=== PATIENT | female | born 1980 | race Caucasian/White ===

== ENCOUNTER 2021-11-02 20:55 | Emergency (ER) | payer BC, MEDICAID, SELFPAY ==
[2021-11-02 20:56] VITALS: BP 132/78; PULSE 87; RESP 16; TEMP 36.6; O2SAT 99; BMI 20.5
--- NOTE | 2021-11-02 21:31 | EDS_ITS ---
HPI History of Present Illness Chief Complaint: Dental Informant: patient Narrative Narrative: Patient states she has bad teeth. About a week ago she started with pain in the right lower jaw. She was seen Tuesday and started on amoxicillin. She states today it seems to be swollen. She had an appointment last Tuesday with a dentist but had to go into work instead. She has been calling to try to get in again. They will call her with any openings. No trouble swallowing. No trouble breathing. No trouble handling secretions. No fevers chills nausea or vomiting. She states nothing makes it better or worse it just hurts all the time. PFSH PFSH Home Medications clindamycin HCl 300 mg capsule (Cleocin HCl) 300 mg PO Q6H #40 caps 11/02/21 [Rx Last Taken Unknown] Allergy/AdvReac Type Severity Reaction Status Date / Time codeine Allergy Hives Verified 11/02/21 20:59 erythromycin base Allergy PT UNSURE Verified 11/02/21 20:59 OF REACTION Penicillins Allergy PT UNSURE Verified 11/02/21 20:59 OF REACTION tramadol Allergy Hives Verified 11/02/21 20:59 ROS ROS ED Constitutional Constitutional ED: Denies chills, fever(s) or subjective Eyes Eyes: Denies change in vision ENT ENT ED: Reports other Details: See history of present illness. ; Denies ear pain, rhinorrhea or sore throat Cardiovascular Cardiovascular: Denies chest pain Respiratory/Chest Respiratory/Chest: Denies cough or dyspnea Gastrointestinal Gastrointestinal: Denies nausea or vomiting Musculoskeletal Musculoskeletal: Denies neck pain Integumentary Denies rash Neurologic Neurologic: Denies headache(s) Hematologic/Lymphatic Hematologic/Lymphatic: Denies easy bleeding or easy bruising Allergic/Immunologic Allergic/Immunologic ED: Denies urticaria EXAM Physical Exam Const Vital Signs: 11/02/21 20:56 Temperature 98 F Temperature Source Temporal Pulse Rate 87 Respiratory Rate 16 Blood Pressure 132/78 H Blood Pressure Mean 96 Pulse Ox 99 Oxygen Delivery Method Room Air Positive well nourished and well developed General Appearance ED: well developed and NAD HEENT HEENT Narrative: Patient has posterior lateral portion of right lower molar that is broken. I see no intraoral swelling. Tongue is normal. No Blessing's angina. It is possible that there is very subtle asymmetry of the external face. I do not see the large amount of swelling that she refers to. I feel no abscess. I feel no lymph nodes. Voice is normal. Eyes EOMs intact bilaterally Neck no lymphadenopathy Resp normal respiratory effort and clear to auscultation bilaterally Cardio regular rate and regular rhythm Neuro Sensorium / Orientation: alert Skin no rashes or lesions noted and no wounds MDM MDM MDM Narrative Medical decision making narrative: Patient is 3 days into antibiotics. She feels that this is worsening. I am not able to see swelling at this point but she is going to brain picker subtle changes quicker than I would. Certainly no sign of internal abscess that could be drained and no sign of Blessing's angina. Voice is normal. We will switch to clindamycin at this time. I will give her meds for pain here. I cannot do an online prescribing report at this time as it will not link up. Dental resource sheet is given. Discharge Plan Triage Chief Complaint: Dental ED Provider: Rico Nunez Dx/Rx/DC Orders Clinical Impression: Pain, dental Instructions: ED Dental Abscess Prescriptions: New clindamycin HCl [Cleocin HCl] 300 mg capsule 300 mg PO Q6H Qty: 40 0RF Primary Care Provider: Brett Bae,Out of Referrals: Brett Bae,Out of [Primary Care Provider] - Activity Restrictions/Additional Instructions: See your dentist as soon as possible. Disposition Disposition: Home, Self Care
[2021-11-02] MEDS: Clindamycin HCl 150 MG Capsule 300 MG PO (22:02)
[2021-11-02] MEDS: oxyCODONE 5 MG Tablet PO (22:03)
[2021-11-02 22:04] VITALS: BP 130/78; PULSE 98; RESP 17; O2SAT 98
== END 2021-11-02 22:06 | disposition home or self-care (01) ==
LOC: ED 21:48
PROVIDERS: Emergency Provider Emergency Medicine; Visit Provider Emergency Medicine
DX: K08.89 Other specified disorders of teeth and supporting structures (principal); R68.84 Jaw pain; S02.5XXA Fracture of tooth (traumatic), initial encounter for closed fracture; X58.XXXA Exposure to other specified factors, initial encounter
CPT/HCPCS: 99283

== ENCOUNTER 2021-11-13 15:40 | Emergency (ER) | payer BC, MEDICAID, SELFPAY ==
[2021-11-13 15:41] VITALS: BP 128/70; PULSE 88; RESP 16; TEMP 36.4; O2SAT 98; BMI 21.2
--- NOTE | 2021-11-13 16:54 | ED.VIS.DENTA ---
HPI History of Present Illness Chief Complaint: Dental Informant: patient Narrative Narrative: Patient is a 41-year-old female with history of anxiety and recent dental extraction presenting with worsening right lower jaw pain and swelling. Patient had a dental extraction of 2 molars 3 days ago. She has having worsening pain and now swelling. She states she is now smoked a cigarette since the extraction. She is currently on clindamycin. She denies difficulty swallowing, fever or chills. She last had ibuprofen at 1030 this morning. She called the office and was told the dentist on vacation now for 2 weeks. Denies any other complaint at this time. Has had some mild bleeding. Describes the pain as throbbing and severe nature. Denies any electrical sensation of pain. PFSH [facility] Medical History Breast cancer Hypertrophic cardiomyopathy ICD (implantable cardioverter-defibrillator) in place Pacemaker Home Medications clindamycin HCl 300 mg capsule (Cleocin HCl) 300 mg PO Q6H #40 caps 11/02/21 [Rx Last Taken Unknown] alprazolam 0.5 mg tablet 0.5 mg PO BID 11/13/21 [History Last Taken Unknown] amoxicillin 875 mg-potassium clavulanate 125 mg tablet 1 tab PO Q12H #14 tabs 11/13/21 [Rx Last Taken Unknown] hydrocodone-acetaminophen 5-325mg 5mg-325mg 1 tab PO Q6H PRN pain 3 days #12 tabs 11/13/21 [Rx Last Taken Unknown] ibuprofen 600 mg tablet 600 mg PO Q6H PRN pain #20 tabs 11/13/21 [Rx Last Taken Unknown] zolpidem 10 mg tablet 10 mg PO DAILY 11/13/21 [History Last Taken Unknown] Allergy/AdvReac Type Severity Reaction Status Date / Time codeine Allergy Hives Verified 11/13/21 15:41 erythromycin base Allergy PT UNSURE Verified 11/13/21 15:41 OF REACTION tramadol Allergy Hives Verified 11/13/21 15:41 Social History Smoking Status: Current every day smoker tobacco type: cigarettes ROS ROS ED Constitutional Constitutional ED: Denies chills or fever(s) Eyes Eyes: Denies change in vision ENT ENT ED: Reports other Details: right lower jaw pain ; Denies ear pain or rhinorrhea Cardiovascular Cardiovascular: Denies chest pain or palpitations Respiratory/Chest Respiratory/Chest: Denies cough Gastrointestinal Gastrointestinal: Denies nausea or vomiting Musculoskeletal Musculoskeletal: Denies arthralgias or myalgias Integumentary Denies rash Neurologic Neurologic: Denies headache(s) Psychiatric Psychiatric: Denies depression Hematologic/Lymphatic Hematologic/Lymphatic: Denies easy bleeding or easy bruising EXAM Physical Exam Const Vital Signs: 11/13/21 15:41 11/13/21 17:52 Temperature 97.6 F L Temperature Source Temporal Pulse Rate 88 Respiratory Rate 16 16 Blood Pressure 128/70 H Blood Pressure Mean 89 Pulse Ox 98 Oxygen Delivery Method Room Air Positive well nourished and well developed General Appearance ED: well developed and NAD HEENT Reports TM's clear HEENT Narrative: Bottom to right molars are absent. There is some granulation tissue at the gumline. No active bleeding or abscess. There is swelling at the angle of the mandible and of the right lower jawline. No fluctuance is appreciated. No overlying erythema of the skin. Sublingual mucosa is soft. Uvula is midline. Negative for trauma Tympanic Membrane ED: Yes TM's clear Mouth ED: Yes oral and palatal mucosa abnormal Mouth: oral and palatal mucosa abnormal Eyes PERRL and EOMs intact bilaterally Neck supple and no JVD Chest Wall inspection of chest normal and palpation of chest normal Resp normal respiratory effort and clear to auscultation bilaterally Cardio regular rate and regular rhythm GI normal to inspection, nondistended, normoactive bowel sounds Extremity normal to inspection Neuro oriented x3 Sensorium / Orientation: alert Psych mental status grossly normal Skin no rashes or lesions noted and no wounds MDM MDM MDM Narrative Medical decision making narrative: Patient evaluated for increased pain and swelling after dental extraction. [facility] report is checked and patient had a 3-day course of [place] prescribed over a week ago. She does not have an active prescription. Is given a dose of Motrin 600 mg as well as [place] in the ER. Will be discharged home with a short course of [place]. Patient is she states that she could have Augmentin and that she is allergic to azithromycin however chart shows that she has a reaction to penicillins. Physical exam not consistent with dry socket. Patient states that she is not allergic to penicillins and this allergies removed from her records. Patient is given return precautions. She verbalizes agreement understand this plan. Discharge Plan Triage Chief Complaint: Dental ED Provider: Simona Fernandez Dx/Rx/DC Orders Clinical Impression: Pain, dental, Status post tooth extraction Instructions: ED Dental Pain Prescriptions: New ibuprofen 600 mg tablet 600 mg PO Q6H PRN (Reason: pain) Qty: 20 0RF amoxicillin-pot clavulanate 875-125 mg tablet 1 tab PO Q12H Qty: 14 0RF hydrocodone-acetaminophen 5-325 mg tablet 1 tab PO Q6H PRN (Reason: pain) 3 Days Qty: 12 0RF No Action clindamycin HCl [Cleocin HCl] 300 mg capsule 300 mg PO Q6H Qty: 40 0RF alprazolam 0.5 mg tablet 0.5 mg PO BID Label Comments: TAKE 1 TABLET BY MOUTH TWICE DAILY zolpidem 10 mg tablet 10 mg PO DAILY Primary Care Provider: Dex Wilkinson Referrals: Dex Wilkinson MD [Primary Care Provider] - Activity Restrictions/Additional Instructions: Stop taking the clindamycin and start taking Augmentin instead. Follow-up with your dentist on Tuesday. Return to emergency room with any worsening symptoms or you have difficulty swallowing. Disposition Disposition: Home, Self Care Discharge Date/Time: 11/13/21 17:53
[2021-11-13] MEDS: Ibuprofen 600 MG Tablet PO (17:00)
[2021-11-13] MEDS: HYDROcodone Bitartrate/Apap 5/325 Tablet PO (17:00)
[2021-11-13] MEDS: Amox/Clavulanate 875 MG Tablet PO (17:51)
[2021-11-13 17:52] VITALS: RESP 16
== END 2021-11-13 17:53 | disposition home or self-care (01) ==
PROVIDERS: Emergency Provider Emergency Medicine; PCP Family Medicine; Visit Provider Emergency Medicine
DX: K08.89 Other specified disorders of teeth and supporting structures (principal); R68.84 Jaw pain; F17.210 Nicotine dependence, cigarettes, uncomplicated; F41.9 Anxiety disorder, unspecified; Z85.3 Personal history of malignant neoplasm of breast; Z95.810 Presence of automatic (implantable) cardiac defibrillator
CPT/HCPCS: 99283

== ENCOUNTER 2021-12-16 22:31 | Emergency (ER) | payer BC, MEDICAID, SELFPAY ==
[2021-12-16 22:32] VITALS: BP 127/77; PULSE 103; RESP 15; TEMP 36.9; O2SAT 100; BMI 21.4
--- NOTE | 2021-12-16 23:11 | EDS_ITS ---
HPI History of Present Illness Chief Complaint: Chest Pain Informant: patient Onset/Context/Timing Onset: Today and Hours Activity at onset: gradual Timing: Continuous Quality: Positive for Aching Location: Substernal Current Severity: Mild Maximum Severity: Mild Worsened By: Nothing Relieved By: Nothing Narrative Narrative: 41-year-old female history of breast cancer prior left mastectomy and hysterectomy. Also had a prior IA with cardiomyopathy. She has a pacemaker defibrillator. States that for last couple days she has had a headache and has a history of migraines and similar. Tonight around 9:00 started getting midsternal chest pain that radiates to both shoulders. She has associated nausea but is unsure that is with the headache or the chest pain. She also states she is dizzy. She denies any vomiting. No fever. No exertional symptoms. She denies any recent exertional chest pain or exertional dyspnea. The chest pain came on the night when she was lying in bed trying to resolve her headache. Prior Similar Symptoms: Yes Recent Illness/Hospitalization: No CVD Risk Factors: Positive for Smoking; Negative for Hypertension or Diabetes PE Risk Factors: Positive for Prior DVT or PE; Negative for Recent Travel/Surgery, Recent Immobilization, Cancer or OCP + Smoking + >/=35 TAD Risk Factors: Negative for Marfan's Syndrome [facility] Medical History Breast cancer Hypertrophic cardiomyopathy ICD (implantable cardioverter-defibrillator) in place Pacemaker Home Medications alprazolam 0.5 mg tablet 0.5 mg PO BID 11/13/21 [History Last Taken Unknown] zolpidem 10 mg tablet 10 mg PO DAILY 11/13/21 [History Last Taken Unknown] Allergy/AdvReac Type Severity Reaction Status Date / Time codeine Allergy Hives Verified 12/16/21 22:36 erythromycin base Allergy PT UNSURE Verified 12/16/21 22:36 OF REACTION levofloxacin Allergy PT UNSURE Verified 12/16/21 22:36 OF REACTION tramadol Allergy Hives Verified 12/16/21 22:36 Surgical History History of cholecystectomy Hx of appendectomy Social History Smoking Status: Current every day smoker tobacco type: cigarettes ROS ROS ED ROS Narrative Headache. Chest pain. Nausea. Review of Systems ROS Unobtainable: Denies due to encephalopathy Constitutional Constitutional ED: Denies chills or fever(s) Eyes Eyes: Reports none ENT ENT ED: Denies ear pain or rhinorrhea Cardiovascular Cardiovascular: Reports as per HPI and chest pain; Denies palpitations or racing heartbeat Respiratory/Chest Respiratory/Chest: Denies cough or dyspnea Gastrointestinal Gastrointestinal: Reports nausea; Denies abdominal pain, constipation, diarrhea, melena or vomiting Genitourinary Genitourinary ED: Denies dysuria Musculoskeletal Musculoskeletal: Denies arthralgias Integumentary Denies abscess Neurologic Neurologic: Reports headache(s) Psychiatric Psychiatric: Denies anxiety Endocrine Endocrinology: Denies cold intolerance Hematologic/Lymphatic Hematologic/Lymphatic: Denies easy bleeding Allergic/Immunologic Allergic/Immunologic ED: Denies mouth swelling or tongue swelling EXAM Physical Exam Narrative Exam Narrative: 41-year-old female vital signs stable afebrile. Pulse ox 9% on room air no signs hypoxia. H EENT exam unremarkable. Neck nontender no meningismus. No lymphadenopathy. Lungs clear to auscultation bilaterally. Heart regular rhythm rate about 100 no murmur. Chest were nontender. Abdomen soft nontender. Moving all 4 extremities. Radial pulses equal symmetrical. Calves are nontender without edema or cords. Neurologically she is awake alert with no focal motor deficits. Benign exam. Const Vital Signs: 12/16/21 22:32 12/16/21 22:45 12/16/21 23:24 Temperature 98.5 F Temperature Source Temporal Pulse Rate 103 H Respiratory Rate 15 Respiratory Effort Normal Non-Labored Blood Pressure 127/77 H Blood Pressure Mean 93 Pulse Ox 100 Oxygen Delivery Method Room Air Room Air 12/16/21 23:36 12/17/21 00:36 12/17/21 01:00 Temperature Temperature Source Pulse Rate 84 72 72 Respiratory Rate 19 H 21 H 21 H Respiratory Effort Blood Pressure 113/63 109/53 L 95/63 Blood Pressure Mean 79 71 73 Pulse Ox Oxygen Delivery Method Room Air Room Air Positive well nourished and well developed; Negative for obese, cachectic, contractures or unkempt General Appearance ED: well developed and NAD; Negative for unkempt, cachectic, contractures or pallor Nutritional Appearance: Negative for cachectic or obese HEENT Reports moist mucous membranes normocephalic and atraumatic; Negative for trauma or tenderness Eyes PERRL and EOMs intact bilaterally General Eye ED: Negative for pale conjunctiva or scleral icterus Neck no lymphadenopathy, supple and no JVD General: Negative for tenderness Chest Wall inspection of chest normal and palpation of chest normal Chest: Negative for tenderness Resp normal respiratory effort and clear to auscultation bilaterally Effort and Inspection: Negative for respiratory distress Auscultation: Negative for rales, rhonchi or wheezes Cardio regular rate, regular rhythm, S1 normal heart sound, S2 normal heart sound and no murmurs Rate: Negative for bradycardia Rhythm: Negative for abnormal rhythm GI normal to inspection, nondistended, normoactive bowel sounds, soft to palpation, non-tender, non-distended and no masses Back/Spine no CVA tenderness and no thoracic nor lumbar tenderness General Back: Negative for CVA tenderness Cervical Spine: Negative for cervical spine tenderness Extremity normal to inspection General Extremety ED: Negative for edema or pulses abnormal General Extremity: Negative for edema or pulses abnormal Neuro oriented x3, CN's II-XII intact bilaterally and no sensory deficits noted Sensorium / Orientation: awake, alert, oriented to person, oriented to place and oriented to time; Negative for confused, lethargic or stuporous Motor Exam: strength 5/5 throughout Psych mental status grossly normal Appearance: Negative for unkempt Attitude: No agitated Mood & Affect: Negative for depressed, anxious or tearful Skin no rashes or lesions noted and no wounds General Skin Exam: Negative for jaundice or pallor Rashes: No rashes noted Trauma: Negative for abrasion or laceration Heart Score History: Moderately Suspicious ECG: Normal Age: </= 45 years Risk Factors: >/= 3 Risk Factors or History of CAD Troponin: </= Normal Limit Score: 3 MDM MDM MDM Narrative Medical decision making narrative: 41-year-old female with chest pain and headache. She is a history of migraines. She also has a history of prior IA with cardiomyopathy and defibrillator. She is on no blood thinners. Exam benign. She undergo cardiac work-up. For her headache she will be treated with IV fluids, Toradol and Zofran. Repeat exam at midnight patient was doing well. Repeat exam at 12:35 a.m. she is doing well. She has been instructed on all of her test results so far. Her headache is improving with Zofran, IV fluids and Toradol. A 2-hour troponin will be done. EKGs x2 have been unremarkable. Patient states that her heart attacks in the past they thought were secondary to chemotherapy. She had no blockage. She has never had stents or CABG. She has had no recent stress test or echo. We given morphine for pain. We will do a 3-hour troponin. Her headache is much improved with the medications. Her exam remains normal. Exam at 2 AM patient doing well. Headache is resolved. Chest pain has resolved with the IV morphine. Awaiting 3-hour troponin. She is resting comfortably. Repeat exam patient doing well at 3:30 AM. Went over all of her test results. Clinically this does not appear to be cardiac. She has had no recent exertional chest pain. She has no risk factors for DVT or PE. She will be discharged to home with outpatient follow-up. Lab Data Attestation: I reviewed the patient's lab results. Lab results narrative: CBC shows a white count 11.1. H&H of 14 and 43. Platelets 227. Chest x-ray unremarkable. EKGs x2 unremarkable. Electrolytes unremarkable gap of 6 normal BUN and creatinine. Glucose 114. Initial troponin 35. Will be a repeat 3-hour troponin done. 3-hour troponin returned was 41. Labs: Laboratory Results - last 24 hr 12/16/21 12/16/21 12/17/21 23:18 23:18 02:40 WBC 11.1 H RBC 4.49 Hgb 14.4 Hct 43.6 MCV 97.1 MCH 32.1 H MCHC 33.0 RDW Std Deviation 46.6 H RDW Coeff of Damon 13.0 Plt Count 227 MPV 11.5 Immature Gran % (Auto) 0.900 Neut % (Auto) 78.7 H Lymph % (Auto) 8.4 L [place] % (Auto) 10.1 H Eos % (Auto) 1.2 Baso % (Auto) 0.7 Absolute Neuts (auto) 8.7 H Absolute Lymphs (auto) 0.93 Nucleated RBC % 0 Sodium 138 Potassium 4.2 Chloride 108 H Carbon Dioxide 24.0 Anion Gap 6 BUN 15 Creatinine 0.85 Estim Creat Clear Calc 74.45 Est GFR (MDRD) Af Amer 94 Est GFR (MDRD) Non-Af 77 BUN/Creatinine Ratio 17.6 Glucose 114 H Calcium 9.5 Troponin I High Sens 35 41 Radiography Chest X-Ray - ED: 1 View, Read by ED Physician, Heart, Lungs, Mediastinum, Bony Structures, No Acute Disease and Chronic Changes Diagnostic Testing: Clinical Impression(s) from Imaging Studies Chest X-Ray 12/16/21 23:17 IMPRESSION: No focal infiltrate or edema. Probable displacement of pacemaker lead. Electronically Signed: Bimal Riley MD at 23:58 EDT , Chest x-ray, portable, single view interpreted by myself shows no acute abnormality. Normal cardiac silhouette. Normal mediastinum. Normal lung pandey. Right-sided pacemaker defibrillator. Rhythm Strip Rhythm Strip: Sinus Rhythm Rate: 90 Ectopy: None EKG Initial EKG: Attestation: I personally reviewed and interpreted this EKG as follows: Interpretation: Sinus Rhythm and No Acute Injury Pattern Comments: Normal sinus rhythm rate of 90 no acute signs of IA or ischemia. Follow-up EKG: Attestation: I personally reviewed and interpreted this EKG as follows: Interpretation: Sinus Rhythm and No Acute Injury Pattern Comments: Repeat second EKG done at 000 5 AM. Normal sinus rhythm rate of 74 no acute signs of IA or ischemia and unchanged from the first. Discharge Plan Triage Chief Complaint: Chest Pain Other Complaint: General Illness ED Provider: Tu Horne Dx/Rx/DC Orders Clinical Impression: Chest pain, Migraine Instructions: ED Chest Pain, Uncertain Cause Prescriptions: No Action alprazolam 0.5 mg tablet 0.5 mg PO BID Label Comments: TAKE 1 TABLET BY MOUTH TWICE DAILY zolpidem 10 mg tablet 10 mg PO DAILY Primary Care Provider: Dex Wilkinson Referrals: Dex Wilkinson MD [Primary Care Provider] - 3-5 Days if not improving Activity Restrictions/Additional Instructions: Return if feeling worse. Follow-up with your doctor if not improving. All your test tonight were unremarkable. Disposition Disposition: Home, Self Care
--- NOTE | 2021-12-16 23:17 | RAD_ITS ---
STUDY: X-RAY CHEST REASON FOR EXAM: Female, 41 years old. Chest pain TECHNIQUE: Single AP portable view of the chest. COMPARISON: None. FINDINGS: Unipolar pacemaker on the right with probable proximal displacement of the ventricular lead. Correlation with prior exams recommended. The lungs are clear and expanded. There is no demonstrated pleural abnormality. Normal size heart. Normal mediastinum and car. Normal visualized pulmonary arteries. Normal visualized aortic arch and descending thoracic aorta. Normal visualized thoracic spine. Normal visualized ribs, clavicles, and shoulders. There is no demonstrated abnormality of the visualized soft tissue structures of the upper abdomen. RAD/Chest 1 View (Portable) IMPRESSION: No focal infiltrate or edema. Probable displacement of pacemaker lead. Electronically Signed: Bimal Riley MD at 23:58 EDT ,
[2021-12-16] MEDS: 0.9% Normal Saline 1,000 ML 500 ML IV (23:24)
[2021-12-16] MEDS: Ondansetron 4 MG/2 ML Vial IV (23:25)
[2021-12-16] MEDS: Ketorolac 30 MG/ML Syringe IV (23:25)
[2021-12-16 23:36] VITALS: BP 113/63; PULSE 84; RESP 19
[2021-12-16 23:43] LABS: Absolute Lymphocyte Count 0.93 X10^3/uL (0.83-4.51); Absolute Neutrophil Count 8.7 X10^3/uL (2.0-7.7); Basophil# 0.08 X10^3/uL; Basophil% 0.7 % (0-1); Eosinophil# 0.13 X10^3/uL; Eosinophils% 1.2 % (0-5); Hematocrit 43.6 % (37-47); Hemoglobin 14.4 g/dL (12.0-15.0); Lymphocyte # 0.93 X10^3/ul (0.83-4.51); Lymphocyte % 8.4 % (19-41); Mean Corpuscular Hgb 32.1 pg (27.0-32.0); Mean Corpuscular Volume 97.1 fL (81-99); Mean Platelet Vol. 11.5 fl (6.2-12.0); Monocyte# 1.12 X10^3/uL; Monocyte% 10.1 % (0-10); NRBC Flagged by Analyzer 0 % (0-5); Neutrophil % 78.7 % (47-70); Platelet Count 227 K/mm3 (150-450); RBC Distribution Width SD 46.6 fl (35.1-43.9); Red Blood Count 4.49 M/mm3 (4.2-5.4); White Blood Count 11.1 K/mm3 (4.4-11.0)
[2021-12-16 23:51] LABS: Anion Gap 6 (5-15); BUN 15 mg/dL (7-18); BUN/Creat Ratio 17.6 RATIO (10-20); Calcium,Total 9.5 mg/dL (8.5-10.1); Chloride 108 mmol/L (98-107); Creatinine, Serum 0.85 mg/dL (0.55-1.02); EST Glomerular Filtration Rate 77 mL/min (>60); Est Glom Filt Rate - Afr Amer 94 mL/min (>60); Estimated Creatinine Clearance 74.45 ml/min; Glucose 114 mg/dL (74-106); Potassium 4.2 mmol/L (3.5-5.1); Sodium Level 138 mmol/L (136-145); Troponin-I HS (w/2H Reflex) 35 pg/mL (3.0-54.0)
[2021-12-17 00:36] VITALS: BP 109/53; PULSE 72; RESP 21
[2021-12-17 01:00] VITALS: BP 95/63; PULSE 72; RESP 21
[2021-12-17] MEDS: morphine 8 MG/ML Syringe 6 MG IV (01:01)
[2021-12-17 01:23] LABS: Reflex Troponin-HS? (from REC) Y
[2021-12-17 03:25] LABS: Troponin-I HS 41 pg/mL (3.0-54.0)
[2021-12-17 03:42] VITALS: BP 98/67; PULSE 70; RESP 18; O2SAT 97
== END 2021-12-17 03:43 | disposition home or self-care (01) ==
PROVIDERS: Emergency Provider Emergency Medicine; PCP Family Medicine; Visit Provider Emergency Medicine
DX: R07.9 Chest pain, unspecified (principal); G43.909 Migraine, unspecified, not intractable, without status migrainosus; F17.210 Nicotine dependence, cigarettes, uncomplicated; I25.2 Old myocardial infarction; Z95.0 Presence of cardiac pacemaker
CPT/HCPCS: 71045; 80048; 84484; 85025; 93005; 96374; 96375; 99284; J7030; A4216; J2405

== ENCOUNTER 2022-03-09 09:18 | Emergency (ER) | payer BC, MEDICAID, SELFPAY ==
[2022-03-09 09:19] VITALS: BP 119/68; PULSE 86; RESP 16; TEMP 36.6; O2SAT 100; BMI 21.2
--- NOTE | 2022-03-09 09:29 | EDS_ITS ---
HPI History of Present Illness Chief Complaint: Lower Extremity Injury Narrative Narrative: 41-year-old female past medical history of remote breast cancer and heart condition presents with injury to her left knee that she sustained yesterday after mechanical fall. She states that she slipped on the ice on the sidewalk between her house and her car. She may have fallen directly onto her left knee and now has pain mainly on the medial aspect. While she may have hit her right knee, she is able to flex and extend at and walk without difficulty. She is here for evaluation of her left knee as she has problems fully extending her left knee secondary to pain. Pain is worse with weightbearing and walking. 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 She is taking Advil as an analgesic. She denies hitting her head, or loss of consciousness and denies other injury. [facility] Medical History Breast cancer Hypertrophic cardiomyopathy ICD (implantable cardioverter-defibrillator) in place Pacemaker Home Medications alprazolam 0.5 mg tablet 0.5 mg PO BID 11/13/21 [History Last Taken Unknown] zolpidem 10 mg tablet 10 mg PO DAILY 11/13/21 [History Last Taken Unknown] Allergy/AdvReac Type Severity Reaction Status Date / Time codeine Allergy Hives Verified 03/09/22 09:18 erythromycin base Allergy PT UNSURE Verified 03/09/22 09:18 OF REACTION levofloxacin Allergy PT UNSURE Verified 03/09/22 09:18 OF REACTION tramadol Allergy Hives Verified 03/09/22 09:18 Surgical History History of cholecystectomy Hx of appendectomy Social History Smoking Status: Current every day smoker tobacco type: cigarettes ROS ROS ED ROS Narrative Constitutional: No fever, no chills. HEENT: No sore throat. No neck pain. No loss of vision. No rhinorrhea. Cardiovascular: No chest pain. No palpitations. No pedal edema. Respiratory: No cough, no shortness of breath. Abdominal: No abdominal pain. No nausea. No vomiting. Genitourinary: No dysuria. No hematuria. Musculoskeletal: No myalgias. Left medial knee pain worse with movement. Neurologic: No headaches. No dizziness. No lightheadedness. Skin: No rash. No change in color. Psychiatric: No depression. No anxiety. EXAM Physical Exam Narrative Exam Narrative: Afebrile. Vital signs noted. HEENT: Normocephalic. Atraumatic. PERRL, EOMI. Neck soft and supple. No point tenderness or step off. Cardiovascular: Regular rate and rhythm. No murmurs, rubs, or gallops appreciated. Respiratory: No tachypnea. Lungs clear to auscultation bilaterally. Gastrointestinal: Abdomen soft, nontender, with normoactive bowel sounds. No rebound or guarding. Neurological: Awake. Alert. Nonfocal, nonlateralizing. Skin: No rash. Normal color. No pallor. Musculoskeletal: No pedal edema. Range of motion of left knee mildly limited secondary to pain. Held in mild flexion. Able to lift leg off bed without difficulty. Mild tenderness to palpation left medial meniscal and collateral ligament areas. Negative anterior drawer test. Neurovascularly intact distally with palpable dorsalis pedis pulse. EHL intact. Const Vital Signs: 03/09/22 09:19 Temperature 97.8 F Temperature Source Temporal Pulse Rate 86 Respiratory Rate 16 Blood Pressure 119/68 Blood Pressure Mean 85 Pulse Ox 100 Oxygen Delivery Method Room Air MDM MDM MDM Narrative Medical decision making narrative: I do feel that she may have more of an internal derangement of her left knee including the medial meniscus possibly with partial tear. X-rays were obtained of the left knee in 4 views and interpreted by myself. My interpretation shows no evidence of fracture or effusion. Radiology confirms. At this point in time, she declined crutches. She will continue ice and elevation at home and follow-up with her primary care physician. She was told that given that she may have an internal derangement of her knee she may require orthopedics follow-up or further outpatient imaging. I feel she be discharged safely home with [facility] w-up. Return instructions were reviewed. Disposition is discharged home in stable condition. Radiography Diagnostic Testing: Clinical Impression(s) from Imaging Studies Knee X-Ray 03/09/22 09:50 IMPRESSION: Normal x-ray examination of the knee. Electronically Signed: Lemuel Rodriguez MD at 10:00 [facility] , Discharge Plan Triage Chief Complaint: Lower Extremity Injury ED Provider: Rubin Briggs Dx/Rx/DC Orders Clinical Impression: Sprain of left knee, Fall from slipping on ice Instructions: ED Knee Pain of Uncertain Cause, ED Knee Sprain Prescriptions: No Action alprazolam 0.5 mg tablet 0.5 mg PO BID Label Comments: TAKE 1 TABLET BY MOUTH TWICE DAILY zolpidem 10 mg tablet 10 mg PO DAILY Primary Care Provider: Dex Wilkinson Referrals: Dex Wilkinson MD [Primary Care Provider] - 1 Week if not improving Disposition Disposition: Home, Self Care
--- NOTE | 2022-03-09 09:50 | RAD_ITS ---
STUDY: X-RAY - LEFT KNEE REASON FOR EXAM: Female, 41 years old. trauma, pain TECHNIQUE: 4 view(s) of the knee. COMPARISON: None. FINDINGS: Normal visualized distal femur. Normal visualized proximal tibia and fibula. Normal proximal tibiofibular articulation. Normal medial femorotibial compartment. Normal lateral femorotibial compartment. Normal patellofemoral articulation. The soft tissue structures are unremarkable. RAD/Knee 4 or More Views IMPRESSION: Normal x-ray examination of the knee. Electronically Signed: Lemuel Rodriguez MD at 10:00 EST ,
[2022-03-09 10:45] VITALS: RESP 16
== END 2022-03-09 10:46 | disposition home or self-care (01) ==
PROVIDERS: Emergency Provider Emergency Medicine; PCP Family Medicine; Visit Provider Emergency Medicine
DX: S83.92XA Sprain of unspecified site of left knee, initial encounter (principal); I42.2 Other hypertrophic cardiomyopathy; W00.0XXA Fall on same level due to ice and snow, initial encounter; Y92.480 Sidewalk as the place of occurrence of the external cause; F17.210 Nicotine dependence, cigarettes, uncomplicated; Z85.3 Personal history of malignant neoplasm of breast; Z95.810 Presence of automatic (implantable) cardiac defibrillator; Z79.899 Other long term (current) drug therapy
CPT/HCPCS: 73564; 99282

== ENCOUNTER 2022-12-25 21:19 | Emergency (ER) | payer BC, SELFPAY ==
[2022-12-25 21:20] VITALS: BP 132/88; PULSE 88; RESP 19; TEMP 36.6; O2SAT 99; BMI 21.1
--- NOTE | 2022-12-25 21:29 | EKG12_ITS ---
Test Reason : CP Blood Pressure : / mmHG Vent. Rate : 084 BPM Atrial Rate : 084 BPM P-R Int : 150 ms QRS Dur : 094 ms QT Int : 376 ms P-R-T Axes : 063 -75 085 degrees QTc Int : 444 ms Normal sinus rhythm Biatrial enlargement RSR' or QR pattern in V1 suggests right ventricular conduction delay Left anterior fascicular block Possible Lateral infarct , age undetermined Abnormal ECG Confirmed by TARUN CINTRON, MICHAEL ([id number]), non linear editor ADAMA EVERETT ([id number]) on 12/28/2022 7:40:39 AM Referred By: Babar Wood Confirmed By:MICHAEL MCNEIL MD
[2022-12-25 21:37] VITALS: O2SAT 99
--- NOTE | 2022-12-25 21:40 | RAD_ITS ---
INDICATION: chest pain EXAMINATION/TECHNIQUE: X-RAY - XR Chest 1 View COMPARISON: December 16, 2021 FINDINGS: LINES/DEVICES: Stable right-sided pacemaker. LUNGS: Right basilar pleural thickening/mild effusion at the costophrenic angle. No pneumothorax. MEDIASTINUM AND CARDIOVASCULAR STRUCTURES: Cardiac silhouette not enlarged. Central airways and mediastinal contour are unremarkable. BONES AND SOFT TISSUES: Unremarkable. RAD/Chest 1 View (Portable) IMPRESSION: Right basilar pleural thickening/mild effusion at the costophrenic angle. Electronically Signed: Tyson Mckenna DO at 23:26 EDT Reading Location ID and State: [facility] / [place] Tel [phone], Service support ,
[2022-12-25 22:12] LABS: Absolute Lymphocyte Count 1.77 X10^3/uL (0.83-4.51); Absolute Neutrophil Count 9.1 X10^3/uL (2.0-7.7); Basophil# 0.07 X10^3/uL; Basophil% 0.6 % (0-1); Eosinophil# 0.13 X10^3/uL; Eosinophils% 1.1 % (0-5); Hematocrit 40.4 % (37-47); Hemoglobin 13.1 g/dL (12.0-15.0); Lymphocyte # 1.77 X10^3/ul (0.83-4.51); Lymphocyte % 15.2 % (19-41); Mean Corp Hgb Conc 32.4 g/dL (32-36); Mean Corpuscular Hgb 31.6 pg (27.0-32.0); Mean Corpuscular Volume 97.3 fL (81-99); Mean Platelet Vol. 10.7 fl (6.2-12.0); Monocyte# 0.56 X10^3/uL; Monocyte% 4.8 % (0-10); NRBC Flagged by Analyzer 0 % (0-5); Neutrophil # 9.08 X10^3/uL (2.7-7.7); Platelet Count 271 K/mm3 (150-450); RBC Distribution Width CV 13.5 % (11.6-14.6); RBC Distribution Width SD 48.4 fl (35.1-43.9); Red Blood Count 4.15 M/mm3 (4.2-5.4); White Blood Count 11.7 K/mm3 (4.4-11.0)
[2022-12-25 22:20] VITALS: PULSE 74
[2022-12-25 22:30] LABS: Anion Gap 6 (5-15); BUN 13 mg/dL (7-18); Calcium,Total 8.9 mg/dL (8.5-10.1); Chloride 110 mmol/L (98-107); EST Glomerular Filtration Rate 64 mL/min (>60); Est Glom Filt Rate - Afr Amer 78 mL/min (>60); Estimated Creatinine Clearance 62.64 ml/min; Glucose 100 mg/dL (74-106); Potassium 4.2 mmol/L (3.5-5.1); Sodium Level 140 mmol/L (136-145); Troponin-I HS (w/2H Reflex) 46 pg/mL (3.0-54.0)
[2022-12-25] MEDS: Aspirin 325 MG Tablet PO (22:38)
[2022-12-25] MEDS: Ondansetron 4 MG/2 ML Vial IV (22:38)
[2022-12-25] MEDS: Morphine 4 MG/ML Syringe IV (22:38)
[2022-12-25 23:00] LABS: D-Dimer Quantitative (DVT/PE) 0.65 FEU/ug/m (0.27-0.49)
[2022-12-25 23:20] VITALS: BP 116/70; PULSE 73; RESP 16; O2SAT 99
[2022-12-25 23:52] LABS: International Normalized Ratio 1.1; Partial Thromboplast Time 33.7 Seconds (24.1-36.2); Prothrombin Time (Protime)PT. 14.1 SECONDS (11.7-14.9)
[2022-12-26] VITALS: BP 129/77; PULSE 65; RESP 18; O2SAT 98
[2022-12-26 00:11] LABS: Reflex Troponin-HS? (from REC) Y
--- NOTE | 2022-12-26 00:15 | CT_ITS ---
EXAM: CT ANGIOGRAPHY CHEST WITHOUT AND WITH INTRAVENOUS CONTRAST CLINICAL INDICATION: chest pain with elevated d-dimer TECHNIQUE: Helically acquired angiography images were obtained of the chest without and with intravenous contrast. This CT exam was performed using one or more of the following dose reduction techniques: automated exposure control, adjustment of the mA and/or kV according to patient size, and/or use of iterative reconstruction technique. MIP reconstructed images were created and reviewed. CONTRAST: IV 75mL Isovue-370 RADIATION DOSE: Total DLP: 125.60 mGy-cm. COMPARISON: Portable chest radiograph of 12/25/2022. FINDINGS: PULMONARY ARTERIES: Unremarkable. Normal in caliber. No evidence of pulmonary embolism. AORTA: The thoracic aorta is normal in caliber and demonstrates no intimal flap. GREAT VESSELS OF AORTIC ARCH: Unremarkable. Normal in caliber. No evidence of dissection. LUNGS AND PLEURAL SPACES: Minimal biapical pleural parenchymal scarring. Thickening of the pulmonary interstitial markings, consistent with interstitial edema. Dependent atelectasis. Minimal bibasilar subpleural groundglass opacities due to atelectasis versus minimal alveolar edema. Trace of pleural fluid on the left. There is small right pleural effusion, extending into the fissures. Pleural thickening along the medial aspect of the right lower lung, in the paraspinal region. No calcified pleural plaques. Bilateral bronchial wall thickening indicating bronchial wall inflammation. No mass. No pneumothorax. HEART: No significant pericardial effusion. No coronary artery calcification is visualized. MEDIASTINUM: Right hilar and subcarinal adenopathy are present. Questionable pre-tracheal adenopathy, with this area partially obscured by streak artifact. Soft tissue fullness noted in the para-aortic region, consistent with small lymph nodes measuring up to 7 mm in short axis diameter. No left hilar adenopathy. Esophagus is unremarkable. No hiatal hernia. THYROID: Unremarkable. No thyroid lesions. BONES/JOINTS: No acute osseous abnormality. Benign cavernous hemangioma bone noted within the T8 vertebral body. Lower thoracic degenerative spurring is present. No suspicious lytic or blastic abnormality. INTRAPERITONEAL SPACE: Reflux of contrast into the IVC and hepatic veins. A trace of perihepatic ascites is present. Visualized portions of the liver, spleen, adrenal glands and left renal upper pole are unremarkable. No pneumoperitoneum noted. TUBES, LINES AND DEVICES: Cardiac pacemaker/internal defibrillator in place, with associated streak artifact. CT/CTA Chest W/WO Contrast IMPRESSION: 1. Negative for PE. 2. No thoracic aortic dissection. 3. Findings of cardiac decompensation including interstitial edema and minimal pleural effusions. 4. Peribronchial cuffing which could be due to interstitial edema versus bronchitis. 5. No pneumonia. Electronically Signed: Robin Monzon MD at 1:11 EDT ,
[2022-12-26] MEDS: 0.9% Normal Saline (500mL Bag) 500 ML 999 ML IV (00:26)
[2022-12-26] MEDS: HYDROmorphone 0.5 MG/0.5 ML SYRINGE IV (00:26)
[2022-12-26 00:53] LABS: Troponin-I HS 48 pg/mL (3.0-54.0)
[2022-12-26 01:00] VITALS: PULSE 79; RESP 16; O2SAT 98
--- NOTE | 2022-12-26 01:32 | EDS_ITS ---
HPI History of Present Illness Chief Complaint: Chest Pain Informant: patient and spouse/S.O. Narrative Narrative: Patient is a 42-year-old female with past medical history of hypertrophic obstructive cardiomyopathy and previous pulmonary embolus. She states that she does not follow with cardiology any further and is no longer on anticoagulation. 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 She denies any trauma and she states that the activity was not excessive for her. She states that because of her hypertrophic obstructive cardiomyopathy she typically has chest pain but this felt different and secondary to this comes in for evaluation [facility] Medical History (Updated 12/26/22 @ 01:[address] Babar Wood, ) Asthma Breast cancer Collapsed lung History of blood clots Hypertrophic cardiomyopathy ICD (implantable cardioverter-defibrillator) in place Pacemaker Home Medications alprazolam 0.5 mg tablet 0.5 mg PO BID 11/13/21 [History Last Taken Unknown] zolpidem 10 mg tablet 10 mg PO DAILY 11/13/21 [History Last Taken Unknown] ondansetron 4 mg disintegrating tablet 4 mg PO TID PRN nausea and vomiting #21 tabs 12/26/22 [Rx Last Taken Unknown] oxycodone-acetaminophen 5 mg-325 mg tablet (Percocet) 1 tab PO Q6H PRN pain 3 days #12 tabs 12/26/22 [Rx Last Taken Unknown] Allergy/AdvReac Type Severity Reaction Status Date / Time codeine Allergy Hives Verified 12/25/22 21:23 erythromycin base Allergy PT UNSURE Verified 12/25/22 21:23 OF REACTION levofloxacin Allergy PT UNSURE Verified 12/25/22 21:23 OF REACTION tramadol Allergy Hives Verified 12/25/22 21:23 Surgical History History of cholecystectomy Hx of appendectomy Social History (Updated 12/25/22 @ 21:23 by Hayde Quintero) household members: family current occupational status: employed Smoking Status: Current every day smoker tobacco type: cigarettes ROS ROS ED Constitutional Constitutional ED: Denies chills or fever(s) ENT ENT ED: Denies sore throat Cardiovascular Cardiovascular: Reports chest pain; Denies palpitations or racing heartbeat Respiratory/Chest Respiratory/Chest: Reports dyspnea; Denies cough Gastrointestinal Gastrointestinal: Denies abdominal pain, diarrhea, nausea or vomiting Genitourinary Genitourinary ED: Denies dysuria Musculoskeletal Musculoskeletal: Denies myalgias Integumentary Denies rash Neurologic Neurologic: Denies headache(s) Hematologic/Lymphatic Hematologic/Lymphatic: Denies easy bleeding or easy bruising EXAM Physical Exam Const Vital Signs: 12/25/22 21:20 12/25/22 21:37 12/25/22 23:20 Temperature 97.9 F Temperature Source Temporal Pulse Rate 88 73 Respiratory Rate 19 H 16 Blood Pressure 132/88 H 116/70 Blood Pressure Mean 102 85 Pulse Ox 99 99 99 Oxygen Delivery Method Room Air Room Air Room Air 12/25/22 22:20 12/26/22 00:00 12/26/22 01:00 Temperature Temperature Source Pulse Rate 74 65 79 Respiratory Rate 18 16 Blood Pressure 129/77 H Blood Pressure Mean 94 Pulse Ox 98 98 Oxygen Delivery Method Room Air Room Air 12/26/22 01:43 Temperature Temperature Source Pulse Rate 75 Respiratory Rate 15 Blood Pressure Blood Pressure Mean Pulse Ox 98 Oxygen Delivery Method Positive well nourished and well developed General Appearance ED: well developed; Negative for pallor HEENT HEENT Narrative: Normocephalic atraumatic Eyes PERRL and EOMs intact bilaterally General Eye ED: Negative for scleral icterus Neck supple and no JVD Neck Narrative: No nuchal rigidity or meningeal signs noted Chest Wall Chest Narrative: Patient does have pain on palpation of her anterior chest wall without bony deformity or crepitance but she states that this is not the same pain she has been experiencing Resp normal respiratory effort and clear to auscultation bilaterally Cardio regular rate and regular rhythm Rate: other Other Details: Radial and carotid pulses are equal and symmetric GI normal to inspection, nondistended, normoactive bowel sounds, non-tender, non- distended and no masses GI Narrative: No voluntary guarding or rigidity no pulsatile mass or fluid wave Auscultation: normoactive bowel sounds Palpation: soft Extremity normal to inspection Extremity Narrative: No asymmetric edema no pitting edema negative Homans' sign bilaterally Neuro oriented x3, CN's II-XII intact bilaterally and no sensory deficits noted Sensorium / Orientation: alert Motor Exam: strength 5/5 throughout Psych mental status grossly normal Skin no rashes or lesions noted General Skin Exam: Negative for jaundice or pallor MDM MDM MDM Narrative Medical decision making narrative: Patient presented to the ER with stable vitals and in no acute distress. She reported a significant cardiac history and hypertrophic obstructive cardiomyopathy as well as previous PE. Differential diagnosis for her chest pain is acute coronary syndrome versus pulmonary embolus versus pneumothorax versus pneumonia versus musculoskeletal chest wall pain/costochondritis. Basic labs were ordered and patient's troponin initially was 46 with a 2-hour delta increasing by 2 points to a value of 48 which is not clinically significant. Chart review reveals that the values in the 40s are similar to roughly 1 year ago when she was worked up for chest pain as well. Patient's D-dimer was slightly elevated and with her history of PE a CTA was then obtained. This revealed interstitial edema with small pleural effusions consistent with her his tory of HOCM but no PE or dissection or pneumonia or pneumothorax. On reevaluation the patient does report improvement of her pain and vitals remained stable. Therefore at this time as the patient's troponin is at baseline and CTA does not reveal dissection or pneumothorax and patient's had improvement of symptoms I do not feel there is need for inpatient work-up and she can be discharged and follow-up on an outpatient basis History & Record Review Discussion w/independent historian: Patient and Significant other Lab Data Attestation: I reviewed the patient's lab results. Labs: Laboratory Results - last 24 hr 12/25/22 12/25/22 12/26/22 22:07 22:40 00:25 WBC 11.7 H RBC 4.15 L Hgb 13.1 Hct 40.4 MCV 97.3 MCH 31.6 MCHC 32.4 RDW Std Deviation 48.4 H RDW Coeff of Damon 13.5 Plt Count 271 MPV 10.7 Immature Gran % (Auto) 0.300 Neut % (Auto) 78.0 H Lymph % (Auto) 15.2 L [place] % (Auto) 4.8 Eos % (Auto) 1.1 Baso % (Auto) 0.6 Absolute Neuts (auto) 9.1 H Absolute Lymphs (auto) 1.77 Nucleated RBC % 0 PT 14.1 INR 1.1 APTT 33.7 D-Dimer Quant (PE/DVT) 0.65 H* Sodium 140 Potassium 4.2 Chloride 110 H Carbon Dioxide 24.0 Anion Gap 6 BUN 13 Creatinine 1.00 Estim Creat Clear Calc 62.64 Est GFR (MDRD) Af Amer 78 Est GFR (MDRD) Non-Af 64 BUN/Creatinine Ratio 13.0 Glucose 100 Calcium 8.9 Magnesium 2.0 Troponin I High Sens 46 48 Radiography Diagnostic Testing: Clinical Impression(s) from Imaging Studies Chest X-Ray 12/25/22 21:40 IMPRESSION: Right basilar pleural thickening/mild effusion at the costophrenic angle. Electronically Signed: Tyson Mckenna DO at 23:26 EDT , Chest CTA 12/26/22 00:15 IMPRESSION: 1. Negative for PE. 2. No thoracic aortic dissection. 3. Findings of cardiac decompensation including interstitial edema and minimal pleural effusions. 4. Peribronchial cuffing which could be due to interstitial edema versus bronchitis. 5. No pneumonia. Electronically Signed: Robin Monzon MD at 1:11 EDT , 1 view chest x-ray as interpreted by the emergency medicine physician reveals mild bilateral pleural effusions without acute infiltrate or pneumothorax Discharge Plan Triage Chief Complaint: Chest Pain ED Provider: Babar Wood Dx/Rx/DC Orders Clinical Impression: Nonspecific chest pain, HOCM (hypertrophic obstructive cardiomyopathy) Instructions: Cardiomyopathy Dc, ED Chest Pain, Uncertain Cause Prescriptions: New oxycodone-acetaminophen [Percocet] 5-325 mg tablet 1 tab PO Q6H PRN (Reason: pain) 3 Days Qty: 12 0RF ondansetron 4 mg tablet,disintegrating 4 mg PO TID PRN (Reason: nausea and vomiting) Qty: 21 0RF No Action alprazolam 0.5 mg tablet 0.5 mg PO BID Patient Comments: TAKE 1 TABLET BY MOUTH TWICE DAILY zolpidem 10 mg tablet 10 mg PO DAILY Primary Care Provider: Dex Wilkinson Referrals: Jose Francisco Santamaria MD [Med Staff - Active Staff] - Dex Wilkinson MD [Primary Care Provider] - Activity Restrictions/Additional Instructions: Please follow-up with cardiology secondary to your hypertrophic obstructive cardiomyopathy and return to the ER should you have any further concerns Disposition Disposition: Home, Self Care Discharge Date/Time: 12/26/22 01:53
[2022-12-26 01:43] VITALS: PULSE 75; RESP 15; O2SAT 98
== END 2022-12-26 01:53 | disposition home or self-care (01) ==
PROVIDERS: Emergency Provider Emergency Medicine; PCP Family Medicine; Referring Provider Emergency Medicine; Visit Provider Emergency Medicine
DX: R07.9 Chest pain, unspecified (principal); I42.1 Obstructive hypertrophic cardiomyopathy; F17.210 Nicotine dependence, cigarettes, uncomplicated; Z79.899 Other long term (current) drug therapy; Z86.711 Personal history of pulmonary embolism; Z95.810 Presence of automatic (implantable) cardiac defibrillator; R06.00 Dyspnea, unspecified
CPT/HCPCS: 71045; 71275; 80048; 83735; 84484; 85025; 85379; 85610; 85730; 93005; 96361; 96374; 96375; 99284; J7040; Q9967; A4216; J2405

== ENCOUNTER 2023-07-04 19:58 | Emergency (ER) | payer BC, SELFPAY ==
[2023-07-04 19:59] VITALS: BP 129/75; PULSE 79; RESP 16; TEMP 36.3; O2SAT 100; BMI 21.9
--- NOTE | 2023-07-04 20:34 | EKG12_ITS ---
Test Reason : Blood Pressure : / mmHG Vent. Rate : 066 BPM Atrial Rate : 066 BPM P-R Int : 164 ms QRS Dur : 098 ms QT Int : 434 ms P-R-T Axes : 064 -75 084 degrees QTc Int : 454 ms Normal sinus rhythm Biatrial enlargement Incomplete right bundle branch block Left anterior fascicular block Left ventricular hypertrophy ( Sunny product ) Possible Lateral infarct , age undetermined Abnormal ECG Confirmed by DIXIE CINTRON, ES ([id number]), editor index SANDEE GARCIA ([id number]) on 07/11/2023 1:29:24 PM Referred By: Confirmed By:SHWETA COLIN MD
--- NOTE | 2023-07-04 20:37 | EDS_ITS ---
<Statement entered by ROLF Goel - 07/04/23 22:43> I have personally performed a face to face assessment of the patient and have reviewed the GIOVANNA Note. HPI <ROLF Goel - Last Filed: 07/07/23 21:52> History of Present Illness Chief Complaint: Shortness of Breath Narrative Narrative: Patient is a 42-year-old female with history of cardiomyopathy, multiple abdominal surgeries, pneumothorax, anxiety, depression who presents to the emergency department with complaints of more of upper abdominal pain. The complaint registered here was shortness of breath however patient states she is short of breath secondary to the abdominal pain. Patient states this woke up at approximately 5:30 AM. She states it is not chest pain, she states it is upper abdomen pain. She states every time she takes a deep breath, she has significant pain to her abdomen. Patient denies any vomiting however does have nausea. Patient states that the pain is what brought her in. She denies any fever or chills. [facility] <ROLF Goel - Last Filed: 07/07/23 21:52> [facility] Medical History (Updated 07/04/23 @ 22:32 by ROLF Goel) Asthma Breast cancer Collapsed lung History of blood clots Hypertrophic cardiomyopathy ICD (implantable cardioverter-defibrillator) in place Pacemaker Home Medications alprazolam 0.5 mg tablet 0.5 mg PO BID 11/13/21 [History Last Taken Unknown] zolpidem 10 mg tablet 10 mg PO DAILY 11/13/21 [History Last Taken Unknown] ondansetron 4 mg disintegrating tablet 4 mg PO TID PRN nausea and vomiting #21 tabs 12/26/22 [Rx Last Taken Unknown] oxycodone-acetaminophen 5 mg-325 mg tablet (Percocet) 1 tab PO Q6H PRN pain 3 days #12 tabs 12/26/22 [Rx Last Taken Unknown] ondansetron 4 mg disintegrating tablet 4 mg PO Q8H PRN PRN Nausea #10 tabs 07/04/23 [Rx Last Taken Unknown] oxycodone-acetaminophen 5 mg-325 mg tablet (Percocet) 1 tab PO Q8H PRN pain 3 days #10 tabs 07/04/23 [Rx Last Taken Unknown] Allergy/AdvReac Type Severity Reaction Status Date / Time morphine Allergy Mild Hives Verified 07/04/23 21:02 codeine Allergy Hives Verified 07/04/23 19:59 erythromycin base Allergy PT UNSURE Verified 07/04/23 19:59 OF REACTION levofloxacin Allergy PT UNSURE Verified 07/04/23 19:59 OF REACTION tramadol Allergy Hives Verified 07/04/23 19:59 Surgical History History of cholecystectomy Hx of appendectomy Social History (Updated 12/25/22 @ 21:23 by Hayde Quintero) household members: family current occupational status: employed Smoking Status: Light Smoker (<10/day) ROS <ROLF Goel - Last Filed: 07/07/23 21:52> ROS ED ROS Narrative Constitutional: Negative for fever, chills, weight loss, weakness Eyes: Negative for vision loss, vision change, double vision ENT: Negative for any sore throat, ear pain, congestion Cardiovascular: Negative for any chest pain, tightness, palpitations Respiratory: Negative for any sputum production, hemoptysis, dyspnea on exertion, orthopnea. Positive for dyspnea, cough Gastrointestinal: Negative for any vomiting, diarrhea, constipation, blood in stool, blood in vomit. Positive for upper abdominal pain, nausea : Negative for any urinary frequency, dysuria, retention, blood in urine Muscle skeletal: Negative for any neck pain, back pain Neurological: Negative for any headache, syncope, dizziness Skin: Negative for any rashes, itching, abrasions, lacerations Psychiatric: Negative for any depression, anxiety, stress, suicidal ideation, homicidal ideation Hematologic: Negative for any excessive bruising, easy bleeding EXAM <ROLF Goel - Last Filed: 07/07/23 21:52> Physical Exam Narrative Exam Narrative: Vital signs reviewed. Patient does appear to be in mild to moderate distress to her upper abdomen. HEET: Head normocephalic atraumatic, TMs clear bilaterally. Posterior pharynx is clear, moist mucous membranes. Nares clear bilaterally. Neck: Supple with no lymphadenopathy or tenderness. No signs of meningismus. Cardiac: Regular rate and rhythm no murmurs gallops or rubs, equal peripheral pulses bilaterally. Respiratory: Lungs clear to auscultation bilaterally. No chest tenderness. Abdomen: Soft, nondistended. No abdominal bruit or pulsatile masses. No hepatosplenomegaly. Patient has tenderness to the right mid and right upper abdomen. Positive Langley sign. Extremities: No peripheral edema, no signs of gross trauma or deformity. Active full range of motion of all extremities. Neuro: Cranial nerves II through XII intact, no focal neurological deficits. Skin: Clean dry and intact with no rash, purpura, petechiae, vesicles or pustules. Backs/flank: No CVA tenderness, no midline spinal tenderness, no deformity. Psych: Normal mood and affect. No SI, HI or acute psychosis. Const Vital Signs: 07/04/23 19:59 07/04/23 20:22 07/04/23 21:59 Temperature 97.4 F L Temperature Source Temporal Pulse Rate 79 98 Respiratory Rate 16 17 Respiratory Effort Short of Breath Respiratory Depth Normal Respiratory Pattern Normal Blood Pressure 129/75 H 117/71 Blood Pressure Mean 93 86 Pulse Ox 100 97 Oxygen Delivery Method Room Air Positive well nourished and well developed General Appearance ED: well developed <Rubin Briggs MD - Last Filed: 07/07/23 22:51> Physical Exam Const Vital Signs: 07/04/23 19:59 07/04/23 20:22 07/04/23 21:59 Temperature 97.4 F L Temperature Source Temporal Pulse Rate 79 98 Respiratory Rate 16 17 Respiratory Effort Short of Breath Respiratory Depth Normal Respiratory Pattern Normal Blood Pressure 129/75 H 117/71 Blood Pressure Mean 93 86 Pulse Ox 100 97 Oxygen Delivery Method Room Air MDM <ROLF Goel - Last Filed: 07/07/23 21:52> [facility] Lab Data Labs: Laboratory Results - last 24 hr 07/04/23 07/04/23 20:17 20:45 WBC 8.4 RBC 4.33 Hgb 13.6 Hct 42.3 MCV 97.7 MCH 31.4 MCHC 32.2 RDW Std Deviation 47.3 H RDW Coeff of Damon 13.2 Plt Count 195 MPV 12.0 Immature Gran % (Auto) 0.400 Neut % (Auto) 71.6 H Lymph % (Auto) 19.6 [place] % (Auto) 6.1 Eos % (Auto) 1.5 Baso % (Auto) 0.8 Absolute Neuts (auto) 6.0 Absolute Lymphs (auto) 1.65 Nucleated RBC % 0 Sodium 137 Potassium 4.0 Chloride 107 Carbon Dioxide 24.0 Anion Gap 6 BUN 9 Creatinine 0.81 Estim Creat Clear Calc 77.33 Est GFR (MDRD) Af Amer 99 Est GFR (MDRD) Non-Af 82 BUN/Creatinine Ratio 11.1 Glucose 105 Calcium 8.9 Total Bilirubin 0.60 AST 24 ALT 29 Alkaline Phosphatase 97 Total Protein 7.1 Albumin 3.9 Globulin 3.2 Albumin/Globulin Ratio 1.2 Lipase 16 Serum , Qual NEGATIVE Urine Color Yellow Urine Clarity Clear Urine pH 7.0 Ur Specific [place] 1.010 Urine Protein 15 H Urine Glucose (UA) Normal Urine Ketones Negative Urine Occult Blood 150 H Urine Nitrite Negative Urine Bilirubin Negative Urine Urobilinogen Normal Ur Leukocyte Esterase 25 H Urine RBC 10-25 SEEN Urine WBC 0-5 SEEN Ur Squamous Epith Cells 0-5 SEEN Urine Bacteria RARE Urine Mucus 0 SEEN Radiography Diagnostic Testing: Clinical Impression(s) from Imaging Studies Abdomen/Pelvis CT 07/04/23 21:08 IMPRESSION: 1. Hepatomegaly with periportal edema. 2. Free fluid in the abdomen that may represent mild ascites. 3. Multiple varices in the left pelvis which may represent pelvic congestion syndrome. Electronically Signed: Errol Canseco MD at 22:14 EDT , Chest X-Ray 07/04/23 21:20 IMPRESSION: Interstitial opacities which may represent edema. There is a small right-sided pleural effusion. Electronically Signed: Errol Canseco MD at 22:23 EDT , EKG Normal sinus rhythm,: Attestation: I personally reviewed and interpreted this EKG as follows: Interpretation: Sinus Rhythm Comments: Normal sinus rhythm, rate 66 bpm, OR interval 164 ms, QRS duration 98 ms Treatment and Re-Evaluation :: Differential diagnosis includes however is not limited to: Choledocholithiasis, pneumoperitoneum, pneumonia, gastroenteritis, gastritis Patient appears to be in no obvious respiratory distress vital signs are stable. Patient presents to the emergency department with complaints of upper abdominal pain. Secondary to the patient's history, patient will receive a chest x-ray as well as EKG. However this is not chest pain, patient is mostly suffering from right upper abdominal pain. Patient will receive IV fluids, Zofran, morphine. Patient will receive abdominal labs including CBC CMP, lipase. Patient will receive a urinalysis, CT scan of the abdomen pelvis. All radiologic examinations were read, reviewed by the emergency department attending. From these reads, a plan of care will be put in place. Patient CBC was unremarkable, patient's chemistries, lipase was negative, patient is not . Urinalysis showed rare bacteria, 10-25 red blood cells, 25 leukocytes, no nitrates, this is a negative urine. Patient did have some redness at the site of the IV after given morphine. Patient was given Benadryl. Patient's chest x-ray shows a small right-sided pleural effusion, patient CT scan shows hepatomegaly with periportal edema, free fluid in the abdomen that may represent mild ascites. Multiple varices left pelvis represent pelvic congestion syndrome. At this time, I spoke with the patient, patient states she would like to go home. Patient does have some pathology that she needs to follow-up with outpatient. Patient does have multiple doctors that she will follow-up outpatient. Patient be given prescription for pain, as well as nausea medicine. She will get a work note. She is happy the plan of care, I did offer further workup however she states she will go home. All questions answered, patient stable for discharge. <Rubin Briggs MD - Last Filed: 07/07/23 22:51> [facility] Narrative Medical decision making narrative: Dr. Briggs: I have personally performed a face to face assessment of the patient and have reviewed the GIOVANNA Note. I performed a substantive portion of the visit including all aspects of the following. My kim findings include: History is abdominal pain, shortness of breath. Exam is afebrile. Vital signs noted. Abdomen soft with mild tenderness to pa lpation in epigastrium. Medical Decision Making: Check chest x-ray. Chest x-ray interpreted by myself independently shows pleural effusion. I reviewed the radiology report which confirms my independent interpretation. I do not feel antibiotics are indicated. CT report reviewed which shows hepatomegaly with some free fluid which may be ascites. In discussion with the patient, she feels well enough to go home and follow-up as an outpatient. We discussed observation versus admission and she prefers outpatient treatment. Return instructions to the emergency department were reviewed. Disposition is discharged in stable condition. Other additions or changes: [None] History & Record Review Discussion w/independent historian: Patient Lab Data Attestation: I reviewed the patient's lab results. Labs: Laboratory Results - last 24 hr 07/04/23 07/04/23 20:17 20:45 WBC 8.4 RBC 4.33 Hgb 13.6 Hct 42.3 MCV 97.7 MCH 31.4 MCHC 32.2 RDW Std Deviation 47.3 H RDW Coeff of Damon 13.2 Plt Count 195 MPV 12.0 Immature Gran % (Auto) 0.400 Neut % (Auto) 71.6 H Lymph % (Auto) 19.6 [place] % (Auto) 6.1 Eos % (Auto) 1.5 Baso % (Auto) 0.8 Absolute Neuts (auto) 6.0 Absolute Lymphs (auto) 1.65 Nucleated RBC % 0 Sodium 137 Potassium 4.0 Chloride 107 Carbon Dioxide 24.0 Anion Gap 6 BUN 9 Creatinine 0.81 Estim Creat Clear Calc 77.33 Est GFR (MDRD) Af Amer 99 Est GFR (MDRD) Non-Af 82 BUN/Creatinine Ratio 11.1 Glucose 105 Calcium 8.9 Total Bilirubin 0.60 AST 24 ALT 29 Alkaline Phosphatase 97 Total Protein 7.1 Albumin 3.9 Globulin 3.2 Albumin/Globulin Ratio 1.2 Lipase 16 Serum , Qual NEGATIVE Urine Color Yellow Urine Clarity Clear Urine pH 7.0 Ur Specific [place] 1.010 Urine Protein 15 H Urine Glucose (UA) Normal Urine Ketones Negative Urine Occult Blood 150 H Urine Nitrite Negative Urine Bilirubin Negative Urine Urobilinogen Normal Ur Leukocyte Esterase 25 H Urine RBC 10-25 SEEN Urine WBC 0-5 SEEN Ur Squamous Epith Cells 0-5 SEEN Urine Bacteria RARE Urine Mucus 0 SEEN Radiography Chest X-Ray - ED: Read by ED Physician Diagnostic Testing: Clinical Impression(s) from Imaging Studies Abdomen/Pelvis CT 07/04/23 21:08 IMPRESSION: 1. Hepatomegaly with periportal edema. 2. Free fluid in the abdomen that may represent mild ascites. 3. Multiple varices in the left pelvis which may represent pelvic congestion syndrome. Electronically Signed: Errol Canseco MD at 22:14 EDT , Chest X-Ray 07/04/23 21:20 IMPRESSION: Interstitial opacities which may represent edema. There is a small right-sided pleural effusion. Electronically Signed: Errol Canseco MD at 22:23 EDT , Treatment and Re-Evaluation :: Differential diagnosis includes however is not limited to: Choledocholithiasis, pneumoperitoneum, pneumonia, gastroenteritis, gastritis Patient appears to be in no obvious respiratory distress vital signs are stable. Patient presents to the emergency department with complaints of upper abdominal pain. Secondary to the patient's history, patient will receive a chest x-ray as well as EKG. However this is not chest pain, patient is mostly suffering from right upper abdominal pain. Patient will receive IV fluids, Zofran, morphine. Patient will receive abdominal labs including CBC CMP, lipase. Patient will receive a urinalysis, CT scan of the abdomen pelvis. All radiologic examinations were read, reviewed by the emergency department attending. From these reads, a plan of care will be put in place. Patient CBC was unremarkable, patient's chemistries, lipase was negative, patient is not . Urinalysis showed rare bacteria, 10-25 red blood cells, 25 leukocytes, no nitrates, this is a negative urine. Patient did have some redness at the site of the IV after given morphine. Patient was given Benadryl. Patient's chest x-ray shows a small right-sided pleural effusion, patient CT scan shows hepatomegaly with periportal edema, free fluid in the abdomen that may represent mild ascites. Chest x-ray was interpreted by ED physician. Radiology report was reviewed. Multiple varices left pelvis represent pelvic congestion syndrome. At this time, I spoke with the patient, patient states she would like to go home. Patient does have some pathology that she needs to follow-up with outpatient. Patient does have multiple doctors that she will follow-up outpatient. Patient be given prescription for pain, as well as nausea medicine. She will get a work note. She is happy the plan of care, I did offer further workup however she states she will go home. All questions answered, patient stable for discharge. Discharge Plan Triage Chief Complaint: Shortness of Breath ED Midlevel Provider: Suman Lowe ED Provider: Rubin Briggs Dx/Rx/DC Orders Clinical Impression: Ascites, Pleural effusion Instructions: ED Ascites, ED Pleural Effusion Prescriptions: New oxycodone-acetaminophen [Percocet] 5-325 mg tablet 1 tab PO Q8H PRN (Reason: pain) 3 Days Qty: 10 0RF ondansetron 4 mg tablet,disintegrating 4 mg PO Q8H PRN PRN (Reason: Nausea) Qty: 10 0RF No Action alprazolam 0.5 mg tablet 0.5 mg PO BID Patient Comments: TAKE 1 TABLET BY MOUTH TWICE DAILY zolpidem 10 mg tablet 10 mg PO DAILY oxycodone-acetaminophen [Percocet] 5-325 mg tablet 1 tab PO Q6H PRN (Reason: pain) 3 Days Qty: 12 0RF ondansetron 4 mg tablet,disintegrating 4 mg PO TID PRN (Reason: nausea and vomiting) Qty: 21 0RF Stand Alone Forms: ED Work / School Excuse Primary Care Provider: Dex Wilkinson Referrals: Dex Wilkinson MD [Primary Care Provider] - Activity Restrictions/Additional Instructions: You do have some pathology, you do have some ascites, a small right pleural effusion, you need to follow-up outpatient. Return here for worsening symptoms. Disposition Disposition: Home, Self Care Discharge Date/Time: 07/04/23 23:17
[2023-07-04] MEDS: Ondansetron 4 MG/2 ML Vial IV (20:51)
[2023-07-04] MEDS: Morphine 4 MG/ML Syringe IV (20:51)
[2023-07-04] MEDS: 0.9% Normal Saline (1000mL) 1,000 ML 1000 ML IV (20:51)
[2023-07-04 20:59] LABS: Mucous, Urine 0 SEEN /hpf (<or=2+)
--- NOTE | 2023-07-04 21:00 | ED.RN ---
pt had reaction to morphine. localized redness and hives.
[2023-07-04] MEDS: DiphenhydrAMINE 50 MG/ML Syringe 25 MG IV (21:02)
[2023-07-04 21:04] LABS: Absolute Lymphocyte Count 1.65 X10^3/uL (0.83-4.51); Basophil# 0.07 X10^3/uL; Basophil% 0.8 % (0-1); Eosinophil# 0.13 X10^3/uL; Eosinophils% 1.5 % (0-5); Hematocrit 42.3 % (37-47); Hemoglobin 13.6 g/dL (12.0-15.0); Lymphocyte # 1.65 X10^3/ul (0.83-4.51); Lymphocyte % 19.6 % (19-41); Mean Corp Hgb Conc 32.2 g/dL (32-36); Mean Corpuscular Hgb 31.4 pg (27.0-32.0); Mean Corpuscular Volume 97.7 fL (81-99); Monocyte# 0.51 X10^3/uL; Monocyte% 6.1 % (0-10); NRBC Flagged by Analyzer 0 % (0-5); Neutrophil # 6.01 X10^3/uL (2.7-7.7); Neutrophil % 71.6 % (47-70); Platelet Count 195 K/mm3 (150-450); RBC Distribution Width CV 13.2 % (11.6-14.6); RBC Distribution Width SD 47.3 fl (35.1-43.9); Red Blood Count 4.33 M/mm3 (4.2-5.4); White Blood Count 8.4 K/mm3 (4.4-11.0)
[2023-07-04 21:05] LABS: Color, Urine Yellow (Yellow); Glucose, Dipstick Normal (Normal); Ketone-Dipstick Negative (Negative); Leukocyte Esterase-Dipstick 25 /ul (Negative); Nitrite-Dipstick Negative (Negative); Occult Blood-Urine 150 /ul (Negative); Protein-Dipstick 15 mg/dl (Negative); Urine Bilirubin Dipstick Negative (Negative); Urine Clarity Clear (Clear); Urine Urobilinogen Normal (Normal)
[2023-07-04 21:08] LABS: Internal QC Validated? YES +Cl - CLEAR BKGD; Pregnancy, Serum, hCG Quali. NEGATIVE Negative
--- NOTE | 2023-07-04 21:08 | CT_ITS ---
EXAM: CT ABDOMEN AND PELVIS WITH INTRAVENOUS CONTRAST CLINICAL INDICATION: abdominal pain TECHNIQUE: Helically acquired images were obtained of the abdomen and pelvis with intravenous contrast. This CT exam was performed using one or more of the following dose reduction techniques: automated exposure control, adjustment of the mA and/or kV according to patient size, and/or use of iterative reconstruction technique. CONTRAST: IV 75mL Isovue-300 COMPARISON: No relevant prior studies available. FINDINGS: LOWER THORAX: There is a small right-sided pleural effusion with minimal right basilar atelectasis. No cardiomegaly. ABDOMEN: LIVER: There is mild enhancement of the liver which may represent a liver which can be seen just inferior there is periportal edema present. The liver is enlarged in size. GALLBLADDER AND BILE DUCTS: There are surgical clips from a cholecystectomy. No intra- or extrahepatic biliary ductal dilation. PANCREAS: Unremarkable. No focal cystic or solid mass. SPLEEN: Unremarkable. Normal size without focal cystic or solid mass. ADRENALS: Unremarkable. No nodules. KIDNEYS AND URETERS: Unremarkable. Normal renal size and position. No hydronephrosis. STOMACH AND BOWEL: Unremarkable. No stomach or bowel distention. No focal inflammatory change. PELVIS: APPENDIX: No evidence of acute appendicitis. BLADDER: Unremarkable. REPRODUCTIVE: Unremarkable as visualized. No mass. ABDOMEN and PELVIS: INTRAPERITONEAL SPACE: Unremarkable. No ascites or other fluid collection. No free air. BONES/JOINTS: Unremarkable. No suspicious lytic or blastic abnormality. SOFT TISSUES: See above. VASCULATURE: There are varices in the left pelvis which may represent pelvic congestion syndrome. Abdominal aorta is non-dilated. LYMPH NODES: Unremarkable. No enlarged lymph nodes. CT/Abdomen/Pelvis W IV Cont ONLY IMPRESSION: 1. Hepatomegaly with periportal edema. 2. Free fluid in the abdomen that may represent mild ascites. 3. Multiple varices in the left pelvis which may represent pelvic congestion syndrome. Electronically Signed: Errol Canseco MD at 22:14 EDT ,
[2023-07-04 21:16] LABS: Bacteria RARE /hpf (None Seen); Red Blood Cells-Urine 10-25 SEEN /hpf (0-5); Squamous Epithelial Cells - UA 0-5 SEEN /hpf (5-10); White Blood Cells 0-5 SEEN /hpf (0-5)
[2023-07-04 21:19] LABS: ALB/GLOB Ratio 1.2 RATIO (0.9-2.4); AST(SGOT) 24 U/L (15-37); Alanine Aminotransfer ALT/SGPT 29 U/L (13-56); Albumin, Serum 3.9 g/dL (3.2-5.0); Alkaline Phosphatase 97 U/L (45-117); Anion Gap 6 (5-15); BUN 9 mg/dL (7-18); BUN/Creat Ratio 11.1 RATIO (10-20); Calcium,Total 8.9 mg/dL (8.5-10.1); Chloride 107 mmol/L (98-107); Creatinine, Serum 0.81 mg/dL (0.55-1.02); EST Glomerular Filtration Rate 82 mL/min (>60); Est Glom Filt Rate - Afr Amer 99 mL/min (>60); Estimated Creatinine Clearance 77.33 ml/min; Globulin 3.2 g/dL (2.2-4.2); Glucose 105 mg/dL (74-106); Lipase 16 U/L (13-75); Protein, Total 7.1 g/dL (6.4-8.2); Sodium Level 137 mmol/L (136-145)
--- NOTE | 2023-07-04 21:20 | RAD_ITS ---
EXAM: XR CHEST, 2 VIEWS CLINICAL INDICATION: cough TECHNIQUE: Frontal and lateral views of the chest. COMPARISON: 12/25/2022 FINDINGS: LUNGS AND PLEURAL SPACES: There are interstitial opacities which may represent edema. There is a small right-sided pleural effusion. No pneumothorax. HEART: Unremarkable. Cardiac silhouette not enlarged. MEDIASTINUM: Central airways and mediastinal contour are unremarkable. BONES/JOINTS: Unremarkable. No acute fracture. SOFT TISSUES: Unremarkable. TUBES, LINES AND DEVICES: Right-sided pacemaker in stable position. RAD/Chest PA and Lateral IMPRESSION: Interstitial opacities which may represent edema. There is a small right-sided pleural effusion. Electronically Signed: Errol Canseco MD at 22:23 EDT ,
[2023-07-04 21:59] VITALS: BP 117/71; PULSE 98; RESP 17; O2SAT 97
[2023-07-04 23:00] VITALS: BP 122/89; PULSE 78; RESP 16; TEMP 36.6; O2SAT 99
== END 2023-07-04 23:17 | disposition home or self-care (01) ==
PROVIDERS: Nurse Practitioner; Emergency Provider Emergency Medicine; PCP Family Medicine; Visit Provider Emergency Medicine
DX: R18.8 Other ascites (principal); R10.11 Right upper quadrant pain; J90 Pleural effusion, not elsewhere classified; R11.0 Nausea; J45.909 Unspecified asthma, uncomplicated; F32.A Depression, unspecified; F41.9 Anxiety disorder, unspecified; R10.816 Epigastric abdominal tenderness; F17.200 Nicotine dependence, unspecified, uncomplicated; Z79.899 Other long term (current) drug therapy; Z95.810 Presence of automatic (implantable) cardiac defibrillator
CPT/HCPCS: 71046; 74177; 80053; 81001; 83690; 84703; 85025; 93005; 96361; 96374; 96375; 99284; J7030; Q9967; A4216; J2405

== ENCOUNTER → 2023-08-16 | Outpatient (CLI) | payer BC, SELFPAY ==
[2023-08-16 15:57] LABS: International Normalized Ratio 1.1; Prothrombin Time (Protime)PT. 13.7 SECONDS (11.7-14.9)
[2023-08-16 15:58] LABS: Partial Thromboplast Time 33.7 Seconds (24.1-36.2)
[2023-08-16 16:30] LABS: ALB/GLOB Ratio 0.8 RATIO (0.9-2.4); AST(SGOT) 17 U/L (15-37); Alanine Aminotransfer ALT/SGPT 23 U/L (13-56); Albumin, Serum 3.4 g/dL (3.2-5.0); Alkaline Phosphatase 139 U/L (45-117); Anion Gap 8 (5-15); BUN 6 mg/dL (7-18); BUN/Creat Ratio 6.9 RATIO (10-20); Calcium,Total 9.3 mg/dL (8.5-10.1); Chloride 107 mmol/L (98-107); Creatinine, Serum 0.86 mg/dL (0.55-1.02); EST Glomerular Filtration Rate 76 mL/min (>60); Est Glom Filt Rate - Afr Amer 92 mL/min (>60); Glucose 119 mg/dL (74-106); Potassium 4.1 mmol/L (3.5-5.1); Protein, Total 7.4 g/dL (6.4-8.2); Sodium Level 138 mmol/L (136-145)
[2023-08-18 15:09] LABS: Endomysial Antibody IgA Negative (Negative); Immunoglobulin A 108 mg/dL (87-352); t-Transglutaminase IgA <2 U/mL (0-3)
== END | disposition home or self-care (01) ==
LOC: MTLAB 12:41
PROVIDERS: PCP Family Medicine; Referring Provider Internal Medicine Gastroenterology; Visit Provider Internal Medicine Gastroenterology
DX: R10.9 Unspecified abdominal pain (principal); R19.7 Diarrhea, unspecified
CPT/HCPCS: 36415; 80053; 82784; 83516; 85610; 85730; 86140; 86255

== ENCOUNTER → 2023-09-13 | Outpatient (CLI) | payer BC, SELFPAY ==
--- NOTE | 2023-09-13 12:42 | ECHODONC_ITS ---
Reason For Study: HYPERTROPHIC CMP Procedure This was a 2D Doppler, Color Flow transthoracic echocardiogram. Myocardial strain analysis was performed in this exam to aid in the assessment of cardiac function. The study was technically difficult. Exam performed in department. Left Ventricle Normal LV size. Mild eccentric left ventricular hypertrophy. The left ventricular ejection fraction is 50 %. Stage 1 diastolic dysfunction. No regional wall motion abnormalities noted. Right Ventricle Normal RV size. ICD or pacer leads identified within the right ventricle. Normal systolic function. Tricuspid Valve Normal tricuspid valve. Mild to moderate (1-2+) tricuspid valve insufficiency. Pulmonary artery systolic pressure is 58 mmHg. Aortic Valve Trisinus/trileaflet aortic valve. Pulmonic Valve Normal pulmonic valve. Great Vessels Normal aortic root. The pulmonary artery is normal size. Inferior vena cava collapse with respiration. Pericardium/Pleural No pericardial effusion. MMode/2D Measurements & Calculations LVIDd: 4.9 cm IVSd: 1.2 cm Ao root diam: 2.7 cm LVIDs: 3.6 cm LVPWd: 0.78 cm RVDd: 2.7 cm FS: 27.2 % LAV(MOD-bp): 96.9 ml LVAd ap4: 24.4 cm2 LVAd ap2: 20.8 cm2 LAV(MOD-bp) Indexed: 60.1 ml/m2 LVLd ap4: 6.6 cm LVLd ap2: 6.6 cm LAV(MOD-sp2): 95.5 ml EDV(MOD-sp4): 74.3 ml EDV(MOD-sp2): 55.2 ml LAV(MOD-sp4): 94.5 ml EDV(sp4-el): 77.0 ml EDV(sp2-el): 55.8 ml LVAs ap4: 15.7 cm2 LVAs ap2: 12.7 cm2 LVLs ap4: 5.9 cm LVLs ap2: 5.5 cm ESV(MOD-sp4): 36.2 ml ESV(MOD-sp2): 26.5 ml ESV(sp4-el): 35.5 ml ESV(sp2-el): 24.8 ml EF(MOD-sp4): 51.3 % EF(MOD-sp2): 52.1 % EF(sp4-el): 53.9 % SV(MOD-sp4): 38.1 ml SV(MOD-sp2): 28.7 ml SV(sp4-el): 41.6 ml LA A4 area: 27.0 cm2 LA dimension(2D): 4.6 cm RA A4 area: 12.9 cm2 TAPSE: 2.4 cm Time Measurements MV dec time: 0.23 sec Doppler Measurements & Calculations MV E max reza: 35.8 cm/sec Lat Peak E' Reza: 4.3 cm/sec Med Peak E' Reza: 4.4 cm/sec MV A max reza: 49.4 cm/sec E/E' lat: 8.4 E/E' med: 8.2 MV E/A: 0.73 MV V2 max: 54.8 cm/sec MV P1/2t max reza: 52.9 cm/sec Ao V2 max: 106.6 cm/sec MV max P.2 mmHg MV P1/2t: 65.3 msec Ao max P.5 mmHg MV V2 mean: 31.4 cm/sec MV dec slope: 237.4 cm/sec2 Ao V2 mean: 73.2 cm/sec MV mean P.43 mmHg MVA(P1/2t): 3.4 cm2 Ao mean P.4 mmHg MV V2 VTI: 14.7 cm Ao V2 VTI: 19.5 cm AV (velocity ratio): 0.84 LV V1 max: 95.4 cm/sec PA V2 max: 95.4 cm/sec TR max reza: 364.0 cm/sec LV V1 max P.6 mmHg PA V2 mean: 71.1 cm/sec TR max P.0 mmHg LV V1 mean P.7 mmHg LV V1 mean: 60.4 cm/sec LV V1 VTI: 16.4 cm ECHO/ONC Echo Complete Interpretation Summary Normal LV size. The left ventricular ejection fraction is 50 %. Stage 1 diastolic dysfunction. Mild eccentric left ventricular hypertrophy. Pulmonary artery systolic pressure is 58 mmHg. The global longitudinal strain is mildly abnormal. The global longitudinal stra in = -16.1 % (normal). Ordering Physician: Curt Bishop Referring Physician: Dex Wilkinson Performed By: Veronika Lujan RDCS, RVT
== END | disposition home or self-care (01) ==
PROVIDERS: PCP Family Medicine; Referring Provider Internal Medicine Cardiovascular Disease; Visit Provider Internal Medicine Cardiovascular Disease
DX: I42.2 Other hypertrophic cardiomyopathy (principal); Z95.810 Presence of automatic (implantable) cardiac defibrillator
CPT/HCPCS: 93306; 93356

== ENCOUNTER 2023-11-01 22:14 | Emergency (ER) | payer BC, SELFPAY ==
[2023-11-01 22:16] VITALS: BP 136/74; PULSE 85; RESP 18; TEMP 36.6; O2SAT 100; BMI 20.7
[2023-11-01 22:33] LABS: Mucous, Urine 0 SEEN /hpf (<or=2+); White Blood Cells 0 SEEN /hpf (0-5)
[2023-11-01 22:35] LABS: Absolute Lymphocyte Count 1.45 X10^3/uL (0.83-4.51); Absolute Neutrophil Count 11.1 X10^3/uL (2.0-7.7); Basophil# 0.07 X10^3/uL; Basophil% 0.5 % (0-1); Color, Urine Yellow (Yellow); Eosinophil# 0.17 X10^3/uL; Eosinophils% 1.3 % (0-5); Glucose, Dipstick Normal (Normal); Hematocrit 41.2 % (37-47); Hemoglobin 13.6 g/dL (12.0-15.0); Ketone-Dipstick Negative (Negative); Leukocyte Esterase-Dipstick Negative /ul (Negative); Lymphocyte # 1.45 X10^3/ul (0.83-4.51); Lymphocyte % 10.8 % (19-41); Mean Corpuscular Hgb 31.8 pg (27.0-32.0); Mean Corpuscular Volume 96.3 fL (81-99); Monocyte# 0.67 X10^3/uL; NRBC Flagged by Analyzer 0 % (0-5); Neutrophil # 11.06 X10^3/uL (2.7-7.7); Nitrite-Dipstick Negative (Negative); Occult Blood-Urine 150 /ul (Negative); POSITIVE MORPHOLOGY YES; Platelet Count 241 K/mm3 (150-450); Protein-Dipstick Negative (Negative); RBC Distribution Width CV 12.9 % (11.6-14.6); RBC Distribution Width SD 45.8 fl (35.1-43.9); Red Blood Count 4.28 M/mm3 (4.2-5.4); Urine Bilirubin Dipstick Negative (Negative); Urine Clarity Clear (Clear); Urine Urobilinogen Normal (Normal); White Blood Count 13.5 K/mm3 (4.4-11.0)
[2023-11-01 22:37] LABS: Differential Indicated SCAN CRITERIA MET
[2023-11-01 22:41] LABS: Squamous Epithelial Cells - UA 0-5 SEEN /hpf (5-10)
[2023-11-01 22:43] LABS: Bacteria 2+ /hpf (None Seen); Red Blood Cells-Urine 0-5 SEEN /hpf (0-5); Yeast-Urine 2+ /hpf (None Seen)
[2023-11-01 22:46] LABS: Internal QC Validated? YES +Cl - CLEAR BKGD; Pregnancy, Serum, hCG Quali. NEGATIVE Negative; Record Kit Lot#, Serum Preg. 772476
[2023-11-01 22:52] LABS: ALB/GLOB Ratio 1.2 RATIO (0.9-2.4); AST(SGOT) 19 U/L (15-37); Alanine Aminotransfer ALT/SGPT 24 U/L (13-56); Alkaline Phosphatase 90 U/L (45-117); Anion Gap 6 (5-15); BUN 8 mg/dL (7-18); BUN/Creat Ratio 9.7 RATIO (10-20); Calcium,Total 9.5 mg/dL (8.5-10.1); Chloride 107 mmol/L (98-107); Creatinine, Serum 0.83 mg/dL (0.55-1.02); EST Glomerular Filtration Rate 80 mL/min (>60); Est Glom Filt Rate - Afr Amer 97 mL/min (>60); Estimated Creatinine Clearance 74.69 ml/min; Globulin 3.3 g/dL (2.2-4.2); Glucose 96 mg/dL (74-106); Potassium 3.2 mmol/L (3.5-5.1); Protein, Total 7.3 g/dL (6.4-8.2); Sodium Level 139 mmol/L (136-145)
[2023-11-01 23:02] LABS: Differential Comment SCANNED
[2023-11-01 23:17] VITALS: BP 128/68; PULSE 74; RESP 18; O2SAT 99
--- NOTE | 2023-11-01 23:21 | CT_ITS ---
INDICATION: abd pain S/P colonoscopy EXAMINATION: CT ABDOMEN AND PELVIS WITH CONTRAST - CT Abdomen And Pelvis W/ Contrast Injection TECHNIQUE: Helically acquired images were obtained of the abdomen and pelvis following IV contrast. A radiation dose optimization technique was used for this scan. IV Contrast dosage and agent: 100 cc Isovue-370 Oral contrast: None. COMPARISON: 07/04/2023 FINDINGS: LOWER CHEST: Lung bases are clear. No cardiomegaly or pericardial effusion. LIVER: Mild heterogenous enhancement with periportal edema. No concerning focal mass. GALLBLADDER AND BILIARY TREE: Cholecystectomy. No intra- or extrahepatic biliary ductal dilation. PANCREAS: No focal cystic or solid mass. SPLEEN: Normal size without focal cystic or solid mass. ADRENAL GLANDS: No nodules. KIDNEYS AND URETERS: Normal renal size and position. No hydronephrosis. PERITONEUM: Scattered ascites, decreased from prior study. No free air. BOWEL: Prior appendectomy. No stomach or bowel distension. Mild colonic wall thickening from the mid transverse colon through the sigmoid colon. Mild adjacent inflammatory stranding most visible in the transverse colon. LYMPH NODES: No enlarged mesenteric or retroperitoneal lymph nodes. VESSELS: Aorta is non-dilated. URINARY BLADDER: Unremarkable. REPRODUCTIVE ORGANS: No pelvic masses. Prominent pelvic vasculature indicating possible pelvic congestion syndrome. ABDOMINAL WALL: No discrete abdominal or pelvic wall hernia. BONES: Unremarkable. CT/Abdomen/Pelvis W IV Cont ONLY IMPRESSION: Findings consistent with colitis of the transverse through the sigmoid colon. Scattered ascites. Possible pelvic congestion syndrome. Electronically Signed: Tavo Jules MD at 0:39 EDT ,
[2023-11-01] MEDS: 0.9% Normal Saline (1000mL) 1,000 ML 999 ML IV (23:32)
[2023-11-01] MEDS: HYDROmorphone 1 MG/ML Syringe IV (23:33)
[2023-11-01] MEDS: Ondansetron 4 MG/2 ML Vial IV (23:33)
[2023-11-01 23:52] LABS: Lipase 32 U/L (13-75)
[2023-11-02] VITALS: BP 113/52; PULSE 69; RESP 18; O2SAT 97
[2023-11-02 01:00] VITALS: BP 113/74; PULSE 76; RESP 18; O2SAT 97
--- NOTE | 2023-11-02 01:05 | EX.ED.DYSGE1 ---
HPI History of Present Illness Chief Complaint: Abd Pain Informant: patient Narrative Narrative: Patient is a 43-year-old female with past medical history of hypertrophic obstructive cardiomyopathy. She states she had a colonoscopy yesterday and reportedly it showed mild inflammatory changes and a biopsy was obtained. She states she was doing well until around noon today when she developed abdominal discomfort greatest in the left lower quadrant. She states there is been nausea associated with the symptoms but denies any vomiting. She states she has been having bowel movements and they are not black or bloody. She reports there is no dysuria or vaginal discharge or concern for . However because of the persistent and increasing pain and status post procedure she is contacted her temperature logging operator and he advised her to come to the hospital for further evaluation [facility] Medical History Pulmonary embolism Endometrial cancer Cervical cancer DVT (deep venous thrombosis) senior living current use of 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 Ovarian cancer GERD (gastroesophageal reflux disease) Insomnia Anxiety Collapsed lung History of blood clots Asthma Breast cancer Pacemaker ICD (implantable cardioverter-defibrillator) in place Hypertrophic cardiomyopathy Home Medications ?Medication ?Instructions ?Recorded ?Last Taken ?Type alprazolam 0.5 mg tablet 0.5 mg PO BID 11/13/21 Unknown History zolpidem 10 mg tablet 10 mg PO DAILY 11/13/21 Unknown History albuterol sulfate 90 mcg/actuation 1 inh inhalation PRN 07/26/23 Unknown History aerosol inhaler trazodone 50 mg tablet 50 mg PO QHS 07/26/23 Unknown History methscopolamine 5 mg tablet 5 mg PO BID 11/01/23 Unknown History amoxicillin 875 mg-potassium 1 tab PO BID 7 days #14 tabs 11/02/23 Unknown Rx clavulanate 125 mg tablet oxycodone-acetaminophen 5 mg-325 1 tab PO Q6H PRN pain 3 days #12 11/02/23 Unknown Rx mg tablet (Percocet) tabs Allergy/AdvReac Type Severity Reaction Status Date / Time morphine Allergy Mild Hives Verified 11/01/23 22:15 codeine Allergy Hives Verified 11/01/23 22:15 erythromycin base Allergy PT UNSURE Verified 11/01/23 22:15 OF REACTION Fish Containing Products Allergy Other Verified 11/01/23 22:15 levofloxacin Allergy PT UNSURE Verified 11/01/23 22:15 OF REACTION lorazepam (From Ativan) Allergy Other Verified 11/01/23 22:15 shellfish derived Allergy Other Verified 11/01/23 22:15 tramadol Allergy Hives Verified 11/01/23 22:15 trimethobenzamide (From Allergy Other Verified 11/01/23 22:15 Tigan) acetaminophen (From Vicodin) AdvReac Other Verified 11/01/23 22:15 gabapentin (From Neurontin) AdvReac Other Verified 11/01/23 22:15 hydrocodone (From Vicodin) AdvReac Other Verified 11/01/23 22:15 metoclopramide (From Reglan) AdvReac Other Verified 11/01/23 22:15 Family History (Updated 07/26/23 @ 10:01 by Rosemary Odom RN) Father Heart disease Idiopathic hypertrophic subaortic stenosis, hypertrophic obstructive cardiomyopathy, congestive heart failure Mother Breast cancer DVT (deep venous thrombosis) Sister Hypertrophic obstructive cardiomyopathy heart transplant at age 34 Cancer Brain, breast, and colon Grandfather Heart disease at age 45 Grandmother CVA (cerebral vascular accident) age 43 Surgical History History of oophorectomy History of cervical polypectomy History of colonoscopy History of tubal ligation History of mastectomy History of cholecystectomy Hx of appendectomy Social History (Updated 08/16/23 @ 11:27 by Rosemary Odom RN) household members: family current occupational status: employed Smoking Status: Current every day smoker tobacco type: cigarettes how long ago did patient quit smokin months ago alcohol intake: former substance use type: does not use caffeine: Yes ROS ROS ED Constitutional Constitutional ED: Denies chills or fever(s) Eyes Eyes: Denies blurry vision or change in vision ENT ENT ED: Denies rhinorrhea or sore throat Cardiovascular Cardiovascular: Denies chest pain Respiratory/Chest Respiratory/Chest: Denies cough or dyspnea Gastrointestinal Gastrointestinal: Reports abdominal pain and nausea; Denies diarrhea or vomiting Genitourinary Genitourinary ED: Denies dysuria or hematuria Musculoskeletal Musculoskeletal: Denies myalgias Integumentary Denies rash Neurologic Neurologic: Denies headache(s) Hematologic/Lymphatic Hematologic/Lymphatic: Denies easy bleeding or easy bruising EXAM Physical Exam Const Vital Signs: 11/01/23 22:16 11/01/23 23:17 11/02/23 00:00 Temperature 97.9 F Temperature Source Temporal Pulse Rate 85 74 69 Respiratory Rate 18 18 18 Blood Pressure 136/74 H 128/68 H 113/52 L Blood Pressure Mean 94 88 72 Pulse Ox 100 99 97 Oxygen Delivery Method Room Air Room Air Room Air 11/02/23 01:00 11/02/23 01:13 Temperature 98.4 F Temperature Source Pulse Rate 76 76 Respiratory Rate 18 16 Blood Pressure 113/74 113/74 Blood Pressure Mean 87 87 Pulse Ox 97 97 Oxygen Delivery Method Room Air Positive well nourished and well developed General Appearance ED: well developed; Negative for pallor HEENT Reports moist mucous membranes HEENT Narrative: No tongue or lip swelling no oral lesions no airway edema or compromise No secondary findings in the posterior pharynx to suggest infection Eyes PERRL and EOMs intact bilaterally General Eye ED: Negative for scleral icterus Neck supple Neck Narrative: No nuchal rigidity or meningeal signs No crepitance noted Resp normal respiratory effort and clear to auscultation bilaterally Cardio regular rate and regular rhythm Rate: other Other Details: Heart is regular rate and rhythm Radial and carotid pulses are equal and symmetric GI non-distended and no masses GI Narrative: Abdomen is soft and nondistended with pain with palpation along the left abdomen greatest in the left lower quadrant. No voluntary guarding or rigidity. No peritoneal signs. No pulsatile mass or fluid wave. Auscultation: normoactive bowel sounds Palpation: soft Back/Spine no CVA tenderness Extremity normal to inspection Neuro oriented x3, CN's II-XII intact bilaterally and no sensory deficits noted Sensorium / Orientation: alert Motor Exam: strength 5/5 throughout Psych mental status grossly normal Skin no rashes or lesions noted General Skin Exam: Negative for jaundice or pallor MDM MDM MDM Narrative Medical decision making narrative: Patient presented to the ER with stable vitals but with recent colonoscopy and biopsy there is concern for acute perforation there is also concern for intestinal abscess versus small bowel obstruction. Secondary to this basic labs and a CT scan were obtained. Labs showed leukocytosis at 13.5 but otherwise no clinically significant finding. CT scan showed changes consistent with colitis from the transverse to sigmoid colon which does correlate with the location of patient's pain. However there is no signs of obstruction or perforation. After IV fluids and pain medication in the ER her blood pressure improved and vitals remained stable. On reevaluation her abdomen remains soft and nonsurgical. Therefore at this time as CT scan is showing changes consistent with colitis and she does have a low white count I will place her on antibiotics to cover for infectious process. However without obstruction or perforation or abscess formation I do not feel there is need for admission and patient is otherwise safe for discharge History & Record Review Discussion w/independent historian: Patient Lab Data Attestation: I reviewed the patient's lab results. Labs: Laboratory Results - last 24 hr 11/01/23 11/01/23 22:25 23:32 WBC 13.5 H RBC 4.28 Hgb 13.6 Hct 41.2 MCV 96.3 MCH 31.8 MCHC 33.0 RDW Std Deviation 45.8 H RDW Coeff of Damon 12.9 Plt Count 241 MPV 11.0 Immature Gran % (Auto) 0.400 Neut % (Auto) 82.0 H Lymph % (Auto) 10.8 L [place] % (Auto) 5.0 Eos % (Auto) 1.3 Baso % (Auto) 0.5 Absolute Neuts (auto) 11.1 H Absolute Lymphs (auto) 1.45 Nucleated RBC % 0 Differential Comment SCANNED Sodium 139 Potassium 3.2 L Chloride 107 Carbon Dioxide 26.0 Anion Gap 6 BUN 8 Creatinine 0.83 Estim Creat Clear Calc 74.69 Est GFR (MDRD) Af Amer 97 Est GFR (MDRD) Non-Af 80 BUN/Creatinine Ratio 9.7 L Glucose 96 Lactic Acid 1.0 Calcium 9.5 Total Bilirubin 0.30 AST 19 ALT 24 Alkaline Phosphatase 90 Total Protein 7.3 Albumin 4.0 Globulin 3.3 Albumin/Globulin Ratio 1.2 Lipase 32 Serum , Qual NEGATIVE Urine Color Yellow Urine Clarity Clear Urine pH 7.0 Ur Specific Joes 1.010 Urine Protein Negative Urine Glucose (UA) Normal Urine Ketones Negative Urine Occult Blood 150 H Urine Nitrite Negative Urine Bilirubin Negative Urine Urobilinogen Normal Ur Leukocyte Esterase Negative Urine RBC 0-5 SEEN Urine WBC 0 SEEN Ur Squamous Epith Cells 0-5 SEEN Urine Bacteria 2+ Urine Mucus 0 SEEN Urine Yeast 2+ Radiography Diagnostic Testing: Clinical Impression(s) from Imaging Studies Abdomen/Pelvis CT 11/01/23 23:21 IMPRESSION: Findings consistent with colitis of the transverse through the sigmoid colon. Scattered ascites. Possible pelvic congestion syndrome. Electronically Signed: Tavo Jules MD at 0:39 EDT Reading Location ID and State: Replaced by [facility] / [place] Tel , Service support , Discharge Plan Triage Chief Complaint: Abd Pain Other Complaint: Nausea/Vomiting/Diarrhea ED Provider: Babar Wood Dx/Rx/DC Orders Clinical Impression: Acute colitis, Hypertrophic cardiomyopathy Instructions: ED Understanding Colitis Prescriptions: New oxycodone-acetaminophen [Percocet] 5-325 mg tablet 1 tab PO Q6H PRN (Reason: pain) 3 Days Qty: 12 0RF amoxicillin-pot clavulanate 875-125 mg tablet 1 tab PO BID 7 Days Qty: 14 0RF No Action trazodone 50 mg tablet 50 mg PO QHS albuterol sulfate 90 mcg/actuation HFA aerosol inhaler 1 inh inhalation PRN alprazolam 0.5 mg tablet 0.5 mg PO BID Patient Comments: TAKE 1 TABLET BY MOUTH TWICE DAILY zolpidem 10 mg tablet 10 mg PO DAILY methscopolamine 5 mg tablet 5 mg PO BID Primary Care Provider: Dex Wilkinson Referrals: Dex Wilkinson MD [Primary Care Provider] - Print Language: Emirati Disposition Disposition: Home, Self Care Discharge Date/Time: 11/02/23 01:14
[2023-11-02] MEDS: Amox/Clavulanate 875 MG Tablet PO (01:11)
[2023-11-02] MEDS: oxyCODONE 5 MG Tablet 10 MG PO (01:11)
[2023-11-02 01:13] VITALS: BP 113/74; PULSE 76; RESP 16; TEMP 36.9; O2SAT 97
== END 2023-11-02 01:14 | disposition home or self-care (01) ==
PROVIDERS: Emergency Provider Emergency Medicine; PCP Family Medicine; Visit Provider Emergency Medicine
DX: K52.9 Noninfective gastroenteritis and colitis, unspecified (principal); I42.2 Other hypertrophic cardiomyopathy; R10.32 Left lower quadrant pain; Z79.899 Other long term (current) drug therapy; Z95.810 Presence of automatic (implantable) cardiac defibrillator; F17.210 Nicotine dependence, cigarettes, uncomplicated
CPT/HCPCS: 74177; 80053; 81001; 83605; 83690; 84703; 85025; 96361; 96374; 96375; 99284; J7030; Q9967; A4216; J2405

== ENCOUNTER 2024-05-11 23:41 | Emergency (ER) | payer BC, SELFPAY ==
[2024-05-11 23:42] VITALS: BP 169/105; PULSE 105; RESP 20; TEMP 36.8; O2SAT 100; BMI 21.5
--- NOTE | 2024-05-12 00:04 | EDS_ITS ---
HPI History of Present Illness Chief Complaint: Wound Check Informant: patient Narrative Narrative: Patient presents around midnight for tender swollen area left lateral leg, it started this morning and has grown over the course of half of the day. She states he is feeling poorly but not having any fevers. She states she thinks the malaise and the nausea is because she is just in so much pain whenever she moves her leg or touches the area. She has a small chronic wound there that itches a lot, [place] in this area and a lot of times it itches and she scratches it without even thinking about it and the tender swollen area is right behind it/next to it. She has had no spontaneous discharge or bleeding. [facility] Medical History Pulmonary embolism Endometrial cancer Cervical cancer DVT (deep venous thrombosis) long-term current use of 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 Ovarian cancer GERD (gastroesophageal reflux disease) Insomnia Anxiety Collapsed lung History of blood clots Asthma Breast cancer Pacemaker ICD (implantable cardioverter-defibrillator) in place Hypertrophic cardiomyopathy Home Medications ?Medication ?Instructions ?Recorded ?Last Taken ?Type alprazolam 0.5 mg tablet 0.5 mg PO BID 11/13/21 Unkno wn History zolpidem 10 mg tablet 10 mg PO DAILY 11/13/21 Unkn own History albuterol sulfate 90 mcg/actuation 1 inh inhalation CA N 07/26/23 Unknown History aerosol inhaler trazodone 50 mg tablet 50 mg PO QHS 07/26/23 Unknow n History methscopolamine 5 mg tablet 5 mg PO BID 11/01/23 Unkno wn History oxycodone-acetaminophen 5 mg-325 1 tab PO Q6H PRN pain 3 days #12 11/02/23 Unknown Rx mg tablet (Percocet) tabs sulfamethoxazole 800 1 tab PO BID #20 TABLETS 04/07 Unknown Rx mg-trimethoprim 160 mg tablet Allergy/AdvReac Type Severity Reaction Status Date / Time morphine Allergy Mild Hives Verified 05/11/24 23:43 codeine Allergy Hives Verified 05/11/24 23:43 erythromycin base Allergy PT UNSURE Verified 05/11/24 23:43 OF REACTION Fish Containing Products Allergy Other Verified 05/11/24 23:43 levofloxacin Allergy PT UNSURE Verified 05/11/24 23:43 OF REACTION lorazepam (From Ativan) Allergy Other Verified 05/11/24 23:43 shellfish derived Allergy Other Verified 05/11/24 23:43 tramadol Allergy Hives Verified 05/11/24 23:43 trimethobenzamide (From Allergy Other Verified 05/11/24 23:43 Tigan) gabapentin (From Neurontin) AdvReac Severe Anaphylaxis Verified 05/11/24 23:43 acetaminophen (From Vicodin) AdvReac Other Verified 05/11/24 23:43 hydrocodone (From Vicodin) AdvReac Other Verified 05/11/24 23:43 metoclopramide (From Reglan) AdvReac Other Verified 05/11/24 23:43 Family History (Updated 07/26/23 @ 10:01 by Rosemary Odom RN) Father Heart disease Idiopathic hypertrophic subaortic stenosis, hypertrophic obstructive cardiomyopathy, congestive heart failure Mother Breast cancer DVT (deep venous thrombosis) Sister Hypertrophic obstructive cardiomyopathy heart transplant at age 34 Cancer Brain, breast, and colon Grandfather Heart disease at age 45 Grandmother CVA (cerebral vascular accident) age 43 Surgical History History of oophorectomy History of cervical polypectomy History of colonoscopy History of tubal ligation History of mastectomy History of cholecystectomy Hx of appendectomy Social History household members: family current occupational status: employed Smoking Status: Current every day smoker tobacco type: cigarettes how long ago did patient quit smokin months ago alcohol intake: former substance use type: does not use caffeine: Yes ROS ROS ED Constitutional Constitutional ED: Reports malaise; Denies chills or fever(s) Gastrointestinal Gastrointestinal: Reports nausea Musculoskeletal Musculoskeletal: Reports extremity pain; Denies neck pain Integumentary Reports abscess; Denies Abrasions or rash Neurologic Neurologic: Denies paresthesias or weakness Psychiatric Psychiatric: Reports anxiety; Denies suicidal thoughts EXAM Physical Exam Const Vital Signs: 05/11/24 23:42 Temperature 98.2 F Temperature Source Oral Pulse Rate 105 H Respiratory Rate 20 H Blood Pressure 169/105 H Blood Pressure Mean 126 Pulse Ox 100 Oxygen Delivery Method Room Air Positive well nourished and well developed General Appearance ED: well developed and NAD Neck full ROM and supple Resp normal respiratory effort Effort and Inspection: able to speak in complete sentences Back/Spine normal ROM and normal to inspection Extremity full ROM Extremity Narrative: See below skin exam; 2 cm abscess lateral left calf no fluctuance but there is some induration. No spontaneous discharge. All compartments soft and nondistended no other lesions or rashes. Neuro oriented x3, no focal motor deficits, no sensory deficits noted and gait normal Sensorium / Orientation: alert Motor Exam: strength 5/5 throughout Psych mental status grossly normal and thought process normal Mood & Affect: anxious Skin Skin Narrative: 2 cm abscess with a little bit of surrounding erythema lateral left calf very tender to palpation with a nearby superficial excoriated wound about 1 cm, there is no spontaneous drainage. There is some ecchymosis over the actual abscess, but mild blanching surrounding cellulitis without petechia or purpura. No lymphangitis. No other areas of tenderness. Rashes: no rashes MDM MDM MDM Narrative Medical decision making narrative: This looks like a small abscess, not a SVT or DVT. I recommend incision and drainage, or it would be reasonable to use local anesthesia or freeze spray for temporary anesthesia to do a needle aspiration. We discussed the possible natural course with all of these options, or just doing antibiotics without anything. She understands the risk of worsening, but does not want to do any procedures on this right now and just wants antibiotics and states if it is worse she will return. She understands also that if it is MRSA, which I am going to cover her for, even with appropriate antimicrobial therapy, it will likely worsen before it gets better especially if it currently contains purulence. Discharge Plan Triage Chief Complaint: Wound Check Other Complaint: Dizziness ED Provider: Bimal Cortez Dx/Rx/DC Orders Clinical Impression: Abscess of left lower leg Instructions: ED Abscess Antibiotic Treatment Only Prescriptions: New sulfamethoxazole-trimethoprim 800-160 mg tablet 1 tab PO BID Qty: 20 0RF Continued trazodone 50 mg tablet 50 mg PO QHS albuterol sulfate 90 mcg/actuation HFA aerosol inhaler 1 inh inhalation PRN alprazolam 0.5 mg tablet 0.5 mg PO BID Patient Comments: TAKE 1 TABLET BY MOUTH TWICE DAILY zolpidem 10 mg tablet 10 mg PO DAILY methscopolamine 5 mg tablet 5 mg PO BID oxycodone-acetaminophen [Percocet] 5-325 mg tablet 1 tab PO Q6H PRN (Reason: pain) 3 Days Qty: 12 0RF Discontinued amoxicillin-pot clavulanate 875-125 mg tablet 1 tab PO BID 7 Days Qty: 14 0RF Primary Care Provider: Dex Wilkinson Referrals: Dex Wilkinson MD [Primary Care Provider] - 3-5 Days if not improving (or return to ER) Print Language: Tunisian Disposition Disposition: Home, Self Care
[2024-05-12] MEDS: Smz/Tmp Ds Tablet 1 TABLET PO (00:22)
== END 2024-05-12 00:27 | disposition home or self-care (01) ==
LOC: ED 05-12 00:17
PROVIDERS: Emergency Provider Emergency Medicine; PCP Family Medicine; Visit Provider Emergency Medicine
DX: L02.416 Cutaneous abscess of left lower limb (principal); I42.2 Other hypertrophic cardiomyopathy; R42 Dizziness and giddiness; J45.909 Unspecified asthma, uncomplicated; F17.210 Nicotine dependence, cigarettes, uncomplicated; Z95.810 Presence of automatic (implantable) cardiac defibrillator
CPT/HCPCS: 99283

== ENCOUNTER 2024-07-01 19:51 | Emergency (ER) | payer BC, SELFPAY ==
[2024-07-01 19:52] VITALS: BP 148/76; PULSE 90; RESP 20; TEMP 36.8; O2SAT 100; BMI 22.0
--- NOTE | 2024-07-01 20:18 | CT_ITS ---
PROCEDURE: ABDOMEN/PELVIS W IV CONT ONLY 07/01/2024 REASON FOR EXAM: ABDOMINAL PAIN TECHNIQUE: Abdomen and pelvis CT with intravenous contrast. Coronal and Sagittal reconstruction series were provided. PATIENT PREPARATION: Per protocol ORAL CONTRAST TYPE: None. AMOUNT: mL CONTRAST: Isovue 370 VOLUME: 75 mL Not Provided Gauge IV One or more dose reduction techniques were used (e.g., Automated exposure control, adjustment of the mA and/or kV according to patient size, use of iterative reconstruction technique. RADIATION DOSE SUMMARY: CTDlvol: 41 mGy DLP: 412 mGycm COMPARISON: None FINDINGS: Lung bases: Bilateral pleural effusions with atelectasis. Heart size is normal. No pericardial effusion. Liver: Hepatomegaly with heterogeneous liver parenchyma, no suspicious lesions. Gallbladder: Status post cholecystectomy. Spleen: Heterogeneous appearance of the spleen, likely phase of contrast. Pancreas: Normal size without evidence of mass surrounding inflammation or ductal dilation. Adrenals: Unremarkable Kidneys: Unremarkable Bladder: Unremarkable Reproductive Organs: Multiple prominent pelvic vessels, concerning for pelvic congestion. Bowel: Evaluation of the bowel loops are limited due to lack of oral contrast. The stomach is unremarkable. No inflammatory changes of the proximal small bowel. There is subtle wall thickening of the distal and terminal ileum with hyperenhancement of the wall. Mild stool burden within the right colon. No inflammatory changes of the bowel loops. Appendix: The appendix is not clearly visualized. Lymph nodes: No lymphadenopathy. Vasculature: Unremarkable Peritoneum / Retroperitoneum: Small pelvic free fluid. Bones: Unremarkable CT/Abdomen/Pelvis W IV Cont ONLY IMPRESSION: Subtle wall thickening of the distal and terminal ileum with hyperenhancement o f the wall, suspicious for inflammatory bowel disease, please correlate clinically. Hepatomegaly. Suspected pelvic congestion. Small pelvic free fluid. Small bilateral pleural effusion with atelectasis. Reading Location: [facility]
--- NOTE | 2024-07-01 20:20 | EDS_ITS ---
HPI <MARCIO Haywood - Last Filed: 07/01/24 21:55> HPI - GI History of Present Illness Chief Complaint: Abd Pain Narrative Narrative: Patient presenting today due to upper/mid sharp abdominal pain she has had consistently since last night. She reports a few episodes of vomiting since yesterday, her last bowel movement was earlier today. She has had multiple abdominal surgeries in the past including cholecystectomy, appendectomy, oophorectomy, and tubal ligation. She reports feeling dehydrated. She denies fevers, chills, hematemesis, blood in the stool, and urinary symptoms. She has a PMH of hypertrophic cardiomyopathy with ICD. PFSH <MARCIO Haywood - Last Filed: 07/01/24 21:55> [facility] Medical History Pulmonary embolism Endometrial cancer Cervical cancer DVT (deep venous thrombosis) USP current use of 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 Ovarian cancer GERD (gastroesophageal reflux disease) Insomnia Anxiety Collapsed lung History of blood clots Asthma Breast cancer Pacemaker ICD (implantable cardioverter-defibrillator) in place Hypertrophic cardiomyopathy Home Medications ?Medication ?Instructions ?Recorded ?Last Taken ?Type alprazolam 0.5 mg tablet 0.5 mg PO BID 11/13/21 Unkno wn History zolpidem 10 mg tablet 10 mg PO DAILY 11/13/21 Unkn own History albuterol sulfate 90 mcg/actuation 1 inh inhalation IL N 07/26/23 Unknown History aerosol inhaler trazodone 50 mg tablet 50 mg PO QHS 07/26/23 Unknow n History methscopolamine 5 mg tablet 5 mg PO BID 11/01/23 Unkno wn History oxycodone-acetaminophen 5 mg-325 1 tab PO Q6H PRN pain 3 days #12 11/02/23 Unknown Rx mg tablet (Percocet) tabs sulfamethoxazole 800 1 tab PO BID #20 TABLETS 04/07 Unknown Rx mg-trimethoprim 160 mg tablet oxycodone-acetaminophen 5 mg-325 1 tab PO Q6H PRN pain 3 days #12 07/01/24 Unknown Rx mg tablet (Endocet) tabs prednisone 20 mg tablet 40 mg (2 x 20 mg) PO DAILY 5 days 07/01/24 Unknown Rx #10 tabs Allergy/AdvReac Type Severity Reaction Status Date / Time morphine Allergy Mild Hives Verified 07/01/24 20:02 codeine Allergy Hives Verified 07/01/24 20:02 erythromycin base Allergy PT UNSURE Verified 07/01/24 20:02 OF REACTION Fish Containing Products Allergy Other Verified 07/01/24 20:02 levofloxacin Allergy PT UNSURE Verified 07/01/24 20:02 OF REACTION lorazepam (From Ativan) Allergy Other Verified 07/01/24 20:02 shellfish derived Allergy Other Verified 07/01/24 20:02 tramadol Allergy Hives Verified 07/01/24 20:02 trimethobenzamide (From Allergy Other Verified 07/01/24 20:02 Tigan) gabapentin (From Neurontin) AdvReac Severe Anaphylaxis Verified 07/01/24 20:02 acetaminophen (From Vicodin) AdvReac Other Verified 07/01/24 20:02 hydrocodone (From Vicodin) AdvReac Other Verified 07/01/24 20:02 metoclopramide (From Reglan) AdvReac Other Verified 07/01/24 20:02 Family History Father Heart disease Idiopathic hypertrophic subaortic stenosis, hypertrophic obstructive cardiomyopathy, congestive heart failure Mother Breast cancer DVT (deep venous thrombosis) Sister Hypertrophic obstructive cardiomyopathy heart transplant at age 34 Cancer Brain, breast, and colon Grandfather Heart disease at age 45 Grandmother CVA (cerebral vascular accident) age 43 Surgical History History of oophorectomy History of cervical polypectomy History of colonoscopy History of tubal ligation History of mastectomy History of cholecystectomy Hx of appendectomy Social History household members: family current occupational status: employed Smoking Status: Current every day smoker tobacco type: cigarettes how long ago did patient quit smokin months ago alcohol intake: former substance use type: does not use caffeine: Yes ROS <MARCIO Haywood - Last Filed: 07/01/24 21:55> ROS ED Constitutional Constitutional ED: Denies chills or fever(s) Cardiovascular Cardiovascular: Denies chest pain Respiratory/Chest Respiratory/Chest: Denies dyspnea Gastrointestinal Gastrointestinal: Reports abdominal pain, nausea and vomiting; Denies constipation, diarrhea, hematemesis, hematochezia or melena Genitourinary Genitourinary ED: Denies dysuria, hematuria or urinary urgency Musculoskeletal Musculoskeletal: Denies arthralgias or myalgias Integumentary Denies rash Neurologic Neurologic: Denies weakness EXAM <MARCIO Haywood - Last Filed: 07/01/24 21:55> Physical Exam Const Vital Signs: 07/01/24 19:52 Temperature 98.3 F Temperature Source Temporal Pulse Rate 90 Respiratory Rate 20 H Blood Pressure 148/76 H Blood Pressure Mean 100 Pulse Ox 100 Oxygen Delivery Method Room Air Positive well nourished, well developed and no apparent distress General Appearance ED: well developed HEENT Reports normocephalic and head/scalp atraumatic Mouth ED: Yes moist mucous membranes normal Eyes PERRL and EOMs intact bilaterally Neck full ROM and supple Chest Wall inspection of chest normal Resp normal respiratory effort and clear to auscultation bilaterally Cardio regular rate and regular rhythm GI soft to palpation, non-distended and no masses GI Narrative: Upper/mid abdominal tenderness to palpation, examination somewhat limited as patient reports pain even to light touch. Back/Spine normal ROM and normal to inspection Extremity normal to inspection and full ROM Neuro oriented x3, CN's II-XII intact bilaterally, moves all extremities, no focal motor deficits and no sensory deficits noted Sensorium / Orientation: awake and alert Psych mental status grossly normal and thought process normal Skin no rashes or lesions noted and no wounds <Dr. Babar Wood, DO - Last Filed: 07/03/24 00:40> Physical Exam Const Vital Signs: 07/01/24 19:52 Temperature 98.3 F Temperature Source Temporal Pulse Rate 90 Respiratory Rate 20 H Blood Pressure 148/76 H Blood Pressure Mean 100 Pulse Ox 100 Oxygen Delivery Method Room Air MDM <MARCIO Haywood - Last Filed: 07/01/24 21:55> [facility] Narrative Medical decision making narrative: Patient presenting today with abdominal pain, nausea, and vomiting that started last night. She is nontoxic-appearing. She does have upper/mid abdominal tenderness on exam. CT scan of the abdomen pelvis will be obtained to assess for bowel obstruction, mass given her history of multiple cancers including breast and ovarian, and other abnormality. Patient given IV fluids, Zofran, Toradol. She reported still having pain and did request further pain medication, given her history of allergy to morphine this was not given, she has tolerated Dilaudid in the past and was given a dose of this here. In reviewing her labs, she has a WBC of 12.9, this has been elevated in the past. CMP largely unremarkable. Lipase 35. CT scan is pending at this time. Lab Data Attestation: I reviewed the patient's lab results. Labs: Laboratory Results - last 24 hr 07/01/24 20:20 WBC 12.9 H RBC 4.50 Hgb 14.7 Hct 43.5 MCV 96.7 MCH 32.7 H MCHC 33.8 RDW Std Deviation 53.1 H RDW Coeff of Damon 14.9 H Plt Count 239 MPV 10.7 Immature Gran % (Auto) 0.400 Neut % (Auto) 87.7 H Lymph % (Auto) 7.5 L Rapides % (Auto) 3.1 Eos % (Auto) 0.9 Baso % (Auto) 0.4 Absolute Neuts (auto) 11.3 H Absolute Lymphs (auto) 0.97 Nucleated RBC % 0 Sodium 139 Potassium 4.0 Chloride 109 H Carbon Dioxide 19.2 L Anion Gap 12 BUN 16 Creatinine 1.04 Estim Creat Clear Calc 59.61 Est GFR (MDRD) Non-Af 68 BUN/Creatinine Ratio 14.9 Glucose 103 H Calcium 9.0 Total Bilirubin 0.66 AST 30 ALT 27 Alkaline Phosphatase 116 H Total Protein 6.7 Albumin 4.2 Globulin 2.5 Albumin/Globulin Ratio 1.7 Lipase 35 Serum , Qual NEGATIVE Radiography Diagnostic Testing: Clinical Impression(s) from Imaging Studies Abdomen/Pelvis CT 07/01/24 20:18 IMPRESSION: Subtle wall thickening of the distal and terminal ileum with hyperenhancement of the wall, suspicious for inflammatory bowel disease, please correlate clinically. Hepatomegaly. Suspected pelvic congestion. Small pelvic free fluid. Small bilateral pleural effusion with atelectasis. Reading Location: [facility] <Dr. Babar Wood, DO - Last Filed: 07/03/24 00:40> [facility] Lab Data Labs: Laboratory Results - last 24 hr 07/01/24 20:20 WBC 12.9 H RBC 4.50 Hgb 14.7 Hct 43.5 MCV 96.7 MCH 32.7 H MCHC 33.8 RDW Std Deviation 53.1 H RDW Coeff of Damon 14.9 H Plt Count 239 MPV 10.7 Immature Gran % (Auto) 0.400 Neut % (Auto) 87.7 H Lymph % (Auto) 7.5 L Rapides % (Auto) 3.1 Eos % (Auto) 0.9 Baso % (Auto) 0.4 Absolute Neuts (auto) 11.3 H Absolute Lymphs (auto) 0.97 Nucleated RBC % 0 Sodium 139 Potassium 4.0 Chloride 109 H Carbon Dioxide 19.2 L Anion Gap 12 BUN 16 Creatinine 1.04 Estim Creat Clear Calc 59.61 Est GFR (MDRD) Non-Af 68 BUN/Creatinine Ratio 14.9 Glucose 103 H Calcium 9.0 Total Bilirubin 0.66 AST 30 ALT 27 Alkaline Phosphatase 116 H Total Protein 6.7 Albumin 4.2 Globulin 2.5 Albumin/Globulin Ratio 1.7 Lipase 35 Serum , Qual NEGATIVE Radiography Diagnostic Testing: Clinical Impression(s) from Imaging Studies Abdomen/Pelvis CT 07/01/24 20:18 IMPRESSION: Subtle wall thickening of the distal and terminal ileum with hyperenhancement of the wall, suspicious for inflammatory bowel disease, please correlate clinically. Hepatomegaly. Suspected pelvic congestion. Small pelvic free fluid. Small bilateral pleural effusion with atelectasis. Reading Location: [facility] Treatment and Re-Evaluation :: I evaluated the patient with the physician commercial escrow assistant. I agree with their history of present illness physical exam and plan of care. Below is my documentation of my individual encounter with the patient. Patient is a 43-year-old female with past medical history of hypertrophic cardiomyopathy and history of ICD placement. She states that over the last few days she has noticed pain in the right upper mid abdomen. She denies any fevers or chills. She reports nausea without vomiting. She states that no one around her has been sick. She states that she has tried [id number] medications without symptom improvement and secondary to this comes in for evaluation PE: General: Awake alert no acute distress Heart: Regular rate and rhythm; radial and carotid pulses are equal and symmetric Lungs: Clear to auscultation without signs of respiratory distress Abdomen: Soft and nondistended with hypoactive bowel sounds. There is pain on palpation and voluntary guarding in the midepigastric and right upper quadrant region. Negative Langley sign. No pulsatile mass. No fluid wave. No increased tympany MDM: Patient arrived to the ER hypertensive but otherwise with stable vitals. With pain in the midepigastric to right upper quadrant region and guarding there is concern for biliary colic versus acute cholecystitis versus pancreatitis versus colitis. Patient underwent basic laboratory testing and a CT scan. Labs revealed no clinically significant findings and CT scan showed changes concerning for inflammatory bowel disease in the ileum which correlates with the patient's location of pain. At this time she does not have secondary infection there is no sign of obstruction or perforation and therefore there is no need for admission but treatment with symptomatic medications. Patient was informed of this and the need to follow-up with GI for definitive diagnosis and was given referral to Dr. Myles. But at this time with stable vitals and no signs of secondary infection obstruction or perforation she is safe for discharge Discharge Plan Triage Chief Complaint: Abd Pain ED Midlevel Provider: Anita Willis ED Provider: Babar Wood Dx/Rx/DC Orders Clinical Impression: Inflammatory bowel disease, Hypertrophic cardiomyopathy, ICD (implantable cardioverter-defibrillator) in place, GERD (gastroesophageal reflux disease) Instructions: Abdominal Pain, What Is Crohn's Disease Prescriptions: New prednisone 20 mg tablet 40 mg PO DAILY 5 Days Qty: 10 0RF oxycodone-acetaminophen [Endocet] 5-325 mg tablet 1 tab PO Q6H PRN (Reason: pain) 3 Days Qty: 12 0RF No Action trazodone 50 mg tablet 50 mg PO QHS albuterol sulfate 90 mcg/actuation HFA aerosol inhaler 1 inh inhalation PRN alprazolam 0.5 mg tablet 0.5 mg PO BID Patient Comments: TAKE 1 TABLET BY MOUTH TWICE DAILY zolpidem 10 mg tablet 10 mg PO DAILY sulfamethoxazole-trimethoprim 800-160 mg tablet 1 tab PO BID Qty: 20 0RF methscopolamine 5 mg tablet 5 mg PO BID oxycodone-acetaminophen [Percocet] 5-325 mg tablet 1 tab PO Q6H PRN (Reason: pain) 3 Days Qty: 12 0RF Stand Alone Forms: ED Work / School Excuse Primary Care Provider: Dex Wilkinson Referrals: Dex Wilkinson MD [Primary Care Provider] - Quang Myles DO [Med Staff - Active Staff] - (Inflammatory bowel disease) Activity Restrictions/Additional Instructions: Your CT scan showed inflammation of your ileum concerning for inflammatory bowel disease. Please follow-up with gastroenterology to discuss further evaluation of this. Take the prescribed medication as directed to help control symptoms and return to the ER should you have any further concerns Print Language: [place] Disposition Disposition: Home, Self Care Discharge Date/Time: 07/01/24 23:38
[2024-07-01] MEDS: 0.9% Normal Saline (1000mL) 1,000 ML 999 ML IV (20:24)
[2024-07-01] MEDS: Ondansetron 4 MG/2 ML Vial IV (20:24)
[2024-07-01] MEDS: Ketorolac 15 MG/ML Vial IV (20:24)
[2024-07-01 20:35] LABS: Absolute Lymphocyte Count 0.97 X10^3/uL (0.83-4.51); Absolute Neutrophil Count 11.3 X10^3/uL (2.0-7.7); Basophil# 0.05 X10^3/uL; Basophil% 0.4 % (0-1); Eosinophil# 0.11 X10^3/uL; Eosinophils% 0.9 % (0-5); Hematocrit 43.5 % (37-47); Hemoglobin 14.7 g/dL (12.0-15.0); Lymphocyte # 0.97 X10^3/ul (0.83-4.51); Lymphocyte % 7.5 % (19-41); Mean Corp Hgb Conc 33.8 g/dL (32-36); Mean Corpuscular Hgb 32.7 pg (27.0-32.0); Mean Corpuscular Volume 96.7 fL (81-99); Mean Platelet Vol. 10.7 fl (6.2-12.0); Monocyte% 3.1 % (0-10); NRBC Flagged by Analyzer 0 % (0-5); Neutrophil # 11.28 X10^3/uL (2.7-7.7); Neutrophil % 87.7 % (47-70); Platelet Count 239 K/mm3 (150-450); RBC Distribution Width CV 14.9 % (11.6-14.6); RBC Distribution Width SD 53.1 fl (35.1-43.9); White Blood Count 12.9 K/mm3 (4.4-11.0)
[2024-07-01 20:58] LABS: Internal QC Validated? YES +Cl - CLEAR BKGD; Pregnancy, Serum, hCG Quali. NEGATIVE Negative
[2024-07-01 21:00] LABS: ALB/GLOB Ratio 1.7 RATIO (0.9-2.4); AST(SGOT) 30 U/L (<=31); Alanine Aminotransfer ALT/SGPT 27 U/L (<=34); Albumin, Serum 4.2 g/dL (3.5-5.0); Alkaline Phosphatase 116 U/L (35-104); Anion Gap 12 (5-15); BUN 16 mg/dL (4-19); BUN/Creat Ratio 14.9 RATIO (10-20); Carbon Dioxide 19.2 mmol/L (21.0-32.0); Chloride 109 mmol/L (98-108); Creatinine, Serum 1.04 mg/dL (0.70-1.20); EST Glomerular Filtration Rate 68 (>60); Estimated Creatinine Clearance 59.61 ml/min (50-250); Globulin 2.5 g/dL (2.2-4.2); Glucose 103 mg/dL (70-99); Lipase 35 U/L (13-75); Protein, Total 6.7 g/dL (5.9-8.4); Sodium Level 139 mmol/L (133-145); Total Bilirubin 0.66 mg/dL (0.00-1.30)
[2024-07-01] MEDS: HYDROmorphone 0.5 MG/0.5 ML SYRINGE IV (21:07)
[2024-07-01 21:52] VITALS: BP 133/84; PULSE 76; RESP 15; O2SAT 98
[2024-07-01 22:07] LABS: Mucous, Urine 0 SEEN /hpf (<or=2+); White Blood Cells 0 SEEN /hpf (0-5)
[2024-07-01 22:38] LABS: Color, Urine Yellow (Yellow); Glucose, Dipstick Normal (Normal); Ketone-Dipstick Negative (Negative); Leukocyte Esterase-Dipstick Negative /ul (Negative); Nitrite-Dipstick Negative (Negative); Occult Blood-Urine 50 /ul (Negative); Protein-Dipstick 30 mg/dl (Negative); Urine Bilirubin Dipstick Negative (Negative); Urine Clarity Clear (Clear); Urine Urobilinogen Normal (Normal)
[2024-07-01 23:01] LABS: Bacteria 2+ /hpf (None Seen); Red Blood Cells-Urine 0-5 SEEN /hpf (0-5); Squamous Epithelial Cells - UA 0-5 SEEN /hpf (5-10)
[2024-07-01 23:24] VITALS: BP 136/100; PULSE 70; RESP 17; TEMP 36.6; O2SAT 99
[2024-07-01] MEDS: oxyCODONE 5 MG Tablet PO (23:25)
[2024-07-01] MEDS: HYDROmorphone 1 MG/ML Syringe IV (23:26)
[2024-07-01] MEDS: dexAMETHasone 10 MG/ML Vial IV (23:27)
== END 2024-07-01 23:38 | disposition home or self-care (01) ==
PROVIDERS: Physician Assistant; Emergency Provider Emergency Medicine; PCP Family Medicine; Visit Provider Emergency Medicine
DX: K52.9 Noninfective gastroenteritis and colitis, unspecified (principal); I42.2 Other hypertrophic cardiomyopathy; K21.9 Gastro-esophageal reflux disease without esophagitis; F17.210 Nicotine dependence, cigarettes, uncomplicated; Z95.810 Presence of automatic (implantable) cardiac defibrillator
CPT/HCPCS: 74177; 80053; 81001; 83690; 84703; 85025; 90471; 96361; 96374; 96375; 96376; 99283; Q9967; A4216; J2405

== ENCOUNTER 2024-07-03 13:30 | Emergency (ER) | payer BC, SELFPAY ==
[2024-07-03 13:30] VITALS: BP 132/87; PULSE 66; RESP 15; TEMP 36.1; O2SAT 99; BMI 22.9
--- NOTE | 2024-07-03 14:24 | ED.VIS.GI ---
HPI HPI - GI History of Present Illness Chief Complaint: Abd Pain Informant: patient Narrative Narrative: 43-year-old female presenting to the emergency room with a chief complaint of abdominal pain. Patient states that last Tuesday she had a dull ache on the right side of her abdomen that radiates to the left. She tells me that on Tuesday became worse and by Tuesday she was seen in the emergency department where a CT scan showed inflammation of her terminal ileum. She states she was placed on pain medication as well as prednisone and today she followed up with gastroenterology. Today she saw the physician assistant health educator and was sent to the emergency room after being scheduled for colonoscopy. She tells me that last fall she had a colonoscopy with another GI doctor and was told I had signs of Crohn's but can manage it on my own. Patient states today she has waves of sharp pain starting in the mid abdomen on the left side of her abdomen. She states she really has not had a bowel movement today. Patient states that GI told her they were unable to manage her pain in the outpatient setting that she needed to come to emergency. [facility] Medical History Pulmonary embolism Endometrial cancer Cervical cancer DVT (deep venous thrombosis) alf current use of 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 Ovarian cancer GERD (gastroesophageal reflux disease) Insomnia Anxiety Collapsed lung History of blood clots Asthma Breast cancer Pacemaker ICD (implantable cardioverter-defibrillator) in place Hypertrophic cardiomyopathy Home Medications ?Medication ?Instructions ?Recorded ?Last Taken ?Type alprazolam 0.5 mg tablet 0.5 mg PO BID 11/13/21 Unknown History zolpidem 10 mg tablet 10 mg PO DAILY 11/13/21 Unknown History albuterol sulfate 90 mcg/actuation 1 inh inhalation PRN 07/26/23 Unknown History aerosol inhaler trazodone 50 mg tablet 50 mg PO QHS 07/26/23 Unknown History methscopolamine 5 mg tablet 5 mg PO BID 11/01/23 Unknown History oxycodone-acetaminophen 5 mg-325 1 tab PO Q6H PRN pain 3 days #12 11/02/23 Unknown Rx mg tablet (Percocet) tabs sulfamethoxazole 800 1 tab PO BID #20 TABLETS 05/12/24 Unknown Rx mg-trimethoprim 160 mg tablet oxycodone-acetaminophen 5 mg-325 1 tab PO Q6H PRN pain 3 days #12 07/01/24 Unknown Rx mg tablet (Endocet) tabs prednisone 20 mg tablet 40 mg (2 x 20 mg) PO DAILY 5 days 07/01/24 Unknown Rx #10 tabs dicyclomine 20 mg tablet 20 mg PO TID PRN abdominal pain 07/03/24 Unknown Rx #30 tabs ketorolac 10 mg tablet 10 mg PO Q8H PRN pain #15 tabs 07/03/24 Unknown Rx Allergy/AdvReac Type Severity Reaction Status Date / Time morphine Allergy Mild Hives Verified 07/03/24 13:30 codeine Allergy Hives Verified 07/03/24 13:30 erythromycin base Allergy PT UNSURE Verified 07/03/24 13:30 OF REACTION Fish Containing Products Allergy Other Verified 07/03/24 13:30 levofloxacin Allergy PT UNSURE Verified 07/03/24 13:30 OF REACTION lorazepam (From Ativan) Allergy Other Verified 07/03/24 13:30 shellfish derived Allergy Other Verified 07/03/24 13:30 tramadol Allergy Hives Verified 07/03/24 13:30 trimethobenzamide (From Allergy Other Verified 07/03/24 13:30 Tigan) gabapentin (From Neurontin) AdvReac Severe Anaphylaxis Verified 07/03/24 13:30 acetaminophen (From Vicodin) AdvReac Other Verified 07/03/24 13:30 hydrocodone (From Vicodin) AdvReac Other Verified 07/03/24 13:30 metoclopramide (From Reglan) AdvReac Other Verified 07/03/24 13:30 Family History Father Heart disease Idiopathic hypertrophic subaortic stenosis, hypertrophic obstructive cardiomyopathy, congestive heart failure Mother Breast cancer DVT (deep venous thrombosis) Sister Hypertrophic obstructive cardiomyopathy heart transplant at age 34 Cancer Brain, breast, and colon Grandfather Heart disease at age 45 Grandmother CVA (cerebral vascular accident) age 43 Surgical History History of oophorectomy History of cervical polypectomy History of colonoscopy History of tubal ligation History of mastectomy History of cholecystectomy Hx of appendectomy Social History household members: family current occupational status: employed Smoking Status: Current every day smoker tobacco type: cigarettes how long ago did patient quit smokin months ago alcohol intake: former substance use type: does not use caffeine: Yes ROS ROS ED Constitutional Constitutional ED: Denies chills, fever(s) or weight loss Eyes Eyes: Denies change in vision or diplopia ENT ENT ED: Denies ear pain, rhinorrhea or sore throat Cardiovascular Cardiovascular: Denies chest pain, orthopnea, palpitations or racing heartbeat Respiratory/Chest Respiratory/Chest: Denies cough, dyspnea or orthopnea Gastrointestinal Gastrointestinal: Reports abdominal pain, diarrhea, nausea and vomiting Genitourinary Genitourinary ED: Denies dysuria, hematuria or urinary frequency Musculoskeletal Musculoskeletal: Denies arthralgias or myalgias Integumentary Denies abscess or rash Neurologic Neurologic: Denies headache(s) or weakness Psychiatric Psychiatric: Denies anxiety, depression, suicidal ideation or suicidal thoughts Endocrine Endocrinology: Denies polydipsia, polyphagia or polyuria Allergic/Immunologic Allergic/Immunologic ED: Denies mouth swelling, tongue swelling or urticaria EXAM Physical Exam Narrative Exam Narrative: Patient winces every 10 seconds or so holding her abdomen laying on her left side. Const Vital Signs: 07/03/24 13:30 07/03/24 15:30 07/03/24 16:58 Temperature 97 F L Temperature Source Temporal Pulse Rate 66 78 69 Respiratory Rate 15 19 H 19 H Blood Pressure 132/87 H 147/87 H 149/78 H Blood Pressure Mean 102 107 101 Pulse Ox 99 98 99 Oxygen Delivery Method Room Air Room Air Room Air 07/03/24 17:55 Temperature 98.2 F Temperature Source Pulse Rate 68 Respiratory Rate 19 H Blood Pressure 142/93 H Blood Pressure Mean 109 Pulse Ox 99 Oxygen Delivery Method Positive well nourished and well developed General Appearance ED: well developed HEENT Reports normocephalic, head/scalp atraumatic and moist mucous membranes Eyes PERRL and EOMs intact bilaterally Neck no lymphadenopathy, supple and no JVD Resp normal respiratory effort and clear to auscultation bilaterally Cardio regular rate, regular rhythm and no murmurs GI Inspection: Negative for abdominal distention Auscultation: normoactive bowel sounds Palpation: soft, tender other (Diffusely tender to palpation.) and guarding; Negative for mass Back/Spine no CVA tenderness and normal ROM Extremity normal to inspection General Extremety ED: Negative for edema General Extremity: Negative for edema Neuro oriented x3 and CN's II-XII intact bilaterally Sensorium / Orientation: alert Motor Exam: strength 5/5 throughout Psych mental status grossly normal Mood & Affect: Negative for depressed or tearful Skin no rashes or lesions noted and no wounds MDM MDM MDM Narrative Medical decision making narrative: Differential diagnosis includes but not limited to inflammatory bowel disease small bowel obstruction diverticulitis pancreatitis choledocholithiasis dehydration kidney stone UTI renal infarct renal abscess Patient's white count is 22,000. I believe that this is in part due to steroid use. Hemoglobin 13.8. Normal BMP except for glucose of 104. Liver enzymes showed an AST of 33 alk phos 111. Lipase 25 test is negative. Urinalysis contaminated but no overt infection. CT of the abdomen pelvis with IV contrast was obtained read by radiology reviewed by myself. I also discussed the patient's CT and her case with Dr. Myles from gastroenterology. Patient received Dilaudid Toradol Zofran and IV fluids. I do not see an obvious cause for the patient's symptomology. I did encourage her to follow-up with gynecology regarding the CT findings in the pelvis which I do not believe are causing her upper left abdominal pain. I would encourage her to keep her appointment with gastroenterology for colonoscopy as well as schedule ED follow-up with her primary care doctor. Unguinal write for Bentyl and Toradol at home. Home medication list was reviewed. History & Record Review Discussion w/independent historian: Patient Additional record(s) reviewed:: Prior outpatient record, Prior ED visit and Prior labs Lab Data Attestation: I reviewed the patient's lab results. Labs: Laboratory Results - last 24 hr 07/03/24 07/03/24 07/03/24 13:42 14:35 15:20 WBC 22.0 H RBC 4.23 Hgb 13.8 Hct 41.5 MCV 98.1 MCH 32.6 H MCHC 33.3 RDW Std Deviation 54.4 H RDW Coeff of Damon 15.3 H Plt Count 237 MPV 11.2 Immature Gran % (Auto) 0.900 Neut % (Auto) 92.0 H Lymph % (Auto) 4.2 L K[place] % (Auto) 2.6 Eos % (Auto) 0.1 Baso % (Auto) 0.2 Absolute Neuts (auto) 20.3 H Absolute Lymphs (auto) 0.93 Nucleated RBC % 0 Sodium 138 Potassium 4.4 Chloride 106 Carbon Dioxide 21.4 Anion Gap 10 BUN 14 Creatinine 0.81 Estim Creat Clear Calc 76.53 Est GFR (MDRD) Non-Af 91 BUN/Creatinine Ratio 17.1 Glucose 104 H Calcium 9.3 Total Bilirubin 0.64 Direct Bilirubin 0.27 AST 33 H ALT 33 Alkaline Phosphatase 111 H Total Protein 6.5 Albumin 4.2 Globulin 2.3 Lipase 25 Serum , Qual NEGATIVE Urine Color Yellow Urine Clarity Sl. Cloudy Urine pH 6.5 Ur Specific Carroll 1.010 Urine Protein 30 H Urine Glucose (UA) Normal Urine Ketones Negative Urine Occult Blood 25 H Urine Nitrite Negative Urine Bilirubin Negative Urine Urobilinogen Normal Ur Leukocyte Esterase Negative Urine RBC 0-5 SEEN Urine WBC 0-5 SEEN Ur Squamous Epith Cells 10-25 SEEN Urine Bacteria 1+ Urine Mucus 0 SEEN Radiography Diagnostic Testing: Clinical Impression(s) from Imaging Studies Abdomen/Pelvis CT 07/03/24 15:10 IMPRESSION: Hepatomegaly and fatty infiltration of the liver. Small amount of free fluid in the pelvis. Findings suggestive of a pelvic congestion syndrome. Reading Location: [place] [address] Management Discussion w/another healthcare provider: Percussion Instructor (Dr Myles) Discharge Plan Triage Chief Complaint: Abd Pain ED Provider: Nabor Frey Dx/Rx/DC Orders Clinical Impression: Abdominal pain Prescriptions: New ketorolac 10 mg tablet 10 mg PO Q8H PRN (Reason: pain) Qty: 15 0RF Rx Instructions: maximum total duration of 5 days from all oral, intranasal, or parenteral formulations dicyclomine 20 mg tablet 20 mg PO TID PRN (Reason: abdominal pain) Qty: 30 0RF No Action trazodone 50 mg tablet 50 mg PO QHS albuterol sulfate 90 mcg/actuation HFA aerosol inhaler 1 inh inhalation PRN alprazolam 0.5 mg tablet 0.5 mg PO BID Patient Comments: TAKE 1 TABLET BY MOUTH TWICE DAILY zolpidem 10 mg tablet 10 mg PO DAILY sulfamethoxazole-trimethoprim 800-160 mg tablet 1 tab PO BID Qty: 20 0RF prednisone 20 mg tablet 40 mg PO DAILY 5 Days Qty: 10 0RF oxycodone-acetaminophen [Endocet] 5-325 mg tablet 1 tab PO Q6H PRN (Reason: pain) 3 Days Qty: 12 0RF methscopolamine 5 mg tablet 5 mg PO BID oxycodone-acetaminophen [Percocet] 5-325 mg tablet 1 tab PO Q6H PRN (Reason: pain) 3 Days Qty: 12 0RF Primary Care Provider: Dex Wilkinson Referrals: Dex Wilkinson MD [Primary Care Provider] - As soon as possible Friend,DO Quang [Med Staff - Active Staff] - Keep David appointment Sherrill Bryan NP, DESIZING MACHINE OFFBEARER-C [Med Staff - Adv Practice Prof] - (for gynecology evaluation) Print Language: Kyrgyz Disposition Disposition: Home, Self Care Discharge Date/Time: 07/03/24 18:18
[2024-07-03 14:33] LABS: Absolute Lymphocyte Count 0.93 X10^3/uL (0.83-4.51); Absolute Neutrophil Count 20.3 X10^3/uL (2.0-7.7); Basophil# 0.04 X10^3/uL; Basophil% 0.2 % (0-1); Eosinophil# 0.02 X10^3/uL; Eosinophils% 0.1 % (0-5); Hematocrit 41.5 % (37-47); Hemoglobin 13.8 g/dL (12.0-15.0); Lymphocyte # 0.93 X10^3/ul (0.83-4.51); Lymphocyte % 4.2 % (19-41); Mean Corp Hgb Conc 33.3 g/dL (32-36); Mean Corpuscular Hgb 32.6 pg (27.0-32.0); Mean Corpuscular Volume 98.1 fL (81-99); Mean Platelet Vol. 11.2 fl (6.2-12.0); Monocyte# 0.57 X10^3/uL; Monocyte% 2.6 % (0-10); NRBC Flagged by Analyzer 0 % (0-5); Neutrophil # 20.26 X10^3/uL (2.7-7.7); POSITIVE DIFFERENTIAL YES; Platelet Count 237 K/mm3 (150-450); RBC Distribution Width CV 15.3 % (11.6-14.6); RBC Distribution Width SD 54.4 fl (35.1-43.9); Red Blood Count 4.23 M/mm3 (4.2-5.4)
[2024-07-03] MEDS: Ondansetron 4 MG/2 ML Vial IV (14:34)
[2024-07-03] MEDS: 0.9% Normal Saline (1000mL) 1,000 ML 999 ML IV (14:34)
[2024-07-03] MEDS: HYDROmorphone 1 MG/ML Syringe IV ×2 (14:34→17:48)
[2024-07-03 14:49] LABS: AST(SGOT) 33 U/L (<=31); Alanine Aminotransfer ALT/SGPT 33 U/L (<=34); Albumin, Serum 4.2 g/dL (3.5-5.0); Alkaline Phosphatase 111 U/L (35-104); Anion Gap 10 (5-15); BUN 14 mg/dL (4-19); BUN/Creat Ratio 17.1 RATIO (10-20); Bilirubin, Direct 0.27 mg/dL (0.00-0.30); Calcium,Total 9.3 mg/dL (7.6-11.0); Carbon Dioxide 21.4 mmol/L (21.0-32.0); Chloride 106 mmol/L (98-108); Creatinine, Serum 0.81 mg/dL (0.70-1.20); EST Glomerular Filtration Rate 91 (>60); Estimated Creatinine Clearance 76.53 ml/min (50-250); Globulin 2.3 g/dL (2.2-4.2); Glucose 104 mg/dL (70-99); Lipase 25 U/L (13-75); Potassium 4.4 mmol/L (3.3-5.1); Protein, Total 6.5 g/dL (5.9-8.4); Sodium Level 138 mmol/L (133-145); Total Bilirubin 0.64 mg/dL (0.00-1.30)
[2024-07-03 14:52] LABS: Differential Indicated SCAN CRITERIA MET
[2024-07-03 15:10] LABS: Internal QC Validated? YES +Cl - CLEAR BKGD; Pregnancy, Serum, hCG Quali. NEGATIVE Negative
--- NOTE | 2024-07-03 15:10 | CT_ITS ---
PROCEDURE: ABDOMEN/PELVIS W IV CONT ONLY 07/03/2024 REASON FOR EXAM: ABDOMINAL PAIN Patient's history of cervical and endometrial carcinoma and breast cancer. Status post appendectomy, bilateral oophorectomy and cholecystectomy. TECHNIQUE: Abdomen and pelvis CT with intravenous contrast. Coronal and Sagittal reconstruction series were provided. PATIENT PREPARATION: Per protocol ORAL CONTRAST TYPE: None. CONTRAST: Isovue 370 VOLUME: 75 cc mL Gauge IV One or more dose reduction techniques were used (e.g., Automated exposure control, adjustment of the mA and/or kV according to patient size, use of iterative reconstruction technique. RADIATION DOSE SUMMARY: CTDlvol: 27 mGy DLP: 413.89 mGycm COMPARISON: Comparison is made with prior study dated July 01, 2024. FINDINGS: Lung bases: Mild dependent atelectasis Liver: Diffuse fatty infiltration. Hepatomegaly. Gallbladder: Surgically absent. Spleen: Normal size. Pancreas: Normal size without evidence of mass surrounding inflammation or ductal dilation. Adrenals: Unremarkable Kidneys: Normal renal sizes. No hydronephrosis. Bladder: Unremarkable Reproductive Organs: Findings suggestive of enlarged fibroid uterus. Multiple venous structures are seen in the pelvis more prominent on the left side suggestive of pelvic congestion syndrome. Small amount of free fluid is seen in the cul-de-sac. Bowel: No bowel obstruction. Appendix: Status post appendectomy. Lymph nodes: Unremarkable. Vasculature: Mild diffuse atherosclerotic calcifications are noted. Peritoneum / Retroperitoneum: Unremarkable Bones: Degenerative changes of the spine. CT/Abdomen/Pelvis W IV Cont ONLY IMPRESSION: Hepatomegaly and fatty infiltration of the liver. Small amount of free fluid in the pelvis. Findings suggestive of a pelvic congestion syndrome. Reading Location: [facility]-
[2024-07-03 15:30] VITALS: BP 147/87; PULSE 78; RESP 19; O2SAT 98
[2024-07-03 15:37] LABS: Mucous, Urine 0 SEEN /hpf (<or=2+)
[2024-07-03 15:48] LABS: Color, Urine Yellow (Yellow); Glucose, Dipstick Normal (Normal); Ketone-Dipstick Negative (Negative); Leukocyte Esterase-Dipstick Negative /ul (Negative); Nitrite-Dipstick Negative (Negative); Occult Blood-Urine 25 /ul (Negative); Protein-Dipstick 30 mg/dl (Negative); Urine Bilirubin Dipstick Negative (Negative); Urine Clarity Sl. Cloudy (Clear); Urine Urobilinogen Normal (Normal); Urine pH 6.5 (5.0 - 8.0)
[2024-07-03 16:22] LABS: Red Blood Cells-Urine 0-5 SEEN /hpf (0-5); Squamous Epithelial Cells - UA 10-25 SEEN /hpf (5-10)
[2024-07-03 16:23] LABS: Bacteria 1+ /hpf (None Seen); White Blood Cells 0-5 SEEN /hpf (0-5)
[2024-07-03 16:58] VITALS: BP 149/78; PULSE 69; RESP 19; O2SAT 99
[2024-07-03] MEDS: Ketorolac 30 MG/ML Syringe IV (17:48)
[2024-07-03 17:55] VITALS: BP 142/93; PULSE 68; RESP 19; TEMP 36.8; O2SAT 99
== END 2024-07-03 18:18 | disposition home or self-care (01) ==
PROVIDERS: Emergency Provider Emergency Medicine; PCP Family Medicine; Visit Provider Emergency Medicine
DX: R10.9 Unspecified abdominal pain (principal); F17.210 Nicotine dependence, cigarettes, uncomplicated; K21.9 Gastro-esophageal reflux disease without esophagitis
CPT/HCPCS: 74177; 80048; 80076; 81001; 83690; 84703; 85025; 96361; 96374; 96375; 96376; 99284; Q9967; A4216; J2405

== ENCOUNTER 2024-07-12 09:45 | Day surgery (SDC) | payer BC, SELFPAY ==
--- NOTE | 2024-07-10 18:49 | PAT.ANESEVAL ---
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 When Was Last Pacemaker Check QUESTION #4 FULL TEXT: You/Your Family Experience fever (hyperthermia) with Anesthesia Last Oral Intake Last Oral intake: Last Oral Intake NPO since Meds taken in AM with sips of water? 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 Female Yes 07/10/24 11:58 HX of Motion Sickness No 07/10/24 11:58 HX of N/V After Surgery No 07/10/24 11:58 Non-Smoker No 07/10/24 11:58 Duration of Surgery greater No 07/10/24 11:58 than 60 minutes Number of Risk Factors 1 07/10/24 11:58 PONV Score Low Risk 07/10/24 11:58 Height & Weight Height & Weight: Anesthesia: Height & Weight Height 5 ft 4 in 07/10/24 07:16 Respiratory Assessment Respiratory Assessment - mold cutting machine operator: Respiratory Tract Infection Hx - mold cutting machine operator Hx Respiratory Tract Infection No 07/10/24 11:58 STOP Sleep Apnea STOP Sleep Apnea - mold cutting machine operator: STOP Sleep Apnea - mold cutting machine operator Hx Hypertension No 07/10/24 11:58 Hx Sleep Apnea No 07/10/24 11:58 CPAP BIPAP Do you snore loudly (louder Yes 07/10/24 11:58 than talking or can be heard Do you often feel tired/ Yes 07/10/24 11:58 fatigued/ sleepy during daytime? Has anyone observed you stop No 07/10/24 11:58 breathing during sleep? STOP Results Positive 07/10/24 11:58 QUESTION #5 FULL TEXT : Do you snore loudly (louder than talking or can be heard through closed doors)? 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 Specify any problems Hx of Preganancy in last 3 No 07/10/24 11:58 Months Nurse Filling Out Transfusion DSCHRIBER 07/10/24 11:58 & Questions: Date: 07/10/24 07/10/24 11:58 Time: 12:00 07/10/24 11:58 Patient unable to answer at this time (ie. 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 Ovarian cancer GERD (gastroesophageal reflux disease) Insomnia Anxiety Collapsed lung History of blood clots Asthma Breast cancer Pacemaker ICD (implantable cardioverter-defibrillator) in place Hypertrophic cardiomyopathy Home Medications ?Medication ?Instructions ?Recorded ?Last Taken ?Type alprazolam 0.5 mg tablet 0.5 mg PO BID 11/13/21 Unknown History zolpidem 10 mg tablet 10 mg PO QHS 11/13/21 Unknown History albuterol sulfate 90 mcg/actuation 1 inh inhalation PRN 07/26/23 Unknown History aerosol inhaler oxycodone-acetaminophen 5 mg-325 1 tab PO Q6H PRN pain 3 days #12 07/01/24 Unknown Rx mg tablet (Endocet) tabs dicyclomine 20 mg tablet 20 mg PO TID PRN abdominal pain 07/03/24 Unknown Rx #30 tabs ketorolac 10 mg tablet 10 mg PO Q8H PRN pain #15 tabs 07/03/24 Unknown Rx pantoprazole 20 mg tablet,delayed 20 mg PO BID 07/10/24 Unknown History release sucralfate 1 gram tablet (Carafate) 1 g PO DAILY 07/10/24 Unknown History Allergy/AdvReac Type Severity Reaction Status Date / Time morphine Allergy Mild Hives Verified 07/10/24 13:33 codeine Allergy Hives Verified 07/10/24 13:33 erythromycin base Allergy PT UNSURE Verified 07/10/24 13:33 OF REACTION Fish Containing Products Allergy Other Verified 07/10/24 13:33 levofloxacin Allergy PT UNSURE Verified 07/10/24 13:33 OF REACTION lorazepam (From Ativan) Allergy Other Verified 07/10/24 13:33 shellfish derived Allergy Other Verified 07/10/24 13:33 tramadol Allergy Hives Verified 07/10/24 13:33 trimethobenzamide (From Allergy Other Verified 07/10/24 13:33 Tigan) gabapentin (From Neurontin) AdvReac Severe Anaphylaxis Verified 07/10/24 13:33 acetaminophen (From Vicodin) AdvReac Other Verified 07/10/24 13:33 hydrocodone (From Vicodin) AdvReac Other Verified 07/10/24 13:33 metoclopramide (From Reglan) AdvReac Other Verified 07/10/24 13:33 Family History Father Heart disease Idiopathic hypertrophic subaortic stenosis, hypertrophic obstructive cardiomyopathy, congestive heart failure Mother Breast cancer DVT (deep venous thrombosis) Sister Hypertrophic obstructive cardiomyopathy heart transplant at age 34 Cancer Brain, breast, and colon Grandfather Heart disease at age 45 Grandmother CVA (cerebral vascular accident) age 43 Surgical History History of cardiac catheterization History of oophorectomy History of cervical polypectomy History of colonoscopy History of tubal ligation History of mastectomy History of cholecystectomy Hx of appendectomy Social History household members: family current occupational status: employed Smoking Status: Current every day smoker tobacco type: cigarettes how long ago did patient quit smokin months ago alcohol intake: former substance use type: does not use caffeine: Yes Audit: Pertinent Findings Pertinent Findings EKG Perinent findings: July 10, 2024. Sinus rhythm. Left atrial enlargement. Prominent R in V1 and left axis. Possible anterior fascicular block. Anterior infarct age undetermined. Echo (EF%) pertinent findings: September 13, 2023. Ejection fraction 50%. PA systolic pressure is 58 mmHg. No aortic stenosis is noted. Consult pertinent findings: July 10, 2024. Steffen DORAN. 1. Hypertrophic cardiomyopathy?acute-patient has a significant family history of her hypertrophic cardiomyopathy. Patient has an ICD in place. Will get echo to evaluate stability of cardiomyopathy. 2. [id number] appropriately 3. Preop clearance-patient is cleared from a cardiac standpoint to undergo EGD and colonoscopy. Recommendation Anesthesia Recommendation Anesthesia recommendation: OPTIMIZED for anesthesia
--- NOTE | 2024-07-11 08:37 | PAT.ANESEVAL ---
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 When Was Last Pacemaker Check QUESTION #4 FULL TEXT: You/Your Family Experience fever (hyperthermia) with Anesthesia Last Oral Intake Last Oral intake: Last Oral Intake NPO since Meds taken in AM with sips of water? 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 Has anyone observed you stop No 07/10/24 11:58 breathing during sleep? STOP Results Positive 07/10/24 11:58 QUESTION #5 FULL TEXT : Do you snore loudly (louder than talking or can be heard through closed doors)? 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 Specify any problems Hx of Preganancy in last 3 No 07/10/24 11:58 Months Nurse Filling Out Transfusion DSCHRIBER 07/10/24 11:58 & Questions: Date: 07/10/24 07/10/24 11:58 Time: 12:00 07/10/24 11:58 Patient unable to answer at this time (ie. 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 Ovarian cancer GERD (gastroesophageal reflux disease) Insomnia Anxiety Collapsed lung History of blood clots Asthma Breast cancer Pacemaker ICD (implantable cardioverter-defibrillator) in place Hypertrophic cardiomyopathy Home Medications ?Medication ?Instructions ?Recorded ?Last Taken ?Type alprazolam 0.5 mg tablet 0.5 mg PO BID 11/13/21 Unknown History zolpidem 10 mg tablet 10 mg PO QHS 11/13/21 Unknown History albuterol sulfate 90 mcg/actuation 1 inh inhalation PRN 07/26/23 Unknown History aerosol inhaler oxycodone-acetaminophen 5 mg-325 1 tab PO Q6H PRN pain 3 days #12 07/01/24 Unknown Rx mg tablet (Endocet) tabs dicyclomine 20 mg tablet 20 mg PO TID PRN abdominal pain 07/03/24 Unknown Rx #30 tabs ketorolac 10 mg tablet 10 mg PO Q8H PRN pain #15 tabs 07/03/24 Unknown Rx pantoprazole 20 mg tablet,delayed 20 mg PO BID 07/10/24 Unknown History release sucralfate 1 gram tablet (Carafate) 1 g PO DAILY 07/10/24 Unknown History Allergy/AdvReac Type Severity Reaction Status Date / Time morphine Allergy Mild Hives Verified 07/10/24 13:33 codeine Allergy Hives Verified 07/10/24 13:33 erythromycin base Allergy PT UNSURE Verified 07/10/24 13:33 OF REACTION Fish Containing Products Allergy Other Verified 07/10/24 13:33 levofloxacin Allergy PT UNSURE Verified 07/10/24 13:33 OF REACTION lorazepam (From Ativan) Allergy Other Verified 07/10/24 13:33 shellfish derived Allergy Other Verified 07/10/24 13:33 tramadol Allergy Hives Verified 07/10/24 13:33 trimethobenzamide (From Allergy Other Verified 07/10/24 13:33 Tigan) gabapentin (From Neurontin) AdvReac Severe Anaphylaxis Verified 07/10/24 13:33 acetaminophen (From Vicodin) AdvReac Other Verified 07/10/24 13:33 hydrocodone (From Vicodin) AdvReac Other Verified 07/10/24 13:33 metoclopramide (From Reglan) AdvReac Other Verified 07/10/24 13:33 Family History Father Heart disease Idiopathic hypertrophic subaortic stenosis, hypertrophic obstructive cardiomyopathy, congestive heart failure Mother Breast cancer DVT (deep venous thrombosis) Sister Hypertrophic obstructive cardiomyopathy heart transplant at age 34 Cancer Brain, breast, and colon Grandfather Heart disease at age 45 Grandmother CVA (cerebral vascular accident) age 43 Surgical History History of cardiac catheterization History of oophorectomy History of cervical polypectomy History of colonoscopy History of tubal ligation History of mastectomy History of cholecystectomy Hx of appendectomy Social History household members: family current occupational status: employed Smoking Status: Current every day smoker tobacco type: cigarettes how long ago did patient quit smokin months ago alcohol intake: former substance use type: does not use caffeine: Yes Audit: Pertinent Findings HISTORY of Pertinent Findings History of Pertinent Findings: EKG Pertinent Findings EKG Perinent findings July 10, 2024. Sinus 07/10/24 18:55 rhythm. Left atrial enlargement. Prominent R in V1 and left axis. Possible anterior fascicular block. Anterior infarct age undetermined. Echo Pertinent Findings Echo (EF%) pertinent findings September 13, 2023. Ejection 07/10/24 18:53 fraction 50%. PA systolic pressure is 58 mmHg. No aortic stenosis is noted. Consult Pertinent Findings Consult pertinent findings July 10, 2024. Steffen 07/10/24 18:57 PA-C. 1. Hypertrophic cardiomyopathy?acute-patient has a significant family history of her hypertrophic cardiomyopathy. Patient has an ICD in place. Will get echo to evaluate stability of cardiomyopathy. 2. FEG-knguk-nhrftlaqani appropriately 3. Preop clearance-patient is cleared from a cardiac standpoint to undergo EGD and colonoscopy. Pertinent Findings Additional pertinent findings: WBC 22,000. 07/03/2024 lab. Please send note is to surgeon. This was an acute elevation since of 07/01/2024 lab draw. At that time it was 12.9. Recommendation Anesthesia Recommendation Anesthesia recommendation: F/U recommended
[2024-07-12] VITALS (8 sets, daily range): BP systolic 92–127; BP diastolic 59–88; PULSE 60–72; RESP 16; TEMP 36.3–36.4; O2SAT 94–99; BMI 21.5
--- NOTE | 2024-07-12 10:45 | EGD_PTH ---
PATIENT: SANDRA GARDNER LOC: [facility] U#:[id number] AGE/SX: 43/F ROOM: RE07/12/[address]: Dr. Quang Myles DO : 1980 BED: DIS: 07/12/2024 SPEC #: [id number] RECD: 07/13/24 10:07 STATUS: AGUSTINA BENITO #: [id number] NASH: 07/12/24 10:[address]: Quang Myles DEPT: SURGICAL PATHOLOGY RECD BY: Nick Mcfarlane ENTERED: 07/13/24 10:39 SP TYPE: EGD BIOPSY NOELLE DR: Dr. Dex Wilkinson MD Tissues: A - Duodenum, NOS B - Gastric mucous membrane C - Esophagus, NOS D - Ileum, NOS E - COLON BIOPSY F - Sigmoid colon biopsy Procedures: Surgery Specimen Level IV HEADER OPERATION: Colonoscopy, EGD with biopsy, polyp PRE-OP DIAGNOSIS: Abdominal pain, GERD, abnormal CT TISSUE SUBMITTED: A- Duodenum biopsy, B- Gastric body biopsy, C-Distal esophagus biopsy, D- Terminal ileum biopsy, E- Random colon biopsy, F- Sigmoid polyp MICROSCOPIC DIAGNOSIS A. Small bowel, duodenum, biopsy: * Normal villous architecture with Jered gland hyperplasia. B. Stomach, body, biopsy: * Oxyntic mucosa with mild chronic inflammation. * Negative for Helicobacter-like organisms (H&E). C. Esophagus, distal, biopsy: * Columnar mucosa negative for goblet cell metaplasia. * No squamous mucosa observed. D. Small bowel, terminal ileum, biopsy: * Normal villous architecture with no specific pathologic change. E. Colon, random, biopsy: * Focal active colitis - see note. * Note: Focal mild acute inflammation is noted without features of chronicity.? This is a nonspecific finding which may result from bowel prep artifact, mild infection, medication injury (eg: NSAIDs) and ischemia.? Recommend correlation with clinical and endoscopic findings * F. Sigmoid colon, polyp, biopsy: * Tubular adenoma. MICROSCOPIC DESCRIPTION Slides are reviewed. GROSS DESCRIPTION A. Received in formalin in a container labeled with the patient's name, date of , and duodenum biopsy are 2 maharaj-pink fragments of mucosal tissue each measuring 0.4 x 0.3 x 0.3 cm. Submitted in toto in A1. B. Received in formalin in a container labeled with the patient's name, date of , and gastric body biopsy are 2 maharaj-pink fragments of mucosal tissue measuring 0.3 x 0.2 x 0.2 cm and 0.7 x 0.2 x 0.2 cm. Submitted in toto in B1. C. Received in formalin in a container labeled with the patient's name, date of , and distal esophagus biopsy is a 0.5 x 0.3 x 0.3 cm fragment of maharaj-pink mucosal tissue. Submitted in toto in C1. D. Received in formalin in a container labeled with the patient's name, date of , and terminal ileum biopsy are multiple maharaj-pink fragments of mucosal tissue measuring 1.2 x 0.5 x 0.3 cm in aggregate. Submitted in toto in D1. E. Received in formalin in a container labeled with the patient's name, date of , and random colon biopsy are multiple maharaj-pink fragments of mucosal tissue measuring 1.0 x 0.8 x 0.2 cm in aggregate. Submitted in toto in E1. F. Received in formalin in a container labeled with the patient's name, date of , and sigmoid polyp is a 0.4 x 0.3 x 0.3 cm maharaj-pink and polypoid piece of mucosal tissue. No distinct margin is identified. Submitted in toto in F1. [facility] 07-13-2024 CPT:08859c4
--- NOTE | 2024-07-12 10:54 | PRE.ANES_ITS ---
ASA Classification* ASA Classification ASA Classification: 3 Assessment & Plan Anesthesia* Anesthesia Assessment Anesthesia Assessment: Discussed sedation and/or anesthesia options, risks, benefits, and alternatives with patient/parents/legal guardian/POA. Questions invited. The patient/parents/legal guardian/POA seems to understand and agrees to proceed with anesthesia plan. Reviewed the physical assessment, medical history, allergy history and patient home medications list prior to surgery/procedure/anesthetic and documented any changes. Performed airway and anesthesia risk assessments. Anesthesia Type Anesthesia Type: MAC History Source History Obtained from:: Patient and Chart Anesthesia Focused Assessment* Temperature: 97.6 F Pulse Rate: 72 Blood Pressure: 127/88 Respiratory Rate: 16 Pulse Ox: 99 Oxygen Delivery Method: Room Air Airway Assessment Mouth opens: >3 cm Mallampati Score: II Teeth Condition: Chipped/Broken (Multiple chipped teeth. All are tight.) Neck Range of motion (ROM): Full ROM Focused Labs Anesthesia Preop lab: CBC WBC 22.0 K/mm3 (4.4-11.0) H 07/03/24 13:42 5 RBC 4.23 M/mm3 (4.2-5.4) 07/03/24 13:42 07/03/24 Hgb 13.8 g/dL (12.0-15.0) 07/03/24 13:42 07/03/24 Hct 41.5 % (37-47) 07/03/24 13:42 07/03/24 Plt Count 237 K/mm3 (150-450) 07/03/24 13:42 07/03/24 CHEMISTRY Potassium 4.4 mmol/L (3.3-5.1) 07/03/24 13:42 07/03/24 Sodium 138 mmol/L (133-145) 07/03/24 13:42 07/03/24 Magnesium 2.0 mg/dL (1.6-2.6) 12/25/22 22:07 12/25/22 BUN 14 mg/dL (4-19) 07/03/24 13:42 07/03/24 Creatinine 0.81 mg/dL (0.70-1.20) 07/03/24 13:42 07/03/24 Glucose 104 mg/dL (70-99) H 07/03/24 13:42 07/03/24 COAG PT 13.7 SECONDS (11.7-14.9) 08/16/23 12:46 Pre-Assessment Diagnosis/Proposed Procedure Planned Operative Procedure(s): EGD/CSCOPE Anesthesia History 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 When Was Last Pacemaker Check QUESTION #4 FULL TEXT: You/Your Family Experience fever (hyperthermia) with Anesthesia Last Oral Intake Last Oral intake: Last Oral Intake NPO since 06:00 07/12/24 10:17 Meds taken in AM with sips of No 07/12/24 10:17 water? 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 Female Yes 07/10/24 11:58 HX of Motion Sickness No 07/10/24 11:58 HX of N/V After Surgery No 07/10/24 11:58 Non-Smoker No 07/10/24 11:58 Duration of Surgery greater No 07/10/24 11:58 than 60 minutes Number of Risk Factors 1 07/10/24 11:58 PONV Score Low Risk 07/10/24 11:58 Height & Weight Height & Weight: Anesthesia: Height & Weight Height 5 ft 4 in 07/12/24 10:17 Weight: 57 kg 07/12/24 10:17 Body Mass Index (BMI) 21.5 07/12/24 10:17 Respiratory Assessment Respiratory Assessment - fermenter operator: Respiratory Tract Infection Hx - fermenter operator Hx Respiratory Tract Infection No 07/10/24 11:58 STOP Sleep Apnea STOP Sleep Apnea - fermenter operator: STOP Sleep Apnea - fermenter operator Hx Hypertension No 07/10/24 11:58 Hx Sleep Apnea No 07/10/24 11:58 CPAP BIPAP Do you snore loudly (louder Yes 07/10/24 11:58 than talking or can be heard Do you often feel tired/ Yes 07/10/24 11:58 fatigued/ sleepy during daytime? Has anyone observed you stop No 07/10/24 11:58 breathing during sleep? STOP Results Positive 07/10/24 11:58 QUESTION #5 FULL TEXT : Do you snore loudly (louder than talking or can be heard through closed doors)? 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 Specify any problems Hx of Preganancy in last 3 No 07/10/24 11:58 Months Nurse Filling Out Transfusion DSCHRIBER 07/10/24 11:58 & Questions: Date: 07/10/24 07/10/24 11:58 Time: 12:00 07/10/24 11:58 Patient unable to answer at this time (ie. confused, unrespo /Reproduction History /Reproductive History - fermenter operator: /Reproductive Hx- fermenter operator Hx Now No 07/10/24 11:58 Gestational Age (in weeks): EDC: Hx Hx Para Hx Section SAB No 07/10/24 11:58 Active Medications Active Medications: Current Medications Generic Name Dose Route Start Last Admin Trade Name Freq PRN Reason Stop Dose Admin Lactated Ringer's 1,000 mls @ 15 mls/hr 07/12/24 10:00 IV .Q48H PIA PFSH Medical History Cancer History of steroid therapy Easy bruising Migraine headache History of hiatal hernia History of ulceration History of IBS Abdominal bloating Stomach pain Nausea & vomiting Shortness of breath on exertion Smoker History of echocardiogram Chest pain Pulmonary embolism Endometrial cancer 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 Ovarian cancer GERD (gastroesophageal reflux disease) Insomnia Anxiety Collapsed lung History of blood clots Asthma Breast cancer Pacemaker ICD (implantable cardioverter-defibrillator) in place Hypertrophic cardiomyopathy Home Medications ?Medication ?Instructions ?Recorded ?Last Taken ?Type alprazolam 0.5 mg tablet 0.5 mg PO BID 11/13/2107/11 History zolpidem 10 mg tablet 10 mg PO QHS 11/13/21 History albuterol sulfate 90 mcg/actuation 1 inh inhalation VA N 07/26/23 Unknown History aerosol inhaler oxycodone-acetaminophen 5 mg-325 1 tab PO Q6H PRN pain 3 days #12 07/01/24 Unknown Rx mg tablet (Endocet) tabs dicyclomine 20 mg tablet 20 mg PO TID PRN abdominal p ain 07/03/24 Unknown Rx #30 tabs ketorolac 10 mg tablet 10 mg PO Q8H PRN pain #15 ta bs 07/03/24 Unknown Rx pantoprazole 20 mg tablet,delayed 20 mg PO BID 5 07/11/24 History release sucralfate 1 gram tablet (Carafate) 1 g PO DAILY 07/1007/11/24 History Allergy/AdvReac Type Severity Reaction Status Date / Time morphine Allergy Mild Hives Verified 07/12/24 10:16 codeine Allergy Hives Verified 07/12/24 10:16 erythromycin base Allergy PT UNSURE Verified 07/12/24 10:16 OF REACTION Fish Containing Products Allergy Other Verified 07/12/24 10:16 levofloxacin Allergy PT UNSURE Verified 07/12/24 10:16 OF REACTION lorazepam (From Ativan) Allergy Other Verified 07/12/24 10:16 shellfish derived Allergy Other Verified 07/12/24 10:16 tramadol Allergy Hives Verified 07/12/24 10:16 trimethobenzamide (From Allergy Other Verified 07/12/24 10:16 Tigan) gabapentin (From Neurontin) AdvReac Severe Anaphylaxis Verified 07/12/24 10:16 acetaminophen (From Vicodin) AdvReac Other Verified 07/12/24 10:16 hydrocodone (From Vicodin) AdvReac Other Verified 07/12/24 10:16 metoclopramide (From Reglan) AdvReac Other Verified 07/12/24 10:16 Family History Father Heart disease Idiopathic hypertrophic subaortic stenosis, hypertrophic obstructive cardiomyopathy, congestive heart failure Mother Breast cancer DVT (deep venous thrombosis) Sister Hypertrophic obstructive cardiomyopathy heart transplant at age 34 Cancer Brain, breast, and colon Grandfather Heart disease at age 45 Grandmother CVA (cerebral vascular accident) age 43 Surgical History History of cardiac catheterization History of oophorectomy History of cervical polypectomy History of colonoscopy History of tubal ligation History of mastectomy History of cholecystectomy Hx of appendectomy Social History household members: family current occupational status: employed Smoking Status: Current every day smoker tobacco type: cigarettes how long ago did patient quit smokin months ago alcohol intake: former substance use type: does not use caffeine: Yes Review of Systems (Anesthesia) ROS Narrative System reviewed and no additional complaints, except as documented.
--- NOTE | 2024-07-12 11:11 | PCM.HP.STD ---
HPI - General General Date of Admission: 07/12/24 Date of Service: 07/12/24 Chief Complaint: Abnormal CT scan HPI Narrative SANDRA GARDNER, is a 43 F who presented to [facility] 07.03.24 with upper abd pain with associated vomiting. Past surgical hx of cholecystectomy, appendectomy, oophorectomy and tubal ligation. CT abd/pelvis 07.01.24; Subtle wall thickening of the distal and terminal ileum with hyperenhancement of the wall, suspicious for inflammatory bowel disease, please correlate clinically. Hepatomegaly.Suspected pelvic congestion. Small pelvic free fluid. Small bilateral pleural effusion with atelectasis. Pt here today for continued abdominal pain since her ED visit. Pain is diffuse around her entire abd. She has not had a bm since Tuesday. She has nausea and vomiting 4x per day. She feels she may be vomiting up fecal matter as it looks like stool and has a foul taste and odor. She has never had pain like this before. Pt has always struggled with constipation and diarrhea. She had a colonoscopy in Dec 2023 which she reports was normal. 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 Hypertrophic cardiomyopathy Home Medications ?Medication ?Instructions ?Recorded ?Last Taken ?Type alprazolam 0.5 mg tablet 0.5 mg PO BID 11/13/21 07/11/24 History zolpidem 10 mg tablet 10 mg PO QHS 11/13/21 07/11/24 History albuterol sulfate 90 mcg/actuation 1 inh inhalation PRN 07/26/23 Unknown History aerosol inhaler oxycodone-acetaminophen 5 mg-325 1 tab PO Q6H PRN pain 3 days #12 07/01/24 Unknown Rx mg tablet (Endocet) tabs dicyclomine 20 mg tablet 20 mg PO TID PRN abdominal pain 07/03/24 Unknown Rx #30 tabs ketorolac 10 mg tablet 10 mg PO Q8H PRN pain #15 tabs 07/03/24 Unknown Rx pantoprazole 20 mg tablet,delayed 20 mg PO BID 07/10/24 07/11/24 History release sucralfate 1 gram tablet (Carafate) 1 g PO DAILY 07/10/24 07/11/24 History Allergy/AdvReac Type Severity Reaction Status Date / Time morphine Allergy Mild Hives Verified 07/12/24 10:16 codeine Allergy Hives Verified 07/12/24 10:16 erythromycin base Allergy PT UNSURE Verified 07/12/24 10:16 OF REACTION Fish Containing Products Allergy Other Verified 07/12/24 10:16 levofloxacin Allergy PT UNSURE Verified 07/12/24 10:16 OF REACTION lorazepam (From Ativan) Allergy Other Verified 07/12/24 10:16 shellfish derived Allergy Other Verified 07/12/24 10:16 tramadol Allergy Hives Verified 07/12/24 10:16 trimethobenzamide (From Allergy Other Verified 07/12/24 10:16 Tigan) gabapentin (From Neurontin) AdvReac Severe Anaphylaxis Verified 07/12/24 10:16 acetaminophen (From Vicodin) AdvReac Other Verified 07/12/24 10:16 hydrocodone (From Vicodin) AdvReac Other Verified 07/12/24 10:16 metoclopramide (From Reglan) AdvReac Other Verified 07/12/24 10:16 Family History Father Heart disease Idiopathic hypertrophic subaortic stenosis, hypertrophic obstructive cardiomyopathy, congestive heart failure Mother Breast cancer DVT (deep venous thrombosis) Sister Hypertrophic obstructive cardiomyopathy heart transplant at age 34 Cancer Brain, breast, and colon Grandfather Heart disease at age 45 Grandmother CVA (cerebral vascular accident) age 43 Surgical History History of cardiac catheterization History of oophorectomy History of cervical polypectomy History of colonoscopy History of tubal ligation History of mastectomy History of cholecystectomy Hx of appendectomy Social History household members: family current occupational status: employed Smoking Status: Current every day smoker (Patient smoked today.) tobacco type: cigarettes how long ago did patient quit smokin months ago alcohol intake: former substance use type: does not use caffeine: Yes ROS Constitutional Constitutional: Denies fatigue, fever(s), poor appetite, weight gain or weight loss Gastrointestinal Gastrointestinal: Denies belching, bloating, change in bowel habits, change in stool character, chewing difficulty, coffee ground emesis, constipation, cramping, diarrhea, dyspepsia, dysphagia, early satiety, excessive flatus, fecal incontinence, heartburn, hematemesis, hematochezia, hemorrhoids, loose stools, melena, nausea, odynophagia, rectal bleeding, tenesmus, vomiting or weight changes Vital Signs Vital Signs Vital Signs: 07/12/24 10:17 07/12/24 10:17 07/12/24 11:06 Temperature 97.6 F L 97.6 F L Temperature Source Temporal Pulse Rate 72 72 Respiratory Rate 16 16 Respiratory Pattern Normal Blood Pressure 127/88 H 127/88 H Blood Pressure Mean 101 Blood Pressure Source Monitor Blood Pressure Position Semi-Fowlers Blood Pressure Location Right Arm Pulse Ox 99 99 Oxygen Delivery Method Room Air Room Air Weight Weight: 125 lb 10.616 oz Body Mass Index (BMI) 21.5 Physical Exam Const alert, oriented x3, no apparent distress and healthy appearing General Appearance: cooperative GI normal to inspection, nondistended, normoactive bowel sounds, soft to palpation, non-tender and non-distended Percussion: normal to percussion Rectal Exam: deferred Assessment & Plan Assessment/Plan (1) Abdominal pain: (2) GERD (gastroesophageal reflux disease): PLAN: Assessment and Plan Assessment and Plan (1) Abdominal pain: Status: Acute Plan: This is a 43 yo female pt here today for evaluation of abdominal pain x3 days. Pt presented to the ED 07.01.24 with complaints of abd pain and underwent CT which showed thickening in the colon concerning for IBD. Pt pain has continued to increase since the ED. She endorses constipation, diffuse abd pain, nausea and vomiting. She will undergo EGD and colonoscopy for assessment of her lower and upper GI tract. Pt was scheduled for this today. I will also order stool testing to rule out infection or inflammation in her colon. On exam, she was tender diffusely and in the epigastric region. I advised that if her pain becomes unmanageable then she should present back to the ED as I am un able to control her acute pain in the outpatient setting. -Stool testing -Colonoscopy -EGD
--- NOTE | 2024-07-12 12:10 | PCM.POST.ANE ---
Anesthesia: Postop Eval I Current Vital Signs Temperature: 97.5 F Pulse Rate: 64 Blood Pressure: 102/59 Respiratory Rate: 16 Pulse Ox: 94 Oxygen Delivery Method: Room Air Assessment Airway patent: Yes Spontaneous unlabored respirations: Yes Mental status: Asleep nausea: No Vomiting: No Anesthesia Complication: No Fluid Hydration Crystalloid volume administer (ml): 800 Total IV fluid infused: 800 Progress Note Anesthesia document: Postop Eval 1 completed: Yes
--- NOTE | 2024-07-12 12:14 | OP.EGD_ITS ---
Patient Name: Michelle Mitchell Procedure Date: 07/12/2024 11:19 AM Date of : 1980 Age: 43 Procedure: Upper GI endoscopy Indications: Epigastric abdominal pain, Abdominal pain in the right upper quadrant, Abdominal pain in the right lower quadrant Providers: Quang Myles DO Medicines: Monitored Anesthesia Care Patient Profile: This is a 43 year old female. Refer to note in patient chart for documentation of history and physical. Patient has symptoms of acute abdominal cramping, acute abdominal distention, acute right lower quadrant abdominal pain, acute epigastric abdominal pain, acute dyspepsia and acute nausea. Complications: No immediate complications. Procedure: Pre-Anesthesia Assessment: - Prior to the procedure, a History and Physical was performed, and patient medications and allergies were reviewed. The patient is competent. The risks and benefits of the procedure and the sedation options and risks were discussed with the patient. All questions were answered and informed consent was obtained. Patient identification and proposed procedure were verified by the physician in the pre-procedure area. Mental Status Examination: alert and oriented. Airway Examination: normal oropharyngeal airway and neck mobility. Respiratory Examination: clear to auscultation. CV Examination: normal. Prophylactic Antibiotics: The patient does not require prophylactic antibiotics. Prior Anticoagulants: The patient has taken no 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 or antiplatelet agents. ASA Grade Assessment: II - A patient with mild systemic disease. After reviewing the risks and benefits, the patient was deemed in satisfactory condition to undergo the procedure. The anesthesia plan was to use monitored anesthesia care (MAC). Immediately prior to administration of medications, the patient was re-assessed for adequacy to receive sedatives. The heart rate, respiratory rate, oxygen saturations, blood pressure, adequacy of pulmonary ventilation, and response to care were monitored throughout the procedure. The physical status of the patient was re-assessed after the procedure. After obtaining informed consent, the endoscope was passed under direct vision. Throughout the procedure, the patient's blood pressure, pulse, and oxygen saturations were monitored continuously. The Colonoscope was introduced through the mouth, and advanced to the fourth part of the duodenum. Small bowel enteroscopy was deemed necessary. The upper GI endoscopy was accomplished without difficulty. The patient tolerated the procedure well. Scope In: 11:28:39 AM Scope Out: 11:34:49 AM Total Procedure Duration Time 0 hours 6 minutes 10 seconds Findings: The examined esophagus was normal. Diffuse severe inflammation with hemorrhage characterized by erosions, erythema, friability and granularity was found in the entire examined stomach. Biopsies were taken with a cold forceps for histology. Biopsies were taken with a cold forceps for Helicobacter pylori testing. Verification of patient identification for the specimen was done. Estimated blood loss was minimal. Patchy mildly erythematous mucosa without active bleeding and with no stigmata of bleeding was found in the duodenal bulb and in the second portion of the duodenum. Biopsies were taken with a cold forceps for histology. Verification of patient identification for the specimen was done. Estimated blood loss was minimal. Impression: - Normal esophagus. - Acute gastritis with hemorrhage. Biopsied. - Erythematous duodenopathy. Biopsied. Recommendation: - Discharge patient to home (ambulatory). - Resume previous diet. - Continue present medications. - Await pathology results. Procedure Code(s): --- Professional --- 43028, Small intestinal endoscopy, enteroscopy beyond second portion of duodenum, not including ileum; with biopsy, single or multiple CPT copyright 2021 [employer]. All rights reserved. The codes documented in this report are preliminary and upon property staff accountant review may be revised to meet current compliance requirements. Quang Myles DO 07/12/2024 12:14:06 PM This report has been signed electronically. Number of Addenda: 0 Note Initiated On: 07/12/2024 11:19 AM
--- NOTE | 2024-07-12 12:15 | OP.CCLET_ITS ---
07/12/2024 Dex Wilkinson Md Re : Upper GI endoscopy procedure for Michelle Mitchell Dear Jaja This procedure was performed on July. My impressions and recommendations are as follows: Impressions : - Normal esophagus. - Acute gastritis with hemorrhage. Biopsied. - Erythematous duodenopathy. Biopsied. Recommendations : - Discharge patient to home (ambulatory). - Resume previous diet. - Continue present medications. - Await pathology results. My findings are described in the full procedure note, which is enclosed. If I can be of further assistance, please feel free to contact me at . Sincerely, Quang Myles, 07/12/2024 12:14:06 PM This report has been signed electronically.
--- NOTE | 2024-07-12 12:18 | OP.COLON_ITS ---
Patient Name: Michelle Mitchell Procedure Date: 07/12/2024 11:34 AM Date of : 1980 Age: 43 Procedure: Colonoscopy Indications: Abdominal pain in the right lower quadrant, Abnormal CT of the GI tract Providers: Quang Myles DO Patient Profile: This is a 43 year old female. Refer to note in patient chart for documentation of history and physical. Patient has symptoms of acute abdominal cramping, acute abdominal distention, acute right lower quadrant abdominal pain, acute epigastric abdominal pain, acute dyspepsia and acute nausea. Last Colonoscopy: none. The patient's first colonoscopy is today. Complications: No immediate complications. Procedure: Pre-Anesthesia Assessment: - Prior to the procedure, a History and Physical was performed, and patient medications and allergies were reviewed. The patient is competent. The risks and benefits of the procedure and the sedation options and risks were discussed with the patient. All questions were answered and informed consent was obtained. Patient identification and proposed procedure were verified by the physician in the pre-procedure area. Mental Status Examination: alert and oriented. Airway Examination: normal oropharyngeal airway and neck mobility. Respiratory Examination: clear to auscultation. CV Examination: normal. Prophylactic Antibiotics: The patient does not require prophylactic antibiotics. Prior Anticoagulants: The patient has taken no 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 or antiplatelet agents. ASA Grade Assessment: II - A patient with mild systemic disease. After reviewing the risks and benefits, the patient was deemed in satisfactory condition to undergo the procedure. The anesthesia plan was to use monitored anesthesia care (MAC). Immediately prior to administration of medications, the patient was re-assessed for adequacy to receive sedatives. The heart rate, respiratory rate, oxygen saturations, blood pressure, adequacy of pulmonary ventilation, and response to care were monitored throughout the procedure. The physical status of the patient was re-assessed after the procedure. After I obtained informed consent, the scope was passed under direct vision. Throughout the procedure, the patient's blood pressure, pulse, and oxygen saturations were monitored continuously. The Colonoscope was introduced through the anus and advanced to the terminal ileum. The colonoscopy was performed without difficulty. The patient tolerated the procedure well. The quality of the bowel preparation was adequate. The terminal ileum, ileocecal valve, appendiceal orifice, and rectum were photographed. Scope In: 11:36:20 AM Scope Withdrawal Time 0 hours 17 minutes 33 seconds Scope Out: 11:59:01 AM Total Procedure Duration Time 0 hours 22 minutes 41 seconds Findings: The perianal and digital rectal examinations were normal. The rectum, recto-sigmoid colon, sigmoid colon, descending colon, splenic flexure, transverse colon, hepatic flexure and ascending colon appeared normal. Biopsies for histology were taken with a cold forceps from the right colon and left colon for evaluation of microscopic colitis. Verification of patient identification for the specimen was done. Estimated blood loss was minimal. A patchy area of the terminal ileum was congested. Biopsies were taken with a cold forceps for histology. Verification of patient identification for the specimen was done. Estimated blood loss was minimal. The terminal ileum appeared normal. Biopsies were taken with a cold forceps for histology. Verification of patient identification for the specimen was done. Estimated blood loss was minimal. An 8 mm polyp was found in the recto-sigmoid colon. The polyp was sessile. The polyp was removed with a cold snare. Resection and retrieval were complete. Verification of patient identification for the specimen was done. Estimated blood loss: none. Impression: - The rectum, sigmoid colon, descending colon, splenic flexure, transverse colon, hepatic flexure, ascending colon and recto-sigmoid colon are normal. Biopsied. - Congested mucosa in the terminal ileum. Biopsied. - The examined portion of the ileum was normal. Biopsied. Recommendation: - Discharge patient to home. - Resume previous diet. - Continue present medications. - Await pathology results. - Repeat colonoscopy for surveillance based on pathology results. Procedure Code(s): --- Professional --- 61941, Colonoscopy, flexible; with biopsy, single or multiple CPT copyright 2021 [employer]. All rights reserved. The codes documented in this report are preliminary and upon analytical strategist review may be revised to meet current compliance requirements. Quang Myles DO 07/12/2024 12:18:11 PM This report has been signed electronically. Number of Addenda: 0 Note Initiated On: 07/12/2024 11:34 AM
--- NOTE | 2024-07-12 12:19 | OP.CCLET_ITS ---
07/12/2024 Dex Wilkinson Md Re : Colonoscopy procedure for Michelle Mitchell Dear Jaja This procedure was performed on July. My impressions and recommendations are as follows: Impressions : - The rectum, sigmoid colon, descending colon, splenic flexure, transverse colon, hepatic flexure, ascending colon and recto-sigmoid colon are normal. Biopsied. - Congested mucosa in the terminal ileum. Biopsied. - The examined portion of the ileum was normal. Biopsied. Recommendations : - Discharge patient to home. - Resume previous diet. - Continue present medications. - Await pathology results. - Repeat colonoscopy for surveillance based on pathology results. My findings are described in the full procedure note, which is enclosed. If I can be of further assistance, please feel free to contact me at . Sincerely, Quang Myles, 07/12/2024 12:18:11 PM This report has been signed electronically.
--- NOTE | 2024-07-12 15:00 | PCM.POSTANE2 ---
Anesthesia Postop Eval I Sum Postop Eval Completion status Anesthesia document: Postop Eval 1 completed: Yes Anesthesia Postop Eval I Summary Anesthesia Postop Eval I Summary: Anesthesia Postop Eval I: Assessment Summary Airway patent Yes 07/12/24 12:11 [email or web address] Spontaneous unlabored Yes 07/12/24 12:11 [email or web address] respirations Mental status Asleep 07/12/24 12:11 [email or web address] nausea No 07/12/24 12:11 [email or web address] Vomiting No 07/12/24 12:11 [email or web address] Anesthesia Postop Eval I: Fluid Summary Crystalloid volume administer 800 07/12/24 12:11 [email or web address] (ml) Colloids volume administered ( ml) Blood Product volume administered (ml) Total IV fluid infused 800 07/12/24 12:11 [email or web address] Anesthesia Postop Eval I: Summary Notes Anesthesia Complication No 07/12/24 12:11 [email or web address] Anesthesia Complication Comment: Post-operative progress note Anesthesia: Postop Eval II Evaluation Mental status: Awake and Calm Pain Level: 0 nausea: No Vomiting: No Complications Anesthesia Complication: No
== END 2024-07-12 12:51 | disposition home or self-care (01) ==
LOC: EN 09:47 → AC 09:48
PROVIDERS: PCP Family Medicine; Referring Provider Family Medicine; Visit Provider Internal Medicine Gastroenterology
PROC: 0DJD8ZZ Inspection of Lower Intestinal Tract, Via Natural or Artificial Opening Endoscopic (ICD-10-PCS; CPT 45378; principal; 2024-07-12 10:40)
DX: K52.9 Noninfective gastroenteritis and colitis, unspecified (principal); I42.2 Other hypertrophic cardiomyopathy; K29.00 Acute gastritis without bleeding; K59.00 Constipation, unspecified; K21.9 Gastro-esophageal reflux disease without esophagitis; G47.00 Insomnia, unspecified; J98.11 Atelectasis; R16.0 Hepatomegaly, not elsewhere classified; F17.210 Nicotine dependence, cigarettes, uncomplicated; Z79.899 Other long term (current) drug therapy; Z95.810 Presence of automatic (implantable) cardiac defibrillator; Z90.49 Acquired absence of other specified parts of digestive tract
CPT/HCPCS: 45380; 44361; 88305; J2405

== ENCOUNTER 2024-07-20 18:56 | Inpatient (IN) | payer BC, SELFPAY ==
[2024-07-20 18:57] VITALS: BP 146/101; PULSE 88; RESP 22; TEMP 36.4; O2SAT 98; BMI 23.6
--- NOTE | 2024-07-20 19:03 | ED.VIS.DYS ---
HPI History of Present Illness Chief Complaint: Shortness of Breath PFSH PFSH Medical History Cancer History of steroid therapy Easy bruising Migraine headache History of hiatal hernia History of ulceration History of IBS Abdominal bloating Stomach pain Nausea & vomiting Shortness of breath on exertion Smoker History of echocardiogram Chest pain Pulmonary embolism Endometrial cancer Cervical cancer FPC current use of 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 Ovarian cancer GERD (gastroesophageal reflux disease) Insomnia Anxiety Collapsed lung History of blood clots Asthma Breast cancer Pacemaker ICD (implantable cardioverter-defibrillator) in place Hypertrophic cardiomyopathy Home Medications ?Medication ?Instructions ?Recorded ?Last Taken ?Type alprazolam 0.5 mg tablet 0.5 mg PO BID 11/13/21 07/11/24 History zolpidem 10 mg tablet 10 mg PO QHS 11/13/21 07/11/24 History albuterol sulfate 90 mcg/actuation 1 inh inhalation PRN 07/26/23 Unknown History aerosol inhaler oxycodone-acetaminophen 5 mg-325 1 tab PO Q6H PRN pain 3 days #12 07/01/24 Unknown Rx mg tablet (Endocet) tabs dicyclomine 20 mg tablet 20 mg PO TID PRN abdominal pain 07/03/24 Unknown Rx #30 tabs ketorolac 10 mg tablet 10 mg PO Q8H PRN pain #15 tabs 07/03/24 Unknown Rx pantoprazole 20 mg tablet,delayed 20 mg PO BID 07/10/24 07/11/24 History release sucralfate 1 gram tablet (Carafate) 1 g PO DAILY 07/10/24 07/11/24 History Allergy/AdvReac Type Severity Reaction Status Date / Time morphine Allergy Mild Hives Verified 07/20/24 19:03 codeine Allergy Hives Verified 07/20/24 19:03 erythromycin base Allergy PT UNSURE Verified 07/20/24 19:03 OF REACTION Fish Containing Products Allergy Other Verified 07/20/24 19:03 levofloxacin Allergy PT UNSURE Verified 07/20/24 19:03 OF REACTION shellfish derived Allergy Other Verified 07/20/24 19:03 tramadol Allergy Hives Verified 07/20/24 19:03 trimethobenzamide (From Allergy Other Verified 07/20/24 19:03 Tigan) gabapentin (From Neurontin) AdvReac Severe Anaphylaxis Verified 07/20/24 19:03 acetaminophen (From Vicodin) AdvReac Other Verified 07/20/24 19:03 hydrocodone (From Vicodin) AdvReac Other Verified 07/20/24 19:03 metoclopramide (From Reglan) AdvReac Other Verified 07/20/24 19:03 Family History Father Heart disease Idiopathic hypertrophic subaortic stenosis, hypertrophic obstructive cardiomyopathy, congestive heart failure Mother Breast cancer DVT (deep venous thrombosis) Sister Hypertrophic obstructive cardiomyopathy heart transplant at age 34 Cancer Brain, breast, and colon Grandfather Heart disease at age 45 Grandmother CVA (cerebral vascular accident) age 43 Surgical History History of cardiac catheterization History of oophorectomy History of cervical polypectomy History of colonoscopy History of tubal ligation History of mastectomy History of cholecystectomy Hx of appendectomy Social History household members: spouse and family housing: house current occupational status: employed Smoking Status: Current every day smoker tobacco type: cigarettes how long ago did patient quit smokin months ago alcohol intake: former substance use type: does not use caffeine: Yes EXAM Physical Exam Const Vital Signs: 07/20/24 18:57 07/20/24 21:00 07/20/24 21:00 Temperature 97.6 F L 98.3 F Temperature Source Temporal Oral Pulse Rate 88 74 75 Respiratory Rate 22 H 20 H 21 H Blood Pressure 146/101 H 149/90 H 149/90 H Blood Pressure Mean 116 109 109 Pulse Ox 98 98 100 Oxygen Delivery Method Room Air Room Air MDM MDM MDM Narrative Medical decision making narrative: HISTORY OF PRESENT ILLNESS: Chief complaint: Shortness of breath, abdominal pain 43-year-old female history of asthma, GERD, hypertrophic cardiomyopathy, status post ICD presents abdominal pain following a colonoscopy 8 days ago. She states abdominal pain is diffuse located in the epigastrium. It has been going on since . Has been constant. Has not been worse since colonoscopy but she states it is worse this evening and she had an episode of turning blue and almost passing out she presents to the ED. She notes 1 episode of nonbloody nonbilious vomitus prior to arrival that was relieved with Zofran. Denies constipation or diarrhea. Denies melena hematochezia. Denies vaginal bleeding or discharge. Denies trouble urinating. In terms of near syncope patient denies chest pain. Notes shortness of breath. Notes history of PE but denies being on blood thinners. Denies unilateral leg swelling, estrogen use, hemoptysis. Denies malignancy with treatment within the last 6 months. Patient denies cough fever or chills. Patient denies REVIEW OF SYSTEMS: Pertinent positives: Shortness of breath, abdominal pain Pertinent negatives: Fever PHYSICAL EXAM: Nursing triage notes reviewed, Vital signs reviewed Constitutional: please see mdm HENT: MMM Eyes: Pupils equal round and reactive to light, Extraocular muscles intact Neck: No stridor, no JVD, full neck ROM Lungs: Clear to auscultation, No wheezing or rales. No increased work of breathing, no conversational dyspnea, no accessory muscle use, no nasal flaring. No respiratory distress noted Heart: Regular rate and rhythm, No murmurs, No rubs and No gallops, 2+ distal pulses (radial, femoral, posterior tibial) in all extremities Abdomen: Soft, epigastric TTP but no rigidity, rebound or guarding, no obvious peritoneal signs, no palpable pulsatile abdominal masses, no auscultated abdominal bruit : No CVAT Extremities: No edema Neuro: No new focal neurological deficits, cranial nerves II through XII intact, 5/5 strength in all present extremities. Intact sensation to light touch in all present extremities, 2+ reflexes bilateral patella tendons. Skin: No rash or lesions noted MEDICAL DECISION MAKING: Chief Complaint: please see HPI External records reviewed: Reviewed echocardiogram from 2023 shows ejection fraction 50%. Stage I diastolic dysfunction Factors affecting care: none Social determinants of health: none History obtained from others: none Consults: Dr. Torrez (internal medicine) [facility] Narrative: Patient was initially tachypneic otherwise afebrile and nontoxic-appearing. Saturating 98% on room air exam I considered the following differential diagnosis: Perforation, pneumonia, anemia, electrolyte disturbance, ACS, arrhythmia, PE. AAA, small bowel obstruction, abdominal perforation, appendicitis, pancreatitis, hepatobiliary pathology (acute cholecystitis), mesenteric ischemia, pathology (ie nephrolithiasis, pyelonephritis). Initially treated the patient with 1 L IV fluid, Zofran and Toradol for initial pain control. I was comfortable treating with NSAID patient was she has had a tubal ligation and oophorectomy in the past. ALL IMAGES (IF OBTAINED) HAVE BEEN PERSONALLY REVIEWED AND INTERPRETED BY MYSELF. EKG with normal sinus rhythm rate 76, left axis deviation, no stemi, no sign of right heart strain, no S1 Q3 T3 Initial troponin indeterminate, delta Trope rules and per high-sensitivity troponin protocol. D-dimer elevated consistent with increased clot breakdown concerning for VTE given patient reported shortness of breath and near syncope CBC with leukocytosis suggestive of systemic inflammation, no anemia or thrombocytopenia noted BMP without significant Pat abnormalities, no sign of RADHA, LFTs within normal limits BNP elevated consistent with volume overload Lipase is wnl indicating no pancreatic inflammation. CTA of the chest was noted to be partial with evidence of CHF and cardiomegaly CT scan of the abdomen pelvis shows no evidence of acute intra-abdominal The synthesis of the patient's history, physical exam, labs images suggest likely CHF exacerbation given elevated BNP. This is likely causing her high since her troponin values to rule in based on her protocol. Will give diuresis in the form of IV Lasix. Will admit the patient for close KISHA monitoring, cardiology consultation and further evaluation. Discussed with hospitalist Dr. Torrez who accepted the patient's case to the PCU as a full admission. The patient and/or family, caregivers express understanding. The patient and/or family, caregivers agrees with the plan. Shared decision making: I will have a discussion with the patient and or visitors regarding risk/benefits of further testing or admission. They will be made aware of of the risk/benefits inherent in this decision they will be given the opportunity to voice understanding. Total critical care time today provided was at least 0 minutes. This excludes separately billable procedures. Critical care time (if documented) is secondary to the patient having high probability of clinically significant/life threatening deterioration in the patient's condition which required my urgent intervention. Impression: 1. Acute abdominal pain 2. Dyspnea 3. Near syncope 4. CHF exacerbation Dispo: Admit to PCU This note was generated with [employer]ire dictation software. It may contain incorrect words, spelling, and punctuation that were not noted in review of the chart prior to signing. Lab Data Labs: Laboratory Results - last 24 hr 07/20/24 07/20/24 19:26 20:05 WBC 14.3 H RBC 4.11 L Hgb 13.2 Hct 40.2 MCV 97.8 MCH 32.1 H MCHC 32.8 RDW Std Deviation 51.0 H RDW Coeff of Damon 14.1 Plt Count 303 MPV 10.3 Immature Gran % (Auto) 1.000 H Neut % (Auto) 94.7 H Lymph % (Auto) 2.7 L [place] % (Auto) 1.5 Eos % (Auto) 0.0 Baso % (Auto) 0.1 Absolute Neuts (auto) 13.6 H Absolute Lymphs (auto) 0.38 L Nucleated RBC % 0 D-Dimer Quant (PE/DVT) 1.06 H* Sodium 135 Potassium 4.4 Chloride 104 Carbon Dioxide 19.0 L Anion Gap 13 BUN 19 Creatinine 0.88 Estim Creat Clear Calc 70.45 Est GFR (MDRD) Non-Af 83 BUN/Creatinine Ratio 21.8 H Glucose 171 H Calcium 9.3 Total Bilirubin 0.61 Direct Bilirubin 0.29 AST 26 ALT 34 Alkaline Phosphatase 116 H Troponin T High Sens 27 H NT pro BNP II 6468 H Total Protein 6.8 Albumin 4.3 Globulin 2.5 Albumin/Globulin Ratio 1.7 Lipase 32 Urine Color Straw Urine Clarity Clear Urine pH 6.0 Ur Specific Yulan 1.020 Urine Protein 100 H Urine Glucose (UA) Normal Urine Ketones Negative Urine Occult Blood 25 H Urine Nitrite Negative Urine Bilirubin Negative Urine Urobilinogen Normal Ur Leukocyte Esterase Negative Urine RBC 0-5 SEEN Urine WBC 0 SEEN Ur Squamous Epith Cells 5-10 SEEN Urine Bacteria 2+ Hyaline Casts 5-10 SEEN Urine Mucus 1+ Urine Test Negative Radiography Diagnostic Testing: Clinical Impression(s) from Imaging Studies Chest X-Ray 07/20/24 20:06 IMPRESSION: No Acute Findings. Reading Location: [facility] Chest CTA 07/20/24 21:15 IMPRESSION: 1. No evidence of pulmonary embolism. 2. Diffuse interlobular septal thickening, scattered ground-glass opacities and bilateral pleural effusions, concerning for pulmonary edema. 3. Cardiomegaly, with trace pericardial effusion. 4. Contrast reflux into the hepatic veins suggestive of right heart dysfunction. Reading Location: [facility] Discharge Plan Triage Chief Complaint: Shortness of Breath ED Provider: Carlos Nair Dx/Rx/DC Orders Prescriptions: No Action albuterol sulfate 90 mcg/actuation HFA aerosol inhaler 1 inh inhalation PRN alprazolam 0.5 mg tablet 0.5 mg PO BID Patient Comments: TAKE 1 TABLET BY MOUTH TWICE DAILY zolpidem 10 mg tablet 10 mg PO QHS oxycodone-acetaminophen [Endocet] 5-325 mg tablet 1 tab PO Q6H PRN (Reason: pain) 3 Days Qty: 12 0RF ketorolac 10 mg tablet 10 mg PO Q8H PRN (Reason: pain) Qty: 15 0RF Rx Instructions: maximum total duration of 5 days from all oral, intranasal, or parenteral formulations dicyclomine 20 mg tablet 20 mg PO TID PRN (Reason: abdominal pain) Qty: 30 0RF pantoprazole 20 mg tablet,delayed release (DR/EC) 20 mg PO BID sucralfate [Carafate] 1 gram tablet 1 g PO DAILY Primary Care Provider: Dex Wilkinson Referrals: Dex Wilkinson MD [Primary Care Provider] - Print Language: Indian
[2024-07-20 19:53] LABS: Absolute Lymphocyte Count 0.38 X10^3/uL (0.83-4.51); Absolute Neutrophil Count 13.6 X10^3/uL (2.0-7.7); Basophil# 0.02 X10^3/uL; Basophil% 0.1 % (0-1); Hematocrit 40.2 % (37-47); Hemoglobin 13.2 g/dL (12.0-15.0); Lymphocyte # 0.38 X10^3/ul (0.83-4.51); Lymphocyte % 2.7 % (19-41); Mean Corp Hgb Conc 32.8 g/dL (32-36); Mean Corpuscular Hgb 32.1 pg (27.0-32.0); Mean Corpuscular Volume 97.8 fL (81-99); Mean Platelet Vol. 10.3 fl (6.2-12.0); Monocyte# 0.21 X10^3/uL; Monocyte% 1.5 % (0-10); NRBC Flagged by Analyzer 0 % (0-5); Neutrophil # 13.58 X10^3/uL (2.7-7.7); Neutrophil % 94.7 % (47-70); POSITIVE DIFFERENTIAL YES; Platelet Count 303 K/mm3 (150-450); RBC Distribution Width CV 14.1 % (11.6-14.6); Red Blood Count 4.11 M/mm3 (4.2-5.4); White Blood Count 14.3 K/mm3 (4.4-11.0)
[2024-07-20] MEDS: 0.9% Normal Saline (500mL Bag) 500 ML 1000 ML IV (19:54)
[2024-07-20] MEDS: Ketorolac 15 MG/ML Vial IV (19:54)
[2024-07-20] MEDS: Ondansetron 4 MG/2 ML Vial IV (19:55)
--- NOTE | 2024-07-20 20:06 | RAD_ITS ---
PROCEDURE: CHEST 1 VIEW (PORTABLE) 07/20/2024 REASON FOR EXAM: SHORTNESS OF BREATH TECHNIQUE: Frontal view of the chest. COMPARISON: 07/04/2023 FINDINGS: Hardware: Right pacemaker, unchanged. Heart: Cardiac and mediastinal contours are stable. Lungs: No focal consolidation. No pneumothorax. No pleural effusion. Bones: The bones are unremarkable. Other: RAD/Chest 1 View (Portable) IMPRESSION: No Acute Findings. Reading Location: [facility]
[2024-07-20 20:09] LABS: D-Dimer Quantitative (DVT/PE) 1.06 FEU/ug/m (0.27-0.49)
[2024-07-20 20:15] LABS: ALB/GLOB Ratio 1.7 RATIO (0.9-2.4); AST(SGOT) 26 U/L (<=31); Alanine Aminotransfer ALT/SGPT 34 U/L (<=34); Albumin, Serum 4.3 g/dL (3.5-5.0); Alkaline Phosphatase 116 U/L (35-104); Anion Gap 13 (5-15); BUN 19 mg/dL (4-19); BUN/Creat Ratio 21.8 RATIO (10-20); Bilirubin, Direct 0.29 mg/dL (0.00-0.30); Calcium,Total 9.3 mg/dL (7.6-11.0); Chloride 104 mmol/L (98-108); Creatinine, Serum 0.88 mg/dL (0.70-1.20); EST Glomerular Filtration Rate 83 (>60); Estimated Creatinine Clearance 70.45 ml/min (50-250); Globulin 2.5 g/dL (2.2-4.2); Glucose 171 mg/dL (70-99); Lipase 32 U/L (13-75); Potassium 4.4 mmol/L (3.3-5.1); Pro- Brain NATRIURETIC PEPTIDE 6468 pg/mL (<=450); Protein, Total 6.8 g/dL (5.9-8.4); Sodium Level 135 mmol/L (133-145); Total Bilirubin 0.61 mg/dL (0.00-1.30)
[2024-07-20 20:19] LABS: White Blood Cells 0 SEEN /hpf (0-5)
[2024-07-20 20:34] LABS: Color, Urine Straw (Yellow); Glucose, Dipstick Normal (Normal); Ketone-Dipstick Negative (Negative); Leukocyte Esterase-Dipstick Negative /ul (Negative); Nitrite-Dipstick Negative (Negative); Occult Blood-Urine 25 /ul (Negative); Protein-Dipstick 100 mg/dl (Negative); Urine Bilirubin Dipstick Negative (Negative); Urine Clarity Clear (Clear); Urine Urobilinogen Normal (Normal)
[2024-07-20 20:37] LABS: Internal QC Validated? YES +Cl - CLEAR BKGD; Pregnancy, Urine Negative Negative
[2024-07-20 20:42] LABS: Troponin T High Sensitivity 27 ng/L (<=14)
[2024-07-20 20:58] LABS: Bacteria 2+ /hpf (None Seen); Hyaline Cast 5-10 SEEN /lpf (0-5); Mucous, Urine 1+ /hpf (<or=2+); Red Blood Cells-Urine 0-5 SEEN /hpf (0-5); Squamous Epithelial Cells - UA 5-10 SEEN /hpf (5-10)
[2024-07-20 21:00] VITALS: BP 149/90; PULSE 74; PULSE 75; RESP 20; RESP 21; TEMP 36.8; O2SAT 100; O2SAT 98
--- NOTE | 2024-07-20 21:15 | CT_ITS ---
PROCEDURE: ABDOMEN/PELVIS W IV CONT ONLY 07/20/2024 REASON FOR EXAM: ABDOMINAL PAIN STATUS POST COLONOSCOPY TECHNIQUE: Abdomen and pelvis CT with intravenous contrast. Coronal and Sagittal reconstruction series were provided. PATIENT PREPARATION: Per protocol ORAL CONTRAST TYPE: None. AMOUNT: mL CONTRAST: Omnipaque 350 VOLUME: 100 mL Not Provided Gauge IV One or more dose reduction techniques were used (e.g., Automated exposure control, adjustment of the mA and/or kV according to patient size, use of iterative reconstruction technique. COMPARISON: CT abdomen and pelvis 07/03/2024 FINDINGS: Lung bases: Please see the same-day CT of the chest. Liver: Hepatomegaly, craniocaudal length 19.2 cm. Diffusely heterogenous attenuation. Mild periportal edema. No focal lesion. Gallbladder: No ductal dilation. Cholecystectomy. Spleen: Normal size. Pancreas: Normal size without evidence of mass surrounding inflammation or ductal dilation. Adrenals: Unremarkable. Kidneys: Normal renal sizes. No hydronephrosis. Bladder: Urinary bladder is unremarkable. Reproductive Organs: No pelvic mass. Bowel: Stomach is collapsed. No bowel dilation or wall thickening. Appendix: Status post cholecystectomy. Lymph nodes: Unremarkable. Vasculature: The abdominal aorta and IVC are normal. Mild atherosclerotic calcification. Peritoneum / Retroperitoneum: Small abdominopelvic ascites. No pneumoperitoneum. Bones: No acute osseous abnormality. Soft tissue: Mild diffuse subcutaneous edema. CT/Abdomen/Pelvis W IV Cont ONLY IMPRESSION: 1. No acute findings in the abdomen and pelvis. 2. Mild hepatomegaly with heterogenous hepatic attenuation. 3. Small abdominopelvic ascites. Reading Location: [facility]
--- NOTE | 2024-07-20 21:15 | CT_ITS ---
PROCEDURE: CTA CHEST W/WO CONTRAST 07/20/2024 REASON FOR EXAM: SOB, ELEVATED D-DIMER TECHNIQUE: CTA axial imaging of the chest with intravenous contrast. Multiplanar and multisequence images were obtained. PATIENT PREPARATION: Per protocol CONTRAST: Omnipaque 350 VOLUME: 100 mL Not Provided Gauge IV One or more dose reduction techniques were used (e.g., Automated exposure control, adjustment of the mA and/or kV according to patient size, use of iterative reconstruction technique). COMPARISON: CT chest 12/26/2022 FINDINGS: Hardware: Right chest wall ICD. Lymph nodes: No suspicious adenopathy. Heart: Mild cardiomegaly. Trace pericardial effusion. Thoracic Aorta: No thoracic aortic aneurysm or dissection. Pulmonary Vessels: No large central pulmonary emboli are identified. Contrast timing is suboptimal for evaluation of more distal branches. Most Proximal Level of Embolus (if embolus present): None Lungs and Airways: Central airways are patent without endobronchial lesions. Upper lobe predominant diffuse interlobular septal thickening. Mild diffuse ground-glass opacities and mosaic attenuation. No suspicious pulmonary nodules. No pneumothorax. Small bilateral pleural effusions, with atelectasis. Upper Abdomen: Contrast reflux into the hepatic veins, suggestive of right heart dysfunction. Partially imaged perihepatic and perisplenic ascites. Bones: No acute osseous abnormality. Chest wall: Chest wall is unremarkable. CT/CTA Chest W/WO Contrast IMPRESSION: 1. No evidence of pulmonary embolism. 2. Diffuse interlobular septal thickening, scattered ground-glass opacities and bilateral pleural effusions, concerning for pulmonary edema. 3. Cardiomegaly, with trace pericardial effusion. 4. Contrast reflux into the hepatic veins suggestive of right heart dysfunction . Reading [facility]
[2024-07-20 22:51] LABS: Troponin T High Sens 2 HR 36 ng/L (<=14)
[2024-07-20 23:00] VITALS: BP 142/100; PULSE 73; RESP 23; O2SAT 94
--- NOTE | 2024-07-20 23:22 | PCM.HP.STD ---
[facility] - General General Date of Admission: 07/21/24 Date of Service: 07/20/24 Chief Complaint: SOB and Near Syncope. [facility] Narrative SANDRA MITCHELL, is a 43 F with a past medical history of former tobacco abuse (quit ~6 months ago), hypertrophic cardiomyopathy; s/p PPM/AICD (2017), history of asthma; on prn albuterol, history of PTX, history of PE; not currently on current anticoagulation, history of endometrial cancer, history of ovarian cancer; s/p Left oophorectomy, history of cervical polypectomy, history of breast cancer; s/p Left mastectomy, history of cholecystectomy, history of appendectomy, IBS, GERD with hiatal hernia; on pantoprazole and sucralfate, history of migraine headaches, generalized anxiety; on alprazolam BID, chronic insomnia; on zolpidem and history of recent colonoscopy ~8 days ago who presents to [facility] ER complaining of shortness of breath and near syncope. Ms. Mitchell reports her symptoms began approximately 3 weeks ago on Tuesday, July 01, 2024 with diffuse, generalized abdominal pain that was constant and moderate - but was made acutely wore after her recent colonoscopy culminating in her turning blue and almost passing out just prior to arrival so she decided to come in for further evaluation and treatment. She also admits to nausea with one episode of bilious emesis prior to coming in that was relieved with ondansetron. She denies associated chest pain, unilateral leg swelling, HRT, chemotherapy within the past 6 months, palpitations, heart racing, fever, chills, cough, dysuria, hematuria, headache or rash. In the ER she was noted to have an elevated NT pro-BNP II of 6,468 pg/mL with an elevated d-dimer of 1.06 present on admission so she then underwent a CTA of the chest with IV contrast to revealed no evidence of pulmonary embolism with diffuse interlobular septal thickening with scattered ground-glass opacities and bilateral pleural effusions concerning for pulmonary edema with cardiomegaly, trace pericardial effusion and reflux of contrast into the hepatic veins suggestive of Right heart dysfunction consistent with AE of CHF; of uncertain type with mildly elevated troponin T of 27 ng/L present on admission suspected to be due to Acute Cardiac Strain complicated by Leukocytosis of 14.3K with Left-shift of 1% present on admission with a UA negative for infection and a CT scan of the abdomen and pelvis that revealed no acute findings in the abdomen and pelvis with mild hepatomegaly with heterogenous hepatic attenuation with small abdominopelvic ascites. She was then admitted to the PCU for ongoing care for a stay that is expected to extend beyond 2 midnights. [facility] Medical History (Updated 07/21/24 @ 01:[address] 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 Ovarian cancer GERD (gastroesophageal reflux disease) Insomnia Anxiety Collapsed lung History of blood clots Asthma Breast cancer Pacemaker ICD (implantable cardioverter-defibrillator) in place Hypertrophic cardiomyopathy Home Medications ?Medication ?Instructions ?Recorded ?Last Taken ?Type alprazolam 0.5 mg tablet 0.5 mg PO BID 11/13/21 07/11/24 History zolpidem 10 mg tablet 10 mg PO QHS 11/13/21 07/11/24 History albuterol sulfate 90 mcg/actuation 1 inh inhalation PRN 07/26/23 Unknown History aerosol inhaler dicyclomine 20 mg tablet 20 mg PO TID PRN abdominal pain 07/03/24 Unknown Rx #30 tabs pantoprazole 20 mg tablet,delayed 20 mg PO BID 07/10/24 07/11/24 History release sucralfate 1 gram tablet (Carafate) 1 g PO BIDCM 07/10/24 07/11/24 History prednisone 20 mg tablet 40 mg PO Q12H 07/20/24 Unknown History Allergy/AdvReac Type Severity Reaction Status Date / Time morphine Allergy Mild Hives Verified 07/20/24 19:03 codeine Allergy Hives Verified 07/20/24 19:03 erythromycin base Allergy PT UNSURE Verified 07/20/24 19:03 OF REACTION Fish Containing Products Allergy Other Verified 07/20/24 19:03 levofloxacin Allergy PT UNSURE Verified 07/20/24 19:03 OF REACTION shellfish derived Allergy Other Verified 07/20/24 19:03 tramadol Allergy Hives Verified 07/20/24 19:03 trimethobenzamide (From Allergy Other Verified 07/20/24 19:03 Tigan) gabapentin (From Neurontin) AdvReac Severe Anaphylaxis Verified 07/20/24 19:03 acetaminophen (From Vicodin) AdvReac Other Verified 07/20/24 19:03 hydrocodone (From Vicodin) AdvReac Other Verified 07/20/24 19:03 metoclopramide (From Reglan) AdvReac Other Verified 07/20/24 19:03 Family History Father Heart disease Idiopathic hypertrophic subaortic stenosis, hypertrophic obstructive cardiomyopathy, congestive heart failure Mother Breast cancer DVT (deep venous thrombosis) Sister Hypertrophic obstructive cardiomyopathy heart transplant at age 34 Cancer Brain, breast, and colon Grandfather Heart disease at age 45 Grandmother CVA (cerebral vascular accident) age 43 Surgical History History of cardiac catheterization History of oophorectomy History of cervical polypectomy History of colonoscopy History of tubal ligation History of mastectomy History of cholecystectomy Hx of appendectomy Social History household members: spouse and family housing: house current occupational status: employed Smoking Status: Current every day smoker tobacco type: cigarettes how long ago did patient quit smokin months ago alcohol intake: former substance use type: does not use caffeine: Yes ROS ROS Narrative Review of Systems: Constitutional: Patient denies fever or chills. Eyes: Patient denies changes in vision or discharge from eyes. ENT: Patient denies runny nose, sore throat or ear pain. Resp: Patient admits to SOB and turning blue as per HPI. She denies cough. CV: Patient denies chest pain, palpitations or heart racing. GI: Patient admits to diffuse, generalized abdominal pain made worse after recent colonoscopy with nausea and bilious emesis x 1 earlier today as per HPI. : Patient denies dysuria or hematuria. MSK: Patient denies arthralgias or myalgias. Skin: Patient denies rash, abscess, wounds or jaundice. Psych: Patient denies symptoms of uncontrolled depression or anxiety. Neuro: Patient denies headache, paresthesias or focal neurologic deficits. Allergy: Patient denies lip swelling, tongue swelling ur urticaria. Hematology: Patient denies easy bleeding or easy bruisability. Endocrinology: Patient denies polyuria, polydipsia, polyphagia or heat/cold intolerance. 14 point ROS otherwise negative except for positives noted above by HPI. Vital Signs Vital Signs Vital Signs: 07/20/24 18:57 07/20/24 21:00 07/20/24 21:00 Temperature 97.6 F L 98.3 F Temperature Source Temporal Oral Pulse Rate 88 74 75 Respiratory Rate 22 H 20 H 21 H Respiratory Effort Respiratory Depth Respiratory Pattern Blood Pressure 146/101 H 149/90 H 149/90 H Blood Pressure Mean 116 109 109 Pulse Ox 98 98 100 Oxygen Delivery Method Room Air Room Air 07/20/24 23:00 07/20/24 23:03 Temperature Temperature Source Pulse Rate 73 Respiratory Rate 23 H Respiratory Effort Normal Non-Labored Respiratory Depth Normal Respiratory Pattern Normal Blood Pressure 142/100 H Blood Pressure Mean 114 Pulse Ox 94 Oxygen Delivery Method Room Air Weight Weight: 138 lb Body Mass Index (BMI) 23.6 Physical Exam Const alert and oriented x3 Constitutional Narrative: Mild distress noted. General Appearance: cooperative HEENT normocephalic, head/scalp atraumatic, hearing grossly normal bilaterally and moist oral mucous membranes Eyes PERRL, EOMs intact bilaterally and conjunctivae normal Neck no lymphadenopathy, supple and no JVD Resp Resp Narrative: Diminished breath sounds throughout. Cardio regular rate and regular rhythm GI soft to palpation GI Narrative: Patient TTP over epigastrium but soft and nondistended with no guarding or rebound. Extremity normal to inspection, full ROM and no clubbing, cyanosis or edema Skin Skin Narrative: Patient has no evidence of rash, abscess, wounds or jaundice. Neuro oriented x3, CN's II-XII intact bilaterally, moves all extremities and no focal motor deficits Sensorium / Orientation: awake, alert, oriented to person, oriented to place and oriented to time Speech: speech normal Psych affect normal Results Medical Records Data Attestation: I reviewed the patient's medical records Lab / Micro Data Attestation: I reviewed the patient's lab results. 07/20/24 19:26 07/20/24 19:26 Labs: Laboratory Results - last 24 hr 07/20/24 19:26: WBC 14.3 H, RBC 4.11 L, Hgb 13.2, Hct 40.2, MCV 97.8, MCH 32.1 H, MCHC 32.8, RDW Std Deviation 51.0 H, RDW Coeff of Damon 14.1, Plt Count 303, MPV 10.3, Immature Gran % (Auto) 1.000 H, Neut % (Auto) 94.7 H, Lymph % (Auto) 2.7 L, [place] % (Auto) 1.5, Eos % (Auto) 0.0, Baso % (Auto) 0.1, Absolute Neuts (auto) 13.6 H, Absolute Lymphs (auto) 0.38 L, Nucleated RBC % 0, D-Dimer Quant (PE/DVT) 1.06 H*, Sodium 135, Potassium 4.4, Chloride 104, Carbon Dioxide 19.0 L, Anion Gap 13, BUN 19, Creatinine 0.88, Estim Creat Clear Calc 70.45, Est GFR (MDRD) Non-Af 83, BUN/Creatinine Ratio 21.8 H, Glucose 171 H, Calcium 9.3, Total Bilirubin 0.61, Direct Bilirubin 0.29, AST 26, ALT 34, Alkaline Phosphatase 116 H, Troponin T High Sens 27 H, NT pro BNP II 6468 H, Total Protein 6.8, Albumin 4.3, Globulin 2.5, Albumin/Globulin Ratio 1.7, Lipase 32 07/20/24 20:05: Urine Color Straw, Urine Clarity Clear, Urine pH 6.0, Ur Specific [place] 1.020, Urine Protein 100 H, Urine Glucose (UA) Normal, Urine Ketones Negative, Urine Occult Blood 25 H, Urine Nitrite Negative, Urine Bilirubin Negative, Urine Urobilinogen Normal, Ur Leukocyte Esterase Negative, Urine RBC 0-5 SEEN, Urine WBC 0 SEEN, Ur Squamous Epith Cells 5-10 SEEN, Urine Bacteria 2+, Hyaline Casts 5-10 SEEN, Urine Mucus 1+, Urine Test Negative 07/20/24 22:30: Troponin T Hi Sens 2 Hr 36 H Imaging Radiology Impression Chest X-Ray 07/20/24 20:06 IMPRESSION: No Acute Findings. [facility] Abdom[facility]/Pelvis CT 07/20/24 21:15 IMPRESSION: 1. No acute findings in the abdomen and pelvis. 2. Mild hepatomegaly with heterogenous hepatic attenuation. 3. Small abdominopelvic ascites. [facility] Chest [facility] 07/20/24 21:15 IMPRESSION: 1. No evidence of pulmonary embolism. 2. Diffuse interlobular septal thickening, scattered ground-glass opacities and bilateral pleural effusions, concerning for pulmonary edema. 3. Cardiomegaly, with trace pericardial effusion. 4. Contrast reflux into the hepatic veins suggestive of right heart dysfunction. Reading Location: [facility] Assessment & Plan Assessment/Plan (1) Heart failure of unknown etiology: (2) Hypertrophic cardiomyopathy: (3) ICD (implantable cardioverter-defibrillator) in place: (4) Pacemaker: (5) Elevated troponin: (6) Leukocytosis: QUALIFIERS: Leukocytosis type: unspecified Qualified Code(s): D72.829 - Elevated white blood cell count, unspecified (7) Abdominal pain: QUALIFIERS: Abdominal location: unspecified location Qualified Code(s): R10.9 - Unspecified abdominal pain (8) Nausea & vomiting: QUALIFIERS: Vomiting type: unspecified Qualified Code(s): R11.2 - Nausea with vomiting, unspecified PLAN: Plan 1. AE of CHF; of uncertain type with elevated NT pro-BNP II of 6,468 pg/mL present on admission and CT evidence of pulmonary vascular congestion with an episode of Near Syncope in the setting of previously known Hypertrophic Cardiomyopathy; s/p PPM/AICD (2017) - Admit to PCU. Continue IV furosemide begun in the ER and check daily NT pro-BNP II daily to follow trend. Check echocardiogram to evaluate LVEF. Finally, we will consult [facility] to see this patient on rounds in the AM for further recommendations with help appreciated in advance. 2. Mildly elevated troponin T of 27 ng/L present on admission suspected to be due to Acute Cardiac Strain due to #1 - Serialize troponin. Give ECASA. 3. Leukocytosis of 14.3K with Left-shift of 1% present on admission complicating #1 & #2 with possible superimposed Pneumonia; possibly due to aspiration after recent emesis given negative UA, CT abdomen and pelvis and no wounds - Start empiric IV ceftriaxone plus IV metronidazole and check culture and sensitivity data. Give acetaminophen prn [id number] (level 1-5/10) pain or fever. Give low-dose hydromorphone IV prn for severe (level 6-10/10) pain. 4. Abdominal Pain made worse after recent colonoscopy with Nausea and Vomiting compounding #1 - #[address] scan of the abdomen and pelvis this admission in the setting of known IBS and GERD; with hiatal hernia - Continue pantoprazole and sucralfate as before. Give ondansetron IV prn nausea and vomiting. Give promethazine IM prn for breakthrough nausea. 5. History of PE; not currently on current anticoagulation with elevated d-dimer of 1.06 present on admission - CTA of chest with IV contrast negative for PE. Check LE Doppler to evaluate for recurrent DVT. 6. Former tobacco abuse (quit ~6 months ago) - Noted. 7. History of asthma; on prn albuterol - Stable with no current evidence of acute flare. Give nebulizers prn. 8. History of PTX - Noted with no evidence of recurrence at this time. 9. History of endometrial cancer - Noted. 10. History of ovarian cancer; s/p Left oophorectomy - Noted. 11. History of cervical polypectomy - Noted. 12. History of breast cancer; s/p Left mastectomy - Noted with patient currently in remission. 13. History of cholecystectomy - Noted. 14. History of appendectomy - Noted. 15. History of migraine headaches - Noted with no complaints related to this issue at this time. 16. Generalized anxiety; on alprazolam BID - Current therapy to continue. 17. Chronic insomnia; on zolpidem - Resume zolpidem q. HS as before. 18. DVT prophylaxis - Enoxaparin 40 mg sq daily. Total time: Approximately (but not less than) 75 minutes. Charges/Coding Visit Charges Inpatient E&M: 86211 Init Hosp L3
[2024-07-20] MEDS: oxyCODONE 5 MG Tablet PO (23:34)
[2024-07-20] MEDS: Furosemide 40 MG/4 ML Vial IV (23:35)
[2024-07-20 23:38] VITALS: BP 133/100; PULSE 70; RESP 15; TEMP 36.8; O2SAT 99
[2024-07-21] VITALS (8 sets, daily range): BP systolic 128–144; BP diastolic 85–95; PULSE 60–69; RESP 14–20; TEMP 36.2–36.7; O2SAT 97–100; BMI 23.0; BMI 22.9
[2024-07-21 00:10] LABS: Troponin T High Sens 4 HR 37 ng/L (<=14)
--- NOTE | 2024-07-21 00:48 | ECHOD_ITS ---
Reason For Study Reason For Study: CHF Procedure This was a 2D Doppler, Color Flow transthoracic echocardiogram. Myocardial strain analysis was performed in this exam to aid in the assessment of cardiac function. Exam performed portable in patient room. Left Ventricle Mild concentric left ventricular hypertrophy. Normal LV size. Generalized LV hypokinesis. Estimated LVEF 35%. Stage II diastolic dysfunction. Right Ventricle Normal right ventricle. ICD or pacer leads identified within the right ventricle. Atria The left atrium is severely enlarged. The right atrium is mildly enlarged. Suspect vegetation on the atrial side of the ICD wire. Mitral Valve Mild (1+) mitral valve insufficiency. Tricuspid Valve Moderate (2+) tricuspid valve insufficiency. Right ventricular systolic pressure estimated to be 77 mmHg. Aortic Valve Trisinus/trileaflet aortic valve. Pulmonic Valve The pulmonic valve is not well visualized. Great Vessels Normal sized aortic root. Pericardium/Pleural No pericardial effusion. MMode/2D Measurements & Calculations LVIDd: 4.8 cm IVSd: 1.2 cm Ao root diam: 2.5 cm LVIDs: 4.0 cm LVPWd: 0.84 cm RVDd: 3.8 cm FS: 15.8 % LAV(MOD-bp): 74.6 ml LVAd ap4: 25.2 cm2 LVAd ap2: 22.2 cm2 LAV(MOD-bp) Indexed: 44.7 ml/m2 LVLd ap4: 6.7 cm LVLd ap2: 6.8 cm LAV(MOD-sp2): 62.4 ml EDV(MOD-sp4): 74.1 ml EDV(MOD-sp2): 62.5 ml LAV(MOD-sp4): 86.2 ml EDV(sp4-el): 80.2 ml EDV(sp2-el): 62.1 ml LVAs ap4: 18.8 cm2 LVAs ap2: 16.5 cm2 LVLs ap4: 6.5 cm LVLs ap2: 6.1 cm ESV(MOD-sp4): 46.8 ml ESV(MOD-sp2): 39.4 ml ESV(sp4-el): 46.4 ml ESV(sp2-el): 37.6 ml EF(MOD-sp4): 36.8 % EF(MOD-sp2): 36.9 % EF(sp4-el): 42.1 % SV(MOD-sp4): 27.3 ml SV(MOD-sp2): 23.1 ml SV(sp4-el): 33.7 ml SI(MOD-sp4): 16.3 ml/m2 SI(MOD-sp2): 13.8 ml/m2 LA A4 area: 26.5 cm2 LA dimension(2D): 4.8 cm RA A4 area: 21.3 cm2 TAPSE: 1.4 cm Doppler Measurements & Calculations MV E max reza: 37.0 cm/sec Lat Peak E' Reza: 3.4 cm/sec Med Peak E' Reza: 2.9 cm/sec MV A max reza: 28.5 cm/sec E/E' lat: 10.7 E/E' med: 12.9 MV E/A: 1.3 Ao V2 max: 87.6 cm/sec LV V1 max: 74.6 cm/sec PA V2 max: 70.2 cm/sec Ao max P.1 mmHg LV V1 max P.2 mmHg Ao V2 mean: 58.4 cm/sec LV V1 mean P.1 mmHg Ao mean P.6 mmHg LV V1 mean: 47.2 cm/sec Ao V2 VTI: 18.3 cm LV V1 VTI: 14.4 cm AV (velocity ratio): 0.79 TR max reza: 394.0 cm/sec TR max P.1 mmHg ECHO/Echo Complete Interpretation Summary Mild concentric left ventricular hypertrophy. Generalized LV hypokinesis. Estimated LVEF 35%. Stage II diastolic dysfunction. 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 The left atrium is severely enlarged. Suspect vegetation on the atrial side of the ICD wire. Similar finding noted kobe norris on reviewing echocardiogram from 2023. Consider MICKI for further evaluation if clinically indicated. Mild (1+) mitral valve insufficiency. Moderate (2+) tricuspid valve insufficiency. Right ventricular systolic pressure estimated to be 77 mmHg. Severe pulmonary h ypertension. Ordering Physician: Nito Umaña Referring Physician: Dex Wilkinson Performed By: Maru Kothari RDCS
--- NOTE | 2024-07-21 00:48 | VDLE_ITS ---
Reason For Study Reason For Study: Shortness of Breath RIGHT LEFT GSV is normal. GSV is normal. CFV is compressible, spontaneous, competent and CFV is compressible, spontaneous, competent, and demonstrates pulsatile venous flow. demonstrates pulsatile venous flow. FV is compressible, spontaneous, competent and FV is compressible, spontaneous, competent and demonstrates pulsatile venous flow. demonstrates pulsatile venous flow. POP V is compressible, spontaneous, competent and POP V is compressible, spontaneous, competent and demonstrates pulsatile venous flow. demonstrates pulsatile venous flow. T/P Trunk is compressible. T/P Trunk is compressible. PTV is compressible. PTV is compressible. RT PerV is compressible. LT PerV is compressible. Procedure This is a venous duplex using B-mode, color flow and spectral Doppler. Exam performed in department. The exam was diagnostic. A preliminary report was called and/or faxed to Dr Bishop / PCU studio owner Jody. VL/Venous Duplex US - Wan Extrem Interpretation Summary Deep veins of the bilateral lower extremities are patent and compressible segme ntally. There is no evidence of bilateral lower extremity deep vein thrombosis. The bilateral great saphenous veins appea r patent and compressible segmentally. Ordering Physician: Nito Umaña Performed By: Wei Kessler, RVT
[2024-07-21 00:55] LABS: Magnesium 1.9 mg/dL (1.5-2.2)
[2024-07-21] MEDS: HYDROmorphone 0.5 MG/0.5 ML SYRINGE IV ×5 (01:21→21:06)
[2024-07-21] MEDS: 0.9% Saline Lock 10 ML Syringe IV ×5 (01:21→23:19)
[2024-07-21] MEDS: Ceftriaxone 1 GM/50 ML BAG IV (01:26)
[2024-07-21] MEDS: predniSONE 20 MG Tablet 40 MG PO ×2 (01:40→09:39)
[2024-07-21] MEDS: Zolpidem Tartrate 5 MG Tablet PO ×2 (01:40→21:33)
[2024-07-21] MEDS: Aspirin E.C. 325 MG Tablet PO (01:42)
[2024-07-21] MEDS: metroNIDAZOLE 500 MG/100 ML BAG 100 MG IV ×2 (02:04→05:41)
[2024-07-21 04:41] LABS: Hemoglobin A1c 5.6 % (<=5.6)
[2024-07-21] MEDS: Sucralfate 1 GM Tablet PO (05:41)
[2024-07-21 05:42] LABS: Absolute Lymphocyte Count 0.59 X10^3/uL (0.83-4.51); Absolute Neutrophil Count 15.8 X10^3/uL (2.0-7.7); Basophil# 0.03 X10^3/uL; Basophil% 0.2 % (0-1); Eosinophil# 0.02 X10^3/uL; Eosinophils% 0.1 % (0-5); Hemoglobin 13.6 g/dL (12.0-15.0); Lymphocyte # 0.59 X10^3/ul (0.83-4.51); Lymphocyte % 3.5 % (19-41); Mean Corp Hgb Conc 33.2 g/dL (32-36); Mean Corpuscular Hgb 32.3 pg (27.0-32.0); Mean Corpuscular Volume 97.4 fL (81-99); Mean Platelet Vol. 10.3 fl (6.2-12.0); Monocyte# 0.44 X10^3/uL; Monocyte% 2.6 % (0-10); NRBC Flagged by Analyzer 0 % (0-5); Neutrophil # 15.78 X10^3/uL (2.7-7.7); Neutrophil % 92.6 % (47-70); POSITIVE DIFFERENTIAL YES; Platelet Count 307 K/mm3 (150-450); RBC Distribution Width CV 14.2 % (11.6-14.6); RBC Distribution Width SD 51.1 fl (35.1-43.9); Red Blood Count 4.21 M/mm3 (4.2-5.4)
[2024-07-21 06:37] LABS: ALB/GLOB Ratio 1.6 RATIO (0.9-2.4); AST(SGOT) 29 U/L (<=31); Alanine Aminotransfer ALT/SGPT 35 U/L (<=34); Albumin, Serum 4.4 g/dL (3.5-5.0); Alkaline Phosphatase 118 U/L (35-104); Anion Gap 14 (5-15); BUN 23 mg/dL (4-19); BUN/Creat Ratio 23.1 RATIO (10-20); Calcium,Total 9.3 mg/dL (7.6-11.0); Carbon Dioxide 19.4 mmol/L (21.0-32.0); Chloride 102 mmol/L (98-108); Cholesterol 177 mg/dL (<=200); Creatinine, Serum 0.99 mg/dL (0.70-1.20); EST Glomerular Filtration Rate 72 (>60); Estimated Creatinine Clearance 62.62 ml/min (50-250); Globulin 2.6 g/dL (2.2-4.2); Glucose 131 mg/dL (70-99); High Density Lipoprotein 40 mg/dL; Low Density Lipoprotein Calc. 92 mg/dL; Phosphorus 3.7 mg/dL (2.7-4.5); Potassium 4.8 mmol/L (3.3-5.1); Sodium Level 135 mmol/L (133-145); Total Bilirubin 0.59 mg/dL (0.00-1.30); Triglycerides 224 mg/dL; Very Low Density Lipoprotein 45 mg/dL (5-40); cholesterol:hdl ratio screen 4.43
--- NOTE | 2024-07-21 07:53 | PCM.PN.HOSP ---
Reason for Visit Reason for Visit: Diagnoses Elevated white blood cell count, unspecified (07/21/24) Other hypertrophic cardiomyopathy (07/21/24) Heart failure, unspecified (07/21/24) Unspecified abdominal pain (07/21/24) Nausea with vomiting, unspecified (07/21/24) Other specified abnormal findings of blood chemistry (07/21/24) Presence of cardiac pacemaker (07/21/24) Presence of automatic (implantable) cardiac defibrillator (07/21/24) Subjective Subjective short of breath. Objective Data Objective Data Vital Signs: Vital Signs Temp Pulse Resp BP Pulse Ox O2 Del Method 36.7 C 64 14 128/93 H 97 Room Air 07/21/24 05:50 07/21/24 05:50 07/21/24 05:50 07/21/24 05:50 07/21/24 05:50 07/21/24 05:50 Oxygen Delivery Method Room Air Weight: 60.7 kg Body Mass Index (BMI) 22.9 Intake & Output: Intake and Output for Last 24 Hours 07/19/24 07/20/24 07/21/24 23:59 23:59 23:59 Intake Total 500 / 500 450 / 450 Balance 500 / 500 450 / 450 Lab / Micro Data 07/21/24 05:30 07/21/24 05:30 Labs: Laboratory Results - last 24 hr 07/20/24 19:26: WBC 14.3 H, RBC 4.11 L, Hgb 13.2, Hct 40.2, MCV 97.8, MCH 32.1 H, MCHC 32.8, RDW Std Deviation 51.0 H, RDW Coeff of Damon 14.1, Plt Count 303, MPV 10.3, Immature Gran % (Auto) 1.000 H, Neut % (Auto) 94.7 H, Lymph % (Auto) 2.7 L, [place] % (Auto) 1.5, Eos % (Auto) 0.0, Baso % (Auto) 0.1, Absolute Neuts (auto) 13.6 H, Absolute Lymphs (auto) 0.38 L, Nucleated RBC % 0, D-Dimer Quant (PE/DVT) 1.06 H*, Sodium 135, Potassium 4.4, Chloride 104, Carbon Dioxide 19.0 L, Anion Gap 13, BUN 19, Creatinine 0.88, Estim Creat Clear Calc 70.45, Est GFR (MDRD) Non-Af 83, BUN/Creatinine Ratio 21.8 H, Glucose 171 H, Hemoglobin A1c 5.6, Calcium 9.3, Total Bilirubin 0.61, Direct Bilirubin 0.29, AST 26, ALT 34, Alkaline Phosphatase 116 H, Troponin T High Sens 27 H, NT pro BNP II 6468 H, Total Protein 6.8, Albumin 4.3, Globulin 2.5, Albumin/Globulin Ratio 1.7, Lipase 32 07/20/24 20:05: Urine Color Straw, Urine Clarity Clear, Urine pH 6.0, Ur Specific [place] 1.020, Urine Protein 100 H, Urine Glucose (UA) Normal, Urine Ketones Negative, Urine Occult Blood 25 H, Urine Nitrite Negative, Urine Bilirubin Negative, Urine Urobilinogen Normal, Ur Leukocyte Esterase Negative, Urine RBC 0-5 SEEN, Urine WBC 0 SEEN, Ur Squamous Epith Cells 5-10 SEEN, Urine Bacteria 2+, Hyaline Casts 5-10 SEEN, Urine Mucus 1+, Urine Test Negative 07/20/24 22:30: Troponin T Hi Sens 2 Hr 36 H 07/20/24 23:47: Magnesium 1.9, Troponin T Hi Sens 4Hr 37 H, TSH 1.400 07/21/24 05:30: WBC 17.0 H, RBC 4.21, Hgb 13.6, Hct 41.0, MCV 97.4, MCH 32.3 H, MCHC 33.2, RDW Std Deviation 51.1 H, RDW Coeff of Damon 14.2, Plt Count 307, MPV 10.3, Immature Gran % (Auto) 1.000 H, Neut % (Auto) 92.6 H, Lymph % (Auto) 3.5 L, [place] % (Auto) 2.6, Eos % (Auto) 0.1, Baso % (Auto) 0.2, Absolute Neuts (auto) 15.8 H, Absolute Lymphs (auto) 0.59 L, Nucleated RBC % 0, Sodium 135, Potassium 4.8, Chloride 102, Carbon Dioxide 19.4 L, Anion Gap 14, BUN 23 H, Creatinine 0.99, Estim Creat Clear Calc 62.62, Est GFR (MDRD) Non-Af 72, BUN/Creatinine Ratio 23.1 H, Glucose 131 H, Calcium 9.3, Phosphorus 3.7, Total Bilirubin 0.59, AST 29, ALT 35, Alkaline Phosphatase 118 H, Total Protein 7.0, Albumin 4.4, Globulin 2.6, Albumin/Globulin Ratio 1.6, Triglycerides 224 H, Cholesterol 177, LDL Cholesterol, Calc 92, VLDL Cholesterol 45 H, HDL Cholesterol 40, Cholesterol/HDL Ratio 4.43 Radiography Diagnostic Testing: Radiology Impression Chest X-Ray 07/20/24 20:06 IMPRESSION: No Acute Findings. Reading Location: [facility] Abdomen/Pelvis CT 07/20/24 21:15 IMPRESSION: 1. No acute findings in the abdomen and pelvis. 2. Mild hepatomegaly with heterogenous hepatic attenuation. 3. Small abdominopelvic ascites. Reading Location: [facility] Chest CTA 07/20/24 21:15 IMPRESSION: 1. No evidence of pulmonary embolism. 2. Diffuse interlobular septal thickening, scattered ground-glass opacities and bilateral pleural effusions, concerning for pulmonary edema. 3. Cardiomegaly, with trace pericardial effusion. 4. Contrast reflux into the hepatic veins suggestive of right heart dysfunction. Reading Location: [facility] Physical Exam Const alert and no apparent distress Neck Neck Narrative: JVD Resp normal respiratory effort, no retractions, no use of accessory muscles and clear to auscultation bilaterally Cardio regular rate, regular rhythm, S1 normal heart sound and S2 normal heart sound GI normal to inspection, nondistended, normoactive bowel sounds, soft to palpation, non-tender and non-distended Assessment & Plan Assessment/Plan (1) (HFpEF) heart failure with preserved ejection fraction: PLAN: acute Echo from 09/13/23: EF 50%, PASP 58mmHg s/p single-lead AICD CTA chest showed bilateral pleural effusions On IV furosemide 20 IV BID cards consult (2) Leukocytosis: QUALIFIERS: Leukocytosis type: unspecified Qualified Code(s): D72.829 - Elevated white blood cell count, unspecified PLAN: Chronic. No evidence of pneumonia on CT DC abx and observe. (3) Elevated troponin: PLAN: minimal elevation. I doubt cardiac ischemia. Either baseline levels v demand ischemia from CHF in pt with hypertrophic cardiomyopathy. PLAN: Plan VTE prophylaxis: LMWH. Charges/Coding Visit Charges Inpatient E&M: 79069 Subs Hosp L2
[2024-07-21] MEDS: ALPRAZolam 0.5 MG Tablet PO ×2 (09:37→21:33)
[2024-07-21] MEDS: oxyCODONE 5 MG Tablet PO ×3 (09:37→22:08)
[2024-07-21] MEDS: Furosemide 20 MG/2 ML VIAL IV (09:37)
[2024-07-21] MEDS: Lactobacillis Acidophilus 1 CAP PO ×4 (09:38→21:33)
[2024-07-21] MEDS: Potassium Chloride Oral Tablet 20 MEQ PO ×2 (09:38→18:34)
[2024-07-21] MEDS: Magnesium Chloride 64 MG Delay Rel.Tablet 128 MG PO ×2 (09:38→21:33)
[2024-07-21] MEDS: Pantoprazole Sodium 40 MG Tablet PO ×2 (09:40→21:33)
--- NOTE | 2024-07-21 10:30 | CASEMGMT ---
RN?CM?RESIDENT SERVICES COORDINATOR?CM?to room to meet with patient for initial transition planning/care coordination?assessment.?RN?CM?introduced self and role at [facility].? Pt voices understanding and consents to?assessment?at this time.? Pt sitting up in chair in room, stating having severe upper abdominal pain, rating 9/10. Pt states she was medicated about an hour ago and it is not helping. RN, Vanessa, made aware. Pt states still okay with talking w/this RN CM at this time & answering questions, awaiting further pain mgnt intervention. Pt is A/O at this time and answers all questions appropriately.?? Care providers, pharmacy, and demographics verified/updated at this time. PCP: Dr Wilkinson Specialists: Dr Bishop-MITCHELL/Cardiology, Dr Myles-TANGELA Preferred Pharmacy: [facility] Insurance: [place] Prescription Benefit:?Yes LNOK: , Babar. 2 adult children, ages 22 and 19. Living Arrangements: Lives w/her . Independent. 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 Transportation:?Pt states drives self and states no transportation concerns at this time.? also drives and will be taking her home @ dc DME: ? Denies using any DME and denies needs.? HHC/SNF: No hx Pt wishes to return home and states has no concerns with going home at time of discharge.? PLAN:??Home Gilberto KIRBYN?RN?CM
--- NOTE | 2024-07-21 13:16 | CON.PCM.CA_ITS ---
Assessment & Plan Assessment/Plan (1) Acute systolic congestive heart failure, NYHA class 3: PLAN: LVEF 35%. Diuretics. Low-dose beta-blockers. ACEI. Spironolactone. SGLT2 inhibitor. (2) History of hypertrophic cardiomyopathy: PLAN: History of familial hypertrophic cardiomyopathy. LVEF down now. Echocardiogram with suspicion of LV noncompaction as well. Will recommend doing a cardiac MRI as an outpatient for further evaluation. (3) Presence of implantable cardioverter-defibrillator (ICD): PLAN: Echocardiogram suspicious for possible vegetation on the ICD lead in the right atrial part. However same noted on review of echocardiogram from 2023. Patient denies any fevers or chills. Doubt endocarditis clinically. Recommend checking blood cultures. Possible MICKI for further evaluation. (4) Severe pulmonary hypertension: PLAN: History of pulmonary embolism. Combined systolic and diastolic congestive heart failure. Diuretics. (5) Hypertension: PLAN: Beta-blockers, ACEI, diuretics. (6) Hemorrhagic gastritis: PLAN: On pantoprazole. DC aspirin. HPI Consult Data Date of Consult: 07/21/24 HPI Narrative Reason for Consultation: CHF HPI Narrative: This lady has a history of familial hypertrophic cardiomyopathy diagnosed about 15 years ago with a history of ICD implant. Also history of pulmonary embolism. She has a sister with history of cardiac transplant. Recently patient has been complaining of constant abdominal pain along with nausea. She has had an EGD done earlier this month which showed hemorrhagic gastritis. Patient presented to the emergency room yesterday with a complaint of acute onset dyspnea and a near syncope. No chest pain. No ICD discharge. Patient denies any orthopnea. No PND. No ankle edema. Per her, she has been having some exertional dyspnea over the last couple of days only. Patient's preliminary workup revealed elevated proBNP. CT scan of the chest was negative for pulmonary embolism however it showed pulmonary edema. Elevated right heart pressures were also suggested with contrast reflux into the hepatic veins. [facility] Medical History (Updated 07/21/24 @ 13:[address] 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 cancer nursing home current use of 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 Ovarian cancer GERD (gastroesophageal reflux disease) Insomnia Anxiety Collapsed lung History of blood clots Asthma Breast cancer Pacemaker ICD (implantable cardioverter-defibrillator) in place Hypertrophic cardiomyopathy Home Medications ?Medication ?Instructions ?Recorded ?Last Taken ?Type alprazolam 0.5 mg tablet 0.5 mg PO BID 11/13/2107/11 History zolpidem 10 mg tablet 10 mg PO QHS 11/13/21 History albuterol sulfate 90 mcg/actuation 1 inh inhalation LA N 07/26/23 Unknown History aerosol inhaler dicyclomine 20 mg tablet 20 mg PO TID PRN abdominal p ain 07/03/24 Unknown Rx #30 tabs pantoprazole 20 mg tablet,delayed 20 mg PO BID 5 07/11/24 History release sucralfate 1 gram tablet (Carafate) 1 g PO BIDCM 07/1007/11/24 History prednisone 20 mg tablet 40 mg PO Q12H 07/20/24 Unkno wn History Allergy/AdvReac Type Severity Reaction Status Date / Time morphine Allergy Mild Hives Verified 07/20/24 19:03 codeine Allergy Hives Verified 07/20/24 19:03 erythromycin base Allergy PT UNSURE Verified 07/20/24 19:03 OF REACTION Fish Containing Products Allergy Other Verified 07/20/24 19:03 levofloxacin Allergy PT UNSURE Verified 07/20/24 19:03 OF REACTION shellfish derived Allergy Other Verified 07/20/24 19:03 tramadol Allergy Hives Verified 07/20/24 19:03 trimethobenzamide (From Allergy Other Verified 07/20/24 19:03 Tigan) gabapentin (From Neurontin) AdvReac Severe Anaphylaxis Verified 07/20/24 19:03 acetaminophen (From Vicodin) AdvReac Other Verified 07/20/24 19:03 hydrocodone (From Vicodin) AdvReac Other Verified 07/20/24 19:03 metoclopramide (From Reglan) AdvReac Other Verified 07/20/24 19:03 Family History Father Heart disease Idiopathic hypertrophic subaortic stenosis, hypertrophic obstructive cardiomyopathy, congestive heart failure Mother Breast cancer DVT (deep venous thrombosis) Sister Hypertrophic obstructive cardiomyopathy heart transplant at age 34 Cancer Brain, breast, and colon Grandfather Heart disease at age 45 Grandmother CVA (cerebral vascular accident) age 43 Surgical History (Updated 07/21/24 @ 13:[address] Smaan Clay MD) History of cardiac catheterization History of oophorectomy History of cervical polypectomy History of colonoscopy History of tubal ligation History of mastectomy History of cholecystectomy Hx of appendectomy Social History household members: spouse and family housing: house current occupational status: employed Smoking Status: Current every day smoker tobacco type: cigarettes how long ago did patient quit smokin months ago alcohol intake: former substance use type: does not use caffeine: Yes Physical Exam Narrative Comfortable. No apparent distress. Heart sounds 1 and 2 noted. S3. Chest clear to auscultation bilaterally. Alert oriented x 3. No ankle edema. Risk Stratification Risk Stratification Applicable: No Objective Data Vital Signs: Vital Signs Temp Pulse Resp BP Pulse Ox O2 Del Method 97.3 F L 60 16 144/88 H 100 Room Air 07/21/24 09:35 07/21/24 09:35 07/21/24 09:35 07/21/24 09:35 07/21/24 09:35 07/21/24 09:35 Oxygen Delivery Method Room Air Weight: 133 lb 13.129 oz Body Mass Index (BMI) 22.9 Intake & Output: Intake and Output for Last 24 Hours 07/19/24 07/20/24 07/21/24 23:59 23:59 23:59 Intake Total 500 / 500 450 / 450 Balance 500 / 500 450 / 450 Lab / Micro Data Attestation: I reviewed the patient's lab results. 07/21/24 05:30 07/21/24 05:30 Labs: Laboratory Results - last 24 hr 07/20/24 19:26: WBC 14.3 H, RBC 4.11 L, Hgb 13.2, Hct 40.2, MCV 97.8, MCH 32.1 H , MCHC 32.8, RDW Std Deviation 51.0 H, RDW Coeff of Damon 14.1, Plt Count 303, MPV 10.3, Immature Gran % (Auto) 1.000 H, Neut % (Auto) 94.7 H, Lymph % (Auto) 2.7 L , [place] % (Auto) 1.5, Eos % (Auto) 0.0, Baso % (Auto) 0.1, Absolute Neuts (auto) 13.6 H, Absolute Lymphs (auto) 0.38 L, Nucleated RBC % 0, D-Dimer Quant (PE/DVT) 1.06 H*, Sodium 135, Potassium 4.4, Chloride 104, Carbon Dioxide 19.0 L, Anion Gap 13, BUN 19, Creatinine 0.88, Estim Creat Clear Calc 70.45, Est GFR (MDRD) Non-Af 83, BUN/Creatinine Ratio 21.8 H, Glucose 171 H, Hemoglobin A1c 5.6, Calcium 9.3, Total Bilirubin 0.61, Direct Bilirubin 0.29, AST 26, ALT 34, A lkaline Phosphatase 116 H, Troponin T High Sens 27 H, NT pro BNP II 6468 H, Total Protein 6.8, Albumin 4.3, Globulin 2.5, Albumin/Globulin Ratio 1.7, Lipase 32 07/20/24 20:05: Urine Color Straw, Urine Clarity Clear, Urine pH 6.0, Ur Specific [place] 1.020, Urine Protein 100 H, Urine Glucose (UA) Normal, Urine Ketones Negative, Urine Occult Blood 25 H, Urine Nitrite Negative, Urine Bilirubin Negative, Urine Urobilinogen Normal, Ur Leukocyte Esterase Negative, Urine RBC 0-5 SEEN, Urine WBC 0 SEEN, Ur Squamous Epith Cells 5-10 SEEN, Urine Bacteria 2+, Hyaline Casts 5-10 SEEN, Urine Mucus 1+, Urine Test Negative 07/20/24 22:30: Troponin T Hi Sens 2 Hr 36 H 07/20/24 23:47: Magnesium 1.9, Troponin T Hi Sens 4Hr 37 H, TSH 1.400 07/21/24 05:30: WBC 17.0 H, RBC 4.21, Hgb 13.6, Hct 41.0, MCV 97.4, MCH 32.3 H, MCHC 33.2, RDW Std Deviation 51.1 H, RDW Coeff of Damon 14.2, Plt Count 307, MPV 10.3, Immature Gran % (Auto) 1.000 H, Neut % (Auto) 92.6 H, Lymph % (Auto) 3.5 L , [place] % (Auto) 2.6, Eos % (Auto) 0.1, Baso % (Auto) 0.2, Absolute Neuts (auto) 15.8 H, Absolute Lymphs (auto) 0.59 L, Nucleated RBC % 0, Sodium 135, Potassium 4.8, Chloride 102, Carbon Dioxide 19.4 L, Anion Gap 14, BUN 23 H, Creatinine 0.99, Estim Creat Clear Calc 62.62, Est GFR (MDRD) Non-Af 72, BUN/Creatinine Ratio 23.1 H, Glucose 131 H, Calcium 9.3, Phosphorus 3.7, Total Bilirubin 0.59, AST 29, ALT 35, Alkaline Phosphatase 118 H, Total Protein 7.0, Albumin 4.4, Globulin 2.6, Albumin/Globulin Ratio 1.6, Triglycerides 224 H, Cholesterol 177, LDL Cholesterol, Calc 92, VLDL Cholesterol 45 H, HDL Cholesterol 40, Cholesterol/HDL Ratio 4.43 Cardiology Labs/Tests 07/20/24 19:26: WBC 14.3 H, RBC 4.11 L, Hgb 13.2, Hct 40.2, MCV 97.8, MCH 32.1 H , MCHC 32.8, Plt Count 303, MPV 10.3, Immature Gran % (Auto) 1.000 H, Neut % (Auto) 94.7 H, Lymph % (Auto) 2.7 L, [place] % (Auto) 1.5, Eos % (Auto) 0.0, Baso % (Auto) 0.1, Absolute Neuts (auto) 13.6 H, Nucleated RBC % 0, D-Dimer Quant (PE/DVT) 1.06 H*, Sodium 135, Potassium 4.4, Chloride 104, Carbon Dioxide 19.0 L , Anion Gap 13, BUN 19, Creatinine 0.88, Est GFR (MDRD) Non-Af 83, B UN/Creatinine Ratio 21.8 H, Glucose 171 H, Hemoglobin A1c 5.6, Calcium 9.3, Total Bilirubin 0.61, Direct Bilirubin 0.29 07/20/24 20:05: Urine Color Straw, Urine Clarity Clear, Urine pH 6.0, Ur Specific [place] 1.020, Urine Protein 100 H, Urine Glucose (UA) Normal, Urine Ketones Negative, Urine Occult Blood 25 H, Urine Nitrite Negative, Urine Bilirubin Negative, Urine Urobilinogen Normal, Ur Leukocyte Esterase Negative, Urine RBC 0-5 SEEN, Urine WBC 0 SEEN 07/20/24 23:47: Magnesium 1.9 07/21/24 05:30: WBC 17.0 H, RBC 4.21, Hgb 13.6, Hct 41.0, MCV 97.4, MCH 32.3 H, MCHC 33.2, Plt Count 307, MPV 10.3, Immature Gran % (Auto) 1.000 H, Neut % (Auto) 92.6 H, Lymph % (Auto) 3.5 L, [place] % (Auto) 2.6, Eos % (Auto) 0.1, Baso % (Auto) 0.2, Absolute Neuts (auto) 15.8 H, Nucleated RBC % 0, Sodium 135, Potassium 4.8, Chloride 102, Carbon Dioxide 19.4 L, Anion Gap 14, BUN 23 H, Creatinine 0.99, Est GFR (MDRD) Non-Af 72, BUN/Creatinine Ratio 23.1 H, Glucose 131 H, Calcium 9.3, Phosphorus 3.7, Total Bilirubin 0.59, Triglycerides 224 H, Cholesterol 177, VLDL Cholesterol 45 H, HDL Cholesterol 40, Cholesterol/HDL Ratio 4.43 Rhythm: Sinus rhythm. EKG: Sinus rhythm. Left anterior fascicular block. ECHO: LVEF 35%. Severe pulmonary hypertension. Stress Test: Cardiac Cath: PCI: CT Surgery: Holter monitor: EPS: PPM: CXR: Chest CT Scan: Radiography Diagnostic Testing: Radiology Impression Chest X-Ray 07/20/24 20:06 IMPRESSION: No Acute Findings. Reading Location: [facility] Abdomen/Pelvis CT 07/20/24 21:15 IMPRESSION: 1. No acute findings in the abdomen and pelvis. 2. Mild hepatomegaly with heterogenous hepatic attenuation. 3. Small abdominopelvic ascites. Reading Location: [facility] Chest CTA 07/20/24 21:15 IMPRESSION: 1. No evidence of pulmonary embolism. 2. Diffuse interlobular septal thickening, scattered ground-glass opacities and bilateral pleural effusions, concerning for pulmonary edema. 3. Cardiomegaly, with trace pericardial effusion. 4. Contrast reflux into the hepatic veins suggestive of right heart dysfunction. Reading Location: [facility]
[2024-07-21] MEDS: Acetaminophen 500 MG Tablet 1000 MG PO ×2 (14:19→21:33)
[2024-07-21] MEDS: Empagliflozin 10 MG Tablet PO (14:19)
[2024-07-21] MEDS: Ondansetron 4 MG/2 ML Vial IV ×2 (16:40→23:18)
[2024-07-21] MEDS: Carvedilol 3.125 MG TABLET PO (17:49)
[2024-07-21] MEDS: Furosemide 40 MG Tablet PO (18:34)
[2024-07-21] MEDS: Dicyclomine 10 MG Capsule 20 MG PO (21:33)
[2024-07-21] MEDS: Lisinopril 5 MG Tablet PO (21:33)
[2024-07-22 01:57] VITALS: BP 108/64; PULSE 61; RESP 19; TEMP 36.3; O2SAT 99
[2024-07-22] MEDS: HYDROmorphone 0.5 MG/0.5 ML SYRINGE IV ×5 (01:58→21:38)
[2024-07-22] MEDS: 0.9% Saline Lock 10 ML Syringe IV ×5 (01:59→21:39)
[2024-07-22 03:08] VITALS: BMI 23.3
[2024-07-22 05:14] LABS: Absolute Lymphocyte Count 0.95 X10^3/uL (0.83-4.51); Basophil# 0.04 X10^3/uL; Basophil% 0.3 % (0-1); Eosinophil# 0.03 X10^3/uL; Eosinophils% 0.2 % (0-5); Hematocrit 39.1 % (37-47); Hemoglobin 12.7 g/dL (12.0-15.0); Lymphocyte # 0.95 X10^3/ul (0.83-4.51); Lymphocyte % 6.4 % (19-41); Mean Corp Hgb Conc 32.5 g/dL (32-36); Mean Corpuscular Hgb 32.1 pg (27.0-32.0); Mean Corpuscular Volume 98.7 fL (81-99); Mean Platelet Vol. 11.1 fl (6.2-12.0); Monocyte# 0.71 X10^3/uL; Monocyte% 4.8 % (0-10); NRBC Flagged by Analyzer 0 % (0-5); Neutrophil # 13.03 X10^3/uL (2.7-7.7); Neutrophil % 87.1 % (47-70); Platelet Count 280 K/mm3 (150-450); RBC Distribution Width CV 14.1 % (11.6-14.6); RBC Distribution Width SD 51.6 fl (35.1-43.9); Red Blood Count 3.96 M/mm3 (4.2-5.4); White Blood Count 14.9 K/mm3 (4.4-11.0)
[2024-07-22 05:44] VITALS: BP 115/69; PULSE 61; RESP 18; TEMP 36.2; O2SAT 99
[2024-07-22 05:44] LABS: Anion Gap 15 (5-15); BUN 29 mg/dL (4-19); BUN/Creat Ratio 27.6 RATIO (10-20); Calcium,Total 9.1 mg/dL (7.6-11.0); Chloride 100 mmol/L (98-108); Creatinine, Serum 1.05 mg/dL (0.70-1.20); EST Glomerular Filtration Rate 67 (>60); Estimated Creatinine Clearance 59.04 ml/min (50-250); Glucose 112 mg/dL (70-99); Sodium Level 135 mmol/L (133-145)
[2024-07-22] MEDS: Sucralfate 1 GM Tablet PO ×2 (05:48→15:51)
[2024-07-22] MEDS: Acetaminophen 500 MG Tablet 1000 MG PO ×3 (05:48→22:26)
[2024-07-22] MEDS: oxyCODONE 5 MG Tablet PO (05:48)
[2024-07-22 08:00] VITALS: BP 124/75; PULSE 55; RESP 18; TEMP 36.3; O2SAT 99
--- NOTE | 2024-07-22 08:52 | PCM.PN.HOSP ---
Reason for Visit Reason for Visit: Diagnoses Elevated white blood cell count, unspecified (07/21/24) Essential (primary) hypertension (07/21/24) Pulmonary hypertension, unspecified (07/21/24) Other hypertrophic cardiomyopathy (07/21/24) Acute systolic (congestive) heart failure (07/21/24) Unspecified diastolic (congestive) heart failure (07/21/24) Heart failure, unspecified (07/21/24) Gastritis, unspecified, with bleeding (07/21/24) Unspecified abdominal pain (07/21/24) Nausea with vomiting, unspecified (07/21/24) Other specified abnormal findings of blood chemistry (07/21/24) Personal history of other diseases of the circulatory system (07/21/24) Presence of cardiac pacemaker (07/21/24) Presence of automatic (implantable) cardiac defibrillator (07/21/24) Subjective Subjective Still chest pain around her chest into her back. Objective Data Objective Data Vital Signs: Vital Signs Temp Pulse Resp BP Pulse Ox O2 Del Method 36.2 C L 61 18 115/69 99 Room Air 07/22/24 05:44 07/22/24 05:44 07/22/24 05:44 07/22/24 05:44 07/22/24 05:44 07/22/24 08:10 Oxygen Delivery Method Room Air Weight: 61.6 kg Body Mass Index (BMI) 23.3 Intake & Output: Intake and Output for Last 24 Hours 07/20/24 07/21/24 07/22/24 23:59 23:59 23:59 Intake Total 500 / 500 900 / 900 Balance 500 / 500 900 / 900 Lab / Micro Data 07/22/24 04:10 07/22/24 04:10 Labs: Laboratory Results - last 24 hr 07/22/24 04:10: WBC 14.9 H, RBC 3.96 L, Hgb 12.7, Hct 39.1, MCV 98.7, MCH 32.1 H, MCHC 32.5, RDW Std Deviation 51.6 H, RDW Coeff of Damon 14.1, Plt Count 280, MPV 11.1, Immature Gran % (Auto) 1.200 H, Neut % (Auto) 87.1 H, Lymph % (Auto) 6.4 L, [place] % (Auto) 4.8, Eos % (Auto) 0.2, Baso % (Auto) 0.3, Absolute Neuts (auto) 13.0 H, Absolute Lymphs (auto) 0.95, Nucleated RBC % 0, Sodium 135, Potassium 4.0, Chloride 100, Carbon Dioxide 20.0 L, Anion Gap 15, BUN 29 H, Creatinine 1.05, Estim Creat Clear Calc 59.04, Est GFR (MDRD) Non-Af 67, BUN/Creatinine Ratio 27.6 H, Glucose 112 H, Calcium 9.1 Radiography Diagnostic Testing: Radiology Impression Echocardiogram 07/21/24 00:48 Interpretation Summary Mild concentric left ventricular hypertrophy. Generalized LV hypokinesis. Estimated LVEF 35%. Stage II diastolic dysfunction. 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 The left atrium is severely enlarged. Suspect vegetation on the atrial side of the ICD wire. Similar finding noted however on reviewing echocardiogram from 2023. Consider MICKI for further evaluation if clinically indicated. Mild (1+) mitral valve insufficiency. Moderate (2+) tricuspid valve insufficiency. Right ventricular systolic pressure estimated to be 77 mmHg. Severe pulmonary hypertension. Ordering Physician: Nito Umaña Referring Physician: Dex Wilkinson Performed By: Maru Kothari RDCS Physical Exam Const alert and no apparent distress Constitutional Narrative: uncomfortable. HEENT head/scalp atraumatic and moist oral mucous membranes Resp normal respiratory effort, no retractions, no use of accessory muscles and clear to auscultation bilaterally Cardio regular rate, regular rhythm, S1 normal heart sound and S2 normal heart sound GI normal to inspection, nondistended, normoactive bowel sounds, soft to palpation and non-tender Extremity normal to inspection Neuro Sensorium / Orientation: awake and alert Assessment & Plan Assessment/Plan (1) HFrEF (heart failure with reduced ejection fraction): PLAN: acute Echo from 09/13/23: EF 50%, PASP 58mmHg. Now 35% with stage II DD. Severely enlarged LA. RVSP 77mmHg. CW severe pulmonary hypertension. s/p single-lead AICD CTA chest showed bilateral pleural effusions On IV furosemide 20 IV BID. Continue carvedilol 3.125 BID, empagliflozin 10/d, lisinopril 5 BID, spironolactone 12.5/d cards recommending outpt cardiac MRI (2) Elevated troponin: PLAN: minimal elevation. I doubt cardiac ischemia. Either baseline levels v demand ischemia from CHF in pt with hypertrophic cardiomyopathy. (3) Vegetation of heart valve: PLAN: Not valvular, but on ICD wire (atrial side). Previously noted in 2023. FRANCO Clay, who recommend blood cultures to rule out infective endocarditis. Follow up blood cultures. If positive, will need MIKCI. FRANCO Clay pt would require GI clearance prior to undergoing a MICKI. (4) Pulmonary hypertension: PLAN: suspect group 2. PE ruled on CTA unlikely group 1 component, may benefit from referral to pulmonary hypertension specialist. Pt states that she plans on following up with Dr. Aguilar at [facility], CTS at [facility] that specialized in cardiac transplantation. She may be refferred by Dr. Aguilar since she will be following up there. PLAN: Plan VTE prophylaxis: LMWH. Charges/Coding Visit Charges Inpatient E&M: 23169 Subs Hosp L2
[2024-07-22] MEDS: Pantoprazole Sodium 40 MG Tablet PO ×2 (09:36→22:26)
[2024-07-22] MEDS: Carvedilol 3.125 MG TABLET PO ×2 (09:36→17:38)
[2024-07-22] MEDS: ALPRAZolam 0.5 MG Tablet PO ×2 (09:36→22:27)
[2024-07-22] MEDS: Magnesium Chloride 64 MG Delay Rel.Tablet 128 MG PO ×2 (09:36→22:26)
[2024-07-22] MEDS: Spironolactone 25 MG Tablet 12.5 MG PO (09:37)
[2024-07-22] MEDS: Potassium Chloride Oral Tablet 20 MEQ PO ×2 (09:37→17:39)
[2024-07-22] MEDS: Lactobacillis Acidophilus 1 CAP PO ×4 (09:38→22:27)
[2024-07-22] MEDS: predniSONE 20 MG Tablet 40 MG PO ×2 (09:38→17:38)
[2024-07-22] MEDS: Lisinopril 5 MG Tablet PO ×2 (09:39→22:27)
[2024-07-22] MEDS: Furosemide 40 MG Tablet PO ×2 (09:40→17:39)
[2024-07-22] MEDS: Empagliflozin 10 MG Tablet PO (09:40)
--- NOTE | 2024-07-22 11:57 | PN.CARD_ITS ---
Subjective Subjective Continues to complain of abdominal pain. Also shortness of breath with exertion. Objective Data Vital Signs: Vital Signs Temp Pulse Resp BP Pulse Ox O2 Del Method 97.3 F L 55 L 18 124/75 H 99 Room Air 07/22/24 08:00 07/22/24 08:00 07/22/24 08:00 07/22/24 08:00 07/22/24 08:00 07/22/24 08:10 Oxygen Delivery Method Room Air Weight: 135 lb 12.876 oz Body Mass Index (BMI) 23.3 Intake & Output: Intake and Output for Last 24 Hours 07/20/24 07/21/24 07/22/24 23:59 23:59 23:59 Intake Total 500 / 500 900 / 900 Balance 500 / 500 900 / 900 Lab / Micro Data 07/22/24 04:10 07/22/24 04:10 Labs: Laboratory Results - last 24 hr 07/22/24 04:10: WBC 14.9 H, RBC 3.96 L, Hgb 12.7, Hct 39.1, MCV 98.7, MCH 32.1 H , MCHC 32.5, RDW Std Deviation 51.6 H, RDW Coeff of Damon 14.1, Plt Count 280, MPV 11.1, Immature Gran % (Auto) 1.200 H, Neut % (Auto) 87.1 H, Lymph % (Auto) 6.4 L , [place] % (Auto) 4.8, Eos % (Auto) 0.2, Baso % (Auto) 0.3, Absolute Neuts (auto) 13.0 H, Absolute Lymphs (auto) 0.95, Nucleated RBC % 0, Sodium 135, Potassium 4.0, Chloride 100, Carbon Dioxide 20.0 L, Anion Gap 15, BUN 29 H, Creatinine 1.05, Estim Creat Clear Calc 59.04, Est GFR (MDRD) Non-Af 67, BUN/Creatinine Ratio 27.6 H, Glucose 112 H, Calcium 9.1 Cardiology Labs/Tests 07/22/24 04:10: WBC 14.9 H, RBC 3.96 L, Hgb 12.7, Hct 39.1, MCV 98.7, MCH 32.1 H , MCHC 32.5, Plt Count 280, MPV 11.1, Immature Gran % (Auto) 1.200 H, Neut % (Auto) 87.1 H, Lymph % (Auto) 6.4 L, [place] % (Auto) 4.8, Eos % (Auto) 0.2, Baso % (Auto) 0.3, Absolute Neuts (auto) 13.0 H, Nucleated RBC % 0, Sodium 135, Potassium 4.0, Chloride 100, Carbon Dioxide 20.0 L, Anion Gap 15, BUN 29 H, Creatinine 1.05, Est GFR (MDRD) Non-Af 67, BUN/Creatinine Ratio 27.6 H, Glucose 112 H, Calcium 9.1 Rhythm: EKG: ECHO: Stress Test: Cardiac Cath: PCI: CT Surgery: Holter monitor: EPS: PPM: CXR: Chest CT Scan: Radiography Diagnostic Testing: Radiology Impression Echocardiogram 07/21/24 00:48 Interpretation Summary Mild concentric left ventricular hypertrophy. Generalized LV hypokinesis. Estimated LVEF 35%. Stage II diastolic dysfunction. 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 The left atrium is severely enlarged. Suspect vegetation on the atrial side of the ICD wire. Similar finding noted however on reviewing echocardiogram from 2023. Consider MICKI for further evaluation if clinically indicated. Mild (1+) mitral valve insufficiency. Moderate (2+) tricuspid valve insufficiency. Right ventricular systolic pressure estimated to be 77 mmHg. Severe pulmonary hypertension. Ordering Physician: Nito Umaña Referring Physician: Dex Wilkinson Performed By: Maru Kothari [facility] Physical Exam Narrative Comfortable. No apparent distress. Heart sounds 1 and 2 noted. S3. Chest clear to auscultation bilaterally. Alert oriented x 3. No ankle edema. Assessment & Plan Assessment/Plan (1) Acute systolic congestive heart failure, NYHA class 3: PLAN: LVEF 35%. Diuretics. Low-dose beta-blockers. ACEI. Spironolactone. SGLT2 inhibitor. (2) History of hypertrophic cardiomyopathy: PLAN: History of familial hypertrophic cardiomyopathy. LVEF down now. Echocardiogram with suspicion of LV noncompaction as well. Will recommend doing a cardiac MRI as an outpatient for further evaluation. (3) Presence of implantable cardioverter-defibrillator (ICD): PLAN: Echocardiogram suspicious for possible vegetation on the ICD lead in the right atrial part. However same noted on review of echocardiogram from 2023. Patient denies any fevers or chills. Doubt endocarditis clinically. Recommend checking blood cultures. Possible MICKI for further evaluation. (4) Severe pulmonary hypertension: PLAN: History of pulmonary embolism. Combined systolic and diastolic congestive heart failure. Diuretics. Recommend referral to pulmonary hypertension clinic as outpatient. (5) Hypertension: PLAN: Beta-blockers, ACEI, diuretics. (6) Hemorrhagic gastritis: PLAN: On pantoprazole. DC aspirin.
[2024-07-22 14:00] VITALS: BP 108/73; PULSE 65; RESP 18; TEMP 36.9; O2SAT 99
[2024-07-22] MEDS: Lidocaine 5% Patch 1 PATCH TOPICAL (15:47)
[2024-07-22 22:25] VITALS: BP 130/72; PULSE 60; RESP 16; TEMP 36.1; O2SAT 100
[2024-07-22] MEDS: Zolpidem Tartrate 5 MG Tablet PO (22:27)
[2024-07-23] VITALS (7 sets, daily range): BP systolic 109–145; BP diastolic 62–108; PULSE 60–69; RESP 17–19; TEMP 36.2–36.6; O2SAT 97–99; BMI 22.6
[2024-07-23] MEDS: HYDROmorphone 0.5 MG/0.5 ML SYRINGE IV ×5 (01:50→18:42)
[2024-07-23 05:34] LABS: Absolute Lymphocyte Count 0.52 X10^3/uL (0.83-4.51); Absolute Neutrophil Count 19.1 X10^3/uL (2.0-7.7); Basophil# 0.04 X10^3/uL; Basophil% 0.2 % (0-1); Hematocrit 45.5 % (37-47); Hemoglobin 15.2 g/dL (12.0-15.0); Lymphocyte # 0.52 X10^3/ul (0.83-4.51); Lymphocyte % 2.5 % (19-41); Mean Corp Hgb Conc 33.4 g/dL (32-36); Mean Corpuscular Hgb 32.4 pg (27.0-32.0); Mean Platelet Vol. 10.6 fl (6.2-12.0); Monocyte# 0.51 X10^3/uL; Monocyte% 2.5 % (0-10); NRBC Flagged by Analyzer 0 % (0-5); Neutrophil # 19.13 X10^3/uL (2.7-7.7); Neutrophil % 93.3 % (47-70); POSITIVE DIFFERENTIAL YES; Platelet Count 372 K/mm3 (150-450); RBC Distribution Width CV 13.9 % (11.6-14.6); RBC Distribution Width SD 49.4 fl (35.1-43.9); Red Blood Count 4.69 M/mm3 (4.2-5.4); White Blood Count 20.5 K/mm3 (4.4-11.0)
[2024-07-23] MEDS: Sucralfate 1 GM Tablet PO ×2 (05:58→14:24)
[2024-07-23] MEDS: 0.9% Saline Lock 10 ML Syringe IV ×4 (05:58→21:37)
[2024-07-23] MEDS: Acetaminophen 500 MG Tablet 1000 MG PO ×3 (05:58→21:35)
[2024-07-23 06:17] LABS: Anion Gap 13 (5-15); BUN 30 mg/dL (4-19); BUN/Creat Ratio 32.9 RATIO (10-20); Calcium,Total 9.4 mg/dL (7.6-11.0); Carbon Dioxide 23.1 mmol/L (21.0-32.0); Chloride 100 mmol/L (98-108); Creatinine, Serum 0.93 mg/dL (0.70-1.20); EST Glomerular Filtration Rate 78 (>60); Estimated Creatinine Clearance 66.66 ml/min (50-250); Glucose 99 mg/dL (70-99); Potassium 4.6 mmol/L (3.3-5.1); Sodium Level 136 mmol/L (133-145)
--- NOTE | 2024-07-23 07:49 | PCM.PN.HOSP ---
Reason for Visit Reason for Visit: Diagnoses Elevated white blood cell count, unspecified (07/21/24) Essential (primary) hypertension (07/21/24) Pulmonary hypertension, unspecified (07/21/24) Acute and subacute infective endocarditis (07/21/24) Other hypertrophic cardiomyopathy (07/21/24) Unspecified systolic (congestive) heart failure (07/21/24) Acute systolic (congestive) heart failure (07/21/24) Unspecified diastolic (congestive) heart failure (07/21/24) Heart failure, unspecified (07/21/24) Gastritis, unspecified, with bleeding (07/21/24) Unspecified abdominal pain (07/21/24) Nausea with vomiting, unspecified (07/21/24) Other specified abnormal findings of blood chemistry (07/21/24) Personal history of other diseases of the circulatory system (07/21/24) Presence of cardiac pacemaker (07/21/24) Presence of automatic (implantable) cardiac defibrillator (07/21/24) Subjective Subjective Abdominal pain post enoxaparin injection. Objective Data Objective Data Vital Signs: Vital Signs Temp Pulse Resp BP Pulse Ox O2 Del Method 36.6 C 63 18 145/108 H 99 Room Air 07/23/24 07:45 07/23/24 07:45 07/23/24 07:45 07/23/24 07:45 07/23/24 07:45 07/23/24 07:45 Oxygen Delivery Method Room Air Weight: 59.8 kg Body Mass Index (BMI) 22.6 Intake & Output: Intake and Output for Last 24 Hours 07/21/24 07/22/24 07/23/24 23:59 23:59 23:59 Intake Total 900 / 900 1999 Balance 900 / 900 1999 Lab / Micro Data 07/23/24 04:56 07/23/24 04:56 Labs: Laboratory Results - last 24 hr 07/23/24 04:56: WBC 20.5 H, RBC 4.69, Hgb 15.2 H, Hct 45.5, MCV 97.0, MCH 32.4 H, MCHC 33.4, RDW Std Deviation 49.4 H, RDW Coeff of Damon 13.9, Plt Count 372, MPV 10.6, Immature Gran % (Auto) 1.500 H, Neut % (Auto) 93.3 H, Lymph % (Auto) 2.5 L, [place] % (Auto) 2.5, Eos % (Auto) 0.0, Baso % (Auto) 0.2, Absolute Neuts (auto) 19.1 H, Absolute Lymphs (auto) 0.52 L, Nucleated RBC % 0, Sodium 136, Potassium 4.6, Chloride 100, Carbon Dioxide 23.1, Anion Gap 13, BUN 30 H, Creatinine 0.93, Estim Creat Clear Calc 66.66, Est GFR (MDRD) Non-Af 78, BUN/Creatinine Ratio 32.9 H, Glucose 99, Calcium 9.4 Physical Exam Const alert and no apparent distress Constitutional Narrative: up in bed. afebrile. no respiratory distress. no conversational dyspnea. HEENT head/scalp atraumatic and moist oral mucous membranes Resp normal respiratory effort and no retractions Neuro Sensorium / Orientation: awake and alert Assessment & Plan Assessment/Plan (1) HFrEF (heart failure with reduced ejection fraction): PLAN: acute Echo from 09/13/23: EF 50%, PASP 58mmHg. Now 35% with stage II DD. Severely enlarged LA. RVSP 77mmHg. CW severe pulmonary hypertension. s/p single-lead AICD CTA chest showed bilateral pleural effusions On IV furosemide 20 IV BID. Continue carvedilol 3.125 BID, empagliflozin 10/d, lisinopril 5 BID, spironolactone 12.5/d FRANCO Bishop. Recommending transfer to tertiary facility. (2) Elevated troponin: PLAN: minimal elevation. I doubt primary cardiac ischemia. Either baseline levels v demand ischemia from CHF in pt with hypertrophic cardiomyopathy. (3) Vegetation of heart valve: PLAN: Not valvular, but on ICD wire (atrial side). Previously noted in 2023. FRANCO Clay, who recommend blood cultures to rule out infective endocarditis. Follow up blood cultures, so far negative, however, if positive, will need MICKI. FRANCO Clay and said pt would require GI clearance prior to undergoing a MICKI. FRANCO Myles, who will be consulted. Ok for anticoagulation. (4) Pulmonary hypertension: PLAN: suspect group 2. PE ruled on CTA unlikely group 1 component, may benefit from referral to pulmonary hypertension specialist. Pt states that she plans on following up with Dr. Aguilar at [facility], CTS at [facility] that specialized in cardiac transplantation. She may be refferred by Dr. Aguilar since she will be following up there. PLAN: Plan Gastritis: noted on EGD from 07/12. Biopsy performed (still pending result). Continue pantoprazole. Terminal ileum congestion: from colonoscopy on 07/12. on prednisone. Biopsy performed (still pending result). VTE prophylaxis: LMWH. Greater than 60 minutes of which greater than 50% of the time was discussing with the patient and Drs. Bishop and Friend. Present during phone call with Dr. Bishop and her sister. Patient has been accepted to [facility], awaiting on bed availablily. Charges/Coding Visit Charges Inpatient E&M: 28961 [facility] Hosp L3
[2024-07-23] MEDS: Carvedilol 3.125 MG TABLET PO ×2 (07:57→16:52)
[2024-07-23] MEDS: oxyCODONE 5 MG Tablet PO ×2 (07:57→22:44)
[2024-07-23] MEDS: Potassium Chloride Oral Tablet 20 MEQ PO ×2 (07:57→16:52)
[2024-07-23] MEDS: predniSONE 20 MG Tablet 40 MG PO ×2 (07:57→16:52)
--- NOTE | 2024-07-23 08:26 | PN.CARD_ITS ---
Subjective Subjective Patient continues to complain of PND when lying flat. She also has severe abdominal discomfort radiating up into the her lower thorax. She has a history of a EGD done 07/12/2024 showing hemorrhagic gastritis. Biopsies from the EGD are pending. The patient had a transthoracic echo that was suggestive of a mass on the ICD RV lead. This is a single lead device. However, there was an indication of a similar image on the previous transthoracic echo from September 2023. Objective Data Vital Signs: Vital Signs Temp Pulse Resp BP Pulse Ox O2 Del Method 97.8 F 63 18 145/108 H 99 Room Air 07/23/24 07:45 07/23/24 07:45 07/23/24 07:45 07/23/24 07:45 07/23/24 07:45 07/23/24 07:45 Oxygen Delivery Method Room Air Weight: 131 lb 13.383 oz Body Mass Index (BMI) 22.6 Intake & Output: Intake and Output for Last 24 Hours 07/21/24 07/22/24 07/23/24 23:59 23:59 23:59 Intake Total 900 / 900 1999 Balance 900 / 900 1999 Lab / Micro Data Attestation: I reviewed the patient's lab results. 07/23/24 04:56 07/23/24 04:56 Labs: Laboratory Results - last 24 hr 07/23/24 04:56: WBC 20.5 H, RBC 4.69, Hgb 15.2 H, Hct 45.5, MCV 97.0, MCH 32.4 H , MCHC 33.4, RDW Std Deviation 49.4 H, RDW Coeff of Damon 13.9, Plt Count 372, MPV 10.6, Immature Gran % (Auto) 1.500 H, Neut % (Auto) 93.3 H, Lymph % (Auto) 2.5 L , [place] % (Auto) 2.5, Eos % (Auto) 0.0, Baso % (Auto) 0.2, Absolute Neuts (auto) 19.1 H, Absolute Lymphs (auto) 0.52 L, Nucleated RBC % 0, Sodium 136, Potassium 4.6, Chloride 100, Carbon Dioxide 23.1, Anion Gap 13, BUN 30 H, Creatinine 0.93, Estim Creat Clear Calc 66.66, Est GFR (MDRD) Non-Af 78, BUN/Creatinine Ratio 32.9 H, Glucose 99, Calcium 9.4 Rhythm Strip Rhythm Strip: Sinus Rhythm Rate: 52 Cardiology Labs/Tests 07/23/24 04:56: WBC 20.5 H, RBC 4.69, Hgb 15.2 H, Hct 45.5, MCV 97.0, MCH 32.4 H , MCHC 33.4, Plt Count 372, MPV 10.6, Immature Gran % (Auto) 1.500 H, Neut % (Auto) 93.3 H, Lymph % (Auto) 2.5 L, [place] % (Auto) 2.5, Eos % (Auto) 0.0, Baso % (Auto) 0.2, Absolute Neuts (auto) 19.1 H, Nucleated RBC % 0, Sodium 136, Potassium 4.6, Chloride 100, Carbon Dioxide 23.1, Anion Gap 13, BUN 30 H, Creatinine 0.93, Est GFR (MDRD) Non-Af 78, BUN/Creatinine Ratio 32.9 H, Glucose 99, Calcium 9.4 Rhythm: EKG: ECHO: Stress Test: Cardiac Cath: PCI: CT Surgery: Holter monitor: EPS: PPM: CXR: Chest CT Scan: Physical Exam Narrative Patient in moderate distress holding her upper abdomen. Ultrasound of the lower extremities ongoing. Const alert and oriented x3 HEENT normocephalic Eyes EOMs intact bilaterally Neck no JVD Neck Narrative: No obvious JVD at 45 degrees. Patient complains of a fullness in her neck and reports that her facial swelling has resolved Chest Chest: right pectoral incision Resp normal respiratory effort and clear to auscultation bilaterally Cardio Rate: regular rate Rhythm: regular rhythm Heart Sounds: S1 normal and S2 normal; Negative for click, gallop or murmur GI GI Narrative: Tense patient reports she sleeps about 2 hours after pain meds and then wakes up from the pain. Extremity no pedal edema Neuro Neuro Narrative: Alert and oriented x 3 Psych mental status grossly normal Assessment & Plan Assessment/Plan (1) HFrEF (heart failure with reduced ejection fraction): PLAN: Patient has a history of familial hypertrophic cardiomyopathy. She reports that she has not had an ICD firing. Her ICD has been in place for several years. At one point in time she did have inappropriate shocks related to lead failure which was replaced. The patient does not tolerate she has actually been in tolerate of almost all antihypertensives. Currently she is on carvedilol 3.125 mg twice daily Lasix 40 mg twice daily potassium replacement and spironolactone 12.5 mg daily. Her NT?proBNP was 6400 on admission. The patient also has a drop in her LV ejection fraction from 50% September 2023 down to 35% on the transthoracic echo this admission. Will continue to monitor her blood pressure heart rate and response to the medications. I talked to the patient's sister on speaker phone with the patient in the room. The patient's symptoms are almost identical to how her sister deteriorated with her familial cardiomyopathy that led to her transplant. Neither 1 ever had lower extremity edema they both had elevated BNP's with pulmonary edema and PND. They also both had abdominal discomfort with their heart failure. The patient reminds me that this is the same way that her father presented as well. Given this deterioration of her ejection fraction from 50% in September 2023 down to 35% and progression of her pulmonary hypertension from a PA pressure of 58 up to 77 I feel that we should be aggressive about evaluating the patient for destination therapy for her heart failure. She has been intolerant of multiple medications in the past. However she is currently tolerating the carvedilol and Lasix as well as frontal lactone during this admission. I discussed her situation with Dr. Zambrano at the [facility] and he has agreed to take the patient in transfer. The patient was agreeable with the transfer and I discussed this with her and her sister in detail. The complicating situation is his recent diagnosis of hemorrhagic gastritis, the questionable vegetation on her single-lead ICD device in the right atrium, and her increasing white blood cell count. The patient had blood cultures drawn yesterday they have failed to grow anything as of this morning. The patient does have a history of having her device replaced due to a fractured wire in the past. And is currently located on her right infraclavicular area. (2) Presence of implantable cardioverter-defibrillator (ICD): PLAN: The patient has an ICD in place in the right infraclavicular area. This is monitored with the [facility]. (3) Hemorrhagic gastritis: QUALIFIERS: Chronicity: unspecified Gastritis type: unspecified gastritis Qualified Code(s): K29.71 - Gastritis, unspecified, with bleeding PLAN: Patient's EGD done 07/12/2024 showed significant hemorrhagic gastritis. She is on Carafate but continues to have significant abdominal pains. Hemoglobin is stable white blood cell count is elevated to 20,000 today. (4) Hypertension: QUALIFIERS: Hypertension type: primary hypertension Qualified Code(s): I10 - Essential (primary) hypertension PLAN: Patient's blood pressure elevated despite the Coreg and spironolactone. However she is in significant pain from her abdominal discomfort. (5) Pulmonary hypertension: PLAN: On her September 2023 echocardiogram pulmonary artery pressure was estimated at 58. On the exam of this admission the transthoracic echo showed a pulmonary artery pressure 77 mmHg. PLAN: Plan 1. Will continue with current medical therapy for her LV dysfunction. 2. Await final diagnosis and further treatment recommendations from GI. 3. Will discuss need for transesophageal echo with Dr. Santamaria. Will need to make certain GI agrees with instrumentation of the gastric fundus to perform a MICKI. 4. Await results of the blood cultures. 5. Will arrange for transfer to the [facility] with her heart failure service. Charges/Coding Visit Charges Inpatient E&M: 32341 [facility]s Hosp L3
[2024-07-23] MEDS: Pantoprazole Sodium 40 MG Tablet PO ×2 (10:00→21:35)
[2024-07-23] MEDS: Lisinopril 5 MG Tablet PO ×2 (10:00→21:34)
[2024-07-23] MEDS: Magnesium Chloride 64 MG Delay Rel.Tablet 128 MG PO ×2 (10:00→21:35)
[2024-07-23] MEDS: Furosemide 40 MG Tablet PO ×2 (10:00→16:52)
[2024-07-23] MEDS: Spironolactone 25 MG Tablet 12.5 MG PO (10:01)
[2024-07-23] MEDS: Enoxaparin 40 MG/0.4 ML Syringe SC (10:01)
[2024-07-23] MEDS: ALPRAZolam 0.5 MG Tablet PO (10:02)
[2024-07-23] MEDS: Lactobacillis Acidophilus 1 CAP PO ×4 (10:02→21:34)
[2024-07-23] MEDS: Empagliflozin 10 MG Tablet PO (10:02)
[2024-07-23] MEDS: Enoxaparin 60 MG/0.6 ML Syringe SC (16:52)
[2024-07-23] MEDS: Ondansetron 4 MG/2 ML Vial IV (21:44)
[2024-07-23] MEDS: Zolpidem Tartrate 5 MG Tablet PO (21:44)
--- NOTE | 2024-07-23 22:49 | EKG12_ITS ---
Test Reason : CP Blood Pressure : */* mmHG Vent. Rate : 64 BPM Atrial Rate : 64 BPM P-R Int : 158 ms QRS Dur : 88 ms QT Int : 418 ms P-R-T Axes : 11 -80 78 degrees QTcB Int : 431 ms Normal sinus rhythm Biatrial enlargement Left anterior fascicular block Left ventricular hypertrophy ( Sunny product ) Nonspecific ST and T wave abnormality Abnormal ECG When compared with ECG of 20-Jul-2024 19:43, Criteria for Septal infarct are no longer Present Confirmed by Curt Bishop ([id number]), editor farm journal SANDEE GARCIA ([id number]) on 07/24/2024 11:44:28 AM Referred By: Confirmed By: Curt Bishop
[2024-07-24] MEDS: HYDROmorphone 0.5 MG/0.5 ML SYRINGE IV ×3 (00:09→08:15)
[2024-07-24] MEDS: 0.9% Saline Lock 10 ML Syringe IV ×3 (00:09→08:15)
[2024-07-24] MEDS: ALPRAZolam 0.5 MG Tablet PO (04:13)
[2024-07-24 04:20] VITALS: BP 114/78; PULSE 59; RESP 18; TEMP 36.4; O2SAT 98
[2024-07-24 06:00] VITALS: BMI 22.8
[2024-07-24 07:41] VITALS: BP 126/79; PULSE 62; RESP 17; TEMP 36.4; O2SAT 100
[2024-07-24] MEDS: Sucralfate 1 GM Tablet PO (07:45)
[2024-07-24 08:20] VITALS: O2SAT 96
--- NOTE | 2024-07-24 08:39 | DS.PCM_ITS ---
Providers Date of Admission: 07/21/24 Primary Care Physician: Dr. Dex Wilkinson MD Consultations 07/21/24 00:48 Consult: Cardiology [facility]ine [facility] Reason for Consult: AE CHF, Elevated Troponin and Near Syncope with Hypertrophic CM EMERGENT Consult: No Notified: Yes Date Notified: 07/21/24 Time Notified: 06:52 Method of Notification: Text Method of Consult:: In-Person 07/23/24 08:42 Consult: Gastroenterology Routine Consulting Provider: [facility] Reason for Consult: gastritis. clearance for possible MICKI. EMERGENT Consult: No Notified: Yes Date Notified: 07/23/24 Time Notified: 08:42 Method of Notification: Verbal Reason For Visit: AE CHF, NEAR SYNCOPE, ELEVATED TROPONIN, ELEVATED Diagnosis Discharge Diagnosis (1) HFrEF (heart failure with reduced ejection fraction): Status: Acute Code(s): I50.20 - Unspecified systolic (congestive) heart failure Plan: acute Echo from 09/13/23: EF 50%, PASP 58mmHg. Now 35% with stage II DD. Severely enlarged LA. RVSP 77mmHg. CW severe pulmonary hypertension. s/p single-lead AICD CTA chest showed bilateral pleural effusions On IV furosemide 20 IV BID. Continue carvedilol 3.125 BID, empagliflozin 10/d, lisinopril 5 BID, spironolactone 12.5/d FRANCO Bishop. Recommending transfer to tertiary facility. (2) Elevated troponin: Status: Acute Code(s): R79.89 - Other specified abnormal findings of blood chemistry Plan: minimal elevation. I doubt primary cardiac ischemia. Either baseline levels v demand ischemia from CHF in pt with hypertrophic cardiomyopathy. (3) Vegetation of heart valve: Status: Acute Code(s): I33.0 - Acute and subacute infective endocarditis Plan: Not valvular, but on ICD wire (atrial side). Previously noted in 2023. FRANCO Clay, who recommend blood cultures to rule out infective endocarditis. Follow up blood cultures, so far negative, however, if positive, will need MICKI. FRANCO Clay and said pt would require GI clearance prior to undergoing a MICKI. FRANCO Myles, who will be consulted. Ok for anticoagulation. (4) Pulmonary hypertension: Status: Acute Code(s): I27.20 - Pulmonary hypertension, unspecified Plan: suspect group 2. PE ruled on CTA unlikely group 1 component, may benefit from referral to pulmonary hypertension specialist. Pt states that she plans on following up with Dr. Aguilar at [facility], CTS at [facility] that specialized in cardiac transplantation. She may be refferred by Dr. Aguilar since she will be following up there. Plan Gastritis: noted on EGD from 07/12. Biopsy performed (still pending result). Continue pantoprazole. Terminal ileum congestion: from colonoscopy on 07/12. on prednisone. Biopsy performed (still pending result). VTE prophylaxis: LMWH. Greater than 60 minutes of which greater than 50% of the time was discussing with the patient and Drs. Bishop and Friend. Present during phone call with Dr. Bishop and her sister. Patient has been accepted to [facility], awaiting on bed availablily. Medications at Discharge Home Medications alprazolam 0.5 mg tablet 0.5 mg PO BID 11/13/21 zolpidem 10 mg tablet 10 mg PO QHS 11/13/21 albuterol sulfate 90 mcg/actuation aerosol inhaler 1 inh inhalation PRN 07/26/23 dicyclomine 20 mg tablet 20 mg PO TID PRN abdominal pain #30 tabs 07/03/24 pantoprazole 20 mg tablet,delayed release 20 mg PO BID 07/10/24 sucralfate 1 gram tablet (Carafate) 1 g PO BIDCM 07/10/24 prednisone 20 mg tablet 40 mg PO Q12H 07/20/24 Hospital Course Operations None Procedures 2-D Echocardiogram Summary of Care Provided Minutes Spent on Discharge: 32 Hospital Course: Patient mated with acute heart failure exacerbation. Patient was started on IV furosemide. Patient had an echocardiogram that showed reduced ejection fraction as well as increased pulmonary artery pressures. There was noted to be a vegetation on her echo but that was present back in September of last year. Not felt to be infective endocarditis but patient did have blood cultures performed on the that are negative thus far on the . Concern could be also a clot so it is recommend having full dose anticoagulation. Patient has a history of hypertrophic cardiomyopathy and has an AICD. Patient has a has a family history of that with a sister and father who both underwent heart transplants for the same. But given her worsening heart failure and the concern that she may need eventually a heart transplant it was recommended patient be transferred to tertiary facility with cardiology and evaluation to see if she would be a candidate for an eventual heart transplant. So that is the reason [facility] was selected as a facility for transfer. Weight / BMI Weight Weight: 60.5 kg Body Mass Index (BMI) 22.8 ABG / Lab / Microbiology Data 07/23/24 04:56 07/23/24 04:56 Radiography Diagnostic Testing: Radiology Impression Venous Doppler Study 07/21/24 00:48 Interpretation Summary Deep veins of the bilateral lower extremities are patent and compressible segmentally. There is no evidence of bilateral lower extremity deep vein thrombosis. The bilateral great saphenous veins appear patent and compressible segmentally. Ordering Physician: Nito Umaña Performed By: Wei Kessler RVT D/C Instructions DC O2, CPAP, BIPAP Needs Home O2 Discharge instructions: No Meaningful Use Info Meaningful Use Meaningful Use Diagnoses (Choose all that apply): CHF CHF MARIA T/ARB ordered at discharge?: Yes Documented LVEF (%): 35 Ischemic Stroke Statin Dosing Therapy Reference: STATIN DOSE THERAPY REFERENCE: * Patients > 75 years receive moderate or high dose statin therapy. * Patients 75 years or YOUNGER should receive HIGH intensity statin dose unless contraindicated. You will be required to document reason for non-treatment if statin daily dose does not meet guidelines. HIGH DOSE STATIN THERAPY DAILY Atorvastatin > than or = to 40 mg Rosuvastatin > than or = to 20 mg Amlodipine + Atorvastatin > than or = to 2.5/40 mg Ezetimibe + Simvastatin 10/80 mg Simvastatin 80mg Discharge Plan Admission Admit Date/Time: 07/21/24 00:26 Primary Reason for Your Visit: Heart failure Attending Provider: Willian Ovalles Primary Care Provider: Dex Wilkinson Consulting Providers: Filemon Subramanian; Chetan Grant; Saman Clay; Augustin Potts; Don Victoria; Jose Francisco Santamaria; Cleo Huerta; Curt Bishop; Sarita Flores; Vincent Hdz; Cliff Car; Bogdan Bates NP; Xochitl Bourne PA; Grover Guerra; Nito Umaña Discharge Orders/Prescriptions Prescriptions: No Action albuterol sulfate 90 mcg/actuation HFA aerosol inhaler 1 inh inhalation PRN alprazolam 0.5 mg tablet 0.5 mg PO BID Patient Comments: TAKE 1 TABLET BY MOUTH TWICE DAILY zolpidem 10 mg tablet 10 mg PO QHS dicyclomine 20 mg tablet 20 mg PO TID PRN (Reason: abdominal pain) Qty: 30 0RF pantoprazole 20 mg tablet,delayed release (DR/EC) 20 mg PO BID sucralfate [Carafate] 1 gram tablet 1 g PO BIDCM prednisone 20 mg tablet 40 mg PO Q12H Referrals / Follow Up: Dex Wilkinson MD [Primary Care Provider] - Disposition Disposition (needs filled in before D/C Order can be placed): Acute Care Hospital Charges/Coding Visit Charges Inpatient E&M: 78567 Disch Hosp >30min
[2024-07-24] MEDS: Carvedilol 3.125 MG TABLET PO (08:49)
[2024-07-24] MEDS: Potassium Chloride Oral Tablet 20 MEQ PO (08:50)
[2024-07-24] MEDS: predniSONE 20 MG Tablet 40 MG PO (08:50)
[2024-07-24] MEDS: oxyCODONE 5 MG Tablet PO (09:40)
== END 2024-07-24 10:00 | disposition short-term general hospital (02) | DRG 291 ==
LOC: ED 19:43 → PCU 07-21 01:04
PROVIDERS: Admitting Provider Internal Medicine; Emergency Provider Emergency Medicine; PCP Family Medicine
DX: I11.0 Hypertensive heart disease with heart failure (principal); I50.43 Acute on chronic combined systolic (congestive) and diastolic (congestive) heart failure; J90 Pleural effusion, not elsewhere classified; T82.7XXA Infection and inflammatory reaction due to other cardiac and vascular devices, implants and grafts, initial encounter; I27.20 Pulmonary hypertension, unspecified; I42.2 Other hypertrophic cardiomyopathy; K21.9 Gastro-esophageal reflux disease without esophagitis; F17.210 Nicotine dependence, cigarettes, uncomplicated; Z82.49 Family history of ischemic heart disease and other diseases of the circulatory system; R55 Syncope and collapse; Z79.84 Long term (current) use of oral hypoglycemic drugs; Z95.810 Presence of automatic (implantable) cardiac defibrillator; F41.1 Generalized anxiety disorder; Z86.718 Personal history of other venous thrombosis and embolism; Z79.899 Other long term (current) drug therapy; Y71.2 Prosthetic and other implants, materials and accessory cardiovascular devices associated with adverse incidents
CPT/HCPCS: 36415; 71045; 71275; 74177; 80048; 80053; 80061; 80076; 81001; 81025; 83036; 83690; 83735; 83880; 84100; 84443; 84484; 85025; 85379; 87040; 93005; 93306; 93970; 94668; 99252; 99285; Q9967; A4216; G0463; J1940; J2405

== ENCOUNTER → 2024-08-08 | Outpatient (CLI) | payer BC, SELFPAY ==
[2024-08-08 10:13] LABS: Erythrocyte Sedimentation Rate 69 mm/hr (0-30)
[2024-08-08 10:15] LABS: Absolute Lymphocyte Count 1.28 X10^3/uL (0.83-4.51); Basophil# 0.08 X10^3/uL; Basophil% 0.9 % (0-1); Eosinophil# 0.35 X10^3/uL; Eosinophils% 3.8 % (0-5); Hematocrit 44.1 % (37-47); Hemoglobin 14.7 g/dL (12.0-15.0); Lymphocyte # 1.28 X10^3/ul (0.83-4.51); Lymphocyte % 13.9 % (19-41); Mean Corp Hgb Conc 33.3 g/dL (32-36); Mean Corpuscular Volume 95.9 fL (81-99); Mean Platelet Vol. 9.9 fl (6.2-12.0); Monocyte% 5.4 % (0-10); NRBC Flagged by Analyzer 0 % (0-5); Neutrophil # 6.97 X10^3/uL (2.7-7.7); Neutrophil % 75.5 % (47-70); Platelet Count 375 K/mm3 (150-450); RBC Distribution Width CV 13.1 % (11.6-14.6); RBC Distribution Width SD 46.1 fl (35.1-43.9); RET-HE 34.4 pg (30-35); Reticulocyte Count 0.78 % (0.5-1.5); White Blood Count 9.2 K/mm3 (4.4-11.0)
[2024-08-08 10:20] LABS: Prothrombin Time (Protime)PT. 12.8 SECONDS (11.7-14.9)
[2024-08-08 10:39] LABS: Ammonia 36.2 umol/L (11-51)
[2024-08-08 13:18] LABS: ALB/GLOB Ratio 1.1 RATIO (0.9-2.4); AST(SGOT) 43 U/L (<=31); Alanine Aminotransfer ALT/SGPT 37 U/L (<=34); Albumin, Serum 3.9 g/dL (3.5-5.0); Alkaline Phosphatase 155 U/L (35-104); Anion Gap 11 (5-15); BUN 9 mg/dL (4-19); BUN/Creat Ratio 12.1 RATIO (10-20); Calcium,Total 9.7 mg/dL (7.6-11.0); Carbon Dioxide 21.1 mmol/L (21.0-32.0); Chloride 106 mmol/L (98-108); Creatinine, Serum 0.71 mg/dL (0.70-1.20); EST Glomerular Filtration Rate 107 (>60); Ferritin 216 ng/mL (22-378); Globulin 3.4 g/dL (2.2-4.2); Glucose 93 mg/dL (70-99); Potassium 4.2 mmol/L (3.3-5.1); Protein, Total 7.3 g/dL (5.9-8.4); Sodium Level 138 mmol/L (133-145); Total Bilirubin 0.23 mg/dL (0.00-1.30)
[2024-08-08 14:08] LABS: Iron 75 ug/dL (50-170); LDH 258 U/L (84-246)
[2024-08-09 12:21] LABS: Amylase 19 U/L (28-100); Lipase 24 U/L (13-75)
[2024-08-10 16:09] LABS: Albumin 3.4 g/dL (2.9-4.4); Alpha-1-Globulins 0.2 g/dL (0.0-0.4); Alpha-2-Globulins 1.1 g/dL (0.4-1.0); Angiotensin Convert Enzyme 62 U/L (14-82); Ceruloplasmin 42.4 mg/dL (19.0-39.0); Copper, Serum or Plasma 159 ug/dL (80-158); Cytoplasmic Ab (C-ANCA) <1:20 titer (Neg:<1:20); Endomysial Antibody IgA Negative (Negative); Gastrin, Serum 17 pg/mL (0-115); Haptoglobin 373 mg/dL (42-296); IgG, Quant 945 mg/dL (586-1602); Immunoglobulin A 134 mg/dL (87-352); Immunoglobulin E 122 IU/mL (6-495); Immunoglobulin G, Subclass 1 509 mg/dL (248-810); Immunoglobulin G, Subclass 2 168 mg/dL (130-555); Immunoglobulin G, Subclass 3 73 mg/dL (15-102); Immunoglobulin G, Subclass 4 17 mg/dL (2-96); Immunoglobulin M 217 mg/dL (26-217); PROEL- TOTAL PROTEIN 6.9 g/dL (6.0-8.5); Perinuclear Ab (P-ANCA) <1:20 titer (Neg:<1:20); t-Transglutaminase IgA <2 U/mL (0-3)
[2024-08-11 22:06] LABS: Anti-Centromere B Ab <0.2 AI (0.0-0.9); Anti-Chromatin <0.2 AI (0.0-0.9); Anti-Jo <0.2 AI (0.0-0.9); Anti-Scleroderma-70 AB <0.2 AI (0.0-0.9); Anti-dsDNA Ab <1 IU/mL (0-9); Clam <0.10 kU/L (Class 0); Codfish <0.10 kU/L (Class 0); Corn <0.10 kU/L (Class 0); Egg, White <0.10 kU/L (Class 0); Milk (Cow) 0.24 kU/L (Class 0/I); Peanut <0.10 kU/L (Class 0); RNP Ab 0.3 AI (0.0-0.9); SCALLOP <0.10 kU/L (Class 0); SESAME SEED <0.10 kU/L (Class 0); SJOGREN'S Anti-SS-A test < 0.2 AI (0.0-0.9); SJOGREN'S Anti-SS-B test 0.2 AI (0.0-0.9); Shrimp <0.10 kU/L (Class 0); Smith Ab <0.2 AI (0.0-0.9); Soybean <0.10 kU/L (Class 0); Walnut, (Food) <0.10 kU/L (Class 0); Wheat <0.10 kU/L (Class 0)
== END | disposition home or self-care (01) ==
LOC: LAB 09:27
PROVIDERS: PCP Family Medicine; Referring Provider Internal Medicine Gastroenterology; Visit Provider Internal Medicine Gastroenterology
DX: R10.9 Unspecified abdominal pain (principal); I27.20 Pulmonary hypertension, unspecified; K21.9 Gastro-esophageal reflux disease without esophagitis
CPT/HCPCS: 36415; 80053; 82140; 82150; 82164; 82390; 82525; 82728; 82784; 82785; 82787; 82941; 83010; 83036; 83516; 83540; 83615; 83690; 84165; 84443; 85025; 85045; 85610; 85652; 86003; 86037; 86140; 86225; 86235; 86255; 86334

== ENCOUNTER → 2024-08-09 | Outpatient (CLI) | payer BC, SELFPAY ==
[2024-08-10 12:08] LABS: Giardia Lamblia, Stool EIA Negative (Negative)
[2024-08-11 00:07] LABS: Calprotectin, Stool 13 ug/g (0-120)
== END | disposition home or self-care (01) ==
LOC: LABSPEC 10:24
PROVIDERS: Student in an Organized Health Care Education/Training Program; PCP Family Medicine; Referring Provider Internal Medicine Gastroenterology; Visit Provider Internal Medicine Gastroenterology
DX: K58.9 Irritable bowel syndrome, unspecified (principal); R10.9 Unspecified abdominal pain
CPT/HCPCS: 83630; 83993; 87177; 87209; 87329; 87493; 87506

== ENCOUNTER 2024-08-11 10:26 | Emergency (ER) | payer BC, SELFPAY ==
[2024-08-11 10:27] VITALS: BP 123/98; PULSE 79; RESP 16; TEMP 36.6; O2SAT 100; BMI 20.7
--- NOTE | 2024-08-11 10:59 | CT_ITS ---
EXAM: CT Abdomen and Pelvis Without Intravenous Contrast CLINICAL INDICATION: PAIN TECHNIQUE: Axial computed tomography images of the abdomen and pelvis without intravenous contrast. This CT exam was performed using one or more of the following dose reduction techniques: automated exposure control, adjustment of the mA and/or kV according to patient size, and/or use of iterative reconstruction technique. COMPARISON: CT abdomen and pelvis 07/03/2024 FINDINGS: LUNG BASES: Unremarkable. No mass. No consolidation. MEDIASTINUM: Small esophageal hiatal hernia. ABDOMEN: LIVER: Hepatomegaly with fatty infiltration. GALLBLADDER AND BILE DUCTS: Gallbladder is surgically absent. No ductal dilation. PANCREAS: Unremarkable. No ductal dilation. SPLEEN: Unremarkable. No splenomegaly. ADRENALS: Unremarkable. No mass. KIDNEYS AND URETERS: Unremarkable. No stones within either kidney. No hydronephrosis. STOMACH AND BOWEL: Fecal retention in the colon consistent with constipation. Colonic diverticulosis without acute diverticulitis. No obstruction. PELVIS: APPENDIX: Appendectomy. BLADDER: Unremarkable. No stones. REPRODUCTIVE: Unremarkable as visualized. ABDOMEN and PELVIS: INTRAPERITONEAL SPACE: Unremarkable. No free air. No significant fluid collection. BONES/JOINTS: No acute fracture. No dislocation. SOFT TISSUES: Unremarkable. VASCULATURE: Unremarkable. No abdominal aortic aneurysm. LYMPH NODES: Unremarkable. No enlarged lymph nodes. CT/Abdomen/Pelvis without Cont IMPRESSION: 1. Small esophageal hiatal hernia. 2. Hepatomegaly with fatty infiltration. 3. Fecal retention in the colon consistent with constipation. 4. No obstructive uropathy. 5. Colonic diverticulosis without acute diverticulitis. Reading Location: [id number]
[2024-08-11 11:07] LABS: Mucous, Urine 0 SEEN /hpf (<or=2+)
[2024-08-11] MEDS: 0.9% Normal Saline (1000mL) 1,000 ML 999 ML IV (11:08)
[2024-08-11] MEDS: Ondansetron 4 MG/2 ML Vial IV (11:09)
[2024-08-11] MEDS: Ketorolac 30 MG/ML Syringe IV (11:09)
[2024-08-11 11:14] LABS: Absolute Lymphocyte Count 1.19 X10^3/uL (0.83-4.51); Absolute Neutrophil Count 8.4 X10^3/uL (2.0-7.7); Basophil# 0.09 X10^3/uL; Basophil% 0.9 % (0-1); Eosinophils% 1.9 % (0-5); Hematocrit 40.9 % (37-47); Hemoglobin 13.5 g/dL (12.0-15.0); Lymphocyte # 1.19 X10^3/ul (0.83-4.51); Lymphocyte % 11.4 % (19-41); Mean Corpuscular Hgb 31.7 pg (27.0-32.0); Mean Platelet Vol. 9.9 fl (6.2-12.0); Monocyte# 0.51 X10^3/uL; Monocyte% 4.9 % (0-10); NRBC Flagged by Analyzer 0 % (0-5); Neutrophil # 8.39 X10^3/uL (2.7-7.7); Neutrophil % 80.2 % (47-70); Platelet Count 433 K/mm3 (150-450); RBC Distribution Width CV 13.1 % (11.6-14.6); RBC Distribution Width SD 46.5 fl (35.1-43.9); Red Blood Count 4.26 M/mm3 (4.2-5.4); White Blood Count 10.5 K/mm3 (4.4-11.0)
[2024-08-11 11:26] LABS: Color, Urine Yellow (Yellow); Glucose, Dipstick Normal (Normal); Ketone-Dipstick Negative (Negative); Leukocyte Esterase-Dipstick Negative /ul (Negative); Nitrite-Dipstick Negative (Negative); Occult Blood-Urine 50 /ul (Negative); Protein-Dipstick 15 mg/dl (Negative); Urine Bilirubin Dipstick Negative (Negative); Urine Clarity Sl. Cloudy (Clear); Urine Urobilinogen Normal (Normal)
[2024-08-11 11:29] VITALS: BP 132/66; PULSE 78; RESP 14; O2SAT 98
--- NOTE | 2024-08-11 11:30 | ED.VIS.FEGU ---
HPI HPI - Female History of Present Illness Chief Complaint: Flank Pain Narrative Narrative: Chief complaint and HPI: Left flank pain. 43-year-old female with remote history of urolithiasis, GERD presents for evaluation of left flank pain. Onset of symptoms yesterday evening at 11 PM. Pain is not improving which is why she presents for evaluation. Associated symptom is nausea and vomiting. Feels similar to previous kidney stone. Denies any fever, chills, shortness of breath, chest pain, diarrhea, dysuria, hematuria. Review of systems: See HPI Medications: As listed on the chart Allergies: As listed on the chart PFSH: Per chart Vital signs: As listed on the chart. Reviewed. Physical exam: Gen: A&O x3, uncomfortable secondary to pain Head: Normocephalic, atraumatic Eyes: No sclera icterus, conjunctiva clear ENT: Moist mucous membranes Neck: Trachea midline, No JVD CV: RRR, no murmurs, no peripheral edema Resp: Lungs CTA BL, no w/r/c GI: Abd soft, non-distended, non-tender, no r/r/g : No CVA tenderness Musc: Full ROM, no deformity Skin: Warm, dry Neuro: Alert, oriented, grossly intact, sensation intact Psych: Cooperative, appropriate mood and affect [facility] Medical History (Updated 08/11/24 @ 13:[address] 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 Ovarian cancer GERD (gastroesophageal reflux disease) Insomnia Anxiety Collapsed lung History of blood clots Asthma Breast cancer Pacemaker ICD (implantable cardioverter-defibrillator) in place Hypertrophic cardiomyopathy Home Medications ?Medication ?Instructions ?Recorded ?Last Taken ?Type alprazolam 0.5 mg tablet 0.5 mg PO BID 11/13/21 08/10/24 History zolpidem 10 mg tablet 10 mg PO QHS 11/13/21 08/10/24 History dicyclomine 20 mg tablet 20 mg PO TID PRN abdominal pain 07/03/24 Unknown Rx #30 tabs sucralfate 1 gram tablet (Carafate) 1 g PO BIDCM 07/10/24 08/11/24 History metoprolol succinate 25 mg 25 mg PO QDAY 08/08/24 08/10/24 History tablet,extended release 24 hr meloxicam 15 mg tablet 15 mg PO QDAY #30 tabs 08/10/24 08/11/24 Rx pantoprazole 40 mg tablet,delayed 40 mg PO BID 08/11/24 08/11/24 History release Allergy/AdvReac Type Severity Reaction Status Date / Time morphine Allergy Mild Hives Verified 08/11/24 10:27 codeine Allergy Hives Verified 08/11/24 10:27 erythromycin base Allergy PT UNSURE Verified 08/11/24 10:27 OF REACTION Fish Containing Products Allergy Other Verified 08/11/24 10:27 levofloxacin Allergy PT UNSURE Verified 08/11/24 10:27 OF REACTION shellfish derived Allergy Other Verified 08/11/24 10:27 tramadol Allergy Hives Verified 08/11/24 10:27 trimethobenzamide (From Allergy Other Verified 08/11/24 10:27 Tigan) gabapentin (From Neurontin) AdvReac Severe Anaphylaxis Verified 08/11/24 10:27 acetaminophen (From Vicodin) AdvReac Other Verified 08/11/24 10:27 hydrocodone (From Vicodin) AdvReac Other Verified 08/11/24 10:27 metoclopramide (From Reglan) AdvReac Other Verified 08/11/24 10:27 Family History Father Heart disease Idiopathic hypertrophic subaortic stenosis, hypertrophic obstructive cardiomyopathy, congestive heart failure Mother Breast cancer DVT (deep venous thrombosis) Sister Hypertrophic obstructive cardiomyopathy heart transplant at age 34 Cancer Brain, breast, and colon Grandfather Heart disease at age 45 Grandmother CVA (cerebral vascular accident) age 43 Surgical History Presence of implantable cardioverter-defibrillator (ICD) History of cardiac catheterization History of oophorectomy History of cervical polypectomy History of colonoscopy History of tubal ligation History of mastectomy History of cholecystectomy Hx of appendectomy Social History household members: spouse and family housing: house current occupational status: employed Smoking Status: Current every day smoker tobacco type: cigarettes how long ago did patient quit smokin months ago alcohol intake: former substance use type: does not use caffeine: Yes EXAM Physical Exam Const Vital Signs: 08/11/24 10:27 08/11/24 11:29 08/11/24 12:00 Temperature 97.9 F 97.8 F Temperature Source Oral Oral Pulse Rate 79 78 69 Respiratory Rate 16 14 17 Blood Pressure 123/98 H 132/66 H 107/70 Blood Pressure Mean 106 88 82 Pulse Ox 100 98 96 Oxygen Delivery Method Room Air Room Air Room Air 08/11/24 13:00 Temperature Temperature Source Pulse Rate 78 Respiratory Rate 14 Blood Pressure 141/78 H Blood Pressure Mean 99 Pulse Ox 98 Oxygen Delivery Method Room Air MDM MDM MDM Narrative Medical decision making narrative: 43-year-old female with remote history of urolithiasis, GERD presents for evaluation of left flank pain. Onset yesterday evening without improvement. Differential diagnosis includes but is not limited to urolithiasis, UTI, pyelonephritis, electrolyte abnormality. NS bolus, Toradol, Zofran ordered for symptoms. Laboratory workup ordered including CT abdomen pelvis without contrast. CBC without leukocytosis or anemia. BMP unremarkable without electrolyte abnormality or RADHA. UA negative for UTI although positive for blood. CT abdomen pelvis shows small esophageal hiatal hernia. Hepatomegaly with fatty infiltration. Patient states she has a known history of enlarged liver. Fecal retention in the colon consistent with constipation. No urolithiasis. Diverticulosis without diverticulitis. Given patient's symptoms as well as microscopic hematuria of the urine, concern is for possible passed urolithiasis. There is no hydronephrosis. No UTI. On reevaluation patient still endorsing left flank pain. Will give Dilaudid as patient states she cannot have morphine. Will add on liver panel as well as pancreatitis to assess for other etiology. Hepatic panel shows baseline AST transaminitis and elevated alkaline phosphatase. Patient not having any right upper quadrant abdominal pain. Lipase unremarkable. On reevaluation, patient states her pain has resolved. Again, I suspect her pain is secondary to past urolithiasis given blood in her urine as well as her presentation. Recommend following up with PCP. Patient stable to discharge home. Return precautions explained. She confirmed understanding of the plan. Impression: 1. Left flank pain 2. Suspect likely passed urolithiasis Lab Data Labs: Laboratory Results - last 24 hr 08/11/24 08/11/24 08/11/24 10:40 10:55 11:32 WBC 10.5 RBC 4.26 Hgb 13.5 Hct 40.9 MCV 96.0 MCH 31.7 MCHC 33.0 RDW Std Deviation 46.5 H RDW Coeff of Damon 13.1 Plt Count 433 MPV 9.9 Immature Gran % (Auto) 0.700 Neut % (Auto) 80.2 H Lymph % (Auto) 11.4 L [place] % (Auto) 4.9 Eos % (Auto) 1.9 Baso % (Auto) 0.9 Absolute Neuts (auto) 8.4 H Absolute Lymphs (auto) 1.19 Nucleated RBC % 0 Sodium 137 Potassium 4.2 Chloride 103 Carbon Dioxide 22.0 Anion Gap 12 BUN 9 Creatinine 0.74 Estim Creat Clear Calc 83.77 Est GFR (MDRD) Non-Af 103 BUN/Creatinine Ratio 12.1 Glucose 90 Lactic Acid < 1.0 Calcium 9.5 Total Bilirubin 0.29 Direct Bilirubin 0.12 AST 38 H ALT 32 Alkaline Phosphatase 173 H Total Protein 7.2 Albumin 4.0 Globulin 3.1 Lipase 17 Urine Color Yellow Urine Clarity Sl. Cloudy Urine pH 7.0 Ur Specific [place] 1.010 Urine Protein 15 H Urine Glucose (UA) Normal Urine Ketones Negative Urine Occult Blood 50 H Urine Nitrite Negative Urine Bilirubin Negative Urine Urobilinogen Normal Ur Leukocyte Esterase Negative Urine RBC 0-5 SEEN Urine WBC 0-5 SEEN Ur Squamous Epith Cells 0-5 SEEN Urine Bacteria RARE Urine Mucus 0 SEEN Urine Test Negative Radiography Diagnostic Testing: Clinical Impression(s) from Imaging Studies Abdomen/Pelvis CT 08/11/24 10:59 IMPRESSION: 1. Small esophageal hiatal hernia. 2. Hepatomegaly with fatty infiltration. 3. Fecal retention in the colon consistent with constipation. 4. No obstructive uropathy. 5. Colonic diverticulosis without acute diverticulitis. Reading Location: [id number] Discharge Plan Triage Chief Complaint: Flank Pain ED Provider: Gage Sharma Dx/Rx/DC Orders Clinical Impression: Flank pain Instructions: ED Flank Pain, Uncertain Cause Prescriptions: No Action metoprolol succinate 25 mg tablet extended release 24 hr 25 mg PO QDAY meloxicam 15 mg tablet 15 mg PO QDAY Qty: 30 3RF alprazolam 0.5 mg tablet 0.5 mg PO BID Patient Comments: TAKE 1 TABLET BY MOUTH TWICE DAILY zolpidem 10 mg tablet 10 mg PO QHS dicyclomine 20 mg tablet 20 mg PO TID PRN (Reason: abdominal pain) Qty: 30 0RF sucralfate [Carafate] 1 gram tablet 1 g PO BIDCM pantoprazole 40 mg tablet,delayed release (DR/EC) 40 mg PO BID Primary Care Provider: Dex Wilkinson Referrals: Dex Wilkinson MD [Primary Care Provider] - Activity Restrictions/Additional Instructions: Follow-up with primary care physician. At this point no clear reason for your pain however suspect it was likely secondary to passed kidney stone. Return back to the ED if symptoms change or worsen. You received a Toradol here in the emergency department. No ibuprofen until 6 PM given you received Toradol. Print Language: [place] Disposition Disposition: Home, Self Care
[2024-08-11 11:35] LABS: Bacteria RARE /hpf (None Seen); Red Blood Cells-Urine 0-5 SEEN /hpf (0-5); Squamous Epithelial Cells - UA 0-5 SEEN /hpf (5-10); White Blood Cells 0-5 SEEN /hpf (0-5)
[2024-08-11 11:41] LABS: Anion Gap 12 (5-15); BUN 9 mg/dL (4-19); BUN/Creat Ratio 12.1 RATIO (10-20); Calcium,Total 9.5 mg/dL (7.6-11.0); Chloride 103 mmol/L (98-108); Creatinine, Serum 0.74 mg/dL (0.70-1.20); EST Glomerular Filtration Rate 103 (>60); Estimated Creatinine Clearance 83.77 ml/min (50-250); Glucose 90 mg/dL (70-99); Potassium 4.2 mmol/L (3.3-5.1); Sodium Level 137 mmol/L (133-145)
[2024-08-11 11:44] LABS: Internal QC Validated? YES +Cl - CLEAR BKGD; Pregnancy, Urine Negative Negative
[2024-08-11 12:00] VITALS: BP 107/70; PULSE 69; RESP 17; TEMP 36.6; O2SAT 96
[2024-08-11] MEDS: HYDROmorphone 0.5 MG/0.5 ML SYRINGE IV (12:15)
[2024-08-11 13:00] VITALS: BP 141/78; PULSE 78; RESP 14; O2SAT 98
[2024-08-11 13:03] LABS: Lactic Acid < 1.0 mmol/L (0.0-2.0)
[2024-08-11 13:08] LABS: AST(SGOT) 38 U/L (<=31); Alanine Aminotransfer ALT/SGPT 32 U/L (<=34); Alkaline Phosphatase 173 U/L (35-104); Bilirubin, Direct 0.12 mg/dL (0.00-0.30); Globulin 3.1 g/dL (2.2-4.2); Lipase 17 U/L (13-75); Protein, Total 7.2 g/dL (5.9-8.4); Total Bilirubin 0.29 mg/dL (0.00-1.30)
[2024-08-11 13:41] VITALS: BP 105/76; PULSE 64; RESP 16; TEMP 36.6; O2SAT 97
== END 2024-08-11 13:49 | disposition home or self-care (01) ==
PROVIDERS: Emergency Provider Surgery; PCP Family Medicine; Visit Provider Surgery
DX: R10.9 Unspecified abdominal pain (principal); I50.22 Chronic systolic (congestive) heart failure; I42.2 Other hypertrophic cardiomyopathy; K44.9 Diaphragmatic hernia without obstruction or gangrene; R16.0 Hepatomegaly, not elsewhere classified; K57.30 Diverticulosis of large intestine without perforation or abscess without bleeding; R74.8 Abnormal levels of other serum enzymes; R31.29 Other microscopic hematuria; K21.9 Gastro-esophageal reflux disease without esophagitis; F17.210 Nicotine dependence, cigarettes, uncomplicated; Z79.1 Long term (current) use of non-steroidal anti-inflammatories (NSAID); Z79.899 Other long term (current) drug therapy; Z87.442 Personal history of urinary calculi; Z95.810 Presence of automatic (implantable) cardiac defibrillator
CPT/HCPCS: 74176; 80048; 80076; 81001; 81025; 83605; 83690; 85025; 96361; 96374; 96375; 99283; A4216; J2405

== ENCOUNTER 2024-08-20 14:16 | Inpatient (IN) | payer OTHER, SELFPAY ==
[2024-08-20 14:16] VITALS: BP 130/81; BP 140/89; PULSE 61; PULSE 75; RESP 16; RESP 18; TEMP 36.4; O2SAT 100; BMI 22.2
[2024-08-20 14:57] LABS: Absolute Lymphocyte Count 1.29 X10^3/uL (0.83-4.51); Absolute Neutrophil Count 9.9 X10^3/uL (2.0-7.7); Basophil# 0.05 X10^3/uL; Basophil% 0.4 % (0-1); Eosinophil# 0.02 X10^3/uL; Eosinophils% 0.2 % (0-5); Hematocrit 38.1 % (37-47); Hemoglobin 12.6 g/dL (12.0-15.0); Lymphocyte # 1.29 X10^3/ul (0.83-4.51); Lymphocyte % 10.9 % (19-41); Mean Corp Hgb Conc 33.1 g/dL (32-36); Mean Corpuscular Hgb 31.7 pg (27.0-32.0); Mean Platelet Vol. 9.9 fl (6.2-12.0); Monocyte# 0.55 X10^3/uL; Monocyte% 4.6 % (0-10); NRBC Flagged by Analyzer 0 % (0-5); Neutrophil # 9.87 X10^3/uL (2.7-7.7); Neutrophil % 83.3 % (47-70); Platelet Count 373 K/mm3 (150-450); RBC Distribution Width CV 13.6 % (11.6-14.6); RBC Distribution Width SD 47.5 fl (35.1-43.9); Red Blood Count 3.97 M/mm3 (4.2-5.4); White Blood Count 11.9 K/mm3 (4.4-11.0)
[2024-08-20 15:19] LABS: Bacteria 0 SEEN /hpf (None Seen); Mucous, Urine 0 SEEN /hpf (<or=2+)
--- NOTE | 2024-08-20 15:19 | EKG12_ITS ---
Test Reason : SOB Blood Pressure : */* mmHG Vent. Rate : 58 BPM Atrial Rate : 58 BPM P-R Int : 180 ms QRS Dur : 102 ms QT Int : 456 ms P-R-T Axes : -39 -79 74 degrees QTcB Int : 447 ms Unusual P axis, possible ectopic atrial bradycardia Incomplete right bundle branch block Left anterior fascicular block Minimal voltage criteria for LVH, may be normal variant ( [place] product ) Nonspecific T wave abnormality Abnormal ECG Confirmed by Curt Bishop ([id number]), electronic news gathering editor ERICKA BURCH ([id number]) on 08/21/2024 11:14:32 AM Referred By: Confirmed By: Curt Bishop
--- NOTE | 2024-08-20 15:21 | US_ITS ---
PROCEDURE: LIVER 08/20/2024 REASON FOR EXAM: RUQ PAIN, S/P LAP BERNABE COMPARISON: CT from 08/11/2024 FINDINGS: Liver: Enlarged 18.3 cm. Normal in echogenicity. Gallbladder: Surgically removed Common bile duct: Measures 6.9 mm. No intrahepatic biliary dilatation.. Pancreas: Pancreatic ducts appear dilated to 6.5 mm. Otherwise unremarkable Right kidney: Measures 9.4 cm. No hydronephrosis. Trace perihepatic ascites/fluid. US/Liver IMPRESSION: Gallbladder is surgically removed. Trace perihepatic ascites/fluid, nonspecifi c. Hepatomegaly. Nonspecific pancreatic duct dilation to 6.5 mm. Reading Location: [id number]
--- NOTE | 2024-08-20 15:22 | EX.ED.DYSGE1 ---
HPI History of Present Illness Chief Complaint: Abd Pain Informant: patient Narrative Narrative: Patient is a 43-year-old female relatively extensive past medical history including hypertrophic cardiomyopathy, heart failure with reduced ejection fraction, pulmonary hypertension, breast cancer, IBS, ICD, breast and ovarian cancer and prior PE presenting with worsening severe right upper quadrant abdominal pain. Patient notes that she has had dull pain in her upper abdomen for the past 2 months however today around 10 AM it became severe and sharp. She gets waves of sharp pain. It radiates to her shoulder and her back. She has associated nausea despite wearing a scopolamine patch. Denies any vomiting. She had a bowel movement this morning but it was almost white and more firm than normal. She does not report any blood in her stool. She also notes for the past 2 months intermittently she has had dips on exertion and she states she feels that she is drowning after walking for 100 feet. She denies any specific chest pain but does have discomfort in her right side but attributes that to her pain in her right upper quadrant. She denies any alcohol use. She does have a history of kidney stones and states this feels different. Patient follows with Dr. Myles. She states she called the office today and they recommend she come to the ER given her symptoms. She notes that she did have recent exacerbation of heart failure and EF went down to 34% but she states it is back up to 50%. She notes that she is on spironolactone for her heart failure. She has an MRCP ordered for next week by Dr. Myles because of CT which showed hepatomegaly but it also showed a double duct sign. Patient had colonoscopy on 07/12/2024 which showed congested mucosa of the terminal ileum which was biopsied but otherwise normal.EGD the same day showed acute gastritis with hemorrhage and erythematous duodenopathy. GI visit reviewed from 07/31/2024?MRCP ordered to evaluate for postcholecystectomy sphincter of Oddi syndrome, choledocholithiasis or ampullary lesion. 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 Ovarian cancer GERD (gastroesophageal reflux disease) Insomnia Anxiety Collapsed lung History of blood clots Asthma Breast cancer Pacemaker ICD (implantable cardioverter-defibrillator) in place Hypertrophic cardiomyopathy Home Medications ?Medication ?Instructions ?Recorded ?Last Taken ?Type alprazolam 0.5 mg tablet 0.5 mg PO BID 11/13/21 08/20/24 History zolpidem 10 mg tablet 10 mg PO QHS 11/13/21 08/19/24 History sucralfate 1 gram tablet (Carafate) 1 g PO BIDCM 07/10/24 08/20/24 History metoprolol succinate 25 mg 25 mg PO QDAY 08/08/24 08/20/24 History tablet,extended release 24 hr meloxicam 15 mg tablet 15 mg PO QDAY #30 tabs 08/10/24 08/20/24 Rx pantoprazole 40 mg tablet,delayed 40 mg PO BID 08/11/24 08/20/24 History release scopolamine base 1 mg over 3 days 1 patch topical Q3D 08/20/24 08/19/24 History transdermal patch spironolactone 25 mg tablet 25 mg PO DAILY 08/20/24 08/20/24 History Allergy/AdvReac Type Severity Reaction Status Date / Time morphine Allergy Mild Hives Verified 08/20/24 14:17 codeine Allergy Hives Verified 08/20/24 14:17 erythromycin base Allergy PT UNSURE Verified 08/20/24 14:17 OF REACTION Fish Containing Products Allergy Other Verified 08/20/24 14:17 levofloxacin Allergy PT UNSURE Verified 08/20/24 14:17 OF REACTION shellfish derived Allergy Other Verified 08/20/24 14:17 tramadol Allergy Hives Verified 08/20/24 14:17 trimethobenzamide (From Allergy Other Verified 08/20/24 14:17 Tigan) gabapentin (From Neurontin) AdvReac Severe Anaphylaxis Verified 08/20/24 14:17 acetaminophen (From Vicodin) AdvReac Other Verified 08/20/24 14:17 hydrocodone (From Vicodin) AdvReac Other Verified 08/20/24 14:17 metoclopramide (From Reglan) AdvReac Other Verified 08/20/24 14:17 Family History Father Heart disease Idiopathic hypertrophic subaortic stenosis, hypertrophic obstructive cardiomyopathy, congestive heart failure Mother Breast cancer DVT (deep venous thrombosis) Sister Hypertrophic obstructive cardiomyopathy heart transplant at age 34 Cancer Brain, breast, and colon Grandfather Heart disease at age 45 Grandmother CVA (cerebral vascular accident) age 43 Surgical History Presence of implantable cardioverter-defibrillator (ICD) History of cardiac catheterization History of oophorectomy History of cervical polypectomy History of colonoscopy History of tubal ligation History of mastectomy History of cholecystectomy Hx of appendectomy Social History household members: spouse and family housing: house current occupational status: employed Smoking Status: Current every day smoker tobacco type: cigarettes how long ago did patient quit smokin months ago alcohol intake: former substance use type: does not use caffeine: Yes ROS ROS ED Constitutional Constitutional ED: Denies chills or fever(s) Cardiovascular Cardiovascular: Denies chest pain or palpitations Respiratory/Chest Respiratory/Chest: Reports dyspnea on exertion; Denies cough or dyspnea Gastrointestinal Gastrointestinal: Reports abdominal pain and nausea; Denies constipation, diarrhea or vomiting Genitourinary Genitourinary ED: Reports urinary frequency and other Details: Reports chronic urinary frequency associate with being on a diuretic ; Denies dysuria or hematuria Musculoskeletal Musculoskeletal: Reports back pain; Denies arthralgias or myalgias Integumentary Denies rash Neurologic Neurologic: Denies weakness EXAM Physical Exam Const Vital Signs: 08/20/24 14:16 08/20/24 14:16 08/20/24 16:16 Temperature 97.6 F L Temperature Source Oral Pulse Rate 75 61 54 L Respiratory Rate 16 18 14 Blood Pressure 140/89 H 130/81 H 133/86 H Blood Pressure Mean 106 97 101 Pulse Ox 100 100 99 Oxygen Delivery Method Room Air Positive well nourished and well developed Constitutional Narrative: Uncomfortable appearing but no acute distress General Appearance ED: well developed; Negative for pallor HEENT Reports moist mucous membranes Eyes PERRL General Eye ED: Negative for scleral icterus Neck supple and no JVD Chest Wall inspection of chest normal and palpation of chest normal Resp normal respiratory effort Resp Narrative: Slightly coarse breath sounds at the bases bilaterally. No crackles oppression Cardio regular rate and regular rhythm GI Inspection: Negative for abdominal distention Auscultation: normoactive bowel sounds Palpation: soft and tender epigastric and RUQ; Negative for rebound tenderness present Back/Spine no CVA tenderness Extremity normal to inspection General Extremety ED: Negative for edema General Extremity: Negative for edema Neuro oriented x3 Sensorium / Orientation: alert Motor Exam: Negative for general weakness Psych mental status grossly normal Skin no rashes or lesions noted and no wounds General Skin Exam: Negative for jaundice or pallor MDM MDM MDM Narrative Medical decision making narrative: Patient evaluated for worsening abdominal pain today. Has been having ongoing issues with right upper quadrant abdominal pain and has an outpatient MRCP scheduled. Has had prior cholecystectomy. Differential includes choledocholithiasis, ascending cholangitis, pancreatitis, RADHA, obstructive jaundice. She is not having any vomiting and is continue to have bowel movements a low suspicion for bowel obstruction. She also has a significant cardiac history so cardiac etiology/decompensated heart failure is also on the differential. Workup including CBC, BMP, liver panel, lipase and urinalysis is obtained. Patient is about leukocytosis of 11.9 which is nonspecific but no left shift. Her BMP is largely normal with no RADHA or other significant electrolyte abnormalities. Liver panel does show a slight but worsening transaminitis with an elevation of her alkaline phosphatase (182). Her bilirubin is normal so low suspicion for an obstructive process. Lipase is normal suspicion for associated pancreatitis. Urinalysis is normal. Urine is negative. Right upper quadrant ultrasound shows trace. [place] ascites/fluid which is nonspecific and nonspecific pancreatic duct dilation of 6.5 mm. Chest x-ray viewed by myself as well as radiology does show cardiomegaly no other acute process. Patient initially given IV Dilaudid and Zofran for symptom control. She does have improvement with this. She is not given food given her history of heart failure with reduced ejection fraction and clinically she does not appear dehydrated. Her BNP is elevated but downtrending compared to prior hospitalization. Case discussed with TANGELA Pineda on-call. He does agree that patient likely has some type of pathology associated with her biliary duct and needs MRCP and possible ERCP. I did speak with MRI who states that her ICD is MRI compatible but they will have to make arrangements to have it done. Case is discussed with hospitalist for admission, Dr. Larios. Patient is agreeable this plan of care. Patient remains hemodynamically stable in the emergency room. Lab Data Attestation: I reviewed the patient's lab results. Labs: Laboratory Results - last 24 hr 08/20/24 08/20/24 14:43 15:10 WBC 11.9 H RBC 3.97 L Hgb 12.6 Hct 38.1 MCV 96.0 MCH 31.7 MCHC 33.1 RDW Std Deviation 47.5 H RDW Coeff of Damon 13.6 Plt Count 373 MPV 9.9 Immature Gran % (Auto) 0.600 Neut % (Auto) 83.3 H Lymph % (Auto) 10.9 L [place] % (Auto) 4.6 Eos % (Auto) 0.2 Baso % (Auto) 0.4 Absolute Neuts (auto) 9.9 H Absolute Lymphs (auto) 1.29 Nucleated RBC % 0 Sodium 136 Potassium 4.9 Chloride 104 Carbon Dioxide 19.0 L Anion Gap 13 BUN 16 Creatinine 0.97 Estim Creat Clear Calc 63.91 Est GFR (MDRD) Non-Af 74 BUN/Creatinine Ratio 16.5 Glucose 118 H Calcium 9.1 Total Bilirubin 0.67 AST 115 H ALT 103 H Alkaline Phosphatase 182 H NT pro BNP II 3711 H Total Protein 6.6 Albumin 4.0 Globulin 2.7 Albumin/Globulin Ratio 1.5 Lipase 11 L Serum , Qual NEGATIVE Urine Color Straw Urine Clarity Clear Urine pH 6.5 Ur Specific [place] 1.010 Urine Protein 15 H Urine Glucose (UA) Normal Urine Ketones Negative Urine Occult Blood 25 H Urine Nitrite Negative Urine Bilirubin Negative Urine Urobilinogen Normal Ur Leukocyte Esterase Negative Urine RBC 0-5 SEEN Urine WBC 0-5 SEEN Ur Squamous Epith Cells 0-5 SEEN Urine Bacteria 0 SEEN Urine Mucus 0 SEEN Radiography Diagnostic Testing: Clinical Impression(s) from Imaging Studies Liver Ultrasound 08/20/24 15:21 IMPRESSION: Gallbladder is surgically removed. Trace perihepatic ascites/fluid, nonspecific. Hepatomegaly. Nonspecific pancreatic duct dilation to 6.5 mm. Reading Location: [facility] Chest X-Ray 08/20/24 16:00 IMPRESSION: CARDIOMEGALY. NO ACUTE FINDINGS. Reading Location: [id number] Discharge Plan Dx/Rx/DC Orders Clinical Impression: Dilated pancreatic duct, Elevated liver enzymes, Abdominal pain, HFrEF (heart failure with reduced ejection fraction) Disposition Disposition: Acute Care Hospital [facility] Discharge Date/Time: 08/20/24 18:38
[2024-08-20 15:27] LABS: Color, Urine Straw (Yellow); Glucose, Dipstick Normal (Normal); Ketone-Dipstick Negative (Negative); Leukocyte Esterase-Dipstick Negative /ul (Negative); Nitrite-Dipstick Negative (Negative); Occult Blood-Urine 25 /ul (Negative); Protein-Dipstick 15 mg/dl (Negative); Urine Bilirubin Dipstick Negative (Negative); Urine Clarity Clear (Clear); Urine Urobilinogen Normal (Normal); Urine pH 6.5 (5.0 - 8.0)
[2024-08-20 15:27] LABS: ALB/GLOB Ratio 1.5 RATIO (0.9-2.4); AST(SGOT) 115 U/L (<=31); Alanine Aminotransfer ALT/SGPT 103 U/L (<=34); Alkaline Phosphatase 182 U/L (35-104); Anion Gap 13 (5-15); BUN 16 mg/dL (4-19); BUN/Creat Ratio 16.5 RATIO (10-20); Calcium,Total 9.1 mg/dL (7.6-11.0); Chloride 104 mmol/L (98-108); Creatinine, Serum 0.97 mg/dL (0.70-1.20); EST Glomerular Filtration Rate 74 (>60); Estimated Creatinine Clearance 63.91 ml/min (50-250); Globulin 2.7 g/dL (2.2-4.2); Glucose 118 mg/dL (70-99); Lipase 11 U/L (13-75); Potassium 4.9 mmol/L (3.3-5.1); Protein, Total 6.6 g/dL (5.9-8.4); Sodium Level 136 mmol/L (133-145); Total Bilirubin 0.67 mg/dL (0.00-1.30)
[2024-08-20 15:40] LABS: Internal QC Validated? YES +Cl - CLEAR BKGD; Pregnancy, Serum, hCG Quali. NEGATIVE Negative; Record Kit Lot#, Serum Preg. 947241
[2024-08-20] MEDS: Ondansetron 4 MG/2 ML Vial IV (15:46)
[2024-08-20] MEDS: HYDROmorphone 0.5 MG/0.5 ML SYRINGE IV ×3 (15:46→23:40)
--- NOTE | 2024-08-20 16:00 | RAD_ITS ---
PROCEDURE: CHEST PA AND LATERAL 08/20/2024 REASON FOR EXAM: CHEST PAIN TECHNIQUE: Frontal and lateral views of the chest. COMPARISON: Chest radiograph and CT chest 07/20/2024. FINDINGS: Hardware: Stable right chest wall cardiac pacemaker device. Heart: Stable mild cardiomegaly and pulmonary vascular congestion. Mediastinum: The mediastinal contour is stable. Lungs: Bibasilar atelectasis. No focal consolidation, pleural effusion or pneumothorax. Bones: Degenerative changes are identified within the thoracic spine. RAD/Chest PA and Lateral IMPRESSION: CARDIOMEGALY. NO ACUTE FINDINGS. Reading Location: [id number]
[2024-08-20 16:12] LABS: Red Blood Cells-Urine 0-5 SEEN /hpf (0-5); Squamous Epithelial Cells - UA 0-5 SEEN /hpf (5-10); White Blood Cells 0-5 SEEN /hpf (0-5)
[2024-08-20 16:16] VITALS: BP 133/86; PULSE 54; RESP 14; O2SAT 99
[2024-08-20 16:24] LABS: Pro- Brain NATRIURETIC PEPTIDE 3711 pg/mL (<=450)
--- NOTE | 2024-08-20 17:47 | PCM.HP.STD ---
HPI - General General Date of Admission: 08/20/24 Date of Service: 08/20/24 Chief Complaint: Worsening RUQ abdominal pain HPI Narrative SANDRA GARDNER, is a 43 F who presented to [facility] ED on 08/20/2024 with worsening RUQ abdominal pain. Medical history significant for familial hypertrophic cardiomyopathy s/p ICD placement, DCIS, breast cancer s/p lumpectomy and ovarian cancer s/p total abdominal hysterectomy. She initially presented to the ED on 07/01/[address] at that time showed thickening of the colon concerning for IBD. She had EGD and colonoscopy done on 07/[address] Myles. Colonoscopy showed congested mucosa in the terminal ileum but otherwise normal-appearing colon. However, EGD showed acute gastritis with hemorrhage as biopsied as well as erythematous duodenopathy. Biopsy from terminal ileum showed focal active colitis that was a nonspecific finding. Biopsies from EGD were unremarkable. Patient continued to have abdominal pain and saw Dr. Myles in the office on 08/08. Productive greg, lab testing was done that showed evidence of cholestatic hepatitis. CT abdomen/pelvis on further evaluation also showed hepatomegaly initially thought to be secondary to heart failure but further review showed a double duct sign. MRCP was ordered but patient has had worsening pain and came to the ED today for further evaluation. In the ED she was hemodynamically stable on room air. CBC and BMP were benign. However, LFTs are uptrending with AST 115, ALT 103 and alk phos 182. Liver ultrasound showed hepatomegaly with nonspecific pancreatic duct dilation to 6.5 mm. Labs also notable for BNP 3711, though this is improved from previous. Chest x-ray showed cardiomegaly but no volume overload and patient was stable on room air. Case was discussed with Dr. Myles who recommended admission for further evaluation. Hospitalist was then contacted for admission. I saw the patient at bedside in the ED. She began a dose of IV Dilaudid for her pain with moderate improvement, but when I saw her she noted that the medication was started to wear off. She otherwise was sitting back in bed and answering questions appropriately for me. Denies any fevers or chills. No other acute concerns at this time. [facility] Medical History Hypertension Severe pulmonary hypertension History of hypertrophic cardiomyopathy Acute systolic congestive heart failure, NYHA class 3 Leukocytosis Cancer History of steroid therapy Easy bruising Migraine headache History of hiatal hernia History of ulceration History of IBS Abdominal bloating Stomach pain Nausea & vomiting Shortness of breath on exertion Smoker History of echocardiogram Chest pain Pulmonary embolism Endometrial cancer Cervical cancer [employer] current use of 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 Ovarian cancer GERD (gastroesophageal reflux disease) Insomnia Anxiety Collapsed lung History of blood clots Asthma Breast cancer Pacemaker ICD (implantable cardioverter-defibrillator) in place Hypertrophic cardiomyopathy Home Medications ?Medication ?Instructions ?Recorded ?Last Taken ?Type alprazolam 0.5 mg tablet 0.5 mg PO BID 11/13/21 08/20/24 History zolpidem 10 mg tablet 10 mg PO QHS 11/13/21 08/19/24 History sucralfate 1 gram tablet (Carafate) 1 g PO BIDCM 07/10/24 08/20/24 History metoprolol succinate 25 mg 25 mg PO QDAY 08/08/24 08/20/24 History tablet,extended release 24 hr meloxicam 15 mg tablet 15 mg PO QDAY #30 tabs 08/10/24 08/20/24 Rx pantoprazole 40 mg tablet,delayed 40 mg PO BID 08/11/24 08/20/24 History release scopolamine base 1 mg over 3 days 1 patch topical Q3D 08/20/24 08/19/24 History transdermal patch spironolactone 25 mg tablet 25 mg PO DAILY 08/20/24 08/20/24 History Allergy/AdvReac Type Severity Reaction Status Date / Time morphine Allergy Mild Hives Verified 08/20/24 14:17 codeine Allergy Hives Verified 08/20/24 14:17 erythromycin base Allergy PT UNSURE Verified 08/20/24 14:17 OF REACTION Fish Containing Products Allergy Other Verified 08/20/24 14:17 levofloxacin Allergy PT UNSURE Verified 08/20/24 14:17 OF REACTION shellfish derived Allergy Other Verified 08/20/24 14:17 tramadol Allergy Hives Verified 08/20/24 14:17 trimethobenzamide (From Allergy Other Verified 08/20/24 14:17 Tigan) gabapentin (From Neurontin) AdvReac Severe Anaphylaxis Verified 08/20/24 14:17 acetaminophen (From Vicodin) AdvReac Other Verified 08/20/24 14:17 hydrocodone (From Vicodin) AdvReac Other Verified 08/20/24 14:17 metoclopramide (From Reglan) AdvReac Other Verified 08/20/24 14:17 Family History Father Heart disease Idiopathic hypertrophic subaortic stenosis, hypertrophic obstructive cardiomyopathy, congestive heart failure Mother Breast cancer DVT (deep venous thrombosis) Sister Hypertrophic obstructive cardiomyopathy heart transplant at age 34 Cancer Brain, breast, and colon Grandfather Heart disease at age 45 Grandmother CVA (cerebral vascular accident) age 43 Surgical History Presence of implantable cardioverter-defibrillator (ICD) History of cardiac catheterization History of oophorectomy History of cervical polypectomy History of colonoscopy History of tubal ligation History of mastectomy History of cholecystectomy Hx of appendectomy Social History household members: spouse and family housing: house current occupational status: employed Smoking Status: Current every day smoker tobacco type: cigarettes how long ago did patient quit smokin months ago alcohol intake: former substance use type: does not use caffeine: Yes ROS Constitutional Constitutional: Denies chills, fatigue, fever(s) or weakness Cardiovascular Cardiovascular: Denies chest pain Respiratory/Chest Respiratory/Chest: Denies shortness of breath at rest Gastrointestinal Gastrointestinal: Reports abdominal pain and nausea; Denies constipation, diarrhea, dyspepsia or vomiting Genitourinary Genitourinary: Denies dysuria Musculoskeletal Musculoskeletal: Denies arthralgias or myalgias Neurologic Neurologic: Denies dizziness, focal weakness or headache(s) Vital Signs Vital Signs Vital Signs: 08/20/24 14:16 08/20/24 14:16 08/20/24 16:16 Temperature 97.6 F L Temperature Source Oral Pulse Rate 75 61 54 L Respiratory Rate 16 18 14 Blood Pressure 140/89 H 130/81 H 133/86 H Blood Pressure Mean 106 97 101 Pulse Ox 100 100 99 Oxygen Delivery Method Room Air Weight Weight: 58.876 kg Body Mass Index (BMI) 22.2 Physical Exam Const alert, oriented x3, no apparent distress and average body habitus Constitutional Narrative: Young middle-aged female, mildly fatigued and uncomfortable appearing due to ongoing abdominal pain, otherwise sitting up in bed and answering questions appropriately and in no acute distress. General Appearance: cooperative HEENT normocephalic, head/scalp atraumatic, hearing grossly normal bilaterally, nasal mucous membranes and turbinates normal and moist oral mucous membranes Eyes PERRL, EOMs intact bilaterally and conjunctivae normal Neck full ROM Chest inspection of chest normal Resp normal respiratory effort, normal air movement, no use of accessory muscles and clear to auscultation bilaterally Cardio regular rate, regular rhythm, no murmurs and peripheral pulses 2+ throughout GI GI Narrative: Abdomen soft and nondistended. Only diffuse tenderness to palpation noted on exam. No rebound tenderness or guarding noted. Back/Spine normal ROM Extremity normal to inspection, full ROM and no pedal edema Skin no rashes or lesions noted Psych mental status grossly normal Results Lab / Micro Data 08/20/24 14:43 08/20/24 14:43 Labs: Laboratory Results - last 24 hr 08/20/24 14:43: WBC 11.9 H, RBC 3.97 L, Hgb 12.6, Hct 38.1, MCV 96.0, MCH 31.7, MCHC 33.1, RDW Std Deviation 47.5 H, RDW Coeff of Damon 13.6, Plt Count 373, MPV 9.9, Immature Gran % (Auto) 0.600, Neut % (Auto) 83.3 H, Lymph % (Auto) 10.9 L, [place] % (Auto) 4.6, Eos % (Auto) 0.2, Baso % (Auto) 0.4, Absolute Neuts (auto) 9.9 H, Absolute Lymphs (auto) 1.29, Nucleated RBC % 0, Sodium 136, Potassium 4.9, Chloride 104, Carbon Dioxide 19.0 L, Anion Gap 13, BUN 16, Creatinine 0.97, Estim Creat Clear Calc 63.91, Est GFR (MDRD) Non-Af 74, BUN/Creatinine Ratio 16.5, Glucose 118 H, Calcium 9.1, Total Bilirubin 0.67, AST 115 H, ALT 103 H, Alkaline Phosphatase 182 H, NT pro BNP II 3711 H, Total Protein 6.6, Albumin 4.0, Globulin 2.7, Albumin/Globulin Ratio 1.5, Lipase 11 L, Serum , Qual NEGATIVE 08/20/24 15:10: Urine Color Straw, Urine Clarity Clear, Urine pH 6.5, Ur Specific [place] 1.010, Urine Protein 15 H, Urine Glucose (UA) Normal, Urine Ketones Negative, Urine Occult Blood 25 H, Urine Nitrite Negative, Urine Bilirubin Negative, Urine Urobilinogen Normal, Ur Leukocyte Esterase Negative, Urine RBC 0-5 SEEN, Urine WBC 0-5 SEEN, Ur Squamous Epith Cells 0-5 SEEN, Urine Bacteria 0 SEEN, Urine Mucus 0 SEEN Imaging Radiology Impression Liver Ultrasound 08/20/24 15:21 IMPRESSION: Gallbladder is surgically removed. Trace perihepatic ascites/fluid, nonspecific. Hepatomegaly. Nonspecific pancreatic duct dilation to 6.5 mm. Reading Location: [id number] Chest X-Ray 08/20/24 16:00 IMPRESSION: CARDIOMEGALY. NO ACUTE FINDINGS. Reading Location: [id number] Assessment & Plan Assessment/Plan (1) Abdominal pain: QUALIFIERS: Abdominal location: unspecified location Qualified Code(s): R10.9 - Unspecified abdominal pain (2) Elevated liver enzymes: (3) Dilated pancreatic duct: PLAN: Plan Patient is a 43-year-old female who presented to [facility] ED on 08/20/2024 with worsening RUQ abdominal pain. 1. Worsening RUQ abdominal pain with elevated LFTs ? Admit under inpatient status to PCU. GI consulted. Presented with worsening abdominal pain and uptrending LFTs. Prior CT abdomen pelvis showed hepatomegaly with double duct sign. Liver ultrasound on this admission again showed hepatomegaly with pancreatic duct dilation. Per GI, will plan for MRCP and possible ERCP tomorrow. N.p.o. at midnight. Trend LFTs. Appreciate further GI recs. 2. Chronic HFrEF in setting of familial hypertrophic cardiomyopathy, hypertension ? Follows with [place] [facility]. Most recent echo on 07/21 showed EF 35%, mild concentric LV hypertrophy, global LV hypokinesis, stage II diastolic dysfunction. BNP 3711 on this admission; notably this is improved from previous. Chest x-ray with no evidence of volume overload and patient stable on room air at rest so not consistent with heart failure exacerbation. Continue home spironolactone and Toprol. 3. Anxiety/insomnia ? Stable. Continue home alprazolam and zolpidem at night. 4. GERD ? Continue home PPI twice daily. Will hold home sucralfate for now. DVT prophylaxis: Lovenox CODE STATUS: Full code, verified Expected disposition: Home, TBD Total clinical time spent by myself addressing the patient's medical issues, reviewing all the data, and collaborating with patient's care team: 75 minutes. Charges/Coding Visit Charges Inpatient E&M: 26730 Init Hosp L3
[2024-08-20 18:00] VITALS: BP 136/88; PULSE 63; RESP 18; TEMP 36.6; O2SAT 100
[2024-08-20 18:53] VITALS: BP 146/84; PULSE 56; RESP 20; TEMP 36.2; O2SAT 98; BMI 21.7
--- NOTE | 2024-08-20 19:13 | EX.PCM.CON.G ---
HPI Consult Data Date of Consult: 08/20/24 HPI Narrative Reason for Consultation: Abdominal pain HPI Narrative: SANDRA GARDNER, is a 43 yo female pt here today for evaluation of abdominal pain x3 days. She is known to the GI service. I initially saw her when she presented to the ED 07.01.24 with complaints of abd pain and underwent CT which showed thickening in the colon concerning for IBD. Pt pain has continued to increase since the ED. She endorsed constipation, diffuse abd pain, nausea and vomiting. She will undergo EGD and colonoscopy for assessment of her lower and upper GI tract. She also was recently in the hospital for paroxysmal nocturnal dyspnea. Patient has a history of familial hypertrophic cardiomyopathy. She also has a personal history of hypertrophic cardiomyopathy and has had a AICD for multiple years. I saw in a hospital consultation for abdominal pain and bloating. Her repeat ejection fraction went from 50% down to 35%. Also her pulmonary pressures went up from 58-77. She was transferred to outside facility. They controlled her with medical therapy after getting her BNP down from 60 400-100. She still having a lot of abdominal pain. I had drawn some liver test and she has biochemical evidence of cholestatic hepatitis. Her CT scan did show hepatomegaly which was thought to be secondary to heart failure but it also did show a double duct sign. I have ordered an MRCP but she has an AICD so I am awaiting possible clearance by radiology so she can get MRCP. If that is not possible then she may need an ERCP to evaluate her for postcholecystectomy sphincter of Oddi syndrome, choledocholithiasis, ampullary lesion. She was not able to get her outpatient MRCP and presented back to the emergency room today. Her liver enzymes are showing a more cholestatic pattern. She had an ultrasound that showed dilated pancreatic duct to 6.4 mm with a 6 mm common bile duct. No obvious stones or lesions were seen. [facility] Medical History Hypertension Severe pulmonary hypertension History of hypertrophic cardiomyopathy Acute systolic congestive heart failure, NYHA class 3 Leukocytosis Cancer History of steroid therapy Easy bruising Migraine headache History of hiatal hernia History of ulceration History of IBS Abdominal bloating Stomach pain Nausea & vomiting Shortness of breath on exertion Smoker History of echocardiogram Chest pain Pulmonary embolism Endometrial cancer Cervical cancer snf current use of 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 Ovarian cancer GERD (gastroesophageal reflux disease) Insomnia Anxiety Collapsed lung History of blood clots Asthma Breast cancer Pacemaker ICD (implantable cardioverter-defibrillator) in place Hypertrophic cardiomyopathy Home Medications ?Medication ?Instructions ?Recorded ?Last Taken ?Type alprazolam 0.5 mg tablet 0.5 mg PO BID 11/13/21 08/20/24 History zolpidem 10 mg tablet 10 mg PO QHS 11/13/21 08/19/24 History sucralfate 1 gram tablet (Carafate) 1 g PO BIDCM 07/10/24 08/20/24 History metoprolol succinate 25 mg 25 mg PO QDAY 08/08/24 08/20/24 History tablet,extended release 24 hr meloxicam 15 mg tablet 15 mg PO QDAY #30 tabs 08/10/24 08/20/24 Rx pantoprazole 40 mg tablet,delayed 40 mg PO BID 08/11/24 08/20/24 History release scopolamine base 1 mg over 3 days 1 patch topical Q3D 08/20/24 08/19/24 History transdermal patch spironolactone 25 mg tablet 25 mg PO DAILY 08/20/24 08/20/24 History Allergy/AdvReac Type Severity Reaction Status Date / Time morphine Allergy Mild Hives Verified 08/20/24 14:17 codeine Allergy Hives Verified 08/20/24 14:17 erythromycin base Allergy PT UNSURE Verified 08/20/24 14:17 OF REACTION Fish Containing Products Allergy Other Verified 08/20/24 14:17 levofloxacin Allergy PT UNSURE Verified 08/20/24 14:17 OF REACTION shellfish derived Allergy Other Verified 08/20/24 14:17 tramadol Allergy Hives Verified 08/20/24 14:17 trimethobenzamide (From Allergy Other Verified 08/20/24 14:17 Tigan) gabapentin (From Neurontin) AdvReac Severe Anaphylaxis Verified 08/20/24 14:17 acetaminophen (From Vicodin) AdvReac Other Verified 08/20/24 14:17 hydrocodone (From Vicodin) AdvReac Other Verified 08/20/24 14:17 metoclopramide (From Reglan) AdvReac Other Verified 08/20/24 14:17 Family History Father Heart disease Idiopathic hypertrophic subaortic stenosis, hypertrophic obstructive cardiomyopathy, congestive heart failure Mother Breast cancer DVT (deep venous thrombosis) Sister Hypertrophic obstructive cardiomyopathy heart transplant at age 34 Cancer Brain, breast, and colon Grandfather Heart disease at age 45 Grandmother CVA (cerebral vascular accident) age 43 Surgical History Presence of implantable cardioverter-defibrillator (ICD) History of cardiac catheterization History of oophorectomy History of cervical polypectomy History of colonoscopy History of tubal ligation History of mastectomy History of cholecystectomy Hx of appendectomy Social History household members: spouse and family housing: house current occupational status: employed Smoking Status: Current every day smoker tobacco type: cigarettes how long ago did patient quit smokin months ago alcohol intake: former substance use type: does not use caffeine: Yes Lab / Micro Data 08/20/24 14:43 08/20/24 14:43 Labs: Laboratory Results - last 24 hr 08/20/24 14:43: WBC 11.9 H, RBC 3.97 L, Hgb 12.6, Hct 38.1, MCV 96.0, MCH 31.7, MCHC 33.1, RDW Std Deviation 47.5 H, RDW Coeff of Damon 13.6, Plt Count 373, MPV 9.9, Immature Gran % (Auto) 0.600, Neut % (Auto) 83.3 H, Lymph % (Auto) 10.9 L, [place] % (Auto) 4.6, Eos % (Auto) 0.2, Baso % (Auto) 0.4, Absolute Neuts (auto) 9.9 H, Absolute Lymphs (auto) 1.29, Nucleated RBC % 0, Sodium 136, Potassium 4.9, Chloride 104, Carbon Dioxide 19.0 L, Anion Gap 13, BUN 16, Creatinine 0.97, Estim Creat Clear Calc 63.91, Est GFR (MDRD) Non-Af 74, BUN/Creatinine Ratio 16.5, Glucose 118 H, Calcium 9.1, Total Bilirubin 0.67, AST 115 H, ALT 103 H, Alkaline Phosphatase 182 H, NT pro BNP II 3711 H, Total Protein 6.6, Albumin 4.0, Globulin 2.7, Albumin/Globulin Ratio 1.5, Lipase 11 L, Serum , Qual NEGATIVE 08/20/24 15:10: Urine Color Straw, Urine Clarity Clear, Urine pH 6.5, Ur Specific [place] 1.010, Urine Protein 15 H, Urine Glucose (UA) Normal, Urine Ketones Negative, Urine Occult Blood 25 H, Urine Nitrite Negative, Urine Bilirubin Negative, Urine Urobilinogen Normal, Ur Leukocyte Esterase Negative, Urine RBC 0-5 SEEN, Urine WBC 0-5 SEEN, Ur Squamous Epith Cells 0-5 SEEN, Urine Bacteria 0 SEEN, Urine Mucus 0 SEEN Imaging Radiology Impression Liver Ultrasound 08/20/24 15:21 IMPRESSION: Gallbladder is surgically removed. Trace perihepatic ascites/fluid, nonspecific. Hepatomegaly. Nonspecific pancreatic duct dilation to 6.5 mm. Reading Location: [facility] Chest X-Ray 08/20/24 16:00 IMPRESSION: CARDIOMEGALY. NO ACUTE FINDINGS. Reading Location: [facility] Assessment & Plan Assessment/Plan (1) Abdominal pain: QUALIFIERS: Abdominal location: unspecified location Qualified Code(s): R10.9 - Unspecified abdominal pain (2) GERD (gastroesophageal reflux disease): PLAN: Assessment and Plan Assessment and Plan (1) Abdominal pain: Status: Acute Plan: This is a 43 yo female pt here today for evaluation of abdominal pain x3 days. Pt presented to the ED 4.. with complaints of abd pain and underwent CT which showed thickening in the colon concerning for IBD. Pt pain has continued to increase since the ED. She endorses constipation, diffuse abd pain, nausea and vomiting. She will need likely MRCP and ERCP. (3) Dilated pancreatic duct: (4) Elevated liver enzymes: Charges/Coding Visit Charges Inpatient E&M: 27919 Init Hosp L3
[2024-08-20 21:30] VITALS: BP 88/78; PULSE 59; RESP 18; TEMP 36.1; O2SAT 100
[2024-08-20] MEDS: Zolpidem Tartrate 5 MG Tablet 10 MG PO (21:53)
[2024-08-20] MEDS: ALPRAZolam 0.5 MG Tablet PO (21:53)
[2024-08-20] MEDS: oxyCODONE 5 MG Tablet PO (21:53)
[2024-08-20] MEDS: Pantoprazole Sodium 40 MG Tablet PO (21:53)
[2024-08-21] VITALS (14 sets, daily range): BP systolic 112–145; BP diastolic 67–88; PULSE 60–87; RESP 16–20; TEMP 35.6–37.6; O2SAT 93–99; BMI 21.7
--- OUTSIDE RECORDS SUMMARY | 2024-08-21 00:03 | XMS RPT_ITS | CCD ---
Demographics Address [address] [place] [address] Mobile Phone Preferred Language en Marital Status Samaritan Affiliation Unknown Race White Ethnic Group Not or Lati no Author Organization [facility] Care Team Providers Care Pie Crust Mixer Name Role Phone TABBAA, MOUSAB Unavailable Unavailable TABBAA, MOUSAB Unavailable Unavailable Unavailable Primary Care Provider Tam SUTHERLAND MD, DR DEX Dunbar Primary Care Physician DIANA CINTRON, DR FUNEZ Attending Tam SUTHERLAND MD, DR DEX Dunbar Primary Care UnavaDex Couch MD Primary Care Provider Dr. Dex Sutherland MD Primary Care Provider Rosalio CINTRON, Dr. Felton Attending Provider Dr. Dex Sutherland MD Referring Provider Dr. Bimal Cortez MD Attending Provider Dr. Bimal Cortez MD Emergency Provider Dr. Babar Wood DO Emergency Provider PROVIDER, UNKNOWN Primary Care Unavailable MARVA CHEUNG Attending Unavailable PROVIDER, UNKNOWN Referring Unavailable PROVIDER, UNKNOWN Primary Care Unavailable PROVIDER, UNKNOWN Admitting Unavailable LUIS MIGUEL VUONG Consulting Unavaila ble PROVIDER, UNKNOWN Attending Unavailable PROVIDER, UNKNOWN Attending Unavailable PROVIDER, UNKNOWN Primary Care Unavailable PROVIDER, UNKNOWN Admitting Unavailable SERGIO DE LA TORRE Consulting Unavailable Dr. Babar Wood DO Attending Provider Bárbara Mendez Attending Provider Dr. Nabor Frey DO Attending Provider Dr. Nabor Frey DO Emergency Provider Xochitl Cole Attending Provider [phone] Dr. Quang Myles DO Attending Provider Dr. Wendy Myles DOaan Other Provider Korey HAMLIN, Dr. Gonzalez Emergency Provider de Koby DO, Dr. Beauchamp Admit Provider Unavail able de Koby DO, Dr. Beauchamp Attending Provider Unav ailable Korey DO, Dr. Gonzalez Emergency Provider de Koby DO, Dr. Beauchamp Admit Provider Unavail able de Koby DO, Dr. Beauchamp Other Provider Unavail able Marilynn CINTRON, Dr. Colbert Other Provider Unavailable Juanita CINTRON, Dr. Benton Other Provider Obed CINTRON, Dr. Davison Other Provider Delroy CINTRON, Dr. Ruffin Other Provider Esme CINTRON, Dr. Ochoa Other Provider Unavailable Rosalio CINTRON, Dr. Felton Other Provider Deanna CINTRON, Dr. Gallo Other Provider Dr. Meryc Bishop MD Other Provider Sandra CINTRON, Dr. Stein Other Provider Wilder CINTRON, Dr. Kaur Other Provider Josep CINTRON, Dr. Coronado Other Provider Jana SENIOR INFRASTRUCTURE ENGINEER-C, Bogdan Pope Other Provider Xochitl Cole Other Provider Grover Alexis Other Provider Dr. Willian Ovalles DO Attending Provider Dr. Willian Ovalles DO Other Provider Obed CINTRON, Dr. Davison Attending Provider Dr. Willian Colón MD Attending Provider Dario CINTRON, Dr. Elias Attending Provider Dex Sutherland MD Primary Care Provider Skye RN, Asuncion Unavailable Unavailable Jaja CINTRON, Dr. Kowalski Primary Care Provider Dr. Dex Sutherland MD Referring Provider Dr. Jose Francisco Santamaria MD Attending Provider Umaña DO, Dr. Beauchamp Referring Provider Unav lori Sutherland MD, Dr. Kowalski Primary Care Provider Dana CINTRON, Dr. Wallis Attending Provider Dana CINTRON, Dr. Wallis Emergency Provider Andabdirashid HAMLIN, Dr. Eckert Attending Provider Israel HAMLIN, Dr. Eckert Emergency Provider Jaja CINTRON, Dr. Kowalski Referring Provider Bárbara Mendez Attending Provider Tk HAMLIN, Dr. Tomlin Attending Provider Tk HAMLIN, Dr. Tomlin Emergency Provider Rosalio CINTRON, Dr. Felton Attending Provider Xochitl Cole Attending Provider Shameka HAMLIN, Dr. Del Rio Attending Provider Shameka HAMLIN, Dr. Del Rio Other Provider Korey HAMLIN, Dr. Gonzalez Emergency Provider Umaña DO, Dr. Beauchamp Admit Provider Unavail able Umaña DO, Dr. Beauchamp Other Provider Unavail able Marilynn CINTRON, Dr. Colbert Other Provider Unavailable Juanita CINTRON, Dr. Benton Other Provider Obed CINTRON, Dr. Davison Other Provider Delroy CINTRON, Dr. Ruffin Other Provider Esme CINTRON, Dr. Ochoa Other Provider Unavailable Rosalio CINTRON, Dr. Felton Other Provider Deanna CINTRON, Dr. Gallo Other Provider Dario CINTRON, Dr. Elias Other Provider Sandra CINTRON, Dr. Stein Other Provider Wilder CINTRON, Dr. Kaur Other Provider Josep CINTRON, Dr. Coronado Other Provider Jana SENIOR INFRASTRUCTURE ENGINEER-C, Bogdan Pope Other Provider Xochitl Cole Other Provider Grover Alexis Other Provider Josr HAMLIN, Dr. Dorsey Attending Provider Josr HAMLIN, Dr. Dorsey Other Provider Obed CINTRON, Dr. Davsion Attending Provider Eldon CINTRON, Dr. Dorsey Attending Provider Dr. Sergio Umaña DO Referring Provider Unav lori Bishop MD, Dr. Elias Attending Provider Shameka HAMLIN, Dr. Del Rio Referring Provider Edith HAMLIN, Dr. Almonte Emergency Provider RADU PEDRAZA Attending Unavailable DEX SUTHERLAND B Primary Care Unavailable MERCY BISHOP Referring Unavail able DEX SUTHERLAND Primary Care Unavailable CASE FONSECA Attending Unavailable CASE FONSECA Admitting Unavailable Babar Wood Attending Unavailable Jaja, Dex Primary Care Unavailable Jaja, Dex Primary Care Unavailable Mercy Bishop Referring Unavailable Mercy Bishop Attending Unavailable Dex Sutherland Referring Unavailable Rosalio, Madison Attending Unavailable Sutherland, Dex Primary Care Unavailable Babar Wood Attending Unavailable Sutherland, Dex Primary Care Unavailable Sutherland, Dex Primary Care Unavailable Sergio Umaña Admitting Unavailable Amro, Ahmed Consulting Unavailable Obed, Saman Attending Unavailable Mostkristen Chetan Consulting Unavailable Saman Clay Consulting Unavailable Augustin Potts Consulting Unavailable Esme, Don Consulting Unavailable Rosalio, Madison Consulting Unavailable Belal, Farouk Consulting Unavailable Mercy Bishop Consulting Unavailable Sarita Flores Consulting Unavailabl e Vincent Hdz Consulting Unavailable Cliff Car Consulting Unavailable Jana SENIOR INFRASTRUCTURE ENGINEER, Bogdan Pope Consulting Unavailable Xochitl Cole Consulting Unavail able Grover Guerra Consulting Unavailable Sergio Umaña Consulting Unavailable Willian Ovalles Consulting Unavailable Sutherland, Dex Primary Care Unavailable Friend, Quang Attending Unavailable Friend, Quang Referring Unavailable Sutherland, Dex Referring Unavailable Sutherland, Dex Primary Care Unavailable Friend, Quang Attending Unavailable Rosalio, Madison Attending Unavailable Sutherland, Dex Primary Care Unavailable Sutherland, Dex Referring Unavailable Rosalio, Madison Attending Unavailable Sutherland, Dex Primary Care Unavailable Rosalio, Madison Attending Unavailable Sutherland, Dex Primary Care Unavailable Sutherland, Dex Referring Unavailable AtanasovBárbara Attending Unavailable Sutherland, Dex Primary Care Unavailable Sutherland, Dex Referring Unavailable Rosalio, Madison Attending Unavailable Sutherland, Dex Primary Care Unavailable Sutherland, Dex Primary Care Unavailable Rosalio, Jose Francisco Attending Unavailable Sutherland, Dex Primary Care Unavailable Rosalio, Jsoe Francisco Attending Unavailable Sergio Umaña Attending Unavailable Qingeri, Willian Attending Unavailable Sutherland, Dex Referring Unavailable AtanasovBárbara Attending Unavailable Sutherland, Dex Primary Care Unavailable Sutherland, Dex Primary Care Unavailable Sutherland, Dex Referring Unavailable Xochitl Cole Attending Unavail able Nabor Frey Attending Unavailable Sutherland, Dex Primary Care Unavailable Sutherland, Dex Primary Care Unavailable Sutherland, Dex Referring Unavailable Friend, Quang Attending Unavailable Sutherland, Dex Primary Care Unavailable Friend, Quang Attending Unavailable Friend, Quang Referring Unavailable Sutherland, Dex Primary Care Unavailable Friend, Quang Attending Unavailable Friend, Quang Referring Unavailable Sutherland, Dex Primary Care Unavailable Josr, Willian Attending Unavailable Sergio Umaña Admitting Unavailable Amro, Ahmed Consulting Unavailable Mostafa, Chetan Consulting Unavailable Obed, Saman Consulting Unavailable Delroy, Augustin Consulting Unavailable Esme, Don Consulting Unavailable Rosalio, Jose Francisco Consulting Unavailable Cleo Huerta Consulting Unavailable Mercy Bishop Consulting Unavailable Sarita Flores Consulting UnavailVincent Darnell Consulting Unavailable Cliff Car Consulting Unavailable Jana GONSALES, Bogdan Pope Consulting Unavailable Xochitl Cole Consulting Unavail able Grover Guerra Consulting Unavailable Sergio Umaña Consulting Unavailable Sutherland, Dex Primary Care Unavailable Gage Sharma Attending Unavailabl e Dex Sutherland Primary Care Unavailable Friend, Quang Attending Unavailable Friend, Quang Referring Unavailable Jaja, Dex Primary Care Unavailable Sergio Umaña Referring Unavailable Willian Colón Attending Unavailable Jaja, Dex Referring Unavailable Sutherland, Dex Primary Care Unavailable Breann Loera Attending Unavailable Sutherland, Dex Referring Unavailable Sutherland, Dex Primary Care Unavailable Friend, Quang Attending Unavailable Friend, Quang Consulting Unavailable Mercy Bishop Attending Unavailable Bimal Cortez Attending Unavailable Jaja, Dex Primary Care Unavailable Dex Sutherland MD Primary Care Provider Dr. Gage Sharma DO Attending Provider Dr. Simona Fernandez DO Emergency Provider Dr. Lopez Larios DO Admit Provider Dr. Lopez Larios DO Attending Provider Allergies Allergy Classification Reported Allergen(s) Allergy Type Date of Onset Reaction(s) Facility (9 sources) acetaminophen / HYDROcodone; Translations: [HYDROCODONE-ACETAMI NOPHEN] Drug Allergy 01-31-20 07 Shortness of Breath [facility] Repository (10 sources) azithromycin; Translations: [AZITHROMYCIN] Drug Allergy 10-20-19 07 Intolerance, Unknown [facility] Repository (15 sources) cucumber extract; Translations: [CUCUMBER] Drug Allergy 09-03-19 [address] [facility] Repository (7 sources) FLUoxetine; Translations: [FLUOXETINE HCL] Drug Allergy 11-08-19 14 Other: See Comments [facility] Repository (15 sources) gabapentin; Translations: [GABAPENTIN] Drug Allergy 05-17-19 12 Mental Status Change [facility] Repository (7 sources) levoFLOXacin; Translations: [LEVOFLOXACIN IN D5W] Drug Allergy 04-05-19 14 Swelling, Itching [facility] Repository (4 sources) LORazepam; Translations: [LORAZEPAM] Drug Allergy 07-11-19 11 AOF, Other [facility] Repository (13 sources) morphine; Translations: [MORPHINE] Drug Allergy 09-15-[address] [facility] Repository (2 sources) ondansetron; Translations: [ONDANSETRON HCL (PF)] [facility] Shellfish; Translations: [SHELLFISH] Propensity to adverse reactions to food (disorder) 08-21-19 [address] [facility] Repository (20 sources) traMADol; Translations: [TRAMADOL] Drug Allergy 12-09-19 [address] [facility] Repository (1 source) OTHER; Translations: [OTHER] Propensity to adverse reactions (disorder) 09-03-[address] [facility] Repository (7 sources) TRIMETHOBENZAMIDE-BE NZOCAINE; Translations: [TRIMETHOBENZAMIDE-B ENZOCAINE] Propensity to adverse reactions to drug (disorder) 09-23-19 [address] [facility] Repository (7 sources) FISH; Translations: [FISH] Propensity to adverse reactions to food (disorder) 08-21-19 [address] [facility] Repository (16 sources) Codeine; Translations: [codeine] Drug Allergy 11-03-[address] [facility] (13 sources) Erythromycin Drug Allergy 11-03-19 22 PT UNSURE OF REACTION [facility] (1 source) Penicillins Allergy to substance 11-03-19 PT UNSURE OF REACTION [facility] Work Phone: (11 sources) levoFLOXacin Drug Allergy 12-17-19 22 PT UNSURE OF REACTION [facility] (7 sources) Acetaminophen Drug Allergy 07-02-[address] [facility] (7 sources) HYDROcodone Drug Allergy 07-02-[address] [facility] (7 sources) Metoclopramide Drug Allergy 07-02-[address] [facility] (10 sources) Shellfish; Translations: [SHELLFISH DERIVED] Allergy to substance 07-02-[address] [facility] (9 sources) trimethobenzamide; Translations: [TRIMETHOBENZAMIDE] Drug Allergy 07-02-[address] [facility] (7 sources) Fish Containing Products Allergy to substance 07-02-[address] [facility] (2 sources) FLUoxetine; Translations: [FLUOXETINE] Drug Allergy 08-16-19 25 Other [facility] Repository (1 source) Acetaminophen Drug Allergy 08-12-[address] [facility] Repository (1 source) Codeine Drug Allergy 08-12-[address] [facility] Repository (1 source) HYDROcodone Drug Allergy 08-12-[address] [facility] Repository (1 source) levoFLOXacin Drug Allergy 08-12-[address] [facility] Repository (1 source) Metoclopramide Drug Allergy 08-12-[address] [facility] Repository (1 source) trimethobenzamide Drug Allergy 08-12-[address] [facility] Repository (1 source) Fish Containing Products Drug allergy (disorder) 08-12-[address] [facility] Repository (1 source) erythromycin base Drug allergy (disorder) 08-12-[address] [facility] Repository Medications Current Medications Medication Drug Class(es) Dates Sig (Normalized) Sig (Original) acetaminophen 325 mg / HYDROcodone bitartrate 5 mg oral tablet (1 source) Opioid Agonist Start: 11-13-2021 take 1 tablet by mouth every six hours Hydrocodone-Acet aminophen Active 1 TABLET PO EVERY 6 HOURS 12 3 November 13, 2021 clindamycin 300 mg oral capsule (2 sources) Lincosamide Antibacterial Start: 11-02-2021 take 1 capsule by mouth every six hours Clindamycin Hcl (Cleocin Hcl) 300 mg capsule Active 300 MG PO EVERY 6 HOURS November 02, 2021 12:00am dicyclomine hydrochloride 10 mg oral capsule (11 sources) Anticholinergic Start: 07-08-2024 take 1 capsule by mouth three times daily before mealtime dicyclomine (BENTYL) 10 mg capsule Take 1 capsule by mouth three times a day before meals. 90 capsule 07/08/2024 Active Start: 07-03-2024 End: 08-20-2024 empagliflozin 10 mg oral tablet (1 source) Sodium-Glucose Cotransporter 2 Inhibitor Start: 08-15-2024 End: 08-15-2025 take 1 tablet by mouth once daily empagliflozin (Jardiance) 10 mg tablet Indications: Hypertrophic cardiomegaly , Chronic heart failure with preserved ejection fraction (HFpEF) Take 1 tablet (10 mg) by mouth once daily. 30 tablet 11 08/15/2024 08/15/2025 Active ibuprofen 600 mg oral tablet (1 source) Nonsteroidal Anti-inflammatory Drug Start: 11-13-2021 take 600 mg by mouth every six hours Ibuprofen Active 600 MG PO EVERY 6 HOURS November 13, 2021 12:00am meloxicam 15 mg oral tablet (4 sources) Nonsteroidal Anti-inflammatory Drug Start: 08-10-2024 24 hr metoprolol succinate 25 mg extended release oral tablet (6 sources) beta-Adrenergic Krishan Start: 07-27-2024 pantoprazole 40 mg delayed release oral tablet (14 sources) Proton Pump Inhibitor Start: 08-11-2024 Start: 07-10-2024 End: 08-11-2024 Start: 07-08-2024 take 1 tablet by khris th twice daily before mealtime, then take 4 tablets by mouth in the evening pantoprazole DR (PROTONIX) 40 mg tablet Take 1 tablet by mouth two times a day before meals at 6 am and 4 pm. 60 tablet 2 07/08/2024 Active take 1 tablet by khris th once daily before mealtime pantoprazole (ProtoNix) 40 mg EC tablet Take 1 tablet (40 mg) by mouth once daily in the morning. Take before meals. Do not crush, chew, or split. Active psyllium 3400 mg powder for oral suspension (5 sources) Start: 07-08-2024 take 1 dose by mouth twice daily psyllium (METAMUCIL) 3.4 gram packet Take 1 packet by mouth two times a day. 60 packet 5 07/08/2024 Active take 1 dose by mouth once daily psyllium (Metamucil) 3.4 gram packet Take 1 packet by mouth once daily. Active 72 hr scopolamine 0.0139 mg/ hr transdermal system (4 sources) Anticholinergic Start: 08-20-2024 Start: 08-08-2024 End: 08-11-2024 spironolactone 25 mg oral ta blet (2 sources) Aldosterone Antagonist Start: 08-15-2024 End: 08-15-2025 sucralfate 1000 mg oral tabl et (11 sources) Aluminum Complex Start: 07-08-2024 zolpidem tartrate 10 mg oral tablet (18 sources) gamma-Aminobutyric Acid-ergic Agonist Start: 11-13-2021 Completed/Discontinued Medications Medication Drug Class(es) Dates Sig (Normalized) Sig (Original) acetaminophen 325 mg / oxyCODONE hydrochloride 5 mg oral tablet (20 sources) Opioid Agonist Start: 11-02-2023 End: 07-20-2024 Start: 11-02-2023 End: 07-20-2024 Oxycodone-Acetaminophen (End ocet) 5-325 mg tablet Discontinued 1 {tbl} PO EVERY 6 HOURS as needed for pain 12 July 01, 2024 July 20, 2024 11:41pm Start: 07-04-2023 End: 08-16-2023 Oxycodone-Acetaminophen (Per cocet) 5-325 mg tablet Discontinued 1 {tbl} PO Q8H as needed for pain 10 July 04, 2023 August 16, 2023 11:22am Start: 12-26-2022 End: 08-16-2023 Start: 12-26-2022 End: 08-16-2023 Oxycodone-Acetaminophen (Per cocet) 5-325 mg tablet Discontinued 1 {tbl} PO EVERY 6 HOURS as needed for pain 12 December 26, 2022 August 16, 2023 11:22am [id number] 200 actuat albuter ol 0.09 mg/actuat metered dose inhaler (12 sources) beta2-Adrenergic Agonist Start: 07-26-2023 End: 08-11-2024 take 2 puff(s) by in halation every six hours for wheezing albuterol (Ventolin HFA) 90 mcg/actuatio n inhaler Inhale 2 puffs every 6 hours if needed for wheezing. Active take 2 puff(s) by in halation every four hours as needed for wheezing albuterol HFA (VENTOLIN HFA) 90 mcg/actuation inhaler Inhale 2 Puffs as instructed every 4 hours as needed for wheezing/shortness of breath. Active ALPRAZolam 0.5 mg oral table t (20 sources) Benzodiazepine Start: 11-13-2021 End: 08-10-2024 amoxicillin 875 mg / clavula mayra 125 mg oral tablet (8 sources) Penicillin-class Antibacterial Start: 11-02-2023 End: 05-12-2024 Start: 11-02-2023 End: 05-12-2024 Amoxicillin-Pot Clavulanate 875-125 mg tablet Discontinued 1 {tbl} PO TWICE A DAY 14 November 02, 2023 12:00am May 12, 2024 1:11am Start: 11-13-2021 take 1 tablet by khris th every twelve hours Amoxicillin-Pot Clavulanate Active 1 TABLET PO Q12H November 13, 2021 12:00am Benzocaine (1 source) Standardized Chemical Allergen Start: 07-25-2024 End: 07-25-2024 TOPICAL, X (OR/PROCEDURE) PRN, Starting on Tue07/25/24 at 1530, Until Tue07/25/24 at 1530, Intraprocedure celecoxib 200 mg oral capsule (6 sources) Nonsteroidal Anti-inflammatory Drug Start: 08-08-2024 End: 08-11-2024 1 ml fentaNYL 0.05 mg/ml injection (1 source) Opioid Agonist Start: 07-25-2024 End: 07-25-2024 INTRAVENOUS, X (OR/PROCEDURE) PRN, Starting on Tue07/25/24 at 1535, Until Tue07/25/24 at 1553, Intraprocedure furosemide 20 mg oral tablet (14 sources) Loop Diuretic Start: 07-26-2023 End: 11-01-2023 Start: 07-26-2023 End: 08-16-2023 take 1 tablet by mouth once daily Furosemide (Lasix) 20 mg tablet Discontinued 20 mg PO DAILY July 26, 2023 12:00am August 16, 2023 11:23am ketorolac tromethamine 10 mg oral tablet (6 sources) Nonsteroidal Anti-inflammatory Drug, Cyclooxygenase Inhibitor Start: 07-03-2024 End: 07-20-2024 lidocaine hydrochloride 0.02 mg/mg topical gel (1 source) Antiarrhythmic, Amide Local Anesthetic Start: 07-25-2024 End: 07-25-2024 X (OR/PROCEDURE) PRN, Starting on Tue07/25/24 at 1530, Until Tue07/25/24 at 1530, Intraprocedure methscopolamine bromide 5 mg oral tablet (8 sources) Anticholinergic Start: 10-26-2023 End: 07-10-2024 5 ml midazolam 1 mg/ml injection (1 source) Benzodiazepine Start: 07-25-2024 End: 07-25-2024 INTRAVENOUS, X (OR/PROCEDURE) PRN, Starting on Tue07/25/24 at 1535, Until Tue07/25/24 at 1553, Intraprocedure ondansetron 4 mg disintegrating oral tablet (17 sources) Serotonin-3 Receptor Antagonist Start: 12-26-2022 End: 08-16-2023 Start: 12-26-2022 End: 08-16-2023 take 1 tablet by mouth three times daily as needed for nausea and vomiting Ondansetron 4 mg tablet,disintegrating Discontinued 4 mg PO THREE TIMES A DAY as needed for nausea and vomiting December 26, 2022 1:35am August 16, 2023 11:22am predniSONE 20 mg oral tablet (13 sources) Start: 07-20-2024 End: 08-11-2024 Start: 07-01-2024 End: 07-10-2024 Start: 07-01-2024 End: 07-10-2024 take 2 tablets by mouth once daily Prednisone 20 mg tablet Discontinued 40 mg PO DAILY 12 16July 01, 2024 12:00am July 10, 2024 11:56am rimegepant 75 mg disintegrat ing oral tablet (7 sources) Start: 07-26-2023 End: 08-16-2023 Start: 07-26-2023 End: 08-16-2023 take 1 tablet by mouth once as needed Rimegepant (Nurtec Odt) 75 mg tablet,disintegrating Discontinued 75 mg PO ONCE as needed July 26, 2023 12:00am August 16, 2023 11:23am as a single dose sulfamethoxazole 800 mg / trimethoprim 160 mg oral tablet (10 sources) Dihydrofolate Reductase Inhibitor Antibacterial, Sulfonamide Antimicrobial Start: 08-11-2024 End: 08-11-2024 Start: 05-12-2024 End: 07-10-2024 Start: 05-12-2024 End: 07-10-2024 Sulfamethoxazole-Trimethopri m 800-160 mg tablet Discontinued 1 {tbl} PO TWICE A DAY May 12, 2024 1:00am July 10, 2024 11:56am traZODone hydrochloride 50 m g oral tablet (11 sources) Serotonin Reuptake Inhibitor Start: 08-11-2024 End: 08-11-2024 Start: 07-26-2023 End: 07-10-2024 Start: 07-26-2023 End: 07-10-2024 take 1 tablet by mouth at bedtime Trazodone 50 mg tablet Discontinued 50 mg PO AT BEDTIME July 26, 2023 12:00am July 10, 2024 11:56am vortioxetine 10 mg oral tabl et (8 sources) Start: 08-11-2024 End: 08-11-2024 Problems Active Problems Problem Classification Problem Date Documented Da te Episodic/Chronic Abdominal pain (20 sources) Unspecified abdominal pain; Translations: [Epigastric pain] Onset: 4 07-03-2024 Episodic Administrative/social admission (1 source) Persons encountering health services in other specified circumstances; Translations: [Encounter for incision and drainage procedure] Onset: 5 Episodic Anxiety disorders (12 sources) Anxiety; Translations: [Anxiety disorder, unspecified] Onset: 9 07-26-2023 Chronic Comment on above: ON MED Asthma (11 sources) Asthma; Translations: [Unspecified asthma, uncomplicated] Resolved: 5 07-26-2023 Chronic Comment on above: PRN INHALER Cancer of breast (9 sources) History of malignant neoplasm of breast; Translations: [Personal history of malignant neoplasm of breast] Onset: 7 12-23-2016 Episodic Cancer of cervix (5 sources) History of malignant neoplasm of cervix; Translations: [Personal history of malignant neoplasm of cervix uteri] Onset: 5 07-24-2024 Episodic Cancer of ovary (5 sources) History of malignant neoplasm of ovary; Translations: [Personal history of malignant neoplasm of ovary] Onset: 5 07-24-2024 Episodic Cardiac dysrhythmias (4 sources) Paroxysmal ventricular tachycardia; Translations: [Paroxysmal ventricular tachycardia] Onset: 5 07-25-2024 Chronic Complication of device; implant or graft (4 sources) Disorder of cardiac pacemaker system; Translations: [Unspecified complication of cardiac and vascular prosthetic device, implant and graft, initial encounter] Onset: 5 07-24-2024 Episodic Conduction disorders (20 sources) Cardiac pacemaker in situ; Translations: [Presence of cardiac pacemaker] Onset: 7 07-26-2023 Chronic Comment on above: Medtronic Visia AF M RI [id number] 10/29/2016Medtronic [id number] right ventricular lead Congestive heart failure; nonhypertensive (20 sources) Heart failure, unspecified; Translations: [Heart failure] Onset: 2 07-21-2024 Chronic Diseases of white blood cells (20 sources) Elevated white blood cell count, unspecified; Translations: [Leukocytosis] Onset: 1 07-21-2024 Chronic Disorders of teeth and jaw (20 sources) Toothache; Translations: [Other specified disorders of teeth and supporting structures] Onset: 8 Resolved: 8 11-13-2021 Episodic E Codes: Fall (10 sources) Unspecified fall due to ice and snow, initial encounter; Translations: [Fall due to slipping on ice or snow] 03-17-2022 Episodic Esophageal disorders (20 sources) Gastroesophageal reflux disease; Translations: [Gastro-esophageal reflux disease without esophagitis] Onset: 8 07-26-2023 Chronic Essential hypertension (11 sources) Hypertensive disorder; Translations: [Essential (primary) hypertension] Onset: 5 07-23-2024 Chronic Gastritis and duodenitis (11 sources) Acute hemorrhagic gastritis; Translations: [Gastritis, unspecified, with bleeding] Onset: 5 07-23-2024 Episodic Gastroduodenal ulcer (except hemorrhage) (4 sources) Gastric ulcer; Translations: [Gastric ulcer, unspecified as acute or chronic, without hemorrhage or perforation] Onset: 1 Chronic Headache; including migraine (11 sources) Migraine; Translations: [Migraine, unspecified, not intractable, without status migrainosus] 12-25-2021 Chronic Nausea and vomiting (20 sources) Nausea with vomiting, unspecified; Translations: [Nausea and vomiting] Onset: 2 Resolved: 5 07-21-2024 Episodic Noninfectious gastroenteritis (18 sources) Inflammatory bowel disease; Translations: [Noninfective gastroenteritis and colitis, unspecified] Episodic Nonmalignant breast conditions (4 sources) Fibrocystic changes of bilateral breasts; Translations: [Diffuse cystic mastopathy of right breast] Onset: 8 06-24-2017 Chronic Nonspecific chest pain (20 sources) Chest pain; Translations: [Chest pain, unspecified] Onset: 1 12-26-2022 Episodic Open wounds of extremities (4 sources) Injury of left leg; Translations: [Unspecified open wound, left lower leg, initial encounter] Onset: 5 05-18-2024 Episodic Other aftercare (11 sources) Long-term current use of 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; Translations: [MCFP (current) use of 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s] Onset: 5 07-26-2023 Episodic Other aftercare (1 source) Patient encounter status; Translations: [Encounter for therapeutic drug level monitoring] Onset: 5 07-26-2024 Episodic Other aftercare (1 source) MCFP (current) use of 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s; 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] Onset: 5 Episodic Other and ill-defined heart disease (2 sources) Cardiomegaly; Translations: [Cardiomegaly] Onset: Chronic Other and ill-defined heart disease (1 source) Hypertrophic cardiomegaly ; Translations: [Cardiomegaly] 08-15-2024 Chronic Other circulatory disease (10 sources) History of cardiomyopathy; Translations: [Personal history of other diseases of the circulatory system] 07-21-2024 Episodic Other circulatory disease (1 source) Personal history of other diseases of the circulatory system; Translations: [Personal history of other diseases of the circulatory system] Onset: Episodic Other gastrointestinal disorders (1 source) Irritable bowel syndrome without diarrhea; Translations: [Irritable bowel syndrome, unspecified] Onset: 5 Chronic Other gastrointestinal disorders (14 sources) Ascites; Translations: [Other ascites] Onset: 5 07-04-2023 Episodic Other gastrointestinal disorders (6 sources) Diarrhea; Translations: [Diarrhea, unspecified] 08-08-2024 Episodic Other injuries and conditions due to external causes (1 source) Unspecified injury of left lower leg, initial encounter; Translations: [Unspecified injury of left lower leg, initial encounter] Onset: 5 Episodic Other liver diseases (4 sources) Large liver; Translations: [Hepatomegaly, not elsewhere classified] Onset: 5 07-05-2024 Episodic Other screening for suspected conditions (not mental disorders or infectious disease) (4 sources) Abnormal findings on diagnostic imaging of other specified body structures; Translations: [Nonspecific (abnormal) findings on radiological and other examination of other intrathoracic organs] Onset: 5 05-15-2024 Chronic Other screening for suspected conditions (not mental disorders or infectious disease) (13 sources) Raised cardiac enzyme or marker; Translations: [Other specified abnormal findings of blood chemistry] Onset: 5 07-21-2024 Episodic Pia-; endo-; and myocarditis; cardiomyopathy (except that caused by tuberculosis or sexually transmitted disease) (20 sources) Hypertrophic obstructive cardiomyopathy; 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 hypertrophic cardiomyopathy] Onset: 2 12-26-2022 Chronic Pia-; endo-; and myocarditis; cardiomyopathy (except that caused by tuberculosis or sexually transmitted disease) (15 sources) Vegetation of heart; Translations: [Acute and subacute infective endocarditis] Onset: 5 07-22-2024 Episodic Phlebitis; thrombophlebitis and thromboembolism (5 sources) H/O: Deep vein thrombosis; Translations: [Personal history of other venous thrombosis and embolism] Onset: 5 07-24-2024 Episodic Pleurisy; pneumothorax; pulmonary collapse (8 sources) Pleural effusion; Translations: [Pleural effusion, not elsewhere classified] 07-04-2023 Episodic Pulmonary heart disease (20 sources) Pulmonary hypertension, unspecified; Translations: [Severe pulmonary hypertension] Onset: 5 07-21-2024 Chronic Pulmonary heart disease (7 sources) Pulmonary thromboembolism; Translations: [Other pulmonary embolism without acute cor pulmonale] Onset: 7 01-22-2017 Episodic Residual codes; unclassified (11 sources) Insomnia; Translations: [Insomnia, unspecified] Onset: 5 07-26-2023 Episodic Residual codes; unclassified (1 source) Past history of procedure; Translations: [Personal history of other medical treatment] 07-25-2024 Episodic Residual codes; unclassified (4 sources) History of left mastectomy; Translations: [Acquired absence of left breast and nipple] Onset: 5 07-24-2024 Episodic Residual codes; unclassified (1 source) Acquired absence of left breast and nipple; Translations: [H/O left mastectomy] Onset: Episodic Residual codes; unclassified (1 source) Insomnia, unspecified; Translations: [Insomnia, unspecified type] Onset: 5 Episodic Skin and subcutaneous tissue infections (16 sources) Abscess of lower leg; Translations: [Cutaneous abscess of left lower limb] Onset: 5 05-20-2024 Episodic Sprains and strains (10 sources) Sprain of knee; Translations: [Sprain of unspecified site of left knee, initial encounter] 03-17-2022 Episodic Substance-related disorders (4 sources) Nicotine dependence, unspecified, uncomplicated; Translations: [Tobacco use disorder] Onset: 2 05-15-2024 Chronic Unclassified (4 sources) or return to ER Unclassified (1 source) Transaminitis; Translations: [Transaminitis] Onset: 5 Unclassified (3 sources) for gynecology evaluation Unclassified (4 sources) SUMMARY Onset: 5 03-09-2021 Past or Other Problems Problem Classification Problem Date Documented Date Episodic/Chronic Cardiac dysrhythmias (4 sources) Palpitations; Translations: [Palpitations] Onset: 10-02-2019 10-02-2019 Episodic Fluid and electrolyte disorders (4 sources) Hypokalemia; Translations: [Hypokalemia] Onset: 11-07-2013 Episodic Mood disorders (4 sources) Depressive disorder; Translations: [Depression] Onset: 11-06-2013 Resolved: 05-23-2014 03-09-2021 Chronic Nonmalignant breast conditions (8 sources) Lump in left breast; Translations: [Unspecified lump in the left breast, unspecified quadrant] Onset: 12-23-2016 12-23-2016 Episodic Other and unspecified benign neoplasm (4 sources) Benign neoplasm of left breast; Translations: [Benign neoplasm of breast] Onset: 06-24-2017 06-24-2017 Episodic Other circulatory disease (4 sources) Orthostatic hypotension; Translations: [Orthostatic hypotension] Onset: 11-07-2013 Resolved: 05-23-2014 03-09-2021 Episodic Other connective tissue disease (4 sources) Neuropathic pain; Translations: [Neuralgia and neuritis, unspecified] Onset: 06-17-2014 12-07-2014 Episodic Other connective tissue disease (4 sources) Achilles tendinitis; Translations: [Achilles tendinitis, unspecified leg] Onset: 10-31-2013 Resolved: 05-23-2014 05-23-2014 Episodic Other non-traumatic joint disorders (4 sources) Ankle pain; Translations: [Pain in right ankle and joints of right foot] Onset: 10-03-2013 Resolved: 05-23-2014 05-23-2014 Episodic Pneumonia (except that caused by tuberculosis or sexually transmitted disease) (4 sources) Pneumonia; Translations: [Pneumonia, unspecified organism] Onset: 04-14-2013 Resolved: 05-23-2014 05-23-2014 Episodic Residual codes; unclassified (8 sources) BRCA2 gene mutation positive; Translations: [Genetic susceptibility to malignant neoplasm of breast] Onset: 12-23-2016 01-22-2017 Episodic Residual codes; unclassified (4 sources) Family history of breast cancer; Translations: [Family history of malignant neoplasm of breast] Onset: 06-24-2017 06-24-2017 Episodic Syncope (8 sources) Near syncope; Translations: [Syncope and collapse] Onset: 06-27-2013 Resolved: 05-23-2014 05-23-2014 Episodic Results Test Name Value Interpretation Reference Range Facility Absolute lymphocyte countOrd ered By: ED PROVIDER on 08-20-2024 Lymphocytes Auto (Unsp spec) [#/Vol] 1.29 10*3/uL 0.83-4.[address] [facility] Anion gap in Serum or Plasma Ordered By: Simona Fernandez on 08-20-2024 Anion gap [Moles/Vol] 13 mmol/L 5-15 [facility] Automated lymphocyte count a s percentage of total leukocytesOrdered By: ED PROVIDER on 08-20-2024 Lymphocytes/100 WBC Auto (Unsp spec) 10.9 % Low 19-[address] [facility] BUN/creatinine ratioOrdered By: Simona Fernandez on 08-20-2024 Urea nitrogen/Creatinine [Mass ratio] 16.5 mg/mg 10-[address] [facility] Basophil percentageOrdered B y: ED PROVIDER on 08-20-2024 Basophils/100 WBC (Bld) 0.4 % 0-1 [facility] Bilirubin Test strip Ql (U)O rdered By: Simona Fernandez on 08-20-2024 Bilirubin Ql (U) Negative Negative [facility] Bilirubin, totalOrdered By: Simona Fernandez on 08-20-2024 Bilirubin [Mass/Vol] 0.67 mg/dL 0.00-1.30 [facility] Carbon dioxide, total [Moles /volume] in Central venous bloodOrdered By: Simona Fernandez on 08-20-2024 CO2 [Moles/Vol] 19.0 mmol/L Low 21.0-32.[address] [facility] Chloride assayOrdered By: Demetrio Fernandez on 08-20-2024 Chloride [Moles/Vol] 104 mmol/L 98-108 [facility] Eosinophil percentageOrdered By: ED PROVIDER on 08-20-2024 Eosinophils/100 WBC (Bld) 0.2 % 0-[address] [facility] Erythrocyte distribution wid th ratioOrdered By: ED PROVIDER on 08-20-2024 Erythrocyte distribution width (RBC) [Ratio] 13.6 % 11.6-14.[address] [facility] Erythrocyte distribution wid th standard deviationOrdered By: ED PROVIDER on 08-20-2024 Erythrocyte distribution width (RBC) [Ratio] 47.5 fl High 35.1-43.[address] [facility] Glomerular filtration rate ( GFR) estimation/1.73 sq m using serum, plasma, or whole bOrdered By: Simona Fernandez on 08-20-2024 GFR/1.73 sq M.predicted among non-blacks MDRD (S/P/Bld) [Vol rate/Area] 74 mL/min/{1.73_m2} >[address] [facility] Hematocrit Auto (Bld) [Volum e fraction]Ordered By: ED PROVIDER on 08-20-2024 Hematocrit (Bld) [Volume fraction] 38.1 % 37-[address] [facility] Hemoglobin measurementOrdere d By: ED PROVIDER on 08-20-2024 Hemoglobin (Bld) [Mass/Vol] 12.6 g/dL 12.0-15.[address] [facility] Immature granulocytes/100 WB C Auto (Bld)Ordered By: ED PROVIDER on 08-20-2024 Immature granulocytes/100 WBC (Bld) 0.600 % 0.0-0.[address] [facility] Ketones Test strip Ql (U)Ord ered By: Simona Fernandez on 08-20-2024 Ketones Ql (U) Negative Negative [facility] MCV (mean corpuscular volume ) determinationOrdered By: ED PROVIDER on 08-20-2024 MCV (RBC) [Entitic vol] 96.0 fL 81-99 [facility] Mean corpuscular hemoglobin (MCH) determinationOrdered By: ED PROVIDER on 08-20-2024 MCH (RBC) [Entitic mass] 31.7 pg 27.0-32.[address] [facility] Monocyte percentageOrdered B y: ED PROVIDER on 08-20-2024 Monocytes/100 WBC (Bld) 4.6 % 0-10 [facility] Mucus LM Ql (Urine sed)Order ed By: Simona Fernandez on 08-20-2024 Mucus Ql (Urine sed) 0 SEEN /hpf [facility] Natriuretic peptide.B prohor abbey N-Terminal [Mass/volume] in Serum or PlasmaOrdered By: Simona Fernandez on 08-20-2024 Natriuretic peptide.B prohormone N-Terminal [Mass/Vol] 3711 pg/mL High <[address] [facility] Neutrophil percentageOrdered By: ED PROVIDER on 08-20-2024 Neutrophils/100 WBC (Bld) 83.3 % High 47-[address] [facility] Nitrite Test strip Ql (U)Ord ered By: Simona Fernandez on 08-20-2024 Nitrite Ql (U) Negative Negative [facility] No Panel InformationOrdered By: Simona Fernandez on 08-20-2024 115 U/L High <[address] [facility] Platelet countOrdered By: ED PROVIDER on 08-20-2024 Platelets (Bld) [#/Vol] 373 10*3/uL 150-[address] [facility] Potassium measurement (mass/ volume)Ordered By: Simona Fernandez on 08-20-2024 Potassium (Unsp spec) [Mass/Vol] 4.9 mmol/L 3.3-5.[address] [facility] Protein Test strip Ql (U)Ord ered By: Simona Fernandez on 08-20-2024 Protein Ql (U) 15 mg/dl High Negative [facility] RBC Auto (Bld) [#/Vol]Ordere d By: ED PROVIDER on 08-20-2024 RBC (Bld) [#/Vol] 3.97 10*6/uL Low 4.2-5.4 [facility] Serum beta-hCG test, qualita tiveOrdered By: Simona Fernandez on 08-20-2024 Beta HCG ( test) Ql Negative [facility] Serum creatinine measurement (mass/volume)Ordered By: Simona Fernandez on 08-20-2024 Creatinine [Mass/Vol] 0.97 mg/dL 0.70-1.20 [facility] Serum globulin measurementOr dered By: Simona Fernandez on 08-20-2024 Globulin (S) [Mass/Vol] 2.7 g/dL 2.2-4.2 [facility] Serum glucose measurement (m ass/volume)Ordered By: Simona Fernandez on 08-20-2024 Glucose [Mass/Vol] 118 mg/dL High 70-99 [facility] Serum or plasma alanine hair otransferase (ALT) measurementOrdered By: Simona Fernandez on 08-20-2024 ALT [Catalytic activity/Vol] 103 U/L High <[address] [facility] Serum or plasma albumin leslie urement (mass/volume)Ordered By: Simona Fernandez on 08-20-2024 Albumin [Mass/Vol] 4.0 g/dL 3.5-5.0 [facility] Serum or plasma albumin/glob ulin mass ratioOrdered By: Simona Fernandez on 08-20-2024 Albumin/Globulin [Mass ratio] 1.5 {ratio} 0.9-2.[address] [facility] Serum or plasma alkaline delfin sphatase measurementOrdered By: Simona Fernandez on 08-20-2024 ALP [Catalytic activity/Vol] 182 U/L High 35-[address] [facility] Serum or plasma calcium leslie urement (mass/volume)Ordered By: Simona Fernandez on 08-20-2024 Calcium [Mass/Vol] 9.1 mg/dL 7.6-11.0 [facility] Serum or plasma urea nitroge n measurement (mass/volume)Ordered By: Simona Fernandez on 08-20-2024 Urea nitrogen [Mass/Vol] 16 mg/dL 4-[address] [facility] Sodium levelOrdered By: Shanika Fernandez on 08-20-2024 Sodium [Moles/Vol] 136 mmol/L 133-145 [facility] Squamous epithelial cells de tection in urine sediment by light microscopyOrdered By: Simona Fernandez on 08-20-2024 Epithelial cells.squamous LM Ql (Urine sed) 0-5 SEEN /hpf 5-[address] [facility] Total proteinOrdered By: Cherri Fernandez on 08-20-2024 Protein [Mass/Vol] 6.6 g/dL 5.9-8.4 [facility] Urine clarityOrdered By: Cherri Fernandez on 08-20-2024 Clarity (U) Clear Clear [facility] Urine color determinationOrd ered By: Simona Fernandez on 08-20-2024 Color (U) Straw Yellow [facility] Urine glucose detectionOrder ed By: Simona Fernandez on 08-20-2024 Glucose Ql (U) Normal mg/dl Normal [facility] Urine leukocyte esterase det ection by dipstickOrdered By: Simona Fernandez on 08-20-2024 Leukocyte esterase Test strip Ql (U) Negative Negative [facility] Urine pHOrdered By: Simona lucio on 08-20-2024 pH (U) 6.5 [pH] 5.0 - 8.[address] [facility] Urine sediment bacteria coun t by microscopy (number/high power field)Ordered By: Simona Fernandez on 08-20-2024 Bacteria LM.HPF (Urine sed) [#/Area] 0 /[HPF] None Seen [facility] Urine specific gravity measu rementOrdered By: Simona Fernandez on 08-20-2024 Specific gravity (U) [Rel density] 1.010 1.002-1.[address] [facility] Urine urobilinogen measureme ntOrdered By: Simona Fernandez on 08-20-2024 Urobilinogen Ql (U) Normal mg/dl Normal [facility] White blood cell (WBC) count Ordered By: ED PROVIDER on 08-20-2024 WBC (Bld) [#/Vol] 11.9 10*3/uL High 4.4-11.0 [facility] White blood cell countOrdere d By: Simona Fernandez on 08-20-2024 White blood cell count 0-5 SEEN /hpf 0-[address] [facility] Ova and Parasites 8623on OP Normal [facility] Comment on above: Performed By: #### L 7000.0700, M100.6796, M100.637, L7400.3300, M100.0605, M600.5000 ####[facility] [address] [place], [place], [id number] SANDRA Comprehensive Panelon ANTI-DNA (DS)AB <1 Normal 0-[address] [facility] Comment on above: Result Comment: Nega tive <5 Equivocal 5 - 9 Positive >9 Performed By: #### L 504.2610, L100.9950, L3300.1200, L100.0100, L501.9520, L300.3900, L3410.2400, L3200.1100, L3100.6900, L101.9900, L500.4050, L501.6710, L501.9985, L503.5510, L3200.0500, L3100.5440, L5500.0410, L3100.3425, L503.6150, L3300.0100, L3100.1850, L3400.0700, L503.6550, L3300.1800 ####[facility] [address] [place], [place], [address] ANTI-SS-A < 0.2 Normal 0.0-0.[address] [facility] Comment on above: Performed By: #### L 504.2610, L100.9950, L3300.1200, L100.0100, L501.9520, L300.3900, L3410.2400, L3200.1100, L3100.6900, L101.9900, L500.4050, L501.6710, L501.9985, L503.5510, L3200.0500, L3100.5440, L5500.0410, L3100.3425, L503.6150, L3300.0100, L3100.1850, L3400.0700, L503.6550, L3300.1800 ####[facility] [address] [place], [place], [id number] ANTI-SS-B 0.2 AI Normal 0.0-0.[address] [facility] Comment on above: Performed By: #### L 504.2610, L100.9950, L3300.1200, L100.0100, L501.9520, L300.3900, L3410.2400, L3200.1100, L3100.6900, L101.9900, L500.4050, L501.6710, L501.9985, L503.5510, L3200.0500, L3100.5440, L5500.0410, L3100.3425, L503.6150, L3300.0100, L3100.1850, L3400.0700, L503.6550, L3300.1800 ####[facility] [address] [place], [address] Abdomen/Pelvis without Conto n 08-11-2024 Abdomen/Pelvis without Cont Normal [facility] Absolute lymphocyte countOrd ered By: Gage Sharma on 08-11-2024 Lymphocytes Auto (Unsp spec) [#/Vol] 1.19 10*3/uL 0.83-4.[address] [facility] Allergen, Food Profileon CLAM <0.10 Normal Class [address] [facility] Comment on above: Performed By: #### L 504.2610, L100.9950, L3300.1200, L100.0100, L501.9520, L300.3900, L3410.2400, L3200.1100, L3100.6900, L101.9900, L500.4050, L501.6710, L501.9985, L503.5510, L3200.0500, L3100.5440, L5500.0410, L3100.3425, L503.6150, L3300.0100, L3100.1850, L3400.0700, L503.6550, L3300.1800 ####[facility] [address] [place], [address] CODFISH <0.10 Normal Class [address] [facility] Comment on above: Performed By: #### L 504.2610, L100.9950, L3300.1200, L100.0100, L501.9520, L300.3900, L3410.2400, L3200.1100, L3100.6900, L101.9900, L500.4050, L501.6710, L501.9985, L503.5510, L3200.0500, L3100.5440, L5500.0410, L3100.3425, L503.6150, L3300.0100, L3100.1850, L3400.0700, L503.6550, L3300.1800 ####[facility] [address] [place], [address] COMMENT Comment Normal . [facility] Comment on above: Result Comment: Lupe urias of Specific IgE Class Description of Class ----- < 0.10 0 Negative 0.10 - 0.31 0/I Equivocal/Low 0.32 - 0.55 I Low 0.56 - 1.40 II Moderate 1.41 - 3.90 III High 3.91 - 19.00 IV Very High 19.01 - 100.00 V Very High >100.00 Very High Performed By: #### L 504.2610, L100.9950, L3300.1200, L100.0100, L501.9520, L300.3900, L3410.2400, L3200.1100, L3100.6900, L101.9900, L500.4050, L501.6710, L501.9985, L503.5510, L3200.0500, L3100.5440, L5500.0410, L3100.3425, L503.6150, L3300.0100, L3100.1850, L3400.0700, L503.6550, L3300.1800 ####[facility] [address] [place], [address] CORN <0.10 Normal Class [address] [facility] Comment on above: Performed By: #### L 504.2610, L100.9950, L3300.1200, L100.0100, L501.9520, L300.3900, L3410.2400, L3200.1100, L3100.6900, L101.9900, L500.4050, L501.6710, L501.9985, L503.5510, L3200.0500, L3100.5440, L5500.0410, L3100.3425, L503.6150, L3300.0100, L3100.1850, L3400.0700, L503.6550, L3300.1800 ####[facility] [address] [place], [address] EGG, WHITE <0.10 Normal Class [address] [facility] Comment on above: Performed By: #### L 504.2610, L100.9950, L3300.1200, L100.0100, L501.9520, L300.3900, L3410.2400, L3200.1100, L3100.6900, L101.9900, L500.4050, L501.6710, L501.9985, L503.5510, L3200.0500, L3100.5440, L5500.0410, L3100.3425, L503.6150, L3300.0100, L3100.1850, L3400.0700, L503.6550, L3300.1800 ####[facility] [address] [place], [address] MILK (COW) 0.24 kU/L Abnormal Class 0/I [facility] Comment on above: Performed By: #### L 504.2610, L100.9950, L3300.1200, L100.0100, L501.9520, L300.3900, L3410.2400, L3200.1100, L3100.6900, L101.9900, L500.4050, L501.6710, L501.9985, L503.5510, L3200.0500, L3100.5440, L5500.0410, L3100.3425, L503.6150, L3300.0100, L3100.1850, L3400.0700, L503.6550, L3300.1800 ####[facility] [address] [facility] [place], [place], [id number] PEANUT <0.10 Normal Class [address] [facility] Comment on above: Performed By: #### L 504.2610, L100.9950, L3300.1200, L100.0100, L501.9520, L300.3900, L3410.2400, L3200.1100, L3100.6900, L101.9900, L500.4050, L501.6710, L501.9985, L503.5510, L3200.0500, L3100.5440, L5500.0410, L3100.3425, L503.6150, L3300.0100, L3100.1850, L3400.0700, L503.6550, L3300.1800 ####[place] [address] [facility] [place], [place], [id number] SCALLOP <0.10 Normal Class [address] [facility] Comment on above: Performed By: #### L 504.2610, L100.9950, L3300.1200, L100.0100, L501.9520, L300.3900, L3410.2400, L3200.1100, L3100.6900, L101.9900, L500.4050, L501.6710, L501.9985, L503.5510, L3200.0500, L3100.5440, L5500.0410, L3100.3425, L503.6150, L3300.0100, L3100.1850, L3400.0700, L503.6550, L3300.1800 ####[address] [place] [facility], [place], [id number] SESAME SEED <0.10 Normal Class [address] [facility] Comment on above: Result Comment: Perf ormed at: [facility] [address] [id number] Director: Victor M Hargrove PhD, Phone: [phone] at: [facility] [address] [id number] Director: Isac Kemp MD, Phone: [phone] Performed By: #### L 504.2610, L100.9950, L3300.1200, L100.0100, L501.9520, L300.3900, L3410.2400, L3200.1100, L3100.6900, L101.9900, L500.4050, L501.6710, L501.9985, L503.5510, L3200.0500, L3100.5440, L5500.0410, L3100.3425, L503.6150, L3300.0100, L3100.1850, L3400.0700, L503.6550, L3300.1800 ####[facility] [address] [place], [address] SHRIMP <0.10 Normal Class [address] [facility] Comment on above: Performed By: #### L 504.2610, L100.9950, L3300.1200, L100.0100, L501.9520, L300.3900, L3410.2400, L3200.1100, L3100.6900, L101.9900, L500.4050, L501.6710, L501.9985, L503.5510, L3200.0500, L3100.5440, L5500.0410, L3100.3425, L503.6150, L3300.0100, L3100.1850, L3400.0700, L503.6550, L3300.1800 ####[facility] [address] [place], [address] SOYBEAN <0.10 Normal Class [address] [facility] Comment on above: Performed By: #### L 504.2610, L100.9950, L3300.1200, L100.0100, L501.9520, L300.3900, L3410.2400, L3200.1100, L3100.6900, L101.9900, L500.4050, L501.6710, L501.9985, L503.5510, L3200.0500, L3100.5440, L5500.0410, L3100.3425, L503.6150, L3300.0100, L3100.1850, L3400.0700, L503.6550, L3300.1800 ####[facility] [address] [place], [address] WALNUT,(Food) <0.10 Normal Class [address] [facility] Comment on above: Performed By: #### L 504.2610, L100.9950, L3300.1200, L100.0100, L501.9520, L300.3900, L3410.2400, L3200.1100, L3100.6900, L101.9900, L500.4050, L501.6710, L501.9985, L503.5510, L3200.0500, L3100.5440, L5500.0410, L3100.3425, L503.6150, L3300.0100, L3100.1850, L3400.0700, L503.6550, L3300.1800 ####[facility] [address] [facility] [place], [place], [id number] WHEAT <0.10 Normal Class [address] [facility] Comment on above: Performed By: #### L 504.2610, L100.9950, L3300.1200, L100.0100, L501.9520, L300.3900, L3410.2400, L3200.1100, L3100.6900, L101.9900, L500.4050, L501.6710, L501.9985, L503.5510, L3200.0500, L3100.5440, L5500.0410, L3100.3425, L503.6150, L3300.0100, L3100.1850, L3400.0700, L503.6550, L3300.1800 ####[facility] [address] [place], [address] Anion gap in Serum or Plasma Ordered By: Gage Sharma on 08-11-2024 Anion gap [Moles/Vol] 12 mmol/L 07-26 [facility] Automated lymphocyte count a s percentage of total leukocytesOrdered By: [facility] Cent[facility]indiWay[facility] SystemLynne on 08-11-2024 Lymphocytes/100 WBC Auto (Unsp spec) 11.4 % Low [facility] BUN/creatinine ratioOrdered By: Novant Healthgett on 08-11-2024 Urea nitrogen/Creatinine [Mass ratio] 12.1 mg/mg 12-[address] [facility] Basic Metabolic Profile (BMP )on 08-11-2024 BUN/CRE 12.1 RATIO Normal 12-[address] [facility] Comment on above: Performed By: #### L 500.2500, L503.6005 ####[facility] [address] [place], [address] Calcium [Mass/Vol] 9.5 mg/dL Normal 7.6-11.0 [facility] Comment on above: Performed By: #### L 500.2500, L503.6005 ####[facility] [address] [place], [address] Chloride [Moles/Vol] 103 mmol/L Normal 98-108 [facility] Comment on above: Performed By: #### L 500.2500, L503.6005 ####[facility] [address] [place], [address] CO2 [Moles/Vol] 22.0 mmol/L Normal 21.0-32.[address] [facility] Comment on above: Performed By: #### L 500.2500, L503.6005 ####[facility] [address] [place], [address] Creatinine [Mass/Vol] 0.74 mg/dL Normal 0.70-1.20 [facility] Comment on above: Performed By: #### L 500.2500, L503.6005 ####[facility] [address] [place], [address] ECRCL 83.77 ml/min Normal 50-[address] [facility] Comment on above: Performed By: #### L 500.2500, L503.6005 ####[facility] [address] [place], [address] GAP 12 Normal 5-[address] [facility] Comment on above: Performed By: #### L 500.2500, L503.6005 ####[facility] [address] [place], [address] GFR/1.73 sq M.predicted among non-blacks MDRD (S/P/Bld) [Vol rate/Area] 103 mL/min/{1.73_m2} Normal >[address] [facility] Comment on above: Result Comment: mL/m in/1.73m2 CKD-EPI Creatinine Equation (2020) Performed By: #### L 500.2500, L503.6005 ####[facility] [address] [place], [address] Glucose [Mass/Vol] 90 mg/dL Normal 70-99 [facility] Comment on above: Performed By: #### L 500.2500, L503.6005 ####[facility] [address] [place], [address] Potassium [Moles/Vol] 4.2 mmol/L Normal 3.3-5.1 [facility] Comment on above: Performed By: #### L 500.2500, L503.6005 ####[facility] [address] [place], [address] Sodium [Moles/Vol] 137 mmol/L Normal 133-145 [facility] Comment on above: Performed By: #### L 500.2500, L503.6005 ####[facility] [address] [place], [address] Urea nitrogen [Mass/Vol] 9 mg/dL Normal 4-[address] [facility] Comment on above: Performed By: #### L 500.2500, L503.6005 ####[facility] [address] [place], [address] Basophil percentageOrdered B y: Gage Sharma on 08-11-2024 Basophils/100 WBC (Bld) 0.9 % 0-1 [facility] Bilirubin Test strip Ql (U)O rdered By: Gage Sharma on 08-11-2024 Bilirubin Ql (U) Negative Negative [facility] Bilirubin directOrdered By: Gagejuan CasanovaLynne on 08-11-2024 Bilirubin.direct [Mass/Vol] 0.12 mg/dL 0.00-0.[address] [facility] Bilirubin, totalOrdered By: Gagejuan Sharma on 08-11-2024 Bilirubin [Mass/Vol] 0.29 mg/dL 0.00-1.30 [facility] CBC W/Diff, Automatedon 07-14 Absolute Lymph 1.19 X10 3/uL Normal 0.83-4.[address] [facility] Comment on above: Performed By: #### L 100.0100 ####[facility] [address] [place], [address] Absolute Neut 8.4 X10 3/uL High 2.0-7.[address] [facility] Comment on above: Performed By: #### L 100.0100 ####[facility] [address] [place], [address] Basophils/100 WBC (Bld) 0.9 % Normal 0-1 [facility] Comment on above: Performed By: #### L 100.0100 ####[facility] [address] [place], [address] Eosinophils/100 WBC (Bld) 1.9 % Normal 0-[address] [facility] Comment on above: Performed By: #### L 100.0100 ####[facility] [address] [place], [address] Erythrocyte distribution width (RBC) [Ratio] 13.1 % Normal 11.6-14.[address] [facility] Comment on above: Performed By: #### L 100.0100 ####[facility] [address] [place], [address] Hematocrit (Bld) [Volume fraction] 40.9 % Normal 37-[address] [facility] Comment on above: Performed By: #### L 100.0100 ####[facility] [address] [place], [address] Hemoglobin (Bld) [Mass/Vol] 13.5 g/dL Normal 12.0-15.[address] [facility] Comment on above: Performed By: #### L 100.0100 ####[facility] [address] [place], [address] IG% 0.700 Normal 0.0-0.[address] [facility] Comment on above: Result Comment: IG% - Immature Granulocytes (promyelocytes, myelocytes andmetamyelocytes) > 1% indicates that a LEFT SHIFT is Present. Performed By: #### L 100.0100 ####[facility] [address] [place], [address] Lymphocytes/100 WBC (Bld) 11.4 % Low 19-[address] [facility] Comment on above: Performed By: #### L 100.0100 ####[facility] [address] [place], [address] MCH (RBC) [Entitic mass] 31.7 pg Normal 27.0-32.[address] [facility] Comment on above: Performed By: #### L 100.0100 ####[facility] [address] [place], [address] MCHC (RBC) [Mass/Vol] 33.0 g/dL Normal 32-36 [facility] Comment on above: Performed By: #### L 100.0100 ####[facility] [address] [place], [address] MCV (RBC) [Entitic vol] 96.0 fL Normal 81-99 [facility] Comment on above: Performed By: #### L 100.0100 ####[facility] [address] [place], [address] Monocytes/100 WBC (Bld) 4.9 % Normal 0-10 [facility] Comment on above: Performed By: #### L 100.0100 ####[facility] [address] [place], [address] Neutrophils/100 WBC (Bld) 80.2 % High 47-[address] [facility] Comment on above: Performed By: #### L 100.0100 ####[facility] [address] [place], [address] Nucleated RBC (Bld) [#/Vol] 0 10*3/uL Normal 0-[address] [facility] Comment on above: Performed By: #### L 100.0100 ####[facility] [address] [place], [address] Platelet mean volume (Bld) [Entitic vol] 9.9 fL Normal 6.2-12.[address] [facility] Comment on above: Performed By: #### L 100.0100 ####[facility] [address] [place], [address] Platelets (Bld) [#/Vol] 433 10*3/uL Normal 150-[address] [facility] Comment on above: Performed By: #### L 100.0100 ####[facility] [address] [place], [address] RBC (Bld) [#/Vol] 4.26 10*6/uL Normal 4.2-5.4 [facility] Comment on above: Performed By: #### L 100.0100 ####[facility] [address] [place], [address] RDW SD 46.5 fl High 35.1-43.[address] [facility] Comment on above: Performed By: #### L 100.0100 ####[facility] [address] [place], [address] WBC (Bld) [#/Vol] 10.5 10*3/uL Normal 4.4-11.0 [facility] Comment on above: Performed By: #### L 100.0100 ####[facility] [address] [place], [address] Calprotectin, Stoolon [address] 13 ug/g Normal 0-[address] [facility] Comment on above: Result Comment: Conc entration Interpretation Follow-Up< 5 - 50 ug/g Normal None>50 -120 ug/g Borderline Re-evaluate in 4-6 weeks >120 ug/g Abnormal Repeat as clinically indicatedPerformed at: - [facility] [address] [id number] Director: Isac Kemp MD, Phone: [phone] Performed By: #### L 7000.0700, M100.6796, M100.637, L7400.3300, M100.0605, M600.5000 ####[facility] [address] [place], [address] Carbon dioxide, total [Moles /volume] in Central venous bloodOrdered By: Gage Sharma on 08-11-2024 CO2 [Moles/Vol] 22.0 mmol/L 21.0-32.[address] [facility] Chloride assayOrdered By: Jose Maria Sharma on 08-11-2024 Chloride [Moles/Vol] 103 mmol/L 98-108 [facility] Summary on 08-11-2024 Emergency Department Summary Normal [facility] Eosinophil percentageOrdered By: Gage Sharma on 08-11-2024 Eosinophils/100 WBC (Bld) 1.9 % 0-[address] [facility] Erythrocyte distribution wid th ratioOrdered By: Gage Sharma on 08-11-2024 Erythrocyte distribution width (RBC) [Ratio] 13.1 % 11.6-14.[address] [facility] Erythrocyte distribution wid th standard deviationOrdered By: Gage Batista on 08-11-2024 Erythrocyte distribution width (RBC) [Ratio] 46.5 fl High 35.1-43.[address] [facility] Glomerular filtration rate ( GFR) estimation/1.73 sq m using serum, plasma, or whole bOrdered By: Gage Sharma on 08-11-2024 GFR/1.73 sq M.predicted among non-blacks MDRD (S/P/Bld) [Vol rate/Area] 103 mL/min/{1.73_m2} >[address] [facility] Hematocrit Auto (Bld) [Volum e fraction]Ordered By: Gage Sharma on 08-11-2024 Hematocrit (Bld) [Volume fraction] 40.9 % 37-[address] [facility] Hemoglobin measurementOrdere d By: Gage Sharma on 08-11-2024 Hemoglobin (Bld) [Mass/Vol] 13.5 g/dL 12.0-15.[address] [facility] Immature granulocytes/100 WB C Auto (Bld)Ordered By: Gage Sharma on 08-11-2024 Immature granulocytes/100 WBC (Bld) 0.700 % 0.0-0.[address] [facility] Ketones Test strip Ql (U)Ord ered By: Gage Sharma on 08-11-2024 Ketones Ql (U) Negative Negative [facility] Lactic Acidon 08-11-2024 Lactate [Moles/Vol] mmol/L Normal 0.0-2.0 [facility] Comment on above: Order Comment: Y Performed By: #### L 500.2500, L503.6005 ####[facility] [address] [place], [address] Lipaseon 08-11-2024 Lipase [Catalytic activity/Vol] 17 U/L Normal 13-[address] [facility] Comment on above: Result Comment: Liam rader note:LIPASE revised reference range effective 22.New Lipase methodology. Expected to produce lower valuesthan the previous assay method.NEW Reference Range: 13 - 75 U/L Performed By: #### L 501.2450, L500.3400 ####[facility] [address] [place], [address] Liver Profileon 08-11-2024 Albumin [Mass/Vol] 4.0 g/dL Normal 3.5-5.0 [facility] Comment on above: Performed By: #### L 501.2450, L500.3400 ####[facility] [address] [place], [address] ALK PHOS 173 U/L High 35-[address] [facility] Comment on above: Performed By: #### L 501.2450, L500.3400 ####[facility] [address] [place], [address] ALT [Catalytic activity/Vol] 32 U/L Normal <=[address] [facility] Comment on above: Performed By: #### L 501.2450, L500.3400 ####[facility] [address] [place], [address] AST [Catalytic activity/Vol] 38 U/L High <=[address] [facility] Comment on above: Performed By: #### L 501.2450, L500.3400 ####[facility] [address] [place], [address] Bilirubin [Mass/Vol] 0.29 mg/dL Normal 0.00-1.30 [facility] Comment on above: Performed By: #### L 501.2450, L500.3400 ####[facility] [address] [place], [address] Bilirubin.direct [Mass/Vol] 0.12 mg/dL Normal 0.00-0.[address] [facility] Comment on above: Performed By: #### L 501.2450, L500.3400 ####[facility] [address] [place], [address] Globulin (S) [Mass/Vol] 3.1 g/dL Normal 2.2-4.2 [facility] Comment on above: Performed By: #### L 501.2450, L500.3400 ####[facility] [address] [place], [address] T PROT 7.2 g/dL Normal 5.9-8.[address] [facility] Comment on above: Performed By: #### L 501.2450, L500.3400 ####[facility] [address] [place], [address] MCV (mean corpuscular volume ) determinationOrdered By: Gage Sharma on 08-11-2024 MCV (RBC) [Entitic vol] 96.0 fL 81-99 [facility] Mean corpuscular hemoglobin (MCH) determinationOrdered By: Gage Sharma on 08-11-2024 MCH (RBC) [Entitic mass] 31.7 pg 27.0-32.[address] [facility] Monocyte percentageOrdered B y: Gage Sharma on 08-11-2024 Monocytes/100 WBC (Bld) 4.9 % 0-10 [facility] Mucus LM Ql (Urine sed)Order ed By: Gage Sharma on 08-11-2024 Mucus Ql (Urine sed) 0 SEEN /hpf [facility] Neutrophil percentageOrdered By: Gage Sharma on 08-11-2024 Neutrophils/100 WBC (Bld) 80.2 % High 47-[address] [facility] Nitrite Test strip Ql (U)Ord ered By: Gage Sharma on 08-11-2024 Nitrite Ql (U) Negative Negative [facility] No Panel InformationOrdered By: Gage Sharma on 08-11-2024 38 U/L High <[address] [facility] Platelet countOrdered By: Jose Maria Sharma on 08-11-2024 Platelets (Bld) [#/Vol] 433 10*3/uL 150-[address] [facility] Potassium measurement (mass/ volume)Ordered By: Gage Sharma on 08-11-2024 Potassium (Unsp spec) [Mass/Vol] 4.2 mmol/L 3.3-5.[address] [facility] ,Urineon 08-11-2024 Beta HCG ( test) Ql (U) Negative Normal [facility] Comment on above: Result Comment: Very dilute urine specimens, as indicated by a low specificgravity, may not contain industrial sales representative levels of hCG.If is still suspected, a first morning urinespecimen should be collected 48 hours later and tested. Performed By: #### L 705.4287 ####[facility] [address] [place], [address] Protein Test strip Ql (U)Ord ered By: Gage Sharma on 08-11-2024 Protein Ql (U) 15 mg/dl High Negative [facility] RBC Auto (Bld) [#/Vol]Ordere d By: Gage Sharma on 08-11-2024 RBC (Bld) [#/Vol] 4.26 10*6/uL 4.2-5.4 [facility] Serum creatinine measurement (mass/volume)Ordered By: Gage Sharma on 08-11-2024 Creatinine [Mass/Vol] 0.74 mg/dL 0.70-1.20 [facility] Serum globulin measurementOr dered By: Gage Sharma on 08-11-2024 Globulin (S) [Mass/Vol] 3.1 g/dL 2.2-4.2 [facility] Serum glucose measurement (m ass/volume)Ordered By: Gage Sharma on 08-11-2024 Glucose [Mass/Vol] 90 mg/dL 70-99 [facility] Serum or plasma alanine hair otransferase (ALT) measurementOrdered By: Gage Sharma on 08-11-2024 ALT [Catalytic activity/Vol] 32 U/L <[address] [facility] Serum or plasma albumin leslie urement (mass/volume)Ordered By: Gage Batista on 08-11-2024 Albumin [Mass/Vol] 4.0 g/dL 3.5-5.0 [facility] Serum or plasma alkaline delfin sphatase measurementOrdered By: Gage Sharma on 08-11-2024 ALP [Catalytic activity/Vol] 173 U/L High 35-[address] [facility] Serum or plasma calcium leslie urement (mass/volume)Ordered By: Gage Batista on 08-11-2024 Calcium [Mass/Vol] 9.5 mg/dL 7.6-11.0 [facility] Serum or plasma urea nitroge n measurement (mass/volume)Ordered By: Gage Sharma on 08-11-2024 Urea nitrogen [Mass/Vol] 9 mg/dL 4-[address] [facility] Sodium levelOrdered By: Edd Sharma on 08-11-2024 Sodium [Moles/Vol] 137 mmol/L 133-145 [facility] Squamous epithelial cells de tection in urine sediment by light microscopyOrdered By: Gage Sharma on 08-11-2024 Epithelial cells.squamous LM Ql (Urine sed) 0-5 SEEN /hpf 5-[address] [facility] Total proteinOrdered By: Zev Sharma on 08-11-2024 Protein [Mass/Vol] 7.2 g/dL 5.9-8.4 [facility] Urinalysis, Completeon 08-11 BACTERIA RARE Normal None Seen [facility] Comment on above: Order Comment: CLEAN CATCH Performed By: #### L 400.0001 ####[facility] [address] [place], [address] EPI,SQUAMOUS 0-5 SEEN Normal 5-[address] [facility] Comment on above: Order Comment: CLEAN CATCH Performed By: #### L 400.0001 ####[facility] [address] [place], [address] RBC 0-5 SEEN Normal 0-[address] [facility] Comment on above: Order Comment: CLEAN CATCH Performed By: #### L 400.0001 ####[facility] [address] [place], [address] WBC 0-5 SEEN Normal 0-[address] [facility] Comment on above: Order Comment: CLEAN CATCH Performed By: #### L 400.0001 ####[facility] [address] [place], [address] Mucus Ql (Urine sed) 0 SEEN Normal [facility] Comment on above: Order Comment: CLEAN CATCH Performed By: #### L 400.0001 ####[facility] [address] [place], [address] Urine clarityOrdered By: Zev Sharma on 08-11-2024 Clarity (U) Sl. Cloudy Clear [facility] Urine color determinationOrd ered By: Gage Sharma on 08-11-2024 Color (U) Yellow Yellow [facility] Urine glucose detectionOrder ed By: Gage Sharma on 08-11-2024 Glucose Ql (U) Normal mg/dl Normal [facility] Urine leukocyte esterase det ection by dipstickOrdered By: Gage Sharma on 08-11-2024 Leukocyte esterase Test strip Ql (U) Negative Negative [facility] Urine pHOrdered By: Gage Keller on 08-11-2024 pH (U) 7.0 [pH] 5.0 - 8.[address] [facility] Urine testOrdered By: Gage Edith on 08-11-2024 HCG ( test) Ql (U) Negative [facility] Urine sediment bacteria coun t by microscopy (number/high power field)Ordered By: Gage Sharma on 08-11-2024 Bacteria LM.HPF (Urine sed) [#/Area] RARE /hpf None Seen [facility] Urine specific gravity measu rementOrdered By: [place] JocelyneLynne on 08-11-2024 Specific gravity (U) [Rel density] 1.010 1.002-1.[address] [facility] Urine urobilinogen measureme ntOrdered By: [place] RukhsanaLynne on 08-11-2024 Urobilinogen Ql (U) Normal mg/dl Normal [facility] White blood cell (WBC) count Ordered By: Gage Sharma on 08-11-2024 WBC (Bld) [#/Vol] 10.5 10*3/uL 4.4-11.0 [facility] White blood cell countOrdere d By: Gage Sharma on 08-11-2024 White blood cell count 0-5 SEEN /hpf 0-[address] [facility] 36on 08-10-2024 36 S: Patient called [facility] with complaints of back and abdominal pain. B: Symptoms began 15 minutes prior to call. A: Patient states she had a small bowel movement, and afterwards, begin having severe 8/10 back pain, radiating to abdomen, with severe nausea. Patient states she has been taking Motrin for relief of pain. In audible distress throughout call. 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 Denies recent injury, fever, dysuria, urinary retention, incontinence, weakness, numbness, or hematuria. R: Patient instructed to proceed to evaluation of severe, sudden onset pain. Patient verbalizes understanding, and states she will proceed to [place] [facility], and that her SO will drive her. Reason for Disposition Patient sounds very sick or weak to the triager Protocols used: Back [id number] [facility] ANCAon 08-10-2024 Atypical pANCA <1:20 Normal Neg:<1:[address] [facility] Comment on above: Order Comment: Test( s) [id number], Serum or Plasmawas developed and its performance characteristicsdetermined by [employer]. It has not been cleared or approvedby the Food and Drug Administration. Result Comment: The atypical pANCA pattern has been observed in asignificant percentage of patients with ulcerative colitis,primary sclerosing cholangitis and autoimmune hepatitis. Performed By: #### L 504.2610, L100.9950, L3300.1200, L100.0100, L501.9520, L300.3900, L3410.2400, L3200.1100, L3100.6900, L101.9900, L500.4050, L501.6710, L501.9985, L503.5510, L3200.0500, L3100.5440, L5500.0410, L3100.3425, L503.6150, L3300.0100, L3100.1850, L3400.0700, L503.6550, L3300.1800 ####[facility] [address] [place], [address] Cytoplasmic Ab <1:20 Normal Neg:<1:[address] [facility] Comment on above: Order Comment: Test( s) 366124-Dtuxcp, Serum or Plasmawas developed and its performance characteristicsdetermined by [employer]. It has not been cleared or approvedby the Food and Drug Administration. Performed By: #### L 504.2610, L100.9950, L3300.1200, L100.0100, L501.9520, L300.3900, L3410.2400, L3200.1100, L3100.6900, L101.9900, L500.4050, L501.6710, L501.9985, L503.5510, L3200.0500, L3100.5440, L5500.0410, L3100.3425, L503.6150, L3300.0100, L3100.1850, L3400.0700, L503.6550, L3300.1800 ####[facility] [address] [place], [place], [id number] Perinuclear Ab. <1:20 Normal Neg:<1:[address] [facility] Comment on above: Order Comment: Test( s) 895524-Svwdkc, Serum or Plasmawas developed and its performance characteristicsdetermined by [employer]. It has not been cleared or approvedby the Food and Drug Administration. Result Comment: The presence of positive fluorescence exhibiting P-ANCA orC-ANCA patterns alone is not specific for the diagnosis ofWegener's Granulomatosis (WG) or microscopic polyangiitis.Decisions about treatment should not be based solely onANCA IFA results. The International ANCA Group Consensusrecommends follow up testing of positive sera with both NJ-3 and MPO-ANCA enzyme immunoassays. As many as 5% serumsamples are positive only by EIA. Ref. AM J Clin Bnohwy2053;111:507-513. Performed By: #### L 504.2610, L100.9950, L3300.1200, L100.0100, L501.9520, L300.3900, L3410.2400, L3200.1100, L3100.6900, L101.9900, L500.4050, L501.6710, L501.9985, L503.5510, L3200.0500, L3100.5440, L5500.0410, L3100.3425, L503.6150, L3300.0100, L3100.1850, L3400.0700, L503.6550, L3300.1800 ####[facility] [address] [place], [place], [address] Angiotensin Convert Enzymeon 08-10-2024 ANGIOT-CONV.ENZ 62 U/L Normal 14-[address] [facility] Comment on above: Order Comment: Test( s) 670422-Bgydox, Serum or Plasmawas developed and its performance characteristicsdetermined by [employer]. It has not been cleared or approvedby the Food and Drug Administration. Performed By: #### L 504.2610, L100.9950, L3300.1200, L100.0100, L501.9520, L300.3900, L3410.2400, L3200.1100, L3100.6900, L101.9900, L500.4050, L501.6710, L501.9985, L503.5510, L3200.0500, L3100.5440, L5500.0410, L3100.3425, L503.6150, L3300.0100, L3100.1850, L3400.0700, L503.6550, L3300.1800 ####[facility] [address] [place], [address] Celiac Disease Profileon ENDOMYSIAL IGA Negative Normal Negative [facility] Comment on above: Order Comment: Test( s) 703351-Vfwwog, Serum or Plasmawas developed and its performance characteristicsdetermined by [employer]. It has not been cleared or approvedby the Food and Drug Administration. Performed By: #### L 504.2610, L100.9950, L3300.1200, L100.0100, L501.9520, L300.3900, L3410.2400, L3200.1100, L3100.6900, L101.9900, L500.4050, L501.6710, L501.9985, L503.5510, L3200.0500, L3100.5440, L5500.0410, L3100.3425, L503.6150, L3300.0100, L3100.1850, L3400.0700, L503.6550, L3300.1800 ####[facility] [address] [place], [address] tTG IGA <2 Normal 0-[address] [facility] Comment on above: Order Comment: Test( s) 936629-Aqsvvg, Serum or Plasmawas developed and its performance characteristicsdetermined by [employer]. It has not been cleared or approvedby the Food and Drug Administration. Result Comment: Nega tive 0 - 3 Weak Positive 4 - 10 Positive >10 Tissue Transglutaminase (tTG) has been identified as the endomysial antigen. Studies have demonstr- ated that endomysial IgA antibodies have over 99% specificity for gluten sensitive enteropathy. Performed By: #### L 504.2610, L100.9950, L3300.1200, L100.0100, L501.9520, L300.3900, L3410.2400, L3200.1100, L3100.6900, L101.9900, L500.4050, L501.6710, L501.9985, L503.5510, L3200.0500, L3100.5440, L5500.0410, L3100.3425, L503.6150, L3300.0100, L3100.1850, L3400.0700, L503.6550, L3300.1800 ####[facility] [address] [place], [address] Ceruloplasminon 08-10-2024 CERULOPLASMIN 42.4 mg/dL High 19.0-39.[address] [facility] Comment on above: Order Comment: Test( s) 958848-Rolgqf, Serum or Plasmawas developed and its performance characteristicsdetermined by [employer]. It has not been cleared or approvedby the Food and Drug Administration. Performed By: #### L 504.2610, L100.9950, L3300.1200, L100.0100, L501.9520, L300.3900, L3410.2400, L3200.1100, L3100.6900, L101.9900, L500.4050, L501.6710, L501.9985, L503.5510, L3200.0500, L3100.5440, L5500.0410, L3100.3425, L503.6150, L3300.0100, L3100.1850, L3400.0700, L503.6550, L3300.1800 ####[facility] [address] [place], [place], [address] Copper, Serum or Plasmaon COPPER, SERUM 159 ug/dL High 80-[address] [facility] Comment on above: Order Comment: Test( s) 942051-Rmdhrg, Serum or Plasmawas developed and its performance characteristicsdetermined by [employer]. It has not been cleared or approvedby the Food and Drug Administration. Result Comment: Dete ction Limit = 5 Performed By: #### L 504.2610, L100.9950, L3300.1200, L100.0100, L501.9520, L300.3900, L3410.2400, L3200.1100, L3100.6900, L101.9900, L500.4050, L501.6710, L501.9985, L503.5510, L3200.0500, L3100.5440, L5500.0410, L3100.3425, L503.6150, L3300.0100, L3100.1850, L3400.0700, L503.6550, L3300.1800 ####[facility] [address] [place], [place], [address] Gastrin, Serumon 08-10-2024 GASTRIN 17 pg/mL Normal 0-[address] [facility] Comment on above: Order Comment: Test( s) 849958-Fiipgn, Serum or Plasmawas developed and its performance characteristicsdetermined by [employer]. It has not been cleared or approvedby the Food and Drug Administration. Result Comment: Siem [facility] Immulite 2000 Immunochemiluminometric assay (ICMA)Values obtained with different assay methods or kits cannotbe used interchangeably. Results cannot be interpreted asabsolute evidence of the presence or absence of malignantdisease. Performed By: #### L 504.2610, L100.9950, L3300.1200, L100.0100, L501.9520, L300.3900, L3410.2400, L3200.1100, L3100.6900, L101.9900, L500.4050, L501.6710, L501.9985, L503.5510, L3200.0500, L3100.5440, L5500.0410, L3100.3425, L503.6150, L3300.0100, L3100.1850, L3400.0700, L503.6550, L3300.1800 ####[facility] [address] [place], [place], [address] Giardia Lamblia, Stool EIAon 08-10-2024 Giardia Stool Negative Normal Negative [facility] Comment on above: Result Comment: Perf ormed at: [facility] Interview [address] [id number] Director: Victor M Hargrove PhD, Phone: [phone] Performed By: #### L 7000.0700, M100.6796, M100.637, L7400.3300, M100.0605, M600.5000 ####[facility] [address] [place], [place], [address] Haptoglobinon 08-10-2024 HAPTOGLOBIN 373 mg/dL High 42-[address] [facility] Comment on above: Order Comment: Test( s) 748538-Orftuk, Serum or Plasmawas developed and its performance characteristicsdetermined by [employer]. It has not been cleared or approvedby the Food and Drug Administration. Result Comment: Perf ormed at: [facility] [employer] [id number] Director: Victor M Hargrove PhD, Phone: [phone] at: [facility] [employer] [id number] Director: Isac Kemp MD, Phone: [phone] Performed By: #### L 504.2610, L100.9950, L3300.1200, L100.0100, L501.9520, L300.3900, L3410.2400, L3200.1100, L3100.6900, L101.9900, L500.4050, L501.6710, L501.9985, L503.5510, L3200.0500, L3100.5440, L5500.0410, L3100.3425, L503.6150, L3300.0100, L3100.1850, L3400.0700, L503.6550, L3300.1800 ####[facility] [address] [facility] [place], [place], [phone] DAVID + Protein Elect, Serumon 08-10-2024 Albumin [Mass/Vol] 3.4 g/dL Normal 2.9-4.4 [facility] Comment on above: Order Comment: Test( s) 225947-Ognckt, Serum or Plasmawas developed and its performance characteristicsdetermined by [employer]. It has not been cleared or approvedby the Food and Drug Administration.N Performed By: #### L 504.2610, L100.9950, L3300.1200, L100.0100, L501.9520, L300.3900, L3410.2400, L3200.1100, L3100.6900, L101.9900, L500.4050, L501.6710, L501.9985, L503.5510, L3200.0500, L3100.5440, L5500.0410, L3100.3425, L503.6150, L3300.0100, L3100.1850, L3400.0700, L503.6550, L3300.1800 ####[facility] [address] [place], [address] Albumin/Globulin [Mass ratio] 1.0 {ratio} Normal 0.7-1.[address] [facility] Comment on above: Order Comment: Test( s) 741788-Hmbwls, Serum or Plasmawas developed and its performance characteristicsdetermined by [employer]. It has not been cleared or approvedby the Food and Drug Administration.N Performed By: #### L 504.2610, L100.9950, L3300.1200, L100.0100, L501.9520, L300.3900, L3410.2400, L3200.1100, L3100.6900, L101.9900, L500.4050, L501.6710, L501.9985, L503.5510, L3200.0500, L3100.5440, L5500.0410, L3100.3425, L503.6150, L3300.0100, L3100.1850, L3400.0700, L503.6550, L3300.1800 ####[facility] [address] [place], [address] GWZTT-2-RUCD 0.2 g/dL Normal 0.0-0.[address] [facility] Comment on above: Order Comment: Test( s) 433657-Imzdbs, Serum or Plasmawas developed and its performance characteristicsdetermined by [employer]. It has not been cleared or approvedby the Food and Drug Administration.N Performed By: #### L 504.2610, L100.9950, L3300.1200, L100.0100, L501.9520, L300.3900, L3410.2400, L3200.1100, L3100.6900, L101.9900, L500.4050, L501.6710, L501.9985, L503.5510, L3200.0500, L3100.5440, L5500.0410, L3100.3425, L503.6150, L3300.0100, L3100.1850, L3400.0700, L503.6550, L3300.1800 ####[facility] [address] [place], [address] MGNQP-8-YYWR 1.1 g/dL High 0.4-1.[address] [facility] Comment on above: Order Comment: Test( s) 961158-Plaqht, Serum or Plasmawas developed and its performance characteristicsdetermined by [employer]. It has not been cleared or approvedby the Food and Drug Administration.N Performed By: #### L 504.2610, L100.9950, L3300.1200, L100.0100, L501.9520, L300.3900, L3410.2400, L3200.1100, L3100.6900, L101.9900, L500.4050, L501.6710, L501.9985, L503.5510, L3200.0500, L3100.5440, L5500.0410, L3100.3425, L503.6150, L3300.0100, L3100.1850, L3400.0700, L503.6550, L3300.1800 ####[facility] [address] [facility] [place], [place], [phone] BETA GLOBULIN 1.2 g/dL Normal 0.7-1.[address] [facility] Comment on above: Order Comment: Test( s) 628609-Qxjwsm, Serum or Plasmawas developed and its performance characteristicsdetermined by [employer]. It has not been cleared or approvedby the Food and Drug Administration.N Performed By: #### L 504.2610, L100.9950, L3300.1200, L100.0100, L501.9520, L300.3900, L3410.2400, L3200.1100, L3100.6900, L101.9900, L500.4050, L501.6710, L501.9985, L503.5510, L3200.0500, L3100.5440, L5500.0410, L3100.3425, L503.6150, L3300.0100, L3100.1850, L3400.0700, L503.6550, L3300.1800 ####[facility] [address] [place], [address] GAMMA GLOBULIN 1.0 g/dL Normal 0.4-1.[address] [facility] Comment on above: Order Comment: Test( s) 213898-Twgxhu, Serum or Plasmawas developed and its performance characteristicsdetermined by [employer]. It has not been cleared or approvedby the Food and Drug Administration.N Performed By: #### L 504.2610, L100.9950, L3300.1200, L100.0100, L501.9520, L300.3900, L3410.2400, L3200.1100, L3100.6900, L101.9900, L500.4050, L501.6710, L501.9985, L503.5510, L3200.0500, L3100.5440, L5500.0410, L3100.3425, L503.6150, L3300.0100, L3100.1850, L3400.0700, L503.6550, L3300.1800 ####[facility] [address] [place], [place], [phone] Globulin (S) [Mass/Vol] 3.5 g/dL Normal 2.2-3.9 [facility] Comment on above: Order Comment: Test( s) 805114-Jrqywe, Serum or Plasmawas developed and its performance characteristicsdetermined by [employer]. It has not been cleared or approvedby the Food and Drug Administration.N Performed By: #### L 504.2610, L100.9950, L3300.1200, L100.0100, L501.9520, L300.3900, L3410.2400, L3200.1100, L3100.6900, L101.9900, L500.4050, L501.6710, L501.9985, L503.5510, L3200.0500, L3100.5440, L5500.0410, L3100.3425, L503.6150, L3300.0100, L3100.1850, L3400.0700, L503.6550, L3300.1800 ####[facility] [address] [place], [place], [phone] DAVID RESULT,S Comment Normal . [facility] Comment on above: Order Comment: Test( s) 514018-Xlcbhr, Serum or Plasmawas developed and its performance characteristicsdetermined by [employer]. It has not been cleared or approvedby the Food and Drug Administration.N Result Comment: No m onoclonality detected. Performed By: #### L 504.2610, L100.9950, L3300.1200, L100.0100, L501.9520, L300.3900, L3410.2400, L3200.1100, L3100.6900, L101.9900, L500.4050, L501.6710, L501.9985, L503.5510, L3200.0500, L3100.5440, L5500.0410, L3100.3425, L503.6150, L3300.0100, L3100.1850, L3400.0700, L503.6550, L3300.1800 ####[facility] [address] [facility] [place], [place], [id number] IMMUNOGLOB A QN 134 mg/dL Normal 87-[address] [facility] Comment on above: Order Comment: Test( s) 520031-Dqiipp, Serum or Plasmawas developed and its performance characteristicsdetermined by [employer]. It has not been cleared or approvedby the Food and Drug Administration.N Performed By: #### L 504.2610, L100.9950, L3300.1200, L100.0100, L501.9520, L300.3900, L3410.2400, L3200.1100, L3100.6900, L101.9900, L500.4050, L501.6710, L501.9985, L503.5510, L3200.0500, L3100.5440, L5500.0410, L3100.3425, L503.6150, L3300.0100, L3100.1850, L3400.0700, L503.6550, L3300.1800 ####[facility] [address] [facility] [place], [place], [phone] IMMUNOGLOB M QN 217 mg/dL Normal 26-[address] [facility] Comment on above: Order Comment: Test( s) 462193-Jgycvv, Serum or Plasmawas developed and its performance characteristicsdetermined by [employer]. It has not been cleared or approvedby the Food and Drug Administration.N Performed By: #### L 504.2610, L100.9950, L3300.1200, L100.0100, L501.9520, L300.3900, L3410.2400, L3200.1100, L3100.6900, L101.9900, L500.4050, L501.6710, L501.9985, L503.5510, L3200.0500, L3100.5440, L5500.0410, L3100.3425, L503.6150, L3300.0100, L3100.1850, L3400.0700, L503.6550, L3300.1800 ####[facility] [address] [facility] [place], [place], [phone] M-Jayme Not Observed Normal Not Observed [facility] Comment on above: Order Comment: Test( s) 657431-Zdsevk, Serum or Plasmawas developed and its performance characteristicsdetermined by [employer]. It has not been cleared or approvedby the Food and Drug Administration.N Performed By: #### L 504.2610, L100.9950, L3300.1200, L100.0100, L501.9520, L300.3900, L3410.2400, L3200.1100, L3100.6900, L101.9900, L500.4050, L501.6710, L501.9985, L503.5510, L3200.0500, L3100.5440, L5500.0410, L3100.3425, L503.6150, L3300.0100, L3100.1850, L3400.0700, L503.6550, L3300.1800 ####[facility] [address] [facility] [place], [place], [phone] NOTE: Comment Normal . [facility] Comment on above: Order Comment: Test( s) 824636-Sizfbk, Serum or Plasmawas developed and its performance characteristicsdetermined by [employer]. It has not been cleared or approvedby the Food and Drug Administration.N Result Comment: Prot ein electrophoresis scan will follow via computer,mail, or musical instrument mechanic delivery. Performed By: #### L 504.2610, L100.9950, L3300.1200, L100.0100, L501.9520, L300.3900, L3410.2400, L3200.1100, L3100.6900, L101.9900, L500.4050, L501.6710, L501.9985, L503.5510, L3200.0500, L3100.5440, L5500.0410, L3100.3425, L503.6150, L3300.0100, L3100.1850, L3400.0700, L503.6550, L3300.1800 ####[facility] [address] [place], [place], [phone] Protein [Mass/Vol] 6.9 g/dL Normal 6.0-8.5 [facility] Comment on above: Order Comment: Test( s) 661234-Jqdyhr, Serum or Plasmawas developed and its performance characteristicsdetermined by [employer]. It has not been cleared or approvedby the Food and Drug Administration.N Performed By: #### L 504.2610, L100.9950, L3300.1200, L100.0100, L501.9520, L300.3900, L3410.2400, L3200.1100, L3100.6900, L101.9900, L500.4050, L501.6710, L501.9985, L503.5510, L3200.0500, L3100.5440, L5500.0410, L3100.3425, L503.6150, L3300.0100, L3100.1850, L3400.0700, L503.6550, L3300.1800 ####[facility] [address] [facility] [place], [place], [phone] IgG Subclasseson 08-10-2024 IgG, SUBCLASS 1 509 mg/dL Normal 248-[address] [facility] Comment on above: Order Comment: Test( s) 001265-Igzkei, Serum or Plasmawas developed and its performance characteristicsdetermined by [employer]. It has not been cleared or approvedby the Food and Drug Administration. Performed By: #### L 504.2610, L100.9950, L3300.1200, L100.0100, L501.9520, L300.3900, L3410.2400, L3200.1100, L3100.6900, L101.9900, L500.4050, L501.6710, L501.9985, L503.5510, L3200.0500, L3100.5440, L5500.0410, L3100.3425, L503.6150, L3300.0100, L3100.1850, L3400.0700, L503.6550, L3300.1800 ####[facility] [address] [facility] [place], [place], [phone] IgG, SUBCLASS 2 168 mg/dL Normal 130-[address] [facility] Comment on above: Order Comment: Test( s) 696710-Dnixvr, Serum or Plasmawas developed and its performance characteristicsdetermined by [employer]. It has not been cleared or approvedby the Food and Drug Administration. Performed By: #### L 504.2610, L100.9950, L3300.1200, L100.0100, L501.9520, L300.3900, L3410.2400, L3200.1100, L3100.6900, L101.9900, L500.4050, L501.6710, L501.9985, L503.5510, L3200.0500, L3100.5440, L5500.0410, L3100.3425, L503.6150, L3300.0100, L3100.1850, L3400.0700, L503.6550, L3300.1800 ####[facility] [address] [facility] [place], [place], [phone] IgG, SUBCLASS 3 73 mg/dL Normal 15-[address] [facility] Comment on above: Order Comment: Test( s) 065957-Wzkfuf, Serum or Plasmawas developed and its performance characteristicsdetermined by [employer]. It has not been cleared or approvedby the Food and Drug Administration. Performed By: #### L 504.2610, L100.9950, L3300.1200, L100.0100, L501.9520, L300.3900, L3410.2400, L3200.1100, L3100.6900, L101.9900, L500.4050, L501.6710, L501.9985, L503.5510, L3200.0500, L3100.5440, L5500.0410, L3100.3425, L503.6150, L3300.0100, L3100.1850, L3400.0700, L503.6550, L3300.1800 ####[facility] [address] [facility] [place], [place], [phone]05) IgG, SUBCLASS 4 17 mg/dL Normal 2-[address] [facility] Comment on above: Order Comment: Test( s) 606510-Opqgsg, Serum or Plasmawas developed and its performance characteristicsdetermined by [employer]. It has not been cleared or approvedby the Food and Drug Administration. Performed By: #### L 504.2610, L100.9950, L3300.1200, L100.0100, L501.9520, L300.3900, L3410.2400, L3200.1100, L3100.6900, L101.9900, L500.4050, L501.6710, L501.9985, L503.5510, L3200.0500, L3100.5440, L5500.0410, L3100.3425, L503.6150, L3300.0100, L3100.1850, L3400.0700, L503.6550, L3300.1800 ####[facility] [address] [facility] [place], [place], [phone] IGG,QUANT 945 mg/dL Normal 586-[address] [facility] Comment on above: Order Comment: Test( s) 810748-Dcooiv, Serum or Plasmawas developed and its performance characteristicsdetermined by [employer]. It has not been cleared or approvedby the Food and Drug Administration. Performed By: #### L 504.2610, L100.9950, L3300.1200, L100.0100, L501.9520, L300.3900, L3410.2400, L3200.1100, L3100.6900, L101.9900, L500.4050, L501.6710, L501.9985, L503.5510, L3200.0500, L3100.5440, L5500.0410, L3100.3425, L503.6150, L3300.0100, L3100.1850, L3400.0700, L503.6550, L3300.1800 ####[facility] [address] [place], [place], [id number] Immunoglobulins G/A/M/Librado IMMUNOGLOB E QN 122 IU/mL Normal 6-[address] [facility] Comment on above: Order Comment: Test( s) 049328-Ezgxbc, Serum or Plasmawas developed and its performance characteristicsdetermined by [employer]. It has not been cleared or approvedby the Food and Drug Administration.N Performed By: #### L 504.2610, L100.9950, L3300.1200, L100.0100, L501.9520, L300.3900, L3410.2400, L3200.1100, L3100.6900, L101.9900, L500.4050, L501.6710, L501.9985, L503.5510, L3200.0500, L3100.5440, L5500.0410, L3100.3425, L503.6150, L3300.0100, L3100.1850, L3400.0700, L503.6550, L3300.1800 ####[facility] [id number] [place], [address] Amylaseon 08-09-2024 TAWANNA 19 U/L Low 28-[address] [facility] Comment on above: Order Comment: ADD O NTO YESTERDAYS BLOOD Performed By: #### L 501.2400, L501.2450 ####[facility] [id number] [place], [address] CDIFF (PCR)on 08-09-2024 CDIFF Pending 027 027 NAP1-B1 Presumptive Negative *for epidemiolologic???use C. Diff PCR Negative- No toxigenic C. Diff Detected Normal [facility] Comment on above: Performed By: #### L 7000.0700, M100.6796, M100.637, L7400.3300, M100.0605, M600.5000 ####[facility] [id number] [place], [place], [id number] Calprotectin stoolOrdered By : Bárbara Ureña on 08-09-2024 Calprotectin stool 13 ug/g 0-120 [facility] Clostridium difficile detect ion by polymerase chain reactionOrdered By: Bárbara Ureña on 08-09-2024 C. difficile DNA BIMAL+probe Ql (Unsp spec) [facility] ENTERIC PATHOGEN PANEL STOOL on 08-09-2024 EP PANEL Normal [facility] Comment on above: Performed By: #### L 7000.0700, M100.6796, M100.637, L7400.3300, M100.0605, M600.5000 ####[facility] [id number] [place], [place], [id number] Giardia lamblia ag stool EIA Ordered By: Bárbara Ureña on 08-09-2024 G. lamblia Ag IA Ql (Stl) Negative Negative [facility] [facility] Lipaseon 08-09-2024 Lipase [Catalytic activity/Vol] 24 U/L Normal 13-[address] [facility] Comment on above: Order Comment: ADD O NTO YESTERDAYS BLOOD Result Comment: Plea se note:LIPASE revised reference range effective 22.New Lipase methodology. Expected to produce lower valuesthan the previous assay method.NEW Reference Range: 13 - 75 U/L Performed By: #### L 501.2400, L501.2450 ####[facility] [address] [place], [place], [phone] Serum or plasma amylase leslie urement (enzymatic activity/volume)Ordered By: Quang Myles on 08-09-2024 Amylase [Catalytic activity/Vol] 19 U/L Low 28-[address] [facility] Stool Lactoferrin/WBCon - WBCST Normal Reference Ran ge = Negative Fecal WBC Lactoferrin Negative: No Fecal WBC Lactoferrin present Normal [facility] Comment on above: Performed By: #### L 7000.0700, M100.6796, M100.637, L7400.3300, M100.0605, M600.5000 ####[facility] [address] [place], [address] Stool lactoferrin detection by immunoassayOrdered By: Bárbara Ureña on 08-09-2024 Lactoferrin IA Ql (Stl) [facility] Absolute lymphocyte countOrd ered By: Quang Myles on 08-08-2024 Lymphocytes Auto (Unsp spec) [#/Vol] 1.28 10*3/uL 0.83-4.[address] [facility] Albumin Elph [Mass/Vol]Order ed By: Quang Myles on 08-08-2024 Albumin [Mass/Vol] 3.4 g/dL 2.9-4.4 [facility] Ammoniaon 08-08-2024 Ammonia (P) [Moles/Vol] 36.2 umol/L Normal 11-[address] [facility] Comment on above: Performed By: #### L 504.2610, L100.9950, L3300.1200, L100.0100, L501.9520, L300.3900, L3410.2400, L3200.1100, L3100.6900, L101.9900, L500.4050, L501.6710, L501.9985, L503.5510, L3200.0500, L3100.5440, L5500.0410, L3100.3425, L503.6150, L3300.0100, L3100.1850, L3400.0700, L503.6550, L3300.1800 ####[facility] [address] [place], [address] Anion gap in Serum or Plasma Ordered By: Quang Myles on 08-08-2024 Anion gap [Moles/Vol] 11 mmol/L 5-15 [facility] Automated lymphocyte count a s percentage of total leukocytesOrdered By: Quang Myles on 08-08-2024 Lymphocytes/100 WBC Auto (Unsp spec) 13.9 % Low 19-[address] [facility] BUN/creatinine ratioOrdered By: Quang Myles on 08-08-2024 Urea nitrogen/Creatinine [Mass ratio] 12.1 mg/mg 10-[address] [facility] Basophil percentageOrdered B y: Quang Myles on 08-08-2024 Basophils/100 WBC (Bld) 0.9 % 0-1 [facility] Bilirubin, totalOrdered By: Quang Myles on 08-08-2024 Bilirubin [Mass/Vol] 0.23 mg/dL 0.00-1.30 [facility] CBC W/Diff, Automatedon 07-13 Absolute Lymph 1.28 X10 3/uL Normal 0.83-4.[address] [facility] Comment on above: Performed By: #### L 504.2610, L100.9950, L3300.1200, L100.0100, L501.9520, L300.3900, L3410.2400, L3200.1100, L3100.6900, L101.9900, L500.4050, L501.6710, L501.9985, L503.5510, L3200.0500, L3100.5440, L5500.0410, L3100.3425, L503.6150, L3300.0100, L3100.1850, L3400.0700, L503.6550, L3300.1800 ####[facility] [address] [place], [place], [phone] Absolute Neut 7.0 X10 3/uL Normal 2.0-7.[address] [facility] Comment on above: Performed By: #### L 504.2610, L100.9950, L3300.1200, L100.0100, L501.9520, L300.3900, L3410.2400, L3200.1100, L3100.6900, L101.9900, L500.4050, L501.6710, L501.9985, L503.5510, L3200.0500, L3100.5440, L5500.0410, L3100.3425, L503.6150, L3300.0100, L3100.1850, L3400.0700, L503.6550, L3300.1800 ####[facility] [address] [place], [place], [phone](761) Basophils/100 WBC (Bld) 0.9 % Normal 0-1 [facility] Comment on above: Performed By: #### L 504.2610, L100.9950, L3300.1200, L100.0100, L501.9520, L300.3900, L3410.2400, L3200.1100, L3100.6900, L101.9900, L500.4050, L501.6710, L501.9985, L503.5510, L3200.0500, L3100.5440, L5500.0410, L3100.3425, L503.6150, L3300.0100, L3100.1850, L3400.0700, L503.6550, L3300.1800 ####[facility] [address] [place], [place], [phone](138) Eosinophils/100 WBC (Bld) 3.8 % Normal 0-[address] [facility] Comment on above: Performed By: #### L 504.2610, L100.9950, L3300.1200, L100.0100, L501.9520, L300.3900, L3410.2400, L3200.1100, L3100.6900, L101.9900, L500.4050, L501.6710, L501.9985, L503.5510, L3200.0500, L3100.5440, L5500.0410, L3100.3425, L503.6150, L3300.0100, L3100.1850, L3400.0700, L503.6550, L3300.1800 ####[facility] [address] [facility] [place], [place], [phone] Erythrocyte distribution width (RBC) [Ratio] 13.1 % Normal 11.6-14.[address] [facility] Comment on above: Performed By: #### L 504.2610, L100.9950, L3300.1200, L100.0100, L501.9520, L300.3900, L3410.2400, L3200.1100, L3100.6900, L101.9900, L500.4050, L501.6710, L501.9985, L503.5510, L3200.0500, L3100.5440, L5500.0410, L3100.3425, L503.6150, L3300.0100, L3100.1850, L3400.0700, L503.6550, L3300.1800 ####[facility] [address] [facility] [place], [place], [phone] Hematocrit (Bld) [Volume fraction] 44.1 % Normal 37-[address] [facility] Comment on above: Performed By: #### L 504.2610, L100.9950, L3300.1200, L100.0100, L501.9520, L300.3900, L3410.2400, L3200.1100, L3100.6900, L101.9900, L500.4050, L501.6710, L501.9985, L503.5510, L3200.0500, L3100.5440, L5500.0410, L3100.3425, L503.6150, L3300.0100, L3100.1850, L3400.0700, L503.6550, L3300.1800 ####[facility] [address] [facility] [place], [place], [phone] Hemoglobin (Bld) [Mass/Vol] 14.7 g/dL Normal 12.0-15.[address] [facility] Comment on above: Performed By: #### L 504.2610, L100.9950, L3300.1200, L100.0100, L501.9520, L300.3900, L3410.2400, L3200.1100, L3100.6900, L101.9900, L500.4050, L501.6710, L501.9985, L503.5510, L3200.0500, L3100.5440, L5500.0410, L3100.3425, L503.6150, L3300.0100, L3100.1850, L3400.0700, L503.6550, L3300.1800 ####[facility] [address] [facility] [place], [place], [phone] IG% 0.500 Normal 0.0-0.[address] [facility] Comment on above: Result Comment: IG% - Immature Granulocytes (promyelocytes, myelocytes andmetamyelocytes) > 1% indicates that a LEFT SHIFT is Present. Performed By: #### L 504.2610, L100.9950, L3300.1200, L100.0100, L501.9520, L300.3900, L3410.2400, L3200.1100, L3100.6900, L101.9900, L500.4050, L501.6710, L501.9985, L503.5510, L3200.0500, L3100.5440, L5500.0410, L3100.3425, L503.6150, L3300.0100, L3100.1850, L3400.0700, L503.6550, L3300.1800 ####[facility] [address] [facility] [place], [place], [phone] Lymphocytes/100 WBC (Bld) 13.9 % Low 19-[address] [facility] Comment on above: Performed By: #### L 504.2610, L100.9950, L3300.1200, L100.0100, L501.9520, L300.3900, L3410.2400, L3200.1100, L3100.6900, L101.9900, L500.4050, L501.6710, L501.9985, L503.5510, L3200.0500, L3100.5440, L5500.0410, L3100.3425, L503.6150, L3300.0100, L3100.1850, L3400.0700, L503.6550, L3300.1800 ####[facility] [address] [place], [address] MCH (RBC) [Entitic mass] 32.0 pg Normal 27.0-32.[address] [facility] Comment on above: Performed By: #### L 504.2610, L100.9950, L3300.1200, L100.0100, L501.9520, L300.3900, L3410.2400, L3200.1100, L3100.6900, L101.9900, L500.4050, L501.6710, L501.9985, L503.5510, L3200.0500, L3100.5440, L5500.0410, L3100.3425, L503.6150, L3300.0100, L3100.1850, L3400.0700, L503.6550, L3300.1800 ####[facility] [address] [place], [address] MCHC (RBC) [Mass/Vol] 33.3 g/dL Normal 32-36 [facility] Comment on above: Performed By: #### L 504.2610, L100.9950, L3300.1200, L100.0100, L501.9520, L300.3900, L3410.2400, L3200.1100, L3100.6900, L101.9900, L500.4050, L501.6710, L501.9985, L503.5510, L3200.0500, L3100.5440, L5500.0410, L3100.3425, L503.6150, L3300.0100, L3100.1850, L3400.0700, L503.6550, L3300.1800 ####[facility] [address] [place], [address] MCV (RBC) [Entitic vol] 95.9 fL Normal 81-99 [facility] Comment on above: Performed By: #### L 504.2610, L100.9950, L3300.1200, L100.0100, L501.9520, L300.3900, L3410.2400, L3200.1100, L3100.6900, L101.9900, L500.4050, L501.6710, L501.9985, L503.5510, L3200.0500, L3100.5440, L5500.0410, L3100.3425, L503.6150, L3300.0100, L3100.1850, L3400.0700, L503.6550, L3300.1800 ####[facility] [address] [place], [address] Monocytes/100 WBC (Bld) 5.4 % Normal 0-10 [facility] Comment on above: Performed By: #### L 504.2610, L100.9950, L3300.1200, L100.0100, L501.9520, L300.3900, L3410.2400, L3200.1100, L3100.6900, L101.9900, L500.4050, L501.6710, L501.9985, L503.5510, L3200.0500, L3100.5440, L5500.0410, L3100.3425, L503.6150, L3300.0100, L3100.1850, L3400.0700, L503.6550, L3300.1800 ####[facility] [address] [place], [place], [phone](306) Neutrophils/100 WBC (Bld) 75.5 % High 47-[address] [facility] Comment on above: Performed By: #### L 504.2610, L100.9950, L3300.1200, L100.0100, L501.9520, L300.3900, L3410.2400, L3200.1100, L3100.6900, L101.9900, L500.4050, L501.6710, L501.9985, L503.5510, L3200.0500, L3100.5440, L5500.0410, L3100.3425, L503.6150, L3300.0100, L3100.1850, L3400.0700, L503.6550, L3300.1800 ####[facility] [address] [facility] [place], [address] Nucleated RBC (Bld) [#/Vol] 0 10*3/uL Normal 0-[address] [facility] Comment on above: Performed By: #### L 504.2610, L100.9950, L3300.1200, L100.0100, L501.9520, L300.3900, L3410.2400, L3200.1100, L3100.6900, L101.9900, L500.4050, L501.6710, L501.9985, L503.5510, L3200.0500, L3100.5440, L5500.0410, L3100.3425, L503.6150, L3300.0100, L3100.1850, L3400.0700, L503.6550, L3300.1800 ####[facility] [address] [facility] [place], [place], [phone](332) Platelet mean volume (Bld) [Entitic vol] 9.9 fL Normal 6.2-12.[address] [facility] Comment on above: Performed By: #### L 504.2610, L100.9950, L3300.1200, L100.0100, L501.9520, L300.3900, L3410.2400, L3200.1100, L3100.6900, L101.9900, L500.4050, L501.6710, L501.9985, L503.5510, L3200.0500, L3100.5440, L5500.0410, L3100.3425, L503.6150, L3300.0100, L3100.1850, L3400.0700, L503.6550, L3300.1800 ####[facility] [address] [place], [address] Platelets (Bld) [#/Vol] 375 10*3/uL Normal 150-[address] [facility] Comment on above: Performed By: #### L 504.2610, L100.9950, L3300.1200, L100.0100, L501.9520, L300.3900, L3410.2400, L3200.1100, L3100.6900, L101.9900, L500.4050, L501.6710, L501.9985, L503.5510, L3200.0500, L3100.5440, L5500.0410, L3100.3425, L503.6150, L3300.0100, L3100.1850, L3400.0700, L503.6550, L3300.1800 ####[facility] [address] [facility] [place], [place], [address] RBC (Bld) [#/Vol] 4.60 10*6/uL Normal 4.2-5.4 [facility] Comment on above: Performed By: #### L 504.2610, L100.9950, L3300.1200, L100.0100, L501.9520, L300.3900, L3410.2400, L3200.1100, L3100.6900, L101.9900, L500.4050, L501.6710, L501.9985, L503.5510, L3200.0500, L3100.5440, L5500.0410, L3100.3425, L503.6150, L3300.0100, L3100.1850, L3400.0700, L503.6550, L3300.1800 ####[facility] [address] [place], [place], [phone] RDW SD 46.1 fl High 35.1-43.[address] [facility] Comment on above: Performed By: #### L 504.2610, L100.9950, L3300.1200, L100.0100, L501.9520, L300.3900, L3410.2400, L3200.1100, L3100.6900, L101.9900, L500.4050, L501.6710, L501.9985, L503.5510, L3200.0500, L3100.5440, L5500.0410, L3100.3425, L503.6150, L3300.0100, L3100.1850, L3400.0700, L503.6550, L3300.1800 ####[facility] [address] [place], [place], [phone] WBC (Bld) [#/Vol] 9.2 10*3/uL Normal 4.4-11.0 [facility] Comment on above: Performed By: #### L 504.2610, L100.9950, L3300.1200, L100.0100, L501.9520, L300.3900, L3410.2400, L3200.1100, L3100.6900, L101.9900, L500.4050, L501.6710, L501.9985, L503.5510, L3200.0500, L3100.5440, L5500.0410, L3100.3425, L503.6150, L3300.0100, L3100.1850, L3400.0700, L503.6550, L3300.1800 ####[facility] [address] [facility] [place], [place], [phone] CRPon 08-08-2024 C-REACTIVE PROT 16.80 mg/L High 0.0-3.[address] [facility] Comment on above: Performed By: #### L 504.2610, L100.9950, L3300.1200, L100.0100, L501.9520, L300.3900, L3410.2400, L3200.1100, L3100.6900, L101.9900, L500.4050, L501.6710, L501.9985, L503.5510, L3200.0500, L3100.5440, L5500.0410, L3100.3425, L503.6150, L3300.0100, L3100.1850, L3400.0700, L503.6550, L3300.1800 ####[facility] [address] [place], [place], [phone] Carbon dioxide, total [Moles /volume] in Central venous bloodOrdered By: Quang Myles on 08-08-2024 CO2 [Moles/Vol] 21.1 mmol/L 21.0-32.[address] [facility] Chloride assayOrdered By: Ra treva Myles on 08-08-2024 Chloride [Moles/Vol] 106 mmol/L 98-108 [facility] Comprehensive Metabolic Prof ilon 08-08-2024 Albumin [Mass/Vol] 3.9 g/dL Normal 3.5-5.0 [facility] Comment on above: Performed By: #### L 504.2610, L100.9950, L3300.1200, L100.0100, L501.9520, L300.3900, L3410.2400, L3200.1100, L3100.6900, L101.9900, L500.4050, L501.6710, L501.9985, L503.5510, L3200.0500, L3100.5440, L5500.0410, L3100.3425, L503.6150, L3300.0100, L3100.1850, L3400.0700, L503.6550, L3300.1800 ####[facility] [address] [place], [place], [phone] Albumin/Globulin [Mass ratio] 1.1 {ratio} Normal 0.9-2.[address] [facility] Comment on above: Performed By: #### L 504.2610, L100.9950, L3300.1200, L100.0100, L501.9520, L300.3900, L3410.2400, L3200.1100, L3100.6900, L101.9900, L500.4050, L501.6710, L501.9985, L503.5510, L3200.0500, L3100.5440, L5500.0410, L3100.3425, L503.6150, L3300.0100, L3100.1850, L3400.0700, L503.6550, L3300.1800 ####[facility] [address] [facility] [place], [place], [phone] ALK PHOS 155 U/L High 35-[address] [facility] Comment on above: Performed By: #### L 504.2610, L100.9950, L3300.1200, L100.0100, L501.9520, L300.3900, L3410.2400, L3200.1100, L3100.6900, L101.9900, L500.4050, L501.6710, L501.9985, L503.5510, L3200.0500, L3100.5440, L5500.0410, L3100.3425, L503.6150, L3300.0100, L3100.1850, L3400.0700, L503.6550, L3300.1800 ####[facility] [address] [facility] [address] [place], [place], [phone] ALT [Catalytic activity/Vol] 37 U/L High <=[address] [facility] Comment on above: Performed By: #### L 504.2610, L100.9950, L3300.1200, L100.0100, L501.9520, L300.3900, L3410.2400, L3200.1100, L3100.6900, L101.9900, L500.4050, L501.6710, L501.9985, L503.5510, L3200.0500, L3100.5440, L5500.0410, L3100.3425, L503.6150, L3300.0100, L3100.1850, L3400.0700, L503.6550, L3300.1800 ####[facility] [address] [facility] [place], [address] AST [Catalytic activity/Vol] 43 U/L High <=[address] [facility] Comment on above: Performed By: #### L 504.2610, L100.9950, L3300.1200, L100.0100, L501.9520, L300.3900, L3410.2400, L3200.1100, L3100.6900, L101.9900, L500.4050, L501.6710, L501.9985, L503.5510, L3200.0500, L3100.5440, L5500.0410, L3100.3425, L503.6150, L3300.0100, L3100.1850, L3400.0700, L503.6550, L3300.1800 ####[facility] [address] [place], [place], [phone] Bilirubin [Mass/Vol] 0.23 mg/dL Normal 0.00-1.30 [facility] Comment on above: Performed By: #### L 504.2610, L100.9950, L3300.1200, L100.0100, L501.9520, L300.3900, L3410.2400, L3200.1100, L3100.6900, L101.9900, L500.4050, L501.6710, L501.9985, L503.5510, L3200.0500, L3100.5440, L5500.0410, L3100.3425, L503.6150, L3300.0100, L3100.1850, L3400.0700, L503.6550, L3300.1800 ####[facility] [address] [place], [address] BUN/CRE 12.1 RATIO Normal 10-[address] [facility] Comment on above: Performed By: #### L 504.2610, L100.9950, L3300.1200, L100.0100, L501.9520, L300.3900, L3410.2400, L3200.1100, L3100.6900, L101.9900, L500.4050, L501.6710, L501.9985, L503.5510, L3200.0500, L3100.5440, L5500.0410, L3100.3425, L503.6150, L3300.0100, L3100.1850, L3400.0700, L503.6550, L3300.1800 ####[facility] [address] [place], [place], [id number] Calcium [Mass/Vol] 9.7 mg/dL Normal 7.6-11.0 [facility] Comment on above: Performed By: #### L 504.2610, L100.9950, L3300.1200, L100.0100, L501.9520, L300.3900, L3410.2400, L3200.1100, L3100.6900, L101.9900, L500.4050, L501.6710, L501.9985, L503.5510, L3200.0500, L3100.5440, L5500.0410, L3100.3425, L503.6150, L3300.0100, L3100.1850, L3400.0700, L503.6550, L3300.1800 ####[facility] [address] [place], [place], [phone](937) Chloride [Moles/Vol] 106 mmol/L Normal 98-108 [facility] Comment on above: Performed By: #### L 504.2610, L100.9950, L3300.1200, L100.0100, L501.9520, L300.3900, L3410.2400, L3200.1100, L3100.6900, L101.9900, L500.4050, L501.6710, L501.9985, L503.5510, L3200.0500, L3100.5440, L5500.0410, L3100.3425, L503.6150, L3300.0100, L3100.1850, L3400.0700, L503.6550, L3300.1800 ####[facility] [address] [place], [place], [phone](921) CO2 [Moles/Vol] 21.1 mmol/L Normal 21.0-32.[address] [facility] Comment on above: Performed By: #### L 504.2610, L100.9950, L3300.1200, L100.0100, L501.9520, L300.3900, L3410.2400, L3200.1100, L3100.6900, L101.9900, L500.4050, L501.6710, L501.9985, L503.5510, L3200.0500, L3100.5440, L5500.0410, L3100.3425, L503.6150, L3300.0100, L3100.1850, L3400.0700, L503.6550, L3300.1800 ####[facility] [address] [facility] [place], [place], [phone] Creatinine [Mass/Vol] 0.71 mg/dL Normal 0.70-1.20 [facility] Comment on above: Performed By: #### L 504.2610, L100.9950, L3300.1200, L100.0100, L501.9520, L300.3900, L3410.2400, L3200.1100, L3100.6900, L101.9900, L500.4050, L501.6710, L501.9985, L503.5510, L3200.0500, L3100.5440, L5500.0410, L3100.3425, L503.6150, L3300.0100, L3100.1850, L3400.0700, L503.6550, L3300.1800 ####[facility] [address] [facility] [place], [place], [phone] GAP 11 Normal 5-[address] [facility] Comment on above: Performed By: #### L 504.2610, L100.9950, L3300.1200, L100.0100, L501.9520, L300.3900, L3410.2400, L3200.1100, L3100.6900, L101.9900, L500.4050, L501.6710, L501.9985, L503.5510, L3200.0500, L3100.5440, L5500.0410, L3100.3425, L503.6150, L3300.0100, L3100.1850, L3400.0700, L503.6550, L3300.1800 ####[facility] [address] [facility] [place], [place], [id number] GFR/1.73 sq M.predicted among non-blacks MDRD (S/P/Bld) [Vol rate/Area] 107 mL/min/{1.73_m2} Normal >[address] [facility] Comment on above: Result Comment: mL/m in/1.73m2 CKD-EPI Creatinine Equation (2020) Performed By: #### L 504.2610, L100.9950, L3300.1200, L100.0100, L501.9520, L300.3900, L3410.2400, L3200.1100, L3100.6900, L101.9900, L500.4050, L501.6710, L501.9985, L503.5510, L3200.0500, L3100.5440, L5500.0410, L3100.3425, L503.6150, L3300.0100, L3100.1850, L3400.0700, L503.6550, L3300.1800 ####[facility] [address] [place], [address] Globulin (S) [Mass/Vol] 3.4 g/dL Normal 2.2-4.2 [facility] Comment on above: Performed By: #### L 504.2610, L100.9950, L3300.1200, L100.0100, L501.9520, L300.3900, L3410.2400, L3200.1100, L3100.6900, L101.9900, L500.4050, L501.6710, L501.9985, L503.5510, L3200.0500, L3100.5440, L5500.0410, L3100.3425, L503.6150, L3300.0100, L3100.1850, L3400.0700, L503.6550, L3300.1800 ####[facility] [address] [place], [address] Glucose [Mass/Vol] 93 mg/dL Normal 70-99 [facility] Comment on above: Performed By: #### L 504.2610, L100.9950, L3300.1200, L100.0100, L501.9520, L300.3900, L3410.2400, L3200.1100, L3100.6900, L101.9900, L500.4050, L501.6710, L501.9985, L503.5510, L3200.0500, L3100.5440, L5500.0410, L3100.3425, L503.6150, L3300.0100, L3100.1850, L3400.0700, L503.6550, L3300.1800 ####[facility] [address] [place], [address] Potassium [Moles/Vol] 4.2 mmol/L Normal 3.3-5.1 [facility] Comment on above: Performed By: #### L 504.2610, L100.9950, L3300.1200, L100.0100, L501.9520, L300.3900, L3410.2400, L3200.1100, L3100.6900, L101.9900, L500.4050, L501.6710, L501.9985, L503.5510, L3200.0500, L3100.5440, L5500.0410, L3100.3425, L503.6150, L3300.0100, L3100.1850, L3400.0700, L503.6550, L3300.1800 ####[facility] [address] [place], [address] Sodium [Moles/Vol] 138 mmol/L Normal 133-145 [facility] Comment on above: Performed By: #### L 504.2610, L100.9950, L3300.1200, L100.0100, L501.9520, L300.3900, L3410.2400, L3200.1100, L3100.6900, L101.9900, L500.4050, L501.6710, L501.9985, L503.5510, L3200.0500, L3100.5440, L5500.0410, L3100.3425, L503.6150, L3300.0100, L3100.1850, L3400.0700, L503.6550, L3300.1800 ####[facility] [address] [facility] [place], [place], [phone] T PROT 7.3 g/dL Normal 5.9-8.[address] [facility] Comment on above: Performed By: #### L 504.2610, L100.9950, L3300.1200, L100.0100, L501.9520, L300.3900, L3410.2400, L3200.1100, L3100.6900, L101.9900, L500.4050, L501.6710, L501.9985, L503.5510, L3200.0500, L3100.5440, L5500.0410, L3100.3425, L503.6150, L3300.0100, L3100.1850, L3400.0700, L503.6550, L3300.1800 ####[facility] [address] [place], [place], [id number] Urea nitrogen [Mass/Vol] 9 mg/dL Normal 4-[address] [facility] Comment on above: Performed By: #### L 504.2610, L100.9950, L3300.1200, L100.0100, L501.9520, L300.3900, L3410.2400, L3200.1100, L3100.6900, L101.9900, L500.4050, L501.6710, L501.9985, L503.5510, L3200.0500, L3100.5440, L5500.0410, L3100.3425, L503.6150, L3300.0100, L3100.1850, L3400.0700, L503.6550, L3300.1800 ####[facility] [address] [place], [place], [id number] Eosinophil percentageOrdered By: Quang Myles on 08-08-2024 Eosinophils/100 WBC (Bld) 3.8 % 0-[address] [facility] Erythrocyte Sed Rateon 08-08 SED RATE 69 mm/hr High 0-[address] [facility] Comment on above: Performed By: #### L 504.2610, L100.9950, L3300.1200, L100.0100, L501.9520, L300.3900, L3410.2400, L3200.1100, L3100.6900, L101.9900, L500.4050, L501.6710, L501.9985, L503.5510, L3200.0500, L3100.5440, L5500.0410, L3100.3425, L503.6150, L3300.0100, L3100.1850, L3400.0700, L503.6550, L3300.1800 ####[facility] [address] [place], [place], [id number] Erythrocyte distribution wid th ratioOrdered By: Quang Myles on 08-08-2024 Erythrocyte distribution width (RBC) [Ratio] 13.1 % 11.6-14.[address] [facility] Erythrocyte distribution wid th standard deviationOrdered By: Quang Myles on 08-08-2024 Erythrocyte distribution width (RBC) [Ratio] 46.1 fl High 35.1-43.[address] [facility] Erythrocyte sedimentation ra teOrdered By: Quang Myles on 08-08-2024 ESR (Bld) [Velocity] 69 mm/h High 0-30 [facility] Ferritinon 08-08-2024 Ferritin [Mass/Vol] 216 ng/mL Normal 22-378 [facility] Comment on above: Performed By: #### L 504.2610, L100.9950, L3300.1200, L100.0100, L501.9520, L300.3900, L3410.2400, L3200.1100, L3100.6900, L101.9900, L500.4050, L501.6710, L501.9985, L503.5510, L3200.0500, L3100.5440, L5500.0410, L3100.3425, L503.6150, L3300.0100, L3100.1850, L3400.0700, L503.6550, L3300.1800 ####[facility] [address] [place], [address] Gastrin, serumOrdered By: Ra treva Myles on 08-08-2024 Gastrin [Mass/Vol] 17 pg/mL 0-115 [facility] Gastroenterology Visit Repor ton 08-08-2024 Gastroenterology Visit Report Normal [facility] Glomerular filtration rate ( GFR) estimation/1.73 sq m using serum, plasma, or whole bOrdered By: Quang Myles on 08-08-2024 GFR/1.73 sq M.predicted among non-blacks MDRD (S/P/Bld) [Vol rate/Area] 107 mL/min/{1.73_m2} >[address] [facility] Hematocrit Auto (Bld) [Volum e fraction]Ordered By: Quang Myles on 08-08-2024 Hematocrit (Bld) [Volume fraction] 44.1 % 37-[address] [facility] Hemoglobin A1con 08-08-2024 HbA1c (Bld) [Mass fraction] 6.0 % High <=5.[address] [facility] Comment on above: Result Comment: Norm al < 5.7 % Prediabetic 5.7 - 6.4 % Diabetic >or= 6.5 % Please note range changes. Performed By: #### L 504.2610, L100.9950, L3300.1200, L100.0100, L501.9520, L300.3900, L3410.2400, L3200.1100, L3100.6900, L101.9900, L500.4050, L501.6710, L501.9985, L503.5510, L3200.0500, L3100.5440, L5500.0410, L3100.3425, L503.6150, L3300.0100, L3100.1850, L3400.0700, L503.6550, L3300.1800 ####[facility] [address] [place], [place], [phone] Hemoglobin A1c percentageOrd ered By: Quang Myles on 08-08-2024 HbA1c (Bld) [Mass fraction] 6.0 % High <5.[address] [facility] Hemoglobin measurementOrdere d By: Quang Myles on 08-08-2024 Hemoglobin (Bld) [Mass/Vol] 14.7 g/dL 12.0-15.[address] [facility] IgEOrdered By: Quang browne on 08-08-2024 IgE 122 IU/mL 6-[address] [facility] Immature granulocytes/100 WB C Auto (Bld)Ordered By: Quang Myles on 08-08-2024 Immature granulocytes/100 WBC (Bld) 0.500 % 0.0-0.[address] [facility] Interpretation of serum or p lasma protein pattern by immunofixation (narrative resultOrdered By: Quang Myles on 08-08-2024 Protein Fractions Immunofixation David [Interp] Not Observed g/dL Not Observed [facility] Ironon 08-08-2024 Iron [Mass/Vol] 75 ug/dL Normal 50-[address] [facility] Comment on above: Performed By: #### L 504.2610, L100.9950, L3300.1200, L100.0100, L501.9520, L300.3900, L3410.2400, L3200.1100, L3100.6900, L101.9900, L500.4050, L501.6710, L501.9985, L503.5510, L3200.0500, L3100.5440, L5500.0410, L3100.3425, L503.6150, L3300.0100, L3100.1850, L3400.0700, L503.6550, L3300.1800 ####[facility] [address] [place], [place], [phone] Iron measurement (mass/mass) Ordered By: Quang Myles on 08-08-2024 Iron (Unsp spec) [Mass/Mass] 75 ug/dL 50-[address] [facility] LDHon 08-08-2024 LDH 258 U/L High 84-[address] [facility] Comment on above: Order Comment: 1 Performed By: #### L 504.2610, L100.9950, L3300.1200, L100.0100, L501.9520, L300.3900, L3410.2400, L3200.1100, L3100.6900, L101.9900, L500.4050, L501.6710, L501.9985, L503.5510, L3200.0500, L3100.5440, L5500.0410, L3100.3425, L503.6150, L3300.0100, L3100.1850, L3400.0700, L503.6550, L3300.1800 ####[facility] [address] [place], [address] Laboratory - Miscellaneous t estsOrdered By: Quang Myles on 08-08-2024 Service comment (Unsp spec) [Interp] Comment . [facility] MCV (mean corpuscular volume ) determinationOrdered By: Quang Myles on 08-08-2024 MCV (RBC) [Entitic vol] 95.9 fL 81-99 [facility] Mean corpuscular hemoglobin (MCH) determinationOrdered By: Quang Myles on 08-08-2024 MCH (RBC) [Entitic mass] 32.0 pg 27.0-32.[address] [facility] Monocyte percentageOrdered B y: Quang Myles on 08-08-2024 Monocytes/100 WBC (Bld) 5.4 % 0-10 [facility] Neutrophil percentageOrdered By: Quang Myles on 08-08-2024 Neutrophils/100 WBC (Bld) 75.5 % High 47-[address] [facility] No Panel InformationOrdered By: Quang Myles on 08-08-2024 Addendum Document Comment . [facility] 43 U/L High <[address] [facility] Platelet countOrdered By: treva Myles on 08-08-2024 Platelets (Bld) [#/Vol] 375 10*3/uL 150-[address] [facility] Potassium measurement (mass/ volume)Ordered By: Quang Myles on 08-08-2024 Potassium (Unsp spec) [Mass/Vol] 4.2 mmol/L 3.3-5.[address] [facility] Prothrombin Time w/INRon INR Coag (PPP) [Relative time] 1.0 {INR} Normal [facility] Comment on above: Performed By: #### L 504.2610, L100.9950, L3300.1200, L100.0100, L501.9520, L300.3900, L3410.2400, L3200.1100, L3100.6900, L101.9900, L500.4050, L501.6710, L501.9985, L503.5510, L3200.0500, L3100.5440, L5500.0410, L3100.3425, L503.6150, L3300.0100, L3100.1850, L3400.0700, L503.6550, L3300.1800 ####[facility] [address] [place], [place], [phone] PT Coag (PPP) [Time] 12.8 s Normal 11.7-14.9 [facility] Comment on above: Performed By: #### L 504.2610, L100.9950, L3300.1200, L100.0100, L501.9520, L300.3900, L3410.2400, L3200.1100, L3100.6900, L101.9900, L500.4050, L501.6710, L501.9985, L503.5510, L3200.0500, L3100.5440, L5500.0410, L3100.3425, L503.6150, L3300.0100, L3100.1850, L3400.0700, L503.6550, L3300.1800 ####[facility] [address] [place], [place], [address] Prothrombin timeOrdered By: Quang Myles on 08-08-2024 PT Coag (PPP) [Time] 12.8 s 11.7-14.9 [facility] RBC Auto (Bld) [#/Vol]Ordere d By: Quang Myles on 08-08-2024 RBC (Bld) [#/Vol] 4.60 10*6/uL 4.2-5.4 [facility] Retic Panelon 08-08-2024 IM RET FRACTION 14.30 Normal 3.00-15.[address] [facility] Comment on above: Performed By: #### L 504.2610, L100.9950, L3300.1200, L100.0100, L501.9520, L300.3900, L3410.2400, L3200.1100, L3100.6900, L101.9900, L500.4050, L501.6710, L501.9985, L503.5510, L3200.0500, L3100.5440, L5500.0410, L3100.3425, L503.6150, L3300.0100, L3100.1850, L3400.0700, L503.6550, L3300.1800 ####[facility] [address] [place], [address] RET-HE 34.4 pg Normal 30-[address] [facility] Comment on above: Performed By: #### L 504.2610, L100.9950, L3300.1200, L100.0100, L501.9520, L300.3900, L3410.2400, L3200.1100, L3100.6900, L101.9900, L500.4050, L501.6710, L501.9985, L503.5510, L3200.0500, L3100.5440, L5500.0410, L3100.3425, L503.6150, L3300.0100, L3100.1850, L3400.0700, L503.6550, L3300.1800 ####[facility] [address] [place], [place], [id number] Retic Count 0.78 Normal 0.5-1.[address] [facility] Comment on above: Performed By: #### L 504.2610, L100.9950, L3300.1200, L100.0100, L501.9520, L300.3900, L3410.2400, L3200.1100, L3100.6900, L101.9900, L500.4050, L501.6710, L501.9985, L503.5510, L3200.0500, L3100.5440, L5500.0410, L3100.3425, L503.6150, L3300.0100, L3100.1850, L3400.0700, L503.6550, L3300.1800 ####[facility] [address] [place], [place], [id number] Reticulocyte hemoglobin equi valent (RET-He) measurementOrdered By: Quang Myles on 08-08-2024 Hemoglobin (Reticulocytes) [Entitic mass] 34.4 pg 30-[address] [facility] Reticulocytes Auto (Bld) [#/ Vol]Ordered By: Quang Myles on 08-08-2024 Reticulocytes/100 RBC (Bld) 0.78 % 0.5-1.[address] [facility] Serum DNA double strand anti body assay (units/volume)Ordered By: Quang Myles on 08-08-2024 DNA double strand Ab Qn (S) [IU]/mL 0-[address] [facility] Serum IgG subclass 1 measure ment (mass/volume)Ordered By: Quang Myles on 08-08-2024 IgG subclass 1 (S) [Mass/Vol] 509 mg/dL 248-[address] [facility] Serum IgG subclass 2 measure ment (mass/volume)Ordered By: Quang Myles on 08-08-2024 IgG subclass 2 (S) [Mass/Vol] 168 mg/dL 130-[address] [facility] Serum IgG subclass 3 measure ment (mass/volume)Ordered By: Quang Myles on 08-08-2024 IgG subclass 3 (S) [Mass/Vol] 73 mg/dL 15-[address] [facility] Serum Scl-70 antibody assay (units/volume)Ordered By: Quang Myles on 08-08-2024 SCL-70 extractable nuclear Ab Qn (S) TNP [facility] SCL-70 extractable nuclear Ab Qn (S) <0.2 AI 0.0-0.[address] [facility] Serum black walnut IgE antib eliecer assay (units/volume)Ordered By: Quang Myles on 08-08-2024 Black [place] Axe IgE Qn (S) <0.10 kU/L Class 0 [facility] Serum clam IgE antibody assa y (units/volume)Ordered By: Quang Myles on 08-08-2024 Clam IgE Qn (S) <0.10 kU/L Class [address] [facility] Serum classic neutrophil cyt oplasmic antibody assay (units/volume)Ordered By: Quang Myles on 08-08-2024 Neutrophil cytoplasmic Ab.classic Qn (S) <1:20 titer Neg:<1:[address] [facility] Serum codfish IgE antibody a ssay (units/volume)Ordered By: Quang Myles on 08-08-2024 Codfish IgE Qn (S) <0.10 kU/L Class 0 [facility] Serum corn IgE antibody assa y (units/volume)Ordered By: Quang Myles on 08-08-2024 [place] IgE Qn (S) <0.10 kU/L Class [address] [facility] Serum cow milk IgE antibody assay (units/volume)Ordered By: Quang Myles on 08-08-2024 Cow milk IgE Qn (S) 0.24 kU/L High Class 0/I [facility] Serum creatinine measurement (mass/volume)Ordered By: Quang Myles on 08-08-2024 Creatinine [Mass/Vol] 0.71 mg/dL 0.70-1.20 [facility] Serum egg white IgE antibody assay (units/volume)Ordered By: Quang Myles on 08-08-2024 Egg white IgE Qn (S) <0.10 kU/L Class 0 [facility] Serum globulin measurement ( mass/volume)Ordered By: Quang Myles on 08-08-2024 Globulin (S) [Mass/Vol] 3.5 g/dL 2.2-3.9 [facility] Serum glucose measurement (m ass/volume)Ordered By: Quang Myles on 08-08-2024 Glucose [Mass/Vol] 93 mg/dL 70-99 [facility] Serum or plasma C reactive p rotein measurement (mass/volume)Ordered By: Quang Myles on 08-08-2024 CRP [Mass/Vol] 16.80 mg/L High 0.0-3.[address] [facility] Serum or plasma IgA measurem ent (mass/volume)Ordered By: Quang Myles on 08-08-2024 IgA [Mass/Vol] 134 mg/dL 87-[address] [facility] Serum or plasma IgG measurem ent (mass/volume)Ordered By: Quang Myles on 08-08-2024 IgG [Mass/Vol] 945 mg/dL 586-[address] [facility] IgG [Mass/Vol] Not Reportable [facility] Serum or plasma alanine hair otransferase (ALT) measurementOrdered By: Quang Myles on 08-08-2024 ALT [Catalytic activity/Vol] 37 U/L High <[address] [facility] Serum or plasma albumin leslie urement (mass/volume)Ordered By: Quang Myles on 08-08-2024 Albumin [Mass/Vol] 3.9 g/dL 3.5-5.0 [facility] Serum or plasma albumin/glob ulin mass ratioOrdered By: Quang Myles on 08-08-2024 Albumin/Globulin [Mass ratio] 1.1 {ratio} 0.9-2.[address] [facility] Serum or plasma alkaline delfin sphatase measurementOrdered By: Quang Myles on 08-08-2024 ALP [Catalytic activity/Vol] 155 U/L High 35-[address] [facility] Serum or plasma alpha 1 glob ulin measurement by electrophoresis (mass/volume)Ordered By: Quang Myles on 08-08-2024 Alpha 1 globulin Elph [Mass/Vol] 0.2 g/dL 0.0-0.[address] [facility] Alpha 1 globulin Elph [Mass/Vol] 1.1 g/dL High 0.4-1.[address] [facility] Serum or plasma angiotensin converting enzyme measurement (enzymatic activity/volume)Ordered By: Quang Myles on 08-08-2024 Angiotensin converting enzyme [Catalytic activity/Vol] 62 U/L 14-[address] [facility] Serum or plasma beta globuli n measurement by electrophoresis (mass/volume)Ordered By: Quang Myles on 08-08-2024 Beta globulin Elph [Mass/Vol] 1.2 g/dL 0.7-1.[address] [facility] Serum or plasma calcium leslie urement (mass/volume)Ordered By: Quang Myles on 08-08-2024 Calcium [Mass/Vol] 9.7 mg/dL 7.6-11.0 [facility] Serum or plasma ferritin janet surement (mass/volume)Ordered By: Quang Myles on 08-08-2024 Ferritin [Mass/Vol] 216 ng/mL 22-378 [facility] Serum or plasma gamma globul in measurement by electrophoresis (mass/volume)Ordered By: Quang Myles on 08-08-2024 Gamma globulin Elph [Mass/Vol] 1.0 g/dL 0.4-1.[address] [facility] Serum or plasma immunoelectr ophoresis interpretation (nominal result)Ordered By: Quang Myles on 08-08-2024 Interpretation IEP [Interp] Comment . [facility] Serum or plasma protein leslie urement (mass/volume)Ordered By: Quang Myles on 08-08-2024 Protein [Mass/Vol] 6.9 g/dL 6.0-8.5 [facility] Serum or plasma urea nitroge n measurement (mass/volume)Ordered By: Quang Myles on 08-08-2024 Urea nitrogen [Mass/Vol] 9 mg/dL 4-[address] [facility] Serum peanut IgE antibody as say (units/volume)Ordered By: Quang Myles on 08-08-2024 Peanut IgE Qn (S) <0.10 kU/L Class [address] [facility] Serum perinuclear neutrophil cytoplasmic antibody titer by immunofluorescenceOrdered By: Quang Myles on 08-08-2024 Neutrophil cytoplasmic Ab.perinuclear IF (S) [Titer] <1:20 titer Neg:<1:[address] [facility] Serum soybean IgE antibody a ssay (units/volume)Ordered By: Quang Mlyes on 08-08-2024 Soybean IgE Qn (S) <0.10 kU/L Class 0 [facility] Serum tissue transglutaminas e (tTG) IgA antibody assay (units/volume)Ordered By: Quang Myles on 08-08-2024 tTG IgA Qn (S) <2 U/mL 0-[address] [facility] Serum wheat IgE antibody ass ay (units/volume)Ordered By: Quang Myles on 08-08-2024 Wheat IgE Qn (S) <0.10 kU/L Class [address] [facility] Sodium levelOrdered By: Wendy Au on 08-08-2024 Sodium [Moles/Vol] 138 mmol/L 133-145 [facility] TSH DL <= 0.005 mIU/L QnOrde red By: Quang Myles on 08-08-2024 TSH Qn 2.360 uIU/mL 0.300-4.[address] [facility] Thyroid Stim Hormone (TSH)on 08-08-2024 TSH 2.360 uIU/mL Normal 0.300-4.[address] [facility] Comment on above: Performed By: #### L 504.2610, L100.9950, L3300.1200, L100.0100, L501.9520, L300.3900, L3410.2400, L3200.1100, L3100.6900, L101.9900, L500.4050, L501.6710, L501.9985, L503.5510, L3200.0500, L3100.5440, L5500.0410, L3100.3425, L503.6150, L3300.0100, L3100.1850, L3400.0700, L503.6550, L3300.1800 ####[facility] [address] [place], [place], [phone] Total proteinOrdered By: Luis Myles on 08-08-2024 Protein [Mass/Vol] 7.3 g/dL 5.9-8.4 [facility] Venous blood ammonia measure mentOrdered By: Quang Myles on 08-08-2024 Ammonia (P) [Moles/Vol] 36.2 umol/L 11-[address] [facility] White blood cell (WBC) count Ordered By: Quang Myles on 08-08-2024 WBC (Bld) [#/Vol] 9.2 10*3/uL 4.4-11.0 [facility] Basic metabolic 2000 panelon 07-27-2024 Anion gap [Moles/Vol] 13 mmol/L Normal 8-15 [facility] Comment on above: Order Comment: Speci men Type: BLOOD SPECIMEN Ordering Facility: [facility] Address: [address] [place] [address] Performed By: #### 1 9123-9, 51960-1 #### [facility] CLIA [id number] [address] [place] [address] [place] Calcium [Mass/Vol] 10.3 mg/dL High 8.5-10.2 [facility] Comment on above: Order Comment: Speci men Type: BLOOD SPECIMEN Ordering Facility: [facility] Address: [address] [place] [address] Performed By: #### 1 9123-9, 50795-9 #### [facility] CLIA [id number] [address] [place] [address] [place] Chloride [Moles/Vol] 98 mmol/L Normal 98-107 [facility] Comment on above: Order Comment: Speci men Type: BLOOD SPECIMEN Ordering Facility: [facility] Address: [address] [place] [address] Performed By: #### 1 9123-9, 76322-2 #### [facility] CLIA [id number] [address] [place] [address] [place] CO2 [Moles/Vol] 23 mmol/L Normal 22-30 [facility] Comment on above: Order Comment: Speci men Type: BLOOD SPECIMEN Ordering Facility: [facility] Address: [address] [place] [address] Performed By: #### 1 9123-9, 29038-5 #### [facility] CLIA [id number] [address] [place] [address] [place] Creatinine [Mass/Vol] 0.88 mg/dL Normal 0.58-0.96 [facility] Comment on above: Order Comment: Speci men Type: BLOOD SPECIMEN Ordering Facility: [facility] Address: [address] [place] [address] Performed By: #### 1 9123-9, 25091-8 #### [facility] CLIA [id number] [address] [place] [address] [place] Creatinine and Glomerular filtration rate.predicted panel (S/P/Bld) 83 mL/min/1.73m??? Normal >=60 [facility] Comment on above: Order Comment: Speci men Type: BLOOD SPECIMEN Ordering Facility: [facility] Address: [address] [place] [address] Result Comment: Sandie mated Glomerular Filtration Rate (eGFR) is calculated using the 2020 CKD-EPI creatinine equation. This equation utilizes serum creatinine, sex, and age as parameters. The creatinine assay has traceable calibration to isotope dilution-mass spectrometry. Refer to KDIGO guidelines for clinical interpretation. In patients with unstable renal function, e.g. those with acute kidney injury, the eGFR may not accurately reflect actual GFR. Performed By: #### 1 9123-9, 24934-1 #### [facility] CLIA [id number] [address] [place] [address] [place] Glucose [Mass/Vol] 84 mg/dL Normal 74-99 [facility] Comment on above: Order Comment: Speci men Type: BLOOD SPECIMEN Ordering Facility: [facility] Address: [address] [place] [address] Result Comment: The [place] [employer] (ADA) provides guidance for cutoff values for fasting glucose and random glucose. The ADA defines fasting as no caloric intake for at least 8 hours. Fasting plasma glucose results between 100 to 125 mg/dL indicate increased risk for diabetes (prediabetes). Fasting plasma glucose results greater than or equal to 126 mg/dL meet the criteria for diagnosis of diabetes. In the absence of unequivocal hyperglycemia, results should be confirmed by repeat testing. In a patient with classic symptoms of hyperglycemia or hyperglycemic crisis, random plasma glucose results greater than or equal to 200 mg/dL meet the criteria for diagnosis of diabetes. Reference: Standards of Medical Care in Diabetes 2016, [place] [employer]. Diabetes Care. 2016.39(Suppl 1). Performed By: #### 1 9123-9, 11539-2 #### [facility] CLIA [id number] [address] [place] [address] [place] Potassium [Moles/Vol] 5.4 mmol/L High 3.7-5.1 [facility] Comment on above: Order Comment: Speci men Type: BLOOD SPECIMEN Ordering Facility: [facility] Address: [address] [place] [address] Performed By: #### 1 91239, 75370-0 #### [facility] CLIA [id number] [address] [place] [address] [place] Sodium [Moles/Vol] 134 mmol/L Low 136-144 [facility] Comment on above: Order Comment: Speci men Type: BLOOD SPECIMEN Ordering Facility: [facility] Address: [address] [place] [address] Performed By: #### 1 91239, 98409-8 #### [facility] CLIA [id number] [address] [place] [address] [place] Urea nitrogen [Mass/Vol] 25 mg/dL High 7-21 [facility] Comment on above: Order Comment: Speci men Type: BLOOD SPECIMEN Ordering Facility: [facility] Address: [address] [place] [address] Performed By: #### 1 9123-9, 58460-2 #### [facility] CLIA [id number] [address] [place] [address] [place] CBC panel Auto (Bld)on 07-27 Erythrocyte distribution width (RBC) [Ratio] 14.0 % Normal 11.5-15.0 [facility] Comment on above: Order Comment: Speci men Type: BLOOD SPECIMEN Ordering Facility: [facility] Address: [address] [place] [address] Performed By: #### 2 432-2, #### [facility] CLIA [id number] [address] [place] [address] [place] Hematocrit (Bld) [Volume fraction] 55.3 % High 36.0-46.0 [facility] Comment on above: Order Comment: Speci men Type: BLOOD SPECIMEN Ordering Facility: [facility] Address: [address] [place] [address] Performed By: #### 2 432-2, #### [facility] CLIA [id number] [address] [place] [address] [place] Hemoglobin (Bld) [Mass/Vol] 18.1 g/dL High 11.5-15.5 [facility] Comment on above: Order Comment: Speci men Type: BLOOD SPECIMEN Ordering Facility: [facility] Address: [address] [place] [address] Performed By: #### 2 432-2, #### [facility] CLIA [id number] [address] [place] [address] [place] MCH (RBC) [Entitic mass] 31.5 pg Normal 26.0-34.0 [facility] Comment on above: Order Comment: Speci men Type: BLOOD SPECIMEN Ordering Facility: [facility] Address: [address] [place] [address] Performed By: #### 2 4321-2, #### [facility] CLIA [id number] [address] [place], [place] [address] [place] MCHC (RBC) [Mass/Vol] 32.7 g/dL Normal 30.5-36.0 [facility] Comment on above: Order Comment: Speci men Type: BLOOD SPECIMEN Ordering Facility: [facility] Address: [address] [place] [address] Performed By: #### 2 4321-2, #### [facility] CLIA [id number] [address] [place] [address] [place] MCV (RBC) [Entitic vol] 96.3 fL Normal 80.0-100.0 [facility] Comment on above: Order Comment: Speci men Type: BLOOD SPECIMEN Ordering Facility: [facility] Address: [address] [place] [address] Performed By: #### 2 4321-2, #### [facility] CLIA [id number] [address] [place] [address] [place] Nucleated RBC (Bld) [#/Vol] 10*3/uL Normal <0.01 [facility] Comment on above: Order Comment: Speci men Type: BLOOD SPECIMEN Ordering Facility: [facility] Address: [address] [place] [address] Performed By: #### 2 432-2, #### [facility] CLIA [id number] [address] [place] [address] [place] Platelet mean volume (Bld) [Entitic vol] 9.5 fL Normal 9.0-12.7 [facility] Comment on above: Order Comment: Speci men Type: BLOOD SPECIMEN Ordering Facility: [facility] Address: [address] [place] [address] Performed By: #### 2 432-2, #### [facility] CLIA [id number] [address] [place] [address] [place] Platelets (Bld) [#/Vol] 385 10*3/uL Normal 150-400 [facility] Comment on above: Order Comment: Speci men Type: BLOOD SPECIMEN Ordering Facility: [facility] Address: [address] [place] [address] Performed By: #### 2 4321-2, #### [facility] CLIA [id number] [address] [place] [address] [place] RBC (Bld) [#/Vol] 5.74 10*6/uL High 3.90-5.20 [facility] Comment on above: Order Comment: Speci men Type: BLOOD SPECIMEN Ordering Facility: [facility] Address: [address] [place] [address] Performed By: #### 2 4321-2, #### [facility] CLIA [id number] [address] [place] [address] [place] WBC (Bld) [#/Vol] 12.54 10*3/uL High 3.70-11.00 [facility] Comment on above: Order Comment: Speci men Type: BLOOD SPECIMEN Ordering Facility: [facility] Address: [address] [place] [address] Performed By: #### 2 4321-2, #### [facility] CLIA [id number] [address] [place] [address] OF [place] CNDSon 07-27-2024 CNDS HNO ID: [id number] Author: CASE FONSECA MD Service: Cardiovascular Medicine Author Type: Physician Canceling And Cutting Control Clerk Type: Discharge Summary Filed: 08/08/2024 18:58 Note Text: -------- Attestation signed by Case Fonseca MD at 08/08/2024 6:58 PM As above -------- Department of Cardiovascular Medicine Discharge Summary (Template ID [id number]) PATIENT NAME: Michelle Mitchell ADMISSION DATE: 07/24/2024 DISCHARGE DATE: 07/27/2024 Attending Physician: Case Fonseca MD Code Status: Full Code Primary Service: Imaging, Hvi Admission Diagnosis: ADHF, mobile echodensity on echo Final Diagnosis: Mobile echodensity on echo Active Hospital Problems Diagnosis POA Endocarditis Yes Atypical chest pain Yes Cardiomyopathy, hypertrophic nonobstructive (HCC) Yes History of pulmonary embolism Unknown Anticoagulation management encounter Unknown Paroxysmal ventricular tachycardia (HCC) Unknown H/O left mastectomy Yes Hx of cervical cancer Yes Hx of ovarian cancer Yes History of DVT of lower extremity Yes 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 Reason for Hospitalization: Patient transferred to [facility] from [place] for concerns for ADHF and hx of HCM. Brief Hospital Course/Narrative: Patient admitted to cardiology imaging service for evaluation of possible IE and ADHF. Blood cultures drawn 07/24. Patient started on 80 IV lasix. ID consulted. MICKI showed a thin, filamentous echodensity on the RV lead in the right atrium, measuring ~1.4 cm which appears new from MICKI on 2017. Dr. Fonseca and EP agree it is likely fibrous material leftover from the previous device extraction in 2017. Start toprol XL [address] Fonseca. Patient discharged in stable condition with instructions to follow up with her local PCP and gate shear operator in [place]. Consults: Infectious Disease, Electrophysiology, and Psychiatry Major Procedure or Operation: None Other Procedures, Testing AND Radiology: EKG, US Leg WAN DVT, MICKI, TTE, ICD device check, XR KUB Patient Condition at Discharge: Stable Disposition: Home with Self Care Information Provided to the Patient: Patient given copy of After Visit Summary which included activity instructions, diet instructions, wound care instructions, medication instructions and follow up appointment. ALLERGIES Allergen Reactions Prozac [Fluoxetine * Other: See Comments suicidal ideations Azithromycin Intolerance [place] Anaphylaxis [place] Anaphylaxis pickles Fish Anaphylaxis Levofloxacin In D5w Swelling, Itching IV site swollen, ceased after d/c, redness and itching at site Neurontin [Gabapent* Mental Status Change Shellfish Anaphylaxis Tigan [Trimethobenz* Anaphylaxis Tolerates benzocaine spray Ultram [Tramadol] Hives Pt states she also pukes a lot Vicodin [Hydrocodon* Shortness of Breath pt states that she is able to take percocet Discharge Medications: Medication List START taking these medications metoprolol succinate ER 25 mg 24 hr tablet Commonly known as: TOPROL XL Take 1 tablet by mouth once daily. CONTINUE taking these medications AMBIEN 10 mg Generic drug: zolpidem dicyclomine 10 mg capsule Commonly known as: BENTYL Take 1 capsule by mouth three times a day before meals. pantoprazole DR 40 mg tablet Commonly known as: PROTONIX Take 1 tablet by mouth two times a day before meals at 6 am and 4 pm. psyllium 3.4 gram packet Commonly known as: METAMUCIL Take 1 packet by mouth two times a day. sucralfate 1 gram tablet Commonly known as: CARAFATE Take 1 tablet by mouth two times a day before meals. VENTOLIN HFA 90 mcg/actuation inhaler Generic drug: albuterol HFA vortioxetine 10 mg tablet Commonly known as: TRINTELLIX XANAX 0.5 mg tablet Generic drug: ALPRAZolam Where to Get Your Medications These medications were sent to [facility] [address] [place] [id number] - [address] [place] [address] - [phone] [place] [address] metoprolol succinate ER 25 mg 24 hr tablet Transitions of Care Critical Issues: Outpatient Management: * Are there important medication changes and/or outstanding issues that need to be addressed: See Above * What is the plan for follow up: Follow up with local PCP and gate shear operator in [place] Future Appointments: No future appointments. Highest Readmis (more content not included)... Normal [facility] Culture, Blood (WB)on 2024 CUB No growth in 5 days. Normal [facility] Comment on above: Performed By: #### M 200.1000 ####[facility] [id number] [place], [address] Magnesium SerPl-mCncon 07-27 Magnesium [Mass/Vol] 2.3 mg/dL Normal 1.7-2.3 [facility] Comment on above: Order Comment: Speci men Type: BLOOD SPECIMEN Ordering Facility: [facility] Address: [address] [place] [address] Performed By: #### 1 9123-9, 00969-5 #### [facility] CLIA [id number] [address] [place] [address] [place] [address] [place] PT EDon 07-27-2024 PT ED HNO ID: [id number] Author: IRLANDA MOORE RPh Service: Pharmacy Author Type: Pharmacist Type: Patient Education Filed: 07/27/2024 08:40 Note Text: Heart Failure Counseling with Video Instruction Education Note Patient Name:Hugh Mitchell Service Date: 07/27/2024 Service Time: 8:40 AM Heart Failure Education Provided: Patient was provided video instruction of heart failure management, activity as tolerated, signs and symptoms of heart failure/worsening heart failure, and to contact their physician if exhibits these symptoms. Video instructed patient to contact his or her HF physician if his or her weight increases or decreases more than or equal to 4 lbs from dry weight. Medication Education Provided: 1. Reason for taking medications and treatment goals. 2. Benefits of medication therapy. 3. How medications work. 4. Necessary laboratory monitoring. 5. When to take medications and what to do if a dose is missed. 6. Drug interactions (Rx, OTC, herbal) and importance of notifying healthcare provider with any medication changes. 7. Potential duration of therapy. 8. Potential side effects of medications. 9. Use of control measures if applicable. 10. Importance of regularly filling prescriptions and taking medications. 11. Proper storage of medications. Heart Failure education via video instruction was documented by nursing staff. If additional medication education is warranted, please contact the pharmacy. Current Inpatient Medications: Current Facility-Administered Medications Medication Dose Route Frequency melatonin 3 mg tab(s) 3 mg ORAL DAILY (8 PM) polyethylene glycol 3350 17 g packet 17 g ORAL DAILY sodium chloride 0.9 % (flush) 2-10 mL (BD POSIFLUSH) 2-10 mL INTRAVENOUS DIRECTED PRN And perflutren lipid microspheres 1.1 mg/mL 1.3 mL injection (DEFINITY) 1.3 mL INTRAVENOUS DIRECTED PRN ALPRAZolam 0.5 mg tab(s) (XANAX) 0.5 mg ORAL BID zolpidem 10 mg tab(s) (AMBIEN) 10 mg ORAL AT BEDTIME pantoprazole DR 40 mg tab(s) (PROTONIX) 40 mg ORAL BID AC (0600/1600) sucralfate 1 g tab(s) (CARAFATE) 1 g ORAL BID AC senna 8.6 mg tab(s) (SENOKOT) 8.6 mg ORAL BID bisacodyl 10 mg suppository (DULCOLAX) 10 mg RECTAL DAILY PRN metoprolol succinate ER 25 mg tab(s) (TOPROL XL) 25 mg ORAL DAILY FURTHER RECOMMENDATIONS (IF ANY): n/a Irlanda Moore [facility] PAGER: [phone] [facility] PT ED HNO ID: [id number] Author: JARVIS PALOMINO DTR Service: Nutrition Therapy Author Type: Student Ministries Director Type: Patient Education Filed: 07/27/2024 08:38 Note Text: NUTRITION THERAPY PATIENT EDUCATION SERVICE DATE: 07/27/2024 SERVICE TIME: 825 TOPIC: Heart Failure Exemption from nutrition education: Patient/family declined diet education due to receipt of previous instructions Patient/family declined diet education LEARNING ASSESSMENT Individuals Assessed: Patient Preferred Learning Method: Written Instruction Barriers to Learning: None Evident LEARNING RESPONSE Instruction Provided to: Patient Patient / Family Response: Performs Independently and Verbalizes Understanding Method of Instruction: Written instruction/Handouts Material(s) Provided to Patient: Education Materials Provided Nutrition Education CCHS: Sodium Controlled Diet for Heart Failure MNT Billing: $ Routine Care : 1 unit SIGNATURE: Jarvis Palomino DTR PATIENT NAME: Michelle Mitchell DATE: July 27, 2024 TIME: 8:38 AM PAGER: [facility] ALLIED HEALTH 07-26-2024 ALLIED HEALTH HNO ID: [id number] Author: HARITHA GOMEZ Art Therapist Service: Art Therapy Author Type: Art Therapist Type: Allied Health Filed: 07/26/2024 17:16 Note Text: ART THERAPY NOTE SERVICE DATE: 07/26/2024 SERVICE TIME: 1258 J53-11 Referred By: Nurse on floor Reason for Referral: Anxiety, pain Session Type: Initial Time Spent (minutes): 30 COMMENTS: Consult received and appreciated. Pt appeared awake and alert seated in chair using phone upon arrival and introduction of self and service. Pt noted need to finish message then was receptive to visit. Pt shared about her admission, family, current considerations, stressors, and means of coping. Also, reported usual high activity level and challenge of admission in the change of pace. Pt noted improvement in clinical state since admission and feeling closer to her baseline; anticipation of discharge tomorrow. She described her spouse as supportive. Pt identified use of coloring to support positive coping for years related to various stressors. She expressed impact of non-verbal forms of expression, processing, and containment (trauma, sane). Affirmed pt self awareness, sense of agency and reiterated some of the therapeutic benefits of coloring. Spoke about metaphor contained in art process related to life experiences, adaptation and sense of control. Pt had a box of crayons bedside and reported having completed four coloring books during hospitalization(s) (63, intuition, 4yo). Pt voiced desire for additional coloring surfaces (any). Preferences reviewed and materials gathered. Additionally, offered an alternate to coloring pages should pt run out again. Pt voiced understanding. Pt declined option for other media at this time, noted satisfaction with coloring. Pt thanked therapist and denied other needs at this time. Active listening, validation and support provided throughout. Pt reported headache and awaiting medication; nursing aware. Will follow up as able. SIGNATURE: Iván Ware PATIENT NAME: Michelle Mitchell DATE: July 26, 2024 TIME: 4:40 PM PAGER/CONTACT #: [phone] [facility] Basic metabolic 2000 panelon 07-26-2024 Anion gap [Moles/Vol] 14 mmol/L Normal 8-15 [facility] Comment on above: Order Comment: Speci men Type: BLOOD SPECIMEN Ordering Facility: [facility] Address: [address] [place] [address] Performed By: #### 2 4321-2, #### [facility] CLIA [id number] [address] [place] [address] [place] Calcium [Mass/Vol] 9.4 mg/dL Normal 8.5-10.2 [facility] Comment on above: Order Comment: Speci men Type: BLOOD SPECIMEN Ordering Facility: [facility] Address: [address] [place] [address] Performed By: #### 2 4321-2, #### [facility] CLIA [id number] [address] [place] [address] [place] Chloride [Moles/Vol] 98 mmol/L Normal 98-107 [facility] Comment on above: Order Comment: Speci men Type: BLOOD SPECIMEN Ordering Facility: [facility] Address: [address] [place] [address] Performed By: #### 2 4321-2, #### [facility] CLIA [id number] [address] [place], [place] [address] [place] CO2 [Moles/Vol] 24 mmol/L Normal 22-30 [facility] Comment on above: Order Comment: Speci men Type: BLOOD SPECIMEN Ordering Facility: [facility] Address: [address] [place], [place] [address] Performed By: #### 2 4321-2, #### [facility] CLIA [id number] [address] [place], [place] [address] [place] Creatinine [Mass/Vol] 1.02 mg/dL High 0.58-0.96 [facility] Comment on above: Order Comment: Speci men Type: BLOOD SPECIMEN Ordering Facility: [facility] Address: [address] [place] [address] Performed By: #### 2 4321-2, #### [facility] CLIA [id number] [address] [place] [address] [place] Creatinine and Glomerular filtration rate.predicted panel (S/P/Bld) 70 mL/min/1.73m??? Normal >=60 [facility] Comment on above: Order Comment: David horton Type: BLOOD SPECIMEN Ordering Facility: [facility] Address: [address] [place] [address] Result Comment: Sandie mated Glomerular Filtration Rate (eGFR) is calculated using the 2020 CKD-EPI creatinine equation. This equation utilizes serum creatinine, sex, and age as parameters. The creatinine assay has traceable calibration to isotope dilution-mass spectrometry. Refer to KDIGO guidelines for clinical interpretation. In patients with unstable renal function, e.g. those with acute kidney injury, the eGFR may not accurately reflect actual GFR. Performed By: #### 2 4321-2, #### [facility] CLIA [id number] [address] [place] [address] [place] Glucose [Mass/Vol] 98 mg/dL Normal 74-99 [facility] Comment on above: Order Comment: David horton Type: BLOOD SPECIMEN Ordering Facility: [facility] Address: [address] [place] [address] Result Comment: The [place] Diabetes Association (ADA) provides guidance for cutoff values for fasting glucose and random glucose. The ADA defines fasting as no caloric intake for at least 8 hours. Fasting plasma glucose results between 100 to 125 mg/dL indicate increased risk for diabetes (prediabetes). Fasting plasma glucose results greater than or equal to 126 mg/dL meet the criteria for diagnosis of diabetes. In the absence of unequivocal hyperglycemia, results should be confirmed by repeat testing. In a patient with classic symptoms of hyperglycemia or hyperglycemic crisis, random plasma glucose results greater than or equal to 200 mg/dL meet the criteria for diagnosis of diabetes. Reference: Standards of Medical Care in Diabetes 2016, [place] Diabetes Association. Diabetes Care. 2016.39(Suppl 1). Performed By: #### 2 4321-2, #### [facility] CLIA [id number] [address] [place] [address] [place] Potassium [Moles/Vol] 4.5 mmol/L Normal 3.7-5.1 [facility] Comment on above: Order Comment: Speci men Type: BLOOD SPECIMEN Ordering Facility: [facility] Address: [address] [place] [address] Performed By: #### 2 432-2, #### [facility] CLIA [id number] [address] [place] [address] [place] Sodium [Moles/Vol] 136 mmol/L Normal 136-144 [facility] Comment on above: Order Comment: Speci men Type: BLOOD SPECIMEN Ordering Facility: [facility] Address: [address] [place] [address] Performed By: #### 2 432-2, #### [facility] CLIA [id number] [address] [place] [address] [place] Urea nitrogen [Mass/Vol] 29 mg/dL High 7-21 [facility] Comment on above: Order Comment: Speci men Type: BLOOD SPECIMEN Ordering Facility: [facility] Address: [address] [place] [address] Performed By: #### 2 4322, #### [facility] CLIA [id number] [address] [place], [place] [address] [place] CBC panel Auto (Bld)on 07-26 Erythrocyte distribution width (RBC) [Ratio] 14.1 % Normal 11.5-15.0 [facility] Comment on above: Order Comment: Speci men Type: BLOOD SPECIMENOrdering Facility: [facility] Address: [address] [place] [address] Performed By: #### 5 8410-2 ####[facility] [id number] [place] [address] [place] Hematocrit (Bld) [Volume fraction] 50.7 % High 36.0-46.0 [facility] Comment on above: Order Comment: Speci men Type: BLOOD SPECIMENOrdering Facility: [facility] Address: [address] [place] [address] Performed By: #### 5 8410-2 ####[facility] [id number] [place] [address] [place] Hemoglobin (Bld) [Mass/Vol] 16.3 g/dL High 11.5-15.5 [facility] Comment on above: Order Comment: Speci men Type: BLOOD SPECIMENOrdering Facility: [facility] Address: [address] [place] [address] Performed By: #### 5 8410-2 ####[facility] [id number] [place] [address] [place] MCH (RBC) [Entitic mass] 31.3 pg Normal 26.0-34.0 [facility] Comment on above: Order Comment: Speci men Type: BLOOD SPECIMENOrdering Facility: [facility] Address: [address] [place] [address] Performed By: #### 5 8410-2 ####[facility] [id number] [place] [address] [place] MCHC (RBC) [Mass/Vol] 32.1 g/dL Normal 30.5-36.0 [facility] Comment on above: Order Comment: Speci men Type: BLOOD SPECIMENOrdering Facility: [facility] Address: [address] [place] [address] Performed By: #### 5 8410-2 ####[facility] [id number] [place] [address] [place] MCV (RBC) [Entitic vol] 97.3 fL Normal 80.0-100.0 [facility] Comment on above: Order Comment: Speci men Type: BLOOD SPECIMENOrdering Facility: [facility] Address: [address] [place] [address] Performed By: #### 5 8410-2 ####[facility] [id number] [place] [address] [place] Nucleated RBC (Bld) [#/Vol] 10*3/uL Normal <0.01 [facility] Comment on above: Order Comment: Speci men Type: BLOOD SPECIMENOrdering Facility: [facility] Address: [address] [place] [address] Performed By: #### 5 8410-2 ####[facility] [id number] [place] [address] [place] Platelet mean volume (Bld) [Entitic vol] 9.8 fL Normal 9.0-12.7 [facility] Comment on above: Order Comment: Speci men Type: BLOOD SPECIMENOrdering Facility: [facility] Address: [address] [place] [address] Performed By: #### 5 8410-2 ####[facility] [id number] [place] [address] [place] Platelets (Bld) [#/Vol] 344 10*3/uL Normal 150-400 [facility] Comment on above: Order Comment: Speci men Type: BLOOD SPECIMENOrdering Facility: [facility] Address: [address] [place] [address] Performed By: #### 5 8410-2 ####[facility] [id number] [place] [address] [place] RBC (Bld) [#/Vol] 5.21 10*6/uL High 3.90-5.20 [facility] Comment on above: Order Comment: Speci men Type: BLOOD SPECIMENOrdering Facility: [facility] Address: [address] [place] [address] Performed By: #### 5 8410-2 ####[facility] [id number] [place] [address] [place] WBC (Bld) [#/Vol] 15.07 10*3/uL High 3.70-11.00 [facility] Comment on above: Order Comment: Speci men Type: BLOOD SPECIMENOrdering Facility: [facility] Address: [address] [place] [address] Performed By: #### 5 8410-2 ####[facility] [id number] [address] OF [place] CNOVon 07-26-2024 CNOV Office Visit ([facility] ) -------- MICHELLE MITCHELL ([id number]) 1980 F Date Time Provider Department 07/26/24 8:15 AM [facility] J-2 [facility] During your visit today, we recorded the following information about you: Referring Provider: TEJAL RODRÍGUEZ [[id number]] Allergies As of Date: 07/26/2024 Noted Allergy Reaction PROZAC (FLUOXETINE HCL) 11/07/2013 14 - Other: See Comments Comments: suicidal ideations AZITHROMYCIN 10/19/2006 5 - Intolerance CUCUMBER 09/02/2010 10 - Anaphylaxis CUCUMBER 05/15/2024 10 - Anaphylaxis Comments: pickles FISH 08/20/2013 10 - Anaphylaxis LEVOFLOXACIN IN D5W 04/05/2013 7 - Swelling 9 - Itching Comments: IV site swollen, ceased after d/c, redness and itching at site NEURONTIN (GABAPENTIN) 05/17/2011 1 - Mental Status Change SHELLFISH 08/20/2013 10 - Anaphylaxis TIGAN (TRIMETHOBENZAMIDE-BENZO JOHN*09/22/2012 10 - Anaphylaxis Comments: Tolerates benzocaine spray ULTRAM (TRAMADOL) 12/08/2014 4 - Hives Comments: Pt states she also pukes a lot VICODIN (HYDROCODONE-ACETAMINOPH E*01/30/2007 12 - Shortness of Breath Comments: pt states that she is able to take percocet Date Reviewed: 07/25/2024 Reviewed by: Huan Kahn RN - Fully Assessed Reason for Visit: Spirometry [191] Primary Visit Diagnosis:Preoperative examination, unspecified [Z01.818] Prescriptions as of 07/26/2024 - dicyclomine (BENTYL) 10 mg capsule Take 1 capsule by mouth three times a day before meals. - pantoprazole DR (PROTONIX) 40 mg tablet Take 1 tablet by mouth two times a day before meals at 6 am and 4 pm. - sucralfate (CARAFATE) 1 gram tablet Take 1 tablet by mouth two times a day before meals. - psyllium (METAMUCIL) 3.4 gram packet Take 1 packet by mouth two times a day. - vortioxetine (TRINTELLIX) 10 mg tablet Take 10 mg by mouth once daily. - albuterol HFA (VENTOLIN HFA) 90 mcg/actuation inhaler Inhale 2 Puffs as instructed every 4 hours as needed for wheezing/shortness of breath. - ALPRAZolam (XANAX) 0.5 mg tablet Take 0.5 mg by mouth twice daily. - zolpidem (AMBIEN) 10 mg Tab Take 10 mg by mouth daily at bedtime. Facility-Administered Medications as of 07/26/2024 - senna 8.6 mg tab(s) (SENOKOT) - bisacodyl 10 mg suppository (DULCOLAX) - melatonin 3 mg tab(s) - polyethylene glycol 3350 17 g packet - sodium chloride 0.9 % (flush) 2-10 mL (BD POSIFLUSH) - perflutren lipid microspheres 1.1 mg/mL 1.3 mL injection (DEFINITY) - ALPRAZolam 0.5 mg tab(s) (XANAX) - zolpidem 10 mg tab(s) (AMBIEN) - pantoprazole DR 40 mg tab(s) (PROTONIX) - sucralfate 1 g tab(s) (CARAFATE) - heparin iv infusion 25,000 units in NaCl 0.45% 250 mL STROKE NOMOGRAM Problem List As Of Date 07/26/2024 Noted Resolved ICD (implantable cardioverter-defibrillat or), s*10/24/2006 Unspecified asthma, with status asthmaticus [J4* 05/23/2014 Leukocytosis [D72.829] 03/21/2010 Atypical chest pain [R07.89] 03/21/2010 Gastric ulcer [K25.9] 08/30/2010 Nausea [R11.0] 12/05/2011 06/17/2014 Cardiomyopathy, hypertrophic nonobstructive (HC*12/05/2011 Pneumonia [J18.9] 04/14/2013 05/23/2014 Near syncope [R55] 06/27/2013 05/23/2014 Pain, joint, ankle, right [M25.571] 10/03/2013 05/23/2014 Achilles tendinitis [M76.60] 10/31/2013 05/23/2014 Depression [F32.A] 11/06/2013 05/23/2014 Syncope and collapse [R55] 11/07/2013 05/23/2014 Orthostatic hypotension [I95.1] 11/07/2013 05/23/2014 Hypokalemia not associated with diuretics [E87.*11/07/2013 Generalized abdominal pain [R10.84] 12/13/2013 Neuropathic pain [M79.2] 06/17/2014 SUMMARY 12/07/2014 RLQ abdominal pain [R10.31] 07/09/2015 Chest pain [R07.9] 08/10/2016 PE (pulmonary thromboembolism) (HCC) [I26.99] 11/30/2016 Left breast mass [N63.20] 12/23/2016 History of left breast cancer [Z85.3] 12/23/2016 BRCA2 positive [Z15.01, Z15.09] 12/23/2016 Bilateral fibrocystic breast changes [N60.11, N*06/24/2017 Dense breasts [R92.30] 06/24/2017 Family history of breast cancer [Z80.3] 06/24/2017 History of breast cancer in female [Z85.3] 06/24/2017 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 [Z15.01,*06/24/2017 Fibroadenoma, left [D24.2] 06/24/2017 Jaw mass [M27.8] 08/12/2017 09/06/2017 Gastroesophageal reflux disease [K21.9] 08/17/2017 Nausea and vomiting [R11.2] 08/22/2017 Anxiety [F41.9] 05/02/2018 Palpitations [R00.2] 10/02/2019 Nicotine use disorder, F17.2 [F17.200] 04/25/2021 CHF (congestive heart failure) (HCC) [I50.9] 04/25/2021 HOCM (hypertrophic obstructive cardiomyopathy) *05/15/2024 Abnormal CXR [R93.89] 05/15/2024 Abscess of left leg [L02.416] 05/15/2024 Leg wound, left, initial encounter [S81.802A] 05/17/2024 Hepatomegaly [R16.0] 07/04/2024 Other ascites [R18.8] 07/04/2024 Abdominal pain [R10.9] 07/04/2024 Leukopenia [D72.819] 07/04/2024 Endocarditis [I38] 07/24/2024 H/O left mastectomy [Z90.12] 07/24/2024 Hx of cervical cancer [Z85.41] 07/12 (more content not included)... Normal [facility] CNOV Office Visit ([place] ) -------- MICHELLE MITCHELL ([id number]) 1980 F Date Time Provider Department 07/26/24 8:00 AM PUL [facility] J-2 [place] During your visit today, we recorded the following information about you: Referring Provider: TEJAL RODRÍGUEZ [[id number]] Allergies As of Date: 07/26/2024 Noted Allergy Reaction PROZAC (FLUOXETINE HCL) 11/07/2013 14 - Other: See Comments Comments: suicidal ideations AZITHROMYCIN 10/19/2006 5 - Intolerance CUCUMBER 09/02/2010 10 - Anaphylaxis CUCUMBER 05/15/2024 10 - Anaphylaxis Comments: pickles FISH 08/20/2013 10 - Anaphylaxis LEVOFLOXACIN IN D5W 04/05/2013 7 - Swelling 9 - Itching Comments: IV site swollen, ceased after d/c, redness and itching at site NEURONTIN (GABAPENTIN) 05/17/2011 1 - Mental Status Change SHELLFISH 08/20/2013 10 - Anaphylaxis TIGAN (TRIMETHOBENZAMIDE-BENZO JOHN*09/22/2012 10 - Anaphylaxis Comments: Tolerates benzocaine spray ULTRAM (TRAMADOL) 12/08/2014 4 - Hives Comments: Pt states she also pukes a lot VICODIN (HYDROCODONE-ACETAMINOPH E*01/30/2007 12 - Shortness of Breath Comments: pt states that she is able to take percocet Date Reviewed: 07/25/2024 Reviewed by: Huan Kahn RN - Fully Assessed Reason for Visit: Spirometry [191] Primary Visit Diagnosis:Preoperative examination, unspecified [Z01.818] Prescriptions as of 07/26/2024 - dicyclomine (BENTYL) 10 mg capsule Take 1 capsule by mouth three times a day before meals. - pantoprazole DR (PROTONIX) 40 mg tablet Take 1 tablet by mouth two times a day before meals at 6 am and 4 pm. - sucralfate (CARAFATE) 1 gram tablet Take 1 tablet by mouth two times a day before meals. - psyllium (METAMUCIL) 3.4 gram packet Take 1 packet by mouth two times a day. - vortioxetine (TRINTELLIX) 10 mg tablet Take 10 mg by mouth once daily. - albuterol HFA (VENTOLIN HFA) 90 mcg/actuation inhaler Inhale 2 Puffs as instructed every 4 hours as needed for wheezing/shortness of breath. - ALPRAZolam (XANAX) 0.5 mg tablet Take 0.5 mg by mouth twice daily. - zolpidem (AMBIEN) 10 mg Tab Take 10 mg by mouth daily at bedtime. Facility-Administered Medications as of 07/26/2024 - senna 8.6 mg tab(s) (SENOKOT) - bisacodyl 10 mg suppository (DULCOLAX) - melatonin 3 mg tab(s) - polyethylene glycol 3350 17 g packet - sodium chloride 0.9 % (flush) 2-10 mL (BD POSIFLUSH) - perflutren lipid microspheres 1.1 mg/mL 1.3 mL injection (DEFINITY) - ALPRAZolam 0.5 mg tab(s) (XANAX) - zolpidem 10 mg tab(s) (AMBIEN) - pantoprazole DR 40 mg tab(s) (PROTONIX) - sucralfate 1 g tab(s) (CARAFATE) - heparin iv infusion 25,000 units in NaCl 0.45% 250 mL STROKE NOMOGRAM Problem List As Of Date 07/26/2024 Noted Resolved ICD (implantable cardioverter-defibrillat or), s*10/24/2006 Unspecified asthma, with status asthmaticus [J4* 05/23/2014 Leukocytosis [D72.829] 03/21/2010 Atypical chest pain [R07.89] 03/21/2010 Gastric ulcer [K25.9] 08/30/2010 Nausea [R11.0] 12/05/2011 06/17/2014 Cardiomyopathy, hypertrophic nonobstructive (HC*12/05/2011 Pneumonia [J18.9] 04/14/2013 05/23/2014 Near syncope [R55] 06/27/2013 05/23/2014 Pain, joint, ankle, right [M25.571] 10/03/2013 05/23/2014 Achilles tendinitis [M76.60] 10/31/2013 05/23/2014 Depression [F32.A] 11/06/2013 05/23/2014 Syncope and collapse [R55] 11/07/2013 05/23/2014 Orthostatic hypotension [I95.1] 11/07/2013 05/23/2014 Hypokalemia not associated with diuretics [E87.*11/07/2013 Generalized abdominal pain [R10.84] 12/13/2013 Neuropathic pain [M79.2] 06/17/2014 SUMMARY 12/07/2014 RLQ abdominal pain [R10.31] 07/09/2015 Chest pain [R07.9] 08/10/2016 PE (pulmonary thromboembolism) (HCC) [I26.99] 11/30/2016 Left breast mass [N63.20] 12/23/2016 History of left breast cancer [Z85.3] 12/23/2016 BRCA2 positive [Z15.01, Z15.09] 12/23/2016 Bilateral fibrocystic breast changes [N60.11, N*06/24/2017 Dense breasts [R92.30] 06/24/2017 Family history of breast cancer [Z80.3] 06/24/2017 History of breast cancer in female [Z85.3] 06/24/2017 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 [Z15.01,*06/24/2017 Fibroadenoma, left [D24.2] 06/24/2017 Jaw mass [M27.8] 08/12/2017 09/06/2017 Gastroesophageal reflux disease [K21.9] 08/17/2017 Nausea and vomiting [R11.2] 08/22/2017 Anxiety [F41.9] 05/02/2018 Palpitations [R00.2] 10/02/2019 Nicotine use disorder, F17.2 [F17.200] 04/25/2021 CHF (congestive heart failure) (HCC) [I50.9] 04/25/2021 HOCM (hypertrophic obstructive cardiomyopathy) *05/15/2024 Abnormal CXR [R93.89] 05/15/2024 Abscess of left leg [L02.416] 05/15/2024 Leg wound, left, initial encounter [S81.802A] 05/17/2024 Hepatomegaly [R16.0] 07/04/2024 Other ascites [R18.8] 07/04/2024 Abdominal pain [R10.9] 07/04/2024 Leukopenia [D72.819] 07/04/2024 Endocarditis [I38] 07/24/2024 H/O left mastectomy [Z90.12] 07/24/2024 Hx of cervical cancer [Z85.41] 07/12 (more content not included)... Normal [facility] CONSULTon 07-26-2024 CONSULT HNO ID: [id number] Author: TANJA PINA MD Service: Vascular Medicine Author Type: Physician Type: Consults Filed: 07/26/2024 18:39 Note Text: VASCULAR MEDICINE INITIAL CONSULT SERVICE DATE: 07/25/2024 SERVICE TIME: 2:06 PM Requesting Provider: Case Fonseca MD Opinion/advice regarding: AC recommendation for prior h/o VTE CHIEF COMPLAINT: SOB Subjective HPI: 43 year old female with PMH of HCM (s/p ICD in 2006, lead revision 2008, explant/reimplant 10/19/2016), pericarditis, breast cancer at age 18 (s/p lumpectomy and chemotherapy), ovarian cancer s/p oophorectomy, endometrial cancer s/p ablation, DVT/PE 2016 (not currently on anticoagulation), anxiety/depression, PUD, GERD, recent leg abscess recently hospitalized from 05/16/2024 to 05/22/2024 and was treated with IV antibiotic and discharged home on Bactrim. A week after discharge, she started having diffuse abdominal pain with distention associated with nausea, facial swelling. She was seen in [place] ED twice and was discharged home. She was then advised to go to [facility] and was admitted on 07/04/2024. Per GI consult note by Dr. De La Torre on 07/05/2024, she reported having colonoscopy done in December 2019 for and was told that she may have Crohn's disease. Given her persistent symptoms, she was advised to get EGD which was done on 07/06/2024 showing mild erosive antral gastritis with bile reflux. Biopsies were also taken from both stomach and duodenum. She was then transferred to the [facility] Main campus on 07/24/2024 as she was noted to have some lesion around ICD concerning for vegetation/endocarditis. At present, patient is being treated for heart failure exacerbation and also being worked up by ID. Prior VTE history (personal/ family) Per chart review, patient had several presentations to ED due to chest pain for the last 2 years. In 2016, she went to [facility] ED with chest pain and further workup revealed acute PE in the right lower lobe diagnosed on 11/29/2016. She was then discharged on Xarelto. Due to intermittent episodes of severe chest pain, she ended up getting CT chest every month to reevaluate pulmonary artery. She then followed up with Dr. Armstrong (Hem/Onc) who recommeded retirement AC due to uprovoked PE. Xarelto was d/vic in 2021 due to cost issues history breast cancer 1998, treated by lumpectomy, radiation and chemo (sounds like she got AC,although she does not recall exact details), then had uterine cancer treated by ablation, cervical cancer treated by conization, finally ovarian cancer diagnosed in 2006 treated by oophorectomy (unilateral). Known to have BRCA mutation checked while she was in [facility]. FAMILY HISTORY: family history includes Breast Cancer in her mother; Breast Cancer (age of onset: 28) in her sister; Cancer (age of onset: 20) in her sister; Colon Cancer (age of onset: 26) in her sister; DVT in her mother and sister; HOCM in her sister; Heart in her father, mother, paternal aunt, paternal aunt, paternal grandfather, paternal grandmother, and sister; Paternal half-sister in her sister. SOCIAL HISTORY: reports that she has been smoking cigarettes. She started smoking about 42 years ago. She has a 10.6 pack-year smoking history. She has never used smokeless tobacco. She reports that she does not drink alcohol and does not use drugs. MEDICATIONS: Current Facility-Administered Medications Medication Dose Route Frequency metoprolol succinate ER 25 mg tab(s) (TOPROL XL) 25 mg ORAL DAILY senna 8.6 mg tab(s) (SENOKOT) 8.6 mg ORAL BID bisacodyl 10 mg suppository (DULCOLAX) 10 mg RECTAL DAILY PRN melatonin 3 mg tab(s) 3 mg ORAL DAILY (8 PM) polyethylene glycol 3350 17 g packet 17 g ORAL DAILY sodium chloride 0.9 % (flush) 2-10 mL (BD POSIFLUSH) 2-10 mL INTRAVENOUS DIRECTED PRN And perflutren lipid microspheres 1.1 mg/mL 1.3 mL injection (DEFINITY) 1.3 mL INTRAVENOUS DIRECTED PRN ALPRAZolam 0.5 mg tab(s) (XANAX) 0.5 mg ORAL BID zolpidem 10 mg tab(s) (AMBIEN) 10 mg ORAL AT BEDTIME pantoprazole DR 40 mg tab(s) (PROTONIX) 40 mg ORAL BID AC (0600/1600) sucralfate 1 g tab(s) (CARAFATE) 1 g ORAL BID AC heparin iv infusion 25,000 units in NaCl 0.45% 250 mL STROKE NOMOGRAM 0-3,000 Units/hr INTRAVENOUS CONTINUOUS ALLERGIES Allergen Reactions Prozac [Fluoxetine * Other: See Comments suicidal ideations Azithromycin Intolerance [place] Anaphylaxis [place] Anaphylaxis pickles Fish Anaphylaxis Levofloxacin In D5w Swelling, Itching IV site swollen, ceased after d/c, redness and itching at site Neurontin [Gabapent* Mental Status Change Shellfish Anaphylaxis Tigan [Trimethobenz* Anaphylaxis Tolerates benzocaine spray Ultram [Tramadol] Hives Pt states she also pukes a lot Vicodin [Hydrocodon* Shortness of Breath pt states that she is able to take percocet CANCER SCREENING QUESTIONS: Mammogram screening done? Last done: Pap Smear screening done (more content not included)... Normal [facility] CONSULT PROGon 07-26-2024 CONSULT PROG HNO ID: [id number] Author: ROSAMARIA HAJI MD Service: Electrophysiology Author Type: Fellow Type: Consult Progress Note Filed: 07/26/2024 16:28 Note Text: EP Consult Progress Note Patient Synopsis: 43 yo F with HCM s/p ICD (2006, lead revision 2008, explant w/ reimplant 2016), pericarditis, breast cancer s/p lumpectomy + chemotherapy, ovarian cancer s/p oophorectomy, endometrial cancer s/p ablation, DVT/PE (2017), GERD c/b PUD, recent leg abscess 05/2024 s/p IV and PO abx, who presented with ADHF and concern for endocarditis vs residual ...ghost fibrotic strand left behind in the RA to RV that was noted in previous studies MICKI 07/25/24: filamentous echodensity on the RV lead in the right atrium, measuring ~1.4 cm which appears new from MICKI on 2017. Differential includes infectious versus fibrinous material. LVEF 55% (07/24/24) blood cx 07/24/24: NGTD Recommendations today: - cont monitor off of abx - follow blood cx's - per ID Rosamaria Haji MD Fellow Cardiac Electrophysiology and Pacing Temp (24hrs), Av.6 ?C (97.9 ?F), Min:36.4 ?C (97.5 ?F), Max:36.8 ?C (98.2 ?F) LV Ejection Fraction (%) Date Value 07/25/2024 50 Recent Labs 07/26/24 0206 07/25/24 0653 WBC 15.07* 21.49* HB 16.3* 16.0* HCT 50.7* 50.1* PLT 344 386 NA 136 135* K 4.5 5.2* CO2 24 27 BUN 29* 31* CREAT 1.02* 1.10* GLUC 98 81 MG 2.3 2.5* Lab Results Component Value Date APTT 94.8 (H) 07/26/2024 APTT 64.9 (H) 07/26/2024 APTT 48.6 (H) 07/25/2024 INR 1.1 05/15/2024 INR 1.1 02/18/2017 INR 1.10 01/15/2017 ABO/RH(D) Date Value Ref Range Status 10/26/2016 A POSITIVE Final Antibody Screen Date Value Ref Range Status 07/24/2024 Negative Final Type and Screen Expiration Date Value Ref Range Status 07/24/2024 07/27/2024 23:59 Final Current Anticoagulants AND Antiplatelets (From admission, onward) Start Stop Route Frequency Ordered 07/24/24 1500 heparin iv infusion 25,000 units in NaCl 0.45% 250 mL STROKE NOMOGRAM -- INTRAVENOUS CONTINUOUS 07/24/24 1449 IV medications: heparin: Last Rate: 900 Units/hr (07/26/24 1614) Lines, Drains, and Airways Line Duration Peripheral 07/24/24 External Facility Short Right Forearm 20 Gauge 2 days Culture Results - Past 1 Year Culture Smear Result 05/15/2024 No growth 5 days -- 05/15/2024 Rare Gram positive cocci Many Polymorphonuclear leukocytes 05/15/2024 No growth 5 days -- 07/24/2024 No growth 2 days P No growth 2 days P P Preliminary result Susceptibility Tests - Past 1 Year No results found for the last 365 days. Normal [facility] CONSULT PROG HNO ID: [id number] Author: DIANA MCPHERSON MD Service: Infectious Disease Author Type: Physician Type: Consult Progress Note Filed: 07/26/2024 15:48 Note Text: INFECTIOUS DISEASE CONSULT PROGRESS NOTE Date: 07/26/2024 Patient Name: Michelle Mitchell HISTORY: Reports headache, ongoing chest pain Abdom pain resolved after bm Wbc improving Blood cx ngtd no fevers Medications: reviewed EXAMINATION: BP 124/67 Pulse 78 Temp 36.8 ?C (98.2 ?F) (Oral) Resp 18 Wt 56.9 kg (125 lb 7.1 oz) LMP 06/12/2006 SpO2 99% BMI 21.53 kg/m? General: appears in pain, ambulatory Eyes: anicteric, pink conjunctivae Mouth: no oral lesions Respiratory: clear to auscultation Cardiovascular:normal rate and rhythm, R icd pocket clean GI:abdomen soft MSK:no joint swelling, L lower leg healed abscess Skin:no rash Neuro: alert, oriented Lab, Microbiology and Imaging data: Independently reviewed and analyzed. ASSESSMENT: 43 year old with history of HCM s/p ICD in 2006, lead revision 2008, explant/reimplant for lead malfunction 2016), pericarditis, breast cancer s/p lumpectomy and chemotherapy, ovarian cancer s/p oophorectomy, endometrial cancer, DVT/PE 2017, recent leg abscess who presents with abdominal pain of unclear etiology for past 3-4 weeks. Imaging is apparently unrevealing on abdominal pathology, though she did have leukocytosis at OSH. TTE showed mobile echodensity in RA. MICKI showed thin filamentous density on RV lead in RA - on review it is felt to be fibrous material leftover from the previous device extraction in 2017. Her other sx of pain are not directly attributable to this vegetation, no other clear evidence of infection at this time RECOMMENDATIONS: Continue to monitor off antibiotics Following blood cx, ng1d Note possible dc tomorrow I personally monitored for antibiotic therapeutic and adverse effects/toxicity. Case discussed with primary team. Signature: Daina Mcpherson MD Pager: [phone] Normal [facility] LUNG DIFFUSION CAPACITY (CARMEN O)on 07-26-2024 LUNG DIFFUSION CAPACITY (DLCO) [facility] [address] [place] [address] Test Date: 2024-07-26 Pat Name: MICHELLE MITCHELL Department: Room: [place] [address] Gender: Female Claim Inspector: : 1980 Requested By: Order Number: [id number] Pete MD: Dex Ch MD Interpretive Statements Current ATS/ERS acceptability and repeatability standards for spirometry met. Start of test and EOFE criteria met. Current ATS/ERS acceptability and repeatability standards for DLCO met with 2 acceptable maneuvers. DLCO is hemoglobin corrected. Hemoglobin obtained from [facility] on 07/26/2024.//KJ IMPRESSION: Spirometry indicates mild obstruction. The diffusing capacity corrected for hemoglobin is normal. Electronically Signed On 07-26-2024 11:31:34 EDT by Dex Ch MD ID: [id number] Name: MICHELLE MITCHELL Race: White Ht: 63.15 in Wt: 125.44 lbs Age: 43 Gender: Female : 1980 Dx: Preoperative testing_ Smoking Hx: Non-smoker Doctor: Test Date: 07/26/2024 Site: Tech: Amada Odom PRE-BRONCH POST-BRONCH Leslie LLN Pred ULN %Pred ZScore Leslie %Pred %Chg ZScore SPIROMETRY FVC 2.98 2.44 3.23 4.04 92 -0.52 FEV1 1.99 2.00 2.67 3.31 74 -1.67 FEV1/FVC 0.67 0.71 0.82 0.91 81 -2.17 FEFMax 5.11 5.09 6.75 8.42 75 -1.62 FEF50 1.52 2.03 3.64 5.24 41 -2.16 FIF50 4.29 FEF50/FIF50 0.36 90-100 FIVC 2.81 [id number] 1.16 1.71 2.91 4.40 39 -2.58 ExpiredTime 5.87 TimeToFEFMax 0.08 DAVEY 0.05 VolExtrap% 2 LUNG DIFFUSION DLCOunc 18.49 16.79 22.96 29.13 80 -1.19 DLCOStdPB 18.22 16.79 22.96 29.13 79 -1.26 DLCORefHb 18.22 24.78 73 VA 4.39 3.82 4.92 6.03 89 -0.80 Kco 3.91 3.47 4.41 5.48 88 -0.86 Hgb 16.30 12-18 Comments: Current ATS/ERS acceptability and repeatability standards for spirometry met. Start of test and EOFE criteria met. Current ATS/ERS acceptability and repeatability standards for DLCO met with 2 acceptable maneuvers. DLCO is hemoglobin corrected. Hemoglobin obtained from [facility] on 07/26/2024.//KJ FVC_PRE (L) : 2.98 L FVC_PRED (L) : 3.23 L FVC_LLN (L) : 2.44 L FVC_ULN (L) : 4.04 L FEV1_PRE (L) : 1.99 L FEV1_PRED (L) : 2.67 L FEV1_LLN (L) : 2.00 L FEV1_ULN (L) : 3.31 L FEV1/FVC_PRE (%) : 67 % FEV1/FVC_PRED (%) : 82 % FEV1/FVC_LLN (%) : 71 % OUX66_KHW (L/S) : 3.39 L/S JYA16_KSE (L/S) : 0.45 L/S TUW63_HQJX (L/S) : 1.04 L/S YHT49_HKJ (L/S) : 0.48 L/S KAM47_HAO (L/S) : 2.06 L/S PGB25-07%_PRE (L/S) : 1.16 L/S GUK72-91%_PRED (L/S) : 2.91 L/S KMQ50-61%_LLN (L/S) : 1.71 L/S PEF_PRE (L/S) : 5.11 L/S PEFMAX_LLN (L/S) : 5.09 L/S PEFMAX_ULN (L/S) : 8.42 L/S SVC_PRED (L) : 3.23 L/S SVC_LLN (L) : 2.44 L/S SVC_ULN (L/S) : 4.04 L/S IC_PRED (L) : 2.15 L/S ERV_PREDICTED (L) : 1.08 L/S DLCO (ML/MIN/MMHG) : 18.49 ml/min/mmHg DLCO_PRED (ML/MIN/MMHG) : 22.96 ml/min/mmHg DLCO_LLN(ML/MIN/MMHG) : 16.79 ml/min/mmHg DLCO_ULN (ML/MIN/MMHG) : 29.13 ml/min/mmHg FET_PRE (S) : 5.87 S VA (L) : 4.39 L VA_PRD (L) : 4.92 L DLCO/VA (ML/MIN/MMHG/L) : 0.04 ml/min/mmHg/L DLCO_VA_PRED (L) : 0.05 ml/min/mmHg/L DLCOCOR (ML/MIN/MMHG) : 17.13 ml/min/mmHg DLCOCOR_PRED (ML/MIN/MMHG) : 22.96 ml/min/mmHg DLCO/VACOR (ML/MIN/MMHG/L) : 0.04 ml/min/mmHg/L Normal [facility] Magnesium SerPl-mCncon 07-26 Magnesium [Mass/Vol] 2.3 mg/dL Normal 1.7-2.3 [facility] Comment on above: Order Comment: Speci men Type: BLOOD SPECIMEN Ordering Facility: [facility] Address: [address] [place] [address] Performed By: #### 2 4321-2, #### [facility] CLIA [id number] [address] [place] [address] [place] PTT, ANTICOAGULANT THERAPYon 07-26-2024 aPTT Coag (PPP) [Time] 26.1 s Normal 23.0-32.4 [facility] Comment on above: Order Comment: Speci men Type: BLOOD SPECIMENOrdering Facility: [facility] Address: [address] [place] [address] Performed By: #### P TTA ####[facility] [id number] [address] [place] aPTT Coag (PPP) [Time] 94.8 s High 23.0-32.4 [facility] Comment on above: Order Comment: Speci men Type: BLOOD SPECIMEN Ordering Facility: [facility] Address: [address] [place] [address] Performed By: #### 2 4321-2, #### [facility] CLIA [id number] [address] [address] [place] aPTT Coag (PPP) [Time] 64.9 s High 23.0-32.4 Cl [facility] Comment on above: Order Comment: Speci men Type: BLOOD SPECIMENOrdering Facility: [facility] Address: [address] [place] [address] Performed By: #### P TTAC ####[facility] [id number] [facility] [place] [address] [place] SPIROMETRY BASELINE ONLYon 0 07-26-2024 SPIROMETRY BASELINE ONLY [facility] [address] [place] [address] Test Date: 2024-07-26 Pat Name: MICHELLE MITCHELL Department: Room: [place] [address] Gender: Female Claim Inspector: : 1980 Requested By: Order Number: [id number] Reading MD: Dex Ch MD Interpretive Statements Current ATS/ERS acceptability and repeatability standards for spirometry met. Start of test and EOFE criteria met. Current ATS/ERS acceptability and repeatability standards for DLCO met with 2 acceptable maneuvers. DLCO is hemoglobin corrected. Hemoglobin obtained from [facility] on 07/26/2024.//KJ IMPRESSION: Spirometry indicates mild obstruction. The diffusing capacity corrected for hemoglobin is normal. Electronically Signed On 07-26-2024 11:31:34 EDT by Dex Ch MD ID: [id number] Name: RAUL MITCHELLAL Angelo Race: White Ht: 63.15 in Wt: 125.44 lbs Age: 43 Gender: Female : 1980 Dx: Preoperative testing_ Smoking Hx: Non-smoker Doctor: Test Date: 07/26/2024 Site: Tech: Amada Odom PRE-BRONCH POST-BRONCH Leslie LLN Pred ULN %Pred ZScore Leslie %Pred %Chg ZScore SPIROMETRY FVC 2.98 2.44 3.23 4.04 92 -0.52 FEV1 1.99 2.00 2.67 3.31 74 -1.67 FEV1/FVC 0.67 0.71 0.82 0.91 81 -2.17 FEFMax 5.11 5.09 6.75 8.42 75 -1.62 FEF50 1.52 2.03 3.64 5.24 41 -2.16 FIF50 4.29 FEF50/FIF50 0.36 90-100 FIVC 2.81 AUQ82-61 1.16 1.71 2.91 4.40 39 -2.58 ExpiredTime 5.87 TimeToFEFMax 0.08 DAVEY 0.05 VolExtrap% 2 LUNG DIFFUSION DLCOunc 18.49 16.79 22.96 29.13 80 -1.19 DLCOStdPB 18.22 16.79 22.96 29.13 79 -1.26 DLCORefHb 18.22 24.78 73 VA 4.39 3.82 4.92 6.03 89 -0.80 Kco 3.91 3.47 4.41 5.48 88 -0.86 Hgb 16.30 12-18 Comments: Current ATS/ERS acceptability and repeatability standards for spirometry met. Start of test and EOFE criteria met. Current ATS/ERS acceptability and repeatability standards for DLCO met with 2 acceptable maneuvers. DLCO is hemoglobin corrected. Hemoglobin obtained from [facility] on 07/26/2024.//KJ Normal [facility] Basic metabolic 2000 panelon 07-25-2024 Anion gap [Moles/Vol] 11 mmol/L Normal 8-15 [facility] Comment on above: Order Comment: Speci men Type: BLOOD SPECIMEN Ordering Facility: [facility] Address: [address] [place] [address] Performed By: #### 2 4321-2, 17496-3 #### [facility] CLIA [id number] [address] [place] [address] [place] Calcium [Mass/Vol] 9.8 mg/dL Normal 8.5-10.2 [facility] Comment on above: Order Comment: Speci men Type: BLOOD SPECIMEN Ordering Facility: [facility] Address: [address] [place] [address] Performed By: #### 2 4321-2, #### [facility] CLIA [id number] [address] [place], [place] [address] [place] Chloride [Moles/Vol] 97 mmol/L Low 98-107 [facility] Comment on above: Order Comment: Speci men Type: BLOOD SPECIMEN Ordering Facility: [facility] Address: [address] [place] [address] Performed By: #### 2 432-2, #### [facility] CLIA [id number] [address] [place], [place] [address] [place] CO2 [Moles/Vol] 27 mmol/L Normal 22-30 [facility] Comment on above: Order Comment: Speci men Type: BLOOD SPECIMEN Ordering Facility: [facility] Address: [address] [place] [address] Performed By: #### 2 4322, #### [facility] CLIA [id number] [address] [place] [address] [place] Creatinine [Mass/Vol] 1.10 mg/dL High 0.58-0.96 [facility] Comment on above: Order Comment: Speci men Type: BLOOD SPECIMEN Ordering Facility: [facility] Address: [address] [place] [address] Performed By: #### 2 432-2, #### [facility] CLIA [id number] [address] [place], [place] [address] [place] Creatinine and Glomerular filtration rate.predicted panel (S/P/Bld) 64 mL/min/1.73m??? Normal >=60 [facility] Comment on above: Order Comment: Speci men Type: BLOOD SPECIMEN Ordering Facility: [facility] Address: [address] [place] [address] Result Comment: Sandie mated Glomerular Filtration Rate (eGFR) is calculated using the 2020 CKD-EPI creatinine equation. This equation utilizes serum creatinine, sex, and age as parameters. The creatinine assay has traceable calibration to isotope dilution-mass spectrometry. Refer to KDIGO guidelines for clinical interpretation. In patients with unstable renal function, e.g. those with acute kidney injury, the eGFR may not accurately reflect actual GFR. Performed By: #### 2 4320-04, #### [facility] CLIA [id number] [address] [place] [address] [place] Glucose [Mass/Vol] 81 mg/dL Normal 74-99 [facility] Comment on above: Order Comment: David horton Type: BLOOD SPECIMEN Ordering Facility: [facility] Address: [address] [place] [address] Result Comment: The [place] Diabetes Association (ADA) provides guidance for cutoff values for fasting glucose and random glucose. The ADA defines fasting as no caloric intake for at least 8 hours. Fasting plasma glucose results between 100 to 125 mg/dL indicate increased risk for diabetes (prediabetes). Fasting plasma glucose results greater than or equal to 126 mg/dL meet the criteria for diagnosis of diabetes. In the absence of unequivocal hyperglycemia, results should be confirmed by repeat testing. In a patient with classic symptoms of hyperglycemia or hyperglycemic crisis, random plasma glucose results greater than or equal to 200 mg/dL meet the criteria for diagnosis of diabetes. Reference: Standards of Medical Care in Diabetes 2016, [place] Diabetes Association. Diabetes Care. 2016.39(Suppl 1). Performed By: #### 2 4320-04, #### [facility] CLIA [id number] [address] [place], [place] [address] [place] Potassium [Moles/Vol] 5.2 mmol/L High 3.7-5.1 [facility] Comment on above: Order Comment: David horton Type: BLOOD SPECIMEN Ordering Facility: [facility] Address: [address] [place] [address] Performed By: #### 2 4320-04, #### [facility] CLIA [id number] [address] [place] [id number] [place] Sodium [Moles/Vol] 135 mmol/L Low 136-144 [facility] Comment on above: Order Comment: Speci men Type: BLOOD SPECIMEN Ordering Facility: [facility] Address: [address] [place] [address] Performed By: #### 2 4321-2, #### [facility] CLIA [id number] [address] [place] [address] [place] Urea nitrogen [Mass/Vol] 31 mg/dL High 7-21 [facility] Comment on above: Order Comment: Speci men Type: BLOOD SPECIMEN Ordering Facility: [facility] Address: [address] [place] [address] Performed By: #### 2 4321-2, #### [facility] CLIA [id number] [address] [place] [address] [place] CBC panel Auto (Bld)on 07-25 Erythrocyte distribution width (RBC) [Ratio] 14.0 % Normal 11.5-15.0 [facility] Comment on above: Order Comment: Speci men Type: BLOOD SPECIMENOrdering Facility: [facility] Address: [address] [place] [address] Performed By: #### 5 8410-2 ####[facility] [id number] [place] [address] [place] Hematocrit (Bld) [Volume fraction] 50.1 % High 36.0-46.0 [facility] Comment on above: Order Comment: Speci men Type: BLOOD SPECIMENOrdering Facility: [facility] Address: [address] [place] [address] Performed By: #### 5 8410-2 ####[facility] [id number] [place] [id number] [place] Hemoglobin (Bld) [Mass/Vol] 16.0 g/dL High 11.5-15.5 [facility] Comment on above: Order Comment: Speci men Type: BLOOD SPECIMENOrdering Facility: [facility] Address: [address] [place] [address] Performed By: #### 5 8410-2 ####[facility] [id number] [place] [address] [place] MCH (RBC) [Entitic mass] 31.1 pg Normal 26.0-34.0 [facility] Comment on above: Order Comment: Speci men Type: BLOOD SPECIMENOrdering Facility: [facility] Address: [address] [place] [address] Performed By: #### 5 8410-2 ####[facility] [id number] [place] [address] [place] MCHC (RBC) [Mass/Vol] 31.9 g/dL Normal 30.5-36.0 [facility] Comment on above: Order Comment: Speci men Type: BLOOD SPECIMENOrdering Facility: [facility] Address: [address] [place] [address] Performed By: #### 5 8410-2 ####[facility] [id number] [place] [address] [place] MCV (RBC) [Entitic vol] 97.5 fL Normal 80.0-100.0 [facility] Comment on above: Order Comment: Speci men Type: BLOOD SPECIMENOrdering Facility: [facility] Address: [address] [place] [address] Performed By: #### 5 8410-2 ####[facility] [id number] [place] [id number] [place] Nucleated RBC (Bld) [#/Vol] 10*3/uL Normal <0.01 [facility] Comment on above: Order Comment: Speci men Type: BLOOD SPECIMENOrdering Facility: [facility] Address: [address] [place] [address] Performed By: #### 5 8410-2 ####[facility] [id number] [address] [address] [place] Platelet mean volume (Bld) [Entitic vol] 10.4 fL Normal 9.0-12.7 [facility] Comment on above: Order Comment: Speci men Type: BLOOD SPECIMENOrdering Facility: [facility] Address: [address] [place] [address] Performed By: #### 5 8410-2 ####[facility] [id number] [place] [address] [place] Platelets (Bld) [#/Vol] 386 10*3/uL Normal 150-400 [facility] Comment on above: Order Comment: Speci men Type: BLOOD SPECIMENOrdering Facility: [facility] Address: [address] [place] [address] Performed By: #### 5 8410-2 ####[facility] [id number] [place] [address] [place] RBC (Bld) [#/Vol] 5.14 10*6/uL Normal 3.90-5.20 [facility] Comment on above: Order Comment: Speci men Type: BLOOD SPECIMENOrdering Facility: [facility] Address: [address] [place] [address] Performed By: #### 5 8410-2 ####[facility] [id number] [place] [address] [place] WBC (Bld) [#/Vol] 21.49 10*3/uL High 3.70-11.00 [facility] Comment on above: Order Comment: Speci men Type: BLOOD SPECIMENOrdering Facility: [facility] Address: [address] [place] [address] Performed By: #### 5 8410-2 ####[facility] [id number] [place] [id number] [place] CNOVon 07-25-2024 CNOV Office Visit (CAFLMN ) -------- MICHELLE MITCHELL ([id number]) 1980 F Date Time Provider Department 07/25/24 2:00 PM IP TRANSESOPHAGEAL ECHO CAFLMN During your visit today, we recorded the following information about you: Temperature Pulse Respiration Blood pressure 98.2 degrees 61/minute 18/minute 110/57 Dominguez Obregon RN 07/25/2024 4:49 PM Signed ..AMBULATORY PATIENT EDUCATION TOPIC: SURVIVAL SKILLS: MICKI READINESS TO LEARN COGNITIVE ABILITY: Alert and oriented MOTIVATION TO LEARN: Eager Interested FAMILY SUPPORT: None - Unavailable/disintereste d INSTRUCTION PROVIDED TO: Patient PATIENT LEARNS BEST BY: Individual Instruction Verbal Instruction FACTORS AFFECTING LEARNING: None PHYSICAL LIMITATIONS AFFECTING LEARNING: None LEARNING RESPONSE DIAGNOSIS: R/O IE METHOD OF INSTRUCTION: Individual instruction Verbal instruction PATIENT / FAMILY RESPONSE: Verbalizes understanding of: POST-OPERATIVE INSTRUCTIONS-Correct actions to take to reduce postoperative complications PRE-PROCEDURE INSTRUCTIONS-Correct action to take to follow pre-procedure instructions FOLLOW-UP PLAN: Complete - No need for follow-up SUPPLEMENTAL MATERIAL: None REFERRAL (RECOMMENDATION): None Electronically Signed By Dominguez Obregon RN In Department: CARDIOLOGY Referring Provider: TEJAL RODRÍGUEZ [[id number]] Allergies As of Date: 07/25/2024 Noted Allergy Reaction PROZAC (FLUOXETINE HCL) 11/07/2013 14 - Other: See Comments Comments: suicidal ideations AZITHROMYCIN 10/19/2006 5 - Intolerance CUCUMBER 09/02/2010 10 - Anaphylaxis CUCUMBER 05/15/2024 10 - Anaphylaxis Comments: pickles FISH 08/20/2013 10 - Anaphylaxis LEVOFLOXACIN IN D5W 04/05/2013 7 - Swelling 9 - Itching Comments: IV site swollen, ceased after d/c, redness and itching at site NEURONTIN (GABAPENTIN) 05/17/2011 1 - Mental Status Change SHELLFISH 08/20/2013 10 - Anaphylaxis TIGAN (TRIMETHOBENZAMIDE-BENZO JOHN*09/22/2012 10 - Anaphylaxis Comments: Tolerates benzocaine spray ULTRAM (TRAMADOL) 12/08/2014 4 - Hives Comments: Pt states she also pukes a lot VICODIN (HYDROCODONE-ACETAMINOPH E*01/30/2007 12 - Shortness of Breath Comments: pt states that she is able to take percocet Date Reviewed: 07/25/2024 Reviewed by: Huan Kahn RN - Fully Assessed Primary Visit Diagnosis:History of transesophageal echocardiography (MICKI) [Z92.89] Order(s):[] benzocaine 20% (TOPEX)Disp: Rfl: [] lidocaine urojet 2 % topical gel (GLYDO)Disp: Rfl: [] midazolam (PF) injection (VERSED)Disp: Rfl: [] fentaNYL 50 mcg/mL injection (SUBLIMAZE)Disp: Rfl: Prescriptions as of 07/25/2024 - dicyclomine (BENTYL) 10 mg capsule Take 1 capsule by mouth three times a day before meals. - pantoprazole DR (PROTONIX) 40 mg tablet Take 1 tablet by mouth two times a day before meals at 6 am and 4 pm. - sucralfate (CARAFATE) 1 gram tablet Take 1 tablet by mouth two times a day before meals. - psyllium (METAMUCIL) 3.4 gram packet Take 1 packet by mouth two times a day. - vortioxetine (TRINTELLIX) 10 mg tablet Take 10 mg by mouth once daily. - albuterol HFA (VENTOLIN HFA) 90 mcg/actuation inhaler Inhale 2 Puffs as instructed every 4 hours as needed for wheezing/shortness of breath. - ALPRAZolam (XANAX) 0.5 mg tablet Take 0.5 mg by mouth twice daily. - zolpidem (AMBIEN) 10 mg Tab Take 10 mg by mouth daily at bedtime. Facility-Administered Medications as of 07/25/2024 - senna 8.6 mg tab(s) (SENOKOT) - bisacodyl 10 mg suppository (DULCOLAX) - melatonin 3 mg tab(s) - polyethylene glycol 3350 17 g packet - sodium chloride 0.9 % (flush) 2-10 mL (BD POSIFLUSH) - perflutren lipid microspheres 1.1 mg/mL 1.3 mL injection (DEFINITY) - ALPRAZolam 0.5 mg tab(s) (XANAX) - zolpidem 10 mg tab(s) (AMBIEN) - pantoprazole DR 40 mg tab(s) (PROTONIX) - sucralfate 1 g tab(s) (CARAFATE) - heparin iv infusion 25,000 units in NaCl 0.45% 250 mL STROKE NOMOGRAM Problem List As Of Date 07/25/2024 Noted Resolved ICD (implantable cardioverter-defibrillat or), s*10/24/2006 Unspecified asthma, with status asthmaticus [J4* 05/23/2014 Leukocytosis [D72.829] 03/21/2010 Atypical chest pain [R07.89] 03/21/2010 Gastric ulcer [K25.9] 08/30/2010 Nausea [R11.0] 12/05/2011 06/17/2014 Cardiomyopathy, hypertrophic nonobstructive (HC*12/05/2011 Pneumonia [J18.9] 04/14/2013 05/23/2014 Near syncope [R55] 06/27/2013 05/23/2014 Pain, joint, ankle, right [M25.571] 10/03/2013 05/23/2014 Achilles tendinitis [M76.60] 10/31/2013 05/23/2014 Depression [F32.A] 11/06/2013 05/23/2014 Syncope and collapse [R55] 11/07/2013 05/23/2014 Orthostatic hypotension [I95.1] 11/07/2013 05/23/2014 Hypokalemia not associated with diuretics [E87.*11/07/2013 Generalized abdominal pain [R10.84] 12/13/2013 Neuropathic pain [M79.2] 06/17/2014 SUMMARY 12/07/2014 RLQ abdominal pain [R10.31] (more content not included)... Normal [facility] CONSULTon 07-25-2024 CONSULT HNO ID: [id number] Author: RADU RIVERS MD Service: Cardiovascular Medicine Author Type: Physician Type: Consults Filed: 07/26/2024 14:13 Note Text: [facility]ARDI[facility]ULAR [facility]ICINE CONSULT NOTE NAME: Michelle Mitchell ADMIT DAY: 07/24/2024 CONSULT DAY: 07/25/24 PRIMARY SERVICE: [facility] - Imaging REASON FOR CONSULT: Infected ICD Lead HPI 43 year-old woman with a history of HCM s/p ICD (2006, lead revision 2008, explant w/ reimplant 2016), pericarditis, breast cancer s/p lumpectomy + chemotherapy, ovarian cancer s/p oophorectomy, endometrial cancer s/p ablation, DVT/PE (2016), GERD c/b PUD, recent leg abscess 05/2024 s/p IV and PO abx, who presented with ADHF and concern for endocarditis. TTE yesterday noted a mobile echodensity attached to the interatrial septum vs ICD lead. EP is consulted for management of infected device. History obtained from: Chart review, Patient and Old records ROS: ALL other systems reviewed and negative other than HPI. Subjective PAST MEDICAL HISTORY Diagnosis Date Breast cancer (HCC) Age 17 treated with radiation, lumpectomy and masectomy CIS (carcinoma in situ of cervix) Colon polyp 07/2015 Congestive heart failure (HCC) HOCM DVT (deep venous thrombosis) (HCC) Endometrial cancer (HCC) treated with ablation Gastroesophageal reflux disease 08/17/2017 GERD (gastroesophageal reflux disease) Hypertr obst cardiomyop ICD (implantable cardiac defibrillator) battery depletion Kidney stone Migraine Ovarian epithelial cancer (HCC) This diagnosis unlikely as both ovaries present 05/09/2018 laparoscopy Pericarditis (HCC) PUD (peptic ulcer disease) Pulmonary embolism (HCC) 11/2016 Vaginal Pap smear with ASC-US 12/2016 PAST SURGICAL HISTORY Procedure Laterality Date ANES PERMANENT TRANSVENOUS PACEMAKER INSERTION Apr. 2006 ICD implant, [facility] ANESTHESIA TUBAL LIGATION/TRANSECTION APPENDECTOMY 05/05/2014 , lap BREAST LUMPECTOMY HX Left 1997 with radiation CHOLECYSTECTOMY HX 08/2010 lap COLONOSCOPY AND POLYPECTOMY 08/07/2015 CONIZATION CERVIX W/WO DANDC RPR KNIFE/LASER CIS EGD 08/25/2017 Tabbaa- normal ENDOMETRIAL ABLATION WITH US GUIDANCE for abnormal uterine bleeding EXCISION OF CYST 08/23/2017 Dr. Velasco Excision of sebaceous cyst IMPLANTABLE CARDIAC DEFIB ICD 02/2009, 10/19/2016 LAPAROSCOPY DIAGNOSTIC 07/21/2015 Lysis of adhesions, MIDLINE INSERTION/CONSULT 01/18/2017 PAST SURGICAL HISTORY OF 05/24/2014 Laparoscopy, FAMILY HISTORY Problem Relation Age of Onset Heart Mother heart valve replaced, was in a car accident in early age Breast Cancer Mother dx age 50 DVT Mother Heart Father IHSS, CHF, HOCM other (Paternal half-sister) Sister Paternal half-sister; on transplant list other (HOCM) Sister Heart Paternal Grandmother stroke, at age 43 Heart Paternal Grandfather at age 45 Heart Paternal Aunt at age 27 Heart Paternal Aunt at age 29 Cancer Sister 20 Brain Breast Cancer Sister 28 Colon Cancer Sister 26 DVT Sister Heart Sister Reported HOCM, heart transplant at 34 Social History Tobacco Use Smoking status: Every Day Current packs/day: 0.25 Average packs/day: 0.3 packs/day for 42.4 years (10.6 ttl pk-yrs) Types: Cigarettes Start date: 03/14/1982 Smokeless tobacco: Never Tobacco comments: since age 12 yrs Vaping Use Vaping status: Never Used Substance Use Topics Alcohol use: No Drug use: No Prior to Admission Medications: dicyclomine (BENTYL) 10 mg capsuleTake 1 capsule by mouth three times a day before meals.Disp: 90 capsuleRfl: [address] (PROTONIX) 40 mg tabletTake 1 tablet by mouth two times a day before meals at 6 am and 4 pm.Disp: 60 tabletRfl: 2 sucralfate (CARAFATE) 1 gram tabletTake 1 tablet by mouth two times a day before meals.Disp: 180 tabletRfl: 0 vortioxetine (TRINTELLIX) 10 mg tabletTake 10 mg by mouth once daily.Disp: Rfl: ALPRAZolam (XANAX) 0.5 mg tabletTake 0.5 mg by mouth twice daily.Disp: Rfl: zolpidem (AMBIEN) 10 mg TabTake 10 mg by mouth daily at bedtime.Disp: Rfl: psyllium (METAMUCIL) 3.4 gram packetTake 1 packet by mouth two times a day.Disp: 60 packetRfl: 5 albuterol HFA (VENTOLIN HFA) 90 mcg/actuation inhalerInhale 2 Puffs as instructed every 4 hours as needed for wheezing/shortness of breath.Disp: Rfl: ALLERGIES Allergen Reactions Prozac [Fluoxetine * Other: See Comments suicidal ideations Ativan [Lorazepam] Vomiting Azithromycin Intolerance [place] Anaphylaxis [place] Anaphylaxis pickles Fish Anaphylaxis Levofloxacin In D5w Swelling, Itching IV site swollen, ceased after d/c, redness and itching at site Neurontin [Gabapent* Mental Status Change Shellfish Anaphylaxis Tigan [Trimethobenz* Anaphylaxis Ultram [Tramadol] Hives Pt states she also pukes a lot Vicod (more content not included)... Normal [facility] ECG COMPLETEon 07-25-2024 ECG COMPLETE Ventricular Rate : 6 6 BPM Atrial Rate : 66 BPM P-R Interval : 156 ms QRS Duration : 86 ms Q-T Interval : 414 ms QTC Calculation(Bazett) : 434 ms Calculated P [place] : 18 degrees Calculated R [place] : -73 degrees Calculated T [place] : 73 degrees NORMAL SINUS RHYTHM BIATRIAL ENLARGEMENT LEFT ANTERIOR FASCICULAR BLOCK LEFT VENTRICULAR HYPERTROPHY ( Sunny product , Romhilt-Sheets ) ST & LATERAL T WAVE ABNORMALITY ABNORMAL ECG Confirmed by HIPOLITO DAVIS MD ([id number]) on 08/18/2024 10:33:24 PM NAME : MICHELLE MITCHELL PID : [id number] : 1980 Gender : Female Race : ORD : [id number] Procedure Date : Jul 25 2024 09:39:38 Edit Date : Aug 18 2024 22:33:30 Diagnosis: NORMAL SINUS RHYTHM BIATRIAL ENLARGEMENT LEFT ANTERIOR FASCICULAR BLOCK LEFT VENTRICULAR HYPERTROPHY ( Williamson product , Romhilt-Sheets ) ST & LATERAL T WAVE ABNORMALITY ABNORMAL ECG Confirmed by HIPOLITO DAVIS MD ([id number]) on 08/18/2024 10:33:24 PM Test Reason : Chest Pain Location : 353 : J53 J053-11 Overread By : HIPOLITO DAVIS MD Edited By : HIPOLITO DAVIS MD Referred By : MERCY BISHOP Acquired by : INGRID ANGELA Normal [facility] ECHO TRANSESOPHAGEALon 07-25 ECHO TRANSESOPHAGEAL Echocardiography Re port: Transesophageal Echo [facility] J1-5 Date of service: 07/25/2024 3:16:24 PM OPERATIONS ENGINEER Ordering physician: TEJAL RODRÍGUEZ 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 device Technologist: fellow Fellow: Polo Mayfield MD Interpreting physician: Uriel Brown MD PATIENT: Name: MRS. MICHELLE MITCHELL : 1980 Age: 43 years Gender: F Height: 162.60 cm BSA: 1.65 m Weight: 60.20 kg BMI: 22.8 kg/m Pre Post Heart rate 63 bpm 61 bpm Blood pressure 131/74 mmHg 116/64 mmHg O2 saturation 97 % 96 % Color Doppler was utilized to interrogate the cardiac valves assessed and spectral Doppler was utilized to determine the flow velocities and pressure gradients reported in this exam. Medications Total Dose Versed 7.00 mg Fentanyl 175.00 mcg Agitated Saline 10.00 ml Exam performed under moderate sedation with continuous ECG, pulse oximetry and cardiopulmonary monitoring by nursing, overseen by the performing physician(s), for an intraservice time of 21 min. (Stop Time: 4:16) No specimens collected. No blood loss. The interpreting physician was present for and actively participated in the MICKI procedure. MEASUREMENTS: Value Normal Ejection Fraction 50 % (visual est.) EF > 54 FINDINGS: LEFT VENTRICLE The left ventricle is normal in size. There is left ventricular hypertrophy. Left ventricular systolic function is mildly decreased. RIGHT VENTRICLE The right ventricle is normal in size. Pacer wires are noted in the right ventricle. Right ventricular systolic function is normal. LEFT ATRIUM There is no left atrial appendage thrombus. Pulmonary Veins: The pulmonary venous pattern showed normal systolic flow. MITRAL VALVE There is trace mitral valve regurgitation. 3D echocardiographic multi-planar reconstruction of the mitral valve was performed to assess anatomy and function. TRICUSPID VALVE There is mild (1+) tricuspid valve regurgitation. 3D echocardiographic multi-planar reconstruction of the tricuspid valve was performed to assess anatomy and function. AORTIC VALVE There is no aortic valve regurgitation. 3D echocardiographic multi-planar reconstruction of the aortic valve was performed to assess anatomy and function. PULMONIC VALVE There is no pulmonic valve regurgitation. INTERATRIAL SEPTUM There is no evidence of intracardiac shunting as detected by Doppler and agitated saline contrast. CONCLUSIONS: - Exam indication: ?Endocarditis intracardiac device - The left ventricle is normal in size. There is left ventricular hypertrophy. Left ventricular systolic function is mildly decreased. EF = 50 5% (visual est.) - The right ventricle is normal in size. Right ventricular systolic function is normal. - Single lead ICD. There is a thin, filamentous echodensity on the RV lead in the right atrium, measuring ~1.4 cm which appears new from MICKI on 2017. Differential includes infectious versus fibrinous material. - Partially calcified mobile echodensity attached to the superior portion of the interatrial septum (close to SVC/RA junction) appears somewhat similar to MICKI from 2017 and likely represents fibrinous sheath from the prior lead extraction. - No evidence of endocarditis on the valves. - Transgastric views not obtained due to recent history of erosive gastritis. - Exam was compared with the prior echocardiographic exam performed on 07/24/24. Mobile echodensities on the ICD lead seen on today's study. * * * Final * * * [employer] [facility] : [id number] Normal [facility] HIGH SENSITIVITY TROPONIN To n 07-25-2024 Troponin T.cardiac High sensitivity method [Mass/Vol] 48 ng/L High <12 [facility] Comment on above: Order Comment: Speci men Type: BLOOD SPECIMENOrdering Facility: [facility] Address: [address] [place] [address] Performed By: #### H STNT ####[facility]IA [id number] [address] [place] Troponin T.cardiac High sensitivity method [Mass/Vol] 50 ng/L High <12 [facility] Comment on above: Order Comment: Speci men Type: BLOOD SPECIMENOrdering Facility: [facility] Address: [address] [place] [address] Performed By: #### H STNT ####[facility]IA [id number] [address] [place] Troponin T.cardiac High sensitivity method [Mass/Vol] 57 ng/L High <12 [facility] Comment on above: Order Comment: Speci men Type: BLOOD SPECIMEN [facility] Address: [address] [place] [address] Performed By: #### 2 4321-2, #### [facility] CLIA [id number] [address] [place] [address] [place] HbA1c (Bld)on 07-25-2024 Average glucose Estimated from glycated hemoglobin (Bld) [Mass/Vol] 111 mg/dL Normal [facility] Comment on above: Order Comment: Speci men Type: BLOOD SPECIMENOrdering Facility: [facility] Address: [address] [place] [address] Result Comment: eAG: (Estimated average glucose) is a calculated value from HgbA1c and is industrial sales representative of the average blood glucose level in the last 2-3 month period. Performed By: #### 5 5454-3 ####[facility] LABCLIA [id number] [place] [address] [place] HbA1c (Bld) [Mass fraction] 5.5 % Normal 4.3-5.6 [facility] Comment on above: Order Comment: Kianai men Type: BLOOD SPECIMENOrdering Facility: [facility] Address: [address] [place] [address] Result Comment: Amer ican Diabetes Association guidelines indicate that patients with HgbA1c in the range 5.7-6.4% are at increased risk for development of diabetes, and intervention by lifestyle modification may be beneficial. HgbA1c greater or equal to 6.5% is considered diagnostic of diabetes. Performed By: #### 5 5454-3 ####[facility] LABCLIA [id number] [place] [address] [place] Magnesium SerPl-mCncon 07-25 Magnesium [Mass/Vol] 2.5 mg/dL High 1.7-2.3 [facility] Comment on above: Order Comment: Kianai men Type: BLOOD SPECIMEN [facility] Address: [address] [place] [address] Performed By: #### 2 432 #### [facility] CLIA [id number] [address] [place] [address] [place] NURSING PROGon 07-25-2024 NURSING PROG HNO ID: [id number] Author: DOMINGUEZ OBREGON RN Service: ? Author Type: Registered Nurse Type: Nursing Progress Note Filed: 07/25/2024 16:49 Note Text: ..AMBULATORY PATIENT EDUCATION TOPIC: SURVIVAL SKILLS: MICKI READINESS TO LEARN COGNITIVE ABILITY: Alert and oriented MOTIVATION TO LEARN: Eager Interested FAMILY SUPPORT: None - Unavailable/disintereste d INSTRUCTION PROVIDED TO: Patient PATIENT LEARNS BEST BY: Individual Instruction Verbal Instruction FACTORS AFFECTING LEARNING: None PHYSICAL LIMITATIONS AFFECTING LEARNING: None LEARNING RESPONSE DIAGNOSIS: R/O IE METHOD OF INSTRUCTION: Individual instruction Verbal instruction PATIENT / FAMILY RESPONSE: Verbalizes understanding of: POST-OPERATIVE INSTRUCTIONS-Correct actions to take to reduce postoperative complications PRE-PROCEDURE INSTRUCTIONS-Correct action to take to follow pre-procedure instructions FOLLOW-UP PLAN: Complete - No need for follow-up SUPPLEMENTAL MATERIAL: None REFERRAL (RECOMMENDATION): None Electronically Signed By Dominguez Obregon RN In Department: CARDIOLOGY Normal [facility] PTT, ANTICOAGULANT THERAPYon 07-25-2024 aPTT Coag (PPP) [Time] 48.6 s High 23.0-32.4 [facility] Comment on above: Order Comment: Speci men Type: BLOOD SPECIMEN [facility] Address: [address] [place] [address] Performed By: #### 2 4320-04, #### [facility] CLIA [id number] [address] [place] [address] OF [place] aPTT Coag (PPP) [Time] 48.0 s High 23.0-32.4 [facility] Comment on above: Order Comment: Speci men Type: BLOOD SPECIMEN [facility] Address: [address] [place] [address] Performed By: #### 2 43203-15, #### [facility] CLIA [id number] [address] [place] [address] [place] TSH SerPl-aCncon 07-25-2024 TSH Qn 3.760 m[IU]/L Normal 0.270-4.20 0 [facility] Comment on above: Order Comment: Speci men Type: BLOOD SPECIMEN [facility] Address: [address] [place] [address] Result Comment: If t he patient is , TSH reference range varies by gestational period: First Trimester (weeks 9-12): 0.180-2.990 mIU/L Second Trimester: 0.110-3.980 mIU/L Third Trimester: 0.480-4.710 mIU/L Bacilio Lay et al. A Practical Approach for the Verifications and Determination of Site- and Trimester-Specific Reference Intervals for Thyroid Function tests in . Thyroid, 2019:29:3:412-420. Lopez Recio, et al. 2017 Guidelines of the [place] Thyroid Association for the Diagnosis and Management of Thyroid Disease during and the . Thyroid, 2017:27:3:315-389. Performed By: #### 2 4321-2, 43009-4 #### [facility] CLIA [id number] [address] [place] [address] [place] US LEG VEIN DVT [facility] n 07-25-2024 LEG VEIN DVT [facility] Non-Invasive Vascular Laboratory [facility] Portable Lower Extremity Venous Duplex Bilateral/Complete Date of service/time: 07/25/2024 10:20:32 AM Name: MRS. MICHELLE MITCHELL Date of : 1980 Age: 43 years Gender: F Clinical Indication Hospital transfer protocol. TECHNIQUE -------- A venous duplex ultrasound examination was performed, including grayscale imaging with compression maneuvers and color Doppler and spectral Doppler examination with augmentation maneuvers and response to respiration of the below mentioned veins. FINDINGS -------- RIGHT SIDE Distal external iliac vein Doppler: normal flow. Compression: normal. Common femoral vein Doppler: normal flow. Compression: normal. Femoral vein Doppler: normal flow. Compression: normal. Popliteal vein Doppler: normal flow. Compression: normal. Posterior tibial veins Compression: normal. Peroneal veins Compression: normal. Great saphenous vein Compression: normal. Small saphenous vein Compression: normal. LEFT SIDE Distal external iliac vein Doppler: normal flow. Compression: normal. Common femoral vein Doppler: normal flow. Compression: normal. Femoral vein Doppler: normal flow. Compression: normal. Popliteal vein Doppler: normal flow. Compression: normal. Posterior tibial veins Compression: normal. Peroneal veins Compression: normal. Great saphenous vein Compression: normal. Small saphenous vein Compression: normal. IMPRESSION Compared to prior study of 01/19/2017, no significant change. RIGHT SIDE - DEEP VEINS Negative for acute deep vein thrombosis. LEFT SIDE - DEEP VEINS Negative for acute deep vein thrombosis. Technologist: Dimple Mina RVT Ordering physician: TEJAL RODRÍGUEZ Interpreting physician: Joey Kowalski DO, RVT, RPVI Final CC [employer] [facility] Image : [id number] See Link below for Image Normal [facility] Bacteria Bld Culton 07-25-19 25 Bacteria identified Cx Nom (Bld) CULTURE, BLOOD: No growth 5 days Normal [facility] Comment on above: Performed By: #### 6 00-7 ####[facility] LABCLIA [id number] [address] STATES [place] CONSULTon 07-24-2024 CONSULT HNO ID: [id number] Author: DAINA MCPHERSON MD Service: Infectious Disease Author Type: Physician Type: Consults Filed: 07/24/2024 23:38 Note Text: INFECTIOUS DISEASE CONSULT NOTE Date: July 24, 2024 Patient Name: Michelle Mitchell Asked to see patient by Dr. Fonseca for possible endocarditis. My recommendations will be communicated back by way of shared medical record. HISTORY OF PRESENT ILLNESS: Michelle Mitchell is a 43 year old with history of HCM s/p ICD in 2006, lead revision 2008, explant/reimplant for lead malfunction 2016), pericarditis, breast cancer s/p lumpectomy and chemotherapy, ovarian cancer s/p oophorectomy, endometrial cancer, DVT/PE 2017, recent leg abscess for which she was hospitalized from 05/16-05/22/24. She presented with abdominal pain around [facility], for which she had presented several times to ED. Labs had previously been unremarkable. She underwent EGD and colonoscopy, results pending. She returned to ED with worsening abdominal and now chest pain. Noted to have leukocytosis on admission, elevated troponins, and subsequent TTE that was reported to have vegetation on ICD lead which had also been seen on prior TTE in 2023. She was transferred for further mgmt. She denies fevers or chills, though endorses sweats. Rest of workup is unclear at this time. PAST HISTORY PAST MEDICAL HISTORY Diagnosis Date Breast cancer (HCC) Age 17 treated with radiation, lumpectomy and masectomy CIS (carcinoma in situ of cervix) Colon polyp 07/2015 Congestive heart failure (HCC) HOCM DVT (deep venous thrombosis) (HCC) Endometrial cancer (HCC) treated with ablation Gastroesophageal reflux disease 08/17/2017 GERD (gastroesophageal reflux disease) Hypertr obst cardiomyop ICD (implantable cardiac defibrillator) battery depletion Kidney stone Migraine Ovarian epithelial cancer (HCC) This diagnosis unlikely as both ovaries present 05/09/2018 laparoscopy Pericarditis (HCC) PUD (peptic ulcer disease) Pulmonary embolism (HCC) 11/2016 Vaginal Pap smear with ASC-US 12/2016 PAST SURGICAL HISTORY Procedure Laterality Date ANES PERMANENT TRANSVENOUS PACEMAKER INSERTION Apr. 2006 ICD implant, [facility] ANESTHESIA TUBAL LIGATION/TRANSECTION APPENDECTOMY 05/05/2014 , lap BREAST LUMPECTOMY HX Left 1997 with radiation CHOLECYSTECTOMY HX 08/2010 lap COLONOSCOPY AND POLYPECTOMY 08/07/2015 CONIZATION CERVIX W/WO DANDC RPR KNIFE/LASER CIS EGD 08/25/2017 Tabbaa- normal ENDOMETRIAL ABLATION WITH US GUIDANCE for abnormal uterine bleeding EXCISION OF CYST 08/23/2017 Dr. Velasco Excision of sebaceous cyst IMPLANTABLE CARDIAC DEFIB ICD 02/2009, 10/19/2016 LAPAROSCOPY DIAGNOSTIC 07/21/2015 Lysis of adhesions, MIDLINE INSERTION/CONSULT 01/18/2017 PAST SURGICAL HISTORY OF 05/24/2014 Laparoscopy, FAMILY HISTORY Reviewed. No identified heritable predisposition to infection. SOCIAL HISTORY Social History Tobacco Use Smoking status: Every Day Current packs/day: 0.25 Average packs/day: 0.3 packs/day for 42.4 years (10.6 ttl pk-yrs) Types: Cigarettes Start date: 03/14/1982 Smokeless tobacco: Never Tobacco comments: since age 12 yrs Vaping Use Vaping status: Never Used Substance Use Topics Alcohol use: No Drug use: No MEDICATIONS: Medications reviewed. ALLERGIES ALLERGIES Allergen Reactions Prozac [Fluoxetine * Other: See Comments suicidal ideations Ativan [Lorazepam] Vomiting Azithromycin Intolerance [place] Anaphylaxis [place] Anaphylaxis pickles Fish Anaphylaxis Levofloxacin In D5w Swelling, Itching IV site swollen, ceased after d/c, redness and itching at site Neurontin [Gabapent* Mental Status Change Shellfish Anaphylaxis Tigan [Trimethobenz* Anaphylaxis Ultram [Tramadol] Hives Pt states she also pukes a lot Vicodin [Hydrocodon* Shortness of Breath pt states that she is able to take percocet IMMUNIZATION HISTORY Immunization History Administered Date(s) Administered influenza (IIV3) vaccine, age 6 mo - 64 yr, trivalent, PF (AFLURIA, FLUARIX, FLULAVAL, FLUVIRIN, FLUZONE) 01/12/2014 influenza vaccine, unspecified formulation 12/16/2008 01/03/2013 pneumococcal polysaccharide (PPV23) vaccine, 23 valent (PNEUMOVAX 23) 04/05/2011 REVIEW OF SYSTEMS: A complete ROS was performed and all others are negative. EXAMINATION: BP 126/74 Pulse 69 Temp 36.6 ?C (97.9 ?F) (Oral) Resp 18 LMP 06/12/2006 SpO2 97% General: appears in pain, ambulatory Eyes: anicteric, pink conjunctivae Mouth: no oral lesions Respiratory: clear to auscultation Cardiovascular:normal rate and rhythm, R icd pocket clean GI:abdomen soft MSK:no joint swelling, L lower leg healed abscess Skin:no rash Neuro: alert, oriented Lab, Microbiology and Imaging data: Independently reviewed and analyzed. ASSESSMENT: 43 year old with history of HCM s/p ICD in 2006, deloris (more content not included)... Normal [facility] CRP SerPl HS-mCncon 07-25-19 25 CRP High sensitivity method [Mass/Vol] 0.9 mg/L Normal <3.1 [facility] Comment on above: Order Comment: Speci men Type: BLOOD SPECIMEN [facility] Address: [address] [place] [address] Result Comment: hsCR P < 1.0 mg/L, relative risk is low hsCRP 1.0-3.0 mg/L, relative risk is average hsCRP > 3.0 mg/L, relative risk is high Reference: Yunior TA, Chen [place], Lopez RW, et al. Markers of Inflammation and Cardiovascular Disease. Application to Clinical and Public Health Practice. A Statement for Healthcare Professionals from the Centers for Disease Control and Prevention and the [place] Heart Association. Circulation 2003;107:499-511. Performed By: #### 1 9123-9, 45651-5 #### [facility] CLIA [id number] [address] [place], [place] [address] STATES OF [facility] ECHOon 07-24-2024 Echocardiography Echocardiography Rep ort: Transthoracic Echo [facility] Bedside Date of service: 07/24/2024 3:02:30 PM OPERATIONS ENGINEER Ordering physician: TEJAL RODRÍGUEZ Indication: Shortness of Breath Technologist: Krissy Oviedo RVT Interpreting physician: Kasie Mcgee MD PATIENT: Name: MRS. MICHELLE MITCHELL : 1980 Age: 43 years Gender: F History of cardiomyopathy, arrhythmia and pericarditis. Previous cardiovascular interventions: ICD implant (10/29/2016) Primary rhythm: sinus. Height: 162.60 cm BSA: 1.65 m Weight: 60.20 kg BMI: 22.8 kg/m Heart rate 71 bpm Blood pressure 124/81 mmHg Technically difficult exam due to patient discomfort. Color Doppler was utilized to interrogate the cardiac valves assessed and spectral Doppler was utilized to determine the flow velocities and pressure gradients reported in this exam. MEASUREMENTS: Value Indexed Normal Max aortic dimension 2.8 cm Ao < 3.8 Left atrial volume 103 ml (Vann's) 63 ml/m Carrington <= 34 LV ID (diastole) 5.0 cm (2D) 3.03 cm/m LV ID (systole) 3.3 cm (2D) 2.00 cm/m IVS, leaflet tips 1.1 cm (2D) Posterior wall thickness 0.9 cm (2D) Left ventricular mass 182 g (2D) 110 g/m Ejection Fraction 55 % (visual est.) EF > 54 FINDINGS: LEFT VENTRICLE The left ventricle is normal in size. There is left ventricular hypertrophy. Left ventricular systolic function is normal. Grade I left ventricular diastolic dysfunction. Mitral annular lateral E/e': 9.9. Wall Motion: All scored segments are normal. RIGHT VENTRICLE The right ventricle is normal in size. Pacer wires are noted in the right ventricle. Right ventricular systolic function is normal. RV systolic tissue Doppler velocity is 11.4 cm/s. Tricuspid annular displacement is 2.2 cm. Estimated right ventricular systolic pressure is 58 mmHg consistent with moderate pulmonary hypertension. Estimated right atrial pressure is 3 mmHg based on IVC assessment. LEFT ATRIUM The left atrial cavity is dilated. RIGHT ATRIUM The right atrial cavity is normal in size. Pacer wires are noted in the right atrium. Inferior Vena Cava: The inferior vena cava appears normal measuring 1.4 cm. The vessel decreases greater than 50 percent with inspiration. MITRAL VALVE The mitral valve leaflets are structurally normal. There is trace (trace - 1+) mitral valve regurgitation. The pressure half time is 41 msec. The average mitral E/e' ratio is 9.9. The mitral flow deceleration time is 142 msec. TRICUSPID VALVE The tricuspid valve leaflets are structurally normal. There is moderate (2+) tricuspid valve regurgitation. The hepatic venous pattern showed blunted systolic flow. AORTIC VALVE The aortic valve cusps are structurally normal. There is no aortic valve regurgitation. Tricuspid aortic valve. PULMONIC VALVE The pulmonic valve was not seen or not interrogated. There is trace pulmonic valve regurgitation. AORTA The visualized aorta is normal in size. Measurements - Sinus: 2.7 cm. Mid ascending aorta 2.8 cm. INTERATRIAL SEPTUM There is no evidence of intracardiac shunting as detected by Doppler. Negative agitated saline study done 01/20/2017. INTERVENTRICULAR SEPTUM There is no flow through the interventricular septum as detected by Doppler. PERICARDIUM There is a trivial pericardial effusion. CONCLUSIONS: - Technically difficult exam due to patient discomfort. - Exam indication: Shortness of Breath - The left ventricle is normal in size. There is left ventricular hypertrophy. Left ventricular systolic function is normal. EF = 55 5% (visual est.) - The right ventricle is normal in size. Right ventricular systolic function is normal. - The left atrial cavity is dilated. - There is moderate (2+) tricuspid valve regurgitation. - Estimated right ventricular systolic pressure is 58 mmHg consistent with moderate pulmonary hypertension. Estimated right atrial pressure is 3 mmHg based on IVC assessment. - Mobile echodensity in RA measuring 0.9 x 0.7 cm - ? attached to the IAS vs. ICD - see clips 49, 78. - Exam was compared with the prior CC echocardiographic exam performed on 04/25/2021 ([facility]). Mobile echodensity reported today as above. MICKI may better assesss. * * * Final * * * [employer] [facility] Image : [id number] Normal [facility] ESR Westergren method (Bld) [Velocity]on 07-24-2024 ESR (Bld) [Velocity] 2 mm/h Normal 0-20 [facility] Comment on above: Order Comment: Speci men Type: BLOOD SPECIMENOrdering Facility: [facility] Address: [address] [place] [address] Performed By: #### 4 537-7 ####[facility] LABCLIA [id number] [place] [address] [place] HCG Preg Ur Qlon 07-24-2024 HCG ( test) Ql (U) Negative Normal Negative [facility] Comment on above: Order Comment: Speci men Type: BLOOD SPECIMEN [facility] Address: [address] [place] [address] Result Comment: This test is intended to aid in the early detection of . Very dilute urine samples, as indicated by a low specific gravity, may not contain industrial sales representative levels of hCG. This test detects intact hCG only. This test does not reliably detect hCG degradation products, including free-beta subunit and beta-core fragment. Therefore, this test may show reduced reactivity in urine after 8 weeks gestation. A number of conditions other than , including trophoblastic disease and certain non-trophoblastic neoplasms cause elevated levels of hCG. As with any assay employing mouse antibodies, the possibility exists for interference by human anti-mouse antibodies (HAMA) in the specimen. The test provides a presumptive diagnosis for . Performed By: #### 1 9123-9, 48154-2 #### [facility] CLIA [id number] [address] [place] [address] [place] HISTORY PHYSICALon HISTORY PHYSICAL HNO ID: [id number] Author: CASE FONSECA MD Service: Cardiovascular Medicine Author Type: Physician Type: H&P Filed: 07/25/2024 10:09 Note Text: [facility] CARDIOVASCULAR MEDICINE HISTORY AND PHYSICAL Michelle Mitchell [id number] PRIMARY SERVICE: Cardiovascular Medicine: Imaging DATE OF ADMISSION: 07/24/2024 CHIEF COMPLAINT: ADHF, ?ICD infection vs endocarditis HISTORY OF PRESENT ILLNESS Michelle Mitchell is a 43 year old female with PMH of newly reduced HFrEF, HCM (s/p ICD in 2006, lead revision 2008, explant/reimplant 10/19/2016), pericarditis, breast cancer at age 18 (s/p lumpectomy and chemotherapy), ovarian cancer s/p oophorectomy, endometrial cancer s/p ablation, DVT/PE 2016 (not currently on anticoagulation), anxiety/depression, PUD, GERD, recent leg abscess requiring hospitalization from 05/16/24-05/22/24 and was treated with IV abx and discharged home on Bactrim. She states she began having abdominal issues around [facility], she went to [facility] for EGD/ colonoscopy, multiple biopsies taken. This past Tuesday went from mild pain/swelling to extreme abdominal swelling, facial and neck swelling. She presented to the ED and was given IV lasix with some improvement. Patient states her normal normal weight is 104 lbs, her current weight is 132 lbs. Patient has extansive family hx of HOCM, father and both sisters have HOCM with one sister receiving a heart transplant. They state women in the family usually do not live past 40 without a heart transplant d/t HOCM. Family follows with Dr. Likn. Patient endorses unintentional weight gain, excessive sweating, and increased chest pain with activity, SOB at rest and with exertion on 2 L PRN since admission. Patient does have a history of chronic chest pain first reported after PE in 2016. She states the pain is worse compared to her usual. She used to follow with Dr. Menon, last seen 09/2019, lost to follow-up. PAST MEDICAL HISTORY PAST MEDICAL HISTORY Diagnosis Date Breast cancer (HCC) Age 17 treated with radiation, lumpectomy and masectomy CIS (carcinoma in situ of cervix) Colon polyp 07/2015 Congestive heart failure (HCC) HOCM DVT (deep venous thrombosis) (HCC) Endometrial cancer (HCC) treated with ablation Gastroesophageal reflux disease 08/17/2017 GERD (gastroesophageal reflux disease) Hypertr obst cardiomyop ICD (implantable cardiac defibrillator) battery depletion Kidney stone Migraine Ovarian epithelial cancer (HCC) This diagnosis unlikely as both ovaries present 05/09/2018 laparoscopy Pericarditis (HCC) PUD (peptic ulcer disease) Pulmonary embolism (HCC) 11/2016 Vaginal Pap smear with ASC-US 12/2016 PAST SURGICAL HISTORY Procedure Laterality Date ANES PERMANENT TRANSVENOUS PACEMAKER INSERTION Apr. 2006 ICD implant, [facility] ANESTHESIA TUBAL LIGATION/TRANSECTION APPENDECTOMY 05/05/2014 , lap BREAST LUMPECTOMY HX Left 1997 with radiation CHOLECYSTECTOMY HX 08/2010 lap COLONOSCOPY AND POLYPECTOMY 08/07/2015 CONIZATION CERVIX W/WO DANDC RPR KNIFE/LASER CIS EGD 08/25/2017 Tabbaa- normal ENDOMETRIAL ABLATION WITH US GUIDANCE for abnormal uterine bleeding EXCISION OF CYST 08/23/2017 Dr. Velasco Excision of sebaceous cyst IMPLANTABLE CARDIAC DEFIB ICD 02/2009, 10/19/2016 LAPAROSCOPY DIAGNOSTIC 07/21/2015 Lysis of adhesions, MIDLINE INSERTION/CONSULT 01/18/2017 PAST SURGICAL HISTORY OF 05/24/2014 Laparoscopy, FAMILY HISTORY FAMILY HISTORY Problem Relation Age of Onset Heart Mother heart valve replaced, was in a car accident in early age Breast Cancer Mother dx age 50 DVT Mother Heart Father IHSS, CHF, HOCM other (Paternal half-sister) Sister Paternal half-sister; on transplant list other (HOCM) Sister Heart Paternal Grandmother stroke, at age 43 Heart Paternal Grandfather at age 45 Heart Paternal Aunt at age 27 Heart Paternal Aunt at age 29 Cancer Sister 20 Brain Breast Cancer Sister 28 Colon Cancer Sister 26 DVT Sister Heart Sister Reported HOCM, heart transplant at 34 SOCIAL HISTORY Social History Tobacco Use Smoking status: Every Day Current packs/day: 0.25 Average packs/day: 0.3 packs/day for 42.4 years (10.6 ttl pk-yrs) Types: Cigarettes Start date: 03/14/1982 Smokeless tobacco: Never Tobacco comments: since age 12 yrs Vaping Use Vaping status: Never Used Substance Use Topics Alcohol use: No Drug use: No HOME MEDICATIONS dicyclomine (BENTYL) 10 mg capsuleTake 1 capsule by mouth three times a day before meals.Disp: 90 capsuleRfl: [address] (PROTONIX) 40 mg tabletTake 1 tablet by mouth two times a day before meals at 6 am and 4 pm.Disp: 60 tabletRfl: 2 sucralfate (CARAFATE) 1 gram tabletTake 1 tablet by mouth two times a day before meals.Disp: 180 tabletRfl: 0 vortioxetine (TRINTELLIX) 10 mg (more content not included)... Normal [facility] 07-24 Natriuretic peptide.B prohormone N-Terminal [Mass/Vol] 3054 pg/mL High <125 [facility] Comment on above: Order Comment: Speci men Type: BLOOD SPECIMEN Ordering Facility: [facility] Address: [address] [place] [address] Performed By: #### 1 9123-9, 22949-6 #### [facility] CLIA [id number] [address] [place] [address] [place] PTT, ANTICOAGULANT THERAPYon 07-24-2024 aPTT Coag (PPP) [Time] 32.1 s Normal 23.0-32.4 [facility] Comment on above: Order Comment: Speci men Type: BLOOD SPECIMEN Ordering Facility: [facility] Address: [address] [place] [address] Performed By: #### 1 9123-9, 64397-2 #### [facility] CLIA [id number] [address] [place] [address] [place] TOXICOLOGY SCREEN, ROUTINE U RINEon 07-24-2024 Amphetamines Confirm (U) [Mass/Vol] Negative Normal Negative [facility] Comment on above: Order Comment: Speci men Type: BLOOD SPECIMEN Ordering Facility: [facility] Address: [address] [place] [address] Result Comment: Cuto ff threshold at 1000 ng/mL. Performed By: #### 1 9123-9, 19830-9 #### [facility] CLIA [id number] [address] [place] [address] [place] BARBITURATES, URINE Negative Normal Negative [facility] Comment on above: Order Comment: Speci men Type: BLOOD SPECIMEN Ordering Facility: [facility] Address: [address] [place] [address] Result Comment: Cuto ff threshold at 200 ng/mL. Performed By: #### 1 9123-9, 03699-9 #### [facility] CLIA [id number] [address] [place] [address] [place] BENZODIAZEPINES, UR Negative Normal Negative [facility] Comment on above: Order Comment: Speci men Type: BLOOD SPECIMEN Ordering Facility: [facility] Address: [address] [place] [address] Result Comment: Cuto ff threshold at 200 ng/mL. Performed By: #### 1 9123-9, 46948-2 #### [facility] CLIA [id number] [address] [place] [address] [place] Cannabinoids Screen Ql (U) Negative Normal Negative [facility] Comment on above: Order Comment: Speci men Type: BLOOD SPECIMEN Ordering Facility: [facility] Address: [address] [place] [address] Result Comment: Cuto ff threshold at 50 ng/mL. Performed By: #### 1 9123-9, 96326-1 #### [facility] CLIA [id number] [address] [place] [address] [place] Cocaine Ql (U) Negative Normal Negative [facility] Comment on above: Order Comment: Speci men Type: BLOOD SPECIMEN Ordering Facility: [facility] Address: [address] [place] [address] Result Comment: Cuto ff threshold at 300 ng/mL. Performed By: #### 1 9123-9, 67648-7 #### [facility] CLIA [id number] [address] [place] [address] [place] Ethanol (U) [Mass/Vol] <11 Normal <11 [facility] Comment on above: Order Comment: Speci men Type: BLOOD SPECIMEN Ordering Facility: [facility] Address: [address] [place] [address] Performed By: #### 1 9123-9, 27589-1 #### [facility] CLIA [id number] [address] [place] [address] [place] Opiates Screen Ql (U) Negative Normal Negative [facility] Comment on above: Order Comment: Speci men Type: BLOOD SPECIMEN Ordering Facility: [facility] Address: [address] [place] [address] Result Comment: Cuto ff threshold at 300 ng/mL. Performed By: #### 1 9123-9, 97867-8 #### [facility] CLIA [id number] [address] [place] [address] [place] oxyCODONE cutoff Screen (U) [Mass/Vol] Positive Abnormal Negative [facility] Comment on above: Order Comment: Speci men Type: BLOOD SPECIMEN Ordering Facility: [facility] Address: [address] [place] [address] Result Comment: Cuto ff threshold at 100 ng/mL. Performed By: #### 1 9123-9, 67811-4 #### [facility] CLIA [id number] [address] [place] [address] [place] Phencyclidine Ql (U) Negative Normal Negative [facility] Comment on above: Order Comment: Speci men Type: BLOOD SPECIMEN Ordering Facility: [facility] Address: [address] [place] [address] Result Comment: Cuto ff threshold at 25 ng/mL. Performed By: #### 1 9123-9, 83560-9 #### [facility] CLIA [id number] [address] [place] [address] [place] TYPE + SCREENon 07-24-2024 ABO A Normal [facility] Comment on above: Order Comment: Speci men Type: BLOOD SPECIMEN Ordering Facility: [facility] Address: [address] [place] [address] Performed By: #### 2 4321-2, #### [facility] CLIA [id number] [address] [place] [address] [place] Rh Nom (Bld) Positive Normal [facility] Comment on above: Order Comment: Speci men Type: BLOOD SPECIMEN Ordering Facility: [facility] Address: [address] [place] [address] Performed By: #### 2 4321-2, #### [facility] CLIA [id number] [address] [place] [address] [place] TYPE AND SCREEN EXPIRATION 07/27/2024 23:59 Normal [facility] Comment on above: Order Comment: Speci men Type: BLOOD SPECIMEN Ordering Facility: [facility] Address: [address] [place] [address] Performed By: #### 2 4321-2, #### [facility] CLIA [id number] [address] [place] [address] [place] Urinalysis complete panel (U )on 07-24-2024 Bacteria LM.HPF (Urine sed) [#/Area] Negative Normal Negative [facility] Comment on above: Order Comment: Speci men Type: BLOOD SPECIMEN Ordering Facility: [facility] Address: [address] [id number] Performed By: #### 1 9123-9, 01290-2 #### [facility] CLIA [id number] [address] [place], [place] [address] [place] Bilirubin Ql (U) Negative Normal Negative [facility] Comment on above: Order Comment: Speci men Type: BLOOD SPECIMEN Ordering Facility: [facility] Address: [address] [place] [address] Performed By: #### 1 91239, 97244-8 #### [facility] CLIA [id number] [address] [place] [address] [place] Clarity (Unsp spec) Clear Normal Clear [facility] Comment on above: Order Comment: Speci men Type: BLOOD SPECIMEN Ordering Facility: [facility] Address: [address] [place] [address] Performed By: #### 1 91239, 88369-0 #### [facility] CLIA [id number] [address] [place] [address] [place] Color (U) Yellow Normal Yellow [facility] Comment on above: Order Comment: Speci men Type: BLOOD SPECIMEN Ordering Facility: [facility] Address: [address] [place] [address] Performed By: #### 1 91239, 00467-3 #### [facility] CLIA [id number] [address] [place], [place] [address] [place] Epithelial cells LM.HPF (Urine sed) [#/Area] None Seen Normal [facility] Comment on above: Order Comment: Speci men Type: BLOOD SPECIMEN Ordering Facility: [facility] Address: [address] [place] [address] Performed By: #### 1 9123-9, 91332-7 #### [facility] CLIA [id number] [address] [place], [place] [address] [place] Glucose Test strip (U) [Mass/Vol] Trace Abnormal Negative [facility] Comment on above: Order Comment: Speci men Type: BLOOD SPECIMEN Ordering Facility: [facility] Address: [address] [place] [address] Performed By: #### 1 9123-9, 24709-9 #### [facility] CLIA [id number] [address] [place], [place] [address] [place] Hemoglobin Ql (U) Negative Normal Negative [place] Comment on above: Order Comment: Speci men Type: BLOOD SPECIMEN Ordering Facility: [facility] Address: [address] [place] [address] Performed By: #### 1 9123-9, 69534-5 #### [facility] CLIA [id number] [address] [place] [address] [place] Hyaline casts (Urine sed) [#/Area] 1-3 /LPF Abnormal 0 /LPF [facility] Comment on above: Order Comment: Speci men Type: BLOOD SPECIMEN Ordering Facility: [facility] Address: [address] [place] [address] Performed By: #### 1 9123-9, 13959-4 #### [facility] CLIA [id number] [address] [place], [place] [address] [place] Ketones Ql (U) Negative Normal Negative [facility] Comment on above: Order Comment: Speci men Type: BLOOD SPECIMEN Ordering Facility: [facility] Address: [address] [place] [address] Performed By: #### 1 9123-9, 42799-1 #### [facility] CLIA [id number] [address] [place], [place] [address] [place] Leukocyte esterase Test strip Ql (U) Negative Normal Negative [facility] Comment on above: Order Comment: Speci men Type: BLOOD SPECIMEN Ordering Facility: [facility] Address: [address] [place], [place] [address] Performed By: #### 1 9123-9, 41794-2 #### [facility] CLIA [id number] [address] [place] [address] [place] Nitrite Ql (U) Negative Normal Negative [facility] Comment on above: Order Comment: Speci men Type: BLOOD SPECIMEN Ordering Facility: [facility] Address: [address] [place] [address] Performed By: #### 1 91239, 16149-5 #### [facility] CLIA [id number] [address] [place] [address] [place] pH (U) 7.5 [pH] Normal <8.5 [facility] Comment on above: Order Comment: Speci men Type: BLOOD SPECIMEN Ordering Facility: [facility] Address: [address] [place] [address] Performed By: #### 1 91239, 51332-8 #### [facility] CLIA [id number] [address] [place] [address] [place] Protein (U) [Mass/Vol] Negative Normal Negative [facility] Comment on above: Order Comment: Speci men Type: BLOOD SPECIMEN Ordering Facility: [facility] Address: [address] [place] [address] Performed By: #### 1 91239, 00374-0 #### [facility] CLIA [id number] [address] [place] [address] [place] RBC LM.HPF (Urine sed) [#/Area] 0-2 /HPF Normal 0-2 /HPF [facility] Comment on above: Order Comment: Speci men Type: BLOOD SPECIMEN Ordering Facility: [facility] Address: [address] [place] [address] Performed By: #### 1 9123-9, 18324-0 #### [facility] CLIA [id number] [address] [place] [address] [place] Specific gravity (U) [Rel density] 1.007 Normal 1.005-1.03 0 [facility] Comment on above: Order Comment: Speci men Type: BLOOD SPECIMEN Ordering Facility: [facility] Address: [address] [place] [address] Performed By: #### 1 9123-9, 76605-2 #### [facility] CLIA [id number] [address] [place] [address] [place] Urobilinogen Ql (U) 0.2 EU/dL Normal 0.2-1.0 EU/dL [facility] Comment on above: Order Comment: Speci men Type: BLOOD SPECIMEN Ordering Facility: [facility] Address: [address] [place] [address] Performed By: #### 1 9123-9, 90297-5 #### [facility] CLIA [id number] [address] [place] [address] [place] WBC LM.HPF (Urine sed) [#/Area] 0-5 /HPF Normal 0-5 /HPF [facility] Comment on above: Order Comment: Speci men Type: BLOOD SPECIMEN Ordering Facility: [facility] Address: [address] [place] [address] Performed By: #### 1 9123-9, 87131-6 #### [facility] CLIA [id number] [address] [place] [address] [place] XR ABDOMEN 1V SUPINEon 07-24 XR ABDOMEN 1V SUPINE * * *Final Report* * * DATE OF EXAM: Jul 24 2024 5:41PM JIX [id number] - XR ABDOMEN 1V SUPINE / PROCEDURE REASON: Abdominal distension * * * * Physician Interpretation * * * * XR ABDOMEN 1V SUPINE HISTORY: Abdominal distension TECHNIQUE: Supine abdomen (1 view), 2 image(s) COMPARISON: Radiograph 03/21/2019, CT abdomen and pelvis 07/04/2024 RESULT: See impression. IMPRESSION: Cholecystectomy clips. Moderate burden of fecal material within the colon. No dilated loops of bowel. No focal bony abnormality. Assembly Department Supervisor: PSCManjinder Transcribe Date/Time: Jul 24 2024 6:40P Dictated by : ANASTASIA WILLSON MD This examination was interpreted and the report reviewed and electronically signed by: ANASTASIA WILLSON MD on Jul 24 2024 6:42PM EST [id number] Normal [facility] 12 Lead EKGon 07-23-2024 12 Lead EKG Normal [facility] Absolute lymphocyte countOrd ered By: Willian Ovalles on 07-23-2024 Lymphocytes Auto (Unsp spec) [#/Vol] 0.52 10*3/uL Low 0.83-4.[address] [facility] Absolute neutrophil countOrd ered By: Willian Ovalles on 07-23-2024 Neutrophils (Bld) [#/Vol] 19.1 10*3/uL High 2.0-7.[address] [facility] Anion gap in Serum or Plasma Ordered By: Willian Ovalles on 07-23-2024 Anion gap [Moles/Vol] 13 mmol/L 5-15 [facility] Automated lymphocyte count a s percentage of total leukocytesOrdered By: Willian Ovalles on 07-23-2024 Lymphocytes/100 WBC Auto (Unsp spec) 2.5 % Low 19-[address] [facility] BUN/creatinine ratioOrdered By: Willian Ovalles on 07-23-2024 Urea nitrogen/Creatinine [Mass ratio] 32.9 mg/mg High 10-[address] [facility] Basic Metabolic Profile (BMP )on 07-23-2024 BUN/CRE 32.9 RATIO High 10-[address] [facility] Comment on above: Performed By: #### L 500.2500, L100.0100 ####[facility] [address] [place], [address] Calcium [Mass/Vol] 9.4 mg/dL Normal 7.6-11.0 [facility] Comment on above: Performed By: #### L 500.2500, L100.0100 ####[facility] [address] [place], [address] Chloride [Moles/Vol] 100 mmol/L Normal 98-108 [facility] Comment on above: Performed By: #### L 500.2500, L100.0100 ####[facility] [address] [place], [address] CO2 [Moles/Vol] 23.1 mmol/L Normal 21.0-32.[address] [facility] Comment on above: Performed By: #### L 500.2500, L100.0100 ####[facility] [address] [place], [address] Creatinine [Mass/Vol] 0.93 mg/dL Normal 0.70-1.20 [facility] Comment on above: Performed By: #### L 500.2500, L100.0100 ####[facility] [address] [place], [address] ECRCL 66.66 ml/min Normal 50-[address] [facility] Comment on above: Performed By: #### L 500.2500, L100.0100 ####[facility] [address] [place], [address] GAP 13 Normal 5-[address] [facility] Comment on above: Performed By: #### L 500.2500, L100.0100 ####[facility] [address] [place], [address] GFR/1.73 sq M.predicted among non-blacks MDRD (S/P/Bld) [Vol rate/Area] 78 mL/min/{1.73_m2} Normal >[address] [facility] Comment on above: Result Comment: mL/m in/1.73m2 CKD-EPI Creatinine Equation (2020) Performed By: #### L 500.2500, L100.0100 ####[facility] [address] [place], [address] Glucose [Mass/Vol] 99 mg/dL Normal 70-99 [facility] Comment on above: Performed By: #### L 500.2500, L100.0100 ####[facility] [address] [place], [address] Potassium [Moles/Vol] 4.6 mmol/L Normal 3.3-5.1 [facility] Comment on above: Result Comment: Hemo lysis present, Results??could be affected.?? Performed By: #### L 500.2500, L100.0100 ####[facility] [address] [place], [address] Sodium [Moles/Vol] 136 mmol/L Normal 133-145 [facility] Comment on above: Performed By: #### L 500.2500, L100.0100 ####[facility] [address] [place], [address] Urea nitrogen [Mass/Vol] 30 mg/dL High 4-[address] [facility] Comment on above: Performed By: #### L 500.2500, L100.0100 ####[facility] [address] [place], [address] Basophil percentageOrdered B y: Willian Ovalles on 07-23-2024 Basophils/100 WBC (Bld) 0.2 % 0-1 [facility] CBC W/Diff, Automatedon 07-12 Absolute Lymph 0.52 X10 3/uL Low 0.83-4.[address] [facility] Comment on above: Performed By: #### L 500.2500, L100.0100 ####[facility] [address] [place], [address] Absolute Neut 19.1 X10 3/uL High 2.0-7.[address] [facility] Comment on above: Performed By: #### L 500.2500, L100.0100 ####[facility] [address] [place], [address] Basophils/100 WBC (Bld) 0.2 % Normal 0-1 [facility] Comment on above: Performed By: #### L 500.2500, L100.0100 ####[facility] [address] [place], [address] Eosinophils/100 WBC (Bld) 0.0 % Normal 0-[address] [facility] Comment on above: Performed By: #### L 500.2500, L100.0100 ####[facility] [address] [place], [address] Erythrocyte distribution width (RBC) [Ratio] 13.9 % Normal 11.6-14.[address] [facility] Comment on above: Performed By: #### L 500.2500, L100.0100 ####[facility] [address] [place], [address] Hematocrit (Bld) [Volume fraction] 45.5 % Normal 37-[address] [facility] Comment on above: Performed By: #### L 500.2500, L100.0100 ####[facility] [address] [place], [address] Hemoglobin (Bld) [Mass/Vol] 15.2 g/dL High 12.0-15.[address] [facility] Comment on above: Performed By: #### L 500.2500, L100.0100 ####[facility] [address] [place], [address] IG% 1.500 High 0.0-0.[address] [facility] Comment on above: Result Comment: IG% - Immature Granulocytes (promyelocytes, myelocytes andmetamyelocytes) > 1% indicates that a LEFT SHIFT is Present. Performed By: #### L 500.2500, L100.0100 ####[facility] [address] [place], [address] Lymphocytes/100 WBC (Bld) 2.5 % Low 19-[address] [facility] Comment on above: Performed By: #### L 500.2500, L100.0100 ####[facility] [address] [place], [address] MCH (RBC) [Entitic mass] 32.4 pg High 27.0-32.[address] [facility] Comment on above: Performed By: #### L 500.2500, L100.0100 ####[facility] [address] [place], [address] MCHC (RBC) [Mass/Vol] 33.4 g/dL Normal 32-36 [facility] Comment on above: Performed By: #### L 500.2500, L100.0100 ####[facility] [address] [place], [address] MCV (RBC) [Entitic vol] 97.0 fL Normal 81-99 [facility] Comment on above: Performed By: #### L 500.2500, L100.0100 ####[facility] [address] [place], [address] Monocytes/100 WBC (Bld) 2.5 % Normal 0-10 [facility] Comment on above: Performed By: #### L 500.2500, L100.0100 ####[facility] [address] [place], [address] Neutrophils/100 WBC (Bld) 93.3 % High 47-[address] [facility] Comment on above: Performed By: #### L 500.2500, L100.0100 ####[facility] [address] [place], [address] Nucleated RBC (Bld) [#/Vol] 0 10*3/uL Normal 0-[address] [facility] Comment on above: Performed By: #### L 500.2500, L100.0100 ####[facility] [address] [place], [address] Platelet mean volume (Bld) [Entitic vol] 10.6 fL Normal 6.2-12.[address] [facility] Comment on above: Performed By: #### L 500.2500, L100.0100 ####[facility] [address] [place], [address] Platelets (Bld) [#/Vol] 372 10*3/uL Normal 150-[address] [facility] Comment on above: Performed By: #### L 500.2500, L100.0100 ####[facility] [address] [place], [address] RBC (Bld) [#/Vol] 4.69 10*6/uL Normal 4.2-5.4 [facility] Comment on above: Performed By: #### L 500.2500, L100.0100 ####[facility] [address] [place], [address] RDW SD 49.4 fl High 35.1-43.[address] [facility] Comment on above: Performed By: #### L 500.2500, L100.0100 ####[facility] [address] [place], [address] WBC (Bld) [#/Vol] 20.5 10*3/uL High 4.4-11.0 [facility] Comment on above: Performed By: #### L 500.2500, L100.0100 ####[facility] [address] [place], [address] Carbon dioxide, total [Moles /volume] in Central venous bloodOrdered By: Willian Ovalles on 07-23-2024 CO2 [Moles/Vol] 23.1 mmol/L 21.0-32.[address] [facility] Chloride assayOrdered By: Andrew Ovalles on 07-23-2024 Chloride [Moles/Vol] 100 mmol/L 98-108 [facility] Eosinophil percentageOrdered By: Willian Ovalles on 07-23-2024 Eosinophils/100 WBC (Bld) 0.0 % 0-5 [facility] Erythrocyte distribution wid th ratioOrdered By: Willian Ovalles on 07-23-2024 Erythrocyte distribution width (RBC) [Ratio] 13.9 % 11.6-14.[address] [facility] Erythrocyte distribution wid th standard deviationOrdered By: Willian Ovalles on 07-23-2024 Erythrocyte distribution width (RBC) [Ratio] 49.4 fl High 35.1-43.[address] [facility] Glomerular filtration rate ( GFR) estimation/1.73 sq m using serum, plasma, or whole bOrdered By: Willian Ovalles on 07-23-2024 GFR/1.73 sq M.predicted among non-blacks MDRD (S/P/Bld) [Vol rate/Area] 78 mL/min/{1.73_m2} >[address] [facility] Comment on above: mL/min/1.73m2 CKD-EP I Creatinine Equation (2020) Hematocrit Auto (Bld) [Volum e fraction]Ordered By: Willian Ovalles on 07-23-2024 Hematocrit (Bld) [Volume fraction] 45.5 % 37-[address] [facility] Hemoglobin measurementOrdere d By: Willian Ovalles on 07-23-2024 Hemoglobin (Bld) [Mass/Vol] 15.2 g/dL High 12.0-15.[address] [facility] Immature granulocytes/100 WB C Auto (Bld)Ordered By: Willian Ovalles on 07-23-2024 Immature granulocytes/100 WBC (Bld) 1.500 % High 0.0-0.[address] [facility] Comment on above: IG% - Immature Granu locytes (promyelocytes, myelocytes and metamyelocytes) > 1% indicates that a LEFT SHIFT is Present. MCV (mean corpuscular volume ) determinationOrdered By: Willian Ovalles on 07-23-2024 MCV (RBC) [Entitic vol] 97.0 fL 81-99 [facility] Mean corpuscular hemoglobin (MCH) determinationOrdered By: Willian Ovalles on 07-23-2024 MCH (RBC) [Entitic mass] 32.4 pg High 27.0-32.[address] [facility] Mean corpuscular hemoglobin concentration (MCHC) determinationOrdered By: Willian Ovalles on 07-23-2024 MCHC (RBC) [Mass/Vol] 33.4 g/dL 32-36 [facility] Mean platelet volume determi nationOrdered By: Willian Ovalles on 07-23-2024 Platelet mean volume (Bld) [Entitic vol] 10.6 fL 6.2-12.[address] [facility] Monocyte percentageOrdered B y: Willian Ovalles on 07-23-2024 Monocytes/100 WBC (Bld) 2.5 % 0-10 [facility] Neutrophil percentageOrdered By: Willian Ovalles on 07-23-2024 Neutrophils/100 WBC (Bld) 93.3 % High 47-[address] [facility] Nucleated red blood cell per centageOrdered By: Willian Ovalles on 07-23-2024 Nucleated RBC/100 WBC (Bld) [Ratio] 0 % 0-[address] [facility] Platelet countOrdered By: Andrew Ovalles on 07-23-2024 Platelets (Bld) [#/Vol] 372 10*3/uL 150-[address] [facility] Potassium measurement (mass/ volume)Ordered By: Willian Ovalles on 07-23-2024 Potassium (Unsp spec) [Mass/Vol] 4.6 mmol/L 3.3-5.[address] [facility] Comment on above: Hemolysis present, R esults could be affected. RBC Auto (Bld) [#/Vol]Ordere d By: Willian Ovalles on 07-23-2024 RBC (Bld) [#/Vol] 4.69 10*6/uL 4.2-5.4 [facility] Serum creatinine measurement (mass/volume)Ordered By: Willian Ovalles on 07-23-2024 Creatinine [Mass/Vol] 0.93 mg/dL 0.70-1.20 [facility] Serum glucose measurement (m ass/volume)Ordered By: Willian Ovalles on 07-23-2024 Glucose [Mass/Vol] 99 mg/dL 70-99 [facility] Serum or plasma calcium leslie urement (mass/volume)Ordered By: Willian Ovalles on 07-23-2024 Calcium [Mass/Vol] 9.4 mg/dL 7.6-11.0 [facility] Serum or plasma urea nitroge n measurement (mass/volume)Ordered By: Willian Ovalles on 07-23-2024 Urea nitrogen [Mass/Vol] 30 mg/dL High 4-[address] [facility] Sodium levelOrdered By: Willian Ovalles on 07-23-2024 Sodium [Moles/Vol] 136 mmol/L 133-145 [facility] Venous duplex ultrasound rep ortOrdered By: Willian Colón on 07-23-2024 [facility] [address] [place] [address] Venous Duplex US - Wan Extrem 07/23/24 0803 MR#: [id number] Acct: [id number] Name: MICHELLE MITCHELL Rep #:[id number] : 1980 43 From: Willian Browne Attending Dr: Dr. Willian Ovalles, Status: ADM IN Ordering Dr: Sergio Umaña DO Date: 07/21/24 Location: U Sex: F C Admitted: 07/21/24 Reason For Study Reason For Study: Shortness of Breath RIGHT LEFT GSV is normal. GSV is normal. CFV is compressible, spontaneous, competent and CFV is compressible, spontaneous, competent, and demonstrates pulsatile venous flow. demonstrates pulsatile venous flow. FV is compressible, spontaneous, competent and FV is compressible, spontaneous, competent and demonstrates pulsatile venous flow. demonstrates pulsatile venous flow. POP V is compressible, spontaneous, competent and POP V is compressible, spontaneous, competent and demonstrates pulsatile venous flow. demonstrates pulsatile venous flow. T/P Trunk is compressible. T/P Trunk is compressible. PTV is compressible. PTV is compressible. RT PerV is compressible. LT PerV is compressible. Procedure This is a venous duplex using B-mode, color flow and spectral Doppler. Exam performed in department. The exam was diagnostic. A preliminary report was called and/or faxed to Dr Bishop / PCU fence post cutter Jody. VL/Venous Duplex US - Wan Extrem Interpretation Summary Deep veins of the bilateral lower extremities are patent and compressible segmentally. There is no evidence of bilateral lower extremity deep vein thrombosis. The bilateral great saphenous veins appearpatent and compressible segmentally. Ordering Physician: Sergio Umaña Performed By: Wei Kessler RVT 07/23/24 1157 Date _ Willian Colón MD CC: Dr. Sergio Umaña DO; Dr. Willian Ovalles DO; Dr. Dex Sutherland MD ~ Date Dictated: 07/23/24 08 Date Transcribed: 07/23/241156 [employer] Supervisor: Signed [facility] Work Phone: White blood cell (WBC) count Ordered By: Willian Ovalles on 07-23-2024 WBC (Bld) [#/Vol] 20.5 10*3/uL High 4.4-11.0 [facility] Basic Metabolic Profile (BMP )on 07-22-2024 BUN/CRE 27.6 RATIO High 10-[address] [facility] Comment on above: Performed By: #### L 100.0100, L500.2500 ####[facility] [address] [place], [address] Calcium [Mass/Vol] 9.1 mg/dL Normal 7.6-11.0 [facility] Comment on above: Performed By: #### L 100.0100, L500.2500 ####[facility] [address] [place], [address] Chloride [Moles/Vol] 100 mmol/L Normal 98-108 [facility] Comment on above: Performed By: #### L 100.0100, L500.2500 ####[facility] [address] [place], [address] CO2 [Moles/Vol] 20.0 mmol/L Low 21.0-32.[address] [facility] Comment on above: Performed By: #### L 100.0100, L500.2500 ####[facility] [address] [place], [address] Creatinine [Mass/Vol] 1.05 mg/dL Normal 0.70-1.20 [facility] Comment on above: Performed By: #### L 100.0100, L500.2500 ####[facility] [address] [place], [address] ECRCL 59.04 ml/min Normal 50-[address] [facility] Comment on above: Performed By: #### L 100.0100, L500.2500 ####[facility] [address] [place], [address] GAP 15 Normal 5-[address] [facility] Comment on above: Performed By: #### L 100.0100, L500.2500 ####[facility] [address] [place], [address] GFR/1.73 sq M.predicted among non-blacks MDRD (S/P/Bld) [Vol rate/Area] 67 mL/min/{1.73_m2} Normal >[address] [facility] Comment on above: Result Comment: mL/m in/1.73m2 CKD-EPI Creatinine Equation (2020) Performed By: #### L 100.0100, L500.2500 ####[facility] [address] [place], [address] Glucose [Mass/Vol] 112 mg/dL High 70-99 [facility] Comment on above: Performed By: #### L 100.0100, L500.2500 ####[facility] [address] [place], [address] Potassium [Moles/Vol] 4.0 mmol/L Normal 3.3-5.1 [facility] Comment on above: Performed By: #### L 100.0100, L500.2500 ####[facility] [address] [place], [address] Sodium [Moles/Vol] 135 mmol/L Normal 133-145 [facility] Comment on above: Performed By: #### L 100.0100, L500.2500 ####[facility] [address] [place], [address] Urea nitrogen [Mass/Vol] 29 mg/dL High 4-[address] [facility] Comment on above: Performed By: #### L 100.0100, L500.2500 ####[facility] [address] [place], [address] Blood cultureOrdered By: Amber Ovalles on 07-22-2024 Bacteria identified Cx Nom (Bld) No growth in [address] [facility] Bacteria identified Cx Nom (Bld) No growth in [address] [facility] CBC W/Diff, Automatedon 07-12 Absolute Lymph 0.95 X10 3/uL Normal 0.83-4.[address] [facility] Comment on above: Performed By: #### L 100.0100, L500.2500 ####[facility] [address] [place], [address] Absolute Neut 13.0 X10 3/uL High 2.0-7.[address] [facility] Comment on above: Performed By: #### L 100.0100, L500.2500 ####[facility] [address] [place], [address] Basophils/100 WBC (Bld) 0.3 % Normal 0-1 [facility] Comment on above: Performed By: #### L 100.0100, L500.2500 ####[facility] [address] [place], [address] Eosinophils/100 WBC (Bld) 0.2 % Normal 0-[address] [facility] Comment on above: Performed By: #### L 100.0100, L500.2500 ####[facility] [address] [place], [address] Erythrocyte distribution width (RBC) [Ratio] 14.1 % Normal 11.6-14.[address] [facility] Comment on above: Performed By: #### L 100.0100, L500.2500 ####[facility] [address] [place], [address] Hematocrit (Bld) [Volume fraction] 39.1 % Normal 37-[address] [facility] Comment on above: Performed By: #### L 100.0100, L500.2500 ####[facility] [address] [place], [address] Hemoglobin (Bld) [Mass/Vol] 12.7 g/dL Normal 12.0-15.[address] [facility] Comment on above: Performed By: #### L 100.0100, L500.2500 ####[facility] [address] [place], [address] IG% 1.200 High 0.0-0.[address] [facility] Comment on above: Result Comment: IG% - Immature Granulocytes (promyelocytes, myelocytes andmetamyelocytes) > 1% indicates that a LEFT SHIFT is Present. Performed By: #### L 100.0100, L500.2500 ####[facility] [address] [place], [address] Lymphocytes/100 WBC (Bld) 6.4 % Low 19-[address] [facility] Comment on above: Performed By: #### L 100.0100, L500.2500 ####[facility] [address] [place], [address] MCH (RBC) [Entitic mass] 32.1 pg High 27.0-32.[address] [facility] Comment on above: Performed By: #### L 100.0100, L500.2500 ####[facility] [address] [place], [address] MCHC (RBC) [Mass/Vol] 32.5 g/dL Normal 32-36 [facility] Comment on above: Performed By: #### L 100.0100, L500.2500 ####[facility] [address] [place], [address] MCV (RBC) [Entitic vol] 98.7 fL Normal 81-99 [facility] Comment on above: Performed By: #### L 100.0100, L500.2500 ####[facility] [address] [place], [address] Monocytes/100 WBC (Bld) 4.8 % Normal 0-10 [facility] Comment on above: Performed By: #### L 100.0100, L500.2500 ####[facility] [address] [place], [address] Neutrophils/100 WBC (Bld) 87.1 % High 47-[address] [facility] Comment on above: Performed By: #### L 100.0100, L500.2500 ####[facility] [address] [place], [address] Nucleated RBC (Bld) [#/Vol] 0 10*3/uL Normal 0-[address] [facility] Comment on above: Performed By: #### L 100.0100, L500.2500 ####[facility] [address] [place], [address] Platelet mean volume (Bld) [Entitic vol] 11.1 fL Normal 6.2-12.[address] [facility] Comment on above: Performed By: #### L 100.0100, L500.2500 ####[facility] [address] [place], [address] Platelets (Bld) [#/Vol] 280 10*3/uL Normal 150-[address] [facility] Comment on above: Performed By: #### L 100.0100, L500.2500 ####[facility] [address] [place], [address] RBC (Bld) [#/Vol] 3.96 10*6/uL Low 4.2-5.4 [facility] Comment on above: Performed By: #### L 100.0100, L500.2500 ####[facility] [address] [place], [address] RDW SD 51.6 fl High 35.1-43.[address] [facility] Comment on above: Performed By: #### L 100.0100, L500.2500 ####[facility] [address] [place], [address] WBC (Bld) [#/Vol] 14.9 10*3/uL High 4.4-11.0 [facility] Comment on above: Performed By: #### L 100.0100, L500.2500 ####[facility] [address] [place], [address] Bilirubin, totalOrdered By: Sergio Whalen on 07-21-2024 Bilirubin [Mass/Vol] 0.59 mg/dL 0.00-1.30 [facility] CBC W/Diff, Automatedon 07-12 Absolute Lymph 0.59 X10 3/uL Low 0.83-4.[address] [facility] Comment on above: Performed By: #### L 500.4050, L100.0100, L500.4100, L501.2300 ####[facility] [address] [place], [address] Absolute Neut 15.8 X10 3/uL High 2.0-7.[address] [facility] Comment on above: Performed By: #### L 500.4050, L100.0100, L500.4100, L501.2300 ####[facility] [address] [place], [address] Basophils/100 WBC (Bld) 0.2 % Normal 0-1 [facility] Comment on above: Performed By: #### L 500.4050, L100.0100, L500.4100, L501.2300 ####[facility] [address] [place], [address] Eosinophils/100 WBC (Bld) 0.1 % Normal 0-[address] [facility] Comment on above: Performed By: #### L 500.4050, L100.0100, L500.4100, L501.2300 ####[facility] [address] [place], [address] Erythrocyte distribution width (RBC) [Ratio] 14.2 % Normal 11.6-14.[address] [facility] Comment on above: Performed By: #### L 500.4050, L100.0100, L500.4100, L501.2300 ####[facility] [address] [place], [address] Hematocrit (Bld) [Volume fraction] 41.0 % Normal 37-[address] [facility] Comment on above: Performed By: #### L 500.4050, L100.0100, L500.4100, L501.2300 ####[facility] [address] [place], [address] Hemoglobin (Bld) [Mass/Vol] 13.6 g/dL Normal 12.0-15.[address] [facility] Comment on above: Performed By: #### L 500.4050, L100.0100, L500.4100, L501.2300 ####[facility] [address] [place], [address] IG% 1.000 High 0.0-0.[address] [facility] Comment on above: Result Comment: IG% - Immature Granulocytes (promyelocytes, myelocytes andmetamyelocytes) > 1% indicates that a LEFT SHIFT is Present. Performed By: #### L 500.4050, L100.0100, L500.4100, L501.2300 ####[facility] [address] [place], [address] Lymphocytes/100 WBC (Bld) 3.5 % Low 19-[address] [facility] Comment on above: Performed By: #### L 500.4050, L100.0100, L500.4100, L501.2300 ####[facility] [address] [place], [address] MCH (RBC) [Entitic mass] 32.3 pg High 27.0-32.[address] [facility] Comment on above: Performed By: #### L 500.4050, L100.0100, L500.4100, L501.2300 ####[facility] [address] [place], [address] MCHC (RBC) [Mass/Vol] 33.2 g/dL Normal 32-36 [facility] Comment on above: Performed By: #### L 500.4050, L100.0100, L500.4100, L501.2300 ####[facility] [address] [place], [address] MCV (RBC) [Entitic vol] 97.4 fL Normal 81-99 [facility] Comment on above: Performed By: #### L 500.4050, L100.0100, L500.4100, L501.2300 ####[facility] [address] [place], [address] Monocytes/100 WBC (Bld) 2.6 % Normal 0-10 [facility] Comment on above: Performed By: #### L 500.4050, L100.0100, L500.4100, L501.2300 ####[facility] [address] [place], [address] Neutrophils/100 WBC (Bld) 92.6 % High 47-[address] [facility] Comment on above: Performed By: #### L 500.4050, L100.0100, L500.4100, L501.2300 ####[facility] [address] [place], [address] Nucleated RBC (Bld) [#/Vol] 0 10*3/uL Normal 0-[address] [facility] Comment on above: Performed By: #### L 500.4050, L100.0100, L500.4100, L501.2300 ####[facility] [address] [place], [address] Platelet mean volume (Bld) [Entitic vol] 10.3 fL Normal 6.2-12.[address] [facility] Comment on above: Performed By: #### L 500.4050, L100.0100, L500.4100, L501.2300 ####[facility] [address] [place], [address] Platelets (Bld) [#/Vol] 307 10*3/uL Normal 150-[address] [facility] Comment on above: Performed By: #### L 500.4050, L100.0100, L500.4100, L501.2300 ####[facility] [address] [place], [address] RBC (Bld) [#/Vol] 4.21 10*6/uL Normal 4.2-5.4 [facility] Comment on above: Performed By: #### L 500.4050, L100.0100, L500.4100, L501.2300 ####[facility] [address] [place], [address] RDW SD 51.1 fl High 35.1-43.[address] [facility] Comment on above: Performed By: #### L 500.4050, L100.0100, L500.4100, L501.2300 ####[facility] [address] [place], [address] WBC (Bld) [#/Vol] 17.0 10*3/uL High 4.4-11.0 [facility] Comment on above: Performed By: #### L 500.4050, L100.0100, L500.4100, L501.2300 ####[facility] [address] [place], [address] Calculated very low density lipoprotein (VLDL) cholesterol measurementOrdered By: Sergio Whalen on 07-21-2024 Calculated very low density lipoprotein (VLDL) cholesterol measurement 45 mg/dL High 5-[address] [facility] Comprehensive Metabolic Prof ilon 07-21-2024 Albumin [Mass/Vol] 4.4 g/dL Normal 3.5-5.0 [facility] Comment on above: Performed By: #### L 500.4050, L100.0100, L500.4100, L501.2300 ####[facility] [address] [place], [address] Albumin/Globulin [Mass ratio] 1.6 {ratio} Normal 0.9-2.[address] [facility] Comment on above: Performed By: #### L 500.4050, L100.0100, L500.4100, L501.2300 ####[facility] [address] [place], [address] ALK PHOS 118 U/L High 35-[address] [facility] Comment on above: Performed By: #### L 500.4050, L100.0100, L500.4100, L501.2300 ####[facility] [address] [place], [address] ALT [Catalytic activity/Vol] 35 U/L Normal <=[address] [facility] Comment on above: Performed By: #### L 500.4050, L100.0100, L500.4100, L501.2300 ####[facility] [address] [place], [address] AST [Catalytic activity/Vol] 29 U/L Normal <=[address] [facility] Comment on above: Performed By: #### L 500.4050, L100.0100, L500.4100, L501.2300 ####[facility] [address] [place], [address] Bilirubin [Mass/Vol] 0.59 mg/dL Normal 0.00-1.30 [facility] Comment on above: Performed By: #### L 500.4050, L100.0100, L500.4100, L501.2300 ####[facility] [address] [place], [address] BUN/CRE 23.1 RATIO High 10-[address] [facility] Comment on above: Performed By: #### L 500.4050, L100.0100, L500.4100, L501.2300 ####[facility] [address] [place], [address] Calcium [Mass/Vol] 9.3 mg/dL Normal 7.6-11.0 [facility] Comment on above: Performed By: #### L 500.4050, L100.0100, L500.4100, L501.2300 ####[facility] [address] [place], [address] Chloride [Moles/Vol] 102 mmol/L Normal 98-108 [facility] Comment on above: Performed By: #### L 500.4050, L100.0100, L500.4100, L501.2300 ####[facility] [address] [place], [address] CO2 [Moles/Vol] 19.4 mmol/L Low 21.0-32.[address] [facility] Comment on above: Performed By: #### L 500.4050, L100.0100, L500.4100, L501.2300 ####[facility] [address] [place], [address] Creatinine [Mass/Vol] 0.99 mg/dL Normal 0.70-1.20 [facility] Comment on above: Performed By: #### L 500.4050, L100.0100, L500.4100, L501.2300 ####[facility] [address] [place], [address] ECRCL 62.62 ml/min Normal 50-[address] [facility] Comment on above: Performed By: #### L 500.4050, L100.0100, L500.4100, L501.2300 ####[facility] [address] [place], [address] GAP 14 Normal 5-[address] [facility] Comment on above: Performed By: #### L 500.4050, L100.0100, L500.4100, L501.2300 ####[facility] [address] [place], [address] GFR/1.73 sq M.predicted among non-blacks MDRD (S/P/Bld) [Vol rate/Area] 72 mL/min/{1.73_m2} Normal >[address] [facility] Comment on above: Result Comment: mL/m in/1.73m2 CKD-EPI Creatinine Equation (2020) Performed By: #### L 500.4050, L100.0100, L500.4100, L501.2300 ####[facility] [address] [place], [address] Globulin (S) [Mass/Vol] 2.6 g/dL Normal 2.2-4.2 [facility] Comment on above: Performed By: #### L 500.4050, L100.0100, L500.4100, L501.2300 ####[facility] [address] [place], [address] Glucose [Mass/Vol] 131 mg/dL High 70-99 [facility] Comment on above: Performed By: #### L 500.4050, L100.0100, L500.4100, L501.2300 ####[facility] [address] [place], [address] Potassium [Moles/Vol] 4.8 mmol/L Normal 3.3-5.1 [facility] Comment on above: Performed By: #### L 500.4050, L100.0100, L500.4100, L501.2300 ####[facility] [address] [place], [address] Sodium [Moles/Vol] 135 mmol/L Normal 133-145 [facility] Comment on above: Performed By: #### L 500.4050, L100.0100, L500.4100, L501.2300 ####[facility] [address] [place], [address] T PROT 7.0 g/dL Normal 5.9-8.[address] [facility] Comment on above: Performed By: #### L 500.4050, L100.0100, L500.4100, L501.2300 ####[facility] [address] [place], [address] Urea nitrogen [Mass/Vol] 23 mg/dL High 4-[address] [facility] Comment on above: Performed By: #### L 500.4050, L100.0100, L500.4100, L501.2300 ####[facility] [address] [place], [address] Consultation - Cardiologyon 07-21-2024 Consultation - Cardiology Normal [facility] Echo Completeon 07-21-2024 Echo Complete Normal [facility] Echocardiogram study reportO rdered By: Saman Clay on 07-21-2024 Study report [facility] Cardiovascular Services [place] [address] Echo Complete 07/21/24 1046 MR#: [id number] Acct: [id number] Name: MICHELLE MITCHELL Rep #:[id number] 1 : 1980 43 From: Saman Clay MD Attending Dr: Dr. Willian Ovalles, Status: ADM IN Ordering Dr: Sergio Umaña DO Date: 07/21/24 Location: [facility] Sex: F C Admitted: 07/21/24 Reason For Study Reason For Study: CHF Procedure This was a 2D Doppler, Color Flow transthoracic echocardiogram. Myocardial strain analysis was performed in this exam to aid in the assessment of cardiac function. Exam performed portable in patient room. Left Ventricle Mild concentric left ventricular hypertrophy. Normal LV size. Generalized LV hypokinesis. Estimated LVEF 35%. Stage II diastolic dysfunction. Right Ventricle Normal right ventricle. ICD or pacer leads identified within the right ventricle. Atria The left atrium is severely enlarged. The right atrium is mildly enlarged. Suspect vegetation on the atrial side of the ICD wire. Mitral Valve Mild (1+) mitral valve insufficiency. Tricuspid Valve Moderate (2+) tricuspid valve insufficiency. Right ventricular systolic pressureestimated to be 77 mmHg. Aortic Valve Trisinus/trileaflet aortic valve. Pulmonic Valve The pulmonic valve is not well visualized. Great Vessels Normal sized aortic root. Pericardium/Pleural No pericardial effusion. MMode/2D Measurements & Calculations LVIDd: 4.8 cm IVSd: 1.2 cm Ao root diam: 2.5 cm LVIDs: 4.0 cm LVPWd: 0.84 cm RVDd: 3.8 cm FS: 15.8 % LAV(MOD-bp): 74.6 ml LVAd ap4: 25.2 cm2 LVAd ap2: 22.2 cm2 LAV(MOD-bp) Indexed: 44.7 ml/m2 LVLd ap4: 6.7 cm LVLd ap2: 6.8 cm LAV(MOD-sp2): 62.4 ml EDV(MOD-sp4): 74.1 ml EDV(MOD-sp2): 62.5 ml LAV(MOD-sp4): 86.2 ml EDV(sp4-el): 80.2 ml EDV(sp2-el): 62.1 ml LVAs ap4: 18.8 cm2 LVAs ap2: 16.5 cm2 LVLs ap4: 6.5 cm LVLs ap2: 6.1 cm ESV(MOD-sp4): 46.8 ml ESV(MOD-sp2): 39.4 ml ESV(sp4-el): 46.4 ml ESV(sp2-el): 37.6 ml EF(MOD-sp4): 36.8 % EF(MOD-sp2): 36.9 % EF(sp4-el): 42.1 % _ SV(MOD-sp4): 27.3 ml SV(MOD-sp2): 23.1 ml SV(sp4-el): 33.7 ml SI(MOD-sp4): 16.3 ml/m2 SI(MOD-sp2): 13.8 ml/m2 LA A4 area: 26.5 cm2 LA dimension(2D): 4.8 cm RA A4 area: 21.3 cm2 TAPSE: 1.4 cm Doppler Measurements & Calculations MV E max carrington: 37.0 cm/sec Lat Peak E' Carrington: 3.4 cm/sec Med Peak E' Carrington: 2.9 cm/sec MV A max carrington: 28.5 cm/sec E/E' lat: 10.7 E/E' med: 12.9 MV E/A: 1.3 Ao V2 max: 87.6 cm/sec LV V1 max: 74.6 cm/sec PA V2 max: 70.2 cm/sec Ao max P.1 mmHg LV V1 max P.2 mmHg Ao V2 mean: 58.4 cm/sec LV V1 mean P.1 mmHg Ao mean P.6 mmHg LV V1 mean: 47.2 cm/sec Ao V2 VTI: 18.3 cm LV V1 VTI: 14.4 cm AV (velocity ratio): 0.79 _ TR max carrington: 394.0 cm/sec TR max P.1 mmHg ECHO/Echo Complete Interpretation Summary Mild concentric left ventricular hypertrophy. Generalized LV hypokinesis. Estimated LVEF 35%. Stage II diastolic dysfunction. 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 The left atrium is severely enlarged. Suspect vegetation on the atrial side of the ICD wire. Similar finding noted however on reviewing echocardiogram from 2023. Consider MICKI for further evaluation if clinically indicated. Mild (1+) mitral valve insufficiency. Moderate (2+) tricuspid valve insufficiency. Right ventricular systolic pressure estimated to be 77 mmHg. Severe pulmonary hypertension. Ordering Physician: Sergio Umaña Referring Physician: Dex Sutherland Performed By: Maru Kothari RDCS 07/21/246 Date _ Saman Clay MD CC: Dr. Sergio Umaañ DO; Dr. Willian Ovalles DO; Dr. Dex Sutherland MD ~ Date Dictated: 07/21/24 1046 Date Transcribed: 07/21/24 133 [employer] Department Supervisor: Signed [facility] Work Phone: Hemoglobin A1con 07-21-2024 HbA1c (Bld) [Mass fraction] 5.6 % Normal <=5.[address] [facility] Comment on above: Result Comment: Norm al < 5.7 % Prediabetic 5.7 - 6.4 % Diabetic >or= 6.5 % Please note range changes. Performed By: #### L 501.9520, L501.9985 ####[facility] [address] [place], [address] L499.0043on 07-21-2024 Trop T High Sen 37 ng/L High <=[address] [facility] Comment on above: Performed By: #### L 499.0043 ####[facility] [address] [place], [address] LDL calc ser/plasOrdered By: Sergio Whalen on 07-21-2024 Cholesterol in LDL [Mass/Vol] 92 mg/dL [facility] Comment on above: Ldbpnukqnk=916-194 m g/dL & Higher Wujy=246 mg/dL or greater Laboratory - Chemistry and C hemistry - challengeOrdered By: Sergio Whalen on 07-21-2024 AST [Catalytic activity/Vol] 29 U/L <[address] [facility] Lipid Profileon 07-21-2024 CHOL:HDL 4.[address] [facility] Comment on above: Performed By: #### L 500.4050, L100.0100, L500.4100, L501.2300 ####[facility] [address] [place], [address] Cholesterol [Mass/Vol] 177 mg/dL Normal <=200 [facility] Comment on above: Result Comment: Chol esterol level, Desirable <200 mg/dLBorderline high cholesterol 200-239 mg/dLHigh cholesterol >=240 mg/dLRecommendations of the NCEP Adult Treatment Panel for thefollowing risk-cutoff thresholds for the [place] Americanpulation. Performed By: #### L 500.4050, L100.0100, L500.4100, L501.2300 ####[facility] [address] [place], [address] Cholesterol in HDL [Mass/Vol] 40 mg/dL Normal [facility] Comment on above: Result Comment: Sophie onal Cholesterol Education Program (NCEP) guidelines:<40 mg/dL: Low HDL-cholesterol (major risk factor for CHD)>= 60 mg/dL: High HDL-cholesterol (negative risk factor forCHD)HDL-cholesterol is affected by a number of factors, e.g.smoking, exercise, hormones, sex and age. Performed By: #### L 500.4050, L100.0100, L500.4100, L501.2300 ####[facility] [address] [place], [address] Cholesterol in LDL [Mass/Vol] 92 mg/dL Normal [facility] Comment on above: Result Comment: Bord rfteht=689-769 mg/dL Higher Bavi=661 mg/dL or greater Performed By: #### L 500.4050, L100.0100, L500.4100, L501.2300 ####[facility] [address] [place], [address] Cholesterol in VLDL [Mass/Vol] 45 mg/dL High 5-[address] [facility] Comment on above: Performed By: #### L 500.4050, L100.0100, L500.4100, L501.2300 ####[facility] [address] [place], [address] Triglyceride [Mass/Vol] 224 mg/dL High [facility] Comment on above: Result Comment: The drugs N-Acetylcysteine and Metamizole may falselydepress this assay.Normal range: <150 mg/dLBorderline High: 150-199 mg/dLHigh: 200-499 mg/dLVery High: >500 mg/dL Performed By: #### L 500.4050, L100.0100, L500.4100, L501.2300 ####[facility] [address] [place], [address] Magnesiumon 07-21-2024 Magnesium [Mass/Vol] 1.9 mg/dL Normal 1.5-2.2 [facility] Comment on above: Performed By: #### L 501.5200 ####[facility] [address] [place], [address] No Panel InformationOrdered By: Sergio Whalen on 07-21-2024 29 U/L <[address] [facility] Phosphoruson 07-21-2024 Phosphate [Mass/Vol] 3.7 mg/dL Normal 2.7-4.5 [facility] Comment on above: Performed By: #### L 500.4050, L100.0100, L500.4100, L501.2300 ####[facility] [address] [place], [address] Screening total cholesterol/ high density lipoprotein (HDL) cholesterol ratioOrdered By: Sergio Whalen on 07-21-2024 Cholesterol.total/Choles terol in HDL [Mass ratio] 4.43 {ratio} [facility] Serum globulin measurementOr dered By: Sergio Whalen on 07-21-2024 Globulin (S) [Mass/Vol] 2.6 g/dL 2.2-4.2 [facility] Serum or plasma alanine hair otransferase (ALT) measurementOrdered By: Serigo Whalen on 07-21-2024 ALT [Catalytic activity/Vol] 35 U/L <[address] [facility] Serum or plasma albumin leslie urement (mass/volume)Ordered By: Sergio Whalen on 07-21-2024 Albumin [Mass/Vol] 4.4 g/dL 3.5-5.0 [facility] Serum or plasma albumin/glob ulin mass ratioOrdered By: Sergio Whalen on 07-21-2024 Albumin/Globulin [Mass ratio] 1.6 {ratio} 0.9-2.[address] [facility] Serum or plasma alkaline delfin sphatase measurementOrdered By: Sergio Whalen on 07-21-2024 ALP [Catalytic activity/Vol] 118 U/L High 35-[address] [facility] Serum or plasma cholesterol in HDL measurement (mass/volume)Ordered By: Sergio Whalen on 07-21-2024 Cholesterol in HDL [Mass/Vol] 40 mg/dL >[address] [facility] Comment on above: National Cholesterol Education Program (NCEP) guidelines:<40 mg/dL: Low HDL-cholesterol (major risk factor for CHD)>= 60 mg/dL: High HDL-cholesterol (negative risk factor for CHD)HDL-cholesterol is affected by a number of factors, e.g. smoking, exercise, hormones, sex and age. Serum or plasma cholesterol measurement (mass/volume)Ordered By: Sergio Whalen on 07-21-2024 Cholesterol [Mass/Vol] 177 mg/dL <201 [facility] Comment on above: Cholesterol level, D esirable <200 mg/dLBorderline high cholesterol 200-239 mg/dLHigh cholesterol >=240 mg/dLRecommendations of the NCEP Adult Treatment Panel for the following risk-cutoff thresholds for the [place] population. Thyroid Stim Hormone (TSH)on 07-21-2024 TSH 1.400 uIU/mL Normal 0.300-4.[address] [facility] Comment on above: Order Comment: ADD O N Performed By: #### L 501.9520, L501.9985 ####[facility] [address] [place], [address] Total proteinOrdered By: Louis Whalen on 07-21-2024 Protein [Mass/Vol] 7.0 g/dL 5.9-8.4 [facility] Triglycerides measurementOrd ered By: Sergio Whalen on 07-21-2024 Triglyceride [Mass/Vol] 224 mg/dL High <199 [facility] Comment on above: The drugs N-Acetylcy steine and Metamizole may falsely depress this assay. Normal range: <150 mg/dLBorderline High: 150-199 mg/dLHigh: 200-499 mg/dLVery High: >500 mg/dL Venous Duplex US - Wan Extre mon 07-21-2024 Venous Duplex US - Wan Extrem Normal [facility] Abdomen/Pelvis W IV Cont ONL Yon 07-20-2024 Abdomen/Pelvis W IV Cont ONLY Normal [facility] Absolute lymphocyte countOrd ered By: Carlos Nair on 07-20-2024 Lymphocytes Auto (Unsp spec) [#/Vol] 0.38 10*3/uL Low 0.83-4.[address] [facility] Absolute neutrophil countOrd ered By: Carlos Nair on 07-20-2024 Neutrophils (Bld) [#/Vol] 13.6 10*3/uL High 2.0-7.[address] [facility] Anion gap in Serum or Plasma Ordered By: Carlos Nair on 07-20-2024 Anion gap [Moles/Vol] 13 mmol/L 5-15 [facility] Automated lymphocyte count a s percentage of total leukocytesOrdered By: Carlos Nair on 07-20-2024 Lymphocytes/100 WBC Auto (Unsp spec) 2.7 % Low 19-[address] [facility] BUN/creatinine ratioOrdered By: Carlos Nair on 07-20-2024 Urea nitrogen/Creatinine [Mass ratio] 21.8 mg/mg High 10-[address] [facility] Basophil percentageOrdered B y: Carlos Nair on 07-20-2024 Basophils/100 WBC (Bld) 0.1 % 0-1 [facility] Bilirubin Test strip Ql (U)O rdered By: Carlos Nair on 07-20-2024 Bilirubin Ql (U) Negative Negative [facility] Bilirubin directOrdered By: Carlos Nair on 07-20-2024 Bilirubin.direct [Mass/Vol] 0.29 mg/dL 0.00-0.[address] [facility] Bilirubin, totalOrdered By: Carlos Nair on 07-20-2024 Bilirubin [Mass/Vol] 0.61 mg/dL 0.00-1.30 [facility] CBC W/Diff, Automatedon Absolute Lymph 0.38 X10 3/uL Low 0.83-4.[address] [facility] Comment on above: Performed By: #### L 300.8000, L100.0100, L501.2450, L500.4050, L500.3400, L503.7505 ####[facility] [address] [place], [place], [address] Absolute Neut 13.6 X10 3/uL High 2.0-7.[address] [facility] Comment on above: Performed By: #### L 300.8000, L100.0100, L501.2450, L500.4050, L500.3400, L503.7505 ####[facility] [address] [place], [address] Basophils/100 WBC (Bld) 0.1 % Normal 0-1 [facility] Comment on above: Performed By: #### L 300.8000, L100.0100, L501.2450, L500.4050, L500.3400, L503.7505 ####[facility] [address] [place], [address] Eosinophils/100 WBC (Bld) 0.0 % Normal 0-[address] [facility] Comment on above: Performed By: #### L 300.8000, L100.0100, L501.2450, L500.4050, L500.3400, L503.7505 ####[facility] [address] [place], [address] Erythrocyte distribution width (RBC) [Ratio] 14.1 % Normal 11.6-14.[address] [facility] Comment on above: Performed By: #### L 300.8000, L100.0100, L501.2450, L500.4050, L500.3400, L503.7505 ####[facility] [address] [place], [address] Hematocrit (Bld) [Volume fraction] 40.2 % Normal 37-[address] [facility] Comment on above: Performed By: #### L 300.8000, L100.0100, L501.2450, L500.4050, L500.3400, L503.7505 ####[facility] [address] [place], [address] Hemoglobin (Bld) [Mass/Vol] 13.2 g/dL Normal 12.0-15.[address] [facility] Comment on above: Performed By: #### L 300.8000, L100.0100, L501.2450, L500.4050, L500.3400, L503.7505 ####[facility] [address] [place], [address] IG% 1.000 High 0.0-0.[address] [facility] Comment on above: Result Comment: IG% - Immature Granulocytes (promyelocytes, myelocytes andmetamyelocytes) > 1% indicates that a LEFT SHIFT is Present. Performed By: #### L 300.8000, L100.0100, L501.2450, L500.4050, L500.3400, L503.7505 ####[facility] [address] [place], [address] Lymphocytes/100 WBC (Bld) 2.7 % Low 19-[address] [facility] Comment on above: Performed By: #### L 300.8000, L100.0100, L501.2450, L500.4050, L500.3400, L503.7505 ####[facility] [address] [place], [address] MCH (RBC) [Entitic mass] 32.1 pg High 27.0-32.[address] [facility] Comment on above: Performed By: #### L 300.8000, L100.0100, L501.2450, L500.4050, L500.3400, L503.7505 ####[facility] [address] [place], [address] MCHC (RBC) [Mass/Vol] 32.8 g/dL Normal 32-36 [facility] Comment on above: Performed By: #### L 300.8000, L100.0100, L501.2450, L500.4050, L500.3400, L503.7505 ####[facility] [address] [place], [address] MCV (RBC) [Entitic vol] 97.8 fL Normal 81-99 [facility] Comment on above: Performed By: #### L 300.8000, L100.0100, L501.2450, L500.4050, L500.3400, L503.7505 ####[facility] [address] [place], [address] Monocytes/100 WBC (Bld) 1.5 % Normal 0-10 [facility] Comment on above: Performed By: #### L 300.8000, L100.0100, L501.2450, L500.4050, L500.3400, L503.7505 ####[facility] [address] [place], [address] Neutrophils/100 WBC (Bld) 94.7 % High 47-[address] [facility] Comment on above: Performed By: #### L 300.8000, L100.0100, L501.2450, L500.4050, L500.3400, L503.7505 ####[facility] [address] [place], [address] Nucleated RBC (Bld) [#/Vol] 0 10*3/uL Normal 0-[address] [facility] Comment on above: Performed By: #### L 300.8000, L100.0100, L501.2450, L500.4050, L500.3400, L503.7505 ####[facility] [address] [place], [address] Platelet mean volume (Bld) [Entitic vol] 10.3 fL Normal 6.2-12.[address] [facility] Comment on above: Performed By: #### L 300.8000, L100.0100, L501.2450, L500.4050, L500.3400, L503.7505 ####[facility] [address] [place], [address] Platelets (Bld) [#/Vol] 303 10*3/uL Normal 150-[address] [facility] Comment on above: Performed By: #### L 300.8000, L100.0100, L501.2450, L500.4050, L500.3400, L503.7505 ####[facility] [address] [place], [address] RBC (Bld) [#/Vol] 4.11 10*6/uL Low 4.2-5.4 [facility] Comment on above: Performed By: #### L 300.8000, L100.0100, L501.2450, L500.4050, L500.3400, L503.7505 ####[facility] [address] [place], [address] RDW SD 51.0 fl High 35.1-43.[address] [facility] Comment on above: Performed By: #### L 300.8000, L100.0100, L501.2450, L500.4050, L500.3400, L503.7505 ####[facility] [address] [place], [address] WBC (Bld) [#/Vol] 14.3 10*3/uL High 4.4-11.0 [facility] Comment on above: Performed By: #### L 300.8000, L100.0100, L501.2450, L500.4050, L500.3400, L503.7505 ####[facility] [address] [place], [address] CTA Chest W/WO Contraston CTA Chest W/WO Contrast Normal [facility] Carbon dioxide, total [Moles /volume] in Central venous bloodOrdered By: Carlos Nair on 07-20-2024 CO2 [Moles/Vol] 19.0 mmol/L Low 21.0-32.[address] [facility] Chest 1 View (Portable)on Chest 1 View (Portable) Normal [facility] Chloride assayOrdered By: Brandy Nair on 07-20-2024 Chloride [Moles/Vol] 104 mmol/L 98-108 [facility] Comprehensive Metabolic Prof ilon 07-20-2024 Albumin/Globulin [Mass ratio] 1.7 {ratio} Normal 0.9-2.[address] [facility] Comment on above: Performed By: #### L 300.8000, L100.0100, L501.2450, L500.4050, L500.3400, L503.7505 ####[facility] [address] [place], [address] BUN/CRE 21.8 RATIO High 10-[address] [facility] Comment on above: Performed By: #### L 300.8000, L100.0100, L501.2450, L500.4050, L500.3400, L503.7505 ####[facility] [address] [place], [address] Calcium [Mass/Vol] 9.3 mg/dL Normal 7.6-11.0 [facility] Comment on above: Performed By: #### L 300.8000, L100.0100, L501.2450, L500.4050, L500.3400, L503.7505 ####[facility] [address] [place], [address] Chloride [Moles/Vol] 104 mmol/L Normal 98-108 [facility] Comment on above: Performed By: #### L 300.8000, L100.0100, L501.2450, L500.4050, L500.3400, L503.7505 ####[facility] [address] [place], [address] CO2 [Moles/Vol] 19.0 mmol/L Low 21.0-32.[address] [facility] Comment on above: Performed By: #### L 300.8000, L100.0100, L501.2450, L500.4050, L500.3400, L503.7505 ####[facility] [address] [place], [address] Creatinine [Mass/Vol] 0.88 mg/dL Normal 0.70-1.20 [facility] Comment on above: Performed By: #### L 300.8000, L100.0100, L501.2450, L500.4050, L500.3400, L503.7505 ####[facility] [address] [place], [address] ECRCL 70.45 ml/min Normal 50-[address] [facility] Comment on above: Performed By: #### L 300.8000, L100.0100, L501.2450, L500.4050, L500.3400, L503.7505 ####[facility] [address] [place], [address] GAP 13 Normal 5-[address] [facility] Comment on above: Performed By: #### L 300.8000, L100.0100, L501.2450, L500.4050, L500.3400, L503.7505 ####[facility] [address] [place], [address] GFR/1.73 sq M.predicted among non-blacks MDRD (S/P/Bld) [Vol rate/Area] 83 mL/min/{1.73_m2} Normal >[address] [facility] Comment on above: Result Comment: mL/m in/1.73m2 CKD-EPI Creatinine Equation (2020) Performed By: #### L 300.8000, L100.0100, L501.2450, L500.4050, L500.3400, L503.7505 ####[facility] [address] [place], [address] Glucose [Mass/Vol] 171 mg/dL High 70-99 [facility] Comment on above: Performed By: #### L 300.8000, L100.0100, L501.2450, L500.4050, L500.3400, L503.7505 ####[facility] [address] [place], [address] Potassium [Moles/Vol] 4.4 mmol/L Normal 3.3-5.1 [facility] Comment on above: Performed By: #### L 300.8000, L100.0100, L501.2450, L500.4050, L500.3400, L503.7505 ####[facility] [address] [place], [address] Sodium [Moles/Vol] 135 mmol/L Normal 133-145 [facility] Comment on above: Performed By: #### L 300.8000, L100.0100, L501.2450, L500.4050, L500.3400, L503.7505 ####[facility] [address] [place], [address] Urea nitrogen [Mass/Vol] 19 mg/dL Normal 4-[address] [facility] Comment on above: Performed By: #### L 300.8000, L100.0100, L501.2450, L500.4050, L500.3400, L503.7505 ####[facility] [address] [place], [address] D-Dimer Quantitative (DVT/PE )on 07-20-2024 D-DIMER QUANT 1.06 FEU/ug/m Invalid Interpretation Code 0.27-0.[address] [facility] Comment on above: Result Comment: D-Di denice ELEVATED (>0.49): Additional studies and clinicalassessments are indicated to conclude diagnosis of:Deep Vein Thrombosis (DVT) or Pulmonary Embolism (PE)CRITICAL VALUE CALLED TO 07/20/24 Naga Aguilera.RESULTS READ BACK BY SAME. Performed By: #### L 300.8000, L100.0100, L501.2450, L500.4050, L500.3400, L503.7505 ####[facility] [address] [place], [address] Emergency Department Summary on 07-20-2024 Emergency Department Summary Normal [facility] Eosinophil percentageOrdered By: Carlos Nair on 07-20-2024 Eosinophils/100 WBC (Bld) 0.0 % 0-[address] [facility] Erythrocyte distribution wid th ratioOrdered By: Carlos Nair on 07-20-2024 Erythrocyte distribution width (RBC) [Ratio] 14.1 % 11.6-14.[address] [facility] Erythrocyte distribution wid th standard deviationOrdered By: Carlos Nair on 07-20-2024 Erythrocyte distribution width (RBC) [Ratio] 51.0 fl High 35.1-43.[address] [facility] Glomerular filtration rate ( GFR) estimation/1.73 sq m using serum, plasma, or whole bOrdered By: Carlos Nair on 07-20-2024 GFR/1.73 sq M.predicted among non-blacks MDRD (S/P/Bld) [Vol rate/Area] 83 mL/min/{1.73_m2} >[address] [facility] Comment on above: mL/min/1.73m2 CKD-EP I Creatinine Equation (2020) H AND P Exam - [place] 07-20-2024 H&P Exam - Hospitalist Normal [facility] Hematocrit Auto (Bld) [Volum e fraction]Ordered By: Carlos Nair on 07-20-2024 Hematocrit (Bld) [Volume fraction] 40.2 % 37-[address] [facility] Hemoglobin A1c percentageOrd ered By: Sergio Whalen on 07-20-2024 HbA1c (Bld) [Mass fraction] 5.6 % <5.[address] [facility] Comment on above: Normal < 5.7 % Predi abetic 5.7 - 6.4 % Diabetic >or= 6.5 % Please note range changes. Hemoglobin measurementOrdere d By: Carlos Nair on 07-20-2024 Hemoglobin (Bld) [Mass/Vol] 13.2 g/dL 12.0-15.[address] [facility] Hyaline casts LM.LPF (Urine sed) [#/Area]Ordered By: Carlos Nair on 07-20-2024 Hyaline casts (Urine sed) [#/Area] 5 /[LPF] 0-[address] [facility] Immature granulocytes/100 WB C Auto (Bld)Ordered By: Carlos Nair on 07-20-2024 Immature granulocytes/100 WBC (Bld) 1.000 % High 0.0-0.[address] [facility] Comment on above: IG% - Immature Granu locytes (promyelocytes, myelocytes and metamyelocytes) > 1% indicates that a LEFT SHIFT is Present. Ketones Test strip Ql (U)Ord ered By: Carlos Nair on 07-20-2024 Ketones Ql (U) Negative Negative [facility] L499.0042on 07-20-2024 Trop T High Sen 36 ng/L High <=[address] [facility] Comment on above: Performed By: #### L 499.0042 ####[facility] [address] [place], [address] L501.4021on 07-20-2024 Trop T High Sen 27 ng/L High <=[address] [facility] Comment on above: Performed By: #### L 501.4021 ####[facility] [address] [place], [address] L503.7505on 07-20-2024 Natriuretic peptide B (Bld) [Mass/Vol] 6468 pg/mL High <=[address] [facility] Comment on above: Result Comment: Hear t Failure Unlikely: < 300 pg/mLHeart Failure Likely< 50 Years: > 450 pg/mL50-75 Years: > 900 pg/mL>75 Years: > 1800 pg/mL Performed By: #### L 300.8000, L100.0100, L501.2450, L500.4050, L500.3400, L503.7505 ####[facility] [address] [place], [address] Laboratory - Chemistry and C hemistry - challengeOrdered By: Carlos Nair on 07-20-2024 AST [Catalytic activity/Vol] 26 U/L <[address] [facility] Lipaseon 07-20-2024 Lipase [Catalytic activity/Vol] 32 U/L Normal 13-[address] [facility] Comment on above: Result Comment: Liam rader note:LIPASE revised reference range effective 22.New Lipase methodology. Expected to produce lower valuesthan the previous assay method.NEW Reference Range: 13 - 75 U/L Performed By: #### L 300.8000, L100.0100, L501.2450, L500.4050, L500.3400, L503.7505 ####[facility] [address] [place], [address] Lipase measurementOrdered By : Carlos Nair on 07-20-2024 Lipase [Catalytic activity/Vol] 32 U/L 13-[address] [facility] Comment on above: Please note:LIPASE r evised reference range effective 22. New Lipase methodology. Expected to produce lower values than the previous assay method. NEW Reference Range: 13 - 75 U/L Liver Profileon 07-20-2024 Albumin [Mass/Vol] 4.3 g/dL Normal 3.5-5.0 [facility] Comment on above: Performed By: #### L 300.8000, L100.0100, L501.2450, L500.4050, L500.3400, L503.7505 ####[facility] [address] [place], [address] ALK PHOS 116 U/L High 35-[address] [facility] Comment on above: Performed By: #### L 300.8000, L100.0100, L501.2450, L500.4050, L500.3400, L503.7505 ####[facility] [address] [place], [address] ALT [Catalytic activity/Vol] 34 U/L Normal <=[address] [facility] Comment on above: Performed By: #### L 300.8000, L100.0100, L501.2450, L500.4050, L500.3400, L503.7505 ####[facility] [address] [place], [address] AST [Catalytic activity/Vol] 26 U/L Normal <=[address] [facility] Comment on above: Performed By: #### L 300.8000, L100.0100, L501.2450, L500.4050, L500.3400, L503.7505 ####[facility] [address] [place], [address] Bilirubin [Mass/Vol] 0.61 mg/dL Normal 0.00-1.30 [facility] Comment on above: Performed By: #### L 300.8000, L100.0100, L501.2450, L500.4050, L500.3400, L503.7505 ####[facility] [address] [place], [address] Bilirubin.direct [Mass/Vol] 0.29 mg/dL Normal 0.00-0.[address] [facility] Comment on above: Performed By: #### L 300.8000, L100.0100, L501.2450, L500.4050, L500.3400, L503.7505 ####[facility] [address] [place], [address] Globulin (S) [Mass/Vol] 2.5 g/dL Normal 2.2-4.2 [facility] Comment on above: Performed By: #### L 300.8000, L100.0100, L501.2450, L500.4050, L500.3400, L503.7505 ####[facility] [address] [place], [address] T PROT 6.8 g/dL Normal 5.9-8.[address] [facility] Comment on above: Performed By: #### L 300.8000, L100.0100, L501.2450, L500.4050, L500.3400, L503.7505 ####[facility] [address] [place], [address] MCV (mean corpuscular volume ) determinationOrdered By: Carlos Nair on 07-20-2024 MCV (RBC) [Entitic vol] 97.8 fL 81-99 [facility] Magnesium measurement (mass/ volume)Ordered By: Sergio Whalen on 07-20-2024 Magnesium (Unsp spec) [Mass/Vol] 1.9 mg/dL 1.5-2.[address] [facility] Mean corpuscular hemoglobin (MCH) determinationOrdered By: Carlos Nair on 07-20-2024 MCH (RBC) [Entitic mass] 32.1 pg High 27.0-32.[address] [facility] Mean corpuscular hemoglobin concentration (MCHC) determinationOrdered By: Carlos Nair on 07-20-2024 MCHC (RBC) [Mass/Vol] 32.8 g/dL 32-36 [facility] Mean platelet volume determi nationOrdered By: Carlos Nair on 07-20-2024 Platelet mean volume (Bld) [Entitic vol] 10.3 fL 6.2-12.[address] [facility] Microscopic analysis of urin e for red blood cells (RBC)Ordered By: Carlos Nair on 07-20-2024 Microscopic analysis of urine for red blood cells (RBC) 0-5 SEEN /hpf 0-[address] [facility] Monocyte percentageOrdered B y: Carlos Nair on 07-20-2024 Monocytes/100 WBC (Bld) 1.5 % 0-10 [facility] Mucus LM Ql (Urine sed)Order ed By: Carlos Nair on 07-20-2024 Mucus Ql (Urine sed) 1+ /hpf [facility] Natriuretic peptide.B prohor abbey N-Terminal [Mass/volume] in Serum or PlasmaOrdered By: Carlos Nair on 07-20-2024 Natriuretic peptide.B prohormone N-Terminal [Mass/Vol] 6468 pg/mL High <[address] [facility] Comment on above: Heart Failure Unlike ly: < 300 pg/mLHeart Failure Likely< 50 Years: > 450 pg/mL50-75 Years: > 900 pg/mL>75 Years: > 1800 pg/mL Neutrophil percentageOrdered By: Carlos Nair on 07-20-2024 Neutrophils/100 WBC (Bld) 94.7 % High 47-[address] [facility] Nitrite Test strip Ql (U)Ord ered By: Carlos Nair on 07-20-2024 Nitrite Ql (U) Negative Negative [facility] Nucleated red blood cell per centageOrdered By: Carlos Nair on 07-20-2024 Nucleated RBC/100 WBC (Bld) [Ratio] 0 % 0-[address] [facility] Platelet countOrdered By: Brandy Nair on 07-20-2024 Platelets (Bld) [#/Vol] 303 10*3/uL 150-[address] [facility] Potassium measurement (mass/ volume)Ordered By: Carlos Nair on 07-20-2024 Potassium (Unsp spec) [Mass/Vol] 4.4 mmol/L 3.3-5.[address] [facility] ,Urineon 07-20-2024 Beta HCG ( test) Ql (U) Negative Normal [facility] Comment on above: Result Comment: Very dilute urine specimens, as indicated by a low specificgravity, may not contain industrial sales representative levels of hCG.If is still suspected, a first morning urinespecimen should be collected 48 hours later and tested. Performed By: #### L 400.0001, L400.7600 ####[facility] [address] [place], [place], [address] Protein Test strip Ql (U)Ord ered By: Carlos Nair on 07-20-2024 Protein Ql (U) 100 mg/dl High Negative [facility] RBC Auto (Bld) [#/Vol]Ordere d By: Carlos Nair on 07-20-2024 RBC (Bld) [#/Vol] 4.11 10*6/uL Low 4.2-5.4 [facility] Serum creatinine measurement (mass/volume)Ordered By: Carlos Nair on 07-20-2024 Creatinine [Mass/Vol] 0.88 mg/dL 0.70-1.20 [facility] Serum globulin measurementOr dered By: Carlos Nair on 07-20-2024 Globulin (S) [Mass/Vol] 2.5 g/dL 2.2-4.2 [facility] Serum glucose measurement (m ass/volume)Ordered By: Carlos Nair on 07-20-2024 Glucose [Mass/Vol] 171 mg/dL High 70-99 [facility] Serum or plasma alanine hair otransferase (ALT) measurementOrdered By: Carlos Nair on 07-20-2024 ALT [Catalytic activity/Vol] 34 U/L <[address] [facility] Serum or plasma albumin leslie urement (mass/volume)Ordered By: Carlos Nair on 07-20-2024 Albumin [Mass/Vol] 4.3 g/dL 3.5-5.0 [facility] Serum or plasma albumin/glob ulin mass ratioOrdered By: Carlos Nair on 07-20-2024 Albumin/Globulin [Mass ratio] 1.7 {ratio} 0.9-2.[address] [facility] Serum or plasma alkaline delfin sphatase measurementOrdered By: Carlos Nair on 07-20-2024 ALP [Catalytic activity/Vol] 116 U/L High 35-[address] [facility] Serum or plasma calcium leslie urement (mass/volume)Ordered By: Carlos Nair on 07-20-2024 Calcium [Mass/Vol] 9.3 mg/dL 7.6-11.0 [facility] Serum or plasma urea nitroge n measurement (mass/volume)Ordered By: Carlos Nair on 07-20-2024 Urea nitrogen [Mass/Vol] 19 mg/dL 4-[address] [facility] Sodium levelOrdered By: Andrae Nair on 07-20-2024 Sodium [Moles/Vol] 135 mmol/L 133-145 [facility] Squamous epithelial cells de tection in urine sediment by light microscopyOrdered By: Carlos Nair on 07-20-2024 Epithelial cells.squamous LM Ql (Urine sed) 5-10 SEEN /hpf 5-[address] [facility] TSH DL <= 0.005 mIU/L QnOrde red By: Sergio Whalen on 07-20-2024 TSH Qn 1.400 uIU/mL 0.300-4.[address] [facility] Total proteinOrdered By: Jacinto Nair on 07-20-2024 Protein [Mass/Vol] 6.8 g/dL 5.9-8.4 [facility] Troponin T.cardiac [Mass/vol ume] in Serum or Plasma by High sensitivity methodOrdered By: Carlos Nair on 07-20-2024 Troponin T.cardiac High sensitivity method [Mass/Vol] 37 ng/L High <[address] [facility] Troponin T.cardiac High sensitivity method [Mass/Vol] 36 ng/L High <[address] [facility] Troponin T.cardiac High sensitivity method [Mass/Vol] 27 ng/L High <[address] [facility] Urinalysis, Completeon 07-20 BACTERIA 2+ /hpf Normal None Seen [facility] Comment on above: Order Comment: CLEAN CATCH Performed By: #### L 400.0001, L400.7600 ####[facility] [address] [place], [address] CAST,HYALINE 5-10 SEEN Normal 0-[address] [facility] Comment on above: Order Comment: CLEAN CATCH Performed By: #### L 400.0001, L400.7600 ####[facility] [address] [place], [address] EPI,SQUAMOUS 5-10 SEEN Normal 5-[address] [facility] Comment on above: Order Comment: CLEAN CATCH Performed By: #### L 400.0001, L400.7600 ####[facility] [address] [place], [address] Mucus Ql (Urine sed) 1+ /hpf Normal [facility] Comment on above: Order Comment: CLEAN CATCH Performed By: #### L 400.0001, L400.7600 ####[facility] [address] [place], [address] RBC 0-5 SEEN Normal 0-[address] [facility] Comment on above: Order Comment: CLEAN CATCH Performed By: #### L 400.0001, L400.7600 ####[facility] [address] [place], [address] BILIRUBIN URINE Negative Normal Negative [facility] Comment on above: Order Comment: CLEAN CATCH Performed By: #### L 400.0001, L400.7600 ####[facility] [address] [place], [address] Clarity (U) Clear Normal Clear [facility] Comment on above: Order Comment: CLEAN CATCH Performed By: #### L 400.0001, L400.7600 ####[facility] [address] [place], [address] Color (U) Straw Normal Yellow [facility] Comment on above: Order Comment: CLEAN CATCH Performed By: #### L 400.0001, L400.7600 ####[facility] [address] [place], [address] GLUCOSE, UR Normal Normal Normal [facility] Comment on above: Order Comment: CLEAN CATCH Performed By: #### L 400.0001, L400.7600 ####[facility] [address] [place], [address] KETONE UR Negative Normal Negative [facility] Comment on above: Order Comment: CLEAN CATCH Performed By: #### L 400.0001, L400.7600 ####[facility] [address] [place], [address] LEUK ESTERASE Negative Normal Negative [facility] Comment on above: Order Comment: CLEAN CATCH Performed By: #### L 400.0001, L400.7600 ####[facility] [address] [place], [address] Nitrite Ql (U) Negative Normal Negative [facility] Comment on above: Order Comment: CLEAN CATCH Performed By: #### L 400.0001, L400.7600 ####[facility] [address] [place], [address] OCCULT BLOOD-UR 25 /ul Abnormal Negative [facility] Comment on above: Order Comment: CLEAN CATCH Performed By: #### L 400.0001, L400.7600 ####[facility] [address] [place], [address] pH UR 6.0 Normal 5.0 - 8.[address] [facility] Comment on above: Order Comment: CLEAN CATCH Performed By: #### L 400.0001, L400.7600 ####[facility] [address] [place], [address] PROT DIPSTX 100 mg/dl Abnormal Negative [facility] Comment on above: Order Comment: CLEAN CATCH Performed By: #### L 400.0001, L400.7600 ####[facility] [address] [place], [address] SP.GR. DIPSTX 1.020 Normal 1.002-1.[address] [facility] Comment on above: Order Comment: CLEAN CATCH Performed By: #### L 400.0001, L400.7600 ####[facility] [address] [place], [address] UROBILI Normal Normal Normal [facility] Comment on above: Order Comment: CLEAN CATCH Performed By: #### L 400.0001, L400.7600 ####[facility] [address] [place], [address] WBC 0 SEEN Normal 0-[address] [facility] Comment on above: Order Comment: CLEAN CATCH Performed By: #### L 400.0001, L400.7600 ####[facility] [address] [place], [address] Urine clarityOrdered By: Jacinto Nair on 07-20-2024 Clarity (U) Clear Clear [facility] Urine color determinationOrd ered By: Carlos Nair on 07-20-2024 Color (U) Straw Yellow [facility] Urine glucose detectionOrder ed By: Carlos Nair on 07-20-2024 Glucose Ql (U) Normal mg/dl Normal [facility] Urine leukocyte esterase det ection by dipstickOrdered By: Carlos Nair on 07-20-2024 Leukocyte esterase Test strip Ql (U) Negative Negative [facility] Urine pHOrdered By: Carlos mandel on 07-20-2024 pH (U) 6.0 [pH] 5.0 - 8.[address] [facility] Urine testOrdered By: Carlos Nair on 07-20-2024 HCG ( test) Ql (U) Negative [facility] Comment on above: Very dilute urine sp ecimens, as indicated by a low specificgravity, may not contain industrial sales representative levels of hCG. If is still suspected, a first morning urinespecimen should be collected 48 hours later and tested. Urine sediment bacteria coun t by microscopy (number/high power field)Ordered By: Carlos Nair on 07-20-2024 Bacteria LM.HPF (Urine sed) [#/Area] 2 /[HPF] None Seen [facility] Urine specific gravity measu rementOrdered By: Carlos Nair on 07-20-2024 Specific gravity (U) [Rel density] 1.020 1.002-1.[address] [facility] Urine urobilinogen measureme ntOrdered By: Carlos Nair on 07-20-2024 Urobilinogen Ql (U) Normal mg/dl Normal [facility] White blood cell (WBC) count Ordered By: Carlos Nair on 07-20-2024 WBC (Bld) [#/Vol] 14.3 10*3/uL High 4.4-11.0 [facility] White blood cell countOrdere d By: Carlos Nair on 07-20-2024 White blood cell count 0 SEEN /hpf 0-5 [facility] Colonoscopy Reporton 025 Colonoscopy Report Normal [facility] EGD Reporton 07-12-2024 EGD Report Normal [facility] MR/POSTOP.ANEon 07-12-2024 MR/POSTOP.ANE Normal [facility] MR/OFYULTWR2qw 07-12-2024 MR/POSTOPAN2 Normal [facility] Surgery Specimen Level Amber 07-12-2024 Surgery Specimen Level IV Normal [facility] Comment on above: Performed By: #### P SUIV ####[facility] [address] [place], [address] MR/PAT.ANEon 07-11-2024 MR/PAT.ANE Normal [facility] 12 Lead EKG performed by BMS on 07-10-2024 12 Lead EKG performed by BMS [facility] Cardiology [facility] MR/PAT.ANEon 07-10-2024 MR/PAT.ANE Normal [facility] CNDSon 07-08-2024 CNDS HNO ID: [id number] Author: DEX SUTHERLAND MD Service: Family Practice Author Type: Physician Type: Discharge Summary Filed: 07/10/2024 15:10 Note Text: DISCHARGE SUMMARY PATIENT NAME: Micehlle Mitchell Code Status: Prior Highest Readmission Risk Score: 26 The 30 day readmissions risk score is derived from an internally validated risk model which evaluates patient level characteristics, utilization history, medication orders and lab results up until the day of discharge. Patients with a score of 39 or above are considered highest risk for readmission. Specific patient level drivers will be listed at the bottom of the summary. Admission Information Admission Information ADMIT DATE: 07/04/2024 DISCHARGE DATE: 07/08/2024 MY DOCTORS AND MEDICAL TEAM: My Main Hospital Doctor: Dex Sutherland MD Primary Care Provider: Dex Sutherland MD My Medical Team Members: Treatment Team: Attending Provider: Dex Sutherland MD Consulting: Sergio De La Torre MD MY CONDITION AT DISCHARGE: Stable REASON I WAS IN THE HOSPITAL: abd pain SUMMARY OF WHAT HAPPENED WHILE I WAS IN THE HOSPITAL: you were admitted for abd pain and taken to EGD. There was irritation to your stomach, this was treated with medications both oral and iv. OTHER PROBLEMS/DIAGNOSIS: Principal Problem: Abdominal pain Active Problems: Leukocytosis Generalized abdominal pain Hepatomegaly Other ascites Resolved Problems: * No resolved hospital problems. * OPERATIONS PERFORMED WHILE IN THE HOSPITAL: None IMPORTANT TEST/PROCEDURES: EGD TEST RESULTS NOT AVAILABLE AT THIS TIME: No pending results Discharge Disposition Discharge Disposition: Home With Self Care Activity When You Leave the Hospital Resume pre-hospital activity Diet Instructions Resume your pre-hospital diet Call Your Doctor If Your temperature is greater than 101F Follow Up Appointments Follow-up Appointment When: In 1 week Patient/Parents to call for appointment?: Yes Dex Sutherland MD [phone] [facility] [address] PCP Requested Referral GENERAL: alert, no distress, cooperative SKIN: No rashes or lesions. OROPHARYNX: Oropharynx normal. NECK: no jugulovenous distention, supple LUNGS: Lungs clear to auscultation. CARDIAC: normal S1 and S2; no rubs, murmurs, or gallops ABDOMEN: Abdomen soft, non-tender. BS normal. No masses or organomegaly. EXTREMETIES: No deformities, cyanosis, edema, clubbing or skin discoloration. NEURO: Alert, oriented X 3, Gait normal. Motor and Sensation grossly intact., Treatment Team: Consulting: Sergio De La Torre MD FOLLOW-UP APPOINTMENTS ALREADY SCHEDULED WITH A [facility] PROVIDER: No future appointments. ALLERGIES Allergen Reactions Prozac [Fluoxetine * Other: See Comments suicidal ideations Ativan [Lorazepam] Vomiting Azithromycin Intolerance [place] Anaphylaxis [place] Anaphylaxis pickles Fish Anaphylaxis Levofloxacin In D5w Swelling, Itching IV site swollen, ceased after d/c, redness and itching at site Neurontin [Gabapent* Mental Status Change Shellfish Anaphylaxis Tigan [Trimethobenz* Anaphylaxis Ultram [Tramadol] Hives Pt states she also pukes a lot Vicodin [Hydrocodon* Shortness of Breath pt states that she is able to take percocet DISCHARGE MEDICATION: Medication List START taking these medications dicyclomine 10 mg capsule Commonly known as: BENTYL Take 1 capsule by mouth three times a day before meals. pantoprazole DR 40 mg tablet Commonly known as: PROTONIX Take 1 tablet by mouth two times a day before meals at 6 am and 4 pm. psyllium 3.4 gram packet Commonly known as: METAMUCIL Take 1 packet by mouth two times a day. sucralfate 1 gram tablet Commonly known as: CARAFATE Take 1 tablet by mouth two times a day before meals. CHANGE how you take these medications oxyCODONE IR 5 mg immediate release tablet Commonly known as: ROXICODONE Take 1 tablet by mouth every 6 hours as needed for pain for up to 5 days. What changed: how much to take when to take this CONTINUE taking these medications AMBIEN 10 mg Generic drug: zolpidem VENTOLIN HFA 90 mcg/actuation inhaler Generic drug: albuterol HFA vortioxetine 10 mg tablet Commonly known as: TRINTELLIX XANAX 0.5 mg tablet Generic drug: ALPRAZolam STOP taking these medications sulfamethoxazole-trimeth oprim 800-160 mg per tablet Commonly known as: BACTRIM DS Where to Get Your Medications These medications were sent to [facility] [place] [address] - [address] [place] [address] - [phone] [place], [place] [id number] dicyclomine 10 mg capsule oxyCODONE IR 5 mg immediate release tablet pantoprazole DR 40 mg tablet psyllium 3.4 gram packet sucralfate 1 gram tablet Additional Information Additional Health Information I Need to Kno (more content not included)... Normal [facility] CBC W Auto Differential pane l (Bld)on 07-07-2024 Basophils (Bld) [#/Vol] 0.03 10*3/uL Normal <0.11 [facility] Comment on above: Order Comment: Speci men Type: BLOOD SPECIMENOrdering Facility: [facility] Address: [address] [place] [address] Performed By: #### 5 7021-8 ####[facility] LABORATORYCLIA [id number] [place] [address] [place] Basophils/100 WBC (Bld) 0.3 % Normal [facility] Comment on above: Order Comment: Speci men Type: BLOOD SPECIMENOrdering Facility: [facility] Address: [address] [place] [address] Performed By: #### 5 7021-8 ####[facility] LABORATORYCLIA [id number] [place] [address] [place] Differential cell count method Nom (Bld) Auto Normal [facility] Comment on above: Order Comment: Speci men Type: BLOOD SPECIMENOrdering Facility: [facility] Address: [address] [place] [address] Performed By: #### 5 7021-8 ####[facility] LABORATORYCLIA [id number] [place] [address] [place] Eosinophils (Bld) [#/Vol] 0.12 10*3/uL Normal <0.46 [facility] Comment on above: Order Comment: Speci men Type: BLOOD SPECIMENOrdering Facility: [facility] Address: [address] [place] [address] Performed By: #### 5 7021-8 ####[facility] LABORATORYCLIA [id number] [address] [place] Eosinophils/100 WBC (Bld) 1.4 % Normal [facility] Comment on above: Order Comment: Speci men Type: BLOOD SPECIMENOrdering Facility: [facility] Address: [address] [place] [address] Performed By: #### 5 7021-8 ####[facility] LABORATORYCLIA [id number] [address] [place] Erythrocyte distribution width (RBC) [Ratio] 14.4 % Normal 11.5-15.0 [facility] Comment on above: Order Comment: Speci men Type: BLOOD SPECIMENOrdering Facility: [facility] Address: [address] [place] [address] Performed By: #### 5 7021-8 ####[facility] LABORATORYCLIA [id number] [address] [place] Hematocrit (Bld) [Volume fraction] 41.1 % Normal 36.0-46.0 [facility] Comment on above: Order Comment: Speci men Type: BLOOD SPECIMENOrdering Facility: [facility] Address: [address] [place] [address] Performed By: #### 5 7021-8 ####[facility] LABORATORYCLIA [id number] [address] [place] Hemoglobin (Bld) [Mass/Vol] 13.4 g/dL Normal 11.5-15.5 [facility] Comment on above: Order Comment: Speci men Type: BLOOD SPECIMENOrdering Facility: [facility] Address: [address] [place] [address] Performed By: #### 5 7021-8 ####[facility] LABORATORYCLIA [id number] [address] Immature granulocytes (Bld) [#/Vol] 0.03 10*3/uL Normal <0.10 [facility] Comment on above: Order Comment: Speci men Type: BLOOD SPECIMENOrdering Facility: [facility] Address: [address] [place] [address] Performed By: #### 5 7021-8 ####[facility] LABORATORYCLIA [id number] [address] [place] Immature granulocytes/100 WBC (Bld) 0.3 % Normal [facility] Comment on above: Order Comment: Speci men Type: BLOOD SPECIMENOrdering Facility: [facility] Address: [address] [place] [address] Performed By: #### 5 7021-8 ####[facility] LABORATORYCLIA [id number] [address] [place] Lymphocytes (Bld) [#/Vol] 0.98 10*3/uL Low 1.00-4.00 [facility] Comment on above: Order Comment: Speci men Type: BLOOD SPECIMENOrdering Facility: [facility] Address: [address] [place] [address] Performed By: #### 5 7021-8 ####[facility] LABORATORYCLIA [id number] [address] Lymphocytes/100 WBC (Bld) 11.1 % Normal [facility] Comment on above: Order Comment: Speci men Type: BLOOD SPECIMENOrdering Facility: [facility] Address: [address] [place] [address] Performed By: #### 5 7021-8 ####[facility] LABORATORYCLIA [id number] [place] [address] [place] MCH (RBC) [Entitic mass] 31.8 pg Normal 26.0-34.0 [facility] Comment on above: Order Comment: Speci men Type: BLOOD SPECIMENOrdering Facility: [facility] Address: [address] [place] [address] Performed By: #### 5 7021-8 ####[facility] LABORATORYCLIA [id number] [address] [place] MCHC (RBC) [Mass/Vol] 32.6 g/dL Normal 30.5-36.0 [facility] Comment on above: Order Comment: Speci men Type: BLOOD SPECIMENOrdering Facility: [facility] Address: [address] [place] [address] Performed By: #### 5 7021-8 ####[facility] LABORATORYCLIA [id number] [place] [address] [place] MCV (RBC) [Entitic vol] 97.6 fL Normal 80.0-100.0 [facility] Comment on above: Order Comment: Speci men Type: BLOOD SPECIMENOrdering Facility: [facility] Address: [address] [place] [address] Performed By: #### 5 7021-8 ####[facility] LABORATORYCLIA [id number] [place] [address] [place] Monocytes (Bld) [#/Vol] 0.44 10*3/uL Normal <0.87 [facility] Comment on above: Order Comment: Speci men Type: BLOOD SPECIMENOrdering Facility: [facility] Address: [address] [place] [address] Performed By: #### 5 7021-8 ####[facility] LABORATORYCLIA [id number] [address] Monocytes/100 WBC (Bld) 5.0 % Normal [facility] Comment on above: Order Comment: Speci men Type: BLOOD SPECIMENOrdering Facility: [facility] Address: [address] [place] [address] Performed By: #### 5 7021-8 ####[facility] LABORATORYCLIA [id number] [place] [address] [place] Neutrophils (Bld) [#/Vol] 7.19 10*3/uL Normal 1.45-7.50 [facility] Comment on above: Order Comment: Speci men Type: BLOOD SPECIMENOrdering Facility: [facility] Address: [address] [place] [address] Performed By: #### 5 7021-8 ####[facility] LABORATORYCLIA [id number] [place] [address] [place] Neutrophils/100 WBC (Bld) 81.9 % Normal [facility] Comment on above: Order Comment: Speci men Type: BLOOD SPECIMENOrdering Facility: [facility] Address: [address] [place] [address] Performed By: #### 5 7021-8 ####[facility] LABORATORYCLIA [id number] [place] [address] [place] Nucleated RBC (Bld) [#/Vol] 10*3/uL Normal <0.01 [facility] Comment on above: Order Comment: Speci men Type: BLOOD SPECIMENOrdering Facility: [facility] Address: [address] [place] [address] Performed By: #### 5 7021-8 ####[facility] LABORATORYCLIA [id number] [address] [place] Nucleated RBC/100 WBC (Bld) [Ratio] 0.0 /100 WBC Normal [facility] Comment on above: Order Comment: Speci men Type: BLOOD SPECIMENOrdering Facility: [facility] Address: [address] [place] [address] Performed By: #### 5 7021-8 ####[facility] LABORATORYCLIA [id number] [place] [address] [place] Platelet mean volume (Bld) [Entitic vol] 10.3 fL Normal 9.0-12.7 [facility] Comment on above: Order Comment: Speci men Type: BLOOD SPECIMENOrdering Facility: [facility] Address: [address] [place] [address] Performed By: #### 5 7021-8 ####[facility] LABORATORYCLIA [id number] [place] [address] [place] Platelets (Bld) [#/Vol] 241 10*3/uL Normal 150-400 [facility] Comment on above: Order Comment: Speci men Type: BLOOD SPECIMENOrdering Facility: [facility] Address: [address] [place] [address] Performed By: #### 5 7021-8 ####[facility] LABORATORYCLIA [id number] [place] [address] [place] RBC (Bld) [#/Vol] 4.21 10*6/uL Normal 3.90-5.20 [facility] Comment on above: Order Comment: Speci men Type: BLOOD SPECIMENOrdering Facility: [facility] Address: [address] [place] [address] Performed By: #### 5 7021-8 ####[facility] LABORATORYCLIA [id number] [address] OF [facility] WBC (Bld) [#/Vol] 8.79 10*3/uL Normal 3.70-11.00 [facility] Comment on above: Order Comment: Speci men Type: BLOOD SPECIMENOrdering Facility: [facility] Address: [address] [place] [address] Performed By: #### 5 7021-8 ####[facility] LABORATORYCLIA [id number] [address] CONSULT PROGon 07-07-2024 CONSULT PROG HNO ID: [id number] Author: KAYLYN ELLIS MD Service: Gastroenterology Author Type: Physician Type: Consult Progress Note Filed: 07/07/2024 11:40 Note Text: GASTROENTEROLOGY CONSULT PROGRESS NOTE Patient Name: Michelle Mitchell SERVICE DATE: July 07, 2024 SERVICE TIME: 7:43 AM ASSESSMENT 1. Abdominal pain, nausea and vomiting 2. Mild hepatomegaly and ascites (most prominent in the pelvis) on CT 3. Elevated LFT's - now normal 4. Chronic diarrhea 5. Mild CBD dilation (up to 8mm diameter) 6. Leukocytosis - resolved 7. Frequent NSAID use 8. CHF / Fluid overload 9. FHx CRC (Sister) 10. PHx Breast Ca at age of 18 (s/p lumpectomy and chemotherapy) / Ovarian cancer s/p oophorectomy / Endometrial cancer s/p ablation 11. DVT/PE (not currently on anticoagulation) 12. Hypertrophic obstructive cardiomyopathy / ICD placement PLAN - Await HSV and EGD pathology - Pantoprazole 40 mg po twice daily / Carafate 1 Gm BID/AC - Metamucil 1 pkt BID / Start Dicyclomine 10 mg TID/AC - Heart healthy diet - Daily CBC and CMP - Attempt to obtain most recent colonoscopy report completed December 2023 at [facility] - Consider cardiology consult for #8 - Pacemaker check completed 07/05/2024 - Defer pain management to PCP Patient seen and examined. Discussed with mid level provider. Kim findings confirmed. Plan as outlined. F/U with established GI provider after discharge. Kaylyn Ellis MD July 07, 2024 11:39 AM INTERVAL HPI: Patient reports mild improvement in her abdominal pain. Feels as if bloating and abdominal distention / swelling is about the same. Nausea continues. No vomiting. Tolerating 50-75% of meals. Had a BM early this am. Stools remain looser consistency and with small volume BRB. [facility] colonoscopy records were incomplete as report was not sent however pathology was sent with no signs of colitis. PHYSICAL EXAM: Patient Vitals for the past 24 hrs: BP Temp Temp src Pulse Resp SpO2 07/07/24 0706 143/71 36.8 ?C (98.2 ?F) Oral 71 16 92 % 07/07/24 0418 135/75 36.7 ?C (98.1 ?F) Oral 75 16 95 % 07/06/24 1858 130/78 36.9 ?C (98.4 ?F) Oral 75 16 99 % 07/06/24 1619 -- -- -- 67 -- 100 % 07/06/24 1513 134/94 36.9 ?C (98.4 ?F) Oral 62 18 94 % 07/06/24 1151 -- -- -- (!) 58 -- 94 % 07/06/24 1051 -- -- -- -- -- 100 % 07/06/24 1044 140/86 36.7 ?C (98 ?F) Oral 67 16 100 % 07/06/24 1015 110/56 -- -- 60 21 92 % 07/06/24 1000 104/58 -- -- 66 25 92 % 07/06/24 0954 106/58 36 ?C (96.8 ?F) Temporal 69 22 92 % GENERAL: Alert AND oriented x 3. Cooperative. NAD EYES: No scleral icterus SKIN: [place] in color. No jaundice LUNGS: Decreased to auscultation anteriorly CARDIAC: RRR ABDOMEN: BS x 4. Abdomen soft, diffuse tenderness, mildly distended, no palpable masses or organomegaly. No guarding or rebound tenderness elicited EXTREMITIES: No upper or lower extremity edema MEDICATIONS: Current Facility-Administered Medications Medication Dose Route Frequency iv contrast (radiology procedure) INTRAVENOUS DIRECTED PRN ALPRAZolam 0.5 mg tab(s) (XANAX) 0.5 mg ORAL BID PRN zolpidem 10 mg tab(s) (AMBIEN) 10 mg ORAL AT BEDTIME albuterol 2.5 mg /3 mL (0.083 %) 2.5 mg (PROVENTIL) 3 mL INHALATION q 4 H PRN vortioxetine 10 mg tab(s) (TRINTELLIX) 10 mg ORAL DAILY oxyCODONE IR 5 mg tab(s) (ROXICODONE) 5 mg ORAL q 4 H PRN prochlorperazine 10 mg injection (COMPAZINE) 10 mg INTRAVENOUS q 6 H PRN ondansetron orally disintegrating 8 mg tab(s) (ZOFRAN ODT) 8 mg ORAL q 8 H PRN enoxaparin 40 mg injection (LOVENOX) 40 mg SUBCUTANEOUS q 24 HR NaCl 0.9% iv flush bag 20 mL INTRAVENOUS PRN HYDROmorphone 1 mg injection (DILAUDID) 1 mg INTRAVENOUS q 4 H PRN acetaminophen 650 mg tab(s) (TYLENOL) 650 mg ORAL q [address] 40 mg tab(s) (PROTONIX) 40 mg ORAL BID AC (0600/1600) sucralfate 1 g tab(s) (CARAFATE) 1 g ORAL BID AC psyllium 1 packet (METAMUCIL) 1 packet ORAL BID LABS: CBC, Coags, BMP, Mg, Phos Recent Labs 07/07/24 0557 07/06/24 0536 07/05/24 0516 WBC 8.79 9.08 12.18* HB 13.4 13.3 14.2 HCT 41.1 40.4 45.4 PLT 241 239 278 NA 139 138 141 K 4.1 3.9 4.1 CHLOR 104 102 104 CO2 25 25 27 BUN 7 9 12 CREAT 0.81 0.85 0.96 GLUC 104* 91 89 CA 9.0 9.2 9.1 Liver Function, Amylase, AND Lipase Recent Labs 07/07/24 0557 07/06/24 0536 07/05/24 0516 07/04/24 1630 TPROT 6.3 6.2* 6.9 6.8 ALB 3.7* 4.1 4.0 3.9 ALT 24 32 39* 40* AST 20 24 30 40* ALKPHOS 118 134* 132* 122 TBILI 1.3 1.3 1.0 0.6 0.7 LIPASE -- -- -- 26 MISC LABS 07/04/2024 Beta Hcg (-) Latest Ref Rng 07/04/2024 07/05/2024 Cholesterol, Total <200 mg/dL 172 Triglyceride <150 mg/dL 157 (H) HDL Cholesterol >39 mg/dL 36 (L) LDL Cholesterol, Calculated <100 mg/dL 108 (H) Non HDL Cholesterol <130 mg/dL 136 (H) VLDL Cholesterol <30 mg/dL 26 TC:HDL Ratio <5.10 4.78 LDL:HDL Ratio <2. (more content not included)... Normal [facility] Comprehensive metabolic 2000 panelon 07-07-2024 Albumin [Mass/Vol] 3.7 g/dL Low 3.9-4.9 [facility] Comment on above: Order Comment: Speci men Type: BLOOD SPECIMENOrdering Facility: [facility] Address: [address] [place] [address] Performed By: #### 2 4323-8 ####[facility] LABORATORYCLIA [id number] [place] [address] [place] ALP [Catalytic activity/Vol] 118 U/L Normal 34-123 [facility] Comment on above: Order Comment: Speci men Type: BLOOD SPECIMENOrdering Facility: [facility] Address: [address] [place] [address] Performed By: #### 2 4323-8 ####[facility] LABORATORYCLIA [id number] [place] [id number] [place] ALT [Catalytic activity/Vol] 24 U/L Normal 7-38 [facility] Comment on above: Order Comment: Speci men Type: BLOOD SPECIMENOrdering Facility: [facility] Address: [address] [place] [address] Performed By: #### 2 4323-8 ####[facility] LABORATORYCLIA [id number] [place] [address] [place] Anion gap [Moles/Vol] 10 mmol/L Normal 8-15 [facility] Comment on above: Order Comment: Speci men Type: BLOOD SPECIMENOrdering Facility: [facility] Address: [address] [place] [address] Performed By: #### 2 4323-8 ####[facility] LABORATORYCLIA [id number] [address] [place] AST [Catalytic activity/Vol] 20 U/L Normal 13-35 [facility] Comment on above: Order Comment: Speci men Type: BLOOD SPECIMENOrdering Facility: [facility] Address: [address] [place] [address] Performed By: #### 2 4323-8 ####[facility] LABORATORYCLIA [id number] [place] [address] [place] Bilirubin [Mass/Vol] 1.3 mg/dL Normal 0.2-1.3 [facility] Comment on above: Order Comment: Speci men Type: BLOOD SPECIMENOrdering Facility: [facility] Address: [address] [place] [address] Performed By: #### 2 4323-8 ####[facility] LABORATORYCLIA [id number] [place] [address] [place] Calcium [Mass/Vol] 9.0 mg/dL Normal 8.5-10.2 [facility] Comment on above: Order Comment: Speci men Type: BLOOD SPECIMENOrdering Facility: [facility] Address: [address] [place] [address] Performed By: #### 2 4323-8 ####[facility] LABORATORYCLIA [id number] [place] [address] [place] Chloride [Moles/Vol] 104 mmol/L Normal 98-107 [facility] Comment on above: Order Comment: Speci men Type: BLOOD SPECIMENOrdering Facility: [facility] Address: [address] [place] [address] Performed By: #### 2 4323-8 ####[facility] LABORATORYCLIA [id number] [place] [address] [place] CO2 [Moles/Vol] 25 mmol/L Normal 22-30 [facility] Comment on above: Order Comment: Speci men Type: BLOOD SPECIMENOrdering Facility: [facility] Address: [address] [place] [address] Performed By: #### 2 4323-8 ####[facility] LABORATORYCLIA [id number] [address] Creatinine [Mass/Vol] 0.81 mg/dL Normal 0.58-0.96 [facility] Comment on above: Order Comment: Kianai men Type: BLOOD SPECIMENOrdering Facility: [facility] Address: [address] [place] [address] Performed By: #### 2 4323-8 ####[facility] LABORATORYCLIA [id number] [address] Creatinine and Glomerular filtration rate.predicted panel (S/P/Bld) 92 mL/min/1.73m??? Normal >=60 [facility] Comment on above: Order Comment: David sol Type: BLOOD SPECIMENOrdering Facility: [facility] Address: [address] [place] [address] Result Comment: Sandie mated Glomerular Filtration Rate (eGFR) is calculated using the 2020 CKD-EPI creatinine equation. This equation utilizes serum creatinine, sex, and age as parameters. The creatinine assay has traceable calibration to isotope dilution-mass spectrometry. Refer to KDIGO guidelines for clinical interpretation. In patients with unstable renal function, e.g. those with acute kidney injury, the eGFR may not accurately reflect actual GFR. Performed By: #### 2 4323-8 ####[facility] LABORATORYCLIA [id number] [address] [place] Glucose [Mass/Vol] 104 mg/dL High 74-99 [facility] Comment on above: Order Comment: David horton Type: BLOOD SPECIMENOrdering Facility: [facility] Address: [address] [place] [address] Result Comment: The [place] Diabetes Association (ADA) provides guidance for cutoff values for fasting glucose and random glucose. The ADA defines fasting as no caloric intake for at least 8 hours. Fasting plasma glucose results between 100 to 125 mg/dL indicate increased risk for diabetes (prediabetes). Fasting plasma glucose results greater than or equal to 126 mg/dL meet the criteria for diagnosis of diabetes. In the absence of unequivocal hyperglycemia, results should be confirmed by repeat testing. In a patient with classic symptoms of hyperglycemia or hyperglycemic crisis, random plasma glucose results greater than or equal to 200 mg/dL meet the criteria for diagnosis of diabetes. Reference: Standards of Medical Care in Diabetes 2016, [place] Diabetes Association. Diabetes Care. 2016.39(Suppl 1). Performed By: #### 2 4323-8 ####[facility] LABORATORYCLIA [id number] [place] [address] [place] Potassium [Moles/Vol] 4.1 mmol/L Normal 3.7-5.1 [facility] Comment on above: Order Comment: David horton Type: BLOOD SPECIMENOrdering Facility: [facility] Address: [address] [place] [address] Performed By: #### 2 4323-8 ####[facility] LABORATORYCLIA [id number] [place] [address] [place] Protein [Mass/Vol] 6.3 g/dL Normal 6.3-8.0 [facility] Comment on above: Order Comment: David horton Type: BLOOD SPECIMENOrdering Facility: [facility] Address: [address] [place], [place] [address] Performed By: #### 2 4323-8 ####[facility] LABORATORYCLIA [id number] [place] [address] [place] Sodium [Moles/Vol] 139 mmol/L Normal 136-144 [facility] Comment on above: Order Comment: David horton Type: BLOOD SPECIMENOrdering Facility: [facility] Address: [address] [place] [address] Performed By: #### 2 4323-8 ####[facility]ORATORYCLIA [id number] [place] [address] [place] Urea nitrogen [Mass/Vol] 7 mg/dL Normal 7- [facility] Comment on above: Order Comment: Speci men Type: BLOOD SPECIMENOrdering Facility: [facility] Address: [facility] [place] [address] Performed By: #### 2 4323-8 ####[facility] LABORATORYCLIA [id number] [place] [address] [place] ANES POSTPROC EVALon 025 ANES POSTPROC EVAL HNO ID: [id number] Author: MARVA CHEUNG MD Service: Anesthesiology Author Type: Anesthesiologist Type: Anesthesia Postprocedure Evaluation Filed: 07/06/2024 10:50 Note Text: POST ANESTHESIA EVALUATION NOTE : 1980 Procedure Summary Date: 07/06/24 Room / Location: [facility] Anesthesia Start: 934 Anesthesia Stop: 954 Procedure: EGD DIAGNOSTIC Diagnosis: (Abdominal pain) Scheduled Providers: Kaylyn Ellis MD; Eliana Ellis APRN.DOOR AND ARRIVAL ATTENDANT; Marva Cheung MD Responsible Provider: Marva Cheung MD Anesthesia Type: MAC ASA Status: 3 - Emergent Anesthesia Type: MAC Last Vitals Vitals Value Taken Time BP 140/86 07/06/24 1044 Temp 36 ?C (96.8 ?F) 07/06/24 0954 HR SpO2 69 07/06/24 0954 Resp 16 07/06/24 1044 SpO2 100 % 07/06/24 1044 Post Anesthesia Patient Status Patient Evaluation: PACU. PACU/ICU Patient Condition: stable. Anticipated Disposition: inpatient floor planned admission. Neurological Status: aware and responsive. Pulmonary Status: breathing comfortably on room air Airway Control: returned to baseline unsupported. Cardiovascular Status: stable. Pain Management: clinically adequate - multimodal analgesia pain management approach Postoperative Hydration: acceptable. Intraoperative Events: no significant anesthesia events Post Operative Nausea/Vomiting Status: no significant post operative nausea or vomiting Recommendation: continue current plan of care and further care per PACU/ICU/floor team. Anesthesia Observations No Documentation SIGNATURE: Marva Cheung MD PATIENT NAME: Michelle Mitchell DATE: July 06, 2024 TIME: 10:50 AM CSN: [id number] Normal [facility] ANES PRE-OPon 07-06-2024 ANES PRE-OP HNO ID: [id number] Author: MARVA CHEUNG MD Service: Anesthesiology Author Type: Anesthesiologist Type: Anesthesia Preprocedure Evaluation Filed: 07/06/2024 09:18 Note Text: ANESTHESIOLOGY DAY OF SURGERY NOTE : 1980 Procedure Information Date/Time: 07/06/24 1000 Scheduled providers: Kaylyn Ellis MD; Eliana Ellis APRN.DOOR AND ARRIVAL ATTENDANT; Marva Cheung MD Procedure: EGD DIAGNOSTIC Location: [facility] Estimated body mass index is 22.78 kg/m? as calculated from the following: Height as of this encounter: 162.6 cm (5' 4). Weight as of this encounter: 60.2 kg (132 lb 11.5 oz). Most recent hematocrit and potassium results: Hematocrit 40.4 07/06/2024 Potassium 3.9 07/06/2024 Relevant Problems CARDIO (+) CHF (congestive heart failure) (HCC) (+) PE (pulmonary thromboembolism) (HCC) GI (+) Gastric ulcer (+) Gastroesophageal reflux disease -RENAL (+) Hepatomegaly NEURO-PSYCH (+) History of left breast cancer (+) Personal history of breast cancer I - PHYSICAL EVALUATION AIRWAY Patient intubated: No. Tracheostomy tube not present Mallampati: II. TM distance: >3 FB. Neck ROM: full ROM without neurological symptoms. Mouth opening: adequate. Short neck: no. Thick neck: no DENTAL Dental findings: teeth intact. Additional exam findings: yes. CARDIOVASCULAR Rhythm: regular PULMONARY Breath sounds clear to auscultation. II - ANESTHESIA PLAN ASA Score: 3; emergent. Anesthetic Plan: MAC The patient is not a current smoker. NPO Status: adequate Beta Krishan Monitoring Plan Monitoring plan: standard ASA. Post Procedure Analgesic Plan Postoperative analgesic plan: multimodal analgesia. Informed Consent Anesthetic risks, benefits, alternatives, personnel and consent discussed: yes. Patient / Responsible Alliance Party agrees to proceed: yes Patient / Surrogate agrees to blood products: blood products not planned DNR status not reviewed with patient and/or family prior to surgery. Significant changes in the patient condition since the History and Physical, not otherwise documented in primary service progress note: no. Potential Anesthesia issues that may suggest increased risk of complications or contraindication to planned procedure: none. No vitals data found for the desired time range. Facility-Administered Medications as of 07/06/2024 Medication Dose Route Frequency [Transfer Hold] acetaminophen 650 mg tab(s) (TYLENOL) 650 mg ORAL q 6 H PRN [Transfer Hold] pantoprazole 40 mg injection (PROTONIX) 40 mg INTRAVENOUS DAILY (6 AM) [COMPLETED] NaCl 0.9% 1,000 mL iv bolus 1,000 mL INTRAVENOUS ONCE [] iv contrast (radiology procedure) INTRAVENOUS DIRECTED PRN [COMPLETED] fentaNYL 50 mcg/mL 50 mcg injection (SUBLIMAZE) 50 mcg INTRAVENOUS ONCE [COMPLETED] ondansetron (PF) 4 mg injection (ZOFRAN) 4 mg INTRAVENOUS ONCE [Transfer Hold] iv contrast (radiology procedure) INTRAVENOUS DIRECTED PRN [COMPLETED] HYDROmorphone 0.5 mg injection (DILAUDID) 0.5 mg INTRAVENOUS ONCE [COMPLETED] furosemide 20 mg injection (LASIX) 20 mg INTRAVENOUS ONCE [Transfer Hold] ALPRAZolam 0.5 mg tab(s) (XANAX) 0.5 mg ORAL BID PRN [Transfer Hold] zolpidem 10 mg tab(s) (AMBIEN) 10 mg ORAL AT BEDTIME [Transfer Hold] albuterol 2.5 mg /3 mL (0.083 %) 2.5 mg (PROVENTIL) 3 mL INHALATION q 4 H PRN [Transfer Hold] vortioxetine 10 mg tab(s) (TRINTELLIX) 10 mg ORAL DAILY [Transfer Hold] oxyCODONE IR 5 mg tab(s) (ROXICODONE) 5 mg ORAL q 4 H PRN [Transfer Hold] prochlorperazine 10 mg injection (COMPAZINE) 10 mg INTRAVENOUS q 6 H PRN [Transfer Hold] ondansetron orally disintegrating 8 mg tab(s) (ZOFRAN ODT) 8 mg ORAL q 8 H PRN [Transfer Hold] enoxaparin 40 mg injection (LOVENOX) 40 mg SUBCUTANEOUS q 24 HR [Transfer Hold] NaCl 0.9% iv flush bag 20 mL INTRAVENOUS PRN [Transfer Hold] HYDROmorphone 1 mg injection (DILAUDID) 1 mg INTRAVENOUS q 4 H PRN Outpatient Medications as of 07/06/2024 Medication Sig vortioxetine (TRINTELLIX) 10 mg tablet Take 10 mg by mouth once daily. albuterol HFA (VENTOLIN HFA) 90 mcg/actuation inhaler Inhale 2 Puffs as instructed every 4 hours as needed for wheezing/shortness of breath. ALPRAZolam (XANAX) 0.5 mg tablet Take 0.5 mg by mouth twice daily. zolpidem (AMBIEN) 10 mg Tab Take 10 mg by mouth daily at bedtime. sulfamethoxazole-trimeth oprim (BACTRIM DS) 800-160 mg per tablet Take 1 tablet by mouth two times a day. I have interviewed and examined the patient. I have reviewed the medical record and/or the pre-anesthesia evaluation, pertinent labs, and test results. This contains updated information obtained within 48 hours of Surgery/Procedure. SIGNATURE: Marva Cheung MD PATIENT NAME: Michelle Mitchell DATE: July 06, 2024 TIME: 9:17 AM CSN: [id number] Normal [facility] CBC W Auto Differential pane l (Bld)on 07-06-2024 Basophils (Bld) [#/Vol] 0.03 10*3/uL Normal <0.11 [facility] Comment on above: Order Comment: Spectian horton Type: BLOOD SPECIMEN Ordering Facility: [facility] Address: [address] [place] [address] Performed By: #### 5 8410-2 #### [facility] CLIA [id number] [address] [place] [address] [place] Basophils/100 WBC (Bld) 0.3 % Normal [facility] Comment on above: Order Comment: Speci sol Type: BLOOD SPECIMEN Ordering Facility: [facility] Address: [address] [place] [address] Performed By: #### 5 8410-2 #### [facility] CLIA [id number] [address] [place] [address] [place] Differential cell count method Nom (Bld) Auto Normal [facility] Comment on above: Order Comment: Kianai sol Type: BLOOD SPECIMEN Ordering Facility: [facility] Address: [address] [place] [address] Performed By: #### 5 8410-2 #### [facility] CLIA [id number] [address] [place] [address] [place] Eosinophils (Bld) [#/Vol] 0.17 10*3/uL Normal <0.46 [facility] Comment on above: Order Comment: Speci men Type: BLOOD SPECIMEN Ordering Facility: [facility] Address: [address] [place] [address] Performed By: #### 5 8410-2 #### [facility] CLIA [id number] [address] [place] [address] [place] Eosinophils/100 WBC (Bld) 1.9 % Normal [facility] Comment on above: Order Comment: Speci men Type: BLOOD SPECIMEN Ordering Facility: [facility] Address: [address] [place] [address] Performed By: #### 5 8410-2 #### [facility] CLIA [id number] [address] [place] Erythrocyte distribution width (RBC) [Ratio] 14.5 % Normal 11.5-15.0 [facility] Comment on above: Order Comment: Speci men Type: BLOOD SPECIMEN Ordering Facility: [facility] Address: [address] [place] [address] Performed By: #### 5 8410-2 #### [facility] CLIA [id number] [address] [place] Hematocrit (Bld) [Volume fraction] 40.4 % Normal 36.0-46.0 [facility] Comment on above: Order Comment: Speci men Type: BLOOD SPECIMEN Ordering Facility: [facility] Address: [address] [place] [address] Performed By: #### 5 8410-2 #### [facility] CLIA [id number] [address] [place] Hemoglobin (Bld) [Mass/Vol] 13.3 g/dL Normal 11.5-15.5 [facility] Comment on above: Order Comment: Speci men Type: BLOOD SPECIMEN Ordering Facility: [facility] Address: [address] [place] [address] Performed By: #### 5 8410-2 #### [facility] CLIA [id number] [address] [place] [address] [place] Immature granulocytes (Bld) [#/Vol] 0.03 10*3/uL Normal <0.10 [facility] Comment on above: Order Comment: Speci men Type: BLOOD SPECIMEN Ordering Facility: [facility] Address: [address] [place] [address] Performed By: #### 5 8410-2 #### [facility] CLIA [id number] [address] Immature granulocytes/100 WBC (Bld) 0.3 % Normal [facility] Comment on above: Order Comment: Speci men Type: BLOOD SPECIMEN Ordering Facility: [facility] Address: [address] [place] [address] Performed By: #### 5 8410-2 #### [facility] CLIA [id number] [address] [place] [address] [place] Lymphocytes (Bld) [#/Vol] 1.51 10*3/uL Normal 1.00-4.00 [facility] Comment on above: Order Comment: Speci men Type: BLOOD SPECIMEN Ordering Facility: [facility] Address: [address] [place] [address] Performed By: #### 5 8410-2 #### [facility] CLIA [id number] [address] [place] Lymphocytes/100 WBC (Bld) 16.6 % Normal [facility] Comment on above: Order Comment: Speci men Type: BLOOD SPECIMEN Ordering Facility: [facility] Address: [address] [place] [address] Performed By: #### 5 8410-2 #### [facility] CLIA [id number] [address] [place] [address] [place] MCH (RBC) [Entitic mass] 32.6 pg Normal 26.0-34.0 [facility] Comment on above: Order Comment: Speci men Type: BLOOD SPECIMEN Ordering Facility: [facility] Address: [address] [place] [address] Performed By: #### 5 8410-2 #### [facility] CLIA [id number] [address] [place] [address] [place] MCHC (RBC) [Mass/Vol] 32.9 g/dL Normal 30.5-36.0 [facility] Comment on above: Order Comment: Speci men Type: BLOOD SPECIMEN Ordering Facility: [facility] Address: [address] [place] [address] Performed By: #### 5 8410-2 #### [facility] CLIA [id number] [address] [place] MCV (RBC) [Entitic vol] 99.0 fL Normal 80.0-100.0 [facility] Comment on above: Order Comment: Speci men Type: BLOOD SPECIMEN Ordering Facility: [facility] Address: [address] [place] [address] Performed By: #### 5 8410-2 #### [facility] CLIA [id number] [address] [place] [address] [place] Monocytes (Bld) [#/Vol] 0.52 10*3/uL Normal <0.87 [facility] Comment on above: Order Comment: Speci men Type: BLOOD SPECIMEN Ordering Facility: [facility] Address: [address] [place] [address] Performed By: #### 5 8410-2 #### [facility] CLIA [id number] [address] [place] Monocytes/100 WBC (Bld) 5.7 % Normal [facility] Comment on above: Order Comment: Speci men Type: BLOOD SPECIMEN Ordering Facility: [facility] Address: [address] [place] [address] Performed By: #### 5 8410-2 #### [facility] CLIA [id number] [address] [place] [address] [place] Neutrophils (Bld) [#/Vol] 6.82 10*3/uL Normal 1.45-7.50 [facility] Comment on above: Order Comment: Speci men Type: BLOOD SPECIMEN Ordering Facility: [facility] Address: [address] [place] [address] Performed By: #### 5 8410-2 #### [facility] CLIA [id number] [address] Neutrophils/100 WBC (Bld) 75.2 % Normal [facility] Comment on above: Order Comment: Speci men Type: BLOOD SPECIMEN Ordering Facility: [facility] Address: [address] [place] [address] Performed By: #### 5 8410-2 #### [facility] CLIA [id number] [address] [place] Nucleated RBC (Bld) [#/Vol] 10*3/uL Normal <0.01 [facility] Comment on above: Order Comment: Speci men Type: BLOOD SPECIMEN Ordering Facility: [facility] Address: [address] [place] [address] Performed By: #### 5 8410-2 #### [facility] CLIA [id number] [address] [place] Nucleated RBC/100 WBC (Bld) [Ratio] 0.0 /100 WBC Normal [facility] Comment on above: Order Comment: Speci men Type: BLOOD SPECIMEN Ordering Facility: [facility] Address: [address] [place] [address] Performed By: #### 5 8410-2 #### [facility] CLIA [id number] [address] [place] Platelet mean volume (Bld) [Entitic vol] 10.6 fL Normal 9.0-12.7 [facility] Comment on above: Order Comment: Speci men Type: BLOOD SPECIMEN Ordering Facility: [facility] Address: [address] [place] [address] Performed By: #### 5 8410-2 #### [facility] CLIA [id number] [address] [place] [address] [place] Platelets (Bld) [#/Vol] 239 10*3/uL Normal 150-400 [facility] Comment on above: Order Comment: Speci men Type: BLOOD SPECIMEN Ordering Facility: [facility] Address: [address] [place] [address] Performed By: #### 5 8410-2 #### [facility] CLIA [id number] [address] RBC (Bld) [#/Vol] 4.08 10*6/uL Normal 3.90-5.20 [facility] Comment on above: Order Comment: Speci men Type: BLOOD SPECIMEN Ordering Facility: [facility] Address: [address] [place] [address] Performed By: #### 5 8410-2 #### [facility] CLIA [id number] [address] WBC (Bld) [#/Vol] 9.08 10*3/uL Normal 3.70-11.00 [facility] Comment on above: Order Comment: Speci men Type: BLOOD SPECIMEN Ordering Facility: [facility] Address: [address] [place] [address] Performed By: #### 5 8410-2 #### [facility] CLIA [id number] [address] Comprehensive metabolic 2000 panelon 07-06-2024 Albumin [Mass/Vol] 4.1 g/dL Normal 3.9-4.9 [facility] Comment on above: Order Comment: Speci men Type: BLOOD SPECIMENOrdering Facility: [facility] Address: [address] [place] [address] Performed By: #### 2 4323-8 ####[facility] [id number] [address] ALP [Catalytic activity/Vol] 134 U/L High 34-123 [facility] Comment on above: Order Comment: Speci men Type: BLOOD SPECIMENOrdering Facility: [facility] Address: [address] [place] [address] Performed By: #### 2 4323-8 ####[facility] [id number] [address] ALT [Catalytic activity/Vol] 32 U/L Normal 7-38 [facility] Comment on above: Order Comment: Speci men Type: BLOOD SPECIMENOrdering Facility: [facility] Address: [address] [facility] [place] [address] Performed By: #### 2 4323-8 ####[facility] [id number] [place] [address] [place] Anion gap [Moles/Vol] 11 mmol/L Normal 8-15 [facility] Comment on above: Order Comment: Speci men Type: BLOOD SPECIMENOrdering Facility: [facility] Address: [address] [place] [address] Performed By: #### 2 4323-8 ####[facility] [id number] [place] [address] [place] AST [Catalytic activity/Vol] 24 U/L Normal 13-35 [facility] Comment on above: Order Comment: Speci men Type: BLOOD SPECIMENOrdering Facility: [facility] Address: [address] [place] [address] Performed By: #### 2 4323-8 ####[facility] [id number] [place] [address] [place] Bilirubin [Mass/Vol] 1.3 mg/dL Normal 0.2-1.3 [facility] Comment on above: Order Comment: Speci men Type: BLOOD SPECIMENOrdering Facility: [facility] Address: [address] [place] [address] Performed By: #### 2 4323-8 ####[facility] [id number] [place] [address] [place] Calcium [Mass/Vol] 9.2 mg/dL Normal 8.5-10.2 [facility] Comment on above: Order Comment: Speci men Type: BLOOD SPECIMENOrdering Facility: [facility] Address: [address] [place] [address] Performed By: #### 2 4323-8 ####[facility] [id number] [place] [address] [place] Chloride [Moles/Vol] 102 mmol/L Normal 98-107 [facility] Comment on above: Order Comment: Speci men Type: BLOOD SPECIMENOrdering Facility: [facility] Address: [address] [place] [address] Performed By: #### 2 4323-8 ####[facility] [id number] [place] [address] [place] CO2 [Moles/Vol] 25 mmol/L Normal 22-30 [facility] Comment on above: Order Comment: Kianai men Type: BLOOD SPECIMENOrdering Facility: [facility] Address: [address] [place] [address] Performed By: #### 2 4323-8 ####[facility] [id number] [address] STATES OF [facility] Creatinine [Mass/Vol] 0.85 mg/dL Normal 0.58-0.96 [facility] Comment on above: Order Comment: Speci men Type: BLOOD SPECIMENOrdering Facility: [facility] Address: [address] [place] [address] Performed By: #### 2 4323-8 ####[facility] [id number] [address] Creatinine and Glomerular filtration rate.predicted panel (S/P/Bld) 87 mL/min/1.73m??? Normal >=60 [facility] Comment on above: Order Comment: David men Type: BLOOD SPECIMENOrdering Facility: [facility] Address: [address] [place] [address] Result Comment: Sandie mated Glomerular Filtration Rate (eGFR) is calculated using the 2020 CKD-EPI creatinine equation. This equation utilizes serum creatinine, sex, and age as parameters. The creatinine assay has traceable calibration to isotope dilution-mass spectrometry. Refer to KDIGO guidelines for clinical interpretation. In patients with unstable renal function, e.g. those with acute kidney injury, the eGFR may not accurately reflect actual GFR. Performed By: #### 2 4323-8 ####[facility] [id number] [address] [place] Glucose [Mass/Vol] 91 mg/dL Normal 74-99 [facility] Comment on above: Order Comment: Kianai men Type: BLOOD SPECIMENOrdering Facility: [facility] Address: [address] [place] [address] Result Comment: The [place] Diabetes Association (ADA) provides guidance for cutoff values for fasting glucose and random glucose. The ADA defines fasting as no caloric intake for at least 8 hours. Fasting plasma glucose results between 100 to 125 mg/dL indicate increased risk for diabetes (prediabetes). Fasting plasma glucose results greater than or equal to 126 mg/dL meet the criteria for diagnosis of diabetes. In the absence of unequivocal hyperglycemia, results should be confirmed by repeat testing. In a patient with classic symptoms of hyperglycemia or hyperglycemic crisis, random plasma glucose results greater than or equal to 200 mg/dL meet the criteria for diagnosis of diabetes. Reference: Standards of Medical Care in Diabetes 2016, [place] [employer] Association. Diabetes Care. 2016.39(Suppl 1). Performed By: #### 2 4323-8 ####[facility] [id number] [place] [address] [place] Potassium [Moles/Vol] 3.9 mmol/L Normal 3.7-5.1 [facility] Comment on above: Order Comment: Speci men Type: BLOOD SPECIMENOrdering Facility: [facility] Address: [address] [place] [address] Performed By: #### 2 4323-8 ####[facility] [id number] [place] [address] [place] Protein [Mass/Vol] 6.2 g/dL Low 6.3-8.0 [facility] Comment on above: Order Comment: Speci men Type: BLOOD SPECIMENOrdering Facility: [facility] Address: [address] [id number] Performed By: #### 2 4323-8 ####[facility] [id number] [place] [address] [place] Sodium [Moles/Vol] 138 mmol/L Normal 136-144 [facility] Comment on above: Order Comment: Speci men Type: BLOOD SPECIMENOrdering Facility: [facility] Address: [address] [id number] Performed By: #### 2 4323-8 ####[facility] [id number] [address] [place] Urea nitrogen [Mass/Vol] 9 mg/dL Normal 7- [facility] Comment on above: Order Comment: David sol Type: BLOOD SPECIMENOrdering Facility: [facility] Address: [address] [place] [address] Performed By: #### 2 4323-8 ####[facility] [id number] [address] [place] Pathology biopsy report David (Tiss)on 07-06-2024 ADDENDUM 1: [facility] Comment on above: Order Comment: Speci sol Type: BLOOD SPECIMEN Ordering Facility: [facility] Address: [address] [place] [address] Result Comment: B. I mmunohistochemical stain for H. pylori is negative. Addendum electronically signed by Jaleesa Valdivia MD on 07/16/2024 at 1121 EDT Performed By: #### 5 8410-2 #### [facility] CLIA [id number] [address] AP DISCLAIMER [facility] Comment on above: Order Comment: [facility] Type: BLOOD SPECIMEN Ordering Facility: [facility] Address: [address] [place] [address] Result Comment: Ubaldo tang Developed Test (LDT) Disclaimer: Performance characteristics of immunohistochemical, immunofluorescent, and chromogenic in-situ hybridization tests have been determined by the performing laboratory within [facility] ([facility], [facility], [facility], [facility], [facility], [facility], or [facility]) in a manner consistent with CLIA requirements. One or more of these tests may not have been cleared or approved by the FDA. [facility] is regulated under CLIA as qualified to perform high-complexity testing. These tests are used for clinical purposes. These should not be regarded as investigational or for research. Positive and negative controls stain appropriately. Performed By: #### 5 8410-2 #### [facility] CLIA [id number] [address] CASE REPORT [facility] Comment on above: Order Comment: Speci men Type: BLOOD SPECIMEN Ordering Facility: [facility] Address: [address] [place] [address] Result Comment: Surg ica Pathology Report Case: [id number] Authorizing Provider: Kaylyn Ellis MD Collected: 07/06/2024 09:43 AM Ordering Location: [facility] Received: 07/06/2024 11:27 AM Pathologist: Jaleesa Valdivia MD Specimens: A) - Small Bowel, Duodenum, Biopsy, R/O Sprue and Giardia B) - Stomach, Biopsy, R/O H Pylori C) - Esophagogastric Junction, Biopsy, R/O Barretts Performed By: #### 5 8410-2 #### [facility] CLIA [id number] [address] DIAGNOSIS COMMENT Part C was reviewed with Dr. Nunn, who concurs. [facility] Comment on above: Order Comment: Speci men Type: BLOOD SPECIMEN Ordering Facility: [facility] Address: [address] [place] [address] Performed By: #### 5 8410-2 #### [facility] CLIA [id number] [address] FINAL DIAGNOSIS [facility] Comment on above: Order Comment: David horton Type: BLOOD SPECIMEN Ordering Facility: [facility] Address: [address] [place] [address] Result Comment: A. D uodenum, biopsy: - Focally active duodenitis. - No evidence of celiac disease. B. Stomach, biopsy: - Gastric oxyntic and antral mucosa with reactive gastropathy. - No definitive morphologic evidence of Helicobacter pylori organisms. C. Esophagogastric junction, biopsy: - Inflamed cardiofundic-type mucosa, negative for intestinal metaplasia and dysplasia. - Squamous mucosa with reactive epithelial changes. at 1405 EDT Performed By: #### 5 8410-2 #### [facility] CLIA [id number] [address] FINAL PERFORMING LAB [facility] Comment on above: Order Comment: Speci men Type: BLOOD SPECIMEN Ordering Facility: [facility] Address: [address] [place] [address] Result Comment: Diag nostic interpretation performed at: [facility], [address] [place] [address], [address]k [address] [place] [address] CLIA# [id number] Vb Net Developer: Logan Villanueva MD Performed By: #### 5 8410-2 #### [facility] CLIA [id number] [address] OF [facility] GROSS DESCRIPTION [facility] Comment on above: Order Comment: Speci men Type: BLOOD SPECIMEN Ordering Facility: [facility] Address: [address] [place] [address] Result Comment: A. S mall Bowel, Duodenum, Biopsy Received in formalin are multiple pieces of maharaj-brown, soft tissue aggregating to 0.8 x 0.3 x 0.2 cm. Totally submitted in one cassette. B. Stomach, Biopsy Received in formalin are multiple pieces of maharaj-brown, soft tissue aggregating to 1.5 x 0.5 x 0.2 cm. Totally submitted in two cassettes. C. Esophagogastric Junction, Biopsy Received in formalin are multiple pieces of maharaj, soft tissue aggregating to 1.8 x 0.3 x 0.2 cm. Totally submitted in one cassette. Gross examination performed at [facility], [address] [place] [address] July 06, 2024 4:20 PM Performed By: #### 5 8410-2 #### [facility] CLIA [id number] [address] OF [facility] Upper GI endoscopyon 025 Upper GI endoscopy [facility] Gastrointestinal Endoscopy Patient Name: Michelle Mitchell Procedure Date: 07/06/2024 9:28 AM Date of : 1980 Admit Type: Inpatient Age: 43 Room: [facility] Gender: Female Note Status: Finalized Attending MD: Kyalyn Ellis MD, [id number] Procedure: Upper GI endoscopy Indications: Abdominal pain, Heartburn, Nausea Providers: Kaylyn Ellis MD Patient Profile: Refer to note in patient chart for documentation of history and physical. Referring Physician: Deeipka Jyo (Referring MD) Medicines: Monitored Anesthesia Care Complications: No immediate complications. Requesting Provider: Procedure: Pre-Anesthesia Assessment: - The risks and benefits of the procedure and the sedation options and risks were discussed with the patient. All questions were answered and informed consent was obtained. - Monitored anesthesia care under the supervision of a DOOR AND ARRIVAL ATTENDANT was determined to be medically necessary for this procedure based on review of the patient's medical history, medications, and prior anesthesia history. - The heart rate, respiratory rate, oxygen saturations, blood pressure, adequacy of pulmonary ventilation, and response to care were monitored throughout the procedure. After obtaining informed consent, the endoscope was passed under direct vision. Throughout the procedure, the patient's blood pressure, pulse, and oxygen saturations were monitored continuously. The Endoscope was introduced through the mouth, and advanced to the second part of duodenum. The upper GI endoscopy was accomplished without difficulty. The patient tolerated the procedure well. Moderate Sedation: Moderate (conscious) sedation was administered by the nurse and supervised by the endoscopist. The patient's oxygen saturation, heart rate, blood pressure and response to care were monitored. Total physician intraservice time was 7 minutes. MAC anesthesia was administered by the anesthesia team. Total Procedure Duration: 0 hours 6 minutes 24 seconds Findings: The hypopharynx was normal. A 1 cm hiatal hernia was present (38 cm to 39 cm). The Z-line was irregular and was found 38 cm from the incisors. Biopsies were taken with a cold forceps for histology. Patchy mild inflammation characterized by congestion (edema), erosions and erythema was found in the gastric antrum. Mild bile reflux seen as well. Biopsies were taken with a cold forceps for Helicobacter pylori testing. The examined duodenum was normal. Biopsies for histology were taken with a cold forceps for evaluation of celiac disease. Impression: - 1 cm hiatal hernia (38 cm to 39 cm). - Irregular Z-line, biopsied. - Mild erosive antral gastritis with bile reflux, biopsied. - Otherwise unremarkable EGD, s/p duodenal biopsies. Recommendation: - Await pathology results. - Advance diet as tolerated. - Continue present medications. - Further management based on clinical course. Procedure Code(s): --- Professional --- 31066, Esophagogastroduodenosco py, flexible, transoral; with biopsy, single or multiple CPT copyright 2020 [employer]. All rights reserved. The codes documented in this report are preliminary and upon medical biller coder review may be revised to meet current compliance requirements. Attending Participation: I personally performed the entire procedure. Scope In: 9:42:49 AM Scope Out: 9:49:13 AM MD Kaylyn George MD 07/06/2024 9:59:31 AM This report has been signed electronically by Kaylyn Ellis MD Number of Addenda: 0 Note Initiated On: 07/06/2024 9:28 AM Estimated Blood Loss: Estimated blood loss: none. Normal [facility] Alpha 1 antitrypsin [Mass/Vol] 106 mg/dL Normal 90-200 [facility] Comment on above: Order Comment: David horton Type: BLOOD SPECIMEN Ordering Facility: [facility] Address: [address] [place] [address] Performed By: #### 5 8410-2 #### [facility] CLIA [id number] [address] [facility] 07-[facility]-2024 AFP [Mass/Vol] 5.23 ng/mL Normal <9.00 [facility] Comment on above: Order Comment: David horton Type: BLOOD SPECIMEN Ordering Facility: [facility] Address: [address] [place] [address] Result Comment: The Alpha-Fetoprotein test was performed using the [employer] DxI immunoenzymatic assay. Results obtained with different assay methods or kits cannot be used interchangeably. Performed By: #### 5 8410-2 #### [facility] CLIA [id number] [address] SANDRA BY IFA SCREENon 07-06-19 Nuclear Ab Ql (S) Negative Normal Negative [facility] Comment on above: Order Comment: David horton Type: BLOOD SPECIMEN Ordering Facility: [facility] Address: [address] [place] [address] Result Comment: Anti -nuclear antibody test is used as an aid in diagnosis of systemic autoimmune diseases. Where positive and clinically warranted, follow-up using disease-specific testing is recommended. Low positive titers are not uncommon with advanced age, certain chronic infections, and malignancies among others. Test methodology: Indirect fluorescence immunoassay (IFA) using HEp-2 cells. Performed By: #### 5 8410-2 #### [facility] CLIA [id number] [address] [place] [address] [place] CBC W Auto Differential pane l (Bld)on 07-05-2024 Basophils (Bld) [#/Vol] 0.08 10*3/uL Normal <0.11 [facility] Comment on above: Order Comment: Speci men Type: BLOOD SPECIMEN Ordering Facility: [facility] Address: [address] [place] [address] Performed By: #### 5 8410-2 #### [facility] CLIA [id number] [address] [place] Basophils/100 WBC (Bld) 0.7 % Normal [facility] Comment on above: Order Comment: Speci men Type: BLOOD SPECIMEN Ordering Facility: [facility] Address: [address] [place] [address] Performed By: #### 5 8410-2 #### [facility] CLIA [id number] [address] Differential cell count method Nom (Bld) Auto Normal [facility] Comment on above: Order Comment: Speci men Type: BLOOD SPECIMEN Ordering Facility: [facility] Address: [address] [place] [address] Performed By: #### 5 8410-2 #### [facility] CLIA [id number] [address] [place] [address] [place] Eosinophils (Bld) [#/Vol] 0.12 10*3/uL Normal <0.46 [facility] Comment on above: Order Comment: Speci men Type: BLOOD SPECIMEN Ordering Facility: [facility] Address: [address] [place] [address] Performed By: #### 5 8410-2 #### [facility] CLIA [id number] [address] [place] Eosinophils/100 WBC (Bld) 1.0 % Normal [facility] Comment on above: Order Comment: Speci men Type: BLOOD SPECIMEN Ordering Facility: [facility] Address: [address] [place] [address] Performed By: #### 5 8410-2 #### [facility] CLIA [id number] [address] [place] Erythrocyte distribution width (RBC) [Ratio] 15.0 % Normal 11.5-15.0 [facility] Comment on above: Order Comment: Speci men Type: BLOOD SPECIMEN Ordering Facility: [facility] Address: [address] [place] [address] Performed By: #### 5 8410-2 #### [facility] CLIA [id number] [address] [place] Hematocrit (Bld) [Volume fraction] 45.4 % Normal 36.0-46.0 [facility] Comment on above: Order Comment: Speci men Type: BLOOD SPECIMEN Ordering Facility: [facility] Address: [address] [place] [address] Performed By: #### 5 8410-2 #### [facility] CLIA [id number] [address] [place] Hemoglobin (Bld) [Mass/Vol] 14.2 g/dL Normal 11.5-15.5 [facility] Comment on above: Order Comment: Speci men Type: BLOOD SPECIMEN Ordering Facility: [facility] Address: [address] [place] [address] Performed By: #### 5 8410-2 #### [facility] CLIA [id number] [address] [place] Immature granulocytes (Bld) [#/Vol] 0.04 10*3/uL Normal <0.10 [facility] Comment on above: Order Comment: Speci men Type: BLOOD SPECIMEN Ordering Facility: [facility] Address: [address] [place] [address] Performed By: #### 5 8410-2 #### [facility] CLIA [id number] [address] Immature granulocytes/100 WBC (Bld) 0.3 % Normal [facility] Comment on above: Order Comment: Speci men Type: BLOOD SPECIMEN Ordering Facility: [facility] Address: [address] [place] [address] Performed By: #### 5 8410-2 #### [facility] CLIA [id number] [address] Lymphocytes (Bld) [#/Vol] 1.79 10*3/uL Normal 1.00-4.00 [facility] Comment on above: Order Comment: Speci men Type: BLOOD SPECIMEN Ordering Facility: [facility] Address: [address] [place] [address] Performed By: #### 5 8410-2 #### [facility] CLIA [id number] [address] Lymphocytes/100 WBC (Bld) 14.7 % Normal [facility] Comment on above: Order Comment: Speci men Type: BLOOD SPECIMEN Ordering Facility: [facility] Address: [address] [place] [address] Performed By: #### 5 8410-2 #### [facility] CLIA [id number] [address] [place] MCH (RBC) [Entitic mass] 31.7 pg Normal 26.0-34.0 [facility] Comment on above: Order Comment: Speci men Type: BLOOD SPECIMEN Ordering Facility: [facility] Address: [address] [place] [address] Performed By: #### 5 8410-2 #### [facility] CLIA [id number] [address] MCHC (RBC) [Mass/Vol] 31.3 g/dL Normal 30.5-36.0 [facility] Comment on above: Order Comment: Speci men Type: BLOOD SPECIMEN Ordering Facility: [facility] Address: [address] [place] [address] Performed By: #### 5 8410-2 #### [facility] CLIA [id number] [address] [place] MCV (RBC) [Entitic vol] 101.3 fL High 80.0-100.0 [facility] Comment on above: Order Comment: Speci men Type: BLOOD SPECIMEN Ordering Facility: [facility] Address: [address] [place] [address] Performed By: #### 5 8410-2 #### [facility] CLIA [id number] [address] [place] [address] [place] Monocytes (Bld) [#/Vol] 0.57 10*3/uL Normal <0.87 [facility] Comment on above: Order Comment: Speci men Type: BLOOD SPECIMEN Ordering Facility: [facility] Address: [address] [place] [address] Performed By: #### 5 8410-2 #### [facility] CLIA [id number] [address] [place] Monocytes/100 WBC (Bld) 4.7 % Normal [facility] Comment on above: Order Comment: Speci men Type: BLOOD SPECIMEN Ordering Facility: [facility] Address: [address] [place] [address] Performed By: #### 5 8410-2 #### [facility] CLIA [id number] [address] [place] [address] [place] Neutrophils (Bld) [#/Vol] 9.58 10*3/uL High 1.45-7.50 [facility] Comment on above: Order Comment: Speci men Type: BLOOD SPECIMEN Ordering Facility: [facility] Address: [address] [place] [address] Performed By: #### 5 8410-2 #### [facility] CLIA [id number] [address] [place] Neutrophils/100 WBC (Bld) 78.6 % Normal [facility] Comment on above: Order Comment: Speci men Type: BLOOD SPECIMEN Ordering Facility: [facility] Address: [address] [place] [address] Performed By: #### 5 8410-2 #### [facility] CLIA [id number] [address] [place] [address] [place] Nucleated RBC (Bld) [#/Vol] 10*3/uL Normal <0.01 [facility] Comment on above: Order Comment: Speci men Type: BLOOD SPECIMEN Ordering Facility: [facility] Address: [address] [place] [address] Performed By: #### 5 8410-2 #### [facility] CLIA [id number] [address] [place] [address] [place] Nucleated RBC/100 WBC (Bld) [Ratio] 0.0 /100 WBC Normal [facility] Comment on above: Order Comment: Speci men Type: BLOOD SPECIMEN Ordering Facility: [facility] Address: [address] [place] [address] Performed By: #### 5 8410-2 #### [facility] CLIA [id number] [address] [place] [address] [place] Platelet mean volume (Bld) [Entitic vol] 10.5 fL Normal 9.0-12.7 [facility] Comment on above: Order Comment: Speci men Type: BLOOD SPECIMEN Ordering Facility: [facility] Address: [address] [place] [address] Performed By: #### 5 8410-2 #### [facility] CLIA [id number] [address] [place] [address] [place] Platelets (Bld) [#/Vol] 278 10*3/uL Normal 150-400 [facility] Comment on above: Order Comment: Speci men Type: BLOOD SPECIMEN Ordering Facility: [facility] Address: [address] [place] [address] Performed By: #### 5 8410-2 #### [facility] CLIA [id number] [address] [place] [address] [place] RBC (Bld) [#/Vol] 4.48 10*6/uL Normal 3.90-5.20 [facility] Comment on above: Order Comment: Speci men Type: BLOOD SPECIMEN Ordering Facility: [facility] Address: [address] [place] [address] Performed By: #### 5 8410-2 #### [facility] CLIA [id number] [address] [place] WBC (Bld) [#/Vol] 12.18 10*3/uL High 3.70-11.00 [facility] Comment on above: Order Comment: Spectian horton Type: BLOOD SPECIMEN Ordering Facility: [facility] Address: [address] [place] [address] Performed By: #### 5 8410-2 #### [facility] CLIA [id number] [address] [place] [address] [place] CELIAC SCREENon 07-05-2024 GLIAD DEAMIDATED IGA QUAL Negative Normal Negative, Test not Indicated [facility] Comment on above: Order Comment: Spectian horton Type: BLOOD SPECIMENOrdering Facility: [facility] Address: [address] [place] [address] Result Comment: This is used as an aid in diagnosis of celiac disease. Clinical correlation is required. The following results were obtained with an [employer] QUANTA Lite Gliadin IgA ION Gliadin. Gliadin IgA values obtained with different manufacturers' assay methods may not be used interchangeably. The magnitude of the reported IgA levels cannot be correlated to an endpoint titer. Performed By: #### L [id number] ####[facility] [id number] [place] [address] [place] Gliadin peptide IgA Qn (S) 1 Units Normal <20 [facility] Comment on above: Order Comment: David horton Type: BLOOD SPECIMENOrdering Facility: [facility] Address: [address] [place] [address] Performed By: #### L [id number] ####[facility]IA [id number] [place] [address] [place] INTERPRETATION No serological evide nce of celiac disease, however, if celiac disease is clinically suspected and patient is not on gluten-free diet, histological diagnosis may be considered. HLA testing may help with risk assessment. Normal [facility] Comment on above: Order Comment: David [facility] Type: BLOOD SPECIMENOrdering Facility: [facility] Address: [address] [place] [address] Performed By: #### L [id number] ####[facility]IA [id number] [address] TRANSGLUTAMINASE IGA ABS INTERPRETATION Negative Normal Negative [facility] Comment on above: Order Comment: David horton Type: BLOOD SPECIMENOrdering Facility: [facility] Address: [address] [place] [address] Result Comment: The following results were obtained with [employer] Lite R h-tTG IgA ION.???R h-tTG IgA values obtained with different manufacturers' assay methods may not be used interchangeably. The magnitude of the reported IgA levels cannot be corelated to an endpoint???concentration. This is used as an aid in diagnosis of celiac disease. Clinical correlation is required. Performed By: #### L [id number] ####[facility] [id number] [address] tTG IgA Qn (S) <2 Normal <4 [facility] Comment on above: Order Comment: David horton Type: BLOOD SPECIMENOrdering Facility: [facility] Address: [address] [place] [address] Performed By: #### L [id number] ####[facility]IA [id number] [address] [place] CMV IgM Qnon 07-05-2024 CMV IGM, QUAL Negative Normal Negative [facility] Comment on above: Order Comment: David horton Type: BLOOD SPECIMENOrdering Facility: [facility] Address: [address] [place] [address] Result Comment: No s erological evidence of recent exposure to Cytomegalovirus. Performed By: #### 7 853-5, 7886-5 ####[facility] [id number] [address] [place] CONSULTon 07-05-2024 CONSULT HNO ID: [id number] Author: SERGIO DE LA TORRE MD Service: Gastroenterology Author Type: Physician Type: Consults Filed: 07/05/2024 17:29 Note Text: GASTROENTEROLOGY CONSULT NOTE PATIENT NAME: Michelle Mitchell SERVICE DATE: July 05, 2024 SERVICE TIME: 8:39 AM PRIMARY CARE PHYSICIAN: Dex Sutherland MD ATTENDING PHYSICIAN: Dex Sutherland MD REASON FOR ADMISSION: Abdominal pain REASON FOR CONSULTATION: Hepatomegaly and ascites HPI: This is a 43 year old female with a past medical history significant for breast cancer at age 18 (s/p lumpectomy and chemotherapy), ovarian cancer s/p oophorectomy, endometrial cancer s/p ablation, DVT/PE (not currently on anticoagulation), CHF, pericarditis, hypertrophic obstructive cardiomyopathy, ICD placement, PUD, GERD with recent leg abscess requiring hospitalization from 05/16/24-05/22/24 and was treated with IV abx and discharged home on Bactrim. She was in her typical state of health when one week ago she reports the onset of diffuse abdominal pain and distention, nausea and facial swelling. She was evaluated in [place] [facility] twice and discharged to home. She was advised to present to [facility] by Dr. Sutherland for admission. Her pain started on 06/28/2024 with a dull discomfort which has progressively become worse and now described as a sharp pain. She rates her pain as an 8/10. She also reports nausea and vomiting starting with her last emesis on Tuesday. Denies hematemesis or coffee ground emesis. Her pain does radiate to her back and between her shoulder blades. Pain has waves of intensity with no know relieving factors. Denies heartburn. Has been taking Gas X at home for symptom relief which does not provide much relief. She is currently starving now that her nausea is controlled with Zofran. No know weight loss or dysphagia. Normally passes 6-7 liquid stools per day. Has intermittent BRB but denies melena. She states she had a colonoscopy in December 2023 and was told she may have Crohn's disease. There has been no other follow up. Takes ASA when her heart is acting up -- last dose in March 2024. Uses NSAIDs frequently -- at least two tablets once a week. With current illness was averaging 4-8 Ibuprofen tablets per day starting on 06/28/2024. ALLERGIES: ALLERGIES Allergen Reactions Prozac [Fluoxetine * Other: See Comments suicidal ideations Ativan [Lorazepam] Vomiting Azithromycin Intolerance [place] Anaphylaxis [place] Anaphylaxis pickles Fish Anaphylaxis Levofloxacin In D5w Swelling, Itching IV site swollen, ceased after d/c, redness and itching at site Neurontin [Gabapent* Mental Status Change Shellfish Anaphylaxis Tigan [Trimethobenz* Anaphylaxis Ultram [Tramadol] Hives Pt states she also pukes a lot Vicodin [Hydrocodon* Shortness of Breath pt states that she is able to take percocet PAST MEDICAL HISTORY: PAST MEDICAL HISTORY Diagnosis Date Breast cancer (HCC) Age 17 treated with radiation, lumpectomy and masectomy CIS (carcinoma in situ of cervix) Colon polyp 07/2015 Congestive heart failure (HCC) HOCM DVT (deep venous thrombosis) (HCC) Endometrial cancer (HCC) treated with ablation Gastroesophageal reflux disease 08/17/2017 GERD (gastroesophageal reflux disease) Hypertr obst cardiomyop ICD (implantable cardiac defibrillator) battery depletion Kidney stone Migraine Ovarian epithelial cancer (HCC) This diagnosis unlikely as both ovaries present 05/09/2018 laparoscopy Pericarditis (HCC) PUD (peptic ulcer disease) Pulmonary embolism (HCC) 11/2016 Vaginal Pap smear with ASC-US 12/2016 PAST SURGICAL HISTORY: PAST SURGICAL HISTORY Procedure Laterality Date ANES PERMANENT TRANSVENOUS PACEMAKER INSERTION Apr. 2006 ICD implant, [facility] ANESTHESIA TUBAL LIGATION/TRANSECTION APPENDECTOMY 05/05/2014 , lap BREAST LUMPECTOMY HX Left 1997 with radiation CHOLECYSTECTOMY HX 08/2010 lap COLONOSCOPY AND POLYPECTOMY 08/07/2015 CONIZATION CERVIX W/WO DANDC RPR KNIFE/LASER CIS EGD 08/25/2017 Tabbaa- normal ENDOMETRIAL ABLATION WITH US GUIDANCE for abnormal uterine bleeding EXCISION OF CYST 08/23/2017 Dr. Velasco Excision of sebaceous cyst IMPLANTABLE CARDIAC DEFIB ICD 02/2009, 10/19/2016 LAPAROSCOPY DIAGNOSTIC 07/21/2015 Lysis of adhesions, MIDLINE INSERTION/CONSULT 01/18/2017 PAST SURGICAL HISTORY OF 05/24/2014 Laparoscopy, MEDICATIONS: Prior to Admission Medications: vortioxetine (TRINTELLIX) 10 mg tablet, Take 10 mg by mouth once daily., Disp: , Rfl: , 07/04/2024 albuterol HFA (VENTOLIN HFA) 90 mcg/actuation inhaler, Inhale 2 Puffs as instructed every 4 hours as needed for wheezing/shortness of breath., Disp: , Rfl: , Past Week ALPRAZolam (XANAX) 0.5 mg tablet, Take 0.5 mg by mouth twice daily., Disp: , Rfl: , 07/04/2024 zolpidem (AMBIEN) 10 mg Tab, Take 10 mg by mouth daily at bedtime., D (more content not included)... Normal [facility] Ceruloplasmin SerPl-mCncon 0 07-05-2024 Ceruloplasmin [Mass/Vol] 31 mg/dL Normal 16-45 [facility] Comment on above: Order Comment: Speci men Type: BLOOD SPECIMEN Ordering Facility: [facility] Address: [address] [place] [address] Performed By: #### 5 8410-2 #### [facility] CLIA [id number] [address] [place] [address] [facility] [place] Comprehensive metabolic 2000 panelon 07-05-2024 Albumin [Mass/Vol] 4.0 g/dL Normal 3.9-4.9 [facility] Comment on above: Order Comment: Speci men Type: BLOOD SPECIMENOrdering Facility: [facility] Address: [address] [place] [address] Performed By: #### 2 4323-8, 73479-1, 99955-3 ####[facility] [id number] [place] [address] [place] ALP [Catalytic activity/Vol] 132 U/L High 34-123 [facility] Comment on above: Order Comment: Speci men Type: BLOOD SPECIMENOrdering Facility: [facility] Address: [address] [place] [address] Performed By: #### 2 4323-8, 83190-5, 13247-4 ####[facility] [id number] [address] ALT [Catalytic activity/Vol] 39 U/L High 7-38 [facility] Comment on above: Order Comment: Speci men Type: BLOOD SPECIMENOrdering Facility: [facility] Address: [address] [place] [address] Performed By: #### 2 4323-8, 53275-0, 16335-5 ####[facility] [id number] [address] [place] Anion gap [Moles/Vol] 10 mmol/L Normal 8-15 [facility] Comment on above: Order Comment: Speci men Type: BLOOD SPECIMENOrdering Facility: [facility] Address: [address] [place] [address] Performed By: #### 2 4323-8, 47094-2, 83547-8 ####[facility] [id number] [place] [address] [place] AST [Catalytic activity/Vol] 30 U/L Normal 13-35 [facility] Comment on above: Order Comment: Speci men Type: BLOOD SPECIMENOrdering Facility: [facility] Address: [address] [place] [address] Performed By: #### 2 4323-8, 48911-3, 75902-2 ####[facility] [id number] [address] [place] Bilirubin [Mass/Vol] 1.0 mg/dL Normal 0.2-1.3 [facility] Comment on above: Order Comment: Speci men Type: BLOOD SPECIMENOrdering Facility: [facility] Address: [address] [place] [address] Performed By: #### 2 4323-8, 71781-9, 40989-0 ####[facility] [id number] [address] OF [facility] Calcium [Mass/Vol] 9.1 mg/dL Normal 8.5-10.2 [facility] Comment on above: Order Comment: Speci men Type: BLOOD SPECIMENOrdering Facility: [facility] Address: [address] [place] [address] Performed By: #### 2 4323-8, 54562-5, 37348-4 ####[facility] [id number] [address] [place] Chloride [Moles/Vol] 104 mmol/L Normal 98-107 [facility] Comment on above: Order Comment: Speci men Type: BLOOD SPECIMENOrdering Facility: [facility] Address: [address] [place] [address] Performed By: #### 2 4323-8, 68902-0, 14422-7 ####[facility] [id number] [place] [address] [place] CO2 [Moles/Vol] 27 mmol/L Normal 22-30 [facility] Comment on above: Order Comment: Speci men Type: BLOOD SPECIMENOrdering Facility: [facility] Address: [address] [place] [address] Performed By: #### 2 4323-8, 84394-2, 89991-7 ####[facility] [id number] [place] [address] [place] Creatinine [Mass/Vol] 0.96 mg/dL Normal 0.58-0.96 [facility] Comment on above: Order Comment: Speci men Type: BLOOD SPECIMENOrdering Facility: [facility] Address: [address] [place] [address] Performed By: #### 2 4323-8, 85909-9, ####[facility] [id number] [address] [place] OF [facility] Creatinine and Glomerular filtration rate.predicted panel (S/P/Bld) 75 mL/min/1.73m??? Normal >=60 [facility] Comment on above: Order Comment: Speci men Type: BLOOD SPECIMENOrdering Facility: [facility] Address: [address] [place] [address] Result Comment: Sandie mated Glomerular Filtration Rate (eGFR) is calculated using the 2020 CKD-EPI creatinine equation. This equation utilizes serum creatinine, sex, and age as parameters. The creatinine assay has traceable calibration to isotope dilution-mass spectrometry. Refer to KDIGO guidelines for clinical interpretation. In patients with unstable renal function, e.g. those with acute kidney injury, the eGFR may not accurately reflect actual GFR. Performed By: #### 2 4323-8, 05757-8, 08739-0 ####[facility]ORY[facility]IA [id number] [place] [id number] [place] Glucose [Mass/Vol] 89 mg/dL Normal 74-99 [facility] Comment on above: Order Comment: Speci men Type: BLOOD SPECIMENOrdering Facility: [facility] Address: [address] [place] [address] Result Comment: The [place] Diabetes Association (ADA) provides guidance for cutoff values for fasting glucose and random glucose. The ADA defines fasting as no caloric intake for at least 8 hours. Fasting plasma glucose results between 100 to 125 mg/dL indicate increased risk for diabetes (prediabetes). Fasting plasma glucose results greater than or equal to 126 mg/dL meet the criteria for diagnosis of diabetes. In the absence of unequivocal hyperglycemia, results should be confirmed by repeat testing. In a patient with classic symptoms of hyperglycemia or hyperglycemic crisis, random plasma glucose results greater than or equal to 200 mg/dL meet the criteria for diagnosis of diabetes. Reference: Standards of Medical Care in Diabetes 2016, [place] Diabetes Association. Diabetes Care. 2016.39(Suppl 1). Performed By: #### 2 4323-8, 90055-3, 86796-9 ####[facility]ORYCLIA [id number] [place] [address] [place] Potassium [Moles/Vol] 4.1 mmol/L Normal 3.7-5.1 [facility] Comment on above: Order Comment: David horton Type: BLOOD SPECIMENOrdering Facility: [facility] Address: [address] [place] [address] Performed By: #### 2 4323-8, 22431-3, 09980-1 ####[facility]ORYCLIA [id number] [place] [address] [place] Protein [Mass/Vol] 6.9 g/dL Normal 6.3-8.0 [facility] Comment on above: Order Comment: David horton Type: BLOOD SPECIMENOrdering Facility: [facility] Address: [address] [place] [address] Performed By: #### 2 4323-8, 87495-9, 32241-5 ####[facility]ORYCLIA [id number] [place] [id number] [place] Sodium [Moles/Vol] 141 mmol/L Normal 136-144 [facility] Comment on above: Order Comment: David horton Type: BLOOD SPECIMENOrdering Facility: [facility] Address: [address] [place], [place] [address] Performed By: #### 2 4323-8, 86734-0, 08744-3 ####[facility]ORY[facility]IA [id number] [address] Urea nitrogen [Mass/Vol] 12 mg/dL Normal 7-21 [facility] Comment on above: Order Comment: Speci men Type: BLOOD SPECIMENOrdering Facility: [facility] Address: [address] [place] [address] Performed By: #### 2 4323-8, 75907-2, 93602-2 ####[facility]ORYCLIA [id number] [address] EBV capsid IgM Qn (S)on 06-13 EBV VCA IGM, QUAL Negative Normal Negative [facility] Comment on above: Order Comment: Speci men Type: BLOOD SPECIMENOrdering Facility: [facility] Address: [address] [place] [address] Result Comment: No s erological evidence of recent EBV infection. Performed By: #### 7 853-5, 7886-5 ####[facility] LABCLIA [id number] [address] [place] HISTORY PHYSICALon HISTORY PHYSICAL HNO ID: [id number] Author: DEX SUTHERLAND MD Service: Family Practice Author Type: Physician Type: H&P Filed: 07/05/2024 08:19 Note Text: HISTORY AND PHYSICAL EXAMINATION - INTERNAL MEDICINE PATIENT NAME: Michelle Mitchell SERVICE DATE: 07/05/2024 SERVICE TIME: 8:11 AM PRIMARY CARE PHYSICIAN: Dex Sutherland MD ASSESSMENT AND PLAN Principal Problem: Abdominal pain (POA: Yes) Assessment AND Plan: gi consult Active Problems: Leukocytosis (POA: Yes) Generalized abdominal pain (POA: Yes) Hepatomegaly (POA: Yes) Other ascites (POA: Yes) SUBJECTIVE CHIEF COMPLAINT: pain HISTORY OF PRESENT ILLNESS: Ms. Mitchell is a 43 year old female who presents with a past medical history of breast cancer, CHF, GERD, kidney stones, presents to the ED today for abdominal pain, patient's had abdominal pain on and off now for the last couple weeks, she has been seen at [facility] twice over the last few days and has had multiple workups including labs and CT and has been discharged home, patient states the pain is getting worse, she called her PCP who recommended the patient come to the ED for another evaluation and possible admission for pain, patient denies any fever, she rates pain as 9 out of 10, also complains of shortness of breath, denies any urinary symptoms. PAST MEDICAL HISTORY: PAST MEDICAL HISTORY Diagnosis Date Breast cancer (HCC) Age 17 treated with radiation, lumpectomy and masectomy CIS (carcinoma in situ of cervix) Colon polyp 07/2015 Congestive heart failure (HCC) HOCM DVT (deep venous thrombosis) (HCC) Endometrial cancer (HCC) treated with ablation Gastroesophageal reflux disease 08/17/2017 GERD (gastroesophageal reflux disease) Hypertr obst cardiomyop ICD (implantable cardiac defibrillator) battery depletion Kidney stone Migraine Ovarian epithelial cancer (HCC) This diagnosis unlikely as both ovaries present 05/09/2018 laparoscopy Pericarditis (HCC) PUD (peptic ulcer disease) Pulmonary embolism (HCC) 11/2016 Vaginal Pap smear with ASC-US 12/2016 PAST SURGICAL HISTORY: PAST SURGICAL HISTORY Procedure Laterality Date ANES PERMANENT TRANSVENOUS PACEMAKER INSERTION 2006 ICD implant, [facility] ANESTHESIA TUBAL LIGATION/TRANSECTION APPENDECTOMY 05/05/2014 , lap BREAST LUMPECTOMY HX Left 1997 with radiation CHOLECYSTECTOMY HX 08/2010 lap COLONOSCOPY AND POLYPECTOMY 08/07/2015 CONIZATION CERVIX W/WO DANDC RPR KNIFE/LASER CIS EGD 08/25/2017 Tabbaa- normal ENDOMETRIAL ABLATION WITH US GUIDANCE for abnormal uterine bleeding EXCISION OF CYST 08/23/2017 Dr. Velasco Excision of sebaceous cyst IMPLANTABLE CARDIAC DEFIB ICD 02/2009, 10/19/2016 LAPAROSCOPY DIAGNOSTIC 07/21/2015 Lysis of adhesions, MIDLINE INSERTION/CONSULT 01/18/2017 PAST SURGICAL HISTORY OF 05/24/2014 Laparoscopy, FAMILY HISTORY: FAMILY HISTORY Problem Relation Age of Onset Heart Mother heart valve replaced, was in a car accident in early age Breast Cancer Mother dx age 50 DVT Mother Heart Father IHSS, CHF, HOCM other (Paternal half-sister) Sister Paternal half-sister; on transplant list other (HOCM) Sister Heart Paternal Grandmother stroke, at age 43 Heart Paternal Grandfather at age 45 Heart Paternal Aunt at age 27 Heart Paternal Aunt at age 29 Cancer Sister 20 Brain Breast Cancer Sister 28 Colon Cancer Sister 26 DVT Sister Heart Sister Reported HOCM, heart transplant at 34 SOCIAL HISTORY: Social History Tobacco Use Smoking status: Every Day Current packs/day: 0.25 Average packs/day: 0.2 packs/day for 42.3 years (10.6 ttl pk-yrs) Types: Cigarettes Start date: 03/14/1982 Smokeless tobacco: Never Tobacco comments: since age 12 yrs Vaping Use Vaping status: Never Used Substance Use Topics Alcohol use: No Drug use: No MEDICATIONS: vortioxetine (TRINTELLIX) 10 mg tablet, Take 10 mg by mouth once daily., Disp: , Rfl: , 07/04/2024 albuterol HFA (VENTOLIN HFA) 90 mcg/actuation inhaler, Inhale 2 Puffs as instructed every 4 hours as needed for wheezing/shortness of breath., Disp: , Rfl: , Past Week ALPRAZolam (XANAX) 0.5 mg tablet, Take 0.5 mg by mouth twice daily., Disp: , Rfl: , 07/04/2024 zolpidem (AMBIEN) 10 mg Tab, Take 10 mg by mouth daily at bedtime., Disp: , Rfl: , 07/03/2024 oxyCODONE IR (ROXICODONE) 5 mg immediate release tablet, Take by mouth every 8 hours as needed for pain., Disp: , Rfl: 0 sulfamethoxazole-trimeth oprim (BACTRIM DS) 800-160 mg per tablet, Take 1 tablet by mouth two times a day., Disp: , Rfl: ALLERGIES: ALLERGIES Allergen Reactions Prozac [Fluoxetine * Other: See Comments suicidal ideations Ativan [Lorazepam] Vomiting Azithromycin Intolerance [place] Anaphylaxis [place] Anaphylaxis pickles Fish Anaphylaxis Levofloxacin In D5w Swelling, Itching IV si (more content not included)... Normal [facility] HSV PCR, MISCELLANEOUS SPECI MEN TYPESon 07-05-2024 HERPES SIMPLEX VIRUS SOURCE Plasma Normal [facility] Comment on above: Order Comment: Speci men Type: BLOOD SPECIMEN [facility] Address: [address] [place] [address] Performed By: #### 5 8410-2 #### [facility] CLIA [id number] [address] HSV 1 SUBTYPE BY PCR Not detected Normal [facility] Comment on above: Order Comment: Speci men Type: BLOOD SPECIMEN [facility] Address: [address] [place] [address] Performed By: #### 5 8410-2 #### [facility] CLIA [id number] [address] HSV 2 SUBTYPE BY PCR Not detected Normal [facility] Comment on above: Order Comment: Speci men Type: BLOOD SPECIMEN [facility] Address: [address] [place] [address] Result Comment: INTE RPRETIVE INFORMATION: HSV-1 and HSV-2 Subtype by PCR A negative result does not rule out the presence of PCR inhibitors in the patient specimen or test-specific nucleic acid in concentrations below the level of detection by this test. This test was developed and its performance characteristics determined by [employer]. It has not been cleared or approved by the US Food and Drug Administration. This test was performed in a CLIA certified laboratory and is intended for clinical purposes. Performed By: [facility] [address] [place] [address] Vb Net Developer: José Bursn MD, PhD CLIA Number: [id number] Performed By: #### 5 8410-2 #### [facility] CLIA [id number] [address] IgA SerPl-mCncon 07-05-2024 IgA [Mass/Vol] 97 mg/dL Normal 70-400 [facility] Comment on above: Order Comment: Speci men Type: BLOOD SPECIMEN [facility] Address: [address] [place] [address] Performed By: #### 5 8410-2 #### [facility] CLIA [id number] [address] Iron and Iron binding capaci ty panelon 07-05-2024 Iron [Mass/Vol] 77 ug/dL Normal 41-186 [facility] Comment on above: Order Comment: Speci men Type: BLOOD SPECIMENOrdering Facility: [facility] Address: [address] [place] [address] Performed By: #### 2 4323-8, 53363-7, 01773-7 ####[facility]ORYCLIA [id number] [address] STATES [facility] Iron binding capacity [Mass/Vol] 411 ug/dL High 232-386 [facility] Comment on above: Order Comment: Speci men Type: BLOOD SPECIMENOrdering Facility: [facility] Address: [address] [place] [address] Performed By: #### 2 4323-8, 91543-2, 14350-4 ####[facility]ORYCLIA [id number] [address] [place] Iron/TIBC [Molar ratio] 18.7 % Normal 15.0-57.0 [facility] Comment on above: Order Comment: Speci men Type: BLOOD SPECIMENOrdering Facility: [facility] Address: [address] [place] [address] Performed By: #### 2 4323-8, 44863-3, 12967-4 ####[facility]ATORYCLIA [id number] [address] STATES OF [facility] Lipid 1996 panelon 5 Cholesterol [Mass/Vol] 172 mg/dL Normal <200 [facility] Comment on above: Order Comment: Speci men Type: BLOOD SPECIMENOrdering Facility: [facility] Address: [address] [place] [address] Result Comment: <200 mg/dL, Desirable 200-239 mg/dL, Borderline high >239 mg/dL, High Performed By: #### 2 4323-8, 51780-2, 95646-0 ####[facility]ORYCLIA [id number] [address] [place] Cholesterol in HDL [Mass/Vol] 36 mg/dL Low >39 [facility] Comment on above: Order Comment: Speci men Type: BLOOD SPECIMENOrdering Facility: [facility] Address: [address] [place] [address] Result Comment: 40-5 9 mg/dL, Acceptable >59 mg/dL, High: Negative risk factor for coronary heart disease <40 mg/dL, Low: Positive risk factor for coronary heart disease Performed By: #### 2 4323-8, 53345-3, 29191-3 ####[facility]ORYCLIA [id number] [place] [address] [place] Cholesterol in LDL [Mass/Vol] 108 mg/dL High <100 [facility] Comment on above: Order Comment: Speci men Type: BLOOD SPECIMENOrdering Facility: [facility] Address: [address] [place] [address] Result Comment: <100 mg/dL, Optimal 100-129 mg/dL, Near optimal/above optimal 130-159 mg/dL, Borderline high 160-189 mg/dL, High >189 mg/dL, Very high Secondary prevention optimal LDL Cholesterol levels are recommended to be <70 mg/dL LDL cholesterol is calculated using the [place]oddard-NIH equation. Performed By: #### 2 4323-8, 01885-1, ####[facility]ATORYCLIA [id number] [place] [address] [place] Cholesterol in LDL/Cholesterol in HDL [Mass ratio] 3.00 {ratio} High <2.54 [facility] Comment on above: Order Comment: David sol Type: BLOOD SPECIMENOrdering Facility: [facility] Address: [address] [place] [address] Result Comment: Refe rence: 1. National Cholesterol Education Program ATP III Guideline At-A-Glance Quick Desk Reference: National Heart, Lung, and Blood Prue. National Institutes of Health. 2001: NIH Publication No. 01-3305. 2. An International Atherosclerosis Society position paper: global recommendations for the management of dyslipidemia: executive summary, Atherosclerosis. 2014: 232(2):410-413. Performed By: #### 2 4323-8, 12076-7, 79944-3 ####[facility]ATORYCLIA [id number] [place] [id number] [place] Cholesterol in VLDL [Mass/Vol] 26 mg/dL Normal <30 [facility] Comment on above: Order Comment: Speci men Type: BLOOD SPECIMENOrdering Facility: [facility] Address: [address] [place] [address] Performed By: #### 2 4323-8, 21054-4, 00072-8 ####[facility]ATORYCLIA [id number] [address] Cholesterol non HDL [Mass/Vol] 136 mg/dL High <130 [facility] Comment on above: Order Comment: Speci men Type: BLOOD SPECIMENOrdering Facility: [facility] Address: [address] [place] [address] Result Comment: <130 mg/dL, Optimal 130-159 mg/dL, Near optimal/above optimal 160-189 mg/dL, Borderline high 190-219 mg/dL, High >219 mg/dL, Very high Secondary prevention optimal non HDL Cholesterol levels are recommended to be <100 mg/dL Performed By: #### 2 4323-8, 32490-6, 65609-0 ####[facility]ORYCLIA [id number] [address] Cholesterol.total/Choles terol in HDL [Mass ratio] 4.78 {ratio} Normal <5.10 [facility] Comment on above: Order Comment: Speci men Type: BLOOD SPECIMENOrdering Facility: [facility] Address: [address] [place] [address] Performed By: #### 2 4323-8, 05874-2, 88835-3 ####[facility]ATORYCLIA [id number] [address] [place] FASTING TIME Normal [facility] Comment on above: Order Comment: Speci men Type: BLOOD SPECIMENOrdering Facility: [facility] Address: [address] [place], [place] [address] Result Comment: Unkn own Performed By: #### 2 4323-8, 00342-3, 58758-4 ####[facility]ATORYCLIA [id number] [address] Triglyceride [Mass/Vol] 157 mg/dL High <150 [facility] Comment on above: Order Comment: Speci men Type: BLOOD SPECIMENOrdering Facility: [facility] Address: [address] [place] [address] Result Comment: <150 mg/dL, Normal 150-199 mg/dL, Borderline high 200-499 mg/dL, High >499 mg/dL, Very high Performed By: #### 2 4323-8, 36089-3, 89540-9 ####[facility]ORYCLIA [id number] [place] [address] [place] Mitochondria Ab IF Ql (S)on 07-05-2024 Mitochondria M2 Ab IA Qn (S) 4.4 Units Normal <=20.0 [facility] Comment on above: Order Comment: Speci men Type: BLOOD SPECIMENOrdering Facility: [facility] Address: [address] [place] [address] Performed By: #### 1 4252-1, 11942-6 ####[facility] LABCLIA [id number] [address] [place] Mitochondria M2 Ab Ql (S) Negative Normal Negative [facility] Comment on above: Order Comment: Speci men Type: BLOOD SPECIMENOrdering Facility: [facility] Address: [address] [place] [address] Result Comment: Anti -mitochondrial antibody test is used as an aid in diagnosis of primary biliary cholangitis. Clinical correlation is required. Performed By: #### 1 4252-1, 42523-3 ####[facility] LABCLIA [id number] [address] [place] Smooth muscle Ab Ql (S)on ACTIN SMOOTH MUSCLE IGG QUALITATIVE Negative Normal Negative [facility] Comment on above: Order Comment: Speci men Type: BLOOD SPECIMENOrdering Facility: [facility] Address: [address] [place] [address] Performed By: #### 1 4252-1, 24604-1 ####[facility] LABCLIA [id number] [place] [id number] [place] ACTIN SMOOTH MUSCLE IGG QUANTITATIVE 11 Units Normal <20 [facility] Comment on above: Order Comment: Speci men Type: BLOOD SPECIMENOrdering Facility: [facility] Address: [address] [place] [address] Performed By: #### 1 4252-1, 45299-8 ####[facility] LABCLIA [id number] FLACO MONSON [address] ALLIED HEALTHon 07-04-2024 ALLIED HEALTH HNO ID: [id number] Author: SAMSON CRUM CT Service: Radiology Author Type: Technologist Type: Allied Health Filed: 07/04/2024 22:27 Note Text: Radiology Service Progress Note PATIENT NAME: Michelle Mitchell DATE OF SERVICE: July 04, 2024 TIME: 10:25 PM PATIENT IDENTITY VERIFICATION COMPLETED USING TWO (2) IDENTIFIERS: Name and Date of confirmed by patient verbally and Name and Date of confirmed by identification band. FALL SCREENING: Has the patient had 2 falls in the last year or 1 fall with injury or currently using an Ambulatory Assistive Device (Walker, Cane, Wheelchair, Crutches, etc.)? Emergency Room Patient: Screened in ED PATIENT GENDER DATA: Assigned female at . status: : No status: N/A PATIENT RELEVANT IMPLANT DATA REVIEWED: Not Applicable PATIENT PRESENTS WITH AN IMPLANTABLE OR ATTACHED REHABILITATION TECH: N/A RADIOLOGY DEPARTMENT: Ultrasound PERIPHERAL IV DATA: Not applicable SIGNED BY: MIRACLE Black July 04, 2024 10:25 PM [facility] ALLIED HEALTH HNO ID: [id number] Author: KEVEN CORNELIUS CT Service: Radiology Author Type: Technologist Type: Allied Health Filed: 07/04/2024 17:50 Note Text: Radiology Service Progress Note DATE OF SERVICE: July 04, 2024 TIME: 5:50 PM PATIENT IDENTITY VERIFICATION COMPLETED USING TWO (2) STANDARD IDENTIFIERS: Name and Date of confirmed by patient verbally and Name and Date of confirmed by identification band. FALL SCREENING: Has the patient had 2 falls in the last year or 1 fall with injury or currently using an Ambulatory Assistive Device (Walker, Cane, Wheelchair, Crutches, etc.)? Emergency Room Patient: Screened in ED PATIENT GENDER DATA: Assigned female at . status: : No status: NO. PATIENT RELEVANT IMPLANT DATA REVIEWED: Not Applicable PATIENT PRESENTS WITH AN IMPLANTABLE OR ATTACHED REHABILITATION TECH: No ALLERGIES: Reviewed and unchanged CONTRAST ALLERGY: NO. EXAM: CT -CONTRAST INDUCED NEPHROPATHY RISK FACTORS: Not applicable CREATININE: Creatinine Date Value Ref Range Status 07/04/2024 0.82 0.58 - 0.96 mg/dL Final 05/21/2024 0.94 0.58 - 0.96 mg/dL Final 05/20/2024 0.90 0.58 - 0.96 mg/dL Final Estimated Glomerular Filtration Rate Date Value Ref Range Status 07/04/2024 91 >=60 mL/min/1.73m? Final Comment: Estimated Glomerular Filtration Rate (eGFR) is calculated using the 2020 CKD-EPI creatinine equation. This equation utilizes serum creatinine, sex, and age as parameters. The creatinine assay has traceable calibration to isotope dilution-mass spectrometry. Refer to KDIGO guidelines for clinical interpretation. In patients with unstable renal function, e.g. those with acute kidney injury, the eGFR may not accurately reflect actual GFR. eGFR- Date Value Ref Range Status 04/26/2021 >60 >59 Final P.O.C.T. RESULTS: POC done: Yes, See Lab Tab July 04, 2024 TREATMENT: N/A PERIPHERAL IV DATA: Inpatient - refer to [facility] documentation RADIOLOGY DEPARTMENT: CT; Exam(s) Completed: Chest Abdomen Pelvis SIGNATURE: MIRACLE Brody PATIENT NAME: Michelle Mitchell DATE: July 04, 2024 TIME: 5:50 PM Normal [facility] BETA HCG, QUANTITATIVE FOR E Don 07-04-2024 HCG.beta subunit Qn 0.6 m[IU]/mL Normal <5.0 [facility] Comment on above: Order Comment: Speci men Type: BLOOD SPECIMENOrdering Facility: [facility] Address: [address] [place] [address] Result Comment: Oskar landis Performed By: #### H CGED, 3040-3, 24208-8 ####[facility]ORYCLIA [id number] [place] [address] [place] Bilirub SerPl-mCncon 025 Bilirubin [Mass/Vol] 0.6 mg/dL Normal 0.2-1.3 [facility] Comment on above: Order Comment: Speci men Type: BLOOD SPECIMENOrdering Facility: [facility] Address: [address] [place] [address] Performed By: #### 1 975-2, 29648-5, 14975-7, 5195-3 ####[facility] LABCLIA [id number] [address] [place] C. trachomatis+N. gonorrhoea e DNA BIMAL+probe Ql (Unsp spec)on 07-04-2024 C. trachomatis rRNA BIMAL+probe Ql (Unsp spec) Not detected Normal Not detected [facility] Comment on above: Order Comment: Speci men Type: BLOOD SPECIMEN [facility] Address: [address] [place] [address] Performed By: #### 5 8410-2 #### [facility] CLIA [id number] 1000 [place] [address] [place] N. gonorrhoeae rRNA BIMAL+probe Ql (Unsp spec) Not detected Normal Not detected [facility] Comment on above: Order Comment: Speci men Type: BLOOD SPECIMEN [facility] Address: [address] [place] [address] Performed By: #### 5 8410-2 #### [facility] CLIA [id number] [address] [place] [address] [place] CBC W Auto Differential pane l (Bld)on 07-04-2024 Basophils (Bld) [#/Vol] 0.05 10*3/uL Normal <0.11 [facility] Comment on above: Order Comment: Speci men Type: BLOOD SPECIMEN [facility] Address: [address] [place] [address] Performed By: #### 5 8410-2 #### [facility] CLIA [id number] [address] [place] Basophils/100 WBC (Bld) 0.3 % Normal [facility] Comment on above: Order Comment: Speci men Type: BLOOD SPECIMEN [facility] Address: [address] [place] [address] Performed By: #### 5 8410-2 #### [facility] CLIA [id number] [address] [place] Differential cell count method Nom (Bld) Auto Normal [facility] Comment on above: Order Comment: Speci men Type: BLOOD SPECIMEN [facility] Address: [address] [place] [address] Performed By: #### 5 8410-2 #### [facility] CLIA [id number] [address] [place] [address] [place] Eosinophils (Bld) [#/Vol] 0.12 10*3/uL Normal <0.46 [facility] Comment on above: Order Comment: Speci men Type: BLOOD SPECIMEN [facility] Facility[facility] Address: [address] [place] [address] Performed By: #### 5 8410-2 #### [facility] CLIA [id number] [address] [place] Eosinophils/100 WBC (Bld) 0.8 % Normal [facility] Comment on above: Order Comment: Speci men Type: BLOOD SPECIMEN [facility] Address: [address] [place], [place] [address] Performed By: #### 5 8410-2 #### [facility] CLIA [id number] [address] [place] Erythrocyte distribution width (RBC) [Ratio] 14.7 % Normal 11.5-15.0 [facility] Comment on above: Order Comment: Speci men Type: BLOOD SPECIMEN Ordering Facility: [facility] Address: [address] [place] [address] Performed By: #### 5 8410-2 #### [facility] CLIA [id number] [address] [place] Hematocrit (Bld) [Volume fraction] 43.5 % Normal 36.0-46.0 [facility] Comment on above: Order Comment: Speci men Type: BLOOD SPECIMEN Ordering Facility: [facility] Address: [address] [place] [address] Performed By: #### 5 8410-2 #### [facility] CLIA [id number] [address] [place] [address] [place] Hemoglobin (Bld) [Mass/Vol] 14.0 g/dL Normal 11.5-15.5 [facility] Comment on above: Order Comment: Speci men Type: BLOOD SPECIMEN Ordering Facility: [facility] Address: [address] [place] [address] Performed By: #### 5 8410-2 #### [facility] CLIA [id number] [address] [place] [address] [place] Immature granulocytes (Bld) [#/Vol] 0.08 10*3/uL Normal <0.10 [facility] Comment on above: Order Comment: Speci men Type: BLOOD SPECIMEN Ordering Facility: [facility] Address: [address] [place] [address] Performed By: #### 5 8410-2 #### [facility] CLIA [id number] [address] OF [place] Immature granulocytes/100 WBC (Bld) 0.5 % Normal [facility] Comment on above: Order Comment: Speci men Type: BLOOD SPECIMEN Ordering Facility: [facility] Address: [address] [place] [address] Performed By: #### 5 8410-2 #### [facility] CLIA [id number] [address] [place] Lymphocytes (Bld) [#/Vol] 1.38 10*3/uL Normal 1.00-4.00 [facility] Comment on above: Order Comment: Speci men Type: BLOOD SPECIMEN Ordering Facility: [facility] Address: [address] [place] [address] Performed By: #### 5 8410-2 #### [facility] CLIA [id number] [address] Lymphocytes/100 WBC (Bld) 9.4 % Normal [facility] Comment on above: Order Comment: Speci men Type: BLOOD SPECIMEN Ordering Facility: [facility] Address: [address] [place] [address] Performed By: #### 5 8410-2 #### [facility] CLIA [id number] [address] MCH (RBC) [Entitic mass] 31.7 pg Normal 26.0-34.0 [facility] Comment on above: Order Comment: Speci men Type: BLOOD SPECIMEN Ordering Facility: [facility] Address: [address] [place] [address] Performed By: #### 5 8410-2 #### [facility] CLIA [id number] [address] MCHC (RBC) [Mass/Vol] 32.2 g/dL Normal 30.5-36.0 [facility] Comment on above: Order Comment: Speci men Type: BLOOD SPECIMEN Ordering Facility: [facility] Address: [address] [place] [address] Performed By: #### 5 8410-2 #### [facility] CLIA [id number] [address] MCV (RBC) [Entitic vol] 98.6 fL Normal 80.0-100.0 [facility] Comment on above: Order Comment: Speci men Type: BLOOD SPECIMEN Ordering Facility: [facility] Address: [address] [place] [address] Performed By: #### 5 8410-2 #### [facility] CLIA [id number] [address] Monocytes (Bld) [#/Vol] 0.61 10*3/uL Normal <0.87 [facility] Comment on above: Order Comment: Speci men Type: BLOOD SPECIMEN Ordering Facility: [facility] Address: [address] [place] [address] Performed By: #### 5 8410-2 #### [facility] CLIA [id number] [address] Monocytes/100 WBC (Bld) 4.1 % Normal [facility] Comment on above: Order Comment: Speci men Type: BLOOD SPECIMEN Ordering Facility: [facility] Address: [address] [place] [address] Performed By: #### 5 8410-2 #### [facility] CLIA [id number] [address] [place] [address] [place] Neutrophils (Bld) [#/Vol] 12.51 10*3/uL High 1.45-7.50 [facility] Comment on above: Order Comment: Speci men Type: BLOOD SPECIMEN Ordering Facility: [facility] Address: [facility] [place] [address] Performed By: #### 5 8410-2 #### [facility] CLIA [id number] [address] [place] Neutrophils/100 WBC (Bld) 84.9 % Normal [facility] Comment on above: Order Comment: Speci men Type: BLOOD SPECIMEN Ordering Facility: [facility] Address: [address] [place] [address] Performed By: #### 5 8410-2 #### [facility] CLIA [id number] [address] [place] Nucleated RBC (Bld) [#/Vol] 10*3/uL Normal <0.01 [facility] Comment on above: Order Comment: Speci men Type: BLOOD SPECIMEN Ordering Facility: [facility] Address: [address] [place] [address] Performed By: #### 5 8410-2 #### [facility] CLIA [id number] [address] Nucleated RBC/100 WBC (Bld) [Ratio] 0.0 /100 WBC Normal [facility] Comment on above: Order Comment: Speci men Type: BLOOD SPECIMEN Ordering Facility: [facility] Address: [address] [place] [address] Performed By: #### 5 8410-2 #### [facility] CLIA [id number] [address] [place] Platelet mean volume (Bld) [Entitic vol] 10.4 fL Normal 9.0-12.7 [facility] Comment on above: Order Comment: Speci men Type: BLOOD SPECIMEN Ordering Facility: [facility] Address: [address] [place] [address] Performed By: #### 5 8410-2 #### [facility] CLIA [id number] [address] Platelets (Bld) [#/Vol] 251 10*3/uL Normal 150-400 [facility] Comment on above: Order Comment: Speci men Type: BLOOD SPECIMEN Ordering Facility: [facility] Address: [address] [place] [address] Performed By: #### 5 8410-2 #### [facility] CLIA [id number] [address] [place] RBC (Bld) [#/Vol] 4.41 10*6/uL Normal 3.90-5.20 [facility] Comment on above: Order Comment: Speci men Type: BLOOD SPECIMEN Ordering Facility: [facility] Address: [address] [place] [address] Performed By: #### 5 8410-2 #### [facility] CLIA [id number] [address] OF [facility] WBC (Bld) [#/Vol] 14.75 10*3/uL High 3.70-11.00 [facility] Comment on above: Order Comment: Speci men Type: BLOOD SPECIMEN Ordering Facility: [facility] Address: [address] [place] [address] Performed By: #### 5 8410-2 #### [facility] CLIA [id number] [address] OF [facility] CT ABD/PEL W IVCONon 025 CT ABD/PEL W IVCON * * *Final Report* * * DATE OF EXAM: Jul 04 2024 6:04PM [facility] 0530 - CT ABD/PEL W IVCON / PROCEDURE REASON: Abdominal abscess/infection suspected * * * * Physician Interpretation * * * * EXAMINATION: CT ABDOMEN AND PELVIS WITH IV CONTRAST CLINICAL HISTORY: Abdominal pain. Nausea and vomiting TECHNIQUE: CT of the abdomen and pelvis was performed using standard technique, scanning from just above the dome of the diaphragm to the symphysis pubis. MQ: CTAP_3 Contrast: IV: 100 ml of Omnipaque 350 : ml of CT Radiation dose: Integrated Dose-length product (DLP) for this visit = 440 mGy*cm. CT Dose Reduction Employed: Automated exposure control(AEC) and iterative recon COMPARISON: 04/20/2018 RESULT: Liver: Heterogeneous appearance, likely due to congestion and early imaging after contrast administration. No discrete mass. Mild hepatomegaly Biliary: No bile duct dilation. Gallbladder is surgically absent Spleen: No mass. No splenomegaly. Pancreas: No mass or duct dilation. Adrenals: No mass. Kidneys: No mass, calculus or hydronephrosis. GI tract: No dilation or wall thickening. Mild colonic diverticulosis. History of appendectomy Lymph nodes: No abdominal or pelvic lymphadenopathy. Mesentery/Peritoneum: Small volume ascites, mostly perihepatic in location Retroperitoneum: No mass. Vasculature: - Abdominal aorta and iliac arteries: Atherosclerotic calcifications without aneurysm. - Celiac and SMA: Patent without stenosis. - Portal venous system (SMV, splenic vein, portal vein and branches): Patent. - Hepatic veins: Incompletely opacified, likely due to early phase of enhancement. Pelvis: Moderate ascites in the posterior cul-de-sac. No mass or focal fluid collection Bones/Soft Tissues: No significant finding. Lower thorax: A chest CT performed will be reported separately. Localizer images: No additional findings. IMPRESSION: Mild hepatomegaly, new compared to previous. Ascites, most prominent in the pelvis Assembly Department Supervisor: KIM Transcribe Date/Time: Jul 04 2024 7:04P Dictated by : MICHELLE MUÑOZ MD This examination was interpreted and the report reviewed and electronically signed by: MICHELLE MUÑOZ MD on Jul 04 2024 7:13PM EST [id number] [facility] CTA CHEST (NON GATED) W IVCO N PEon 07-04-2024 CTA CHEST (NON GATED) W IVCON PE * * *Final Report* * * DATE OF EXAM: Jul 04 2024 6:04PM [facility] 0564 - CTA CHEST (NON GATED) W IVCON PE / PROCEDURE REASON: Pulmonary embolism (PE) suspected, high prob * * * * Physician Interpretation * * * * EXAMINATION: CHEST CTA (NON GATED) WITH CONTRAST (PULMONARY EMBOLISM PROTOCOL) Clinical History: Chest and abdominal pain. History of breast and endometrial cancer Technique: Spiral CT acquisition of the chest from the thoracic inlet to the upper abdomen following IV contrast. Axial 1 and 3 mm thick slices plus coronal and sagittal reformatted images. MQ: CTCP_5 Contrast: 100 mL Omnipaque [address] Radiation dose: Integrated Dose-length product (DLP) for this visit = 440 mGy*cm CT Dose Reduction Employed: Automated exposure control(AEC) and iterative recon CTA: Post-processed images (Maximum intensity Projection (MIP), Volume-rendered (VR), or Surface shaded display images (SSD) were created, reviewed and archived. Comparison: 05/15/2024 RESULT: Limitations: None. Evaluation for thromboembolic disease: - Right heart chambers: No thromboembolic disease. - Main pulmonary arteries: No thromboembolic disease. - Lobar pulmonary arteries: No thromboembolic disease. - Segmental pulmonary arteries: No thromboembolic disease. - Subsegmental pulmonary arteries: No thromboembolic disease. - Additional pulmonary artery findings: The main pulmonary artery is normal in caliber. Lines, tubes, and devices: Right-sided pacemaker with right ventricular ICD lead Lung parenchyma and airways: Septal thickening, greater than previous likely due to mild interstitial pulmonary edema. Mild bronchial wall thickening without mucous plugging. Mild right base compressive atelectasis. No consolidation. No suspicious pulmonary nodule. The central airways are patent. Pleural space: Small right pleural effusion with fluid trapped in the major fissure, mildly larger than previous. Small left pleural effusion, larger than previous Lower neck, lymph nodes, and mediastinum: The imaged thyroid gland is normal. No lymphadenopathy in the supraclavicular, axillary, or mediastinal regions. Stable right hilar lymphadenopathy. Heart, pericardium, and thoracic vessels: The thoracic aorta is normal in caliber. Generalized cardiomegaly with more significant left atrial enlargement. No coronary artery atherosclerotic calcifications are noted, although the study is not optimized for coronary assessment. Trace pericardial effusion, little changed. Bones and soft tissues: No destructive bone lesion. T8 vertebral hemangioma. Chest wall is unremarkable. Upper abdomen: CT abdomen/pelvis dictated separately Localizer images: No additional findings. IMPRESSION: No CT evidence of pulmonary embolism. Cardiomegaly with mild interval increase in interstitial edema and bilateral pleural effusions, findings suggesting congestive heart failure or fluid overload. Assembly Department Supervisor: KIM Transcribe Date/Time: Jul 04 2024 6:47P Dictated by : MICHELLE MUÑOZ MD This examination was interpreted and the report reviewed and electronically signed by: MICHELLE MUÑOZ MD on Jul 04 2024 7:02PM EST [id number] Normal [facility] Comprehensive metabolic 2000 panelon 07-04-2024 Albumin [Mass/Vol] 3.9 g/dL Normal 3.9-4.9 [facility] Comment on above: Order Comment: Speci men Type: BLOOD SPECIMENOrdering Facility: [facility] Address: [address] [place] [address] Performed By: #### H CGED, 3040-3, 50847-8 ####[facility] [id number] [place] [address] [place] ALP [Catalytic activity/Vol] 122 U/L Normal 34-123 [facility] Comment on above: Order Comment: Speci men Type: BLOOD SPECIMENOrdering Facility: [facility] Address: [address] [place] [address] Performed By: #### H KALED, 3040-3, 40268-1 ####[facility] [id number] [address] [place] ALT [Catalytic activity/Vol] 40 U/L High 7-38 [facility] Comment on above: Order Comment: Speci men Type: BLOOD SPECIMENOrdering Facility: [facility] Address: [address] [place] [address] Performed By: #### H KALED, 3040-3, 31588-3 ####[facility] [id number] [address] STATES [facility] Anion gap [Moles/Vol] 11 mmol/L Normal 8-15 [facility] Comment on above: Order Comment: Speci men Type: BLOOD SPECIMENOrdering Facility: [facility] Address: [address] [place] [address] Performed By: #### H CGED, 3040-3, 75694-4 ####[facility] [id number] [address] [place] AST [Catalytic activity/Vol] 40 U/L High 13-35 [facility] Comment on above: Order Comment: Speci men Type: BLOOD SPECIMENOrdering Facility: [facility] Address: [address] [place] [address] Performed By: #### H CGED, 3040-3, 66585-5 ####[facility] [id number] [place] [address] [place] Bilirubin [Mass/Vol] 0.7 mg/dL Normal 0.2-1.3 [facility] Comment on above: Order Comment: Speci men Type: BLOOD SPECIMENOrdering Facility: [facility] Address: [address] [place] [address] Performed By: #### H CGED, 0-3, 16248-1 ####[facility] [id number] [place] [address] [place] Calcium [Mass/Vol] 8.8 mg/dL Normal 8.5-10.2 [facility] Comment on above: Order Comment: Speci men Type: BLOOD SPECIMENOrdering Facility: [facility] Address: [facility] [address] Performed By: #### H CGED, 0-3, 11773-9 ####[facility] [id number] [place] [address] [place] Chloride [Moles/Vol] 106 mmol/L Normal 98-107 [facility] Comment on above: Order Comment: Speci men Type: BLOOD SPECIMENOrdering Facility: [facility] Address: [facility] [place] [address] Performed By: #### H CGED, 0-3, 08530-1 ####[facility] [id number] [place] [address] [place] CO2 [Moles/Vol] 21 mmol/L Low 22-30 [facility] Comment on above: Order Comment: Speci men Type: BLOOD SPECIMENOrdering Facility: [facility] Address: [facility] [place] [address] Performed By: #### H CGED, 0-3, 31187-0 ####[facility] [id number] [place] [address] [place] Creatinine [Mass/Vol] 0.82 mg/dL Normal 0.58-0.96 [facility] Comment on above: Order Comment: David horton Type: BLOOD SPECIMENOrdering Facility: [facility] Address: [address] [place] [address] Performed By: #### H CGED, 3040-3, 07027-7 ####[facility] [id number] [place] [id number] [place] Creatinine and Glomerular filtration rate.predicted panel (S/P/Bld) 91 mL/min/1.73m??? Normal >=60 [facility] Comment on above: Order Comment: David horton Type: BLOOD SPECIMENOrdering Facility: [facility] Address: [address] [place] [address] Result Comment: Sandie mated Glomerular Filtration Rate (eGFR) is calculated using the 2020 CKD-EPI creatinine equation. This equation utilizes serum creatinine, sex, and age as parameters. The creatinine assay has traceable calibration to isotope dilution-mass spectrometry. Refer to KDIGO guidelines for clinical interpretation. In patients with unstable renal function, e.g. those with acute kidney injury, the eGFR may not accurately reflect actual GFR. Performed By: #### H CGED, 3040-3, 05015-1 ####[facility] [id number] [place] [id number] [place] Glucose [Mass/Vol] 78 mg/dL Normal 74-99 [facility] Comment on above: Order Comment: David horton Type: BLOOD SPECIMENOrdering Facility: [facility] Address: [address] [place] [address] Result Comment: The [place] Diabetes Association (ADA) provides guidance for cutoff values for fasting glucose and random glucose. The ADA defines fasting as no caloric intake for at least 8 hours. Fasting plasma glucose results between 100 to 125 mg/dL indicate increased risk for diabetes (prediabetes). Fasting plasma glucose results greater than or equal to 126 mg/dL meet the criteria for diagnosis of diabetes. In the absence of unequivocal hyperglycemia, results should be confirmed by repeat testing. In a patient with classic symptoms of hyperglycemia or hyperglycemic crisis, random plasma glucose results greater than or equal to 200 mg/dL meet the criteria for diagnosis of diabetes. Reference: Standards of Medical Care in Diabetes 2016, [place] Diabetes Association. Diabetes Care. 2016.39(Suppl 1). Performed By: #### H CGED, 3040-3, 85485-1 ####[facility] [id number] [place] [address] [place] Potassium [Moles/Vol] 4.4 mmol/L Normal 3.7-5.1 [facility] Comment on above: Order Comment: Speci men Type: BLOOD SPECIMENOrdering Facility: [facility] Address: [address] [place] [address] Performed By: #### H CGED, 3040-3, 91311-9 ####[facility] [id number] [place] [address] [place] Protein [Mass/Vol] 6.8 g/dL Normal 6.3-8.0 [facility] Comment on above: Order Comment: Speci men Type: BLOOD SPECIMENOrdering Facility: [facility] Address: [address] [place] [address] Performed By: #### H CGED, 3040-3, 82917-4 ####[facility] [id number] [address] [place] Sodium [Moles/Vol] 138 mmol/L Normal 136-144 [facility] Comment on above: Order Comment: Speci men Type: BLOOD SPECIMENOrdering Facility: [facility] Address: [address] [place] [address] Performed By: #### H CGED, 3040-3, 26942-3 ####[facility] [id number] [place] [id number] [place] Urea nitrogen [Mass/Vol] 16 mg/dL Normal 7-21 [facility] Comment on above: Order Comment: Speci men Type: BLOOD SPECIMENOrdering Facility: [facility] Address: [address] [place] [address] Performed By: #### H CGED, 3040-3, 03087-1 ####[facility] [id number] [place] [address] [place] ED NOTEon 07-04-2024 ED NOTE HNO ID: [id number] Author: JOSIE RODAS RN Service: Nursing Author Type: Registered Nurse Type: ED Notes Filed: 07/04/2024 21:35 Note Text: Pt is tearful at times Normal [facility] ED NOTE HNO ID: [id number] Author: JOSIE RODAS RN Service: Nursing Author Type: Registered Nurse Type: ED Notes Filed: 07/04/2024 21:34 Note Text: Pt has completed the ultrasound she has ambulated to the bathroom gait is steady pt states she still has abd pain and feels bloated Normal [facility] ED NOTE HNO ID: [id number] Author: JOSIE RODAS RN Service: Nursing Author Type: Registered Nurse Type: ED Notes Filed: 07/04/2024 21:16 Note Text: Pt has tolerated the ultrasound with mild distress Normal [facility] ED NOTE HNO ID: [id number] Author: JOSIE RODAS RN Service: Nursing Author Type: Registered Nurse Type: ED Notes Filed: 07/04/2024 20:01 Note Text: Pelvic exam per MARCIO Cueva pt tolerated fair Sample was sent Normal [facility] ED NOTE HNO ID: [id number] Author: JOSIE RODAS RN Service: Nursing Author Type: Registered Nurse Type: ED Notes Filed: 07/04/2024 19:47 Note Text: PA is bedside Normal [facility] ED NOTE HNO ID: [id number] Author: JOSIE RODAS RN Service: Nursing Author Type: Registered Nurse Type: ED Notes Filed: 07/04/2024 19:08 Note Text: Pt is in a position of comfort Normal [facility] ED PROGRESS NOTE (PROVIDER)o n 07-04-2024 ED PROGRESS NOTE (PROVIDER) HNO ID: [id number] Author: SHANNA TSE MD Service: Emergency Medicine Author Type: Physician Type: ED PROGRESS NOTE (PROVIDER) Filed: 07/04/2024 20:15 Note Text: ED CONTINUATION OF CARE NOTE Code Status: Prior Assumed care from: Sd Jose PA-C at 7 pm Presentation / Findings / Interventions / Plan / Items to Follow Up: Briefly, this is a 43 yo female coming in to the ED for a 3rd visit for ongoing intractable abdominal pain. Reportedly, was seen at [place] on two occasions with labs and CTs (non of which we can see in EMR) thought to possibly have Crohn's. PCP is Dr. Sutherland who directed patient to come to [place]. At time of sign out patient is requiring 2nd dose of narcotic pain medication while awaiting CTs. Patient has extensive pmh including Breast/endometrial/ovari an cancer hx, prior DVT/PE not currently on AC from what I can tell, hypertrophic nonobstructive cardiomyopathy with ICD, CHF, previous pericarditis, GERD/PUD, prior kidney stones, and migraines. Med history shows recent RX for bentyl, toradol, zofran, percocet, and prednisone this month. Hx of appendectomy, cholecystectomy, multiple prior diagnostic laparoscopies one including [facility] Labs notable for wbc 14.75 with shift to ANC, AST 40, ALT 40. Urine without UTI. Additional chemistries and lipase unremarkable. Negative . Hepatitis panel pending. CT chest PE > shows cardiomegaly with mild interval increase in interstitial edema and bilateral pleural effusions, suspect fluid overload CT abd > mild hepatomegaly new compared to previous, ascites most prominent in pelvis, no mass or focal fluid collection, no other acute findings Patient reassessed at 7:35 pm > diffuse mid to lower abdominal tenderness with guarding. No rigidity. Intact BS. Had BM in the ED, nonbloody. Discussed findings on imaging and labs. Will order lasix. She reports SOB. No chest pain. No acute distress. No hypoxia. Plan to admit for further symptomatic management regarding abd pain and work up per inpatient team. No acute surgical findings at this time. Afebrile, nontoxic. Additional hx: BR cancer treated with lumpectomy and chemo last treatment in 2009, ovarian CA s/p left oopherectomy. Endometrial CA s/p ablation. Denies hx of STI or PID. No vaginal discharge or bleeding. Last had sexual intercourse about 2 months ago due to dyspareunia. Pelvic exam with diffuse discomfort, no localized tenderness, no purulent vaginal discharge, no CMT. Swabs sent. Discussed with Dr. Sutherland and will admit RNF. Clinical Impressions as of 07/04/241941 Intractable abdominal pain Leukocytosis, unspecified type Transaminitis Acute on chronic heart failure, unspecified heart failure type (HCC) Medical Decision Making Old records reviewed: EMR reviewed and Discussion with another provider: Dr. Sutherland. SIGNATURE: Anay Sandhu PA-C PATIENT NAME: Michelle Mitchell DATE: July 04, 2024 TIME: 7:24 PM PAGER/CONTACT #: Carlos Eduardo [facility] ED PROV NOTEon 07-04-2024 ED PROV NOTE HNO ID: [id number] Author: SHANNA TSE MD Service: ? Author Type: Physician Canceling And Cutting Control Clerk Type: ED Provider Notes Filed: 07/04/2024 20:18 Note Text: -------- Attestation signed by Shanna Tse MD at 07/04/2024 8:18 PM Attending Note I have personally performed a face to face assessment of the patient and have reviewed the JOHANNA note. I performed a substantive portion of the visit including all aspects of the following. My kim findings include: 43-year-old female who presents with a 4-day history of generalized abdominal pain. It began several weeks ago but has gotten progressively worse in the last 4 days. She was seen at [facility] where she had labs and CAT scan which were unremarkable except for possible pelvic congestion syndrome. Patient also saw her primary yesterday. She called her primary today who advised her to come to the emergency department. Workup in ED reveals unremarkable CMP except for ALT/AST of 40/40. Beta hCG negative. WBCs 14.75, hemoglobin 14. Urinalysis negative. Abdominal and pelvis CT negative except for ascites in the pelvis. CTA of the chest negative. While in ED, patient was given IV analgesia. Given her frequent visits to the emergency department and intractable pain she will be admitted for further evaluation. Signature: Shanna Tse MD Date: 07/04/2024 Time: 8:15 PM -------- ED Provider Note Patient Name: Michelle Mitchell : 1980 SERVICE DATE: 07/04/24 History Patient presents with: Abdominal Pain: was seen twice at [place] her dr avilad her to come here pt states pain is not getting better 43-year-old female with a past medical history of breast cancer, CHF, GERD, kidney stones, presents to the ED today for abdominal pain, patient's had abdominal pain on and off now for the last couple weeks, she has been seen at [facility] twice over the last few days and has had multiple workups including labs and CT and has been discharged home, patient states the pain is getting worse, she called her PCP who recommended the patient come to the ED for another evaluation and possible admission for pain, patient denies any fever, she rates pain as 9 out of 10, also complains of shortness of breath, denies any urinary symptoms. PAST MEDICAL HISTORY Diagnosis Date Breast cancer (HCC) Age 17 treated with radiation, lumpectomy and masectomy CIS (carcinoma in situ of cervix) Colon polyp 07/2015 Congestive heart failure (HCC) HOCM DVT (deep venous thrombosis) (HCC) Endometrial cancer (HCC) treated with ablation Gastroesophageal reflux disease 08/17/2017 GERD (gastroesophageal reflux disease) Hypertr obst cardiomyop ICD (implantable cardiac defibrillator) battery depletion Kidney stone Migraine Ovarian epithelial cancer (HCC) This diagnosis unlikely as both ovaries present 05/09/2018 laparoscopy Pericarditis PUD (peptic ulcer disease) Pulmonary embolism (HCC) 11/2016 Vaginal Pap smear with ASC-US 12/2016 PAST SURGICAL HISTORY Procedure Laterality Date ANES PERMANENT TRANSVENOUS PACEMAKER INSERTION 2006 ICD implant, [facility] ANESTHESIA TUBAL LIGATION/TRANSECTION APPENDECTOMY 05/05/2014 , lap BREAST LUMPECTOMY HX Left 1997 with radiation CHOLECYSTECTOMY HX 08/2010 lap COLONOSCOPY AND POLYPECTOMY 08/07/2015 CONIZATION CERVIX W/WO DANDC RPR KNIFE/LASER CIS EGD 08/25/2017 Tabbaa- normal ENDOMETRIAL ABLATION WITH US GUIDANCE for abnormal uterine bleeding EXCISION OF CYST 08/23/2017 Dr. Velasco Excision of sebaceous cyst IMPLANTABLE CARDIAC DEFIB ICD 02/2009, 10/19/2016 LAPAROSCOPY DIAGNOSTIC 07/21/2015 Lysis of adhesions, MIDLINE INSERTION/CONSULT 01/18/2017 PAST SURGICAL HISTORY OF 05/24/2014 Laparoscopy, FAMILY HISTORY Problem Relation Age of Onset Heart Mother heart valve replaced, was in a car accident in early age Breast Cancer Mother dx age 50 DVT Mother Heart Father IHSS, CHF, HOCM other (Paternal half-sister) Sister Paternal half-sister; on transplant list other (HOCM) Sister Heart Paternal Grandmother stroke, at age 43 Heart Paternal Grandfather at age 45 Heart Paternal Aunt at age 27 Heart Paternal Aunt at age 29 Cancer Sister 20 Brain Breast Cancer Sister 28 Colon Cancer Sister 26 DVT Sister Heart Sister Reported HOCM, heart transplant at 34 Social History Tobacco Use Smoking status: Every Day Current packs/day: 0.25 Average packs/day: 0.3 packs/day for 42.3 years (10.6 ttl pk-yrs) Types: Cigarettes Start date: 03/14/1982 Smokeless tobacco: Never Tobacco comments: since age 12 yrs Vaping Use Vaping status: Never Used Substance and Sexual Activity Alcohol use: No Drug use: N (more content not included)... Normal [facility] HAV IgM Ser Qlon 07-04-2024 HAV IgM Ql (S) Negative Normal Negative [facility] Comment on above: Order Comment: Speci men Type: BLOOD SPECIMENOrdering Facility: [facility] Address: [address] [place] [address] Result Comment: No e vidence of recent infection with Hepatitis A virus. Performed By: #### 1 975-2, 09772-4, 77513-0, 5195-3 ####[facility] LABCLIA [id number] [place] [address] [place] HBV core IgM Ser Qlon 2024 HBV core IgM Ql (S) Negative Normal Negative [facility] Comment on above: Order Comment: Speci men Type: BLOOD SPECIMENOrdering Facility: [facility] Address: [address] [place] [address] Result Comment: No e vidence of recent infection with Hepatitis B virus. Should recent infection be suspected, repeat testing may be considered 3-4 weeks after this draw. Performed By: #### 1 975-2, 65787-4, 65451-5, 5195-3 ####[facility] LABCLIA [id number] [place] [address] [place] HBV surface Ag Ser Qlon 06-13 HBV surface Ag Ql (S) Negative Normal Negative [facility] Comment on above: Order Comment: Speci men Type: BLOOD SPECIMENOrdering Facility: [facility] Address: [address] [place] [address] Performed By: #### 1 975-2, 87713-5, 38616-2, 5195-3 ####[facility] LABCLIA [id number] [place] [address] [place] HCV RNA BIMAL+probe Qnon 07-04 HCV RNA BIMAL+probe Ql Not detected Normal Not detected [facility] Comment on above: Order Comment: Speci men Type: BLOOD SPECIMEN [facility] Facility: [facility] Address: [address] [place] [address] Performed By: #### 1 1011-4 #### [facility] CLIA [id number] [address] [place] [address] [place] Lipase SerPl-cCncon 07-05-19 25 Lipase [Catalytic activity/Vol] 26 U/L Normal 16-61 [facility] Comment on above: Order Comment: Speci men Type: BLOOD SPECIMENOrdering Facility: [facility] Address: [address] [place] [address] Performed By: #### H CGED, 3040-3, 01990-6 ####[facility] [id number] [place] [address] [place] Pacemaker Checkon 07-04-2024 Pacemaker Check Normal [facility] TRICHOMONAS VAGINALIS NAATon 07-04-2024 T. vaginalis DNA BIMAL+probe Ql (Unsp spec) Not detected Normal Not detected [facility] Comment on above: Order Comment: Speci men Type: BLOOD SPECIMEN [facility] Address: [facility] [place] [id number] Performed By: #### 5 8410-2 #### [facility] CLIA [id number] [address] [place] [address] [place] [facility] FEMALE PELV TRANSABD COMP LETEon 07-04-2024 FEMALE PELV TRANSABD COMPLETE * * *Final Report* * * DATE OF EXAM: Jul 04 2024 9:32PM MDU 1065 - US FEMALE PELV TRANSABD COMPLETE / PROCEDURE REASON: Pelvic pain, negative beta-HCG, concierge etiology suspected * * * * Physician Interpretation * * * * EXAMINATION: TRANSVAGINAL AND LIMITED TRANSABDOMINAL FEMALE PELVIC ULTRASOUND CLINICAL HISTORY: Pelvic pain TECHNIQUE: Sonography of the pelvis was performed by transvaginal and transabdominal (limited) techniques. Images were obtained and stored in a permanent archive. MQ: P_[id number] COMPARISON: CT abdomen and pelvis same day RESULT: Exam is limited by moderate pelvic ascites and rapid bladder filling. Uterus: -Size: 7.0 x 3.9 x 2.9 cm -Orientation: Anteverted -Endometrial echo complex: Evaluation of the endometrium was inadequate, and only partially visualized. No endometrial abnormality. The endometrial echo complex measured 0.2 cm. -Cervix: Unremarkable. -Adenomyosis assessment: There are no sonographic findings of adenomyosis. -Fibroids: There are no fibroids. Right Ovary: 2.2 x 1.7 x 1.8 cm. A 1.7 cm dominant follicle. Normal Doppler flow. Left Ovary: Nonvisualized. Reported surgically absent. Free Fluid: Moderate volume pelvic ascites is present. IMPRESSION: 1. No sonographic abnormality of the uterus or right ovary identified. 2. Nonvisualized left ovary, reportedly surgically absent. 3. Moderate pelvic ascites. Assembly Department Supervisor: PSCB Transcribe Date/Time: Jul 05 2024 12:55A Dictated by : ANASTASIA MEADOWS DO This examination was interpreted and the report reviewed and electronically signed by: ANASTASIA MEADOWS DO on Jul 05 2024 1:06AM EST [id number] [facility] FEMALE PELVIS TRANSVAGon 07-04-2024 FEMALE PELVIS TRANSVAG * * *Final Report* * * DATE OF EXAM: Jul 04 2024 9:32PM MDU 1060 - US FEMALE PELVIS TRANSVAG / PROCEDURE REASON: Pelvic pain, negative beta-HCG, concierge etiology suspected * * * * Physician Interpretation * * * * EXAMINATION: TRANSVAGINAL AND LIMITED TRANSABDOMINAL FEMALE PELVIC ULTRASOUND CLINICAL HISTORY: Pelvic pain TECHNIQUE: Sonography of the pelvis was performed by transvaginal and transabdominal (limited) techniques. Images were obtained and stored in a permanent archive. MQ: [id number] COMPARISON: CT abdomen and pelvis same day RESULT: Exam is limited by moderate pelvic ascites and rapid bladder filling. Uterus: -Size: 7.0 x 3.9 x 2.9 cm -Orientation: Anteverted -Endometrial echo complex: Evaluation of the endometrium was inadequate, and only partially visualized. No endometrial abnormality. The endometrial echo complex measured 0.2 cm. -Cervix: Unremarkable. -Adenomyosis assessment: There are no sonographic findings of adenomyosis. -Fibroids: There are no fibroids. Right Ovary: 2.2 x 1.7 x 1.8 cm. A 1.7 cm dominant follicle. Normal Doppler flow. Left Ovary: Nonvisualized. Reported surgically absent. Free Fluid: Moderate volume pelvic ascites is present. IMPRESSION: 1. No sonographic abnormality of the uterus or right ovary identified. 2. Nonvisualized left ovary, reportedly surgically absent. 3. Moderate pelvic ascites. Assembly Department Supervisor: KIM Transcribe Date/Time: Jul 05 2024 12:55A Dictated by : ANASTASIA MEADOWS DO This examination was interpreted and the report reviewed and electronically signed by: ANASTASIA MEADOWS DO on Jul 05 2024 1:06AM EST [id number] Normal [facility] Urinalysis complete panel (U )on 07-04-2024 Bilirubin Ql (U) Negative Normal Negative [facility] Comment on above: Order Comment: Speci men Type: URINE SPECIMENOrdering Facility: [facility] Address: [address] [place] [address] [place] [address] Performed By: #### 2 4356-8 ####[facility]CLIA [id number] [place] [address] [place] Clarity (Unsp spec) Clear Normal Clear [facility] Comment on above: Order Comment: Speci men Type: URINE SPECIMENOrdering Facility: [facility] Address: [address] [place] [address] Performed By: #### 2 4356-8 ####[facility] [id number] [place] [address] [place] Color (U) Yellow Normal Yellow [facility] Comment on above: Order Comment: Speci men Type: URINE SPECIMENOrdering Facility: [facility] Address: [address] [place] [address] Performed By: #### 2 4356-8 ####[facility]CL[facility] [id number] [address] [place] Epithelial cells LM.HPF (Urine sed) [#/Area] Few Normal [facility] Comment on above: Order Comment: Speci men Type: URINE SPECIMENOrdering Facility: [facility] Address: [address] [place] [address] Performed By: #### 2 4356-8 ####[facility]ORYCLIA [id number] [place] [address] [place] Glucose Test strip (U) [Mass/Vol] Negative Normal Negative [facility] Comment on above: Order Comment: Speci men Type: URINE SPECIMENOrdering Facility: [facility] Address: [address] [place] [address] Performed By: #### 2 4356-8 ####[facility] [id number] [address] [place] Hemoglobin Ql (U) 1+ Abnormal Negative [facility] Comment on above: Order Comment: Speci men Type: URINE SPECIMENOrdering Facility: [facility] Address: [address] [place] [address] Performed By: #### 2 4356-8 ####[facility]CLIA [id number] [address] [place] Ketones Ql (U) Negative Normal Negative [facility] Comment on above: Order Comment: Speci men Type: URINE SPECIMENOrdering Facility: [facility] Address: [address] [place] [address] Performed By: #### 2 4356-8 ####[facility]CLIA [id number] [address] Leukocyte esterase Test strip Ql (U) Negative Normal Negative [facility] Comment on above: Order Comment: Speci men Type: URINE SPECIMENOrdering Facility: [facility] Address: [address] [place] [address] Performed By: #### 2 4356-8 ####[facility]ORYCLIA [id number] [place] [address] [place] Nitrite Ql (U) Negative Normal Negative [facility] Comment on above: Order Comment: Speci men Type: URINE SPECIMENOrdering Facility: [facility] Address: [address] [place] [address] Performed By: #### 2 4356-8 ####[facility]CLIA [id number] [place] [address] [place] pH (U) 6.0 [pH] Normal 5.0-8.0 [facility] Comment on above: Order Comment: Speci men Type: URINE SPECIMENOrdering Facility: [facility] Address: [address] [place] [address] Performed By: #### 2 4356-8 ####[facility]CLIA [id number] [address] [place] Protein (U) [Mass/Vol] Negative Normal Negative [facility] Comment on above: Order Comment: Speci men Type: URINE SPECIMENOrdering Facility: [facility] Address: [address] [place] [address] Performed By: #### 2 4356-8 ####[facility]ORYCLIA [id number] [place] [address] [place] RBC LM.HPF (Urine sed) [#/Area] 0-3 /HPF Normal 0-3 /HPF [facility] Comment on above: Order Comment: Speci men Type: URINE SPECIMENOrdering Facility: [facility] Address: [address] [place] [address] Performed By: #### 2 4356-8 ####[facility]CLIA [id number] [address] Specific gravity (U) [Rel density] 1.010 Normal 1.005-1.03 0 [facility] Comment on above: Order Comment: Speci men Type: URINE SPECIMENOrdering Facility: [facility] Address: [address] [place] [address] Performed By: #### 2 4356-8 ####[facility]IA [id number] [address] Urobilinogen Ql (U) 0.2 EU/dL Normal 0.2-1.0 EU/dL [facility] Comment on above: Order Comment: Speci men Type: URINE SPECIMENOrdering Facility: [facility] Address: [address] [place] [address] Performed By: #### 2 4356-8 ####[facility]CLIA [id number] [address] STATES [facility] WBC LM.HPF (Urine sed) [#/Area] 0-5 /HPF Normal 0-5 /HPF [facility] Comment on above: Order Comment: Speci men Type: URINE SPECIMENOrdering Facility: [facility] Address: [address] [place] [address] Performed By: #### 2 4356-8 ####[facility]CLIA [id number] [address] [place] Abdomen/Pelvis W IV Cont ONL Yon 07-03-2024 Abdomen/Pelvis W IV Cont ONLY Normal [facility] Absolute lymphocyte countOrd ered By: Nabor Frey on 07-03-2024 Lymphocytes Auto (Unsp spec) [#/Vol] 0.93 10*3/uL 0.83-4.[address] [facility] Absolute neutrophil countOrd ered By: Nabor Frey on 07-03-2024 Neutrophils (Bld) [#/Vol] 20.3 10*3/uL High 2.0-7.[address] [facility] Anion gap in Serum or Plasma Ordered By: Nabor Frey on 07-03-2024 Anion gap [Moles/Vol] 10 mmol/L 5-15 [facility] Automated lymphocyte count a s percentage of total leukocytesOrdered By: Nabor Frey on 07-03-2024 Lymphocytes/100 WBC Auto (Unsp spec) 4.2 % Low 19-[address] [facility] BUN/creatinine ratioOrdered By: Nabor Frey on 07-03-2024 Urea nitrogen/Creatinine [Mass ratio] 17.1 mg/mg - [facility] Basic Metabolic Profile (BMP )on 07-03-2024 BUN/CRE 17.1 RATIO Normal 12-[address] [facility] Comment on above: Performed By: #### L 700.6800, L500.2500, L501.2450, L500.3400, L100.0100 ####[facility] [address] [place], [address] Calcium [Mass/Vol] 9.3 mg/dL Normal 7.6-11.0 [facility] Comment on above: Performed By: #### L 700.6800, L500.2500, L501.2450, L500.3400, L100.0100 ####[facility] [address] [place], [address] Chloride [Moles/Vol] 106 mmol/L Normal 98-108 [facility] Comment on above: Performed By: #### L 700.6800, L500.2500, L501.2450, L500.3400, L100.0100 ####[facility] [address] [place], [address] CO2 [Moles/Vol] 21.4 mmol/L Normal 21.0-32.[address] [facility] Comment on above: Performed By: #### L 700.6800, L500.2500, L501.2450, L500.3400, L100.0100 ####[facility] [address] [place], [address] Creatinine [Mass/Vol] 0.81 mg/dL Normal 0.70-1.20 [facility] Comment on above: Performed By: #### L 700.6800, L500.2500, L501.2450, L500.3400, L100.0100 ####[facility] [address] [place], [address] ECRCL 76.53 ml/min Normal 50-[address] [facility] Comment on above: Performed By: #### L 700.6800, L500.2500, L501.2450, L500.3400, L100.0100 ####[facility] [address] [place], [address] GAP 10 Normal 5-[address] [facility] Comment on above: Performed By: #### L 700.6800, L500.2500, L501.2450, L500.3400, L100.0100 ####[facility] [address] [place], [address] GFR/1.73 sq M.predicted among non-blacks MDRD (S/P/Bld) [Vol rate/Area] 91 mL/min/{1.73_m2} Normal >[address] [facility] Comment on above: Result Comment: mL/m in/1.73m2 CKD-EPI Creatinine Equation (2020) Performed By: #### L 700.6800, L500.2500, L501.2450, L500.3400, L100.0100 ####[facility] [address] [place], [address] Glucose [Mass/Vol] 104 mg/dL High 70-99 [facility] Comment on above: Performed By: #### L 700.6800, L500.2500, L501.2450, L500.3400, L100.0100 ####[facility] [address] [place], [address] Potassium [Moles/Vol] 4.4 mmol/L Normal 3.3-5.1 [facility] Comment on above: Performed By: #### L 700.6800, L500.2500, L501.2450, L500.3400, L100.0100 ####[facility] [address] [place], [address] Sodium [Moles/Vol] 138 mmol/L Normal 133-145 [facility] Comment on above: Performed By: #### L 700.6800, L500.2500, L501.2450, L500.3400, L100.0100 ####[facility] [address] [place], [address] Urea nitrogen [Mass/Vol] 14 mg/dL Normal 4-[address] [facility] Comment on above: Performed By: #### L 700.6800, L500.2500, L501.2450, L500.3400, L100.0100 ####[facility] [address] [place], [address] Basophil percentageOrdered B y: Nabor Frey on 07-03-2024 Basophils/100 WBC (Bld) 0.2 % 0-1 [facility] Bilirubin Test strip Ql (U)O rdered By: Nabor Frey on 07-03-2024 Bilirubin Ql (U) Negative Negative [facility] Bilirubin directOrdered By: Nabor Frey on 07-03-2024 Bilirubin.direct [Mass/Vol] 0.27 mg/dL 0.00-0.[address] [facility] Bilirubin, totalOrdered By: Nabor Frey on 07-03-2024 Bilirubin [Mass/Vol] 0.64 mg/dL 0.00-1.30 [facility] CBC W/Diff, Automatedon 06-13 Absolute Lymph 0.93 X10 3/uL Normal 0.83-4.[address] [facility] Comment on above: Performed By: #### L 700.6800, L500.2500, L501.2450, L500.3400, L100.0100 ####[facility] [address] [place], [address] Absolute Neut 20.3 X10 3/uL High 2.0-7.[address] [facility] Comment on above: Performed By: #### L 700.6800, L500.2500, L501.2450, L500.3400, L100.0100 ####[facility] [address] [place], [address] Basophils/100 WBC (Bld) 0.2 % Normal 0-1 [facility] Comment on above: Performed By: #### L 700.6800, L500.2500, L501.2450, L500.3400, L100.0100 ####[facility] [address] [place], [address] Eosinophils/100 WBC (Bld) 0.1 % Normal 0-[address] [facility] Comment on above: Performed By: #### L 700.6800, L500.2500, L501.2450, L500.3400, L100.0100 ####[facility] [address] [place], [address] Erythrocyte distribution width (RBC) [Ratio] 15.3 % High 11.6-14.[address] [facility] Comment on above: Performed By: #### L 700.6800, L500.2500, L501.2450, L500.3400, L100.0100 ####[facility] [address] [place], [address] Hematocrit (Bld) [Volume fraction] 41.5 % Normal 37-[address] [facility] Comment on above: Performed By: #### L 700.6800, L500.2500, L501.2450, L500.3400, L100.0100 ####[facility] [address] [place], [address] Hemoglobin (Bld) [Mass/Vol] 13.8 g/dL Normal 12.0-15.[address] [facility] Comment on above: Performed By: #### L 700.6800, L500.2500, L501.2450, L500.3400, L100.0100 ####[facility] [address] [place], [address] IG% 0.900 Normal 0.0-0.[address] [facility] Comment on above: Result Comment: IG% - Immature Granulocytes (promyelocytes, myelocytes andmetamyelocytes) > 1% indicates that a LEFT SHIFT is Present. Performed By: #### L 700.6800, L500.2500, L501.2450, L500.3400, L100.0100 ####[facility] [address] [place], [address] Lymphocytes/100 WBC (Bld) 4.2 % Low 19-[address] [facility] Comment on above: Performed By: #### L 700.6800, L500.2500, L501.2450, L500.3400, L100.0100 ####[facility] [address] [place], [address] MCH (RBC) [Entitic mass] 32.6 pg High 27.0-32.[address] [facility] Comment on above: Performed By: #### L 700.6800, L500.2500, L501.2450, L500.3400, L100.0100 ####[facility] [address] [place], [address] MCHC (RBC) [Mass/Vol] 33.3 g/dL Normal 32-36 [facility] Comment on above: Performed By: #### L 700.6800, L500.2500, L501.2450, L500.3400, L100.0100 ####[facility] [address] [place], [address] MCV (RBC) [Entitic vol] 98.1 fL Normal 81-99 [facility] Comment on above: Performed By: #### L 700.6800, L500.2500, L501.2450, L500.3400, L100.0100 ####[facility] [address] [place], [address] Monocytes/100 WBC (Bld) 2.6 % Normal 0-10 [facility] Comment on above: Performed By: #### L 700.6800, L500.2500, L501.2450, L500.3400, L100.0100 ####[facility] [address] [place], [address] Neutrophils/100 WBC (Bld) 92.0 % High 47-[address] [facility] Comment on above: Performed By: #### L 700.6800, L500.2500, L501.2450, L500.3400, L100.0100 ####[facility] [address] [place], [address] Nucleated RBC (Bld) [#/Vol] 0 10*3/uL Normal 0-[address] [facility] Comment on above: Performed By: #### L 700.6800, L500.2500, L501.2450, L500.3400, L100.0100 ####[facility] [address] [place], [address] Platelet mean volume (Bld) [Entitic vol] 11.2 fL Normal 6.2-12.[address] [facility] Comment on above: Performed By: #### L 700.6800, L500.2500, L501.2450, L500.3400, L100.0100 ####[facility] [address] [place], [address] Platelets (Bld) [#/Vol] 237 10*3/uL Normal 150-[address] [facility] Comment on above: Performed By: #### L 700.6800, L500.2500, L501.2450, L500.3400, L100.0100 ####[facility] [address] [place], [address] RBC (Bld) [#/Vol] 4.23 10*6/uL Normal 4.2-5.4 [facility] Comment on above: Performed By: #### L 700.6800, L500.2500, L501.2450, L500.3400, L100.0100 ####[facility] [address] [place], [address] RDW SD 54.4 fl High 35.1-43.[address] [facility] Comment on above: Performed By: #### L 700.6800, L500.2500, L501.2450, L500.3400, L100.0100 ####[facility] [address] [place], [address] WBC (Bld) [#/Vol] 22.0 10*3/uL High 4.4-11.0 [facility] Comment on above: Performed By: #### L 700.6800, L500.2500, L501.2450, L500.3400, L100.0100 ####[facility] [address] [place], [address] Carbon dioxide, total [Moles /volume] in Central venous bloodOrdered By: Nabor Frey on 07-03-2024 CO2 [Moles/Vol] 21.4 mmol/L 21.0-32.[address] [facility] Chloride assayOrdered By: Carlton Frey on 07-03-2024 Chloride [Moles/Vol] 106 mmol/L 98-108 [facility] Summary on 07-03-2024 Emergency Department Summary Normal [facility] Eosinophil percentageOrdered By: Nabor Frey on 07-03-2024 Eosinophils/100 WBC (Bld) 0.1 % 0-[address] [facility] Erythrocyte distribution wid th ratioOrdered By: Nabor Frey on 07-03-2024 Erythrocyte distribution width (RBC) [Ratio] 15.3 % High 11.6-14.[address] [facility] Erythrocyte distribution wid th standard deviationOrdered By: Nabor Frey on 07-03-2024 Erythrocyte distribution width (RBC) [Ratio] 54.4 fl High 35.1-43.[address] [facility] Gastroenterology Visit Repor ton 07-03-2024 Gastroenterology Visit Report Normal [facility] Glomerular filtration rate ( GFR) estimation/1.73 sq m using serum, plasma, or whole bOrdered By: Nabor Frey on 07-03-2024 GFR/1.73 sq M.predicted among non-blacks MDRD (S/P/Bld) [Vol rate/Area] 91 mL/min/{1.73_m2} >[address] [facility] Comment on above: mL/min/1.73m2 CKD-EP I Creatinine Equation (2020) Hematocrit Auto (Bld) [Volum e fraction]Ordered By: Nabor Frey on 07-03-2024 Hematocrit (Bld) [Volume fraction] 41.5 % 37-[address] [facility] Hemoglobin measurementOrdere d By: Nabor Frey on 07-03-2024 Hemoglobin (Bld) [Mass/Vol] 13.8 g/dL 12.0-15.[address] [facility] Immature granulocytes/100 WB C Auto (Bld)Ordered By: Nabor Frey on 07-03-2024 Immature granulocytes/100 WBC (Bld) 0.900 % 0.0-0.[address] [facility] Comment on above: IG% - Immature Granu locytes (promyelocytes, myelocytes and metamyelocytes) > 1% indicates that a LEFT SHIFT is Present. Ketones Test strip Ql (U)Ord ered By: Nabor Frey on 07-03-2024 Ketones Ql (U) Negative Negative [facility] Laboratory - Chemistry and C hemistry - challengeOrdered By: Nabor Frey on 07-03-2024 AST [Catalytic activity/Vol] 33 U/L High <[address] [facility] Lipaseon 07-03-2024 Lipase [Catalytic activity/Vol] 25 U/L Normal 13-[address] [facility] Comment on above: Result Comment: Liam rader note:LIPASE revised reference range effective 22.New Lipase methodology. Expected to produce lower valuesthan the previous assay method.NEW Reference Range: 13 - 75 U/L Performed By: Kim### L 700.6800, L500.2500, L501.2450, L500.3400, L100.0100 ####[facility] [address] [place], [address] Lipase measurementOrdered By : Nabor Frey on 07-03-2024 Lipase [Catalytic activity/Vol] 25 U/L 13-[address] [facility] Comment on above: Please note:LIPASE r evised reference range effective 22. New Lipase methodology. Expected to produce lower values than the previous assay method. NEW Reference Range: 13 - 75 U/L Liver Profileon 07-03-2024 Albumin [Mass/Vol] 4.2 g/dL Normal 3.5-5.0 [facility] Comment on above: Performed By: #### L 700.6800, L500.2500, L501.2450, L500.3400, L100.0100 ####[facility] [address] [place], [address] ALK PHOS 111 U/L High 35-[address] [facility] Comment on above: Performed By: #### L 700.6800, L500.2500, L501.2450, L500.3400, L100.0100 ####[facility] [address] [place], [address] ALT [Catalytic activity/Vol] 33 U/L Normal <=[address] [facility] Comment on above: Performed By: #### L 700.6800, L500.2500, L501.2450, L500.3400, L100.0100 ####[facility] [address] [place], [address] AST [Catalytic activity/Vol] 33 U/L High <=[address] [facility] Comment on above: Performed By: #### L 700.6800, L500.2500, L501.2450, L500.3400, L100.0100 ####[facility] [address] [place], [address] Bilirubin [Mass/Vol] 0.64 mg/dL Normal 0.00-1.30 [facility] Comment on above: Performed By: #### L 700.6800, L500.2500, L501.2450, L500.3400, L100.0100 ####[facility] [address] [place], [address] Bilirubin.direct [Mass/Vol] 0.27 mg/dL Normal 0.00-0.[address] [facility] Comment on above: Performed By: #### L 700.6800, L500.2500, L501.2450, L500.3400, L100.0100 ####[facility] [address] [place], [address] Globulin (S) [Mass/Vol] 2.3 g/dL Normal 2.2-4.2 [facility] Comment on above: Performed By: #### L 700.6800, L500.2500, L501.2450, L500.3400, L100.0100 ####[facility] [address] [place], [address] T PROT 6.5 g/dL Normal 5.9-8.[address] [facility] Comment on above: Performed By: #### L 700.6800, L500.2500, L501.2450, L500.3400, L100.0100 ####[facility] [address] [place], [address] MCV (mean corpuscular volume ) determinationOrdered By: Nabor Frey on 07-03-2024 MCV (RBC) [Entitic vol] 98.1 fL 81-99 [facility] Mean corpuscular hemoglobin (MCH) determinationOrdered By: Nabor Frey on 07-03-2024 MCH (RBC) [Entitic mass] 32.6 pg High 27.0-32.[address] [facility] Mean corpuscular hemoglobin concentration (MCHC) determinationOrdered By: Nabor Frey on 07-03-2024 MCHC (RBC) [Mass/Vol] 33.3 g/dL 32-36 [facility] Mean platelet volume determi nationOrdered By: Nabor Frey on 07-03-2024 Platelet mean volume (Bld) [Entitic vol] 11.2 fL 6.2-12.[address] [facility] Microscopic analysis of urin e for red blood cells (RBC)Ordered By: Nabor Frey on 07-03-2024 Microscopic analysis of urine for red blood cells (RBC) 0-5 SEEN /hpf 0-[address] [facility] Monocyte percentageOrdered B y: Nabor Frey on 07-03-2024 Monocytes/100 WBC (Bld) 2.6 % 0-10 [facility] Mucus LM Ql (Urine sed)Order ed By: Nabor Frey on 07-03-2024 Mucus Ql (Urine sed) 0 SEEN /hpf [facility] Neutrophil percentageOrdered By: Nabor Frey on 07-03-2024 Neutrophils/100 WBC (Bld) 92.0 % High 47-[address] [facility] Nitrite Test strip Ql (U)Ord ered By: Nabor Frey on 07-03-2024 Nitrite Ql (U) Negative Negative [facility] No Panel InformationOrdered By: Nabor Frey on 07-03-2024 33 U/L High <[address] [facility] Nucleated red blood cell per centageOrdered By: Nabor Frey on 07-03-2024 Nucleated RBC/100 WBC (Bld) [Ratio] 0 % 0-[address] [facility] Platelet countOrdered By: Carlton Frey on 07-03-2024 Platelets (Bld) [#/Vol] 237 10*3/uL 150-[address] [facility] Potassium measurement (mass/ volume)Ordered By: Nabor Frey on 07-03-2024 Potassium (Unsp spec) [Mass/Vol] 4.4 mmol/L 3.3-5.[address] [facility] ,Serum,hCG Quali.on 07-03-2024 HCG, SERUM QUAL Negative Normal [facility] Comment on above: Performed By: #### L 700.6800, L500.2500, L501.2450, L500.3400, L100.0100 ####[facility] [address] [place], [address] Protein Test strip Ql (U)Ord ered By: Nabor Frey on 07-03-2024 Protein Ql (U) 30 mg/dl High Negative [facility] RBC Auto (Bld) [#/Vol]Ordere d By: Nabor Frey on 07-03-2024 RBC (Bld) [#/Vol] 4.23 10*6/uL 4.2-5.4 [facility] Serum beta-hCG test, qualita tiveOrdered By: Nabor Frey on 07-03-2024 Beta HCG ( test) Ql Negative [facility] Serum creatinine measurement (mass/volume)Ordered By: Nabor Frey on 07-03-2024 Creatinine [Mass/Vol] 0.81 mg/dL 0.70-1.20 [facility] Serum globulin measurementOr dered By: Nabor Frey on 07-03-2024 Globulin (S) [Mass/Vol] 2.3 g/dL 2.2-4.2 [facility] Serum glucose measurement (m ass/volume)Ordered By: Nabor Frey on 07-03-2024 Glucose [Mass/Vol] 104 mg/dL High 70-99 [facility] Serum or plasma alanine hair otransferase (ALT) measurementOrdered By: Nabor Frey on 07-03-2024 ALT [Catalytic activity/Vol] 33 U/L <[address] [facility] Serum or plasma albumin leslie urement (mass/volume)Ordered By: Nabor Frey on 07-03-2024 Albumin [Mass/Vol] 4.2 g/dL 3.5-5.0 [facility] Serum or plasma alkaline delfin sphatase measurementOrdered By: Nabor Frey on 07-03-2024 ALP [Catalytic activity/Vol] 111 U/L High 35-[address] [facility] Serum or plasma calcium leslie urement (mass/volume)Ordered By: Nabor Frey on 07-03-2024 Calcium [Mass/Vol] 9.3 mg/dL 7.6-11.0 [facility] Serum or plasma urea nitroge n measurement (mass/volume)Ordered By: Nabor Frey on 07-03-2024 Urea nitrogen [Mass/Vol] 14 mg/dL 4-[address] [facility] Sodium levelOrdered By: Charli Frey on 07-03-2024 Sodium [Moles/Vol] 138 mmol/L 133-145 [facility] Squamous epithelial cells de tection in urine sediment by light microscopyOrdered By: Nabor Frey on 07-03-2024 Epithelial cells.squamous LM Ql (Urine sed) 10-25 SEEN /hpf 5-[address] [facility] Total proteinOrdered By: Juan Daniel Frey on 07-03-2024 Protein [Mass/Vol] 6.5 g/dL 5.9-8.4 [facility] Urinalysis, Completeon 07-03 BILIRUBIN URINE Negative Normal Negative [facility] Comment on above: Order Comment: CLEAN CATCH Performed By: #### L 400.0001 ####[facility] [address] [place], [address] Clarity (U) Sl. Cloudy Normal Clear [facility] Comment on above: Order Comment: CLEAN CATCH Performed By: #### L 400.0001 ####[facility] [address] [place], [address] Color (U) Yellow Normal Yellow [facility] Comment on above: Order Comment: CLEAN CATCH Performed By: #### L 400.0001 ####[facility] [address] [place], [address] GLUCOSE, UR Normal Normal Normal [facility] Comment on above: Order Comment: CLEAN CATCH Performed By: #### L 400.0001 ####[facility] [address] [place], [address] KETONE UR Negative Normal Negative [facility] Comment on above: Order Comment: CLEAN CATCH Performed By: #### L 400.0001 ####[facility] [address] [place], [address] LEUK ESTERASE Negative Normal Negative [facility] Comment on above: Order Comment: CLEAN CATCH Performed By: #### L 400.0001 ####[facility] [address] [place], [address] Nitrite Ql (U) Negative Normal Negative [facility] Comment on above: Order Comment: CLEAN CATCH Performed By: #### L 400.0001 ####[facility] [address] [place], [address] OCCULT BLOOD-UR 25 /ul Abnormal Negative [facility] Comment on above: Order Comment: CLEAN CATCH Performed By: #### L 400.0001 ####[facility] [address] [place], [address] pH UR 6.5 Normal 5.0 - 8.[address] [facility] Comment on above: Order Comment: CLEAN CATCH Performed By: #### L 400.0001 ####[facility] [address] [place], [address] PROT DIPSTX 30 mg/dl Abnormal Negative [facility] Comment on above: Order Comment: CLEAN CATCH Performed By: #### L 400.0001 ####[facility] [address] [place], [address] SP.GR. DIPSTX 1.010 Normal 1.002-1.[address] [facility] Comment on above: Order Comment: CLEAN CATCH Performed By: #### L 400.0001 ####[facility] [address] [place], [address] UROBILI Normal Normal Normal [facility] Comment on above: Order Comment: CLEAN CATCH Performed By: #### L 400.0001 ####[facility] [address] [place], [address] Urine clarityOrdered By: Juan Daniel Frey on 07-03-2024 Clarity (U) Sl. Cloudy Clear [facility] Urine color determinationOrd ered By: Nabor Frey on 07-03-2024 Color (U) Yellow Yellow [facility] Urine glucose detectionOrder ed By: Nabor Frey on 07-03-2024 Glucose Ql (U) Normal mg/dl Normal [facility] Urine leukocyte esterase det ection by dipstickOrdered By: Nabor Frey on 07-03-2024 Leukocyte esterase Test strip Ql (U) Negative Negative [facility] Urine pHOrdered By: Nabor segal on 07-03-2024 pH (U) 6.5 [pH] 5.0 - 8.[address] [facility] Urine sediment bacteria coun t by microscopy (number/high power field)Ordered By: Nabor Frey on 07-03-2024 Bacteria LM.HPF (Urine sed) [#/Area] 1 /[HPF] None Seen [facility] Urine specific gravity measu rementOrdered By: Nabor Frey on 07-03-2024 Specific gravity (U) [Rel density] 1.010 1.002-1.[address] [facility] Urine urobilinogen measureme ntOrdered By: Nabor Frey on 07-03-2024 Urobilinogen Ql (U) Normal mg/dl Normal [facility] White blood cell (WBC) count Ordered By: Nabor Frey on 07-03-2024 WBC (Bld) [#/Vol] 22.0 10*3/uL High 4.4-11.0 [facility] White blood cell countOrdere d By: Nabor Frey on 07-03-2024 White blood cell count 0-5 SEEN /hpf 0-[address] [facility] 36on 07-01-2024 36 Your fax has been successfully sent to Dr. Sutherland at [phone]. From: Ella Cohen RN 07/01/2024 3:37:02 PM Origin Record Created by SHANTE 07/01/2024 3:37:12 PM Conversion [[email or web address].PRT] Type: application/postscript G3 to TIFF #1: Success [image/g3] (77ms) GhostScript TIFF #1: Success [image/tiff] (209ms) ([id number]) 07/01/2024 3:37:18 PM Transmission Record Sent to [id number] with remote ID [phone] Result: Success Page record: 1 - 3 Elapsed time: 01:39 on channel 48 07/01/2024 3:37:19 PM Conversion Successfully created cover sheet. 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 Patient states pain started about 3 days ago but was a dull ache at that time. She has nausea and lack of appetite, two episodes of vomiting. She states she vomited dark brown material that smelled fecal. 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 R: Patient understands care advice to go to ED now or call 911. Patient states she cannot leave her child at this time, but will go as soon as she has someone to take over care. Patient strongly advised to go immediately. She advises she will go to [place]. No further needs at this time. Patient instructed to call back with new or worsening symptoms. Reason for Disposition [1] SEVERE pain (e.g., excruciating) AND [2] present > 1 hour Answer Assessment - Initial Assessment Questions 1. LOCATION: Where does it hurt? Upper, under breasts, to belly button, mostly on left 2. RADIATION: Does the pain shoot anywhere else? (e.g., chest, back) Shoots into right shoulder 3. ONSET: When did the pain begin? (e.g., minutes, hours or days ago) 3 days ago, started as dull ache, no unbearable 4. SUDDEN: Gradual or sudden onset? Gradually 5. PATTERN Does the pain come and go, or is it constant? Constant 6. SEVERITY: How bad is the pain? (e.g., Scale 1-10; mild, moderate, or severe) 9 7. RECURRENT SYMPTOM: Have you ever had this type of stomach pain before? If Yes, ask: When was the last time? and What happened that time? no 8. AGGRAVATING FACTORS: Does anything seem to cause this pain? (e.g., foods, stress, alcohol) No, doesn't want to eat, vomiting dark brown, smelled fecal 9. CARDIAC SYMPTOMS: Do you have any of the following symptoms: chest pain, difficulty breathing, sweating, nausea? No chest pain, yes difficulty breathing, sweating but no fever, does have nausea 10. OTHER SYMPTOMS: Do you have any other symptoms? (e.g., back pain, diarrhea, fever, urination pain, vomiting) No fever, vomited twice, thought it was gas 11. : Is there any chance you are ? When was your last menstrual period? no Protocols used: Abdominal Pain- Cdqox-RSBGY-VA Normal [facility] Abdomen/Pelvis W IV Cont ONL Yon 07-01-2024 Abdomen/Pelvis W IV Cont ONLY Normal [facility] Absolute lymphocyte countOrd ered By: Anita Willis on 07-01-2024 Lymphocytes Auto (Unsp spec) [#/Vol] 0.97 10*3/uL 0.83-4.[address] [facility] Absolute neutrophil countOrd ered By: Anita Willis on 07-01-2024 Neutrophils (Bld) [#/Vol] 11.3 10*3/uL High 2.0-7.[address] [facility] Anion gap in Serum or Plasma Ordered By: Anita Willis on 07-01-2024 Anion gap [Moles/Vol] 12 mmol/L 5- [facility] Automated lymphocyte count a s percentage of total leukocytesOrdered By: Anita Willis on 07-01-2024 Lymphocytes/100 WBC Auto (Unsp spec) 7.5 % Low [facility] BUN/creatinine ratioOrdered By: Anita Willis on 07-01-2024 Urea nitrogen/Creatinine [Mass ratio] 14.9 mg/mg 12-[address] [facility] Basophil percentageOrdered B y: Anita Willis on 07-01-2024 Basophils/100 WBC (Bld) 0.4 % 0-1 [facility] Beta HCG ( test) Ql Ordered By: Anita Willis on 07-01-2024 Serum Test, Qualitative Negative [facility] Bilirubin Test strip Ql (U)O rdered By: Anita Willis on 07-01-2024 Bilirubin Ql (U) Negative Negative [facility] Bilirubin, totalOrdered By: Anita Willis on 07-01-2024 Bilirubin [Mass/Vol] 0.66 mg/dL 0.00-1.30 [facility] Comment on above: Performed By: #### L 700.6800, L100.0100, L501.2450, L500.4050 ####[facility] [address] [place], [address] CBC W/Diff, Automatedon 06-13 Absolute Lymph 0.97 X10 3/uL Normal 0.83-4.[address] [facility] Comment on above: Performed By: #### L 700.6800, L100.0100, L501.2450, L500.4050 ####[facility] [address] [place], [address] Absolute Neut 11.3 X10 3/uL High 2.0-7.[address] [facility] Comment on above: Performed By: #### L 700.6800, L100.0100, L501.2450, L500.4050 ####[facility] [address] [place], [address] Basophils/100 WBC (Bld) 0.4 % Normal 0-1 [facility] Comment on above: Performed By: #### L 700.6800, L100.0100, L501.2450, L500.4050 ####[facility] [address] [place], [address] Eosinophils/100 WBC (Bld) 0.9 % Normal 0-[address] [facility] Comment on above: Performed By: #### L 700.6800, L100.0100, L501.2450, L500.4050 ####[facility] [address] [place], [address] Erythrocyte distribution width (RBC) [Ratio] 14.9 % High 11.6-14.[address] [facility] Comment on above: Performed By: #### L 700.6800, L100.0100, L501.2450, L500.4050 ####[facility] [address] [place], [address] Hematocrit (Bld) [Volume fraction] 43.5 % Normal 37-[address] [facility] Comment on above: Performed By: #### L 700.6800, L100.0100, L501.2450, L500.4050 ####[facility] [address] [place], [address] Hemoglobin (Bld) [Mass/Vol] 14.7 g/dL Normal 12.0-15.[address] [facility] Comment on above: Performed By: #### L 700.6800, L100.0100, L501.2450, L500.4050 ####[facility] [address] [place], [address] IG% 0.400 Normal 0.0-0.[address] [facility] Comment on above: Result Comment: IG% - Immature Granulocytes (promyelocytes, myelocytes andmetamyelocytes) > 1% indicates that a LEFT SHIFT is Present. Performed By: #### L 700.6800, L100.0100, L501.2450, L500.4050 ####[facility] [address] [place], [address] Lymphocytes/100 WBC (Bld) 7.5 % Low 19-[address] [facility] Comment on above: Performed By: #### L 700.6800, L100.0100, L501.2450, L500.4050 ####[facility] [address] [place], [address] MCH (RBC) [Entitic mass] 32.7 pg High 27.0-32.[address] [facility] Comment on above: Performed By: #### L 700.6800, L100.0100, L501.2450, L500.4050 ####[facility] [address] [place], [address] MCHC (RBC) [Mass/Vol] 33.8 g/dL Normal 32-36 [facility] Comment on above: Performed By: #### L 700.6800, L100.0100, L501.2450, L500.4050 ####[facility] [address] [place], [address] MCV (RBC) [Entitic vol] 96.7 fL Normal 81-99 [facility] Comment on above: Performed By: #### L 700.6800, L100.0100, L501.2450, L500.4050 ####[facility] [address] [place], [address] Monocytes/100 WBC (Bld) 3.1 % Normal 0-10 [facility] Comment on above: Performed By: #### L 700.6800, L100.0100, L501.2450, L500.4050 ####[facility] [address] [place], [address] Neutrophils/100 WBC (Bld) 87.7 % High 47-[address] [facility] Comment on above: Performed By: #### L 700.6800, L100.0100, L501.2450, L500.4050 ####[facility] [address] [place], [address] Nucleated RBC (Bld) [#/Vol] 0 10*3/uL Normal 0-[address] [facility] Comment on above: Performed By: #### L 700.6800, L100.0100, L501.2450, L500.4050 ####[facility] [address] [place], [address] Platelet mean volume (Bld) [Entitic vol] 10.7 fL Normal 6.2-12.[address] [facility] Comment on above: Performed By: #### L 700.6800, L100.0100, L501.2450, L500.4050 ####[facility] [address] [place], [address] Platelets (Bld) [#/Vol] 239 10*3/uL Normal 150-[address] [facility] Comment on above: Performed By: #### L 700.6800, L100.0100, L501.2450, L500.4050 ####[facility] [address] [place], [address] RBC (Bld) [#/Vol] 4.50 10*6/uL Normal 4.2-5.4 [facility] Comment on above: Performed By: #### L 700.6800, L100.0100, L501.2450, L500.4050 ####[facility] [address] [place], [address] RDW SD 53.1 fl High 35.1-43.[address] [facility] Comment on above: Performed By: #### L 700.6800, L100.0100, L501.2450, L500.4050 ####[facility] [address] [place], [address] WBC (Bld) [#/Vol] 12.9 10*3/uL High 4.4-11.0 [facility] Comment on above: Performed By: #### L 700.6800, L100.0100, L501.2450, L500.4050 ####[facility] [address] [place], [address] Carbon dioxide, total [Moles /volume] in Central venous bloodOrdered By: Anita Willis on 07-01-2024 CO2 [Moles/Vol] 19.2 mmol/L Low 21.0-32.[address] [facility] Comment on above: Performed By: #### L 700.6800, L100.0100, L501.2450, L500.4050 ####[facility] [address] [place], [address] Chloride assayOrdered By: Reyna Willis on 07-01-2024 Chloride [Moles/Vol] 109 mmol/L High 98-108 [facility] Comment on above: Performed By: #### L 700.6800, L100.0100, L501.2450, L500.4050 ####[facility] [address] [place], [address] Comprehensive Metabolic Prof ilon 07-01-2024 ALK PHOS 116 U/L High 35-[address] [facility] Comment on above: Performed By: #### L 700.6800, L100.0100, L501.2450, L500.4050 ####[facility] [address] [place], [address] BUN/CRE 14.9 RATIO Normal 10-[address] [facility] Comment on above: Performed By: #### L 700.6800, L100.0100, L501.2450, L500.4050 ####[facility] [address] [place], [address] ECRCL 59.61 ml/min Normal 50-[address] [facility] Comment on above: Performed By: #### L 700.6800, L100.0100, L501.2450, L500.4050 ####[facility] [address] [place], [address] GAP 12 Normal 5-[address] [facility] Comment on above: Performed By: #### L 700.6800, L100.0100, L501.2450, L500.4050 ####[facility] [address] [place], [address] T PROT 6.7 g/dL Normal 5.9-8.[address] [facility] Comment on above: Performed By: #### L 700.6800, L100.0100, L501.2450, L500.4050 ####[facility] [address] [place], [address] Comprehensive Metabolic Prof ilOrdered By: Anita Willis on 07-01-2024 AST [Catalytic activity/Vol] 30 U/L Normal <=[address] [facility] Comment on above: Performed By: #### L 700.6800, L100.0100, L501.2450, L500.4050 ####[facility] [address] [place], [address] Emergency Department Summary on 07-01-2024 Emergency Department Summary Normal [facility] Eosinophil percentageOrdered By: Anita Willis on 07-01-2024 Eosinophils/100 WBC (Bld) 0.9 % 0-[address] [facility] Epithelial cells.squamous LM Ql (Urine sed)Ordered By: Anita Willis on 07-01-2024 Epithelial cells.squamous LM.HPF (Urine sed) [#/Area] 0 /[HPF] 5-[address] [facility] Erythrocyte distribution wid th (RBC) [Ratio]Ordered By: Anita Willis on 07-01-2024 Erythrocyte distribution width (RBC) [Entitic vol] 53.1 fL High 35.1-43.[address] [facility] Erythrocyte distribution wid th ratioOrdered By: Anitaivonne Willis on 07-01-2024 Erythrocyte distribution width (RBC) [Ratio] 14.9 % High 11.6-14.[address] [facility] Erythrocyte distribution wid th standard deviationOrdered By: Anita Willis on 07-01-2024 Erythrocyte distribution width (RBC) [Ratio] 53.1 fl High 35.1-43.[address] [facility] Estimation of creatinine monico aranceOrdered By: Anita Willis on 07-01-2024 Estimated Creatinine Clearance Calc 59.61 ml/min 50-[address] [facility] GFR/1.73 sq M.predicted shewta g non-blacks MDRD (S/P/Bld) [Vol rate/Area]Ordered By: Anita Willis on 07-01-2024 Estimated GFR (MDRD) Non-Af Amer 68 >[address] [facility] Comment on above: mL/min/1.73m2 CKD-EP I Creatinine Equation (2020) Glomerular filtration rate ( GFR) estimation/1.73 sq m using serum, plasma, or whole bOrdered By: Anita Willis on 07-01-2024 GFR/1.73 sq M.predicted among non-blacks MDRD (S/P/Bld) [Vol rate/Area] 68 mL/min/{1.73_m2} >[address] [facility] Comment on above: mL/min/1.73m2 CKD-EP I Creatinine Equation (2020) Result Comment: mL/m in/1.73m2 CKD-EPI Creatinine Equation (2020) Performed By: #### L 700.6800, L100.0100, L501.2450, L500.4050 ####[facility] [address] [place], [address] Glucose Ql (U)Ordered By: Reyna Willis on 07-01-2024 Urine Glucose (UA) Normal mg/dl Normal [facility] Hematocrit Auto (Bld) [Volum e fraction]Ordered By: Anita Willis on 07-01-2024 Hematocrit (Bld) [Volume fraction] 43.5 % 37-[address] [facility] Hemoglobin measurementOrdere d By: Anita Willis on 07-01-2024 Hemoglobin (Bld) [Mass/Vol] 14.7 g/dL 12.0-15.[address] [facility] Immature granulocytes/100 WB C Auto (Bld)Ordered By: Anita Willis on 07-01-2024 Immature granulocytes/100 WBC (Bld) 0.400 % 0.0-0.[address] [facility] Comment on above: IG% - Immature Granu locytes (promyelocytes, myelocytes and metamyelocytes) > 1% indicates that a LEFT SHIFT is Present. Ketones Test strip Ql (U)Ord ered By: Anita Willis on 07-01-2024 Ketones Ql (U) Negative Negative [facility] Lipase measurementOrdered By : Anita Willis on 07-01-2024 Lipase [Catalytic activity/Vol] 35 U/L Normal 13-[address] [facility] Comment on above: Please note:LIPASE r evised reference range effective 22. New Lipase methodology. Expected to produce lower values than the previous assay method. NEW Reference Range: 13 - 75 U/L Result Comment: Liam rader note:LIPASE revised reference range effective 22.New Lipase methodology. Expected to produce lower valuesthan the previous assay method.NEW Reference Range: 13 - 75 U/L Performed By: #### L 700.6800, L100.0100, L501.2450, L500.4050 ####[facility] [address] [place], [address] Lymphocytes Auto (Unsp spec) [#/Vol]Ordered By: Anita Willis on 07-01-2024 Lymphocytes (Bld) [#/Vol] 0.97 10*3/uL 0.83-4.[address] [facility] Lymphocytes/100 WBC Auto (Un sp spec)Ordered By: Anita Willis on 07-01-2024 Lymphocytes/100 WBC (Bld) 7.5 % Low 19-[address] [facility] MCV (mean corpuscular volume ) determinationOrdered By: Anita Willis on 07-01-2024 MCV (RBC) [Entitic vol] 96.7 fL 81-99 [facility] Mean corpuscular hemoglobin (MCH) determinationOrdered By: Anita Willis on 07-01-2024 MCH (RBC) [Entitic mass] 32.7 pg High 27.0-32.[address] [facility] Mean corpuscular hemoglobin concentration (MCHC) determinationOrdered By: Anita Willis on 07-01-2024 MCHC (RBC) [Mass/Vol] 33.8 g/dL 32-36 [facility] Mean platelet volume determi nationOrdered By: Anita Willis on 07-01-2024 Platelet mean volume (Bld) [Entitic vol] 10.7 fL 6.2-12.[address] [facility] Microscopic analysis of urin e for red blood cells (RBC)Ordered By: Anita Willis on 07-01-2024 Microscopic analysis of urine for red blood cells (RBC) 0-5 SEEN /hpf 0-[address] [facility] Urine RBC 0-5 SEEN /hpf 0-[address] [facility] Monocyte percentageOrdered B y: Anita Willis on 07-01-2024 Monocytes/100 WBC (Bld) 3.1 % 0-10 [facility] Mucus LM Ql (Urine sed)Order ed By: Anita Willis on 07-01-2024 Mucus Ql (Urine sed) 0 SEEN /hpf [facility] Neutrophil percentageOrdered By: Anita Willis on 07-01-2024 Neutrophils/100 WBC (Bld) 87.7 % High 47-[address] [facility] Nitrite Test strip Ql (U)Ord ered By: Anita Willis on 07-01-2024 Nitrite Ql (U) Negative Negative [facility] No Panel InformationOrdered By: Anita Willis on 07-01-2024 30 U/L <[address] [facility] Nucleated red blood cell per centageOrdered By: Anita Willis on 07-01-2024 Nucleated RBC/100 WBC (Bld) [Ratio] 0 % 0-[address] [facility] Platelet countOrdered By: Reyna Willis on 07-01-2024 Platelets (Bld) [#/Vol] 239 10*3/uL 150-[address] [facility] Potassium measurement (mass/ volume)Ordered By: Anita Willis on 07-01-2024 Potassium (Unsp spec) [Mass/Vol] 4.0 mmol/L 3.3-5.[address] [facility] Potassium [Moles/Vol] 4.0 mmol/L Normal 3.3-5.1 [facility] Comment on above: Performed By: #### L 700.6800, L100.0100, L501.2450, L500.4050 ####[facility] [address] [place], [place], [id number] ,Serum,hCG Quali.on 07-01-2024 HCG, SERUM QUAL Negative Normal [facility] Comment on above: Performed By: #### L 700.6800, L100.0100, L501.2450, L500.4050 ####[facility] [address] [place], [address] Protein Test strip Ql (U)Ord ered By: Anita Willis on 07-01-2024 Protein Ql (U) 30 mg/dl High Negative [facility] RBC Auto (Bld) [#/Vol]Ordere d By: Anita Willis on 07-01-2024 RBC (Bld) [#/Vol] 4.50 10*6/uL 4.2-5.4 [facility] Serum beta-hCG test, qualita tiveOrdered By: Anita Willis on 07-01-2024 Beta HCG ( test) Ql Negative [facility] Serum creatinine measurement (mass/volume)Ordered By: Anita Willis on 07-01-2024 Creatinine [Mass/Vol] 1.04 mg/dL 0.70-1.20 [facility] Comment on above: Performed By: #### L 700.6800, L100.0100, L501.2450, L500.4050 ####[facility] [address] [place], [address] Serum globulin measurementOr dered By: Anita Willis on 07-01-2024 Globulin (S) [Mass/Vol] 2.5 g/dL 2.2-4.2 [facility] Comment on above: Performed By: #### L 700.6800, L100.0100, L501.2450, L500.4050 ####[facility] [address] [place], [address] Serum glucose measurement (m ass/volume)Ordered By: Anita Willis on 07-01-2024 Glucose [Mass/Vol] 103 mg/dL High 70-99 [facility] Comment on above: Performed By: #### L 700.6800, L100.0100, L501.2450, L500.4050 ####[facility] [address] [place], [address] Serum or plasma alanine hair otransferase (ALT) measurementOrdered By: Anita Willis on 07-01-2024 ALT [Catalytic activity/Vol] 27 U/L <[address] [facility] Comment on above: Performed By: #### L 700.6800, L100.0100, L501.2450, L500.4050 ####[facility] [address] [place], [address] Serum or plasma albumin leslie urement (mass/volume)Ordered By: Anita Willis on 07-01-2024 Albumin [Mass/Vol] 4.2 g/dL 3.5-5.0 [facility] Comment on above: Performed By: #### L 700.6800, L100.0100, L501.2450, L500.4050 ####[facility] [address] [place], [address] Serum or plasma albumin/glob ulin mass ratioOrdered By: Anita Willis on 07-01-2024 Albumin/Globulin [Mass ratio] 1.7 {ratio} 0.9-2.[address] [facility] Comment on above: Performed By: #### L 700.6800, L100.0100, L501.2450, L500.4050 ####[facility] [address] [place], [address] Serum or plasma alkaline delfin sphatase measurementOrdered By: Anita Willis on 07-01-2024 ALP [Catalytic activity/Vol] 116 U/L High 35-[address] [facility] Serum or plasma calcium leslie urement (mass/volume)Ordered By: Anita Willis on 07-01-2024 Calcium [Mass/Vol] 9.0 mg/dL 7.6-11.0 [facility] Comment on above: Performed By: #### L 700.6800, L100.0100, L501.2450, L500.4050 ####[facility] [address] [place], [address] Serum or plasma urea nitroge n measurement (mass/volume)Ordered By: Anita Willis on 07-01-2024 Urea nitrogen [Mass/Vol] 16 mg/dL 4-[address] [facility] Comment on above: Performed By: #### L 700.6800, L100.0100, L501.2450, L500.4050 ####[facility] [address] [place], [address] Sodium levelOrdered By: Dakotah Willis on 07-01-2024 Sodium [Moles/Vol] 139 mmol/L 133-145 [facility] Comment on above: Performed By: #### L 700.6800, L100.0100, L501.2450, L500.4050 ####[facility] [address] [place], [place], [id number] Squamous epithelial cells de tection in urine sediment by light microscopyOrdered By: Anita Willis on 07-01-2024 Epithelial cells.squamous LM Ql (Urine sed) 0-5 SEEN /hpf 5-[address] [facility] Total proteinOrdered By: Florin Willis on 07-01-2024 Protein [Mass/Vol] 6.7 g/dL 5.9-8.4 [facility] Urinalysis, Completeon 07-01 BACTERIA 2+ /hpf Normal None Seen [facility] Comment on above: Order Comment: HARITHA CTOR TO SPECIFY Performed By: #### L 400.0001 ####[facility] [address] [place], [address] EPI,SQUAMOUS 0-5 SEEN Normal 5-[address] [facility] Comment on above: Order Comment: HARITHA CTOR TO SPECIFY Performed By: #### L 400.0001 ####[facility] [address] [place], [address] RBC 0-5 SEEN Normal 0-[address] [facility] Comment on above: Order Comment: HARIHTA CTOR TO SPECIFY Performed By: #### L 400.0001 ####[facility] [address] [place], [address] Mucus Ql (Urine sed) 0 SEEN Normal [facility] Comment on above: Order Comment: HARITHA CTOR TO SPECIFY Performed By: #### L 400.0001 ####[facility] [address] [place], [address] WBC 0 SEEN Normal 0-[address] [facility] Comment on above: Order Comment: HARITHA CTOR TO SPECIFY Performed By: #### L 400.0001 ####[facility] [address] [place], [address] Urine blood detectionOrdered By: Anita Willis on 07-01-2024 Urine Occult Blood 50 /ul High Negative [facility] Urine clarityOrdered By: Florin Willis on 07-01-2024 Clarity (U) Clear Clear [facility] Urine color determinationOrd ered By: Anita Willis on 07-01-2024 Color (U) Yellow Yellow [facility] Urine glucose detectionOrder ed By: Anita Willis on 07-01-2024 Glucose Ql (U) Normal mg/dl Normal [facility] Urine leukocyte esterase det ection by dipstickOrdered By: Anita Willis on 07-01-2024 Leukocyte esterase Test strip Ql (U) Negative Negative [facility] Urine pHOrdered By: Parag Willis on 07-01-2024 pH (U) 6.0 [pH] 5.0 - 8.[address] [facility] Urine sediment bacteria coun t by microscopy (number/high power field)Ordered By: Anita Willis on 07-01-2024 Bacteria LM.HPF (Urine sed) [#/Area] 2 /[HPF] None Seen [facility] Urine specific gravity measu rementOrdered By: Anita Willis on 07-01-2024 Specific gravity (U) [Rel density] 1.010 1.002-1.[address] [facility] Urine urobilinogen measureme ntOrdered By: Anita Willis on 07-01-2024 Urobilinogen Ql (U) Normal mg/dl Normal [facility] Urobilinogen Ql (U)Ordered B y: Anita Willis on 07-01-2024 Urine Urobilinogen Normal mg/dl Normal [facility] White blood cell (WBC) count Ordered By: Anita Willis on 07-01-2024 WBC (Bld) [#/Vol] 12.9 10*3/uL High 4.4-11.0 [facility] White blood cell countOrdere d By: Anita Willis on 07-01-2024 Urine WBC 0 SEEN /hpf 0-[address] [facility] White blood cell count 0 SEEN /hpf 0-5 [facility] CBC panel Auto (Bld)on 05-21 Erythrocyte distribution width (RBC) [Ratio] 14.0 % Normal 11.5-15.0 [facility] Comment on above: Order Comment: Speci men Type: BLOOD SPECIMEN Ordering Facility: [facility] Address: [address] [place] [address] Performed By: #### 5 8410-2 #### [facility] CLIA [id number] [address] [place] Hematocrit (Bld) [Volume fraction] 49.4 % High 36.0-46.0 [facility] Comment on above: Order Comment: Speci men Type: BLOOD SPECIMEN Ordering Facility: [facility] Address: [address] [place] [address] Performed By: #### 5 8410-2 #### [facility] CLIA [id number] [address] [place] Hemoglobin (Bld) [Mass/Vol] 16.5 g/dL High 11.5-15.5 [facility] Comment on above: Order Comment: Speci men Type: BLOOD SPECIMEN Ordering Facility: [facility] Address: [address] [place] [address] Performed By: #### 5 8410-2 #### [facility] CLIA [id number] [address] [place] [facility] MCH (RBC) [Entitic mass] 32.0 pg Normal 26.0-34.0 [facility] Comment on above: Order Comment: Speci men Type: BLOOD SPECIMEN Ordering Facility: [facility] Address: [address] [place] [address] Performed By: #### 5 8410-2 #### [facility] CLIA [id number] [address] [place] MCHC (RBC) [Mass/Vol] 33.4 g/dL Normal 30.5-36.0 [facility] Comment on above: Order Comment: Speci men Type: BLOOD SPECIMEN Ordering Facility: [facility] Address: [address] [place] [address] Performed By: #### 5 8410-2 #### [facility] CLIA [id number] [address] MCV (RBC) [Entitic vol] 95.7 fL Normal 80.0-100.0 [facility] Comment on above: Order Comment: Speci men Type: BLOOD SPECIMEN Ordering Facility: [facility] Address: [address] [place] [address] Performed By: #### 5 8410-2 #### [facility] CLIA [id number] [address] [place] Nucleated RBC (Bld) [#/Vol] 10*3/uL Normal <0.01 [facility] Comment on above: Order Comment: Speci men Type: BLOOD SPECIMEN Ordering Facility: [facility] Address: [address] [place] [address] Performed By: #### 5 8410-2 #### [facility] CLIA [id number] [address] [place] Platelet mean volume (Bld) [Entitic vol] 10.0 fL Normal 9.0-12.7 [facility] Comment on above: Order Comment: Speci men Type: BLOOD SPECIMEN Ordering Facility: [facility] Address: [address] [place] [address] Performed By: #### 5 8410-2 #### [facility] CLIA [id number] [address] [place] Platelets (Bld) [#/Vol] 288 10*3/uL Normal 150-400 [facility] Comment on above: Order Comment: Speci men Type: BLOOD SPECIMEN Ordering Facility: [facility] Address: [address] [place] [address] Performed By: #### 5 8410-2 #### [facility] CLIA [id number] [address] [place] RBC (Bld) [#/Vol] 5.16 10*6/uL Normal 3.90-5.20 [facility] Comment on above: Order Comment: Speci men Type: BLOOD SPECIMEN Ordering Facility: [facility] Address: [address] [place] [address] Performed By: #### 5 8410-2 #### [facility] CLIA [id number] [address] [place] WBC (Bld) [#/Vol] 12.02 10*3/uL High 3.70-11.00 [facility] Comment on above: Order Comment: Speci men Type: BLOOD SPECIMEN Ordering Facility: [facility] Address: [address] [place] [address] Performed By: #### 5 8410-2 #### [facility] CLIA [id number] [address] [place] [address] [place] CNCOon 05-21-2024 CNCO Letter Text Normal [facility] CNDSon 05-21-2024 CNDS HNO ID: [id number] Author: DEX SUTHERLAND MD Service: Family Practice Author Type: Physician Type: Discharge Summary Filed: 05/22/2024 06:59 Note Text: DISCHARGE SUMMARY PATIENT NAME: Michelle Mitchell Code Status: Prior Highest Readmission Risk Score: 18 The 30 day readmissions risk score is derived from an internally validated risk model which evaluates patient level characteristics, utilization history, medication orders and lab results up until the day of discharge. Patients with a score of 39 or above are considered highest risk for readmission. Specific patient level drivers will be listed at the bottom of the summary. Admission Information Admission Information ADMIT DATE: 05/15/2024 DISCHARGE DATE: 05/21/2024 MY DOCTORS AND MEDICAL TEAM: [facility] Doctor: Dex Sutherland MD Primary Care Provider: Dex Sutherland MD My Medical Team Members: Treatment Team: Attending Provider: Dex Sutherland MD Nurse Practitioner: Josie Srinivasan APRN.[employer] Consulting: Luis Miguel Vuong MD MY CONDITION AT DISCHARGE: Stable REASON I WAS IN THE HOSPITAL: leg abscess SUMMARY OF WHAT HAPPENED WHILE I WAS IN THE HOSPITAL: you were seen in the office with worsening pain and infection in your leg. Work up in the ER found abscess and low blood pressure. Your liver enzymes were up. You had some chest pain/tightness. OTHER PROBLEMS/DIAGNOSIS: Principal Problem: Abscess of left leg Active Problems: ICD (implantable cardioverter-defibrillat or), single, in situ Chest pain Nicotine use disorder, F17.2 HOCM (hypertrophic obstructive cardiomyopathy) (HCC) Abnormal CXR Leg wound, left, initial encounter Resolved Problems: * No resolved hospital problems. * OPERATIONS PERFORMED WHILE IN THE HOSPITAL: None IMPORTANT TEST/PROCEDURES: No procedures performed TEST RESULTS NOT AVAILABLE AT THIS TIME: No pending results Discharge Disposition Discharge Disposition: Home With Self Care Activity When You Leave the Hospital Resume pre-hospital activity Diet Instructions Resume your pre-hospital diet Call Your Doctor If Your temperature is greater than 101F Follow Up Appointments Follow-Up Appointment When: In 1 week Patient/Parents to call for appointment?: Yes Dex Sutherland MD [phone] [facility] [address] PCP Requested Referral GENERAL: alert, no distress, cooperative SKIN: No rashes or lesions. OROPHARYNX: Oropharynx normal. NECK: no jugulovenous distention, supple LUNGS: Lungs clear to auscultation. CARDIAC: normal S1 and S2; no rubs, murmurs, or gallops ABDOMEN: Abdomen soft, non-tender. BS normal. No masses or organomegaly. EXTREMETIES: No deformities, cyanosis, edema, clubbing or skin discoloration. NEURO: Alert, oriented X 3, Gait normal. Motor and Sensation grossly intact., Treatment Team: Nurse Practitioner: Josie Srinivasan APRN.[facility] FOLLOW-UP APPOINTMENTS ALREADY SCHEDULED WITH A [facility] PROVIDER: No future appointments. ALLERGIES Allergen Reactions Prozac [Fluoxetine * Other: See Comments suicidal ideations Ativan [Lorazepam] Vomiting Azithromycin Intolerance [place] Anaphylaxis [place] Anaphylaxis pickles Fish Anaphylaxis Levofloxacin In D5w Swelling, Itching IV site swollen, ceased after d/c, redness and itching at site Neurontin [Gabapent* Mental Status Change Shellfish Anaphylaxis Tigan [Trimethobenz* Anaphylaxis Ultram [Tramadol] Hives Pt states she also pukes a lot Vicodin [Hydrocodon* Shortness of Breath pt states that she is able to take percocet Zofran [Ondansetron* Hives, Swelling, GI Upset DISCHARGE MEDICATION: Medication List START taking these medications cephALEXin 500 mg capsule Commonly known as: KEFLEX Take 1 capsule by mouth three times a day for 7 days. oxyCODONE IR 5 mg immediate release tablet Commonly known as: ROXICODONE Take 1 tablet by mouth every 6 hours as needed for up to 5 days. sulfamethoxazole-trimeth oprim 800-160 mg per tablet Commonly known as: BACTRIM DS Take 1 tablet by mouth two times a day. CONTINUE taking these medications AMBIEN 10 mg Generic drug: zolpidem VENTOLIN HFA 90 mcg/actuation inhaler Generic drug: albuterol HFA vortioxetine 10 mg tablet Commonly known as: TRINTELLIX XANAX 0.5 mg tablet Generic drug: ALPRAZolam Where to Get Your Medications These medications were sent to [id number] - [place] [address] [address] [facility] - [phone] [address] [facility] [address] cephALEXin 500 mg capsule oxyCODONE IR 5 mg immediate release tablet Additional Information Additional Health Information I Need to Know After I Leave the Hospital No additional instructions. The patient's risk for 30-day readmission is determined using the following contributing factors: Predictive Model Detai (more content not included)... Normal [facility] Comprehensive metabolic 2000 panelon 05-21-2024 Albumin [Mass/Vol] 4.0 g/dL Normal 3.9-4.9 [facility] Comment on above: Order Comment: David horton Type: BLOOD SPECIMENOrdering Facility: [facility] Address: [address] [place] [address] Performed By: #### 2 4323-8 ####[facility]ORATORYCLIA [id number] [address] ALP [Catalytic activity/Vol] 223 U/L High 34-123 [facility] Comment on above: Order Comment: David horton Type: BLOOD SPECIMENOrdering Facility: [facility] Address: [address] [place] [address] Performed By: #### 2 4323-8 ####[facility]ORATORYCLIA [id number] [place] [address] [place] ALT [Catalytic activity/Vol] 113 U/L High 7-38 [facility] Comment on above: Order Comment: David horton Type: BLOOD SPECIMENOrdering Facility: [facility] Address: [address] [place] [address] Performed By: #### 2 4323-8 ####[facility]ORATORYCLIA [id number] [place] [address] [place] Anion gap [Moles/Vol] 17 mmol/L High 8-15 [facility] Comment on above: Order Comment: Speci men Type: BLOOD SPECIMENOrdering Facility: [facility] Address: [address] [place] [address] Performed By: #### 2 4323-8 ####[facility] LABORATORYCLIA [id number] [place] [address] [place] AST [Catalytic activity/Vol] Normal [facility] Comment on above: Order Comment: Speci men Type: BLOOD SPECIMENOrdering Facility: [facility] Address: [address] [place] [address] Result Comment: Unab le to assay due to interference from hemolysis. Suggest reorder as clinically indicated. Performed By: #### 2 4323-8 ####[facility]ORATORYCLIA [id number] [place] [address] [place] Bilirubin [Mass/Vol] 0.4 mg/dL Normal 0.2-1.3 [facility] Comment on above: Order Comment: Speci men Type: BLOOD SPECIMENOrdering Facility: [facility] Address: [address] [place] [address] Performed By: #### 2 4323-8 ####[facility] LABORATORYCLIA [id number] [place] [address] [place] Calcium [Mass/Vol] 9.8 mg/dL Normal 8.5-10.2 [facility] Comment on above: Order Comment: Speci men Type: BLOOD SPECIMENOrdering Facility: [facility] Address: [address] [place] [address] Performed By: #### 2 4323-8 ####[facility]ORATORYCLIA [id number] [place] [address] [place] Chloride [Moles/Vol] 95 mmol/L Low 98-107 [facility] Comment on above: Order Comment: Speci men Type: BLOOD SPECIMENOrdering Facility: [facility] Address: [address] [place] [address] Performed By: #### 2 4323-8 ####[facility]ORATORYCLIA [id number] [place] [address] [place] CO2 [Moles/Vol] 22 mmol/L Normal 22-30 [facility] Comment on above: Order Comment: David sol Type: BLOOD SPECIMENOrdering Facility: [facility] Address: [address] [place] [address] Performed By: #### 2 4323-8 ####[facility]ORATORYCLIA [id number] [address] STATES OF [facility] Creatinine [Mass/Vol] 0.94 mg/dL Normal 0.58-0.96 [facility] Comment on above: Order Comment: David men Type: BLOOD SPECIMENOrdering Facility: [facility] Address: [address] [place] [address] Performed By: #### 2 4323-8 ####[facility]ORATORYCLIA [id number] [address] Creatinine and Glomerular filtration rate.predicted panel (S/P/Bld) 77 mL/min/1.73m??? Normal >=60 [facility] Comment on above: Order Comment: David sol Type: BLOOD SPECIMENOrdering Facility: [facility] Address: [address] [place] [address] Result Comment: Sandie mated Glomerular Filtration Rate (eGFR) is calculated using the 2020 CKD-EPI creatinine equation. This equation utilizes serum creatinine, sex, and age as parameters. The creatinine assay has traceable calibration to isotope dilution-mass spectrometry. Refer to KDIGO guidelines for clinical interpretation. In patients with unstable renal function, e.g. those with acute kidney injury, the eGFR may not accurately reflect actual GFR. Performed By: #### 2 4323-8 ####[facility]ATORYCLIA [id number] [address] Glucose [Mass/Vol] 82 mg/dL Normal 74-99 [facility] Comment on above: Order Comment: David horton Type: BLOOD SPECIMENOrdering Facility: [facility] Address: [address] [place] [address] Result Comment: The [place] Diabetes Association (ADA) provides guidance for cutoff values for fasting glucose and random glucose. The ADA defines fasting as no caloric intake for at least 8 hours. Fasting plasma glucose results between 100 to 125 mg/dL indicate increased risk for diabetes (prediabetes). Fasting plasma glucose results greater than or equal to 126 mg/dL meet the criteria for diagnosis of diabetes. In the absence of unequivocal hyperglycemia, results should be confirmed by repeat testing. In a patient with classic symptoms of hyperglycemia or hyperglycemic crisis, random plasma glucose results greater than or equal to 200 mg/dL meet the criteria for diagnosis of diabetes. Reference: Standards of Medical Care in Diabetes 2016, [place] [employer] Association. Diabetes Care. 2016.39(Suppl 1). Performed By: #### 2 4323-8 ####[facility]ORATORYCLIA [id number] [address] STATES [facility] Potassium [Moles/Vol] 4.7 mmol/L Normal 3.7-5.1 [facility] Comment on above: Order Comment: Kianai sol Type: BLOOD SPECIMENOrdering Facility: [facility] Address: [address] [place] [address] Performed By: #### 2 4323-8 ####[facility]ORATORYCLIA [id number] [place] [address] [place] Protein [Mass/Vol] 7.0 g/dL Normal 6.3-8.0 [facility] Comment on above: Order Comment: Speci sol Type: BLOOD SPECIMENOrdering Facility: [facility] Address: [address] [place] [address] Performed By: #### 2 4323-8 ####[facility]ORATORYCLIA [id number] [address] [place] Sodium [Moles/Vol] 134 mmol/L Low 136-144 [facility] Comment on above: Order Comment: Speci men Type: BLOOD SPECIMENOrdering Facility: [facility] Address: [address] [place] [address] Performed By: #### 2 4323-8 ####[facility]ORATORYCLIA [id number] [place] [address] [place] Urea nitrogen [Mass/Vol] 22 mg/dL High 7-21 [facility] Comment on above: Order Comment: Kianai men Type: BLOOD SPECIMENOrdering Facility: [facility] Address: [address] [place] [address] Performed By: #### 2 4323-8 ####[facility]ORATORYCLIA [id number] [place] [address] [place] ALLIED HEALTHon 05-20-2024 ALLIED HEALTH HNO ID: [id number] Author: BONITA MODI RDMS Service: ? Author Type: Claim Inspector Type: Allied Health Filed: 05/20/2024 14:34 Note Text: Radiology Service Progress Note PATIENT NAME: Michelle Mitchell DATE OF SERVICE: May 20, 2024 TIME: 2:34 PM PATIENT IDENTITY VERIFICATION COMPLETED USING TWO (2) IDENTIFIERS: Name and Date of confirmed by patient verbally. FALL SCREENING: Has the patient had 2 falls in the last year or 1 fall with injury or currently using an Ambulatory Assistive Device (Walker, Cane, Wheelchair, Crutches, etc.)? Inpatient: Screened on floor PATIENT GENDER DATA: Assigned female at . status: : No status: NO. PATIENT RELEVANT IMPLANT DATA REVIEWED: Not Applicable PATIENT PRESENTS WITH AN IMPLANTABLE OR ATTACHED REHABILITATION TECH: No RADIOLOGY DEPARTMENT: Ultrasound PERIPHERAL IV DATA: Not applicable SIGNED BY: Bonita Modi RDMS May 20, 2024 2:34 PM Normal [facility] CBC panel Auto (Bld)on 05-20 Erythrocyte distribution width (RBC) [Ratio] 13.8 % Normal 11.5-15.0 [facility] Comment on above: Order Comment: David horton Type: BLOOD SPECIMENOrdering Facility: [facility] Address: [address] [place] [address] Performed By: #### 5 8410-2 ####[facility] LABORATORYCLIA [id number] [place] [id number] [place] Hematocrit (Bld) [Volume fraction] 49.3 % High 36.0-46.0 [facility] Comment on above: Order Comment: David horton Type: BLOOD SPECIMENOrdering Facility: [facility] Address: [address] [place] [address] Performed By: #### 5 8410-2 ####[facility]ORATORYCLIA [id number] [place] [id number] [place] Hemoglobin (Bld) [Mass/Vol] 16.3 g/dL High 11.5-15.5 [facility] Comment on above: Order Comment: Speci men Type: BLOOD SPECIMENOrdering Facility: [facility] Address: [address] [place] [address] Performed By: #### 5 8410-2 ####[facility]ORATORYCLIA [id number] [address] MCH (RBC) [Entitic mass] 31.3 pg Normal 26.0-34.0 [facility] Comment on above: Order Comment: Speci men Type: BLOOD SPECIMENOrdering Facility: [facility] Address: [address] [place] [address] Performed By: #### 5 8410-2 ####[facility]ATORYCLIA [id number] [address] MCHC (RBC) [Mass/Vol] 33.1 g/dL Normal 30.5-36.0 [facility] Comment on above: Order Comment: Speci men Type: BLOOD SPECIMENOrdering Facility: [facility] Address: [address] [place] [address] Performed By: #### 5 8410-2 ####[facility]ORATORYCLIA [id number] [address] MCV (RBC) [Entitic vol] 94.8 fL Normal 80.0-100.0 [facility] Comment on above: Order Comment: Speci men Type: BLOOD SPECIMENOrdering Facility: [facility] Address: [address] [place] [address] Performed By: #### 5 8410-2 ####[facility]ATORYCLIA [id number] [address] Nucleated RBC (Bld) [#/Vol] 10*3/uL Normal <0.01 [facility] Comment on above: Order Comment: Speci men Type: BLOOD SPECIMENOrdering Facility: [facility] Address: [address] [place] [address] Performed By: #### 5 8410-2 ####[facility]ATORYCLIA [id number] [address] Platelet mean volume (Bld) [Entitic vol] 9.8 fL Normal 9.0-12.7 [facility] Comment on above: Order Comment: Speci men Type: BLOOD SPECIMENOrdering Facility: [facility] Address: [address] [place] [address] Performed By: #### 5 8410-2 ####[facility]ATORYCLIA [id number] [address] [place] Platelets (Bld) [#/Vol] 326 10*3/uL Normal 150-400 [facility] Comment on above: Order Comment: Speci men Type: BLOOD SPECIMENOrdering Facility: [facility] Address: [address] [place] [address] Performed By: #### 5 8410-2 ####[facility] LABORATORYCLIA [id number] [place] [address] [facility] [place] RBC (Bld) [#/Vol] 5.20 10*6/uL Normal 3.90-5.20 [facility] Comment on above: Order Comment: Speci men Type: BLOOD SPECIMENOrdering Facility: [facility] Address: [address] [place] [address] Performed By: #### 5 8410-2 ####[facility]ORATORYCLIA [id number] [place] [address] [place] WBC (Bld) [#/Vol] 21.90 10*3/uL High 3.70-11.00 [facility] Comment on above: Order Comment: Speci men Type: BLOOD SPECIMENOrdering Facility: [facility] Address: [address] [place] [address] Performed By: #### 5 8410-2 ####[facility]ATORYCLIA [id number] [address] [place] CONSULT PROGon 05-20-2024 CONSULT PROG HNO ID: [id number] Author: TATI VANG RPh Service: Pharmacy Author Type: Pharmacist Type: Consult Progress Note Filed: 05/20/2024 08:43 Note Text: PHARMACY VANCOMYCIN DOSING NOTE Patient Name: Michelle Mitchell Admission Date: 05/15/2024 Date of Consult: 05/20/2024 Time of Consult: 8:40 AM Indication: Skin/soft tissue infection Goal Range: 10-20 mcg/mL RECOMMENDATIONS/PLAN: Pharmacy consulted for vancomycin dosing for Michelle Mitchell, a 43 year old female. 1. Patient is currently ordered Vancomycin 750 mg IV q12h. Today is day 6 of therapy. 2. The most recent vancomycin level was drawn and addressed on 05/17. 3. The present dose of vancomycin is the recommended dosage for this patient at this time. Continue therapy as prescribed. 4. The next vancomycin level will be ordered for 05/24 unless clinically indicated sooner. (Pharmacy will order) We will follow patient renal function, vancomycin levels and doses with you during the course of therapy. Additional recommendations will appear in follow up notes. If you have any questions, please contact pharmacy at 1340. Age: [age] year old Allergies: ALLERGIES Allergen Reactions Prozac [Fluoxetine * Other: See Comments suicidal ideations Ativan [Lorazepam] Vomiting Azithromycin Intolerance [place] Anaphylaxis [place] Anaphylaxis pickles Fish Anaphylaxis Levofloxacin In D5w Swelling, Itching IV site swollen, ceased after d/c, redness and itching at site Neurontin [Gabapent* Mental Status Change Shellfish Anaphylaxis Tigan [Trimethobenz* Anaphylaxis Ultram [Tramadol] Hives Pt states she also pukes a lot Vicodin [Hydrocodon* Shortness of Breath pt states that she is able to take percocet Zofran [Ondansetron* Hives, Swelling, GI Upset Last 3 Encounter Wt Readings: Date: Wt: 05/15/2024 52.7 kg (116 lb 2.9 oz) 04/25/2021 54.4 kg (120 lb) 04/24/2021 59 kg (130 lb) Last 1 Encounter Ht Readings: Date: Ht: 05/15/2024 160 cm (5' 3) CrCl: 66 mL/min Temp (24hrs), Av.8 ?C (98.2 ?F), Min:36.7 ?C (98.1 ?F), Max:36.8 ?C (98.3 ?F) - Current Temp: 36.7 ?C (98.1 ?F) Labs BUN (mg/dL) Date Value 05/20/2024 18 05/19/2024 20 05/18/2024 17 Creatinine (mg/dL) Date Value 05/20/2024 0.90 05/19/2024 1.04 (H) 05/18/2024 1.00 (H) WBC (k/uL) Date Value 05/20/2024 21.90 (H) 05/19/2024 10.65 05/18/2024 9.76 Vancomycin Levels: Vancomycin (ug/mL) Date/Time Value 05/17/2024 1240 14.7 Tati Vang [facility] Normal [facility] Comprehensive metabolic 2000 panelon 05-20-2024 Albumin [Mass/Vol] 4.2 g/dL Normal 3.9-4.9 [facility] Comment on above: Order Comment: Speci men Type: BLOOD SPECIMENOrdering Facility: [facility] Address: [address] [place] [address] Performed By: #### 2 4323-8, 3040-3 ####[facility]ORATORYCLIA [id number] [place] [address] [place] ALP [Catalytic activity/Vol] 228 U/L High 34-123 [facility] Comment on above: Order Comment: Speci men Type: BLOOD SPECIMENOrdering Facility: [facility] Address: [address] [place] [address] Performed By: #### 2 4323-8, 3040-3 ####[facility]ORATORYCLIA [id number] [address] [place] ALT [Catalytic activity/Vol] 50 U/L High 7-38 [facility] Comment on above: Order Comment: Speci men Type: BLOOD SPECIMENOrdering Facility: [facility] Address: [address] [place] [address] Performed By: #### 2 4323-8, 3040-3 ####[facility]ORATORYCLIA [id number] [address] STATES [facility] Anion gap [Moles/Vol] 14 mmol/L Normal 8-15 [facility] Comment on above: Order Comment: Speci men Type: BLOOD SPECIMENOrdering Facility: [facility] Address: [address] [place] [address] Performed By: #### 2 4323-8, 3040-3 ####[facility]ORATORYCLIA [id number] [place] [address] [place] AST [Catalytic activity/Vol] 34 U/L Normal 13-35 [facility] Comment on above: Order Comment: Speci men Type: BLOOD SPECIMENOrdering Facility: [facility] Address: [address] [place] [address] Performed By: #### 2 4323-8, 3040-3 ####[facility] LABORATORYCLIA [id number] [place] [address] [place] Bilirubin [Mass/Vol] 0.4 mg/dL Normal 0.2-1.3 [facility] Comment on above: Order Comment: Speci men Type: BLOOD SPECIMENOrdering Facility: [facility] Address: [address] [place] [address] Performed By: #### 2 4323-8, 0-3 ####[facility] LABORATORYCLIA [id number] [place] [address] [place] Calcium [Mass/Vol] 10.3 mg/dL High 8.5-10.2 [facility] Comment on above: Order Comment: Speci men Type: BLOOD SPECIMENOrdering Facility: [facility] Address: [address] [place] [address] Performed By: #### 2 4323-8, 3040-3 ####[facility]ORATORYCLIA [id number] [place] [address] [place] Chloride [Moles/Vol] 94 mmol/L Low 98-107 [facility] Comment on above: Order Comment: Speci men Type: BLOOD SPECIMENOrdering Facility: [facility] Address: [address] [place] [address] Performed By: #### 2 4323-8, 3040-3 ####[facility]ORATORYCLIA [id number] [place] [address] [place] CO2 [Moles/Vol] 25 mmol/L Normal 22-30 [facility] Comment on above: Order Comment: Speci men Type: BLOOD SPECIMENOrdering Facility: [facility] Address: [address] [place] [address] Performed By: #### 2 4323-8, 3040-3 ####[facility] LABORATORYCLIA [id number] [place] [address] [place] Creatinine [Mass/Vol] 0.90 mg/dL Normal 0.58-0.96 [facility] Comment on above: Order Comment: David horton Type: BLOOD SPECIMENOrdering Facility: [facility] Address: [address] [place] [address] Performed By: #### 2 4323-8, 3040-3 ####[facility] LABORATORYCLIA [id number] [place] [address] [place] Creatinine and Glomerular filtration rate.predicted panel (S/P/Bld) 81 mL/min/1.73m??? Normal >=60 [facility] Comment on above: Order Comment: [facility] Type: BLOOD SPECIMENOrdering Facility: [facility] Address: [address] [place] [address] Result Comment: Sandie mated Glomerular Filtration Rate (eGFR) is calculated using the 2020 CKD-EPI creatinine equation. This equation utilizes serum creatinine, sex, and age as parameters. The creatinine assay has traceable calibration to isotope dilution-mass spectrometry. Refer to KDIGO guidelines for clinical interpretation. In patients with unstable renal function, e.g. those with acute kidney injury, the eGFR may not accurately reflect actual GFR. Performed By: #### 2 4323-8, 3040-3 ####[facility] LABORATORYCLIA [id number] [place] [id number] [place] Glucose [Mass/Vol] 98 mg/dL Normal 74-99 [facility] Comment on above: Order Comment: David horton Type: BLOOD SPECIMENOrdering Facility: [facility] Address: [address] [place] [address] Result Comment: The [place] Diabetes Association (ADA) provides guidance for cutoff values for fasting glucose and random glucose. The ADA defines fasting as no caloric intake for at least 8 hours. Fasting plasma glucose results between 100 to 125 mg/dL indicate increased risk for diabetes (prediabetes). Fasting plasma glucose results greater than or equal to 126 mg/dL meet the criteria for diagnosis of diabetes. In the absence of unequivocal hyperglycemia, results should be confirmed by repeat testing. In a patient with classic symptoms of hyperglycemia or hyperglycemic crisis, random plasma glucose results greater than or equal to 200 mg/dL meet the criteria for diagnosis of diabetes. Reference: Standards of Medical Care in Diabetes 2016, [place] [employer] Association. Diabetes Care. 2016.39(Suppl 1). Performed By: #### 2 4323-8, 3040-3 ####[facility] LABORATORYCLIA [id number] [place] [address] [place] Potassium [Moles/Vol] 4.4 mmol/L Normal 3.7-5.1 [facility] Comment on above: Order Comment: David horton Type: BLOOD SPECIMENOrdering Facility: [facility] Address: [address] [place] [address] Performed By: #### 2 4323-8, 0-3 ####[facility] LABORATORYCLIA [id number] [place] [address] [place] Protein [Mass/Vol] 7.4 g/dL Normal 6.3-8.0 [facility] Comment on above: Order Comment: David horton Type: BLOOD SPECIMENOrdering Facility: [facility] Address: [address] [place] [address] Performed By: #### 2 4323-8, 0-3 ####[facility] LABORATORYCLIA [id number] [place] [address] [place] Sodium [Moles/Vol] 133 mmol/L Low 136-144 [facility] Comment on above: Order Comment: David horton Type: BLOOD SPECIMENOrdering Facility: [facility] Address: [address] [place] [address] Performed By: #### 2 4323-8, 3040-3 ####[facility] LABORATORYCLIA [id number] [place] [id number] [place] Urea nitrogen [Mass/Vol] 18 mg/dL Normal 7-21 [facility] Comment on above: Order Comment: David horton Type: BLOOD SPECIMENOrdering Facility: [facility] Address: [address] [place] [address] Performed By: #### 2 4323-8, 0-3 ####[facility]ORY[facility]IA [id number] [place] [address] [place] Lipase SerPl-cCncon 05-21-19 25 Lipase [Catalytic activity/Vol] 22 U/L Normal 16-61 [facility] Comment on above: Order Comment: Speci men Type: BLOOD SPECIMENOrdering Facility: [facility] Address: [address] [place] [address] Performed By: #### 2 4323-8, 3040-3 ####[facility] [id number] [place] [address] [place] US ABD RIGHT UPPER QUADRANTo n 05-20-2024 US ABD RIGHT UPPER QUADRANT * * *Final Report* * * DATE OF EXAM: May 20 2024 2:33PM JULIUS 1032 - US ABD RIGHT UPPER QUADRANT / PROCEDURE REASON: Abn liver function tests (LFTs) * * * * Physician Interpretation * * * * EXAMINATION: RIGHT UPPER QUADRANT ULTRASOUND HISTORY: Abn liver function tests (LFTs) TECHNIQUE: Sonography of the right upper quadrant was performed. Images were obtained and stored in a permanent archive. MQ: URUQ_2 COMPARISON: CT abdomen and pelvis 04/20/2018 RESULT: Pancreas: Suboptimal pancreatic visualization. Liver: Echotexture: Normal, homogeneous. Echogenicity: Normal Surface contour: Smooth Lesions: none Main portal vein appears patent. Biliary: No intrahepatic biliary duct dilation. CBD: Up to 8mm diameter. Gallbladder: Prior cholecystectomy Right Kidney: No hydronephrosis. Ascites: None. - IMPRESSION: There is mild biliary ductal prominence. This is sometimes seen after cholecystectomy. Assembly Department Supervisor: PSCManjinder Transcribe Date/Time: May 20 2024 2:35P Dictated by : KASIE GREGORY MD This examination was interpreted and the report reviewed and electronically signed by: KASIE GREGORY MD on May 20 2024 2:36PM EST [id number] Normal [facility] ALLIED HEALTHon 05-19-2024 ALLIED HEALTH HNO ID: [id number] Author: ABELARDO SINGH CT Service: Radiology Author Type: Technologist Type: Allied Health Filed: 05/19/2024 09:57 Note Text: Radiology Service Progress Note PATIENT NAME: Michelle Mitchell DATE OF SERVICE: May 19, 2024 TIME: 9:56 AM PATIENT IDENTITY VERIFICATION COMPLETED USING TWO (2) IDENTIFIERS: Name and Date of confirmed by patient verbally. FALL SCREENING: Has the patient had 2 falls in the last year or 1 fall with injury or currently using an Ambulatory Assistive Device (Walker, Cane, Wheelchair, Crutches, etc.)? Inpatient: Screened on floor PATIENT GENDER DATA: Assigned female at . status: : No status: NO. PATIENT RELEVANT IMPLANT DATA REVIEWED: Not Applicable PATIENT PRESENTS WITH AN IMPLANTABLE OR ATTACHED REHABILITATION TECH: No RADIOLOGY DEPARTMENT: General X-ray: Exam(s) Completed: Chest X-Ray PERIPHERAL IV DATA: Not applicable SIGNED BY: MIRACLE Gomez May 19, 2024 9:56 AM Normal [facility] CBC panel Auto (Bld)on 05-19 Erythrocyte distribution width (RBC) [Ratio] 14.2 % Normal 11.5-15.0 [facility] Comment on above: Order Comment: David horton Type: BLOOD SPECIMEN Ordering Facility: [facility] Address: [address] [place] [address] Performed By: #### 5 8410-2 #### [facility] CLIA [id number] [address] [place] [address] [place] Hematocrit (Bld) [Volume fraction] 52.0 % High 36.0-46.0 [facility] Comment on above: Order Comment: David horton Type: BLOOD SPECIMEN Ordering Facility: [facility] Address: [address] [place] [address] Performed By: #### 5 8410-2 #### [facility] CLIA [id number] [address] [place] [address] [place] Hemoglobin (Bld) [Mass/Vol] 16.6 g/dL High 11.5-15.5 [facility] Comment on above: Order Comment: David horton Type: BLOOD SPECIMEN Ordering Facility: [facility] Address: [address] [place] [address] Performed By: #### 5 8410-2 #### [facility] CLIA [id number] [address] [place] [address] [place] MCH (RBC) [Entitic mass] 31.3 pg Normal 26.0-34.0 [facility] Comment on above: Order Comment: Speci men Type: BLOOD SPECIMEN Ordering Facility: [facility] Address: [address] [place] [address] Performed By: #### 5 8410-2 #### [facility] CLIA [id number] [address] MCHC (RBC) [Mass/Vol] 31.9 g/dL Normal 30.5-36.0 [facility] Comment on above: Order Comment: Speci men Type: BLOOD SPECIMEN Ordering Facility: [facility] Address: [address] [place] [address] Performed By: #### 5 8410-2 #### [facility] CLIA [id number] [address] MCV (RBC) [Entitic vol] 97.9 fL Normal 80.0-100.0 [facility] Comment on above: Order Comment: Speci men Type: BLOOD SPECIMEN Ordering Facility: [facility] Address: [address] [place] [address] Performed By: #### 5 8410-2 #### [facility] CLIA [id number] [address] Nucleated RBC (Bld) [#/Vol] 10*3/uL Normal <0.01 [facility] Comment on above: Order Comment: Speci men Type: BLOOD SPECIMEN Ordering Facility: [facility] Address: [address] [place] [address] Performed By: #### 5 8410-2 #### [facility] CLIA [id number] [address] [place] Platelet mean volume (Bld) [Entitic vol] 10.3 fL Normal 9.0-12.7 [facility] Comment on above: Order Comment: Speci men Type: BLOOD SPECIMEN Ordering Facility: [facility] Address: [address] [place] [address] Performed By: #### 5 8410-2 #### [facility] CLIA [id number] [address] [place] [address] [facility] [place] Platelets (Bld) [#/Vol] 346 10*3/uL Normal 150-400 [facility] Comment on above: Order Comment: Speci men Type: BLOOD SPECIMEN Ordering Facility: [facility] Address: [address] [place] [address] Performed By: #### 5 8410-2 #### [facility] CLIA [id number] [address] [place] [address] [facility] [place] RBC (Bld) [#/Vol] 5.31 10*6/uL High 3.90-5.20 [facility] Comment on above: Order Comment: Speci men Type: BLOOD SPECIMEN Ordering Facility: [facility] Address: [address] [place] [address] Performed By: #### 5 8410-2 #### [facility] CLIA [id number] [address] OF [place] WBC (Bld) [#/Vol] 10.65 10*3/uL Normal 3.70-11.00 [facility] Comment on above: Order Comment: Speci men Type: BLOOD SPECIMEN Ordering Facility: [facility] Address: [address] [place] [address] Performed By: #### 5 8410-2 #### [facility] CLIA [id number] [address] CONSULTon 05-19-2024 CONSULT HNO ID: [id number] Author: LUIS MIGUEL VUONG MD Service: Cardiovascular Disease Author Type: Physician Type: Consults Filed: 05/19/2024 16:57 Note Text: CONSULT: CARDIOLOGY SERVICE PATIENT NAME: Michelle Mitchell DATE of SERVICE: 05/19/2024 TIME of SERVICE: 4:43 PM REASON FOR CONSULT: Chest pain REQUESTING PHYSICIAN: PRIMARY CARE PHYSICIAN: Dex Sutherland MD Ms. Mitchell is a 43 year old lady with HOCM,status post ICD,history of pericarditis,GERD presents with left leg abscess. She also complains of chest pain which is non exertional and non radiating and not associated with dyspnea or diaphoresis. She is at very low risk for CAD. Her ecg looks normal and her troponin is slightly elevated but again he has active leg wound. No history of diabetes or hypertension. She is known to have low normal EF and mild to moderate pulmonary hypertension. No history of productive cough or fever. No palpitations or dizziness. ASSESSMENT AND PLAN: Non cardiac chest pain HOCM and status post ICD Left leg wound/abscess Would leave her on current therapy Needs no further cardiac work up PAST MEDICAL HISTORY: PAST MEDICAL HISTORY Diagnosis Date Breast cancer (HCC) Age 17 treated with radiation, lumpectomy and masectomy CIS (carcinoma in situ of cervix) Colon polyp 07/2015 Congestive heart failure (HCC) HOCM DVT (deep venous thrombosis) (HCC) Endometrial cancer (HCC) treated with ablation Gastroesophageal reflux disease 08/17/2017 GERD (gastroesophageal reflux disease) Hypertr obst cardiomyop ICD (implantable cardiac defibrillator) battery depletion Kidney stone Migraine Ovarian epithelial cancer (HCC) This diagnosis unlikely as both ovaries present 05/09/2018 laparoscopy Pericarditis PUD (peptic ulcer disease) Pulmonary embolism (HCC) 11/2016 Vaginal Pap smear with ASC-US 12/2016 PAST SURGICAL HISTORY: PAST SURGICAL HISTORY Procedure Laterality Date ANES PERMANENT TRANSVENOUS PACEMAKER INSERTION 2006 ICD implant, [facility] ANESTHESIA TUBAL LIGATION/TRANSECTION APPENDECTOMY 05/05/2014 , lap BREAST LUMPECTOMY HX Left 1997 with radiation CHOLECYSTECTOMY HX 08/2010 lap COLONOSCOPY AND POLYPECTOMY 08/07/2015 CONIZATION CERVIX W/WO DANDC RPR KNIFE/LASER CIS EGD 08/25/2017 Tabbaa- normal ENDOMETRIAL ABLATION WITH US GUIDANCE for abnormal uterine bleeding EXCISION OF CYST 08/23/2017 Dr. Velasco Excision of sebaceous cyst IMPLANTABLE CARDIAC DEFIB ICD 02/2009, 10/19/2016 LAPAROSCOPY DIAGNOSTIC 07/21/2015 Lysis of adhesions, MIDLINE INSERTION/CONSULT 01/18/2017 PAST SURGICAL HISTORY OF 05/24/2014 Laparoscopy, FAMILY HISTORY: FAMILY HISTORY Problem Relation Age of Onset Heart Mother heart valve replaced, was in a car accident in early age Breast Cancer Mother dx age 50 DVT Mother Heart Father IHSS, CHF, HOCM other (Paternal half-sister) Sister Paternal half-sister; on transplant list other (HOCM) Sister Heart Paternal Grandmother stroke, at age 43 Heart Paternal Grandfather at age 45 Heart Paternal Aunt at age 27 Heart Paternal Aunt at age 29 Cancer Sister 20 Brain Breast Cancer Sister 28 Colon Cancer Sister 26 DVT Sister Heart Sister Reported HOCM, heart transplant at 34 SOCIAL HISTORY: Social History Tobacco Use Smoking status: Every Day Current packs/day: 0.25 Average packs/day: 0.3 packs/day for 42.2 years (10.5 ttl pk-yrs) Types: Cigarettes Start date: 03/14/1982 Smokeless tobacco: Never Tobacco comments: since age 12 yrs Vaping Use Vaping status: Never Used Substance Use Topics Alcohol use: No Drug use: No MEDICATIONS: Prior to Admission Medications: vortioxetine (TRINTELLIX) 10 mg tablet, Take 10 mg by mouth once daily., Disp: , Rfl: , 05/15/2024 albuterol HFA (VENTOLIN HFA) 90 mcg/actuation inhaler, Inhale 2 Puffs as instructed every 4 hours as needed for wheezing/shortness of breath., Disp: , Rfl: , Taking As Needed ALPRAZolam (XANAX) 0.5 mg tablet, Take 0.5 mg by mouth twice daily., Disp: , Rfl: , 05/15/2024 zolpidem (AMBIEN) 10 mg Tab, Take 10 mg by mouth daily at bedtime., Disp: , Rfl: , Taking Current Facility-Administered Medications Medication Dose Route Frequency vancomycin 750 mg in D5W 250 mL Vial-Bag (VANCOCIN) 0.015 g/kg/dose INTRAVENOUS q 12 HR vancomycin dosing and monitoring per pharmacy OTHER As Directed ALPRAZolam 0.5 mg tab(s) (XANAX) 0.5 mg ORAL BID zolpidem 10 mg tab(s) (AMBIEN) 10 mg ORAL AT BEDTIME albuterol 2.5 mg /3 mL (0.083 %) 2.5 mg (PROVENTIL) 3 mL INHALATION q 4 H PRN vortioxetine 10 mg tab(s) (TRINTELLIX) 10 mg ORAL DAILY acetaminophen 650 mg tab(s) (TYLENOL) 650 mg ORAL q 6 H PRN ondansetron (PF) 4 mg injection (ZOFRAN) 4 mg INTRAVENOUS q 6 H PRN NaCl 0.9% iv flush bag 20 mL INTRAVENOUS PRN furosemide 40 mg injection (LASIX) 40 mg (more content not included)... Normal [facility] Comprehensive metabolic 2000 panelon 05-19-2024 Albumin [Mass/Vol] 4.5 g/dL Normal 3.9-4.9 [facility] Comment on above: Order Comment: Speci men Type: BLOOD SPECIMEN Ordering Facility: [facility] Address: [address] [place] [address] Performed By: #### 5 8410-2 #### [facility] CLIA [id number] [address] ALP [Catalytic activity/Vol] 277 U/L High 34-123 [facility] Comment on above: Order Comment: Speci men Type: BLOOD SPECIMEN Ordering Facility: [facility] Address: [address] [place] [address] Performed By: #### 5 8410-2 #### [facility] CLIA [id number] [address] ALT [Catalytic activity/Vol] 63 U/L High 7-38 [facility] Comment on above: Order Comment: Speci men Type: BLOOD SPECIMEN Ordering Facility: [facility] Address: [address] [place] [address] Performed By: #### 5 8410-2 #### [facility] CLIA [id number] [address] Anion gap [Moles/Vol] 11 mmol/L Normal 8-15 [facility] Comment on above: Order Comment: Speci men Type: BLOOD SPECIMEN Ordering Facility: [facility] Address: [facility] [place] [address] Performed By: #### 5 8410-2 #### [facility] CLIA [id number] [address] AST [Catalytic activity/Vol] 59 U/L High 13-35 [facility] Comment on above: Order Comment: Speci men Type: BLOOD SPECIMEN Ordering Facility: [facility] Address: [address] [place] [address] Performed By: #### 5 8410-2 #### [facility] CLIA [id number] [address] [place] Bilirubin [Mass/Vol] 0.5 mg/dL Normal 0.2-1.3 [facility] Comment on above: Order Comment: Speci men Type: BLOOD SPECIMEN Ordering Facility: [facility] Address: [address] [place] [address] Performed By: #### 5 8410-2 #### [facility] CLIA [id number] [address] [place] [address] [place] Calcium [Mass/Vol] 10.1 mg/dL Normal 8.5-10.2 [facility] Comment on above: Order Comment: Speci men Type: BLOOD SPECIMEN Ordering Facility: [facility] Address: [address] [place] [address] Performed By: #### 5 8410-2 #### [facility] CLIA [id number] [address] [place] [address] [place] Chloride [Moles/Vol] 96 mmol/L Low 98-107 [facility] Comment on above: Order Comment: Speci men Type: BLOOD SPECIMEN Ordering Facility: [facility] Address: [address] [place] [address] Performed By: #### 5 8410-2 #### [facility] CLIA [id number] [address] [place] [address] [place] CO2 [Moles/Vol] 30 mmol/L Normal 22-30 [facility] Comment on above: Order Comment: Speci men Type: BLOOD SPECIMEN Ordering Facility: [facility] Address: [address] [place] [address] Performed By: #### 5 8410-2 #### [facility] CLIA [id number] [address] [place] [address] [place] Creatinine [Mass/Vol] 1.04 mg/dL High 0.58-0.96 [facility] Comment on above: Order Comment: Speci men Type: BLOOD SPECIMEN Ordering Facility: [facility] Address: [address] [place] [address] Performed By: #### 5 8410-2 #### [facility] CLIA [id number] [address] [place] [address] [place] Creatinine and Glomerular filtration rate.predicted panel (S/P/Bld) 68 mL/min/1.73m??? Normal >=60 [facility] Comment on above: Order Comment: David horton Type: BLOOD SPECIMEN Ordering Facility: [facility] Address: [address] [place] [address] Result Comment: Sandie mated Glomerular Filtration Rate (eGFR) is calculated using the 2020 CKD-EPI creatinine equation. This equation utilizes serum creatinine, sex, and age as parameters. The creatinine assay has traceable calibration to isotope dilution-mass spectrometry. Refer to KDIGO guidelines for clinical interpretation. In patients with unstable renal function, e.g. those with acute kidney injury, the eGFR may not accurately reflect actual GFR. Performed By: #### 5 8410-2 #### [facility] CLIA [id number] [address] [place] [address] [place] Glucose [Mass/Vol] 79 mg/dL Normal 74-99 [facility] Comment on above: Order Comment: David horton Type: BLOOD SPECIMEN Ordering Facility: [facility] Address: [address] [place] [address] Result Comment: The [place] Diabetes Association (ADA) provides guidance for cutoff values for fasting glucose and random glucose. The ADA defines fasting as no caloric intake for at least 8 hours. Fasting plasma glucose results between 100 to 125 mg/dL indicate increased risk for diabetes (prediabetes). Fasting plasma glucose results greater than or equal to 126 mg/dL meet the criteria for diagnosis of diabetes. In the absence of unequivocal hyperglycemia, results should be confirmed by repeat testing. In a patient with classic symptoms of hyperglycemia or hyperglycemic crisis, random plasma glucose results greater than or equal to 200 mg/dL meet the criteria for diagnosis of diabetes. Reference: Standards of Medical Care in Diabetes 2016, [place] Diabetes Association. Diabetes Care. 2016.39(Suppl 1). Performed By: #### 5 8410-2 #### [facility] CLIA [id number] [address] [place] [id number] [place] Potassium [Moles/Vol] 4.1 mmol/L Normal 3.7-5.1 [facility] Comment on above: Order Comment: David horton Type: BLOOD SPECIMEN Ordering Facility: [facility] Address: [address] [place] [id number] Performed By: #### 5 8410-2 #### [facility] CLIA [id number] [address] [place] Protein [Mass/Vol] 8.0 g/dL Normal 6.3-8.0 [facility] Comment on above: Order Comment: Speci men Type: BLOOD SPECIMEN Ordering Facility: [facility] Address: [address] [place] [address] Performed By: #### 5 8410-2 #### [facility] CLIA [id number] [address] Sodium [Moles/Vol] 137 mmol/L Normal 136-144 [facility] Comment on above: Order Comment: Speci men Type: BLOOD SPECIMEN Ordering Facility: [facility] Address: [address] [place] [address] Performed By: #### 5 8410-2 #### [facility] CLIA [id number] [address] STATES [facility] Urea nitrogen [Mass/Vol] 20 mg/dL Normal 7-21 [facility] Comment on above: Order Comment: Speci men Type: BLOOD SPECIMEN Ordering Facility: [facility] Address: [address] [place] [address] Performed By: #### 5 8410-2 #### [facility] CLIA [id number] [address] OF [facility] NURSING PROGon 05-19-2024 NURSING PROG HNO ID: [id number] Author: CYNTHIA CADE RN Service: ? Author Type: Registered Nurse Type: Nursing Progress Note Filed: 05/19/2024 05:09 Note Text: Other: 0508 refused new IV start ,even though her IV sluggish. Patient educated about keeping old IV in . Doesn't want it removed at this time. Normal [facility] XR CHEST 2V FRONTAL/LATon XR CHEST 2V FRONTAL/LAT * * *Final Repor t* * * DATE OF EXAM: May 19 2024 9:56AM MDX 5291 - XR CHEST 2V FRONTAL/LAT / PROCEDURE REASON: Chest Pain * * * * Physician Interpretation * * * * EXAMINATION: CHEST RADIOGRAPH (2 VIEW FRONTAL and LATERAL) CLINICAL HISTORY: Chest Pain MQ: XC2_6 EXAM DATE/TIME: 05/19/2024 9:56 AM COMPARISON: 05/15/2024 05/15/2024 CT RESULT: Lines, tubes, and devices: Right cardiac pacer and lead. Lungs and pleura: Focal atelectasis in the right lung has resolved. No consolidation. No lung mass. No pleural effusion. No pneumothorax. Cardiomediastinal silhouette: Normal cardiomediastinal silhouette. Bones and soft tissues: Unremarkable. IMPRESSION: No acute radiographic abnormality. Assembly Department Supervisor: PSCB Transcribe Date/Time: May 19 2024 10:00A Dictated by : PATRICIA MCCARTNEY MD This examination was interpreted and the report reviewed and electronically signed by: PATRICIA MCCARTNEY MD on May 19 2024 10:03AM EST [id number] Normal [facility] CBC panel Auto (Bld)on 05-18 Erythrocyte distribution width (RBC) [Ratio] 14.2 % Normal 11.5-15.0 [facility] Comment on above: Order Comment: David horton Type: BLOOD SPECIMENOrdering Facility: [facility] Address: [address] [place] [address] Performed By: #### 5 8410-2 ####[facility] [id number] [address] [place] Hematocrit (Bld) [Volume fraction] 45.5 % Normal 36.0-46.0 [facility] Comment on above: Order Comment: David horton Type: BLOOD SPECIMENOrdering Facility: [facility] Address: [address] [place] [address] Performed By: #### 5 8410-2 ####[facility] [id number] [place] [address] [place] Hemoglobin (Bld) [Mass/Vol] 15.3 g/dL Normal 11.5-15.5 [facility] Comment on above: Order Comment: David horton Type: BLOOD SPECIMENOrdering Facility: [facility] Address: [address] [place] [address] Performed By: #### 5 8410-2 ####[facility] [id number] [address] MCH (RBC) [Entitic mass] 32.0 pg Normal 26.0-34.0 [facility] Comment on above: Order Comment: Speci men Type: BLOOD SPECIMENOrdering Facility: [facility] Address: [address] [place] [address] Performed By: #### 5 8410-2 ####[facility] [id number] [address] MCHC (RBC) [Mass/Vol] 33.6 g/dL Normal 30.5-36.0 [facility] Comment on above: Order Comment: Speci men Type: BLOOD SPECIMENOrdering Facility: [facility] Address: [address] [place] [address] Performed By: #### 5 8410-2 ####[facility] [id number] [address] MCV (RBC) [Entitic vol] 95.2 fL Normal 80.0-100.0 [facility] Comment on above: Order Comment: Speci men Type: BLOOD SPECIMENOrdering Facility: [facility] Address: [address] [place] [address] Performed By: #### 5 8410-2 ####[facility] [id number] [address] Nucleated RBC (Bld) [#/Vol] 10*3/uL Normal <0.01 [facility] Comment on above: Order Comment: Speci men Type: BLOOD SPECIMENOrdering Facility: [facility] Address: [address] [place] [address] Performed By: #### 5 8410-2 ####[facility] [id number] [address] Platelet mean volume (Bld) [Entitic vol] 10.7 fL Normal 9.0-12.7 [facility] Comment on above: Order Comment: Speci men Type: BLOOD SPECIMENOrdering Facility: [facility] Address: [address] [place] [address] Performed By: #### 5 8410-2 ####[facility] [id number] [address] Platelets (Bld) [#/Vol] 293 10*3/uL Normal 150-400 [facility] Comment on above: Order Comment: Speci men Type: BLOOD SPECIMENOrdering Facility: [facility] Address: [address] [place] [address] Performed By: #### 5 8410-2 ####[facility] [id number] [address] OF [place] RBC (Bld) [#/Vol] 4.78 10*6/uL Normal 3.90-5.20 [facility] Comment on above: Order Comment: Speci men Type: BLOOD SPECIMENOrdering Facility: [facility] Address: [address] [place] [address] Performed By: #### 5 8410-2 ####[facility] [id number] [address] WBC (Bld) [#/Vol] 9.76 10*3/uL Normal 3.70-11.00 [facility] Comment on above: Order Comment: Speci men Type: BLOOD SPECIMENOrdering Facility: [facility] Address: [address] [place] [address] Performed By: #### 5 8410-2 ####[facility] [id number] [address] Comprehensive metabolic 2000 panelon 05-18-2024 Albumin [Mass/Vol] 3.9 g/dL Normal 3.9-4.9 [facility] Comment on above: Order Comment: Speci men Type: BLOOD SPECIMENOrdering Facility: [facility] Address: [address] [place] [address] Performed By: #### 2 4323-8 ####[facility] [id number] [address] ALP [Catalytic activity/Vol] 249 U/L High 34-123 [facility] Comment on above: Order Comment: Speci men Type: BLOOD SPECIMENOrdering Facility: [facility] Address: [address] [place] [place] [id number] Performed By: #### 2 4323-8 ####[facility]ORYCLIA [id number] [place], [place] [id number] [place] [address] [place] [facility] ALT [Catalytic activity/Vol] 60 U/L High 7-38 [facility] Comment on above: Order Comment: Speci men Type: BLOOD SPECIMENOrdering Facility: [facility] Address: [address] [place] [address] Performed By: #### 2 4323-8 ####[facility] LABORATORYCLIA [id number] [place] [address] [place] Anion gap [Moles/Vol] 12 mmol/L Normal 8-15 [facility] Comment on above: Order Comment: Speci men Type: BLOOD SPECIMENOrdering Facility: [facility] Address: [address] [place] [address] Performed By: #### 2 4323-8 ####[facility] LABORATORYCLIA [id number] [place] [address] [place] AST [Catalytic activity/Vol] 41 U/L High 13-35 [facility] Comment on above: Order Comment: Speci men Type: BLOOD SPECIMENOrdering Facility: [facility] Address: [address] [place] [address] Performed By: #### 2 4323-8 ####[facility] LABORATORYCLIA [id number] [place] [address] [place] Bilirubin [Mass/Vol] 0.5 mg/dL Normal 0.2-1.3 [facility] Comment on above: Order Comment: Speci men Type: BLOOD SPECIMENOrdering Facility: [facility] Address: [address] [place] [address] Performed By: #### 2 4323-8 ####[facility] LABORATORYCLIA [id number] [address] [place] Calcium [Mass/Vol] 9.4 mg/dL Normal 8.5-10.2 [facility] Comment on above: Order Comment: Speci men Type: BLOOD SPECIMENOrdering Facility: [facility] Address: [address] [place] [address] Performed By: #### 2 4323-8 ####[facility] LABORATORYCLIA [id number] [address] [place] Chloride [Moles/Vol] 100 mmol/L Normal 98-107 [facility] Comment on above: Order Comment: Speci men Type: BLOOD SPECIMENOrdering Facility: [facility] Address: [address] [place] [address] Performed By: #### 2 4323-8 ####[facility] LABORATORYCLIA [id number] [place] [address] [place] CO2 [Moles/Vol] 22 mmol/L Normal 22-30 [facility] Comment on above: Order Comment: Speci men Type: BLOOD SPECIMENOrdering Facility: [facility] Address: [address] [place] [address] Performed By: #### 2 4323-8 ####[facility] LABORATORYCLIA [id number] [address] OF [facility] Creatinine [Mass/Vol] 1.00 mg/dL High 0.58-0.96 [facility] Comment on above: Order Comment: Speci men Type: BLOOD SPECIMENOrdering Facility: [facility] Address: [address] [place] [address] Performed By: #### 2 4323-8 ####[facility] LABORATORYCLIA [id number] [address] Creatinine and Glomerular filtration rate.predicted panel (S/P/Bld) 71 mL/min/1.73m??? Normal >=60 [facility] Comment on above: Order Comment: Speci men Type: BLOOD SPECIMENOrdering Facility: [facility] Address: [address] [place] [address] Result Comment: Sandie mated Glomerular Filtration Rate (eGFR) is calculated using the 2020 CKD-EPI creatinine equation. This equation utilizes serum creatinine, sex, and age as parameters. The creatinine assay has traceable calibration to isotope dilution-mass spectrometry. Refer to KDIGO guidelines for clinical interpretation. In patients with unstable renal function, e.g. those with acute kidney injury, the eGFR may not accurately reflect actual GFR. Performed By: #### 2 4323-8 ####[facility] LABORATORYCLIA [id number] [place] [address] [place] Glucose [Mass/Vol] 87 mg/dL Normal 74-99 [facility] Comment on above: Order Comment: David horton Type: BLOOD SPECIMENOrdering Facility: [facility] Address: [address] [place] [address] Result Comment: The [place] Diabetes Association (ADA) provides guidance for cutoff values for fasting glucose and random glucose. The ADA defines fasting as no caloric intake for at least 8 hours. Fasting plasma glucose results between 100 to 125 mg/dL indicate increased risk for diabetes (prediabetes). Fasting plasma glucose results greater than or equal to 126 mg/dL meet the criteria for diagnosis of diabetes. In the absence of unequivocal hyperglycemia, results should be confirmed by repeat testing. In a patient with classic symptoms of hyperglycemia or hyperglycemic crisis, random plasma glucose results greater than or equal to 200 mg/dL meet the criteria for diagnosis of diabetes. Reference: Standards of Medical Care in Diabetes 2016, [place] Diabetes Association. Diabetes Care. 2016.39(Suppl 1). Performed By: #### 2 4323-8 ####[facility] LABORATORYCLIA [id number] [place] [address] [place] Potassium [Moles/Vol] 4.7 mmol/L Normal 3.7-5.1 [facility] Comment on above: Order Comment: David horton Type: BLOOD SPECIMENOrdering Facility: [facility] Address: [address] [place] [address] Performed By: #### 2 4323-8 ####[facility] LABORATORYCLIA [id number] [place] [id number] [place] Protein [Mass/Vol] 6.9 g/dL Normal 6.3-8.0 [facility] Comment on above: Order Comment: David horton Type: BLOOD SPECIMENOrdering Facility: [facility] Address: [address] [place] [address] Performed By: #### 2 4323-8 ####[facility] LABORATORYCLIA [id number] [place] [address] [place] Sodium [Moles/Vol] 134 mmol/L Low 136-144 [facility] Comment on above: Order Comment: Speci men Type: BLOOD SPECIMENOrdering Facility: [facility] Address: [address] [place] [address] Performed By: #### 2 4323-8 ####[facility] LABORATORYCLIA [id number] [place] [address] [place] Urea nitrogen [Mass/Vol] 17 mg/dL Normal 7-21 [facility] Comment on above: Order Comment: Speci men Type: BLOOD SPECIMENOrdering Facility: [facility] Address: [address] [place] [address] Performed By: #### 2 4323-8 ####[facility] LABORATORYCLIA [id number] [place] [address] [place] CBC panel Auto (Bld)on 05-17 Erythrocyte distribution width (RBC) [Ratio] 14.3 % Normal 11.5-15.0 [facility] Comment on above: Order Comment: Speci men Type: BLOOD SPECIMENOrdering Facility: [facility] Address: [address] [place] [address] Performed By: #### 5 8410-2 ####[facility] LABORATORYCLIA [id number] [place] [address] [place] Hematocrit (Bld) [Volume fraction] 42.1 % Normal 36.0-46.0 [facility] Comment on above: Order Comment: Speci men Type: BLOOD SPECIMENOrdering Facility: [facility] Address: [address] [place] [address] Performed By: #### 5 8410-2 ####[facility] LABORATORYCLIA [id number] [place] [address] [place] Hemoglobin (Bld) [Mass/Vol] 13.7 g/dL Normal 11.5-15.5 [facility] Comment on above: Order Comment: Speci men Type: BLOOD SPECIMENOrdering Facility: [facility] Address: [address] [place] [address] Performed By: #### 5 8410-2 ####[facility] LABORATORYCLIA [id number] [address] MCH (RBC) [Entitic mass] 31.7 pg Normal 26.0-34.0 [facility] Comment on above: Order Comment: Speci men Type: BLOOD SPECIMENOrdering Facility: [facility] Address: [address] [place] [address] Performed By: #### 5 8410-2 ####[facility] LABORATORYCLIA [id number] [address] [place] MCHC (RBC) [Mass/Vol] 32.5 g/dL Normal 30.5-36.0 [facility] Comment on above: Order Comment: Speci men Type: BLOOD SPECIMENOrdering Facility: [facility] Address: [address] [place] [address] Performed By: #### 5 8410-2 ####[facility] LABORATORYCLIA [id number] [address] [place] MCV (RBC) [Entitic vol] 97.5 fL Normal 80.0-100.0 [facility] Comment on above: Order Comment: Speci men Type: BLOOD SPECIMENOrdering Facility: [facility] Address: [address] [place] [address] Performed By: #### 5 8410-2 ####[facility]ORATORYCLIA [id number] [address] [place] Nucleated RBC (Bld) [#/Vol] 10*3/uL Normal <0.01 [facility] Comment on above: Order Comment: Speci men Type: BLOOD SPECIMENOrdering Facility: [facility] Address: [address] [place] [address] Performed By: #### 5 8410-2 ####[facility] LABORATORYCLIA [id number] [address] [place] Platelet mean volume (Bld) [Entitic vol] 10.5 fL Normal 9.0-12.7 [facility] Comment on above: Order Comment: Speci men Type: BLOOD SPECIMENOrdering Facility: [facility] Address: [address] [place] [address] Performed By: #### 5 8410-2 ####[facility] LABORATORYCLIA [id number] [place] [address] [place] Platelets (Bld) [#/Vol] 265 10*3/uL Normal 150-400 [facility] Comment on above: Order Comment: Speci men Type: BLOOD SPECIMENOrdering Facility: [facility] Address: [address] [place] [address] Performed By: #### 5 8410-2 ####[facility] LABORATORYCLIA [id number] [address] [place] RBC (Bld) [#/Vol] 4.32 10*6/uL Normal 3.90-5.20 [facility] Comment on above: Order Comment: Speci men Type: BLOOD SPECIMENOrdering Facility: [facility] Address: [address] [place] [address] Performed By: #### 5 8410-2 ####[facility] LABORATORYCLIA [id number] [place] [address] [place] WBC (Bld) [#/Vol] 9.33 10*3/uL Normal 3.70-11.00 [facility] Comment on above: Order Comment: Speci men Type: BLOOD SPECIMENOrdering Facility: [facility] Address: [address] [place] [address] Performed By: #### 5 8410-2 ####[facility] LABORATORYCLIA [id number] [place] [id number] [facility] CONSULTon 05-17-2024 CONSULT HNO ID: [id number] Author: JOSIE SRINIVASAN APRN.[employer] Service: Wound/Ostomy Author Type: Nurse Practitioner Type: Consults Filed: 05/17/2024 13:00 Note Text: WOUND CARE SERVICE CONSULT NOTE SERVICE DATE: 05/17/2024 SERVICE TIME: 1249 Woud Consult (From admission, onward) Start Ordered 05/16/24 1715 Wound Care Consult ONCE Electronically Signed By: Dex Sutherland MD [ ] 05/16/[address] Dex Sutherland for an opinion regarding left leg. My final recommendations will be communicated back to requesting provider by way of shared medical record. Subjective HISTORY OF PRESENT ILLNESS: Michelle Mitchell is a 43 year old female is being seen with the admitting diagnosis of abscess of left leg. Presenting wound information: Pt seen and evaluated at bedside. Wound HPI provided by pt and medical record. Pt with h/o HOCM (s/p ICD in 2006), pericarditis, GERD, PE (2016), endometrial/ovarian epithelial CA, and breast CA s/p left mastectomy presented to hospital with c/o left leg abscess. Pt reports that the abscess started on and went to an OSH ER where she received a prescription for Bactrim; however, the abscess continued to worsen becoming more painful and swollen. She states that she is unsure of what actually initially caused the abscess and denies any known recent trauma to her LLE. She reports that the wound looks much better today and that her pain has also improved. REVIEW OF SYSTEMS: PAIN ASSESSMENT: See HPI GENERAL: No weight loss, malaise or fevers SKIN: See HPI PAST MEDICAL HISTORY Diagnosis Date Breast cancer (HCC) Age 17 treated with radiation, lumpectomy and masectomy CIS (carcinoma in situ of cervix) Colon polyp 07/2015 Congestive heart failure (HCC) HOCM DVT (deep venous thrombosis) (HCC) Endometrial cancer (HCC) treated with ablation Gastroesophageal reflux disease 08/17/2017 GERD (gastroesophageal reflux disease) Hypertr obst cardiomyop ICD (implantable cardiac defibrillator) battery depletion Kidney stone Migraine Ovarian epithelial cancer (HCC) This diagnosis unlikely as both ovaries present 05/09/2018 laparoscopy Pericarditis PUD (peptic ulcer disease) Pulmonary embolism (HCC) 11/2016 Vaginal Pap smear with ASC-US 12/2016 PAST SURGICAL HISTORY Procedure Laterality Date ANES PERMANENT TRANSVENOUS PACEMAKER INSERTION 2006 ICD implant, [facility] ANESTHESIA TUBAL LIGATION/TRANSECTION APPENDECTOMY 05/05/2014 , lap BREAST LUMPECTOMY HX Left 1997 with radiation CHOLECYSTECTOMY HX 08/2010 lap COLONOSCOPY AND POLYPECTOMY 08/07/2015 CONIZATION CERVIX W/WO DANDC RPR KNIFE/LASER CIS EGD 08/25/2017 Tabbaa- normal ENDOMETRIAL ABLATION WITH US GUIDANCE for abnormal uterine bleeding EXCISION OF CYST 08/23/2017 Dr. Velasco Excision of sebaceous cyst IMPLANTABLE CARDIAC DEFIB ICD 02/2009, 10/19/2016 LAPAROSCOPY DIAGNOSTIC 07/21/2015 Lysis of adhesions, MIDLINE INSERTION/CONSULT 01/18/2017 PAST SURGICAL HISTORY OF 05/24/2014 Laparoscopy, Social History Tobacco Use Smoking status: Every Day Current packs/day: 0.25 Average packs/day: 0.3 packs/day for 42.2 years (10.5 ttl pk-yrs) Types: Cigarettes Start date: 03/14/1982 Smokeless tobacco: Never Tobacco comments: since age 12 yrs Vaping Use Vaping status: Never Used Substance Use Topics Alcohol use: No Drug use: No FAMILY HISTORY Problem Relation Age of Onset Heart Mother heart valve replaced, was in a car accident in early age Breast Cancer Mother dx age 50 DVT Mother Heart Father IHSS, CHF, HOCM other (Paternal half-sister) Sister Paternal half-sister; on transplant list other (HOCM) Sister Heart Paternal Grandmother stroke, at age 43 Heart Paternal Grandfather at age 45 Heart Paternal Aunt at age 27 Heart Paternal Aunt at age 29 Cancer Sister 20 Brain Breast Cancer Sister 28 Colon Cancer Sister 26 DVT Sister Heart Sister Reported HOCM, heart transplant at 34 MEDICATIONS: Current Facility-Administered Medications Medication Dose Route Frequency vancomycin 750 mg in D5W 250 mL Vial-Bag (VANCOCIN) 0.015 g/kg/dose INTRAVENOUS q 12 HR vancomycin dosing and monitoring per pharmacy OTHER As Directed ALPRAZolam 0.5 mg tab(s) (XANAX) 0.5 mg ORAL BID zolpidem 10 mg tab(s) (AMBIEN) 10 mg ORAL AT BEDTIME albuterol 2.5 mg /3 mL (0.083 %) 2.5 mg (PROVENTIL) 3 mL INHALATION q 4 H PRN vortioxetine 10 mg tab(s) (TRINTELLIX) 10 mg ORAL DAILY acetaminophen 650 mg tab(s) (TYLENOL) 650 mg ORAL q 6 H PRN HYDROmorphone 0.5 mg injection (DILAUDID) 0.5 mg INTRAVENOUS q 6 H PRN ondansetron (PF) 4 mg injection (ZOFRAN) 4 mg INTRAVENOUS q 6 H PRN piperacillin-tazobactam iv piggyback 3.375 g in dextrose (iso-osmotic) 50 mL (ZOSYN) 3.375 g INTRAVENOUS q 6 H NaCl 0.9% iv flush bag 20 mL INTRAVENOUS (more content not included)... [facility] CONSULT PROGon 05-17-2024 CONSULT PROG HNO ID: [id number] Author: SALLIE WILKERSON RPh Service: Pharmacy Author Type: Pharmacist Type: Consult Progress Note Filed: 05/17/2024 14:55 Note Text: PHARMACY VANCOMYCIN DOSING NOTE Patient Name: Michelle Mitchell Admission Date: 05/15/2024 Date of Consult: 05/17/2024 Time of Consult: 2:53 PM Indication: Skin/soft tissue infection Goal Range: 10-20 mcg/mL RECOMMENDATIONS/PLAN: Pharmacy consulted for vancomycin dosing for Michelle Mitchell, a 43 year old female. 1. Patient is currently ordered Vancomycin 750 mg IV q12h. Today is day 3 of therapy. 2. The most recent vancomycin level was 14.7 mcg/mL drawn at 1240 on 05/17/2024. This is a 10.5 hour level on the 3rd day of therapy. 3. The present dose of vancomycin is the recommended dosage for this patient at this time. Continue therapy as prescribed. 4. The next vancomycin level will be ordered for 05/24/2024 unless clinically indicated sooner. (Pharmacy will order) We will follow patient renal function, vancomycin levels and doses with you during the course of therapy. Additional recommendations will appear in follow up notes. If you have any questions, please contact pharmacy at [phone]. Age: [age] year old Allergies: ALLERGIES Allergen Reactions Prozac [Fluoxetine * Other: See Comments suicidal ideations Ativan [Lorazepam] Vomiting Azithromycin Intolerance [place] Anaphylaxis [place] Anaphylaxis pickles Fish Anaphylaxis Levofloxacin In D5w Swelling, Itching IV site swollen, ceased after d/c, redness and itching at site Neurontin [Gabapent* Mental Status Change Shellfish Anaphylaxis Tigan [Trimethobenz* Anaphylaxis Ultram [Tramadol] Hives Pt states she also pukes a lot Vicodin [Hydrocodon* Shortness of Breath pt states that she is able to take percocet Zofran [Ondansetron* Hives, Swelling, GI Upset Last 3 Encounter Wt Readings: Date: Wt: 05/15/2024 54.5 kg (120 lb 2.4 oz) 04/25/2021 54.4 kg (120 lb) 04/24/2021 59 kg (130 lb) Last 1 Encounter Ht Readings: Date: Ht: 05/15/2024 160 cm (5' 3) CrCl: 68.3 mL/min Temp (24hrs), Av.3 ?C (97.3 ?F), Min:36.2 ?C (97.1 ?F), Max:36.5 ?C (97.7 ?F) - Current Temp: 36.5 ?C (97.7 ?F) Labs BUN (mg/dL) Date Value 05/17/2024 12 05/16/2024 12 05/15/2024 11 Creatinine (mg/dL) Date Value 05/17/2024 0.87 05/16/2024 0.82 05/15/2024 0.89 WBC (k/uL) Date Value 05/17/2024 9.33 05/16/2024 6.77 05/15/2024 9.30 Vancomycin Levels: Vancomycin (ug/mL) Date/Time Value 05/17/2024 1240 14.7 Sallie Wilkerson [facility] Normal [facility] Comprehensive metabolic 2000 panelon 05-17-2024 Albumin [Mass/Vol] 4.0 g/dL Normal 3.9-4.9 [facility] Comment on above: Order Comment: Speci men Type: BLOOD SPECIMENOrdering Facility: [facility] Address: [address] [place] [address] Performed By: #### 2 4323-8 ####[facility] LABORATORYCLIA [id number] [place] [address] [place] [facility] ALP [Catalytic activity/Vol] 249 U/L High 34-123 [facility] Comment on above: Order Comment: Speci men Type: BLOOD SPECIMENOrdering Facility: [facility] Address: [address] [place] [address] Performed By: #### 2 4323-8 ####[facility] LABORATORYCLIA [id number] [address] [place] ALT [Catalytic activity/Vol] 58 U/L High 7-38 [facility] Comment on above: Order Comment: Speci men Type: BLOOD SPECIMENOrdering Facility: [facility] Address: [address] [place] [address] Performed By: #### 2 4323-8 ####[facility] LABORATORYCLIA [id number] [place] [address] [place] Anion gap [Moles/Vol] 10 mmol/L Normal 8-15 [facility] Comment on above: Order Comment: Speci men Type: BLOOD SPECIMENOrdering Facility: [facility] Address: [address] [place] [address] Performed By: #### 2 4323-8 ####[facility] LABORATORYCLIA [id number] [place] [address] [place] AST [Catalytic activity/Vol] 47 U/L High 13-35 [facility] Comment on above: Order Comment: Speci men Type: BLOOD SPECIMENOrdering Facility: [facility] Address: [address] [place] [address] Performed By: #### 2 4323-8 ####[facility] LABORATORYCLIA [id number] [place] [address] [place] Bilirubin [Mass/Vol] 0.6 mg/dL Normal 0.2-1.3 [facility] Comment on above: Order Comment: Speci men Type: BLOOD SPECIMENOrdering Facility: [facility] Address: [address] [place] [address] Performed By: #### 2 4323-8 ####[facility] LABORATORYCLIA [id number] [address] [place] Calcium [Mass/Vol] 9.1 mg/dL Normal 8.5-10.2 [facility] Comment on above: Order Comment: Speci men Type: BLOOD SPECIMENOrdering Facility: [facility] Address: [address] [place] [address] Performed By: #### 2 4323-8 ####[facility] LABORATORYCLIA [id number] [place] [address] [place] Chloride [Moles/Vol] 99 mmol/L Normal 98-107 [facility] Comment on above: Order Comment: Speci men Type: BLOOD SPECIMENOrdering Facility: [facility] Address: [address] [place] [address] Performed By: #### 2 4323-8 ####[facility] LABORATORYCLIA [id number] [place] [id number] [place] CO2 [Moles/Vol] 25 mmol/L Normal 22-30 [facility] Comment on above: Order Comment: Speci men Type: BLOOD SPECIMENOrdering Facility: [facility] Address: [address] [place] [address] Performed By: #### 2 4323-8 ####[facility] LABORATORYCLIA [id number] [address] Creatinine [Mass/Vol] 0.87 mg/dL Normal 0.58-0.96 [facility] Comment on above: Order Comment: Speci men Type: BLOOD SPECIMENOrdering Facility: [facility] Address: [address] [place] [address] Performed By: #### 2 4323-8 ####[facility] LABORATORYCLIA [id number] [address] Creatinine and Glomerular filtration rate.predicted panel (S/P/Bld) 84 mL/min/1.73m??? Normal >=60 [facility] Comment on above: Order Comment: Speci men Type: BLOOD SPECIMENOrdering Facility: [facility] Address: [address] [place] [address] Result Comment: Sandie mated Glomerular Filtration Rate (eGFR) is calculated using the 2020 CKD-EPI creatinine equation. This equation utilizes serum creatinine, sex, and age as parameters. The creatinine assay has traceable calibration to isotope dilution-mass spectrometry. Refer to KDIGO guidelines for clinical interpretation. In patients with unstable renal function, e.g. those with acute kidney injury, the eGFR may not accurately reflect actual GFR. Performed By: #### 2 4323-8 ####[facility] LABORATORYCLIA [id number] [place] [id number] [place] [facility] Glucose [Mass/Vol] 97 mg/dL Normal 74-99 [facility] Comment on above: Order Comment: Kianai men Type: BLOOD SPECIMENOrdering Facility: [facility] Address: [address] [place] [address] Result Comment: The [place] Diabetes Association (ADA) provides guidance for cutoff values for fasting glucose and random glucose. The ADA defines fasting as no caloric intake for at least 8 hours. Fasting plasma glucose results between 100 to 125 mg/dL indicate increased risk for diabetes (prediabetes). Fasting plasma glucose results greater than or equal to 126 mg/dL meet the criteria for diagnosis of diabetes. In the absence of unequivocal hyperglycemia, results should be confirmed by repeat testing. In a patient with classic symptoms of hyperglycemia or hyperglycemic crisis, random plasma glucose results greater than or equal to 200 mg/dL meet the criteria for diagnosis of diabetes. Reference: Standards of Medical Care in Diabetes 2016, [place] [employer]. Diabetes Care. 2016.39(Suppl 1). Performed By: #### 2 4323-8 ####[facility] LABORATORYCLIA [id number] [place] [address] [place] Potassium [Moles/Vol] 4.6 mmol/L Normal 3.7-5.1 [facility] Comment on above: Order Comment: David horton Type: BLOOD SPECIMENOrdering Facility: [facility] Address: [address] [place] [address] Performed By: #### 2 4323-8 ####[facility] LABORATORYCLIA [id number] [place] [address] [place] Protein [Mass/Vol] 6.7 g/dL Normal 6.3-8.0 [facility] Comment on above: Order Comment: David horton Type: BLOOD SPECIMENOrdering Facility: [facility] Address: [address] [place] [address] Performed By: #### 2 4323-8 ####[facility] LABORATORYCLIA [id number] [place] [address] [place] Sodium [Moles/Vol] 134 mmol/L Low 136-144 [facility] Comment on above: Order Comment: David horton Type: BLOOD SPECIMENOrdering Facility: [facility] Address: [address] [place] [address] Performed By: #### 2 4323-8 ####[facility] LABORATORYCLIA [id number] [place] [address] [place] Urea nitrogen [Mass/Vol] 12 mg/dL Normal 7-21 [facility] Comment on above: Order Comment: Speci men Type: BLOOD SPECIMENOrdering Facility: [facility] Address: [address] [place] [address] Performed By: #### 2 4323-8 ####[facility] LABORATORYCLIA [id number] [place] [address] [place] Vancomycin Bronte SerPl-mCncon 05-17-2024 Vancomycin random [Mass/Vol] 14.7 ug/mL Normal 10.0-20.0 [facility] Comment on above: Order Comment: Speci men Type: BLOOD SPECIMEN [facility]: [facility] Address: [address] [place] [address] Result Comment: Refe rence ranges and high/low indicator flags are provided as general guidelines only. The treating physician must determine appropriate target levels/dosing based on the specific clinical situation. Performed By: #### 5 8410-2 #### [facility] CLIA [id number] [address] [place] CBC panel Auto (Bld)on 05-16 Erythrocyte distribution width (RBC) [Ratio] 14.5 % Normal 11.5-15.0 [facility] Comment on above: Order Comment: Speci men Type: BLOOD SPECIMENOrdering Facility: [facility] Address: [address] [place] [address] Performed By: #### 5 8410-2 ####[facility]ORYCLIA [id number] [address] [place] Hematocrit (Bld) [Volume fraction] 37.8 % Normal 36.0-46.0 [facility] Comment on above: Order Comment: Speci men Type: BLOOD SPECIMENOrdering Facility: [facility] Address: [address] [place] [address] Performed By: #### 5 8410-2 ####[facility]ATORYCLIA [id number] [address] [place] Hemoglobin (Bld) [Mass/Vol] 12.6 g/dL Normal 11.5-15.5 [facility] Comment on above: Order Comment: Speci men Type: BLOOD SPECIMENOrdering Facility: [facility] Address: [address] [place] [address] Performed By: #### 5 8410-2 ####[facility]ATORYCLIA [id number] [address] MCH (RBC) [Entitic mass] 32.2 pg Normal 26.0-34.0 [facility] Comment on above: Order Comment: Speci men Type: BLOOD SPECIMENOrdering Facility: [facility] Address: [address] [place] [address] Performed By: #### 5 8410-2 ####[facility]ATORYCLIA [id number] [address] [place] MCHC (RBC) [Mass/Vol] 33.3 g/dL Normal 30.5-36.0 [facility] Comment on above: Order Comment: Speci men Type: BLOOD SPECIMENOrdering Facility: [facility] Address: [address] [place] [address] Performed By: #### 5 8410-2 ####[facility]ATORYCLIA [id number] [address] MCV (RBC) [Entitic vol] 96.7 fL Normal 80.0-100.0 [facility] Comment on above: Order Comment: Speci men Type: BLOOD SPECIMENOrdering Facility: [facility] Address: [address] [place] [address] Performed By: #### 5 8410-2 ####[facility]ATORYCLIA [id number] [address] Nucleated RBC (Bld) [#/Vol] 10*3/uL Normal <0.01 [facility] Comment on above: Order Comment: Speci men Type: BLOOD SPECIMENOrdering Facility: [facility] Address: [address] [place] [address] Performed By: #### 5 8410-2 ####[facility]ATORYCLIA [id number] [address] Platelet mean volume (Bld) [Entitic vol] 10.5 fL Normal 9.0-12.7 [facility] Comment on above: Order Comment: Speci men Type: BLOOD SPECIMENOrdering Facility: [facility] Address: [address] [place] [address] Performed By: #### 5 8410-2 ####[facility]ATORYCLIA [id number] [address] Platelets (Bld) [#/Vol] 234 10*3/uL Normal 150-400 [facility] Comment on above: Order Comment: Speci men Type: BLOOD SPECIMENOrdering Facility: [facility] Address: [address] [place] [address] Performed By: #### 5 8410-2 ####[facility] LABORATORYCLIA [id number] [place] [address] [facility] [place] RBC (Bld) [#/Vol] 3.91 10*6/uL Normal 3.90-5.20 [facility] Comment on above: Order Comment: Speci men Type: BLOOD SPECIMENOrdering Facility: [facility] Address: [address] [place] [address] Performed By: #### 5 8410-2 ####[facility]ATORYCLIA [id number] [address] [place] WBC (Bld) [#/Vol] 6.77 10*3/uL Normal 3.70-11.00 [facility] Comment on above: Order Comment: Speci men Type: BLOOD SPECIMENOrdering Facility: [facility] Address: [address] [place] [address] Performed By: #### 5 8410-2 ####[facility]ATORYCLIA [id number] [address] CONSULT PROGon 05-16-2024 CONSULT PROG HNO ID: [id number] Author: VA SINGH RPh Service: Pharmacy Author Type: Pharmacist Type: Consult Progress Note Filed: 05/16/2024 08:54 Note Text: PHARMACY VANCOMYCIN DOSING NOTE Patient Name: Michelle Mitchell Admission Date: 05/15/2024 Date of Consult: 05/16/2024 Time of Consult: 8:51 AM Indication: Skin/soft tissue infection Goal Range: 10-20 mcg/mL RECOMMENDATIONS/PLAN: Pharmacy consulted for vancomycin dosing for Michelle Mitchell, a 43 year old female. 1. Patient is currently ordered Vancomycin 750 mg IV q12h. Today is day 2 of therapy. 2. No vancomycin level has been drawn for this dosing regimen. 3. The present dose of vancomycin is the recommended dosage for this patient at this time. Continue therapy as prescribed. 4. The next vancomycin level has been ordered for 05/17/24. (Completed) We will follow patient renal function, vancomycin levels and doses with you during the course of therapy. Additional recommendations will appear in follow up notes. If you have any questions, please contact pharmacy at [phone]. Age: [age] year old Allergies: ALLERGIES Allergen Reactions Prozac [Fluoxetine * Other: See Comments suicidal ideations Ativan [Lorazepam] Vomiting Azithromycin Intolerance [place] Anaphylaxis [place] Anaphylaxis pickles Fish Anaphylaxis Levofloxacin In D5w Swelling, Itching IV site swollen, ceased after d/c, redness and itching at site Neurontin [Gabapent* Mental Status Change Shellfish Anaphylaxis Tigan [Trimethobenz* Anaphylaxis Ultram [Tramadol] Hives Pt states she also pukes a lot Vicodin [Hydrocodon* Shortness of Breath pt states that she is able to take percocet Zofran [Ondansetron* Hives, Swelling, GI Upset Last 3 Encounter Wt Readings: Date: Wt: 05/15/2024 54.6 kg (120 lb 5.9 oz) 04/25/2021 54.4 kg (120 lb) 04/24/2021 59 kg (130 lb) Last 1 Encounter Ht Readings: Date: Ht: 05/15/2024 160 cm (5' 3) CrCl: 72.4 mL/min Temp (24hrs), Av.4 ?C (97.6 ?F), Min:36 ?C (96.8 ?F), Max:36.8 ?C (98.2 ?F) - Current Temp: 36 ?C (96.8 ?F) Labs BUN (mg/dL) Date Value 05/16/2024 12 05/15/2024 11 04/26/2021 11 Creatinine (mg/dL) Date Value 05/16/2024 0.82 05/15/2024 0.89 04/26/2021 0.73 WBC (k/uL) Date Value 05/16/2024 6.77 05/15/2024 9.30 04/26/2021 7.40 Vancomycin Levels: No results found for: ALICIA Cordovaeliecer Singh, [facility] Normal [facility] Comprehensive metabolic 2000 panelon 05-16-2024 Albumin [Mass/Vol] 3.6 g/dL Low 3.9-4.9 [facility] Comment on above: Order Comment: Speci men Type: BLOOD SPECIMEN [facility] Address: [address] [place] [address] Performed By: #### 5 8410-2 #### [facility] CLIA [id number] [address] STATES [facility] ALP [Catalytic activity/Vol] 212 U/L High 34-123 [facility] Comment on above: Order Comment: Speci men Type: BLOOD SPECIMEN [facility] Address: [address] [place] [address] Performed By: #### 5 8410-2 #### [facility] CLIA [id number] [address] STATES [facility] ALT [Catalytic activity/Vol] 49 U/L High 7-38 [facility] Comment on above: Order Comment: Speci men Type: BLOOD SPECIMEN [facility] Address: [address] [place] [address] Performed By: #### 5 8410-2 #### [facility] CLIA [id number] [address] [place] [address] [place] Anion gap [Moles/Vol] 10 mmol/L Normal 8-15 [facility] Comment on above: Order Comment: Speci men Type: BLOOD SPECIMEN [facility] Address: [address] [place] [address] Performed By: #### 5 8410-2 #### [facility] CLIA [id number] [address] [place] AST [Catalytic activity/Vol] 57 U/L High 13-35 [facility] Comment on above: Order Comment: Speci men Type: BLOOD SPECIMEN [facility] Address: [address] [place] [address] Performed By: #### 5 8410-2 #### [facility] CLIA [id number] [address] [place] [address] [place] Bilirubin [Mass/Vol] 0.7 mg/dL Normal 0.2-1.3 [facility] Comment on above: Order Comment: Speci men Type: BLOOD SPECIMEN [facility] Address: [address] [place] [address] Performed By: #### 5 8410-2 #### [facility] CLIA [id number] [address] [place] [address] [place] Calcium [Mass/Vol] 8.9 mg/dL Normal 8.5-10.2 [facility] Comment on above: Order Comment: Speci men Type: BLOOD SPECIMEN [facility] Address: [address] [place] [address] Performed By: #### 5 8410-2 #### [facility] CLIA [id number] [address] [place] [address] [place] Chloride [Moles/Vol] 105 mmol/L Normal 98-107 [facility] Comment on above: Order Comment: Speci men Type: BLOOD SPECIMEN [facility] Address: [address] [place] [address] Performed By: #### 5 8410-2 #### [facility] CLIA [id number] [address] [place] [address] [place] CO2 [Moles/Vol] 22 mmol/L Normal 22-30 [facility] Comment on above: Order Comment: Speci men Type: BLOOD SPECIMEN [facility] Address: [address] [place] [address] Performed By: #### 5 8410-2 #### [facility] CLIA [id number] [address] [place] [address] [place] Creatinine [Mass/Vol] 0.82 mg/dL Normal 0.58-0.96 [facility] Comment on above: Order Comment: Speci men Type: BLOOD SPECIMEN [facility] Address: [address] [place] [address] Performed By: #### 5 8410-2 #### [facility] CLIA [id number] [address] Creatinine and Glomerular filtration rate.predicted panel (S/P/Bld) 91 mL/min/1.73m??? Normal >=60 [facility] Comment on above: Order Comment: David horton Type: BLOOD SPECIMEN [facility] Address: [address] [place] [address] Result Comment: Sandie mated Glomerular Filtration Rate (eGFR) is calculated using the 2020 CKD-EPI creatinine equation. This equation utilizes serum creatinine, sex, and age as parameters. The creatinine assay has traceable calibration to isotope dilution-mass spectrometry. Refer to KDIGO guidelines for clinical interpretation. In patients with unstable renal function, e.g. those with acute kidney injury, the eGFR may not accurately reflect actual GFR. Performed By: #### 5 8410-2 #### [facility] CLIA [id number] [address] [place] [address] [place] Glucose [Mass/Vol] 79 mg/dL Normal 74-99 [facility] Comment on above: Order Comment: David horton Type: BLOOD SPECIMEN [facility] Address: [address] [place] [address] Result Comment: The [place] Diabetes Association (ADA) provides guidance for cutoff values for fasting glucose and random glucose. The ADA defines fasting as no caloric intake for at least 8 hours. Fasting plasma glucose results between 100 to 125 mg/dL indicate increased risk for diabetes (prediabetes). Fasting plasma glucose results greater than or equal to 126 mg/dL meet the criteria for diagnosis of diabetes. In the absence of unequivocal hyperglycemia, results should be confirmed by repeat testing. In a patient with classic symptoms of hyperglycemia or hyperglycemic crisis, random plasma glucose results greater than or equal to 200 mg/dL meet the criteria for diagnosis of diabetes. Reference: Standards of Medical Care in Diabetes 2016, [place] [employer] Association. Diabetes Care. 2016.39(Suppl 1). Performed By: #### 5 8410-2 #### [facility] CLIA [id number] [address] [place] [address] [place] [facility] Potassium [Moles/Vol] 4.4 mmol/L Normal 3.7-5.1 [facility] Comment on above: Order Comment: Speci men Type: BLOOD SPECIMEN [facility] Address: [address] [place] [address] Performed By: #### 5 8410-2 #### [facility] CLIA [id number] [address] Protein [Mass/Vol] 6.0 g/dL Low 6.3-8.0 [facility] Comment on above: Order Comment: Speci men Type: BLOOD SPECIMEN [facility] Address: [address] [place] [address] Performed By: #### 5 8410-2 #### [facility] CLIA [id number] [address] Sodium [Moles/Vol] 137 mmol/L Normal 136-144 [facility] Comment on above: Order Comment: Speci men Type: BLOOD SPECIMEN [facility] Address: [address] [place] [address] Performed By: #### 5 8410-2 #### [facility] CLIA [id number] [address] Urea nitrogen [Mass/Vol] 12 mg/dL Normal 7-21 [facility] Comment on above: Order Comment: Speci men Type: BLOOD SPECIMEN [facility] Address: [address] [place] [address] Performed By: #### 5 8410-2 #### [facility] CLIA [id number] [address] HIGH SENSITIVITY TROPONIN To n 05-16-2024 Troponin T.cardiac High sensitivity method [Mass/Vol] 25 ng/L High <12 [facility] Comment on above: Order Comment: Speci men Type: BLOOD SPECIMEN [facility] Address: [address] [place] [address] Performed By: #### 5 8410-2 #### [facility] CLIA [id number] [address] [place] ALLIED HEALTHon 05-15-2024 ALLIED HEALTH HNO ID: [id number] Author: ABELARDO SINGH CT Service: Radiology Author Type: Technologist Type: [facility] Filed: 05/15/2024 12:02 Note Text: Radiology Service Progress Note PATIENT NAME: Michelle Mitchell DATE OF SERVICE: May 15, 2024 TIME: 12:01 PM PATIENT IDENTITY VERIFICATION COMPLETED USING TWO (2) IDENTIFIERS: Name and Date of confirmed by patient verbally. FALL SCREENING: Has the patient had 2 falls in the last year or 1 fall with injury or currently using an Ambulatory Assistive Device (Walker, Cane, Wheelchair, Crutches, etc.)? Emergency Room Patient: Screened in ED PATIENT GENDER DATA: Assigned female at . status: : No status: NO. PATIENT RELEVANT IMPLANT DATA REVIEWED: Not Applicable PATIENT PRESENTS WITH AN IMPLANTABLE OR ATTACHED REHABILITATION TECH: No RADIOLOGY DEPARTMENT: General X-ray: Exam(s) Completed: Chest X-Ray PERIPHERAL IV DATA: Not applicable SIGNED BY: MIRACLE Gomez May 15, 2024 12:01 PM [facility] HNO ID: [id number] Author: DOMINGUEZ BEGUM RT(R) Service: Radiology Author Type: Technologist Type: [facility] Filed: 05/15/2024 11:22 Note Text: MEDIC @ BS GETTING LABS, IMAGING ORDER OUTSTANDING [facility] Bacteria Bld Culton 05-16-19 25 Bacteria identified Cx Nom (Bld) CULTURE, BLOOD: No growth 5 days GRAM STAIN: This blood culture had less than the recommended 8 ml per bottle, which could decrease the sensitivity of the test. [facility] Comment on above: Performed By: #### 6 00-7 ####[facility] LABCLIA [id number] [address] [address] [place] Bacteria identified Cx Nom (Bld) CULTURE, BLOOD: No growth 5 days GRAM STAIN: This blood culture had less than the recommended 8 ml per bottle, which could decrease the sensitivity of the test. [facility] Comment on above: Performed By: #### 6 00-7 ####[facility] LABCLIA [id number] [address] [address] [place] Bacteria Wnd Culton 05-16-19 25 Bacteria identified Cx Nom (Wound) CULTURE, WOUND: No growth GRAM STAIN: Rare Gram positive cocci Many Polymorphonuclear leukocytes Abnormal [facility] Comment on above: Performed By: #### 6 462-6 ####[facility] LABCLIA [id number] [facility] [place] [address] [place] CBC W Auto Differential pane l (Bld)on 05-15-2024 Basophils (Bld) [#/Vol] 0.08 10*3/uL Normal <0.11 [facility] Comment on above: Order Comment: Speci men Type: BLOOD SPECIMENOrdering Facility: [facility] Address: [facility] [place] [address] Performed By: #### 5 7021-8 ####[facility]ATORYCLIA [id number] [place] [address] [place] Basophils/100 WBC (Bld) 0.9 % Normal [facility] Comment on above: Order Comment: Speci men Type: BLOOD SPECIMENOrdering Facility: [facility] Address: [address] [place] [address] Performed By: #### 5 7021-8 ####[facility]ATORYCLIA [id number] [address] [place] Differential cell count method Nom (Bld) Auto Normal [facility] Comment on above: Order Comment: Speci men Type: BLOOD SPECIMENOrdering Facility: [facility] Address: [address] [place] [address] Performed By: #### 5 7021-8 ####[facility]ATORYCLIA [id number] [place] [address] [place] Eosinophils (Bld) [#/Vol] 0.10 10*3/uL Normal <0.46 [facility] Comment on above: Order Comment: Speci men Type: BLOOD SPECIMENOrdering Facility: [facility] Address: [address] [place] [address] Performed By: #### 5 7021-8 ####[facility]ORATORYCLIA [id number] [place] [address] [place] Eosinophils/100 WBC (Bld) 1.1 % Normal [facility] Comment on above: Order Comment: Speci men Type: BLOOD SPECIMENOrdering Facility: [facility] Address: [address] [place] [address] Performed By: #### 5 7021-8 ####[facility]ORYCLIA [id number] [place] [address] [place] Erythrocyte distribution width (RBC) [Ratio] 14.4 % Normal 11.5-15.0 [facility] Comment on above: Order Comment: Speci men Type: BLOOD SPECIMENOrdering Facility: [facility] Address: [address] [place] [address] Performed By: #### 5 7021-8 ####[facility]ORYCLIA [id number] [address] [place] Hematocrit (Bld) [Volume fraction] 44.8 % Normal 36.0-46.0 [facility] Comment on above: Order Comment: Speci men Type: BLOOD SPECIMENOrdering Facility: [facility] Address: [address] [place] [address] Performed By: #### 5 7021-8 ####[facility]ATORYCLIA [id number] [place] [address] [place] Hemoglobin (Bld) [Mass/Vol] 14.5 g/dL Normal 11.5-15.5 [facility] Comment on above: Order Comment: Speci men Type: BLOOD SPECIMENOrdering Facility: [facility] Address: [address] [place] [address] Performed By: #### 5 7021-8 ####[facility]ATORYCLIA [id number] [place] [address] [place] Immature granulocytes (Bld) [#/Vol] 0.04 10*3/uL Normal <0.10 [facility] Comment on above: Order Comment: Speci men Type: BLOOD SPECIMENOrdering Facility: [facility] Address: [address] [place] [address] Performed By: #### 5 7021-8 ####[facility]ORYCLIA [id number] [address] Immature granulocytes/100 WBC (Bld) 0.4 % Normal [facility] Comment on above: Order Comment: Speci men Type: BLOOD SPECIMENOrdering Facility: [facility] Address: [address] [place] [address] Performed By: #### 5 7021-8 ####[facility]ORYCLIA [id number] [place] [address] [place] Lymphocytes (Bld) [#/Vol] 0.94 10*3/uL Low 1.00-4.00 [facility] Comment on above: Order Comment: Speci men Type: BLOOD SPECIMENOrdering Facility: [facility] Address: [address] [place] [address] Performed By: #### 5 7021-8 ####[facility]ORYCLIA [id number] [address] Lymphocytes/100 WBC (Bld) 10.1 % Normal [facility] Comment on above: Order Comment: Speci men Type: BLOOD SPECIMENOrdering Facility: [facility] Address: [address] [place] [address] Performed By: #### 5 7021-8 ####[facility]ORYCLIA [id number] [address] [place] MCH (RBC) [Entitic mass] 31.4 pg Normal 26.0-34.0 [facility] Comment on above: Order Comment: Speci men Type: BLOOD SPECIMENOrdering Facility: [facility] Address: [address] [place] [address] Performed By: #### 5 7021-8 ####[facility]ORYCLIA [id number] [address] MCHC (RBC) [Mass/Vol] 32.4 g/dL Normal 30.5-36.0 [facility] Comment on above: Order Comment: Speci men Type: BLOOD SPECIMENOrdering Facility: [facility] Address: [address] [place] [address] Performed By: #### 5 7021-8 ####[facility]ORYCLIA [id number] [place] [address] [place] MCV (RBC) [Entitic vol] 97.0 fL Normal 80.0-100.0 [facility] Comment on above: Order Comment: Speci men Type: BLOOD SPECIMENOrdering Facility: [facility] Address: [address] [place] [address] Performed By: #### 5 7021-8 ####[facility]ATORYCLIA [id number] [place] [address] [place] Monocytes (Bld) [#/Vol] 0.49 10*3/uL Normal <0.87 [facility] Comment on above: Order Comment: Speci men Type: BLOOD SPECIMENOrdering Facility: [facility] Address: [address] [place] [address] Performed By: #### 5 7021-8 ####[facility]ORYCLIA [id number] [address] [place] Monocytes/100 WBC (Bld) 5.3 % Normal [facility] Comment on above: Order Comment: Speci men Type: BLOOD SPECIMENOrdering Facility: [facility] Address: [address] [place] [address] Performed By: #### 5 7021-8 ####[facility]ATORYCLIA [id number] [place] [address] [place] Neutrophils (Bld) [#/Vol] 7.65 10*3/uL High 1.45-7.50 [facility] Comment on above: Order Comment: Speci men Type: BLOOD SPECIMENOrdering Facility: [facility] Address: [address] [place] [address] Performed By: #### 5 7021-8 ####[facility]ORYCLIA [id number] [address] [place] Neutrophils/100 WBC (Bld) 82.2 % Normal [facility] Comment on above: Order Comment: Speci men Type: BLOOD SPECIMENOrdering Facility: [facility] Address: [address] [place] [address] Performed By: #### 5 7021-8 ####[facility]ATORYCLIA [id number] [place] [address] [facility] [place] Nucleated RBC (Bld) [#/Vol] 10*3/uL Normal <0.01 [facility] Comment on above: Order Comment: Speci men Type: BLOOD SPECIMENOrdering Facility: [facility] Address: [address] [place] [address] Performed By: #### 5 7021-8 ####[facility]ORYCLIA [id number] [place] [address] [facility] [place] Nucleated RBC/100 WBC (Bld) [Ratio] 0.0 /100 WBC Normal [facility] Comment on above: Order Comment: Speci men Type: BLOOD SPECIMENOrdering Facility: [facility] Address: [address] [place] [address] Performed By: #### 5 7021-8 ####[facility]ORYCLIA [id number] [place] [address] [place] Platelet mean volume (Bld) [Entitic vol] 10.2 fL Normal 9.0-12.7 [facility] Comment on above: Order Comment: Speci men Type: BLOOD SPECIMENOrdering Facility: [facility] Address: [address] [place] [address] Performed By: #### 5 7021-8 ####[facility]ORYCLIA [id number] [address] [place] Platelets (Bld) [#/Vol] 278 10*3/uL Normal 150-400 [facility] Comment on above: Order Comment: Speci men Type: BLOOD SPECIMENOrdering Facility: [facility] Address: [address] [place] [address] Performed By: #### 5 7021-8 ####[facility]ORYCLIA [id number] [place] [address] [place] RBC (Bld) [#/Vol] 4.62 10*6/uL Normal 3.90-5.20 [facility] Comment on above: Order Comment: Speci men Type: BLOOD SPECIMENOrdering Facility: [facility] Address: [address] [place] [address] Performed By: #### 5 7021-8 ####[facility]ORYCLIA [id number] [place] [address] [facility] WBC (Bld) [#/Vol] 9.30 10*3/uL Normal 3.70-11.00 [facility] Comment on above: Order Comment: Speci men Type: BLOOD SPECIMENOrdering Facility: [facility] Address: [facility] [place] [address] Performed By: #### 5 7021-8 ####[facility]ATORYCLIA [id number] [place] [address] [place] [facility] CONSULT PROGon 05-15-2024 CONSULT PROG HNO ID: [id number] Author: ALEXI GARZON RPh Service: Pharmacy Author Type: Pharmacist Type: Consult Progress Note Filed: 05/15/2024 20:04 Note Text: PHARMACY VANCOMYCIN DOSING NOTE Patient Name: Michelle Mitchell Admission Date: 05/15/2024 Date of Consult: 05/15/2024 Time of Consult: 8:03 PM Indication: Skin/soft tissue infection Goal Range: 10-20 mcg/mL RECOMMENDATIONS/PLAN: Pharmacy consulted for vancomycin dosing for Michelle Mitchell, a 43 year old female. 1. Patient is currently ordered Vancomycin 750 mg IV q12h. Today is day 1 of therapy. 2. No vancomycin level has been drawn for this dosing regimen. 3. The present dose of vancomycin is the recommended dosage for this patient at this time. Continue therapy as prescribed. 4. The next vancomycin level will be ordered for 05/17/24 unless clinically indicated sooner. (Pharmacy will order) We will follow patient renal function, vancomycin levels and doses with you during the course of therapy. Additional recommendations will appear in follow up notes. If you have any questions, please contact pharmacy at [phone]. Age: [age] year old Allergies: ALLERGIES Allergen Reactions Prozac [Fluoxetine * Other: See Comments suicidal ideations Ativan [Lorazepam] Vomiting Azithromycin Intolerance [place] Anaphylaxis [place] Anaphylaxis pickles Fish Anaphylaxis Levofloxacin In D5w Swelling, Itching IV site swollen, ceased after d/c, redness and itching at site Neurontin [Gabapent* Mental Status Change Shellfish Anaphylaxis Tigan [Trimethobenz* Anaphylaxis Ultram [Tramadol] Hives Pt states she also pukes a lot Vicodin [Hydrocodon* Shortness of Breath pt states that she is able to take percocet Zofran [Ondansetron* Hives, Swelling, GI Upset Last 3 Encounter Wt Readings: Date: Wt: 05/15/2024 54.3 kg (119 lb 11.4 oz) 04/25/2021 54.4 kg (120 lb) 04/24/2021 59 kg (130 lb) Last 1 Encounter Ht Readings: Date: Ht: 05/15/2024 160 cm (5' 3) CrCl: 67 mL/min Temp (24hrs), Av.7 ?C (98 ?F), Min:36.6 ?C (97.8 ?F), Max:36.8 ?C (98.2 ?F) - Current Temp: 36.6 ?C (97.8 ?F) Labs BUN (mg/dL) Date Value 05/15/2024 11 04/26/2021 11 04/25/2021 4 (L) Creatinine (mg/dL) Date Value 05/15/2024 0.89 04/26/2021 0.73 04/25/2021 0.71 WBC (k/uL) Date Value 05/15/2024 9.30 04/26/2021 7.40 04/25/2021 9.72 Vancomycin Levels: No results found for: ALICIA [facility] CT CHEST W IVCONon CT CHEST W IVCON * * *Final Report* * * DATE OF EXAM: May 15 2024 7:02PM [facility] 0539 - CT CHEST W IVCON / PROCEDURE REASON: Pneumonia, effusion or abscess suspected, xray done * * * * Physician Interpretation * * * * EXAMINATION: CHEST CT WITH CONTRAST CLINICAL HISTORY: Pneumonia or pleural effusion on x-ray Technique: Spiral CT acquisition of the chest from the thoracic inlet to the upper abdomen following IV contrast. MQ: CTCW_6 Contrast: 50 mL Omnipaque [address] Radiation dose: Integrated Dose-length product (DLP) for this visit = 119 mGy*cm CT Dose Reduction Employed: Automated exposure control(AEC) and iterative recon Comparison: Chest x-ray 05/15/[address] chest 04/25/2021 RESULT: Limitations: None. Lines, tubes, and devices: Unchanged position of an AICD Lung parenchyma and airways: No consolidation. Bilateral smooth interlobular septal thickening. No suspicious pulmonary nodule. The central airways are patent. Pleural space: Small right pleural effusion with fluid in the major and minor fissures. Trace left pleural effusion. Lower neck, lymph nodes, and mediastinum: The imaged thyroid gland is normal. No lymphadenopathy in the supraclavicular, axillary or mediastinal regions. Unchanged right hilar lymphadenopathy. Heart, pericardium, and thoracic vessels: The thoracic aorta and main pulmonary artery are normal in caliber. Left atrial dilatation. No coronary artery atherosclerotic calcifications are noted, although the study is not optimized for coronary assessment. No pericardial effusion or thickening. Bones and soft tissues: No destructive bone lesion. Chest wall is unremarkable. Upper abdomen: No abnormality in the imaged upper abdomen. Localizer images: No additional findings. IMPRESSION: Small right pleural effusion and trace left pleural effusion. Bilateral smooth interlobular septal thickening likely due to edema. Assembly Department Supervisor: KIM Transcribe Date/Time: May 16 2024 9:02A Dictated by : BREANN HOOD MD This examination was interpreted and the report reviewed and electronically signed by: BREANN HOOD MD on May 16 2024 9:22AM EST [id number] Normal [facility] Comprehensive metabolic 2000 panelon 05-15-2024 Albumin [Mass/Vol] 4.5 g/dL Normal 3.9-4.9 [facility] Comment on above: Order Comment: Speci men Type: BLOOD SPECIMEN Ordering Facility: [facility] Address: [address] [place] [address] Performed By: #### 5 8410-2 #### [facility] CLIA [id number] [address] [place] [address] [place] ALP [Catalytic activity/Vol] 127 U/L High 34-123 [facility] Comment on above: Order Comment: Speci men Type: BLOOD SPECIMEN Ordering Facility: [facility] Address: [address] [place] [address] Performed By: #### 5 8410-2 #### [facility] CLIA [id number] [address] [place] [address] [place] ALT [Catalytic activity/Vol] 22 U/L Normal 7-38 [facility] Comment on above: Order Comment: Speci men Type: BLOOD SPECIMEN Ordering Facility: [facility] Address: [address] [place] [address] Performed By: #### 5 8410-2 #### [facility] CLIA [id number] [address] [place] [address] [place] Anion gap [Moles/Vol] 8 mmol/L Normal 8-15 [facility] Comment on above: Order Comment: Speci men Type: BLOOD SPECIMEN Ordering Facility: [facility] Address: [address] [place] [address] Performed By: #### 5 8410-2 #### [facility] CLIA [id number] [address] AST [Catalytic activity/Vol] 23 U/L Normal 13-35 [facility] Comment on above: Order Comment: Speci men Type: BLOOD SPECIMEN Ordering Facility: [facility] Address: [address] [place] [address] Performed By: #### 5 8410-2 #### [facility] CLIA [id number] [address] [place] Bilirubin [Mass/Vol] 0.9 mg/dL Normal 0.2-1.3 [facility] Comment on above: Order Comment: Speci men Type: BLOOD SPECIMEN Ordering Facility: [facility] Address: [address] [place] [address] Performed By: #### 5 8410-2 #### [facility] CLIA [id number] [address] [place] [address] [place] Calcium [Mass/Vol] 9.4 mg/dL Normal 8.5-10.2 [facility] Comment on above: Order Comment: Speci men Type: BLOOD SPECIMEN Ordering Facility: [facility] Address: [address] [place] [address] Performed By: #### 5 8410-2 #### [facility] CLIA [id number] [address] STATES OF [facility] Chloride [Moles/Vol] 104 mmol/L Normal 98-107 [facility] Comment on above: Order Comment: David horton Type: BLOOD SPECIMEN Ordering Facility: [facility] Address: [address] [place] [address] Performed By: #### 5 8410-2 #### [facility] CLIA [id number] [address] OF [facility] CO2 [Moles/Vol] 25 mmol/L Normal 22-30 [facility] Comment on above: Order Comment: Kianai men Type: BLOOD SPECIMEN Ordering Facility: [facility] Address: [address] [place] [address] Performed By: #### 5 8410-2 #### [facility] CLIA [id number] [address] Creatinine [Mass/Vol] 0.89 mg/dL Normal 0.58-0.96 [facility] Comment on above: Order Comment: David horton Type: BLOOD SPECIMEN Ordering Facility: [facility] Address: [address] [place] [address] Performed By: #### 5 8410-2 #### [facility] CLIA [id number] [address] Creatinine and Glomerular filtration rate.predicted panel (S/P/Bld) 82 mL/min/1.73m??? Normal >=60 [facility] Comment on above: Order Comment: David sol Type: BLOOD SPECIMEN Ordering Facility: [facility] Address: [address] [place] [address] Result Comment: Sandie mated Glomerular Filtration Rate (eGFR) is calculated using the 2020 CKD-EPI creatinine equation. This equation utilizes serum creatinine, sex, and age as parameters. The creatinine assay has traceable calibration to isotope dilution-mass spectrometry. Refer to KDIGO guidelines for clinical interpretation. In patients with unstable renal function, e.g. those with acute kidney injury, the eGFR may not accurately reflect actual GFR. Performed By: #### 5 8410-2 #### [facility] CLIA [id number] [address] [place] Glucose [Mass/Vol] 80 mg/dL Normal 74-99 [facility] Comment on above: Order Comment: David horton Type: BLOOD SPECIMEN Ordering Facility: [facility] Address: [address] [place] [address] Result Comment: The [place] Diabetes Association (ADA) provides guidance for cutoff values for fasting glucose and random glucose. The ADA defines fasting as no caloric intake for at least 8 hours. Fasting plasma glucose results between 100 to 125 mg/dL indicate increased risk for diabetes (prediabetes). Fasting plasma glucose results greater than or equal to 126 mg/dL meet the criteria for diagnosis of diabetes. In the absence of unequivocal hyperglycemia, results should be confirmed by repeat testing. In a patient with classic symptoms of hyperglycemia or hyperglycemic crisis, random plasma glucose results greater than or equal to 200 mg/dL meet the criteria for diagnosis of diabetes. Reference: Standards of Medical Care in Diabetes 2016, [place] Diabetes Association. Diabetes Care. 2016.39(Suppl 1). Performed By: #### 5 8410-2 #### [facility] CLIA [id number] [address] [place] [address] [place] Potassium [Moles/Vol] 4.3 mmol/L Normal 3.7-5.1 [facility] Comment on above: Order Comment: David horton Type: BLOOD SPECIMEN Ordering Facility: [facility] Address: [address] [place] [address] Performed By: #### 5 8410-2 #### [facility] CLIA [id number] [address] [place] [address] [place] Protein [Mass/Vol] 7.3 g/dL Normal 6.3-8.0 [facility] Comment on above: Order Comment: David horton Type: BLOOD SPECIMEN Ordering Facility: [facility] Address: [address] [place] [address] Performed By: #### 5 8410-2 #### [facility] CLIA [id number] [address] [place] [address] [place] Sodium [Moles/Vol] 137 mmol/L Normal 136-144 [facility] Comment on above: Order Comment: David horton Type: BLOOD SPECIMEN Ordering Facility: [facility] Address: [address] [place] [address] Performed By: #### 5 8410-2 #### [facility] CLIA [id number] [address] [place], [place] [address] [place] [address] Urea nitrogen [Mass/Vol] 11 mg/dL Normal 7- [facility] Comment on above: Order Comment: Speci men Type: BLOOD SPECIMEN Ordering Facility: [facility] Address: [facility] [place] [address] Performed By: #### 5 8410-2 #### [facility] CLIA [id number] [address] [place] ED NOTEon 05-15-2024 ED NOTE HNO ID: [id number] Author: CK TADEO RN Service: Nursing Author Type: Registered Nurse Type: ED Notes Filed: 05/15/2024 17:54 Note Text: Report called to [address] [place] [address]. [facility] ED PROV NOTEon 05-15-2024 ED PROV NOTE HNO ID: [id number] Author: TARIQ PEREZ MD Service: Emergency Medicine Author Type: Physician Type: ED Provider Notes Filed: 05/15/2024 15:32 Note Text: ED Provider Note Patient Name: Michelle Mitchell : 1980 SERVICE DATE: 05/15/24 History Patient presents with: Abscess: Left leg abscess since , put on abx at [facility]. Worsening pain and increase in size. Associated nausea. 43-year-old female presents to the emergency department with abscess on her left lower leg. She states on she noticed it was there. She denies any injury, trauma or bites. She was put on Bactrim on Tuesday and it has only continued to become more swollen and painful. She denies any fevers or chills. She does have nausea. She has a AICD for history of HOCM, she reports is genetic and found after echo for persistent chest pain. History provided by: Patient immunology teacher used: No PAST MEDICAL HISTORY Diagnosis Date Breast cancer (HCC) Age 17 treated with radiation, lumpectomy and masectomy CIS (carcinoma in situ of cervix) Colon polyp 07/2015 Congestive heart failure (HCC) HOCM DVT (deep venous thrombosis) (HCC) Endometrial cancer (HCC) treated with ablation Gastroesophageal reflux disease 08/17/2017 GERD (gastroesophageal reflux disease) Hypertr obst cardiomyop ICD (implantable cardiac defibrillator) battery depletion Kidney stone Migraine Ovarian epithelial cancer (HCC) This diagnosis unlikely as both ovaries present 05/09/2018 laparoscopy Pericarditis PUD (peptic ulcer disease) Pulmonary embolism (HCC) 11/2016 Vaginal Pap smear with ASC-US 12/2016 PAST SURGICAL HISTORY Procedure Laterality Date ANES PERMANENT TRANSVENOUS PACEMAKER INSERTION 2006 ICD implant, [facility] ANESTHESIA TUBAL LIGATION/TRANSECTION APPENDECTOMY 05/05/2014 , lap BREAST LUMPECTOMY HX Left 1997 with radiation CHOLECYSTECTOMY HX 08/2010 lap COLONOSCOPY AND POLYPECTOMY 08/07/2015 CONIZATION CERVIX W/WO DANDC RPR KNIFE/LASER CIS EGD 08/25/2017 Tabbaa- normal ENDOMETRIAL ABLATION WITH US GUIDANCE for abnormal uterine bleeding EXCISION OF CYST 08/23/2017 Dr. Velasco Excision of sebaceous cyst IMPLANTABLE CARDIAC DEFIB ICD 02/2009, 10/19/2016 LAPAROSCOPY DIAGNOSTIC 07/21/2015 Lysis of adhesions, MIDLINE INSERTION/CONSULT 01/18/2017 PAST SURGICAL HISTORY OF 05/24/2014 Laparoscopy, FAMILY HISTORY Problem Relation Age of Onset Heart Mother heart valve replaced, was in a car accident in early age Breast Cancer Mother dx age 50 DVT Mother Heart Father IHSS, CHF, HOCM other (Paternal half-sister) Sister Paternal half-sister; on transplant list other (HOCM) Sister Heart Paternal Grandmother stroke, at age 43 Heart Paternal Grandfather at age 45 Heart Paternal Aunt at age 27 Heart Paternal Aunt at age 29 Cancer Sister 20 Brain Breast Cancer Sister 28 Colon Cancer Sister 26 DVT Sister Heart Sister Reported HOCM, heart transplant at 34 Social History Tobacco Use Smoking status: Every Day Current packs/day: 0.25 Average packs/day: 0.3 packs/day for 42.2 years (10.5 ttl pk-yrs) Types: Cigarettes Start date: 03/14/1982 Smokeless tobacco: Never Tobacco comments: since age 12 yrs Vaping Use Vaping status: Never Used Substance and Sexual Activity Alcohol use: No Drug use: No Sexual activity: Yes Partners: Male ALLERGIES Allergen Reactions Prozac [Fluoxetine * Other: See Comments suicidal ideations Ativan [Lorazepam] Vomiting Azithromycin Intolerance [place] Anaphylaxis Fish Anaphylaxis Levofloxacin In D5w Swelling, Itching IV site swollen, ceased after d/c, redness and itching at site Neurontin [Gabapent* Mental Status Change Pickles [Other] Anaphylaxis Shellfish Anaphylaxis Tigan [Trimethobenz* Anaphylaxis Ultram [Tramadol] Hives Pt states she also pukes a lot Vicodin [Hydrocodon* Shortness of Breath pt states that she is able to take percocet Zofran [Ondansetron* Hives, Swelling, GI Upset Review of Systems Constitutional: Negative for chills and fever. HENT: Negative for congestion and sore throat. Eyes: Negative. Respiratory: Negative for cough and shortness of breath. Cardiovascular: Negative for chest pain and palpitations. Gastrointestinal: Negative for abdominal pain and vomiting. Endocrine: Negative. Genitourinary: Negative for dysuria and frequency. Musculoskeletal: Negative for arthralgias and myalgias. Skin: Positive for wound. Negative for rash. Allergic/Immunologic: Negative. Neurological: Negative for dizziness and syncope. Psychiatric/Behavioral: Negative. Physical Exam Vitals BP Pulse Temp Temp src Resp SpO2 Weight Height 05/15/24 1056 05/15/24 1056 05/15/24 1056 05/15/24 1056 05/15/24 1056 05/15/24 1056 05/15/24 1056 05/15/24 1147 127/74 81 36.8 ?C (98.2 ?F) Or (more content not included)... Normal [facility] EKGon 05-15-2024 Electrocardiogram Ventricular Rate : 7 1 BPM Atrial Rate : 71 BPM P-R Interval : 162 ms QRS Duration : 90 ms Q-T Interval : 406 ms QTC Calculation(Bazett) : 441 ms Calculated P [place] : 41 degrees Calculated R [place] : 260 degrees Calculated T [place] : 75 degrees NORMAL SINUS RHYTHM LEFT ATRIAL ENLARGEMENT BIVENTRICULAR HYPERTROPHY CANNOT RULE OUT SEPTAL INFARCT , AGE UNDETERMINED POSSIBLE LATERAL INFARCT (CITED ON OR BEFORE 22-Dec-2018) ABNORMAL ECG When compared with selected ECG of 24-Apr-2021 22:05, QRS AXIS SHIFTED LEFT no STEMI Confirmed by TARIQ PEREZ MD ([id number]) on 05/15/2024 12:29:22 PM NAME : MICHELLE MITCHELL PID : [id number] : 1980 Gender : Female Race : ORD : Procedure Date : May 15 2024 12:26:51 Edit Date : May 15 2024 12:29:22 Diagnosis: NORMAL SINUS RHYTHM LEFT ATRIAL ENLARGEMENT BIVENTRICULAR HYPERTROPHY CANNOT RULE OUT SEPTAL INFARCT , AGE UNDETERMINED POSSIBLE LATERAL INFARCT (CITED ON OR BEFORE 22-Dec-2018) ABNORMAL ECG When compared with selected ECG of 24-Apr-2021 22:05, QRS AXIS SHIFTED LEFT no STEMI Confirmed by TARIQ PEREZ MD ([id number]) on 05/15/2024 12:29:22 PM Test Reason : Location : 1 : ER ED Overread By : TARIQ PEREZ MD Edited By : TARIQ PEREZ MD Referred By : , Acquired by : LANDON, Carlos Eduardo [facility] Gas and Carbon monoxide pane l (BldV)on 05-15-2024 Base excess Calc (BldV) [Moles/Vol] 0 mmol/L Normal 0-2 [facility] Comment on above: Order Comment: David horton Type: VENOUS BLOOD SPECIMENOrdering Facility: [facility] Address: [address] [place] [address] Performed By: #### 2 4344-4 ####[id number] [facility] [id number] [place] [id number] Carboxyhemoglobin (BldV) [Mass fraction] 2.5 % High 0.0-2.0 [facility] Comment on above: Order Comment: David horton Type: VENOUS BLOOD SPECIMENOrdering Facility: [facility] Address: [address] [place] [address] Result Comment: Carb oxyhemoglobin Reference Range for Smokers: 2.0-8.0% Performed By: #### 2 4344-4 ####[id number] [facility] [id number] [address] [address] CO2 (BldV) [Partial pressure] 41 mm[Hg] Low 42-55 [facility] Comment on above: Order Comment: David horton Type: VENOUS BLOOD SPECIMENOrdering Facility: [facility] Address: [facility] [place] [address] Performed By: #### 2 4344-4 ####[facility] [id number] [place] [address] RESPIRATORY [id number] [address] CO2 adjusted to patient's actual temperature (BldV) [Partial pressure] Normal [facility] Comment on above: Order Comment: Speci men Type: VENOUS BLOOD SPECIMENOrdering Facility: [facility] Address: [address] [place] [address] Performed By: #### 2 4344-4 ####[facility] [id number] [facility] [id number] [address] [address] HCO3 (Bld) [Moles/Vol] 25 mmol/L Normal 24-28 [facility] Comment on above: Order Comment: Speci men Type: VENOUS BLOOD SPECIMENOrdering Facility: [facility] Address: [address] [place], [place] [address] Performed By: #### 2 4344-4 ####[facility] [id number] [facility] [id number] [address] [address] Hemoglobin (Bld) [Mass/Vol] 15.4 g/dL Normal 11.5-15.5 [facility] Comment on above: Order Comment: Speci men Type: VENOUS BLOOD SPECIMENOrdering Facility: [facility] Address: [address] [place] [address] Performed By: #### 2 4344-4 ####[facility] [id number] [facility] [id number] [address] [address] Lactate [Moles/Vol] 1.2 mmol/L Normal 0.5-2.2 [facility] Comment on above: Order Comment: Speci men Type: VENOUS BLOOD SPECIMENOrdering Facility: [facility] Address: [address] [place] [address] Performed By: #### 2 4344-4 ####[facility] [id number] [facility] [id number] [address] [address] Methemoglobin (Bld) [Mass fraction] % Normal 0.0-1.5 [facility] Comment on above: Order Comment: Speci men Type: VENOUS BLOOD SPECIMENOrdering Facility: [facility] Address: [address] [place] [address] Performed By: #### 2 4344-4 ####[facility] [id number] [facility] [id number] [address] [address] O2 THERAPY RA=Room Air [facility] Comment on above: Order Comment: Speci men Type: VENOUS BLOOD SPECIMENOrdering Facility: [facility] Address: [address] [place] [address] Performed By: #### 2 4344-4 ####[facility] [id number] [facility] [id number] [address] [address] Oxygen (BldV) [Partial pressure] 32 mm[Hg] Low 35-45 [facility] Comment on above: Order Comment: Speci men Type: VENOUS BLOOD SPECIMENOrdering Facility: [facility] Address: [address] [place] [address] Performed By: #### 2 4344-4 ####[facility] [id number] [facility] [id number] [address] [address] Oxygen adjusted to patient's actual temperature (BldV) [Partial pressure] [facility] Comment on above: Order Comment: Speci men Type: VENOUS BLOOD SPECIMENOrdering Facility: [facility] Address: [address] [place] [address] Performed By: #### 2 4344-4 ####[facility] [id number] [facility] [id number] [address] [address] Oxygen saturation in Venous blood 59 % Low 60-85 [facility] Comment on above: Order Comment: Speci men Type: VENOUS BLOOD SPECIMENOrdering Facility: [facility] Address: [address] [place] [address] Performed By: #### 2 4344-4 ####[facility] [id number] [facility] [id number] [address] [address] Oxyhemoglobin (BldV) [Mass fraction] 57 % Low 60-85 [facility] Comment on above: Order Comment: Speci men Type: VENOUS BLOOD SPECIMENOrdering Facility: [facility] Address: [address] [place] [id number] Performed By: #### 2 4344-4 ####[facility] [id number] [facility] [id number] [address] [address] pH (BldV) 7.39 [pH] Normal 7.32-7.42 [facility] Comment on above: Order Comment: Speci men Type: VENOUS BLOOD SPECIMENOrdering Facility: [facility] Address: [address] [place] [id number] Performed By: #### 2 4344-4 ####[facility] [id number] [facility] [id number] [address] [address] pH adjusted to patient's actual temperature (BldV) Normal [facility] Comment on above: Order Comment: Speci men Type: VENOUS BLOOD SPECIMENOrdering Facility: [facility] Address: [address] [place] [id number] Performed By: #### 2 4344-4 ####[facility] [id number] [facility] [id number] [address] [address] Potassium [Moles/Vol] 3.9 mmol/L Normal 3.5-5.0 [facility] Comment on above: Order Comment: Speci men Type: VENOUS BLOOD SPECIMENOrdering Facility: [facility] Address: [address] [place] [id number] Performed By: #### 2 4344-4 ####[facility] [id number] [facility] [id number] [address] [address] HIGH SENSITIVITY TROPONIN T (INITIAL)on 05-15-2024 Troponin T.cardiac High sensitivity method [Mass/Vol] 22 ng/L High <12 [facility] Comment on above: Order Comment: Speci men Type: BLOOD SPECIMEN Ordering Facility: [facility] Address: [address] [place] [address] Performed By: #### 5 8410-2 #### [facility] CLIA [id number] [address] [place], [place] [address] [place] HIGH SENSITIVITY TROPONIN T (SECOND)on 05-15-2024 Troponin T.cardiac High sensitivity method [Mass/Vol] 22 ng/L High <12 [facility] Comment on above: Order Comment: Speci men Type: BLOOD SPECIMENOrdering Facility: [facility] Address: [address] [place] [address] Performed By: #### L [id number] ####[facility] [id number] [address] OF [place] HIGH SENSITIVITY TROPONIN T (THIRD) 3 HRS AFTER INITIALon 05-15-2024 Troponin T.cardiac High sensitivity method [Mass/Vol] 24 ng/L High <[address] [place] [address] Comment on above: Order Comment: Speci men Type: BLOOD SPECIMENOrdering Facility: [facility] Address: [address] [place] [address] Performed By: #### L [id number] ####[facility] [id number] [place] [address] [place] HISTORY PHYSICALon HISTORY PHYSICAL HNO ID: [id number] Author: DEX SUTHERLAND MD Service: Family Practice Author Type: Physician Type: H&P Filed: 05/16/2024 08:08 Note Text: HISTORY AND PHYSICAL EXAMINATION - INTERNAL MEDICINE PATIENT NAME: Michelle Mitchell SERVICE DATE: 05/16/2024 SERVICE TIME: 8:05 AM PRIMARY CARE PHYSICIAN: Dex Sutherland MD ASSESSMENT AND PLAN Principal Problem: Abscess of left leg (POA: Yes) Assessment AND Plan: IANDD in ER and zosyn vanco stqarted Gram + on gram stain Waiting on cultures Active Problems: ICD (implantable cardioverter-defibrillat or), single, in situ (POA: Yes) Chest pain (POA: Yes) Nicotine use disorder, F17.2 (POA: Yes) HOCM (hypertrophic obstructive cardiomyopathy) (HCC) (POA: Yes) Assessment AND Plan: home meds Abnormal CXR (POA: Yes) Assessment AND Plan: CT chest Resolved Problems: * No resolved hospital problems. * SUBJECTIVE CHIEF COMPLAINT: painful abscess HISTORY OF PRESENT ILLNESS: Ms. Mitchell is a 43 year old female who presents with abscess on her left lower leg. She states on she noticed it was there. She denies any injury, trauma or bites. She was put on Bactrim on Tuesday and it has only continued to become more swollen and painful. She denies any fevers or chills. She does have nausea. She has a AICD for history of HOCM, she reports is genetic and found after echo for persistent chest pain. PAST MEDICAL HISTORY: PAST MEDICAL HISTORY Diagnosis Date Breast cancer (HCC) Age 17 treated with radiation, lumpectomy and masectomy CIS (carcinoma in situ of cervix) Colon polyp 07/2015 Congestive heart failure (HCC) HOCM DVT (deep venous thrombosis) (HCC) Endometrial cancer (HCC) treated with ablation Gastroesophageal reflux disease 08/17/2017 GERD (gastroesophageal reflux disease) Hypertr obst cardiomyop ICD (implantable cardiac defibrillator) battery depletion Kidney stone Migraine Ovarian epithelial cancer (HCC) This diagnosis unlikely as both ovaries present 05/09/2018 laparoscopy Pericarditis PUD (peptic ulcer disease) Pulmonary embolism (HCC) 11/2016 Vaginal Pap smear with ASC-US 12/2016 PAST SURGICAL HISTORY: PAST SURGICAL HISTORY Procedure Laterality Date ANES PERMANENT TRANSVENOUS PACEMAKER INSERTION 2006 ICD implant, [facility] ANESTHESIA TUBAL LIGATION/TRANSECTION APPENDECTOMY 05/05/2014 , lap BREAST LUMPECTOMY HX Left 1997 with radiation CHOLECYSTECTOMY HX 08/2010 lap COLONOSCOPY AND POLYPECTOMY 08/07/2015 CONIZATION CERVIX W/WO DANDC RPR KNIFE/LASER CIS EGD 08/25/2017 Tabbaa- normal ENDOMETRIAL ABLATION WITH US GUIDANCE for abnormal uterine bleeding EXCISION OF CYST 08/23/2017 Dr. Velasco Excision of sebaceous cyst IMPLANTABLE CARDIAC DEFIB ICD 02/2009, 10/19/2016 LAPAROSCOPY DIAGNOSTIC 07/21/2015 Lysis of adhesions, MIDLINE INSERTION/CONSULT 01/18/2017 PAST SURGICAL HISTORY OF 05/24/2014 Laparoscopy, FAMILY HISTORY: FAMILY HISTORY Problem Relation Age of Onset Heart Mother heart valve replaced, was in a car accident in early age Breast Cancer Mother dx age 50 DVT Mother Heart Father IHSS, CHF, HOCM other (Paternal half-sister) Sister Paternal half-sister; on transplant list other (HOCM) Sister Heart Paternal Grandmother stroke, at age 43 Heart Paternal Grandfather at age 45 Heart Paternal Aunt at age 27 Heart Paternal Aunt at age 29 Cancer Sister 20 Brain Breast Cancer Sister 28 Colon Cancer Sister 26 DVT Sister Heart Sister Reported HOCM, heart transplant at 34 SOCIAL HISTORY: Social History Tobacco Use Smoking status: Every Day Current packs/day: 0.25 Average packs/day: 0.3 packs/day for 42.2 years (10.5 ttl pk-yrs) Types: Cigarettes Start date: 03/14/1982 Smokeless tobacco: Never Tobacco comments: since age 12 yrs Vaping Use Vaping status: Never Used Substance Use Topics Alcohol use: No Drug use: No MEDICATIONS: vortioxetine (TRINTELLIX) 10 mg tablet, Take 10 mg by mouth once daily., Disp: , Rfl: , 05/15/2024 albuterol HFA (VENTOLIN HFA) 90 mcg/actuation inhaler, Inhale 2 Puffs as instructed every 4 hours as needed for wheezing/shortness of breath., Disp: , Rfl: , Taking As Needed ALPRAZolam (XANAX) 0.5 mg tablet, Take 0.5 mg by mouth twice daily., Disp: , Rfl: , 05/15/2024 zolpidem (AMBIEN) 10 mg Tab, Take 10 mg by mouth daily at bedtime., Disp: , Rfl: , Taking ALLERGIES: ALLERGIES Allergen Reactions Prozac [Fluoxetine * Other: See Comments suicidal ideations Ativan [Lorazepam] Vomiting Azithromycin Intolerance [place] Anaphylaxis [place] Anaphylaxis pickles Fish Anaphylaxis Levofloxacin In D5w Swelling, Itching IV site swollen, ceased after d/c, redness and itching at site Neurontin [Gabapent* Mental Status Change Shellfish Anaphylaxis Tigan [Trimethobenz* Anaphylaxis Ultram [Tram (more content not included)... Normal [facility] Natriuretic peptide.B prohormone N-Terminal [Mass/Vol] 2616 pg/mL High <125 [facility] Comment on above: Order Comment: Speci men Type: BLOOD SPECIMEN [facility] Facility[facility] Address: [address] [place] [address] Performed By: #### 5 8410-2 #### [facility] CLIA [id number] [address] [place] [address] [place] PT panel Coag (PPP)on 2024 INR Coag (PPP) [Relative time] 1.1 {INR} Normal 0.9-1.3 [facility] Comment on above: Order Comment: David horton Type: BLOOD SPECIMENOrdering Facility: [facility] Address: [address] [place] [address] [place] [address] Result Comment: Nancy min K Antagonist (VKA) Therapeutic Range: INR 2 to 3 (Target INR of 2.5) Note: For patients treated with VKA drugs, such as warfarin, the [place] [employer] 2012 Guideline recommends a therapeutic INR range of 2 to 3 (target INR of 2.5). This recommendation includes high-risk patients with antiphospholipid syndrome with previous arterial or venous thromboembolism, current-generation mechanical or bioprosthetic aortic heart valve replacement. Note: Patients with mechanical aortic valve replacement and additional risk factors for thromboembolic events (atrial fibrillation, previous thromboembolism, LV dysfunction, hypercoagulable conditions) or an older generation mechanical AVR (i.e., ball in-Cage) or any mechanical MVR should have a INR therapeutic range of 2.5 to 3.5 (target INR of 3). Coby GH, et al. Chest 2012, 141:7S-47S Gia RA, et al. [facility] 2017, 70: 252-289 Performed By: #### 3 4528-0, 86965-7 ####[facility]ORYCLIA [id number] [address] STATES OF [facility] PT Coag (PPP) [Time] 11.7 s Normal 9.7-13.0 [facility] Comment on above: Order Comment: Spectian men Type: BLOOD SPECIMENOrdering Facility: [facility] Address: [address] [place] [address] Performed By: #### 3 4528-0, 99076-8 ####[facility]ORYCLIA [id number] [address] [place] XR CHEST 1V FRONTAL PORTon 0 05-15-2024 XR CHEST 1V FRONTAL PORT * * *Final Repo rt* * * DATE OF EXAM: May 15 2024 11:55AM MDX [id number] - XR CHEST 1V FRONTAL PORT / PROCEDURE REASON: Fatigue and malaise * * * * Physician Interpretation * * * * EXAMINATION: CHEST RADIOGRAPH (PORTABLE SINGLE VIEW AP) Exam Date/Time: 05/15/2024 11:55 AM CLINICAL HISTORY: Fatigue and malaise MQ: XCPR_5 Comparison: 1 day prior RESULT: Lines, tubes, and devices: Pacemaker wire in the right ventricle. Lungs and pleura: Bilateral perihilar opacity may reflect consolidation and also fluid loculated within the right great fissure. No left pleural effusion. No pneumothorax. Cardiomediastinal silhouette: Stable cardiomediastinal silhouette. Other: . IMPRESSION: Bilateral consolidation is suspected. Assembly Department Supervisor: KIM Transcribe Date/Time: May 15 2024 12:02P Dictated by : BOGDAN LUNA MD This examination was interpreted and the report reviewed and electronically signed by: BOGDAN LUNA MD on May 15 2024 12:05PM EST [id number] Normal [facility] aPTT PPPon 05-15-2024 aPTT Coag (PPP) [Time] 28.2 s Normal 23.0-32.4 [facility] Comment on above: Order Comment: Speci men Type: BLOOD SPECIMENOrdering Facility: [facility] Address: [address] [place] [address] Performed By: #### 3 4528-0, 50674-0 ####[facility]CLIA [id number] [address] OF [facility] Emergency Department Summary on 05-12-2024 Emergency Department Summary Normal [facility] Pacemaker Checkon 03-28-2024 Pacemaker Check Normal [facility] CBC (INCLUDES DIFF/PLT)on Basophils (Bld) [#/Vol] 0.056 10*3/uL Normal 0-200 [facility] Comment on above: Performed By: #### 1 0231, 7137, 5616, 1005, 899, 6399 #### [facility] [address], [address] [place] [id number] Jacker: Gage Viramontes MD Basophils/100 WBC (Bld) 0.5 % Normal [facility] Comment on above: Performed By: #### 1 0231, 7137, 5616, 1005, 899, 6399 #### [facility] of [place] [address] Jacker: Gage Viramontes MD Eosinophils (Bld) [#/Vol] 0.122 10*3/uL Normal 15-500 [facility] Comment on above: Performed By: #### 1 0231, 7137, 5616, 1005, 899, 6399 #### [facility] of [place] [address] Jacker: Gage Viramontes MD Eosinophils/100 WBC (Bld) 1.1 % Normal [facility] Comment on above: Performed By: #### 1 0231, 37, 5616, 1005, 899, 6399 #### [facility] of [place] [address] Jacker: Gage Viramontes MD Erythrocyte distribution width (RBC) [Ratio] 11.5 % Normal 11.0-15.0 [facility] Comment on above: Performed By: #### 1 0231, 7137, 5616, 1005, 899, 6399 #### [facility] [place] [address] Jacker: Gage Viramontes MD Hematocrit (Bld) [Volume fraction] 43.8 % Normal 35.0-45.0 [facility] Comment on above: Performed By: #### 1 0231, 7137, 5616, 1005, 899, 6399 #### [facility] of [place] [address] Jacker: Gage Viramontes MD Hemoglobin (Bld) [Mass/Vol] 14.5 g/dL Normal 11.7-15.5 [facility] Comment on above: Performed By: #### 1 0231, 7137, 5616, 1005, 899, 6399 #### [facility] of [address], [address] [place] [address] Jacker: Gage Viramontes MD Lymphocytes (Bld) [#/Vol] 1.021 10*3/uL Normal 850-3900 [facility] Comment on above: Performed By: #### 1 0231, 7137, 5616, 1005, 899, 6399 #### [facility] [place] [address] Jacker: Gage Viramontes MD Lymphocytes/100 WBC (Bld) 9.2 % Normal [facility] Comment on above: Performed By: #### 1 0231, 7137, 5616, 1005, 899, 6399 #### [facility] [place] [address] Jacker: Gage Viramontes MD MCH (RBC) [Entitic mass] 31.7 pg Normal 27.0-33.0 [facility] Comment on above: Performed By: #### 1 0231, 7137, 5616, 1005, 899, 6399 #### [facility] [place] [address] Jacker: Gage Viramontes MD MCHC (RBC) [Mass/Vol] 33.1 g/dL Normal 32.0-36.[address] [facility] Comment on above: Result Comment: For adults, a slight decrease in the calculated MCHC value (in the range of 30 to 32 g/dL) is most likely not clinically significant; however, it should be interpreted with caution in correlation with other red cell parameters and the patient's clinical condition. Performed By: #### 1 0231, 7137, 5616, 1005, 899, 6399 #### [facility] [place] [address] Jacker: Gage Viramontes MD MCV (RBC) [Entitic vol] 95.8 fL Normal 80.0-100.0 [facility] Comment on above: Performed By: #### 1 0231, 7137, 5616, 1005, 899, 6399 #### [facility] of [place] [address] Jacker: Gage Viramontes MD Monocytes (Bld) [#/Vol] 0.522 10*3/uL Normal 200-950 [facility] Comment on above: Performed By: #### 1 0231, 7137, 5616, 1005, 899, 6399 #### [facility] of [place] [address] Jacker: Gage Viramontes MD Monocytes/100 WBC (Bld) 4.7 % Normal [facility] Comment on above: Performed By: #### 1 0231, 7137, 5616, 1005, 899, 6399 #### [facility] of [place] [address] Jacker: Gage Viramontes MD Neutrophils (Bld) [#/Vol] 9.38 10*3/uL High 0242-9837 [facility] Comment on above: Performed By: #### 1 0231, 7137, 5616, 1005, 899, 6399 #### [facility] of [place] [address] Jacker: Gage Viramontes MD Neutrophils/100 WBC (Bld) 84.5 % Normal [facility] Comment on above: Performed By: #### 1 0231, 7137, 5616, 1005, 899, 6399 #### [facility] of [place] [address] Jacker: Gage Viramontes MD Platelet mean volume (Bld) [Entitic vol] 12.1 fL Normal 7.5-12.5 [facility] Comment on above: Performed By: #### 1 0231, 7137, 5616, 1005, 899, 6399 #### [facility] of [place] [address] Jacker: Gage Viramontes MD Platelets (Bld) [#/Vol] 270 10*3/uL Normal 140-400 [facility] Comment on above: Performed By: #### 1 0231, 7137, 5616, 1005, 899, 6399 #### [facility] of [place] [address] Jacker: Gage Viramontes MD RBC (d) [#/Vol] 4.57 10*6/uL Normal 3.80-5.10 [facility] Comment on above: Performed By: #### 1 0231, 7137, 5616, 1005, 899, 6399 #### [facility] of [place] [address] Jacker: Gage Viramontes MD WBC (d) [#/Vol] 11.1 10*3/uL High 3.8-10.8 [facility] Comment on above: Performed By: #### 1 0231, 7137, 5616, 1005, 899, 6399 #### [facility] of [place] [address] Jacker: Gage Viramontes MD [facility] METABOLIC [facility] 01-06-2024 Albumin [Mass/Vol] 5.0 g/dL Normal 3.6-5.1 [facility] Comment on above: Performed By: #### 1 0231, 7137, 5616, 1005, 899, 6399 #### [facility] of [place] [address] Jacker: Gage Viramontes MD Albumin/Globulin [Mass ratio] 1.9 {ratio} Normal 1.0-2.5 [facility] Comment on above: Performed By: #### 1 0231, 7137, 5616, 1005, 899, 6399 #### [facility] of [place] [address] Jacker: Gage Viramontes MD ALP [Catalytic activity/Vol] 93 U/L Normal 31-125 [facility] Comment on above: Performed By: #### 1 0231, 7137, 5616, 1005, 899, 6399 #### [facility] of [address], [address] [place] [address] Jacker: Gage Viramontes MD ALT [Catalytic activity/Vol] 27 U/L Normal 6-29 [facility] Comment on above: Performed By: #### 1 0231, 7137, 5616, 1005, 899, 6399 #### [facility] [place] [address] Jacker: Gage Viramontes MD AST [Catalytic activity/Vol] 21 U/L Normal 10-30 [facility] Comment on above: Performed By: #### 1 0231, 7137, 5616, 1005, 899, 6399 #### [facility] of [place] [address] Jacker: Gage Viramontes MD Bilirubin [Mass/Vol] 0.6 mg/dL Normal 0.2-1.2 [facility] Comment on above: Performed By: #### 1 0231, 7136, 561, 1005, 899, 6399 #### [facility] [place] [address] Jacker: Gage Viramontes MD BUN/CREATININE RATIO SEE NOTE: Normal 6-22 [facility] Comment on above: Result Comment: Not Reported: BUN and Creatinine are within reference range. Performed By: #### 1 0231, 7136, 561, 1005, 899, 6399 #### [facility] [place] [address] Jacker: Gage Viramontes MD Calcium [Mass/Vol] 9.8 mg/dL Normal 8.6-10.2 [facility] Comment on above: Performed By: #### 1 0231, 7137, 5616, 1005, 899, 6399 #### [facility] of [place] [address] Jacker: Gage Viramontes MD Chloride [Moles/Vol] 108 mmol/L Normal 98-110 [facility] Comment on above: Performed By: #### 1 0231, 37, 561, 1005, 899, 6399 #### [facility] [place] [address] Jacker: Gage Viramontes MD CO2 [Moles/Vol] 22 mmol/L Normal 20-32 [facility] Comment on above: Performed By: #### 1 0231, 7136, 561, 1005, 899, 6399 #### [facility] [place] [address] Jacker: Gage Viramontes MD Creatinine [Mass/Vol] 0.77 mg/dL Normal 0.50-0.[address] [facility] Comment on above: Performed By: #### 1 0231, 7136, 561, 100, 89, 6399 #### [facility] [place] [address] Jacker: Gage Viramontes MD GFR/1.73 sq M.predicted among non-blacks MDRD (S/P/Bld) [Vol rate/Area] 97 mL/min/{1.73_m2} Normal > OR = 60 [facility] Comment on above: Performed By: #### 1 0231, 7136, 561, 100, 89, 6399 #### [facility] [place] [address] Jacker: Gage Viramontes MD Globulin (S) [Mass/Vol] 2.6 g/dL Normal 1.9-3.7 [facility] Comment on above: Performed By: #### 1 0231, 37, 561, 1005, 899, 6399 #### [facility] [place] [address] Jacker: Gage Viramontes MD Glucose [Mass/Vol] 82 mg/dL Normal 65-99 [facility] Comment on above: Result Comment: Fasting reference interval Performed By: #### 1 0231, 7137, 5616, 1005, 899, 6399 #### [facility] of [address], [address] [place] [address] Jacker: Gage Viramontes MD Potassium [Moles/Vol] 3.9 mmol/L Normal 3.5-5.3 [facility] Comment on above: Performed By: #### 1 0231, 7137, 5616, 1005, 899, 6399 #### [facility] of [place] [address] Jacker: Gage Viramontes MD Protein [Mass/Vol] 7.6 g/dL Normal 6.1-8.1 [facility] Comment on above: Performed By: #### 1 0231, 7137, 5616, 1005, 899, 6399 #### [facility] of [place] [address] Jacker: Gage Viramontes MD Sodium [Moles/Vol] 138 mmol/L Normal 135-146 [facility] Comment on above: Performed By: #### 1 0231, 7137, 5616, 1005, 899, 6399 #### [facility] of [place] [address] Jacker: Gage Viramontes MD Urea nitrogen [Mass/Vol] 12 mg/dL Normal 7-25 [facility] Comment on above: Performed By: #### 1 0231, 7137, 5616, 1005, 899, 6399 #### [facility] [place] [address] Jacker: Gage Viramontes MD FSH AND LHon 01-06-2024 FSH 3.7 mIU/mL Normal [facility] Comment on above: Result Comment: Refe rence Range Follicular Phase 2.5-10.2 Mid-cycle Peak 3.1-17.7 Luteal Phase 1.5- 9.1 Postmenopausal 23.0-116.3 Performed By: #### 1 0231, 7137, 5616, 1005, 899, 6399 #### [facility] [place] [address] Jacker: Gage Viramontes MD LH 3.0 mIU/mL Normal [facility] Comment on above: Result Comment: Refe rence Range Follicular Phase 1.9-12.5 Mid-Cycle Peak 8.7-76.3 Luteal Phase 0.5-16.9 Postmenopausal 10.0-54.7 Performed By: #### 1 0231, 7137, 5616, 1005, 899, 6399 #### [facility] [place] [address] Jacker: Gage Viramontes MD IRON, TIBC AND FERRITIN PANE [facility] 01-06-2024 % SATURATION 37 % (calc) Normal 16-45 [facility] Comment on above: Performed By: #### 1 0231, 7137, 5616, 1005, 899, 6399 #### [facility] [place] [address] Jacker: Gage Viramontes MD Ferritin [Mass/Vol] 73 ng/mL Normal 16-232 [facility] Comment on above: Performed By: #### 1 0231, 7137, 5616, 1005, 899, 6399 #### [facility] [place] [address] Jacker: Gage Viramontes MD IRON BINDING CAPACITY 340 mcg/dL (calc) Normal 250-450 [facility] Comment on above: Performed By: #### 1 0231, 7137, 5616, 1005, 899, 6399 #### [facility] [place] [address] Jacker: Gage Viramontes MD IRON, TOTAL 125 mcg/dL Normal 40-190 [facility] Comment on above: Performed By: #### 1 0231, 7137, 5616, 1005, 899, 6399 #### [facility] [place] [address] Jacker: Gage Viramontes MD TEST AUTHORIZATIONon 024 CLIENT CONTACT: Normal [facility] Comment on above: Performed By: #### 1 0231, 7137, 5616, 1005, 899, 6399 #### [facility] [place] [address] Jacker: Gage Viramontes MD COMMENT Normal [facility] Comment on above: Result Comment: Plea se have the ordering physician or his or her authorized industrial sales representative sign a copy of this report and promptly return it by faxing it to: [phone] or by returning the form to your musical instrument mechanic. Performed By: #### 1 0231, 7137, 5616, 1005, 899, 6399 #### [facility] [address], [address] [place] [address] Jacker: Gage Viramontes MD REPORT ALWAYS MESSAGE SIGNATURE Normal [facility] Comment on above: Result Comment: The laboratory testing on this patient was verbally requested or confirmed by the ordering physician or his or her authorized industrial sales representative after contact with an employee of [employer]. Federal regulations require that we maintain on file written authorization for all laboratory testing. Accordingly we are asking that the ordering physician or his or her authorized industrial sales representative sign a copy of this report and promptly return it to the client relation specialist. Signature: _ Performed By: #### 1 0231, 7137, 5616, 1005, 899, 6399 #### [facility] [place] [address] Jacker: Gage Viramontes MD TEST CODE: [id number] Normal [facility] Comment on above: Performed By: #### 1 0231, 7137, 5616, 1005, 899, 6399 #### [facility] [place] [address] Jacker: Gage Viramontes MD TEST NAME: CMP Normal [facility] Comment on above: Performed By: #### 1 0231, 7137, 5616, 1005, 899, 6399 #### [facility] of [place] [address], [address] [place] [address] Jacker: Gage Viramontes MD TSHon 01-06-2024 TSH Qn 0.95 m[IU]/L Normal [facility] Comment on above: Result Comment: Refe rence Range > or = 20 Years 0.40-4.50 Ranges First trimester 0.26-2.66 Second trimester 0.55-2.73 Third trimester 0.43-2.91 Performed By: #### 1 0231, 7137, 5616, 1005, 899, 6399 #### [facility] [address], [address] [place] [address] Jacker: Gage Viramontes MD Pacemaker Checkon 11-23-2023 Pacemaker Check Normal [facility] Emergency Department Summary on 11-02-2023 Emergency Department Summary Normal [facility] Lactic Acidon 11-02-2023 Lactate [Moles/Vol] 1.0 mmol/L Normal 0.4-1.9 [facility] Comment on above: Order Comment: Y Performed By: #### L 503.6005 ####[facility] [address] [place], [address] Abdomen/Pelvis W IV Cont ONL Yon 11-01-2023 Abdomen/Pelvis W IV Cont ONLY Normal [facility] CBC W/Diff, Automatedon 10-13 SMEAR COMMENT SCANNED Normal [facility] Comment on above: Performed By: #### L 500.4050, L700.6800, L100.0100 ####[facility] [address] [place], [address] Comprehensive Metabolic Prof ilon 11-01-2023 Albumin [Mass/Vol] 4.0 g/dL Normal 3.2-5.0 [facility] Comment on above: Performed By: #### L 500.4050, L700.6800, L100.0100 ####[facility] [address] [place], [address] Albumin/Globulin [Mass ratio] 1.2 {ratio} Normal 0.9-2.[address] [facility] Comment on above: Performed By: #### L 500.4050, L700.6800, L100.0100 ####[facility] [address] [place], [address] ALK P 90 U/L Normal 45-[address] [facility] Comment on above: Performed By: #### L 500.4050, L700.6800, L100.0100 ####[facility] [address] [place], [address] ALT [Catalytic activity/Vol] 24 U/L Normal 13-[address] [facility] Comment on above: Performed By: #### L 500.4050, L700.6800, L100.0100 ####[facility] [address] [place], [address] AST [Catalytic activity/Vol] 19 U/L Normal 15-[address] [facility] Comment on above: Performed By: #### L 500.4050, L700.6800, L100.0100 ####[facility] [address] [place], [address] Bilirubin [Mass/Vol] 0.30 mg/dL Normal 0.20-1.00 [facility] Comment on above: Result Comment: For patients on eltrombopag therapy, use of Dimension [place] TBIL is not recommended. Performed By: #### L 500.4050, L700.6800, L100.0100 ####[facility] [address] [place], [address] BUN/CRE 9.7 RATIO Low 10-[address] [facility] Comment on above: Performed By: #### L 500.4050, L700.6800, L100.0100 ####[facility] [address] [place], [address] CA,Total 9.5 mg/dL Normal 8.5-10.[address] [facility] Comment on above: Performed By: #### L 500.4050, L700.6800, L100.0100 ####[facility] [address] [place], [address] Chloride [Moles/Vol] 107 mmol/L Normal 98-107 [facility] Comment on above: Performed By: #### L 500.4050, L700.6800, L100.0100 ####[facility] [address] [place], [address] CO2 [Moles/Vol] 26.0 mmol/L Normal 21.0-32.[address] [facility] Comment on above: Performed By: #### L 500.4050, L700.6800, L100.0100 ####[facility] [address] [place], [address] Creatinine [Mass/Vol] 0.83 mg/dL Normal 0.55-1.02 [facility] Comment on above: Result Comment: The validity of the calculated GFR GFRAA in patients over70 years has not been determined. Clinical correlation isessential. Performed By: #### L 500.4050, L700.6800, L100.0100 ####[facility] [address] [place], [address] ECRCL 74.69 ml/min Normal [facility] Comment on above: Performed By: #### L 500.4050, L700.6800, L100.0100 ####[facility] [address] [place], [address] EST GFR - AA 97 mL/min Normal >[address] [facility] Comment on above: Result Comment: Afri can Egyptian GFR Calc Performed By: #### L 500.4050, L700.6800, L100.0100 ####[facility] [address] [place], [address] GAP 6 Normal 5-[address] [facility] Comment on above: Performed By: #### L 500.4050, L700.6800, L100.0100 ####[facility] [address] [place], [address] GFR/1.73 sq M.predicted among non-blacks MDRD (S/P/Bld) [Vol rate/Area] 80 mL/min/{1.73_m2} Normal >[address] [facility] Comment on above: Result Comment: Non- GFR Calc Performed By: #### L 500.4050, L700.6800, L100.0100 ####[facility] [address] [place], [address] Globulin (S) [Mass/Vol] 3.3 g/dL Normal 2.2-4.2 [facility] Comment on above: Performed By: #### L 500.4050, L700.6800, L100.0100 ####[facility] [address] [place], [address] Glucose [Mass/Vol] 96 mg/dL Normal 74-106 [facility] Comment on above: Performed By: #### L 500.4050, L700.6800, L100.0100 ####[facility] [address] [place], [address] Potassium [Moles/Vol] 3.2 mmol/L Low 3.5-5.1 [facility] Comment on above: Performed By: #### L 500.4050, L700.6800, L100.0100 ####[facility] [address] [place], [address] Sodium [Moles/Vol] 139 mmol/L Normal 136-145 [facility] Comment on above: Performed By: #### L 500.4050, L700.6800, L100.0100 ####[facility] [address] [place], [address] T PROT 7.3 g/dL Normal 6.4-8.[address] [facility] Comment on above: Performed By: #### L 500.4050, L700.6800, L100.0100 ####[facility] [address] [place], [address] Urea nitrogen [Mass/Vol] 8 mg/dL Normal 7-[address] [facility] Comment on above: Performed By: #### L 500.4050, L700.6800, L100.0100 ####[facility] [address] [place], [address] Final Surgical Pathology Rep psychiatric 11-01-2023 Final Surgical Pathology Report . Pathology Reports Accession: Collected Date/Time: Received Date/Time: Pathologist: [id number] 10/31/2023 10:23 EDT 10/31/2023 14:26 EDT MD KAYLYN PELAYO Final Surgical Pathology Report DIAGNOSIS: A. TERMINAL ILEUM, BIOPSY: - NO SPECIFIC PATHOLOGIC CHANGES - NEGATIVE FOR ILEITIS B. RIGHT LEFT COLON, BIOPSY: - NO SPECIFIC PATHOLOGIC CHANGES - NEGATIVE FOR COLITIS CLINICAL INFORMATION: Procedure: COLONOSCOPY Preoperative diagnosis: RECTAL BLEED Postoperative diagnosis: RECTAL BLEED SPECIMEN: A COLON, BX TERMINAL ILEUM B COLON, BX RIGHT AND LEFT GROSS DESCRIPTION: All parts labelled with patient name and [id number] A. Received in formalin labeled terminal ileum are 2 maharaj-pink tissue fragments each measuring 0.2 cm. TS-1 B. Received in formalin labeled right and left colon are multiple maharaj-pink tissue fragments aggregating 1.3 x 0.2 x 0.2 cm. TS-1 Flakita Rodrigez, Grossing Claim Inspector/ Dr. Nabor Jarrett, Pathologist Performed by Flakita Rodrigez MICROSCOPIC DESCRIPTION: The microscopic examination is performed, except in the case of Gross Only. Electronically Signed by Pathology Report verified by [facility] KAYLYN PELAYO MD Sign out Date: 11/01/2023 09:26 Performing Lab: [facility], [address] [place] [address] States Pathology Dept Disclaimer If ancillary studies were utilized, the following Laboratory Developed Test (LDT) disclaimer will apply: Under CLIA requirements, [facility] is qualified to perform high complexity testing. For all ancillary stains, positive and negative controls stain appropriately. Performance characteristics of immunohistochemical and chromogenic in-situ hybridization tests have been determined by [facility]. These tests are used for clinical purposes, They should not be regarded as investigational or for research. Normal [facility] ([place]) Lipaseon 11-01-2023 Lipase [Catalytic activity/Vol] 32 U/L Normal 13-[address] [facility] Comment on above: Result Comment: Liam rader note:LIPASE revised reference range effective 22.New Lipase methodology. Expected to produce lower valuesthan the previous assay method.NEW Reference Range: 13 - 75 U/L Performed By: #### L 501.2450 ####[facility] [address] [place], [address] ,Serum,hCG Quali.on 11-01-2023 HCG, SERUM QUAL Negative Normal [facility] Comment on above: Performed By: #### L 500.4050, L700.6800, L100.0100 ####[facility] [address] [place], [address] Urinalysis, Completeon 10-31 BACTERIA 2+ /hpf Normal None Seen [facility] Comment on above: Order Comment: CLEAN CATCH Performed By: #### L 400.0001 ####[facility] [address] [place], [address] RBC 0-5 SEEN Normal 0-[address] [facility] Comment on above: Order Comment: CLEAN CATCH Performed By: #### L 400.0001 ####[facility] [address] [place], [address] YEAST 2+ /hpf Normal None Seen [facility] Comment on above: Order Comment: CLEAN CATCH Performed By: #### L 400.0001 ####[facility] [address] [place], [address] EPI,SQUAMOUS 0-5 SEEN Normal 5-[address] [facility] Comment on above: Order Comment: CLEAN CATCH Performed By: #### L 400.0001 ####[facility] [address] [place], [address] Mucus Ql (Urine sed) 0 SEEN Normal [facility] Comment on above: Order Comment: CLEAN CATCH Performed By: #### L 400.0001 ####[facility] [address] [place], [address] WBC 0 SEEN Normal 0-[address] [facility] Comment on above: Order Comment: CLEAN CATCH Performed By: #### L 400.0001 ####[facility] [address] [place], [place], [address] ONC Echo Completeon 09-13-19 24 ONC Echo Complete Normal [facility] Absolute lymphocyte countOrd ered By: Suman Lowe on 07-04-2023 Lymphocytes Auto (Unsp spec) [#/Vol] 1.65 10*3/uL 0.83-4.[address] [facility] Automated lymphocyte count a s percentage of total leukocytesOrdered By: Suman Lowe on 07-04-2023 Lymphocytes/100 WBC Auto (Unsp spec) 19.6 % 19-[address] [facility] Basophil percentageOrdered B y: Suman Lowe on 07-04-2023 Basophil percentage 0-5 SEEN /hpf 0-5 [facility] Basophils/100 WBC (Bld) 0.8 % 0-1 [facility] Bilirubin [Mass/Vol] 0.60 mg/dL 0.20-1.00 [facility] Comment on above: For patients on eltr ombopag therapy, use of Dimension [place] TBIL is not recommended. Chloride [Moles/Vol] 107 mmol/L 98-107 [facility] Eosinophils/100 WBC (Bld) 1.5 % 0-[address] [facility] Glucose [Mass/Vol] 105 mg/dL 74-106 [facility] Comment on above: Fasting Glucose resu lt from 100 to 125 mg/dL suggests IMPAIRED HOMEOSTASIS per A.D.A. criteria. Hemoglobin (Bld) [Mass/Vol] 13.6 g/dL 12.0-15.[address] [facility] Monocytes/100 WBC (Bld) 6.1 % 0-10 [facility] Neutrophils (Bld) [#/Vol] 6.0 10*3/uL 2.0-7.[address] [facility] Neutrophils/100 WBC (Bld) 71.6 % 47-[address] [facility] Potassium [Moles/Vol] 4.0 mmol/L 3.5-5.1 [facility] Comment on above: Moderate Hemolysis, Result may be falsely increased. Protein [Mass/Vol] 7.1 g/dL 6.4-8.2 [facility] Sodium [Moles/Vol] 137 mmol/L 136-145 [facility] WBC (Bld) [#/Vol] 8.4 10*3/uL 4.4-11.0 [facility] Bilirubin Test strip Ql (U)O rdered By: Suman Lowe on 07-04-2023 Bilirubin Ql (U) Negative Negative [facility] Determination of erythrocyte mean corpuscular volume (MCV)Ordered By: Suman Lowe on 07-04-2023 MCV (RBC) [Entitic vol] 97.7 fL 81-99 [facility] Erythrocyte distribution wid th ratioOrdered By: Suman Lowe on 07-04-2023 Erythrocyte distribution width (RBC) [Ratio] 13.2 % 11.6-14.[address] [facility] Erythrocyte distribution wid th standard deviationOrdered By: Suman Lowe on 07-04-2023 Erythrocyte distribution width (RBC) [Entitic vol] 47.3 fL 35.1-43.[address] [facility] Hematocrit Auto (Bld) [Volum e fraction]Ordered By: Suman Lowe on 07-04-2023 Hematocrit (Bld) [Volume fraction] 42.3 % 37-[address] [facility] Immature granulocytes/100 WB C Auto (Bld)Ordered By: Suman Lowe on 07-04-2023 Immature granulocytes/100 WBC (Bld) 0.400 % 0.0-0.[address] [facility] Comment on above: IG% - Immature Granu locytes (promyelocytes, myelocytes and metamyelocytes) > 1% indicates that a LEFT SHIFT is Present. Ketones Test strip Ql (U)Ord ered By: Suman Lowe on 07-04-2023 Ketones Ql (U) Negative Negative [facility] Laboratory - Chemistry and C hemistry - challengeOrdered By: Suman Lowe on 07-04-2023 Albumin/Globulin [Mass ratio] 1.2 {ratio} 0.9-2.[address] [facility] ALP [Catalytic activity/Vol] 97 U/L 45-[address] [facility] ALT [Catalytic activity/Vol] 29 U/L 13-[address] [facility] CO2 [Moles/Vol] 24.0 mmol/L 21.0-32.[address] [facility] Globulin (S) [Mass/Vol] 3.2 g/dL 2.2-4.2 [facility] Lipase [Catalytic activity/Vol] 16 U/L 13-[address] [facility] Comment on above: Please note:LIPASE r evised reference range effective 22. New Lipase methodology. Expected to produce lower values than the previous assay method. NEW Reference Range: 13 - 75 U/L Urea nitrogen/Creatinine [Mass ratio] 11.1 mg/mg 10-[address] [facility] Laboratory - Hematology and Cell countsOrdered By: Suman Lowe on 07-04-2023 MCH (RBC) [Entitic mass] 31.4 pg 27.0-32.[address] [facility] MCHC (RBC) [Mass/Vol] 32.2 g/dL 32-36 [facility] Nucleated RBC/100 WBC (Bld) [Ratio] 0 % 0-[address] [facility] Platelet mean volume (Bld) [Entitic vol] 12.0 fL 6.2-12.[address] [facility] Platelets (Bld) [#/Vol] 195 10*3/uL 150-[address] [facility] Mucus LM Ql (Urine sed)Order ed By: Suman Lowe on 07-04-2023 Mucus Ql (Urine sed) 0 SEEN /hpf [facility] Nitrite Test strip Ql (U)Ord ered By: Suman Lowe on 07-04-2023 Nitrite Ql (U) Negative Negative [facility] No Panel InformationOrdered By: Suman Lowe on 07-04-2023 Urine RBC 10-25 SEEN /hpf 0-[address] [facility] Estimated Creatinine Clearance Calc 77.33 ml/min [facility] Estimated GFR (MDRD) Amer 99 mL/min >[address] [facility] Comment on above: GFR Calc Estimated GFR (MDRD) Non-Af Amer 82 mL/min >[address] [facility] Comment on above: Non- GFR Calc Protein Test strip Ql (U)Ord ered By: Suman Lowe on 07-04-2023 Protein Ql (U) 15 mg/dl Negative [facility] RBC Auto (Bld) [#/Vol]Ordere d By: Suman Lowe on 07-04-2023 RBC (Bld) [#/Vol] 4.33 10*6/uL 4.2-5.4 [facility] Serum or plasma calcium leslie urement (mass/volume)Ordered By: Suman Lowe on 07-04-2023 Calcium [Mass/Vol] 8.9 mg/dL 8.5-10.1 [facility] Serum or plasma choriogonado tropin detectionOrdered By: Suman Lowe on 07-04-2023 HCG ( test) Ql Negative [facility] Serum or plasma creatinine m easurement (mass/volume)Ordered By: Suman Lowe on 07-04-2023 Creatinine [Mass/Vol] 0.81 mg/dL 0.55-1.02 [facility] Comment on above: The validity of the calculated GFR & GFRAA in patients over 70 years has not been determined. Clinical correlation is essential. Serum or plasma urea nitroge n measurement (mass/volume)Ordered By: Suman Lowe on 07-04-2023 Urea nitrogen [Mass/Vol] 9 mg/dL 7-[address] [facility] Squamous epithelial cells de tection in urine sediment by light microscopyOrdered By: Suman Lowe on 07-04-2023 Epithelial cells.squamous LM Ql (Urine sed) 0-5 SEEN /hpf 5-[address] [facility] Thin prep Papanicolaou smear with manual screeningOrdered By: Suman Lowe on 07-04-2023 Thin prep Papanicolaou smear with manual screening 3.9 g/dL 3.2-5.[address] [facility] Thin prep Papanicolaou smear with manual screening 24 U/L 15-[address] [facility] Comment on above: Moderate Hemolysis, Result may be falsely increased. Thin prep Papanicolaou smear with manual screening 6 5-[address] [facility] Urine blood detectionOrdered By: Suman Lowe on 07-04-2023 RBC Ql (U) 150 /ul Negative [facility] Urine clarityOrdered By: Malgorzata Lowe on 07-04-2023 Clarity (U) Clear Clear [facility] Urine color determinationOrd ered By: Suman Lowe on 07-04-2023 Color (U) Yellow Yellow [facility] Urine glucose detectionOrder ed By: Suman Lowe on 07-04-2023 Glucose Ql (U) Normal mg/dl Normal [facility] Urine leukocyte esterase det ection by dipstickOrdered By: Suman Lowe on 07-04-2023 Leukocyte esterase Test strip Ql (U) 25 /ul Negative [facility] Urine pHOrdered By: Suman maya on 07-04-2023 pH (U) 7.0 [pH] 5.0 - 8.[address] [facility] Urine sediment bacteria coun t by microscopy (number/high power field)Ordered By: Suman Lowe on 07-04-2023 Bacteria LM.HPF (Urine sed) [#/Area] RARE /hpf None Seen [facility] Urine specific gravity measu rementOrdered By: Suman Lowe on 07-04-2023 Specific gravity (U) [Rel density] 1.010 1.002-1.[address] [facility] Urine urobilinogen measureme ntOrdered By: Suman Lowe on 07-04-2023 Urobilinogen Ql (U) Normal mg/dl Normal [facility] No Panel InformationOrdered By: Babar Wood on 12-26-2022 Troponin I High Sensitivity 48 pg/mL 3.0-54.[address] [facility] Comment on above: Please Note: New Linh t Units and Gender Specific Reference Ranges. For more information see Policy Stat Procedure [place] High Sensitivity Troponin (TNIH) and attachments. Absolute lymphocyte countOrd ered By: Babar Wood on 12-25-2022 Lymphocytes Auto (Unsp spec) [#/Vol] 1.77 10*3/uL 0.83-4.[address] [facility] Basophil percentageOrdered B y: Babar Wood on 12-25-2022 Basophils/100 WBC (Bld) 0.6 % 0-1 [facility] Chloride [Moles/Vol] 110 mmol/L 98-107 [facility] Eosinophils/100 WBC (Bld) 1.1 % 0-[address] [facility] Glucose [Mass/Vol] 100 mg/dL 74-106 [facility] Comment on above: Fasting Glucose resu lt from 100 to 125 mg/dL suggests IMPAIRED HOMEOSTASIS per A.D.A. criteria. Neutrophils (Bld) [#/Vol] 9.1 10*3/uL 2.0-7.[address] [facility] Neutrophils/100 WBC (Bld) 78.0 % 47-[address] [facility] Potassium [Moles/Vol] 4.2 mmol/L 3.5-5.1 [facility] Comment on above: Slight Hemolysis, Re sult may be falsely increased. Sodium [Moles/Vol] 140 mmol/L 136-145 [facility] WBC (Bld) [#/Vol] 11.7 10*3/uL 4.4-11.0 [facility] Blood erythrocytes count (nu mber/volume)Ordered By: Babar Wood on 12-25-2022 RBC (Bld) [#/Vol] 4.15 10*6/uL 4.2-5.4 [facility] Blood hemoglobin measurement (mass/volume)Ordered By: Babar Wood on 12-25-2022 Hemoglobin (Bld) [Mass/Vol] 13.1 g/dL 12.0-15.[address] [facility] Blood lymphocytes/100 leukoc ytesOrdered By: Babar Wood on 12-25-2022 Lymphocytes/100 WBC (Bld) 15.2 % 19-[address] [facility] Blood monocytes/100 leukocyt esOrdered By: Babar Wood on 12-25-2022 Monocytes/100 WBC (Bld) 4.8 % 0-10 [facility] Blood platelet mean volumeOr dered By: Babar Wood on 12-25-2022 Platelet mean volume (Bld) [Entitic vol] 10.7 fL 6.2-12.[address] [facility] Determination of erythrocyte mean corpuscular volume (MCV)Ordered By: Babar Wood on 12-25-2022 MCV (RBC) [Entitic vol] 97.3 fL 81-99 [facility] Hematocrit Auto (Bld) [Volum e fraction]Ordered By: Babar Wood on 12-25-2022 Hematocrit (Bld) [Volume fraction] 40.4 % 37-[address] [facility] INR in Blood by Coagulation assayOrdered By: Babar Wood on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 Note Patient Name: Michelle Mitchell Patient Location: /10-13 0929 Pt sitting up in bed, c/o chest pain, however denies dizziness, 98% room air. Administered Tylenol and Xanax as ordered, however pt is sobbing stating, feels like someone sitting on my chest. Released STAT EKG, vital signs obtained. BP 112/68, HR 75, respirations 20, 99% room air. [address] Andrea per pt request and stating, my chest pain is still 09/20. Can you please page Dr. Mullins again? While in with pt's roommate, bed 1, pt was sleeping in bed, woke up while we were in the room then began to grunt and andi then made her statement. Pt now sitting in bed waiting to hear back from the doctors. 1605 Called into pt's room requesting pain medicine or to see if anything else was ordered. Educated pt regarding Tylenol ordered and the Lidocaine patch, but that was it. Pt stated, that doctor lied to me. They said if I stayed one more day that I would get pain relieve; all they ordered was Tylenol and a patch. The patch does not do anything for me. Pt previously refused the Lidocaine patch. Pt started to cry. Pt also stated I miss my family, I haven't showered in a couple days. I educated pt that we could get her a shower. Pt stated, I don't have underwear. Educated pt that we have mesh panties that we can give her. Pt stated I have on the same pants on since I got here. Educated pt that we could provide her with hospital pj bottoms. Attempting to provide everything the pt needs. This note was completed by: Kendal Strange Normal [facility] Troponin Ton 04-26-2021 Troponin T.cardiac [Mass/Vol] 0.023 ug/L Normal 0.000-0.02 9 [facility] Comment on above: Performed By: #### C KCKMB, SAULO #### [facility] [address] [place] [address] CBC and Differentialon 04-25 Abs Baso 0.06 k/uL Normal <0.11 [facility] Comment on above: Performed By: #### T NT, CBCDIF, CMP ####[facility] [place], [place] [id number] Abs [place] 0.72 k/uL Normal <0.87 [facility] Comment on above: Performed By: #### T NT, CBCDIF, CMP ####[place] [phone] Abs Neut 7.11 k/uL Normal 1.45-7.50 [facility] Comment on above: Performed By: #### T NT, CBCDIF, CMP ####[place] [phone] Absolute nRBC <0.01 Normal <0.01 [facility] Comment on above: Performed By: #### T NT, CBCDIF, CMP ####[place] [phone] Basophils/100 WBC (Bld) 0.6 % Normal [facility] Comment on above: Performed By: #### T NT, CBCDIF, CMP ####[place] [phone] DTYPE Auto Diff Normal [facility] Comment on above: Performed By: #### T NT, CBCDIF, CMP ####[place] [phone] Eosinophils (Bld) [#/Vol] 0.10 10*3/uL Normal <0.46 [facility] Comment on above: Performed By: #### T NT, CBCDIF, CMP ####[place] [phone] Eosinophils/100 WBC (Bld) 1.0 % Normal [facility] Comment on above: Performed By: #### T NT, CBCDIF, CMP ####[place] [phone] Erythrocyte distribution width (RBC) [Ratio] 13.5 % Normal 11.5-15.0 [facility] Comment on above: Performed By: #### T NT, CBCDIF, CMP ####[place] [phone] Hematocrit (Bld) [Volume fraction] 38.0 % Normal 36.0-46.0 [facility] Comment on above: Performed By: #### T NT, CBCDIF, CMP ####[place] [phone] Hemoglobin (Bld) [Mass/Vol] 11.9 g/dL Normal 11.5-15.5 [facility] Comment on above: Performed By: #### T NT, CBCDIF, CMP ####[place] [phone] Lymphocytes (Bld) [#/Vol] 1.73 10*3/uL Normal 1.00-4.00 [facility] Comment on above: Performed By: #### T NT, CBCDIF, CMP ####[place] [phone] Lymphocytes/100 WBC (Bld) 17.8 % Normal [facility] Comment on above: Performed By: #### T NT, CBCDIF, CMP ####[place] [phone] MCH 30.7 pG Normal 26.0-34.0 [facility] Comment on above: Performed By: #### T NT, CBCDIF, CMP ####[place] [phone] MCHC (RBC) [Mass/Vol] 31.3 g/dL Normal 30.5-36.0 [facility] Comment on above: Performed By: #### T NT, CBCDIF, CMP ####[place] [phone] MCV (RBC) [Entitic vol] 98.2 fL Normal 80.0-100.0 [facility] Comment on above: Performed By: #### T NT, CBCDIF, CMP ####[place] [phone] Monocytes/100 WBC (Bld) 7.4 % Normal [facility] Comment on above: Performed By: #### T NT, CBCDIF, CMP ####[place] [phone] Neutrophils/100 WBC (Bld) 73.2 % Normal [facility] Comment on above: Performed By: #### T NT, CBCDIF, CMP ####[place] [phone] NRBCs 0.0 /100 WBC Normal 0 [facility] Comment on above: Performed By: #### T NT, CBCDIF, CMP ####[place] [phone] Platelet mean volume (Bld) [Entitic vol] 12.5 fL Normal 9.0-12.7 [facility] Comment on above: Performed By: #### T NT, CBCDIF, CMP ####[place] [phone] Platelets (Bld) [#/Vol] 192 10*3/uL Normal 150-400 [facility] Comment on above: Performed By: #### T NT, CBCDIF, CMP ####[place] [phone] RBC (Bld) [#/Vol] 3.87 10*6/uL Low 3.90-5.20 [facility] Comment on above: Performed By: #### T NT, CBCDIF, CMP ####[place] [phone] WBC (Bld) [#/Vol] 9.72 10*3/uL Normal 3.70-11.00 [facility] Comment on above: Performed By: #### T NT, CBCDIF, CMP ####[place] [phone] CK, Total and CKMBon 022 CK [Catalytic activity/Vol] 65 U/L Normal 30-220 [facility] Comment on above: Performed By: #### T NT, CKCKMB ####[place] [phone] CK MB % CK MB % not reported with CK <100 U/L. Normal 0.0-4.0 [facility] Comment on above: Performed By: #### T NT, CKCKMB ####[address] [place], [place] [phone] MB 3.5 ng/mL Normal 0.0-8.8 [facility] Comment on above: Performed By: #### T NT, CKCKMB ####[facility] [place], [place] [phone] CONSULTon 04-25-2021 CONSULT HNO ID: [id number] Author: Gavino Zaragoza MD Service: Cardiovascular Medicine Author Type: Physician Type: Consults Filed: 04/25/2021 6:10 PM Note Text: [facility] CARDI[facility]ULAR [facility]ICINE CONSULT NOTE (Template ID [id number]) Michelle Mitchell [id number] PRIMARY SERVICE: Internal Medicine CONSULTING SERVICE: Cardiovascular Medicine: General Consults DATE OF ADMISSION: 04/25/2021 DATE OF CONSULT: 04/25/2021 REASON FOR CONSULT NSTEMI HISTORY OF PRESENT ILLNESS Mrs. Michelle Mitchell 40 year old female with medical history of pericarditis, CHF, chronic chest pain, breast CA (s/p L mastectomy), HCM (s/p ICD in 2006, lead revision 2008, explant/reimplant 10/19/2016), PE 2016, peptic ulcer disease, and GERD, presents to the ED with complaints of pleuritic chest pain, states warps around her back. Also complaints of shortness of breath which has been present since , however chest pain started yesterday. Of note she states symptoms are similar to what she has had in the past when she had fluid in her lungs. In the [facility] ED noted marginally elevated high sensitivity troponin, concerns for NSTEMI, therefore was transferred to [facility] for further evaluation of symptoms. 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 Developed dyspnea over the past week, at NYHA III class. PAST MEDICAL HISTORY PAST MEDICAL HISTORY Diagnosis Date - Breast cancer (HCC) Age 17 treated with radiation, lumpectomy and masectomy - CIS (carcinoma in situ of cervix) - Colon polyp 07/2015 - Congestive heart failure (HCC) HOCM - DVT (deep venous thrombosis) (HCC) - Endometrial cancer (HCC) treated with ablation - Gastroesophageal reflux disease 08/17/2017 - GERD (gastroesophageal reflux disease) - Hypertr obst cardiomyop - ICD (implantable cardiac defibrillator) battery depletion - Kidney stone - Migraine - Ovarian epithelial cancer (HCC) This diagnosis unlikely as both ovaries present 05/09/2018 laparoscopy - Pericarditis - PUD (peptic ulcer disease) - Pulmonary embolism (HCC) 11/2016 - Vaginal Pap smear with ASC-US 12/2016 PAST SURGICAL HISTORY Procedure Laterality Date - ANES PERMANENT TRANSVENOUS PACEMAKER INSERTION 2006 ICD implant, [facility] - ANESTHESIA TUBAL LIGATION/TRANSECTION - APPENDECTOMY 05/05/2014 , lap - BREAST LUMPECTOMY HX Left 1997 with radiation - CHOLECYSTECTOMY HX 08/2010 lap - COLONOSCOPY AND POLYPECTOMY 08/07/2015 - CONIZATION CERVIX W/WO DANDC RPR KNIFE/LASER CIS - EGD 08/25/2017 Tabbaa- normal - ENDOMETRIAL ABLATION WITH US GUIDANCE for abnormal uterine bleeding - EXCISION OF CYST 08/23/2017 Dr. Velasco Excision of sebaceous cyst - IMPLANTABLE CARDIAC DEFIB ICD 02/2009, 10/19/2016 - LAPAROSCOPY DIAGNOSTIC 07/21/2015 Lysis of adhesions, - MIDLINE INSERTION/CONSULT 01/18/2017 - PAST SURGICAL HISTORY OF 05/24/2014 Laparoscopy, FAMILY HISTORY FAMILY HISTORY Problem Relation Age of Onset - Heart Mother heart valve replaced, was in a car accident in early age - Breast Cancer Mother dx age 50 - DVT Mother - Heart Father IHSS, CHF, HOCM - other (Paternal half-sister) Sister Paternal half-sister; on transplant list - other (HOCM) Sister - Heart Paternal Grandmother stroke, at age 43 - Heart Paternal Grandfather at age 45 - Heart Paternal Aunt at age 27 - Heart Paternal Aunt at age 29 - Cancer Sister 20 Brain - Breast Cancer Sister 28 - Colon Cancer Sister 26 - DVT Sister - Heart Sister Reported HOCM, heart transplant at 34 SOCIAL HISTORY Social History Tobacco Use - Smoking status: Current Every Day Smoker Packs/day: 0.25 Years: 15.00 Pack years: 3.75 Types: Cigarettes Start date: 03/14/1982 - Smokeless tobacco: Never Used - Tobacco comment: since age 12 yrs Vaping Use - Vaping Use: Never used Substance Use Topics - Alcohol use: No - Drug use: No HOME MEDICATIONS ALPRAZolam (XANAX) 0.5 mg tablet Take 0.5 mg by mouth twice daily. potassium chloride ER (K-DUR, KLOR-CON) 20 mEq tablet Take 1 tablet by mouth once daily. albuterol HFA (VENTOLIN HFA) 90 mcg/actuation inhaler Inhale 2 Puffs as instructed. rivaroxaban (XARELTO) 20 mg tablet Take 1 tablet by mouth daily with dinner. zolpidem (AMBIEN) 10 mg Tab Take 10 mg by mouth at bedtime as needed. INPATIENT MEDICATIONS Current Facility-Administered Medications Medication Dose Route Frequency - NaCl 0.9% iv flush bag 20 mL INTRAVENOUS PRN - zolpidem 10 mg tab(s) (AMBIEN) 10 mg ORAL HS PRN - ALPRAZolam 0.5 mg tab(s) (XANAX) 0.5 mg ORAL BID - sodium chloride 0.9 % (flush) 2-10 mL (BD POSIFLUSH) 2-10 mL INTRAVENOUS q 12 H - atropine 0.4 mg injection 0.4 mg INTRAVENOUS PRN(NO DISPENSE) - sodium chloride 0.9 % (flush) 3-5 mL (BD POSIFLUSH) 3-5 mL INTRAVENOUS q 12 H - sodium chloride 0.9 % (flush) 2-10 mL (BD (more content not included)... Normal [facility] Comp Metabolic Panelon 04-25 Albumin [Mass/Vol] 4.1 g/dL Normal 3.5-5.0 [facility] Comment on above: Performed By: #### T NT, CBCDIF, CMP ####[address] [phone] ALP [Catalytic activity/Vol] 131 U/L High 34-123 [facility] Comment on above: Performed By: #### T NT, CBCDIF, CMP ####[address] [phone] ALT [Catalytic activity/Vol] 30 U/L Normal 0-45 [facility] Comment on above: Performed By: #### T NT, CBCDIF, CMP ####[address] [phone] Anion gap [Moles/Vol] 12 mmol/L Normal 9-18 [facility] Comment on above: Performed By: #### T NT, CBCDIF, CMP ####[place] [phone] AST [Catalytic activity/Vol] 26 U/L Normal 7-40 [facility] Comment on above: Performed By: #### T NT, CBCDIF, CMP ####[place] [phone] Bilirubin [Mass/Vol] 1.0 mg/dL Normal 0.2-1.3 [facility] Comment on above: Performed By: #### T NT, CBCDIF, CMP ####[place] [phone] Calcium [Mass/Vol] 9.1 mg/dL Normal 8.5-10.5 [facility] Comment on above: Performed By: #### T NT, CBCDIF, CMP ####[place] [phone] Chloride [Moles/Vol] 103 mmol/L Normal 98-110 [facility] Comment on above: Performed By: #### T NT, CBCDIF, CMP ####[place] [phone] CO2 [Moles/Vol] 23 mmol/L Normal 23-32 [facility] Comment on above: Performed By: #### T NT, CBCDIF, CMP ####[place] [phone] Creatinine [Mass/Vol] 0.71 mg/dL Normal 0.70-1.40 [facility] Comment on above: Performed By: #### T NT, CBCDIF, CMP ####[place] [phone] eGFR- Amer. >60 Normal >59 [facility] Comment on above: Performed By: #### T NT, CBCDIF, CMP ####[address] [phone] eGFR-All Other Races >60 Normal >59 [facility] Comment on above: Result Comment: eGFR (Estimated GFR) Units of measure: mL/min/1.73 meters squared eGFR is derived from the reexpressed MDRD Study equation using the following parameters: serum creatinine, age, gender and race. The creatinine assay has been calibrated to be traceable to IDMS. An eGFR <60 mL/min/1.73m2 for >3 months is consistent with chronic kidney disease. Refer to KDOQI guidelines for clinical interpretation. In patients with unstable renal function, e.g. those with acute kidney injury, the eGFR may not accurately reflect actual GFR. Note: On 05/09/2021, the eGFR calculation will be updated to the NKF-ASN Task Force recommended 2020 CKD-EPI creatinine equation which does not include a race variable. For more information or to access a 2020 CKD-EPI calculator, visit the National Kidney Foundation website at kidney.org/professionals/kdoqi/gfr_calculator. Performed By: #### T NT, CBCDIF, CMP ####[place] [phone] Glucose [Mass/Vol] 92 mg/dL Normal 65-100 [facility] Comment on above: Performed By: #### T NT, CBCDIF, CMP ####[place] [phone] Potassium [Moles/Vol] 3.7 mmol/L Normal 3.5-5.0 [facility] Comment on above: Performed By: #### T NT, CBCDIF, CMP ####[place] [phone] Protein [Mass/Vol] 6.6 g/dL Normal 6.0-8.4 [facility] Comment on above: Performed By: #### T NT, CBCDIF, CMP ####[place] [phone] Sodium [Moles/Vol] 138 mmol/L Normal 132-148 [facility] Comment on above: Performed By: #### T NT, CBCDIF, CMP ####[facility] [place], [place] [phone] Urea nitrogen [Mass/Vol] 4 mg/dL Low 11-05 [facility] Comment on above: Performed By: #### T NT, CBCDIF, CMP ####[facility] [place], [place] [phone] HISTORY PHYSICALon HISTORY PHYSICAL HNO ID: [id number] Author: jA Mullins MD Service: Hospital Medicine Author Type: Physician Type: HANDP Filed: 04/25/2021 5:40 PM Note Text: INTERNAL MEDICINE HANDP EXAMINATION SERVICE DATE: 04/25/2021 SERVICE TIME: 8:11 AM PRIMARY CARE PHYSICIAN: Dex Sutherland MD Subjective CHIEF COMPLAINT: Chest pain and SOB of 6 hours and a half prior to ED presentation HISTORY OF PRESENT ILLNESS: Ms. Mitchell is a 40 year old female patient, PMHx HOCM (on ICD), Unprovoked PE in 2017 (stopped taking Rivaroxaban 1 year ago due to its cost), BRCA-2 mutation carrier, Left Breast Ca diagnosed in ~1997 (s/p mastectomy, chemotherapy, and radiotherapy) with subsequent recurrence ~8 years later (s/p lumpectomy and chemotherapy), Endometrial Ca (s/p ablation and chemotherapy), Cervical Ca (s/p conization), Ovarian Ca (s/p oophorectomy), and Anxiety. She presented with a few hours hx of SOB followed by chest pain. Patient's hx dates back to yesterday around 15:00 when she was driving and then gradually started to c/o SOB followed by central chest pain. Her symptoms have been continuous since then. Her chest pain started centrally and then started radiating to the right side of her back while passing the right chest wall. It's of pressure sensation feeling like sandra elephant is sitting on my chest and exacerbated by deep inspiration and moving in her bed. No relieving factors were identified. Her symptoms also included dizziness, headache, right jaw pain, and nausea without vomiting. She otherwise denies palpitations, bilateral LE swelling, feeling of hotness, chills, and diarrhea. She works in [employer]. She used to be a smoker of 1 PPD for many years, but recently she has been smoking only 1 cigarette per day. She also denies drinking alcohol and illicit substance use. ED COURSE: BP 121/64, HR 79, Afebrile, Tachypnic at 24 while O2 Sat 99% on RA EKG: NSR, no ST segment depression or elevation HS-SAULO 58 > 55 CBC remarkable only for WBCs 13.26 with absolute neutrophilia CMP remarkable for ALP 157, AST 37, K 3.6 Mg 1.9 Pro-BNP 2314 Lipase 8 (below normal) ASA 324mg, Enoxaparin 60mg, Metoclopramide 10mg, and Diphenhydramine 25mg given. CXR: 1. Interstitial opacities favoring pulmonary edema. 2. Moderate size right pleural effusion and small left pleural effusion. Bibasilar atelectasis. CT with PE protocol: 1. ?Negative for acute pulmonary embolism. 2. ?Features of volume overload/heart failure, with small bilateral pleural effusions, moderate to severe interstitial pulmonary edema and body wall anasarca. The patient was then transferred and admitted to [facility] for further evaluation and management. PAST MEDICAL HISTORY Diagnosis Date - Breast cancer (HCC) Age 17 treated with radiation, lumpectomy and masectomy - CIS (carcinoma in situ of cervix) - Colon polyp 07/2015 - Congestive heart failure (HCC) HOCM - DVT (deep venous thrombosis) (HCC) - Endometrial cancer (HCC) treated with ablation - Gastroesophageal reflux disease 08/17/2017 - GERD (gastroesophageal reflux disease) - Hypertr obst cardiomyop - ICD (implantable cardiac defibrillator) battery depletion - Kidney stone - Migraine - Ovarian epithelial cancer (HCC) This diagnosis unlikely as both ovaries present 05/09/2018 laparoscopy - Pericarditis - PUD (peptic ulcer disease) - Pulmonary embolism (HCC) 11/2016 - Vaginal Pap smear with ASC-US 12/2016 PAST SURGICAL HISTORY Procedure Laterality Date - ANES PERMANENT TRANSVENOUS PACEMAKER INSERTION 2006 ICD implant, [facility] - ANESTHESIA TUBAL LIGATION/TRANSECTION - APPENDECTOMY 05/05/2014 , lap - BREAST LUMPECTOMY HX Left 1997 with radiation - CHOLECYSTECTOMY HX 08/2010 lap - COLONOSCOPY AND POLYPECTOMY 08/07/2015 - CONIZATION CERVIX W/WO DANDC RPR KNIFE/LASER CIS - EGD 08/25/2017 Tabbaa- normal - ENDOMETRIAL ABLATION WITH US GUIDANCE for abnormal uterine bleeding - EXCISION OF CYST 08/23/2017 Dr. Velasco Excision of sebaceous cyst - IMPLANTABLE CARDIAC DEFIB ICD 02/2009, 10/19/2016 - LAPAROSCOPY DIAGNOSTIC 07/21/2015 Lysis of adhesions, - MIDLINE INSERTION/CONSULT 01/18/2017 - PAST SURGICAL HISTORY OF 05/24/2014 Laparoscopy, FAMILY HISTORY Problem Relation Age of Onset - Heart Mother heart valve replaced, was in a car accident in early age - Breast Cancer Mother dx age 50 - DVT Mother - Heart Father IHSS, CHF, HOCM - other (Paternal half-sister) Sister Paternal half-sister; on transplant list - other (HOCM) Sister - Heart Paternal Grandmother stroke, at age 43 - Heart Paternal Grandfather at age 45 - Heart Paternal Aunt at age 27 - Heart Paternal Aunt at age 29 - Cancer Sister 20 Brain - Breast Cancer Sister 28 - Colon Cancer Sister 26 - DVT Sister - Heart Sister Reported HOCM, (more content not included)... Normal [facility] Hemoglobin A1con 04-25-2021 Glucose [Mass/Vol] 103 mg/dL Normal [facility] Comment on above: Result Comment: eAG: (Estimated average glucose) is a calculated value from HgbA1c and is industrial sales representative of the average blood glucose level in the last 2-3 month period. Performed By: #### T SH #### [facility] [address] [place] [address] #### HBA1C #### [facility] [address] [place] [address] HbA1c (Bld) [Mass fraction] 5.2 % Normal 4.3-5.6 [facility] Comment on above: Result Comment: Amer ican Diabetes Association guidelines indicate that patients with HgbA1c in the range 5.7-6.4% are at increased risk for development of diabetes, and intervention by lifestyle modification may be beneficial. HgbA1c greater or equal to 6.5% is considered diagnostic of diabetes. Performed By: #### T SH #### [facility] [address] [place] [address] #### HBA1C #### [facility] [address] [place], [place] [address] NT Pro BNPon 04-25-2021 PRO B Natr Peptide 1979 pg/mL High <125 [facility] Comment on above: Performed By: #### N TBNP #### [facility] [address] [place] [address] NURSING PROGon 04-25-2021 NURSING PROG HNO ID: [id number] Author: Vance Everett RN Service: ? Author Type: Registered Nurse Type: Nursing Progress Note Filed: 04/25/2021 9:39 PM Note Text: Nursing Progress Note Patient Name: Michelle Mitchell [id number] Daily Note: paged hospitalist Michelle Mitchell, 5 pav [phone], pt requesting something stronger for pain than Tylenol. Per pt, Susanna withheld morphine d/t low BP, now 115/60. Dontrell -Devonte [phone] Resident requested attempting another dose of tylenol instead of an alternative, and to page back if tylenol ineffective. Tylenol administered. 2127 - Michelle Mitchell, 5 pav 558-2, pt given Tylenol an hour ago, still no pain relief, 11/21 per patient. Patient requesting alternative pain medication. Thanks -Devonte [phone] This note was completed by: Vance Everett [facility] NURSING PROG HNO ID: [id number] Author: Kendal Strange RN Service: ? Author Type: Registered Nurse Type: Nursing Progress Note Filed: 04/25/2021 1:22 PM Note Text: Nursing Progress Note Patient Name: Michelle Mitchell Patient [id number][facility] 0949 Pt resting in bed, denies dizziness or SOB, however pt stated she had chest pain rated 3/10 at this time. Educated pt regarding updated diet, regular diet ordered, called and requested for pt. 1315 Dr. Mullins at bedside to see pt with this nurse. Pt stated, I got Morphine at [facility] and it helped my pain a lot. Dr. Mullins educated pt regarding tests that were ordered or completed and that she is not ordering Morphine due to blood pressure being low and Tylenol will be ordered. 1320 Pt started sobbing once Dr. Mullins left the room and advised her that she was not ordering Morphine. This note was completed by: Kendal Thibodeaux [facility] NURSING PROG HNO ID: [id number] Author: Sabrina Barbosa RN Service: ? Author Type: Registered Nurse Type: Nursing Progress Note Filed: 04/25/2021 6:53 AM Note Text: Nursing Progress Note Patient Name: Michelle Mitchell Patient Location: [place] [address]/[address]-[facility] 10-13 Daily Note: Paged hospitalist admit pager 5PAV rm [phone] Michelle Mitchell. Pt is c/o 8/10 chest/jaw pain. can she get something? thanks, rose ext [phone] Prn nitro was ordered, pt refused. States it does not help her and will give her a migraine and make her feel worse. Pt did receive morphine at [facility] and stated that it helped with her pain then. Morphine is listed on allergy list but she states that it's not a true allergy. Paged hospitalist admit pager 5PAV rm [phone] Michelle Mitchell. Pt refusing nitro, had morphine at [facility] says it helped and isn't a true allergy. Rose ext [phone] This note was completed by: Sabrina [facility] NURSING PROG HNO ID: [id number] Author: Sabrina Barbosa RN Service: ? Author Type: Registered Nurse Type: Nursing Progress Note Filed: 04/25/2021 6:00 AM Note Text: Nursing Progress Note Patient Name: Michelle Mitchell Patient Location: [place] [address]/[place] [address] 10-13 Transfer Note: Patient transferred into room/unit 558-2 in stable condition. Actions taken: No futher actions taken at this time. Will continue to monitor and check with patient. This note was completed by: Sabrina [facility] TSHon 04-25-2021 TSH Qn 3.510 m[IU]/L Normal 0.270-4.20 0 [facility] Comment on above: Result Comment: If t he patient is , TSH reference range varies by gestational period: First Trimester (weeks 9-12): 0.180-2.990 mcIU/mL Second Trimester: 0.110-3.980 mcIU/mL Third Trimester: 0.480-4.710 mcIU/mL Bacilio Lay et al. A Practical Approach for the Verifications and Determination of Site- and Trimester-Specific Reference Intervals for Thyroid Function tests in . Thyroid, 2019:29:3:412-420. Lopez Recio, et al. 2017 Guidelines of the [place] Thyroid Association for the Diagnosis and Management of Thyroid Disease during and the . Thyroid, 2017:27:3:315-389. Performed By: #### T SH #### [facility] [address] [place] [address] #### HBA1C #### [facility] [address] [place], [place] [address] Troponin Ton 04-25-2021 Troponin T.cardiac [Mass/Vol] 0.028 ug/L Normal 0.000-0.[address] [place] [address] Comment on above: Performed By: #### T NT #### [address] [address] Troponin T.cardiac [Mass/Vol] 0.026 ug/L Normal 0.000-0.[address] [place] [address] Comment on above: Performed By: #### T NT ####[place] [phone] Troponin T.cardiac [Mass/Vol] 0.029 ug/L Normal 0.000-0.[address] [place] [address] Comment on above: Performed By: #### T NT, CKCKMB ####[place] [phone] Troponin T.cardiac [Mass/Vol] 0.028 ug/L Normal 0.000-0.[address] [place] [address] Comment on above: Performed By: #### T NT, CBCDIF, CMP ####[place] [phone] XR ANKLE 3V AP/LAT/OBL RTon 11-04-2020 XR ANKLE 3V AP/LAT/OBL RT * * *Final Report* * * DATE OF EXAM: Nov 04 2020 12:50AM LDX 5297 - XR ANKLE 3V AP/LAT/OBL RT / PROCEDURE REASON: Ankle pain, initial exam * * * * Physician Interpretation * * * * TECHNIQUE: 3 views of the right ankle. DATE:11/04/2020 1:46 AM COMPARISON: No prior studies are available for comparison. CLINICAL INDICATION:Ankle pain, initial exam . Adult ER patient presented with right ankle pain. RESULTS: No acute fracture lucency or dislocation. No sizable ankle joint effusion is detected. No metallic radiopaque foreign body, calcifications or focal osteolysis. The visualized joint spaces appear preserved. The Achilles tendon silhouette appears preserved with no opacification of Kager 's fat pad. The subtalar joint is preserved. The ankle mortise and the medial clear space are preserved. IMPRESSION: No dislocation or acute fracture lucency detected. Assembly Department Supervisor: PSCB Transcribe Date/Time: Nov 04 2020 1:46A Dictated by : SHAKIRA LOVETT MD This examination was interpreted and the report reviewed and electronically signed by: SHAKIRA LOVETT MD on Nov 04 2020 1:47AM EST [id number] Normal [facility] Bacteria Bld Culton 09-19-19 21 Bacteria identified Cx Nom (Bld) CULTURE, BLOOD: No growth 5 days Normal [facility] Comment on above: Performed By: #### 6 00-7 #### [facility] CLIA [id number] [address] [place] [address] Bacteria identified Cx Nom (Bld) CULTURE, BLOOD: No growth 5 days Normal [facility] Comment on above: Performed By: #### 6 00-7 #### [facility] CLIA [id number] [address] [place] [address] CBC W Auto Differential pane l (Bld)on 09-18-2020 Basophils (Bld) [#/Vol] 0.03 10*3/uL Normal <0.11 [facility] Comment on above: Order Comment: Speci men Type: BLOOD SPECIMEN Performed By: #### 2 4323-8 #### [facility] [place] [facility] CLIA [id number] [address] [place] [address] [place] Basophils/100 WBC (Bld) 0.3 % Normal A [facility] Comment on above: Order Comment: Speci men Type: BLOOD SPECIMEN Performed By: #### 2 4323-8 #### [facility] [place] [facility] CLIA [id number] [address] [place] [address] [place] Differential cell count method Nom (Bld) Auto Normal [facility] Comment on above: Order Comment: Speci men Type: BLOOD SPECIMEN Performed By: #### 2 4323-8 #### [facility] [place] [facility] CLIA [id number] [address] [place] [address] [place] Eosinophils (Bld) [#/Vol] 0.06 10*3/uL Normal <0.46 [facility] Comment on above: Order Comment: Speci men Type: BLOOD SPECIMEN Performed By: #### 2 4323-8 #### [facility] [place] [facility] CLIA [id number] [address] [place] [address] [place] Eosinophils/100 WBC (Bld) 0.7 % Normal [facility] Comment on above: Order Comment: Speci men Type: BLOOD SPECIMEN Performed By: #### 2 4323-8 #### [facility] [place] [facility] CLIA [id number] [address] [place] [address] [place] Erythrocyte distribution width (RBC) [Ratio] 13.2 % Normal 11.5-15.0 [facility] Comment on above: Order Comment: Speci men Type: BLOOD SPECIMEN Performed By: #### 2 4323-8 #### [facility] [place] [facility] CLIA [id number] [address] [place] [address] [place] Hematocrit (Bld) [Volume fraction] 42.4 % Normal 36.0-46.0 [facility] Comment on above: Order Comment: Speci men Type: BLOOD SPECIMEN Performed By: #### 2 4323-8 #### [facility] [place] [facility] CLIA [id number] [address] [place] [address] [facility] [place] Hemoglobin (Bld) [Mass/Vol] 13.9 g/dL Normal 11.5-15.5 [facility] Comment on above: Order Comment: Speci men Type: BLOOD SPECIMEN Performed By: #### 2 4323-8 #### [facility] [place] [facility] CLIA [id number] [address] [place] [address] [facility] [place] Lymphocytes (Bld) [#/Vol] 0.53 10*3/uL Low 1.00-4.00 [facility] Comment on above: Order Comment: Speci men Type: BLOOD SPECIMEN Performed By: #### 2 4323-8 #### [facility] [place] [facility] CLIA [id number] [address] [place] [address] [facility] [place] Lymphocytes/100 WBC (Bld) 6.1 % Normal [facility] Comment on above: Order Comment: Speci men Type: BLOOD SPECIMEN Performed By: #### 2 4323-8 #### [facility] [place] [facility] CLIA [id number] [address] [place] [address] [facility] MCH (RBC) [Entitic mass] 30.8 pg Normal 26.0-34.0 [facility] Comment on above: Order Comment: Speci men Type: BLOOD SPECIMEN Performed By: #### 2 4323-8 #### [facility] [place] [facility] CLIA [id number] [address] [place] [address] [facility] [place] MCHC (RBC) [Mass/Vol] 32.8 g/dL Normal 30.5-36.0 [facility] Comment on above: Order Comment: Speci men Type: BLOOD SPECIMEN Performed By: #### 2 4323-8 #### [facility] [place] [facility] CLIA [id number] [address] [place] [address] [place] MCV (RBC) [Entitic vol] 93.8 fL Normal 80.0-100.0 [facility] Comment on above: Order Comment: Speci men Type: BLOOD SPECIMEN Performed By: #### 2 4323-8 #### [facility] [place] [facility] CLIA [id number] [address] [place] [address] [facility] [place] Monocytes (Bld) [#/Vol] 0.73 10*3/uL Normal <0.87 [facility] Comment on above: Order Comment: Speci men Type: BLOOD SPECIMEN Performed By: #### 2 4323-8 #### [facility] [place] [facility] CLIA [id number] [address] [place] [address] [place] Monocytes/100 WBC (Bld) 8.4 % Normal A [facility] Comment on above: Order Comment: Speci men Type: BLOOD SPECIMEN Performed By: #### 2 4323-8 #### [facility] [place] [facility] CLIA [id number] [address] [place] [address] [place] Neutrophils (Bld) [#/Vol] 7.34 10*3/uL Normal 1.45-7.50 [facility] Comment on above: Order Comment: Speci men Type: BLOOD SPECIMEN Performed By: #### 2 4323-8 #### [facility] [place] [facility] CLIA [id number] [address] [place] [address] [place] [facility] Neutrophils/100 WBC (Bld) 84.5 % Normal [facility] Comment on above: Order Comment: Speci men Type: BLOOD SPECIMEN Performed By: #### 2 4323-8 #### [facility] [place] [facility] CLIA [id number] [address] [place] [address] [place] [facility] Platelet mean volume (Bld) [Entitic vol] 11.3 fL Normal 9.0-12.7 [facility] Comment on above: Order Comment: Speci men Type: BLOOD SPECIMEN Performed By: #### 2 4323-8 #### [facility] [place] [facility] CLIA [id number] [address] [place] [address] [place] Platelets (Bld) [#/Vol] 240 10*3/uL Normal 150-400 [facility] Comment on above: Order Comment: Speci men Type: BLOOD SPECIMEN Performed By: #### 2 4323-8 #### [facility] [place] [facility] CLIA [id number] [address] [place] [address] [place] [facility] RBC (Bld) [#/Vol] 4.52 10*6/uL Normal 3.90-5.20 [facility] Comment on above: Order Comment: Speci men Type: BLOOD SPECIMEN Performed By: #### 2 4323-8 #### [facility] [place] [facility] CLIA [id number] [address] [place] [address] [place] WBC (Bld) [#/Vol] 8.69 10*3/uL Normal 3.70-11.00 [facility] Comment on above: Order Comment: Speci men Type: BLOOD SPECIMEN Performed By: #### 2 4323-8 #### [facility] [place] [facility] CLIA [id number] [address] [place] [address] [facility] Comprehensive metabolic 2000 panelon 09-18-2020 Albumin [Mass/Vol] 4.6 g/dL Normal 3.9-4.9 [facility] Comment on above: Order Comment: Speci men Type: BLOOD SPECIMEN Performed By: #### 2 4323-8 #### [facility] [place] [facility] CLIA [id number] [address] [place] [address] [place] ALP [Catalytic activity/Vol] 117 U/L Normal 34-123 [facility] Comment on above: Order Comment: Speci men Type: BLOOD SPECIMEN Performed By: #### 2 4323-8 #### [facility] [place] [facility] CLIA [id number] [address] [facility] [place] [address] [facility] [place] ALT With P-5'-P [Catalytic activity/Vol] 16 U/L Normal 7-38 [facility] Comment on above: Order Comment: Speci men Type: BLOOD SPECIMEN Performed By: #### 2 4323-8 #### [facility] [place] [facility] CLIA [id number] [address] [facility] [place] [address] [place] Anion gap [Moles/Vol] 11 mmol/L Normal 9-18 [facility] Comment on above: Order Comment: Speci men Type: BLOOD SPECIMEN Performed By: #### 2 4323-8 #### [facility] [place] [facility] CLIA [id number] [address] [facility] [place] [address] [place] AST With P-5'-P [Catalytic activity/Vol] 15 U/L Normal 13-35 [facility] Comment on above: Order Comment: Speci men Type: BLOOD SPECIMEN Performed By: #### 2 4323-8 #### [facility] [place] [facility] CLIA [id number] [address] [facility] [place] [address] [place] Bilirubin [Mass/Vol] 0.5 mg/dL Normal 0.2-1.3 [facility] Comment on above: Order Comment: Speci men Type: BLOOD SPECIMEN Performed By: #### 2 4323-8 #### [facility] [place] [facility] CLIA [id number] [address] [place] [address] [place] Calcium [Mass/Vol] 10.0 mg/dL Normal 8.5-10.2 [facility] Comment on above: Order Comment: Speci men Type: BLOOD SPECIMEN Performed By: #### 2 4323-8 #### [facility] [place] [facility] CLIA [id number] [address] [place] [address] [place] Chloride [Moles/Vol] 102 mmol/L Normal 97-105 [facility] Comment on above: Order Comment: Speci men Type: BLOOD SPECIMEN Performed By: #### 2 4323-8 #### [facility] [place] [facility] CLIA [id number] [address] [place] [address] [place] CO2 [Moles/Vol] 25 mmol/L Normal 22-30 [facility] Comment on above: Order Comment: Speci men Type: BLOOD SPECIMEN Performed By: #### 2 4323-8 #### [facility] [place] [facility] CLIA [id number] [address] [place] [address] [place] Creatinine [Mass/Vol] 0.73 mg/dL Normal 0.58-0.96 [facility] Comment on above: Order Comment: Speci men Type: BLOOD SPECIMEN Performed By: #### 2 4323-8 #### [facility] [place] [facility] CLIA [id number] [address] [place] [address] [place] GFR/1.73 sq M.predicted among blacks MDRD (S/P/Bld) [Vol rate/Area] mL/min/{1.73_m2} [facility] Comment on above: Order Comment: Speci men Type: BLOOD SPECIMEN Performed By: #### 2 4323-8 #### [facility] [place] [facility] CLIA [id number] [address] [place] [address] [place] GFR/1.73 sq M.predicted among non-blacks MDRD (S/P/Bld) [Vol rate/Area] mL/min/{1.73_m2} [facility] Comment on above: Order Comment: Speci men Type: BLOOD SPECIMEN Result Comment: eGFR (Estimated GFR) Units of measure: mL/min/1.73 meters squared eGFR is derived from the reexpressed MDRD Study equation using the following parameters: serum creatinine, age, gender and race. The creatinine assay has been calibrated to be traceable to IDMS. An eGFR <60 mL/min/1.73m2 for >3 months is consistent with chronic kidney disease. Refer to KDOQI guidelines for clinical interpretation. In patients with unstable renal function, e.g. those with acute kidney injury, the eGFR may not accurately reflect actual GFR. Performed By: #### 2 4323-8 #### [facility] [place] [facility] CLIA [id number] [address] [place] [address] [place] Glucose [Mass/Vol] 94 mg/dL Normal 74-99 [facility] Comment on above: Order Comment: Speci men Type: BLOOD SPECIMEN Result Comment: The [place] Diabetes Association (ADA) provides guidance for cutoff values for fasting glucose and random glucose. The ADA defines fasting as no caloric intake for at least 8 hours. Fasting plasma glucose results between 100 to 125 mg/dL indicate increased risk for diabetes (prediabetes). Fasting plasma glucose results greater than or equal to 126 mg/dL meet the criteria for diagnosis of diabetes. In the absence of unequivocal hyperglycemia, results should be confirmed by repeat testing. In a patient with classic symptoms of hyperglycemia or hyperglycemic crisis, random plasma glucose results greater than or equal to 200 mg/dL meet the criteria for diagnosis of diabetes. Reference: Standards of Medical Care in Diabetes 2016, [place] Diabetes Association. Diabetes Care. 2016.39(Suppl 1). Performed By: #### 2 4323-8 #### [facility] [place] [facility] CLIA [id number] [address] [place] [address] [place] Potassium [Moles/Vol] 3.5 mmol/L Low 3.7-5.1 [facility] Comment on above: Order Comment: Speci men Type: BLOOD SPECIMEN Performed By: #### 2 4323-8 #### [facility] [place] [facility] CLIA [id number] [address] [place] [address] [place] Protein [Mass/Vol] 7.6 g/dL Normal 6.3-8.0 [facility] Comment on above: Order Comment: Speci men Type: BLOOD SPECIMEN Performed By: #### 2 4323-8 #### [facility] [place] [facility] CLIA [id number] [address] [place] [address] [facility] Sodium [Moles/Vol] 138 mmol/L Normal 136-144 [facility] Comment on above: Order Comment: Speci men Type: BLOOD SPECIMEN Performed By: #### 2 4323-8 #### [facility] [place] [facility] CLIA [id number] [address] [place] [address] [facility] Urea nitrogen [Mass/Vol] 4 mg/dL Low 7-21 [facility] Comment on above: Order Comment: Speci men Type: BLOOD SPECIMEN Performed By: #### 2 4323-8 #### [facility] [place] [facility] CLIA [id number] [address] [place] [address] [facility] HCG Preg Ur Qlon 09-18-2020 HCG ( test) Ql (U) Negative Normal Negative [facility] Comment on above: Order Comment: Speci men Type: BLOOD SPECIMEN Result Comment: This test is intended to aid in the early detection of . Very dilute urine samples, as indicated by a low specific gravity, may not contain industrial sales representative levels of hCG. This test detects intact hCG only. This test does not reliably detect hCG degradation products, including free-beta subunit and beta-core fragment. Therefore, this test may show reduced reactivity in urine after 8 weeks gestation. A number of conditions other than , including trophoblastic disease and certain non-trophoblastic neoplasms cause elevated levels of hCG. As with any assay employing mouse antibodies, the possibility exists for interference by human anti-mouse antibodies (HAMA) in the specimen. The test provides a presumptive diagnosis for . Performed By: #### 2 4323-8 #### [facility] [place] [facility] CLIA [id number] [address] [place] [address] [facility] HIGH SENSITIVITY TROPONIN To n 09-18-2020 HIGH SENSITIVITY SAULO 13 ng/L High <12 [facility] Comment on above: Order Comment: Speci men Type: BLOOD SPECIMEN Result Comment: When assessing risk for acute coronary syndromes: In patients undergoing blood draw greater than or equal to 2 hours from symptom onset, with history of very low to moderate risk and non-ischemic ECG, an initial hs-Troponin T less than 12 ng/L AND a 1 hour delta hs-Troponin T less than 3 ng/L should be considered very low risk for 30 day MACE. Performed By: #### H STNT #### [facility] [place] [facility] CLIA [id number] [address] [place] [address] [facility] HIGH SENSITIVITY SAULO 13 ng/L High <12 [facility] Comment on above: Order Comment: Speci men Type: BLOOD SPECIMEN Result Comment: When assessing risk for acute coronary syndromes: In patients undergoing blood draw greater than or equal to 2 hours from symptom onset, with history of very low to moderate risk and non-ischemic ECG, an initial hs-Troponin T less than 12 ng/L AND a 1 hour delta hs-Troponin T less than 3 ng/L should be considered very low risk for 30 day MACE. Performed By: #### H STNT #### [facility] [place] [facility] CLIA [id number] [address] [place] [id number] [facility] Lactate (Bld) [Moles/Vol]on 09-18-2020 Lactate [Moles/Vol] 1.3 mmol/L Normal 0.5-2.2 [facility] Comment on above: Order Comment: Speci men Type: BLOOD SPECIMEN Performed By: #### 2 4323-8 #### [facility] [place] [facility] CLIA [id number] [address] [place] [id number] [facility] RAPID GROUP A STREP RFLX TO CULTon 09-18-2020 S. pyogenes Ag IA Ql (Unsp spec) GROUP A STREP ANTIGEN: Negative Group A Strep Screen Culture negative for Beta Strep Group A Normal [facility] Comment on above: Order Comment: Speci men Type: BLOOD SPECIMEN Performed By: #### 2 4323-8 #### [facility] [place] [facility] CLIA [id number] [address] [place] [address] [place] Urinalysis complete panel (U )on 09-18-2020 Bilirubin Ql (U) Negative Normal Negative [facility] Comment on above: Order Comment: Speci men Type: BLOOD SPECIMEN Performed By: #### 2 4323-8 #### [facility] [place] [facility] CLIA [id number] [address] [place] [address] [facility] Clarity (Unsp spec) Clear Normal Clear [facility] Comment on above: Order Comment: Speci men Type: BLOOD SPECIMEN Performed By: #### 2 4323-8 #### [facility] [place] [facility] CLIA [id number] [address] [place] [address] [facility] Color (U) Yellow Normal Yellow [facility] Comment on above: Order Comment: Speci men Type: BLOOD SPECIMEN Performed By: #### 2 4323-8 #### [facility] [place] [facility] CLIA [id number] [address] [place] [address] [facility] Epithelial cells LM.HPF (Urine sed) [#/Area] Few Normal [facility] Comment on above: Order Comment: Speci men Type: BLOOD SPECIMEN Performed By: #### 2 4323-8 #### [facility] [place] [facility] CLIA [id number] [address] [place] [address] [facility] Glucose Test strip (U) [Mass/Vol] Negative Normal Negative [facility] Comment on above: Order Comment: Speci men Type: BLOOD SPECIMEN Performed By: #### 2 4323-8 #### [facility] [place] [facility] CLIA [id number] [address] [place] [address] [place] Hemoglobin Ql (U) 2+ Abnormal Negative [facility] Comment on above: Order Comment: Speci men Type: BLOOD SPECIMEN Performed By: #### 2 4323-8 #### [facility] [place] [facility] CLIA [id number] [address] [place] [address] [facility] Ketones Ql (U) Negative Normal Negative [facility] Comment on above: Order Comment: Speci men Type: BLOOD SPECIMEN Performed By: #### 2 4323-8 #### [facility] [place] [facility] CLIA [id number] [address] [place] [address] [facility] Leukocyte esterase Test strip Ql (U) Negative Normal Negative [facility] Comment on above: Order Comment: Speci men Type: BLOOD SPECIMEN Performed By: #### 2 4323-8 #### [facility] [place] [facility] CLIA [id number] [address] [place] [address] [facility] Nitrite Ql (U) Negative Normal Negative [facility] Comment on above: Order Comment: Speci men Type: BLOOD SPECIMEN Performed By: #### 2 4323-8 #### [facility] [place] [facility] CLIA [id number] [address] [place] [address] [place] pH (U) 7.0 [pH] Normal 5.0-8.0 [facility] Comment on above: Order Comment: Speci men Type: BLOOD SPECIMEN Performed By: #### 2 4323-8 #### [facility] [place] [facility] CLIA [id number] [address] [place] [address] [place] Protein (U) [Mass/Vol] Normal [facility] Comment on above: Order Comment: Speci men Type: BLOOD SPECIMEN Result Comment: Visi ble blood causes falsely elevated results for analyte Protein. Due to this limitation, Protein will not be reported for patients whose urine contains visible blood. Performed By: #### 2 4323-8 #### [facility] [place] [facility] CLIA [id number] [address] [place] [address] [facility] RBC LM.HPF (Urine sed) [#/Area] 0-3 /HPF Normal 0-3 /HPF [facility] Comment on above: Order Comment: Speci men Type: BLOOD SPECIMEN Performed By: #### 2 4323-8 #### [facility] [place] [facility] CLIA [id number] [address] [place] [address] [facility] Specific gravity (U) [Rel density] 1.015 Normal 1.005-1.03 0 [facility] Comment on above: Order Comment: Speci men Type: BLOOD SPECIMEN Performed By: #### 2 4323-8 #### [facility] [place] [facility] CLIA [id number] [address] [place] [address] [facility] Urobilinogen Ql (U) 0.2 EU/dL Normal 0.2-1.0 EU/dL [facility] Comment on above: Order Comment: Speci men Type: BLOOD SPECIMEN Performed By: #### 2 4323-8 #### [facility] CLIA [id number] [address] [place] [address] [facility] WBC LM.HPF (Urine sed) [#/Area] 0-5 /HPF Normal 0-5 /HPF [facility] Comment on above: Order Comment: Speci men Type: BLOOD SPECIMEN Performed By: #### 2 4323-8 #### [facility] CLIA [id number] [address] [place] [address] [facility] XR CHEST 1V FRONTALon 2020 XR CHEST 1V FRONTAL * * *Final Report* * * DATE OF EXAM: Sep 18 2020 5:21PM LDX 5290 - XR CHEST 1V FRONTAL / PROCEDURE REASON: Cough, new onset * * * * Physician Interpretation * * * * EXAMINATION: CHEST RADIOGRAPH (SINGLE VIEW AP OR PA) CLINICAL HISTORY: Cough, new onset, Shortness of breath MQ: XC1_5 Comparison: Chest radiograph 04/16/2020. CT chest 04/17/2020. RESULT: Lines, tubes, and devices: Right-sided single-chamber cardiac pacer/ICD is stable. Lungs and pleura: No consolidation. No lung mass. No pleural effusion. Cardiomediastinal silhouette: Normal cardiomediastinal silhouette. Other: No bony abnormalities. IMPRESSION: Stable appearance of the chest. No acute radiographic abnormality. Assembly Department Supervisor: PSCB Transcribe Date/Time: Sep 18 2020 5:24P Dictated by : ASHIA PONCE MD This examination was interpreted and the report reviewed and electronically signed by: ASHIA PONCE MD on Sep 18 2020 5:26PM EST [id number] Normal [facility] Basic metabolic 2000 panelon 04-17-2020 Anion gap [Moles/Vol] 10 mmol/L Normal 9-18 [facility] Comment on above: Order Comment: Speci men Type: BLOOD SPECIMEN Performed By: #### 2 4323-8 #### [facility] [place] [facility] CLIA [id number] [address] [facility] [place] [address] [place] Calcium [Mass/Vol] 9.0 mg/dL Normal 8.5-10.2 [facility] Comment on above: Order Comment: Speci men Type: BLOOD SPECIMEN Performed By: #### 2 4323-8 #### [facility] [place] [facility] CLIA [id number] [address] [facility] [place] [address] [place] Chloride [Moles/Vol] 107 mmol/L High 97-105 [facility] Comment on above: Order Comment: Speci men Type: BLOOD SPECIMEN Performed By: #### 2 4323-8 #### [facility] [place] [facility] CLIA [id number] [address] [facility] [place] [address] [place] CO2 [Moles/Vol] 23 mmol/L Normal 22-30 [facility] Comment on above: Order Comment: Speci men Type: BLOOD SPECIMEN Performed By: #### 2 4323-8 #### [facility] [place] [facility] CLIA [id number] [address] [facility] [address] [place] Creatinine [Mass/Vol] 0.78 mg/dL Normal 0.58-0.96 [facility] Comment on above: Order Comment: Speci men Type: BLOOD SPECIMEN Performed By: #### 2 4323-8 #### [facility] [place] [facility] CLIA [id number] [address] [facility] [address] [place] GFR/1.73 sq M.predicted among blacks MDRD (S/P/Bld) [Vol rate/Area] mL/min/{1.73_m2} Normal [facility] Comment on above: Order Comment: Speci men Type: BLOOD SPECIMEN Performed By: #### 2 4323-8 #### [facility] [place] [facility] CLIA [id number] [address] [facility] [place] [address] [place] GFR/1.73 sq M.predicted among non-blacks MDRD (S/P/Bld) [Vol rate/Area] mL/min/{1.73_m2} Normal [facility] Comment on above: Order Comment: David horton Type: BLOOD SPECIMEN Result Comment: eGFR (Estimated GFR) Units of measure: mL/min/1.73 meters squared eGFR is derived from the reexpressed MDRD Study equation using the following parameters: serum creatinine, age, gender and race. The creatinine assay has been calibrated to be traceable to IDMS. An eGFR <60 mL/min/1.73m2 for >3 months is consistent with chronic kidney disease. Refer to KDOQI guidelines for clinical interpretation. In patients with unstable renal function, e.g. those with acute kidney injury, the eGFR may not accurately reflect actual GFR. Performed By: #### 2 4323-8 #### [facility] CLIA [id number] [address] [place] [address] [place] Glucose [Mass/Vol] 91 mg/dL Normal 74-99 [facility] Comment on above: Order Comment: Speci sol Type: BLOOD SPECIMEN Result Comment: The [place] Diabetes [employer] (ADA) provides guidance for cutoff values for fasting glucose and random glucose. The ADA defines fasting as no caloric intake for at least 8 hours. Fasting plasma glucose results between 100 to 125 mg/dL indicate increased risk for diabetes (prediabetes). Fasting plasma glucose results greater than or equal to 126 mg/dL meet the criteria for diagnosis of diabetes. In the absence of unequivocal hyperglycemia, results should be confirmed by repeat testing. In a patient with classic symptoms of hyperglycemia or hyperglycemic crisis, random plasma glucose results greater than or equal to 200 mg/dL meet the criteria for diagnosis of diabetes. Reference: Standards of Medical Care in Diabetes 2016, [place] [employer]. Diabetes Care. 2016.39(Suppl 1). Performed By: #### 2 4323-8 #### [facility] CLIA [id number] [address] [place] [address] [place] Potassium [Moles/Vol] 3.4 mmol/L Low 3.7-5.1 [facility] Comment on above: Order Comment: David horton Type: BLOOD SPECIMEN Performed By: #### 2 4323-8 #### [facility] CLIA [id number] [address] [place] [address] [place] Sodium [Moles/Vol] 140 mmol/L Normal 136-144 [facility] Comment on above: Order Comment: Speci men Type: BLOOD SPECIMEN Performed By: #### 2 4323-8 #### [facility] CLIA [id number] [address] [place] [address] [place] Urea nitrogen [Mass/Vol] 6 mg/dL Low 7-21 [facility] Comment on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 pylori. SR/srj 08/26/2017 Lito Hernandez MD, Ph.D.(Electronic Signature) SPECIMEN SUBMITTEDA: ANTRUM, BIOPSY CLINICAL DATANAUSEA AND VOMITING, INTRACTABILITY OF VOMITING NOT SPECIFIED, UNSPECIFIEDVOMITING TYPE R/O H PYLORIGROSS DESCRIPTIONA. Received in formalin are two pieces of maharaj, soft tissue aggregating to0.4 x 0.2 x 0.2 cm. Totally submitted in one cassette.Gross examination performed at [facility] [place] [id number] 08/25/17Patient ID #: [id number] of Report: 08/27/2017Date of Procedure: 08/25/2017Date of Receipt: 08/25/2017Submitted by: BALDO TABBAALocation: AVENDiagnostic interpretation performed at [facility], [facility] [place] [id number]. Normal [facility] Reference Lab Comment on above: Performed By: #### S ####See report for performing lab information. HOSPon 08-22-2017 HOSP Patient:Dick Mitchell RN: Height:5' 4(1.626 m)Weight:116 lb (52.617 kg)Outpatient Medications as of 08/25/17:tiZANidine (ZANAFLEX) 4 mg tabletpromethazine (PHENERGAN) 50 mg suppcholestyramine-sucro se (QUESTRAN) 4 gram powderALPRAZolam (XANAX) 0.5 mg tabletrivaroxaban (XARELTO) [address] (PROTONIX) 40 mg tabletzolpidem (AMBIEN) 10 mg TabAdmission/Clinic Administered Medications as of 08/25/17:NaCl 0.9% iv infusionProblem List:Automatic implantable cardioverter-defibrillat or in situ [Z95.810]Atypical chest pain [R07.89]Gastric ulcer [K25.9]Cardiomyopathy, hypertrophic nonobstructive (HCC) [I42.2]Hypokalemia not associated with diuretics [E87.6]Neuropathic pain [M79.2]SUMMARY []RLQ abdominal pain [R10.31]Chest pain [R07.9]PE (pulmonary thromboembolism) (HCC) [I26.99]Left breast mass [N63.20]History of left breast cancer [Z85.3]BRCA2 positive [Z15.01, Z15.09]Bilateral fibrocystic breast changes [N60.11, N60.12]Dense breasts [R92.2]Family history of breast cancer [Z80.3]Personal history of breast cancer [Z85.3]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 [Z15.01, Z15.02, Z15.09]Fibroadenoma, 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]Jaw mass [R22.0]Gastroesophageal reflux disease [K21.9]Nausea and vomiting [R11.2]Allergies:Morphin eAtivan [Lorazepam]AzithromycinC ucumberFishLevofloxacin In Y9oBlyukkbez [Gabapentin]pickles [Other]ShellfishTigan [Trimethobenzamide-Benzo dick]Ultram [Tramadol]Vicodin [Hydrocodone-Acetaminoph en]Zofran [Ondansetron Hcl (Pf)]Date Verified: 08/25/17Lab ValuesLab Value Units Date High LowPOTA* 3.1 mEq/L 08/05/2017 5.1 3.5HEMA* 41.2 % 08/05/2017 47.0 37.0Progress Notes ([facility] CC):Kwasi Stephens Rt 08/22/2017 11:17 AM Signed Radiology Service Progress NotePATIENT NAME: Michelle MitchellMRN: [id number] OF SERVICE: August 22, 2017TIME: 11:16 AMPATIENT IDENTITY VERIFICATION COMPLETED USING TWO (2) METHODS: Patientconfirmed name verbally and Date of .PATIENT GENDER DATA: Female. status: : No Breastfeedingstatus: NO.PATIENT RELEVANT IMPLANT DATA REVIEWED: Not ApplicableRADIOLOGY DEPARTMENT: General X-ray: Exam(s) Completed: Abdomen X-Ray AbdomenPERIPHERAL IV DATA: Not applicableSIGNED BY: Praveena Traore RtJune 2017 11:16 AMProgress Notes ([facility] REJ):Jacqueline Stevens MA, SUBHA 08/22/2017 10:[address] Aguilera is in regards to our mutual patient Michelle Mitchell who is scheduled gwendolyn EGD on 08/25/2017. Dr. Kennedy is requesting that Ms. Mitchell stop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s prior to procedure.Please advise and route message to:Dominguez MASON CORS/SERGIO NURSE [id number] Stevens MA, MA 08/23/2017 8:07 AM SignedJoseph Manjinder Sutherland ?You 20 hours ago (11:27 AM)Yes may stop for egd (Routing comment) [facility] Vital Signs Date Time Vital Sign Value Performing Clinician Facility 08-20-2024 18:00-0400 Body temperature 97.8 [degF] Dr. Dex Sutherland MD Work Phone: [facility] 08-20-2024 18:00-0400 Diastolic blood pressure 88 mm[Hg] Dr. Dex Sutherland MD Work Phone: [facility] 08-20-2024 18:00-0400 Heart rate 63 /min Dr. Dex Sutherland MD Work Phone: [facility] 08-20-2024 18:00-0400 Respiratory rate 18 /min Dr. Dex Sutherland MD Work Phone: [facility] 08-20-2024 18:00-0400 SaO2% (BldA) [Mass fraction] 100 % Dr. Dex Sutherland MD Work Phone: [facility] 08-20-2024 18:00-0400 Systolic blood pressure 136 mm[Hg] Dr. Dex Sutherland MD Work Phone: [facility] 08-20-2024 14:16-0400 Body height 162.[address] Dex Sutherland MD Work Phone: [facility] 08-20-2024 14:16-0400 Body mass index (BMI) [Ratio] 22.2 kg/m2 Dr. Dex Sutherland MD Work Phone: [facility] 08-20-2024 14:16-0400 Body weight 58.[address] Dex Sutherland MD Work Phone: [facility] 08-15-2024 10:57-0400 Body height 162.6 cm Radu Pedraza MD Work Phone: [facility] 08-15-2024 10:57-0400 Body mass index (BMI) [Ratio] 21.7 kg/m2 Radu Pedraza MD Work Phone: [facility] 08-15-2024 10:57-0400 Body weight 57.34 kg Radu Pedraza MD Work Phone: [facility] 08-15-2024 10:57-0400 Diastolic blood pressure 59 mm[Hg] Radu Pedraza MD Work Phone: [facility] 08-15-2024 10:57-0400 Heart rate 65 /min Radu Pedraza MD Work Phone: [facility] 08-15-2024 10:57-0400 Respiratory rate 16 /min Raud Pedraza MD Work Phone: [facility] 08-15-2024 10:57-0400 SaO2% (BldA) [Mass fraction] 96 % Radu Pedraza MD Work Phone: [facility] 08-15-2024 10:57-0400 Systolic blood pressure 120 mm[Hg] Radu Pedraza MD Work Phone: [facility] 08-11-2024 13:41-0400 Body temperature 97.8 [degF] Dr. Dex Sutherland MD Work Phone: [facility] 08-11-2024 13:41-0400 Diastolic blood pressure 76 mm[Hg] Dr. Dex Sutherland MD Work Phone: [facility] 08-11-2024 13:41-0400 Heart rate 64 /min Dr. Dex Sutherland MD Work Phone: [facility] 08-11-2024 13:41-0400 Respiratory rate 16 /min Dr. Dex Sutherland MD Work Phone: [facility] 08-11-2024 13:41-0400 SaO2% (BldA) [Mass fraction] 97 % Dr. Dex Sutherland MD Work Phone: [facility] 08-11-2024 13:41-0400 Systolic blood pressure 105 mm[Hg] Dr. Dex Sutherland MD Work Phone: [facility] 08-11-2024 10:27-0400 Body height 162.[address] Dex Sutherland MD Work Phone: [facility] 08-11-2024 10:27-0400 Body mass index (BMI) [Ratio] 20.7 kg/m2 Dr. Dex Sutherland MD Work Phone: [facility] 08-11-2024 10:27-0400 Body weight 54.[address] Dex Sutherland MD Work Phone: [facility] 07-25-2024 16:43-0400 Diastolic blood pressure 57 mm[Hg] Ip [facility] 07-25-2024 16:43-0400 Heart rate 61 /min Ip [facility] 07-25-2024 16:43-0400 Respiratory rate 18 /min Ip [facility] 07-25-2024 16:43-0400 SaO2% (BldA) [Mass fraction] 95 % [facility] 07-25-2024 16:43-0400 Systolic blood pressure 110 mm[Hg] [facility] 07-25-2024 15:04-0400 Body temperature 98.2 [degF] Ip [facility] 07-24-2024 08:20-0400 Inhaled oxygen flow rate 2 L/min Dr. Dex Sutherland MD Work Phone: [facility] 07-24-2024 08:20-0400 SaO2% (BldA) [Mass fraction] 96 % Dr. Dex Sutherland MD Work Phone: [facility] 07-24-2024 07:41-0400 Body temperature 97.6 [degF] Dr. Dex Sutherland MD Work Phone: [facility] 07-24-2024 07:41-0400 Diastolic blood pressure 79 mm[Hg] Dr. Dex Sutherland MD Work Phone: [facility] 07-24-2024 07:41-0400 Heart rate 62 /min Dr. Dex Sutherland MD Work Phone: [facility] 07-24-2024 07:41-0400 Respiratory rate 17 /min Dr. Dex Sutherland MD Work Phone: [facility] 07-24-2024 07:41-0400 Systolic blood pressure 126 mm[Hg] Dr. Dex Sutherland MD Work Phone: [facility] 07-24-2024 06:00-0400 Body mass index (BMI) [Ratio] 22.8 kg/m2 Dr. Dex Sutherland MD Work Phone: [facility] 07-24-2024 06:00-0400 Body weight 60.[address] Dex Sutherland MD Work Phone: [facility] 07-21-2024 09:02-0400 Body height 162.[address] Dex Sutherland MD Work Phone: [facility] 07-20-2024 23:38-0400 Body temperature 98.2 [degF] Dr. Dex Sutherland MD Work Phone: [facility] 07-20-2024 23:38-0400 Diastolic blood pressure 100 mm[Hg] Dr. Dex Sutherland MD Work Phone: [facility] 07-20-2024 23:38-0400 Heart rate 70 /min Dr. Dex Sutherland MD Work Phone: [facility] 07-20-2024 23:38-0400 Respiratory rate 15 /min Dr. Dex Sutherland MD Work Phone: [facility] 07-20-2024 23:38-0400 SaO2% (BldA) [Mass fraction] 99 % Dr. Dex Sutherland MD Work Phone: [facility] 07-20-2024 23:38-0400 Systolic blood pressure 133 mm[Hg] Dr. Dex Sutherland MD Work Phone: [facility] 07-20-2024 18:57-0400 Body height 162.[address] Dex Sutherland MD Work Phone: [facility] 07-20-2024 18:57-0400 Body mass index (BMI) [Ratio] 23.6 kg/m2 Dr. Dex Sutherland MD Work Phone: [facility] 07-20-2024 18:57-0400 Body weight 62.[address] Dex Sutherland MD Work Phone: [facility] 07-12-2024 12:25-0400 Body temperature 97.4 [degF] Dr. Dex Sutherland MD Work Phone: [facility] 07-12-2024 12:25-0400 Diastolic blood pressure 69 mm[Hg] Dr. Dex Sutherland MD Work Phone: [facility] 07-12-2024 12:25-0400 Heart rate 60 /min Dr. Dex Sutherland MD Work Phone: [facility] 07-12-2024 12:25-0400 Respiratory rate 16 /min Dr. Dex Sutherland MD Work Phone: [facility] 07-12-2024 12:25-0400 SaO2% (BldA) [Mass fraction] 98 % Dr. Dex Sutherland MD Work Phone: [facility] 07-12-2024 12:25-0400 Systolic blood pressure 103 mm[Hg] Dr. Dex Sutherland MD Work Phone: [facility] 07-12-2024 10:17-0400 Body mass index (BMI) [Ratio] 21.5 kg/m2 Dr. Dex Sutherland MD Work Phone: [facility] 07-12-2024 10:17-0400 Body weight [address] Dex Sutherland MD Work Phone: [facility] 07-10-2024 07:16-0400 Body mass index (BMI) [Ratio] 21.6 kg/m2 Dr. Dex Sutherland MD Work Phone: [facility] 07-10-2024 07:16-0400 Body weight 57.[address] Dex Sutherland MD Work Phone: [facility] 07-10-2024 07:16-0400 Diastolic blood pressure 83 mm[Hg] Dr. Dex Sutherland MD Work Phone: [facility] 07-10-2024 07:16-0400 Heart rate 70 /min Dr. Dex Sutherland MD Work Phone: [facility] 07-10-2024 07:16-0400 Respiratory rate 16 /min Dr. Dex Sutherland MD Work Phone: [facility] 07-10-2024 07:16-0400 SaO2% (BldA) [Mass fraction] 98 % Dr. Dex Sutherland MD Work Phone: [facility] 07-10-2024 07:16-0400 Systolic blood pressure 134 mm[Hg] Dr. Dex Sutherland MD Work Phone: [facility] 07-03-2024 17:55-0400 Body temperature 98.2 [degF] Dr. Dex Sutherland MD Work Phone: [facility] 07-03-2024 17:55-0400 Diastolic blood pressure 93 mm[Hg] Dr. Dex Sutherland MD Work Phone: [facility] 07-03-2024 17:55-0400 Heart rate 68 /min Dr. Dex Sutherland MD Work Phone: [facility] 07-03-2024 17:55-0400 Respiratory rate 19 /min Dr. Dex Sutherland MD Work Phone: [facility] 07-03-2024 17:55-0400 SaO2% (BldA) [Mass fraction] 99 % Dr. Dex Sutherland MD Work Phone: [facility] 07-03-2024 17:55-0400 Systolic blood pressure 142 mm[Hg] Dr. Dex Sutherland MD Work Phone: [facility] 07-03-2024 13:30-0400 Body mass index (BMI) [Ratio] 22.9 kg/m2 Dr. Dex Sutherland MD Work Phone: [facility] 07-03-2024 13:30-0400 Body weight 60.[address] Dex Sutherland MD Work Phone: [facility] 07-01-2024 23:24-0400 Body temperature 97.9 [degF] Dr. Dex Sutherland MD Work Phone: [facility] 07-01-2024 23:24-0400 Diastolic blood pressure 100 mm[Hg] Dr. Dex Sutherland MD Work Phone: [facility] 07-01-2024 23:24-0400 Heart rate 70 /min Dr. Dex Sutherland MD Work Phone: [facility] 07-01-2024 23:24-0400 Respiratory rate 17 /min Dr. Dex Sutherland MD Work Phone: [facility] 07-01-2024 23:24-0400 SaO2% (BldA) [Mass fraction] 99 % Dr. Dex Sutherland MD Work Phone: [facility] 07-01-2024 23:24-0400 Systolic blood pressure 136 mm[Hg] Dr. Dex Sutherland MD Work Phone: [facility] 07-01-2024 19:52-0400 Body height 162.[address] Dex Sutherland MD Work Phone: [facility] 07-01-2024 19:52-0400 Body mass index (BMI) [Ratio] 22 kg/m2 Dr. Dex Sutherland MD Work Phone: [facility] 07-01-2024 19:52-0400 Body weight 58.[address] Dex Sutherland MD Work Phone: [facility] 05-11-2024 23:42-0500 Body mass index (BMI) [Ratio] 21.5 kg/m2 Dr. Dex Sutherland MD Work Phone: [facility] 05-11-2024 23:42-0500 Body temperature 98.2 [degF] Dr. Dex Sutherland MD Work Phone: [facility] 05-11-2024 23:42-0500 Body weight 56.[address] Dex Sutherland MD Work Phone: [facility] 05-11-2024 23:42-0500 Diastolic blood pressure 105 mm[Hg] Dr. Dex Sutherland MD Work Phone: [facility] 05-11-2024 23:42-0500 Heart rate 105 /min Dr. Dex Sutherland MD Work Phone: [facility] 05-11-2024 23:42-0500 Respiratory rate 20 /min Dr. Dex Sutherland MD Work Phone: [facility] 05-11-2024 23:42-0500 SaO2% (BldA) [Mass fraction] 100 % Dr. Dex Sutherland MD Work Phone: [facility] 05-11-2024 23:42-0500 Systolic blood pressure 169 mm[Hg] Dr. Dex Sutherland MD Work Phone: [facility] 10-31-2023 10:45-0400 Diastolic Blood Pressure Non-Invasive 60 mm[Hg] DR VICTOR M ORTIZ MD [facility] 10-31-2023 10:45-0400 Heart rate 65 /min DR VICTOR M ORTIZ MD [facility] 10-31-2023 10:45-0400 Respiratory rate 20 /min DR VICTOR M ORTIZ MD [facility] 10-31-2023 10:45-0400 Systolic Blood Pressure Non-Invasive 95 mm[Hg] DR VICTOR M ORTIZ MD [facility] 10-31-2023 10:41-0400 Diastolic Blood Pressure Non-Invasive 54 mm[Hg] DR VICTOR M ORTIZ MD [facility] 10-31-2023 10:41-0400 Heart rate 65 /min DR VICTOR M ORTIZ MD [facility] 10-31-2023 10:41-0400 Respiratory rate 24 /min DR VICTOR M ORTIZ MD [facility] 10-31-2023 10:41-0400 Systolic Blood Pressure Non-Invasive 93 mm[Hg] DR VICTOR M ORTIZ MD [facility] 10-31-2023 10:35-0400 Diastolic Blood Pressure Non-Invasive 52 mm[Hg] DR VICTOR M ORTIZ MD [facility] 10-31-2023 10:35-0400 Heart rate 67 /min DR VICTOR M ORTIZ MD [facility] 10-31-2023 10:35-0400 Respiratory rate 24 /min DR VICTOR M ORTIZ MD [facility] 10-31-2023 10:35-0400 Systolic Blood Pressure Non-Invasive 89 mm[Hg] DR VICTOR M ORTIZ MD [facility] 10-31-2023 10:30-0400 Body height [address] VICTOR M ORTIZ MD [facility] 10-31-2023 10:30-0400 Body weight [address] VICTOR M ORTIZ MD [facility] 10-31-2023 10:30-0400 Body weight 20.44 kg/m2 DR VICTOR M ORTIZ MD [facility] 10-31-2023 10:25-0400 Respiratory Rate - Anes 28 br/min DR VICTOR M ORTIZ MD [facility] 10-31-2023 10:20-0400 Respiratory Rate - Anes 40 br/min DR VICTOR M ORTIZ MD [facility] 10-31-2023 10:15-0400 Respiratory Rate - Anes 30 br/min DR VICTOR M ORTIZ MD [facility] 10-31-2023 10:04-0400 Body height [address] VICTOR M ORTIZ MD [facility] 10-31-2023 10:04-0400 Body temperature 97.88 [degF] DR VICTOR M ORTIZ MD [facility] 10-31-2023 10:04-0400 Body weight [address] VICTOR M ORTIZ MD [facility] 10-31-2023 10:04-0400 Heart rate 68 /min DR VICTOR M ORTIZ MD [facility] 07-04-2023 23:00-0400 Body temperature 97.8 [degF] [facility] 07-04-2023 23:00-0400 Diastolic blood pressure 89 mm[Hg] [facility] 07-04-2023 23:00-0400 Heart rate 78 /min [facility] 07-04-2023 23:00-0400 Respiratory rate 16 /min [facility] 07-04-2023 23:00-0400 SaO2% (BldA) [Mass fraction] 99 % [facility] 07-04-2023 23:00-0400 Systolic blood pressure 122 mm[Hg] [facility] 07-04-2023 19:59-0400 Body height 162.56 cm [facility] 07-04-2023 19:59-0400 Body mass index (BMI) [Ratio] 21.9 kg/m2 [facility] 07-04-2023 19:59-0400 Body weight 57.92 kg [facility] 12-26-2022 01:43-0400 Heart rate 75 /min [facility] 12-26-2022 01:43-0400 Respiratory rate 15 /min [facility] 12-26-2022 01:43-0400 SaO2% (BldA) [Mass fraction] 98 % [facility] 12-26-2022 00:00-0400 Diastolic blood pressure 77 mm[Hg] [facility] 12-26-2022 00:00-0400 Systolic blood pressure 129 mm[Hg] [facility] 12-25-2022 21:20-0400 Body height 162.56 cm [facility] 12-25-2022 21:20-0400 Body mass index (BMI) [Ratio] 21.1 kg/m2 [facility] 12-25-2022 21:20-0400 Body temperature 97.9 [degF] [facility] 12-25-2022 21:20-0400 Body weight 55.8 kg [facility] 03-09-2022 10:45-0500 Respiratory rate 16 /min [facility] Work Phone: 03-09-2022 09:19-0500 Body height 162.56 cm [facility] Work Phone: 03-09-2022 09:19-0500 Body mass index (BMI) [Ratio] 21.2 kg/m2 [facility] Work Phone: 03-09-2022 09:19-0500 Body temperature 97.8 [degF] [facility] Work Phone: 03-09-2022 09:19-0500 Body weight 56.24 kg [facility] Work Phone: 03-09-2022 09:19-0500 Diastolic blood pressure 68 mm[Hg] [facility] Work Phone: 03-09-2022 09:19-0500 Heart rate 86 /min [facility] Work Phone: 03-09-2022 09:19-0500 SaO2% (BldA) [Mass fraction] 100 % [facility] Work Phone: 03-09-2022 09:19-0500 Systolic blood pressure 119 mm[Hg] [facility] Work Phone: 12-17-2021 03:42-0400 Diastolic blood pressure 67 mm[Hg] [facility] Work Phone: 12-17-2021 03:42-0400 Heart rate 70 /min [facility] Work Phone: 12-17-2021 03:42-0400 Respiratory rate 18 /min [facility] Work Phone: 12-17-2021 03:42-0400 SaO2% (BldA) [Mass fraction] 97 % [facility] Work Phone: 12-17-2021 03:42-0400 Systolic blood pressure 98 mm[Hg] [facility] Work Phone: 12-16-2021 22:32-0400 Body height 162.56 cm [facility] Work Phone: 12-16-2021 22:32-0400 Body mass index (BMI) [Ratio] 21.4 kg/m2 [facility] Work Phone: 12-16-2021 22:32-0400 Body temperature 98.5 [degF] [facility] Work Phone: 12-16-2021 22:32-0400 Body weight 56.69 kg [facility] Work Phone: 11-13-2021 17:52-0400 Respiratory rate 16 /min [facility] Work Phone: 11-13-2021 15:41-0400 Body height 162.56 cm [facility] Work Phone: 11-13-2021 15:41-0400 Body mass index (BMI) [Ratio] 21.2 kg/m2 [facility] Work Phone: 11-13-2021 15:41-0400 Body temperature 97.6 [degF] [facility] Work Phone: 11-13-2021 15:41-0400 Body weight 56.24 kg [facility] Work Phone: 11-13-2021 15:41-0400 Diastolic blood pressure 70 mm[Hg] [facility] Work Phone: 11-13-2021 15:41-0400 Heart rate 88 /min [facility] Work Phone: 11-13-2021 15:41-0400 SaO2% (BldA) [Mass fraction] 98 % [facility] Work Phone: 11-13-2021 15:41-0400 Systolic blood pressure 128 mm[Hg] [facility] Work Phone: 11-02-2021 22:04-0400 Diastolic blood pressure 78 mm[Hg] [facility] Work Phone: 11-02-2021 22:04-0400 Heart rate 98 /min [facility] Work Phone: 11-02-2021 22:04-0400 Respiratory rate 17 /min [facility] Work Phone: 11-02-2021 22:04-0400 SaO2% (BldA) [Mass fraction] 98 % [facility] Work Phone: 11-02-2021 22:04-0400 Systolic blood pressure 130 mm[Hg] [facility] Work Phone: 11-02-2021 20:56-0400 Body height 162.56 cm [facility] Work Phone: 11-02-2021 20:56-0400 Body mass index (BMI) [Ratio] 20.5 kg/m2 [facility] Work Phone: 11-02-2021 20:56-0400 Body temperature 98 [degF] [facility] Work Phone: 11-02-2021 20:56-0400 Body weight 54.43 kg [facility] Work Phone: Encounters Encounter Date Encounter Type Care Provider Facility Start: 08-20-2024 Evaluation and management of inpatient Dr. Dex Sutherland MD Work Phone: [facility] Work Phone: Start: 08-20-2024 Dr. Lopez Larios DO -Progressive Care Unit Work Phone: Start: 08-15-2024 End: 08-15-2024 Office outpatient new 60 minutes Radu Pedraza MD Work Phone: [facility] Comment on above: Hypertrophic cardiom egaly (Primary Dx); Chronic heart failure with preserved ejection fraction (HFpEF); Cardiomyopathy, hypertrophic nonobstructive (Multi); History of pulmonary embolism; Other ascites; Atypical chest pain Start: 08-15-2024 End: 08-15-2024 ambulatory RADU PEDRAZA [facility] Start: 08-11-2024 End: 08-11-2024 Dr. Dex Sutherland MD Work Phone: -Emergency Department Work Phone: Start: 08-11-2024 End: 08-11-2024 Emergency department patient visit Dr. Dex Sutherland MD Work Phone: [facility] Work Phone: Start: 08-10-2024 End: 08-10-2024 ambulatory Suman Coburn Clinical Communication Start: 08-10-2024 End: 08-10-2024 Patient encounter procedure Suman Coburn Clinical Communication Start: 08-09-2024 End: 08-09-2024 Quanglawrence Myles DO -Laboratory Specimen Work Phone: Start: 08-08-2024 End: 08-08-[address] Dex Sutherland MD Work Phone: [facility] Work Phone: Start: 08-08-2024 End: 08-08-2024 Quang Myles DO -Laboratory Work Phone: Start: 08-08-2024 End: 08-08-2024 Patient encounter procedure Quanglawrence Myles DO -[facility] Work Phone: Start: 08-08-2024 End: 08-08-2024 Quang Myles DO -[facility] Work Phone: Start: 08-08-2024 End: 08-09-[address] Dex Sutherland MD Work Phone: [facility] Work Phone: Start: 08-08-2024 End: 08-08-2024 ambulatory Dex Sutherland Facility:[facility] Start: 07-30-2024 End: 07-30-2024 Patient Outreach Quynh Chang [facility] Work Phone: Pharmacy Comment on above: Transition Of Care ( TCM Pharmacy-Hospital discharge 07/27/24/) Start: 07-26-2024 End: 07-26-2024 Evaluation and management of inpatient Pulm Fct Lab J-2 Pulmonary Medicine Comment on above: Preoperative examina tion, unspecified (Primary Dx) Start: 07-26-2024 End: 07-26-2024 Preprocedural examination done Pulm J-2 [facility] Start: 07-25-2024 End: 07-25-2024 Evaluation and management of inpatient Ip Transesophageal Echo Cardiology Comment on above: History of transesop hageal echocardiography (MICKI) (Primary Dx) Start: 07-24-2024 End: 07-27-2024 Evaluation and management of inpatient [facility] Facility:[facility] Start: 07-24-2024 Non-patient / Non-visit Dr. Willian Salcedo pia DO -[facility] Work Phone: Start: 07-24-2024 Dr. Willian Ovalles DO -[facility] Work Phone: Start: 07-23-2024 ambulatory Dex Sutherland Facili ty:[facility] Start: 07-23-2024 ambulatory Dex Sutherland Facili ty:[facility] Start: 07-23-2024 Non-patient / Non-visit Dr. Mercy Bishop MD -[facility] Start: 07-23-2024 Dr. Mercy Bishop MD [facility] Start: 07-22-2024 Non-patient / Non-visit Dr. Saman ureña MD -[facility] Start: 07-22-2024 Dr. Saman Clay MD [facility] Start: 07-22-2024 Non-patient / Non-visit Dr. Willian ritter DO -[facility] Work Phone: Start: 07-22-2024 Dr. Willian [facility] Work Phone: Start: 07-21-2024 Non-patient / Non-visit Dr. Saman ureña MD -[facility] Start: 07-21-2024 Dr. Saman Clay MD [facility] Start: 07-21-2024 Non-patient / Non-visit Dr. Willian ritter DO -[facility] Work Phone: Start: 07-21-2024 Dr. Willian [facility] Work Phone: Start: 07-21-2024 ambulatory Dex Sutherland Facili ty:[facility] Start: 07-21-2024 End: 07-24-2024 Dr. [facility] Work Phone: Start: 07-20-2024 End: 07-24-2024 Evaluation and management of inpatient Dr. Sergio Umaña DO -Progressive Care Unit Work Phone: Start: 07-12-2024 ambulatory Dex Sutherland Facili ty:[facility] Start: 07-12-2024 Non-patient / Non-visit Quang Barragan nd DO -[facility] Start: 07-12-2024 Quang Shameka DO -[facility] Start: 07-12-2024 End: 07-12-2024 Admission to same day surgery center Quanglawrence Myles DO -Endoscopy Work Phone: Start: 07-12-2024 End: 07-12-2024 Quang Myles DO -Endoscopy Work Phone: Start: 07-12-2024 End: 07-12-2024 ambulatory [facility] Facility:[facility] Start: 07-10-2024 End: 07-10-2024 Patient encounter procedure Xochitl BUCKLEY -[facility] Work Phone: Start: 07-10-2024 End: 07-10-2024 Xochitl BUCKLEY [facility] Work Phone: Start: 07-10-2024 End: 07-10-2024 ambulatory Maury Sutherland Facility:[facility] Start: 07-06-2024 End: 07-06-2024 Evaluation and management of inpatient UNKNOWN PROVIDER Facility:[facility] Start: 07-04-2024 End: 07-08-2024 Evaluation and management of inpatient UNKNOWN PROVIDER Facility:[facility] Start: 07-04-2024 End: 07-04-2024 ambulatory [facility] Facility:[facility] Start: 07-04-2024 End: 07-04-[address] Jose Francisco Santamaria MD -[facility] Work Phone: Start: 07-04-2024 End: 07-04-2024 Dr. Jose Francisco Santamaria MD -[facility] Work Phone: Start: 07-03-2024 End: 07-03-2024 Emergency department patient visit Dr. Nabor Frey DO -Emergency Department Work Phone: Start: 07-03-2024 End: 07-03-2024 Patient encounter procedure Bárbara BUCKLEY -[facility] Work Phone: Start: 07-03-2024 End: 07-03-2024 Dr. Nabor Frey DO -Emergency Departme nt Work Phone: Start: 07-03-2024 End: 07-03-2024 ambulatory [facility] Facility:[facility] Start: 07-01-2024 End: 07-01-2024 Babar Israel DO -Emergency Departmen t Work Phone: Start: 07-01-2024 End: 07-01-2024 Emergency department patient visit Dr. Dex Sutherland MD Work Phone: -Emergency Department Work Phone: Start: 07-01-2024 End: 07-01-2024 ambulatory Ella Cohen RN [facility] Clinical Communication Start: 07-01-2024 End: 07-01-2024 Patient encounter procedure Ella [facility] Start: 05-15-2024 End: 05-21-2024 Evaluation and management of inpatient UNKNOWN PROVIDER Facility:[facility] Start: 05-11-2024 End: 05-12-2024 Dr. Bimal Cortez MD -Emergency Departm ent Work Phone: Start: 05-11-2024 End: 05-12-2024 Emergency department patient visit Dr. Bimal Cortez MD -Emergency Department Work Phone: Start: 03-28-2024 End: 03-28-2024 ambulatory [facility] Facility:[facility] Start: 03-28-2024 End: 03-28-[address] Jose Francisco Santamaria MD -[facility] Work Phone: Start: 11-23-2023 End: 11-23-2023 ambulatory [facility] Facility:[facility] Start: 11-01-2023 End: 11-02-2023 Emergency department patient visit Babar Jeffriesabdirashid Facility:[facility] Start: 10-31-2023 End: 10-31-[address] VICTOR M ORTIZ MD Facility:[facility] Start: 10-31-2023 End: 10-31-[address] VICTOR M ORTIZ MD [facility] Start: 09-13-2023 ambulatory Dex Sutherland Facili ty:[facility] Start: 09-13-2023 End: 09-13-2023 ambulatory Dex Sutherland Facility:[facility] Start: 07-04-2023 End: 07-04-2023 Emergency department patient visit [facility]-Emergency Department Work Phone: Start: 07-04-2023 ambulatory Angela Krishna RN [facility] Start: 07-04-2023 Patient encounter procedure Angela Krishna RN [facility] Start: 12-25-2022 End: 12-26-2022 [facility] Start: 03-09-2022 End: 03-09-2022 [facility] Start: 12-16-2021 End: 12-17-2021 Emergency department patient visit [facility] Start: 11-13-2021 End: 11-13-2021 Emergency department patient visit [facility]Emergency Department Start: 11-02-2021 End: 11-02-2021 Emergency department patient visit [facility]-Emergency Department Start: 08-25-2017 End: 08-25-2017 [facility] Procedures Date Procedure Procedure Detail Performing Clinician Start: 08-20-2024 X-ray of chest, PA a nd lateral views Dr. Dex Sutherland MD Work Phone: Start: 08-20-[address] Dex Sutherland MD Work Phone: Start: 08-20-2024 Urine microscopy: red cells Dr. Dex Sutherland MD Work Phone: Start: 08-20-2024 Urnls dip stick/tabl et reagent auto microscopy Dr. Dex Sutherland MD Work Phone: Start: 08-20-2024 Blood count smear mc rscp w/mnl difrntl wbc count Dr. Dex Sutherland MD Work Phone: Start: 08-20-[address] Dex Sutherland MD Work Phone: Start: 08-20-2024 Mean corpuscular hem oglobin concentration determination Dr. Dex Sutherland MD Work Phone: Start: 08-20-2024 Nucleated red blood cell count procedure Dr. Dex Sutherland MD Work Phone: Start: 08-20-2024 Platelet mean volume determination Dr. Dex Sutherland MD Work Phone: Start: 08-20-2024 Tri[address]ol lipa se measurement Dr. Dex Sutherland MD Work Phone: Start: 08-11-2024 End: 08-11-[address] Dex Sutherland MD Work Phone: Start: 08-11-2024 CT of abdomen and pe lvis without contrast Dr. Dex Sutherland MD Work Phone: Start: 08-11-[address] Dex Sutherland MD Work Phone: Start: 08-11-2024 Mean corpuscular hem oglobin concentration determination Dr. Dex Sutherland MD Work Phone: Start: 08-11-2024 Nucleated red blood cell count procedure Dr. Dex Sutherland MD Work Phone: Start: 08-11-2024 Platelet mean volume determination Dr. Dex Sutherland MD Work Phone: Start: 08-11-2024 Triacylglycerol lipa se measurement Dr. Dex Sutherland MD Work Phone: Start: 08-11-2024 Urine microscopy: red cells Dr. Dex Sutherland MD Work Phone: Start: 08-11-2024 Urnls dip stick/tabl et reagent auto microscopy Dr. Dex Sutherland MD Work Phone: Start: 08-09-2024 Clostridium difficil e detection Dr. Dex Sutherland MD Work Phone: Start: 08-09-[address] Dex Sutherland MD Work Phone: Start: 08-09-[address] Dex Sutherland MD Work Phone: Start: 08-09-2024 Ova [place] parasites identification Dr. Dex Sutherland MD Work Phone: Start: 08-09-2024 Iadna-dna/rna gi pth gn multiplex probe tq 6-11 Dr. Dex Sutherland MD Work Phone: Start: 08-09-2024 [address]ol lipa se measurement Dr. Dex Sutherland MD Work Phone: Start: 08-08-2024 Albumin/Globulin ratio Dr. Dex Sutherland MD Work Phone: Start: 08-08-[address] Grace Sutherland MD Work Phone: Start: 08-08-2024 Antibody to centrome re measurement Dr. Dex Sutherland MD Work Phone: Start: 08-08-2024 Antibody to extracta ble nuclear antigen measurement Dr. Dex Sutherland MD Work Phone: Start: 08-08-2024 Antibody to RAISSA-[address] Dex Sutherland MD Work Phone: Start: 08-08-2024 Antibody to lupus La protein measurement Dr. Dex Sutherland MD Work Phone: Start: 08-08-2024 Antibody to SS-A measurement Dr. Dex Sutherland MD Work Phone: Start: 08-08-[address] Dex Sutherland MD Work Phone: Start: 08-08-2024 Blood count smear mc rscp w/mnl difrntl wbc count Dr. Dex Sutherland MD Work Phone: Start: 08-08-2024 Calculation of inter national normalized ratio Dr. Dex Sutherland MD Work Phone: Start: 08-08-[address] Dex Sutherland MD Work Phone: Start: 08-08-2024 Copper measurement, serum Dr. Dex Sutherland MD Work Phone: Start: 08-08-2024 Endomysial antibody IgA level Dr. Dex Sutherland MD Work Phone: Start: 08-08-[address] Dex Sutherland MD Work Phone: Start: 08-08-2024 Immunoglobulin G sub class, G4 measurement Dr. Dex Sutherland MD Work Phone: Start: 08-08-[address] measurement Dr. Dex Sutherland MD Work Phone: Start: 08-08-2024 Mean corpuscular hem oglobin concentration determination Dr. Dex Sutherland MD Work Phone: Start: 08-08-[address] Dex Sutherland MD Work Phone: Start: 08-08-2024 Nucleated red blood cell count procedure Dr. Dex Sutherland MD Work Phone: Start: 08-08-2024 Platelet mean volume determination Dr. Dex Sutherland MD Work Phone: Start: 08-08-2024 GRAPHIC EDITOR antibody measurement Dr. Dex Sutherland MD Work Phone: Start: 08-08-[address] Dex Sutherland MD Work Phone: Start: 08-08-[address] Raissa Sutherland MD Work Phone: Start: 08-08-[address] Dex Sutherland MD Work Phone: Start: 07-24-2024 Antibody screen [facility] Comment on above: Order Comment: Speci men Type: BLOOD SPECIMEN Ordering Facility: [facility] Address: [address] [place] [address] Performed By: #### 2 [id number], [id number] #### [facility] CLIA [id number] [address] [place] [address] [facility] Start: 07-23-2024 Blood count smear mc rscp w/mnl difrntl wbc count Dr. Dex Sutherland MD Work Phone: Start: 07-23-[address] Dex Sutherland MD Work Phone: Start: 07-23-2024 Mean corpuscular hem oglobin concentration determination Dr. Dex Sutherland MD Work Phone: Start: 07-23-2024 Nucleated red blood cell count procedure Dr. Dex Sutherland MD Work Phone: Start: 07-23-2024 Platelet mean volume determination Dr. Dex Sutherland MD Work Phone: Start: 07-22-[address] Kd Sutherland MD Work Phone: Start: 07-21-[address] Dex Sutherland MD Work Phone: Start: 07-21-2024 Serum inorganic phos phate measurement Dr. Dex Sutherland MD Work Phone: Start: 07-21-2024 Total cholesterol:HD L ratio measurement Dr. Dex Sutherland MD Work Phone: Start: 07-20-2024 Computed tomography of abdomen and pelvis with intravenous contrast Dr. Dex Sutherland MD Work Phone: Start: 07-20-2024 CT angiography of ch est with contrast Dr. Dex Sutherland MD Work Phone: Start: 07-20-2024 Plain chest X-ray Dr. Angelo Sutherland MD Work Phone: Start: 07-20-2024 Urine microscopy: red cells Dr. Dex Sutherland MD Work Phone: Start: 07-20-2024 Urnls dip stick/tabl et reagent auto microscopy Dr. Dex Sutherland MD Work Phone: Start: 07-20-2024 D-dimer assay, quantitative Dr. Dex Sutheralnd MD Work Phone: Comment on above: D-Dimer ELEVATED (>0 .49): Additional studies and clinicalassessments are indicated to conclude diagnosis of:Deep Vein Thrombosis (DVT) or Pulmonary Embolism (PE)CRITICAL VALUE CALLED TO 07/20/242006 Fred Aguilera.RESULTS READ BACK BY SAME. Start: 07-20-[address] Dex Sutherland MD Work Phone: Start: 07-20-[address] se measurement Dr. Dex Sutherland MD Work Phone: Start: 07-12-[address] Dex Sutherland MD Work Phone: Start: 07-10-2024 Evaluation of diagno stic study results Dr. Dex Sutherland MD Work Phone: Start: 07-03-2024 Urine microscopy: red cells Dr. Dex Sutherland MD Work Phone: Start: 07-03-2024 Urnls dip stick/tabl et reagent auto microscopy Dr. Dex Sutherland MD Work Phone: Start: 07-03-2024 Computed tomography of abdomen and pelvis with intravenous contrast Dr. Dex Sutherland MD Work Phone: Start: 07-03-2024 Blood count smear [facility] w/mnl difrntl wbc count Dr. Dex Sutherland MD Work Phone: Start: 07-03-[address] Dex Sutherland MD Work Phone: Start: 07-03-2024 Mean corpuscular hem oglobin concentration determination Dr. Dex Sutherland MD Work Phone: Start: 07-03-2024 Nucleated red blood cell count procedure Dr. Dex Sutherland MD Work Phone: Start: 07-03-2024 Platelet mean volume determination Dr. Dex Sutherland MD Work Phone: Start: 07-03-[address] se measurement Dr. Dex Sutherland MD Work Phone: Start: 07-01-2024 Urine microscopy: red cells Dr. Dex Sutherland MD Work Phone: Start: 07-01-2024 Urnls dip stick/tabl et reagent auto microscopy Dr. Dex Sutherland MD Work Phone: Start: 07-01-2024 Blood count smear mc rscp w/mnl difrntl wbc count Dr. Dex Sutherland MD Work Phone: Start: 07-01-[address] Dex Sutherland MD Work Phone: Start: 07-01-2024 Mean corpuscular hem oglobin concentration determination Dr. Dex Sutherland MD Work Phone: Start: 07-01-2024 Nucleated red blood cell count procedure Dr. Dex Sutherland MD Work Phone: Start: 07-01-2024 Platelet mean volume determination Dr. Dex Sutherland MD Work Phone: Start: 07-01-[address] se measurement [address]. Dex Sutherland MD Work Phone: Start: 07-01-2024 Computed tomography of abdomen and pelvis with intravenous contrast Dr. Dex Sutherland MD Work Phone: Start: 07-04-2023 Plain chest X-ray Start: 07-04-2023 Computed tomography of abdomen and pelvis with intravenous contrast Start: 12-26-2022 CT angiography of ch est with contrast Start: 12-25-2022 Plain chest X-ray Start: 03-09-2022 Radiologic examination of knee Start: 12-16-2021 Plain chest X-ray Start: 03-22-2020 Follow-up visit Start: 12-23-2016 Mammography Radu hall MD Work Phone: H/O: tubal ligation DR LONI ORTIZ MD History of appendectomy DR Mika ORTIZ MD Insertion of cardiac defibrillator using fluoroscopic guidance DR VICTOR M ORTIZ MD Comment on above: PACER WITH DEFIB Laparoscopic anastom osis of gallbladder to intestine DR VICTOR M ORTIZ MD Mastectomy of left breast DR VICTOR M ORTIZ MD MRI guided ablation of uterine fibroid DR VICTOR M ORTIZ MD Plan of Treatment Date Care Activity Detail Author Start: 09-15-2029 Zoster Vaccines (1 of 2) Zoste r Vaccines (1 of 2) [facility] Start: 07-25-2025 Diabetes mellitus screening Diabetes Screening [facility] Start: 11-21-2024 End: 11-21-2024 Patient encounter procedure 11/21/2024 10:30 AM EDT Office Visit [facility] [address] [place] [address] Radu Pedraza MD [address] [facility] [address] [place] [address] [facility] Start: 11-12-2024 Influenza vaccination Influenz a Vaccine (Season Ended) [facility] Start: 08-28-2024 ambulatory Facility:[facility] Start: 08-27-2024 ambulatory Facility:[facility] Start: 08-20-2024 Hospital admission, emergency, from emergency room, medical nature [facility] Start: 08-20-2024 Verification routine [facility] Start: 08-20-2024 Admission procedure [facility] Start: 08-11-2024 [facility] Start: 08-09-2024 [facility] Start: 08-09-2024 Ova OR parasites identification [facility] Start: 08-08-2024 [facility] Start: 07-26-2024 End: 07-26-2024 Patient encounter procedure Pulmonary Medicine Comment on above: NEEDS TRANSPORT IP AO, RA, NO DRIPS, REG WC, NO PRECAUTIONS/FEVERS //KP Start: 07-24-2024 [address]xygen therapy [facility] Start: 07-24-2024 Patient discharge [facility] Start: 07-23-2024 Referral to gastroenterology service [facility] Start: 07-22-2024 Bacteria identified in Blood by Culture Blood Culture [facility] Start: 07-22-2024 End: 07-22-[address] [facility] Start: 07-22-2024 Inhalation therapy procedure [facility] Start: 07-21-2024 Provision of activit y privileges [facility] Start: 07-21-2024 Following clinical p athway protocol [facility] Start: 07-21-2024 Assessment of risk o f venous thromboembolism [facility] Start: 07-21-2024 Catheterization of vein [facility] Start: 07-21-2024 Insertion of cathete r into peripheral vein [facility] Start: 07-21-2024 Measuring intake and output [facility] Start: 07-21-2024 Providing care accor ding to standard [facility] Start: 07-21-2024 Provision of activit y privileges [facility] Start: 07-21-2024 Referral to gate shear operator [facility] Start: 07-21-2024 Referral to service [facility] Start: 07-21-2024 [facility] Start: 07-21-2024 Verification routine [facility] Start: 07-21-2024 Admission procedure [facility] Start: 07-20-2024 Hospital admission, emergency, from emergency room, medical nature [facility] Start: 07-20-2024 [facility] Start: 07-12-2024 Colonoscopy w/biopsy single/multiple [facility] Start: 07-12-2024 Endoscopy upper smal l intestine w/biopsy [facility] Start: 07-12-2024 Patient discharge [facility] Start: 07-03-2024 [facility] Start: 07-01-2024 [facility] Start: 05-12-2024 [facility] Start: 02-08-2024 Screening for malign ant neoplasm of cervix Cervical Cancer Screening [facility] Start: 11-13-2023 Covid-19 Vaccine () Covid-19 Vaccine () [facility] Start: 07-04-2023 [facility] Start: 12-26-2022 [facility] Start: 12-26-2022 [facility] Start: 12-25-2022 [facility] Start: 11-07-2022 Urine microalbumin profile DTa P,Tdap,Td Vaccine (2 - Td or Tdap) [facility] Start: 12-16-2021 [facility] Work Phone: Start: 2019 Screening for malign ant neoplasm of breast [facility] Start: 04-05-2012 Pneumococcal vaccination Pneum ococcal Vaccine (2 of 2 - PCV) [facility] Start: 04-05-2012 Pneumococcal Vaccine : Pediatrics and At-Risk Adult Patients (2 of 2 - PCV) Pneumococcal Vaccine: Pediatrics and At-Risk Adult Patients (2 of 2 - PCV) [facility] Start: 09-15-2001 DTaP/Tdap/Td Vaccine s (1 - Tdap) DTaP/Tdap/Td Vaccines (1 - Tdap) [facility] Start: 09-15-2000 Screening for malign ant neoplasm of cervix [facility] Start: 09-15-1998 Hepatitis A Vaccines (1 of 2 - Risk 2-dose series) Hepatitis A Vaccines (1 of 2 - Risk 2-dose series) [facility] Start: 09-15-1998 Hepatitis B Vaccine (1 of 3 - 19+ 3-dose series) Hepatitis B Vaccine (1 of 3 - 19+ 3-dose series) [facility] Start: 09-15-1998 Hepatitis B Vaccines (1 of 3 - 19+ 3-dose series) Hepatitis B Vaccines (1 of 3 - 19+ 3-dose series) [facility] Start: 09-15-1997 Annual PCP Team Guest Service Team Leader florin Disease Visit Annual PCP Team Chronic Disease Visit [facility] Start: 09-15-1997 Depression Screening Depression Scre ening [facility] Start: 09-15-1997 Hepatitis C screening Hepatitis C Sc vicenta [facility] Start: 09-15-1997 HIV [facility] Start: 09-15-1980 MMR Vaccines (1 of 1 - Standard series) MMR Vaccines (1 of 1 - Standard series) [facility] Start: 1979 Creatinine measurement Creatinine Le carrington [facility] Start: 1979 Echocardiography Echocardiogram [facility] Start: 1979 HIV screening HIV Screening [facility] Start: 1979 Lipid panel Lipid Panel [facility] Start: 1979 Potassium measurement Potassium Leve l [facility] Start: 1979 Yearly Adult Physical Yearly Adult P hysical [facility] Angiotensin converti ng enzyme [Enzymatic activity/volume] in Serum or Plasma [facility] Antibody to lupus La protein measurement [facility] Antibody to SS-A measurement [facility] Blood ammonia measurement [facility] C reactive protein [Mass/volume] in Serum or Plasma [facility] CBC W Auto Different ial panel - Blood [facility] Celiac disease screen [facility] Ceruloplasmin [Mass/volume] in Serum or Plasma [facility] Clam IgE Ab [Units/v olume] in Serum [facility] Clostridioides diffi cile DNA [Presence] in Unspecified specimen by BIMAL with probe detection [facility] Codfish IgE Ab [Units/volume] in Serum [facility] Colonoscopy [facility] Comprehensive metabo lic 2000 panel - Serum or Plasma [facility] Copper [Moles/volume ] in Serum or Plasma [facility] [place] IgE Ab [Units/v olume] in Serum [facility] Cow milk IgE Ab [Units/volume] in Serum [facility] DNA double strand Ab [Units/volume] in Serum [facility] Egg white RAST [facility] Erythrocyte sediment ation rate [facility] Ferritin [Mass/volum e] in Serum or Plasma [facility] Gastrin [Mass/volume ] in Serum or Plasma [facility] Giardia lamblia Ag [Presence] in Stool by Immunoassay [facility] Haptoglobin [Mass/vo lume] in Serum or Plasma [facility] Hemoglobin A1c/Hemoglobin.total in Blood [facility] IgG subclass panel [Mass/volume] - Serum [facility] Immunoglobulin measurement [facility] Iron [Mass/mass] in Unspecified specimen [facility] Lactate dehydrogenas e measurement [facility] Lactoferrin [Presenc e] in Stool by Immunoassay [facility] Magnesium measurement [facility] MR Biliary ducts and Pancreatic duct WO [facility] MRI of small intestine [facility] Nucleic acid assay [facility] Ova OR parasites identification [facility] Patient Education [facility] Work Phone: Patient referral [facility] Work Phone: Peanut IgE Ab [Units/volume] in Serum [facility] Protein measurement [facility] Prothrombin time [facility] Radionuclide gastric emptying study [facility] Reticulocyte count [facility] Scallop RAST [facility] Serum immunofixation [facility] Sesame seed RAST [facility] Shrimp IgE Ab [Units/volume] in Serum [facility] Soybean IgE Ab [Units/volume] in Serum [facility] Thyroid stimulating hormone measurement [facility] US Heart [facility] Bad Axe [facility] Wheat IgE Ab [Units/volume] in Serum [facility] Immunizations Immunization Date Immunization Notes Care Provider [facility] 08-01-2020 Covid (Moderna) Dr. Dex Sutherland MD Work Phone: [facility] 07-01-2020 Covid (Moderna) Dr. Dex Sutherland MD Work Phone: [facility] 01-28-2020 influenza virus vacc ine, unspecified formulation [facility] 01-12-2014 influenza, seasonal, injectable, preservative free [facility] Work Phone: 01-12-2014 influenza virus vacc ine, unspecified formulation Radu Pedraza MD Work Phone: [facility] Work Phone: 01-03-2013 influenza virus vacc ine, unspecified formulation [facility] 04-05-2011 pneumococcal polysaccharide vaccine, [address] [facility] 12-16-2008 influenza virus vacc ine, unspecified formulation [facility] Work Phone: Payers Date Payer Category Payer Managed Care (Private) [employer] [id number] 2024 Unknown [id number] 2023 Self-pay 2023 [employer] Blue Shield BLUE ACCE PPO [id number] 2023 Unknown [id number] 1979 Unknown [id number] .[id number]. 627 1979 Unknown [id number] .1.554833.3.579.2. 1247 Unknown [employer] [id number] Unknown [id number] .1.911403.3.579.2. 462 Unknown [id number] .1.681639.3.579.2. 462 Unknown [id number] .1.336372.3.579.2. 462 Unknown [id number] 2.16.840.1.650157.3.579.2. 462 Unknown [id number] 2.16.840.1.306169.3.579.2. 462 Unknown [id number] 2.16.840.1.592817.3.579.2. 462 Unknown [id number] 2.16.840.1.872398.3.579.2. 462 Unknown [id number] 2.16.840.1.977719.3.579.2. 462 Unknown [id number] 2.16.840.1.931357.3.579.2. 462 Unknown [id number] 2.16840.1.643390.3.579.2. 462 Unknown [id number] 2.840.1.901030.3.579.2. 462 Unknown [id number] 2.840.1.370423.3.579.2. 462 Unknown [id number] 2..840.1.868453.3.579.2. 462 Unknown [id number] 2.840.1.442697.3.579.2. 462 Unknown [id number] 2.16.840.1.194331.3.579.2. 462 Unknown [id number] 2.16840.1.342588.3.579.2. 462 Unknown [id number] 2.840.1.797253.3.579.2. 462 Unknown [id number] 2.16.840.1.769019.3.579.2. 462 Unknown [id number] 2.16.840.1.408709.3.579.2. 462 Unknown [id number] 2.16.840.1.353883.3.579.2. 462 Unknown [id number] 2.16.840.1.907711.3.579.2. 462 Unknown [id number] 2.16840.1.840208.3.579.2. 462 Unknown [id number] 2.16.840.1.725111.3.579.2. 462 Unknown [id number] 2.16.840.1.893807.3.579.2. 462 Unknown [id number] 2.16.840.1.760666.3.579.2. 462 Unknown [id number] 2.16.840.1.553875.3.579.2. 462 Unknown [id number] 2.16.840.1.258969.3.579.2. 462 Unknown [id number] 2.16.840.1.380715.3.579.2. 462 Unknown [id number] 2.16.840.1.346775.3.579.2. 462 Unknown [id number] 2.16.840.1.518866.3.579.2. 462 Unknown [id number] 2.16.840.1.278518.3.579.2. 462 Unknown [id number] 2.16.840.1.253291.3.579.2. 462 Unknown [id number] 2.16.840.1.464816.3.579.2. 462 Unknown [id number] 2.16.840.1.024553.3.579.2. 462 Social History Date Type Detail Facility [facility] Work Phone: Start: 11-02-2021 End: 07-04-2023 Tobacco smoking status NHIS Unknown if ever smoked [facility] Start: 1980 Sex Assigned At Female [facility] Start: 1979 Sex Assigned At Not on file [facility] Start: 07-25-2024 End: 08-15-2024 Gender identity Not on file [facility] Start: 10-31-2023 Tobacco smoking status Light tobacco smoker (finding) [facility] Start: 10-12-2021 End: 07-01-2024 Sex Female (finding) [facility] Start: 07-01-2024 End: 08-20-2024 Tobacco smoking status NHIS Smokes tobacco daily (finding) [facility] Start: 03-14-1982 History of tobacco use Cigarette Smoker [facility] Start: 04-16-2020 End: 08-15-2024 Cigarettes smoked current (pack per day) - Reported 0.3 [facility] Start: 04-16-2020 End: 08-15-2024 Tobacco use and exposure Smokeless tobacco non-user [facility] Start: 07-25-2024 Alcoholic beverage intake Current non-drinker of alcohol (finding) [facility] Has the [employer], gas, oil, or water [employer] threatened to shut off services in your home in past 12Mo No [facility] PHQ2 Score 0 [place] Anna Marie maier (I/We) worried whether (my/our) food would run out before (I/we) got money to buy more. Never true [facility] Start: 09-18-2018 Tobacco Comment since age 12 yrs [facility] Start: 08-05-2024 End: 08-15-2024 Exposure to SARS-CoV-2 (event) Not sure [facility] NEGATED: Highlighted row Not [facility] Medical Equipment Procedure Code Equipment Code Equipment Origin al Text Equipment Identifier Dates [id number] Visi a Af Mri [id number] Start: 10-29-2016 Lead Sprint Quat tro Secure S 55cm Pacing Df-4 Tripolar Screw Defibrillator - [id number] Start: 10-29-2016 Comment on above: Description: Right v entrical lead Defib-Vr [id number] Visia Mri Af - [id number] Start: 10-29-2016 Goals Date Patient Goal Desired Activity /State Functional Status Date Assessment Result Facility 07-27-2024 Are you deaf, or do you have serious difficulty hearing No 07/27/2024 9:19 AM Zaida Morales RN [facility] 07-27-2024 Are you blind, or do you have serious difficulty seeing, even when wearing glasses No 07/27/2024 9:19 AM Zaida Morales RN [facility] 07-27-2024 Do you have serious difficulty walking or climbing stairs No 07/27/2024 9:19 AM Zaida Morales, JAJA No [facility] 07-27-2024 Do you have difficul ty dressing or bathing No 07/27/2024 9:19 AM Zaida Morales, JAJA No [facility] 07-27-2024 Because of a physica l, mental, or emotional condition, do you have difficulty doing errands alone such as visiting a physician's office or shopping No 07/27/2024 9:19 AM Zaida Morales, JAJA No [facility] 07-24-2024 Functional status Up ad petey [facility] Work Phone: 07-22-2024 Functional status Well [facility] Work Phone: 07-08-2024 Are you deaf, or do you have serious difficulty hearing No 07/08/2024 3:50 PM Lor Zamorano RN No [facility] 07-08-2024 Are you blind, or do you have serious difficulty seeing, even when wearing glasses No 07/08/2024 3:50 PM Lor Zamorano RN No [facility] 07-08-2024 Do you have serious difficulty walking or climbing stairs No 07/08/2024 3:50 PM Lor Zamorano RN No [facility] 07-08-2024 Do you have difficul ty dressing or bathing No 07/08/2024 3:50 PM Lor Zamorano RN No [facility] 07-08-2024 Because of a physica l, mental, or emotional condition, do you have difficulty doing errands alone such as visiting a physician's office or shopping No 07/08/2024 3:50 PM Lor Zamorano RN No [facility] 10-31-2023 Functional Status Repositions self [facility] Mental Status Date Assessment Result Facility 07-27-2024 Because of a physica l, mental, or emotional condition, do you have serious difficulty concentrating, remembering, or making decisions No 07/27/2024 9:19 AM Zaida Morales, JAJA No [facility] 07-24-2024 Cognitive function Voice/Name [facility] Work Phone: 07-12-2024 Cognitive function Voice/Name [facility] Work Phone: 07-08-2024 Because of a physica l, mental, or emotional condition, do you have serious difficulty concentrating, remembering, or making decisions No 07/08/2024 3:50 PM EDT Lor Pham, JAJA No [facility] 05-12-2024 Cognitive function Awake;Alert;A ppropriate;Fol lows Commands [facility] Work Phone: 12-25-2022 Cognitive function Voice/Name [facility] Work Phone: 12-16-2021 Cognitive function Level Of Cons ciousness Awake;Alert;Appropriate;Fol lows Commands [facility] Work Phone: Clinical Notes 09-18-2020 to 08-20-2024 Radu Pedraza MD - 08/15/2024 11:00 AM Toby Noonan RN - 08/15/2024 11:00 AM EDTPatient InstructionsTelephone Encounter - Suman Cadena RN - 08/10/2024 10:42 PM EDT Note Date & Type Note Facility 08-20-2024 Radiology Diagnostic study note [facility] 08-20-2024 Radiology Diagnostic study note [facility] 08-15-2024 History of Present illness Narrative [facility] Note CHIEF COMPLAINT: No chief complaint on file. Primary Care Physician: No primary care provider on file. Field Marketing Associate- Dario ([facility]) GI- Friend HISTORY OF PRESENT ILLNESS: Michelle Mitchell is a 43 y.o. female with hypertrophic cardiomyopathy who presents as a new patient Briefly she was apparently diagnosed with hypertrophic cardiomyopathy after an episode of syncope underwent ICD placement in 2006 with lead revision in 2008, and then explant of the entire device with reimplantation in 2016, she was followed with a local gate shear operator Dr Bishop (was following at [facility] until she moved to [place] in 2021), notably she was admitted with chest pressure to [facility] in 2014 and 2016 felt to be due to her ICD, she did receive 1 dose of furosemide but overall was doing well from a cardiac standpoint. She was discharged on low dose BB but that was discontinued later apparently due to orthostasis. It appears that she was admitted with a leg abscess in May 2024 with an ER visit for abdominal pain the question of IBD was raised and she underwent a biopsy during EGD, she was admitted with dyspnea echocardiogram showing possible vegetation and was transferred to [facility], her blood cultures were negative and on extensive review of her imaging she had a echodensity on her right atrial lead felt to be due to the old device that was extracted in 2016, During admission she was also treated with furosemide a few times for heart failure and discharged on metoprolol, apparently was not discharged on a diuretic due to RADHA She does have evidence of liver enlargement, CRP was 16.8, she is being schedule for liver biopsy. Labs done last week show normal CBC Na 138, K 4.2, Cr 0.7, normal iron She did have normal bilirubin but mild hepatomegaly in 06/2024, scheduled for MRI and MRCP. Other medical problems include, history of PE, seen by vascular medicine not felt to need anticoagulation, history of breast cancer in 1998 treated with lumpectomy radiation and chemotherapy and ovarian cancer in 2006 treated with oophorectomy s/p BTL. Currently tolerating the metoprolol without dizziness this time since discharge. Mother had heart valve surgery no diagnosis of cardiomyopathy. Father has HCM and underwent transplant 2011, but after 3 months, sister was transplanted 2013 but being evaluated for retransplant, however she also had several paternal grandparents and 1 paternal aunt who of an early age. He has 2 children 19 and 22 who have been screening clinically, she has never had genetic testing but family has. 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 No edema but does have cough and bloating She has [id number] smoking history no alcohol no illicits. She takes Trintellis for anger issues, was on chantix in the past without problems but it was taken off the market. ICD issues : no shocks, 5 years of battery, [employer] single lead Monitors/restricts salt/fluid : not much Has scale and weighs self daily: up 8 pounds since discharge Has BP cuff and BPs at home: not really Allergies[1] CURRENT MEDICATIONS: Current Medications[2] Objective Problems: Problem List[3] Medical History: Medical History[4] has no past medical history on file. Surgical Hx: Surgical History[5] has no past surgical history on file. Social Hx: Tobacco Use: Not on file Alcohol Use: Not on file has no history on file for tobacco use, alcohol use, and drug use. Family Hx: Family History[6] family history is not on file. Allergies: RX Allergies[7] PHYSICAL EXAM: There is no height or weight on file to calculate BMI. TRENDS: Vitals: 03/22/2020 12:16 PM Vitals Systolic 113 Diastolic 63 Heart Rate 75 Temp 36.6 C (97.8 F) Resp 16 Height 1.626 m (5' 4) Weight (lb) 120 BMI 20.6 kg/m2 BSA (m2) 1.57 m2 WEIGHT TREND: Wt Readings from Last 5 Encounters: 03/22/20 54.4 kg (120 lb) Objective 43 y.o.year old female, awake alert orient X 3 in NAD CVP is elevated to 8 cm heart is regular no provokable murmur lungs are clear abdomen is slightly firm but mild right upper quadrant tenderness no more than trace edema LABS: RESUFAST(CHOL:1,HDL:1,LDLF:1,TRIG :1): No results found for: CHOL, HDL, LDLF, TRIG GETLABS(6M,2): No visits with results within 6 Month(s) from this visit. Latest known visit with results is: [facility] Encounter on 03/22/2020 Component Date Value SARS-CoV-2 Result 03/22/2020 NOT DETECTED Date of Symptom Onset? (* 03/22/2020 20,210,106 LABBRIEF(HGB:3) No results found for: HGB CMP:No results for input(s): NA, K, CL, CO2, ANIONGAP, BUN, CREATININE, EGFR, MG in the last 71667 hours.No results for input(s): ALBUMIN, ALKPHOS, ALT, AST, BILITOT, LIPASE in the last 04406 hours. No lab exists for component: CA CBC:No results for input(s): WBC, HGB, HCT, PLT, MCV in the last 09810 hours. HEME/ENDO:No results for input(s): FERRITIN, IRONSAT, TSH, HGBA1C in the last 56254 hours. CARDIAC: No results for input(s): LDH, CKMB, TROPHS, BNP in the last 88450 hours. No lab exists for component: CK, CKMBPNo results for input(s): CHOL, LDLF, HDL, TRIG in the last 52348 hours. No results found for: BNP DIAGNOSTIC STUDIES REVIEWED: EKG: sinus rhythm with LAE bifid p wave, septal q No results found for this or any previous visit (from the past 4464 hours). ECHO [facility] 07/25/24: filamentous echodensity on the RV lead in the right atrium, measuring ~1.4 cm which appears new from [facility] on 2016. Differential includes infectious versus fibrinous material. TTE: CONCLUSIONS: - Technically difficult exam due to patient discomfort. - Exam indication: Shortness of Breath - The left ventricle is normal in size. There is left ventricular hypertrophy. Left ventricular systolic function is normal. EF = 55 5% (visual est.) - The right ventricle is normal in size. Right ventricular systolic function is normal. - The left atrial cavity is dilated. - There is moderate (2+) tricuspid valve regurgitation. - Estimated right ventricular systolic pressure is 58 mmHg consistent with moderate pulmonary hypertension. Estimated right atrial pressure is 3 mmHg based on IVC assessment. - Mobile echodensity in RA measuring 0.9 x 0.7 cm - ? attached to the IAS vs. ICD - see clips 49, 78. - Exam was compared with the prior echocardiographic exam performed on 04/25/2021 ([facility]). Mobile echodensity reported today as above. [facility]ICKI may better assesss. CORONARY ANGIOGRAM CTPE(02/19/2017) 1. No evidence of acute pulmonary embolus. Stable chronic pulmonary embolus in the right lower lobe. CTPE (12/28/2016) Evaluation for thromboembolic disease: - Right heart chambers: No thromboembolic disease. - Main pulmonary arteries: No thromboembolic disease. - Lobar pulmonary arteries: No thromboembolic disease. - Segmental pulmonary arteries: No thromboembolic disease. - Subsegmental pulmonary arteries: There is thrombus in a subsegmental branch of the pulmonary artery to the posterior right lower lobe which was also present on the prior study. CTPE (11/29/2016) valuation for thromboembolic disease: - Right heart chambers: No thromboembolic disease. - Main pulmonary arteries: No thromboembolic disease. - Lobar pulmonary arteries: No thromboembolic disease. - Segmental pulmonary arteries: Right lower lobe filling defect - Subsegmental pulmonary arteries: Right lower lobe filling defects ASSESSMENT AND PLAN: Problem List[8] Hypertrophic cardiomyopathy at this point the diagnosis seems well-established based on the prior imaging, strong family history and positive genetic testing although she herself has not undergone it Unable to determine 100% but it seems as if she has shifted into a restrictive phenotype even in the past I do not see any evidence or report of obstruction on her imaging Reasonable to continue with the beta-krishan but will add MRA plus SGLT2 to help with the volume retention, we did briefly touched on transplant as a potential long-term option she is familiar with this from her family medical history also asked if she could obtain the genetic testing results from her family would eventually like to offer cascade testing to her children History of pulmonary embolism she is seen by vascular medicine in the hospital was felt to be a provoked PE no longer needing anticoagulation Question of lead vegetation this was extensively evaluated at [facility] 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 Chest pain intermittent and somewhat longstanding without overt evidence of coronary disease Tobacco use we discussed for 5 minutes today- she previously did well on Chantix, she is currently taking Trintellix but does not have a history of depression I think would be reasonable to prescribe Chantix again with a risk-benefit discussion although I would like her to talk to her PCP first I discussed heart failure therapeutic options, including: medical therapy, salt and fluid restriction, the need to monitor BP and weight, exercise and weight loss, smoking cessation, need to control hypertension, follow up and medication changes. I spent 75 minutes coordinating care, reviewing EKG, imaging, outside records and discussing options and adjusting medications. I discussed with patient and other providers I spent >50 percent of the time counseling the patient and discussing the diagnosis, general prognosis and plan of care with the patient Orders placed during the encounter: No orders of the defined types were placed in this encounter. Followup Appts: Future Appointments Date Time Provider Department Center 08/15/2024 11:00 AM Radu Perdaza MD [id number] [place] Radu De Dios IV, MD Heart Failure, Heart Transplant and Mechanical Circulatory Support [1] Not on File [2] No current outpatient medications on file. No current facility-administered medications for this visit. [3] There is no problem list on file for this patient. [4] No past medical history on file. [5] No past surgical history on file. [6] No family history on file. [7] Not on File [8] There is no problem list on file for this patient. 43 year old female here for cardiovascular evaluation of heart failure. PM/SHx: HFmrEF, Breast CA, endometrial CA, DVT/PE, HCM, ICD Social Hx: Current Smoker (0.5 PPD), ETOH, illicits Family Hx: Father had heart transplant Interval Hx: Currently denies chest pain. Patient has complaints of chest pressure. She rates this a 7/10. It is worse with activity. Patient has complaints of palpitations, dyspnea on exertion. Patient denies shortness of breath, orthopnea, positive PND. No edema noted in BLE. Patient does feel her abdomen is distended. Patient denies dizziness or recent falls. Patient has complaints of headaches. Hospitalizations: July 2024 at [facility] for ADHF. documented in this encounter [facility] Work Phone: 08-15-2024 Instructions Radu Pedraza MD - 08/15/2024 11:00 AM EDT To reach Dr. Pedraza's office please call [phone] ([place]). . Call [phone] to schedule an appointment. You may also contact the HF RNs at Thank you for coming to your appointment today. If you have any questions or need cardiac medication refills, please call the Heart Failure Office at [phone] option 6. Start spironolactone 25mg and jardiance 10mg (if affordable) Get labwork in the next 2-6 weeks (we can order if not ordered by your other doctors) Talk to Dr Sutherland about Chantix in the future Try to get genetic testing information from your family Return in 3 months documented in this encounter [facility] Work Phone: 08-11-2024 Radiology Diagnostic study note [facility] 08-10-2024 Telephone encounter Note S: Patient called the [facility] with complaints of back and abdominal pain. B: Symptoms began 15 minutes prior to call. A: Patient states she had a small bowel movement, and afterwards, begin having severe 8/10 back pain, radiating to abdomen, with severe nausea. Patient states she has been taking Motrin for relief of pain. In audible distress throughout call. 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 Denies recent injury, fever, dysuria, urinary retention, incontinence, weakness, numbness, or hematuria. R: Patient instructed to proceed to evaluation of severe, sudden onset pain. Patient verbalizes understanding, and states she will proceed to [place] [facility], and that her SO will drive her. Reason for Disposition Patient sounds very sick or weak to the triager Protocols used: Back [id number] [facility] 08-10-2024 Miscellaneous Notes S: Patient [facility] the [facility] with complaints of back and abdominal pain. B: Symptoms began 15 minutes prior to call. A: Patient states she had a small bowel movement, and afterwards, begin having severe 8/10 back pain, radiating to abdomen, with severe nausea. Patient states she has been taking Motrin for relief of pain. In audible distress throughout call. 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 Denies recent injury, fever, dysuria, urinary retention, incontinence, weakness, numbness, or hematuria. R: Patient instructed to proceed to evaluation of severe, sudden onset pain. Patient verbalizes understanding, and states she will proceed to [place] [facility], and that her SO will drive her. Reason for Disposition Patient sounds very sick or weak to the triager Protocols used: Back [id number] documented in this encounter [facility] 07-30-2024 History of Present illness Narrative TRANSITION CARE MANAGEMENT (TCM) HEART FAILURE PHARMACY CONTACT Provider Action/FYI: Unable to reach patient after unsuccessful outreach attempt. Left voicemail for patient including call back number to TCM pharmacist. TCM medication reconciliation incomplete at this time Patient Workup: HF medication classes present on medication list: MARIA T/ARB/ARNI NO Beta krishan YES - metoprolol succinate ER Aldosterone antagonist NO SGLT2i NO Hydralazine/Isosorbide NO Ivabradine NO Loop diuretics NO Digoxin NO New HF medication class(es) added this admission: Yes, metoprolol (Patient to be counseled on new medications if full medication review completed) Last documented LVEF: LV Ejection Fraction (%) Date Value 07/25/2024 50 Last documented weight: Last Wt 07/27/24 54.6 kg (120 lb 5.9 oz) Patient was sent a message via [employer] including the link to the [facility] Heart Failure education video: No sent 07/27/24 Patient unable to be reached after unsuccessful outreach attempt(s). No further attempts to contact patient will be made. SUMMARY: -Pt discharged from [facility] on 07/27/24. -Medication review not done History of Present Illness: The following content has been copied and pasted from patient's discharge summary. If discharge summary unavailable, After Visit Summary or last pertinent inpatient notes are copied and pasted. Reason for Hospitalization: Patient transferred to [facility] from [place] for concerns for ADHF and hx of HCM. Brief Hospital Course/Narrative: Patient admitted to cardiology imaging service for evaluation of possible IE and ADHF. Blood cultures drawn 07/24. Patient started on 80 IV lasix. ID consulted. MICKI showed a thin, filamentous echodensity on the RV lead in the right atrium, measuring ~1.4 cm which appears new from MICKI on 2016. Dr. Fonseca and EP agree it is likely fibrous material leftover from the previous device extraction in 2017. Start toprol XL [address] Fonseca. Patient discharged in stable condition with instructions to follow up with her local PCP and gate shear operator in [place]. Medication Reconciliation: Legend: Stopped, New, Changed, Added to list Medication List Medication Directions Comments Action/Plan albuterol HFA (VENTOLIN HFA) 90 mcg/actuation inhaler Inhale 2 Puffs as instructed every 4 hours as needed for wheezing/shortness of breath. ALPRAZolam (XANAX) 0.5 mg tablet Take 0.5 mg by mouth twice daily. dicyclomine (BENTYL) 10 mg capsule Take 1 capsule by mouth three times a day before meals. Patient not taking: Reported on 07/27/2024 metoprolol succinate ER (TOPROL XL) 25 mg 24 hr tablet Take 1 tablet by mouth once daily. E-rx to Tamra Per discharge summary: Start toprol XL [address] Fonseca Per AVS: You are started on Toprol-XL 25 mg daily for your hypertrophic cardiomyopathy [employer] on new HF med - N/A pantoprazole DR (PROTONIX) 40 mg tablet Take 1 tablet by mouth two times a day before meals at 6 am and 4 pm. psyllium (METAMUCIL) 3.4 gram packet Take 1 packet by mouth two times a day. sucralfate (CARAFATE) 1 gram tablet Take 1 tablet by mouth two times a day before meals. vortioxetine (TRINTELLIX) 10 mg tablet Take 10 mg by mouth once daily. zolpidem (AMBIEN) 10 mg Tab Take 10 mg by mouth daily at bedtime. [facility] [address] [place], [place] [id number] [facility] [address] [facility] - [phone] [place] [address] [facility] [address] [id number] Estimated Creatinine Clearance: 70.3 mL/min (based on SCr of 0.88 mg/dL). eGFR (no units) Date Value 03/20/2019 >60 Estimated Glomerular Filtration Rate (mL/min/1.73m ) Date Value 07/27/2024 83 eGFR- (no units) Date Value 04/26/2021 >60 Additional follow up: Next 5 Appointments None Interventions Made: None Pharmacist Recommendations Made None Care Coordination: None at this time Time spent on patient: 15-30 minutes Quynh Chang RPh July 30, 2024 7:24 AM documented in this encounter [facility] 07-30-2024 Note HNO ID: [id number] Author: QUYNH CHANG RPh Service: ? Author Type: Pharmacist Type: Progress Notes Filed: 07/30/2024 16:25 Note Text: TRANSITION CARE MANAGEMENT (TCM) HEART FAILURE PHARMACY CONTACT Provider Action/FYI: Unable to reach patient after unsuccessful outreach attempt. Left voicemail for patient including call back number to TCM pharmacist. TCM medication reconciliation incomplete at this time Patient Workup: HF medication classes present on medication list: MARIA T/ARB/ARNI NO Beta krishan YES - metoprolol succinate ER Aldosterone antagonist NO SGLT2i NO Hydralazine/Isosorbide NO Ivabradine NO Loop diuretics NO Digoxin NO New HF medication class(es) added this admission: Yes, metoprolol (Patient to be counseled on new medications if full medication review completed) Last documented LVEF: LV Ejection Fraction (%) Date Value 07/25/2024 50 Last documented weight: Last Wt 07/27/24 54.6 kg (120 lb 5.9 oz) Patient was sent a message via [employer] including the link to the [facility] Heart Failure education video: No sent 07/27/24 Patient unable to be reached after unsuccessful outreach attempt(s). No further attempts to contact patient will be made. SUMMARY: -Pt discharged from [facility] on 07/27/24. -Medication review not done History of Present Illness: The following content has been copied and pasted from patient's discharge summary. If discharge summary unavailable, After Visit Summary or last pertinent inpatient notes are copied and pasted. Reason for Hospitalization: Patient transferred to [facility] from [place] for concerns for ADHF and hx of HCM. Brief Hospital Course/Narrative: Patient admitted to cardiology imaging service for evaluation of possible IE and ADHF. Blood cultures drawn 07/24. Patient started on 80 IV lasix. ID consulted. MICKI showed a thin, filamentous echodensity on the RV lead in the right atrium, measuring ~1.4 cm which appears new from MICKI on 2016. Dr. Fonseca and EP agree it is likely fibrous material leftover from the previous device extraction in 2016. Start toprol XL [address] Fonseca. Patient discharged in stable condition with instructions to follow up with her local PCP and gate shear operator in [place]. Medication Reconciliation: Legend: Stopped, New, Changed, Added to list Medication List Medication Directions Comments Action/Plan albuterol HFA (VENTOLIN HFA) 90 mcg/actuation inhaler Inhale 2 Puffs as instructed every 4 hours as needed for wheezing/shortness of breath. ALPRAZolam (XANAX) 0.5 mg tablet Take 0.5 mg by mouth twice daily. dicyclomine (BENTYL) 10 mg capsule Take 1 capsule by mouth three times a day before meals. Patient not taking: Reported on 07/27/2024 metoprolol succinate ER (TOPROL XL) 25 mg 24 hr tablet Take 1 tablet by mouth once daily. E-rx to Tamra Per discharge summary: Start toprol XL [address] Fonseca Per AVS: You are started on Toprol-XL 25 mg daily for your hypertrophic cardiomyopathy [employer] on new HF med - N/A pantoprazole DR (PROTONIX) 40 mg tablet Take 1 tablet by mouth two times a day before meals at 6 am and 4 pm. psyllium (METAMUCIL) 3.4 gram packet Take 1 packet by mouth two times a day. sucralfate (CARAFATE) 1 gram tablet Take 1 tablet by mouth two times a day before meals. vortioxetine (TRINTELLIX) 10 mg tablet Take 10 mg by mouth once daily. zolpidem (AMBIEN) 10 mg Tab Take 10 mg by mouth daily at bedtime. Preferred pharmacy: [id number] [place] [address] [address] [facility] - [phone] [address] [facility] [address] [facility] [address] [facility] [address] Estimated Creatinine Clearance: 70.3 mL/min (based on SCr of 0.88 mg/dL). eGFR (no units) Date Value 03/20/2019 >60 Estimated Glomerular Filtration Rate (mL/min/1.73m?) Date Value 07/27/2024 83 eGFR- (no units) Date Value 04/26/2021 >60 Additional follow up: Next 5 Appointments None Interventions Made: None Pharmacist Recommendations Made None Care Coordination: None at this time Time spent on patient: 15-30 minutes Quynh Chang RPh July 30, 2024 7:24 AM [facility] 07-30-2024 Note Patient Outreach ( RXRF) MICHELLE MITCHELL ([id number]) 1980 F Date Time Provider Department 07/30/24 QUYNH CHANG PHRXRF During your visit today, we recorded the following information about you: Quynh Chang RPh 07/30/2024 4:25 PM Signed TRANSITION CARE MANAGEMENT (TCM) HEART FAILURE PHARMACY CONTACT Provider Action/FYI: Unable to reach patient after unsuccessful outreach attempt. Left voicemail for patient including call back number to TCM pharmacist. TCM medication reconciliation incomplete at this time Patient Workup: HF medication classes present on medication list: MARIA T/ARB/ARNI NO Beta krishan YES - metoprolol succinate ER Aldosterone antagonist NO SGLT2i NO Hydralazine/Isosorbide NO Ivabradine NO Loop diuretics NO Digoxin NO New HF medication class(es) added this admission: Yes, metoprolol (Patient to be counseled on new medications if full medication review completed) Last documented LVEF: LV Ejection Fraction (%) Date Value 07/25/2024 50 Last documented weight: Last Wt 07/27/24 54.6 kg (120 lb 5.9 oz) Patient was sent a message via [employer] including the link to the [facility] Heart Failure education video: No sent 07/27/24 Patient unable to be reached after unsuccessful outreach attempt(s). No further attempts to contact patient will be made. SUMMARY: -Pt discharged from [facility] on 07/27/24. -Medication review not done History of Present Illness: The following content has been copied and pasted from patient's discharge summary. If discharge summary unavailable, After Visit Summary or last pertinent inpatient notes are copied and pasted. Reason for Hospitalization: Patient transferred to [facility] from [place] for concerns for ADHF and hx of HCM. Brief Hospital Course/Narrative: Patient admitted to cardiology imaging service for evaluation of possible IE and ADHF. Blood cultures drawn 07/24. Patient started on 80 IV lasix. ID consulted. MICKI showed a thin, filamentous echodensity on the RV lead in the right atrium, measuring ~1.4 cm which appears new from MICKI on 2016. Dr. Fonseca and EP agree it is likely fibrous material leftover from the previous device extraction in 2017. Start toprol XL [address] Fonseca. Patient discharged in stable condition with instructions to follow up with her local PCP and gate shear operator in [place]. Medication Reconciliation: Legend: Stopped, New, Changed, Added to list Medication List Medication Directions Comments Action/Plan albuterol HFA (VENTOLIN HFA) 90 mcg/actuation inhaler Inhale 2 Puffs as instructed every 4 hours as needed for wheezing/shortness of breath. ALPRAZolam (XANAX) 0.5 mg tablet Take 0.5 mg by mouth twice daily. dicyclomine (BENTYL) 10 mg capsule Take 1 capsule by mouth three times a day before meals. Patient not taking: Reported on 07/27/2024 metoprolol succinate ER (TOPROL XL) 25 mg 24 hr tablet Take 1 tablet by mouth once daily. E-rx to Tamra Per discharge summary: Start toprol XL [address] Fonseca Per AVS: You are started on Toprol-XL 25 mg daily for your hypertrophic cardiomyopathy [employer] on new HF med - N/A pantoprazole DR (PROTONIX) 40 mg tablet Take 1 tablet by mouth two times a day before meals at 6 am and 4 pm. psyllium (METAMUCIL) 3.4 gram packet Take 1 packet by mouth two times a day. sucralfate (CARAFATE) 1 gram tablet Take 1 tablet by mouth two times a day before meals. vortioxetine (TRINTELLIX) 10 mg tablet Take 10 mg by mouth once daily. zolpidem (AMBIEN) 10 mg Tab Take 10 mg by mouth daily at bedtime. Preferred pharmacy: [facility] [address] [place], [place] [id number] - [address] [place] [address] - [phone] [place] [address] [facility] [address] [place] [address] Estimated Creatinine Clearance: 70.3 mL/min (based on SCr of 0.88 mg/dL). eGFR (no units) Date Value 03/20/2019 >60 Estimated Glomerular Filtration Rate (mL/min/1.73m?) Date Value 07/27/2024 83 eGFR- (no units) Date Value 04/26/2021 >60 Additional follow up: Next 5 Appointments None Interventions Made: None Pharmacist Recommendations Made None Care Coordination: None at this time Time spent on patient: 15-30 minutes Quynh Chang artur July 30, 2024 7:24 AM Allergies As of Date: 07/30/2024 Noted Allergy Reaction PROZAC (FLUOXETINE HCL) 11/07/2013 14 - Other: See Comments Comments: suicidal ideations AZITHROMYCIN 10/19/2006 5 - Intolerance CUCUMBER 09/02/2010 10 - Anaphylaxis CUCUMBER 05/15/2024 10 - Anaphylaxis Comments: pickles FISH 08/20/2013 10 - Anaphylaxis LEVOFLOXACIN IN D5W 04/05/2013 7 - Swelling 9 - Itching Comments: IV site swollen, ceased after d/c, redness and itching a (more content not included)... [facility] 07-27-2024 Note HNO ID: [id number] Author: IRLANDA MOORE RPh Service: Pharmacy Author Type: Pharmacist Type: Plan of Care Filed: 07/27/2024 10:49 Note Text: HEART FAILURE DISCHARGE MEDICATION REVIEW BY PHARMACY Patient Name: Michelle Mitchell Account #: Data Unavailable Admission Date: 07/24/2024 Date of Contact: July 27, 2024 Time of Contact: 10:38 AM Medication list was reviewed by a Pharmacist for drug interactions or drug related problems:Yes Below is a summary of pharmacist recommendations discussed with LIP: The following medication-related problems were discussed with LIP for further review (select all that apply): Unnecessary drug therapy: remove dicyclomine, was only prescribed for 10 days Recommendations acknowledged/action taken: Yes, recommendations accepted. provider acknowledged and agreed to remove dicyclomine Medication reconciliation completed: Off rounds Other comments: N/A Irlanda Moore RPh July 27, 2024 10:38 AM Pager: [phone] Medication List START taking these medications metoprolol succinate ER 25 mg 24 hr tablet Commonly known as: TOPROL XL Take 1 tablet by mouth once daily. CONTINUE taking these medications AMBIEN 10 mg Generic drug: zolpidem dicyclomine 10 mg capsule Commonly known as: BENTYL Take 1 capsule by mouth three times a day before meals. pantoprazole DR 40 mg tablet Commonly known as: PROTONIX Take 1 tablet by mouth two times a day before meals at 6 am and 4 pm. psyllium 3.4 gram packet Commonly known as: METAMUCIL Take 1 packet by mouth two times a day. sucralfate 1 gram tablet Commonly known as: CARAFATE Take 1 tablet by mouth two times a day before meals. VENTOLIN HFA 90 mcg/actuation inhaler Generic drug: albuterol HFA vortioxetine 10 mg tablet Commonly known as: TRINTELLIX XANAX 0.5 mg tablet Generic drug: ALPRAZolam Where to Get Your Medications These medications were sent to [facility] [address] [place] [address] [address] [facility] - [id number] [place] [address] metoprolol succinate ER 25 mg 24 hr tablet [facility] 07-26-2024 Note HNO ID: [id number] Author: TEJAL RODRÍGUEZ PA-C Service: Cardiovascular Medicine Author Type: Physician Canceling And Cutting Control Clerk Type: Progress Notes Filed: 07/26/2024 15:35 Note Text: [facility] CARDIOVASCULAR MEDICINE PROGRESS NOTE Michelle Mitchell [id number] PRIMARY SERVICE: Imaging, Hvi TIME OF SERVICE: 1040 HOSPITAL DAY: # 2 INTERVAL HISTORY - No acute events overnight. - Patient sitting in bed, states she continues to have abdominal pain - Patient having caffeine withdrawal headaches, she states she is accustomed to drinking 3 NOS energy drinks per day. Will order Excedrin for her migraine - Patient denies SOB - Toprol XL 25 mg daily for HCM per Dr. Fonseca. - Likely discharge tomorrow per Dr. Fonseca. Rhythm: SR Intake/Output Summary (Last 24 hours) at 07/26/2024 1535 Last data filed at 07/26/2024 1149 Gross per 24 hour Intake 575 ml Output 2350 ml Net -1775 ml EKG: Most recent reviewed TELE: most recent recordings reviewed PHYSICAL EXAM: BP 124/67 Pulse 78 Temp 36.8 ?C (98.2 ?F) (Oral) Resp 18 Wt 56.9 kg (125 lb 7.1 oz) LMP 06/12/2006 SpO2 99% BMI 21.53 kg/m? General Appearance: Well developed, Well nourished , and No acute distress HEENT: EOM's intact and Sclera non-icteric Lungs: Clear and Respiratory effort: normal Heart: Regular rate AND rhythm Abdomen: Soft and mildly tender to palpation Skin: Warm and Dry Musculoskeletal: No deformities Extremities: no Edema Neurologic/Psychiatric: Oriented to time, place AND person and Alert MEDICATIONS Current Facility-Administered Medications Medication Dose Route Frequency melatonin 3 mg tab(s) 3 mg ORAL DAILY (8 PM) polyethylene glycol 3350 17 g packet 17 g ORAL DAILY sodium chloride 0.9 % (flush) 2-10 mL (BD POSIFLUSH) 2-10 mL INTRAVENOUS DIRECTED PRN And perflutren lipid microspheres 1.1 mg/mL 1.3 mL injection (DEFINITY) 1.3 mL INTRAVENOUS DIRECTED PRN ALPRAZolam 0.5 mg tab(s) (XANAX) 0.5 mg ORAL BID zolpidem 10 mg tab(s) (AMBIEN) 10 mg ORAL AT BEDTIME pantoprazole DR 40 mg tab(s) (PROTONIX) 40 mg ORAL BID AC (0600/1600) sucralfate 1 g tab(s) (CARAFATE) 1 g ORAL BID AC heparin iv infusion 25,000 units in NaCl 0.45% 250 mL STROKE NOMOGRAM 0-3,000 Units/hr INTRAVENOUS CONTINUOUS senna 8.6 mg tab(s) (SENOKOT) 8.6 mg ORAL BID bisacodyl 10 mg suppository (DULCOLAX) 10 mg RECTAL DAILY PRN metoprolol succinate ER 25 mg tab(s) (TOPROL XL) 25 mg ORAL DAILY DATA Recent Labs 07/26/24 0206 07/25/24 0653 WBC 15.07* 21.49* HB 16.3* 16.0* HCT 50.7* 50.1* PLT 344 386 Recent Labs 07/26/24 0206 07/25/24 0653 NA 136 135* K 4.5 5.2* CO2 24 27 BUN 29* 31* CREAT 1.02* 1.10* GLUC 98 81 MG 2.3 2.5* Presentation/Indication for admission/procedure: Chest pain, SOB, endocarditis workup vs ICD infection LVEF: 50% RVEF: Cards: Cath: PMH/PSH: HCM (s/p ICD in 2006, lead revision 2008, explant/reimplant 10/19/2016), pericarditis, HFmrEF, breastcancer at age 18 (s/p lumpectomy and chemotherapy), ovarian cancer s/p oophorectomy, endometrial cancer s/p ablation, DVT/PE 2016 (not currently on anticoagulation), anxiety/depression, PUD, GERD, recent leg abscess requiring hospitalization from 05/16/24-05/22/24 and was treated with IV abx and discharged home on Bactrim Procedure/OR performed (including complications): Brief Hospital Course/Narrative: Patient admitted to cardiology imaging service for evaluation of possible IE and ADHF. Blood cultures drawn 07/24. Patient started on 80 IV lasix. ID consulted. MICKI showed a thin, filamentous echodensity on the RV lead in the right atrium, measuring ~1.4 cm which appears new from MICKI on 2016. Dr. Fonseca and EP agree it is likely fibrous material leftover from the previous device extraction in 2016. Start toprol XL [address] Fonseca. Issues to communicate: - Start Toprol XL 25 mg daily - Blood cultures drawn 07/24 no growth x 1 day - Mild RADHA 07/25, creatinine returning to normal today. - MICKI showed a thin, filamentous echodensity on the RV lead in the right atrium, measuring ~1.4 cm which appears new from MICKI on 2016. Dr. Fonseca and EP agree it is likely fibrous material leftover from the previous device extraction in 2016. - heparin gtt ASSESSMENT AND PLAN: #ICD (implantable cardioverter-defibrillator) in place #Hypertrophic cardiomyopathy #HFrEF #Chest pain History: ICD originally implanted in 2006, lead revision 2008, explant/reimplant 10/19/2016. history of chronic chest pain first reported after PE in 2016. She states the pain is different compared to her usual. She followed with but was lost to follow-up was last seen in 09/2019. Assessment: Abdomen is distended and tender, trace BLE edema. No murmur. NT pro BNP: 3,054. Device check showed <0.1% v-paced. MICKI 07/25: showed a thin, filamentous echodensity on the RV lead in the right atrium, measuring ~1.4 cm which appears new from MICKI o (more content not included)... [facility] 07-25-2024 Note HNO ID: [id number] Author: SHEILA SPICER RN Service: Care Management Author Type: Registered Nurse Type: Care Mgt Initial Assessment Filed: 07/25/2024 14:56 Note Text: CARE MANAGEMENT: ASSESSMENT AND DISCHARGE PLAN SERVICE DATE: July 25, 2024 SERVICE TIME: 2:50 PM PCP: Dex Sutherland MD Primary Contact: Extended Emergency Contact Information Primary Emergency Contact: Babar Mitchell Address: [address] [place] [address] [birth year][address] Mobile Relation: Spouse Admission Status: Inpatient Insurance Provider: [facility] PPO Discharge Planning requested by: Per Department Practice Potential Transition Plans Home Advance Directives Current Advance Directive: None Aeronautical Inspector Attempted to Assist with AD Completion: Yes Action: Education Provided Current Living Arrangements and Support Lives with: Spouse/significant other Type of Residence: Private Residence (Apartment or Condo) Does the patient have to climb stairs at home?: Yes Support: Children, Spouse/significant other How do you manage to accomplish the following: Independent: Ambulation, Bathe/Shower, Dress, Meals/Meal Prep, Going to the bathroom, Medication Management, Transportation to appointments/community Current Services/Equipment Current Post-Acute Service(s): None Discharge Planning Patient Goal(s): Be able to go home [place] of Choice Explained: [place] of Choice Given: No Reason Not Given: No placements necessary Are you interested in bedside delivery of your medications? Yes Discharge Planning Participant(s): Patient, Spouse/significant other, Children Patient/Family Comments: Patient lives with spouse only; adult daughter recently moved out on her own, but able to assist if needed Caregiver Assessment: Caregiver is ready, willing and able to meet the patient's needs as recommended by the inter-professional team: No Caregiver needed Transport at Discharge: Transportation Arrangements: Car Needs Prior to Discharge: Needs Prior to Discharge: To Be Determined, Procedure Procedure Needed: MICKI Post-Acute Discharge Plan: Patient states that this visit came out of the blue and they are managing it ok, except they have gone negative in their account to get her up to see her today. Inquiring about parking passes or gas cards for to be able to see her prior to getting paid next Tuesday. States she does feel a little anxious due to being just doors down from where my dad and that he had received a transplant and in the ICU a few months later. Is trying to keep a positive outlook by stating that God has brought me here to help me grieve and help me heal because I have not done that yet. Patient did state that she is in the best place she could be in and in the best hands. Patient's will provide transportation on discharge to home. CM will follow for pending needs until discharge. Patient will require further workup to determine if she will need IV antibiotics when she discharges or any other needs. SIGNATURE: Sheila Spicer RN PATIENT NAME: Michelle Mitchell DATE: July 25, 2024 TIME: 2:50 PM [facility] 07-25-2024 Nurse Note ..AMBULATORY PATIENT EDUCATION TOPIC: SURVIVAL SKILLS: MICKI READINESS TO LEARN COGNITIVE ABILITY: Alert and oriented MOTIVATION TO LEARN: Eager Interested FAMILY SUPPORT: None - Unavailable/disinterested INSTRUCTION PROVIDED TO: Patient PATIENT LEARNS BEST BY: Individual Instruction Verbal Instruction FACTORS AFFECTING LEARNING: None PHYSICAL LIMITATIONS AFFECTING LEARNING: None LEARNING RESPONSE DIAGNOSIS: R/O IE METHOD OF INSTRUCTION: Individual instruction Verbal instruction PATIENT / FAMILY RESPONSE: Verbalizes understanding of: POST-OPERATIVE INSTRUCTIONS-Correct actions to take to reduce postoperative complications PRE-PROCEDURE INSTRUCTIONS-Correct action to take to follow pre-procedure instructions FOLLOW-UP PLAN: Complete - No need for follow-up SUPPLEMENTAL MATERIAL: None REFERRAL (RECOMMENDATION): None Electronically Signed By Dominguez Obregon RN In Department: CARDIOLOGY [facility] 07-25-2024 Nurse Note ..AMBULATORY PATIENT EDUCATION TOPIC: SURVIVAL SKILLS: MICKI READINESS TO LEARN COGNITIVE ABILITY: Alert and oriented MOTIVATION TO LEARN: Eager Interested FAMILY SUPPORT: None - Unavailable/disinterested INSTRUCTION PROVIDED TO: Patient PATIENT LEARNS BEST BY: Individual Instruction Verbal Instruction FACTORS AFFECTING LEARNING: None PHYSICAL LIMITATIONS AFFECTING LEARNING: None LEARNING RESPONSE DIAGNOSIS: R/O IE METHOD OF INSTRUCTION: Individual instruction Verbal instruction PATIENT / FAMILY RESPONSE: Verbalizes understanding of: POST-OPERATIVE INSTRUCTIONS-Correct actions to take to reduce postoperative complications PRE-PROCEDURE INSTRUCTIONS-Correct action to take to follow pre-procedure instructions FOLLOW-UP PLAN: Complete - No need for follow-up SUPPLEMENTAL MATERIAL: None REFERRAL (RECOMMENDATION): None Electronically Signed By Dominguez Obregon RN In Department: CARDIOLOGY documented in this encounter [facility] 07-25-2024 Note HNO ID: [id number] Author: MAHNAZ RUFF ? Service: Pharmacy Author Type: Therapist Physical Type: Plan of Care Filed: 07/25/2024 10:00 Note Text: Reason for test claim: HVTI Eliquis Medication: Eliquis 5 mg tablets Qty: 60 tablets Day supply: 30 days Cost on Insurance: $60 Does patient have a deductible? No Requires Prior Authorization? No 30-day voucher available, can only be used once per lifetime. $10 copay card available for commercially insured patients. Xarelto Medication: Xarelto 20 mg tablets Qty: 30 tablets Day supply: 30 days Cost on Insurance: $60 Does patient have a deductible? No Requires Prior Authorization? No 30-day voucher available, can only be used once per lifetime. $10 copay card available for commercially insured patients. Total number of mo checks: 2 Any questions, please reach out to your medication distance education coordinator. Thank you (Prices may vary at different pharmacy locations, this is the cost at [facility]) [facility] 07-25-2024 Note HNO ID: [id number] Author: MAHNAZ RUFF, ? Service: Pharmacy Author Type: Therapist Physical Type: Plan of Care Filed: 07/25/2024 09:57 Note Text: Insurance investigation completed Patient has active prescription insurance: Yes - Patient's insurance is in-network with [facility] Insurance loaded into [place]: Yes Test claim was completed to verify insurance is active: Successful Any questions, please reach out to your medication distance education coordinator. [facility] 07-24-2024 Discharge summary [facility] 07-24-2024 Note [facility] 07-23-2024 Progress note Note Date/Time July 23, 2024 12:31pm [facility] Medical Records Department [address] [place] [address] Progress Note - Hospitalist 07/23/24 0749 MR#: [id number] Acct: [id number] Name: MICHELLE MITCHELL Rep #:[id number] 2 : 1980 43 From: Willian Ovalles DO PCP: Dr. Dex Sutherland MD Status:A DM IN Location: [place] [address]- 1 Reason for Visit Reason for Visit: Diagnoses Elevated white blood cell count, unspecified (07/21/24) Essential (primary) hypertension (07/21/24) Pulmonary hypertension, unspecified (07/21/24) Acute and subacute infective endocarditis (07/21/24) Other hypertrophic cardiomyopathy (07/21/24) Unspecified systolic (congestive) heart failure (07/21/24) Acute systolic (congestive) heart failure (07/21/24) Unspecified diastolic (congestive) heart failure (07/21/24) Heart failure, unspecified (07/21/24) Gastritis, unspecified, with bleeding (07/21/24) Unspecified abdominal pain (07/21/24) Nausea with vomiting, unspecified (07/21/24) Other specified abnormal findings of blood chemistry (07/21/24) Personal history of other diseases of the circulatory system (07/21/24) Presence of cardiac pacemaker (07/21/24) Presence of automatic (implantable) cardiac defibrillator (07/21/24) Subjective Subjective Abdominal pain post enoxaparin injection. Objective Data Objective Data Vital Signs: Vital Signs Temp Pulse Resp BP Pulse Ox O2 Del Method 36.6 C 63 18 145/108 H 99 Room Air 07/23/24 07:45 07/23/24 07:45 07/23/24 07:45 07/23/24 07:45 07/23/24 07:45 07/23/24 07:45 Oxygen Delivery Method Room Air Weight: 59.8 kg Body Mass Index (BMI) 22.6 Intake & Output: Intake and Output for Last 24 Hours 07/21/24 07/22/24 07/23/24 23:59 23:59 23:59 Intake Total 900 / 900 1999 Balance 900 / 900 1999 Lab / Micro Data 07/23/24 04:56 07/23/24 04:56 Labs: Laboratory Results - last 24 hr 07/23/24 04:56: WBC 20.5 H, RBC 4.69, Hgb 15.2 H, Hct 45.5, MCV 97.0, MCH 32.4 H, MCHC 33.4, RDW Std Deviation 49.4 H, RDW Coeff of Damon 13.9, Plt Count 372, MPV10.6, Immature Gran % (Auto) 1.500 H, Neut % (Auto) 93.3 H, Lymph % (Auto) 2.5 L, [place] % (Auto) 2.5, Eos % (Auto) 0.0, Baso % (Auto) 0.2, Absolute Neuts (auto) 19.1 H, Absolute Lymphs (auto) 0.52 L, Nucleated RBC % 0, Sodium 136, Potassium 4.6, Chloride 100, Carbon Dioxide 23.1, Anion Gap 13, BUN 30 H, Creatinine 0.93,Estim Creat Clear Calc 66.66, Est GFR (MDRD) Non-Af 78, BUN/Creatinine Ratio 32.9 H, Glucose 99, Calcium 9.4 Physical Exam Const alert and no apparent distress Constitutional Narrative: up in bed. afebrile. no respiratory distress. no conversational dyspnea. HEENT head/scalp atraumatic and moist oral mucous membranes Resp normal respiratory effort and no retractions Neuro Sensorium / Orientation: awake and alert Assessment & Plan Assessment/Plan (1) HFrEF (heart failure with reduced ejection fraction): PLAN: acute Echo from 09/13/23: EF 50%, PASP 58mmHg. Now 35% with stage II DD. Severely enlarged LA. RVSP 77mmHg. CW severe pulmonary hypertension. s/p single-lead AICD CTA chest showed bilateral pleural effusions On IV furosemide 20 IV BID. Continue carvedilol 3.125 BID, empagliflozin 10/d, lisinopril 5 BID, spironolactone 12.5/d FRANCO Bishop. Recommending transfer to tertiary facility. (2) Elevated troponin: PLAN: minimal elevation. I doubt primary cardiac ischemia. Either baseline levels v demand ischemia from CHF in pt with hypertrophic cardiomyopathy. (3) Vegetation of heart valve: PLAN: Not valvular, but on ICD wire (atrial side). Previously noted in 2023. FRANCO Clay, who recommend blood cultures to rule out infective endocarditis. Follow up blood cultures, so far negative, however, if positive, will need MICKI. FRANCO Clay and said pt would require GI clearance prior to undergoing a MICKI. FRANCO Myles, who will be consulted. Ok for anticoagulation. (4) Pulmonary hypertension: PLAN: suspect group 2. PE ruled on CTA unlikely group 1 component, may benefit from referral to pulmonary hypertension specialist. Pt states that she plans on following up with Dr. Aguilar at [facility], CTS at [facility] that specialized in cardiac transplantation. She may be refferred by Dr. Aguilar since she will be following up there. PLAN: Plan Gastritis: noted on EGD from 07/12. Biopsy performed (still pending result). Continue pantoprazole. Terminal ileum congestion: from colonoscopy on 07/12. on prednisone. Biopsy performed (still pending result). VTE prophylaxis: LMWH. Greater than 60 minutes of which greater than 50% of the time was discussing with the patient and Drs. Bishop and Friend. Present during phone call with Dr. Bishop and her sister. Patient has been accepted to [facility], awaiting on bed availablily. Charges/Coding Visit Charges Inpatient E&M: 31469 Subs Hosp L3 07/23/24 1231 <Electronically signed by Willian Ovalles DO> Cosigner Signature (if applicable): CC: ~ Signed [facility] Work Phone: 1(932) 407-965905-12-2025 Progress note Author Mercy Bishop [facility] Note Date/Time July 23, 2024 11:05 am [facility] Medical Records Department [address] [place] [address] Progress Note - Cardiology 07/23/24825 MR#: [id number] Acct: [id number] Name: MICHELLE MITCHELL Rep #:[id number] 2 : 1980 43 From: Mercy Bishop MD PCP: Dr. Dex Sutherland MD Status:A DM IN Location: [facility] [id number] Subjective Subjective Patient continues to complain of PND when lying flat. She also has severe abdominal discomfort radiating up into the her lower thorax. She has a history of a EGD done 07/12/2024 showing hemorrhagic gastritis. Biopsies from the EGD arepending. The patient had a transthoracic echo that was suggestive of a mass on the ICD RVlead. This is a single lead device. However, there was an indication of a similar image on the previous transthoracic echo from September 2023. Objective Data Vital Signs: Vital Signs Temp Pulse Resp BP Pulse Ox O2 Del Method 97.8 F 63 18 145/108 H 99 Room Air 07/23/24 07:45 07/23/24 07:45 07/23/24 07:45 07/23/24 07:45 07/23/24 07:45 07/23/24 07:45 Oxygen Delivery Method Room Air Weight: 131 lb 13.383 oz Body Mass Index (BMI) 22.6 Intake & Output: Intake and Output for Last 24 Hours 07/21/24 07/22/24 07/23/24 23:59 23:59 23:59 Intake Total 900 / 900 1999 Balance 900 / 900 1999 Lab / Micro Data Attestation: I reviewed the patient's lab results. 07/23/24 04:56 07/23/24 04:56 Labs: Laboratory Results - last 24 hr 07/23/24 04:56: WBC 20.5 H, RBC 4.69, Hgb 15.2 H, Hct 45.5, MCV 97.0, MCH 32.4 H, MCHC 33.4, RDW Std Deviation 49.4 H, RDW Coeff of Damon 13.9, Plt Count 372, MPV10.6, Immature Gran % (Auto) 1.500 H, Neut % (Auto) 93.3 H, Lymph % (Auto) 2.5 L, [place] % (Auto) 2.5, Eos % (Auto) 0.0, Baso % (Auto) 0.2, Absolute Neuts (auto) 19.1 H, Absolute Lymphs (auto) 0.52 L, Nucleated RBC % 0, Sodium 136, Potassium 4.6, Chloride 100, Carbon Dioxide 23.1, Anion Gap 13, BUN 30 H, Creatinine 0.93,Estim Creat Clear Calc 66.66, Est GFR (MDRD) Non-Af 78, BUN/Creatinine Ratio 32.9 H, Glucose 99, Calcium 9.4 Rhythm Strip Rhythm Strip: Sinus Rhythm Rate: 52 Cardiology Labs/Tests 07/23/24 04:56: WBC 20.5 H, RBC 4.69, Hgb 15.2 H, Hct 45.5, MCV 97.0, MCH 32.4 H, MCHC 33.4, Plt Count 372, MPV 10.6, Immature Gran % (Auto) 1.500 H, Neut % (Auto) 93.3 H, Lymph % (Auto) 2.5 L, [place] % (Auto) 2.5, Eos % (Auto) 0.0, Baso %(Auto) 0.2, Absolute Neuts (auto) 19.1 H, Nucleated RBC % 0, Sodium 136, Potassium 4.6, Chloride 100, Carbon Dioxide 23.1, Anion Gap 13, BUN 30 H, Creatinine 0.93, Est GFR (MDRD) Non-Af 78, BUN/Creatinine Ratio 32.9 H, Glucose 99, Calcium 9.4 Rhythm: EKG: ECHO: Stress Test: Cardiac Cath: PCI: CT Surgery: Holter monitor: EPS: PPM: CXR: Chest CT Scan: Physical Exam Narrative Patient in moderate distress holding her upper abdomen. Ultrasound of the lowerextremities ongoing. Const alert and oriented x3 HEENT normocephalic Eyes EOMs intact bilaterally Neck no JVD Neck Narrative: No obvious JVD at 45 degrees. Patient complains of a fullness in her neck and reports that her facial swelling has resolved Chest Chest: right pectoral incision Resp normal respiratory effort and clear to auscultation bilaterally Cardio Rate: regular rate Rhythm: regular rhythm Heart Sounds: S1 normal and S2 normal; Negative for click, gallop or murmur GI GI Narrative: Tense patient reports she sleeps about 2 hours after pain meds and then wakes upfrom the pain. Extremity no pedal edema Neuro Neuro Narrative: Alert and oriented x 3 Psych mental status grossly normal Assessment & Plan Assessment/Plan (1) HFrEF (heart failure with reduced ejection fraction): PLAN: Patient has a history of familial hypertrophic cardiomyopathy. She reports that she has not had an ICD firing. Her ICD has been in place for several years. At one point in time she did have inappropriate shocks related to lead failure which was replaced. The patient does not tolerate she has actually been in tolerate of almost all antihypertensives. Currently she is on carvedilol 3.125 mg twice daily Lasix 40 mg twice daily potassium replacement and spironolactone 12.5 mg daily. Her NT?proBNP was 6400 on admission. The patient also has a drop in her LV ejection fraction from 50% September 2023 down to 35% on the transthoracic echo this admission. Will continue to monitor her blood pressure heart rate and response to the medications. I talked to the patient's sister on speaker phone with the patient in the room. The patient's symptoms are almost identical to how her sister deteriorated with her familial cardiomyopathy that led to her transplant. Neither 1 ever had lower extremity edema they both had elevated BNP's with pulmonary edema and PND. They also both had abdominal discomfort with their heart failure. The patient reminds me that this is the same way that her father presented as well. Given this deterioration of her ejection fraction from 50% in September 2023 down to 35% and progression of her pulmonary hypertension from a PA pressure of 58 up to77 I feel that we should be aggressive about evaluating the patient for destination therapy for her heart failure. She has been intolerant of multiple medications in the past. However she is currently tolerating the carvedilol andLasix as well as frontal lactone during this admission. I discussed her situation with Dr. Zambrano at the [facility] and he has agreed to take the patient in transfer. The patient was agreeable with the transfer and I discussed this with her and her sister in detail. The complicating situation is his recent diagnosis of hemorrhagic gastritis, thequestionable vegetation on her single-lead ICD device in the right atrium, and her increasing white blood cell count. The patient had blood cultures drawn yesterday they have failed to grow anythingas of this morning. The patient does have a history of having her device replaced due to a fractured wire in the past. And is currently located on her right infraclavicular area. (2) Presence of implantable cardioverter-defibrillator (ICD): PLAN: The patient has an ICD in place in the right infraclavicular area. This is monitored with the [facility]. (3) Hemorrhagic gastritis: QUALIFIERS: Chronicity: unspecified Gastritis type: unspecified gastritis Qualified Code(s): K29.71 - Gastritis, unspecified, with bleeding PLAN: Patient's EGD done 07/12/2024 showed significant hemorrhagic gastritis. Sheis on Carafate but continues to have significant abdominal pains. Hemoglobin isstable white blood cell count is elevated to 20,000 today. (4) Hypertension: QUALIFIERS: Hypertension type: primary hypertension Qualified Code(s): I10 - Essential (primary) hypertension PLAN: Patient's blood pressure elevated despite the Coreg and spironolactone. However she is in significant pain from her abdominal discomfort. (5) Pulmonary hypertension: PLAN: On her September 2023 echocardiogram pulmonary artery pressure was estimated at58. On the exam of this admission the transthoracic echo showed a pulmonary artery pressure 77 mmHg. PLAN: Plan 1. Will continue with current medical therapy for her LV dysfunction. 2. Await final diagnosis and further treatment recommendations from GI. 3. Will discuss need for transesophageal echo with Dr. Santamaria. Will need to make certain GI agrees with instrumentation of the gastric fundus to perform a MICKI. 4. Await results of the blood cultures. 5. Will arrange for transfer to the [facility] with her heart failure service. Charges/Coding Visit Charges Inpatient E&M: 41435 Subs Hosp L3 07/23/24 1105 <Electronically signed by Mercy Bishop MD> Cosigner Signature (if applicable): CC: ~ Signed [facility] Work Phone: 1(894) 581-486405-12-2025 Progress note [facility] Medical Records Department [address] [place] [address] Progress Note - Hospitalist 07/23/24 0749 MR#: [id number] Acct: [id number] Name: MICHELLE MITCHELL Rep #:[id number] 2 : 1980 43 From: Willian Ovalles DO PCP: Dr. Dex Sutherland MD Status:A DM IN Location: [place] [address] Reason for Visit Reason for Visit: Diagnoses Elevated white blood cell count, unspecified (07/21/24) Essential (primary) hypertension (07/21/24) Pulmonary hypertension, unspecified (07/21/24) Acute and subacute infective endocarditis (07/21/24) Other hypertrophic cardiomyopathy (07/21/24) Unspecified systolic (congestive) heart failure (07/21/24) Acute systolic (congestive) heart failure (07/21/24) Unspecified diastolic (congestive) heart failure (07/21/24) Heart failure, unspecified (07/21/24) Gastritis, unspecified, with bleeding (07/21/24) Unspecified abdominal pain (07/21/24) Nausea with vomiting, unspecified (07/21/24) Other specified abnormal findings of blood chemistry (07/21/24) Personal history of other diseases of the circulatory system (07/21/24) Presence of cardiac pacemaker (07/21/24) Presence of automatic (implantable) cardiac defibrillator (07/21/24) Subjective Subjective Abdominal pain post enoxaparin injection. Objective Data Objective Data Vital Signs: Vital Signs Temp Pulse Resp BP Pulse Ox O2 Del Method 36.6 C 63 18 145/108 H 99 Room Air 07/23/24 07:45 07/23/24 07:45 07/23/24 07:45 07/23/24 07:45 07/23/24 07:45 07/23/24 07:45 Oxygen Delivery Method Room Air Weight: 59.8 kg Body Mass Index (BMI) 22.6 Intake & Output: Intake and Output for Last 24 Hours 07/21/24 07/22/24 07/23/24 23:59 23:59 23:59 Intake Total 900 / 900 1999 Balance 900 / 900 1999 Lab / Micro Data 07/23/24 04:56 07/23/24 04:56 Labs: Laboratory Results - last 24 hr 07/23/24 04:56: WBC 20.5 H, RBC 4.69, Hgb 15.2 H, Hct 45.5, MCV 97.0, MCH 32.4 H, MCHC 33.4, RDW Std Deviation 49.4 H, RDW Coeff of Damon 13.9, Plt Count 372, MPV10.6, Immature Gran % (Auto) 1.500 H, Neut % (Auto) 93.3 H, Lymph % (Auto) 2.5 L, [place] % (Auto) 2.5, Eos % (Auto) 0.0, Baso % (Auto) 0.2, Absolute Neuts (auto) 19.1 H, Absolute Lymphs (auto) 0.52 L, Nucleated RBC % 0, Sodium 136, Potassium4.6, Chloride 100, Carbon Dioxide 23.1, Anion Gap 13, BUN 30 H, Creatinine 0.93,Estim Creat Clear Calc 66.66, Est GFR (MDRD) Non-Af 78, BUN/Creatinine Ratio 32.9 H, Glucose 99, Calcium 9.4 Physical Exam Const alert and no apparent distress Constitutional Narrative: up in bed. afebrile. no respiratory distress. no conversational dyspnea. HEENT head/scalp atraumatic and moist oral mucous membranes Resp normal respiratory effort and no retractions Neuro Sensorium / Orientation: awake and alert Assessment & Plan Assessment/Plan (1) HFrEF (heart failure with reduced ejection fraction): PLAN: acute Echo from 09/13/23: EF 50%, PASP 58mmHg. Now 35% with stage II DD. Severely enlarged LA. RVSP 77mmHg.CW severe pulmonary hypertension. s/p single-lead AICD CTA chest showed bilateral pleural effusions On IV furosemide 20 IV BID. Continue carvedilol 3.125 BID, empagliflozin 10/d, lisinopril 5 BID, spironolactone 12.5/d DW Dr. Bishop. Recommending transfer to tertiary facility. (2) Elevated troponin: PLAN: minimal elevation. I doubt primary cardiac ischemia. Either baseline levels v demand ischemiafrom CHF in pt with hypertrophic cardiomyopathy. (3) Vegetation of heart valve: PLAN: Not valvular, but on ICD wire (atrial side). Previously noted in 2023. FRANCO Clay, who recommend blood cultures to rule out infective endocarditis. Follow up blood cultures, so far negative, however, if positive, will need MICKI. FRANCO Clay and said pt would require GI clearance prior to undergoing a MICKI. FRANCO Myles, who will be consulted. Ok for anticoagulation. (4) Pulmonary hypertension: PLAN: suspect group 2. PE ruled on CTA unlikely group 1 component, may benefit from referral to pulmonary hypertension specialist. Pt states that she plans on following up with Dr. Aguilar at [facility], CTS at [facility] that specialized in cardiac transplantation. She may be refferred by Dr. Aguilar since she will be following up there. PLAN: Plan Gastritis: noted on EGD from 07/12. Biopsy performed (still pending result). Continue pantoprazole. Terminal ileum congestion: from colonoscopy on 07/12. on prednisone. Biopsy performed (still pending result). VTE prophylaxis: LMWH. Greater than 60 minutes of which greater than 50% of the time was discussing with the patient and Drs. Bishop and Shameka. Present during phone call with Dr. Bishop and her sister. Patient has been accepted to [facility], awaiting on bed availablily. Charges/Coding Visit Charges Inpatient E&M: 97133 [facility] Hosp L3 07/23/24 1231 Cosigner Signature (if applicable): CC: ~ Signed [facility]05-12-2025 Progress note [facility] Medical Records Department [address] [place] [address] Progress Note - Cardiology 07/23/24 0826 MR#: [id number] Acct: [id number] Name: MICHELLE MITCHELL Rep #:[id number] : 1980 43 From: Mercy Bishop MD PCP: Dr. Dex Sutherland MD Status:A DM IN Location: [facility] [id number] Subjective Subjective Patient continues to complain of PND when lying flat. She also has severe abdominal discomfort radiating up into the her lower thorax. She has a history of a EGD done 07/12/2024 showing hemorrhagic gastritis. Biopsies from the EGD arepending. The patient had a transthoracic echo that was suggestive of a mass on the ICD RVlead. This is a single lead device. However, there was an indication of a similar image on the previous transthoracic echo from September 2023. Objective Data Vital Signs: Vital Signs Temp Pulse Resp BP Pulse Ox O2 Del Method 97.8 F 63 18 145/108 H 99 Room Air 07/23/24 07:45 07/23/24 07:45 07/23/24 07:45 07/23/24 07:45 07/23/24 07:45 07/23/24 07:45 Oxygen Delivery Method Room Air Weight: 131 lb 13.383 oz Body Mass Index (BMI) 22.6 Intake & Output: Intake and Output for Last 24 Hours 07/21/24 07/22/24 07/23/24 23:59 23:59 23:59 Intake Total 900 / 900 1999 Balance 900 / 900 1999 Lab / Micro Data Attestation: I reviewed the patient's lab results. 07/23/24 04:56 07/23/24 04:56 Labs: Laboratory Results - last 24 hr 07/23/24 04:56: WBC 20.5 H, RBC 4.69, Hgb 15.2 H, Hct 45.5, MCV 97.0, MCH 32.4 H, MCHC 33.4, RDW Std Deviation 49.4 H, RDW Coeff of Damon 13.9, Plt Count 372, MPV10.6, Immature Gran % (Auto) 1.500 H, Neut % (Auto) 93.3 H, Lymph % (Auto) 2.5 L, [place] % (Auto) 2.5, Eos % (Auto) 0.0, Baso % (Auto) 0.2, Absolute Neuts (auto) 19.1 H, Absolute Lymphs (auto) 0.52 L, Nucleated RBC % 0, Sodium 136, Potassium4.6, Chloride 100, Carbon Dioxide 23.1, Anion Gap 13, BUN 30 H, Creatinine 0.93,Estim Creat Clear Calc 66.66, Est GFR (MDRD) Non-Af 78, BUN/Creatinine Ratio 32.9 H, Glucose 99, Calcium 9.4 Rhythm Strip Rhythm Strip: Sinus Rhythm Rate: 52 Cardiology Labs/Tests 07/23/24 04:56: WBC 20.5 H, RBC 4.69, Hgb 15.2 H, Hct 45.5, MCV 97.0, MCH 32.4 H, MCHC 33.4, Plt Count 372, MPV 10.6, Immature Gran % (Auto) 1.500 H, Neut % (Auto) 93.3 H, Lymph % (Auto) 2.5 L, [place] % (Auto) 2.5, Eos % (Auto) 0.0, Baso %(Auto) 0.2, Absolute Neuts (auto) 19.1 H, Nucleated RBC % 0, Sodium 136, Potassium 4.6, Chloride 100, Carbon Dioxide 23.1, Anion Gap 13, BUN 30 H, Creatinine 0.93, Est GFR (MDRD) Non-Af 78, BUN/Creatinine Ratio 32.9 H, Glucose 99, Calcium 9.4 Rhythm: EKG: ECHO: Stress Test: Cardiac Cath: PCI: CT Surgery: Holter monitor: EPS: PPM: CXR: Chest CT Scan: Physical Exam Narrative Patient in moderate distress holding her upper abdomen. Ultrasound of the lowerextremities ongoing. Const alert and oriented x3 HEENT normocephalic Eyes EOMs intact bilaterally Neck no JVD Neck Narrative: No obvious JVD at 45 degrees. Patient complains of a fullness in her neck and reports that her facial swelling has resolved Chest Chest: right pectoral incision Resp normal respiratory effort and clear to auscultation bilaterally Cardio Rate: regular rate Rhythm: regular rhythm Heart Sounds: S1 normal and S2 normal; Negative for click, gallop or murmur GI GI Narrative: Tense patient reports she sleeps about 2 hours after pain meds and then wakes upfrom the pain. Extremity no pedal edema Neuro Neuro Narrative: Alert and oriented x 3 Psych mental status grossly normal Assessment & Plan Assessment/Plan (1) HFrEF (heart failure with reduced ejection fraction): PLAN: Patient has a history of familial hypertrophic cardiomyopathy. She reports that she has not had an ICD firing. Her ICD has been in place for several years. At one point in time she did have inappropriate shocks related to lead failure which was replaced. The patient does not tolerate she has actually been in tolerate of almost all antihypertensives. Currently she is on carvedilol 3.125 mg twice daily Lasix 40 mg twice daily potassium replacement and spironolactone 12.5 mg daily. Her NT?proBNP was 6400 on admission. The patient also has a drop in her LV ejection fraction from 50% September 2023 down to 35% on the transthoracic echo this admission. Will continue to monitor her blood pressure heart rate and response to the medications. I talked to the patient's sister on speaker phone with the patient in the room. The patient's symptoms are almost identical to how her sister deteriorated with her familial cardiomyopathy that led toher transplant. Neither 1 ever had lower extremity edema they both had elevated BNP's with pulmonary edema and PND. They also both had abdominal discomfort with their heart failure. The patient reminds me that this is the same way that her father presented as well. Given this deterioration of her ejection fraction from 50% in September 2023 down to 35% and progressionof her pulmonary hypertension from a PA pressure of 58 up to77 I feel that we should be aggressive about evaluating the patient for destination therapy for her heart failure. She has been intolerant of multiple medications in the past. However she is currently tolerating the carvedilol andLasix as well as frontal lactone during this admission. I discussed her situation with Dr. Zambrano at the [facility] and he has agreed to take the patient in transfer. The patient was agreeable with the transfer and I discussed this with her and her sister in detail. The complicating situation is his recent diagnosis of hemorrhagic gastritis, thequestionable vegetation on her single-lead ICD device in the right atrium, and her increasing white blood cell count. The patient had blood cultures drawn yesterday they have failed to grow anythingas of this morning.The patient does have a history of having her device replaced due to a fractured wire in the past. And is currently located on her right infraclavicular area. (2) Presence of implantable cardioverter-defibrillator (ICD): PLAN: The patient has an ICD in place in the right infraclavicular area. [facility]. (3) Hemorrhagic gastritis: QUALIFIERS: Chronicity: unspecified Gastritis type: unspecified gastritis Qualified Code(s): K29.71- Gastritis, unspecified, with bleeding PLAN: Patient's EGD done 07/12/2024 showed significant hemorrhagic gastritis. Sheis on Carafate but continues to have significant abdominal pains. Hemoglobin isstable white blood cell count is elevatedto 20,000 today. (4) Hypertension: QUALIFIERS: Hypertension type: primary hypertension Qualified Code(s): I10 - Essential (primary) hypertension PLAN: Patient's blood pressure elevated despite the Coreg and spironolactone. However she is in significant pain from her abdominal discomfort. (5) Pulmonary hypertension: PLAN: On her September 2023 echocardiogram pulmonary artery pressure was estimated at58. On the exam of this admission the transthoracic echo showed a pulmonary artery pressure 77 mmHg. PLAN: Plan 1. Will continue with current medical therapy for her LV dysfunction. 2. Await final diagnosis and further treatment recommendations from GI. 3. Will discuss need for transesophageal echo with Dr. Santamaria. Will need to make certain GI agrees with instrumentation of the gastric fundus to perform a MICKI. 4. Await results of the blood cultures. 5. Will arrange for transfer to the [facility] with her heart failure service. Charges/Coding Visit Charges Inpatient E&M: 50574 Subs Hosp L3 07/23/24 1105 Cosigner Signature (if applicable): CC: ~ Signed [facility]05-11-2025 Progress note Author Willian Ovalles [facility] Note Date/Time July 22, 2024 1:45p m [facility] Medical Records Department [address] [place] [address] Progress Note - Hospitalist 07/22/24 0852 MR#: [id number] Acct: [id number] Name: MICHELLE MITCHELL Rep #:[id number] : 1980 43 From: Willian Ovalles DO PCP: Dr. Dex Sutherland MD Status:A DM IN Location: [place] [address]- [id number] Reason for Visit Reason for Visit: Diagnoses Elevated white blood cell count, unspecified (07/21/24) Essential (primary) hypertension (07/21/24) Pulmonary hypertension, unspecified (07/21/24) Other hypertrophic cardiomyopathy (07/21/24) Acute systolic (congestive) heart failure (07/21/24) Unspecified diastolic (congestive) heart failure (07/21/24) Heart failure, unspecified (07/21/24) Gastritis, unspecified, with bleeding (07/21/24) Unspecified abdominal pain (07/21/24) Nausea with vomiting, unspecified (07/21/24) Other specified abnormal findings of blood chemistry (07/21/24) Personal history of other diseases of the circulatory system (07/21/24) Presence of cardiac pacemaker (07/21/24) Presence of automatic (implantable) cardiac defibrillator (07/21/24) Subjective Subjective Still chest pain around her chest into her back. Objective Data Objective Data Vital Signs: Vital Signs Temp Pulse Resp BP Pulse Ox O2 Del Method 36.2 C L 61 18 115/69 99 Room Air 07/22/24 05:44 07/22/24 05:44 07/22/24 05:44 07/22/24 05:44 07/22/24 05:44 07/22/24 08:10 Oxygen Delivery Method Room Air Weight: 61.6 kg Body Mass Index (BMI) 23.3 Intake & Output: Intake and Output for Last 24 Hours 07/20/24 07/21/24 07/22/24 23:59 23:59 23:59 Intake Total 500 / 500 900 / 900 Balance 500 / 500 900 / 900 Lab / Micro Data 07/22/24 04:10 07/22/24 04:10 Labs: Laboratory Results - last 24 hr 07/22/24 04:10: WBC 14.9 H, RBC 3.96 L, Hgb 12.7, Hct 39.1, MCV 98.7, MCH 32.1 H, MCHC 32.5, RDW Std Deviation 51.6 H, RDW Coeff of Damon 14.1, Plt Count 280, MPV11.1, Immature Gran % (Auto) 1.200 H, Neut % (Auto) 87.1 H, Lymph % (Auto) 6.4 L, [place] % (Auto) 4.8, Eos % (Auto) 0.2, Baso % (Auto) 0.3, Absolute Neuts (auto) 13.0 H, Absolute Lymphs (auto) 0.95, Nucleated RBC % 0, Sodium 135, Potassium 4.0, Chloride 100, Carbon Dioxide 20.0 L, Anion Gap 15, BUN 29 H, Creatinine 1.05, Estim Creat Clear Calc 59.04, Est GFR (MDRD) Non-Af 67, BUN/Creatinine Ratio 27.6 H, Glucose 112 H, Calcium 9.1 Radiography Diagnostic Testing: Radiology Impression Echocardiogram 07/21/24 00:48 Interpretation Summary Mild concentric left ventricular hypertrophy. Generalized LV hypokinesis. Estimated LVEF 35%. Stage II diastolic dysfunction. 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 The left atrium is severely enlarged. Suspect vegetation on the atrial side of the ICD wire. Similar finding noted however on reviewing echocardiogram from 2023. Consider MICKI for further evaluation if clinically indicated. Mild (1+) mitral valve insufficiency. Moderate (2+) tricuspid valve insufficiency. Right ventricular systolic pressure estimated to be 77 mmHg. Severe pulmonary hypertension. Ordering Physician: Sergio Umaña Referring Physician: Dex Sutherland Performed By: Maru Kothari RDCS Physical Exam Const alert and no apparent distress Constitutional Narrative: uncomfortable. HEENT head/scalp atraumatic and moist oral mucous membranes Resp normal respiratory effort, no retractions, no use of accessory muscles and clearto auscultation bilaterally Cardio regular rate, regular rhythm, S1 normal heart sound and S2 normal heart sound GI normal to inspection, nondistended, normoactive bowel sounds, soft to palpation and non-tender Extremity normal to inspection Neuro Sensorium / Orientation: awake and alert Assessment & Plan Assessment/Plan (1) HFrEF (heart failure with reduced ejection fraction): PLAN: acute Echo from 09/13/23: EF 50%, PASP 58mmHg. Now 35% with stage II DD. Severely enlarged LA. RVSP 77mmHg. CW severe pulmonary hypertension. s/p single-lead AICD CTA chest showed bilateral pleural effusions On IV furosemide 20 IV BID. Continue carvedilol 3.125 BID, empagliflozin 10/d, lisinopril 5 BID, spironolactone 12.5/d cards recommending outpt cardiac MRI (2) Elevated troponin: PLAN: minimal elevation. I doubt cardiac ischemia. Either baseline levels v demand ischemia from CHF in pt with hypertrophic cardiomyopathy. (3) Vegetation of heart valve: PLAN: Not valvular, but on ICD wire (atrial side). Previously noted in 2023. FRANCO Clay, who recommend blood cultures to rule out infective endocarditis. Follow up blood cultures. If positive, will need MICKI. FRANCO Clay pt would require GI clearance prior to undergoing a MICKI. (4) Pulmonary hypertension: PLAN: suspect group 2. PE ruled on CTA unlikely group 1 component, may benefit from referral to pulmonary hypertension specialist. Pt states that she plans on following up with Dr. Aguilar at [facility], CTS at [facility] that specialized in cardiac transplantation. She may be refferred by Dr. Aguilar since she will be following up there. PLAN: Plan VTE prophylaxis: LMWH. Charges/Coding Visit Charges Inpatient E&M: 83481 Subs Hosp L2 07/22/24 0431 <Electronically signed by Willian Ovalles DO> Cosigner Signature (if applicable): CC: ~ Signed [facility] Work Phone: 1(467) 172-134305-11-2025 Progress note Author Saman Clay [facility] Note Date/Time July 22, 2024 12:00 pm [facility] Medical Records Department [address] [place] [address] Progress Note - Cardiology 07/22/24 1157 MR#: [id number] Acct: [id number] Name: MICHELLE MITCHELL Rep #:[id number] : 1980 43 From: Saman Clay MD PCP: Dr. Dex Sutherland MD Status:A DM IN Location: [place] [address] Subjective Subjective Continues to complain of abdominal pain. Also shortness of breath with exertion. Objective Data Vital Signs: Vital Signs Temp Pulse Resp BP Pulse Ox O2 Del Method 97.3 F L 55 L 18 124/75 H 99 Room Air 07/22/24 08:00 07/22/24 08:00 07/22/24 08:00 07/22/24 08:00 07/22/24 08:00 07/22/24 08:10 Oxygen Delivery Method Room Air Weight: 135 lb 12.876 oz Body Mass Index (BMI) 23.3 Intake & Output: Intake and Output for Last 24 Hours 07/20/24 07/21/24 07/22/24 23:59 23:59 23:59 Intake Total 500 / 500 900 / 900 Balance 500 / 500 900 / 900 Lab / Micro Data 07/22/24 04:10 07/22/24 04:10 Labs: Laboratory Results - last 24 hr 07/22/24 04:10: WBC 14.9 H, RBC 3.96 L, Hgb 12.7, Hct 39.1, MCV 98.7, MCH 32.1 H, MCHC 32.5, RDW Std Deviation 51.6 H, RDW Coeff of Damon 14.1, Plt Count 280, MPV11.1, Immature Gran % (Auto) 1.200 H, Neut % (Auto) 87.1 H, Lymph % (Auto) 6.4 L, [place] % (Auto) 4.8, Eos % (Auto) 0.2, Baso % (Auto) 0.3, Absolute Neuts (auto) 13.0 H, Absolute Lymphs (auto) 0.95, Nucleated RBC % 0, Sodium 135, Potassium 4.0, Chloride 100, Carbon Dioxide 20.0 L, Anion Gap 15, BUN 29 H, Creatinine 1.05, Estim Creat Clear Calc 59.04, Est GFR (MDRD) Non-Af 67, BUN/Creatinine Ratio 27.6 H, Glucose 112 H, Calcium 9.1 Cardiology Labs/Tests 07/22/24 04:10: WBC 14.9 H, RBC 3.96 L, Hgb 12.7, Hct 39.1, MCV 98.7, MCH 32.1 H, MCHC 32.5, Plt Count 280, MPV 11.1, Immature Gran % (Auto) 1.200 H, Neut % (Auto) 87.1 H, Lymph % (Auto) 6.4 L, [place] % (Auto) 4.8, Eos % (Auto) 0.2, Baso %(Auto) 0.3, Absolute Neuts (auto) 13.0 H, Nucleated RBC % 0, Sodium 135, Potassium 4.0, Chloride 100, Carbon Dioxide 20.0 L, Anion Gap 15, BUN 29 H, Creatinine 1.05, Est GFR (MDRD) Non-Af 67, BUN/Creatinine Ratio 27.6 H, Glucose 112 H, Calcium 9.1 Rhythm: EKG: ECHO: Stress Test: Cardiac Cath: PCI: CT Surgery: Holter monitor: EPS: PPM: CXR: Chest CT Scan: Radiography Diagnostic Testing: Radiology Impression Echocardiogram 07/21/24 00:48 Interpretation Summary Mild concentric left ventricular hypertrophy. Generalized LV hypokinesis. Estimated LVEF 35%. Stage II diastolic dysfunction. 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 The left atrium is severely enlarged. Suspect vegetation on the atrial side of the ICD wire. Similar finding noted however on reviewing echocardiogram from 2023. Consider MICKI for further evaluation if clinically indicated. Mild (1+) mitral valve insufficiency. Moderate (2+) tricuspid valve insufficiency. Right ventricular systolic pressure estimated to be 77 mmHg. Severe pulmonary hypertension. Ordering Physician: Sergio Umaña Referring Physician: Dex Sutherland Performed By: Maru Kothari RDCS Physical Exam Narrative Comfortable. No apparent distress. Heart sounds 1 and 2 noted. S3. Chest clear to auscultation bilaterally. Alert oriented x 3. No ankle edema. Assessment & Plan Assessment/Plan (1) Acute systolic congestive heart failure, NYHA class 3: PLAN: LVEF 35%. Diuretics. Low-dose beta-blockers. ACEI. Spironolactone. SGLT2 inhibitor. (2) History of hypertrophic cardiomyopathy: PLAN: History of familial hypertrophic cardiomyopathy. LVEF down now. Echocardiogram with suspicion of LV noncompaction as well. Will recommend doinga cardiac MRI as an outpatient for further evaluation. (3) Presence of implantable cardioverter-defibrillator (ICD): PLAN: Echocardiogram suspicious for possible vegetation on the ICD lead in the right atrial part. However same noted on review of echocardiogram from 2023. Patient denies any fevers or chills. Doubt endocarditis clinically. Recommend checking blood cultures. Possible MICKI for further evaluation. (4) Severe pulmonary hypertension: PLAN: History of pulmonary embolism. Combined systolic and diastolic congestiveheart failure. Diuretics. Recommend referral to pulmonary hypertension clinic as outpatient. (5) Hypertension: PLAN: Beta-blockers, ACEI, diuretics. (6) Hemorrhagic gastritis: PLAN: On pantoprazole. DC aspirin. 07/22/24 1200 <Electronically signed by Saman Clay MD> Cosigner Signature (if applicable): CC: ~ Signed [facility] Work Phone: 1(469) 633-945605-11-2025 Progress note [facility] Medical Records Department [address] [place] [address] Progress Note - Hospitalist 07/22/24 0852 MR#: [id number] Acct: [id number] Name: MICHELLE MITCHELL Rep #:[id number] : 1980 43 From: Willian Ovalles DO PCP: Dr. Dex Sutherland MD Status:A DM IN Location: [place] [address] Reason for Visit Reason for Visit: Diagnoses Elevated white blood cell count, unspecified (07/21/24) Essential (primary) hypertension (07/21/24) Pulmonary hypertension, unspecified (07/21/24) Other hypertrophic cardiomyopathy (07/21/24) Acute systolic (congestive) heart failure (07/21/24) Unspecified diastolic (congestive) heart failure (07/21/24) Heart failure, unspecified (07/21/24) Gastritis, unspecified, with bleeding (07/21/24) Unspecified abdominal pain (07/21/24) Nausea with vomiting, unspecified (07/21/24) Other specified abnormal findings of blood chemistry (07/21/24) Personal history of other diseases of the circulatory system (07/21/24) Presence of cardiac pacemaker (07/21/24) Presence of automatic (implantable) cardiac defibrillator (07/21/24) Subjective Subjective Still chest pain around her chest into her back. Objective Data Objective Data Vital Signs: Vital Signs Temp Pulse Resp BP Pulse Ox O2 Del Method 36.2 C L 61 18 115/69 99 Room Air 07/22/24 05:44 07/22/24 05:44 07/22/24 05:44 07/22/24 05:44 07/22/24 05:44 07/22/24 08:10 Oxygen Delivery Method Room Air Weight: 61.6 kg Body Mass Index (BMI) 23.3 Intake & Output: Intake and Output for Last 24 Hours 07/20/24 07/21/24 07/22/24 23:59 23:59 23:59 Intake Total 500 / 500 900 / 900 Balance 500 / 500 900 / 900 Lab / Micro Data 07/22/24 04:10 07/22/24 04:10 Labs: Laboratory Results - last 24 hr 07/22/24 04:10: WBC 14.9 H, RBC 3.96 L, Hgb 12.7, Hct 39.1, MCV 98.7, MCH 32.1 H, MCHC 32.5, RDW Std Deviation 51.6 H, RDW Coeff of Damon 14.1, Plt Count 280, MPV11.1, Immature Gran % (Auto) 1.200 H, Neut % (Auto) 87.1 H, Lymph % (Auto) 6.4 L, [place] % (Auto) 4.8, Eos % (Auto) 0.2, Baso % (Auto) 0.3, Absolute Neuts (auto) 13.0 H, Absolute Lymphs (auto) 0.95, Nucleated RBC % 0, Sodium 135, Potassium 4.0, Chloride 100, Carbon Dioxide 20.0 L, Anion Gap 15, BUN 29 H, Creatinine 1.05, Estim Creat Clear Calc 59.04, Est GFR (MDRD) Non-Af 67, BUN/Creatinine Ratio 27.6 H, Glucose 112 H, Calcium 9.1 Radiography Diagnostic Testing: Radiology Impression Echocardiogram 07/21/24 00:48 Interpretation Summary Mild concentric left ventricular hypertrophy. Generalized LV hypokinesis. Estimated LVEF 35%. Stage II diastolic dysfunction. 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 The left atrium is severely enlarged. Suspect vegetation on the atrial side of the ICD wire. Similar finding noted however on reviewing echocardiogram from 2023. Consider MICKI for further evaluation if clinically indicated. Mild (1+) mitral valve insufficiency. Moderate (2+) tricuspid valve insufficiency. Right ventricular systolic pressure estimated to be 77 mmHg. Severe pulmonary hypertension. Ordering Physician: Sergio Umaña Referring Physician: Dex Sutherland Performed By: Saniya, Maru, RDCS Physical Exam Const alert and no apparent distress Constitutional Narrative: uncomfortable. HEENT head/scalp atraumatic and moist oral mucous membranes Resp normal respiratory effort, no retractions, no use of accessory muscles and clearto auscultation bilaterally Cardio regular rate, regular rhythm, S1 normal heart sound and S2 normal heart sound GI normal to inspection, nondistended, normoactive bowel sounds, soft to palpation and non-tender Extremity normal to inspection Neuro Sensorium / Orientation: awake and alert Assessment & Plan Assessment/Plan (1) HFrEF (heart failure with reduced ejection fraction): PLAN: acute Echo from 09/13/23: EF 50%, PASP 58mmHg. Now 35% with stage II DD. Severely enlarged LA. RVSP 77mmHg.CW severe pulmonary hypertension. s/p single-lead AICD CTA chest showed bilateral pleural effusions On IV furosemide 20 IV BID. Continue carvedilol 3.125 BID, empagliflozin 10/d, lisinopril 5 BID, spironolactone 12.5/d cards recommending outpt cardiac MRI (2) Elevated troponin: PLAN: minimal elevation. I doubt cardiac ischemia. Either baseline levels v demand ischemia from CHF in pt with hypertrophic cardiomyopathy. (3) Vegetation of heart valve: PLAN: Not valvular, but on ICD wire (atrial side). Previously noted in 2023. DW Dr. Clay, who recommend blood cultures to rule out infective endocarditis. Follow up blood cultures. If positive, will need MICKI. FRANCO Clay pt would require GI clearance prior to undergoing a MICKI. (4) Pulmonary hypertension: PLAN: suspect group 2. PE ruled on CTA unlikely group 1 component, may benefit from referral to pulmonary hypertension specialist. Pt states that she plans on following up with Dr. Aguilar at [facility], CTS at [facility] that specialized in cardiac transplantation. She may be refferred by Dr. Aguilar since she will be following up there. PLAN: Plan VTE prophylaxis: LMWH. Charges/Coding Visit Charges Inpatient E&M: 58517 Subs Hosp L2 07/22/24 0166 Cosigner Signature (if applicable): CC: ~ Signed [facility]05-11-2025 Progress note [facility] Medical Records Department [address] [place] [address] Progress Note - Cardiology 07/22/24 1157 MR#: [id number] Acct: [id number] Name: MICHELLE MITCHELL Rep #:[id number] : 1980 43 From: Saman Clay MD PCP: Dr. Dex Sutherland MD Status:A DM IN Location: [place] [address] Subjective Subjective Continues to complain of abdominal pain. Also shortness of breath with exertion. Objective Data Vital Signs: Vital Signs Temp Pulse Resp BP Pulse Ox O2 Del Method 97.3 F L 55 L 18 124/75 H 99 Room Air 07/22/24 08:00 07/22/24 08:00 07/22/24 08:00 07/22/24 08:00 07/22/24 08:00 07/22/24 08:10 Oxygen Delivery Method Room Air Weight: 135 lb 12.876 oz Body Mass Index (BMI) 23.3 Intake & Output: Intake and Output for Last 24 Hours 07/20/24 07/21/24 07/22/24 23:59 23:59 23:59 Intake Total 500 / 500 900 / 900 Balance 500 / 500 900 / 900 Lab / Micro Data 07/22/24 04:10 07/22/24 04:10 Labs: Laboratory Results - last 24 hr 07/22/24 04:10: WBC 14.9 H, RBC 3.96 L, Hgb 12.7, Hct 39.1, MCV 98.7, MCH 32.1 H, MCHC 32.5, RDW Std Deviation 51.6 H, RDW Coeff of Damon 14.1, Plt Count 280, MPV11.1, Immature Gran % (Auto) 1.200 H, Neut % (Auto) 87.1 H, Lymph % (Auto) 6.4 L, [place] % (Auto) 4.8, Eos % (Auto) 0.2, Baso % (Auto) 0.3, Absolute Neuts (auto) 13.0 H, Absolute Lymphs (auto) 0.95, Nucleated RBC % 0, Sodium 135, Potassium 4.0, Chloride 100, Carbon Dioxide 20.0 L, Anion Gap 15, BUN 29 H, Creatinine 1.05, Estim Creat Clear Calc 59.04, Est GFR (MDRD) Non-Af 67, BUN/Creatinine Ratio 27.6 H, Glucose 112 H, Calcium 9.1 Cardiology Labs/Tests 07/22/24 04:10: WBC 14.9 H, RBC 3.96 L, Hgb 12.7, Hct 39.1, MCV 98.7, MCH 32.1 H, MCHC 32.5, Plt Count 280, MPV 11.1, Immature Gran % (Auto) 1.200 H, Neut % (Auto) 87.1 H, Lymph % (Auto) 6.4 L, [place] % (Auto) 4.8, Eos % (Auto) 0.2, Baso %(Auto) 0.3, Absolute Neuts (auto) 13.0 H, Nucleated RBC % 0, Sodium 135, Potassium 4.0, Chloride 100, Carbon Dioxide 20.0 L, Anion Gap 15, BUN 29 H, Creatinine 1.05, Est GFR (MDRD) Non-Af 67, BUN/Creatinine Ratio 27.6 H, Glucose 112 H, Calcium 9.1 Rhythm: EKG: ECHO: Stress Test: Cardiac Cath: PCI: CT Surgery: Holter monitor: EPS: PPM: CXR: Chest CT Scan: Radiography Diagnostic Testing: Radiology Impression Echocardiogram 07/21/24 00:48 Interpretation Summary Mild concentric left ventricular hypertrophy. Generalized LV hypokinesis. Estimated LVEF 35%. Stage II diastolic dysfunction. 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 The left atrium is severely enlarged. Suspect vegetation on the atrial side of the ICD wire. Similar finding noted however on reviewing echocardiogram from 2023. Consider MICKI for further evaluation if clinically indicated. Mild (1+) mitral valve insufficiency. Moderate (2+) tricuspid valve insufficiency. Right ventricular systolic pressure estimated to be 77 mmHg. Severe pulmonary hypertension. Ordering Physician: Sergio Umaña Referring Physician: Dex Sutherland Performed By: Maru Kothari RDCS Physical Exam Narrative Comfortable. No apparent distress. Heart sounds 1 and 2 noted. S3. Chest clear to auscultation bilaterally. Alert oriented x 3. No ankle edema. Assessment & Plan Assessment/Plan (1) Acute systolic congestive heart failure, NYHA class 3: PLAN: LVEF 35%. Diuretics. Low-dose beta-blockers. ACEI. Spironolactone. SGLT2 inhibitor. (2) History of hypertrophic cardiomyopathy: PLAN: History of familial hypertrophic cardiomyopathy. LVEF down now. Echocardiogram with suspicionof LV noncompaction as well. Will recommend doinga cardiac MRI as an outpatient for further evaluation. (3) Presence of implantable cardioverter-defibrillator (ICD): PLAN: Echocardiogram suspicious for possible vegetation on the ICD lead in the right atrial part. However same noted on review of echocardiogram from 2023. Patient denies any fevers or chills. Doubt endocarditis clinically. Recommend checking blood cultures. Possible MICKI for further evaluation. (4) Severe pulmonary hypertension: PLAN: History of pulmonary embolism. Combined systolic and diastolic congestiveheart failure. Diuretics. Recommend referral to pulmonary hypertension clinic as outpatient. (5) Hypertension: PLAN: Beta-blockers, ACEI, diuretics. (6) Hemorrhagic gastritis: PLAN: On pantoprazole. DC aspirin. 07/22/24 1200 Cosigner Signature (if applicable): CC: ~ Signed [facility]05-10-2025 Consult note Author Saman Clay [facility] Note Date/Time July 21, 2024 1:26p m [facility] Medical Records Department [address] [place] [address] Consultation - Cardiology 07/21/24 1316 MR#: [id number] Acct: [id number] Name: ALBADELMIMICHELLE Stephens Rep #:[id number] : 1980 43 From: Saman Clay MD PCP: Dr. Dex Sutherland MD Status:A DM IN Location: [place] [address] Assessment & Plan Assessment/Plan (1) Acute systolic congestive heart failure, NYHA class 3: PLAN: LVEF 35%. Diuretics. Low-dose beta-blockers. ACEI. Spironolactone. SGLT2 inhibitor. (2) History of hypertrophic cardiomyopathy: PLAN: History of familial hypertrophic cardiomyopathy. LVEF down now. Echocardiogram with suspicion of LV noncompaction as well. Will recommend doinga cardiac MRI as an outpatient for further evaluation. (3) Presence of implantable cardioverter-defibrillator (ICD): PLAN: Echocardiogram suspicious for possible vegetation on the ICD lead in the right atrial part. However same noted on review of echocardiogram from 2023. Patient denies any fevers or chills. Doubt endocarditis clinically. Recommend checking blood cultures. Possible MICKI for further evaluation. (4) Severe pulmonary hypertension: PLAN: History of pulmonary embolism. Combined systolic and diastolic congestiveheart failure. Diuretics. (5) Hypertension: PLAN: Beta-blockers, ACEI, diuretics. (6) Hemorrhagic gastritis: PLAN: On pantoprazole. DC aspirin. HPI Consult Data Date of Consult: 07/21/24 HPI Narrative Reason for Consultation: CHF HPI Narrative: This lady has a history of familial hypertrophic cardiomyopathy diagnosed about 15 years ago with a history of ICD implant. Also history of pulmonary embolism. She has a sister with history of cardiac transplant. Recently patient has been complaining of constant abdominal pain along with nausea. She has had an EGD done earlier this month which showed hemorrhagic gastritis. Patient presented to the emergency room yesterday with a complaint of acute onset dyspnea and a near syncope. No chest pain. No ICD discharge. Patient denies any orthopnea. No PND. No ankle edema. Per her, she has been having some exertional dyspnea over the last couple of days only. Patient's preliminary workup revealed elevated proBNP. CT scan of the chest wasnegative for pulmonary embolism however it showed pulmonary edema. Elevated right heart pressures were also suggested with contrast reflux into the hepatic veins. [facility] Medical History (Updated 07/21/24 @ 13:[address] 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 cancer [facility] current use of 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 Ovarian cancer GERD (gastroesophageal reflux disease) Insomnia Anxiety Collapsed lung History of blood clots Asthma Breast cancer Pacemaker ICD (implantable cardioverter-defibrillator) in place Hypertrophic cardiomyopathy Home Medications ?Medication ?Instructions ?Recorded ?Last Taken ?Type alprazolam 0.5 mg tablet 0.5 mg PO BID 11/13/2107/11 History zolpidem 10 mg tablet 10 mg PO QHS 11/13/21 History albuterol sulfate 90 mcg/actuation 1 inh inhalation NJ N 07/26/23 Unknown History aerosol inhaler dicyclomine 20 mg tablet 20 mg PO TID PRN abdominal p ain 07/03/24 Unknown Rx #30 tabs pantoprazole 20 mg tablet,delayed 20 mg PO BID 5 07/11/24 History release sucralfate 1 gram tablet (Carafate) 1 g PO BIDCM 07/1007/11/24 History prednisone 20 mg tablet 40 mg PO Q12H 07/20/24 Unkno wn History Allergy/AdvReac Type Severity Reaction Status Date / Time morphine Allergy Mild Hives Verified 07/20/24 19:03 codeine Allergy Hives Verified 07/20/24 19:03 erythromycin base Allergy PT UNSURE Verified 07/20/24 19:03 OF REACTION Fish Containing Products Allergy Other Verified 07/20/24 19:03 levofloxacin Allergy PT UNSURE Verified 07/20/24 19:03 OF REACTION shellfish derived Allergy Other Verified 07/20/24 19:03 tramadol Allergy Hives Verified 07/20/24 19:03 trimethobenzamide (From Allergy Other Verified 07/20/24 19:03 Tigan) gabapentin (From Neurontin) AdvReac Severe Anaphylaxis Verified 07/20/24 19:03 acetaminophen (From Vicodin) AdvReac Other Verified 07/20/24 19:03 hydrocodone (From Vicodin) AdvReac Other Verified 07/20/24 19:03 metoclopramide (From Reglan) AdvReac Other Verified 07/20/24 19:03 Family History Father Heart disease Idiopathic hypertrophic subaortic stenosis, hypertrophic obstructive cardiomyopathy, congestive heart failure Mother Breast cancer DVT (deep venous thrombosis) Sister Hypertrophic obstructive cardiomyopathy heart transplant at age 34 Cancer Brain, breast, and colon Grandfather Heart disease at age 45 Grandmother CVA (cerebral vascular accident) age 43 Surgical History (Updated 07/21/24 @ 13:[address] Saman Clay MD) History of cardiac catheterization History of oophorectomy History of cervical polypectomy History of colonoscopy History of tubal ligation History of mastectomy History of cholecystectomy Hx of appendectomy Social History household members: spouse and family housing: house current occupational status: employed Smoking Status: Current every day smoker tobacco type: cigarettes how long ago did patient quit smokin months ago alcohol intake: former substance use type: does not use caffeine: Yes Physical Exam Narrative Comfortable. No apparent distress. Heart sounds 1 and 2 noted. S3. Chest clear to auscultation bilaterally. Alert oriented x 3. No ankle edema. Risk Stratification Risk Stratification Applicable: No Objective Data Vital Signs: Vital Signs Temp Pulse Resp BP Pulse Ox O2 Del Method 97.3 F L 60 16 144/88 H 100 Room Air 07/21/24 09:35 07/21/24 09:35 07/21/24 09:35 07/21/24 09:35 07/21/24 09:35 07/21/24 09:35 Oxygen Delivery Method Room Air Weight: 133 lb 13.129 oz Body Mass Index (BMI) 22.9 Intake & Output: Intake and Output for Last 24 Hours 07/19/24 07/20/24 07/21/24 23:59 23:59 23:59 Intake Total 500 / 500 450 / 450 Balance 500 / 500 450 / 450 Lab / Micro Data Attestation: I reviewed the patient's lab results. 07/21/24 05:30 07/21/24 05:30 Labs: Laboratory Results - last 24 hr 07/20/24 19:26: WBC 14.3 H, RBC 4.11 L, Hgb 13.2, Hct 40.2, MCV 97.8, MCH 32.1 H, MCHC 32.8, RDW Std Deviation 51.0 H, RDW Coeff of Damon 14.1, Plt Count 303, MPV10.3, Immature Gran % (Auto) 1.000 H, Neut % (Auto) 94.7 H, Lymph % (Auto) 2.7 L, [place] % (Auto) 1.5, Eos % (Auto) 0.0, Baso % (Auto) 0.1, Absolute Neuts (auto) 13.6 H, Absolute Lymphs (auto) 0.38 L, Nucleated RBC % 0, D-Dimer Quant (PE/DVT)1.06 H*, Sodium 135, Potassium 4.4, Chloride 104, Carbon Dioxide 19.0 L, Anion Gap 13, BUN 19, Creatinine 0.88, Estim Creat Clear Calc 70.45, Est GFR (MDRD) Non-Af 83, BUN/Creatinine Ratio 21.8 H, Glucose 171 H, Hemoglobin A1c 5.6, Calcium 9.3, Total Bilirubin 0.61, Direct Bilirubin 0.29, AST 26, ALT 34, Alkaline Phosphatase 116 H, Troponin T High Sens 27 H, NT pro BNP II 6468 H, Total Protein 6.8, Albumin 4.3, Globulin 2.5, Albumin/Globulin Ratio 1.7, [id number] 07/20/24 20:05: Urine Color Straw, Urine Clarity Clear, Urine pH 6.0, Ur Specific [place] 1.020, Urine Protein 100 H, Urine Glucose (UA) Normal, Urine Ketones Negative, Urine Occult Blood 25 H, Urine Nitrite Negative, Urine Bilirubin Negative, Urine Urobilinogen Normal, Ur Leukocyte Esterase Negative, Urine RBC 0-5 SEEN, Urine WBC 0 SEEN, Ur Squamous Epith Cells 5-10 SEEN, Urine Bacteria 2+, Hyaline Casts 5-10 SEEN, Urine Mucus 1+, Urine Test Negative 07/20/24 22:30: Troponin T Hi Sens 2 Hr 36 H 07/20/24 23:47: Magnesium 1.9, Troponin T Hi Sens 4Hr 37 H, TSH 1.400 07/21/24 05:30: WBC 17.0 H, RBC 4.21, Hgb 13.6, Hct 41.0, MCV 97.4, MCH 32.3 H, MCHC 33.2, RDW Std Deviation 51.1 H, RDW Coeff of Damon 14.2, Plt Count 307, MPV 10.3, Immature Gran % (Auto) 1.000 H, Neut % (Auto) 92.6 H, Lymph % (Auto) 3.5 L, [place] % (Auto) 2.6, Eos % (Auto) 0.1, Baso % (Auto) 0.2, Absolute Neuts (auto) 15.8 H, Absolute Lymphs (auto) 0.59 L, Nucleated RBC % 0, Sodium 135, Potassium 4.8, Chloride 102, Carbon Dioxide 19.4 L, Anion Gap 14, BUN 23 H, Creatinine 0.99, Estim Creat Clear Calc 62.62, Est GFR (MDRD) Non-Af 72, BUN/Creatinine Ratio 23.1 H, Glucose 131 H, Calcium 9.3, Phosphorus 3.7, Total Bilirubin 0.59, AST 29, ALT 35, Alkaline Phosphatase 118 H, Total Protein 7.0, Albumin 4.4, Globulin 2.6, Albumin/Globulin Ratio 1.6, Triglycerides 224 H, Cholesterol 177, LDL Cholesterol, Calc 92, VLDL Cholesterol 45 H, HDL Cholesterol 40, Cholesterol/HDL Ratio 4.43 Cardiology Labs/Tests 07/20/24 19:26: WBC 14.3 H, RBC 4.11 L, Hgb 13.2, Hct 40.2, MCV 97.8, MCH 32.1 H, MCHC 32.8, Plt Count 303, MPV 10.3, Immature Gran % (Auto) 1.000 H, Neut % (Auto) 94.7 H, Lymph % (Auto) 2.7 L, [place] % (Auto) 1.5, Eos % (Auto) 0.0, Baso %(Auto) 0.1, Absolute Neuts (auto) 13.6 H, Nucleated RBC % 0, D-Dimer Quant (PE/DVT) 1.06 H*, Sodium 135, Potassium 4.4, Chloride 104, Carbon Dioxide 19.0 L, Anion Gap 13, BUN 19, Creatinine 0.88, Est GFR (MDRD) Non-Af 83, BUN/Creatinine Ratio 21.8 H, Glucose 171 H, Hemoglobin A1c 5.6, Calcium 9.3, Total Bilirubin 0.61, Direct Bilirubin 0.29 07/20/24 20:05: Urine Color Straw, Urine Clarity Clear, Urine pH 6.0, Ur Specific [place] 1.020, Urine Protein 100 H, Urine Glucose (UA) Normal, Urine Ketones Negative, Urine Occult Blood 25 H, Urine Nitrite Negative, Urine Bilirubin Negative, Urine Urobilinogen Normal, Ur Leukocyte Esterase Negative, Urine RBC 0-5 SEEN, Urine WBC 0 SEEN 07/20/24 23:47: Magnesium 1.9 07/21/24 05:30: WBC 17.0 H, RBC 4.21, Hgb 13.6, Hct 41.0, MCV 97.4, MCH 32.3 H, MCHC 33.2, Plt Count 307, MPV 10.3, Immature Gran % (Auto) 1.000 H, Neut % (Auto) 92.6 H, Lymph % (Auto) 3.5 L, [place] % (Auto) 2.6, Eos % (Auto) 0.1, Baso %(Auto) 0.2, Absolute Neuts (auto) 15.8 H, Nucleated RBC % 0, Sodium 135, Potassium 4.8, Chloride 102, Carbon Dioxide 19.4 L, Anion Gap 14, BUN 23 H, Creatinine 0.99, Est GFR (MDRD) Non-Af 72, BUN/Creatinine Ratio 23.1 H, Glucose 131 H, Calcium 9.3, Phosphorus 3.7, Total Bilirubin 0.59, Triglycerides 224 H, Cholesterol 177, VLDL Cholesterol 45 H, HDL Cholesterol 40, Cholesterol/HDL Ratio 4.43 Rhythm: Sinus rhythm. EKG: Sinus rhythm. Left anterior fascicular block. ECHO: LVEF 35%. Severe pulmonary hypertension. Stress Test: Cardiac Cath: PCI: CT Surgery: Holter monitor: EPS: PPM: CXR: Chest CT Scan: Radiography Diagnostic Testing: Radiology Impression Chest X-Ray 07/20/24 20:06 IMPRESSION: No Acute Findings. Reading Location: [facility] Abdomen/Pelvis CT 07/20/24 21:15 IMPRESSION: 1. No acute findings in the abdomen and pelvis. 2. Mild hepatomegaly with heterogenous hepatic attenuation. 3. Small abdominopelvic ascites. Reading Location: [facility] Chest CTA 07/20/24 21:15 IMPRESSION: 1. No evidence of pulmonary embolism. 2. Diffuse interlobular septal thickening, scattered ground-glass opacities and bilateral pleural effusions, concerning for pulmonary edema. 3. Cardiomegaly, with trace pericardial effusion. 4. Contrast reflux into the hepatic veins suggestive of right heart dysfunction. Reading Location: [facility] 07/21/24 1326 <Electronically signed by Saman Clay MD> Cosigner Signature (if applicable): CC: Dr. Dex Sutherland MD~ Signed [facility] Work Phone: 1(957) 794-510005-10-2025 Progress note Author Willian Ovalles [facility] Note Date/Time July 21, 2024 11:37 [facility] Medical Records Department [address] [place] [address] Progress Note - Hospitalist 07/21/24 0753 MR#: [id number] Acct: [id number] Name: MICHELLE MITCHELL Rep #:[id number] : 1980 43 From: Willian Ovalles DO PCP: Dr. Dex Sutherland MD Status:A DM IN Location: [place] [address] Reason for Visit Reason for Visit: Diagnoses Elevated white blood cell count, unspecified (07/21/24) Other hypertrophic cardiomyopathy (07/21/24) Heart failure, unspecified (07/21/24) Unspecified abdominal pain (07/21/24) Nausea with vomiting, unspecified (07/21/24) Other specified abnormal findings of blood chemistry (07/21/24) Presence of cardiac pacemaker (07/21/24) Presence of automatic (implantable) cardiac defibrillator (07/21/24) Subjective Subjective short of breath. Objective Data Objective Data Vital Signs: Vital Signs Temp Pulse Resp BP Pulse Ox O2 Del Method 36.7 C 64 14 128/93 H 97 Room Air 07/21/24 05:50 07/21/24 05:50 07/21/24 05:50 07/21/24 05:50 07/21/24 05:50 07/21/24 05:50 Oxygen Delivery Method Room Air Weight: 60.7 kg Body Mass Index (BMI) 22.9 Intake & Output: Intake and Output for Last 24 Hours 07/19/24 07/20/24 07/21/24 23:59 23:59 23:59 Intake Total 500 / 500 450 / 450 Balance 500 / 500 450 / 450 Lab / Micro Data 07/21/24 05:30 07/21/24 05:30 Labs: Laboratory Results - last 24 hr 07/20/24 19:26: WBC 14.3 H, RBC 4.11 L, Hgb 13.2, Hct 40.2, MCV 97.8, MCH 32.1 H, MCHC 32.8, RDW Std Deviation 51.0 H, RDW Coeff of Damon 14.1, Plt Count 303, MPV10.3, Immature Gran % (Auto) 1.000 H, Neut % (Auto) 94.7 H, Lymph % (Auto) 2.7 L, [place] % (Auto) 1.5, Eos % (Auto) 0.0, Baso % (Auto) 0.1, Absolute Neuts (auto) 13.6 H, Absolute Lymphs (auto) 0.38 L, Nucleated RBC % 0, D-Dimer Quant (PE/DVT)1.06 H*, Sodium 135, Potassium 4.4, Chloride 104, Carbon Dioxide 19.0 L, Anion Gap 13, BUN 19, Creatinine 0.88, Estim Creat Clear Calc 70.45, Est GFR (MDRD) Non-Af 83, BUN/Creatinine Ratio 21.8 H, Glucose 171 H, Hemoglobin A1c 5.6, Calcium 9.3, Total Bilirubin 0.61, Direct Bilirubin 0.29, AST 26, ALT 34, Alkaline Phosphatase 116 H, Troponin T High Sens 27 H, NT pro BNP II 6468 H, Total Protein 6.8, Albumin 4.3, Globulin 2.5, Albumin/Globulin Ratio 1.7, [id number] 07/20/24 20:05: Urine Color Straw, Urine Clarity Clear, Urine pH 6.0, Ur Specific [place] 1.020, Urine Protein 100 H, Urine Glucose (UA) Normal, Urine Ketones Negative, Urine Occult Blood 25 H, Urine Nitrite Negative, Urine Bilirubin Negative, Urine Urobilinogen Normal, Ur Leukocyte Esterase Negative, Urine RBC 0-5 SEEN, Urine WBC 0 SEEN, Ur Squamous Epith Cells 5-10 SEEN, Urine Bacteria 2+, Hyaline Casts 5-10 SEEN, Urine Mucus 1+, Urine Test Negative 07/20/24 22:30: Troponin T Hi Sens 2 Hr 36 H 07/20/24 23:47: Magnesium 1.9, Troponin T Hi Sens 4Hr 37 H, TSH 1.400 07/21/24 05:30: WBC 17.0 H, RBC 4.21, Hgb 13.6, Hct 41.0, MCV 97.4, MCH 32.3 H, MCHC 33.2, RDW Std Deviation 51.1 H, RDW Coeff of Damon 14.2, Plt Count 307, MPV 10.3, Immature Gran % (Auto) 1.000 H, Neut % (Auto) 92.6 H, Lymph % (Auto) 3.5 L, [place] % (Auto) 2.6, Eos % (Auto) 0.1, Baso % (Auto) 0.2, Absolute Neuts (auto) 15.8 H, Absolute Lymphs (auto) 0.59 L, Nucleated RBC % 0, Sodium 135, Potassium 4.8, Chloride 102, Carbon Dioxide 19.4 L, Anion Gap 14, BUN 23 H, Creatinine 0.99, Estim Creat Clear Calc 62.62, Est GFR (MDRD) Non-Af 72, BUN/Creatinine Ratio 23.1 H, Glucose 131 H, Calcium 9.3, Phosphorus 3.7, Total Bilirubin 0.59, AST 29, ALT 35, Alkaline Phosphatase 118 H, Total Protein 7.0, Albumin 4.4, Globulin 2.6, Albumin/Globulin Ratio 1.6, Triglycerides 224 H, Cholesterol 177, LDL Cholesterol, Calc 92, VLDL Cholesterol 45 H, HDL Cholesterol 40, Cholesterol/HDL Ratio 4.43 Radiography Diagnostic Testing: Radiology Impression Chest X-Ray 07/20/24 20:06 IMPRESSION: No Acute Findings. Reading Location: [facility] Abdomen/Pelvis CT 07/20/24 21:15 IMPRESSION: 1. No acute findings in the abdomen and pelvis. 2. Mild hepatomegaly with heterogenous hepatic attenuation. 3. Small abdominopelvic ascites. Reading Location: [facility] Chest CTA 07/20/24 21:15 IMPRESSION: 1. No evidence of pulmonary embolism. 2. Diffuse interlobular septal thickening, scattered ground-glass opacities and bilateral pleural effusions, concerning for pulmonary edema. 3. Cardiomegaly, with trace pericardial effusion. 4. Contrast reflux into the hepatic veins suggestive of right heart dysfunction. Reading Location: [facility] Physical Exam Const alert and no apparent distress Neck Neck Narrative: JVD Resp normal respiratory effort, no retractions, no use of accessory muscles and clearto auscultation bilaterally Cardio regular rate, regular rhythm, S1 normal heart sound and S2 normal heart sound GI normal to inspection, nondistended, normoactive bowel sounds, soft to palpation,non-tender and non-distended Assessment & Plan Assessment/Plan (1) (HFpEF) heart failure with preserved ejection fraction: PLAN: acute Echo from 09/13/23: EF 50%, PASP 58mmHg s/p single-lead AICD CTA chest showed bilateral pleural effusions On IV furosemide 20 IV BID cards consult (2) Leukocytosis: QUALIFIERS: Leukocytosis type: unspecified Qualified Code(s): D72.829 - Elevated white blood cell count, unspecified PLAN: Chronic. No evidence of pneumonia on CT DC abx and observe. (3) Elevated troponin: PLAN: minimal elevation. I doubt cardiac ischemia. Either baseline levels v demand ischemia from CHF in pt with hypertrophic cardiomyopathy. PLAN: Plan VTE prophylaxis: LMWH. Charges/Coding Visit Charges Inpatient E&M: 55679 Subs Hosp L2 07/21/24 1137 <Electronically signed by Willian Ovalles DO> Cosigner Signature (if applicable): CC: ~ Signed [facility] Work Phone: [phone] Consult note [facility] Medical Records Department [address] [place] [address] Consultation - Cardiology 07/21/24 1316 MR#: [id number] Acct: [id number] Name: MICHELLE MITCHELL Rep #:[id number] : 1980 43 From: Saman Clay MD PCP: Dr. Dex Sutherland MD Status:A DM IN Location: [place] [address] Assessment & Plan Assessment/Plan (1) Acute systolic congestive heart failure, NYHA class 3: PLAN: LVEF 35%. Diuretics. Low-dose beta-blockers. ACEI. Spironolactone. SGLT2 inhibitor. (2) History of hypertrophic cardiomyopathy: PLAN: History of familial hypertrophic cardiomyopathy. LVEF down now. Echocardiogram with suspicionof LV noncompaction as well. Will recommend doinga cardiac MRI as an outpatient for further evaluation. (3) Presence of implantable cardioverter-defibrillator (ICD): PLAN: Echocardiogram suspicious for possible vegetation on the ICD lead in the right atrial part. However same noted on review of echocardiogram from 2023. Patient denies any fevers or chills. Doubt endocarditis clinically. Recommend checking blood cultures. Possible MICKI for further evaluation. (4) Severe pulmonary hypertension: PLAN: History of pulmonary embolism. Combined systolic and diastolic congestiveheart failure. Diuretics. (5) Hypertension: PLAN: Beta-blockers, ACEI, diuretics. (6) Hemorrhagic gastritis: PLAN: On pantoprazole. DC aspirin. HPI Consult Data Date of Consult: 07/21/24 HPI Narrative Reason for Consultation: CHF HPI Narrative: This lady has a history of familial hypertrophic cardiomyopathy diagnosed about 15 years ago with ahistory of ICD implant. Also history of pulmonary embolism. She has a sister with history of cardiac transplant. Recently patient has been complaining of constant abdominal pain along with nausea. She has had an EGD done earlier this month which showed hemorrhagic gastritis. Patient presented to the emergency room yesterday with a complaint of acute onset dyspnea and a near syncope. No chest pain. No ICD discharge. Patient denies any orthopnea. No PND. No ankle edema. Per her, she has been having some exertional dyspnea over the last couple of days only. Patient's preliminary workup revealed elevated proBNP. CT scan of the chest wasnegative for pulmonary embolism however it showed pulmonary edema. Elevated right heart pressures were also suggested with contrast reflux into the hepatic veins. [facility] Medical History (Updated 07/21/24 @ 13:[address] 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 Ovarian cancer GERD (gastroesophageal reflux disease) Insomnia Anxiety Collapsed lung History of blood clots Asthma Breast cancer Pacemaker ICD (implantable cardioverter-defibrillator) in place Hypertrophic cardiomyopathy Home Medications ?Medication ?Instructions ?Recorded ?Last Taken ?Type alprazolam 0.5 mg tablet 0.5 mg PO BID 11/13/2107/11 History zolpidem 10 mg tablet 10 mg PO QHS 11/13/21 History albuterol sulfate 90 mcg/actuation 1 inh inhalation NJ N 07/26/23 Unknown History aerosol inhaler dicyclomine 20 mg tablet 20 mg PO TID PRN abdominal p ain 07/03/24 Unknown Rx #30 tabs pantoprazole 20 mg tablet,delayed 20 mg PO BID 5 07/11/24 History release sucralfate 1 gram tablet (Carafate) 1 g PO BIDCM 07/1007/11/24 History prednisone 20 mg tablet 40 mg PO Q12H 07/20/24 Unkno wn History Allergy/AdvReac Type Severity Reaction Status Date / Time morphine Allergy Mild Hives Verified 07/20/24 19:03 codeine Allergy Hives Verified 07/20/24 19:03 erythromycin base Allergy PT UNSURE Verified 07/20/24 19:03 OF REACTION Fish Containing Products Allergy Other Verified 07/20/24 19:03 levofloxacin Allergy PT UNSURE Verified 07/20/24 19:03 OF REACTION shellfish derived Allergy Other Verified 07/20/24 19:03 tramadol Allergy Hives Verified 07/20/24 19:03 trimethobenzamide (From Allergy Other Verified 07/20/24 19:03 Tigan) gabapentin (From Neurontin) AdvReac Severe Anaphylaxis Verified 07/20/24 19:03 acetaminophen (From Vicodin) AdvReac Other Verified 07/20/24 19:03 hydrocodone (From Vicodin) AdvReac Other Verified 07/20/24 19:03 metoclopramide (From Reglan) AdvReac Other Verified 07/20/24 19:03 Family History Father Heart disease Idiopathic hypertrophic subaortic stenosis, hypertrophic obstructive cardiomyopathy, congestive heart failure Mother Breast cancer DVT (deep venous thrombosis) Sister Hypertrophic obstructive cardiomyopathy heart transplant at age 34 Cancer Brain, breast, and colon Grandfather Heart disease at age 45 Grandmother CVA (cerebral vascular accident) age 43 Surgical History (Updated 07/21/24 @ 13:[address] Saman Clay MD) History of cardiac catheterization History of oophorectomy History of cervical polypectomy History of colonoscopy History of tubal ligation History of mastectomy History of cholecystectomy Hx of appendectomy Social History household members: spouse and family housing: house current occupational status: employed Smoking Status: Current every day smoker tobacco type: cigarettes how long ago did patient quit smokin months ago alcohol intake: former substance use type: does not use caffeine: Yes Physical Exam Narrative Comfortable. No apparent distress. Heart sounds 1 and 2 noted. S3. Chest clear to auscultation bilaterally. Alert oriented x 3. No ankle edema. Risk Stratification Risk Stratification Applicable: No Objective Data Vital Signs: Vital Signs Temp Pulse Resp BP Pulse Ox O2 Del Method 97.3 F L 60 16 144/88 H 100 Room Air 07/21/24 09:35 07/21/24 09:35 07/21/24 09:35 07/21/24 09:35 07/21/24 09:35 07/21/24 09:35 Oxygen Delivery Method Room Air Weight: 133 lb 13.129 oz Body Mass Index (BMI) 22.9 Intake & Output: Intake and Output for Last 24 Hours 07/19/24 07/20/24 07/21/24 23:59 23:59 23:59 Intake Total 500 / 500 450 / 450 Balance 500 / 500 450 / 450 Lab / Micro Data Attestation: I reviewed the patient's lab results. 07/21/24 05:30 07/21/24 05:30 Labs: Laboratory Results - last 24 hr 07/20/24 19:26: WBC 14.3 H, RBC 4.11 L, Hgb 13.2, Hct 40.2, MCV 97.8, MCH 32.1 H, MCHC 32.8, RDW Std Deviation 51.0 H, RDW Coeff of Damon 14.1, Plt Count 303, MPV10.3, Immature Gran % (Auto) 1.000 H, Neut % (Auto) 94.7 H, Lymph % (Auto) 2.7 L, [place] % (Auto) 1.5, Eos % (Auto) 0.0, Baso % (Auto) 0.1, Absolute Neuts (auto) 13.6 H, Absolute Lymphs (auto) 0.38 L, Nucleated RBC % 0, D-Dimer Quant (PE/DVT)1.06 H*, Sodium 135, Potassium 4.4, Chloride 104, Carbon Dioxide 19.0 L, Anion Gap 13, BUN 19, Creatinine 0.88, Estim Creat Clear Calc 70.45, Est GFR (MDRD) Non-Af 83, BUN/Creatinine Ratio 21.8 H, Glucose 171 H, Hemoglobin A1c 5.6, Calcium 9.3, Total Bilirubin 0.61, Direct Bilirubin 0.29, AST 26, ALT 34, Alkaline Phosphatase 116 H, Troponin T High Sens 27 H, NT pro BNP II 6468 H, Total Protein 6.8, Albumin 4.3, Globulin 2.5, Albumin/Globulin Ratio 1.7, [id number] 07/20/24 20:05: Urine Color Straw, Urine Clarity Clear, Urine pH 6.0, Ur Specific [place] 1.020, Urine Protein 100 H, Urine Glucose (UA) Normal, Urine Ketones Negative, Urine Occult Blood 25 H, UrineNitrite Negative, Urine Bilirubin Negative, Urine Urobilinogen Normal, Ur Leukocyte Esterase Negative, Urine RBC 0-5 SEEN, Urine WBC 0 SEEN, Ur Squamous Epith Cells 5-10 SEEN, Urine Bacteria 2+, Hyaline Casts 5-10 SEEN, Urine Mucus 1+, Urine Test Negative 07/20/24 22:30: Troponin T Hi Sens 2 Hr 36 H 07/20/24 23:47: Magnesium 1.9, Troponin T Hi Sens 4Hr 37 H, TSH 1.400 07/21/24 05:30: WBC 17.0 H, RBC 4.21, Hgb 13.6, Hct 41.0, MCV 97.4, MCH 32.3 H, MCHC 33.2, RDW Std Deviation 51.1 H, RDW Coeff of Damon 14.2, Plt Count 307, MPV 10.3, Immature Gran % (Auto) 1.000 H, Neut % (Auto) 92.6 H, Lymph % (Auto) 3.5 L, [place] % (Auto) 2.6, Eos % (Auto) 0.1, Baso % (Auto) 0.2, Absolute Neuts (auto) 15.8 H, Absolute Lymphs (auto) 0.59 L, Nucleated RBC % 0, Sodium 135, Potassium 4.8, Chloride 102, Carbon Dioxide 19.4 L, Anion Gap 14, BUN 23 H, Creatinine 0.99, Estim Creat ClearCalc 62.62, Est GFR (MDRD) Non-Af 72, BUN/Creatinine Ratio 23.1 H, Glucose 131 H, Calcium 9.3, Phosphorus 3.7, Total Bilirubin 0.59, AST 29, ALT 35, Alkaline Phosphatase 118 H, Total Protein 7.0, Albumin 4.4, Globulin 2.6, Albumin/Globulin Ratio 1.6, Triglycerides 224 H, Cholesterol 177, LDL Cholesterol, Calc 92, VLDL Cholesterol 45 H, HDL Cholesterol 40, Cholesterol/HDL Ratio 4.43 Cardiology Labs/Tests 07/20/24 19:26: WBC 14.3 H, RBC 4.11 L, Hgb 13.2, Hct 40.2, MCV 97.8, MCH 32.1 H, MCHC 32.8, Plt Count 303, MPV 10.3, Immature Gran % (Auto) 1.000 H, Neut % (Auto) 94.7 H, Lymph % (Auto) 2.7 L, [place] % (Auto) 1.5, Eos % (Auto) 0.0, Baso %(Auto) 0.1, Absolute Neuts (auto) 13.6 H, Nucleated RBC % 0, D-Dimer Quant (PE/DVT) 1.06 H*, Sodium 135, Potassium 4.4, Chloride 104, Carbon Dioxide 19.0 L, AnionGap 13, BUN 19, Creatinine 0.88, Est GFR (MDRD) Non-Af 83, BUN/Creatinine Ratio 21.8 H, Glucose 171H, Hemoglobin A1c 5.6, Calcium 9.3, Total Bilirubin 0.61, Direct Bilirubin 0.29 07/20/24 20:05: Urine Color Straw, Urine Clarity Clear, Urine pH 6.0, Ur Specific [place] 1.020, Urine Protein 100 H, Urine Glucose (UA) Normal, Urine Ketones Negative, Urine Occult Blood 25 H, UrineNitrite Negative, Urine Bilirubin Negative, Urine Urobilinogen Normal, Ur Leukocyte Esterase Negative, Urine RBC 0-5 SEEN, Urine WBC 0 SEEN 07/20/24 23:47: Magnesium 1.9 07/21/24 05:30: WBC 17.0 H, RBC 4.21, Hgb 13.6, Hct 41.0, MCV 97.4, MCH 32.3 H, MCHC 33.2, Plt Count 307, MPV 10.3, Immature Gran % (Auto) 1.000 H, Neut % (Auto) 92.6 H, Lymph % (Auto) 3.5 L, [place] % (Auto) 2.6, Eos % (Auto) 0.1, Baso %(Auto) 0.2, Absolute Neuts (auto) 15.8 H, Nucleated RBC % 0, Sodium 135, Potassium 4.8, Chloride 102, Carbon Dioxide 19.4 L, Anion Gap 14, BUN 23 H, Creatinine 0.99, Est GFR (MDRD) Non-Af 72, BUN/Creatinine Ratio 23.1 H, Glucose 131 H, Calcium 9.3, Phosphorus 3.7,Total Bilirubin 0.59, Triglycerides 224 H, Cholesterol 177, VLDL Cholesterol 45 H, HDL Cholesterol 40, Cholesterol/HDL Ratio 4.43 Rhythm: Sinus rhythm. EKG: Sinus rhythm. Left anterior fascicular block. ECHO: LVEF 35%. Severe pulmonary hypertension. Stress Test: Cardiac Cath: PCI: CT Surgery: Holter monitor: EPS: PPM: CXR: Chest CT Scan: Radiography Diagnostic Testing: Radiology Impression Chest X-Ray 07/20/24 20:06 IMPRESSION: No Acute Findings. Reading Location: [facility] Abdomen/Pelvis CT 07/20/24 21:15 IMPRESSION: 1. No acute findings in the abdomen and pelvis. 2. Mild hepatomegaly with heterogenous hepatic attenuation. 3. Small abdominopelvic ascites. Reading Location: [facility] Chest CTA 07/20/24 21:15 IMPRESSION: 1. No evidence of pulmonary embolism. 2. Diffuse interlobular septal thickening, scattered ground-glass opacities and bilateral pleural effusions, concerning for pulmonary edema. 3. Cardiomegaly, with trace pericardial effusion. 4. Contrast reflux into the hepatic veins suggestive of right heart dysfunction. Reading Location: [facility] 07/21/24 1326 Cosigner Signature (if applicable): CC: Dr. Dex Sutherland MD~ Signed [facility]05-10-2025 Progress note [facility] Medical Records Department [address] [place] [address] Progress Note - Hospitalist 07/21/24 0753 MR#: [id number] Acct: [id number] Name: MICHELLE MITCHELL Rep #:[id number] : 1980 43 From: Willian Ovalles DO PCP: Dr. Dex Sutherland MD Status:A DM IN Location: [place] [address] Reason for Visit Reason for Visit: Diagnoses Elevated white blood cell count, unspecified (07/21/24) Other hypertrophic cardiomyopathy (07/21/24) Heart failure, unspecified (07/21/24) Unspecified abdominal pain (07/21/24) Nausea with vomiting, unspecified (07/21/24) Other specified abnormal findings of blood chemistry (07/21/24) Presence of cardiac pacemaker (07/21/24) Presence of automatic (implantable) cardiac defibrillator (07/21/24) Subjective Subjective short of breath. Objective Data Objective Data Vital Signs: Vital Signs Temp Pulse Resp BP Pulse Ox O2 Del Method 36.7 C 64 14 128/93 H 97 Room Air 07/21/24 05:50 07/21/24 05:50 07/21/24 05:50 07/21/24 05:50 07/21/24 05:50 07/21/24 05:50 Oxygen Delivery Method Room Air Weight: 60.7 kg Body Mass Index (BMI) 22.9 Intake & Output: Intake and Output for Last 24 Hours 07/19/24 07/20/24 07/21/24 23:59 23:59 23:59 Intake Total 500 / 500 450 / 450 Balance 500 / 500 450 / 450 Lab / Micro Data 07/21/24 05:30 07/21/24 05:30 Labs: Laboratory Results - last 24 hr 07/20/24 19:26: WBC 14.3 H, RBC 4.11 L, Hgb 13.2, Hct 40.2, MCV 97.8, MCH 32.1 H, MCHC 32.8, RDW Std Deviation 51.0 H, RDW Coeff of Damon 14.1, Plt Count 303, MPV10.3, Immature Gran % (Auto) 1.000 H, Neut % (Auto) 94.7 H, Lymph % (Auto) 2.7 L, [place] % (Auto) 1.5, Eos % (Auto) 0.0, Baso % (Auto) 0.1, Absolute Neuts (auto) 13.6 H, Absolute Lymphs (auto) 0.38 L, Nucleated RBC % 0, D-Dimer Quant (PE/DVT)1.06 H*, Sodium 135, Potassium 4.4, Chloride 104, Carbon Dioxide 19.0 L, Anion Gap 13, BUN 19, Creatinine 0.88, Estim Creat Clear Calc 70.45, Est GFR (MDRD) Non-Af 83, BUN/Creatinine Ratio 21.8 H, Glucose 171 H, Hemoglobin A1c 5.6, Calcium 9.3, Total Bilirubin 0.61, Direct Bilirubin 0.29, AST 26, ALT 34, Alkaline Phosphatase 116 H, Troponin T High Sens 27 H, NT pro BNP II 6468 H, Total Protein 6.8, Albumin 4.3, Globulin 2.5, Albumin/Globulin Ratio 1.7, [id number] 07/20/24 20:05: Urine Color Straw, Urine Clarity Clear, Urine pH 6.0, Ur Specific [place] 1.020, Urine Protein 100 H, Urine Glucose (UA) Normal, Urine Ketones Negative, Urine Occult Blood 25 H, UrineNitrite Negative, Urine Bilirubin Negative, Urine Urobilinogen Normal, Ur Leukocyte Esterase Negative, Urine RBC 0-5 SEEN, Urine WBC 0 SEEN, Ur Squamous Epith Cells 5-10 SEEN, Urine Bacteria 2+, Hyaline Casts 5-10 SEEN, Urine Mucus 1+, Urine Test Negative 07/20/24 22:30: Troponin T Hi Sens 2 Hr 36 H 07/20/24 23:47: Magnesium 1.9, Troponin T Hi Sens 4Hr 37 H, TSH 1.400 07/21/24 05:30: WBC 17.0 H, RBC 4.21, Hgb 13.6, Hct 41.0, MCV 97.4, MCH 32.3 H, MCHC 33.2, RDW Std Deviation 51.1 H, RDW Coeff of Damon 14.2, Plt Count 307, MPV 10.3, Immature Gran % (Auto) 1.000 H, Neut % (Auto) 92.6 H, Lymph % (Auto) 3.5 L, [place] % (Auto) 2.6, Eos % (Auto) 0.1, Baso % (Auto) 0.2, Absolute Neuts (auto) 15.8 H, Absolute Lymphs (auto) 0.59 L, Nucleated RBC % 0, Sodium 135, Potassium 4.8, Chloride 102, Carbon Dioxide 19.4 L, Anion Gap 14, BUN 23 H, Creatinine 0.99, Estim Creat ClearCalc 62.62, Est GFR (MDRD) Non-Af 72, BUN/Creatinine Ratio 23.1 H, Glucose 131 H, Calcium 9.3, Phosphorus 3.7, Total Bilirubin 0.59, AST 29, ALT 35, Alkaline Phosphatase 118 H, Total Protein 7.0, Albumin 4.4, Globulin 2.6, Albumin/Globulin Ratio 1.6, Triglycerides 224 H, Cholesterol 177, LDL Cholesterol, Calc 92, VLDL Cholesterol 45 H, HDL Cholesterol 40, Cholesterol/HDL Ratio 4.43 Radiography Diagnostic Testing: Radiology Impression Chest X-Ray 07/20/24 20:06 IMPRESSION: No Acute Findings. Reading Location: [facility] Abdomen/Pelvis CT 07/20/24 21:15 IMPRESSION: 1. No acute findings in the abdomen and pelvis. 2. Mild hepatomegaly with heterogenous hepatic attenuation. 3. Small abdominopelvic ascites. Reading Location: [facility] Chest CTA 07/20/24 21:15 IMPRESSION: 1. No evidence of pulmonary embolism. 2. Diffuse interlobular septal thickening, scattered ground-glass opacities and bilateral pleural effusions, concerning for pulmonary edema. 3. Cardiomegaly, with trace pericardial effusion. 4. Contrast reflux into the hepatic veins suggestive of right heart dysfunction. Reading Location: [facility] Physical Exam Const alert and no apparent distress Neck Neck Narrative: JVD Resp normal respiratory effort, no retractions, no use of accessory muscles and clearto auscultation bilaterally Cardio regular rate, regular rhythm, S1 normal heart sound and S2 normal heart sound GI normal to inspection, nondistended, normoactive bowel sounds, soft to palpation,non-tender and non-distended Assessment & Plan Assessment/Plan (1) (HFpEF) heart failure with preserved ejection fraction: PLAN: acute Echo from 09/13/23: EF 50%, PASP 58mmHg s/p single-lead AICD CTA chest showed bilateral pleural effusions On IV furosemide 20 IV BID cards consult (2) Leukocytosis: QUALIFIERS: Leukocytosis type: unspecified Qualified Code(s): D72.829 - Elevated white blood cell count, unspecified PLAN: Chronic. No evidence of pneumonia on CT DC abx and observe. (3) Elevated troponin: PLAN: minimal elevation. I doubt cardiac ischemia. Either baseline levels v demand ischemia from CHF in pt with hypertrophic cardiomyopathy. PLAN: Plan VTE prophylaxis: LMWH. Charges/Coding Visit Charges Inpatient E&M: 99973 Subs Hosp L2 07/21/24 1137 Cosigner Signature (if applicable): CC: ~ Signed [facility]05-10-2025 History and physical note Author Sergio Whalen [facility] Note Date/Time July 21, 2024 6:28a m [facility] Medical Records Department [address] [place] [address] H&P Exam - Hospitalist 07/20/24 2322 MR#: [id number] Acct: [id number] Name: MICHELLE MITCHELL Rep #:[id number] : 1980 43 From: Sergio Giles DO PCP: Dr. Dex Sutherland MD Status:A DM IN Location: [facility] [id number] HPI - General General Date of Admission: 07/21/24 Date of Service: 07/20/24 Chief Complaint: SOB and Near Syncope. HPI Narrative MICHELLE MITCHELL, is a 43 F with a past medical history of former tobacco abuse (quit ~6 months ago), hypertrophic cardiomyopathy; s/p PPM/AICD (2017), history of asthma; on prn albuterol, history of PTX, history of PE; not currently on current anticoagulation, history of endometrial cancer, history of ovarian cancer; s/p Left oophorectomy, history of cervical polypectomy, history of breast cancer; s/p Left mastectomy, history of cholecystectomy, history of appendectomy, IBS, GERD with hiatal hernia; on pantoprazole and sucralfate, history of migraine headaches, generalized anxiety; on alprazolam BID, chronic insomnia; on zolpidem and history of recent colonoscopy ~8 days ago who presentsto [facility] ER complaining of shortness of breath and near syncope. Ms. Mitchell reports her symptoms began approximately 3 weeks ago on Tuesday, July 01, 2024 with diffuse, generalized abdominal pain that was constant and moderate - but was made acutely wore after her recent colonoscopy culminating in her turning blue and almost passing out just prior to arrival so she decided to come in for further evaluation and treatment. She also admitsto nausea with one episode of bilious emesis prior to coming in that was relieved with ondansetron. She denies associated chest pain, unilateral leg swelling, HRT, chemotherapy within the past 6 months, palpitations, heart racing, fever, chills, cough, dysuria, hematuria, headache or rash. In the ER she was noted to have an elevated NT pro-BNP II of 6,468 pg/mL with an elevated d-dimer of 1.06 present on admission so she then underwent a CTA of the chest with IV contrast to revealed no evidence of pulmonary embolism with diffuse interlobular septal thickening with scattered ground-glass opacities and bilateral pleural effusions concerning for pulmonary edema with cardiomegaly, trace pericardial effusion and reflux of contrast into the hepatic veins suggestive of Right heart dysfunction consistent with AE of CHF; of uncertain type with mildly elevated troponin T of 27 ng/L present on admission suspected to be due to Acute Cardiac Strain complicated by Leukocytosis of 14.3K with Left-shift of 1% present on admission with a UA negative for infection and a CT scan of the abdomen and pelvis that revealed no acute findings in the abdomen and pelvis with mild hepatomegaly with heterogenous hepatic attenuation with small abdominopelvic ascites. She was then admitted to the PCU for ongoing carefor a stay that is expected to extend beyond 2 midnights. [facility] Medical History (Updated 07/21/24 @ 01:[address] 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 Ovarian cancer GERD (gastroesophageal reflux disease) Insomnia Anxiety Collapsed lung History of blood clots Asthma Breast cancer Pacemaker ICD (implantable cardioverter-defibrillator) in place Hypertrophic cardiomyopathy Home Medications ?Medication ?Instructions ?Recorded ?Last Taken ?Type alprazolam 0.5 mg tablet 0.5 mg PO BID 11/13/2107/11 History zolpidem 10 mg tablet 10 mg PO QHS 11/13/21 History albuterol sulfate 90 mcg/actuation 1 inh inhalation NJ N 07/26/23 Unknown History aerosol inhaler dicyclomine 20 mg tablet 20 mg PO TID PRN abdominal p ain 07/03/24 Unknown Rx #30 tabs pantoprazole 20 mg tablet,delayed 20 mg PO BID 5 07/11/24 History release sucralfate 1 gram tablet (Carafate) 1 g PO BIDCM 07/1007/11/24 History prednisone 20 mg tablet 40 mg PO Q12H 07/20/24 Unkno wn History Allergy/AdvReac Type Severity Reaction Status Date / Time morphine Allergy Mild Hives Verified 07/20/24 19:03 codeine Allergy Hives Verified 07/20/24 19:03 erythromycin base Allergy PT UNSURE Verified 07/20/24 19:03 OF REACTION Fish Containing Products Allergy Other Verified 07/20/24 19:03 levofloxacin Allergy PT UNSURE Verified 07/20/24 19:03 OF REACTION shellfish derived Allergy Other Verified 07/20/24 19:03 tramadol Allergy Hives Verified 07/20/24 19:03 trimethobenzamide (From Allergy Other Verified 07/20/24 19:03 Tigan) gabapentin (From Neurontin) AdvReac Severe Anaphylaxis Verified 07/20/24 19:03 acetaminophen (From Vicodin) AdvReac Other Verified 07/20/24 19:03 hydrocodone (From Vicodin) AdvReac Other Verified 07/20/24 19:03 metoclopramide (From Reglan) AdvReac Other Verified 07/20/24 19:03 Family History Father Heart disease Idiopathic hypertrophic subaortic stenosis, hypertrophic obstructive cardiomyopathy, congestive heart failure Mother Breast cancer DVT (deep venous thrombosis) Sister Hypertrophic obstructive cardiomyopathy heart transplant at age 34 Cancer Brain, breast, and colon Grandfather Heart disease at age 45 Grandmother CVA (cerebral vascular accident) age 43 Surgical History History of cardiac catheterization History of oophorectomy History of cervical polypectomy History of colonoscopy History of tubal ligation History of mastectomy History of cholecystectomy Hx of appendectomy Social History household members: spouse and family housing: house current occupational status: employed Smoking Status: Current every day smoker tobacco type: cigarettes how long ago did patient quit smokin months ago alcohol intake: former substance use type: does not use caffeine: Yes ROS ROS Narrative Review of Systems: Constitutional: Patient denies fever or chills. Eyes: Patient denies changes in vision or discharge from eyes. ENT: Patient denies runny nose, sore throat or ear pain. Resp: Patient admits to SOB and turning blue as per HPI. She denies cough. CV: Patient denies chest pain, palpitations or heart racing. GI: Patient admits to diffuse, generalized abdominal pain made worse after recent colonoscopy with nausea and bilious emesis x 1 earlier today as per HPI. : Patient denies dysuria or hematuria. MSK: Patient denies arthralgias or myalgias. Skin: Patient denies rash, abscess, wounds or jaundice. Psych: Patient denies symptoms of uncontrolled depression or anxiety. Neuro: Patient denies headache, paresthesias or focal neurologic deficits. Allergy: Patient denies lip swelling, tongue swelling ur urticaria. Hematology: Patient denies easy bleeding or easy bruisability. Endocrinology: Patient denies polyuria, polydipsia, polyphagia or heat/cold intolerance. 14 point ROS otherwise negative except for positives noted above by HPI. Vital Signs Vital Signs Vital Signs: 07/20/24 18:57 07/20/24 21:00 07/20/24 21:00 Temperature 97.6 F L 98.3 F Temperature Source Temporal Oral Pulse Rate 88 74 75 Respiratory Rate 22 H 20 H 21 H Respiratory Effort Respiratory Depth Respiratory Pattern Blood Pressure 146/101 H 149/90 H 149/90 H Blood Pressure Mean 116 109 109 Pulse Ox 98 98 100 Oxygen Delivery Method Room Air Room Air 07/20/24 23:00 07/20/24 23:03 Temperature Temperature Source Pulse Rate 73 Respiratory Rate 23 H Respiratory Effort Normal Non-Labored Respiratory Depth Normal Respiratory Pattern Normal Blood Pressure 142/100 H Blood Pressure Mean 114 Pulse Ox 94 Oxygen Delivery Method Room Air Weight Weight: 138 lb Body Mass Index (BMI) 23.6 Physical Exam Const alert and oriented x3 Constitutional Narrative: Mild distress noted. General Appearance: cooperative HEENT normocephalic, head/scalp atraumatic, hearing grossly normal bilaterally and moist oral mucous membranes Eyes PERRL, EOMs intact bilaterally and conjunctivae normal Neck no lymphadenopathy, supple and no JVD Resp Resp Narrative: Diminished breath sounds throughout. Cardio regular rate and regular rhythm GI soft to palpation GI Narrative: Patient TTP over epigastrium but soft and nondistended with no guarding or rebound. Extremity normal to inspection, full ROM and no clubbing, cyanosis or edema Skin Skin Narrative: Patient has no evidence of rash, abscess, wounds or jaundice. Neuro oriented x3, CN's II-XII intact bilaterally, moves all extremities and no focal motor deficits Sensorium / Orientation: awake, alert, oriented to person, oriented to place andoriented to time Speech: speech normal Psych affect normal Results Medical Records Data Attestation: I reviewed the patient's medical records Lab / Micro Data Attestation: I reviewed the patient's lab results. 07/20/24 19:26 07/20/24 19:26 Labs: Laboratory Results - last 24 hr 07/20/24 19:26: WBC 14.3 H, RBC 4.11 L, Hgb 13.2, Hct 40.2, MCV 97.8, MCH 32.1 H, MCHC 32.8, RDW Std Deviation 51.0 H, RDW Coeff of Damon 14.1, Plt Count 303, MPV10.3, Immature Gran % (Auto) 1.000 H, Neut % (Auto) 94.7 H, Lymph % (Auto) 2.7 L, [place] % (Auto) 1.5, Eos % (Auto) 0.0, Baso % (Auto) 0.1, Absolute Neuts (auto) 13.6 H, Absolute Lymphs (auto) 0.38 L, Nucleated RBC % 0, D-Dimer Quant (PE/DVT)1.06 H*, Sodium 135, Potassium 4.4, Chloride 104, Carbon Dioxide 19.0 L, Anion Gap 13, BUN 19, Creatinine 0.88, Estim Creat Clear Calc 70.45, Est GFR (MDRD) Non-Af 83, BUN/Creatinine Ratio 21.8 H, Glucose 171 H, Calcium 9.3, Total Bilirubin 0.61, Direct Bilirubin 0.29, AST 26, ALT 34, Alkaline Phosphatase 116 H, Troponin T High Sens 27 H, NT pro BNP II 6468 H, Total Protein 6.8, Albumin 4.3, Globulin 2.5, Albumin/Globulin Ratio 1.7, Lipase 32 07/20/24 20:05: Urine Color Straw, Urine Clarity Clear, Urine pH 6.0, Ur Specific [place] 1.020, Urine Protein 100 H, Urine Glucose (UA) Normal, Urine Ketones Negative, Urine Occult Blood 25 H, Urine Nitrite Negative, Urine Bilirubin Negative, Urine Urobilinogen Normal, Ur Leukocyte Esterase Negative, Urine RBC 0-5 SEEN, Urine WBC 0 SEEN, Ur Squamous Epith Cells 5-10 SEEN, Urine Bacteria 2+, Hyaline Casts 5-10 SEEN, Urine Mucus 1+, Urine Test Negative 07/20/24 22:30: Troponin T Hi Sens 2 Hr 36 H Imaging Radiology Impression Chest X-Ray 07/20/24 20:06 IMPRESSION: No Acute Findings. Reading [email or web address] [place]Pelvis CT 07/20/24 21:15 IMPRESSION: 1. No acute findings in the abdomen and pelvis. 2. Mild hepatomegaly with heterogenous hepatic attenuation. 3. Small abdominopelvic ascites. Reading Location: [email or web address] [place] Chest CTA 07/20/24 21:15 IMPRESSION: 1. No evidence of pulmonary embolism. 2. Diffuse interlobular septal thickening, scattered ground-glass opacities and bilateral pleural effusions, concerning for pulmonary edema. 3. Cardiomegaly, with trace pericardial effusion. 4. Contrast reflux into the hepatic veins suggestive of right heart dysfunction. Reading Location: [facility] Assessment & Plan Assessment/Plan (1) Heart failure of unknown etiology: (2) Hypertrophic cardiomyopathy: (3) ICD (implantable cardioverter-defibrillator) in place: (4) Pacemaker: (5) Elevated troponin: (6) Leukocytosis: QUALIFIERS: Leukocytosis type: unspecified Qualified Code(s): D72.829 - Elevated white blood cell count, unspecified (7) Abdominal pain: QUALIFIERS: Abdominal location: unspecified location Qualified Code(s): R10.9 - Unspecified abdominal pain (8) Nausea & vomiting: QUALIFIERS: Vomiting type: unspecified Qualified Code(s): R11.2 -Nausea with vomiting, unspecified PLAN: Plan 1. AE of CHF; of uncertain type with elevated NT pro-BNP II of 6,468 pg/mL present on admission and CT evidence of pulmonary vascular congestion with an episode of Near Syncope in the setting of previously known Hypertrophic Cardiomyopathy; s/p PPM/AICD (2017) - Admit to PCU. Continue IV furosemide begun in the ER and check daily NT pro-BNP II daily to follow trend. Check echocardiogram to evaluate LVEF. Finally, we will consult [facility] to see this patient on rounds in the AM for further recommendations with help appreciated in advance. 2. Mildly elevated troponin T of 27 ng/L present on admission suspected to be due to Acute Cardiac Strain due to #1 - Serialize troponin. Give ECASA. 3. Leukocytosis of 14.3K with Left-shift of 1% present on admission complicating #1 & #2 with possible superimposed Pneumonia; possibly due to aspiration after recent emesis given negative UA, CT abdomen and pelvis and no wounds - Start empiric IV ceftriaxone plus IV metronidazole and check culture and sensitivity data. Give acetaminophen prn [id number] (level 1-5/10) pain or fever. Give low-dose hydromorphone IV prn for severe (level 6-10/10) pain. 4. Abdominal Pain made worse after recent colonoscopy with Nausea and Vomiting compounding #1 - #[address] scan of the abdomen and pelvis this admission in the setting of known IBS and GERD; with hiatal hernia - Continue pantoprazole and sucralfate as before. Give ondansetron IV prn nausea and vomiting. Give promethazine IM prn for breakthrough nausea. 5. History of PE; not currently on current anticoagulation with elevated d-dimer of 1.06 present on admission - CTA of chest with IV contrast negative for PE. Check LE Doppler to evaluate for recurrent DVT. 6. Former tobacco abuse (quit ~6 months ago) - Noted. 7. History of asthma; on prn albuterol - Stable with no current evidence of acute flare. Give nebulizers prn. 8. History of PTX - Noted with no evidence of recurrence at this time. 9. History of endometrial cancer - Noted. 10. History of ovarian cancer; s/p Left oophorectomy - Noted. 11. History of cervical polypectomy - Noted. 12. History of breast cancer; s/p Left mastectomy - Noted with patient currently in remission. 13. History of cholecystectomy - Noted. 14. History of appendectomy - Noted. 15. History of migraine headaches - Noted with no complaints related to this issue at this time. 16. Generalized anxiety; on alprazolam BID - Current therapy to continue. 17. Chronic insomnia; on zolpidem - Resume zolpidem q. HS as before. 18. DVT prophylaxis - Enoxaparin 40 mg sq daily. Total time: Approximately (but not less than) 75 minutes. Charges/Coding Visit Charges Inpatient E&M: 10891 Init Hosp L3 07/21/24 0628 <Electronically signed by Sergio Umaña DO> Cosigner Signature (if applicable): CC: Dr. Sergio Umaña DO; Dr. Dex Sutherland MD~ Signed [facility] Work Phone: [phone] History and physical note [facility] Medical Records Department [address] [place] [address] H&P Exam - Hospitalist 07/20/24 2322 MR#: [id number] Acct: [id number] Name: MICHELLE MITCHELL Rep #:[id number] : 1980 43 From: Sergio Giles DO PCP: Dr. Dex Sutherland MD Status:A DM IN Location: [place] [address] HPI - General General Date of Admission: 07/21/24 Date of Service: 07/20/24 Chief Complaint: SOB and Near Syncope. HPI Narrative MICHELLE MITCHELL, is a 43 F with a past medical history of former tobacco abuse (quit ~6 months ago), hypertrophic cardiomyopathy; s/p PPM/AICD (2016), history of asthma; on prn albuterol, history of PTX, history of PE; not currently on current anticoagulation, history of endometrial cancer, historyof ovarian cancer; s/p Left oophorectomy, history of cervical polypectomy, history of breast cancer; s/p Left mastectomy, history of cholecystectomy, history of appendectomy, IBS, GERD with hiatal hernia; on pantoprazole and sucralfate, history of migraine headaches, generalized anxiety; on alprazolam BID, chronic insomnia; on zolpidem and history of recent colonoscopy ~8 days ago who presentsto [facility] ER complaining of shortness of breath and near syncope. Ms. Mitchell reports her symptoms began approximately 3 weeks ago on Tuesday, July 01, 2024 with diffuse, generalized abdominal pain that was constant and moderate - but was made acutely wore after her recent colonoscopy culminating in her turning blue and almost passing out just prior to arrival so she decided to come in for further evaluation and treatment. She also admitsto nausea with one episode of bilious emesis prior to coming in that was relieved with ondansetron. She denies associated chest pain, unilateral leg swelling, HRT, chemotherapy within the past 6 months, palpitations, heart racing, fever, chills, cough, dysuria, hematuria, headache or rash. In the ER she was noted to have an elevated NT pro-BNP II of 6,468 pg/mL with an elevated d-dimer of 1.06 present on admission so she then underwent a CTA of the chest with IV contrast to revealed no evidence of pulmonary embolism with diffuse interlobular septal thickening with scattered ground-glass opacities and bilateral pleural effusions concerning for pulmonary edema with cardiomegaly, trace pericardial effusion and reflux of contrast into the hepatic veins suggestive of Right heart dysfunction consistent with AEof CHF; of uncertain type with mildly elevated troponin T of 27 ng/L present on admission suspectedto be due to Acute Cardiac Strain complicated by Leukocytosis of 14.3K with Left- shift of 1% present on admission with a UA negative for infection and a CT scan of the abdomen and pelvis that revealed no acute findings in the abdomen and pelvis with mild hepatomegaly with heterogenous hepatic attenuation with small abdominopelvic ascites. She was then admitted to the PCU for ongoing carefor a stay that is expected to extend beyond 2 midnights. [facility] Medical History (Updated 07/21/24 @ 01:[address] 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 Ovarian cancer GERD (gastroesophageal reflux disease) Insomnia Anxiety Collapsed lung History of blood clots Asthma Breast cancer Pacemaker ICD (implantable cardioverter-defibrillator) in place Hypertrophic cardiomyopathy Home Medications ?Medication ?Instructions ?Recorded ?Last Taken ?Type alprazolam 0.5 mg tablet 0.5 mg PO BID 11/13/2107/11 History zolpidem 10 mg tablet 10 mg PO QHS 11/13/21 History albuterol sulfate 90 mcg/actuation 1 inh inhalation NJ N 07/26/23 Unknown History aerosol inhaler dicyclomine 20 mg tablet 20 mg PO TID PRN abdominal p ain 07/03/24 Unknown Rx #30 tabs pantoprazole 20 mg tablet,delayed 20 mg PO BID 5 07/11/24 History release sucralfate 1 gram tablet (Carafate) 1 g PO BIDCM 07/1007/11/24 History prednisone 20 mg tablet 40 mg PO Q12H 07/20/24 Unkno wn History Allergy/AdvReac Type Severity Reaction Status Date / Time morphine Allergy Mild Hives Verified 07/20/24 19:03 codeine Allergy Hives Verified 07/20/24 19:03 erythromycin base Allergy PT UNSURE Verified 07/20/24 19:03 OF REACTION Fish Containing Products Allergy Other Verified 07/20/24 19:03 levofloxacin Allergy PT UNSURE Verified 07/20/24 19:03 OF REACTION shellfish derived Allergy Other Verified 07/20/24 19:03 tramadol Allergy Hives Verified 07/20/24 19:03 trimethobenzamide (From Allergy Other Verified 07/20/24 19:03 Tigan) gabapentin (From Neurontin) AdvReac Severe Anaphylaxis Verified 07/20/24 19:03 acetaminophen (From Vicodin) AdvReac Other Verified 07/20/24 19:03 hydrocodone (From Vicodin) AdvReac Other Verified 07/20/24 19:03 metoclopramide (From Reglan) AdvReac Other Verified 07/20/24 19:03 Family History Father Heart disease Idiopathic hypertrophic subaortic stenosis, hypertrophic obstructive cardiomyopathy, congestive heart failure Mother Breast cancer DVT (deep venous thrombosis) Sister Hypertrophic obstructive cardiomyopathy heart transplant at age 34 Cancer Brain, breast, and colon Grandfather Heart disease at age 45 Grandmother CVA (cerebral vascular accident) age 43 Surgical History History of cardiac catheterization History of oophorectomy History of cervical polypectomy History of colonoscopy History of tubal ligation History of mastectomy History of cholecystectomy Hx of appendectomy Social History household members: spouse and family housing: house current occupational status: employed Smoking Status: Current every day smoker tobacco type: cigarettes how long ago did patient quit smokin months ago alcohol intake: former substance use type: does not use caffeine: Yes ROS ROS Narrative Review of Systems: Constitutional: Patient denies fever or chills. Eyes: Patient denies changes in vision or discharge from eyes. ENT: Patient denies runny nose, sore throat or ear pain. Resp: Patient admits to SOB and turning blue as per HPI. She denies cough. CV: Patient denies chest pain, palpitations or heart racing. GI: Patient admits to diffuse, generalized abdominal pain made worse after recent colonoscopy with nausea and bilious emesis x 1 earlier today as per HPI. : Patient denies dysuria or hematuria. MSK: Patient denies arthralgias or myalgias. Skin: Patient denies rash, abscess, wounds or jaundice. Psych: Patient denies symptoms of uncontrolled depression or anxiety. Neuro: Patient denies headache, paresthesias or focal neurologic deficits. Allergy: Patient denies lip swelling, tongue swelling ur urticaria. Hematology: Patient denies easy bleeding or easy bruisability. Endocrinology: Patient denies polyuria, polydipsia, polyphagia or heat/cold intolerance. 14 point ROS otherwise negative except for positives noted above by HPI. Vital Signs Vital Signs Vital Signs: 07/20/24 18:57 07/20/24 21:00 07/20/24 21:00 Temperature 97.6 F L 98.3 F Temperature Source Temporal Oral Pulse Rate 88 74 75 Respiratory Rate 22 H 20 H 21 H Respiratory Effort Respiratory Depth Respiratory Pattern Blood Pressure 146/101 H 149/90 H 149/90 H Blood Pressure Mean 116 109 109 Pulse Ox 98 98 100 Oxygen Delivery Method Room Air Room Air 07/20/24 23:00 07/20/24 23:03 Temperature Temperature Source Pulse Rate 73 Respiratory Rate 23 H Respiratory Effort Normal Non-Labored Respiratory Depth Normal Respiratory Pattern Normal Blood Pressure 142/100 H Blood Pressure Mean 114 Pulse Ox 94 Oxygen Delivery Method Room Air Weight Weight: 138 lb Body Mass Index (BMI) 23.6 Physical Exam Const alert and oriented x3 Constitutional Narrative: Mild distress noted. General Appearance: cooperative HEENT normocephalic, head/scalp atraumatic, hearing grossly normal bilaterally and moist oral mucous membranes Eyes PERRL, EOMs intact bilaterally and conjunctivae normal Neck no lymphadenopathy, supple and no JVD Resp Resp Narrative: Diminished breath sounds throughout. Cardio regular rate and regular rhythm GI soft to palpation GI Narrative: Patient TTP over epigastrium but soft and nondistended with no guarding or rebound. Extremity normal to inspection, full ROM and no clubbing, cyanosis or edema Skin Skin Narrative: Patient has no evidence of rash, abscess, wounds or jaundice. Neuro oriented x3, CN's II-XII intact bilaterally, moves all extremities and no focal motor deficits Sensorium / Orientation: awake, alert, oriented to person, oriented to place andoriented to time Speech: speech normal Psych affect normal Results Medical Records Data Attestation: I reviewed the patient's medical records Lab / Micro Data Attestation: I reviewed the patient's lab results. 07/20/24 19:26 07/20/24 19:26 Labs: Laboratory Results - last 24 hr 07/20/24 19:26: WBC 14.3 H, RBC 4.11 L, Hgb 13.2, Hct 40.2, MCV 97.8, MCH 32.1 H, MCHC 32.8, RDW Std Deviation 51.0 H, RDW Coeff of Damon 14.1, Plt Count 303, MPV10.3, Immature Gran % (Auto) 1.000 H, Neut % (Auto) 94.7 H, Lymph % (Auto) 2.7 L, [place] % (Auto) 1.5, Eos % (Auto) 0.0, Baso % (Auto) 0.1, Absolute Neuts (auto) 13.6 H, Absolute Lymphs (auto) 0.38 L, Nucleated RBC % 0, D-Dimer Quant (PE/DVT)1.06 H*, Sodium 135, Potassium 4.4, Chloride 104, Carbon Dioxide 19.0 L, Anion Gap 13, BUN 19, Creatinine 0.88, Estim Creat Clear Calc 70.45, Est GFR (MDRD) Non-Af 83, BUN/Creatinine Ratio 21.8 H, Glucose 171 H, Calcium 9.3, Total Bilirubin 0.61, Direct Bilirubin 0.29, AST 26, ALT 34, Alkaline Phosphatase 116 H, Troponin T High Sens 27 H, NT pro BNP II 6468 H, Total Protein 6.8, Albumin 4.3, Globulin 2.5, Albumin/Globulin Ratio 1.7, Lipase 32 07/20/24 20:05: Urine Color Straw, Urine Clarity Clear, Urine pH 6.0, Ur Specific [place] 1.020, Urine Protein 100 H, Urine Glucose (UA) Normal, Urine Ketones Negative, Urine Occult Blood 25 H, UrineNitrite Negative, Urine Bilirubin Negative, Urine Urobilinogen Normal, Ur Leukocyte Esterase Negative, Urine RBC 0-5 SEEN, Urine WBC 0 SEEN, Ur Squamous Epith Cells 5-10 SEEN, Urine Bacteria 2+, Hyaline Casts 5-10 SEEN, Urine Mucus 1+, Urine Test Negative 07/20/24 22:30: Troponin T Hi Sens 2 Hr 36 H Imaging Radiology Impression Chest X-Ray 07/20/24 20:06 IMPRESSION: No Acute Findings. Reading [facility]Pelvis CT 07/20/24 21:15 IMPRESSION: 1. No acute findings in the abdomen and pelvis. 2. Mild hepatomegaly with heterogenous hepatic attenuation. 3. Small abdominopelvic ascites. Reading [facility] Chest CTA 07/20/24 21:15 IMPRESSION: 1. No evidence of pulmonary embolism. 2. Diffuse interlobular septal thickening, scattered ground-glass opacities and bilateral pleural effusions, concerning for pulmonary edema. 3. Cardiomegaly, with trace pericardial effusion. 4. Contrast reflux into the hepatic veins suggestive of right heart dysfunction. Reading [facility] Assessment & Plan Assessment/Plan (1) Heart failure of unknown etiology: (2) Hypertrophic cardiomyopathy: (3) ICD (implantable cardioverter-defibrillator) in place: (4) Pacemaker: (5) Elevated troponin: (6) Leukocytosis: QUALIFIERS: Leukocytosis type: unspecified Qualified Code(s): D72.829 - Elevated white blood cell count, unspecified (7) Abdominal pain: QUALIFIERS: Abdominal location: unspecified location Qualified Code(s): R10.9 - Unspecified abdominal pain (8) Nausea & vomiting: QUALIFIERS: Vomiting type: unspecified Qualified Code(s): R11.2 -Nausea with vomiting, unspecified PLAN: Plan 1. AE of CHF; of uncertain type with elevated NT pro-BNP II of 6,468 pg/mL present on admission andCT evidence of pulmonary vascular congestion with an episode of Near Syncope in the setting of previously known Hypertrophic Cardiomyopathy; s/p PPM/AICD (2017) - Admit to PCU. Continue IV furosemidebegun in the ER and check daily NT pro-BNP II daily to follow trend. Check echocardiogram to evaluate LVEF. Finally, we will consult [facility] to see this patient on rounds in the AM for further recommendations with help appreciated in advance. 2. Mildly elevated troponin T of 27 ng/L present on admission suspected to be due to Acute Cardiac Strain due to #1 - Serialize troponin. Give ECASA. 3. Leukocytosis of 14.3K with Left-shift of 1% present on admission complicating #1 & #2 with possible superimposed Pneumonia; possibly due to aspiration after recent emesis given negative UA, CTabdomen and pelvis and no wounds - Start empiric IV ceftriaxone plus IV metronidazole and check culture and sensitivity data. Give acetaminophen prn [id number] (level 1-5/10) pain or fever. Give low-dose hydromorphone IV prn for severe (level 6-10/10) pain. 4. Abdominal Pain made worse after recent colonoscopy with Nausea and Vomiting compounding #1 - #[address] scan of the abdomen and pelvis this admission in the setting of known IBS and GERD; with hiatal hernia - Continue pantoprazole and sucralfate as before. Give ondansetron IV prn nausea and vomiting. Give promethazine IM prn for breakthrough nausea. 5. History of PE; not currently on current anticoagulation with elevated d-dimer of 1.06 present onadmission - CTA of chest with IV contrast negative for PE. Check LE Doppler to evaluate for recurrent DVT. 6. Former tobacco abuse (quit ~6 months ago) - Noted. 7. History of asthma; on prn albuterol - Stable with no current evidence of acute flare. Give nebulizers prn. 8. History of PTX - Noted with no evidence of recurrence at this time. 9. History of endometrial cancer - Noted. 10. History of ovarian cancer; s/p Left oophorectomy - Noted. 11. History of cervical polypectomy - Noted. 12. History of breast cancer; s/p Left mastectomy - Noted with patient currently in remission. 13. History of cholecystectomy - Noted. 14. History of appendectomy - Noted. 15. History of migraine headaches - Noted with no complaints related to this issue at this time. 16. Generalized anxiety; on alprazolam BID - Current therapy to continue. 17. Chronic insomnia; on zolpidem - Resume zolpidem q. HS as before. 18. DVT prophylaxis - Enoxaparin 40 mg sq daily. Total time: Approximately (but not less than) 75 minutes. Charges/Coding Visit Charges Inpatient E&M: 30551 Init Hosp L3 07/21/24 0628 Cosigner Signature (if applicable): CC: Dr. Sergio Umaña DO; Dr. Dex Sutherland MD~ Signed [facility]05-10-2025 Discharge summary Author Carlos Nair [facility] Note Date/Time July 20, 2024 11:28p [facility] Medical Records Department [address] [place] [address] Emergency Department Summary 07/20/24 MR#: [id number] Acct: [id number] Name: MICHELLE MITCHELL Rep #:[id number] : 1980 43 From: Carlos Jama PCP: Dr. Dex Sutherland MD Status:R ER Location: ED HPI History of Present Illness Chief Complaint: Shortness of Breath [employer] [facility] Medical History Cancer History of steroid therapy Easy bruising Migraine headache History of hiatal hernia History of ulceration History of IBS Abdominal bloating Stomach pain Nausea & vomiting Shortness of breath on exertion Smoker History of echocardiogram Chest pain Pulmonary embolism Endometrial cancer Cervical cancer [facility] current use of 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 Ovarian cancer GERD (gastroesophageal reflux disease) Insomnia Anxiety Collapsed lung History of blood clots Asthma Breast cancer Pacemaker ICD (implantable cardioverter-defibrillator) in place Hypertrophic cardiomyopathy Home Medications ?Medication ?Instructions ?Recorded ?Last Taken ?Type alprazolam 0.5 mg tablet 0.5 mg PO BID 11/13/2107/11 History zolpidem 10 mg tablet 10 mg PO QHS 11/13/21 History albuterol sulfate 90 mcg/actuation 1 inh inhalation NJ N 07/26/23 Unknown History aerosol inhaler oxycodone-acetaminophen 5 mg-325 1 tab PO Q6H PRN pain 3 days #12 07/01/24 Unknown Rx mg tablet (Endocet) tabs dicyclomine 20 mg tablet 20 mg PO TID PRN abdominal p ain 07/03/24 Unknown Rx #30 tabs ketorolac 10 mg tablet 10 mg PO Q8H PRN pain #15 ta bs 07/03/24 Unknown Rx pantoprazole 20 mg tablet,delayed 20 mg PO BID 5 07/11/24 History release sucralfate 1 gram tablet (Carafate) 1 g PO DAILY 07/1007/11/24 History Allergy/AdvReac Type Severity Reaction Status Date / Time morphine Allergy Mild Hives Verified 07/20/24 19:03 codeine Allergy Hives Verified 07/20/24 19:03 erythromycin base Allergy PT UNSURE Verified 07/20/24 19:03 OF REACTION Fish Containing Products Allergy Other Verified 07/20/24 19:03 levofloxacin Allergy PT UNSURE Verified 07/20/24 19:03 OF REACTION shellfish derived Allergy Other Verified 07/20/24 19:03 tramadol Allergy Hives Verified 07/20/24 19:03 trimethobenzamide (From Allergy Other Verified 07/20/24 19:03 Tigan) gabapentin (From Neurontin) AdvReac Severe Anaphylaxis Verified 07/20/24 19:03 acetaminophen (From Vicodin) AdvReac Other Verified 07/20/24 19:03 hydrocodone (From Vicodin) AdvReac Other Verified 07/20/24 19:03 metoclopramide (From Reglan) AdvReac Other Verified 07/20/24 19:03 Family History Father Heart disease Idiopathic hypertrophic subaortic stenosis, hypertrophic obstructive cardiomyopathy, congestive heart failure Mother Breast cancer DVT (deep venous thrombosis) Sister Hypertrophic obstructive cardiomyopathy heart transplant at age 34 Cancer Brain, breast, and colon Grandfather Heart disease at age 45 Grandmother CVA (cerebral vascular accident) age 43 Surgical History History of cardiac catheterization History of oophorectomy History of cervical polypectomy History of colonoscopy History of tubal ligation History of mastectomy History of cholecystectomy Hx of appendectomy Social History household members: spouse and family housing: house current occupational status: employed Smoking Status: Current every day smoker tobacco type: cigarettes how long ago did patient quit smokin months ago alcohol intake: former substance use type: does not use caffeine: Yes EXAM Physical Exam Const Vital Signs: 07/20/24 18:57 07/20/24 21:00 07/20/24 21:00 Temperature 97.6 F L 98.3 F Temperature Source Temporal Oral Pulse Rate 88 74 75 Respiratory Rate 22 H 20 H 21 H Blood Pressure 146/101 H 149/90 H 149/90 H Blood Pressure Mean 116 109 109 Pulse Ox 98 98 100 Oxygen Delivery Method Room Air Room Air MDM MDM MDM Narrative Medical decision making narrative: HISTORY OF PRESENT ILLNESS: Chief complaint: Shortness of breath, abdominal pain 43-year-old female history of asthma, GERD, hypertrophic cardiomyopathy, status post ICD presents abdominal pain following a colonoscopy 8 days ago. She statesabdominal pain is diffuse located in the epigastrium. It has been going on since . Has been constant. Has not been worse since colonoscopy but she states it is worse this evening and she had an episode of turning blue and almost passing out she presents to the ED. She notes 1 episode of nonbloody nonbilious vomitus prior to arrival that was relieved with Zofran. Denies constipation or diarrhea. Denies melena hematochezia. Denies vaginal bleeding or discharge. Denies trouble urinating. In terms of near syncope patient denies chest pain. Notes shortness of breath. Notes history of PE but denies being on blood thinners. Denies unilateral leg swelling, estrogen use, hemoptysis. Denies malignancy with treatment within the last 6 months. Patientdenies cough fever or chills. Patient denies REVIEW OF SYSTEMS: Pertinent positives: Shortness of breath, abdominal pain Pertinent negatives: Fever PHYSICAL EXAM: Nursing triage notes reviewed, Vital signs reviewed Constitutional: please see mdm HENT: MMM Eyes: Pupils equal round and reactive to light, Extraocular muscles intact Neck: No stridor, no JVD, full neck ROM Lungs: Clear to auscultation, No wheezing or rales. No increased work of breathing, no conversational dyspnea, no accessory muscle use, no nasal flaring. No respiratory distress noted Heart: Regular rate and rhythm, No murmurs, No rubs and No gallops, 2+ distal pulses (radial, femoral, posterior tibial) in all extremities Abdomen: Soft, epigastric TTP but no rigidity, rebound or guarding, no obvious peritoneal signs, no palpable pulsatile abdominal masses, no auscultated abdominal bruit : No CVAT Extremities: No edema Neuro: No new focal neurological deficits, cranial nerves II through XII intact,5/5 strength in all present extremities. Intact sensation to light touch in all present extremities, 2+ reflexes bilateral patella tendons. Skin: No rash or lesions noted MEDICAL DECISION MAKING: Chief Complaint: please see HPI External records reviewed: Reviewed echocardiogram from 2023 shows ejection fraction 50%. Stage I diastolic dysfunction Factors affecting care: none Social determinants of health: none History obtained from others: none Consults: Dr. Torrez (internal medicine) [facility] Narrative: Patient was initially tachypneic otherwise afebrile and nontoxic-appearing. Saturating 98% on room air exam I considered the following differential diagnosis: Perforation, pneumonia, anemia, electrolyte disturbance, ACS, arrhythmia, PE. AAA, small bowel obstruction, abdominal perforation, appendicitis, pancreatitis, hepatobiliary pathology (acute cholecystitis), mesenteric ischemia, pathology (ie nephrolithiasis, pyelonephritis). Initially treated the patient with 1 L IV fluid, Zofran and Toradol for initial pain control. I was comfortable treating with NSAID patient was she has had a tubal ligation and oophorectomy in the past. ALL IMAGES (IF OBTAINED) HAVE BEEN PERSONALLY REVIEWED AND INTERPRETED BY MYSELF. EKG with normal sinus rhythm rate 76, left axis deviation, no stemi, no sign of right heart strain, no S1 Q3 T3 Initial troponin indeterminate, delta Trope rules and per high-sensitivity troponin protocol. D-dimer elevated consistent with increased clot breakdown concerning for VTE given patient reported shortness of breath and near syncope CBC with leukocytosis suggestive of systemic inflammation, no anemia or thrombocytopenia noted BMP without significant Pat abnormalities, no sign of RADHA, LFTs within normal limits BNP elevated consistent with volume overload Lipase is wnl indicating no pancreatic inflammation. CTA of the chest was noted to be partial with evidence of CHF and cardiomegaly CT scan of the abdomen pelvis shows no evidence of acute intra-abdominal The synthesis of the patient's history, physical exam, labs images suggest likely CHF exacerbation given elevated BNP. This is likely causing her high since her troponin values to rule in based on her protocol. Will give diuresis in the form of IV Lasix. Will admit the patient for close KISHA monitoring, cardiology consultation and further evaluation. Discussed with hospitalist Dr. Torrez who accepted the patient's case to the PCU as a full admission. The patient and/or family, caregivers express understanding. The patient and/orfamily, caregivers agrees with the plan. Shared decision making: I will have a discussion with the patient and or visitors regarding risk/benefits of further testing or admission. They will be made aware of of the risk/benefits inherent in this decision they will be given the opportunity to voice understanding. Total critical care time today provided was at least 0 minutes. This excludes separately billable procedures. Critical care time (if documented) is secondary to the patient having high probability of clinically significant/life threatening deterioration in the patient's condition which required my urgent intervention. Impression: 1. Acute abdominal pain 2. Dyspnea 3. Near syncope 4. CHF exacerbation Dispo: Admit to PCU This note was generated with [employer] dictation software. It may contain incorrectwords, spelling, and punctuation that were not noted in review of the chart prior to signing. Lab Data Labs: Laboratory Results - last 24 hr 07/20/24 07/20/24 19:26 20:05 WBC 14.3 H RBC 4.11 L Hgb 13.2 Hct 40.2 MCV 97.8 MCH 32.1 H MCHC 32.8 RDW Std Deviation 51.0 H RDW Coeff of Damon 14.1 Plt Count 303 MPV 10.3 Immature Gran % (Auto) 1.000 H Neut % (Auto) 94.7 H Lymph % (Auto) 2.7 L [place] % (Auto) 1.5 Eos % (Auto) 0.0 Baso % (Auto) 0.1 Absolute Neuts (auto) 13.6 H Absolute Lymphs (auto) 0.38 L Nucleated RBC % 0 D-Dimer Quant (PE/DVT) 1.06 H* Sodium 135 Potassium 4.4 Chloride 104 Carbon Dioxide 19.0 L Anion Gap 13 BUN 19 Creatinine 0.88 Estim Creat Clear Calc 70.45 Est GFR (MDRD) Non-Af 83 BUN/Creatinine Ratio 21.8 H Glucose 171 H Calcium 9.3 Total Bilirubin 0.61 Direct Bilirubin 0.29 AST 26 ALT 34 Alkaline Phosphatase 116 H Troponin T High Sens 27 H NT pro BNP II 6468 H Total Protein 6.8 Albumin 4.3 Globulin 2.5 Albumin/Globulin Ratio 1.7 Lipase 32 Urine Color Straw Urine Clarity Clear Urine pH 6.0 Ur Specific [place] 1.020 Urine Protein 100 H Urine Glucose (UA) Normal Urine Ketones Negative Urine Occult Blood 25 H Urine Nitrite Negative Urine Bilirubin Negative Urine Urobilinogen Normal Ur Leukocyte Esterase Negative Urine RBC 0-5 SEEN Urine WBC 0 SEEN Ur Squamous Epith Cells 5-10 SEEN Urine Bacteria 2+ Hyaline Casts 5-10 SEEN Urine Mucus 1+ Urine Test Negative Radiography Diagnostic Testing: Clinical Impression(s) from Imaging Studies Chest X-Ray 07/20/24 20:06 IMPRESSION: No Acute Findings. Reading Location: [facility] Chest CTA 07/20/24 21:15 IMPRESSION: 1. No evidence of pulmonary embolism. 2. Diffuse interlobular septal thickening, scattered ground-glass opacities and bilateral pleural effusions, concerning for pulmonary edema. 3. Cardiomegaly, with trace pericardial effusion. 4. Contrast reflux into the hepatic veins suggestive of right heart dysfunction. Reading Location: [facility] Discharge Plan Triage Chief Complaint: Shortness of Breath ED Provider: Carlos Nair Dx/Rx/DC Orders Prescriptions: No Action albuterol sulfate 90 mcg/actuation HFA aerosol inhaler 1 inh inhalation PRN alprazolam 0.5 mg tablet 0.5 mg PO BID Patient Comments: TAKE 1 TABLET BY MOUTH TWICE DAILY zolpidem 10 mg tablet 10 mg PO QHS oxycodone-acetaminophen [Endocet] 5-325 mg tablet 1 tab PO Q6H PRN (Reason: pain) 3 Days Qty: 12 0RF ketorolac 10 mg tablet 10 mg PO Q8H PRN (Reason: pain) Qty: 15 0RF Rx Instructions: maximum total duration of 5 days from all oral, intranasal, or parenteral formulations dicyclomine 20 mg tablet 20 mg PO TID PRN (Reason: abdominal pain) Qty: 30 0RF pantoprazole 20 mg tablet,delayed release (DR/EC) 20 mg PO BID sucralfate [Carafate] 1 gram tablet 1 g PO DAILY Primary Care Provider: Dex Sutherland Referrals: Dex Sutherland MD [Primary Care Provider] - Print Language: Zimbabwean What to do if you have Problems For any increased pain, shortness of breath, bleeding, nausea or vomiting, chestpain, or any unexpected problems, contact your Primary Care Provider. Call [facility] ([phone]) or report to the closest Emergency Room. Call 911 if necessary. 07/20/242327 <Electronically signed by Carlos Nair DO> Cosigner Signature (if applicable): CC: Dr. Dex Sutherland MD ~ Signed [facility] Work Phone: [phone] 514-218905-09-2025 Discharge summary [facility] Medical Records Department [address] [place] [address] Emergency Department Summary 07/20/24 MR#: [id number] Acct: [id number] Name: MICHELLE MITCHELL Rep #:[id number] : 1980 43 From: Carlos Jama PCP: Dr. Dex Sutherland MD Status:R ER Location: ED HPI History of Present Illness Chief Complaint: Shortness of Breath [employer] Medical History Cancer History of steroid therapy Easy bruising Migraine headache History of hiatal hernia History of ulceration History of IBS Abdominal bloating Stomach pain Nausea & vomiting Shortness of breath on exertion Smoker History of echocardiogram Chest pain Pulmonary embolism Endometrial cancer Cervical cancer [facility] current use of 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 Ovarian cancer GERD (gastroesophageal reflux disease) Insomnia Anxiety Collapsed lung History of blood clots Asthma Breast cancer Pacemaker ICD (implantable cardioverter-defibrillator) in place Hypertrophic cardiomyopathy Home Medications ?Medication ?Instructions ?Recorded ?Last Taken ?Type alprazolam 0.5 mg tablet 0.5 mg PO BID 11/13/2107/11 History zolpidem 10 mg tablet 10 mg PO QHS 11/13/21 History albuterol sulfate 90 mcg/actuation 1 inh inhalation NJ N 07/26/23 Unknown History aerosol inhaler oxycodone-acetaminophen 5 mg-325 1 tab PO Q6H PRN pain 3 days #12 07/01/24 Unknown Rx mg tablet (Endocet) tabs dicyclomine 20 mg tablet 20 mg PO TID PRN abdominal p ain 07/03/24 Unknown Rx #30 tabs ketorolac 10 mg tablet 10 mg PO Q8H PRN pain #15 ta bs 07/03/24 Unknown Rx pantoprazole 20 mg tablet,delayed 20 mg PO BID 5 07/11/24 History release sucralfate 1 gram tablet (Carafate) 1 g PO DAILY 07/1007/11/24 History Allergy/AdvReac Type Severity Reaction Status Date / Time morphine Allergy Mild Hives Verified 07/20/24 19:03 codeine Allergy Hives Verified 07/20/24 19:03 erythromycin base Allergy PT UNSURE Verified 07/20/24 19:03 OF REACTION Fish Containing Products Allergy Other Verified 07/20/24 19:03 levofloxacin Allergy PT UNSURE Verified 07/20/24 19:03 OF REACTION shellfish derived Allergy Other Verified 07/20/24 19:03 tramadol Allergy Hives Verified 07/20/24 19:03 trimethobenzamide (From Allergy Other Verified 07/20/24 19:03 Tigan) gabapentin (From Neurontin) AdvReac Severe Anaphylaxis Verified 07/20/24 19:03 acetaminophen (From Vicodin) AdvReac Other Verified 07/20/24 19:03 hydrocodone (From Vicodin) AdvReac Other Verified 07/20/24 19:03 metoclopramide (From Reglan) AdvReac Other Verified 07/20/24 19:03 Family History Father Heart disease Idiopathic hypertrophic subaortic stenosis, hypertrophic obstructive cardiomyopathy, congestive heart failure Mother Breast cancer DVT (deep venous thrombosis) Sister Hypertrophic obstructive cardiomyopathy heart transplant at age 34 Cancer Brain, breast, and colon Grandfather Heart disease at age 45 Grandmother CVA (cerebral vascular accident) age 43 Surgical History History of cardiac catheterization History of oophorectomy History of cervical polypectomy History of colonoscopy History of tubal ligation History of mastectomy History of cholecystectomy Hx of appendectomy Social History household members: spouse and family housing: house current occupational status: employed Smoking Status: Current every day smoker tobacco type: cigarettes how long ago did patient quit smokin months ago alcohol intake: former substance use type: does not use caffeine: Yes EXAM Physical Exam Const Vital Signs: 07/20/24 18:57 07/20/24 21:00 07/20/24 21:00 Temperature 97.6 F L 98.3 F Temperature Source Temporal Oral Pulse Rate 88 74 75 Respiratory Rate 22 H 20 H 21 H Blood Pressure 146/101 H 149/90 H 149/90 H Blood Pressure Mean 116 109 109 Pulse Ox 98 98 100 Oxygen Delivery Method Room Air Room Air MDM MDM MDM Narrative Medical decision making narrative: HISTORY OF PRESENT ILLNESS: Chief complaint: Shortness of breath, abdominal pain 43-year-old female history of asthma, GERD, hypertrophic cardiomyopathy, status post ICD presents abdominal pain following a colonoscopy 8 days ago. She statesabdominal pain is diffuse located in theepigastrium. It has been going on since . Has been constant. Has not been worse since colonoscopy but she states it is worse this evening and she had an episode of turning blue and almost passing out she presents to the ED. She notes 1 episode of nonbloody nonbilious vomitus prior to arrival that was relieved with Zofran. Denies constipation or diarrhea. Denies melena hematochezia. Deniesvaginal bleeding or discharge. Denies trouble urinating. In terms of near syncope patient denies haleigh st pain. Notes shortness of breath. Notes history of PE but denies being on blood thinners. Denies unilateral leg swelling, estrogen use, hemoptysis. Denies malignancy with treatment within the last 6 months. Patientdenies cough fever or chills. Patient denies REVIEW OF SYSTEMS: Pertinent positives: Shortness of breath, abdominal pain Pertinent negatives: Fever PHYSICAL EXAM: Nursing triage notes reviewed, Vital signs reviewed Constitutional: please see mdm HENT: MMM Eyes: Pupils equal round and reactive to light, Extraocular muscles intact Neck: No stridor, no JVD, full neck ROM Lungs: Clear to auscultation, No wheezing or rales. No increased work of breathing, no conversational dyspnea, no accessory muscle use, no nasal flaring. No respiratory distress noted Heart: Regular rate and rhythm, No murmurs, No rubs and No gallops, 2+ distal pulses (radial, femoral, posterior tibial) in all extremities Abdomen: Soft, epigastric TTP but no rigidity, rebound or guarding, no obvious peritoneal signs, nopalpable pulsatile abdominal masses, no auscultated abdominal bruit : No CVAT Extremities: No edema Neuro: No new focal neurological deficits, cranial nerves II through XII intact,5/5 strength in allpresent extremities. Intact sensation to light touch in all present extremities, 2+ reflexes bilateral patella tendons. Skin: No rash or lesions noted MEDICAL DECISION MAKING: Chief Complaint: please see HPI External records reviewed: Reviewed echocardiogram from 2023 shows ejection fraction 50%. Stage I diastolic dysfunction Factors affecting care: none Social determinants of health: none History obtained from others: none Consults: Dr. Torrez (internal medicine) [facility] Narrative: Patient was initially tachypneic otherwise afebrile and nontoxic-appearing. Saturating 98% on room air exam I considered the following differential diagnosis: Perforation, pneumonia, anemia, electrolyte disturbance, ACS, arrhythmia, PE. AAA, small bowel obstruction, abdominal perforation, appendicitis, pancreatitis, hepatobiliary pathology (acute cholecystitis), mesenteric ischemia, pathology (ie nephr olithiasis, pyelonephritis). Initially treated the patient with 1 L IV fluid, Zofran and Toradol for initial pain control. I wascomfortable treating with NSAID patient was she has had a tubal ligation and oophorectomy in the past. ALL IMAGES (IF OBTAINED) HAVE BEEN PERSONALLY REVIEWED AND INTERPRETED BY MYSELF. EKG with normal sinus rhythm rate 76, left axis deviation, no stemi, no sign of right heart strain,no S1 Q3 T3 Initial troponin indeterminate, delta Trope rules and per high-sensitivity troponin protocol. D-dimer elevated consistent with increased clot breakdown concerning for VTE given patient reportedshortness of breath and near syncope CBC with leukocytosis suggestive of systemic inflammation, no anemia or thrombocytopenia noted BMP without significant Pat abnormalities, no sign of RADHA, LFTs within normal limits BNP elevated consistent with volume overload Lipase is wnl indicating no pancreatic inflammation. CTA of the chest was noted to be partial with evidence of CHF and cardiomegaly CT scan of the abdomen pelvis shows no evidence of acute intra-abdominal The synthesis of the patient's history, physical exam, labs images suggest likely CHF exacerbation given elevated BNP. This is likely causing her high since her troponin values to rule in based on her protocol. Will give diuresis in the form of IV Lasix. Will admit the patient for close KISHA monitoring, cardiology consultation and further evaluation. Discussed with hospitalist Dr. Torrez who accepted the patient's case to the PCU as a full admission. The patient and/or family, caregivers express understanding. The patient and/orfamily, caregivers agrees with the plan. Shared decision making: I will have a discussion with the patient and or visitors regarding risk/benefits of further testing or admission. They will be made aware of of the risk/benefits inherent in this decision they will be given the opportunity to voice understanding. Total critical care time today provided was at least 0 minutes. This excludes separately billable procedures. Critical care time (if documented) is secondary to the patient having high probability ofclinically significant/life threatening deterioration in the patient's condition which required my urgent intervention. Impression: 1. Acute abdominal pain 2. Dyspnea 3. Near syncope 4. CHF exacerbation Dispo: Admit to PCU This note was generated with [employer] dictation software. It may contain incorrectwords, spelling, and punctuation that were not noted in review of the chart prior to signing. Lab Data Labs: Laboratory Results - last 24 hr 07/20/24 07/20/24 19:26 20:05 WBC 14.3 H RBC 4.11 L Hgb 13.2 Hct 40.2 MCV 97.8 MCH 32.1 H MCHC 32.8 RDW Std Deviation 51.0 H RDW Coeff of Damon 14.1 Plt Count 303 MPV 10.3 Immature Gran % (Auto) 1.000 H Neut % (Auto) 94.7 H Lymph % (Auto) 2.7 L [place] % (Auto) 1.5 Eos % (Auto) 0.0 Baso % (Auto) 0.1 Absolute Neuts (auto) 13.6 H Absolute Lymphs (auto) 0.38 L Nucleated RBC % 0 D-Dimer Quant (PE/DVT) 1.06 H* Sodium 135 Potassium 4.4 Chloride 104 Carbon Dioxide 19.0 L Anion Gap 13 BUN 19 Creatinine 0.88 Estim Creat Clear Calc 70.45 Est GFR (MDRD) Non-Af 83 BUN/Creatinine Ratio 21.8 H Glucose 171 H Calcium 9.3 Total Bilirubin 0.61 Direct Bilirubin 0.29 AST 26 ALT 34 Alkaline Phosphatase 116 H Troponin T High Sens 27 H NT pro BNP II 6468 H Total Protein 6.8 Albumin 4.3 Globulin 2.5 Albumin/Globulin Ratio 1.7 Lipase 32 Urine Color Straw Urine Clarity Clear Urine pH 6.0 Ur Specific [place] 1.020 Urine Protein 100 H Urine Glucose (UA) Normal Urine Ketones Negative Urine Occult Blood 25 H Urine Nitrite Negative Urine Bilirubin Negative Urine Urobilinogen Normal Ur Leukocyte Esterase Negative Urine RBC 0-5 SEEN Urine WBC 0 SEEN Ur Squamous Epith Cells 5-10 SEEN Urine Bacteria 2+ Hyaline Casts 5-10 SEEN Urine Mucus 1+ Urine Test Negative Radiography Diagnostic Testing: Clinical Impression(s) from Imaging Studies Chest X-Ray 07/20/24 20:06 IMPRESSION: No Acute Findings. Reading Location: [facility] Chest CTA 07/20/24 21:15 IMPRESSION: 1. No evidence of pulmonary embolism. 2. Diffuse interlobular septal thickening, scattered ground-glass opacities and bilateral pleural effusions, concerning for pulmonary edema. 3. Cardiomegaly, with trace pericardial effusion. 4. Contrast reflux into the hepatic veins suggestive of right heart dysfunction. Reading Location: [facility] Discharge Plan Triage Chief Complaint: Shortness of Breath ED Provider: Carlos Nair Dx/Rx/DC Orders Prescriptions: No Action albuterol sulfate 90 mcg/actuation HFA aerosol inhaler 1 inh inhalation PRN alprazolam 0.5 mg tablet 0.5 mg PO BID Patient Comments: TAKE 1 TABLET BY MOUTH TWICE DAILY zolpidem 10 mg tablet 10 mg PO QHS oxycodone-acetaminophen [Endocet] 5-325 mg tablet 1 tab PO Q6H PRN (Reason: pain) 3 Days Qty: 12 0RF ketorolac 10 mg tablet 10 mg PO Q8H PRN (Reason: pain) Qty: 15 0RF Rx Instructions: maximum total duration of 5 days from all oral, intranasal, or parenteral formulations dicyclomine 20 mg tablet 20 mg PO TID PRN (Reason: abdominal pain) Qty: 30 0RF pantoprazole 20 mg tablet,delayed release (DR/EC) 20 mg PO BID sucralfate [Carafate] 1 gram tablet 1 g PO DAILY Primary Care Provider: Dex Sutherland Referrals: Dex Sutherland MD [Primary Care Provider] - Print Language: Zimbabwean What to do if you have Problems For any increased pain, shortness of breath, bleeding, nausea or vomiting, chestpain, or any unexpected problems, contact your Primary Care Provider. Call [facility] ([phone]) or report tothe closest Emergency Room. Call 911 if necessary. 07/20/242327 Cosigner Signature (if applicable): CC: Dr. Dex Sutherland MD ~ Signed [facility]05-09-2025 Radiology Diagnostic study note [facility] Imaging Services [address] [place], [place] [id number] Abdomen/Pelvis W IV Cont ONLY MR#: [id number] Acct: [id number] Name: MICHELLE MITCHELL Rep #: [id number] : 1980 F 43 From: Mariana Moreno MD PCP: Dr. Dex Sutherland MD Status: R EG ER Study:Abdomen/Pelvis W IV Cont ONLY Date of E xam: 07/20/24 Exam# [id number] Ordering Dr: Almaz Nair DO PROCEDURE: ABDOMEN/PELVIS W IV CONT ONLY 07/20/2024 REASON FOR EXAM: ABDOMINAL PAIN STATUS POST COLONOSCOPY TECHNIQUE: Abdomen and pelvis CT with intravenous contrast. Coronal and Sagittal reconstruction series were provided. PATIENT PREPARATION: Per protocol ORAL CONTRAST TYPE: None. AMOUNT: mL CONTRAST: Omnipaque 350 VOLUME: 100 mL Not Provided Gauge IV One or more dose reduction techniques were used (e.g., Automated exposure control, adjustment of the mA and/or kV according to patient size, use of iterative reconstruction technique. COMPARISON: CT abdomen and pelvis 07/03/2024 FINDINGS: Lung bases: Please see the same-day CT of the chest. Liver: Hepatomegaly, craniocaudal length 19.2 cm. Diffusely heterogenous attenuation. Mild periportal edema. No focal lesion. Gallbladder: No ductal dilation. Cholecystectomy. Spleen: Normal size. Pancreas: Normal size without evidence of mass surrounding inflammation or ductal dilation. Adrenals: Unremarkable. Kidneys: Normal renal sizes. No hydronephrosis. Bladder: Urinary bladder is unremarkable. Reproductive Organs: No pelvic mass. Bowel: Stomach is collapsed. No bowel dilation or wall thickening. Appendix: Status post cholecystectomy. Lymph nodes: Unremarkable. Vasculature: The abdominal aorta and IVC are normal. Mild atherosclerotic calcification. Peritoneum / Retroperitoneum: Small abdominopelvic ascites. No pneumoperitoneum. Bones: No acute osseous abnormality. Soft tissue: Mild diffuse subcutaneous edema. CT/Abdomen/Pelvis W IV Cont ONLY IMPRESSION: 1. No acute findings in the abdomen and pelvis. 2. Mild hepatomegaly with heterogenous hepatic attenuation. 3. Small abdominopelvic ascites. [facility] CC: Dr. Dex Sutherland MD; Dr. Carlos Nair DO ~ Assembly Department Supervisor: Signed [facility]05-09-2025 Radiology Diagnostic study note [facility] Imaging Services [address] [place] [address] [id number] CTA Chest W/WO Contrast MR#: [id number] Acct: [id number] Name: MICHELLE MITCHELL Rep #: [id number] : 1980 F 43 From: Mariana Moreno MD PCP: Dr. Dex Sutherland MD Status: R EG ER Study:CTA Chest W/WO Contrast Date of Exam: 07/20/24 Exam# [id number] Ordering Dr: Almaz Nair DO PROCEDURE: CTA CHEST W/WO CONTRAST 07/20/2024 REASON FOR EXAM: SOB, ELEVATED D-DIMER TECHNIQUE: CTA axial imaging of the chest with intravenous contrast. Multiplanar and multisequence images wereobtained. PATIENT PREPARATION: Per protocol CONTRAST: Omnipaque 350 VOLUME: 100 mL Not Provided Gauge IV One or more dose reduction techniques were used (e.g., Automated exposure control, adjustment of the mA and/or kV according to patient size, use of iterative reconstruction technique). COMPARISON: CT chest 12/26/2022 FINDINGS: Hardware: Right chest wall ICD. Lymph nodes: No suspicious adenopathy. Heart: Mild cardiomegaly. Trace pericardial effusion. Thoracic Aorta: No thoracic aortic aneurysm or dissection. Pulmonary Vessels: No large central pulmonary emboli are identified. Contrast timing is suboptimal for evaluation of more distal branches. Most Proximal Level of Embolus (if embolus present): None Lungs and Airways: Central airways are patent without endobronchial lesions. Upper lobe predominantdiffuse interlobular septal thickening. Mild diffuse ground-glass opacities and mosaic attenuation. No suspicious pulmonary nodules. No pneumothorax. Small bilateral pleural effusions, with atelectasis. Upper Abdomen: Contrast reflux into the hepatic veins, suggestive of right heartdysfunction. Partially imaged perihepatic and perisplenic ascites. Bones: No acute osseous abnormality. Chest wall: Chest wall is unremarkable. CT/CTA Chest W/WO Contrast IMPRESSION: 1. No evidence of pulmonary embolism. 2. Diffuse interlobular septal thickening, scattered ground-glass opacities and bilateral pleural effusions, concerning for pulmonary edema. 3. Cardiomegaly, with trace pericardial effusion. 4. Contrast reflux into the hepatic veins suggestive of right heart dysfunction. [facility] CC: Dr. Dex Sutherland MD; Dr. Carlos Nair DO ~ Assembly Department Supervisor: Signed [facility]05-09-2025 Radiology Diagnostic study note [facility] Imaging Services [address] [place] [address] Chest 1 View (Portable) MR#: [id number] Acct: [id number] Name: MICHELLE MITCHELL Rep #: [id number] : 1980 F 43 From: Mariana Moreno MD PCP: Dr. Dex Sutherland MD Status: R EG ER Study:Chest 1 View (Portable) Date of Exam: 07/20/24 Exam# [id number] Ordering Dr: Almaz Nair DO PROCEDURE: CHEST 1 VIEW (PORTABLE) 07/20/2024 REASON FOR EXAM: SHORTNESS OF BREATH TECHNIQUE: Frontal view of the chest. COMPARISON: 07/04/2023 FINDINGS: Hardware: Right pacemaker, unchanged. Heart: Cardiac and mediastinal contours are stable. Lungs: No focal consolidation. No pneumothorax. No pleural effusion. Bones: The bones are unremarkable. Other: RAD/Chest 1 View (Portable) IMPRESSION: No Acute Findings. Reading Location: [facility] CC: Dr. Dex Sutherland MD; Dr. Carlos Nair DO ~ Assembly Department Supervisor: Signed [facility]05-09-2025 Discharge summary Author Carlos Nair [facility] Note Date/Time July 20, 2024 11:28p m [facility] Medical Records Department [address] [facility] [place] [address] Emergency Department Summary 07/20/24 MR#: [id number] Acct: [id number] Name: MICHELLE MITCHELL Rep #:[id number] : 1980 43 From: Carlos Jama PCP: Dr. 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 Ovarian cancer GERD (gastroesophageal reflux disease) Insomnia Anxiety Collapsed lung History of blood clots Asthma Breast cancer Pacemaker ICD (implantable cardioverter-defibrillator) in place Hypertrophic cardiomyopathy Home Medications ?Medication ?Instructions ?Recorded ?Last Taken ?Type alprazolam 0.5 mg tablet 0.5 mg PO BID 11/13/2107/11 History zolpidem 10 mg tablet 10 mg PO QHS 11/13/21 History albuterol sulfate 90 mcg/actuation 1 inh inhalation NJ N 07/26/23 Unknown History aerosol inhaler oxycodone-acetaminophen 5 mg-325 1 tab PO Q6H PRN pain 3 days #12 07/01/24 Unknown Rx mg tablet (Endocet) tabs dicyclomine 20 mg tablet 20 mg PO TID PRN abdominal p ain 07/03/24 Unknown Rx #30 tabs ketorolac 10 mg tablet 10 mg PO Q8H PRN pain #15 ta bs 07/03/24 Unknown Rx pantoprazole 20 mg tablet,delayed 20 mg PO BID 5 07/11/24 History release sucralfate 1 gram tablet (Carafate) 1 g PO DAILY 07/1007/11/24 History Allergy/AdvReac Type Severity Reaction Status Date / Time morphine Allergy Mild Hives Verified 07/20/24 19:03 codeine Allergy Hives Verified 07/20/24 19:03 erythromycin base Allergy PT UNSURE Verified 07/20/24 19:03 OF REACTION Fish Containing Products Allergy Other Verified 07/20/24 19:03 levofloxacin Allergy PT UNSURE Verified 07/20/24 19:03 OF REACTION shellfish derived Allergy Other Verified 07/20/24 19:03 tramadol Allergy Hives Verified 07/20/24 19:03 trimethobenzamide (From Allergy Other Verified 07/20/24 19:03 Tigan) gabapentin (From Neurontin) AdvReac Severe Anaphylaxis Verified 07/20/24 19:03 acetaminophen (From Vicodin) AdvReac Other Verified 07/20/24 19:03 hydrocodone (From Vicodin) AdvReac Other Verified 07/20/24 19:03 metoclopramide (From Reglan) AdvReac Other Verified 07/20/24 19:03 Family History Father Heart disease Idiopathic hypertrophic subaortic stenosis, hypertrophic obstructive cardiomyopathy, congestive heart failure Mother Breast cancer DVT (deep venous thrombosis) Sister Hypertrophic obstructive cardiomyopathy heart transplant at age 34 Cancer Brain, breast, and colon Grandfather Heart disease at age 45 Grandmother CVA (cerebral vascular accident) age 43 Surgical History History of cardiac catheterization History of oophorectomy History of cervical polypectomy History of colonoscopy History of tubal ligation History of mastectomy History of cholecystectomy Hx of appendectomy Social History household members: spouse and family housing: house current occupational status: employed Smoking Status: Current every day smoker tobacco type: cigarettes how long ago did patient quit smokin months ago alcohol intake: former substance use type: does not use caffeine: Yes EXAM Physical Exam Const Vital Signs: 07/20/24 18:57 07/20/24 21:00 07/20/24 21:00 Temperature 97.6 F L 98.3 F Temperature Source Temporal Oral Pulse Rate 88 74 75 Respiratory Rate 22 H 20 H 21 H Blood Pressure 146/101 H 149/90 H 149/90 H Blood Pressure Mean 116 109 109 Pulse Ox 98 98 100 Oxygen Delivery Method Room Air Room Air MDM MDM MDM Narrative Medical decision making narrative: HISTORY OF PRESENT ILLNESS: Chief complaint: Shortness of breath, abdominal pain 43-year-old female history of asthma, GERD, hypertrophic cardiomyopathy, status post ICD presents abdominal pain following a colonoscopy 8 days ago. She statesabdominal pain is diffuse located in the epigastrium. It has been going on since . Has been constant. Has not been worse since colonoscopy but she states it is worse this evening and she had an episode of turning blue and almost passing out she presents to the ED. She notes 1 episode of nonbloody nonbilious vomitus prior to arrival that was relieved with Zofran. Denies constipation or diarrhea. Denies melena hematochezia. Denies vaginal bleeding or discharge. Denies trouble urinating. In terms of near syncope patient denies chest pain. Notes shortness of breath. Notes history of PE but denies being on blood thinners. Denies unilateral leg swelling, estrogen use, hemoptysis. Denies malignancy with treatment within the last 6 months. Patientdenies cough fever or chills. Patient denies REVIEW OF SYSTEMS: Pertinent positives: Shortness of breath, abdominal pain Pertinent negatives: Fever PHYSICAL EXAM: Nursing triage notes reviewed, Vital signs reviewed Constitutional: please see mdm HENT: MMM Eyes: Pupils equal round and reactive to light, Extraocular muscles intact Neck: No stridor, no JVD, full neck ROM Lungs: Clear to auscultation, No wheezing or rales. No increased work of breathing, no conversational dyspnea, no accessory muscle use, no nasal flaring. No respiratory distress noted Heart: Regular rate and rhythm, No murmurs, No rubs and No gallops, 2+ distal pulses (radial, femoral, posterior tibial) in all extremities Abdomen: Soft, epigastric TTP but no rigidity, rebound or guarding, no obvious peritoneal signs, no palpable pulsatile abdominal masses, no auscultated abdominal bruit : No CVAT Extremities: No edema Neuro: No new focal neurological deficits, cranial nerves II through XII intact,5/5 strength in all present extremities. Intact sensation to light touch in all present extremities, 2+ reflexes bilateral patella tendons. Skin: No rash or lesions noted MEDICAL DECISION MAKING: Chief Complaint: please see HPI External records reviewed: Reviewed echocardiogram from 2023 shows ejection fraction 50%. Stage I diastolic dysfunction Factors affecting care: none Social determinants of health: none History obtained from others: none Consults: Dr. Torrez (internal medicine) [facility] Narrative: Patient was initially tachypneic otherwise afebrile and nontoxic-appearing. Saturating 98% on room air exam I considered the following differential diagnosis: Perforation, pneumonia, anemia, electrolyte disturbance, ACS, arrhythmia, PE. AAA, small bowel obstruction, abdominal perforation, appendicitis, pancreatitis, hepatobiliary pathology (acute cholecystitis), mesenteric ischemia, pathology (ie nephrolithiasis, pyelonephritis). Initially treated the patient with 1 L IV fluid, Zofran and Toradol for initial pain control. I was comfortable treating with NSAID patient was she has had a tubal ligation and oophorectomy in the past. ALL IMAGES (IF OBTAINED) HAVE BEEN PERSONALLY REVIEWED AND INTERPRETED BY MYSELF. EKG with normal sinus rhythm rate 76, left axis deviation, no stemi, no sign of right heart strain, no S1 Q3 T3 Initial troponin indeterminate, delta Trope rules and per high-sensitivity troponin protocol. D-dimer elevated consistent with increased clot breakdown concerning for VTE given patient reported shortness of breath and near syncope CBC with leukocytosis suggestive of systemic inflammation, no anemia or thrombocytopenia noted BMP without significant [place] abnormalities, no sign of RADHA, LFTs within normal limits BNP elevated consistent with volume overload Lipase is wnl indicating no pancreatic inflammation. CTA of the chest was noted to be partial with evidence of CHF and cardiomegaly CT scan of the abdomen pelvis shows no evidence of acute intra-abdominal The synthesis of the patient's history, physical exam, labs images suggest likely CHF exacerbation given elevated BNP. This is likely causing her high since her troponin values to rule in based on her protocol. Will give diuresis in the form of IV Lasix. Will admit the patient for close KISHA monitoring, cardiology consultation and further evaluation. Discussed with hospitalist Dr. Torrez who accepted the patient's case to the PCU as a full admission. The patient and/or family, caregivers express understanding. The patient and/orfamily, caregivers agrees with the plan. Shared decision making: I will have a discussion with the patient and or visitors regarding risk/benefits of further testing or admission. They will be made aware of of the risk/benefits inherent in this decision they will be given the opportunity to voice understanding. Total critical care time today provided was at least 0 minutes. This excludes separately billable procedures. Critical care time (if documented) is secondary to the patient having high probability of clinically significant/life threatening deterioration in the patient's condition which required my urgent intervention. Impression: 1. Acute abdominal pain 2. Dyspnea 3. Near syncope 4. CHF exacerbation Dispo: Admit to PCU This note was generated with [employer] dictation software. It may contain incorrectwords, spelling, and punctuation that were not noted in review of the chart prior to signing. Lab Data Labs: Laboratory Results - last 24 hr 07/20/24 07/20/24 19:26 20:05 WBC 14.3 H RBC 4.11 L Hgb 13.2 Hct 40.2 MCV 97.8 MCH 32.1 H MCHC 32.8 RDW Std Deviation 51.0 H RDW Coeff of Damon 14.1 Plt Count 303 MPV 10.3 Immature Gran % (Auto) 1.000 H Neut % (Auto) 94.7 H Lymph % (Auto) 2.7 L [place] % (Auto) 1.5 Eos % (Auto) 0.0 Baso % (Auto) 0.1 Absolute Neuts (auto) 13.6 H Absolute Lymphs (auto) 0.38 L Nucleated RBC % 0 D-Dimer Quant (PE/DVT) 1.06 H* Sodium 135 Potassium 4.4 Chloride 104 Carbon Dioxide 19.0 L Anion Gap 13 BUN 19 Creatinine 0.88 Estim Creat Clear Calc 70.45 Est GFR (MDRD) Non-Af 83 BUN/Creatinine Ratio 21.8 H Glucose 171 H Calcium 9.3 Total Bilirubin 0.61 Direct Bilirubin 0.29 AST 26 ALT 34 Alkaline Phosphatase 116 H Troponin T High Sens 27 H NT pro BNP II 6468 H Total Protein 6.8 Albumin 4.3 Globulin 2.5 Albumin/Globulin Ratio 1.7 Lipase 32 Urine Color Straw Urine Clarity Clear Urine pH 6.0 Ur Specific [place] 1.020 Urine Protein 100 H Urine Glucose (UA) Normal Urine Ketones Negative Urine Occult Blood 25 H Urine Nitrite Negative Urine Bilirubin Negative Urine Urobilinogen Normal Ur Leukocyte Esterase Negative Urine RBC 0-5 SEEN Urine WBC 0 SEEN Ur Squamous Epith Cells 5-10 SEEN Urine Bacteria 2+ Hyaline Casts 5-10 SEEN Urine Mucus 1+ Urine Test Negative Radiography Diagnostic Testing: Clinical Impression(s) from Imaging Studies Chest X-Ray 07/20/24 20:06 IMPRESSION: No Acute Findings. Reading Location: [facility] Chest CTA 07/20/24 21:15 IMPRESSION: 1. No evidence of pulmonary embolism. 2. Diffuse interlobular septal thickening, scattered ground-glass opacities and bilateral pleural effusions, concerning for pulmonary edema. 3. Cardiomegaly, with trace pericardial effusion. 4. Contrast reflux into the hepatic veins suggestive of right heart dysfunction. Reading Location: [facility] Discharge Plan Triage Chief Complaint: Shortness of Breath ED Provider: Carlos Nair Dx/Rx/DC Orders Prescriptions: No Action albuterol sulfate 90 mcg/actuation HFA aerosol inhaler 1 inh inhalation PRN alprazolam 0.5 mg tablet 0.5 mg PO BID Patient Comments: TAKE 1 TABLET BY MOUTH TWICE DAILY zolpidem 10 mg tablet 10 mg PO QHS oxycodone-acetaminophen [Endocet] 5-325 mg tablet 1 tab PO Q6H PRN (Reason: pain) 3 Days Qty: 12 0RF ketorolac 10 mg tablet 10 mg PO Q8H PRN (Reason: pain) Qty: 15 0RF Rx Instructions: maximum total duration of 5 days from all oral, intranasal, or parenteral formulations dicyclomine 20 mg tablet 20 mg PO TID PRN (Reason: abdominal pain) Qty: 30 0RF pantoprazole 20 mg tablet,delayed release (DR/EC) 20 mg PO BID sucralfate [Carafate] 1 gram tablet 1 g PO DAILY Primary Care Provider: Dex Sutherland Referrals: Dex Sutherland MD [Primary Care Provider] - Print Language: Zimbabwean What to do if you have Problems For any increased pain, shortness of breath, bleeding, nausea or vomiting, chestpain, or any unexpected problems, contact your Primary Care Provider. Call [facility] ([phone]) or report to the closest Emergency Room. Call 911 if necessary. 07/20/242327 <Electronically signed by Carlos Nair DO> Cosigner Signature (if applicable): CC: Dr. Dex Sutherland MD ~ Signed [facility] Work Phone: [phone] 448-839605-01-2025 [facility]04-27-2025 NoteHNO ID: [id number] Author: DEJA LOYA RN Service: Care Management Author Type: Registered Nurse Type: Care Mgt Progress Note Filed: 07/08/2024 07:30 Note Text: CARE MANAGEMENT DISCHARGE NOTE SERVICE DATE: July 08, 2024 SERVICE TIME: 7:29 AM Admission Date: 07/04/2024 LOS: 4 days Discharge Arrangement Discharge Arrangement: Home with Self Care Caregiver Assessment Caregiver is ready, willing and able to meet the patient's needs as recommended by the inter-professional team: No Caregiver needed Transportation Arrangements Transportation Arrangements: Car Handoff Communication: Handoff to: Primary Care Physician Primary Care Physician Name/Phone: Dr. Dex Sutherland- [phone] Additional Information: Discharge order written for today. No skilled home going needs identified at discharge. SIGNATURE: Deja Loya RN PATIENT NAME: Michelle Mitchell DATE: July 08, 2024 TIME: 7:29 [id number] NoteHNO ID: [id number] Author: DEX SUTHERLAND MD Service: Family Practice Author Type: Physician Type: Progress Notes Filed: 07/07/2024 08:22 Note Text: INPATIENT PROGRESS NOTES Patient Name: Michelle Mitchell DATE of SERVICE: 07/07/2024 TIME of SERVICE: 8:21 AM PRIMARY SERVICE: Family Practice INTERVAL HPI: had EGD - showed some irritation ASSESSMENT AND PLAN: Continue with pain meds and nausea meds Appreciate GI input MEDICATIONS: Current Facility-Administered Medications Medication Dose Route Frequency iv contrast (radiology procedure) INTRAVENOUS DIRECTED PRN ALPRAZolam 0.5 mg tab(s) (XANAX) 0.5 mg ORAL BID PRN zolpidem 10 mg tab(s) (AMBIEN) 10 mg ORAL AT BEDTIME albuterol 2.5 mg /3 mL (0.083 %) 2.5 mg (PROVENTIL) 3 mL INHALATION q 4 H PRN vortioxetine 10 mg tab(s) (TRINTELLIX) 10 mg ORAL DAILY oxyCODONE IR 5 mg tab(s) (ROXICODONE) 5 mg ORAL q 4 H PRN prochlorperazine 10 mg injection (COMPAZINE) 10 mg INTRAVENOUS q 6 H PRN ondansetron orally disintegrating 8 mg tab(s) (ZOFRAN ODT) 8 mg ORAL q 8 H PRN enoxaparin 40 mg injection (LOVENOX) 40 mg SUBCUTANEOUS q 24 HR NaCl 0.9% iv flush bag 20 mL INTRAVENOUS PRN HYDROmorphone 1 mg injection (DILAUDID) 1 mg INTRAVENOUS q 4 H PRN acetaminophen 650 mg tab(s) (TYLENOL) 650 mg ORAL q [address] 40 mg tab(s) (PROTONIX) 40 mg ORAL BID AC (0600/1600) sucralfate 1 g tab(s) (CARAFATE) 1 g ORAL BID AC psyllium 1 packet (METAMUCIL) 1 packet ORAL BID Patient Vitals for the past 48 hrs: BP Temp Temp src Pulse Resp SpO2 07/07/24 0706 143/71 36.8 ?C (98.2 ?F) Oral 71 16 92 % 07/07/24 0418 135/75 36.7 ?C (98.1 ?F) Oral 75 16 95 % 07/06/24 1858 130/78 36.9 ?C (98.4 ?F) Oral 75 16 99 % 07/06/24 1619 -- -- -- 67 -- 100 % 07/06/24 1513 134/94 36.9 ?C (98.4 ?F) Oral 62 18 94 % 07/06/24 1151 -- -- -- (!) 58 -- 94 % 07/06/24 1051 -- -- -- -- -- 100 % 07/06/24 1044 140/86 36.7 ?C (98 ?F) Oral 67 16 100 % 07/06/24 1015 110/56 -- -- 60 21 92 % 07/06/24 1000 104/58 -- -- 66 25 92 % 07/06/24 0954 106/58 36 ?C (96.8 ?F) Temporal 69 22 92 % 07/06/24 0653 125/71 36.5 ?C (97.7 ?F) Oral 70 16 95 % 07/05/242000 136/87 36.5 ?C (97.7 ?F) Oral 62 16 95 % 07/05/24 1509 131/79 36.4 ?C (97.5 ?F) Oral 61 16 98 % 07/05/24 1123 132/81 36.3 ?C (97.3 ?F) Axillary (!) 59 18 98 % PHYSICAL EXAM: GENERAL: alert, no distress, cooperative SKIN: No rashes or lesions. OROPHARYNX: Oropharynx normal. NECK: no jugulovenous distention, supple LUNGS: Lungs clear to auscultation. CARDIAC: normal S1 and S2; no rubs, murmurs, or gallops ABDOMEN: Abdomen soft, non-tender. BS normal. No masses or organomegaly. EXTREMETIES: No deformities, cyanosis, edema, clubbing or skin discoloration. NEURO: Alert, oriented X 3, Gait normal. Motor and Sensation grossly intact., DATA: CBC: Recent Labs 07/07/24 0557 WBC 8.79 RBC 4.21 HB 13.4 HCT 41.1 PLT 241 MCV 97.6 MCH 31.8 MPV 10.3 Coags: No results for input(s): PT, INR, APTT in the last 24 hours. CMP: Recent Labs 07/07/24 0557 NA 139 K 4.1 CHLOR 104 CO2 25 BUN 7 CREAT 0.81 GLUC 104* TPROT 6.3 CA 9.0 TBILI 1.3 ALKPHOS 118 ALT 24 AST 20 ANION 10 Cardiac Enzymes: No results for input(s): CK, MB, CKMB, TROPT in the last 24 hours. Liver Function, Amylase, Lipase: Recent Labs 07/07/24 0557 TPROT 6.3 ALB 3.7* ALT 24 AST 20 ALKPHOS 118 TBILI 1.3 ABG's: No results for input(s): PH, PCO2, PO2, BE, HCO3, CO2CT, O2HB, COHB, MHGB, TEMP, PHTC, PCO2T, PO2T, O2AD in the last 24 hours. MG/PHOS: No results for input(s): MG, P in the last 24 hours. Plan of care discussed with: . SIGNATURE: Dex Sutherland MD DATE: July 07, 2024 TIME: 8:21 [id number] NoteHNO ID: [id number] Author: TANJA VALVERDE RN Service: Care Management Author Type: Registered Nurse Type: Care Mgt Progress Note Filed: 07/06/2024 11:25 Note Text: CARE MANAGEMENT PROGRESS NOTE SERVICE DATE: 07/06/2024 SERVICE TIME: 11:23 AM LOS: 2 days 07/04/24 Admission Hospital Consult: GI O2: room air Diet: Heart Healthy 07/06/24 EGD Discharge Plan: Home Discharge Transportation: Car/Family Needs Prior to Discharge: To Be Determined CM Dept to Follow. SIGNATURE: Tanja Valverde RN PATIENT NAME: Michelle Mitchell DATE: July 06, 2024 TIME: 11:23 [facility] [id number] NoteHNO ID: [id number] Author: DEX SUTHERLAND MD Service: Family Practice Author Type: Physician Type: Progress Notes Filed: 07/06/2024 08:12 Note Text: INPATIENT PROGRESS NOTES Patient Name: Michelle Mitchell DATE of SERVICE: 07/06/2024 TIME of SERVICE: 8:07 AM PRIMARY SERVICE: Family Practice INTERVAL HPI: about the same +pain and nausea No vomiting ASSESSMENT AND PLAN: EGD today MEDICATIONS: Current Facility-Administered Medications Medication Dose Route Frequency iv contrast (radiology procedure) INTRAVENOUS DIRECTED PRN ALPRAZolam 0.5 mg tab(s) (XANAX) 0.5 mg ORAL BID PRN zolpidem 10 mg tab(s) (AMBIEN) 10 mg ORAL AT BEDTIME albuterol 2.5 mg /3 mL (0.083 %) 2.5 mg (PROVENTIL) 3 mL INHALATION q 4 H PRN vortioxetine 10 mg tab(s) (TRINTELLIX) 10 mg ORAL DAILY oxyCODONE IR 5 mg tab(s) (ROXICODONE) 5 mg ORAL q 4 H PRN prochlorperazine 10 mg injection (COMPAZINE) 10 mg INTRAVENOUS q 6 H PRN ondansetron orally disintegrating 8 mg tab(s) (ZOFRAN ODT) 8 mg ORAL q 8 H PRN enoxaparin 40 mg injection (LOVENOX) 40 mg SUBCUTANEOUS q 24 HR NaCl 0.9% iv flush bag 20 mL INTRAVENOUS PRN HYDROmorphone 1 mg injection (DILAUDID) 1 mg INTRAVENOUS q 4 H PRN acetaminophen 650 mg tab(s) (TYLENOL) 650 mg ORAL q 6 H PRN pantoprazole 40 mg injection (PROTONIX) 40 mg INTRAVENOUS DAILY (6 AM) Patient Vitals for the past 48 hrs: BP Temp Temp src Pulse Resp SpO2 Height Weight 07/06/24 0653 125/71 36.5 ?C (97.7 ?F) Oral 70 16 95 % -- -- 07/05/242000 136/87 36.5 ?C (97.7 ?F) Oral 62 16 95 % -- -- 07/05/24 1509 131/79 36.4 ?C (97.5 ?F) Oral 61 16 98 % -- -- 07/05/24 1123 132/81 36.3 ?C (97.3 ?F) Axillary (!) 59 18 98 % -- -- 07/05/24 0710 133/80 36.3 ?C (97.3 ?F) Oral 62 16 94 % -- -- 07/05/24 0327 131/85 36.3 ?C (97.3 ?F) Temporal Art (!) 56 18 95 % -- -- 07/04/24 2336 129/83 36.4 ?C (97.5 ?F) Oral 62 20 96 % -- -- 07/04/242157 -- -- -- -- -- -- 162.6 cm (5' 4) -- 07/04/242152 -- -- -- -- -- -- -- 60.2 kg (132 lb 11.5 oz) 07/04/242149 117/78 36.4 ?C (97.5 ?F) Oral 66 18 97 % -- -- 07/04/242133 136/80 -- -- 77 20 99 % -- -- 07/04/242018 141/80 -- -- -- -- -- -- -- 07/04/24 195 144/84 -- -- 75 20 97 % -- -- 07/04/24 1937 -- -- -- 70 22 -- -- -- 07/04/24 1646 144/91 -- -- -- -- -- -- -- 07/04/24 1644 140/92 -- -- 63 20 98 % -- -- 07/04/24 1549 143/93 36.5 ?C (97.7 ?F) Oral -- -- -- -- -- 07/04/24 1547 -- -- -- 78 18 99 % -- -- PHYSICAL EXAM: GENERAL: alert, no distress, cooperative SKIN: No rashes or lesions. OROPHARYNX: Oropharynx normal. NECK: no jugulovenous distention, supple LUNGS: Lungs clear to auscultation. CARDIAC: normal S1 and S2; no rubs, murmurs, or gallops ABDOMEN: Abdomen soft, non-tender. BS normal. No masses or organomegaly. EXTREMETIES: No deformities, cyanosis, edema, clubbing or skin discoloration. NEURO: Alert, oriented X 3, Gait normal. Motor and Sensation grossly intact., DATA: CBC: Recent Labs 07/06/24 0536 WBC 9.08 RBC 4.08 HB 13.3 HCT 40.4 PLT 239 MCV 99.0 MCH 32.6 MPV 10.6 Coags: No results for input(s): PT, INR, APTT in the last 24 hours. CMP: Recent Labs 07/06/24 0536 NA 138 K 3.9 CHLOR 102 CO2 25 BUN 9 CREAT 0.85 GLUC 91 TPROT 6.2* CA 9.2 TBILI 1.3 ALKPHOS 134* ALT 32 AST 24 ANION 11 Cardiac Enzymes: No results for input(s): CK, MB, CKMB, TROPT in the last 24 hours. Liver Function, Amylase, Lipase: Recent Labs 07/06/24 0536 TPROT 6.2* ALB 4.1 ALT 32 AST 24 ALKPHOS 134* TBILI 1.3 ABG's: No results for input(s): PH, PCO2, PO2, BE, HCO3, CO2CT, O2HB, COHB, MHGB, TEMP, PHTC, PCO2T, PO2T, O2AD in the last 24 hours. MG/PHOS: No results for input(s): MG, P in the last 24 hours. Plan of care discussed with: . SIGNATURE: Dex Sutherland MD DATE: July 06, 2024 TIME: 8:07 AMToledo [id number] NoteHNO ID: [id number] Author: RU GARCIA, Drafter Chief Design Service: Clinical Cardiology Author Type: Drafter Chief Design Type: Progress Notes Filed: 07/05/2024 11:07 Note Text: Summary: Pacemaker Check Pacemaker checked with [employer] and data transmitted. Spoke to rep who will fax report directly to the floor. Floor notified.Toledo HospitalLdsyksqf37-96-2673 NoteHNO ID: [id number] Author: TANJA VALVERDE RN Service: Care Management Author Type: Registered Nurse Type: Care Mgt Initial Assessment Filed: 07/05/2024 09:10 Note Text: CARE MANAGEMENT: ASSESSMENT AND DISCHARGE PLAN SERVICE DATE: July 05, 2024 SERVICE TIME: 9:05 AM manager plant spoke with patient to complete Care Management Assessment. Introduction made and role of Care Management explained. PCP: Dex Sutherland MD - Patient confirmed. Primary Contact: Extended Emergency Contact Information Primary Emergency Contact: Babar Mitchell Address: [address] [place] [address] [address] [place] [address] [facility] Relation: Spouse Admission Status: Inpatient Insurance Provider: [facility] P[facility] Discharge Planning requested by: Per Department Practice Potential Transition Plans Home Advance Directives Current Advance Directive: None Aeronautical Inspector Attempted to Assist with AD Completion: Yes Action: Education Provided Current Living Arrangements and Support Lives with: Family: Spouse and Daughter Type of Residence: Private Residence (House) Support: Family members How do you manage to accomplish the following: Independent: Ambulation, Bathe/Shower, Dress, Meals/Meal Prep, Going to the bathroom, Medication Management, Transportation to appointments/community Current Services/Equipment Current DME Type: None Current Post-Acute Service(s) Provider: None Discharge Planning Patient Goal(s): Less pain, General wellness, Be able to go home [place] of Choice Explained: [place] of Choice Given: No (Discharge Needs: To be Determined) Are you interested in bedside delivery of your medications? N/A Discharge Pharmacy Preference: [facility] in [place] Discharge Planning Participant(s): Family (Spouse and 19 year old daughter) Transport at Discharge: Transportation Arrangements: Car Destination: Home Needs Prior to Discharge: Needs Prior to Discharge: To Be Determined Post-Acute Discharge Plan: From home. Lives with Family: Spouse and 19 year old daughter Patient reports she is independent with all her care. Employed. Drives. Patient reports she has an Implantable cardioverter - defibrillator. DME: Patient reports None Active Services: Patient reports None Discharge Plan: Home Discharge Transportation: Family - Spouse or Daughter CM dept to follow. SIGNATURE: Tanja Valverde RN PATIENT NAME: Michelle Mitchell DATE: July 05, 2024 TIME: 9:05 [facility] [id number] NoteHNO ID: [id number] Author: ALEKSANDRA CALDWELL APRN.CNP Service: General Internal Medicine Author Type: Nurse Practitioner Type: Progress Notes Filed: 07/05/2024 00:00 Note Text: INTERNAL MEDICINE PROGRESS NOTE SERVICE DATE: 07/04/2024 SERVICE TIME: 2100 Primary Attending: Shanna George MD Subjective CHIEF COMPLAINT: Abdominal Pain (was seen twice at [place] her dr told her to come here pt states pain is not getting better) HPI: This is a 43 year old female with a past medical history significant for breast cancer at age 17 (s/p lumpectomy and chemotherapy), ovarian cancer s/p oophorectomy, endometrial cancer s/p ablation, DVT/PE (not currently on anticoagulation), CHF, pericarditis, hypertrophic obstructive cardiomyopathy, ICD placement, PUD, GERD. Patient recently admitted 05/16/24-05/22/24 for leg abscess and was treated with abx and discharged home. Now patient in ED 07/04 with complaints of severe abd pain x3 days. Patient has presented [facility] times in the past few days with the same complaints and was discharge home. Patient continued to have worsening pain she discussed with her PCP Dr. Sutherland who told her to go to [facility]. Lab work showing some mild transaminitis ALT/AST 40/40. Leukocytosis present with WBC 14.75. UA neg. CT c/a/p showing new mild hepatomegaly and abd ascites most prominent in the pelvis. Patient given 1L NS bolus, Zofran IV x1, Lasix 20mg IV x1, fentanyl 50mcg IV x1, and dilaudid 0.5mg IV x1 and admitted for further workup and management of abd pain. PAST MEDICAL HISTORY Diagnosis Date Breast cancer (HCC) Age 17 treated with radiation, lumpectomy and masectomy CIS (carcinoma in situ of cervix) Colon polyp 07/2015 Congestive heart failure (HCC) HOCM DVT (deep venous thrombosis) (HCC) Endometrial cancer (HCC) treated with ablation Gastroesophageal reflux disease 08/17/2017 GERD (gastroesophageal reflux disease) Hypertr obst cardiomyop ICD (implantable cardiac defibrillator) battery depletion Kidney stone Migraine Ovarian epithelial cancer (HCC) This diagnosis unlikely as both ovaries present 05/09/2018 laparoscopy Pericarditis (HCC) PUD (peptic ulcer disease) Pulmonary embolism (HCC) 11/2016 Vaginal Pap smear with ASC-US 12/2016 Prior to Admission Medications Prescriptions Last Dose Informant Patient Reported? Taking? ALPRAZolam (XANAX) 0.5 mg tablet Yes No Sig: Take 0.5 mg by mouth twice daily. albuterol HFA (VENTOLIN HFA) 90 mcg/actuation inhaler Yes No Sig: Inhale 2 Puffs as instructed every 4 hours as needed for wheezing/shortness of breath. oxyCODONE IR (ROXICODONE) 5 mg immediate release tablet Yes No Sig: Take by mouth every 8 hours as needed for pain. sulfamethoxazole-trimethoprim (BACTRIM DS) 800-160 mg per tablet No No Sig: Take 1 tablet by mouth two times a day. vortioxetine (TRINTELLIX) 10 mg tablet Yes No Sig: Take 10 mg by mouth once daily. zolpidem (AMBIEN) 10 mg Tab Yes No Sig: Take 10 mg by mouth daily at bedtime. Facility-Administered Medications: None Review of Systems Constitutional: Positive for activity change, appetite change and fatigue. HENT: Negative. Eyes: Negative. Respiratory: Negative. Cardiovascular: Negative. Gastrointestinal: Positive for abdominal pain, blood in stool and nausea. Endocrine: Negative. Genitourinary: Negative. Musculoskeletal: Negative. Skin: Negative. Allergic/Immunologic: Negative. Neurological: Negative. Hematological: Negative. Psychiatric/Behavioral: Negative. Objective Physical Exam HENT: Head: Normocephalic. Nose: Nose normal. Mouth/Throat: Mouth: Mucous membranes are moist. Eyes: Pupils: Pupils are equal, round, and reactive to light. Cardiovascular: Rate and Rhythm: Normal rate. Pulmonary: Effort: Pulmonary effort is normal. Abdominal: General: There is distension. Palpations: Abdomen is soft. Tenderness: There is abdominal tenderness. There is guarding. Musculoskeletal: General: Normal range of motion. Cervical back: Normal range of motion. Skin: General: Skin is warm. Capillary Refill: Capillary refill takes less than 2 seconds. Neurological: General: No focal deficit present. Mental Status: She is alert. Psychiatric: Mood and Affect: Mood normal. Behavior: Behavior normal. Patient Vitals for the past 24 hrs: BP Temp Temp src Pulse Resp SpO2 07/04/24 2019 141/80 -- -- -- -- -- 07/04/24 1959 144/84 -- -- 75 20 97 % 07/04/24 1937 -- -- -- 70 22 -- 07/04/24 1646 144/91 -- -- -- -- -- 07/04/24 1644 140/92 -- -- 63 20 98 % 07/04/24 1549 143/93 36.5 ?C (97.7 ?F) Oral -- -- -- 07/04/24 1547 -- -- -- 78 18 99 % There is no height or weight on file to calculate BMI. DATA: Diagnostic tests reviewed for today's visit: Most recent labs and imaging results. Most recent labs Most recent imaging Most recent EKG Past 72 Hour Labs: Recent Labs 07/04/24 1 (more content not included)...[facility] HospitalOlvkavzd09-29-5843 Evaluation note* Diagnosis Onset Date Resolution Status Admit Date Abdominal pain acute June 1:06pm Hypertrophic cardiomyopathy inactive July 04, 2024 11:17am ICD (implantable cardioverter-defibrillator) in place inactive July 04, 2024 11:17am Pacemaker inactive July 04 11:17am Hypertrophic cardiomyopathy inactive July 10, 2024 1:28pm ICD (implantable cardioverter-defibrillator) in place inactive July 10, 2024 1:28pm Abdominal pain acute July 12, 9:45am GERD (gastroesophageal reflu x disease) acute July 12, 2024 9: 45am Abdominal pain acute July 21, 2024 12:26am Hemorrhagic gastritis acute July 21, 2024 12:26am HFrEF (heart failure with reduced ejection fraction) acute July 122024 12:26am Pulmonary hypertension acute 2024 12:26am Vegetation of heart valve acute July 21, 2024 12:26am Elevated troponin resolved July 12:26am Nausea & vomiting resolved July 12:26am Acute systolic congestive he art failure, NYHA class 3 inactive July 21, 2024 12:26am History of hypertrophic cardiomyopathy inactive July 21, 2024 1 2:26am Hypertension inactive July 21 12:26am Hypertrophic cardiomyopathy inactive July 21, 2024 12:26am ICD (implantable cardioverter-defibrillator) in place inactive July 21, 2024 1 2:26am Leukocytosis inactive July 21 12:26am Pacemaker inactive July 21, 2024 12:26am Presence of implantable cardioverter-defibrillator (ICD) inactive July 21, 2024 12:26am Severe pulmonary hypertension inacti ve July 21, 2024 12:26am (HFpEF) heart failure with preserved ejection fraction deleted July 21, 2024 12:26am Heart failure of unknown etiology deleted July 21, 2024 1 2:26am Abdominal pain acute August 08, 2024 8:24am GERD (gastroesophageal reflu x disease) acute August 08, 2024 8 :24am Pulmonary hypertension acute Ma y 2024 8:24am [facility] Work Phone: 1(147) 291-150904-22-2025 Evaluation note* Diagnosis Onset Date Resolution Status Admit Date Abdominal pain acute June 1:06pm Hypertrophic cardiomyopathy inactive July 04, 2024 11:17am ICD (implantable cardioverter-defibrillator) in place inactive July 04, 2024 11:17am Pacemaker inactive July 04 11:17am Hypertrophic cardiomyopathy inactive July 10, 2024 1:28pm ICD (implantable cardioverter-defibrillator) in place inactive July 10, 2024 1:28pm Abdominal pain acute July 12, 9:45am GERD (gastroesophageal reflu x disease) acute July 12, 2024 9: 45am Abdominal pain acute July 21, 2024 12:26am Hemorrhagic gastritis acute July 21, 2024 12:26am HFrEF (heart failure with reduced ejection fraction) acute July 122024 12:26am Pulmonary hypertension acute Ma y 2024 12:26am Vegetation of heart valve acute July 21, 2024 12:26am Elevated troponin resolved July 12:26am Nausea & vomiting resolved July h2024 12:26am Acute systolic congestive he art failure, NYHA class 3 inactive July 21, 2024 12:26am History of hypertrophic cardiomyopathy inactive July 21, 2024 1 2:26am Hypertension inactive July 21 12:26am Hypertrophic cardiomyopathy inactive July 21, 2024 12:26am ICD (implantable cardioverter-defibrillator) in place inactive July 21, 2024 1 2:26am Leukocytosis inactive July 21 12:26am Pacemaker inactive July 21, 2024 12:26am Presence of implantable cardioverter-defibrillator (ICD) inactive July 21, 2024 12:26am Severe pulmonary hypertension inacti ve July 21, 2024 12:26am (HFpEF) heart failure with preserved ejection fraction deleted July 21, 2024 12:26am Heart failure of unknown etiology deleted July 21, 2024 1 2:26am Abdominal pain acute August 08, 2024 8:24am Diarrhea acute August 08, 2024 8:24am GERD (gastroesophageal reflu x disease) acute August 08, 2024 8 :24am Pulmonary hypertension acute Ma 2024 8:24am [facility] Work Phone: 1(306) 528-817204-20-2025 Radiology Diagnostic study note [facility] Imaging Services [address] [place] [address] Abdomen/Pelvis W IV Cont ONLY MR#: [id number] Acct: [id number] Name: MICHELLE MITCHELL Rep #: [id number] 2 : 1980 F 43 From: Natali cantu Afuwape DO PCP: Dr. Dex Sutherland MD Status: R EG ER Study:Abdomen/Pelvis W IV Cont ONLY Date of E xam: 07/01/24 Exam# [id number] Ordering Dr: Anita Wade PROCEDURE: ABDOMEN/PELVIS W IV CONT ONLY 07/01/2024 REASON FOR EXAM: ABDOMINAL PAIN TECHNIQUE: Abdomen and pelvis CT with intravenous contrast. Coronal and Sagittal reconstruction series were provided. PATIENT PREPARATION: Per protocol ORAL CONTRAST TYPE: None. AMOUNT: mL CONTRAST: Isovue 370 VOLUME: 75 mL Not Provided Gauge IV One or more dose reduction techniques were used (e.g., Automated exposure control, adjustment of the mA and/or kV according to patient size, use of iterative reconstruction technique. RADIATION DOSE SUMMARY: CTDlvol: 41 mGy DLP: 412 mGycm COMPARISON: None FINDINGS: Lung bases: Bilateral pleural effusions with atelectasis. Heart size is normal. No pericardial effusion. Liver: Hepatomegaly with heterogeneous liver parenchyma, no suspicious lesions. Gallbladder: Status post cholecystectomy. Spleen: Heterogeneous appearance of the spleen, likely phase of contrast. Pancreas: Normal size without evidence of mass surrounding inflammation or ductal dilation. Adrenals: Unremarkable Kidneys: Unremarkable Bladder: Unremarkable Reproductive Organs: Multiple prominent pelvic vessels, concerning for pelvic congestion. Bowel: Evaluation of the bowel loops are limited due to lack of oral contrast. The stomach is unremarkable. No inflammatory changes of the proximal small bowel. There is subtle wall thickening of the distal and terminal ileum with hyperenhancement of the wall. Mild stool burden within the right colon. No inflammatory changes ofthe bowel loops. Appendix: The appendix is not clearly visualized. Lymph nodes: No lymphadenopathy. Vasculature: Unremarkable Peritoneum / Retroperitoneum: Small pelvic free fluid. Bones: Unremarkable CT/Abdomen/Pelvis W IV Cont ONLY IMPRESSION: Subtle wall thickening of the distal and terminal ileum with hyperenhancement ofthe wall, suspicious for inflammatory bowel disease, please correlate clinically. Hepatomegaly. Suspected pelvic congestion. Small pelvic free fluid. Small bilateral pleural effusion with atelectasis. Reading Location: [facility] CC: Dr. Dex Sutherland MD; MARCIO Haywood ~ Assembly Department Supervisor: Signed [facility]04-20-2025 Telephone encounter Note* Telephone Encounter - Ella Cohen RN - 07/01/2024 3:41 PM EDT Your fax has been successfully sent to Dr. Sutherland at [phone]. From: Ella Cohen RN 07/01/2024 3:37:02 PM Origin Record Created by SHANTE 07/01/2024 3:37:12 PM Conversion [[email or web address].PRT] Type: application/postscript G3 to TIFF #1: Success [image/g3] (77ms) GhostScript TIFF #1: Success [image/tiff] (209ms) ([id number]) 07/01/2024 3:37:18 PM Transmission Record Sent to [id number] with remote ID [phone] Result: Success Page record: 1 - 3 Elapsed time: 01:39 on channel 48 07/01/2024 3:37:19 PM Conversion Successfully created cover sheet. Type: application/vnd.openxmlformats-officedocument.wordprocessingml.document G3 to TIFF #1: Success [image/g3] (11ms) [employer]Script TIFF #1: Success [image/tiff] (70ms) Resubmitted: [application/postscript] Word Automation #1: Success [image/g3] (1519ms) ([id number]) [facility]Ervzgt27-03-8750 Miscellaneous Notes* Telephone Encounter - Ella Cohen RN - 07/01/2024 3:41 PM EDT Your fax has been successfully sent to Dr. Sutherland at [phone]. From: Ella Cohen RN 07/01/2024 3:37:02 PM Origin Record Created by SHANTE 07/01/2024 3:37:12 PM Conversion [[email or web address].PRT] Type: application/postscript G3 to TIFF #1: Success [image/g3] (77ms) [employer]Script TIFF #1: Success [image/tiff] (209ms) ([id number]) 07/01/2024 3:37:18 PM Transmission Record Sent to [id number] with remote ID [phone] Result: Success Page record: 1 - 3 Elapsed time: 01:39 on channel 48 07/01/2024 3:37:19 PM Conversion Successfully created cover sheet. Type: application/vnd.Roomtagxmlformats-officedocument.wordprocessingml.document G3 to TIFF #1: Success [image/g3] (11ms) GhostScript TIFF #1: Success [image/tiff] (70ms) Resubmitted: [application/postscript] Word Automation #1: Success [image/g3] (1519ms) ([id number]) * Telephone Encounter - Ella Cohen RN - 07/01/2024 3:27 PM EDT S: Patient spoke with [facility] nurse regarding abdominal pain, shortness of breath B: Onset of symptoms/concern 3 days A: Patient complaining of constant 9/10 upper left abdominal pain that radiates into her right shoulder, sweating, shortness of breath. Patient states pain started about 3 days ago but was a dull ache at that time. She has nausea and lack of appetite, two episodes of vomiting. She states she vomited dark brown material that smelled fecal. 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 R: Patient understands care advice to go to ED now or call 911. [facility] but will go as soon as she has someone to take over care. Patient strongly advised to go immediately. She advises she will go to [place]. No further needs at this time. Patient instructed to call back with new or worsening symptoms. Reason for Disposition [1] SEVERE pain (e.g., excruciating) AND [2] present > 1 hour Answer Assessment - Initial Assessment Questions 1. LOCATION: Where does it hurt? Upper, under breasts, to belly button, mostly on left 2. RADIATION: Does the pain shoot anywhere else? (e.g., chest, back) Shoots into right shoulder 3. ONSET: When did the pain begin? (e.g., minutes, hours or days ago) 3 days ago, started as dull ache, no unbearable 4. SUDDEN: Gradual or sudden onset? Gradually 5. PATTERN Does the pain come and go, or is it constant? Constant 6. SEVERITY: How bad is the pain? (e.g., Scale 1-10; mild, moderate, or severe) 9 7. RECURRENT SYMPTOM: Have you ever had this type of stomach pain before? If Yes, ask: When was the last time? and What happened that time? no 8. AGGRAVATING FACTORS: Does anything seem to cause this pain? (e.g., foods, stress, alcohol) No, doesn't want to eat, vomiting dark brown, smelled fecal 9. CARDIAC SYMPTOMS: Do you have any of the following symptoms: chest pain, difficulty breathing, sweating, nausea? No chest pain, yes difficulty breathing, sweating but no fever, does have nausea 10. OTHER SYMPTOMS: Do you have any other symptoms? (e.g., back pain, diarrhea, fever, urination pain, vomiting) No fever, vomited twice, thought it was gas 11. : Is there any chance you are ? When was your last menstrual period? no Protocols used: Abdominal Pain- [id number] documented in this [facility]04-20-2025 Telephone encounter Note* Telephone Encounter - Ella Cohen RN - 07/01/2024 3:27 PM EDT S: Patient spoke with [facility] nurse regarding abdominal pain, shortness of breath B: Onset of symptoms/concern 3 days A: Patient complaining of constant 9/10 upper left abdominal pain that radiates into her right shoulder, sweating, shortness of breath. Patient states pain started about 3 days ago but was a dull ache at that time. She has nausea and lack of appetite, two episodes of vomiting. She states she vomited dark brown material that smelled fecal. 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 R: Patient understands care advice to go to ED now or call 911. Patient states she cannot leave herchild at this time, but will go as soon as she has someone to take over care. Patient strongly advised to go immediately. She advises she will go to [place]. No further needs at this time. Patient instructed to call back with new or worsening symptoms. Reason for Disposition [1] SEVERE pain (e.g., excruciating) AND [2] present > 1 hour Answer Assessment - Initial Assessment Questions 1. LOCATION: Where does it hurt? Upper, under breasts, to belly button, mostly on left 2. RADIATION: Does the pain shoot anywhere else? (e.g., chest, back) Shoots into right shoulder 3. ONSET: When did the pain begin? (e.g., minutes, hours or days ago) 3 days ago, started as dull ache, no unbearable 4. SUDDEN: Gradual or sudden onset? Gradually 5. PATTERN Does the pain come and go, or is it constant? Constant 6. SEVERITY: How bad is the pain? (e.g., Scale 1-10; mild, moderate, or severe) 9 7. RECURRENT SYMPTOM: Have you ever had this type of stomach pain before? If Yes, ask: When was the last time? and What happened that time? no 8. AGGRAVATING FACTORS: Does anything seem to cause this pain? (e.g., foods, stress, alcohol) No, doesn't want to eat, vomiting dark brown, smelled fecal 9. CARDIAC SYMPTOMS: Do you have any of the following symptoms: chest pain, difficulty breathing, sweating, nausea? No chest pain, yes difficulty breathing, sweating but no fever, does have nausea 10. OTHER SYMPTOMS: Do you have any other symptoms? (e.g., back pain, diarrhea, fever, urination pain, vomiting) No fever, vomited twice, thought it was gas 11. : Is there any chance you are ? When was your last menstrual period? no Protocols used: Abdominal Pain- [id number]-FW [facility] [id number] NoteHNO ID: [id number] Author: VANDANA HERNANDEZ RN Service: Care Management Author Type: Registered Nurse Type: Care Mgt Progress Note Filed: 05/21/2024 08:39 Note Text: CARE MANAGEMENT DISCHARGE NOTE SERVICE DATE: May 21, 2024 SERVICE TIME: 8:37 AM Admission Date: 05/15/2024 LOS: 6 days Discharge Arrangement Discharge Arrangement: Home with Self Care Caregiver Assessment Caregiver is ready, willing and able to meet the patient's needs as recommended by the inter-professional team: No Caregiver needed Transportation Arrangements Transportation Arrangements: Car Date of Trip: 05/21/24 Destination: Home Handoff Communication: Handoff to: Primary Care Physician Primary Care Physician Name/Phone: Dex Sutherland MD - [phone] Additional Information: Orders received for patient to discharge home. No skilled needs noted. Patient agreeable to discharge plan. Spouse to transport home. Bedside RN updated. SIGNATURE: Vandana Hernandez RN PATIENT NAME: Michelle Mitchell DATE: May 21, 2024 TIME: 8:37 AMToledo [id number] NoteHNO ID: [id number] Author: LUIS MIGUEL VUONG MD Service: Cardiovascular Disease Author Type: Physician Type: Progress Notes Filed: 05/20/2024 11:42 Note Text: INPATIENT CONSULT PROGRESS NOTES Patient Name: Michelle Mitchell DATE of SERVICE: 05/20/2024 TIME of SERVICE: 11:40 AM CONSULTING SERVICE: Cardiology INTERVAL HPI: Still complains of abdominal pain and waiting for ultra sound. No more chest pain or dyspnea. DRUGS REVIEWED: ASSESSMENT AND PLAN: Non cardiac chest pain HOCM and status post ICD Left leg wound/abscess Would leave her on current therapy Needs no further cardiac work up OK to discharge from cardiac point of view PHYSICAL EXAM: BP 147/73 Pulse 68 Temp 36.7 ?C (98.1 ?F) (Temporal) Resp 18 Ht 160 cm (5' 3) Wt 52.7 kg (116 lb 2.9 oz) LMP 06/12/2006 SpO2 95% BMI 20.58 kg/m? Body mass index is 20.58 kg/m?. GENERAL: Alert, no distress, cooperative NECK: No jugulovenous distention, No carotid bruits, Carotid pulse normal contour, Supple LUNGS: Lungs clear to auscultation, Good diaphragmatic excursion CARDIAC: Normal S1 and S2; no rubs, murmurs, or gallops ABDOMEN:benign, soft, flat, non-tender, no masses, normal bowel sounds NEURO: Awake, alert and oriented x 3 EXTREMITIES: Left leg cellulitis and abscess. No clubbing or skin discoloration. Good capillary refill., No ulcers PULSES: 2+ radial, 2+ carotid LABS: CBC: Recent Labs 05/20/24 0629 WBC 21.90* RBC 5.20 HB 16.3* HCT 49.3* PLT 326 MCV 94.8 MCH 31.3 MPV 9.8 CMP: Recent Labs 05/20/24 0629 NA 133* K 4.4 CHLOR 94* CO2 25 BUN 18 CREAT 0.90 GLUC 98 TPROT 7.4 CA 10.3* TBILI 0.4 ALKPHOS 228* ALT 50* AST 34 ANION 14 Cardiac Enzymes: No results for input(s): CK, MB, CKMB, TROPT in the last 24 hours. SIGNATURE: Luis Miguel Vuong MD CELL; [phone] DATE: May 20, 2024 TIME: 11:40 [facility] HospitalXdtbdgvf16-59-5656 NoteHNO ID: [id number] Author: DEX SUTHERLAND MD Service: Family Practice Author Type: Physician Type: Progress Notes Filed: 05/21/2024 08:17 Note Text: INPATIENT PROGRESS NOTES Patient Name: Michelle Mitchell DATE of SERVICE: 05/21/2024 TIME of SERVICE: 8:16 AM PRIMARY SERVICE: Family Practice INTERVAL HPI: appreciate cardiology input Maybe more epigastric? Elevated lfts Hx for cholecystectomy ASSESSMENT AND PLAN: RUQ US lipase MEDICATIONS: Current Facility-Administered Medications Medication Dose Route Frequency vancomycin 750 mg in D5W 250 mL Vial-Bag (VANCOCIN) 0.015 g/kg/dose INTRAVENOUS q 12 HR vancomycin dosing and monitoring per pharmacy OTHER As Directed ALPRAZolam 0.5 mg tab(s) (XANAX) 0.5 mg ORAL BID zolpidem 10 mg tab(s) (AMBIEN) 10 mg ORAL AT BEDTIME albuterol 2.5 mg /3 mL (0.083 %) 2.5 mg (PROVENTIL) 3 mL INHALATION q 4 H PRN vortioxetine 10 mg tab(s) (TRINTELLIX) 10 mg ORAL DAILY acetaminophen 650 mg tab(s) (TYLENOL) 650 mg ORAL q 6 H PRN ondansetron (PF) 4 mg injection (ZOFRAN) 4 mg INTRAVENOUS q 6 H PRN NaCl 0.9% iv flush bag 20 mL INTRAVENOUS PRN furosemide 40 mg injection (LASIX) 40 mg INTRAVENOUS BID 9a/5p HYDROmorphone 0.5 mg injection (DILAUDID) 0.5 mg INTRAVENOUS q 3 H PRN oxyCODONE IR 5 mg tab(s) (ROXICODONE) 5 mg ORAL q 6 H PRN Patient Vitals for the past 48 hrs: BP Temp Temp src Pulse Resp SpO2 Weight 05/21/24 08 -- -- -- 60 -- -- -- 05/21/24 06 -- -- -- -- -- -- 53.8 kg (118 lb 9.7 oz) 05/21/24 0444 102/58 36.3 ?C (97.4 ?F) Oral (!) 58 20 97 % -- 05/21/24 0400 -- -- -- 62 -- -- -- 05/21/24 0000 -- -- -- (!) 57 -- -- -- 05/20/247 113/56 36.3 ?C (97.4 ?F) Oral 61 18 96 % -- 05/20/240 112/54 36.3 ?C (97.3 ?F) Oral (!) 59 18 96 % -- 05/20/241999 -- -- -- (!) 59 -- -- -- 05/20/24 1734 133/61 -- -- -- -- -- -- 05/20/24 1600 130/70 -- -- 66 -- -- -- 05/20/24 1200 116/57 -- -- 69 -- 96 % -- 05/20/24 1157 -- 36.8 ?C (98.2 ?F) Oral -- 18 -- -- 05/20/24 0849 147/73 -- -- -- -- -- -- 05/20/24 08 -- -- -- 68 -- -- -- 05/20/24 0517 -- -- -- -- -- -- 52.7 kg (116 lb 2.9 oz) 05/20/24 0408 115/56 -- -- (!) 55 -- -- -- 05/20/24 0400 115/56 36.7 ?C (98.1 ?F) Temporal (!) 56 18 95 % -- 05/20/24 0000 121/60 36.7 ?C (98.1 ?F) Temporal 62 18 95 % -- 05/19/24 2000 116/59 36.8 ?C (98.3 ?F) Temporal 70 18 94 % -- 05/19/24 1639 120/56 -- -- -- -- -- -- 05/19/24 1600 -- -- -- 67 -- -- -- 05/19/24 1200 122/67 -- -- 69 -- -- -- 05/19/24 1129 -- 36.8 ?C (98.2 ?F) Oral -- -- -- -- PHYSICAL EXAM: GENERAL: alert, no distress, cooperative SKIN: No rashes or lesions. OROPHARYNX: Oropharynx normal. NECK: no jugulovenous distention, supple LUNGS: Lungs clear to auscultation. CARDIAC: normal S1 and S2; no rubs, murmurs, or gallops ABDOMEN: Abdomen soft, non-tender. BS normal. No masses or organomegaly. EXTREMETIES: No deformities, cyanosis, edema, clubbing or skin discoloration. NEURO: Alert, oriented X 3, Gait normal. Motor and Sensation grossly intact., DATA: CBC: Recent Labs 05/21/24 0646 WBC 12.02* RBC 5.16 HB 16.5* HCT 49.4* PLT 288 MCV 95.7 MCH 32.0 MPV 10.0 Coags: No results for input(s): PT, INR, APTT in the last 24 hours. CMP: No results for input(s): NA, K, CHLOR, CO2, BUN, CREAT, GLUC, TPROT, CA, MG, ALBUMIN, TBILI, ALKPHOS, ALT, AST, ANION in the last 24 hours. Cardiac Enzymes: No results for input(s): CK, MB, CKMB, TROPT in the last 24 hours. Liver Function, Amylase, Lipase: No results for input(s): TPROT, ALB, ALT, AST, ALKPHOS, TBILI, AMYLASE, LIPASE, LACTATE in the last 24 hours. ABG's: No results for input(s): PH, PCO2, PO2, BE, HCO3, CO2CT, O2HB, COHB, MHGB, TEMP, PHTC, PCO2T, PO2T, O2AD in the last 24 hours. MG/PHOS: No results for input(s): MG, P in the last 24 hours. Plan of care discussed with: . SIGNATURE: Dex Sutherland MD DATE: May 21, 2024 TIME: 8:16 AMToledo [id number] NoteHNO ID: [id number] Author: DEX SUTHERLAND MD Service: Family Practice Author Type: Physician Type: Progress Notes Filed: 05/19/2024 07:26 Note Text: INPATIENT PROGRESS NOTES Patient Name: Michelle Mitchell DATE of SERVICE: 05/19/2024 TIME of SERVICE: 7:24 AM PRIMARY SERVICE: Family Practice INTERVAL HPI: still having pain in chest Leg is better Needing q3h pain meds ASSESSMENT AND PLAN: Solumedrol trial Lasix bid iv as had effusion on admit Repeat cxr Cardiology consult MEDICATIONS: Current Facility-Administered Medications Medication Dose Route Frequency vancomycin 750 mg in D5W 250 mL Vial-Bag (VANCOCIN) 0.015 g/kg/dose INTRAVENOUS q 12 HR vancomycin dosing and monitoring per pharmacy OTHER As Directed ALPRAZolam 0.5 mg tab(s) (XANAX) 0.5 mg ORAL BID zolpidem 10 mg tab(s) (AMBIEN) 10 mg ORAL AT BEDTIME albuterol 2.5 mg /3 mL (0.083 %) 2.5 mg (PROVENTIL) 3 mL INHALATION q 4 H PRN vortioxetine 10 mg tab(s) (TRINTELLIX) 10 mg ORAL DAILY acetaminophen 650 mg tab(s) (TYLENOL) 650 mg ORAL q 6 H PRN ondansetron (PF) 4 mg injection (ZOFRAN) 4 mg INTRAVENOUS q 6 H PRN NaCl 0.9% iv flush bag 20 mL INTRAVENOUS PRN furosemide 40 mg injection (LASIX) 40 mg INTRAVENOUS BID 9a/5p HYDROmorphone 0.5 mg injection (DILAUDID) 0.5 mg INTRAVENOUS q 3 H PRN oxyCODONE IR 5 mg tab(s) (ROXICODONE) 5 mg ORAL q 6 H PRN Patient Vitals for the past 48 hrs: BP Temp Temp src Pulse Resp SpO2 Weight 05/19/24 0700 -- -- -- -- -- -- 52.8 kg (116 lb 6.5 oz) 05/19/24 0400 -- -- -- (!) 55 -- 97 % -- 05/19/24 0349 113/58 36.2 ?C (97.1 ?F) Temporal (!) 57 16 98 % -- 05/19/24 0000 -- -- -- 62 -- 97 % -- 05/18/24 2344 122/56 36.3 ?C (97.3 ?F) Temporal 66 18 95 % -- 05/18/24 2000 -- -- -- 64 -- 94 % -- 05/18/24 1950 122/58 36.2 ?C (97.1 ?F) Temporal 66 18 95 % -- 05/18/24 1600 -- -- -- 63 -- -- -- 05/18/24 1500 102/51 36.4 ?C (97.6 ?F) Oral 60 18 97 % -- 05/18/24 1200 -- -- -- 63 -- -- -- 05/18/24 1100 106/53 36.3 ?C (97.3 ?F) Oral 67 18 97 % -- 05/18/24 0800 -- -- -- 61 -- -- -- 05/18/24 0755 118/62 36.4 ?C (97.6 ?F) Oral 61 19 96 % -- 05/18/24 0400 -- -- -- (!) 56 -- -- 55 kg (121 lb 4.1 oz) 05/18/24 0251 115/55 36.3 ?C (97.3 ?F) Oral (!) 59 18 95 % -- 05/18/24 0000 116/57 -- -- 63 -- 96 % -- 05/17/24 2355 116/57 36.2 ?C (97.2 ?F) Oral 71 18 97 % -- 05/17/242010 108/52 36.7 ?C (98.1 ?F) Oral (!) 59 18 94 % -- 05/17/241999 -- -- -- 61 -- -- -- 05/17/24 1600 -- -- -- 61 -- -- -- 05/17/24 1422 103/59 36.5 ?C (97.7 ?F) Oral 66 16 94 % -- 05/17/24 1200 -- -- -- 69 -- -- -- 05/17/24 0800 111/53 36.3 ?C (97.4 ?F) Oral 63 16 97 % -- 05/17/24 0759 111/53 -- -- -- -- -- -- PHYSICAL EXAM: GENERAL: alert, no distress, cooperative SKIN: No rashes or lesions. OROPHARYNX: Oropharynx normal. NECK: no jugulovenous distention, supple LUNGS: Lungs clear to auscultation. CARDIAC: normal S1 and S2; no rubs, murmurs, or gallops ABDOMEN: Abdomen soft, non-tender. BS normal. No masses or organomegaly. EXTREMETIES: No deformities, cyanosis, edema, clubbing or skin discoloration. NEURO: Alert, oriented X 3, Gait normal. Motor and Sensation grossly intact., DATA: CBC: No results for input(s): WBC, RBC, HB, HCT, PLT, MCV, MCH, MPV, RDW in the last 24 hours. Coags: No results for input(s): PT, INR, APTT in the last 24 hours. CMP: No results for input(s): NA, K, CHLOR, CO2, BUN, CREAT, GLUC, TPROT, CA, MG, ALBUMIN, TBILI, ALKPHOS, ALT, AST, ANION in the last 24 hours. Cardiac Enzymes: No results for input(s): CK, MB, CKMB, TROPT in the last 24 hours. Liver Function, Amylase, Lipase: No results for input(s): TPROT, ALB, ALT, AST, ALKPHOS, TBILI, AMYLASE, LIPASE, LACTATE in the last 24 hours. ABG's: No results for input(s): PH, PCO2, PO2, BE, HCO3, CO2CT, O2HB, COHB, MHGB, TEMP, PHTC, PCO2T, PO2T, O2AD in the last 24 hours. MG/PHOS: No results for input(s): MG, P in the last 24 hours. Plan of care discussed with: . SIGNATURE: Dex Sutherland MD DATE: May 19, 2024 TIME: 7:24 AMToledo [id number] NoteHNO ID: [id number] Author: JUNIOR SPICER LISW Service: Care Management Author Type: Ceo & Co Founder Type: Care Mgt Progress Note Filed: 05/18/2024 16:52 Note Text: CARE MANAGEMENT PROGRESS NOTE SERVICE DATE: 05/18/2024 SERVICE TIME: 4:49 PM LOS: 3 days Needs Prior to Discharge: To Be Determined EMR reviewed. Possible discharge over the weekend pending pain control. Wound care following. Disposition plan remains return to home with self care/basic needs. SW/CM team will continue to follow for potential discharge needs. SIGNATURE: MYRIAM Salvador PATIENT NAME: Michelle Mitchell DATE: May 18, 2024 TIME: 4:49 PMToledo [id number] NoteHNO ID: [id number] Author: DEX SUTHERLAND MD Service: Family Practice Author Type: Physician Type: Progress Notes Filed: 05/19/2024 07:12 Note Text: INPATIENT PROGRESS NOTES Patient Name: Michelle Mitchell DATE of SERVICE: 05/19/2024 TIME of SERVICE: 7:11 AM PRIMARY SERVICE: Family Practice INTERVAL HPI: still with chest pain Leg is better ASSESSMENT AND PLAN: Oral oxy Breakthrough dilaudid Lasix iv bid Acute on Chronic Systolic and Diastolic CHF MEDICATIONS: Current Facility-Administered Medications Medication Dose Route Frequency vancomycin 750 mg in D5W 250 mL Vial-Bag (VANCOCIN) 0.015 g/kg/dose INTRAVENOUS q 12 HR vancomycin dosing and monitoring per pharmacy OTHER As Directed ALPRAZolam 0.5 mg tab(s) (XANAX) 0.5 mg ORAL BID zolpidem 10 mg tab(s) (AMBIEN) 10 mg ORAL AT BEDTIME albuterol 2.5 mg /3 mL (0.083 %) 2.5 mg (PROVENTIL) 3 mL INHALATION q 4 H PRN vortioxetine 10 mg tab(s) (TRINTELLIX) 10 mg ORAL DAILY acetaminophen 650 mg tab(s) (TYLENOL) 650 mg ORAL q 6 H PRN ondansetron (PF) 4 mg injection (ZOFRAN) 4 mg INTRAVENOUS q 6 H PRN NaCl 0.9% iv flush bag 20 mL INTRAVENOUS PRN furosemide 40 mg injection (LASIX) 40 mg INTRAVENOUS BID 9a/5p HYDROmorphone 0.5 mg injection (DILAUDID) 0.5 mg INTRAVENOUS q 3 H PRN oxyCODONE IR 5 mg tab(s) (ROXICODONE) 5 mg ORAL q 6 H PRN Patient Vitals for the past 48 hrs: BP Temp Temp src Pulse Resp SpO2 Weight 05/19/24 0700 -- -- -- -- -- -- 52.8 kg (116 lb 6.5 oz) 05/19/24 0400 -- -- -- (!) 55 -- 97 % -- 05/19/24 0349 113/58 36.2 ?C (97.1 ?F) Temporal (!) 57 16 98 % -- 05/19/24 0000 -- -- -- 62 -- 97 % -- 05/18/24 2344 122/56 36.3 ?C (97.3 ?F) Temporal 66 18 95 % -- 05/18/24 2000 -- -- -- 64 -- 94 % -- 05/18/24 1950 122/58 36.2 ?C (97.1 ?F) Temporal 66 18 95 % -- 05/18/24 1600 -- -- -- 63 -- -- -- 05/18/24 1500 102/51 36.4 ?C (97.6 ?F) Oral 60 18 97 % -- 05/18/24 1200 -- -- -- 63 -- -- -- 05/18/24 1100 106/53 36.3 ?C (97.3 ?F) Oral 67 18 97 % -- 05/18/24 0800 -- -- -- 61 -- -- -- 05/18/24 0755 118/62 36.4 ?C (97.6 ?F) Oral 61 19 96 % -- 05/18/24 0400 -- -- -- (!) 56 -- -- 55 kg (121 lb 4.1 oz) 05/18/24 0251 115/55 36.3 ?C (97.3 ?F) Oral (!) 59 18 95 % -- 05/18/24 0000 116/57 -- -- 63 -- 96 % -- 05/17/24 2355 116/57 36.2 ?C (97.2 ?F) Oral 71 18 97 % -- 05/17/242010 108/52 36.7 ?C (98.1 ?F) Oral (!) 59 18 94 % -- 05/17/241999 -- -- -- 61 -- -- -- 05/17/24 1600 -- -- -- 61 -- -- -- 05/17/24 1422 103/59 36.5 ?C (97.7 ?F) Oral 66 16 94 % -- 05/17/24 1200 -- -- -- 69 -- -- -- 05/17/24 0800 111/53 36.3 ?C (97.4 ?F) Oral 63 16 97 % -- 05/17/24 0759 111/53 -- -- -- -- -- -- PHYSICAL EXAM: GENERAL: alert, no distress, cooperative SKIN: No rashes or lesions. OROPHARYNX: Oropharynx normal. NECK: no jugulovenous distention, supple LUNGS: Lungs clear to auscultation. CARDIAC: normal S1 and S2; no rubs, murmurs, or gallops ABDOMEN: Abdomen soft, non-tender. BS normal. No masses or organomegaly. EXTREMETIES: No deformities, cyanosis, edema, clubbing or skin discoloration. NEURO: Alert, oriented X 3, Gait normal. Motor and Sensation grossly intact., DATA: CBC: No results for input(s): WBC, RBC, HB, HCT, PLT, MCV, MCH, MPV, RDW in the last 24 hours. Coags: No results for input(s): PT, INR, APTT in the last 24 hours. CMP: No results for input(s): NA, K, CHLOR, CO2, BUN, CREAT, GLUC, TPROT, CA, MG, ALBUMIN, TBILI, ALKPHOS, ALT, AST, ANION in the last 24 hours. Cardiac Enzymes: No results for input(s): CK, MB, CKMB, TROPT in the last 24 hours. Liver Function, Amylase, Lipase: No results for input(s): TPROT, ALB, ALT, AST, ALKPHOS, TBILI, AMYLASE, LIPASE, LACTATE in the last 24 hours. ABG's: No results for input(s): PH, PCO2, PO2, BE, HCO3, CO2CT, O2HB, COHB, MHGB, TEMP, PHTC, PCO2T, PO2T, O2AD in the last 24 hours. MG/PHOS: No results for input(s): MG, P in the last 24 hours. Plan of care discussed with: Provider, RN, Patient. SIGNATURE: Dex Sutherland MD DATE: May 19, 2024 TIME: 7:11 AMToledo [id number] NoteHNO ID: [id number] Author: DEX SUTHERLAND MD Service: [facility] Author Type: Physician Type: Progress Notes Filed: 05/18/2024 06:56 Note Text: INPATIENT PROGRESS NOTES Patient Name: Michelle Mitchell DATE of SERVICE: 05/18/2024 TIME of SERVICE: 6:55 AM PRIMARY SERVICE: Family Practice INTERVAL HPI: pain in chest like a band Does have some pleural effusion ASSESSMENT AND PLAN: Lasix Pain meds Possible d/c MEDICATIONS: Current Facility-Administered Medications Medication Dose Route Frequency vancomycin 750 mg in D5W 250 mL Vial-Bag (VANCOCIN) 0.015 g/kg/dose INTRAVENOUS q 12 HR vancomycin dosing and monitoring per pharmacy OTHER As Directed ALPRAZolam 0.5 mg tab(s) (XANAX) 0.5 mg ORAL BID zolpidem 10 mg tab(s) (AMBIEN) 10 mg ORAL AT BEDTIME albuterol 2.5 mg /3 mL (0.083 %) 2.5 mg (PROVENTIL) 3 mL INHALATION q 4 H PRN vortioxetine 10 mg tab(s) (TRINTELLIX) 10 mg ORAL DAILY acetaminophen 650 mg tab(s) (TYLENOL) 650 mg ORAL q 6 H PRN ondansetron (PF) 4 mg injection (ZOFRAN) 4 mg INTRAVENOUS q 6 H PRN NaCl 0.9% iv flush bag 20 mL INTRAVENOUS PRN furosemide 40 mg injection (LASIX) 40 mg INTRAVENOUS BID 9a/5p HYDROmorphone 0.5 mg injection (DILAUDID) 0.5 mg INTRAVENOUS q 3 H PRN oxyCODONE IR 5 mg tab(s) (ROXICODONE) 5 mg ORAL q 6 H PRN Patient Vitals for the past 48 hrs: BP Temp Temp src Pulse Resp SpO2 Weight 05/18/24399 -- -- -- (!) 56 -- -- 55 kg (121 lb 4.1 oz) 05/18/24 025 115/55 36.3 ?C (97.3 ?F) Oral (!) 59 18 95 % -- 05/18/24 0000 116/57 -- -- 63 -- 96 % -- 05/17/245 116/57 36.2 ?C (97.2 ?F) Oral 71 18 97 % -- 05/17/242010 108/52 36.7 ?C (98.1 ?F) Oral (!) 59 18 94 % -- 05/17/241999 -- -- -- 61 -- -- -- 05/17/24 1600 -- -- -- 61 -- -- -- 05/17/24 1422 103/59 36.5 ?C (97.7 ?F) Oral 66 16 94 % -- 05/17/24 1200 -- -- -- 69 -- -- -- 05/17/24 0800 111/53 36.3 ?C (97.4 ?F) Oral 63 16 97 % -- 05/17/24 0759 111/53 -- -- -- -- -- -- 05/17/24 0649 -- -- -- -- -- -- 54.5 kg (120 lb 2.4 oz) 05/17/24 0630 -- -- -- 64 -- -- -- 05/17/24 0600 -- -- -- (!) 58 -- -- -- 05/17/24 0500 -- -- -- 60 -- -- -- 05/17/247 -- -- -- (!) 56 -- -- -- 05/17/24 040 -- -- -- (!) 55 -- -- -- 05/17/24311 102/58 36.2 ?C (97.1 ?F) Temporal 63 16 97 % -- 05/17/24 0300 -- -- -- (!) 53 -- -- -- 05/17/24 0200 -- -- -- (!) 59 -- -- -- 05/17/24 0100 -- -- -- (!) 59 -- -- -- 05/17/24 0033 -- -- -- (!) 59 -- -- -- 05/17/24 0000 -- -- -- 67 -- -- -- 05/16/24 2326 120/62 36.4 ?C (97.5 ?F) Temporal 70 18 97 % -- 05/16/24 2000 -- -- -- 62 -- 98 % -- 05/16/24 1947 102/74 36.2 ?C (97.1 ?F) Temporal 68 18 98 % -- 05/16/24 1600 111/74 36.2 ?C (97.2 ?F) Temporal 69 18 95 % -- 05/16/24 1200 -- -- -- 62 -- 95 % -- 05/16/24 1100 106/56 36 ?C (96.8 ?F) Temporal 69 18 97 % -- 05/16/24 0800 -- -- -- 64 -- 96 % -- 05/16/24 0700 108/57 36 ?C (96.8 ?F) Temporal (!) 58 20 97 % -- PHYSICAL EXAM: GENERAL: alert, no distress, cooperative SKIN: No rashes or lesions. OROPHARYNX: Oropharynx normal. NECK: no jugulovenous distention, supple LUNGS: Lungs clear to auscultation. CARDIAC: normal S1 and S2; no rubs, murmurs, or gallops ABDOMEN: Abdomen soft, non-tender. BS normal. No masses or organomegaly. EXTREMETIES: No deformities, cyanosis, edema, clubbing or skin discoloration. NEURO: Alert, oriented X 3, Gait normal. Motor and Sensation grossly intact., DATA: CBC: No results for input(s): WBC, RBC, HB, HCT, PLT, MCV, MCH, MPV, RDW in the last 24 hours. Coags: No results for input(s): PT, INR, APTT in the last 24 hours. CMP: No results for input(s): NA, K, CHLOR, CO2, BUN, CREAT, GLUC, TPROT, CA, MG, ALBUMIN, TBILI, ALKPHOS, ALT, AST, ANION in the last 24 hours. Cardiac Enzymes: No results for input(s): CK, MB, CKMB, TROPT in the last 24 hours. Liver Function, Amylase, Lipase: No results for input(s): TPROT, ALB, ALT, AST, ALKPHOS, TBILI, AMYLASE, LIPASE, LACTATE in the last 24 hours. ABG's: No results for input(s): PH, PCO2, PO2, BE, HCO3, CO2CT, O2HB, COHB, MHGB, TEMP, PHTC, PCO2T, PO2T, O2AD in the last 24 hours. MG/PHOS: No results for input(s): MG, P in the last 24 hours. Plan of care discussed with: . SIGNATURE: Dex Sutherland MD DATE: May 18, 2024 TIME: 6:55 [facility] [id number] NoteHNO ID: [id number] Author: ALEXANDRIA COLE LSW Service: Care Management Author Type: Ceo & Co Founder Type: Care Mgt Initial Assessment Filed: 05/16/2024 12:57 Note Text: CARE MANAGEMENT: ASSESSMENT AND DISCHARGE PLAN SERVICE DATE: May 16, 2024 SERVICE TIME: 12:53 PM PCP: Dex Sutherland MD-verified Primary Contact: Extended Emergency Contact Information Primary Emergency Contact: Babar Mitchell Address: [address] [place] [address]/[address] OF [facility] Mobile Relation: Spouse Admission Status: Inpatient Insurance Provider: [employer] PPO Discharge Planning requested by: Per Department Practice Potential Transition Plans Home, To Be Determined Advance Directives Current Advance Directive: None Aeronautical Inspector Attempted to Assist with AD Completion: Yes Action: Education Provided Current Living Arrangements and Support Lives with: Spouse/significant other Type of Residence: Private Residence (House) Does the patient have to climb stairs at home?: Yes, stairs outside the home, stairs within the home Support: Spouse/significant other, Family members How do you manage to accomplish the following: Independent: Ambulation, Bathe/Shower, Dress, Meals/Meal Prep, Going to the bathroom, Medication Management, Transportation to appointments/community Current Services/Equipment Current Post-Acute Service(s): None Discharge Planning Patient Goal(s): General wellness, Be able to go home, Less pain [place] of Choice Explained: [place] of Choice Given: No Reason Not Given: No placements necessary Are you interested in bedside delivery of your medications? No Discharge Planning Participant(s): Patient Patient/Family Comments: Pt. would like to return home w/spouse. Caregiver Assessment: Caregiver is ready, willing and able to meet the patient's needs as recommended by the inter-professional team: No Caregiver needed Transport at Discharge: Transportation Arrangements: To Be Determined Needs Prior to Discharge: Needs Prior to Discharge: To Be Determined Post-Acute Discharge Plan: SW reviewed EMR and met w/pt. Bedside to complete an assessment. Pt. Has been admitted with Abscess of L. Leg and an Abnormal CXR. Pt. Also with a hx. Of ICD placement. CT Chest ordered. IANDD completed in ED. Pt. Remains on RA. Pt. 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 Spouse to transport home when medically ready for discharge. SIGNATURE: Alexandria Cole FACILITY TECHNICIAN, PERSONNEL WORKER PATIENT NAME: Michelle Mitchell DATE: May 16, 2024 TIME: 12:53 PMToledo [id number] NoteHNO ID: [id number] Author: DEX SUTHERLAND MD Service: Family Practice Author Type: Physician Type: Progress Notes Filed: 05/16/2024 08:04 Note Text: INPATIENT PROGRESS NOTES Patient Name: Michelle Mitchell DATE of SERVICE: 05/16/2024 TIME of SERVICE: 8:00 AM PRIMARY SERVICE: Family Practice INTERVAL HPI: doing better No fevers IANDD done in ER Gram+ ASSESSMENT AND PLAN: Cellulitis and abscess of the left calf Hx of HOCM with implanted ICD Ct chest pending MEDICATIONS: Current Facility-Administered Medications Medication Dose Route Frequency vancomycin 750 mg in D5W 250 mL Vial-Bag (VANCOCIN) 0.015 g/kg/dose INTRAVENOUS q 12 HR vancomycin dosing and monitoring per pharmacy OTHER As Directed ALPRAZolam 0.5 mg tab(s) (XANAX) 0.5 mg ORAL BID zolpidem 10 mg tab(s) (AMBIEN) 10 mg ORAL AT BEDTIME albuterol 2.5 mg /3 mL (0.083 %) 2.5 mg (PROVENTIL) 3 mL INHALATION q 4 H PRN vortioxetine 10 mg tab(s) (TRINTELLIX) 10 mg ORAL DAILY acetaminophen 650 mg tab(s) (TYLENOL) 650 mg ORAL q 6 H PRN HYDROmorphone 0.5 mg injection (DILAUDID) 0.5 mg INTRAVENOUS q 6 H PRN ondansetron (PF) 4 mg injection (ZOFRAN) 4 mg INTRAVENOUS q 6 H PRN Patient Vitals for the past 48 hrs: BP Temp Temp src Pulse Resp SpO2 Height Weight 05/16/24 0700 108/57 36 ?C (96.8 ?F) Temporal (!) 58 20 97 % -- -- 05/16/24 0600 -- -- -- 62 -- -- -- -- 05/16/24 0534 -- -- -- (!) 56 -- -- -- -- 05/16/24 0514 99/53 36.4 ?C (97.5 ?F) Temporal 60 20 97 % -- 54.6 kg (120 lb 5.9 oz) 05/16/24 0500 -- -- -- (!) 57 -- -- -- -- 05/16/24 0400 -- -- -- (!) 59 -- -- -- -- 05/16/24 0300 -- -- -- 66 -- -- -- -- 05/16/24 0200 -- -- -- 66 -- -- -- -- 05/16/24 0000 110/53 36.4 ?C (97.6 ?F) Temporal 61 20 96 % -- -- 05/15/241999 124/66 36.4 ?C (97.6 ?F) Temporal 70 20 96 % -- -- 05/15/241816 149/96 36.6 ?C (97.8 ?F) Temporal 84 20 96 % 160 cm (5' 3) 54.3 kg (119 lb 11.4 oz) 05/15/24 1730 -- -- -- -- 20 -- -- -- 05/15/24 1715 -- -- -- -- 20 -- -- -- 05/15/24 1705 -- -- -- -- 20 -- -- -- 05/15/24 1700 -- -- -- -- 20 -- -- -- 05/15/24 1645 -- -- -- -- 20 -- -- -- 05/15/24 1630 122/65 -- -- 70 17 97 % -- -- 05/15/24 1530 124/59 -- -- 66 23 (!) 94 % -- -- 05/15/24 1515 114/58 -- -- 66 18 95 % -- -- 05/15/24 1500 122/58 -- -- 68 (!) 25 (!) 94 % -- -- 05/15/24 1445 123/60 -- -- 67 22 96 % -- -- 05/15/24 1430 114/57 -- -- 68 (!) 25 96 % -- -- 05/15/24 1415 119/66 -- -- 69 (!) 26 95 % -- -- 05/15/24 1400 120/67 -- -- 64 (!) 31 96 % -- -- 05/15/24 1345 125/70 -- -- 66 (!) 27 96 % -- -- 05/15/24 1330 118/63 -- -- 65 (!) 26 97 % -- -- 05/15/24 1315 112/56 -- -- 66 24 96 % -- -- 05/15/24 1300 121/56 -- -- 65 (!) 27 96 % -- -- 05/15/24 1245 118/59 -- -- 68 (!) 26 96 % -- -- 05/15/24 1230 123/65 -- -- 71 20 96 % -- -- 05/15/24 1215 134/64 -- -- 72 22 96 % -- -- 05/15/24 1200 125/62 -- -- 71 21 96 % -- -- 05/15/24 1147 138/89 -- -- 77 (!) 28 97 % 162.4 cm (5' 3.94) -- 05/15/24 1145 138/89 -- -- 75 23 98 % -- -- 05/15/24 1130 132/79 -- -- 76 -- 98 % -- -- 05/15/24 1115 136/84 -- -- -- -- -- -- -- 05/15/24 1056 127/74 36.8 ?C (98.2 ?F) Oral 81 16 99 % -- 56.2 kg (124 lb) PHYSICAL EXAM: GENERAL: alert, no distress, cooperative SKIN: No rashes or lesions. OROPHARYNX: Oropharynx normal. NECK: no jugulovenous distention, supple LUNGS: Lungs clear to auscultation. CARDIAC: normal S1 and S2; no rubs, murmurs, or gallops ABDOMEN: Abdomen soft, non-tender. BS normal. No masses or organomegaly. EXTREMETIES: No deformities, cyanosis, edema, clubbing or bandage with drainage NEURO: Alert, oriented X 3, Gait normal. Motor and Sensation grossly intact., DATA: CBC: Recent Labs 05/16/24 0602 WBC 6.77 RBC 3.91 HB 12.6 HCT 37.8 PLT 234 MCV 96.7 MCH 32.2 MPV 10.5 Coags: Recent Labs 05/15/24 1125 INR 1.1 APTT 28.2 CMP: Recent Labs 05/16/24 0602 NA 137 K 4.4 CHLOR 105 CO2 22 BUN 12 CREAT 0.82 GLUC 79 TPROT 6.0* CA 8.9 TBILI 0.7 ALKPHOS 212* ALT 49* AST 57* ANION 10 Cardiac Enzymes: No results for input(s): CK, MB, CKMB, TROPT in the last 24 hours. Liver Function, Amylase, Lipase: Recent Labs 05/16/24 0602 TPROT 6.0* ALB 3.6* ALT 49* AST 57* ALKPHOS 212* TBILI 0.7 ABG's: No results for input(s): PH, PCO2, PO2, BE, HCO3, CO2CT, O2HB, COHB, MHGB, TEMP, PHTC, PCO2T, PO2T, O2AD in the last 24 hours. MG/PHOS: No results for input(s): MG, P in the last 24 hours. Plan of care discussed with: . SIGNATURE: Dex Sutherland MD DATE: May 16, 2024 TIME: 8:00 AMTol[facility] [id number] NoteHNO ID: [id number] Author: GIULIANO LEZAMA APRN.CNP Service: General Internal Medicine Author Type: Nurse Practitioner Type: Progress Notes Filed: 05/15/2024 19:01 Note Text: INTERNAL MEDICINE PROGRESS NOTE SERVICE DATE: 05/15/2024 SERVICE TIME: 1829 Primary Attending: Dex Anderson MD Subjective CHIEF COMPLAINT: Abscess (Left leg abscess since , put on abx at OSH. Worsening pain and increase in size. Associated nausea.) HPI: This is a 43 year old female with a past medical history significant for HOCM (s/p ICD in 2006, lead revision 2008, explant/reimplant 10/19/2016), pericarditis, gerd, PE 2016, endometrial/ovarian epithelial cancer, and breast cancer s/p left mastectomy. Pt presented to the ER for left leg abscess. Pt reports abscess started on . Pt was [facility] on Tuesday and started on Bactrim, however area has progressed to become more swollen and painful. Pt reporting fever/chills/body aches, as well as dry cough and sob. ER work up: EKG showed NSR with ESTEVAN and biventricular hypertrophy. CXR with suspected bilateral consolidation. Blood work showed no leukocytosis. CMP is mostly unremarkable. NT pro bnp 2616. HS trop 22, 22, 24. IANDD of abscessed area was completed in ER. Blood cultures and wound culture were completed. Pt was given dilaudid x2, fentanyl, and zofran. She was started on IV vancomycin. PAST MEDICAL HISTORY Diagnosis Date Breast cancer (HCC) Age 17 treated with radiation, lumpectomy and masectomy CIS (carcinoma in situ of cervix) Colon polyp 07/2015 Congestive heart failure (HCC) HOCM DVT (deep venous thrombosis) (HCC) Endometrial cancer (HCC) treated with ablation Gastroesophageal reflux disease 08/17/2017 GERD (gastroesophageal reflux disease) Hypertr obst cardiomyop ICD (implantable cardiac defibrillator) battery depletion Kidney stone Migraine Ovarian epithelial cancer (HCC) This diagnosis unlikely as both ovaries present 05/09/2018 laparoscopy Pericarditis PUD (peptic ulcer disease) Pulmonary embolism (HCC) 11/2016 Vaginal Pap smear with ASC-US 12/2016 Prior to Admission Medications Prescriptions Last Dose Informant Patient Reported? Taking? ALPRAZolam (XANAX) 0.5 mg tablet 05/15/2024 Yes Yes Sig: Take 0.5 mg by mouth twice daily. albuterol HFA (VENTOLIN HFA) 90 mcg/actuation inhaler Yes Yes Sig: Inhale 2 Puffs as instructed every 4 hours as needed for wheezing/shortness of breath. vortioxetine (TRINTELLIX) 10 mg tablet 05/15/2024 Yes Yes Sig: Take 10 mg by mouth once daily. zolpidem (AMBIEN) 10 mg Tab Yes Yes Sig: Take 10 mg by mouth daily at bedtime. Facility-Administered Medications: None Review of Systems Constitutional: Positive for chills, fatigue and fever. HENT: Negative. Eyes: Negative. Respiratory: Positive for cough and shortness of breath. Cardiovascular: Positive for chest pain. Gastrointestinal: Negative. Endocrine: Negative. Genitourinary: Negative. Musculoskeletal: Negative. Skin: Positive for wound. Neurological: Negative. Psychiatric/Behavioral: Negative. Objective Physical Exam Constitutional: General: She is not in acute distress. Appearance: Normal appearance. HENT: Head: Normocephalic. Eyes: Extraocular Movements: Extraocular movements intact. Cardiovascular: Rate and Rhythm: Normal rate and regular rhythm. Pulses: Normal pulses. Heart sounds: Normal heart sounds. Pulmonary: Effort: Pulmonary effort is normal. Breath sounds: Normal breath sounds. Abdominal: General: Bowel sounds are normal. Palpations: Abdomen is soft. Tenderness: There is no abdominal tenderness. Musculoskeletal: Right lower leg: No edema. Left lower leg: No edema. Skin: General: Skin is warm and dry. Comments: Left calf abscess with dressing intact; area circled Neurological: General: No focal deficit present. Mental Status: She is alert. Psychiatric: Attention and Perception: Attention normal. Mood and Affect: Mood normal. Speech: Speech normal. Behavior: Behavior normal. Behavior is cooperative. Cognition and Memory: Memory normal. Patient Vitals for the past 24 hrs: BP Temp Temp src Pulse Resp SpO2 Height Weight 05/15/24 1817 149/96 36.6 ?C (97.8 ?F) Temporal 84 20 96 % 160 cm (5' 3) 54.3 kg (119 lb 11.4 oz) 05/15/24 1730 -- -- -- -- 20 -- -- -- 05/15/24 1715 -- -- -- -- 20 -- -- -- 05/15/24 1705 -- -- -- -- 20 -- -- -- 05/15/24 1700 -- -- -- -- 20 -- -- -- 05/15/24 1645 -- -- -- -- 20 -- -- -- 05/15/24 1630 122/65 -- -- 70 17 97 % -- -- 05/15/24 1530 124/59 -- -- 66 23 (!) 94 % -- -- 05/15/24 1515 114/58 -- -- 66 18 95 % -- -- 05/15/24 1500 122/58 -- -- 68 (!) 25 (!) 94 % -- -- 05/15/24 1445 123/60 -- -- 67 22 96 % -- -- 05/15/24 1430 114/57 -- -- 68 (!) 25 96 % -- -- 05/15/24 1415 119/66 -- -- 69 (!) 26 95 % -- -- 05/15/24 1400 120/67 -- -- 64 (!) 31 96 % -- -- 05/15/24 1345 125/70 -- -- 66 (!) 27 96 % -- (more content not included)... [facility] [id number] XsvnANLD-LDX-4 (AGENT OF COVID-19) RNA: Not detected INFLUENZA A RNA: Not detected INFLUENZA B RNA: Not detected RESPIRATORY SYNCYTIAL VIRUS (RSV) RNA: Not detectedToledo HospitalComment on above:Performed By: #### [id number] ####[facility]ORY[facility] [id number] [place] [address] [place] [id number] Evaluation note* Diagnosis Onset Date Resolution Status Admit Date Hypertrophic cardiomyopathy acute March 28, 2024 11:28am ICD (implantable cardioverter-defibrillator) in place acute March 28 11:28am [facility] Work Phone: 1(601) 290-168001-15-2025 Evaluation note* Diagnosis Onset Date Resolution Status Admit Date Hypertrophic cardiomyopathy acute March 28, 2024 11:28am ICD (implantable cardioverter-defibrillator) in place acute March 28 11:28am Abdominal pain acute June 1:06pm Hypertrophic cardiomyopathy acute July 04, 2024 11:17am ICD (implantable cardioverter-defibrillator) in place acute July 04, 2024 11:17am Pacemaker acute July 04 11:17am Hypertrophic cardiomyopathy acute July 10, 2024 1:28pm ICD (implantable cardioverter-defibrillator) in place acute July 10, 2024 1:28pm Abdominal pain acute July 12, 025 9:45am GERD (gastroesophageal reflu x disease) acute July 12, 2024 9: 45am Abdominal pain acute July 20, 025 11:40pm Elevated troponin acute July 11:40pm Heart failure of unknown etiology acute July 20, 2024 11 :40pm Hypertrophic cardiomyopathy acute July 20, 2024 11:40pm ICD (implantable cardioverter-defibrillator) in place acute July 20, 2024 11 :40pm Leukocytosis acute July 20 11:40pm Nausea & vomiting acute July 11:40pm Pacemaker acute July 20, 2024 11:40pm [facility] Work Phone: 1([phone]) 853-694301-15-2025 Evaluation note* Diagnosis Onset Date Resolution Status Admit Date Hypertrophic cardiomyopathy acute March 28, 2024 11:28am ICD (implantable cardioverter-defibrillator) in place acute March 28 11:28am Abdominal pain acute June 1:06pm Hypertrophic cardiomyopathy acute July 04, 2024 11:17am ICD (implantable cardioverter-defibrillator) in place acute July 04, 2024 11:17am Pacemaker acute July 04 11:17am Hypertrophic cardiomyopathy acute July 10, 2024 1:28pm ICD (implantable cardioverter-defibrillator) in place acute July 10, 2024 1:28pm Abdominal pain acute July 12, 025 9:45am GERD (gastroesophageal reflu x disease) acute July 12, 2024 9: 45am (HFpEF) heart failure with preserved ejection fraction acute July 21, 2024 12:26am Abdominal pain acute July 21, 2024 12:26am Acute systolic congestive he art failure, NYHA class 3 acute July 21, 2024 12:26am Elevated troponin acute July 12:26am Heart failure of unknown etiology acute July 21, 2024 1 2:26am Hemorrhagic gastritis acute July 21, 2024 12:26am HFrEF (heart failure with reduced ejection fraction) acute July 122024 12:26am History of hypertrophic cardiomyopathy acute July 21, 2024 1 2:26am Hypertrophic cardiomyopathy acute July 21, 2024 12:26am ICD (implantable cardioverter-defibrillator) in place acute July 21, 2024 1 2:26am Leukocytosis acute July 21 12:26am Nausea & vomiting acute July 12:26am Pacemaker acute July 21, 2024 12:26am Presence of implantable cardioverter-defibrillator (ICD) acute July 21, 2024 1 2:26am Pulmonary hypertension acute 2024 12:26am Severe pulmonary hypertension acute July 21, 2024 12:26am Vegetation of heart valve acute July 21, 2024 12:26am Hypertension chronic July 21 12:26am [facility] Work Phone: 1(212) 384-917008-19-2024 Evaluation + Plan noteExtracted from: Title:Clinical Document Author:VICTOR M ORTIZ Date:10/31/23 WHEELER ADMISSION HISTORY AN D PHYSICIAL CHIEF COMPLAINT: HISTORY OF PRESENT ILLNESS: REVIEW OF SYSTEMS: ACTIVE PROBLEMS: (5) Anxiety associated with depression (245029225) Hypertrophic cardiomyopathy (325170000) IBS (irritable bowel syndrome) (86982429) Rectal bleeding (829935428) Tobacco use ([id number]) MEDICATIONS: Active Inpt Meds: None Active PRN Meds: None One Time Meds: None Active IV Meds: Lactated Ringers Infusion 1,000 mL (LR 1,000 mL) Start: 10/31/23 9:47:00 EDT, Rate: 50 mL/hr, 10/31/23 9:47:00 EDT ALLERGIES: (3) codeine morphine Zithromax FAMILY HISTORY: SOCIAL HISTORY: PHYSICAL EXAM: VITALS: MmffaoCqupIQEjjbcOUAaY2OOD0TmniMt(kg) 10/30 10:0436.6--006805CC90/19 57.0 24 Hr Tmax: 36.6 at 10/30 10:04 36 Hr Tmax: 36.6 at 10/30 10:04 Vital Signs are the last 5 in the past 48 hours. Weights display the last 5 within 7 days. Initial Wt: 10/30 57.0 kg 125 lb Current Wt: 10/30 57.0 kg 125 lb GENERAL: HEENT: CARDIOVASCULAR: RESPIRATORY: ABDOMEN: EXREMETIES: NEUROLOGICAL: PSYCHIATRIC: LABS: No 36hr Lab Data DIAGNOSTICS: IMPRESSION: PLAN: History and Physical Update I have examined the patient; reviewed the H&P and there are no changes to the H&P unless noted below. Extracted from: Title:Clinical Document Author:VICTOR M ORTIZ Date:10/31/23 WHEELER ADMISSION HISTORY AN D PHYSICIAL CHIEF COMPLAINT: HISTORY OF PRESENT ILLNESS: REVIEW OF SYSTEMS: ACTIVE PROBLEMS: (5) Anxiety associated with depression (213669295) Hypertrophic cardiomyopathy (786671396) IBS (irritable bowel syndrome) (45426719) Rectal bleeding (174730571) Tobacco use ([id number]) MEDICATIONS: Active Inpt Meds: None Active PRN Meds: None One Time Meds: None Active IV Meds: Lactated Ringers Infusion 1,000 mL (LR 1,000 mL) Start: 10/31/23 9:47:00 EDT, Rate: 50 mL/hr, 10/31/23 9:47:00 EDT ALLERGIES: (3) codeine morphine Zithromax FAMILY HISTORY: SOCIAL HISTORY: PHYSICAL EXAM: VITALS: BeubcfSqymKCEmbokSORsV6HGY8GozlLn(kg) 10/30 10:0436.6--765623KK12/19 57.0 24 Hr Tmax: 36.6 at 10/30 10:04 36 Hr Tmax: 36.6 at 10/30 10:04 Vital Signs are the last 5 in the past 48 hours. Weights display the last 5 within 7 days. Initial Wt: 10/30 57.0 kg 125 lb Current Wt: 10/30 57.0 kg 125 lb GENERAL: HEENT: CARDIOVASCULAR: RESPIRATORY: ABDOMEN: EXREMETIES: NEUROLOGICAL: PSYCHIATRIC: LABS: No 36hr Lab Data DIAGNOSTICS: IMPRESSION: PLAN: History and Physical Update I have examined the patient; reviewed the H&P and there are no changes to the H&P unless noted below. [facility] Latishadelmi Laura 08-19-2024 Hospital Discharge instructions Patient Education 10/31/2023 10:43:03 Moderate Conscious Sedation, Adult, Care After Moderate Conscious Sedation, Adult, Care After These instructions provide you with information about caring for yourself after your procedure. Your health care provider may also give you more specific instructions. Your treatment has been plannedaccording to current medical practices, but problems sometimes occur. Call your health care provider if you have any problems or questions after your procedure. What can I expect after the procedure? After your procedure, it is common: To feel sleepy for several hours. To feel clumsy and have poor balance for several hours. To have poor judgment for several hours. To vomit if you eat too soon. Follow these instructions at home: For at least 24 hours after the procedure: Do not: ?Participate in activities where you could fall or become injured. ?Drive. ?Use heavy machinery. ?Drink alcohol. ?Take sleeping pills or medicines that cause drowsiness. ?Make important decisions or sign legal documents. ?Take care of children on your own. Rest. Eating and drinking Follow the diet recommended by your health care provider. If you vomit: ?Drink water, juice, or soup when you can drink without vomiting. ?Make sure you have little or no nausea before eating solid foods. General instructions Have a responsible adult stay with you until you are awake and alert. Take rbuy-add-yzxdsoa and prescription medicines only as told by your health care provider. If you smoke, do not smoke without supervision. Keep all follow-up visits as told by your health care provider. This is important. Contact a health care provider if: You keep feeling nauseous or you keep vomiting. You feel light-headed. You develop a rash. You have a fever. Get help right away if: You have trouble breathing. This information is not intended to replace advice given to you by your health care provider. Make sure you discuss any questions you have with your health care provider. Document Released: 12/19/2013 Document Revised: 02/10/2018 Document Reviewed: 06/19/2016 Elsevier Patient Education 2020 [employer]. 10/31/2023 10:42:58 Colonoscopy, Adult, Care After, Bith-be-Ylbu Colonoscopy, Adult, Care After This sheet gives you information about how to care for yourself after your procedure. Your doctor may also give you more specific instructions. If you have problems or questions, call your doctor. What can I expect after the procedure? After the procedure, it is common to have: A small amount of blood in your poop for 24 hours. Some gas. Mild cramping or bloating in your belly. Follow these instructions at home: General instructions For the first 24 hours after the procedure: ?Do not drive or use machinery. ?Do not sign important documents. ?Do not drink alcohol. ?Do your daily activities more slowly than normal. ?Eat foods that are soft and easy to digest. Take mvpa-isc-uxlpaze or prescription medicines only as told by your doctor. To help cramping and bloating: Try walking around. Put heat on your belly (abdomen) as told by your doctor. Use a heat source that your doctor recommends, such as a moist heat pack or a heating pad. ?Put a towel between your skin and the heat source. ?Leave the heat on for 20 30 minutes. ?Remove the heat if your skin turns bright red. This is especially important if you cannot feel pain, heat, or cold. You can get burned. Eating and drinking Drink enough fluid to keep your pee (urine) clear or pale yellow. Return to your normal diet as told by your doctor. Avoid heavy or fried foods that are hard to digest. Avoid drinking alcohol for as long as told by your doctor. Contact a doctor if: You have blood in your poop (stool) 2 3 days after the procedure. Get help right away if: You have more than a small amount of blood in your poop. You see large clumps of tissue (blood clots) in your poop. Your belly is swollen. You feel sick to your stomach (nauseous). You throw up (vomit). You have a fever. You have belly pain that gets worse, and medicine does not help your pain. Summary After the procedure, it is common to have a small amount of blood in your poop. You may also have mild cramping and bloating in your belly. For the first 24 hours after the procedure, do not drive or use machinery, do not sign important documents, and do not drink alcohol. Get help right away if you have a lot of blood in your poop, feel sick to your stomach, have a fever, or have more belly pain. This information is not intended to replace advice given to you by your health care provider. Make sure you discuss any questions you have with your health care provider. Document Released: 04/02/2011 Document Revised: 12/29/2017 Document Reviewed: 11/22/2016 [employer] Patient Education 2020 [employer]. Follow Up Care 10/13/2023 09:56:55 With:VICTOR M ORTIZ MD [address] [facility] [address] [place] [address]- [phone] When: Unknown Comments:The office will call within 2 weeks with pathology results and a follow up visit will be scheduled. [facility] 08-19-2024 Summary of episode note Discharge Instructions Thank you for allowing [facility] to assist you with your healthcare needs. The following is importantdischarge information regarding your hospital visit. Your Care Team DEX SUTHERLAND MD What to do next Follow Up Appointments Follow Up with VICTOR M ORTIZ MD [address] [facility] [address] [place] [address] [phone] Additional Information: The office will call within 2 weeks with pathology results and a follow up visit will be scheduled. The Following Activity and Diet Have Been Ordered for You Discharge Activity - Ordered -- NO activity restrictions, 10/31/23 10:28:00 EDT Discharge Diet - Ordered -- Follow the post-operative/post-procedure diet instructions provided by your physician's office.,10/31/23 10:28:00 EDT Someone Will Contact You Regarding These Home Health Referrals No home referrals have been ordered for you. No one will call you. Allergies Zithromax codeine morphine Medications Please ask your primary doctor or pharmacist before taking any other medication not listed, including over the counter drugs, herbal medications, vitamins and or supplements as they may interact withyour home medications. What How Much When Instructions Last Dose Unchanged ALPRAZolam (ALPRAZolam 0.5 mg oral tablet) 1 tab(s) by mouth Three (3) times a day as needed for for anxiety Unchanged methscopolamine (methscopolamine 5 mg oral tablet) 1 tab(s) TAKE 1 TABLET BY MOUTH 2 TIMES A DAY Unchanged traZODone (traZODone 50 mg oral tablet) 1 tab(s) by mouth Daily at bedtime Unchanged zolpidem (zolpidem 10 mg oral tablet) 1 tab(s) by mouth Daily at bedtime as needed for for sleep Please take this list to your next doctor s visit. Bring all medications you take, including over the counter medications, herbals and other supplements with you to your doctor s visit. Patients and families are reminded to discard old lists and to update any records with all medication providers or retail pharmacies. Education Materials Moderate Conscious Sedation, Adult, Care After These instructions provide you with information about caring for yourself after your procedure. Your health care provider may also give you more specific instructions. Your treatment has been plannedaccording to current medical practices, but problems sometimes occur. Call your health care provider if you have any problems or questions after your procedure. What can I expect after the procedure? After your procedure, it is common: To feel sleepy for several hours. To feel clumsy and have poor balance for several hours. To have poor judgment for several hours. To vomit if you eat too soon. Follow these instructions at home: For at least 24 hours after the procedure: Do not: ? Participate in activities where you could fall or become injured. ? Drive. ? Use heavy machinery. ? Drink alcohol. ? Take sleeping pills or medicines that cause drowsiness. ? Make important decisions or sign legal documents. ? Take care of children on your own. Rest. Eating and drinking Follow the diet recommended by your health care provider. If you vomit: ? Drink water, juice, or soup when you can drink without vomiting. ? Make sure you have little or no nausea before eating solid foods. General instructions Have a responsible adult stay with you until you are awake and alert. Take cobi-lvf-cprrgsy and prescription medicines only as told by your health care provider. If you smoke, do not smoke without supervision. Keep all follow-up visits as told by your health care provider. This is important. Contact a health care provider if: You keep feeling nauseous or you keep vomiting. You feel light-headed. You develop a rash. You have a fever. Get help right away if: You have trouble breathing. This information is not intended to replace advice given to you by your health care provider. Make sure you discuss any questions you have with your health care provider. Document Released: 12/19/2013 Document Revised: 02/10/2018 Document Reviewed: 06/19/2016 [employer] Patient Education 2020 [employer]. Colonoscopy, Adult, Care After This sheet gives you information about how to care for yourself after your procedure. Your doctor may also give you more specific instructions. If you have problems or questions, call your doctor. What can I expect after the procedure? After the procedure, it is common to have: A small amount of blood in your poop for 24 hours. Some gas. Mild cramping or bloating in your belly. Follow these instructions at home: General instructions For the first 24 hours after the procedure: ? Do not drive or use machinery. ? Do not sign important documents. ? Do not drink alcohol. ? Do your daily activities more slowly than normal. ? Eat foods that are soft and easy to digest. Take mboa-wkh-fvzrvdk or prescription medicines only as told by your doctor. To help cramping and bloating: Try walking around. Put heat on your belly (abdomen) as told by your doctor. Use a heat source that your doctor recommends, such as a moist heat pack or a heating pad. ? Put a towel between your skin and the heat source. ? Leave the heat on for 20 30 minutes. ? Remove the heat if your skin turns bright red. This is especially important if you cannot feel pain, heat, or cold. You can get burned. Eating and drinking Drink enough fluid to keep your pee (urine) clear or pale yellow. Return to your normal diet as told by your doctor. Avoid heavy or fried foods that are hard to digest. Avoid drinking alcohol for as long as told by your doctor. Contact a doctor if: You have blood in your poop (stool) 2 3 days after the procedure. Get help right away if: You have more than a small amount of blood in your poop. You see large clumps of tissue (blood clots) in your poop. Your belly is swollen. You feel sick to your stomach (nauseous). You throw up (vomit). You have a fever. You have belly pain that gets worse, and medicine does not help your pain. Summary After the procedure, it is common to have a small amount of blood in your poop. You may also have mild cramping and bloating in your belly. For the first 24 hours after the procedure, do not drive or use machinery, do not sign important documents, and do not drink alcohol. Get help right away if you have a lot of blood in your poop, feel sick to your stomach, have a fever, or have more belly pain. This information is not intended to replace advice given to you by your health care provider. Make sure you discuss any questions you have with your health care provider. Document Released: 04/02/2011 Document Revised: 12/29/2017 Document Reviewed: 11/22/2016 [employer] Patient Education 2020 [employer] Additional Information VACCINATE! IT SAVES LIVES! Members of the community who have not yet received the COVID-19 vaccine and would like to receive it can visit one of [facility] vaccine clinics. There are many vaccine clinic locations within the [facility]. For locations and available times, please visit [email or web address].gov/. It is important to note that some COVID mobile vaccine clinics are held outdoors and may be canceled in rainy or stormy conditions. To learn more about pediatric vaccinations (ages 5-11), we invite you to visit the [facility] webpage. [email or web address]/[email or web address] [email or web address] learn more about the COVID-19 vaccine, we invite you to visit the CDC website for a list of frequently asked questions.https://www.cdc.gov/coronavirus/2019-ncov/vaccines/faq.html [employer] Patient Portal Access Instructions: Stay connected with your healthcare team and access your personal medical information anytime with the [employer] Patient Portal. Please follow the directions below to create your [employer] account: 1.Access the email account you provided upon registration to the hospital/physician office.2.Look for an invitation email from [facility].3.Open the email and access the invitation link: AcceptInvitation to [employer].4.Fill in the required pandey to create your account. To access your account, visit [email or web address]. Click the blue button labeled Access Patient Portal and then log in with the username and password that you created in the steps above. You will be able to view your test results, lab results, a summary of your visits, upcoming appointments and more. There is also a convenient messaging option where you can send secure messages to your p rovider. In addition, you will have the ability to download any documents or summaries to your computer and/or send the information securely to a physician. Remember that your healthcare information is confidential, so carefully consider who you will allowto register on the [facility] Patient Portal for access to your information. You can also access the [facility] Patient Portal on the [facility] johanna. Simply click on Patient Portal and then log into your account. If you would like to receive a full copy of your medical records, please contact the [facility] Medical Records Department by calling [phone], Tuesday through Tuesday between 8 a.m. and 4:30 p.m. HOW TO SAFELY DISPOSE OF PRESCRIPTION MEDICATIONS Please use one of the following methods to safely dispose of your unused medications. 1.Use a drug disposal kit: the drug disposal pouch allows you to safely discard your old and unuseddrugs. Ask your nurse to give you one when you are discharged.2.Visit a local take-back location: Many local pharmacies and police departments have programs that collect old and unwanted prescriptiondrugs. Call your local pharmacy or go to http://WePopp.ClearStory Data/8P7Fq5d to find one close to you.3.Make use of household items: Use cat litter or old coffee grounds to dispose medications if other options arenot available. Mix your drugs with these household products, seal them in an airtight container andthrow it into the garbage. Call [facility]: [phone] to be sure your drugs can be disposed of in this way. Some medicines may require a different approach.4.Never flush your medications down the toilet. IF YOU HAVE BEEN PRESCRIBED AN OPIOID FOR PAIN If you have been prescribed an opioid (such as hydrocodone, oxycodone or morphine), it is critical to understand the possible side effects and risks of opioid pain medications. Even when taken as directed, opioids can have several side effects including: Tolerance, meaning you might need to take more of a medication for the same pain relief. Nausea, vomiting and/or constipation. Sleepiness, dizziness, dry mouth, confusion, depression or itching. Physical dependence, meaning you have withdrawal symptoms when a medication is stopped, can develop within a few days. KNOW YOUR RESPONSIBILITIES It is important to know exactly how much and how often to take the opioid pain medications you are prescribed. Never take opioids in higher amounts or more often than prescribed. Do not combine opioids with alcohol or other drugs that cause drowsiness, such as benzodiazepines, also known as benzos, including diazepam and alprazolam, muscle relaxants or sleep aids. Never sell or share prescription opioids. This is illegal. Store opioids in a secure place and out of reach of others (including children, family, friends and visitors). The last page of this document has been signed and retained as a CHART COPY. Signatures Patient Education Materials Moderate Conscious Sedation, Adult, Care After Colonoscopy, Adult, Care After, Wnya-qm-Iwuy Medication Leaflets My discharge plan and instructions have been reviewed and explained to me and I,MICHELLE MITCHELL understand my current condition and have read and understand these discharge instructions. I have received a written copy of the plan/instructions. If I have questions, I am aware that I should contact my doctor. Patient/Melting Supervisor Signature: Date/Time: Relationship to Patient: Witness Name/Signature: Date/Time: [facility]08-19-2024 Note WHEELER ADMISSION HISTORY AND PHYSICIAL CHIEF COMPLAINT: HISTORY OF PRESENT ILLNESS: REVIEW OF SYSTEMS: ACTIVE PROBLEMS: (5) Anxiety associated with depression (901911447) Hypertrophic cardiomyopathy (850834083) IBS (irritable bowel syndrome) (38091032) Rectal bleeding (853997830) Tobacco use (0435012785) MEDICATIONS: Active Inpt Meds: None Active PRN Meds: None One Time Meds: None Active IV Meds: Lactated Ringers Infusion 1,000 mL (LR 1,000 mL) Start: 10/31/23 9:47:00 EDT, Rate: 50 mL/hr, 10/31/23 9:47:00 EDT ALLERGIES: (3) codeine morphine Zithromax FAMILY HISTORY: SOCIAL HISTORY: PHYSICAL EXAM: VITALS: IcmllbStdkAJKucbgSNSqE7UZC2HgluMt(kg) 10/30 10:0436.6--832726MZ29/19 57.0 24 Hr Tmax: 36.6 at 10/30 10:04 36 Hr Tmax: 36.6 at 10/30 10:04 Vital Signs are the last 5 in the past 48 hours. Weights display the last 5 within 7 days. Initial Wt: 10/30 57.0 kg 125 lb Current Wt: 10/30 57.0 kg 125 lb GENERAL: HEENT: CARDIOVASCULAR: RESPIRATORY: ABDOMEN: EXREMETIES: NEUROLOGICAL: PSYCHIATRIC: LABS: No 36hr Lab Data DIAGNOSTICS: IMPRESSION: PLAN: History and Physical Update I have examined the patient; reviewed the H&P and there are no changes to the H&P unless noted below. Digitally Signed by VICTOR M ORTIZ MD on 10/31/2023 10:12 AM [facility]08-19-2024 Note WHEELER ADMISSION HISTORY AND PHYSICIAL CHIEF COMPLAINT: HISTORY OF PRESENT ILLNESS: REVIEW OF SYSTEMS: ACTIVE PROBLEMS: (5) Anxiety associated with depression (013042791) Hypertrophic cardiomyopathy (398403914) IBS (irritable bowel syndrome) (88381874) Rectal bleeding (294022782) Tobacco use (2293659976) MEDICATIONS: Active Inpt Meds: None Active PRN Meds: None One Time Meds: None Active IV Meds: Lactated Ringers Infusion 1,000 mL (LR 1,000 mL) Start: 10/31/23 9:47:00 EDT, Rate: 50 mL/hr, 10/31/23 9:47:00 EDT ALLERGIES: (3) codeine morphine Zithromax FAMILY HISTORY: SOCIAL HISTORY: PHYSICAL EXAM: VITALS: CzzwayKzcvGAOrmhrUHDmJ3FET8XwspHg(kg) 10/30 10:0436.6--376485UZ19/19 57.0 24 Hr Tmax: 36.6 at 10/30 10:04 36 Hr Tmax: 36.6 at 10/30 10:04 Vital Signs are the last 5 in the past 48 hours. Weights display the last 5 within 7 days. Initial Wt: 10/30 57.0 kg 125 lb Current Wt: 10/30 57.0 kg 125 lb GENERAL: HEENT: CARDIOVASCULAR: RESPIRATORY: ABDOMEN: EXREMETIES: NEUROLOGICAL: PSYCHIATRIC: LABS: No 36hr Lab Data DIAGNOSTICS: IMPRESSION: PLAN: History and Physical Update I have examined the patient; reviewed the H&P and there are no changes to the H&P unless noted below. Digitally Signed by VICTOR M ORTIZ MD on 10/31/2023 10:11 AM [facility]08-19-2024 Anesthesiology Consult note Patient: MICHELLE MITCHELL Age: 43 years Sex: Female : 1980 Associated Diagnoses: None Author: ANGELIA GIBBS Preoperative Information Time of last food or liquid consumption: 10/31/2023 07:30:00 Anesthesia history Patient's history: negative. Family's history: negative. Review of Systems Ear/Nose/Mouth/Throat: Negative. Respiratory: smoker. Cardiovascular: crdiomyopathy. Gastrointestinal: Negative. Genitourinary: Negative. Endocrine: Negative. Musculoskeletal: Negative. Integumentary: Negative. Neurologic: depression. Health Status Allergies: Allergic Reactions (Selected) Severity Not Documented Codeine- No reactions were documented. Morphine- No reactions were documented. Zithromax- No reactions were documented., Allergies (3) ActiveSeverityReaction codeineNone Documented morphineNone Documented ZithromaxNone Documented Current medications: (Selected) Inpatient Medications Ordered LR 1,000 mL: 50 mL/hr, Intravenous Documented Medications Documented ALPRAZolam 0.5 mg oral tablet: 0.5 mg, 1 tab(s), Oral, TID, PRN: for anxiety, 0 Refill(s) methscopolamine 5 mg oral tablet: 5 mg, 1 tab(s), TAKE 1 TABLET BY MOUTH 2 TIMES A DAY traZODone 50 mg oral tablet: 50 mg, 1 tab(s), Oral, qHS, 30 tab(s), 0 Refill(s) zolpidem 10 mg oral tablet: 10 mg, 1 tab(s), Oral, qHS, PRN: for sleep, 0 Refill(s), Medications (1) Active Scheduled: (0) Continuous: (1) Lactated Ringers Infusion 1,000 mL 1,000 mL, Intravenous, 50 mL/hr PRN: (0) Problem list: Active Problems (5) Anxiety associated with depression Hypertrophic cardiomyopathy IBS (irritable bowel syndrome) Rectal bleeding Tobacco use Histories Past Medical History: No active or resolved past medical history items have been selected or recorded. Family History: HOCM - Hypertrophic obstructive cardiomyopathy Sister Breast cancer Sister Hypertension Father Cancer - unknown origin Sister Heart failure Father Cancer of colon Sister Brain cancer Sister Procedure history: Insertion of cardiac defibrillator using fluoroscopic guidance ([id number]). Comments: 10/26/2023 10:54 EDT - Sophie Gonzalez RN PACER WITH DEFIB Mastectomy of left breast (8967122026). Laparoscopic cholecystenterostomy (5903030168). H/O: tubal ligation (504481363). Ablation of uterine fibroid using magnetic resonance imaging guidance (7396513165). History of appendectomy (9372137218). Social History: Social & Psychosocial Habits Alcohol 10/31/2023 Use: Never Substance Abuse 10/31/2023 Use: Never Tobacco 10/31/2023 Tobacco Use: 5-9 cigarettes (between 1 Type: Cigarettes Physical Examination No qualifying data available General: Alert and oriented. Airway: Normal temporomandibular joint mobility. Mallampati classification: II (soft palate, fauces, uvula visible). Head: Normocephalic. Dentition Evaluation: Own teeth. Neck: Supple. Respiratory: Lungs are clear to auscultation. Cardiovascular: Normal rate. Heart Sounds: Normal. Gastrointestinal: Soft. Musculoskeletal Normal range of motion. Integumentary: Intact. Neurologic: Alert, Oriented. Review / Management Results review: No qualifying data available , Lab results 10/31/2023 10:04 EDT Continuous IV Infusions lr Wrist Right 10/31/2023 22 gauge Peripheral IV Activity: Insert new site Peripheral IV Dressing Condition: Clean, Dry, Intact Peripheral IV Dressing Activity: Applied, Transparent dressing Peripheral IV Line Status/Patency: Flushes easily Peripheral IV Line Care: Secured with tape Peripheral IV Site Condition: No complications Peripheral IV Equipment: Extension set . Assessment and Plan [place] [employer] Anesthesiologists (ASA) physical status classification: Class II. Anesthetic Preoperative Plan Anesthetic technique: MAC. Postoperative pain management: Per surgeon. Informed consent: signed by patient. Digitally Signed by AGNELIA GIBBS on 10/31/2023 10:06 AM [facility]04-22-2024 Telephone encounter Note* Telephone Encounter - Angela Krishna RN - 07/04/2023 7:34 PM EDT To:Angela Krishna 07/04/2023 7:33 PM Your fax has been successfully sent to Dr Sutherland at [phone]. 07/04/2023 7:30:51 PM Transmission Record Sent to [phone] with remote ID [id number] Result: (0) Success Page record: 1 - 3 Elapsed time: 01:48 on channel 50 07/04/2023 7:29:28 PM Conversion Record Successfully created cover sheet. Type: application/vnd.openxmlformats-officedocument.wordprocessingml.document G3 to TIFF #1: Success [image/g3] (63ms) GhostScript TIFF #1: Success [image/tiff] (220ms) Resubmitted: [application/postscript] Word Automation #1: Success [image/tiff] (1411ms) ([id number]:WORKSRV2) 07/04/2023 7:29:06 PM Conversion Record [RFPDA51.tmp.PRT] Type: application/postscript G3 to TIFF #1: Success [image/g3] (92ms) GhostScript TIFF #1: Success [image/tiff] (359ms) ([id number]:WORKSRV2) 07/04/2023 7:28:56 PM Origin Record Created by MERCEDES [facility] CampusLwbdme14-30-8907 Miscellaneous Notes* Telephone Encounter - Angela Krishna RN - 07/04/2023 7:34 PM EDT To:Angela Krishna 07/04/2023 7:33 PM Your fax has been successfully sent to Dr Sutherland at [phone]. 07/04/2023 7:30:51 PM Transmission Record Sent to [phone] with remote ID [id number] Result: (0) Success Page record: 1 - 3 Elapsed time: 01:48 on channel 50 07/04/2023 7:29:28 PM Conversion Record Successfully created cover sheet. Type: application/vnd.openxmlformats-officedocument.wordprocessingml.document G3 to TIFF #1: Success [image/g3] (63ms) GhostScript TIFF #1: Success [image/tiff] (220ms) Resubmitted: [application/postscript] Word Automation #1: Success [image/tiff] (1411ms) ([id number]:WORKSRV2) 07/04/2023 7:29:06 PM Conversion Record [RFPDA51.tmp.PRT] Type: application/postscript G3 to TIFF #1: Success [image/g3] (92ms) GhostScript TIFF #1: Success [image/tiff] (359ms) ([id number]:WORKSRV2) 07/04/2023 7:28:56 PM Origin Record Created by MERCEDES * Telephone Encounter - Angela Krishna RN - 07/04/2023 7:22 PM EDT S: Patient spoke with [facility] nurse regarding shortness of breath B: Onset of symptoms/concern today A: Patient states since this morning she has been short of breath, feels like she cannot take a deep breath, dizziness, nausea, moderate-severe pain under stomach and into right shoulder, and abdomenbloating. Patient hurts catching breath in between sentences. R: Advised patient to be seen in ED, Patient agreeable to [facility] and will have her drive her. Patient understands care advice. No further needs at this time. Reason for Disposition [1] MODERATE difficulty breathing (e.g., speaks in phrases, SOB even at rest, pulse 100-120) AND [2] NEW-onset or WORSE than normal Protocols used: Breathing Ptooimjatr-BFDRU-EG documented in this [facility]04-22-2024 Telephone encounter Note* Telephone Encounter - Angela Krishna RN - 07/04/2023 7:22 PM EDT S: Patient spoke with [facility] nurse regarding shortness of breath B: Onset of symptoms/concern today A: Patient states since this morning she has been short of breath, feels like she cannot take a deep breath, dizziness, nausea, moderate-severe pain under stomach and into right shoulder, and abdomenbloating. Patient hurts catching breath in between sentences. R: Advised patient to be seen in ED, Patient agreeable to [facility] and will have her drive her. Patient understands care advice. No further needs at this time. Reason for Disposition [1] MODERATE difficulty breathing (e.g., speaks in phrases, SOB even at rest, pulse 100-120) AND [2] NEW-onset or WORSE than normal Protocols used: Breathing Bxpflfsaki-QLLCS-FN [facility] CampusUoxzma03-25-3189 Hospital Discharge instructions Additional Instructions Stop taking the clindamycin and start taking Augmentin instead. Follow-up with your dentist on Tuesday. Return to emergency room with any worsening symptoms or you have difficulty swallowing.[facility] Work Phone: 1(316) 439-919402-14-2022 NoteHNO ID: [id number] Author: Vandana Becerra MD Service: Hospital Medicine Author Type: Resident Type: Plan of Care Filed: 04/26/2021 10:10 PM Note Text: Patient states she has her son in a car accident and has to leave AMA. Patient understands the risks of leaving AMA including worsening shortness of breath, heart failure and . She still wants to leave AMA. Patient has capacity. Vandana Becerra MDMarlborough HospitalQysvezbi15-95-4912 NoteHNO ID: [id number] Author: Vandana Becerra MD Service: Hospital Medicine Author Type: Resident Type: Plan of Care Filed: 04/26/2021 8:00 PM Note Text: Chart reviewed. ACS unlikely. Will give one dose ibuprofen for the pleuritic chest pain (Has h/o abnormal uterine bleed, however had ablation; no history of GI bleed.) Vandana Becerra MDMarlborough HospitalEkotdzgv01-35-0044 NoteHNO ID: [id number] Author: Aj Mullins MD Service: Hospital Medicine Author Type: Physician Type: Progress Notes Filed: 04/26/2021 3:41 PM Note Text: DEPARTMENT OF HOSPITAL MEDICINE PROGRESS NOTE SERVICE DATE: 04/26/2021 SERVICE TIME: 3:30 PM Hospital Medicine/Primary Attending: Aj Mullins MD NIGHT AND WEEKEND COVERAGE: CORAL COVERAGE:TEAM 2: [phone], please call Team 2 pager [phone]. [phone], please call [facility] Night Coverage pager [phone]) for Teams 1, 2, AND 3 Subjective INTERVAL HPI: SOB improving , still complaining of chest pain . No fever or chills MEDICATIONS: Reviewed Objective PHYSICAL EXAM: BP 113/57 Pulse 72 Temp (Src) 97.7 (Oral) Resp 18 Ht 5' 4 (1.63m) Wt 120 lb (54.4kg) SpO2 98% LMP 05/25/2010 BMI 20.59 kg/(m2). O2 Therapy: Room Air Physical Exam Performed GENERAL: Alert, no distress, cooperative NECK: No jugulovenous distention,Supple LUNGS: CTA CARDIAC: RR, 2+systolic murmur at 2nd LICS at sternal border ABDOMEN: Abdomen soft, non-tender EXTREMITIES: no edema PULSES: 2+ radial, 2+ carotid Lines, Drains, and Airways Line Peripheral 04/24/211999 Right Antecubital 20 Gauge 1 day DATA: Diagnostic tests reviewed for today's visit: Most recent labs and imaging results. Assessment/Plan Active Problems: Acute decompensated heart failure B/L pleural effusion , secondary to CHF H/O HOCM with normal diastolic LV function Cardiology consult on board On tele ICD interrogated Increased lasix to 20 Mg IV bid EP consult as recommended by cardiology , non sustained Vtach Still mildly overloaded, will reassess fluid status tomorrow morning for transition to PO diuretics Elevated HS-SAULO, insignificant Chest pain , pleuritic CP Follow up on echocardiogram report. Stress echo tomorrow lidocaine patch Increase tylenol to 1000 mg po Q 6 hrs PRN Unprovoked PE Occurred in 2017 She was started on Rivaroxaban at that time She stopped taking Rivaroxaban 1 year ago due to its cost She has switched her insurance since then Her current co-pay for Rivaroxaban is nill according to our Pharmacy The patient agrees on resuming Rivaroxaban Plan: - Resumed Rivaroxaban 20mg PO every day with dinner ? # BRCA-2 mutation carrier # Left Breast Ca # Endometrial Ca, s/p ablation and chemotherapy # Cervical Ca, s/p conization # Ovarian Ca, s/p oophorectomy Breast Ca diagnosed in ~1997, s/p mastectomy, chemotherapy, and radiotherapy She had a subsequent recurrence ~8 years later, s/p lumpectomy and chemotherapy Plan: - C/W surveillance with Heme/Onc and Gyne/Onc as an outpatient ? # Anxiety Plan: - C/W home Alprazolam - C/W home Zolpidem ABT PRN Medication and Non-Pharmacologic VTE Prophylaxis/Anticoagulants Anticoagulant AND Antiplatelet Medications (From admission, onward) Start Dose Route Frequency Last Action Ordered Stop 04/25/21 1700 rivaroxaban 20 mg tab(s) (XARELTO) (rivaroxaban tab(s) (XARELTO)) 20 mg ORAL DAILY WITH DINNER Given, 04/25 1749 04/25/21 1536 -- 04/25/21 0830 activity - mobilize patient (ky,va) VTE Prophylaxis: on AC Disposition: Home Plan of care discussed with: Patient, RN and Consultants: cardiology dr. Zaragoza and Francisco TROY SIGNATURE: Aj Mullins MD PATIENT NAME: Michelle Mitchell DATE: April 26, 2021 TIME: 3:30 PM etx [id number] HospitalRbxtbxgr54-48-2734 NoteHNO ID: [id number] Author: CHAKA Pedraza Tech Service: ? Author Type: Claim Inspector Type: Procedures Filed: 04/25/2021 2:42 PM Note Text: X[employer] Software pacer interrogation done on 04/25/2021 @ [address] [place] [address] notified to call for report.Marlborough HospitalEhpnsdqv15-45-0072 Influenza virus A and B RNA and SARS-CoV-2 (COVID-19) N gene panel BIMAL+probe (Resp)COVID 19 RESULT: SARS-CoV-2 (Agent of COVID-19) Not Detected by PCR. INFLUENZA A PCR: Negative for Influenza A by RT-PCR INFLUENZA B PCR: Negative for Influenza B by RT-PCRMount Desert Island HospitalComment on above: Performed By: #### [id number] #### [facility] CLIA [id number] [address] [place] [id number] [place] OF AMERICADischarge summary Author Willian Ovalles [facility] Note Date/Time July 24, 2024 8:43a [facility] Medical Records Department [address] [place] [address] Discharge Summary 07/24/24 0839 MR#: [id number] Acct: [id number] Name: MICHELLE MITCHELL Rep #:[id number] : 1980 43 From: Willian Ovalles DO PCP: Dr. Dex Sutherland MD Status:A DM IN Location: [place] [address] Providers Date of Admission: 07/21/24 Primary Care Physician: Dr. Dex Sutherland MD Consultations 07/21/24 00:48 Consult: Cardiology Routine Consulting Provider: [facility] Reason for Consult: AE CHF, Elevated Troponin and Near Syncope with Hypertrophic CM EMERGENT Consult: No MD Notified: Yes Date Notified: 07/21/24 Time Notified: 06:52 Method of Notification: Text Method of Consult:: In-Person 07/23/24 08:42 Consult: Gastroenterology Routine Consulting Provider: [facility] Reason for Consult: gastritis. clearance for possible MICKI. EMERGENT Consult: No MD Notified: Yes Date Notified: 07/23/24 Time Notified: 08:42 Method of Notification: Verbal Reason For Visit: AE CHF, NEAR SYNCOPE, ELEVATED TROPONIN, ELEVATED Diagnosis Discharge Diagnosis (1) HFrEF (heart failure with reduced ejection fraction): Status: Acute Code(s): I50.20 - Unspecified systolic (congestive) heart failure Plan: acute Echo from 09/13/23: EF 50%, PASP 58mmHg. Now 35% with stage II DD. Severely enlarged LA. RVSP 77mmHg. CW severe pulmonary hypertension. s/p single-lead AICD CTA chest showed bilateral pleural effusions On IV furosemide 20 IV BID. Continue carvedilol 3.125 BID, empagliflozin 10/d, lisinopril 5 BID, spironolactone 12.5/d FRANCO Bishop. Recommending transfer to tertiary facility. (2) Elevated troponin: Status: Acute Code(s): R79.89 - Other specified abnormal findings of blood chemistry Plan: minimal elevation. I doubt primary cardiac ischemia. Either baseline levels v demand ischemia from CHF in pt with hypertrophic cardiomyopathy. (3) Vegetation of heart valve: Status: Acute Code(s): I33.0 - Acute and subacute infective endocarditis Plan: Not valvular, but on ICD wire (atrial side). Previously noted in 2023. FRANCO Clay, who recommend blood cultures to rule out infective endocarditis. Follow up blood cultures, so far negative, however, if positive, will need MICKI. FRANCO Clay and said pt would require GI clearance prior to undergoing a MICKI. FRANCO Myles, who will be consulted. Ok for anticoagulation. (4) Pulmonary hypertension: Status: Acute Code(s): I27.20 - Pulmonary hypertension, unspecified Plan: suspect group 2. PE ruled on CTA unlikely group 1 component, may benefit from referral to pulmonary hypertension specialist. Pt states that she plans on following up with Dr. Aguilar at [facility], CTS at [facility] that specialized in cardiac transplantation. She may be refferred by Dr. Aguilar since she will be following up there. Plan Gastritis: noted on EGD from 07/12. Biopsy performed (still pending result). Continue pantoprazole. Terminal ileum congestion: from colonoscopy on 07/12. on prednisone. Biopsy performed (still pending result). VTE prophylaxis: LMWH. Greater than 60 minutes of which greater than 50% of the time was discussing with the patient and Drs. Bishop and Shameka. Present during phone call with Dr. Bishop and her sister. Patient has been accepted to [facility], awaiting on bed availablily. Medications at Discharge Home Medications alprazolam 0.5 mg tablet 0.5 mg PO BID 11/13/21 zolpidem 10 mg tablet 10 mg PO QHS 11/13/21 albuterol sulfate 90 mcg/actuation aerosol inhaler 1 inh inhalation PRN 07/26/23 dicyclomine 20 mg tablet 20 mg PO TID PRN abdominal pain #30 tabs 07/03/24 pantoprazole 20 mg tablet,delayed release 20 mg PO BID 07/10/24 sucralfate 1 gram tablet (Carafate) 1 g PO BIDCM 07/10/24 prednisone 20 mg tablet 40 mg PO Q12H 07/20/24 Hospital Course Operations None Procedures 2-D Echocardiogram Summary of Care Provided Minutes Spent on Discharge: 32 Hospital Course: Patient mated with acute heart failure exacerbation. Patient was started on IV furosemide. Patient had an echocardiogram that showed reduced ejection fractionas well as increased pulmonary artery pressures. There was noted to be a vegetation on her echo but that was present back in September of last year. Not feltto be infective endocarditis but patient did have blood cultures performed on the that are negative thus far on the . Concern could be also a clot so it is recommend having full dose anticoagulation. Patient has a history of hypertrophic cardiomyopathy and has an AICD. Patient has a has a family historyof that with a sister and father who both underwent heart transplants for the same. But given her worsening heart failure and the concern that she may need eventually a heart transplant it was recommended patient be transferred to tertiary facility with cardiology and evaluation to see if she would be a candidate for an eventual heart transplant. [facility] Weight / BMI Weight Weight: 60.5 kg Body Mass Index (BMI) 22.8 ABG / Lab / Microbiology Data 07/23/24 04:56 07/23/24 04:56 Radiography Diagnostic Testing: Radiology Impression Venous Doppler Study 07/21/24 00:48 Interpretation Summary Deep veins of the bilateral lower extremities are patent and compressible segmentally. There is no evidence of bilateral lower extremity deep vein thrombosis. The bilateral great saphenous veins appearpatent and compressible segmentally. Ordering Physician: Sergio Umaña Performed By: Wei Kessler RVT D/C Instructions DC O2, CPAP, BIPAP Needs Home O2 Discharge instructions: No Meaningful Use Info Meaningful Use Meaningful Use Diagnoses (Choose all that apply): CHF CHF MARIA T/ARB ordered at discharge?: Yes Documented LVEF (%): 35 Ischemic Stroke Statin Dosing Therapy Reference: STATIN DOSE THERAPY REFERENCE: * Patients > 75 years receive moderate or high dose statin therapy. * Patients 75 years or YOUNGER should receive HIGH intensity statin dose unless contraindicated. You will be required to document reason for non-treatment if statin daily dose does not meet guidelines. HIGH DOSE STATIN THERAPY DAILY Atorvastatin > than or = to 40 mg Rosuvastatin > than or = to 20 mg Amlodipine + Atorvastatin > than or = to 2.5/40 mg Ezetimibe + Simvastatin 10/80 mg Simvastatin 80mg Discharge Plan Admission Admit Date/Time: 07/21/24 00:26 Primary Reason for Your Visit: Heart failure Attending Provider: Willian Ovalles Primary Care Provider: Dex Sutherland Consulting Providers: Filemon Subramanian; Chetan Grant; Saman Clay; Augustin Potts; Don Victoria; Jose Francisco Santamaria; Cleo Huerta; Mercy Bishop; Sarita Flores; Vincent Hdz; Cliff Car; Bogdan Bates NP; Xochitl Bourne PA; Grover Guerra; Sergio Umaña Discharge Orders/Prescriptions Prescriptions: No Action albuterol sulfate 90 mcg/actuation HFA aerosol inhaler 1 inh inhalation PRN alprazolam 0.5 mg tablet 0.5 mg PO BID Patient Comments: TAKE 1 TABLET BY MOUTH TWICE DAILY zolpidem 10 mg tablet 10 mg PO QHS dicyclomine 20 mg tablet 20 mg PO TID PRN (Reason: abdominal pain) Qty: 30 0RF pantoprazole 20 mg tablet,delayed release (DR/EC) 20 mg PO BID sucralfate [Carafate] 1 gram tablet 1 g PO BIDCM prednisone 20 mg tablet 40 mg PO Q12H Referrals / Follow Up: Dex Sutherland MD [Primary Care Provider] - Disposition Disposition (needs filled in before D/C Order can be placed): Acute Care Hospital Charges/Coding Visit Charges Inpatient E&M: 51816 Disch Hosp >30min 07/24/24 0843 <Electronically signed by Willian Ovalles DO> Cosigner Signature (if applicable): CC: Dr. Willian Ovalles DO; Dr. Dex Sutherland MD~ Signed [facility] Work Phone: Discharge summary Author Gage [facility] Note Date/Time August 11, 2024 1:39p m [facility] Medical Records Department [address] [place] [address] Emergency Department Summary 08/11/24 MR#: [id number] Acct: [id number] Name: MICHELLE MITCHELL Rep #:[id number] : 1980 43 From: Gage rush DO PCP: Dr. Dex Sutherland MD Status:R EG ER Location: ED HPI HPI - Female History of Present Illness Chief Complaint: Flank Pain Narrative Narrative: Chief complaint and HPI: Left flank pain. 43-year-old female with remote history of urolithiasis, GERD presents for evaluation of left flank pain. Onset of symptoms yesterday evening at 11 PM. Pain is not improving which is why she presents for evaluation. Associated symptom is nausea and vomiting. Feels similar to previous kidney stone. Denies any fever, chills, shortness of breath, chest pain, diarrhea, dysuria, hematuria. Review of systems: See HPI Medications: As listed on the chart Allergies: As listed on the chart PFSH: Per chart Vital signs: As listed on the chart. Reviewed. Physical exam: Gen: A&O x3, uncomfortable secondary to pain Head: Normocephalic, atraumatic Eyes: No sclera icterus, conjunctiva clear ENT: Moist mucous membranes Neck: Trachea midline, No JVD CV: RRR, no murmurs, no peripheral edema Resp: Lungs CTA BL, no w/r/c GI: Abd soft, non-distended, non-tender, no r/r/g : No CVA tenderness Musc: Full ROM, no deformity Skin: Warm, dry Neuro: Alert, oriented, grossly intact, sensation intact Psych: Cooperative, appropriate mood and affect [facility] Medical History (Updated 08/11/24 @ 13:[address] 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 Ovarian cancer GERD (gastroesophageal reflux disease) Insomnia Anxiety Collapsed lung History of blood clots Asthma Breast cancer Pacemaker ICD (implantable cardioverter-defibrillator) in place Hypertrophic cardiomyopathy Home Medications ?Medication ?Instructions ?Recorded ?Last Taken ?Type alprazolam 0.5 mg tablet 0.5 mg PO BID 11/13/2108/10 History zolpidem 10 mg tablet 10 mg PO QHS 11/13/21 History dicyclomine 20 mg tablet 20 mg PO TID PRN abdominal p ain 07/03/24 Unknown Rx #30 tabs sucralfate 1 gram tablet (Carafate) 1 g PO BIDCM 07/1008/11/24 History metoprolol succinate 25 mg 25 mg PO QDAY 08/08/2407/14 History tablet,extended release 24 hr meloxicam 15 mg tablet 15 mg PO QDAY #30 tabs 08/1008/11/24 Rx pantoprazole 40 mg tablet,delayed 40 mg PO BID 5 08/11/24 History release Allergy/AdvReac Type Severity Reaction Status Date / Time morphine Allergy Mild Hives Verified 08/11/24 10:27 codeine Allergy Hives Verified 08/11/24 10:27 erythromycin base Allergy PT UNSURE Verified 08/11/24 10:27 OF REACTION Fish Containing Products Allergy Other Verified 08/11/24 10:27 levofloxacin Allergy PT UNSURE Verified 08/11/24 10:27 OF REACTION shellfish derived Allergy Other Verified 08/11/24 10:27 tramadol Allergy Hives Verified 08/11/24 10:27 trimethobenzamide (From Allergy Other Verified 08/11/24 10:27 Tigan) gabapentin (From Neurontin) AdvReac Severe Anaphylaxis Verified 08/11/24 10:27 acetaminophen (From Vicodin) AdvReac Other Verified 08/11/24 10:27 hydrocodone (From Vicodin) AdvReac Other Verified 08/11/24 10:27 metoclopramide (From Reglan) AdvReac Other Verified 08/11/24 10:27 Family History Father Heart disease Idiopathic hypertrophic subaortic stenosis, hypertrophic obstructive cardiomyopathy, congestive heart failure Mother Breast cancer DVT (deep venous thrombosis) Sister Hypertrophic obstructive cardiomyopathy heart transplant at age 34 Cancer Brain, breast, and colon Grandfather Heart disease at age 45 Grandmother CVA (cerebral vascular accident) age 43 Surgical History Presence of implantable cardioverter-defibrillator (ICD) History of cardiac catheterization History of oophorectomy History of cervical polypectomy History of colonoscopy History of tubal ligation History of mastectomy History of cholecystectomy Hx of appendectomy Social History household members: spouse and family housing: house current occupational status: employed Smoking Status: Current every day smoker tobacco type: cigarettes how long ago did patient quit smokin months ago alcohol intake: former substance use type: does not use caffeine: Yes EXAM Physical Exam Const Vital Signs: 08/11/24 10:27 08/11/24 11:29 08/11/24 12:00 Temperature 97.9 F 97.8 F Temperature Source Oral Oral Pulse Rate 79 78 69 Respiratory Rate 16 14 17 Blood Pressure 123/98 H 132/66 H 107/70 Blood Pressure Mean 106 88 82 Pulse Ox 100 98 96 Oxygen Delivery Method Room Air Room Air Room Air 08/11/24 13:00 Temperature Temperature Source Pulse Rate 78 Respiratory Rate 14 Blood Pressure 141/78 H Blood Pressure Mean 99 Pulse Ox 98 Oxygen Delivery Method Room Air MDM MDM MDM Narrative Medical decision making narrative: 43-year-old female with remote history of urolithiasis, GERD presents for evaluation of left flank pain. Onset yesterday evening without improvement. Differential diagnosis includes but is not limited to urolithiasis, UTI, pyelonephritis, electrolyte abnormality. NS bolus, Toradol, Zofran ordered for symptoms. Laboratory workup ordered including CT abdomen pelvis without contrast. CBC without leukocytosis or anemia. BMP unremarkable without electrolyte abnormality or RADHA. UA negative for UTI although positive for blood. CT abdomen pelvis shows small esophageal hiatal hernia. Hepatomegaly with fatty infiltration. Patient states she has a known history of enlarged liver. Fecal retention in the colon consistent with constipation. No urolithiasis. Diverticulosis without diverticulitis. Given patient's symptoms as well as microscopic hematuria of the urine, concern is for possible passed urolithiasis. There is no hydronephrosis. No UTI. On reevaluation patient still endorsing left flank pain. Will give Dilaudid as patient states she cannot have morphine. Will add on liver panel as well as pancreatitis to assessfor other etiology. Hepatic panel shows baseline AST transaminitis and elevatedalkaline phosphatase. Patient not having any right upper quadrant abdominal pain. Lipase unremarkable. On reevaluation, patient states her pain has resolved. Again, I suspect her pain is secondary to past urolithiasis given blood in her urine as well as her presentation. Recommend following up with PCP. Patient stable to discharge home. Return precautions explained. She confirmed understanding of the plan. Impression: 1. Left flank pain 2. Suspect likely passed urolithiasis Lab Data Labs: Laboratory Results - last 24 hr 08/11/24 08/11/24 08/11/24 10:40 10:55 11:32 WBC 10.5 RBC 4.26 Hgb 13.5 Hct 40.9 MCV 96.0 MCH 31.7 MCHC 33.0 RDW Std Deviation 46.5 H RDW Coeff of Damon 13.1 Plt Count 433 MPV 9.9 Immature Gran % (Auto) 0.700 Neut % (Auto) 80.2 H Lymph % (Auto) 11.4 L [place] % (Auto) 4.9 Eos % (Auto) 1.9 Baso % (Auto) 0.9 Absolute Neuts (auto) 8.4 H Absolute Lymphs (auto) 1.19 Nucleated RBC % 0 Sodium 137 Potassium 4.2 Chloride 103 Carbon Dioxide 22.0 Anion Gap 12 BUN 9 Creatinine 0.74 Estim Creat Clear Calc 83.77 Est GFR (MDRD) Non-Af 103 BUN/Creatinine Ratio 12.1 Glucose 90 Lactic Acid < 1.0 Calcium 9.5 Total Bilirubin 0.29 Direct Bilirubin 0.12 AST 38 H ALT 32 Alkaline Phosphatase 173 H Total Protein 7.2 Albumin 4.0 Globulin 3.1 Lipase 17 Urine Color Yellow Urine Clarity Sl. Cloudy Urine pH 7.0 Ur Specific [place] 1.010 Urine Protein 15 H Urine Glucose (UA) Normal Urine Ketones Negative Urine Occult Blood 50 H Urine Nitrite Negative Urine Bilirubin Negative Urine Urobilinogen Normal Ur Leukocyte Esterase Negative Urine RBC 0-5 SEEN Urine WBC 0-5 SEEN Ur Squamous Epith Cells 0-5 SEEN Urine Bacteria RARE Urine Mucus 0 SEEN Urine Test Negative Radiography Diagnostic Testing: Clinical Impression(s) from Imaging Studies Abdomen/Pelvis CT 08/11/24 10:59 IMPRESSION: 1. Small esophageal hiatal hernia. 2. Hepatomegaly with fatty infiltration. 3. Fecal retention in the colon consistent with constipation. 4. No obstructive uropathy. 5. Colonic diverticulosis without acute diverticulitis. Reading Location: [facility] Discharge Plan Triage Chief Complaint: Flank Pain ED Provider: Gage Sharma Dx/Rx/DC Orders Clinical Impression: Flank pain Instructions: ED Flank Pain, Uncertain Cause Prescriptions: No Action metoprolol succinate 25 mg tablet extended release 24 hr 25 mg PO QDAY meloxicam 15 mg tablet 15 mg PO QDAY Qty: 30 3RF alprazolam 0.5 mg tablet 0.5 mg PO BID Patient Comments: TAKE 1 TABLET BY MOUTH TWICE DAILY zolpidem 10 mg tablet 10 mg PO QHS dicyclomine 20 mg tablet 20 mg PO TID PRN (Reason: abdominal pain) Qty: 30 0RF sucralfate [Carafate] 1 gram tablet 1 g PO BIDCM pantoprazole 40 mg tablet,delayed release (DR/EC) 40 mg PO BID Primary Care Provider: Dex Sutherland Referrals: Dex Sutherland MD [Primary Care Provider] - Activity Restrictions/Additional Instructions: Follow-up with primary care physician. At this point no clear reason for your pain however suspect it was likely secondary to passed kidney stone. Return back to the ED if symptoms change or worsen. You received a Toradol here in theemergency department. No ibuprofen until 6 PM given you received Toradol. Print Language: Zimbabwean Disposition Disposition: Home, Self Care What to do if you have Problems For any increased pain, shortness of breath, bleeding, nausea or vomiting, chestpain, or any unexpected problems, contact your Primary Care Provider. Call [facility] ([phone]) or report to the closest Emergency Room. Call 911 if necessary. 08/11/24 9052 <Electronically signed by Gage Sharma DO> Cosigner Signature (if applicable): CC: Dr. Dex Sutherland MD ~ Signed [facility] Work Phone: Evaluation noteNo assessment information available [facility] Work Phone: Evaluation note* Diagnosis Pre-operative examination- Primary Preoperative examination, unspecified RLQ abdominal pain Abdominal pain, right lower quadrant Nausea and vomiting, intractability of vomiting not specified, unspecified vomiting type Cardiomyopathy, hypertrophic nonobstructive (HCC) Other hypertrophic cardiomyopathy PE (pulmonary thromboembolism) (HCC) Other pulmonary embolism and infarction Automatic implantable cardioverter-defibrillator in situ Automatic implantable cardiac defibrillator in situ History of left breast cancer Gastroesophageal reflux disease, esophagitis presence not specified Gastric ulcer, unspecified chronicity, unspecified whether gastric ulcer hemorrhage or perforation present Anxiety Anxiety state, unspecified History of transesophageal echocardiography (MICKI)- Primary [facility] Diagnosis Pre-operative examination- Primary Preoperative examination, unspecified RLQ abdominal pain Abdominal pain, right lower quadrant Nausea and vomiting, intractability of vomiting not specified, unspecified vomiting type Cardiomyopathy, hypertrophic nonobstructive (HCC) Other hypertrophic cardiomyopathy PE (pulmonary thromboembolism) (HCC) Other pulmonary embolism and infarction Automatic implantable cardioverter-defibrillator in situ Automatic implantable cardiac defibrillator in situ History of left breast cancer Gastroesophageal reflux disease, esophagitis presence not specified Gastric ulcer, unspecified chronicity, unspecified whether gastric ulcer hemorrhage or perforation present Anxiety Anxiety state, unspecified Preoperative examination, unspecified- Primary documented in this encounter [facility] note* Diagnosis Hypertrophic cardiomegaly- Primary Chronic heart failure with preserved ejection fraction (HFpEF) Cardiomyopathy, hypertrophic nonobstructive (Multi) Other primary cardiomyopathies History of pulmonary embolism Personal history of venous thrombosis and embolism Other ascites Atypical chest pain Other chest pain documented in this encounter [facility] Work Phone: Hospital course Narrative No data available for this section [facility] Hospital Discharge instructions Additional Instructions See your dentist as soon as possible.[facility] Work Phone: Hospital Discharge instructions Additional Instructions Return if feeling worse. Follow-up with your doctor if not improving. All your test tonight were unremarkable.[facility] Work Phone: Hospital Discharge instructions Additional Instructions Please follow-up with cardiology secondary to your hypertrophic obstructive cardiomyopathy and return to the ER should you have any further [facility] Work Phone: Hospital Discharge instructions Additional Instructions You do have some pathology, you do have some ascites, a small right pleural effusion, you need to follow-up outpatient. Return here for worsening symptoms.[facility] Work Phone: Hospital Discharge instructions Additional Instructions Your CT scan showed inflammation of your ileum concerning for inflammatory bowel disease. Please follow-up with gastroenterology to discuss further evaluation of this. Take the prescribed medication as directed to help control symptoms and return to the ER should you have any further concernsW[facility]Ohio [facility] Work Phone: Hospital Discharge instructions Additional Instructions Follow-up with primary care physician. At this point no clear reason for your pain however suspect it was likely secondary to passed kidney stone. Return back to the ED if symptoms change or worsen. You received a Toradol here in the emergency department. No ibuprofen until 6 PM given you received Toradol.[facility] Work Phone: Reason for visit Narrative* Auth/Cert (Routine) Specialty Diagnoses / Procedures Referred By Annalisa t Referred To Contact HOSP INPATIENT Diagnoses Endocarditis Procedures na [id number] [phone] Phone: tel: Referral ID Status Reason Start Date Expiration Date Visits Re quested Visits Authorized [id number] 1 1 [facility] Summary Purpose Family History Relationship Condition Age at Onset Recorded Date/T rosa father Cardiac disease Unknown mother Malignant neoplasm of breast Unknown Deep vein thrombosis (DVT) Unknown sister Hypertrophic obstructive cardiomyopathy U nknown Malignant neoplasm Unknown grandfather Cardiac disease Unknown grandmother Cerebrovascular accident (CVA) Unknown Advance Directives Date Activated Date Inactivated Comments 07/25/2024 10:11 AM 07/27/2024 1:14 PM Question Answer Comments Full Code Order Discussed With: Patient Date Activated Date Inactivated Comments 07/04/2024 11:22 PM 07/08/2024 6:53 PM Question Answer Comments Full Code Order Discussed With: Patient Date Activated Date Inactivated Comments 05/15/2024 6:31 PM 05/21/2024 12:51 PM Question Answer Comments Full Code Order Discussed With: Patient Date Activated Date Inactivated Comments 04/25/2021 11:18 AM 04/27/2021 8:26 AM Question Answer Comments Full Code Order Discussed With: Patient Advance Directive Response Recorded Date/ Time Living Will No November 02 10:05pm Power of Technician Terminal And Repeater No November 02 10:05pm Advance Directive Response Recorded Date/ Time Living Will No November 13 4:21pm Power of Technician Terminal And Repeater No November 13, 2021 4:21pm Advance Directive Response Recorded Date/ Time Living Will No December 16 10:45pm Power of Technician Terminal And Repeater No December 16 10:45pm Advance Directive Response Recorded Date/ Time Living Will No March 09 9:21am Power of Technician Terminal And Repeater No March 09, 2022 9:21am Advance Directive Response Recorded Date/ Time Living Will No December 25 9:27pm Power of Technician Terminal And Repeater No December 25, 2022 9:27pm Advance Directive Response Recorded Date/ Time Living Will No July 04, 2023 8:21pm Power of Technician Terminal And Repeater No July 03 8:21pm Advance Directive Response Recorded Date/ Time Living Will No October 31 11:40pm Do you have a Healthcare Power of Technician Terminal And Repeater? No November 01, 2023 11:40pm Living Will No May 12, 2024 1:07am Do you have a Healthcare Power of Technician Terminal And Repeater? No May 12, 2024 1:07am Living Will No July 01, 2024 8:41pm Do you have a Healthcare Power of Technician Terminal And Repeater? No July 01, 2024 8:41pm Advance Directive Response Recorded Date/ Time Living Will No October 31 11:40pm Do you have a Healthcare Power of Technician Terminal And Repeater? No November 01, 2023 11:40pm Living Will No May 12, 2024 1:07am Do you have a Healthcare Power of Technician Terminal And Repeater? No May 12, 2024 1:07am Living Will No July 01, 2024 8:41pm Do you have a Healthcare Power of Technician Terminal And Repeater? No July 01, 2024 8:41pm Do you have a Healthcare Power of Technician Terminal And Repeater? No July 03, 2024 1:43pm Do you have a Healthcare Power of Technician Terminal And Repeater? No July 10, 2024 11:58am Do you have a Healthcare Power of Technician Terminal And Repeater? No July 20, 2024 7:24pm Advance Directive Response Recorded Date/ Time Living Will No October 31 11:40pm Do you have a Healthcare Power of Technician Terminal And Repeater? No November 01, 2023 11:40pm Living Will No May 12, 2024 1:07am Do you have a Healthcare Power of Technician Terminal And Repeater? No May 12, 2024 1:07am Living Will No July 01, 2024 8:41pm Do you have a Healthcare Power of Technician Terminal And Repeater? No July 01, 2024 8:41pm Do you have a Healthcare Power of Technician Terminal And Repeater? No July 03, 2024 1:43pm Do you have a Healthcare Power of Technician Terminal And Repeater? No July 10, 2024 11:58am Do you have a Healthcare Power of Technician Terminal And Repeater? No July 21, 2024 1:00am Date Activated Date Inactivated Comments 07/25/2024 10:11 AM Question Answer Comments Full Code Order Discussed With: Patient Date Activated Date Inactivated Comments 07/04/2024 11:22 PM 07/08/2024 6:53 PM Question Answer Comments Full Code Order Discussed With: Patient Date Activated Date Inactivated Comments 05/15/2024 6:31 PM 05/21/2024 12:51 PM Question Answer Comments Full Code Order Discussed With: Patient Date Activated Date Inactivated Comments 04/25/2021 11:18 AM 04/27/2021 8:26 AM Question Answer Comments Full Code Order Discussed With: Patient Date Activated Date Inactivated Comments 07/25/2024 10:11 AM Advance Directive Response Recorded Date/ Time Living Will No May 12, 2024 1:07am Do you have a Healthcare Power of Technician Terminal And Repeater? No May 12, 2024 1:07am Living Will No July 01, 2024 8:41pm Do you have a Healthcare Power of Technician Terminal And Repeater? No July 01, 2024 8:41pm Do you have a Healthcare Power of Technician Terminal And Repeater? No July 03, 2024 1:43pm Do you have a Healthcare Power of Technician Terminal And Repeater? No July 10, 2024 11:58am Do you have a Healthcare Power of Technician Terminal And Repeater? No July 21, 2024 1:00am Advance Directive Response Recorded Date/ Time Living Will No May 12, 2024 1:07am Do you have a Healthcare Power of Technician Terminal And Repeater? No May 12, 2024 1:07am Living Will No July 01, 2024 8:41pm Do you have a Healthcare Power of Technician Terminal And Repeater? No July 01, 2024 8:41pm Do you have a Healthcare Power of Technician Terminal And Repeater? No July 03, 2024 1:43pm Do you have a Healthcare Power of Technician Terminal And Repeater? No July 10, 2024 11:58am Do you have a Healthcare Power of Technician Terminal And Repeater? No July 21, 2024 1:00am Do you have a Healthcare Power of Technician Terminal And Repeater? No August 11, 2024 10:27am Advance Directive Response Recorded Date/ Time Living Will No May 12, 2024 1:07am Do you have a Healthcare Power of Technician Terminal And Repeater? No May 12, 2024 1:07am Living Will No July 01, 2024 8:41pm Do you have a Healthcare Power of Technician Terminal And Repeater? No July 01, 2024 8:41pm Do you have a Healthcare Power of Technician Terminal And Repeater? No July 03, 2024 1:43pm Do you have a Healthcare Power of Technician Terminal And Repeater? No July 10, 2024 11:58am Do you have a Healthcare Power of Technician Terminal And Repeater? No July 21, 2024 1:00am Do you have a Healthcare Power of Technician Terminal And Repeater? No August 11, 2024 10:27am Do you have a Healthcare Power of Technician Terminal And Repeater? No August 20, 2024 3:00pm Chief Complaint and Reason for Visit Chief Complaint DENTAL PAIN Chief Complaint DENTAL PAIN DENTAL Chief Complaint DENTAL PAIN DENTAL CP, DIZZINESS, SALAZAR, NAUSEA Chief Complaint DENTAL CP, DIZZINESS, SALAZAR, NAUSEA LOWER EXTREMITY Chief Complaint Chest pain Chief Complaint sob Chief Complaint Admit Date Pacer Check Remote March 28, 2024 9 :00am 4 M FU March 28, 2024 1 1:28am DIZZINESS, NAUSEA, WOUND May 11, 2024 11:41pm abdominal pin July 01, 2024 7:5 1pm Reason for Visit Admit Date Hypertrophic cardiomyopathy March 11:28am ICD (implantable cardioverter-defibrilla tor) in place March 28, 2024 11:28am Chief Complaint Admit Date Pacer Check Remote March 28, 2024 9 :00am 4 M FU March 28, 2024 1 1:28am DIZZINESS, NAUSEA, WOUND May 11, 2024 11:41pm abdominal pin July 01, 2024 7:5 1pm CROHNS July 03, 2024 1:0 6pm ABD PAIN July 03, 2024 1:3 0pm Pacer Check Remote July 04, 2024 9:0 0am 3 mos ICD f/u July 04, 2024 11: 17am Cardiac Clearance July 10, 2024 1:2 8pm Severe abdominal pain, SOB July 20, 2024 11:40pm Reason for Visit Admit Date Hypertrophic cardiomyopathy March 11:28am ICD (implantable cardioverter-defibrilla tor) in place March 28, 2024 11:28am Abdominal pain July 03, 2024 1:0 6pm Hypertrophic cardiomyopathy July 04, 2024 11:17am ICD (implantable cardioverter-defibrilla tor) in place July 04, 2024 11:17am Pacemaker July 04, 2024 11: 17am Hypertrophic cardiomyopathy July 10, 2024 1:28pm ICD (implantable cardioverter-defibrilla tor) in place July 10, 2024 1:28pm Abdominal pain July 12, 2024 9:45am GERD (gastroesophageal reflux disease) M ay 2024 9:45am Abdominal pain July 20, 2024 11:40p m Elevated troponin July 20, 2024 11:40p m Heart failure of unknown etiology July 11:40pm Hypertrophic cardiomyopathy July 20 11:40pm ICD (implantable cardioverter-defibrilla tor) in place July 20, 2024 11:40pm Leukocytosis July 20, 2024 11:40p m Nausea & vomiting July 20, 2024 11:40p m Pacemaker July 20, 2024 11:40p m Chief Complaint Admit Date Pacer Check Remote March 28, 2024 9 :00am 4 M FU March 28, 2024 1 1:28am DIZZINESS, NAUSEA, WOUND May 11, 2024 11:41pm abdominal pin July 01, 2024 7:5 1pm CROHNS July 03, 2024 1:0 6pm ABD PAIN July 03, 2024 1:3 0pm Pacer Check Remote July 04, 2024 9:0 0am 3 mos ICD f/u July 04, 2024 11: 17am Cardiac Clearance July 10, 2024 1:2 8pm AE CHF, NEAR SYNCOPE, ELEVATED TROPONIN, ELEVATED July 21, 2024 12:26am AE CHF, NEAR SYNCOPE, ELEVATED TROPONIN, ELEVATED July 21, 2024 7:53am AE CHF, NEAR SYNCOPE, ELEVATED TROPONIN, ELEVATED July 21, 2024 1:16pm AE CHF, NEAR SYNCOPE, ELEVATED TROPONIN, ELEVATED July 22, 2024 8:52am AE CHF, NEAR SYNCOPE, ELEVATED TROPONIN, ELEVATED July 22, 2024 11:57am AE CHF, NEAR SYNCOPE, ELEVATED TROPONIN, ELEVATED July 23, 2024 7:49am AE CHF, NEAR SYNCOPE, ELEVATED TROPONIN, ELEVATED July 23, 2024 8:26am AE CHF, NEAR SYNCOPE, ELEVATED TROPONIN, ELEVATED July 24, 2024 8:39am Reason for Visit Admit Date Hypertrophic cardiomyopathy March 11:28am ICD (implantable cardioverter-defibrilla tor) in place March 28, 2024 11:28am Abdominal pain July 03, 2024 1:0 6pm Hypertrophic cardiomyopathy July 04, 2024 11:17am ICD (implantable cardioverter-defibrilla tor) in place July 04, 2024 11:17am Pacemaker July 04, 2024 11: 17am Hypertrophic cardiomyopathy July 10, 2024 1:28pm ICD (implantable cardioverter-defibrilla tor) in place July 10, 2024 1:28pm Abdominal pain July 12, 2024 9:45am GERD (gastroesophageal reflux disease) M ay 2024 9:45am (HFpEF) heart failure with preserved eje ction fraction July 21, 2024 12:26am Abdominal pain July 21, 2024 12:26 am Acute systolic congestive heart failure, NYHA class 3 July 21, 2024 12:26am Elevated troponin July 21, 2024 12:26 am Heart failure of unknown etiology July 212024 12:26am Hemorrhagic gastritis July 21, 2024 12: 26am HFrEF (heart failure with reduced ejecti on fraction) July 21, 2024 12:26am History of hypertrophic cardiomyopathy M ay 2024 12:26am Hypertrophic cardiomyopathy July 21 12:26am ICD (implantable cardioverter-defibrilla tor) in place July 21, 2024 12:26am Leukocytosis July 21, 2024 12:26 am Nausea & vomiting July 21, 2024 12:26 am Pacemaker July 21, 2024 12:26 am Presence of implantable cardioverter-def ibrillator (ICD) July 21, 2024 12:26am Pulmonary hypertension July 21, 2024 12 :26am Severe pulmonary hypertension July 21, 2024 12:26am Vegetation of heart valve July 21, 2024 12:26am Hypertension July 21, 2024 12:26 am Chief Complaint Admit Date DIZZINESS, NAUSEA, WOUND May 11, 2024 11:41pm abdominal pin July 01, 2024 7:5 1pm CROHNS July 03, 2024 1:0 6pm ABD PAIN July 03, 2024 1:3 0pm Pacer Check Remote July 04, 2024 9:0 0am 3 mos ICD f/u July 04, 2024 11: 17am Cardiac Clearance July 10, 2024 1:2 8pm AE CHF, NEAR SYNCOPE, ELEVATED TROPONIN, ELEVATED July 21, 2024 12:26am AE CHF, NEAR SYNCOPE, ELEVATED TROPONIN, ELEVATED July 21, 2024 7:53am AE CHF, NEAR SYNCOPE, ELEVATED TROPONIN, ELEVATED July 21, 2024 1:16pm AE CHF, NEAR SYNCOPE, ELEVATED TROPONIN, ELEVATED July 22, 2024 8:52am AE CHF, NEAR SYNCOPE, ELEVATED TROPONIN, ELEVATED July 22, 2024 11:57am AE CHF, NEAR SYNCOPE, ELEVATED TROPONIN, ELEVATED July 23, 2024 7:49am AE CHF, NEAR SYNCOPE, ELEVATED TROPONIN, ELEVATED July 23, 2024 8:26am AE CHF, NEAR SYNCOPE, ELEVATED TROPONIN, ELEVATED July 24, 2024 8:39am Test Result August 08, 2024 8:24a m Reason for Visit Admit Date Abdominal pain July 03, 2024 1:0 6pm Hypertrophic cardiomyopathy July 04, 2024 11:17am ICD (implantable cardioverter-defibrilla tor) in place July 04, 2024 11:17am Pacemaker July 04, 2024 11: 17am Hypertrophic cardiomyopathy July 10, 2024 1:28pm ICD (implantable cardioverter-defibrilla tor) in place July 10, 2024 1:28pm Abdominal pain July 12, 2024 9:45am GERD (gastroesophageal reflux disease) M ay 2024 9:45am Abdominal pain July 21, 2024 12:26 am Hemorrhagic gastritis July 21, 2024 12: 26am HFrEF (heart failure with reduced ejecti on fraction) July 21, 2024 12:26am Pulmonary hypertension July 21, 2024 12 :26am Vegetation of heart valve July 21, 2024 12:26am Elevated troponin July 21, 2024 12:26 am Nausea & vomiting July 21, 2024 12:26 am Acute systolic congestive heart failure, NYHA class 3 July 21, 2024 12:26am History of hypertrophic cardiomyopathy M ay 2024 12:26am Hypertension July 21, 2024 12:26 am Hypertrophic cardiomyopathy July 21 12:26am ICD (implantable cardioverter-defibrilla tor) in place July 21, 2024 12:26am Leukocytosis July 21, 2024 12:26 am Pacemaker July 21, 2024 12:26 am Presence of implantable cardioverter-def ibrillator (ICD) July 21, 2024 12:26am Severe pulmonary hypertension July 21, 2024 12:26am (HFpEF) heart failure with preserved eje ction fraction July 21, 2024 12:26am Heart failure of unknown etiology July 212024 12:26am Abdominal pain August 08, 2024 8:24a m GERD (gastroesophageal reflux disease) M ay 2024 8:24am Pulmonary hypertension August 08, 2024 8: 24am Chief Complaint Admit Date DIZZINESS, NAUSEA, WOUND May 11, 2024 11:41pm abdominal pin July 01, 2024 7:5 1pm CROHNS July 03, 2024 1:0 6pm ABD PAIN July 03, 2024 1:3 0pm Pacer Check Remote July 04, 2024 9:0 0am 3 mos ICD f/u July 04, 2024 11: 17am Cardiac Clearance July 10, 2024 1:2 8pm AE CHF, NEAR SYNCOPE, ELEVATED TROPONIN, ELEVATED July 21, 2024 12:26am AE CHF, NEAR SYNCOPE, ELEVATED TROPONIN, ELEVATED July 21, 2024 7:53am AE CHF, NEAR SYNCOPE, ELEVATED TROPONIN, ELEVATED July 21, 2024 1:16pm AE CHF, NEAR SYNCOPE, ELEVATED TROPONIN, ELEVATED July 22, 2024 8:52am AE CHF, NEAR SYNCOPE, ELEVATED TROPONIN, ELEVATED July 22, 2024 11:57am AE CHF, NEAR SYNCOPE, ELEVATED TROPONIN, ELEVATED July 23, 2024 7:49am AE CHF, NEAR SYNCOPE, ELEVATED TROPONIN, ELEVATED July 23, 2024 8:26am AE CHF, NEAR SYNCOPE, ELEVATED TROPONIN, ELEVATED July 24, 2024 8:39am Test Result August 08, 2024 8:24a m INT LABS August 08, 2024 9:26a m INT LABSPEC August 09, 2024 10:23 am flank August 11, 2024 10:26 am Reason for Visit Admit Date Abdominal pain July 03, 2024 1:0 6pm Hypertrophic cardiomyopathy July 04, 2024 11:17am ICD (implantable cardioverter-defibrilla tor) in place July 04, 2024 11:17am Pacemaker July 04, 2024 11: 17am Hypertrophic cardiomyopathy July 10, 2024 1:28pm ICD (implantable cardioverter-defibrilla tor) in place July 10, 2024 1:28pm Abdominal pain July 12, 2024 9:45am GERD (gastroesophageal reflux disease) M ay 2024 9:45am Abdominal pain July 21, 2024 12:26 am Hemorrhagic gastritis July 21, 2024 12: 26am HFrEF (heart failure with reduced ejecti on fraction) July 21, 2024 12:26am Pulmonary hypertension July 21, 2024 12 :26am Vegetation of heart valve July 21, 2024 12:26am Elevated troponin July 21, 2024 12:26 am Nausea & vomiting July 21, 2024 12:26 am Acute systolic congestive heart failure, NYHA class 3 July 21, 2024 12:26am History of hypertrophic cardiomyopathy M ay 2024 12:26am Hypertension July 21, 2024 12:26 am Hypertrophic cardiomyopathy July 21 12:26am ICD (implantable cardioverter-defibrilla tor) in place July 21, 2024 12:26am Leukocytosis July 21, 2024 12:26 am Pacemaker July 21, 2024 12:26 am Presence of implantable cardioverter-def ibrillator (ICD) July 21, 2024 12:26am Severe pulmonary hypertension July 21, 2024 12:26am (HFpEF) heart failure with preserved eje ction fraction July 21, 2024 12:26am Heart failure of unknown etiology July 212024 12:26am Abdominal pain August 08, 2024 8:24a m Diarrhea August 08, 2024 8:24a m GERD (gastroesophageal reflux disease) M ay 2024 8:24am Pulmonary hypertension August 08, 2024 8: 24am Chief Complaint Admit Date DIZZINESS, NAUSEA, WOUND May 11, 2024 11:41pm abdominal pin July 01, 2024 7:5 1pm CROHNS July 03, 2024 1:0 6pm ABD PAIN July 03, 2024 1:3 0pm Pacer Check Remote July 04, 2024 9:0 0am 3 mos ICD f/u July 04, 2024 11: 17am Cardiac Clearance July 10, 2024 1:2 8pm AE CHF, NEAR SYNCOPE, ELEVATED TROPONIN, ELEVATED July 21, 2024 12:26am AE CHF, NEAR SYNCOPE, ELEVATED TROPONIN, ELEVATED July 21, 2024 7:53am AE CHF, NEAR SYNCOPE, ELEVATED TROPONIN, ELEVATED July 21, 2024 1:16pm AE CHF, NEAR SYNCOPE, ELEVATED TROPONIN, ELEVATED July 22, 2024 8:52am AE CHF, NEAR SYNCOPE, ELEVATED TROPONIN, ELEVATED July 22, 2024 11:57am AE CHF, NEAR SYNCOPE, ELEVATED TROPONIN, ELEVATED July 23, 2024 7:49am AE CHF, NEAR SYNCOPE, ELEVATED TROPONIN, ELEVATED July 23, 2024 8:26am AE CHF, NEAR SYNCOPE, ELEVATED TROPONIN, ELEVATED July 24, 2024 8:39am Test Result August 08, 2024 8:24a m INT LABS August 08, 2024 9:26a m INT LABSPEC August 09, 2024 10:23 am flank August 11, 2024 10:26 am RUQ PAIN W/ WORSENING LFT'S August 20 5:47pm Additional Source Comments INFORMATION SOURCE (unrecogn ized section and content) DATE CREATED AUTHOR 08/27/2017 [facility] DATE CREATED AUTHOR AUTHOR'S ORGANIZ ATION 08/29/2017 [facility] DATE CREATED AUTHOR AUTHOR'S ORGANIZ ATION 03/22/2020 [facility] DATE CREATED AUTHOR AUTHOR'S ORGANIZ ATION 03/23/2020 [facility] DATE CREATED AUTHOR AUTHOR'S ORGANIZ ATION 04/17/2020 [facility] DATE CREATED AUTHOR AUTHOR'S ORGANIZ ATION 11/04/2020 [facility] DATE CREATED AUTHOR AUTHOR'S ORGANIZ ATION 04/28/2021 [facility] DATE CREATED AUTHOR AUTHOR'S ORGANIZ ATION 11/12/2023 [facility] ([place]) DATE CREATED AUTHOR AUTHOR'S ORGANIZ ATION 01/07/2024 [facility] DATE CREATED AUTHOR AUTHOR'S ORGANIZ ATION 07/16/2024 [facility] DATE CREATED AUTHOR AUTHOR'S ORGANIZ ATION 08/12/2024 [facility] DATE CREATED AUTHOR AUTHOR'S ORGANIZ ATION 08/16/2024 [facility] DATE CREATED AUTHOR AUTHOR'S ORGANIZ ATION 08/19/2024 [facility] DATE CREATED AUTHOR AUTHOR'S ORGANIZ ATION 08/20/2024 [facility] Goals (unrecognized section and content) Goals may be documented in a n alternate sectionGoals may be documented in an alternate sectionGoals may be documented in an alternate sectionGoals may be documented in an alternate sectionGoals may be documented in an alternate sectionGoals may be documented in an alternate section No data available for this sectionGoals may be documented in an alternate section Care Teams (unrecognized sec tion and content) Team Status: Active Member Role Status Dates Dr. Dex Sutherland MD Primary Care Provider Active Team Status: Inactive Member Role Status Dates Dr. Dex Sutherland MD Primary Care Provider Active Dr. Babar Wood DO Referring Provider, Emergency Pr ovider Active Team Status: Inactive Member Role Status Dates Dr. 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 Dex Sutherland MD Primary Care Provider Active Start: March 28, 2024 End: March 28, 2024 Dr. Jose Francisco Santamaria MD Attending Provider Active S tart: March 28, 2024 End: March 28, 2024 Team Status: Inactive Member Role Status Dates Dr. Dex Sutherland MD Primary Care Provider Active Start: March 28, 2024 End: March 28, 2024 Dr. Dex Sutherland MD Referring Provider Active Start: March 28, 2024 End: March 28, 2024 Dr. Jose Francisco Santamarai MD Attending Provider Active S tart: March 28, 2024 End: March 28, 2024 Team Status: Inactive Member Role Status Dates Dr. Dex Sutherland MD Primary Care Provider Active Start: May 11, 2024 End: May 12, 2024 Dr. Bimal Cortez MD Attending Provider Active Start: May 11, 2024 End: May 12, 2024 Dr. Bimal Cortez MD Emergency Provider Active Start: May 11, 2024 End: May 12, 2024 Team Status: Inactive Member Role Status Dates Dr. Dex Sutherland MD Primary Care Provider Active Start: July 01, 2024 End: July 01, 2024 Dr. Babar Wood DO Emergency Provider Active Start: July 01, 2024 End: July 01, 2024 Team Status: Inactive Member Role Status Dates Dr. Dex Sutherland MD Primary Care Provider Active Start: July 01, 2024 End: July 01, 2024 Dr. Babar Wood DO Attending Provider Active Start: July 01, 2024 End: July 01, 2024 Dr. Babar Wood DO Emergency Provider Active Start: July 01, 2024 End: July 01, 2024 Team Status: Inactive Member Role Status Dates Dr. Dex Sutherland MD Primary Care Provider Active Start: July 03, 2024 End: July 03, 2024 Dr. Dex Sutherland MD Referring Provider Active Start: July 03, 2024 End: July 03, 2024 MARCIO Camp Attending Provider Active Start: July 03, 2024 End: July 03, 2024 Team Status: Inactive Member Role Status Dates Dr. Dex Sutherland MD Primary Care Provider Active Start: July 03, 2024 End: July 03, 2024 Dr. Nabor Frey DO Attending Provider Active Start: July 03, 2024 End: July 03, 2024 Dr. Nabor Frey DO Emergency Provider Active Start: July 03, 2024 End: July 03, 2024 Team Status: Inactive Member Role Status Dates Dr. Dex Sutherland MD Primary Care Provider Active Start: July 04, 2024 End: July 04, 2024 Dr. Jose Francisco Santamaria MD Attending Provider Active S tart: July 04, 2024 End: July 04, 2024 Team Status: Inactive Member Role Status Dates Dr. Dex Sutherland MD Primary Care Provider Active Start: July 04, 2024 End: July 04, 2024 Dr. Dex Sutherland MD Referring Provider Active Start: July 04, 2024 End: July 04, 2024 Dr. Jose Francisco Santamaria MD Attending Provider Active S tart: July 04, 2024 End: July 04, 2024 Team Status: Inactive Member Role Status Dates Dr. Dex Sutherland MD Primary Care Provider Active Start: July 10, 2024 End: July 10, 2024 Dr. Dex Sutherland MD Referring Provider Active Start: July 10, 2024 End: July 10, 2024 Xochitl Bourne PA, PA Attending Provider Active Start: July 10, 2024 End: July 10, 2024 Team Status: Inactive Member Role Status Dates Dr. Dex Sutherland MD Primary Care Provider Active Start: July 12, 2024 End: July 12, 2024 Dr. Dex Sutherland MD Referring Provider Active Start: July 12, 2024 End: July 12, 2024 Dr. Quang Myles DO Attending Provider Active Start: July 12, 2024 End: July 12, 2024 Team Status: Active Member Role Status Dates Dr. Dex Sutherland MD Primary Care Provider Active Start: July 12, 2024 Dr. Dex Sutherland MD Referring Provider Active Start: July 12, 2024 Dr. Quang Myles DO Attending Provider Active Start: July 12, 2024 Dr. Quang Myles DO Other Provider Active St art: July 12, 2024 Team Status: Active Member Role Status Dates Dr. Dex Sutherland MD Primary Care Provider Active Start: July 20, 2024 Dr. Carlos Nair DO Emergency Provider Active Start: July 20, 2024 Dr. Sergio Umaña DO Admit Provider Active Start: July 20, 2024 Dr. Sergio Umaña DO Attending Provider Active Start: July 20, 2024 Team Status: Inactive Member Role Status Dates Dr. Dex Sutherland MD Primary Care Provider Active Start: July 21, 2024 End: July 24, 2024 Dr. Carlos Nair DO Emergency Provider Active Start: July 21, 2024 End: July 24, 2024 Dr. Sergio Umaña DO Admit Provider Active Start: July 21, 2024 End: July 24, 2024 Dr. Sergio Umaña DO Other Provider Active Start: July 21, 2024 End: July 24, 2024 Dr. Filemon Subramanian MD Other Provider Active Start: July 21, 2024 End: July 24, 2024 Dr. Chetan Grant MD Other Provider Active St art: July 21, 2024 End: July 24, 2024 Dr. Saman Clay MD Other Provider Active Star t: July 21, 2024 End: July 24, 2024 Dr. Augustin Potts MD Other Provider Active Sta rt: July 21, 2024 End: July 24, 2024 Dr. Don Victoria MD Other Provider Active Star t: July 21, 2024 End: July 24, 2024 Dr. Jose Francisco Santamaria MD Other Provider Active Start : July 21, 2024 End: July 24, 2024 Dr. Cleo Huerta MD Other Provider Active Star t: July 21, 2024 End: July 24, 2024 Dr. Mercy Bishop MD Other Provider Active St art: July 21, 2024 End: July 24, 2024 Dr. Sarita Flores MD Other Provider Active Start: July 21, 2024 End: July 24, 2024 Dr. Vincent Hdz MD Other Provider Active S tart: July 21, 2024 End: July 24, 2024 Dr. Cliff Car MD Other Provider Active Start: July 21, 2024 End: July 24, 2024 Bogdan Bates SENIOR INFRASTRUCTURE ENGINEER, SENIOR INFRASTRUCTURE ENGINEER-C Other Provider Active Start : July 21, 2024 End: July 24, 2024 Xochitl BUCKLEY, PA Other Provider Active Start: July 21, 2024 End: July 24, 2024 MARCIO Lemus Other Provider Active Start: July 21, 2024 End: July 24, 2024 Dr. Willian Ovalles , Attending Provider Active Start: July 21, 2024 End: July 24, 2024 Team Status: Active Member Role Status Dates Dr. Dex Sutherland MD Primary Care Provider Active Start: July 21, 2024 Dr. Carlos Nair DO Emergency Provider Active Start: July 21, 2024 Dr. Sergio Umaña DO Admit Provider Active Start: July 21, 2024 Dr. Sergio Umaña DO Other Provider Active Start: July 21, 2024 Dr. Filemon Subramanian MD Other Provider Active Start: July 21, 2024 Dr. Chetan Grant MD Other Provider Active St art: July 21, 2024 Dr. Saman Clay MD Other Provider Active Star t: July 21, 2024 Dr. Augustin Potts MD Other Provider Active Sta rt: July 21, 2024 Dr. Don Victoria MD Other Provider Active Star t: July 21, 2024 Dr. Jose Francisco Santamaria MD Other Provider Active Start : July 21, 2024 Dr. Cleo Huerta MD Other Provider Active Star t: July 21, 2024 Dr. Mercy Bishop MD Other Provider Active St art: July 21, 2024 Dr. Sarita Flores MD Other Provider Active Start: July 21, 2024 Dr. Vincent Hdz MD Other Provider Active S tart: July 21, 2024 Dr. Cliff Car MD Other Provider Active Start: July 21, 2024 Bogdan Bates SENIOR INFRASTRUCTURE ENGINEER, SENIOR INFRASTRUCTURE ENGINEER-C Other Provider Active Start : July 21, 2024 Xochitl Bourne PA, PA Other Provider Active Start: July 21, 2024 MARCIO Lemus Other Provider Active Start: July 21, 2024 Dr. Willian Ovalles DO Attending Provider Active Start: July 21, 2024 Dr. Willian Ovalles DO Other Provider Active Star t: July 21, 2024 Team Status: Active Member Role Status Dates Dr. Dex Sutherland MD Primary Care Provider Active Start: July 21, 2024 Dr. Carlos Nair , Emergency Provider Active Start: July 21, 2024 Dr. Sergio Umaña , Admit Provider Active Start: July 21, 2024 Dr. Sergio Umaña , Other Provider Active Start: July 21, 2024 Dr. Filemon Subramanian MD Other Provider Active Start: July 21, 2024 Dr. Chetan Grant MD Other Provider Active St art: July 21, 2024 Dr. Saman Clay MD Attending Provider Active Start: July 21, 2024 Dr. Saman Clay MD Other Provider Active Star t: July 21, 2024 Dr. Augustin Potts MD Other Provider Active Sta rt: July 21, 2024 Dr. Don Victoria MD Other Provider Active Star t: July 21, 2024 Dr. Jose Francisco Santamaria MD Other Provider Active Start : July 21, 2024 Dr. Cleo Huerta MD Other Provider Active Star t: July 21, 2024 Dr. Mercy Bishop MD Other Provider Active St art: July 21, 2024 Dr. Sarita Flores MD Other Provider Active Start: July 21, 2024 Dr. Vincent Hdz MD Other Provider Active S tart: July 21, 2024 Dr. Cliff Car MD Other Provider Active Start: July 21, 2024 Bogdan Bates SENIOR INFRASTRUCTURE ENGINEER, SENIOR INFRASTRUCTURE ENGINEER-C Other Provider Active Start : July 21, 2024 Xochitl Bourne PA, PA Other Provider Active Start: July 21, 2024 MARCIO Lemus Other Provider Active Start: July 21, 2024 Dr. Willian Ovalles , DO Other Provider Active Star t: July 21, 2024 Team Status: Active Member Role Status Dates Dr. Dex Sutherland MD Primary Care Provider Active Start: July 22, 2024 Dr. Carlos Nair , Emergency Provider Active Start: July 22, 2024 Dr. Sergio Umaña DO Admit Provider Active Start: July 22, 2024 Dr. Sergio Umaña , Other Provider Active Start: July 22, 2024 Dr. Filemon Subramanian MD Other Provider Active Start: July 22, 2024 Dr. Chetan Grant MD Other Provider Active St art: July 22, 2024 Dr. Saman Clay MD Other Provider Active Star t: July 22, 2024 Dr. Augustin Potts MD Other Provider Active Sta rt: July 22, 2024 Dr. Don Victoria MD Other Provider Active Star t: July 22, 2024 Dr. Jose Francisco Santamaria MD Other Provider Active Start : July 22, 2024 Dr. Cleo Huerta MD Other Provider Active Star t: July 22, 2024 Dr. Mercy Bishop MD Other Provider Active St art: July 22, 2024 Dr. Sarita Flores MD Other Provider Active Start: July 22, 2024 Dr. Vincent Hdz MD Other Provider Active S tart: July 22, 2024 Dr. Cliff Car MD Other Provider Active Start: July 22, 2024 Bogdan Bates SENIOR INFRASTRUCTURE ENGINEER, SENIOR INFRASTRUCTURE ENGINEER-C Other Provider Active Start : July 22, 2024 Xochitl Bourne PA, PA Other Provider Active Start: July 22, 2024 MARCIO Lemus Other Provider Active Start: July 22, 2024 Dr. Willian Ovalles DO Attending Provider Active Start: July 22, 2024 Dr. Willian Ovalles DO Other Provider Active Star t: July 22, 2024 Team Status: Active Member Role Status Dates Dr. Dex Sutherland MD Primary Care Provider Active Start: July 22, 2024 Dr. Carlos Nair , Emergency Provider Active Start: July 22, 2024 Dr. Sergio Umaña DO Admit Provider Active Start: July 22, 2024 Dr. Sergio Umaña DO Other Provider Active Start: July 22, 2024 Dr. Filemon Subramanian MD Other Provider Active Start: July 22, 2024 Dr. Chetan Grant MD Other Provider Active St art: July 22, 2024 Dr. Saman Clay MD Attending Provider Active Start: July 22, 2024 Dr. Saman Clya MD Other Provider Active Star t: July 22, 2024 Dr. Augustin Potts MD Other Provider Active Sta rt: July 22, 2024 Dr. Don Victoria MD Other Provider Active Star t: July 22, 2024 Dr. Jose Francisco Santamaria MD Other Provider Active Start : July 22, 2024 Dr. Cleo Huerta MD Other Provider Active Star t: July 22, 2024 Dr. Mercy Bishop MD Other Provider Active St art: July 22, 2024 Dr. Sarita Flores MD Other Provider Active Start: July 22, 2024 Dr. Vincent Hdz MD Other Provider Active S tart: July 22, 2024 Dr. Cliff Car MD Other Provider Active Start: July 22, 2024 Bogdan Bates SENIOR INFRASTRUCTURE ENGINEER, SENIOR INFRASTRUCTURE ENGINEER-C Other Provider Active Start : July 22, 2024 Xochitl BUCKLEY, PA Other Provider Active Start: July 22, 2024 MARCIO Lemus Other Provider Active Start: July 22, 2024 Dr. Willian Ovalles , DO Other Provider Active Star t: July 22, 2024 Team Status: Active Member Role Status Dates Dr. Dex Sutherland MD Primary Care Provider Active Start: July 23, 2024 Dr. Carlos Nair , DO Emergency Provider Active Start: July 23, 2024 Dr. Sergio Umaña , DO Admit Provider Active Start: July 23, 2024 Dr. Sergio Umaña , DO Other Provider Active Start: July 23, 2024 Dr. Filemon Subramanian MD Other Provider Active Start: July 23, 2024 Dr. Chetan Grant MD Other Provider Active St art: July 23, 2024 Dr. Saman Clay MD Other Provider Active Star t: July 23, 2024 Dr. Augustin Potts MD Other Provider Active Sta rt: July 23, 2024 Dr. Don Victoria MD Other Provider Active Star t: July 23, 2024 Dr. Jose Francisco Santamaria MD Other Provider Active Start : July 23, 2024 Dr. Cleo Huerta MD Other Provider Active Star t: July 23, 2024 Dr. Mercy Bishop MD Other Provider Active St art: July 23, 2024 Dr. Sarita Flores MD Other Provider Active Start: July 23, 2024 Dr. Vincent Hdz MD Other Provider Active S tart: July 23, 2024 Dr. Cliff Car MD Other Provider Active Start: July 23, 2024 Bogdan Bates SENIOR INFRASTRUCTURE ENGINEER, SENIOR INFRASTRUCTURE ENGINEER-C Other Provider Active Start : July 23, 2024 Xochitl Bourne PA, PA Other Provider Active Start: July 23, 2024 MARCIO Lemus Other Provider Active Start: July 23, 2024 Dr. Willian Ovalles DO Attending Provider Active Start: July 23, 2024 Dr. Willian Ovalles DO Other Provider Active Star t: July 23, 2024 Team Status: Active Member Role Status Dates Dr. Dex Sutherland MD Primary Care Provider Active Start: July 23, 2024 Dr. Willian Colón MD Attending Provider Active S tart: July 23, 2024 Team Status: Active Member Role Status Dates Dr. Dex Sutherland MD Primary Care Provider Active Start: July 23, 2024 Dr. Carlos Korey , DO Emergency Provider Active Start: July 23, 2024 Dr. Sergio Umaña , DO Admit Provider Active Start: July 23, 2024 Dr. Sergio Umaña , DO Other Provider Active Start: July 23, 2024 Dr. Filemon Subramanian MD Other Provider Active Start: July 23, 2024 Dr. Chetan Grant MD Other Provider Active St art: July 23, 2024 Dr. Saman Clay MD Other Provider Active Star t: July 23, 2024 Dr. Augustin Potts MD Other Provider Active Sta rt: July 23, 2024 Dr. Don Victoria MD Other Provider Active Star t: July 23, 2024 Dr. Jose Francisco Santamaria MD Other Provider Active Start : July 23, 2024 Dr. Cleo Huerta MD Other Provider Active Star t: July 23, 2024 Dr. Mercy Bishop MD Attending Provider Active Start: July 23, 2024 Dr. Mercy Bishop MD Other Provider Active St art: July 23, 2024 Dr. Sarita Flores MD Other Provider Active Start: July 23, 2024 Dr. Vincent Hdz MD Other Provider Active S tart: July 23, 2024 Dr. Cliff Car MD Other Provider Active Start: July 23, 2024 Bogdan Bates SENIOR INFRASTRUCTURE ENGINEER, SENIOR INFRASTRUCTURE ENGINEER-C Other Provider Active Start : July 23, 2024 Xochitl Bourne PA, PA Other Provider Active Start: July 23, 2024 MARCIO Lemus Other Provider Active Start: July 23, 2024 Dr. Willian Ovalles , Other Provider Active Star t: July 23, 2024 Team Status: Active Member Role Status Dates Dr. Dex Sutherland MD Primary Care Provider Active Start: July 24, 2024 Dr. Carlos Nair , Emergency Provider Active Start: July 24, 2024 Dr. Sergio Umaña , DO Admit Provider Active Start: July 24, 2024 Dr. Sergio Umaña , DO Other Provider Active Start: July 24, 2024 Dr. Filemon Subramanian MD Other Provider Active Start: July 24, 2024 Dr. Chetan Grant MD Other Provider Active St art: July 24, 2024 Dr. Saman Clay MD Other Provider Active Star t: July 24, 2024 Dr. Augustin Potst MD Other Provider Active Sta rt: July 24, 2024 Dr. oDn Victoria MD Other Provider Active Star t: July 24, 2024 Dr. Jose Francisco Santamaria MD Other Provider Active Start : July 24, 2024 Dr. Cleo Huerta MD Other Provider Active Star t: July 24, 2024 Dr. Mercy Bishop MD Other Provider Active St art: July 24, 2024 Dr. Sarita Flores MD Other Provider Active Start: July 24, 2024 Dr. Vincent Hdz MD Other Provider Active S tart: July 24, 2024 Dr. Cliff Car MD Other Provider Active Start: July 24, 2024 Bogdan Bates SENIOR INFRASTRUCTURE ENGINEER, SENIOR INFRASTRUCTURE ENGINEER-C Other Provider Active Start : July 24, 2024 Xochitl Bourne PA, PA Other Provider Active Start: July 24, 2024 MARCIO Lemus Other Provider Active Start: July 24, 2024 Dr. Willian Ovalles , Attending Provider Active Start: July 24, 2024 Dr. Willian Ovalles , Other Provider Active Star t: July 24, 2024 Pie Crust Mixer Relationship Specialty Start Date End Date Dex Sutherland MD [address] [address] PCP - General 10/19/06 Asuncion Cheung, pattern designer Coordinator 05/14/14 Pie Crust Mixer Relationship Specialty Start Date End Date Dex Sutherland MD [address] [address] PCP - General 10/19/06 Asuncion Cheung, pattern designer Coordinator 05/14/14 Pie Crust Mixer Relationship Specialty Start Date End Date Dex Sutherland MD [address] [address] PCP - General 10/19/06 Asuncion Cheung, pattern designer Coordinator 05/14/14 Team Status: Active Member Role Status Dates Dr. Dex Sutherland MD Primary Care Provider Active Start: July 23, 2024 Dr. Willian Colón MD Attending Provider Active S tart: July 23, 2024 Dr. Sergio Umaña DO Referring Provider Active Start: July 23, 2024 Team Status: Inactive Member Role Status Dates Dr. Dex Sutherland MD Primary Care Provider Active Start: August 08, 2024 End: August 08, 2024 Dr. Dex Sutherland MD Referring Provider Active Start: August 08, 2024 End: August 08, 2024 Dr. Quang Myles DO Attending Provider Active Start: August 08, 2024 End: August 08, 2024 Pie Crust Mixer Relationship Specialty Start Date End Date Dex Sutherland MD [address] [place], [place] [phone] PCP - General Family Medicine 07/01/24 Team Status: Active Member Role Status Dates Dr. Dxe Sutherland MD Primary Care Provider Active Start: August 08, 2024 Dr. Quang Myles DO Attending Provider Active Start: August 08, 2024 Dr. Quang Myles DO Referring Provider Active Start: August 08, 2024 Team Status: Active Member Role Status Dates Dr. Dex Sutherland MD Primary Care Provider Active Start: August 09, 2024 Dr. Quang Myles DO Attending Provider Active Start: August 09, 2024 Dr. Quang Myles DO Referring Provider Active Start: August 09, 2024 Team Status: Inactive Member Role Status Dates Dr. Dex Sutherland MD Primary Care Provider Active Start: August 11, 2024 End: August 11, 2024 Dr. Gage Sharma DO Emergency Provider Activ e Start: August 11, 2024 End: August 11, 2024 Team Status: Inactive Member Role Status Dates Dr. Dex Sutherland MD Primary Care Provider Active Start: August 08, 2024 End: August 08, 2024 Dr. Quang Myles DO Attending Provider Active Start: August 08, 2024 End: August 08, 2024 Dr. Quang Myles DO Referring Provider Active Start: August 08, 2024 End: August 08, 2024 Pie Crust Mixer Relationship Specialty Start Date End Date Dex Sutherland MD [facility] [phone] PCP - General Family Medicine 08/15/24 Team Status: Inactive Member Role Status Dates Dr. Dex Sutherland MD Primary Care Provider Active Start: August 09, 2024 End: August 09, 2024 Dr. Quang Myles DO Attending Provider Active Start: August 09, 2024 End: August 09, 2024 Dr. Quang Myles DO Referring Provider Active Start: August 09, 2024 End: August 09, 2024 Team Status: Inactive Member Role Status Dates Dr. Dex Sutehrland MD Primary Care Provider Active Start: August 11, 2024 End: August 11, 2024 Dr. Gage Sharma DO Attending Provider Activ e Start: August 11, 2024 End: August 11, 2024 Dr. Gage Sharma DO Emergency Provider Activ e Start: August 11, 2024 End: August 11, 2024 Team Status: Active Member Role Status Dates Dr. Dex Sutherland MD Primary Care Provider Active Start: August 20, 2024 Dr. Simona Fernandez DO Emergency Provider Active Start: August 20, 2024 Dr. Lopez Larios DO Admit Provider Active Start: August 20, 2024 Dr. Lopez Larios DO Attending Provider Active Start: August 20, 2024 Reason for Visit (unrecogniz ed section and content) Reason Onset Date Comments Shortness of Breath 07/04/2023 Reason Onset Date Comments Abdominal Pain 07/01/2024 Reason Comments Spirometry Specialty Diagnoses / Procedures Referred By Annalisa t Referred To Contact [facility] IN[facility]IENT Diagnoses Endocarditis Procedures [id number] [place] [address] Phone: tel: Referral ID Status Reason Start Date Expiration Date Visits Re quested Visits Authorized [id number] 1 Reason Onset Date Comments Transition Of Care 07/30/2024 TCM Pharmacy- Hospital discharge 07/27/24 Reason Onset Date Comments Back Pain 08/10/2024 Source Comments (unrecognize d section and content) In the event this informatio n is protected by the Federal Confidentiality of Alcohol and Drug Abuse Patient Records regulations: The Federal rules restrict any use of the information to criminally investigate or prosecute any alcohol or drug abuse patient.[facility] the event this information is protected by the Federal Confidentiality of Alcohol and Drug Abuse Patient Records regulations: The Federal rules restrict any use of the information to criminally investigate or prosecute any alcohol or drug abuse patient.[facility] the event this information is protected by the Federal Confidentiality of Alcohol and Drug Abuse Patient Records regulations: The Federal rules restrict any use of the information to criminally investigate or prosecute any alcohol or drug abuse patient.[facility] the event this information is protected by the Federal Confidentiality of Alcohol and Drug Abuse Patient Records regulations: The Federal rules restrict any use of the information to criminally investigate or prosecute any alcohol or drug abuse patient.[facility] FOR RECORDS PERTAINING TO PATIENTS WHO ARE OR HAVE BEEN ENROLLED IN A CHEMICAL DEPENDENCY/SUBSTANCEABUSE PROGRAM, SOME INFORMATION MAY BE OMITTED. This clinical summary was aggregated from multiple sources. Caution should be exercised in using it in the provision of clinical care. This summary normalizes information from multiple sources, and as a consequence, information in this document may materially change the coding, format and clinical context of patient data. In addition, data may be omitted in some cases. CLINICAL DECISIONS SHOULD BE BASED ON THE PRIMARY CLINICAL RECORDS. [employer] provides no warranty or guarantee of the accuracy or completeness of information in this document.
[2024-08-21] MEDS: oxyCODONE 5 MG Tablet PO ×3 (02:37→20:34)
[2024-08-21] MEDS: HYDROmorphone 0.5 MG/0.5 ML SYRINGE IV ×4 (05:03→21:01)
[2024-08-21 06:19] LABS: Hematocrit 39.1 % (37-47); Hemoglobin 12.6 g/dL (12.0-15.0); Mean Corp Hgb Conc 32.2 g/dL (32-36); Mean Corpuscular Hgb 31.2 pg (27.0-32.0); Mean Corpuscular Volume 96.8 fL (81-99); Mean Platelet Vol. 10.4 fl (6.2-12.0); Platelet Count 402 K/mm3 (150-450); RBC Distribution Width CV 13.7 % (11.6-14.6); RBC Distribution Width SD 48.3 fl (35.1-43.9); Red Blood Count 4.04 M/mm3 (4.2-5.4); White Blood Count 10.5 K/mm3 (4.4-11.0)
[2024-08-21 06:43] LABS: ALB/GLOB Ratio 1.4 RATIO (0.9-2.4); AST(SGOT) 535 U/L (<=31); Alanine Aminotransfer ALT/SGPT 383 U/L (<=34); Albumin, Serum 4.2 g/dL (3.5-5.0); Alkaline Phosphatase 197 U/L (35-104); Anion Gap 13 (5-15); BUN 14 mg/dL (4-19); BUN/Creat Ratio 13.5 RATIO (10-20); Calcium,Total 9.5 mg/dL (7.6-11.0); Chloride 100 mmol/L (98-108); EST Glomerular Filtration Rate 71 (>60); Estimated Creatinine Clearance 61.99 ml/min (50-250); Globulin 2.9 g/dL (2.2-4.2); Glucose 83 mg/dL (70-99); Potassium 4.5 mmol/L (3.3-5.1); Protein, Total 7.1 g/dL (5.9-8.4); Sodium Level 135 mmol/L (133-145); Total Bilirubin 0.82 mg/dL (0.00-1.30)
[2024-08-21] MEDS: 0.9% Saline Lock 10 ML Syringe IV (09:14)
--- NOTE | 2024-08-21 14:56 | CASEMGMT ---
JAJA DOMINGUEZ Readmission Note: Pt was recently admitted 07/21-07/24/24 with CHF. Pt was transferred to [facility] due to reduced ejection fraction as well as increased pulmonary artery pressures. Patient has a history of hypertrophic cardiomyopathy, and a family history of that with a sister and father who both underwent heart transplants for the same. But given her worsening heart failure and the concern that she may need eventually a heart transplant it was recommended patient be transferred to tertiary facility with cardiology and evaluation to see if she would be a candidate for an eventual heart transplant. Pt presented to [facility] ED on 08/20/2024 with worsening RUQ abdominal pain. She initially presented to the ED on 07/01/[address] at that time showed thickening of the colon concerning for IBD. She had EGD and colonoscopy done on 07/[address] Myles. EGD showed acute gastritis with hemorrhage. Patient continued to have abdominal pain and saw Dr. Myles in the office on 08/08. Pt was scheduled for MRCP, but patient has had worsening pain and came to the ED. Pt states she she's been taking all meds as prescribed, has been following with Dr. Myles. Pt states she is scheduled for MRCP next week, but was feeling worse so she came in to the ED. Pt states she wishes to DC home, denies any needs at this time. JAJA DOMINGUEZ to follow for safe DC.
--- NOTE | 2024-08-21 15:31 | CHAPLAIN ---
Type of Pastoral Visit _x__ Initial Visit ___ Follow-up Visit ___ On-call Visit ___ General Patient Visit ___ Spiritual Assessment ___ Family Conference ___ Bereavement ___ Rapid Response ___ Code Blue ___ Other (describe below) Pastoral Care Referral From _x__ Patient ___ Family ___ Nurse ___ Physician ___ Surgery Assistant ___ Bark Skinner ___ Other (describe below) Sacrament/Intervention _x__ Active listening ___ Anointing ___ Methodist ___ Bereavement ___ Communion ___ Fariba exploration ___ ___ Life review ___ Prayer ___ Reconciliation ___ Sacrament of Sick _x__ Supportive presence ___ Wedding ___ Other (describe below) Pastoral Comments patient and spouse are in the room; RN is working on IV for the patient but welcomes the 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
--- NOTE | 2024-08-21 16:00 | FLU_PTH ---
PATIENT: SANDRA GARDNER LOC: [facility] U#:[id number] AGE/SX: 43/F ROOM: [facility] RE08/20/[address]: Dr. Taylor Tejeda MD : 1980 BED: 1 DIS: 08/24/2024 SPEC #: [id number] RECD: 08/21/24 19:32 STATUS: AGUSTINA REQ #: [id number] NASH: 08/21/24 16:[address]: Quang Myles DEPT: CYTOLOGY RECD BY: Nick Mcfarlane ENTERED: 08/22/24 09:33 SP TYPE: Fluid OTHR DR: DO Dr. Dex Amezquita MD Dr. Nana Yaa Koram, MD Tissues: A - Biliary tract, NOS B - Pancreatic duct, NOS Procedures: Special Stain Group II Surgery Specimen Level IV Surgery Specimen Level V Cytospin Fluid HEADER OPERATION: ERCP, sphincterotomy, balloon dilation, brushings PRE-OP DIAGNOSIS: Elevated liver enzymes, dilated pancreatic duct TISSUE SUBMITTED: A- Biliary brushings / brush tip for cytology, B- Pancreatic brushings / brush tip for cytology DIAGNOSIS CYTOLOGY A. Biliary brush, ERCP (cytospin, cellblock, smear x3): * No malignant cells identified. B. Pancreatic brush, ERCP (cytospin, cellblock, smear x3): * No malignant cells identified. CYTOLOGY STUDY Slides are reviewed. CYTOLOGY GROSS A. Received is 0.3 ml of yellow-cloudy fluid and 3 smears labeled with the patient's name and and designated per the requisition as Biliary brush. Submitted for cytology and cell block preparation. B. Received is 0.3 ml of okxma-blwzdi-dakqft fluid and 3 smears labeled with the patient's name and and designated per the requisition as Pancreatic brush. Submitted for cytology and cell block preparation. 08/22/2024 CPT: [id number]
[2024-08-21] MEDS: Lactated Ringers 1,000 ML 15 ML IV (16:47)
--- NOTE | 2024-08-21 16:54 | PRE.ANES_ITS ---
ASA Classification* ASA Classification ASA Classification: 3 and E Assessment & Plan Anesthesia* Anesthesia Assessment Anesthesia Assessment: Discussed sedation and/or anesthesia options, risks, benefits, and alternatives with patient/parents/legal guardian/POA. Questions invited. The patient/parents/legal guardian/POA seems to understand and agrees to proceed with anesthesia plan. Reviewed the physical assessment, medical history, allergy history and patient home medications list prior to surgery/procedure/anesthetic and documented any changes. Performed airway and anesthesia risk assessments. Anesthesia Type Anesthesia Type: General (AICD in place. Consider etomidate.) Anesthesia Focused Assessment* Temperature: 96.9 F Pulse Rate: 61 Blood Pressure: 128/67 Respiratory Rate: 16 Pulse Ox: 99 Airway Assessment Mouth opens: >3 cm Mallampati Score: II Labs Anesthesia Preop lab: CBC WBC 10.5 K/mm3 (4.4-11.0) 08/21/24 05:42 08/21/24 RBC 4.04 M/mm3 (4.2-5.4) L 08/21/24 05:42 08/21/24 Hgb 12.6 g/dL (12.0-15.0) 08/21/24 05:42 08/21/24 Hct 39.1 % (37-47) 08/21/24 05:42 08/21/24 Plt Count 402 K/mm3 (150-450) 08/21/24 05:42 08/21/24 CHEMISTRY Potassium 4.5 mmol/L (3.3-5.1) 08/21/24 05:42 08/21/24 Sodium 135 mmol/L (133-145) 08/21/24 05:42 08/21/24 Magnesium 1.9 mg/dL (1.5-2.2) 07/20/24 23:47 07/20/24 Phosphorus 3.7 mg/dL (2.7-4.5) 07/21/24 05:30 07/21/24 BUN 14 mg/dL (4-19) 08/21/24 05:42 08/21/24 Creatinine 1.00 mg/dL (0.70-1.20) 08/21/24 05:42 08/21/24 Glucose 83 mg/dL (70-99) 08/21/24 05:42 08/21/24 TSH 2.360 uIU/mL (0.300-4.200) 08/08/24 09:33 07/13 11/05 COAG PT 12.8 SECONDS (11.7-14.9) 08/08/24 09:33 Urine Test Negative Negative 08/11/24 10:40 08/11/24 Pre-Assessment Diagnosis/Proposed Procedure Planned Operative Procedure(s): ERCP Anesthesia History 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 When Was Last Pacemaker Check 07/04/2024 08/20/24 21:50 QUESTION #4 FULL TEXT: You/Your Family Experience fever (hyperthermia) with Anesthesia Last Oral Intake Last Oral intake: Last Oral Intake NPO since Meds taken in AM with sips of water? 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 - child welfare manager: PONV - child welfare manager Female HX of Motion Sickness HX of N/V After Surgery Non-Smoker Duration of Surgery greater than 60 minutes Number of Risk Factors PONV Score Height & Weight Height & Weight: Anesthesia: Height & Weight Height 5 ft 4 in 08/21/24 16:39 Weight: 57.4 kg 08/21/24 16:39 Body Mass Index (BMI) 21.7 08/21/24 16:39 Respiratory Assessment Respiratory Assessment - child welfare manager: Respiratory Tract Infection Hx - child welfare manager Hx Respiratory Tract Infection No 08/20/24 21:50 STOP Sleep Apnea STOP Sleep Apnea - child welfare manager: STOP Sleep Apnea - child welfare manager Hx Hypertension No 08/20/24 18:53 Hx Sleep Apnea No 08/20/24 18:53 CPAP BIPAP Do you snore loudly (louder Yes 08/20/24 18:53 than talking or can be heard Do you often feel tired/ Yes 08/20/24 18:53 fatigued/ sleepy during daytime? Has anyone observed you stop No 08/20/24 18:53 breathing during sleep? STOP Results Positive 08/20/24 18:53 QUESTION #5 FULL TEXT : Do you snore loudly (louder than talking or can be heard through closed doors)? Tobacco Use History Tobacco Use History - child welfare manager: Tobacco Use History - child welfare manager Tobacco Use Smoking Status Current every day smoker 08/20/24 18:53 Hx Tobacco Use Yes 08/20/24 18:53 Years Smoking Packs Smoked per Day Smoking Cessation Date was within the last 15 years Hx Smoking Cessation Date Hx Smoking Cessation No 08/20/24 18:53 Counseling Hematologic Medial History Hematologic Hx - child welfare manager: Hematologic Medical Hx - advocacy director Hx of Blood Transfusion No 08/20/24 18:53 Hx of Transfusion in last 3 No 08/20/24 18:53 Months Date of Last Transfusion (if within last 3 months) Ever experience any problems No 08/20/24 18:53 with transfusion(s)? Specify any problems Hx of Preganancy in last 3 N/A 08/20/24 18:53 Months Nurse Filling Out Transfusion [id number] 08/20/24 18:53 & Questions: Date: 08/20/24 08/20/24 18:53 Time: 19:04 08/20/24 18:53 Patient unable to answer at this time (ie. confused, unrespo /Reproduction History /Reproductive History - child welfare manager: /Reproductive Hx- child welfare manager Hx Now No 08/21/24 08:33 Gestational Age (in weeks): EDC: Hx Hx Para Hx Section SAB No 08/21/24 08:33 Active Medications Active Medications: Current Medications Generic Name Dose Route Start Last Admin Trade Name Freq PRN Reason Stop Dose Admin Acetaminophen 650 mg 08/20/24 19:00 Acetaminophen 325 Mg Tablet PO Q6H PRN PRN Pain 1-10 Or Fever>100.7 Alprazolam 0.5 mg 08/20/24 22:00 08/21/24 11:18 Alprazolam 0.5 Mg Tablet PO Not Given BID PIA Enoxaparin Sodium 40 mg 08/21/24 10:00 08/21/24 11:17 Enoxaparin 40 Mg/0.4 Ml Syringe SC Not Given DAILY PIA Hydromorphone HCl 0.5 mg 08/20/24 19:00 08/21/24 13:28 Hydromorphone 0.5 Mg/0.5 Ml Syringe IV 0.5 mg Q4H PRN PRN Administration Pain Score 6-10 Sodium Chloride 250 mls @ 15 mls/hr 08/20/24 19:01 IV .[id number] PRN Saline Flush Sodium Chloride 250 mls @ 15 mls/hr 08/20/24 19:01 IV .[id number] PRN Additional IVPB Infusion Lactated Ringer's 1,000 mls @ 15 mls/hr 08/21/24 16:45 08/21/24 16:47 IV 15 mls/hr .Q48H PIA Administration Iopamidol 0 ml 08/21/24 08:45 Contrast Allergy Safety Check IV X1 PIA Meloxicam 15 mg 08/21/24 10:00 08/21/24 11:17 Meloxicam 15 Mg Tablet PO Not Given DAILY [facility] Metoprolol Succinate 25 mg 08/21/24 10:00 08/21/24 11:18 Metoprolol(Xl)Succ 25 Mg Tablet PO Not Given DAILY [facility] Protocol Ondansetron HCl 4 mg 08/20/24 19:00 Ondansetron 4 Mg/2 Ml Vial IV Q8H PRN PRN NAUSEA/VOMITING Oxycodone HCl 5 mg 08/20/24 19:00 08/21/24 06:37 Oxycodone 5 Mg Tablet PO 5 mg Q4H PRN PRN Administration Pain Score 4-10 Pantoprazole Sodium 40 mg 08/20/24 22:00 08/21/24 11:18 Pantoprazole Sodium 40 Mg Tablet PO Not Given BID [facility] Scopolamine HBr 1 patch 08/21/24 10:00 08/21/24 13:23 Scopolamine 1mg/72hr Patch TD Not Given Q3D PIA Sodium Chloride 10 - 40 ml 08/20/24 19:01 08/21/24 09:14 0.9% Saline Lock 10 Ml Syringe IV 10 ml UD PRN Administration SALINE FLUSH Spironolactone 25 mg 08/21/24 10:00 08/21/24 11:17 Spironolactone 25 Mg Tablet PO Not Given DAILY [facility] Protocol Sucralfate 1 gm 08/21/24 08:00 08/21/24 09:13 Sucralfate 1 Gm Tablet [facility] Zolpidem Tartrate 10 mg 08/20/24 22:00 08/20/24 21:53 Zolpidem Tartrate 5 Mg Tablet PO 10 mg QHS [facility] Administration [facility] Medical History Hypertension Severe pulmonary hypertension History of hypertrophic cardiomyopathy Acute systolic congestive heart failure, NYHA class 3 Leukocytosis Cancer History of steroid therapy Easy bruising Migraine headache History of hiatal hernia History of ulceration History of IBS Abdominal bloating Stomach pain Nausea & vomiting Shortness of breath on exertion Smoker History of echocardiogram Chest pain Pulmonary embolism Endometrial cancer Cervical cancer emt intermediate current use of 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 Ovarian cancer GERD (gastroesophageal reflux disease) Insomnia Anxiety Collapsed lung History of blood clots Asthma Breast cancer Pacemaker ICD (implantable cardioverter-defibrillator) in place Hypertrophic cardiomyopathy Home Medications ?Medication ?Instructions ?Recorded ?Last Taken ?Type alprazolam 0.5 mg tablet 0.5 mg PO BID 11/13/2108/20 History zolpidem 10 mg tablet 10 mg PO QHS 11/13/21 History sucralfate 1 gram tablet (Carafate) 1 g PO BIDCM 07/1008/20/24 History metoprolol succinate 25 mg 25 mg PO QDAY 08/08/2412/06 History tablet,extended release 24 hr meloxicam 15 mg tablet 15 mg PO QDAY #30 tabs 08/1008/20/24 Rx pantoprazole 40 mg tablet,delayed 40 mg PO BID 5 08/20/24 History release scopolamine base 1 mg over 3 days 1 patch topical Q3D 08/20/24 08/19/24 History transdermal patch spironolactone 25 mg tablet 25 mg PO DAILY 08/20/24 History Allergy/AdvReac Type Severity Reaction Status Date / Time morphine Allergy Mild Hives Verified 08/20/24 14:17 codeine Allergy Hives Verified 08/20/24 14:17 erythromycin base Allergy PT UNSURE Verified 08/20/24 14:17 OF REACTION Fish Containing Products Allergy Other Verified 08/20/24 14:17 levofloxacin Allergy PT UNSURE Verified 08/20/24 14:17 OF REACTION shellfish derived Allergy Other Verified 08/20/24 14:17 tramadol Allergy Hives Verified 08/20/24 14:17 trimethobenzamide (From Allergy Other Verified 08/20/24 14:17 Tigan) gabapentin (From Neurontin) AdvReac Severe Anaphylaxis Verified 08/20/24 14:17 acetaminophen (From Vicodin) AdvReac Other Verified 08/20/24 14:17 hydrocodone (From Vicodin) AdvReac Other Verified 08/20/24 14:17 metoclopramide (From Reglan) AdvReac Other Verified 08/20/24 14:17 Family History Father Heart disease Idiopathic hypertrophic subaortic stenosis, hypertrophic obstructive cardiomyopathy, congestive heart failure Mother Breast cancer DVT (deep venous thrombosis) Sister Hypertrophic obstructive cardiomyopathy heart transplant at age 34 Cancer Brain, breast, and colon Grandfather Heart disease at age 45 Grandmother CVA (cerebral vascular accident) age 43 Surgical History Presence of implantable cardioverter-defibrillator (ICD) History of cardiac catheterization History of oophorectomy History of cervical polypectomy History of colonoscopy History of tubal ligation History of mastectomy History of cholecystectomy Hx of appendectomy Social History household members: spouse and family housing: house current occupational status: employed Smoking Status: Current every day smoker tobacco type: cigarettes how long ago did patient quit smokin months ago alcohol intake: former substance use type: does not use caffeine: Yes Review of Systems (Anesthesia) ROS Narrative System reviewed and no additional complaints, except as documented.
--- NOTE | 2024-08-21 17:18 | PN_ITS ---
Subjective Subjective Patient seen and examined. She still complains of right upper quadrant pain. She denies any vomiting but still admits to severe nausea. She denies any lightheadedness or dizziness or diarrhea. Review of systems otherwise negative. Gastroenterology on board. Liver enzymes continue to trend upwards. Objective Data Objective Data Vital Signs: Vital Signs Temp Pulse Resp BP Pulse Ox O2 Del Method 96.9 F L 61 16 128/67 H 99 Room Air 08/21/24 16:55 08/21/24 16:55 08/21/24 16:55 08/21/24 16:55 08/21/24 16:55 08/21/24 16:39 Oxygen Delivery Method Room Air Weight: 126 lb 8.725 oz Body Mass Index (BMI) 21.7 Intake & Output: Intake and Output for Last 24 Hours 08/19/24 08/20/24 08/21/24 23:59 23:59 23:59 Intake Total 550 / 550 Balance 550 / 550 Lab / Micro Data 08/21/24 05:42 08/21/24 05:42 Labs: Laboratory Results - last 24 hr 08/21/24 05:42: WBC 10.5, RBC 4.04 L, Hgb 12.6, Hct 39.1, MCV 96.8, MCH 31.2, MCHC 32.2, RDW Std Deviation 48.3 H, RDW Coeff of Damon 13.7, Plt Count 402, MPV 10.4, Sodium 135, Potassium 4.5, Chloride 100, Carbon Dioxide 22.0, Anion Gap 13, BUN 14, Creatinine 1.00, Estim Creat Clear Calc 61.99, Est GFR (MDRD) Non-Af 71, BUN/Creatinine Ratio 13.5, Glucose 83, Calcium 9.5, Total Bilirubin 0.82, A ST 535 H, ALT 383 H, Alkaline Phosphatase 197 H, Total Protein 7.1, Albumin 4.2, Globulin 2.9, Albumin/Globulin Ratio 1.4 Physical Exam Const alert and oriented x3 Constitutional Narrative: frail, looks uncomfortable due to abdominal pain HEENT head/scalp atraumatic, moist oral mucous membranes and oropharynx normal Eyes EOMs intact bilaterally Neck supple and no JVD Lymph Lymphatic: no lymphedema noted Resp normal respiratory effort, normal air movement and clear to auscultation bilaterally Cardio regular rate, regular rhythm, S1 normal heart sound, S2 normal heart sound and no murmurs GI GI Narrative: Moderate right upper quadrant tenderness with no guarding and no rebound tenderness. No palpable hepatomegaly Extremity normal capillary refill, no clubbing, cyanosis or edema and no calf tenderness General Extremity: no tenderness to palpation of joints or extremities Skin General Skin Exam: no breakdown Neuro CN's II-XII intact bilaterally Motor Exam: general weakness Psych thought process normal and cooperative Appearance: appropriate Assessment & Plan Assessment/Plan (1) Elevated liver enzymes: (2) Dilated pancreatic duct: PLAN: Plan #Acute hepatitis * Etiology is not clear. She was admitted with right upper quadrant abdominal pain. Liver enzymes are elevated and have continued trending upwards especially the AST. * CT of the abdomen and pelvis showed hepatomegaly with double duct sign. Liver ultrasound showed hepatomegaly with pancreatic duct dilatation. * Patient currently n.p.o. and being hydrated with IV fluids. IV morphine as needed. IV Zofran for nausea. She also has a scopolamine patch. * GI on board. For MRCP today and then ERCP #Chronic heart failure with reduced ejection fraction in setting of familial hypertrophic cardiomyopathy * Has ICD in place. Follows with [facility] cardiology. * 2D echo showed EF of 35% with mild concentric left ventricular hypertrophy and global ventricular hypokinesis with stage II diastolic dysfunction. * Chest x-ray showed no evidence of volume overload. On spironolactone and metoprolol #Anxiety and insomnia: On alprazolam and zolpidem GERD: PPI DVT prophylaxis: Lovenox Charges/Coding Visit Charges Inpatient E&M: 58635 [facility] Hosp L3
--- NOTE | 2024-08-21 17:24 | PCM.PN.BLA ---
Progress Note Patient still complains of the lower abdominal pain. She denies any chest pain or shortness of breath. She was unable to get MRI without turning off her pacemaker. After weighing risk and benefits due to her low ejection fraction of 10 to 20% it was decided to go forth with ERCP and possibly get MRCP if absolutely needed. Physical Exam Const alert, oriented x3, no apparent distress and average body habitus General Appearance: cooperative HEENT normocephalic, head/scalp atraumatic, hearing grossly normal bilaterally, nasal mucous membranes and turbinates normal and moist oral mucous membranes Eyes PERRL, EOMs intact bilaterally and conjunctivae normal Neck full ROM Chest inspection of chest normal Resp normal respiratory effort, normal air movement, no use of accessory muscles and clear to auscultation bilaterally Cardio regular rate, regular rhythm, no murmurs and peripheral pulses 2+ throughout GI GI Narrative: Abdomen soft and nondistended. Only diffuse tenderness to palpation noted on exam. No rebound tenderness or guarding noted. Back/Spine normal ROM Extremity normal to inspection, full ROM and no pedal edema Skin no rashes or lesions noted Psych mental status grossly normal Assessment & Plan Assessment/Plan (1) Elevated liver enzymes: (2) Dilated pancreatic duct: PLAN: 43-year-old with multiple comorbidities including hypertrophic cardiomyopathy, CHF with ejection fraction of 10 to 20% status post AICD, history of breast cancer, history ovarian cancer currently in remission and both nodes cancer comes in for worsening of right upper quadrant pain and discovered to have cholestatic hepatitis with dilated common bile duct and pancreatic duct. Patient will undergo therapeutic and diagnostic ERCP. She was explained alternatives, risk and benefits include understanding bleeding, infection, sepsis, perforation, need for brain surgery . She will have an ASA of 3. Visit Charges Inpatient E&M: 00301 Subs Hosp L3
--- NOTE | 2024-08-21 18:30 | RAD_ITS ---
PROCEDURE: ERCP BILIARY/PANCREAS 08/21/2024 REASON FOR EXAM: ERCP TECHNIQUE: Fluoroscopic images for ERCP were performed. COMPARISON: 08/11/2024 CT. FINDINGS: Contrast fills the biliary system. 138.7 seconds of fluoroscopic time. 28.89 mGy. See procedure report for full details. RAD/ERCP Biliary/Pancreas IMPRESSION: As above. Reading Location: [id number]
--- NOTE | 2024-08-21 19:26 | OP.ERCP_ITS ---
Patient Name: Michelle Mitchell Procedure Date: 08/21/2024 5:37 PM Date of : 1980 Age: 43 Procedure: ERCP Indications: Bile duct stone(s), Elevated liver enzymes Providers: Quang Myles DO Medicines: General Anesthesia Patient Profile: This is a 43 year old female. Refer to note in patient chart for documentation of history and physical. Patient has symptoms of acute abdominal cramping, acute right upper quadrant abdominal pain, acute dyspepsia, acute nausea and acute vomiting. This patient has no history of previous ERCP. She is status post laparoscopic cholecystectomy. Previously obtained abdominal ultrasound. An ultrasound of the gallbladder showed the common bile duct to be dilated. Previously obtained CT showed a dilation in the biliary tree and a dilation in the pancreas. Complications: No immediate complications. Procedure: Pre-Anesthesia Assessment: - Prior to the procedure, a History and Physical was performed, and patient medications and allergies were reviewed. The patient is competent. The risks and benefits of the procedure and the sedation options and risks were discussed with the patient. All questions were answered and informed consent was obtained. Patient identification and proposed procedure were verified by the physician in the pre-procedure area. Mental Status Examination: normal. Airway Examination: normal oropharyngeal airway and neck mobility. Respiratory Examination: clear to auscultation. CV Examination: normal. Prophylactic Antibiotics: The patient does not require prophylactic antibiotics. Prior Anticoagulants: The patient has taken no 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 or antiplatelet agents. ASA Grade Assessment: II - A patient with mild systemic disease. After reviewing the risks and benefits, the patient was deemed in satisfactory condition to undergo the procedure. The anesthesia plan was to use monitored anesthesia care (MAC). Immediately prior to administration of medications, the patient was re-assessed for adequacy to receive sedatives. The heart rate, respiratory rate, oxygen saturations, blood pressure, adequacy of pulmonary ventilation, and response to care were monitored throughout the procedure. The physical status of the patient was re-assessed after the procedure. After obtaining informed consent, the scope was passed under direct vision. Throughout the procedure, the patient's blood pressure, pulse, and oxygen saturations were monitored continuously. The Duodenoscope was introduced through the mouth, and advanced to the duodenum and used to inject contrast into the bile duct and ventral pancreatic duct. The ERCP was accomplished without difficulty. The patient tolerated the procedure well. Scope In: 6:34:23 PM Scope Out: 7:12:13 PM Total Procedure Duration Time 0 hours 37 minutes 50 seconds Findings: The ase certified technician film was normal. The esophagus was successfully intubated under direct vision. The scope was advanced to a normal major papilla in the descending duodenum without detailed examination of the pharynx, larynx and associated structures, and upper GI tract. The upper GI tract was grossly normal. The bile duct was deeply cannulated with the short-nosed traction sphincterotome. Contrast was injected. I personally interpreted the bile duct images. Ductal flow of contrast was adequate. Image quality was adequate. Contrast extended to the entire biliary tree. The biliary orifice was stenotic. This appeared indeterminate (neither benign nor malignant). The lower third of the main bile duct contained a single localized stenosis 6 mm in length. A cholecystectomy had been performed. A long 0.025 inch Jagwire was passed into the biliary tree. A 5 mm biliary sphincterotomy was made with a traction (standard) sphincterotome using ERBE electrocautery. There was no post-sphincterotomy bleeding. The biliary tree was swept with a 12 mm balloon starting at the upper third of the main bile duct, middle third of the main bile duct, lower third of the main duct, bifurcation and left main hepatic duct. Sludge was swept from the duct. All stones were removed. Cells for cytology were obtained by brushing in the lower third of the main bile duct. One 10 Fr by 7 cm temporary stent was placed 5 cm into the common bile duct. Bile flowed through the stent. The stent was in good position. The ventral pancreatic duct was deeply cannulated. Contrast was injected. Opacification of the ventral pancreatic duct in the head of the pancreas was successful. The maximum diameter of the ducts was 6 mm. The ventral pancreatic duct in the head of the pancreas was normal. The ventral pancreatic duct in the head of the pancreas and pancreatic duct in the genu of the pancreas contained a mild stenosis. The ventral pancreatic duct in the head of the pancreas contained a single stone. The pancreatic duct in the genu of the pancreas was partially obstructed. The pancreatic duct in the genu of the pancreas was dilated mildly. A long 0.025 inch Jagwire was passed into the ventral pancreatic duct. A 5 mm ventral pancreatic sphincterotomy was made with a traction (standard) sphincterotome using ERBE electrocautery. There was no post-sphincterotomy bleeding. To discover objects, the biliary tree was swept with a 6 mm balloon starting at the main pancreatic duct. One stone was removed. All stones remained. One 7 Fr by 5 cm temporary stent was placed 5 cm into the ventral pancreatic duct. Clear fluid flowed through the stent. The stent was in good position. Cells for cytology were obtained by brushing in the ventral pancreatic duct in the head of the pancreas. Impression: - Biliary papillary stenosis, indeterminate. - A single localized biliary stricture was found in the lower third of the main bile duct. - The patient has had a cholecystectomy. - Mild dilatation of the the pancreatic duct in the genu of the pancreas was found. 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 - A pancreatic obstruction was found in the genu of the pancreas. - Choledocholithiasis was found. Complete removal was accomplished by biliary sphincterotomy and balloon extraction. - A single pancreatic stone was found. - A biliary sphincterotomy was performed. - The biliary tree was swept. - Cells for cytology obtained in the lower third of the main duct. - One temporary stent was placed into the common bile duct. - A pancreatic sphincterotomy was performed. - The biliary tree was swept. - One temporary stent was placed into the ventral pancreatic duct. - Cells for cytology obtained in the ventral pancreatic duct in the head of the pancreas. - No specimens collected. Procedure Code(s): --- Professional --- 51018, Endoscopic retrograde cholangiopancreatography (ERCP); with placement of endoscopic stent into biliary or pancreatic duct, including pre- and post-dilation and guide wire passage, when performed, including sphincterotomy, when performed, each stent 03000, 59, Endoscopic retrograde cholangiopancreatography (ERCP); with placement of endoscopic stent into biliary or pancreatic duct, including pre- and post-dilation and guide wire passage, when performed, including sphincterotomy, when performed, each stent [id number], Endoscopic retrograde cholangiopancreatography (ERCP); with removal of calculi/debris from biliary/pancreatic duct(s) 68200, 26, Endoscopic catheterization of the biliary ductal system, radiological supervision and interpretation CPT copyright 2021 [employer]. All rights reserved. The codes documented in this report are preliminary and upon biological photographer review may be revised to meet current compliance requirements. Quang Myles DO 08/21/2024 7:26:23 PM This report has been signed electronically. Number of Addenda: 0 Note Initiated On: 08/21/2024 5:37 PM
--- NOTE | 2024-08-21 19:27 | PCM.POST.ANE ---
Anesthesia: Postop Eval I Current Vital Signs Temperature: 99.6 F Pulse Rate: 86 Blood Pressure: 145/85 Respiratory Rate: 18 Pulse Ox: 95 Oxygen Delivery Method: Room Air Assessment Airway patent: Yes Spontaneous unlabored respirations: Yes Mental status: Awake nausea: No Vomiting: No Anesthesia Complication: No Fluid Hydration Crystalloid volume administer (ml): 200 Total IV fluid infused: 200 Progress Note Anesthesia document: Postop Eval 1 completed: Yes
[2024-08-21] MEDS: Ondansetron 4 MG/2 ML Vial IV (21:38)
[2024-08-21] MEDS: ALPRAZolam 0.5 MG Tablet PO (21:51)
[2024-08-21] MEDS: Zolpidem Tartrate 5 MG Tablet 10 MG PO (21:51)
[2024-08-21] MEDS: Pantoprazole Sodium 40 MG Tablet PO (21:51)
[2024-08-22] VITALS (7 sets, daily range): BP systolic 97–126; BP diastolic 62–69; PULSE 59–80; RESP 15–18; TEMP 35.5–36.6; O2SAT 95–100
[2024-08-22] MEDS: HYDROmorphone 0.5 MG/0.5 ML SYRINGE IV ×5 (01:41→21:11)
[2024-08-22] MEDS: oxyCODONE 5 MG Tablet PO ×2 (04:41→10:33)
[2024-08-22 06:38] LABS: Absolute Lymphocyte Count 1.39 X10^3/uL (0.83-4.51); Absolute Neutrophil Count 8.6 X10^3/uL (2.0-7.7); Basophil# 0.06 X10^3/uL; Basophil% 0.5 % (0-1); Eosinophil# 0.09 X10^3/uL; Eosinophils% 0.8 % (0-5); Hematocrit 39.3 % (37-47); Hemoglobin 12.9 g/dL (12.0-15.0); Lymphocyte # 1.39 X10^3/ul (0.83-4.51); Lymphocyte % 12.5 % (19-41); Mean Corp Hgb Conc 32.8 g/dL (32-36); Mean Corpuscular Hgb 31.3 pg (27.0-32.0); Mean Corpuscular Volume 95.4 fL (81-99); Monocyte# 0.89 X10^3/uL; NRBC Flagged by Analyzer 0 % (0-5); Neutrophil % 77.7 % (47-70); Platelet Count 291 K/mm3 (150-450); RBC Distribution Width CV 13.8 % (11.6-14.6); RBC Distribution Width SD 48.1 fl (35.1-43.9); Red Blood Count 4.12 M/mm3 (4.2-5.4); White Blood Count 11.1 K/mm3 (4.4-11.0)
--- NOTE | 2024-08-22 06:53 | PCM.POSTANE2 ---
Anesthesia Postop Eval I Sum Postop Eval Completion status Anesthesia document: Postop Eval 1 completed: Yes Anesthesia Postop Eval I Summary Anesthesia Postop Eval I Summary: Anesthesia Postop Eval I: Assessment Summary Airway patent Yes 08/21/24 19:28 Spontaneous unlabored Yes 08/21/24 19:28 respirations Mental status Awake 08/21/24 19:28 nausea No 08/21/24 19:28 Vomiting No 08/21/24 19:28 Anesthesia Postop Eval I: Fluid Summary Crystalloid volume administer 200 08/21/24 19:28 (ml) Colloids volume administered ( ml) Blood Product volume administered (ml) Total IV fluid infused 200 08/21/24 19:28 Anesthesia Postop Eval I: Summary Notes Anesthesia Complication No 08/21/24 19:28 Anesthesia Complication Comment: Post-operative progress note Anesthesia: Postop Eval II Evaluation Mental status: Awake Pain Level: 0 nausea: No Vomiting: No
[2024-08-22 07:03] LABS: ALB/GLOB Ratio 1.4 RATIO (0.9-2.4); AST(SGOT) 284 U/L (<=31); Alanine Aminotransfer ALT/SGPT 368 U/L (<=34); Alkaline Phosphatase 199 U/L (35-104); Anion Gap 12 (5-15); BUN 12 mg/dL (4-19); Calcium,Total 9.5 mg/dL (7.6-11.0); Carbon Dioxide 22.1 mmol/L (21.0-32.0); Chloride 101 mmol/L (98-108); Creatinine, Serum 0.98 mg/dL (0.70-1.20); EST Glomerular Filtration Rate 73 (>60); Estimated Creatinine Clearance 63.26 ml/min (50-250); Globulin 2.8 g/dL (2.2-4.2); Glucose 96 mg/dL (70-99); Potassium 4.1 mmol/L (3.3-5.1); Protein, Total 6.9 g/dL (5.9-8.4); Sodium Level 135 mmol/L (133-145); Total Bilirubin 0.89 mg/dL (0.00-1.30)
[2024-08-22] MEDS: Sucralfate 1 GM Tablet PO ×2 (08:18→17:20)
[2024-08-22] MEDS: Metoprolol(XL)Succ 25 MG Tablet PO (10:33)
[2024-08-22] MEDS: Spironolactone 25 MG Tablet PO (10:33)
[2024-08-22] MEDS: Meloxicam 15 MG Tablet PO (10:33)
[2024-08-22] MEDS: Pantoprazole Sodium 40 MG Tablet PO ×2 (10:33→21:19)
[2024-08-22] MEDS: ALPRAZolam 0.5 MG Tablet PO ×2 (10:38→21:13)
--- NOTE | 2024-08-22 12:11 | PN_ITS ---
Subjective Subjective Patient seen and examined. She still complaining of RUQ pain. She admits to nausea,but denied any vomiting. Review of systems is otherwise negative. She had ERCP yesterday which showed choledocholithiasis; she had biliary stents inserted. Liver enzymes have started trending downwards. Objective Data Objective Data Vital Signs: Vital Signs Temp Pulse Resp BP Pulse Ox O2 Del Method 97.1 F L 77 18 122/64 H 99 Room Air 08/22/24 06:00 08/22/24 10:33 08/22/24 06:00 08/22/24 06:00 08/22/24 06:00 08/22/24 02:30 Oxygen Delivery Method Room Air Weight: 126 lb 8.725 oz Body Mass Index (BMI) 21.7 Intake & Output: Intake and Output for Last 24 Hours 08/20/24 08/21/24 08/22/24 23:59 23:59 23:59 Intake Total 550 / 950 650 / 650 Balance 550 / 950 650 / 650 Lab / Micro Data 08/22/24 06:21 08/22/24 06:21 Labs: Laboratory Results - last 24 hr 08/22/24 06:21: WBC 11.1 H, RBC 4.12 L, Hgb 12.9, Hct 39.3, MCV 95.4, MCH 31.3, MCHC 32.8, RDW Std Deviation 48.1 H, RDW Coeff of Damon 13.8, Plt Count 291, MPV 10.0, Immature Gran % (Auto) 0.500, Neut % (Auto) 77.7 H, Lymph % (Auto) 12.5 L, Boundary % (Auto) 8.0, Eos % (Auto) 0.8, Baso % (Auto) 0.5, Absolute Neuts (auto) 8.6 H, Absolute Lymphs (auto) 1.39, Nucleated RBC % 0, Sodium 135, Potassium 4.1, Chloride 101, Carbon Dioxide 22.1, Anion Gap 12, BUN 12, Creatinine 0.98, Estim Creat Clear Calc 63.26, Est GFR (MDRD) Non-Af 73, BUN/Creatinine Ratio 12.0, Glucose 96, Calcium 9.5, Total Bilirubin 0.89, AST 284 H, ALT 368 H, A lkaline Phosphatase 199 H, Total Protein 6.9, Albumin 4.0, Globulin 2.8, Albumin/Globulin Ratio 1.4 Radiography Diagnostic Testing: Radiology Impression Endo Retro Cholangiopancreatogram 08/21/24 18:30 IMPRESSION: As above. Reading Location: [id number] Physical Exam Const alert and oriented x3 Constitutional Narrative: frail, looks uncomfortable due to abdominal pain General Appearance: cooperative HEENT normocephalic, head/scalp atraumatic and hearing grossly normal bilaterally Eyes PERRL, EOMs intact bilaterally and conjunctivae normal Neck full ROM, supple and no JVD Lymph Lymphatic: no lymphedema noted Chest inspection of chest normal Resp normal respiratory effort, normal air movement, no use of accessory muscles and clear to auscultation bilaterally Cardio regular rate, regular rhythm, S1 normal heart sound, S2 normal heart sound, no murmurs and peripheral pulses 2+ throughout GI GI Narrative: Moild right upper quadrant tenderness with no guarding and no rebound tenderness. No palpable hepatomegaly Back/Spine normal ROM Extremity normal to inspection, full ROM, normal capillary refill and no clubbing, cyanosis or edema General Extremity: no tenderness to palpation of joints or extremities Skin no rashes or lesions noted General Skin Exam: no breakdown Neuro CN's II-XII intact bilaterally Motor Exam: general weakness Psych mental status grossly normal, thought process normal and cooperative Appearance: appropriate Assessment & Plan Assessment/Plan (1) Elevated liver enzymes: (2) Dilated pancreatic duct: PLAN: Plan #Acute hepatitis * due to acute choledocholithiasis. She was admitted with right upper quadrant abdominal pain. 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 Choledocholithiasis was also found and complete removal was accomplished by biliary sphincterotomy and balloon extraction and a single pancreatic stone was found. Temporary stents placed in the common bile duct and another 1 in the ventral pancreatic duct. * CT of the abdomen and pelvis showed hepatomegaly with double duct sign. Liver ultrasound showed hepatomegaly with pancreatic duct dilatation. * IV morphine as needed. IV Zofran for nausea. She also has a scopolamine patch. Continue gentle hydration with IVF. * GI on board. * #Chronic heart failure with reduced ejection fraction in setting of familial hypertrophic cardiomyopathy * Has ICD in place. Follows with [facility] cardiology. * 2D echo showed EF of 35% with mild concentric left ventricular hypertrophy and global ventricular hypokinesis with stage II diastolic dysfunction. * Chest x-ray showed no evidence of volume overload. On spironolactone and metoprolol #Anxiety and insomnia: On alprazolam and zolpidem GERD: PPI DVT prophylaxis: Lovenox Charges/Coding Visit Charges Inpatient E&M: 47050 Subs Hosp L2
[2024-08-22] MEDS: Zolpidem Tartrate 5 MG Tablet 10 MG PO (21:13)
[2024-08-23] MEDS: 0.9% Saline Lock 10 ML Syringe IV ×2 (01:40→10:41)
[2024-08-23] MEDS: HYDROmorphone 0.5 MG/0.5 ML SYRINGE IV ×3 (01:40→10:41)
[2024-08-23 05:30] VITALS: BP 122/88; PULSE 84; RESP 18; TEMP 36.3; O2SAT 99
[2024-08-23 06:17] LABS: Absolute Lymphocyte Count 1.35 X10^3/uL (0.83-4.51); Absolute Neutrophil Count 10.2 X10^3/uL (2.0-7.7); Basophil# 0.04 X10^3/uL; Basophil% 0.3 % (0-1); Eosinophil# 0.13 X10^3/uL; Hematocrit 38.3 % (37-47); Hemoglobin 12.7 g/dL (12.0-15.0); Lymphocyte # 1.35 X10^3/ul (0.83-4.51); Lymphocyte % 10.7 % (19-41); Mean Corp Hgb Conc 33.2 g/dL (32-36); Mean Corpuscular Hgb 31.5 pg (27.0-32.0); Mean Platelet Vol. 10.4 fl (6.2-12.0); Monocyte# 0.89 X10^3/uL; NRBC Flagged by Analyzer 0 % (0-5); Neutrophil # 10.19 X10^3/uL (2.7-7.7); Neutrophil % 80.5 % (47-70); Platelet Count 274 K/mm3 (150-450); RBC Distribution Width CV 13.5 % (11.6-14.6); RBC Distribution Width SD 46.5 fl (35.1-43.9); Red Blood Count 4.03 M/mm3 (4.2-5.4); White Blood Count 12.7 K/mm3 (4.4-11.0)
[2024-08-23 06:49] LABS: ALB/GLOB Ratio 1.3 RATIO (0.9-2.4); AST(SGOT) 115 U/L (<=31); Alanine Aminotransfer ALT/SGPT 277 U/L (<=34); Alkaline Phosphatase 188 U/L (35-104); Anion Gap 12 (5-15); BUN 7 mg/dL (4-19); Calcium,Total 9.1 mg/dL (7.6-11.0); Carbon Dioxide 23.1 mmol/L (21.0-32.0); Chloride 100 mmol/L (98-108); Creatinine, Serum 0.75 mg/dL (0.70-1.20); EST Glomerular Filtration Rate 100 (>60); Estimated Creatinine Clearance 82.66 ml/min (50-250); Glucose 104 mg/dL (70-99); Potassium 4.2 mmol/L (3.3-5.1); Sodium Level 135 mmol/L (133-145); Total Bilirubin 0.59 mg/dL (0.00-1.30)
[2024-08-23 08:37] VITALS: BP 105/72; PULSE 65; RESP 16; TEMP 36.4; O2SAT 94
[2024-08-23 08:44] VITALS: PULSE 65
[2024-08-23] MEDS: Pantoprazole Sodium 40 MG Tablet PO ×2 (08:44→22:48)
[2024-08-23] MEDS: Sucralfate 1 GM Tablet PO ×2 (08:44→16:44)
[2024-08-23] MEDS: Spironolactone 25 MG Tablet PO (08:44)
[2024-08-23] MEDS: Meloxicam 15 MG Tablet PO (08:44)
[2024-08-23] MEDS: Metoprolol(XL)Succ 25 MG Tablet PO (08:44)
[2024-08-23] MEDS: ALPRAZolam 0.5 MG Tablet PO ×2 (08:59→23:51)
[2024-08-23] MEDS: Lidocaine 5% Patch 1 PATCH TOPICAL (10:41)
[2024-08-23] MEDS: oxyCODONE 5 MG Tablet PO ×3 (13:55→23:51)
[2024-08-23 14:21] VITALS: BP 100/54; PULSE 95; RESP 18; TEMP 36.1; O2SAT 94
--- NOTE | 2024-08-23 17:25 | CT_ITS ---
PROCEDURE: ABDOMEN/PELVIS WITHOUT CONT 08/23/2024 REASON FOR EXAM: ABDOMINAL PAIN, POSSIBLE KIDNEY STONES TECHNIQUE: Abdomen and pelvis CT without intravenous contrast. Noncontrast technique limits evaluation of the abdominal and pelvic viscera. Coronal and Sagittal reconstruction series were provided. One or more dose reduction techniques were used (e.g., Automated exposure control, adjustment of the mA and/or kV according to patient size, use of iterative reconstruction technique). PATIENT PREPARATION: Per protocol ORAL CONTRAST TYPE: None. COMPARISON: CT abdomen pelvis 08/11/2024. FINDINGS: Visualization is limited without the use of IV contrast. Lung bases: Interlobular septal thickening, moderate cardiomegaly with partially visualized cardiac pacer wires. Liver: Hepatomegaly with diffuse hepatic steatosis. No biliary ductal dilation. Left hepatic lobe pneumobilia, compatible with recent pancreatic stent placement. Gallbladder: Prior cholecystectomy. Spleen: Unremarkable. Pancreas: The unopacified pancreas is unremarkable. Interval pancreatic and biliary stent placement. Adrenals: No obvious adrenal mass. Kidneys: No hydronephrosis or nephrolithiasis. Bladder: Mildly distended and unremarkable. Reproductive Organs: Grossly unremarkable. Bowel: Oral contrast material opacifies the distal large bowel. The bowel loops are nondilated. No ascites or pneumoperitoneum. Prior appendectomy. Lymph nodes: Visualization is limited without the use of IV contrast. Vasculature: Mild calcific plaque of the aortoiliac vessels. Bones: Unremarkable. CT/Abdomen/Pelvis without Cont IMPRESSION: 1. No acute abdominopelvic finding. 2. Stable moderate cardiomegaly. 3. Hepatomegaly with diffuse hepatic steatosis. Reading Location: [id number]
--- NOTE | 2024-08-23 17:25 | PN_ITS ---
Subjective Subjective Patient seen and examined. He was still complaining of abdominal pain. She said she also had pain over her right upper back. Patient says nothing works for her pain apart from Dilaudid. I saw the patient with her nurse by her bedside. Review of systems otherwise negative. Objective Data Objective Data Vital Signs: Vital Signs Temp Pulse Resp BP Pulse Ox O2 Del Method O2 Flow Rate 97 F L 95 18 100/54 L 94 Room Air 97 08/23/24 14:21 08/23/24 14:21 08/23/24 14:21 08/23/24 14:21 08/23/24 14:21 08/23/24 14:21 08/22/24 08:40 Oxygen Flow Rate (L/min) 97 Oxygen Delivery Method Room Air Weight: 126 lb 8.725 oz Body Mass Index (BMI) 21.7 Intake & Output: Intake and Output for Last 24 Hours 08/21/24 08/22/24 08/23/24 23:59 23:59 23:59 Intake Total 550 / 950 2050 / 2300 1222.75 / 1222.75 Balance 550 / 950 2050 / 2300 1222.75 / 1222.75 Lab / Micro Data 08/23/24 05:40 08/23/24 05:40 Labs: Laboratory Results - last 24 hr 08/23/24 05:40: WBC 12.7 H, RBC 4.03 L, Hgb 12.7, Hct 38.3, MCV 95.0, MCH 31.5, MCHC 33.2, RDW Std Deviation 46.5 H, RDW Coeff of Damon 13.5, Plt Count 274, MPV 10.4, Immature Gran % (Auto) 0.500, Neut % (Auto) 80.5 H, Lymph % (Auto) 10.7 L, Ada % (Auto) 7.0, Eos % (Auto) 1.0, Baso % (Auto) 0.3, Absolute Neuts (auto) 10.2 H, Absolute Lymphs (auto) 1.35, Nucleated RBC % 0, Sodium 135, Potassium 4.2, Chloride 100, Carbon Dioxide 23.1, Anion Gap 12, BUN 7, Creatinine 0.75, Estim Creat Clear Calc 82.66, Est GFR (MDRD) Non-Af 100, BUN/Creatinine Ratio 9.0 L, Glucose 104 H, Calcium 9.1, Total Bilirubin 0.59, AST 115 H, ALT 277 H, A lkaline Phosphatase 188 H, Total Protein 7.0, Albumin 4.0, Globulin 3.0, Albumin/Globulin Ratio 1.3 Physical Exam Const alert and oriented x3 Constitutional Narrative: frail, looks uncomfortable due to abdominal pain. In moderate distress General Appearance: cooperative HEENT normocephalic, head/scalp atraumatic and hearing grossly normal bilaterally Eyes EOMs intact bilaterally and conjunctivae normal Neck full ROM, supple and no JVD Lymph Lymphatic: no lymphedema noted Chest inspection of chest normal Resp normal respiratory effort, normal air movement, no use of accessory muscles and clear to auscultation bilaterally Cardio regular rate, regular rhythm, S1 normal heart sound, S2 normal heart sound, no murmurs and peripheral pulses 2+ throughout GI GI Narrative: minimal RUQ tenderness, however she does have some CVA tenderness. No palpable organomegaly Back/Spine normal ROM Extremity normal to inspection, full ROM, normal capillary refill and no clubbing, cyanosis or edema General Extremity: no tenderness to palpation of joints or extremities Skin no rashes or lesions noted General Skin Exam: no breakdown Neuro CN's II-XII intact bilaterally Motor Exam: general weakness Psych mental status grossly normal, thought process normal and cooperative Appearance: appropriate Assessment & Plan Assessment/Plan (1) Elevated liver enzymes: (2) Dilated pancreatic duct: PLAN: Plan #Acute choledocholithiasis * She was admitted with right upper quadrant abdominal pain. 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 Choledocholithiasis was also found and complete removal was accomplished by biliary sphincterotomy and balloon extraction and a single pancreatic stone was found. Temporary stents placed in the common bile duct and another 1 in the ventral pancreatic duct. * CT of the abdomen and pelvis showed hepatomegaly with double duct sign. Liver ultrasound showed hepatomegaly with pancreatic duct dilatation. * IV Zofran for nausea. She also has a scopolamine patch. Continue gentle hydration with IVF. * GI on board. * she still complains of abdominal pain and right CVA pain. Will get CT without contrast to evaluate for kidney stones. * IV morphine dc'd and patient now on IV dilaudid. * #Chronic heart failure with reduced ejection fraction in setting of familial hypertrophic cardiomyopathy * Has ICD in place. Follows with [facility] cardiology. * 2D echo showed EF of 35% with mild concentric left ventricular hypertrophy and global ventricular hypokinesis with stage II diastolic dysfunction. * Chest x-ray showed no evidence of volume overload. On spironolactone and metoprolol #Anxiety and insomnia: On alprazolam and zolpidem GERD: PPI DVT prophylaxis: Lovenox Charges/Coding Visit Charges Inpatient E&M: 75308 Subs Hosp L2
--- NOTE | 2024-08-23 20:04 | PCM.PN.BLA ---
Progress Note Patient saying that she is still in a lot of abdominal pain. She had a repeat echocardiogram and it showed her EF was 30 to 35%. She underwent ERCP with removal of choledocholithiasis and brushings of the distal common bile duct and proximal pancreatic duct. She had 2 stents placed in her bile duct and pancreatic duct. LFTs are improving. Physical Exam Const alert and oriented x3 Constitutional Narrative: looks uncomfortable General Appearance: cooperative HEENT normocephalic, head/scalp atraumatic and hearing grossly normal bilaterally Eyes PERRL, EOMs intact bilaterally and conjunctivae normal Neck full ROM, supple and no JVD Lymph Lymphatic: no lymphedema noted Chest inspection of chest normal Resp normal respiratory effort, normal air movement, no use of accessory muscles and clear to auscultation bilaterally Cardio regular rate, regular rhythm, S1 normal heart sound, S2 normal heart sound, no murmurs and peripheral pulses 2+ throughout GI GI Narrative: Moild right upper quadrant tenderness with no guarding and no rebound tenderness. No palpable hepatomegaly Back/Spine normal ROM Extremity normal to inspection, full ROM, normal capillary refill and no clubbing, cyanosis or edema General Extremity: no tenderness to palpation of joints or extremities Skin no rashes or lesions noted General Skin Exam: no breakdown Neuro CN's II-XII intact bilaterally Motor Exam: general weakness Psych mental status grossly normal, thought process normal and cooperative Appearance: appropriate Assessment & Plan Assessment/Plan (1) Abdominal pain: QUALIFIERS: Abdominal location: unspecified location Qualified Code(s): R10.9 - Unspecified abdominal pain (2) Elevated liver enzymes: (3) Dilated pancreatic duct: PLAN: Plan Patient is a 43-year-old female who presented to [facility] ED on 08/20/2024 with worsening RUQ abdominal pain. Worsening RUQ abdominal pain with elevated LFTs ? Admit under inpatient status to PCU. GI consulted. Presented with worsening abdominal pain and uptrending LFTs. Prior CT abdomen pelvis showed hepatomegaly with double duct sign. Liver ultrasound on this admission again showed hepatomegaly with pancreatic duct dilation. 08/23/2024-Findings: The extruding press adjuster film was normal. The esophagus was successfully intubated under direct vision. The scope was advanced to a normal major papilla in the descending duodenum without detailed examination of the pharynx, larynx and associated structures, and upper GI tract. The upper GI tract was grossly normal. The bile duct was deeply cannulated with the short-nosed traction sphincterotome. Contrast was injected. I personally interpreted the bile duct images. Ductal flow of contrast was adequate. Image quality was adequate. Contrast extended to the entire biliary tree. The biliary orifice was stenotic. This appeared indeterminate (neither benign nor malignant). The lower third of the main bile duct contained a single localized stenosis 6 mm in length. A cholecystectomy had been performed. A long 0.025 inch Jagwire was passed into the biliary tree. A 5 mm biliary sphincterotomy was made with a traction (standard) sphincterotome using ERBE electrocautery. There was no post-sphincterotomy bleeding. The biliary tree was swept with a 12 mm balloon starting at the upper third of the main bile duct, middle third of the main bile duct, lower third of the main duct, bifurcation and left main hepatic duct. Sludge was swept from the duct. All stones were removed. Cells for cytology were obtained by brushing in the lower third of the main bile duct. One 10 Fr by 7 cm temporary stent was placed 5 cm into the common bile duct. Bile flowed through the stent. The stent was in good position. The ventral pancreatic duct was deeply cannulated. Contrast was injected. Opacification of the ventral pancreatic duct in the head of the pancreas was successful. The maximum diameter of the ducts was 6 mm. The ventral pancreatic duct in the head of the pancreas was normal. The ventral pancreatic duct in the head of the pancreas and pancreatic duct in the genu of the pancreas contained a mild stenosis. The ventral pancreatic duct in the head of the pancreas contained a single stone. The pancreatic duct in the genu of the pancreas was partially obstructed. The pancreatic duct in the genu of the pancreas was dilated mildly. A long 0.025 inch Jagwire was passed into the ventral pancreatic duct. A 5 mm ventral pancreatic sphincterotomy was made with a traction (standard) sphincterotome using ERBE electrocautery. There was no post-sphincterotomy bleeding. To discover objects, the biliary tree was swept with a 6 mm balloon starting at the main pancreatic duct. One stone was removed. All stones remained. One 7 Fr by 5 cm temporary stent was placed 5 cm into the ventral pancreatic duct. Clear fluid flowed through the stent. The stent was in good position. Cells for cytology were obtained by brushing in the ventral pancreatic duct in the head of the pancreas. Impression: - Biliary papillary stenosis, indeterminate. - A single localized biliary stricture was found in the lower third of the main bile duct. - The patient has had a cholecystectomy. - Mild dilatation of the the pancreatic duct in the genu of the pancreas was found. 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 - A pancreatic obstruction was found in the genu of the pancreas. - Choledocholithiasis was found. Complete removal was accomplished by biliary sphincterotomy and balloon extraction. - A single pancreatic stone was found. - A biliary sphincterotomy was performed. - The biliary tree was swept. - Cells for cytology obtained in the lower third of the main duct. - One temporary stent was placed into the common bile duct. - A pancreatic sphincterotomy was performed. - The biliary tree was swept. - One temporary stent was placed into the ventral pancreatic duct. - Cells for cytology obtained in the ventral pancreatic duct in the head of the pa Since the patient still has abdominal pain I will order repeat CT scan of the abdomen pelvis.
--- NOTE | 2024-08-23 20:09 | CT_ITS ---
PROCEDURE: ABDOMEN/PELVIS W IV CONT ONLY 08/23/2024 REASON FOR EXAM: ABDOMINAL PAIN TECHNIQUE: Abdomen and pelvis CT with intravenous contrast. Coronal and Sagittal reconstruction series were provided. PATIENT PREPARATION: Per protocol ORAL CONTRAST TYPE: None. CONTRAST: Isovue 370 VOLUME: 100 mL One or more dose reduction techniques were used (e.g., Automated exposure control, adjustment of the mA and/or kV according to patient size, use of iterative reconstruction technique. RADIATION DOSE SUMMARY: CTDlvol: 21 mGy DLP: 410 mGycm COMPARISON: CT abdomen pelvis earlier same day. FINDINGS: Slight interval decrease in the left hepatic lobe pneumobilia. Stable common bile duct and pancreatic duct stents. No lymphadenopathy. Mild mixed plaque of the aortoiliac vessels. The remaining abdominopelvic structures are unchanged from CT from earlier same day. See separate dictation for additional findings. CT/Abdomen/Pelvis W IV Cont ONLY IMPRESSION: No acute abdominopelvic findings on contrast-enhanced CT. Reading Location: [id number]
[2024-08-23] MEDS: Acetaminophen 325 MG Tablet 650 MG PO (21:47)
[2024-08-23] MEDS: Zolpidem Tartrate 5 MG Tablet 10 MG PO (23:51)
[2024-08-24 04:00] VITALS: BP 103/50; PULSE 64; RESP 16; TEMP 36.6; O2SAT 94
[2024-08-24] MEDS: oxyCODONE 5 MG Tablet PO ×3 (04:16→13:04)
[2024-08-24 05:20] LABS: Absolute Lymphocyte Count 1.18 X10^3/uL (0.83-4.51); Absolute Neutrophil Count 6.4 X10^3/uL (2.0-7.7); Basophil# 0.04 X10^3/uL; Basophil% 0.5 % (0-1); Eosinophil# 0.18 X10^3/uL; Eosinophils% 2.2 % (0-5); Hematocrit 36.5 % (37-47); Lymphocyte # 1.18 X10^3/ul (0.83-4.51); Lymphocyte % 14.1 % (19-41); Mean Corp Hgb Conc 32.9 g/dL (32-36); Mean Corpuscular Hgb 31.6 pg (27.0-32.0); Mean Corpuscular Volume 96.1 fL (81-99); Mean Platelet Vol. 10.1 fl (6.2-12.0); Monocyte# 0.55 X10^3/uL; Monocyte% 6.6 % (0-10); NRBC Flagged by Analyzer 0 % (0-5); Neutrophil # 6.37 X10^3/uL (2.7-7.7); Platelet Count 246 K/mm3 (150-450); RBC Distribution Width SD 48.5 fl (35.1-43.9); White Blood Count 8.4 K/mm3 (4.4-11.0)
[2024-08-24 07:13] LABS: ALB/GLOB Ratio 1.4 RATIO (0.9-2.4); AST(SGOT) 54 U/L (<=31); Alanine Aminotransfer ALT/SGPT 184 U/L (<=34); Albumin, Serum 3.5 g/dL (3.5-5.0); Alkaline Phosphatase 163 U/L (35-104); Anion Gap 12 (5-15); BUN 11 mg/dL (4-19); BUN/Creat Ratio 10.5 RATIO (10-20); Calcium,Total 8.8 mg/dL (7.6-11.0); Carbon Dioxide 21.5 mmol/L (21.0-32.0); Chloride 104 mmol/L (98-108); Creatinine, Serum 1.02 mg/dL (0.70-1.20); EST Glomerular Filtration Rate 70 (>60); Estimated Creatinine Clearance 60.78 ml/min (50-250); Globulin 2.5 g/dL (2.2-4.2); Glucose 126 mg/dL (70-99); Potassium 4.2 mmol/L (3.3-5.1); Sodium Level 137 mmol/L (133-145); Total Bilirubin 0.32 mg/dL (0.00-1.30)
[2024-08-24 08:40] VITALS: BP 124/77; PULSE 61; RESP 16; TEMP 36.5; O2SAT 93
[2024-08-24] MEDS: Scopolamine 1mg/72hr Patch 1 PATCH TD (08:43)
[2024-08-24] MEDS: Lidocaine 5% Patch 1 PATCH TOPICAL (08:43)
[2024-08-24 08:45] VITALS: PULSE 61
[2024-08-24] MEDS: Metoprolol(XL)Succ 25 MG Tablet PO (08:45)
[2024-08-24] MEDS: Enoxaparin 40 MG/0.4 ML Syringe SC (08:45)
[2024-08-24] MEDS: Spironolactone 25 MG Tablet PO (08:45)
[2024-08-24] MEDS: Pantoprazole Sodium 40 MG Tablet PO (08:45)
[2024-08-24] MEDS: Meloxicam 15 MG Tablet PO (08:46)
[2024-08-24] MEDS: Sucralfate 1 GM Tablet PO (08:46)
[2024-08-24] MEDS: 0.9% Saline Lock 10 ML Syringe IV (08:52)
[2024-08-24] MEDS: ALPRAZolam 0.5 MG Tablet PO (08:52)
[2024-08-24 13:08] VITALS: BP 120/73; PULSE 58; RESP 16; TEMP 36.6; O2SAT 100
--- NOTE | 2024-08-24 13:12 | DCINST_ITS ---
Discharge Instructions Diet Discharge Diet: Low fat / Low cholesterol DC O2, CPAP, BIPAP needs Home O2 Discharge instructions: No Dressing / Incision Discharge Activity: Return to Normal Activity Weight Bearing Status: Weight bearing as tolerated Dressing / Incision Call your doctor if you observe: Fever of 101 or Higher, Shortness of breath, Dizziness, Swelling in the ankles and Chest pain Follow Up Care Test Results: Test results from this visit will be discussed in further detail at your follow- up appointment, if applicable. Discharge Plan Admission Admit Date/Time: 08/20/24 17:47 Primary Reason for Your Visit: acute choledocholithiasis Attending Provider: Taylor Tejeda Primary Care Provider: Dex Wilkinson Consulting Providers: Lopez Larios Instructions Patient Instructions: ED Gallstones with Biliary Colic Discharge Orders/Prescriptions Prescriptions: New oxycodone 5 mg Tablet 5 mg PO Q4H PRN PRN (Reason: Pain Score 4-10) 3 Days Qty: 12 0RF Continued metoprolol succinate 25 mg tablet extended release 24 hr 25 mg PO QDAY meloxicam 15 mg tablet 15 mg PO QDAY Qty: 30 3RF alprazolam 0.5 mg tablet 0.5 mg PO BID Patient Comments: TAKE 1 TABLET BY MOUTH TWICE DAILY zolpidem 10 mg tablet 10 mg PO QHS sucralfate [Carafate] 1 gram tablet 1 g PO BIDCM pantoprazole 40 mg tablet,delayed release (DR/EC) 40 mg PO BID spironolactone 25 mg tablet 25 mg PO DAILY scopolamine base 1 mg over 3 days patch 3 day 1 patch topical Q3D Referrals / Follow Up: Dex Wilkinson MD [Primary Care Provider] - Within 1 Week Quang Myles DO [Med Staff - Active Staff] - Within 2 Weeks Disposition Disposition (needs filled in before D/C Order can be placed): Home, Self Care
--- NOTE | 2024-08-24 13:12 | DS.PCM_ITS ---
Providers Date of Admission: 08/20/24 Date of Discharge: 08/24/24 Primary Care Physician: Dr. Dex Wilkinson MD Consultations 08/20/24 18:58 Consult: Gastroenterology Routine Consulting Provider: [facility] Reason for Consult: worsening RUQ pain EMERGENT Consult: No Notified: Yes Date Notified: 08/20/24 Time Notified: 18:47 Method of Notification: Text Reason For Visit: RUQ PAIN W/ WORSENING LFT'S Diagnosis Discharge Diagnosis (1) Abdominal pain: Status: Acute Code(s): R10.9 - Unspecified abdominal pain Qualifiers: Abdominal location: unspecified location Qualified Code(s): R10.9 - Unspecified abdominal pain (2) Elevated liver enzymes: Status: Acute Code(s): R74.8 - Abnormal levels of other serum enzymes (3) Dilated pancreatic duct: Status: Acute Code(s): K86.89 - Other specified diseases of pancreas Plan #Acute choledocholithiasis * She was admitted with right upper quadrant abdominal pain. 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 Choledocholithiasis was also found and complete removal was accomplished by biliary sphincterotomy and balloon extraction and a single pancreatic stone was found. Temporary stents placed in the common bile duct and another 1 in the ventral pancreatic duct. * CT of the abdomen and pelvis showed hepatomegaly with double duct sign. Liver ultrasound showed hepatomegaly with pancreatic duct dilatation. * IV Zofran for nausea. She also has a scopolamine patch. Continue gentle hydration with IVF. * GI on board. * she still complains of abdominal pain and right CVA pain. Will get CT without contrast to evaluate for kidney stones. * IV morphine dc'd and patient now on IV dilaudid. * #Chronic heart failure with reduced ejection fraction in setting of familial hypertrophic cardiomyopathy * Has ICD in place. Follows with [facility] cardiology. * 2D echo showed EF of 35% with mild concentric left ventricular hypertrophy and global ventricular hypokinesis with stage II diastolic dysfunction. * Chest x-ray showed no evidence of volume overload. On spironolactone and metoprolol #Anxiety and insomnia: On alprazolam and zolpidem GERD: PPI DVT prophylaxis: Lovenox Medications at Discharge Home Medications alprazolam 0.5 mg tablet 0.5 mg PO BID 11/13/21 zolpidem 10 mg tablet 10 mg PO QHS 11/13/21 sucralfate 1 gram tablet (Carafate) 1 g PO BIDCM 07/10/24 metoprolol succinate 25 mg tablet,extended release 24 hr 25 mg PO QDAY 08/08/24 meloxicam 15 mg tablet 15 mg PO QDAY #30 tabs 08/10/24 pantoprazole 40 mg tablet,delayed release 40 mg PO BID 08/11/24 scopolamine base 1 mg over 3 days transdermal patch 1 patch topical Q3D 08/20/24 spironolactone 25 mg tablet 25 mg PO DAILY 08/20/24 oxycodone 5 mg tablet 5 mg PO Q4H PRN PRN Pain Score 4-10 3 days #12 tabs 08/24/24 Hospital Course Operations ERCP Procedures None Summary of Care Provided Minutes Spent on Discharge: 45 Hospital Course: Patient is a 43-year-old female with an extensive past medical history as outlined including familial hypertrophic cardiomyopathy s/p ICD placement and breast cancer s/p lumpectomy as well as ovarian cancer s/p abdominal hysterectomy was admitted to the ED on 08/20/2024 with right upper quadrant pain. She had been seen previously in the ED in June 2024 for abdominal pain and CT at that time showed evidence of inflammatory bowel disease. She had EGD and colonoscopy done on July 12 and it showed congested mucosa in the terminal ileum but otherwise normal-appearing colon. EGD showed acute gastritis with hemorrhage and this was biopsied. The biopsy from the terminal ileum showed focal active colitis. He continues to have abdominal pain and saw gastroenterology on 08/08/2024. Labs done at that time showed evidence of cholestatic hepatitis. CT of the abdomen and pelvis showed hepatomegaly which was initially thought to be due to heart failure. MRCP was ordered but patient had yet to do it on outpatient basis and the pain worsened so she came into the ED. In the ED her liver enzymes were elevated and liver ultrasound showed hepatomegaly with nonspecific pancreatic duct dilation to 6.5 mm. She was admitted and gastroenterology was consulted. She was placed on IV Dilaudid and was managed for acute hepatitis. She had ERCP which showed biliary papillary stenosis and a single localized biliary stricture which was noted in the lower third of the main bile duct and mild dilatation of the pancreatic duct as well as a pancreatic duct stricture which was found. Choledocholithiasis was also found and complete removal was accomplished by biliary sphincterotomy and balloon extraction and a single pancreatic stone was found. Temporary stents placed in the common bile duct and another 1 in the ventral pancreatic duct. Postop course was not complicated. She was continued on her pain meds and felt better. She was discharged home on 08/24/2024 and is follow-up with her primary care doctor within 1 to 2 weeks. Of note she was discharged on p.o. oxycodone 5 mg every 4 as needed for total of 12 tablets for 3 days. OARRS score was checked and no red flags were seen. Patient was seen and examined prior to discharge. She felt well and pain had improved. She had an uneventful night. Review of systems otherwise negative. Labs and vitals reviewed. Home medication reviewed and reconciled. Physical Exam Const alert, oriented x3 and average body habitus Constitutional Narrative: frail, General Appearance: cooperative Orientation / Consciousness: awake Exam Limitations: no limitations HEENT normocephalic, head/scalp atraumatic and hearing grossly normal bilaterally Mouth: oral and palatal mucosa normal Eyes EOMs intact bilaterally and conjunctivae normal Neck full ROM, supple and no JVD Lymph Lymphatic: no lymphedema noted Resp normal respiratory effort, normal air movement, no use of accessory muscles and clear to auscultation bilaterally Cardio regular rate, regular rhythm, S1 normal heart sound, S2 normal heart sound, no murmurs and peripheral pulses 2+ throughout GI normal to inspection, nondistended, normoactive bowel sounds, soft to palpation and non-tender Back/Spine normal ROM Extremity normal to inspection, full ROM, normal capillary refill and no clubbing, cyanosis or edema General Extremity: no tenderness to palpation of joints or extremities Skin no rashes or lesions noted General Skin Exam: no breakdown Neuro CN's II-XII intact bilaterally Motor Exam: general weakness Psych mental status grossly normal, thought process normal and cooperative Appearance: appropriate Weight / BMI Weight Weight: 126 lb 8.725 oz Body Mass Index (BMI) 21.7 ABG / Lab / Microbiology Data 08/24/24 05:12 08/24/24 05:12 Laboratory: Laboratory Results - last 24 hr 08/24/24 05:12: WBC 8.4, RBC 3.80 L, Hgb 12.0, Hct 36.5 L, MCV 96.1, MCH 31.6, MCHC 32.9, RDW Std Deviation 48.5 H, RDW Coeff of Damon 14.0, Plt Count 246, MPV 10.1, Immature Gran % (Auto) 0.600, Neut % (Auto) 76.0 H, Lymph % (Auto) 14.1 L, [place] % (Auto) 6.6, Eos % (Auto) 2.2, Baso % (Auto) 0.5, Absolute Neuts (auto) 6.4, Absolute Lymphs (auto) 1.18, Nucleated RBC % 0, Sodium 137, Potassium 4.2, Chloride 104, Carbon Dioxide 21.5, Anion Gap 12, BUN 11, Creatinine 1.02, Estim Creat Clear Calc 60.78, Est GFR (MDRD) Non-Af 70, BUN/Creatinine Ratio 10.5, G lucose 126 H, Calcium 8.8, Total Bilirubin 0.32, AST 54 H, ALT 184 H, Alkaline Phosphatase 163 H, Total Protein 6.0, Albumin 3.5, Globulin 2.5, Albumin/Globulin Ratio 1.4 Radiography Diagnostic Testing: Radiology Impression Abdomen/Pelvis CT 08/23/24 17:25 IMPRESSION: 1. No acute abdominopelvic finding. 2. Stable moderate cardiomegaly. 3. Hepatomegaly with diffuse hepatic steatosis. Reading Location: [facility] Abdomen/Pelvis CT 08/23/24 20:09 IMPRESSION: No acute abdominopelvic findings on contrast-enhanced CT. Reading Location: [facility] D/C Instructions Discharge Diet: Low fat / Low cholesterol Discharge Activity: Return to Normal Activity Weight Bearing Status: Weight bearing as tolerated Call your doctor if you observe: Fever of 101 or Higher, Shortness of breath, Dizziness, Swelling in the ankles and Chest pain DC O2, CPAP, BIPAP Needs Home O2 Discharge instructions: No DC home with Oxygen: No Meaningful Use Info Meaningful Use Meaningful Use Diagnoses (Choose all that apply): None applicable Ischemic Stroke Statin Dosing Therapy Reference: STATIN DOSE THERAPY REFERENCE: * Patients > 75 years receive moderate or high dose statin therapy. * Patients 75 years or YOUNGER should receive HIGH intensity statin dose unless contraindicated. You will be required to document reason for non-treatment if statin daily dose does not meet guidelines. HIGH DOSE STATIN THERAPY DAILY Atorvastatin > than or = to 40 mg Rosuvastatin > than or = to 20 mg Amlodipine + Atorvastatin > than or = to 2.5/40 mg Ezetimibe + Simvastatin 10/80 mg Simvastatin 80mg Discharge Plan Admission Admit Date/Time: 08/20/24 17:47 Primary Reason for Your Visit: acute choledocholithiasis Attending Provider: Taylor Tejeda Primary Care Provider: Dex Wilkinson Consulting Providers: Lopez Larios Instructions Patient Instructions: ED Gallstones with Biliary Colic Discharge Orders/Prescriptions Prescriptions: New oxycodone 5 mg Tablet 5 mg PO Q4H PRN PRN (Reason: Pain Score 4-10) 3 Days Qty: 12 0RF Continued metoprolol succinate 25 mg tablet extended release 24 hr 25 mg PO QDAY meloxicam 15 mg tablet 15 mg PO QDAY Qty: 30 3RF alprazolam 0.5 mg tablet 0.5 mg PO BID Patient Comments: TAKE 1 TABLET BY MOUTH TWICE DAILY zolpidem 10 mg tablet 10 mg PO QHS sucralfate [Carafate] 1 gram tablet 1 g PO BIDCM pantoprazole 40 mg tablet,delayed release (DR/EC) 40 mg PO BID spironolactone 25 mg tablet 25 mg PO DAILY scopolamine base 1 mg over 3 days patch 3 day 1 patch topical Q3D Referrals / Follow Up: Dex Wilkinson MD [Primary Care Provider] - 08/31/24 1:15 pm Quang Myles DO [Med Staff - Active Staff] - Within 2 Weeks (office closed at time of discharge please call office to schedule ) Disposition Disposition (needs filled in before D/C Order can be placed): Home, Self Care Charges/Coding Visit Charges Inpatient E&M: 06280 Disch Hosp >30min
--- NOTE | 2024-08-24 13:55 | CASEMGMT ---
JAJA DOMINGUEZ NOTE: DC order is in. RN CM to room. Pt ambulating in room ad petey. She denies having any discharge needs or concerns. Gilberto KIRBYN JAJA DOMINGUEZ
[2024-08-24 15:22] VITALS: BP 103/61; PULSE 54; RESP 16; TEMP 36.6; O2SAT 99
== END 2024-08-24 15:36 | disposition home or self-care (01) | DRG 445 ==
LOC: ED 15:31 → PCU 18:25
PROVIDERS: Internal Medicine Gastroenterology; Admitting Provider Hospitalist; Emergency Provider Emergency Medicine; PCP Family Medicine; Visit Provider Student in an Organized Health Care Education/Training Program
PROC: 0FC98ZZ Extirpation of Matter from Common Bile Duct, Via Natural or Artificial Opening Endoscopic (ICD-10-PCS; CPT 43260; principal; 2024-08-21 15:40)
DX: K80.51 Calculus of bile duct without cholangitis or cholecystitis with obstruction (principal); I42.2 Other hypertrophic cardiomyopathy; I50.22 Chronic systolic (congestive) heart failure; I11.0 Hypertensive heart disease with heart failure; K21.9 Gastro-esophageal reflux disease without esophagitis; F17.210 Nicotine dependence, cigarettes, uncomplicated; K29.00 Acute gastritis without bleeding; K83.8 Other specified diseases of biliary tract; F41.9 Anxiety disorder, unspecified; K86.89 Other specified diseases of pancreas; Z82.49 Family history of ischemic heart disease and other diseases of the circulatory system; R74.8 Abnormal levels of other serum enzymes; G47.00 Insomnia, unspecified; Z90.710 Acquired absence of both cervix and uterus; Z95.810 Presence of automatic (implantable) cardiac defibrillator; Z85.3 Personal history of malignant neoplasm of breast; Z85.43 Personal history of malignant neoplasm of ovary
CPT/HCPCS: 36415; 71046; 74176; 74177; 74330; 76000; 76705; 80053; 81001; 83690; 83880; 84703; 85025; 85027; 88108; 88305; 88307; 88313; 93005; 94668; 97802; 99284; C2625; Q9967; A4216; J2405

== ENCOUNTER → 2024-08-27 | Outpatient (CLI) | payer OTHER, SELFPAY ==
--- NOTE | 2024-08-27 11:02 | MRI_ITS ---
PROCEDURE: MRCP ABDOMEN WITHOUT CONTRAST 08/27/2024 REASON FOR EXAM: CHOLESTATIC HEPATITIS TECHNIQUE: MRCP ABDOMEN WITHOUT CONTRAST Multiplanar and multisequence images were obtained. CONTRAST: None. COMPARISON: CT scan on 08/23/2024. FINDINGS: Minimal bilateral pleural effusions. Passive atelectatic airspace disease of the lower lobes. Mild cardiomegaly. Hepatomegaly with hepatic steatosis. Pneumobilia in the left hepatic lobe. Prior cholecystectomy. Unremarkable stents in the common bile and pancreatic ducts. Mild edema of the pancreatic head and uncinate process, possibly mild changes of acute pancreatitis. Please correlate with lipase value. Mild diffuse thickening of the stomach, probably gastritis. Minimal perihepatic free fluid. Normal extrahepatic biliary system. Normal unenhanced spleen. Normal bilateral adrenal glands. Normal size of the right kidney. There is no right renal mass. There are no right renal calculi. There is no right hydronephrosis. Normal visualized right ureter. Normal size of the left kidney. There is no left renal mass. There are no left renal calculi. There is no left hydronephrosis. Normal visualized left ureter. Normal visualized small intestine. Normal visualized colon. There is no demonstrated peritoneal fluid. Normal abdominal aorta. Normal inferior vena cava. Normal retroperitoneum. Normal abdominal wall. MRI/MRCP Abdomen without Contrast IMPRESSION: 1. Minimal bilateral pleural effusions. 2. Passive atelectatic airspace disease of the lower lobes. 3. Mild cardiomegaly. 4. Hepatomegaly with hepatic steatosis. 5. Pneumobilia in the left hepatic lobe. 6. Prior cholecystectomy. 7. Unremarkable stents in the common bile and pancreatic ducts. 8. Mild edema of the pancreatic head and uncinate process, possibly mild change s of acute pancreatitis. Please correlate with lipase value. 9. Mild diffuse thickening of the stomach, probably gastritis. 10. Minimal perihepatic free fluid. Reading [facility]
[2024-08-27 11:30] VITALS: BP 150/94; PULSE 65; RESP 18; O2SAT 98
[2024-08-27 11:44] VITALS: BP 137/89; PULSE 56; RESP 18; O2SAT 99
[2024-08-27 11:58] VITALS: BP 128/64; PULSE 65; RESP 18; O2SAT 96
[2024-08-27 12:03] VITALS: BP 134/75; PULSE 63; RESP 18; O2SAT 96
== END | disposition home or self-care (01) ==
LOC: OPMRI 11:01
PROVIDERS: PCP Family Medicine; Referring Provider Internal Medicine Gastroenterology; Visit Provider Internal Medicine Gastroenterology
DX: K75.89 Other specified inflammatory liver diseases (principal); I27.20 Pulmonary hypertension, unspecified; R10.9 Unspecified abdominal pain
CPT/HCPCS: 74181

== ENCOUNTER → 2024-08-28 | Outpatient (CLI) | payer OTHER, SELFPAY ==
--- NOTE | 2024-08-28 11:53 | NM_ITS ---
PROCEDURE: GASTRIC EMPTYING STUDY 08/28/2024 REASON FOR EXAM: ABDOMINAL PAIN TECHNIQUE: The patient ingested a standard meal of oatmeal and sulfur colloid and water. There was no vomiting postprandially. Anterior and posterior planar images of the upper abdomen were obtained for 1 minute immediately following the meal at 1h, 2h and 4h if more than 10% of the activity persisted within the stomach. Regions of interest were drawn, and a geometric mean was used to calculate a [id number]. RADIOPHARMACEUTICAL: Sulfur colloid DOSE 1.1mCi FINDINGS: Percent activity remaining in stomach: 1 hour 32 % (normal 37-90%) NM/Gastric Emptying Study IMPRESSION: Normal gastric emptying. Reading Location: [facility]
== END | disposition home or self-care (01) ==
LOC: NM 11:53
PROVIDERS: PCP Family Medicine; Referring Provider Internal Medicine Gastroenterology; Visit Provider Internal Medicine Gastroenterology
DX: I27.20 Pulmonary hypertension, unspecified (principal); R10.9 Unspecified abdominal pain; K21.9 Gastro-esophageal reflux disease without esophagitis
CPT/HCPCS: 78264; A9541

== ENCOUNTER 2024-09-11 17:19 | Observation (INO) | payer OTHER, SELFPAY ==
[2024-09-11] VITALS (7 sets, daily range): BP systolic 127–155; BP diastolic 84–117; PULSE 68–107; RESP 16–18; TEMP 35.5–36.6; O2SAT 98–99; BMI 21.6
[2024-09-11 20:04] LABS: Hematocrit 43.2 % (37-47); Hemoglobin 14.1 g/dL (12.0-15.0); Immature Granulocytes Count 0.070 X10^3/uL (0.0-0.0); Mean Corp Hgb Conc 32.6 g/dL (32-36); Mean Corpuscular Volume 93.9 fL (81-99); Mean Platelet Vol. 11.1 fl (6.2-12.0); NRBC Flagged by Analyzer 0 % (0-5); POSITIVE DIFFERENTIAL YES; Platelet Count 338 K/mm3 (150-450); RBC Distribution Width CV 14.5 % (11.6-14.6); RBC Distribution Width SD 49.7 fl (35.1-43.9); Red Blood Count 4.60 M/mm3 (4.2-5.4); White Blood Count 14.8 K/mm3 (4.4-11.0)
[2024-09-11 20:17] LABS: AST(SGOT) 27 U/L (<=31); Alanine Aminotransfer ALT/SGPT 24 U/L (<=34); Albumin, Serum 4.4 g/dL (3.5-5.0); Alkaline Phosphatase 164 U/L (35-104); Anion Gap 14 (5-15); BUN 17 mg/dL (4-19); BUN/Creat Ratio 20.4 RATIO (10-20); Calcium,Total 9.7 mg/dL (7.6-11.0); Carbon Dioxide 18.9 mmol/L (21.0-32.0); Chloride 104 mmol/L (98-108); Estimated Creatinine Clearance 73.80 ml/min (50-250); Globulin 3.1 g/dL (2.2-4.2); Glucose 107 mg/dL (70-99); Lipase 112 U/L (13-75); Potassium 4.2 mmol/L (3.3-5.1)
[2024-09-11 21:44] LABS: Mucous, Urine 0 SEEN /hpf (<or=2+)
[2024-09-11 21:46] LABS: Color, Urine Yellow (Yellow); Glucose, Dipstick Normal (Normal); Ketone-Dipstick Negative (Negative); Leukocyte Esterase-Dipstick Negative /ul (Negative); Nitrite-Dipstick Negative (Negative); Occult Blood-Urine 50 /ul (Negative); Protein-Dipstick 100 mg/dl (Negative); Specific Gravity, Urine 1.010 (1.002-1.030); Urine Bilirubin Dipstick Negative (Negative)
[2024-09-11] MEDS: 0.9% Normal Saline (1000mL) 1,000 ML 999 ML IV (21:55)
[2024-09-11 22:12] LABS: Hematocrit 42.0 % (37-47); Hemoglobin 13.8 g/dL (12.0-15.0); Immature Granulocytes Count 0.080 X10^3/uL (0.0-0.0); Mean Corp Hgb Conc 32.9 g/dL (32-36); Mean Corpuscular Volume 94.4 fL (81-99); Mean Platelet Vol. 10.2 fl (6.2-12.0); NRBC Flagged by Analyzer 0 % (0-5); POSITIVE DIFFERENTIAL YES; Platelet Count 349 K/mm3 (150-450); RBC Distribution Width CV 14.6 % (11.6-14.6); RBC Distribution Width SD 49.9 fl (35.1-43.9); Red Blood Count 4.45 M/mm3 (4.2-5.4); White Blood Count 13.7 K/mm3 (4.4-11.0)
--- NOTE | 2024-09-11 22:20 | EX.ED.DYSGE1 ---
HPI History of Present Illness Chief Complaint: Abd Pain Narrative Narrative: Chief complaint and HPI: Epigastric abdominal pain. 43-year-old female with past medical history of familiar hypertrophic cardiomyopathy status post ICD placement, breast cancer, ovarian cancer presents for evaluation of epigastric abdominal pain. Patient states for several weeks she has been having epigastric abdominal pain. States that she had an appointment recently with Dr. Dennison in which she had a celiac block performed due to pain. She states that this did not improve her pain. She states for the past several days her pain has been more severe. States she called the office and they told her to present to the emergency department. She denies any fever, chills, chest pain, shortness of breath, dysuria, diarrhea, constipation. Does have associated nausea. States she is scheduled to see Dr. Myles on the 09/13. Review of systems: See HPI Medications: As listed on the chart Allergies: As listed on the chart PFSH: Per chart Vital signs: As listed on the chart. Reviewed. Physical exam: Gen: A&O x3, tearful and uncomfortable secondary to pain Head: Normocephalic, atraumatic Eyes: No sclera icterus, conjunctiva clear ENT: Moist mucous membranes Neck: Trachea midline, No JVD CV: RRR, no murmurs, no peripheral edema Resp: Lungs CTA BL, no w/r/c GI: Abd soft, non-distended, tender to palpation in the epigastrium, + voluntary guarding, no rebound or rigidity : No CVA tenderness, injection site for celiac plexus without infection and healing well Musc: Full ROM, no deformity Skin: Warm, dry Neuro: Alert, oriented, grossly intact, sensation intact Psych: Cooperative [facility] Medical History Hypertension Severe pulmonary hypertension History of hypertrophic cardiomyopathy Acute systolic congestive heart failure, NYHA class 3 Leukocytosis Cancer History of steroid therapy Easy bruising Migraine headache History of hiatal hernia History of ulceration History of IBS Abdominal bloating Stomach pain Nausea & vomiting Shortness of breath on exertion Smoker History of echocardiogram Chest pain Pulmonary embolism Endometrial cancer Cervical cancer 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 of 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 Ovarian cancer GERD (gastroesophageal reflux disease) Insomnia Anxiety Collapsed lung History of blood clots Asthma Breast cancer Pacemaker ICD (implantable cardioverter-defibrillator) in place Hypertrophic cardiomyopathy Home Medications Medication Instructions Recorded Last Taken Type alprazolam 0.5 mg tablet 0.5 mg PO BID ANXIETY 11/13/21 09/11/24 History zolpidem 10 mg tablet 10 mg PO QHS SLEEP 11/13/21 09/10/24 History sucralfate 1 gram tablet (Carafate) 1 g PO BIDCM GERD 07/10/24 09/10/24 History metoprolol succinate 25 mg 25 mg PO QDAY HEART 08/08/24 09/10/24 History tablet,extended release 24 hr pantoprazole 40 mg tablet,delayed 40 mg PO BID GERD 08/11/24 09/10/24 History release spironolactone 25 mg tablet 25 mg PO DAILY WATER PILL 08/20/24 09/10/24 History Allergy/AdvReac Type Severity Reaction Status Date / Time morphine Allergy Mild Hives Verified 09/11/24 17:21 codeine Allergy Hives Verified 09/11/24 17:21 erythromycin base Allergy PT UNSURE Verified 09/11/24 17:21 OF REACTION Fish Containing Products Allergy Other Verified 09/11/24 17:21 levofloxacin Allergy PT UNSURE Verified 09/11/24 17:21 OF REACTION shellfish derived Allergy Other Verified 09/11/24 17:21 tramadol Allergy Hives Verified 09/11/24 17:21 trimethobenzamide (From Allergy Other Verified 09/11/24 17:21 Tigan) gabapentin (From Neurontin) AdvReac Severe Anaphylaxis Verified 09/11/24 17:21 acetaminophen (From Vicodin) AdvReac Other Verified 09/11/24 17:21 hydrocodone (From Vicodin) AdvReac Other Verified 09/11/24 17:21 metoclopramide (From Reglan) AdvReac Other Verified 09/11/24 17:21 Family History Father Heart disease Idiopathic hypertrophic subaortic stenosis, hypertrophic obstructive cardiomyopathy, congestive heart failure Mother Breast cancer DVT (deep venous thrombosis) Sister Hypertrophic obstructive cardiomyopathy heart transplant at age 34 Cancer Brain, breast, and colon Grandfather Heart disease at age 45 Grandmother CVA (cerebral vascular accident) age 43 Surgical History Presence of implantable cardioverter-defibrillator (ICD) History of cardiac catheterization History of oophorectomy History of cervical polypectomy History of colonoscopy History of tubal ligation History of mastectomy History of cholecystectomy Hx of appendectomy Social History household members: spouse and family housing: house current occupational status: employed Smoking Status: Current every day smoker tobacco type: cigarettes how long ago did patient quit smokin months ago alcohol intake: former substance use type: does not use caffeine: Yes EXAM Physical Exam Const Vital Signs: 09/11/24 17:19 09/11/24 19:19 09/11/24 21:00 Temperature 96.0 F L Temperature Source Oral Pulse Rate 107 H Respiratory Rate 18 Blood Pressure 149/106 H 155/117 H 127/84 H Blood Pressure Mean 120 129 98 Pulse Ox 99 Oxygen Delivery Method Room Air 09/11/24 22:23 09/11/24 23:00 09/11/24 23:03 Temperature 96 F L 98 F 98 F Temperature Source Temporal Oral Oral Pulse Rate 107 H 68 Respiratory Rate 16 16 Blood Pressure 127/84 H 133/90 H Blood Pressure Mean 98 104 Pulse Ox 99 98 Oxygen Delivery Method Room Air Room Air MDM MDM MDM Narrative Medical decision making narrative: 43-year-old female with past medical history of familiar hypertrophic cardiomyopathy status post ICD placement, breast cancer, ovarian cancer presents for evaluation of epigastric abdominal pain. States she has been having chronic epigastric pain for several weeks. Recently had a celiac plexus block without improvement. On chart review, patient was recently discharged from the hospital on 08/24/2024 for acute choledocholithiasis. She had an ERCP which showed biliary papillary stenosis and a single localized biliary stricture which was noted in the lower third of the main bile duct and mild dilation of the pancreatic duct. She had a biliary sphincterotomy with stone removal. Stents placed. Dr. Myles is the one who performed the ERCP. On 08/27/2024 she had a MRCP that shows hepatomegaly with hepatic steatosis, pneumobilia in the left hepatic lobe. Unremarkable common bile duct and pancreatic cyst ducts. Mild edema of the pancreatic head possible pancreatitis. She had a gastric emptying study on 08/28 that showed normal gastric emptying. I could not find a procedure note from her recent celiac plexus block. Differential diagnosis includes but is not limited to pancreatitis, PUD, gastritis, colitis, UTI. Patient has hives listed as an allergy to most pain medicine including hydrocodone, tramadol, codeine, morphine. Patient states she can only take Dilaudid. Dilaudid, NS bolus, Zofran ordered for symptoms. Laboratory workup ordered including CT abdomen pelvis. Patient had protocol labs placed and completed in triage, this was personally missed by myself and therefore she had repeat labs performed. Most recent set of labs shows a CBC of 13.7 otherwise unremarkable. BMP without significant electrolyte abnormality or RADHA. Hepatic panel without transaminitis. Patient has mildly elevated direct bilirubin at 0.5, chronically elevated alkaline phosphatase. Lipase elevated at 113. On 08/20/2024 patient had normal lipase. Although this is not 3 times the upper limit, concern is for acute pancreatitis likely from celiac plexus block. Serum negative. UA negative for UTI. CT abdomen pelvis shows hepatomegaly with diffuse hepatic steatosis. Biliary stent in good position. Pancreatic stent in good position. No acute pancreatic pathology. On reevaluation, patient states her pain is mildly improved. She is still very tender on physical exam. Patient will warrant admission for intractable abdominal pain possibly from early pancreatitis. Patient was discussed with the hospitalist who accepted admission. Patient updated of all the results and the plan. She confirmed understanding. Impression 1. Intractable epigastric abdominal pain with history of chronic epigastric abdominal pain 2. Possible pancreatitis 3. Recent celiac plexus block Lab Data Labs: Laboratory Results - last 24 hr 09/11/24 09/11/24 09/11/24 19:39 21:30 22:00 WBC 14.8 H 13.7 H RBC 4.60 4.45 Hgb 14.1 13.8 Hct 43.2 42.0 MCV 93.9 94.4 MCH 30.7 31.0 MCHC 32.6 32.9 RDW Std Deviation 49.7 H 49.9 H RDW Coeff of Damon 14.5 14.6 Plt Count 338 349 MPV 11.1 10.2 Immature Gran % (Auto) 0.500 0.600 Neut % (Auto) 94.8 H 94.7 H Lymph % (Auto) 3.5 L 3.6 L Parke % (Auto) 0.7 0.7 Eos % (Auto) 0.1 0.1 Baso % (Auto) 0.4 0.3 Absolute Neuts (auto) 14.0 H 13.0 H Absolute Lymphs (auto) 0.51 L 0.49 L Nucleated RBC % 0 0 Sodium 137 138 Potassium 4.2 4.1 Chloride 104 105 Carbon Dioxide 18.9 L 17.8 L Anion Gap 14 15 BUN 17 19 Creatinine 0.84 0.77 Estim Creat Clear Calc 73.80 80.51 Est GFR (MDRD) Non-Af 88 97 BUN/Creatinine Ratio 20.4 H 24.2 H Glucose 107 H 132 H Lactic Acid 1.6 Calcium 9.7 9.4 Total Bilirubin 0.87 0.97 Direct Bilirubin 0.50 H AST 27 23 ALT 24 17 Alkaline Phosphatase 164 H 163 H Total Protein 7.5 7.4 Albumin 4.4 4.4 Globulin 3.1 3.0 Albumin/Globulin Ratio 1.4 Lipase 112 H 113 H Serum , Qual NEGATIVE Urine Color Yellow Urine Clarity Sl. Cloudy Urine pH 7.0 Ur Specific [place] 1.010 Urine Protein 100 H Urine Glucose (UA) Normal Urine Ketones Negative Urine Occult Blood 50 H Urine Nitrite Negative Urine Bilirubin Negative Urine Urobilinogen 1 H Ur Leukocyte Esterase Negative Urine RBC 0-5 SEEN Urine WBC 0-5 SEEN Ur Squamous Epith Cells 10-25 SEEN Urine Bacteria 0 SEEN Urine Mucus 0 SEEN Radiography Diagnostic Testing: Clinical Impression(s) from Imaging Studies Abdomen/Pelvis CT 09/11/24 22:28 IMPRESSION: Medical liver disease. Correlate for possible hepatitis. Reading Location: [place] [id number] Discharge Plan Disposition Disposition: Acute Care Hospital [facility] Discharge Date/Time: 09/12/24 00:11
[2024-09-11 22:25] LABS: Red Blood Cells-Urine 0-5 SEEN /hpf (0-5); Squamous Epithelial Cells - UA 10-25 SEEN /hpf (5-10)
--- NOTE | 2024-09-11 22:28 | CT_ITS ---
PROCEDURE: ABDOMEN/PELVIS W IV CONT ONLY 09/11/2024 REASON FOR EXAM: EPIGASTRIC ABDOMINAL PAIN TECHNIQUE: ABDOMEN/PELVIS W IV CONT ONLY Coronal and Sagittal reconstruction series were provided. CONTRAST: Isovue 370 VOLUME: 90 mL One or more dose reduction techniques were used (e.g., Automated exposure control, adjustment of the mA and/or kV according to patient size, use of iterative reconstruction technique. RADIATION DOSE SUMMARY: CTDlvol: 32 mGy DLP: 438 mGycm COMPARISON: 08/23/2024 FINDINGS: Basilar atelectasis. Mildly enlarged heart. Hepatomegaly and diffuse hepatic steatosis. Correlate for possible hepatitis. Status post cholecystectomy. Biliary stent in good position. Biliary air, likely iatrogenic. Pancreatic stent. No acute pancreatic pathology. Unremarkable spleen, adrenal glands, and kidneys. No hydronephrosis. Normal bladder. Normal uterus. Distended pelvic veins, correlate for pelvic congestion syndrome. No retroperitoneal or pelvic adenopathy. No free air. Status post appendectomy. Multiple diverticula. No acute large bowel findings. Lumbar spine scoliosis. No acute abdominal wall findings. CT/Abdomen/Pelvis W IV Cont ONLY IMPRESSION: Medical liver disease. Correlate for possible hepatitis. Reading Location: [place] [address]
[2024-09-11 22:39] LABS: AST(SGOT) 23 U/L (<=31); Alanine Aminotransfer ALT/SGPT 17 U/L (<=34); Albumin, Serum 4.4 g/dL (3.5-5.0); Alkaline Phosphatase 163 U/L (35-104); Anion Gap 15 (5-15); BUN 19 mg/dL (4-19); BUN/Creat Ratio 24.2 RATIO (10-20); Bilirubin, Direct 0.50 mg/dL (0.00-0.30); Calcium,Total 9.4 mg/dL (7.6-11.0); Carbon Dioxide 17.8 mmol/L (21.0-32.0); Chloride 105 mmol/L (98-108); Estimated Creatinine Clearance 80.51 ml/min (50-250); Globulin 3.0 g/dL (2.2-4.2); Glucose 132 mg/dL (70-99); Lipase 113 U/L (13-75); Potassium 4.1 mmol/L (3.3-5.1)
[2024-09-11 22:45] LABS: Internal QC Validated? YES +Cl - CLEAR BKGD; Pregnancy, Serum, hCG Quali. NEGATIVE Negative
[2024-09-11 22:46] LABS: Record Kit Lot#, Serum Preg. 947241
--- NOTE | 2024-09-11 23:19 | PCM.HP.STD ---
[facility] - General General Date of Admission: 09/11/24 Date of Service: 09/11/24 Chief Complaint: Abdominal Pain and Nausea. HPI Narrative SANDRA MITCHELL, is a 43 F with a past medical history of former tobacco abuse (quit ~9 months ago), hypertrophic cardiomyopathy; s/p PPM/AICD (2017), history of asthma; on prn albuterol, history of PTX, history of PE; not currently on current anticoagulation, history of endometrial cancer, history of ovarian cancer; s/p Left oophorectomy and chemotherapy (~2014), history of cervical polypectomy, history of breast cancer; s/p Left mastectomy, history of cholecystectomy, history of appendectomy, IBS, GERD with hiatal hernia; on pantoprazole and sucralfate, history of migraine headaches, generalized anxiety; on alprazolam BID, chronic insomnia; on zolpidem, history of recent colonoscopy ~3 months ago, recent admission here from July 20, 2024 to July 24, 2024 for treatment of AE CHF with elevated NT pro-BNP II of 6,468 pg/mL present on admission with corresponding CT evidence of pulmonary vascular congestion complicated by mildly elevated troponin and leukocytosis of 14.3 K with Left-shift of 1% due to possible superimposed pneumonia and recent celiac plexus block performed in an effort to control severe chronic abdominal pain pain about a week ago followed by Dr. Dennison of pain management and Dr. Myles of gastroenterology who presents to [facility] ER complaining of worsening abdominal pain. Ms. Mitchell reports her symptoms began ever since her attempted celiac plexus block with patient stating the procedure did not improve her pain control. She states for the past several days her pain has been increasingly more severe. She states she called her physician and they instructed her to come to the ER for further evaluation and treatment. She admits to nausea but she denies vomiting, diarrhea, constipation, fever, chills, chest pain, shortness of breath, dysuria, hematuria, headache or rash. In the ER she was noted to have a mildly elevated lipase of 113 U per L present on admission with a mild leukocytosis of 13.7 K also present on admission and a corresponding CT scan of the abdomen and pelvis that revealed bibasilar atelectasis with mildly enlarged heart and hepatomegaly with diffuse hepatic steatosis correlate for possible hepatitis. Status postcholecystectomy. Biliary stent in good position. Biliary air likely iatrogenic. Pancreatic stent in place. No acute pancreatic pathology noted. Unremarkable spleen, adrenal glands and kidneys. No hydronephrosis. Normal bladder. Normal uterus. Distended pelvic veins correlate for pelvic congestion syndrome. No retroperitoneal or pelvic adenopathy. No free air. Status post appendectomy. Multiple diverticula. No acute large bowel findings. Lumbar spine scoliosis with no acute abdominal wall findings. Medical liver disease. Correlate for possible hepatitis. In addition to all this patient complained of intractable abdominal pain out of proportion to her physical findings with patient initially refusing morphine and directly asking for hydromorphone when interacting with the ER physician. She was then admitted to the general medical floor under observation status for possible early acute pancreatitis in the setting of acute-on chronic intractable abdominal pain after recent failed celiac plexus block for a stay that expected to be less than 2 midnights. 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 Ovarian cancer GERD (gastroesophageal reflux disease) Insomnia Anxiety Collapsed lung History of blood clots Asthma Breast cancer Pacemaker ICD (implantable cardioverter-defibrillator) in place Hypertrophic cardiomyopathy Home Medications Medication Instructions Recorded Last Taken Type alprazolam 0.5 mg tablet 0.5 mg PO BID ANXIETY 11/13/21 09/11/24 History zolpidem 10 mg tablet 10 mg PO QHS SLEEP 11/13/21 09/10/24 History sucralfate 1 gram tablet (Carafate) 1 g PO BIDCM GERD 07/10/24 09/10/24 History metoprolol succinate 25 mg 25 mg PO QDAY HEART 08/08/24 09/10/24 History tablet,extended release 24 hr pantoprazole 40 mg tablet,delayed 40 mg PO BID GERD 08/11/24 09/10/24 History release spironolactone 25 mg tablet 25 mg PO DAILY WATER PILL 08/20/24 09/10/24 History Allergy/AdvReac Type Severity Reaction Status Date / Time morphine Allergy Mild Hives Verified 09/11/24 17:21 codeine Allergy Hives Verified 09/11/24 17:21 erythromycin base Allergy PT UNSURE Verified 09/11/24 17:21 OF REACTION Fish Containing Products Allergy Other Verified 09/11/24 17:21 levofloxacin Allergy PT UNSURE Verified 09/11/24 17:21 OF REACTION shellfish derived Allergy Other Verified 09/11/24 17:21 tramadol Allergy Hives Verified 09/11/24 17:21 trimethobenzamide (From Allergy Other Verified 09/11/24 17:21 Tigan) gabapentin (From Neurontin) AdvReac Severe Anaphylaxis Verified 09/11/24 17:21 acetaminophen (From Vicodin) AdvReac Other Verified 09/11/24 17:21 hydrocodone (From Vicodin) AdvReac Other Verified 09/11/24 17:21 metoclopramide (From Reglan) AdvReac Other Verified 09/11/24 17:21 Family History Father Heart disease Idiopathic hypertrophic subaortic stenosis, hypertrophic obstructive cardiomyopathy, congestive heart failure Mother Breast cancer DVT (deep venous thrombosis) Sister Hypertrophic obstructive cardiomyopathy heart transplant at age 34 Cancer Brain, breast, and colon Grandfather Heart disease at age 45 Grandmother CVA (cerebral vascular accident) age 43 Surgical History Presence of implantable cardioverter-defibrillator (ICD) History of cardiac catheterization History of oophorectomy History of cervical polypectomy History of colonoscopy History of tubal ligation History of mastectomy History of cholecystectomy Hx of appendectomy Social History household members: spouse and family housing: house current occupational status: employed Smoking Status: Current every day smoker tobacco type: cigarettes how long ago did patient quit smokin months ago alcohol intake: former substance use type: does not use caffeine: Yes ROS ROS Narrative Review of Systems: Constitutional: Patient denies fever or chills. Eyes: Patient denies changes in vision or discharge from eyes. ENT: Patient denies runny nose, sore throat or ear pain. Resp: Patient denies shortness of breath or cough. CV: Patient denies chest pain, palpitations, heart racing or lower extremity edema. GI: Patient admits to intractable abdominal pain with nausea as per HPI. : Patient denies dysuria or hematuria. MSK: Patient denies arthralgias or myalgias. Skin: Patient denies rash, abscess, wounds or jaundice. Psych: Patient is tearful and bitterly complaining of abdominal pain but she denies SI or HI. Neuro: Patient denies headache, paresthesias or focal neurologic deficits. Allergy: Patient denies lip swelling, tongue swelling or urticaria. Hematology: Patient denies easy bleeding or easy bruisability. Endocrinology: Patient denies polyuria, polydipsia, polyphagia or heat/cold intolerance. 14 point ROS otherwise negative except for positives noted above HPI. Vital Signs Vital Signs Vital Signs: 09/11/24 17:19 09/11/24 19:19 09/11/24 21:00 Temperature 96.0 F L Temperature Source Oral Pulse Rate 107 H Respiratory Rate 18 Blood Pressure 149/106 H 155/117 H 127/84 H Blood Pressure Mean 120 129 98 Pulse Ox 99 Oxygen Delivery Method Room Air 09/11/24 22:23 09/11/24 23:00 09/11/24 23:03 Temperature 96 F L 98 F 98 F Temperature Source Temporal Oral Oral Pulse Rate 107 H 68 Respiratory Rate 16 16 Blood Pressure 127/84 H 133/90 H Blood Pressure Mean 98 104 Pulse Ox 99 98 Oxygen Delivery Method Room Air Room Air Weight Weight: 126 lb 1.6 oz Body Mass Index (BMI) 21.6 Physical Exam Const alert, oriented x3, no apparent distress, average body habitus and healthy appearing General Appearance: cooperative HEENT normocephalic, head/scalp atraumatic, hearing grossly normal bilaterally and moist oral mucous membranes Eyes PERRL and EOMs intact bilaterally Neck no lymphadenopathy, supple and no JVD Resp normal respiratory effort, no retractions, no use of accessory muscles and clear to auscultation bilaterally Cardio regular rate and regular rhythm GI normal to inspection, nondistended, normoactive bowel sounds and soft to palpation GI Narrative: Patient's abdomen is diffusely tender with voluntary guarding without rebound or rigidity. Extremity normal to inspection, full ROM and no clubbing, cyanosis or edema Skin Skin Narrative: Patient has no evidence of rash, abscess, wounds or jaundice. Neuro oriented x3, CN's II-XII intact bilaterally, moves all extremities and no focal motor deficits Sensorium / Orientation: awake, alert, oriented to person, oriented to place and oriented to time Speech: speech normal Psych Mood & Affect: depressed and anxious Results Medical Records Data Attestation: I reviewed the patient's medical records Lab / Micro Data Attestation: I reviewed the patient's lab results. 09/11/24 22:00 09/11/24 22:00 Labs: Laboratory Results - last 24 hr 09/11/24 19:39: WBC 14.8 H, RBC 4.60, Hgb 14.1, Hct 43.2, MCV 93.9, MCH 30.7, MCHC 32.6, RDW Std Deviation 49.7 H, RDW Coeff of Damon 14.5, Plt Count 338, MPV 11.1, Immature Gran % (Auto) 0.500, Neut % (Auto) 94.8 H, Lymph % (Auto) 3.5 L, Bartholomew % (Auto) 0.7, Eos % (Auto) 0.1, Baso % (Auto) 0.4, Absolute Neuts (auto) 14.0 H, Absolute Lymphs (auto) 0.51 L, Nucleated RBC % 0, Sodium 137, Potassium 4.2, Chloride 104, Carbon Dioxide 18.9 L, Anion Gap 14, BUN 17, Creatinine 0.84, Estim Creat Clear Calc 73.80, Est GFR (MDRD) Non-Af 88, BUN/Creatinine Ratio 20.4 H, Glucose 107 H, Calcium 9.7, Total Bilirubin 0.87, AST 27, ALT 24, Alkaline Phosphatase 164 H, Total Protein 7.5, Albumin 4.4, Globulin 3.1, Albumin/Globulin Ratio 1.4, Lipase 112 H 09/11/24 21:30: Urine Color Yellow, Urine Clarity Sl. Cloudy, Urine pH 7.0, Ur Specific Mico 1.010, Urine Protein 100 H, Urine Glucose (UA) Normal, Urine Ketones Negative, Urine Occult Blood 50 H, Urine Nitrite Negative, Urine Bilirubin Negative, Urine Urobilinogen 1 H, Ur Leukocyte Esterase Negative, Urine RBC 0-5 SEEN, Urine WBC 0-5 SEEN, Ur Squamous Epith Cells 10-25 SEEN, Urine Bacteria 0 SEEN, Urine Mucus 0 SEEN 09/11/24 22:00: WBC 13.7 H, RBC 4.45, Hgb 13.8, Hct 42.0, MCV 94.4, MCH 31.0, MCHC 32.9, RDW Std Deviation 49.9 H, RDW Coeff of Damon 14.6, Plt Count 349, MPV 10.2, Immature Gran % (Auto) 0.600, Neut % (Auto) 94.7 H, Lymph % (Auto) 3.6 L, Bartholomew % (Auto) 0.7, Eos % (Auto) 0.1, Baso % (Auto) 0.3, Absolute Neuts (auto) 13.0 H, Absolute Lymphs (auto) 0.49 L, Nucleated RBC % 0, Sodium 138, Potassium 4.1, Chloride 105, Carbon Dioxide 17.8 L, Anion Gap 15, BUN 19, Creatinine 0.77, Estim Creat Clear Calc 80.51, Est GFR (MDRD) Non-Af 97, BUN/Creatinine Ratio 24.2 H, Glucose 132 H, Lactic Acid 1.6, Calcium 9.4, Total Bilirubin 0.97, Direct Bilirubin 0.50 H, AST 23, ALT 17, Alkaline Phosphatase 163 H, Total Protein 7.4, Albumin 4.4, Globulin 3.0, Lipase 113 H, Serum , Qual NEGATIVE Imaging Radiology Impression Abdomen/Pelvis CT 09/11/24 22:28 IMPRESSION: Medical liver disease. Correlate for possible hepatitis. Reading Location: [place] [id number] Assessment & Plan Assessment/Plan (1) Intractable abdominal pain: (2) Chronic abdominal pain: (3) History of celiac plexus block: (4) Elevated lipase: (5) Leukocytosis: QUALIFIERS: Leukocytosis type: unspecified Qualified Code(s): D72.829 - Elevated white blood cell count, unspecified (6) History of biliary stent insertion: (7) History of insertion of pancreatic stent: PLAN: Plan 1. Intractable [id number] abdominal pain after recent failed celiac plexus block - Admit to general medical floor under observation status. Continue IV hydromorphone as needed for severe (level 6-10/10) pain. Give pantoprazole IV twice daily. Finally, we will consult Dr. Myles of gastroenterology to see this patient who is well-known to him for further recommendations with help appreciated in advance. 2. Mildly elevated lipase of 113 U/L present on admission consistent with possible early pancreatitis complicating #1 - Doubt acute pancreatitis. Keep n.p.o. except medications and ice chips with sips and hydrate with NS at 150 cc/h x 2L. Serialize lipase to follow trend. 3. Mild Leukocytosis of 13.7 K also present on admission suspected to be due to acute phase reactant with no signs of infection at this time - check CBC in AM to follow trend. 4. History of biliary stent and pancreatic stent with chronic abdominal pain potentially exacerbated by recent celiac plexus block procedure - Noted. 5. Recent admission here from July 20, 2024 to July 24, 2024 for treatment of AE CHF with elevated NT pro-BNP II of 6,468 pg/mL present on admission with corresponding CT evidence of pulmonary vascular congestion complicated by mildly elevated troponin and leukocytosis of 14.3 K with left shift of 1% due to possible superimposed pneumonia - Noted. 6. History of PE; not currently on current anticoagulation - Noted. 7. Former tobacco abuse (quit ~9 months ago) - Noted. 8. History of asthma; on prn albuterol - Stable with no current evidence of acute flare. Give nebulizers prn. 9. History of PTX - Noted with no evidence of recurrence at this time. 10. History of endometrial cancer - Noted. 11. History of ovarian cancer; s/p Left oophorectomy - Noted. 12. History of cervical polypectomy - Noted. 13. History of breast cancer; s/p Left mastectomy - Noted with patient currently in remission. 14. History of cholecystectomy - Noted. 14. History of appendectomy - Noted. 16. History of migraine headaches - Noted with no complaints related to this issue at this time. 17. Generalized anxiety; on alprazolam BID - Current therapy to continue. 18. Chronic insomnia; on zolpidem - Resume zolpidem q. HS as before. 19. DVT prophylaxis - Enoxaparin 40 mg sq daily plus SCD's. Total time: Approximately (but not less than) 70 minutes. Charges/Coding Visit Charges OBSV E&M: 00299 Observ/hosp same date L2
--- OUTSIDE RECORDS SUMMARY | 2024-09-11 23:39 | XMS RPT_ITS | CCD ---
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 Dex Wilkinson MD Primary Care Provider Dr. Jose Francisco Santamaria MD Attending Provider Dr. Dex Wilkinson MD Referring Provider Dana CINTRON, Dr. Wallis Attending Provider Dr. Bimal Cortez MD Emergency Provider Dr. Babar Wood DO Emergency Provider [phone] PROVIDER, UNKNOWN Primary Care Unavailable MARVA DAMON Attending Unavailable PROVIDER, UNKNOWN Referring Unavailable PROVIDER, UNKNOWN Primary Care Unavailable PROVIDER, UNKNOWN Admitting Unavailable LUIS MIGUEL VUONG Consulting Unavaila ble PROVIDER, UNKNOWN Attending Unavailable PROVIDER, UNKNOWN Attending Unavailable PROVIDER, UNKNOWN Primary Care Unavailable PROVIDER, UNKNOWN Admitting Unavailable SERGIO WHITE Consulting Unavailable Dr. Babar Wood DO Attending Provider Bárbara Mendez Attending Provider Dr. Nabor Frey DO Attending Provider [phone] Dr. Nabor Frey DO Emergency Provider [phone] Xochitl Cole Attending Provider Greg HAMLIN, Dr. Del Rio Attending Provider Greg HAMLIN, Dr. Del Rio Other Provider Korey HAMLIN, Dr. Gonzalez Emergency Provider de Koby DO, Dr. Beauchamp Admit Provider Unavail able de Okby DO, Dr. Beauchamp Attending Provider Unav ailable [...] Josep CINTRON, Dr. Coronado Other Provider Jana OPHTHALMIC TECHNICIAN APPRENTICE-C, Bogdan Pope Other Provider Xochitl Cole Other Provider Grover Alexis Other Provider Dr. Willian Ovalles DO Attending Provider Dr. Willian Ovalles DO Other Provider Obed CINTRON, Dr. Davison Attending Provider Dr. Willian Colón MD Attending Provider Dr. Mercy Bishop MD Attending Provider Dex Wilkinson MD Primary Care Provider Skye RN, [place]unc[place] Unavailable Unavailable Jaja CINTRON, Dr. Kowalski Primary Care Provider Jaja CINTRON, Dr. Kowalski Referring Provider Rosalio CINTRON, Dr. Felton Attending Provider Umaña DO, Dr. Beauchamp Referring Provider Unav ailable Jaja CINTRON, Dr. Kowalski Primary Care Provider Dana CINTRON, Dr. Wallis Attending Provider Dana CINTRON, Dr. Wallis Emergency Provider Israel HAMLIN, Dr. Eckert Attending Provider Israel HAMLIN, Dr. Eckert Emergency Provider Jaja CINTRON, Dr. Kowalski Referring Provider Bárbara Mendez Attending Provider Tk HAMLIN, Dr. Tomlin Attending Provider Tk HAMLIN, Dr. Tomlin Emergency Provider Dr. Jose Francisco Santamaria MD Attending Provider Xochitl Cole Attending Provider Greg HAMLIN, Dr. Del Rio Attending Provider Greg HAMLIN, Dr. Del Rio Other Provider Korey [...] Provider Josep CINTRON, Dr. Coronado Other Provider [facility] OPHTHALMIC TECHNICIAN APPRENTICE-C, Bogdan H Other Provider Xochitl Cole Other Provider Grover Alexis Other Provider Dr. Willian Ovalles DO Attending Provider Dr. Willian Ovalles DO Other Provider Obed CINTRON, Dr. Davison Attending Provider Eldon CINTRON, Dr. Dorsey Attending Provider Dr. Sergio Umaña DO Referring Provider Elvirav Dr. Mercy Torres MD Attending Provider Dr. Quang Myles DO Referring Provider Dr. Gage Sharma DO Emergency Provider Dex Wilkinson MD Primary Care Provider Edith HAMLIN, Dr. Almonte Attending Provider Dr. Simona Fernandez DO Emergency Provider Dr. Lopez Larios DO Admit Provider Dr. Lopez Larios DO Attending Provider Deanna CINTRON, Dr. Gallo Other Provider Dr. Lopez Larios DO Other Provider Ileana CINTRON, Dr. Taylor Roque Attending Provider Ileana CINTRON, Dr. Taylor Roque Other Provider [facility] Referring Unavail able DEX WILKINSON Primary Care Unavailable CASE FONSECA Attending Unavailable CASE FONSECA Admitting Unavailable RADU KAY Attending Unavailable WILKINSON, DEX B Primary Care Unavailable Evita'ARNIERADU YOST Referring Unavailable WILKINSON, DEX B Primary Care Unavailable Ileana CINTRON, Dr. Taylor Roque Other Provider Ileana CINTRON, Dr. Taylor Roque Referring Provider Wilkinson, Dex Referring Unavailable Friend, Quang Attending Unavailable Wilkinson, Dex Primary Care Unavailable Nabor Frey Attending Unavailable Wilkinson, Dex Primary Care Unavailable Babar Wood Attending Unavailable Wilkinson, Dex Primary Care Unavailable Mercy Bishop Attending Unavailable Mercy Bishop Referring Unavailable Wilkinson, Dex Primary Care Unavailable Sergio Umaña Admitting Unavailable Filemon Subramanian Consulting Unavailable ObedSaman Attending Unavailable Wilkinson, Dex Primary Care Unavailable Chetan Grant Consulting Unavailable Ramirez Clayd Consulting Unavailable Augustin Potts Consulting Unavailable Don Victoria Consulting Unavailable Rosalio, [place] Consulting Unavailable Cleo Huerta Consulting Unavailable Mercy Bishop Consulting Unavailable Sarita Flores Consulting Unavailfanta recio Satkarthik, Vincent Consulting Unavailable [place], Cliff Consulting Unavailable Jana OPHTHALMIC TECHNICIAN APPRENTICE, Bogdan Pope Consulting Unavailable Steffen PA, Xochitl Min Consulting Unavail able Grover Guerra Consulting Unavailable Sergio Umaña Consulting Unavailable Willian Ovalles Consulting Unavailable Wilkinson, Dex Primary Care Unavailable Friend, Quang Attending Unavailable Wilkinson, Dex Referring Unavailable Lopez Larios Consulting Unavailable Wilkinson, Dex Primary Care Unavailable Koram, Taylor Mya Referring Unavailable Lopez Larios Admitting Unavailable Friend, Quang Attending Unavailable Koram, Taylor Mya Consulting Unavailable Wilkinson, Dex Primary Care Unavailable Friend, Quang Attending Unavailable Friend, Quang Referring Unavailable Bimal Cortez Attending Unavailable Wilkinson, Dex Primary Care Unavailable Rosalio, Jose Francisco Attending Unavailable Wilkinson, Dex Primary Care Unavailable Wilkinson, Dex Referring Unavailable Rosalio, Jose Francisco Attending Unavailable Wilkinson, Dex Primary Care Unavailable Rosalio, Jose Francisco Attending Unavailable Wilkinson, Dex Primary Care Unavailable Wilkinson, Dex Referring Unavailable Bárbara Ureña Attending Unavailable Wilkinson, Dex Primary Care Unavailable Wilkinson, Dex Referring Unavailable Rosalio, Jose Francisco Attending Unavailable Wilkinson, Dex Primary Care Unavailable Rosalio, [place] Attending Unavailable Wilkinson, Dex Primary Care Unavailable Andreina Santamarial Attending Unavailable Valier, Dex Primary Care Unavailable Willian Ovalles Attending Unavailable Steffen BUCKLEY, Xochitl Min Attending Unavail able Wilkinson, Dex Referring Unavailable Wilkinson, Dex Primary Care Unavailable Wilkinson, Dex Referring Unavailable RosalioJose Francisco Attending Unavailable Valier, Dex Primary Care Unavailable Wilkinson, Dex Referring Unavailable Bárbara Ureña Attending Unavailable Valier, Dex Primary Care Unavailable Babar Wood Attending Unavailable Wilkinson, Dex Primary Care Unavailable Lopez Larios Consulting Unavailable Taylor Tejeda Attending Unavailable Lopez Larios Admitting Unavailable Wilkinson, Dex Primary Care Unavailable Sergio Umaña Admitting Unavailable Filemon Subramanian Consulting Unavailable Willian Ovalles Attending Unavailable Valier, Dex Primary Care Unavailable Chetan Grant Consulting Unavailable Saman Clay Consulting Unavailable Augustin Potts Consulting Unavailable Don Victoria Consulting Unavailable Rosalio Jose Francisco Consulting Unavailable Cleo Huerta Consulting Unavailable Mercy Bishop Consulting Unavailable Sarita Flores Consulting Unavailfanta e Satti, Vincent Consulting Unavailable [place], Cliff Consulting Unavailable Roof OPHTHALMIC TECHNICIAN APPRENTICE, Bogdan Pope Consulting Unavailable Steffen BUCKLEY, Xochitl Min Consulting Unavail able Grover Guerra Consulting Unavailable Sergio Umaña Consulting Unavailable [facility] Primary Care Unavailable Friend, Quang Attending Unavailable Friend, Quang Referring Unavailable [facility] Primary Care Unavailable Gage Sharma Attending Unavailabl almita Tejeda, Taylor Roque Attending Unavailable Valier, Dex Referring Unavailable FriendQuang Attending Unavailable [facility] Primary Care Unavailable Mercy Bishop Attending Unavailable Sergio Umaña Attending Unavailable Lopez Larios Attending Unavailable Sergio Umaña Referring Unavailable Willian Colón Attending Unavailable Valier, Dex Primary Care Unavailable Breann Loera Attending Unavailable Wilkinson, Dex Primary Care Unavailable Wilkinson, Dex Referring Unavailable Wilkinson, Dex Primary Care Unavailable Friend, Quang Attending Unavailable Friend, Quang Referring Unavailable [facility] Primary Care Unavailable Friend, Quang Attending Unavailable Friend, Quang Referring Unavailable Friend, Quang Attending Unavailable Friend, Quang Consulting Unavailable [facility] Primary Care Unavailable WilkinsonDex Referring Unavailable Allergies Allergy Classification Reported Allergen(s) Allergy Type Date of Onset Reaction(s) Facility (10 sources) acetaminophen / HYDROcodone; Translations: [HYDROCODONE-ACETAMI NOPHEN] Drug Allergy 01-31-20 07 Shortness of Breath [facility] Repository (11 sources) azithromycin; Translations: [AZITHROMYCIN] Drug Allergy 10-20-19 07 Intolerance, Unknown [facility] Repository (16 sources) cucumber extract; Translations: [CUCUMBER] Drug Allergy 09-03-19 11 Anaphylaxis [facility] Repository (7 sources) FLUoxetine; Translations: [FLUOXETINE HCL] Drug Allergy 11-08-19 14 Other: See Comments [facility] Repository (19 sources) gabapentin; Translations: [GABAPENTIN] Drug Allergy 05-17-19 12 Mental Status Change [facility] Repository (7 sources) levoFLOXacin; Translations: [LEVOFLOXACIN IN D5W] Drug Allergy 04-05-19 14 Swelling, Itching [facility] Repository (4 sources) LORazepam; Translations: [LORAZEPAM] Drug Allergy 07-11-19 11 AOF, [facility] Repository (18 sources) morphine; Translations: [MORPHINE] Drug Allergy 09-15-19 11 [facility] Repository (2 sources) ondansetron; Translations: [ONDANSETRON HCL (PF)] Drug Allergy 11-17-19 12 [facility] Repository (7 sources) Shellfish; Translations: [SHELLFISH] Propensity to adverse reactions to food (disorder) 08-21-19 14 Anaphylaxis [facility] Repository (20 sources) traMADol; Translations: [TRAMADOL] Drug Allergy 12-09-19 15 [facility] Repository (1 source) OTHER; Translations: [OTHER] Propensity to adverse reactions (disorder) 09-03-19 11 [facility] (7 sources) TRIMETHOBENZAMIDE-BE NZOCAINE; Translations: [TRIMETHOBENZAMIDE-B ENZOCAINE] Propensity to adverse reactions to drug (disorder) 09-23-19 13 Anaphylaxis [facility] Repository (7 sources) FISH; Translations: [FISH] Propensity to adverse reactions to food (disorder) 08-21-19 14 Anaphylaxis [facility] Repository (20 sources) Codeine; Translations: [codeine] Drug Allergy 11-03-19 22 Rash [facility] (17 sources) Erythromycin Drug Allergy 11-03-19 PT UNSURE OF REACTION [facility] (1 source) Penicillins Allergy to substance 11-03-19 PT UNSURE OF REACTION [facility] Work Phone: (15 sources) levoFLOXacin Drug Allergy 12-17-19 PT UNSURE OF REACTION [facility] (11 sources) Acetaminophen Drug Allergy 07-02-19 Other [facility] (11 sources) HYDROcodone Drug Allergy 07-02-19 Other [facility] (11 sources) Metoclopramide Drug Allergy 07-02-19 Other [facility] (15 sources) Shellfish; Translations: [SHELLFISH DERIVED] Allergy to substance 07-02-19 Anaphylaxis [facility] (14 sources) trimethobenzamide; Translations: [TRIMETHOBENZAMIDE] Drug Allergy 07-02-19 Anaphylaxis [facility] (11 sources) Fish Containing Products Allergy to substance 07-02-19 Other [facility] (3 sources) FLUoxetine; Translations: [FLUOXETINE] Drug Allergy 08-16-19 [facility] Work Phone: (1 source) Acetaminophen Drug Allergy 08-21-19 [facility] Repository (1 source) Codeine Drug Allergy 08-21-19 [facility] Repository (1 source) HYDROcodone Drug Allergy 08-21-19 [facility] Repository (1 source) levoFLOXacin Drug Allergy 08-21-19 [facility] Repository (1 source) Metoclopramide Drug Allergy 08-21-19 [facility] Repository (1 source) trimethobenzamide Drug Allergy 08-21-19 [facility] Repository (1 source) Fish Containing Products Drug allergy (disorder) 08-21-19 [facility] Repository (1 source) erythromycin base Drug allergy (disorder) 08-21-19 [facility] Repository Medications Current Medications Medication Drug Class(es) [...] 12:00am dicyclomine hydrochloride 10 mg oral capsule (16 sources) Anticholinergic Start: 07-08-2024 take 1 capsule by mouth three times daily before mealtime dicyclomine (BENTYL) 10 mg capsule Take 1 capsule by mouth three times a day before meals. 90 capsule 07/08/2024 Active Start: 07-03-2024 End: 08-20-2024 empagliflozin 10 mg oral tablet (2 sources) Sodium-Glucose Cotransporter 2 Inhibitor Start: 08-15-2024 End: [...] 2021 12:00am meloxicam 15 mg oral tablet (9 sources) Nonsteroidal Anti-inflammatory Drug Start: 08-10-2024 24 hr metoprolol succinate 25 mg extended release oral tablet (11 sources) beta-Adrenergic Krishan Start: 07-27-2024 pantoprazole 40 mg delayed release oral tablet (20 sources) Proton Pump Inhibitor Start: 08-11-2024 Start: [...] psyllium 3400 mg powder for oral suspension (6 sources) Start: 07-08-2024 take 1 dose by mouth twice daily psyllium (METAMUCIL) 3.4 gram packet Take 1 packet by mouth two times a day. 60 packet 5 07/08/2024 Active take 1 dose by mouth once daily psyllium (Metamucil) 3.4 gram packet Take 1 packet by mouth once daily. Active 72 hr scopolamine 0.0139 mg/ hr transdermal system (11 sources) Anticholinergic Start: 08-20-2024 Start: 08-08-2024 End: 08-11-2024 spironolactone 25 mg oral ta blet (6 sources) Aldosterone Antagonist Start: 08-15-2024 End: 08-15-2025 sucralfate 1000 mg oral tabl et (16 sources) Aluminum Complex Start: 07-08-2024 zolpidem tartrate 10 mg oral tablet (20 sources) gamma-Aminobutyric Acid-ergic Agonist Start: 11-13-2021 Completed/Discontinued [...] December 26, 2022 August 16, 2023 11:22am [id number] 200 actuat albuter ol 0.09 mg/actuat metered dose inhaler (17 sources) beta2-Adrenergic Agonist Start: 07-26-2023 End: 08-11-2024 [...] / clavula mayra 125 mg oral tablet (12 sources) Penicillin-class Antibacterial Start: 11-02-2023 End: 05-12-2024 Start: 11-02-2023 End: 05-12-2024 Amoxicillin-Pot Clavulanate 875-125 mg tablet Discontinued 1 {tbl} PO TWICE A DAY 24 09November 02, 2023 12:00am May 12, 2024 1:11am Start: 11-13-2021 take 1 tablet by khris th every twelve hours Amoxicillin-Pot Clavulanate Active 1 TABLET PO Q12H November 13, 2021 12:00am Benzocaine (1 source) Standardized Chemical Allergen Start: 07-25-2024 End: 07-25-2024 TOPICAL, X (OR/PROCEDURE) PRN, Starting on Tue07/25/24 at 1530, Until Tue07/25/24 at 1530, Intraprocedure celecoxib 200 mg oral capsule (14 sources) Nonsteroidal Anti-inflammatory Drug Start: 08-08-2024 End: 08-11-2024 1 ml fentaNYL 0.05 mg/ml injection (1 source) Opioid Agonist Start: 07-25-2024 End: 07-25-2024 INTRAVENOUS, X (OR/PROCEDURE) PRN, Starting on Tue07/25/24 at 1535, Until Tue07/25/24 at 1553, Intraprocedure furosemide 20 mg oral tablet (20 sources) Loop Diuretic Start: 07-26-2023 End: 11-01-2023 Start: 07-26-2023 End: 08-16-2023 take 1 tablet by mouth once daily Furosemide (Lasix) 20 mg tablet Discontinued 20 mg PO DAILY July 26, 2023 12:00am August 16, 2023 11:23am ketorolac tromethamine 10 mg oral tablet (10 sources) Nonsteroidal Anti-inflammatory Drug, Cyclooxygenase Inhibitor Start: 07-03-2024 End: 07-20-2024 lidocaine hydrochloride 0.02 mg/mg topical gel (1 source) Antiarrhythmic, Amide Local Anesthetic Start: 07-25-2024 End: 07-25-2024 X (OR/PROCEDURE) PRN, Starting on Tue07/25/24 at 1530, Until Tue07/25/24 at 1530, Intraprocedure methscopolamine bromide 5 mg oral tablet (12 sources) Anticholinergic Start: 10-26-2023 End: 07-10-2024 5 ml midazolam 1 mg/ml injection (1 source) Benzodiazepine Start: 07-25-2024 End: 07-25-2024 INTRAVENOUS, X (OR/PROCEDURE) PRN, Starting on Tue07/25/24 at 1535, Until Tue07/25/24 at 1553, Intraprocedure ondansetron 4 mg disintegrating oral tablet (20 sources) Serotonin-3 Receptor Antagonist Start: 12-26-2022 End: 08-16-2023 Start: 12-26-2022 End: 08-16-2023 take 1 tablet by mouth three times daily as needed for nausea and vomiting Ondansetron 4 mg tablet,disintegrating Discontinued 4 mg PO THREE TIMES A DAY as needed for nausea and vomiting December 26, 2022 1:35am August 16, 2023 11:22am oxyCODONE hydrochloride 10 m g oral tablet (5 sources) Opioid Agonist Start: 08-28-2024 End: 09-04-2024 Start: 08-24-2024 predniSONE 20 mg oral tablet (20 sources) Start: 07-20-2024 End: 08-11-2024 Start: 07-01-2024 End: 07-10-2024 Start: 07-01-2024 End: 07-10-2024 take 2 tablets by mouth once daily Prednisone 20 mg tablet Discontinued 40 mg PO DAILY 12 16July 01, 2024 12:00am July 10, 2024 11:56am rimegepant 75 mg disintegrat ing oral tablet (11 sources) Start: 07-26-2023 End: 08-16-2023 Start: 07-26-2023 End: 08-16-2023 take 1 tablet by mouth once as needed Rimegepant (Nurtec Odt) 75 mg tablet,disintegrating Discontinued 75 mg PO ONCE as needed July 26, 2023 12:00am August 16, 2023 11:23am as a single dose sulfamethoxazole 800 mg / trimethoprim 160 mg oral tablet (18 sources) Dihydrofolate Reductase Inhibitor Antibacterial, Sulfonamide Antimicrobial Start: 08-11-2024 End: 08-11-2024 Start: 05-12-2024 End: 07-10-2024 Start: 05-12-2024 End: 07-10-2024 Sulfamethoxazole-Trimethopri m 800-160 mg tablet Discontinued 1 {tbl} PO TWICE A DAY May 12, 2024 1:00am July 10, 2024 11:56am traZODone hydrochloride 50 m g oral tablet (19 sources) Serotonin Reuptake Inhibitor Start: 08-11-2024 End: 08-11-2024 Start: 07-26-2023 End: 07-10-2024 Start: 07-26-2023 End: 07-10-2024 take 1 tablet by mouth at bedtime Trazodone 50 mg tablet Discontinued 50 mg PO AT BEDTIME July 26, 2023 12:00am July 10, 2024 11:56am vortioxetine 10 mg oral tabl et (13 sources) Start: 08-11-2024 End: 08-11-2024 Problems Active Problems Problem Classification Problem Date Documented Da te Episodic/Chronic Abdominal pain (20 sources) Unspecified abdominal pain; Translations: [Epigastric pain] Onset: 4 07-03-2024 Episodic Administrative/social admission (1 source) Persons encountering health services in other specified circumstances; Translations: [Encounter for incision and drainage procedure] Onset: Episodic Anxiety disorders (16 sources) Anxiety; Translations: [Anxiety disorder, unspecified] Onset: 9 07-26-2023 Chronic Comment on above: ON MED Asthma (15 sources) Asthma; Translations: [Unspecified asthma, uncomplicated] Resolved: 5 07-26-2023 Chronic Comment on above: PRN INHALER Biliary tract disease (4 sources) Common bile duct calculus; Translations: [Calculus of bile duct without cholangitis or cholecystitis without obstruction] Onset: 5 08-24-2024 Episodic Cancer of breast (9 sources) History of [...] on above: Med[employer]onic Visia AF M RI [id number] 10/29/2016[employer]onic [id number] right ventricular lead Congestive heart [...] Resolved: 8 11-13-2021 Episodic E Codes: Fall (14 sources) Unspecified fall due to ice and snow, initial encounter; Translations: [Fall due to slipping on ice or snow] 03-17-2022 Episodic Esophageal disorders (20 sources) Gastroesophageal reflux disease; Translations: [Gastro-esophageal reflux disease without esophagitis] Onset: 8 07-26-2023 Chronic Essential hypertension (19 sources) Hypertensive disorder; Translations: [Essential (primary) hypertension] Onset: 5 07-23-2024 Chronic Gastritis and duodenitis (19 sources) Acute hemorrhagic gastritis; Translations: [Gastritis, unspecified, with bleeding] Onset: 5 07-23-2024 Episodic Gastroduodenal ulcer (except hemorrhage) (4 sources) Gastric ulcer; Translations: [Gastric ulcer, unspecified as acute or chronic, without hemorrhage or perforation] Onset: Chronic Headache; including migraine (15 sources) Migraine; Translations: [Migraine, unspecified, not intractable, without status migrainosus] 12-25-2021 Chronic Nausea and vomiting (20 sources) Nausea with vomiting, unspecified; Translations: [Nausea and vomiting] Onset: 2 Resolved: 5 07-21-2024 Episodic Noninfectious gastroenteritis (20 sources) Inflammatory bowel disease; Translations: [Noninfective gastroenteritis [...] encounter] Onset: 5 05-18-2024 Episodic Other aftercare (15 sources) Long-term current use of 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; Translations: [USP (current) use of 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s] Onset: 5 07-26-2023 Episodic Other aftercare (1 source) Patient encounter status; Translations: [Encounter for therapeutic drug level monitoring] Onset: 5 07-26-2024 Episodic Other aftercare (1 source) interactive media designer (current) use of 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s; Translations: [Current use of barn manager anticoagulation] Onset: Episodic Other and ill-defined heart disease (1 source) Hypertrophic cardiomegaly ; Translations: [Cardiomegaly] 08-15-2024 Chronic Other and ill-defined heart disease (2 sources) Cardiomegaly; Translations: [Cardiomegaly] Onset: Chronic Other circulatory disease (18 sources) History of cardiomyopathy; Translations: [Personal history of other diseases of the circulatory system] 07-21-2024 Episodic Other circulatory disease (1 source) Personal history of other diseases of the circulatory system; Translations: [Personal history of other diseases of the circulatory system] Onset: Episodic Other gastrointestinal disorders (1 source) Irritable bowel syndrome without diarrhea; Translations: [Irritable bowel syndrome, unspecified] Onset: Chronic Other gastrointestinal disorders (19 sources) Ascites; Translations: [Other ascites] Onset: 5 07-04-2023 Episodic Other gastrointestinal disorders (14 sources) Diarrhea; Translations: [Diarrhea, unspecified] 08-08-2024 Episodic Other liver diseases (1 source) Other specified inflammatory liver diseases; Translations: [Other specified inflammatory liver diseases] Onset: Chronic Other liver diseases (4 sources) Large liver; Translations: [Hepatomegaly, not elsewhere classified] Onset: 5 07-05-2024 Episodic Other liver diseases (6 sources) Elevated liver enzymes level; Translations: [Abnormal levels of other serum enzymes] 08-20-2024 Episodic Other liver diseases (1 source) Abnormal levels of other serum enzymes; Translations: [Abnormal levels of other serum enzymes] Onset: Episodic Other screening for suspected conditions (not mental disorders or infectious disease) (4 sources) Abnormal findings on diagnostic imaging of other specified body structures; Translations: [Nonspecific (abnormal) findings on radiological and other examination of other intrathoracic organs] Onset: 5 05-15-2024 Chronic Other screening for suspected conditions (not mental disorders or infectious disease) (20 sources) Raised cardiac enzyme or marker; Translations: [Other specified abnormal findings of blood chemistry] Onset: 5 07-21-2024 Episodic Pancreatic disorders (not diabetes) (7 sources) Pancreatic duct disorder; Translations: [Other specified diseases of pancreas] Onset: 5 08-20-2024 Episodic Pia-; endo-; and myocarditis; cardiomyopathy (except that caused by tuberculosis or sexually transmitted disease) (20 sources) Hypertrophic obstructive cardiomyopathy; 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 hypertrophic cardiomyopathy] Onset: 2 12-26-2022 Chronic Pia-; endo-; and myocarditis; cardiomyopathy (except that caused by tuberculosis or sexually transmitted disease) (20 sources) Vegetation of heart; Translations: [Acute and subacute infective endocarditis] Onset: 5 07-22-2024 Episodic Phlebitis; thrombophlebitis and thromboembolism (5 sources) H/O: Deep vein thrombosis; Translations: [Personal history of other venous thrombosis and embolism] Onset: 5 07-24-2024 Episodic Pleurisy; pneumothorax; pulmonary collapse (12 sources) Pleural effusion; Translations: [Pleural effusion, not elsewhere classified] 07-04-2023 Episodic Pulmonary heart disease (20 sources) Pulmonary hypertension, unspecified; Translations: [Severe pulmonary hypertension] Onset: 5 07-21-2024 Chronic Pulmonary heart disease (8 sources) Pulmonary thromboembolism; Translations: [Other pulmonary embolism without acute cor pulmonale] Onset: 7 01-22-2017 Episodic Residual codes; unclassified (15 sources) Insomnia; Translations: [Insomnia, unspecified] Onset: 5 [...] Insomnia, unspecified; Translations: [Insomnia, unspecified type] Onset: Episodic Skin and subcutaneous tissue infections (20 sources) Abscess of lower leg; Translations: [Cutaneous abscess of left lower limb] Onset: 5 05-20-2024 Episodic Sprains and strains (14 sources) Sprain of knee; Translations: [Sprain of [...] Onset: 10-31-2013 Resolved: 05-23-2014 05-23-2014 Episodic Other injuries and conditions due to external causes (1 source) Unspecified injury of left lower leg, initial encounter; Translations: [Unspecified injury of left lower leg, initial encounter] Onset: 05-23-2024 Episodic Other non-traumatic joint disorders (4 sources) [...] Test Name Value Interpretation Reference Range Facility CBC W/Diff, Automatedon - Absolute Neut Normal 2.0-7.7 [facility] Comment on above: Result Comment: Canc elled via OM: Order cancelled - Patient discharged Performed By: #### L 100.0100 ####[facility] [address] [place], [address] HCT Normal 37-47 [facility] Comment on above: Result Comment: Canc elled via OM: Order cancelled - Patient discharged Performed By: #### L 100.0100 ####[facility] [address] [place], [address] HGB Normal 12.0-15.0 [facility] Comment on above: Result Comment: Canc elled via OM: Order cancelled - Patient discharged Performed By: #### L 100.0100 ####[facility] [address] [place], [address] MCH Normal 27.0-32.0 [facility] Comment on above: Result Comment: Canc elled via OM: Order cancelled - Patient discharged Performed By: #### L 100.0100 ####[facility] [address] [place], [address] MCHC Normal 32-36 [facility] Comment on above: Result Comment: Canc elled via OM: Order cancelled - Patient discharged Performed By: #### L 100.0100 ####[facility] [address] [place], [address] MCV Normal 81-99 [facility] Comment on above: Result Comment: Canc elled via OM: Order cancelled - Patient discharged Performed By: #### L 100.0100 ####[facility] [address] [place], [address] NEUT% Normal 47-70 [facility] Comment on above: Result Comment: Canc elled via OM: Order cancelled - Patient discharged Performed By: #### L 100.0100 ####[facility] [address] [place], [address] PLT Normal 150-450 [facility] Comment on above: Result Comment: Canc elled via OM: Order cancelled - Patient discharged Performed By: #### L 100.0100 ####[facility] [address] [place], [address] RBC Normal 4.2-5.4 [facility] Comment on above: Result Comment: Canc elled via OM: Order cancelled - Patient discharged Performed By: #### L 100.0100 ####[facility] [address] [place], [address] RDW CV Normal 11.6-14.6 [facility] Comment on above: Result Comment: Canc elled via OM: Order cancelled - Patient discharged Performed By: #### L 100.0100 ####[facility] [address] [place], [address] RDW SD Normal 35.1-43.9 [facility] Comment on above: Result Comment: Canc elled via OM: Order cancelled - Patient discharged Performed By: #### L 100.0100 ####[facility] [address] [place], [address] WBC Normal 4.4-11.0 [facility] Comment on above: Result Comment: Canc elled via OM: Order cancelled - Patient discharged Performed By: #### L 100.0100 ####[facility] [address] [place], [address] CBC W/Diff, Automatedon - Absolute Neut Normal 2.0-7.7 [facility] Comment on above: Result Comment: Canc elled via OM: Order cancelled - Patient discharged Performed By: #### L 100.0100 ####[facility] [address] [place], [address] HCT Normal 37-47 [facility] Comment on above: Result Comment: Canc elled via OM: Order cancelled - Patient discharged Performed By: #### L 100.0100 ####[facility] [address] [place], [address] HGB Normal 12.0-15.0 [facility] Comment on above: Result Comment: Canc elled via OM: Order cancelled - Patient discharged Performed By: #### L 100.0100 ####[facility] [address] [place], [address] MCH Normal 27.0-32.0 [facility] Comment on above: Result Comment: Canc elled via OM: Order cancelled - Patient discharged Performed By: #### L 100.0100 ####[facility] [address] [place], [address] MCHC Normal 32-36 [facility] Comment on above: Result Comment: Canc elled via OM: Order cancelled - Patient discharged Performed By: #### L 100.0100 ####[facility] [address] [place], [address] MCV Normal 81-99 [facility] Comment on above: Result Comment: Canc elled via OM: Order cancelled - Patient discharged Performed By: #### L 100.0100 ####[facility] [address] [place], [address] NEUT% Normal 47-70 [facility] Comment on above: Result Comment: Canc elled via OM: Order cancelled - Patient discharged Performed By: #### L 100.0100 ####[facility] [address] [place], [address] PLT Normal 150-450 [facility] Comment on above: Result Comment: Canc elled via OM: Order cancelled - Patient discharged Performed By: #### L 100.0100 ####[facility] [address] [place], [address] RBC Normal 4.2-5.4 [facility] Comment on above: Result Comment: Canc elled via OM: Order cancelled - Patient discharged Performed By: #### L 100.0100 ####[facility] [address] [place], [address] RDW CV Normal 11.6-14.6 [facility] Comment on above: Result Comment: Canc elled via OM: Order cancelled - Patient discharged Performed By: #### L 100.0100 ####[facility] [address] [place], [address] RDW SD Normal 35.1-43.9 [facility] Comment on above: Result Comment: Canc elled via OM: Order cancelled - Patient discharged Performed By: #### L 100.0100 ####[facility] [address] [place], [address] WBC Normal 4.4-11.0 [facility] Comment on above: Result Comment: Canc elled via OM: Order cancelled - Patient discharged Performed By: #### L 100.0100 ####[facility] [address] [place], [address] Gastric Emptying Studyon -2024 Gastric Emptying Study Normal [facility] CBC W/Diff, Automatedon 08-12 Absolute Neut Normal 2.0-7.7 [facility] Comment on above: Result Comment: Canc elled via OM: Order cancelled - Patient discharged Performed By: #### L 100.0100 ####[facility] [address] [place], [address] HCT Normal 37-47 [facility] Comment on above: Result Comment: Canc elled via OM: Order cancelled - Patient discharged Performed By: #### L 100.0100 ####[facility] [address] [place], [address] HGB Normal 12.0-15.0 [facility] Comment on above: Result Comment: Canc elled via OM: Order cancelled - Patient discharged Performed By: #### L 100.0100 ####[facility] [address] [place], [address] MCH Normal 27.0-32.0 [facility] Comment on above: Result Comment: Canc elled via OM: Order cancelled - Patient discharged Performed By: #### L 100.0100 ####[facility] [address] [place], [address] MCHC Normal 32-36 [facility] Comment on above: Result Comment: Canc elled via OM: Order cancelled - Patient discharged Performed By: #### L 100.0100 ####[facility] [address] [place], [address] MCV Normal 81-99 [facility] Comment on above: Result Comment: Canc elled via OM: Order cancelled - Patient discharged Performed By: #### L 100.0100 ####[facility] [address] [place], [address] NEUT% Normal 47-70 [facility] Comment on above: Result Comment: Canc elled via OM: Order cancelled - Patient discharged Performed By: #### L 100.0100 ####[facility] [address] [place], [address] PLT Normal 150-450 [facility] Comment on above: Result Comment: Canc elled via OM: Order cancelled - Patient discharged Performed By: #### L 100.0100 ####[facility] [address] [place], [address] RBC Normal 4.2-5.4 [facility] Comment on above: Result Comment: Canc elled via OM: Order cancelled - Patient discharged Performed By: #### L 100.0100 ####[facility] [address] [place], [address] RDW CV Normal 11.6-14.6 [facility] Comment on above: Result Comment: Canc elled via OM: Order cancelled - Patient discharged Performed By: #### L 100.0100 ####[facility] [address] [place], [address] RDW SD Normal 35.1-43.9 [facility] Comment on above: Result Comment: Canc elled via OM: Order cancelled - Patient discharged Performed By: #### L 100.0100 ####[facility] [address] [place], [address] WBC Normal 4.4-11.0 [facility] Comment on above: Result Comment: Canc elled via OM: Order cancelled - Patient discharged Performed By: #### L 100.0100 ####[facility] [address] [place], [address] MRCP Abdomen without Contras ton 08-27-2024 MRCP Abdomen without Contrast Normal [facility] CBC W/Diff, Automatedon - Absolute Neut Normal 2.0-7.7 [facility] Comment on above: Result Comment: Canc elled via OM: Order cancelled - Patient discharged Performed By: #### L 100.0100, L500.4050 ####[facility] [address] [place], [address] HCT Normal 37-47 [facility] Comment on above: Result Comment: Canc elled via OM: Order cancelled - Patient discharged Performed By: #### L 100.0100, L500.4050 ####[facility] [address] [place], [address] HGB Normal 12.0-15.0 [facility] Comment on above: Result Comment: Canc elled via OM: Order cancelled - Patient discharged Performed By: #### L 100.0100, L500.4050 ####[facility] [address] [place], [address] MCH Normal 27.0-32.0 [facility] Comment on above: Result Comment: Canc elled via OM: Order cancelled - Patient discharged Performed By: #### L 100.0100, L500.4050 ####[facility] [address] [place], [address] MCHC Normal 32-36 [facility] Comment on above: Result Comment: Canc elled via OM: Order cancelled - Patient discharged Performed By: #### L 100.0100, L500.4050 ####[facility] [address] [place], [address] MCV Normal 81-99 [facility] Comment on above: Result Comment: Canc elled via OM: Order cancelled - Patient discharged Performed By: #### L 100.0100, L500.4050 ####[facility] [address] [place], [address] NEUT% Normal 47-70 [facility] Comment on above: Result Comment: Canc elled via OM: Order cancelled - Patient discharged Performed By: #### L 100.0100, L500.4050 ####[facility] [address] [place], [address] PLT Normal 150-450 [facility] Comment on above: Result Comment: Canc elled via OM: Order cancelled - Patient discharged Performed By: #### L 100.0100, L500.4050 ####[facility] [address] [place], [address] RBC Normal 4.2-5.4 [facility] Comment on above: Result Comment: Canc elled via OM: Order cancelled - Patient discharged Performed By: #### L 100.0100, L500.4050 ####[facility] [address] [place], [address] RDW CV Normal 11.6-14.6 [facility] Comment on above: Result Comment: Canc elled via OM: Order cancelled - Patient discharged Performed By: #### L 100.0100, L500.4050 ####[facility] [address] [place], [address] RDW SD Normal 35.1-43.9 [facility] Comment on above: Result Comment: Canc elled via OM: Order cancelled - Patient discharged Performed By: #### L 100.0100, L500.4050 ####[facility] [address] [place], [address] WBC Normal 4.4-11.0 [facility] Comment on above: Result Comment: Canc elled via OM: Order cancelled - Patient discharged Performed By: #### L 100.0100, L500.4050 ####[facility] [address] [place], [address] Comprehensive Metabolic Prof ilon 08-26-2024 ALB Normal 3.5-5.0 [facility] Comment on above: Result Comment: Canc elled via OM: Order cancelled - Patient discharged Performed By: #### L 100.0100, L500.4050 ####[facility] [address] [place], [address] ALK PHOS Normal 35-104 [facility] Comment on above: Result Comment: Canc elled via OM: Order cancelled - Patient discharged Performed By: #### L 100.0100, L500.4050 ####[facility] [address] [place], [address] ALT Normal <=34 [facility] Comment on above: Result Comment: Canc elled via OM: Order cancelled - Patient discharged Performed By: #### L 100.0100, L500.4050 ####[facility] [address] [place], [address] AST Normal <=31 [facility] Comment on above: Result Comment: Canc elled via OM: Order cancelled - Patient discharged Performed By: #### L 100.0100, L500.4050 ####[facility] [address] [place], [address] BUN Normal 4-19 [facility] Comment on above: Result Comment: Canc elled via OM: Order cancelled - Patient discharged Performed By: #### L 100.0100, L500.4050 ####[facility] [address] [place], [address] BUN/CRE Normal 10-20 [facility] Comment on above: Result Comment: Canc elled via OM: Order cancelled - Patient discharged Performed By: #### L 100.0100, L500.4050 ####[facility] [address] [place], [address] Calcium Normal 7.6-11.0 [facility] Comment on above: Result Comment: Canc elled via OM: Order cancelled - Patient discharged Performed By: #### L 100.0100, L500.4050 ####[facility] [address] [place], [address] CL Normal 98-108 [facility] Comment on above: Result Comment: Canc elled via OM: Order cancelled - Patient discharged Performed By: #### L 100.0100, L500.4050 ####[facility] [address] [place], [address] CO2 Normal 21.0-32.0 [facility] Comment on above: Result Comment: Canc elled via OM: Order cancelled - Patient discharged Performed By: #### L 100.0100, L500.4050 ####[facility] [address] [place], [address] CREAT,SERUM Normal 0.70-1.20 [facility] Comment on above: Result Comment: Canc elled via OM: Order cancelled - Patient discharged Performed By: #### L 100.0100, L500.4050 ####[facility] [address] [place], [address] eGFR Normal >60 [facility] Comment on above: Result Comment: Canc elled via OM: Order cancelled - Patient discharged Performed By: #### L 100.0100, L500.4050 ####[facility] [address] [place], [address] GAP Normal 5-15 [facility] Comment on above: Result Comment: Canc elled via OM: Order cancelled - Patient discharged Performed By: #### L 100.0100, L500.4050 ####[facility] [address] [place], [address] GLU Normal 70-99 [facility] Comment on above: Result Comment: Canc elled via OM: Order cancelled - Patient discharged Performed By: #### L 100.0100, L500.4050 ####[facility] [address] [place], [address] Potassium Normal 3.3-5.1 [facility] Comment on above: Result Comment: Canc elled via OM: Order cancelled - Patient discharged Performed By: #### L 100.0100, L500.4050 ####[facility] [address] [place], [address] T BILI Normal 0.00-1.30 [facility] Comment on above: Result Comment: Canc elled via OM: Order cancelled - Patient discharged Performed By: #### L 100.0100, L500.4050 ####[facility] [address] [place], [address] T PROT Normal 5.9-8.4 [facility] Comment on above: Result Comment: Canc elled via OM: Order cancelled - Patient discharged Performed By: #### L 100.0100, L500.4050 ####[facility] [address] [place], [address] Comprehensive Metabolic Profil Normal 133-145 [facility] Comment on above: Result Comment: Canc elled via OM: Order cancelled - Patient discharged Performed By: #### L 100.0100, L500.4050 ####[facility] [address] [place], [address] CBC W/Diff, Automatedon 06-1 Absolute Neut Normal 2.0-7.7 [facility] Comment on above: Result Comment: Canc elled via OM: Order cancelled - Patient discharged Performed By: #### L 100.0100, L500.4050 ####[facility] [address] [place], [address] HCT Normal 37-47 [facility] Comment on above: Result Comment: Canc elled via OM: Order cancelled - Patient discharged Performed By: #### L 100.0100, L500.4050 ####[facility] [address] [place], [address] HGB Normal 12.0-15.0 [facility] Comment on above: Result Comment: Canc elled via OM: Order cancelled - Patient discharged Performed By: #### L 100.0100, L500.4050 ####[facility] [address] [place], [address] MCH Normal 27.0-32.0 [facility] Comment on above: Result Comment: Canc elled via OM: Order cancelled - Patient discharged Performed By: #### L 100.0100, L500.4050 ####[facility] [address] [place], [address] MCHC Normal 32-36 [facility] Comment on above: Result Comment: Canc elled via OM: Order cancelled - Patient discharged Performed By: #### L 100.0100, L500.4050 ####[facility] [address] [place], [address] MCV Normal 81-99 [facility] Comment on above: Result Comment: Canc elled via OM: Order cancelled - Patient discharged Performed By: #### L 100.0100, L500.4050 ####[facility] [address] [place], [address] NEUT% Normal 47-70 [facility] Comment on above: Result Comment: Canc elled via OM: Order cancelled - Patient discharged Performed By: #### L 100.0100, L500.4050 ####[facility] [address] [place], [address] PLT Normal 150-450 [facility] Comment on above: Result Comment: Canc elled via OM: Order cancelled - Patient discharged Performed By: #### L 100.0100, L500.4050 ####[facility] [address] [place], [address] RBC Normal 4.2-5.4 [facility] Comment on above: Result Comment: Canc elled via OM: Order cancelled - Patient discharged Performed By: #### L 100.0100, L500.4050 ####[facility] [address] [place], [address] RDW CV Normal 11.6-14.6 [facility] Comment on above: Result Comment: Canc elled via OM: Order cancelled - Patient discharged Performed By: #### L 100.0100, L500.4050 ####[facility] [address] [place], [address] RDW SD Normal 35.1-43.9 [facility] Comment on above: Result Comment: Canc elled via OM: Order cancelled - Patient discharged Performed By: #### L 100.0100, L500.4050 ####[facility] [address] [place], [address] WBC Normal 4.4-11.0 [facility] Comment on above: Result Comment: Canc elled via OM: Order cancelled - Patient discharged Performed By: #### L 100.0100, L500.4050 ####[facility] [address] [place], [address] Comprehensive Metabolic Prof ilon 08-25-2024 ALB Normal 3.5-5.0 [facility] Comment on above: Result Comment: Canc elled via OM: Order cancelled - Patient discharged Performed By: #### L 100.0100, L500.4050 ####[facility] [address] [place], [address] ALK PHOS Normal 35-104 [facility] Comment on above: Result Comment: Canc elled via OM: Order cancelled - Patient discharged Performed By: #### L 100.0100, L500.4050 ####[facility] [address] [place], [address] ALT Normal <=34 [facility] Comment on above: Result Comment: Canc elled via OM: Order cancelled - Patient discharged Performed By: #### L 100.0100, L500.4050 ####[facility] [address] [place], [address] AST Normal <=31 [facility] Comment on above: Result Comment: Canc elled via OM: Order cancelled - Patient discharged Performed By: #### L 100.0100, L500.4050 ####[facility] [address] [place], [address] BUN Normal 4-19 [facility] Comment on above: Result Comment: Canc elled via OM: Order cancelled - Patient discharged Performed By: #### L 100.0100, L500.4050 ####[facility] [address] [place], [address] BUN/CRE Normal 10-20 [facility] Comment on above: Result Comment: Canc elled via OM: Order cancelled - Patient discharged Performed By: #### L 100.0100, L500.4050 ####[facility] [address] [place], [address] Calcium Normal 7.6-11.0 [facility] Comment on above: Result Comment: Canc elled via OM: Order cancelled - Patient discharged Performed By: #### L 100.0100, L500.4050 ####[facility] [address] [place], [address] CL Normal 98-108 [facility] Comment on above: Result Comment: Canc elled via OM: Order cancelled - Patient discharged Performed By: #### L 100.0100, L500.4050 ####[facility] [address] [place], [address] CO2 Normal 21.0-32.0 [facility] Comment on above: Result Comment: Canc elled via OM: Order cancelled - Patient discharged Performed By: #### L 100.0100, L500.4050 ####[facility] [address] [place], [address] CREAT,SERUM Normal 0.70-1.20 [facility] Comment on above: Result Comment: Canc elled via OM: Order cancelled - Patient discharged Performed By: #### L 100.0100, L500.4050 ####[facility] [address] [place], [address] eGFR Normal >60 [facility] Comment on above: Result Comment: Canc elled via OM: Order cancelled - Patient discharged Performed By: #### L 100.0100, L500.4050 ####[facility] [address] [place], [address] GAP Normal 5-15 [facility] Comment on above: Result Comment: Canc elled via OM: Order cancelled - Patient discharged Performed By: #### L 100.0100, L500.4050 ####[facility] [address] [place], [address] GLU Normal 70-99 [facility] Comment on above: Result Comment: Canc elled via OM: Order cancelled - Patient discharged Performed By: #### L 100.0100, L500.4050 ####[facility] [address] [place], [place], [address] Potassium Normal 3.3-5.1 [facility] Comment on above: Result Comment: Canc elled via OM: Order cancelled - Patient discharged Performed By: #### L 100.0100, L500.4050 ####[facility] [address] [place], [address] T BILI Normal 0.00-1.30 [facility] Comment on above: Result Comment: Canc elled via OM: Order cancelled - Patient discharged Performed By: #### L 100.0100, L500.4050 ####[facility] [address] [place], [address] T PROT Normal 5.9-8.4 [facility] Comment on above: Result Comment: Canc elled via OM: Order cancelled - Patient discharged Performed By: #### L 100.0100, L500.4050 ####[facility] [address] [place], [address] Comprehensive Metabolic Profil Normal 133-145 [facility] Comment on above: Result Comment: Canc elled via OM: Order cancelled - Patient discharged Performed By: #### L 100.0100, L500.4050 ####[facility] [address] [place], [address] Absolute lymphocyte countOrd ered By: Taylro Tejeda on 08-24-2024 Lymphocytes Auto (Unsp spec) [#/Vol] 1.18 10*3/uL 0.83-4.51 [facility] Anion gap in Serum or Plasma Ordered By: Taylor Tejeda on 08-24-2024 Anion gap [Moles/Vol] 12 mmol/L 5-15 [facility] Automated lymphocyte count a s percentage of total leukocytesOrdered By: Taylor Tejeda on 08-24-2024 Lymphocytes/100 WBC Auto (Unsp spec) 14.1 % Low 19-41 [facility] BUN/creatinine ratioOrdered By: Taylor Tejeda on 08-24-2024 Urea nitrogen/Creatinine [Mass ratio] 10.5 mg/mg 10-20 [facility] Basophil percentageOrdered B y: Taylor Tejeda on 08-24-2024 Basophils/100 WBC (Bld) 0.5 % 0-1 [facility] Bilirubin, totalOrdered By: Taylor Tejeda on 08-24-2024 Bilirubin [Mass/Vol] 0.32 mg/dL 0.00-1.30 [facility] CBC W/Diff, Automatedon 06-03 16-2024 Absolute Lymph 1.18 X10 3/uL Normal 0.83-4.51 [facility] Comment on above: Performed By: #### L 100.0100, L500.4050 ####[facility] [address] [place], [address] Absolute Neut 6.4 X10 3/uL Normal 2.0-7.7 [facility] Comment on above: Performed By: #### L 100.0100, L500.4050 ####[facility] [address] [place], [address] Basophils/100 WBC (Bld) 0.5 % Normal 0-1 [facility] Comment on above: Performed By: #### L 100.0100, L500.4050 ####[facility] [address] [place], [address] Eosinophils/100 WBC (Bld) 2.2 % Normal 0-5 [facility] Comment on above: Performed By: #### L 100.0100, L500.4050 ####[facility] [address] [place], [address] Erythrocyte distribution width (RBC) [Ratio] 14.0 % Normal 11.6-14.6 [facility] Comment on above: Performed By: #### L 100.0100, L500.4050 ####[facility] [address] [place], [address] Hematocrit (Bld) [Volume fraction] 36.5 % Low 37-47 [facility] Comment on above: Performed By: #### L 100.0100, L500.4050 ####[facility] [address] [place], [address] Hemoglobin (Bld) [Mass/Vol] 12.0 g/dL Normal 12.0-15.0 [facility] Comment on above: Performed By: #### L 100.0100, L500.4050 ####[facility] [address] [place], [address] IG% 0.600 Normal 0.0-0.9 [facility] Comment on above: Result Comment: IG% - Immature Granulocytes (promyelocytes, myelocytes andmetamyelocytes) > 1% indicates that a LEFT SHIFT is Present. Performed By: #### L 100.0100, L500.4050 ####[facility] [address] [place], [address] Lymphocytes/100 WBC (Bld) 14.1 % Low 19-41 [facility] Comment on above: Performed By: #### L 100.0100, L500.4050 ####[facility] [address] [place], [address] MCH (RBC) [Entitic mass] 31.6 pg Normal 27.0-32.0 [facility] Comment on above: Performed By: #### L 100.0100, L500.4050 ####[facility] [address] [place], [address] MCHC (RBC) [Mass/Vol] 32.9 g/dL Normal 32-36 [facility] Comment on above: Performed By: #### L 100.0100, L500.4050 ####[facility] [address] [place], [address] MCV (RBC) [Entitic vol] 96.1 fL Normal 81-99 [facility] Comment on above: Performed By: #### L 100.0100, L500.4050 ####[facility] [address] [place], [address] Monocytes/100 WBC (Bld) 6.6 % Normal 0-10 [facility] Comment on above: Performed By: #### L 100.0100, L500.4050 ####[facility] [address] [place], [address] Neutrophils/100 WBC (Bld) 76.0 % High 47-70 [facility] Comment on above: Performed By: #### L 100.0100, L500.4050 ####[facility] [address] [place], [address] Nucleated RBC (Bld) [#/Vol] 0 10*3/uL Normal 0-5 [facility] Comment on above: Performed By: #### L 100.0100, L500.4050 ####[facility] [address] [place], [address] Platelet mean volume (Bld) [Entitic vol] 10.1 fL Normal 6.2-12.0 [facility] Comment on above: Performed By: #### L 100.0100, L500.4050 ####[facility] [address] [place], [address] Platelets (Bld) [#/Vol] 246 10*3/uL Normal 150-450 [facility] Comment on above: Performed By: #### L 100.0100, L500.4050 ####[facility] [address] [place], [address] RBC (Bld) [#/Vol] 3.80 10*6/uL Low 4.2-5.4 [facility] Comment on above: Performed By: #### L 100.0100, L500.4050 ####[facility] [address] [place], [address] RDW SD 48.5 fl High 35.1-43.9 [facility] Comment on above: Performed By: #### L 100.0100, L500.4050 ####[facility] [address] [place], [address] WBC (Bld) [#/Vol] 8.4 10*3/uL Normal 4.4-11.0 [facility] Comment on above: Performed By: #### L 100.0100, L500.4050 ####[facility] [address] [place], [address] Carbon dioxide, total [Moles /volume] in Central venous bloodOrdered By: Taylor Tejeda on 08-24-2024 CO2 [Moles/Vol] 21.5 mmol/L 21.0-32.0 [facility] Chloride assayOrdered By: Soledad Tejeda on 08-24-2024 Chloride [Moles/Vol] 104 mmol/L 98-108 [facility] Comprehensive Metabolic Prof ilon 08-24-2024 Albumin [Mass/Vol] 3.5 g/dL Normal 3.5-5.0 [facility] Comment on above: Performed By: #### L 100.0100, L500.4050 ####[facility] [address] [place], [address] Albumin/Globulin [Mass ratio] 1.4 {ratio} Normal 0.9-2.4 [facility] Comment on above: Performed By: #### L 100.0100, L500.4050 ####[facility] [address] [place], [address] ALK PHOS 163 U/L High 35-104 [facility] Comment on above: Performed By: #### L 100.0100, L500.4050 ####[facility] [address] [place], [address] ALT [Catalytic activity/Vol] 184 U/L High <=34 [facility] Comment on above: Performed By: #### L 100.0100, L500.4050 ####[facility] [address] [place], [address] AST [Catalytic activity/Vol] 54 U/L High <=31 [facility] Comment on above: Performed By: #### L 100.0100, L500.4050 ####[facility] [address] [place], [address] Bilirubin [Mass/Vol] 0.32 mg/dL Normal 0.00-1.30 [facility] Comment on above: Performed By: #### L 100.0100, L500.4050 ####[facility] [address] [place], [address] BUN/CRE 10.5 RATIO Normal 10-20 [facility] Comment on above: Performed By: #### L 100.0100, L500.4050 ####[facility] [address] [place], [address] Calcium [Mass/Vol] 8.8 mg/dL Normal 7.6-11.0 [facility] Comment on above: Performed By: #### L 100.0100, L500.4050 ####[facility] [address] [place], [address] Chloride [Moles/Vol] 104 mmol/L Normal 98-108 [facility] Comment on above: Performed By: #### L 100.0100, L500.4050 ####[facility] [address] [place], [address] CO2 [Moles/Vol] 21.5 mmol/L Normal 21.0-32.0 [facility] Comment on above: Performed By: #### L 100.0100, L500.4050 ####[facility] [address] [place], [address] Creatinine [Mass/Vol] 1.02 mg/dL Normal 0.70-1.20 [facility] Comment on above: Performed By: #### L 100.0100, L500.4050 ####[facility] [address] [place], [address] ECRCL 60.78 ml/min Normal 50-250 [facility] Comment on above: Performed By: #### L 100.0100, L500.4050 ####[facility] [address] [place], [address] GAP 12 Normal 5-15 [facility] Comment on above: Performed By: #### L 100.0100, L500.4050 ####[facility] [address] [place], [address] GFR/1.73 sq M.predicted among non-blacks MDRD (S/P/Bld) [Vol rate/Area] 70 mL/min/{1.73_m2} Normal >60 [facility] Comment on above: Result Comment: mL/m in/1.73m2 CKD-EPI Creatinine Equation (2020) Performed By: #### L 100.0100, L500.4050 ####[facility] [address] [place], [address] Globulin (S) [Mass/Vol] 2.5 g/dL Normal 2.2-4.2 [facility] Comment on above: Performed By: #### L 100.0100, L500.4050 ####[facility] [address] [place], [address] Glucose [Mass/Vol] 126 mg/dL High 70-99 [facility] Comment on above: Performed By: #### L 100.0100, L500.4050 ####[facility] [address] [place], [address] Potassium [Moles/Vol] 4.2 mmol/L Normal 3.3-5.1 [facility] Comment on above: Performed By: #### L 100.0100, L500.4050 ####[facility] [address] [place], [address] Sodium [Moles/Vol] 137 mmol/L Normal 133-145 [facility] Comment on above: Performed By: #### L 100.0100, L500.4050 ####[facility] [address] [place], [address] T PROT 6.0 g/dL Normal 5.9-8.4 [facility] Comment on above: Performed By: #### L 100.0100, L500.4050 ####[facility] [address] [place], [address] Urea nitrogen [Mass/Vol] 11 mg/dL Normal 4-19 [facility] Comment on above: Performed By: #### L 100.0100, L500.4050 ####[facility] [address] [place], [address] Discharge Instructionon 08-12 Discharge Instruction Normal [facility] Eosinophil percentageOrdered By: Taylor Tejeda on 08-24-2024 Eosinophils/100 WBC (Bld) 2.2 % 0-5 [facility] Erythrocyte distribution wid th ratioOrdered By: Taylor Tejeda on 08-24-2024 Erythrocyte distribution width (RBC) [Ratio] 14.0 % 11.6-14.6 [facility] Erythrocyte distribution wid th standard deviationOrdered By: Taylor Tejeda on 08-24-2024 Erythrocyte distribution width (RBC) [Ratio] 48.5 fl High 35.1-43.9 [facility] Glomerular filtration rate ( GFR) estimation/1.73 sq m using serum, plasma, or whole bOrdered By: Taylor Tejeda on 08-24-2024 GFR/1.73 sq M.predicted among non-blacks MDRD (S/P/Bld) [Vol rate/Area] 70 mL/min/{1.73_m2} >60 [facility] Hematocrit Auto (Bld) [Volum e fraction]Ordered By: Taylor Tejeda on 08-24-2024 Hematocrit (Bld) [Volume fraction] 36.5 % Low 37-47 [facility] Hemoglobin measurementOrdere d By: Taylor Tejeda on 08-24-2024 Hemoglobin (Bld) [Mass/Vol] 12.0 g/dL 12.0-15.0 [facility] Immature granulocytes/100 WB C Auto (Bld)Ordered By: Taylor Tejeda on 08-24-2024 Immature granulocytes/100 WBC (Bld) 0.600 % 0.0-0.9 [facility] MCV (mean corpuscular volume ) determinationOrdered By: Taylor Tejeda on 08-24-2024 MCV (RBC) [Entitic vol] 96.1 fL 81-99 [facility] Mean corpuscular hemoglobin (MCH) determinationOrdered By: Taylor Tejeda on 08-24-2024 MCH (RBC) [Entitic mass] 31.6 pg 27.0-32.0 [facility] Monocyte percentageOrdered B y: Taylor Tejeda on 08-24-2024 Monocytes/100 WBC (Bld) 6.6 % 0-10 [facility] Neutrophil percentageOrdered By: Taylor Tejeda 08-24-2024 Neutrophils/100 WBC (Bld) 76.0 % High 47-70 [facility] No Panel InformationOrdered By: Taylor Tejeda on 08-24-2024 54 U/L High <32 [facility] Platelet countOrdered By: Soledad Tejeda on 08-24-2024 Platelets (Bld) [#/Vol] 246 10*3/uL 150-450 [facility] Potassium measurement (mass/ volume)Ordered By: Taylor Tejeda on 08-24-2024 Potassium (Unsp spec) [Mass/Vol] 4.2 mmol/L 3.3-5.1 [facility] RBC Auto (Bld) [#/Vol]Ordere d By: Taylor Tejeda on 08-24-2024 RBC (Bld) [#/Vol] 3.80 10*6/uL Low 4.2-5.4 [facility] Serum creatinine measurement (mass/volume)Ordered By: Taylor Tejeda on 08-24-2024 Creatinine [Mass/Vol] 1.02 mg/dL 0.70-1.20 [facility] Serum globulin measurementOr dered By: Taylor Tejeda 08-24-2024 Globulin (S) [Mass/Vol] 2.5 g/dL 2.2-4.2 [facility] Serum glucose measurement (m ass/volume)Ordered By: Taylor Tejeda on 08-24-2024 Glucose [Mass/Vol] 126 mg/dL High 70-99 [facility] Serum or plasma alanine hair otransferase (ALT) measurementOrdered By: Taylor Tejeda on 08-24-2024 ALT [Catalytic activity/Vol] 184 U/L High <35 [facility] Serum or plasma albumin lelsie urement (mass/volume)Ordered By: Taylor Tejeda on 08-24-2024 Albumin [Mass/Vol] 3.5 g/dL 3.5-5.0 [facility] Serum or plasma albumin/glob ulin mass ratioOrdered By: Taylor Tejeda on 08-24-2024 Albumin/Globulin [Mass ratio] 1.4 {ratio} 0.9-2.4 [facility] Serum or plasma alkaline delfin sphatase measurementOrdered By: Taylor Tejeda on 08-24-2024 ALP [Catalytic activity/Vol] 163 U/L High 35-104 [facility] Serum or plasma calcium leslie urement (mass/volume)Ordered By: Taylor Tejeda on 08-24-2024 Calcium [Mass/Vol] 8.8 mg/dL 7.6-11.0 [facility] Serum or plasma urea nitroge n measurement (mass/volume)Ordered By: Taylor Tejeda on 08-24-2024 Urea nitrogen [Mass/Vol] 11 mg/dL 4-19 [facility] Sodium levelOrdered By: Taylor Tejeda on 08-24-2024 Sodium [Moles/Vol] 137 mmol/L 133-145 [facility] Total proteinOrdered By: Laquita Tejeda on 08-24-2024 Protein [Mass/Vol] 6.0 g/dL 5.9-8.4 [facility] White blood cell (WBC) count Ordered By: Taylor Tejeda on 08-24-2024 WBC (Bld) [#/Vol] 8.4 10*3/uL 4.4-11.0 [facility] Abdomen/Pelvis W IV Cont ONL Yon 08-23-2024 Abdomen/Pelvis W IV Cont ONLY Normal [facility] Abdomen/Pelvis without Conto n 08-23-2024 Abdomen/Pelvis without Cont Normal [facility] CBC W/Diff, Automatedon 06- Absolute Lymph 1.35 X10 3/uL Normal 0.83-4.51 [facility] Comment on above: Performed By: #### L 500.4050, L100.0100 ####[facility] [address] [place], [address] Absolute Neut 10.2 X10 3/uL High 2.0-7.7 [facility] Comment on above: Performed By: #### L 500.4050, L100.0100 ####[facility] [address] [place], [address] Basophils/100 WBC (Bld) 0.3 % Normal 0-1 [facility] Comment on above: Performed By: #### L 500.4050, L100.0100 ####[facility] [address] [place], [address] Eosinophils/100 WBC (Bld) 1.0 % Normal 0-5 [facility] Comment on above: Performed By: #### L 500.4050, L100.0100 ####[facility] [address] [place], [address] Erythrocyte distribution width (RBC) [Ratio] 13.5 % Normal 11.6-14.6 [facility] Comment on above: Performed By: #### L 500.4050, L100.0100 ####[facility] [address] [place], [address] Hematocrit (Bld) [Volume fraction] 38.3 % Normal 37-47 [facility] Comment on above: Performed By: #### L 500.4050, L100.0100 ####[facility] [address] [place], [address] Hemoglobin (Bld) [Mass/Vol] 12.7 g/dL Normal 12.0-15.0 [facility] Comment on above: Performed By: #### L 500.4050, L100.0100 ####[facility] [address] [place], [address] IG% 0.500 Normal 0.0-0.9 [facility] Comment on above: Result Comment: IG% - Immature Granulocytes (promyelocytes, myelocytes andmetamyelocytes) > 1% indicates that a LEFT SHIFT is Present. Performed By: #### L 500.4050, L100.0100 ####[facility] [address] [place], [address] Lymphocytes/100 WBC (Bld) 10.7 % Low 19-41 [facility] Comment on above: Performed By: #### L 500.4050, L100.0100 ####[facility] [address] [place], [address] MCH (RBC) [Entitic mass] 31.5 pg Normal 27.0-32.0 [facility] Comment on above: Performed By: #### L 500.4050, L100.0100 ####[facility] [address] [place], [address] MCHC (RBC) [Mass/Vol] 33.2 g/dL Normal 32-36 [facility] Comment on above: Performed By: #### L 500.4050, L100.0100 ####[facility] [address] [place], [address] MCV (RBC) [Entitic vol] 95.0 fL Normal 81-99 [facility] Comment on above: Performed By: #### L 500.4050, L100.0100 ####[facility] [address] [place], [address] Monocytes/100 WBC (Bld) 7.0 % Normal 0-10 [facility] Comment on above: Performed By: #### L 500.4050, L100.0100 ####[facility] [address] [place], [address] Neutrophils/100 WBC (Bld) 80.5 % High 47-70 [facility] Comment on above: Performed By: #### L 500.4050, L100.0100 ####[facility] [address] [place], [address] Nucleated RBC (Bld) [#/Vol] 0 10*3/uL Normal 0-5 [facility] Comment on above: Performed By: #### L 500.4050, L100.0100 ####[facility] [address] [place], [address] Platelet mean volume (Bld) [Entitic vol] 10.4 fL Normal 6.2-12.0 [facility] Comment on above: Performed By: #### L 500.4050, L100.0100 ####[facility] [address] [place], [address] Platelets (Bld) [#/Vol] 274 10*3/uL Normal 150-450 [facility] Comment on above: Performed By: #### L 500.4050, L100.0100 ####[facility] [address] [place], [address] RBC (Bld) [#/Vol] 4.03 10*6/uL Low 4.2-5.4 [facility] Comment on above: Performed By: #### L 500.4050, L100.0100 ####[facility] [address] [place], [address] RDW SD 46.5 fl High 35.1-43.9 [facility] Comment on above: Performed By: #### L 500.4050, L100.0100 ####[facility] [address] [place], [address] WBC (Bld) [#/Vol] 12.7 10*3/uL High 4.4-11.0 [facility] Comment on above: Performed By: #### L 500.4050, L100.0100 ####[facility] [address] [place], [address] Comprehensive Metabolic Prof ilon 08-23-2024 Albumin [Mass/Vol] 4.0 g/dL Normal 3.5-5.0 [facility] Comment on above: Performed By: #### L 500.4050, L100.0100 ####[facility] [address] [place], [address] Albumin/Globulin [Mass ratio] 1.3 {ratio} Normal 0.9-2.4 [facility] Comment on above: Performed By: #### L 500.4050, L100.0100 ####[facility] [address] [place], [address] ALK PHOS 188 U/L High 35-104 [facility] Comment on above: Performed By: #### L 500.4050, L100.0100 ####[facility] [address] [place], [address] ALT [Catalytic activity/Vol] 277 U/L High <=34 [facility] Comment on above: Performed By: #### L 500.4050, L100.0100 ####[facility] [address] [place], [address] AST [Catalytic activity/Vol] 115 U/L High <=31 [facility] Comment on above: Performed By: #### L 500.4050, L100.0100 ####[facility] [address] [place], [address] Bilirubin [Mass/Vol] 0.59 mg/dL Normal 0.00-1.30 [facility] Comment on above: Performed By: #### L 500.4050, L100.0100 ####[facility] [address] [place], [address] BUN/CRE 9.0 RATIO Low 10-20 [facility] Comment on above: Performed By: #### L 500.4050, L100.0100 ####[facility] [address] [place], [address] Calcium [Mass/Vol] 9.1 mg/dL Normal 7.6-11.0 [facility] Comment on above: Performed By: #### L 500.4050, L100.0100 ####[facility] [address] [place], [address] Chloride [Moles/Vol] 100 mmol/L Normal 98-108 [facility] Comment on above: Performed By: #### L 500.4050, L100.0100 ####[facility] [address] [place], [address] CO2 [Moles/Vol] 23.1 mmol/L Normal 21.0-32.0 [facility] Comment on above: Performed By: #### L 500.4050, L100.0100 ####[facility] [address] [place], [address] Creatinine [Mass/Vol] 0.75 mg/dL Normal 0.70-1.20 [facility] Comment on above: Performed By: #### L 500.4050, L100.0100 ####[facility] [address] [place], [address] ECRCL 82.66 ml/min Normal 50-250 [facility] Comment on above: Performed By: #### L 500.4050, L100.0100 ####[facility] [address] [place], [address] GAP 12 Normal 5-15 [facility] Comment on above: Performed By: #### L 500.4050, L100.0100 ####[facility] [address] [place], [address] GFR/1.73 sq M.predicted among non-blacks MDRD (S/P/Bld) [Vol rate/Area] 100 mL/min/{1.73_m2} Normal >60 [facility] Comment on above: Result Comment: mL/m in/1.73m2 CKD-EPI Creatinine Equation (2020) Performed By: #### L 500.4050, L100.0100 ####[facility] [address] [place], [address] Globulin (S) [Mass/Vol] 3.0 g/dL Normal 2.2-4.2 [facility] Comment on above: Performed By: #### L 500.4050, L100.0100 ####[facility] [address] [place], [address] Glucose [Mass/Vol] 104 mg/dL High 70-99 [facility] Comment on above: Performed By: #### L 500.4050, L100.0100 ####[facility] [address] [place], [address] Potassium [Moles/Vol] 4.2 mmol/L Normal 3.3-5.1 [facility] Comment on above: Performed By: #### L 500.4050, L100.0100 ####[facility] [address] [place], [address] Sodium [Moles/Vol] 135 mmol/L Normal 133-145 [facility] Comment on above: Performed By: #### L 500.4050, L100.0100 ####[facility] [address] [place], [address] T PROT 7.0 g/dL Normal 5.9-8.4 [facility] Comment on above: Performed By: #### L 500.4050, L100.0100 ####[facility] [address] [place], [address] Urea nitrogen [Mass/Vol] 7 mg/dL Normal 4-19 [facility] Comment on above: Performed By: #### L 500.4050, L100.0100 ####[facility] [address] [place], [address] CBC W/Diff, Automatedon 08-12-2024 Absolute Lymph 1.39 X10 3/uL Normal 0.83-4.51 [facility] Comment on above: Performed By: #### L 500.4050, L100.0100 ####[facility] [address] [place], [address] Absolute Neut 8.6 X10 3/uL High 2.0-7.7 [facility] Comment on above: Performed By: #### L 500.4050, L100.0100 ####[facility] [address] [place], [address] Basophils/100 WBC (Bld) 0.5 % Normal 0-1 [facility] Comment on above: Performed By: #### L 500.4050, L100.0100 ####[facility] [address] [place], [address] Eosinophils/100 WBC (Bld) 0.8 % Normal 0-5 [facility] Comment on above: Performed By: #### L 500.4050, L100.0100 ####[facility] [address] [place], [address] Erythrocyte distribution width (RBC) [Ratio] 13.8 % Normal 11.6-14.6 [facility] Comment on above: Performed By: #### L 500.4050, L100.0100 ####[facility] [address] [place], [address] Hematocrit (Bld) [Volume fraction] 39.3 % Normal 37-47 [facility] Comment on above: Performed By: #### L 500.4050, L100.0100 ####[facility] [address] [place], [address] Hemoglobin (Bld) [Mass/Vol] 12.9 g/dL Normal 12.0-15.0 [facility] Comment on above: Performed By: #### L 500.4050, L100.0100 ####[facility] [address] [place], [address] IG% 0.500 Normal 0.0-0.9 [facility] Comment on above: Result Comment: IG% - Immature Granulocytes (promyelocytes, myelocytes andmetamyelocytes) > 1% indicates that a LEFT SHIFT is Present. Performed By: #### L 500.4050, L100.0100 ####[facility] [address] [place], [address] Lymphocytes/100 WBC (Bld) 12.5 % Low 19-41 [facility] Comment on above: Performed By: #### L 500.4050, L100.0100 ####[facility] [address] [place], [address] MCH (RBC) [Entitic mass] 31.3 pg Normal 27.0-32.0 [facility] Comment on above: Performed By: #### L 500.4050, L100.0100 ####[facility] [address] [place], [address] MCHC (RBC) [Mass/Vol] 32.8 g/dL Normal 32-36 [facility] Comment on above: Performed By: #### L 500.4050, L100.0100 ####[facility] [address] [place], [address] MCV (RBC) [Entitic vol] 95.4 fL Normal 81-99 [facility] Comment on above: Performed By: #### L 500.4050, L100.0100 ####[facility] [address] [place], [address] Monocytes/100 WBC (Bld) 8.0 % Normal 0-10 [facility] Comment on above: Performed By: #### L 500.4050, L100.0100 ####[facility] [address] [place], [address] Neutrophils/100 WBC (Bld) 77.7 % High 47-70 [facility] Comment on above: Performed By: #### L 500.4050, L100.0100 ####[facility] [address] [place], [address] Nucleated RBC (Bld) [#/Vol] 0 10*3/uL Normal 0-5 [facility] Comment on above: Performed By: #### L 500.4050, L100.0100 ####[facility] [address] [place], [address] Platelet mean volume (Bld) [Entitic vol] 10.0 fL Normal 6.2-12.0 [facility] Comment on above: Performed By: #### L 500.4050, L100.0100 ####[facility] [address] [place], [address] Platelets (Bld) [#/Vol] 291 10*3/uL Normal 150-450 [facility] Comment on above: Performed By: #### L 500.4050, L100.0100 ####[facility] [address] [place], [address] RBC (Bld) [#/Vol] 4.12 10*6/uL Low 4.2-5.4 [facility] Comment on above: Performed By: #### L 500.4050, L100.0100 ####[facility] [address] [place], [address] RDW SD 48.1 fl High 35.1-43.9 [facility] Comment on above: Performed By: #### L 500.4050, L100.0100 ####[facility] [address] [place], [address] WBC (Bld) [#/Vol] 11.1 10*3/uL High 4.4-11.0 [facility] Comment on above: Performed By: #### L 500.4050, L100.0100 ####[facility] [address] [place], [address] Comprehensive Metabolic Prof ilon 08-22-2024 Albumin [Mass/Vol] 4.0 g/dL Normal 3.5-5.0 [facility] Comment on above: Performed By: #### L 500.4050, L100.0100 ####[facility] [address] [place], [address] Albumin/Globulin [Mass ratio] 1.4 {ratio} Normal 0.9-2.4 [facility] Comment on above: Performed By: #### L 500.4050, L100.0100 ####[facility] [address] [place], [address] ALK PHOS 199 U/L High 35-104 [facility] Comment on above: Performed By: #### L 500.4050, L100.0100 ####[facility] [address] [place], [address] ALT [Catalytic activity/Vol] 368 U/L High <=34 [facility] Comment on above: Performed By: #### L 500.4050, L100.0100 ####[facility] [address] [place], [address] AST [Catalytic activity/Vol] 284 U/L High <=31 [facility] Comment on above: Performed By: #### L 500.4050, L100.0100 ####[facility] [address] [place], [address] Bilirubin [Mass/Vol] 0.89 mg/dL Normal 0.00-1.30 [facility] Comment on above: Performed By: #### L 500.4050, L100.0100 ####[facility] [address] [place], [address] BUN/CRE 12.0 RATIO Normal 10-20 [facility] Comment on above: Performed By: #### L 500.4050, L100.0100 ####[facility] [address] [place], [address] Calcium [Mass/Vol] 9.5 mg/dL Normal 7.6-11.0 [facility] Comment on above: Performed By: #### L 500.4050, L100.0100 ####[facility] [address] [place], [address] Chloride [Moles/Vol] 101 mmol/L Normal 98-108 [facility] Comment on above: Performed By: #### L 500.4050, L100.0100 ####[facility] [address] [place], [address] CO2 [Moles/Vol] 22.1 mmol/L Normal 21.0-32.0 [facility] Comment on above: Performed By: #### L 500.4050, L100.0100 ####[facility] [address] [place], [address] Creatinine [Mass/Vol] 0.98 mg/dL Normal 0.70-1.20 [facility] Comment on above: Performed By: #### L 500.4050, L100.0100 ####[facility] [address] [place], [address] ECRCL 63.26 ml/min Normal 50-250 [facility] Comment on above: Performed By: #### L 500.4050, L100.0100 ####[facility] [address] [place], [address] GAP 12 Normal 5-15 [facility] Comment on above: Performed By: #### L 500.4050, L100.0100 ####[facility] [address] [place], [address] GFR/1.73 sq M.predicted among non-blacks MDRD (S/P/Bld) [Vol rate/Area] 73 mL/min/{1.73_m2} Normal >60 [facility] Comment on above: Result Comment: mL/m in/1.73m2 CKD-EPI Creatinine Equation (2020) Performed By: #### L 500.4050, L100.0100 ####[facility] [address] [place], [address] Globulin (S) [Mass/Vol] 2.8 g/dL Normal 2.2-4.2 [facility] Comment on above: Performed By: #### L 500.4050, L100.0100 ####[facility] [address] [place], [address] Glucose [Mass/Vol] 96 mg/dL Normal 70-99 [facility] Comment on above: Performed By: #### L 500.4050, L100.0100 ####[facility] [address] [place], [address] Potassium [Moles/Vol] 4.1 mmol/L Normal 3.3-5.1 [facility] Comment on above: Performed By: #### L 500.4050, L100.0100 ####[facility] [address] [place], [address] Sodium [Moles/Vol] 135 mmol/L Normal 133-145 [facility] Comment on above: Performed By: #### L 500.4050, L100.0100 ####[facility] [address] [place], [address] T PROT 6.9 g/dL Normal 5.9-8.4 [facility] Comment on above: Performed By: #### L 500.4050, L100.0100 ####[facility] [address] [place], [address] Urea nitrogen [Mass/Vol] 12 mg/dL Normal 4-19 [facility] Comment on above: Performed By: #### L 500.4050, L100.0100 ####[facility] [address] [place], [address] MR/YXQYDRAP7dq 08-22-2024 MR/POSTOPAN2 Normal [facility] CBC-Complete Blood Cnt No Di ffon 08-21-2024 Erythrocyte distribution width (RBC) [Ratio] 13.7 % Normal 11.6-14.6 [facility] Comment on above: Performed By: #### L 100.0500, L500.4050 ####[facility] [address] [place], [address] Hematocrit (Bld) [Volume fraction] 39.1 % Normal 37-47 [facility] Comment on above: Performed By: #### L 100.0500, L500.4050 ####[facility] [address] [place], [address] Hemoglobin (Bld) [Mass/Vol] 12.6 g/dL Normal 12.0-15.0 [facility] Comment on above: Performed By: #### L 100.0500, L500.4050 ####[facility] [address] [place], [address] MCH (RBC) [Entitic mass] 31.2 pg Normal 27.0-32.0 [facility] Comment on above: Performed By: #### L 100.0500, L500.4050 ####[facility] [address] [place], [address] MCHC (RBC) [Mass/Vol] 32.2 g/dL Normal 32-36 [facility] Comment on above: Performed By: #### L 100.0500, L500.4050 ####[facility] [address] [place], [address] MCV (RBC) [Entitic vol] 96.8 fL Normal 81-99 [facility] Comment on above: Performed By: #### L 100.0500, L500.4050 ####[facility] [address] [place], [address] Platelet mean volume (Bld) [Entitic vol] 10.4 fL Normal 6.2-12.0 [facility] Comment on above: Performed By: #### L 100.0500, L500.4050 ####[facility] [address] [place], [address] Platelets (Bld) [#/Vol] 402 10*3/uL Normal 150-450 [facility] Comment on above: Performed By: #### L 100.0500, L500.4050 ####[facility] [address] [place], [address] RBC (Bld) [#/Vol] 4.04 10*6/uL Low 4.2-5.4 [facility] Comment on above: Performed By: #### L 100.0500, L500.4050 ####[facility] [address] [place], [address] RDW SD 48.3 fl High 35.1-43.9 [facility] Comment on above: Performed By: #### L 100.0500, L500.4050 ####[facility] [address] [place], [address] WBC (Bld) [#/Vol] 10.5 10*3/uL Normal 4.4-11.0 [facility] Comment on above: Performed By: #### L 100.0500, L500.4050 ####[facility] [address] [place], [address] Comprehensive Metabolic Prof ilon 08-21-2024 Albumin [Mass/Vol] 4.2 g/dL Normal 3.5-5.0 [facility] Comment on above: Performed By: #### L 100.0500, L500.4050 ####[facility] [address] [place], [address] Albumin/Globulin [Mass ratio] 1.4 {ratio} Normal 0.9-2.4 [facility] Comment on above: Performed By: #### L 100.0500, L500.4050 ####[facility] [address] [place], [address] ALK PHOS 197 U/L High 35-104 [facility] Comment on above: Performed By: #### L 100.0500, L500.4050 ####[facility] [address] [place], [address] ALT [Catalytic activity/Vol] 383 U/L High <=34 [facility] Comment on above: Performed By: #### L 100.0500, L500.4050 ####[facility] [address] [place], [address] AST [Catalytic activity/Vol] 535 U/L High <=31 [facility] Comment on above: Performed By: #### L 100.0500, L500.4050 ####[facility] [address] [place], [address] Bilirubin [Mass/Vol] 0.82 mg/dL Normal 0.00-1.30 [facility] Comment on above: Performed By: #### L 100.0500, L500.4050 ####[facility] [address] [place], [address] BUN/CRE 13.5 RATIO Normal 10-20 [facility] Comment on above: Performed By: #### L 100.0500, L500.4050 ####[facility] [address] [place], [address] Calcium [Mass/Vol] 9.5 mg/dL Normal 7.6-11.0 [facility] Comment on above: Performed By: #### L 100.0500, L500.4050 ####[facility] [address] [place], [address] Chloride [Moles/Vol] 100 mmol/L Normal 98-108 [facility] Comment on above: Performed By: #### L 100.0500, L500.4050 ####[facility] [address] [place], [address] CO2 [Moles/Vol] 22.0 mmol/L Normal 21.0-32.0 [facility] Comment on above: Performed By: #### L 100.0500, L500.4050 ####[facility] [address] [place], [address] Creatinine [Mass/Vol] 1.00 mg/dL Normal 0.70-1.20 [facility] Comment on above: Performed By: #### L 100.0500, L500.4050 ####[facility] [address] [place], [address] ECRCL 61.99 ml/min Normal 50-250 [facility] Comment on above: Performed By: #### L 100.0500, L500.4050 ####[facility] [address] [place], [address] GAP 13 Normal 5-15 [facility] Comment on above: Performed By: #### L 100.0500, L500.4050 ####[facility] [address] [place], [address] GFR/1.73 sq M.predicted among non-blacks MDRD (S/P/Bld) [Vol rate/Area] 71 mL/min/{1.73_m2} Normal >60 [facility] Comment on above: Result Comment: mL/m in/1.73m2 CKD-EPI Creatinine Equation (2020) Performed By: #### L 100.0500, L500.4050 ####[facility] [address] [place], [address] Globulin (S) [Mass/Vol] 2.9 g/dL Normal 2.2-4.2 [facility] Comment on above: Performed By: #### L 100.0500, L500.4050 ####[facility] [address] [place], [address] Glucose [Mass/Vol] 83 mg/dL Normal 70-99 [facility] Comment on above: Performed By: #### L 100.0500, L500.4050 ####[facility] [address] [place], [address] Potassium [Moles/Vol] 4.5 mmol/L Normal 3.3-5.1 [facility] Comment on above: Performed By: #### L 100.0500, L500.4050 ####[facility] [address] [place], [address] Sodium [Moles/Vol] 135 mmol/L Normal 133-145 [facility] Comment on above: Performed By: #### L 100.0500, L500.4050 ####[facility] [address] [place], [address] T PROT 7.1 g/dL Normal 5.9-8.4 [facility] Comment on above: Performed By: #### L 100.0500, L500.4050 ####[facility] [address] [place], [address] Urea nitrogen [Mass/Vol] 14 mg/dL Normal 4-19 [facility] Comment on above: Performed By: #### L 100.0500, L500.4050 ####[facility] [address] [place], [address] ERCP Biliary/Pancreason 08-12 ERCP Biliary/Pancreas Normal [facility] ERCP Reporton 08-21-2024 ERCP Report Normal [facility] Electrocardiogram reportOrde red By: Mercy Bishop on 08-21-2024 EKG study [facility] Work Phone: MR/POSTOP.ANEon 08-21-2024 MR/POSTOP.ANE Normal [facility] Special Stain Group IIon Special Stain Group II Normal [facility] Comment on above: Performed By: #### P SSII ####[facility] [address] [place], [address] 12 Lead EKGon 08-20-2024 12 Lead EKG Normal [facility] Absolute lymphocyte countOrd ered By: ED PROVIDER on 08-20-2024 Lymphocytes Auto (Unsp spec) [#/Vol] 1.29 10*3/uL 0.83-4.51 [facility] Anion gap in Serum or Plasma Ordered By: Simona Fernandez on 08-20-2024 Anion gap [Moles/Vol] 13 mmol/L 5-15 [facility] Automated lymphocyte count a s percentage of total leukocytesOrdered By: ED PROVIDER on 08-20-2024 Lymphocytes/100 WBC Auto (Unsp spec) 10.9 % Low 19-41 [facility] BUN/creatinine ratioOrdered By: Simona Fernandez on 08-20-2024 Urea nitrogen/Creatinine [Mass ratio] 16.5 mg/mg 10-20 [facility] Basophil percentageOrdered B y: ED PROVIDER on 08-20-2024 Basophils/100 WBC (Bld) 0.4 % 0-1 [facility] Bilirubin Test strip Ql (U)O rdered By: Simona Fernandez on 08-20-2024 Bilirubin Ql (U) Negative Negative [facility] Bilirubin, totalOrdered By: Simona Fernandez on 08-20-2024 Bilirubin [Mass/Vol] 0.67 mg/dL 0.00-1.30 [facility] CBC W/Diff, Automatedon Absolute Lymph 1.29 X10 3/uL Normal 0.83-4.51 [facility] Comment on above: Performed By: #### L 100.0100, L501.2450, L700.6800, L500.4050 ####[facility] [address] [place], [address] Absolute Neut 9.9 X10 3/uL High 2.0-7.7 [facility] Comment on above: Performed By: #### L 100.0100, L501.2450, L700.6800, L500.4050 ####[facility] [address] [place], [address] Basophils/100 WBC (Bld) 0.4 % Normal 0-1 [facility] Comment on above: Performed By: #### L 100.0100, L501.2450, L700.6800, L500.4050 ####[facility] [address] [place], [address] Eosinophils/100 WBC (Bld) 0.2 % Normal 0-5 [facility] Comment on above: Performed By: #### L 100.0100, L501.2450, L700.6800, L500.4050 ####[facility] [address] [place], [address] Erythrocyte distribution width (RBC) [Ratio] 13.6 % Normal 11.6-14.6 [facility] Comment on above: Performed By: #### L 100.0100, L501.2450, L700.6800, L500.4050 ####[facility] [address] [place], [address] Hematocrit (Bld) [Volume fraction] 38.1 % Normal 37-47 [facility] Comment on above: Performed By: #### L 100.0100, L501.2450, L700.6800, L500.4050 ####[facility] [address] [place], [address] Hemoglobin (Bld) [Mass/Vol] 12.6 g/dL Normal 12.0-15.0 [facility] Comment on above: Performed By: #### L 100.0100, L501.2450, L700.6800, L500.4050 ####[facility] [address] [place], [address] IG% 0.600 Normal 0.0-0.9 [facility] Comment on above: Result Comment: IG% - Immature Granulocytes (promyelocytes, myelocytes andmetamyelocytes) > 1% indicates that a LEFT SHIFT is Present. Performed By: #### L 100.0100, L501.2450, L700.6800, L500.4050 ####[facility] [address] [place], [address] Lymphocytes/100 WBC (Bld) 10.9 % Low 19-41 [facility] Comment on above: Performed By: #### L 100.0100, L501.2450, L700.6800, L500.4050 ####[facility] [address] [place], [address] MCH (RBC) [Entitic mass] 31.7 pg Normal 27.0-32.0 [facility] Comment on above: Performed By: #### L 100.0100, L501.2450, L700.6800, L500.4050 ####[facility] [address] [place], [address] MCHC (RBC) [Mass/Vol] 33.1 g/dL Normal 32-36 [facility] Comment on above: Performed By: #### L 100.0100, L501.2450, L700.6800, L500.4050 ####[facility] [address] [place], [address] MCV (RBC) [Entitic vol] 96.0 fL Normal 81-99 [facility] Comment on above: Performed By: #### L 100.0100, L501.2450, L700.6800, L500.4050 ####[facility] [address] [place], [address] Monocytes/100 WBC (Bld) 4.6 % Normal 0-10 [facility] Comment on above: Performed By: #### L 100.0100, L501.2450, L700.6800, L500.4050 ####[facility] [address] [place], [address] Neutrophils/100 WBC (Bld) 83.3 % High 47-70 [facility] Comment on above: Performed By: #### L 100.0100, L501.2450, L700.6800, L500.4050 ####[facility] [address] [place], [address] Nucleated RBC (Bld) [#/Vol] 0 10*3/uL Normal 0-5 [facility] Comment on above: Performed By: #### L 100.0100, L501.2450, L700.6800, L500.4050 ####[facility] [address] [place], [address] Platelet mean volume (Bld) [Entitic vol] 9.9 fL Normal 6.2-12.0 [facility] Comment on above: Performed By: #### L 100.0100, L501.2450, L700.6800, L500.4050 ####[facility] [address] [place], [address] Platelets (Bld) [#/Vol] 373 10*3/uL Normal 150-450 [facility] Comment on above: Performed By: #### L 100.0100, L501.2450, L700.6800, L500.4050 ####[facility] [address] [place], [address] RBC (Bld) [#/Vol] 3.97 10*6/uL Low 4.2-5.4 [facility] Comment on above: Performed By: #### L 100.0100, L501.2450, L700.6800, L500.4050 ####[facility] [address] [place], [address] RDW SD 47.5 fl High 35.1-43.9 [facility] Comment on above: Performed By: #### L 100.0100, L501.2450, L700.6800, L500.4050 ####[facility] [address] [place], [address] WBC (Bld) [#/Vol] 11.9 10*3/uL High 4.4-11.0 [facility] Comment on above: Performed By: #### L 100.0100, L501.2450, L700.6800, L500.4050 ####[facility] [address] [place], [address] Carbon dioxide, total [Moles /volume] in Central venous bloodOrdered By: Simona Fernandez on 08-20-2024 CO2 [Moles/Vol] 19.0 mmol/L Low 21.0-32.0 [facility] Chest PA and Lateralon 08-20 Chest PA and Lateral Normal [facility] Chloride assayOrdered By: Demetrio Fernandez on 08-20-2024 Chloride [Moles/Vol] 104 mmol/L 98-108 [facility] Comprehensive Metabolic Prof ilon 08-20-2024 Albumin [Mass/Vol] 4.0 g/dL Normal 3.5-5.0 [facility] Comment on above: Performed By: #### L 100.0100, L501.2450, L700.6800, L500.4050 ####[facility] [address] [place], [address] Albumin/Globulin [Mass ratio] 1.5 {ratio} Normal 0.9-2.4 [facility] Comment on above: Performed By: #### L 100.0100, L501.2450, L700.6800, L500.4050 ####[facility] [address] [place], [address] ALK PHOS 182 U/L High 35-104 [facility] Comment on above: Performed By: #### L 100.0100, L501.2450, L700.6800, L500.4050 ####[facility] [address] [place], [address] ALT [Catalytic activity/Vol] 103 U/L High <=34 [facility] Comment on above: Performed By: #### L 100.0100, L501.2450, L700.6800, L500.4050 ####[facility] [address] [place], [address] AST [Catalytic activity/Vol] 115 U/L High <=31 [facility] Comment on above: Performed By: #### L 100.0100, L501.2450, L700.6800, L500.4050 ####[facility] [address] [place], [address] Bilirubin [Mass/Vol] 0.67 mg/dL Normal 0.00-1.30 [facility] Comment on above: Performed By: #### L 100.0100, L501.2450, L700.6800, L500.4050 ####[facility] [address] [place], [address] BUN/CRE 16.5 RATIO Normal 10-20 [facility] Comment on above: Performed By: #### L 100.0100, L501.2450, L700.6800, L500.4050 ####[facility] [address] [place], [address] Calcium [Mass/Vol] 9.1 mg/dL Normal 7.6-11.0 [facility] Comment on above: Performed By: #### L 100.0100, L501.2450, L700.6800, L500.4050 ####[facility] [address] [place], [address] Chloride [Moles/Vol] 104 mmol/L Normal 98-108 [facility] Comment on above: Performed By: #### L 100.0100, L501.2450, L700.6800, L500.4050 ####[facility] [address] [place], [address] CO2 [Moles/Vol] 19.0 mmol/L Low 21.0-32.0 [facility] Comment on above: Performed By: #### L 100.0100, L501.2450, L700.6800, L500.4050 ####[facility] [address] [place], [address] Creatinine [Mass/Vol] 0.97 mg/dL Normal 0.70-1.20 [facility] Comment on above: Performed By: #### L 100.0100, L501.2450, L700.6800, L500.4050 ####[facility] [address] [place], [address] ECRCL 63.91 ml/min Normal 50-250 [facility] Comment on above: Performed By: #### L 100.0100, L501.2450, L700.6800, L500.4050 ####[facility] [id number] [place], [address] GAP 13 Normal 5-15 [facility] Comment on above: Performed By: #### L 100.0100, L501.2450, L700.6800, L500.4050 ####[facility] [id number] [place], [address] GFR/1.73 sq M.predicted among non-blacks MDRD (S/P/Bld) [Vol rate/Area] 74 mL/min/{1.73_m2} Normal >60 [facility] Comment on above: Result Comment: mL/m in/1.73m2 CKD-EPI Creatinine Equation (2020) Performed By: #### L 100.0100, L501.2450, L700.6800, L500.4050 ####[facility] [facility] [address] [place], [address] Globulin (S) [Mass/Vol] 2.7 g/dL Normal 2.2-4.2 [facility] Comment on above: Performed By: #### L 100.0100, L501.2450, L700.6800, L500.4050 ####[facility] [address] [place], [address] Glucose [Mass/Vol] 118 mg/dL High 70-99 [facility] Comment on above: Performed By: #### L 100.0100, L501.2450, L700.6800, L500.4050 ####[facility] [address] [place], [address] Potassium [Moles/Vol] 4.9 mmol/L Normal 3.3-5.1 [facility] Comment on above: Performed By: #### L 100.0100, L501.2450, L700.6800, L500.4050 ####[facility] [address] [place], [address] Sodium [Moles/Vol] 136 mmol/L Normal 133-145 [facility] Comment on above: Performed By: #### L 100.0100, L501.2450, L700.6800, L500.4050 ####[facility] [address] [place], [address] T PROT 6.6 g/dL Normal 5.9-8.4 [facility] Comment on above: Performed By: #### L 100.0100, L501.2450, L700.6800, L500.4050 ####[facility] [address] [place], [address] Urea nitrogen [Mass/Vol] 16 mg/dL Normal 4-19 [facility] Comment on above: Performed By: #### L 100.0100, L501.2450, L700.6800, L500.4050 ####[facility] [address] [place], [address] Emergency Department Summary on 08-20-2024 Emergency Department Summary Normal [facility] Eosinophil percentageOrdered By: ED PROVIDER on 08-20-2024 Eosinophils/100 WBC (Bld) 0.2 % 0-5 [facility] Erythrocyte distribution wid th ratioOrdered By: ED PROVIDER on 08-20-2024 Erythrocyte distribution width (RBC) [Ratio] 13.6 % 11.6-14.6 [facility] Erythrocyte distribution wid th standard deviationOrdered By: ED PROVIDER on 08-20-2024 Erythrocyte distribution width (RBC) [Ratio] 47.5 fl High 35.1-43.9 [facility] Glomerular filtration rate ( GFR) estimation/1.73 sq m using serum, plasma, or whole bOrdered By: Simona Fernandez on 08-20-2024 GFR/1.73 sq M.predicted among non-blacks MDRD (S/P/Bld) [Vol rate/Area] 74 mL/min/{1.73_m2} >60 [facility] H AND P Exam - Hospitaliston 08-20-2024 H&P Exam - Hospitalist Normal [facility] Hematocrit Auto (Bld) [Volum e fraction]Ordered By: ED PROVIDER on 08-20-2024 Hematocrit (Bld) [Volume fraction] 38.1 % 37-47 [facility] Hemoglobin measurementOrdere d By: ED PROVIDER on 08-20-2024 Hemoglobin (Bld) [Mass/Vol] 12.6 g/dL 12.0-15.0 [facility] Immature granulocytes/100 WB C Auto (Bld)Ordered By: ED PROVIDER on 08-20-2024 Immature granulocytes/100 WBC (Bld) 0.600 % 0.0-0.9 [facility] Ketones Test strip Ql (U)Ord ered By: Simona Fernandez on 08-20-2024 Ketones Ql (U) Negative Negative [facility] L503.7505on 08-20-2024 Natriuretic peptide B (Bld) [Mass/Vol] 3711 pg/mL High <=450 [facility] Comment on above: Result Comment: Hear t Failure Unlikely: < 300 pg/mLHeart Failure Likely< 50 Years: > 450 pg/mL50-75 Years: > 900 pg/mL>75 Years: > 1800 pg/mL Performed By: #### L 503.7506 ####[facility] [address] [place], [place], [id number] Lipaseon 08-20-2024 Lipase [Catalytic activity/Vol] 11 U/L Low 13-75 [facility] Comment on above: Result Comment: Liam rader note:LIPASE revised reference range effective 22.New Lipase methodology. Expected to produce lower valuesthan the previous assay method.NEW Reference Range: 13 - 75 U/L Performed By: #### L 100.0100, L501.2450, L700.6800, L500.4050 ####[facility] [address] [place], [address] Liveron 08-20-2024 Liver Normal [facility] MCV (mean corpuscular volume ) determinationOrdered By: ED PROVIDER on 08-20-2024 MCV (RBC) [Entitic vol] 96.0 fL 81-99 [facility] MR/CON.PCM.GIon 08-20-2024 MR/CON.PCM.GI Normal [facility] Mean corpuscular hemoglobin (MCH) determinationOrdered By: ED PROVIDER on 08-20-2024 MCH (RBC) [Entitic mass] 31.7 pg 27.0-32.0 [facility] Monocyte percentageOrdered B y: ED PROVIDER on 08-20-2024 Monocytes/100 WBC (Bld) 4.6 % 0-10 [facility] Mucus LM Ql (Urine sed)Order ed By: Simona Fernandez on 08-20-2024 Mucus Ql (Urine sed) 0 SEEN /hpf [facility] Natriuretic peptide.B prohor abbey N-Terminal [Mass/volume] in Serum or PlasmaOrdered By: Simona Fernandez on 08-20-2024 Natriuretic peptide.B prohormone N-Terminal [Mass/Vol] 3711 pg/mL High <450 [facility] Neutrophil percentageOrdered By: ED PROVIDER on 08-20-2024 Neutrophils/100 WBC (Bld) 83.3 % High 47-70 [facility] Nitrite Test strip Ql (U)Ord ered By: Simona Fernandez on 08-20-2024 Nitrite Ql (U) Negative Negative [facility] No Panel InformationOrdered By: Simona Fernandez on 08-20-2024 115 U/L High <32 [facility] Platelet countOrdered By: ED PROVIDER on 08-20-2024 Platelets (Bld) [#/Vol] 373 10*3/uL 150-450 [facility] Potassium measurement (mass/ volume)Ordered By: Simona Fernandez on 08-20-2024 Potassium (Unsp spec) [Mass/Vol] 4.9 mmol/L 3.3-5.1 [facility] ,Serum,hCG Quali.on 08-20-2024 HCG, SERUM QUAL Negative Normal [facility] Comment on above: Performed By: #### L 100.0100, L501.2450, L700.6800, L500.4050 ####[facility] [address] [place], [address] ,Urineon 08-20-2024 Beta HCG ( test) Ql (U) Normal [facility] Comment on above: Order Comment: Femal es 12-55 or menstruation outside age range Result Comment: PREG SERUM ALREADY COMPLETED Performed By: #### L 400.7600 ####[facility] [address] [place], [address] INTERNAL QC OK? Normal [facility] Comment on above: Order Comment: Femal es 12-55 or menstruation outside age range Result Comment: PREG SERUM ALREADY COMPLETED Performed By: #### L 400.7600 ####[facility] [address] [place], [address] RECORD KIT LOT# Normal [facility] Comment on above: Order Comment: Femal es 12-55 or menstruation outside age range Result Comment: PREG SERUM ALREADY COMPLETED Performed By: #### L 400.7600 ####[facility] [address] [place], [place], [address] Protein Test strip Ql (U)Ord ered By: Simona Fernandez on 08-20-2024 Protein Ql (U) 15 mg/dl High Negative [facility] RBC Auto (Bld) [#/Vol]Ordere d By: ED PROVIDER on 08-20-2024 RBC (Bld) [#/Vol] 3.97 10*6/uL Low 4.2-5.4 [facility] Serum beta-hCG test, qualita tiveOrdered By: Simona Fernandez on 08-20-2024 Beta HCG ( test) Ql Negative [facility] Serum creatinine measurement (mass/volume)Ordered By: Simona Fernandez on 08-20-2024 Creatinine [Mass/Vol] 0.97 mg/dL 0.70-1.20 [facility] Serum globulin measurementOr dered By: Simona Fernandez on 08-20-2024 Globulin (S) [Mass/Vol] 2.7 g/dL 2.2-4.2 [facility] Serum glucose measurement (m ass/volume)Ordered By: Simona Fernandez on 08-20-2024 Glucose [Mass/Vol] 118 mg/dL High 70-99 [facility] Serum or plasma alanine hair otransferase (ALT) measurementOrdered By: Simona Fernandez on 08-20-2024 ALT [Catalytic activity/Vol] 103 U/L High <35 [facility] Serum or plasma albumin leslie urement (mass/volume)Ordered By: Simona Fernandez on 08-20-2024 Albumin [Mass/Vol] 4.0 g/dL 3.5-5.0 [facility] Serum or plasma albumin/glob ulin mass ratioOrdered By: Simona Fernandez on 08-20-2024 Albumin/Globulin [Mass ratio] 1.5 {ratio} 0.9-2.4 [facility] Serum or plasma alkaline delfin sphatase measurementOrdered By: Simona Fernandez on 08-20-2024 ALP [Catalytic activity/Vol] 182 U/L High 35-104 [facility] Serum or plasma calcium leslie urement (mass/volume)Ordered By: Simona Fernandez on 08-20-2024 Calcium [Mass/Vol] 9.1 mg/dL 7.6-11.0 [facility] Serum or plasma urea nitroge n measurement (mass/volume)Ordered By: Simona Fernandez on 08-20-2024 Urea nitrogen [Mass/Vol] 16 mg/dL 4-19 [facility] Sodium levelOrdered By: Shanika Fernandez on 08-20-2024 Sodium [Moles/Vol] 136 mmol/L 133-145 [facility] Squamous epithelial cells de tection in urine sediment by light microscopyOrdered By: Simona Fernandez on 08-20-2024 Epithelial cells.squamous LM Ql (Urine sed) 0-5 SEEN /hpf 5-10 [facility] Total proteinOrdered By: Cherri Fernandez on 08-20-2024 Protein [Mass/Vol] 6.6 g/dL 5.9-8.4 [facility] Urinalysis, Completeon 08-20 EPI,SQUAMOUS 0-5 SEEN Normal 5-10 [facility] Comment on above: Order Comment: CLEAN CATCH Performed By: #### L 400.0001 ####[facility] [address] [place], [address] RBC 0-5 SEEN Normal 0-5 [facility] Comment on above: Order Comment: CLEAN CATCH Performed By: #### L 400.0001 ####[facility] [address] [place], [address] WBC 0-5 SEEN Normal 0-5 [facility] Comment on above: Order Comment: CLEAN CATCH Performed By: #### L 400.0001 ####[facility] [address] [place], [address] BACTERIA 0 SEEN Normal None Seen [facility] Comment on above: Order Comment: CLEAN CATCH Performed By: #### L 400.0001 ####[facility] [address] [place], [address] Mucus Ql (Urine sed) 0 SEEN Normal [facility] Comment on above: Order Comment: CLEAN CATCH Performed By: #### L 400.0001 ####[facility] [address] [place], [address] Urine clarityOrdered By: Cherri Fernandez on 08-20-2024 Clarity (U) Clear Clear [facility] Urine color determinationOrd ered By: Simona Fernandez on 08-20-2024 Color (U) Straw Yellow [facility] Urine glucose detectionOrder ed By: Simona Fernandez on 08-20-2024 Glucose Ql (U) Normal mg/dl Normal [facility] Urine leukocyte esterase det ection by dipstickOrdered By: Simona Fernandez on 08-20-2024 Leukocyte esterase Test strip Ql (U) Negative Negative [facility] Urine pHOrdered By: Simona lucio on 08-20-2024 pH (U) 6.5 [pH] 5.0 - 8.0 [facility] Urine sediment bacteria coun t by microscopy (number/high power field)Ordered By: Simona Fernandez on 08-20-2024 Bacteria LM.HPF (Urine sed) [#/Area] 0 /[HPF] None Seen [facility] Urine specific gravity measu rementOrdered By: Simona Fernandez on 08-20-2024 Specific gravity (U) [Rel density] 1.010 1.002-1.03 0 [facility] Urine urobilinogen measureme ntOrdered By: Simona Fernandez on 08-20-2024 Urobilinogen Ql (U) Normal mg/dl Normal [facility] White blood cell (WBC) count Ordered By: ED PROVIDER on 08-20-2024 WBC (Bld) [#/Vol] 11.9 10*3/uL High 4.4-11.0 [facility] White blood cell countOrdere d By: Simona Fernandez on 08-20-2024 White blood cell count 0-5 SEEN /hpf 0-5 [facility] Ova and Parasites 8623on OP Normal [facility] Comment on above: Performed By: #### L 7000.0700, M100.6796, M100.0605, M100.637, L7400.3300, M600.5000 ####[facility] [address] [place], [place], [address] ECG 12-LEADon 08-15-2024 ECG 12-LEAD Ventricular Rate 60 Atrial Rate 60 P-R Interval 170 QRS Duration 102 Q-T Interval 436 QTC Calculation(Bazett) 436 P Granville 17 R Granville -73 T Granville 83 QRS Count 10 Q Onset 205 P Onset 120 P Offset 185 T Offset 423 QTC Fredericia 436 Diagnosis Normal sinus rhythm Possible Left atrial enlargement Incomplete right bundle branch block Left anterior fascicular block Septal infarct , age undetermined Abnormal ECG When compared with ECG of 05-MAY-2006 11:19, Significant changes have occurred Normal [facility] SANDRA Comprehensive Panelon ANTI-DNA (DS)AB <1 Normal 0-9 [facility] Comment on above: Result Comment: Nega tive <5 Equivocal 5 - 9 Positive >9 Performed By: #### L 503.5510, L3200.0500, L3100.5440, L5500.0410, L3100.3425, L503.6150, L3300.0100, L3100.1850, L504.2610, L100.9950, L3300.1200, L100.0100, L501.9520, L300.3900, L3410.2400, L3200.1100, L3100.6900, L101.9900, L500.4050, L501.6710, L501.9985, L3400.0700, L503.6550, L3300.1800 ####[facility] [address] [place], [address] ANTI-SS-A < 0.2 Normal 0.0-0.9 [facility] Comment on above: Performed By: #### L 503.5510, L3200.0500, L3100.5440, L5500.0410, L3100.3425, L503.6150, L3300.0100, L3100.1850, L504.2610, L100.9950, L3300.1200, L100.0100, L501.9520, L300.3900, L3410.2400, L3200.1100, L3100.6900, L101.9900, L500.4050, L501.6710, L501.9985, L3400.0700, L503.6550, L3300.1800 ####[facility] [address] [place], [address] ANTI-SS-B 0.2 AI Normal 0.0-0.9 [facility] Comment on above: Performed By: #### L 503.5510, L3200.0500, L3100.5440, L5500.0410, L3100.3425, L503.6150, L3300.0100, L3100.1850, L504.2610, L100.9950, L3300.1200, L100.0100, L501.9520, L300.3900, L3410.2400, L3200.1100, L3100.6900, L101.9900, L500.4050, L501.6710, L501.9985, L3400.0700, L503.6550, L3300.1800 ####[facility] [address] [place], [place], [address] Abdomen/Pelvis without Conto n 08-11-2024 Abdomen/Pelvis without Cont Normal [facility] Absolute lymphocyte countOrd ered By: Gage Shamra on 08-11-2024 Lymphocytes Auto (Unsp spec) [#/Vol] 1.19 10*3/uL 0.83-4.51 [facility] Allergen, Food Profileon CLAM <0.10 Normal Class 0 [facility] Comment on above: Performed By: #### L 503.5510, L3200.0500, L3100.5440, L5500.0410, L3100.3425, L503.6150, L3300.0100, L3100.1850, L504.2610, L100.9950, L3300.1200, L100.0100, L501.9520, L300.3900, L3410.2400, L3200.1100, L3100.6900, L101.9900, L500.4050, L501.6710, L501.9985, L3400.0700, L503.6550, L3300.1800 ####[facility] [address] [place], [address] CODFISH <0.10 Normal Class 0 [facility] Comment on above: Performed By: #### L 503.5510, L3200.0500, L3100.5440, L5500.0410, L3100.3425, L503.6150, L3300.0100, L3100.1850, L504.2610, L100.9950, L3300.1200, L100.0100, L501.9520, L300.3900, L3410.2400, L3200.1100, L3100.6900, L101.9900, L500.4050, L501.6710, L501.9985, L3400.0700, L503.6550, L3300.1800 ####[facility] [address] [place], [place], [address] COMMENT Comment Normal . [facility] Comment on above: Result Comment: Lupe urias of Specific IgE Class Description of Class ----- < 0.10 0 Negative 0.10 - 0.31 0/I Equivocal/Low 0.32 - 0.55 I Low 0.56 - 1.40 II Moderate 1.41 - 3.90 III High 3.91 - 19.00 IV Very High 19.01 - 100.00 V Very High >100.00 Very High Performed By: #### L 503.5510, L3200.0500, L3100.5440, L5500.0410, L3100.3425, L503.6150, L3300.0100, L3100.1850, L504.2610, L100.9950, L3300.1200, L100.0100, L501.9520, L300.3900, L3410.2400, L3200.1100, L3100.6900, L101.9900, L500.4050, L501.6710, L501.9985, L3400.0700, L503.6550, L3300.1800 ####[facility] [address] [place], [place], [id number] CORN <0.10 Normal Class 0 [facility] Comment on above: Performed By: #### L 503.5510, L3200.0500, L3100.5440, L5500.0410, L3100.3425, L503.6150, L3300.0100, L3100.1850, L504.2610, L100.9950, L3300.1200, L100.0100, L501.9520, L300.3900, L3410.2400, L3200.1100, L3100.6900, L101.9900, L500.4050, L501.6710, L501.9985, L3400.0700, L503.6550, L3300.1800 ####[facility] [address] [facility] [place], [place], [id number] EGG, WHITE <0.10 Normal Class 0 [facility] Comment on above: Performed By: #### L 503.5510, L3200.0500, L3100.5440, L5500.0410, L3100.3425, L503.6150, L3300.0100, L3100.1850, L504.2610, L100.9950, L3300.1200, L100.0100, L501.9520, L300.3900, L3410.2400, L3200.1100, L3100.6900, L101.9900, L500.4050, L501.6710, L501.9985, L3400.0700, L503.6550, L3300.1800 ####[facility] [address] [place], [place], [address] MILK (COW) 0.24 kU/L Abnormal Class 0/I [facility] Comment on above: Performed By: #### L 503.5510, L3200.0500, L3100.5440, L5500.0410, L3100.3425, L503.6150, L3300.0100, L3100.1850, L504.2610, L100.9950, L3300.1200, L100.0100, L501.9520, L300.3900, L3410.2400, L3200.1100, L3100.6900, L101.9900, L500.4050, L501.6710, L501.9985, L3400.0700, L503.6550, L3300.1800 ####[facility] [address] [place], [place], [id number] PEANUT <0.10 Normal Class 0 [facility] Comment on above: Performed By: #### L 503.5510, L3200.0500, L3100.5440, L5500.0410, L3100.3425, L503.6150, L3300.0100, L3100.1850, L504.2610, L100.9950, L3300.1200, L100.0100, L501.9520, L300.3900, L3410.2400, L3200.1100, L3100.6900, L101.9900, L500.4050, L501.6710, L501.9985, L3400.0700, L503.6550, L3300.1800 ####[facility] [address] [place], [address] SCALLOP <0.10 Normal Class 0 [facility] Comment on above: Performed By: #### L 503.5510, L3200.0500, L3100.5440, L5500.0410, L3100.3425, L503.6150, L3300.0100, L3100.1850, L504.2610, L100.9950, L3300.1200, L100.0100, L501.9520, L300.3900, L3410.2400, L3200.1100, L3100.6900, L101.9900, L500.4050, L501.6710, L501.9985, L3400.0700, L503.6550, L3300.1800 ####[facility] [address] [place], [address] SESAME SEED <0.10 Normal Class 0 [facility] Comment on above: Result Comment: Perf ormed at: - [facility] [address] [id number] Director: Victor M Hargrove PhD, Phone: [phone] at: - [facility] [address] [place], [place] [id number] Director: Isac Kemp MD, Phone: [phone] Performed By: #### L 503.5510, L3200.0500, L3100.5440, L5500.0410, L3100.3425, L503.6150, L3300.0100, L3100.1850, L504.2610, L100.9950, L3300.1200, L100.0100, L501.9520, L300.3900, L3410.2400, L3200.1100, L3100.6900, L101.9900, L500.4050, L501.6710, L501.9985, L3400.0700, L503.6550, L3300.1800 ####[facility] [address] [facility] [place], [address] SHRIMP <0.10 Normal Class 0 [facility] Comment on above: Performed By: #### L 503.5510, L3200.0500, L3100.5440, L5500.0410, L3100.3425, L503.6150, L3300.0100, L3100.1850, L504.2610, L100.9950, L3300.1200, L100.0100, L501.9520, L300.3900, L3410.2400, L3200.1100, L3100.6900, L101.9900, L500.4050, L501.6710, L501.9985, L3400.0700, L503.6550, L3300.1800 ####[facility] [address] [place], [address] SOYBEAN <0.10 Normal Class 0 [facility] Comment on above: Performed By: #### L 503.5510, L3200.0500, L3100.5440, L5500.0410, L3100.3425, L503.6150, L3300.0100, L3100.1850, L504.2610, L100.9950, L3300.1200, L100.0100, L501.9520, L300.3900, L3410.2400, L3200.1100, L3100.6900, L101.9900, L500.4050, L501.6710, L501.9985, L3400.0700, L503.6550, L3300.1800 ####[facility] [address] [place], [address] WALNUT,(Food) <0.10 Normal Class 0 [facility] Comment on above: Performed By: #### L 503.5510, L3200.0500, L3100.5440, L5500.0410, L3100.3425, L503.6150, L3300.0100, L3100.1850, L504.2610, L100.9950, L3300.1200, L100.0100, L501.9520, L300.3900, L3410.2400, L3200.1100, L3100.6900, L101.9900, L500.4050, L501.6710, L501.9985, L3400.0700, L503.6550, L3300.1800 ####[facility] [address] [place], [address] WHEAT <0.10 Normal Class 0 [facility] Comment on above: Performed By: #### L 503.5510, L3200.0500, L3100.5440, L5500.0410, L3100.3425, L503.6150, L3300.0100, L3100.1850, L504.2610, L100.9950, L3300.1200, L100.0100, L501.9520, L300.3900, L3410.2400, L3200.1100, L3100.6900, L101.9900, L500.4050, L501.6710, L501.9985, L3400.0700, L503.6550, L3300.1800 ####[facility] [address] [place], [address] Anion gap in Serum or Plasma Ordered By: Gage Arianna on 08-11-2024 Anion gap [Moles/Vol] 12 mmol/L 5-15 [facility] Automated lymphocyte count a s percentage of total leukocytesOrdered By: Gagejuan Sharma on 08-11-2024 Lymphocytes/100 WBC Auto (Unsp spec) 11.4 % Low 19-41 [facility] BUN/creatinine ratioOrdered By: Maria Parham HealthCameliaLynne on 08-11-2024 Urea nitrogen/Creatinine [Mass ratio] 12.1 mg/mg 10- [facility] Basic Metabolic Profile (BMP )on 08-11-2024 BUN/CRE 12.1 RATIO Normal - [facility] Comment on above: Performed By: #### L 500.2500, L503.6005 ####[facility] [address] [place], [address] Calcium [Mass/Vol] 9.5 mg/dL Normal 7.6-11.0 [facility] Comment on above: Performed By: #### L 500.2500, L503.6005 ####[facility] [address] [place], [address] Chloride [Moles/Vol] 103 mmol/L Normal 98-108 [facility] Comment on above: Performed By: #### L 500.2500, L503.6005 ####[facility] [address] [place], [address] CO2 [Moles/Vol] 22.0 mmol/L Normal 21.0-32.0 [facility] Comment on above: Performed By: #### L 500.2500, L503.6005 ####[facility] [address] [place], [address] Creatinine [Mass/Vol] 0.74 mg/dL Normal 0.70-1.20 [facility] Comment on above: Performed By: #### L 500.2500, L503.6005 ####[facility] [address] [place], [address] ECRCL 83.77 ml/min Normal 50-250 [facility] Comment on above: Performed By: #### L 500.2500, L503.6005 ####[facility] [address] [place], [address] GAP 12 Normal 5-15 [facility] Comment on above: Performed By: #### L 500.2500, L503.6005 ####[facility] [address] [place], [address] GFR/1.73 sq M.predicted among non-blacks MDRD (S/P/Bld) [Vol rate/Area] 103 mL/min/{1.73_m2} Normal >60 [facility] Comment on above: Result Comment: mL/m in/1.73m2 CKD-EPI Creatinine Equation (2020) Performed By: #### L 500.2500, L503.6005 ####[facility] [address] [place], [address] Glucose [Mass/Vol] 90 mg/dL Normal 70-99 [facility] Comment on above: Performed By: #### L 500.2500, L503.6005 ####[facility] [address] [place], [address] Potassium [Moles/Vol] 4.2 mmol/L Normal 3.3-5.1 [facility] Comment on above: Performed By: #### L 500.2500, L503.6005 ####[facility] [address] [place], [address] Sodium [Moles/Vol] 137 mmol/L Normal 133-145 [facility] Comment on above: Performed By: #### L 500.2500, L503.6005 ####[facility] [address] [place], [address] Urea nitrogen [Mass/Vol] 9 mg/dL Normal 4-19 [facility] Comment on above: Performed By: #### L 500.2500, L503.6005 ####[facility] [address] [place], [address] Basophil percentageOrdered B y: Gage Sharma on 08-11-2024 Basophils/100 WBC (Bld) 0.9 % 0-1 [facility] Bilirubin Test strip Ql (U)O rdered By: Gagejuan Sharma on 08-11-2024 Bilirubin Ql (U) Negative Negative [facility] Bilirubin directOrdered By: Maria Parham HealthCameliaLynne on 08-11-2024 Bilirubin.direct [Mass/Vol] 0.12 mg/dL 0.00-0.30 [facility] Bilirubin, totalOrdered By: Maria Parham HealthJasmin on 08-11-2024 Bilirubin [Mass/Vol] 0.29 mg/dL 0.00-1.30 [facility] CBC W/Diff, Automatedon 05-05 12-2024 Absolute Lymph 1.19 X10 3/uL Normal 0.83-4.51 [facility] Comment on above: Performed By: #### L 100.0100 ####[facility] [address] [place], [address] Absolute Neut 8.4 X10 3/uL High 2.0-7.7 [facility] Comment on above: Performed By: #### L 100.0100 ####[facility] [address] [place], [address] Basophils/100 WBC (Bld) 0.9 % Normal 0-1 [facility] Comment on above: Performed By: #### L 100.0100 ####[facility] [address] [place], [address] Eosinophils/100 WBC (Bld) 1.9 % Normal 0-5 [facility] Comment on above: Performed By: #### L 100.0100 ####[facility] [address] [place], [address] Erythrocyte distribution width (RBC) [Ratio] 13.1 % Normal 11.6-14.6 [facility] Comment on above: Performed By: #### L 100.0100 ####[facility] [address] [place], [address] Hematocrit (Bld) [Volume fraction] 40.9 % Normal 37-47 [facility] Comment on above: Performed By: #### L 100.0100 ####[facility] [address] [place], [address] Hemoglobin (Bld) [Mass/Vol] 13.5 g/dL Normal 12.0-15.0 [facility] Comment on above: Performed By: #### L 100.0100 ####[facility] [address] [place], [address] IG% 0.700 Normal 0.0-0.9 [facility] Comment on above: Result Comment: IG% - Immature Granulocytes (promyelocytes, myelocytes andmetamyelocytes) > 1% indicates that a LEFT SHIFT is Present. Performed By: #### L 100.0100 ####[facility] [address] [place], [address] Lymphocytes/100 WBC (Bld) 11.4 % Low 19-41 [facility] Comment on above: Performed By: #### L 100.0100 ####[facility] [address] [place], [address] MCH (RBC) [Entitic mass] 31.7 pg Normal 27.0-32.0 [facility] Comment on above: Performed By: #### L 100.0100 ####[facility] [address] [place], [address] MCHC (RBC) [Mass/Vol] 33.0 g/dL Normal 32-36 [facility] Comment on above: Performed By: #### L 100.0100 ####[facility] [address] [place], [address] MCV (RBC) [Entitic vol] 96.0 fL Normal 81-99 [facility] Comment on above: Performed By: #### L 100.0100 ####[facility] [address] [place], [address] Monocytes/100 WBC (Bld) 4.9 % Normal 0-10 [facility] Comment on above: Performed By: #### L 100.0100 ####[facility] [address] [place], [address] Neutrophils/100 WBC (Bld) 80.2 % High 47-70 [facility] Comment on above: Performed By: #### L 100.0100 ####[facility] [address] [place], [address] Nucleated RBC (Bld) [#/Vol] 0 10*3/uL Normal 0-5 [facility] Comment on above: Performed By: #### L 100.0100 ####[facility] [address] [place], [address] Platelet mean volume (Bld) [Entitic vol] 9.9 fL Normal 6.2-12.0 [facility] Comment on above: Performed By: #### L 100.0100 ####[facility] [address] [place], [address] Platelets (Bld) [#/Vol] 433 10*3/uL Normal 150-450 [facility] Comment on above: Performed By: #### L 100.0100 ####[facility] [address] [place], [address] RBC (Bld) [#/Vol] 4.26 10*6/uL Normal 4.2-5.4 [facility] Comment on above: Performed By: #### L 100.0100 ####[facility] [address] [place], [address] RDW SD 46.5 fl High 35.1-43.9 [facility] Comment on above: Performed By: #### L 100.0100 ####[facility] [address] [place], [address] WBC (Bld) [#/Vol] 10.5 10*3/uL Normal 4.4-11.0 [facility] Comment on above: Performed By: #### L 100.0100 ####[facility] [address] [place], [address] Calprotectin, Stoolon [address] 13 ug/g Normal 0-120 [facility] Comment on above: Result Comment: Conc entration Interpretation Follow-Up< 5 - 50 ug/g Normal None>50 -120 ug/g Borderline Re-evaluate in 4-6 weeks >120 ug/g Abnormal Repeat as clinically indicatedPerformed at: [facility] [address] [id number] Director: Isac Kemp MD, Phone: [phone] Performed By: #### L 7000.0700, M100.6796, M100.0605, M100.637, L7400.3300, M600.5000 ####[facility] [address] [place], [address] Carbon dioxide, total [Moles /volume] in Central venous bloodOrdered By: Gage Sharma on 08-11-2024 CO2 [Moles/Vol] 22.0 mmol/L 21.0-32.0 [facility] Chloride assayOrdered By: Jose Maria Sharma on 08-11-2024 Chloride [Moles/Vol] 103 mmol/L 98-108 [facility] Emergency Department Summary on 08-11-2024 Emergency Department Summary Normal [facility] Eosinophil percentageOrdered By: Gagejuan Sharma on 08-11-2024 Eosinophils/100 WBC (Bld) 1.9 % 0-5 [facility] Erythrocyte distribution wid th ratioOrdered By: [facility] Falls[facility]anna on 08-11-2024 Erythrocyte distribution width (RBC) [Ratio] 13.1 % 11.6-14.6 [facility] Erythrocyte distribution wid th standard deviationOrdered By: [facility] Fallskorin Batista on 08-11-2024 Erythrocyte distribution width (RBC) [Ratio] 46.5 fl High 35.1-43.9 [facility] Glomerular filtration rate ( GFR) estimation/1.73 sq m using serum, plasma, or whole bOrdered By: Gagejuan Sharma on 08-11-2024 GFR/1.73 sq M.predicted among non-blacks MDRD (S/P/Bld) [Vol rate/Area] 103 mL/min/{1.73_m2} >60 [facility] Hematocrit Auto (Bld) [Volum e fraction]Ordered By: [facility] on 08-11-2024 Hematocrit (Bld) [Volume fraction] 40.9 % 37-47 [facility] Hemoglobin measurementOrdere d By: Agge Edith on 08-11-2024 Hemoglobin (Bld) [Mass/Vol] 13.5 g/dL 12.0-15.0 [facility] Immature granulocytes/100 WB C Auto (Bld)Ordered By: Gagejuan Sharma on 08-11-2024 Immature granulocytes/100 WBC (Bld) 0.700 % 0.0-0.9 [facility] Ketones Test strip Ql (U)Ord ered By: Gage Edith on 08-11-2024 Ketones Ql (U) Negative Negative [facility] Lactic Acidon 08-11-2024 Lactate [Moles/Vol] mmol/L Normal 0.0-2.0 [facility] Comment on above: Order Comment: Y Performed By: #### L 500.2500, L503.6005 ####[facility] [address] [place], [address] Lipaseon 08-11-2024 Lipase [Catalytic activity/Vol] 17 U/L Normal 13-75 [facility] Comment on above: Result Comment: Liam rader note:LIPASE revised reference range effective 22.New Lipase methodology. Expected to produce lower valuesthan the previous assay method.NEW Reference Range: 13 - 75 U/L Performed By: #### L 501.2450, L500.3400 ####[facility] [address] [place], [address] Liver Profileon 08-11-2024 Albumin [Mass/Vol] 4.0 g/dL Normal 3.5-5.0 [facility] Comment on above: Performed By: #### L 501.2450, L500.3400 ####[facility] [address] [place], [address] ALK PHOS 173 U/L High 35-104 [facility] Comment on above: Performed By: #### L 501.2450, L500.3400 ####[facility] [address] [place], [address] ALT [Catalytic activity/Vol] 32 U/L Normal <=34 [facility] Comment on above: Performed By: #### L 501.2450, L500.3400 ####[facility] [address] [place], [address] AST [Catalytic activity/Vol] 38 U/L High <=31 [facility] Comment on above: Performed By: #### L 501.2450, L500.3400 ####[facility] [address] [place], [address] Bilirubin [Mass/Vol] 0.29 mg/dL Normal 0.00-1.30 [facility] Comment on above: Performed By: #### L 501.2450, L500.3400 ####[facility] [address] [place], [address] Bilirubin.direct [Mass/Vol] 0.12 mg/dL Normal 0.00-0.30 [facility] Comment on above: Performed By: #### L 501.2450, L500.3400 ####[facility] [address] [place], [address] Globulin (S) [Mass/Vol] 3.1 g/dL Normal 2.2-4.2 [facility] Comment on above: Performed By: #### L 501.2450, L500.3400 ####[facility] [address] [place], [address] T PROT 7.2 g/dL Normal 5.9-8.4 [facility] Comment on above: Performed By: #### L 501.2450, L500.3400 ####[facility] [address] [place], [address] MCV (mean corpuscular volume ) determinationOrdered By: Gage Sharma on 08-11-2024 MCV (RBC) [Entitic vol] 96.0 fL 81-99 [facility] Mean corpuscular hemoglobin (MCH) determinationOrdered By: Gage Sharma on 08-11-2024 MCH (RBC) [Entitic mass] 31.7 pg 27.0-32.0 [facility] Monocyte percentageOrdered B y: Gage Sharma on 08-11-2024 Monocytes/100 WBC (Bld) 4.9 % 0-10 [facility] Mucus LM Ql (Urine sed)Order ed By: Gage Sharma on 08-11-2024 Mucus Ql (Urine sed) 0 SEEN /hpf [facility] Neutrophil percentageOrdered By: Gage Sharma on 08-11-2024 Neutrophils/100 WBC (Bld) 80.2 % High 47-70 [facility] Nitrite Test strip Ql (U)Ord ered By: Gage Sharma on 08-11-2024 Nitrite Ql (U) Negative Negative [facility] No Panel InformationOrdered By: Gage Sharma on 08-11-2024 38 U/L High <32 [facility] Platelet countOrdered By: Jose Maria Sharma on 08-11-2024 Platelets (Bld) [#/Vol] 433 10*3/uL 150-450 [facility] Potassium measurement (mass/ volume)Ordered By: Gage Sharma on 08-11-2024 Potassium (Unsp spec) [Mass/Vol] 4.2 mmol/L 3.3-5.1 [facility] ,Urineon 08-11-2024 Beta HCG ( test) Ql (U) Negative Normal [facility] Comment on above: Result Comment: Very dilute urine specimens, as indicated by a low specificgravity, may not contain reimbursement representative levels of hCG.If is still suspected, a first morning urinespecimen should be collected 48 hours later and tested. Performed By: #### L 400.7600 ####[facility] [address] [place], [address] Protein Test strip Ql (U)Ord ered By: Gage Sharma on 08-11-2024 Protein Ql (U) 15 mg/dl High Negative [facility] RBC Auto (Bld) [#/Vol]Ordere d By: Gage Sharma on 08-11-2024 RBC (Bld) [#/Vol] 4.26 10*6/uL 4.2-5.4 [facility] Serum creatinine measurement (mass/volume)Ordered By: Gage Sharma on 08-11-2024 Creatinine [Mass/Vol] 0.74 mg/dL 0.70-1.20 [facility] Serum globulin measurementOr dered By: Gage Sharma on 08-11-2024 Globulin (S) [Mass/Vol] 3.1 g/dL 2.2-4.2 [facility] Serum glucose measurement (m ass/volume)Ordered By: Gage Sharma on 08-11-2024 Glucose [Mass/Vol] 90 mg/dL 70-99 [facility] Serum or plasma alanine hair otransferase (ALT) measurementOrdered By: Gage Sharma on 08-11-2024 ALT [Catalytic activity/Vol] 32 U/L <35 [facility] Serum or plasma albumin leslie urement (mass/volume)Ordered By: Gage Batista on 08-11-2024 Albumin [Mass/Vol] 4.0 g/dL 3.5-5.0 [facility] Serum or plasma alkaline delfin sphatase measurementOrdered By: Gagejuan Sharma on 08-11-2024 ALP [Catalytic activity/Vol] 173 U/L High 35-104 [facility] Serum or plasma calcium leslie urement (mass/volume)Ordered By: Gage Batista on 08-11-2024 Calcium [Mass/Vol] 9.5 mg/dL 7.6-11.0 [facility] Serum or plasma urea nitroge n measurement (mass/volume)Ordered By: Gage Sharma on 08-11-2024 Urea nitrogen [Mass/Vol] 9 mg/dL 4-19 [facility] Sodium levelOrdered By: Edd Sharma on 08-11-2024 Sodium [Moles/Vol] 137 mmol/L 133-145 [facility] Squamous epithelial cells de tection in urine sediment by light microscopyOrdered By: Gage Sharma on 08-11-2024 Epithelial cells.squamous LM Ql (Urine sed) 0-5 SEEN /hpf 5-10 [facility] Total proteinOrdered By: Zev Sharma on 08-11-2024 Protein [Mass/Vol] 7.2 g/dL 5.9-8.4 [facility] Urinalysis, Completeon 08-11 BACTERIA RARE Normal None Seen [facility] Comment on above: Order Comment: CLEAN CATCH Performed By: #### L 400.0001 ####[facility] [address] [place], [address] EPI,SQUAMOUS 0-5 SEEN Normal 5-10 [facility] Comment on above: Order Comment: CLEAN CATCH Performed By: #### L 400.0001 ####[facility] [address] [place], [place], [address] RBC 0-5 SEEN Normal 0-5 [facility] Comment on above: Order Comment: CLEAN CATCH Performed By: #### L 400.0001 ####[facility] [address] [place], [address] WBC 0-5 SEEN Normal 0-5 [facility] Comment on above: Order Comment: CLEAN CATCH Performed By: #### L 400.0001 ####[facility] [address] [place], [place], [address] Mucus Ql (Urine sed) 0 SEEN Normal [facility] Comment on above: Order Comment: CLEAN CATCH Performed By: #### L 400.0001 ####[facility] [address] [place], [place], [address] Urine clarityOrdered By: Zev Sharma on 08-11-2024 Clarity (U) Sl. Cloudy Clear [facility] Urine color determinationOrd ered By: Gage Sharma on 08-11-2024 Color (U) Yellow Yellow [facility] Urine glucose detectionOrder ed By: Gage Sharma on 08-11-2024 Glucose Ql (U) Normal mg/dl Normal [facility] Urine leukocyte esterase det ection by dipstickOrdered By: Gage Sharma on 08-11-2024 Leukocyte esterase Test strip Ql (U) Negative Negative [facility] Urine pHOrdered By: Gage Keller on 08-11-2024 pH (U) 7.0 [pH] 5.0 - 8.0 [facility] Urine testOrdered By: Gage Sharma on 08-11-2024 HCG ( test) Ql (U) Negative [facility] Urine sediment bacteria coun t by microscopy (number/high power field)Ordered By: [facility] Falls[facility] on 08-11-2024 Bacteria LM.HPF (Urine sed) [#/Area] RARE /hpf None Seen [facility] Urine specific gravity measu rementOrdered By: [facility] on 08-11-2024 Specific gravity (U) [Rel density] 1.010 1.002-1.03 0 [facility] Urine urobilinogen measureme ntOrdered By: [facility] on 08-11-2024 Urobilinogen Ql (U) Normal mg/dl Normal [facility] White blood cell (WBC) count Ordered By: [facility] on 08-11-2024 WBC (Bld) [#/Vol] 10.5 10*3/uL 4.4-11.0 [facility] White blood cell countOrdere d By: [facility] on 08-11-2024 White blood cell count 0-5 SEEN /hpf 0-5 [facility] 36on 08-10-2024 36 S: Patient called [facility] [place] with complaints of back and abdominal pain. B: Symptoms began 15 minutes prior to call. A: Patient states she had a small bowel movement, and afterwards, begin having severe 8/10 back pain, radiating to abdomen, with severe nausea. Patient states she has been taking Motrin for relief of pain. In audible distress throughout call. 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 Denies recent injury, fever, dysuria, urinary retention, incontinence, weakness, numbness, or hematuria. R: Patient instructed to proceed to evaluation of severe, sudden onset pain. Patient verbalizes understanding, and states she will proceed to [place] [facility], and that her SO will drive her. Reason for Disposition Patient sounds very sick or weak to the triager Protocols used: Back [id number] Normal [facility] ANCAon 08-10-2024 Atypical pANCA <1:20 Normal Neg:<1:20 [facility] Comment on above: Order Comment: Test( s) 786631-Cempdt, Serum or Plasmawas developed and its performance characteristicsdetermined by [facility]. It has not been cleared or approvedby the Food and Drug Administration. Result Comment: The atypical pANCA pattern has been observed in asignificant percentage of patients with ulcerative colitis,primary sclerosing cholangitis and autoimmune hepatitis. Performed By: #### L 503.5510, L3200.0500, L3100.5440, L5500.0410, L3100.3425, L503.6150, L3300.0100, L3100.1850, L504.2610, L100.9950, L3300.1200, L100.0100, L501.9520, L300.3900, L3410.2400, L3200.1100, L3100.6900, L101.9900, L500.4050, L501.6710, L501.9985, L3400.0700, L503.6550, L3300.1800 ####[facility] [address] [facility] [place], [place], [id number] Cytoplasmic Ab <1:20 Normal Neg:<1:20 [facility] Comment on above: Order Comment: Test( s) 560653-Xfsych, Serum or Plasmawas developed and its performance characteristicsdetermined by [employer]. It has not been cleared or approvedby the Food and Drug Administration. Performed By: #### L 503.5510, L3200.0500, L3100.5440, L5500.0410, L3100.3425, L503.6150, L3300.0100, L3100.1850, L504.2610, L100.9950, L3300.1200, L100.0100, L501.9520, L300.3900, L3410.2400, L3200.1100, L3100.6900, L101.9900, L500.4050, L501.6710, L501.9985, L3400.0700, L503.6550, L3300.1800 ####[facility] [address] [facility]. [place], [place], [id number] Perinuclear Ab. <1:20 Normal Neg:<1:20 [facility] Comment on above: Order Comment: Test( s) 656640-Kzeafw, Serum or Plasmawas developed and its performance characteristicsdetermined by [employer]. It has not been cleared or approvedby the Food and Drug Administration. Result Comment: The presence of positive fluorescence exhibiting P-ANCA orC-ANCA patterns alone is not specific for the diagnosis ofWegener's Granulomatosis (WG) or microscopic polyangiitis.Decisions about treatment should not be based solely onANCA IFA results. The International ANCA Group Consensusrecommends follow up testing of positive sera with both MN-3 and MPO-ANCA enzyme immunoassays. As many as 5% serumsamples are positive only by EIA. Ref. AM J Clin Ithcmp6830;111:507-513. Performed By: #### L 503.5510, L3200.0500, L3100.5440, L5500.0410, L3100.3425, L503.6150, L3300.0100, L3100.1850, L504.2610, L100.9950, L3300.1200, L100.0100, L501.9520, L300.3900, L3410.2400, L3200.1100, L3100.6900, L101.9900, L500.4050, L501.6710, L501.9985, L3400.0700, L503.6550, L3300.1800 ####[facility] [address] [place], [place], [address] Angiotensin Convert Enzymeon 08-10-2024 ANGIOT-CONV.ENZ 62 U/L Normal 14-82 [facility] Comment on above: Order Comment: Test( s) 479934-Czjyvv, Serum or Plasmawas developed and its performance characteristicsdetermined by [employer]. It has not been cleared or approvedby the Food and Drug Administration. Performed By: #### L 503.5510, L3200.0500, L3100.5440, L5500.0410, L3100.3425, L503.6150, L3300.0100, L3100.1850, L504.2610, L100.9950, L3300.1200, L100.0100, L501.9520, L300.3900, L3410.2400, L3200.1100, L3100.6900, L101.9900, L500.4050, L501.6710, L501.9985, L3400.0700, L503.6550, L3300.1800 ####[facility] [address] [facility] [place], [address] Celiac Disease Profileon ENDOMYSIAL IGA Negative Normal Negative [facility] Comment on above: Order Comment: Test( s) 996167-Ptunzx, Serum or Plasmawas developed and its performance characteristicsdetermined by [employer]. It has not been cleared or approvedby the Food and Drug Administration. Performed By: #### L 503.5510, L3200.0500, L3100.5440, L5500.0410, L3100.3425, L503.6150, L3300.0100, L3100.1850, L504.2610, L100.9950, L3300.1200, L100.0100, L501.9520, L300.3900, L3410.2400, L3200.1100, L3100.6900, L101.9900, L500.4050, L501.6710, L501.9985, L3400.0700, L503.6550, L3300.1800 ####[facility] [address] [facility]. [place], [place], [id number] tTG IGA <2 Normal 0-3 [facility] Comment on above: Order Comment: Test( s) 977417-Ocipij, Serum or Plasmawas developed and its performance characteristicsdetermined by [employer]. It has not been cleared or approvedby the Food and Drug Administration. Result Comment: Nega tive 0 - 3 Weak Positive 4 - 10 Positive >10 Tissue Transglutaminase (tTG) has been identified as the endomysial antigen. Studies have demonstr- ated that endomysial IgA antibodies have over 99% specificity for gluten sensitive enteropathy. Performed By: #### L 503.5510, L3200.0500, L3100.5440, L5500.0410, L3100.3425, L503.6150, L3300.0100, L3100.1850, L504.2610, L100.9950, L3300.1200, L100.0100, L501.9520, L300.3900, L3410.2400, L3200.1100, L3100.6900, L101.9900, L500.4050, L501.6710, L501.9985, L3400.0700, L503.6550, L3300.1800 ####[facility] [address] [facility] [place], [address] Ceruloplasminon 08-10-2024 CERULOPLASMIN 42.4 mg/dL High 19.0-39.0 [facility] Comment on above: Order Comment: Test( s) 036032-Stodej, Serum or Plasmawas developed and its performance characteristicsdetermined by [employer]. It has not been cleared or approvedby the Food and Drug Administration. Performed By: #### L 503.5510, L3200.0500, L3100.5440, L5500.0410, L3100.3425, L503.6150, L3300.0100, L3100.1850, L504.2610, L100.9950, L3300.1200, L100.0100, L501.9520, L300.3900, L3410.2400, L3200.1100, L3100.6900, L101.9900, L500.4050, L501.6710, L501.9985, L3400.0700, L503.6550, L3300.1800 ####[facility] [address] [facility] [place], [address] Copper, Serum or Plasmaon COPPER, SERUM 159 ug/dL High 80-158 [facility] Comment on above: Order Comment: Test( s) 884089-Cvaswx, Serum or Plasmawas developed and its performance characteristicsdetermined by [employer]. It has not been cleared or approvedby the Food and Drug Administration. Result Comment: Dete ction Limit = 5 Performed By: #### L 503.5510, L3200.0500, L3100.5440, L5500.0410, L3100.3425, L503.6150, L3300.0100, L3100.1850, L504.2610, L100.9950, L3300.1200, L100.0100, L501.9520, L300.3900, L3410.2400, L3200.1100, L3100.6900, L101.9900, L500.4050, L501.6710, L501.9985, L3400.0700, L503.6550, L3300.1800 ####[facility] [address] [place], [address] Gastrin, Serumon 08-10-2024 GASTRIN 17 pg/mL Normal 0-115 [facility] Comment on above: Order Comment: Test( s) 196800-Vvqbqf, Serum or Plasmawas developed and its performance characteristicsdetermined by [employer]. It has not been cleared or approvedby the Food and Drug Administration. Result Comment: [facility] Immulite 2000 Immunochemiluminometric assay (ICMA)Values obtained with different assay methods or kits cannotbe used interchangeably. Results cannot be interpreted asabsolute evidence of the presence or absence of malignantdisease. Performed By: #### L 503.5510, L3200.0500, L3100.5440, L5500.0410, L3100.3425, L503.6150, L3300.0100, L3100.1850, L504.2610, L100.9950, L3300.1200, L100.0100, L501.9520, L300.3900, L3410.2400, L3200.1100, L3100.6900, L101.9900, L500.4050, L501.6710, L501.9985, L3400.0700, L503.6550, L3300.1800 ####[facility] [address] [place], [address] Giardia Lamblia, Stool EIAon 08-10-2024 Giardia Stool Negative Normal Negative [facility] Comment on above: Result Comment: Perf ormed at: [facility] [id number] [place], [place] [id number] Director: Victor M Hargrove PhD, Phone: [phone] Performed By: #### L 7000.0700, M100.6796, M100.0605, M100.637, L7400.3300, M600.5000 ####[facility] [address] [place], [place], [id number] Haptoglobinon 08-10-2024 HAPTOGLOBIN 373 mg/dL High 42-296 [facility] Comment on above: Order Comment: Test( s) [id number]-Uxraow, Serum or Plasmawas developed and its performance characteristicsdetermined by [employer]. It has not been cleared or approvedby the Food and Drug Administration. Result Comment: Perf ormed at: [facility] [id number] [place], [place] [id number] Director: Victor M Hargrove PhD, Phone: [phone] at: [facility] [address] [id number] Director: Isac Kemp MD, Phone: [phone] Performed By: #### L 503.5510, L3200.0500, L3100.5440, L5500.0410, L3100.3425, L503.6150, L3300.0100, L3100.1850, L504.2610, L100.9950, L3300.1200, L100.0100, L501.9520, L300.3900, L3410.2400, L3200.1100, L3100.6900, L101.9900, L500.4050, L501.6710, L501.9985, L3400.0700, L503.6550, L3300.1800 ####[facility] [address] [place], [place], [id number] DAVID + Protein Elect, Serumon 08-10-2024 Albumin [Mass/Vol] 3.4 g/dL Normal 2.9-4.4 [facility] Comment on above: Order Comment: Test( s) 093202-Flahup, Serum or Plasmawas developed and its performance characteristicsdetermined by [facility]. It has not been cleared or approvedby the Food and Drug Administration.N Performed By: #### L 503.5510, L3200.0500, L3100.5440, L5500.0410, L3100.3425, L503.6150, L3300.0100, L3100.1850, L504.2610, L100.9950, L3300.1200, L100.0100, L501.9520, L300.3900, L3410.2400, L3200.1100, L3100.6900, L101.9900, L500.4050, L501.6710, L501.9985, L3400.0700, L503.6550, L3300.1800 ####[facility] [address] [facility]. [place], [place], [id number] Albumin/Globulin [Mass ratio] 1.0 {ratio} Normal 0.7-1.7 [facility] Comment on above: Order Comment: Test( s) 637636-Tciekp, Serum or Plasmawas developed and its performance characteristicsdetermined by [employer]. It has not been cleared or approvedby the Food and Drug Administration.N Performed By: #### L 503.5510, L3200.0500, L3100.5440, L5500.0410, L3100.3425, L503.6150, L3300.0100, L3100.1850, L504.2610, L100.9950, L3300.1200, L100.0100, L501.9520, L300.3900, L3410.2400, L3200.1100, L3100.6900, L101.9900, L500.4050, L501.6710, L501.9985, L3400.0700, L503.6550, L3300.1800 ####[facility] [address] [facility]. [place], [place], [phone] QJWQK-7-SVEP 0.2 g/dL Normal 0.0-0.4 [facility] Comment on above: Order Comment: Test( s) 810851-Abhfqp, Serum or Plasmawas developed and its performance characteristicsdetermined by [employer]. It has not been cleared or approvedby the Food and Drug Administration.N Performed By: #### L 503.5510, L3200.0500, L3100.5440, L5500.0410, L3100.3425, L503.6150, L3300.0100, L3100.1850, L504.2610, L100.9950, L3300.1200, L100.0100, L501.9520, L300.3900, L3410.2400, L3200.1100, L3100.6900, L101.9900, L500.4050, L501.6710, L501.9985, L3400.0700, L503.6550, L3300.1800 ####[facility] [address] [facility]. [place], [place], [phone] DJGTP-9-KUGZ 1.1 g/dL High 0.4-1.0 [facility] Comment on above: Order Comment: Test( s) 142288-Hwiamz, Serum or Plasmawas developed and its performance characteristicsdetermined by [facility]. It has not been cleared or approvedby the Food and Drug Administration.N Performed By: #### L 503.5510, L3200.0500, L3100.5440, L5500.0410, L3100.3425, L503.6150, L3300.0100, L3100.1850, L504.2610, L100.9950, L3300.1200, L100.0100, L501.9520, L300.3900, L3410.2400, L3200.1100, L3100.6900, L101.9900, L500.4050, L501.6710, L501.9985, L3400.0700, L503.6550, L3300.1800 ####[facility] [address] [facility]. [place], [place], [phone] BETA GLOBULIN 1.2 g/dL Normal 0.7-1.3 [facility] Comment on above: Order Comment: Test( s) 509374-Fejbpg, Serum or Plasmawas developed and its performance characteristicsdetermined by [employer]. It has not been cleared or approvedby the Food and Drug Administration.N Performed By: #### L 503.5510, L3200.0500, L3100.5440, L5500.0410, L3100.3425, L503.6150, L3300.0100, L3100.1850, L504.2610, L100.9950, L3300.1200, L100.0100, L501.9520, L300.3900, L3410.2400, L3200.1100, L3100.6900, L101.9900, L500.4050, L501.6710, L501.9985, L3400.0700, L503.6550, L3300.1800 ####[facility] [address] [facility]. [place], [place], [phone] GAMMA GLOBULIN 1.0 g/dL Normal 0.4-1.8 [facility] Comment on above: Order Comment: Test( s) 355168-Chyzvq, Serum or Plasmawas developed and its performance characteristicsdetermined by [employer]. It has not been cleared or approvedby the Food and Drug Administration.N Performed By: #### L 503.5510, L3200.0500, L3100.5440, L5500.0410, L3100.3425, L503.6150, L3300.0100, L3100.1850, L504.2610, L100.9950, L3300.1200, L100.0100, L501.9520, L300.3900, L3410.2400, L3200.1100, L3100.6900, L101.9900, L500.4050, L501.6710, L501.9985, L3400.0700, L503.6550, L3300.1800 ####[facility] [address] [facility]. [place], [place], [phone] Globulin (S) [Mass/Vol] 3.5 g/dL Normal 2.2-3.9 [facility] Comment on above: Order Comment: Test( s) 971147-Ftesht, Serum or Plasmawas developed and its performance characteristicsdetermined by [facility]. It has not been cleared or approvedby the Food and Drug Administration.N Performed By: #### L 503.5510, L3200.0500, L3100.5440, L5500.0410, L3100.3425, L503.6150, L3300.0100, L3100.1850, L504.2610, L100.9950, L3300.1200, L100.0100, L501.9520, L300.3900, L3410.2400, L3200.1100, L3100.6900, L101.9900, L500.4050, L501.6710, L501.9985, L3400.0700, L503.6550, L3300.1800 ####[facility] [address] [place], [place], [phone] DAVID RESULT,S Comment Normal . [facility] Comment on above: Order Comment: Test( s) 920912-Ssrzcs, Serum or Plasmawas developed and its performance characteristicsdetermined by [employer]. It has not been cleared or approvedby the Food and Drug Administration.N Result Comment: No m onoclonality detected. Performed By: #### L 503.5510, L3200.0500, L3100.5440, L5500.0410, L3100.3425, L503.6150, L3300.0100, L3100.1850, L504.2610, L100.9950, L3300.1200, L100.0100, L501.9520, L300.3900, L3410.2400, L3200.1100, L3100.6900, L101.9900, L500.4050, L501.6710, L501.9985, L3400.0700, L503.6550, L3300.1800 ####[facility] [address] [place], [address] IMMUNOGLOB A QN 134 mg/dL Normal 87-352 [facility] Comment on above: Order Comment: Test( s) 875881-Dyelkv, Serum or Plasmawas developed and its performance characteristicsdetermined by [employer]. It has not been cleared or approvedby the Food and Drug Administration.N Performed By: #### L 503.5510, L3200.0500, L3100.5440, L5500.0410, L3100.3425, L503.6150, L3300.0100, L3100.1850, L504.2610, L100.9950, L3300.1200, L100.0100, L501.9520, L300.3900, L3410.2400, L3200.1100, L3100.6900, L101.9900, L500.4050, L501.6710, L501.9985, L3400.0700, L503.6550, L3300.1800 ####[facility] [address] [facility] [address] [place], [place], [address] IMMUNOGLOB M QN 217 mg/dL Normal 26-217 [facility] Comment on above: Order Comment: Test( s) 284038-Lkupmx, Serum or Plasmawas developed and its performance characteristicsdetermined by [employer]. It has not been cleared or approvedby the Food and Drug Administration.N Performed By: #### L 503.5510, L3200.0500, L3100.5440, L5500.0410, L3100.3425, L503.6150, L3300.0100, L3100.1850, L504.2610, L100.9950, L3300.1200, L100.0100, L501.9520, L300.3900, L3410.2400, L3200.1100, L3100.6900, L101.9900, L500.4050, L501.6710, L501.9985, L3400.0700, L503.6550, L3300.1800 ####[facility] [address] [place], [address] M-Jayme Not Observed Normal Not Observed [facility] Comment on above: Order Comment: Test( s) 303069-Aaipjl, Serum or Plasmawas developed and its performance characteristicsdetermined by [facility]. It has not been cleared or approvedby the Food and Drug Administration.N Performed By: #### L 503.5510, L3200.0500, L3100.5440, L5500.0410, L3100.3425, L503.6150, L3300.0100, L3100.1850, L504.2610, L100.9950, L3300.1200, L100.0100, L501.9520, L300.3900, L3410.2400, L3200.1100, L3100.6900, L101.9900, L500.4050, L501.6710, L501.9985, L3400.0700, L503.6550, L3300.1800 ####[facility] [address] [facility] [address] [place], [place], [phone] NOTE: Comment Normal . [facility] Comment on above: Order Comment: Test( s) 409790-Erugfw, Serum or Plasmawas developed and its performance characteristicsdetermined by [facility]. It has not been cleared or approvedby the Food and Drug Administration.N Result Comment: Prot ein electrophoresis scan will follow via computer,mail, or interactive media designer delivery. Performed By: #### L 503.5510, L3200.0500, L3100.5440, L5500.0410, L3100.3425, L503.6150, L3300.0100, L3100.1850, L504.2610, L100.9950, L3300.1200, L100.0100, L501.9520, L300.3900, L3410.2400, L3200.1100, L3100.6900, L101.9900, L500.4050, L501.6710, L501.9985, L3400.0700, L503.6550, L3300.1800 ####[facility] [address] [facility] [address] [place], [place], [phone] Protein [Mass/Vol] 6.9 g/dL Normal 6.0-8.5 [facility] Comment on above: Order Comment: Test( s) 078836-Lycwmh, Serum or Plasmawas developed and its performance characteristicsdetermined by [employer]. It has not been cleared or approvedby the Food and Drug Administration.N Performed By: #### L 503.5510, L3200.0500, L3100.5440, L5500.0410, L3100.3425, L503.6150, L3300.0100, L3100.1850, L504.2610, L100.9950, L3300.1200, L100.0100, L501.9520, L300.3900, L3410.2400, L3200.1100, L3100.6900, L101.9900, L500.4050, L501.6710, L501.9985, L3400.0700, L503.6550, L3300.1800 ####[facility] [address] [facility]. [place], [place], [address] IgG Subclasseson 08-10-2024 IgG, SUBCLASS 1 509 mg/dL Normal 248-810 [facility] Comment on above: Order Comment: Test( s) 272807-Efddqa, Serum or Plasmawas developed and its performance characteristicsdetermined by [employer]. It has not been cleared or approvedby the Food and Drug Administration. Performed By: #### L 503.5510, L3200.0500, L3100.5440, L5500.0410, L3100.3425, L503.6150, L3300.0100, L3100.1850, L504.2610, L100.9950, L3300.1200, L100.0100, L501.9520, L300.3900, L3410.2400, L3200.1100, L3100.6900, L101.9900, L500.4050, L501.6710, L501.9985, L3400.0700, L503.6550, L3300.1800 ####[facility] [address] [facility]. [place], [place], [phone] IgG, SUBCLASS 2 168 mg/dL Normal 130-555 [facility] Comment on above: Order Comment: Test( s) 197754-Tvmovc, Serum or Plasmawas developed and its performance characteristicsdetermined by [employer]. It has not been cleared or approvedby the Food and Drug Administration. Performed By: #### L 503.5510, L3200.0500, L3100.5440, L5500.0410, L3100.3425, L503.6150, L3300.0100, L3100.1850, L504.2610, L100.9950, L3300.1200, L100.0100, L501.9520, L300.3900, L3410.2400, L3200.1100, L3100.6900, L101.9900, L500.4050, L501.6710, L501.9985, L3400.0700, L503.6550, L3300.1800 ####[facility] [address] [facility] [place], [address] IgG, SUBCLASS 3 73 mg/dL Normal 15-102 [facility] Comment on above: Order Comment: Test( s) 745317-Wnpigj, Serum or Plasmawas developed and its performance characteristicsdetermined by [employer]. It has not been cleared or approvedby the Food and Drug Administration. Performed By: #### L 503.5510, L3200.0500, L3100.5440, L5500.0410, L3100.3425, L503.6150, L3300.0100, L3100.1850, L504.2610, L100.9950, L3300.1200, L100.0100, L501.9520, L300.3900, L3410.2400, L3200.1100, L3100.6900, L101.9900, L500.4050, L501.6710, L501.9985, L3400.0700, L503.6550, L3300.1800 ####[facility] [address] [facility] [place], [address] IgG, SUBCLASS 4 17 mg/dL Normal 2-96 [facility] Comment on above: Order Comment: Test( s) 989083-Zccems, Serum or Plasmawas developed and its performance characteristicsdetermined by [facility]. It has not been cleared or approvedby the Food and Drug Administration. Performed By: #### L 503.5510, L3200.0500, L3100.5440, L5500.0410, L3100.3425, L503.6150, L3300.0100, L3100.1850, L504.2610, L100.9950, L3300.1200, L100.0100, L501.9520, L300.3900, L3410.2400, L3200.1100, L3100.6900, L101.9900, L500.4050, L501.6710, L501.9985, L3400.0700, L503.6550, L3300.1800 ####[facility] [address] [place], [address] IGG,QUANT 945 mg/dL Normal 586-1602 [facility] Comment on above: Order Comment: Test( s) 873573-Rbzcie, Serum or Plasmawas developed and its performance characteristicsdetermined by [employer]. It has not been cleared or approvedby the Food and Drug Administration. Performed By: #### L 503.5510, L3200.0500, L3100.5440, L5500.0410, L3100.3425, L503.6150, L3300.0100, L3100.1850, L504.2610, L100.9950, L3300.1200, L100.0100, L501.9520, L300.3900, L3410.2400, L3200.1100, L3100.6900, L101.9900, L500.4050, L501.6710, L501.9985, L3400.0700, L503.6550, L3300.1800 ####[facility] [address] [facility] [place], [address] Immunoglobulins G/A/M/Librado IMMUNOGLOB E QN 122 IU/mL Normal 6-495 [facility] Comment on above: Order Comment: Test( s) 274018-Ycvfxd, Serum or Plasmawas developed and its performance characteristicsdetermined by [employer]. It has not been cleared or approvedby the Food and Drug Administration.N Performed By: #### L 503.5510, L3200.0500, L3100.5440, L5500.0410, L3100.3425, L503.6150, L3300.0100, L3100.1850, L504.2610, L100.9950, L3300.1200, L100.0100, L501.9520, L300.3900, L3410.2400, L3200.1100, L3100.6900, L101.9900, L500.4050, L501.6710, L501.9985, L3400.0700, L503.6550, L3300.1800 ####[facility] [address] [place], [place], [phone] Amylaseon 08-09-2024 TAWANNA 19 U/L Low 28-100 [facility] Comment on above: Order Comment: ADD O NTO YESTERDAYS BLOOD Performed By: #### L 501.2450, L501.2400 ####[facility] [address] [place], [address] CDIFF (PCR)on 08-09-2024 CDIFF Pending 027 027 NAP1-B1 Presumptive Negative *for epidemiolologic???use C. Diff PCR Negative- No toxigenic C. Diff Detected Normal [facility] Comment on above: Performed By: #### L 7000.0700, M100.6796, M100.0605, M100.637, L7400.3300, M600.5000 ####[facility] [address] [place], [place], [phone] Calprotectin stoolOrdered By : Bárbara Ureña on 08-09-2024 Calprotectin stool 13 ug/g 0-120 [facility] Clostridium difficile detect ion by polymerase chain reactionOrdered By: Bárbara Ureña on 08-09-2024 C. difficile DNA BIMAL+probe Ql (Unsp spec) [facility] ENTERIC PATHOGEN PANEL STOOL on 08-09-2024 EP PANEL Normal [facility] Comment on above: Performed By: #### L 7000.0700, M100.6796, M100.0605, M100.637, L7400.3300, M600.5000 ####[facility] [address] [place], [address] Giardia lamblia ag stool EIA Ordered By: Bárbara Ureña on 08-09-2024 G. lamblia Ag IA Ql (Stl) Negative Negative [facility] Lipaseon 08-09-2024 Lipase [Catalytic activity/Vol] 24 U/L Normal 13-75 [facility] Comment on above: Order Comment: ADD O NTO YESTERDAYS BLOOD Result Comment: Plea note:LIPASE revised reference range effective 22.New Lipase methodology. Expected to produce lower valuesthan the previous assay method.NEW Reference Range: 13 - 75 U/L Performed By: #### L 501.2450, L501.2400 ####[facility] [address] [place], [address] Serum or plasma amylase leslie urement (enzymatic activity/volume)Ordered By: Quang Myles on 08-09-2024 Amylase [Catalytic activity/Vol] 19 U/L Low 28-100 [facility] Stool Lactoferrin/WBCon 07-13 WBCST Normal Reference Ran ge = Negative Fecal WBC Lactoferrin Negative: No Fecal WBC Lactoferrin present Normal [facility] Comment on above: Performed By: #### L 7000.0700, M100.6796, M100.0605, M100.637, L7400.3300, M600.5000 ####[facility] [address] [place], [address] Stool lactoferrin detection by immunoassayOrdered By: Bárbara Ureña on 08-09-2024 Lactoferrin IA Ql (Stl) [facility] Absolute lymphocyte countOrd ered By: Quang Greg on 08-08-2024 Lymphocytes Auto (Unsp spec) [#/Vol] 1.28 10*3/uL 0.83-4.51 [facility] Albumin Elph [Mass/Vol]Order ed By: Quang Myles on 08-08-2024 Albumin [Mass/Vol] 3.4 g/dL 2.9-4.4 [facility] Ammoniaon 08-08-2024 Ammonia (P) [Moles/Vol] 36.2 umol/L Normal 11-51 [facility] Comment on above: Performed By: #### L 503.5510, L3200.0500, L3100.5440, L5500.0410, L3100.3425, L503.6150, L3300.0100, L3100.1850, L504.2610, L100.9950, L3300.1200, L100.0100, L501.9520, L300.3900, L3410.2400, L3200.1100, L3100.6900, L101.9900, L500.4050, L501.6710, L501.9985, L3400.0700, L503.6550, L3300.1800 ####[facility] [address] [place], [place], [phone] Anion gap in Serum or Plasma Ordered By: Quang Myles on 08-08-2024 Anion gap [Moles/Vol] 11 mmol/L 5-15 [facility] Automated lymphocyte count a s percentage of total leukocytesOrdered By: Quang Myles on 08-08-2024 Lymphocytes/100 WBC Auto (Unsp spec) 13.9 % Low 19-41 [facility] BUN/creatinine ratioOrdered By: Quang Myles on 08-08-2024 Urea nitrogen/Creatinine [Mass ratio] 12.1 mg/mg 10-20 [facility] Basophil percentageOrdered B y: Quang Myles on 08-08-2024 Basophils/100 WBC (Bld) 0.9 % 0-1 [facility] Bilirubin, totalOrdered By: Quang Myles on 08-08-2024 Bilirubin [Mass/Vol] 0.23 mg/dL 0.00-1.30 [facility] CBC W/Diff, Automatedon 07-13 Absolute Lymph 1.28 X10 3/uL Normal 0.83-4.51 [facility] Comment on above: Performed By: #### L 503.5510, L3200.0500, L3100.5440, L5500.0410, L3100.3425, L503.6150, L3300.0100, L3100.1850, L504.2610, L100.9950, L3300.1200, L100.0100, L501.9520, L300.3900, L3410.2400, L3200.1100, L3100.6900, L101.9900, L500.4050, L501.6710, L501.9985, L3400.0700, L503.6550, L3300.1800 ####[facility] [address] [place], [place], [phone]) Absolute Neut 7.0 X10 3/uL Normal 2.0-7.7 [facility] Comment on above: Performed By: #### L 503.5510, L3200.0500, L3100.5440, L5500.0410, L3100.3425, L503.6150, L3300.0100, L3100.1850, L504.2610, L100.9950, L3300.1200, L100.0100, L501.9520, L300.3900, L3410.2400, L3200.1100, L3100.6900, L101.9900, L500.4050, L501.6710, L501.9985, L3400.0700, L503.6550, L3300.1800 ####[facility] [address] [place], [place], [phone]) Basophils/100 WBC (Bld) 0.9 % Normal 0-1 [facility] Comment on above: Performed By: #### L 503.5510, L3200.0500, L3100.5440, L5500.0410, L3100.3425, L503.6150, L3300.0100, L3100.1850, L504.2610, L100.9950, L3300.1200, L100.0100, L501.9520, L300.3900, L3410.2400, L3200.1100, L3100.6900, L101.9900, L500.4050, L501.6710, L501.9985, L3400.0700, L503.6550, L3300.1800 ####[facility] [address] [facility] [place], [address] Eosinophils/100 WBC (Bld) 3.8 % Normal 0-5 [facility] Comment on above: Performed By: #### L 503.5510, L3200.0500, L3100.5440, L5500.0410, L3100.3425, L503.6150, L3300.0100, L3100.1850, L504.2610, L100.9950, L3300.1200, L100.0100, L501.9520, L300.3900, L3410.2400, L3200.1100, L3100.6900, L101.9900, L500.4050, L501.6710, L501.9985, L3400.0700, L503.6550, L3300.1800 ####[facility] [address] [facility] [place], [address] Erythrocyte distribution width (RBC) [Ratio] 13.1 % Normal 11.6-14.6 [facility] Comment on above: Performed By: #### L 503.5510, L3200.0500, L3100.5440, L5500.0410, L3100.3425, L503.6150, L3300.0100, L3100.1850, L504.2610, L100.9950, L3300.1200, L100.0100, L501.9520, L300.3900, L3410.2400, L3200.1100, L3100.6900, L101.9900, L500.4050, L501.6710, L501.9985, L3400.0700, L503.6550, L3300.1800 ####[facility] [address] [place], [place], [phone] Hematocrit (Bld) [Volume fraction] 44.1 % Normal 37-47 [facility] Comment on above: Performed By: #### L 503.5510, L3200.0500, L3100.5440, L5500.0410, L3100.3425, L503.6150, L3300.0100, L3100.1850, L504.2610, L100.9950, L3300.1200, L100.0100, L501.9520, L300.3900, L3410.2400, L3200.1100, L3100.6900, L101.9900, L500.4050, L501.6710, L501.9985, L3400.0700, L503.6550, L3300.1800 ####[facility] [address] [facility] [address] [place], [place], [phone] Hemoglobin (Bld) [Mass/Vol] 14.7 g/dL Normal 12.0-15.0 [facility] Comment on above: Performed By: #### L 503.5510, L3200.0500, L3100.5440, L5500.0410, L3100.3425, L503.6150, L3300.0100, L3100.1850, L504.2610, L100.9950, L3300.1200, L100.0100, L501.9520, L300.3900, L3410.2400, L3200.1100, L3100.6900, L101.9900, L500.4050, L501.6710, L501.9985, L3400.0700, L503.6550, L3300.1800 ####[facility] [address] [facility] [place], [address] IG% 0.500 Normal 0.0-0.9 [facility] Comment on above: Result Comment: IG% - Immature Granulocytes (promyelocytes, myelocytes andmetamyelocytes) > 1% indicates that a LEFT SHIFT is Present. Performed By: #### L 503.5510, L3200.0500, L3100.5440, L5500.0410, L3100.3425, L503.6150, L3300.0100, L3100.1850, L504.2610, L100.9950, L3300.1200, L100.0100, L501.9520, L300.3900, L3410.2400, L3200.1100, L3100.6900, L101.9900, L500.4050, L501.6710, L501.9985, L3400.0700, L503.6550, L3300.1800 ####[facility] [address] [place], [address] Lymphocytes/100 WBC (Bld) 13.9 % Low 19-41 [facility] Comment on above: Performed By: #### L 503.5510, L3200.0500, L3100.5440, L5500.0410, L3100.3425, L503.6150, L3300.0100, L3100.1850, L504.2610, L100.9950, L3300.1200, L100.0100, L501.9520, L300.3900, L3410.2400, L3200.1100, L3100.6900, L101.9900, L500.4050, L501.6710, L501.9985, L3400.0700, L503.6550, L3300.1800 ####[facility] [address] [place], [address] MCH (RBC) [Entitic mass] 32.0 pg Normal 27.0-32.0 [facility] Comment on above: Performed By: #### L 503.5510, L3200.0500, L3100.5440, L5500.0410, L3100.3425, L503.6150, L3300.0100, L3100.1850, L504.2610, L100.9950, L3300.1200, L100.0100, L501.9520, L300.3900, L3410.2400, L3200.1100, L3100.6900, L101.9900, L500.4050, L501.6710, L501.9985, L3400.0700, L503.6550, L3300.1800 ####[facility] [address] [facility]. [place], [place], [id number] MCHC (RBC) [Mass/Vol] 33.3 g/dL Normal 32-36 [facility] Comment on above: Performed By: #### L 503.5510, L3200.0500, L3100.5440, L5500.0410, L3100.3425, L503.6150, L3300.0100, L3100.1850, L504.2610, L100.9950, L3300.1200, L100.0100, L501.9520, L300.3900, L3410.2400, L3200.1100, L3100.6900, L101.9900, L500.4050, L501.6710, L501.9985, L3400.0700, L503.6550, L3300.1800 ####[facility] [address] [facility]. [place], [place], [id number] MCV (RBC) [Entitic vol] 95.9 fL Normal 81-99 [facility] Comment on above: Performed By: #### L 503.5510, L3200.0500, L3100.5440, L5500.0410, L3100.3425, L503.6150, L3300.0100, L3100.1850, L504.2610, L100.9950, L3300.1200, L100.0100, L501.9520, L300.3900, L3410.2400, L3200.1100, L3100.6900, L101.9900, L500.4050, L501.6710, L501.9985, L3400.0700, L503.6550, L3300.1800 ####[facility] [address] [facility] [place], [address] Monocytes/100 WBC (Bld) 5.4 % Normal 0-10 [facility] Comment on above: Performed By: #### L 503.5510, L3200.0500, L3100.5440, L5500.0410, L3100.3425, L503.6150, L3300.0100, L3100.1850, L504.2610, L100.9950, L3300.1200, L100.0100, L501.9520, L300.3900, L3410.2400, L3200.1100, L3100.6900, L101.9900, L500.4050, L501.6710, L501.9985, L3400.0700, L503.6550, L3300.1800 ####[facility] [address] [facility]. [place], [place], [id number] Neutrophils/100 WBC (Bld) 75.5 % High 47-70 [facility] Comment on above: Performed By: #### L 503.5510, L3200.0500, L3100.5440, L5500.0410, L3100.3425, L503.6150, L3300.0100, L3100.1850, L504.2610, L100.9950, L3300.1200, L100.0100, L501.9520, L300.3900, L3410.2400, L3200.1100, L3100.6900, L101.9900, L500.4050, L501.6710, L501.9985, L3400.0700, L503.6550, L3300.1800 ####[facility] [address] [facility]. [place], [place], [id number](454) Nucleated RBC (Bld) [#/Vol] 0 10*3/uL Normal 0-5 [facility] Comment on above: Performed By: #### L 503.5510, L3200.0500, L3100.5440, L5500.0410, L3100.3425, L503.6150, L3300.0100, L3100.1850, L504.2610, L100.9950, L3300.1200, L100.0100, L501.9520, L300.3900, L3410.2400, L3200.1100, L3100.6900, L101.9900, L500.4050, L501.6710, L501.9985, L3400.0700, L503.6550, L3300.1800 ####[facility] [address] [facility]. [place], [place], [phone] Platelet mean volume (Bld) [Entitic vol] 9.9 fL Normal 6.2-12.0 [facility] Comment on above: Performed By: #### L 503.5510, L3200.0500, L3100.5440, L5500.0410, L3100.3425, L503.6150, L3300.0100, L3100.1850, L504.2610, L100.9950, L3300.1200, L100.0100, L501.9520, L300.3900, L3410.2400, L3200.1100, L3100.6900, L101.9900, L500.4050, L501.6710, L501.9985, L3400.0700, L503.6550, L3300.1800 ####[facility] [address] [place], [place], [address] Platelets (Bld) [#/Vol] 375 10*3/uL Normal 150-450 [facility] Comment on above: Performed By: #### L 503.5510, L3200.0500, L3100.5440, L5500.0410, L3100.3425, L503.6150, L3300.0100, L3100.1850, L504.2610, L100.9950, L3300.1200, L100.0100, L501.9520, L300.3900, L3410.2400, L3200.1100, L3100.6900, L101.9900, L500.4050, L501.6710, L501.9985, L3400.0700, L503.6550, L3300.1800 ####[facility] [address] [place], [place], [phone] RBC (Bld) [#/Vol] 4.60 10*6/uL Normal 4.2-5.4 [facility] Comment on above: Performed By: #### L 503.5510, L3200.0500, L3100.5440, L5500.0410, L3100.3425, L503.6150, L3300.0100, L3100.1850, L504.2610, L100.9950, L3300.1200, L100.0100, L501.9520, L300.3900, L3410.2400, L3200.1100, L3100.6900, L101.9900, L500.4050, L501.6710, L501.9985, L3400.0700, L503.6550, L3300.1800 ####[facility] [address] [facility] [address] [place], [place], [phone] RDW SD 46.1 fl High 35.1-43.9 [facility] Comment on above: Performed By: #### L 503.5510, L3200.0500, L3100.5440, L5500.0410, L3100.3425, L503.6150, L3300.0100, L3100.1850, L504.2610, L100.9950, L3300.1200, L100.0100, L501.9520, L300.3900, L3410.2400, L3200.1100, L3100.6900, L101.9900, L500.4050, L501.6710, L501.9985, L3400.0700, L503.6550, L3300.1800 ####[facility] [address] [place], [address] WBC (Bld) [#/Vol] 9.2 10*3/uL Normal 4.4-11.0 [facility] Comment on above: Performed By: #### L 503.5510, L3200.0500, L3100.5440, L5500.0410, L3100.3425, L503.6150, L3300.0100, L3100.1850, L504.2610, L100.9950, L3300.1200, L100.0100, L501.9520, L300.3900, L3410.2400, L3200.1100, L3100.6900, L101.9900, L500.4050, L501.6710, L501.9985, L3400.0700, L503.6550, L3300.1800 ####[facility] [address] [place], [address] CRPon 08-08-2024 C-REACTIVE PROT 16.80 mg/L High 0.0-3.0 [facility] Comment on above: Performed By: #### L 503.5510, L3200.0500, L3100.5440, L5500.0410, L3100.3425, L503.6150, L3300.0100, L3100.1850, L504.2610, L100.9950, L3300.1200, L100.0100, L501.9520, L300.3900, L3410.2400, L3200.1100, L3100.6900, L101.9900, L500.4050, L501.6710, L501.9985, L3400.0700, L503.6550, L3300.1800 ####[facility] [address] [place], [address] Carbon dioxide, total [Moles /volume] in Central venous bloodOrdered By: Quang Myles on 08-08-2024 CO2 [Moles/Vol] 21.1 mmol/L 21.0-32.0 [facility] Chloride assayOrdered By: Ra treva Myles on 08-08-2024 Chloride [Moles/Vol] 106 mmol/L 98-108 [facility] Comprehensive Metabolic Prof ilon 08-08-2024 Albumin [Mass/Vol] 3.9 g/dL Normal 3.5-5.0 [facility] Comment on above: Performed By: #### L 503.5510, L3200.0500, L3100.5440, L5500.0410, L3100.3425, L503.6150, L3300.0100, L3100.1850, L504.2610, L100.9950, L3300.1200, L100.0100, L501.9520, L300.3900, L3410.2400, L3200.1100, L3100.6900, L101.9900, L500.4050, L501.6710, L501.9985, L3400.0700, L503.6550, L3300.1800 ####[facility] [address] [place], [address] Albumin/Globulin [Mass ratio] 1.1 {ratio} Normal 0.9-2.4 [facility] Comment on above: Performed By: #### L 503.5510, L3200.0500, L3100.5440, L5500.0410, L3100.3425, L503.6150, L3300.0100, L3100.1850, L504.2610, L100.9950, L3300.1200, L100.0100, L501.9520, L300.3900, L3410.2400, L3200.1100, L3100.6900, L101.9900, L500.4050, L501.6710, L501.9985, L3400.0700, L503.6550, L3300.1800 ####[facility] [address] [place], [address] ALK PHOS 155 U/L High 35-104 [facility] Comment on above: Performed By: #### L 503.5510, L3200.0500, L3100.5440, L5500.0410, L3100.3425, L503.6150, L3300.0100, L3100.1850, L504.2610, L100.9950, L3300.1200, L100.0100, L501.9520, L300.3900, L3410.2400, L3200.1100, L3100.6900, L101.9900, L500.4050, L501.6710, L501.9985, L3400.0700, L503.6550, L3300.1800 ####[facility] [address] [place], [place], [phone] ALT [Catalytic activity/Vol] 37 U/L High <=34 [facility] Comment on above: Performed By: #### L 503.5510, L3200.0500, L3100.5440, L5500.0410, L3100.3425, L503.6150, L3300.0100, L3100.1850, L504.2610, L100.9950, L3300.1200, L100.0100, L501.9520, L300.3900, L3410.2400, L3200.1100, L3100.6900, L101.9900, L500.4050, L501.6710, L501.9985, L3400.0700, L503.6550, L3300.1800 ####[facility] [address] [place], [place], [phone] AST [Catalytic activity/Vol] 43 U/L High <=31 [facility] Comment on above: Performed By: #### L 503.5510, L3200.0500, L3100.5440, L5500.0410, L3100.3425, L503.6150, L3300.0100, L3100.1850, L504.2610, L100.9950, L3300.1200, L100.0100, L501.9520, L300.3900, L3410.2400, L3200.1100, L3100.6900, L101.9900, L500.4050, L501.6710, L501.9985, L3400.0700, L503.6550, L3300.1800 ####[facility] [address] [place], [place], [phone] Bilirubin [Mass/Vol] 0.23 mg/dL Normal 0.00-1.30 [facility] Comment on above: Performed By: #### L 503.5510, L3200.0500, L3100.5440, L5500.0410, L3100.3425, L503.6150, L3300.0100, L3100.1850, L504.2610, L100.9950, L3300.1200, L100.0100, L501.9520, L300.3900, L3410.2400, L3200.1100, L3100.6900, L101.9900, L500.4050, L501.6710, L501.9985, L3400.0700, L503.6550, L3300.1800 ####[facility] [address] [place], [place], [phone] BUN/CRE 12.1 RATIO Normal 10-20 [facility] Comment on above: Performed By: #### L 503.5510, L3200.0500, L3100.5440, L5500.0410, L3100.3425, L503.6150, L3300.0100, L3100.1850, L504.2610, L100.9950, L3300.1200, L100.0100, L501.9520, L300.3900, L3410.2400, L3200.1100, L3100.6900, L101.9900, L500.4050, L501.6710, L501.9985, L3400.0700, L503.6550, L3300.1800 ####[facility] [address] [place], [place], [phone]) Calcium [Mass/Vol] 9.7 mg/dL Normal 7.6-11.0 [facility] Comment on above: Performed By: #### L 503.5510, L3200.0500, L3100.5440, L5500.0410, L3100.3425, L503.6150, L3300.0100, L3100.1850, L504.2610, L100.9950, L3300.1200, L100.0100, L501.9520, L300.3900, L3410.2400, L3200.1100, L3100.6900, L101.9900, L500.4050, L501.6710, L501.9985, L3400.0700, L503.6550, L3300.1800 ####[facility] [address] [facility]. [place], [place], [phone] Chloride [Moles/Vol] 106 mmol/L Normal 98-108 [facility] Comment on above: Performed By: #### L 503.5510, L3200.0500, L3100.5440, L5500.0410, L3100.3425, L503.6150, L3300.0100, L3100.1850, L504.2610, L100.9950, L3300.1200, L100.0100, L501.9520, L300.3900, L3410.2400, L3200.1100, L3100.6900, L101.9900, L500.4050, L501.6710, L501.9985, L3400.0700, L503.6550, L3300.1800 ####[facility] [address] [facility] [place], [place], [phone] CO2 [Moles/Vol] 21.1 mmol/L Normal 21.0-32.0 [facility] Comment on above: Performed By: #### L 503.5510, L3200.0500, L3100.5440, L5500.0410, L3100.3425, L503.6150, L3300.0100, L3100.1850, L504.2610, L100.9950, L3300.1200, L100.0100, L501.9520, L300.3900, L3410.2400, L3200.1100, L3100.6900, L101.9900, L500.4050, L501.6710, L501.9985, L3400.0700, L503.6550, L3300.1800 ####[facility] [address] [place], [place], [phone] Creatinine [Mass/Vol] 0.71 mg/dL Normal 0.70-1.20 [facility] Comment on above: Performed By: #### L 503.5510, L3200.0500, L3100.5440, L5500.0410, L3100.3425, L503.6150, L3300.0100, L3100.1850, L504.2610, L100.9950, L3300.1200, L100.0100, L501.9520, L300.3900, L3410.2400, L3200.1100, L3100.6900, L101.9900, L500.4050, L501.6710, L501.9985, L3400.0700, L503.6550, L3300.1800 ####[facility] [address] [place], [address] GAP 11 Normal 5-15 [facility] Comment on above: Performed By: #### L 503.5510, L3200.0500, L3100.5440, L5500.0410, L3100.3425, L503.6150, L3300.0100, L3100.1850, L504.2610, L100.9950, L3300.1200, L100.0100, L501.9520, L300.3900, L3410.2400, L3200.1100, L3100.6900, L101.9900, L500.4050, L501.6710, L501.9985, L3400.0700, L503.6550, L3300.1800 ####[facility] [address] [facility] [place], [address] GFR/1.73 sq M.predicted among non-blacks MDRD (S/P/Bld) [Vol rate/Area] 107 mL/min/{1.73_m2} Normal >60 [facility] Comment on above: Result Comment: mL/m in/1.73m2 CKD-EPI Creatinine Equation (2020) Performed By: #### L 503.5510, L3200.0500, L3100.5440, L5500.0410, L3100.3425, L503.6150, L3300.0100, L3100.1850, L504.2610, L100.9950, L3300.1200, L100.0100, L501.9520, L300.3900, L3410.2400, L3200.1100, L3100.6900, L101.9900, L500.4050, L501.6710, L501.9985, L3400.0700, L503.6550, L3300.1800 ####[facility] [address] [facility] [place], [address] Globulin (S) [Mass/Vol] 3.4 g/dL Normal 2.2-4.2 [facility] Comment on above: Performed By: #### L 503.5510, L3200.0500, L3100.5440, L5500.0410, L3100.3425, L503.6150, L3300.0100, L3100.1850, L504.2610, L100.9950, L3300.1200, L100.0100, L501.9520, L300.3900, L3410.2400, L3200.1100, L3100.6900, L101.9900, L500.4050, L501.6710, L501.9985, L3400.0700, L503.6550, L3300.1800 ####[facility] [address] [place], [place], [phone] Glucose [Mass/Vol] 93 mg/dL Normal 70-99 [facility] Comment on above: Performed By: #### L 503.5510, L3200.0500, L3100.5440, L5500.0410, L3100.3425, L503.6150, L3300.0100, L3100.1850, L504.2610, L100.9950, L3300.1200, L100.0100, L501.9520, L300.3900, L3410.2400, L3200.1100, L3100.6900, L101.9900, L500.4050, L501.6710, L501.9985, L3400.0700, L503.6550, L3300.1800 ####[facility] [address] [facility] [place], [place], [phone]) Potassium [Moles/Vol] 4.2 mmol/L Normal 3.3-5.1 [facility] Comment on above: Performed By: #### L 503.5510, L3200.0500, L3100.5440, L5500.0410, L3100.3425, L503.6150, L3300.0100, L3100.1850, L504.2610, L100.9950, L3300.1200, L100.0100, L501.9520, L300.3900, L3410.2400, L3200.1100, L3100.6900, L101.9900, L500.4050, L501.6710, L501.9985, L3400.0700, L503.6550, L3300.1800 ####[facility] [address] [place], [place], [phone] Sodium [Moles/Vol] 138 mmol/L Normal 133-145 [facility] Comment on above: Performed By: #### L 503.5510, L3200.0500, L3100.5440, L5500.0410, L3100.3425, L503.6150, L3300.0100, L3100.1850, L504.2610, L100.9950, L3300.1200, L100.0100, L501.9520, L300.3900, L3410.2400, L3200.1100, L3100.6900, L101.9900, L500.4050, L501.6710, L501.9985, L3400.0700, L503.6550, L3300.1800 ####[facility] [address] [facility] [place], [place], [phone] T PROT 7.3 g/dL Normal 5.9-8.4 [facility] Comment on above: Performed By: #### L 503.5510, L3200.0500, L3100.5440, L5500.0410, L3100.3425, L503.6150, L3300.0100, L3100.1850, L504.2610, L100.9950, L3300.1200, L100.0100, L501.9520, L300.3900, L3410.2400, L3200.1100, L3100.6900, L101.9900, L500.4050, L501.6710, L501.9985, L3400.0700, L503.6550, L3300.1800 ####[facility] [address] [facility] [place], [place], [phone] Urea nitrogen [Mass/Vol] 9 mg/dL Normal 4-19 [facility] Comment on above: Performed By: #### L 503.5510, L3200.0500, L3100.5440, L5500.0410, L3100.3425, L503.6150, L3300.0100, L3100.1850, L504.2610, L100.9950, L3300.1200, L100.0100, L501.9520, L300.3900, L3410.2400, L3200.1100, L3100.6900, L101.9900, L500.4050, L501.6710, L501.9985, L3400.0700, L503.6550, L3300.1800 ####[facility] [address] [facility]. [place], [place], [phone] Eosinophil percentageOrdered By: Quang Myles on 08-08-2024 Eosinophils/100 WBC (Bld) 3.8 % 0-5 [facility] Erythrocyte Sed Rateon 08-08 SED RATE 69 mm/hr High 0-30 [facility] Comment on above: Performed By: #### L 503.5510, L3200.0500, L3100.5440, L5500.0410, L3100.3425, L503.6150, L3300.0100, L3100.1850, L504.2610, L100.9950, L3300.1200, L100.0100, L501.9520, L300.3900, L3410.2400, L3200.1100, L3100.6900, L101.9900, L500.4050, L501.6710, L501.9985, L3400.0700, L503.6550, L3300.1800 ####[facility] [address] [place], [address] Erythrocyte distribution wid th ratioOrdered By: Quang Myles on 08-08-2024 Erythrocyte distribution width (RBC) [Ratio] 13.1 % 11.6-14.6 [facility] Erythrocyte distribution wid th standard deviationOrdered By: Quang Myles on 08-08-2024 Erythrocyte distribution width (RBC) [Ratio] 46.1 fl High 35.1-43.9 [facility] Erythrocyte sedimentation ra teOrdered By: Quang Myles on 08-08-2024 ESR (Bld) [Velocity] 69 mm/h High 0-30 [facility] Ferritinon 08-08-2024 Ferritin [Mass/Vol] 216 ng/mL Normal 22-378 [facility] Comment on above: Performed By: #### L 503.5510, L3200.0500, L3100.5440, L5500.0410, L3100.3425, L503.6150, L3300.0100, L3100.1850, L504.2610, L100.9950, L3300.1200, L100.0100, L501.9520, L300.3900, L3410.2400, L3200.1100, L3100.6900, L101.9900, L500.4050, L501.6710, L501.9985, L3400.0700, L503.6550, L3300.1800 ####[facility] [address] [place], [place], [phone] Gastrin, serumOrdered By: Ra treva Myles on 08-08-2024 Gastrin [Mass/Vol] 17 pg/mL 0-115 [facility] Gastroenterology Visit Repor ton 08-08-2024 Gastroenterology Visit Report Normal [facility] Glomerular filtration rate ( GFR) estimation/1.73 sq m using serum, plasma, or whole bOrdered By: Quang Myles on 08-08-2024 GFR/1.73 sq M.predicted among non-blacks MDRD (S/P/Bld) [Vol rate/Area] 107 mL/min/{1.73_m2} >60 [facility] Hematocrit Auto (Bld) [Volum e fraction]Ordered By: Quang Myles on 08-08-2024 Hematocrit (Bld) [Volume fraction] 44.1 % 37-47 [facility] Hemoglobin A1con 08-08-2024 HbA1c (Bld) [Mass fraction] 6.0 % High <=5.6 [facility] Comment on above: Result Comment: Norm al < 5.7 % Prediabetic 5.7 - 6.4 % Diabetic >or= 6.5 % Please note range changes. Performed By: #### L 503.5510, L3200.0500, L3100.5440, L5500.0410, L3100.3425, L503.6150, L3300.0100, L3100.1850, L504.2610, L100.9950, L3300.1200, L100.0100, L501.9520, L300.3900, L3410.2400, L3200.1100, L3100.6900, L101.9900, L500.4050, L501.6710, L501.9985, L3400.0700, L503.6550, L3300.1800 ####[facility] [address] [place], [address] Hemoglobin A1c percentageOrd ered By: Quang Myles on 08-08-2024 HbA1c (Bld) [Mass fraction] 6.0 % High <5.7 [facility] Hemoglobin measurementOrdere d By: Quang Myles on 08-08-2024 Hemoglobin (Bld) [Mass/Vol] 14.7 g/dL 12.0-15.0 [facility] IgEOrdered By: Quang Welch d on 08-08-2024 IgE 122 IU/mL 6-495 [facility] Immature granulocytes/100 WB C Auto (Bld)Ordered By: Quang Myles on 08-08-2024 Immature granulocytes/100 WBC (Bld) 0.500 % 0.0-0.9 [facility] Interpretation of serum or p lasma protein pattern by immunofixation (narrative resultOrdered By: Quang Myles on 08-08-2024 Protein Fractions Immunofixation David [Interp] Not Observed g/dL Not Observed [facility] Ironon 08-08-2024 Iron [Mass/Vol] 75 ug/dL Normal 50-170 [facility] Comment on above: Performed By: #### L 503.5510, L3200.0500, L3100.5440, L5500.0410, L3100.3425, L503.6150, L3300.0100, L3100.1850, L504.2610, L100.9950, L3300.1200, L100.0100, L501.9520, L300.3900, L3410.2400, L3200.1100, L3100.6900, L101.9900, L500.4050, L501.6710, L501.9985, L3400.0700, L503.6550, L3300.1800 ####[facility] [address] [place], [address] Iron measurement (mass/mass) Ordered By: Quang Myles on 08-08-2024 Iron (Unsp spec) [Mass/Mass] 75 ug/dL 50-170 [facility] LDHon 08-08-2024 LDH 258 U/L High 84-246 [facility] Comment on above: Order Comment: 1 Performed By: #### L 503.5510, L3200.0500, L3100.5440, L5500.0410, L3100.3425, L503.6150, L3300.0100, L3100.1850, L504.2610, L100.9950, L3300.1200, L100.0100, L501.9520, L300.3900, L3410.2400, L3200.1100, L3100.6900, L101.9900, L500.4050, L501.6710, L501.9985, L3400.0700, L503.6550, L3300.1800 ####[facility] [address] [place], [address] Laboratory - Miscellaneous t estsOrdered By: Quang Myles on 08-08-2024 Service comment (Unsp spec) [Interp] Comment . [facility] MCV (mean corpuscular volume ) determinationOrdered By: Quang Myles on 08-08-2024 MCV (RBC) [Entitic vol] 95.9 fL 81-99 [facility] Mean corpuscular hemoglobin (MCH) determinationOrdered By: Quang Myles on 08-08-2024 MCH (RBC) [Entitic mass] 32.0 pg 27.0-32.0 [facility] Monocyte percentageOrdered B y: Quang Myles on 08-08-2024 Monocytes/100 WBC (Bld) 5.4 % 0-10 [facility] Neutrophil percentageOrdered By: Quang Myles on 08-08-2024 Neutrophils/100 WBC (Bld) 75.5 % High 47-70 [facility] No Panel InformationOrdered By: Quang Myles on 08-08-2024 Addendum Document Comment . [facility] 43 U/L High <32 [facility] Platelet countOrdered By: Ra treva Myles on 08-08-2024 Platelets (Bld) [#/Vol] 375 10*3/uL 150-450 [facility] Potassium measurement (mass/ volume)Ordered By: Quang Myles on 08-08-2024 Potassium (Unsp spec) [Mass/Vol] 4.2 mmol/L 3.3-5.1 [facility] Prothrombin Time w/INRon INR Coag (PPP) [Relative time] 1.0 {INR} Normal [facility] Comment on above: Performed By: #### L 503.5510, L3200.0500, L3100.5440, L5500.0410, L3100.3425, L503.6150, L3300.0100, L3100.1850, L504.2610, L100.9950, L3300.1200, L100.0100, L501.9520, L300.3900, L3410.2400, L3200.1100, L3100.6900, L101.9900, L500.4050, L501.6710, L501.9985, L3400.0700, L503.6550, L3300.1800 ####[facility] [address] [place], [address] PT Coag (PPP) [Time] 12.8 s Normal 11.7-14.9 [facility] Comment on above: Performed By: #### L 503.5510, L3200.0500, L3100.5440, L5500.0410, L3100.3425, L503.6150, L3300.0100, L3100.1850, L504.2610, L100.9950, L3300.1200, L100.0100, L501.9520, L300.3900, L3410.2400, L3200.1100, L3100.6900, L101.9900, L500.4050, L501.6710, L501.9985, L3400.0700, L503.6550, L3300.1800 ####[facility] [id number] [place], [address] Prothrombin timeOrdered By: Quang Myles on 08-08-2024 PT Coag (PPP) [Time] 12.8 s 11.7-14.9 [facility] RBC Auto (Bld) [#/Vol]Ordere d By: Quang Myles on 08-08-2024 RBC (Bld) [#/Vol] 4.60 10*6/uL 4.2-5.4 [facility] Retic Panelon 08-08-2024 IM RET FRACTION 14.30 Normal 3.00-15.90 [facility] Comment on above: Performed By: #### L 503.5510, L3200.0500, L3100.5440, L5500.0410, L3100.3425, L503.6150, L3300.0100, L3100.1850, L504.2610, L100.9950, L3300.1200, L100.0100, L501.9520, L300.3900, L3410.2400, L3200.1100, L3100.6900, L101.9900, L500.4050, L501.6710, L501.9985, L3400.0700, L503.6550, L3300.1800 ####[facility] [id number] [place], [address] RET-HE 34.4 pg Normal 30-35 [facility] Comment on above: Performed By: #### L 503.5510, L3200.0500, L3100.5440, L5500.0410, L3100.3425, L503.6150, L3300.0100, L3100.1850, L504.2610, L100.9950, L3300.1200, L100.0100, L501.9520, L300.3900, L3410.2400, L3200.1100, L3100.6900, L101.9900, L500.4050, L501.6710, L501.9985, L3400.0700, L503.6550, L3300.1800 ####[facility] [address] [place], [address] Retic Count 0.78 Normal 0.5-1.5 [facility] Comment on above: Performed By: #### L 503.5510, L3200.0500, L3100.5440, L5500.0410, L3100.3425, L503.6150, L3300.0100, L3100.1850, L504.2610, L100.9950, L3300.1200, L100.0100, L501.9520, L300.3900, L3410.2400, L3200.1100, L3100.6900, L101.9900, L500.4050, L501.6710, L501.9985, L3400.0700, L503.6550, L3300.1800 ####[facility] [id number] [place], [address] Reticulocyte hemoglobin equi valent (RET-He) measurementOrdered By: Quang Myles on 08-08-2024 Hemoglobin (Reticulocytes) [Entitic mass] 34.4 pg 30-35 [facility] Reticulocytes Auto (Bld) [#/ Vol]Ordered By: Quang Myles on 08-08-2024 Reticulocytes/100 RBC (Bld) 0.78 % 0.5-1.5 [facility] Serum DNA double strand anti body assay (units/volume)Ordered By: Quangyunior Myles on 08-08-2024 DNA double strand Ab Qn (S) [IU]/mL 0-9 [facility] Serum IgG subclass 1 measure ment (mass/volume)Ordered By: Quangyunior Myles on 08-08-2024 IgG subclass 1 (S) [Mass/Vol] 509 mg/dL 248-810 [facility] Serum IgG subclass 2 measure ment (mass/volume)Ordered By: Quang Myles on 08-08-2024 IgG subclass 2 (S) [Mass/Vol] 168 mg/dL 130-555 [facility] Serum IgG subclass 3 measure ment (mass/volume)Ordered By: Quangyunior Myles on 08-08-2024 IgG subclass 3 (S) [Mass/Vol] 73 mg/dL 15-102 [facility] Serum Scl-70 antibody assay (units/volume)Ordered By: Quang Mlyes on 08-08-2024 SCL-70 extractable nuclear Ab Qn (S) TNP [facility] SCL-70 extractable nuclear Ab Qn (S) <0.2 AI 0.0-0.9 [facility] Serum black walnut IgE antib eliecer assay (units/volume)Ordered By: Quang Myles on 08-08-2024 Black [place] IgE Qn (S) <0.10 kU/L Class 0 [facility] Serum clam IgE antibody assa y (units/volume)Ordered By: Quang Myles on 08-08-2024 Clam IgE Qn (S) <0.10 kU/L Class 0 [facility] Serum classic neutrophil cyt oplasmic antibody assay (units/volume)Ordered By: Quang Myles on 08-08-2024 Neutrophil cytoplasmic Ab.classic Qn (S) <1:20 titer Neg:<1:20 [facility] Serum codfish IgE antibody a ssay (units/volume)Ordered By: Quang Myles on 08-08-2024 Codfish IgE Qn (S) <0.10 kU/L Class 0 [facility] Serum corn IgE antibody assa y (units/volume)Ordered By: Quang Myles on 08-08-2024 Fox IgE Qn (S) <0.10 kU/L Class 0 [facility] Serum cow milk IgE antibody assay (units/volume)Ordered By: Quang Myles on 08-08-2024 Cow milk IgE Qn (S) 0.24 kU/L High Class 0/I [facility] Serum creatinine measurement (mass/volume)Ordered By: Quang Myles on 08-08-2024 Creatinine [Mass/Vol] 0.71 mg/dL 0.70-1.20 [facility] Serum egg white IgE antibody assay (units/volume)Ordered By: Quang Myles on 08-08-2024 Egg white IgE Qn (S) <0.10 kU/L Class 0 [facility] Serum globulin measurement ( mass/volume)Ordered By: Quang Myles on 08-08-2024 Globulin (S) [Mass/Vol] 3.5 g/dL 2.2-3.9 [facility] Serum glucose measurement (m ass/volume)Ordered By: Quang Myles on 08-08-2024 Glucose [Mass/Vol] 93 mg/dL 70-99 [facility] Serum or plasma C reactive p rotein measurement (mass/volume)Ordered By: Quang Myles on 08-08-2024 CRP [Mass/Vol] 16.80 mg/L High 0.0-3.0 [facility] Serum or plasma IgA measurem ent (mass/volume)Ordered By: Quang Myles on 08-08-2024 IgA [Mass/Vol] 134 mg/dL 87-352 [facility] Serum or plasma IgG measurem ent (mass/volume)Ordered By: Quang Myles on 08-08-2024 IgG [Mass/Vol] 945 mg/dL 586-1602 [facility] IgG [Mass/Vol] Not Reportable [facility] Serum or plasma alanine hair otransferase (ALT) measurementOrdered By: Quang Myles on 08-08-2024 ALT [Catalytic activity/Vol] 37 U/L High <35 [facility] Serum or plasma albumin leslie urement (mass/volume)Ordered By: Quang Myles on 08-08-2024 Albumin [Mass/Vol] 3.9 g/dL 3.5-5.0 [facility] Serum or plasma albumin/glob ulin mass ratioOrdered By: Quang Myles on 08-08-2024 Albumin/Globulin [Mass ratio] 1.1 {ratio} 0.9-2.4 [facility] Serum or plasma alkaline delfin sphatase measurementOrdered By: Quang Myles on 08-08-2024 ALP [Catalytic activity/Vol] 155 U/L High 35-104 [facility] Serum or plasma alpha 1 glob ulin measurement by electrophoresis (mass/volume)Ordered By: Quang Myles on 08-08-2024 Alpha 1 globulin Elph [Mass/Vol] 0.2 g/dL 0.0-0.4 [facility] Alpha 1 globulin Elph [Mass/Vol] 1.1 g/dL High 0.4-1.0 [facility] Serum or plasma angiotensin converting enzyme measurement (enzymatic activity/volume)Ordered By: Quang Myles on 08-08-2024 Angiotensin converting enzyme [Catalytic activity/Vol] 62 U/L 14-82 [facility] Serum or plasma beta globuli n measurement by electrophoresis (mass/volume)Ordered By: Quang Myles on 08-08-2024 Beta globulin Elph [Mass/Vol] 1.2 g/dL 0.7-1.3 [facility] Serum or plasma calcium leslie urement (mass/volume)Ordered By: Quang Myles on 08-08-2024 Calcium [Mass/Vol] 9.7 mg/dL 7.6-11.0 [facility] Serum or plasma ferritin janet surement (mass/volume)Ordered By: Quang Myles on 08-08-2024 Ferritin [Mass/Vol] 216 ng/mL 22-378 [facility] Serum or plasma gamma globul in measurement by electrophoresis (mass/volume)Ordered By: Quang Myles on 08-08-2024 Gamma globulin Elph [Mass/Vol] 1.0 g/dL 0.4-1.8 [facility] Serum or plasma immunoelectr ophoresis interpretation (nominal result)Ordered By: Quang Myles on 08-08-2024 Interpretation IEP [Interp] Comment . [facility] Serum or plasma protein leslie urement (mass/volume)Ordered By: Quang Myles on 08-08-2024 Protein [Mass/Vol] 6.9 g/dL 6.0-8.5 [facility] Serum or plasma urea nitroge n measurement (mass/volume)Ordered By: Quang Myles on 08-08-2024 Urea nitrogen [Mass/Vol] 9 mg/dL 4-19 [facility] Serum peanut IgE antibody as say (units/volume)Ordered By: Quang Myles on 08-08-2024 Peanut IgE Qn (S) <0.10 kU/L Class 0 [facility] Serum perinuclear neutrophil cytoplasmic antibody titer by immunofluorescenceOrdered By: Quang Myles on 08-08-2024 Neutrophil cytoplasmic Ab.perinuclear IF (S) [Titer] <1:20 titer Neg:<1:20 [facility] Serum soybean IgE antibody a ssay (units/volume)Ordered By: Quang Myles on 08-08-2024 Soybean IgE Qn (S) <0.10 kU/L Class 0 [facility] Serum tissue transglutaminas e (tTG) IgA antibody assay (units/volume)Ordered By: Quang Myles on 08-08-2024 tTG IgA Qn (S) <2 U/mL 0-3 [facility] Serum wheat IgE antibody ass ay (units/volume)Ordered By: Quang Myles on 08-08-2024 Wheat IgE Qn (S) <0.10 kU/L Class 0 [facility] Sodium levelOrdered By: Wendy mojica Friend on 08-08-2024 Sodium [Moles/Vol] 138 mmol/L 133-145 [facility] TSH DL <= 0.005 mIU/L QnOrde red By: Quang Myles on 08-08-2024 TSH Qn 2.360 uIU/mL 0.300-4.20 0 [facility] Thyroid Stim Hormone (TSH)on 08-08-2024 TSH 2.360 uIU/mL Normal 0.300-4.20 0 [facility] Comment on above: Performed By: #### L 503.5510, L3200.0500, L3100.5440, L5500.0410, L3100.3425, L503.6150, L3300.0100, L3100.1850, L504.2610, L100.9950, L3300.1200, L100.0100, L501.9520, L300.3900, L3410.2400, L3200.1100, L3100.6900, L101.9900, L500.4050, L501.6710, L501.9985, L3400.0700, L503.6550, L3300.1800 ####[facility] [id number] [place], [place], [address] Total proteinOrdered By: Luis Myles on 08-08-2024 Protein [Mass/Vol] 7.3 g/dL 5.9-8.4 [facility] Venous blood ammonia measure mentOrdered By: Quang Myles on 08-08-2024 Ammonia (P) [Moles/Vol] 36.2 umol/L 11-51 [facility] White blood cell (WBC) count Ordered By: Quang Myles on 08-08-2024 WBC (Bld) [#/Vol] 9.2 10*3/uL 4.4-11.0 [facility] Basic metabolic 2000 panelon 07-27-2024 Anion gap [Moles/Vol] 13 mmol/L Normal 8-15 [facility] Comment on above: Order Comment: Speci men Type: BLOOD SPECIMEN Ordering Facility: [facility] Address: [address] [place] [address] Performed By: #### 1 9123-9, 11609-6 #### [facility] CLIA [id number] [address] [place] [address] [place] Calcium [Mass/Vol] 10.3 mg/dL High 8.5-10.2 [facility] Comment on above: Order Comment: Speci men Type: BLOOD SPECIMEN Ordering Facility: [facility] Address: [address] [place] [address] Performed By: #### 1 9123-9, 82470-4 #### [facility] CLIA [id number] [address] [place] [address] [place] Chloride [Moles/Vol] 98 mmol/L Normal 98-107 [facility] Comment on above: Order Comment: Speci men Type: BLOOD SPECIMEN Ordering Facility: [facility] Address: [address] [place] [address] Performed By: #### 1 9123-9, 27249-5 #### [facility] CLIA [id number] [address] [place] [address] [place] CO2 [Moles/Vol] 23 mmol/L Normal 22-30 [facility] Comment on above: Order Comment: Speci men Type: BLOOD SPECIMEN Ordering Facility: [facility] Address: [address] [place] [address] Performed By: #### 1 9123-9, 36042-4 #### [facility] CLIA [id number] [address] [place], [place] [address] [place] Creatinine [Mass/Vol] 0.88 mg/dL Normal 0.58-0.96 [facility] Comment on above: Order Comment: David horton Type: BLOOD SPECIMEN Ordering Facility: [facility] Address: [address] [place] [address] Performed By: #### 1 9123-9, 39688-7 #### [facility] CLIA [id number] [address] [place] [address] [place] Creatinine and Glomerular filtration rate.predicted panel (S/P/Bld) 83 mL/min/1.73m??? Normal >=60 [facility] Comment on above: Order Comment: David horton Type: BLOOD SPECIMEN Ordering Facility: [facility] Address: [address] [place] [address] Result Comment: Sandie mated Glomerular Filtration Rate [...] actual GFR. Performed By: #### 1 9123-9, 24842-7 #### [facility] CLIA [id number] [address] [place] [address] [place] Glucose [Mass/Vol] 84 mg/dL Normal 74-99 [facility] Comment on above: Order Comment: David horton Type: BLOOD SPECIMEN Ordering Facility: [facility] Address: [address] [place] [address] Result Comment: The [place] [employer] (ADA) provides guidance for cutoff [...] Standards of Medical Care in Diabetes 2016, [place] [employer]. Diabetes Care. 2016.39(Suppl 1). Performed By: #### 1 9123-9, 52589-4 #### [facility] CLIA [id number] [address] [place] [address] [place] Potassium [Moles/Vol] 5.4 mmol/L High 3.7-5.1 [facility] Comment on above: Order Comment: Speci men Type: BLOOD SPECIMEN Ordering Facility: [facility] Address: [address] [place] [address] Performed By: #### 1 9123-9, 88002-4 #### [facility] CLIA [id number] [address] [place] [address] [place] Sodium [Moles/Vol] 134 mmol/L Low 136-144 [facility] Comment on above: Order Comment: Speci men Type: BLOOD SPECIMEN Ordering Facility: [facility] Address: [address] [place] [address] Performed By: #### 1 9123-9, 53367-3 #### [facility] CLIA [id number] [address] [place] [address] [place] Urea nitrogen [Mass/Vol] 25 mg/dL High 7-21 [facility] Comment on above: Order Comment: Speci men Type: BLOOD SPECIMEN Ordering Facility: [facility] Address: [address] [place] [address] Performed By: #### 1 9123-9, 82668-6 #### [facility] CLIA [id number] [address] [place] [address] [place] CBC panel Auto (Bld)on 07-27 Erythrocyte distribution width (RBC) [Ratio] 14.0 % Normal 11.5-15.0 [facility] Comment on above: Order Comment: Speci men Type: BLOOD SPECIMEN Ordering Facility: [facility] Address: [address] [place] [address] Performed By: #### 5 8410-2 #### [facility] CLIA [id number] [address] [place] [address] [place] Hematocrit (Bld) [Volume fraction] 55.3 % High 36.0-46.0 [facility] Comment on above: Order Comment: Speci men Type: BLOOD SPECIMEN Ordering Facility: [facility] Address: [address] [place] [address] Performed By: #### 5 8410-2 #### [facility] CLIA [id number] [address] [place] [address] [place] Hemoglobin (Bld) [Mass/Vol] 18.1 g/dL High 11.5-15.5 [facility] Comment on above: Order Comment: Speci men Type: BLOOD SPECIMEN Ordering Facility: [facility] Address: [address] [place] [address] Performed By: #### 5 8410-2 #### [facility] CLIA [id number] [address] [place] [address] [place] MCH (RBC) [Entitic mass] 31.5 pg Normal 26.0-34.0 [facility] Comment on above: Order Comment: Speci men Type: BLOOD SPECIMEN Ordering Facility: [facility] Address: [address] [place] [address] Performed By: #### 5 8410-2 #### [facility] CLIA [id number] [address] [place] [address] [place] MCHC (RBC) [Mass/Vol] 32.7 g/dL Normal 30.5-36.0 [facility] Comment on above: Order Comment: Speci men Type: BLOOD SPECIMEN Ordering Facility: [facility] Address: [address] [place] [address] Performed By: #### 5 8410-2 #### [facility] CLIA [id number] [address] [place] [address] [place] MCV (RBC) [Entitic vol] 96.3 fL Normal 80.0-100.0 [facility] Comment on above: Order Comment: Speci men Type: BLOOD SPECIMEN Ordering Facility: [facility] Address: [address] [place] [address] Performed By: #### 5 8410-2 #### [facility] CLIA [id number] [address] [place] [address] [place] Nucleated RBC (Bld) [#/Vol] 10*3/uL Normal <0.01 [facility] Comment on above: Order Comment: Speci men Type: BLOOD SPECIMEN Ordering Facility: [facility] Address: [address] [place] [address] Performed By: #### 5 8410-2 #### [facility] CLIA [id number] [address] [place] [address] [place] Platelet mean volume (Bld) [Entitic vol] 9.5 fL Normal 9.0-12.7 [facility] Comment on above: Order Comment: Speci men Type: BLOOD SPECIMEN Ordering Facility: [facility] Address: [address] [place] [address] Performed By: #### 5 8410-2 #### [facility] CLIA [id number] [address] [place] [address] [place] Platelets (Bld) [#/Vol] 385 10*3/uL Normal 150-400 [facility] Comment on above: Order Comment: Speci men Type: BLOOD SPECIMEN Ordering Facility: [facility] Address: [address] [place] [address] Performed By: #### 5 8410-2 #### [facility] CLIA [id number] [address] [place] [address] [place] RBC (Bld) [#/Vol] 5.74 10*6/uL High 3.90-5.20 [facility] Comment on above: Order Comment: Speci men Type: BLOOD SPECIMEN Ordering Facility: [facility] Address: [address] [place] [address] Performed By: #### 5 8410-2 #### [facility] CLIA [id number] [address] [place] [address] [place] WBC (Bld) [#/Vol] 12.54 10*3/uL High 3.70-11.00 [facility] Comment on above: Order Comment: Speci men Type: BLOOD SPECIMEN Ordering Facility: [facility] Address: [address] [place] [address] Performed By: #### 5 8410-2 #### [facility] CLIA [id number] [address] [place] [address] OF [place] CNDSon 07-27-2024 [facility] HNO ID: [id number] Author: CASE FONSECA MD Service: Cardiovascular Medicine Author Type: Physician Translational Specialist Type: Discharge Summary Filed: 08/08/2024 18:58 Note Text: -------- Attestation signed by Case Fonseca MD at 08/08/2024 6:58 PM As above -------- Department of Cardiovascular Medicine Discharge Summary (Template ID [id number]) PATIENT NAME: Michelle Mitchell ADMISSION DATE: 07/24/2024 [...] of lower extremity Yes Current use of fpc anticoagulation Yes Insomnia Yes Heart valve vegetation [...] display. Reason for Hospitalization: Patient transferred to [facility] from [place] for concerns for ADHF and hx of [...] follow up with her local PCP and track laborer in [place]. Consults: Infectious Disease, Electrophysiology, and Psychiatry Major [...] Other: See Comments suicidal ideations Azithromycin Intolerance [place] Anaphylaxis [place] Anaphylaxis pickles Fish Anaphylaxis Levofloxacin In D5w [...] Your Medications These medications were sent to [id number] - [place] [address] - [address] [facility] - [phone] [place] [address] metoprolol succinate ER 25 mg 24 hr tablet Transitions of Care Critical Issues: Outpatient Management: * Are there important medication changes and/or outstanding issues that need to be addressed: See Above * What is the plan for follow up: Follow up with local PCP and track laborer in [place] Future Appointments: No future appointments. Highest Readmis (more content not included)... Normal [facility] Culture, Blood (WB)on 2024 CUB No growth in 5 days. Normal [facility] Comment on above: Performed By: #### M 200.1000 ####[facility] [id number] [place], [address] Magnesium SerPl-mCncon 07-27 Magnesium [Mass/Vol] 2.3 mg/dL Normal 1.7-2.3 [facility] Comment on above: Order Comment: Speci men Type: BLOOD SPECIMEN Ordering Facility: [facility] Address: [address] [place] [address] Performed By: #### 1 9123-9, 08287-5 #### [facility] CLIA [id number] [address] [place] [address] [place] [address] [place] PT EDon 07-27-2024 PT ED HNO ID: [id number] Author: IRLANDA MOORE RPh Service: Pharmacy Author [...] FURTHER RECOMMENDATIONS (IF ANY): n/a Irlanda Moore [facility] PAGER: [phone] [facility] PT ED HNO ID: [id number] Author: JARVIS PALOMINO DTR Service: Nutrition Therapy Author Type: Silver Cleaner Type: Patient Education Filed: 07/27/2024 08:38 Note [...] July 27, 2024 TIME: 8:38 AM PAGER: [facility] ALLIED HEALTHon 07-26-2024 ALLIED HEALTH HNO ID: [id number] Author: MARGARETTE JONES, Art Therapist Service: Art Therapy Author Type: [...] forms of expression, processing, and containment (trauma, "sane"). Affirmed pt self awareness, sense of agency [...] aware. Will follow up as able. SIGNATURE: Margarette Jones Art Therapist PATIENT NAME: Michelle Mitchell DATE: July 26, 2024 TIME: 4:40 PM PAGER/CONTACT #: [phone] Normal [facility] Basic metabolic 2000 panelon 07-26-2024 Anion gap [Moles/Vol] 14 mmol/L Normal 8-15 [facility] Comment on above: Order Comment: Speci men Type: BLOOD SPECIMEN Ordering Facility: [facility] Address: [address] [place] [address] Performed By: #### 1 9123-9, 71550-2 #### [facility] CLIA [id number] [address] [place] [address] [place] [address] [place] Calcium [Mass/Vol] 9.4 mg/dL Normal 8.5-10.2 [facility] Comment on above: Order Comment: Speci men Type: BLOOD SPECIMEN Ordering Facility: [facility] Address: [address] [place] [address] Performed By: #### 1 9123-9, 77866-9 #### [facility] CLIA [id number] [address] [place] [address] [place] Chloride [Moles/Vol] 98 mmol/L Normal 98-107 [facility] Comment on above: Order Comment: Speci men Type: BLOOD SPECIMEN Ordering Facility: [facility] Address: [address] [place] [address] Performed By: #### 1 9123-9, 40912-3 #### [facility] CLIA [id number] [address] [place] [address] [place] CO2 [Moles/Vol] 24 mmol/L Normal 22-30 [facility] Comment on above: Order Comment: Speci men Type: BLOOD SPECIMEN Ordering Facility: [facility] Address: [address] [place] [address] Performed By: #### 1 9123-9, 06206-6 #### [facility] CLIA [id number] [address] [place] [address] [place] Creatinine [Mass/Vol] 1.02 mg/dL High 0.58-0.96 [facility] Comment on above: Order Comment: Speci men Type: BLOOD SPECIMEN Ordering Facility: [facility] Address: [address] [place] [address] Performed By: #### 1 9123-9, 82246-2 #### [facility] CLIA [id number] [address] [place] [address] [place] Creatinine and Glomerular filtration rate.predicted panel (S/P/Bld) 70 mL/min/1.73m??? Normal >=60 [facility] Comment on above: Order Comment: Speci men Type: BLOOD SPECIMEN Ordering Facility: [facility] Address: [address] [place] [address] Result Comment: Sandie mated Glomerular Filtration Rate [...] actual GFR. Performed By: #### 1 9123-9, 72095-2 #### [facility] CLIA [id number] [address] [place] [address] [place] Glucose [Mass/Vol] 98 mg/dL Normal 74-99 [facility] Comment on above: Order Comment: David horton Type: BLOOD SPECIMEN Ordering Facility: [facility] Address: [address] [place] [address] Result Comment: The [place] Diabetes [employer] (ADA) provides guidance for cutoff [...] Standards of Medical Care in Diabetes 2016, [place] [employer]. Diabetes Care. 2016.39(Suppl 1). Performed By: #### 1 9123-9, 90848-1 #### [facility] CLIA [id number] [address] [place], [place] [address] [place] Potassium [Moles/Vol] 4.5 mmol/L Normal 3.7-5.1 [facility] Comment on above: Order Comment: David horton Type: BLOOD SPECIMEN Ordering Facility: [facility] Address: [address] [place] [address] Performed By: #### 1 9123-9, 84840-5 #### [facility] CLIA [id number] [address] [place] [address] [place] Sodium [Moles/Vol] 136 mmol/L Normal 136-144 [facility] Comment on above: Order Comment: Speci men Type: BLOOD SPECIMEN Ordering Facility: [facility] Address: [address] [place] [address] Performed By: #### 1 9123-9, 43282-6 #### [facility] CLIA [id number] [address] [place] [address] [place] Urea nitrogen [Mass/Vol] 29 mg/dL High 7-21 [facility] Comment on above: Order Comment: Speci men Type: BLOOD SPECIMEN Ordering Facility: [facility] Address: [address] [place] [address] Performed By: #### 1 9123-9, 48517-8 #### [facility] CLIA [id number] [address] [place] [address] [place] CBC panel Auto (Bld)on 07-26 Erythrocyte distribution width (RBC) [Ratio] 14.1 % Normal 11.5-15.0 [facility] Comment on above: Order Comment: Speci men Type: BLOOD SPECIMEN Ordering Facility: [facility] Address: [address] [place] [address] Performed By: #### 5 8410-2 #### [facility] CLIA [id number] [address] [place] [address] [place] Hematocrit (Bld) [Volume fraction] 50.7 % High 36.0-46.0 [facility] Comment on above: Order Comment: Speci men Type: BLOOD SPECIMEN Ordering Facility: [facility] Address: [address] [place] [address] Performed By: #### 5 8410-2 #### [facility] CLIA [id number] [address] [place] [address] [place] Hemoglobin (Bld) [Mass/Vol] 16.3 g/dL High 11.5-15.5 [facility] Comment on above: Order Comment: Speci men Type: BLOOD SPECIMEN Ordering Facility: [facility] Address: [address] [place] [address] Performed By: #### 5 8410-2 #### [facility] CLIA [id number] [address] [place] [address] [place] MCH (RBC) [Entitic mass] 31.3 pg Normal 26.0-34.0 [facility] Comment on above: Order Comment: Speci men Type: BLOOD SPECIMEN Ordering Facility: [facility] Address: [address] [place] [address] Performed By: #### 5 8410-2 #### [facility] CLIA [id number] [address] [place] [address] [place] MCHC (RBC) [Mass/Vol] 32.1 g/dL Normal 30.5-36.0 [facility] Comment on above: Order Comment: Speci men Type: BLOOD SPECIMEN Ordering Facility: [facility] Address: [address] [place] [address] Performed By: #### 5 8410-2 #### [facility] CLIA [id number] [address] [place] [address] [place] MCV (RBC) [Entitic vol] 97.3 fL Normal 80.0-100.0 [facility] Comment on above: Order Comment: Speci men Type: BLOOD SPECIMEN Ordering Facility: [facility] Address: [address] [place] [address] Performed By: #### 5 8410-2 #### [facility] CLIA [id number] [address] [place] [address] [place] Nucleated RBC (Bld) [#/Vol] 10*3/uL Normal <0.01 [facility] Comment on above: Order Comment: Speci men Type: BLOOD SPECIMEN Ordering Facility: [facility] Address: [address] [place] [address] Performed By: #### 5 8410-2 #### [facility] CLIA [id number] [address] [place] [address] [place] Platelet mean volume (Bld) [Entitic vol] 9.8 fL Normal 9.0-12.7 [facility] Comment on above: Order Comment: Speci men Type: BLOOD SPECIMEN Ordering Facility: [facility] Address: [address] [place] [address] Performed By: #### 5 8410-2 #### [facility] CLIA [id number] [address] [place] [address] [place] Platelets (Bld) [#/Vol] 344 10*3/uL Normal 150-400 [facility] Comment on above: Order Comment: Speci men Type: BLOOD SPECIMEN Ordering Facility: [facility] Address: [address] [place] [address] Performed By: #### 5 8410-2 #### [facility] CLIA [id number] [address] [place] [address] [place] RBC (Bld) [#/Vol] 5.21 10*6/uL High 3.90-5.20 [facility] Comment on above: Order Comment: Speci men Type: BLOOD SPECIMEN Ordering Facility: [facility] Address: [address] [place] [address] Performed By: #### 5 8410-2 #### [facility] CLIA [id number] [address] [place] [address] [place] WBC (Bld) [#/Vol] 15.07 10*3/uL High 3.70-11.00 [facility] Comment on above: Order Comment: Speci men Type: BLOOD SPECIMEN Ordering Facility: [facility] Address: [address] [place] [address] Performed By: #### 5 8410-2 #### [facility] CLIA [id number] [address] [place] [address] OF [facility] CNOVon 07-26-2024 CNOV Office Visit (PULACA ) -------- MICHELLE MITCHELL ([id number]) 1980 F Date Time Provider Department 07/26/24 8:15 AM PULM FCT LAB J-2 [place]ACA During your visit today, we recorded the following information about you: Referring Provider: TEJAL RODRÍGUEZ [[id number]] Allergies As of Date: 07/26/2024 Noted Allergy [...] [L02.416] 05/15/2024 Leg wound, left, initial encounter [S81.212A] 05/17/2024 Hepatomegaly [R16.0] 07/04/2024 Other ascites [R18.8] 07/04/2024 Abdominal pain [R10.9] 07/04/2024 Leukopenia [D72.819] 07/04/2024 Endocarditis [I38] 07/24/2024 H/O left mastectomy [Z90.12] 07/24/2024 Hx of cervical cancer [Z85.41] 07/12 (more content not included)... [facility] CNOV Office Visit (PULACA ) -------- MICHELLE MITCHELL ([id number]) 1980 F Date Time Provider Department 07/26/24 8:00 AM PULM FCT LAB J-2 [place]ACA During your visit today, we recorded the following information about you: Referring Provider: TEJAL RODRÍGUEZ [[id number]] Allergies As of Date: 07/26/2024 Noted Allergy [...] [Z85.41] 07/12 (more content not included)... [facility] CONSULTon 07-26-2024 CONSULT HNO ID: [id number] Author: TANJA PINA MD Service: Vascular Medicine [...] nausea, facial swelling. She was seen in [place] ED twice and was discharged home. She was then advised to go to [facility] and was admitted on 07/04/2024. Per GI consult note by Dr. White on 07/05/2024, she reported having colonoscopy done in December 2019 for and was told that she may have Crohn's disease. Given her persistent symptoms, she was advised to get EGD which was done on 07/06/2024 showing mild erosive antral gastritis with bile reflux. Biopsies were also taken from both stomach and duodenum. She was then transferred to the [facility] Main campus on 07/24/2024 as she was noted to have some lesion around ICD concerning for vegetation/endocarditis. At present, patient is being treated for heart failure exacerbation and also being worked up by ID. Prior VTE history (personal/ family) Per chart review, patient had several presentations to ED due to chest pain for the last 2 years. In 2017, she went to [facility] ED with chest pain and further workup revealed acute PE in the right lower lobe diagnosed on 11/29/2016. She was then discharged on Xarelto. Due to intermittent episodes of severe chest pain, she ended up getting CT chest every month to reevaluate pulmonary artery. She then followed up with Dr. 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 Xarelto was [...] BRCA mutation checked while she was in [place]. FAMILY HISTORY: family history includes Breast Cancer [...] Other: See Comments suicidal ideations Azithromycin Intolerance Madison Anaphylaxis Madison Anaphylaxis pickles Fish Anaphylaxis Levofloxacin In D5w [...] screening done (more content not included)... [facility] CONSULT PROGon 07-26-2024 CONSULT PROG HNO ID: [id number] Author: ROSAMARIA HAJI MD Service: Electrophysiology Author [...] ADHF and concern for endocarditis vs residual "...ghost fibrotic strand left behind in the RA to RV" that was noted in previous studies [facility] 07/25/24: filamentous echodensity on the RV lead in the right atrium, measuring ~1.4 cm which appears new from [facility] on 2016. Differential includes infectious versus fibrinous material. LVEF [...] found for the last 365 days. [facility] CONSULT PROG HNO ID: [id number] Author: DAINA MCPHERSON MD Service: Infectious Disease [...] with history of HCM s/p ICD in 2007, lead revision 2008, explant/reimplant for lead malfunction [...] primary team. Signature: Daina Mcpherson MD Pager: [phone] [facility] LUNG DIFFUSION CAPACITY (CARMEN O)on 07-26-2024 LUNG DIFFUSION CAPACITY (DLCO) [facility] [address] [place] [id number] Test Date: 2024-07-26 Pat Name: MICHELLE MITCHELL Department: Room: [place] [address] Gender: Female Entry Rep: : 1980 Requested By: Order Number: [id number] [...] 11:31:34 EDT by Dex Ch MD ID: [id number] Name: MICHELLE MITCHELL Race: White Ht: 63.15 [...] FIF50 4.29 FEF50/FIF50 0.36 90-100 FIVC 2.81 XOD21-17 1.16 1.71 2.91 4.40 39 -2.58 ExpiredTime [...] 82 % FEV1/FVC_LLN (%) : 71 % WPK57_LAE (L/S) : 3.39 L/S PZA78_CLY (L/S) : 0.45 L/S LYD00_FRBN (L/S) : 1.04 L/S ICL35_BAI (L/S) : 0.48 L/S EDC57_AMS (L/S) : 2.06 L/S PHS33-21%_PRE (L/S) : 1.16 L/S OTG66-44%_PRED (L/S) : 2.91 L/S RDL68-42%_LLN (L/S) : 1.71 L/S PEF_PRE (L/S) : [...] ml/min/mmHg DLCO/VACOR (ML/MIN/MMHG/L) : 0.04 ml/min/mmHg/L [facility] Magnesium SerPl-mCncon 07-26 Magnesium [Mass/Vol] 2.3 mg/dL Normal 1.7-2.3 [facility] Comment on above: Order Comment: Speci men Type: BLOOD SPECIMEN Ordering Facility: [facility] Address: [address] [place] [address] Performed By: #### 1 9123-9, 11377-9 #### [facility] CLIA [id number] [address] [place] [address] [place] PTT, ANTICOAGULANT THERAPYon 07-26-2024 aPTT Coag (PPP) [Time] 26.1 s Normal 23.0-32.4 [facility] Comment on above: Order Comment: Speci men Type: BLOOD SPECIMENOrdering Facility: [facility] Address: [address] [place] [address] Performed By: #### P TTAC ####[facility] [id number] [place] [address] [place] aPTT Coag (PPP) [Time] 94.8 s High 23.0-32.4 [facility] Comment on above: Order Comment: Speci men Type: BLOOD SPECIMEN Ordering Facility: [facility] Address: [address] [place] [address] Performed By: #### 5 8410-2 #### [facility] CLIA [id number] [address] [place] [address] [place] aPTT Coag (PPP) [Time] 64.9 s High 23.0-32.4 [facility] Comment on above: Order Comment: Speci men Type: BLOOD SPECIMENOrdering Facility: [facility] Address: [address] [place] [address] Performed By: #### P TTAC ####[facility] [id number] [place] [id number] [facility] SPIROMETRY BASELINE ONLYon 0 07-26-2024 SPIROMETRY BASELINE ONLY [facility] [address] [place] [address] Test Date: 2024-07-26 Pat Name: MICHELLE MITCHELL Department: Room: [place] [address] Gender: Female Entry Rep: : 1980 Requested By: Order Number: [id number] [...] 11:31:34 EDT by Dex Ch MD ID: [id number] Name: MICHELLE MITCHELL Race: White Ht: 63.15 [...] FIF50 4.29 FEF50/FIF50 0.36 90-100 FIVC 2.81 OJF68-94 1.16 1.71 2.91 4.40 39 -2.58 ExpiredTime [...] obtained from [facility] on 07/26/2024.//KJ [facility] Basic metabolic 2000 panelon 07-25-2024 Anion gap [Moles/Vol] 11 mmol/L Normal 8-15 [facility] [place] [facility] Comment on above: Order Comment: Speci men Type: BLOOD SPECIMEN Ordering Facility: [facility] Address: [address] [place] [address] Performed By: #### 5 8410-2 #### [facility] CLIA [id number] [address] [place] [address] [place] Calcium [Mass/Vol] 9.8 mg/dL Normal 8.5-10.2 [facility] Comment on above: Order Comment: Speci men Type: BLOOD SPECIMEN Ordering Facility: [facility] Address: [address] [place] [address] Performed By: #### 5 8410-2 #### [facility] CLIA [id number] [address] [place] [address] [place] Chloride [Moles/Vol] 97 mmol/L Low 98-107 [facility] Comment on above: Order Comment: Speci men Type: BLOOD SPECIMEN Ordering Facility: [facility] Address: [address] [place] [address] Performed By: #### 5 8410-2 #### [facility] CLIA [id number] [address] [place] [address] [place] CO2 [Moles/Vol] 27 mmol/L Normal 22-30 [facility] Comment on above: Order Comment: Speci men Type: BLOOD SPECIMEN Ordering Facility: [facility] Address: [address] [place] [address] Performed By: #### 5 8410-2 #### [facility] CLIA [id number] [address] [place] [address] [place] Creatinine [Mass/Vol] 1.10 mg/dL High 0.58-0.96 [facility] [place] [facility] Comment on above: Order Comment: Speci men Type: BLOOD SPECIMEN Ordering Facility: [facility] Address: [address] [place] [address] Performed By: #### 5 8410-2 #### [facility] CLIA [id number] [address] [place] [address] [place] [facility] Creatinine and Glomerular filtration rate.predicted panel (S/P/Bld) 64 mL/min/1.73m??? Normal >=60 [facility] Comment on above: Order Comment: Speci men Type: BLOOD SPECIMEN Ordering Facility: [facility] Address: [address] [place] [address] Result Comment: Sandie mated Glomerular Filtration Rate [...] GFR. Performed By: #### 5 8410-2 #### [facility] CLIA [id number] [address] [place] [address] [place] Glucose [Mass/Vol] 81 mg/dL Normal 74-99 [facility] Comment on above: Order Comment: Speci men Type: BLOOD SPECIMEN Ordering Facility: [facility] Address: [address], [place] [address] Result Comment: The [place] Diabetes Association (ADA) provides guidance for cutoff [...] Standards of Medical Care in Diabetes 2016, [place] Diabetes Association. Diabetes Care. 2016.39(Suppl 1). Performed By: #### 5 8410-2 #### [facility] CLIA [id number] [address] [place] [address] [place] Potassium [Moles/Vol] 5.2 mmol/L High 3.7-5.1 [facility] [place] [facility] Comment on above: Order Comment: Speci men Type: BLOOD SPECIMEN Ordering Facility: [facility] Address: [address] [place] [address] Performed By: #### 5 8410-2 #### [facility] CLIA [id number] [address] [place] [address] [place] Sodium [Moles/Vol] 135 mmol/L Low 136-144 [facility] Comment on above: Order Comment: Speci men Type: BLOOD SPECIMEN Ordering Facility: [facility] Address: [address] [place] [address] Performed By: #### 5 8410-2 #### [facility] CLIA [id number] [address] [place] [address] [place] Urea nitrogen [Mass/Vol] 31 mg/dL High 7-21 [facility] Comment on above: Order Comment: Speci men Type: BLOOD SPECIMEN Ordering Facility: [facility] Address: [address] [place] [address] Performed By: #### 5 8410-2 #### [facility] CLIA [id number] [address] [place] [address] [place] CBC panel Auto (Bld)on 07-25 Erythrocyte distribution width (RBC) [Ratio] 14.0 % Normal 11.5-15.0 [facility] Comment on above: Order Comment: Speci men Type: BLOOD SPECIMENOrdering Facility: [facility] Address: [address] [place] [address] Performed By: #### 5 8410-2 ####[facility] [id number] [place] [address] [place] Hematocrit (Bld) [Volume fraction] 50.1 % High 36.0-46.0 [facility] Comment on above: Order Comment: Speci men Type: BLOOD SPECIMENOrdering Facility: [facility] Address: [address] [place] [address] Performed By: #### 5 8410-2 ####[facility] [id number] [place] [address] [place] Hemoglobin (Bld) [Mass/Vol] 16.0 g/dL High 11.5-15.5 [facility] Comment on above: Order Comment: Speci men Type: BLOOD SPECIMENOrdering Facility: [facility] Address: [address] [place] [address] Performed By: #### 5 8410-2 ####[facility] [id number] [place] [address] [place] MCH (RBC) [Entitic mass] 31.1 pg Normal 26.0-34.0 [facility] Comment on above: Order Comment: Speci men Type: BLOOD SPECIMENOrdering Facility: [facility] Address: [address] [place] [address] Performed By: #### 5 8410-2 ####[facility] [id number] [place] [address] [place] MCHC (RBC) [Mass/Vol] 31.9 g/dL Normal 30.5-36.0 [facility] Comment on above: Order Comment: Speci men Type: BLOOD SPECIMENOrdering Facility: [facility] Address: [address] [place] [address] Performed By: #### 5 8410-2 ####[facility] [id number] [place] [address] [place] MCV (RBC) [Entitic vol] 97.5 fL Normal 80.0-100.0 [facility] Comment on above: Order Comment: Speci men Type: BLOOD SPECIMENOrdering Facility: [facility] Address: [address] [place] [address] Performed By: #### 5 8410-2 ####[facility] [id number] [place] [address] [place] Nucleated RBC (Bld) [#/Vol] 10*3/uL Normal <0.01 [facility] Comment on above: Order Comment: Speci men Type: BLOOD SPECIMENOrdering Facility: [facility] Address: [address] [place] [address] Performed By: #### 5 8410-2 ####[facility] [id number] [place] [address] [place] Platelet mean volume (Bld) [Entitic vol] 10.4 fL Normal 9.0-12.7 [facility] Comment on above: Order Comment: Speci men Type: BLOOD SPECIMENOrdering Facility: [facility] Address: [address] [place] [address] Performed By: #### 5 8410-2 ####[facility]IA [id number] [place] [address] [place] Platelets (Bld) [#/Vol] 386 10*3/uL Normal 150-400 [facility] Comment on above: Order Comment: Speci men Type: BLOOD SPECIMENOrdering Facility: [facility] Address: [address] [place] [address] Performed By: #### 5 8410-2 ####[facility] [id number] [place] [address] [place] RBC (Bld) [#/Vol] 5.14 10*6/uL Normal 3.90-5.20 [facility] Comment on above: Order Comment: Speci men Type: BLOOD SPECIMENOrdering Facility: [facility] Address: [address] [place] [address] Performed By: #### 5 8410-2 ####[facility] [id number] [place] [address] [place] WBC (Bld) [#/Vol] 21.49 10*3/uL High 3.70-11.00 [facility] Comment on above: Order Comment: Speci men Type: BLOOD SPECIMENOrdering Facility: [facility] Address: [address] [place] [address] Performed By: #### 5 8410-2 ####[facility] [id number] [address] [place] CNOVon 07-25-2024 CNOV Office Visit (CAFLMN ) -------- MICHELLE MITCHELL ([id number]) 1980 F Date Time Provider Department 07/25/24 [...] In Department: CARDIOLOGY Referring Provider: TEJAL RODRÍGUEZ [[id number]] Allergies As of Date: 07/25/2024 Noted Allergy [...] pain [R10.31] (more content not included)... [facility] CONSULTon 07-25-2024 CONSULT HNO ID: [id number] Author: RADU RIVERS MD Service: Cardiovascular Medicine [...] PERMANENT TRANSVENOUS PACEMAKER INSERTION 2006 ICD implant, [facility] ANESTHESIA TUBAL LIGATION/TRANSECTION APPENDECTOMY 05/05/2014 , [...] suicidal ideations Ativan [Lorazepam] Vomiting Azithromycin Intolerance Madison Anaphylaxis [place] Anaphylaxis pickles Fish Anaphylaxis Levofloxacin In D5w Swelling, Itching IV site swollen, ceased after d/c, redness and itching at site Neurontin [Gabapent* Mental Status Change Shellfish Anaphylaxis Tigan [Trimethobenz* Anaphylaxis Ultram [Tramadol] Hives Pt states she also pukes a lot Vicod (more content not included)... [facility] ECG COMPLETEon 07-25-2024 ECG COMPLETE Ventricular Rate : 6 6 BPM Atrial Rate : 66 BPM P-R Interval : 156 ms QRS Duration : 86 ms Q-T Interval : 414 ms QTC Calculation(Bazett) : 434 ms Calculated P [place] : 18 degrees Calculated R [place] : -73 degrees Calculated T [place] : 73 degrees NORMAL SINUS RHYTHM BIATRIAL ENLARGEMENT LEFT ANTERIOR FASCICULAR BLOCK LEFT VENTRICULAR HYPERTROPHY ( Maynard product , Romhilt-Sheets ) ST & LATERAL T WAVE ABNORMALITY ABNORMAL ECG Confirmed by HIPOLITO DAVIS MD ([id number]) on 08/18/2024 10:33:24 PM NAME : MICHELLE MITCHELL PID : [id number] : 1980 Gender : Female Race : ORD : [id number] Procedure Date : Jul 25 2024 09:39:38 Edit Date : Aug 18 2024 22:33:30 Diagnosis: NORMAL SINUS RHYTHM BIATRIAL ENLARGEMENT LEFT ANTERIOR FASCICULAR BLOCK LEFT VENTRICULAR HYPERTROPHY ( Sunny product , Romhilt-Sheets ) ST & LATERAL T WAVE ABNORMALITY ABNORMAL ECG Confirmed by HIPOLITO DAVIS MD ([id number]) on 08/18/2024 10:33:24 PM Test Reason : Chest Pain Location : 353 : J53 J053-11 Overread By : HIPOLITO DAVIS MD Edited By : HIPOLITO DAVIS MD Referred By : MERCY BISHOP Acquired by : INGRID ANGELA [facility] ECHO TRANSESOPHAGEALon 07-25 ECHO TRANSESOPHAGEAL Echocardiography Re port: Transesophageal Echo [facility] J1-5 Date of service: 07/25/2024 3:16:24 PM [employer] Ordering physician: TEJAL RODRÍGUEZ 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 Mobile echodensities on the ICD lead seen on today's study. * * * Final * * * CC [employer] [facility] : [id number] ID [facility] HIGH SENSITIVITY TROPONIN To n 07-25-2024 Troponin T.cardiac High sensitivity method [Mass/Vol] 48 ng/L High <12 [facility] Comment on above: Order Comment: Speci men Type: BLOOD SPECIMENOrdering Facility: [facility] Address: [address] [place] [address] Performed By: #### H STNT ####[facility] [id number] [place] [address] [place] Troponin T.cardiac High sensitivity method [Mass/Vol] 50 ng/L High <12 [facility] Comment on above: Order Comment: Speci men Type: BLOOD SPECIMENOrdering Facility: [facility] Address: [address] [place] [address] Performed By: #### H STNT ####[facility]IA [id number] [address] [place] Troponin T.cardiac High sensitivity method [Mass/Vol] 57 ng/L High <12 [facility] Comment on above: Order Comment: Speci men Type: BLOOD SPECIMEN Ordering Facility: [facility] Address: [address] [place] [address] Performed By: #### 5 8410-2 #### [facility] [place] [id number] [address] [place] [address] [place] HbA1c (Bld)on 07-25-2024 Average glucose Estimated from glycated hemoglobin (Bld) [Mass/Vol] 111 mg/dL [facility] Comment on above: Order Comment: Speci men Type: BLOOD SPECIMENOrdering Facility: [facility] Address: [address] [place] [address] Result Comment: eAG: (Estimated average glucose) is a calculated value from HgbA1c and is reimbursement representative of the average blood glucose level in the last 2-3 month period. Performed By: #### 5 5454-3 ####[facility] [id number] [place] [address] [place] HbA1c (Bld) [Mass fraction] 5.5 % Normal 4.3-5.6 [facility] Comment on above: Order Comment: David horton Type: BLOOD SPECIMENOrdering Facility: [facility] Address: [address] [place] [address] Result Comment: Amer [place] Diabetes Association guidelines indicate that patients with HgbA1c in the range 5.7-6.4% are at increased risk for development of diabetes, and intervention by lifestyle modification may be beneficial. HgbA1c greater or equal to 6.5% is considered diagnostic of diabetes. Performed By: #### 5 5454-3 ####[facility] [id number] [place] [address] [place] Magnesium SerPl-mCncon 07-25 Magnesium [Mass/Vol] 2.5 mg/dL High 1.7-2.3 [facility] Comment on above: Order Comment: David horton Type: BLOOD SPECIMEN Ordering Facility: [facility] Address: [address] [place] [address] Performed By: #### 5 8410-2 #### [facility] CLIA [id number] [address] [place] [address] [place] NURSING PROGon 07-25-2024 NURSING PROG HNO ID: [id number] Author: DOMINGUEZ OBREGON RN Service: ? Author [...] Dominguez Obregon RN In Department: CARDIOLOGY [facility] PTT, ANTICOAGULANT THERAPYon 07-25-2024 aPTT Coag (PPP) [Time] 48.6 s High 23.0-32.4 [facility] Comment on above: Order Comment: David horton Type: BLOOD SPECIMEN Ordering Facility: [facility] Address: [address] [place] [address] Performed By: #### 5 8410-2 #### [facility] CLIA [id number] [address] [place] [address] [place] aPTT Coag (PPP) [Time] 48.0 s High 23.0-32.4 [facility] Comment on above: Order Comment: David horton Type: BLOOD SPECIMENOrdering Facility: [facility] Address: [address] [place] [address] Performed By: #### P TTAC ####[facility] [id number] [place] [address] [place] TSH SerPl-aCncon 07-25-2024 TSH Qn 3.760 m[IU]/L Normal 0.270-4.20 0 [facility] Comment on above: Order Comment: David horton Type: BLOOD SPECIMEN Ordering Facility: [facility] Address: [address] [place] [address] Result Comment: If t he patient is , TSH reference range varies by gestational period: First Trimester (weeks 9-12): 0.180-2.990 mIU/L Second Trimester: 0.110-3.980 mIU/L Third Trimester: 0.480-4.710 mIU/L Bacilio Lay et al. A Practical Approach for the Verifications and Determination of Site- and Trimester-Specific Reference Intervals for Thyroid Function tests in . Thyroid, 2019:29:3:412-420. Lopez Recio, et al. 2017 Guidelines of the [place] Thyroid Association for the Diagnosis and Management of Thyroid Disease during and the . Thyroid, 2017:27:3:315-389. Performed By: #### 5 8410-2 #### [facility] CLIA [id number] [address] [place] [address] [place] US LEG [facility]IN [facility] n 07-25-2024 [facility] Non-Invasive Vascular Laboratory [facility] Portable Lower Extremity Venous Duplex Bilateral/Complete Date [...] RVT Ordering physician: TEJAL RODRÍGUEZ Interpreting physician: LENNY Benavidez DOT, RPVI Final CC [employer] [facility] : [id number] ID See Link below for Image [facility] Bacteria Bld Culton 07-25-19 25 Bacteria identified Cx Nom (Bld) CULTURE, BLOOD: No growth 5 days Normal [facility] Comment on above: Performed By: #### 6 00-7 ####[facility] [id number] [address] CONSULTon 07-24-2024 CONSULT HNO ID: [id number] Author: DAINA MCPHERSON MD Service: Infectious Disease [...] 05/16-05/22/24. She presented with abdominal pain around [facility], for which she had presented several times [...] PERMANENT TRANSVENOUS PACEMAKER INSERTION 2006 ICD implant, [facility] ANESTHESIA TUBAL LIGATION/TRANSECTION APPENDECTOMY 05/05/2014 , [...] suicidal ideations Ativan [Lorazepam] Vomiting Azithromycin Intolerance [place] Anaphylaxis [place] Anaphylaxis pickles Fish Anaphylaxis Levofloxacin In D5w [...] 2006, deloris (more content not included)... Normal [facility] CRP SerPl HS-mCncon 07-25-19 25 CRP High sensitivity method [Mass/Vol] 0.9 mg/L Normal <3.1 [facility] Comment on above: Order Comment: Speci men Type: BLOOD SPECIMEN Ordering Facility: [facility] Address: [address] [place], [place] [address] Result Comment: hsCR P < 1.0 mg/L, relative risk is low hsCRP 1.0-3.0 mg/L, relative risk is average hsCRP > 3.0 mg/L, relative risk is high Reference: Yunior TA, Chen GA, Lopez TOM, et al. Markers of Inflammation and Cardiovascular Disease. Application to Clinical and Public Health Practice. A Statement for Healthcare Professionals from the Centers for Disease Control and Prevention and the [place] [employer]. Circulation 2003;107:499-511. Performed By: #### 1 9123-9, 00086-8 #### [facility] CLIA [id number] [address] [place] [address] [place] [id number] 07-24-2024 ECG01 Ventricular Rate : 6 4 BPM Atrial Rate : 64 BPM P-R Interval : 156 ms QRS Duration : 84 ms Q-T Interval : 426 ms QTC Calculation(Bazett) : 439 ms Calculated P [place] : 29 degrees Calculated R [place] : 259 degrees Calculated T [place] : 62 degrees NORMAL SINUS RHYTHM BIATRIAL ENLARGEMENT RIGHT SUPERIOR AXIS DEVIATION LEFT VENTRICULAR HYPERTROPHY RIGHT VENTRICULAR HYPERTROPHY NONSPECIFIC ST ABNORMALITY ABNORMAL ECG Confirmed by MERCY BRADFORD MD ([id number]) on 08/25/2024 3:54:02 PM NAME : MICHELLE MITCHELL PID : [id number] : 1980 Gender : Female Race : ORD : Procedure Date : Jul 24 2024 17:42:54 Edit Date : Aug 25 2024 15:54:04 Diagnosis: NORMAL SINUS RHYTHM BIATRIAL ENLARGEMENT RIGHT SUPERIOR AXIS DEVIATION LEFT VENTRICULAR HYPERTROPHY RIGHT VENTRICULAR HYPERTROPHY NONSPECIFIC ST ABNORMALITY ABNORMAL ECG Confirmed by MERCY BRADFORD MD (65) on 08/25/2024 3:54:02 PM Test Reason : HA Location : 453 : [id number] 11 Overread By : MERCY BRADFORD MD Edited By : MERCY BRADFORD MD Referred By : CTS, Acquired by : Carlos Eduardo BONNER [facility] ECHOon 07-24-2024 Echocardiography Echocardiography Rep ort: Transthoracic Echo [facility] Bedside Date of service: 07/24/2024 3:02:30 PM [employer] Ordering physician: TEJAL RODRÍGUEZ Indication: Shortness of [...] CC echocardiographic exam performed on 04/25/2021 ([facility]). Mobile echodensity reported today as above. MICKI may better assesss. * * * Final * * * [employer] : [id number] Normal [facility] ESR Westergren method (Bld) [Velocity]on 07-24-2024 ESR (Bld) [Velocity] 2 mm/h Normal 0-[address] [facility] Comment on above: Order Comment: Speci men Type: BLOOD SPECIMENOrdering Facility: [facility] Address: [address] [place] [address] Performed By: #### 4 537-7 ####[facility] [id number] [place] [address] [place] HCG Preg Ur Qlon 07-24-2024 HCG ( test) Ql (U) Negative Normal Negative [facility] Comment on above: Order Comment: Speci men Type: BLOOD SPECIMEN Ordering Facility: [facility] Address: [address] [place] [address] Result Comment: This test is intended to aid in the early detection of . Very dilute urine samples, as indicated by a low specific gravity, may not contain reimbursement representative levels of hCG. This test detects [...] for . Performed By: #### 1 9123-9, 49064-2 #### [facility] CLIA [id number] [address] [place] [address] [place] HISTORY PHYSICALon HISTORY PHYSICAL HNO ID: [id number] Author: CASE FONSECA MD Service: Cardiovascular Medicine Author Type: Physician Type: H&P Filed: 07/25/2024 10:09 Note Text: [facility] CARDIOVASCULAR MEDICINE HISTORY AND PHYSICAL Michelle Mitchell [id number] PRIMARY SERVICE: Cardiovascular Medicine: Imaging DATE OF [...] states she began having abdominal issues around [facility], [facility]GD/ colonoscopy, multiple biopsies taken. [...] transplant d/t HOCM. Family follows with Dr. Link. Patient endorses unintentional weight gain, excessive sweating, [...] TRANSVENOUS PACEMAKER INSERTION Apr. 2006 ICD implant, [facility] ANESTHESIA TUBAL LIGATION/TRANSECTION APPENDECTOMY 05/05/2014 , [...] 10 mg (more content not included)... Normal [facility] NT-proBNP SerPl-nc 07-24 Natriuretic peptide.B prohormone N-Terminal [Mass/Vol] 3054 pg/mL High <125 [facility] Comment on above: Order Comment: David horton Type: BLOOD SPECIMEN Ordering Facility: [facility] Address: [address] [place] [address] Performed By: #### 5 8410-2 #### [facility] CLIA [id number] [address] [place], [place] [address] [place] [address] [place] PTT, ANTICOAGULANT THERAPYon 07-24-2024 aPTT Coag (PPP) [Time] 32.1 s Normal 23.0-32.4 [facility] Comment on above: Order Comment: David horton Type: BLOOD SPECIMEN Ordering Facility: [facility] Address: [address] [place] [address] Performed By: #### 1 9123-9, 29129-8 #### [facility] CLIA [id number] [address] [place] [address] [place] TOXICOLOGY SCREEN, ROUTINE U RINEon 07-24-2024 Amphetamines Confirm (U) [Mass/Vol] Negative Normal Negative [facility] Comment on above: Order Comment: Speci men Type: BLOOD SPECIMEN Ordering Facility: [facility] Address: [address] [place] [address] Result Comment: Cuto ff threshold at 1000 ng/mL. Performed By: #### 1 9123-9, 25273-6 #### [facility] CLIA [id number] [address] [place] [address] [place] BARBITURATES, URINE Negative Normal Negative [facility] Comment on above: Order Comment: Speci men Type: BLOOD SPECIMEN Ordering Facility: [facility] Address: [address] [place] [address] Result Comment: Cuto ff threshold at 200 ng/mL. Performed By: #### 1 9123-9, 24593-4 #### [facility] CLIA [id number] [address] [place] [address] [place] BENZODIAZEPINES, UR Negative Normal Negative [facility] Comment on above: Order Comment: Speci men Type: BLOOD SPECIMEN Ordering Facility: [facility] Address: [address] [place] [address] Result Comment: Cuto ff threshold at 200 ng/mL. Performed By: #### 1 9123-9, 18169-6 #### [facility] CLIA [id number] [address] [place] [address] [place] Cannabinoids Screen Ql (U) Negative Normal Negative [facility] Comment on above: Order Comment: Speci men Type: BLOOD SPECIMEN Ordering Facility: [facility] Address: [address] [place] [address] Result Comment: Cuto ff threshold at 50 ng/mL. Performed By: #### 1 9123-9, 98836-1 #### [facility] CLIA [id number] [address] [place] [address] [place] Cocaine Ql (U) Negative Normal Negative [facility] Comment on above: Order Comment: Speci men Type: BLOOD SPECIMEN Ordering Facility: [facility] Address: [address] [place] [address] Result Comment: Cuto ff threshold at 300 ng/mL. Performed By: #### 1 9123-9, 50326-8 #### [facility] CLIA [id number] [address] [place] [address] [place] Ethanol (U) [Mass/Vol] <11 Normal <11 [facility] Comment on above: Order Comment: Speci men Type: BLOOD SPECIMEN Ordering Facility: [facility] Address: [address] [place] [address] Performed By: #### 1 91239, 41639-3 #### [facility] CLIA [id number] [address] [place] [address] [place] Opiates Screen Ql (U) Negative Normal Negative [facility] Comment on above: Order Comment: Speci men Type: BLOOD SPECIMEN Ordering Facility: [facility] Address: [address] [place] [address] Result Comment: Cuto ff threshold at 300 ng/mL. Performed By: #### 1 91239, 60991-4 #### [facility] CLIA [id number] [address] [place] [address] [place] oxyCODONE cutoff Screen (U) [Mass/Vol] Positive Abnormal Negative [facility] Comment on above: Order Comment: Speci men Type: BLOOD SPECIMEN Ordering Facility: [facility] Address: [address] [place] [address] Result Comment: Cuto ff threshold at 100 ng/mL. Performed By: #### 1 9123-9, 58359-5 #### [facility] CLIA [id number] [address] [place], [place] [address] [place] Phencyclidine Ql (U) Negative Normal Negative [facility] Comment on above: Order Comment: Speci men Type: BLOOD SPECIMEN Ordering Facility: [facility] Address: [address] [place] [address] Result Comment: Cuto ff threshold at 25 ng/mL. Performed By: #### 1 9123-9, 13302-8 #### [facility] CLIA [id number] [address] [place] [address] [place] TYPE + SCREENon 07-24-2024 ABO A Normal [facility] Comment on above: Order Comment: Speci men Type: BLOOD SPECIMEN Ordering Facility: [facility] Address: [address] [place] [address] Performed By: #### 5 8410-2 #### [facility] CLIA [id number] [address] [place] [address] [place] Rh Nom (Bld) Positive Normal [facility] Comment on above: Order Comment: Speci men Type: BLOOD SPECIMEN Ordering Facility: [facility] Address: [address] [place] [address] Performed By: #### 5 8410-2 #### [facility] CLIA [id number] [address] [place], [place] [address] [place] TYPE AND SCREEN EXPIRATION 07/27/2024 23:59 Normal [facility] Comment on above: Order Comment: Speci men Type: BLOOD SPECIMEN Ordering Facility: [facility] Address: [address] [place] [address] Performed By: #### 5 8410-2 #### [facility] CLIA [id number] [address] [place] [address] [place] Urinalysis complete panel (U )on 07-24-2024 Bacteria LM.HPF (Urine sed) [#/Area] Negative Normal Negative [facility] Comment on above: Order Comment: Speci men Type: BLOOD SPECIMEN Ordering Facility: [facility] Address: [address] [place] [address] Performed By: #### 1 9122-11, 59660-3 #### [facility] CLIA [id number] [address] [place] [address] [place] Bilirubin Ql (U) Negative Normal Negative [facility] Comment on above: Order Comment: Speci men Type: BLOOD SPECIMEN Ordering Facility: [facility] Address: [address] [place] [address] Performed By: #### 1 9122-11, 79943-6 #### [facility] CLIA [id number] [address] [place] [address] [place] Clarity (Unsp spec) Clear Normal Clear [facility] Comment on above: Order Comment: Speci men Type: BLOOD SPECIMEN Ordering Facility: [facility] Address: [address] [place] [address] Performed By: #### 1 9122-11, 15042-4 #### [facility] CLIA [id number] [address] [place] [address] [place] Color (U) Yellow Normal Yellow [facility] Comment on above: Order Comment: Speci men Type: BLOOD SPECIMEN Ordering Facility: [facility] Address: [address] [place] [address] Performed By: #### 1 9122-11, 55514-5 #### [facility] CLIA [id number] [address] [place] [address] [place] Epithelial cells LM.HPF (Urine sed) [#/Area] None Seen Normal [facility] Comment on above: Order Comment: Speci men Type: BLOOD SPECIMEN Ordering Facility: [facility] Address: [address] [place] [address] Performed By: #### 1 9122-11, 73600-5 #### [facility] CLIA [id number] [address] [place] [id number] [place] Glucose Test strip (U) [Mass/Vol] Trace Abnormal Negative [facility] Comment on above: Order Comment: Speci men Type: BLOOD SPECIMEN Ordering Facility: [facility] Address: [address] [place] [address] Performed By: #### 1 9123-9, 07456-2 #### [facility] CLIA [id number] [address] [place], [place] [address] [place] Hemoglobin Ql (U) Negative Normal Negative [facility] Comment on above: Order Comment: Speci men Type: BLOOD SPECIMEN Ordering Facility: [facility] Address: [address] [place] [address] Performed By: #### 1 9123-9, 92791-5 #### [facility] CLIA [id number] [address] [place] [address] [place] Hyaline casts (Urine sed) [#/Area] 1-3 /LPF Abnormal 0 /LPF [facility] Comment on above: Order Comment: Speci men Type: BLOOD SPECIMEN Ordering Facility: [facility] Address: [address] [place] [address] Performed By: #### 1 9123-9, 24454-3 #### [facility] CLIA [id number] [address] [place], [place] [address] [place] Ketones Ql (U) Negative Normal Negative [facility] Comment on above: Order Comment: Speci men Type: BLOOD SPECIMEN Ordering Facility: [facility] Address: [address] [place] [address] Performed By: #### 1 9123-9, 27743-3 #### [facility] CLIA [id number] [address] [place], [place] [address] [place] Leukocyte esterase Test strip Ql (U) Negative Normal Negative [facility] Comment on above: Order Comment: Speci men Type: BLOOD SPECIMEN Ordering Facility: [facility] Address: [address] [place] [address] Performed By: #### 1 9123-9, #### [facility] CLIA [id number] [address] [place] [address] [place] Nitrite Ql (U) Negative Normal Negative [facility] Comment on above: Order Comment: Speci men Type: BLOOD SPECIMEN Ordering Facility: [facility] Address: [address] [place] [address] Performed By: #### 1 919, #### [facility] CLIA [id number] [address] [place] [address] [place] pH (U) 7.5 [pH] Normal <8.5 [facility] Comment on above: Order Comment: Speci men Type: BLOOD SPECIMEN Ordering Facility: [facility] Address: [address] [place] [address] Performed By: #### 1 91239, #### [facility] CLIA [id number] [address] [place] [address] [place] Protein (U) [Mass/Vol] Negative Normal Negative [facility] Comment on above: Order Comment: Speci men Type: BLOOD SPECIMEN Ordering Facility: [facility] Address: [address] [place] [address] Performed By: #### 1 239, #### [facility] CLIA [id number] [address] [place] [address] [place] RBC LM.HPF (Urine sed) [#/Area] 0-2 /HPF Normal 0-2 /HPF [facility] Comment on above: Order Comment: Speci men Type: BLOOD SPECIMEN Ordering Facility: [facility] Address: [address] [place] [address] Performed By: #### 1 23, 36357-0 #### [facility] CLIA [id number] [address] [place] [address] [place] Specific gravity (U) [Rel density] 1.007 Normal 1.005-1.03 0 [facility] Comment on above: Order Comment: Speci men Type: BLOOD SPECIMEN Ordering Facility: [facility] Address: [address] [place] [address] Performed By: #### 1 9123-9, 51368-6 #### [facility] CLIA [id number] [address] [place] [address] [place] Urobilinogen Ql (U) 0.2 EU/dL Normal 0.2-1.0 EU/dL [facility] Comment on above: Order Comment: Speci men Type: BLOOD SPECIMEN Ordering Facility: [facility] Address: [address] [place] [address] Performed By: #### 1 9123-9, 41456-0 #### [facility] IA [id number] [address] [place] [address] [place] WBC LM.HPF (Urine sed) [#/Area] 0-5 /HPF Normal 0-5 /HPF [facility] Comment on above: Order Comment: Speci men Type: BLOOD SPECIMEN Ordering Facility: [facility] Address: [address] [place] [address] Performed By: #### 1 9123-9, 13499-5 #### [facility] IA [id number] [address] [place] [address] [place] XR ABDOMEN 1V [...] loops of bowel. No focal bony abnormality. Animal Keeper Head: PSCB Transcribe Date/Time: Jul 24 2024 6:40P Dictated by : ANASTASIA WILLSON MD This examination was interpreted and the report reviewed and electronically signed by: ANASTASIA WILLSON MD on Jul 24 2024 6:42PM EST [id number] Normal [facility] 12 Lead EKGon 07-23-2024 12 Lead EKG Normal [facility] Absolute lymphocyte countOrd ered By: Willian Ovalles on 07-23-2024 Lymphocytes Auto (Unsp spec) [#/Vol] 0.52 10*3/uL Low 0.83-4.51 [facility] Absolute neutrophil countOrd ered By: iWllian Ovalles on 07-23-2024 Neutrophils (Bld) [#/Vol] 19.1 10*3/uL High 2.0-7.7 [facility] Anion gap in Serum or Plasma Ordered By: Willian Ovalles on 07-23-2024 Anion gap [Moles/Vol] 13 mmol/L 5-15 [facility] Automated lymphocyte count a s percentage of total leukocytesOrdered By: Willian Ovalles on 07-23-2024 Lymphocytes/100 WBC Auto (Unsp spec) 2.5 % Low 19-41 [facility] BUN/creatinine ratioOrdered By: Willian Ovalles on 07-23-2024 Urea nitrogen/Creatinine [Mass ratio] 32.9 mg/mg High 10-20 [facility] Basic Metabolic Profile (BMP )on 07-23-2024 BUN/CRE 32.9 RATIO High 10- [facility] Comment on above: Performed By: #### L 100.0100, L500.2500 ####[facility] [address] [place], [place], [address] Calcium [Mass/Vol] 9.4 mg/dL Normal 7.6-11.0 [facility] Comment on above: Performed By: #### L 100.0100, L500.2500 ####[facility] [address] [place], [address] Chloride [Moles/Vol] 100 mmol/L Normal 98-108 [facility] Comment on above: Performed By: #### L 100.0100, L500.2500 ####[facility] [address] [place], [address] CO2 [Moles/Vol] 23.1 mmol/L Normal 21.0-32.0 [facility] Comment on above: Performed By: #### L 100.0100, L500.2500 ####[facility] [address] [place], [address] Creatinine [Mass/Vol] 0.93 mg/dL Normal 0.70-1.20 [facility] Comment on above: Performed By: #### L 100.0100, L500.2500 ####[facility] [address] [place], [address] ECRCL 66.66 ml/min Normal 50-250 [facility] Comment on above: Performed By: #### L 100.0100, L500.2500 ####[facility] [address] [place], [address] GAP 13 Normal 5-15 [facility] Comment on above: Performed By: #### L 100.0100, L500.2500 ####[facility] [address] [place], [address] GFR/1.73 sq M.predicted among non-blacks MDRD (S/P/Bld) [Vol rate/Area] 78 mL/min/{1.73_m2} Normal >60 [facility] Comment on above: Result Comment: mL/m in/1.73m2 CKD-EPI Creatinine Equation (2020) Performed By: #### L 100.0100, L500.2500 ####[facility] [address] [place], [address] Glucose [Mass/Vol] 99 mg/dL Normal 70-99 [facility] Comment on above: Performed By: #### L 100.0100, L500.2500 ####[facility] [address] [place], [address] Potassium [Moles/Vol] 4.6 mmol/L Normal 3.3-5.1 [facility] Comment on above: Result Comment: Hemo lysis present, Results??could be affected.?? Performed By: #### L 100.0100, L500.2500 ####[facility] [address] [place], [address] Sodium [Moles/Vol] 136 mmol/L Normal 133-145 [facility] Comment on above: Performed By: #### L 100.0100, L500.2500 ####[facility] [address] [place], [address] Urea nitrogen [Mass/Vol] 30 mg/dL High 4-19 [facility] Comment on above: Performed By: #### L 100.0100, L500.2500 ####[facility] [address] [place], [address] Basophil percentageOrdered B y: Willian Josr on 07-23-2024 Basophils/100 WBC (Bld) 0.2 % 0-1 [facility] CBC W/Diff, Automatedon 07-12 Absolute Lymph 0.52 X10 3/uL Low 0.83-4.51 [facility] Comment on above: Performed By: #### L 100.0100, L500.2500 ####[facility] [address] [place], [address] Absolute Neut 19.1 X10 3/uL High 2.0-7.7 [facility] Comment on above: Performed By: #### L 100.0100, L500.2500 ####[facility] [address] [place], [address] Basophils/100 WBC (Bld) 0.2 % Normal 0-1 [facility] Comment on above: Performed By: #### L 100.0100, L500.2500 ####[facility] [address] [place], [address] Eosinophils/100 WBC (Bld) 0.0 % Normal 0-5 [facility] Comment on above: Performed By: #### L 100.0100, L500.2500 ####[facility] [address] [place], [address] Erythrocyte distribution width (RBC) [Ratio] 13.9 % Normal 11.6-14.6 [facility] Comment on above: Performed By: #### L 100.0100, L500.2500 ####[facility] [address] [place], [address] Hematocrit (Bld) [Volume fraction] 45.5 % Normal 37-47 [facility] Comment on above: Performed By: #### L 100.0100, L500.2500 ####[facility] [address] [place], [address] Hemoglobin (Bld) [Mass/Vol] 15.2 g/dL High 12.0-15.0 [facility] Comment on above: Performed By: #### L 100.0100, L500.2500 ####[facility] [address] [place], [address] IG% 1.500 High 0.0-0.9 [facility] Comment on above: Result Comment: IG% - Immature Granulocytes (promyelocytes, myelocytes andmetamyelocytes) > 1% indicates that a LEFT SHIFT is Present. Performed By: #### L 100.0100, L500.2500 ####[facility] [address] [place], [address] Lymphocytes/100 WBC (Bld) 2.5 % Low 19-41 [facility] Comment on above: Performed By: #### L 100.0100, L500.2500 ####[facility] [address] [place], [address] MCH (RBC) [Entitic mass] 32.4 pg High 27.0-32.0 [facility] Comment on above: Performed By: #### L 100.0100, L500.2500 ####[facility] [address] [place], [address] MCHC (RBC) [Mass/Vol] 33.4 g/dL Normal 32-36 [facility] Comment on above: Performed By: #### L 100.0100, L500.2500 ####[facility] [address] [place], [address] MCV (RBC) [Entitic vol] 97.0 fL Normal 81-99 [facility] [facility] Comment on above: Performed By: #### L 100.0100, L500.2500 ####[facility] [address] [place], [address] Monocytes/100 WBC (Bld) 2.5 % Normal 0-10 [facility] Comment on above: Performed By: #### L 100.0100, L500.2500 ####[facility] [address] [place], [address] Neutrophils/100 WBC (Bld) 93.3 % High 47-70 [facility] Comment on above: Performed By: #### L 100.0100, L500.2500 ####[facility] [address] [place], [address] Nucleated RBC (Bld) [#/Vol] 0 10*3/uL Normal 0-5 [facility] Comment on above: Performed By: #### L 100.0100, L500.2500 ####[facility] [address] [place], [address] Platelet mean volume (Bld) [Entitic vol] 10.6 fL Normal 6.2-12.0 [facility] Comment on above: Performed By: #### L 100.0100, L500.2500 ####[facility] [address] [place], [address] Platelets (Bld) [#/Vol] 372 10*3/uL Normal 150-450 [facility] Comment on above: Performed By: #### L 100.0100, L500.2500 ####[facility] [address] [place], [address] RBC (Bld) [#/Vol] 4.69 10*6/uL Normal 4.2-5.4 [facility] Comment on above: Performed By: #### L 100.0100, L500.2500 ####[facility] [address] [place], [address] RDW SD 49.4 fl High 35.1-43.9 [facility] Comment on above: Performed By: #### L 100.0100, L500.2500 ####[facility] [address] [place], [address] WBC (Bld) [#/Vol] 20.5 10*3/uL High 4.4-11.0 [facility] Comment on above: Performed By: #### L 100.0100, L500.2500 ####[facility] [address] [place], [address] Carbon dioxide, total [Moles /volume] in Central venous bloodOrdered By: Willian Ovalles on 07-23-2024 CO2 [Moles/Vol] 23.1 mmol/L 21.0-32.0 [facility] Chloride assayOrdered By: Andrew Ovalles on 07-23-2024 Chloride [Moles/Vol] 100 mmol/L 98-108 [facility] Eosinophil percentageOrdered By: Willian Ovalles on 07-23-2024 Eosinophils/100 WBC (Bld) 0.0 % 0-5 [facility] Erythrocyte distribution wid th ratioOrdered By: Willian Ovalles on 07-23-2024 Erythrocyte distribution width (RBC) [Ratio] 13.9 % 11.6-14.6 [facility] Erythrocyte distribution wid th standard deviationOrdered By: Willian Ovalles on 07-23-2024 Erythrocyte distribution width (RBC) [Ratio] 49.4 fl High 35.1-43.9 [facility] Glomerular filtration rate ( GFR) estimation/1.73 sq m using serum, plasma, or whole bOrdered By: Willian Ovalles on 07-23-2024 GFR/1.73 sq M.predicted among non-blacks MDRD (S/P/Bld) [Vol rate/Area] 78 mL/min/{1.73_m2} >60 [facility] Comment on above: mL/min/1.73m2 CKD-EP I Creatinine Equation (2020) Hematocrit Auto (Bld) [Volum e fraction]Ordered By: Willian Ovalles on 07-23-2024 Hematocrit (Bld) [Volume fraction] 45.5 % 37-47 [facility] Hemoglobin measurementOrdere d By: Willian Ovalles on 07-23-2024 Hemoglobin (Bld) [Mass/Vol] 15.2 g/dL High 12.0-15.0 [facility] Immature granulocytes/100 WB C Auto (Bld)Ordered By: Willian Ovalles on 07-23-2024 Immature granulocytes/100 WBC (Bld) 1.500 % High 0.0-0.9 [facility] Comment on above: IG% - Immature Granu locytes (promyelocytes, myelocytes and metamyelocytes) > 1% indicates that a LEFT SHIFT is Present. MCV (mean corpuscular volume ) determinationOrdered By: Willian Ovalles on 07-23-2024 MCV (RBC) [Entitic vol] 97.0 fL 81-99 [facility] Mean corpuscular hemoglobin (MCH) determinationOrdered By: Willian Ovalles on 07-23-2024 MCH (RBC) [Entitic mass] 32.4 pg High 27.0-32.0 [facility] Mean corpuscular hemoglobin concentration (MCHC) determinationOrdered By: Willian Ovalles on 07-23-2024 MCHC (RBC) [Mass/Vol] 33.4 g/dL 32-36 [facility] Mean platelet volume determi nationOrdered By: Willian Ovalles on 07-23-2024 Platelet mean volume (Bld) [Entitic vol] 10.6 fL 6.2-12.0 [facility] Monocyte percentageOrdered B y: Willian Ovalles on 07-23-2024 Monocytes/100 WBC (Bld) 2.5 % 0-10 [facility] Neutrophil percentageOrdered By: Willian Ovalles on 07-23-2024 Neutrophils/100 WBC (Bld) 93.3 % High 47-70 [facility] Nucleated red blood cell per centageOrdered By: Willian Ovalles on 07-23-2024 Nucleated RBC/100 WBC (Bld) [Ratio] 0 % 0-5 [facility] Platelet countOrdered By: Andrew Ovalles on 07-23-2024 Platelets (Bld) [#/Vol] 372 10*3/uL 150-450 [facility] Potassium measurement (mass/ volume)Ordered By: Willian Ovalles on 07-23-2024 Potassium (Unsp spec) [Mass/Vol] 4.6 mmol/L 3.3-5.1 [facility] Comment on above: Hemolysis present, R esults could be affected. RBC Auto (Bld) [#/Vol]Ordere d By: Willian Ovalles on 07-23-2024 RBC (Bld) [#/Vol] 4.69 10*6/uL 4.2-5.4 [facility] Serum creatinine measurement (mass/volume)Ordered By: Willian Ovalles on 07-23-2024 Creatinine [Mass/Vol] 0.93 mg/dL 0.70-1.20 [facility] Serum glucose measurement (m ass/volume)Ordered By: Willian Ovalles on 07-23-2024 Glucose [Mass/Vol] 99 mg/dL 70-99 [facility] Serum or plasma calcium leslie urement (mass/volume)Ordered By: Willian Ovalles on 07-23-2024 Calcium [Mass/Vol] 9.4 mg/dL 7.6-11.0 [facility] Serum or plasma urea nitroge n measurement (mass/volume)Ordered By: Willian Ovalles on 07-23-2024 Urea nitrogen [Mass/Vol] 30 mg/dL High 4-19 [facility] Sodium levelOrdered By: Willian Ovalles on 07-23-2024 Sodium [Moles/Vol] 136 mmol/L 133-145 [facility] Venous duplex ultrasound rep ortOrdered By: Willian Colón on 07-23-2024 US Vein [facility] [address] [place] [address] Venous Duplex US - Wan Extrem 07/23/24 0803 MR#: [id number] Acct: [id number] Name: MICHELLE MITCHELL Rep #:[id number] : 1980 43 From: Willian Arciniega Attending Dr: Dr. 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 VL/Venous Duplex US - Wan Extrem [...] DO; Dr. Willian Ovalles DO; Dr. Dex Wilkinson MD ~ Date Dictated: 07/23/24 08 Date Transcribed: 07/23/24 115 Animal Keeper Head: Signed [facility] Work Phone: White blood cell (WBC) count Ordered By: Willian Ovalles on 07-23-2024 WBC (Bld) [#/Vol] 20.5 10*3/uL High 4.4-11.0 [facility] Basic Metabolic Profile (BMP )on 07-22-2024 BUN/CRE 27.6 RATIO High 10-20 [facility] Comment on above: Performed By: #### L 100.0100, L500.2500 ####[facility] [address] [place], [address] Calcium [Mass/Vol] 9.1 mg/dL Normal 7.6-11.0 [facility] Comment on above: Performed By: #### L 100.0100, L500.2500 ####[facility] [address] [place], [address] Chloride [Moles/Vol] 100 mmol/L Normal 98-108 [facility] Comment on above: Performed By: #### L 100.0100, L500.2500 ####[facility] [address] [place], [address] CO2 [Moles/Vol] 20.0 mmol/L Low 21.0-32.0 [facility] Comment on above: Performed By: #### L 100.0100, L500.2500 ####[facility] [address] [place], [address] Creatinine [Mass/Vol] 1.05 mg/dL Normal 0.70-1.20 [facility] Comment on above: Performed By: #### L 100.0100, L500.2500 ####[facility] [address] [place], [address] ECRCL 59.04 ml/min Normal 50-250 [facility] Comment on above: Performed By: #### L 100.0100, L500.2500 ####[facility] [address] [place], [address] GAP 15 Normal 5-15 [facility] Comment on above: Performed By: #### L 100.0100, L500.2500 ####[facility] [address] [place], [address] GFR/1.73 sq M.predicted among non-blacks MDRD (S/P/Bld) [Vol rate/Area] 67 mL/min/{1.73_m2} Normal >60 [facility] Comment on above: Result Comment: mL/m in/1.73m2 CKD-EPI Creatinine Equation (2020) Performed By: #### L 100.0100, L500.2500 ####[facility] [address] [place], [address] Glucose [Mass/Vol] 112 mg/dL High 70-99 [facility] Comment on above: Performed By: #### L 100.0100, L500.2500 ####[facility] [address] [place], [address] Potassium [Moles/Vol] 4.0 mmol/L Normal 3.3-5.1 [facility] Comment on above: Performed By: #### L 100.0100, L500.2500 ####[facility] [address] [place], [address] Sodium [Moles/Vol] 135 mmol/L Normal 133-145 [facility] Comment on above: Performed By: #### L 100.0100, L500.2500 ####[facility] [address] [place], [address] Urea nitrogen [Mass/Vol] 29 mg/dL High 4-19 [facility] Comment on above: Performed By: #### L 100.0100, L500.2500 ####[facility] [address] [place], [address] Blood cultureOrdered By: Amber Ovalles on 07-22-2024 Bacteria identified Cx Nom (Bld) No growth in 5 days. [facility] Bacteria identified Cx Nom (Bld) No growth in 5 days. [facility] CBC W/Diff, Automatedon 05 Absolute Lymph 0.95 X10 3/uL Normal 0.83-4.51 [facility] Comment on above: Performed By: #### L 100.0100, L500.2500 ####[facility] [address] [place], [address] Absolute Neut 13.0 X10 3/uL High 2.0-7.7 [facility] Comment on above: Performed By: #### L 100.0100, L500.2500 ####[facility] [address] [place], [address] Basophils/100 WBC (Bld) 0.3 % Normal 0-1 [facility] Comment on above: Performed By: #### L 100.0100, L500.2500 ####[facility] [address] [place], [address] Eosinophils/100 WBC (Bld) 0.2 % Normal 0-5 [facility] Comment on above: Performed By: #### L 100.0100, L500.2500 ####[facility] [address] [place], [address] Erythrocyte distribution width (RBC) [Ratio] 14.1 % Normal 11.6-14.6 [facility] Comment on above: Performed By: #### L 100.0100, L500.2500 ####[facility] [address] [place], [address] Hematocrit (Bld) [Volume fraction] 39.1 % Normal 37-47 [facility] Comment on above: Performed By: #### L 100.0100, L500.2500 ####[facility] [address] [place], [address] Hemoglobin (Bld) [Mass/Vol] 12.7 g/dL Normal 12.0-15.0 [facility] Comment on above: Performed By: #### L 100.0100, L500.2500 ####[facility] [address] [place], [address] IG% 1.200 High 0.0-0.9 [facility] Comment on above: Result Comment: IG% - Immature Granulocytes (promyelocytes, myelocytes andmetamyelocytes) > 1% indicates that a LEFT SHIFT is Present. Performed By: #### L 100.0100, L500.2500 ####[facility] [address] [place], [address] Lymphocytes/100 WBC (Bld) 6.4 % Low 19-41 [facility] Comment on above: Performed By: #### L 100.0100, L500.2500 ####[facility] [address] [place], [address] MCH (RBC) [Entitic mass] 32.1 pg High 27.0-32.0 [facility] Comment on above: Performed By: #### L 100.0100, L500.2500 ####[facility] [address] [place], [address] MCHC (RBC) [Mass/Vol] 32.5 g/dL Normal 32-36 [facility] Comment on above: Performed By: #### L 100.0100, L500.2500 ####[facility] [address] [place], [address] MCV (RBC) [Entitic vol] 98.7 fL Normal 81-99 [facility] Comment on above: Performed By: #### L 100.0100, L500.2500 ####[facility] [address] [place], [address] Monocytes/100 WBC (Bld) 4.8 % Normal 0-10 [facility] Comment on above: Performed By: #### L 100.0100, L500.2500 ####[facility] [address] [place], [address] Neutrophils/100 WBC (Bld) 87.1 % High 47-70 [facility] Comment on above: Performed By: #### L 100.0100, L500.2500 ####[facility] [address] [place], [address] Nucleated RBC (Bld) [#/Vol] 0 10*3/uL Normal 0-5 [facility] Comment on above: Performed By: #### L 100.0100, L500.2500 ####[facility] [address] [place], [address] Platelet mean volume (Bld) [Entitic vol] 11.1 fL Normal 6.2-12.0 [facility] Comment on above: Performed By: #### L 100.0100, L500.2500 ####[facility] [address] [place], [address] Platelets (Bld) [#/Vol] 280 10*3/uL Normal 150-450 [facility] Comment on above: Performed By: #### L 100.0100, L500.2500 ####[facility] [address] [place], [address] RBC (Bld) [#/Vol] 3.96 10*6/uL Low 4.2-5.4 [facility] Comment on above: Performed By: #### L 100.0100, L500.2500 ####[facility] [address] [place], [address] RDW SD 51.6 fl High 35.1-43.9 [facility] Comment on above: Performed By: #### L 100.0100, L500.2500 ####[facility] [address] [place], [address] WBC (Bld) [#/Vol] 14.9 10*3/uL High 4.4-11.0 [facility] Comment on above: Performed By: #### L 100.0100, L500.2500 ####[facility] [address] [place], [address] Bilirubin, totalOrdered By: Sergio Whalen on 07-21-2024 Bilirubin [Mass/Vol] 0.59 mg/dL 0.00-1.30 [facility] CBC W/Diff, Automatedon 07-12 Absolute Lymph 0.59 X10 3/uL Low 0.83-4.51 [facility] Comment on above: Performed By: #### L 500.4050, L100.0100, L500.4100, L501.2300 ####[facility] [address] [place], [address] Absolute Neut 15.8 X10 3/uL High 2.0-7.7 [facility] Comment on above: Performed By: #### L 500.4050, L100.0100, L500.4100, L501.2300 ####[facility] [address] [place], [address] Basophils/100 WBC (Bld) 0.2 % Normal 0-1 [facility] Comment on above: Performed By: #### L 500.4050, L100.0100, L500.4100, L501.2300 ####[facility] [address] [place], [address] Eosinophils/100 WBC (Bld) 0.1 % Normal 0-5 [facility] Comment on above: Performed By: #### L 500.4050, L100.0100, L500.4100, L501.2300 ####[facility] [address] [place], [address] Erythrocyte distribution width (RBC) [Ratio] 14.2 % Normal 11.6-14.6 [facility] Comment on above: Performed By: #### L 500.4050, L100.0100, L500.4100, L501.2300 ####[facility] [address] [place], [address] Hematocrit (Bld) [Volume fraction] 41.0 % Normal 37-47 [facility] Comment on above: Performed By: #### L 500.4050, L100.0100, L500.4100, L501.2300 ####[facility] [address] [place], [address] Hemoglobin (Bld) [Mass/Vol] 13.6 g/dL Normal 12.0-15.0 [facility] Comment on above: Performed By: #### L 500.4050, L100.0100, L500.4100, L501.2300 ####[facility] [address] [place], [address] IG% 1.000 High 0.0-0.9 [facility] Comment on above: Result Comment: IG% - Immature Granulocytes (promyelocytes, myelocytes andmetamyelocytes) > 1% indicates that a LEFT SHIFT is Present. Performed By: #### L 500.4050, L100.0100, L500.4100, L501.2300 ####[facility] [address] [place], [address] Lymphocytes/100 WBC (Bld) 3.5 % Low 19-41 [facility] Comment on above: Performed By: #### L 500.4050, L100.0100, L500.4100, L501.2300 ####[facility] [address] [place], [address] MCH (RBC) [Entitic mass] 32.3 pg High 27.0-32.0 [facility] Comment on above: Performed By: #### L 500.4050, L100.0100, L500.4100, L501.2300 ####[facility] [address] [place], [address] MCHC (RBC) [Mass/Vol] 33.2 g/dL Normal 32-36 [facility] Comment on above: Performed By: #### L 500.4050, L100.0100, L500.4100, L501.2300 ####[facility] [address] [place], [address] MCV (RBC) [Entitic vol] 97.4 fL Normal 81-99 [facility] Comment on above: Performed By: #### L 500.4050, L100.0100, L500.4100, L501.2300 ####[facility] [address] [place], [address] Monocytes/100 WBC (Bld) 2.6 % Normal 0-10 [facility] Comment on above: Performed By: #### L 500.4050, L100.0100, L500.4100, L501.2300 ####[facility] [address] [place], [address] Neutrophils/100 WBC (Bld) 92.6 % High 47-70 [facility] Comment on above: Performed By: #### L 500.4050, L100.0100, L500.4100, L501.2300 ####[facility] [address] [place], [address] Nucleated RBC (Bld) [#/Vol] 0 10*3/uL Normal 0-5 [facility] Comment on above: Performed By: #### L 500.4050, L100.0100, L500.4100, L501.2300 ####[facility] [address] [place], [address] Platelet mean volume (Bld) [Entitic vol] 10.3 fL Normal 6.2-12.0 [facility] Comment on above: Performed By: #### L 500.4050, L100.0100, L500.4100, L501.2300 ####[facility] [address] [place], [address] Platelets (Bld) [#/Vol] 307 10*3/uL Normal 150-450 [facility] Comment on above: Performed By: #### L 500.4050, L100.0100, L500.4100, L501.2300 ####[facility] [address] [place], [address] RBC (Bld) [#/Vol] 4.21 10*6/uL Normal 4.2-5.4 [facility] Comment on above: Performed By: #### L 500.4050, L100.0100, L500.4100, L501.2300 ####[facility] [address] [place], [address] RDW SD 51.1 fl High 35.1-43.9 [facility] Comment on above: Performed By: #### L 500.4050, L100.0100, L500.4100, L501.2300 ####[facility] [address] [place], [address] WBC (Bld) [#/Vol] 17.0 10*3/uL High 4.4-11.0 [facility] Comment on above: Performed By: #### L 500.4050, L100.0100, L500.4100, L501.2300 ####[facility] [address] [place], [address] Calculated very low density lipoprotein (VLDL) cholesterol measurementOrdered By: Sergio Whalen on 07-21-2024 Calculated very low density lipoprotein (VLDL) cholesterol measurement 45 mg/dL High 5-40 [facility] Comprehensive Metabolic Prof ilon 07-21-2024 Albumin [Mass/Vol] 4.4 g/dL Normal 3.5-5.0 [facility] Comment on above: Performed By: #### L 500.4050, L100.0100, L500.4100, L501.2300 ####[facility] [address] [place], [address] Albumin/Globulin [Mass ratio] 1.6 {ratio} Normal 0.9-2.4 [facility] Comment on above: Performed By: #### L 500.4050, L100.0100, L500.4100, L501.2300 ####[facility] [address] [place], [address] ALK PHOS 118 U/L High 35-104 [facility] Comment on above: Performed By: #### L 500.4050, L100.0100, L500.4100, L501.2300 ####[facility] [address] [place], [address] ALT [Catalytic activity/Vol] 35 U/L Normal <=34 [facility] Comment on above: Performed By: #### L 500.4050, L100.0100, L500.4100, L501.2300 ####[facility] [address] [place], [address] AST [Catalytic activity/Vol] 29 U/L Normal <=31 [facility] Comment on above: Performed By: #### L 500.4050, L100.0100, L500.4100, L501.2300 ####[facility] [address] [place], [address] Bilirubin [Mass/Vol] 0.59 mg/dL Normal 0.00-1.30 [facility] Comment on above: Performed By: #### L 500.4050, L100.0100, L500.4100, L501.2300 ####[facility] [address] [place], [address] BUN/CRE 23.1 RATIO High 10-20 [facility] Comment on above: Performed By: #### L 500.4050, L100.0100, L500.4100, L501.2300 ####[facility] [address] [place], [address] Calcium [Mass/Vol] 9.3 mg/dL Normal 7.6-11.0 [facility] Comment on above: Performed By: #### L 500.4050, L100.0100, L500.4100, L501.2300 ####[facility] [address] [place], [address] Chloride [Moles/Vol] 102 mmol/L Normal 98-108 [facility] Comment on above: Performed By: #### L 500.4050, L100.0100, L500.4100, L501.2300 ####[facility] [address] [place], [address] CO2 [Moles/Vol] 19.4 mmol/L Low 21.0-32.0 [facility] Comment on above: Performed By: #### L 500.4050, L100.0100, L500.4100, L501.2300 ####[facility] [address] [place], [address] Creatinine [Mass/Vol] 0.99 mg/dL Normal 0.70-1.20 [facility] Comment on above: Performed By: #### L 500.4050, L100.0100, L500.4100, L501.2300 ####[facility] [address] [place], [address] ECRCL 62.62 ml/min Normal 50-250 [facility] Comment on above: Performed By: #### L 500.4050, L100.0100, L500.4100, L501.2300 ####[facility] [address] [place], [address] GAP 14 Normal 5-15 [facility] Comment on above: Performed By: #### L 500.4050, L100.0100, L500.4100, L501.2300 ####[facility] [address] [place], [address] GFR/1.73 sq M.predicted among non-blacks MDRD (S/P/Bld) [Vol rate/Area] 72 mL/min/{1.73_m2} Normal >60 [facility] Comment on above: Result Comment: mL/m in/1.73m2 CKD-EPI Creatinine Equation (2020) Performed By: #### L 500.4050, L100.0100, L500.4100, L501.2300 ####[facility] [address] [place], [address] Globulin (S) [Mass/Vol] 2.6 g/dL Normal 2.2-4.2 [facility] Comment on above: Performed By: #### L 500.4050, L100.0100, L500.4100, L501.2300 ####[facility] [address] [place], [address] Glucose [Mass/Vol] 131 mg/dL High 70-99 [facility] Comment on above: Performed By: #### L 500.4050, L100.0100, L500.4100, L501.2300 ####[facility] [address] [place], [address] Potassium [Moles/Vol] 4.8 mmol/L Normal 3.3-5.1 [facility] Comment on above: Performed By: #### L 500.4050, L100.0100, L500.4100, L501.2300 ####[facility] [address] [place], [address] Sodium [Moles/Vol] 135 mmol/L Normal 133-145 [facility] Comment on above: Performed By: #### L 500.4050, L100.0100, L500.4100, L501.2300 ####[facility] [address] [place], [address] T PROT 7.0 g/dL Normal 5.9-8.4 [facility] Comment on above: Performed By: #### L 500.4050, L100.0100, L500.4100, L501.2300 ####[facility] [address] [place], [address] Urea nitrogen [Mass/Vol] 23 mg/dL High 4-19 [facility] Comment on above: Performed By: #### L 500.4050, L100.0100, L500.4100, L501.2300 ####[facility] [address] [place], [address] Consultation - Cardiologyon 07-21-2024 Consultation - Cardiology Normal [facility] Echo Completeon 07-21-2024 Echo Complete Normal [facility] Echocardiogram study reportO rdered By: Saman Clay on 07-21-2024 Study report [facility] [address] [place] [address] Echo Complete 07/21/24 1046 MR#: [id number] Acct: [id number] Name: MICHELLE MITCHELL Rep #:[id number] 1 : 1980 43 From: Saman Clay [...] Ordering Physician: Sergio Umaña Referring Physician: Dex Wilkinson Performed By: Maru Kothari RDCS 07/21/241335 Date _ Saman Clay MD CC: Dr. Sergio Umaña DO; Dr. Willian Ovalles DO; Dr. Dex Wilkinson MD ~ Date Dictated: 07/21/241045 Date Transcribed: 07/21/241335 Animal Keeper Head: Signed [facility] Work Phone: Hemoglobin A1con 07-21-2024 HbA1c (Bld) [Mass fraction] 5.6 % Normal <=5.6 [facility] Comment on above: Result Comment: Norm al < 5.7 % Prediabetic 5.7 - 6.4 % Diabetic >or= 6.5 % Please note range changes. Performed By: #### L 501.9520, L501.8151 ####[facility] [address] [place], [address] L499.0043on 07-21-2024 Trop T High Sen 37 ng/L High <=14 [facility] Comment on above: Performed By: #### L 499.0043 ####[facility] [address] [place], [address] LDL calc ser/plasOrdered By: Sergio Whalen on 07-21-2024 Cholesterol in LDL [Mass/Vol] 92 mg/dL [facility] Comment on above: Zuzqnjbxll=549-011 m g/dL & Higher Otfu=354 mg/dL or greater Laboratory - Chemistry and C hemistry - challengeOrdered By: Sergio Whalen on 07-21-2024 AST [Catalytic activity/Vol] 29 U/L <32 [facility] Lipid Profileon 07-21-2024 CHOL:HDL 4.43 Normal [facility] Comment on above: Performed By: #### L 500.4050, L100.0100, L500.4100, L501.2300 ####[facility] [address] [place], [address] Cholesterol [Mass/Vol] 177 mg/dL Normal <=200 [facility] Comment on above: Result Comment: Chol esterol level, Desirable <200 mg/dLBorderline high cholesterol 200-239 mg/dLHigh cholesterol >=240 mg/dLRecommendations of the NCEP Adult Treatment Panel for thefollowing risk-cutoff thresholds for the [place] Americanpopulation. Performed By: #### L 500.4050, L100.0100, L500.4100, L501.2300 ####[facility] [address] [place], [address] Cholesterol in HDL [Mass/Vol] 40 mg/dL Normal [facility] Comment on above: Result Comment: Sophie onal Cholesterol Education Program (NCEP) guidelines:<40 mg/dL: Low HDL-cholesterol (major risk factor for CHD)>= 60 mg/dL: High HDL-cholesterol (negative risk factor forCHD)HDL-cholesterol is affected by a number of factors, e.g.smoking, exercise, hormones, sex and age. Performed By: #### L 500.4050, L100.0100, L500.4100, L501.2300 ####[facility] [address] [place], [address] Cholesterol in LDL [Mass/Vol] 92 mg/dL Normal [facility] Comment on above: Result Comment: Bord vakulc=315-499 mg/dL Higher Vjop=347 mg/dL or greater Performed By: #### L 500.4050, L100.0100, L500.4100, L501.2300 ####[facility] [address] [place], [address] Cholesterol in VLDL [Mass/Vol] 45 mg/dL High 5-40 [facility] Comment on above: Performed By: #### L 500.4050, L100.0100, L500.4100, L501.2300 ####[facility] [address] [place], [address] Triglyceride [Mass/Vol] 224 mg/dL High [facility] Comment on above: Result Comment: The drugs N-Acetylcysteine and Metamizole may falselydepress this assay.Normal range: <150 mg/dLBorderline High: 150-199 mg/dLHigh: 200-499 mg/dLVery High: >500 mg/dL Performed By: #### L 500.4050, L100.0100, L500.4100, L501.2300 ####[facility] [address] [place], [address] Magnesiumon 07-21-2024 Magnesium [Mass/Vol] 1.9 mg/dL Normal 1.5-2.2 [facility] Comment on above: Performed By: #### L 501.5200 ####[facility] [address] [place], [place], [address] No Panel InformationOrdered By: Sergio Whalen on 07-21-2024 29 U/L <32 [facility] Phosphoruson 07-21-2024 Phosphate [Mass/Vol] 3.7 mg/dL Normal 2.7-4.5 [facility] Comment on above: Performed By: #### L 500.4050, L100.0100, L500.4100, L501.2300 ####[facility] [address] [place], [place], [id number] Screening total cholesterol/ high density lipoprotein (HDL) cholesterol ratioOrdered By: Sergio Whalen on 07-21-2024 Cholesterol.total/Choles terol in HDL [Mass ratio] 4.43 {ratio} [facility] Serum globulin measurementOr dered By: Sergio Whalen on 07-21-2024 Globulin (S) [Mass/Vol] 2.6 g/dL 2.2-4.2 [facility] Serum or plasma alanine hair otransferase (ALT) measurementOrdered By: Sergio Whalen on 07-21-2024 ALT [Catalytic activity/Vol] 35 U/L <35 [facility] Serum or plasma albumin leslie urement (mass/volume)Ordered By: Sergio Whalen on 07-21-2024 Albumin [Mass/Vol] 4.4 g/dL 3.5-5.0 [facility] Serum or plasma albumin/glob ulin mass ratioOrdered By: Sergio Whalen on 07-21-2024 Albumin/Globulin [Mass ratio] 1.6 {ratio} 0.9-2.4 [facility] Serum or plasma alkaline delfin sphatase measurementOrdered By: Sergio Whalen on 07-21-2024 ALP [Catalytic activity/Vol] 118 U/L High 35-104 [facility] Serum or plasma cholesterol in HDL measurement (mass/volume)Ordered By: Sergio Whalen on 07-21-2024 Cholesterol in HDL [Mass/Vol] 40 mg/dL >40 [facility] Comment on above: National Cholesterol Education Program (NCEP) guidelines:<40 mg/dL: Low HDL-cholesterol (major risk factor for CHD)>= 60 mg/dL: High HDL-cholesterol (negative risk factor for CHD)HDL-cholesterol is affected by a number of factors, e.g. smoking, exercise, hormones, sex and age. Serum or plasma cholesterol measurement (mass/volume)Ordered By: Sergio Whalen on 07-21-2024 Cholesterol [Mass/Vol] 177 mg/dL <201 [facility] [place] Comment on above: Cholesterol level, D esirable <200 mg/dLBorderline high cholesterol 200-239 mg/dLHigh cholesterol >=240 mg/dLRecommendations of the NCEP Adult Treatment Panel for the following risk-cutoff thresholds for the [place] population. Thyroid Stim Hormone (TSH)on 07-21-2024 TSH 1.400 uIU/mL Normal 0.300-4.20 0 [facility] Comment on above: Order Comment: ADD O N Performed By: #### L 501.9520, L501.9985 ####[facility] [address] [place], [place], [id number] Total proteinOrdered By: Louis Whalen on 07-21-2024 Protein [Mass/Vol] 7.0 g/dL 5.9-8.4 [facility] Triglycerides measurementOrd ered By: Sergio Whalen on 07-21-2024 Triglyceride [Mass/Vol] 224 mg/dL High <199 [facility] Comment on above: The drugs N-Acetylcy steine and Metamizole may falsely depress this assay. Normal range: <150 mg/dLBorderline High: 150-199 mg/dLHigh: 200-499 mg/dLVery High: >500 mg/dL Venous Duplex US - Wan Extre mon 07-21-2024 Venous Duplex US - Wan Extrem Normal [facility] Abdomen/Pelvis W IV Cont ONL Yon 07-20-2024 Abdomen/Pelvis W IV Cont ONLY Normal [facility] Absolute lymphocyte countOrd ered By: Carlos Nair on 07-20-2024 Lymphocytes Auto (Unsp spec) [#/Vol] 0.38 10*3/uL Low 0.83-4.51 [facility] Absolute neutrophil countOrd ered By: Carlos Nair on 07-20-2024 Neutrophils (Bld) [#/Vol] 13.6 10*3/uL High 2.0-7.7 [facility] Anion gap in Serum or Plasma Ordered By: Carlos Nair on 07-20-2024 Anion gap [Moles/Vol] 13 mmol/L 5-15 [facility] Automated lymphocyte count a s percentage of total leukocytesOrdered By: Carlos Nair on 07-20-2024 Lymphocytes/100 WBC Auto (Unsp spec) 2.7 % Low 19-41 [facility] BUN/creatinine ratioOrdered By: Carlos Nair on 07-20-2024 Urea nitrogen/Creatinine [Mass ratio] 21.8 mg/mg High 10-20 [facility] Basophil percentageOrdered B y: Carlos Nair on 07-20-2024 Basophils/100 WBC (Bld) 0.1 % 0-1 [facility] Bilirubin Test strip Ql (U)O rdered By: Carlos Nair on 07-20-2024 Bilirubin Ql (U) Negative Negative [facility] Bilirubin directOrdered By: Carlos Nair on 07-20-2024 Bilirubin.direct [Mass/Vol] 0.29 mg/dL 0.00-0.30 [facility] Bilirubin, totalOrdered By: Carlos Nair on 07-20-2024 Bilirubin [Mass/Vol] 0.61 mg/dL 0.00-1.30 [facility] CBC W/Diff, Automatedon Absolute Lymph 0.38 X10 3/uL Low 0.83-4.51 [facility] Comment on above: Performed By: #### L 300.8000, L100.0100, L501.2450, L500.4050, L500.3400, L503.7505 ####[facility] [address] [place], [address] Absolute Neut 13.6 X10 3/uL High 2.0-7.7 [facility] Comment on above: Performed By: #### L 300.8000, L100.0100, L501.2450, L500.4050, L500.3400, L503.7505 ####[facility] [address] [place], [address] Basophils/100 WBC (Bld) 0.1 % Normal 0-1 [facility] Comment on above: Performed By: #### L 300.8000, L100.0100, L501.2450, L500.4050, L500.3400, L503.7505 ####[facility] [address] [place], [address] Eosinophils/100 WBC (Bld) 0.0 % Normal 0-5 [facility] Comment on above: Performed By: #### L 300.8000, L100.0100, L501.2450, L500.4050, L500.3400, L503.7505 ####[facility] [address] [place], [address] Erythrocyte distribution width (RBC) [Ratio] 14.1 % Normal 11.6-14.6 [facility] Comment on above: Performed By: #### L 300.8000, L100.0100, L501.2450, L500.4050, L500.3400, L503.7505 ####[facility] [address] [place], [address] Hematocrit (Bld) [Volume fraction] 40.2 % Normal 37-47 [facility] Comment on above: Performed By: #### L 300.8000, L100.0100, L501.2450, L500.4050, L500.3400, L503.7505 ####[facility] [address] [place], [address] Hemoglobin (Bld) [Mass/Vol] 13.2 g/dL Normal 12.0-15.0 [facility] Comment on above: Performed By: #### L 300.8000, L100.0100, L501.2450, L500.4050, L500.3400, L503.7505 ####[facility] [address] [place], [address] IG% 1.000 High 0.0-0.9 [facility] Comment on above: Result Comment: IG% - Immature Granulocytes (promyelocytes, myelocytes andmetamyelocytes) > 1% indicates that a LEFT SHIFT is Present. Performed By: #### L 300.8000, L100.0100, L501.2450, L500.4050, L500.3400, L503.7505 ####[facility] [address] [place], [address] Lymphocytes/100 WBC (Bld) 2.7 % Low 19-41 [facility] Comment on above: Performed By: #### L 300.8000, L100.0100, L501.2450, L500.4050, L500.3400, L503.7505 ####[facility] [address] [place], [address] MCH (RBC) [Entitic mass] 32.1 pg High 27.0-32.0 [facility] Comment on above: Performed By: #### L 300.8000, L100.0100, L501.2450, L500.4050, L500.3400, L503.7505 ####[facility] [address] [place], [address] MCHC (RBC) [Mass/Vol] 32.8 g/dL Normal 32-36 [facility] Comment on above: Performed By: #### L 300.8000, L100.0100, L501.2450, L500.4050, L500.3400, L503.7505 ####[facility] [address] [place], [address] MCV (RBC) [Entitic vol] 97.8 fL Normal 81-99 [facility] Comment on above: Performed By: #### L 300.8000, L100.0100, L501.2450, L500.4050, L500.3400, L503.7505 ####[facility] [address] [place], [address] Monocytes/100 WBC (Bld) 1.5 % Normal 0-10 [facility] Comment on above: Performed By: #### L 300.8000, L100.0100, L501.2450, L500.4050, L500.3400, L503.7505 ####[facility] [address] [place], [address] Neutrophils/100 WBC (Bld) 94.7 % High 47-70 [facility] Comment on above: Performed By: #### L 300.8000, L100.0100, L501.2450, L500.4050, L500.3400, L503.7505 ####[facility] [address] [place], [address] Nucleated RBC (Bld) [#/Vol] 0 10*3/uL Normal 0-5 [facility] Comment on above: Performed By: #### L 300.8000, L100.0100, L501.2450, L500.4050, L500.3400, L503.7505 ####[facility] [address] [place], [address] Platelet mean volume (Bld) [Entitic vol] 10.3 fL Normal 6.2-12.0 [facility] Comment on above: Performed By: #### L 300.8000, L100.0100, L501.2450, L500.4050, L500.3400, L503.7505 ####[facility] [address] [place], [address] Platelets (Bld) [#/Vol] 303 10*3/uL Normal 150-450 [facility] Comment on above: Performed By: #### L 300.8000, L100.0100, L501.2450, L500.4050, L500.3400, L503.7505 ####[facility] [address] [place], [address] RBC (Bld) [#/Vol] 4.11 10*6/uL Low 4.2-5.4 [facility] Comment on above: Performed By: #### L 300.8000, L100.0100, L501.2450, L500.4050, L500.3400, L503.7505 ####[facility] [address] [place], [address] RDW SD 51.0 fl High 35.1-43.9 [facility] Comment on above: Performed By: #### L 300.8000, L100.0100, L501.2450, L500.4050, L500.3400, L503.7505 ####[facility] [address] [place], [address] WBC (Bld) [#/Vol] 14.3 10*3/uL High 4.4-11.0 [facility] Comment on above: Performed By: #### L 300.8000, L100.0100, L501.2450, L500.4050, L500.3400, L503.7505 ####[facility] [address] [place], [address] CTA Chest W/WO Contraston CTA Chest W/WO Contrast Normal [facility] Carbon dioxide, total [Moles /volume] in Central venous bloodOrdered By: Carlos Nair on 07-20-2024 CO2 [Moles/Vol] 19.0 mmol/L Low 21.0-32.0 [facility] Chest 1 View (Portable)on Chest 1 View (Portable) Normal [facility] Chloride assayOrdered By: Brandy Nair on 07-20-2024 Chloride [Moles/Vol] 104 mmol/L 98-108 [facility] Comprehensive Metabolic Prof ilon 07-20-2024 Albumin/Globulin [Mass ratio] 1.7 {ratio} Normal 0.9-2.4 [facility] Comment on above: Performed By: #### L 300.8000, L100.0100, L501.2450, L500.4050, L500.3400, L503.7505 ####[facility] [address] [place], [address] BUN/CRE 21.8 RATIO High 10-20 [facility] Comment on above: Performed By: #### L 300.8000, L100.0100, L501.2450, L500.4050, L500.3400, L503.7505 ####[facility] [address] [place], [address] Calcium [Mass/Vol] 9.3 mg/dL Normal 7.6-11.0 [facility] Comment on above: Performed By: #### L 300.8000, L100.0100, L501.2450, L500.4050, L500.3400, L503.7505 ####[facility] [address] [place], [address] Chloride [Moles/Vol] 104 mmol/L Normal 98-108 [facility] Comment on above: Performed By: #### L 300.8000, L100.0100, L501.2450, L500.4050, L500.3400, L503.7505 ####[facility] [address] [place], [address] CO2 [Moles/Vol] 19.0 mmol/L Low 21.0-32.0 [facility] Comment on above: Performed By: #### L 300.8000, L100.0100, L501.2450, L500.4050, L500.3400, L503.7505 ####[facility] [address] [place], [address] Creatinine [Mass/Vol] 0.88 mg/dL Normal 0.70-1.20 [facility] Comment on above: Performed By: #### L 300.8000, L100.0100, L501.2450, L500.4050, L500.3400, L503.7505 ####[facility] [address] [place], [address] ECRCL 70.45 ml/min Normal 50-250 [facility] Comment on above: Performed By: #### L 300.8000, L100.0100, L501.2450, L500.4050, L500.3400, L503.7505 ####[facility] [address] [place], [address] GAP 13 Normal 5-15 [facility] Comment on above: Performed By: #### L 300.8000, L100.0100, L501.2450, L500.4050, L500.3400, L503.7505 ####[facility] [address] [place], [address] GFR/1.73 sq M.predicted among non-blacks MDRD (S/P/Bld) [Vol rate/Area] 83 mL/min/{1.73_m2} Normal >60 [facility] Comment on above: Result Comment: mL/m in/1.73m2 CKD-EPI Creatinine Equation (2020) Performed By: #### L 300.8000, L100.0100, L501.2450, L500.4050, L500.3400, L503.7505 ####[facility] [address] [place], [address] Glucose [Mass/Vol] 171 mg/dL High 70-99 [facility] Comment on above: Performed By: #### L 300.8000, L100.0100, L501.2450, L500.4050, L500.3400, L503.7505 ####[facility] [address] [place], [address] Potassium [Moles/Vol] 4.4 mmol/L Normal 3.3-5.1 [facility] Comment on above: Performed By: #### L 300.8000, L100.0100, L501.2450, L500.4050, L500.3400, L503.7505 ####[facility] [address] [place], [address] Sodium [Moles/Vol] 135 mmol/L Normal 133-145 [facility] Comment on above: Performed By: #### L 300.8000, L100.0100, L501.2450, L500.4050, L500.3400, L503.7505 ####[facility] [address] [place], [address] Urea nitrogen [Mass/Vol] 19 mg/dL Normal 4-19 [facility] Comment on above: Performed By: #### L 300.8000, L100.0100, L501.2450, L500.4050, L500.3400, L503.7505 ####[facility] [address] [place], [address] D-Dimer Quantitative (DVT/PE )on 07-20-2024 D-DIMER QUANT 1.06 FEU/ug/m Invalid Interpretation Code 0.27-0.49 [facility] Comment on above: Result Comment: D-Di denice ELEVATED (>0.49): Additional studies and clinicalassessments are indicated to conclude diagnosis of:Deep Vein Thrombosis (DVT) or Pulmonary Embolism (PE)CRITICAL VALUE CALLED TO 07/20/24 Naga Aguilera.RESULTS READ BACK BY SAME. Performed By: #### L 300.8000, L100.0100, L501.2450, L500.4050, L500.3400, L503.7505 ####[facility] [address] [place], [address] Emergency Department Summary on 07-20-2024 Emergency Department Summary Normal [facility] Eosinophil percentageOrdered By: Carlos Nair on 07-20-2024 Eosinophils/100 WBC (Bld) 0.0 % 0-5 [facility] Erythrocyte distribution wid th ratioOrdered By: Carlos Nair on 07-20-2024 Erythrocyte distribution width (RBC) [Ratio] 14.1 % 11.6-14.6 [facility] Erythrocyte distribution wid th standard deviationOrdered By: Carlos Nair on 07-20-2024 Erythrocyte distribution width (RBC) [Ratio] 51.0 fl High 35.1-43.9 [facility] Glomerular filtration rate ( GFR) estimation/1.73 sq m using serum, plasma, or whole bOrdered By: Carlos Nair on 07-20-2024 GFR/1.73 sq M.predicted among non-blacks MDRD (S/P/Bld) [Vol rate/Area] 83 mL/min/{1.73_m2} >60 [facility] Comment on above: mL/min/1.73m2 CKD-EP I Creatinine Equation (2020) H AND P Exam - Hospitaliston 07-20-2024 H&P Exam - Hospitalist Normal [facility] [place] Hematocrit Auto (Bld) [Volum e fraction]Ordered By: Carlos Nair on 07-20-2024 Hematocrit (Bld) [Volume fraction] 40.2 % 37-47 [facility] Hemoglobin A1c percentageOrd ered By: Sergio Whalen on 07-20-2024 HbA1c (Bld) [Mass fraction] 5.6 % <5.7 [facility] Comment on above: Normal < 5.7 % Predi abetic 5.7 - 6.4 % Diabetic >or= 6.5 % Please note range changes. Hemoglobin measurementOrdere d By: Carlos Nair on 07-20-2024 Hemoglobin (Bld) [Mass/Vol] 13.2 g/dL 12.0-15.0 [facility] Hyaline casts LM.LPF (Urine sed) [#/Area]Ordered By: Carlos Nair on 07-20-2024 Hyaline casts (Urine sed) [#/Area] 5 /[LPF] 0-5 [facility] Immature granulocytes/100 WB C Auto (Bld)Ordered By: Carlos Nair on 07-20-2024 Immature granulocytes/100 WBC (Bld) 1.000 % High 0.0-0.9 [facility] Comment on above: IG% - Immature Granu locytes (promyelocytes, myelocytes and metamyelocytes) > 1% indicates that a LEFT SHIFT is Present. Ketones Test strip Ql (U)Ord ered By: Carlos Nair on 07-20-2024 Ketones Ql (U) Negative Negative [facility] L499.0042on 07-20-2024 Trop T High Sen 36 ng/L High <=14 [facility] Comment on above: Performed By: #### L 499.0042 ####[facility] [address] [place], [address] L501.4021on 07-20-2024 Trop T High Sen 27 ng/L High <=14 [facility] Comment on above: Performed By: #### L 501.4021 ####[facility] [address] [place], [address] L503.7505on 07-20-2024 Natriuretic peptide B (Bld) [Mass/Vol] 6468 pg/mL High <=450 [facility] Comment on above: Result Comment: Hear t Failure Unlikely: < 300 pg/mLHeart Failure Likely< 50 Years: > 450 pg/mL50-75 Years: > 900 pg/mL>75 Years: > 1800 pg/mL Performed By: #### L 300.8000, L100.0100, L501.2450, L500.4050, L500.3400, L503.7505 ####[facility] [address] [place], [address] Laboratory - Chemistry and C hemistry - challengeOrdered By: Carlos Nair on 07-20-2024 AST [Catalytic activity/Vol] 26 U/L <32 [facility] Lipaseon 07-20-2024 Lipase [Catalytic activity/Vol] 32 U/L Normal 13-75 [facility] Comment on above: Result Comment: Liam rader note:LIPASE revised reference range effective 22.New Lipase methodology. Expected to produce lower valuesthan the previous assay method.NEW Reference Range: 13 - 75 U/L Performed By: #### L 300.8000, L100.0100, L501.2450, L500.4050, L500.3400, L503.7505 ####[facility] [address] [place], [address] Lipase measurementOrdered By : Carlos Nair on 07-20-2024 Lipase [Catalytic activity/Vol] 32 U/L 13-75 [facility] Comment on above: Please note:LIPASE r evised reference range effective 22. New Lipase methodology. Expected to produce lower values than the previous assay method. NEW Reference Range: 13 - 75 U/L Liver Profileon 07-20-2024 Albumin [Mass/Vol] 4.3 g/dL Normal 3.5-5.0 [facility] Comment on above: Performed By: #### L 300.8000, L100.0100, L501.2450, L500.4050, L500.3400, L503.7505 ####[facility] [address] [place], [address] ALK PHOS 116 U/L High 35-104 [facility] Comment on above: Performed By: #### L 300.8000, L100.0100, L501.2450, L500.4050, L500.3400, L503.7505 ####[facility] [address] [place], [address] ALT [Catalytic activity/Vol] 34 U/L Normal <=34 [facility] Comment on above: Performed By: #### L 300.8000, L100.0100, L501.2450, L500.4050, L500.3400, L503.7505 ####[facility] [address] [place], [address] AST [Catalytic activity/Vol] 26 U/L Normal <=31 [facility] Comment on above: Performed By: #### L 300.8000, L100.0100, L501.2450, L500.4050, L500.3400, L503.7505 ####[facility] [address] [place], [address] Bilirubin [Mass/Vol] 0.61 mg/dL Normal 0.00-1.30 [facility] Comment on above: Performed By: #### L 300.8000, L100.0100, L501.2450, L500.4050, L500.3400, L503.7505 ####[facility] [address] [place], [address] Bilirubin.direct [Mass/Vol] 0.29 mg/dL Normal 0.00-0.30 [facility] Comment on above: Performed By: #### L 300.8000, L100.0100, L501.2450, L500.4050, L500.3400, L503.7505 ####[facility] [address] [place], [address] Globulin (S) [Mass/Vol] 2.5 g/dL Normal 2.2-4.2 [facility] Comment on above: Performed By: #### L 300.8000, L100.0100, L501.2450, L500.4050, L500.3400, L503.7505 ####[facility] [address] [place], [address] T PROT 6.8 g/dL Normal 5.9-8.4 [facility] Comment on above: Performed By: #### L 300.8000, L100.0100, L501.2450, L500.4050, L500.3400, L503.7505 ####[facility] [address] [place], [address] MCV (mean corpuscular volume ) determinationOrdered By: Carlos Nair on 07-20-2024 MCV (RBC) [Entitic vol] 97.8 fL 81-99 [facility] Magnesium measurement (mass/ volume)Ordered By: Sergio Whalen on 07-20-2024 Magnesium (Unsp spec) [Mass/Vol] 1.9 mg/dL 1.5-2.2 [facility] Mean corpuscular hemoglobin (MCH) determinationOrdered By: Carlos Nair on 07-20-2024 MCH (RBC) [Entitic mass] 32.1 pg High 27.0-32.0 [facility] Mean corpuscular hemoglobin concentration (MCHC) determinationOrdered By: Carlos Nair on 07-20-2024 MCHC (RBC) [Mass/Vol] 32.8 g/dL 32-36 [facility] Mean platelet volume determi nationOrdered By: Carlos Nair on 07-20-2024 Platelet mean volume (Bld) [Entitic vol] 10.3 fL 6.2-12.0 [facility] Microscopic analysis of urin e for red blood cells (RBC)Ordered By: Carlos Nair on 07-20-2024 Microscopic analysis of urine for red blood cells (RBC) 0-5 SEEN /hpf 0-5 [facility] Monocyte percentageOrdered B y: Carlos Nair on 07-20-2024 Monocytes/100 WBC (Bld) 1.5 % 0-10 [facility] Mucus LM Ql (Urine sed)Order ed By: Carlos Nair on 07-20-2024 Mucus Ql (Urine sed) 1+ /hpf [facility] Natriuretic peptide.B prohor abbey N-Terminal [Mass/volume] in Serum or PlasmaOrdered By: Carlos Nair on 07-20-2024 Natriuretic peptide.B prohormone N-Terminal [Mass/Vol] 6468 pg/mL High <450 [facility] Comment on above: Heart Failure Unlike ly: < 300 pg/mLHeart Failure Likely< 50 Years: > 450 pg/mL50-75 Years: > 900 pg/mL>75 Years: > 1800 pg/mL Neutrophil percentageOrdered By: Carlos Nair on 07-20-2024 Neutrophils/100 WBC (Bld) 94.7 % High 47-70 [facility] Nitrite Test strip Ql (U)Ord ered By: Carlos Nair on 07-20-2024 Nitrite Ql (U) Negative Negative [facility] Nucleated red blood cell per centageOrdered By: Carlos Nair on 07-20-2024 Nucleated RBC/100 WBC (Bld) [Ratio] 0 % 0-5 [facility] Platelet countOrdered By: Brandy Nair on 07-20-2024 Platelets (Bld) [#/Vol] 303 10*3/uL 150-450 [facility] Potassium measurement (mass/ volume)Ordered By: Carlos Nair on 07-20-2024 Potassium (Unsp spec) [Mass/Vol] 4.4 mmol/L 3.3-5.1 [facility] ,Urineon 07-20-2024 Beta HCG ( test) Ql (U) Negative Normal [facility] Comment on above: Result Comment: Very dilute urine specimens, as indicated by a low specificgravity, may not contain reimbursement representative levels of hCG.If is still suspected, a first morning urinespecimen should be collected 48 hours later and tested. Performed By: #### L 400.0001, L400.7600 ####[facility] [address] [place], [place], [id number] Protein Test strip Ql (U)Ord ered By: Carlos Nair on 07-20-2024 Protein Ql (U) 100 mg/dl High Negative [facility] RBC Auto (Bld) [#/Vol]Ordere d By: Carlos Nair on 07-20-2024 RBC (Bld) [#/Vol] 4.11 10*6/uL Low 4.2-5.4 [facility] Serum creatinine measurement (mass/volume)Ordered By: Carlos Nair on 07-20-2024 Creatinine [Mass/Vol] 0.88 mg/dL 0.70-1.20 [facility] Serum globulin measurementOr dered By: Carlos Nair on 07-20-2024 Globulin (S) [Mass/Vol] 2.5 g/dL 2.2-4.2 [facility] Serum glucose measurement (m ass/volume)Ordered By: Carlos Nair on 07-20-2024 Glucose [Mass/Vol] 171 mg/dL High 70-99 [facility] Serum or plasma alanine hair otransferase (ALT) measurementOrdered By: Carlos Nair on 07-20-2024 ALT [Catalytic activity/Vol] 34 U/L <35 [facility] Serum or plasma albumin leslie urement (mass/volume)Ordered By: Carlos Nair on 07-20-2024 Albumin [Mass/Vol] 4.3 g/dL 3.5-5.0 [facility] Serum or plasma albumin/glob ulin mass ratioOrdered By: Carlos Nair on 07-20-2024 Albumin/Globulin [Mass ratio] 1.7 {ratio} 0.9-2.4 [facility] Serum or plasma alkaline delfni sphatase measurementOrdered By: Carlos Nair on 07-20-2024 ALP [Catalytic activity/Vol] 116 U/L High 35-104 [facility] Serum or plasma calcium leslie urement (mass/volume)Ordered By: Carlos Nair on 07-20-2024 Calcium [Mass/Vol] 9.3 mg/dL 7.6-11.0 [facility] Serum or plasma urea nitroge n measurement (mass/volume)Ordered By: Carlos Nair on 07-20-2024 Urea nitrogen [Mass/Vol] 19 mg/dL 4-19 [facility] Sodium levelOrdered By: Andrae Nair on 07-20-2024 Sodium [Moles/Vol] 135 mmol/L 133-145 [facility] Squamous epithelial cells de tection in urine sediment by light microscopyOrdered By: Carlos Nair on 07-20-2024 Epithelial cells.squamous LM Ql (Urine sed) 5-10 SEEN /hpf 5-10 [facility] TSH DL <= 0.005 mIU/L QnOrde red By: Sergio Whalen on 07-20-2024 TSH Qn 1.400 uIU/mL 0.300-4.20 0 [facility] Total proteinOrdered By: Jacinto Nair on 07-20-2024 Protein [Mass/Vol] 6.8 g/dL 5.9-8.4 [facility] Troponin T.cardiac [Mass/vol ume] in Serum or Plasma by High sensitivity methodOrdered By: Carlos Nair on 07-20-2024 Troponin T.cardiac High sensitivity method [Mass/Vol] 37 ng/L High <14 [facility] Troponin T.cardiac High sensitivity method [Mass/Vol] 36 ng/L High <14 [facility] Troponin T.cardiac High sensitivity method [Mass/Vol] 27 ng/L High <14 [facility] Urinalysis, Completeon 07-20 BACTERIA 2+ /hpf Normal None Seen [facility] Comment on above: Order Comment: CLEAN CATCH Performed By: #### L 400.0001, L400.7600 ####[facility] [address] [facility] [address] CAST,HYALINE 5-10 SEEN Normal 0-5 [facility] Comment on above: Order Comment: CLEAN CATCH Performed By: #### L 400.0001, L400.7600 ####[facility] [address] [place], [address] EPI,SQUAMOUS 5-10 SEEN Normal 5-10 [facility] Comment on above: Order Comment: CLEAN CATCH Performed By: #### L 400.0001, L400.7600 ####[facility] [address] [place], [address] Mucus Ql (Urine sed) 1+ /hpf Normal [facility] Comment on above: Order Comment: CLEAN CATCH Performed By: #### L 400.0001, L400.7600 ####[facility] [address] [place], [address] RBC 0-5 SEEN Normal 0-5 [facility] Comment on above: Order Comment: CLEAN CATCH Performed By: #### L 400.0001, L400.7600 ####[facility] [address] [place], [address] BILIRUBIN URINE Negative Normal Negative [facility] Comment on above: Order Comment: CLEAN CATCH Performed By: #### L 400.0001, L400.7600 ####[facility] [address] [place], [address] Clarity (U) Clear Normal Clear [facility] Comment on above: Order Comment: CLEAN CATCH Performed By: #### L 400.0001, L400.7600 ####[facility] [address] [place], [address] Color (U) Straw Normal Yellow [facility] Comment on above: Order Comment: CLEAN CATCH Performed By: #### L 400.0001, L400.7600 ####[facility] [address] [place], [address] GLUCOSE, UR Normal Normal Normal [facility] Comment on above: Order Comment: CLEAN CATCH Performed By: #### L 400.0001, L400.7600 ####[facility] [address] [place], [address] KETONE UR Negative Normal Negative [facility] Comment on above: Order Comment: CLEAN CATCH Performed By: #### L 400.0001, L400.7600 ####[facility] [address] [place], [address] LEUK ESTERASE Negative Normal Negative [facility] Comment on above: Order Comment: CLEAN CATCH Performed By: #### L 400.0001, L400.7600 ####[facility] [address] [place], [address] Nitrite Ql (U) Negative Normal Negative [facility] Comment on above: Order Comment: CLEAN CATCH Performed By: #### L 400.0001, L400.7600 ####[facility] [address] [place], [address] OCCULT BLOOD-UR 25 /ul Abnormal Negative [facility] Comment on above: Order Comment: CLEAN CATCH Performed By: #### L 400.0001, L400.7600 ####[facility] [address] [place], [address] pH UR 6.0 Normal 5.0 - 8.0 [facility] Comment on above: Order Comment: CLEAN CATCH Performed By: #### L 400.0001, L400.7600 ####[facility] [address] [place], [address] PROT DIPSTX 100 mg/dl Abnormal Negative [facility] Comment on above: Order Comment: CLEAN CATCH Performed By: #### L 400.0001, L400.7600 ####[facility] [address] [place], [address] SP.GR. DIPSTX 1.020 Normal 1.002-1.03 0 [facility] Comment on above: Order Comment: CLEAN CATCH Performed By: #### L 400.0001, L400.7600 ####[facility] [address] [place], [address] UROBILI Normal Normal Normal [facility] Comment on above: Order Comment: CLEAN CATCH Performed By: #### L 400.0001, L400.7600 ####[facility] [address] [place], [address] WBC 0 SEEN Normal 0-5 [facility] Comment on above: Order Comment: CLEAN CATCH Performed By: #### L 400.0001, L400.7600 ####[facility] [address] [place], [address] Urine clarityOrdered By: Jacinto Nair on 07-20-2024 Clarity (U) Clear Clear [facility] Urine color determinationOrd ered By: Carlos Nari on 07-20-2024 Color (U) Straw Yellow [facility] Urine glucose detectionOrder ed By: Carlos Nair on 07-20-2024 Glucose Ql (U) Normal mg/dl Normal [facility] Urine leukocyte esterase det ection by dipstickOrdered By: Carlos Nair on 07-20-2024 Leukocyte esterase Test strip Ql (U) Negative Negative [facility] Urine pHOrdered By: Carlos mandel on 07-20-2024 pH (U) 6.0 [pH] 5.0 - 8.0 [facility] Urine testOrdered By: Carlos Nair on 07-20-2024 HCG ( test) Ql (U) Negative [facility] Comment on above: Very dilute urine sp ecimens, as indicated by a low specificgravity, may not contain reimbursement representative levels of hCG. If is still suspected, a first morning urinespecimen should be collected 48 hours later and tested. Urine sediment bacteria coun t by microscopy (number/high power field)Ordered By: Carlos Nair on 07-20-2024 Bacteria LM.HPF (Urine sed) [#/Area] 2 /[HPF] None Seen [facility] Urine specific gravity measu rementOrdered By: Carlos Nair on 07-20-2024 Specific gravity (U) [Rel density] 1.020 1.002-1.03 0 [facility] Urine urobilinogen measureme ntOrdered By: Carlos Nair on 07-20-2024 Urobilinogen Ql (U) Normal mg/dl Normal [facility] White blood cell (WBC) count Ordered By: Carlos Nair on 07-20-2024 WBC (Bld) [#/Vol] 14.3 10*3/uL High 4.4-11.0 [facility] White blood cell countOrdere d By: Carlos Nair on 07-20-2024 White blood cell count 0 SEEN /hpf 0-5 [facility] Colonoscopy Reporton 025 Colonoscopy Report Normal [facility] EGD Reporton 07-12-2024 EGD Report Normal [facility] MR/POSTOP.ANEon 07-12-2024 MR/POSTOP.ANE Normal [facility] MR/NSGZARYA7hb 07-12-2024 MR/POSTOPAN2 Normal [facility] Surgery Specimen Level Amber 07-12-2024 Surgery Specimen Level IV Normal [facility] Comment on above: Performed By: #### P SUIV ####[facility] [address] [place], [address] MR/PAT.ANEon 07-11-2024 MR/PAT.ANE Normal [facility] 12 Lead EKG performed by BMS on 07-10-2024 12 Lead EKG performed by BMS [facility] Cardiology Visit Reporton Cardiology Visit Report Normal [facility] MR/PAT.ANEon 07-10-2024 MR/PAT.ANE [facility] CNDSon 07-08-2024 CNDS HNO ID: [id number] Author: DEX WILKINSON MD Service: Family Practice Author Type: Physician Type: Discharge Summary Filed: 07/10/2024 15:10 Note Text: DISCHARGE SUMMARY PATIENT NAME: Michelle [...] MEDICAL TEAM: [facility] Doctor: Dex Wilkinson MD Primary Care Provider: Dex Wilkinson MD My Medical Team Members: Treatment Team: Attending Provider: Dex Wilkinson MD Consulting: Sergio White MD MY CONDITION AT DISCHARGE: Stable REASON [...] Patient/Parents to call for appointment?: Yes Dex Wilkinson MD [phone] [facility] [address] PCP Requested Referral GENERAL: alert, no distress, [...] Sensation grossly intact., Treatment Team: Consulting: Sergio White MD FOLLOW-UP APPOINTMENTS ALREADY SCHEDULED WITH A [facility] PROVIDER: No future appointments. ALLERGIES Allergen Reactions Prozac [Fluoxetine * Other: See Comments suicidal ideations Ativan [Lorazepam] Vomiting Azithromycin Intolerance [place] Anaphylaxis [place] Anaphylaxis pickles Fish Anaphylaxis Levofloxacin In D5w [...] Your Medications These medications were sent to [id number] - [place] [address] - [address] [place] [address] - [phone] [place], [place] [id number] dicyclomine 10 mg capsule oxyCODONE IR 5 mg immediate release tablet pantoprazole DR 40 mg tablet psyllium 3.4 gram packet sucralfate 1 gram tablet Additional Information Additional Health Information I Need to Kno (more content not included)... Normal [facility] CBC W Auto Differential pane l (Bld)on 07-07-2024 Basophils (Bld) [#/Vol] 0.03 10*3/uL Normal <0.11 [facility] Comment on above: Order Comment: Speci men Type: BLOOD SPECIMENOrdering Facility: [facility] Address: [address] [place] [address] Performed By: #### 5 7021-8 ####[facility] LABORATORYCLIA [id number] [place] [address] [place] Basophils/100 WBC (Bld) 0.3 % Normal [facility] Comment on above: Order Comment: Speci men Type: BLOOD SPECIMENOrdering Facility: [facility] Address: [address] [place] [address] Performed By: #### 5 7021-8 ####[facility] LABORATORYCLIA [id number] [place] [address] [place] Differential cell count method Nom (Bld) Auto Normal [facility] Comment on above: Order Comment: Speci men Type: BLOOD SPECIMENOrdering Facility: [facility] Address: [address] [place] [address] Performed By: #### 5 7021-8 ####[facility]ATORYCLIA [id number] [place] [address] [place] Eosinophils (Bld) [#/Vol] 0.12 10*3/uL Normal <0.46 [facility] Comment on above: Order Comment: Speci men Type: BLOOD SPECIMENOrdering Facility: [facility] Address: [address] [place] [address] Performed By: #### 5 7021-8 ####[facility] LABORATORYCLIA [id number] [address] [place] Eosinophils/100 WBC (Bld) 1.4 % Normal [facility] Comment on above: Order Comment: Speci men Type: BLOOD SPECIMENOrdering Facility: [facility] Address: [address] [place] [address] Performed By: #### 5 7021-8 ####[facility] LABORATORYCLIA [id number] [address] [place] Erythrocyte distribution width (RBC) [Ratio] 14.4 % Normal 11.5-15.0 [facility] Comment on above: Order Comment: Speci men Type: BLOOD SPECIMENOrdering Facility: [facility] Address: [address] [place] [address] Performed By: #### 5 7021-8 ####[facility] LABORATORYCLIA [id number] [address] Hematocrit (Bld) [Volume fraction] 41.1 % Normal 36.0-46.0 [facility] Comment on above: Order Comment: Speci men Type: BLOOD SPECIMENOrdering Facility: [facility] Address: [address] [place] [address] Performed By: #### 5 7021-8 ####[facility] LABORATORYCLIA [id number] [address] [place] Hemoglobin (Bld) [Mass/Vol] 13.4 g/dL Normal 11.5-15.5 [facility] Comment on above: Order Comment: Speci men Type: BLOOD SPECIMENOrdering Facility: [facility] Address: [address] [place] [address] Performed By: #### 5 7021-8 ####[facility] LABORATORYCLIA [id number] [address] [place] Immature granulocytes (Bld) [#/Vol] 0.03 10*3/uL Normal <0.10 [facility] Comment on above: Order Comment: Speci men Type: BLOOD SPECIMENOrdering Facility: [facility] Address: [address] [place] [address] Performed By: #### 5 7021-8 ####[facility] LABORATORYCLIA [id number] [address] Immature granulocytes/100 WBC (Bld) 0.3 % Normal [facility] Comment on above: Order Comment: Speci men Type: BLOOD SPECIMENOrdering Facility: [facility] Address: [address] [place] [address] Performed By: #### 5 7021-8 ####[facility] LABORATORYCLIA [id number] [place] [address] [place] Lymphocytes (Bld) [#/Vol] 0.98 10*3/uL Low 1.00-4.00 [facility] Comment on above: Order Comment: Speci men Type: BLOOD SPECIMENOrdering Facility: [facility] Address: [address] [place] [address] Performed By: #### 5 7021-8 ####[facility] LABORATORYCLIA [id number] [address] Lymphocytes/100 WBC (Bld) 11.1 % Normal [facility] Comment on above: Order Comment: Speci men Type: BLOOD SPECIMENOrdering Facility: [facility] Address: [address] [place] [address] Performed By: #### 5 7021-8 ####[facility] LABORATORYCLIA [id number] [place] [address] [place] MCH (RBC) [Entitic mass] 31.8 pg Normal 26.0-34.0 [facility] Comment on above: Order Comment: Speci men Type: BLOOD SPECIMENOrdering Facility: [facility] Address: [address] [place] [address] Performed By: #### 5 7021-8 ####[facility] LABORATORYCLIA [id number] [address] MCHC (RBC) [Mass/Vol] 32.6 g/dL Normal 30.5-36.0 [facility] Comment on above: Order Comment: Speci men Type: BLOOD SPECIMENOrdering Facility: [facility] Address: [address] [place] [address] Performed By: #### 5 7021-8 ####[facility] LABORATORYCLIA [id number] [address] MCV (RBC) [Entitic vol] 97.6 fL Normal 80.0-100.0 [facility] Comment on above: Order Comment: Speci men Type: BLOOD SPECIMENOrdering Facility: [facility] Address: [address] [place] [address] Performed By: #### 5 7021-8 ####[facility] LABORATORYCLIA [id number] [address] [place] Monocytes (Bld) [#/Vol] 0.44 10*3/uL Normal <0.87 [facility] Comment on above: Order Comment: Speci men Type: BLOOD SPECIMENOrdering Facility: [facility] Address: [address] [place] [address] Performed By: #### 5 7021-8 ####[facility] LABORATORYCLIA [id number] [address] Monocytes/100 WBC (Bld) 5.0 % Normal [facility] Comment on above: Order Comment: Speci men Type: BLOOD SPECIMENOrdering Facility: [facility] Address: [address] [place] [address] Performed By: #### 5 7021-8 ####[facility] LABORATORYCLIA [id number] [address] [place] Neutrophils (Bld) [#/Vol] 7.19 10*3/uL Normal 1.45-7.50 [facility] Comment on above: Order Comment: Speci men Type: BLOOD SPECIMENOrdering Facility: [facility] Address: [address] [place] [address] Performed By: #### 5 7021-8 ####[facility] LABORATORYCLIA [id number] [address] [place] Neutrophils/100 WBC (Bld) 81.9 % Normal [facility] Comment on above: Order Comment: Speci men Type: BLOOD SPECIMENOrdering Facility: [facility] Address: [address] [place] [address] Performed By: #### 5 7021-8 ####[facility] LABORATORYCLIA [id number] [place] [address] [place] Nucleated RBC (Bld) [#/Vol] 10*3/uL Normal <0.01 [facility] Comment on above: Order Comment: Speci men Type: BLOOD SPECIMENOrdering Facility: [facility] Address: [address] [place] [address] Performed By: #### 5 7021-8 ####[facility] LABORATORYCLIA [id number] [address] [place] Nucleated RBC/100 WBC (Bld) [Ratio] 0.0 /100 WBC Normal [facility] Comment on above: Order Comment: Speci men Type: BLOOD SPECIMENOrdering Facility: [facility] Address: [address] [place] [address] Performed By: #### 5 7021-8 ####[facility] LABORATORYCLIA [id number] [place] [address] [place] Platelet mean volume (Bld) [Entitic vol] 10.3 fL Normal 9.0-12.7 [facility] Comment on above: Order Comment: Speci men Type: BLOOD SPECIMENOrdering Facility: [facility] Address: [address] [place] [address] Performed By: #### 5 7021-8 ####[facility] LABORATORYCLIA [id number] [place] [address] [place] Platelets (Bld) [#/Vol] 241 10*3/uL Normal 150-400 [facility] Comment on above: Order Comment: Speci men Type: BLOOD SPECIMENOrdering Facility: [facility] Address: [address] [place] [address] Performed By: #### 5 7021-8 ####[facility] LABORATORYCLIA [id number] [address] RBC (Bld) [#/Vol] 4.21 10*6/uL Normal 3.90-5.20 [facility] Comment on above: Order Comment: Speci men Type: BLOOD SPECIMENOrdering Facility: [facility] Address: [address] [place] [address] Performed By: #### 5 7021-8 ####[facility] LABORATORYCLIA [id number] [address] WBC (Bld) [#/Vol] 8.79 10*3/uL Normal 3.70-11.00 [facility] Comment on above: Order Comment: Speci men Type: BLOOD SPECIMENOrdering Facility: [facility] Address: [address] [place] [address] Performed By: #### 5 7021-8 ####[facility] LABORATORYCLIA [id number] [address] CONSULT PROGon 07-07-2024 CONSULT PROG HNO ID: [id number] Author: KAYLYN ELLIS MD Service: Gastroenterology Author [...] recent colonoscopy report completed December 2023 at [facility] - Consider cardiology consult for #8 - [...] looser consistency and with small volume [facility]. [facility] colonoscopy records were incomplete as report was [...] Cooperative. NAD EYES: No scleral icterus SKIN: Tappan in color. No jaundice LUNGS: Decreased to [...] 3.9 4.1 CHLOR 104 102 104 CO2 BUN 7 9 12 CREAT 0.81 0.85 [...] Ratio <2. (more content not included)... Normal [facility] Comprehensive metabolic 2000 panelon 07-07-2024 Albumin [Mass/Vol] 3.7 g/dL Low 3.9-4.9 [facility] Comment on above: Order Comment: Speci men Type: BLOOD SPECIMENOrdering Facility: [facility] Address: [address] [place] [address] Performed By: #### 2 4323-8 ####[facility] LABORATORYCLIA [id number] [address] STATES [place] [facility] ALP [Catalytic activity/Vol] 118 U/L Normal 34-123 [facility] Comment on above: Order Comment: Speci men Type: BLOOD SPECIMENOrdering Facility: [facility] Address: [address] [place] [address] Performed By: #### 2 4323-8 ####[facility] LABORATORYCLIA [id number] [place], [place] [address] [place] [address] ALT [Catalytic activity/Vol] 24 U/L Normal 7-38 [facility] Comment on above: Order Comment: Speci men Type: BLOOD SPECIMENOrdering Facility: [facility] Address: [address] [place] [address] Performed By: #### 2 4323-8 ####[facility] LABORATORYCLIA [id number] [place] [address] [place] Anion gap [Moles/Vol] 10 mmol/L Normal 8-15 [facility] Comment on above: Order Comment: Speci men Type: BLOOD SPECIMENOrdering Facility: [facility] Address: [address] [place] [address] Performed By: #### 2 4323-8 ####[facility] LABORATORYCLIA [id number] [address] [place] AST [Catalytic activity/Vol] 20 U/L Normal 13-35 [facility] Comment on above: Order Comment: Speci men Type: BLOOD SPECIMENOrdering Facility: [facility] Address: [address] [place] [address] Performed By: #### 2 4323-8 ####[facility] LABORATORYCLIA [id number] [place] [address] [place] Bilirubin [Mass/Vol] 1.3 mg/dL Normal 0.2-1.3 [facility] Comment on above: Order Comment: Speci men Type: BLOOD SPECIMENOrdering Facility: [facility] Address: [address] [place] [address] Performed By: #### 2 4323-8 ####[facility] LABORATORYCLIA [id number] [address] [place] Calcium [Mass/Vol] 9.0 mg/dL Normal 8.5-10.2 [facility] Comment on above: Order Comment: Speci men Type: BLOOD SPECIMENOrdering Facility: [facility] Address: [address] [place] [address] Performed By: #### 2 4323-8 ####[facility] LABORATORYCLIA [id number] [address] [place] Chloride [Moles/Vol] 104 mmol/L Normal 98-107 [facility] Comment on above: Order Comment: Speci men Type: BLOOD SPECIMENOrdering Facility: [facility] Address: [address] [place] [address] Performed By: #### 2 4323-8 ####[facility] LABORATORYCLIA [id number] [place] [address] [place] CO2 [Moles/Vol] 25 mmol/L Normal 22-30 [facility] Comment on above: Order Comment: Speci men Type: BLOOD SPECIMENOrdering Facility: [facility] Address: [address] [place] [address] Performed By: #### 2 4323-8 ####[facility] LABORATORYCLIA [id number] [address] Creatinine [Mass/Vol] 0.81 mg/dL Normal 0.58-0.96 [facility] Comment on above: Order Comment: Speci men Type: BLOOD SPECIMENOrdering Facility: [facility] Address: [address] [place] [address] Performed By: #### 2 4323-8 ####VET[facility] LABORATORYCLIA [id number] [address] Creatinine and Glomerular filtration rate.predicted panel (S/P/Bld) 92 mL/min/1.73m??? Normal >=60 [facility] Comment on above: Order Comment: Speci men Type: BLOOD SPECIMENOrdering Facility: [facility] Address: [address] [place] [address] Result Comment: Sandie mated Glomerular Filtration Rate [...] Performed By: #### 2 4323-8 ####[facility] LABORATORYCLIA [id number] [place] [id number] [place] Glucose [Mass/Vol] 104 mg/dL High 74-99 [facility] Comment on above: Order Comment: David men Type: BLOOD SPECIMENOrdering Facility: [facility] Address: [address] [place] [address] Result Comment: The [place] Diabetes Association (ADA) provides guidance for cutoff [...] Standards of Medical Care in Diabetes 2016, [place] [employer]. Diabetes Care. 2016.39(Suppl 1). Performed By: #### 2 4323-8 ####[facility] LABORATORYCLIA [id number] [place] [address] [place] Potassium [Moles/Vol] 4.1 mmol/L Normal 3.7-5.1 [facility] Comment on above: Order Comment: David horton Type: BLOOD SPECIMENOrdering Facility: [facility] Address: [address] [place] [address] Performed By: #### 2 4323-8 ####[facility] LABORATORYCLIA [id number] [place] [id number] [place] Protein [Mass/Vol] 6.3 g/dL Normal 6.3-8.0 [facility] Comment on above: Order Comment: David men Type: BLOOD SPECIMENOrdering Facility: [facility] Address: [address] [place] [address] Performed By: #### 2 4323-8 ####[facility] LABORATORYCLIA [id number] [place] [address] [place] Sodium [Moles/Vol] 139 mmol/L Normal 136-144 [facility] Comment on above: Order Comment: Speci men Type: BLOOD SPECIMENOrdering Facility: [facility] Address: [address] [place] [id number] Performed By: #### 2 4323-8 ####[facility] LABORATORYCLIA [id number] [address] Urea nitrogen [Mass/Vol] 7 mg/dL Normal 7-21 [facility] Comment on above: Order Comment: Speci sol Type: BLOOD SPECIMENOrdering Facility: [facility] Address: [address] [place], [place] [address] Performed By: #### 2 4323-8 ####[facility] LABORATORYCLIA [id number] [address] OF [place] ANES POSTPROC EVALon 025 ANES POSTPROC EVAL HNO ID: [id number] Author: MARVA DAMON MD Service: Anesthesiology Author Type: Anesthesiologist Type: Anesthesia Postprocedure Evaluation Filed: 07/06/2024 10:50 Note Text: POST ANESTHESIA EVALUATION NOTE : 1980 Procedure Summary Date: 07/06/24 Room / Location: [facility] Anesthesia Start: 934 Anesthesia Stop: 954 Procedure: EGD DIAGNOSTIC Diagnosis: (Abdominal pain) Scheduled Providers: Kaylyn Ellis MD; Eliana Ellis APRN.PEARL DIVER; Marva Damon MD Responsible Provider: Marva Damon MD Anesthesia Type: MAC ASA Status: 3 [...] team. Anesthesia Observations No Documentation SIGNATURE: Marva Damon MD PATIENT NAME: Michelle Mitchell DATE: July 06, 2024 TIME: 10:50 AM CSN: [id number] Normal [facility] ANES PRE-OPon 07-06-2024 ANES PRE-OP HNO ID: [id number] Author: MARVA DAMON MD Service: Anesthesiology Author Type: Anesthesiologist Type: Anesthesia Preprocedure Evaluation Filed: 07/06/2024 09:18 Note Text: ANESTHESIOLOGY DAY OF SURGERY NOTE : 1980 Procedure Information Date/Time: 07/06/24 1000 Scheduled providers: Kaylyn Ellis MD; Eliana Ellis APRN.PEARL DIVER; Marva Damon MD Procedure: EGD DIAGNOSTIC Location: [facility] Estimated body mass index is 22.78 kg/m? as calculated from the following: Height as of this encounter: 162.6 cm (5' 4"). Weight as of this encounter: 60.2 kg [...] and consent discussed: yes. Patient / Responsible Republican agrees to proceed: yes Patient / Surrogate [...] within 48 hours of Surgery/Procedure. SIGNATURE: Marva Damon MD PATIENT NAME: Michelle Mitchell DATE: July 06, 2024 TIME: 9:17 AM CSN: [id number] Normal [facility] CBC W Auto Differential pane l (Bld)on 07-06-2024 Basophils (Bld) [#/Vol] 0.03 10*3/uL Normal <0.11 [facility] Comment on above: Order Comment: David horton Type: BLOOD SPECIMEN Ordering [facility]: [facility] Address: [address] [place] [address] Performed By: #### 5 8410-2 #### [facility] CLIA [id number] [address] [place] [address] [place] Basophils/100 WBC (Bld) 0.3 % Normal [facility] Comment on above: Order Comment: David horton Type: BLOOD SPECIMEN Ordering Facility: [facility] Address: [address] [place] [address] Performed By: #### 5 8410-2 #### [facility] CLIA [id number] [address] [place] [address] [place] Differential cell count method Nom (Bld) Auto Normal [facility] Comment on above: Order Comment: Speci men Type: BLOOD SPECIMEN Ordering Facility: [facility] Address: [address] [place] [address] Performed By: #### 5 8410-2 #### [facility] CLIA [id number] [address] [place] [address] [place] Eosinophils (Bld) [#/Vol] 0.17 10*3/uL Normal <0.46 [facility] Comment on above: Order Comment: Speci men Type: BLOOD SPECIMEN Ordering Facility: [facility] Address: [address] [place] [address] Performed By: #### 5 8410-2 #### [facility] CLIA [id number] [address] Eosinophils/100 WBC (Bld) 1.9 % Normal [facility] Comment on above: Order Comment: Speci men Type: BLOOD SPECIMEN Ordering Facility: [facility] Address: [address] [place] [address] Performed By: #### 5 8410-2 #### [facility] CLIA [id number] [address] [place] Erythrocyte distribution width (RBC) [Ratio] 14.5 % Normal 11.5-15.0 [facility] Comment on above: Order Comment: Speci men Type: BLOOD SPECIMEN Ordering Facility: [facility] Address: [address] [place] [address] Performed By: #### 5 8410-2 #### [facility] CLIA [id number] [address] [place] Hematocrit (Bld) [Volume fraction] 40.4 % Normal 36.0-46.0 [facility] Comment on above: Order Comment: Speci men Type: BLOOD SPECIMEN Ordering Facility: [facility] Address: [address] [place] [address] Performed By: #### 5 8410-2 #### [facility] CLIA [id number] [address] [place] Hemoglobin (Bld) [Mass/Vol] 13.3 g/dL Normal 11.5-15.5 [facility] Comment on above: Order Comment: Speci men Type: BLOOD SPECIMEN Ordering Facility: [facility] Address: [address] [place] [address] Performed By: #### 5 8410-2 #### [facility] CLIA [id number] [address] Immature granulocytes (Bld) [#/Vol] 0.03 10*3/uL Normal <0.10 [facility] Comment on above: Order Comment: Speci men Type: BLOOD SPECIMEN Ordering Facility: [facility] Address: [address] [place] [address] Performed By: #### 5 8410-2 #### [facility] CLIA [id number] [address] Immature granulocytes/100 WBC (Bld) 0.3 % Normal [facility] Comment on above: Order Comment: Speci men Type: BLOOD SPECIMEN Ordering Facility: [facility] Address: [address] [place] [address] Performed By: #### 5 8410-2 #### [facility] CLIA [id number] [address] Lymphocytes (Bld) [#/Vol] 1.51 10*3/uL Normal 1.00-4.00 [facility] Comment on above: Order Comment: Speci men Type: BLOOD SPECIMEN Ordering Facility: [facility] Address: [address] [place] [address] Performed By: #### 5 8410-2 #### [facility] CLIA [id number] [address] Lymphocytes/100 WBC (Bld) 16.6 % Normal [facility] Comment on above: Order Comment: Speci men Type: BLOOD SPECIMEN [facility]ing [facility]: [facility] Address: [address] [place] [address] Performed By: #### 5 8410-2 #### [facility] CLIA [id number] [address] [place] MCH (RBC) [Entitic mass] 32.6 pg Normal 26.0-34.0 [facility] Comment on above: Order Comment: Speci men Type: BLOOD SPECIMEN [facility]ing [facility]: [facility] Address: [address] [place] [address] Performed By: #### 5 8410-2 #### [facility] CLIA [id number] [address] OF [facility] MCHC (RBC) [Mass/Vol] 32.9 g/dL Normal 30.5-36.0 [facility] Comment on above: Order Comment: Speci men Type: BLOOD SPECIMEN Ordering Facility: [facility] Address: [address] [place] [address] Performed By: #### 5 8410-2 #### [facility] CLIA [id number] [address] MCV (RBC) [Entitic vol] 99.0 fL Normal 80.0-100.0 [facility] Comment on above: Order Comment: Speci men Type: BLOOD SPECIMEN Ordering Facility: [facility] Address: [address] [place] [address] Performed By: #### 5 8410-2 #### [facility] CLIA [id number] [address] [place] Monocytes (Bld) [#/Vol] 0.52 10*3/uL Normal <0.87 [facility] Comment on above: Order Comment: Speci men Type: BLOOD SPECIMEN Ordering Facility: [facility] Address: [address] [place] [address] Performed By: #### 5 8410-2 #### [facility] CLIA [id number] [address] Monocytes/100 WBC (Bld) 5.7 % Normal [facility] Comment on above: Order Comment: Speci men Type: BLOOD SPECIMEN Ordering Facility: [facility] Address: [address] [place] [address] Performed By: #### 5 8410-2 #### [facility] CLIA [id number] [address] OF [place] Neutrophils (Bld) [#/Vol] 6.82 10*3/uL Normal 1.45-7.50 [facility] Comment on above: Order Comment: Speci men Type: BLOOD SPECIMEN Ordering Facility: [facility] Address: [address] [place] [address] Performed By: #### 5 8410-2 #### [facility] CLIA [id number] [address] [place] Neutrophils/100 WBC (Bld) 75.2 % Normal [facility] Comment on above: Order Comment: Speci men Type: BLOOD SPECIMEN Ordering Facility: [facility] Address: [address] [place] [address] Performed By: #### 5 8410-2 #### [facility] CLIA [id number] [address] Nucleated RBC (Bld) [#/Vol] 10*3/uL Normal <0.01 [facility] Comment on above: Order Comment: Speci men Type: BLOOD SPECIMEN Ordering Facility: [facility] Address: [address] [place] [address] Performed By: #### 5 8410-2 #### [facility] CLIA [id number] [address] Nucleated RBC/100 WBC (Bld) [Ratio] 0.0 /100 WBC Normal [facility] Comment on above: Order Comment: Speci men Type: BLOOD SPECIMEN Ordering Facility: [facility] Address: [address] [place] [address] Performed By: #### 5 8410-2 #### [facility] CLIA [id number] [address] [place] Platelet mean volume (Bld) [Entitic vol] 10.6 fL Normal 9.0-12.7 [facility] Comment on above: Order Comment: Speci men Type: BLOOD SPECIMEN Ordering Facility: [facility] Address: [address] [place] [address] Performed By: #### 5 8410-2 #### [facility] CLIA [id number] [address] [place] [address] [place] Platelets (Bld) [#/Vol] 239 10*3/uL Normal 150-400 [facility] Comment on above: Order Comment: Speci men Type: BLOOD SPECIMEN Ordering Facility: [facility] Address: [facility] [place] [address] Performed By: #### 5 8410-2 #### [facility] CLIA [id number] [address] [place] [address] [place] RBC (Bld) [#/Vol] 4.08 10*6/uL Normal 3.90-5.20 [facility] Comment on above: Order Comment: Speci men Type: BLOOD SPECIMEN Ordering Facility: [facility] Address: [address] [place] [address] Performed By: #### 5 8410-2 #### [facility] CLIA [id number] [address] STATES OF [facility] WBC (Bld) [#/Vol] 9.08 10*3/uL Normal 3.70-11.00 [facility] Comment on above: Order Comment: Speci men Type: BLOOD SPECIMEN Ordering Facility: [facility] Address: [address] [place] [address] Performed By: #### 5 8410-2 #### [facility] CLIA [id number] [address] OF [facility] Comprehensive metabolic 2000 panelon 07-06-2024 Albumin [Mass/Vol] 4.1 g/dL Normal 3.9-4.9 [facility] Comment on above: Order Comment: Speci men Type: BLOOD SPECIMENOrdering Facility: [facility] Address: [address] [place] [address] Performed By: #### 2 4323-8 ####[facility]ORATORYCLIA [id number] [address] ALP [Catalytic activity/Vol] 134 U/L High 34-123 [facility] Comment on above: Order Comment: Speci men Type: BLOOD SPECIMENOrdering Facility: [facility] Address: [address] [place] [address] Performed By: #### 2 4323-8 ####[facility] LABORATORYCLIA [id number] [place], [place] [address] [place] [address] [place] ALT [Catalytic activity/Vol] 32 U/L Normal 7-38 [facility] Comment on above: Order Comment: Speci men Type: BLOOD SPECIMENOrdering Facility: [facility] Address: [address] [place] [address] Performed By: #### 2 4323-8 ####[facility]ORATORYCLIA [id number] [place] [address] [place] Anion gap [Moles/Vol] 11 mmol/L Normal 8-15 [facility] Comment on above: Order Comment: Speci men Type: BLOOD SPECIMENOrdering Facility: [facility] Address: [address] [place] [address] Performed By: #### 2 4323-8 ####[facility]ORATORYCLIA [id number] [address] [place] AST [Catalytic activity/Vol] 24 U/L Normal 13-35 [facility] Comment on above: Order Comment: Speci men Type: BLOOD SPECIMENOrdering Facility: [facility] Address: [address] [place] [address] Performed By: #### 2 4323-8 ####[facility] LABORATORYCLIA [id number] [place] [address] [place] Bilirubin [Mass/Vol] 1.3 mg/dL Normal 0.2-1.3 [facility] Comment on above: Order Comment: Speci men Type: BLOOD SPECIMENOrdering Facility: [facility] Address: [facility] [place] [address] Performed By: #### 2 4323-8 ####[facility]ORATORYCLIA [id number] [place] [address] [place] Calcium [Mass/Vol] 9.2 mg/dL Normal 8.5-10.2 [facility] Comment on above: Order Comment: Speci men Type: BLOOD SPECIMENOrdering Facility: [facility] Address: [address] [place] [address] Performed By: #### 2 4323-8 ####[facility]ORATORYCLIA [id number] [place] [address] [place] Chloride [Moles/Vol] 102 mmol/L Normal 98-107 [facility] Comment on above: Order Comment: Kianai men Type: BLOOD SPECIMENOrdering Facility: [facility] Address: [address] [place] [address] Performed By: #### 2 4323-8 ####[facility]ORATORYCLIA [id number] [place] [address] [place] CO2 [Moles/Vol] 25 mmol/L Normal 22-30 [facility] Comment on above: Order Comment: Speci men Type: BLOOD SPECIMENOrdering Facility: [facility] Address: [address] [place] [address] Performed By: #### 2 4323-8 ####[facility]ORYCLIA [id number] [address] [place] Creatinine [Mass/Vol] 0.85 mg/dL Normal 0.58-0.96 [facility] Comment on above: Order Comment: Speci men Type: BLOOD SPECIMENOrdering Facility: [facility] Address: [address] [place] [address] Performed By: #### 2 4323-8 ####[facility]ATORYCLIA [id number] [address] Creatinine and Glomerular filtration rate.predicted panel (S/P/Bld) 87 mL/min/1.73m??? Normal >=60 [facility] Comment on above: Order Comment: David sol Type: BLOOD SPECIMENOrdering Facility: [facility] Address: [address] [place] [address] Result Comment: Sandie mated Glomerular Filtration Rate [...] Performed By: #### 2 4323-8 ####[facility]ORYCLIA [id number] [place] [address] [place] Glucose [Mass/Vol] 91 mg/dL Normal 74-99 [facility] Comment on above: Order Comment: David sol Type: BLOOD SPECIMENOrdering Facility: [facility] Address: [address] [place] [id number] Result Comment: The [place] Diabetes Association (ADA) provides guidance for cutoff [...] Standards of Medical Care in Diabetes 2016, [place] [employer]. Diabetes Care. 2016.39(Suppl 1). Performed By: #### 2 4323-8 ####[facility]ATORYCLIA [id number] [place] [address] [place] Potassium [Moles/Vol] 3.9 mmol/L Normal 3.7-5.1 [facility] Comment on above: Order Comment: Dvaid horton Type: BLOOD SPECIMENOrdering Facility: [facility] Address: [address] [place] [address] Performed By: #### 2 4323-8 ####[facility]ORYCLIA [id number] [place] [address] [place] Protein [Mass/Vol] 6.2 g/dL Low 6.3-8.0 [facility] Comment on above: Order Comment: David horton Type: BLOOD SPECIMENOrdering Facility: [facility] Address: [address] [place], [place] [address] Performed By: #### 2 4323-8 ####[facility]ATORYCLIA [id number] [place] [address] [place] Sodium [Moles/Vol] 138 mmol/L Normal 136-144 [facility] Comment on above: Order Comment: David men Type: BLOOD SPECIMENOrdering Facility: [facility] Address: [address] [place], [place] [address] Performed By: #### 2 4323-8 ####[facility]ORYCLIA [id number] [address] Urea nitrogen [Mass/Vol] 9 mg/dL Normal 7- [facility] Comment on above: Order Comment: David horton Type: BLOOD SPECIMENOrdering Facility: [facility] Address: [address] [place] [address] Performed By: #### 2 4323-8 ####[facility]ORATORYCLIA [id number] [address] STATES [facility] Pathology biopsy report David (Tiss)on 07-06-2024 ADDENDUM 1: Normal [facility] Comment on above: Order Comment: David horton Type: BLOOD SPECIMEN [facility]ing [facility]: [facility] Address: [address] [place] [address] Result Comment: B. I mmunohistochemical stain for H. pylori is negative. Addendum electronically signed by Jaleesa Valdivia MD on 07/16/2024 at 1121 EDT Performed By: #### 5 8410-2 #### [facility] CLIA [id number] [address] AP DISCLAIMER [facility] Comment on above: Order Comment: David [facility] Type: BLOOD SPECIMEN Ordering Facility: [facility] Address: [address] [place] [address] Result Comment: Ubaldo tang Developed Test (LDT) Disclaimer: Performance characteristics of immunohistochemical, immunofluorescent, and chromogenic in-situ hybridization tests have been determined by the performing laboratory within [facility]'s [facility] Pathology and Laboratory Medicine Department ([facility], [facility], [facility], [facility], [facility], [facility], or [facility]) in a manner consistent with CLIA requirements. One or more of these tests may not have been cleared or approved by the FDA. [facility] is regulated under CLIA as qualified to perform high-complexity testing. These tests are used for clinical purposes. These should not be regarded as investigational or for research. Positive and negative controls stain appropriately. Performed By: #### 5 8410-2 #### [facility] CLIA [id number] [address] CASE REPORT [facility] Comment on above: Order Comment: Speci men Type: BLOOD SPECIMEN [facility]ing Facility: [facility] Address: [address] [place] [address] Result Comment: Surg ica Pathology Report Case: [id number] Authorizing Provider: Kaylyn Ellis MD Collected: 07/06/2024 09:43 AM Ordering Location: [facility] Received: 07/06/2024 11:27 AM Pathologist: Jaleesa Valdivia MD Specimens: A) - Small Bowel, Duodenum, Biopsy, R/O Sprue and Giardia B) - Stomach, Biopsy, R/O H Pylori C) - Esophagogastric Junction, Biopsy, R/O Barretts Performed By: #### 5 8410-2 #### [facility] CLIA [id number] [address] DIAGNOSIS COMMENT Part C was reviewed with Dr. Nunn, who concurs. [facility] Comment on above: Order Comment: Speci men Type: BLOOD SPECIMEN Ordering Facility: [facility] Address: [address] [place] [address] Performed By: #### 5 8410-2 #### [facility] CLIA [id number] [address] FINAL DIAGNOSIS [facility] Comment on above: Order Comment: David horton Type: BLOOD SPECIMEN Ordering Facility: [facility] Address: [address] [place] [address] Result Comment: A. D uodenum, biopsy: - [...] EDT Performed By: #### 5 8410-2 #### [facility] CLIA [id number] [address] OF [place] FINAL PERFORMING LAB Normal [facility] Comment on above: Order Comment: Speci men Type: BLOOD SPECIMEN Ordering Facility: [facility] Address: [address] [place] [address] Result Comment: Diag nostic interpretation performed at: [facility], [address] [place] [address], [facility] [place] [address] CLIA# [id number] Pack Worker Supervisor: Logan Villanueva MD Performed By: #### 5 8410-2 #### [facility] CLIA [id number] [address] GROSS DESCRIPTION Normal [facility] Comment on above: Order Comment: Speci men Type: BLOOD SPECIMEN Ordering Facility: [facility] Address: [address] [place] [address] Result Comment: A. S mall Bowel, Duodenum, [...] in one cassette. Gross examination performed at [facility], [address] [place] [address] July 06, 2024 4:20 PM Performed By: #### 5 8410-2 #### [facility] CLIA [id number] [address] OF [place] Upper GI endoscopyon 025 Upper GI endoscopy [facility] Gastrointestinal Endoscopy Patient Name: Michelle Mitchell Procedure Date: 07/06/2024 9:28 AM Date of : 1980 Admit Type: Inpatient Age: 43 Room: [facility] Gender: Female Note Status: Finalized Attending MD: Kaylyn Ellis MD, [id number] Procedure: Upper GI endoscopy Indications: Abdominal pain, Heartburn, Nausea Providers: Kaylyn Ellis MD Patient Profile: Refer to note in patient chart for documentation of history and physical. Referring Physician: Deepika Joy (Referring ) Medicines: Monitored Anesthesia Care Complications: No immediate complications. Requesting Provider: Procedure: Pre-Anesthesia Assessment: - The risks and benefits of the procedure and the sedation options and risks were discussed with the patient. All questions were answered and informed consent was obtained. - Monitored anesthesia care under the supervision of a PEARL DIVER was determined to be medically necessary for [...] clinical course. Procedure Code(s): --- Professional --- 13035, Esophagogastroduodenosco py, flexible, transoral; with biopsy, single or multiple CPT copyright 2020 [employer]. All rights reserved. The codes documented in this report are preliminary and upon neuro urologist review may be revised to meet current compliance requirements. Attending Participation: I personally performed the entire procedure. Scope In: 9:42:49 AM Scope Out: 9:49:13 AM MD Kaylyn George MD 07/06/2024 9:59:31 AM This report has been signed electronically by Kaylyn Ellis MD Number of Addenda: 0 Note Initiated On: 07/06/2024 9:28 AM Estimated Blood Loss: Estimated blood loss: none. Normal [facility] A1AT [facility] 07-05-2024 Alpha 1 antitrypsin [Mass/Vol] 106 mg/dL Normal 90-200 [facility] Comment on above: Order Comment: David horton Type: BLOOD SPECIMEN Ordering Facility: [facility] Address: [address] [place] [address] Performed By: #### 5 8410-2 #### [facility] CLIA [id number] [address] AFP [facility] 07-05-2024 AFP [Mass/Vol] 5.23 ng/mL Normal <9.00 [facility] Comment on above: Order Comment: David horton Type: BLOOD SPECIMEN Ordering Facility: [facility] Address: [address] [place] [address] Result Comment: The Alpha-Fetoprotein test was performed using the Bio[employer] DxI immunoenzymatic assay. Results obtained with different assay methods or kits cannot be used interchangeably. Performed By: #### 5 8410-2 #### [facility] CLIA [id number] [address] [place]DR[place] BY IFA SCREENon 07-06-19 Nuclear Ab Ql (S) Negative Normal Negative [facility] Comment on above: Order Comment: David horton Type: BLOOD SPECIMEN Ordering Facility: [facility] Address: [address] [place] [address] Result Comment: Anti -nuclear antibody test is used as an aid in diagnosis of systemic autoimmune diseases. Where positive and clinically warranted, follow-up using disease-specific testing is recommended. Low positive titers are not uncommon with advanced age, certain chronic infections, and malignancies among others. Test methodology: Indirect fluorescence immunoassay (IFA) using HEp-2 cells. Performed By: #### 5 8410-2 #### [facility] CLIA [id number] [address] STATES OF [facility] CBC W Auto Differential pane l (Bld)on 07-05-2024 Basophils (Bld) [#/Vol] 0.08 10*3/uL Normal <0.11 [facility] Comment on above: Order Comment: Speci men Type: BLOOD SPECIMEN Ordering Facility: [facility] Address: [address] [place] [address] Performed By: #### 5 8410-2 #### [facility] CLIA [id number] [address] STATES OF [facility] Basophils/100 WBC (Bld) 0.7 % Normal [facility] Comment on above: Order Comment: Speci men Type: BLOOD SPECIMEN Ordering Facility: [facility] Address: [address] [place] [address] Performed By: #### 5 8410-2 #### [facility] CLIA [id number] [address] Differential cell count method Nom (Bld) Auto Normal [facility] Comment on above: Order Comment: Kianai men Type: BLOOD SPECIMEN Ordering Facility: [facility] Address: [address] [place] [address] Performed By: #### 5 8410-2 #### [facility] CLIA [id number] [address] [place] Eosinophils (Bld) [#/Vol] 0.12 10*3/uL Normal <0.46 [facility] Comment on above: Order Comment: Speci men Type: BLOOD SPECIMEN Ordering Facility: [facility] Address: [address] [place] [address] Performed By: #### 5 8410-2 #### [facility] CLIA [id number] [address] OF [place] Eosinophils/100 WBC (Bld) 1.0 % Normal [facility] Comment on above: Order Comment: Speci men Type: BLOOD SPECIMEN Ordering Facility: [facility] Address: [address] [place] [address] Performed By: #### 5 8410-2 #### [facility] CLIA [id number] [address] [place] Erythrocyte distribution width (RBC) [Ratio] 15.0 % Normal 11.5-15.0 [facility] Comment on above: Order Comment: Speci men Type: BLOOD SPECIMEN Ordering Facility: [facility] Address: [address] [place] [address] Performed By: #### 5 8410-2 #### [facility] CLIA [id number] [address] [place] Hematocrit (Bld) [Volume fraction] 45.4 % Normal 36.0-46.0 [facility] Comment on above: Order Comment: Speci men Type: BLOOD SPECIMEN Ordering Facility: [facility] Address: [address] [place] [address] Performed By: #### 5 8410-2 #### [facility] CLIA [id number] [address] [place] [address] [place] Hemoglobin (Bld) [Mass/Vol] 14.2 g/dL Normal 11.5-15.5 [facility] Comment on above: Order Comment: Speci men Type: BLOOD SPECIMEN Ordering Facility: [facility] Address: [address] [place] [address] Performed By: #### 5 8410-2 #### [facility] CLIA [id number] [address] [place] Immature granulocytes (Bld) [#/Vol] 0.04 10*3/uL Normal <0.10 [facility] Comment on above: Order Comment: Speci men Type: BLOOD SPECIMEN Ordering Facility: [facility] Address: [address] [place] [address] Performed By: #### 5 8410-2 #### [facility] CLIA [id number] [address] Immature granulocytes/100 WBC (Bld) 0.3 % Normal [facility] Comment on above: Order Comment: Speci men Type: BLOOD SPECIMEN Ordering Facility: [facility] Address: [address] [place] [address] Performed By: #### 5 8410-2 #### [facility] CLIA [id number] [address] [place] Lymphocytes (Bld) [#/Vol] 1.79 10*3/uL Normal 1.00-4.00 [facility] Comment on above: Order Comment: Speci men Type: BLOOD SPECIMEN Ordering Facility: [facility] Address: [address] [place] [address] Performed By: #### 5 8410-2 #### [facility] CLIA [id number] [address] Lymphocytes/100 WBC (Bld) 14.7 % Normal [facility] Comment on above: Order Comment: Speci men Type: BLOOD SPECIMEN Ordering Facility: [facility] Address: [address] [place] [address] Performed By: #### 5 8410-2 #### [facility] CLIA [id number] [address] MCH (RBC) [Entitic mass] 31.7 pg Normal 26.0-34.0 [facility] Comment on above: Order Comment: Speci men Type: BLOOD SPECIMEN Ordering Facility: [facility] Address: [address] [place] [address] Performed By: #### 5 8410-2 #### [facility] CLIA [id number] [address] [place] MCHC (RBC) [Mass/Vol] 31.3 g/dL Normal 30.5-36.0 [facility] Comment on above: Order Comment: Speci men Type: BLOOD SPECIMEN Ordering Facility: [facility] Address: [address] [place] [address] Performed By: #### 5 8410-2 #### [facility] CLIA [id number] [address] [place] MCV (RBC) [Entitic vol] 101.3 fL High 80.0-100.0 [facility] Comment on above: Order Comment: Speci men Type: BLOOD SPECIMEN Ordering Facility: [facility] Address: [address] [place] [address] Performed By: #### 5 8410-2 #### [facility] CLIA [id number] [address] [place] [address] [place] Monocytes (Bld) [#/Vol] 0.57 10*3/uL Normal <0.87 [facility] Comment on above: Order Comment: Speci men Type: BLOOD SPECIMEN Ordering Facility: [facility] Address: [address] [place] [address] Performed By: #### 5 8410-2 #### [facility] CLIA [id number] [address] Monocytes/100 WBC (Bld) 4.7 % Normal [facility] Comment on above: Order Comment: Speci men Type: BLOOD SPECIMEN Ordering Facility: [facility] Address: [address] [place] [address] Performed By: #### 5 8410-2 #### [facility] CLIA [id number] [address] [place] Neutrophils (Bld) [#/Vol] 9.58 10*3/uL High 1.45-7.50 [facility] Comment on above: Order Comment: Speci men Type: BLOOD SPECIMEN Ordering Facility: [facility] Address: [address] [place] [address] Performed By: #### 5 8410-2 #### [facility] CLIA [id number] [address] [place] Neutrophils/100 WBC (Bld) 78.6 % Normal [facility] Comment on above: Order Comment: Speci men Type: BLOOD SPECIMEN Ordering Facility: [facility] Address: [address] [place] [address] Performed By: #### 5 8410-2 #### [facility] CLIA [id number] [address] [place] Nucleated RBC (Bld) [#/Vol] 10*3/uL Normal <0.01 [facility] Comment on above: Order Comment: Speci men Type: BLOOD SPECIMEN Ordering Facility: [facility] Address: [address] [place] [address] Performed By: #### 5 8410-2 #### [facility] CLIA [id number] [address] [place] Nucleated RBC/100 WBC (Bld) [Ratio] 0.0 /100 WBC Normal [facility] Comment on above: Order Comment: Speci men Type: BLOOD SPECIMEN Ordering Facility: [facility] Address: [address] [place] [address] Performed By: #### 5 8410-2 #### [facility] CLIA [id number] [address] OF [facility] Platelet mean volume (Bld) [Entitic vol] 10.5 fL Normal 9.0-12.7 [facility] Comment on above: Order Comment: Speci men Type: BLOOD SPECIMEN Ordering Facility: [facility] Address: [address] [place] [address] Performed By: #### 5 8410-2 #### [facility] CLIA [id number] [address] [place] Platelets (Bld) [#/Vol] 278 10*3/uL Normal 150-400 [facility] Comment on above: Order Comment: Speci men Type: BLOOD SPECIMEN Ordering Facility: [facility] Address: [address] [place] [address] Performed By: #### 5 8410-2 #### [facility] CLIA [id number] [address] [place] RBC (Bld) [#/Vol] 4.48 10*6/uL Normal 3.90-5.20 [facility] Comment on above: Order Comment: Speci men Type: BLOOD SPECIMEN Ordering Facility: [facility] Address: [address] [place] [address] Performed By: #### 5 8410-2 #### [facility] CLIA [id number] [address] [place] [address] [place] WBC (Bld) [#/Vol] 12.18 10*3/uL High 3.70-11.00 [facility] Comment on above: Order Comment: David horton Type: BLOOD SPECIMEN Ordering Facility: [facility] Address: [address] [place] [address] Performed By: #### 5 8410-2 #### [facility] CLIA [id number] [address] [place] CELIAC SCREENon 07-05-2024 GLIAD DEAMIDATED IGA QUAL Negative Normal Negative, Test not Indicated [facility] Comment on above: Order Comment: David horton Type: BLOOD SPECIMENOrdering Facility: [facility] Address: [address] [place] [address] Result Comment: This is used as an aid in diagnosis of celiac disease. Clinical correlation is required. The following results were obtained with an [employer] Gliadin IgA ION Gliadin. Gliadin IgA values obtained with different manufacturers' assay methods may not be used interchangeably. The magnitude of the reported IgA levels cannot be correlated to an endpoint titer. Performed By: #### L [id number] ####[facility] [id number] [place] [address] [place] Gliadin peptide IgA Qn (S) 1 Units Normal <20 [facility] Comment on above: Order Comment: David horton Type: BLOOD SPECIMENOrdering Facility: [facility] Address: [address] [place] [address] Performed By: #### L [id number] ####[facility] [id number] [place] [address] [place] INTERPRETATION No serological evide nce of celiac disease, however, if celiac disease is clinically suspected and patient is not on gluten-free diet, histological diagnosis may be considered. HLA testing may help with risk assessment. Normal [facility] Comment on above: Order Comment: David [facility] Type: BLOOD SPECIMENOrdering Facility: [facility] Address: [address] [place] [address] Performed By: #### L [id number] ####[facility] [id number] [address] STATES [facility] TRANSGLUTAMINASE IGA ABS INTERPRETATION Negative Normal Negative [facility] Comment on above: Order Comment: Spectian men Type: BLOOD SPECIMENOrdering Facility: [facility] Address: [address] [place] [address] Result Comment: The following results were obtained with [employer] R h-tTG IgA ION.???R h-tTG IgA values obtained with different manufacturers' assay methods may not be used interchangeably. The magnitude of the reported IgA levels cannot be corelated to an endpoint???concentration. This is used as an aid in diagnosis of celiac disease. Clinical correlation is required. Performed By: #### L [id number] ####[facility] [id number] [address] STATES [facility] tTG IgA Qn (S) <2 Normal <4 [facility] Comment on above: Order Comment: Speci men Type: BLOOD SPECIMENOrdering Facility: [facility] Address: [address] [place] [address] Performed By: #### L [id number] ####[facility]IA [id number] [address] [place] CMV IgM Qnon 07-05-2024 CMV IGM, QUAL Negative Normal Negative [facility] Comment on above: Order Comment: David horton Type: BLOOD SPECIMENOrdering Facility: [facility] Address: [address] [place] [address] Result Comment: No s erological evidence of recent exposure to Cytomegalovirus. Performed By: #### 7 853-5, 7886-5 ####[facility] [id number] [address] STATES [place] CONSULTon 07-05-2024 CONSULT HNO ID: [id number] Author: SERGIO WHITE MD Service: Gastroenterology Author Type: Physician Type: Consults Filed: 07/05/2024 17:29 Note Text: GASTROENTEROLOGY CONSULT NOTE PATIENT NAME: Michelle Mitchell SERVICE DATE: July 05, 2024 SERVICE TIME: 8:39 AM PRIMARY CARE PHYSICIAN: Dex Wilkinson MD ATTENDING PHYSICIAN: Dex Wilkinson MD REASON FOR ADMISSION: Abdominal pain REASON [...] and facial swelling. She was evaluated in [place] [facility] twice and discharged to home. She was advised to present to [place] [facility] by Dr. Wilkinson for admission. Her pain started on 06/28/2024 [...] suicidal ideations Ativan [Lorazepam] Vomiting Azithromycin Intolerance [place] Anaphylaxis [place] Anaphylaxis pickles Fish Anaphylaxis Levofloxacin In D5w [...] TRANSVENOUS PACEMAKER INSERTION Apr. 2006 ICD implant, [facility] ANESTHESIA TUBAL LIGATION/TRANSECTION APPENDECTOMY 05/05/2014 , lap BREAST LUMPECTOMY HX Left 1998 with radiation CHOLECYSTECTOMY HX 08/2010 lap COLONOSCOPY [...] bedtime., D (more content not included)... Normal [facility] Ceruloplasmin SerPl-mCncon 0 07-05-2024 Ceruloplasmin [Mass/Vol] 31 mg/dL Normal 16-45 [facility] Comment on above: Order Comment: Speci men Type: BLOOD SPECIMEN Ordering Facility: [facility] Address: [address] [place] [address] Performed By: #### 5 8410-2 #### [facility] CLIA [id number] [address] OF [facility] Comprehensive metabolic 2000 panelon 07-05-2024 Albumin [Mass/Vol] 4.0 g/dL Normal 3.9-4.9 [facility] Comment on above: Order Comment: Speci men Type: BLOOD SPECIMENOrdering Facility: [facility] Address: [address] [place] [address] Performed By: #### 2 4323-8, 24148-1, 49647-2 ####[facility] [id number] [address] STATES OF [facility] ALP [Catalytic activity/Vol] 132 U/L High 34-123 [facility] Comment on above: Order Comment: Speci men Type: BLOOD SPECIMENOrdering Facility: [facility] Address: [address] [place] [address] Performed By: #### 2 4323-8, 40484-9, 11499-1 ####[facility] [id number] [address] [place] ALT [Catalytic activity/Vol] 39 U/L High 7-38 [facility] Comment on above: Order Comment: Speci men Type: BLOOD SPECIMENOrdering Facility: [facility] Address: [address] [place] [address] Performed By: #### 2 4323-8, 09395-1, 65262-6 ####[facility] [id number] [place] [address] [place] Anion gap [Moles/Vol] 10 mmol/L Normal 8-15 [facility] Comment on above: Order Comment: Speci men Type: BLOOD SPECIMENOrdering Facility: [facility] Address: [address] [place] [address] Performed By: #### 2 4323-8, 54223-9, 53075-0 ####[facility] [id number] [place] [address] [place] AST [Catalytic activity/Vol] 30 U/L Normal 13-35 [facility] Comment on above: Order Comment: Speci men Type: BLOOD SPECIMENOrdering Facility: [facility] Address: [address] [place] [address] Performed By: #### 2 4323-8, 54997-3, 90093-2 ####[facility] [id number] [place] [address] [place] Bilirubin [Mass/Vol] 1.0 mg/dL Normal 0.2-1.3 [facility] Comment on above: Order Comment: Speci men Type: BLOOD SPECIMENOrdering Facility: [facility] Address: [address] [place] [address] Performed By: #### 2 4323-8, 23719-6, 93939-1 ####[facility] [id number] [place] [id number] [place] Calcium [Mass/Vol] 9.1 mg/dL Normal 8.5-10.2 [facility] Comment on above: Order Comment: Speci men Type: BLOOD SPECIMENOrdering Facility: [facility] Address: [address] [place] [address] Performed By: #### 2 4323-8, 89535-4, 94119-8 ####[facility] [id number] [place] [address] [place] Chloride [Moles/Vol] 104 mmol/L Normal 98-107 [facility] Comment on above: Order Comment: Speci men Type: BLOOD SPECIMENOrdering Facility: [facility] Address: [address] [place] [address] Performed By: #### 2 4323-8, 18734-1, 49916-7 ####[facility] [id number] [address] CO2 [Moles/Vol] 27 mmol/L Normal 22-30 [facility] Comment on above: Order Comment: Speci men Type: BLOOD SPECIMENOrdering Facility: [facility] Address: [address] [place] [address] Performed By: #### 2 4323-8, 22756-3, 67140-1 ####[facility] [id number] [address] Creatinine [Mass/Vol] 0.96 mg/dL Normal 0.58-0.96 [facility] Comment on above: Order Comment: Speci men Type: BLOOD SPECIMENOrdering Facility: [facility] Address: [address] [place] [address] Performed By: #### 2 4323-8, 13858-4, 85450-7 ####[facility] [id number] [address] Creatinine and Glomerular filtration rate.predicted panel (S/P/Bld) 75 mL/min/1.73m??? Normal >=60 [facility] Comment on above: Order Comment: Speci men Type: BLOOD SPECIMENOrdering Facility: [facility] Address: [address] [place] [address] Result Comment: Sandie mated Glomerular Filtration Rate [...] actual GFR. Performed By: #### 2 4323-8, 12272-4, 81974-7 ####[facility] [id number] [place] [id number] [place] Glucose [Mass/Vol] 89 mg/dL Normal 74-99 [facility] Comment on above: Order Comment: Kianai men Type: BLOOD SPECIMENOrdering Facility: [facility] Address: [address] [place], [place] [address] Result Comment: The [place] [employer] (ADA) provides guidance for cutoff [...] Standards of Medical Care in Diabetes 2016, [place] [employer]. Diabetes Care. 2016.39(Suppl 1). Performed By: #### 2 4323-8, 05032-2, 32225-0 ####[facility] [id number] [place] [id number] [place] Potassium [Moles/Vol] 4.1 mmol/L Normal 3.7-5.1 [facility] Comment on above: Order Comment: David horton Type: BLOOD SPECIMENOrdering Facility: [facility] Address: [address] [place], [place] [address] Performed By: #### 2 4323-8, 52640-8, 95412-8 ####[facility] [id number] [place] [address] [place] Protein [Mass/Vol] 6.9 g/dL Normal 6.3-8.0 [facility] Comment on above: Order Comment: David men Type: BLOOD SPECIMENOrdering Facility: [facility] Address: [address] [place], [place] [address] Performed By: #### 2 4323-8, 80313-5, 17590-2 ####[facility] [id number] [place] [address] [place] Sodium [Moles/Vol] 141 mmol/L Normal 136-144 [facility] Comment on above: Order Comment: Speci men Type: BLOOD SPECIMENOrdering Facility: [facility] Address: [address] [place] [address] Performed By: #### 2 4323-8, 42969-7, 12836-8 ####[facility] [id number] [address] [place] Urea nitrogen [Mass/Vol] 12 mg/dL Normal 7-21 [facility] Comment on above: Order Comment: Speci men Type: BLOOD SPECIMENOrdering Facility: [facility] Address: [address] [place] [address] Performed By: #### 2 4323-8, 75739-6, 13537-3 ####[facility] [id number] [address] [place] EBV capsid IgM Qn (S)on 06-13 EBV VCA IGM, QUAL Negative Normal Negative [facility] Comment on above: Order Comment: Speci men Type: BLOOD SPECIMENOrdering Facility: [facility] Address: [address] [place] [address] Result Comment: No s erological evidence of recent EBV infection. Performed By: #### 7 853-5, 7886-5 ####[facility] LABCLIA [id number] [address] [place] HISTORY PHYSICALon HISTORY PHYSICAL HNO ID: [id number] Author: DEX WILKINSON MD Service: Family Practice Author Type: Physician Type: H&P Filed: 07/05/2024 08:19 Note Text: HISTORY AND PHYSICAL EXAMINATION - INTERNAL MEDICINE PATIENT NAME: Michelle Mitchell SERVICE DATE: 07/05/2024 SERVICE TIME: 8:11 AM PRIMARY CARE PHYSICIAN: Dex Wilkinson MD ASSESSMENT AND PLAN Principal Problem: Abdominal [...] couple weeks, she has been seen at [facility] twice over the last few days [...] TRANSVENOUS PACEMAKER INSERTION Apr. 2006 ICD implant, [facility] ANESTHESIA TUBAL LIGATION/TRANSECTION APPENDECTOMY 05/05/2014 , [...] suicidal ideations Ativan [Lorazepam] Vomiting Azithromycin Intolerance [place] Anaphylaxis [place] Anaphylaxis pickles Fish Anaphylaxis Levofloxacin In D5w Swelling, Itching IV si (more content not included)... Normal [facility] HSV PCR, MISCELLANEOUS SPECI MEN TYPESon 07-05-2024 HERPES SIMPLEX VIRUS SOURCE Plasma Normal [facility] Comment on above: Order Comment: Speci men Type: BLOOD SPECIMEN Ordering Facility: [facility] Address: [address] [place] [address] Performed By: #### 5 8410-2 #### [facility] CLIA [id number] [address] HSV 1 SUBTYPE BY PCR Not detected Normal [facility] Comment on above: Order Comment: [facility] Type: BLOOD SPECIMEN Ordering Facility: [facility] Address: [address] [place] [address] Performed By: #### 5 8410-2 #### [facility] CLIA [id number] [address] HSV 2 SUBTYPE BY PCR Not detected Normal [facility] Comment on above: Order Comment: Spectian horton Type: BLOOD SPECIMEN Ordering Facility: [facility] Address: [address] [place] [address] Result Comment: INTE RPRETIVE INFORMATION: HSV-1 and HSV-2 Subtype by PCR A negative result does not rule out the presence of PCR inhibitors in the patient specimen or test-specific nucleic acid in concentrations below the level of detection by this test. This test was developed and its performance characteristics determined by [facility]. It has not been cleared or approved by the [place] Food and Drug Administration. This test was performed in a CLIA certified laboratory and is intended for clinical purposes. Performed By: [facility] [address] [place] [address] Pack Worker Supervisor: José Burns MD, PhD [place] Number: [id number] Performed By: #### 5 8410-2 #### [facility] CLIA [id number] [address] [place] IgA SerPl-mCncon 07-05-2024 IgA [Mass/Vol] 97 mg/dL Normal 70-400 [facility] Comment on above: Order Comment: [facility] Type: BLOOD SPECIMEN Ordering Facility: [facility] Address: [address] [place] [address] Performed By: #### 5 8410-2 #### [facility] CLIA [id number] [address] [place] Iron and Iron binding capaci ty panelon 07-05-2024 Iron [Mass/Vol] 77 ug/dL Normal 41-186 [facility] Comment on above: Order Comment: Speci men Type: BLOOD SPECIMENOrdering Facility: [facility] Address: [address] [place] [address] Performed By: #### 2 4323-8, 46091-7, 61081-0 ####[facility] [id number] [place] [address] [place] Iron binding capacity [Mass/Vol] 411 ug/dL High 232-386 [facility] Comment on above: Order Comment: Speci men Type: BLOOD SPECIMENOrdering Facility: [facility] Address: [address] [place] [address] Performed By: #### 2 4323-8, 56060-2, 51128-0 ####[facility] [id number] [place] [address] [place] Iron/TIBC [Molar ratio] 18.7 % Normal 15.0-57.0 [facility] Comment on above: Order Comment: Speci men Type: BLOOD SPECIMENOrdering Facility: [facility] Address: [address] [place] [address] Performed By: #### 2 4323-8, 00075-5, 55547-6 ####[facility]IA [id number] [place] [address] [place] Lipid 1996 panelon Cholesterol [Mass/Vol] 172 mg/dL Normal <200 [facility] Comment on above: Order Comment: Speci men Type: BLOOD SPECIMENOrdering Facility: [facility] Address: [address] [place] [address] Result Comment: <200 mg/dL, Desirable 200-239 mg/dL, Borderline high >239 mg/dL, High Performed By: #### 2 4323-8, 20272-4, 75542-5 ####[facility] [id number] [place] [address] [place] Cholesterol in HDL [Mass/Vol] 36 mg/dL Low >39 [facility] Comment on above: Order Comment: Speci men Type: BLOOD SPECIMENOrdering Facility: [facility] Address: [address] [place] [address] Result Comment: 40-5 9 mg/dL, Acceptable >59 mg/dL, High: Negative risk factor for coronary heart disease <40 mg/dL, Low: Positive risk factor for coronary heart disease Performed By: #### 2 4323-8, 61944-5, 55014-2 ####[facility]IA [id number] [place] [id number] [facility] [place] Cholesterol in LDL [Mass/Vol] 108 mg/dL High <100 [facility] Comment on above: Order Comment: David horton Type: BLOOD SPECIMENOrdering Facility: [facility] Address: [address] [place] [address] Result Comment: <100 mg/dL, Optimal 100-129 mg/dL, Near optimal/above optimal 130-159 mg/dL, Borderline high 160-189 mg/dL, High >189 mg/dL, Very high Secondary prevention optimal LDL Cholesterol levels are recommended to be <70 mg/dL LDL cholesterol is calculated using the Stoddard-NIH equation. Performed By: #### 2 4323-8, 81930-8, 98301-4 ####[facility] [id number] [place] [id number] [place] Cholesterol in LDL/Cholesterol in HDL [Mass ratio] 3.00 {ratio} High <2.54 [facility] Comment on above: Order Comment: David horton Type: BLOOD SPECIMENOrdering Facility: [facility] Address: [address] [place] [address] Result Comment: Mary leo: 1. National Cholesterol Education Program ATP III Guideline At-A-Glance Quick Desk Reference: National Heart, Lung, and Blood Davis. National Institutes of Health. 2001: NIH Publication No. 01-3305. 2. An International Atherosclerosis Society position paper: global recommendations for the management of dyslipidemia: executive summary, Atherosclerosis. 2014: 232(2):410-413. Performed By: #### 2 4323-8, 07800-0, 25700-0 ####[facility] [id number] [place] [id number] [place] Cholesterol in VLDL [Mass/Vol] 26 mg/dL Normal <30 [facility] Comment on above: Order Comment: Speci men Type: BLOOD SPECIMENOrdering Facility: [facility] Address: [address] [place] [address] Performed By: #### 2 4323-8, 24973-7, 72622-7 ####[facility] [id number] [place] [address] [facility] [place] Cholesterol non HDL [Mass/Vol] 136 mg/dL High <130 [facility] Comment on above: Order Comment: Speci men Type: BLOOD SPECIMENOrdering Facility: [facility] Address: [address] [place] [address] Result Comment: <130 mg/dL, Optimal 130-159 mg/dL, Near optimal/above optimal 160-189 mg/dL, Borderline high 190-219 mg/dL, High >219 mg/dL, Very high Secondary prevention optimal non HDL Cholesterol levels are recommended to be <100 mg/dL Performed By: #### 2 4323-8, 12853-5, 16847-5 ####[facility] [id number] [address] Cholesterol.total/Choles terol in HDL [Mass ratio] 4.78 {ratio} Normal <5.10 [facility] Comment on above: Order Comment: Speci men Type: BLOOD SPECIMENOrdering Facility: [facility] Address: [address] [place] [address] Performed By: #### 2 4323-8, 57305-8, 53253-9 ####[facility] [id number] [place] [id number] [facility] [place] FASTING TIME Normal [facility] Comment on above: Order Comment: Speci men Type: BLOOD SPECIMENOrdering Facility: [facility] Address: [address] [place] [address] Result Comment: Unkn own Performed By: #### 2 4323-8, 53621-3, 59366-5 ####[facility]ORYCLIA [id number] [place] [id number] [facility] [place] Triglyceride [Mass/Vol] 157 mg/dL High <150 M [facility] Comment on above: Order Comment: Speci men Type: BLOOD SPECIMENOrdering Facility: [facility] Address: [address] [place] [address] Result Comment: <150 mg/dL, Normal 150-199 mg/dL, Borderline high 200-499 mg/dL, High >499 mg/dL, Very high Performed By: #### 2 4323-8, 50371-0, 71335-3 ####[facility] [id number] [address] [place] Mitochondria Ab IF Ql (S)on 07-05-2024 Mitochondria M2 Ab IA Qn (S) 4.4 Units Normal <=20.0 [facility] Comment on above: Order Comment: David horton Type: BLOOD SPECIMENOrdering Facility: [facility] Address: [address] [place] [address] Performed By: #### 1 4252-1, 22708-1 ####[facility] LABIA [id number] [address] STATES OF [facility] Mitochondria M2 Ab Ql (S) Negative Normal Negative [facility] Comment on above: Order Comment: David horton Type: BLOOD SPECIMENOrdering Facility: [facility] Address: [address] [place] [address] Result Comment: Anti -mitochondrial antibody test is used as an aid in diagnosis of primary biliary cholangitis. Clinical correlation is required. Performed By: #### 1 4252-1, 00844-8 ####[facility] LABCLIA [id number] [address] [place] Smooth muscle Ab Ql (S)on ACTIN SMOOTH MUSCLE IGG QUALITATIVE Negative Normal Negative [facility] Comment on above: Order Comment: David horton Type: BLOOD SPECIMENOrdering Facility: [facility] Address: [address] [place] [address] Performed By: #### 1 4252-1, 53522-7 ####[facility] LABCLIA [id number] [place] [address] [place] ACTIN SMOOTH MUSCLE IGG QUANTITATIVE 11 Units Normal <20 [facility] Comment on above: Order Comment: Speci men Type: BLOOD SPECIMENOrdering Facility: [facility] Address: [address] [place], [place] [address] [address] Performed By: #### 1 4252-1, 40755-6 ####[facility] LABCLIA [id number] [place] [address] [place] ALLIED HEALTHon 07-04-2024 ALLIED HEALTH HNO ID: [id number] Author: SAMSON CRUM CT Service: Radiology Author [...] PATIENT PRESENTS WITH AN IMPLANTABLE OR ATTACHED QUALITY CONTROL ANALYST: N/A RADIOLOGY DEPARTMENT: Ultrasound PERIPHERAL IV DATA: Not applicable SIGNED BY: MIRACLE Black July 04, 2024 10:25 PM Normal [facility] HNO ID: [id number] Author: KEVEN CORNELIUS CT Service: Radiology Author [...] PATIENT PRESENTS WITH AN IMPLANTABLE OR ATTACHED QUALITY CONTROL ANALYST: No ALLERGIES: Reviewed and unchanged CONTRAST ALLERGY: [...] PERIPHERAL IV DATA: Inpatient - refer to [facility] documentation RADIOLOGY DEPARTMENT: CT; Exam(s) Completed: Chest Abdomen Pelvis SIGNATURE: MIRACLE Brody PATIENT NAME: Michelle Mitchell DATE: July 04, 2024 TIME: 5:50 PM Normal [facility] BETA HCG, QUANTITATIVE FOR E Don 07-04-2024 HCG.beta subunit Qn 0.6 m[IU]/mL Normal <5.0 [facility] Comment on above: Order Comment: Speci men Type: BLOOD SPECIMENOrdering Facility: [facility] Address: [address] [place] [address] Result Comment: Oskar tirizwana Performed By: #### H CGED, 3040-3, 70683-7 ####[facility]IA [id number] [place] [address] [place] Bilirub SerPl-mCncon 025 Bilirubin [Mass/Vol] 0.6 mg/dL Normal 0.2-1.3 [facility] Comment on above: Order Comment: Speci men Type: BLOOD SPECIMENOrdering Facility: [facility] Address: [address] [place] [address] Performed By: #### 1 975-2, 15287-7, 45555-6, 5195-3 ####[facility] LABCLIA [id number] [place] [address] [place] C. trachomatis+N. gonorrhoea e DNA BIMAL+probe Ql (Unsp spec)on 07-04-2024 C. trachomatis rRNA BIMAL+probe Ql (Unsp spec) Not detected Normal Not detected [facility] Comment on above: Order Comment: Speci men Type: BLOOD SPECIMEN Ordering Facility: [facility] Address: [address] [place] [address] Performed By: #### 5 8410-2 #### [facility] CLIA [id number] 1000 [place] [address] [place] N. gonorrhoeae rRNA BIMAL+probe Ql (Unsp spec) Not detected Normal Not detected [facility] Comment on above: Order Comment: Speci men Type: BLOOD SPECIMEN Ordering Facility: [facility] Address: [address] [place] [address] Performed By: #### 5 8410-2 #### [facility] CLIA [id number] 1000 [place] [address] [place] CBC W Auto Differential pane l (Bld)on 07-04-2024 Basophils (Bld) [#/Vol] 0.05 10*3/uL Normal <0.11 [facility] Comment on above: Order Comment: Speci men Type: BLOOD SPECIMEN Ordering Facility: [facility] Address: [address] [place] [address] Performed By: #### 5 8410-2 #### [facility] CLIA [id number] 1000 [place] [address] [place] Basophils/100 WBC (Bld) 0.3 % Normal [facility] Comment on above: Order Comment: Speci men Type: BLOOD SPECIMEN Ordering Facility: [facility] Address: [address] [place] [address] Performed By: #### 5 8410-2 #### [facility] CLIA [id number] 1000 [place] [address] [place] Differential cell count method Nom (Bld) Auto Normal [facility] Comment on above: Order Comment: Speci men Type: BLOOD SPECIMEN Ordering Facility: [facility] Address: [address] [place] [address] Performed By: #### 5 8410-2 #### [facility] CLIA [id number] 1000 [place] [address] [place] Eosinophils (Bld) [#/Vol] 0.12 10*3/uL Normal <0.46 [facility] Comment on above: Order Comment: Speci men Type: BLOOD SPECIMEN Ordering Facility: [facility] Address: [address] [place] [address] Performed By: #### 5 8410-2 #### [facility] CLIA [id number] 1000 [place] [address] [place] Eosinophils/100 WBC (Bld) 0.8 % Normal [facility] Comment on above: Order Comment: Speci men Type: BLOOD SPECIMEN Ordering Facility: [facility] Address: [address] [place] [address] Performed By: #### 5 8410-2 #### [facility] CLIA [id number] [address] [place] Erythrocyte distribution width (RBC) [Ratio] 14.7 % Normal 11.5-15.0 [facility] Comment on above: Order Comment: Speci men Type: BLOOD SPECIMEN Ordering Facility: [facility] Address: [address] [place] [address] Performed By: #### 5 8410-2 #### [facility] CLIA [id number] 1000 [place] [address] [place] Hematocrit (Bld) [Volume fraction] 43.5 % Normal 36.0-46.0 [facility] Comment on above: Order Comment: Speci men Type: BLOOD SPECIMEN Ordering Facility: [facility] Address: [address] [place] [address] Performed By: #### 5 8410-2 #### [facility] CLIA [id number] [address] [place] Hemoglobin (Bld) [Mass/Vol] 14.0 g/dL Normal 11.5-15.5 [facility] Comment on above: Order Comment: Speci men Type: BLOOD SPECIMEN Ordering Facility: [facility] Address: [address] [place] [address] Performed By: #### 5 8410-2 #### [facility] CLIA [id number] [address] [place] Immature granulocytes (Bld) [#/Vol] 0.08 10*3/uL Normal <0.10 [facility] Comment on above: Order Comment: Speci men Type: BLOOD SPECIMEN Ordering Facility: [facility] Address: [address] [place] [address] Performed By: #### 5 8410-2 #### [facility] CLIA [id number] [address] [place] Immature granulocytes/100 WBC (Bld) 0.5 % Normal [facility] Comment on above: Order Comment: Speci men Type: BLOOD SPECIMEN Ordering Facility: [facility] Address: [address] [place] [address] Performed By: #### 5 8410-2 #### [facility] CLIA [id number] [address] [place] Lymphocytes (Bld) [#/Vol] 1.38 10*3/uL Normal 1.00-4.00 [facility] Comment on above: Order Comment: Speci men Type: BLOOD SPECIMEN Ordering Facility: [facility] Address: [address] [place] [address] Performed By: #### 5 8410-2 #### [facility] CLIA [id number] [address] Lymphocytes/100 WBC (Bld) 9.4 % Normal [facility] Comment on above: Order Comment: Speci men Type: BLOOD SPECIMEN Ordering Facility: [facility] Address: [address] [place] [address] Performed By: #### 5 8410-2 #### [facility] CLIA [id number] [address] MCH (RBC) [Entitic mass] 31.7 pg Normal 26.0-34.0 [facility] Comment on above: Order Comment: Speci men Type: BLOOD SPECIMEN Ordering Facility: [facility] Address: [address] [place] [address] Performed By: #### 5 8410-2 #### [facility] CLIA [id number] [address] MCHC (RBC) [Mass/Vol] 32.2 g/dL Normal 30.5-36.0 [facility] Comment on above: Order Comment: Speci men Type: BLOOD SPECIMEN Ordering Facility: [facility] Address: [address] [place] [address] Performed By: #### 5 8410-2 #### [facility] CLIA [id number] [address] MCV (RBC) [Entitic vol] 98.6 fL Normal 80.0-100.0 [facility] Comment on above: Order Comment: Speci men Type: BLOOD SPECIMEN Ordering Facility: [facility] Address: [address] [place] [address] Performed By: #### 5 8410-2 #### [facility] CLIA [id number] [address] Monocytes (Bld) [#/Vol] 0.61 10*3/uL Normal <0.87 [facility] Comment on above: Order Comment: Speci men Type: BLOOD SPECIMEN Ordering Facility: [facility] Address: [address] [place] [address] Performed By: #### 5 8410-2 #### [facility] CLIA [id number] [address] Monocytes/100 WBC (Bld) 4.1 % Normal [facility] Comment on above: Order Comment: Speci men Type: BLOOD SPECIMEN Ordering Facility: [facility] Address: [facility] [place] [address] Performed By: #### 5 8410-2 #### [facility] CLIA [id number] [address] [place] Neutrophils (Bld) [#/Vol] 12.51 10*3/uL High 1.45-7.50 [facility] Comment on above: Order Comment: Speci men Type: BLOOD SPECIMEN Ordering Facility: [facility] Address: [address] [place] [address] Performed By: #### 5 8410-2 #### [facility] CLIA [id number] [address] Neutrophils/100 WBC (Bld) 84.9 % Normal [facility] Comment on above: Order Comment: Speci men Type: BLOOD SPECIMEN Ordering Facility: [facility] Address: [address] [place] [address] Performed By: #### 5 8410-2 #### [facility] CLIA [id number] [address] [place] Nucleated RBC (Bld) [#/Vol] 10*3/uL Normal <0.01 [facility] Comment on above: Order Comment: Speci men Type: BLOOD SPECIMEN Ordering Facility: [facility] Address: [address] [place] [address] Performed By: #### 5 8410-2 #### [facility] CLIA [id number] [address] Nucleated RBC/100 WBC (Bld) [Ratio] 0.0 /100 WBC Normal [facility] Comment on above: Order Comment: Speci men Type: BLOOD SPECIMEN Ordering Facility: [facility] Address: [address] [place] [address] Performed By: #### 5 8410-2 #### [facility] CLIA [id number] [address] OF [facility] Platelet mean volume (Bld) [Entitic vol] 10.4 fL Normal 9.0-12.7 [facility] Comment on above: Order Comment: Speci men Type: BLOOD SPECIMEN Ordering Facility: [facility] Address: [address] [place] [address] Performed By: #### 5 8410-2 #### [facility] CLIA [id number] [address] [place] Platelets (Bld) [#/Vol] 251 10*3/uL Normal 150-400 [facility] Comment on above: Order Comment: Speci men Type: BLOOD SPECIMEN Ordering Facility: [facility] Address: [address] [place] [address] Performed By: #### 5 8410-2 #### [facility] CLIA [id number] [address] [place] RBC (Bld) [#/Vol] 4.41 10*6/uL Normal 3.90-5.20 [facility] Comment on above: Order Comment: Speci men Type: BLOOD SPECIMEN Ordering Facility: [facility] Address: [address] [place] [address] Performed By: #### 5 8410-2 #### [facility] CLIA [id number] [address] [place] [address] [place] WBC (Bld) [#/Vol] 14.75 10*3/uL High 3.70-11.00 [facility] Comment on above: Order Comment: Speci men Type: BLOOD SPECIMEN Ordering Facility: [facility] Address: [address] [place] [address] Performed By: #### 5 8410-2 #### [facility] CLIA [id number] [address] OF [place] CT ABD/PEL W IVCONon 025 CT ABD/PEL W IVCON * * *Final Report* * * DATE OF EXAM: Jul 04 2024 6:04PM [facility] [place] ABD/PEL W IVCON / [...] previous. Ascites, most prominent in the pelvis Animal Keeper Head: KIM Transcribe Date/Time: Jul 04 2024 7:04P Dictated by : MICHELLE MUÑOZ MD This examination was interpreted and the report reviewed and electronically signed by: MICHELLE MUÑOZ MD on Jul 04 2024 7:13PM EST [id number] Normal [facility] CTA CHEST (NON GATED) W IVCO N PEon 07-04-2024 CTA CHEST (NON GATED) W IVCON PE * * *Final Report* * * DATE OF EXAM: Jul 04 2024 6:04PM [facility] [place] [facility] - CTA CHEST (NON GATED) W [...] suggesting congestive heart failure or fluid overload. Animal Keeper Head: KIM Transcribe Date/Time: Jul 04 2024 6:47P Dictated by : MICHELLE MUÑOZ MD This examination was interpreted and the report reviewed and electronically signed by: MICHELLE MUÑOZ MD on Jul 04 2024 7:02PM EST [id number] Normal [facility] Comprehensive metabolic 2000 panelon 07-04-2024 Albumin [Mass/Vol] 3.9 g/dL Normal 3.9-4.9 [facility] Comment on above: Order Comment: Speci men Type: BLOOD SPECIMENOrdering Facility: [facility] Address: [address] [place] [address] Performed By: #### H CGED, 3040-3, 58341-4 ####[facility]ORYCLIA [id number] [address] ALP [Catalytic activity/Vol] 122 U/L Normal 34-123 [facility] Comment on above: Order Comment: Speci men Type: BLOOD SPECIMENOrdering Facility: [facility] Address: [address] [place] [address] Performed By: #### H CGED, 3040-3, 57388-4 ####[facility]ORYCLIA [id number] [address] [place] ALT [Catalytic activity/Vol] 40 U/L High 7-38 [facility] Comment on above: Order Comment: Speci men Type: BLOOD SPECIMENOrdering Facility: [facility] Address: [address] [place] [address] Performed By: #### H CGED, 3040-3, 84994-6 ####[facility]ORYCLIA [id number] [place] [id number] [place] [facility] Anion gap [Moles/Vol] 11 mmol/L Normal 8-15 [facility] Comment on above: Order Comment: Speci men Type: BLOOD SPECIMENOrdering Facility: [facility] Address: [address] [place] [address] Performed By: #### H CGED, 3040-3, 26679-0 ####[facility]ATORYCLIA [id number] [place] [address] [place] [facility] [place] AST [Catalytic activity/Vol] 40 U/L High 13-35 [facility] Comment on above: Order Comment: Speci men Type: BLOOD SPECIMENOrdering Facility: [facility] Address: [address] [place] [address] Performed By: #### Niko BOWDENED, 0-3, 22102-5 ####[facility]ORYCLIA [id number] [place] [address] [place] Bilirubin [Mass/Vol] 0.7 mg/dL Normal 0.2-1.3 [facility] Comment on above: Order Comment: Speci men Type: BLOOD SPECIMENOrdering Facility: [facility] Address: [address] [place] [address] Performed By: #### Niko BOWDENED, 3039-3, 57431-5 ####[facility]ATORYCLIA [id number] [place] [address] [place] Calcium [Mass/Vol] 8.8 mg/dL Normal 8.5-10.2 [facility] Comment on above: Order Comment: Speci men Type: BLOOD SPECIMENOrdering Facility: [facility] Address: [address] [place] [address] Performed By: #### Niko BOWDENED, 3, 41428-7 ####[facility]ORATORYCLIA [id number] [place] [address] [place] Chloride [Moles/Vol] 106 mmol/L Normal 98-107 [facility] Comment on above: Order Comment: Speci men Type: BLOOD SPECIMENOrdering Facility: [facility] Address: [address] [place] [address] Performed By: #### Niko CGED, 0-3, 89355-5 ####[facility] LABORATORYCLIA [id number] [place] [address] [place] CO2 [Moles/Vol] 21 mmol/L Low 22-30 [facility] Comment on above: Order Comment: Speci men Type: BLOOD SPECIMENOrdering Facility: [facility] Address: [address] [place] [address] Performed By: #### Niko CGED, 0-3, 19472-1 ####[facility]ORATORYCLIA [id number] [place] [id number] [place] [facility] Creatinine [Mass/Vol] 0.82 mg/dL Normal 0.58-0.96 [facility] Comment on above: Order Comment: David horton Type: BLOOD SPECIMENOrdering Facility: [facility] Address: [address] [place] [address] Performed By: #### H CGED, 3040-3, 94108-9 ####[facility]ORATORYCLIA [id number] [place] [id number] [facility] Creatinine and Glomerular filtration rate.predicted panel (S/P/Bld) 91 mL/min/1.73m??? Normal >=60 [facility] Comment on above: Order Comment: David horton Type: BLOOD SPECIMENOrdering Facility: [facility] Address: [address] [place] [address] Result Comment: Sandie mated Glomerular Filtration Rate [...] actual GFR. Performed By: #### H CGED, 0-3, 08516-9 ####[facility]ORATORYCLIA [id number] [place] [id number] [place] Glucose [Mass/Vol] 78 mg/dL Normal 74-99 [facility] Comment on above: Order Comment: David horton Type: BLOOD SPECIMENOrdering Facility: [facility] Address: [address] [place] [address] Result Comment: The [place] [employer] (ADA) provides guidance for cutoff [...] Standards of Medical Care in Diabetes 2016, [place] [employer]. Diabetes Care. 2016.39(Suppl 1). Performed By: #### H CGED, 0-3, 83140-5 ####[facility]ORATORYCLIA [id number] [place] [address] [place] Potassium [Moles/Vol] 4.4 mmol/L Normal 3.7-5.1 [facility] Comment on above: Order Comment: Speci men Type: BLOOD SPECIMENOrdering Facility: [facility] Address: [address] [place] [address] Performed By: #### H CGED, 3, 38214-8 ####[facility]ORATORYCLIA [id number] [place] [address] [place] Protein [Mass/Vol] 6.8 g/dL Normal 6.3-8.0 [facility] Comment on above: Order Comment: Speci men Type: BLOOD SPECIMENOrdering Facility: [facility] Address: [address] [place] [address] Performed By: #### H CGED, 3, 63409-9 ####[facility]ORATORYCLIA [id number] [place] [address] [place] Sodium [Moles/Vol] 138 mmol/L Normal 136-144 [facility] Comment on above: Order Comment: Speci men Type: BLOOD SPECIMENOrdering Facility: [facility] Address: [address] [place] [address] Performed By: #### H CGED, 03, 78764-0 ####[facility]ORATORYCLIA [id number] [place] [address] [place] Urea nitrogen [Mass/Vol] 16 mg/dL Normal 7-21 [facility] Comment on above: Order Comment: Speci men Type: BLOOD SPECIMENOrdering Facility: [facility] Address: [address] [place] [address] Performed By: #### H CGED, 03, 11092-3 ####[facility] LABORATORYCLIA [id number] [place] [address] [facility] ED NOTEon 07-04-2024 ED NOTE HNO ID: [id number] Author: JOSIE RODAS RN Service: Nursing Author Type: Registered Nurse Type: ED Notes Filed: 07/04/2024 21:35 Note Text: Pt is tearful at times Normal [facility] ED NOTE HNO ID: [id number] Author: JOSIE RODAS RN Service: Nursing Author Type: Registered Nurse Type: ED Notes Filed: 07/04/2024 21:34 Note Text: Pt has completed the ultrasound she has ambulated to the bathroom gait is steady pt states she still has abd pain and feels bloated Normal [facility] ED NOTE HNO ID: [id number] Author: JOSIE RODAS RN Service: Nursing Author Type: Registered Nurse Type: ED Notes Filed: 07/04/2024 21:16 Note Text: Pt has tolerated the ultrasound with mild distress Normal [facility] ED NOTE HNO ID: [id number] Author: JOSIE RODAS RN Service: Nursing Author Type: Registered Nurse Type: ED Notes Filed: 07/04/2024 20:01 Note Text: Pelvic exam per MARCIO Cueva pt tolerated fair Sample was sent Normal [facility] ED NOTE HNO ID: [id number] Author: JOSIE RODAS RN Service: Nursing Author Type: Registered Nurse Type: ED Notes Filed: 07/04/2024 19:47 Note Text: PA is bedside Normal [facility] ED NOTE HNO ID: [id number] Author: JOSIE RODAS RN Service: Nursing Author Type: Registered Nurse Type: ED Notes Filed: 07/04/2024 19:08 Note Text: Pt is in a position of comfort Normal [facility] ED PROGRESS NOTE (PROVIDER)o n 07-04-2024 ED PROGRESS NOTE (PROVIDER) HNO ID: [id number] Author: SHANNA HARRIS MD Service: Emergency Medicine Author Type: Physician [...] intractable abdominal pain. Reportedly, was seen at [facility] on two occasions with labs and CTs (non of which we can see in EMR) thought to possibly have Crohn's. PCP is Dr. Wilkinson who directed patient to come to [place]. At time of sign out patient is [...] no CMT. Swabs sent. Discussed with Dr. Wilkinson and will admit RNF. Clinical Impressions as of 07/04/241941 Intractable abdominal pain Leukocytosis, unspecified type Transaminitis Acute on chronic heart failure, unspecified heart failure type (HCC) Medical Decision Making Old records reviewed: EMR reviewed and Discussion with another provider: Dr. Wilkinson. SIGNATURE: Anay Sandhu PA-C PATIENT NAME: Michelle Mitchell DATE: July 04, 2024 TIME: 7:24 PM PAGER/CONTACT #: [facility] ED PROV NOTEon 07-04-2024 ED PROV NOTE HNO ID: [id number] Author: SHANNA HARRIS MD Service: ? Author Type: Physician Translational Specialist Type: ED Provider Notes Filed: 07/04/2024 20:18 Note Text: -------- Attestation signed by Shanna Harris MD at 07/04/2024 8:18 PM Attending Note [...] last 4 days. She was seen at [facility] where she had labs and CAT scan [...] be admitted for further evaluation. Signature: Shanna Harris MD Date: 07/04/2024 Time: 8:15 PM -------- ED Provider Note Patient Name: Michelle Mitchell : 1980 SERVICE DATE: 07/04/24 History Patient presents with: Abdominal Pain: was seen twice at [facility] her dr andres her to come here pt states pain is not getting better 43-year-old female with a past medical history of breast cancer, CHF, GERD, kidney stones, presents to the ED today for abdominal pain, patient's had abdominal pain on and off now for the last couple weeks, she has been seen at [facility] twice over the last few days [...] PERMANENT TRANSVENOUS PACEMAKER INSERTION 2006 ICD implant, [facility] ANESTHESIA TUBAL LIGATION/TRANSECTION APPENDECTOMY 05/05/2014 , lap BREAST LUMPECTOMY HX Left 1997 with radiation CHOLECYSTECTOMY HX 08/2010 lap COLONOSCOPY AND POLYPECTOMY 08/07/2015 CONIZATION CERVIX W/WO DANDC RPR KNIFE/LASER CIS EGD 08/25/2017 [facility]abb[facility]- normal ENDOMETRIAL ABLATION WITH US GUIDANCE for abnormal uterine bleeding EXCISION OF CYST 08/23/2017 Dr. Velsaco Excision of sebaceous cyst IMPLANTABLE CARDIAC DEFIB [...] use: N (more content not included)... Normal [facility] HAV IgM Ser Qlon 07-04-2024 HAV IgM Ql (S) Negative Normal Negative [facility] Comment on above: Order Comment: Speci men Type: BLOOD SPECIMENOrdering Facility: [facility] Address: [address] [place] [address] Result Comment: No e vidence of recent infection with Hepatitis A virus. Performed By: #### 1 975-2, 10349-6, 63452-7, 5195-3 ####[facility] LABCLIA [id number] [place] [address] [place] HBV core IgM Ser Qlon 2024 HBV core IgM Ql (S) Negative Normal Negative [facility] Comment on above: Order Comment: Speci men Type: BLOOD SPECIMENOrdering Facility: [facility] Address: [address] [place], [place] [address] Result Comment: No e vidence of recent infection with Hepatitis B virus. Should recent infection be suspected, repeat testing may be considered 3-4 weeks after this draw. Performed By: #### 1 975-2, 45062-2, 56812-8, 5195-3 ####[facility] LABCLIA [id number] [place] [address] [place] HBV surface Ag Ser Qlon 06-13 HBV surface Ag Ql (S) Negative Normal Negative [facility] Comment on above: Order Comment: Speci men Type: BLOOD SPECIMENOrdering Facility: [facility] Address: [address] [place] [address] Performed By: #### 1 975-2, 05414-4, 27710-7, 5195-3 ####[facility] LABCLIA [id number] [place] [address] [place] HCV RNA BIMAL+probe Qnon 07-04 HCV RNA BIMAL+probe Ql Not detected Normal Not detected [facility] Comment on above: Order Comment: Speci men Type: BLOOD SPECIMEN [facility] Address: [address] [place] [address] Performed By: #### 1 1011-4 #### [facility] CLIA [id number] [address] [place] [address] [place] Lipase SerPl-cCncon 07-05-19 25 Lipase [Catalytic activity/Vol] 26 U/L Normal 16-61 [facility] Comment on above: Order Comment: Speci men Type: BLOOD SPECIMENOrdering Facility: [facility] Address: [address] [place] [address] Performed By: #### H CGED, 3040-3, 72067-8 ####[facility] LABORATORYCLIA [id number] [place] [address] [place] Pacemaker Checkon 07-04-2024 Pacemaker Check Normal [facility] TRICHOMONAS VAGINALIS NAATon 07-04-2024 T. 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 Images were obtained and stored in a permanent archive. MQ: [facility]_2021 COMPARISON: CT abdomen and pelvis same day [...] reportedly surgically absent. 3. Moderate pelvic ascites. 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 3. Moderate pelvic ascites. Animal Keeper Head: KIM Transcribe Date/Time: Jul 05 2024 12:55A Dictated by : ANASTASIA MEADOWS DO This examination was interpreted and the report reviewed and electronically signed by: ANSATASIA MEADOWS DO on Jul 05 2024 1:06AM EST [id number] Normal [facility] Urinalysis complete panel (U )on 07-04-2024 Bilirubin Ql (U) Negative Normal Negative [facility] Comment on above: Order Comment: Speci men Type: URINE SPECIMENOrdering Facility: [facility] Address: [address] [place] [address] Performed By: #### 2 4356-8 ####[facility] LABORATORYCLIA [id number] [place] [address] [place] Clarity (Unsp spec) Clear Normal Clear [facility] Comment on above: Order Comment: Speci men Type: URINE SPECIMENOrdering Facility: [facility] Address: [address] [place] [address] Performed By: #### 2 4356-8 ####[facility]ORATORYCLIA [id number] [place] [address] [place] Color (U) Yellow Normal Yellow [facility] Comment on above: Order Comment: Speci men Type: URINE SPECIMENOrdering Facility: [facility] Address: [address] [place] [address] Performed By: #### 2 4356-8 ####[facility]ORATORYCLIA [id number] [address] [place] Epithelial cells LM.HPF (Urine sed) [#/Area] Few Normal [facility] Comment on above: Order Comment: Speci men Type: URINE SPECIMENOrdering Facility: [facility] Address: [address] [place] [address] Performed By: #### 2 4356-8 ####[facility] LABORATORYCLIA [id number] [place] [address] [place] Glucose Test strip (U) [Mass/Vol] Negative Normal Negative [facility] Comment on above: Order Comment: Speci men Type: URINE SPECIMENOrdering Facility: [facility] Address: [address] [place] [address] Performed By: #### 2 4356-8 ####[facility] LABORATORYCLIA [id number] [place] [address] [place] Hemoglobin Ql (U) 1+ Abnormal Negative [facility] Comment on above: Order Comment: Speci men Type: URINE SPECIMENOrdering Facility: [facility] Address: [address] [place] [address] Performed By: #### 2 4356-8 ####[facility]ORATORYCLIA [id number] [place] [address] [place] Ketones Ql (U) Negative Normal Negative [facility] Comment on above: Order Comment: Speci men Type: URINE SPECIMENOrdering Facility: [facility] Address: [address] [place] [address] Performed By: #### 2 4356-8 ####[facility]ORATORYCLIA [id number] [address] Leukocyte esterase Test strip Ql (U) Negative Normal Negative [facility] Comment on above: Order Comment: Speci men Type: URINE SPECIMENOrdering Facility: [facility] Address: [address] [place] [address] Performed By: #### 2 4356-8 ####[facility]ORATORYCLIA [id number] [address] [place] Nitrite Ql (U) Negative Normal Negative [facility] Comment on above: Order Comment: Speci men Type: URINE SPECIMENOrdering Facility: [facility] Address: [address] [place] [address] Performed By: #### 2 4356-8 ####[facility]ORATORYCLIA [id number] [address] [place] pH (U) 6.0 [pH] Normal 5.0-8.0 [facility] Comment on above: Order Comment: Speci men Type: URINE SPECIMENOrdering Facility: [facility] Address: [address] [place] [address] Performed By: #### 2 4356-8 ####[facility]ORATORYCLIA [id number] [address] Protein (U) [Mass/Vol] Negative Normal Negative [facility] Comment on above: Order Comment: Speci men Type: URINE SPECIMENOrdering Facility: [facility] Address: [address] [place] [address] Performed By: #### 2 4356-8 ####[facility] LABORATORYCLIA [id number] [place] [address] [place] RBC LM.HPF (Urine sed) [#/Area] 0-3 /HPF Normal 0-3 /HPF [facility] Comment on above: Order Comment: Speci men Type: URINE SPECIMENOrdering Facility: [facility] Address: [address] [place] [address] Performed By: #### 2 4356-8 ####[facility]ORATORYCLIA [id number] [address] Specific gravity (U) [Rel density] 1.010 Normal 1.005-1.03 0 [facility] Comment on above: Order Comment: Speci men Type: URINE SPECIMENOrdering Facility: [facility] Address: [address] [place] [address] Performed By: #### 2 4356-8 ####[facility]ORATORYCLIA [id number] [address] Urobilinogen Ql (U) 0.2 EU/dL Normal 0.2-1.0 EU/dL [facility] Comment on above: Order Comment: Speci men Type: URINE SPECIMENOrdering Facility: [facility] Address: [address] [place] [address] Performed By: #### 2 4356-8 ####[facility]ORATORYCLIA [id number] [address] WBC LM.HPF (Urine sed) [#/Area] 0-5 /HPF Normal 0-5 /HPF [facility] Comment on above: Order Comment: Speci men Type: URINE SPECIMENOrdering Facility: [facility] Address: [address] [place] [address] Performed By: #### 2 4356-8 ####[facility] LABORATORYCLIA [id number] [address] [place] Abdomen/Pelvis W IV Cont ONL Yon 07-03-2024 Abdomen/Pelvis W IV Cont ONLY Normal [facility] Absolute lymphocyte countOrd ered By: Nabor Frey on 07-03-2024 Lymphocytes Auto (Unsp spec) [#/Vol] 0.93 10*3/uL 0.83-4.51 [facility] Absolute neutrophil countOrd ered By: Nabor Frey on 07-03-2024 Neutrophils (Bld) [#/Vol] 20.3 10*3/uL High 2.0-7.7 [facility] Anion gap in Serum or Plasma Ordered By: Nabor Frey on 07-03-2024 Anion gap [Moles/Vol] 10 mmol/L 5-15 [facility] Automated lymphocyte count a s percentage of total leukocytesOrdered By: Nabor Frey on 07-03-2024 Lymphocytes/100 WBC Auto (Unsp spec) 4.2 % Low 19-41 [facility] BUN/creatinine ratioOrdered By: Nabor [place] on 07-03-2024 Urea nitrogen/Creatinine [Mass ratio] 17.1 mg/mg 10- [facility] Basic Metabolic Profile (BMP )on 07-03-2024 BUN/CRE 17.1 RATIO Normal - [facility] Comment on above: Performed By: #### L 700.6800, L500.2500, L501.2450, L500.3400, L100.0100 ####[facility] [address] [place], [address] Calcium [Mass/Vol] 9.3 mg/dL Normal 7.6-11.0 [facility] Comment on above: Performed By: #### L 700.6800, L500.2500, L501.2450, L500.3400, L100.0100 ####[facility] [address] [place], [address] Chloride [Moles/Vol] 106 mmol/L Normal 98-108 [facility] Comment on above: Performed By: #### L 700.6800, L500.2500, L501.2450, L500.3400, L100.0100 ####[facility] [address] [place], [address] CO2 [Moles/Vol] 21.4 mmol/L Normal 21.0-32.0 [facility] Comment on above: Performed By: #### L 700.6800, L500.2500, L501.2450, L500.3400, L100.0100 ####[facility] [address] [place], [address] Creatinine [Mass/Vol] 0.81 mg/dL Normal 0.70-1.20 [facility] Comment on above: Performed By: #### L 700.6800, L500.2500, L501.2450, L500.3400, L100.0100 ####[facility] [address] [place], [address] ECRCL 76.53 ml/min Normal 50-250 [facility] Comment on above: Performed By: #### L 700.6800, L500.2500, L501.2450, L500.3400, L100.0100 ####[facility] [address] [place], [address] GAP 10 Normal 5-15 [facility] Comment on above: Performed By: #### L 700.6800, L500.2500, L501.2450, L500.3400, L100.0100 ####[facility] [address] [place], [address] GFR/1.73 sq M.predicted among non-blacks MDRD (S/P/Bld) [Vol rate/Area] 91 mL/min/{1.73_m2} Normal >60 [facility] Comment on above: Result Comment: mL/m in/1.73m2 CKD-EPI Creatinine Equation (2020) Performed By: #### L 700.6800, L500.2500, L501.2450, L500.3400, L100.0100 ####[facility] [address] [place], [address] Glucose [Mass/Vol] 104 mg/dL High 70-99 [facility] Comment on above: Performed By: #### L 700.6800, L500.2500, L501.2450, L500.3400, L100.0100 ####[facility] [address] [place], [address] Potassium [Moles/Vol] 4.4 mmol/L Normal 3.3-5.1 [facility] Comment on above: Performed By: #### L 700.6800, L500.2500, L501.2450, L500.3400, L100.0100 ####[facility] [address] [place], [place], [address] Sodium [Moles/Vol] 138 mmol/L Normal 133-145 [facility] Comment on above: Performed By: #### L 700.6800, L500.2500, L501.2450, L500.3400, L100.0100 ####[facility] [address] [place], [address] Urea nitrogen [Mass/Vol] 14 mg/dL Normal 4-19 [facility] Comment on above: Performed By: #### L 700.6800, L500.2500, L501.2450, L500.3400, L100.0100 ####[facility] [address] [place], [place], [address] Basophil percentageOrdered B y: Nabor Frey on 07-03-2024 Basophils/100 WBC (Bld) 0.2 % 0-1 [facility] Bilirubin Test strip Ql (U)O rdered By: Nabor Frey on 07-03-2024 Bilirubin Ql (U) Negative Negative [facility] Bilirubin directOrdered By: Nabor Frey on 07-03-2024 Bilirubin.direct [Mass/Vol] 0.27 mg/dL 0.00-0.30 [facility] Bilirubin, totalOrdered By: Nabor Frey on 07-03-2024 Bilirubin [Mass/Vol] 0.64 mg/dL 0.00-1.30 [facility] CBC W/Diff, Automatedon 06-13 Absolute Lymph 0.93 X10 3/uL Normal 0.83-4.51 [facility] Comment on above: Performed By: #### L 700.6800, L500.2500, L501.2450, L500.3400, L100.0100 ####[facility] [address] [place], [address] Absolute Neut 20.3 X10 3/uL High 2.0-7.7 [facility] Comment on above: Performed By: #### L 700.6800, L500.2500, L501.2450, L500.3400, L100.0100 ####[facility] [address] [place], [address] Basophils/100 WBC (Bld) 0.2 % Normal 0-1 [facility] Comment on above: Performed By: #### L 700.6800, L500.2500, L501.2450, L500.3400, L100.0100 ####[facility] [address] [place], [address] Eosinophils/100 WBC (Bld) 0.1 % Normal 0-5 [facility] Comment on above: Performed By: #### L 700.6800, L500.2500, L501.2450, L500.3400, L100.0100 ####[facility] [address] [place], [address] Erythrocyte distribution width (RBC) [Ratio] 15.3 % High 11.6-14.6 [facility] Comment on above: Performed By: #### L 700.6800, L500.2500, L501.2450, L500.3400, L100.0100 ####[facility] [address] [place], [address] Hematocrit (Bld) [Volume fraction] 41.5 % Normal 37-47 [facility] Comment on above: Performed By: #### L 700.6800, L500.2500, L501.2450, L500.3400, L100.0100 ####[facility] [address] [place], [address] Hemoglobin (Bld) [Mass/Vol] 13.8 g/dL Normal 12.0-15.0 [facility] Comment on above: Performed By: #### L 700.6800, L500.2500, L501.2450, L500.3400, L100.0100 ####[facility] [address] [place], [address] IG% 0.900 Normal 0.0-0.9 [facility] Comment on above: Result Comment: IG% - Immature Granulocytes (promyelocytes, myelocytes andmetamyelocytes) > 1% indicates that a LEFT SHIFT is Present. Performed By: #### L 700.6800, L500.2500, L501.2450, L500.3400, L100.0100 ####[facility] [place] [address] [place], [address] Lymphocytes/100 WBC (Bld) 4.2 % Low 19-41 [facility] Comment on above: Performed By: #### L 700.6800, L500.2500, L501.2450, L500.3400, L100.0100 ####[facility] [place] [address] [place], [address] MCH (RBC) [Entitic mass] 32.6 pg High 27.0-32.0 [facility] [place] Comment on above: Performed By: #### L 700.6800, L500.2500, L501.2450, L500.3400, L100.0100 ####[facility] [place] [address] [place], [address] MCHC (RBC) [Mass/Vol] 33.3 g/dL Normal 32-36 [facility] Comment on above: Performed By: #### L 700.6800, L500.2500, L501.2450, L500.3400, L100.0100 ####[facility] [place] [address] [place], [address] MCV (RBC) [Entitic vol] 98.1 fL Normal 81-99 [facility] Comment on above: Performed By: #### L 700.6800, L500.2500, L501.2450, L500.3400, L100.0100 ####[facility] [place] [address] [place], [address] Monocytes/100 WBC (Bld) 2.6 % Normal 0-10 [facility] Comment on above: Performed By: #### L 700.6800, L500.2500, L501.2450, L500.3400, L100.0100 ####[facility] [place] [address] [place], [address] Neutrophils/100 WBC (Bld) 92.0 % High 47-70 [facility] [place] Comment on above: Performed By: #### L 700.6800, L500.2500, L501.2450, L500.3400, L100.0100 ####[facility] [place] [address] [place], [address] Nucleated RBC (Bld) [#/Vol] 0 10*3/uL Normal 0-5 [facility] [place] Comment on above: Performed By: #### L 700.6800, L500.2500, L501.2450, L500.3400, L100.0100 ####[facility] [place] [address] [place], [address] Platelet mean volume (Bld) [Entitic vol] 11.2 fL Normal 6.2-12.0 [facility] [place] Comment on above: Performed By: #### L 700.6800, L500.2500, L501.2450, L500.3400, L100.0100 ####[facility] [place] [address] [place], [address] Platelets (Bld) [#/Vol] 237 10*3/uL Normal 150-450 [facility] [place] Comment on above: Performed By: #### L 700.6800, L500.2500, L501.2450, L500.3400, L100.0100 ####[facility] [place] [address] [place], [address] RBC (Bld) [#/Vol] 4.23 10*6/uL Normal 4.2-5.4 [facility] Comment on above: Performed By: #### L 700.6800, L500.2500, L501.2450, L500.3400, L100.0100 ####[facility] [place] [address] [place], [address] RDW SD 54.4 fl High 35.1-43.9 [facility] [place] Comment on above: Performed By: #### L 700.6800, L500.2500, L501.2450, L500.3400, L100.0100 ####[facility] [place] [address] [place], [address] WBC (Bld) [#/Vol] 22.0 10*3/uL High 4.4-11.0 [facility] Comment on above: Performed By: #### L 700.6800, L500.2500, L501.2450, L500.3400, L100.0100 ####[facility] [place] [address] [place], [address] Carbon dioxide, total [Moles /volume] in Central venous bloodOrdered By: Nabor Frey on 07-03-2024 CO2 [Moles/Vol] 21.4 mmol/L 21.0-32.0 [facility] Chloride assayOrdered By: Carlton Frey on 07-03-2024 Chloride [Moles/Vol] 106 mmol/L 98-108 [facility] Emergency Department Summary on 07-03-2024 Emergency Department Summary Normal [facility] Eosinophil percentageOrdered By: Nabor Frey on 07-03-2024 Eosinophils/100 WBC (Bld) 0.1 % 0-5 [facility] [place] Erythrocyte distribution wid th ratioOrdered By: Nabor Frey on 07-03-2024 Erythrocyte distribution width (RBC) [Ratio] 15.3 % High 11.6-14.6 [facility] [place] Erythrocyte distribution wid th standard deviationOrdered By: Nabor Frey on 07-03-2024 Erythrocyte distribution width (RBC) [Ratio] 54.4 fl High 35.1-43.9 [facility] Gastroenterology Visit Repor ton 07-03-2024 Gastroenterology Visit Report Normal [facility] Glomerular filtration rate ( GFR) estimation/1.73 sq m using serum, plasma, or whole bOrdered By: Nabor Frey on 07-03-2024 GFR/1.73 sq M.predicted among non-blacks MDRD (S/P/Bld) [Vol rate/Area] 91 mL/min/{1.73_m2} >60 [facility] [place] Comment on above: mL/min/1.73m2 CKD-EP I Creatinine Equation (2020) Hematocrit Auto (Bld) [Volum e fraction]Ordered By: Nabor Frey on 07-03-2024 Hematocrit (Bld) [Volume fraction] 41.5 % 37-47 [facility] Hemoglobin measurementOrdere d By: Nabor Frey on 07-03-2024 Hemoglobin (Bld) [Mass/Vol] 13.8 g/dL 12.0-15.0 [facility] [place] Immature granulocytes/100 WB C Auto (Bld)Ordered By: Nabor Frey on 07-03-2024 Immature granulocytes/100 WBC (Bld) 0.900 % 0.0-0.9 [facility] Comment on above: IG% - Immature Granu locytes (promyelocytes, myelocytes and metamyelocytes) > 1% indicates that a LEFT SHIFT is Present. Ketones Test strip Ql (U)Ord ered By: Nabor Frey on 07-03-2024 Ketones Ql (U) Negative Negative [facility] Laboratory - Chemistry and C hemistry - challengeOrdered By: Nabor Frey on 07-03-2024 AST [Catalytic activity/Vol] 33 U/L High <32 [facility] Lipaseon 07-03-2024 Lipase [Catalytic activity/Vol] 25 U/L Normal 13-75 [facility] Comment on above: Result Comment: Liam rader note:LIPASE revised reference range effective 22.New Lipase methodology. Expected to produce lower valuesthan the previous assay method.NEW Reference Range: 13 - 75 U/L Performed By: #### L 700.6800, L500.2500, L501.2450, L500.3400, L100.0100 ####[facility] [place] [address] [place], [address] Lipase measurementOrdered By : Nabor Frey on 07-03-2024 Lipase [Catalytic activity/Vol] 25 U/L 13-75 [facility] Comment on above: Please note:LIPASE r evised reference range effective 22. New Lipase methodology. Expected to produce lower values than the previous assay method. NEW Reference Range: 13 - 75 U/L Liver Profileon 07-03-2024 Albumin [Mass/Vol] 4.2 g/dL Normal 3.5-5.0 [facility] Comment on above: Performed By: #### L 700.6800, L500.2500, L501.2450, L500.3400, L100.0100 ####[facility] [place] [address] [place], [address] ALK PHOS 111 U/L High 35-104 [facility] Comment on above: Performed By: #### L 700.6800, L500.2500, L501.2450, L500.3400, L100.0100 ####[facility] [address] [place], [address] ALT [Catalytic activity/Vol] 33 U/L Normal <=34 [facility] Comment on above: Performed By: #### L 700.6800, L500.2500, L501.2450, L500.3400, L100.0100 ####[facility] [place] [address] [place], [address] AST [Catalytic activity/Vol] 33 U/L High <=31 [facility] Comment on above: Performed By: #### L 700.6800, L500.2500, L501.2450, L500.3400, L100.0100 ####[facility] [place] [address] [place], [address] Bilirubin [Mass/Vol] 0.64 mg/dL Normal 0.00-1.30 [facility] Comment on above: Performed By: #### L 700.6800, L500.2500, L501.2450, L500.3400, L100.0100 ####[facility] [place] [address] [place], [address] Bilirubin.direct [Mass/Vol] 0.27 mg/dL Normal 0.00-0.30 [facility] [place] Comment on above: Performed By: #### L 700.6800, L500.2500, L501.2450, L500.3400, L100.0100 ####[facility] [place] [address] [place], [address] Globulin (S) [Mass/Vol] 2.3 g/dL Normal 2.2-4.2 [facility] Comment on above: Performed By: #### L 700.6800, L500.2500, L501.2450, L500.3400, L100.0100 ####[facility] [place] [address] [place], [address] T PROT 6.5 g/dL Normal 5.9-8.4 [facility] [place] Comment on above: Performed By: #### L 700.6800, L500.2500, L501.2450, L500.3400, L100.0100 ####[facility] [place] [address] [place], [address] MCV (mean corpuscular volume ) determinationOrdered By: Nabor Frey on 07-03-2024 MCV (RBC) [Entitic vol] 98.1 fL 81-99 [facility] Mean corpuscular hemoglobin (MCH) determinationOrdered By: Nabor Frey on 07-03-2024 MCH (RBC) [Entitic mass] 32.6 pg High 27.0-32.0 [facility] [place] Mean corpuscular hemoglobin concentration (MCHC) determinationOrdered By: Nabor Frey on 07-03-2024 MCHC (RBC) [Mass/Vol] 33.3 g/dL 32-36 [facility] Mean platelet volume determi nationOrdered By: Nabor Frey on 07-03-2024 Platelet mean volume (Bld) [Entitic vol] 11.2 fL 6.2-12.0 [facility] [place] Microscopic analysis of urin e for red blood cells (RBC)Ordered By: Nabor Frey on 07-03-2024 Microscopic analysis of urine for red blood cells (RBC) 0-5 SEEN /hpf 0-5 [facility] Monocyte percentageOrdered B y: Nabor Frey on 07-03-2024 Monocytes/100 WBC (Bld) 2.6 % 0-10 [facility] Mucus LM Ql (Urine sed)Order ed By: Nabor Frey on 07-03-2024 Mucus Ql (Urine sed) 0 SEEN /hpf [facility] Neutrophil percentageOrdered By: Nabor Frey on 07-03-2024 Neutrophils/100 WBC (Bld) 92.0 % High 47-70 [facility] Nitrite Test strip Ql (U)Ord ered By: Nabor Frey on 07-03-2024 Nitrite Ql (U) Negative Negative [facility] No Panel InformationOrdered By: Nabor Frey on 07-03-2024 33 U/L High <32 [facility] Nucleated red blood cell per centageOrdered By: Nabor Frey on 07-03-2024 Nucleated RBC/100 WBC (Bld) [Ratio] 0 % 0-5 [facility] Platelet countOrdered By: Carlton Frey on 07-03-2024 Platelets (Bld) [#/Vol] 237 10*3/uL 150-450 [facility] [place] Potassium measurement (mass/ volume)Ordered By: Nabor Frey on 07-03-2024 Potassium (Unsp spec) [Mass/Vol] 4.4 mmol/L 3.3-5.1 [facility] ,Serum,hCG Quali.on 07-03-2024 HCG, SERUM QUAL Negative Normal [facility] Comment on above: Performed By: #### L 700.6800, L500.2500, L501.2450, L500.3400, L100.0100 ####[facility] [address] [place], [address] Protein Test strip Ql (U)Ord ered By: Nabor Frey on 07-03-2024 Protein Ql (U) 30 mg/dl High Negative [facility] RBC Auto (Bld) [#/Vol]Ordere d By: Nabor Frey on 07-03-2024 RBC (Bld) [#/Vol] 4.23 10*6/uL 4.2-5.4 [facility] Serum beta-hCG test, qualita tiveOrdered By: Nabor Frey on 07-03-2024 Beta HCG ( test) Ql Negative [facility] Serum creatinine measurement (mass/volume)Ordered By: Nabor Frey on 07-03-2024 Creatinine [Mass/Vol] 0.81 mg/dL 0.70-1.20 [facility] Serum globulin measurementOr dered By: Nabor Frey on 07-03-2024 Globulin (S) [Mass/Vol] 2.3 g/dL 2.2-4.2 [facility] Serum glucose measurement (m ass/volume)Ordered By: Nabor Frey on 07-03-2024 Glucose [Mass/Vol] 104 mg/dL High 70-99 [facility] Serum or plasma alanine hair otransferase (ALT) measurementOrdered By: Nabor Frey on 07-03-2024 ALT [Catalytic activity/Vol] 33 U/L <35 [facility] Serum or plasma albumin leslie urement (mass/volume)Ordered By: Nabor Frey on 07-03-2024 Albumin [Mass/Vol] 4.2 g/dL 3.5-5.0 [facility] Serum or plasma alkaline delfin sphatase measurementOrdered By: Nabor Frey on 07-03-2024 ALP [Catalytic activity/Vol] 111 U/L High 35-104 [facility] [place] Serum or plasma calcium leslie urement (mass/volume)Ordered By: Nabor Frey on 07-03-2024 Calcium [Mass/Vol] 9.3 mg/dL 7.6-11.0 [facility] Serum or plasma urea nitroge n measurement (mass/volume)Ordered By: Nabor Frey on 07-03-2024 Urea nitrogen [Mass/Vol] 14 mg/dL 4-19 [facility] Sodium levelOrdered By: Charli Frey on 07-03-2024 Sodium [Moles/Vol] 138 mmol/L 133-145 [facility] Squamous epithelial cells de tection in urine sediment by light microscopyOrdered By: Nabor Frey on 07-03-2024 Epithelial cells.squamous LM Ql (Urine sed) 10-25 SEEN /hpf 5-10 [facility] Total proteinOrdered By: Juan Daniel Frey on 07-03-2024 Protein [Mass/Vol] 6.5 g/dL 5.9-8.4 [facility] Urinalysis, Completeon 07-03 BILIRUBIN URINE Negative Normal Negative [facility] Comment on above: Order Comment: CLEAN CATCH Performed By: #### L 400.0001 ####[facility] [place] [address] [place], [place], [id number] Clarity (U) Sl. Cloudy Normal Clear [facility] Comment on above: Order Comment: CLEAN CATCH Performed By: #### L 400.0001 ####[facility] [address] [place], [place], [id number] Color (U) Yellow Normal Yellow [facility] Comment on above: Order Comment: CLEAN CATCH Performed By: #### L 400.0001 ####[facility] [address] [place], [address] GLUCOSE, UR Normal Normal Normal [facility] Comment on above: Order Comment: CLEAN CATCH Performed By: #### L 400.0001 ####[facility] [address] [place], [address] KETONE UR Negative Normal Negative [facility] Comment on above: Order Comment: CLEAN CATCH Performed By: #### L 400.0001 ####[facility] [address] [place], [address] LEUK ESTERASE Negative Normal Negative [facility] Comment on above: Order Comment: CLEAN CATCH Performed By: #### L 400.0001 ####[facility] [address] [place], [address] Nitrite Ql (U) Negative Normal Negative [facility] Comment on above: Order Comment: CLEAN CATCH Performed By: #### L 400.0001 ####[facility] [address] [place], [address] OCCULT BLOOD-UR 25 /ul Abnormal Negative [facility] Comment on above: Order Comment: CLEAN CATCH Performed By: #### L 400.0001 ####[facility] [address] [place], [address] pH UR 6.5 Normal 5.0 - 8.0 [facility] Comment on above: Order Comment: CLEAN CATCH Performed By: #### L 400.0001 ####[facility] [address] [place] [id number] PROT DIPSTX 30 mg/dl Abnormal Negative [facility] Comment on above: Order Comment: CLEAN CATCH Performed By: #### L 400.0001 ####[facility] [address] [place], [address] SP.GR. DIPSTX 1.010 Normal 1.002-1.03 0 [facility] Comment on above: Order Comment: CLEAN CATCH Performed By: #### L 400.0001 ####[facility] [address] [place], [address] UROBILI Normal Normal Normal [facility] Comment on above: Order Comment: CLEAN CATCH Performed By: #### L 400.0001 ####[facility] [address] [facility] [address] Urine clarityOrdered By: Juan Daniel Frey on 07-03-2024 Clarity (U) Sl. Cloudy Clear [facility] Urine color determinationOrd ered By: Nabor Frey on 07-03-2024 Color (U) Yellow Yellow [facility] Urine glucose detectionOrder ed By: Nabor Frey on 07-03-2024 Glucose Ql (U) Normal mg/dl Normal [facility] Urine leukocyte esterase det ection by dipstickOrdered By: Nabor Frey on 07-03-2024 Leukocyte esterase Test strip Ql (U) Negative Negative [facility] Urine pHOrdered By: Nabor segal on 07-03-2024 pH (U) 6.5 [pH] 5.0 - 8.0 [facility] Urine sediment bacteria coun t by microscopy (number/high power field)Ordered By: Nabor Frey on 07-03-2024 Bacteria LM.HPF (Urine sed) [#/Area] 1 /[HPF] None Seen [facility] Urine specific gravity measu rementOrdered By: Nabor Frey on 07-03-2024 Specific gravity (U) [Rel density] 1.010 1.002-1.03 0 [facility] Urine urobilinogen measureme ntOrdered By: Nabor Frey on 07-03-2024 Urobilinogen Ql (U) Normal mg/dl Normal [facility] White blood cell (WBC) count Ordered By: Nabor Frey on 07-03-2024 WBC (Bld) [#/Vol] 22.0 10*3/uL High 4.4-11.0 [facility] White blood cell countOrdere d By: Nabor Frey on 07-03-2024 White blood cell count 0-5 SEEN /hpf 0-5 [facility] 36on 07-01-2024 36 Your fax has been successfully sent to Dr. Wilkinson at [phone]. From: Ella Cohen RN 07/01/2024 3:37:02 PM Origin Record Created by SHANTE 07/01/2024 3:37:12 PM Conversion [[id number].PRT] Type: application/postscript G3 to TIFF #1: Success [image/g3] (77ms) GhostScript TIFF #1: Success [image/tiff] (209ms) ([id number]) 07/01/2024 3:37:18 PM Transmission Record Sent to [id number] with remote ID "[id number]" Result: Success Page record: 1 - 3 Elapsed time: 01:39 on channel 48 07/01/2024 3:37:19 PM Conversion Successfully created cover sheet. Type: application/vnd.openxmlf ormats-officedocument.wo rdprocessingml.document G3 to TIFF #1: Success [image/g3] (11ms) GhostScript TIFF #1: Success [image/tiff] (70ms) Resubmitted: [application/postscript] Word Automation #1: Success [image/g3] (1519ms) ([id number]) [facility] 36 S: Patient spoke wit h [...] she vomited dark brown material that smelled "fecal". 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 R: Patient understands care advice to go to ED now or call 911. Patient states she cannot leave her child at this time, but will go as soon as she has someone to take over care. Patient strongly advised to go immediately. She advises she will go to [place]. No further needs at this time. Patient instructed to call back with new or worsening symptoms. Reason for Disposition [1] SEVERE pain (e.g., excruciating) AND [2] present > 1 hour Answer Assessment - Initial Assessment Questions 1. LOCATION: "Where does it hurt?" Upper, under breasts, to belly button, mostly on left 2. RADIATION: "Does the pain shoot anywhere else?" (e.g., chest, back) Shoots into right shoulder 3. ONSET: "When did the pain begin?" (e.g., minutes, hours or days ago) 3 days ago, started as dull ache, no unbearable 4. SUDDEN: "Gradual or sudden onset?" Gradually 5. PATTERN "Does the pain come and go, or is it constant?" Constant 6. SEVERITY: "How bad is the pain?" (e.g., Scale 1-10; mild, moderate, or severe) 9 7. RECURRENT SYMPTOM: Have you ever had this type of stomach pain before?" If Yes, ask: "When was the last time?" and "What happened that time?" no 8. AGGRAVATING FACTORS: Does anything seem to cause this pain?" (e.g., foods, stress, alcohol) No, doesn't want to eat, vomiting dark brown, smelled fecal 9. CARDIAC SYMPTOMS: "Do you have any of the following symptoms: chest pain, difficulty breathing, sweating, nausea?" No chest pain, yes difficulty breathing, sweating but no fever, does have nausea 10. OTHER SYMPTOMS: "Do you have any other symptoms?" (e.g., back pain, diarrhea, fever, urination pain, vomiting) No fever, vomited twice, thought it was gas 11. : "Is there any chance you are ?" "When was your last menstrual period?" no Protocols used: Abdominal Pain- [id number] Normal [facility] Abdomen/Pelvis W IV Cont ONL Yon 07-01-2024 Abdomen/Pelvis W IV Cont ONLY Normal [facility] Absolute lymphocyte countOrd ered By: Anita Willis on 07-01-2024 Lymphocytes Auto (Unsp spec) [#/Vol] 0.97 10*3/uL 0.83-4.51 [facility] Absolute neutrophil countOrd ered By: Anita Willis on 07-01-2024 Neutrophils (Bld) [#/Vol] 11.3 10*3/uL High 2.0-7.7 [facility] Anion gap in Serum or Plasma Ordered By: Anita Willis on 07-01-2024 Anion gap [Moles/Vol] 12 mmol/L 5- [facility] Automated lymphocyte count a s percentage of total leukocytesOrdered By: Anita Willis on 07-01-2024 Lymphocytes/100 WBC Auto (Unsp spec) 7.5 % Low 19- [facility] BUN/creatinine ratioOrdered By: Anita Willis on 07-01-2024 Urea nitrogen/Creatinine [Mass ratio] 14.9 mg/mg - [facility] Basophil percentageOrdered B y: Anita Willis on 07-01-2024 Basophils/100 WBC (Bld) 0.4 % 0-1 [facility] Beta HCG ( test) Ql Ordered By: Anita Willis on 07-01-2024 Serum Test, Qualitative Negative [facility] Bilirubin Test strip Ql (U)O rdered By: Anita Willis on 07-01-2024 Bilirubin Ql (U) Negative Negative [facility] Bilirubin, totalOrdered By: Anita Willis on 07-01-2024 Bilirubin [Mass/Vol] 0.66 mg/dL Normal 0.00-1.30 [facility] Comment on above: Performed By: #### L 700.9380, L100.0100, L501.2450, L500.4050 ####[facility] [address] [place], [address] CBC W/Diff, Automatedon 06-13 Absolute Lymph 0.97 X10 3/uL Normal 0.83-4.51 [facility] Comment on above: Performed By: #### L 700.6800, L100.0100, L501.2450, L500.4050 ####[facility] [address] [place], [address] Absolute Neut 11.3 X10 3/uL High 2.0-7.7 [facility] Comment on above: Performed By: #### L 700.6800, L100.0100, L501.2450, L500.4050 ####[facility] [address] [place], [address] Basophils/100 WBC (Bld) 0.4 % Normal 0-1 [facility] Comment on above: Performed By: #### L 700.6800, L100.0100, L501.2450, L500.4050 ####[facility] [address] [place], [address] Eosinophils/100 WBC (Bld) 0.9 % Normal 0-5 [facility] Comment on above: Performed By: #### L 700.6800, L100.0100, L501.2450, L500.4050 ####[facility] [address] [place], [address] Erythrocyte distribution width (RBC) [Ratio] 14.9 % High 11.6-14.6 [facility] Comment on above: Performed By: #### L 700.6800, L100.0100, L501.2450, L500.4050 ####[facility] [address] [place], [address] Hematocrit (Bld) [Volume fraction] 43.5 % Normal 37-47 [facility] Comment on above: Performed By: #### L 700.6800, L100.0100, L501.2450, L500.4050 ####[facility] [address] [place], [address] Hemoglobin (Bld) [Mass/Vol] 14.7 g/dL Normal 12.0-15.0 [facility] Comment on above: Performed By: #### L 700.6800, L100.0100, L501.2450, L500.4050 ####[facility] [address] [place], [address] IG% 0.400 Normal 0.0-0.9 [facility] Comment on above: Result Comment: IG% - Immature Granulocytes (promyelocytes, myelocytes andmetamyelocytes) > 1% indicates that a LEFT SHIFT is Present. Performed By: #### L 700.6800, L100.0100, L501.2450, L500.4050 ####[facility] [address] [place], [address] Lymphocytes/100 WBC (Bld) 7.5 % Low 19-41 [facility] Comment on above: Performed By: #### L 700.6800, L100.0100, L501.2450, L500.4050 ####[facility] [address] [place], [address] MCH (RBC) [Entitic mass] 32.7 pg High 27.0-32.0 [facility] Comment on above: Performed By: #### L 700.6800, L100.0100, L501.2450, L500.4050 ####[facility] [address] [place], [address] MCHC (RBC) [Mass/Vol] 33.8 g/dL Normal 32-36 [facility] Comment on above: Performed By: #### L 700.6800, L100.0100, L501.2450, L500.4050 ####[facility] [address] [place], [address] MCV (RBC) [Entitic vol] 96.7 fL Normal 81-99 [facility] Comment on above: Performed By: #### L 700.6800, L100.0100, L501.2450, L500.4050 ####[facility] [address] [place], [address] Monocytes/100 WBC (Bld) 3.1 % Normal 0-10 [facility] Comment on above: Performed By: #### L 700.6800, L100.0100, L501.2450, L500.4050 ####[facility] [address] [place], [address] Neutrophils/100 WBC (Bld) 87.7 % High 47-70 [facility] Comment on above: Performed By: #### L 700.6800, L100.0100, L501.2450, L500.4050 ####[facility] [address] [place], [address] Nucleated RBC (Bld) [#/Vol] 0 10*3/uL Normal 0-5 [facility] Comment on above: Performed By: #### L 700.6800, L100.0100, L501.2450, L500.4050 ####[facility] [address] [place], [address] Platelet mean volume (Bld) [Entitic vol] 10.7 fL Normal 6.2-12.0 [facility] Comment on above: Performed By: #### L 700.6800, L100.0100, L501.2450, L500.4050 ####[facility] [address] [place], [address] Platelets (Bld) [#/Vol] 239 10*3/uL Normal 150-450 [facility] Comment on above: Performed By: #### L 700.6800, L100.0100, L501.2450, L500.4050 ####[facility] [address] [place], [address] RBC (Bld) [#/Vol] 4.50 10*6/uL Normal 4.2-5.4 [facility] Comment on above: Performed By: #### L 700.6800, L100.0100, L501.2450, L500.4050 ####[facility] [address] [place], [address] RDW SD 53.1 fl High 35.1-43.9 [facility] Comment on above: Performed By: #### L 700.6800, L100.0100, L501.2450, L500.4050 ####[facility] [address] [place], [address] WBC (Bld) [#/Vol] 12.9 10*3/uL High 4.4-11.0 [facility] Comment on above: Performed By: #### L 700.6800, L100.0100, L501.2450, L500.4050 ####[facility] [address] [place], [address] Carbon dioxide, total [Moles /volume] in Central venous bloodOrdered By: Anita Willis on 07-01-2024 CO2 [Moles/Vol] 19.2 mmol/L Low 21.0-32.0 [facility] Comment on above: Performed By: #### L 700.6800, L100.0100, L501.2450, L500.4050 ####[facility] [address] [place], [address] Chloride assayOrdered By: Reyna Willis on 07-01-2024 Chloride [Moles/Vol] 109 mmol/L High 98-108 [facility] Comment on above: Performed By: #### L 700.6800, L100.0100, L501.2450, L500.4050 ####[facility] [address] [place], [address] Comprehensive Metabolic Prof ilon 07-01-2024 ALK PHOS 116 U/L High 35-104 [facility] Comment on above: Performed By: #### L 700.6800, L100.0100, L501.2450, L500.4050 ####[facility] [address] [place], [address] BUN/CRE 14.9 RATIO Normal 10-20 [facility] Comment on above: Performed By: #### L 700.6800, L100.0100, L501.2450, L500.4050 ####[facility] [address] [place], [address] ECRCL 59.61 ml/min Normal 50-250 [facility] Comment on above: Performed By: #### L 700.6800, L100.0100, L501.2450, L500.4050 ####[facility] [address] [place], [address] GAP 12 Normal 5-15 [facility] Comment on above: Performed By: #### L 700.6800, L100.0100, L501.2450, L500.4050 ####[facility] [address] [place], [address] T PROT 6.7 g/dL Normal 5.9-8.4 [facility] Comment on above: Performed By: #### L 700.6800, L100.0100, L501.2450, L500.4050 ####[facility] [address] [place], [address] Comprehensive Metabolic Prof ilOrdered By: Anita Willis on 07-01-2024 AST [Catalytic activity/Vol] 30 U/L Normal <=31 [facility] Comment on above: Performed By: #### L 700.6800, L100.0100, L501.2450, L500.4050 ####[facility] [address] [place], [address] Emergency Department Summary on 07-01-2024 Emergency Department Summary Normal [facility] Eosinophil percentageOrdered By: Anita Willis on 07-01-2024 Eosinophils/100 WBC (Bld) 0.9 % 0-5 [facility] Epithelial cells.squamous LM Ql (Urine sed)Ordered By: Anita Willis on 07-01-2024 Epithelial cells.squamous LM.HPF (Urine sed) [#/Area] 0 /[HPF] 5-10 [facility] Erythrocyte distribution wid th (RBC) [Ratio]Ordered By: Anita Willis on 07-01-2024 Erythrocyte distribution width (RBC) [Entitic vol] 53.1 fL High 35.1-43.9 [facility] Erythrocyte distribution wid th ratioOrdered By: Anita Willis on 07-01-2024 Erythrocyte distribution width (RBC) [Ratio] 14.9 % High 11.6-14.6 [facility] Erythrocyte distribution wid th standard deviationOrdered By: Anita Willis on 07-01-2024 Erythrocyte distribution width (RBC) [Ratio] 53.1 fl High 35.1-43.9 [facility] Estimation of creatinine monico aranceOrdered By: Anita Willis on 07-01-2024 Estimated Creatinine Clearance Calc 59.61 ml/min 50-250 [facility] GFR/1.73 sq M.predicted shweta g non-blacks MDRD (S/P/Bld) [Vol rate/Area]Ordered By: Anita Willis on 07-01-2024 Estimated GFR (MDRD) Non-Af Amer 68 >60 [facility] Comment on above: mL/min/1.73m2 CKD-EP I Creatinine Equation (2020) Glomerular filtration rate ( GFR) estimation/1.73 sq m using serum, plasma, or whole bOrdered By: Anita Willis on 07-01-2024 GFR/1.73 sq M.predicted among non-blacks MDRD (S/P/Bld) [Vol rate/Area] 68 mL/min/{1.73_m2} Normal >60 [facility] Comment on above: mL/min/1.73m2 CKD-EP I Creatinine Equation (2020) Result Comment: mL/m in/1.73m2 CKD-EPI Creatinine Equation (2020) Performed By: #### L 700.6800, L100.0100, L501.2450, L500.4050 ####[facility] [address] [place], [address] Glucose Ql (U)Ordered By: Reyna Willis on 07-01-2024 Urine Glucose (UA) Normal mg/dl Normal [facility] Hematocrit Auto (Bld) [Volum e fraction]Ordered By: Anitaalmita Willis on 07-01-2024 Hematocrit (Bld) [Volume fraction] 43.5 % 37-47 [facility] Hemoglobin measurementOrdere d By: Anita Willis on 07-01-2024 Hemoglobin (Bld) [Mass/Vol] 14.7 g/dL 12.0-15.0 [facility] Immature granulocytes/100 WB C Auto (Bld)Ordered By: Anita Willis on 07-01-2024 Immature granulocytes/100 WBC (Bld) 0.400 % 0.0-0.9 [facility] Comment on above: IG% - Immature Granu locytes (promyelocytes, myelocytes and metamyelocytes) > 1% indicates that a LEFT SHIFT is Present. Ketones Test strip Ql (U)Ord ered By: Anita Willis on 07-01-2024 Ketones Ql (U) Negative Negative [facility] Lipase measurementOrdered By : Anita Willis on 07-01-2024 Lipase [Catalytic activity/Vol] 35 U/L Normal 13-75 [facility] Comment on above: Please note:LIPASE r evised [...] By: #### L 700.6800, L100.0100, L501.2450, L500.4050 ####[facility] [address] [place], [address] Lymphocytes Auto (Unsp spec) [#/Vol]Ordered By: Anita Willsi on 07-01-2024 Lymphocytes (Bld) [#/Vol] 0.97 10*3/uL 0.83-4.51 [facility] Lymphocytes/100 WBC Auto (Un sp spec)Ordered By: Anita Willis on 07-01-2024 Lymphocytes/100 WBC (Bld) 7.5 % Low 19-41 [facility] MCV (mean corpuscular volume ) determinationOrdered By: Anita Willis on 07-01-2024 MCV (RBC) [Entitic vol] 96.7 fL 81-99 [facility] Mean corpuscular hemoglobin (MCH) determinationOrdered By: Anita Willis on 07-01-2024 MCH (RBC) [Entitic mass] 32.7 pg High 27.0-32.0 [facility] Mean corpuscular hemoglobin concentration (MCHC) determinationOrdered By: Anita Willis on 07-01-2024 MCHC (RBC) [Mass/Vol] 33.8 g/dL 32-36 [facility] Mean platelet volume determi nationOrdered By: Anita Willis on 07-01-2024 Platelet mean volume (Bld) [Entitic vol] 10.7 fL 6.2-12.0 [facility] Microscopic analysis of urin e for red blood cells (RBC)Ordered By: Anita Willis on 07-01-2024 Microscopic analysis of urine for red blood cells (RBC) 0-5 SEEN /hpf 0-5 [facility] Urine RBC 0-5 SEEN /hpf 0-5 [facility] Monocyte percentageOrdered B y: Anita Willis on 07-01-2024 Monocytes/100 WBC (Bld) 3.1 % 0-10 [facility] Mucus LM Ql (Urine sed)Order ed By: Anita Willis on 07-01-2024 Mucus Ql (Urine sed) 0 SEEN /hpf [facility] Neutrophil percentageOrdered By: Anita Willis on 07-01-2024 Neutrophils/100 WBC (Bld) 87.7 % High 47-70 [facility] Nitrite Test strip Ql (U)Ord ered By: Anita Willis on 07-01-2024 Nitrite Ql (U) Negative Negative [facility] No Panel InformationOrdered By: Anita Willis on 07-01-2024 30 U/L <32 [facility] Nucleated red blood cell per centageOrdered By: Anita Willis on 07-01-2024 Nucleated RBC/100 WBC (Bld) [Ratio] 0 % 0-5 [facility] Platelet countOrdered By: Reyna Willis on 07-01-2024 Platelets (Bld) [#/Vol] 239 10*3/uL 150-450 [facility] Potassium measurement (mass/ volume)Ordered By: Anita Willis on 07-01-2024 Potassium (Unsp spec) [Mass/Vol] 4.0 mmol/L 3.3-5.1 [facility] Potassium [Moles/Vol] 4.0 mmol/L Normal 3.3-5.1 [facility] Comment on above: Performed By: #### L 700.6800, L100.0100, L501.2450, L500.4050 ####[facility] [address] [place], [place], [address] ,Serum,hCG Quali.on 07-01-2024 HCG, SERUM QUAL Negative Normal [facility] Comment on above: Performed By: #### L 700.6800, L100.0100, L501.2450, L500.4050 ####[facility] [address] [place], [place], [address] Protein Test strip Ql (U)Ord ered By: Anita Willis on 07-01-2024 Protein Ql (U) 30 mg/dl High Negative [facility] RBC Auto (Bld) [#/Vol]Ordere d By: Anita Willis on 07-01-2024 RBC (Bld) [#/Vol] 4.50 10*6/uL 4.2-5.4 [facility] Serum beta-hCG test, qualita tiveOrdered By: Anita Willis on 07-01-2024 Beta HCG ( test) Ql Negative [facility] Serum creatinine measurement (mass/volume)Ordered By: Anita Willis on 07-01-2024 Creatinine [Mass/Vol] 1.04 mg/dL Normal 0.70-1.20 [facility] Comment on above: Performed By: #### L 700.6800, L100.0100, L501.2450, L500.4050 ####[facility] [address] [place], [address] Serum globulin measurementOr dered By: Anita Willis on 07-01-2024 Globulin (S) [Mass/Vol] 2.5 g/dL Normal 2.2-4.2 [facility] Comment on above: Performed By: #### L 700.6800, L100.0100, L501.2450, L500.4050 ####[facility] [address] [place], [address] Serum glucose measurement (m ass/volume)Ordered By: Anita Willis on 07-01-2024 Glucose [Mass/Vol] 103 mg/dL High 70-99 [facility] Comment on above: Performed By: #### L 700.6800, L100.0100, L501.2450, L500.4050 ####[facility] [address] [place], [address] Serum or plasma alanine hair otransferase (ALT) measurementOrdered By: Anita Willis on 07-01-2024 ALT [Catalytic activity/Vol] 27 U/L Normal <=34 [facility] Comment on above: Performed By: #### L 700.6800, L100.0100, L501.2450, L500.4050 ####[facility] [address] [place], [address] Serum or plasma albumin leslie urement (mass/volume)Ordered By: Anita Willis on 07-01-2024 Albumin [Mass/Vol] 4.2 g/dL Normal 3.5-5.0 [facility] Comment on above: Performed By: #### L 700.6800, L100.0100, L501.2450, L500.4050 ####[facility] [address] [place], [address] Serum or plasma albumin/glob ulin mass ratioOrdered By: Anita Willis on 07-01-2024 Albumin/Globulin [Mass ratio] 1.7 {ratio} Normal 0.9-2.4 [facility] Comment on above: Performed By: #### L 700.6800, L100.0100, L501.2450, L500.4050 ####[facility] [address] [place], [address] Serum or plasma alkaline delfin sphatase measurementOrdered By: Anita Willis on 07-01-2024 ALP [Catalytic activity/Vol] 116 U/L High 35-104 [facility] Serum or plasma calcium leslie urement (mass/volume)Ordered By: Anita Willis on 07-01-2024 Calcium [Mass/Vol] 9.0 mg/dL Normal 7.6-11.0 [facility] Comment on above: Performed By: #### L 700.6800, L100.0100, L501.2450, L500.4050 ####[facility] [address] [place], [address] Serum or plasma urea nitroge n measurement (mass/volume)Ordered By: Anita Willis on 07-01-2024 Urea nitrogen [Mass/Vol] 16 mg/dL Normal 4-19 [facility] Comment on above: Performed By: #### L 700.6800, L100.0100, L501.2450, L500.4050 ####[facility] [address] [place], [address] Sodium levelOrdered By: Dakotah Willis on 07-01-2024 Sodium [Moles/Vol] 139 mmol/L Normal 133-145 [facility] Comment on above: Performed By: #### L 700.6800, L100.0100, L501.2450, L500.4050 ####[facility] [address] [place], [address] Squamous epithelial cells de tection in urine sediment by light microscopyOrdered By: Anita Willis on 07-01-2024 Epithelial cells.squamous LM Ql (Urine sed) 0-5 SEEN /hpf 5-10 [facility] Total proteinOrdered By: Florin Willis on 07-01-2024 Protein [Mass/Vol] 6.7 g/dL 5.9-8.4 [facility] Urinalysis, Completeon 07-01 BACTERIA 2+ /hpf Normal None Seen [facility] Comment on above: Order Comment: HARITHA CTOR TO SPECIFY Performed By: #### L 400.0001 ####[facility] [address] [place], [address] EPI,SQUAMOUS 0-5 SEEN Normal 5-10 [facility] Comment on above: Order Comment: HARITHA CTOR TO SPECIFY Performed By: #### L 400.0001 ####[facility] [address] [place], [address] RBC 0-5 SEEN Normal 0-5 [facility] Comment on above: Order Comment: HARITHA CTOR TO SPECIFY Performed By: #### L 400.0001 ####[facility] [address] [place], [address] Mucus Ql (Urine sed) 0 SEEN Normal [facility] Comment on above: Order Comment: HARITHA CTOR TO SPECIFY Performed By: #### L 400.0001 ####[facility] [address] [place], [address] WBC 0 SEEN Normal 0-5 [facility] Comment on above: Order Comment: HARITHA CTOR TO SPECIFY Performed By: #### L 400.0001 ####[facility] [address] [place], [address] Urine blood detectionOrdered By: Anita Willis on 07-01-2024 Urine Occult Blood 50 /ul High Negative [facility] Urine clarityOrdered By: Florin Willis on 07-01-2024 Clarity (U) Clear Clear [facility] Urine color determinationOrd ered By: Anita Willis on 07-01-2024 Color (U) Yellow Yellow [facility] Urine glucose detectionOrder ed By: Anita Willis on 07-01-2024 Glucose Ql (U) Normal mg/dl Normal [facility] Urine leukocyte esterase det ection by dipstickOrdered By: Anita Willis on 07-01-2024 Leukocyte esterase Test strip Ql (U) Negative Negative [facility] Urine pHOrdered By: Parag Willis on 07-01-2024 pH (U) 6.0 [pH] 5.0 - 8.0 [facility] Urine sediment bacteria coun t by microscopy (number/high power field)Ordered By: Anita Willis on 07-01-2024 Bacteria LM.HPF (Urine sed) [#/Area] 2 /[HPF] None Seen [facility] Urine specific gravity measu rementOrdered By: Anita Willis on 07-01-2024 Specific gravity (U) [Rel density] 1.010 1.002-1.03 0 [facility] Urine urobilinogen measureme ntOrdered By: Anita Willis on 07-01-2024 Urobilinogen Ql (U) Normal mg/dl Normal [facility] Urobilinogen Ql (U)Ordered B y: Anita Willis on 07-01-2024 Urine Urobilinogen Normal mg/dl Normal [facility] White blood cell (WBC) count Ordered By: Anita Willis on 07-01-2024 WBC (Bld) [#/Vol] 12.9 10*3/uL High 4.4-11.0 [facility] White blood cell countOrdere d By: Anita Willis on 07-01-2024 Urine WBC 0 SEEN /hpf 0-5 [facility] White blood cell count 0 SEEN /hpf 0-5 [facility] CBC panel Auto (Bld)on 05-21 Erythrocyte distribution width (RBC) [Ratio] 14.0 % Normal 11.5-15.0 [facility] Comment on above: Order Comment: Speci men Type: BLOOD SPECIMEN Ordering Facility: [facility] Address: [address] [place] [address] Performed By: #### 5 8410-2 #### [facility] CLIA [id number] [address] [facility] Hematocrit (Bld) [Volume fraction] 49.4 % High 36.0-46.0 [facility] Comment on above: Order Comment: Speci men Type: BLOOD SPECIMEN Ordering Facility: [facility] Address: [address] [place] [address] Performed By: #### 5 8410-2 #### [facility] CLIA [id number] [address] OF [place] Hemoglobin (Bld) [Mass/Vol] 16.5 g/dL High 11.5-15.5 [facility] Comment on above: Order Comment: Speci men Type: BLOOD SPECIMEN Ordering Facility: [facility] Address: [address] [place] [address] Performed By: #### 5 8410-2 #### [facility] CLIA [id number] [address] OF [facility] MCH (RBC) [Entitic mass] 32.0 pg Normal 26.0-34.0 [facility] Comment on above: Order Comment: Speci men Type: BLOOD SPECIMEN Ordering Facility: [facility] Address: [address] [place] [address] Performed By: #### 5 8410-2 #### [facility] CLIA [id number] [address] MCHC (RBC) [Mass/Vol] 33.4 g/dL Normal 30.5-36.0 [facility] Comment on above: Order Comment: Speci men Type: BLOOD SPECIMEN Ordering Facility: [facility] Address: [address] [place] [address] Performed By: #### 5 8410-2 #### [facility] CLIA [id number] [address] [place] [address] [place] MCV (RBC) [Entitic vol] 95.7 fL Normal 80.0-100.0 [facility] Comment on above: Order Comment: Speci men Type: BLOOD SPECIMEN Ordering Facility: [facility] Address: [address] [place] [address] Performed By: #### 5 8410-2 #### [facility] CLIA [id number] [address] [place] [address] [place] Nucleated RBC (Bld) [#/Vol] 10*3/uL Normal <0.01 [facility] Comment on above: Order Comment: Speci men Type: BLOOD SPECIMEN Ordering Facility: [facility] Address: [address] [place] [address] Performed By: #### 5 8410-2 #### [facility] CLIA [id number] [address] [place] [address] [place] Platelet mean volume (Bld) [Entitic vol] 10.0 fL Normal 9.0-12.7 [facility] Comment on above: Order Comment: Speci men Type: BLOOD SPECIMEN Ordering Facility: [facility] Address: [address] [place] [address] Performed By: #### 5 8410-2 #### [facility] CLIA [id number] [address] [place] [address] [facility] [place] Platelets (Bld) [#/Vol] 288 10*3/uL Normal 150-400 [facility] Comment on above: Order Comment: Speci men Type: BLOOD SPECIMEN Ordering Facility: [facility] Address: [address] [place] [address] Performed By: #### 5 8410-2 #### [facility] CLIA [id number] [address] [place] [address] [place] RBC (Bld) [#/Vol] 5.16 10*6/uL Normal 3.90-5.20 [facility] Comment on above: Order Comment: Speci men Type: BLOOD SPECIMEN Ordering Facility: [facility] Address: [address] [place] [address], [place] [address] Performed By: #### 5 8410-2 #### [facility] CLIA [id number] [address] [place] [address] [place] WBC (Bld) [#/Vol] 12.02 10*3/uL High 3.70-11.00 [facility] Comment on above: Order Comment: Speci men Type: BLOOD SPECIMEN Ordering Facility: [facility] Address: [facility] [place] [id number] Performed By: #### 5 8410-2 #### [facility] CLIA [id number] [address] [place] [address] [place] CNCOon 05-21-2024 CNCO Letter Text Normal [facility] CNDSon 05-21-2024 CNDS HNO ID: [id number] Author: DEX WILKINSON MD Service: Family Practice Author Type: Physician [...] MEDICAL TEAM: [facility] Doctor: Dex Wilkinson MD Primary Care Provider: Dex Wilkinson MD My Medical Team Members: Treatment Team: Attending Provider: Dex Wilkinson MD Nurse Practitioner: Josie Ovalles APRN.SLICE PLUG CUTTER OPERATOR Consulting: Luis Miguel Vuong MD MY CONDITION [...] Patient/Parents to call for appointment?: Yes Dex Wilkinson MD [phone] [facility] [address] [place] [address] PCP Requested Referral GENERAL: alert, no distress, [...] grossly intact., Treatment Team: Nurse Practitioner: Josie Ovalles APRN.SLICE PLUG CUTTER OPERATOR FOLLOW-UP APPOINTMENTS ALREADY SCHEDULED WITH A [facility] PROVIDER: No future appointments. ALLERGIES Allergen Reactions Prozac [Fluoxetine * Other: See Comments suicidal ideations Ativan [Lorazepam] Vomiting Azithromycin Intolerance [place] Anaphylaxis [place] Anaphylaxis pickles Fish Anaphylaxis Levofloxacin In D5w [...] Your Medications These medications were sent to [facility] [place] [address] - [address] [place] [address] - [id number] [place] [address] cephALEXin 500 mg capsule oxyCODONE IR 5 mg immediate release tablet Additional Information Additional Health Information I Need to Know After I Leave the Hospital No additional instructions. The patient's risk for 30-day readmission is determined using the following contributing factors: Predictive Model Detai (more content not included)... Normal [facility] Comprehensive metabolic 2000 panelon 05-21-2024 Albumin [Mass/Vol] 4.0 g/dL Normal 3.9-4.9 [facility] Comment on above: Order Comment: David horton Type: BLOOD SPECIMENOrdering Facility: [facility] Address: [address] [place] [address] Performed By: #### 2 4323-8 ####[facility] [id number] [place] [address] [place] ALP [Catalytic activity/Vol] 223 U/L High 34-123 [facility] Comment on above: Order Comment: Kianai sol Type: BLOOD SPECIMENOrdering Facility: [facility] Address: [address] [place] [address] Performed By: #### 2 4323-8 ####[facility] [id number] [place] [address] [place] ALT [Catalytic activity/Vol] 113 U/L High 7-38 [facility] Comment on above: Order Comment: Speci men Type: BLOOD SPECIMENOrdering Facility: [facility] Address: [address] [place] [address] Performed By: #### 2 4323-8 ####[facility] [id number] [place] [address] [place] Anion gap [Moles/Vol] 17 mmol/L High 8-15 [facility] Comment on above: Order Comment: Speci men Type: BLOOD SPECIMENOrdering Facility: [facility] Address: [address] [place] [address] Performed By: #### 2 4323-8 ####[facility] [id number] [place] [address] [place] AST [Catalytic activity/Vol] Normal [facility] Comment on above: Order Comment: Speci men Type: BLOOD SPECIMENOrdering Facility: [facility] Address: [address] [place] [address] Result Comment: Unab le to assay due to interference from hemolysis. Suggest reorder as clinically indicated. Performed By: #### 2 4323-8 ####[facility] [id number] [place] [address] [place] Bilirubin [Mass/Vol] 0.4 mg/dL Normal 0.2-1.3 [facility] Comment on above: Order Comment: Speci men Type: BLOOD SPECIMENOrdering Facility: [facility] Address: [address] [place] [address] Performed By: #### 2 4323-8 ####[facility] [id number] [place] [address] [place] Calcium [Mass/Vol] 9.8 mg/dL Normal 8.5-10.2 [facility] Comment on above: Order Comment: Speci men Type: BLOOD SPECIMENOrdering Facility: [facility] Address: [address] [place] [address] Performed By: #### 2 4323-8 ####[facility] [id number] [place] [address] [place] Chloride [Moles/Vol] 95 mmol/L Low 98-107 [facility] Comment on above: Order Comment: Speci men Type: BLOOD SPECIMENOrdering Facility: [facility] Address: [address] [place] [address] Performed By: #### 2 4323-8 ####[facility] [id number] [place] [id number] [place] CO2 [Moles/Vol] 22 mmol/L Normal 22-30 [facility] Comment on above: Order Comment: Speci men Type: BLOOD SPECIMENOrdering Facility: [facility] Address: [address] [place] [address] Performed By: #### 2 4323-8 ####[facility] [id number] [address] [facility] Creatinine [Mass/Vol] 0.94 mg/dL Normal 0.58-0.96 [facility] Comment on above: Order Comment: David horton Type: BLOOD SPECIMENOrdering Facility: [facility] Address: [address] [place] [address] Performed By: #### 2 4323-8 ####[facility] [id number] [address] Creatinine and Glomerular filtration rate.predicted panel (S/P/Bld) 77 mL/min/1.73m??? Normal >=60 [facility] Comment on above: Order Comment: David horton Type: BLOOD SPECIMENOrdering Facility: [facility] Address: [address] [place] [address] Result Comment: Sandie mated Glomerular Filtration Rate [...] Performed By: #### 2 4323-8 ####[facility]ORATORYCLIA [id number] [place] [id number] [facility] Glucose [Mass/Vol] 82 mg/dL Normal 74-99 [facility] Comment on above: Order Comment: David horton Type: BLOOD SPECIMENOrdering Facility: [facility] Address: [address] [place] [address] Result Comment: The [place] Diabetes Association (ADA) provides guidance for cutoff [...] Standards of Medical Care in Diabetes 2016, [place] [employer]. Diabetes Care. 2016.39(Suppl 1). Performed By: #### 2 4323-8 ####[facility] LABORATORYCLIA [id number] [place] [address] [place] Potassium [Moles/Vol] 4.7 mmol/L Normal 3.7-5.1 [facility] Comment on above: Order Comment: Speci men Type: BLOOD SPECIMENOrdering Facility: [facility] Address: [address] [place] [address] Performed By: #### 2 4323-8 ####[facility]ORATORYCLIA [id number] [place] [address] [place] Protein [Mass/Vol] 7.0 g/dL Normal 6.3-8.0 [facility] Comment on above: Order Comment: David horton Type: BLOOD SPECIMENOrdering Facility: [facility] Address: [address] [place] [address] Performed By: #### 2 4323-8 ####[facility]ORATORYCLIA [id number] [place] [address] [place] Sodium [Moles/Vol] 134 mmol/L Low 136-144 [facility] Comment on above: Order Comment: Kianai men Type: BLOOD SPECIMENOrdering Facility: [facility] Address: [address] [place] [address] Performed By: #### 2 4323-8 ####[facility] LABORATORYCLIA [id number] [place] [address] [place] Urea nitrogen [Mass/Vol] 22 mg/dL High 7-21 [facility] Comment on above: Order Comment: Spectian horton Type: BLOOD SPECIMENOrdering Facility: [facility] Address: [address] [place], [place] [address] Performed By: #### 2 4323-8 ####[facility] LABORATORYCLIA [id number] [place] [address] [place] ALLIED HEALTHon 05-20-2024 ALLIED HEALTH HNO ID: [id number] Author: BONITA GROSS RDMS Service: ? Author Type: Entry Rep Type: Allied Health Filed: 05/20/2024 14:34 Note [...] PATIENT PRESENTS WITH AN IMPLANTABLE OR ATTACHED QUALITY CONTROL ANALYST: No RADIOLOGY DEPARTMENT: Ultrasound PERIPHERAL IV DATA: Not applicable SIGNED BY: Bonita Gross RDMS May 20, 2024 2:34 PM Normal [facility] CBC panel Auto (Bld)on 05-20 Erythrocyte distribution width (RBC) [Ratio] 13.8 % Normal 11.5-15.0 [facility] Comment on above: Order Comment: David horton Type: BLOOD SPECIMENOrdering Facility: [facility] Address: [address] [place] [address] Performed By: #### 5 8410-2 ####[facility] LABORATORYCLIA [id number] [place] [id number] [place] Hematocrit (Bld) [Volume fraction] 49.3 % High 36.0-46.0 [facility] Comment on above: Order Comment: David horton Type: BLOOD SPECIMENOrdering Facility: [facility] Address: [address] [place] [address] Performed By: #### 5 8410-2 ####[facility]ORATORYCLIA [id number] [address] Hemoglobin (Bld) [Mass/Vol] 16.3 g/dL High 11.5-15.5 [facility] Comment on above: Order Comment: Speci men Type: BLOOD SPECIMENOrdering Facility: [facility] Address: [address] [place] [address] Performed By: #### 5 8410-2 ####[facility]ORATORYCLIA [id number] [address] MCH (RBC) [Entitic mass] 31.3 pg Normal 26.0-34.0 [facility] Comment on above: Order Comment: Speci men Type: BLOOD SPECIMENOrdering Facility: [facility] Address: [address] [place] [address] Performed By: #### 5 8410-2 ####[facility] LABORATORYCLIA [id number] [address] MCHC (RBC) [Mass/Vol] 33.1 g/dL Normal 30.5-36.0 [facility] Comment on above: Order Comment: Speci men Type: BLOOD SPECIMENOrdering Facility: [facility] Address: [address] [place] [address] Performed By: #### 5 8410-2 ####[facility]ORATORYCLIA [id number] [address] MCV (RBC) [Entitic vol] 94.8 fL Normal 80.0-100.0 [facility] Comment on above: Order Comment: Speci men Type: BLOOD SPECIMENOrdering Facility: [facility] Address: [address] [place] [address] Performed By: #### 5 8410-2 ####[facility]ORATORYCLIA [id number] [address] Nucleated RBC (Bld) [#/Vol] 10*3/uL Normal <0.01 [facility] Comment on above: Order Comment: Speci men Type: BLOOD SPECIMENOrdering Facility: [facility] Address: [address] [place] [address] Performed By: #### 5 8410-2 ####[facility] LABORATORYCLIA [id number] [place] [id number] [place] Platelet mean volume (Bld) [Entitic vol] 9.8 fL Normal 9.0-12.7 [facility] Comment on above: Order Comment: Speci men Type: BLOOD SPECIMENOrdering Facility: [facility] Address: [address] [place] [address] Performed By: #### 5 8410-2 ####[facility] LABORATORYCLIA [id number] [place] [address] [place] [facility] [place] Platelets (Bld) [#/Vol] 326 10*3/uL Normal 150-400 [facility] Comment on above: Order Comment: Speci men Type: BLOOD SPECIMENOrdering Facility: [facility] Address: [address] [place] [address] Performed By: #### 5 8410-2 ####[facility] LABORATORYCLIA [id number] [place] [address] [place] RBC (Bld) [#/Vol] 5.20 10*6/uL Normal 3.90-5.20 [facility] Comment on above: Order Comment: Speci men Type: BLOOD SPECIMENOrdering Facility: [facility] Address: [address] [place] [address] Performed By: #### 5 8410-2 ####[facility] LABORATORYCLIA [id number] [place] [id number] [place] WBC (Bld) [#/Vol] 21.90 10*3/uL High 3.70-11.00 [facility] Comment on above: Order Comment: Speci men Type: BLOOD SPECIMENOrdering Facility: [facility] Address: [address] [place] [address] Performed By: #### 5 8410-2 ####[facility] LABORATORYCLIA [id number] [place] [id number] [facility] CONSULT PROGon 05-20-2024 CONSULT PROG HNO ID: [id number] Author: TATI VANG RPh Service: Pharmacy Author [...] have any questions, please contact pharmacy at [phone]. Age: [age] year old Allergies: ALLERGIES Allergen Reactions Prozac [Fluoxetine * Other: See Comments suicidal ideations Ativan [Lorazepam] Vomiting Azithromycin Intolerance [place] Anaphylaxis [place] Anaphylaxis pickles Fish Anaphylaxis Levofloxacin In D5w [...] Readings: Date: Ht: 05/15/2024 160 cm (5' 3") CrCl: 66 mL/min Temp (24hrs), Av.8 ?C [...] Date/Time Value 05/17/2024 1240 14.7 Tati Vang [facility] Normal [facility] Comprehensive metabolic 2000 panelon 05-20-2024 Albumin [Mass/Vol] 4.2 g/dL Normal 3.9-4.9 [facility] Comment on above: Order Comment: Speci men Type: BLOOD SPECIMENOrdering Facility: [facility] Address: [address] [place] [address] Performed By: #### 2 4323-8, 3040-3 ####[facility]ORATORYCLIA [id number] [address] ALP [Catalytic activity/Vol] 228 U/L High 34-123 [facility] Comment on above: Order Comment: Speci men Type: BLOOD SPECIMENOrdering Facility: [facility] Address: [address] [place] [address] Performed By: #### 2 4323-8, 3040-3 ####[facility] LABORATORYCLIA [id number] [place] [id number] [facility] ALT [Catalytic activity/Vol] 50 U/L High 7-38 [facility] Comment on above: Order Comment: Speci men Type: BLOOD SPECIMENOrdering Facility: [facility] Address: [address] [place] [address] Performed By: #### 2 4323-8, 3040-3 ####[facility]ORATORYCLIA [id number] [address] [place] Anion gap [Moles/Vol] 14 mmol/L Normal 8-15 [facility] Comment on above: Order Comment: Speci men Type: BLOOD SPECIMENOrdering Facility: [facility] Address: [address] [place] [address] Performed By: #### 2 4323-8, 3040-3 ####[facility]ORATORYCLIA [id number] [address] [place] AST [Catalytic activity/Vol] 34 U/L Normal 13-35 [facility] Comment on above: Order Comment: Speci men Type: BLOOD SPECIMENOrdering Facility: [facility] Address: [address] [place] [address] Performed By: #### 2 4323-8, 3039-3 ####[facility]ORATORYCLIA [id number] [address] [place] Bilirubin [Mass/Vol] 0.4 mg/dL Normal 0.2-1.3 [facility] Comment on above: Order Comment: Speci men Type: BLOOD SPECIMENOrdering Facility: [facility] Address: [address] [place] [address] Performed By: #### 2 4323-8, 3039-3 ####[facility] LABORATORYCLIA [id number] [address] [place] Calcium [Mass/Vol] 10.3 mg/dL High 8.5-10.2 [facility] Comment on above: Order Comment: Speci men Type: BLOOD SPECIMENOrdering Facility: [facility] Address: [address] [place] [address] Performed By: #### 2 4323-8, 0-3 ####[facility]ORATORYCLIA [id number] [place] [address] [place] Chloride [Moles/Vol] 94 mmol/L Low 98-107 [facility] Comment on above: Order Comment: Speci men Type: BLOOD SPECIMENOrdering Facility: [facility] Address: [address] [place] [address] Performed By: #### 2 4323-8, 0-3 ####[facility] LABORATORYCLIA [id number] [address] STATES OF [facility] CO2 [Moles/Vol] 25 mmol/L Normal 22-30 [facility] Comment on above: Order Comment: Speci men Type: BLOOD SPECIMENOrdering Facility: [facility] Address: [address] [place] [address] Performed By: #### 2 4323-8, 3040-3 ####[facility]ORATORYCLIA [id number] [address] STATES [facility] Creatinine [Mass/Vol] 0.90 mg/dL Normal 0.58-0.96 [facility] Comment on above: Order Comment: Speci men Type: BLOOD SPECIMENOrdering Facility: [facility] Address: [address] [place] [address] Performed By: #### 2 4323-8, 3040-3 ####[facility]ORATORYCLIA [id number] [address] Creatinine and Glomerular filtration rate.predicted panel (S/P/Bld) 81 mL/min/1.73m??? Normal >=60 [facility] Comment on above: Order Comment: Speci men Type: BLOOD SPECIMENOrdering Facility: [facility] Address: [address] [place] [address] Result Comment: Sandie mated Glomerular Filtration Rate [...] By: #### 2 4323-8, 3040-3 ####[facility]ORATORYCLIA [id number] [address] Glucose [Mass/Vol] 98 mg/dL Normal 74-99 [facility] Comment on above: Order Comment: Speci men Type: BLOOD SPECIMENOrdering Facility: [facility] Address: [address] [place] [address] Result Comment: The [place] Diabetes [employer] (ADA) provides guidance for cutoff [...] Standards of Medical Care in Diabetes 2016, [place] [employer]. Diabetes Care. 2016.39(Suppl 1). Performed By: #### 2 4323-8, 3040-3 ####[facility]ORATORYCLIA [id number] [place] [address] [place] Potassium [Moles/Vol] 4.4 mmol/L Normal 3.7-5.1 [facility] Comment on above: Order Comment: David horton Type: BLOOD SPECIMENOrdering Facility: [facility] Address: [address] [place] [address] Performed By: #### 2 4323-8, 0-3 ####[facility] LABORATORYCLIA [id number] [place] [address] [place] Protein [Mass/Vol] 7.4 g/dL Normal 6.3-8.0 [facility] Comment on above: Order Comment: David horton Type: BLOOD SPECIMENOrdering Facility: [facility] Address: [address] [place] [address] Performed By: #### 2 4323-8, 0-3 ####[facility]ORATORYCLIA [id number] [place] [address] [place] Sodium [Moles/Vol] 133 mmol/L Low 136-144 [facility] Comment on above: Order Comment: David men Type: BLOOD SPECIMENOrdering Facility: [facility] Address: [address] [place] [address] Performed By: #### 2 4323-8, 3040-3 ####[facility] LABORATORYCLIA [id number] [place] [address] [place] Urea nitrogen [Mass/Vol] 18 mg/dL Normal 7-21 [facility] Comment on above: Order Comment: Speci men Type: BLOOD SPECIMENOrdering Facility: [facility] Address: [facility] [place] [id number] Performed By: #### 2 4323-8, 3040-3 ####[facility] LABORATORYCLIA [id number] [place] [id number] [facility] [place] Lipase SerPl-cCncon 05-21-19 25 Lipase [Catalytic activity/Vol] 22 U/L Normal 16-61 [facility] Comment on above: Order Comment: Speci men Type: BLOOD SPECIMENOrdering Facility: [facility] Address: [place] [place] [id number] Performed By: #### 2 4323-8, 3040-3 ####[facility] LABORATORYCLIA [id number] [place] [address] [place] US ABD RIGHT UPPER [...] prominence. This is sometimes seen after cholecystectomy. Animal Keeper Head: KIM Transcribe Date/Time: May 20 2024 2:35P Dictated by : KASIE GREGORY MD This examination was interpreted and the report reviewed and electronically signed by: KASIE GREGORY MD on May 20 2024 2:36PM EST [id number] [facility] ALLIED HEALTHon 05-19-2024 ALLIED HEALTH HNO ID: [id number] Author: ABELARDO LEES CT Service: Radiology Author Type: Technologist Type: [...] PATIENT PRESENTS WITH AN IMPLANTABLE OR ATTACHED QUALITY CONTROL ANALYST: No RADIOLOGY DEPARTMENT: General X-ray: Exam(s) Completed: Chest X-Ray PERIPHERAL IV DATA: Not applicable SIGNED BY: MIRACLE Gomez May 19, 2024 9:[address] [facility] CBC panel Auto (Bld)on 05-19 Erythrocyte distribution width (RBC) [Ratio] 14.2 % Normal 11.5-15.0 [facility] Comment on above: Order Comment: David horton Type: BLOOD SPECIMEN [facility] Address: [address] [place] [address] Performed By: #### 5 8410-2 #### [facility] CLIA [id number] [address] [place] [address] [place] Hematocrit (Bld) [Volume fraction] 52.0 % High 36.0-46.0 [facility] Comment on above: Order Comment: David horton Type: BLOOD SPECIMEN [facility]: [facility] Address: [address] [place] [address] Performed By: #### 5 8410-2 #### [facility] CLIA [id number] [address] [place] [address] [place] Hemoglobin (Bld) [Mass/Vol] 16.6 g/dL High 11.5-15.5 [facility] Comment on above: Order Comment: Speci men Type: BLOOD SPECIMEN [facility]ing Facility: [facility] Address: [address] [place] [address] Performed By: #### 5 8410-2 #### [facility] CLIA [id number] [address] MCH (RBC) [Entitic mass] 31.3 pg Normal 26.0-34.0 [facility] Comment on above: Order Comment: Speci men Type: BLOOD SPECIMEN [facility]: [facility] Address: [address] [place] [address] Performed By: #### 5 8410-2 #### [facility] CLIA [id number] [address] MCHC (RBC) [Mass/Vol] 31.9 g/dL Normal 30.5-36.0 [facility] Comment on above: Order Comment: Speci men Type: BLOOD SPECIMEN [facility]ing [facility]: [facility] Address: [address] [place] [address] Performed By: #### 5 8410-2 #### [facility] CLIA [id number] [address] MCV (RBC) [Entitic vol] 97.9 fL Normal 80.0-100.0 [facility] Comment on above: Order Comment: Speci men Type: BLOOD SPECIMEN [facility]ing [facility] Address: [address] [place] [address] Performed By: #### 5 8410-2 #### [facility] CLIA [id number] [address] Nucleated RBC (Bld) [#/Vol] 10*3/uL Normal <0.01 [facility] Comment on above: Order Comment: Speci men Type: BLOOD SPECIMEN [facility]ing Facility: [facility] Address: [address] [place] [address] Performed By: #### 5 8410-2 #### [facility] CLIA [id number] [address] Platelet mean volume (Bld) [Entitic vol] 10.3 fL Normal 9.0-12.7 [facility] Comment on above: Order Comment: Speci men Type: BLOOD SPECIMEN [facility]ing [facility]: [facility] Address: [address] [place] [address] Performed By: #### 5 8410-2 #### [facility] CLIA [id number] [address] Platelets (Bld) [#/Vol] 346 10*3/uL Normal 150-400 [facility] Comment on above: Order Comment: Speci men Type: BLOOD SPECIMEN [facility]ing Facility: [facility] Address: [address] [place] [address] Performed By: #### 5 8410-2 #### [facility] CLIA [id number] [address] OF [facility] RBC (Bld) [#/Vol] 5.31 10*6/uL High 3.90-5.20 [facility] Comment on above: Order Comment: Speci men Type: BLOOD SPECIMEN [facility]ing Facility: [facility] Address: [address] [place] [address] Performed By: #### 5 8410-2 #### [facility] CLIA [id number] [address] WBC (Bld) [#/Vol] 10.65 10*3/uL Normal 3.70-11.00 [facility] Comment on above: Order Comment: Speci men Type: BLOOD SPECIMEN [facility]ing [facility] Address: [address] [place] [address] Performed By: #### 5 8410-2 #### [facility] CLIA [id number] [address] CONSULTon 05-19-2024 CONSULT HNO ID: [id number] Author: LUIS MIGUEL VUONG MD Service: Cardiovascular Disease Author Type: Physician Type: Consults Filed: 05/19/2024 16:57 Note Text: CONSULT: CARDIOLOGY SERVICE PATIENT NAME: Michelle Mitchell DATE of SERVICE: 05/19/2024 TIME of SERVICE: 4:43 PM REASON FOR CONSULT: Chest pain REQUESTING PHYSICIAN: PRIMARY CARE PHYSICIAN: Dex Wilkinson MD Ms. Mitchell is a 43 year [...] TRANSVENOUS PACEMAKER INSERTION Apr. 2006 ICD implant, [facility] ANESTHESIA TUBAL LIGATION/TRANSECTION APPENDECTOMY 05/05/2014 , [...] 40 mg (more content not included)... Normal [facility] Comprehensive metabolic 2000 panelon 05-19-2024 Albumin [Mass/Vol] 4.5 g/dL Normal 3.9-4.9 [facility] Comment on above: Order Comment: Speci men Type: BLOOD SPECIMEN [facility]ing [facility]: [facility] Address: [address] [place] [address] Performed By: #### 5 8410-2 #### [facility] CLIA [id number] [address] ALP [Catalytic activity/Vol] 277 U/L High 34-123 [facility] Comment on above: Order Comment: Speci men Type: BLOOD SPECIMEN [facility]ing Facility: [facility] Address: [address] [place] [address] Performed By: #### 5 8410-2 #### [facility] CLIA [id number] [address] ALT [Catalytic activity/Vol] 63 U/L High 7-38 [facility] Comment on above: Order Comment: Speci men Type: BLOOD SPECIMEN [facility]ing Facility: [facility] Address: [address] [place] [address] Performed By: #### 5 8410-2 #### [facility] CLIA [id number] [address] Anion gap [Moles/Vol] 11 mmol/L Normal 8-15 [facility] Comment on above: Order Comment: Speci men Type: BLOOD SPECIMEN [facility]ing Facility: [facility] Address: [address] [place] [address] Performed By: #### 5 8410-2 #### [facility] CLIA [id number] [address] AST [Catalytic activity/Vol] 59 U/L High 13-35 [facility] Comment on above: Order Comment: Speci men Type: BLOOD SPECIMEN Ordering Facility: [facility] Address: [address] [place] [address] Performed By: #### 5 8410-2 #### [facility] CLIA [id number] [address] [place] [address] [place] Bilirubin [Mass/Vol] 0.5 mg/dL Normal 0.2-1.3 [facility] Comment on above: Order Comment: Speci men Type: BLOOD SPECIMEN Ordering Facility: [facility] Address: [address] [place] [address] Performed By: #### 5 8410-2 #### [facility] CLIA [id number] [address] [place] [address] [place] Calcium [Mass/Vol] 10.1 mg/dL Normal 8.5-10.2 [facility] Comment on above: Order Comment: Speci men Type: BLOOD SPECIMEN Ordering Facility: [facility] Address: [address] [place] [address] Performed By: #### 5 8410-2 #### [facility] CLIA [id number] [address] [place] [address] [place] Chloride [Moles/Vol] 96 mmol/L Low 98-107 [facility] Comment on above: Order Comment: Speci men Type: BLOOD SPECIMEN Ordering Facility: [facility] Address: [address] [place] [address] Performed By: #### 5 8410-2 #### [facility] CLIA [id number] [address] [place] [address] [place] CO2 [Moles/Vol] 30 mmol/L Normal 22-30 [facility] Comment on above: Order Comment: Speci men Type: BLOOD SPECIMEN Ordering Facility: [facility] Address: [address] [place] [address] Performed By: #### 5 8410-2 #### [facility] CLIA [id number] [address] [place] [address] [place] Creatinine [Mass/Vol] 1.04 mg/dL High 0.58-0.96 [facility] Comment on above: Order Comment: Speci men Type: BLOOD SPECIMEN Ordering Facility: [facility] Address: [address] [place] [address] Performed By: #### 5 8410-2 #### [facility] CLIA [id number] [address] [place] [address] [place] Creatinine and Glomerular filtration rate.predicted panel (S/P/Bld) 68 mL/min/1.73m??? Normal >=60 [facility] Comment on above: Order Comment: David horton Type: BLOOD SPECIMEN Ordering Facility: [facility] Address: [address] [place] [address] Result Comment: Sandie mated Glomerular Filtration Rate [...] GFR. Performed By: #### 5 8410-2 #### [facility] CLIA [id number] [address] [place] [address] [place] Glucose [Mass/Vol] 79 mg/dL Normal 74-99 [facility] Comment on above: Order Comment: David horton Type: BLOOD SPECIMEN Ordering Facility: [facility] Address: [address] [place] [address] Result Comment: The [place] Diabetes [employer] (ADA) provides guidance for cutoff [...] Standards of Medical Care in Diabetes 2016, [place] [employer]. Diabetes Care. 2016.39(Suppl 1). Performed By: #### 5 8410-2 #### [facility] CLIA [id number] [address] [place] [address] [place] Potassium [Moles/Vol] 4.1 mmol/L Normal 3.7-5.1 [facility] Comment on above: Order Comment: Speci men Type: BLOOD SPECIMEN Ordering Facility: [facility] Address: [address] [place] [address] Performed By: #### 5 8410-2 #### [facility] CLIA [id number] [address] [place] Protein [Mass/Vol] 8.0 g/dL Normal 6.3-8.0 [facility] Comment on above: Order Comment: Speci men Type: BLOOD SPECIMEN Ordering Facility: [facility] Address: [address] [place] [address] Performed By: #### 5 8410-2 #### [facility] CLIA [id number] [address] Sodium [Moles/Vol] 137 mmol/L Normal 136-144 [facility] [facility] Comment on above: Order Comment: Speci men Type: BLOOD SPECIMEN Ordering Facility: [facility] Address: [address] [place] [address] Performed By: #### 5 8410-2 #### [facility] CLIA [id number] [address] [place] Urea nitrogen [Mass/Vol] 20 mg/dL Normal 7-21 [facility] Comment on above: Order Comment: Speci men Type: BLOOD SPECIMEN Ordering Facility: [facility] Address: [address] [place] [address] Performed By: #### 5 8410-2 #### [facility] CLIA [id number] [address] [place] NURSING PROGon 05-19-2024 NURSING PROG HNO ID: [id number] Author: CYNTHIA CADE, JAJA Service: ? Author Type: Registered Nurse Type: Nursing Progress Note Filed: 05/19/2024 05:09 Note Text: Other: 0508 refused new IV start ,even though her IV sluggish. Patient educated about keeping old IV in . Doesn't want it removed at this time. Normal [facility] XR CHEST 2V FRONTAL/LATon XR CHEST [...] tissues: Unremarkable. IMPRESSION: No acute radiographic abnormality. Animal Keeper Head: PSCB Transcribe Date/Time: May 19 2024 10:00A Dictated by : PATRICIA MCCARTNEY MD This examination was interpreted and the report reviewed and electronically signed by: PATRICIA MCCARTNEY MD on May 19 2024 10:03AM EST [id number] Normal [facility] CBC panel Auto (Bld)on 05-18 Erythrocyte distribution width (RBC) [Ratio] 14.2 % Normal 11.5-15.0 [facility] Comment on above: Order Comment: David horton Type: BLOOD SPECIMENOrdering Facility: [facility] Address: [address] [place] [address] Performed By: #### 5 8410-2 ####[facility] [id number] [address] STATES OF [facility] Hematocrit (Bld) [Volume fraction] 45.5 % Normal 36.0-46.0 [facility] Comment on above: Order Comment: David horton Type: BLOOD SPECIMENOrdering Facility: [facility] Address: [address] [place] [address] Performed By: #### 5 8410-2 ####[facility]IA [id number] [place] [address] [place] Hemoglobin (Bld) [Mass/Vol] 15.3 g/dL Normal 11.5-15.5 [facility] Comment on above: Order Comment: Speci men Type: BLOOD SPECIMENOrdering Facility: [facility] Address: [address] [place] [address] Performed By: #### 5 8410-2 ####[facility] [id number] [address] [place] MCH (RBC) [Entitic mass] 32.0 pg Normal 26.0-34.0 [facility] Comment on above: Order Comment: Speci men Type: BLOOD SPECIMENOrdering Facility: [facility] Address: [address] [place] [address] Performed By: #### 5 8410-2 ####[facility] [id number] [address] MCHC (RBC) [Mass/Vol] 33.6 g/dL Normal 30.5-36.0 [facility] Comment on above: Order Comment: Speci men Type: BLOOD SPECIMENOrdering Facility: [facility] Address: [address] [place] [address] Performed By: #### 5 8410-2 ####[facility] [id number] [address] MCV (RBC) [Entitic vol] 95.2 fL Normal 80.0-100.0 M [facility] Comment on above: Order Comment: Speci men Type: BLOOD SPECIMENOrdering Facility: [facility] Address: [address] [place] [address] Performed By: #### 5 8410-2 ####[facility]IA [id number] [address] [place] Nucleated RBC (Bld) [#/Vol] 10*3/uL Normal <0.01 [facility] Comment on above: Order Comment: Speci men Type: BLOOD SPECIMENOrdering Facility: [facility] Address: [address] [place] [address] Performed By: #### 5 8410-2 ####[facility]IA [id number] [place] [address] [place] Platelet mean volume (Bld) [Entitic vol] 10.7 fL Normal 9.0-12.7 [facility] Comment on above: Order Comment: Speci men Type: BLOOD SPECIMENOrdering Facility: [facility] Address: [address] [place] [address] Performed By: #### 5 8410-2 ####[facility]ORY[facility]IA [id number] [place] [address] [place] Platelets (Bld) [#/Vol] 293 10*3/uL Normal 150-400 [facility] Comment on above: Order Comment: Speci men Type: BLOOD SPECIMENOrdering Facility: [facility] Address: [address] [place] [address] Performed By: #### 5 8410-2 ####[facility]IA [id number] [address] [place] RBC (Bld) [#/Vol] 4.78 10*6/uL Normal 3.90-5.20 [facility] Comment on above: Order Comment: Speci men Type: BLOOD SPECIMENOrdering Facility: [facility] Address: [address] [place] [address] Performed By: #### 5 8410-2 ####[facility] [id number] [address] [place] WBC (Bld) [#/Vol] 9.76 10*3/uL Normal 3.70-11.00 [facility] Comment on above: Order Comment: Speci men Type: BLOOD SPECIMENOrdering Facility: [facility] Address: [address] [place] [address] Performed By: #### 5 8410-2 ####[facility]IA [id number] [address] [place] Comprehensive metabolic 2000 panelon 05-18-2024 Albumin [Mass/Vol] 3.9 g/dL Normal 3.9-4.9 [facility] Comment on above: Order Comment: Speci men Type: BLOOD SPECIMENOrdering Facility: [facility] Address: [address] [place] [address] Performed By: #### 2 4323-8 ####[facility]IA [id number] [place], [place] [address] [place] [address] ALP [Catalytic activity/Vol] 249 U/L High 34-123 [facility] Comment on above: Order Comment: Speci men Type: BLOOD SPECIMENOrdering Facility: [facility] Address: [address] [place] [address] Performed By: #### 2 4323-8 ####[facility]IA [id number] [place] [address] [place] ALT [Catalytic activity/Vol] 60 U/L High 7-38 [facility] Comment on above: Order Comment: Speci men Type: BLOOD SPECIMENOrdering Facility: [facility] Address: [address] [place] [address] Performed By: #### 2 4323-8 ####[facility]IA [id number] [address] STATES [place] Anion gap [Moles/Vol] 12 mmol/L Normal 8-15 [facility] Comment on above: Order Comment: Speci men Type: BLOOD SPECIMENOrdering Facility: [facility] Address: [address] [place] [address] Performed By: #### 2 4323-8 ####[facility] [id number] [address] [place] AST [Catalytic activity/Vol] 41 U/L High 13-35 [facility] Comment on above: Order Comment: Speci men Type: BLOOD SPECIMENOrdering Facility: [facility] Address: [address] [place] [address] Performed By: #### 2 4323-8 ####[facility]CLIA [id number] [address] [place] Bilirubin [Mass/Vol] 0.5 mg/dL Normal 0.2-1.3 [facility] Comment on above: Order Comment: Speci men Type: BLOOD SPECIMENOrdering Facility: [facility] Address: [address] [place] [address] Performed By: #### 2 4323-8 ####[facility]ORYCLIA [id number] [place] [address] [place] Calcium [Mass/Vol] 9.4 mg/dL Normal 8.5-10.2 [facility] Comment on above: Order Comment: Speci men Type: BLOOD SPECIMENOrdering Facility: [facility] Address: [address] [place] [address] Performed By: #### 2 4323-8 ####[facility]ORYCLIA [id number] [place] [address] [place] Chloride [Moles/Vol] 100 mmol/L Normal 98-107 [facility] Comment on above: Order Comment: Speci men Type: BLOOD SPECIMENOrdering Facility: [facility] Address: [address] [place] [address] Performed By: #### 2 4323-8 ####[facility]ORYCLIA [id number] [place] [address] [place] CO2 [Moles/Vol] 22 mmol/L Normal 22-30 [facility] Comment on above: Order Comment: Speci men Type: BLOOD SPECIMENOrdering Facility: [facility] Address: [address] [place] [address] Performed By: #### 2 4323-8 ####[facility]CLIA [id number] [address] [place] Creatinine [Mass/Vol] 1.00 mg/dL High 0.58-0.96 [facility] Comment on above: Order Comment: Speci men Type: BLOOD SPECIMENOrdering Facility: [facility] Address: [address] [place] [address] Performed By: #### 2 4323-8 ####[facility]CLIA [id number] [address] Creatinine and Glomerular filtration rate.predicted panel (S/P/Bld) 71 mL/min/1.73m??? Normal >=60 [facility] Comment on above: Order Comment: Speci men Type: BLOOD SPECIMENOrdering Facility: [facility] Address: [address] [place] [address] Result Comment: Sandie mated Glomerular Filtration Rate [...] actual GFR. Performed By: #### 2 4323-8 ####[facility] [id number] [place] [address] [place] Glucose [Mass/Vol] 87 mg/dL Normal 74-99 [facility] Comment on above: Order Comment: Spectian horton Type: BLOOD SPECIMENOrdering Facility: [facility] Address: [address] [place] [id number] Result Comment: The [place] [employer] (ADA) provides guidance for cutoff [...] Standards of Medical Care in Diabetes 2016, [place] [employer]. Diabetes Care. 2016.39(Suppl 1). Performed By: #### 2 4323-8 ####[facility]ORYCLIA [id number] [place] [id number] [place] Potassium [Moles/Vol] 4.7 mmol/L Normal 3.7-5.1 [facility] Comment on above: Order Comment: David horton Type: BLOOD SPECIMENOrdering Facility: [facility] Address: [address] [place] [address] Performed By: #### 2 4323-8 ####[facility] [id number] [place] [id number] [place] Protein [Mass/Vol] 6.9 g/dL Normal 6.3-8.0 [facility] Comment on above: Order Comment: Speci men Type: BLOOD SPECIMENOrdering Facility: [facility] Address: [address] [place] [address] Performed By: #### 2 4323-8 ####[facility] [id number] [address] Sodium [Moles/Vol] 134 mmol/L Low 136-144 [facility] Comment on above: Order Comment: Speci men Type: BLOOD SPECIMENOrdering Facility: [facility] Address: [address] [place] [address] Performed By: #### 2 4323-8 ####[facility] [id number] [address] Urea nitrogen [Mass/Vol] 17 mg/dL Normal 7-21 [facility] Comment on above: Order Comment: Speci men Type: BLOOD SPECIMENOrdering Facility: [facility] Address: [address] [place] [address] Performed By: #### 2 4323-8 ####[facility] [id number] [address] CBC panel Auto (Bld)on 05-17 Erythrocyte distribution width (RBC) [Ratio] 14.3 % Normal 11.5-15.0 [facility] Comment on above: Order Comment: Speci men Type: BLOOD SPECIMENOrdering Facility: [facility] Address: [address] [place] [address] Performed By: #### 5 8410-2 ####[facility] [id number] [address] Hematocrit (Bld) [Volume fraction] 42.1 % Normal 36.0-46.0 [facility] Comment on above: Order Comment: Speci men Type: BLOOD SPECIMENOrdering Facility: [facility] Address: [address] [place] [address] Performed By: #### 5 8410-2 ####[facility] [id number] [address] Hemoglobin (Bld) [Mass/Vol] 13.7 g/dL Normal 11.5-15.5 [facility] Comment on above: Order Comment: Speci men Type: BLOOD SPECIMENOrdering Facility: [facility] Address: [address] [place] [address] Performed By: #### 5 8410-2 ####[facility] [id number] [address] MCH (RBC) [Entitic mass] 31.7 pg Normal 26.0-34.0 [facility] Comment on above: Order Comment: Speci men Type: BLOOD SPECIMENOrdering Facility: [facility] Address: [address] [place] [address] Performed By: #### 5 8410-2 ####[facility] [id number] [address] MCHC (RBC) [Mass/Vol] 32.5 g/dL Normal 30.5-36.0 [facility] Comment on above: Order Comment: Speci men Type: BLOOD SPECIMENOrdering Facility: [facility] Address: [address] [place] [address] Performed By: #### 5 8410-2 ####[facility] [id number] [address] MCV (RBC) [Entitic vol] 97.5 fL Normal 80.0-100.0 M [facility] Comment on above: Order Comment: Speci men Type: BLOOD SPECIMENOrdering Facility: [facility] Address: [address] [place] [address] Performed By: #### 5 8410-2 ####[facility]CL[facility] [id number] [address] Nucleated RBC (Bld) [#/Vol] 10*3/uL Normal <0.01 [facility] Comment on above: Order Comment: Speci men Type: BLOOD SPECIMENOrdering Facility: [facility] Address: [address] [place] [address] Performed By: #### 5 8410-2 ####[facility]CLIA [id number] [place] [address] [place] Platelet mean volume (Bld) [Entitic vol] 10.5 fL Normal 9.0-12.7 [facility] Comment on above: Order Comment: Speci men Type: BLOOD SPECIMENOrdering Facility: [facility] Address: [address] [place] [address] Performed By: #### 5 8410-2 ####[facility]CLIA [id number] [place] [address] [place] Platelets (Bld) [#/Vol] 265 10*3/uL Normal 150-400 [facility] Comment on above: Order Comment: Speci men Type: BLOOD SPECIMENOrdering Facility: [facility] Address: [address] [place] [address] Performed By: #### 5 8410-2 ####[facility]CLIA [id number] [address] [place] RBC (Bld) [#/Vol] 4.32 10*6/uL Normal 3.90-5.20 [facility] Comment on above: Order Comment: Speci men Type: BLOOD SPECIMENOrdering Facility: [facility] Address: [address] [place] [address] Performed By: #### 5 8410-2 ####[facility]ORYCLIA [id number] [place] [address] [place] WBC (Bld) [#/Vol] 9.33 10*3/uL Normal 3.70-11.00 [facility] Comment on above: Order Comment: Speci men Type: BLOOD SPECIMENOrdering Facility: [facility] Address: [address] [place] [address] Performed By: #### 5 8410-2 ####[facility]CLIA [id number] [address] [place] CONSULTon 05-17-2024 CONSULT HNO ID: [id number] Author: JOSIE OVALLES APRN.SLICE PLUG CUTTER OPERATOR Service: Wound/Ostomy Author Type: Nurse Practitioner Type: Consults Filed: 05/17/2024 13:00 Note Text: WOUND CARE SERVICE CONSULT NOTE SERVICE DATE: 05/17/2024 SERVICE TIME: 1249 Woud Consult (From admission, onward) Start Ordered 05/16/24 1715 Wound Care Consult ONCE Electronically Signed By: Dex Wilkinson MD [ ] 05/16/24 [address] Dex Wilkinson for an opinion regarding left leg. My [...] PERMANENT TRANSVENOUS PACEMAKER INSERTION 2006 ICD implant, [facility] ANESTHESIA TUBAL LIGATION/TRANSECTION APPENDECTOMY 05/05/2014 , [...] 20 mL INTRAVENOUS (more content not included)... [facility] CONSULT PROGon 05-17-2024 CONSULT PROG HNO ID: [id number] Author: SALLIE WILKERSON RPh Service: Pharmacy Author [...] have any questions, please contact pharmacy at 7832. Age: [age] year old Allergies: ALLERGIES Allergen Reactions Prozac [Fluoxetine * Other: See Comments suicidal ideations Ativan [Lorazepam] Vomiting Azithromycin Intolerance [place] Anaphylaxis [place] Anaphylaxis pickles Fish Anaphylaxis Levofloxacin In D5w [...] Readings: Date: Ht: 05/15/2024 160 cm (5' 3") CrCl: 68.3 mL/min Temp (24hrs), Av.3 ?C [...] Date/Time Value 05/17/2024 1240 14.7 Sallie Wilkerson [facility] Normal [facility] Comprehensive metabolic 2000 panelon 05-17-2024 Albumin [Mass/Vol] 4.0 g/dL Normal 3.9-4.9 [facility] Comment on above: Order Comment: Speci men Type: BLOOD SPECIMENOrdering Facility: [facility] Address: [address] [place] [address] Performed By: #### 2 4323-8 ####[facility]ORYCLIA [id number] [place] [address] [place] ALP [Catalytic activity/Vol] 249 U/L High 34-123 [facility] Comment on above: Order Comment: Speci men Type: BLOOD SPECIMENOrdering Facility: [facility] Address: [address] [place] [address] Performed By: #### 2 4323-8 ####[facility]ORYCLIA [id number] [place] [address] [place] ALT [Catalytic activity/Vol] 58 U/L High 7-38 [facility] Comment on above: Order Comment: Speci men Type: BLOOD SPECIMENOrdering Facility: [facility] Address: [address] [place] [address] Performed By: #### 2 4323-8 ####[facility]ORYCLIA [id number] [place] [address] [place] Anion gap [Moles/Vol] 10 mmol/L Normal 8-15 [facility] Comment on above: Order Comment: Speci men Type: BLOOD SPECIMENOrdering Facility: [facility] Address: [facility] [place] [address] Performed By: #### 2 4323-8 ####[facility]ORYCLIA [id number] [address] [place] AST [Catalytic activity/Vol] 47 U/L High 13-35 [facility] Comment on above: Order Comment: Speci men Type: BLOOD SPECIMENOrdering Facility: [facility] Address: [address] [place] [address] Performed By: #### 2 4323-8 ####[facility]ORYCLIA [id number] [place] [address] [place] Bilirubin [Mass/Vol] 0.6 mg/dL Normal 0.2-1.3 [facility] Comment on above: Order Comment: Speci men Type: BLOOD SPECIMENOrdering Facility: [facility] Address: [address] [place] [address] Performed By: #### 2 4323-8 ####[facility]ORYCLIA [id number] [place] [address] [place] Calcium [Mass/Vol] 9.1 mg/dL Normal 8.5-10.2 [facility] Comment on above: Order Comment: Speci men Type: BLOOD SPECIMENOrdering Facility: [facility] Address: [address] [place] [address] Performed By: #### 2 4323-8 ####[facility]ORYCLIA [id number] [address] [place] Chloride [Moles/Vol] 99 mmol/L Normal 98-107 [facility] Comment on above: Order Comment: Speci men Type: BLOOD SPECIMENOrdering Facility: [facility] Address: [address] [place] [address] Performed By: #### 2 4323-8 ####[facility]ORYCLIA [id number] [address] [place] CO2 [Moles/Vol] 25 mmol/L Normal 22-30 [facility] Comment on above: Order Comment: Speci men Type: BLOOD SPECIMENOrdering Facility: [facility] Address: [address] [place] [address] Performed By: #### 2 4323-8 ####[facility]ORYCLIA [id number] [address] Creatinine [Mass/Vol] 0.87 mg/dL Normal 0.58-0.96 [facility] Comment on above: Order Comment: Speci men Type: BLOOD SPECIMENOrdering Facility: [facility] Address: [address] [place] [address] Performed By: #### 2 4323-8 ####[facility]ATORYCLIA [id number] [address] Creatinine and Glomerular filtration rate.predicted panel (S/P/Bld) 84 mL/min/1.73m??? Normal >=60 [facility] Comment on above: Order Comment: Speci men Type: BLOOD SPECIMENOrdering Facility: [facility] Address: [address] [place] [address] Result Comment: Sandie mated Glomerular Filtration Rate [...] Performed By: #### 2 4323-8 ####[facility]ORATORYCLIA [id number] [place] [address] [place] Glucose [Mass/Vol] 97 mg/dL Normal 74-99 [facility] Comment on above: Order Comment: Kianai men Type: BLOOD SPECIMENOrdering Facility: [facility] Address: [address] [place] [id number] Result Comment: The [place] Diabetes [employer] (ADA) provides guidance for cutoff [...] Standards of Medical Care in Diabetes 2016, [place] [employer]. Diabetes Care. 2016.39(Suppl 1). Performed By: #### 2 4323-8 ####[facility]ORATORYCLIA [id number] [place] [address] [place] Potassium [Moles/Vol] 4.6 mmol/L Normal 3.7-5.1 [facility] Comment on above: Order Comment: David sol Type: BLOOD SPECIMENOrdering Facility: [facility] Address: [address] [place] [address] Performed By: #### 2 4323-8 ####[facility]ORATORYCLIA [id number] [place] [address] [place] Protein [Mass/Vol] 6.7 g/dL Normal 6.3-8.0 [facility] Comment on above: Order Comment: Kianai sol Type: BLOOD SPECIMENOrdering Facility: [facility] Address: [address] [place], [place] [address] Performed By: #### 2 4323-8 ####[facility]ORATORYCLIA [id number] [place] [address] [place] Sodium [Moles/Vol] 134 mmol/L Low 136-144 [facility] Comment on above: Order Comment: Kianai men Type: BLOOD SPECIMENOrdering Facility: [facility] Address: [address] [place] [address] Performed By: #### 2 4323-8 ####[facility]ORATORYCLIA [id number] [address] STATES [facility] Urea nitrogen [Mass/Vol] 12 mg/dL Normal 7-21 [facility] Comment on above: Order Comment: Speci men Type: BLOOD SPECIMENOrdering Facility: [facility] Address: [address] [place] [address] Performed By: #### 2 4323-8 ####[facility]ORATORYCLIA [id number] [place] [address] [place] Vancomycin [place] SerPl-mCncon 05-17-2024 Vancomycin random [Mass/Vol] 14.7 ug/mL Normal 10.0-20.0 [facility] Comment on above: Order Comment: Speci men Type: BLOOD SPECIMEN Ordering Facility: [facility] Address: [address] [place] [address] Result Comment: Refe rence ranges and high/low indicator flags are provided as general guidelines only. The treating physician must determine appropriate target levels/dosing based on the specific clinical situation. Performed By: #### 5 8410-2 #### [facility] CLIA [id number] [address] CBC panel Auto (Bld)on 05-16 Erythrocyte distribution width (RBC) [Ratio] 14.5 % Normal 11.5-15.0 [facility] Comment on above: Order Comment: Speci men Type: BLOOD SPECIMENOrdering Facility: [facility] Address: [address] [place] [address] Performed By: #### 5 8410-2 ####[facility]ORATORYCLIA [id number] [address] Hematocrit (Bld) [Volume fraction] 37.8 % Normal 36.0-46.0 [facility] Comment on above: Order Comment: Speci men Type: BLOOD SPECIMENOrdering Facility: [facility] Address: [address] [place] [address] Performed By: #### 5 8410-2 ####[facility]ORATORYCLIA [id number] [address] Hemoglobin (Bld) [Mass/Vol] 12.6 g/dL Normal 11.5-15.5 [facility] Comment on above: Order Comment: Speci men Type: BLOOD SPECIMENOrdering Facility: [facility] Address: [address] [place] [address] Performed By: #### 5 8410-2 ####[facility]ORATORYCLIA [id number] [address] MCH (RBC) [Entitic mass] 32.2 pg Normal 26.0-34.0 [facility] Comment on above: Order Comment: Speci men Type: BLOOD SPECIMENOrdering Facility: [facility] Address: [address] [place] [address] Performed By: #### 5 8410-2 ####[facility] LABORATORYCLIA [id number] [address] MCHC (RBC) [Mass/Vol] 33.3 g/dL Normal 30.5-36.0 [facility] Comment on above: Order Comment: Speci men Type: BLOOD SPECIMENOrdering Facility: [facility] Address: [address] [place] [address] Performed By: #### 5 8410-2 ####[facility]ORY[facility]IA [id number] [address] MCV (RBC) [Entitic vol] 96.7 fL Normal 80.0-100.0 [facility] Comment on above: Order Comment: Speci men Type: BLOOD SPECIMENOrdering Facility: [facility] Address: [address] [place] [address] Performed By: #### 5 8410-2 ####[facility]ATORYCLIA [id number] [address] Nucleated RBC (Bld) [#/Vol] 10*3/uL Normal <0.01 [facility] Comment on above: Order Comment: Speci men Type: BLOOD SPECIMENOrdering Facility: [facility] Address: [address] [place] [address] Performed By: #### 5 8410-2 ####[facility]ATORYCLIA [id number] [place] [address] [facility] [place] Platelet mean volume (Bld) [Entitic vol] 10.5 fL Normal 9.0-12.7 [facility] Comment on above: Order Comment: Speci men Type: BLOOD SPECIMENOrdering Facility: [facility] Address: [address] [place] [address] Performed By: #### 5 8410-2 ####[facility]ATORYCLIA [id number] [place] [address] [facility] [place] Platelets (Bld) [#/Vol] 234 10*3/uL Normal 150-400 [facility] Comment on above: Order Comment: Speci men Type: BLOOD SPECIMENOrdering Facility: [facility] Address: [address] [place] [address] Performed By: #### 5 8410-2 ####[facility]ATORYCLIA [id number] [place] [address] [place] RBC (Bld) [#/Vol] 3.91 10*6/uL Normal 3.90-5.20 [facility] Comment on above: Order Comment: Speci men Type: BLOOD SPECIMENOrdering Facility: [facility] Address: [address] [place] [address] Performed By: #### 5 8410-2 ####[facility]ATORYCLIA [id number] [address] [place] WBC (Bld) [#/Vol] 6.77 10*3/uL Normal 3.70-11.00 [facility] Comment on above: Order Comment: Speci men Type: BLOOD SPECIMENOrdering Facility: [facility] Address: [address] [place] [address] Performed By: #### 5 8410-2 ####[facility]ATORYCLIA [id number] [address] CONSULT PROGon 05-16-2024 CONSULT PROG HNO ID: [id number] Author: ALYCIA LEES RPh Service: Pharmacy Author Type: Pharmacist Type: [...] have any questions, please contact pharmacy at 0969. Age: [age] year old Allergies: ALLERGIES Allergen Reactions Prozac [Fluoxetine * Other: See Comments suicidal ideations Ativan [Lorazepam] Vomiting Azithromycin Intolerance [place] Anaphylaxis [place] Anaphylaxis pickles Fish Anaphylaxis Levofloxacin In D5w [...] Readings: Date: Ht: 05/15/2024 160 cm (5' 3") CrCl: 72.4 mL/min Temp (24hrs), Av.4 ?C (97.6 ?F), Min:36 ?C (96.8 ?F), Max:36.8 ?C (98.2 ?F) - Current Temp: 36 ?C (96.8 ?F) Labs BUN (mg/dL) Date Value 05/16/2024 12 05/15/2024 11 04/26/2021 11 Creatinine (mg/dL) Date Value 05/16/2024 0.82 05/15/2024 0.89 04/26/2021 0.73 WBC (k/uL) Date Value 05/16/2024 6.77 05/15/2024 9.30 04/26/2021 7.40 Vancomycin Levels: No results found for: ALICIA Lees, [facility] Normal [facility] Comprehensive metabolic 2000 panelon 05-16-2024 Albumin [Mass/Vol] 3.6 g/dL Low 3.9-4.9 [facility] Comment on above: Order Comment: Speci men Type: BLOOD SPECIMEN [facility] Address: [address] [place] [address] Performed By: #### 5 8410-2 #### [facility] CLIA [id number] [address] ALP [Catalytic activity/Vol] 212 U/L High 34-123 [facility] Comment on above: Order Comment: Speci men Type: BLOOD SPECIMEN [facility]ing [facility]: [facility] Address: [address] [place] [address] Performed By: #### 5 8410-2 #### [facility] CLIA [id number] [address] ALT [Catalytic activity/Vol] 49 U/L High 7-38 [facility] Comment on above: Order Comment: Speci men Type: BLOOD SPECIMEN [facility]ing [facility]: [facility] Address: [address] [place] [address] Performed By: #### 5 8410-2 #### [facility] CLIA [id number] [address] Anion gap [Moles/Vol] 10 mmol/L Normal 8-15 [facility] Comment on above: Order Comment: Speci men Type: BLOOD SPECIMEN [facility]ing [facility]: [facility] Address: [address] [place] [address] Performed By: #### 5 8410-2 #### [facility] CLIA [id number] 1000 [place] [address] [place] AST [Catalytic activity/Vol] 57 U/L High 13-35 [facility] Comment on above: Order Comment: Speci men Type: BLOOD SPECIMEN [facility]ing [facility]: [facility] Address: [address] [place] [address] Performed By: #### 5 8410-2 #### [facility] CLIA [id number] 1000 [place] [address] [place] Bilirubin [Mass/Vol] 0.7 mg/dL Normal 0.2-1.3 [facility] Comment on above: Order Comment: Speci men Type: BLOOD SPECIMEN [facility]ing [facility] Address: [address] [place] [address] Performed By: #### 5 8410-2 #### [facility] CLIA [id number] [address] [place] [address] [place] Calcium [Mass/Vol] 8.9 mg/dL Normal 8.5-10.2 [facility] Comment on above: Order Comment: Speci men Type: BLOOD SPECIMEN [facility]ing [facility]: [facility] Address: [address] [place] [address] Performed By: #### 5 8410-2 #### [facility] CLIA [id number] [address] [place] [address] [place] Chloride [Moles/Vol] 105 mmol/L Normal 98-107 [facility] Comment on above: Order Comment: Speci men Type: BLOOD SPECIMEN [facility]ing [facility]: [facility] Address: [address] [place] [address] Performed By: #### 5 8410-2 #### [facility] CLIA [id number] [address] [place] [address] [place] CO2 [Moles/Vol] 22 mmol/L Normal 22-30 [facility] Comment on above: Order Comment: Speci men Type: BLOOD SPECIMEN [facility]ing [facility]: [facility] Address: [address] [place] [address] Performed By: #### 5 8410-2 #### [facility] CLIA [id number] [address] STATES OF [facility] Creatinine [Mass/Vol] 0.82 mg/dL Normal 0.58-0.96 [facility] Comment on above: Order Comment: David horton Type: BLOOD SPECIMEN Ordering Facility: [facility] Address: [address] [place] [address] Performed By: #### 5 8410-2 #### [facility] CLIA [id number] [address] Creatinine and Glomerular filtration rate.predicted panel (S/P/Bld) 91 mL/min/1.73m??? Normal >=60 [facility] Comment on above: Order Comment: David horton Type: BLOOD SPECIMEN Ordering [facility]: [facility] Address: [address] [place] [address] Result Comment: Sandie mated Glomerular Filtration Rate [...] GFR. Performed By: #### 5 8410-2 #### [facility] CLIA [id number] [address] Glucose [Mass/Vol] 79 mg/dL Normal 74-99 [facility] Comment on above: Order Comment: David horton Type: BLOOD SPECIMEN Ordering [facility]: [facility] Address: [address] [place] [address] Result Comment: The [place] [employer] (ADA) provides guidance for cutoff [...] Standards of Medical Care in Diabetes 2016, [place] [employer]. Diabetes Care. 2016.39(Suppl 1). Performed By: #### 5 8410-2 #### [facility] CLIA [id number] [address] [place] [address] [place] [facility] Potassium [Moles/Vol] 4.4 mmol/L Normal 3.7-5.1 [facility] Comment on above: Order Comment: Speci men Type: BLOOD SPECIMEN Ordering [facility]: [facility] Address: [address] [place] [address] Performed By: #### 5 8410-2 #### [facility] CLIA [id number] [address] [place] [address] [place] Protein [Mass/Vol] 6.0 g/dL Low 6.3-8.0 [facility] Comment on above: Order Comment: Kianai men Type: BLOOD SPECIMEN Ordering Facility: [facility] Address: [address] [place] [address] Performed By: #### 5 8410-2 #### [facility] CLIA [id number] [address] STATES OF [facility] Sodium [Moles/Vol] 137 mmol/L Normal 136-144 [facility] Comment on above: Order Comment: Kianai men Type: BLOOD SPECIMEN Ordering [facility]: [facility] Address: [address] [place] [address] Performed By: #### 5 8410-2 #### [facility] CLIA [id number] [address] STATES OF [place] Urea nitrogen [Mass/Vol] 12 mg/dL Normal 7-21 [facility] Comment on above: Order Comment: Speci men Type: BLOOD SPECIMEN [facility]ing [facility]: [facility] Address: [address] [place] [address] Performed By: #### 5 8410-2 #### [facility] CLIA [id number] [address] [place] HIGH SENSITIVITY TROPONIN To n 05-16-2024 Troponin T.cardiac High sensitivity method [Mass/Vol] 25 ng/L High <12 [facility] Comment on above: Order Comment: Speci men Type: BLOOD SPECIMEN Ordering [facility]: [facility] Address: [address] [place] [address] Performed By: #### 5 8410-2 #### [facility] CLIA [id number] [address] [place] [address] [place] ALLIED HEALTHon 05-15-2024 ALLIED HEALTH HNO ID: [id number] Author: ABELARDO LEES CT Service: Radiology Author Type: Technologist Type: Allied Health Filed: 05/15/2024 12:02 Note Text: Radiology Service [...] PATIENT PRESENTS WITH AN IMPLANTABLE OR ATTACHED QUALITY CONTROL ANALYST: No RADIOLOGY DEPARTMENT: General X-ray: Exam(s) Completed: Chest X-Ray PERIPHERAL IV DATA: Not applicable SIGNED BY: MIRACLE Gomez May 15, 2024 12:01 PM [facility] HNO ID: [id number] Author: DOMINGUEZ BEGUM RT(R) Service: Radiology Author Type: Technologist Type: Allied Health Filed: 05/15/2024 11:22 Note Text: MEDIC @ BS GETTING LABS, IMAGING ORDER OUTSTANDING [facility] Bacteria Bld Culton 05-16-19 25 Bacteria identified Cx Nom (Bld) CULTURE, BLOOD: No growth 5 days GRAM STAIN: This blood culture had less than the recommended 8 ml per bottle, which could decrease the sensitivity of the test. [facility] Comment on above: Performed By: #### 6 00-7 ####[facility] LABCLIA [id number] [address] [place] Bacteria identified Cx Nom (Bld) CULTURE, BLOOD: No growth 5 days GRAM STAIN: This blood culture had less than the recommended 8 ml per bottle, which could decrease the sensitivity of the test. Normal [facility] Comment on above: Performed By: #### 6 00-7 ####[facility] LABCLIA [id number] [address] [place] Bacteria Wnd Culton 05-16-19 25 Bacteria identified Cx Nom (Wound) CULTURE, WOUND: No growth GRAM STAIN: Rare Gram positive cocci Many Polymorphonuclear leukocytes Abnormal [facility] Comment on above: Performed By: #### 6 462-6 ####[facility] LABCLIA [id number] [place] [address] [place] CBC W Auto Differential pane l (Bld)on 05-15-2024 Basophils (Bld) [#/Vol] 0.08 10*3/uL Normal <0.11 [facility] Comment on above: Order Comment: Speci men Type: BLOOD SPECIMENOrdering Facility: [facility] Address: [address] [place] [address] Performed By: #### 5 7021-8 ####[facility]ORATORYCLIA [id number] [place] [address] [place] Basophils/100 WBC (Bld) 0.9 % Normal [facility] Comment on above: Order Comment: Speci men Type: BLOOD SPECIMENOrdering Facility: [facility] Address: [address] [place] [address] Performed By: #### 5 7021-8 ####[facility]ORATORYCLIA [id number] [place] [address] [place] Differential cell count method Nom (Bld) Auto Normal [facility] Comment on above: Order Comment: Speci men Type: BLOOD SPECIMENOrdering Facility: [facility] Address: [address] [place] [address] Performed By: #### 5 7021-8 ####[facility]ORATORYCLIA [id number] [place] [address] [place] Eosinophils (Bld) [#/Vol] 0.10 10*3/uL Normal <0.46 [facility] Comment on above: Order Comment: Speci men Type: BLOOD SPECIMENOrdering Facility: [facility] Address: [address] [place] [address] Performed By: #### 5 7021-8 ####[facility]ORATORYCLIA [id number] [address] [place] Eosinophils/100 WBC (Bld) 1.1 % Normal [facility] Comment on above: Order Comment: Speci men Type: BLOOD SPECIMENOrdering Facility: [facility] Address: [address] [place] [address] Performed By: #### 5 7021-8 ####[facility]ATORYCLIA [id number] [address] [place] Erythrocyte distribution width (RBC) [Ratio] 14.4 % Normal 11.5-15.0 [facility] Comment on above: Order Comment: Speci men Type: BLOOD SPECIMENOrdering Facility: [facility] Address: [address] [place] [address] Performed By: #### 5 7021-8 ####[facility]ATORYCLIA [id number] [address] Hematocrit (Bld) [Volume fraction] 44.8 % Normal 36.0-46.0 [facility] Comment on above: Order Comment: Speci men Type: BLOOD SPECIMENOrdering Facility: [facility] Address: [address] [place] [address] Performed By: #### 5 7021-8 ####[facility]ORATORYCLIA [id number] [address] [place] Hemoglobin (Bld) [Mass/Vol] 14.5 g/dL Normal 11.5-15.5 [facility] Comment on above: Order Comment: Speci men Type: BLOOD SPECIMENOrdering Facility: [facility] Address: [address] [place] [address] Performed By: #### 5 7021-8 ####[facility]ORATORYCLIA [id number] [address] [place] Immature granulocytes (Bld) [#/Vol] 0.04 10*3/uL Normal <0.10 [facility] Comment on above: Order Comment: Speci men Type: BLOOD SPECIMENOrdering Facility: [facility] Address: [address] [place] [address] Performed By: #### 5 7021-8 ####[facility]ORATORYCLIA [id number] [address] Immature granulocytes/100 WBC (Bld) 0.4 % Normal [facility] Comment on above: Order Comment: Speci men Type: BLOOD SPECIMENOrdering Facility: [facility] Address: [address] [place] [address] Performed By: #### 5 7021-8 ####[facility]ATORYCLIA [id number] [address] Lymphocytes (Bld) [#/Vol] 0.94 10*3/uL Low 1.00-4.00 [facility] Comment on above: Order Comment: Speci men Type: BLOOD SPECIMENOrdering Facility: [facility] Address: [address] [place] [address] Performed By: #### 5 7021-8 ####[facility]ATORYCLIA [id number] [address] Lymphocytes/100 WBC (Bld) 10.1 % Normal [facility] Comment on above: Order Comment: Speci men Type: BLOOD SPECIMENOrdering Facility: [facility] Address: [address] [place] [address] Performed By: #### 5 7021-8 ####[facility]ORATORYCLIA [id number] [address] MCH (RBC) [Entitic mass] 31.4 pg Normal 26.0-34.0 [facility] Comment on above: Order Comment: Speci men Type: BLOOD SPECIMENOrdering Facility: [facility] Address: [address] [place] [address] Performed By: #### 5 7021-8 ####[facility]ATORYCLIA [id number] [address] [place] MCHC (RBC) [Mass/Vol] 32.4 g/dL Normal 30.5-36.0 [facility] Comment on above: Order Comment: Speci men Type: BLOOD SPECIMENOrdering Facility: [facility] Address: [address] [place] [address] Performed By: #### 5 7021-8 ####[facility]ATORYCLIA [id number] [place] [address] [place] MCV (RBC) [Entitic vol] 97.0 fL Normal 80.0-100.0 [facility] Comment on above: Order Comment: Speci men Type: BLOOD SPECIMENOrdering Facility: [facility] Address: [address] [place] [address] Performed By: #### 5 7021-8 ####[facility]ORYCLIA [id number] [address] [place] Monocytes (Bld) [#/Vol] 0.49 10*3/uL Normal <0.87 [facility] Comment on above: Order Comment: Speci men Type: BLOOD SPECIMENOrdering Facility: [facility] Address: [address] [place] [address] Performed By: #### 5 7021-8 ####[facility]ORYCLIA [id number] [address] Monocytes/100 WBC (Bld) 5.3 % Normal [facility] Comment on above: Order Comment: Speci men Type: BLOOD SPECIMENOrdering Facility: [facility] Address: [address] [place] [address] Performed By: #### 5 7021-8 ####[facility]ORYCLIA [id number] [place] [address] [place] Neutrophils (Bld) [#/Vol] 7.65 10*3/uL High 1.45-7.50 [facility] Comment on above: Order Comment: Speci men Type: BLOOD SPECIMENOrdering Facility: [facility] Address: [address] [place] [address] Performed By: #### 5 7021-8 ####[facility]ORYCLIA [id number] [address] [place] Neutrophils/100 WBC (Bld) 82.2 % Normal [facility] Comment on above: Order Comment: Speci men Type: BLOOD SPECIMENOrdering Facility: [facility] Address: [address] [place] [address] Performed By: #### 5 7021-8 ####[facility]ORYCLIA [id number] [place] [address] [place] Nucleated RBC (Bld) [#/Vol] 10*3/uL Normal <0.01 [facility] Comment on above: Order Comment: Speci men Type: BLOOD SPECIMENOrdering Facility: [facility] Address: [address] [place] [address] Performed By: #### 5 7021-8 ####[facility]ORYCLIA [id number] [address] [place] Nucleated RBC/100 WBC (Bld) [Ratio] 0.0 /100 WBC Normal [facility] Comment on above: Order Comment: Speci men Type: BLOOD SPECIMENOrdering Facility: [facility] Address: [address] [place] [address] Performed By: #### 5 7021-8 ####[facility]ORYCLIA [id number] [place] [address] [place] Platelet mean volume (Bld) [Entitic vol] 10.2 fL Normal 9.0-12.7 [facility] Comment on above: Order Comment: Speci men Type: BLOOD SPECIMENOrdering Facility: [facility] Address: [address] [place] [address] Performed By: #### 5 7021-8 ####[facility]ORYCLIA [id number] [place] [address] [place] Platelets (Bld) [#/Vol] 278 10*3/uL Normal 150-400 [facility] Comment on above: Order Comment: Speci men Type: BLOOD SPECIMENOrdering Facility: [facility] Address: [address] [place] [address] Performed By: #### 5 7021-8 ####[facility]ORYCLIA [id number] [address] [place] RBC (Bld) [#/Vol] 4.62 10*6/uL Normal 3.90-5.20 [facility] Comment on above: Order Comment: Speci men Type: BLOOD SPECIMENOrdering Facility: [facility] Address: [address] [place] [address] Performed By: #### 5 7021-8 ####[facility]ORYCLIA [id number] [address] [place] WBC (Bld) [#/Vol] 9.30 10*3/uL Normal 3.70-11.00 [facility] Comment on above: Order Comment: Speci men Type: BLOOD SPECIMENOrdering Facility: [facility] Address: [address] [place] [address] Performed By: #### 5 7021-8 ####[facility]ORYCLIA [id number] [address] CONSULT PROGon 05-15-2024 CONSULT PROG HNO ID: [id number] Author: ALEXI GARZON [facility] Service: Pharmacy Author Type: Pharmacist Type: Consult [...] have any questions, please contact pharmacy at 2581. Age: [age] year old Allergies: ALLERGIES Allergen Reactions Prozac [Fluoxetine * Other: See Comments suicidal ideations Ativan [Lorazepam] Vomiting Azithromycin Intolerance [place] Anaphylaxis [place] Anaphylaxis pickles Fish Anaphylaxis Levofloxacin In D5w [...] Readings: Date: Ht: 05/15/2024 160 cm (5' 3") CrCl: 67 mL/min Temp (24hrs), Av.7 ?C [...] Levels: No results found for: ALICIA Garzon [facility] CT CHEST W IVCONon CT CHEST W IVCON * * *Final Report* * * DATE OF EXAM: May 15 2024 7:02PM [facility] [place] [facility] [place] CT CHEST W IVCON / [...] interlobular septal thickening likely due to edema. Animal Keeper Head: KIM Transcribe Date/Time: May 16 2024 9:02A Dictated by : BREANN HOOD MD This examination was interpreted and the report reviewed and electronically signed by: BREANN HOOD MD on May 16 2024 9:22AM EST [id number] Normal [facility] Comprehensive metabolic 2000 panelon 05-15-2024 Albumin [Mass/Vol] 4.5 g/dL Normal 3.9-4.9 [facility] Comment on above: Order Comment: Speci men Type: BLOOD SPECIMEN Ordering Facility: [facility] Address: [address] [place] [address] Performed By: #### 5 8410-2 #### [facility] CLIA [id number] [address] [place] [address] [place] ALP [Catalytic activity/Vol] 127 U/L High 34-123 [facility] Comment on above: Order Comment: Speci men Type: BLOOD SPECIMEN Ordering Facility: [facility] Address: [address] [place] [address] Performed By: #### 5 8410-2 #### [facility] CLIA [id number] [address] [place] [address] [place] ALT [Catalytic activity/Vol] 22 U/L Normal 7-38 [facility] Comment on above: Order Comment: Speci men Type: BLOOD SPECIMEN Ordering Facility: [facility] Address: [address] [place] [address] Performed By: #### 5 8410-2 #### [facility] CLIA [id number] [address] [place] [address] [place] Anion gap [Moles/Vol] 8 mmol/L Normal 8-15 [facility] Comment on above: Order Comment: Speci men Type: BLOOD SPECIMEN Ordering Facility: [facility] Address: [address] [place] [address] Performed By: #### 5 8410-2 #### [facility] CLIA [id number] [address] [place] [address] [place] AST [Catalytic activity/Vol] 23 U/L Normal 13-35 [facility] Comment on above: Order Comment: Speci men Type: BLOOD SPECIMEN Ordering Facility: [facility] Address: [address] [place] [address] Performed By: #### 5 8410-2 #### [facility] CLIA [id number] [address] [place] [address] [place] Bilirubin [Mass/Vol] 0.9 mg/dL Normal 0.2-1.3 [facility] Comment on above: Order Comment: Speci men Type: BLOOD SPECIMEN Ordering Facility: [facility] Address: [address] [place] [address] Performed By: #### 5 8410-2 #### [facility] CLIA [id number] [address] [place] [address] [place] Calcium [Mass/Vol] 9.4 mg/dL Normal 8.5-10.2 [facility] Comment on above: Order Comment: Speci men Type: BLOOD SPECIMEN Ordering Facility: [facility] Address: [address] [place] [address] Performed By: #### 5 8410-2 #### [facility] CLIA [id number] [address] [place] [address] [place] Chloride [Moles/Vol] 104 mmol/L Normal 98-107 [facility] Comment on above: Order Comment: Speci men Type: BLOOD SPECIMEN Ordering Facility: [facility] Address: [address] [place] [address] Performed By: #### 5 8410-2 #### [facility] CLIA [id number] 1000 [place] [address] [place] CO2 [Moles/Vol] 25 mmol/L Normal 22-30 [facility] Comment on above: Order Comment: Kianai men Type: BLOOD SPECIMEN Ordering Facility: [facility] Address: [address] [place] [address] Performed By: #### 5 8410-2 #### [facility] CLIA [id number] 1000 [place] [address] [place] Creatinine [Mass/Vol] 0.89 mg/dL Normal 0.58-0.96 [facility] Comment on above: Order Comment: Kianai men Type: BLOOD SPECIMEN Ordering Facility: [facility] Address: [address] [place] [address] Performed By: #### 5 8410-2 #### [facility] CLIA [id number] [address] Creatinine and Glomerular filtration rate.predicted panel (S/P/Bld) 82 mL/min/1.73m??? Normal >=60 [facility] Comment on above: Order Comment: Kianai men Type: BLOOD SPECIMEN Ordering Facility: [facility] Address: [address] [place] [address] Result Comment: Sandie mated Glomerular Filtration Rate [...] GFR. Performed By: #### 5 8410-2 #### [facility] CLIA [id number] [address] [place] [address] [place] Glucose [Mass/Vol] 80 mg/dL Normal 74-99 [facility] Comment on above: Order Comment: David horton Type: BLOOD SPECIMEN Ordering Facility: [facility] Address: [address] [place] [address] Result Comment: The [place] Diabetes [employer] (ADA) provides guidance for cutoff [...] Standards of Medical Care in Diabetes 2016, [place] [employer]. Diabetes Care. 2016.39(Suppl 1). Performed By: #### 5 8410-2 #### [facility] CLIA [id number] [address] [place] [address] [place] Potassium [Moles/Vol] 4.3 mmol/L Normal 3.7-5.1 [facility] Comment on above: Order Comment: David horton Type: BLOOD SPECIMEN Ordering Facility: [facility] Address: [address] [place] [address] Performed By: #### 5 8410-2 #### [facility] CLIA [id number] [address] [place] [address] [place] Protein [Mass/Vol] 7.3 g/dL Normal 6.3-8.0 [facility] Comment on above: Order Comment: David horton Type: BLOOD SPECIMEN Ordering Facility: [facility] Address: [address] [place] [address] Performed By: #### 5 8410-2 #### [facility] CLIA [id number] [address] Sodium [Moles/Vol] 137 mmol/L Normal 136-144 [facility] Comment on above: Order Comment: Speci men Type: BLOOD SPECIMEN Ordering Facility: [facility] Address: [address] [place] [address] Performed By: #### 5 8410-2 #### [facility] CLIA [id number] [address] Urea nitrogen [Mass/Vol] 11 mg/dL Normal 7-21 [facility] Comment on above: Order Comment: Speci men Type: BLOOD SPECIMEN Ordering Facility: [facility] Address: [address] [place] [address] Performed By: #### 5 8410-2 #### [facility] CLIA [id number] [address] ED NOTEon 05-15-2024 ED NOTE HNO ID: [id number] Author: CK TADEO RN Service: Nursing Author Type: Registered Nurse Type: ED Notes Filed: 05/15/2024 17:54 Note Text: Report called to [address] [place] [address] ED PROV NOTEon 05-15-2024 ED PROV NOTE HNO ID: [id number] Author: TARIQ PEREZ MD Service: Emergency Medicine [...] persistent chest pain. History provided by: Patient thread trimmer used: No PAST MEDICAL HISTORY Diagnosis Date [...] PERMANENT TRANSVENOUS PACEMAKER INSERTION 2006 ICD implant, [facility] ANESTHESIA TUBAL LIGATION/TRANSECTION APPENDECTOMY 05/05/2014 , [...] suicidal ideations Ativan [Lorazepam] Vomiting Azithromycin Intolerance [place] Anaphylaxis Fish Anaphylaxis Levofloxacin In D5w Swelling, [...] ?F) Or (more content not included)... Normal [facility] EKGon 05-15-2024 Electrocardiogram Ventricular Rate : 7 1 BPM Atrial Rate : 71 BPM P-R Interval : 162 ms QRS Duration : 90 ms Q-T Interval : 406 ms QTC Calculation(Bazett) : 441 ms Calculated P [place] : 41 degrees Calculated R [place] : 260 degrees Calculated T [place] : 75 degrees NORMAL SINUS RHYTHM LEFT ATRIAL ENLARGEMENT BIVENTRICULAR HYPERTROPHY CANNOT RULE OUT SEPTAL INFARCT , AGE UNDETERMINED POSSIBLE LATERAL INFARCT (CITED ON OR BEFORE 22-Dec-2018) ABNORMAL ECG When compared with selected ECG of 24-Apr-2021 22:05, QRS AXIS SHIFTED LEFT no STEMI Confirmed by TARIQ PEREZ MD ([id number]) on 05/15/2024 12:29:22 PM NAME : MICHELLE MITCHELL PID : [id number] : 1980 Gender : Female Race : [...] no STEMI Confirmed by TARIQ PEREZ MD ([id number]) on 05/15/2024 12:29:22 PM Test Reason : Location : 1 : ER ED Overread By : TARIQ PEREZ MD Edited By : TARIQ PEREZ MD Referred By : , Acquired by : LANDON, Normal [facility] Gas and Carbon monoxide pane l (BldV)on 05-15-2024 Base excess Calc (BldV) [Moles/Vol] 0 mmol/L Normal 0-2 [facility] Comment on above: Order Comment: David horton Type: VENOUS BLOOD SPECIMENOrdering Facility: [facility] Address: [address] [place] [id number] Performed By: #### 2 4344-4 ####[facility] [id number] [facility] [id number] [place] [address] Carboxyhemoglobin (BldV) [Mass fraction] 2.5 % High 0.0-2.0 [facility] Comment on above: Order Comment: David horton Type: VENOUS BLOOD SPECIMENOrdering Facility: [facility] Address: [address] [place] [address] Result Comment: Carb oxyhemoglobin Reference Range for Smokers: 2.0-8.0% Performed By: #### 2 4344-4 ####[facility] [id number] [facility] [id number] [address] [address] CO2 (BldV) [Partial pressure] 41 mm[Hg] Low 42-55 [facility] Comment on above: Order Comment: Speci men Type: VENOUS BLOOD SPECIMENOrdering Facility: [facility] Address: [address] [place] [address] Performed By: #### 2 4344-4 ####[facility] [id number] [facility] [id number] [address] CO2 adjusted to patient's actual temperature (BldV) [Partial pressure] Normal [facility] Comment on above: Order Comment: Speci men Type: VENOUS BLOOD SPECIMENOrdering Facility: [facility] Address: [address] [place] [id number] Performed By: #### 2 4344-4 ####[facility] [id number] [facility] [id number] [address] [address] HCO3 (Bld) [Moles/Vol] 25 mmol/L Normal 24-28 [facility] Comment on above: Order Comment: Speci men Type: VENOUS BLOOD SPECIMENOrdering Facility: [facility] Address: [address] [id number] Performed By: #### 2 4344-4 ####[facility]IA [id number] [facility] [id number] [address] [address] Hemoglobin (Bld) [Mass/Vol] 15.4 g/dL Normal 11.5-15.5 [facility] Comment on above: Order Comment: Speci men Type: VENOUS BLOOD SPECIMENOrdering Facility: [facility] Address: [address] [phone] Performed By: #### 2 4344-4 ####[facility] [id number] [facility] [id number] [address] [address] Lactate [Moles/Vol] 1.2 mmol/L Normal 0.5-2.2 [facility] Comment on above: Order Comment: Speci men Type: VENOUS BLOOD SPECIMENOrdering Facility: [facility] Address: [address] [place] [address] Performed By: #### 2 4344-4 ####[facility] [id number] [facility] [id number] [address] [address] Methemoglobin (Bld) [Mass fraction] % Normal 0.0-1.5 [facility] Comment on above: Order Comment: Speci men Type: VENOUS BLOOD SPECIMENOrdering Facility: [facility] Address: [address] [place] [address] Performed By: #### 2 4344-4 ####[facility] [id number] [facility] [id number] [address] [address] O2 THERAPY RA=Room Air Normal [facility] Comment on above: Order Comment: Speci men Type: VENOUS BLOOD SPECIMENOrdering Facility: [facility] Address: [address] [place] [address] Performed By: #### 2 4344-4 ####[facility] [id number] [facility] [id number] [address] [address] Oxygen (BldV) [Partial pressure] 32 mm[Hg] Low 35-45 [facility] Comment on above: Order Comment: Speci men Type: VENOUS BLOOD SPECIMENOrdering Facility: [facility] Address: [address] [place] [address] Performed By: #### 2 4344-4 ####[facility]ORYIA [id number] [facility] [id number] [address] [address] Oxygen adjusted to patient's actual temperature (BldV) [Partial pressure] [facility] Comment on above: Order Comment: Speci men Type: VENOUS BLOOD SPECIMENOrdering Facility: [facility] Address: [address] [place] [address] Performed By: #### 2 4344-4 ####[facility] [id number] [facility]OS[facility] [id number] [address] [address] Oxygen saturation in Venous blood 59 % Low 60-85 [facility] Comment on above: Order Comment: Speci men Type: VENOUS BLOOD SPECIMENOrdering Facility: [facility] Address: [address] [place] [address] Performed By: #### 2 4344-4 ####[facility]ORYCL[facility] [id number] [facility]OS[facility] [id number] [address] [address] Oxyhemoglobin (BldV) [Mass fraction] 57 % Low 60-85 [facility] Comment on above: Order Comment: Speci men Type: VENOUS BLOOD SPECIMENOrdering Facility: [facility] Address: [address] [place] [phone] Performed By: #### 2 4344-4 ####[facility]CL[facility] [id number] [facility] [id number] [address] [address] pH (BldV) 7.39 [pH] Normal 7.32-7.42 [facility] Comment on above: Order Comment: Speci men Type: VENOUS BLOOD SPECIMENOrdering Facility: [facility] Address: [address] [place] [address] Performed By: #### 2 4344-4 ####[facility]ATORYIA [id number] [facility] [id number] [address] [address] pH adjusted to patient's actual temperature (BldV) Normal [facility] Comment on above: Order Comment: Speci men Type: VENOUS BLOOD SPECIMENOrdering Facility: [facility] Address: [address] [phone] Performed By: #### 2 4344-4 ####[facility]ORYCL[facility] [id number] [facility] [id number] [address] [address] Potassium [Moles/Vol] 3.9 mmol/L Normal 3.5-5.0 [facility] Comment on above: Order Comment: Speci men Type: VENOUS BLOOD SPECIMENOrdering Facility: [facility] Address: [address] [id number] Performed By: #### 2 4344-4 ####[facility]ATORYIA [id number] [facility] [id number] [address] [address] HIGH SENSITIVITY TROPONIN T (INITIAL)on 05-15-2024 Troponin T.cardiac High sensitivity method [Mass/Vol] 22 ng/L High <12 [facility] Comment on above: Order Comment: David horton Type: BLOOD SPECIMEN Ordering Facility: [facility] Address: [address] [place] [address] Performed By: #### 5 8410-2 #### [facility] CLIA [id number] [address] HIGH SENSITIVITY TROPONIN T (SECOND)on 05-15-2024 Troponin T.cardiac High sensitivity method [Mass/Vol] 22 ng/L High <12 [facility] Comment on above: Order Comment: David horton Type: BLOOD SPECIMENOrdering Facility: [facility] Address: [address] [place] [address] Performed By: #### L [id number] ####[facility] [id number] [address] HIGH SENSITIVITY TROPONIN T (THIRD) 3 HRS AFTER INITIALon 05-15-2024 Troponin T.cardiac High sensitivity method [Mass/Vol] 24 ng/L High <12 [facility] Comment on above: Order Comment: David horton Type: BLOOD SPECIMENOrdering Facility: [facility] Address: [address] [place] [address] Performed By: #### L [id number] ####[facility] [id number] [address] HISTORY PHYSICALon HISTORY PHYSICAL HNO ID: [id number] Author: DEX WILKINSON MD Service: Family Practice Author Type: Physician Type: H&P Filed: 05/16/2024 08:08 Note Text: HISTORY AND PHYSICAL EXAMINATION - INTERNAL MEDICINE PATIENT NAME: Michelle Mitchell SERVICE DATE: 05/16/2024 SERVICE TIME: 8:05 AM PRIMARY CARE PHYSICIAN: Dex Wilkinson MD ASSESSMENT AND PLAN Principal Problem: Abscess [...] PERMANENT TRANSVENOUS PACEMAKER INSERTION 2006 ICD implant, [facility] ANESTHESIA TUBAL LIGATION/TRANSECTION APPENDECTOMY 05/05/2014 , [...] suicidal ideations Ativan [Lorazepam] Vomiting Azithromycin Intolerance [place] Anaphylaxis [place] Anaphylaxis pickles Fish Anaphylaxis Levofloxacin In D5w Swelling, Itching IV site swollen, ceased after d/c, redness and itching at site Neurontin [Gabapent* Mental Status Change Shellfish Anaphylaxis Tigan [Trimethobenz* Anaphylaxis Ultram [Tram (more content not included)... Normal [facility] NT-proBNP [facility] 03-04 -2025 Natriuretic peptide.B prohormone N-Terminal [Mass/Vol] 2616 pg/mL High <125 [facility] Comment on above: Order Comment: David horton Type: BLOOD SPECIMEN Ordering Facility: [facility] Address: [address] [place] [address] Performed By: #### 5 8410-2 #### [facility] CLIA [id number] [address] STATES OF [facility] PT panel Coag (PPP)on 2024 INR Coag (PPP) [Relative time] 1.1 {INR} Normal 0.9-1.3 [facility] Comment on above: Order Comment: David horton Type: BLOOD SPECIMENOrdering Facility: [facility] Address: [address] [place] [address] Result Comment: Nancy min K Antagonist (VKA) Therapeutic Range: INR 2 to 3 (Target INR of 2.5) Note: For patients treated with VKA drugs, such as warfarin, the [place] [employer]icians 2012 Guideline recommends [...] Chest 2012, 141:7S-47S Gia RA, et al. [facility] 2017, 70: 252-289 Performed By: #### 3 4528-0, 60625-9 ####[facility]ORYCLIA [id number] [address] [place] PT Coag (PPP) [Time] 11.7 s Normal 9.7-13.0 [facility] Comment on above: Order Comment: David horton Type: BLOOD SPECIMENOrdering Facility: [facility] Address: [address] [place] [address] Performed By: #### 3 4528-0, 09087-7 ####[facility]ATORYCLIA [id number] [place] [address] [place] XR CHEST 1V FRONTAL [...] Other: . IMPRESSION: Bilateral consolidation is suspected. Animal Keeper Head: KIM Transcribe Date/Time: May 15 2024 12:02P Dictated by : BOGDAN LUNA MD This examination was interpreted and the report reviewed and electronically signed by: BOGDAN LUNA MD on May 15 2024 12:05PM EST [id number] Normal [facility] aPTT PPPon 05-15-2024 aPTT Coag (PPP) [Time] 28.2 s Normal 23.0-32.4 [facility] Comment on above: Order Comment: Speci men Type: BLOOD SPECIMENOrdering Facility: [facility] Address: [address] [place] [address] Performed By: #### 3 4528-0, 83446-9 ####[facility]ORYCLIA [id number] [place] [address] [facility] Emergency Department Summary on 05-12-2024 Emergency Department Summary Normal [facility] Pacemaker Checkon 03-28-2024 Pacemaker Check Normal [facility] CBC (INCLUDES DIFF/PLT)on Basophils (Bld) [#/Vol] 0.056 10*3/uL Normal 0-200 [facility] Comment on above: Performed By: #### 1 0231, 7137, 5616, 1005, 899, 6399 #### [facility] of [place] [address] [place] Supervisor: Gage Viramontes MD Basophils/100 WBC (Bld) 0.5 % Normal [facility] Comment on above: Performed By: #### 1 0231, 7137, 5616, 1005, 899, 6399 #### [facility] of [address], [address] [place] [address] [place] Supervisor: Gage Viramontes MD Eosinophils (Bld) [#/Vol] 0.122 10*3/uL Normal 15-500 [facility] Comment on above: Performed By: #### 1 0231, 7137, 5616, 1005, 899, 6399 #### [facility] of [place] [address] [place] Supervisor: Gage Viramontes MD Eosinophils/100 WBC (Bld) 1.1 % Normal [facility] Comment on above: Performed By: #### 1 0231, 7137, 5616, 1005, 899, 6399 #### [facility] of [place] [address] [place] Supervisor: Gage Viramontes MD Erythrocyte distribution width (RBC) [Ratio] 11.5 % Normal 11.0-15.0 [facility] Comment on above: Performed By: #### 1 0231, 7137, 5616, 1005, 899, 6399 #### [facility] of [place] [address] [place] Supervisor: Gage Viramontes MD Hematocrit (Bld) [Volume fraction] 43.8 % Normal 35.0-45.0 [facility] Comment on above: Performed By: #### 1 0231, 7137, 5616, 1005, 899, 6399 #### [facility] of [place] [address] [place] Supervisor: Gage Viramontes MD Hemoglobin (Bld) [Mass/Vol] 14.5 g/dL Normal 11.7-15.5 [facility] Comment on above: Performed By: #### 1 0231, 7137, 5616, 1005, 899, 6399 #### [facility] [place] [address] [place] Supervisor: Gage Viramontes MD Lymphocytes (Bld) [#/Vol] 1.021 10*3/uL Normal 850-3900 [facility] Comment on above: Performed By: #### 1 0231, 37, 5616, 1005, 899, 6399 #### [facility] of [place] [address] [place] Supervisor: Gage Viramontes MD Lymphocytes/100 WBC (Bld) 9.2 % Normal [facility] Comment on above: Performed By: #### 1 023, 7136, 561, 1005, 899, 6399 #### [facility] of [place] [address] [place] Supervisor: Gage Viramontes MD MCH (RBC) [Entitic mass] 31.7 pg Normal 27.0-33.0 [facility] Comment on above: Performed By: #### 1 0231, 71, 5616, 1005, 899, 6399 #### [facility] [place] [address] [place] Supervisor: Gage Viramontes MD MCHC (RBC) [Mass/Vol] 33.1 g/dL Normal 32.0-36.[address] [facility] Comment on above: Result Comment: For adults, a slight decrease in the calculated MCHC value (in the range of 30 to 32 g/dL) is most likely not clinically significant; however, it should be interpreted with caution in correlation with other red cell parameters and the patient's clinical condition. Performed By: #### 1 0231, 7137, 5616, 1005, 899, 6399 #### [facility] [address] [place] Supervisor: Gage Viramontes MD MCV (RBC) [Entitic vol] 95.8 fL Normal 80.0-100.0 [facility] Comment on above: Performed By: #### 1 0231, 7137, 5616, 1005, 899, 6399 #### [facility] of [place] [address] [place] Supervisor: Gage Viramontes MD Monocytes (Bld) [#/Vol] 0.522 10*3/uL Normal 200-950 [facility] Comment on above: Performed By: #### 1 0231, 7137, 5616, 1005, 899, 6399 #### [facility] of [place] [address] [place] Supervisor: Gage Viramontes MD Monocytes/100 WBC (Bld) 4.7 % Normal [facility] Comment on above: Performed By: #### 1 0231, 7137, 5616, 1005, 899, 6399 #### [facility] of [place] [address] [place] Supervisor: Gage Viramontes MD Neutrophils (Bld) [#/Vol] 9.38 10*3/uL High 0041-7864 [facility] Comment on above: Performed By: #### 1 0231, 7137, 5616, 1005, 899, 6399 #### [facility] of [place] [address] [place] Supervisor: Gage Viramontes MD Neutrophils/100 WBC (Bld) 84.5 % Normal [facility] Comment on above: Performed By: #### 1 0231, 7137, 5616, 1005, 899, 6399 #### [facility] of [place] [address] [place] Supervisor: Gage Viramontes MD Platelet mean volume (Bld) [Entitic vol] 12.1 fL Normal 7.5-12.5 [facility] Comment on above: Performed By: #### 1 0231, 7137, 5616, 1005, 899, 6399 #### [facility] of [place] [address] [place] Supervisor: Gage Viramontes MD Platelets (Bld) [#/Vol] 270 10*3/uL Normal 140-400 [facility] Comment on above: Performed By: #### 1 0231, 7137, 5616, 1005, 899, 6399 #### [facility] of [address], [address] [place] [address] [place] Supervisor: Gage Viramontes MD RBC (Bld) [#/Vol] 4.57 10*6/uL Normal 3.80-5.10 [facility] Comment on above: Performed By: #### 1 0231, 7137, 5616, 1005, 899, 6399 #### [facility] of [place] [address] [place] Supervisor: Gage Viramontes MD WBC (Bld) [#/Vol] 11.1 10*3/uL High 3.8-10.8 [facility] Comment on above: Performed By: #### 1 0231, 7137, 5616, 1005, 899, 6399 #### [facility] of [place] [address] [place] Supervisor: Gage Viramontes MD [facility] METABOLIC [facility] 01-06-2024 Albumin [Mass/Vol] 5.0 g/dL Normal 3.6-5.1 [facility] Comment on above: Performed By: #### 1 0231, 7137, 5616, 1005, 899, 6399 #### [facility] of [place] [address] [place] Supervisor: Gage Viramontes MD Albumin/Globulin [Mass ratio] 1.9 {ratio} Normal 1.0-2.5 [facility] Comment on above: Performed By: #### 1 0231, 7137, 5616, 1005, 899, 6399 #### [facility] of [address] [place] [address] [place] Supervisor: Gage Viramontes MD ALP [Catalytic activity/Vol] 93 U/L Normal 31-125 [facility] Comment on above: Performed By: #### 1 0231, 7137, 5616, 1005, 899, 6399 #### [facility] [place] [address] [place] Supervisor: Gage Viramontes MD ALT [Catalytic activity/Vol] 27 U/L Normal 6-29 [facility] Comment on above: Performed By: #### 1 0231, 37, 5616, 1005, 899, 6399 #### [facility] [place] [address] [place] Supervisor: Gage Viramontes MD AST [Catalytic activity/Vol] 21 U/L Normal 10-30 [facility] Comment on above: Performed By: #### 1 0231, 7136, 561, 1005, 899, 6399 #### [facility] [place] [address] [place] Supervisor: Gage Viramontes MD Bilirubin [Mass/Vol] 0.6 mg/dL Normal 0.2-1.2 [facility] Comment on above: Performed By: #### 1 0231, 7136, 561, 1005, 899, 6399 #### [facility] [place] [address] [place] Supervisor: Gage Viramontes MD BUN/CREATININE RATIO SEE NOTE: Normal 6-22 [facility] Comment on above: Result Comment: Not Reported: BUN and Creatinine are within reference range. Performed By: #### 1 0231, 7137, 5616, 1005, 899, 6399 #### [facility] [place] [address] [place] Supervisor: Gage Viramontes MD Calcium [Mass/Vol] 9.8 mg/dL Normal 8.6-10.2 [facility] Comment on above: Performed By: #### 1 0231, 7137, 5616, 1005, 899, 6399 #### [facility] of [address], [address] [place] [address] [place] Supervisor: Gage Viramontes MD Chloride [Moles/Vol] 108 mmol/L Normal 98-110 [facility] Comment on above: Performed By: #### 1 0231, 7137, 5616, 1005, 899, 6399 #### [facility] of [address], [address] [place] [address] [place] Supervisor: Gage Viramontes MD CO2 [Moles/Vol] 22 mmol/L Normal 20-32 [facility] Comment on above: Performed By: #### 1 0231, 7137, 5616, 1005, 899, 6399 #### [facility] of [place] [address] [place] Supervisor: Gage Viramontes MD Creatinine [Mass/Vol] 0.77 mg/dL Normal 0.50-0.[address] [facility] Comment on above: Performed By: #### 1 0231, 7137, 5616, 1005, 899, 6399 #### [facility] of [place] [address] [place] Supervisor: Gage Viramontes MD GFR/1.73 sq M.predicted among non-blacks MDRD (S/P/Bld) [Vol rate/Area] 97 mL/min/{1.73_m2} Normal > OR = 60 [facility] Comment on above: Performed By: #### 1 0231, 7137, 5616, 1005, 899, 6399 #### [facility] of [address], [address] [place] [address] [place] Supervisor: Gage Viramontes MD Globulin (S) [Mass/Vol] 2.6 g/dL Normal 1.9-3.7 [facility] Comment on above: Performed By: #### 1 0231, 7137, 5616, 1005, 899, 6399 #### [facility] of [address], [address] [place] [address] [place] Supervisor: Gage Viramontes MD Glucose [Mass/Vol] 82 mg/dL Normal 65-99 [facility] Comment on above: Result Comment: Fasting reference interval Performed By: #### 1 0231, 7137, 5616, 1005, 899, 6399 #### [facility] [place] [address] [employer] Supervisor: Gage Viramontes MD Potassium [Moles/Vol] 3.9 mmol/L Normal 3.5-5.[address] [facility] Comment on above: Performed By: #### 1 0231, 7137, 5616, 1005, 899, 6399 #### [facility] [place] [address] [employer] [place] Supervisor: Gage Viramontes MD Protein [Mass/Vol] 7.6 g/dL Normal 6.1-8.1 [facility] Comment on above: Performed By: #### 1 0231, 7137, 5616, 1005, 899, 6399 #### [facility] [place] [address] [employer] [place] Supervisor: Gage Viramontes MD Sodium [Moles/Vol] 138 mmol/L Normal 135-146 [facility] Comment on above: Performed By: #### 1 0231, 7137, 5616, 1005, 899, 6399 #### [facility] [place] [address] [employer] [place] Supervisor: Gage Viramontes MD Urea nitrogen [Mass/Vol] 12 mg/dL Normal 7-25 [facility] Comment on above: Performed By: #### 1 0231, 7137, 5616, 1005, 899, 6399 #### [facility] [place] [address] [employer] [place] Supervisor: Gage Viramontes MD FSH AND LHon 01-05-2023 FSH 3.7 mIU/mL Normal [facility] Comment on above: Result Comment: Refe rence Range Follicular Phase 2.5-10.2 Mid-cycle Peak 3.1-17.7 Luteal Phase 1.5- 9.1 Postmenopausal 23.0-116.3 Performed By: #### 1 0231, 7137, 5616, 1005, 899, 6399 #### [facility] [place] [address] [employer] [place] Supervisor: Gage Viramontes MD LH 3.0 mIU/mL Normal [facility] Comment on above: Result Comment: Refe rence Range Follicular Phase 1.9-12.5 Mid-Cycle Peak 8.7-76.3 Luteal Phase 0.5-16.9 Postmenopausal 10.0-54.7 Performed By: #### 1 0231, 7137, 5616, 1005, 899, 6399 #### [facility] [place] [address] [employer] [place] Supervisor: Gage Viramontes MD IRON, TIBC AND FERRITIN PANE Ebenezer 01-05-2023 % SATURATION 37 % (calc) Normal 16-45 [facility] Comment on above: Performed By: #### 1 0231, 7137, 5616, 1005, 899, 6399 #### [facility] [place] [address] [employer] [place] Supervisor: Gage Viramontes MD Ferritin [Mass/Vol] 73 ng/mL Normal 16-232 [facility] Comment on above: Performed By: #### 1 0231, 7137, 5616, 1005, 899, 6399 #### [facility] [place] [address] [employer] [place] Supervisor: Gage Viramontes MD IRON BINDING CAPACITY 340 mcg/dL (calc) Normal 250-450 [facility] Comment on above: Performed By: #### 1 0231, 7137, 5616, 1005, 899, 6399 #### [facility] [place] [address] [employer] [place] Supervisor: Gage Viramontes MD IRON, TOTAL 125 mcg/dL Normal 40-190 [facility] Comment on above: Performed By: #### 1 0231, 7137, 5616, 1005, 899, 6399 #### [facility] [address], [address] [place] [address] [employer]arch Supervisor: Gage Viramontes MD TEST AUTHORIZATIONon 024 CLIENT CONTACT: CRYSTAL Normal [facility] Comment on above: Performed By: #### 1 0231, 7137, 5616, 1005, 899, 6399 #### [facility] [address], [address] [place] [address] [employer] Supervisor: Gage Viramontes MD COMMENT Normal [facility] Comment on above: Result Comment: Plea se have the ordering physician or his or her authorized reimbursement representative sign a copy of this report and promptly return it by faxing it to: [phone] or by returning the form to your interactive media designer. Performed By: #### 1 0231, 7136, 561, 1005, 899, 6399 #### [facility] [address], [address] [place] [address] [employer] Supervisor: Gage Viramontes MD REPORT ALWAYS MESSAGE SIGNATURE Normal [facility] Comment on above: Result Comment: The laboratory testing on this patient was verbally requested or confirmed by the ordering physician or his or her authorized reimbursement representative after contact with an employee of [employer]. Federal regulations require that we maintain on file written authorization for all laboratory testing. Accordingly we are asking that the ordering physician or his or her authorized reimbursement representative sign a copy of this report and promptly return it to the senior private client advisor. Signature: _ Performed By: #### 1 0231, 7137, 5616, 1005, 899, 6399 #### [facility] [address], [address] [place] [address] [employer] Supervisor: Gage Viramontes MD TEST CODE: [id number] Normal [facility] Comment on above: Performed By: #### 1 0231, 7137, 5616, 1005, 899, 6399 #### [facility] [address], [address] [place] [address] [employer] Supervisor: Gage Viramontes MD TEST NAME: CMP Normal [facility] Comment on above: Performed By: #### 1 0231, 7137, 5616, 1005, 899, 6399 #### [facility] [address], [address] [place] [address] [employer]arch Supervisor: Gage Viramontes MD TSHon 01-06-2024 TSH Qn 0.95 m[IU]/L Normal [facility] Comment on above: Result Comment: Refe rence Range > or = 20 Years 0.40-4.50 Ranges First trimester 0.26-2.66 Second trimester 0.55-2.73 Third trimester 0.43-2.91 Performed By: #### 1 0231, 7137, 5616, 1005, 899, 6399 #### [facility] [address], [address] [place] [address] [employer] Supervisor: Gage Viramontes MD Pacemaker Checkon 11-23-2023 Pacemaker Check Normal [facility] Emergency Department Summary on 11-02-2023 Emergency Department Summary Normal [facility] Lactic Acidon 11-02-2023 Lactate [Moles/Vol] 1.0 mmol/L Normal 0.4-1.9 [facility] Comment on above: Order Comment: Y Performed By: #### L 503.6005 ####[facility] [address] [place], [place], [address] Abdomen/Pelvis W IV Cont ONL Yon 11-01-2023 Abdomen/Pelvis W IV Cont ONLY Normal [facility] CBC W/Diff, Automatedon 10-13 SMEAR COMMENT SCANNED Normal [facility] Comment on above: Performed By: #### L 500.4050, L700.6800, L100.0100 ####[facility] [address] [place], [address] Comprehensive Metabolic Prof ilon 11-01-2023 Albumin [Mass/Vol] 4.0 g/dL Normal 3.2-5.0 [facility] Comment on above: Performed By: #### L 500.4050, L700.6800, L100.0100 ####[facility] [address] [place], [address] Albumin/Globulin [Mass ratio] 1.2 {ratio} Normal 0.9-2.4 [facility] Comment on above: Performed By: #### L 500.4050, L700.6800, L100.0100 ####[facility] [address] [place], [address] ALK P 90 U/L Normal 45-117 [facility] Comment on above: Performed By: #### L 500.4050, L700.6800, L100.0100 ####[facility] [address] [place], [address] ALT [Catalytic activity/Vol] 24 U/L Normal 13-56 [facility] Comment on above: Performed By: #### L 500.4050, L700.6800, L100.0100 ####[facility] [address] [place], [address] AST [Catalytic activity/Vol] 19 U/L Normal 15-37 [facility] Comment on above: Performed By: #### L 500.4050, L700.6800, L100.0100 ####[facility] [address] [place], [address] Bilirubin [Mass/Vol] 0.30 mg/dL Normal 0.20-1.00 [facility] Comment on above: Result Comment: For patients on eltrombopag therapy, use of Dimension [place] TBIL is not recommended. Performed By: #### L 500.4050, L700.6800, L100.0100 ####[facility] [address] [place], [address] BUN/CRE 9.7 RATIO Low 10-20 [facility] Comment on above: Performed By: #### L 500.4050, L700.6800, L100.0100 ####[facility] [address] [place], [address] CA,Total 9.5 mg/dL Normal 8.5-10.1 [facility] Comment on above: Performed By: #### L 500.4050, L700.6800, L100.0100 ####[facility] [address] [place], [address] Chloride [Moles/Vol] 107 mmol/L Normal 98-107 [facility] Comment on above: Performed By: #### L 500.4050, L700.6800, L100.0100 ####[facility] [address] [place], [address] CO2 [Moles/Vol] 26.0 mmol/L Normal 21.0-32.0 [facility] Comment on above: Performed By: #### L 500.4050, L700.6800, L100.0100 ####[facility] [address] [place], [address] Creatinine [Mass/Vol] 0.83 mg/dL Normal 0.55-1.02 [facility] Comment on above: Result Comment: The validity of the calculated GFR GFRAA in patients over70 years has not been determined. Clinical correlation isessential. Performed By: #### L 500.4050, L700.6800, L100.0100 ####[facility] [address] [place], [address] ECRCL 74.69 ml/min Normal [facility] Comment on above: Performed By: #### L 500.4050, L700.6800, L100.0100 ####[facility] [address] [place], [address] EST GFR - AA 97 mL/min Normal >60 [facility] Comment on above: Result Comment: Afri can Anguillan GFR Calc Performed By: #### L 500.4050, L700.6800, L100.0100 ####[facility] [address] [place], [address] GAP 6 Normal 5-15 [facility] Comment on above: Performed By: #### L 500.4050, L700.6800, L100.0100 ####[facility] [address] [place], [address] GFR/1.73 sq M.predicted among non-blacks MDRD (S/P/Bld) [Vol rate/Area] 80 mL/min/{1.73_m2} Normal >60 [facility] Comment on above: Result Comment: Non- GFR Calc Performed By: #### L 500.4050, L700.6800, L100.0100 ####[facility] [address] [place], [address] Globulin (S) [Mass/Vol] 3.3 g/dL Normal 2.2-4.2 [facility] Comment on above: Performed By: #### L 500.4050, L700.6800, L100.0100 ####[facility] [address] [place], [address] Glucose [Mass/Vol] 96 mg/dL Normal 74-106 [facility] Comment on above: Performed By: #### L 500.4050, L700.6800, L100.0100 ####[facility] [address] [place], [address] Potassium [Moles/Vol] 3.2 mmol/L Low 3.5-5.1 [facility] Comment on above: Performed By: #### L 500.4050, L700.6800, L100.0100 ####[facility] [address] [place], [address] Sodium [Moles/Vol] 139 mmol/L Normal 136-145 [facility] Comment on above: Performed By: #### L 500.4050, L700.6800, L100.0100 ####[facility] [address] [place], [address] T PROT 7.3 g/dL Normal 6.4-8.2 [facility] Comment on above: Performed By: #### L 500.4050, L700.6800, L100.0100 ####[facility] [address] [place], [address] Urea nitrogen [Mass/Vol] 8 mg/dL Normal 7-18 [facility] Comment on above: Performed By: #### L 500.4050, L700.6800, L100.0100 ####[facility] [address] [place], [address] Final Surgical Pathology Rep [facility] 11-01-2023 Final Surgical Pathology Report . Pathology Reports Accession: Collected Date/Time: Received Date/Time: Pathologist: [id number] 10/31/2023 10:23 EDT 10/31/2023 14:26 EDT MD [...] All parts labelled with patient name and [id number] A. Received in formalin labeled "terminal ileum" are 2 maharaj-pink tissue fragments each measuring 0.2 cm. TS-1 B. Received in formalin labeled "right and left colon" are multiple maharaj-pink tissue fragments aggregating 1.3 x 0.2 x 0.2 cm. TS-1 Flakita Rodrigez, Grossing Entry Rep/ Dr. Nabor Jarrett, Pathologist Performed by Flakita Rodrigez MICROSCOPIC DESCRIPTION: The microscopic examination is performed, except in the case of Gross Only. Electronically Signed by Pathology Report verified by [facility] KAYLYN PELAYO MD Sign out Date: 11/01/2023 09:26 Performing Lab: [facility], [facility] [address] [place] [address] Pathology Dept Disclaimer If ancillary studies were utilized, the following Laboratory Developed Test (LDT) disclaimer will apply: Under CLIA requirements, [facility] is qualified to perform high complexity testing. For all ancillary stains, positive and negative controls stain appropriately. Performance characteristics of immunohistochemical and chromogenic in-situ hybridization tests have been determined by [facility]. These tests are used for clinical purposes, They should not be regarded as investigational or for research. Normal [facility] ([place]) Lipaseon 11-01-2023 Lipase [Catalytic activity/Vol] 32 U/L Normal 13-75 [facility] Comment on above: Result Comment: Liam rader note:LIPASE revised reference range effective 22.New Lipase methodology. Expected to produce lower valuesthan the previous assay method.NEW Reference Range: 13 - 75 U/L Performed By: #### L 501.2450 ####[facility] [address] [place], [place], [id number] ,Serum,hCG Quali.on 11-01-2023 HCG, SERUM QUAL Negative Normal [facility] Comment on above: Performed By: #### L 500.4050, L700.6800, L100.0100 ####[facility] [address] [place], [place], [id number] Urinalysis, Completeon 10-31 BACTERIA 2+ /hpf Normal None Seen [facility] Comment on above: Order Comment: CLEAN CATCH Performed By: #### L 400.0001 ####[facility] [address] [place], [place], [id number] RBC 0-5 SEEN Normal 0-5 [facility] Comment on above: Order Comment: CLEAN CATCH Performed By: #### L 400.0001 ####[facility] [address] [place], [address] YEAST 2+ /hpf Normal None Seen [facility] Comment on above: Order Comment: CLEAN CATCH Performed By: #### L 400.0001 ####[facility] [address] [place], [address] EPI,SQUAMOUS 0-5 SEEN Normal 5-10 [facility] Comment on above: Order Comment: CLEAN CATCH Performed By: #### L 400.0001 ####[facility] [address] [place], [address] Mucus Ql (Urine sed) 0 SEEN Normal [facility] Comment on above: Order Comment: CLEAN CATCH Performed By: #### L 400.0001 ####[facility] [address] [place], [address] WBC 0 SEEN Normal 0-5 [facility] Comment on above: Order Comment: CLEAN CATCH Performed By: #### L 400.0001 ####[facility] [address] [place], [address] ONC Echo Completeon 09-13-19 24 ONC Echo Complete Normal [facility] Absolute lymphocyte countOrd ered By: Suman Lowe on 07-04-2023 Lymphocytes Auto (Unsp spec) [#/Vol] 1.65 10*3/uL 0.83-4.51 [facility] Automated lymphocyte count a s percentage of total leukocytesOrdered By: Suman Lowe on 07-04-2023 Lymphocytes/100 WBC Auto (Unsp spec) 19.6 % 19-41 [facility] Basophil percentageOrdered B y: Suman Lowe on 07-04-2023 Basophil percentage 0-5 SEEN /hpf 0-5 [facility] Basophils/100 WBC (Bld) 0.8 % 0-1 [facility] Bilirubin [Mass/Vol] 0.60 mg/dL 0.20-1.00 [facility] Comment on above: For patients on eltr ombopag therapy, use of Dimension [place] TBIL is not recommended. Chloride [Moles/Vol] 107 mmol/L 98-107 [facility] Eosinophils/100 WBC (Bld) 1.5 % 0-5 [facility] Glucose [Mass/Vol] 105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 waiting to hear back from the doctors. 1605 Called into pt's room requesting pain medicine or to see "if anything else was ordered." Educated pt regarding Tylenol ordered and the Lidocaine patch, but that was it. Pt stated, that doctor lied to me. They said if I stayed one more day that I would get pain relieve; all they ordered was Tylenol and a patch. The patch does not do anything for me." Pt previously refused the Lidocaine patch. Pt started to cry. Pt also stated "I miss my family, I haven't showered in a couple days." I educated pt that we could get her a shower. Pt stated, " I don't have underwear." Educated pt that we have mesh panties that we can give her. Pt stated "I have on the same pants on since I got here." Educated pt that we could provide her with hospital pj bottoms. Attempting to provide everything the pt needs. This note was completed by: Kendal Strange Normal [facility] Troponin Ton 04-26-2021 Troponin T.cardiac [Mass/Vol] 0.023 ug/L Normal 0.000-0.02 9 [facility] Comment on above: Performed By: #### C KCKMB, SAULO #### [facility] [address] [place] [address] CBC and Differentialon 04-25 Abs Baso 0.06 k/uL Normal <0.11 [facility] Comment on above: Performed By: #### T NT, CBCDIF, CMP ####[address] Abs Glades 0.72 k/uL Normal <0.87 [facility] Comment on above: Performed By: #### T NT, CBCDIF, CMP ####[address] Abs Neut 7.11 k/uL Normal 1.45-7.50 [facility] Comment on above: Performed By: #### T NT, CBCDIF, CMP ####[place] [address] Absolute nRBC <0.01 Normal <0.01 [facility] Comment on above: Performed By: #### T NT, CBCDIF, CMP ####[address] Basophils/100 WBC (Bld) 0.6 % Normal [facility] Comment on above: Performed By: #### T NT, CBCDIF, CMP ####[place] [address] DTYPE Auto Diff Normal [facility] Comment on above: Performed By: #### T NT, CBCDIF, CMP ####[place] [address] Eosinophils (Bld) [#/Vol] 0.10 10*3/uL Normal <0.46 [facility] Comment on above: Performed By: #### T NT, CBCDIF, CMP ####[address] Eosinophils/100 WBC (Bld) 1.0 % Normal [facility] Comment on above: Performed By: #### T NT, CBCDIF, CMP ####[place] [address] Erythrocyte distribution width (RBC) [Ratio] 13.5 % Normal 11.5-15.0 [facility] Comment on above: Performed By: #### T NT, CBCDIF, CMP ####[place] [phone] Hematocrit (Bld) [Volume fraction] 38.0 % Normal 36.0-46.0 [facility] Comment on above: Performed By: #### T NT, CBCDIF, CMP ####[place] [phone] Hemoglobin (Bld) [Mass/Vol] 11.9 g/dL Normal 11.5-15.5 [facility] Comment on above: Performed By: #### T NT, CBCDIF, CMP ####[place] [phone] Lymphocytes (Bld) [#/Vol] 1.73 10*3/uL Normal 1.00-4.00 [facility] Comment on above: Performed By: #### T NT, CBCDIF, CMP ####[place] [phone] Lymphocytes/100 WBC (Bld) 17.8 % Normal [facility] Comment on above: Performed By: #### T NT, CBCDIF, CMP ####[place] [phone] MCH 30.7 pG Normal 26.0-34.0 [facility] Comment on above: Performed By: #### T NT, CBCDIF, CMP ####[phone] MCHC (RBC) [Mass/Vol] 31.3 g/dL Normal 30.5-36.0 [facility] Comment on above: Performed By: #### T NT, CBCDIF, CMP ####[place] [phone] MCV (RBC) [Entitic vol] 98.2 fL Normal 80.0-100.0 [facility] Comment on above: Performed By: #### T NT, CBCDIF, CMP ####[place] [phone] Monocytes/100 WBC (Bld) 7.4 % Normal [facility] Comment on above: Performed By: #### T NT, CBCDIF, CMP ####[place] [phone] Neutrophils/100 WBC (Bld) 73.2 % Normal [facility] Comment on above: Performed By: #### T NT, CBCDIF, CMP ####[place] [phone] NRBCs 0.0 /100 WBC Normal 0 [facility] Comment on above: Performed By: #### T NT, CBCDIF, CMP ####[place] [phone] Platelet mean volume (Bld) [Entitic vol] 12.5 fL Normal 9.0-12.7 [facility] Comment on above: Performed By: #### T NT, CBCDIF, CMP ####[place] [phone] Platelets (Bld) [#/Vol] 192 10*3/uL Normal 150-400 [facility] Comment on above: Performed By: #### T NT, CBCDIF, CMP ####[place] [phone] RBC (Bld) [#/Vol] 3.87 10*6/uL Low 3.90-5.20 [facility] Comment on above: Performed By: #### T NT, CBCDIF, CMP ####[place] [phone] WBC (Bld) [#/Vol] 9.72 10*3/uL Normal 3.70-11.00 [facility] Comment on above: Performed By: #### T NT, CBCDIF, CMP ####[place] [phone] CK, Total and CKMBon 022 CK [Catalytic activity/Vol] 65 U/L Normal 30-220 [facility] Comment on above: Performed By: #### T NT, CKCKMB ####[address] [phone] CK MB % CK MB % not reported with CK <100 U/L. Normal 0.0-4.0 [facility] Comment on above: Performed By: #### T NT, CKCKMB ####[address] [phone] MB 3.5 ng/mL Normal 0.0-8.8 [facility] Comment on above: Performed By: #### T NT, CKCKMB ####[address] [phone] CONSULTon 04-25-2021 CONSULT HNO ID: [id number] Author: Gavino Zaragoza MD Service: Cardiovascular Medicine Author Type: Physician Type: Consults Filed: 04/25/2021 6:10 PM Note Text: [facility]ARD[facility]ICINE CONSULT NOTE (Template ID [id number]) Michelle Mitchell [id number] PRIMARY SERVICE: Internal Medicine CONSULTING SERVICE: Cardiovascular [...] had fluid in her lungs. In the [place] ED noted marginally elevated high sensitivity troponin, concerns for NSTEMI, therefore was transferred to [facility] for further evaluation of symptoms. 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 Developed [...] PERMANENT TRANSVENOUS PACEMAKER INSERTION 2006 ICD implant, [facility] - ANESTHESIA TUBAL LIGATION/TRANSECTION - APPENDECTOMY [...] mL (BD (more content not included)... Normal [facility] Comp Metabolic Panelon 04-25 Albumin [Mass/Vol] 4.1 g/dL Normal 3.5-5.0 [facility] Comment on above: Performed By: #### T NT, CBCDIF, CMP ####[facility] [place], [place] [phone] ALP [Catalytic activity/Vol] 131 U/L High 34-123 [facility] Comment on above: Performed By: #### T NT, CBCDIF, CMP ####[place] [phone] ALT [Catalytic activity/Vol] 30 U/L Normal 0-45 [facility] Comment on above: Performed By: #### T NT, CBCDIF, CMP ####[place] [phone] Anion gap [Moles/Vol] 12 mmol/L Normal 9-18 [facility] Comment on above: Performed By: #### T NT, CBCDIF, CMP ####[place] [phone] AST [Catalytic activity/Vol] 26 U/L Normal 7-40 [facility] Comment on above: Performed By: #### T NT, CBCDIF, CMP ####[place] [phone] Bilirubin [Mass/Vol] 1.0 mg/dL Normal 0.2-1.3 [facility] Comment on above: Performed By: #### T NT, CBCDIF, CMP ####[place] [phone] Calcium [Mass/Vol] 9.1 mg/dL Normal 8.5-10.5 [facility] Comment on above: Performed By: #### T NT, CBCDIF, CMP ####[place] [phone] Chloride [Moles/Vol] 103 mmol/L Normal 98-110 [facility] Comment on above: Performed By: #### T NT, CBCDIF, CMP ####[place] [phone] CO2 [Moles/Vol] 23 mmol/L Normal 23-32 [facility] Comment on above: Performed By: #### T NT, CBCDIF, CMP ####[place] [phone] Creatinine [Mass/Vol] 0.71 mg/dL Normal 0.70-1.40 [facility] Comment on above: Performed By: #### T NT, CBCDIF, CMP ####[address] [phone] eGFR- Amer. >60 Normal >59 [facility] Comment on above: Performed By: #### T NT, CBCDIF, CMP ####[address] [phone] eGFR-All Other Races >60 Normal >59 [facility] Comment on above: Result Comment: eGFR [...] Performed By: #### T NT, CBCDIF, CMP ####[place] [phone] Glucose [Mass/Vol] 92 mg/dL Normal 65-100 [facility] Comment on above: Performed By: #### T NT, CBCDIF, CMP ####[address] [phone] Potassium [Moles/Vol] 3.7 mmol/L Normal 3.5-5.0 [facility] Comment on above: Performed By: #### T NT, CBCDIF, CMP ####[place] [phone] Protein [Mass/Vol] 6.6 g/dL Normal 6.0-8.4 [facility] Comment on above: Performed By: #### T NT, CBCDIF, CMP ####[place] [phone] [place], [place] [phone] Sodium [Moles/Vol] 138 mmol/L Normal 132-148 [facility] Comment on above: Performed By: #### T NT, CBCDIF, CMP ####[place] [id number] [place], [place] [phone] Urea nitrogen [Mass/Vol] 4 mg/dL Low 8-25 [facility] Comment on above: Performed By: #### T NT, CBCDIF, CMP ####[place] [phone] [place], [place] [phone] HISTORY PHYSICALon HISTORY PHYSICAL HNO ID: [id number] Author: Aj Mullins MD Service: Hospital Medicine Author Type: Physician Type: HANDP Filed: 04/25/2021 5:40 PM Note Text: INTERNAL MEDICINE HANDP EXAMINATION SERVICE DATE: 04/25/2021 SERVICE TIME: 8:11 AM PRIMARY CARE PHYSICIAN: Dex Wilkinson MD Subjective CHIEF COMPLAINT: Chest pain and [...] It's of pressure sensation feeling like sandra elephheraclio is sitting on my chest" and exacerbated by deep inspiration and moving in her bed. No relieving factors were identified. Her symptoms also included dizziness, headache, right jaw pain, and nausea without vomiting. She otherwise denies palpitations, bilateral LE swelling, feeling of hotness, chills, and diarrhea. She works in [employer]. She used to be a smoker of [...] patient was then transferred and admitted to [facility] for further evaluation and management. PAST MEDICAL [...] PERMANENT TRANSVENOUS PACEMAKER INSERTION 2006 ICD implant, [facility] - ANESTHESIA TUBAL LIGATION/TRANSECTION - APPENDECTOMY 05/05/2014 , lap - BREAST LUMPECTOMY HX Left 1998 with radiation - CHOLECYSTECTOMY HX 08/2010 lap [...] Reported HOCM, (more content not included)... Normal [facility] Hemoglobin A1con 04-25-2021 Glucose [Mass/Vol] 103 mg/dL Normal [facility] Comment on above: Result Comment: eAG: (Estimated average glucose) is a calculated value from HgbA1c and is reimbursement representative of the average blood glucose level in the last 2-3 month period. Performed By: #### T SH #### [facility] [address] [place] [address] #### HBA1C #### [facility] [address] [place], [place] [address] HbA1c (Bld) [Mass fraction] 5.2 % Normal 4.3-5.6 [facility] Comment on above: Result Comment: Amer [place] Diabetes Association guidelines indicate that patients with HgbA1c in the range 5.7-6.4% are at increased risk for development of diabetes, and intervention by lifestyle modification may be beneficial. HgbA1c greater or equal to 6.5% is considered diagnostic of diabetes. Performed By: #### T SH #### [facility] [address] [place] [address] #### HBA1C #### [facility] [address] [place] [phone] NT Pro BNPon 04-25-2021 PRO B Natr Peptide 1979 pg/mL High <125 [facility] Comment on above: Performed By: #### N TBNP #### [place] [phone] NURSING PROGon 04-25-2021 NURSING PROG HNO ID: [id number] Author: Vance Everett RN Service: ? Author Type: Registered Nurse Type: Nursing Progress Note Filed: 04/25/2021 9:39 PM Note Text: Nursing Progress Note Patient Name: Michelle Mitchell Patient Location: [place] [address] [address] 10-13 Daily Note: paged hospitalist Michelle Mitchell, , pt requesting something stronger for pain than Tylenol. Per pt, Susanna withheld morphine d/t low BP, now 115/60. Thanks -Devonte [phone] Resident requested attempting another dose of tylenol instead of an alternative, and to page back if tylenol ineffective. Tylenol administered. 2127 - Michelle Mitchell, 5 -2, pt given Tylenol an hour ago, still no pain relief, 11/21 per patient. Patient requesting alternative pain medication. Thanks -Devonte [phone] This note was completed by: Vance Everett [facility] NURSING PROG HNO ID: [id number] Author: Kendal Strange RN Service: ? Author Type: Registered Nurse Type: Nursing Progress Note Filed: 04/25/2021 1:22 PM Note Text: Nursing Progress Note Patient Name: Michelle Mitchell Patient Location: /10-13 0949 Pt resting in bed, denies dizziness or SOB, however pt stated she had chest pain rated 3/10 at this time. Educated pt regarding updated diet, regular diet ordered, called and requested for pt. 1315 Dr. Mullins at bedside to see pt with this nurse. Pt stated, I got Morphine at [facility] and it helped my pain a lot." Dr. Mullins educated pt regarding tests that were ordered or completed and that she is not ordering Morphine due to blood pressure being low and Tylenol will be ordered. 1320 Pt started sobbing once Dr. Mullins left the room and advised her that she was not ordering Morphine. This note was completed by: Kendal Strange [facility] NURSING PROG O ID: [id number] Author: Sabrina Barbosa RN Service: ? Author Type: Registered Nurse Type: Nursing Progress Note Filed: 04/25/2021 6:53 AM Note Text: Nursing Progress Note Patient Name: Michelle Mitchell Patient Location: /10-13 Daily Note: Paged hospitalist admit pager " 5PAV [phone] Michelle Mitchell. Pt is c/o 8/10 chest/jaw pain. can she get something? thanks, rose ext [phone] Prn nitro was ordered, pt refused. States it does not help her and will give her a migraine and make her feel worse. Pt did receive morphine at [facility] and stated that it helped with her pain then. Morphine is listed on allergy list but she states that it's not a true allergy. Paged hospitalist admit pager " [address] [place] [address] [phone] Michelle Mitchell. Pt refusing nitro, had morphine [facility] says it helped and isn't a true allergy. Rose ext [phone]" This note was completed by: [facility] NURSING PROG HNO ID: [id number] Author: Sabrina Barbosa RN Service: ? Author Type: Registered Nurse Type: Nursing Progress Note Filed: 04/25/2021 6:00 AM Note Text: Nursing Progress Note Patient Name: Michelle Mitchell Patient Location: [place] [address] [address] 10-13 Transfer Note: Patient transferred into room/unit 558-2 in stable condition. Actions taken: No futher actions taken at this time. Will continue to monitor and check with patient. This note was completed by: [facility] TSHon 04-25-2021 TSH Qn 3.510 m[IU]/L Normal 0.270-4.20 0 [facility] Comment on above: Result Comment: If t [...] Recio, et al. 2017 Guidelines of the [place] Thyroid Association for the Diagnosis and Management of Thyroid Disease during and the . Thyroid, 2017:27:3:315-389. Performed By: #### T SH #### [place] [phone] #### HBA1C #### [facility] [address] [place], [place] [address] Troponin Ton 04-25-2021 Troponin T.cardiac [Mass/Vol] 0.028 ug/L Normal 0.000-0.[address] [place] [address] Comment on above: Performed By: #### T NT #### [place] [phone] Troponin T.cardiac [Mass/Vol] 0.026 ug/L Normal 0.000-0.[address] [place] [address] Comment on above: Performed By: #### T NT ####[phone] Troponin T.cardiac [Mass/Vol] 0.029 ug/L Normal 0.000-0.[address] [place] [address] Comment on above: Performed By: #### T NT, CKCKMB ####[phone] Troponin T.cardiac [Mass/Vol] 0.028 ug/L Normal 0.000-0.[address] [place] [address] Comment on above: Performed By: #### T NT, CBCDIF, CMP ####[place] [phone] XR ANKLE 3V AP/LAT/OBL RTon 11-04-2020 XR [...] No dislocation or acute fracture lucency detected. Animal Keeper Head: PSCB Transcribe Date/Time: Nov 04 2020 1:46A Dictated by : SHAKIRA LOVETT MD This examination was interpreted and the report reviewed and electronically signed by: SHAKIRA LOVETT MD on Nov 04 2020 1:47AM EST [id number] Normal [facility] Bacteria Bld Culton 09-19-19 Bacteria identified Cx Nom (Bld) CULTURE, BLOOD: No growth 5 days Normal [facility] Comment on above: Performed By: #### 6 00-7 #### [facility] CLIA [id number] [address] [place] [address] Bacteria identified Cx Nom (Bld) CULTURE, BLOOD: No growth 5 days Normal [facility] Comment on above: Performed By: #### 6 00-7 #### [facility] CLIA [id number] [address] [place] [address] CBC W Auto Differential pane l (Bld)on 09-18-2020 Basophils (Bld) [#/Vol] 0.03 10*3/uL Normal <0.11 [facility] Comment on above: Order Comment: Speci men Type: BLOOD SPECIMEN Performed By: #### 2 4323-8 #### [facility] CLIA [id number] [address] [place] [address] [place] Basophils/100 WBC (Bld) 0.3 % Normal [facility] Comment on above: Order Comment: Speci men Type: BLOOD SPECIMEN Performed By: #### 2 4323-8 #### [facility] CLIA [id number] [address] [place] [address] [place] Differential cell count method Nom (Bld) Auto Normal [facility] Comment on above: Order Comment: Speci men Type: BLOOD SPECIMEN Performed By: #### 2 4323-8 #### [facility] CLIA [id number] [address] [place] [address] [place] Eosinophils (Bld) [#/Vol] 0.06 10*3/uL Normal <0.46 [facility] Comment on above: Order Comment: Speci men Type: BLOOD SPECIMEN Performed By: #### 2 4323-8 #### [facility] CLIA [id number] [address] [place] [address] [place] Eosinophils/100 WBC (Bld) 0.7 % Normal [facility] Comment on above: Order Comment: Speci men Type: BLOOD SPECIMEN Performed By: #### 2 4323-8 #### [facility] CLIA [id number] [address] [place] [address] [place] Erythrocyte distribution width (RBC) [Ratio] 13.2 % Normal 11.5-15.0 [facility] Comment on above: Order Comment: Speci men Type: BLOOD SPECIMEN Performed By: #### 2 4323-8 #### [facility] CLIA [id number] [address] [place] [address] [place] Hematocrit (Bld) [Volume fraction] 42.4 % Normal 36.0-46.0 [facility] Comment on above: Order Comment: Speci men Type: BLOOD SPECIMEN Performed By: #### 2 4323-8 #### [facility] CLIA [id number] [address] [place] [address] [place] Hemoglobin (Bld) [Mass/Vol] 13.9 g/dL Normal 11.5-15.5 [facility] Comment on above: Order Comment: Speci men Type: BLOOD SPECIMEN Performed By: #### 2 4323-8 #### [facility] CLIA [id number] [address] [place] [address] [place] Lymphocytes (Bld) [#/Vol] 0.53 10*3/uL Low 1.00-4.00 [facility] Comment on above: Order Comment: Speci men Type: BLOOD SPECIMEN Performed By: #### 2 4323-8 #### [facility] CLIA [id number] [address] [place] [address] [facility] Lymphocytes/100 WBC (Bld) 6.1 % Normal [facility] Comment on above: Order Comment: Speci men Type: BLOOD SPECIMEN Performed By: #### 2 4323-8 #### [facility] CLIA [id number] [address] [place] [address] [place] MCH (RBC) [Entitic mass] 30.8 pg Normal 26.0-34.0 [facility] Comment on above: Order Comment: Speci men Type: BLOOD SPECIMEN Performed By: #### 2 4323-8 #### [facility] CLIA [id number] [address] [place] [address] [facility] OF [place] MCHC (RBC) [Mass/Vol] 32.8 g/dL Normal 30.5-36.0 [facility] Comment on above: Order Comment: Speci men Type: BLOOD SPECIMEN Performed By: #### 2 4323-8 #### [facility] CLIA [id number] [address] [place] [address] [facility] [place] MCV (RBC) [Entitic vol] 93.8 fL Normal 80.0-100.0 [facility] Comment on above: Order Comment: Speci men Type: BLOOD SPECIMEN Performed By: #### 2 4323-8 #### [facility] CLIA [id number] [address] [place] [address] [place] Monocytes (Bld) [#/Vol] 0.73 10*3/uL Normal <0.87 [facility] Comment on above: Order Comment: Speci men Type: BLOOD SPECIMEN Performed By: #### 2 4323-8 #### [facility] CLIA [id number] [address] [place] [address] [facility] [place] Monocytes/100 WBC (Bld) 8.4 % Normal [facility] Comment on above: Order Comment: Speci men Type: BLOOD SPECIMEN Performed By: #### 2 4323-8 #### [facility] CLIA [id number] [address] [facility] [place] [address] [place] Neutrophils (Bld) [#/Vol] 7.34 10*3/uL Normal 1.45-7.50 [facility] Comment on above: Order Comment: Speci men Type: BLOOD SPECIMEN Performed By: #### 2 4323-8 #### [facility] CLIA [id number] [address] [facility] [place] [address] [place] Neutrophils/100 WBC (Bld) 84.5 % Normal [facility] Comment on above: Order Comment: Speci men Type: BLOOD SPECIMEN Performed By: #### 2 4323-8 #### [facility] CLIA [id number] [address] [facility] [place] [address] [place] Platelet mean volume (Bld) [Entitic vol] 11.3 fL Normal 9.0-12.7 [facility] Comment on above: Order Comment: Speci men Type: BLOOD SPECIMEN Performed By: #### 2 4323-8 #### [facility] CLIA [id number] [address] [facility] [place] [address] [place] Platelets (Bld) [#/Vol] 240 10*3/uL Normal 150-400 [facility] Comment on above: Order Comment: Speci men Type: BLOOD SPECIMEN Performed By: #### 2 4323-8 #### [facility] CLIA [id number] [address] [facility] [place] [address] [place] RBC (Bld) [#/Vol] 4.52 10*6/uL Normal 3.90-5.20 [facility] Comment on above: Order Comment: Speci men Type: BLOOD SPECIMEN Performed By: #### 2 4323-8 #### [facility] CLIA [id number] [address] [facility] [place] [address] [place] WBC (Bld) [#/Vol] 8.69 10*3/uL Normal 3.70-11.00 [facility] Comment on above: Order Comment: Speci men Type: BLOOD SPECIMEN Performed By: #### 2 4323-8 #### [facility] CLIA [id number] [address] [place] [address] [facility] Comprehensive metabolic 2000 panelon 09-18-2020 Albumin [Mass/Vol] 4.6 g/dL Normal 3.9-4.9 [facility] Comment on above: Order Comment: Speci men Type: BLOOD SPECIMEN Performed By: #### 2 4323-8 #### [facility] CLIA [id number] [address] [place] [address] [facility] ALP [Catalytic activity/Vol] 117 U/L Normal 34-123 [facility] Comment on above: Order Comment: Speci men Type: BLOOD SPECIMEN Performed By: #### 2 4323-8 #### [facility] CLIA [id number] [address] [place] [address] [place] ALT With P-5'-P [Catalytic activity/Vol] 16 U/L Normal 7-38 [facility] Comment on above: Order Comment: Speci men Type: BLOOD SPECIMEN Performed By: #### 2 4323-8 #### [facility] CLIA [id number] [address] [place] [address] [facility] Anion gap [Moles/Vol] 11 mmol/L Normal 9-18 [facility] Comment on above: Order Comment: Speci men Type: BLOOD SPECIMEN Performed By: #### 2 4323-8 #### [facility] CLIA [id number] [address] [place] [address] [place] AST With P-5'-P [Catalytic activity/Vol] 15 U/L Normal 13-35 [facility] Comment on above: Order Comment: Speci men Type: BLOOD SPECIMEN Performed By: #### 2 4323-8 #### [facility] CLIA [id number] [address] [facility] [place] [place] [address] [place] Bilirubin [Mass/Vol] 0.5 mg/dL Normal 0.2-1.3 [facility] Comment on above: Order Comment: Speci men Type: BLOOD SPECIMEN Performed By: #### 2 4323-8 #### [facility] CLIA [id number] [address] [facility] [place] [place] [address] [place] Calcium [Mass/Vol] 10.0 mg/dL Normal 8.5-10.2 [facility] Comment on above: Order Comment: Speci men Type: BLOOD SPECIMEN Performed By: #### 2 4323-8 #### [facility] CLIA [id number] [address] [facility] [place] [place] [address] [place] Chloride [Moles/Vol] 102 mmol/L Normal 97-105 [facility] Comment on above: Order Comment: Speci men Type: BLOOD SPECIMEN Performed By: #### 2 4323-8 #### [facility] CLIA [id number] [address] [facility] [place] [place] [address] [place] CO2 [Moles/Vol] 25 mmol/L Normal 22-30 [facility] Comment on above: Order Comment: Speci men Type: BLOOD SPECIMEN Performed By: #### 2 4323-8 #### [facility] CLIA [id number] [address] [facility] [place] [address] [place] Creatinine [Mass/Vol] 0.73 mg/dL Normal 0.58-0.96 [facility] Comment on above: Order Comment: Speci men Type: BLOOD SPECIMEN Performed By: #### 2 4323-8 #### [facility] CLIA [id number] [address] [facility] [place] [address] [place] GFR/1.73 sq M.predicted among blacks MDRD (S/P/Bld) [Vol rate/Area] mL/min/{1.73_m2} Normal [facility] Comment on above: Order Comment: Speci men Type: BLOOD SPECIMEN Performed By: #### 2 4323-8 #### [facility] CLIA [id number] [address] [place] [address] [place] GFR/1.73 sq M.predicted among non-blacks MDRD (S/P/Bld) [Vol rate/Area] mL/min/{1.73_m2} Normal [facility] Comment on above: Order [...] GFR. Performed By: #### 2 4323-8 #### [facility] CLIA [id number] [address] [place] [address] [place] Glucose [Mass/Vol] 94 mg/dL Normal 74-99 [facility] Comment on above: Order Comment: Speci men Type: BLOOD SPECIMEN Result Comment: The [place] Diabetes Association (ADA) provides guidance for cutoff [...] Standards of Medical Care in Diabetes 2016, [place] Diabetes Association. Diabetes Care. 2016.39(Suppl 1). Performed By: #### 2 4323-8 #### [facility] CLIA [id number] [address] [place] [address] [place] Potassium [Moles/Vol] 3.5 mmol/L Low 3.7-5.1 [facility] Comment on above: Order Comment: Speci men Type: BLOOD SPECIMEN Performed By: #### 2 4323-8 #### [facility] CLIA [id number] [address] [place] [address] [place] Protein [Mass/Vol] 7.6 g/dL Normal 6.3-8.0 [facility] Comment on above: Order Comment: Speci men Type: BLOOD SPECIMEN Performed By: #### 2 4323-8 #### [facility] CLIA [id number] [address] [place] [address] [place] Sodium [Moles/Vol] 138 mmol/L Normal 136-144 [facility] Comment on above: Order Comment: Speci men Type: BLOOD SPECIMEN Performed By: #### 2 4323-8 #### [facility] CLIA [id number] [address] [place] [address] [place] Urea nitrogen [Mass/Vol] 4 mg/dL Low 7-21 [facility] Comment on above: Order Comment: Speci men Type: BLOOD SPECIMEN Performed By: #### 2 4323-8 #### [facility] CLIA [id number] [address] [place] [address] [place] HCG Preg Ur Qlon 09-18-2020 HCG ( test) Ql (U) Negative Normal Negative [facility] Comment on above: Order Comment: Speci men Type: BLOOD SPECIMEN Result Comment: This test is intended to aid in the early detection of . Very dilute urine samples, as indicated by a low specific gravity, may not contain reimbursement representative levels of hCG. This test detects [...] . Performed By: #### 2 4323-8 #### [facility] CLIA [id number] [address] [place], [place] [address] [place] [address] [place] HIGH SENSITIVITY TROPONIN To n 09-18-2020 HIGH SENSITIVITY SAULO 13 ng/L High <12 [facility] Comment on above: Order Comment: Speci [...] MACE. Performed By: #### H STNT #### [facility] CLIA [id number] [address] HIGH SENSITIVITY SAULO 13 ng/L High <12 [facility] Comment on above: Order Comment: Speci [...] MACE. Performed By: #### H STNT #### [facility] CLIA [id number] [address] [place] Lactate (Bld) [Moles/Vol]on 09-18-2020 Lactate [Moles/Vol] 1.3 mmol/L Normal 0.5-2.2 [facility] Comment on above: Order Comment: Speci men Type: BLOOD SPECIMEN Performed By: #### 2 4323-8 #### [facility] CLIA [id number] [address] [place] [id number] [facility] [place] RAPID GROUP A STREP RFLX TO CULTon 09-18-2020 S. pyogenes Ag IA Ql (Unsp spec) GROUP A STREP ANTIGEN: Negative Group A Strep Screen Culture negative for Beta Strep Group A Normal [facility] Comment on above: Order Comment: Speci men Type: BLOOD SPECIMEN Performed By: #### 2 4323-8 #### [facility] [place] [facility] CLIA [id number] [address] [place] [address] [facility] Urinalysis complete panel (U )on 09-18-2020 Bilirubin Ql (U) Negative Normal Negative [facility] Comment on above: Order Comment: Speci men Type: BLOOD SPECIMEN Performed By: #### 2 4323-8 #### [facility] [place] [facility] CLIA [id number] [address] [place] [address] [facility] Clarity (Unsp spec) Clear Normal Clear [facility] Comment on above: Order Comment: Speci men Type: BLOOD SPECIMEN Performed By: #### 2 4323-8 #### [facility] [place] [facility] CLIA [id number] [address] [place] [address] [facility] Color (U) Yellow Normal Yellow [facility] Comment on above: Order Comment: Speci men Type: BLOOD SPECIMEN Performed By: #### 2 4323-8 #### [facility] [place] [facility] CLIA [id number] [address] [place] [address] [facility] Epithelial cells LM.HPF (Urine sed) [#/Area] Few Normal [facility] Comment on above: Order Comment: Speci men Type: BLOOD SPECIMEN Performed By: #### 2 4323-8 #### [facility] [place] [facility] CLIA [id number] [address] [place] [address] [facility] Glucose Test strip (U) [Mass/Vol] Negative Normal Negative [facility] Comment on above: Order Comment: Speci men Type: BLOOD SPECIMEN Performed By: #### 2 4323-8 #### [facility] [place] [facility] CLIA [id number] [address] [place] [address] [facility] [place] Hemoglobin Ql (U) 2+ Abnormal Negative [facility] Comment on above: Order Comment: Speci men Type: BLOOD SPECIMEN Performed By: #### 2 4323-8 #### [facility] [place] [facility] CLIA [id number] [address] [place] [address] [place] Ketones Ql (U) Negative Normal Negative [facility] Comment on above: Order Comment: Speci men Type: BLOOD SPECIMEN Performed By: #### 2 4323-8 #### [facility] [place] [facility] CLIA [id number] [address] [place] [address] [facility] Leukocyte esterase Test strip Ql (U) Negative Normal Negative [facility] Comment on above: Order Comment: Speci men Type: BLOOD SPECIMEN Performed By: #### 2 4323-8 #### [facility] [place] [facility] CLIA [id number] [address] [place] [address] [place] [facility] Nitrite Ql (U) Negative Normal Negative [facility] Comment on above: Order Comment: Speci men Type: BLOOD SPECIMEN Performed By: #### 2 4323-8 #### [facility] [place] [facility] CLIA [id number] [address] [place] [address] [place] pH (U) 7.0 [pH] Normal 5.0-8.0 [facility] Comment on above: Order Comment: Speci men Type: BLOOD SPECIMEN Performed By: #### 2 4323-8 #### [facility] [place] [facility] CLIA [id number] [address] [place] [address] [place] Protein (U) [Mass/Vol] Normal [facility] Comment on above: Order Comment: Speci men Type: BLOOD SPECIMEN Result Comment: Visi ble blood causes falsely elevated results for analyte Protein. Due to this limitation, Protein will not be reported for patients whose urine contains visible blood. Performed By: #### 2 4323-8 #### [facility] [place] [facility] CLIA [id number] [address] [place] [address] [facility] RBC LM.HPF (Urine sed) [#/Area] 0-3 /HPF Normal 0-3 /HPF [facility] Comment on above: Order Comment: Speci men Type: BLOOD SPECIMEN Performed By: #### 2 4323-8 #### [facility] CLIA [id number] [address] [place] [address] [facility] Specific gravity (U) [Rel density] 1.015 Normal 1.005-1.03 0 [facility] Comment on above: Order Comment: Speci men Type: BLOOD SPECIMEN Performed By: #### 2 4323-8 #### [facility] CLIA [id number] [address] [place] [address] [facility] Urobilinogen Ql (U) 0.2 EU/dL Normal 0.2-1.0 EU/dL [facility] Comment on above: Order Comment: Speci men Type: BLOOD SPECIMEN Performed By: #### 2 4323-8 #### [facility] CLIA [id number] [address] WBC LM.HPF (Urine sed) [#/Area] 0-5 /HPF Normal 0-5 /HPF [facility] Comment on above: Order Comment: Speci men Type: BLOOD SPECIMEN Performed By: #### 2 4323-8 #### [facility] CLIA [id number] [address] XR CHEST 1V FRONTALon 2020 XR CHEST [...] of the chest. No acute radiographic abnormality. Animal Keeper Head: PSCB Transcribe Date/Time: Sep 18 2020 5:24P Dictated by : ASHIA PONCE MD This examination was interpreted and the report reviewed and electronically signed by: ASHIA PONCE MD on Sep 18 2020 5:26PM EST [id number] Normal [facility] Basic metabolic 2000 panelon 04-17-2020 Anion gap [Moles/Vol] 10 mmol/L Normal 9-18 [facility] Comment on above: Order Comment: Speci men Type: BLOOD SPECIMEN Performed By: #### 2 4323-8 #### [facility] [place] [facility] CLIA [id number] [address] [facility] [place] [address] [place] Calcium [Mass/Vol] 9.0 mg/dL Normal 8.5-10.2 [facility] Comment on above: Order Comment: Speci men Type: BLOOD SPECIMEN Performed By: #### 2 4323-8 #### [facility] [place] [facility] CLIA [id number] [address] [place] [address] [place] Chloride [Moles/Vol] 107 mmol/L High 97-105 [facility] Comment on above: Order Comment: Speci men Type: BLOOD SPECIMEN Performed By: #### 2 4323-8 #### [facility] [place] [facility] CLIA [id number] [address] [place] [address] [place] CO2 [Moles/Vol] 23 mmol/L Normal 22-30 [facility] Comment on above: Order Comment: Speci men Type: BLOOD SPECIMEN Performed By: #### 2 4323-8 #### [facility] [place] [facility] CLIA [id number] [address] [place] [address] [place] Creatinine [Mass/Vol] 0.78 mg/dL Normal 0.58-0.96 [facility] Comment on above: Order Comment: Speci men Type: BLOOD SPECIMEN Performed By: #### 2 4323-8 #### [facility] [place] [facility] CLIA [id number] [address] [place] [address] [place] GFR/1.73 sq M.predicted among blacks MDRD (S/P/Bld) [Vol rate/Area] mL/min/{1.73_m2} Normal [facility] Comment on above: Order Comment: Speci men Type: BLOOD SPECIMEN Performed By: #### 2 4323-8 #### [facility] [place] [facility] CLIA [id number] [address] [place] [address] [place] GFR/1.73 sq M.predicted among non-blacks MDRD (S/P/Bld) [Vol rate/Area] mL/min/{1.73_m2} Normal [facility] Comment on above: Order [...] GFR. Performed By: #### 2 4323-8 #### [facility] CLIA [id number] [address] [place] [address] [place] Glucose [Mass/Vol] 91 mg/dL Normal 74-99 [facility] Comment on above: Order Comment: Speci men Type: BLOOD SPECIMEN Result Comment: The [place] Diabetes Association (ADA) provides guidance for cutoff [...] Standards of Medical Care in Diabetes 2016, [place] [employer]. Diabetes Care. 2016.39(Suppl 1). Performed By: #### 2 4323-8 #### [facility] [place] [facility] CLIA [id number] [address] [place] [address] [place] Potassium [Moles/Vol] 3.4 mmol/L Low 3.7-5.1 [facility] Comment on above: Order Comment: Speci men Type: BLOOD SPECIMEN Performed By: #### 2 4323-8 #### [facility] [place] [facility] CLIA [id number] [address] [place] [address] [place] Sodium [Moles/Vol] 140 mmol/L Normal 136-144 [facility] Comment on above: Order Comment: Speci men Type: BLOOD SPECIMEN Performed By: #### 2 4323-8 #### [facility] [place] [facility] CLIA [id number] [address] [place] [address] [place] Urea nitrogen [Mass/Vol] 6 mg/dL Low 7-21 [facility] Comment on above: Order Comment: Speci men Type: BLOOD SPECIMEN Performed By: #### 2 4323-8 #### [facility] [place] [facility] CLIA [id number] [address] [place] [address] [place] CBC panel Auto (Bld)on 04-17 Erythrocyte distribution width (RBC) [Ratio] 12.6 % Normal 11.5-15.0 [facility] Comment on above: Order Comment: Speci men Type: BLOOD SPECIMEN Performed By: #### 5 8410-2 #### [facility] [place] [facility] CLIA [id number] [address] [place] [address] [place] Hematocrit (Bld) [Volume fraction] 40.4 % Normal 36.0-46.0 [facility] Comment on above: Order Comment: Speci men Type: BLOOD SPECIMEN Performed By: #### 5 8410-2 #### [facility] [place] [facility] CLIA [id number] [address] [place] [address] [place] Hemoglobin (Bld) [Mass/Vol] 13.1 g/dL Normal 11.5-15.5 [facility] Comment on above: Order Comment: Speci men Type: BLOOD SPECIMEN Performed By: #### 5 8410-2 #### [facility] [place] [facility] CLIA [id number] [address] [place] [address] [facility] MCH (RBC) [Entitic mass] 30.4 pg Normal 26.0-34.0 [facility] Comment on above: Order Comment: Speci men Type: BLOOD SPECIMEN Performed By: #### 5 8410-2 #### [facility] [place] [facility] CLIA [id number] [address] [place] [address] [place] MCHC (RBC) [Mass/Vol] 32.4 g/dL Normal 30.5-36.0 [facility] Comment on above: Order Comment: Speci men Type: BLOOD SPECIMEN Performed By: #### 5 8410-2 #### [facility] [place] [facility] CLIA [id number] [address] [place] [address] [place] MCV (RBC) [Entitic vol] 93.7 fL Normal 80.0-100.0 [facility] Comment on above: Order Comment: Speci men Type: BLOOD SPECIMEN Performed By: #### 5 8410-2 #### [facility] [place] [facility] CLIA [id number] [address] [place] [address] [place] Platelet mean volume (Bld) [Entitic vol] 10.8 fL Normal 9.0-12.7 [facility] Comment on above: Order Comment: Speci men Type: BLOOD SPECIMEN Performed By: #### 5 8410-2 #### [facility] [place] [facility] CLIA [id number] [address] [place] [address] [place] Platelets (Bld) [#/Vol] 241 10*3/uL Normal 150-400 [facility] Comment on above: Order Comment: Speci men Type: BLOOD SPECIMEN Performed By: #### 5 8410-2 #### [facility] [place] [facility] CLIA [id number] [address] [place] [address] [place] RBC (Bld) [#/Vol] 4.31 10*6/uL Normal 3.90-5.20 [facility] Comment on above: Order Comment: Speci men Type: BLOOD SPECIMEN Performed By: #### 5 8410-2 #### [facility] CLIA [id number] [address] [place] [address] [place] [facility] WBC (Bld) [#/Vol] 11.29 10*3/uL High 3.70-11.00 [facility] Comment on above: Order Comment: Speci men Type: BLOOD SPECIMEN Performed By: #### 5 8410-2 #### [facility] CLIA [id number] [address] D dimer FEU PPP-mCncon 04-17 Fibrin D-dimer FEU (PPP) [Mass/Vol] 310 ng/mL FEU Normal <500 [facility] Comment on above: Order Comment: Speci men Type: BLOOD SPECIMEN Performed By: #### 2 4323-8 #### [facility] CLIA [id number] [address] HCG Preg Ur Qlon 04-17-2020 HCG ( test) Ql (U) Negative Normal Negative [facility] Comment on above: Order Comment: Speci men Type: URINE SPECIMEN Result Comment: This test is intended to aid in the early detection of . Very dilute urine samples, as indicated by a low specific gravity, may not contain reimbursement representative levels of hCG. This test detects [...] . Performed By: #### 2 106-3 #### [facility] CLIA [id number] [address] [place] [id number] [facility] HIGH SENSITIVITY TROPONIN To n 04-17-2020 HIGH SENSITIVITY SAULO 14 ng/L High <12 [facility] Comment on above: Order Comment: Speci [...] MACE. Performed By: #### H STNT #### [facility] CLIA [id number] [address] HIGH SENSITIVITY SAULO 14 ng/L High <12 [facility] Comment on above: Order Comment: Speci [...] MACE. Performed By: #### 2 4323-8 #### [facility] CLIA [id number] [address] [place] [id number] [facility] XR CHEST 1V FRONTALon 2020 XR [...] Other: - IMPRESSION: No acute radiographic abnormality. Animal Keeper Head: KIM Transcribe Date/Time: Apr 16 2020 11:07P Dictated by : VICTOR M STALEY MD This examination was interpreted and the report reviewed and electronically signed by: VICTOR M STALEY MD on Apr 16 2020 11:10PM EST Normal [facility] CORONAVIRUS 2019 BY PCRon CORONAVIRUS 2019,PCR NOT DETECTED Normal Not Detected [facility] Comment on above: Result Comment: . This [...] patient management decisions. Fact sheet for providers: https://www.fda.gov/media/903080/download Fact sheet for patients: https://www.fda.gov/media/962114/download This test has received FDA Emergency Use Authorization (EUA) and has been verified by [facility] ([facility]). This test is only authorized for the duration of time that circumstances exist to justify the authorization of the emergency use of in vitro diagnostic tests for the detection of SARS-CoV-2 virus and/or diagnosis of COVID-19 infection under section 564(b)(1) of the Act, 21 U.S.C. 360bbb-3(b)(1), unless the authorization is terminated or revoked sooner. [facility] is certified under CLIA-88 as qualified to perform high complexity testing. Testing is performed in the [facility] laboratories located at [address] [place] [address]. Performed By: #### C OV19 #### [place] [address] DATE OF SYMPTOM ONSET [YYYYMMDD]? 20200319 Normal [facility] Comment on above: Performed By: #### C OV19 #### [address] [place] [address] Covid 19 Resultson 1 Covid 19 Results [...] You may also be contacted by the [facility] to see if any of your close [...] or Naproxen (Aleve) can also be used. Fndu-jpr-siqrjsu cough and cold medicines can be used according to the instructions on the package. Some hunp-vlm-jwcwcba medicines also contain acetaminophen. Make sure you [...] water are not available, use alcohol-based hand backend tester. Avoid touching your eyes, nose, and mouth [...] a total of 10 days. Additional resources: [facility] COVID Hotline at 8-277-0LBZVNU ( ). COVID-19 Careline at (available 24 hours per day, seven days a week if you or a loved one is experiencing anxiety related to the coronavirus pandemic). Clinical research opportunities: is conducting research studies to develop better testing and treatments for COVID. Do you want any information on how to participate Call [phone]. Websites: hospitals.org or www.CDC.gov Follow My Health / My [facility] (for other test results): Revised 01/29/2020 Electronic Signatures: Michelle Monrealices (ADMIN) (Signature pending) Authored Last Updated: 23-Mar-2020 06:43 by Rah Monreal (ADMIN) Normal [facility] CORONAVIRUS 2019 BY PCRon Lab Specimen Source Nasal, Nasopharyngeal Normal [facility] Comment on above: Performed By: #### C OV19 #### [facility] [address] [place] [address] CT CERVICAL SPINE WO IVCONon 12-10-2019 CT [...] No cervical spine fracture or traumatic malalignment. Animal Keeper Head: KIM Transcribe Date/Time: Dec 10 2019 8:59P Dictated by : DEX TOLENTINO MD This examination was interpreted and the report reviewed and electronically signed by: DEX TOLENTINO MD on Dec 10 2019 9:08PM EST Normal [facility] XR CHEST 1V FRONTALon 2019 XR CHEST [...] No acute bony abnormality. IMPRESSION:No acute process. Animal Keeper Head: PSCB Transcribe Date/Time: Dec 10 2019 9:18P Dictated by : JOEY OVALLES MD This examination was interpreted and the report reviewed and electronically signed by: JOEY OVALLES MD on Dec 10 2019 9:19PM EST Normal [facility] XR SHLDR >/=3V AP/ELENA AP/OTH R LTon [...] normal. Joint spaces are preserved. IMPRESSION:Normal shoulder. Animal Keeper Head: [facility] Transcribe Date/Time: Dec 10 2019 9:14P Dictated by : JOEY OVALLES MD This examination was interpreted and the report reviewed and electronically signed by: JOEY OVALLES MD on Dec 10 2019 9:17PM EST Normal [facility] XR THORACIC 3V AP/LAT/SWIMME RSon 12-10-2019 XR [...] No significant degenerative spondylosis. IMPRESSION:Normal thoracic spine. Animal Keeper Head: KIM Transcribe Date/Time: Dec 10 2019 9:19P Dictated by : JOEY OVALLES MD This examination was interpreted and the report reviewed and electronically signed by: JOEY OVALLES MD on Dec 10 2019 9:21PM EST Normal [facility] HISTORY PHYSICALon 8 HISTORY PHYSICAL HNO ID: [id number]: Nallely Min (Pac) Vini De La Garza: (none)Author Type: Physician AssistantType: HANDPFiled: 08/25/2017 12:58 [...] PAST SURGICAL HISTORY OF 05/24/2014 Laparoscopy, - [place] ANESTH,PACEMAKER INSERTION 2006 ICD implant, [facility]- REMOVAL OF OVARY(S) Left 2010 For [...] and Percocet- Ativan [Lorazepam] Vomiting- Azithromycin Intolerance- [place] Anaphylaxis- Fish Anaphylaxis- Levofloxacin In D5w Swelling, [...] August 25, 2017 : 12:58 PM PAGER: [phone] [facility] PT EDon 08-25-2017 PT ED HNO ID: [id number]: Roxane (Rn) DEUCE Laraervice: (none)Author Type: Registered [...] By Roxane Lara RN In Department: PROCEDURES [facility] PT ED HNO ID: [id number]: Arvind (Rn) DEUCE Bahenaervice: NursingAuthor Type: Registered NurseType: Patient EducationFiled: 08/25/2017 12:47 PMNote Text:PRE OP LEARNING ASSESSMENTPROCEDURE/SURG QUINN: GI PROCEDURES: EGDREADINESS TO LEARNCOGNITIVE ABILITY: Alert and orientedMOTIVATION TO LEARN: EagerFAMILY SUPPORT: High - Very involved in pt carePATIENT LEARNS BEST BY: Verbal InstructionFACTORS AFFECTING LEARNING: NonePHYSICAL LIMITATIONS AFFECTING LEARNING: NoneElectronically Signed By: Arvind Bahena RN [facility] SURGICAL PATHOLOGYon 08-25- 018 SURGICAL PATHOLOGY [facility]: [id number] Physician: BALDO KENNEDY FINAL DIAGNOSISAntrum, biopsy - [...] submitted in one cassette.Gross examination performed at [facility], [address] [place] [address] 08/25/17Patient ID #: [id number] of Report: 08/27/2017Date of Procedure: 08/25/2017Date of Receipt: 08/25/2017Submitted by: BALDO TABBAALocation: AVENDiagnostic interpretation performed at [facility], [address] [place] [address]. Normal [facility] Comment on above: Performed By: #### S ####See report for performing lab information. HOSPon 08-22-2017 HOSP Patient:AlbadelmiDick RN: Height:5' 4"(1.626 m)Weight:116 lb (52.617 kg)Outpatient Medications as of [...] and vomiting [R11.2]Allergies:Morphin eAtivan [Lorazepam]AzithromycinC ucumberFishLevofloxacin In K2nUoihvlqsm [Gabapentin]pickles [Other]ShellfishTigan [Trimethobenzamide-Benzo dick]Ultram [Tramadol]Vicodin [Hydrocodone-Acetaminoph en]Zofran [Ondansetron Hcl (Pf)]Date Verified: 08/25/17Lab ValuesLab Value Units Date High LowPOTA* 3.1 mEq/L 08/05/2017 5.1 3.5HEMA* 41.2 % 08/05/2017 47.0 37.0Progress Notes (RADIO GEN [facility] CC):Kwasi Stephens Rt 08/22/2017 11:17 AM Signed Radiology Service Progress NotePATIENT NAME: Michelle MitchellMRN: [id number] OF SERVICE: August 22, 2017TIME: 11:16 AMPATIENT IDENTITY VERIFICATION COMPLETED USING TWO (2) METHODS: Patientconfirmed name verbally and Date of .PATIENT GENDER DATA: Female. status: : No Breastfeedingstatus: NO.PATIENT RELEVANT IMPLANT DATA REVIEWED: Not ApplicableRADIOLOGY DEPARTMENT: General X-ray: Exam(s) Completed: Abdomen X-Ray AbdomenPERIPHERAL IV DATA: Not applicableSIGNED BY: Praveena Traore RtJunalmita 2017 11:16 AMProgress Notes (SERGIO [facility] REJ):Jacqueline Stevens MA, MA 08/22/2017 10:[address] Aguilera is in regards to our mutual patient Michelle Mitchell who is scheduled gwendolyn EGD on 08/25/2017. Dr. Kennedy is requesting that Ms. Mitchell stop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s prior to procedure.Please advise and route message to:Dominguez [place] [facility]/SERGIO NURSE [id number] Stevens MA, MA 08/23/2017 8:07 AM SignedJoseph Manjinder Wilkinson ?You 20 hours ago (11:27 AM)Yes may stop for egd (Routing comment) Normal [facility] Vital Signs Date Time Vital Sign Value Performing Clinician Facility 08-27-2024 12:03-0400 Diastolic blood pressure 75 mm[Hg] Dr. Dex Wilkinson MD Work Phone: [facility] 08-27-2024 12:03-0400 Heart rate 63 /min Dr. Dex Wilkinson MD Work Phone: [facility] 08-27-2024 12:03-0400 Respiratory rate 18 /min Dr. Dex Wilkinson MD Work Phone: [facility] 08-27-2024 12:03-0400 SaO2% (BldA) [Mass fraction] 96 % Dr. Dex Wilkinson MD Work Phone: [facility] 08-27-2024 12:03-0400 Systolic blood pressure 134 mm[Hg] Dr. Dex Wilkinson MD Work Phone: [facility] 08-24-2024 15:22-0400 Body temperature 97.9 [degF] Dr. Dex Wilkinson MD Work Phone: [facility] 08-24-2024 15:22-0400 Diastolic blood pressure 61 mm[Hg] Dr. Dex Wilkinson MD Work Phone: [facility] 08-24-2024 15:22-0400 Heart rate 54 /min Dr. Dex Wilkinson MD Work Phone: [facility] 08-24-2024 15:22-0400 Respiratory rate 16 /min Dr. Dex Wilkinson MD Work Phone: [facility] 08-24-2024 15:22-0400 SaO2% (BldA) [Mass fraction] 99 % Dr. Dex Wilkinson MD Work Phone: [facility] 08-24-2024 15:22-0400 Systolic blood pressure 103 mm[Hg] Dr. Dex Wilkinson MD Work Phone: [facility] 08-22-2024 08:40-0400 Inhaled oxygen flow rate 97 L/min Dr. Dex Wilkinson MD Work Phone: [facility] 08-21-2024 16:39-0400 Body height 162.[address] Dex Wilkinson MD Work Phone: [facility] 08-21-2024 16:39-0400 Body mass index (BMI) [Ratio] 21.7 kg/m2 Dr. Dex Wilkinson MD Work Phone: [facility] 08-21-2024 16:39-0400 Body weight 57.[address] Dex Wilkinson MD Work Phone: [facility] 08-20-2024 18:00-0400 Body temperature 97.8 [degF] Dr. Dex Wilkinson MD Work Phone: [facility] 08-20-2024 18:00-0400 Diastolic blood pressure 88 mm[Hg] Dr. Dex Wilkinson MD Work Phone: [facility] 08-20-2024 18:00-0400 Heart rate 63 /min Dr. Dex Wilkinson MD Work Phone: [facility] 08-20-2024 18:00-0400 Respiratory rate 18 /min Dr. Dex Wilkinson MD Work Phone: [facility] 08-20-2024 18:00-0400 SaO2% (BldA) [Mass fraction] 100 % Dr. Dex Wilkinson MD Work Phone: [facility] [place] 08-20-2024 18:00-0400 Systolic blood pressure 136 mm[Hg] Dr. Dex Wilkinson MD Work Phone: [facility] 08-20-2024 14:16-0400 Body height 162.[address] Dex Wilkinson MD Work Phone: [facility] 08-20-2024 14:16-0400 Body mass index (BMI) [Ratio] 22.2 kg/m2 Dr. Dex Wilkinson MD Work Phone: [facility] 08-20-2024 14:16-0400 Body weight 58.[address] Dex Wilkinson MD Work Phone: [facility] 08-15-2024 10:57-0400 Body height 162.6 cm Radu Kay MD Work Phone: [facility] 08-15-2024 10:57-0400 Body mass index (BMI) [Ratio] 21.7 kg/m2 Radu Kay MD Work Phone: [facility] 08-15-2024 10:57-0400 Body weight 57.34 kg Radu Kay MD Work Phone: [facility] 08-15-2024 10:57-0400 Diastolic blood pressure 59 mm[Hg] Radu Kay MD Work Phone: [facility] 08-15-2024 10:57-0400 Heart rate 65 /min Radu Kay MD Work Phone: [facility] 08-15-2024 10:57-0400 Respiratory rate 16 /min Radu Kay MD Work Phone: [facility] 08-15-2024 10:57-0400 SaO2% (BldA) [Mass fraction] 96 % Radu Kay MD Work Phone: [facility] 08-15-2024 10:57-0400 Systolic blood pressure 120 mm[Hg] Radu Kay MD Work Phone: [facility] 08-11-2024 13:41-0400 Body temperature 97.8 [degF] Dr. Dex Wilkinson MD Work Phone: [facility] 08-11-2024 13:41-0400 Diastolic blood pressure 76 mm[Hg] Dr. Dex Wilkinson MD Work Phone: [facility] 08-11-2024 13:41-0400 Heart rate 64 /min Dr. Dex Wilkinson MD Work Phone: [facility] 08-11-2024 13:41-0400 Respiratory rate 16 /min Dr. Dex Wilkinson MD Work Phone: [facility] 08-11-2024 13:41-0400 SaO2% (BldA) [Mass fraction] 97 % Dr. Dex Wilkinson MD Work Phone: [facility] 08-11-2024 13:41-0400 Systolic blood pressure 105 mm[Hg] Dr. Dex Wilkinson MD Work Phone: [facility] 08-11-2024 10:27-0400 Body height 162.[address] Dex Wilkinson MD Work Phone: [facility] 08-11-2024 10:27-0400 Body mass index (BMI) [Ratio] 20.7 kg/m2 Dr. Dex Wilkinson MD Work Phone: [facility] 08-11-2024 10:27-0400 Body weight 54.[address] Dex Wilkinson MD Work Phone: [facility] 07-25-2024 16:43-0400 Diastolic blood pressure 57 mm[Hg] [facility] 07-25-2024 16:43-0400 Heart rate 61 /min Ip [facility] 07-25-2024 16:43-0400 Respiratory rate 18 /min [facility] 07-25-2024 16:43-0400 SaO2% (BldA) [Mass fraction] 95 % Ip [facility] 07-25-2024 16:43-0400 Systolic blood pressure 110 mm[Hg] [facility] 07-25-2024 15:04-0400 Body temperature 98.2 [degF] [facility] 07-24-2024 08:20-0400 Inhaled oxygen flow rate 2 L/min Dr. Dex Wilkinson MD Work Phone: [facility] 07-24-2024 08:20-0400 SaO2% (BldA) [Mass fraction] 96 % Dr. Dex Wilkinson MD Work Phone: [facility] 07-24-2024 07:41-0400 Body temperature 97.6 [degF] Dr. Dex Wilkinson MD Work Phone: [facility] 07-24-2024 07:41-0400 Diastolic blood pressure 79 mm[Hg] Dr. Dex Wilkinson MD Work Phone: [facility] 07-24-2024 07:41-0400 Heart rate 62 /min Dr. Dex Wilkinson MD Work Phone: [facility] 07-24-2024 07:41-0400 Respiratory rate 17 /min Dr. Dex Wilkinson MD Work Phone: [facility] 07-24-2024 07:41-0400 Systolic blood pressure 126 mm[Hg] Dr. Dex Wilkinson MD Work Phone: [facility] 07-24-2024 06:00-0400 Body mass index (BMI) [Ratio] 22.8 kg/m2 Dr. Dex Wilkinson MD Work Phone: [facility] 07-24-2024 06:00-0400 Body weight 60.[address] Dex Wilkinson MD Work Phone: [facility] 07-21-2024 09:02-0400 Body height 162.[address] Dex Wilkinson MD Work Phone: [facility] 07-20-2024 23:38-0400 Body temperature 98.2 [degF] Dr. Dex Wilkinson MD Work Phone: [facility] 07-20-2024 23:38-0400 Diastolic blood pressure 100 mm[Hg] Dr. Dex Wilkinson MD Work Phone: [facility] 07-20-2024 23:38-0400 Heart rate 70 /min Dr. Dex Wilkinson MD Work Phone: [facility] 07-20-2024 23:38-0400 Respiratory rate 15 /min Dr. Dex Wilkinson MD Work Phone: [facility] 07-20-2024 23:38-0400 SaO2% (BldA) [Mass fraction] 99 % Dr. Dex Wilkinson MD Work Phone: [facility] 07-20-2024 23:38-0400 Systolic blood pressure 133 mm[Hg] Dr. Dex Wilkinson MD Work Phone: [facility] 07-20-2024 18:57-0400 Body height 162.[address] Dex Wilkinson MD Work Phone: [facility] 07-20-2024 18:57-0400 Body mass index (BMI) [Ratio] 23.6 kg/m2 Dr. Dex Wilkinson MD Work Phone: [facility] 07-20-2024 18:57-0400 Body weight 62.[address] Dex Wilkinson MD Work Phone: [facility] 07-12-2024 12:25-0400 Body temperature 97.4 [degF] Dr. Dex Wilkinson MD Work Phone: [facility] 07-12-2024 12:25-0400 Diastolic blood pressure 69 mm[Hg] Dr. Dex Wilkinson MD Work Phone: [facility] 07-12-2024 12:25-0400 Heart rate 60 /min Dr. Dex Wilkinson MD Work Phone: [facility] 07-12-2024 12:25-0400 Respiratory rate 16 /min Dr. Dex Wilkinson MD Work Phone: [facility] 07-12-2024 12:25-0400 SaO2% (BldA) [Mass fraction] 98 % Dr. Dex Wilkinson MD Work Phone: [facility] 07-12-2024 12:25-0400 Systolic blood pressure 103 mm[Hg] Dr. Dex Wilkinson MD Work Phone: [facility] 07-12-2024 10:17-0400 Body mass index (BMI) [Ratio] 21.5 kg/m2 Dr. Dex Wilkinson MD Work Phone: [facility] 07-12-2024 10:17-0400 Body weight [address] Dex Wilkinson MD Work Phone: [facility] 07-10-2024 07:16-0400 Body mass index (BMI) [Ratio] 21.6 kg/m2 Dr. Dex Wilkinson MD Work Phone: [facility] 07-10-2024 07:16-0400 Body weight 57.[address] Dex Wilkinson MD Work Phone: [facility] 07-10-2024 07:16-0400 Diastolic blood pressure 83 mm[Hg] Dr. Dex Wilkinson MD Work Phone: [facility] 07-10-2024 07:16-0400 Heart rate 70 /min Dr. Dex Wilkinson MD Work Phone: [facility] 07-10-2024 07:16-0400 Respiratory rate 16 /min Dr. Dex Wiliknson MD Work Phone: [facility] 07-10-2024 07:16-0400 SaO2% (BldA) [Mass fraction] 98 % Dr. Dex Wilkinson MD Work Phone: [facility] 07-10-2024 07:16-0400 Systolic blood pressure 134 mm[Hg] Dr. Dex Wilkinson MD Work Phone: [facility] 07-03-2024 17:55-0400 Body temperature 98.2 [degF] Dr. Dex Wilkinson MD Work Phone: [facility] 07-03-2024 17:55-0400 Diastolic blood pressure 93 mm[Hg] Dr. Dex Wilkinson MD Work Phone: [facility] 07-03-2024 17:55-0400 Heart rate 68 /min Dr. Dex Wilkinson MD Work Phone: [facility] 07-03-2024 17:55-0400 Respiratory rate 19 /min Dr. Dex Wilkinson MD Work Phone: [facility] 07-03-2024 17:55-0400 SaO2% (BldA) [Mass fraction] 99 % Dr. Dex Wilkinson MD Work Phone: [facility] 07-03-2024 17:55-0400 Systolic blood pressure 142 mm[Hg] Dr. Dex Wilkinson MD Work Phone: [facility] 07-03-2024 13:30-0400 Body mass index (BMI) [Ratio] 22.9 kg/m2 Dr. Dex Wilkinson MD Work Phone: [facility] 07-03-2024 13:30-0400 Body weight 60.[address] Dex Wilkinson MD Work Phone: [facility] 07-01-2024 23:24-0400 Body temperature 97.9 [degF] Dr. Dex Wilkinson MD Work Phone: [facility] 07-01-2024 23:24-0400 Diastolic blood pressure 100 mm[Hg] Dr. Dex Wilkinson MD Work Phone: [facility] 07-01-2024 23:24-0400 Heart rate 70 /min Dr. Dex Wilkinson MD Work Phone: [facility] 07-01-2024 23:24-0400 Respiratory rate 17 /min Dr. Dex Wilkinson MD Work Phone: [facility] 07-01-2024 23:24-0400 SaO2% (BldA) [Mass fraction] 99 % Dr. Dex Wilkinson MD Work Phone: [facility] 07-01-2024 23:24-0400 Systolic blood pressure 136 mm[Hg] Dr. Dex Wilkinson MD Work Phone: [facility] 07-01-2024 19:52-0400 Body height 162.[address] Dex Wilkinson MD Work Phone: [facility] 07-01-2024 19:52-0400 Body mass index (BMI) [Ratio] 22 kg/m2 Dr. Dex Wilkinson MD Work Phone: [facility] 07-01-2024 19:52-0400 Body weight 58.[address] Dex Wilkinson MD Work Phone: [facility] 05-11-2024 23:42-0500 Body mass index (BMI) [Ratio] 21.5 kg/m2 Dr. Dex Wilkinson MD Work Phone: [facility] 05-11-2024 23:42-0500 Body temperature 98.2 [degF] Dr. Dex Wilkinson MD Work Phone: [facility] 05-11-2024 23:42-0500 Body weight 56.[address] Dex Wilkinson MD Work Phone: [facility] 05-11-2024 23:42-0500 Diastolic blood pressure 105 mm[Hg] Dr. Dex Wilkinson MD Work Phone: [facility] 05-11-2024 23:42-0500 Heart rate 105 /min Dr. Dex Wilkinson MD Work Phone: [facility] 05-11-2024 23:42-0500 Respiratory rate 20 /min Dr. Dex Wilkinson MD Work Phone: [facility] 05-11-2024 23:42-0500 SaO2% (BldA) [Mass fraction] 100 % Dr. Dex Wilkinson MD Work Phone: [facility] 05-11-2024 23:42-0500 Systolic blood pressure 169 mm[Hg] Dr. Dex Wilkinson MD Work Phone: [facility] 10-31-2023 10:45-0400 Diastolic Blood Pressure Non-Invasive 60 mm[Hg] DR VICTOR M ORTIZ MD [facility] 10-31-2023 10:45-0400 Heart rate 65 /min DR VICTOR M ORTIZ MD [facility] 10-31-2023 10:45-0400 Respiratory rate 20 /min DR VICTOR M ORTIZ MD [facility] 10-31-2023 10:45-0400 Systolic Blood Pressure Non-Invasive 95 mm[Hg] DR VICTOR M ORTIZ MD [facility] 10-31-2023 10:41-0400 Diastolic Blood Pressure Non-Invasive 54 mm[Hg] DR VICTOR M ORTIZ MD [facility] 10-31-2023 10:41-0400 Heart rate 65 /min DR VICTOR M ORTIZ MD [facility] 10-31-2023 10:41-0400 Respiratory rate 24 /min DR VICTOR M ORTIZ MD [facility] 10-31-2023 10:41-0400 Systolic Blood Pressure Non-Invasive 93 mm[Hg] DR VICTOR M ORTIZ MD [facility] 10-31-2023 10:35-0400 Diastolic Blood Pressure Non-Invasive 52 mm[Hg] DR VICTOR M ORTIZ MD [facility] 10-31-2023 10:35-0400 Heart rate 67 /min DR VICTOR M ORTIZ MD [facility] 10-31-2023 10:35-0400 Respiratory rate 24 /min DR VICTOR M ORTIZ MD [facility] 10-31-2023 10:35-0400 Systolic Blood Pressure Non-Invasive 89 mm[Hg] DR VICTOR M ORTIZ MD [facility] 10-31-2023 10:30-0400 Body height [address] VICTOR M ORTIZ MD [facility] 10-31-2023 10:30-0400 Body weight [address] VICTOR M ORTIZ MD [facility] 10-31-2023 10:30-0400 Body weight 20.44 kg/m2 DR VICTOR M ORTIZ MD [facility] 10-31-2023 10:25-0400 Respiratory Rate - Anes 28 br/min DR VICTOR M ORTIZ MD [facility] 10-31-2023 10:20-0400 Respiratory Rate - Anes 40 br/min DR VICTOR M ORTIZ MD [facility] 10-31-2023 10:15-0400 Respiratory Rate - Anes 30 br/min DR VICTOR M ORTIZ MD [facility] 10-31-2023 10:04-0400 Body height [address] VICTOR M ORTIZ MD [facility] 10-31-2023 10:04-0400 Body temperature 97.88 [degF] DR VICTOR M ORTIZ MD [facility] 10-31-2023 10:04-0400 Body weight [address] VICTOR M ORTIZ MD [facility] 10-31-2023 10:04-0400 Heart rate 68 /min DR VICTOR M ORTIZ MD [facility] 07-04-2023 23:00-0400 Body temperature 97.8 [degF] [facility] 07-04-2023 23:00-0400 Diastolic blood pressure 89 mm[Hg] [facility] 07-04-2023 23:00-0400 Heart rate 78 /min [facility] 07-04-2023 23:00-0400 Respiratory rate 16 /min [facility] 07-04-2023 23:00-0400 SaO2% (BldA) [Mass fraction] 99 % [facility] 07-04-2023 23:00-0400 Systolic blood pressure 122 mm[Hg] [facility] 07-04-2023 19:59-0400 Body height 162.56 cm [facility] 07-04-2023 19:59-0400 Body mass index (BMI) [Ratio] 21.9 kg/m2 [facility] 07-04-2023 19:59-0400 Body weight 57.92 kg [facility] 12-26-2022 01:43-0400 Heart rate 75 /min [facility] 12-26-2022 01:43-0400 Respiratory rate 15 /min [facility] 12-26-2022 01:43-0400 SaO2% (BldA) [Mass fraction] 98 % [facility] 12-26-2022 00:00-0400 Diastolic blood pressure 77 mm[Hg] [facility] 12-26-2022 00:00-0400 Systolic blood pressure 129 mm[Hg] [facility] 12-25-2022 21:20-0400 Body height 162.56 cm [facility] 12-25-2022 21:20-0400 Body mass index (BMI) [Ratio] 21.1 kg/m2 [facility] 12-25-2022 21:20-0400 Body temperature 97.9 [degF] [facility] 12-25-2022 21:20-0400 Body weight 55.8 kg [facility] 03-09-2022 10:45-0500 Respiratory rate 16 /min [facility] Work Phone: 03-09-2022 09:19-0500 Body height 162.56 cm [facility] Work Phone: 03-09-2022 09:19-0500 Body mass index (BMI) [Ratio] 21.2 kg/m2 [facility] Work Phone: 03-09-2022 09:19-0500 Body temperature 97.8 [degF] [facility] Work Phone: 03-09-2022 09:19-0500 Body weight 56.24 kg [facility] Work Phone: 03-09-2022 09:19-0500 Diastolic blood pressure 68 mm[Hg] [facility] Work Phone: 03-09-2022 09:19-0500 Heart rate 86 /min [facility] Work Phone: 03-09-2022 09:19-0500 SaO2% (BldA) [Mass fraction] 100 % [facility] Work Phone: 03-09-2022 09:19-0500 Systolic blood pressure 119 mm[Hg] [facility] Work Phone: 12-17-2021 03:42-0400 Diastolic blood pressure 67 mm[Hg] [facility] Work Phone: 12-17-2021 03:42-0400 Heart rate 70 /min [facility] Work Phone: 12-17-2021 03:42-0400 Respiratory rate 18 /min [facility] Work Phone: 12-17-2021 03:42-0400 SaO2% (BldA) [Mass fraction] 97 % [facility] Work Phone: 12-17-2021 03:42-0400 Systolic blood pressure 98 mm[Hg] [facility] Work Phone: 12-16-2021 22:32-0400 Body height 162.56 cm [facility] Work Phone: 12-16-2021 22:32-0400 Body mass index (BMI) [Ratio] 21.4 kg/m2 [facility] Work Phone: 12-16-2021 22:32-0400 Body temperature 98.5 [degF] [facility] Work Phone: 12-16-2021 22:32-0400 Body weight 56.69 kg [facility] Work Phone: 11-13-2021 17:52-0400 Respiratory rate 16 /min [facility] Work Phone: 11-13-2021 15:41-0400 Body height 162.56 cm [facility] Work Phone: 11-13-2021 15:41-0400 Body mass index (BMI) [Ratio] 21.2 kg/m2 [facility] Work Phone: 11-13-2021 15:41-0400 Body temperature 97.6 [degF] [facility] Work Phone: 11-13-2021 15:41-0400 Body weight 56.24 kg [facility] Work Phone: 11-13-2021 15:41-0400 Diastolic blood pressure 70 mm[Hg] [facility] Work Phone: 11-13-2021 15:41-0400 Heart rate 88 /min [facility] Work Phone: 11-13-2021 15:41-0400 SaO2% (BldA) [Mass fraction] 98 % [facility] Work Phone: 11-13-2021 15:41-0400 Systolic blood pressure 128 mm[Hg] [facility] Work Phone: 11-02-2021 22:04-0400 Diastolic blood pressure 78 mm[Hg] [facility] Work Phone: 11-02-2021 22:04-0400 Heart rate 98 /min [facility] Work Phone: 11-02-2021 22:04-0400 Respiratory rate 17 /min [facility] Work Phone: 11-02-2021 22:04-0400 SaO2% (BldA) [Mass fraction] 98 % [facility] Work Phone: 11-02-2021 22:04-0400 Systolic blood pressure 130 mm[Hg] [facility] Work Phone: 11-02-2021 20:56-0400 Body height 162.56 cm [facility] Work Phone: 11-02-2021 20:56-0400 Body mass index (BMI) [Ratio] 20.5 kg/m2 [facility] Work Phone: 11-02-2021 20:56-0400 Body temperature 98 [degF] [facility] Work Phone: 11-02-2021 20:56-0400 Body weight 54.43 kg [facility] Work Phone: Encounters Encounter Date Encounter Type Care Provider Facility Start: 09-13-2024 ambulatory Dex Cohn ty:[facility] Start: 08-28-2024 End: 08-28-[address] Dex Wilkinson MD Work Phone: [facility] Work Phone: Start: 08-28-2024 End: 08-28-2024 Quang Friend DO -Nuclear Medicine [facility] Work Phone: Start: 08-27-2024 End: 08-28-[address] Dex Wilkinson MD Work Phone: [facility] Work Phone: Start: 08-27-2024 End: 08-27-2024 Quanglawrence Myles DO -[facility] Work Phone: Start: 08-27-2024 End: 08-27-2024 ambulatory Dex Wilkinson Facility:[facility] Start: 08-24-2024 Dr. Taylor Tejeda MD - [facility] Work Phone: Start: 08-23-2024 Quang Friend DO -[facility] Start: 08-23-2024 Dr. Taylor Tejeda MD - [facility] Work Phone: Start: 08-22-2024 Dr. Taylor Tejeda MD - [facility] Work Phone: Start: 08-21-2024 Quang Friend DO -[facility] Start: 08-20-2024 Quang Friend DO -[facility] Start: 08-20-2024 ambulatory Lopez Larios Fac ility:[facility] Start: 08-20-2024 End: 08-24-2024 Evaluation and management of inpatient Dr. Dex Wilkinson MD Work Phone: [facility] Work Phone: Start: 08-20-2024 End: 08-24-2024 Dr. Lopez Larios DO -Progressive Care Unit Work Phone: Start: 08-15-2024 End: 08-23-2024 ambulatory RADU KAY [facility] Start: 08-15-2024 End: 08-15-2024 Office outpatient new 60 minutes Radu Kay MD Work Phone: [facility] Comment on above: Hypertrophic cardiom egaly (Primary Dx); Chronic heart failure with preserved ejection fraction (HFpEF); Cardiomyopathy, hypertrophic nonobstructive (Multi); History of pulmonary embolism; Other ascites; Atypical chest pain Start: 08-15-2024 End: 08-15-2024 Subsequent hospital visit by physician Clayton Serna0 Cr Nonv1 Holter/Ecg Resource [facility] Comment on above: Heart failure, unspe cified Start: 08-15-2024 End: 08-15-2024 ambulatory [facility] Start: 08-11-2024 End: 08-11-2024 Dr. Dex Wilkinson MD Work Phone: -Emergency Department Work Phone: Start: 08-11-2024 End: 08-11-2024 Emergency department patient visit Dr. Dex Wilkinson MD Work Phone: [facility] Work Phone: Start: 08-10-2024 End: 08-10-2024 ambulatory Suman Coburn Clinical Communication Start: 08-10-2024 End: 08-10-2024 Patient encounter procedure Suman Coburn Clinical Communication Start: 08-09-2024 End: 08-09-[address] Dex Wilkinson MD Work Phone: [facility] Work Phone: Start: 08-09-2024 End: 08-09-2024 Quang Friend DO -Laboratory Specimen Work Phone: Start: 08-08-2024 End: 08-08-[address] Dex Wilkinson MD Work Phone: [facility] Work Phone: Start: 08-08-2024 End: 08-08-2024 Quang Friend DO -Laboratory Work Phone: Start: 08-08-2024 End: 08-08-2024 Patient encounter procedure Quang Myles DO -[facility] Work Phone: Start: 08-08-2024 End: 08-08-2024 Quang Friend -[facility] Work Phone: Start: 08-08-2024 End: 08-09-[address] Dex Wilkinson MD Work Phone: [facility] Work Phone: Start: 08-08-2024 End: 08-08-2024 ambulatory Dex Wilkinson Facility:[facility] Start: 07-30-2024 End: 07-30-2024 Patient Outreach Quynh Chang [facility] Work Phone: Pharmacy Comment on above: Transition Of Care ( TCM Pharmacy-Hospital discharge 07/27/24) Start: 07-26-2024 End: 07-26-2024 Evaluation and management of inpatient Pulm Fct Lab J-2 Pulmonary Medicine Comment on above: Preoperative examina tion, unspecified (Primary Dx) Start: 07-26-2024 End: 07-26-2024 Preprocedural examination done Pulm J-2 [facility] Start: 07-25-2024 End: 07-25-2024 Evaluation and management of inpatient Ip Transesophageal Echo Cardiology Comment on above: History of transesop hageal echocardiography (MICKI) (Primary Dx) Start: 07-24-2024 End: 07-27-2024 Evaluation and management of inpatient MERCY BISHOP Facility:[facility] Start: 07-24-2024 Non-patient / Non-visit Dr. [facility]ian [facility] Work Phone: Start: 07-24-2024 Dr. Willian Orozco [facility] Work Phone: Start: 07-23-2024 ambulatory Breann Loera [place] [facility] Start: 07-23-2024 ambulatory Sergio Knowles ty:[facility] Start: 07-23-2024 Non-patient / Non-visit Dr. Mercy Bishop MD -[facility] Start: 07-23-2024 Dr. Mercy Bishop MD - [facility] Start: 07-22-2024 Non-patient / Non-visit Dr. Saman ureña MD -[facility] Start: 07-22-2024 Dr. Saman Clay MD -[facility] Start: 07-22-2024 Non-patient / Non-visit Dr. Willian [facility] Work Phone: Start: 07-22-2024 Dr. Willian Ovalles DO -[facility] Work Phone: Start: 07-21-2024 Non-patient / Non-visit Dr. Saman ureña MD -[facility] Start: 07-21-2024 Dr. Saman Clay MD -[facility] Start: 07-21-2024 Non-patient / Non-visit [facility] Work Phone: Start: 07-21-2024 Dr. Willian Ovalles DO -[facility] Work Phone: Start: 07-21-2024 ambulatory Sergio Santiago ty:[facility] Start: 07-21-2024 End: 07-24-2024 Dr. Willian LEOProgressive Jere Un it Work Phone: Start: 07-20-2024 End: 07-24-2024 Evaluation and management of inpatient Dr. Sergio Umaña DO Progressive Care Unit Work Phone: Start: 07-12-2024 ambulatory Quang Greg Facility :[facility] Start: 07-12-2024 Non-patient / Non-visit Quanglawrence Barragan nd DO -[facility] Start: 07-12-2024 Quang Myles DO -[facility] Start: 07-12-2024 End: 07-12-2024 Admission to same day surgery center Quang Greg DO -Endoscopy Work Phone: Start: 07-12-2024 End: 07-12-2024 Quang Myles DO -Endoscopy Work Phone: Start: 07-12-2024 End: 07-12-2024 ambulatory [facility] Facility:[facility] Start: 07-10-2024 End: 07-10-2024 Patient encounter procedure Xochitl Bourne [place] -[facility] Work Phone: Start: 07-10-2024 End: 07-10-2024 Xochitl Bourne [place] -[facility] Work Phone: Start: 07-10-2024 End: 07-10-2024 ambulatory Xochitl BUCKLEY [place] Start: 07-06-2024 End: 07-06-2024 Evaluation and management of inpatient UNKNOWN PROVIDER Facility:[facility] Start: 07-04-2024 End: 07-08-2024 Evaluation and management of inpatient UNKNOWN PROVIDER Facility:[facility] Start: 07-04-2024 End: 07-04-2024 ambulatory Dex Oliveraburn Facility[place] Start: 07-04-2024 End: 07-04-[address] Jose Francisco Santamaria MD -[facility] Work Phone: Start: 07-04-2024 End: 07-04-2024 Dr. Jose Francisco Santamaria MD -[facility] Work Phone: Start: 07-03-2024 End: 07-03-2024 Emergency department patient visit Dr. Nabor Frey DO -Emergency Department Work Phone: Start: 07-03-2024 End: 07-03-2024 Patient encounter procedure Bárbara BUCKLEY -[facility] Work Phone: Start: 07-03-2024 End: 07-03-2024 Dr. Nabor Frey DO -Emergency Departme nt Work Phone: Start: 07-03-2024 End: 07-03-2024 ambulatory Dex Wilkinson Facility[place] Start: 07-01-2024 End: 07-01-2024 Babar Wood DO -Emergency Departmen t Work Phone: Start: 07-01-2024 End: 07-01-2024 Emergency department patient visit Dr. Dex Wilkinson MD Work Phone: -Emergency Department Work Phone: Start: 07-01-2024 End: 07-01-2024 ambulatory Ella Cohen RN [facility] Start: 07-01-2024 End: 07-01-2024 Patient encounter procedure Ella Cohen RN [facility] Start: 05-15-2024 End: 05-21-2024 Evaluation and management of inpatient UNKNOWN PROVIDER Facility:[facility] Start: 05-11-2024 End: 05-12-2024 Dr. Bimal Cortez MD -Emergency Departm ent Work Phone: Start: 05-11-2024 End: 05-12-2024 Emergency department patient visit Dr. Bimal Cortez MD -Emergency Department Work Phone: Start: 03-28-2024 End: 03-28-2024 ambulatory [facility] [place] Start: 03-28-2024 End: 03-28-[address] Jose Francisco Santamaria MD -[facility] Work Phone: Start: 11-23-2023 End: 11-23-2023 ambulatory [facility] [place] Start: 11-01-2023 End: 11-02-2023 Emergency department patient visit [facility] Facility:[facility] Start: 10-31-2023 End: 10-31-[address] VICTOR M ORTIZ MD Facility:[facility] Start: 10-31-2023 End: 10-31-[address] VICTOR M ORTIZ MD [facility] Start: 09-13-2023 ambulatory Jose Francisco Santamaria Facility:[facility] Start: 09-13-2023 End: 09-13-2023 ambulatory [facility] Facility:[facility] Start: 07-04-2023 End: 07-04-2023 Emergency department patient visit [facility]-Emergency Department Work Phone: Start: 07-04-2023 ambulatory Angela Krihsna RN [facility] Start: 07-04-2023 Patient encounter procedure [facility] Start: 12-25-2022 End: 12-26-2022 Emergency department patient visit [facility]Emer[facility] Department Work Phone: Start: 03-09-2022 End: 03-09-2022 Emergency department patient visit [facility]Emergency Department Start: 12-16-2021 End: 12-17-2021 Emergency department patient visit [facility]-Emergency Department Start: 11-13-2021 End: 11-13-2021 Emergency department patient visit [facility]Emergency Department Start: 11-02-2021 End: 11-02-2021 Emergency department patient visit [facility]-Emergency Department Start: 08-25-2017 End: 08-25-2017 [facility] Procedures Date Procedure Procedure Detail Performing Clinician Start: 08-28-2024 Radionuclide gastric emptying study Dr. Dex Wilkinson MD Work Phone: Start: 08-27-[address] Dex Wilkinson MD Work Phone: Start: 08-24-2024 Blood count smear mcrscp w/mnl difrntl wbc count Dr. Dex Wilkinson MD Work Phone: Start: 08-24-[address] Kd Wilkinson MD Work Phone: Start: 08-24-2024 Mean corpuscular hemoglobin concentration determination Dr. Dex Wilkinson MD Work Phone: Start: 08-24-2024 Nucleated red blood cell count procedure Dr. Dex Wilkinson MD Work Phone: Start: 08-24-2024 Platelet mean volume determination Dr. eDx Wilkinson MD Work Phone: Start: 08-23-2024 Computed tomography of abdomen and pelvis with intravenous contrast Dr. Dex Wilkinson MD Work Phone: Start: 08-23-2024 CT of abdomen and pelvis without contrast Dr. Dex Wilkinson MD Work Phone: Start: 08-23-2024 Ecg routine ecg w/least 12 lds trcg only w/o i&r Radu Kay MD Work Phone: Start: 08-21-2024 End: 08-21-20[address] Dex Wilkinson MD Work Phone: Start: 08-21-[address] Dex Wilkinson MD Work Phone: Start: 08-20-2024 X-ray of chest, PA and lateral views Dr. Dex Wilkinson MD Work Phone: Start: 08-20-[address] Dex Wilkinson MD Work Phone: Start: 08-20-2024 Urine microscopy: red cells Dr. Dex Wilkinson MD Work Phone: Start: 08-20-2024 Urnls dip stick/tablet reagent auto microscopy Dr. Dex Wilkinson MD Work Phone: Start: 08-20-2024 Blood count smear mcrscp w/mnl difrntl wbc count Dr. Dex Wilkinson MD Work Phone: Start: 08-20-[address] Kd Wilkinson MD Work Phone: Start: 08-20-2024 Mean corpuscular hemoglobin concentration determination Dr. Dex Wilkinson MD Work Phone: Start: 08-20-2024 Nucleated red blood cell count procedure Dr. Dex Wilkinson MD Work Phone: Start: 08-20-2024 Platelet mean volume determination Dr. Dex Wilkinson MD Work Phone: Start: 08-20-[address] Dex Wilkinson MD Work Phone: Start: 08-11-2024 End: 08-11-[address] Dex Wilkinson MD Work Phone: Start: 08-11-2024 CT of abdomen and pelvis without contrast Dr. Dex Wilkinson MD Work Phone: Start: 08-11-[address] Kd Wilkinson MD Work Phone: Start: 08-11-2024 Mean corpuscular hemoglobin concentration determination Dr. Dex Wilkinson MD Work Phone: Start: 08-11-2024 Nucleated red blood cell count procedure Dr. Dex Wilkinson MD Work Phone: Start: 08-11-2024 Platelet mean volume determination Dr. Dex Wilkinson MD Work Phone: Start: 08-11-[address] Dex Wilkinson MD Work Phone: Start: 08-11-2024 Urine microscopy: red cells Dr. Dex Wilkinson MD Work Phone: Start: 08-11-2024 Urnls dip stick/tablet reagent auto microscopy Dr. Dex Wilkinson MD Work Phone: Start: 08-09-[address] Jaime Wilkinson MD Work Phone: Start: 08-09-[address] Dex Wilkinson MD Work Phone: Start: 08-09-[address] Dex Wilkinson MD Work Phone: Start: 08-09-2024 Ova [place] parasites identification Dr. Jaime Wilkinson MD Work Phone: Start: 08-09-2024 Iadna-dna/rna gi pthgn multiplex probe tq 6-11 Dr. Dex Wilkinson MD Work Phone: Start: 08-09-[address] Dex Wilkinson MD Work Phone: Start: 08-08-2024 Albumin/Globulin ratio Dr. Dex Wilkinson MD Work Phone: Start: 08-08-[address] Dex Wilkinson MD Work Phone: Start: 08-08-2024 Antibody to centromere measurement Dr. Dex Wilkinson MD Work Phone: Start: 08-08-2024 Antibody to extractable nuclear antigen measurement Dr. Dex Wilkinson MD Work Phone: Start: 08-08-2024 Antibody to MARTHA-[address] Dex Wilkinson MD Work Phone: Start: 08-08-2024 Antibody to lupus La protein measurement Dr. Dex Wilkinson MD Work Phone: Start: 08-08-2024 Antibody to SS-A measurement Dr. Dex Wilkinson MD Work Phone: Start: 08-08-[address] Dex Wilkinson MD Work Phone: Start: 08-08-2024 Blood count smear mcrscp w/mnl difrntl wbc count Dr. Dex Wilkinson MD Work Phone: Start: 08-08-2024 Calculation of international normalized ratio Dr. Dex Wilkinson MD Work Phone: Start: 08-08-[address] Dex Wilkinson MD Work Phone: Start: 08-08-2024 Copper measurement, serum Dr. Dex Wilkinson MD Work Phone: Start: 08-08-2024 Endomysial antibody IgA level Dr. Dex Wilkinson MD Work Phone: Start: 08-08-[address] Kd Wilkinson MD Work Phone: Start: 08-08-2024 Immunoglobulin G subclass, G4 measurement Dr. Dex Wilkinson MD Work Phone: Start: 08-08-[address] measurement Dr. Dex Wilkinson MD Work Phone: Start: 08-08-2024 Mean corpuscular hemoglobin concentration determination Dr. Dex Wilkinson MD Work Phone: Start: 08-08-[address] Dex Wilkinson MD Work Phone: Start: 08-08-2024 Nucleated red blood cell count procedure Dr. Dex Wilkinson MD Work Phone: Start: 08-08-2024 Platelet mean volume determination Dr. Dex Wilkinson MD Work Phone: Start: 08-08-2024 GREASE REFINING SUPERVISOR antibody measurement Dr. Dex Wiklinson MD Work Phone: Start: 08-08-2024 Scallop RASAlmaz Wilkinson MD Work Phone: Start: 08-08-[address] Dex Wilknison MD Work Phone: Start: 08-08-[address] Dex Wilkinson MD Work Phone: Start: 07-24-2024 Antibody screen [facility] Comment on above: Order Comment: Specimen Type: BLOOD SPEC IMEN Ordering Facility: [facility] Address: [address] [place] [address] Performed By: #### 5 [id number] #### [facility] CLIA [id number] [address] [place] [address] [place] Start: 07-23-2024 Blood count smear mcrscp w/mnl difrntl wbc count Dr. Dex Wilkinson MD Work Phone: Start: 07-23-[address] Kd Wilkinson MD Work Phone: Start: 07-23-2024 Mean corpuscular hemoglobin concentration determination Dr. Dex Wilkinson MD Work Phone: Start: 07-23-2024 Nucleated red blood cell count procedure Dr. Dex Wilkinson MD Work Phone: Start: 07-23-2024 Platelet mean volume determination Dr. Dex Wilkinson MD Work Phone: Start: 07-22-[address] Dex Wilkinson MD Work Phone: Start: 07-21-[address] Dex Wilkinson MD Work Phone: Start: 07-21-2024 Serum inorganic phosphate measurement Dr. Dex Wilkinson MD Work Phone: Start: 07-21-2024 Total cholesterol:HDL ratio measurement Dr. Dex Wilkinson MD Work Phone: Start: 07-20-2024 Computed tomography of abdomen and pelvis with intravenous contrast Dr. Dex Wilkinson MD Work Phone: Start: 07-20-2024 CT angiography of chest with contrast Dr. Dex Wilkinson MD Work Phone: Start: 07-20-2024 Plain chest X-ray Dr. Dex Wilkinson MD Work Phone: Start: 07-20-2024 Urine microscopy: red cells Dr. Dex Wilkinson MD Work Phone: Start: 07-20-2024 Urnls dip stick/tablet reagent auto microscopy Dr. Dex Wilkinson MD Work Phone: Start: 07-20-2024 D-dimer assay, quantitative Dr. Dex Wilkinson MD Work Phone: Comment on above: D-Dimer ELEVATED (>0.49): Additional marie dies and clinicalassessments are indicated to conclude diagnosis of:Deep Vein Thrombosis (DVT) or Pulmonary Embolism (PE)CRITICAL VALUE CALLED TO 07/20/24 Naga Aguilera.RESULTS READ BACK BY SAME. Start: 07-20-[address] Kd Wilkinson MD Work Phone: Start: 07-20-[address] Dex Wilkinson MD Work Phone: Start: 07-12-[address] Dex Wilkinson MD Work Phone: Start: 07-10-2024 Evaluation of diagnostic study results Dr. Dex Wilkinson MD Work Phone: Start: 07-03-2024 Urine microscopy: red cells Dr. Dex Wilkinson MD Work Phone: Start: 07-03-2024 Urnls dip stick/tablet reagent auto microscopy Dr. Dex Wilkinson MD Work Phone: Start: 07-03-2024 Computed tomography of abdomen and pelvis with intravenous contrast Dr. Dex Wilkinson MD Work Phone: Start: 07-03-2024 Blood count smear mcrscp w/mnl difrntl wbc count Dr. Dex Wilkinson MD Work Phone: Start: 07-03-[address] Kd Wilkinson MD Work Phone: Start: 07-03-2024 Mean corpuscular hemoglobin concentration determination Dr. Dex Wilkinson MD Work Phone: Start: 07-03-2024 Nucleated red blood cell count procedure Dr. Dex Wilkinson MD Work Phone: Start: 07-03-2024 Platelet mean volume determination Dr. Dex Wilkinson MD Work Phone: Start: 07-03-[address] Dex Wilkinson MD Work Phone: Start: 07-01-2024 Urine microscopy: red cells Dr. Dex Wilkinson MD Work Phone: Start: 07-01-2024 Urnls dip stick/tablet reagent auto microscopy Dr. Dex Wilkinson MD Work Phone: Start: 07-01-2024 Blood count smear mcrscp w/mnl difrntl wbc count Dr. Dex Wilkinson MD Work Phone: Start: 07-01-[address] Kd Wilkinson MD Work Phone: Start: 07-01-2024 Mean corpuscular hemoglobin concentration determination Dr. Dex Wilkinson MD Work Phone: Start: 07-01-2024 Nucleated red blood cell count procedure Dr. Dex Wilkinson MD Work Phone: Start: 07-01-2024 Platelet mean volume determination Dr. Dex Wilkinson MD Work Phone: Start: 07-01-[address] Dex Wilkinson MD Work Phone: Start: 07-01-2024 Computed tomography of abdomen and pelvis with intravenous contrast Dr. Dex Wilkinson MD Work Phone: Start: 07-04-2023 Plain chest X-ray Start: 07-04-2023 Computed tomography of abdomen and pelvis with intravenous contrast Start: 10-15-2023 CT angiography of chest with contrast Start: 12-25-2022 Plain chest X-ray Start: 03-09-2022 Radiologic examination of knee Start: 12-16-2021 Plain chest X-ray Start: 03-22-2020 Follow-up visit Start: 12-23-2016 Mammography Radu Kay MD Work Phone: H/O: tubal ligation DR LONI ROTIZ MD History of appendectomy DR Mika ORTIZ [...] Start: 09-15-2029 Zoster Vaccines (1 of 2) Zoster Vaccines (1 of 2) [facility] Start: 07-25-2025 Diabetes mellitus screening Diabetes Screening [facility] Start: 11-21-2024 End: 11-21-2024 Patient encounter procedure 11/21/2024 10:30 AM EDT Office Visit [facility] [address] [facility] [address] [place] [id number] Radu Kay MD [address] [facility] [address] [place] [address] [facility] Start: 11-12-2024 Influenza vaccination Influenza Vaccine (Season Ended) [facility] Start: 08-27-2024 Magnetic resonance cholangiopancreatography [facility] Start: 08-27-2024 MR Biliary ducts and Pancreatic duct WO contrast [facility] Start: 08-24-2024 Patient discharge [facility] Start: 08-22-2024 Provision of activity privileges [facility] Start: 08-20-2024 Following clinical pathway protocol [facility] Start: 08-20-2024 Ambulation without limitation [facility] Start: 08-20-2024 Assessment of risk of venous thromboembolism [facility] Start: 08-20-2024 Insertion of catheter into peripheral vein [facility] Start: 08-20-2024 Measuring intake and output [facility] Start: 08-20-2024 Providing care according to standard [facility] Start: 08-20-2024 Referral to gastroenterology service [facility] Start: 08-20-2024 [facility] Start: 08-20-2024 Hospital admission, emergency, from emergency room, medical nature [facility] Start: 08-20-2024 Verification routine [facility] Start: 08-20-2024 Admission procedure [facility] Start: 08-20-2024 Patient referral to dietitian [facility] Start: 08-11-2024 [facility] Start: 08-09-2024 [facility] Start: 08-09-2024 Ova OR parasites identification [facility] Start: 08-08-2024 [facility] Start: 07-26-2024 End: 07-26-2024 Patient encounter procedure Pulmonary Medicine Comment on above: NEEDS TRANSPORT IP AO, RA, NO DRIPS, REG WC, NO PRECAUTIONS/FEVERS //KP Start: 07-24-2024 Oxygen therapy [facility] Start: 07-24-2024 Patient discharge [facility] Start: 07-23-2024 Referral to gastroenterology service [facility] Start: 07-22-2024 Bacteria identified in Blood by Culture Blood Culture [facility] Start: 07-22-2024 End: 07-22-2024 [facility] Start: 07-22-2024 Inhalation therapy procedure [facility] Start: 07-21-2024 Provision of activity privileges [facility] Start: 07-21-2024 Following clinical pathway protocol [facility] Start: 07-21-2024 Assessment of risk of venous thromboembolism [facility] Start: 07-21-2024 Catheterization of vein [facility] Start: 07-21-2024 Insertion of catheter into peripheral vein [facility] Start: 07-21-2024 Measuring intake and output [facility] Start: 07-21-2024 Providing care according to standard [facility] Start: 07-21-2024 Provision of activity privileges [facility] Start: 07-21-2024 Referral to track laborer [facility] Start: 07-21-2024 Referral to service [facility] Start: 07-21-2024 [facility] Start: 07-21-2024 Verification routine [facility] Start: 07-21-2024 Admission procedure [facility] Start: 07-20-2024 Hospital admission, emergency, from emergency room, medical nature [facility] Start: 07-20-2024 [facility] Start: 07-12-2024 Colonoscopy w/biopsy single/multiple [facility] Start: 07-12-2024 Endoscopy upper small intestine w/biopsy [facility] Start: 07-12-2024 Patient discharge [facility] Start: 07-03-2024 [facility] Start: 07-01-2024 [facility] Start: 05-12-2024 [facility] Start: 02-08-2024 Screening for malignant neoplasm of cervix Cervical Cancer Screening [facility] Start: 11-13-2023 Covid-19 Vaccine ( season) Covid-19 Vaccine () [facility] Start: 07-04-2023 [facility] Start: 12-26-2022 [facility] Start: 12-26-2022 [facility] Start: 12-25-2022 [facility] Start: 11-07-2022 Urine microalbumin profile DTaP,Tdap,Td Vaccine (2 - Td or Tdap) [facility] Start: 12-16-2021 [facility] Work Phone: Start: 2019 Screening for malignant neoplasm of breast [facility] Start: 04-05-2012 Pneumococcal vaccination Pneumococcal Vaccine (2 of 2 - PCV) [facility] Start: 04-05-2012 Pneumococcal Vaccine: Pediatrics and At-Risk Adult Patients (2 of 2 - PCV) Pneumococcal Vaccine: Pediatrics and At-Risk Adult Patients (2 of 2 - PCV) [facility] Start: 09-15-2001 DTaP/Tdap/Td Vaccines (1 - Tdap) DTaP/Tdap/Td Vaccines (1 - Tdap) [facility] Start: 09-15-2000 Screening for malignant neoplasm of cervix [facility] Start: 09-15-1998 Hepatitis A Vaccines (1 of 2 - Risk 2-dose series) Hepatitis A Vaccines (1 of 2 - Risk 2-dose series) [facility] Start: 09-15-1998 Hepatitis B Vaccine (1 of 3 - 19+ 3-dose series) Hepatitis B Vaccine (1 of 3 - 19+ 3-dose series) [facility] Start: 09-15-1998 Hepatitis B Vaccines (1 of 3 - 19+ 3-dose series) Hepatitis B Vaccines (1 of 3 - 19+ 3-dose series) [facility] Start: 09-15-1997 Annual PCP Team Chronic Disease Visit Annual PCP Team Chronic Disease Visit [facility] Start: 09-15-1997 Depression Screening Depression Screening [facility] Start: 09-15-1997 Hepatitis C screening Hepatitis C Screening [facility] Start: 09-15-1997 HIV screening HIV Screening [facility] Start: 09-15-1980 MMR Vaccines (1 of 1 - Standard series) MMR Vaccines (1 of 1 - Standard series) [facility] Start: 1979 Creatinine measurement Creatinine Level [facility] Start: 1979 Echocardiography Echocardiogram [facility] Start: 1979 HIV screening HIV Screening [facility] Start: 1979 Lipid panel Lipid Panel [facility] Start: 1979 Potassium measurement Potassium Level [facility] Start: 1979 Yearly Adult Physical Yearly Adult Physical [facility] Angiotensin converti ng enzyme [Enzymatic activity/volume] in Serum or Plasma [facility] Antibody to lupus La protein measurement [facility] Antibody to SS-A measurement [facility] Blood ammonia measurement neto [facility] reactive protein [ Mass/volume] in Serum or Plasma [facility] CBC W Auto Different ial panel - Blood [facility] Celiac disease screen [facility] Ceruloplasmin [Mass/ volume] in Serum or Plasma [facility] Clam IgE Ab [Units/v olume] in Serum [facility] Clostridioides diffi cile DNA [Presence] in Unspecified specimen by BIMAL with probe detection [facility] Codfish IgE Ab [Unit s/volume] in Serum [facility] Colonoscopy [facility] Comprehensive metabo lic 2000 panel - Serum or Plasma [facility] Copper [Moles/volume ] in Serum or Plasma [facility] Fox IgE Ab [Units/v olume] in Serum [facility] Cow milk IgE Ab [Uni ts/volume] in Serum [facility] DNA double strand Ab [Units/volume] in Serum [facility] ECG 12 lead ECG 12 lead ECG Routine Heart failure, unspecified 08/23/2024 12:[address] [facility] Service Area Work Phone: Egg white [facility] Erythrocyte sedimentation rate [facility] Ferritin [Mass/volum e] in Serum or Plasma [facility] Gastrin [Mass/volume ] in Serum or Plasma [facility] Giardia lamblia Ag [ Presence] in Stool by Immunoassay [facility] Haptoglobin [Mass/vo lume] in Serum or Plasma [facility] Hemoglobin A1c/Hemog lobin.total in Blood [facility] IgG subclass panel [ Mass/volume] - Serum [facility] Immunoglobulin measurement [facility] Iron [Mass/mass] in Unspecified specimen [facility] Lactate dehydrogenas e measurement [facility] Lactoferrin [Presenc e] in Stool by Immunoassay [facility] Magnesium measurement [facility] MR Biliary ducts and Pancreatic duct [facility] MRI of small intestine [facility] Nucleic acid assay [facility] Ova OR parasites identification [facility] Patient Education [facility] Work Phone: Patient referral [facility] Work Phone: Peanut IgE Ab [Units /volume] in Serum [facility] Protein measurement [facility] Prothrombin time [facility] Radionuclide gastric emptying study [facility] Reticulocyte count [facility] Scallop [facility]ST [facility] Serum immunofixation [facility] Sesame seed RAST [facility] Shrimp IgE Ab [Units /volume] in Serum [facility] Soybean IgE Ab [Unit s/volume] in Serum [facility] Thyroid stimulating hormone measurement [facility] US Heart [facility] Wheat IgE Ab [Units/ volume] in Serum [facility] Immunizations Immunization Date Immunization Notes Care Provider Fa eliecer 08-01-2020 Covid (Moderna) Dr. Dex Wilkinson MD Work Phone: [facility] 07-01-2020 Covshlomo (Moderna) Dr. Dex Wilkinson MD Work Phone: [facility] 01-28-2020 influenza virus vacc ine, unspecified formulation [facility] 01-12-2014 influenza, seasonal, injectable, preservative free [facility] Work Phone: 01-12-2014 influenza virus vacc ine, unspecified formulation Radu Kay MD Work Phone: [facility] Work Phone: 01-03-2013 influenza virus vacc ine, unspecified formulation [facility] 04-05-2011 pneumococcal polysaccharide vaccine, 23 valent [facility] 12-16-2008 influenza virus vacc ine, unspecified formulation [facility] Work Phone: Payers Date Payer Category Payer Managed Care (Private) [employer] [id number] 2024 Unknown [id number] 2023 Self-pay 2023 [facility] [id number] 2023 Unknown [id number] 1979 Unknown [id number] 1979 Unknown [id number] 1979 Unknown [id number] Unknown [facility] [id number] Unknown [id number] Unknown [id number] Unknown [id number]. 462 Unknown [id number]. 462 Unknown [id number] 462 Unknown [id number] Unknown [id number] 462 Unknown [id number] Unknown [id number] 2.16.840.1.109438.3.579.2. 462 Unknown [id number] 2.16.840.1.900474.3.579.2. 462 Unknown [id number] 2.16.840.1.740668.3.579.2. 462 Unknown [id number] 2.16.840.1.394838.3.579.2. 462 Unknown [id number] 2.16840.1.659150.3.579.2. 462 Unknown [id number] 2.16840.1.501910.3.579.2. 462 Unknown [id number] 2.840.1.726728.3.579.2. 462 Unknown [id number] 2.840.1.847590.3.579.2. 462 Unknown [id number] 2.840.1.610459.3.579.2. 462 Unknown [id number] 2.840.1.682971.3.579.2. 462 Unknown [id number] 2.840.1.116631.3.579.2. 462 Unknown [id number] 2.840.1.624199.3.579.2. 462 Unknown [id number] 2.16840.1.849587.3.579.2. 462 Unknown [id number] 2.840.1.111488.3.579.2. 462 Unknown [id number] 2.16840.1.462161.3.579.2. 462 Unknown [id number] 2.16840.1.602390.3.579.2. 462 Unknown [id number] 2.16840.1.327460.3.579.2. 462 Unknown [id number] 2.16840.1.844902.3.579.2. 462 Unknown [id number] 2.16840.1.218148.3.579.2. 462 Unknown [id number] 2.16.840.1.873583.3.579.2. 462 Unknown [id number] 2.16.840.1.116200.3.579.2. 462 Unknown [id number] 2.16.840.1.571363.3.579.2. 462 Unknown [id number] 2.16.840.1.510407.3.579.2. 462 Unknown [id number] 2.16.840.1.698967.3.579.2. 462 Unknown [id number] 2.16.840.1.781358.3.579.2. 462 Unknown [id number] 2.16.840.1.508401.3.579.2. 462 Unknown [id number] 2.16.840.1.620887.3.579.2. 462 Unknown [id number] 2.16.840.1.895966.3.579.2. 462 Unknown [id number] 2.16.840.1.365468.3.579.2. 462 Unknown [id number] 2.16.840.1.449030.3.579.2. 462 Unknown [id number] 2.16.840.1.114322.3.579.2. 462 Unknown [id number] 2.16.840.1.203082.3.579.2. 462 Unknown [id number] 2.16.840.1.679296.3.579.2. 462 Unknown [id number] 2.16.840.1.906397.3.579.2. 462 Unknown [id number] 2.16.840.1.520876.3.579.2. 462 Unknown [id number] 2.16.840.1.008764.3.579.2. 462 Social History Date Type Detail Facility [facility] Work Phone: Start: 11-02-2021 End: 07-04-2023 Tobacco smoking status NHIS Unknown if ever smoked [facility] Start: 1980 Sex Assigned At Female W [facility] Start: 1980 Sex Assigned At Not on file [facility] Start: 07-25-2024 End: 08-15-2024 Gender identity Not on file [facility] Start: 10-31-2023 Tobacco smoking status Light tobacco smoker (finding) [facility] Start: 10-12-2021 End: 07-01-2024 Sex Female (finding) [facility] Start: 07-01-2024 End: 08-20-2024 Tobacco smoking status NHIS Smokes tobacco daily (finding) [facility] Start: 03-14-1982 History of tobacco use Cigarette Smoker [facility] Start: 04-16-2020 End: 08-15-2024 Cigarettes smoked current (pack per day) - Reported 0.3 [facility] Start: 04-16-2020 End: 08-15-2024 Tobacco use and exposure Smokeless tobacco non-user [facility] Start: 07-25-2024 Alcoholic beverage intake Current non-drinker of alcohol (finding) [facility] Has the Vpon, gas, oil, or water [employer] threatened to shut off services in your home in past 12Mo No [facility] PHQ2 Score [facility] worried whether (my/our) food would run out before (I/we) got money to buy more. Never true [facility] Start: 09-18-2018 Tobacco Comment since age 12 yrs [facility] Start: 08-05-2024 End: 08-15-2024 Exposure to SARS-CoV-2 (event) Not sure [facility] NEGATED: Highlighted row Not [facility] Medical Equipment Procedure Code Equipment Code Equipment Origin al Text Equipment Identifier Dates ERCP (endoscopic retrograde cholangiopancreato graphy) [id number] FDA Start: 08-21-2024 ERCP (endoscopic retrograde cholangiopancreato graphy) ([id number]) [id number] FDA Start: 08-21-2024 [id number] Visi a Af Mri [id number] Start: 10-29-2016 Lead Sprint Quat tro Secure S 55cm Pacing Df-4 Tripolar Screw Defibrillator - [id number] Start: 10-29-2016 Comment on above: Description: Right v entrical lead Defib-Vr [id number] Visia Mri Af - [id number] Start: 10-29-2016 FDA Start: 10-29-2016 FDA Start: 10-29-2016 FDA Start: 10-29-2016 FDA Start: 10-29-2016 Goals Date Patient Goal Desired Activity /State Functional Status Date Assessment Result Facility 08-24-2024 Functional status Ambulates [facility] Work Phone: 07-27-2024 Are you deaf, or do you have serious difficulty hearing No 07/27/2024 9:19 AM Zaida Morales, JAJA No [facility] 07-27-2024 Are you blind, or do you have serious difficulty seeing, even when wearing glasses No 07/27/2024 9:19 AM Zaida Morales RN No [facility] 07-27-2024 Do you have serious difficulty walking or climbing stairs No 07/27/2024 9:19 AM Zaida Morales, JAJA [facility] 07-27-2024 Do you have difficul ty dressing or bathing No 07/27/2024 9:19 AM Zaida Morales, JAJA No [facility] 07-27-2024 Because of a physica l, mental, or emotional condition, do you have difficulty doing errands alone such as visiting a physician's office or shopping No 07/27/2024 9:19 AM Zaida Morales, JAJA No [facility] 07-24-2024 Functional status Up ad petey [facility] Work Phone: 07-22-2024 Functional status Well [facility] Work Phone: 07-08-2024 Are you deaf, or do you have serious difficulty hearing No 07/08/2024 3:50 PM Lor Zamorano, JAJA No [facility] 07-08-2024 Are you blind, or do you have serious difficulty seeing, even when wearing glasses No 07/08/2024 3:50 PM EDLor Mckinley RN No [facility] 07-08-2024 Do you have serious difficulty walking or climbing stairs No 07/08/2024 3:50 PM EDT Lor Pham RN No [facility] 07-08-2024 Do you have difficul ty dressing or bathing No 07/08/2024 3:50 PM EDT Lor Pham RN No [facility] 07-08-2024 Because of a physica l, mental, or emotional condition, do you have difficulty doing errands alone such as visiting a physician's office or shopping No 07/08/2024 3:50 PM EDT Lor Pham RN No [facility] 10-31-2023 Functional Status Repositions [facility] Mental Status Date Assessment Result Facility 08-24-2024 Cognitive function Voice/Name;Touch/Shaki ng [facility] Work Phone: 07-27-2024 Because of a physica l, mental, or emotional condition, do you have serious difficulty concentrating, remembering, or making decisions No 07/27/2024 9:19 AM Zaida Morales RN No [facility] 07-24-2024 Cognitive function Voice/Name [facility] Work Phone: 07-12-2024 Cognitive function Voice/Name [facility] Work Phone: 07-08-2024 Because of a physica l, mental, or emotional condition, do you have serious difficulty concentrating, remembering, or making decisions No 07/08/2024 3:50 PM EDLor Mckinley RN No [facility] 05-12-2024 Cognitive function Awake;Alert;A ppropriate;Fol lows Commands [facility] Work Phone: 12-25-2022 Cognitive function Voice/Name [facility] Work Phone: 12-16-2021 Cognitive function Level Of Cons ciousness Awake;Alert;Appropriate;Fol lows Commands [facility] Work Phone: Clinical Notes 09-18-2020 to 08-28-2024 Note Date & Type Note Facility 08-28-2024 Nuclear medicine Diagnostic study not e [facility] 08-24-2024 Discharge summary Note Date/Time August 24, 2024 3:36pm [facility] Medical Records Department [address] [place] [address] Instructions for Home/Discharge Instructions 08/24/24 1312 MR#: [id number] Acct: [id number] Name: MICHELLE MITCHELL Rep #:[id number] : 1980 43 From: Taylor Tejeda MD PCP: Dr. Dex Wilkinson MD Status:A DM IN Discharge Instructions Diet Discharge Diet: Low fat / Low cholesterol DC O2, CPAP, BIPAP needs Home O2 Discharge instructions: No Dressing / Incision Discharge Activity: Return to Normal Activity Weight Bearing Status: Weight bearing as tolerated Dressing / Incision Call your doctor if you observe: Fever of 101 or Higher, Shortness of breath, Dizziness, Swelling in the ankles and Chest pain Follow Up Care Test Results: Test results from this visit will be discussed in further detail at your follow-up appointment, if applicable. Discharge Plan Admission Admit Date/Time: 08/20/24 17:47 Primary Reason for Your Visit: acute choledocholithiasis Attending Provider: Taylor Tejeda Primary Care Provider: Dex Wilkinson Consulting Providers: Lopez Larios Instructions Patient Instructions: ED Gallstones with Biliary Colic Discharge Orders/Prescriptions Prescriptions: New oxycodone 5 mg Tablet 5 mg PO Q4H PRN PRN (Reason: Pain Score 4-10) 3 Days Qty: 12 0RF Continued metoprolol succinate 25 mg tablet extended release 24 hr 25 mg PO QDAY meloxicam 15 mg tablet 15 mg PO QDAY Qty: 30 3RF alprazolam 0.5 mg tablet 0.5 mg PO BID Patient Comments: TAKE 1 TABLET BY MOUTH TWICE DAILY zolpidem 10 mg tablet 10 mg PO QHS sucralfate [Carafate] 1 gram tablet 1 g PO BIDCM pantoprazole 40 mg tablet,delayed release (DR/EC) 40 mg PO BID spironolactone 25 mg tablet 25 mg PO DAILY scopolamine base 1 mg over 3 days patch 3 day 1 patch topical Q3D Referrals / Follow Up: Dex Wilkinson MD [Primary Care Provider] - Within 1 Week Quang Myles DO [Med Staff - Active Staff] - Within 2 Weeks Disposition Disposition (needs filled in before D/C Order can be placed): Home, Self Care 08/24/24 1312<Electronically signed by Taylor Tejeda MD>Taylor Tejeda MD CC: Dr. Lopez Larios DO; Dr. Dex Wilkinson MD ~ Signed [facility] Work Phone: 1(145) 852-502406-13-2025 [facility]06-12-2025 Progress note Author Quang Myles [facility] Note Date/Time August 23, 2024 8:09 pm [facility] Medical Records Department [address] [place] [address] Progress Note 08/23/242003 MR#: [id number] Acct: [id number] Name: MICHELLE MITCHELL Rep #:[id number] : 1980 43 From: Quang Myles DO PCP: Dr. Dex Wilkinson MD Status:A DM IN Location: [facility] [id number] Progress Note Patient saying that she is still in a lot of abdominal pain. She had a repeat echocardiogram and it showed her EF was 30 to 35%. She underwent ERCP with removal of choledocholithiasis and brushings of the distal common bile duct and proximal pancreatic duct. She had 2 stents placed in her bile duct and pancreatic duct. LFTs are improving. Physical Exam Const alert and oriented x3 Constitutional Narrative: looks uncomfortable General Appearance: cooperative HEENT normocephalic, head/scalp atraumatic and hearing grossly normal bilaterally Eyes PERRL, EOMs intact bilaterally and conjunctivae normal Neck full ROM, supple and no JVD Lymph Lymphatic: no lymphedema noted Chest inspection of chest normal Resp normal respiratory effort, normal air movement, no use of accessory muscles and clear to auscultation bilaterally Cardio regular rate, regular rhythm, S1 normal heart sound, S2 normal heart sound, no murmurs and peripheral pulses 2+ throughout GI GI Narrative: Moild right upper quadrant tenderness with no guarding and no rebound tenderness. No palpable hepatomegaly Back/Spine normal ROM Extremity normal to inspection, full ROM, normal capillary refill and no clubbing, cyanosis or edema General Extremity: no tenderness to palpation of joints or extremities Skin no rashes or lesions noted General Skin Exam: no breakdown Neuro CN's II-XII intact bilaterally Motor Exam: general weakness Psych mental status grossly normal, thought process normal and cooperative Appearance: appropriate Assessment & Plan Assessment/Plan (1) Abdominal pain: QUALIFIERS: Abdominal location: unspecified location Qualified Code(s): R10.9 - Unspecified abdominal pain (2) Elevated liver enzymes: (3) Dilated pancreatic duct: PLAN: Plan Patient is a 43-year-old female who presented to [facility] ED on 08/20/2024 with worsening RUQ abdominal pain. Worsening RUQ abdominal pain with elevated LFTs ? Admit under inpatient status to PCU. GI consulted. Presented with worsening abdominal pain and uptrending LFTs. Prior CT abdomen pelvis showed hepatomegalywith double duct sign. Liver ultrasound on this admission again showed hepatomegaly with pancreatic duct dilation. 08/23/2024-Findings: The assembler dc field yoke film was normal. The esophagus was successfully intubated under direct vision. The scope was advanced to a normal major papilla in the descending duodenum without detailed examination of the pharynx, larynx and associated structures, and upper GI tract. The upper GI tract was grossly normal. The bile duct was deeply cannulated with the short-nosed traction sphincterotome. Contrast was injected. I personally interpreted the bile duct images. Ductal flow of contrast was adequate. Image quality was adequate. Contrast extended to the entire biliary tree. The biliary orifice was stenotic. This appeared indeterminate (neither benign nor malignant). The lower third of the main bile duct contained a single localized stenosis 6 mm in length. A cholecystectomy had been performed. A long 0.025 inch Jagwire was passed into the biliary tree. A 5 mm biliary sphincterotomy was made with a traction (standard) sphincterotome using ERBE electrocautery. There was no post-sphincterotomy bleeding. The biliary tree was swept with a 12 mm balloon starting at the upper third of the main bile duct, middle third of the main bile duct, lower third of the main duct, bifurcation and left main hepatic duct. Sludge was swept from the duct. All stones were removed. Cells for cytology were obtained by brushing in the lower third of the main bile duct. One 10 Fr by 7 cm temporary stent was placed 5 cm into the common bile duct. Bile flowed through the stent. The stent was in good position. The ventral pancreatic duct was deeply cannulated. Contrast was injected. Opacification of the ventral pancreatic duct in the head of the pancreas was successful. The maximum diameter of the ducts was 6 mm. The ventral pancreatic duct in the head of the pancreas was normal. The ventral pancreatic duct in the head of the pancreas and pancreatic duct in the genu of the pancreas contained a mild stenosis. The ventral pancreatic duct in the head of the pancreas contained a single stone. The pancreatic duct in the genu of the pancreas was partially obstructed. The pancreatic duct in the genu of the pancreas was dilated mildly. A long 0.025 inch Jagwire was passed into the ventral pancreatic duct. A 5 mm ventral pancreatic sphincterotomy was made with a traction (standard) sphincterotome using ERBE electrocautery. There was no post-sphincterotomy bleeding. To discover objects, the biliary tree was swept with a 6 mm balloon starting at the main pancreatic duct. One stone was removed. All stones remained. One 7 Fr by 5 cm temporary stent was placed 5 cm into the ventral pancreatic duct. Clear fluid flowed through the stent. The stent was in good position. Cells for cytology were obtained by brushing in the ventral pancreatic duct in the head of the pancreas. Impression: - Biliary papillary stenosis, indeterminate. - A single localized biliary stricture was found in the lower third of the main bile duct. - The patient has had a cholecystectomy. - Mild dilatation of the the pancreatic duct in the genu of the pancreas was found. 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 - A pancreatic obstruction was found in the genu of the pancreas. - Choledocholithiasis was found. Complete removal was accomplished by biliary sphincterotomy and balloon extraction. - A single pancreatic stone was found. - A biliary sphincterotomy was performed. - The biliary tree was swept. - Cells for cytology obtained in the lower third of the main duct. - One temporary stent was placed into the common bile duct. - A pancreatic sphincterotomy was performed. - The biliary tree was swept. - One temporary stent was placed into the ventral pancreatic duct. - Cells for cytology obtained in the ventral pancreatic duct in the head of the pa Since the patient still has abdominal pain I will order repeat CT scan of the abdomen pelvis. 08/23/242007 <Electronically signed by Quang Myles DO> Quang Myles DO Cosigner Signature (if applicable): CC: ~ Signed ADDENDUM by Quang Myles DO on 08/23/24 at 2007 Visit Charges Inpatient E&M: 20752 Subs Hosp L3 08/23/242007 <Electronically signed by Quang arciniega DO> Date _ Quang Myles DO Cosigner Signature (if applicable): Date cc: ~* Signed [facility] Work Phone: 1(302) 535-887106-12-2025 Radiology Diagnostic study [facility]06-12-2025 Progress note Author [facility] Note Date/Time August 23, 2024 5:29 pm [facility] Medical Records Department [address] [place] [address] Progress Note 08/23/24 1725 MR#: [id number] Acct: [id number] Name: ALBADELMIMICHELLE Rep #:[id number] : 1980 43 From: Taylor Tejeda MD PCP: Dr. Dex Wilkinson MD Status:A DM IN Location: [address] 1 Subjective Subjective Patient seen and examined. He was still complaining of abdominal pain. She said she also had pain over her right upper back. Patient says nothing works for her pain apart from Dilaudid. I saw the patient with her nurse by her bedside. Review of systems otherwise negative. Objective Data Objective Data Vital Signs: Vital Signs Temp Pulse Resp BP Pulse Ox O2 Del Method O2 Flow Rate 97 F L 95 18 100/54 L 94 Room Air 97 08/23/24 14:21 08/23/24 14:21 08/23/24 14:21 08/23/24 14:21 08/23/24 14:21 08/23/24 14:21 08/22/24 08:40 Oxygen Flow Rate (L/min) 97 Oxygen Delivery Method Room Air Weight: 126 lb 8.725 oz Body Mass Index (BMI) 21.7 Intake & Output: Intake and Output for Last 24 Hours 08/21/24 08/22/24 08/23/24 23:59 23:59 23:59 Intake Total 550 / 950 2050 / 2300 1222.75 / 1222.75 Balance 550 / 950 2050 / 2300 1222.75 / 1222.75 Lab / Micro Data 08/23/24 05:40 08/23/24 05:40 Labs: Laboratory Results - last 24 hr 08/23/24 05:40: WBC 12.7 H, RBC 4.03 L, Hgb 12.7, Hct 38.3, MCV 95.0, MCH 31.5, MCHC 33.2, RDW Std Deviation 46.5 H, RDW Coeff of Damon 13.5, Plt Count 274, MPV 10.4, Immature Gran % (Auto) 0.500, Neut % (Auto) 80.5 H, Lymph % (Auto) 10.7 L,Glades % (Auto) 7.0, Eos % (Auto) 1.0, Baso % (Auto) 0.3, Absolute Neuts (auto) 10.2 H, Absolute Lymphs (auto) 1.35, Nucleated RBC % 0, Sodium 135, Potassium 4.2, Chloride 100, Carbon Dioxide 23.1, Anion Gap 12, BUN 7, Creatinine 0.75, Estim Creat Clear Calc 82.66, Est GFR (MDRD) Non-Af 100, BUN/Creatinine Ratio 9.0 L, Glucose 104 H, Calcium 9.1, Total Bilirubin 0.59, AST 115 H, ALT 277 H, Alkaline Phosphatase 188 H, Total Protein 7.0, Albumin 4.0, Globulin 3.0, Albumin/Globulin Ratio 1.3 Physical Exam Const alert and oriented x3 Constitutional Narrative: frail, looks uncomfortable due to abdominal pain. In moderate distress General Appearance: cooperative HEENT normocephalic, head/scalp atraumatic and hearing grossly normal bilaterally Eyes EOMs intact bilaterally and conjunctivae normal Neck full ROM, supple and no JVD Lymph Lymphatic: no lymphedema noted Chest inspection of chest normal Resp normal respiratory effort, normal air movement, no use of accessory muscles and clear to auscultation bilaterally Cardio regular rate, regular rhythm, S1 normal heart sound, S2 normal heart sound, no murmurs and peripheral pulses 2+ throughout GI GI Narrative: minimal RUQ tenderness, however she does have some CVA tenderness. No palpable organomegaly Back/Spine normal ROM Extremity normal to inspection, full ROM, normal capillary refill and no clubbing, cyanosis or edema General Extremity: no tenderness to palpation of joints or extremities Skin no rashes or lesions noted General Skin Exam: no breakdown Neuro CN's II-XII intact bilaterally Motor Exam: general weakness Psych mental status grossly normal, thought process normal and cooperative Appearance: appropriate Assessment & Plan Assessment/Plan (1) Elevated liver enzymes: (2) Dilated pancreatic duct: PLAN: Plan #Acute choledocholithiasis * She was admitted with right upper quadrant abdominal pain. 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 Choledocholithiasis was also found and complete removal was accomplished by biliary sphincterotomy and balloon extraction and a single pancreatic stone was found. Temporary stents placed in the common bile duct and another 1 in the ventral pancreatic duct. * CT of the abdomen and pelvis showed hepatomegaly with double duct sign. Liver ultrasound showed hepatomegaly with pancreatic duct dilatation. * IV Zofran for nausea. She also has a scopolamine patch. Continue gentle hydration with IVF. * GI on board. * she still complains of abdominal pain and right CVA pain. Will get CT without contrast to evaluate for kidney stones. * IV morphine dc'd and patient now on IV dilaudid. * #Chronic heart failure with reduced ejection fraction in setting of familial hypertrophic cardiomyopathy * Has ICD in place. Follows with [facility] cardiology. * 2D echo showed EF of 35% with mild concentric left ventricular hypertrophy and global ventricular hypokinesis with stage II diastolic dysfunction. * Chest x-ray showed no evidence of volume overload. On spironolactone and metoprolol #Anxiety and insomnia: On alprazolam and zolpidem GERD: PPI DVT prophylaxis: Lovenox Charges/Coding Visit Charges Inpatient E&M: 65231 Subs Hosp L2 08/23/24 1729 <Electronically signed by Taylor Tejeda MD> Taylor Tejeda MD Cosigner Signature (if applicable): CC: ~ Signed [facility] Work Phone: 1(758) 731-759206-12-2025 Radiology Diagnostic study [facility]06-11-2025 Progress note Author Taylor [facility] Note Date/Time August 22, 2024 5:59 pm [facility] Medical Records Department [address] [place] [address] Progress Note 08/22/24 1211 MR#: [id number] Acct: [id number] Name: MICHELLE MITCHELL Rep #:[id number] : 1980 43 From: Taylor Tejeda MD PCP: Dr. Dex Wilkinson MD Status:A DM IN Location: [place] [address] Subjective Subjective Patient seen and examined. She still complaining of RUQ pain. She admits to nausea,but denied any vomiting. Review of systems is otherwise negative. She hadERCP yesterday which showed choledocholithiasis; she had biliary stents inserted. Liver enzymes have started trending downwards. Objective Data Objective Data Vital Signs: Vital Signs Temp Pulse Resp BP Pulse Ox O2 Del Method 97.1 F L 77 18 122/64 H 99 Room Air 08/22/24 06:00 08/22/24 10:33 08/22/24 06:00 08/22/24 06:00 08/22/24 06:00 08/22/24 02:30 Oxygen Delivery Method Room Air Weight: 126 lb 8.725 oz Body Mass Index (BMI) 21.7 Intake & Output: Intake and Output for Last 24 Hours 08/20/24 08/21/24 08/22/24 23:59 23:59 23:59 Intake Total 550 / 950 650 / 650 Balance 550 / 950 650 / 650 Lab / Micro Data 08/22/24 06:21 08/22/24 06:21 Labs: Laboratory Results - last 24 hr 08/22/24 06:21: WBC 11.1 H, RBC 4.12 L, Hgb 12.9, Hct 39.3, MCV 95.4, MCH 31.3, MCHC 32.8, RDW Std Deviation 48.1 H, RDW Coeff of Damon 13.8, Plt Count 291, MPV 10.0, Immature Gran % (Auto) 0.500, Neut % (Auto) 77.7 H, Lymph % (Auto) 12.5 L,Glades % (Auto) 8.0, Eos % (Auto) 0.8, Baso % (Auto) 0.5, Absolute Neuts (auto) 8.6 H, Absolute Lymphs (auto) 1.39, Nucleated RBC % 0, Sodium 135, Potassium 4.1, Chloride 101, Carbon Dioxide 22.1, Anion Gap 12, BUN 12, Creatinine 0.98, Estim Creat Clear Calc 63.26, Est GFR (MDRD) Non-Af 73, BUN/Creatinine Ratio 12.0, Glucose 96, Calcium 9.5, Total Bilirubin 0.89, AST 284 H, ALT 368 H, Alkaline Phosphatase 199 H, Total Protein 6.9, Albumin 4.0, Globulin 2.8, Albumin/Globulin Ratio 1.4 Radiography Diagnostic Testing: Radiology Impression Endo Retro Cholangiopancreatogram 08/21/24 18:30 IMPRESSION: As above. Reading Location: [place] [address] Physical Exam Const alert and oriented x3 Constitutional Narrative: frail, looks uncomfortable due to abdominal pain General Appearance: cooperative HEENT normocephalic, head/scalp atraumatic and hearing grossly normal bilaterally Eyes PERRL, EOMs intact bilaterally and conjunctivae normal Neck full ROM, supple and no JVD Lymph Lymphatic: no lymphedema noted Chest inspection of chest normal Resp normal respiratory effort, normal air movement, no use of accessory muscles and clear to auscultation bilaterally Cardio regular rate, regular rhythm, S1 normal heart sound, S2 normal heart sound, no murmurs and peripheral pulses 2+ throughout GI GI Narrative: Moild right upper quadrant tenderness with no guarding and no rebound tenderness. No palpable hepatomegaly Back/Spine normal ROM Extremity normal to inspection, full ROM, normal capillary refill and no clubbing, cyanosis or edema General Extremity: no tenderness to palpation of joints or extremities Skin no rashes or lesions noted General Skin Exam: no breakdown Neuro CN's II-XII intact bilaterally Motor Exam: general weakness Psych mental status grossly normal, thought process normal and cooperative Appearance: appropriate Assessment & Plan Assessment/Plan (1) Elevated liver enzymes: (2) Dilated pancreatic duct: PLAN: Plan #Acute hepatitis * due to acute choledocholithiasis. She was admitted with right upper quadrant abdominal pain. 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 Choledocholithiasis was also found and complete removal was accomplished by biliary sphincterotomy and balloon extraction and a single pancreatic stone was found. Temporary stents placed in the common bile duct and another 1 in the ventral pancreatic duct. * CT of the abdomen and pelvis showed hepatomegaly with double duct sign. Liver ultrasound showed hepatomegaly with pancreatic duct dilatation. * IV morphine as needed. IV Zofran for nausea. She also has a scopolamine patch. Continue gentle hydration with IVF. * GI on board. * #Chronic heart failure with reduced ejection fraction in setting of familial hypertrophic cardiomyopathy * Has ICD in place. Follows with [facility] cardiology. * 2D echo showed EF of 35% with mild concentric left ventricular hypertrophy and global ventricular hypokinesis with stage II diastolic dysfunction. * Chest x-ray showed no evidence of volume overload. On spironolactone and metoprolol #Anxiety and insomnia: On alprazolam and zolpidem GERD: PPI DVT prophylaxis: Lovenox Charges/Coding Visit Charges Inpatient E&M: 71493 Subs Hosp L2 08/22/24 3045 <Electronically signed by Taylor Tejeda MD> Taylor Tejeda MD Cosigner Signature (if applicable): CC: ~ Signed [facility] Work Phone: 1(470) 932-810106-11-2025 Consult note Author Tony Dumont [facility] Note Date/Time August 22, 2024 6:53 am [place] Medical Records Department [address] [place] [address] Anesthesia Postop Eval II 08/22/24 0653 MR#: [id number] Acct: [id number] Name: MICHELLE MITCHELL Rep #:[id number] : 1980 43 From: Tony Dumont MD PCP: Dr. Dex Wilkinson MD Status:A DM IN Y Race: C Location: [place] [address] 2-1 Anesthesia Postop Eval I Sum Postop Eval Completion status Anesthesia document: Postop Eval 1 completed: Yes Anesthesia Postop Eval I Summary Anesthesia Postop Eval I Summary: Anesthesia Postop Eval I: Assessment Summary 3 Airway patent Yes 08/21/24 19:28 Spontaneous unlabored Yes 08/21/24 19:28 respirations Mental status Awake 08/21/24 19:28 nausea No 08/21/24 19:28 Vomiting No 08/21/24 19:28 Anesthesia Postop Eval I: Fluid Summary Crystalloid volume administer 200 08/21/24 19:28 (ml) Colloids volume administered ( ml) Blood Product volume administered (ml) Total IV fluid infused 200 08/21/24 19:28 Anesthesia Postop Eval I: Summary Notes Anesthesia Complication No 08/21/24 19:28 Anesthesia Complication Comment: Post-operative progress note Anesthesia: Postop Eval II Evaluation Mental status: Awake Pain Level: 0 nausea: No Vomiting: No 08/22/24 0653 <Electronically signed by Tony Dumont MD > Date _ Tony Dumont MD [facility] Signature: Date CC: ~ Signed [facility] Work Phone: 1([phone] 152-548406-10-2025 Consult note Author Tony Dumont [facility] Note Date/Time August 21, 2024 7:28 pm [place] Medical Records Department [address] [address] Anesthesia Postop Eval I 08/21/241926 MR#: [id number] Acct: [id number] Name: MICHELLE MITCHELL Rep #:[id number] : 1980 43 From: Tony Dumont MD PCP: Dr. Dex Wilkinson MD Status:A DM IN Y Race: C Location: [place] [address] 21 Anesthesia: Postop Eval I Current Vital Signs Temperature: 99.6 F Pulse Rate: 86 Blood Pressure: 145/85 Respiratory Rate: 18 Pulse Ox: 95 Oxygen Delivery Method: Room Air Assessment Airway patent: Yes Spontaneous unlabored respirations: Yes Mental status: Awake nausea: No Vomiting: No Anesthesia Complication: No Fluid Hydration Crystalloid volume administer (ml): 200 Total IV fluid infused: 200 Progress Note Anesthesia document: Postop Eval 1 completed: Yes 08/21/241927 <Electronically signed by Tony Dumont MD > Date _ Tony Dumont MD [facility] Signature: Date CC: ~ Signed [facility] Work Phone: [phone]) 321-811406-10-2025 Radiology Diagnostic study [facility]06-10-2025 Progress note Author [facility] Note Date/Time August 21, 2024 5:30 pm [facility] Medical Records Department [address] [place] [address] Progress Note 08/21/241717 MR#: [id number] Acct: [id number] Name: MICHELLE MITCHELL Rep #:[id number] : 1980 43 From: Taylor Tejeda MD PCP: Dr. Dex Wilkinson MD Status:A DM IN Location: [place] [address] Subjective Subjective Patient seen and examined. She still complains of right upper quadrant pain. She denies any vomiting but still admits to severe nausea. She denies any lightheadedness or dizziness or diarrhea. Review of systems otherwise negative. Gastroenterology on board. Liver enzymes continue to trend upwards. Objective Data Objective Data Vital Signs: Vital Signs Temp Pulse Resp BP Pulse Ox O2 Del Method 96.9 F L 61 16 128/67 H 99 Room Air 08/21/24 16:55 08/21/24 16:55 08/21/24 16:55 08/21/24 16:55 08/21/24 16:55 08/21/24 16:39 Oxygen Delivery Method Room Air Weight: 126 lb 8.725 oz Body Mass Index (BMI) 21.7 Intake & Output: Intake and Output for Last 24 Hours 08/19/24 08/20/24 08/21/24 23:59 23:59 23:59 Intake Total 550 / 550 Balance 550 / 550 Lab / Micro Data 08/21/24 05:42 08/21/24 05:42 Labs: Laboratory Results - last 24 hr 08/21/24 05:42: WBC 10.5, RBC 4.04 L, Hgb 12.6, Hct 39.1, MCV 96.8, MCH 31.2, MCHC 32.2, RDW Std Deviation 48.3 H, RDW Coeff of Damon 13.7, Plt Count 402, MPV 10.4, Sodium 135, Potassium 4.5, Chloride 100, Carbon Dioxide 22.0, Anion Gap 13, BUN 14, Creatinine 1.00, Estim Creat Clear Calc 61.99, Est GFR (MDRD) Non-Af71, BUN/Creatinine Ratio 13.5, Glucose 83, Calcium 9.5, Total Bilirubin 0.82, AST 535 H, ALT 383 H, Alkaline Phosphatase 197 H, Total Protein 7.1, Albumin 4.2,Globulin 2.9, Albumin/Globulin Ratio 1.4 Physical Exam Const alert and oriented x3 Constitutional Narrative: frail, looks uncomfortable due to abdominal pain HEENT head/scalp atraumatic, moist oral mucous membranes and oropharynx normal Eyes EOMs intact bilaterally Neck supple and no JVD Lymph Lymphatic: no lymphedema noted Resp normal respiratory effort, normal air movement and clear to auscultation bilaterally Cardio regular rate, regular rhythm, S1 normal heart sound, S2 normal heart sound and no murmurs GI GI Narrative: Moderate right upper quadrant tenderness with no guarding and no rebound tenderness. No palpable hepatomegaly Extremity normal capillary refill, no clubbing, cyanosis or edema and no calf tenderness General Extremity: no tenderness to palpation of joints or extremities Skin General Skin Exam: no breakdown Neuro CN's II-XII intact bilaterally Motor Exam: general weakness Psych thought process normal and cooperative Appearance: appropriate Assessment & Plan Assessment/Plan (1) Elevated liver enzymes: (2) Dilated pancreatic duct: PLAN: Plan #Acute hepatitis * Etiology is not clear. She was admitted with right upper quadrant abdominal pain. Liver enzymes are elevated and have continued trending upwards especially the AST. * CT of the abdomen and pelvis showed hepatomegaly with double duct sign. Liver ultrasound showed hepatomegaly with pancreatic duct dilatation. * Patient currently n.p.o. and being hydrated with IV fluids. IV morphine as needed. IV Zofran for nausea. She also has a scopolamine patch. * GI on board. For MRCP today and then ERCP #Chronic heart failure with reduced ejection fraction in setting of familial hypertrophic cardiomyopathy * Has ICD in place. Follows with [facility] cardiology. * 2D echo showed EF of 35% with mild concentric left ventricular hypertrophy and global ventricular hypokinesis with stage II diastolic dysfunction. * Chest x-ray showed no evidence of volume overload. On spironolactone and metoprolol #Anxiety and insomnia: On alprazolam and zolpidem GERD: PPI DVT prophylaxis: Lovenox Charges/Coding Visit Charges Inpatient E&M: 52975 Subs Hosp L3 08/21/24 1730 <Electronically signed by Taylor Tejeda MD> Taylor Tejeda MD Cosigner Signature (if applicable): CC: ~ Signed [facility] Work Phone: 1([phone] 350-803206-10-2025 Progress note Author Quang Friend [facility] Note Date/Time August 21, 2024 5:27 pm [facility] Medical Records Department [address] [place] [address] Progress Note 08/21/24 1724 MR#: [id number] Acct: [id number] Name: MICHELLE MITCHELL Angelo Rep #:[id number] : 1980 43 From: Quang Myles DO PCP: Dr. Dex Wilkinson MD Status:A DM IN Location: [place] [address] Progress Note Patient still complains of the lower abdominal pain. She denies any chest pain or shortness of breath. She was unable to get MRI without turning off her pacemaker. After weighing risk and benefits due to her low ejection fraction of 10 to 20% it was decided to go forth with ERCP and possibly get MRCP if absolutely needed. Physical Exam Const alert, oriented x3, no apparent distress and average body habitus General Appearance: cooperative HEENT normocephalic, head/scalp atraumatic, hearing grossly normal bilaterally, nasal mucous membranes and turbinates normal and moist oral mucous membranes Eyes PERRL, EOMs intact bilaterally and conjunctivae normal Neck full ROM Chest inspection of chest normal Resp normal respiratory effort, normal air movement, no use of accessory muscles and clear to auscultation bilaterally Cardio regular rate, regular rhythm, no murmurs and peripheral pulses 2+ throughout GI GI Narrative: Abdomen soft and nondistended. Only diffuse tenderness to palpation noted on exam. No rebound tenderness or guarding noted. 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 Patient will undergo therapeutic and diagnostic ERCP. She was explained alternatives, risk and benefits include understanding bleeding, infection, sepsis, perforation, need for brain surgery . She will have an ASA of 3. Visit Charges Inpatient E&M: 61306 [facility] Hosp 08/21/247 <Electronically signed by Quang Myles DO> [facility] Myles [facility] Signature (if applicable): CC: ~ Signed [facility] Work Phone: [phone]) 488-943106-10-2025 Procedure [facility] 08-21-2024 Consult note Author Tony Dumont [facility] Note Date/Time August 21, 2024 4:55 pm [place] Medical Records Department [address] [place] [address] Pre-Anesthesia Evaluation 08/21/24 2529 MR#: [id number] Acct: [id number] Name: MICHELLE MITCHELL Rep #:[id number] : 1980 43 From: Tony Dumont MD PCP: Dr. Dex Wilkinson MD Status:A DM IN Y Race: C Location: [place] [address] 2-1 ASA Classification* ASA Classification ASA Classification: 3 and E Assessment & Plan Anesthesia* Anesthesia Assessment Anesthesia Assessment: Discussed sedation and/or anesthesia options, risks, benefits, and alternatives with patient/parents/legal guardian/POA. Questions invited. The patient/parents/legal guardian/POA seems to understand and agrees to proceedwith anesthesia plan. Reviewed the physical assessment, medical history, allergy history and patient home medications list prior to surgery/procedure/anesthetic and documented any changes. Performed airway and anesthesia risk assessments. Anesthesia Type Anesthesia Type: General (AICD in place. Consider etomidate.) Anesthesia Focused Assessment* Temperature: 96.9 F Pulse Rate: 61 Blood Pressure: 128/67 Respiratory Rate: 16 Pulse Ox: 99 Airway Assessment Mouth opens: >3 cm Mallampati Score: II Labs Anesthesia Preop lab: CBC WBC 10.5 K/mm3 (4.4-11.0) 08/21/24 05:42 08/21/24 RBC 4.04 M/mm3 (4.2-5.4) L 08/21/24 05:42 08/21/24 Hgb 12.6 g/dL (12.0-15.0) 08/21/24 05:42 08/21/24 Hct 39.1 % (37-47) 08/21/24 05:42 08/21/24 Plt Count 402 K/mm3 (150-450) 08/21/24 05:42 08/21/24 CHEMISTRY Potassium 4.5 mmol/L (3.3-5.1) 08/21/24 05:42 08/21/24 Sodium 135 mmol/L (133-145) 08/21/24 05:42 08/21/24 Magnesium 1.9 mg/dL (1.5-2.2) 07/20/24 23:47 07/20/24 Phosphorus 3.7 mg/dL (2.7-4.5) 07/21/24 05:30 07/21/24 BUN 14 mg/dL (4-19) 08/21/24 05:42 08/21/24 Creatinine 1.00 mg/dL (0.70-1.20) 08/21/24 05:42 08/21/24 Glucose 83 mg/dL (70-99) 08/21/24 05:42 08/21/24 TSH 2.360 uIU/mL (0.300-4.200) 08/08/24 09:33 0511/05 COAG PT 12.8 SECONDS (11.7-14.9) 08/08/24 09:33 Urine Test Negative Negative 08/11/24 10:40 08/11/24 Pre-Assessment Diagnosis/Proposed Procedure Planned Operative Procedure(s): ERCP Anesthesia History 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 When Was Last Pacemaker Check 07/04/2024 08/20/24 21:50 QUESTION #4 FULL TEXT: You/Your Family Experience fever (hyperthermia) with Anesthesia Last Oral Intake Last Oral intake: Last Oral Intake NPO since Meds taken in AM with sips of water? 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 - lead ruby on rails developer: PONV - lead ruby on rails developer Female HX of Motion Sickness HX of N/V After Surgery Non-Smoker Duration of Surgery greater than 60 minutes Number of Risk Factors PONV Score Height & Weight Height & Weight: Anesthesia: Height & Weight Height 5 ft 4 in 08/21/24 16:39 Weight: 57.4 kg 08/21/24 16:39 Body Mass Index (BMI) 21.7 08/21/24 16:39 Respiratory Assessment Respiratory Assessment - lead ruby on rails developer: Respiratory Tract Infection Hx - lead ruby on rails developer Hx Respiratory Tract Infection No 08/20/24 21:50 STOP Sleep Apnea STOP Sleep Apnea - lead ruby on rails developer: STOP Sleep Apnea - lead ruby on rails developer Hx Hypertension No 08/20/24 18:53 Hx Sleep Apnea No 08/20/24 18:53 CPAP BIPAP Do you snore loudly (louder Yes 08/20/24 18:53 than talking or can be heard Do you often feel tired/ Yes 08/20/24 18:53 fatigued/ sleepy during daytime? Has anyone observed you stop No 08/20/24 18:53 breathing during sleep? STOP Results Positive 08/20/24 18:53 QUESTION #5 FULL TEXT : Do you snore loudly (louder than talking or can be heard through closed doors)? 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 Specify any problems Hx of Preganancy in last 3 N/A 08/20/24 18:53 Months Nurse Filling Out Transfusion MLEACH3 08/20/24 18:53 & Questions: Date: 08/20/24 08/20/24 18:53 Time: 19:04 08/20/24 18:53 Patient unable to answer at this time (ie. confused, unrespo /Reproduction History /Reproductive History - lead ruby on rails developer: /Reproductive Hx- lead ruby on rails developer Hx Now No 08/21/24 08:33 Gestational Age (in weeks): EDC: Hx Hx Para Hx Section SAB No 08/21/24 08:33 Active Medications Active Medications: Current Medications Generic Name Dose Route Start Last Admin Trade Name Freq PRN Reason Stop Dose Admin Acetaminophen 650 mg 08/20/24 19:00 Acetaminophen 325 Mg Tablet PO Q6H PRN PRN Pain 1-10 Or Fever>100.7 Alprazolam 0.5 mg 08/20/24 22:00 08/21/24 11:18 Alprazolam 0.5 Mg Tablet PO Not Given BID [facility] Enoxaparin Sodium 40 mg 08/21/24 10:00 08/21/24 11:17 Enoxaparin 40 Mg/0.4 Ml Syringe SC Not Given DAILY [facility] Hydromorphone HCl 0.5 mg 08/20/24 19:00 08/21/24 13:28 Hydromorphone 0.5 Mg/0.5 Ml Syringe IV 0.5 mg Q4H PRN PRN Administration Pain Score 6-10 Sodium Chloride 250 mls @ 15 mls/hr 08/20/24 19:01 IV .[id number] PRN Saline Flush Sodium Chloride 250 mls @ 15 mls/hr 08/20/24 19:01 IV .[id number] PRN Additional IVPB Infusion Lactated Ringer's 1,000 mls @ 15 mls/hr 08/21/24 16:45 08/21/24 16:47 IV 15 mls/hr .Q48H PIA Administration Iopamidol 0 ml 08/21/24 08:45 Contrast Allergy Safety Check IV X1 [facility] Meloxicam 15 mg 08/21/24 10:00 08/21/24 11:17 Meloxicam 15 Mg Tablet PO Not Given DAILY [facility] Metoprolol Succinate 25 mg 08/21/24 10:00 08/21/24 11:18 Metoprolol(Xl)Succ 25 Mg Tablet PO Not Given DAILY [facility] Protocol Ondansetron HCl 4 mg 08/20/24 19:00 Ondansetron 4 Mg/2 Ml Vial IV Q8H PRN PRN NAUSEA/VOMITING Oxycodone HCl 5 mg 08/20/24 19:00 08/21/24 06:37 Oxycodone 5 Mg Tablet PO 5 mg Q4H PRN PRN Administration Pain Score 4-10 Pantoprazole Sodium 40 mg 08/20/24 22:00 08/21/24 11:18 Pantoprazole Sodium 40 Mg Tablet PO Not Given BID [facility] Scopolamine HBr 1 patch 08/21/24 10:00 08/21/24 13:23 Scopolamine 1mg/72hr Patch TD Not Given Q3D [facility] Sodium Chloride 10 - 40 ml 08/20/24 19:01 08/21/24 09:14 0.9% Saline Lock 10 Ml Syringe IV 10 ml UD PRN Administration SALINE FLUSH Spironolactone 25 mg 08/21/24 10:00 08/21/24 11:17 Spironolactone 25 Mg Tablet PO Not Given DAILY [facility] Protocol Sucralfate 1 gm 08/21/24 08:00 08/21/24 09:13 Sucralfate 1 Gm Tablet PO [facility] Zolpidem Tartrate 10 mg 08/20/24 22:00 08/20/24 21:53 Zolpidem Tartrate 5 Mg Tablet PO 10 mg QHS [facility] Administration PFSH Medical History Hypertension Severe pulmonary hypertension History of hypertrophic cardiomyopathy Acute systolic congestive heart failure, NYHA class 3 Leukocytosis Cancer History of steroid therapy Easy bruising Migraine headache History of hiatal hernia History of ulceration History of IBS Abdominal bloating Stomach pain Nausea & vomiting Shortness of breath on exertion Smoker History of echocardiogram Chest pain Pulmonary embolism Endometrial cancer 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 Ovarian cancer GERD (gastroesophageal reflux disease) Insomnia Anxiety Collapsed lung History of blood clots Asthma Breast cancer Pacemaker ICD (implantable cardioverter-defibrillator) in place Hypertrophic cardiomyopathy Home Medications ?Medication ?Instructions ?Recorded ?Last Taken ?Type alprazolam 0.5 mg tablet 0.5 mg PO BID 11/13/2108/20 History zolpidem 10 mg tablet 10 mg PO QHS 11/13/21 History sucralfate 1 gram tablet (Carafate) 1 g PO BIDCM 07/1008/20/24 History metoprolol succinate 25 mg 25 mg PO QDAY 08/08/2412/06 History tablet,extended release 24 hr meloxicam 15 mg tablet 15 mg PO QDAY #30 tabs 08/1008/20/24 Rx pantoprazole 40 mg tablet,delayed 40 mg PO BID 5 08/20/24 History release scopolamine base 1 mg over 3 days 1 patch topical Q3D 08/20/24 08/19/24 History transdermal patch spironolactone 25 mg tablet 25 mg PO DAILY 08/20/24 History Allergy/AdvReac Type Severity Reaction Status Date / Time morphine Allergy Mild Hives Verified 08/20/24 14:17 codeine Allergy Hives Verified 08/20/24 14:17 erythromycin base Allergy PT UNSURE Verified 08/20/24 14:17 OF REACTION Fish Containing Products Allergy Other Verified 08/20/24 14:17 levofloxacin Allergy PT UNSURE Verified 08/20/24 14:17 OF REACTION shellfish derived Allergy Other Verified 08/20/24 14:17 tramadol Allergy Hives Verified 08/20/24 14:17 trimethobenzamide (From Allergy Other Verified 08/20/24 14:17 Tigan) gabapentin (From Neurontin) AdvReac Severe Anaphylaxis Verified 08/20/24 14:17 acetaminophen (From Vicodin) AdvReac Other Verified 08/20/24 14:17 hydrocodone (From Vicodin) AdvReac Other Verified 08/20/24 14:17 metoclopramide (From Reglan) AdvReac Other Verified 08/20/24 14:17 Family History Father Heart disease Idiopathic hypertrophic [...] use type: does not use caffeine: Yes Review of Systems (Anesthesia) ROS Narrative System reviewed and no additional complaints, except as documented. 08/21/24 7685 <Electronically signed by Tony Dumont MD > Date _ Tony Fu Signature: Date CC: ~ Signed [facility] Work Phone: 1(573) 158-985906-10-2025 Discharge summary Author Simona Fernandez [facility] Note Date/Time August 21, 2024 12:2 9am [facility] Medical Records Department [address] [place] [address] Emergency Department Summary 08/20/24 MR#: [id number] Acct: [id number] Name: MICHELLE MITCHELL Rep #:[id number] : 1980 43 From: Simona Jama PCP: Dr. Dex Wilkinson MD Status:A DM IN Location: [address] History of Present Illness Chief Complaint: Abd Pain Informant: patient Narrative Narrative: Patient is a 43-year-old female relatively extensive past medical history including hypertrophic cardiomyopathy, heart failure with reduced ejection fraction, pulmonary hypertension, breast cancer, IBS, ICD, breast and ovarian cancer and prior PE presenting with worsening severe right upper quadrant abdominal pain. Patient notes that she has had dull pain in her upper abdomen for the past 2 months however today around 10 AM it became severe and sharp. She gets waves of sharp pain. It radiates to her shoulder and her back. She has associated nausea despite wearing a scopolamine patch. Denies any vomiting. She had a bowel movement this morning but it was almost white and more firm than normal. She does not report any blood in her stool. She also notes for the past 2 months intermittently she has had dips on exertion and she states shefeels that she is drowning after walking for 100 feet. She denies any specific chest pain but does have discomfort in her right side but attributes that to herpain in her right upper quadrant. She denies any alcohol use. She does have a history of kidney stones and states this feels different. Patient follows with Dr. Myles. She states she called the office today and they recommend she come to the ER given her symptoms. She notes that she did have recent exacerbation of heart failure and EF went down to 34% but she statesit is back up to 50%. She notes that she is on spironolactone for her heart failure. She has an MRCP ordered for next week by Dr. Myles because of CT which showed hepatomegaly but it also showed a double duct sign. Patient had colonoscopy on 07/12/2024 which showed congested mucosa of the terminal ileum which was biopsied but otherwise normal.EGD the same day showed acute gastritis with hemorrhage and erythematous duodenopathy. GI visit reviewed from 07/31/2024?MRCP ordered to evaluate for postcholecystectomy sphincter of Oddi syndrome, choledocholithiasis or ampullarylesion. 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 Ovarian cancer GERD (gastroesophageal reflux disease) Insomnia Anxiety Collapsed lung History of blood clots Asthma Breast cancer Pacemaker ICD (implantable cardioverter-defibrillator) in place Hypertrophic cardiomyopathy Home Medications ?Medication ?Instructions ?Recorded ?Last Taken ?Type alprazolam 0.5 mg tablet 0.5 mg PO BID 11/13/2108/20 History zolpidem 10 mg tablet 10 mg PO QHS 11/13/21 History sucralfate 1 gram tablet (Carafate) 1 g PO BIDCM 07/1008/20/24 History metoprolol succinate 25 mg 25 mg PO QDAY 08/08/2412/06 History tablet,extended release 24 hr meloxicam 15 mg tablet 15 mg PO QDAY #30 tabs 08/1008/20/24 Rx pantoprazole 40 mg tablet,delayed 40 mg PO BID 5 08/20/24 History release scopolamine base 1 mg over 3 days 1 patch topical Q3D 08/20/24 08/19/24 History transdermal patch spironolactone 25 mg tablet 25 mg PO DAILY 08/20/24 History Allergy/AdvReac Type Severity Reaction Status Date / Time morphine Allergy Mild Hives Verified 08/20/24 14:17 codeine Allergy Hives Verified 08/20/24 14:17 erythromycin base Allergy PT UNSURE Verified 08/20/24 14:17 OF REACTION Fish Containing Products Allergy Other Verified 08/20/24 14:17 levofloxacin Allergy PT UNSURE Verified 08/20/24 14:17 OF REACTION shellfish derived Allergy Other Verified 08/20/24 14:17 tramadol Allergy Hives Verified 08/20/24 14:17 trimethobenzamide (From Allergy Other Verified 08/20/24 14:17 Tigan) gabapentin (From Neurontin) AdvReac Severe Anaphylaxis Verified 08/20/24 14:17 acetaminophen (From Vicodin) AdvReac Other Verified 08/20/24 14:17 hydrocodone (From Vicodin) AdvReac Other Verified 08/20/24 14:17 metoclopramide (From Reglan) AdvReac Other Verified 08/20/24 14:17 Family History Father Heart disease Idiopathic hypertrophic [...] does not use caffeine: Yes ROS ROS ED Constitutional Constitutional ED: Denies chills or fever(s) Cardiovascular Cardiovascular: Denies chest pain or palpitations Respiratory/Chest Respiratory/Chest: Reports dyspnea on exertion; Denies cough or dyspnea Gastrointestinal Gastrointestinal: Reports abdominal pain and nausea; Denies constipation, diarrhea or vomiting Genitourinary Genitourinary ED: Reports urinary frequency and other Details: Reports chronic urinary frequency associate with being on a diuretic ; Denies dysuria or hematuria Musculoskeletal Musculoskeletal: Reports back pain; Denies arthralgias or myalgias Integumentary Denies rash Neurologic Neurologic: Denies weakness EXAM Physical Exam Const Vital Signs: 08/20/24 14:16 08/20/24 14:16 08/20/24 16:16 Temperature 97.6 F L Temperature Source Oral Pulse Rate 75 61 54 L Respiratory Rate 16 18 14 Blood Pressure 140/89 H 130/81 H 133/86 H Blood Pressure Mean 106 97 101 Pulse Ox 100 100 99 Oxygen Delivery Method Room Air Positive well nourished and well developed Constitutional Narrative: Uncomfortable appearing but no acute distress General Appearance ED: well developed; Negative for pallor HEENT Reports moist mucous membranes Eyes PERRL General Eye ED: Negative for scleral icterus Neck supple and no JVD Chest Wall inspection of chest normal and palpation of chest normal Resp normal respiratory effort Resp Narrative: Slightly coarse breath sounds at the bases bilaterally. No crackles oppression Cardio regular rate and regular rhythm GI Inspection: Negative for abdominal distention Auscultation: normoactive bowel sounds Palpation: soft and tender epigastric and RUQ; Negative for rebound tenderness present Back/Spine no CVA tenderness Extremity normal to inspection General Extremety ED: Negative for edema General Extremity: Negative for edema Neuro oriented x3 Sensorium / Orientation: alert Motor Exam: Negative for general weakness Psych mental status grossly normal Skin no rashes or lesions noted and no wounds General Skin Exam: Negative for jaundice or pallor MDM MDM MDM Narrative Medical decision making narrative: Patient evaluated for worsening abdominal pain today. Has been having ongoing issues with right upper quadrant abdominal pain and has an outpatient MRCP scheduled. Has had prior cholecystectomy. Differential includes choledocholithiasis, ascending cholangitis, pancreatitis, RADHA, obstructive jaundice. She is not having any vomiting and is continue to have bowel movements a low suspicion for bowel obstruction. She also has a significant cardiac history so cardiac etiology/decompensated heart failure is also on the differential. Workup including CBC, BMP, liver panel, lipase and urinalysis is obtained. Patient is about leukocytosis of 11.9 which is nonspecific but no left shift. Her BMP is largely normal with no RADHA or other significant electrolyte abnormalities. Liver panel does show a slight but worsening transaminitis with an elevation of her alkaline phosphatase (182). Her bilirubin is normal so low suspicion for an obstructive process. Lipase is normal suspicion for associatedpancreatitis. Urinalysis is normal. Urine is negative. Right upper quadrant ultrasound shows trace. Paddock ascites/fluid which is nonspecific andnonspecific pancreatic duct dilation of 6.5 mm. Chest x-ray viewed by myself as well as radiology does show cardiomegaly no other acute process. Patient initially given IV Dilaudid and Zofran for symptom control. She does have improvement with this. She is not given food given her history of heart failure with reduced ejection fraction and clinically she does not appear dehydrated. Her BNP is elevated but downtrending compared to prior hospitalization. Case discussed with TANGELA Pineda on-call. He does agree that patient likely has some type of pathology associated with her biliary duct and needs MRCP and possible ERCP. I did speak with MRI who states that her ICD is MRI compatible but they will have to make arrangements to have it done. Case is discussed withhospitalist for admission, Dr. Larios. Patient is agreeable this plan of care. Patient remains hemodynamically stable in the emergency room. Lab Data Attestation: I reviewed the patient's lab results. Labs: Laboratory Results - last 24 hr 08/20/24 08/20/24 14:43 15:10 WBC 11.9 H RBC 3.97 L Hgb 12.6 Hct 38.1 MCV 96.0 MCH 31.7 MCHC 33.1 RDW Std Deviation 47.5 H RDW Coeff of Damon 13.6 Plt Count 373 MPV 9.9 Immature Gran % (Auto) 0.600 Neut % (Auto) 83.3 H Lymph % (Auto) 10.9 L Glades % (Auto) 4.6 Eos % (Auto) 0.2 Baso % (Auto) 0.4 Absolute Neuts (auto) 9.9 H Absolute Lymphs (auto) 1.29 Nucleated RBC % 0 Sodium 136 Potassium 4.9 Chloride 104 Carbon Dioxide 19.0 L Anion Gap 13 BUN 16 Creatinine 0.97 Estim Creat Clear Calc 63.91 Est GFR (MDRD) Non-Af 74 BUN/Creatinine Ratio 16.5 Glucose 118 H Calcium 9.1 Total Bilirubin 0.67 AST 115 H ALT 103 H Alkaline Phosphatase 182 H NT pro BNP II 3711 H Total Protein 6.6 Albumin 4.0 Globulin 2.7 Albumin/Globulin Ratio 1.5 Lipase 11 L Serum , Qual NEGATIVE Urine Color Straw Urine Clarity Clear Urine pH 6.5 Ur Specific Aldrich 1.010 Urine Protein 15 H Urine Glucose (UA) Normal Urine Ketones Negative Urine Occult Blood 25 H Urine Nitrite Negative Urine Bilirubin Negative Urine Urobilinogen Normal Ur Leukocyte Esterase Negative Urine RBC 0-5 SEEN Urine WBC 0-5 SEEN Ur Squamous Epith Cells 0-5 SEEN Urine Bacteria 0 SEEN Urine Mucus 0 SEEN Radiography Diagnostic Testing: Clinical Impression(s) from Imaging Studies Liver Ultrasound 08/20/24 15:21 IMPRESSION: Gallbladder is surgically removed. Trace perihepatic ascites/fluid, nonspecific. Hepatomegaly. Nonspecific pancreatic duct dilation to 6.5 mm. Reading Location: [facility] Chest X-Ray 08/20/24 16:00 IMPRESSION: CARDIOMEGALY. NO ACUTE FINDINGS. Reading Location: [facility] Discharge Plan Dx/Rx/DC Orders Clinical Impression: Dilated pancreatic duct, Elevated liver enzymes, Abdominal pain, HFrEF (heart failure with reduced ejection fraction) Disposition Disposition: Acute Care Hospital [facility] Discharge Date/Time: 08/20/24 18:38 What to do if you have Problems For any increased pain, shortness of breath, bleeding, nausea or vomiting, chestpain, or any unexpected problems, contact your Primary Care Provider. Call [facility] ([phone]) or report to the closest Emergency Room. Call 911 if necessary. 08/21/24 0029 <Electronically signed by Simona Fernandez DO> Cosigner Signature (if applicable): CC: Dr. Dex Wilkinson MD ~ Signed [facility] Work Phone: 1(681) 921-848606-09-2025 History and physical note Author Lopez Larios [facility] Note Date/Time August 20, 2024 9:41p [facility] Medical Records Department [address] [place] [address] H&P Exam - Hospitalist 08/20/24 1747 MR#: [id number] Acct: [id number] Name: MICHELLE MITCHELL Rep #:[id number] 3 : 1980 43 From: Lopez adame DO PCP: Dr. Dex Wilkinson MD Status:A DM IN Location: [place] [address] HPI - General General Date of Admission: 08/20/24 Date of Service: 08/20/24 Chief Complaint: Worsening RUQ abdominal pain HPI Narrative MICHELLE MITCHELL, is a 43 F who presented to [facility] ED on 08/20/2024 with worsening RUQ abdominal pain. Medical history significant for familial hypertrophic cardiomyopathy s/p ICD placement, DCIS, breast cancer s/p lumpectomy and ovarian cancer s/p total abdominal hysterectomy. She initially presented to the ED on 07/01/[address] at that time showed thickening of the colon concerning for IBD. She had EGD and colonoscopy done on07/[address] Myles. Colonoscopy showed congested mucosa in the terminal ileum but otherwise normal-appearing colon. However, EGD showed acute gastritis with hemorrhage as biopsied as well as erythematous duodenopathy. Biopsy from terminal ileum showed focal active colitis that was a nonspecific finding. Biopsies from EGD were unremarkable. Patient continued to have abdominal pain and saw Dr. Myles in the office on 08/08. Productive greg, lab testing was done that showed evidence of cholestatic hepatitis. CT abdomen/pelvis on further evaluation also showed hepatomegaly initially thought to be secondary toheart failure but further review showed a double duct sign. MRCP was ordered but patient has had worsening pain and came to the ED today for further evaluation. In the ED she was hemodynamically stable on room air. CBC and BMP were benign. However, LFTs are uptrending with AST 115, ALT 103 and alk phos 182. Liver ultrasound showed hepatomegaly with nonspecific pancreatic duct dilation to 6.5 mm. Labs also notable for BNP 3711, though this is improved from previous. Chest x-ray showed cardiomegaly but no volume overload and patient was stable onroom air. Case was discussed with Dr. Myles who recommended admission for further evaluation. Hospitalist was then contacted for admission. I saw the patient at bedside in the ED. She began a dose of IV Dilaudid for her pain withmoderate improvement, but when I saw her she noted that the medication was started to wear off. She otherwise was sitting back in bed and answering questions appropriately for me. Denies any fevers or chills. No other acute concerns at this time. [facility] Medical History Hypertension Severe pulmonary hypertension History of hypertrophic cardiomyopathy Acute systolic congestive heart failure, NYHA class 3 Leukocytosis Cancer History of steroid therapy Easy bruising Migraine headache History of hiatal hernia History of ulceration History of IBS Abdominal bloating Stomach pain Nausea & vomiting Shortness of breath on exertion Smoker History of echocardiogram Chest pain Pulmonary embolism Endometrial cancer Cervical cancer USP current use of 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 Ovarian cancer GERD (gastroesophageal reflux disease) Insomnia Anxiety Collapsed lung History of blood clots Asthma Breast cancer Pacemaker ICD (implantable cardioverter-defibrillator) in place Hypertrophic cardiomyopathy Home Medications ?Medication ?Instructions ?Recorded ?Last Taken ?Type alprazolam 0.5 mg tablet 0.5 mg PO BID 11/13/2108/20 History zolpidem 10 mg tablet 10 mg PO QHS 11/13/21 History sucralfate 1 gram tablet (Carafate) 1 g PO BIDCM 07/1008/20/24 History metoprolol succinate 25 mg 25 mg PO QDAY 08/08/2412/06 History tablet,extended release 24 hr meloxicam 15 mg tablet 15 mg PO QDAY #30 tabs 08/1008/20/24 Rx pantoprazole 40 mg tablet,delayed 40 mg PO BID 5 08/20/24 History release scopolamine base 1 mg over 3 days 1 patch topical Q3D 08/20/24 08/19/24 History transdermal patch spironolactone 25 mg tablet 25 mg PO DAILY 08/20/24 History Allergy/AdvReac Type Severity Reaction Status Date / Time morphine Allergy Mild Hives Verified 08/20/24 14:17 codeine Allergy Hives Verified 08/20/24 14:17 erythromycin base Allergy PT UNSURE Verified 08/20/24 14:17 OF REACTION Fish Containing Products Allergy Other Verified 08/20/24 14:17 levofloxacin Allergy PT UNSURE Verified 08/20/24 14:17 OF REACTION shellfish derived Allergy Other Verified 08/20/24 14:17 tramadol Allergy Hives Verified 08/20/24 14:17 trimethobenzamide (From Allergy Other Verified 08/20/24 14:17 Tigan) gabapentin (From Neurontin) AdvReac Severe Anaphylaxis Verified 08/20/24 14:17 acetaminophen (From Vicodin) AdvReac Other Verified 08/20/24 14:17 hydrocodone (From Vicodin) AdvReac Other Verified 08/20/24 14:17 metoclopramide (From Reglan) AdvReac Other Verified 08/20/24 14:17 Family History Father Heart disease Idiopathic hypertrophic [...] type: does not use caffeine: Yes ROS Constitutional Constitutional: Denies chills, fatigue, fever(s) or weakness Cardiovascular Cardiovascular: Denies chest pain Respiratory/Chest Respiratory/Chest: Denies shortness of breath at rest Gastrointestinal Gastrointestinal: Reports abdominal pain and nausea; Denies constipation, diarrhea, dyspepsia or vomiting Genitourinary Genitourinary: Denies dysuria Musculoskeletal Musculoskeletal: Denies arthralgias or myalgias Neurologic Neurologic: Denies dizziness, focal weakness or headache(s) Vital Signs Vital Signs Vital Signs: 08/20/24 14:16 08/20/24 14:16 08/20/24 16:16 Temperature 97.6 F L Temperature Source Oral Pulse Rate 75 61 54 L Respiratory Rate 16 18 14 Blood Pressure 140/89 H 130/81 H 133/86 H Blood Pressure Mean 106 97 101 Pulse Ox 100 100 99 Oxygen Delivery Method Room Air Weight Weight: 58.876 kg Body Mass Index (BMI) 22.2 Physical Exam Const alert, oriented x3, no apparent distress and average body habitus Constitutional Narrative: Young middle-aged female, mildly fatigued and uncomfortable appearing due to ongoing abdominal pain, otherwise sitting up in bed and answering questions appropriately and in no acute distress. General Appearance: cooperative HEENT normocephalic, head/scalp atraumatic, hearing grossly normal bilaterally, nasal mucous membranes and turbinates normal and moist oral mucous membranes Eyes PERRL, EOMs intact bilaterally and conjunctivae normal Neck full ROM Chest inspection of chest normal Resp normal respiratory effort, normal air movement, no use of accessory muscles and clear to auscultation bilaterally Cardio regular rate, regular rhythm, no murmurs and peripheral pulses 2+ throughout GI GI Narrative: Abdomen soft and nondistended. Only diffuse tenderness to palpation noted on exam. No rebound tenderness or guarding noted. Back/Spine normal ROM Extremity normal to inspection, full ROM and no pedal edema Skin no rashes or lesions noted Psych mental status grossly normal Results Lab / Micro Data 08/20/24 14:43 08/20/24 14:43 Labs: Laboratory Results - last 24 hr 08/20/24 14:43: WBC 11.9 H, RBC 3.97 L, Hgb 12.6, Hct 38.1, MCV 96.0, MCH 31.7, MCHC 33.1, RDW Std Deviation 47.5 H, RDW Coeff of Damon 13.6, Plt Count 373, MPV 9.9, Immature Gran % (Auto) 0.600, Neut % (Auto) 83.3 H, Lymph % (Auto) 10.9 L, Glades % (Auto) 4.6, Eos % (Auto) 0.2, Baso % (Auto) 0.4, Absolute Neuts (auto) 9.9 H, Absolute Lymphs (auto) 1.29, Nucleated RBC % 0, Sodium 136, Potassium 4.9, Chloride 104, Carbon Dioxide 19.0 L, Anion Gap 13, BUN 16, Creatinine 0.97,Estim Creat Clear Calc 63.91, Est GFR (MDRD) Non-Af 74, BUN/Creatinine Ratio 16.5, Glucose 118 H, Calcium 9.1, Total Bilirubin 0.67, AST 115 H, ALT 103 H, Alkaline Phosphatase 182 H, NT pro BNP II 3711 H, Total Protein 6.6, Albumin 4.0,Globulin 2.7, Albumin/Globulin Ratio 1.5, Lipase 11 L, Serum , Qual NEGATIVE 08/20/24 15:10: Urine Color Straw, Urine Clarity Clear, Urine pH 6.5, Ur Specific Aldrich 1.010, Urine Protein 15 H, Urine Glucose (UA) Normal, Urine Ketones Negative, Urine Occult Blood 25 H, Urine Nitrite Negative, Urine Bilirubin Negative, Urine Urobilinogen Normal, Ur Leukocyte Esterase Negative, Urine RBC 0-5 SEEN, Urine WBC 0-5 SEEN, Ur Squamous Epith Cells 0-5 SEEN, Urine Bacteria 0 SEEN, Urine Mucus 0 SEEN Imaging Radiology Impression Liver Ultrasound 08/20/24 15:21 IMPRESSION: Gallbladder is surgically removed. Trace perihepatic ascites/fluid, nonspecific. Hepatomegaly. Nonspecific pancreatic duct dilation to 6.5 mm. Reading Location: [facility] Chest X-Ray 08/20/24 16:00 IMPRESSION: CARDIOMEGALY. NO ACUTE FINDINGS. Reading Location: [id number] Assessment & Plan Assessment/Plan (1) Abdominal pain: QUALIFIERS: Abdominal location: unspecified location Qualified Code(s): R10.9 - Unspecified abdominal pain (2) Elevated liver enzymes: (3) Dilated pancreatic duct: PLAN: Plan Patient is a 43-year-old female who presented to [facility] ED on 08/20/2024 with worsening RUQ abdominal pain. 1. Worsening RUQ abdominal pain with elevated LFTs ? Admit under inpatient status to PCU. GI consulted. Presented with worsening abdominal pain and uptrending LFTs. Prior CT abdomen pelvis showed hepatomegalywith double duct sign. Liver ultrasound on this admission again showed hepatomegaly with pancreatic duct dilation. Per GI, will plan for MRCP and possible ERCP tomorrow. N.p.o. at midnight. Trend LFTs. Appreciate further GIrecs. 2. Chronic HFrEF in setting of familial hypertrophic cardiomyopathy, hypertension ? Follows with [place] [facility]. Most recent echo on 07/21 showed EF 35%, mildconcentric LV hypertrophy, global LV hypokinesis, stage II diastolic dysfunction. BNP 3711 on this admission; notably this is improved from previous. Chest x-ray with no evidence of volume overload and patient stable onroom air at rest so not consistent with heart failure exacerbation. Continue home spironolactone and Toprol. 3. Anxiety/insomnia ? Stable. Continue home alprazolam and zolpidem at night. 4. GERD ? Continue home PPI twice daily. Will hold home sucralfate for now. DVT prophylaxis: Lovenox CODE STATUS: Full code, verified Expected disposition: Home, TBD Total clinical time spent by myself addressing the patient's medical issues, reviewing all the data, and collaborating with patient's care team: 75 minutes. Charges/Coding Visit Charges Inpatient E&M: 70715 Init Hosp L3 08/20/24 214 <Electronically signed by Lopez Larios DO> Cosigner Signature (if applicable): CC: Dr. Lopez Larios DO; Dr. Dex Wilkinson MD~ Signed [facility] Work Phone: 1(577) 786-588306-09-2025 Radiology Diagnostic study [facility]06-09-2025 Radiology Diagnostic study [facility]06-04-2025 History of Present illness Narrative* Radu Kay MD - 08/15/2024 11:00 AM EDT [facility] Note CHIEF COMPLAINT: No chief complaint on file. Primary Care Physician: No primary care provider on file. Ladle Repairman- Dario ([facility]) GI- Friend HISTORY OF PRESENT ILLNESS: Michelle Mitchell is a 43 y.o. female with hypertrophic cardiomyopathy who presents as a new patient Briefly she was apparently diagnosed with hypertrophic cardiomyopathy after an episode of syncope underwent ICD placement in 2006 with lead revision in 2008, and then explant of the entire device with reimplantation in 2016, she was followed with a local track laborer Dr Bishop (was following at [facility] she moved to [place] in 2021), notably she was admitted with chest pressure to [facility] in 2014 and 2016 felt to [...] showing possible vegetation and was transferred to [facility], her blood cultures were negative and on extensive review of her imaging she had a echodensity on her right atrial lead felt jerri due to the old device that was [...] has. 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 No edema but does have cough and bloating She has [id number] smoking history no alcohol no illicits. She takes Trintellis for anger issues,was on chantix in the past without problems but it was taken off the market. ICD issues : no shocks, 5 years of battery, [employer] single lead Monitors/restricts salt/fluid : not much [...] F) Resp 16 Height 1.626 m (5' 4") Weight (lb) 120 BMI 20.6 kg/m2 BSA [...] tenderness no more than trace edema LABS: RESUFAST(CHOL:1,HDL:1,LDLF:1,TRI): No results found for: "CHOL", "HDL", "LDLF", "TRIG" GETLABS(6M,2): No visits with results within 6 Month(s) from this visit. Latest known visit with results is: [facility] Encounter on 03/22/2020 Component Date Value SARS-CoV-2 Result 03/22/2020 NOT DETECTED Date of Symptom Onset? (* 03/22/2020 20,210,106 LABBRIEF(HGB:3) No results found for: "HGB" CMP:No results for input(s): "NA", "K", "CL", "CO2", "ANIONGAP", "BUN", "CREATININE", "EGFR", "MG" in the last 06003 hours.No results for input(s): "ALBUMIN", "ALKPHOS", "ALT", "AST", "BILITOT", "LIPASE" in the last 26934 hours. No lab exists for component: "CA" CBC:No results for input(s): "WBC", "HGB", "HCT", "PLT", "MCV" in the last 26658 hours. HEME/ENDO:No results for input(s): "FERRITIN", "IRONSAT", "TSH", "HGBA1C" in the last 00746 hours. CARDIAC: No results for input(s): "LDH", "CKMB", "TROPHS", "BNP" in the last 02007 hours. No lab exists for component: "CK", "CKMBP"No results for input(s): "CHOL", "LDLF", "HDL", "TRIG" inthe last 33291 hours. No results found for: "BNP" DIAGNOSTIC STUDIES REVIEWED: EKG: sinus rhythm with [...] prior echocardiographic exam performed on 04/25/2021 ([facility]). Mobile echodensity reported today as above. 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 * Anabell Noonan RN - 08/15/2024 11:00 AM EDT 43 year old female here for cardiovascular evaluation of heart failure. PM/SHx: HFmrEF, Breast CA, endometrial CA, DVT/PE, HCM, ICD Social Hx: Current Smoker (0.5 PPD), ETOH, illicits Family Hx: Father had heart transplant Interval Hx: Currently denies chest pain. Patient has complaints of chest pressure. She rates this a 7/10. It isworse with activity. Patient has complaints of palpitations, dyspnea on exertion. Patient denies shortness of breath, orthopnea, positive PND. No edema noted in BLE. Patient does feel her abdomen is distended. Patient denies dizziness or recent falls. Patient has complaints of headaches. Hospitalizations: July 2024 at [facility] for ADHF. [facility] Work Phone: [phone]) 696-791506-04-2025 Instructions* Patient Instructions* Radu Kay MD - 08/15/2024 11:00 AM EDT To reach Dr. Kay's office please call [phone] ([place]). . Call [phone] to schedule an appointment. You may also contact the HF RNs at [email or web address] Thank you for coming to your appointment today. If you have any questions or need cardiac medication refills, please call the Heart Failure Office at [phone] option 6. Start spironolactone 25mg and jardiance 10mg (if affordable) Get labwork in the next 2-6 weeks (we can order if not ordered by your other doctors) Talk to Dr Wilkinson about Chantix in the future Try to get genetic testing information from your family Return in 3 months documented [facility] Work Phone: 1(857) 216-725405-31-2025 Radiology Diagnostic study [facility]05-30-2025 Telephone encounter Note* Telephone Encounter - Suman Cadena RN - 08/10/2024 10:42 PM EDT S: Patient called the [facility] with complaints of back and abdominal pain. B: Symptoms began 15 minutes prior to call. A: Patient states she had a small bowel movement, and afterwards, begin having severe 8/10 back pain, radiating to abdomen, with severe nausea. Patient states she has been taking Motrin for relief ofpain. In audible distress throughout call. 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 Denies recent injury, fever, dysuria, urinary retention, incontinence, weakness, numbness, or hematuria. R: Patient instructed to proceed to evaluation of severe, sudden onset pain. Patient verbalizes understanding, and states she will proceed to [place] [facility], and that her SO will drive her. Reason for Disposition Patient sounds very sick or weak to the triager Protocols used: Back Svyc-FUDBL-JX [facility] [id number] Miscellaneous Notes* Telephone Encounter - Suman Cadena RN - 08/10/2024 10:42 PM EDT S: Patient called the [facility] with complaints of back and abdominal pain. B: Symptoms began 15 minutes prior to call. A: Patient states she had a small bowel movement, and afterwards, begin having severe 8/10 back pain, radiating to abdomen, with severe nausea. Patient states she has been taking Motrin for relief ofpain. In audible distress throughout call. 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 Denies recent injury, fever, dysuria, urinary retention, incontinence, weakness, numbness, or hematuria. R: Patient instructed to proceed to evaluation of severe, sudden onset pain. Patient verbalizes understanding, and states she will proceed to [place] [facility], and that her SO will drive her. Reason for Disposition Patient sounds very sick or weak to the triager Protocols used: Back Jtwh-FDTGH-MT documented in this encounterSChillicothe VA Medical [id number] History of Present illness Narrative* Quynh Chang [facility] - 07/30/2024 7:23 AM EDT TRANSITION CARE MANAGEMENT (TCM) HEART FAILURE PHARMACY [...] oz) Patient was sent a message via [employer] including the link to the [facility] Heart Failure education video: No sent 07/27/24 Patient unable to be reached after unsuccessful outreach attempt(s). No further attempts to contactpatient will be made. SUMMARY: -Pt discharged from [facility] on 07/27/24. -Medication review not done History of Present Illness: The following content has been copied and pasted from patient's discharge summary. If discharge summary unavailable, After Visit Summary or last pertinent inpatient notes are copied and pasted. Reason for Hospitalization: Patient transferred to [facility] from [place] for concerns for ADHF and hx of [...] Fonseca. Patient discharged in stable condition with instructionsto follow up with her local PCP and track laborer in [place]. " Medication Reconciliation: Legend: Stopped, New, Changed, Added to list Medication List Medication Directions Comments Action/Plan albuterol HFA (VENTOLIN HFA) 90 mcg/actuation inhaler Inhale 2 Puffs as instructed every 4 hours asneeded for wheezing/shortness of breath. 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 psyllium (METAMUCIL) 3.4 gram packet Take 1 packet by mouth two times a day. sucralfate (CARAFATE) 1 gram tablet Take 1 tablet by mouth two times a day before meals. vortioxetine (TRINTELLIX) 10 mg tablet Take 10 mg by mouth once daily. zolpidem (AMBIEN) 10 mg Tab Take 10 mg by mouth daily at bedtime. [facility] [place] [address] [address] [facility] - [phone] [place] [address] [facility] [address] [place] [address] Estimated Creatinine Clearance: 70.3 mL/min (based on [...] 30, 2024 7:24 AM documented in this encounterK[facility]05-19-2025 NoteHNO ID: [id number] Author: QUYNH CHAGN RPh Service: ? Author Type: Pharmacist Type: [...] oz) Patient was sent a message via [employer] including the link to the [facility] Heart Failure education video: No sent 07/27/24 Patient unable to be reached after unsuccessful outreach attempt(s). No further attempts to contact patient will be made. SUMMARY: -Pt discharged from [facility] on 07/27/24. -Medication review not done History of Present Illness: The following content has been copied and pasted from patient's discharge summary. If discharge summary unavailable, After Visit Summary or last pertinent inpatient notes are copied and pasted. Reason for Hospitalization: Patient transferred to [facility] from [place] for concerns for ADHF and hx of [...] follow up with her local PCP and track laborer in [place]. 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 Preferred pharmacy: [facility] [address] [place], [place] [id number] - [address] [facility] - [phone] [place], [place] [id number] [facility] [address] [place], [place] [id number] Estimated Creatinine Clearance: 70.3 mL/min (based on [...] Quynh Chang RPh July 30, 2024 7:24 [facility]05-19-2025 NotePatient Outreach (PHRXRF) MICHELLE MITCHELL ([id number]) 1980 F Date Time Provider Department 07/30/24 CHANGQUYNH MORA CHRIS During your visit today, we recorded the following information about you: Quynh Chang [facility] 07/30/2024 4:25 PM Signed TRANSITION CARE MANAGEMENT [...] oz) Patient was sent a message via [employer] including the link to the [facility] Heart Failure education video: No sent 07/27/24 Patient unable to be reached after unsuccessful outreach attempt(s). No further attempts to contact patient will be made. SUMMARY: -Pt discharged from [facility] on 07/27/24. -Medication review not done History of Present Illness: The following content has been copied and pasted from patient's discharge summary. If discharge summary unavailable, After Visit Summary or last pertinent inpatient notes are copied and pasted. Reason for Hospitalization: Patient transferred to [facility] from [place] for concerns for ADHF and hx of [...] follow up with her local PCP and track laborer in [place]. 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 [facility]erred pharmacy: [facility] [address] [place] [address] [address] [facility] [phone] [place], [place] [phone] [facility] [address] [place], [place] [address] Estimated Creatinine Clearance: 70.3 mL/min (based on [...] Chang RPh July 30, 2024 7:24 AM Allergies As [...] redness and itching a (more content not included)...[facility]05-16-2025 NoteHNO ID: [id number] Author: IRLANDA MOORE RPh Service: Pharmacy Author [...] RPh July 27, 2024 10:38 AM Pager: [phone] Medication List START taking these medications metoprolol [...] Your Medications These medications were sent to [facility] [address] [place], [place] [id number] - [address] [place] [address] - [address] [place] [address] [place], [place] [id number] metoprolol succinate ER 25 mg 24 hr tabletGenesis Hospital05-15-2025 NoteHNO ID: [id number] Author: TEJAL RODRÍGUEZ PA-C Service: Cardiovascular Medicine Author Type: Physician Translational Specialist Type: Progress Notes Filed: 07/26/2024 15:35 Note Text: [facility] CARDIOVASCULAR MEDICINE PROGRESS NOTE Michelle Mitchell [id number] PRIMARY SERVICE: Imaging, Hvi TIME OF SERVICE: [...] chest pain first reported after PE in 2017. She states the pain is different compared [...] new from MICKI o (more content not included)...[facility]05-14-2025 NoteHNO ID: [id number] Author: SHEILA SPICER RN Service: Care Management Author Type: Registered Nurse Type: Care Mgt Initial Assessment Filed: 07/25/2024 14:56 Note Text: CARE MANAGEMENT: ASSESSMENT AND DISCHARGE PLAN SERVICE DATE: July 25, 2024 SERVICE TIME: 2:50 PM PCP: Dex Wilkinson MD Primary Contact: Extended Emergency Contact Information Primary Emergency Contact: Babar Mitchell Address: [address] [place] [address] [place] Relation: Spouse Admission Status: Inpatient Insurance Provider: Work Market PPO Discharge Planning requested by: Per Department Practice Potential Transition Plans Home Advance Directives Current Advance Directive: None Banquet Director Attempted to Assist with AD Completion: Yes [...] Patient Goal(s): Be able to go home [place] of Choice Explained: [place] of Choice Given: No Reason Not Given: [...] Plan: Patient states that this visit came "out of the blue" and they are managing it ok, except they have gone negative in their account to get her up to see her today. Inquiring about parking passes or gas cards for to be able to see her prior to getting paid next Tuesday. States she does feel a little anxious due to being "just doors down from where my dad " and that he had received a transplant and in the ICU a few months later. Is trying to keep a positive outlook by stating that "God has brought me here to help me grieve and help me heal because I have not done that yet". Patient did state that she is in the best place she could be in and in the "best hands". Patient's will provide transportation on discharge to home. CM will follow for pending needs until discharge. Patient will require further workup to determine if she will need IV antibiotics when she discharges or any other needs. SIGNATURE: Sheila Spicer RN PATIENT NAME: Michelle Mitchell DATE: July 25, 2024 TIME: 2:50 [facility]05-14-2025 Nurse Note* Dominguez Obregon RN - 07/25/2024 2:00 PM EDT ..AMBULATORY PATIENT EDUCATION TOPIC: SURVIVAL SKILLS: MICKI [...] FAMILY RESPONSE: Verbalizes understanding of: POST-OPERATIVE INSTRUCTIONS-Correct actionsto take to reduce postoperative complications PRE-PROCEDURE INSTRUCTIONS-Correct action to take to follow pre-procedure instructions FOLLOW-UP PLAN: Complete - No need for follow-up SUPPLEMENTAL MATERIAL: None REFERRAL (RECOMMENDATION): None Electronically Signed By Dominguez Obregon RN In Department: CARDIOLOGY [facility]05-14-2025 Nurse Note* Dominguez Obregon RN - 07/25/2024 2:00 PM EDT ..AMBULATORY PATIENT EDUCATION TOPIC: SURVIVAL SKILLS: MICKI [...] FAMILY RESPONSE: Verbalizes understanding of: POST-OPERATIVE INSTRUCTIONS-Correct actionsto take to reduce postoperative complications PRE-PROCEDURE INSTRUCTIONS-Correct action to take to follow pre-procedure instructions FOLLOW-UP PLAN: Complete - No need for follow-up SUPPLEMENTAL MATERIAL: None REFERRAL (RECOMMENDATION): None Electronically Signed By Dominguez Obregon RN In Department: CARDIOLOGY documented in this encounterKettering Health Behavioral Medical Center05-14-2025 NoteHNO ID: [id number] Author: MAHNAZ RUFF, ? Service: Pharmacy Author Type: Turnaround Engineer Type: Plan of Care Filed: 07/25/2024 10:00 [...] questions, please reach out to your medication access clinician. Thank you (Prices may vary at different pharmacy locations, this is the cost at [facility]05-14-2025 NoteHNO ID: [id number] Author: MAHNAZ RUFF, ? Service: Pharmacy Author Type: Turnaround Engineer Type: Plan of Care Filed: 07/25/2024 09:57 Note Text: Insurance investigation completed Patient has active prescription insurance: Yes - Patient's insurance is in-network with [facility] Insurance loaded into [employer]: Yes Test claim was completed to verify insurance is active: Successful Any questions, please reach out to your medication access clinician.[facility]05-13-2025 Discharge summary [facility] Medical Records Department [address] [place] [address] Discharge Summary 07/24/24 0839 MR#: [id number] Acct: [id number] Name: MICHELLE MITCHELL Rep #:[id number] 8 : 1980 43 From: Willian Ovalles DO PCP: Dr. Dex Wilkinson MD Status:A DM IN Location: [place] [address] Providers Date of Admission: 07/21/24 Primary Care Physician: Dr. Dex Wilkinson MD Consultations 07/21/24 00:48 Consult: Cardiology Routine Consulting Provider: [facility] Reason for Consult: AE CHF, Elevated Troponin and Near Syncope with Hypertrophic CM EMERGENT Consult: No MD Notified: Yes Date Notified: 07/21/24 Time Notified: 06:52 Method of Notification: Text Method of Consult:: In-Person 07/23/24 08:42 Consult: Gastroenterology Routine Consulting Provider: [facility] Reason for Consult: gastritis. clearance for [...] on following up with Dr. Aguilar at [facility], CTS at [facility] that specialized in cardiac transplantation. She [...] with the patient and Drs. Bishop and Greg. Present during phone call with Dr. Bishop and her sister. Patient has been accepted to [facility], awaiting on bed availablily. Medications at [...] heart transplant. So that is the reason [facility] was selected as a facility for [...] Physician: Sergio Umaña Performed By: Wei Kessler RVAlmaz D/C Instructions DC O2, CPAP, BIPAP Needs [...] Provider: Willian Ovalles Primary Care Provider: Dex Wilkinson Consulting Providers: Filemon Subramanian; Chetan Grant; Saman Clay; Augustin Potts; Don Victoria; Jose Francisco Santamaria; Cleo Huerta; Mercy Bishop; Sarita Flores; Vincent Hdz; Cliff Car; Bogdan Bates OPHTHALMIC TECHNICIAN APPRENTICE; Xochitl Bourne; Grover Guerra; Sergio Umaña Discharge Orders/Prescriptions Prescriptions: [...] PO Q12H Referrals / Follow Up: Dex Wilkinson MD [Primary Care Provider] - Disposition Disposition (needs filled in before D/C Order can be placed): Acute Care Hospital Charges/Coding Visit Charges Inpatient E&M: 13432 Disch Hosp >30min 07/24/24 0843 Cosigner Signature (if applicable): CC: Dr. Willian Ovalles DO; Dr. Dex Wilkinson MD~ Signed [facility]05-13-2025 NoteWooBlanchard Valley Health [facility]05-12-2025 Progress note Author Willian Ovalles [facility] Note Date/Time July 23, 2024 12:31 pm [facility] Medical Records Department [address] [place] [address] Progress Note - Hospitalist 07/23/24 0749 MR#: [id number] Acct: [id number] Name: MICHELLE MITCHELL Rep #:[id number] 2 : 1980 43 From: Willian Ovalles DO PCP: Dr. Dex Wilkinson MD Status:A DM IN Location: [place] [address]- 1 Reason for Visit Reason for Visit: [...] 93.3 H, Lymph % (Auto) 2.5 L, Glades % (Auto) 2.5, Eos % (Auto) 0.0, [...] GI clearance prior to undergoing a MICKI. DW Dr. Friend, who will be consulted. Ok for anticoagulation. (4) Pulmonary hypertension: PLAN: suspect group 2. PE ruled on CTA unlikely group 1 component, may benefit from referral to pulmonary hypertension specialist. Pt states that she plans on following up with Dr. Aguilar at [facility], CTS at [facility] that specialized in cardiac transplantation. She [...] with the patient and Drs. Bishop and Greg. Present during phone call with Dr. Bishop and her sister. Patient has been accepted to [facility], awaiting on bed availablily. Charges/Coding Visit Charges Inpatient E&M: 47506 Subs Hosp L3 07/23/24 1231 <Electronically signed by Willian Ovalles DO> Cosigner Signature (if applicable): CC: ~ Signed [facility] Work Phone: 1(335) 451-315505-12-2025 Progress note Author Mercy Bishop [facility] Note Date/Time July 23, 2024 11:05 am [facility] Medical Records Department [address] [place] [address] Progress Note - Cardiology 07/23/24 0826 MR#: [id number] Acct: [id number] Name: MICHELLE MITCHELL Rep #:[id number] 2 : 1980 43 From: Mercy Bishop MD PCP: Dr. Dex Wilkinson MD Status:A DM IN Location: [facility] [id number]- [id number] Subjective Subjective Patient continues to complain [...] 93.3 H, Lymph % (Auto) 2.5 L, Glades % (Auto) 2.5, Eos % (Auto) 0.0, [...] 93.3 H, Lymph % (Auto) 2.5 L, Glades % (Auto) 2.5, Eos % (Auto) 0.0, [...] her situation with Dr. Zambrano at the [facility] and he has agreed to take the [...] infraclavicular area. This is monitored with the [place] device clinic. (3) Hemorrhagic gastritis: QUALIFIERS: Chronicity: [...] 5. Will arrange for transfer to the [facility] with her heart failure service. Charges/Coding Visit Charges Inpatient E&M: 83050 Subs Hosp L3 07/23/24 1105 <Electronically signed by Mercy Bishop MD> Cosigner Signature (if applicable): CC: ~ Signed [facility] Work Phone: 1(111) 353-991905-12-2025 Progress note [facility] Medical Records Department [address] [place] [address] Progress Note - Hospitalist 07/23/24 0749 MR#: [id number] Acct: [id number] Name: MICHELLE MITCHELL Rep #:[id number] 2 : 1980 43 From: Willian Ovalles DO PCP: Dr. Dex Wilkinson MD Status:A DM IN Location: [place] [address] Reason for Visit Reason for Visit: Diagnoses [...] 93.3 H, Lymph % (Auto) 2.5 L, Glades % (Auto) 2.5, Eos % (Auto) 0.0, [...] on following up with Dr. Aguilar at [facility], CTS at [facility] that specialized in cardiac transplantation. She [...] with the patient and Drs. Bishop and Greg. Present during phone call with Dr. Bishop and her sister. Patient has been accepted to [facility], awaiting on bed availablily. Charges/Coding Visit Charges Inpatient E&M: 30720 [facility] Hosp L3 07/23/24 1231 Cosigner Signature (if applicable): CC: ~ Signed [facility]05-12-2025 Progress note [facility] Medical Records Department [address] [place] [address] Progress Note - Cardiology 07/23/24 0826 MR#: [id number] Acct: [id number] Name: MICHELLE MITCHELL Rep #:[id number] 2 : 1980 43 From: Mercy Bishop MD PCP: Dr. Dex Wilkinson MD Status:A DM IN Location: [place] [address] Subjective Subjective Patient continues to complain of [...] 23:59 Intake Total 900 / 900 1999 / 1999 Balance 900 / 900 1999 / 1999 Lab / Micro Data Attestation: I [...] 93.3 H, Lymph % (Auto) 2.5 L, Glades % (Auto) 2.5, Eos % (Auto) 0.0, [...] 93.3 H, Lymph % (Auto) 2.5 L, Glades % (Auto) 2.5, Eos % (Auto) 0.0, [...] her situation with Dr. Zambrano at the [facility] and he has agreed to take the [...] right infraclavicular area. This is monitored with [facility] device clinic. (3) Hemorrhagic gastritis: QUALIFIERS: Chronicity: [...] 5. Will arrange for transfer to the [facility] with her heart failure service. Charges/Coding Visit Charges Inpatient E&M: 32401 Subs Hosp L3 07/23/24 1105 Cosigner Signature (if applicable): CC: ~ Signed [facility]05-11-2025 Progress note Author Willian Ovalles [facility] Note Date/Time July 22, 2024 1:45p m [facility] Medical Records Department [address] [facility] [place] [address] Progress Note - Hospitalist 07/22/24 0852 MR#: [id number] Acct: [id number] Name: MICHELLE MITCEHLL Rep #:[id number] 8 : 1980 43 From: Willian Ovalles DO PCP: Dr. Dex Wilkinson MD Status:A DM IN Location: [facility] [id number]- 1 Reason for Visit Reason for Visit: [...] 87.1 H, Lymph % (Auto) 6.4 L, Glades % (Auto) 4.8, Eos % (Auto) 0.2, [...] Ordering Physician: Sergio Umaña Referring Physician: Dex Wilkinson Performed By: Maru Kothari RDCS Physical Exam [...] on following up with Dr. Aguilar at [facility], CTS at [facility] that specialized in cardiac transplantation. She may be refferred by Dr. Aguilar since she will be following up there. PLAN: Plan VTE prophylaxis: LMWH. Charges/Coding Visit Charges Inpatient E&M: 29317 Subs Hosp L2 07/22/24 1345 <Electronically signed by Willian Ovalles DO> Cosigner Signature (if applicable): CC: ~ Signed [facility] Work Phone: 1(940) 788-576205-11-2025 Progress note Author Saman Clay [facility] Note Date/Time July 22, 2024 12:00 pm [facility] Medical Records Department [address] [place] [address] Progress Note - Cardiology 07/22/24 1157 MR#: [id number] Acct: [id number] Name: MICHELLE MITCHELL Angelo Rep #:[id number] 6 : 1980 43 From: Saman Clay MD PCP: Dr. Dex Wilkinson MD Status:A DM IN Location: [place] [address] Subjective Subjective Continues to complain of abdominal [...] 87.1 H, Lymph % (Auto) 6.4 L, Glades % (Auto) 4.8, Eos % (Auto) 0.2, [...] 87.1 H, Lymph % (Auto) 6.4 L, Glades % (Auto) 4.8, Eos % (Auto) 0.2, [...] Ordering Physician: Sergio Umaña Referring Physician: Dex Wilkinson Performed By: Maru Kothari AFY Physical Exam Narrative Comfortable. No apparent distress. [...] Cosigner Signature (if applicable): CC: ~ Signed [facility] Work Phone: 1([phone]) 861-909905-11-2025 Progress note [facility] Medical Records Department [address] [place] [address] Progress Note - Hospitalist 07/22/24 0852 MR#: [id number] Acct: [id number] Name: MICHELLE MITCHELL Rep #:[id number] : 1980 43 From: Willian Ovalles DO PCP: Dr. Dex Wilkinson MD Status:A DM IN Location: [place] [address] Reason for Visit Reason for Visit: Diagnoses [...] 87.1 H, Lymph % (Auto) 6.4 L, Glades % (Auto) 4.8, Eos % (Auto) 0.2, [...] Ordering Physician: Sergio Umaña Referring Physician: Dex Wilkinson Performed By: Maru Kothari RDCS Physical Exam [...] on following up with Dr. Aguilar at [facility], CTS at [facility] that specialized in cardiac transplantation. She may be refferred by Dr. Aguilar since she will be following up there. PLAN: Plan VTE prophylaxis: LMWH. Charges/Coding Visit Charges Inpatient E&M: 52032 Subs Hosp L2 07/22/24 1345 Cosigner Signature (if applicable): CC: ~ Signed [facility]05-11-2025 Progress note [facility] Medical Records Department [address] [place] [address] Progress Note - Cardiology 07/22/24 1157 MR#: [id number] Acct: [id number] Name: MICHELLE MITCHELL Rep #:[id number] : 1980 43 From: Saman Clay MD PCP: Dr. Dex Wilkinson MD Status:A DM IN Location: [place] [address] Subjective Subjective Continues to complain of abdominal [...] 87.1 H, Lymph % (Auto) 6.4 L, Glades % (Auto) 4.8, Eos % (Auto) 0.2, [...] 87.1 H, Lymph % (Auto) 6.4 L, Glades % (Auto) 4.8, Eos % (Auto) 0.2, [...] Ordering Physician: Sergio Umaña Referring Physician: Dex Wilkinson Performed By: Maru Kothari RDCS Physical Exam [...] Cosigner Signature (if applicable): CC: ~ Signed [facility]05-10-2025 Consult note Author Saman Clay [facility] Note Date/Time July 21, 2024 1:26p m [facility] Medical Records Department [address] [place] [address] Consultation - Cardiology 07/21/24 1316 MR#: [id number] Acct: [id number] Name: MICHELLE MITCHELL Rep #:[id number] : 1980 43 From: Saman Clay MD PCP: Dr. Dex Wilkinson MD Status:A DM IN Location: [place] [address]- 1 Assessment & Plan Assessment/Plan (1) Acute systolic [...] with contrast reflux into the hepatic veins. [facility] Medical History (Updated 07/21/24 @ 13:[address] 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 Ovarian cancer GERD [...] albuterol sulfate 90 mcg/actuation 1 inh inhalation MN N 07/26/23 Unknown History aerosol inhaler dicyclomine [...] 94.7 H, Lymph % (Auto) 2.7 L, Glades % (Auto) 1.5, Eos % (Auto) 0.0, [...] Albumin 4.3, Globulin 2.5, Albumin/Globulin Ratio 1.7, [id number] 07/20/24 20:05: Urine Color Straw, Urine Clarity Clear, Urine pH 6.0, Ur Specific Aldrich 1.020, Urine Protein 100 H, Urine Glucose [...] 92.6 H, Lymph % (Auto) 3.5 L, Glades % (Auto) 2.6, Eos % (Auto) 0.1, [...] 94.7 H, Lymph % (Auto) 2.7 L, Glades % (Auto) 1.5, Eos % (Auto) 0.0, [...] Clarity Clear, Urine pH 6.0, Ur Specific Aldrich 1.020, Urine Protein 100 H, Urine Glucose [...] 92.6 H, Lymph % (Auto) 3.5 L, Glades % (Auto) 2.6, Eos % (Auto) 0.1, [...] 20:06 IMPRESSION: No Acute Findings. Reading Location: [facility] Abdomen/Pelvis CT 07/20/24 21:15 IMPRESSION: 1. No acute findings in the abdomen and pelvis. 2. Mild hepatomegaly with heterogenous hepatic attenuation. 3. Small abdominopelvic ascites. Reading Location: [facility] Chest CTA 07/20/24 21:15 IMPRESSION: 1. No evidence of pulmonary embolism. 2. Diffuse interlobular septal thickening, scattered ground-glass opacities and bilateral pleural effusions, concerning for pulmonary edema. 3. Cardiomegaly, with trace pericardial effusion. 4. Contrast reflux into the hepatic veins suggestive of right heart dysfunction. Reading Location: [facility] 07/21/24 1326 <Electronically signed by Saman Clay MD> Cosigner Signature (if applicable): CC: Dr. Dex Wilkinson MD~ Signed [facility] Work Phone: [phone]) 329-480505-10-2025 Progress note Author Willian Ovalles [facility] Note Date/Time July 21, 2024 11:37 am [facility] Medical Records Department [address] [place] [address] Progress Note - Hospitalist 07/21/24 0753 MR#: [id number] Acct: [id number] Name: MICHELLE MITCHELL Rep #:[id number] : 1980 43 From: Willian Ovalles DO PCP: Dr. Dex Wilkinson MD Status:A DM IN Location: [place] [address] Reason for Visit Reason for Visit: Diagnoses [...] 94.7 H, Lymph % (Auto) 2.7 L, Glades % (Auto) 1.5, Eos % (Auto) 0.0, [...] Albumin 4.3, Globulin 2.5, Albumin/Globulin Ratio 1.7, [id number] 07/20/24 20:05: Urine Color Straw, Urine Clarity Clear, Urine pH 6.0, Ur Specific Aldrich 1.020, Urine Protein 100 H, Urine Glucose [...] 92.6 H, Lymph % (Auto) 3.5 L, Glades % (Auto) 2.6, Eos % (Auto) 0.1, [...] 20:06 IMPRESSION: No Acute Findings. Reading Location: [facility] Abdomen/Pelvis CT 07/20/24 21:15 IMPRESSION: 1. No acute findings in the abdomen and pelvis. 2. Mild hepatomegaly with heterogenous hepatic attenuation. 3. Small abdominopelvic ascites. Reading Location: [facility] Chest CTA 07/20/24 21:15 IMPRESSION: 1. No evidence of pulmonary embolism. 2. Diffuse interlobular septal thickening, scattered ground-glass opacities and bilateral pleural effusions, concerning for pulmonary edema. 3. Cardiomegaly, with trace pericardial effusion. 4. Contrast reflux into the hepatic veins suggestive of right heart dysfunction. Reading Location: [facility] Physical Exam Const alert and no apparent [...] prophylaxis: LMWH. Charges/Coding Visit Charges Inpatient E&M: 41738 Subs Hosp L2 07/21/24 1137 <Electronically signed by Willian Ovalles DO> Cosigner Signature (if applicable): CC: ~ Signed [facility] Work Phone: 1(840) 482-832105-10-2025 Consult note [facility] Medical Records Department [address] [place] [address] Consultation - Cardiology 07/21/24 1316 MR#: [id number] Acct: [id number] Name: ALBAMICHELLE AWAD Angelo Rep #:[id number] 6 : 1980 43 From: Saman Clay MD PCP: Dr. Dex Wilkinson MD Status:A DM [facility] Assessment & Plan Assessment/Plan (1) Acute systolic [...] with contrast reflux into the hepatic veins. [facility] Medical History (Updated 07/21/24 @ 13:[address] 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 Ovarian cancer GERD [...] albuterol sulfate 90 mcg/actuation 1 inh inhalation MN N 07/26/23 Unknown History aerosol inhaler dicyclomine [...] 94.7 H, Lymph % (Auto) 2.7 L, Glades % (Auto) 1.5, Eos % (Auto) 0.0, [...] Albumin 4.3, Globulin 2.5, Albumin/Globulin Ratio 1.7, [id number] 07/20/24 20:05: Urine Color Straw, Urine Clarity Clear, Urine pH 6.0, Ur Specific Aldrich 1.020, Urine Protein 100 H, Urine Glucose [...] 92.6 H, Lymph % (Auto) 3.5 L, Glades % (Auto) 2.6, Eos % (Auto) 0.1, [...] 94.7 H, Lymph % (Auto) 2.7 L, Glades % (Auto) 1.5, Eos % (Auto) 0.0, [...] Clarity Clear, Urine pH 6.0, Ur Specific Aldrich 1.020, Urine Protein 100 H, Urine Glucose [...] 92.6 H, Lymph % (Auto) 3.5 L, Glades % (Auto) 2.6, Eos % (Auto) 0.1, [...] 20:06 IMPRESSION: No Acute Findings. Reading Location: [facility] Abdomen/Pelvis CT 07/20/24 21:15 IMPRESSION: 1. No acute findings in the abdomen and pelvis. 2. Mild hepatomegaly with heterogenous hepatic attenuation. 3. Small abdominopelvic ascites. Reading Location: [facility] Chest CTA 07/20/24 21:15 IMPRESSION: 1. No evidence of pulmonary embolism. 2. Diffuse interlobular septal thickening, scattered ground-glass opacities and bilateral pleural effusions, concerning for pulmonary edema. 3. Cardiomegaly, with trace pericardial effusion. 4. Contrast reflux into the hepatic veins suggestive of right heart dysfunction. Reading Location: [facility] 07/21/24 1326 Cosigner Signature (if applicable): CC: Dr. Dex Wilkinson MD~ Signed [facility]05-10-2025 Progress note [facility] Medical Records Department [address] [place] [address] Progress Note - Hospitalist 07/21/24 0753 MR#: [id number] Acct: [id number] Name: MICHELLE MITCHELL Rep #:[id number] : 1980 43 From: Willian Ovalles DO PCP: Dr. Dex Wilkinson MD Status:A DM IN Location: [place] [address] Reason for Visit Reason for Visit: Diagnoses [...] 94.7 H, Lymph % (Auto) 2.7 L, Glades % (Auto) 1.5, Eos % (Auto) 0.0, [...] Albumin 4.3, Globulin 2.5, Albumin/Globulin Ratio 1.7, [id number] 07/20/24 20:05: Urine Color Straw, Urine Clarity Clear, Urine pH 6.0, Ur Specific Aldrich 1.020, Urine Protein 100 H, Urine Glucose [...] 92.6 H, Lymph % (Auto) 3.5 L, Glades % (Auto) 2.6, Eos % (Auto) 0.1, [...] 20:06 IMPRESSION: No Acute Findings. Reading Location: [facility] Abdomen/Pelvis CT 07/20/24 21:15 IMPRESSION: 1. No acute findings in the abdomen and pelvis. 2. Mild hepatomegaly with heterogenous hepatic attenuation. 3. Small abdominopelvic ascites. Reading Location: [facility] Chest CTA 07/20/24 21:15 IMPRESSION: 1. No evidence of pulmonary embolism. 2. Diffuse interlobular septal thickening, scattered ground-glass opacities and bilateral pleural effusions, concerning for pulmonary edema. 3. Cardiomegaly, with trace pericardial effusion. 4. Contrast reflux into the hepatic veins suggestive of right heart dysfunction. Reading Location: [facility] Physical Exam Const alert and no apparent [...] prophylaxis: LMWH. Charges/Coding Visit Charges Inpatient E&M: 31280 Subs Hosp L2 07/21/24 1137 Cosigner Signature (if applicable): CC: ~ Signed [facility]05-10-2025 History and physical note Author Sergio Whalen [facility] Note Date/Time July 21, 2024 6:28a m [facility] Medical Records Department [address] [place] [address] H&P Exam - Hospitalist 07/20/24 2322 MR#: [id number] Acct: [id number] Name: ALBARAUL AWADBREANNE Stephens Rep #:[id number] : 1980 43 From: Sergio Giles DO PCP: Dr. Dex Wilkinson MD Status:A DM IN Location: [address] - General General Date of Admission: 07/21/24 Date of Service: 07/20/24 Chief Complaint: SOB and Near Syncope. HPI Narrative MICHELLE ALBADELMI, is a 43 F with a past [...] recent colonoscopy ~8 days ago who presentsto [facility] complaining of shortness of breath and near syncope. Ms. Mitchell reports her symptoms began approximately 3 weeks ago on Tuesday, July 01, 2024 with diffuse, generalized abdominal pain that was constant and moderate - but was made acutely wore after her recent colonoscopy culminating in her "turning blue" and almost passing out just prior to [...] is expected to extend beyond 2 midnights. [facility] Medical History (Updated 07/21/24 @ 01:[address] 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 Resp: Patient admits to SOB and "turning blue" as per HPI. She denies cough. CV: [...] 94.7 H, Lymph % (Auto) 2.7 L, Glades % (Auto) 1.5, Eos % (Auto) 0.0, [...] Clarity Clear, Urine pH 6.0, Ur Specific Aldrich 1.020, Urine Protein 100 H, Urine Glucose [...] 20:06 IMPRESSION: No Acute Findings. Reading Location: [facility] Abdomen/Pelvis CT 07/20/24 21:15 IMPRESSION: 1. No acute findings in the abdomen and pelvis. 2. Mild hepatomegaly with heterogenous hepatic attenuation. 3. Small abdominopelvic ascites. Reading Location: [facility] Chest CTA 07/20/24 21:15 IMPRESSION: 1. No evidence of pulmonary embolism. 2. Diffuse interlobular septal thickening, scattered ground-glass opacities and bilateral pleural effusions, concerning for pulmonary edema. 3. Cardiomegaly, with trace pericardial effusion. 4. Contrast reflux into the hepatic veins suggestive of right heart dysfunction. Reading Location: [facility] Assessment & Plan Assessment/Plan (1) Heart failure [...] to evaluate LVEF. Finally, we will consult [facility] to see this patient on [...] culture and sensitivity data. Give acetaminophen prn [id number] (level 1-5/10) pain or fever. Give low-dose [...] 75 minutes. Charges/Coding Visit Charges Inpatient E&M: 27900 Init Hosp 07/21/24 0628 <Electronically signed by Sergio Umaña DO> Cosigner Signature (if applicable): CC: Dr. Sergio Umaña DO; Dr. Dex Wilkinson MD~ Signed [facility] Work Phone: [phone]) 482-421405-10-2025 History and physical note [facility] Medical Records Department [address] [place] [address] H&P Exam - Hospitalist 07/20/24 2322 MR#: [id number] Acct: [id number] Name: MICHELLE MITCHELL Rep #:[id number] : 1980 43 From: Sergio Giles DO PCP: Dr. Dex Wilkinson MD Status:A DM IN Location: [facility] QOR304- 1 HPI - General General Date of [...] recent colonoscopy ~8 days ago who presentsto [facility] complaining of shortness of breath and near syncope. Ms. Mitchell reports her symptoms began approximately 3 weeks ago on Monday, July 01, 2024 with diffuse, generalized abdominal pain that was constant and moderate - but was made acutely wore after her recent colonoscopy culminating in her "turning blue" and almost passing out just prior to [...] is expected to extend beyond 2 midnights. [facility] Medical History (Updated 07/21/24 @ 01:[address] 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 Resp: Patient admits to SOB and "turning blue" as per HPI. She denies cough. CV: [...] 94.7 H, Lymph % (Auto) 2.7 L, Glades % (Auto) 1.5, Eos % (Auto) 0.0, [...] Clarity Clear, Urine pH 6.0, Ur Specific Aldrich 1.020, Urine Protein 100 H, Urine Glucose [...] 20:06 IMPRESSION: No Acute Findings. Reading Location: [facility] Abdomen/Pelvis CT 07/20/24 21:15 IMPRESSION: 1. No acute findings in the abdomen and pelvis. 2. Mild hepatomegaly with heterogenous hepatic attenuation. 3. Small abdominopelvic ascites. Reading Location: [facility] Chest CTA 07/20/24 21:15 IMPRESSION: 1. No evidence of pulmonary embolism. 2. Diffuse interlobular septal thickening, scattered ground-glass opacities and bilateral pleural effusions, concerning for pulmonary edema. 3. Cardiomegaly, with trace pericardial effusion. 4. Contrast reflux into the hepatic veins suggestive of right heart dysfunction. Reading Location: [facility] Assessment & Plan Assessment/Plan (1) Heart failure [...] to evaluate LVEF. Finally, we will consult [facility] to see this patient on [...] culture and sensitivity data. Give acetaminophen prn [id number] (level 1-5/10) pain or fever. Give low-dose [...] 75 minutes. Charges/Coding Visit Charges Inpatient E&M: 43805 Init Hosp 07/21/24 0628 Cosigner Signature (if applicable): CC: Dr. Sergio Umaña DO; Dr. Dex Wilkinson MD~ Signed [facility]05-10-2025 Discharge summary Author Carlos Nair [facility] Note Date/Time July 20, 2024 11:28p m [facility] Medical Records Department [address] [place] [address] Emergency Department Summary 07/20/24 MR#: [id number] Acct: [id number] Name: MICHELLE MITCHELL Rep #:[id number] : 1980 43 From: Carlos Jama PCP: Dr. 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 Torrez (internal medicine) [facility] Narrative: Patient was initially tachypneic otherwise afebrile [...] anemia or thrombocytopenia noted BMP without significant [place] abnormalities, no sign of RADHA, LFTs within [...] to PCU This note was generated with [employer] dictation software. It may contain incorrectwords, spelling, [...] 94.7 H Lymph % (Auto) 2.7 L Glades % (Auto) 1.5 Eos % (Auto) 0.0 [...] Clarity Clear Urine pH 6.0 Ur Specific Aldrich 1.020 Urine Protein 100 H Urine Glucose [...] 20:06 IMPRESSION: No Acute Findings. Reading Location: [facility] Chest CTA 07/20/24 21:15 IMPRESSION: 1. No evidence of pulmonary embolism. 2. Diffuse interlobular septal thickening, scattered ground-glass opacities and bilateral pleural effusions, concerning for pulmonary edema. 3. Cardiomegaly, with trace pericardial effusion. 4. Contrast reflux into the hepatic veins suggestive of right heart dysfunction. Reading Location: [facility] Discharge Plan Triage Chief Complaint: Shortness of [...] g PO DAILY Primary Care Provider: Dex Wilkinson Referrals: Dex Wilkinson MD [Primary Care Provider] - Print Language: Spanish What to do if you have Problems For any increased pain, shortness of breath, bleeding, nausea or vomiting, chestpain, or any unexpected problems, contact your Primary Care Provider. Call [facility] ([phone]) or report to the closest Emergency Room. Call 911 if necessary. 07/20/247 <Electronically signed by Carlos Nair DO> Cosigner Signature (if applicable): CC: Dr. Dex Wilkinson MD ~ Signed [facility] Work Phone: 1(338) 549-865405-09-2025 Discharge summary [facility] Medical Records Department [address] [place] [address] Emergency Department Summary 07/20/24 MR#: [id number] Acct: [id number] Name: ALBADELMIMICHELLE Rep #:[id number] 2 : 1980 43 From: Carlos Jama PCP: Dr. Dex Wilkinson MD Status:R EG ER Location: ED HPI History of Present Illness Chief Complaint: Shortness of Breath [facility] Medical History Cancer History of steroid therapy Easy bruising Migraine headache History of hiatal hernia History of ulceration History of IBS Abdominal bloating Stomach pain Nausea & vomiting Shortness of breath on exertion Smoker History of echocardiogram Chest pain Pulmonary embolism Endometrial cancer Cervical cancer USP current use of 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 Ovarian cancer GERD [...] albuterol sulfate 90 mcg/actuation 1 inh inhalation MN N 07/26/23 Unknown History aerosol inhaler oxycodone-acetaminophen [...] evening and she had an episode of "turning blue" and almost passing out she presents to [...] reviewed, Vital signs reviewed Constitutional: please see [facility] HENT: MMM Eyes: Pupils equal round and [...] others: none Consults: Dr. Torrez (internal medicine) [facility] Narrative: Patient was initially tachypneic otherwise afebrile [...] anemia or thrombocytopenia noted BMP without significant [place] abnormalities, no sign of RADHA, LFTs within [...] to PCU This note was generated with [employer] dictation software. It may contain incorrectwords, spelling, [...] 94.7 H Lymph % (Auto) 2.7 L Glades % (Auto) 1.5 Eos % (Auto) 0.0 [...] Clarity Clear Urine pH 6.0 Ur Specific Aldrich 1.020 Urine Protein 100 H Urine Glucose [...] 20:06 IMPRESSION: No Acute Findings. Reading Location: [facility] Chest CTA 07/20/24 21:15 IMPRESSION: 1. No evidence of pulmonary embolism. 2. Diffuse interlobular septal thickening, scattered ground-glass opacities and bilateral pleural effusions, concerning for pulmonary edema. 3. Cardiomegaly, with trace pericardial effusion. 4. Contrast reflux into the hepatic veins suggestive of right heart dysfunction. Reading Location: [facility] Discharge Plan Triage Chief Complaint: Shortness of [...] g PO DAILY Primary Care Provider: Dex Wilkinson Referrals: Dex Wilkinson MD [Primary Care Provider] - Print Language: Spanish What to do if you have Problems For any increased pain, shortness of breath, bleeding, nausea or vomiting, chestpain, or any unexpected problems, contact your Primary Care Provider. Call [facility] ([phone]) or report tothe closest Emergency Room. Call 911 if necessary. 07/20/24 3896 Cosigner Signature (if applicable): CC: Dr. Dex Wilkinson MD ~ Signed [facility]05-09-2025 Radiology Diagnostic study note [facility] [address] [place] [address] Abdomen/Pelvis W IV Cont ONLY MR#: [id number] Acct: [id number] Name: MICHELLE MITCHELL Rep #: [id number] : 1980 F 43 From: Mariana Moreno MD PCP: Dr. Dex Wilkinson MD Status: R EG ER Study:Abdomen/Pelvis W IV Cont ONLY Date of E xam: 07/20/24 Exam# [id number] Ordering Dr: Almaz Nair DO PROCEDURE: ABDOMEN/PELVIS [...] attenuation. 3. Small abdominopelvic ascites. Reading Location: [facility] CC: Dr. Dex Wilkinson MD; Dr. Carlos Nair DO ~ Animal Keeper Head: Signed [facility]05-09-2025 Radiology Diagnostic study note [facility] [address] [address] CTA Chest W/WO Contrast MR#: [id number] Acct: [id number] Name: MICHELLE MITCHELL Rep #: [id number] 2 : 1980 F 43 From: Mariana Moreno MD PCP: Dr. Dex Wilkinson MD Status: R EG ER Study:CTA Chest W/WO Contrast Date of Exam: 07/20/24 Exam# [id number] Ordering Dr: Almaz Nair DO PROCEDURE: CTA [...] suggestive of right heart dysfunction. [facility] CC: Dr. Dex Wilkinson MD; Dr. Carlos Nair DO ~ Animal Keeper Head: Signed [facility]05-09-2025 Radiology Diagnostic study note [facility] [address] [place] [address] Chest 1 View (Portable) MR#: [id number] Acct: [id number] Name: MICHELLE MITCHELL Rep #: [id number] : 1980 F 43 From: Mariana Moreno MD PCP: Dr. Dex Wilkinson MD Status: R EG ER Study:Chest 1 View (Portable) Date of Exam: 07/20/24 Exam# [id number] Ordering Dr: Almaz Nair DO PROCEDURE: CHEST 1 VIEW (PORTABLE) 07/20/2024 REASON FOR EXAM: SHORTNESS OF BREATH TECHNIQUE: Frontal view of the chest. COMPARISON: 07/04/2023 FINDINGS: Hardware: Right pacemaker, unchanged. Heart: Cardiac and mediastinal contours are stable. Lungs: No focal consolidation. No pneumothorax. No pleural effusion. Bones: The bones are unremarkable. Other: RAD/Chest 1 View (Portable) IMPRESSION: No Acute Findings. Reading Location: [facility] CC: Dr. Dex Wilkinson MD; Dr. Carlos Nair DO ~ Animal Keeper Head: Signed [facility]05-09-2025 Discharge summary Author Carlos Nair [facility] Note Date/Time July 20, 2024 11:28p m [facility] Medical Records Department [address] [place] [address] Emergency Department Summary 07/20/24 MR#: [id number] Acct: [id number] Name: MICHELLE MITCHELL Rep #:[id number] 2 : 1980 43 From: Carlos Jama PCP: Dr. 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 Torrez (internal medicine) [facility] Narrative: Patient was initially tachypneic otherwise afebrile [...] to PCU This note was generated with [employer] dictation software. It may contain incorrectwords, spelling, [...] 94.7 H Lymph % (Auto) 2.7 L Glades % (Auto) 1.5 Eos % (Auto) 0.0 [...] Clarity Clear Urine pH 6.0 Ur Specific Aldrich 1.020 Urine Protein 100 H Urine Glucose [...] 20:06 IMPRESSION: No Acute Findings. Reading Location: [facility] Chest CTA 07/20/24 21:15 IMPRESSION: 1. No evidence of pulmonary embolism. 2. Diffuse interlobular septal thickening, scattered ground-glass opacities and bilateral pleural effusions, concerning for pulmonary edema. 3. Cardiomegaly, with trace pericardial effusion. 4. Contrast reflux into the hepatic veins suggestive of right heart dysfunction. Reading Location: [facility] Discharge Plan Triage Chief Complaint: Shortness of [...] g PO DAILY Primary Care Provider: Dex Wilkinson Referrals: Dex Wilkinson MD [Primary Care Provider] - Print Language: Spanish What to do if you have Problems For any increased pain, shortness of breath, bleeding, nausea or vomiting, chestpain, or any unexpected problems, contact your Primary Care Provider. Call [facility] ([phone]) or report to the closest Emergency Room. Call 911 if necessary. 07/20/242327 <Electronically signed by Carlos Nair DO> Cosign Signature (if applicable): CC: Dr. Dex Wilkinson MD ~ Signed [facility] Work Phone: 1(690) 141-472805-01-2025 [facility]04-27-2025 NoteHNO ID: [id number] Author: DEJA CASTELAN RN Service: Care Management Author Type: Registered [...] Physician Primary Care Physician Name/Phone: Dr. Dex Wilkinson- [phone] Additional Information: Discharge order written for today. No skilled home going needs identified at discharge. SIGNATURE: Deja Castelan RN PATIENT NAME: Michelle Mitchell DATE: July 08, 2024 TIME: 7:29 AMBluffton HospitalEcqrsxva44-99-1681 NoteHNO ID: [id number] Author: DEX WILKINSON MD Service: [facility] Author Type: Physician Type: Progress Notes Filed: 07/07/2024 08:22 Note Text: INPATIENT PROGRESS NOTES Patient Name: Michelle Mitchell DATE of SERVICE: 07/07/2024 TIME of SERVICE: 8:21 AM PRIMARY SERVICE: [facility] INTERVAL HPI: had EGD - showed [...] (97.7 ?F) Oral 70 16 95 % 07/05/24 2001 136/87 36.5 ?C (97.7 ?F) Oral 62 [...] MPV 10.3 Coags: No results for input(s): "PT", "INR", "APTT" in the last 24 hours. CMP: Recent Labs 07/07/24 0557 NA 139 K 4.1 CHLOR 104 CO2 25 BUN 7 CREAT 0.81 GLUC 104* TPROT 6.3 CA 9.0 TBILI 1.3 ALKPHOS 118 ALT 24 AST 20 ANION 10 Cardiac Enzymes: No results for input(s): "CK", "MB", "CKMB", "TROPT" in the last 24 hours. Liver Function, Amylase, Lipase: Recent Labs 07/07/24 0557 TPROT 6.3 ALB 3.7* ALT 24 AST 20 ALKPHOS 118 TBILI 1.3 ABG's: No results for input(s): "PH", "PCO2", "PO2", "BE", "HCO3", "CO2CT", "O2HB", "COHB", "MHGB", "TEMP", "PHTC", "PCO2T", "PO2T", "O2AD" in the last 24 hours. MG/PHOS: No results for input(s): "MG", "P" in the last 24 hours. Plan of care discussed with: . SIGNATURE: Dex Wilkinson MD DATE: July 07, 2024 TIME: 8:21 [facility] CenterIexfvijb89-63-0334 NoteHNO ID: [id number] Author: TANJA VALVERDE RN Service: Care Management [...] Mitchell DATE: July 06, 2024 TIME: 11:23 [facility] CenterTlldjsnx43-45-8727 NoteHNO ID: [id number] Author: DEX WILKINSON MD Service: Family Practice Author Type: Physician [...] -- -- -- -- 162.6 cm (5' 4") -- 07/04/242152 -- -- -- -- -- -- -- 60.2 kg (132 lb 11.5 oz) 07/04/242149 117/78 36.4 ?C (97.5 ?F) Oral 66 18 97 % -- -- 07/04/24 2134 136/80 -- -- 77 20 99 % -- -- 07/04/242018 141/80 -- -- -- -- -- -- -- 07/04/24 1959 [...] MPV 10.6 Coags: No results for input(s): "PT", "INR", "APTT" in the last 24 hours. CMP: Recent Labs 07/06/24 0536 NA 138 K 3.9 CHLOR 102 CO2 25 BUN 9 CREAT 0.85 GLUC 91 TPROT 6.2* CA 9.2 TBILI 1.3 ALKPHOS 134* ALT 32 AST 24 ANION 11 Cardiac Enzymes: No results for input(s): "CK", "MB", "CKMB", "TROPT" in the last 24 hours. Liver Function, Amylase, Lipase: Recent Labs 07/06/24 0536 TPROT 6.2* ALB 4.1 ALT 32 AST 24 ALKPHOS 134* TBILI 1.3 ABG's: No results for input(s): "PH", "PCO2", "PO2", "BE", "HCO3", "CO2CT", "O2HB", "COHB", "MHGB", "TEMP", "PHTC", "PCO2T", "PO2T", "O2AD" in the last 24 hours. MG/PHOS: No results for input(s): "MG", "P" in the last 24 hours. Plan of care discussed with: . SIGNATURE: Dex Wilkinson MD DATE: July 06, 2024 TIME: 8:07 [facility] CenterZssjpcqg14-91-2332 NoteHNO ID: [id number] Author: RU GARCIA Academic Support Specialist Service: Clinical Cardiology Author Type: Academic Support Specialist Type: Progress Notes Filed: 07/05/2024 11:07 Note Text: Summary: Pacemaker Check Pacemaker checked with [employer] and data transmitted. Spoke to rep who will fax report directly to the floor. Floor notified.[facility] HospitalVowtymrp98-53-4991 NoteHNO ID: [id number] Author: TANJA VALVERDE, JAJA Service: Care Management Author Type: Registered Nurse Type: Care Mgt Initial Assessment Filed: 07/05/2024 09:10 Note Text: CARE MANAGEMENT: ASSESSMENT AND DISCHARGE PLAN SERVICE DATE: July 05, 2024 SERVICE TIME: 9:05 AM physical therapy supervisor spoke with patient to complete Care Management Assessment. Introduction made and role of Care Management explained. PCP: Dex Wilkinson MD - Patient confirmed. Primary Contact: Extended Emergency Contact Information Primary Emergency Contact: Babar Mitchell [address]: [address] [place] [address] Relation: Spouse Admission Status: Inpatient Insurance Provider: Work Market PPO Discharge Planning requested by: Per Department Practice Potential Transition Plans Home Advance Directives Current Advance Directive: None Banquet Director Attempted to Assist with AD Completion: Yes [...] General wellness, Be able to go home [place] [facility] [place] Explained: [place] [facility] [place] Given: No (Discharge Needs: To be Determined) Are you interested in bedside delivery of your medications? N/A Discharge Pharmacy Preference: [facility] in [place] Discharge Planning Participant(s): Family (Spouse and 19 [...] Mitchell DATE: July 05, 2024 TIME: 9:05 [facility] CenterIbsvizcb13-15-0249 NoteHNO ID: [id number] Author: ALEKSANDRA CALDWELL APRN.CNP Service: General Internal Medicine Author Type: Nurse Practitioner Type: Progress Notes Filed: 07/05/2024 00:00 Note Text: INTERNAL MEDICINE PROGRESS NOTE SERVICE DATE: 07/04/2024 SERVICE TIME: 2099 Primary Attending: Dr. Harris, Shanna Gamino MD Subjective CHIEF COMPLAINT: Abdominal Pain (was seen twice at [facility] her dr told her to come here [...] pain x3 days. Patient has presented to [facility] 2 times in the past few days with the same complaints and was discharge home. Patient continued to have worsening pain she discussed with her PCP Dr. Wilkinson who told her to go to [facility]. Lab work showing some mild transaminitis ALT/AST [...] BP Temp Temp src Pulse Resp SpO2 07/04/242018 141/80 -- -- -- -- -- 07/04/24 195 [...] Recent Labs 07/04/24 1 (more content not included)...[facility] HospitalJuhhkkrb32-77-0422 Evaluation note* Diagnosis Onset Date Resolution Status Admit Date Abdominal pain acute June 1:06pm Hypertrophic cardiomyopathy inactive July 04, 2024 11:17am ICD (implantable cardioverter-defibrillator) in place inactive July 04, 2024 11:17am Pacemaker inactive July 04 11:17am Hypertrophic cardiomyopathy inactive July 10, 2024 1:28pm ICD (implantable cardioverter-defibrillator) in place inactive July 10, 2024 1:28pm Abdominal pain acute July 12 9:45am GERD (gastroesophageal reflu x disease) acute July 12, 2024 9: 45am Abdominal pain acute July 21, 2024 12:26am Hemorrhagic gastritis acute July 21, 2024 12:26am HFrEF (heart failure with reduced ejection fraction) acute July 122024 12:26am Pulmonary hypertension acute 2024 12:26am Vegetation of heart valve acute July 21, 2024 12:26am Elevated troponin resolved July h2024 12:26am Nausea & vomiting resolved July h2024 [...] Pulmonary hypertension acute Ma y 2024 8:24am [facility] Work Phone: 1(450) 132-298104-22-2025 Evaluation note* Diagnosis Onset Date Resolution Status [...] 21, 2024 12:26am Elevated troponin resolved July 10t h2024 12:26am Nausea & vomiting resolved July 10 h2024 12:26am Acute systolic congestive he art [...] Pulmonary hypertension acute Ma y 2024 8:24am [facility] Work Phone: 1(885) 356-972904-22-2025 Evaluation note* Diagnosis Onset Date Resolution Status [...] 21, 2024 12:26am Elevated troponin resolved July 21t h2024 12:26am Nausea & vomiting resolved July 10 h2024 12:26am Acute systolic congestive he art [...] Pulmonary hypertension acute Ma y 2024 8:24am Abdominal pain acute August 20, 2024 5:47pm Dilated pancreatic duct acute J une 2024 5:47pm Elevated liver enzymes acute Ju ne 2024 5:47pm GERD (gastroesophageal reflu x disease) acute August 20, 2024 5 :47pm [facility] Work Phone: 1(106) 465-643804-22-2025 Evaluation note* Diagnosis Onset Date Resolution Status Admit Date Abdominal pain inactive June 1:06pm Hypertrophic cardiomyopathy inactive July 04, 2024 11:17am ICD (implantable cardioverter-defibrillator) in place inactive July 04, 2024 11:17am Pacemaker inactive July 04 11:17am Hypertrophic cardiomyopathy inactive July 10, 2024 1:28pm ICD (implantable cardioverter-defibrillator) in place inactive July 10, 2024 1:28pm Abdominal pain inactive July 12, 025 9:45am GERD (gastroesophageal reflu x disease) inactive July 12, 2024 9: 45am Hemorrhagic gastritis acute July 21, 2024 12:26am HFrEF (heart failure with reduced ejection fraction) acute July 122024 12:26am Pulmonary hypertension acute Ma y 2024 12:26am Vegetation of heart valve acute July 21, 2024 12:26am Elevated troponin resolved July h2024 12:26am Nausea & vomiting resolved July 10 h2024 12:26am Abdominal pain inactive July 21, 2024 12:26am Acute systolic congestive [...] etiology deleted July 21, 2024 1 2:26am Diarrhea acute August 08, 2024 8:24am Pulmonary hypertension acute Ma y 2024 8:24am Abdominal pain inactive August 08, 2024 8:24am GERD (gastroesophageal reflu x disease) inactive August 08, 2024 8 :24am Elevated liver enzymes resolved Ju ar 2024 5:47pm Abdominal pain inactive August 20, 2024 5:47pm Dilated pancreatic duct inactive J [facility] 2024 5:47pm GERD (gastroesophageal reflu x disease) inactive August 20, 2024 5 :47pm [facility] Work Phone: 1(638) 845-722104-20-2025 Radiology Diagnostic study note [facility] [address] [place] [address] Abdomen/Pelvis W IV Cont ONLY MR#: [id number] Acct: [id number] Name: MICHELLE MITCHELL Rep #: [id number] 2 : 1980 F 43 From: Natali Mancuso DO PCP: Dr. Dex Wilkinson MD Status: R EG ER Study:Abdomen/Pelvis W IV Cont ONLY Date of E xam: 07/01/24 Exam# [id number] Ordering Dr: Anita Wade PROCEDURE: ABDOMEN/PELVIS W [...] bilateral pleural effusion with atelectasis. Reading Location: [facility] CC: Dr. Dex Wilkinson MD; MARCIO Haywood ~ Animal Keeper Head: Signed [facility]04-20-2025 Telephone encounter Note* Telephone Encounter - Ella Cohen RN - 07/01/2024 3:41 PM EDT Your fax has been successfully sent to Dr. Wilkinson at [phone]. From: Ella Cohen RN 07/01/2024 3:37:02 PM Origin Record Created by SHANTE 07/01/2024 3:37:12 PM Conversion [RFPEEF5.tmp.PRT] Type: application/postscript G3 to TIFF #1: Success [image/g3] (77ms) GhostScript TIFF #1: Success [image/tiff] (209ms) ([id number]) 07/01/2024 3:37:18 PM Transmission Record Sent to [id number] with remote ID "[id number]" Result: Success Page record: 1 - 3 Elapsed time: 01:39 on channel 48 07/01/2024 3:37:19 PM Conversion Successfully created cover sheet. Type: application/vnd.openxmlformats-officedocument.wordprocessingml.document G3 to TIFF #1: Success [image/g3] (11ms) GhostScript TIFF #1: Success [image/tiff] (70ms) Resubmitted: [application/postscript] Word Automation #1: Success [image/g3] (1519ms) ([id number]:[id number]) [facility] SystemOfhbyp48-71-7500 Miscellaneous Notes* Telephone Encounter - Ella Cohen RN - 07/01/2024 3:41 PM EDT Your fax has been successfully sent to Dr. Wilkinson at [phone]. From: Ella Cohen RN 07/01/2024 3:37:02 PM Origin Record Created by SHANTE 07/01/2024 3:37:12 PM Conversion [RFPEEF5.tmp.PRT] Type: application/postscript G3 to TIFF #1: Success [image/g3] (77ms) GhostScript TIFF #1: Success [image/tiff] (209ms) ([id number]:[email or web address]) 07/01/2024 3:37:18 PM Transmission Record Sent to [id number] with remote ID "[id number]" Result: Success Page record: 1 - 3 Elapsed time: 01:39 on channel 48 07/01/2024 3:37:19 PM Conversion Successfully created cover sheet. Type: application/vnd.openxmlformats-officedocument.wordprocessingml.document G3 to TIFF #1: Success [image/g3] (11ms) GhostScript TIFF #1: Success [image/tiff] (70ms) Resubmitted: [application/postscript] Word Automation #1: Success [image/g3] (1519ms) ([id number]:WORKSRV1) * Telephone Encounter - Ella Cohen RN [...] she vomited dark brown material that smelled "fecal". 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 R: Patient understands care advice to go to ED now or call 911. Patient states she cannot leave [facility] at this time, but will go as soon as she has someone to take over care. Patient strongly advised to go immediately. She advises she will go to [place]. No further needs at this time. Patient instructed to call back with new or worsening symptoms. Reason for Disposition [1] SEVERE pain (e.g., excruciating) AND [2] present > 1 hour Answer Assessment - Initial Assessment Questions 1. LOCATION: "Where does it hurt?" Upper, under breasts, to belly button, mostly on left 2. RADIATION: "Does the pain shoot anywhere else?" (e.g., chest, back) Shoots into right shoulder 3. ONSET: "When did the pain begin?" (e.g., minutes, hours or days ago) 3 days ago, started as dull ache, no unbearable 4. SUDDEN: "Gradual or sudden onset?" Gradually 5. PATTERN "Does the pain come and go, or is it constant?" Constant 6. SEVERITY: "How bad is the pain?" (e.g., Scale 1-10; mild, moderate, or severe) 9 7. RECURRENT SYMPTOM: "Have you ever had this type of stomach pain before?" If Yes, ask: "When was the last time?" and "What happened that time?" no 8. AGGRAVATING FACTORS: "Does anything seem to cause this pain?" (e.g., foods, stress, alcohol) No, doesn't want to eat, vomiting dark brown, smelled fecal 9. CARDIAC SYMPTOMS: "Do you have any of the following symptoms: chest pain, difficulty breathing, sweating, nausea?" No chest pain, yes difficulty breathing, sweating but no fever, does have nausea 10. OTHER SYMPTOMS: "Do you have any other symptoms?" (e.g., back pain, diarrhea, fever, urination pain, vomiting) No fever, vomited twice, thought it was gas 11. : "Is there any chance you are ?" "When was your last menstrual period?" no Protocols used: Abdominal Pain- [id number] documented in this [facility]04-20-2025 Telephone encounter Note* Telephone Encounter - [...] she vomited dark brown material that smelled "fecal". 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 R: Patient understands care advice to go to ED now or call 911. Patient states she cannot leave [facility] at this time, but will go as soon as she has someone to take over care. Patient strongly advised to go immediately. She advises she will go to [place]. No further needs at this time. Patient instructed to call back with new or worsening symptoms. Reason for Disposition [1] SEVERE pain (e.g., excruciating) AND [2] present > 1 hour Answer Assessment - Initial Assessment Questions 1. LOCATION: "Where does it hurt?" Upper, under breasts, to belly button, mostly on left 2. RADIATION: "Does the pain shoot anywhere else?" (e.g., chest, back) Shoots into right shoulder 3. ONSET: "When did the pain begin?" (e.g., minutes, hours or days ago) 3 days ago, started as dull ache, no unbearable 4. SUDDEN: "Gradual or sudden onset?" Gradually 5. PATTERN "Does the pain come and go, or is it constant?" Constant 6. SEVERITY: "How bad is the pain?" (e.g., Scale 1-10; mild, moderate, or severe) 9 7. RECURRENT SYMPTOM: "Have you ever had this type of stomach pain before?" If Yes, ask: "When was the last time?" and "What happened that time?" no 8. AGGRAVATING FACTORS: "Does anything seem to cause this pain?" (e.g., foods, stress, alcohol) No, doesn't want to eat, vomiting dark brown, smelled fecal 9. CARDIAC SYMPTOMS: "Do you have any of the following symptoms: chest pain, difficulty breathing, sweating, nausea?" No chest pain, yes difficulty breathing, sweating but no fever, does have nausea 10. OTHER SYMPTOMS: "Do you have any other symptoms?" (e.g., back pain, diarrhea, fever, urination pain, vomiting) No fever, vomited twice, thought it was gas 11. : "Is there any chance you are ?" "When was your last menstrual period?" no Protocols used: Abdominal Pain- Gikdz-[id number]-NL [facility] SystemOsbusu42-88-5123 NoteHNO ID: [id number] Author: VANDANA CASTILLO RN Service: Care Management Author Type: Registered [...] Care Physician Primary Care Physician Name/Phone: Dex Wilkinson MD - [phone] Additional Information: Orders received for patient to discharge home. No skilled needs noted. Patient agreeable to discharge plan. Spouse to transport home. Bedside RN updated. SIGNATURE: Vandana Castillo RN PATIENT NAME: Michelle Mitchell DATE: May 21, 2024 TIME: 8:37 AMBluffton HospitalSunrbwpi68-39-0959 NoteHNO ID: [id number] Author: LUIS MIGUEL VUONG MD Service: Cardiovascular [...] (Temporal) Resp 18 Ht 160 cm (5' 3") Wt 52.7 kg (116 lb 2.9 oz) [...] 14 Cardiac Enzymes: No results for input(s): "CK", "MB", "CKMB", "TROPT" in the last 24 hours. SIGNATURE: Luis Miguel Vuong MD CELL; [phone] DATE: May 20, 2024 TIME: 11:40 [facility] CenterGslohofu64-60-6917 NoteHNO ID: [id number] Author: DEX WILKINSON MD Service: Family Practice Author Type: Physician [...] Oral (!) 58 20 97 % -- 05/21/24399 -- -- -- 62 -- -- -- 05/21/24 0000 -- -- -- (!) 57 -- -- -- 05/20/247 113/56 36.3 ?C (97.4 ?F) Oral 61 18 96 % -- 05/20/242049 112/54 36.3 ?C (97.3 ?F) Oral (!) [...] -- -- (!) 55 -- -- -- 05/20/24399 115/56 36.7 ?C (98.1 ?F) Temporal (!) [...] MPV 10.0 Coags: No results for input(s): "PT", "INR", "APTT" in the last 24 hours. CMP: No results for input(s): "NA", "K", "CHLOR", "CO2", "BUN", "CREAT", "GLUC", "TPROT", "CA", "MG", "ALBUMIN", "TBILI", "ALKPHOS", "ALT", "AST", "ANION" in the last 24 hours. Cardiac Enzymes: No results for input(s): "CK", "MB", "CKMB", "TROPT" in the last 24 hours. Liver Function, Amylase, Lipase: No results for input(s): "TPROT", "ALB", "ALT", "AST", "ALKPHOS", "TBILI", "AMYLASE", "LIPASE", "LACTATE" in the last 24 hours. ABG's: No results for input(s): "PH", "PCO2", "PO2", "BE", "HCO3", "CO2CT", "O2HB", "COHB", "MHGB", "TEMP", "PHTC", "PCO2T", "PO2T", "O2AD" in the last 24 hours. MG/PHOS: No results for input(s): "MG", "P" in the last 24 hours. Plan of care discussed with: . SIGNATURE: Dex Wilkinson MD DATE: May 21, 2024 TIME: 8:16 AMBluffton HospitalWwmhgxmn99-33-3069 NoteHNO ID: [id number] Author: DEX WILKINSON MD Service: Family Practice Author Type: Physician [...] Temp src Pulse Resp SpO2 Weight 05/19/24 07 -- -- -- -- -- -- 52.8 kg (116 lb 6.5 oz) 05/19/24399 -- -- -- (!) 55 -- 97 [...] intact., DATA: CBC: No results for input(s): "WBC", "RBC", "HB", "HCT", "PLT", "MCV", "MCH", "MPV", "RDW" in the last 24 hours. Coags: No results for input(s): "PT", "INR", "APTT" in the last 24 hours. CMP: No results for input(s): "NA", "K", "CHLOR", "CO2", "BUN", "CREAT", "GLUC", "TPROT", "CA", "MG", "ALBUMIN", "TBILI", "ALKPHOS", "ALT", "AST", "ANION" in the last 24 hours. Cardiac Enzymes: No results for input(s): "CK", "MB", "CKMB", "TROPT" in the last 24 hours. Liver Function, Amylase, Lipase: No results for input(s): "TPROT", "ALB", "ALT", "AST", "ALKPHOS", "TBILI", "AMYLASE", "LIPASE", "LACTATE" in the last 24 hours. ABG's: No results for input(s): "PH", "PCO2", "PO2", "BE", "HCO3", "CO2CT", "O2HB", "COHB", "MHGB", "TEMP", "PHTC", "PCO2T", "PO2T", "O2AD" in the last 24 hours. MG/PHOS: No results for input(s): "MG", "P" in the last 24 hours. Plan of care discussed with: . SIGNATURE: Dex Wilkinson MD DATE: May 19, 2024 TIME: 7:24 AMBluffton HospitalXbbmeiah68-20-9535 NoteHNO ID: [id number] Author: JUNIOR SPICER LISW Service: Care Management Author Type: Clip Coater Type: Care Mgt Progress Note Filed: 05/18/2024 [...] Mitchell DATE: May 18, 2024 TIME: 4:49 PMBluffton HospitalBlitclqd34-52-8027 NoteHNO ID: [id number] Author: DEX WILKINSON MD Service: Family Practice Author Type: Physician [...] ?F) Temporal 66 18 95 % -- 05/18/241999 -- -- -- 64 -- 94 % [...] Oral (!) 59 18 94 % -- 05/17/24 2000 -- -- -- 61 -- -- -- [...] intact., DATA: CBC: No results for input(s): "WBC", "RBC", "HB", "HCT", "PLT", "MCV", "MCH", "MPV", "RDW" in the last 24 hours. Coags: No results for input(s): "PT", "INR", "APTT" in the last 24 hours. CMP: No results for input(s): "NA", "K", "CHLOR", "CO2", "BUN", "CREAT", "GLUC", "TPROT", "CA", "MG", "ALBUMIN", "TBILI", "ALKPHOS", "ALT", "AST", "ANION" in the last 24 hours. Cardiac Enzymes: No results for input(s): "CK", "MB", "CKMB", "TROPT" in the last 24 hours. Liver Function, Amylase, Lipase: No results for input(s): "TPROT", "ALB", "ALT", "AST", "ALKPHOS", "TBILI", "AMYLASE", "LIPASE", "LACTATE" in the last 24 hours. ABG's: No results for input(s): "PH", "PCO2", "PO2", "BE", "HCO3", "CO2CT", "O2HB", "COHB", "MHGB", "TEMP", "PHTC", "PCO2T", "PO2T", "O2AD" in the last 24 hours. MG/PHOS: No results for input(s): "MG", "P" in the last 24 hours. Plan of care discussed with: Provider, RN, Patient. SIGNATURE: Dex Wilkinson MD DATE: May 19, 2024 TIME: 7:11 [facility] CenterYwnvelot66-49-8709 NoteHNO ID: [id number] Author: DEX WILKINSON MD Service: Family Practice Author Type: Physician [...] Temp Temp src Pulse Resp SpO2 Weight 05/18/24 0400 -- -- -- (!) 56 [...] -- -- -- 61 -- -- -- 05/17/241599 -- -- -- 61 -- -- -- [...] -- -- -- 60 -- -- -- 05/17/24 0417 -- -- -- (!) 56 -- -- -- 05/17/24 0400 -- -- -- (!) 55 -- -- -- 05/17/24 0312 102/58 36.2 ?C (97.1 ?F) Temporal 63 [...] ?F) Temporal 70 18 97 % -- 05/16/241999 -- -- -- 62 -- 98 % -- 05/16/24 194 102/74 36.2 ?C (97.1 ?F) Temporal 68 [...] intact., DATA: CBC: No results for input(s): "WBC", "RBC", "HB", "HCT", "PLT", "MCV", "MCH", "MPV", "RDW" in the last 24 hours. Coags: No results for input(s): "PT", "INR", "APTT" in the last 24 hours. CMP: No results for input(s): "NA", "K", "CHLOR", "CO2", "BUN", "CREAT", "GLUC", "TPROT", "CA", "MG", "ALBUMIN", "TBILI", "ALKPHOS", "ALT", "AST", "ANION" in the last 24 hours. Cardiac Enzymes: No results for input(s): "CK", "MB", "CKMB", "TROPT" in the last 24 hours. Liver Function, Amylase, Lipase: No results for input(s): "TPROT", "ALB", "ALT", "AST", "ALKPHOS", "TBILI", "AMYLASE", "LIPASE", "LACTATE" in the last 24 hours. ABG's: No results for input(s): "PH", "PCO2", "PO2", "BE", "HCO3", "CO2CT", "O2HB", "COHB", "MHGB", "TEMP", "PHTC", "PCO2T", "PO2T", "O2AD" in the last 24 hours. MG/PHOS: No results for input(s): "MG", "P" in the last 24 hours. Plan of care discussed with: . SIGNATURE: Dex Wilkinson MD DATE: May 18, 2024 TIME: 6:55 [facility] CenterXfvzqqcm61-63-8824 NoteHNO ID: [id number] Author: ALEXANDRIA COLE LSW Service: Care Management Author Type: Clip Coater Type: Care Mgt Initial Assessment Filed: 05/16/2024 12:57 Note Text: CARE MANAGEMENT: ASSESSMENT AND DISCHARGE PLAN SERVICE DATE: May 16, 2024 SERVICE TIME: 12:53 PM PCP: Dex Wilkinson MD-verified Primary Contact: Extended Emergency Contact Information Primary Emergency Contact: Babar Mitchell [address]: [address] [place] [address] [birth year][address] Mobile Relation: Spouse Admission Status: Inpatient Insurance Provider: Work Market PPO Discharge Planning requested by: Per Department Practice Potential Transition Plans Home, To Be Determined Advance Directives Current Advance Directive: None Banquet Director Attempted to Assist with AD Completion: Yes [...] Be able to go home, Less pain Belfair of Choice Explained: Belfair of Choice Given: No Reason Not Given: [...] Is from home w/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 Spouse to transport home when medically ready for discharge. SIGNATURE: Alexandria Cole FIBERGLASS TECHNICIAN, NURSE PRIVATE DUTY PATIENT NAME: Michelle Mitchell DATE: May 16, 2024 TIME: 12:53 PMBluffton HospitalYuuuhsig63-78-8926 NoteHNO ID: [id number] Author: DEX WILKINSON MD Service: Family Practice Author Type: Physician Type: Progress Notes Filed: 05/16/2024 08:04 Note Text: INPATIENT PROGRESS NOTES Patient Name: Michelle Mitchell DATE of SERVICE: 05/16/2024 TIME of SERVICE: 8:00 AM PRIMARY SERVICE: [facility] INTERVAL HPI: doing better No fevers [...] 61 20 96 % -- -- 05/15/241999 124/ 36.4 ?C (97.6 ?F) Temporal 70 20 96 % -- -- 05/15/24 181 149/96 36.6 ?C (97.8 ?F) Temporal 84 20 96 % 160 cm (5' 3") 54.3 kg (119 lb 11.4 oz) 05/15/24 [...] (!) 28 97 % 162.4 cm (5' 3.94") -- 05/15/24 1145 138/89 -- -- 75 [...] 10 Cardiac Enzymes: No results for input(s): "CK", "MB", "CKMB", "TROPT" in the last 24 hours. Liver Function, Amylase, Lipase: Recent Labs 05/16/24 0602 TPROT 6.0* ALB 3.6* ALT 49* AST 57* ALKPHOS 212* TBILI 0.7 ABG's: No results for input(s): "PH", "PCO2", "PO2", "BE", "HCO3", "CO2CT", "O2HB", "COHB", "MHGB", "TEMP", "PHTC", "PCO2T", "PO2T", "O2AD" in the last 24 hours. MG/PHOS: No results for input(s): "MG", "P" in the last 24 hours. Plan of care discussed with: . SIGNATURE: Dex Wilkinson MD DATE: May 16, 2024 TIME: 8:00 [facility] CenterAkpcnmrf65-04-5334 NoteHNO ID: [id number] Author: GIULIANO LEZAMA APRN.SLICE PLUG CUTTER OPERATOR Service: General Internal Medicine Author Type: Nurse Practitioner Type: Progress Notes Filed: 05/15/2024 19:01 Note Text: INTERNAL MEDICINE PROGRESS NOTE SERVICE DATE: 05/15/2024 SERVICE TIME: 1830 Primary Attending: Dex Anderson MD Subjective CHIEF [...] 84 20 96 % 160 cm (5' 3") 54.3 kg (119 lb 11.4 oz) 05/15/24 [...] 96 % -- (more content not included)... [facility] HospitalWgafnjer26-99-2094 KbxrMTCM-BXE-5 (AGENT OF COVID-19) RNA: Not detected INFLUENZA A RNA: Not detected INFLUENZA B RNA: Not detected RESPIRATORY SYNCYTIAL VIRUS (RSV) RNA: Not detectedBluffton HospitalComment on above:Performed By: #### [id number] ####GIBBS LABORATORYCLIA [id number] [address] OF [id number] Evaluation note* Diagnosis Onset Date Resolution Status Admit Date Hypertrophic cardiomyopathy acute March 28, 2024 11:28am ICD (implantable cardioverter-defibrillator) in place acute March 28 11:28am [facility] Work Phone: 1(331) 756-415401-15-2025 Evaluation note* Diagnosis Onset Date Resolution Status [...] 2024 1:28pm Abdominal pain acute July 12, 2 025 9:45am GERD (gastroesophageal reflu x disease) acute July 12, 2024 9: 45am Abdominal pain acute July 20, 2 025 11:40pm Elevated troponin acute July 11:40pm Heart failure of unknown etiology acute July 20, 2024 11 :40pm Hypertrophic cardiomyopathy acute July 20, 2024 11:40pm ICD (implantable cardioverter-defibrillator) in place acute July 20, 2024 11 :40pm Leukocytosis acute July 20 11:40pm Nausea & vomiting acute July 11:40pm Pacemaker acute July 20, 2024 11:40pm [facility] Work Phone: 1(671) 842-113001-15-2025 Evaluation note* Diagnosis Onset Date Resolution Status [...] 2024 1:28pm Abdominal pain acute July 12, 2 025 9:45am GERD (gastroesophageal reflu x disease) [...] 2024 12:26am Hypertension chronic July 21 12:26am [facility] Work Phone: 1(957) 591-151008-19-2024 Evaluation + Plan noteExtracted from: Title:Clinical Document Author:VICTOR M ORTIZ Date:10/31/23 [place] ADMISSION H[place]ORY AN D PHYSICIAL CHIEF COMPLAINT: HISTORY OF PRESENT ILLNESS: REVIEW OF SYSTEMS: ACTIVE PROBLEMS: (5) Anxiety associated with depression (785298617) Hypertrophic cardiomyopathy (366388123) IBS (irritable bowel syndrome) (79021143) Rectal bleeding (561930986) Tobacco use (9320747130) MEDICATIONS: Active Inpt Meds: None Active PRN Meds: None One Time Meds: None Active IV Meds: Lactated Ringers Infusion 1,000 mL (LR 1,000 mL) Start: 10/31/23 9:47:00 EDT, Rate: 50 mL/hr, 10/31/23 9:47:00 EDT ALLERGIES: (3) codeine morphine Zithromax FAMILY HISTORY: SOCIAL HISTORY: PHYSICAL EXAM: VITALS: KjgoeqIpkdXYFfjxxUCFnT2KCR3XjpwXf(kg) 10/30 10:0436.6--305809BA45/19 57.0 24 Hr Tmax: 36.6 at 10/30 [...] from: Title:Clinical Document Author:VICTOR M ORTIZ Date:10/31/23 [place] AD[place]ION H[place]ORY AN D PHYSICIAL CHIEF COMPLAINT: HISTORY OF PRESENT ILLNESS: REVIEW OF SYSTEMS: ACTIVE PROBLEMS: (5) Anxiety associated with depression (032558036) Hypertrophic cardiomyopathy (454605643) IBS (irritable bowel syndrome) (65731530) Rectal bleeding (936928572) Tobacco use (4230326949) MEDICATIONS: Active Inpt Meds: None Active PRN Meds: None One Time Meds: None Active IV Meds: Lactated Ringers Infusion 1,000 mL (LR 1,000 mL) Start: 10/31/23 9:47:00 EDT, Rate: 50 mL/hr, 10/31/23 9:47:00 EDT ALLERGIES: (3) codeine morphine Zithromax FAMILY HISTORY: SOCIAL HISTORY: PHYSICAL EXAM: VITALS: VhjgrjDlelPZGyphjFXMoR7NJK0PqunNo(kg) 10/30 10:0436.6--012811WJ69/19 57.0 24 Hr Tmax: 36.6 at 10/30 [...] changes to the H&P unless noted below. [facility] 08-19-2024 Hospital Discharge instructions Patient Education 10/31/2023 [...] until you are awake and alert. Take bzsv-yze-nzcpwpd and prescription medicines only as told by [...] 12/19/2013 Document Revised: 02/10/2018 Document Reviewed: 06/19/2016 [employer] Patient Education 2020 [employer] 10/31/2023 10:42:58 Colonoscopy, Adult, Care After, Conl-rw-Elqw Colonoscopy, Adult, Care After This sheet gives [...] are soft and easy to digest. Take htfq-rlt-rtdjlie or prescription medicines only as told by [...] 04/02/2011 Document Revised: 12/29/2017 Document Reviewed: 11/22/2016 [employer] Patient Education 2020 [employer]. Follow Up Care 10/13/2023 09:56:55 With:VICTOR M ORTIZ MD Address: [facility] [address] [place] [phone] When: Unknown Comments:The office will call within 2 weeks with pathology results and a follow up visit will be scheduled. [facility] 08-19-2024 Summary of episode note Discharge Instructions Thank you for allowing [facility] to assist you with your healthcare needs. The following is importantdischarge information regarding your hospital visit. Your Care Team DEX WILKINSON MD What to do next Follow Up Appointments Follow Up with VICTOR M ORTIZ MD [facility] [address] [place] [address]- [phone] Additional Information: The office will call within [...] until you are awake and alert. Take ndcn-gvq-skzfpdf and prescription medicines only as told by [...] 12/19/2013 Document Revised: 02/10/2018 Document Reviewed: 06/19/2016 [employer] Patient Education 2020 [employer] Colonoscopy, Adult, Care After This sheet gives [...] are soft and easy to digest. Take odmj-xgb-qmtkekb or prescription medicines only as told by [...] 04/02/2011 Document Revised: 12/29/2017 Document Reviewed: 11/22/2016 [employer] Patient Education 2020 [employer]. Additional Information VACCINATE! IT SAVES LIVES! Members of the community who have not yet received the COVID-19 vaccine and would like to receive it can visit one of [facility] vaccine clinics. There are many vaccine clinic locations within the [facility]. For locations and available times, please visit https://gettheshot.coronavirus.[place].gov/. It is important to note that some COVID mobile vaccine clinics are held outdoors and may be canceled in rainy or stormy conditions. To learn more about pediatric vaccinations (ages 5-11), we invite you to visit the [employer] webpage. https://www.[employer]il[employer].org/pages/9088-Bcyhm-Ymxynuxevzu-Wqgiaemusg-Gyotf-Bcb stions.htmlTo learn more about the COVID-19 vaccine, we invite you to visit the CDC website for a list of frequently asked questions.https://www.cdc.gov/coronavirus/2019-ncov/vaccines/faq.html [employer] Patient Portal Access Instructions: Stay connected with your healthcare team and access your personal medical information anytime with the [employer] Patient Portal. Please follow the directions below to create your [employer] account: 1.Access the email account you provided upon registration to the hospital/physician office.2.Look for an invitation email from [facility].3.Open the email and access the invitation link: AcceptInvitation to LatishaShopcade.4.Fill in the required pandey to create your account. To access your account, visit [facility] [employer]ge/Nanali. Click the blue button labeled "Access Patient Portal" and then log in with the username [...] who you will allowto register on the [facility] for access to your information. You can also access the [facility] on the [facility] johanna. Simply click on "Patient Portal" and then log into your account. If you would like to receive a full copy of your medical records, please contact the [facility] Medical Records Department by calling [phone], Tuesday through Tuesday between 8 a.m. and [...] Call your local pharmacy or go to [email or web address] to find one close to you.3.Make use of household items: Use cat litter or old coffee grounds to dispose medications if other options arenot available. Mix your drugs with these household products, seal them in an airtight container andthrow it into the garbage. Call [facility]: [phone] to be sure your drugs can be [...] Adult, Care After Colonoscopy, Adult, Care After, Jgbh-ka-Kwvm Medication Leaflets My discharge plan and instructions have been reviewed and explained to me and I,MICHELLE MITCHELL understand my current condition and have read and understand these discharge instructions. I have received a written copy of the plan/instructions. If I have questions, I am aware that I should contact my doctor. Patient/Extension Edger Signature: Date/Time: Relationship to Patient: Witness Name/Signature: Date/Time: [facility]08-19-2024 Note [place] ADMISSION HISTORY AND PHYSICIAL CHIEF COMPLAINT: HISTORY OF PRESENT ILLNESS: REVIEW OF SYSTEMS: ACTIVE PROBLEMS: (5) Anxiety associated with depression (286409796) Hypertrophic cardiomyopathy (139076664) IBS (irritable bowel syndrome) (42375510) Rectal bleeding (006440974) Tobacco use (6785842969) MEDICATIONS: Active Inpt Meds: None Active PRN Meds: None One Time Meds: None Active IV Meds: Lactated Ringers Infusion 1,000 mL (LR 1,000 mL) Start: 10/31/23 9:47:00 EDT, Rate: 50 mL/hr, 10/31/23 9:47:00 EDT ALLERGIES: (3) codeine morphine Zithromax FAMILY HISTORY: SOCIAL HISTORY: PHYSICAL EXAM: VITALS: AtcparDfzlBEIvuidOVHdH9SNL9SohvIj(kg) 10/30 10:0436.6--384085JV84/19 57.0 24 Hr Tmax: 36.6 at 10/30 [...] M ORTIZ MD on 10/31/2023 10:12 AM [facility]08-19-2024 Note [place] AD[place] H[place] AND PHYSICIAL CHIEF COMPLAINT: HISTORY OF PRESENT ILLNESS: REVIEW OF SYSTEMS: ACTIVE PROBLEMS: (5) Anxiety associated with depression (388585847) Hypertrophic cardiomyopathy (679648163) IBS (irritable bowel syndrome) (83788934) Rectal bleeding (396647870) Tobacco use (3410706638) MEDICATIONS: Active Inpt Meds: None Active PRN Meds: None One Time Meds: None Active IV Meds: Lactated Ringers Infusion 1,000 mL (LR 1,000 mL) Start: 10/31/23 9:47:00 EDT, Rate: 50 mL/hr, 10/31/23 9:47:00 EDT ALLERGIES: (3) codeine morphine Zithromax FAMILY HISTORY: SOCIAL HISTORY: PHYSICAL EXAM: VITALS: DfpdhlVszfUEOhpkrYHYjY2NGN0FhamSz(kg) 10/30 10:0436.6--402407BM71/19 57.0 24 Hr Tmax: 36.6 at 10/30 [...] M ORTIZ MD on 10/31/2023 10:11 AM [facility]08-19-2024 Anesthesiology Consult note Patient: MICHELLE MITCHELL Age: [...] Insertion of cardiac defibrillator using fluoroscopic guidance (6033001486). Comments: 10/26/2023 10:54 EDT - Sophie Gonzalez RN PACER WITH DEFIB Mastectomy of left breast (7726514032). Laparoscopic cholecystenterostomy (5354455150). H/O: tubal ligation (269460290). Ablation of uterine fibroid using magnetic resonance imaging guidance (1623887942). History of appendectomy (1952509701). Social History: Social & Psychosocial Habits Alcohol [...] Equipment: Extension set . Assessment and Plan [place] [employer] Anesthesiologists (ASA) physical status classification: Class II. Anesthetic Preoperative Plan Anesthetic technique: MAC. Postoperative pain management: Per surgeon. Informed consent: signed by patient. Digitally Signed by ANGELIA GIBBS APRNCameliaPEARL DIVER on 10/31/2023 10:06 AM [facility]04-22-2024 Telephone encounter Note* Telephone Encounter - Angela Krishna RN - 07/04/2023 7:34 PM EDT To:Angela Krishna 07/04/2023 7:33 PM Your fax has been successfully sent to Dr Wilkinson at [phone]. 07/04/2023 7:30:51 PM Transmission Record Sent to [phone] with remote ID "[id number]" Result: (0) Success Page record: 1 - 3 Elapsed time: 01:48 on channel 50 07/04/2023 7:29:28 PM Conversion Record Successfully created cover sheet. Type: application/vnd.openxmlformats-officedocument.wordprocessingml.document G3 to TIFF #1: Success [image/g3] (63ms) GhostScript TIFF #1: Success [image/tiff] (220ms) Resubmitted: [application/postscript] Word Automation #1: Success [image/tiff] (1411ms) ([id number]:WORKSRV2) 07/04/2023 7:29:06 PM Conversion Record [RFPDA51.tmp.PRT] Type: application/postscript G3 to TIFF #1: Success [image/g3] (92ms) GhostScript TIFF #1: Success [image/tiff] (359ms) (SHWP-PLAOS200:WORKSRV2) 07/04/2023 7:28:56 PM Origin Record Created by MERCEDES [facility] SystemZszeqg88-93-4890 Miscellaneous Notes* Telephone Encounter - Angela Krishna RN - 07/04/2023 7:34 PM EDT To:Angela Krishna 07/04/2023 7:33 PM Your fax has been successfully sent to Dr Wilkinson at [phone]. 07/04/2023 7:30:51 PM Transmission Record Sent to [phone] with remote ID "[id number]" Result: (0) Success Page record: 1 - 3 Elapsed time: 01:48 on channel 50 07/04/2023 7:29:28 PM Conversion Record Successfully created cover sheet. Type: application/vnd.openxmlformats-officedocument.wordprocessingml.document G3 to TIFF #1: Success [image/g3] (63ms) GhostScript TIFF #1: Success [image/tiff] (220ms) Resubmitted: [application/postscript] Word Automation #1: Success [image/tiff] (1411ms) (SHWP-[id number]:WORKSRV2) 07/04/2023 7:29:06 PM Conversion Record [RFPDA51.tmp.PRT] Type: application/postscript G3 to TIFF #1: Success [image/g3] (92ms) GhostScript TIFF #1: Success [image/tiff] (359ms) ([id number]:WORKSRV2) 07/04/2023 7:28:56 PM Origin Record Created by NIKKI * Telephone Encounter - Angela Krishna RN [...] be seen in ED, Patient agreeable to [facility] and will have her drive her. Patient understands care advice. No further needs at this time. Reason for Disposition [1] MODERATE difficulty breathing (e.g., speaks in phrases, SOB even at rest, pulse 100-120) AND [2] NEW-onset or WORSE than normal Protocols used: Breathing Jtywnxmdqr-QJCFB-RS documented in this [facility]04-22-2024 Telephone encounter Note* Telephone Encounter - [...] be seen in ED, Patient agreeable to [facility] and will have her drive her. Patient understands care advice. No further needs at this time. Reason for Disposition [1] MODERATE difficulty breathing (e.g., speaks in phrases, SOB even at rest, pulse 100-120) AND [2] NEW-onset or WORSE than normal Protocols used: Breathing Txlbntgavt-JSGCE-TW [facility] SystemZskmvi96-26-3871 Hospital Discharge instructions Additional Instructions Stop taking the clindamycin and start taking Augmentin instead. Follow-up with your dentist on Tuesday. Return to emergency room with any worsening symptoms or you have difficulty swallowing.[facility] Work Phone: 1(719) 946-609302-14-2022 NoteHNO ID: [id number] Author: Vandana Becerra MD Service: Hospital Medicine Author Type: Resident Type: Plan of Care Filed: 04/26/2021 10:10 PM Note Text: Patient states she has her son in a car accident and has to leave AMA. Patient understands the risks of leaving AMA including worsening shortness of breath, heart failure and . She still wants to leave AMA. Patient has capacity. Vandana Becerra MDTempleton Developmental CenterLvactkbc96-80-6012 NoteHNO ID: [id number] Author: Vandana Becerra MD Service: Hospital Medicine Author Type: Resident Type: Plan of Care Filed: 04/26/2021 8:00 PM Note Text: Chart reviewed. ACS unlikely. Will give one dose ibuprofen for the pleuritic chest pain (Has h/o abnormal uterine bleed, however had ablation; no history of GI bleed.) Vandana Becerra MDTempleton Developmental CenterMzhzmjwy66-23-9668 NoteHNO ID: [id number] Author: Aj Mullins MD Service: Hospital Medicine Author Type: Physician Type: Progress Notes Filed: 04/26/2021 3:41 PM Note Text: DEPARTMENT OF HOSPITAL MEDICINE PROGRESS NOTE SERVICE DATE: 04/26/2021 SERVICE TIME: 3:30 PM Hospital Medicine/Primary Attending: Aj Mullins MD NIGHT AND WEEKEND COVERAGE: DEXTER COVERAGE:TEAM 2: [phone], please call Team 2 pager [phone]. [phone], please call [facility] Night Coverage pager [phone]) for Teams 1, 2, AND 3 Subjective INTERVAL HPI: SOB improving , still complaining of chest pain . No fever or chills MEDICATIONS: Reviewed Objective PHYSICAL EXAM: BP 113/57 Pulse 72 Temp (Src) 97.7 (Oral) Resp 18 Ht 5' 4" (1.63m) Wt 120 lb (54.4kg) SpO2 98% [...] -- 04/25/21 0830 activity - mobilize patient (va,ct) VTE Prophylaxis: on AC Disposition: Home Plan of care discussed with: Patient, RN and Consultants: cardiology dr. Zaragoza and Francisco TROY SIGNATURE: Aj Mullins MD PATIENT NAME: Michelle Mitchell DATE: April 26, 2021 TIME: 3:30 PM etx [id number] Developmental CenterVhmcwydd55-14-3292 NoteHNO ID: [id number] Author: CHAKA Pedraza Tech Service: ? Author Type: Entry Rep Type: Procedures Filed: 04/25/2021 2:42 PM Note Text: [employer] pacer interrogation done on 04/25/2021 @ [address] [place] [address] notified to call for report.[facility] Developmental CenterAopzbjcv61-49-0299 Influenza virus A and B RNA and SARS-CoV-2 (COVID-19) N gene panel BIMAL+probe (Resp)COVID 19 RESULT: SARS-CoV-2 (Agent of COVID-19) Not Detected by PCR. INFLUENZA A PCR: Negative for Influenza A by RT-PCR INFLUENZA B PCR: Negative for Influenza B by RT-PCRNorthern Light Eastern Maine Medical CenterComment on above: Performed By: #### [id number] #### [facility] CLIA [id number] [address] [place] [address] DOVER STATES OF AMERICADischarge summary Author Willian Ovalles [facility] Note Date/Time July 24, 2024 8:43a m [facility] Medical Records Department [address] [place] [address] Discharge Summary 07/24/24 0839 MR#: [id number] Acct: [id number] Name: MICHELLE MITCHELL Rep #:[id number] : 1980 43 From: Willian Ovalles DO PCP: Dr. Dex Wilkinson MD Status:A DM IN Location: [facility] CTS494- [id number] Providers Date of Admission: 07/21/24 Primary Care Physician: Dr. Dex Wilkinson MD Consultations 07/21/24 00:48 Consult: Cardiology Routine Consulting Provider: [facility] Reason for Consult: AE CHF, Elevated Troponin and Near Syncope with Hypertrophic CM EMERGENT Consult: No MD Notified: Yes Date Notified: 07/21/24 Time Notified: 06:52 Method of Notification: Text Method of Consult:: In-Person 07/23/24 08:42 Consult: Gastroenterology Routine Consulting Provider: [facility] Reason for Consult: gastritis. clearance for possible MICKI. EMERGENT Consult: No Notified: Yes Date Notified: 07/23/24 Time Notified: [...] on following up with Dr. Aguilar at [facility], CTS at [facility] that specialized in cardiac transplantation. She [...] her sister. Patient has been accepted to [facility], awaiting on bed availablily. Medications at [...] heart transplant. So that is the reason [facility] was selected as a facility for [...] Provider: Willian Ovalles Primary Care Provider: Dex Wilkinson Consulting Providers: Filemon Subramanian; Chetan Grant; Saman Clay; Augustin Potts; Don Victoria; Jose Francisco Santamaria; Cleo Huerta; Mercy Bishop; Sarita Flores; Vincent Hdz; Cliff Car; Bogdan Bates NP; Xochitl Bourne; Grover Guerra; Sergio Umaña Discharge Orders/Prescriptions Prescriptions: [...] PO Q12H Referrals / Follow Up: Dex Wilkinson MD [Primary Care Provider] - Disposition Disposition (needs filled in before D/C Order can be placed): Acute Care Hospital Charges/Coding Visit Charges Inpatient E&M: 19208 Disch Hosp >30min 07/24/24 0843 <Electronically signed by Willian Ovalles DO> Cosigner Signature (if applicable): CC: Dr. Willian Ovalles DO; Dr. Dex Wilkinson MD~ Signed [facility] Work Phone: Discharge summary Author Gage Sharma [facility] Note Date/Time August 11, 2024 1:39p m [facility] Medical Records Department [address] [place] [address] Emergency Department Summary 08/11/24 MR#: [id number] Acct: [id number] Name: MICHELLE MITCHELL Angelo Rep #:[id number] : 1980 43 From: Gage rush DO PCP: Dr. Dex Wilkinson MD Status:R EG ER Location: ED HPI [...] intact Psych: Cooperative, appropriate mood and affect [facility] Medical History (Updated 08/11/24 @ 13:[address] 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 Cloudy Urine pH 7.0 Ur Specific Aldrich 1.010 Urine Protein 15 H Urine Glucose [...] Colonic diverticulosis without acute diverticulitis. Reading Location: [facility] Discharge Plan Triage Chief Complaint: Flank Pain [...] mg PO BID Primary Care Provider: Dex Wilkinson Referrals: Dex Wilkinson MD [Primary Care Provider] - Activity Restrictions/Additional Instructions: Follow-up with primary care physician. At this point no clear reason for your pain however suspect it was likely secondary to passed kidney stone. Return back to the ED if symptoms change or worsen. You received a Toradol here in theemergency department. No ibuprofen until 6 PM given you received Toradol. Print Language: Spanish Disposition Disposition: Home, Self Care What to do if you have Problems For any increased pain, shortness of breath, bleeding, nausea or vomiting, chestpain, or any unexpected problems, contact your Primary Care Provider. Call [facility] ([phone]) or report to the closest Emergency Room. Call 911 if necessary. 08/11/24 1339 <Electronically signed by Gage Sharma DO> Cosigner Signature (if applicable): CC: Dr. Dex Wilkinson MD ~ Signed [facility] Work Phone: Evaluation noteNo assessment information available [facility] Work Phone: Evaluation note* Diagnosis Pre-operative examination- [...] echocardiography (MICKI)- [facility] Pre-operative examination- Primary Preoperative examination, [...] examination, unspecified- [facility] Hypertrophic cardiomegaly- Primary Chronic heart failure with preserved ejection fraction (HFpEF) Cardiomyopathy, hypertrophic nonobstructive (Multi) Other primary cardiomyopathies History of pulmonary embolism Personal history of venous thrombosis and embolism Other ascites Atypical chest pain Other chest pain documented in this encounter [facility] Work Phone: Evaluation note* Diagnosis Heart failure, unspecified documented in this encounter [facility] Work Phone: Hospital course Narrative No data available for this section [facility] Discharge instructions Additional Instructions See your dentist as soon as possible.[facility] Work Phone: Hospital Discharge instructions Additional Instructions Return if feeling worse. Follow-up with your doctor if not improving. All your test tonight were unremarkable.[facility] Work Phone: Hospital Discharge instructions Additional Instructions Please follow-up with cardiology secondary to your hypertrophic obstructive cardiomyopathy and return to the ER should you have any [facility] Work Phone: Hospital Discharge instructions Additional Instructions You do have some pathology, you do have some ascites, a small right pleural effusion, you need to follow-up outpatient. Return here for worsening symptoms.[facility] Work Phone: Hospital Discharge instructions Additional Instructions Your CT scan showed inflammation of your ileum concerning for inflammatory bowel disease. Please follow-up with gastroenterology to discuss further evaluation of this. Take the prescribed medication as directed to help control symptoms and return to the ER should you have any further concernsW[facility] Work Phone: Hospital Discharge instructions Additional Instructions Follow-up with primary care physician. At this point no clear reason for your pain however suspect it was likely secondary to passed kidney stone. Return back to the ED if symptoms change or worsen. You received a Toradol here in the emergency department. No ibuprofen until 6 PM given you received Toradol.[facility] Work Phone: Reason for visit Narrative* Auth/Cert (Routine) Specialty Diagnoses / Procedures Referred By Contac t Referred To Contact HOSP INPATIENT Diagnoses Endocarditis Procedures na [id number] [address] [place] [address] Phone: tel: Referral ID Status Reason Start Date Expiration Date Visits Re quested Visits Authorized [id number] 1 1 [facility] for visit Narrative* Cardiovascular (Routine) - Authorized Specialty Diagnoses / Procedures Referred By Contac t Referred To Contact Diagnoses Heart failure, unspecified Procedures ECG 12 lead Radu Kay MD [address] [place] [address] Phone: tel: fax: Referral ID Status Reason Start Date Expiration Date V isits Requested Visits Authorized [id number] Authorized 08/23/2024 08/23/2025 1 1 [facility] Work Phone: Summary Purpose Family History No Family History Records Found Relationship Condition Age at Onset Recorded Date/T rosa father Cardiac disease Unknown mother Malignant neoplasm of breast Unknown Deep vein thrombosis (DVT) Unknown sister Hypertrophic obstructive cardiomyopathy U nknown Malignant neoplasm Unknown grandfather Cardiac disease Unknown grandmother Cerebrovascular accident (CVA) Unknown Advance Directives No Advanced Directives Records Found Date Activated Date Inactivated Comments 07/25/2024 10:11 [...] Will No November 02 10:05pm Power of Patient Advocate No November 02 10:05pm Advance Directive Response Recorded Date/ Time Living Will No November 13 4:21pm Power of Patient Advocate No November 13, 2021 4:21pm Advance Directive Response Recorded Date/ Time Living Will No December 16 10:45pm Power of Patient Advocate No December 16 10:45pm Advance Directive Response Recorded Date/ Time Living Will No March 09 9:21am Power of Patient Advocate No March 09, 2022 9:21am Advance Directive Response Recorded Date/ Time Living Will No December 25 9:27pm Power of Patient Advocate No December 25, 2022 9:27pm Advance Directive Response Recorded Date/ Time Living Will No July 04, 2023 8:21pm Power of Patient Advocate No July 03 8:21pm Advance Directive Response Recorded Date/ Time Living Will No October 31 11:40pm Do you have a Healthcare Power of Patient Advocate? No November 01, 2023 11:40pm Living Will No May 12, 2024 1:07am Do you have a Healthcare Power of Patient Advocate? No May 12, 2024 1:07am Living Will No July 01, 2024 8:41pm Do you have a Healthcare Power of Patient Advocate? No July 01, 2024 8:41pm Advance Directive Response Recorded Date/ Time Living Will No October 31 11:40pm Do you have a Healthcare Power of Patient Advocate? No November 01, 2023 11:40pm Living Will No May 12, 2024 1:07am Do you have a Healthcare Power of Patient Advocate? No May 12, 2024 1:07am Living Will No July 01, 2024 8:41pm Do you have a Healthcare Power of Patient Advocate? No July 01, 2024 8:41pm Do you have a Healthcare Power of Patient Advocate? No July 03, 2024 1:43pm Do you have a Healthcare Power of Patient Advocate? No July 10, 2024 11:58am Do you have a Healthcare Power of Patient Advocate? No July 20, 2024 7:24pm Advance Directive Response Recorded Date/ Time Living Will No October 31 11:40pm Do you have a Healthcare Power of Patient Advocate? No November 01, 2023 11:40pm Living Will No May 12, 2024 1:07am Do you have a Healthcare Power of Patient Advocate? No May 12, 2024 1:07am Living Will No July 01, 2024 8:41pm Do you have a Healthcare Power of Patient Advocate? No July 01, 2024 8:41pm Do you have a Healthcare Power of Patient Advocate? No July 03, 2024 1:43pm Do you have a Healthcare Power of Patient Advocate? No July 10, 2024 11:58am Do you have a Healthcare Power of Patient Advocate? No July 21, 2024 1:00am Date Activated [...] Do you have a Healthcare Power of Patient Advocate? No May 12, 2024 1:07am Living Will No July 01, 2024 8:41pm Do you have a Healthcare Power of Patient Advocate? No July 01, 2024 8:41pm Do you have a Healthcare Power of Patient Advocate? No July 03, 2024 1:43pm Do you have a Healthcare Power of Patient Advocate? No July 10, 2024 11:58am Do you have a Healthcare Power of Patient Advocate? No July 21, 2024 1:00am Advance Directive Response Recorded Date/ Time Living Will No May 12, 2024 1:07am Do you have a Healthcare Power of Patient Advocate? No May 12, 2024 1:07am Living Will No July 01, 2024 8:41pm Do you have a Healthcare Power of Patient Advocate? No July 01, 2024 8:41pm Do you have a Healthcare Power of Patient Advocate? No July 03, 2024 1:43pm Do you have a Healthcare Power of Patient Advocate? No July 10, 2024 11:58am Do you have a Healthcare Power of Patient Advocate? No July 21, 2024 1:00am Do you have a Healthcare Power of Patient Advocate? No August 11, 2024 10:27am Advance Directive Response Recorded Date/ Time Living Will No May 12, 2024 1:07am Do you have a Healthcare Power of Patient Advocate? No May 12, 2024 1:07am Living Will No July 01, 2024 8:41pm Do you have a Healthcare Power of Patient Advocate? No July 01, 2024 8:41pm Do you have a Healthcare Power of Patient Advocate? No July 03, 2024 1:43pm Do you have a Healthcare Power of Patient Advocate? No July 10, 2024 11:58am Do you have a Healthcare Power of Patient Advocate? No July 21, 2024 1:00am Do you have a Healthcare Power of Patient Advocate? No August 11, 2024 10:27am Do you have a Healthcare Power of Patient Advocate? No August 20, 2024 3:00pm Advance Directive Response Recorded Date/ Time Living Will No May 12, 2024 1:07am Do you have a Healthcare Power of Patient Advocate? No May 12, 2024 1:07am Living Will No July 01, 2024 8:41pm Do you have a Healthcare Power of Patient Advocate? No July 01, 2024 8:41pm Do you have a Healthcare Power of Patient Advocate? No July 03, 2024 1:43pm Do you have a Healthcare Power of Patient Advocate? No July 10, 2024 11:58am Do you have a Healthcare Power of Patient Advocate? No July 21, 2024 1:00am Do you have a Healthcare Power of Patient Advocate? No August 11, 2024 10:27am Do you have a Healthcare Power of Patient Advocate? No August 20, 2024 6:53pm Chief Complaint and Reason for Visit Chief [...] AE CHF, NEAR SYNCOPE, ELEVATED TROPONIN, ELEVATED May 12th, 2025 7:49am AE CHF, NEAR SYNCOPE, ELEVATED TROPONIN, [...] PAIN W/ WORSENING LFT'S August 20 5:47pm Chief Complaint Admit Date DIZZINESS, NAUSEA, WOUND [...] PAIN W/ WORSENING LFT'S August 20 5:47pm RUQ PAIN W/ WORSENING LFT'S August 21, 025 5:18pm RUQ PAIN W/ WORSENING LFT'S August 21, 025 5:24pm RUQ PAIN W/ WORSENING LFT'S August 22, 025 12:11pm RUQ PAIN W/ WORSENING LFT'S August 23 025 5:25pm RUQ PAIN W/ WORSENING LFT'S August 23, 025 8:04pm Reason for Visit Admit Date Abdominal pain [...] Pulmonary hypertension August 08, 2024 8: 24am Abdominal pain August 20, 2024 5:47p m Dilated pancreatic duct August 20, 2024 5 :47pm Elevated liver enzymes August 20, 2024 5: 47pm GERD (gastroesophageal reflux disease) J une 2024 5:47pm Chief Complaint Admit Date DIZZINESS, NAUSEA, WOUND [...] PAIN W/ WORSENING LFT'S August 20 5:47pm RUQ PAIN W/ WORSENING LFT'S August 20 7:13pm RUQ PAIN W/ WORSENING LFT'S August 21, 025 5:18pm RUQ PAIN W/ WORSENING LFT'S August 21, 2 025 5:24pm RUQ PAIN W/ WORSENING LFT'S August 22, 2 025 12:11pm RUQ PAIN W/ WORSENING LFT'S August 23, 2 025 5:25pm RUQ PAIN W/ WORSENING LFT'S August 23, 2 025 8:04pm RUQ PAIN W/ WORSENING LFT'S August 24, 2 025 1:12pm ABD PAIN August 27, 2024 11:0 0am ABD PAIN August 28, 2024 11:5 1am Reason for Visit Admit Date Abdominal pain [...] (gastroesophageal reflux disease) M ay 2024 9:45am Hemorrhagic gastritis July 21, 2024 12: 26am HFrEF (heart failure with reduced ejecti on fraction) July 21, 2024 12:26am Pulmonary hypertension July 21, 2024 12 :26am Vegetation of heart valve July 21, 2024 12:26am Elevated troponin July 21, 2024 12:26 am Nausea & vomiting July 21, 2024 12:26 am Abdominal pain July 21, 2024 12:26 am [...] failure of unknown etiology July 212024 12:26am Diarrhea August 08, 2024 8:24a m Pulmonary hypertension August 08, 2024 8: 24am Abdominal pain August 08, 2024 8:24a m GERD (gastroesophageal reflux disease) M ay 2024 8:24am Elevated liver enzymes August 20, 2024 5: 47pm Abdominal pain August 20, 2024 5:47p m Dilated pancreatic duct August 20, 2024 5 :47pm GERD (gastroesophageal reflux disease) J une 2024 5:47pm Additional Source Comments INFORMATION SOURCE (unrecogn ized section and content) DATE CREATED AUTHOR 08/27/2017 [facility] DATE CREATED AUTHOR AUTHOR'S ORGANIZ ATION 08/29/2017 [facility] DATE CREATED AUTHOR AUTHOR'S ORGANIZ ATION 03/22/2020 [employer] DATE CREATED AUTHOR AUTHOR'S ORGANIZ ATION 03/23/2020 [facility] DATE CREATED AUTHOR AUTHOR'S ORGANIZ ATION 04/17/2020 [facility] DATE CREATED AUTHOR AUTHOR'S ORGANIZ ATION 11/04/2020 [facility] DATE CREATED AUTHOR AUTHOR'S ORGANIZ ATION 04/28/2021 [facility] DATE CREATED AUTHOR AUTHOR'S ORGANIZ ATION 11/12/2023 [facility] DATE CREATED AUTHOR AUTHOR'S ORGANIZ ATION 01/07/2024 [facility] DATE CREATED AUTHOR AUTHOR'S ORGANIZ ATION 07/16/2024 [facility] DATE CREATED AUTHOR AUTHOR'S ORGANIZ ATION 08/12/2024 [facility] DATE CREATED AUTHOR AUTHOR'S ORGANIZ ATION 08/26/2024 [facility] DATE CREATED AUTHOR AUTHOR'S ORGANIZ ATION 08/27/2024 [facility] DATE CREATED AUTHOR AUTHOR'S ORGANIZ ATION 08/29/2024 [facility] DATE CREATED AUTHOR AUTHOR'S ORGANIZ ATION 09/11/2024 [facility] Goals (unrecognized section and content) Goals may [...] Active Member Role Status Dates Dr. Dex Wilkinson MD Primary Care Provider Active Team Status: Inactive Member Role Status Dates Dr. Dex Wilkinson MD Primary Care Provider Active Dr. Babar Wood DO Referring Provider, Emergency Pr ovider Active Team Status: Inactive Member Role Status Dates Dr. Dex Wilkinson MD Primary Care Provider Active Rubin Briggs MD Emergency Provider Active Voice Network Administrator Relationship Specialty Start Date End Date Dex Wilkinson MD [address] [facility] [address] [place] [address] PCP - General Family Medicine 07/01/24 Team Status: Inactive Member Role Status Dates Dr. Dex Wilkinson MD Primary Care Provider Active Start: March 28, 2024 End: March 28, 2024 Dr. Jose Francisco Santamaria MD Attending Provider Active S tart: March 28, 2024 End: March 28, 2024 Team Status: Inactive Member Role Status Dates Dr. Dex Wilkinson MD Primary Care Provider Active Start: March 28, 2024 End: March 28, 2024 Dr. eDx Wilkinson MD Referring Provider Active Start: March 28, 2024 End: March 28, 2024 Dr. Jose Francisco Santamaria MD Attending Provider Active S tart: March 28, 2024 End: March 28, 2024 Team Status: Inactive Member Role Status Dates Dr. Dex Wilkinson MD Primary Care Provider Active Start: May 11, 2024 End: May 12, 2024 Dr. Bimal Cortez MD Attending Provider Active Start: May 11, 2024 End: May 12, 2024 Dr. Bimal Cortez MD Emergency Provider Active Start: May 11, 2024 End: May 12, 2024 Team Status: Inactive Member Role Status Dates Dr. Dex Wilkinson MD Primary Care Provider Active Start: July 01, 2024 End: July 01, 2024 Dr. Babar Wood DO Emergency Provider Active Start: July 01, 2024 End: July 01, 2024 Team Status: Inactive Member Role Status Dates Dr. Dex Wilkinson MD Primary Care Provider Active Start: July 01, 2024 End: July 01, 2024 Dr. Babar Wood DO Attending Provider Active Start: July 01, 2024 End: July 01, 2024 Dr. Babar Wood DO Emergency Provider Active Start: July 01, 2024 End: July 01, 2024 Team Status: Inactive Member Role Status Dates Dr. Dex Wilkinson MD Primary Care Provider Active Start: July 03, 2024 End: July 03, 2024 Dr. Dex Wilkinson MD Referring Provider Active Start: July 03, 2024 End: July 03, 2024 MARCIO Camp Attending Provider Active Start: July 03, 2024 End: July 03, 2024 Team Status: Inactive Member Role Status Dates Dr. Dex Wilkinson MD Primary Care Provider Active Start: July 03, 2024 End: July 03, 2024 Dr. Nabor Frey DO Attending Provider Active Start: July 03, 2024 End: July 03, 2024 Dr. Nabor Frey DO Emergency Provider Active Start: July 03, 2024 End: July 03, 2024 Team Status: Inactive Member Role Status Dates Dr. Dex Wilkinson MD Primary Care Provider Active Start: July 04, 2024 End: July 04, 2024 Dr. Jose Francisco Santamaria MD Attending Provider Active S tart: July 04, 2024 End: July 04, 2024 Team Status: Inactive Member Role Status Dates Dr. Dex Wilkinson MD Primary Care Provider Active Start: July 04, 2024 End: July 04, 2024 Dr. Dex Wilkinson MD Referring Provider Active Start: July 04, 2024 End: July 04, 2024 Dr. Jose Francisco Santamaria MD Attending Provider Active S tart: July 04, 2024 End: July 04, 2024 Team Status: Inactive Member Role Status Dates Dr. Dex Wilkinson MD Primary Care Provider Active Start: July 10, 2024 End: July 10, 2024 Dr. Dex Wilkinson MD Referring Provider Active Start: July 10, 2024 End: July 10, 2024 Xochitl Bourne PA, PA Attending Provider Active Start: July 10, 2024 End: July 10, 2024 Team Status: Inactive Member Role Status Dates Dr. Dex Wilkinson MD Primary Care Provider Active Start: July 12, 2024 End: July 12, 2024 Dr. Dex Wilkinson MD Referring Provider Active Start: July 12, 2024 End: July 12, 2024 Dr. Quang Myles DO Attending Provider Active Start: July 12, 2024 End: July 12, 2024 Team Status: Active Member Role Status Dates Dr. Dex Wilkinson MD Primary Care Provider Active Start: July 12, 2024 Dr. Dex Wilkinson MD Referring Provider Active Start: July 12, 2024 Dr. Quang Myles DO Attending Provider Active Start: July 12, 2024 Dr. Quang Myles DO Other Provider Active St art: July 12, 2024 Team Status: Active Member Role Status Dates Dr. Dex Wilkinson MD Primary Care Provider Active Start: July 20, 2024 Dr. Carlos Nair DO Emergency Provider Active Start: July 20, 2024 Dr. Sergio Umaña , Admit Provider Active Start: July 20, 2024 Dr. Sergio Umaña DO Attending Provider Active Start: July 20, 2024 Team Status: Inactive Member Role Status Dates Dr. Dex Wilkinson MD Primary Care Provider Active Start: July [...] 2024 End: July 24, 2024 Bogdan Bates OPHTHALMIC TECHNICIAN APPRENTICE, OPHTHALMIC TECHNICIAN APPRENTICE-C Other Provider Active Start : July 21, 2024 End: July 24, 2024 Xochitl Bourne PA, PA Other Provider Active Start: July 21, 2024 End: July 24, 2024 MARCIO Lemus Other Provider Active Start: July 21, 2024 End: July 24, 2024 Dr. Willian Ovalles DO Attending Provider Active Start: July 21, 2024 End: July 24, 2024 Team Status: Active Member Role Status Dates Dr. Dex Wilkinosn MD Primary Care Provider Active Start: July [...] Active Start: July 21, 2024 Bogdan Bates OPHTHALMIC TECHNICIAN APPRENTICE, OPHTHALMIC TECHNICIAN APPRENTICE-C Other Provider Active Start : July 21, 2024 Xochitl Bourne PA, PA Other Provider Active Start: July 21, 2024 MARCIO Lemus Other Provider Active Start: July 21, 2024 Dr. Willian Ovalles DO Attending Provider Active Start: July 21, 2024 Dr. Willian Ovalles DO Other Provider Active Star t: July 21, 2024 Team Status: Active Member Role Status Dates Dr. Dex Wilkinson MD Primary Care Provider Active Start: July 21, 2024 Dr. Carlos Nair , DO Emergency Provider Active Start: July 21, 2024 Dr. Sergio Umaña , DO Admit Provider Active Start: July 21, 2024 Dr. Sergio Umaña , DO Other Provider Active Start: July 21, [...] Active Start: July 21, 2024 Bogdan Bates OPHTHALMIC TECHNICIAN APPRENTICE, OPHTHALMIC TECHNICIAN APPRENTICE-C Other Provider Active Start : July 21, 2024 Xochitl Bourne PA, PA Other Provider Active Start: July 21, 2024 MARCIO Lemus Other Provider Active Start: July 21, 2024 Dr. Willian Ovalles , Other Provider Active Star t: July 21, 2024 Team Status: Active Member Role Status Dates Dr. Dex Wilkinson MD Primary Care Provider Active Start: July 22, 2024 Dr. Carlos Nair , DO Emergency Provider Active Start: July 22, 2024 Dr. Sergio Umaña , DO Admit Provider Active Start: July 22, 2024 Dr. Sergio Umaña , DO Other Provider Active Start: July 22, [...] Active Start: July 22, 2024 Bogdan Bates OPHTHALMIC TECHNICIAN APPRENTICE, OPHTHALMIC TECHNICIAN APPRENTICE-C Other Provider Active Start : July 22, 2024 Xochitl Bourne PA, PA Other Provider Active Start: July 22, 2024 MARCIO Lemus Other Provider Active Start: July 22, 2024 Dr. Willian Ovalles , Attending Provider Active Start: July 22, 2024 Dr. Willian Ovalles , DO Other Provider Active Star t: July 22, 2024 Team Status: Active Member Role Status Dates Dr. Dex Wilkinson MD Primary Care Provider Active Start: July 22, 2024 Dr. Carlos Nair , Emergency Provider Active Start: July 22, 2024 Dr. Sergio Umaña , DO Admit Provider Active Start: July 22, 2024 Dr. Sergio Umaña , DO Other Provider Active Start: July 22, 2024 Dr. Filemon Subramanian MD Other Provider Active Start: July 22, 2024 Dr. Chetan Grant MD Other Provider Active St art: July 22, 2024 Dr. Saman Clay MD Attending Provider Active Start: July 22, 2024 Dr. Saman Clay MD [...] Active Start: July 22, 2024 Bogdan Bates OPHTHALMIC TECHNICIAN APPRENTICE, OPHTHALMIC TECHNICIAN APPRENTICE-C Other Provider Active Start : July 22, 2024 Xochitl Bourne PA, PA Other Provider Active Start: July 22, 2024 MARCIO Lemus Other Provider Active Start: July 22, 2024 Dr. Willian Ovalles , DO Other Provider Active Star t: July 22, 2024 Team Status: Active Member Role Status Dates Dr. Dex Wilkinson MD Primary Care Provider Active Start: July 23, 2024 Dr. Carlos Nair , Emergency Provider Active Start: July 23, 2024 Dr. Sergio Umaña , Admit Provider Active Start: July 23, 2024 Dr. Sergio Umaña , Other Provider Active Start: July 23, 2024 [...] Active Start: July 23, 2024 Bogdan Bates OPHTHALMIC TECHNICIAN APPRENTICE, OPHTHALMIC TECHNICIAN APPRENTICE-C Other Provider Active Start : July 23, 2024 Xochitl Bourne PA, PA Other Provider Active Start: July 23, 2024 MARCIO Lemus Other Provider Active Start: July 23, 2024 Dr. Willian Ovalles DO Attending Provider Active Start: July 23, 2024 Dr. Willian Ovalles DO Other Provider Active Star t: July 23, 2024 Team Status: Active Member Role Status Dates Dr. Dex Wilkinson MD Primary Care Provider Active Start: July 23, 2024 Dr. Willian Colón MD Attending Provider Active S tart: July 23, 2024 Team Status: Active Member Role Status Dates Dr. Dex Wilkinson MD Primary Care Provider Active Start: July 23, 2024 Dr. Carlos Nair DO Emergency Provider Active Start: July 23, 2024 Dr. Sergio Umaña DO Admit Provider Active Start: July 23, 2024 Dr. Serigo Umaña DO Other Provider Active Start: July 23, [...] Active Start: July 23, 2024 Bogdan Bates OPHTHALMIC TECHNICIAN APPRENTICE, OPHTHALMIC TECHNICIAN APPRENTICE-C Other Provider Active Start : July 23, 2024 Xochitl Bourne PA, PA Other Provider Active Start: July 23, 2024 MARCIO Lemus Other Provider Active Start: July 23, 2024 Dr. Willian Ovalles , Other Provider Active Star t: July 23, 2024 Team Status: Active Member Role Status Dates Dr. Dex Wilkinson MD Primary Care Provider Active Start: July 24, 2024 Dr. Carlos Nair , Emergency Provider Active Start: July 24, 2024 Dr. Sergio Umaña DO Admit Provider Active Start: July 24, 2024 Dr. Sergio Umaña , Other Provider Active Start: July 24, 2024 Dr. Filemon Subramanian MD Other Provider Active Start: July 24, 2024 Dr. Chetan Grant MD Other Provider Active St art: July 24, 2024 Dr. Saman Clay MD Other Provider Active Star t: July 24, 2024 Dr. Augustin Potts MD Other Provider Active Sta rt: July 24, 2024 Dr. Don Victoria MD [...] Active Start: July 24, 2024 Bogdan Bates OPHTHALMIC TECHNICIAN APPRENTICE, OPHTHALMIC TECHNICIAN APPRENTICE-C Other Provider Active Start : July 24, 2024 Xochitl BUCKLEY, PA Other Provider Active Start: July 24, 2024 MARCIO Lemus Other Provider Active Start: July 24, 2024 Dr. Willian Ovalles DO Attending Provider Active Start: July 24, 2024 Dr. Willian Ovalles DO Other Provider Active Star t: July 24, 2024 Voice Network Administrator Relationship Specialty Start Date End Date Dex Wilkinson MD [address] [place] [address] PCP - General 10/19/06 Asuncion Cheung, plastic tile setter Coordinator 05/14/14 Voice Network Administrator Relationship Specialty Start Date End Date Dex Wilkinson MD [address] [id number] PCP - General 10/19/06 Asuncion Cheung, plastic tile setter Coordinator 05/14/14 Voice Network Administrator Relationship Specialty Start Date End Date Dex Wilkinson MD [address] [address] PCP - General 10/19/06 Asuncion Cheung, plastic tile setter Coordinator 05/14/14 Team Status: Active Member Role Status Dates Dr. Dex Wilkinson MD Primary Care Provider Active Start: July 23, 2024 Dr. Willian Colón MD Attending Provider Active S tart: July 23, 2024 Dr. Sergio Umaña DO Referring Provider Active Start: July 23, 2024 Team Status: Inactive Member Role Status Dates Dr. Dex Wilkinson MD Primary Care Provider Active Start: August 08, 2024 End: August 08, 2024 Dr. Dex Wilkinson MD Referring Provider Active Start: August 08, 2024 End: August 08, 2024 Dr. Quang Myles DO Attending Provider Active Start: August 08, 2024 End: August 08, 2024 Voice Network Administrator Relationship Specialty Start Date End Date Dex Wilkinson MD [address] [place] [id number] PCP - General Family Medicine 07/01/24 Team Status: Active Member Role Status Dates Dr. Dex Wilkinson MD Primary Care Provider Active Start: August 08, 2024 Dr. Quang Myles DO Attending Provider Active Start: August 08, 2024 Dr. Quang Myles DO Referring Provider Active Start: August 08, 2024 Team Status: Active Member Role Status Dates Dr. Dex Wilkinson MD Primary Care Provider Active Start: August 09, 2024 Dr. Quang Myles DO Attending Provider Active Start: August 09, 2024 Dr. Quang Myles DO Referring Provider Active Start: August 09, 2024 Team Status: Inactive Member Role Status Dates Dr. Dex Wilkinson MD Primary Care Provider Active Start: August 11, 2024 End: August 11, 2024 Dr. Gage Sharma , DO Emergency Provider Activ e Start: August 11, 2024 End: August 11, 2024 Team Status: Inactive Member Role Status Dates Dr. Dex Wilkinson MD Primary Care Provider Active Start: August 08, 2024 End: August 08, 2024 Dr. Quang Myles DO Attending Provider Active Start: August 08, 2024 End: August 08, 2024 Dr. Quang Myles DO Referring Provider Active Start: August 08, 2024 End: August 08, 2024 Voice Network Administrator Relationship Specialty Start Date End Date Dex Wilkinson MD [facility] [phone] PCP - General Family Medicine 08/15/24 Team Status: Inactive Member Role Status Dates Dr. Dex Wilkinson MD Primary Care Provider Active Start: August 09, 2024 End: August 09, 2024 Dr. Quang Myles DO Attending Provider Active Start: August 09, 2024 End: August 09, 2024 Dr. Quang Myles DO Referring Provider Active Start: August 09, 2024 End: August 09, 2024 Team Status: Inactive Member Role Status Dates Dr. Dex Wilkinson MD Primary Care Provider Active Start: August 11, 2024 End: August 11, 2024 Dr. Gage Sharma DO Attending Provider Activ e Start: August 11, 2024 End: August 11, 2024 Dr. Gage Sharma , DO Emergency Provider Activ e Start: August 11, 2024 End: August 11, 2024 Team Status: Active Member Role Status Dates Dr. Dex Wilkinson MD Primary Care Provider Active Start: August 20, 2024 Dr. Simona Fernandez DO Emergency Provider Active Start: August 20, 2024 Dr. Lopez Larios DO Admit Provider Active Start: August 20, 2024 Dr. Lopez Larios DO Attending Provider Active Start: August 20, 2024 Voice Network Administrator Relationship Specialty Start Date End Date Dex Wilkinson MD [address] [place], [place] [phone] PCP - General Family Medicine 08/15/24 Team Status: Inactive Member Role Status Dates Dr. Dex Wilkinson MD Primary Care Provider Active Start: August 20, 2024 End: August 24, 2024 Dr. Simona Fernandez DO Emergency Provider Active Start: August 20, 2024 End: August 24, 2024 Dr. Lopez Larios DO Admit Provider Active Start: August 20, 2024 End: August 24, 2024 Dr. Lopez Larios DO Other Provider Active Start: August 20, 2024 End: August 24, 2024 Dr. Taylor Tejeda MD Attending Provider Active Start: August 20, 2024 End: August 24, 2024 Team Status: Active Member Role Status Dates Dr. Dex Wilkinson MD Primary Care Provider Active Start: August 21, 2024 Dr. Simona Fernandez DO Emergency Provider Active Start: August 21, 2024 Dr. Lopez Larios DO Admit Provider Active Start: August 21, 2024 Dr. Lopez Larios DO Other Provider Active Start: August 21, 2024 Dr. Taylor Tejeda MD Attending Provider Active Start: August 21, 2024 Dr. Taylor Tejeda MD Other Provider Active St art: August 21, 2024 Team Status: Active Member Role Status Dates Dr. Dex Wilkinson MD Primary Care Provider Active Start: August 21, 2024 Dr. Simona Fernandez DO Emergency Provider Active Start: August 21, 2024 Dr. Lopez Larios DO Admit Provider Active Start: August 21, 2024 Dr. Lopez Larios DO Other Provider Active Start: August 21, 2024 Dr. Taylor Tejeda MD Other Provider Active St art: August 21, 2024 Dr. Quang Myles DO Attending Provider Active Start: August 21, 2024 Team Status: Active Member Role Status Dates Dr. Dex Wilkinson MD Primary Care Provider Active Start: August 22, 2024 Dr. Simona Fernandez DO Emergency Provider Active Start: August 22, 2024 Dr. Lopez Larios DO Admit Provider Active Start: August 22, 2024 Dr. Lopez Larios DO Other Provider Active Start: August 22, 2024 Dr. Taylor Tejeda MD Attending Provider Active Start: August 22, 2024 Dr. Taylor Tejeda MD Other Provider Active St art: August 22, 2024 Team Status: Active Member Role Status Dates Dr. Dex Wilkinson MD Primary Care Provider Active Start: August 23, 2024 Dr. Simona Fernandez DO Emergency Provider Active Start: August 23, 2024 Dr. Lopez Lraios DO Admit Provider Active Start: August 23, 2024 Dr. Lopez Larios DO Other Provider Active Start: August 23, 2024 Dr. Taylor Tejeda MD Attending Provider Active Start: August 23, 2024 Dr. Taylor Tejeda MD Other Provider Active St art: August 23, 2024 Team Status: Active Member Role Status Dates Dr. Dex Wilkinson MD Primary Care Provider Active Start: August 23, 2024 Dr. Simona Fernandez DO Emergency Provider Active Start: August 23, 2024 Dr. Lopez Larios DO Admit Provider Active Start: August 23, 2024 Dr. Lopez Larios DO Other Provider Active Start: August 23, 2024 Dr. Taylor Tejeda MD Other Provider Active St art: August 23, 2024 Dr. Quang Myles DO Attending Provider Active Start: August 23, 2024 Team Status: Active Member Role Status Dates Dr. Dex Wilkinson MD Primary Care Provider Active Start: August 20, 2024 Dr. Simona Fernandez DO Emergency Provider Active Start: August 20, 2024 Dr. Lopez Larios DO Admit Provider Active Start: August 20, 2024 Dr. Lopez Larios DO Other Provider Active Start: August 20, 2024 Dr. Taylor Tejeda MD Other Provider Active St art: August 20, 2024 Dr. Quang Myles DO Attending Provider Active Start: August 20, 2024 Team Status: Active Member Role Status Dates Dr. Dex Wilkinson MD Primary Care Provider Active Start: August 24, 2024 Dr. Simona Fernandez DO Emergency Provider Active Start: August 24, 2024 Dr. Lopez Larios DO Admit Provider Active Start: August 24, 2024 Dr. Lopez Larios DO Other Provider Active Start: August 24, 2024 Dr. Taylor Tejeda MD Attending Provider Active Start: August 24, 2024 Dr. Taylor Tejeda MD Other Provider Active St art: August 24, 2024 Team Status: Inactive Member Role Status Dates Dr. Dex Wilkinson MD Primary Care Provider Active Start: August 27, 2024 End: August 27, 2024 Dr. Quang Myles DO Attending Provider Active Start: August 27, 2024 End: August 27, 2024 Dr. Quang Myles DO Referring Provider Active Start: August 27, 2024 End: August 27, 2024 Team Status: Active Member Role Status Dates Dr. Dex Wilkinson MD Primary Care Provider Active Start: August 28, 2024 Dr. Quang Myles DO Attending Provider Active Start: August 28, 2024 Dr. Quang Myles DO Referring Provider Active Start: August 28, 2024 Team Status: Active Member Role Status Dates Dr. Dex Wilkinson MD Primary Care Provider Active Start: August 20, 2024 Dr. Simona Fernandez DO Emergency Provider Active Start: August 20, 2024 Dr. Lopez Larios DO Admit Provider Active Start: August 20, 2024 Dr. Lopez Larios DO Other Provider Active Start: August 20, 2024 Dr. Taylro Tejeda MD Referring Provider Active Start: August 20, 2024 Dr. Taylor Tejeda MD Other Provider Active St art: August 20, 2024 Dr. Quang Myles DO Attending Provider Active Start: August 20, 2024 Team Status: Active Member Role Status Dates Dr. Dex Wilkinson MD Primary Care Provider Active Start: August 21, 2024 Dr. Simona Fernandez DO Emergency Provider Active Start: August 21, 2024 Dr. Lopez Larios DO Admit Provider Active Start: August 21, 2024 Dr. Lopez Larios DO Other Provider Active Start: August 21, 2024 Dr. Taylor Tejeda MD Referring Provider Active Start: August 21, 2024 Dr. Taylor Tejeda MD Other Provider Active St art: August 21, 2024 Dr. Quang Myles DO Attending Provider Active Start: August 21, 2024 Team Status: Inactive Member Role Status Dates Dr. Dex Wilkinson MD Primary Care Provider Active Start: August 28, 2024 End: August 28, 2024 Dr. Quang Myles DO Attending Provider Active Start: August 28, 2024 End: August 28, 2024 Dr. Quang Myles DO Referring Provider Active Start: August 28, 2024 End: August 28, 2024 Reason for Visit (unrecogniz ed section and content) Reason Onset Date Comments Shortness of Breath 07/04/2023 Reason Onset Date Comments Abdominal Pain 07/01/2024 Reason Comments Spirometry Specialty Diagnoses / Procedures Referred By [facility] t Referred To Contact HOSP INPATIENT Diagnoses Endocarditis Procedures [id number] [place] [address] Phone: tel: Referral ID Status Reason Start Date Expiration Date Visits Re quested Visits Authorized [id number] 1 Reason Onset Date Comments Transition [...] or prosecute any alcohol or drug abuse patient.[facility] the event this information is protected by the Federal Confidentiality of Alcohol and Drug Abuse Patient Records regulations: The Federal rules restrict any use of the information to criminally investigate or prosecute any alcohol or drug abuse patient.[facility] the event this information is protected by the Federal Confidentiality of Alcohol and Drug Abuse Patient Records regulations: The Federal rules restrict any use of the information to criminally investigate or prosecute any alcohol or drug abuse patient.[facility] Center[facility] the event this information is protected by the Federal Confidentiality of Alcohol and Drug Abuse Patient Records regulations: The Federal rules restrict any use of the information to criminally investigate or prosecute any alcohol or drug abuse patient.[facility] FOR RECORDS PERTAINING TO PATIENTS WHO ARE [...] BE BASED ON THE PRIMARY CLINICAL RECORDS. [facility] [employer] [facility] provides no warranty or guarantee of the accuracy or completeness of information in this document.
[2024-09-12] VITALS (8 sets, daily range): BP systolic 123–140; BP diastolic 83–105; PULSE 67–80; RESP 16–20; TEMP 35.8–36.6; O2SAT 96–100; BMI 21.7
--- OUTSIDE RECORDS SUMMARY | 2024-09-12 00:42 | XMS RPT_ITS | CCD ---
Demographics Address [address] [place] [address] Mobile Phone Preferred Language en Marital Status Oriental Orthodox Affiliation Unknown Race White Ethnic Group Not or Lati no Author Organization [facility] Care Team Providers Care Craft Demonstrator Name Role Phone TABBAA, MOUSAB Unavailable Unavailable TABBAA, MOUSAB Unavailable Unavailable Unavailable Primary Care Provider Tam WILKINSON MD, DR DEX Dunbar Primary Care Physician DIANA CINTRON, DR FUNEZ Attending Tam WILKINSON MD, DR DEX Dunbar Primary Care UnavaeDx Couch MD Primary Care Provider Dr. Dex Wilkinson MD Primary Care Provider Rosalio CINTRON, Dr. Felton Attending Provider Dr. Dex Wilkinson MD Referring Provider Dr. Bimal Cortez MD Attending Provider Dr. Bimal Cortez MD Emergency Provider Dr. Babar Wood DO Emergency Provider PROVIDER, UNKNOWN Primary Care Unavailable MARVA DAMON [...] Deanna CINTRON, Dr. Gallo Other Provider Dr. Mercy Bishop MD Other Provider Sandra CINTRON, Dr. Stein Other Provider Wilder CINTRON, Dr. Kaur Other Provider Josep CINTRON, Dr. Coronado Other Provider Jana NETSUITE DEVELOPER-C, Bogdan Pope Other Provider Xochitl Cole Other Provider Grover Alexis Other Provider Dr. Willian Ovalles DO Attending Provider Dr. Willian Ovalles DO Other Provider Obed CINTRON, Dr. Davison Attending Provider Dr. Willian Colón MD Attending Provider Dario CINTRON, Dr. Elias Attending Provider Dex Wilkinson MD Primary Care Provider Skye RN, Asuncion Unavailable Unavailable Jaja CINTRON, Dr. Kowalski Primary Care Provider Dr. Dex Wilkinson MD Referring Provider Dr. Jose Francisco Santamaria MD Attending Provider Umaña DO, Dr. Beauchamp Referring Provider Unav lori Wilkinson MD, Dr. Kowalski Primary Care Provider Dana CINTRON, Dr. Wallis Attending Provider Dana CINTRON, Dr. Wallis Emergency Provider Andabdirashid HAMLIN, Dr. Eckert Attending Provider Israel HAMLIN, Dr. Eckert Emergency Provider Jaja CINTRON, Dr. Kowalski Referring Provider Bárbara Mendez Attending Provider Tk HAMLIN, Dr. Tomlin Attending Provider Tk HAMLIN, Dr. Tomlin Emergency Provider Rosalio CINTRON, Dr. Felton Attending Provider Xochitl Cole Attending Provider Greg [...] Josep CINTRON, Dr. Coronado Other Provider Jana NETSUITE DEVELOPER-C, Bogdan Pope Other Provider Xochitl Cole Other Provider Grover Alexis Other Provider Josr HAMLIN, Dr. Dorsey Attending Provider Josr HAMLIN, Dr. Dorsey Other Provider Obed CINTRON, Dr. Davison Attending Provider Eldon CINTRON, Dr. Dorsey Attending Provider Dr. Sergio Umaña DO Referring Provider Elvirav lori Bishop MD, Dr. Elias Attending Provider Greg HAMLIN, Dr. Del Rio Referring Provider Dr. Gage Sharma DO Emergency Provider Dex Wilkinson MD Primary Care Provider Edith HAMLIN, Dr. Almonte Attending Provider Dr. Simona Fernandez DO Emergency Provider Ric HAMLIN, Dr. Marroquin Admit Provider [phone] Dr. Lopez Larios DO Attending Provider Dr. Cleo Huerta MD Other Provider Dr. Lopez Larios DO Other Provider Ileana CINTRON, Dr. Taylor Roque Attending Provider Ileana CINTRON, Dr. Taylor Roque Other Provider [facility] Referring Unavail able DEX WILKINSON Primary Care Unavailable CASE FONSECA Attending Unavailable CASE FONSECA Admitting Unavailable RADU KAY Attending Unavailable DEX WILKINSON Primary Care Unavailable RADU KAY Referring Unavailable WILKINSON, DEX B Primary Care Unavailable Ileana CINTRON, Dr. Taylor Roque Other Provider Dr. Taylor Tejeda MD Referring Provider Wilkinson, Dex Referring Unavailable Friend, Quang Attending Unavailable Wilkinson, Dex Primary Care Unavailable Nabor Frey Attending Unavailable Wilkinson, Dex Primary Care Unavailable Babar Wood Attending Unavailable Wilkinson, Dex Primary Care Unavailable Mercy Bishop Attending Unavailable Mercy Bishop Referring Unavailable Wilkinson, Dex Primary Care Unavailable Sergoi Umaña Admitting Unavailable Amro, Ahmed Consulting Unavailable Obed, Saman Attending Unavailable Wilkinson, Dex Primary Care Unavailable Mostafa, Chetan Consulting Unavailable Obed, Saman Consulting Unavailable Augustin Potts Consulting Unavailable Don Victoria Consulting Unavailable Rosalio, Jose Francisco Consulting Unavailable Cleo Huerta Consulting Unavailable Mercy Bishop Consulting Unavailable Jim Floresapradeivonne Consulting Unavailfanta e Satti, Vincent Consulting Unavailable Cliff Car Consulting Unavailable Jana [...] Unavailable Wilkinson, Dex Primary Care Unavailable Rosalio, Burt Attending Unavailable Wilkinson, Dex Primary Care Unavailable Wilkinson, Dex Referring Unavailable Bárbara Ureña Attending Unavailable Wilkinson, Dex Primary Care Unavailable Wilkinson, Dex Referring Unavailable Rosalio, Jose Francisco Attending Unavailable Wilkinson, Dex Primary Care Unavailable Rosalio, Jose Francisco Attending Unavailable Wilkinson, Dex Primary Care Unavailable Rosalio, Jose Francisco Attending Unavailable Wilkinson, Dxe Primary Care Unavailable Willian Ovalles Attending Unavailable Xochitl Cole Attending Unavail able Wilkinson, Dex Referring Unavailable Wilkinson, Dex Primary Care Unavailable Wilkinson, Dex Referring Unavailable Jose Francisco Santamaria Attending Unavailable Wilkinson, Dex Primary Care Unavailable Wilkinson, Dex Referring Unavailable Bárbara Ureña Attending Unavailable Wilkinson, Dex Primary Care Unavailable Babar Wood Attending Unavailable Wilkinson, Dex Primary Care Unavailable Lopez Larios Consulting Unavailable Taylor Tejeda Attending Unavailable Lopez Larios Admitting Unavailable Wilkinson, Dex Primary Care Unavailable Sergio Umaña Admitting Unavailable Filemon Subramanian Consulting Unavailable Willian Ovalles Attending Unavailable Wilkinson, Dex Primary Care Unavailable Mostafa, Chetan Consulting Unavailable Obed, Saman Consulting Unavailable Augustin Potts Consulting Unavailable Don Victoria Consulting Unavailable Demetrio Santamariaril Consulting Unavailable Cleo Huerta Consulting Unavailable Mercy Bishop Consulting Unavailable Jeronimo Floresadeivonne Consulting Unavailfanta e Satti, Vincent Consulting Unavailable Raza Caratore Consulting Unavailable Roof DRU, Bogdan Pope Consulting Unavailable Steffen BUCKLEY, Xochitl Min Consulting Unavail able Grover Guerra Consulting Unavailable Sergio Umaña Consulting Unavailable Wilkinson, Dex Primary Care Unavailable Friend, Quang Attending Unavailable Friend, Quang Referring Unavailable Wilkinson, Dex Primary Care Unavailable Gage Sharma Attending Unavailabl e Ileana, Taylor Peñaa Attending Unavailable Wilkinson, Dex Referring Unavailable Friend, Quang Attending Unavailable Wilkinson, Dex Primary Care Unavailable Mercy Bishop Attending Unavailable Sergio Umaña Attending Unavailable Lopez Larios Attending Unavailable Sergio Umaña Referring Unavailable Willian Colón Attending Unavailable Wilkinson, Dex Primary Care Unavailable Breann Loera Attending Unavailable Wilkinson, Dex Primary Care Unavailable Wilkinson, Dex Referring Unavailable Wilkinson, Dex Primary Care Unavailable Friend, Quang Attending Unavailable Friend, Quang Referring Unavailable Wilkinson, Dex Primary Care Unavailable Friend, Quang Attending Unavailable Friend, Quang Referring Unavailable Friend, Quang Attending Unavailable Friend, Quang Consulting Unavailable Wilkinson, Dex Primary Care Unavailable Wilkinson, Dex Referring Unavailable Dr. Dex Wilkinson MD Primary Care Provider Dr. Sergio Umaña DO Attending Provider Unav ailable Allergies Allergy Classification Reported Allergen(s) Allergy Type Date of Onset Reaction(s) Facility (10 sources) acetaminophen / HYDROcodone; Translations: [HYDROCODONE-ACETAMI NOPHEN] Drug Allergy 01-31-20 07 Shortness of Breath [facility] Repository (11 sources) azithromycin; Translations: [AZITHROMYCIN] Drug Allergy 10-20-19 07 Intolerance, Unknown [facility] Repository (16 sources) cucumber extract; Translations: [CUCUMBER] Drug Allergy 09-03-19 11 Anaphylaxis [facility] Repository (7 sources) FLUoxetine; Translations: [FLUOXETINE HCL] Drug Allergy 11-08-19 14 Other: See Comments [facility] Repository (20 sources) gabapentin; Translations: [GABAPENTIN] Drug Allergy 05-17-19 12 Mental Status Change [facility] Repository (7 sources) levoFLOXacin; Translations: [LEVOFLOXACIN IN D5W] Drug Allergy 04-05-19 14 Swelling, Itching [facility] Repository (4 sources) LORazepam; Translations: [LORAZEPAM] Drug Allergy 07-11-19 11 AOF, Other [facility] Repository (19 sources) morphine; Translations: [MORPHINE] Drug Allergy 09-15-19 11 [facility] Repository (2 sources) ondansetron; Translations: [ONDANSETRON HCL (PF)] Drug Allergy 11-17-19 12 AOF [facility] Repository (7 sources) Shellfish; Translations: [SHELLFISH] Propensity to adverse reactions to food (disorder) 08-21-19 14 Anaphylaxis [facility] Repository (20 sources) traMADol; Translations: [TRAMADOL] Drug All[facility] 12-09-[facility] (1 source) OTHER; Translations: [OTHER] Propensity to adverse reactions (disorder) 09-03-19 11 AOF [facility] Repository (7 sources) TRIMETHOBENZAMIDE-BE NZOCAINE; Translations: [TRIMETHOBENZAMIDE-B ENZOCAINE] Propensity to adverse reactions to drug (disorder) 09-23-19 13 Anaphylaxis [facility] Repository (7 sources) FISH; Translations: [FISH] Propensity to adverse reactions to food (disorder) 08-21-19 14 Anaphylaxis [facility] Repository (20 sources) Codeine; Translations: [codeine] Drug Allergy 11-03-19 Rash [facility] (18 sources) Erythromycin Drug Allergy 11-03-19 PT UNSURE OF REACTION [facility] (1 source) Penicillins Allergy to substance 11-03-19 PT UNSURE OF REACTION [facility] Work Phone: (16 sources) levoFLOXacin Drug Allergy 12-17-19 PT UNSURE OF REACTION [facility] (12 sources) Acetaminophen Drug Allergy 07-02-19 Other [facility] (12 sources) HYDROcodone Drug Allergy 07-02-19 Other [facility] (12 sources) Metoclopramide Drug Allergy 07-02-19 Other [facility] (16 sources) Shellfish; Translations: [SHELLFISH DERIVED] Allergy to substance 07-02-19 Anaphylaxis [facility] (15 sources) trimethobenzamide; Translations: [TRIMETHOBENZAMIDE] Drug Allergy 07-02-19 Anaphylaxis [facility] (12 sources) Fish Containing Products Allergy to substance 07-02-19 Other [facility] (3 sources) FLUoxetine; Translations: [FLUOXETINE] Drug Allergy 08-16-[address] [facility] Work Phone: (1 source) Acetaminophen Drug Allergy 08-21-19 [facility] Repository (1 source) Codeine Drug Allergy 08-21-19 [facility] Repository (1 source) HYDROcodone Drug Allergy 08-21-19 [facility] Repository (1 source) levoFLOXacin Drug Allergy 08-21-19 [facility] Repository (1 source) Metoclopramide Drug Allergy 08-21-19 [facility] Repository (1 source) trimethobenzamide Drug Allergy 08-21-19 [facility] Repository (1 source) Fish Containing Products Drug allergy (disorder) 08-21-19 [facility] Repository (1 source) erythromycin base Drug allergy (disorder) 08-21-19 [facility] Repository Medications Current Medications Medication Drug Class(es) Dates Sig (Normalized) Sig (Original) acetaminophen 325 mg / HYDROcodone bitartrate 5 mg oral tablet (1 source) Opioid Agonist Start: 11-13-2021 take 1 tablet by mouth every six hours Hydrocodone-Acet aminophen Active 1 TABLET PO EVERY 6 HOURS 12 3 November 13 2022 clindamycin 300 mg oral capsule (2 sources) Lincosamide Antibacterial Start: 11-02-2021 take 1 capsule by mouth every six hours Clindamycin Hcl (Cleocin Hcl) 300 mg capsule Active 300 MG PO EVERY 6 HOURS November 02, 2021 12:00am dicyclomine hydrochloride 10 mg oral capsule (17 sources) Anticholinergic Start: 07-08-2024 take 1 capsule [...] EVERY 6 HOURS November 13, 2021 12:00am 24 hr metoprolol succinate 25 mg extended release oral tablet (12 sources) beta-Adrenergic Krishan Start: 07-27-2024 pantoprazole 40 [...] 1 packet by mouth once daily. Active spironolactone 25 mg oral ta blet (7 sources) Aldosterone Antagonist Start: 08-15-2024 End: 08-15-2025 sucralfate 1000 mg oral tabl et (17 sources) Aluminum Complex Start: 07-08-2024 zolpidem tartrate [...] EVERY 6 HOURS as needed for pain 02 13July 01, 2024 July 20, 2024 11:41pm Start: [...] December 26, 2022 August 16, 2023 11:22am [id number] 200 actuat albuter ol 0.09 mg/actuat metered dose inhaler (18 sources) beta2-Adrenergic Agonist Start: 07-26-2023 End: 08-11-2024 [...] / clavula mayra 125 mg oral tablet (13 sources) Penicillin-class Antibacterial Start: 11-02-2023 End: 05-12-2024 [...] 1530, Intraprocedure celecoxib 200 mg oral capsule (16 sources) Nonsteroidal Anti-inflammatory Drug Start: 08-08-2024 End: [...] 11:23am ketorolac tromethamine 10 mg oral tablet (11 sources) Nonsteroidal Anti-inflammatory Drug, Cyclooxygenase Inhibitor Start: 07-03-2024 End: 07-20-2024 lidocaine hydrochloride 0.02 mg/mg topical gel (1 source) Antiarrhythmic, Amide Local Anesthetic Start: 07-25-2024 End: 07-25-2024 X (OR/PROCEDURE) PRN, Starting on Tue07/25/24 at 1530, Until Tue07/25/24 at 1530, Intraprocedure meloxicam 15 mg oral tablet (10 sources) Nonsteroidal Anti-inflammatory Drug Start: 08-10-2024 End: 09-11-2024 methscopolamine bromide 5 mg oral tablet (13 sources) Anticholinergic Start: 10-26-2023 End: 07-10-2024 5 [...] oxyCODONE hydrochloride 10 m g oral tablet (7 sources) Opioid Agonist Start: 08-28-2024 End: 09-04-2024 Start: 08-24-2024 End: 09-11-2024 predniSONE 20 mg oral tablet (20 sources) Start: 07-20-2024 End: 08-11-2024 Start: 07-01-2024 End: 07-10-2024 Start: 07-01-2024 End: 07-10-2024 take 2 tablets by mouth once daily Prednisone 20 mg tablet Discontinued 40 mg PO DAILY 12 16July 01, 2024 12:00am July 10, 2024 11:56am rimegepant 75 mg disintegrat ing oral tablet (12 sources) Start: 07-26-2023 End: 08-16-2023 Start: 07-26-2023 End: 08-16-2023 take 1 tablet by mouth once as needed Rimegepant (Nurtec Odt) 75 mg tablet,disintegrating Discontinued 75 mg PO ONCE as needed July 26, 2023 12:00am August 16, 2023 11:23am as a single dose 72 hr scopolamine 0.0139 mg/ hr transdermal system (13 sources) Anticholinergic Start: 08-20-2024 End: 09-11-2024 Start: 08-08-2024 End: 08-11-2024 sulfamethoxazole 800 mg / trimethoprim 160 mg oral tablet (20 sources) Dihydrofolate Reductase Inhibitor Antibacterial, Sulfonamide Antimicrobial Start: 08-11-2024 End: 08-11-2024 Start: 05-12-2024 End: 07-10-2024 Start: 05-12-2024 End: 07-10-2024 Sulfamethoxazole-Trimethopri m 800-160 mg tablet Discontinued 1 {tbl} PO TWICE A DAY May 12, 2024 1:00am July 10, 2024 11:56am traZODone hydrochloride 50 m g oral tablet (20 sources) Serotonin Reuptake Inhibitor Start: 08-11-2024 End: 08-11-2024 Start: 07-26-2023 End: 07-10-2024 Start: 07-26-2023 End: 07-10-2024 take 1 tablet by mouth at bedtime Trazodone 50 mg tablet Discontinued 50 mg PO AT BEDTIME July 26, 2023 12:00am July 10, 2024 11:56am vortioxetine 10 mg oral tabl et (14 sources) Start: 08-11-2024 End: 08-11-2024 Problems Active Problems Problem Classification Problem Date Documented Da te Episodic/Chronic Abdominal pain (20 sources) Unspecified abdominal pain; Translations: [Epigastric pain] Onset: 4 07-03-2024 Episodic Administrative/social admission (1 source) Persons encountering health services in other specified circumstances; Translations: [Encounter for incision and drainage procedure] Onset: Episodic Anxiety disorders (17 sources) Anxiety; Translations: [Anxiety disorder, unspecified] Onset: 9 07-26-2023 Chronic Comment on above: ON MED Asthma (16 sources) Asthma; Translations: [Unspecified asthma, uncomplicated] Resolved: 5 07-26-2023 Chronic Comment on above: PRN INHALER Biliary tract disease (5 sources) Common bile duct calculus; Translations: [Calculus [...] on above: Medtronic Visia AF M RI [id number] 10/29/2016[employer]onic [id number] right ventricular lead Congestive heart [...] Resolved: 8 11-13-2021 Episodic E Codes: Fall (15 sources) Unspecified fall due to ice and snow, initial encounter; Translations: [Fall due to slipping on ice or snow] 03-17-2022 Episodic Esophageal disorders (20 sources) Gastroesophageal reflux disease; Translations: [Gastro-esophageal reflux disease without esophagitis] Onset: 8 07-26-2023 Chronic Essential hypertension (20 sources) Hypertensive disorder; Translations: [Essential (primary) hypertension] Onset: 5 07-23-2024 Chronic Gastritis and duodenitis (20 sources) Acute hemorrhagic gastritis; Translations: [Gastritis, unspecified, with bleeding] Onset: 5 07-23-2024 Episodic Gastroduodenal ulcer (except hemorrhage) (4 sources) Gastric ulcer; Translations: [Gastric ulcer, unspecified as acute or chronic, without hemorrhage or perforation] Onset: Chronic Headache; including migraine (16 sources) Migraine; Translations: [Migraine, unspecified, not intractable, [...] encounter] Onset: 5 05-18-2024 Episodic Other aftercare (16 sources) Long-term current use of 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; Translations: [residential (current) use of 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s] Onset: 5 07-26-2023 Episodic Other aftercare (1 source) Patient encounter status; Translations: [Encounter for therapeutic drug level monitoring] Onset: 5 07-26-2024 Episodic Other aftercare (1 source) residential (current) use of 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s; Translations: [Current use of [facility] anticoagulation] Onset: Episodic Other and ill-defined heart disease (1 source) Hypertrophic cardiomegaly ; Translations: [Cardiomegaly] 08-15-2024 Chronic Other and ill-defined heart disease (2 sources) Cardiomegaly; Translations: [Cardiomegaly] Onset: Chronic Other circulatory disease (20 sources) History of cardiomyopathy; Translations: [Personal history of other diseases of the circulatory system] 07-21-2024 Episodic Other circulatory disease (1 source) Personal history of other diseases of the circulatory system; Translations: [Personal history of other diseases of the circulatory system] Onset: Episodic Other gastrointestinal disorders (1 source) Irritable bowel syndrome without diarrhea; Translations: [Irritable bowel syndrome, unspecified] Onset: Chronic Other gastrointestinal disorders (20 sources) Ascites; Translations: [Other ascites] Onset: 5 07-04-2023 Episodic Other gastrointestinal disorders (16 sources) Diarrhea; Translations: [Diarrhea, unspecified] 08-08-2024 Episodic Other liver diseases (1 source) Other specified inflammatory liver diseases; Translations: [Other specified inflammatory liver diseases] Onset: Chronic Other liver diseases (4 sources) Large liver; Translations: [Hepatomegaly, not elsewhere classified] Onset: 5 07-05-2024 Episodic Other liver diseases (8 sources) Elevated liver enzymes level; Translations: [Abnormal [...] 5 07-21-2024 Episodic Pancreatic disorders (not diabetes) (9 sources) Pancreatic duct disorder; Translations: [Other specified [...] 5 07-24-2024 Episodic Pleurisy; pneumothorax; pulmonary collapse (13 sources) Pleural effusion; Translations: [Pleural effusion, not elsewhere classified] 07-04-2023 Episodic Pulmonary heart disease (20 sources) Pulmonary hypertension, unspecified; Translations: [Severe pulmonary hypertension] Onset: 5 07-21-2024 Chronic Pulmonary heart disease (8 sources) Pulmonary thromboembolism; Translations: [Other pulmonary embolism without acute cor pulmonale] Onset: 7 01-22-2017 Episodic Residual codes; unclassified (16 sources) Insomnia; Translations: [Insomnia, unspecified] Onset: 5 [...] 5 Episodic Skin and subcutaneous tissue infections (20 sources) Abscess of lower leg; Translations: [Cutaneous abscess of left lower limb] Onset: 5 05-20-2024 Episodic Sprains and strains (15 sources) Sprain of knee; Translations: [Sprain of [...] Range Facility Absolute lymphocyte countOrd ered By: Gage Sharma on 09-11-2024 Lymphocytes Auto (Unsp spec) [#/Vol] 0.49 10*3/uL Low 0.83-4.51 [facility] Anion gap in Serum or Plasma Ordered By: Gage Sharma on 09-11-2024 Anion gap [Moles/Vol] 15 mmol/L 5-15 [facility] Automated lymphocyte count a s percentage of total leukocytesOrdered By: Gage Sharma on 09-11-2024 Lymphocytes/100 WBC Auto (Unsp spec) 3.6 % Low 19-41 [facility] BUN/creatinine ratioOrdered By: Gage Sharma on 09-11-2024 Urea nitrogen/Creatinine [Mass ratio] 24.2 mg/mg High 10-20 [facility] Basophil percentageOrdered B y: Gage Sharma on 09-11-2024 Basophils/100 WBC (Bld) 0.3 % 0-1 [facility] Bilirubin Test strip Ql (U)O rdered By: Gage Sharma on 09-11-2024 Bilirubin Ql (U) Negative Negative [facility] Bilirubin directOrdered By: Gage Sharma on 09-11-2024 Bilirubin.direct [Mass/Vol] 0.50 mg/dL High 0.00-0.30 [facility] Bilirubin, totalOrdered By: Gage Sharma on 09-11-2024 Bilirubin [Mass/Vol] 0.97 mg/dL 0.00-1.30 [facility] Carbon dioxide, total [Moles /volume] in Central venous bloodOrdered By: Gage Sharma on 09-11-2024 CO2 [Moles/Vol] 17.8 mmol/L Low 21.0-32.0 [facility] Chloride assayOrdered By: Jose Maria Sharma on 09-11-2024 Chloride [Moles/Vol] 105 mmol/L 98-108 [facility] Eosinophil percentageOrdered By: Gage Sharma on 09-11-2024 Eosinophils/100 WBC (Bld) 0.1 % 0-5 [facility] Erythrocyte distribution wid th ratioOrdered By: Gage Sharma on 09-11-2024 Erythrocyte distribution width (RBC) [Ratio] 14.6 % 11.6-14.6 [facility] Erythrocyte distribution wid th standard deviationOrdered By: Gage Batista on 09-11-2024 Erythrocyte distribution width (RBC) [Ratio] 49.9 fl High 35.1-43.9 [facility] Glomerular filtration rate ( GFR) estimation/1.73 sq m using serum, plasma, or whole bOrdered By: Gage Sharma on 09-11-2024 GFR/1.73 sq M.predicted among non-blacks MDRD (S/P/Bld) [Vol rate/Area] 97 mL/min/{1.73_m2} >60 [facility] Hematocrit Auto (Bld) [Volum e fraction]Ordered By: Gage Sharma on 09-11-2024 Hematocrit (Bld) [Volume fraction] 42.0 % 37-47 [facility] Hemoglobin measurementOrdere d By: Gage Sharma on 09-11-2024 Hemoglobin (Bld) [Mass/Vol] 13.8 g/dL 12.0-15.0 [facility] Immature granulocytes/100 WB C Auto (Bld)Ordered By: Gage Sharma on 09-11-2024 Immature granulocytes/100 WBC (Bld) 0.600 % 0.0-0.9 [facility] Ketones Test strip Ql (U)Ord ered By: Gage Sharma on 09-11-2024 Ketones Ql (U) Negative Negative [facility] MCV (mean corpuscular volume ) determinationOrdered By: Gage Sharma on 09-11-2024 MCV (RBC) [Entitic vol] 94.4 fL 81-99 [facility] Mean corpuscular hemoglobin (MCH) determinationOrdered By: Gage Sharma on 09-11-2024 MCH (RBC) [Entitic mass] 31.0 pg 27.0-32.0 [facility] Monocyte percentageOrdered B y: Gage Sharma on 09-11-2024 Monocytes/100 WBC (Bld) 0.7 % 0-10 [facility] Mucus LM Ql (Urine sed)Order ed By: Gage Sharma on 09-11-2024 Mucus Ql (Urine sed) 0 SEEN /hpf [facility] Neutrophil percentageOrdered By: Gage Sharma on 09-11-2024 Neutrophils/100 WBC (Bld) 94.7 % High 47-70 [facility] Nitrite Test strip Ql (U)Ord ered By: Gage Sharma on 09-11-2024 Nitrite Ql (U) Negative Negative [facility] No Panel InformationOrdered By: Gage Sharma on 09-11-2024 23 U/L <32 [facility] Platelet countOrdered By: Jose Maria Sharma on 09-11-2024 Platelets (Bld) [#/Vol] 349 10*3/uL 150-450 [facility] Potassium measurement (mass/ volume)Ordered By: Gage Sharma on 09-11-2024 Potassium (Unsp spec) [Mass/Vol] 4.1 mmol/L 3.3-5.1 [facility] Protein Test strip Ql (U)Ord ered By: Gage Sharma on 09-11-2024 Protein Ql (U) 100 mg/dl High Negative [facility] RBC Auto (Bld) [#/Vol]Ordere d By: Gage Sharma on 09-11-2024 RBC (Bld) [#/Vol] 4.45 10*6/uL 4.2-5.4 [facility] [facility] Serum beta-hCG test, qualita tiveOrdered By: Gage Sharma on 09-11-2024 Beta HCG ( test) Ql Negative [facility] Serum creatinine measurement (mass/volume)Ordered By: Gage Sharma on 09-11-2024 Creatinine [Mass/Vol] 0.77 mg/dL 0.70-1.20 [facility] Serum globulin measurementOr dered By: Gage Sharma on 09-11-2024 Globulin (S) [Mass/Vol] 3.0 g/dL 2.2-4.2 [facility] Serum glucose measurement (m ass/volume)Ordered By: Gage Sharma on 09-11-2024 Glucose [Mass/Vol] 132 mg/dL High 70-99 [facility] Serum or plasma alanine hair otransferase (ALT) measurementOrdered By: Gage Sharma on 09-11-2024 ALT [Catalytic activity/Vol] 17 U/L <35 [facility] Serum or plasma albumin leslie urement (mass/volume)Ordered By: Gage Batista on 09-11-2024 Albumin [Mass/Vol] 4.4 g/dL 3.5-5.0 [facility] Serum or plasma albumin/glob ulin mass ratioOrdered By: ED PROVIDER on 09-11-2024 Albumin/Globulin [Mass ratio] 1.4 {ratio} 0.9-2.4 [facility] Serum or plasma alkaline delfin sphatase measurementOrdered By: Gage Sharma on 09-11-2024 ALP [Catalytic activity/Vol] 163 U/L High 35-104 [facility] Serum or plasma calcium leslie urement (mass/volume)Ordered By: Gage Batista on 09-11-2024 Calcium [Mass/Vol] 9.4 mg/dL 7.6-11.0 [facility] Serum or plasma urea nitroge n measurement (mass/volume)Ordered By: Gage Sharma on 09-11-2024 Urea nitrogen [Mass/Vol] 19 mg/dL 4-19 [facility] Sodium levelOrdered By: Edd Sharma on 09-11-2024 Sodium [Moles/Vol] 138 mmol/L 133-145 [facility] Squamous epithelial cells de tection in urine sediment by light microscopyOrdered By: Gage Sharma on 09-11-2024 Epithelial cells.squamous LM Ql (Urine sed) 10-25 SEEN /hpf 5-10 [facility] Total proteinOrdered By: Zev Sharma on 09-11-2024 Protein [Mass/Vol] 7.4 g/dL 5.9-8.4 [facility] Urine clarityOrdered By: Zev Sharma on 09-11-2024 Clarity (U) Sl. Cloudy Clear [facility] Urine color determinationOrd ered By: Gage Sharma on 09-11-2024 Color (U) Yellow Yellow [facility] Urine glucose detectionOrder ed By: Gage Sharma on 09-11-2024 Glucose Ql (U) Normal mg/dl Normal [facility] Urine leukocyte esterase det ection by dipstickOrdered By: Gage Sharma on 09-11-2024 Leukocyte esterase Test strip Ql (U) Negative Negative [facility] Urine pHOrdered By: Gage Keller on 09-11-2024 pH (U) 7.0 [pH] 5.0 - 8.0 [facility] Urine sediment bacteria coun t by microscopy (number/high power field)Ordered By: Gage Sharma on 09-11-2024 Bacteria LM.HPF (Urine sed) [#/Area] 0 /[HPF] None Seen [facility] Urine specific gravity measu rementOrdered By: [facility] on 09-11-2024 Specific gravity (U) [Rel density] 1.010 1.002-1.03 0 [facility] Urine urobilinogen measureme ntOrdered By: [facility] on 09-11-2024 Urobilinogen Ql (U) 1 mg/dl High Normal [facility] White blood cell (WBC) count Ordered By: [facility] Centerk[facility]ne on 09-11-2024 WBC (Bld) [#/Vol] 13.7 10*3/uL High 4.4-11.0 [facility] White blood cell countOrdere d By: Gage Edith on 09-11-2024 White blood cell count 0-5 SEEN /hpf 0-5 [facility] CBC W/Diff, Automatedon 08-12 Absolute Neut Normal 2.0-7.7 [facility] Comment on above: Result Comment: Canc elled via OM: Order cancelled - Patient discharged Performed By: #### L 100.0100 ####[facility] [address] [facility] [id number] Normal 37-47 [facility] Comment on above: Result Comment: Canc elled via OM: Order cancelled - Patient discharged Performed By: #### L 100.0100 ####[facility] [address] [facility] [address] HGB Normal 12.0-15.0 [facility] Comment on above: Result Comment: Canc elled via OM: Order cancelled - Patient discharged Performed By: #### L 100.0100 ####[facility] [address] [facility] [address] MCH Normal 27.0-32.0 [facility] Comment on above: Result Comment: Canc elled via OM: Order cancelled - Patient discharged Performed By: #### L 100.0100 ####[facility] [address] [place], [address] MCHC Normal 32-36 [facility] Comment on above: Result Comment: Canc elled via OM: Order cancelled - Patient discharged Performed By: #### L 100.0100 ####[facility] [address] [place], [address] MCV Normal 81-99 [facility] Comment on above: Result Comment: Canc elled via OM: Order cancelled - Patient discharged Performed By: #### L 100.0100 ####[facility] [address] [place], [address] NEUT% Normal 47-70 [facility] Comment on above: Result Comment: Canc elled via OM: Order cancelled - Patient discharged Performed By: #### L 100.0100 ####[facility] [address] [place], [address] PLT Normal 150-450 [facility] Comment on above: Result Comment: Canc elled via OM: Order cancelled - Patient discharged Performed By: #### L 100.0100 ####[facility] [address] [place], [address] RBC Normal 4.2-5.4 [facility] Comment on above: Result Comment: Canc elled via OM: Order cancelled - Patient discharged Performed By: #### L 100.0100 ####[facility] [address] [place], [address] RDW CV Normal 11.6-14.6 [facility] Comment on above: Result Comment: Canc elled via OM: Order cancelled - Patient discharged Performed By: #### L 100.0100 ####[facility] [address] [place], [address] RDW SD Normal 35.1-43.9 [facility] Comment on above: Result Comment: Canc elled via OM: Order cancelled - Patient discharged Performed By: #### L 100.0100 ####[facility] [address] [place], [address] WBC Normal 4.4-11.0 [facility] Comment on above: Result Comment: Canc elled via OM: Order cancelled - Patient discharged Performed By: #### L 100.0100 ####[facility] [address] [place], [address] CBC W/Diff, Automatedon - Absolute Neut Normal 2.0-7.7 [facility] Comment on above: Result Comment: Canc elled via OM: Order cancelled - Patient discharged Performed By: #### L 100.0100 ####[facility] [address] [place], [address] HCT Normal 37-47 [facility] Comment on above: Result Comment: Canc elled via OM: Order cancelled - Patient discharged Performed By: #### L 100.0100 ####[facility] [address] [place], [address] HGB Normal 12.0-15.0 [facility] Comment on above: Result Comment: Canc elled via OM: Order cancelled - Patient discharged Performed By: #### L 100.0100 ####[facility] [address] [place], [address] MCH Normal 27.0-32.0 [facility] Comment on above: Result Comment: Canc elled via OM: Order cancelled - Patient discharged Performed By: #### L 100.0100 ####[facility] [address] [place], [address] MCHC Normal 32-36 [facility] Comment on above: Result Comment: Canc elled via OM: Order cancelled - Patient discharged Performed By: #### L 100.0100 ####[facility] [address] [place], [address] MCV Normal 81-99 [facility] Comment on above: Result Comment: Canc elled via OM: Order cancelled - Patient discharged Performed By: #### L 100.0100 ####[facility] [address] [place], [address] NEUT% Normal 47-70 [facility] Comment on above: Result Comment: Canc elled via OM: Order cancelled - Patient discharged Performed By: #### L 100.0100 ####[facility] [address] [place], [address] PLT Normal 150-450 [facility] Comment on above: Result Comment: Canc elled via OM: Order cancelled - Patient discharged Performed By: #### L 100.0100 ####[facility] [address] [place], [address] RBC Normal 4.2-5.4 [facility] Comment on above: Result Comment: Canc elled via OM: Order cancelled - Patient discharged Performed By: #### L 100.0100 ####[facility] [address] [place], [address] RDW CV Normal 11.6-14.6 [facility] Comment on above: Result Comment: Canc elled via OM: Order cancelled - Patient discharged Performed By: #### L 100.0100 ####[facility] [address] [place], [address] RDW SD Normal 35.1-43.9 [facility] Comment on above: Result Comment: Canc elled via OM: Order cancelled - Patient discharged Performed By: #### L 100.0100 ####[facility] [address] [place], [address] WBC Normal 4.4-11.0 [facility] Comment on above: Result Comment: Canc elled via OM: Order cancelled - Patient discharged Performed By: #### L 100.0100 ####[facility] [address] [place], [address] Gastric Emptying Studyon Gastric Emptying Study Normal [facility] CBC W/Diff, Automatedon 08-12 Absolute Neut Normal 2.0-7.7 [facility] Comment on above: Result Comment: Canc elled via OM: Order cancelled - Patient discharged Performed By: #### L 100.0100 ####[facility] [address] [place], [address] HCT Normal 37-47 [facility] Comment on above: Result Comment: Canc elled via OM: Order cancelled - Patient discharged Performed By: #### L 100.0100 ####[facility] [address] [place], [address] HGB Normal 12.0-15.0 [facility] Comment on above: Result Comment: Canc elled via OM: Order cancelled - Patient discharged Performed By: #### L 100.0100 ####[facility] [address] [place], [address] MCH Normal 27.0-32.0 [facility] Comment on above: Result Comment: Canc elled via OM: Order cancelled - Patient discharged Performed By: #### L 100.0100 ####[facility] [address] [place], [address] MCHC Normal 32-36 [facility] Comment on above: Result Comment: Canc elled via OM: Order cancelled - Patient discharged Performed By: #### L 100.0100 ####[facility] [address] [place], [address] MCV Normal 81-99 [facility] Comment on above: Result Comment: Canc elled via OM: Order cancelled - Patient discharged Performed By: #### L 100.0100 ####[facility] [address] [place], [address] NEUT% Normal 47-70 [facility] Comment on above: Result Comment: Canc elled via OM: Order cancelled - Patient discharged Performed By: #### L 100.0100 ####[facility] [address] [place], [address] PLT Normal 150-450 [facility] Comment on above: Result Comment: Canc elled via OM: Order cancelled - Patient discharged Performed By: #### L 100.0100 ####[facility] [address] [place], [address] RBC Normal 4.2-5.4 [facility] Comment on above: Result Comment: Canc elled via OM: Order cancelled - Patient discharged Performed By: #### L 100.0100 ####[facility] [address] [place], [address] RDW CV Normal 11.6-14.6 [facility] Comment on above: Result Comment: Canc elled via OM: Order cancelled - Patient discharged Performed By: #### L 100.0100 ####[facility] [address] [place], [address] RDW SD Normal 35.1-43.9 [facility] Comment on above: Result Comment: Canc elled via OM: Order cancelled - Patient discharged Performed By: #### L 100.0100 ####[facility] [address] [place], [address] WBC Normal 4.4-11.0 [facility] Comment on above: Result Comment: Canc elled via OM: Order cancelled - Patient discharged Performed By: #### L 100.0100 ####[facility] [address] [place], [address] MRCP Abdomen without Contras ton 08-27-2024 MRCP Abdomen without Contrast Normal [facility] CBC W/Diff, Automatedon 08-12 Absolute Neut Normal 2.0-7.7 [facility] Comment on above: Result Comment: Canc elled via OM: Order cancelled - Patient discharged Performed By: #### L 100.0100, L500.4050 ####[facility] [address] [place], [address] HCT Normal 37-47 [facility] Comment on above: Result Comment: Canc elled via OM: Order cancelled - Patient discharged Performed By: #### L 100.0100, L500.4050 ####[facility] [address] [place], [address] HGB Normal 12.0-15.0 [facility] Comment on above: Result Comment: Canc elled via OM: Order cancelled - Patient discharged Performed By: #### L 100.0100, L500.4050 ####[facility] [address] [place], [address] MCH Normal 27.0-32.0 [facility] Comment on above: Result Comment: Canc elled via OM: Order cancelled - Patient discharged Performed By: #### L 100.0100, L500.4050 ####[facility] [address] [place], [address] MCHC Normal 32-36 [facility] Comment on above: Result Comment: Canc elled via OM: Order cancelled - Patient discharged Performed By: #### L 100.0100, L500.4050 ####[facility] [address] [place], [address] MCV Normal 81-99 [facility] Comment on above: Result Comment: Canc elled via OM: Order cancelled - Patient discharged Performed By: #### L 100.0100, L500.4050 ####[facility] [address] [place], [address] NEUT% Normal 47-70 [facility] Comment on above: Result Comment: Canc elled via OM: Order cancelled - Patient discharged Performed By: #### L 100.0100, L500.4050 ####[facility] [address] [place], [address] PLT Normal 150-450 [facility] Comment on above: Result Comment: Canc elled via OM: Order cancelled - Patient discharged Performed By: #### L 100.0100, L500.4050 ####[facility] [address] [place], [address] RBC Normal 4.2-5.4 [facility] Comment on above: Result Comment: Canc elled via OM: Order cancelled - Patient discharged Performed By: #### L 100.0100, L500.4050 ####[facility] [address] [place], [address] RDW CV Normal 11.6-14.6 [facility] Comment on above: Result Comment: Canc elled via OM: Order cancelled - Patient discharged Performed By: #### L 100.0100, L500.4050 ####[facility] [address] [place], [address] RDW SD Normal 35.1-43.9 [facility] Comment on above: Result Comment: Canc elled via OM: Order cancelled - Patient discharged Performed By: #### L 100.0100, L500.4050 ####[facility] [address] [place], [address] WBC Normal 4.4-11.0 [facility] Comment on above: Result Comment: Canc elled via OM: Order cancelled - Patient discharged Performed By: #### L 100.0100, L500.4050 ####[facility] [address] [place], [address] Comprehensive Metabolic Prof emelia 08-26-2024 ALB Normal 3.5-5.0 [facility] Comment on above: Result Comment: Canc elled via OM: Order cancelled - Patient discharged Performed By: #### L 100.0100, L500.4050 ####[facility] [address] [place], [address] ALK PHOS Normal 35-104 [facility] Comment on above: Result Comment: Canc elled via OM: Order cancelled - Patient discharged Performed By: #### L 100.0100, L500.4050 ####[facility] [address] [place], [address] ALT Normal <=34 [facility] Comment on above: Result Comment: Canc elled via OM: Order cancelled - Patient discharged Performed By: #### L 100.0100, L500.4050 ####[facility] [address] [place], [address] AST Normal <=31 [facility] Comment on above: Result Comment: Canc elled via OM: Order cancelled - Patient discharged Performed By: #### L 100.0100, L500.4050 ####[facility] [address] [place], [address] BUN Normal 4-19 [facility] Comment on above: Result Comment: Canc elled via OM: Order cancelled - Patient discharged Performed By: #### L 100.0100, L500.4050 ####[facility] [address] [place], [address] BUN/CRE Normal 10-20 [facility] Comment on above: Result Comment: Canc elled via OM: Order cancelled - Patient discharged Performed By: #### L 100.0100, L500.4050 ####[facility] [address] [place], [address] Calcium Normal 7.6-11.0 [facility] Comment on above: Result Comment: Canc elled via OM: Order cancelled - Patient discharged Performed By: #### L 100.0100, L500.4050 ####[facility] [address] [place], [address] CL Normal 98-108 [facility] Comment on above: Result Comment: Canc elled via OM: Order cancelled - Patient discharged Performed By: #### L 100.0100, L500.4050 ####[facility] [address] [place], [address] CO2 Normal 21.0-32.0 [facility] Comment on above: Result Comment: Canc elled via OM: Order cancelled - Patient discharged Performed By: #### L 100.0100, L500.4050 ####[facility] [address] [place], [address] CREAT,SERUM Normal 0.70-1.20 [facility] Comment on above: Result Comment: Canc elled via OM: Order cancelled - Patient discharged Performed By: #### L 100.0100, L500.4050 ####[facility] [address] [place], [address] eGFR Normal >60 [facility] Comment on above: Result Comment: Canc elled via OM: Order cancelled - Patient discharged Performed By: #### L 100.0100, L500.4050 ####[facility] [address] [place], [address] GAP Normal 5-15 [facility] Comment on above: Result Comment: Canc elled via OM: Order cancelled - Patient discharged Performed By: #### L 100.0100, L500.4050 ####[facility] [address] [place], [address] GLU Normal 70-99 [facility] Comment on above: Result Comment: Canc elled via OM: Order cancelled - Patient discharged Performed By: #### L 100.0100, L500.4050 ####[facility] [address] [place], [address] Potassium Normal 3.3-5.1 [facility] Comment on above: Result Comment: Canc elled via OM: Order cancelled - Patient discharged Performed By: #### L 100.0100, L500.4050 ####[facility] [address] [place], [address] T BILI Normal 0.00-1.30 [facility] Comment on above: Result Comment: Canc elled via OM: Order cancelled - Patient discharged Performed By: #### L 100.0100, L500.4050 ####[facility] [address] [place], [address] T PROT Normal 5.9-8.4 [facility] Comment on above: Result Comment: Canc elled via OM: Order cancelled - Patient discharged Performed By: #### L 100.0100, L500.4050 ####[facility] [address] [place], [address] Comprehensive Metabolic Profil Normal 133-145 [facility] Comment on above: Result Comment: Canc elled via OM: Order cancelled - Patient discharged Performed By: #### L 100.0100, L500.4050 ####[facility] [address] [place], [address] CBC W/Diff, Automatedon 06-1 Absolute Neut Normal 2.0-7.7 [facility] Comment on above: Result Comment: Canc elled via OM: Order cancelled - Patient discharged Performed By: #### L 100.0100, L500.4050 ####[facility] [address] [place], [address] HCT Normal 37-47 [facility] Comment on above: Result Comment: Canc elled via OM: Order cancelled - Patient discharged Performed By: #### L 100.0100, L500.4050 ####[facility] [address] [place], [address] HGB Normal 12.0-15.0 [facility] Comment on above: Result Comment: Canc elled via OM: Order cancelled - Patient discharged Performed By: #### L 100.0100, L500.4050 ####[facility] [address] [place], [address] MCH Normal 27.0-32.0 [facility] Comment on above: Result Comment: Canc elled via OM: Order cancelled - Patient discharged Performed By: #### L 100.0100, L500.4050 ####[facility] [address] [place], [address] MCHC Normal 32-36 [facility] Comment on above: Result Comment: Canc elled via OM: Order cancelled - Patient discharged Performed By: #### L 100.0100, L500.4050 ####[facility] [address] [place], [address] MCV Normal 81-99 [facility] Comment on above: Result Comment: Canc elled via OM: Order cancelled - Patient discharged Performed By: #### L 100.0100, L500.4050 ####[facility] [address] [place], [address] NEUT% Normal 47-70 [facility] Comment on above: Result Comment: Canc elled via OM: Order cancelled - Patient discharged Performed By: #### L 100.0100, L500.4050 ####[facility] [address] [place], [address] PLT Normal 150-450 [facility] Comment on above: Result Comment: Canc elled via OM: Order cancelled - Patient discharged Performed By: #### L 100.0100, L500.4050 ####[facility] [address] [place], [address] RBC Normal 4.2-5.4 [facility] Comment on above: Result Comment: Canc elled via OM: Order cancelled - Patient discharged Performed By: #### L 100.0100, L500.4050 ####[facility] [address] [place], [address] RDW CV Normal 11.6-14.6 [facility] Comment on above: Result Comment: Canc elled via OM: Order cancelled - Patient discharged Performed By: #### L 100.0100, L500.4050 ####[facility] [address] [place], [address] RDW SD Normal 35.1-43.9 [facility] Comment on above: Result Comment: Canc elled via OM: Order cancelled - Patient discharged Performed By: #### L 100.0100, L500.4050 ####[facility] [address] [place], [address] WBC Normal 4.4-11.0 [facility] Comment on above: Result Comment: Canc elled via OM: Order cancelled - Patient discharged Performed By: #### L 100.0100, L500.4050 ####[facility] [address] [place], [address] Comprehensive Metabolic Prof ilon 08-25-2024 ALB Normal 3.5-5.0 [facility] Comment on above: Result Comment: Canc elled via OM: Order cancelled - Patient discharged Performed By: #### L 100.0100, L500.4050 ####[facility] [address] [place], [address] ALK PHOS Normal 35-104 [facility] Comment on above: Result Comment: Canc elled via OM: Order cancelled - Patient discharged Performed By: #### L 100.0100, L500.4050 ####[facility] [address] [place], [address] ALT Normal <=34 [facility] Comment on above: Result Comment: Canc elled via OM: Order cancelled - Patient discharged Performed By: #### L 100.0100, L500.4050 ####[facility] [address] [place], [address] AST Normal <=31 [facility] Comment on above: Result Comment: Canc elled via OM: Order cancelled - Patient discharged Performed By: #### L 100.0100, L500.4050 ####[facility] [address] [place], [address] BUN Normal 4-19 [facility] Comment on above: Result Comment: Canc elled via OM: Order cancelled - Patient discharged Performed By: #### L 100.0100, L500.4050 ####[facility] [address] [place], [address] BUN/CRE Normal 10-20 [facility] Comment on above: Result Comment: Canc elled via OM: Order cancelled - Patient discharged Performed By: #### L 100.0100, L500.4050 ####[facility] [address] [place], [address] Calcium Normal 7.6-11.0 [facility] Comment on above: Result Comment: Canc elled via OM: Order cancelled - Patient discharged Performed By: #### L 100.0100, L500.4050 ####[facility] [address] [place], [address] CL Normal 98-108 [facility] Comment on above: Result Comment: Canc elled via OM: Order cancelled - Patient discharged Performed By: #### L 100.0100, L500.4050 ####[facility] [address] [place], [address] CO2 Normal 21.0-32.0 [facility] Comment on above: Result Comment: Canc elled via OM: Order cancelled - Patient discharged Performed By: #### L 100.0100, L500.4050 ####[facility] [address] [place], [address] CREAT,SERUM Normal 0.70-1.20 [facility] Comment on above: Result Comment: Canc elled via OM: Order cancelled - Patient discharged Performed By: #### L 100.0100, L500.4050 ####[facility] [address] [place], [address] eGFR Normal >60 [facility] Comment on above: Result Comment: Canc elled via OM: Order cancelled - Patient discharged Performed By: #### L 100.0100, L500.4050 ####[facility] [address] [place], [address] GAP Normal 5-15 [facility] Comment on above: Result Comment: Canc elled via OM: Order cancelled - Patient discharged Performed By: #### L 100.0100, L500.4050 ####[facility] [address] [place], [address] GLU Normal 70-99 [facility] Comment on above: Result Comment: Canc elled via OM: Order cancelled - Patient discharged Performed By: #### L 100.0100, L500.4050 ####[facility] [address] [place], [address] Potassium Normal 3.3-5.1 [facility] Comment on above: Result Comment: Canc elled via OM: Order cancelled - Patient discharged Performed By: #### L 100.0100, L500.4050 ####[facility] [address] [place], [address] T BILI Normal 0.00-1.30 [facility] Comment on above: Result Comment: Canc elled via OM: Order cancelled - Patient discharged Performed By: #### L 100.0100, L500.4050 ####[facility] [address] [place], [address] T PROT Normal 5.9-8.4 [facility] Comment on above: Result Comment: Canc elled via OM: Order cancelled - Patient discharged Performed By: #### L 100.0100, L500.4050 ####[facility] [address] [place], [address] Comprehensive Metabolic Profil Normal 133-145 [facility] Comment on above: Result Comment: Canc elled via OM: Order cancelled - Patient discharged Performed By: #### L 100.0100, L500.4050 ####[facility] [address] [place], [address] Absolute lymphocyte countOrd ered By: Taylor Tejeda on 08-24-2024 Lymphocytes Auto (Unsp spec) [#/Vol] 1.18 10*3/uL 0.83-4.51 [facility] Anion gap in Serum or Plasma Ordered By: Taylor Tejeda on 08-24-2024 Anion gap [Moles/Vol] 12 mmol/L 5-15 [facility] Automated lymphocyte count a s percentage of total leukocytesOrdered By: Taylor Tejeda on 08-24-2024 Lymphocytes/100 WBC Auto (Unsp spec) 14.1 % Low 19-41 [facility] BUN/creatinine ratioOrdered By: Taylor Tejeda on 08-24-2024 Urea nitrogen/Creatinine [Mass ratio] 10.5 mg/mg 10-20 [facility] Basophil percentageOrdered B y: Taylor Tejeda on 08-24-2024 Basophils/100 WBC (Bld) 0.5 % 0-1 [facility] Bilirubin, totalOrdered By: Taylor Tejeda on 08-24-2024 Bilirubin [Mass/Vol] 0.32 mg/dL 0.00-1.30 [facility] CBC W/Diff, Automatedon 08-12 Absolute Lymph 1.18 X10 3/uL Normal 0.83-4.51 [facility] Comment on above: Performed By: #### L 100.0100, L500.4050 ####[facility] [address] [place], [address] Absolute Neut 6.4 X10 3/uL Normal 2.0-7.7 [facility] Comment on above: Performed By: #### L 100.0100, L500.4050 ####[facility] [address] [place], [address] Basophils/100 WBC (Bld) 0.5 % Normal 0-1 [facility] Comment on above: Performed By: #### L 100.0100, L500.4050 ####[facility] [address] [place], [address] Eosinophils/100 WBC (Bld) 2.2 % Normal 0-5 [facility] Comment on above: Performed By: #### L 100.0100, L500.4050 ####[facility] [address] [place], [address] Erythrocyte distribution width (RBC) [Ratio] 14.0 % Normal 11.6-14.6 [facility] Comment on above: Performed By: #### L 100.0100, L500.4050 ####[facility] [address] [place], [address] Hematocrit (Bld) [Volume fraction] 36.5 % Low 37-47 [facility] Comment on above: Performed By: #### L 100.0100, L500.4050 ####[facility] [address] [place], [address] Hemoglobin (Bld) [Mass/Vol] 12.0 g/dL Normal 12.0-15.0 [facility] Comment on above: Performed By: #### L 100.0100, L500.4050 ####[facility] [address] [place], [address] IG% 0.600 Normal 0.0-0.9 [facility] Comment on above: Result Comment: IG% - Immature Granulocytes (promyelocytes, myelocytes andmetamyelocytes) > 1% indicates that a LEFT SHIFT is Present. Performed By: #### L 100.0100, L500.4050 ####[facility] [address] [place], [address] Lymphocytes/100 WBC (Bld) 14.1 % Low 19-41 [facility] Comment on above: Performed By: #### L 100.0100, L500.4050 ####[facility] [address] [place], [address] MCH (RBC) [Entitic mass] 31.6 pg Normal 27.0-32.0 [facility] Comment on above: Performed By: #### L 100.0100, L500.4050 ####[facility] [address] [place], [address] MCHC (RBC) [Mass/Vol] 32.9 g/dL Normal 32-36 [facility] Comment on above: Performed By: #### L 100.0100, L500.4050 ####[facility] [address] [place], [address] MCV (RBC) [Entitic vol] 96.1 fL Normal 81-99 [facility] Comment on above: Performed By: #### L 100.0100, L500.4050 ####[facility] [address] [place], [address] Monocytes/100 WBC (Bld) 6.6 % Normal 0-10 [facility] Comment on above: Performed By: #### L 100.0100, L500.4050 ####[facility] [address] [place], [address] Neutrophils/100 WBC (Bld) 76.0 % High 47-70 [facility] Comment on above: Performed By: #### L 100.0100, L500.4050 ####[facility] [address] [place], [address] Nucleated RBC (Bld) [#/Vol] 0 10*3/uL Normal 0-5 [facility] Comment on above: Performed By: #### L 100.0100, L500.4050 ####[facility] [address] [place], [address] Platelet mean volume (Bld) [Entitic vol] 10.1 fL Normal 6.2-12.0 [facility] Comment on above: Performed By: #### L 100.0100, L500.4050 ####[facility] [address] [place], [address] Platelets (Bld) [#/Vol] 246 10*3/uL Normal 150-450 [facility] Comment on above: Performed By: #### L 100.0100, L500.4050 ####[facility] [address] [place], [address] RBC (Bld) [#/Vol] 3.80 10*6/uL Low 4.2-5.4 [facility] Comment on above: Performed By: #### L 100.0100, L500.4050 ####[facility] [address] [place], [address] RDW SD 48.5 fl High 35.1-43.9 [facility] Comment on above: Performed By: #### L 100.0100, L500.4050 ####[facility] [address] [place], [address] WBC (Bld) [#/Vol] 8.4 10*3/uL Normal 4.4-11.0 [facility] Comment on above: Performed By: #### L 100.0100, L500.4050 ####[facility] [address] [place], [address] Carbon dioxide, total [Moles /volume] in Central venous bloodOrdered By: Taylor Tejeda on 08-24-2024 CO2 [Moles/Vol] 21.5 mmol/L 21.0-32.0 [facility] Chloride assayOrdered By: Soledad Tejeda on 08-24-2024 Chloride [Moles/Vol] 104 mmol/L 98-108 [facility] Comprehensive Metabolic Prof ilon 08-24-2024 Albumin [Mass/Vol] 3.5 g/dL Normal 3.5-5.0 [facility] Comment on above: Performed By: #### L 100.0100, L500.4050 ####[facility] [address] [place], [address] Albumin/Globulin [Mass ratio] 1.4 {ratio} Normal 0.9-2.4 [facility] Comment on above: Performed By: #### L 100.0100, L500.4050 ####[facility] [address] [place], [address] ALK PHOS 163 U/L High 35-104 [facility] Comment on above: Performed By: #### L 100.0100, L500.4050 ####[facility] [address] [place], [address] ALT [Catalytic activity/Vol] 184 U/L High <=34 [facility] Comment on above: Performed By: #### L 100.0100, L500.4050 ####[facility] [address] [place], [address] AST [Catalytic activity/Vol] 54 U/L High <=31 [facility] Comment on above: Performed By: #### L 100.0100, L500.4050 ####[facility] [address] [place], [address] Bilirubin [Mass/Vol] 0.32 mg/dL Normal 0.00-1.30 [facility] Comment on above: Performed By: #### L 100.0100, L500.4050 ####[facility] [address] [place], [address] BUN/CRE 10.5 RATIO Normal 10-20 [facility] Comment on above: Performed By: #### L 100.0100, L500.4050 ####[facility] [address] [place], [address] Calcium [Mass/Vol] 8.8 mg/dL Normal 7.6-11.0 [facility] Comment on above: Performed By: #### L 100.0100, L500.4050 ####[facility] [address] [place], [address] Chloride [Moles/Vol] 104 mmol/L Normal 98-108 [facility] Comment on above: Performed By: #### L 100.0100, L500.4050 ####[facility] [address] [place], [address] CO2 [Moles/Vol] 21.5 mmol/L Normal 21.0-32.0 [facility] Comment on above: Performed By: #### L 100.0100, L500.4050 ####[facility] [address] [place], [address] Creatinine [Mass/Vol] 1.02 mg/dL Normal 0.70-1.20 [facility] Comment on above: Performed By: #### L 100.0100, L500.4050 ####[facility] [address] [place], [address] ECRCL 60.78 ml/min Normal 50-250 [facility] Comment on above: Performed By: #### L 100.0100, L500.4050 ####[facility] [address] [place], [address] GAP 12 Normal 5-15 [facility] Comment on above: Performed By: #### L 100.0100, L500.4050 ####[facility] [address] [place], [address] GFR/1.73 sq M.predicted among non-blacks MDRD (S/P/Bld) [Vol rate/Area] 70 mL/min/{1.73_m2} Normal >60 [facility] Comment on above: Result Comment: mL/m in/1.73m2 CKD-EPI Creatinine Equation (2020) Performed By: #### L 100.0100, L500.4050 ####[facility] [address] [place], [address] Globulin (S) [Mass/Vol] 2.5 g/dL Normal 2.2-4.2 [facility] Comment on above: Performed By: #### L 100.0100, L500.4050 ####[facility] [address] [place], [address] Glucose [Mass/Vol] 126 mg/dL High 70-99 [facility] Comment on above: Performed By: #### L 100.0100, L500.4050 ####[facility] [address] [place], [address] Potassium [Moles/Vol] 4.2 mmol/L Normal 3.3-5.1 [facility] Comment on above: Performed By: #### L 100.0100, L500.4050 ####[facility] [address] [place], [address] Sodium [Moles/Vol] 137 mmol/L Normal 133-145 [facility] Comment on above: Performed By: #### L 100.0100, L500.4050 ####[facility] [address] [place], [place], [address] T PROT 6.0 g/dL Normal 5.9-8.4 [facility] Comment on above: Performed By: #### L 100.0100, L500.4050 ####[facility] [address] [place], [place], [address] Urea nitrogen [Mass/Vol] 11 mg/dL Normal 4-19 [facility] Comment on above: Performed By: #### L 100.0100, L500.4050 ####[facility] [address] [place], [place], [address] Discharge Instructionon 08-12 Discharge Instruction Normal [facility] Eosinophil percentageOrdered By: Taylor Tejeda on 08-24-2024 Eosinophils/100 WBC (Bld) 2.2 % 0-5 [facility] Erythrocyte distribution wid th ratioOrdered By: Taylor Tejeda on 08-24-2024 Erythrocyte distribution width (RBC) [Ratio] 14.0 % 11.6-14.6 [facility] Erythrocyte distribution wid th standard deviationOrdered By: Taylor Tejeda on 08-24-2024 Erythrocyte distribution width (RBC) [Ratio] 48.5 fl High 35.1-43.9 [facility] Glomerular filtration rate ( GFR) estimation/1.73 sq m using serum, plasma, or whole bOrdered By: Taylor Tejeda on 08-24-2024 GFR/1.73 sq M.predicted among non-blacks MDRD (S/P/Bld) [Vol rate/Area] 70 mL/min/{1.73_m2} >60 [facility] Hematocrit Auto (Bld) [Volum e fraction]Ordered By: Taylor Tejeda on 08-24-2024 Hematocrit (Bld) [Volume fraction] 36.5 % Low 37-47 [facility] Hemoglobin measurementOrdere d By: Taylor Tejeda on 08-24-2024 Hemoglobin (Bld) [Mass/Vol] 12.0 g/dL 12.0-15.0 [facility] Immature granulocytes/100 WB C Auto (Bld)Ordered By: Taylor Tejeda on 08-24-2024 Immature granulocytes/100 WBC (Bld) 0.600 % 0.0-0.9 [facility] MCV (mean corpuscular volume ) determinationOrdered By: Taylor Tejeda on 08-24-2024 MCV (RBC) [Entitic vol] 96.1 fL 81-99 [facility] Mean corpuscular hemoglobin (MCH) determinationOrdered By: Taylor Tejeda on 08-24-2024 MCH (RBC) [Entitic mass] 31.6 pg 27.0-32.0 [facility] Monocyte percentageOrdered B y: Taylor Tejeda on 08-24-2024 Monocytes/100 WBC (Bld) 6.6 % 0-10 [facility] Neutrophil percentageOrdered By: Taylor Tejeda on 08-24-2024 Neutrophils/100 WBC (Bld) 76.0 % High 47-70 [facility] No Panel InformationOrdered By: Taylor Tejeda on 08-24-2024 54 U/L High <32 [facility] Platelet countOrdered By: Soledad Tejeda on 08-24-2024 Platelets (Bld) [#/Vol] 246 10*3/uL 150-450 [facility] Potassium measurement (mass/ volume)Ordered By: Taylor Tejeda on 08-24-2024 Potassium (Unsp spec) [Mass/Vol] 4.2 mmol/L 3.3-5.1 [facility] RBC Auto (Bld) [#/Vol]Ordere d By: Taylor Tejeda on 08-24-2024 RBC (Bld) [#/Vol] 3.80 10*6/uL Low 4.2-5.4 [facility] Serum creatinine measurement (mass/volume)Ordered By: Taylor Tejeda on 08-24-2024 Creatinine [Mass/Vol] 1.02 mg/dL 0.70-1.20 [facility] Serum globulin measurementOr dered By: Taylor Tejeda on 08-24-2024 Globulin (S) [Mass/Vol] 2.5 g/dL 2.2-4.2 [facility] Serum glucose measurement (m ass/volume)Ordered By: Taylor Tejeda on 08-24-2024 Glucose [Mass/Vol] 126 mg/dL High 70-99 [facility] Serum or plasma alanine hair otransferase (ALT) measurementOrdered By: Taylor Tejeda on 08-24-2024 ALT [Catalytic activity/Vol] 184 U/L High <35 [facility] Serum or plasma albumin leslie urement (mass/volume)Ordered By: Tayolr Tejeda on 08-24-2024 Albumin [Mass/Vol] 3.5 g/dL 3.5-5.0 [facility] Serum or plasma albumin/glob ulin mass ratioOrdered By: Taylor Tejeda 08-24-2024 Albumin/Globulin [Mass ratio] 1.4 {ratio} 0.9-2.4 [facility] Serum or plasma alkaline delfin sphatase measurementOrdered By: Taylor Tejeda 08-24-2024 ALP [Catalytic activity/Vol] 163 U/L High 35-104 [facility] Serum or plasma calcium leslie urement (mass/volume)Ordered By: Taylor Tejeda 08-24-2024 Calcium [Mass/Vol] 8.8 mg/dL 7.6-11.0 [facility] Serum or plasma urea nitroge n measurement (mass/volume)Ordered By: Taylor Tejeda 08-24-2024 Urea nitrogen [Mass/Vol] 11 mg/dL 4-19 [facility] Sodium levelOrdered By: Taylor Tejeda 08-24-2024 Sodium [Moles/Vol] 137 mmol/L 133-145 [facility] Total proteinOrdered By: Laquita Tejeda on 08-24-2024 Protein [Mass/Vol] 6.0 g/dL 5.9-8.4 [facility] White blood cell (WBC) count Ordered By: Taylor Tejeda on 08-24-2024 WBC (Bld) [#/Vol] 8.4 10*3/uL 4.4-11.0 [facility] Abdomen/Pelvis W IV Cont ONL Yon 06-12-2025 Abdomen/Pelvis W IV Cont ONLY Normal [facility] Abdomen/Pelvis without Conto n 08-23-2024 Abdomen/Pelvis without Cont Normal [facility] CBC W/Diff, Automatedon - Absolute Lymph 1.35 X10 3/uL Normal 0.83-4.51 [facility] Comment on above: Performed By: #### L 500.4050, L100.0100 ####[facility] [address] [place], [address] Absolute Neut 10.2 X10 3/uL High 2.0-7.7 [facility] Comment on above: Performed By: #### L 500.4050, L100.0100 ####[facility] [address] [place], [address] Basophils/100 WBC (Bld) 0.3 % Normal 0-1 [facility] Comment on above: Performed By: #### L 500.4050, L100.0100 ####[facility] [address] [place], [address] Eosinophils/100 WBC (Bld) 1.0 % Normal 0-5 [facility] Comment on above: Performed By: #### L 500.4050, L100.0100 ####[facility] [address] [place], [address] Erythrocyte distribution width (RBC) [Ratio] 13.5 % Normal 11.6-14.6 [facility] Comment on above: Performed By: #### L 500.4050, L100.0100 ####[facility] [address] [place], [address] Hematocrit (Bld) [Volume fraction] 38.3 % Normal 37-47 [facility] Comment on above: Performed By: #### L 500.4050, L100.0100 ####[facility] [address] [place], [address] Hemoglobin (Bld) [Mass/Vol] 12.7 g/dL Normal 12.0-15.0 [facility] Comment on above: Performed By: #### L 500.4050, L100.0100 ####[facility] [address] [place], [address] IG% 0.500 Normal 0.0-0.9 [facility] Comment on above: Result Comment: IG% - Immature Granulocytes (promyelocytes, myelocytes andmetamyelocytes) > 1% indicates that a LEFT SHIFT is Present. Performed By: #### L 500.4050, L100.0100 ####[facility] [address] [place], [address] Lymphocytes/100 WBC (Bld) 10.7 % Low 19-41 [facility] Comment on above: Performed By: #### L 500.4050, L100.0100 ####[facility] [address] [place], [address] MCH (RBC) [Entitic mass] 31.5 pg Normal 27.0-32.0 [facility] Comment on above: Performed By: #### L 500.4050, L100.0100 ####[facility] [address] [place], [address] MCHC (RBC) [Mass/Vol] 33.2 g/dL Normal 32-36 [facility] Comment on above: Performed By: #### L 500.4050, L100.0100 ####[facility] [address] [place], [address] MCV (RBC) [Entitic vol] 95.0 fL Normal 81-99 [facility] Comment on above: Performed By: #### L 500.4050, L100.0100 ####[facility] [address] [place], [address] Monocytes/100 WBC (Bld) 7.0 % Normal 0-10 [facility] Comment on above: Performed By: #### L 500.4050, L100.0100 ####[facility] [address] [place], [address] Neutrophils/100 WBC (Bld) 80.5 % High 47-70 [facility] Comment on above: Performed By: #### L 500.4050, L100.0100 ####[facility] [address] [place], [address] Nucleated RBC (Bld) [#/Vol] 0 10*3/uL Normal 0-5 [facility] Comment on above: Performed By: #### L 500.4050, L100.0100 ####[facility] [address] [place], [address] Platelet mean volume (Bld) [Entitic vol] 10.4 fL Normal 6.2-12.0 [facility] Comment on above: Performed By: #### L 500.4050, L100.0100 ####[facility] [address] [place], [address] Platelets (Bld) [#/Vol] 274 10*3/uL Normal 150-450 [facility] Comment on above: Performed By: #### L 500.4050, L100.0100 ####[facility] [address] [place], [address] RBC (Bld) [#/Vol] 4.03 10*6/uL Low 4.2-5.4 [facility] Comment on above: Performed By: #### L 500.4050, L100.0100 ####[facility] [address] [place], [address] RDW SD 46.5 fl High 35.1-43.9 [facility] Comment on above: Performed By: #### L 500.4050, L100.0100 ####[facility] [address] [place], [address] WBC (Bld) [#/Vol] 12.7 10*3/uL High 4.4-11.0 [facility] Comment on above: Performed By: #### L 500.4050, L100.0100 ####[facility] [address] [place], [address] Comprehensive Metabolic Prof ilon 08-23-2024 Albumin [Mass/Vol] 4.0 g/dL Normal 3.5-5.0 [facility] Comment on above: Performed By: #### L 500.4050, L100.0100 ####[facility] [address] [place], [address] Albumin/Globulin [Mass ratio] 1.3 {ratio} Normal 0.9-2.4 [facility] Comment on above: Performed By: #### L 500.4050, L100.0100 ####[facility] [address] [place], [address] ALK PHOS 188 U/L High 35-104 [facility] Comment on above: Performed By: #### L 500.4050, L100.0100 ####[facility] [address] [place], [address] ALT [Catalytic activity/Vol] 277 U/L High <=34 [facility] Comment on above: Performed By: #### L 500.4050, L100.0100 ####[facility] [address] [place], [address] AST [Catalytic activity/Vol] 115 U/L High <=31 [facility] Comment on above: Performed By: #### L 500.4050, L100.0100 ####[facility] [address] [place], [address] Bilirubin [Mass/Vol] 0.59 mg/dL Normal 0.00-1.30 [facility] Comment on above: Performed By: #### L 500.4050, L100.0100 ####[facility] [address] [place], [address] BUN/CRE 9.0 RATIO Low 10-20 [facility] Comment on above: Performed By: #### L 500.4050, L100.0100 ####[facility] [address] [place], [address] Calcium [Mass/Vol] 9.1 mg/dL Normal 7.6-11.0 [facility] Comment on above: Performed By: #### L 500.4050, L100.0100 ####[facility] [address] [place], [address] Chloride [Moles/Vol] 100 mmol/L Normal 98-108 [facility] Comment on above: Performed By: #### L 500.4050, L100.0100 ####[facility] [address] [place], [address] CO2 [Moles/Vol] 23.1 mmol/L Normal 21.0-32.0 [facility] Comment on above: Performed By: #### L 500.4050, L100.0100 ####[facility] [address] [place], [address] Creatinine [Mass/Vol] 0.75 mg/dL Normal 0.70-1.20 [facility] Comment on above: Performed By: #### L 500.4050, L100.0100 ####[facility] [address] [place], [address] ECRCL 82.66 ml/min Normal 50-250 [facility] Comment on above: Performed By: #### L 500.4050, L100.0100 ####[facility] [address] [place], [address] GAP 12 Normal 5-15 [facility] Comment on above: Performed By: #### L 500.4050, L100.0100 ####[facility] [address] [place], [address] GFR/1.73 sq M.predicted among non-blacks MDRD (S/P/Bld) [Vol rate/Area] 100 mL/min/{1.73_m2} Normal >60 [facility] Comment on above: Result Comment: mL/m in/1.73m2 CKD-EPI Creatinine Equation (2020) Performed By: #### L 500.4050, L100.0100 ####[facility] [address] [place], [address] Globulin (S) [Mass/Vol] 3.0 g/dL Normal 2.2-4.2 [facility] Comment on above: Performed By: #### L 500.4050, L100.0100 ####[facility] [address] [place], [address] Glucose [Mass/Vol] 104 mg/dL High 70-99 [facility] Comment on above: Performed By: #### L 500.4050, L100.0100 ####[facility] [address] [place], [address] Potassium [Moles/Vol] 4.2 mmol/L Normal 3.3-5.1 [facility] Comment on above: Performed By: #### L 500.4050, L100.0100 ####[facility] [address] [place], [address] Sodium [Moles/Vol] 135 mmol/L Normal 133-145 [facility] Comment on above: Performed By: #### L 500.4050, L100.0100 ####[facility] [address] [place], [address] T PROT 7.0 g/dL Normal 5.9-8.4 [facility] Comment on above: Performed By: #### L 500.4050, L100.0100 ####[facility] [address] [place], [address] Urea nitrogen [Mass/Vol] 7 mg/dL Normal 4-19 [facility] Comment on above: Performed By: #### L 500.4050, L100.0100 ####[facility] [address] [place], [address] CBC W/Diff, Automatedon 08-12 Absolute Lymph 1.39 X10 3/uL Normal 0.83-4.51 [facility] Comment on above: Performed By: #### L 500.4050, L100.0100 ####[facility] [address] [place], [address] Absolute Neut 8.6 X10 3/uL High 2.0-7.7 [facility] Comment on above: Performed By: #### L 500.4050, L100.0100 ####[facility] [address] [place], [address] Basophils/100 WBC (Bld) 0.5 % Normal 0-1 [facility] Comment on above: Performed By: #### L 500.4050, L100.0100 ####[facility] [address] [place], [address] Eosinophils/100 WBC (Bld) 0.8 % Normal 0-5 [facility] Comment on above: Performed By: #### L 500.4050, L100.0100 ####[facility] [address] [place], [address] Erythrocyte distribution width (RBC) [Ratio] 13.8 % Normal 11.6-14.6 [facility] Comment on above: Performed By: #### L 500.4050, L100.0100 ####[facility] [address] [place], [address] Hematocrit (Bld) [Volume fraction] 39.3 % Normal 37-47 [facility] Comment on above: Performed By: #### L 500.4050, L100.0100 ####[facility] [address] [place], [address] Hemoglobin (Bld) [Mass/Vol] 12.9 g/dL Normal 12.0-15.0 [facility] Comment on above: Performed By: #### L 500.4050, L100.0100 ####[facility] [address] [place], [address] IG% 0.500 Normal 0.0-0.9 [facility] Comment on above: Result Comment: IG% - Immature Granulocytes (promyelocytes, myelocytes andmetamyelocytes) > 1% indicates that a LEFT SHIFT is Present. Performed By: #### L 500.4050, L100.0100 ####[facility] [address] [place], [address] Lymphocytes/100 WBC (Bld) 12.5 % Low 19-41 [facility] Comment on above: Performed By: #### L 500.4050, L100.0100 ####[facility] [address] [place], [address] MCH (RBC) [Entitic mass] 31.3 pg Normal 27.0-32.0 [facility] Comment on above: Performed By: #### L 500.4050, L100.0100 ####[facility] [address] [place], [address] MCHC (RBC) [Mass/Vol] 32.8 g/dL Normal 32-36 [facility] Comment on above: Performed By: #### L 500.4050, L100.0100 ####[facility] [address] [place], [address] MCV (RBC) [Entitic vol] 95.4 fL Normal 81-99 [facility] Comment on above: Performed By: #### L 500.4050, L100.0100 ####[facility] [address] [place], [address] Monocytes/100 WBC (Bld) 8.0 % Normal 0-10 [facility] Comment on above: Performed By: #### L 500.4050, L100.0100 ####[facility] [address] [place], [address] Neutrophils/100 WBC (Bld) 77.7 % High 47-70 [facility] Comment on above: Performed By: #### L 500.4050, L100.0100 ####[facility] [address] [place], [address] Nucleated RBC (Bld) [#/Vol] 0 10*3/uL Normal 0-5 [facility] Comment on above: Performed By: #### L 500.4050, L100.0100 ####[facility] [address] [place], [address] Platelet mean volume (Bld) [Entitic vol] 10.0 fL Normal 6.2-12.0 [facility] Comment on above: Performed By: #### L 500.4050, L100.0100 ####[facility] [address] [place], [address] Platelets (Bld) [#/Vol] 291 10*3/uL Normal 150-450 [facility] Comment on above: Performed By: #### L 500.4050, L100.0100 ####[facility] [address] [place], [address] RBC (Bld) [#/Vol] 4.12 10*6/uL Low 4.2-5.4 [facility] Comment on above: Performed By: #### L 500.4050, L100.0100 ####[facility] [address] [place], [address] RDW SD 48.1 fl High 35.1-43.9 [facility] Comment on above: Performed By: #### L 500.4050, L100.0100 ####[facility] [address] [place], [address] WBC (Bld) [#/Vol] 11.1 10*3/uL High 4.4-11.0 [facility] Comment on above: Performed By: #### L 500.4050, L100.0100 ####[facility] [address] [place], [address] Comprehensive Metabolic Prof il 08-22-2024 Albumin [Mass/Vol] 4.0 g/dL Normal 3.5-5.0 [facility] Comment on above: Performed By: #### L 500.4050, L100.0100 ####[facility] [address] [place], [address] Albumin/Globulin [Mass ratio] 1.4 {ratio} Normal 0.9-2.4 [facility] Comment on above: Performed By: #### L 500.4050, L100.0100 ####[facility] [address] [place], [address] ALK PHOS 199 U/L High 35-104 [facility] Comment on above: Performed By: #### L 500.4050, L100.0100 ####[facility] [address] [place], [address] ALT [Catalytic activity/Vol] 368 U/L High <=34 [facility] Comment on above: Performed By: #### L 500.4050, L100.0100 ####[facility] [address] [place], [address] AST [Catalytic activity/Vol] 284 U/L High <=31 [facility] Comment on above: Performed By: #### L 500.4050, L100.0100 ####[facility] [address] [place], [address] Bilirubin [Mass/Vol] 0.89 mg/dL Normal 0.00-1.30 [facility] Comment on above: Performed By: #### L 500.4050, L100.0100 ####[facility] [address] [place], [address] BUN/CRE 12.0 RATIO Normal 10-20 [facility] Comment on above: Performed By: #### L 500.4050, L100.0100 ####[facility] [address] [place], [address] Calcium [Mass/Vol] 9.5 mg/dL Normal 7.6-11.0 [facility] Comment on above: Performed By: #### L 500.4050, L100.0100 ####[facility] [address] [place], [address] Chloride [Moles/Vol] 101 mmol/L Normal 98-108 [facility] Comment on above: Performed By: #### L 500.4050, L100.0100 ####[facility] [address] [place], [address] CO2 [Moles/Vol] 22.1 mmol/L Normal 21.0-32.0 [facility] Comment on above: Performed By: #### L 500.4050, L100.0100 ####[facility] [address] [place], [address] Creatinine [Mass/Vol] 0.98 mg/dL Normal 0.70-1.20 [facility] Comment on above: Performed By: #### L 500.4050, L100.0100 ####[facility] [address] [place], [address] ECRCL 63.26 ml/min Normal 50-250 [facility] Comment on above: Performed By: #### L 500.4050, L100.0100 ####[facility] [address] [place], [address] GAP 12 Normal 5-15 [facility] Comment on above: Performed By: #### L 500.4050, L100.0100 ####[facility] [address] [place], [address] GFR/1.73 sq M.predicted among non-blacks MDRD (S/P/Bld) [Vol rate/Area] 73 mL/min/{1.73_m2} Normal >60 [facility] Comment on above: Result Comment: mL/m in/1.73m2 CKD-EPI Creatinine Equation (2020) Performed By: #### L 500.4050, L100.0100 ####[facility] [address] [place], [address] Globulin (S) [Mass/Vol] 2.8 g/dL Normal 2.2-4.2 [facility] Comment on above: Performed By: #### L 500.4050, L100.0100 ####[facility] [address] [place], [address] Glucose [Mass/Vol] 96 mg/dL Normal 70-99 [facility] Comment on above: Performed By: #### L 500.4050, L100.0100 ####[facility] [address] [place], [address] Potassium [Moles/Vol] 4.1 mmol/L Normal 3.3-5.1 [facility] Comment on above: Performed By: #### L 500.4050, L100.0100 ####[facility] [address] [place], [address] Sodium [Moles/Vol] 135 mmol/L Normal 133-145 [facility] Comment on above: Performed By: #### L 500.4050, L100.0100 ####[facility] [address] [place], [address] T PROT 6.9 g/dL Normal 5.9-8.4 [facility] Comment on above: Performed By: #### L 500.4050, L100.0100 ####[facility] [address] [place], [address] Urea nitrogen [Mass/Vol] 12 mg/dL Normal 4-19 [facility] Comment on above: Performed By: #### L 500.4050, L100.0100 ####[facility] [address] [place], [address] MR/[id number] 08-22-2024 MR/POSTOPAN2 Normal [facility] CBC-Complete Blood Cnt No Di ffon 08-21-2024 Erythrocyte distribution width (RBC) [Ratio] 13.7 % Normal 11.6-14.6 [facility] Comment on above: Performed By: #### L 100.0500, L500.4050 ####[facility] [address] [place], [address] Hematocrit (Bld) [Volume fraction] 39.1 % Normal 37-47 [facility] Comment on above: Performed By: #### L 100.0500, L500.4050 ####[facility] [address] [place], [address] Hemoglobin (Bld) [Mass/Vol] 12.6 g/dL Normal 12.0-15.0 [facility] Comment on above: Performed By: #### L 100.0500, L500.4050 ####[facility] [address] [place], [address] MCH (RBC) [Entitic mass] 31.2 pg Normal 27.0-32.0 [facility] Comment on above: Performed By: #### L 100.0500, L500.4050 ####[facility] [address] [place], [address] MCHC (RBC) [Mass/Vol] 32.2 g/dL Normal 32-36 [facility] Comment on above: Performed By: #### L 100.0500, L500.4050 ####[facility] [address] [place], [address] MCV (RBC) [Entitic vol] 96.8 fL Normal 81-99 [facility] Comment on above: Performed By: #### L 100.0500, L500.4050 ####[facility] [address] [place], [address] Platelet mean volume (Bld) [Entitic vol] 10.4 fL Normal 6.2-12.0 [facility] Comment on above: Performed By: #### L 100.0500, L500.4050 ####[facility] [address] [place], [address] Platelets (Bld) [#/Vol] 402 10*3/uL Normal 150-450 [facility] Comment on above: Performed By: #### L 100.0500, L500.4050 ####[facility] [address] [place], [address] RBC (Bld) [#/Vol] 4.04 10*6/uL Low 4.2-5.4 [facility] Comment on above: Performed By: #### L 100.0500, L500.4050 ####[facility] [address] [place], [address] RDW SD 48.3 fl High 35.1-43.9 [facility] Comment on above: Performed By: #### L 100.0500, L500.4050 ####[facility] [address] [place], [address] WBC (Bld) [#/Vol] 10.5 10*3/uL Normal 4.4-11.0 [facility] Comment on above: Performed By: #### L 100.0500, L500.4050 ####[facility] [address] [place], [address] Comprehensive Metabolic Prof ilon 08-21-2024 Albumin [Mass/Vol] 4.2 g/dL Normal 3.5-5.0 [facility] Comment on above: Performed By: #### L 100.0500, L500.4050 ####[facility] [address] [place], [address] Albumin/Globulin [Mass ratio] 1.4 {ratio} Normal 0.9-2.4 [facility] Comment on above: Performed By: #### L 100.0500, L500.4050 ####[facility] [address] [place], [address] ALK PHOS 197 U/L High 35-104 [facility] Comment on above: Performed By: #### L 100.0500, L500.4050 ####[facility] [address] [place], [address] ALT [Catalytic activity/Vol] 383 U/L High <=34 [facility] Comment on above: Performed By: #### L 100.0500, L500.4050 ####[facility] [address] [place], [address] AST [Catalytic activity/Vol] 535 U/L High <=31 [facility] Comment on above: Performed By: #### L 100.0500, L500.4050 ####[facility] [address] [place], [address] Bilirubin [Mass/Vol] 0.82 mg/dL Normal 0.00-1.30 [facility] Comment on above: Performed By: #### L 100.0500, L500.4050 ####[facility] [address] [place], [address] BUN/CRE 13.5 RATIO Normal 10-20 [facility] Comment on above: Performed By: #### L 100.0500, L500.4050 ####[facility] [address] [place], [address] Calcium [Mass/Vol] 9.5 mg/dL Normal 7.6-11.0 [facility] Comment on above: Performed By: #### L 100.0500, L500.4050 ####[facility] [address] [place], [address] Chloride [Moles/Vol] 100 mmol/L Normal 98-108 [facility] Comment on above: Performed By: #### L 100.0500, L500.4050 ####[facility] [address] [place], [address] CO2 [Moles/Vol] 22.0 mmol/L Normal 21.0-32.0 [facility] Comment on above: Performed By: #### L 100.0500, L500.4050 ####[facility] [address] [place], [address] Creatinine [Mass/Vol] 1.00 mg/dL Normal 0.70-1.20 [facility] Comment on above: Performed By: #### L 100.0500, L500.4050 ####[facility] [address] [place], [address] ECRCL 61.99 ml/min Normal 50-250 [facility] Comment on above: Performed By: #### L 100.0500, L500.4050 ####[facility] [address] [place], [address] GAP 13 Normal 5-15 [facility] Comment on above: Performed By: #### L 100.0500, L500.4050 ####[facility] [address] [place], [address] GFR/1.73 sq M.predicted among non-blacks MDRD (S/P/Bld) [Vol rate/Area] 71 mL/min/{1.73_m2} Normal >60 [facility] Comment on above: Result Comment: mL/m in/1.73m2 CKD-EPI Creatinine Equation (2020) Performed By: #### L 100.0500, L500.4050 ####[facility] [address] [place], [address] Globulin (S) [Mass/Vol] 2.9 g/dL Normal 2.2-4.2 [facility] Comment on above: Performed By: #### L 100.0500, L500.4050 ####[facility] [address] [place], [address] Glucose [Mass/Vol] 83 mg/dL Normal 70-99 [facility] Comment on above: Performed By: #### L 100.0500, L500.4050 ####[facility] [address] [place], [address] Potassium [Moles/Vol] 4.5 mmol/L Normal 3.3-5.1 [facility] Comment on above: Performed By: #### L 100.0500, L500.4050 ####[facility] [address] [place], [address] Sodium [Moles/Vol] 135 mmol/L Normal 133-145 [facility] Comment on above: Performed By: #### L 100.0500, L500.4050 ####[facility] [address] [place], [address] T PROT 7.1 g/dL Normal 5.9-8.4 [facility] Comment on above: Performed By: #### L 100.0500, L500.4050 ####[facility] [address] [place], [address] Urea nitrogen [Mass/Vol] 14 mg/dL Normal 4-19 [facility] Comment on above: Performed By: #### L 100.0500, L500.4050 ####[facility] [address] [place], [address] ERCP Biliary/Pancreason 06- ERCP Biliary/Pancreas Normal [facility] ERCP Reporton 08-21-2024 ERCP Report Normal [facility] Electrocardiogram reportOrde red By: Mercy Bishop on 08-21-2024 EKG study [facility] Work Phone: MR/POSTOP.ANEon 08-21-2024 MR/POSTOP.ANE Normal [facility] Special Stain Group IIon Special Stain Group II Normal [facility] Comment on above: Performed By: #### P SSII ####[facility] [address] [place], [address] 12 Lead EKGon 08-20-2024 12 Lead EKG Normal [facility] Absolute lymphocyte countOrd ered By: ED PROVIDER on 08-20-2024 Lymphocytes Auto (Unsp spec) [#/Vol] 1.29 10*3/uL 0.83-4.51 [facility] Anion gap in Serum or Plasma Ordered By: Simona Fernandez on 08-20-2024 Anion gap [Moles/Vol] 13 mmol/L 5-15 [facility] Automated lymphocyte count a s percentage of total leukocytesOrdered By: ED PROVIDER on 08-20-2024 Lymphocytes/100 WBC Auto (Unsp spec) 10.9 % Low 19-41 [facility] BUN/creatinine ratioOrdered By: Simona Fernandez on 08-20-2024 Urea nitrogen/Creatinine [Mass ratio] 16.5 mg/mg 10-20 [facility] Basophil percentageOrdered B y: ED PROVIDER on 08-20-2024 Basophils/100 WBC (Bld) 0.4 % 0-1 [facility] Bilirubin Test strip Ql (U)O rdered By: Simona Fernandez on 08-20-2024 Bilirubin Ql (U) Negative Negative [facility] Bilirubin, totalOrdered By: Simona Fernandez on 08-20-2024 Bilirubin [Mass/Vol] 0.67 mg/dL 0.00-1.30 [facility] CBC W/Diff, Automatedon Absolute Lymph 1.29 X10 3/uL Normal 0.83-4.51 [facility] Comment on above: Performed By: #### L 100.0100, L501.2450, L700.6800, L500.4050 ####[facility] [address] [place], [address] Absolute Neut 9.9 X10 3/uL High 2.0-7.7 [facility] Comment on above: Performed By: #### L 100.0100, L501.2450, L700.6800, L500.4050 ####[facility] [address] [place], [address] Basophils/100 WBC (Bld) 0.4 % Normal 0-1 [facility] Comment on above: Performed By: #### L 100.0100, L501.2450, L700.6800, L500.4050 ####[facility] [address] [place], [address] Eosinophils/100 WBC (Bld) 0.2 % Normal 0-5 [facility] Comment on above: Performed By: #### L 100.0100, L501.2450, L700.6800, L500.4050 ####[facility] [address] [place], [address] Erythrocyte distribution width (RBC) [Ratio] 13.6 % Normal 11.6-14.6 [facility] Comment on above: Performed By: #### L 100.0100, L501.2450, L700.6800, L500.4050 ####[facility] [address] [place], [address] Hematocrit (Bld) [Volume fraction] 38.1 % Normal 37-47 [facility] Comment on above: Performed By: #### L 100.0100, L501.2450, L700.6800, L500.4050 ####[facility] [address] [place], [address] Hemoglobin (Bld) [Mass/Vol] 12.6 g/dL Normal 12.0-15.0 [facility] Comment on above: Performed By: #### L 100.0100, L501.2450, L700.6800, L500.4050 ####[facility] [address] [place], [address] IG% 0.600 Normal 0.0-0.9 [facility] Comment on above: Result Comment: IG% - Immature Granulocytes (promyelocytes, myelocytes andmetamyelocytes) > 1% indicates that a LEFT SHIFT is Present. Performed By: #### L 100.0100, L501.2450, L700.6800, L500.4050 ####[facility] [address] [place], [address] Lymphocytes/100 WBC (Bld) 10.9 % Low 19-41 [facility] Comment on above: Performed By: #### L 100.0100, L501.2450, L700.6800, L500.4050 ####[facility] [address] [place], [address] MCH (RBC) [Entitic mass] 31.7 pg Normal 27.0-32.0 [facility] Comment on above: Performed By: #### L 100.0100, L501.2450, L700.6800, L500.4050 ####[facility] [address] [place], [address] MCHC (RBC) [Mass/Vol] 33.1 g/dL Normal 32-36 [facility] Comment on above: Performed By: #### L 100.0100, L501.2450, L700.6800, L500.4050 ####[facility] [address] [place], [address] MCV (RBC) [Entitic vol] 96.0 fL Normal 81-99 [facility] Comment on above: Performed By: #### L 100.0100, L501.2450, L700.6800, L500.4050 ####[facility] [address] [place], [address] Monocytes/100 WBC (Bld) 4.6 % Normal 0-10 [facility] Comment on above: Performed By: #### L 100.0100, L501.2450, L700.6800, L500.4050 ####[facility] [address] [place], [address] Neutrophils/100 WBC (Bld) 83.3 % High 47-70 [facility] Comment on above: Performed By: #### L 100.0100, L501.2450, L700.6800, L500.4050 ####[facility] [address] [place], [address] Nucleated RBC (Bld) [#/Vol] 0 10*3/uL Normal 0-5 [facility] Comment on above: Performed By: #### L 100.0100, L501.2450, L700.6800, L500.4050 ####[facility] [address] [place], [address] Platelet mean volume (Bld) [Entitic vol] 9.9 fL Normal 6.2-12.0 [facility] Comment on above: Performed By: #### L 100.0100, L501.2450, L700.6800, L500.4050 ####[facility] [address] [place], [address] Platelets (Bld) [#/Vol] 373 10*3/uL Normal 150-450 [facility] Comment on above: Performed By: #### L 100.0100, L501.2450, L700.6800, L500.4050 ####[facility] [address] [place], [address] RBC (Bld) [#/Vol] 3.97 10*6/uL Low 4.2-5.4 [facility] Comment on above: Performed By: #### L 100.0100, L501.2450, L700.6800, L500.4050 ####[facility] [address] [place], [address] RDW SD 47.5 fl High 35.1-43.9 [facility] Comment on above: Performed By: #### L 100.0100, L501.2450, L700.6800, L500.4050 ####[facility] [address] [place], [address] WBC (Bld) [#/Vol] 11.9 10*3/uL High 4.4-11.0 [facility] Comment on above: Performed By: #### L 100.0100, L501.2450, L700.6800, L500.4050 ####[facility] [address] [place], [address] Carbon dioxide, total [Moles /volume] in Central venous bloodOrdered By: Simona Fernandez on 08-20-2024 CO2 [Moles/Vol] 19.0 mmol/L Low 21.0-32.0 [facility] Chest PA and Lateralon 08-20 Chest PA and Lateral Normal [facility] Chloride assayOrdered By: Demetrio Fernandez on 08-20-2024 Chloride [Moles/Vol] 104 mmol/L 98-108 [facility] Comprehensive Metabolic Prof ilon 08-20-2024 Albumin [Mass/Vol] 4.0 g/dL Normal 3.5-5.0 [facility] Comment on above: Performed By: #### L 100.0100, L501.2450, L700.6800, L500.4050 ####[facility] [address] [place], [address] Albumin/Globulin [Mass ratio] 1.5 {ratio} Normal 0.9-2.4 [facility] Comment on above: Performed By: #### L 100.0100, L501.2450, L700.6800, L500.4050 ####[facility] [address] [place], [address] ALK PHOS 182 U/L High 35-104 [facility] Comment on above: Performed By: #### L 100.0100, L501.2450, L700.6800, L500.4050 ####[facility] [address] [place], [address] ALT [Catalytic activity/Vol] 103 U/L High <=34 [facility] Comment on above: Performed By: #### L 100.0100, L501.2450, L700.6800, L500.4050 ####[facility] [address] [place], [address] AST [Catalytic activity/Vol] 115 U/L High <=31 [facility] Comment on above: Performed By: #### L 100.0100, L501.2450, L700.6800, L500.4050 ####[facility] [address] [place], [address] Bilirubin [Mass/Vol] 0.67 mg/dL Normal 0.00-1.30 [facility] Comment on above: Performed By: #### L 100.0100, L501.2450, L700.6800, L500.4050 ####[facility] [address] [place], [address] BUN/CRE 16.5 RATIO Normal 10-20 [facility] Comment on above: Performed By: #### L 100.0100, L501.2450, L700.6800, L500.4050 ####[facility] [address] [place], [address] Calcium [Mass/Vol] 9.1 mg/dL Normal 7.6-11.0 [facility] Comment on above: Performed By: #### L 100.0100, L501.2450, L700.6800, L500.4050 ####[facility] [address] [place], [address] Chloride [Moles/Vol] 104 mmol/L Normal 98-108 [facility] Comment on above: Performed By: #### L 100.0100, L501.2450, L700.6800, L500.4050 ####[facility] [address] [place], [address] CO2 [Moles/Vol] 19.0 mmol/L Low 21.0-32.0 [facility] Comment on above: Performed By: #### L 100.0100, L501.2450, L700.6800, L500.4050 ####[facility] [address] [place], [address] Creatinine [Mass/Vol] 0.97 mg/dL Normal 0.70-1.20 [facility] Comment on above: Performed By: #### L 100.0100, L501.2450, L700.6800, L500.4050 ####[facility] [address] [place], [address] ECRCL 63.91 ml/min Normal 50-250 [facility] Comment on above: Performed By: #### L 100.0100, L501.2450, L700.6800, L500.4050 ####[facility] [address] [place], [address] GAP 13 Normal 5-15 [facility] Comment on above: Performed By: #### L 100.0100, L501.2450, L700.6800, L500.4050 ####[facility] [address] [place], [address] GFR/1.73 sq M.predicted among non-blacks MDRD (S/P/Bld) [Vol rate/Area] 74 mL/min/{1.73_m2} Normal >60 [facility] Comment on above: Result Comment: mL/m in/1.73m2 CKD-EPI Creatinine Equation (2020) Performed By: #### L 100.0100, L501.2450, L700.6800, L500.4050 ####[facility] [address] [place], [address] Globulin (S) [Mass/Vol] 2.7 g/dL Normal 2.2-4.2 [facility] Comment on above: Performed By: #### L 100.0100, L501.2450, L700.6800, L500.4050 ####[facility] [address] [place], [address] Glucose [Mass/Vol] 118 mg/dL High 70-99 [facility] Comment on above: Performed By: #### L 100.0100, L501.2450, L700.6800, L500.4050 ####[facility] [address] [place], [address] Potassium [Moles/Vol] 4.9 mmol/L Normal 3.3-5.1 [facility] Comment on above: Performed By: #### L 100.0100, L501.2450, L700.6800, L500.4050 ####[facility] [address] [place], [address] Sodium [Moles/Vol] 136 mmol/L Normal 133-145 [facility] Comment on above: Performed By: #### L 100.0100, L501.2450, L700.6800, L500.4050 ####[facility] [address] [place], [address] T PROT 6.6 g/dL Normal 5.9-8.4 [facility] Comment on above: Performed By: #### L 100.0100, L501.2450, L700.6800, L500.4050 ####[facility] [address] [place], [address] Urea nitrogen [Mass/Vol] 16 mg/dL Normal 4-19 [facility] Comment on above: Performed By: #### L 100.0100, L501.2450, L700.6800, L500.4050 ####[facility] [address] [place], [address] Emergency Department Summary on 08-20-2024 Emergency Department Summary Normal [facility] Eosinophil percentageOrdered By: ED PROVIDER on 08-20-2024 Eosinophils/100 WBC (Bld) 0.2 % 0-5 [facility] Erythrocyte distribution wid th ratioOrdered By: ED PROVIDER on 08-20-2024 Erythrocyte distribution width (RBC) [Ratio] 13.6 % 11.6-14.6 [facility] Erythrocyte distribution wid th standard deviationOrdered By: ED PROVIDER on 08-20-2024 Erythrocyte distribution width (RBC) [Ratio] 47.5 fl High 35.1-43.9 [facility] Glomerular filtration rate ( GFR) estimation/1.73 sq m using serum, plasma, or whole bOrdered By: Simona Fernandez on 08-20-2024 GFR/1.73 sq M.predicted among non-blacks MDRD (S/P/Bld) [Vol rate/Area] 74 mL/min/{1.73_m2} >60 [facility] H AND P Exam - Hospitaliston 08-20-2024 H&P Exam - Hospitalist Normal [facility] Hematocrit Auto (Bld) [Volum e fraction]Ordered By: ED PROVIDER on 08-20-2024 Hematocrit (Bld) [Volume fraction] 38.1 % 37-47 [facility] Hemoglobin measurementOrdere d By: ED PROVIDER on 08-20-2024 Hemoglobin (Bld) [Mass/Vol] 12.6 g/dL 12.0-15.0 [facility] Immature granulocytes/100 WB C Auto (Bld)Ordered By: ED PROVIDER on 08-20-2024 Immature granulocytes/100 WBC (Bld) 0.600 % 0.0-0.9 [facility] Ketones Test strip Ql (U)Ord ered By: Simona Fernandez on 08-20-2024 Ketones Ql (U) Negative Negative [facility] L503.7505on 08-20-2024 Natriuretic peptide B (Bld) [Mass/Vol] 3711 pg/mL High <=450 [facility] Comment on above: Result Comment: Hear t Failure Unlikely: < 300 pg/mLHeart Failure Likely< 50 Years: > 450 pg/mL50-75 Years: > 900 pg/mL>75 Years: > 1800 pg/mL Performed By: #### L 503.7509 ####[facility] [address] [place], [place], [address] Lipaseon 08-20-2024 Lipase [Catalytic activity/Vol] 11 U/L Low 13-75 [facility] Comment on above: Result Comment: Liam rader note:LIPASE revised reference range effective 22.New Lipase methodology. Expected to produce lower valuesthan the previous assay method.NEW Reference Range: 13 - 75 U/L Performed By: #### L 100.0100, L501.2450, L700.6800, L500.4050 ####[facility] [address] [place], [address] Liveron 08-20-2024 Liver Normal [facility] MCV (mean corpuscular volume ) determinationOrdered By: ED PROVIDER on 08-20-2024 MCV (RBC) [Entitic vol] 96.0 fL 81-99 [facility] MR/CON.PCM.GIon 08-20-2024 MR/CON.PCM.GI Normal [facility] Mean corpuscular hemoglobin (MCH) determinationOrdered By: ED PROVIDER on 08-20-2024 MCH (RBC) [Entitic mass] 31.7 pg 27.0-32.0 [facility] Monocyte percentageOrdered B y: ED PROVIDER on 08-20-2024 Monocytes/100 WBC (Bld) 4.6 % 0-10 [facility] Mucus LM Ql (Urine sed)Order ed By: Simona Fernandez on 08-20-2024 Mucus Ql (Urine sed) 0 SEEN /hpf [facility] Natriuretic peptide.B prohor abbey N-Terminal [Mass/volume] in Serum or PlasmaOrdered By: Simona Fernandez on 08-20-2024 Natriuretic peptide.B prohormone N-Terminal [Mass/Vol] 3711 pg/mL High <450 [facility] Neutrophil percentageOrdered By: ED PROVIDER on 08-20-2024 Neutrophils/100 WBC (Bld) 83.3 % High 47-70 [facility] Nitrite Test strip Ql (U)Ord ered By: Simona Fernandez on 08-20-2024 Nitrite Ql (U) Negative Negative [facility] No Panel InformationOrdered By: Simona Fernandez on 08-20-2024 115 U/L High <32 [facility] Platelet countOrdered By: ED PROVIDER on 08-20-2024 Platelets (Bld) [#/Vol] 373 10*3/uL 150-450 [facility] Potassium measurement (mass/ volume)Ordered By: Simona Fernandez on 08-20-2024 Potassium (Unsp spec) [Mass/Vol] 4.9 mmol/L 3.3-5.1 [facility] ,Serum,hCG Quali.on 08-20-2024 HCG, SERUM QUAL Negative Normal [facility] Comment on above: Performed By: #### L 100.0100, L501.2450, L700.6800, L500.4050 ####[facility] [address] [place], [address] ,Urineon 08-20-2024 Beta HCG ( test) Ql (U) Normal [facility] Comment on above: Order Comment: Femal es 12-55 or menstruation outside age range Result Comment: PREG SERUM ALREADY COMPLETED Performed By: #### L 400.7600 ####[facility] [address] [place], [address] INTERNAL QC OK? Normal [facility] Comment on above: Order Comment: Femal es 12-55 or menstruation outside age range Result Comment: PREG SERUM ALREADY COMPLETED Performed By: #### L 400.7600 ####[facility] [address] [place], [place], [address] RECORD KIT LOT# Normal [facility] Comment on above: Order Comment: Femal es 12-55 or menstruation outside age range Result Comment: PREG SERUM ALREADY COMPLETED Performed By: #### L 400.7600 ####[facility] [address] [place], [place], [address] Protein Test strip Ql (U)Ord ered By: Simona Fernandez on 08-20-2024 Protein Ql (U) 15 mg/dl High Negative [facility] RBC Auto (Bld) [#/Vol]Ordere d By: ED PROVIDER on 08-20-2024 RBC (Bld) [#/Vol] 3.97 10*6/uL Low 4.2-5.4 [facility] Serum beta-hCG test, qualita tiveOrdered By: Simona Fernandez on 08-20-2024 Beta HCG ( test) Ql Negative [facility] Serum creatinine measurement (mass/volume)Ordered By: Simona Fernandez on 08-20-2024 Creatinine [Mass/Vol] 0.97 mg/dL 0.70-1.20 [facility] Serum globulin measurementOr dered By: Simona Fernandez on 08-20-2024 Globulin (S) [Mass/Vol] 2.7 g/dL 2.2-4.2 [facility] Serum glucose measurement (m ass/volume)Ordered By: Simona Fernandez on 08-20-2024 Glucose [Mass/Vol] 118 mg/dL High 70-99 [facility] Serum or plasma alanine hair otransferase (ALT) measurementOrdered By: Simona Fernandez on 08-20-2024 ALT [Catalytic activity/Vol] 103 U/L High <35 [facility] Serum or plasma albumin leslie urement (mass/volume)Ordered By: Simona Fernandez on 08-20-2024 Albumin [Mass/Vol] 4.0 g/dL 3.5-5.0 [facility] Serum or plasma albumin/glob ulin mass ratioOrdered By: Simona Fernandez on 08-20-2024 Albumin/Globulin [Mass ratio] 1.5 {ratio} 0.9-2.4 [facility] Serum or plasma alkaline delfin sphatase measurementOrdered By: Simona Fernandez on 08-20-2024 ALP [Catalytic activity/Vol] 182 U/L High 35-104 [facility] Serum or plasma calcium leslie urement (mass/volume)Ordered By: Simona Fernandez on 08-20-2024 Calcium [Mass/Vol] 9.1 mg/dL 7.6-11.0 [facility] Serum or plasma urea nitroge n measurement (mass/volume)Ordered By: Simona Fernandez on 08-20-2024 Urea nitrogen [Mass/Vol] 16 mg/dL 4-19 [facility] Sodium levelOrdered By: Shanika Fernandez on 08-20-2024 Sodium [Moles/Vol] 136 mmol/L 133-145 [facility] Squamous epithelial cells de tection in urine sediment by light microscopyOrdered By: Simona Fernandez on 08-20-2024 Epithelial cells.squamous LM Ql (Urine sed) 0-5 SEEN /hpf 5-10 [facility] Total proteinOrdered By: Cherri Fernandez on 08-20-2024 Protein [Mass/Vol] 6.6 g/dL 5.9-8.4 [facility] Urinalysis, Completeon 08-20 EPI,SQUAMOUS 0-5 SEEN Normal 5-10 [facility] Comment on above: Order Comment: CLEAN CATCH Performed By: #### L 400.0001 ####[facility] [address] [place], [address] RBC 0-5 SEEN Normal 0-5 [facility] Comment on above: Order Comment: CLEAN CATCH Performed By: #### L 400.0001 ####[facility] [address] [place], [address] WBC 0-5 SEEN Normal 0-5 [facility] Comment on above: Order Comment: CLEAN CATCH Performed By: #### L 400.0001 ####[facility] [address] [place], [address] BACTERIA 0 SEEN Normal None Seen [facility] Comment on above: Order Comment: CLEAN CATCH Performed By: #### L 400.0001 ####[facility] [address] [place], [address] Mucus Ql (Urine sed) 0 SEEN Normal [facility] Comment on above: Order Comment: CLEAN CATCH Performed By: #### L 400.0001 ####[facility] [address] [place], [address] Urine clarityOrdered By: Cherri Fernandez on 08-20-2024 Clarity (U) Clear Clear [facility] Urine color determinationOrd ered By: Simona Fernandez on 08-20-2024 Color (U) Straw Yellow [facility] Urine glucose detectionOrder ed By: Simona Fernandez on 08-20-2024 Glucose Ql (U) Normal mg/dl Normal [facility] Urine leukocyte esterase det ection by dipstickOrdered By: Simona Fernandez on 08-20-2024 Leukocyte esterase Test strip Ql (U) Negative Negative [facility] Urine pHOrdered By: Simona lucio on 08-20-2024 pH (U) 6.5 [pH] 5.0 - 8.0 [facility] Urine sediment bacteria coun t by microscopy (number/high power field)Ordered By: Simona Fernandez on 08-20-2024 Bacteria LM.HPF (Urine sed) [#/Area] 0 /[HPF] None Seen [facility] Urine specific gravity measu rementOrdered By: Simona Fernandez on 08-20-2024 Specific gravity (U) [Rel density] 1.010 1.002-1.03 0 [facility] Urine urobilinogen measureme ntOrdered By: Simona Fernandez on 08-20-2024 Urobilinogen Ql (U) Normal mg/dl Normal [facility] White blood cell (WBC) count Ordered By: ED PROVIDER on 08-20-2024 WBC (Bld) [#/Vol] 11.9 10*3/uL High 4.4-11.0 [facility] White blood cell countOrdere d By: Simona Fernandez on 08-20-2024 White blood cell count 0-5 SEEN /hpf 0-5 [facility] Ova and Parasites 8623on OP Normal [facility] Comment on above: Performed By: #### L 7000.0700, M100.6796, M100.0605, M100.637, L7400.3300, M600.5000 ####[facility] [address] [place], [address] ECG 12-LEADon 08-15-2024 ECG 12-LEAD Ventricular Rate 60 Atrial Rate 60 P-R Interval 170 QRS Duration 102 Q-T Interval 436 QTC Calculation(Bazett) 436 P [place] 17 R [place] -73 T [place] 83 QRS Count 10 Q Onset 205 P Onset 120 P Offset 185 T Offset 423 QTC Fredericia 436 Diagnosis Normal sinus rhythm Possible Left atrial enlargement Incomplete right bundle branch block Left anterior fascicular block Septal infarct , age undetermined Abnormal ECG When compared with ECG of 22-FEB-2007 11:19, Significant changes have occurred Normal [facility] SANDR[facility] Comprehensive Panelon ANTI-DNA (DS)AB <1 Normal 0-9 [facility] Comment on above: Result Comment: Nega tive <5 Equivocal 5 - 9 Positive >9 Performed By: #### L 503.5510, L3200.0500, L3100.5440, L5500.0410, L3100.3425, L503.6150, L3300.0100, L3100.1850, L504.2610, L100.9950, L3300.1200, L100.0100, L501.9520, L300.3900, L3410.2400, L3200.1100, L3100.6900, L101.9900, L500.4050, L501.6710, L501.9985, L3400.0700, L503.6550, L3300.1800 ####[facility] [address] [facility] [place], [address] ANTI-SS-A < 0.2 Normal 0.0-0.9 [facility] Comment on above: Performed By: #### L 503.5510, L3200.0500, L3100.5440, L5500.0410, L3100.3425, L503.6150, L3300.0100, L3100.1850, L504.2610, L100.9950, L3300.1200, L100.0100, L501.9520, L300.3900, L3410.2400, L3200.1100, L3100.6900, L101.9900, L500.4050, L501.6710, L501.9985, L3400.0700, L503.6550, L3300.1800 ####[facility] [address] [place], [address] ANTI-SS-B 0.2 AI Normal 0.0-0.9 [facility] Comment on above: Performed By: #### L 503.5510, L3200.0500, L3100.5440, L5500.0410, L3100.3425, L503.6150, L3300.0100, L3100.1850, L504.2610, L100.9950, L3300.1200, L100.0100, L501.9520, L300.3900, L3410.2400, L3200.1100, L3100.6900, L101.9900, L500.4050, L501.6710, L501.9985, L3400.0700, L503.6550, L3300.1800 ####[facility] [address] [place], [address] Abdomen/Pelvis without Conto n 08-11-2024 Abdomen/Pelvis without Cont Normal [facility] Absolute lymphocyte countOrd ered By: Gage Sharma on 08-11-2024 Lymphocytes Auto (Unsp spec) [#/Vol] 1.19 10*3/uL 0.83-4.51 [facility] Allergen, Food Profileon CLAM <0.10 Normal Class 0 [facility] Comment on above: Performed By: #### L 503.5510, L3200.0500, L3100.5440, L5500.0410, L3100.3425, L503.6150, L3300.0100, L3100.1850, L504.2610, L100.9950, L3300.1200, L100.0100, L501.9520, L300.3900, L3410.2400, L3200.1100, L3100.6900, L101.9900, L500.4050, L501.6710, L501.9985, L3400.0700, L503.6550, L3300.1800 ####[facility] [address] [place], [place], [id number] CODFISH <0.10 Normal Class 0 [facility] Comment on above: Performed By: #### L 503.5510, L3200.0500, L3100.5440, L5500.0410, L3100.3425, L503.6150, L3300.0100, L3100.1850, L504.2610, L100.9950, L3300.1200, L100.0100, L501.9520, L300.3900, L3410.2400, L3200.1100, L3100.6900, L101.9900, L500.4050, L501.6710, L501.9985, L3400.0700, L503.6550, L3300.1800 ####[facility] [address] [place], [place], [id number] COMMENT Comment Normal . [facility] Comment on above: Result Comment: Lupe urias [...] L101.9900, L500.4050, L501.6710, L501.9985, L3400.0700, L503.6550, L3300.1800 ####[facility] [address] [place], [place], [address] CORN <0.10 Normal Class 0 [facility] Comment on above: Performed By: #### L 503.5510, L3200.0500, L3100.5440, L5500.0410, L3100.3425, L503.6150, L3300.0100, L3100.1850, L504.2610, L100.9950, L3300.1200, L100.0100, L501.9520, L300.3900, L3410.2400, L3200.1100, L3100.6900, L101.9900, L500.4050, L501.6710, L501.9985, L3400.0700, L503.6550, L3300.1800 ####[facility] [address] [facility] [address] [place], [place], [id number] EGG, WHITE <0.10 Normal Class 0 [facility] Comment on above: Performed By: #### L 503.5510, L3200.0500, L3100.5440, L5500.0410, L3100.3425, L503.6150, L3300.0100, L3100.1850, L504.2610, L100.9950, L3300.1200, L100.0100, L501.9520, L300.3900, L3410.2400, L3200.1100, L3100.6900, L101.9900, L500.4050, L501.6710, L501.9985, L3400.0700, L503.6550, L3300.1800 ####[facility] [address] [place], [address] MILK (COW) 0.24 kU/L Abnormal Class 0/I [facility] Comment on above: Performed By: #### L 503.5510, L3200.0500, L3100.5440, L5500.0410, L3100.3425, L503.6150, L3300.0100, L3100.1850, L504.2610, L100.9950, L3300.1200, L100.0100, L501.9520, L300.3900, L3410.2400, L3200.1100, L3100.6900, L101.9900, L500.4050, L501.6710, L501.9985, L3400.0700, L503.6550, L3300.1800 ####[facility] [address] [facility] [address] [place], [place], [id number] PEANUT <0.10 Normal Class 0 [facility] Comment on above: Performed By: #### L 503.5510, L3200.0500, L3100.5440, L5500.0410, L3100.3425, L503.6150, L3300.0100, L3100.1850, L504.2610, L100.9950, L3300.1200, L100.0100, L501.9520, L300.3900, L3410.2400, L3200.1100, L3100.6900, L101.9900, L500.4050, L501.6710, L501.9985, L3400.0700, L503.6550, L3300.1800 ####[facility] [address] [facility] [place], [address] SCALLOP <0.10 Normal Class 0 [facility] Comment on above: Performed By: #### L 503.5510, L3200.0500, L3100.5440, L5500.0410, L3100.3425, L503.6150, L3300.0100, L3100.1850, L504.2610, L100.9950, L3300.1200, L100.0100, L501.9520, L300.3900, L3410.2400, L3200.1100, L3100.6900, L101.9900, L500.4050, L501.6710, L501.9985, L3400.0700, L503.6550, L3300.1800 ####[facility] [address] [facility] [place], [address] SESAME SEED <0.10 Normal Class 0 [facility] Comment on above: Result Comment: Perf ormed at: CB - [facility] [address] [id number] Director: Victor M Hargrove PhD, Phone: [phone] at: - [facility] [id number] [place], [place] [id number] Director: Isac Kemp MD, Phone: [phone] Performed By: #### L 503.5510, L3200.0500, L3100.5440, L5500.0410, L3100.3425, L503.6150, L3300.0100, L3100.1850, L504.2610, L100.9950, L3300.1200, L100.0100, L501.9520, L300.3900, L3410.2400, L3200.1100, L3100.6900, L101.9900, L500.4050, L501.6710, L501.9985, L3400.0700, L503.6550, L3300.1800 ####[facility] [address] [facility] [address] [place], [place], [id number] SHRIMP <0.10 Normal Class 0 [facility] Comment on above: Performed By: #### L 503.5510, L3200.0500, L3100.5440, L5500.0410, L3100.3425, L503.6150, L3300.0100, L3100.1850, L504.2610, L100.9950, L3300.1200, L100.0100, L501.9520, L300.3900, L3410.2400, L3200.1100, L3100.6900, L101.9900, L500.4050, L501.6710, L501.9985, L3400.0700, L503.6550, L3300.1800 ####[facility] [address] [place], [place], [id number] SOYBEAN <0.10 Normal Class 0 [facility] Comment on above: Performed By: #### L 503.5510, L3200.0500, L3100.5440, L5500.0410, L3100.3425, L503.6150, L3300.0100, L3100.1850, L504.2610, L100.9950, L3300.1200, L100.0100, L501.9520, L300.3900, L3410.2400, L3200.1100, L3100.6900, L101.9900, L500.4050, L501.6710, L501.9985, L3400.0700, L503.6550, L3300.1800 ####[facility] [facility] [address] [place], [place], [id number] WALNUT,(Food) <0.10 Normal Class 0 [facility] Comment on above: Performed By: #### L 503.5510, L3200.0500, L3100.5440, L5500.0410, L3100.3425, L503.6150, L3300.0100, L3100.1850, L504.2610, L100.9950, L3300.1200, L100.0100, L501.9520, L300.3900, L3410.2400, L3200.1100, L3100.6900, L101.9900, L500.4050, L501.6710, L501.9985, L3400.0700, L503.6550, L3300.1800 ####[facility] [address] [place], [place], [id number] WHEAT <0.10 Normal Class 0 [facility] Comment on above: Performed By: #### L 503.5510, L3200.0500, L3100.5440, L5500.0410, L3100.3425, L503.6150, L3300.0100, L3100.1850, L504.2610, L100.9950, L3300.1200, L100.0100, L501.9520, L300.3900, L3410.2400, L3200.1100, L3100.6900, L101.9900, L500.4050, L501.6710, L501.9985, L3400.0700, L503.6550, L3300.1800 ####[facility] [address] [place], [address] Anion gap in Serum or Plasma Ordered By: Gage Sharma on 08-11-2024 Anion gap [Moles/Vol] 12 mmol/L 5- [facility] Automated lymphocyte count a s percentage of total leukocytesOrdered By: Gage Sharma on 08-11-2024 Lymphocytes/100 WBC Auto (Unsp spec) 11.4 % Low [facility] BUN/creatinine ratioOrdered By: [facility] Hospital[facility]elia[facility] on 08-11-2024 Urea nitrogen/Creatinine [Mass ratio] 12.1 mg/mg 12-31 [facility] Basic Metabolic Profile (BMP )on 08-11-2024 BUN/CRE 12.1 RATIO Normal 12-31 [facility] Comment on above: Performed By: #### L 500.2500, L503.6005 ####[facility] [address] [place], [address] Calcium [Mass/Vol] 9.5 mg/dL Normal 7.6-11.0 [facility] Comment on above: Performed By: #### L 500.2500, L503.6005 ####[facility] [address] [place], [address] Chloride [Moles/Vol] 103 mmol/L Normal 98-108 [facility] Comment on above: Performed By: #### L 500.2500, L503.6005 ####[facility] [address] [place], [address] CO2 [Moles/Vol] 22.0 mmol/L Normal 21.0-32.0 [facility] Comment on above: Performed By: #### L 500.2500, L503.6005 ####[facility] [address] [place], [address] Creatinine [Mass/Vol] 0.74 mg/dL Normal 0.70-1.20 [facility] Comment on above: Performed By: #### L 500.2500, L503.6005 ####[facility] [address] [place], [address] ECRCL 83.77 ml/min Normal 50-250 [facility] Comment on above: Performed By: #### L 500.2500, L503.6005 ####[facility] [address] [place], [address] GAP 12 Normal 5-15 [facility] Comment on above: Performed By: #### L 500.2500, L503.6005 ####[facility] [address] [place], [address] GFR/1.73 sq M.predicted among non-blacks MDRD (S/P/Bld) [Vol rate/Area] 103 mL/min/{1.73_m2} Normal >60 [facility] Comment on above: Result Comment: mL/m in/1.73m2 CKD-EPI Creatinine Equation (2020) Performed By: #### L 500.2500, L503.6005 ####[facility] [address] [place], [address] Glucose [Mass/Vol] 90 mg/dL Normal 70-99 [facility] Comment on above: Performed By: #### L 500.2500, L503.6005 ####[facility] [address] [place], [address] Potassium [Moles/Vol] 4.2 mmol/L Normal 3.3-5.1 [facility] Comment on above: Performed By: #### L 500.2500, L503.6005 ####[facility] [address] [place], [address] Sodium [Moles/Vol] 137 mmol/L Normal 133-145 [facility] Comment on above: Performed By: #### L 500.2500, L503.6005 ####[facility] [address] [place], [address] Urea nitrogen [Mass/Vol] 9 mg/dL Normal 4-19 [facility] Comment on above: Performed By: #### L 500.2500, L503.6005 ####[facility] [address] [place], [address] Basophil percentageOrdered B y: Gage Sharma on 08-11-2024 Basophils/100 WBC (Bld) 0.9 % 0-1 [facility] Bilirubin Test strip Ql (U)O rdered By: Gage Sharma on 08-11-2024 Bilirubin Ql (U) Negative Negative [facility] Bilirubin directOrdered By: Gagejuan CasanovaLynne on 08-11-2024 Bilirubin.direct [Mass/Vol] 0.12 mg/dL 0.00-0.30 [facility] Bilirubin, totalOrdered By: Gagejuan Sharma on 08-11-2024 Bilirubin [Mass/Vol] 0.29 mg/dL 0.00-1.30 [facility] CBC W/Diff, Automatedon 07-14 Absolute Lymph 1.19 X10 3/uL Normal 0.83-4.51 [facility] Comment on above: Performed By: #### L 100.0100 ####[facility] [address] [place], [address] Absolute Neut 8.4 X10 3/uL High 2.0-7.7 [facility] Comment on above: Performed By: #### L 100.0100 ####[facility] [address] [place], [address] Basophils/100 WBC (Bld) 0.9 % Normal 0-1 [facility] Comment on above: Performed By: #### L 100.0100 ####[facility] [address] [place], [address] Eosinophils/100 WBC (Bld) 1.9 % Normal 0-5 [facility] Comment on above: Performed By: #### L 100.0100 ####[facility] [address] [place], [address] Erythrocyte distribution width (RBC) [Ratio] 13.1 % Normal 11.6-14.6 [facility] Comment on above: Performed By: #### L 100.0100 ####[facility] [address] [place], [address] Hematocrit (Bld) [Volume fraction] 40.9 % Normal 37-47 [facility] Comment on above: Performed By: #### L 100.0100 ####[facility] [address] [place], [address] Hemoglobin (Bld) [Mass/Vol] 13.5 g/dL Normal 12.0-15.0 [facility] Comment on above: Performed By: #### L 100.0100 ####[facility] [address] [place], [address] IG% 0.700 Normal 0.0-0.9 [facility] Comment on above: Result Comment: IG% - Immature Granulocytes (promyelocytes, myelocytes andmetamyelocytes) > 1% indicates that a LEFT SHIFT is Present. Performed By: #### L 100.0100 ####[facility] [address] [place], [address] Lymphocytes/100 WBC (Bld) 11.4 % Low 19-41 [facility] Comment on above: Performed By: #### L 100.0100 ####[facility] [address] [place], [address] MCH (RBC) [Entitic mass] 31.7 pg Normal 27.0-32.0 [facility] Comment on above: Performed By: #### L 100.0100 ####[facility] [address] [place], [address] MCHC (RBC) [Mass/Vol] 33.0 g/dL Normal 32-36 [facility] Comment on above: Performed By: #### L 100.0100 ####[facility] [address] [place], [address] MCV (RBC) [Entitic vol] 96.0 fL Normal 81-99 [facility] Comment on above: Performed By: #### L 100.0100 ####[facility] [address] [place], [address] Monocytes/100 WBC (Bld) 4.9 % Normal 0-10 [facility] Comment on above: Performed By: #### L 100.0100 ####[facility] [address] [place], [address] Neutrophils/100 WBC (Bld) 80.2 % High 47-70 [facility] Comment on above: Performed By: #### L 100.0100 ####[facility] [address] [place], [address] Nucleated RBC (Bld) [#/Vol] 0 10*3/uL Normal 0-5 [facility] Comment on above: Performed By: #### L 100.0100 ####[facility] [address] [place], [address] Platelet mean volume (Bld) [Entitic vol] 9.9 fL Normal 6.2-12.0 [facility] Comment on above: Performed By: #### L 100.0100 ####[facility] [address] [place], [address] Platelets (Bld) [#/Vol] 433 10*3/uL Normal 150-450 [facility] Comment on above: Performed By: #### L 100.0100 ####[facility] [address] [place], [address] RBC (Bld) [#/Vol] 4.26 10*6/uL Normal 4.2-5.4 [facility] Comment on above: Performed By: #### L 100.0100 ####[facility] [address] [place], [address] RDW SD 46.5 fl High 35.1-43.9 [facility] Comment on above: Performed By: #### L 100.0100 ####[facility] [address] [place], [address] WBC (Bld) [#/Vol] 10.5 10*3/uL Normal 4.4-11.0 [facility] Comment on above: Performed By: #### L 100.0100 ####[facility] [address] [place], [address] Calprotectin, Stoolon [address] 13 ug/g Normal 0-120 [facility] Comment on above: Result Comment: Conc entration Interpretation Follow-Up< 5 - 50 ug/g Normal None>50 -120 ug/g Borderline Re-evaluate in 4-6 weeks >120 ug/g Abnormal Repeat as clinically indicatedPerformed at: - [facility] [id number] Director: Isac Kemp MD, Phone: [phone] Performed By: #### L 7000.0700, M100.6796, M100.0605, M100.637, L7400.3300, M600.5000 ####[facility] [address] [place], [address] Carbon dioxide, total [Moles /volume] in Central venous bloodOrdered By: Gage Sharma on 08-11-2024 CO2 [Moles/Vol] 22.0 mmol/L 21.0-32.0 [facility] Chloride assayOrdered By: Jose Maria Sharma on 08-11-2024 Chloride [Moles/Vol] 103 mmol/L 98-108 [facility] Emergency Department Summary on 08-11-2024 Emergency Department Summary Normal [facility] Eosinophil percentageOrdered By: Gage Sharma on 08-11-2024 Eosinophils/100 WBC (Bld) 1.9 % 0-5 [facility] Erythrocyte distribution wid th ratioOrdered By: Gage Edith on 08-11-2024 Erythrocyte distribution width (RBC) [Ratio] 13.1 % 11.6-14.6 [facility] Erythrocyte distribution wid th standard deviationOrdered By: [facility] Bat[facility] on 08-11-2024 Erythrocyte distribution width (RBC) [Ratio] 46.5 fl High 35.1-43.9 [facility] Glomerular filtration rate ( GFR) estimation/1.73 sq m using serum, plasma, or whole bOrdered By: Gage Sharma on 08-11-2024 GFR/1.73 sq M.predicted among non-blacks MDRD (S/P/Bld) [Vol rate/Area] 103 mL/min/{1.73_m2} >60 [facility] Hematocrit Auto (Bld) [Volum e fraction]Ordered By: Gage Edith on 08-11-2024 Hematocrit (Bld) [Volume fraction] 40.9 % 37-47 [facility] Hemoglobin measurementOrdere d By: Gage Sharma on 08-11-2024 Hemoglobin (Bld) [Mass/Vol] 13.5 g/dL 12.0-15.0 [facility] Immature granulocytes/100 WB C Auto (Bld)Ordered By: Gage Sharma on 08-11-2024 Immature granulocytes/100 WBC (Bld) 0.700 % 0.0-0.9 [facility] Ketones Test strip Ql (U)Ord ered By: Gage Sharma on 08-11-2024 Ketones Ql (U) Negative Negative [facility] Lactic Acidon 08-11-2024 Lactate [Moles/Vol] mmol/L Normal 0.0-2.0 [facility] Comment on above: Order Comment: Y Performed By: #### L 500.2500, L503.6005 ####[facility] [address] [place], [address] Lipaseon 08-11-2024 Lipase [Catalytic activity/Vol] 17 U/L Normal 13-75 [facility] Comment on above: Result Comment: Liam rader note:LIPASE revised reference range effective 22.New Lipase methodology. Expected to produce lower valuesthan the previous assay method.NEW Reference Range: 13 - 75 U/L Performed By: #### L 501.2450, L500.3400 ####[facility] [address] [place], [address] Liver Profileon 08-11-2024 Albumin [Mass/Vol] 4.0 g/dL Normal 3.5-5.0 [facility] Comment on above: Performed By: #### L 501.2450, L500.3400 ####[facility] [address] [place], [address] ALK PHOS 173 U/L High 35-104 [facility] Comment on above: Performed By: #### L 501.2450, L500.3400 ####[facility] [address] [place], [address] ALT [Catalytic activity/Vol] 32 U/L Normal <=34 [facility] Comment on above: Performed By: #### L 501.2450, L500.3400 ####[facility] [address] [place], [address] AST [Catalytic activity/Vol] 38 U/L High <=31 [facility] Comment on above: Performed By: #### L 501.2450, L500.3400 ####[facility] [address] [place], [address] Bilirubin [Mass/Vol] 0.29 mg/dL Normal 0.00-1.30 [facility] Comment on above: Performed By: #### L 501.2450, L500.3400 ####[facility] [address] [place], [address] Bilirubin.direct [Mass/Vol] 0.12 mg/dL Normal 0.00-0.30 [facility] Comment on above: Performed By: #### L 501.2450, L500.3400 ####[facility] [address] [place], [address] Globulin (S) [Mass/Vol] 3.1 g/dL Normal 2.2-4.2 [facility] Comment on above: Performed By: #### L 501.2450, L500.3400 ####[facility] [address] [place], [address] T PROT 7.2 g/dL Normal 5.9-8.4 [facility] Comment on above: Performed By: #### L 501.2450, L500.3400 ####[facility] [address] [place], [address] MCV (mean corpuscular volume ) determinationOrdered By: Gage Sharma on 08-11-2024 MCV (RBC) [Entitic vol] 96.0 fL 81-99 [facility] Mean corpuscular hemoglobin (MCH) determinationOrdered By: Gage Sharma on 08-11-2024 MCH (RBC) [Entitic mass] 31.7 pg 27.0-32.0 [facility] Monocyte percentageOrdered B y: Gage Sharma on 08-11-2024 Monocytes/100 WBC (Bld) 4.9 % 0-10 [facility] Mucus LM Ql (Urine sed)Order ed By: Gage Sharma on 08-11-2024 Mucus Ql (Urine sed) 0 SEEN /hpf [facility] Neutrophil percentageOrdered By: Gage Sharma on 08-11-2024 Neutrophils/100 WBC (Bld) 80.2 % High 47-70 [facility] Nitrite Test strip Ql (U)Ord ered By: Gage Sharma on 08-11-2024 Nitrite Ql (U) Negative Negative [facility] No Panel InformationOrdered By: Gage Sharma on 08-11-2024 38 U/L High <32 [facility] Platelet countOrdered By: Jose Maria Sharma on 08-11-2024 Platelets (Bld) [#/Vol] 433 10*3/uL 150-450 [facility] Potassium measurement (mass/ volume)Ordered By: Gage Sharma on 08-11-2024 Potassium (Unsp spec) [Mass/Vol] 4.2 mmol/L 3.3-5.1 [facility] ,Urineon 08-11-2024 Beta HCG ( test) Ql (U) Negative Normal [facility] Comment on above: Result Comment: Very dilute urine specimens, as indicated by a low specificgravity, may not contain business office representative levels of hCG.If is still suspected, a first morning urinespecimen should be collected 48 hours later and tested. Performed By: #### L [id number] ####[facility] [address] [place], [address] Protein Test strip Ql (U)Ord ered By: Gage Sharma on 08-11-2024 Protein Ql (U) 15 mg/dl High Negative [facility] RBC Auto (Bld) [#/Vol]Ordere d By: Gage Sharma on 08-11-2024 RBC (Bld) [#/Vol] 4.26 10*6/uL 4.2-5.4 [facility] Serum creatinine measurement (mass/volume)Ordered By: Gage Sharma on 08-11-2024 Creatinine [Mass/Vol] 0.74 mg/dL 0.70-1.20 [facility] Serum globulin measurementOr dered By: Gage Sharma on 08-11-2024 Globulin (S) [Mass/Vol] 3.1 g/dL 2.2-4.2 [facility] Serum glucose measurement (m ass/volume)Ordered By: Gage Sharma on 08-11-2024 Glucose [Mass/Vol] 90 mg/dL 70-99 [facility] Serum or plasma alanine hair otransferase (ALT) measurementOrdered By: Gage Sharma on 08-11-2024 ALT [Catalytic activity/Vol] 32 U/L <35 [facility] Serum or plasma albumin leslie urement (mass/volume)Ordered By: Gage Batista on 08-11-2024 Albumin [Mass/Vol] 4.0 g/dL 3.5-5.0 [facility] Serum or plasma alkaline delfin sphatase measurementOrdered By: Gage Sharma on 08-11-2024 ALP [Catalytic activity/Vol] 173 U/L High 35-104 [facility] Serum or plasma calcium leslie urement (mass/volume)Ordered By: Gage Batista on 08-11-2024 Calcium [Mass/Vol] 9.5 mg/dL 7.6-11.0 [facility] Serum or plasma urea nitroge n measurement (mass/volume)Ordered By: Gage Sharma on 08-11-2024 Urea nitrogen [Mass/Vol] 9 mg/dL 4-19 [facility] Sodium levelOrdered By: Edd Sharma on 08-11-2024 Sodium [Moles/Vol] 137 mmol/L 133-145 [facility] Squamous epithelial cells de tection in urine sediment by light microscopyOrdered By: Gage Sharma on 08-11-2024 Epithelial cells.squamous LM Ql (Urine sed) 0-5 SEEN /hpf 5-10 [facility] Total proteinOrdered By: Zev Sharma on 08-11-2024 Protein [Mass/Vol] 7.2 g/dL 5.9-8.4 [facility] Urinalysis, Completeon 08-11 BACTERIA RARE Normal None Seen [facility] Comment on above: Order Comment: CLEAN CATCH Performed By: #### L 400.0001 ####[facility] [address] [place], [address] EPI,SQUAMOUS 0-5 SEEN Normal 5-10 [facility] Comment on above: Order Comment: CLEAN CATCH Performed By: #### L 400.0001 ####[facility] [address] [place], [address] RBC 0-5 SEEN Normal 0-5 [facility] Comment on above: Order Comment: CLEAN CATCH Performed By: #### L 400.0001 ####[facility] [address] [place], [address] WBC 0-5 SEEN Normal 0-5 [facility] Comment on above: Order Comment: CLEAN CATCH Performed By: #### L 400.0001 ####[facility] [address] [place], [address] Mucus Ql (Urine sed) 0 SEEN Normal [facility] Comment on above: Order Comment: CLEAN CATCH Performed By: #### L 400.0001 ####[facility] [address] [place], [place], [address] Urine clarityOrdered By: Zev Sharma on 08-11-2024 Clarity (U) Sl. Cloudy Clear [facility] Urine color determinationOrd ered By: Gage Sharma on 08-11-2024 Color (U) Yellow Yellow [facility] Urine glucose detectionOrder ed By: Gage Sharma on 08-11-2024 Glucose Ql (U) Normal mg/dl Normal [facility] Urine leukocyte esterase det ection by dipstickOrdered By: Gage Sharma on 08-11-2024 Leukocyte esterase Test strip Ql (U) Negative Negative [facility] Urine pHOrdered By: Gage Keller on 08-11-2024 pH (U) 7.0 [pH] 5.0 - 8.0 [facility] Urine testOrdered By: Gage Sharma on 08-11-2024 HCG ( test) Ql (U) Negative [facility] Urine sediment bacteria coun t by microscopy (number/high power field)Ordered By: Gage Sharma on 08-11-2024 Bacteria LM.HPF (Urine sed) [#/Area] RARE /hpf None Seen [facility] Urine specific gravity measu rementOrdered By: [facility] on 08-11-2024 Specific gravity (U) [Rel density] 1.010 1.002-1.03 0 [facility] Urine urobilinogen measureme ntOrdered By: [facility] on 08-11-[facility] Urobilinogen Ql (U) Normal mg/dl Normal [facility] White blood cell (WBC) count Ordered By: [facility]elia[facility] on 08-11-2024 WBC (Bld) [#/Vol] 10.5 10*3/uL 4.4-11.0 [facility] White blood cell countOrdere d By: Gage Sharma on 08-11-2024 White blood cell count 0-5 SEEN /hpf 0-5 [facility] 36on 08-10-2024 36 S: Patient called [facility] with complaints of back [...] 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 Denies recent injury, fever, dysuria, urinary retention, incontinence, weakness, numbness, or hematuria. R: Patient instructed to proceed to evaluation of severe, sudden onset pain. Patient verbalizes understanding, and states she will proceed to [place] [facility], and that her SO will drive her. Reason for Disposition Patient sounds very sick or weak to the triager Protocols used: Back Bcyi-UICII-DT Normal [facility] ANCAon 08-10-2024 Atypical pANCA <1:20 Normal Neg:<1:20 [facility] Comment on above: Order Comment: Test( s) [id number]-[id number], Serum or Plasmawas developed and its performance characteristicsdetermined by [facility]. It has not been cleared or approvedby the Food and Drug Administration. Result Comment: The atypical pANCA pattern has been observed in asignificant percentage of patients with ulcerative colitis,primary sclerosing cholangitis and autoimmune hepatitis. Performed By: #### L 503.5510, L3200.0500, L3100.5440, L5500.0410, L3100.3425, L503.6150, L3300.0100, L3100.1850, L504.2610, L100.9950, L3300.1200, L100.0100, L501.9520, L300.3900, L3410.2400, L3200.1100, L3100.6900, L101.9900, L500.4050, L501.6710, L501.9985, L3400.0700, L503.6550, L3300.1800 ####[facility] [address] [place], [address] Cytoplasmic Ab <1:20 Normal Neg:<1:20 [facility] Comment on above: Order Comment: Test( s) [id number]-Hfvzau, Serum or Plasmawas developed and its performance characteristicsdetermined by [employer]. It has not been cleared or approvedby the Food and Drug Administration. Performed By: #### L 503.5510, L3200.0500, L3100.5440, L5500.0410, L3100.3425, L503.6150, L3300.0100, L3100.1850, L504.2610, L100.9950, L3300.1200, L100.0100, L501.9520, L300.3900, L3410.2400, L3200.1100, L3100.6900, L101.9900, L500.4050, L501.6710, L501.9985, L3400.0700, L503.6550, L3300.1800 ####[facility] [address] [place], [place], [address] Perinuclear Ab. <1:20 Normal Neg:<1:20 [facility] Comment on above: Order Comment: Test( s) [id number]-Lbjjtu, Serum or Plasmawas developed and its performance characteristicsdetermined by [employer]. It has not been cleared or approvedby the Food and Drug Administration. Result Comment: The presence of positive fluorescence exhibiting P-ANCA orC-ANCA patterns alone is not specific for the diagnosis ofWegener's Granulomatosis (WG) or microscopic polyangiitis.Decisions about treatment should not be based solely onANCA IFA results. The International ANCA Group Consensusrecommends follow up testing of positive sera with both OH-3 and MPO-ANCA enzyme immunoassays. As many as 5% serumsamples are positive only by EIA. Ref. AM J Clin Kvsqie7318;111:507-513. Performed By: #### L 503.5510, L3200.0500, L3100.5440, L5500.0410, L3100.3425, L503.6150, L3300.0100, L3100.1850, L504.2610, L100.9950, L3300.1200, L100.0100, L501.9520, L300.3900, L3410.2400, L3200.1100, L3100.6900, L101.9900, L500.4050, L501.6710, L501.9985, L3400.0700, L503.6550, L3300.1800 ####[facility] [address] [facility] [address] [place], [address] Angiotensin Convert Enzymeon 08-10-2024 ANGIOT-CONV.ENZ 62 U/L Normal 14-82 [facility] Comment on above: Order Comment: Test( s) [id number]-Agoxlk, Serum or Plasmawas developed and its performance characteristicsdetermined by [employer]. It has not been cleared or approvedby the Food and Drug Administration. Performed By: #### L 503.5510, L3200.0500, L3100.5440, L5500.0410, L3100.3425, L503.6150, L3300.0100, L3100.1850, L504.2610, L100.9950, L3300.1200, L100.0100, L501.9520, L300.3900, L3410.2400, L3200.1100, L3100.6900, L101.9900, L500.4050, L501.6710, L501.9985, L3400.0700, L503.6550, L3300.1800 ####[facility] [address] [facility] [place], [place], [id number] Celiac Disease Profileon ENDOMYSIAL IGA Negative Normal Negative [facility] Comment on above: Order Comment: Test( s) 591135-Kwwxrg, Serum or Plasmawas developed and its performance characteristicsdetermined by [employer]. It has not been cleared or approvedby the Food and Drug Administration. Performed By: #### L 503.5510, L3200.0500, L3100.5440, L5500.0410, L3100.3425, L503.6150, L3300.0100, L3100.1850, L504.2610, L100.9950, L3300.1200, L100.0100, L501.9520, L300.3900, L3410.2400, L3200.1100, L3100.6900, L101.9900, L500.4050, L501.6710, L501.9985, L3400.0700, L503.6550, L3300.1800 ####[facility] [address] [facility] [place], [address] tTG IGA <2 Normal 0-3 [facility] Comment on above: Order Comment: Test( s) 224089-Mzncgl, Serum or Plasmawas developed and its performance characteristicsdetermined by [employer]. It has not been cleared or approvedby [...] L101.9900, L500.4050, L501.6710, L501.9985, L3400.0700, L503.6550, L3300.1800 ####[facility] [address] [facility] [place], [address] Ceruloplasminon 08-10-2024 CERULOPLASMIN 42.4 mg/dL High 19.0-39.0 [facility] Comment on above: Order Comment: Test( s) 867200-Exlsbe, Serum or Plasmawas developed and its performance characteristicsdetermined by [employer]. It has not been cleared or approvedby the Food and Drug Administration. Performed By: #### L 503.5510, L3200.0500, L3100.5440, L5500.0410, L3100.3425, L503.6150, L3300.0100, L3100.1850, L504.2610, L100.9950, L3300.1200, L100.0100, L501.9520, L300.3900, L3410.2400, L3200.1100, L3100.6900, L101.9900, L500.4050, L501.6710, L501.9985, L3400.0700, L503.6550, L3300.1800 ####[facility] [address] [facility] [place], [address] Copper, Serum or Plasmaon COPPER, SERUM 159 ug/dL High 80-158 [facility] Comment on above: Order Comment: Test( s) 368178-Mudgiz, Serum or Plasmawas developed and its performance characteristicsdetermined by [employer]. It has not been cleared or approvedby the Food and Drug Administration. Result Comment: Dete ction Limit = 5 Performed By: #### L 503.5510, L3200.0500, L3100.5440, L5500.0410, L3100.3425, L503.6150, L3300.0100, L3100.1850, L504.2610, L100.9950, L3300.1200, L100.0100, L501.9520, L300.3900, L3410.2400, L3200.1100, L3100.6900, L101.9900, L500.4050, L501.6710, L501.9985, L3400.0700, L503.6550, L3300.1800 ####[facility] [address] [facility]. [place], [place], [address] Gastrin, Serumon 08-10-2024 GASTRIN 17 pg/mL Normal 0-115 [facility] Comment on above: Order Comment: Test( s) 605842-Gkycpp, Serum or Plasmawas developed and its performance characteristicsdetermined by [employer]. It has not been cleared or approvedby the Food and Drug Administration. Result Comment: Siem [facility] Immulite 2000 Immunochemiluminometric assay (ICMA)Values obtained with different assay methods or kits cannotbe used interchangeably. Results cannot be interpreted asabsolute evidence of the presence or absence of malignantdisease. Performed By: #### L 503.5510, L3200.0500, L3100.5440, L5500.0410, L3100.3425, L503.6150, L3300.0100, L3100.1850, L504.2610, L100.9950, L3300.1200, L100.0100, L501.9520, L300.3900, L3410.2400, L3200.1100, L3100.6900, L101.9900, L500.4050, L501.6710, L501.9985, L3400.0700, L503.6550, L3300.1800 ####[facility] [address] [place], [place], [address] Giardia Lamblia, Stool EIAon 08-10-2024 Giardia Stool Negative Normal Negative [facility] Comment on above: Result Comment: Perf ormed at: [address] [id number] Director: Victor M Hargrove PhD, Phone: [phone] Performed By: #### L 7000.0700, M100.6796, M100.0605, M100.637, L7400.3300, M600.5000 ####[facility] [address] [place], [address] Haptoglobinon 08-10-2024 HAPTOGLOBIN 373 mg/dL High 42-296 [facility] Comment on above: Order Comment: Test( s) 429077-Ogsomk, Serum or Plasmawas developed and its performance characteristicsdetermined by [employer]. It has not been cleared or approvedby the Food and Drug Administration. Result Comment: Perf ormed at: [address] [id number] Director: Victor M Hargrove PhD, Phone: [phone] at: [address] [id number] Director: Isac Kemp MD, Phone: [phone] Performed By: #### L 503.5510, L3200.0500, L3100.5440, L5500.0410, L3100.3425, L503.6150, L3300.0100, L3100.1850, L504.2610, L100.9950, L3300.1200, L100.0100, L501.9520, L300.3900, L3410.2400, L3200.1100, L3100.6900, L101.9900, L500.4050, L501.6710, L501.9985, L3400.0700, L503.6550, L3300.1800 ####[facility] [address] [place], [place], [id number] DAVID + Protein Elect, Serumon 08-10-2024 Albumin [Mass/Vol] 3.4 g/dL Normal 2.9-4.4 [facility] Comment on above: Order Comment: Test( s) 239611-Cmvive, Serum or Plasmawas developed and its performance characteristicsdetermined by [employer]. It has not been cleared or approvedby the Food and Drug Administration.N Performed By: #### L 503.5510, L3200.0500, L3100.5440, L5500.0410, L3100.3425, L503.6150, L3300.0100, L3100.1850, L504.2610, L100.9950, L3300.1200, L100.0100, L501.9520, L300.3900, L3410.2400, L3200.1100, L3100.6900, L101.9900, L500.4050, L501.6710, L501.9985, L3400.0700, L503.6550, L3300.1800 ####[facility] [address] [place], [place], [address] Albumin/Globulin [Mass ratio] 1.0 {ratio} Normal 0.7-1.7 [facility] Comment on above: Order Comment: Test( s) 457563-Xbvsbv, Serum or Plasmawas developed and its performance characteristicsdetermined by [employer]. It has not been cleared or approvedby the Food and Drug Administration.N Performed By: #### L 503.5510, L3200.0500, L3100.5440, L5500.0410, L3100.3425, L503.6150, L3300.0100, L3100.1850, L504.2610, L100.9950, L3300.1200, L100.0100, L501.9520, L300.3900, L3410.2400, L3200.1100, L3100.6900, L101.9900, L500.4050, L501.6710, L501.9985, L3400.0700, L503.6550, L3300.1800 ####[facility] [address] [facility]. [place], [place], [phone] TNEZT-0-YNXV 0.2 g/dL Normal 0.0-0.4 [facility] Comment on above: Order Comment: Test( s) 976079-Rfqfad, Serum or Plasmawas developed and its performance characteristicsdetermined by [employer]. It has not been cleared or approvedby the Food and Drug Administration.N Performed By: #### L 503.5510, L3200.0500, L3100.5440, L5500.0410, L3100.3425, L503.6150, L3300.0100, L3100.1850, L504.2610, L100.9950, L3300.1200, L100.0100, L501.9520, L300.3900, L3410.2400, L3200.1100, L3100.6900, L101.9900, L500.4050, L501.6710, L501.9985, L3400.0700, L503.6550, L3300.1800 ####[facility] [address] [facility]. [place], [place], [id number] JWUPL-1-MHGV 1.1 g/dL High 0.4-1.0 [facility] Comment on above: Order Comment: Test( s) 181628-Eoodfo, Serum or Plasmawas developed and its performance characteristicsdetermined by [employer]. It has not been cleared or approvedby the Food and Drug Administration.N Performed By: #### L 503.5510, L3200.0500, L3100.5440, L5500.0410, L3100.3425, L503.6150, L3300.0100, L3100.1850, L504.2610, L100.9950, L3300.1200, L100.0100, L501.9520, L300.3900, L3410.2400, L3200.1100, L3100.6900, L101.9900, L500.4050, L501.6710, L501.9985, L3400.0700, L503.6550, L3300.1800 ####[facility] [address] [facility]. [place], [place], [id number] BETA GLOBULIN 1.2 g/dL Normal 0.7-1.3 [facility] Comment on above: Order Comment: Test( s) 960242-Qpdzko, Serum or Plasmawas developed and its performance characteristicsdetermined by [employer]. It has not been cleared or approvedby the Food and Drug Administration.N Performed By: #### L 503.5510, L3200.0500, L3100.5440, L5500.0410, L3100.3425, L503.6150, L3300.0100, L3100.1850, L504.2610, L100.9950, L3300.1200, L100.0100, L501.9520, L300.3900, L3410.2400, L3200.1100, L3100.6900, L101.9900, L500.4050, L501.6710, L501.9985, L3400.0700, L503.6550, L3300.1800 ####[facility] [address] [facility] [place], [address] GAMMA GLOBULIN 1.0 g/dL Normal 0.4-1.8 [facility] Comment on above: Order Comment: Test( s) 468655-Zlxhhn, Serum or Plasmawas developed and its performance characteristicsdetermined by [employer]. It has not been cleared or approvedby the Food and Drug Administration.N Performed By: #### L 503.5510, L3200.0500, L3100.5440, L5500.0410, L3100.3425, L503.6150, L3300.0100, L3100.1850, L504.2610, L100.9950, L3300.1200, L100.0100, L501.9520, L300.3900, L3410.2400, L3200.1100, L3100.6900, L101.9900, L500.4050, L501.6710, L501.9985, L3400.0700, L503.6550, L3300.1800 ####[facility] [address] [place], [place], [phone] Globulin (S) [Mass/Vol] 3.5 g/dL Normal 2.2-3.9 [facility] Comment on above: Order Comment: Test( s) 785832-Tufoik, Serum or Plasmawas developed and its performance characteristicsdetermined by [employer]. It has not been cleared or approvedby the Food and Drug Administration.N Performed By: #### L 503.5510, L3200.0500, L3100.5440, L5500.0410, L3100.3425, L503.6150, L3300.0100, L3100.1850, L504.2610, L100.9950, L3300.1200, L100.0100, L501.9520, L300.3900, L3410.2400, L3200.1100, L3100.6900, L101.9900, L500.4050, L501.6710, L501.9985, L3400.0700, L503.6550, L3300.1800 ####[facility] [address] [place], [place], [phone] DAVID RESULT,S Comment Normal . [facility] Comment on above: Order Comment: Test( s) 078150-Rohadv, Serum or Plasmawas developed and its performance characteristicsdetermined by [employer]. It has not been cleared or approvedby the Food and Drug Administration.N Result Comment: No m onoclonality detected. Performed By: #### L 503.5510, L3200.0500, L3100.5440, L5500.0410, L3100.3425, L503.6150, L3300.0100, L3100.1850, L504.2610, L100.9950, L3300.1200, L100.0100, L501.9520, L300.3900, L3410.2400, L3200.1100, L3100.6900, L101.9900, L500.4050, L501.6710, L501.9985, L3400.0700, L503.6550, L3300.1800 ####[facility] [address] [facility] [place], [address] IMMUNOGLOB A QN 134 mg/dL Normal 87-352 [facility] Comment on above: Order Comment: Test( s) 284130-Ibaitj, Serum or Plasmawas developed and its performance characteristicsdetermined by [employer]. It has not been cleared or approvedby the Food and Drug Administration.N Performed By: #### L 503.5510, L3200.0500, L3100.5440, L5500.0410, L3100.3425, L503.6150, L3300.0100, L3100.1850, L504.2610, L100.9950, L3300.1200, L100.0100, L501.9520, L300.3900, L3410.2400, L3200.1100, L3100.6900, L101.9900, L500.4050, L501.6710, L501.9985, L3400.0700, L503.6550, L3300.1800 ####[facility] [address] [facility] [place], [address] IMMUNOGLOB M QN 217 mg/dL Normal 26-217 [facility] Comment on above: Order Comment: Test( s) 308843-Wexqgf, Serum or Plasmawas developed and its performance characteristicsdetermined by [employer]. It has not been cleared or approvedby the Food and Drug Administration.N Performed By: #### L 503.5510, L3200.0500, L3100.5440, L5500.0410, L3100.3425, L503.6150, L3300.0100, L3100.1850, L504.2610, L100.9950, L3300.1200, L100.0100, L501.9520, L300.3900, L3410.2400, L3200.1100, L3100.6900, L101.9900, L500.4050, L501.6710, L501.9985, L3400.0700, L503.6550, L3300.1800 ####[facility] [address] [place], [address] M-Jayme Not Observed Normal Not Observed [facility] Comment on above: Order Comment: Test( s) 031286-Yibkai, Serum or Plasmawas developed and its performance characteristicsdetermined by [employer]. It has not been cleared or approvedby the Food and Drug Administration.N Performed By: #### L 503.5510, L3200.0500, L3100.5440, L5500.0410, L3100.3425, L503.6150, L3300.0100, L3100.1850, L504.2610, L100.9950, L3300.1200, L100.0100, L501.9520, L300.3900, L3410.2400, L3200.1100, L3100.6900, L101.9900, L500.4050, L501.6710, L501.9985, L3400.0700, L503.6550, L3300.1800 ####[facility] [address] [place], [place], [id number] NOTE: Comment Normal . [facility] Comment on above: Order Comment: Test( s) 213683-Skkejr, Serum or Plasmawas developed and its performance characteristicsdetermined by [employer]. It has not been cleared or approvedby the Food and Drug Administration.N Result Comment: Prot ein electrophoresis scan will follow via computer,mail, or foreman/pile driving and erection delivery. Performed By: #### L 503.5510, L3200.0500, L3100.5440, L5500.0410, L3100.3425, L503.6150, L3300.0100, L3100.1850, L504.2610, L100.9950, L3300.1200, L100.0100, L501.9520, L300.3900, L3410.2400, L3200.1100, L3100.6900, L101.9900, L500.4050, L501.6710, L501.9985, L3400.0700, L503.6550, L3300.1800 ####[facility] [address] [facility]. [place], [place], [phone] Protein [Mass/Vol] 6.9 g/dL Normal 6.0-8.5 [facility] Comment on above: Order Comment: Test( s) 160467-Avbmls, Serum or Plasmawas developed and its performance characteristicsdetermined by [employer]. It has not been cleared or approvedby the Food and Drug Administration.N Performed By: #### L 503.5510, L3200.0500, L3100.5440, L5500.0410, L3100.3425, L503.6150, L3300.0100, L3100.1850, L504.2610, L100.9950, L3300.1200, L100.0100, L501.9520, L300.3900, L3410.2400, L3200.1100, L3100.6900, L101.9900, L500.4050, L501.6710, L501.9985, L3400.0700, L503.6550, L3300.1800 ####[facility] [address] [facility] [place], [place], [phone] IgG Subclasseson 08-10-2024 IgG, SUBCLASS 1 509 mg/dL Normal 248-810 [facility] Comment on above: Order Comment: Test( s) 488538-Vucdxz, Serum or Plasmawas developed and its performance characteristicsdetermined by [employer]. It has not been cleared or approvedby the Food and Drug Administration. Performed By: #### L 503.5510, L3200.0500, L3100.5440, L5500.0410, L3100.3425, L503.6150, L3300.0100, L3100.1850, L504.2610, L100.9950, L3300.1200, L100.0100, L501.9520, L300.3900, L3410.2400, L3200.1100, L3100.6900, L101.9900, L500.4050, L501.6710, L501.9985, L3400.0700, L503.6550, L3300.1800 ####[facility] [address] [facility] [place], [place], [id number] IgG, SUBCLASS 2 168 mg/dL Normal 130-555 [facility] Comment on above: Order Comment: Test( s) 907776-Wnbdlk, Serum or Plasmawas developed and its performance characteristicsdetermined by [employer]. It has not been cleared or approvedby the Food and Drug Administration. Performed By: #### L 503.5510, L3200.0500, L3100.5440, L5500.0410, L3100.3425, L503.6150, L3300.0100, L3100.1850, L504.2610, L100.9950, L3300.1200, L100.0100, L501.9520, L300.3900, L3410.2400, L3200.1100, L3100.6900, L101.9900, L500.4050, L501.6710, L501.9985, L3400.0700, L503.6550, L3300.1800 ####[facility] [address] [facility] [place], [place], [address] IgG, SUBCLASS 3 73 mg/dL Normal 15-102 [facility] Comment on above: Order Comment: Test( s) 530140-Dtskyx, Serum or Plasmawas developed and its performance characteristicsdetermined by [employer]. It has not been cleared or approvedby the Food and Drug Administration. Performed By: #### L 503.5510, L3200.0500, L3100.5440, L5500.0410, L3100.3425, L503.6150, L3300.0100, L3100.1850, L504.2610, L100.9950, L3300.1200, L100.0100, L501.9520, L300.3900, L3410.2400, L3200.1100, L3100.6900, L101.9900, L500.4050, L501.6710, L501.9985, L3400.0700, L503.6550, L3300.1800 ####[facility] [address] [place], [place], [address] IgG, SUBCLASS 4 17 mg/dL Normal 2-96 [facility] Comment on above: Order Comment: Test( s) 358670-Gteaht, Serum or Plasmawas developed and its performance characteristicsdetermined by [employer]. It has not been cleared or approvedby the Food and Drug Administration. Performed By: #### L 503.5510, L3200.0500, L3100.5440, L5500.0410, L3100.3425, L503.6150, L3300.0100, L3100.1850, L504.2610, L100.9950, L3300.1200, L100.0100, L501.9520, L300.3900, L3410.2400, L3200.1100, L3100.6900, L101.9900, L500.4050, L501.6710, L501.9985, L3400.0700, L503.6550, L3300.1800 ####[facility] [address] [facility] [place], [address] IGG,QUANT 945 mg/dL Normal 586-1602 [facility] Comment on above: Order Comment: Test( s) 428351-Mospmc, Serum or Plasmawas developed and its performance characteristicsdetermined by [employer]. It has not been cleared or approvedby the Food and Drug Administration. Performed By: #### L 503.5510, L3200.0500, L3100.5440, L5500.0410, L3100.3425, L503.6150, L3300.0100, L3100.1850, L504.2610, L100.9950, L3300.1200, L100.0100, L501.9520, L300.3900, L3410.2400, L3200.1100, L3100.6900, L101.9900, L500.4050, L501.6710, L501.9985, L3400.0700, L503.6550, L3300.1800 ####[facility] [address] [facility] [place], [place], [id number] Immunoglobulins G/A/M/Librado IMMUNOGLOB E QN 122 IU/mL Normal 6-495 [facility] Comment on above: Order Comment: Test( s) 800076-Caawmg, Serum or Plasmawas developed and its performance characteristicsdetermined by [employer]. It has not been cleared or approvedby the Food and Drug Administration.N Performed By: #### L 503.5510, L3200.0500, L3100.5440, L5500.0410, L3100.3425, L503.6150, L3300.0100, L3100.1850, L504.2610, L100.9950, L3300.1200, L100.0100, L501.9520, L300.3900, L3410.2400, L3200.1100, L3100.6900, L101.9900, L500.4050, L501.6710, L501.9985, L3400.0700, L503.6550, L3300.1800 ####[facility] [address] [place], [place], [id number] Amylaseon 08-09-2024 TAWANNA 19 U/L Low 28-100 [facility] Comment on above: Order Comment: ADD O NTO YESTERDAYS BLOOD Performed By: #### L 501.2450, L501.2400 ####[facility] [address] [place], [place], [phone] CDIFF (PCR)on 08-09-2024 CDIFF Pending 027 027 NAP1-B1 Presumptive Negative *for epidemiolologic???use C. Diff PCR Negative- No toxigenic C. Diff Detected Normal [facility] Comment on above: Performed By: #### L 7000.0700, M100.6796, M100.0605, M100.637, L7400.3300, M600.5000 ####[facility] [address] [place], [place], [id number] Calprotectin stoolOrdered By : Bárbara Ureña on 08-09-2024 Calprotectin stool 13 ug/g 0-120 [facility] Clostridium difficile detect ion by polymerase chain reactionOrdered By: Bárbara Ureña on 08-09-2024 C. difficile DNA BIMAL+probe Ql (Unsp spec) [facility] ENTERIC PATHOGEN PANEL STOOL on 08-09-2024 EP PANEL Normal [facility] Comment on above: Performed By: #### L 7000.0700, M100.6796, M100.0605, M100.637, L7400.3300, M600.5000 ####[facility] [address] [place], [address] Giardia lamblia ag stool EIA Ordered By: Bárbara Ureña on 08-09-2024 G. lamblia Ag IA Ql (Stl) Negative Negative [facility] Lipaseon 08-09-2024 Lipase [Catalytic activity/Vol] 24 U/L Normal 13-75 [facility] Comment on above: Order Comment: ADD O NTO YESTERDAYS BLOOD Result Comment: Plea se note:LIPASE revised reference range effective 22.New Lipase methodology. Expected to produce lower valuesthan the previous assay method.NEW Reference Range: 13 - 75 U/L Performed By: #### L 501.2450, L501.2400 ####[facility] [address] [place], [place], [address] Serum or plasma amylase leslie urement (enzymatic activity/volume)Ordered By: Quang Myles on 08-09-2024 Amylase [Catalytic activity/Vol] 19 U/L Low 28-100 [facility] Stool Lactoferrin/WBCon 07-13 WBCST Normal Reference Ran ge = Negative Fecal WBC Lactoferrin Negative: No Fecal WBC Lactoferrin present Normal [facility] Comment on above: Performed By: #### L 7000.0700, M100.6796, M100.0605, M100.637, L7400.3300, M600.5000 ####[facility] [address] [place], [place], [id number] Stool lactoferrin detection by immunoassayOrdered By: Bárbara Ureña on 08-09-2024 Lactoferrin IA Ql (Stl) [facility] Absolute lymphocyte countOrd ered By: Quang Myles on 08-08-2024 Lymphocytes Auto (Unsp spec) [#/Vol] 1.28 10*3/uL 0.83-4.51 [facility] Albumin Elph [Mass/Vol]Order ed By: Quang Myles on 08-08-2024 Albumin [Mass/Vol] 3.4 g/dL 2.9-4.4 [facility] Ammoniaon 08-08-2024 Ammonia (P) [Moles/Vol] 36.2 umol/L Normal -51 [facility] Comment on above: Performed By: #### L 503.5510, L3200.0500, L3100.5440, L5500.0410, L3100.3425, L503.6150, L3300.0100, L3100.1850, L504.2610, L100.9950, L3300.1200, L100.0100, L501.9520, L300.3900, L3410.2400, L3200.1100, L3100.6900, L101.9900, L500.4050, L501.6710, L501.9985, L3400.0700, L503.6550, L3300.1800 ####[facility] [address] [place], [place], [phone] Anion gap in Serum or Plasma Ordered By: Quang Myles on 08-08-2024 Anion gap [Moles/Vol] 11 mmol/L 5-15 [facility] Automated lymphocyte count a s percentage of total leukocytesOrdered By: Quang Myles on 08-08-2024 Lymphocytes/100 WBC Auto (Unsp spec) 13.9 % Low 19-41 [facility] BUN/creatinine ratioOrdered By: Quang Myles on 08-08-2024 Urea nitrogen/Creatinine [Mass ratio] 12.1 mg/mg 10-20 [facility] Basophil percentageOrdered B y: Quang Myles on 08-08-2024 Basophils/100 WBC (Bld) 0.9 % 0-1 [facility] Bilirubin, totalOrdered By: Quang Myles on 08-08-2024 Bilirubin [Mass/Vol] 0.23 mg/dL 0.00-1.30 [facility] CBC W/Diff, Automatedon 07-13 Absolute Lymph 1.28 X10 3/uL Normal 0.83-4.51 [facility] Comment on above: Performed By: #### L 503.5510, L3200.0500, L3100.5440, L5500.0410, L3100.3425, L503.6150, L3300.0100, L3100.1850, L504.2610, L100.9950, L3300.1200, L100.0100, L501.9520, L300.3900, L3410.2400, L3200.1100, L3100.6900, L101.9900, L500.4050, L501.6710, L501.9985, L3400.0700, L503.6550, L3300.1800 ####[facility] [address] [place], [address] Absolute Neut 7.0 X10 3/uL Normal 2.0-7.7 [facility] Comment on above: Performed By: #### L 503.5510, L3200.0500, L3100.5440, L5500.0410, L3100.3425, L503.6150, L3300.0100, L3100.1850, L504.2610, L100.9950, L3300.1200, L100.0100, L501.9520, L300.3900, L3410.2400, L3200.1100, L3100.6900, L101.9900, L500.4050, L501.6710, L501.9985, L3400.0700, L503.6550, L3300.1800 ####[facility] [address] [place], [address]([phone]) Basophils/100 WBC (Bld) 0.9 % Normal 0-1 [facility] Comment on above: Performed By: #### L 503.5510, L3200.0500, L3100.5440, L5500.0410, L3100.3425, L503.6150, L3300.0100, L3100.1850, L504.2610, L100.9950, L3300.1200, L100.0100, L501.9520, L300.3900, L3410.2400, L3200.1100, L3100.6900, L101.9900, L500.4050, L501.6710, L501.9985, L3400.0700, L503.6550, L3300.1800 ####[facility] [address] [facility] [place], [place], [id number]) Eosinophils/100 WBC (Bld) 3.8 % Normal 0-5 [facility] Comment on above: Performed By: #### L 503.5510, L3200.0500, L3100.5440, L5500.0410, L3100.3425, L503.6150, L3300.0100, L3100.1850, L504.2610, L100.9950, L3300.1200, L100.0100, L501.9520, L300.3900, L3410.2400, L3200.1100, L3100.6900, L101.9900, L500.4050, L501.6710, L501.9985, L3400.0700, L503.6550, L3300.1800 ####[facility] [address] [facility] [place], [address] Erythrocyte distribution width (RBC) [Ratio] 13.1 % Normal 11.6-14.6 [facility] Comment on above: Performed By: #### L 503.5510, L3200.0500, L3100.5440, L5500.0410, L3100.3425, L503.6150, L3300.0100, L3100.1850, L504.2610, L100.9950, L3300.1200, L100.0100, L501.9520, L300.3900, L3410.2400, L3200.1100, L3100.6900, L101.9900, L500.4050, L501.6710, L501.9985, L3400.0700, L503.6550, L3300.1800 ####[facility] [address] [place], [address] Hematocrit (Bld) [Volume fraction] 44.1 % Normal 37-47 [facility] Comment on above: Performed By: #### L 503.5510, L3200.0500, L3100.5440, L5500.0410, L3100.3425, L503.6150, L3300.0100, L3100.1850, L504.2610, L100.9950, L3300.1200, L100.0100, L501.9520, L300.3900, L3410.2400, L3200.1100, L3100.6900, L101.9900, L500.4050, L501.6710, L501.9985, L3400.0700, L503.6550, L3300.1800 ####[facility] [address] [facility] [place], [address] Hemoglobin (Bld) [Mass/Vol] 14.7 g/dL Normal 12.0-15.0 [facility] Comment on above: Performed By: #### L 503.5510, L3200.0500, L3100.5440, L5500.0410, L3100.3425, L503.6150, L3300.0100, L3100.1850, L504.2610, L100.9950, L3300.1200, L100.0100, L501.9520, L300.3900, L3410.2400, L3200.1100, L3100.6900, L101.9900, L500.4050, L501.6710, L501.9985, L3400.0700, L503.6550, L3300.1800 ####[facility] [address] [place], [place], [id number] IG% 0.500 Normal 0.0-0.9 [facility] Comment on above: Result Comment: IG% - Immature Granulocytes (promyelocytes, myelocytes andmetamyelocytes) > 1% indicates that a LEFT SHIFT is Present. Performed By: #### L 503.5510, L3200.0500, L3100.5440, L5500.0410, L3100.3425, L503.6150, L3300.0100, L3100.1850, L504.2610, L100.9950, L3300.1200, L100.0100, L501.9520, L300.3900, L3410.2400, L3200.1100, L3100.6900, L101.9900, L500.4050, L501.6710, L501.9985, L3400.0700, L503.6550, L3300.1800 ####[facility] [address] [facility] [place], [place], [phone] Lymphocytes/100 WBC (Bld) 13.9 % Low 19-41 [facility] Comment on above: Performed By: #### L 503.5510, L3200.0500, L3100.5440, L5500.0410, L3100.3425, L503.6150, L3300.0100, L3100.1850, L504.2610, L100.9950, L3300.1200, L100.0100, L501.9520, L300.3900, L3410.2400, L3200.1100, L3100.6900, L101.9900, L500.4050, L501.6710, L501.9985, L3400.0700, L503.6550, L3300.1800 ####[facility] [address] [facility] [place], [place], [id number] MCH (RBC) [Entitic mass] 32.0 pg Normal 27.0-32.0 [facility] Comment on above: Performed By: #### L 503.5510, L3200.0500, L3100.5440, L5500.0410, L3100.3425, L503.6150, L3300.0100, L3100.1850, L504.2610, L100.9950, L3300.1200, L100.0100, L501.9520, L300.3900, L3410.2400, L3200.1100, L3100.6900, L101.9900, L500.4050, L501.6710, L501.9985, L3400.0700, L503.6550, L3300.1800 ####[facility] [address]xf[address] [facility] [place], [place], [phone] MCHC (RBC) [Mass/Vol] 33.3 g/dL Normal 32-36 [facility] Comment on above: Performed By: #### L 503.5510, L3200.0500, L3100.5440, L5500.0410, L3100.3425, L503.6150, L3300.0100, L3100.1850, L504.2610, L100.9950, L3300.1200, L100.0100, L501.9520, L300.3900, L3410.2400, L3200.1100, L3100.6900, L101.9900, L500.4050, L501.6710, L501.9985, L3400.0700, L503.6550, L3300.1800 ####[facility] [address] [place], [place], [phone] MCV (RBC) [Entitic vol] 95.9 fL Normal 81-99 [facility] Comment on above: Performed By: #### L 503.5510, L3200.0500, L3100.5440, L5500.0410, L3100.3425, L503.6150, L3300.0100, L3100.1850, L504.2610, L100.9950, L3300.1200, L100.0100, L501.9520, L300.3900, L3410.2400, L3200.1100, L3100.6900, L101.9900, L500.4050, L501.6710, L501.9985, L3400.0700, L503.6550, L3300.1800 ####[facility] [address] [place], [place], [phone] Monocytes/100 WBC (Bld) 5.4 % Normal 0-10 [facility] Comment on above: Performed By: #### L 503.5510, L3200.0500, L3100.5440, L5500.0410, L3100.3425, L503.6150, L3300.0100, L3100.1850, L504.2610, L100.9950, L3300.1200, L100.0100, L501.9520, L300.3900, L3410.2400, L3200.1100, L3100.6900, L101.9900, L500.4050, L501.6710, L501.9985, L3400.0700, L503.6550, L3300.1800 ####[facility] [address] [place], [place], [phone]) Neutrophils/100 WBC (Bld) 75.5 % High 47-70 [facility] Comment on above: Performed By: #### L 503.5510, L3200.0500, L3100.5440, L5500.0410, L3100.3425, L503.6150, L3300.0100, L3100.1850, L504.2610, L100.9950, L3300.1200, L100.0100, L501.9520, L300.3900, L3410.2400, L3200.1100, L3100.6900, L101.9900, L500.4050, L501.6710, L501.9985, L3400.0700, L503.6550, L3300.1800 ####[facility] Rxbascmzoc[address] [facility] [place], [place], [phone](638) Nucleated RBC (Bld) [#/Vol] 0 10*3/uL Normal 0-5 [facility] Comment on above: Performed By: #### L 503.5510, L3200.0500, L3100.5440, L5500.0410, L3100.3425, L503.6150, L3300.0100, L3100.1850, L504.2610, L100.9950, L3300.1200, L100.0100, L501.9520, L300.3900, L3410.2400, L3200.1100, L3100.6900, L101.9900, L500.4050, L501.6710, L501.9985, L3400.0700, L503.6550, L3300.1800 ####[facility] [address] [facility] [place], [place], [phone] Platelet mean volume (Bld) [Entitic vol] 9.9 fL Normal 6.2-12.0 [facility] Comment on above: Performed By: #### L 503.5510, L3200.0500, L3100.5440, L5500.0410, L3100.3425, L503.6150, L3300.0100, L3100.1850, L504.2610, L100.9950, L3300.1200, L100.0100, L501.9520, L300.3900, L3410.2400, L3200.1100, L3100.6900, L101.9900, L500.4050, L501.6710, L501.9985, L3400.0700, L503.6550, L3300.1800 ####[facility] [address] [place], [place], [phone] Platelets (Bld) [#/Vol] 375 10*3/uL Normal 150-450 [facility] Comment on above: Performed By: #### L 503.5510, L3200.0500, L3100.5440, L5500.0410, L3100.3425, L503.6150, L3300.0100, L3100.1850, L504.2610, L100.9950, L3300.1200, L100.0100, L501.9520, L300.3900, L3410.2400, L3200.1100, L3100.6900, L101.9900, L500.4050, L501.6710, L501.9985, L3400.0700, L503.6550, L3300.1800 ####[facility] [address] [place], [place], [phone] RBC (Bld) [#/Vol] 4.60 10*6/uL Normal 4.2-5.4 [facility] Comment on above: Performed By: #### L 503.5510, L3200.0500, L3100.5440, L5500.0410, L3100.3425, L503.6150, L3300.0100, L3100.1850, L504.2610, L100.9950, L3300.1200, L100.0100, L501.9520, L300.3900, L3410.2400, L3200.1100, L3100.6900, L101.9900, L500.4050, L501.6710, L501.9985, L3400.0700, L503.6550, L3300.1800 ####[facility] [address] [facility] [place], [place], [phone] RDW SD 46.1 fl High 35.1-43.9 [facility] Comment on above: Performed By: #### L 503.5510, L3200.0500, L3100.5440, L5500.0410, L3100.3425, L503.6150, L3300.0100, L3100.1850, L504.2610, L100.9950, L3300.1200, L100.0100, L501.9520, L300.3900, L3410.2400, L3200.1100, L3100.6900, L101.9900, L500.4050, L501.6710, L501.9985, L3400.0700, L503.6550, L3300.1800 ####[facility] [address] [place], [place], [phone] WBC (Bld) [#/Vol] 9.2 10*3/uL Normal 4.4-11.0 [facility] Comment on above: Performed By: #### L 503.5510, L3200.0500, L3100.5440, L5500.0410, L3100.3425, L503.6150, L3300.0100, L3100.1850, L504.2610, L100.9950, L3300.1200, L100.0100, L501.9520, L300.3900, L3410.2400, L3200.1100, L3100.6900, L101.9900, L500.4050, L501.6710, L501.9985, L3400.0700, L503.6550, L3300.1800 ####[facility] [address] [facility] [place], [place], [phone] CRPon 08-08-2024 C-REACTIVE PROT 16.80 mg/L High 0.0-3.0 [facility] Comment on above: Performed By: #### L 503.5510, L3200.0500, L3100.5440, L5500.0410, L3100.3425, L503.6150, L3300.0100, L3100.1850, L504.2610, L100.9950, L3300.1200, L100.0100, L501.9520, L300.3900, L3410.2400, L3200.1100, L3100.6900, L101.9900, L500.4050, L501.6710, L501.9985, L3400.0700, L503.6550, L3300.1800 ####[facility] E[address] [facility] [place], [place], [phone] Carbon dioxide, total [Moles /volume] in Central venous bloodOrdered By: Quang Myles on 08-08-2024 CO2 [Moles/Vol] 21.1 mmol/L 21.0-32.0 [facility] Chloride assayOrdered By: Ra treva Myles on 08-08-2024 Chloride [Moles/Vol] 106 mmol/L 98-108 [facility] Comprehensive Metabolic Prof ilon 08-08-2024 Albumin [Mass/Vol] 3.9 g/dL Normal 3.5-5.0 [facility] Comment on above: Performed By: #### L 503.5510, L3200.0500, L3100.5440, L5500.0410, L3100.3425, L503.6150, L3300.0100, L3100.1850, L504.2610, L100.9950, L3300.1200, L100.0100, L501.9520, L300.3900, L3410.2400, L3200.1100, L3100.6900, L101.9900, L500.4050, L501.6710, L501.9985, L3400.0700, L503.6550, L3300.1800 ####[facility] [address] [place], [place], [phone] Albumin/Globulin [Mass ratio] 1.1 {ratio} Normal 0.9-2.4 [facility] Comment on above: Performed By: #### L 503.5510, L3200.0500, L3100.5440, L5500.0410, L3100.3425, L503.6150, L3300.0100, L3100.1850, L504.2610, L100.9950, L3300.1200, L100.0100, L501.9520, L300.3900, L3410.2400, L3200.1100, L3100.6900, L101.9900, L500.4050, L501.6710, L501.9985, L3400.0700, L503.6550, L3300.1800 ####[facility] [address] [place], [place], [id number] ALK PHOS 155 U/L High 35-104 [facility] Comment on above: Performed By: #### L 503.5510, L3200.0500, L3100.5440, L5500.0410, L3100.3425, L503.6150, L3300.0100, L3100.1850, L504.2610, L100.9950, L3300.1200, L100.0100, L501.9520, L300.3900, L3410.2400, L3200.1100, L3100.6900, L101.9900, L500.4050, L501.6710, L501.9985, L3400.0700, L503.6550, L3300.1800 ####[facility] [address] [facility] [place], [address] ALT [Catalytic activity/Vol] 37 U/L High <=34 [facility] Comment on above: Performed By: #### L 503.5510, L3200.0500, L3100.5440, L5500.0410, L3100.3425, L503.6150, L3300.0100, L3100.1850, L504.2610, L100.9950, L3300.1200, L100.0100, L501.9520, L300.3900, L3410.2400, L3200.1100, L3100.6900, L101.9900, L500.4050, L501.6710, L501.9985, L3400.0700, L503.6550, L3300.1800 ####[facility] [address] [facility] [place], [address] AST [Catalytic activity/Vol] 43 U/L High <=31 [facility] Comment on above: Performed By: #### L 503.5510, L3200.0500, L3100.5440, L5500.0410, L3100.3425, L503.6150, L3300.0100, L3100.1850, L504.2610, L100.9950, L3300.1200, L100.0100, L501.9520, L300.3900, L3410.2400, L3200.1100, L3100.6900, L101.9900, L500.4050, L501.6710, L501.9985, L3400.0700, L503.6550, L3300.1800 ####[facility] [address] [place], [place], [phone] Bilirubin [Mass/Vol] 0.23 mg/dL Normal 0.00-1.30 [facility] Comment on above: Performed By: #### L 503.5510, L3200.0500, L3100.5440, L5500.0410, L3100.3425, L503.6150, L3300.0100, L3100.1850, L504.2610, L100.9950, L3300.1200, L100.0100, L501.9520, L300.3900, L3410.2400, L3200.1100, L3100.6900, L101.9900, L500.4050, L501.6710, L501.9985, L3400.0700, L503.6550, L3300.1800 ####[facility] [address] [place], [address] BUN/CRE 12.1 RATIO Normal 10-20 [facility] Comment on above: Performed By: #### L 503.5510, L3200.0500, L3100.5440, L5500.0410, L3100.3425, L503.6150, L3300.0100, L3100.1850, L504.2610, L100.9950, L3300.1200, L100.0100, L501.9520, L300.3900, L3410.2400, L3200.1100, L3100.6900, L101.9900, L500.4050, L501.6710, L501.9985, L3400.0700, L503.6550, L3300.1800 ####[facility] [address] [place], [place], [phone] Calcium [Mass/Vol] 9.7 mg/dL Normal 7.6-11.0 [facility] Comment on above: Performed By: #### L 503.5510, L3200.0500, L3100.5440, L5500.0410, L3100.3425, L503.6150, L3300.0100, L3100.1850, L504.2610, L100.9950, L3300.1200, L100.0100, L501.9520, L300.3900, L3410.2400, L3200.1100, L3100.6900, L101.9900, L500.4050, L501.6710, L501.9985, L3400.0700, L503.6550, L3300.1800 ####[facility] [address] [facility] [place], [place], [id number] Chloride [Moles/Vol] 106 mmol/L Normal 98-108 [facility] Comment on above: Performed By: #### L 503.5510, L3200.0500, L3100.5440, L5500.0410, L3100.3425, L503.6150, L3300.0100, L3100.1850, L504.2610, L100.9950, L3300.1200, L100.0100, L501.9520, L300.3900, L3410.2400, L3200.1100, L3100.6900, L101.9900, L500.4050, L501.6710, L501.9985, L3400.0700, L503.6550, L3300.1800 ####[facility] [address]3 [facility] [place], [place], [phone] CO2 [Moles/Vol] 21.1 mmol/L Normal 21.0-32.0 [facility] Comment on above: Performed By: #### L 503.5510, L3200.0500, L3100.5440, L5500.0410, L3100.3425, L503.6150, L3300.0100, L3100.1850, L504.2610, L100.9950, L3300.1200, L100.0100, L501.9520, L300.3900, L3410.2400, L3200.1100, L3100.6900, L101.9900, L500.4050, L501.6710, L501.9985, L3400.0700, L503.6550, L3300.1800 ####[facility] [address] [facility] [place], [place], [phone] Creatinine [Mass/Vol] 0.71 mg/dL Normal 0.70-1.20 [facility] Comment on above: Performed By: #### L 503.5510, L3200.0500, L3100.5440, L5500.0410, L3100.3425, L503.6150, L3300.0100, L3100.1850, L504.2610, L100.9950, L3300.1200, L100.0100, L501.9520, L300.3900, L3410.2400, L3200.1100, L3100.6900, L101.9900, L500.4050, L501.6710, L501.9985, L3400.0700, L503.6550, L3300.1800 ####[facility] [address] [facility] [place], [address] GAP 11 Normal 5-15 [facility] Comment on above: Performed By: #### L 503.5510, L3200.0500, L3100.5440, L5500.0410, L3100.3425, L503.6150, L3300.0100, L3100.1850, L504.2610, L100.9950, L3300.1200, L100.0100, L501.9520, L300.3900, L3410.2400, L3200.1100, L3100.6900, L101.9900, L500.4050, L501.6710, L501.9985, L3400.0700, L503.6550, L3300.1800 ####[facility] [address] [facility] [place], [address] GFR/1.73 sq M.predicted among non-blacks MDRD (S/P/Bld) [Vol rate/Area] 107 mL/min/{1.73_m2} Normal >60 [facility] Comment on above: Result Comment: mL/m in/1.73m2 CKD-EPI Creatinine Equation (2020) Performed By: #### L 503.5510, L3200.0500, L3100.5440, L5500.0410, L3100.3425, L503.6150, L3300.0100, L3100.1850, L504.2610, L100.9950, L3300.1200, L100.0100, L501.9520, L300.3900, L3410.2400, L3200.1100, L3100.6900, L101.9900, L500.4050, L501.6710, L501.9985, L3400.0700, L503.6550, L3300.1800 ####[facility] [address] [place], [address] Globulin (S) [Mass/Vol] 3.4 g/dL Normal 2.2-4.2 [facility] Comment on above: Performed By: #### L 503.5510, L3200.0500, L3100.5440, L5500.0410, L3100.3425, L503.6150, L3300.0100, L3100.1850, L504.2610, L100.9950, L3300.1200, L100.0100, L501.9520, L300.3900, L3410.2400, L3200.1100, L3100.6900, L101.9900, L500.4050, L501.6710, L501.9985, L3400.0700, L503.6550, L3300.1800 ####[facility] [address] [place], [address] Glucose [Mass/Vol] 93 mg/dL Normal 70-99 [facility] Comment on above: Performed By: #### L 503.5510, L3200.0500, L3100.5440, L5500.0410, L3100.3425, L503.6150, L3300.0100, L3100.1850, L504.2610, L100.9950, L3300.1200, L100.0100, L501.9520, L300.3900, L3410.2400, L3200.1100, L3100.6900, L101.9900, L500.4050, L501.6710, L501.9985, L3400.0700, L503.6550, L3300.1800 ####[facility] [address]81 [facility] [place], [place], [phone] Potassium [Moles/Vol] 4.2 mmol/L Normal 3.3-5.1 [facility] Comment on above: Performed By: #### L 503.5510, L3200.0500, L3100.5440, L5500.0410, L3100.3425, L503.6150, L3300.0100, L3100.1850, L504.2610, L100.9950, L3300.1200, L100.0100, L501.9520, L300.3900, L3410.2400, L3200.1100, L3100.6900, L101.9900, L500.4050, L501.6710, L501.9985, L3400.0700, L503.6550, L3300.1800 ####[facility] [address] [place], [place], [phone] Sodium [Moles/Vol] 138 mmol/L Normal 133-145 [facility] Comment on above: Performed By: #### L 503.5510, L3200.0500, L3100.5440, L5500.0410, L3100.3425, L503.6150, L3300.0100, L3100.1850, L504.2610, L100.9950, L3300.1200, L100.0100, L501.9520, L300.3900, L3410.2400, L3200.1100, L3100.6900, L101.9900, L500.4050, L501.6710, L501.9985, L3400.0700, L503.6550, L3300.1800 ####[facility] [address] [place], [place], [id number] T PROT 7.3 g/dL Normal 5.9-8.4 [facility] Comment on above: Performed By: #### L 503.5510, L3200.0500, L3100.5440, L5500.0410, L3100.3425, L503.6150, L3300.0100, L3100.1850, L504.2610, L100.9950, L3300.1200, L100.0100, L501.9520, L300.3900, L3410.2400, L3200.1100, L3100.6900, L101.9900, L500.4050, L501.6710, L501.9985, L3400.0700, L503.6550, L3300.1800 ####[facility] [address] [facility] [address]. [place], [place], [phone] Urea nitrogen [Mass/Vol] 9 mg/dL Normal 4-19 [facility] Comment on above: Performed By: #### L 503.5510, L3200.0500, L3100.5440, L5500.0410, L3100.3425, L503.6150, L3300.0100, L3100.1850, L504.2610, L100.9950, L3300.1200, L100.0100, L501.9520, L300.3900, L3410.2400, L3200.1100, L3100.6900, L101.9900, L500.4050, L501.6710, L501.9985, L3400.0700, L503.6550, L3300.1800 ####[facility] [address] [facility] [place], [address] Eosinophil percentageOrdered By: Quang Myles on 08-08-2024 Eosinophils/100 WBC (Bld) 3.8 % 0-5 [facility] Erythrocyte Sed Rateon 08-08 SED RATE 69 mm/hr High 0-30 [facility] Comment on above: Performed By: #### L 503.5510, L3200.0500, L3100.5440, L5500.0410, L3100.3425, L503.6150, L3300.0100, L3100.1850, L504.2610, L100.9950, L3300.1200, L100.0100, L501.9520, L300.3900, L3410.2400, L3200.1100, L3100.6900, L101.9900, L500.4050, L501.6710, L501.9985, L3400.0700, L503.6550, L3300.1800 ####[facility] [id number] [place], [place], [address] Erythrocyte distribution wid th ratioOrdered By: Quang Friend on 08-08-2024 Erythrocyte distribution width (RBC) [Ratio] 13.1 % 11.6-14.6 [facility] Erythrocyte distribution wid th standard deviationOrdered By: Quang Friend on 08-08-2024 Erythrocyte distribution width (RBC) [Ratio] 46.1 fl High 35.1-43.9 [facility] Erythrocyte sedimentation ra teOrdered By: Quang Greg on 08-08-2024 ESR (Bld) [Velocity] 69 mm/h High 0-30 [facility] Ferritinon 08-08-2024 Ferritin [Mass/Vol] 216 ng/mL Normal 22-378 [facility] Comment on above: Performed By: #### L 503.5510, L3200.0500, L3100.5440, L5500.0410, L3100.3425, L503.6150, L3300.0100, L3100.1850, L504.2610, L100.9950, L3300.1200, L100.0100, L501.9520, L300.3900, L3410.2400, L3200.1100, L3100.6900, L101.9900, L500.4050, L501.6710, L501.9985, L3400.0700, L503.6550, L3300.1800 ####[facility] [id number] [place], [place], [id number] Gastrin, serumOrdered By: Ra treva Myles on 08-08-2024 Gastrin [Mass/Vol] 17 pg/mL 0-115 [facility] Gastroenterology Visit Repor ton 08-08-2024 Gastroenterology Visit Report Normal [facility] Glomerular filtration rate ( GFR) estimation/1.73 sq m using serum, plasma, or whole bOrdered By: Quang Myles on 08-08-2024 GFR/1.73 sq M.predicted among non-blacks MDRD (S/P/Bld) [Vol rate/Area] 107 mL/min/{1.73_m2} >60 [facility] Hematocrit Auto (Bld) [Volum e fraction]Ordered By: Quang Myles on 08-08-2024 Hematocrit (Bld) [Volume fraction] 44.1 % 37-47 [facility] Hemoglobin A1con 08-08-2024 HbA1c (Bld) [Mass fraction] 6.0 % High <=5.6 [facility] Comment on above: Result Comment: Norm al < 5.7 % Prediabetic 5.7 - 6.4 % Diabetic >or= 6.5 % Please note range changes. Performed By: #### L 503.5510, L3200.0500, L3100.5440, L5500.0410, L3100.3425, L503.6150, L3300.0100, L3100.1850, L504.2610, L100.9950, L3300.1200, L100.0100, L501.9520, L300.3900, L3410.2400, L3200.1100, L3100.6900, L101.9900, L500.4050, L501.6710, L501.9985, L3400.0700, L503.6550, L3300.1800 ####[facility] [id number] [place], [address] Hemoglobin A1c percentageOrd ered By: Quang Myles on 08-08-2024 HbA1c (Bld) [Mass fraction] 6.0 % High <5.7 [facility] Hemoglobin measurementOrdere d By: Quang Myles on 08-08-2024 Hemoglobin (Bld) [Mass/Vol] 14.7 g/dL 12.0-15.0 [facility] IgEOrdered By: Quang arciniega on 08-08-2024 IgE 122 IU/mL 6-495 [facility] Immature granulocytes/100 WB C Auto (Bld)Ordered By: Quang Myles on 08-08-2024 Immature granulocytes/100 WBC (Bld) 0.500 % 0.0-0.9 [facility] Interpretation of serum or p lasma protein pattern by immunofixation (narrative resultOrdered By: Quang Myles on 08-08-2024 Protein Fractions Immunofixation David [Interp] Not Observed g/dL Not Observed [facility] Ironon 08-08-2024 Iron [Mass/Vol] 75 ug/dL Normal 50-170 [facility] Comment on above: Performed By: #### L 503.5510, L3200.0500, L3100.5440, L5500.0410, L3100.3425, L503.6150, L3300.0100, L3100.1850, L504.2610, L100.9950, L3300.1200, L100.0100, L501.9520, L300.3900, L3410.2400, L3200.1100, L3100.6900, L101.9900, L500.4050, L501.6710, L501.9985, L3400.0700, L503.6550, L3300.1800 ####[facility] [id number] [place], [address] Iron measurement (mass/mass) Ordered By: Quang Myles on 08-08-2024 Iron (Unsp spec) [Mass/Mass] 75 ug/dL 50-170 [facility] LDHon 08-08-2024 LDH 258 U/L High 84-246 [facility] Comment on above: Order Comment: 1 Performed By: #### L 503.5510, L3200.0500, L3100.5440, L5500.0410, L3100.3425, L503.6150, L3300.0100, L3100.1850, L504.2610, L100.9950, L3300.1200, L100.0100, L501.9520, L300.3900, L3410.2400, L3200.1100, L3100.6900, L101.9900, L500.4050, L501.6710, L501.9985, L3400.0700, L503.6550, L3300.1800 ####[facility] [id number] [place], [address] Laboratory - Miscellaneous t estsOrdered By: Quang Myles on 08-08-2024 Service comment (Unsp spec) [Interp] Comment . [facility] MCV (mean corpuscular volume ) determinationOrdered By: Quang Myles on 08-08-2024 MCV (RBC) [Entitic vol] 95.9 fL 81-99 [facility] Mean corpuscular hemoglobin (MCH) determinationOrdered By: Quang Myles on 08-08-2024 MCH (RBC) [Entitic mass] 32.0 pg 27.0-32.0 [facility] Monocyte percentageOrdered B y: Quang Myles on 08-08-2024 Monocytes/100 WBC (Bld) 5.4 % 0-10 [facility] Neutrophil percentageOrdered By: Quang Myles on 08-08-2024 Neutrophils/100 WBC (Bld) 75.5 % High 47-70 [facility] No Panel InformationOrdered By: Quang Myles on 08-08-2024 Addendum Document Comment . [facility] 43 U/L High <32 [facility] [facility] Platelet countOrdered By: Ra treva Myles on 08-08-2024 Platelets (Bld) [#/Vol] 375 10*3/uL 150-450 [facility] Potassium measurement (mass/ volume)Ordered By: Quang Myles on 08-08-2024 Potassium (Unsp spec) [Mass/Vol] 4.2 mmol/L 3.3-5.1 [facility] Prothrombin Time w/INRon INR Coag (PPP) [Relative time] 1.0 {INR} Normal [facility] Comment on above: Performed By: #### L 503.5510, L3200.0500, L3100.5440, L5500.0410, L3100.3425, L503.6150, L3300.0100, L3100.1850, L504.2610, L100.9950, L3300.1200, L100.0100, L501.9520, L300.3900, L3410.2400, L3200.1100, L3100.6900, L101.9900, L500.4050, L501.6710, L501.9985, L3400.0700, L503.6550, L3300.1800 ####[facility] [id number] [facility] [place], [address] PT Coag (PPP) [Time] 12.8 s Normal 11.7-14.9 [facility] Comment on above: Performed By: #### L 503.5510, L3200.0500, L3100.5440, L5500.0410, L3100.3425, L503.6150, L3300.0100, L3100.1850, L504.2610, L100.9950, L3300.1200, L100.0100, L501.9520, L300.3900, L3410.2400, L3200.1100, L3100.6900, L101.9900, L500.4050, L501.6710, L501.9985, L3400.0700, L503.6550, L3300.1800 ####[facility] [id number] [facility] [place], [address] Prothrombin timeOrdered By: Quang Myles on 08-08-2024 PT Coag (PPP) [Time] 12.8 s 11.7-14.9 [facility] RBC Auto (Bld) [#/Vol]Ordere d By: Quang Friend on 08-08-2024 RBC (Bld) [#/Vol] 4.60 10*6/uL 4.2-5.4 [facility] Retic Panelon 08-08-2024 IM RET FRACTION 14.30 Normal 3.00-15.90 [facility] Comment on above: Performed By: #### L 503.5510, L3200.0500, L3100.5440, L5500.0410, L3100.3425, L503.6150, L3300.0100, L3100.1850, L504.2610, L100.9950, L3300.1200, L100.0100, L501.9520, L300.3900, L3410.2400, L3200.1100, L3100.6900, L101.9900, L500.4050, L501.6710, L501.9985, L3400.0700, L503.6550, L3300.1800 ####[facility] [address] [place], [place], [id number] RET-HE 34.4 pg Normal 30-35 [facility] Comment on above: Performed By: #### L 503.5510, L3200.0500, L3100.5440, L5500.0410, L3100.3425, L503.6150, L3300.0100, L3100.1850, L504.2610, L100.9950, L3300.1200, L100.0100, L501.9520, L300.3900, L3410.2400, L3200.1100, L3100.6900, L101.9900, L500.4050, L501.6710, L501.9985, L3400.0700, L503.6550, L3300.1800 ####[facility] [address] [place], [place], [id number] Retic Count 0.78 Normal 0.5-1.5 [facility] Comment on above: Performed By: #### L 503.5510, L3200.0500, L3100.5440, L5500.0410, L3100.3425, L503.6150, L3300.0100, L3100.1850, L504.2610, L100.9950, L3300.1200, L100.0100, L501.9520, L300.3900, L3410.2400, L3200.1100, L3100.6900, L101.9900, L500.4050, L501.6710, L501.9985, L3400.0700, L503.6550, L3300.1800 ####[facility] [address] [place], [place], [address] Reticulocyte hemoglobin equi valent (RET-He) measurementOrdered By: Quang Myles on 08-08-2024 Hemoglobin (Reticulocytes) [Entitic mass] 34.4 pg 30-35 [facility] Reticulocytes Auto (Bld) [#/ Vol]Ordered By: Quang Myles on 08-08-2024 Reticulocytes/100 RBC (Bld) 0.78 % 0.5-1.5 [facility] Serum DNA double strand anti body assay (units/volume)Ordered By: Quang Myles on 08-08-2024 DNA double strand Ab Qn (S) [IU]/mL 0-9 [facility] Serum IgG subclass 1 measure ment (mass/volume)Ordered By: Quang Myles on 08-08-2024 IgG subclass 1 (S) [Mass/Vol] 509 mg/dL 248-810 [facility] Serum IgG subclass 2 measure ment (mass/volume)Ordered By: Quang Myles on 08-08-2024 IgG subclass 2 (S) [Mass/Vol] 168 mg/dL 130-555 [facility] Serum IgG subclass 3 measure ment (mass/volume)Ordered By: Quang Myles on 08-08-2024 IgG subclass 3 (S) [Mass/Vol] 73 mg/dL 15-102 [facility] Serum Scl-70 antibody assay (units/volume)Ordered By: Quang Myles on 08-08-2024 SCL-70 extractable nuclear Ab Qn (S) TNP [facility] SCL-70 extractable nuclear Ab Qn (S) <0.2 AI 0.0-0.9 [facility] Serum black walnut IgE antib eliecer assay (units/volume)Ordered By: Quang Myles on 08-08-2024 Black Elizabeth IgE Qn (S) <0.10 kU/L Class 0 [facility] Serum clam IgE antibody assa y (units/volume)Ordered By: Quang Myles on 08-08-2024 Clam IgE Qn (S) <0.10 kU/L Class 0 [facility] Serum classic neutrophil cyt oplasmic antibody assay (units/volume)Ordered By: Quang Myles on 08-08-2024 Neutrophil cytoplasmic Ab.classic Qn (S) <1:20 titer Neg:<1:20 [facility] Serum codfish IgE antibody a ssay (units/volume)Ordered By: Quang Myles on 08-08-2024 Codfish IgE Qn (S) <0.10 kU/L Class 0 [facility] Serum corn IgE antibody assa y (units/volume)Ordered By: Quang Myles on 08-08-2024 Toyah IgE Qn (S) <0.10 kU/L Class 0 [facility] Serum cow milk IgE antibody assay (units/volume)Ordered By: Quang Myles on 08-08-2024 Cow milk IgE Qn (S) 0.24 kU/L High Class 0/I [facility] Serum creatinine measurement (mass/volume)Ordered By: Quang Myles on 08-08-2024 Creatinine [Mass/Vol] 0.71 mg/dL 0.70-1.20 [facility] Serum egg white IgE antibody assay (units/volume)Ordered By: Quang Myles on 08-08-2024 Egg white IgE Qn (S) <0.10 kU/L Class 0 [facility] Serum globulin measurement ( mass/volume)Ordered By: Quang Myles on 08-08-2024 Globulin (S) [Mass/Vol] 3.5 g/dL 2.2-3.9 [facility] Serum glucose measurement (m ass/volume)Ordered By: Quang Myles on 08-08-2024 Glucose [Mass/Vol] 93 mg/dL 70-99 [facility] Serum or plasma C reactive p rotein measurement (mass/volume)Ordered By: Quang Myles on 08-08-2024 CRP [Mass/Vol] 16.80 mg/L High 0.0-3.0 [facility] Serum or plasma IgA measurem ent (mass/volume)Ordered By: Quang Myles on 08-08-2024 IgA [Mass/Vol] 134 mg/dL 87-352 [facility] Serum or plasma IgG measurem ent (mass/volume)Ordered By: Quang Myles on 08-08-2024 IgG [Mass/Vol] 945 mg/dL 586-1602 [facility] IgG [Mass/Vol] Not Reportable [facility] Serum or plasma alanine hair otransferase (ALT) measurementOrdered By: Quang Myles on 08-08-2024 ALT [Catalytic activity/Vol] 37 U/L High <35 [facility] Serum or plasma albumin leslie urement (mass/volume)Ordered By: Quang Myles on 08-08-2024 Albumin [Mass/Vol] 3.9 g/dL 3.5-5.0 [facility] Serum or plasma albumin/glob ulin mass ratioOrdered By: Quang Myles on 08-08-2024 Albumin/Globulin [Mass ratio] 1.1 {ratio} 0.9-2.4 [facility] Serum or plasma alkaline delfin sphatase measurementOrdered By: Quang Myles on 08-08-2024 ALP [Catalytic activity/Vol] 155 U/L High 35-104 [facility] Serum or plasma alpha 1 glob ulin measurement by electrophoresis (mass/volume)Ordered By: Quang Myles on 08-08-2024 Alpha 1 globulin Elph [Mass/Vol] 0.2 g/dL 0.0-0.4 [facility] Alpha 1 globulin Elph [Mass/Vol] 1.1 g/dL High 0.4-1.0 [facility] Serum or plasma angiotensin converting enzyme measurement (enzymatic activity/volume)Ordered By: Quang Myles on 08-08-2024 Angiotensin converting enzyme [Catalytic activity/Vol] 62 U/L 14-82 [facility] Serum or plasma beta globuli n measurement by electrophoresis (mass/volume)Ordered By: Quang Myles on 08-08-2024 Beta globulin Elph [Mass/Vol] 1.2 g/dL 0.7-1.3 [facility] Serum or plasma calcium leslie urement (mass/volume)Ordered By: Quang Myles on 08-08-2024 Calcium [Mass/Vol] 9.7 mg/dL 7.6-11.0 [facility] Serum or plasma ferritin janet surement (mass/volume)Ordered By: Quang Myles on 08-08-2024 Ferritin [Mass/Vol] 216 ng/mL 22-378 [facility] Serum or plasma gamma globul in measurement by electrophoresis (mass/volume)Ordered By: Quang Myles on 08-08-2024 Gamma globulin Elph [Mass/Vol] 1.0 g/dL 0.4-1.8 [facility] Serum or plasma immunoelectr ophoresis interpretation (nominal result)Ordered By: Quang Myles on 08-08-2024 Interpretation IEP [Interp] Comment . [facility] Serum or plasma protein leslie urement (mass/volume)Ordered By: Quang Myles on 08-08-2024 Protein [Mass/Vol] 6.9 g/dL 6.0-8.5 [facility] Serum or plasma urea nitroge n measurement (mass/volume)Ordered By: Quang Myles on 08-08-2024 Urea nitrogen [Mass/Vol] 9 mg/dL 4-19 [facility] Serum peanut IgE antibody as say (units/volume)Ordered By: Quang Myles on 08-08-2024 Peanut IgE Qn (S) <0.10 kU/L Class 0 [facility] Serum perinuclear neutrophil cytoplasmic antibody titer by immunofluorescenceOrdered By: Quang Myles on 08-08-2024 Neutrophil cytoplasmic Ab.perinuclear IF (S) [Titer] <1:20 titer Neg:<1:20 [facility] Serum soybean IgE antibody a ssay (units/volume)Ordered By: Quang Myles on 08-08-2024 Soybean IgE Qn (S) <0.10 kU/L Class 0 [facility] Serum tissue transglutaminas e (tTG) IgA antibody assay (units/volume)Ordered By: Quang Myles on 08-08-2024 tTG IgA Qn (S) <2 U/mL 0-3 [facility] Serum wheat IgE antibody ass ay (units/volume)Ordered By: Quang Myles on 08-08-2024 Wheat IgE Qn (S) <0.10 kU/L Class 0 [facility] Sodium levelOrdered By: Wendy Au on 08-08-2024 Sodium [Moles/Vol] 138 mmol/L 133-145 [facility] TSH DL <= 0.005 mIU/L QnOrde red By: Quang Myles on 08-08-2024 TSH Qn 2.360 uIU/mL 0.300-4.20 0 [facility] Thyroid Stim Hormone (TSH)on 08-08-2024 TSH 2.360 uIU/mL Normal 0.300-4.20 0 [facility] Comment on above: Performed By: #### L 503.5510, L3200.0500, L3100.5440, L5500.0410, L3100.3425, L503.6150, L3300.0100, L3100.1850, L504.2610, L100.9950, L3300.1200, L100.0100, L501.9520, L300.3900, L3410.2400, L3200.1100, L3100.6900, L101.9900, L500.4050, L501.6710, L501.9985, L3400.0700, L503.6550, L3300.1800 ####[facility] [address] [place], [place], [id number] Total proteinOrdered By: Luis Myles on 08-08-2024 Protein [Mass/Vol] 7.3 g/dL 5.9-8.4 [facility] Venous blood ammonia measure mentOrdered By: Quang Myles on 08-08-2024 Ammonia (P) [Moles/Vol] 36.2 umol/L 11-51 [facility] White blood cell (WBC) count Ordered By: Quang Myles on 08-08-2024 WBC (Bld) [#/Vol] 9.2 10*3/uL 4.4-11.0 [facility] Basic metabolic 2000 panelon 07-27-2024 Anion gap [Moles/Vol] 13 mmol/L Normal 8-15 [facility] Comment on above: Order Comment: Speci men Type: BLOOD SPECIMEN Ordering Facility: [facility] Address: [address] [place] [address] Performed By: #### 1 9123-9, 32205-7 #### [facility] CLIA [id number] [address] [place] [address] [place] Calcium [Mass/Vol] 10.3 mg/dL High 8.5-10.2 [facility] Comment on above: Order Comment: Speci men Type: BLOOD SPECIMEN Ordering Facility: [facility] Address: [address] [place] [address] Performed By: #### 1 9123-9, 26577-8 #### [facility] CLIA [id number] [address] [place] [address] [place] Chloride [Moles/Vol] 98 mmol/L Normal 98-107 [facility] Comment on above: Order Comment: Speci men Type: BLOOD SPECIMEN Ordering Facility: [facility] Address: [address] [place] [address] Performed By: #### 1 9123-9, 75451-0 #### [facility] CLIA [id number] [address] [place], [place] [address] [place] CO2 [Moles/Vol] 23 mmol/L Normal 22-30 [facility] Comment on above: Order Comment: Speci men Type: BLOOD SPECIMEN Ordering Facility: [facility] Address: [address] [place] [address] Performed By: #### 1 9123-9, 48371-6 #### [facility] CLIA [id number] [address] [place], [place] [address] [place] Creatinine [Mass/Vol] 0.88 mg/dL Normal 0.58-0.96 [facility] Comment on above: Order Comment: David horton Type: BLOOD SPECIMEN Ordering Facility: [facility] Address: [address] [place] [address] Performed By: #### 1 9123-9, 68243-2 #### [facility] CLIA [id number] [address] [place] [address] [place] [facility] Creatinine and Glomerular filtration rate.predicted panel (S/P/Bld) 83 mL/min/1.73m??? Normal >=60 [facility] Comment on above: Order Comment: David horton Type: BLOOD SPECIMEN Ordering Facility: [facility] Address: [address] [place] [address] Result Comment: Sandie mated Glomerular Filtration Rate [...] actual GFR. Performed By: #### 1 9123-9, 26893-8 #### [facility] CLIA [id number] [address] [place] [address] [place] Glucose [Mass/Vol] 84 mg/dL Normal 74-99 [facility] Comment on above: Order Comment: David horton Type: BLOOD SPECIMEN Ordering Facility: [facility] Address: [address] [place] [address] Result Comment: The [place] [employer] (ADA) provides guidance for cutoff [...] Standards of Medical Care in Diabetes 2016, [place] [employer]. Diabetes Care. 2016.39(Suppl 1). Performed By: #### 1 9123-9, 33660-2 #### [facility] CLIA [id number] [address] [place] [address] [place] Potassium [Moles/Vol] 5.4 mmol/L High 3.7-5.1 [facility] Comment on above: Order Comment: Speci men Type: BLOOD SPECIMEN Ordering Facility: [facility] Address: [address] [place] [address] Performed By: #### 1 9123-9, 95269-1 #### [facility] CLIA [id number] [address] [place] [address] [place] Sodium [Moles/Vol] 134 mmol/L Low 136-144 [facility] Comment on above: Order Comment: Speci men Type: BLOOD SPECIMEN Ordering Facility: [facility] Address: [address] [place] [address] Performed By: #### 1 9123-9, 97785-0 #### [facility] CLIA [id number] [address] [place] [address] [place] Urea nitrogen [Mass/Vol] 25 mg/dL High 7-21 [facility] Comment on above: Order Comment: Speci men Type: BLOOD SPECIMEN Ordering Facility: [facility] Address: [address] [place] [address] Performed By: #### 1 9123-9, 46211-4 #### [facility] CLIA [id number] [address] [place] [address] [place] CBC panel Auto (Bld)on 07-27 Erythrocyte distribution width (RBC) [Ratio] 14.0 % Normal 11.5-15.0 [facility] Comment on above: Order Comment: Speci men Type: BLOOD SPECIMEN Ordering Facility: [facility] Address: [address] [place] [address] Performed By: #### 5 8410-2 #### [facility] CLIA [id number] [address] [place] [address] [place] Hematocrit (Bld) [Volume fraction] 55.3 % High 36.0-46.0 [facility] Comment on above: Order Comment: Speci men Type: BLOOD SPECIMEN Ordering Facility: [facility] Address: [address] [place] [address] Performed By: #### 5 8410-2 #### [facility] CLIA [id number] [address] [place] [address] [place] Hemoglobin (Bld) [Mass/Vol] 18.1 g/dL High 11.5-15.5 [facility] Comment on above: Order Comment: Speci men Type: BLOOD SPECIMEN Ordering Facility: [facility] Address: [address] [place] [address] Performed By: #### 5 8410-2 #### [facility] CLIA [id number] [address] [place] [address] [place] MCH (RBC) [Entitic mass] 31.5 pg Normal 26.0-34.0 [facility] Comment on above: Order Comment: Speci men Type: BLOOD SPECIMEN Ordering Facility: [facility] Address: [address] [place] [address] Performed By: #### 5 8410-2 #### [facility] CLIA [id number] [address] [place] [address] [place] MCHC (RBC) [Mass/Vol] 32.7 g/dL Normal 30.5-36.0 [facility] Comment on above: Order Comment: Speci men Type: BLOOD SPECIMEN Ordering Facility: [facility] Address: [address] [place] [address] Performed By: #### 5 8410-2 #### [facility] CLIA [id number] [address] [place] [address] [place] MCV (RBC) [Entitic vol] 96.3 fL Normal 80.0-100.0 [facility] Comment on above: Order Comment: Speci men Type: BLOOD SPECIMEN Ordering Facility: [facility] Address: [address] [place] [address] Performed By: #### 5 8410-2 #### [facility] CLIA [id number] [address] [place] [address] [place] Nucleated RBC (Bld) [#/Vol] 10*3/uL Normal <0.01 [facility] Comment on above: Order Comment: Speci men Type: BLOOD SPECIMEN Ordering Facility: [facility] Address: [address] [place] [address] Performed By: #### 5 8410-2 #### [facility] CLIA [id number] [address] [place] [address] [place] Platelet mean volume (Bld) [Entitic vol] 9.5 fL Normal 9.0-12.7 [facility] Comment on above: Order Comment: Speci men Type: BLOOD SPECIMEN Ordering Facility: [facility] Address: [address] [place] [address] Performed By: #### 5 8410-2 #### [facility] CLIA [id number] [address] [place] [address] [place] Platelets (Bld) [#/Vol] 385 10*3/uL Normal 150-400 [facility] Comment on above: Order Comment: Speci men Type: BLOOD SPECIMEN Ordering Facility: [facility] Address: [address] [place] [address] Performed By: #### 5 8410-2 #### [facility] CLIA [id number] [address] [place] [address] [place] RBC (Bld) [#/Vol] 5.74 10*6/uL High 3.90-5.20 [facility] Comment on above: Order Comment: Speci men Type: BLOOD SPECIMEN Ordering Facility: [facility] Address: [address] [place] [address] Performed By: #### 5 8410-2 #### [facility] CLIA [id number] [address] [place] [address] [place] WBC (Bld) [#/Vol] 12.54 10*3/uL High 3.70-11.00 [facility] Comment on above: Order Comment: Speci men Type: BLOOD SPECIMEN Ordering Facility: [facility] Address: [address] [place] [address] Performed By: #### 5 8410-2 #### [facility] CLIA [id number] [address] [place] [address] OF [place] CNDSon 07-27-2024 CNDS HNO ID: [id number] Author: CASE FONSECA MD Service: Cardiovascular Medicine Author Type: Physician Shipping Clerk Crating Type: Discharge Summary Filed: 08/08/2024 18:58 Note Text: -------- Attestation signed by Case Fonseca MD at 08/08/2024 6:58 PM As above -------- Department of Cardiovascular Medicine Discharge Summary (Template ID [id number]) PATIENT NAME: Michelle Mitchell ADMISSION DATE: 07/24/2024 [...] of lower extremity Yes Current use of superintendent container terminal anticoagulation Yes Insomnia Yes Heart valve vegetation [...] display. Reason for Hospitalization: Patient transferred to [facility] from [place] for concerns for ADHF and hx of [...] follow up with her local PCP and rn utilization management um in [place]. Consults: Infectious Disease, Electrophysiology, and Psychiatry Major [...] Other: See Comments suicidal ideations Azithromycin Intolerance [place] Anaphylaxis [place] Anaphylaxis pickles Fish Anaphylaxis Levofloxacin In D5w [...] Your Medications These medications were sent to [id number] - [place] [address] - [address] [place] [address] - [id number] [place] [address] metoprolol succinate ER 25 mg 24 hr tablet Transitions of Care Critical Issues: Outpatient Management: * Are there important medication changes and/or outstanding issues that need to be addressed: See Above * What is the plan for follow up: Follow up with local PCP and rn utilization management um in [place] Future Appointments: No future appointments. Highest Readmis (more content not included)... Normal [facility] Culture, Blood (WB)on 2024 CUB No growth in 5 days. Normal [facility] Comment on above: Performed By: #### M 200.1000 ####[facility] [id number] [place], [address] Magnesium SerPl-mCncon 07-27 Magnesium [Mass/Vol] 2.3 mg/dL Normal 1.7-2.3 [facility] Comment on above: Order Comment: Speci men Type: BLOOD SPECIMEN Ordering Facility: [facility] Address: [address] [place] [address] Performed By: #### 1 9123-9, 93082-8 #### [facility] CLIA [id number] [address] [place] [address] [place] [address] [place] PT EDon 07-27-2024 PT ED HNO ID: [id number] Author: IRLANDA MOORE RPh Service: Pharmacy Author [...] FURTHER RECOMMENDATIONS (IF ANY): n/a Irlanda Moore [facility] PAGER: [phone] [facility] PT ED HNO ID: [id number] Author: JARVIS PALOMINO DTR Service: Nutrition Therapy Author Type: Host Coordinator Type: Patient Education Filed: 07/27/2024 08:38 Note [...] July 27, 2024 TIME: 8:38 AM PAGER: [facility] ALLIED HEALTH 07-26-2024 ALLIED HEALTH HNO ID: [id number] Author: MARGARETTE JONES, Art Therapist Service: Art [...] Will follow up as able. SIGNATURE: Margarette Jones, Art Therapist PATIENT NAME: Michelle Mitchell DATE: July 26, 2024 TIME: 4:40 PM PAGER/CONTACT #: [phone] Normal [facility] Basic metabolic 2000 panelon 07-26-2024 Anion gap [Moles/Vol] 14 mmol/L Normal -15 [facility] Comment on above: Order Comment: Speci men Type: BLOOD SPECIMEN Ordering Facility: [facility] Address: [address] [place] [address] Performed By: #### 1 9123-9, 47145-1 #### [facility] CLIA [id number] [address] [place] [address] [id number] [address] [place] Calcium [Mass/Vol] 9.4 mg/dL Normal 8.5-10.2 [facility] Comment on above: Order Comment: Speci men Type: BLOOD SPECIMEN Ordering Facility: [facility] Address: [address] [place] [address] Performed By: #### 1 9123-9, 55554-0 #### [facility] CLIA [id number] [address] [place], [place] [address] [place] Chloride [Moles/Vol] 98 mmol/L Normal 98-107 [facility] Comment on above: Order Comment: Speci men Type: BLOOD SPECIMEN Ordering Facility: [facility] Address: [address] [place] [address] Performed By: #### 1 9123-9, 45437-7 #### [facility] CLIA [id number] [address] [place] [address] [place] CO2 [Moles/Vol] 24 mmol/L Normal 22-30 [facility] Comment on above: Order Comment: Speci men Type: BLOOD SPECIMEN Ordering Facility: [facility] Address: [address] [place] [address] Performed By: #### 1 9123-9, 36563-2 #### [facility] CLIA [id number] [address] [place], [place] [address] [place] Creatinine [Mass/Vol] 1.02 mg/dL High 0.58-0.96 [facility] Comment on above: Order Comment: Speci men Type: BLOOD SPECIMEN Ordering Facility: [facility] Address: [address] [place] [address] Performed By: #### 1 9123-9, 55550-0 #### [facility] CLIA [id number] [address] [place], [place] [id number] [place] Creatinine and Glomerular filtration rate.predicted panel (S/P/Bld) 70 mL/min/1.73m??? Normal >=60 [facility] Comment on above: Order Comment: David horton Type: BLOOD SPECIMEN Ordering Facility: [facility] Address: [address] [place] [address] Result Comment: Sandie mated Glomerular Filtration Rate [...] actual GFR. Performed By: #### 1 9123-9, 84526-2 #### [facility] CLIA [id number] [address] [place] [address] [place] Glucose [Mass/Vol] 98 mg/dL Normal 74-99 [facility] Comment on above: Order Comment: David horton Type: BLOOD SPECIMEN Ordering Facility: [facility] Address: [address] [place] [address] Result Comment: The [place] Diabetes Association (ADA) provides guidance for cutoff [...] Standards of Medical Care in Diabetes 2016, [place] [employer]. Diabetes Care. 2016.39(Suppl 1). Performed By: #### 1 9123-9, 72502-7 #### [facility] CLIA [id number] [address] [place] [address] [place] Potassium [Moles/Vol] 4.5 mmol/L Normal 3.7-5.1 [facility] Comment on above: Order Comment: David horton Type: BLOOD SPECIMEN Ordering Facility: [facility] Address: [address] [place] [address] Performed By: #### 1 9123-9, 86206-0 #### [facility] CLIA [id number] [address] [place] [address] [place] Sodium [Moles/Vol] 136 mmol/L Normal 136-144 [facility] Comment on above: Order Comment: Speci men Type: BLOOD SPECIMEN Ordering Facility: [facility] Address: [address] [place] [address] Performed By: #### 1 9123-9, 23956-2 #### [facility] CLIA [id number] [address] [place] [address] [place] Urea nitrogen [Mass/Vol] 29 mg/dL High 7-21 [facility] Comment on above: Order Comment: Speci men Type: BLOOD SPECIMEN Ordering Facility: [facility] Address: [address] [place] [address] Performed By: #### 1 9123-9, 37759-4 #### [facility] CLIA [id number] [address] [place] [address] [place] CBC panel Auto (Bld)on 07-26 Erythrocyte distribution width (RBC) [Ratio] 14.1 % Normal 11.5-15.0 [facility] Comment on above: Order Comment: Speci men Type: BLOOD SPECIMEN Ordering Facility: [facility] Address: [address] [place] [address] Performed By: #### 5 8410-2 #### [facility] CLIA [id number] [address] [place] [address] [place] Hematocrit (Bld) [Volume fraction] 50.7 % High 36.0-46.0 [facility] Comment on above: Order Comment: Speci men Type: BLOOD SPECIMEN Ordering Facility: [facility] Address: [address] [place] [address] Performed By: #### 5 8410-2 #### [facility] CLIA [id number] [address] [place] [address] [place] Hemoglobin (Bld) [Mass/Vol] 16.3 g/dL High 11.5-15.5 [facility] Comment on above: Order Comment: Speci men Type: BLOOD SPECIMEN Ordering Facility: [facility] Address: [address] [place] [address] Performed By: #### 5 8410-2 #### [facility] CLIA [id number] [address] [place] [address] [place] MCH (RBC) [Entitic mass] 31.3 pg Normal 26.0-34.0 [facility] Comment on above: Order Comment: Speci men Type: BLOOD SPECIMEN Ordering Facility: [facility] Address: [address] [place] [address] Performed By: #### 5 8410-2 #### [facility] CLIA [id number] [address] [place] [address] [place] MCHC (RBC) [Mass/Vol] 32.1 g/dL Normal 30.5-36.0 [facility] Comment on above: Order Comment: Speci men Type: BLOOD SPECIMEN Ordering Facility: [facility] Address: [address] [place] [address] Performed By: #### 5 8410-2 #### [facility] CLIA [id number] [address] [place] [address] [place] MCV (RBC) [Entitic vol] 97.3 fL Normal 80.0-100.0 [facility] Comment on above: Order Comment: Speci men Type: BLOOD SPECIMEN Ordering Facility: [facility] Address: [address] [place] [address] Performed By: #### 5 8410-2 #### [facility] CLIA [id number] [address] [place] [address] [place] Nucleated RBC (Bld) [#/Vol] 10*3/uL Normal <0.01 [facility] Comment on above: Order Comment: Speci men Type: BLOOD SPECIMEN Ordering Facility: [facility] Address: [address] [place] [address] Performed By: #### 5 8410-2 #### [facility] CLIA [id number] [address] [place] [address] [place] Platelet mean volume (Bld) [Entitic vol] 9.8 fL Normal 9.0-12.7 [facility] Comment on above: Order Comment: Speci men Type: BLOOD SPECIMEN Ordering Facility: [facility] Address: [address] [place] [address] Performed By: #### 5 8410-2 #### [facility] CLIA [id number] [address] [place] [address] [place] Platelets (Bld) [#/Vol] 344 10*3/uL Normal 150-400 [facility] Comment on above: Order Comment: Speci men Type: BLOOD SPECIMEN Ordering Facility: [facility] Address: [address] [place] [address] Performed By: #### 5 8410-2 #### [facility] CLIA [id number] [address] [place] [address] [place] RBC (Bld) [#/Vol] 5.21 10*6/uL High 3.90-5.20 [facility] Comment on above: Order Comment: Speci men Type: BLOOD SPECIMEN Ordering Facility: [facility] Address: [address] [place] [address] Performed By: #### 5 8410-2 #### [facility] CLIA [id number] [address] [place] [address] [place] WBC (Bld) [#/Vol] 15.07 10*3/uL High 3.70-11.00 [facility] Comment on above: Order Comment: Speci men Type: BLOOD SPECIMEN Ordering Facility: [facility] Address: [address] [place] [address] Performed By: #### 5 8410-2 #### [facility] CLIA [id number] [address] [place] [address] [place] [address] [place] CNOVon 07-26-2024 CNOV Office Visit ([place] ) -------- MICHELLE MITCHELL ([id number]) 1980 F Date Time Provider Department 07/26/24 8:15 AM PULM [facility] J-2 [place] During your visit today, we recorded the following information about you: Referring Provider: TEJAL RODRÍGUEZ [[id number]] Allergies As of Date: 07/26/2024 Noted Allergy [...] [Z85.41] 07/12 (more content not included)... Normal [facility] CNOV Office Visit ([place] ) -------- MICHELLE MITCHELL ([id number]) 1980 F Date Time Provider Department 07/26/24 8:00 AM PUL [facility] LAB J-2 [place] During your visit today, we recorded the following information about you: Referring Provider: TEJAL RODRÍGUEZ [[id number]] Allergies As of Date: 07/26/2024 Noted Allergy [...] [Z85.41] 07/12 (more content not included)... 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 A week after discharge, she started having diffuse abdominal pain with distention associated with nausea, facial swelling. She was seen in [place] ED twice and was discharged home. She was then advised to go to [facility] and was admitted on 07/04/2024. Per GI [...] duodenum. She was then transferred to the [facility] [place] on 07/24/2024 as she was noted to have some lesion around ICD concerning for vegetation/endocarditis. At present, patient is being treated for heart failure exacerbation and also being worked up by ID. Prior VTE history (personal/ family) Per chart review, patient had several presentations to ED due to chest pain for the last 2 years. In 2016, she went to [facility] ED with chest pain and further workup revealed acute PE in the right lower lobe diagnosed on 11/29/2016. She was then discharged on Xarelto. Due to intermittent episodes of severe chest pain, she ended up getting CT chest every month to reevaluate pulmonary artery. She then followed up with Dr. Armstrong (Hem/Onc) who recommeded superintendent container terminal AC due to uprovoked PE. Xarelto was [...] BRCA mutation checked while she was in [facility]. FAMILY HISTORY: family history includes Breast [...] Other: See Comments suicidal ideations Azithromycin Intolerance [place] Anaphylaxis [place] Anaphylaxis pickles Fish Anaphylaxis Levofloxacin In D5w [...] screening done (more content not included)... Normal [facility] CONSULT PROGon 07-26-2024 CONSULT PROG HNO ID: [id number] Author: ROSAMARIA HAJI MD Service: Electrophysiology Author [...] found for the last 365 days. Normal [facility] CONSULT PROG HNO ID: [id number] Author: DAINA MCPHERSON MD Service: Infectious Disease [...] primary team. 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1980 Requested By: Order Number: [id number] [...] 11:31:34 EDT by Dex Ch MD ID: [id number] Name: SALMAN, MICHELLE J Race: White Ht: 63.15 in Wt: 125.44 [...] FIF50 4.29 FEF50/FIF50 0.36 90-100 FIVC 2.81 NQU74-18 1.16 1.71 2.91 4.40 39 -2.58 ExpiredTime [...] 82 % FEV1/FVC_LLN (%) : 71 % CIA72_BTG (L/S) : 3.39 L/S TAE22_EIG (L/S) : 0.45 L/S UUB92_NBVG (L/S) : 1.04 L/S CQL89_XWL (L/S) : 0.48 L/S ZOU86_XBG (L/S) : 2.06 L/S PJW14-76%_PRE (L/S) : 1.16 L/S EWH89-98%_PRED (L/S) : 2.91 L/S PDK38-26%_LLN (L/S) : 1.71 L/S PEF_PRE (L/S) : [...] ml/min/mmHg DLCO/VACOR (ML/MIN/MMHG/L) : 0.04 ml/min/mmHg/L Normal [facility] Magnesium SerPl-mCncon 07-26 Magnesium [Mass/Vol] 2.3 mg/dL Normal 1.7-2.3 [facility] Comment on above: Order Comment: Speci men Type: BLOOD SPECIMEN Ordering Facility: [facility] Address: [address] [place] [address] Performed By: #### 1 9123-9, 37871-7 #### [facility] CLIA [id number] [address] [place] [address] [place] PTT, ANTICOAGULANT THERAPYon 07-26-2024 aPTT Coag (PPP) [Time] 26.1 s Normal 23.0-32.4 [facility] Comment on above: Order Comment: Speci men Type: BLOOD SPECIMENOrdering Facility: [facility] Address: [address] [place] [address] Performed By: #### P TTAC ####[facility] [id number] [place] [address] [place] aPTT Coag (PPP) [Time] 94.8 s High 23.0-32.4 [facility] Comment on above: Order Comment: Speci men Type: BLOOD SPECIMEN Ordering Facility: [facility] Address: [address] [place] [address] Performed By: #### 5 8410-2 #### [facility] CLIA [id number] [address] [place] [address] [place] aPTT Coag (PPP) [Time] 64.9 s High 23.0-32.4 [facility] Comment on above: Order Comment: Speci men Type: BLOOD SPECIMENOrdering Facility: [facility] Address: [address] [place] [address] Performed By: #### P TTAC ####[facility] [id number] [id number] [place], [place] [address] [place] SPIROMETRY BASELINE ONLYon 0 07-26-2024 SPIROMETRY BASELINE ONLY [facility] [address] [place] [address] Test Date: 2024-07-26 Pat Name: MICHELLE MITCHELL Department: Room: [place] [address] Gender: Female 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1980 Requested By: Order Number: [id number] [...] 11:31:34 EDT by Dex Ch MD ID: [id number] Name: MICHELLE MITCHELL Race: White Ht: 63.15 [...] FIF50 4.29 FEF50/FIF50 0.36 90-100 FIVC 2.81 OUQ74-63 1.16 1.71 2.91 4.40 39 -2.58 ExpiredTime [...] obtained from [facility] on 07/26/2024.//KJ Normal [facility] Basic metabolic 2000 panelon 07-25-2024 Anion gap [Moles/Vol] 11 mmol/L Normal 8-15 [facility] Comment on above: Order Comment: Speci men Type: BLOOD SPECIMEN Ordering Facility: [facility] Address: [address] [place] [address] Performed By: #### 5 8410-2 #### [facility] CLIA [id number] [address] [place] [address] [place] Calcium [Mass/Vol] 9.8 mg/dL Normal 8.5-10.2 [facility] Comment on above: Order Comment: Speci men Type: BLOOD SPECIMEN Ordering Facility: [facility] Address: [address] [place] [address] Performed By: #### 5 8410-2 #### [facility] CLIA [id number] [address] [place] [address] [place] Chloride [Moles/Vol] 97 mmol/L Low 98-107 [facility] Comment on above: Order Comment: Speci men Type: BLOOD SPECIMEN Ordering Facility: [facility] Address: [address] [place] [address] Performed By: #### 5 8410-2 #### [facility] CLIA [id number] [address] [place] [address] [place] CO2 [Moles/Vol] 27 mmol/L Normal 22-30 [facility] Comment on above: Order Comment: Speci men Type: BLOOD SPECIMEN Ordering Facility: [facility] Address: [address] [place] [address] Performed By: #### 5 8410-2 #### [facility] CLIA [id number] [address] [place] [address] [place] Creatinine [Mass/Vol] 1.10 mg/dL High 0.58-0.96 [facility] Comment on above: Order Comment: Speci men Type: BLOOD SPECIMEN Ordering Facility: [facility] Address: [address] [place] [address] Performed By: #### 5 8410-2 #### [facility] [place] [id number] [address] [place] [address] [place] [facility] Creatinine and Glomerular filtration rate.predicted panel (S/P/Bld) 64 mL/min/1.73m??? Normal >=60 [facility] Comment on above: Order Comment: Speci men Type: BLOOD SPECIMEN Ordering Facility: [facility] Address: [address] [place] [address] Result Comment: Sandie mated Glomerular Filtration Rate [...] GFR. Performed By: #### 5 8410-2 #### [facility] CLIA [id number] [address] [place] [address] [place] Glucose [Mass/Vol] 81 mg/dL Normal 74-99 [facility] Comment on above: Order Comment: Speci men Type: BLOOD SPECIMEN Ordering Facility: [facility] Address: [address] [place] [address] Result Comment: The [place] Diabetes [employer] (ADA) provides guidance for cutoff [...] Standards of Medical Care in Diabetes 2016, [place] [employer]. Diabetes Care. 2016.39(Suppl 1). Performed By: #### 5 8410-2 #### [facility] CLIA [id number] [address] [place] [address] [place] Potassium [Moles/Vol] 5.2 mmol/L High 3.7-5.1 [facility] Comment on above: Order Comment: Speci men Type: BLOOD SPECIMEN Ordering Facility: [facility] Address: [address] [place] [address] Performed By: #### 5 8410-2 #### [facility] CLIA [id number] [address] [place] [address] [place] Sodium [Moles/Vol] 135 mmol/L Low 136-144 [facility] Comment on above: Order Comment: Speci men Type: BLOOD SPECIMEN Ordering Facility: [facility] Address: [address] [place] [address] Performed By: #### 5 8410-2 #### [facility] CLIA [id number] [address] [place] [address] [place] Urea nitrogen [Mass/Vol] 31 mg/dL High 7-21 [facility] Comment on above: Order Comment: Speci men Type: BLOOD SPECIMEN Ordering Facility: [facility] Address: [address] [place] [address] Performed By: #### 5 8410-2 #### [facility] CLIA [id number] [address] [place] [address] [place] CBC panel Auto (Bld)on 07-25 Erythrocyte distribution width (RBC) [Ratio] 14.0 % Normal 11.5-15.0 [facility] Comment on above: Order Comment: Speci men Type: BLOOD SPECIMENOrdering Facility: [facility] Address: [address] [place] [address] Performed By: #### 5 8410-2 ####[facility] [id number] [place] [address] [place] Hematocrit (Bld) [Volume fraction] 50.1 % High 36.0-46.0 [facility] Comment on above: Order Comment: Speci men Type: BLOOD SPECIMENOrdering Facility: [facility] Address: [address] [place] [address] Performed By: #### 5 8410-2 ####[facility] [id number] [place] [address] [place] Hemoglobin (Bld) [Mass/Vol] 16.0 g/dL High 11.5-15.5 [facility] Comment on above: Order Comment: Speci men Type: BLOOD SPECIMENOrdering Facility: [facility] Address: [address] [place] [address] Performed By: #### 5 8410-2 ####[facility] [id number] [place] [address] [place] MCH (RBC) [Entitic mass] 31.1 pg Normal 26.0-34.0 [facility] Comment on above: Order Comment: Speci men Type: BLOOD SPECIMENOrdering Facility: [facility] Address: [address] [place] [address] Performed By: #### 5 8410-2 ####[facility] [id number] [place] [address] [place] MCHC (RBC) [Mass/Vol] 31.9 g/dL Normal 30.5-36.0 [facility] Comment on above: Order Comment: Speci men Type: BLOOD SPECIMENOrdering Facility: [facility] Address: [address] [place] [address] Performed By: #### 5 8410-2 ####[facility] [id number] [place] [address] [place] MCV (RBC) [Entitic vol] 97.5 fL Normal 80.0-100.0 [facility] Comment on above: Order Comment: Speci men Type: BLOOD SPECIMENOrdering Facility: [facility] Address: [address] [place] [address] Performed By: #### 5 8410-2 ####[facility] [id number] [place] [address] [place] Nucleated RBC (Bld) [#/Vol] 10*3/uL Normal <0.01 [facility] Comment on above: Order Comment: Speci men Type: BLOOD SPECIMENOrdering Facility: [facility] Address: [address] [place] [address] Performed By: #### 5 8410-2 ####[facility] [id number] [place] [address] [place] Platelet mean volume (Bld) [Entitic vol] 10.4 fL Normal 9.0-12.7 [facility] Comment on above: Order Comment: Speci men Type: BLOOD SPECIMENOrdering Facility: [facility] Address: [address] [place] [address] Performed By: #### 5 8410-2 ####[facility] [id number] [place] [address] [place] Platelets (Bld) [#/Vol] 386 10*3/uL Normal 150-400 [facility] Comment on above: Order Comment: Speci men Type: BLOOD SPECIMENOrdering Facility: [facility] Address: [address] [place] [address] Performed By: #### 5 8410-2 ####[facility] [id number] [place] [address] [place] RBC (Bld) [#/Vol] 5.14 10*6/uL Normal 3.90-5.20 [facility] Comment on above: Order Comment: Speci men Type: BLOOD SPECIMENOrdering Facility: [facility] Address: [address] [place] [address] Performed By: #### 5 8410-2 ####[facility] [id number] [place] [address] [place] WBC (Bld) [#/Vol] 21.49 10*3/uL High 3.70-11.00 [facility] Comment on above: Order Comment: Speci men Type: BLOOD SPECIMENOrdering Facility: [facility] Address: [address] [place] [address] Performed By: #### 5 8410-2 ####[facility] [id number] [place] [address] [place] CNOVon 07-25-2024 CNOV Office Visit ([place] ) -------- MICHELLE MITCHELL ([id number]) 1980 F Date Time Provider Department 07/25/24 2:00 PM IP TRANSESOPHAGEAL ECHO [facility] During your visit today, we recorded the following information about you: Temperature Pulse Respiration Blood pressure 98.2 degrees 61/minute 18/minute 110/57 BalDominguez kebede RN 07/25/2024 4:49 PM Signed ..AMBULATORY PATIENT [...] In Department: CARDIOLOGY Referring Provider: TEJAL RODRÍGUEZ [[id number]] Allergies As of Date: 07/25/2024 Noted Allergy [...] pain [R10.31] (more content not included)... Normal [facility] CONSULTon 07-25-2024 CONSULT HNO ID: [id number] Author: RADU RIVERS MD Service: Cardiovascular Medicine [...] TRANSVENOUS PACEMAKER INSERTION Apr. 2006 ICD implant, [facility] ANESTHESIA TUBAL LIGATION/TRANSECTION APPENDECTOMY 05/05/2014 [...] suicidal ideations Ativan [Lorazepam] Vomiting Azithromycin Intolerance [place] Anaphylaxis [place] Anaphylaxis pickles Fish Anaphylaxis Levofloxacin In D5w Swelling, Itching IV site swollen, ceased after d/c, redness and itching at site Neurontin [Gabapent* Mental Status Change Shellfish Anaphylaxis Tigan [Trimethobenz* Anaphylaxis Ultram [Tramadol] Hives Pt states she also pukes a lot Vicod (more content not included)... Normal [facility] ECG COMPLETEon 07-25-2024 ECG COMPLETE Ventricular Rate : 6 6 BPM Atrial Rate : 66 BPM P-R Interval : 156 ms QRS Duration : 86 ms Q-T Interval : 414 ms QTC Calculation(Bazett) : 434 ms Calculated P [place] : 18 degrees Calculated R [place] : -73 degrees Calculated T [place] : 73 degrees NORMAL SINUS RHYTHM BIATRIAL ENLARGEMENT LEFT ANTERIOR FASCICULAR BLOCK LEFT VENTRICULAR HYPERTROPHY ( Frisco product , Romhilt-Sheets ) ST & LATERAL T WAVE ABNORMALITY ABNORMAL ECG Confirmed by HIPOLITO DAVIS MD ([id number]) on 08/18/2024 10:33:24 PM NAME : MICHELLE MITCHELL PID : [id number] : 1980 Gender : Female Race : ORD : [id number] Procedure Date : Jul 25 2024 09:39:38 Edit Date : Aug 18 2024 22:33:30 Diagnosis: NORMAL SINUS RHYTHM BIATRIAL ENLARGEMENT LEFT ANTERIOR FASCICULAR BLOCK LEFT VENTRICULAR HYPERTROPHY ( Sunny product , Romhilt-Sheets ) ST & LATERAL T WAVE ABNORMALITY ABNORMAL ECG Confirmed by HIPOLITO DAVIS MD ([id number]) on 08/18/2024 10:33:24 PM Test Reason : Chest Pain Location : 353 : J53 J053-11 Overread By : HIPOLITO DAVIS MD Edited By : HIPOLITO DAVIS MD Referred By : MERCY BISHOP Acquired by : INGRID ANGELA [facility] ECHO TRANSESOPHAGEALon 07-25 ECHO TRANSESOPHAGEAL Echocardiography Re port: Transesophageal Echo [facility] J1-5 Date of service: 07/25/2024 3:16:24 PM 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 Ordering physician: TEJAL RODRÍGUEZ 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 [...] * * Final * * * CC [employer] Image : [id number] ID Normal [facility] HIGH SENSITIVITY TROPONIN To n 07-25-2024 Troponin T.cardiac High sensitivity method [Mass/Vol] 48 ng/L High <12 [facility] Comment on above: Order Comment: Speci men Type: BLOOD SPECIMENOrdering Facility: [facility] Address: [address] [place] [address] Performed By: #### H STNT ####[facility] [id number] [address] [place] Troponin T.cardiac High sensitivity method [Mass/Vol] 50 ng/L High <12 [facility] Comment on above: Order Comment: Speci men Type: BLOOD SPECIMENOrdering Facility: [facility] Address: [address] [place] [address] Performed By: #### H STNT ####[facility] [id number] [address] [place] Troponin T.cardiac High sensitivity method [Mass/Vol] 57 ng/L High <12 [facility] Comment on above: Order Comment: Speci men Type: BLOOD SPECIMEN Ordering Facility: [facility] Address: [address] [place] [address] Performed By: #### 5 8410-2 #### [facility] CLIA [id number] [address] [place] [address] [place] HbA1c (Bld)on 07-25-2024 Average glucose Estimated from glycated hemoglobin (Bld) [Mass/Vol] 111 mg/dL Normal [facility] Comment on above: Order Comment: Speci men Type: BLOOD SPECIMENOrdering Facility: [facility] Address: [address] [place] [address] Result Comment: eAG: (Estimated average glucose) is a calculated value from HgbA1c and is business office representative of the average blood glucose level in the last 2-3 month period. Performed By: #### 5 5454-3 ####[facility] [id number] [place] [address] [place] HbA1c (Bld) [Mass fraction] 5.5 % Normal 4.3-5.6 [facility] Comment on above: Order Comment: David horton Type: BLOOD SPECIMENOrdering Facility: [facility] Address: [address] [place] [address] Result Comment: Amer [place] Diabetes Association guidelines indicate that patients with HgbA1c in the range 5.7-6.4% are at increased risk for development of diabetes, and intervention by lifestyle modification may be beneficial. HgbA1c greater or equal to 6.5% is considered diagnostic of diabetes. Performed By: #### 5 5454-3 ####[facility] [id number] [address] [place] Magnesium SerPl-mCncon 07-25 Magnesium [Mass/Vol] 2.5 mg/dL High 1.7-2.3 [facility] Comment on above: Order Comment: David horton Type: BLOOD SPECIMEN Ordering Facility: [facility] Address: [address] [place] [address] Performed By: #### 5 8410-2 #### [facility] CLIA [id number] [address] [place], [place] [address] [place] [address] [place] NURSING PROGon 07-25-2024 NURSING PROG HNO ID: [id number] Author: DOMINGUEZ OBREGON RN Service: ? Author [...] Dominguez Obregon RN In Department: CARDIOLOGY Normal [facility] PTT, ANTICOAGULANT THERAPYon 07-25-2024 aPTT Coag (PPP) [Time] 48.6 s High 23.0-32.4 [facility] Comment on above: Order Comment: Speci sol Type: BLOOD SPECIMEN Ordering Facility: [facility] Address: [address] [place] [address] Performed By: #### 5 8410-2 #### [facility] CLIA [id number] [address] [place] [address] [place] aPTT Coag (PPP) [Time] 48.0 s High 23.0-32.4 [facility] Comment on above: Order Comment: Spectian horton Type: BLOOD SPECIMENOrdering Facility: [facility] Address: [address] [place] [address] Performed By: #### P TTA ####[facility] [id number] [place] [address] [place] TSH SerPl-aCncon 07-25-2024 TSH Qn 3.760 m[IU]/L Normal 0.270-4.20 0 [facility] Comment on above: Order Comment: David horton Type: BLOOD SPECIMEN Ordering Facility: [facility] Address: [address] [place] [address] Result Comment: If t he patient is , TSH reference range varies by gestational period: First Trimester (weeks 9-12): 0.180-2.990 mIU/L Second Trimester: 0.110-3.980 mIU/L Third Trimester: 0.480-4.710 mIU/L Bacilio Lay et al. A Practical Approach for the Verifications and Determination of Site- and Trimester-Specific Reference Intervals for Thyroid Function tests in . Thyroid, 2019:29:3:412-420. Lopez Recio, et al. 2017 Guidelines of the [place] Thyroid Association for the Diagnosis and Management of Thyroid Disease during and the . Thyroid, 2017:27:3:315-389. Performed By: #### 5 8410-2 #### [facility] CLIA [id number] [facility] [place] [address] [place] [facility] LEG VEIN D[facility] LABo n 07-25-2024 [facility] Non-Invasive Vascular Laboratory [facility] Portable Lower Extremity Venous Duplex Bilateral/Complete Date [...] RODRÍGUEZ Interpreting physician: Joey Kowalski DO, RVT, KANDICE Final CC [employer] Image : [id number] ID See Link below for Image Normal [facility] Bacteria Bld Culton 07-25-19 25 Bacteria identified Cx Nom (Bld) CULTURE, BLOOD: No growth 5 days Normal [facility] Comment on above: Performed By: #### 6 00-7 ####[facility] [id number] [address] OF [facility] CONSULTon 07-24-2024 CONSULT HNO ID: [id number] Author: DAINA MCPHERSON MD Service: Infectious Disease [...] 05/16-05/22/24. She presented with abdominal pain around [facility], for which she had presented several times [...] PERMANENT TRANSVENOUS PACEMAKER INSERTION 2006 ICD implant, [facility] ANESTHESIA TUBAL LIGATION/TRANSECTION APPENDECTOMY 05/05/2014 [...] suicidal ideations Ativan [Lorazepam] Vomiting Azithromycin Intolerance [place] Anaphylaxis [place] Anaphylaxis pickles Fish Anaphylaxis Levofloxacin In D5w [...] 2006, deloris (more content not included)... Normal [facility] CRP SerPl HS-mCncon 07-25-19 25 CRP High sensitivity method [Mass/Vol] 0.9 mg/L Normal <3.1 [facility] Comment on above: Order Comment: Speci men Type: BLOOD SPECIMEN Ordering Facility: [facility] Address: [address] [place] [address] Result Comment: hsCR P < 1.0 mg/L, relative risk is low hsCRP 1.0-3.0 mg/L, relative risk is average hsCRP > 3.0 mg/L, relative risk is high Reference: Yunior TA, Chen PRATER, Lopez TOM, et al. Markers of Inflammation and Cardiovascular Disease. Application to Clinical and Public Health Practice. A Statement for Healthcare Professionals from the Centers for Disease Control and Prevention and the [place] Heart Association. Circulation 2003;107:499-511. Performed By: #### 1 9123-9, 26425-9 #### [facility] CLIA [id number] [address] [place] [address] [place] GPT25he 07-24-2024 ECG01 Ventricular Rate : 6 4 BPM Atrial Rate : 64 BPM P-R Interval : 156 ms QRS Duration : 84 ms Q-T Interval : 426 ms QTC Calculation(Bazett) : 439 ms Calculated P [place] : 29 degrees Calculated R [place] : 259 degrees Calculated T [place] : 62 degrees NORMAL SINUS RHYTHM BIATRIAL ENLARGEMENT RIGHT SUPERIOR AXIS DEVIATION LEFT VENTRICULAR HYPERTROPHY RIGHT VENTRICULAR HYPERTROPHY NONSPECIFIC ST ABNORMALITY ABNORMAL ECG Confirmed by MERCY BRADFORD MD (65) on 08/25/2024 3:54:02 PM NAME : MICHELLE MITCHELL PID : [id number] : 1980 Gender : Female Race : [...] : MERCY BRADFORD MD Referred By : DENIA, Acquired by : Carlos Eduardo BONNER [facility] ECHOon 07-24-2024 Echocardiography Echocardiography Rep ort: Transthoracic Echo [facility] Bedside Date of service: 07/24/2024 3:02:30 PM 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 Mobile echodensity reported today as above. MICKI may better assesss. * * * Final * * * [employer] Image : [id number] ID Normal [facility] ESR Westergren method (Bld) [Velocity]on 07-24-2024 ESR (Bld) [Velocity] 2 mm/h Normal 0-20 [facility] Comment on above: Order Comment: Speci men Type: BLOOD SPECIMENOrdering Facility: [facility] Address: [address] [place] [address] Performed By: #### 4 537-7 ####[facility]IA [id number] [place] [address] [place] HCG Preg Ur Qlon 07-24-2024 HCG ( test) Ql (U) Negative Normal Negative [facility] Comment on above: Order Comment: Speci men Type: BLOOD SPECIMEN Ordering Facility: [facility] Address: [address] [place] [id number] Result Comment: This test is intended to aid in the early detection of . Very dilute urine samples, as indicated by a low specific gravity, may not contain business office representative levels of hCG. This test detects [...] for . Performed By: #### 1 9123-9, 67478-4 #### [facility] CLIA [id number] [address] [place] [address] [place] HISTORY PHYSICALon HISTORY PHYSICAL HNO ID: [id number] Author: CASE FONSECA MD Service: Cardiovascular Medicine Author Type: Physician Type: H&P Filed: 07/25/2024 10:09 Note Text: [facility] CARDIOVASCULAR MEDICINE HISTORY AND PHYSICAL Michelle Mitchell [id number] PRIMARY SERVICE: Cardiovascular Medicine: Imaging DATE OF [...] states she began having abdominal issues around [facility], she went to [facility] for EGD/ colonoscopy, multiple biopsies taken. [...] TRANSVENOUS PACEMAKER INSERTION Apr. 2006 ICD implant, [facility] ANESTHESIA TUBAL LIGATION/TRANSECTION APPENDECTOMY 05/05/2014 [...] 10 mg (more content not included)... Normal [facility] NT-proBNP SerPl-ncon 07-24 Natriuretic peptide.B prohormone N-Terminal [Mass/Vol] 3054 pg/mL High <125 [facility] Comment on above: Order Comment: Speci men Type: BLOOD SPECIMEN Ordering Facility: [facility] Address: [address] [place] [address] Performed By: #### 5 8410-2 #### [facility] CLIA [id number] [address] [place] [address] [place] [address] [place] PTT, ANTICOAGULANT THERAPYon 07-24-2024 aPTT Coag (PPP) [Time] 32.1 s Normal 23.0-32.4 Cl [facility] Comment on above: Order Comment: Speci men Type: BLOOD SPECIMEN Ordering Facility: [facility] Address: [address] [place] [address] Performed By: #### 1 9123-9, 40069-8 #### [facility] CLIA [id number] [address] [place] [address] [place] TOXICOLOGY SCREEN, ROUTINE U RINEon 07-24-2024 Amphetamines Confirm (U) [Mass/Vol] Negative Normal Negative [facility] Comment on above: Order Comment: Speci men Type: BLOOD SPECIMEN Ordering Facility: [facility] Address: [address] [place] [address] Result Comment: Cuto ff threshold at 1000 ng/mL. Performed By: #### 1 9123-9, 52109-6 #### [facility] CLIA [id number] [address] [place] [address] [place] BARBITURATES, URINE Negative Normal Negative [facility] Comment on above: Order Comment: Speci men Type: BLOOD SPECIMEN Ordering Facility: [facility] Address: [address] [place] [address] Result Comment: Cuto ff threshold at 200 ng/mL. Performed By: #### 1 9123-9, 91855-6 #### [facility] CLIA [id number] [address] [place] [address] [place] BENZODIAZEPINES, UR Negative Normal Negative [facility] Comment on above: Order Comment: Speci men Type: BLOOD SPECIMEN Ordering Facility: [facility] Address: [address] [place] [address] Result Comment: Cuto ff threshold at 200 ng/mL. Performed By: #### 1 9123-9, 74644-4 #### [facility] CLIA [id number] [address] [place], [place] [address] [place] Cannabinoids Screen Ql (U) Negative Normal Negative [facility] Comment on above: Order Comment: Speci men Type: BLOOD SPECIMEN Ordering Facility: [facility] Address: [address] [place] [address] Result Comment: Cuto ff threshold at 50 ng/mL. Performed By: #### 1 9123-9, 24851-7 #### [facility] CLIA [id number] [address] [place] [address] [place] Cocaine Ql (U) Negative Normal Negative [facility] Comment on above: Order Comment: Speci men Type: BLOOD SPECIMEN Ordering Facility: [facility] Address: [address] [place] [address] Result Comment: Cuto ff threshold at 300 ng/mL. Performed By: #### 1 9123-9, 44213-7 #### [facility] CLIA [id number] [address] [place] [address] [place] Ethanol (U) [Mass/Vol] <11 Normal <11 [facility] Comment on above: Order Comment: Speci men Type: BLOOD SPECIMEN Ordering Facility: [facility] Address: [address] [place] [address] Performed By: #### 1 9123-9, 84037-5 #### [facility] CLIA [id number] [address] [place] [address] [place] Opiates Screen Ql (U) Negative Normal Negative [facility] Comment on above: Order Comment: Speci men Type: BLOOD SPECIMEN Ordering Facility: [facility] Address: [address] [place] [address] Result Comment: Cuto ff threshold at 300 ng/mL. Performed By: #### 1 9123-9, 80992-3 #### [facility] CLIA [id number] [address] [place] [address] [place] oxyCODONE cutoff Screen (U) [Mass/Vol] Positive Abnormal Negative [facility] Comment on above: Order Comment: Speci men Type: BLOOD SPECIMEN Ordering Facility: [facility] Address: [address] [place] [address] Result Comment: Cuto ff threshold at 100 ng/mL. Performed By: #### 1 9123-9, 24636-1 #### [facility] CLIA [id number] [address] [place] [address] [place] Phencyclidine Ql (U) Negative Normal Negative [facility] Comment on above: Order Comment: Speci men Type: BLOOD SPECIMEN Ordering Facility: [facility] Address: [address] [place] [address] Result Comment: Cuto ff threshold at 25 ng/mL. Performed By: #### 1 9123-9, 12047-3 #### [facility] CLIA [id number] [address] [place] [address] [place] TYPE + SCREENon 07-24-2024 ABO A Normal [facility] Comment on above: Order Comment: Speci men Type: BLOOD SPECIMEN Ordering Facility: [facility] Address: [address] [place] [address] Performed By: #### 5 8410-2 #### [facility] CLIA [id number] [address] [place] [address] [place] Rh Nom (Bld) Positive Normal [facility] Comment on above: Order Comment: Speci men Type: BLOOD SPECIMEN Ordering Facility: [facility] Address: [address] [place] [address] Performed By: #### 5 8410-2 #### [facility] CLIA [id number] [address] [place] [address] [place] TYPE AND SCREEN EXPIRATION 07/27/2024 23:59 Normal [facility] Comment on above: Order Comment: Speci men Type: BLOOD SPECIMEN Ordering Facility: [facility] Address: [address] [place] [address] Performed By: #### 5 8410-2 #### [facility] CLIA [id number] [address] [place], [place] [address] [place] Urinalysis complete panel (U )on 07-24-2024 Bacteria LM.HPF (Urine sed) [#/Area] Negative Normal Negative [facility] Comment on above: Order Comment: Speci men Type: BLOOD SPECIMEN Ordering Facility: [facility] Address: [address] [place] [address] Performed By: #### 1 9123-9, 98058-8 #### [facility] CLIA [id number] [address] [place] [address] [place] Bilirubin Ql (U) Negative Normal Negative [facility] Comment on above: Order Comment: Speci men Type: BLOOD SPECIMEN Ordering Facility: [facility] Address: [address] [place] [address] Performed By: #### 1 9123-9, 50784-5 #### [facility] CLIA [id number] [address] [place] [address] [place] Clarity (Unsp spec) Clear Normal Clear [facility] Comment on above: Order Comment: Speci men Type: BLOOD SPECIMEN Ordering Facility: [facility] Address: [address] [place] [address] Performed By: #### 1 9123-9, 87924-5 #### [facility] CLIA [id number] [address] [place] [address] [place] Color (U) Yellow Normal Yellow [facility] Comment on above: Order Comment: Speci men Type: BLOOD SPECIMEN Ordering Facility: [facility] Address: [address] [place] [address] Performed By: #### 1 9123-9, 12126-5 #### [facility] CLIA [id number] [address] [place] [address] [place] Epithelial cells LM.HPF (Urine sed) [#/Area] None Seen Normal [facility] Comment on above: Order Comment: Speci men Type: BLOOD SPECIMEN Ordering Facility: [facility] Address: [address] [place] [address] Performed By: #### 1 9123-9, 80124-4 #### [facility] CLIA [id number] [address] [place] [address] [place] Glucose Test strip (U) [Mass/Vol] Trace Abnormal Negative [facility] Comment on above: Order Comment: Speci men Type: BLOOD SPECIMEN Ordering Facility: [facility] Address: [address] [place] [address] Performed By: #### 1 9, 88063-3 #### [facility] CLIA [id number] [address] [place] [address] [place] Hemoglobin Ql (U) Negative Normal Negative [facility] Comment on above: Order Comment: Speci men Type: BLOOD SPECIMEN Ordering Facility: [facility] Address: [address] [place] [address] Performed By: #### 1 919, 13771-2 #### [facility] CLIA [id number] [address] [place] [address] [place] Hyaline casts (Urine sed) [#/Area] 1-3 /LPF Abnormal 0 /LPF [facility] Comment on above: Order Comment: Speci men Type: BLOOD SPECIMEN Ordering Facility: [facility] Address: [address] [place] [address] Performed By: #### 1 9122-11, #### [facility] CLIA [id number] [address] [place], [place] [address] [place] Ketones Ql (U) Negative Normal Negative [facility] Comment on above: Order Comment: Speci men Type: BLOOD SPECIMEN Ordering Facility: [facility] Address: [address] [place] [address] Performed By: #### 1 9123-9, 59838-5 #### [facility] CLIA [id number] [address] [place], [place] [address] [place] Leukocyte esterase Test strip Ql (U) Negative Normal Negative [facility] Comment on above: Order Comment: Speci men Type: BLOOD SPECIMEN Ordering Facility: [facility] Address: [address] [place] [address] Performed By: #### 1 9123-9, 86569-6 #### [facility] CLIA [id number] [address] [place] [address] [place] Nitrite Ql (U) Negative Normal Negative [facility] Comment on above: Order Comment: Speci men Type: BLOOD SPECIMEN Ordering Facility: [facility] Address: [address] [place] [address] Performed By: #### 1 9123-9, #### [facility] CLIA [id number] [address] [place] [address] [place] pH (U) 7.5 [pH] Normal <8.5 [facility] Comment on above: Order Comment: Speci men Type: BLOOD SPECIMEN Ordering Facility: [facility] Address: [address] [place] [address] Performed By: #### 1 9123-9, #### [facility] CLIA [id number] [address] [place] [address] [place] Protein (U) [Mass/Vol] Negative Normal Negative [facility] Comment on above: Order Comment: Speci men Type: BLOOD SPECIMEN Ordering Facility: [facility] Address: [address] [place] [address] Performed By: #### 1 9123-9, #### [facility] CLIA [id number] [address] [place] [address] [place] RBC LM.HPF (Urine sed) [#/Area] 0-2 /HPF Normal 0-2 /HPF [facility] Comment on above: Order Comment: Speci men Type: BLOOD SPECIMEN Ordering Facility: [facility] Address: [address] [place] [address] Performed By: #### 1 9123-9, 42530-2 #### [facility] CLIA [id number] [address] [place] [address] [place] Specific gravity (U) [Rel density] 1.007 Normal 1.005-1.03 0 [facility] Comment on above: Order Comment: Speci men Type: BLOOD SPECIMEN Ordering Facility: [facility] Address: [address] [place] [address] Performed By: #### 1 9123-9, 07788-6 #### [facility] CLIA [id number] [address] [place] [address] [place] Urobilinogen Ql (U) 0.2 EU/dL Normal 0.2-1.0 EU/dL [facility] Comment on above: Order Comment: Speci men Type: BLOOD SPECIMEN Ordering Facility: [facility] Address: [address] [place] [address] Performed By: #### 1 9123-9, 74425-6 #### [facility] CLIA [id number] [address] [place] [address] [place] WBC LM.HPF (Urine sed) [#/Area] 0-5 /HPF Normal 0-5 /HPF [facility] Comment on above: Order Comment: Speci men Type: BLOOD SPECIMEN Ordering Facility: [facility] Address: [address] [place] [address] Performed By: #### 1 9123-9, 36484-7 #### [facility] CLIA [id number] [address] [place] [address] [place] XR ABDOMEN 1V [...] loops of bowel. No focal bony abnormality. Hydrogenation Operator: KIM Transcribe Date/Time: Jul 24 2024 6:40P Dictated by : ANASTASIA WILLSON MD This examination was interpreted and the report reviewed and electronically signed by: ANASTASIA WILLSON MD on Jul 24 2024 6:42PM EST [id number] Normal [facility] 12 Lead EKGon 07-23-2024 12 Lead EKG Normal [facility] Absolute lymphocyte countOrd ered By: Willian Ovalles on 07-23-2024 Lymphocytes Auto (Unsp spec) [#/Vol] 0.52 10*3/uL Low 0.83-4.51 [facility] Absolute neutrophil countOrd ered By: Willian Ovalles on 07-23-2024 Neutrophils (Bld) [#/Vol] 19.1 10*3/uL High 2.0-7.7 [facility] Anion gap in Serum or Plasma Ordered By: Willian Ovalles on 07-23-2024 Anion gap [Moles/Vol] 13 mmol/L 5-15 [facility] Automated lymphocyte count a s percentage of total leukocytesOrdered By: Willian Ovalles on 07-23-2024 Lymphocytes/100 WBC Auto (Unsp spec) 2.5 % Low 19-41 [facility] BUN/creatinine ratioOrdered By: Willian Ovalles on 07-23-2024 Urea nitrogen/Creatinine [Mass ratio] 32.9 mg/mg High 10-20 [facility] Basic Metabolic Profile (BMP )on 07-23-2024 BUN/CRE 32.9 RATIO High - [facility] Comment on above: Performed By: #### L 100.0100, L500.2500 ####[facility] [address] [place], [address] Calcium [Mass/Vol] 9.4 mg/dL Normal 7.6-11.0 [facility] Comment on above: Performed By: #### L 100.0100, L500.2500 ####[facility] [address] [place], [address] Chloride [Moles/Vol] 100 mmol/L Normal 98-108 [facility] Comment on above: Performed By: #### L 100.0100, L500.2500 ####[facility] [address] [place], [address] CO2 [Moles/Vol] 23.1 mmol/L Normal 21.0-32.0 [facility] Comment on above: Performed By: #### L 100.0100, L500.2500 ####[facility] [address] [place], [address] Creatinine [Mass/Vol] 0.93 mg/dL Normal 0.70-1.20 [facility] Comment on above: Performed By: #### L 100.0100, L500.2500 ####[facility] [address] [place], [address] ECRCL 66.66 ml/min Normal 50-250 [facility] Comment on above: Performed By: #### L 100.0100, L500.2500 ####[facility] [address] [place], [address] GAP 13 Normal 5-15 [facility] Comment on above: Performed By: #### L 100.0100, L500.2500 ####[facility] [address] [place], [address] GFR/1.73 sq M.predicted among non-blacks MDRD (S/P/Bld) [Vol rate/Area] 78 mL/min/{1.73_m2} Normal >60 [facility] Comment on above: Result Comment: mL/m in/1.73m2 CKD-EPI Creatinine Equation (2020) Performed By: #### L 100.0100, L500.2500 ####[facility] [address] [place], [address] Glucose [Mass/Vol] 99 mg/dL Normal 70-99 [facility] Comment on above: Performed By: #### L 100.0100, L500.2500 ####[facility] [address] [place], [address] Potassium [Moles/Vol] 4.6 mmol/L Normal 3.3-5.1 [facility] Comment on above: Result Comment: Hemo lysis present, Results??could be affected.?? Performed By: #### L 100.0100, L500.2500 ####[facility] [address] [place], [address] Sodium [Moles/Vol] 136 mmol/L Normal 133-145 [facility] Comment on above: Performed By: #### L 100.0100, L500.2500 ####[facility] [address] [place], [address] Urea nitrogen [Mass/Vol] 30 mg/dL High 4-19 [facility] Comment on above: Performed By: #### L 100.0100, L500.2500 ####[facility] [address] [place], [address] Basophil percentageOrdered B y: Willian Ovalles on 07-23-2024 Basophils/100 WBC (Bld) 0.2 % 0-1 [facility] CBC W/Diff, Automatedon 07-12 Absolute Lymph 0.52 X10 3/uL Low 0.83-4.51 [facility] Comment on above: Performed By: #### L 100.0100, L500.2500 ####[facility] [address] [place], [address] Absolute Neut 19.1 X10 3/uL High 2.0-7.7 [facility] Comment on above: Performed By: #### L 100.0100, L500.2500 ####[facility] [address] [place], [address] Basophils/100 WBC (Bld) 0.2 % Normal 0-1 [facility] Comment on above: Performed By: #### L 100.0100, L500.2500 ####[facility] [address] [place], [address] Eosinophils/100 WBC (Bld) 0.0 % Normal 0-5 [facility] Comment on above: Performed By: #### L 100.0100, L500.2500 ####[facility] [address] [place], [address] Erythrocyte distribution width (RBC) [Ratio] 13.9 % Normal 11.6-14.6 [facility] Comment on above: Performed By: #### L 100.0100, L500.2500 ####[facility] [address] [place], [address] Hematocrit (Bld) [Volume fraction] 45.5 % Normal 37-47 [facility] Comment on above: Performed By: #### L 100.0100, L500.2500 ####[facility] [address] [place], [address] Hemoglobin (Bld) [Mass/Vol] 15.2 g/dL High 12.0-15.0 [facility] Comment on above: Performed By: #### L 100.0100, L500.2500 ####[facility] [address] [place], [address] IG% 1.500 High 0.0-0.9 [facility] Comment on above: Result Comment: IG% - Immature Granulocytes (promyelocytes, myelocytes andmetamyelocytes) > 1% indicates that a LEFT SHIFT is Present. Performed By: #### L 100.0100, L500.2500 ####[facility] [address] [place], [address] Lymphocytes/100 WBC (Bld) 2.5 % Low 19-41 [facility] Comment on above: Performed By: #### L 100.0100, L500.2500 ####[facility] [address] [place], [address] MCH (RBC) [Entitic mass] 32.4 pg High 27.0-32.0 [facility] Comment on above: Performed By: #### L 100.0100, L500.2500 ####[facility] [address] [place], [address] MCHC (RBC) [Mass/Vol] 33.4 g/dL Normal 32-36 [facility] Comment on above: Performed By: #### L 100.0100, L500.2500 ####[facility] [address] [place], [address] MCV (RBC) [Entitic vol] 97.0 fL Normal 81-99 [facility] Comment on above: Performed By: #### L 100.0100, L500.2500 ####[facility] [address] [place], [address] Monocytes/100 WBC (Bld) 2.5 % Normal 0-10 [facility] Comment on above: Performed By: #### L 100.0100, L500.2500 ####[facility] [address] [place], [address] Neutrophils/100 WBC (Bld) 93.3 % High 47-70 [facility] Comment on above: Performed By: #### L 100.0100, L500.2500 ####[facility] [address] [place], [address] Nucleated RBC (Bld) [#/Vol] 0 10*3/uL Normal 0-5 [facility] Comment on above: Performed By: #### L 100.0100, L500.2500 ####[facility] [address] [place], [address] Platelet mean volume (Bld) [Entitic vol] 10.6 fL Normal 6.2-12.0 [facility] Comment on above: Performed By: #### L 100.0100, L500.2500 ####[facility] [address] [place], [address] Platelets (Bld) [#/Vol] 372 10*3/uL Normal 150-450 [facility] Comment on above: Performed By: #### L 100.0100, L500.2500 ####[facility] [address] [place], [address] RBC (Bld) [#/Vol] 4.69 10*6/uL Normal 4.2-5.4 [facility] Comment on above: Performed By: #### L 100.0100, L500.2500 ####[facility] [address] [place], [address] RDW SD 49.4 fl High 35.1-43.9 [facility] Comment on above: Performed By: #### L 100.0100, L500.2500 ####[facility] [address] [place], [address] WBC (Bld) [#/Vol] 20.5 10*3/uL High 4.4-11.0 [facility] Comment on above: Performed By: #### L 100.0100, L500.2500 ####[facility] [address] [place], [address] Carbon dioxide, total [Moles /volume] in Central venous bloodOrdered By: Willian Ovalles on 07-23-2024 CO2 [Moles/Vol] 23.1 mmol/L 21.0-32.0 [facility] Chloride assayOrdered By: Andrew Ovalles on 07-23-2024 Chloride [Moles/Vol] 100 mmol/L 98-108 [facility] Eosinophil percentageOrdered By: Willian Ovalles on 07-23-2024 Eosinophils/100 WBC (Bld) 0.0 % 0-5 [facility] Erythrocyte distribution wid th ratioOrdered By: Willian Ovalles on 07-23-2024 Erythrocyte distribution width (RBC) [Ratio] 13.9 % 11.6-14.6 [facility] Erythrocyte distribution wid th standard deviationOrdered By: Willian Ovalles on 07-23-2024 Erythrocyte distribution width (RBC) [Ratio] 49.4 fl High 35.1-43.9 [facility] Glomerular filtration rate ( GFR) estimation/1.73 sq m using serum, plasma, or whole bOrdered By: Willina Ovalles on 07-23-2024 GFR/1.73 sq M.predicted among non-blacks MDRD (S/P/Bld) [Vol rate/Area] 78 mL/min/{1.73_m2} >60 [facility] Comment on above: mL/min/1.73m2 CKD-EP I Creatinine Equation (2020) Hematocrit Auto (Bld) [Volum e fraction]Ordered By: Willian Ovalles on 07-23-2024 Hematocrit (Bld) [Volume fraction] 45.5 % 37-47 [facility] Hemoglobin measurementOrdere d By: Willian Ovalles on 07-23-2024 Hemoglobin (Bld) [Mass/Vol] 15.2 g/dL High 12.0-15.0 [facility] Immature granulocytes/100 WB C Auto (Bld)Ordered By: Willian Ovalles on 07-23-2024 Immature granulocytes/100 WBC (Bld) 1.500 % High 0.0-0.9 [facility] Comment on above: IG% - Immature Granu locytes (promyelocytes, myelocytes and metamyelocytes) > 1% indicates that a LEFT SHIFT is Present. MCV (mean corpuscular volume ) determinationOrdered By: Willian Ovalles on 07-23-2024 MCV (RBC) [Entitic vol] 97.0 fL 81-99 [facility] Mean corpuscular hemoglobin (MCH) determinationOrdered By: Willian Ovalles on 07-23-2024 MCH (RBC) [Entitic mass] 32.4 pg High 27.0-32.0 [facility] Mean corpuscular hemoglobin concentration (MCHC) determinationOrdered By: Willian Ovalles on 07-23-2024 MCHC (RBC) [Mass/Vol] 33.4 g/dL 32-36 [facility] Mean platelet volume determi nationOrdered By: Willian Ovalles on 07-23-2024 Platelet mean volume (Bld) [Entitic vol] 10.6 fL 6.2-12.0 [facility] Monocyte percentageOrdered B y: Willian Ovalles on 07-23-2024 Monocytes/100 WBC (Bld) 2.5 % 0-10 [facility] Neutrophil percentageOrdered By: Willian Ovalles on 07-23-2024 Neutrophils/100 WBC (Bld) 93.3 % High 47-70 [facility] Nucleated red blood cell per centageOrdered By: Willian Ovalles on 07-23-2024 Nucleated RBC/100 WBC (Bld) [Ratio] 0 % 0-5 [facility] Platelet countOrdered By: Andrew Ovalles on 07-23-2024 Platelets (Bld) [#/Vol] 372 10*3/uL 150-450 [facility] Potassium measurement (mass/ volume)Ordered By: Willian Ovalles on 07-23-2024 Potassium (Unsp spec) [Mass/Vol] 4.6 mmol/L 3.3-5.1 [facility] Comment on above: Hemolysis present, R esults could be affected. RBC Auto (Bld) [#/Vol]Ordere d By: Willian Ovalles on 07-23-2024 RBC (Bld) [#/Vol] 4.69 10*6/uL 4.2-5.4 [facility] Serum creatinine measurement (mass/volume)Ordered By: Willian Ovalles on 07-23-2024 Creatinine [Mass/Vol] 0.93 mg/dL 0.70-1.20 [facility] Serum glucose measurement (m ass/volume)Ordered By: Willian Ovalles on 07-23-2024 Glucose [Mass/Vol] 99 mg/dL 70-99 [facility] Serum or plasma calcium leslie urement (mass/volume)Ordered By: Willian Ovalles on 07-23-2024 Calcium [Mass/Vol] 9.4 mg/dL 7.6-11.0 [facility] Serum or plasma urea nitroge n measurement (mass/volume)Ordered By: Willian Ovalles on 07-23-2024 Urea nitrogen [Mass/Vol] 30 mg/dL High 4-19 [facility] Sodium levelOrdered By: Willian Ovalles on 07-23-2024 Sodium [Moles/Vol] 136 mmol/L 133-145 [facility] Venous duplex ultrasound rep ortOrdered By: Willian Colón on 07-23-2024 [facility] [address] [place] [address] Venous Duplex US - Wan Extrem 07/23/24 0803 MR#: [id number] Acct: [id number] Name: MICHELLE MITCHELL Rep #:[id number] : 1980 43 From: Willian Arcniiega Attending Dr: Dr. Willian Ovalles, Status: ADM [...] and/or faxed to Dr Bishop / PCU zoning engineer Jody. VL/Venous Duplex US - Wan Extrem [...] Dex Wilkinson MD ~ Date Dictated: 07/23/24 0803 Date Transcribed: 07/23/24 115 Hydrogenation Operator: Signed [facility] Work Phone: White blood cell (WBC) count Ordered By: Willian Ovalles on 07-23-2024 WBC (Bld) [#/Vol] 20.5 10*3/uL High 4.4-11.0 [facility] Basic Metabolic Profile (BMP )on 07-22-2024 BUN/CRE 27.6 RATIO High 10-20 [facility] Comment on above: Performed By: #### L 100.0100, L500.2500 ####[facility] [address] [place], [place], [address] Calcium [Mass/Vol] 9.1 mg/dL Normal 7.6-11.0 [facility] Comment on above: Performed By: #### L 100.0100, L500.2500 ####[facility] [address] [place], [address] Chloride [Moles/Vol] 100 mmol/L Normal 98-108 [facility] Comment on above: Performed By: #### L 100.0100, L500.2500 ####[facility] [address] [place], [address] CO2 [Moles/Vol] 20.0 mmol/L Low 21.0-32.0 [facility] Comment on above: Performed By: #### L 100.0100, L500.2500 ####[facility] [address] [place], [address] Creatinine [Mass/Vol] 1.05 mg/dL Normal 0.70-1.20 [facility] Comment on above: Performed By: #### L 100.0100, L500.2500 ####[facility] [address] [place], [address] ECRCL 59.04 ml/min Normal 50-250 [facility] Comment on above: Performed By: #### L 100.0100, L500.2500 ####[facility] [address] [place], [address] GAP 15 Normal 5-15 [facility] Comment on above: Performed By: #### L 100.0100, L500.2500 ####[facility] [address] [place], [address] GFR/1.73 sq M.predicted among non-blacks MDRD (S/P/Bld) [Vol rate/Area] 67 mL/min/{1.73_m2} Normal >60 [facility] Comment on above: Result Comment: mL/m in/1.73m2 CKD-EPI Creatinine Equation (2020) Performed By: #### L 100.0100, L500.2500 ####[facility] [address] [place], [address] Glucose [Mass/Vol] 112 mg/dL High 70-99 [facility] Comment on above: Performed By: #### L 100.0100, L500.2500 ####[facility] [address] [place], [address] Potassium [Moles/Vol] 4.0 mmol/L Normal 3.3-5.1 [facility] Comment on above: Performed By: #### L 100.0100, L500.2500 ####[facility] [address] [place], [address] Sodium [Moles/Vol] 135 mmol/L Normal 133-145 [facility] Comment on above: Performed By: #### L 100.0100, L500.2500 ####[facility] [address] [place], [address] Urea nitrogen [Mass/Vol] 29 mg/dL High 4-19 [facility] Comment on above: Performed By: #### L 100.0100, L500.2500 ####[facility] [address] [place], [address] Blood cultureOrdered By: Amber Ovalles on 07-22-2024 Bacteria identified Cx Nom (Bld) No growth in 5 days. [facility] Bacteria identified Cx Nom (Bld) No growth in 5 days. [facility] CBC W/Diff, Automatedon 07-12 Absolute Lymph 0.95 X10 3/uL Normal 0.83-4.51 [facility] Comment on above: Performed By: #### L 100.0100, L500.2500 ####[facility] [address] [place], [address] Absolute Neut 13.0 X10 3/uL High 2.0-7.7 [facility] Comment on above: Performed By: #### L 100.0100, L500.2500 ####[facility] [address] [place], [address] Basophils/100 WBC (Bld) 0.3 % Normal 0-1 [facility] Comment on above: Performed By: #### L 100.0100, L500.2500 ####[facility] [address] [place], [address] Eosinophils/100 WBC (Bld) 0.2 % Normal 0-5 [facility] Comment on above: Performed By: #### L 100.0100, L500.2500 ####[facility] [address] [place], [address] Erythrocyte distribution width (RBC) [Ratio] 14.1 % Normal 11.6-14.6 [facility] Comment on above: Performed By: #### L 100.0100, L500.2500 ####[facility] [address] [place], [address] Hematocrit (Bld) [Volume fraction] 39.1 % Normal 37-47 [facility] Comment on above: Performed By: #### L 100.0100, L500.2500 ####[facility] [address] [place], [address] Hemoglobin (Bld) [Mass/Vol] 12.7 g/dL Normal 12.0-15.0 [facility] Comment on above: Performed By: #### L 100.0100, L500.2500 ####[facility] [address] [place], [address] IG% 1.200 High 0.0-0.9 [facility] Comment on above: Result Comment: IG% - Immature Granulocytes (promyelocytes, myelocytes andmetamyelocytes) > 1% indicates that a LEFT SHIFT is Present. Performed By: #### L 100.0100, L500.2500 ####[facility] [address] [place], [address] Lymphocytes/100 WBC (Bld) 6.4 % Low 19-41 [facility] Comment on above: Performed By: #### L 100.0100, L500.2500 ####[facility] [address] [place], [address] MCH (RBC) [Entitic mass] 32.1 pg High 27.0-32.0 [facility] Comment on above: Performed By: #### L 100.0100, L500.2500 ####[facility] [address] [place], [address] MCHC (RBC) [Mass/Vol] 32.5 g/dL Normal 32-36 [facility] Comment on above: Performed By: #### L 100.0100, L500.2500 ####[facility] [address] [place], [address] MCV (RBC) [Entitic vol] 98.7 fL Normal 81-99 [facility] Comment on above: Performed By: #### L 100.0100, L500.2500 ####[facility] [address] [place], [address] Monocytes/100 WBC (Bld) 4.8 % Normal 0-10 [facility] Comment on above: Performed By: #### L 100.0100, L500.2500 ####[facility] [address] [place], [address] Neutrophils/100 WBC (Bld) 87.1 % High 47-70 [facility] Comment on above: Performed By: #### L 100.0100, L500.2500 ####[facility] [address] [place], [address] Nucleated RBC (Bld) [#/Vol] 0 10*3/uL Normal 0-5 [facility] Comment on above: Performed By: #### L 100.0100, L500.2500 ####[facility] [address] [place], [address] Platelet mean volume (Bld) [Entitic vol] 11.1 fL Normal 6.2-12.0 [facility] Comment on above: Performed By: #### L 100.0100, L500.2500 ####[facility] [address] [place], [address] Platelets (Bld) [#/Vol] 280 10*3/uL Normal 150-450 [facility] Comment on above: Performed By: #### L 100.0100, L500.2500 ####[facility] [address] [place], [address] RBC (Bld) [#/Vol] 3.96 10*6/uL Low 4.2-5.4 [facility] Comment on above: Performed By: #### L 100.0100, L500.2500 ####[facility] [address] [place], [address] RDW SD 51.6 fl High 35.1-43.9 [facility] Comment on above: Performed By: #### L 100.0100, L500.2500 ####[facility] [address] [place], [address] WBC (Bld) [#/Vol] 14.9 10*3/uL High 4.4-11.0 [facility] Comment on above: Performed By: #### L 100.0100, L500.2500 ####[facility] [address] [place], [address] Bilirubin, totalOrdered By: Sergio Whalen on 07-21-2024 Bilirubin [Mass/Vol] 0.59 mg/dL 0.00-1.30 [facility] CBC W/Diff, Automatedon 07-12 Absolute Lymph 0.59 X10 3/uL Low 0.83-4.51 [facility] Comment on above: Performed By: #### L 500.4050, L100.0100, L500.4100, L501.2300 ####[facility] [address] [place], [address] Absolute Neut 15.8 X10 3/uL High 2.0-7.7 [facility] Comment on above: Performed By: #### L 500.4050, L100.0100, L500.4100, L501.2300 ####[facility] [address] [place], [address] Basophils/100 WBC (Bld) 0.2 % Normal 0-1 [facility] Comment on above: Performed By: #### L 500.4050, L100.0100, L500.4100, L501.2300 ####[facility] [address] [place], [address] Eosinophils/100 WBC (Bld) 0.1 % Normal 0-5 [facility] Comment on above: Performed By: #### L 500.4050, L100.0100, L500.4100, L501.2300 ####[facility] [address] [place], [address] Erythrocyte distribution width (RBC) [Ratio] 14.2 % Normal 11.6-14.6 [facility] Comment on above: Performed By: #### L 500.4050, L100.0100, L500.4100, L501.2300 ####[facility] [address] [place], [address] Hematocrit (Bld) [Volume fraction] 41.0 % Normal 37-47 [facility] Comment on above: Performed By: #### L 500.4050, L100.0100, L500.4100, L501.2300 ####[facility] [address] [place], [address] Hemoglobin (Bld) [Mass/Vol] 13.6 g/dL Normal 12.0-15.0 [facility] Comment on above: Performed By: #### L 500.4050, L100.0100, L500.4100, L501.2300 ####[facility] [address] [place], [address] IG% 1.000 High 0.0-0.9 [facility] Comment on above: Result Comment: IG% - Immature Granulocytes (promyelocytes, myelocytes andmetamyelocytes) > 1% indicates that a LEFT SHIFT is Present. Performed By: #### L 500.4050, L100.0100, L500.4100, L501.2300 ####[facility] [address] [place], [address] Lymphocytes/100 WBC (Bld) 3.5 % Low 19-41 [facility] Comment on above: Performed By: #### L 500.4050, L100.0100, L500.4100, L501.2300 ####[facility] [address] [place], [address] MCH (RBC) [Entitic mass] 32.3 pg High 27.0-32.0 [facility] Comment on above: Performed By: #### L 500.4050, L100.0100, L500.4100, L501.2300 ####[facility] [address] [place], [address] MCHC (RBC) [Mass/Vol] 33.2 g/dL Normal 32-36 [facility] Comment on above: Performed By: #### L 500.4050, L100.0100, L500.4100, L501.2300 ####[facility] [address] [place], [address] MCV (RBC) [Entitic vol] 97.4 fL Normal 81-99 [facility] Comment on above: Performed By: #### L 500.4050, L100.0100, L500.4100, L501.2300 ####[facility] [address] [place], [address] Monocytes/100 WBC (Bld) 2.6 % Normal 0-10 [facility] Comment on above: Performed By: #### L 500.4050, L100.0100, L500.4100, L501.2300 ####[facility] [address] [place], [address] Neutrophils/100 WBC (Bld) 92.6 % High 47-70 [facility] Comment on above: Performed By: #### L 500.4050, L100.0100, L500.4100, L501.2300 ####[facility] [address] [place], [address] Nucleated RBC (Bld) [#/Vol] 0 10*3/uL Normal 0-5 [facility] Comment on above: Performed By: #### L 500.4050, L100.0100, L500.4100, L501.2300 ####[facility] [address] [place], [address] Platelet mean volume (Bld) [Entitic vol] 10.3 fL Normal 6.2-12.0 [facility] Comment on above: Performed By: #### L 500.4050, L100.0100, L500.4100, L501.2300 ####[facility] [address] [place], [address] Platelets (Bld) [#/Vol] 307 10*3/uL Normal 150-450 [facility] Comment on above: Performed By: #### L 500.4050, L100.0100, L500.4100, L501.2300 ####[facility] [address] [place], [address] RBC (Bld) [#/Vol] 4.21 10*6/uL Normal 4.2-5.4 [facility] Comment on above: Performed By: #### L 500.4050, L100.0100, L500.4100, L501.2300 ####[facility] [address] [place], [address] RDW SD 51.1 fl High 35.1-43.9 [facility] Comment on above: Performed By: #### L 500.4050, L100.0100, L500.4100, L501.2300 ####[facility] [address] [place], [address] WBC (Bld) [#/Vol] 17.0 10*3/uL High 4.4-11.0 [facility] Comment on above: Performed By: #### L 500.4050, L100.0100, L500.4100, L501.2300 ####[facility] [address] [place], [address] Calculated very low density lipoprotein (VLDL) cholesterol measurementOrdered By: Sergio Whalen on 07-21-2024 Calculated very low density lipoprotein (VLDL) cholesterol measurement 45 mg/dL High 5-40 [facility] Comprehensive Metabolic Prof ilon 07-21-2024 Albumin [Mass/Vol] 4.4 g/dL Normal 3.5-5.0 [facility] Comment on above: Performed By: #### L 500.4050, L100.0100, L500.4100, L501.2300 ####[facility] [address] [place], [address] Albumin/Globulin [Mass ratio] 1.6 {ratio} Normal 0.9-2.4 [facility] Comment on above: Performed By: #### L 500.4050, L100.0100, L500.4100, L501.2300 ####[facility] [address] [place], [address] ALK PHOS 118 U/L High 35-104 [facility] Comment on above: Performed By: #### L 500.4050, L100.0100, L500.4100, L501.2300 ####[facility] [address] [place], [address] ALT [Catalytic activity/Vol] 35 U/L Normal <=34 [facility] Comment on above: Performed By: #### L 500.4050, L100.0100, L500.4100, L501.2300 ####[facility] [address] [place], [address] AST [Catalytic activity/Vol] 29 U/L Normal <=31 [facility] Comment on above: Performed By: #### L 500.4050, L100.0100, L500.4100, L501.2300 ####[facility] [address] [place], [address] Bilirubin [Mass/Vol] 0.59 mg/dL Normal 0.00-1.30 [facility] Comment on above: Performed By: #### L 500.4050, L100.0100, L500.4100, L501.2300 ####[facility] [address] [place], [address] BUN/CRE 23.1 RATIO High 10-20 [facility] Comment on above: Performed By: #### L 500.4050, L100.0100, L500.4100, L501.2300 ####[facility] [address] [place], [address] Calcium [Mass/Vol] 9.3 mg/dL Normal 7.6-11.0 [facility] Comment on above: Performed By: #### L 500.4050, L100.0100, L500.4100, L501.2300 ####[facility] [address] [place], [address] Chloride [Moles/Vol] 102 mmol/L Normal 98-108 [facility] Comment on above: Performed By: #### L 500.4050, L100.0100, L500.4100, L501.2300 ####[facility] [address] [place], [address] CO2 [Moles/Vol] 19.4 mmol/L Low 21.0-32.0 [facility] Comment on above: Performed By: #### L 500.4050, L100.0100, L500.4100, L501.2300 ####[facility] [address] [place], [address] Creatinine [Mass/Vol] 0.99 mg/dL Normal 0.70-1.20 [facility] Comment on above: Performed By: #### L 500.4050, L100.0100, L500.4100, L501.2300 ####[facility] [address] [place], [address] ECRCL 62.62 ml/min Normal 50-250 [facility] Comment on above: Performed By: #### L 500.4050, L100.0100, L500.4100, L501.2300 ####[facility] [address] [place], [address] GAP 14 Normal 5-15 [facility] Comment on above: Performed By: #### L 500.4050, L100.0100, L500.4100, L501.2300 ####[facility] [address] [place], [address] GFR/1.73 sq M.predicted among non-blacks MDRD (S/P/Bld) [Vol rate/Area] 72 mL/min/{1.73_m2} Normal >60 [facility] Comment on above: Result Comment: mL/m in/1.73m2 CKD-EPI Creatinine Equation (2020) Performed By: #### L 500.4050, L100.0100, L500.4100, L501.2300 ####[facility] [address] [place], [address] Globulin (S) [Mass/Vol] 2.6 g/dL Normal 2.2-4.2 [facility] Comment on above: Performed By: #### L 500.4050, L100.0100, L500.4100, L501.2300 ####[facility] [address] [place], [address] Glucose [Mass/Vol] 131 mg/dL High 70-99 [facility] Comment on above: Performed By: #### L 500.4050, L100.0100, L500.4100, L501.2300 ####[facility] [address] [place], [address] Potassium [Moles/Vol] 4.8 mmol/L Normal 3.3-5.1 [facility] Comment on above: Performed By: #### L 500.4050, L100.0100, L500.4100, L501.2300 ####[facility] [address] [place], [address] Sodium [Moles/Vol] 135 mmol/L Normal 133-145 [facility] Comment on above: Performed By: #### L 500.4050, L100.0100, L500.4100, L501.2300 ####[facility] [address] [place], [address] T PROT 7.0 g/dL Normal 5.9-8.4 [facility] Comment on above: Performed By: #### L 500.4050, L100.0100, L500.4100, L501.2300 ####[facility] [address] [place], [address] Urea nitrogen [Mass/Vol] 23 mg/dL High 4-19 [facility] Comment on above: Performed By: #### L 500.4050, L100.0100, L500.4100, L501.2300 ####[facility] [address] [place], [address] Consultation - Cardiologyon 07-21-2024 Consultation - Cardiology Normal [facility] Echo Completeon 07-21-2024 Echo Complete Normal [facility] Echocardiogram study reportO rdered By: Saman Clay on 07-21-2024 Study report [facility] [address] [place] [address] Echo Complete 07/21/24 1046 MR#: [id number] Acct: [id number] Name: MICHELLE MITCHELL Rep #:[id number] 1 : 1980 43 From: Saman Clay MD Attending Dr: Dr. Willian Ovalles DO Status: [...] Physician: Dex Wilkinson Performed By: Maru Kothari FAY 07/21/241335 Date _ Saman Clay MD CC: Dr. Sergio Umaña DO; Dr. Willian Ovalles DO; Dr. Dex Wilkinson MD ~ Date Dictated: 07/21/246 Date Transcribed: 07/21/241335 Hydrogenation Operator: Signed [facility] Work Phone: Hemoglobin A1con 05-10-2025 HbA1c (Bld) [Mass fraction] 5.6 % Normal <=5.6 [facility] Comment on above: Result Comment: Norm al < 5.7 % Prediabetic 5.7 - 6.4 % Diabetic >or= 6.5 % Please note range changes. Performed By: #### L 501.9520, L501.9985 ####[facility] [address] [place], [address] L499.0043on 07-21-2024 Trop T High Sen 37 ng/L High <=14 [facility] Comment on above: Performed By: #### L 499.0043 ####[facility] [address] [place], [address] LDL calc ser/plasOrdered By: Sergio Whalen on 07-21-2024 Cholesterol in LDL [Mass/Vol] 92 mg/dL [facility] Comment on above: Bvxoxrjnxh=855-781 m g/dL & Higher Yohd=376 mg/dL or greater Laboratory - Chemistry and C hemistry - challengeOrdered By: Sergio Whalen on 07-21-2024 AST [Catalytic activity/Vol] 29 U/L <32 [facility] Lipid Profileon 07-21-2024 CHOL:HDL 4.43 Normal [facility] Comment on above: Performed By: #### L 500.4050, L100.0100, L500.4100, L501.2300 ####[facility] [address] [place], [address] Cholesterol [Mass/Vol] 177 mg/dL Normal <=200 [facility] Comment on above: Result Comment: Chol esterol level, Desirable <200 mg/dLBorderline high cholesterol 200-239 mg/dLHigh cholesterol >=240 mg/dLRecommendations of the NCEP Adult Treatment Panel for thefollowing risk-cutoff thresholds for the [place] American[place]. Performed By: #### L 500.4050, L100.0100, L500.4100, L501.2300 ####[facility] [address] [place], [address] Cholesterol in HDL [Mass/Vol] 40 mg/dL Normal [facility] Comment on above: Result Comment: Sophie onal Cholesterol Education Program (NCEP) guidelines:<40 mg/dL: Low HDL-cholesterol (major risk factor for CHD)>= 60 mg/dL: High HDL-cholesterol (negative risk factor forCHD)HDL-cholesterol is affected by a number of factors, e.g.smoking, exercise, hormones, sex and age. Performed By: #### L 500.4050, L100.0100, L500.4100, L501.2300 ####[facility] [address] [place], [address] Cholesterol in LDL [Mass/Vol] 92 mg/dL Normal [facility] Comment on above: Result Comment: Bord tfdizr=012-181 mg/dL Higher Bfdj=171 mg/dL or greater Performed By: #### L 500.4050, L100.0100, L500.4100, L501.2300 ####[facility] [address] [place], [address] Cholesterol in VLDL [Mass/Vol] 45 mg/dL High 5-40 [facility] Comment on above: Performed By: #### L 500.4050, L100.0100, L500.4100, L501.2300 ####[facility] [address] [place], [address] Triglyceride [Mass/Vol] 224 mg/dL High [facility] Comment on above: Result Comment: The drugs N-Acetylcysteine and Metamizole may falselydepress this assay.Normal range: <150 mg/dLBorderline High: 150-199 mg/dLHigh: 200-499 mg/dLVery High: >500 mg/dL Performed By: #### L 500.4050, L100.0100, L500.4100, L501.2300 ####[facility] [address] [place], [address] Magnesiumon 07-21-2024 Magnesium [Mass/Vol] 1.9 mg/dL Normal 1.5-2.2 [facility] Comment on above: Performed By: #### L 501.5200 ####[facility] [address] [facility] [address] [place], [place], [address] No Panel InformationOrdered By: Sergio Whalen on 07-21-2024 29 U/L <32 [facility] Phosphoruson 07-21-2024 Phosphate [Mass/Vol] 3.7 mg/dL Normal 2.7-4.5 [facility] Comment on above: Performed By: #### L 500.4050, L100.0100, L500.4100, L501.2300 ####[facility] [address] [place], [place], [address] Screening total cholesterol/ high density lipoprotein (HDL) cholesterol ratioOrdered By: Sergio Whalen on 07-21-2024 Cholesterol.total/Choles terol in HDL [Mass ratio] 4.43 {ratio} [facility] Serum globulin measurementOr dered By: Sergio Whalen on 07-21-2024 Globulin (S) [Mass/Vol] 2.6 g/dL 2.2-4.2 [facility] Serum or plasma alanine hair otransferase (ALT) measurementOrdered By: Sergio Whalen on 07-21-2024 ALT [Catalytic activity/Vol] 35 U/L <35 [facility] Serum or plasma albumin leslie urement (mass/volume)Ordered By: Sergio Whalen on 07-21-2024 Albumin [Mass/Vol] 4.4 g/dL 3.5-5.0 [facility] Serum or plasma albumin/glob ulin mass ratioOrdered By: Sergio Whalen on 07-21-2024 Albumin/Globulin [Mass ratio] 1.6 {ratio} 0.9-2.4 [facility] Serum or plasma alkaline delfin sphatase measurementOrdered By: Sergio Whalen on 07-21-2024 ALP [Catalytic activity/Vol] 118 U/L High 35-104 [facility] Serum or plasma cholesterol in HDL measurement (mass/volume)Ordered By: Sergio Whalen on 07-21-2024 Cholesterol in HDL [Mass/Vol] 40 mg/dL >40 [facility] Comment on above: National Cholesterol Education Program (NCEP) guidelines:<40 mg/dL: Low HDL-cholesterol (major risk factor for CHD)>= 60 mg/dL: High HDL-cholesterol (negative risk factor for CHD)HDL-cholesterol is affected by a number of factors, e.g. smoking, exercise, hormones, sex and age. Serum or plasma cholesterol measurement (mass/volume)Ordered By: Sergio Whalen on 07-21-2024 Cholesterol [Mass/Vol] 177 mg/dL <201 [facility] Comment on above: Cholesterol level, D esirable <200 mg/dLBorderline high cholesterol 200-239 mg/dLHigh cholesterol >=240 mg/dLRecommendations of the NCEP Adult Treatment Panel for the following risk-cutoff thresholds for the [place] Martin[place] population. Thyroid Stim Hormone (TSH)on 07-21-2024 TSH 1.400 uIU/mL Normal 0.300-4.20 0 [facility] Comment on above: Order Comment: ADD O N Performed By: #### L 501.9520, L501.9985 ####[facility] [address] [place], [address] Total proteinOrdered By: Luois Whalen on 07-21-2024 Protein [Mass/Vol] 7.0 g/dL 5.9-8.4 [facility] Triglycerides measurementOrd ered By: Sergio Whalen on 07-21-2024 Triglyceride [Mass/Vol] 224 mg/dL High <199 [facility] Comment on above: The drugs N-Acetylcy steine and Metamizole may falsely depress this assay. Normal range: <150 mg/dLBorderline High: 150-199 mg/dLHigh: 200-499 mg/dLVery High: >500 mg/dL Venous Duplex US - Wan Extre mon 07-21-2024 Venous Duplex US - Wan Extrem Normal [facility] Abdomen/Pelvis W IV Cont ONL Yon 07-20-2024 Abdomen/Pelvis W IV Cont ONLY Normal [facility] Absolute lymphocyte countOrd ered By: Carlos Nair on 07-20-2024 Lymphocytes Auto (Unsp spec) [#/Vol] 0.38 10*3/uL Low 0.83-4.51 [facility] Absolute neutrophil countOrd ered By: Carlos Nair on 07-20-2024 Neutrophils (Bld) [#/Vol] 13.6 10*3/uL High 2.0-7.7 [facility] Anion gap in Serum or Plasma Ordered By: Carlos Nair on 07-20-2024 Anion gap [Moles/Vol] 13 mmol/L 5-15 [facility] Automated lymphocyte count a s percentage of total leukocytesOrdered By: Carlos Nair on 07-20-2024 Lymphocytes/100 WBC Auto (Unsp spec) 2.7 % Low 19-41 [facility] BUN/creatinine ratioOrdered By: Carlos Nair on 07-20-2024 Urea nitrogen/Creatinine [Mass ratio] 21.8 mg/mg High 10-20 [facility] Basophil percentageOrdered B y: Carlos Nair on 07-20-2024 Basophils/100 WBC (Bld) 0.1 % 0-1 [facility] Bilirubin Test strip Ql (U)O rdered By: Carlos Nair on 07-20-2024 Bilirubin Ql (U) Negative Negative [facility] Bilirubin directOrdered By: Carlos Nair on 07-20-2024 Bilirubin.direct [Mass/Vol] 0.29 mg/dL 0.00-0.30 [facility] Bilirubin, totalOrdered By: Carlos Nair on 07-20-2024 Bilirubin [Mass/Vol] 0.61 mg/dL 0.00-1.30 [facility] CBC W/Diff, Automatedon Absolute Lymph 0.38 X10 3/uL Low 0.83-4.51 [facility] Comment on above: Performed By: #### L 300.8000, L100.0100, L501.2450, L500.4050, L500.3400, L503.7505 ####[facility] [address] [place], [place], [address] Absolute Neut 13.6 X10 3/uL High 2.0-7.7 [facility] Comment on above: Performed By: #### L 300.8000, L100.0100, L501.2450, L500.4050, L500.3400, L503.7505 ####[facility] [address] [place], [address] Basophils/100 WBC (Bld) 0.1 % Normal 0-1 [facility] Comment on above: Performed By: #### L 300.8000, L100.0100, L501.2450, L500.4050, L500.3400, L503.7505 ####[facility] [address] [place], [address] Eosinophils/100 WBC (Bld) 0.0 % Normal 0-5 [facility] Comment on above: Performed By: #### L 300.8000, L100.0100, L501.2450, L500.4050, L500.3400, L503.7505 ####[facility] [address] [place], [address] Erythrocyte distribution width (RBC) [Ratio] 14.1 % Normal 11.6-14.6 [facility] Comment on above: Performed By: #### L 300.8000, L100.0100, L501.2450, L500.4050, L500.3400, L503.7505 ####[facility] [address] [place], [address] Hematocrit (Bld) [Volume fraction] 40.2 % Normal 37-47 [facility] Comment on above: Performed By: #### L 300.8000, L100.0100, L501.2450, L500.4050, L500.3400, L503.7505 ####[facility] [address] [place], [address] Hemoglobin (Bld) [Mass/Vol] 13.2 g/dL Normal 12.0-15.0 [facility] Comment on above: Performed By: #### L 300.8000, L100.0100, L501.2450, L500.4050, L500.3400, L503.7505 ####[facility] [address] [place], [address] IG% 1.000 High 0.0-0.9 [facility] Comment on above: Result Comment: IG% - Immature Granulocytes (promyelocytes, myelocytes andmetamyelocytes) > 1% indicates that a LEFT SHIFT is Present. Performed By: #### L 300.8000, L100.0100, L501.2450, L500.4050, L500.3400, L503.7505 ####[facility] [address] [place], [address] Lymphocytes/100 WBC (Bld) 2.7 % Low 19-41 [facility] Comment on above: Performed By: #### L 300.8000, L100.0100, L501.2450, L500.4050, L500.3400, L503.7505 ####[facility] [address] [place], [address] MCH (RBC) [Entitic mass] 32.1 pg High 27.0-32.0 [facility] Comment on above: Performed By: #### L 300.8000, L100.0100, L501.2450, L500.4050, L500.3400, L503.7505 ####[facility] [address] [place], [address] MCHC (RBC) [Mass/Vol] 32.8 g/dL Normal 32-36 [facility] Comment on above: Performed By: #### L 300.8000, L100.0100, L501.2450, L500.4050, L500.3400, L503.7505 ####[facility] [address] [place], [address] MCV (RBC) [Entitic vol] 97.8 fL Normal 81-99 [facility] Comment on above: Performed By: #### L 300.8000, L100.0100, L501.2450, L500.4050, L500.3400, L503.7505 ####[facility] [address] [place], [address] Monocytes/100 WBC (Bld) 1.5 % Normal 0-10 [facility] Comment on above: Performed By: #### L 300.8000, L100.0100, L501.2450, L500.4050, L500.3400, L503.7505 ####[facility] [address] [place], [address] Neutrophils/100 WBC (Bld) 94.7 % High 47-70 [facility] Comment on above: Performed By: #### L 300.8000, L100.0100, L501.2450, L500.4050, L500.3400, L503.7505 ####[facility] [address] [place], [address] Nucleated RBC (Bld) [#/Vol] 0 10*3/uL Normal 0-5 [facility] Comment on above: Performed By: #### L 300.8000, L100.0100, L501.2450, L500.4050, L500.3400, L503.7505 ####[facility] [address] [place], [address] Platelet mean volume (Bld) [Entitic vol] 10.3 fL Normal 6.2-12.0 [facility] Comment on above: Performed By: #### L 300.8000, L100.0100, L501.2450, L500.4050, L500.3400, L503.7505 ####[facility] [address] [place], [address] Platelets (Bld) [#/Vol] 303 10*3/uL Normal 150-450 [facility] Comment on above: Performed By: #### L 300.8000, L100.0100, L501.2450, L500.4050, L500.3400, L503.7505 ####[facility] [address] [place], [address] RBC (Bld) [#/Vol] 4.11 10*6/uL Low 4.2-5.4 [facility] Comment on above: Performed By: #### L 300.8000, L100.0100, L501.2450, L500.4050, L500.3400, L503.7505 ####[facility] [address] [place], [address] RDW SD 51.0 fl High 35.1-43.9 [facility] Comment on above: Performed By: #### L 300.8000, L100.0100, L501.2450, L500.4050, L500.3400, L503.7505 ####[facility] [address] [place], [address] WBC (Bld) [#/Vol] 14.3 10*3/uL High 4.4-11.0 [facility] Comment on above: Performed By: #### L 300.8000, L100.0100, L501.2450, L500.4050, L500.3400, L503.7505 ####[facility] [address] [place], [address] CTA Chest W/WO Contraston CTA Chest W/WO Contrast Normal [facility] Carbon dioxide, total [Moles /volume] in Central venous bloodOrdered By: Carlso Nair on 07-20-2024 CO2 [Moles/Vol] 19.0 mmol/L Low 21.0-32.0 [facility] Chest 1 View (Portable)on Chest 1 View (Portable) Normal [facility] Chloride assayOrdered By: Brandy portia Nair on 07-20-2024 Chloride [Moles/Vol] 104 mmol/L 98-108 [facility] Comprehensive Metabolic Prof ilon 07-20-2024 Albumin/Globulin [Mass ratio] 1.7 {ratio} Normal 0.9-2.4 [facility] Comment on above: Performed By: #### L 300.8000, L100.0100, L501.2450, L500.4050, L500.3400, L503.7505 ####[facility] [address] [place], [address] BUN/CRE 21.8 RATIO High 10-20 [facility] Comment on above: Performed By: #### L 300.8000, L100.0100, L501.2450, L500.4050, L500.3400, L503.7505 ####[facility] [address] [place], [address] Calcium [Mass/Vol] 9.3 mg/dL Normal 7.6-11.0 [facility] Comment on above: Performed By: #### L 300.8000, L100.0100, L501.2450, L500.4050, L500.3400, L503.7505 ####[facility] [address] [place], [address] Chloride [Moles/Vol] 104 mmol/L Normal 98-108 [facility] Comment on above: Performed By: #### L 300.8000, L100.0100, L501.2450, L500.4050, L500.3400, L503.7505 ####[facility] [address] [place], [address] CO2 [Moles/Vol] 19.0 mmol/L Low 21.0-32.0 [facility] Comment on above: Performed By: #### L 300.8000, L100.0100, L501.2450, L500.4050, L500.3400, L503.7505 ####[facility] [address] [place], [address] Creatinine [Mass/Vol] 0.88 mg/dL Normal 0.70-1.20 [facility] Comment on above: Performed By: #### L 300.8000, L100.0100, L501.2450, L500.4050, L500.3400, L503.7505 ####[facility] [address] [place], [address] ECRCL 70.45 ml/min Normal 50-250 [facility] Comment on above: Performed By: #### L 300.8000, L100.0100, L501.2450, L500.4050, L500.3400, L503.7505 ####[facility] [address] [place], [address] GAP 13 Normal 5-15 [facility] Comment on above: Performed By: #### L 300.8000, L100.0100, L501.2450, L500.4050, L500.3400, L503.7505 ####[facility] [address] [place], [address] GFR/1.73 sq M.predicted among non-blacks MDRD (S/P/Bld) [Vol rate/Area] 83 mL/min/{1.73_m2} Normal >60 [facility] Comment on above: Result Comment: mL/m in/1.73m2 CKD-EPI Creatinine Equation (2020) Performed By: #### L 300.8000, L100.0100, L501.2450, L500.4050, L500.3400, L503.7505 ####[facility] [address] [place], [address] Glucose [Mass/Vol] 171 mg/dL High 70-99 [facility] Comment on above: Performed By: #### L 300.8000, L100.0100, L501.2450, L500.4050, L500.3400, L503.7505 ####[facility] [address] [place], [address] Potassium [Moles/Vol] 4.4 mmol/L Normal 3.3-5.1 [facility] Comment on above: Performed By: #### L 300.8000, L100.0100, L501.2450, L500.4050, L500.3400, L503.7505 ####[facility] [address] [place], [address] Sodium [Moles/Vol] 135 mmol/L Normal 133-145 [facility] Comment on above: Performed By: #### L 300.8000, L100.0100, L501.2450, L500.4050, L500.3400, L503.7505 ####[facility] [address] [place], [address] Urea nitrogen [Mass/Vol] 19 mg/dL Normal 4-19 [facility] Comment on above: Performed By: #### L 300.8000, L100.0100, L501.2450, L500.4050, L500.3400, L503.7505 ####[facility] [address] [place], [address] D-Dimer Quantitative (DVT/PE )on 07-20-2024 D-DIMER QUANT 1.06 FEU/ug/m Invalid Interpretation Code 0.27-0.49 [facility] Comment on above: Result Comment: D-Di denice ELEVATED (>0.49): Additional studies and clinicalassessments are indicated to conclude diagnosis of:Deep Vein Thrombosis (DVT) or Pulmonary Embolism (PE)CRITICAL VALUE CALLED TO 07/20/24 Naga Aguilera.RESULTS READ BACK BY SAME. Performed By: #### L 300.8000, L100.0100, L501.2450, L500.4050, L500.3400, L503.7505 ####[facility] [address] [place], [address] Emergency Department Summary on 07-20-2024 Emergency Department Summary Normal [facility] Eosinophil percentageOrdered By: Carlos Nair on 07-20-2024 Eosinophils/100 WBC (Bld) 0.0 % 0-5 [facility] Erythrocyte distribution wid th ratioOrdered By: Carlos Nair on 07-20-2024 Erythrocyte distribution width (RBC) [Ratio] 14.1 % 11.6-14.6 [facility] Erythrocyte distribution wid th standard deviationOrdered By: Carlos Nair on 07-20-2024 Erythrocyte distribution width (RBC) [Ratio] 51.0 fl High 35.1-43.9 [facility] Glomerular filtration rate ( GFR) estimation/1.73 sq m using serum, plasma, or whole bOrdered By: Carlos Nair on 07-20-2024 GFR/1.73 sq M.predicted among non-blacks MDRD (S/P/Bld) [Vol rate/Area] 83 mL/min/{1.73_m2} >60 [facility] Comment on above: mL/min/1.73m2 CKD-EP I Creatinine Equation (2020) H AND P Exam - Hospitaliston 07-20-2024 H&P Exam - Hospitalist Normal [facility] Hematocrit Auto (Bld) [Volum e fraction]Ordered By: Carlos Nair on 07-20-2024 Hematocrit (Bld) [Volume fraction] 40.2 % 37-47 [facility] Hemoglobin A1c percentageOrd ered By: Sergio Whalen on 07-20-2024 HbA1c (Bld) [Mass fraction] 5.6 % <5.7 [facility] Comment on above: Normal < 5.7 % Predi abetic 5.7 - 6.4 % Diabetic >or= 6.5 % Please note range changes. Hemoglobin measurementOrdere d By: Carlos Nair on 07-20-2024 Hemoglobin (Bld) [Mass/Vol] 13.2 g/dL 12.0-15.0 [facility] Hyaline casts LM.LPF (Urine sed) [#/Area]Ordered By: Carlos Nair on 07-20-2024 Hyaline casts (Urine sed) [#/Area] 5 /[LPF] 0-5 [facility] Immature granulocytes/100 WB C Auto (Bld)Ordered By: Carlos Nair on 07-20-2024 Immature granulocytes/100 WBC (Bld) 1.000 % High 0.0-0.9 [facility] Comment on above: IG% - Immature Granu locytes (promyelocytes, myelocytes and metamyelocytes) > 1% indicates that a LEFT SHIFT is Present. Ketones Test strip Ql (U)Ord ered By: Carlos Nair on 07-20-2024 Ketones Ql (U) Negative Negative [facility] L499.0042on 07-20-2024 Trop T High Sen 36 ng/L High <=14 [facility] Comment on above: Performed By: #### L 499.0042 ####[facility] [address] [place], [address] L501.4021on 07-20-2024 Trop T High Sen 27 ng/L High <=14 [facility] Comment on above: Performed By: #### L 501.4021 ####[facility] [address] [place], [address] L503.7505on 07-20-2024 Natriuretic peptide B (Bld) [Mass/Vol] 6468 pg/mL High <=450 [facility] Comment on above: Result Comment: Hear t Failure Unlikely: < 300 pg/mLHeart Failure Likely< 50 Years: > 450 pg/mL50-75 Years: > 900 pg/mL>75 Years: > 1800 pg/mL Performed By: #### L 300.8000, L100.0100, L501.2450, L500.4050, L500.3400, L503.7505 ####[facility] [address] [place], [address] Laboratory - Chemistry and C hemistry - challengeOrdered By: Carlos Nair on 07-20-2024 AST [Catalytic activity/Vol] 26 U/L <32 [facility] Lipaseon 07-20-2024 Lipase [Catalytic activity/Vol] 32 U/L Normal 13-75 [facility] Comment on above: Result Comment: Liam rader note:LIPASE revised reference range effective 22.New Lipase methodology. Expected to produce lower valuesthan the previous assay method.NEW Reference Range: 13 - 75 U/L Performed By: #### L 300.8000, L100.0100, L501.2450, L500.4050, L500.3400, L503.7505 ####[facility] [address] [place], [address] Lipase measurementOrdered By : Carlos Nair on 07-20-2024 Lipase [Catalytic activity/Vol] 32 U/L 13-75 [facility] Comment on above: Please note:LIPASE r evised reference range effective 22. New Lipase methodology. Expected to produce lower values than the previous assay method. NEW Reference Range: 13 - 75 U/L Liver Profileon 07-20-2024 Albumin [Mass/Vol] 4.3 g/dL Normal 3.5-5.0 [facility] Comment on above: Performed By: #### L 300.8000, L100.0100, L501.2450, L500.4050, L500.3400, L503.7505 ####[facility] [address] [place], [address] ALK PHOS 116 U/L High 35-104 [facility] Comment on above: Performed By: #### L 300.8000, L100.0100, L501.2450, L500.4050, L500.3400, L503.7505 ####[facility] [address] [place], [address] ALT [Catalytic activity/Vol] 34 U/L Normal <=34 [facility] Comment on above: Performed By: #### L 300.8000, L100.0100, L501.2450, L500.4050, L500.3400, L503.7505 ####[facility] [address] [place], [address] AST [Catalytic activity/Vol] 26 U/L Normal <=31 [facility] Comment on above: Performed By: #### L 300.8000, L100.0100, L501.2450, L500.4050, L500.3400, L503.7505 ####[facility] [address] [place], [address] Bilirubin [Mass/Vol] 0.61 mg/dL Normal 0.00-1.30 [facility] Comment on above: Performed By: #### L 300.8000, L100.0100, L501.2450, L500.4050, L500.3400, L503.7505 ####[facility] [address] [place], [address] Bilirubin.direct [Mass/Vol] 0.29 mg/dL Normal 0.00-0.30 [facility] Comment on above: Performed By: #### L 300.8000, L100.0100, L501.2450, L500.4050, L500.3400, L503.7505 ####[facility] [address] [place], [address] Globulin (S) [Mass/Vol] 2.5 g/dL Normal 2.2-4.2 [facility] Comment on above: Performed By: #### L 300.8000, L100.0100, L501.2450, L500.4050, L500.3400, L503.7505 ####[facility] [address] [place], [address] T PROT 6.8 g/dL Normal 5.9-8.4 [facility] Comment on above: Performed By: #### L 300.8000, L100.0100, L501.2450, L500.4050, L500.3400, L503.7505 ####[facility] [address] [place], [address] MCV (mean corpuscular volume ) determinationOrdered By: Carlos Nair on 07-20-2024 MCV (RBC) [Entitic vol] 97.8 fL 81-99 [facility] Magnesium measurement (mass/ volume)Ordered By: Sergio Whalen on 07-20-2024 Magnesium (Unsp spec) [Mass/Vol] 1.9 mg/dL 1.5-2.2 [facility] Mean corpuscular hemoglobin (MCH) determinationOrdered By: Carlos Nair on 07-20-2024 MCH (RBC) [Entitic mass] 32.1 pg High 27.0-32.0 [facility] Mean corpuscular hemoglobin concentration (MCHC) determinationOrdered By: Carlos Nair on 07-20-2024 MCHC (RBC) [Mass/Vol] 32.8 g/dL 32-36 [facility] Mean platelet volume determi nationOrdered By: Carlos Nair on 07-20-2024 Platelet mean volume (Bld) [Entitic vol] 10.3 fL 6.2-12.0 [facility] Microscopic analysis of urin e for red blood cells (RBC)Ordered By: Carlos Nair on 07-20-2024 Microscopic analysis of urine for red blood cells (RBC) 0-5 SEEN /hpf 0-5 [facility] Monocyte percentageOrdered B y: Carlos Nair on 07-20-2024 Monocytes/100 WBC (Bld) 1.5 % 0-10 [facility] Mucus LM Ql (Urine sed)Order ed By: Carlos Nair on 07-20-2024 Mucus Ql (Urine sed) 1+ /hpf [facility] Natriuretic peptide.B prohor abbey N-Terminal [Mass/volume] in Serum or PlasmaOrdered By: Carlos Nair on 07-20-2024 Natriuretic peptide.B prohormone N-Terminal [Mass/Vol] 6468 pg/mL High <450 [facility] Comment on above: Heart Failure Unlike ly: < 300 pg/mLHeart Failure Likely< 50 Years: > 450 pg/mL50-75 Years: > 900 pg/mL>75 Years: > 1800 pg/mL Neutrophil percentageOrdered By: Carlos Nair on 07-20-2024 Neutrophils/100 WBC (Bld) 94.7 % High 47-70 [facility] Nitrite Test strip Ql (U)Ord ered By: Carlos Nair on 07-20-2024 Nitrite Ql (U) Negative Negative [facility] Nucleated red blood cell per centageOrdered By: Carlos Nair on 07-20-2024 Nucleated RBC/100 WBC (Bld) [Ratio] 0 % 0-5 [facility] Platelet countOrdered By: Brandy Nair on 07-20-2024 Platelets (Bld) [#/Vol] 303 10*3/uL 150-450 [facility] Potassium measurement (mass/ volume)Ordered By: Carlos Nair on 07-20-2024 Potassium (Unsp spec) [Mass/Vol] 4.4 mmol/L 3.3-5.1 [facility] ,Urineon 07-20-2024 Beta HCG ( test) Ql (U) Negative Normal [facility] Comment on above: Result Comment: Very dilute urine specimens, as indicated by a low specificgravity, may not contain business office representative levels of hCG.If is still suspected, a first morning urinespecimen should be collected 48 hours later and tested. Performed By: #### L 400.0001, L400.7600 ####[facility] [address], [place], [address] Protein Test strip Ql (U)Ord ered By: Carlos Nair on 07-20-2024 Protein Ql (U) 100 mg/dl High Negative [facility] RBC Auto (Bld) [#/Vol]Ordere d By: Carlos Nair on 07-20-2024 RBC (Bld) [#/Vol] 4.11 10*6/uL Low 4.2-5.4 [facility] Serum creatinine measurement (mass/volume)Ordered By: Carlos Nair on 07-20-2024 Creatinine [Mass/Vol] 0.88 mg/dL 0.70-1.20 [facility] Serum globulin measurementOr dered By: Carlos Nair on 07-20-2024 Globulin (S) [Mass/Vol] 2.5 g/dL 2.2-4.2 [facility] Serum glucose measurement (m ass/volume)Ordered By: Carlos Nair on 07-20-2024 Glucose [Mass/Vol] 171 mg/dL High 70-99 [facility] Serum or plasma alanine hair otransferase (ALT) measurementOrdered By: Carlos Nair on 07-20-2024 ALT [Catalytic activity/Vol] 34 U/L <35 [facility] Serum or plasma albumin leslie urement (mass/volume)Ordered By: Carlos Nair on 07-20-2024 Albumin [Mass/Vol] 4.3 g/dL 3.5-5.0 [facility] Serum or plasma albumin/glob ulin mass ratioOrdered By: Carlos Nair on 07-20-2024 Albumin/Globulin [Mass ratio] 1.7 {ratio} 0.9-2.4 [facility] Serum or plasma alkaline delfin sphatase measurementOrdered By: Carlos Nair on 07-20-2024 ALP [Catalytic activity/Vol] 116 U/L High 35-104 [facility] Serum or plasma calcium leslie urement (mass/volume)Ordered By: Carlos Nair on 07-20-2024 Calcium [Mass/Vol] 9.3 mg/dL 7.6-11.0 [facility] Serum or plasma urea nitroge n measurement (mass/volume)Ordered By: Carlos Nair on 07-20-2024 Urea nitrogen [Mass/Vol] 19 mg/dL 4-19 [facility] Sodium levelOrdered By: Andrae Nair on 07-20-2024 Sodium [Moles/Vol] 135 mmol/L 133-145 [facility] Squamous epithelial cells de tection in urine sediment by light microscopyOrdered By: Carlos Nair on 07-20-2024 Epithelial cells.squamous LM Ql (Urine sed) 5-10 SEEN /hpf 5-10 [facility] TSH DL <= 0.005 mIU/L QnOrde red By: Sergio Whalen on 07-20-2024 TSH Qn 1.400 uIU/mL 0.300-4.20 0 [facility] Total proteinOrdered By: Jacinto Nair on 07-20-2024 Protein [Mass/Vol] 6.8 g/dL 5.9-8.4 [facility] Troponin T.cardiac [Mass/vol ume] in Serum or Plasma by High sensitivity methodOrdered By: Carlos Nair on 07-20-2024 Troponin T.cardiac High sensitivity method [Mass/Vol] 37 ng/L High <14 [facility] Troponin T.cardiac High sensitivity method [Mass/Vol] 36 ng/L High <14 [facility] Troponin T.cardiac High sensitivity method [Mass/Vol] 27 ng/L High <14 [facility] Urinalysis, Completeon 07-20 BACTERIA 2+ /hpf Normal None Seen [facility] Comment on above: Order Comment: CLEAN CATCH Performed By: #### L 400.0001, L400.7600 ####[facility] [address] [place], [address] CAST,HYALINE 5-10 SEEN Normal 0-5 [facility] Comment on above: Order Comment: CLEAN CATCH Performed By: #### L 400.0001, L400.7600 ####[facility] [address] [place], [address] EPI,SQUAMOUS 5-10 SEEN Normal 5-10 [facility] Comment on above: Order Comment: CLEAN CATCH Performed By: #### L 400.0001, L400.7600 ####[facility] [address] [place], [address] Mucus Ql (Urine sed) 1+ /hpf Normal [facility] Comment on above: Order Comment: CLEAN CATCH Performed By: #### L 400.0001, L400.7600 ####[facility] [address] [place], [address] RBC 0-5 SEEN Normal 0-5 [facility] Comment on above: Order Comment: CLEAN CATCH Performed By: #### L 400.0001, L400.7600 ####[facility] [address] [place], [address] BILIRUBIN URINE Negative Normal Negative [facility] Comment on above: Order Comment: CLEAN CATCH Performed By: #### L 400.0001, L400.7600 ####[facility] [address] [place], [address] Clarity (U) Clear Normal Clear [facility] Comment on above: Order Comment: CLEAN CATCH Performed By: #### L 400.0001, L400.7600 ####[facility] [address] [place], [address] Color (U) Straw Normal Yellow [facility] Comment on above: Order Comment: CLEAN CATCH Performed By: #### L 400.0001, L400.7600 ####[facility] [address] [place], [address] GLUCOSE, UR Normal Normal Normal [facility] Comment on above: Order Comment: CLEAN CATCH Performed By: #### L 400.0001, L400.7600 ####[facility] [address] [place], [address] KETONE UR Negative Normal Negative [facility] Comment on above: Order Comment: CLEAN CATCH Performed By: #### L 400.0001, L400.7600 ####[facility] [address] [place], [address] LEUK ESTERASE Negative Normal Negative [facility] Comment on above: Order Comment: CLEAN CATCH Performed By: #### L 400.0001, L400.7600 ####[facility] [address] [place], [address] Nitrite Ql (U) Negative Normal Negative [facility] Comment on above: Order Comment: CLEAN CATCH Performed By: #### L 400.0001, L400.7600 ####[facility] [address] [place], [address] OCCULT BLOOD-UR 25 /ul Abnormal Negative [facility] Comment on above: Order Comment: CLEAN CATCH Performed By: #### L 400.0001, L400.7600 ####[facility] [address] [place], [address] pH UR 6.0 Normal 5.0 - 8.0 [facility] Comment on above: Order Comment: CLEAN CATCH Performed By: #### L 400.0001, L400.7600 ####[facility] [address] [place], [address] PROT DIPSTX 100 mg/dl Abnormal Negative [facility] Comment on above: Order Comment: CLEAN CATCH Performed By: #### L 400.0001, L400.7600 ####[facility] [address] [place], [address] SP.GR. DIPSTX 1.020 Normal 1.002-1.03 0 [facility] Comment on above: Order Comment: CLEAN CATCH Performed By: #### L 400.0001, L400.7600 ####[facility] [address] [place], [address] UROBILI Normal Normal Normal [facility] Comment on above: Order Comment: CLEAN CATCH Performed By: #### L 400.0001, L400.7600 ####[facility] [address] [place], [address] WBC 0 SEEN Normal 0-5 [facility] Comment on above: Order Comment: CLEAN CATCH Performed By: #### L 400.0001, L400.7600 ####[facility] [address] [place], [address] Urine clarityOrdered By: Jacinto Nair on 07-20-2024 Clarity (U) Clear Clear [facility] Urine color determinationOrd ered By: Carlos Nair on 05-09-2025 Color (U) Straw Yellow [facility] Urine glucose detectionOrder ed By: Carlos Nair on 07-20-2024 Glucose Ql (U) Normal mg/dl Normal [facility] Urine leukocyte esterase det ection by dipstickOrdered By: Carlos Nair on 07-20-2024 Leukocyte esterase Test strip Ql (U) Negative Negative [facility] Urine pHOrdered By: Carlos mandel on 07-20-2024 pH (U) 6.0 [pH] 5.0 - 8.0 [facility] Urine testOrdered By: Carlos Nair on 07-20-2024 HCG ( test) Ql (U) Negative [facility] Comment on above: Very dilute urine sp ecimens, as indicated by a low specificgravity, may not contain business office representative levels of hCG. If is still suspected, a first morning urinespecimen should be collected 48 hours later and tested. Urine sediment bacteria coun t by microscopy (number/high power field)Ordered By: Carlos Nair on 07-20-2024 Bacteria LM.HPF (Urine sed) [#/Area] 2 /[HPF] None Seen [facility] Urine specific gravity measu rementOrdered By: Carlos Nair on 07-20-2024 Specific gravity (U) [Rel density] 1.020 1.002-1.03 0 [facility] Urine urobilinogen measureme ntOrdered By: Carlos Nair on 07-20-2024 Urobilinogen Ql (U) Normal mg/dl Normal [facility] White blood cell (WBC) count Ordered By: Carlos Nair on 07-20-2024 WBC (Bld) [#/Vol] 14.3 10*3/uL High 4.4-11.0 [facility] White blood cell countOrdere d By: Carlos Nair on 07-20-2024 White blood cell count 0 SEEN /hpf 0-5 [facility] Colonoscopy Reporton 025 Colonoscopy Report Normal [facility] EGD Reporton 07-12-2024 EGD Report Normal [facility] MR/POSTOP.ANEon 07-12-2024 MR/POSTOP.ANE Normal [facility] MR/POPTHMKC9jx 07-12-2024 MR/POSTOPAN2 Normal [facility] Surgery Specimen Level Amber 07-12-2024 Surgery Specimen Level IV [facility] Comment on above: Performed By: #### P SUIV ####[facility] [address] [place], [address] MR/PAT.ANEon 07-11-2024 MR/PAT.ANE Normal [facility] 12 Lead EKG performed by BMS on 07-10-2024 12 Lead EKG performed by B[facility] Cardiology Visit Reporton Cardiology Visit Report Normal [facility] MR/PAT.ANEon 07-10-2024 MR/PAT.ANE [facility] CNDSon 07-08-2024 CNDS HNO ID: [id number] Author: DEX WILKINSON MD Service: Family Practice [...] call for appointment?: Yes Dex Wilkinson MD [phone] [facility] [address] PCP Requested Referral GENERAL: alert, no distress, [...] MD FOLLOW-UP APPOINTMENTS ALREADY SCHEDULED WITH A [facility] PROVIDER: No future appointments. ALLERGIES Allergen Reactions Prozac [Fluoxetine * Other: See Comments suicidal ideations Ativan [Lorazepam] Vomiting Azithromycin Intolerance [place] Anaphylaxis [place] Anaphylaxis pickles Fish Anaphylaxis Levofloxacin In D5w [...] Your Medications These medications were sent to [facility] [place] [address] - [address] [place] [address] - [phone] [place], [place] [id number] dicyclomine 10 mg capsule oxyCODONE IR 5 mg immediate release tablet pantoprazole DR 40 mg tablet psyllium 3.4 gram packet sucralfate 1 gram tablet Additional Information Additional Health Information I Need to Kno (more content not included)... Normal [facility] CBC W Auto Differential pane l (Bld)on 07-07-2024 Basophils (Bld) [#/Vol] 0.03 10*3/uL Normal <0.11 [facility] Comment on above: Order Comment: David horton Type: BLOOD SPECIMENOrdering Facility: [facility] Address: [address] [place] [address] Performed By: #### 5 7021-8 ####[facility]ORYCLIA [id number] [place] [address] [place] Basophils/100 WBC (Bld) 0.3 % Normal [facility] Comment on above: Order Comment: David horton Type: BLOOD SPECIMENOrdering Facility: [facility] Address: [address] [place] [address] Performed By: #### 5 7021-8 ####[facility]ATORYCLIA [id number] [place] [address] [place] Differential cell count method Nom (Bld) Auto Normal [facility] Comment on above: Order Comment: David horton Type: BLOOD SPECIMENOrdering Facility: [facility] Address: [address] [place] [address] Performed By: #### 5 7021-8 ####[facility]ORYCL[facility] [id number] [place] [address] [place] Eosinophils (Bld) [#/Vol] 0.12 10*3/uL Normal <0.46 [facility] Comment on above: Order Comment: Speci men Type: BLOOD SPECIMENOrdering Facility: [facility] Address: [address] [place] [address] Performed By: #### 5 7021-8 ####[facility]ATORYCLIA [id number] [place] [address] [place] Eosinophils/100 WBC (Bld) 1.4 % Normal [facility] Comment on above: Order Comment: Speci men Type: BLOOD SPECIMENOrdering Facility: [facility] Address: [address] [place] [address] Performed By: #### 5 7021-8 ####[facility]ORYCL[facility] [id number] [address] [place] Erythrocyte distribution width (RBC) [Ratio] 14.4 % Normal 11.5-15.0 [facility] Comment on above: Order Comment: Speci men Type: BLOOD SPECIMENOrdering Facility: [facility] Address: [address] [place] [address] Performed By: #### 5 7021-8 ####[facility]ORYCL[facility] [id number] [address] [place] Hematocrit (Bld) [Volume fraction] 41.1 % Normal 36.0-46.0 [facility] Comment on above: Order Comment: Speci men Type: BLOOD SPECIMENOrdering Facility: [facility] Address: [address] [place] [address] Performed By: #### 5 7021-8 ####[facility]ORYCLIA [id number] [place] [address] [place] Hemoglobin (Bld) [Mass/Vol] 13.4 g/dL Normal 11.5-15.5 [facility] Comment on above: Order Comment: Speci men Type: BLOOD SPECIMENOrdering Facility: [facility] Address: [address] [place] [address] Performed By: #### 5 7021-8 ####[facility]ATORYCLIA [id number] [place] [address] [place] Immature granulocytes (Bld) [#/Vol] 0.03 10*3/uL Normal <0.10 [facility] Comment on above: Order Comment: Speci men Type: BLOOD SPECIMENOrdering Facility: [facility] Address: [address] [place] [address] Performed By: #### 5 7021-8 ####[facility]ORYCLIA [id number] [address] Immature granulocytes/100 WBC (Bld) 0.3 % Normal [facility] Comment on above: Order Comment: Speci men Type: BLOOD SPECIMENOrdering Facility: [facility] Address: [address] [place] [address] Performed By: #### 5 7021-8 ####[facility]ATORYCLIA [id number] [place] [address] [place] Lymphocytes (Bld) [#/Vol] 0.98 10*3/uL Low 1.00-4.00 [facility] Comment on above: Order Comment: Speci men Type: BLOOD SPECIMENOrdering Facility: [facility] Address: [address] [place] [address] Performed By: #### 5 7021-8 ####[facility]ORYCLIA [id number] [address] [place] Lymphocytes/100 WBC (Bld) 11.1 % Normal [facility] Comment on above: Order Comment: Speci men Type: BLOOD SPECIMENOrdering Facility: [facility] Address: [address] [place] [address] Performed By: #### 5 7021-8 ####[facility] LABORATORYCLIA [id number] [place] [address] [place] MCH (RBC) [Entitic mass] 31.8 pg Normal 26.0-34.0 [facility] Comment on above: Order Comment: Speci men Type: BLOOD SPECIMENOrdering Facility: [facility] Address: [address] [place] [address] Performed By: #### 5 7021-8 ####[facility]ORATORYCLIA [id number] [address] MCHC (RBC) [Mass/Vol] 32.6 g/dL Normal 30.5-36.0 [facility] Comment on above: Order Comment: Speci men Type: BLOOD SPECIMENOrdering Facility: [facility] Address: [address] [place] [address] Performed By: #### 5 7021-8 ####[facility]ORATORYCLIA [id number] [address] MCV (RBC) [Entitic vol] 97.6 fL Normal 80.0-100.0 [facility] Comment on above: Order Comment: Speci men Type: BLOOD SPECIMENOrdering Facility: [facility] Address: [address] [place] [address] Performed By: #### 5 7021-8 ####[facility]ORATORYCLIA [id number] [address] Monocytes (Bld) [#/Vol] 0.44 10*3/uL Normal <0.87 [facility] Comment on above: Order Comment: Speci men Type: BLOOD SPECIMENOrdering Facility: [facility] Address: [address] [place] [address] Performed By: #### 5 7021-8 ####[facility]ORATORYCLIA [id number] [address] Monocytes/100 WBC (Bld) 5.0 % Normal [facility] Comment on above: Order Comment: Speci men Type: BLOOD SPECIMENOrdering Facility: [facility] Address: [address] [place] [address] Performed By: #### 5 7021-8 ####[facility]ORATORYCLIA [id number] [address] Neutrophils (Bld) [#/Vol] 7.19 10*3/uL Normal 1.45-7.50 [facility] Comment on above: Order Comment: Speci men Type: BLOOD SPECIMENOrdering Facility: [facility] Address: [address] [place] [address] Performed By: #### 5 7021-8 ####[facility]ORATORYCLIA [id number] [address] [place] Neutrophils/100 WBC (Bld) 81.9 % Normal [facility] Comment on above: Order Comment: Speci men Type: BLOOD SPECIMENOrdering Facility: [facility] Address: [address] [place] [address] Performed By: #### 5 7021-8 ####[facility] LABORATORYCLIA [id number] [place] [address] [place] Nucleated RBC (Bld) [#/Vol] 10*3/uL Normal <0.01 [facility] Comment on above: Order Comment: Speci men Type: BLOOD SPECIMENOrdering Facility: [facility] Address: [address] [place] [address] Performed By: #### 5 7021-8 ####[facility] LABORATORYCLIA [id number] [place] [address] [place] Nucleated RBC/100 WBC (Bld) [Ratio] 0.0 /100 WBC Normal [facility] Comment on above: Order Comment: Speci men Type: BLOOD SPECIMENOrdering Facility: [facility] Address: [address] [place] [address] Performed By: #### 5 7021-8 ####[facility] LABORATORYCLIA [id number] [place] [address] [place] Platelet mean volume (Bld) [Entitic vol] 10.3 fL Normal 9.0-12.7 [facility] Comment on above: Order Comment: Speci men Type: BLOOD SPECIMENOrdering Facility: [facility] Address: [address] [place] [address] Performed By: #### 5 7021-8 ####[facility] LABORATORYCLIA [id number] [place] [address] [place] Platelets (Bld) [#/Vol] 241 10*3/uL Normal 150-400 [facility] Comment on above: Order Comment: Speci men Type: BLOOD SPECIMENOrdering Facility: [facility] Address: [address] [place] [address] Performed By: #### 5 7021-8 ####[facility]ORATORYCLIA [id number] [address] [facility] RBC (Bld) [#/Vol] 4.21 10*6/uL Normal 3.90-5.20 [facility] Comment on above: Order Comment: Speci men Type: BLOOD SPECIMENOrdering Facility: [facility] Address: [address] [place] [address] Performed By: #### 5 7021-8 ####[facility]ORATORYCLIA [id number] [address] WBC (Bld) [#/Vol] 8.79 10*3/uL Normal 3.70-11.00 [facility] Comment on above: Order Comment: Speci men Type: BLOOD SPECIMENOrdering Facility: [facility] Address: [address] [place] [address] Performed By: #### 5 7021-8 ####[facility] LABORATORYCLIA [id number] [address] CONSULT PROGon 07-07-2024 CONSULT PROG HNO ID: [id number] Author: KAYLYN ELLIS MD Service: Gastroenterology Author [...] recent colonoscopy report completed December [address] [facility] - Consider cardiology consult for #8 - [...] looser consistency and with small volume BRB. [place] colonoscopy records were incomplete as report was [...] Cooperative. NAD EYES: No scleral icterus SKIN: Penelope in color. No jaundice LUNGS: Decreased to [...] Ratio <2. (more content not included)... Normal [facility] Comprehensive metabolic 2000 panelon 07-07-2024 Albumin [Mass/Vol] 3.7 g/dL Low 3.9-4.9 [facility] Comment on above: Order Comment: Speci men Type: BLOOD SPECIMENOrdering Facility: [facility] Address: [address] [place] [address] Performed By: #### 2 4323-8 ####[facility] LABORATORYCLIA [id number] [place] [address] [place] ALP [Catalytic activity/Vol] 118 U/L Normal 34-123 [facility] Comment on above: Order Comment: Speci men Type: BLOOD SPECIMENOrdering Facility: [facility] Address: [address] [place] [address] Performed By: #### 2 4323-8 ####[facility] LABORATORYCLIA [id number] [address] STATES [facility] ALT [Catalytic activity/Vol] 24 U/L Normal 7-38 [facility] Comment on above: Order Comment: Speci men Type: BLOOD SPECIMENOrdering Facility: [facility] Address: [address] [place] [address] Performed By: #### 2 4323-8 ####[facility] LABORATORYCLIA [id number] [place] [address] [place] Anion gap [Moles/Vol] 10 mmol/L Normal 8-15 [facility] Comment on above: Order Comment: Speci men Type: BLOOD SPECIMENOrdering Facility: [facility] Address: [address] [place] [address] Performed By: #### 2 4323-8 ####[facility] LABORATORYCLIA [id number] [address] [place] AST [Catalytic activity/Vol] 20 U/L Normal 13-35 [facility] Comment on above: Order Comment: Speci men Type: BLOOD SPECIMENOrdering Facility: [facility] Address: [address] [place] [address] Performed By: #### 2 4323-8 ####[facility] LABORATORYCLIA [id number] [address] [place] Bilirubin [Mass/Vol] 1.3 mg/dL Normal 0.2-1.3 [facility] Comment on above: Order Comment: Speci men Type: BLOOD SPECIMENOrdering Facility: [facility] Address: [address] [place] [address] Performed By: #### 2 4323-8 ####[facility] LABORATORYCLIA [id number] [address] [facility] Calcium [Mass/Vol] 9.0 mg/dL Normal 8.5-10.2 [facility] Comment on above: Order Comment: Speci men Type: BLOOD SPECIMENOrdering Facility: [facility] Address: [address] [place] [address] Performed By: #### 2 4323-8 ####[facility] LABORATORYCLIA [id number] [place] [address] [place] Chloride [Moles/Vol] 104 mmol/L Normal 98-107 [facility] Comment on above: Order Comment: Speci men Type: BLOOD SPECIMENOrdering Facility: [facility] Address: [address] [place] [address] Performed By: #### 2 4323-8 ####[facility] LABORATORYCLIA [id number] [place] [address] [place] CO2 [Moles/Vol] 25 mmol/L Normal 22-30 [facility] Comment on above: Order Comment: Speci men Type: BLOOD SPECIMENOrdering Facility: [facility] Address: [address] [place] [address] Performed By: #### 2 4323-8 ####[facility] LABORATORYCLIA [id number] [address] [place] Creatinine [Mass/Vol] 0.81 mg/dL Normal 0.58-0.96 [facility] Comment on above: Order Comment: Speci men Type: BLOOD SPECIMENOrdering Facility: [facility] Address: [address] [place] [address] Performed By: #### 2 4323-8 ####[facility] LABORATORYCLIA [id number] [address] Creatinine and Glomerular filtration rate.predicted panel (S/P/Bld) 92 mL/min/1.73m??? Normal >=60 [facility] Comment on above: Order Comment: Speci men Type: BLOOD SPECIMENOrdering Facility: [facility] Address: [address] [place] [address] Result Comment: Sandie mated Glomerular Filtration Rate [...] Performed By: #### 2 4323-8 ####[facility] LABORATORYCLIA [id number] [place] [address] [place] Glucose [Mass/Vol] 104 mg/dL High 74-99 [facility] Comment on above: Order Comment: Speci men Type: BLOOD SPECIMENOrdering Facility: [facility] Address: [address] [place] [address] Result Comment: The [place] Diabetes [employer] (ADA) provides guidance for cutoff [...] Standards of Medical Care in Diabetes 2016, [place] [employer]. Diabetes Care. 2016.39(Suppl 1). Performed By: #### 2 4323-8 ####[facility] LABORATORYCLIA [id number] [place] [address] [place] Potassium [Moles/Vol] 4.1 mmol/L Normal 3.7-5.1 [facility] Comment on above: Order Comment: Kianai men Type: BLOOD SPECIMENOrdering Facility: [facility] Address: [address] [place] [address] Performed By: #### 2 4323-8 ####[facility] LABORATORYCLIA [id number] [place] [id number] [place] Protein [Mass/Vol] 6.3 g/dL Normal 6.3-8.0 [facility] Comment on above: Order Comment: Speci men Type: BLOOD SPECIMENOrdering Facility: [facility] Address: [address] [place] [address] Performed By: #### 2 4323-8 ####[facility] LABORATORYCLIA [id number] [place] [address] [place] Sodium [Moles/Vol] 139 mmol/L Normal 136-144 [facility] Comment on above: Order Comment: Spectian horton Type: BLOOD SPECIMENOrdering Facility: [facility] Address: [address] [place] [address] Performed By: #### 2 4323-8 ####[facility] LABORATORYCLIA [id number] [address] Urea nitrogen [Mass/Vol] 7 mg/dL Normal 7-21 [facility] Comment on above: Order Comment: Speci sol Type: BLOOD SPECIMENOrdering Facility: [facility] Address: [address] [place] [address] Performed By: #### 2 4323-8 ####[facility] LABORATORYCLIA [id number] [address] [facility] ANES POSTPROC EVALon 025 ANES POSTPROC EVAL HNO ID: [id number] Author: MARVA DAMON MD Service: Anesthesiology Author Type: Anesthesiologist Type: Anesthesia Postprocedure Evaluation Filed: 07/06/2024 10:50 Note Text: POST ANESTHESIA EVALUATION NOTE : 1980 Procedure Summary Date: 07/06/24 Room / Location: [facility] Endoscopy Anesthesia Start: 934 Anesthesia Stop: 954 Procedure: EGD DIAGNOSTIC Diagnosis: (Abdominal pain) Scheduled Providers: Kaylyn Ellis MD; Eliana Ellis APRN.TIE HACKER; Marva Damon MD Responsible Provider: Marva Damon [...] July 06, 2024 TIME: 10:50 AM CSN: [id number] Normal [facility] ANES PRE-OPon 07-06-2024 ANES PRE-OP HNO ID: [id number] Author: MARVA DAMON MD Service: Anesthesiology Author Type: Anesthesiologist Type: Anesthesia Preprocedure Evaluation Filed: 07/06/2024 09:18 Note Text: ANESTHESIOLOGY DAY OF SURGERY NOTE : 1980 Procedure Information Date/Time: 07/06/24 1000 Scheduled providers: Kaylyn Ellis MD; Eliana Ellis APRN.TIE HACKER; Marva Damon MD Procedure: EGD DIAGNOSTIC Location: [facility] Endoscopy Estimated body mass index is 22.78 [...] July 06, 2024 TIME: 9:17 AM CSN: [id number] Normal [facility] CBC W Auto Differential pane l (Bld)on 07-06-2024 Basophils (Bld) [#/Vol] 0.03 10*3/uL Normal <0.11 [facility] Comment on above: Order Comment: Speci men Type: BLOOD SPECIMEN [facility]ing Facility: [facility] Address: [address] [place] [address] Performed By: #### 5 8410-2 #### [facility] CLIA [id number] [address] [place] [address] [place] Basophils/100 WBC (Bld) 0.3 % Normal [facility] Comment on above: Order Comment: Speci men Type: BLOOD SPECIMEN Ordering Facility: [facility] Address: [address] [place] [address] Performed By: #### 5 8410-2 #### [facility] CLIA [id number] [address] [place] Differential cell count method Nom (Bld) Auto Normal [facility] Comment on above: Order Comment: Speci men Type: BLOOD SPECIMEN [facility]ing Facility: [facility] Address: [address] [place] [address] Performed By: #### 5 8410-2 #### [facility] CLIA [id number] [address] [place] [address] [place] Eosinophils (Bld) [#/Vol] 0.17 10*3/uL Normal <0.46 [facility] Comment on above: Order Comment: Speci men Type: BLOOD SPECIMEN [facility]ing Facility: [facility] Address: [address] [place] [address] Performed By: #### 5 8410-2 #### [facility] CLIA [id number] [address] Eosinophils/100 WBC (Bld) 1.9 % Normal [facility] Comment on above: Order Comment: Speci men Type: BLOOD SPECIMEN [facility]ing Facility: [facility] Address: [address] [place] [address] Performed By: #### 5 8410-2 #### [facility] CLIA [id number] [address] Erythrocyte distribution width (RBC) [Ratio] 14.5 % Normal 11.5-15.0 [facility] Comment on above: Order Comment: Speci men Type: BLOOD SPECIMEN [facility]ing Facility: [facility] Address: [address] [place] [address] Performed By: #### 5 8410-2 #### [facility] CLIA [id number] [address] [place] Hematocrit (Bld) [Volume fraction] 40.4 % Normal 36.0-46.0 [facility] Comment on above: Order Comment: Speci men Type: BLOOD SPECIMEN [facility]ing Facility: [facility] Address: [address] [place] [address] Performed By: #### 5 8410-2 #### [facility] CLIA [id number] [address] Hemoglobin (Bld) [Mass/Vol] 13.3 g/dL Normal 11.5-15.5 [facility] Comment on above: Order Comment: Speci men Type: BLOOD SPECIMEN [facility]ing Facility: [facility] Address: [address] [place] [address] Performed By: #### 5 8410-2 #### [facility] CLIA [id number] [address] [place] Immature granulocytes (Bld) [#/Vol] 0.03 10*3/uL Normal <0.10 [facility] Comment on above: Order Comment: Speci men Type: BLOOD SPECIMEN [facility]ing Facility: [facility] Address: [address] [place] [address] Performed By: #### 5 8410-2 #### [facility] CLIA [id number] [address] Immature granulocytes/100 WBC (Bld) 0.3 % Normal [facility] Comment on above: Order Comment: Speci men Type: BLOOD SPECIMEN [facility]ing Facility: [facility] Address: [address] [place] [address] Performed By: #### 5 8410-2 #### [facility] CLIA [id number] [address] [place] Lymphocytes (Bld) [#/Vol] 1.51 10*3/uL Normal 1.00-4.00 [facility] Comment on above: Order Comment: Speci men Type: BLOOD SPECIMEN [facility]ing Facility: [facility] Address: [address] [place] [address] Performed By: #### 5 8410-2 #### [facility] CLIA [id number] [address] Lymphocytes/100 WBC (Bld) 16.6 % Normal [facility] Comment on above: Order Comment: Speci men Type: BLOOD SPECIMEN Ordering Facility: [facility] Address: [address] [place] [address] Performed By: #### 5 8410-2 #### [facility] CLIA [id number] [address] [place] MCH (RBC) [Entitic mass] 32.6 pg Normal 26.0-34.0 [facility] Comment on above: Order Comment: Speci men Type: BLOOD SPECIMEN [facility]ing Facility: [facility] Address: [address] [place] [address] Performed By: #### 5 8410-2 #### [facility] CLIA [id number] [address] MCHC (RBC) [Mass/Vol] 32.9 g/dL Normal 30.5-36.0 [facility] Comment on above: Order Comment: Speci men Type: BLOOD SPECIMEN Ordering Facility: [facility] Address: [address] [place] [address] Performed By: #### 5 8410-2 #### [facility] CLIA [id number] [address] MCV (RBC) [Entitic vol] 99.0 fL Normal 80.0-100.0 [facility] Comment on above: Order Comment: Speci men Type: BLOOD SPECIMEN Ordering Facility: [facility] Address: [address] [place] [address] Performed By: #### 5 8410-2 #### [facility] CLIA [id number] [address] Monocytes (Bld) [#/Vol] 0.52 10*3/uL Normal <0.87 [facility] Comment on above: Order Comment: Speci men Type: BLOOD SPECIMEN Ordering Facility: [facility] Address: [address] [place] [address] Performed By: #### 5 8410-2 #### [facility] CLIA [id number] [address] Monocytes/100 WBC (Bld) 5.7 % Normal [facility] Comment on above: Order Comment: Speci men Type: BLOOD SPECIMEN Ordering Facility: [facility] Address: [address] [place] [address] Performed By: #### 5 8410-2 #### [facility] CLIA [id number] [address] [place] [address] [place] Neutrophils (Bld) [#/Vol] 6.82 10*3/uL Normal 1.45-7.50 [facility] Comment on above: Order Comment: Speci men Type: BLOOD SPECIMEN Ordering Facility: [facility] Address: [address] [place] [address] Performed By: #### 5 8410-2 #### [facility] CLIA [id number] [address] [place] Neutrophils/100 WBC (Bld) 75.2 % Normal [facility] Comment on above: Order Comment: Speci men Type: BLOOD SPECIMEN Ordering Facility: [facility] Address: [address] [place] [address] Performed By: #### 5 8410-2 #### [facility] CLIA [id number] [address] [place] [address] [place] Nucleated RBC (Bld) [#/Vol] 10*3/uL Normal <0.01 [facility] Comment on above: Order Comment: Speci men Type: BLOOD SPECIMEN Ordering Facility: [facility] Address: [address] [place] [address] Performed By: #### 5 8410-2 #### [facility] CLIA [id number] [address] [facility] Nucleated RBC/100 WBC (Bld) [Ratio] 0.0 /100 WBC Normal [facility] Comment on above: Order Comment: Speci men Type: BLOOD SPECIMEN Ordering Facility: [facility] Address: [address] [place] [address] Performed By: #### 5 8410-2 #### [facility] CLIA [id number] [address] [place] [address] [place] Platelet mean volume (Bld) [Entitic vol] 10.6 fL Normal 9.0-12.7 [facility] Comment on above: Order Comment: Speci men Type: BLOOD SPECIMEN Ordering Facility: [facility] Address: [address] [place] [address] Performed By: #### 5 8410-2 #### [facility] CLIA [id number] [address] [place] Platelets (Bld) [#/Vol] 239 10*3/uL Normal 150-400 [facility] Comment on above: Order Comment: Speci men Type: BLOOD SPECIMEN Ordering Facility: [facility] Address: [address] [place] [address] Performed By: #### 5 8410-2 #### [facility] CLIA [id number] [address] [place] [address] [place] RBC (Bld) [#/Vol] 4.08 10*6/uL Normal 3.90-5.20 [facility] Comment on above: Order Comment: Speci men Type: BLOOD SPECIMEN Ordering Facility: [facility] Address: [address] [place] [address] Performed By: #### 5 8410-2 #### [facility] CLIA [id number] [address] STATES [facility] WBC (Bld) [#/Vol] 9.08 10*3/uL Normal 3.70-11.00 [facility] Comment on above: Order Comment: Speci men Type: BLOOD SPECIMEN Ordering Facility: [facility] Address: [address] [place] [address] Performed By: #### 5 8410-2 #### [facility] CLIA [id number] [address] [facility] Comprehensive metabolic 2000 panelon 07-06-2024 Albumin [Mass/Vol] 4.1 g/dL Normal 3.9-4.9 [facility] Comment on above: Order Comment: Speci men Type: BLOOD SPECIMENOrdering Facility: [facility] Address: [address] [place] [address] Performed By: #### 2 4323-8 ####[facility]ORATORYCLIA [id number] [place] [address] [place] ALP [Catalytic activity/Vol] 134 U/L High 34-123 [facility] Comment on above: Order Comment: Speci men Type: BLOOD SPECIMENOrdering Facility: [facility] Address: [address] [place] [address] Performed By: #### 2 4323-8 ####[facility]ORATORYCLIA [id number] [place], [place] [id number] [place] [address] [place] ALT [Catalytic activity/Vol] 32 U/L Normal 7-38 [facility] Comment on above: Order Comment: Speci men Type: BLOOD SPECIMENOrdering Facility: [facility] Address: [address] [place] [address] Performed By: #### 2 4323-8 ####[facility]ORATORYCLIA [id number] [place] [address] [facility] [place] Anion gap [Moles/Vol] 11 mmol/L Normal 8-15 [facility] Comment on above: Order Comment: Speci men Type: BLOOD SPECIMENOrdering Facility: [facility] Address: [address] [place] [address] Performed By: #### 2 4323-8 ####[facility]ATORYCLIA [id number] [address] [place] AST [Catalytic activity/Vol] 24 U/L Normal 13-35 [facility] Comment on above: Order Comment: Speci men Type: BLOOD SPECIMENOrdering Facility: [facility] Address: [address] [place] [address] Performed By: #### 2 4323-8 ####[facility]ATORYCLIA [id number] [address] [place] Bilirubin [Mass/Vol] 1.3 mg/dL Normal 0.2-1.3 [facility] Comment on above: Order Comment: Speci men Type: BLOOD SPECIMENOrdering Facility: [facility] Address: [address] [place] [address] Performed By: #### 2 4323-8 ####[facility]ATORYCLIA [id number] [address] Calcium [Mass/Vol] 9.2 mg/dL Normal 8.5-10.2 [facility] Comment on above: Order Comment: Speci men Type: BLOOD SPECIMENOrdering Facility: [facility] Address: [address] [place] [address] Performed By: #### 2 4323-8 ####[facility]ATORYCLIA [id number] [place] [address] [place] Chloride [Moles/Vol] 102 mmol/L Normal 98-107 [facility] Comment on above: Order Comment: Speci men Type: BLOOD SPECIMENOrdering Facility: [facility] Address: [address] [place] [address] Performed By: #### 2 4323-8 ####[facility]ORYCLIA [id number] [address] [place] CO2 [Moles/Vol] 25 mmol/L Normal 22-30 [facility] Comment on above: Order Comment: Speci men Type: BLOOD SPECIMENOrdering Facility: [facility] Address: [address] [place] [address] Performed By: #### 2 4323-8 ####[facility]ORYCLIA [id number] [address] Creatinine [Mass/Vol] 0.85 mg/dL Normal 0.58-0.96 [facility] Comment on above: Order Comment: Speci men Type: BLOOD SPECIMENOrdering Facility: [facility] [facility] Address: [address] [place] [address] Performed By: #### 2 4323-8 ####[facility]ATORYCLIA [id number] [address] Creatinine and Glomerular filtration rate.predicted panel (S/P/Bld) 87 mL/min/1.73m??? Normal >=60 [facility] Comment on above: Order Comment: Speci men Type: BLOOD SPECIMENOrdering Facility: [facility] Address: [address] [place] [address] Result Comment: Sandie mated Glomerular Filtration Rate [...] Performed By: #### 2 4323-8 ####[facility] LABORATORYCLIA [id number] [place] [address] [place] Glucose [Mass/Vol] 91 mg/dL Normal 74-99 [facility] Comment on above: Order Comment: David horton Type: BLOOD SPECIMENOrdering Facility: [facility] Address: [address] [place] [address] Result Comment: The [place] Diabetes Association (ADA) provides guidance for cutoff [...] Standards of Medical Care in Diabetes 2016, [place] [employer]. Diabetes Care. 2016.39(Suppl 1). Performed By: #### 2 4323-8 ####[facility] LABORATORYCLIA [id number] [place] [address] [place] Potassium [Moles/Vol] 3.9 mmol/L Normal 3.7-5.1 [facility] Comment on above: Order Comment: David horton Type: BLOOD SPECIMENOrdering Facility: [facility] Address: [address] [place] [address] Performed By: #### 2 4323-8 ####[facility] LABORATORYCLIA [id number] [place] [address] [place] Protein [Mass/Vol] 6.2 g/dL Low 6.3-8.0 [facility] Comment on above: Order Comment: Kianai men Type: BLOOD SPECIMENOrdering Facility: [facility] Address: [address] [place] [address] Performed By: #### 2 4323-8 ####[facility] LABORATORYCLIA [id number] [place] [address] [place] Sodium [Moles/Vol] 138 mmol/L Normal 136-144 [facility] Comment on above: Order Comment: Speci men Type: BLOOD SPECIMENOrdering Facility: [facility] Address: [address] [place] [address] Performed By: #### 2 4323-8 ####[facility]ORATORYCLIA [id number] [address] [place] Urea nitrogen [Mass/Vol] 9 mg/dL Normal 7-21 [facility] Comment on above: Order Comment: Speci men Type: BLOOD SPECIMENOrdering Facility: [facility] Address: [address] [place] [address] Performed By: #### 2 4323-8 ####[facility] LABORATORYCLIA [id number] [address] [place] Pathology biopsy report David (Tiss)on 07-06-2024 ADDENDUM 1: [facility] Comment on above: Order Comment: Speci sol Type: BLOOD SPECIMEN [facility] Facility: [facility] Address: [address] [place] [address] Result Comment: B. I mmunohistochemical stain for H. pylori is negative. Addendum electronically signed by Jaleesa Valdivia MD on 07/16/2024 at 1121 EDT Performed By: #### 5 8410-2 #### [facility] CLIA [id number] [address] AP DISCLAIMER [facility] Comment on above: Order Comment: Speci [facility] Type: BLOOD SPECIMEN Ordering Facility: [facility] Address: [address] [place] [address] Result Comment: Ubaldo tang Developed Test (LDT) Disclaimer: Performance characteristics of immunohistochemical, immunofluorescent, and chromogenic in-situ hybridization tests have been determined by the performing laboratory within [facility]'s [facility] Pathology and Laboratory Medicine Department ([facility], [facility], [facility], [facility], [facility], On License Of [facility], or [facility]) in a manner consistent with [...] appropriately. Performed By: #### 5 8410-2 #### [facility] CLIA [id number] [address] CASE REPORT [facility] Comment on above: Order Comment: aDvid horton Type: BLOOD SPECIMEN Ordering Facility: [facility] Address: [address] [place] [address] Result Comment: Surg [facility] Pathology Report Case: [id number] Authorizing Provider: Kaylyn Ellis MD Collected: 07/06/2024 09:43 AM Ordering Location: [facility] Endoscopy Received: 07/06/2024 11:27 AM Pathologist: Jaleesa Valdivia MD Specimens: A) - Small Bowel, Duodenum, Biopsy, R/O Sprue and Giardia B) - Stomach, Biopsy, R/O H Pylori C) - Esophagogastric Junction, Biopsy, R/O Barretts Performed By: #### 5 8410-2 #### [facility] CLIA [id number] [address] DIAGNOSIS COMMENT Part C was reviewed with Dr. Nunn, who concurs. [facility] Comment on above: Order Comment: David horton Type: BLOOD SPECIMEN [facility]ing Facility: [facility] Address: [address] [place] [address] Performed By: #### 5 8410-2 #### [facility] CLIA [id number] [address] FINAL DIAGNOSIS [facility] Comment on above: Order Comment: David horton Type: BLOOD SPECIMEN [facility]ing Facility: [facility] Address: [address] [place] [address] Result Comment: A. D uodenum, biopsy: - [...] EDT Performed By: #### 5 8410-2 #### [facility] CLIA [id number] [address] FINAL PERFORMING LAB Normal [facility] Comment on above: Order Comment: Speci men Type: BLOOD SPECIMEN [facility]ing Facility: [facility] Address: [address] [place] [address] Result Comment: Diag nostic interpretation performed at: [facility], [address] [place] [address], [place] [address] CLIA# [id number] [employer] Specialist: Logan Villanueva MD Performed By: #### 5 8410-2 #### [facility] CLIA [id number] [address] GROSS DESCRIPTION Normal [facility] Comment on above: Order Comment: Speci men Type: BLOOD SPECIMEN Ordering Facility: [facility] Address: [address] [place] [address] Result Comment: A. S mall Bowel, Duodenum, [...] in one cassette. Gross examination performed at [facility], [address] [place] [address] July 06, 2024 4:20 PM Performed By: #### 5 8410-2 #### [facility] CLIA [id number] [address] Upper GI endoscopyon 025 Upper GI endoscopy [facility] Gastrointestinal Endoscopy Patient Name: Michelle Mitchell Procedure Date: 07/06/2024 9:28 AM Date of : 1980 Admit Type: Inpatient Age: 43 Room: ME ENDO B Gender: Female Note Status: Finalized Attending MD: Kaylyn Ellis MD, [id number] Procedure: Upper GI endoscopy Indications: Abdominal pain, Heartburn, Nausea Providers: Kaylyn Ellis MD Patient Profile: Refer to note in patient chart for documentation of history and physical. Referring Physician: Deepika Joy (Referring MD) Medicines: Monitored Anesthesia Care Complications: No immediate complications. Requesting Provider: Procedure: Pre-Anesthesia Assessment: - The risks and benefits of the procedure and the sedation options and risks were discussed with the patient. All questions were answered and informed consent was obtained. - Monitored anesthesia care under the supervision of a TIE HACKER was determined to be medically necessary for [...] clinical course. Procedure Code(s): --- Professional --- 80695, Esophagogastroduodenosco py, flexible, transoral; with biopsy, single or multiple CPT copyright 2020 [employer] [employer]. All rights reserved. The codes documented in this report are preliminary and upon state assessed properties director review may be revised to meet current compliance requirements. Attending Participation: I personally performed the entire procedure. Scope In: 9:42:49 AM Scope Out: 9:49:13 AM MD Kaylyn George MD 07/06/2024 9:59:31 AM This report has been signed electronically by Kaylyn Ellis MD Number of Addenda: 0 Note Initiated On: 07/06/2024 9:28 AM Estimated Blood Loss: Estimated blood loss: none. Normal [facility] A1AT SerPl-ncon 07-05-2024 Alpha 1 antitrypsin [Mass/Vol] 106 mg/dL Normal 90-200 [facility] Comment on above: Order Comment: David horton Type: BLOOD SPECIMEN [facility] Facility: [facility] Address: [address] [place] [address] Performed By: #### 5 8410-2 #### [facility] CLIA [id number] [address] AFP [facility] 07-05-2024 AFP [Mass/Vol] 5.23 ng/mL Normal <9.00 [facility] Comment on above: Order Comment: David horton Type: BLOOD SPECIMEN [facility]ing Facility: [facility] Address: [address] [place] [address] Result Comment: The Alpha-Fetoprotein test was performed using the Devora Zinwaveel DxI immunoenzymatic assay. Results obtained with different assay methods or kits cannot be used interchangeably. Performed By: #### 5 8410-2 #### [facility] CLIA [id number] [address] SANDRA BY IFA SCREENon 07-06-19 25 Nuclear Ab Ql (S) Negative Normal Negative [facility] Comment on above: Order Comment: David horton Type: BLOOD SPECIMEN Ordering Facility: [facility] Address: [address] [place], [place] [address] Result Comment: Anti -nuclear antibody test is used as an aid in diagnosis of systemic autoimmune diseases. Where positive and clinically warranted, follow-up using disease-specific testing is recommended. Low positive titers are not uncommon with advanced age, certain chronic infections, and malignancies among others. Test methodology: Indirect fluorescence immunoassay (IFA) using HEp-2 cells. Performed By: #### 5 8410-2 #### [facility] CLIA [id number] [address] [place] [facility] CBC W Auto Differential pane l (Bld)on 07-05-2024 Basophils (Bld) [#/Vol] 0.08 10*3/uL Normal <0.11 [facility] Comment on above: Order Comment: Speci men Type: BLOOD SPECIMEN [facility]ing Facility: [facility] Address: [address] [place] [address] Performed By: #### 5 8410-2 #### [facility] CLIA [id number] [address] [place] [facility] Basophils/100 WBC (Bld) 0.7 % Normal [facility] Comment on above: Order Comment: Speci men Type: BLOOD SPECIMEN [facility]ing Facility: [facility] Address: [address] [place] [address] Performed By: #### 5 8410-2 #### [facility] CLIA [id number] [address] Differential cell count method Nom (Bld) Auto Normal [facility] Comment on above: Order Comment: Speci men Type: BLOOD SPECIMEN Ordering Facility: [facility] Address: [address] [place] [address] Performed By: #### 5 8410-2 #### [facility] CLIA [id number] 1000 [place] [address] [place] Eosinophils (Bld) [#/Vol] 0.12 10*3/uL Normal <0.46 [facility] Comment on above: Order Comment: Speci men Type: BLOOD SPECIMEN Ordering Facility: [facility] Address: [address] [place] [address] Performed By: #### 5 8410-2 #### [facility] CLIA [id number] 1000 [place] [address] [place] Eosinophils/100 WBC (Bld) 1.0 % Normal [facility] Comment on above: Order Comment: Speci men Type: BLOOD SPECIMEN Ordering Facility: [facility] Address: [address] [place] [address] Performed By: #### 5 8410-2 #### [facility] CLIA [id number] 1000 [place] [address] [place] Erythrocyte distribution width (RBC) [Ratio] 15.0 % Normal 11.5-15.0 [facility] Comment on above: Order Comment: Speci men Type: BLOOD SPECIMEN [facility]ing Facility: [facility] Address: [address] [place] [address] Performed By: #### 5 8410-2 #### [facility] CLIA [id number] [address] [place] Hematocrit (Bld) [Volume fraction] 45.4 % Normal 36.0-46.0 [facility] Comment on above: Order Comment: Speci men Type: BLOOD SPECIMEN [facility]ing Facility: [facility] Address: [address] [place] [address] Performed By: #### 5 8410-2 #### [facility] CLIA [id number] [address] [place] Hemoglobin (Bld) [Mass/Vol] 14.2 g/dL Normal 11.5-15.5 [facility] Comment on above: Order Comment: Speci men Type: BLOOD SPECIMEN [facility]ing Facility: [facility] Address: [address] [place] [address] Performed By: #### 5 8410-2 #### [facility] CLIA [id number] [address] [place] Immature granulocytes (Bld) [#/Vol] 0.04 10*3/uL Normal <0.10 [facility] Comment on above: Order Comment: Speci men Type: BLOOD SPECIMEN [facility]ing Facility: [facility] Address: [address] [place] [address] Performed By: #### 5 8410-2 #### [facility] CLIA [id number] [address] Immature granulocytes/100 WBC (Bld) 0.3 % Normal [facility] Comment on above: Order Comment: Speci men Type: BLOOD SPECIMEN [facility]ing Facility: [facility] Address: [address] [place] [address] Performed By: #### 5 8410-2 #### [facility] CLIA [id number] [address] OF [facility] Lymphocytes (Bld) [#/Vol] 1.79 10*3/uL Normal 1.00-4.00 [facility] Comment on above: Order Comment: Speci men Type: BLOOD SPECIMEN [facility]ing Facility: [facility] Address: [address] [place] [address] Performed By: #### 5 8410-2 #### [facility] CLIA [id number] [address] Lymphocytes/100 WBC (Bld) 14.7 % Normal [facility] Comment on above: Order Comment: Speci men Type: BLOOD SPECIMEN [facility]ing Facility: [facility] Address: [address] [place] [address] Performed By: #### 5 8410-2 #### [facility] CLIA [id number] [address] [place] [facility] MCH (RBC) [Entitic mass] 31.7 pg Normal 26.0-34.0 [facility] Comment on above: Order Comment: Speci men Type: BLOOD SPECIMEN [facility]ing Facility: [facility] Address: [address] [place] [address] Performed By: #### 5 8410-2 #### [facility] CLIA [id number] [address] MCHC (RBC) [Mass/Vol] 31.3 g/dL Normal 30.5-36.0 [facility] Comment on above: Order Comment: Speci men Type: BLOOD SPECIMEN [facility]ing Facility: [facility] Address: [address] [place] [address] Performed By: #### 5 8410-2 #### [facility] CLIA [id number] [address] [place] [address] [place] MCV (RBC) [Entitic vol] 101.3 fL High 80.0-100.0 [facility] Comment on above: Order Comment: Speci men Type: BLOOD SPECIMEN [facility]ing Facility: [facility] Address: [address] [place] [address] Performed By: #### 5 8410-2 #### [facility] CLIA [id number] [address] [place] [address] [place] Monocytes (Bld) [#/Vol] 0.57 10*3/uL Normal <0.87 [facility] Comment on above: Order Comment: Speci men Type: BLOOD SPECIMEN Ordering Facility: [facility] Address: [address] [place] [address] Performed By: #### 5 8410-2 #### [facility] CLIA [id number] [address] [place] Monocytes/100 WBC (Bld) 4.7 % Normal [facility] Comment on above: Order Comment: Speci men Type: BLOOD SPECIMEN Ordering Facility: [facility] Address: [address] [place] [address] Performed By: #### 5 8410-2 #### [facility] CLIA [id number] [address] [place] Neutrophils (Bld) [#/Vol] 9.58 10*3/uL High 1.45-7.50 [facility] Comment on above: Order Comment: Speci men Type: BLOOD SPECIMEN Ordering Facility: [facility] Address: [address] [place] [address] Performed By: #### 5 8410-2 #### [facility] CLIA [id number] [address] [place] Neutrophils/100 WBC (Bld) 78.6 % Normal [facility] Comment on above: Order Comment: Speci men Type: BLOOD SPECIMEN Ordering Facility: [facility] Address: [address] [place] [address] Performed By: #### 5 8410-2 #### [facility] CLIA [id number] [address] [place] [address] [facility] [place] Nucleated RBC (Bld) [#/Vol] 10*3/uL Normal <0.01 [facility] Comment on above: Order Comment: Speci men Type: BLOOD SPECIMEN Ordering Facility: [facility] Address: [address] [place] [address] Performed By: #### 5 8410-2 #### [facility] CLIA [id number] [address] [place] [address] [place] Nucleated RBC/100 WBC (Bld) [Ratio] 0.0 /100 WBC Normal [facility] Comment on above: Order Comment: Speci men Type: BLOOD SPECIMEN Ordering Facility: [facility] Address: [address] [place] [address] Performed By: #### 5 8410-2 #### [facility] CLIA [id number] [address] [place] Platelet mean volume (Bld) [Entitic vol] 10.5 fL Normal 9.0-12.7 [facility] Comment on above: Order Comment: Speci men Type: BLOOD SPECIMEN Ordering Facility: [facility] Address: [address] [place] [address] Performed By: #### 5 8410-2 #### [facility] CLIA [id number] [address] [place] Platelets (Bld) [#/Vol] 278 10*3/uL Normal 150-400 [facility] Comment on above: Order Comment: Speci men Type: BLOOD SPECIMEN Ordering Facility: [facility] Address: [address] [place] [address] Performed By: #### 5 8410-2 #### [facility] CLIA [id number] [address] [place] [address] [place] RBC (Bld) [#/Vol] 4.48 10*6/uL Normal 3.90-5.20 [facility] Comment on above: Order Comment: Speci men Type: BLOOD SPECIMEN Ordering Facility: [facility] Address: [address] [place] [address] Performed By: #### 5 8410-2 #### [facility] CLIA [id number] [address] [place] [address] [place] WBC (Bld) [#/Vol] 12.18 10*3/uL High 3.70-11.00 [facility] Comment on above: Order Comment: David horton Type: BLOOD SPECIMEN Ordering Facility: [facility] Address: [address] [place] [address] Performed By: #### 5 8410-2 #### [facility] CLIA [id number] 1000 [place] [id number] [facility] [place] CELIAC SCREENon 07-05-2024 GLIAD DEAMIDATED IGA QUAL Negative Normal Negative, Test not Indicated [facility] Comment on above: Order Comment: David horton Type: BLOOD SPECIMENOrdering Facility: [facility] Address: [address] [place] [address] Result Comment: This is used as an aid in diagnosis of celiac disease. Clinical correlation is required. The following results were obtained with an Dely QUANTA Lite Gliadin IgA ION Gliadin. Gliadin IgA values obtained with different manufacturers' assay methods may not be used interchangeably. The magnitude of the reported IgA levels cannot be correlated to an endpoint titer. Performed By: #### L [id number] ####[facility] LABCLIA [id number] [place] [address] [place] Gliadin peptide IgA Qn (S) 1 Units Normal <20 [facility] Comment on above: Order Comment: David [facility] Type: BLOOD SPECIMENOrdering Facility: [facility] Address: [address] [place] [address] Performed By: #### L [id number] ####[facility] LABCLIA [id number] [place] [address] [facility] [place] INTERPRETATION No serological evide nce of celiac disease, however, if celiac disease is clinically suspected and patient is not on gluten-free diet, histological diagnosis may be considered. HLA testing may help with risk assessment. Normal [facility] Comment on above: Order Comment: David [facility] Type: BLOOD SPECIMENOrdering Facility: [facility] Address: [address] [place] [address] Performed By: #### L [id number] ####[facility] LABCLIA [id number] [place] [address] [place] TRANSGLUTAMINASE IGA ABS INTERPRETATION Negative Normal Negative [facility] Comment on above: Order Comment: Speci men Type: BLOOD SPECIMENOrdering Facility: [facility] Address: [address] [place] [address] Result Comment: The following results were obtained with [employer] R h-tTG IgA ION.???R h-tTG IgA values obtained with different manufacturers' assay methods may not be used interchangeably. The magnitude of the reported IgA levels cannot be corelated to an endpoint???concentration. This is used as an aid in diagnosis of celiac disease. Clinical correlation is required. Performed By: #### L [id number] ####[facility] LABCLIA [id number] [place] [address] [place] tTG IgA Qn (S) <2 Normal <4 [facility] Comment on above: Order Comment: Speci men Type: BLOOD SPECIMENOrdering Facility: [facility] Address: [address] [place] [address] Performed By: #### L [id number] ####[facility] LABCLIA [id number] [place] [address] [place] CMV IgM Qnon 07-05-2024 CMV IGM, QUAL Negative Normal Negative [facility] Comment on above: Order Comment: Speci men Type: BLOOD SPECIMENOrdering Facility: [facility] Address: [address] [place] [address] Result Comment: No s erological evidence of recent exposure to Cytomegalovirus. Performed By: #### 7 853-5, 7886-5 ####[facility] LABCLIA [id number] [place] [address] [place] CONSULTon 07-05-2024 CONSULT HNO ID: [id number] Author: SERGIO WHITE MD Service: Gastroenterology Author [...] and facial swelling. She was evaluated in [place] ER twice and discharged to home. She was advised to present to [place] ER by Dr. Wilkinson for admission. Her [...] suicidal ideations Ativan [Lorazepam] Vomiting Azithromycin Intolerance [place] Anaphylaxis [place] Anaphylaxis pickles Fish Anaphylaxis Levofloxacin In D5w [...] PERMANENT TRANSVENOUS PACEMAKER INSERTION 2006 ICD implant, [facility] ANESTHESIA TUBAL LIGATION/TRANSECTION APPENDECTOMY 05/05/2014 [...] bedtime., D (more content not included)... Normal [facility] Ceruloplasmin SerPl-mCncon 0 07-05-2024 Ceruloplasmin [Mass/Vol] 31 mg/dL Normal 16-45 [facility] Comment on above: Order Comment: Speci men Type: BLOOD SPECIMEN Ordering Facility: [facility] Address: [address] [place] [address] Performed By: #### 5 8410-2 #### [facility] CLIA [id number] [address] [place] [address] [facility] Comprehensive metabolic 2000 panelon 07-05-2024 Albumin [Mass/Vol] 4.0 g/dL Normal 3.9-4.9 [facility] Comment on above: Order Comment: Speci men Type: BLOOD SPECIMENOrdering Facility: [facility] Address: [address] [place] [address] Performed By: #### 2 4323-8, 50020-0, 80450-1 ####[facility] [id number] [address] ALP [Catalytic activity/Vol] 132 U/L High 34-123 [facility] Comment on above: Order Comment: Speci men Type: BLOOD SPECIMENOrdering Facility: [facility] Address: [address] [place] [address] Performed By: #### 2 4323-8, 66553-2, 73905-3 ####[facility] [id number] [address] ALT [Catalytic activity/Vol] 39 U/L High 7-38 [facility] Comment on above: Order Comment: Speci men Type: BLOOD SPECIMENOrdering Facility: [facility] Address: [address] [place], [place] [address] Performed By: #### 2 4323-8, 11778-2, 45006-5 ####[facility]ORYCLIA [id number] [place] [address] [place] Anion gap [Moles/Vol] 10 mmol/L Normal 8-15 [facility] Comment on above: Order Comment: Speci men Type: BLOOD SPECIMENOrdering Facility: [facility] Address: [facility] [place] [address] Performed By: #### 2 4323-8, 43365-4, 49525-4 ####[facility]ORATORYCLIA [id number] [place] [address] [place] AST [Catalytic activity/Vol] 30 U/L Normal 13-35 [facility] Comment on above: Order Comment: Speci men Type: BLOOD SPECIMENOrdering Facility: [facility] Address: [facility] [place] [address] Performed By: #### 2 4323-8, 93948-0, 81785-2 ####[facility]ORATORYCLIA [id number] [place] [address] [place] Bilirubin [Mass/Vol] 1.0 mg/dL Normal 0.2-1.3 [facility] Comment on above: Order Comment: Speci men Type: BLOOD SPECIMENOrdering Facility: [facility] Address: [facility] [place] [address] Performed By: #### 2 4323-8, 73126-5, 88265-2 ####[facility]ORATORYCLIA [id number] [place] [address] [place] Calcium [Mass/Vol] 9.1 mg/dL Normal 8.5-10.2 [facility] Comment on above: Order Comment: Speci men Type: BLOOD SPECIMENOrdering Facility: [facility] Address: [address] [place] [address] Performed By: #### 2 4323-8, 57754-5, 71776-0 ####[facility] LABORATORYCLIA [id number] [place] [address] [place] Chloride [Moles/Vol] 104 mmol/L Normal 98-107 [facility] Comment on above: Order Comment: Speci men Type: BLOOD SPECIMENOrdering Facility: [facility] Address: [address] [place] [address] Performed By: #### 2 4323-8, 12689-6, 69253-8 ####[facility]ORATORYCLIA [id number] [address] CO2 [Moles/Vol] 27 mmol/L Normal 22-30 [facility] Comment on above: Order Comment: Speci men Type: BLOOD SPECIMENOrdering Facility: [facility] Address: [address] [place] [address] Performed By: #### 2 4323-8, 48085-6, 82717-3 ####[facility]ATORYCLIA [id number] [address] [facility] Creatinine [Mass/Vol] 0.96 mg/dL Normal 0.58-0.96 [facility] Comment on above: Order Comment: Speci men Type: BLOOD SPECIMENOrdering Facility: [facility] Address: [address] [place] [address] Performed By: #### 2 4323-8, 24411-9, 21353-2 ####[facility]ORATORYCLIA [id number] [address] Creatinine and Glomerular filtration rate.predicted panel (S/P/Bld) 75 mL/min/1.73m??? Normal >=60 [facility] Comment on above: Order Comment: Speci men Type: BLOOD SPECIMENOrdering Facility: [facility] Address: [address] [place] [address] Result Comment: Sandie mated Glomerular Filtration Rate [...] actual GFR. Performed By: #### 2 4323-8, 88197-9, 53134-4 ####[facility] LABORATORYCLIA [id number] [place] [address] [place] Glucose [Mass/Vol] 89 mg/dL Normal 74-99 [facility] Comment on above: Order Comment: David horton Type: BLOOD SPECIMENOrdering Facility: [facility] Address: [address] [place] [address] Result Comment: The [place] Diabetes Association (ADA) provides guidance for cutoff [...] Standards of Medical Care in Diabetes 2016, [place] Diabetes Association. Diabetes Care. 2016.39(Suppl 1). Performed By: #### 2 4323-8, 54973-6, 42032-8 ####[facility]ORATORYCLIA [id number] [place] [id number] [place] Potassium [Moles/Vol] 4.1 mmol/L Normal 3.7-5.1 [facility] Comment on above: Order Comment: David horton Type: BLOOD SPECIMENOrdering Facility: [facility] Address: [address] [place] [address] Performed By: #### 2 4323-8, 08997-4, 13131-0 ####[facility]ORATORYCLIA [id number] [place] [address] [place] Protein [Mass/Vol] 6.9 g/dL Normal 6.3-8.0 [facility] Comment on above: Order Comment: David horton Type: BLOOD SPECIMENOrdering Facility: [facility] Address: [address] [place], [place] [address] Performed By: #### 2 4323-8, 59938-0, 93814-2 ####[facility]ORATORYCLIA [id number] [place] [id number] [place] Sodium [Moles/Vol] 141 mmol/L Normal 136-144 [facility] Comment on above: Order Comment: David horton Type: BLOOD SPECIMENOrdering Facility: [facility] Address: [address] [place], [place] [address] Performed By: #### 2 4323-8, 33493-7, 05788-1 ####[facility] LABORATORYCLIA [id number] [place] [address] [place] Urea nitrogen [Mass/Vol] 12 mg/dL Normal 7-21 [facility] Comment on above: Order Comment: David horton Type: BLOOD SPECIMENOrdering Facility: [facility] Address: [address] [place] [address] Performed By: #### 2 4323-8, 85857-9, 90135-1 ####[facility]ORATORYCLIA [id number] [address] EBV capsid IgM Qn (S)on 06-13 EBV VCA IGM, QUAL Negative Normal Negative [facility] Comment on above: Order Comment: David horton Type: BLOOD SPECIMENOrdering Facility: [facility] Address: [address] [place] [address] Result Comment: No s erological evidence of recent EBV infection. Performed By: #### 7 853-5, 7886-5 ####[facility] LABCLIA [id number] [place] [id number] [place] HISTORY PHYSICALon HISTORY PHYSICAL HNO ID: [id number] Author: DEX WILKINSON MD Service: Family Practice [...] couple weeks, she has been seen at [facility] twice over the last few days [...] TRANSVENOUS PACEMAKER INSERTION Apr. 2006 ICD implant, [facility] ANESTHESIA TUBAL LIGATION/TRANSECTION APPENDECTOMY 05/05/2014 [...] suicidal ideations Ativan [Lorazepam] Vomiting Azithromycin Intolerance [place] Anaphylaxis [place] Anaphylaxis pickles Fish Anaphylaxis Levofloxacin In D5w Swelling, Itching IV si (more content not included)... Normal [facility] HSV PCR, MISCELLANEOUS SPECI MEN TYPESon 07-05-2024 HERPES SIMPLEX VIRUS SOURCE Plasma Normal [facility] Comment on above: Order Comment: Speci [facility] Type: BLOOD SPECIMEN [facility] Facility: [facility] Address: [address] [place] [address] Performed By: #### 5 8410-2 #### [facility] CLIA [id number] [address] HSV 1 SUBTYPE BY PCR Not detected Normal [facility] Comment on above: Order [facility]: [facility]: BLOOD SPECIMEN [facility] Address: [address] [place] [address] Performed By: #### 5 8410-2 #### [facility] CLIA [id number] [address] HSV 2 SUBTYPE BY PCR Not detected Normal [facility] Comment on above: Order Comment: [facility] Type: BLOOD SPECIMEN [facility] Address: [address] [place] [address] Result Comment: INTE RPRETIVE INFORMATION: HSV-1 and HSV-2 Subtype by PCR A negative result does not rule out the presence of PCR inhibitors in the patient specimen or test-specific nucleic acid in concentrations below the level of detection by this test. This test was developed and its performance characteristics determined by [facility]. It has not been cleared or approved by the [place] Food and Drug Administration. This test was performed in a CLIA certified laboratory and is intended for clinical purposes. Performed By: [facility] [address] [place] [address] [employer] Specialist: José Burns MD, PhD [place] Number: [id number] Performed By: #### 5 8410-2 #### [facility] CLIA [id number] [address] [place] IgA SerPl-mCncon 07-05-2024 IgA [Mass/Vol] 97 mg/dL Normal 70-400 [facility] Comment on above: Order Comment: David [facility] Type: BLOOD SPECIMEN [facility] Address: [address] [place] [address] Performed By: #### 5 8410-2 #### [facility] CLIA [id number] [address] [place] [address] [place] Iron and Iron binding capaci ty panelon 07-05-2024 Iron [Mass/Vol] 77 ug/dL Normal 41-186 [facility] Comment on above: Order Comment: Speci men Type: BLOOD SPECIMENOrdering Facility: [facility] Address: [address] [place] [address] Performed By: #### 2 4323-8, 21995-0, 28136-1 ####[facility]ORATORYCLIA [id number] [place] [address] [place] Iron binding capacity [Mass/Vol] 411 ug/dL High 232-386 [facility] Comment on above: Order Comment: Speci men Type: BLOOD SPECIMENOrdering Facility: [facility] Address: [address] [place] [address] Performed By: #### 2 4323-8, 88528-9, 10105-8 ####[facility]ORATORYCLIA [id number] [address] STATES [facility] Iron/TIBC [Molar ratio] 18.7 % Normal 15.0-57.0 [facility] Comment on above: Order Comment: Speci men Type: BLOOD SPECIMENOrdering Facility: [facility] Address: [address] [place] [address] Performed By: #### 2 4323-8, 38729-9, 66126-1 ####[facility]ORATORYCLIA [id number] [place] [id number] [place] OF [facility] Lipid 1996 panelon Cholesterol [Mass/Vol] 172 mg/dL Normal <200 [facility] Comment on above: Order Comment: Speci men Type: BLOOD SPECIMENOrdering Facility: [facility] Address: [address] [place] [address] Result Comment: <200 mg/dL, Desirable 200-239 mg/dL, Borderline high >239 mg/dL, High Performed By: #### 2 4323-8, 15352-4, 74280-7 ####[facility]ORATORYCLIA [id number] [place] [id number] [place] Cholesterol in HDL [Mass/Vol] 36 mg/dL Low >39 [facility] Comment on above: Order Comment: Speci men Type: BLOOD SPECIMENOrdering Facility: [facility] Address: [address] [place] [address] Result Comment: 40-5 9 mg/dL, Acceptable >59 mg/dL, High: Negative risk factor for coronary heart disease <40 mg/dL, Low: Positive risk factor for coronary heart disease Performed By: #### 2 4323-8, 86783-3, 75662-4 ####[facility]ORATORYCLIA [id number] [address] [facility] Cholesterol in LDL [Mass/Vol] 108 mg/dL High <100 [facility] Comment on above: Order Comment: Speci sol Type: BLOOD SPECIMENOrdering Facility: [facility] Address: [address] [place] [address] Result Comment: <100 mg/dL, Optimal 100-129 mg/dL, Near optimal/above optimal 130-159 mg/dL, Borderline high 160-189 mg/dL, High >189 mg/dL, Very high Secondary prevention optimal LDL Cholesterol levels are recommended to be <70 mg/dL LDL cholesterol is calculated using the Stoddard-NIH equation. Performed By: #### 2 4323-8, 68710-6, 04097-0 ####[facility]ORATORYCLIA [id number] [address] [facility] Cholesterol in LDL/Cholesterol in HDL [Mass ratio] 3.00 {ratio} High <2.54 [facility] Comment on above: Order Comment: Speci sol Type: BLOOD SPECIMENOrdering Facility: [facility] Address: [address] [place] [address] Result Comment: Refe rence: 1. National Cholesterol Education Program ATP III Guideline At-A-Glance Quick Desk Reference: National Heart, Lung, and Blood [place]. National Institutes of Health. 2001: NIH Publication No. 01-3305. 2. An International Atherosclerosis Society position paper: global recommendations for the management of dyslipidemia: executive summary, Atherosclerosis. 2014: 232(2):410-413. Performed By: #### 2 4323-8, 00290-9, 20745-9 ####[facility]ORATORYCLIA [id number] [address] Cholesterol in VLDL [Mass/Vol] 26 mg/dL Normal <30 [facility] Comment on above: Order Comment: Speci men Type: BLOOD SPECIMENOrdering Facility: [facility] Address: [address] [place] [address] Performed By: #### 2 4323-8, 96442-5, 11887-4 ####[facility]ORATORYCLIA [id number] [address] Cholesterol non HDL [Mass/Vol] 136 mg/dL High <130 [facility] Comment on above: Order Comment: Speci men Type: BLOOD SPECIMENOrdering Facility: [facility] Address: [address] [place] [address] Result Comment: <130 mg/dL, Optimal 130-159 mg/dL, Near optimal/above optimal 160-189 mg/dL, Borderline high 190-219 mg/dL, High >219 mg/dL, Very high Secondary prevention optimal non HDL Cholesterol levels are recommended to be <100 mg/dL Performed By: #### 2 4323-8, 79193-3, 77799-3 ####[facility]ORATORYCLIA [id number] [address] Cholesterol.total/Choles terol in HDL [Mass ratio] 4.78 {ratio} Normal <5.10 [facility] Comment on above: Order Comment: Speci men Type: BLOOD SPECIMENOrdering Facility: [facility] Address: [address] [place] [address] Performed By: #### 2 4323-8, 02252-7, 18292-1 ####[facility] LABORATORYCLIA [id number] [place] [id number] [facility] FASTING TIME Normal [facility] Comment on above: Order Comment: Speci men Type: BLOOD SPECIMENOrdering Facility: [facility] Address: [address] [place] [address] Result Comment: Unkn own Performed By: #### 2 4323-8, 27080-1, 68789-8 ####[facility]ORATORYCLIA [id number] [address] [place] Triglyceride [Mass/Vol] 157 mg/dL High <150 M [facility] Comment on above: Order Comment: David horton Type: BLOOD SPECIMENOrdering Facility: [facility] Address: [address] [place] [address] Result Comment: <150 mg/dL, Normal 150-199 mg/dL, Borderline high 200-499 mg/dL, High >499 mg/dL, Very high Performed By: #### 2 4323-8, 62846-4, 68412-9 ####[facility]ORATORYCLIA [id number] [address] [place] Mitochondria Ab IF Ql (S)on 07-05-2024 Mitochondria M2 Ab IA Qn (S) 4.4 Units Normal <=20.0 [facility] Comment on above: Order Comment: David [facility] Type: BLOOD SPECIMENOrdering Facility: [facility] Address: [address] [place] [address] Performed By: #### 1 4252-1, 61978-0 ####[facility] LABCLIA [id number] [address] [place] Mitochondria M2 Ab Ql (S) Negative Normal Negative [facility] Comment on above: Order Comment: David horton Type: BLOOD SPECIMENOrdering Facility: [facility] Address: [address] [place] [address] Result Comment: Anti -mitochondrial antibody test is used as an aid in diagnosis of primary biliary cholangitis. Clinical correlation is required. Performed By: #### 1 4252-1, 62362-8 ####[facility] LABCLIA [id number] [address] [place] Smooth muscle Ab Ql (S)on ACTIN SMOOTH MUSCLE IGG QUALITATIVE Negative Normal Negative [facility] Comment on above: Order Comment: David [facility] Type: BLOOD SPECIMENOrdering Facility: [facility] Address: [address] [place] [address] Performed By: #### 1 4252-1, 94715-3 ####[facility] LABCLIA [id number] [place] [address] [place] ACTIN SMOOTH MUSCLE IGG QUANTITATIVE 11 Units Normal <20 [facility] Comment on above: Order Comment: Speci men Type: BLOOD SPECIMENOrdering Facility: [facility] Address: [address] [place] [address] Performed By: #### 1 4252-1, 74367-8 ####[facility] LABCLIA [id number] [place] [address] [place] ALLIED HEALTHon 07-04-2024 ALLIED HEALTH HNO ID: [id number] Author: SAMSON CRUM CT Service: Radiology Author [...] PATIENT PRESENTS WITH AN IMPLANTABLE OR ATTACHED AIR VALVE MECHANIC: N/A RADIOLOGY DEPARTMENT: Ultrasound PERIPHERAL IV DATA: Not applicable SIGNED BY: MIRACLE Black July 04, 2024 10:25 PM Normal [facility] HEALTH HNO ID: [id number] Author: KEVEN CORNELIUS CT Service: Radiology Author [...] PATIENT PRESENTS WITH AN IMPLANTABLE OR ATTACHED AIR VALVE MECHANIC: No ALLERGIES: Reviewed and unchanged CONTRAST ALLERGY: [...] PERIPHERAL IV DATA: Inpatient - refer to [facility] documentation RADIOLOGY DEPARTMENT: CT; Exam(s) Completed: Chest Abdomen Pelvis SIGNATURE: MIRACLE Brody PATIENT NAME: Michelle Mitchell DATE: July 04, 2024 TIME: 5:50 PM Normal [facility] BETA HCG, QUANTITATIVE FOR E Don 07-04-2024 HCG.beta subunit Qn 0.6 m[IU]/mL Normal <5.0 [facility] Comment on above: Order Comment: Speci men Type: BLOOD SPECIMENOrdering Facility: [facility] Address: [address] [place], [place] [address] Result Comment: Nega tive Performed By: #### H CGED, 3040-3, 16514-3 ####[facility]ORATORYCLIA [id number] [place] [address] [place] Bilirub SerPl-mCncon 025 Bilirubin [Mass/Vol] 0.6 mg/dL Normal 0.2-1.3 [facility] Comment on above: Order Comment: Speci men Type: BLOOD SPECIMENOrdering Facility: [facility] Address: [address] [place] [address] Performed By: #### 1 975-2, 82335-5, 94518-3, 5195-3 ####[facility] LABCLIA [id number] [place] [address] [place] C. trachomatis+N. gonorrhoea e DNA BIMAL+probe Ql (Unsp spec)on 07-04-2024 C. trachomatis rRNA BIMAL+probe Ql (Unsp spec) Not detected Normal Not detected [facility] Comment on above: Order Comment: Speci men Type: BLOOD SPECIMEN [facility] Address: [address] [place] [address] Performed By: #### 5 8410-2 #### [facility] CLIA [id number] [address] [place] [address] [place] N. gonorrhoeae rRNA BIMAL+probe Ql (Unsp spec) Not detected Normal Not detected [facility] Comment on above: Order Comment: Speci men Type: BLOOD SPECIMEN [facility] Facility: [facility] Address: [address] [place] [address] Performed By: #### 5 8410-2 #### [facility] CLIA [id number] [address] [place] CBC W Auto Differential pane l (Bld)on 07-04-2024 Basophils (Bld) [#/Vol] 0.05 10*3/uL Normal <0.11 [facility] Comment on above: Order Comment: Speci men Type: BLOOD SPECIMEN [facility] Facility: [facility] Address: [address] [place] [address] Performed By: #### 5 8410-2 #### [facility] CLIA [id number] [address] [place] [address] [place] Basophils/100 WBC (Bld) 0.3 % Normal [facility] Comment on above: Order Comment: Speci men Type: BLOOD SPECIMEN [facility]ing Facility: [facility] Address: [address] [place] [address] Performed By: #### 5 8410-2 #### [facility] CLIA [id number] [address] [place] [address] [place] Differential cell count method Nom (Bld) Auto Normal [facility] Comment on above: Order Comment: Speci men Type: BLOOD SPECIMEN [facility] Facility: [facility] Address: [address] [place] [address] Performed By: #### 5 8410-2 #### [facility] CLIA [id number] [address] [place] [address] [place] Eosinophils (Bld) [#/Vol] 0.12 10*3/uL Normal <0.46 [facility] Comment on above: Order Comment: Speci men Type: BLOOD SPECIMEN [facility]ing Facility: [facility] Address: [address] [place] [address] Performed By: #### 5 8410-2 #### [facility] CLIA [id number] [address] [place] Eosinophils/100 WBC (Bld) 0.8 % [facility] Comment on above: Order Comment: Speci men Type: BLOOD SPECIMEN [facility]ing Facility: [facility] Address: [address] [place] [address] Performed By: #### 5 8410-2 #### [facility] CLIA [id number] [address] [place] [address] [place] Erythrocyte distribution width (RBC) [Ratio] 14.7 % Normal 11.5-15.0 [facility] Comment on above: Order Comment: Speci men Type: BLOOD SPECIMEN [facility]ing Facility: [facility] Address: [address] [place] [address] Performed By: #### 5 8410-2 #### [facility] CLIA [id number] [address] [place] [address] [place] Hematocrit (Bld) [Volume fraction] 43.5 % Normal 36.0-46.0 [facility] Comment on above: Order Comment: Speci men Type: BLOOD SPECIMEN [facility]ing Facility: [facility] Address: [address] [place] [address] Performed By: #### 5 8410-2 #### [facility] CLIA [id number] [address] [place] Hemoglobin (Bld) [Mass/Vol] 14.0 g/dL Normal 11.5-15.5 [facility] Comment on above: Order Comment: Speci men Type: BLOOD SPECIMEN [facility]ing Facility: [facility] Address: [address] [place] [address] Performed By: #### 5 8410-2 #### [facility] CLIA [id number] [address] [place] [address] [place] Immature granulocytes (Bld) [#/Vol] 0.08 10*3/uL Normal <0.10 [facility] Comment on above: Order Comment: Speci men Type: BLOOD SPECIMEN [facility]ing Facility: [facility] Address: [address] [place] [address] Performed By: #### 5 8410-2 #### [facility] CLIA [id number] [address] [place] Immature granulocytes/100 WBC (Bld) 0.5 % Normal [facility] Comment on above: Order Comment: Speci men Type: BLOOD SPECIMEN [facility]ing Facility: [facility] Address: [address] [place] [address] Performed By: #### 5 8410-2 #### [facility] CLIA [id number] [address] [place] [address] [place] Lymphocytes (Bld) [#/Vol] 1.38 10*3/uL Normal 1.00-4.00 [facility] Comment on above: Order Comment: Speci men Type: BLOOD SPECIMEN [facility]ing Facility: [facility] Address: [address] [place] [address] Performed By: #### 5 8410-2 #### [facility] CLIA [id number] [address] [place] Lymphocytes/100 WBC (Bld) 9.4 % Normal [facility] Comment on above: Order Comment: Speci men Type: BLOOD SPECIMEN [facility]ing Facility: [facility] Address: [address] [place] [address] Performed By: #### 5 8410-2 #### [facility] CLIA [id number] [address] MCH (RBC) [Entitic mass] 31.7 pg Normal 26.0-34.0 [facility] Comment on above: Order Comment: Speci men Type: BLOOD SPECIMEN Ordering Facility: [facility] Address: [address] [place] [address] Performed By: #### 5 8410-2 #### [facility] CLIA [id number] [address] MCHC (RBC) [Mass/Vol] 32.2 g/dL Normal 30.5-36.0 [facility] Comment on above: Order Comment: Speci men Type: BLOOD SPECIMEN Ordering Facility: [facility] Address: [address] [place] [address] Performed By: #### 5 8410-2 #### [facility] CLIA [id number] [address] MCV (RBC) [Entitic vol] 98.6 fL Normal 80.0-100.0 [facility] Comment on above: Order Comment: Speci men Type: BLOOD SPECIMEN Ordering Facility: [facility] Address: [address] [place] [address] Performed By: #### 5 8410-2 #### [facility] LABORATORY CLIA [id number] [address] Monocytes (Bld) [#/Vol] 0.61 10*3/uL Normal <0.87 [facility] Comment on above: Order Comment: Speci men Type: BLOOD SPECIMEN Ordering Facility: [facility] Address: [address] [place] [address] Performed By: #### 5 8410-2 #### [facility] CLIA [id number] [address] Monocytes/100 WBC (Bld) 4.1 % Normal [facility] Comment on above: Order Comment: Speci men Type: BLOOD SPECIMEN Ordering Facility: [facility] Address: [address] [place] [address] Performed By: #### 5 8410-2 #### [facility] CLIA [id number] [address] [place] Neutrophils (Bld) [#/Vol] 12.51 10*3/uL High 1.45-7.50 [facility] Comment on above: Order Comment: Speci men Type: BLOOD SPECIMEN Ordering Facility: [facility] Address: [address] [place] [address] Performed By: #### 5 8410-2 #### [facility] CLIA [id number] [address] Neutrophils/100 WBC (Bld) 84.9 % Normal [facility] Comment on above: Order Comment: Speci men Type: BLOOD SPECIMEN Ordering Facility: [facility] Address: [address] [place] [address] Performed By: #### 5 8410-2 #### [facility] CLIA [id number] [address] Nucleated RBC (Bld) [#/Vol] 10*3/uL Normal <0.01 [facility] Comment on above: Order Comment: Speci men Type: BLOOD SPECIMEN Ordering Facility: [facility] Address: [address] [place] [address] Performed By: #### 5 8410-2 #### [facility] CLIA [id number] [address] Nucleated RBC/100 WBC (Bld) [Ratio] 0.0 /100 WBC Normal [facility] Comment on above: Order Comment: Speci men Type: BLOOD SPECIMEN Ordering Facility: [facility] Address: [address] [place] [address] Performed By: #### 5 8410-2 #### [facility] CLIA [id number] [address] [place] Platelet mean volume (Bld) [Entitic vol] 10.4 fL Normal 9.0-12.7 [facility] Comment on above: Order Comment: Speci men Type: BLOOD SPECIMEN Ordering Facility: [facility] Address: [address] [place] [address] Performed By: #### 5 8410-2 #### [facility] CLIA [id number] [address] [place] Platelets (Bld) [#/Vol] 251 10*3/uL Normal 150-400 [facility] Comment on above: Order Comment: Speci men Type: BLOOD SPECIMEN Ordering Facility: [facility] Address: [address] [place] [address] Performed By: #### 5 8410-2 #### [facility] CLIA [id number] [address] [place] [address] [place] RBC (Bld) [#/Vol] 4.41 10*6/uL Normal 3.90-5.20 [facility] Comment on above: Order Comment: Speci men Type: BLOOD SPECIMEN Ordering Facility: [facility] Address: [address] [place] [address] Performed By: #### 5 8410-2 #### [facility] CLIA [id number] [address] [place] WBC (Bld) [#/Vol] 14.75 10*3/uL High 3.70-11.00 [facility] Comment on above: Order Comment: Speci men Type: BLOOD SPECIMEN Ordering Facility: [facility] Address: [address] [place] [address] Performed By: #### 5 8410-2 #### [facility] CLIA [id number] [address] [place] ABD/PEL W IVCONon 025 CT ABD/PEL W IVCON * * *Final Report* * * DATE OF EXAM: Jul 04 2024 6:04PM [facility] 0530 - CT ABD/PEL W IVCON / [...] previous. Ascites, most prominent in the pelvis Hydrogenation Operator: KIM Transcribe Date/Time: Jul 04 2024 7:04P Dictated by : MICHELLE MUÑOZ MD This examination was interpreted and the report reviewed and electronically signed by: MICHELLE MUÑOZ MD on Jul 04 2024 7:13PM EST [id number] Normal [facility] CTA CHEST (NON GATED) W IVCO N PEon 07-04-2024 CTA CHEST (NON GATED) W IVCON PE * * *Final Report* * * DATE OF EXAM: Jul 04 2024 6:04PM [facility] 0564 - CTA CHEST (NON GATED) W [...] suggesting congestive heart failure or fluid overload. Hydrogenation Operator: KIM Transcribe Date/Time: Jul 04 2024 6:47P Dictated by : MICHELLE MUÑOZ MD This examination was interpreted and the report reviewed and electronically signed by: MICHELLE MUÑOZ MD on Jul 04 2024 7:02PM EST [id number] Normal [facility] Comprehensive metabolic 2000 panelon 07-04-2024 Albumin [Mass/Vol] 3.9 g/dL Normal 3.9-4.9 [facility] Comment on above: Order Comment: Speci men Type: BLOOD SPECIMENOrdering Facility: [facility] Address: [address] [place] [address] Performed By: #### H CGED, 3040-3, 67686-4 ####[facility] [id number] [place] [address] [place] ALP [Catalytic activity/Vol] 122 U/L Normal 34-123 [facility] Comment on above: Order Comment: Speci men Type: BLOOD SPECIMENOrdering Facility: [facility] Address: [address] [place] [address] Performed By: #### H CGED, 3040-3, 65952-2 ####[facility]CLIA [id number] [place] [address] [place] ALT [Catalytic activity/Vol] 40 U/L High 7-38 [facility] Comment on above: Order Comment: Speci men Type: BLOOD SPECIMENOrdering Facility: [facility] Address: [address] [place] [address] Performed By: #### H CGED, 3040-3, 56379-3 ####[facility]ORYCLIA [id number] [place] [id number] [place] Anion gap [Moles/Vol] 11 mmol/L Normal 8-15 [facility] Comment on above: Order Comment: Speci men Type: BLOOD SPECIMENOrdering Facility: [facility] Address: [address] [place] [address] Performed By: #### H CGED, 3040-3, 39900-9 ####[facility]ORYCLIA [id number] [place] [address] [place] AST [Catalytic activity/Vol] 40 U/L High 13-35 [facility] Comment on above: Order Comment: Speci men Type: BLOOD SPECIMENOrdering Facility: [facility] Address: [address] [place] [address] [place] [address] Performed By: #### H KALED, 0-3, 60832-1 ####[facility]IA [id number] [place] [address] [place] Bilirubin [Mass/Vol] 0.7 mg/dL Normal 0.2-1.3 [facility] Comment on above: Order Comment: Speci men Type: BLOOD SPECIMENOrdering Facility: [facility] Address: [address] [place] [address] Performed By: #### H CGED, 0-3, 26050-4 ####[facility] [id number] [place] [address] [place] Calcium [Mass/Vol] 8.8 mg/dL Normal 8.5-10.2 [facility] Comment on above: Order Comment: Speci men Type: BLOOD SPECIMENOrdering Facility: [facility] Address: [address] [place] [address] Performed By: #### H CGED, 0-3, 91023-3 ####[facility]ORYCLIA [id number] [place] [address] [place] Chloride [Moles/Vol] 106 mmol/L Normal 98-107 [facility] Comment on above: Order Comment: Speci men Type: BLOOD SPECIMENOrdering Facility: [facility] Address: [address] [place] [address] Performed By: #### H CGED, 3040-3, 08737-4 ####[facility]IA [id number] [place] [address] [place] CO2 [Moles/Vol] 21 mmol/L Low 22-30 [facility] Comment on above: Order Comment: Speci men Type: BLOOD SPECIMENOrdering Facility: [facility] Address: [facility] [place] [address] Performed By: #### H CGED, 3040-3, 86126-0 ####[facility]ORYCLIA [id number] [place] [address] [place] [facility] Creatinine [Mass/Vol] 0.82 mg/dL Normal 0.58-0.96 [facility] Comment on above: Order Comment: David horton Type: BLOOD SPECIMENOrdering Facility: [facility] Address: [address] [place] [address] Performed By: #### H CGED, 0-3, 99228-2 ####[facility]ORYCLIA [id number] [place] [address] [facility] Creatinine and Glomerular filtration rate.predicted panel (S/P/Bld) 91 mL/min/1.73m??? Normal >=60 [facility] Comment on above: Order Comment: David horton Type: BLOOD SPECIMENOrdering Facility: [facility] Address: [address] [place] [address] Result Comment: Sandie mated Glomerular Filtration Rate [...] GFR. Performed By: #### H CGED, 0-3, 22301-3 ####[facility]IA [id number] [place] [id number] [place] [facility] Glucose [Mass/Vol] 78 mg/dL Normal 74-99 [facility] Comment on above: Order Comment: David horton Type: BLOOD SPECIMENOrdering Facility: [facility] Address: [address] [place] [address] Result Comment: The [place] Diabetes [employer] (ADA) provides guidance for cutoff [...] Standards of Medical Care in Diabetes 2016, [place] [employer]. Diabetes Care. 2016.39(Suppl 1). Performed By: #### H CGED, 3040-3, 91225-6 ####[facility]ORY[facility]IA [id number] [place] [address] [place] Potassium [Moles/Vol] 4.4 mmol/L Normal 3.7-5.1 [facility] Comment on above: Order Comment: Speci men Type: BLOOD SPECIMENOrdering Facility: [facility] Address: [address] [place] [address] Performed By: #### H CGED, 0-3, 49986-2 ####[facility]ORYCLIA [id number] [place] [address] [place] Protein [Mass/Vol] 6.8 g/dL Normal 6.3-8.0 [facility] Comment on above: Order Comment: Kianai men Type: BLOOD SPECIMENOrdering Facility: [facility] Address: [address] [place] [address] Performed By: #### H CGED, 0-3, 42394-0 ####[facility]CLIA [id number] [address] [place] Sodium [Moles/Vol] 138 mmol/L Normal 136-144 [facility] Comment on above: Order Comment: Kianai men Type: BLOOD SPECIMENOrdering Facility: [facility] Address: [address] [place] [address] Performed By: #### H CGED, 3040-3, 17519-3 ####[facility]ORYCLIA [id number] [place] [address] [place] Urea nitrogen [Mass/Vol] 16 mg/dL Normal 7-21 [facility] Comment on above: Order Comment: Kianai men Type: BLOOD SPECIMENOrdering Facility: [facility] Address: [address] [place] [address] Performed By: #### H CGED, 3040-3, 70758-6 ####[facility]ORYCLIA [id number] [place] [address] [facility] ED NOTEon 07-04-2024 ED NOTE HNO ID: [id number] Author: JOSIE RODAS RN Service: Nursing Author Type: Registered Nurse Type: ED Notes Filed: 07/04/2024 21:35 Note Text: Pt is tearful at times Normal [facility] ED NOTE HNO ID: [id number] Author: JOSIE RODAS RN Service: Nursing Author Type: Registered Nurse Type: ED Notes Filed: 07/04/2024 21:34 Note Text: Pt has completed the ultrasound she has ambulated to the bathroom gait is steady pt states she still has abd pain and feels bloated Normal [facility] ED NOTE HNO ID: [id number] Author: JOSIE RODAS RN Service: Nursing Author Type: Registered Nurse Type: ED Notes Filed: 07/04/2024 21:16 Note Text: Pt has tolerated the ultrasound with mild distress Normal [facility] ED NOTE HNO ID: [id number] Author: JOSIE RODAS RN Service: Nursing Author Type: Registered Nurse Type: ED Notes Filed: 07/04/2024 20:01 Note Text: Pelvic exam per MARCIO Cueva pt tolerated fair Sample was sent Normal [facility] ED NOTE HNO ID: [id number] Author: JOSIE RODAS RN Service: Nursing Author Type: Registered Nurse Type: ED Notes Filed: 07/04/2024 19:47 Note Text: PA is bedside Normal [facility] ED NOTE HNO ID: [id number] Author: JOSIE RODAS RN Service: Nursing Author Type: Registered Nurse Type: ED Notes Filed: 07/04/2024 19:08 Note Text: Pt is in a position of comfort Normal [facility] ED PROGRESS NOTE (PROVIDER)o n 07-04-2024 ED PROGRESS NOTE (PROVIDER) HNO ID: [id number] Author: SAHNNA HARRIS MD Service: Emergency Medicine Author Type: [...] intractable abdominal pain. Reportedly, was seen at [place] on two occasions with labs and CTs (non of which we can see in EMR) thought to possibly have Crohn's. PCP is Dr. Wilkinson who directed patient to come to [place]. At time of sign out patient is [...] 04, 2024 TIME: 7:24 PM PAGER/CONTACT #: [facility] ED PROV NOTEon 07-04-2024 ED PROV NOTE HNO ID: [id number] Author: SHANNA HARRIS MD Service: ? Author Type: Physician Shipping Clerk Crating Type: ED Provider Notes Filed: 07/04/2024 20:18 [...] last 4 days. She was seen at [facility] where she had labs and CAT scan [...] with: Abdominal Pain: was seen twice at [place] her dr andres her to come here pt states pain is not getting better 43-year-old female with a past medical history of breast cancer, CHF, GERD, kidney stones, presents to the ED today for abdominal pain, patient's had abdominal pain on and off now for the last couple weeks, she has been seen at [facility] twice over the last few days [...] PERMANENT TRANSVENOUS PACEMAKER INSERTION 2006 ICD implant, [facility] ANESTHESIA TUBAL LIGATION/TRANSECTION APPENDECTOMY 05/05/2014 [...] use: N (more content not included)... Normal [facility] HAV IgM Ser Qlon 07-04-2024 HAV IgM Ql (S) Negative Normal Negative [facility] Comment on above: Order Comment: Speci men Type: BLOOD SPECIMENOrdering Facility: [facility] Address: [address] [place] [address] Result Comment: No e vidence of recent infection with Hepatitis A virus. Performed By: #### 1 975-2, 56472-0, 33613-0, 5195-3 ####[facility] LABCLIA [id number] [place] [address] [place] HBV core IgM Ser Qlon 2024 HBV core IgM Ql (S) Negative Normal Negative [facility] Comment on above: Order Comment: Speci men Type: BLOOD SPECIMENOrdering Facility: [facility] Address: [address] [place] [address] Result Comment: No e vidence of recent infection with Hepatitis B virus. Should recent infection be suspected, repeat testing may be considered 3-4 weeks after this draw. Performed By: #### 1 975-2, 84195-9, 10503-1, 5195-3 ####[facility] LABCLIA [id number] [place] [address] [place] HBV surface Ag Ser Qlon 06-13 HBV surface Ag Ql (S) Negative Normal Negative [facility] Comment on above: Order Comment: Speci men Type: BLOOD SPECIMENOrdering Facility: [facility] Address: [address] [place] [address] Performed By: #### 1 975-2, 99028-5, 29763-9, 5195-3 ####[facility] LABCLIA [id number] [place] [address] [place] HCV RNA BIMAL+probe Qnon 07-04 HCV RNA BIMAL+probe Ql Not detected Normal Not detected [facility] Comment on above: Order Comment: Speci men Type: BLOOD SPECIMEN Ordering Facility: [facility] Address: [address] [place] [address] Performed By: #### 1 1011-4 #### [facility] CLIA [id number] [address] [place] [address] [place] Lipase SerPl-cCncon 07-05-19 25 Lipase [Catalytic activity/Vol] 26 U/L Normal 16-61 [facility] Comment on above: Order Comment: Speci men Type: BLOOD SPECIMENOrdering Facility: [facility] Address: [address] [place] [address] Performed By: #### H CGED, 3040-3, 31355-1 ####[facility]ORYCLIA [id number] [place] [address] [place] Pacemaker Checkon 07-04-2024 Pacemaker Check Normal [facility] TRICHOMONAS VAGINALIS NAATon 07-04-2024 T. vaginalis DNA BIMAL+probe Ql (Unsp spec) Not detected Normal Not detected [facility] Comment on above: Order Comment: Speci men Type: BLOOD SPECIMEN Ordering Facility: [facility] Address: [address] [place] [address] Performed By: #### 5 8410-2 #### [facility] CLIA [id number] [address] [place] [address] [place] US FEMALE PELV TRANSABD COMP LETEon 07-04-2024 FEMALE PELV TRANSABD COMPLETE * * *Final Report* * * DATE OF EXAM: Jul 04 2024 9:32PM [facility] 1065 - US FEMALE PELV TRANSABD COMPLETE / PROCEDURE REASON: Pelvic pain, negative beta-HCG, director search etiology suspected * * * * Physician Interpretation * * * * EXAMINATION: TRANSVAGINAL AND LIMITED TRANSABDOMINAL FEMALE PELVIC ULTRASOUND CLINICAL HISTORY: Pelvic pain TECHNIQUE: Sonography of the pelvis was performed by transvaginal and transabdominal (limited) techniques. Images were obtained and stored in a permanent archive. [facility] COMPAR[facility]: CT abdomen and pelvis same day [...] reportedly surgically absent. 3. Moderate pelvic ascites. Hydrogenation Operator: KIM Transcribe Date/Time: Jul 05 2024 12:55A Dictated by : ANASTASIA MEADOWS DO This examination was interpreted and the report reviewed and electronically signed by: ANASTASIA MEADOWS DO on Jul 05 2024 1:06AM EST [id number] Normal [facility] US FEMALE PELVIS TRANSVAGon 07-04-2024 US FEMALE PELVIS TRANSVAG * * *Final Report* * * DATE OF EXAM: Jul 04 2024 9:32PM MDDomo 1060 - US FEMALE PELVIS TRANSVAG / PROCEDURE REASON: Pelvic pain, negative beta-HCG, director search etiology suspected * * * * Physician Interpretation * * * * EXAMINATION: TRANSVAGINAL AND LIMITED TRANSABDOMINAL FEMALE PELVIC ULTRASOUND CLINICAL HISTORY: Pelvic pain TECHNIQUE: Sonography of the pelvis was performed by transvaginal and transabdominal (limited) techniques. Images were obtained and stored in a permanent archive. MQ: [facility]2021 COMPARISON: CT abdomen and pelvis same day [...] reportedly surgically absent. 3. Moderate pelvic ascites. Hydrogenation Operator: KIM Transcribe Date/Time: Jul 05 2024 12:55A Dictated by : ANASTASIA MEADOWS DO This examination was interpreted and the report reviewed and electronically signed by: ANASTASIA MEADOWS DO on Jul 05 2024 1:06AM EST [id number] Normal [facility] Urinalysis complete panel (U )on 07-04-2024 Bilirubin Ql (U) Negative Normal Negative [facility] Comment on above: Order Comment: Speci men Type: URINE SPECIMENOrdering Facility: [facility] Address: [address] [place] [address] Performed By: #### 2 5929-8 ####[facility]ORYCLIA [id number] [address] [place] Clarity (Unsp spec) Clear Normal Clear [facility] Comment on above: Order Comment: Speci men Type: URINE SPECIMENOrdering Facility: [facility] Address: [address] [place] [address] Performed By: #### 2 4356-8 ####[facility]ORYCLIA [id number] [address] [place] Color (U) Yellow Normal Yellow [facility] Comment on above: Order Comment: Speci men Type: URINE SPECIMENOrdering Facility: [facility] Address: [address] [place] [address] Performed By: #### 2 4356-8 ####[facility]ORYCLIA [id number] [address] Epithelial cells LM.HPF (Urine sed) [#/Area] Few Normal [facility] Comment on above: Order Comment: Speci men Type: URINE SPECIMENOrdering Facility: [facility] Address: [address] [place] [address] Performed By: #### 2 4356-8 ####[facility]ORYCLIA [id number] [address] Glucose Test strip (U) [Mass/Vol] Negative Normal Negative [facility] Comment on above: Order Comment: Speci men Type: URINE SPECIMENOrdering Facility: [facility] Address: [address] [place] [address] Performed By: #### 2 4356-8 ####[facility]ORYCLIA [id number] [address] [place] Hemoglobin Ql (U) 1+ Abnormal Negative [facility] Comment on above: Order Comment: Speci men Type: URINE SPECIMENOrdering Facility: [facility] Address: [address] [place] [address] Performed By: #### 2 4356-8 ####[facility]ORYCLIA [id number] [address] [place] Ketones Ql (U) Negative Normal Negative [facility] Comment on above: Order Comment: Speci men Type: URINE SPECIMENOrdering Facility: [facility] Address: [address] [place] [address] Performed By: #### 2 4356-8 ####[facility]ATORYCLIA [id number] [place] [address] [place] Leukocyte esterase Test strip Ql (U) Negative Normal Negative [facility] Comment on above: Order Comment: Speci men Type: URINE SPECIMENOrdering Facility: [facility] Address: [address] [place] [address] Performed By: #### 2 4356-8 ####[facility]ATORYCLIA [id number] [place] [address] [place] Nitrite Ql (U) Negative Normal Negative [facility] Comment on above: Order Comment: Speci men Type: URINE SPECIMENOrdering Facility: [facility] Address: [address] [place] [address] Performed By: #### 2 4356-8 ####[facility]ORATORYCLIA [id number] [place] [address] [place] pH (U) 6.0 [pH] Normal 5.0-8.0 [facility] Comment on above: Order Comment: Speci men Type: URINE SPECIMENOrdering Facility: [facility] Address: [address] [place] [address] Performed By: #### 2 4356-8 ####[facility]ATORYCLIA [id number] [place] [address] [place] Protein (U) [Mass/Vol] Negative Normal Negative [facility] Comment on above: Order Comment: Speci men Type: URINE SPECIMENOrdering Facility: [facility] Address: [address] [place] [address] Performed By: #### 2 4356-8 ####[facility]ATORYCLIA [id number] [place] [address] [place] RBC LM.HPF (Urine sed) [#/Area] 0-3 /HPF Normal 0-3 /HPF [facility] Comment on above: Order Comment: Speci men Type: URINE SPECIMENOrdering Facility: [facility] Address: [address] [place] [address] Performed By: #### 2 4356-8 ####[facility]ATORYCLIA [id number] [address] Specific gravity (U) [Rel density] 1.010 Normal 1.005-1.03 0 [facility] Comment on above: Order Comment: Speci men Type: URINE SPECIMENOrdering Facility: [facility] Address: [address] [place] [address] Performed By: #### 2 4356-8 ####[facility]ATORYCLIA [id number] [address] OF [facility] Urobilinogen Ql (U) 0.2 EU/dL Normal 0.2-1.0 EU/dL [facility] Comment on above: Order Comment: Speci men Type: URINE SPECIMENOrdering Facility: [facility] Address: [address] [place] [address] Performed By: #### 2 4356-8 ####[facility]ORATORYCLIA [id number] [address] WBC LM.HPF (Urine sed) [#/Area] 0-5 /HPF Normal 0-5 /HPF [facility] Comment on above: Order Comment: Speci men Type: URINE SPECIMENOrdering Facility: [facility] Address: [address] [place] [address] Performed By: #### 2 4356-8 ####[facility]ORATORYCLIA [id number] [address] [place] Abdomen/Pelvis W IV Cont ONL Yon 07-03-2024 Abdomen/Pelvis W IV Cont ONLY Normal [facility] Absolute lymphocyte countOrd ered By: Nabor Frey on 07-03-2024 Lymphocytes Auto (Unsp spec) [#/Vol] 0.93 10*3/uL 0.83-4.51 [facility] Absolute neutrophil countOrd ered By: Nabor Frey on 07-03-2024 Neutrophils (Bld) [#/Vol] 20.3 10*3/uL High 2.0-7.7 [facility] Anion gap in Serum or Plasma Ordered By: Nabor Frey on 07-03-2024 Anion gap [Moles/Vol] 10 mmol/L 5-15 [facility] Automated lymphocyte count a s percentage of total leukocytesOrdered By: Nabor Frey on 07-03-2024 Lymphocytes/100 WBC Auto (Unsp spec) 4.2 % Low - [facility] BUN/creatinine ratioOrdered By: Nabor Frey on 07-03-2024 Urea nitrogen/Creatinine [Mass ratio] 17.1 mg/mg - [facility] Basic Metabolic Profile (BMP )on 07-03-2024 BUN/CRE 17.1 RATIO Normal - [facility] Comment on above: Performed By: #### L 700.6800, L500.2500, L501.2450, L500.3400, L100.0100 ####[facility] [address] [place], [address] Calcium [Mass/Vol] 9.3 mg/dL Normal 7.6-11.0 [facility] Comment on above: Performed By: #### L 700.6800, L500.2500, L501.2450, L500.3400, L100.0100 ####[facility] [address] [place], [address] Chloride [Moles/Vol] 106 mmol/L Normal 98-108 [facility] Comment on above: Performed By: #### L 700.6800, L500.2500, L501.2450, L500.3400, L100.0100 ####[facility] [address] [place], [address] CO2 [Moles/Vol] 21.4 mmol/L Normal 21.0-32.0 [facility] Comment on above: Performed By: #### L 700.6800, L500.2500, L501.2450, L500.3400, L100.0100 ####[facility] [address] [place], [address] Creatinine [Mass/Vol] 0.81 mg/dL Normal 0.70-1.20 [facility] Comment on above: Performed By: #### L 700.6800, L500.2500, L501.2450, L500.3400, L100.0100 ####[facility] [address] [place], [address] ECRCL 76.53 ml/min Normal 50-250 [facility] Comment on above: Performed By: #### L 700.6800, L500.2500, L501.2450, L500.3400, L100.0100 ####[facility] [address] [place], [address] GAP 10 Normal 5-15 [facility] Comment on above: Performed By: #### L 700.6800, L500.2500, L501.2450, L500.3400, L100.0100 ####[facility] [address] [place], [address] GFR/1.73 sq M.predicted among non-blacks MDRD (S/P/Bld) [Vol rate/Area] 91 mL/min/{1.73_m2} Normal >60 [facility] Comment on above: Result Comment: mL/m in/1.73m2 CKD-EPI Creatinine Equation (2020) Performed By: #### L 700.6800, L500.2500, L501.2450, L500.3400, L100.0100 ####[facility] [address] [place], [address] Glucose [Mass/Vol] 104 mg/dL High 70-99 [facility] Comment on above: Performed By: #### L 700.6800, L500.2500, L501.2450, L500.3400, L100.0100 ####[facility] [address] [place], [address] Potassium [Moles/Vol] 4.4 mmol/L Normal 3.3-5.1 [facility] Comment on above: Performed By: #### L 700.6800, L500.2500, L501.2450, L500.3400, L100.0100 ####[facility] [address] [place], [address] Sodium [Moles/Vol] 138 mmol/L Normal 133-145 [facility] Comment on above: Performed By: #### L 700.6800, L500.2500, L501.2450, L500.3400, L100.0100 ####[facility] [address] [place], [address] Urea nitrogen [Mass/Vol] 14 mg/dL Normal 4-19 [facility] Comment on above: Performed By: #### L 700.6800, L500.2500, L501.2450, L500.3400, L100.0100 ####[facility] [address] [place], [address] Basophil percentageOrdered B y: Nabor Frey on 07-03-2024 Basophils/100 WBC (Bld) 0.2 % 0-1 [facility] Bilirubin Test strip Ql (U)O rdered By: Nabor Frey on 07-03-2024 Bilirubin Ql (U) Negative Negative [facility] Bilirubin directOrdered By: Nabor Frey on 07-03-2024 Bilirubin.direct [Mass/Vol] 0.27 mg/dL 0.00-0.30 [facility] Bilirubin, totalOrdered By: Nabor Frey on 07-03-2024 Bilirubin [Mass/Vol] 0.64 mg/dL 0.00-1.30 [facility] CBC W/Diff, Automatedon 06-13 Absolute Lymph 0.93 X10 3/uL Normal 0.83-4.51 [facility] Comment on above: Performed By: #### L 700.6800, L500.2500, L501.2450, L500.3400, L100.0100 ####[facility] [address] [place], [address] Absolute Neut 20.3 X10 3/uL High 2.0-7.7 [facility] Comment on above: Performed By: #### L 700.6800, L500.2500, L501.2450, L500.3400, L100.0100 ####[facility] [address] [place], [address] Basophils/100 WBC (Bld) 0.2 % Normal 0-1 [facility] Comment on above: Performed By: #### L 700.6800, L500.2500, L501.2450, L500.3400, L100.0100 ####[facility] [address] [place], [address] Eosinophils/100 WBC (Bld) 0.1 % Normal 0-5 [facility] Comment on above: Performed By: #### L 700.6800, L500.2500, L501.2450, L500.3400, L100.0100 ####[facility] [address] [place], [address] Erythrocyte distribution width (RBC) [Ratio] 15.3 % High 11.6-14.6 [facility] Comment on above: Performed By: #### L 700.6800, L500.2500, L501.2450, L500.3400, L100.0100 ####[facility] [address] [place], [address] Hematocrit (Bld) [Volume fraction] 41.5 % Normal 37-47 [facility] Comment on above: Performed By: #### L 700.6800, L500.2500, L501.2450, L500.3400, L100.0100 ####[facility] [address] [place], [address] Hemoglobin (Bld) [Mass/Vol] 13.8 g/dL Normal 12.0-15.0 [facility] Comment on above: Performed By: #### L 700.6800, L500.2500, L501.2450, L500.3400, L100.0100 ####[facility] [address] [place], [address] IG% 0.900 Normal 0.0-0.9 [facility] Comment on above: Result Comment: IG% - Immature Granulocytes (promyelocytes, myelocytes andmetamyelocytes) > 1% indicates that a LEFT SHIFT is Present. Performed By: #### L 700.6800, L500.2500, L501.2450, L500.3400, L100.0100 ####[facility] [address] [place], [address] Lymphocytes/100 WBC (Bld) 4.2 % Low 19-41 [facility] Comment on above: Performed By: #### L 700.6800, L500.2500, L501.2450, L500.3400, L100.0100 ####[facility] [address] [place], [address] MCH (RBC) [Entitic mass] 32.6 pg High 27.0-32.0 [facility] Comment on above: Performed By: #### L 700.6800, L500.2500, L501.2450, L500.3400, L100.0100 ####[facility] [address] [place], [address] MCHC (RBC) [Mass/Vol] 33.3 g/dL Normal 32-36 [facility] Comment on above: Performed By: #### L 700.6800, L500.2500, L501.2450, L500.3400, L100.0100 ####[facility] [address] [place], [address] MCV (RBC) [Entitic vol] 98.1 fL Normal 81-99 [facility] Comment on above: Performed By: #### L 700.6800, L500.2500, L501.2450, L500.3400, L100.0100 ####[facility] [address] [place], [address] Monocytes/100 WBC (Bld) 2.6 % Normal 0-10 [facility] Comment on above: Performed By: #### L 700.6800, L500.2500, L501.2450, L500.3400, L100.0100 ####[facility] [address] [place], [address] Neutrophils/100 WBC (Bld) 92.0 % High 47-70 [facility] Comment on above: Performed By: #### L 700.6800, L500.2500, L501.2450, L500.3400, L100.0100 ####[facility] [address] [place], [address] Nucleated RBC (Bld) [#/Vol] 0 10*3/uL Normal 0-5 [facility] Comment on above: Performed By: #### L 700.6800, L500.2500, L501.2450, L500.3400, L100.0100 ####[facility] [address] [place], [address] Platelet mean volume (Bld) [Entitic vol] 11.2 fL Normal 6.2-12.0 [facility] Comment on above: Performed By: #### L 700.6800, L500.2500, L501.2450, L500.3400, L100.0100 ####[facility] [address] [place], [address] Platelets (Bld) [#/Vol] 237 10*3/uL Normal 150-450 [facility] Comment on above: Performed By: #### L 700.6800, L500.2500, L501.2450, L500.3400, L100.0100 ####[facility] [address] [place], [address] RBC (Bld) [#/Vol] 4.23 10*6/uL Normal 4.2-5.4 [facility] Comment on above: Performed By: #### L 700.6800, L500.2500, L501.2450, L500.3400, L100.0100 ####[facility] [address] [place], [address] RDW SD 54.4 fl High 35.1-43.9 [facility] Comment on above: Performed By: #### L 700.6800, L500.2500, L501.2450, L500.3400, L100.0100 ####[facility] [address] [place], [address] WBC (Bld) [#/Vol] 22.0 10*3/uL High 4.4-11.0 [facility] Comment on above: Performed By: #### L 700.6800, L500.2500, L501.2450, L500.3400, L100.0100 ####[facility] [address] [place], [address] Carbon dioxide, total [Moles /volume] in Central venous bloodOrdered By: Nabor Frey on 07-03-2024 CO2 [Moles/Vol] 21.4 mmol/L 21.0-32.0 [facility] Chloride assayOrdered By: Carlton Frey on 07-03-2024 Chloride [Moles/Vol] 106 mmol/L 98-108 [facility] Emergency Department Summary on 07-03-2024 Emergency Department Summary Normal [facility] Eosinophil percentageOrdered By: Nabor Frey on 07-03-2024 Eosinophils/100 WBC (Bld) 0.1 % 0-5 [facility] Erythrocyte distribution wid th ratioOrdered By: Nabor Frey on 07-03-2024 Erythrocyte distribution width (RBC) [Ratio] 15.3 % High 11.6-14.6 [facility] Erythrocyte distribution wid th standard deviationOrdered By: Nabor Frey on 07-03-2024 Erythrocyte distribution width (RBC) [Ratio] 54.4 fl High 35.1-43.9 [facility] Gastroenterology Visit Repor ton 07-03-2024 Gastroenterology Visit Report Normal [facility] Glomerular filtration rate ( GFR) estimation/1.73 sq m using serum, plasma, or whole bOrdered By: Nabor Frey on 07-03-2024 GFR/1.73 sq M.predicted among non-blacks MDRD (S/P/Bld) [Vol rate/Area] 91 mL/min/{1.73_m2} >60 [facility] Comment on above: mL/min/1.73m2 CKD-EP I Creatinine Equation (2020) Hematocrit Auto (Bld) [Volum e fraction]Ordered By: Nabor Frey on 07-03-2024 Hematocrit (Bld) [Volume fraction] 41.5 % 37-47 [facility] Hemoglobin measurementOrdere d By: Nabor Frey on 07-03-2024 Hemoglobin (Bld) [Mass/Vol] 13.8 g/dL 12.0-15.0 [facility] Immature granulocytes/100 WB C Auto (Bld)Ordered By: Nabor Frey on 07-03-2024 Immature granulocytes/100 WBC (Bld) 0.900 % 0.0-0.9 [facility] Comment on above: IG% - Immature Granu locytes (promyelocytes, myelocytes and metamyelocytes) > 1% indicates that a LEFT SHIFT is Present. Ketones Test strip Ql (U)Ord ered By: Nabor Frey on 07-03-2024 Ketones Ql (U) Negative Negative [facility] Laboratory - Chemistry and C hemistry - challengeOrdered By: Nabor Frey on 07-03-2024 AST [Catalytic activity/Vol] 33 U/L High <32 [facility] Lipaseon 07-03-2024 Lipase [Catalytic activity/Vol] 25 U/L Normal 13-75 [facility] Comment on above: Result Comment: Liam rader note:LIPASE revised reference range effective 22.New Lipase methodology. Expected to produce lower valuesthan the previous assay method.NEW Reference Range: 13 - 75 U/L Performed By: #### L 700.6800, L500.2500, L501.2450, L500.3400, L100.0100 ####[facility] [address] [place], [address] Lipase measurementOrdered By : Nabor Frey on 07-03-2024 Lipase [Catalytic activity/Vol] 25 U/L 13-75 [facility] Comment on above: Please note:LIPASE r evised reference range effective 22. New Lipase methodology. Expected to produce lower values than the previous assay method. NEW Reference Range: 13 - 75 U/L Liver Profileon 07-03-2024 Albumin [Mass/Vol] 4.2 g/dL Normal 3.5-5.0 [facility] Comment on above: Performed By: #### L 700.6800, L500.2500, L501.2450, L500.3400, L100.0100 ####[facility] [address] [place], [address] ALK PHOS 111 U/L High 35-104 [facility] Comment on above: Performed By: #### L 700.6800, L500.2500, L501.2450, L500.3400, L100.0100 ####[facility] [address] [place], [address] ALT [Catalytic activity/Vol] 33 U/L Normal <=34 [facility] Comment on above: Performed By: #### L 700.6800, L500.2500, L501.2450, L500.3400, L100.0100 ####[facility] [address] [place], [address] AST [Catalytic activity/Vol] 33 U/L High <=31 [facility] Comment on above: Performed By: #### L 700.6800, L500.2500, L501.2450, L500.3400, L100.0100 ####[facility] [address] [place], [address] Bilirubin [Mass/Vol] 0.64 mg/dL Normal 0.00-1.30 [facility] Comment on above: Performed By: #### L 700.6800, L500.2500, L501.2450, L500.3400, L100.0100 ####[facility] [address] [place], [address] Bilirubin.direct [Mass/Vol] 0.27 mg/dL Normal 0.00-0.30 [facility] Comment on above: Performed By: #### L 700.6800, L500.2500, L501.2450, L500.3400, L100.0100 ####[facility] [address] [place], [address] Globulin (S) [Mass/Vol] 2.3 g/dL Normal 2.2-4.2 [facility] Comment on above: Performed By: #### L 700.6800, L500.2500, L501.2450, L500.3400, L100.0100 ####[facility] [address] [place], [address] T PROT 6.5 g/dL Normal 5.9-8.4 [facility] Comment on above: Performed By: #### L 700.6800, L500.2500, L501.2450, L500.3400, L100.0100 ####[facility] [address] [place], [address] MCV (mean corpuscular volume ) determinationOrdered By: Nabor Frey on 07-03-2024 MCV (RBC) [Entitic vol] 98.1 fL 81-99 [facility] Mean corpuscular hemoglobin (MCH) determinationOrdered By: Nabor Frey on 07-03-2024 MCH (RBC) [Entitic mass] 32.6 pg High 27.0-32.0 [facility] Mean corpuscular hemoglobin concentration (MCHC) determinationOrdered By: Nabor Frey on 07-03-2024 MCHC (RBC) [Mass/Vol] 33.3 g/dL 32-36 [facility] Mean platelet volume determi nationOrdered By: Nabor Frey on 07-03-2024 Platelet mean volume (Bld) [Entitic vol] 11.2 fL 6.2-12.0 [facility] Microscopic analysis of urin e for red blood cells (RBC)Ordered By: Nabor Frey on 07-03-2024 Microscopic analysis of urine for red blood cells (RBC) 0-5 SEEN /hpf 0-5 [facility] Monocyte percentageOrdered B y: Nabor Frey on 07-03-2024 Monocytes/100 WBC (Bld) 2.6 % 0-10 [facility] Mucus LM Ql (Urine sed)Order ed By: Nabor Frey on 07-03-2024 Mucus Ql (Urine sed) 0 SEEN /hpf [facility] Neutrophil percentageOrdered By: Nabor Frey on 07-03-2024 Neutrophils/100 WBC (Bld) 92.0 % High 47-70 [facility] Nitrite Test strip Ql (U)Ord ered By: Nabor Frey on 07-03-2024 Nitrite Ql (U) Negative Negative [facility] No Panel InformationOrdered By: Nabor Frey on 07-03-2024 33 U/L High <32 [facility] Nucleated red blood cell per centageOrdered By: Nabor Frey on 07-03-2024 Nucleated RBC/100 WBC (Bld) [Ratio] 0 % 0-5 [facility] Platelet countOrdered By: Carlton Frey on 07-03-2024 Platelets (Bld) [#/Vol] 237 10*3/uL 150-450 [facility] Potassium measurement (mass/ volume)Ordered By: Nabor Frey on 07-03-2024 Potassium (Unsp spec) [Mass/Vol] 4.4 mmol/L 3.3-5.1 [facility] ,Serum,hCG Quali.on 07-03-2024 HCG, SERUM QUAL Negative Normal [facility] Comment on above: Performed By: #### L 700.6800, L500.2500, L501.2450, L500.3400, L100.0100 ####[facility] [address] [place], [address] Protein Test strip Ql (U)Ord ered By: Nabor Frey on 07-03-2024 Protein Ql (U) 30 mg/dl High Negative [facility] RBC Auto (Bld) [#/Vol]Ordere d By: Nabor Frey on 07-03-2024 RBC (Bld) [#/Vol] 4.23 10*6/uL 4.2-5.4 [facility] Serum beta-hCG test, qualita tiveOrdered By: Nabor Frey on 07-03-2024 Beta HCG ( test) Ql Negative [facility] Serum creatinine measurement (mass/volume)Ordered By: Nabor Frey on 07-03-2024 Creatinine [Mass/Vol] 0.81 mg/dL 0.70-1.20 [facility] Serum globulin measurementOr dered By: Nabor Frey on 07-03-2024 Globulin (S) [Mass/Vol] 2.3 g/dL 2.2-4.2 [facility] Serum glucose measurement (m ass/volume)Ordered By: Nabor Frey on 07-03-2024 Glucose [Mass/Vol] 104 mg/dL High 70-99 [facility] Serum or plasma alanine hair otransferase (ALT) measurementOrdered By: Nabor Frey on 07-03-2024 ALT [Catalytic activity/Vol] 33 U/L <35 [facility] Serum or plasma albumin leslie urement (mass/volume)Ordered By: Nabor Frey on 07-03-2024 Albumin [Mass/Vol] 4.2 g/dL 3.5-5.0 [facility] Serum or plasma alkaline delfin sphatase measurementOrdered By: Nabor Frey on 07-03-2024 ALP [Catalytic activity/Vol] 111 U/L High 35-104 [facility] Serum or plasma calcium leslie urement (mass/volume)Ordered By: Nabor Frey on 07-03-2024 Calcium [Mass/Vol] 9.3 mg/dL 7.6-11.0 [facility] Serum or plasma urea nitroge n measurement (mass/volume)Ordered By: Nabor Frey on 07-03-2024 Urea nitrogen [Mass/Vol] 14 mg/dL 4-19 [facility] Sodium levelOrdered By: Charli Frey on 07-03-2024 Sodium [Moles/Vol] 138 mmol/L 133-145 [facility] Squamous epithelial cells de tection in urine sediment by light microscopyOrdered By: Nabor Frey on 07-03-2024 Epithelial cells.squamous LM Ql (Urine sed) 10-25 SEEN /hpf 5-10 [facility] Total proteinOrdered By: Juan Daniel Frey on 07-03-2024 Protein [Mass/Vol] 6.5 g/dL 5.9-8.4 [facility] Urinalysis, Completeon 07-03 BILIRUBIN URINE Negative Normal Negative [facility] Comment on above: Order Comment: CLEAN CATCH Performed By: #### L 400.0001 ####[facility] [address] [place], [address] Clarity (U) Sl. Cloudy Normal Clear [facility] Comment on above: Order Comment: CLEAN CATCH Performed By: #### L 400.0001 ####[facility] [address] [place], [address] Color (U) Yellow Normal Yellow [facility] Comment on above: Order Comment: CLEAN CATCH Performed By: #### L 400.0001 ####[facility] [address] [place], [address] GLUCOSE, UR Normal Normal Normal [facility] Comment on above: Order Comment: CLEAN CATCH Performed By: #### L 400.0001 ####[facility] [address] [place], [address] KETONE UR Negative Normal Negative [facility] Comment on above: Order Comment: CLEAN CATCH Performed By: #### L 400.0001 ####[facility] [address] [place], [address] LEUK ESTERASE Negative Normal Negative [facility] Comment on above: Order Comment: CLEAN CATCH Performed By: #### L 400.0001 ####[facility] [address] [place] [id number] Nitrite Ql (U) Negative Normal Negative [facility] Comment on above: Order Comment: CLEAN CATCH Performed By: #### L 400.0001 ####[facility] [address] [place] [id number] OCCULT BLOOD-UR 25 /ul Abnormal Negative [facility] Comment on above: Order Comment: CLEAN CATCH Performed By: #### L 400.0001 ####[facility] [address] [place], [address] pH UR 6.5 Normal 5.0 - 8.0 [facility] Comment on above: Order Comment: CLEAN CATCH Performed By: #### L 400.0001 ####[facility] [address] [place] [id number] PROT DIPSTX 30 mg/dl Abnormal Negative [facility] Comment on above: Order Comment: CLEAN CATCH Performed By: #### L 400.0001 ####[facility] [address] [place] [id number] SP.GR. DIPSTX 1.010 Normal 1.002-1.03 0 [facility] Comment on above: Order Comment: CLEAN CATCH Performed By: #### L 400.0001 ####[facility] [address] [place] [id number] UROBILI Normal Normal Normal [facility] Comment on above: Order Comment: CLEAN CATCH Performed By: #### L 400.0001 ####[facility] [address] [place], [address] Urine clarityOrdered By: Juan Daniel Frey on 07-03-2024 Clarity (U) Sl. Cloudy Clear [facility] Urine color determinationOrd ered By: Nabor Frey on 07-03-2024 Color (U) Yellow Yellow [facility] Urine glucose detectionOrder ed By: Nabor Frey on 07-03-2024 Glucose Ql (U) Normal mg/dl Normal [facility] Urine leukocyte esterase det ection by dipstickOrdered By: Nabor Frey on 07-03-2024 Leukocyte esterase Test strip Ql (U) Negative Negative [facility] Urine pHOrdered By: Nabor segal on 07-03-2024 pH (U) 6.5 [pH] 5.0 - 8.0 [facility] Urine sediment bacteria coun t by microscopy (number/high power field)Ordered By: Nabor Frey on 07-03-2024 Bacteria LM.HPF (Urine sed) [#/Area] 1 /[HPF] None Seen [facility] Urine specific gravity measu rementOrdered By: Nabor Frey on 07-03-2024 Specific gravity (U) [Rel density] 1.010 1.002-1.03 0 [facility] Urine urobilinogen measureme ntOrdered By: Nabor Frey on 07-03-2024 Urobilinogen Ql (U) Normal mg/dl Normal [facility] White blood cell (WBC) count Ordered By: Nabor Frey on 07-03-2024 WBC (Bld) [#/Vol] 22.0 10*3/uL High 4.4-11.0 [facility] White blood cell countOrdere d By: Nabor Frey on 07-03-2024 White blood cell count 0-5 SEEN /hpf 0-5 [facility] 36on 07-01-2024 36 Your fax has been successfully sent to Dr. Wilkinson at [phone]. From: Ella Cohen RN 07/01/2024 3:37:02 PM Origin Record Created by SHANTE 07/01/2024 3:37:12 PM Conversion [[id number]] Type: application/postscript G3 to TIFF #1: Success [image/g3] (77ms) GhostScript TIFF #1: Success [image/tiff] (209ms) ([id number]) 07/01/2024 3:37:18 PM Transmission Record Sent to [id number] with remote ID "[id number]" Result: Success Page record: 1 - 3 Elapsed time: 01:39 on channel 48 07/01/2024 3:37:19 PM Conversion Successfully created cover sheet. Type: application/vnd.openxmlf ormats-officedocument.wo rdprocessingml.document G3 to TIFF #1: Success [image/g3] (11ms) GhostScript TIFF #1: Success [image/tiff] (70ms) Resubmitted: [application/postscript] Word Automation #1: Success [image/g3] (1519ms) ([id number]) [facility] SHS 36 S: Patient spoke wit [...] smelled "fecal". 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 R: Patient understands care advice to go to ED now or call 911. Patient states she cannot leave her child at this time, but will go as soon as she has someone to take over care. Patient strongly advised to go immediately. She advises she will go to [place]. No further needs at this time. Patient [...] menstrual period?" no Protocols used: Abdominal Pain- [id number] Normal [facility] Abdomen/Pelvis W IV Cont ONL Yon 07-01-2024 Abdomen/Pelvis W IV Cont ONLY Normal [facility] Absolute lymphocyte countOrd ered By: Anita Willis on 07-01-2024 Lymphocytes Auto (Unsp spec) [#/Vol] 0.97 10*3/uL 0.83-4.51 [facility] Absolute neutrophil countOrd ered By: Anita Willis on 07-01-2024 Neutrophils (Bld) [#/Vol] 11.3 10*3/uL High 2.0-7.7 [facility] Anion gap in Serum or Plasma Ordered By: Anita Willis on 07-01-2024 Anion gap [Moles/Vol] 12 mmol/L 5- [facility] Automated lymphocyte count a s percentage of total leukocytesOrdered By: Anita Willis on 07-01-2024 Lymphocytes/100 WBC Auto (Unsp spec) 7.5 % Low 19-41 [facility] BUN/creatinine ratioOrdered By: Anita Willis on 07-01-2024 Urea nitrogen/Creatinine [Mass ratio] 14.9 mg/mg 10- [facility] Basophil percentageOrdered B y: Anita Willis on 07-01-2024 Basophils/100 WBC (Bld) 0.4 % 0-1 [facility] Beta HCG ( test) Ql Ordered By: Anita Willis on 07-01-2024 Serum Test, Qualitative Negative [facility] Bilirubin Test strip Ql (U)O rdered By: Anita Willis on 07-01-2024 Bilirubin Ql (U) Negative Negative [facility] Bilirubin, totalOrdered By: Anita Willis on 07-01-2024 Bilirubin [Mass/Vol] 0.66 mg/dL 0.00-1.30 [facility] Comment on above: Performed By: #### L 700.6800, L100.0100, L501.2450, L500.4050 ####[facility] [address] [place], [place], [id number] CBC W/Diff, Automatedon 06-13 Absolute Lymph 0.97 X10 3/uL Normal 0.83-4.51 [facility] Comment on above: Performed By: #### L 700.6800, L100.0100, L501.2450, L500.4050 ####[facility] [address] [place], [address] Absolute Neut 11.3 X10 3/uL High 2.0-7.7 [facility] Comment on above: Performed By: #### L 700.6800, L100.0100, L501.2450, L500.4050 ####[facility] [address] [place], [address] Basophils/100 WBC (Bld) 0.4 % Normal 0-1 [facility] Comment on above: Performed By: #### L 700.6800, L100.0100, L501.2450, L500.4050 ####[facility] [address] [place], [address] Eosinophils/100 WBC (Bld) 0.9 % Normal 0-5 [facility] Comment on above: Performed By: #### L 700.6800, L100.0100, L501.2450, L500.4050 ####[facility] [address] [place], [address] Erythrocyte distribution width (RBC) [Ratio] 14.9 % High 11.6-14.6 [facility] Comment on above: Performed By: #### L 700.6800, L100.0100, L501.2450, L500.4050 ####[facility] [address] [place], [address] Hematocrit (Bld) [Volume fraction] 43.5 % Normal 37-47 [facility] Comment on above: Performed By: #### L 700.6800, L100.0100, L501.2450, L500.4050 ####[facility] [address] [place], [address] Hemoglobin (Bld) [Mass/Vol] 14.7 g/dL Normal 12.0-15.0 [facility] Comment on above: Performed By: #### L 700.6800, L100.0100, L501.2450, L500.4050 ####[facility] [address] [place], [address] IG% 0.400 Normal 0.0-0.9 [facility] Comment on above: Result Comment: IG% - Immature Granulocytes (promyelocytes, myelocytes andmetamyelocytes) > 1% indicates that a LEFT SHIFT is Present. Performed By: #### L 700.6800, L100.0100, L501.2450, L500.4050 ####[facility] [address] [place], [address] Lymphocytes/100 WBC (Bld) 7.5 % Low 19-41 [facility] Comment on above: Performed By: #### L 700.6800, L100.0100, L501.2450, L500.4050 ####[facility] [address] [place], [address] MCH (RBC) [Entitic mass] 32.7 pg High 27.0-32.0 [facility] Comment on above: Performed By: #### L 700.6800, L100.0100, L501.2450, L500.4050 ####[facility] [address] [place], [address] MCHC (RBC) [Mass/Vol] 33.8 g/dL Normal 32-36 [facility] Comment on above: Performed By: #### L 700.6800, L100.0100, L501.2450, L500.4050 ####[facility] [address] [place], [address] MCV (RBC) [Entitic vol] 96.7 fL Normal 81-99 [facility] Comment on above: Performed By: #### L 700.6800, L100.0100, L501.2450, L500.4050 ####[facility] [address] [place], [address] Monocytes/100 WBC (Bld) 3.1 % Normal 0-10 [facility] Comment on above: Performed By: #### L 700.6800, L100.0100, L501.2450, L500.4050 ####[facility] [address] [place], [address] Neutrophils/100 WBC (Bld) 87.7 % High 47-70 [facility] Comment on above: Performed By: #### L 700.6800, L100.0100, L501.2450, L500.4050 ####[facility] [address] [place], [address] Nucleated RBC (Bld) [#/Vol] 0 10*3/uL Normal 0-5 [facility] Comment on above: Performed By: #### L 700.6800, L100.0100, L501.2450, L500.4050 ####[facility] [address] [place], [address] Platelet mean volume (Bld) [Entitic vol] 10.7 fL Normal 6.2-12.0 [facility] Comment on above: Performed By: #### L 700.6800, L100.0100, L501.2450, L500.4050 ####[facility] [address] [place], [address] Platelets (Bld) [#/Vol] 239 10*3/uL Normal 150-450 [facility] Comment on above: Performed By: #### L 700.6800, L100.0100, L501.2450, L500.4050 ####[facility] [address] [place], [address] RBC (Bld) [#/Vol] 4.50 10*6/uL Normal 4.2-5.4 [facility] Comment on above: Performed By: #### L 700.6800, L100.0100, L501.2450, L500.4050 ####[facility] [address] [place], [address] RDW SD 53.1 fl High 35.1-43.9 [facility] Comment on above: Performed By: #### L 700.6800, L100.0100, L501.2450, L500.4050 ####[facility] [address] [place], [address] WBC (Bld) [#/Vol] 12.9 10*3/uL High 4.4-11.0 [facility] Comment on above: Performed By: #### L 700.6800, L100.0100, L501.2450, L500.4050 ####[facility] [address] [place], [address] Carbon dioxide, total [Moles /volume] in Central venous bloodOrdered By: Anita Willis on 07-01-2024 CO2 [Moles/Vol] 19.2 mmol/L Low 21.0-32.0 [facility] Comment on above: Performed By: #### L 700.6800, L100.0100, L501.2450, L500.4050 ####[facility] [address] [place], [address] Chloride assayOrdered By: Reyna Willis on 07-01-2024 Chloride [Moles/Vol] 109 mmol/L High 98-108 [facility] Comment on above: Performed By: #### L 700.6800, L100.0100, L501.2450, L500.4050 ####[facility] [address] [place], [address] Comprehensive Metabolic Prof ilon 07-01-2024 ALK PHOS 116 U/L High 35-104 [facility] Comment on above: Performed By: #### L 700.6800, L100.0100, L501.2450, L500.4050 ####[facility] [address] [place], [address] BUN/CRE 14.9 RATIO Normal 10-20 [facility] Comment on above: Performed By: #### L 700.6800, L100.0100, L501.2450, L500.4050 ####[facility] [address] [place], [address] ECRCL 59.61 ml/min Normal 50-250 [facility] Comment on above: Performed By: #### L 700.6800, L100.0100, L501.2450, L500.4050 ####[facility] [address] [place], [address] GAP 12 Normal 5-15 [facility] Comment on above: Performed By: #### L 700.6800, L100.0100, L501.2450, L500.4050 ####[facility] [address] [place], [address] T PROT 6.7 g/dL Normal 5.9-8.4 [facility] Comment on above: Performed By: #### L 700.6800, L100.0100, L501.2450, L500.4050 ####[facility] [address] [place], [address] Comprehensive Metabolic Prof ilOrdered By: Anita Willis on 07-01-2024 AST [Catalytic activity/Vol] 30 U/L Normal <=31 [facility] Comment on above: Performed By: #### L 700.6800, L100.0100, L501.2450, L500.4050 ####[facility] [address] [place], [address] Emergency Department Summary on 07-01-2024 Emergency Department Summary Normal [facility] Eosinophil percentageOrdered By: Anita Willis on 07-01-2024 Eosinophils/100 WBC (Bld) 0.9 % 0-5 [facility] Epithelial cells.squamous LM Ql (Urine sed)Ordered By: Anita Willis on 07-01-2024 Epithelial cells.squamous LM.HPF (Urine sed) [#/Area] 0 /[HPF] 5-10 [facility] Erythrocyte distribution wid th (RBC) [Ratio]Ordered By: Anita Willis on 07-01-2024 Erythrocyte distribution width (RBC) [Entitic vol] 53.1 fL High 35.1-43.9 [facility] Erythrocyte distribution wid th ratioOrdered By: Anita Willis on 07-01-2024 Erythrocyte distribution width (RBC) [Ratio] 14.9 % High 11.6-14.6 [facility] Erythrocyte distribution wid th standard deviationOrdered By: Anita Willis on 07-01-2024 Erythrocyte distribution width (RBC) [Ratio] 53.1 fl High 35.1-43.9 [facility] Estimation of creatinine monico aranceOrdered By: Anita Willis on 07-01-2024 Estimated Creatinine Clearance Calc 59.61 ml/min 50-250 [facility] GFR/1.73 sq M.predicted shweta g non-blacks MDRD (S/P/Bld) [Vol rate/Area]Ordered By: Anita Willis on 07-01-2024 Estimated GFR (MDRD) Non-Af Amer 68 >60 [facility] Comment on above: mL/min/1.73m2 CKD-EP I Creatinine Equation (2020) Glomerular filtration rate ( GFR) estimation/1.73 sq m using serum, plasma, or whole bOrdered By: Anita Willis on 07-01-2024 GFR/1.73 sq M.predicted among non-blacks MDRD (S/P/Bld) [Vol rate/Area] 68 mL/min/{1.73_m2} >60 [facility] Comment on above: mL/min/1.73m2 CKD-EP I Creatinine Equation (2020) Result Comment: mL/m in/1.73m2 CKD-EPI Creatinine Equation (2020) Performed By: #### L 700.6800, L100.0100, L501.2450, L500.4050 ####[facility] [address] [place], [address] Glucose Ql (U)Ordered By: Reyna Willis on 07-01-2024 Urine Glucose (UA) Normal mg/dl Normal [facility] Hematocrit Auto (Bld) [Volum e fraction]Ordered By: Anita Willis on 07-01-2024 Hematocrit (Bld) [Volume fraction] 43.5 % 37-47 [facility] Hemoglobin measurementOrdere d By: Anita Willis on 07-01-2024 Hemoglobin (Bld) [Mass/Vol] 14.7 g/dL 12.0-15.0 [facility] Immature granulocytes/100 WB C Auto (Bld)Ordered By: Anita Willis on 07-01-2024 Immature granulocytes/100 WBC (Bld) 0.400 % 0.0-0.9 [facility] Comment on above: IG% - Immature Granu locytes (promyelocytes, myelocytes and metamyelocytes) > 1% indicates that a LEFT SHIFT is Present. Ketones Test strip Ql (U)Ord ered By: Anita Willis on 07-01-2024 Ketones Ql (U) Negative Negative [facility] Lipase measurementOrdered By : Anita Willis on 07-01-2024 Lipase [Catalytic activity/Vol] 35 U/L Normal 13-75 [facility] Comment on above: Please note:LIPASE r evised [...] By: #### L 700.6800, L100.0100, L501.2450, L500.4050 ####[facility] [address] [place], [address] Lymphocytes Auto (Unsp spec) [#/Vol]Ordered By: Anita Willis on 07-01-2024 Lymphocytes (Bld) [#/Vol] 0.97 10*3/uL 0.83-4.51 [facility] Lymphocytes/100 WBC Auto (Un sp spec)Ordered By: Anita Willis on 07-01-2024 Lymphocytes/100 WBC (Bld) 7.5 % Low 19-41 [facility] MCV (mean corpuscular volume ) determinationOrdered By: Anita Willis on 07-01-2024 MCV (RBC) [Entitic vol] 96.7 fL 81-99 [facility] Mean corpuscular hemoglobin (MCH) determinationOrdered By: Anita Willis on 07-01-2024 MCH (RBC) [Entitic mass] 32.7 pg High 27.0-32.0 [facility] Mean corpuscular hemoglobin concentration (MCHC) determinationOrdered By: Anita Willis on 07-01-2024 MCHC (RBC) [Mass/Vol] 33.8 g/dL 32-36 [facility] Mean platelet volume determi nationOrdered By: Anita Willis on 07-01-2024 Platelet mean volume (Bld) [Entitic vol] 10.7 fL 6.2-12.0 [facility] Microscopic analysis of urin e for red blood cells (RBC)Ordered By: Anita Willis on 07-01-2024 Microscopic analysis of urine for red blood cells (RBC) 0-5 SEEN /hpf 0-5 [facility] Urine RBC 0-5 SEEN /hpf 0-5 [facility] Monocyte percentageOrdered B y: Anita Willis on 07-01-2024 Monocytes/100 WBC (Bld) 3.1 % 0-10 [facility] Mucus LM Ql (Urine sed)Order ed By: Anita Willis on 07-01-2024 Mucus Ql (Urine sed) 0 SEEN /hpf [facility] Neutrophil percentageOrdered By: Anita Willis on 07-01-2024 Neutrophils/100 WBC (Bld) 87.7 % High 47-70 [facility] Nitrite Test strip Ql (U)Ord ered By: Anita Willis on 07-01-2024 Nitrite Ql (U) Negative Negative [facility] No Panel InformationOrdered By: Anita Willis on 07-01-2024 30 U/L <32 [facility] Nucleated red blood cell per centageOrdered By: Anita Willis on 07-01-2024 Nucleated RBC/100 WBC (Bld) [Ratio] 0 % 0-5 [facility] Platelet countOrdered By: Reyna Willis on 07-01-2024 Platelets (Bld) [#/Vol] 239 10*3/uL 150-450 [facility] Potassium measurement (mass/ volume)Ordered By: Anita Willis on 07-01-2024 Potassium (Unsp spec) [Mass/Vol] 4.0 mmol/L 3.3-5.1 [facility] Potassium [Moles/Vol] 4.0 mmol/L Normal 3.3-5.1 [facility] Comment on above: Performed By: #### L 700.6800, L100.0100, L501.2450, L500.4050 ####[facility] [address] [place], [place], [id number] ,Serum,hCG Quali.on 07-01-2024 HCG, SERUM QUAL Negative Normal [facility] Comment on above: Performed By: #### L 700.6800, L100.0100, L501.2450, L500.4050 ####[facility] [address] [place], [address] Protein Test strip Ql (U)Ord ered By: Anita Willis on 07-01-2024 Protein Ql (U) 30 mg/dl High Negative [facility] RBC Auto (Bld) [#/Vol]Ordere d By: Anita Willis on 07-01-2024 RBC (Bld) [#/Vol] 4.50 10*6/uL 4.2-5.4 [facility] Serum beta-hCG test, qualita tiveOrdered By: Anita Willis on 07-01-2024 Beta HCG ( test) Ql Negative [facility] Serum creatinine measurement (mass/volume)Ordered By: Anita Willis on 07-01-2024 Creatinine [Mass/Vol] 1.04 mg/dL 0.70-1.20 [facility] Comment on above: Performed By: #### L 700.6800, L100.0100, L501.2450, L500.4050 ####[facility] [address] [place], [address] Serum globulin measurementOr dered By: Anita Willis on 07-01-2024 Globulin (S) [Mass/Vol] 2.5 g/dL 2.2-4.2 [facility] Comment on above: Performed By: #### L 700.6800, L100.0100, L501.2450, L500.4050 ####[facility] [address] [place], [address] Serum glucose measurement (m ass/volume)Ordered By: Anita Willis on 07-01-2024 Glucose [Mass/Vol] 103 mg/dL High 70-99 [facility] Comment on above: Performed By: #### L 700.6800, L100.0100, L501.2450, L500.4050 ####[facility] [address] [place], [address] Serum or plasma alanine hair otransferase (ALT) measurementOrdered By: Anita Willis on 07-01-2024 ALT [Catalytic activity/Vol] 27 U/L <35 [facility] Comment on above: Performed By: #### L 700.6800, L100.0100, L501.2450, L500.4050 ####[facility] [address] [place], [address] Serum or plasma albumin leslie urement (mass/volume)Ordered By: Anita Willis on 07-01-2024 Albumin [Mass/Vol] 4.2 g/dL 3.5-5.0 [facility] Comment on above: Performed By: #### L 700.6800, L100.0100, L501.2450, L500.4050 ####[facility] [address] [place], [address] Serum or plasma albumin/glob ulin mass ratioOrdered By: Anita Willis on 07-01-2024 Albumin/Globulin [Mass ratio] 1.7 {ratio} 0.9-2.4 [facility] Comment on above: Performed By: #### L 700.6800, L100.0100, L501.2450, L500.4050 ####[facility] [address] [place], [address] Serum or plasma alkaline delfin sphatase measurementOrdered By: Anita Willis on 07-01-2024 ALP [Catalytic activity/Vol] 116 U/L High 35-104 [facility] Serum or plasma calcium leslie urement (mass/volume)Ordered By: Anita Willis on 07-01-2024 Calcium [Mass/Vol] 9.0 mg/dL 7.6-11.0 [facility] Comment on above: Performed By: #### L 700.6800, L100.0100, L501.2450, L500.4050 ####[facility] [address] [place], [address] Serum or plasma urea nitroge n measurement (mass/volume)Ordered By: Anita Willis on 07-01-2024 Urea nitrogen [Mass/Vol] 16 mg/dL 4-19 [facility] Comment on above: Performed By: #### L 700.6800, L100.0100, L501.2450, L500.4050 ####[facility] [address] [place], [address] Sodium levelOrdered By: Dakotah Willis on 07-01-2024 Sodium [Moles/Vol] 139 mmol/L 133-145 [facility] Comment on above: Performed By: #### L 700.6800, L100.0100, L501.2450, L500.4050 ####[facility] [address] [place], [address] Squamous epithelial cells de tection in urine sediment by light microscopyOrdered By: Anita Willis on 07-01-2024 Epithelial cells.squamous LM Ql (Urine sed) 0-5 SEEN /hpf 5-10 [facility] Total proteinOrdered By: Florin Willis on 07-01-2024 Protein [Mass/Vol] 6.7 g/dL 5.9-8.4 [facility] Urinalysis, Completeon 07-01 BACTERIA 2+ /hpf Normal None Seen [facility] Comment on above: Order Comment: HARITHA CTOR TO SPECIFY Performed By: #### L 400.0001 ####[facility] [address] [place], [address] EPI,SQUAMOUS 0-5 SEEN Normal 5-10 [facility] Comment on above: Order Comment: HARITHA CTOR TO SPECIFY Performed By: #### L 400.0001 ####[facility] [address] [place], [address] RBC 0-5 SEEN Normal 0-5 [facility] Comment on above: Order Comment: HARITHA CTOR TO SPECIFY Performed By: #### L 400.0001 ####[facility] [address] [place], [address] Mucus Ql (Urine sed) 0 SEEN Normal [facility] Comment on above: Order Comment: HARITHA CTOR TO SPECIFY Performed By: #### L 400.0001 ####[facility] [address] [place], [address] WBC 0 SEEN Normal 0-5 [facility] Comment on above: Order Comment: HARITHA CTOR TO SPECIFY Performed By: #### L 400.0001 ####[facility] [address] [place], [address] Urine blood detectionOrdered By: Anita Willis on 07-01-2024 Urine Occult Blood 50 /ul High Negative [facility] Urine clarityOrdered By: Florin Willis on 07-01-2024 Clarity (U) Clear Clear [facility] Urine color determinationOrd ered By: Anita Willis on 07-01-2024 Color (U) Yellow Yellow [facility] Urine glucose detectionOrder ed By: Anita Willis on 07-01-2024 Glucose Ql (U) Normal mg/dl Normal [facility] Urine leukocyte esterase det ection by dipstickOrdered By: Anita Willis on 07-01-2024 Leukocyte esterase Test strip Ql (U) Negative Negative [facility] Urine pHOrdered By: Parag Willis on 07-01-2024 pH (U) 6.0 [pH] 5.0 - 8.0 [facility] Urine sediment bacteria coun t by microscopy (number/high power field)Ordered By: Anita Willis on 07-01-2024 Bacteria LM.HPF (Urine sed) [#/Area] 2 /[HPF] None Seen [facility] Urine specific gravity measu rementOrdered By: Anita Willis on 07-01-2024 Specific gravity (U) [Rel density] 1.010 1.002-1.03 0 [facility] Urine urobilinogen measureme ntOrdered By: Anita Willis on 07-01-2024 Urobilinogen Ql (U) Normal mg/dl Normal [facility] Urobilinogen Ql (U)Ordered B y: Anita Willis on 07-01-2024 Urine Urobilinogen Normal mg/dl Normal [facility] White blood cell (WBC) count Ordered By: Anita Willis on 07-01-2024 WBC (Bld) [#/Vol] 12.9 10*3/uL High 4.4-11.0 [facility] White blood cell countOrdere d By: Anita Willis on 07-01-2024 Urine WBC 0 SEEN /hpf 0-5 [facility] White blood cell count 0 SEEN /hpf 0-5 [facility] CBC panel Auto (Bld)on 05-21 Erythrocyte distribution width (RBC) [Ratio] 14.0 % Normal 11.5-15.0 [facility] Comment on above: Order Comment: Speci men Type: BLOOD SPECIMEN Ordering Facility: [facility] Address: [address] [place] [address] Performed By: #### 5 8410-2 #### [facility] CLIA [id number] [address] [facility] Hematocrit (Bld) [Volume fraction] 49.4 % High 36.0-46.0 [facility] Comment on above: Order Comment: Speci men Type: BLOOD SPECIMEN Ordering Facility: [facility] Address: [address] [place] [address] Performed By: #### 5 8410-2 #### [facility] CLIA [id number] [address] [place] Hemoglobin (Bld) [Mass/Vol] 16.5 g/dL High 11.5-15.5 [facility] Comment on above: Order Comment: Speci men Type: BLOOD SPECIMEN Ordering Facility: [facility] Address: [address] [place] [address] Performed By: #### 5 8410-2 #### [facility] CLIA [id number] [address] MCH (RBC) [Entitic mass] 32.0 pg Normal 26.0-34.0 [facility] Comment on above: Order Comment: Speci men Type: BLOOD SPECIMEN Ordering Facility: [facility] Address: [address] [place] [address] Performed By: #### 5 8410-2 #### [facility] CLIA [id number] [address] [place] MCHC (RBC) [Mass/Vol] 33.4 g/dL Normal 30.5-36.0 [facility] Comment on above: Order Comment: Speci men Type: BLOOD SPECIMEN Ordering Facility: [facility] Address: [address] [place] [address] Performed By: #### 5 8410-2 #### [facility] CLIA [id number] [address] [place] MCV (RBC) [Entitic vol] 95.7 fL Normal 80.0-100.0 M [facility] Comment on above: Order Comment: Speci men Type: BLOOD SPECIMEN Ordering Facility: [facility] Address: [address] [place] [address] Performed By: #### 5 8410-2 #### [facility] CLIA [id number] [address] [place] [address] [place] Nucleated RBC (Bld) [#/Vol] 10*3/uL Normal <0.01 [facility] Comment on above: Order Comment: Speci men Type: BLOOD SPECIMEN Ordering Facility: [facility] Address: [address] [place] [address] Performed By: #### 5 8410-2 #### [facility] CLIA [id number] [address] [place] Platelet mean volume (Bld) [Entitic vol] 10.0 fL Normal 9.0-12.7 [facility] Comment on above: Order Comment: Speci men Type: BLOOD SPECIMEN Ordering Facility: [facility] Address: [address] [place] [address] Performed By: #### 5 8410-2 #### [facility] CLIA [id number] [address] [place] Platelets (Bld) [#/Vol] 288 10*3/uL Normal 150-400 [facility] Comment on above: Order Comment: Speci men Type: BLOOD SPECIMEN Ordering Facility: [facility] Address: [address] [place] [address] Performed By: #### 5 8410-2 #### [facility] CLIA [id number] [address] [place] RBC (Bld) [#/Vol] 5.16 10*6/uL Normal 3.90-5.20 [facility] Comment on above: Order Comment: Speci men Type: BLOOD SPECIMEN Ordering Facility: [facility] Address: [address] [place] [address] Performed By: #### 5 8410-2 #### [facility] CLIA [id number] 1000 [place] [address] [place] WBC (Bld) [#/Vol] 12.02 10*3/uL High 3.70-11.00 [facility] Comment on above: Order Comment: Speci men Type: BLOOD SPECIMEN Ordering Facility: [facility] Address: [address] [place] [address] Performed By: #### 5 8410-2 #### [facility] CLIA [id number] [address] [place] [address] [facility] CNCOon 05-21-2024 CNCO Letter Text Normal [facility] CNDSon 05-21-2024 CNDS HNO ID: [id number] Author: DEX WILKINSON MD Service: Family Practice [...] Dex Wilkinson MD Nurse Practitioner: Josie Ovalles APRN.WHEEL AND PINION INSPECTOR Consulting: Luis Miguel Vuong MD MY CONDITION [...] call for appointment?: Yes Dex Wilkinson MD [phone] [facility] [address] [place] [address] PCP Requested Referral GENERAL: alert, no distress, [...] intact., Treatment Team: Nurse Practitioner: Josie Ovalles APRN.WHEEL AND PINION INSPECTOR FOLLOW-UP APPOINTMENTS ALREADY SCHEDULED WITH A [facility] PROVIDER: No future appointments. ALLERGIES Allergen Reactions Prozac [Fluoxetine * Other: See Comments suicidal ideations Ativan [Lorazepam] Vomiting Azithromycin Intolerance [place] Anaphylaxis [place] Anaphylaxis pickles Fish Anaphylaxis Levofloxacin In D5w [...] Your Medications These medications were sent to [facility] [address] [place] [address] - [address] [place] [address] - [phone] [place], [place] [id number] cephALEXin 500 mg capsule oxyCODONE IR 5 mg immediate release tablet Additional Information Additional Health Information I Need to Know After I Leave the Hospital No additional instructions. The patient's risk for 30-day readmission is determined using the following contributing factors: Predictive Model Detai (more content not included)... Normal [facility] Comprehensive metabolic 2000 panelon 05-21-2024 Albumin [Mass/Vol] 4.0 g/dL Normal 3.9-4.9 [facility] Comment on above: Order Comment: David horton Type: BLOOD SPECIMENOrdering Facility: [facility] Address: [address] [place] [address] Performed By: #### 2 4323-8 ####[facility] [id number] [place] [address] [place] ALP [Catalytic activity/Vol] 223 U/L High 34-123 [facility] Comment on above: Order Comment: David horton Type: BLOOD SPECIMENOrdering Facility: [facility] Address: [address] [place] [address] Performed By: #### 2 4323-8 ####[facility] [id number] [place] [address] [place] ALT [Catalytic activity/Vol] 113 U/L High 7-38 [facility] Comment on above: Order Comment: David horton Type: BLOOD SPECIMENOrdering Facility: [facility] Address: [address] [place] [address] Performed By: #### 2 4323-8 ####[facility] [id number] [place] [address] [place] Anion gap [Moles/Vol] 17 mmol/L High 8-15 [facility] Comment on above: Order Comment: Speci men Type: BLOOD SPECIMENOrdering Facility: [facility] Address: [address] [place] [address] Performed By: #### 2 4323-8 ####[facility] [id number] [place] [address] [place] AST [Catalytic activity/Vol] Normal [facility] Comment on above: Order Comment: Speci men Type: BLOOD SPECIMENOrdering Facility: [facility] Address: [address] [place] [address] Result Comment: Unab le to assay due to interference from hemolysis. Suggest reorder as clinically indicated. Performed By: #### 2 4323-8 ####[facility] [id number] [place] [address] [place] Bilirubin [Mass/Vol] 0.4 mg/dL Normal 0.2-1.3 [facility] Comment on above: Order Comment: Speci men Type: BLOOD SPECIMENOrdering Facility: [facility] Address: [address] [place] [address] Performed By: #### 2 4323-8 ####[facility] [id number] [address] [place] Calcium [Mass/Vol] 9.8 mg/dL Normal 8.5-10.2 [facility] Comment on above: Order Comment: Speci men Type: BLOOD SPECIMENOrdering Facility: [facility] Address: [address] [place] [address] Performed By: #### 2 4323-8 ####[facility] [id number] [place] [address] [place] Chloride [Moles/Vol] 95 mmol/L Low 98-107 [facility] Comment on above: Order Comment: Speci men Type: BLOOD SPECIMENOrdering Facility: [facility] Address: [address] [place] [address] Performed By: #### 2 4323-8 ####[facility] [id number] [place] [id number] [place] CO2 [Moles/Vol] 22 mmol/L Normal 22-30 [facility] Comment on above: Order Comment: Speci men Type: BLOOD SPECIMENOrdering Facility: [facility] Address: [address] [place] [address] Performed By: #### 2 4323-8 ####[facility] [id number] [place] [address] [place] Creatinine [Mass/Vol] 0.94 mg/dL Normal 0.58-0.96 [facility] Comment on above: Order Comment: Speci men Type: BLOOD SPECIMENOrdering Facility: [facility] Address: [address] [place] [address] Performed By: #### 2 4323-8 ####[facility] [id number] [address] Creatinine and Glomerular filtration rate.predicted panel (S/P/Bld) 77 mL/min/1.73m??? Normal >=60 [facility] Comment on above: Order Comment: Speci men Type: BLOOD SPECIMENOrdering Facility: [facility] Address: [address] [place] [address] Result Comment: Sandie mated Glomerular Filtration Rate [...] Performed By: #### 2 4323-8 ####[facility] [id number] [place] [id number] [place] Glucose [Mass/Vol] 82 mg/dL Normal 74-99 [facility] Comment on above: Order Comment: Speci men Type: BLOOD SPECIMENOrdering Facility: [facility] Address: [address] [place] [address] Result Comment: The [place] Diabetes [employer] (ADA) provides guidance for cutoff [...] Standards of Medical Care in Diabetes 2016, [place] [employer]. Diabetes Care. 2016.39(Suppl 1). Performed By: #### 2 4323-8 ####[facility] [id number] [place] [address] [place] Potassium [Moles/Vol] 4.7 mmol/L Normal 3.7-5.1 [facility] Comment on above: Order Comment: Speci men Type: BLOOD SPECIMENOrdering Facility: [facility] Address: [address] [place] [address] Performed By: #### 2 4323-8 ####[facility] [id number] [place] [address] [place] Protein [Mass/Vol] 7.0 g/dL Normal 6.3-8.0 [facility] Comment on above: Order Comment: Speci men Type: BLOOD SPECIMENOrdering Facility: [facility] Address: [address] [place] [address] Performed By: #### 2 4323-8 ####[facility] [id number] [place] [address] [place] Sodium [Moles/Vol] 134 mmol/L Low 136-144 [facility] Comment on above: Order Comment: Speci men Type: BLOOD SPECIMENOrdering Facility: [facility] Address: [address] [place] [address] Performed By: #### 2 4323-8 ####[facility] [id number] [place] [address] [place] Urea nitrogen [Mass/Vol] 22 mg/dL High 7-21 [facility] Comment on above: Order Comment: David horton Type: BLOOD SPECIMENOrdering Facility: [facility] Address: [address] [place] [address] Performed By: #### 2 4323-8 ####[facility] [id number] [address] [place] ALLIED HEALTHon 05-20-2024 ALLIED HEALTH HNO ID: [id number] Author: BONITA GROSS RDMS Service: ? Author Type: Senior Procurement Specialist Type: Allied Health Filed: 05/20/2024 14:34 Note [...] PATIENT PRESENTS WITH AN IMPLANTABLE OR ATTACHED AIR VALVE MECHANIC: No RADIOLOGY DEPARTMENT: Ultrasound PERIPHERAL IV DATA: Not applicable SIGNED BY: Bonita Gross RDMS May 20, 2024 2:34 PM Normal [facility] CBC panel Auto (Bld)on 05-20 Erythrocyte distribution width (RBC) [Ratio] 13.8 % Normal 11.5-15.0 [facility] Comment on above: Order Comment: David horton Type: BLOOD SPECIMENOrdering Facility: [facility] Address: [address] [place], [place] [address] Performed By: #### 5 8410-2 ####[facility] [id number] [address] Hematocrit (Bld) [Volume fraction] 49.3 % High 36.0-46.0 [facility] Comment on above: Order Comment: David horton Type: BLOOD SPECIMENOrdering Facility: [facility] Address: [address] [place] [address] Performed By: #### 5 8410-2 ####[facility] [id number] [address] [place] Hemoglobin (Bld) [Mass/Vol] 16.3 g/dL High 11.5-15.5 [facility] Comment on above: Order Comment: Speci men Type: BLOOD SPECIMENOrdering Facility: [facility] Address: [address] [place] [address] Performed By: #### 5 8410-2 ####[facility] [id number] [address] [place] MCH (RBC) [Entitic mass] 31.3 pg Normal 26.0-34.0 [facility] Comment on above: Order Comment: Speci men Type: BLOOD SPECIMENOrdering Facility: [facility] Address: [address] [place] [address] Performed By: #### 5 8410-2 ####[facility] [id number] [address] [place] MCHC (RBC) [Mass/Vol] 33.1 g/dL Normal 30.5-36.0 [facility] Comment on above: Order Comment: Speci men Type: BLOOD SPECIMENOrdering Facility: [facility] Address: [address] [place] [address] Performed By: #### 5 8410-2 ####[facility] [id number] [address] [place] MCV (RBC) [Entitic vol] 94.8 fL Normal 80.0-100.0 [facility] Comment on above: Order Comment: Speci men Type: BLOOD SPECIMENOrdering Facility: [facility] Address: [address] [place] [address] Performed By: #### 5 8410-2 ####[facility] [id number] [address] Nucleated RBC (Bld) [#/Vol] 10*3/uL Normal <0.01 [facility] Comment on above: Order Comment: Speci men Type: BLOOD SPECIMENOrdering Facility: [facility] Address: [address] [place] [address] Performed By: #### 5 8410-2 ####[facility] [id number] [address] Platelet mean volume (Bld) [Entitic vol] 9.8 fL Normal 9.0-12.7 [facility] Comment on above: Order Comment: Speci men Type: BLOOD SPECIMENOrdering Facility: [facility] Address: [address] [place] [address] Performed By: #### 5 8410-2 ####[facility] [id number] [address] [place] Platelets (Bld) [#/Vol] 326 10*3/uL Normal 150-400 [facility] Comment on above: Order Comment: Speci men Type: BLOOD SPECIMENOrdering Facility: [facility] Address: [facility] [place] [address] Performed By: #### 5 8410-2 ####[facility] [id number] [place] [address] [place] RBC (Bld) [#/Vol] 5.20 10*6/uL Normal 3.90-5.20 [facility] Comment on above: Order Comment: Speci men Type: BLOOD SPECIMENOrdering Facility: [facility] Address: [address] [place] [address] Performed By: #### 5 8410-2 ####[facility] [id number] [address] [place] WBC (Bld) [#/Vol] 21.90 10*3/uL High 3.70-11.00 [facility] Comment on above: Order Comment: Speci men Type: BLOOD SPECIMENOrdering Facility: [facility] Address: [facility] [place] [address] Performed By: #### 5 8410-2 ####[facility] [id number] [address] CONSULT PROGon 05-20-2024 CONSULT PROG HNO ID: [id number] Author: TATI VANG RPh Service: Pharmacy Author [...] have any questions, please contact pharmacy at [phone]. Age: [age] year old Allergies: ALLERGIES Allergen Reactions Prozac [Fluoxetine * Other: See Comments suicidal ideations Ativan [Lorazepam] Vomiting Azithromycin Intolerance [place] Anaphylaxis [place] Anaphylaxis pickles Fish Anaphylaxis Levofloxacin In D5w [...] Date/Time Value 05/17/2024 1240 14.7 Tati Vang [facility] Normal [facility] Comprehensive metabolic 2000 panelon 05-20-2024 Albumin [Mass/Vol] 4.2 g/dL Normal 3.9-4.9 [facility] Comment on above: Order Comment: Speci men Type: BLOOD SPECIMENOrdering Facility: [facility] Address: [address] [place] [address] Performed By: #### 2 4323-8, 3040-3 ####[facility] [id number] [address] [place] ALP [Catalytic activity/Vol] 228 U/L High 34-123 [facility] Comment on above: Order Comment: Speci men Type: BLOOD SPECIMENOrdering Facility: [facility] Address: [address] [place] [address] Performed By: #### 2 4323-8, 3040-3 ####[facility] [id number] [address] [place] ALT [Catalytic activity/Vol] 50 U/L High 7-38 [facility] Comment on above: Order Comment: Speci men Type: BLOOD SPECIMENOrdering Facility: [facility] Address: [address] [place] [address] Performed By: #### 2 4323-8, 3040-3 ####[facility] [id number] [place] [address] [place] Anion gap [Moles/Vol] 14 mmol/L Normal 8-15 [facility] Comment on above: Order Comment: Speci men Type: BLOOD SPECIMENOrdering Facility: [facility] Address: [address] [place] [address] Performed By: #### 2 4323-8, 3040-3 ####[facility] [id number] [place] [address] [place] AST [Catalytic activity/Vol] 34 U/L Normal 13-35 [facility] Comment on above: Order Comment: Speci men Type: BLOOD SPECIMENOrdering Facility: [facility] Address: [address] [place] [address] Performed By: #### 2 4323-8, 3040-3 ####[facility] [id number] [place] [address] [place] Bilirubin [Mass/Vol] 0.4 mg/dL Normal 0.2-1.3 [facility] Comment on above: Order Comment: Speci men Type: BLOOD SPECIMENOrdering Facility: [facility] Address: [address] [place] [address] Performed By: #### 2 4323-8, 3040-3 ####[facility] [id number] [place] [address] [place] Calcium [Mass/Vol] 10.3 mg/dL High 8.5-10.2 [facility] Comment on above: Order Comment: Speci men Type: BLOOD SPECIMENOrdering Facility: [facility] Address: [address] [place] [address] Performed By: #### 2 4323-8, 3040-3 ####[facility]CL[facility] [id number] [place] [id number] [place] Chloride [Moles/Vol] 94 mmol/L Low 98-107 [facility] Comment on above: Order Comment: Speci men Type: BLOOD SPECIMENOrdering Facility: [facility] Address: [address] [place] [address] Performed By: #### 2 4323-8, 3040-3 ####[facility]CL[facility] [id number] [place] [address] [place] CO2 [Moles/Vol] 25 mmol/L Normal 22-30 [facility] Comment on above: Order Comment: David men Type: BLOOD SPECIMENOrdering Facility: [facility] Address: [address] [place] [address] Performed By: #### 2 4323-8, 3040-3 ####[facility] [id number] [place] [address] [place] Creatinine [Mass/Vol] 0.90 mg/dL Normal 0.58-0.96 [facility] Comment on above: Order Comment: David horton Type: BLOOD SPECIMENOrdering Facility: [facility] Address: [address] [place] [address] Performed By: #### 2 4323-8, 3039-3 ####[facility] [id number] [address] Creatinine and Glomerular filtration rate.predicted panel (S/P/Bld) 81 mL/min/1.73m??? Normal >=60 [facility] Comment on above: Order Comment: David horton Type: BLOOD SPECIMENOrdering Facility: [facility] Address: [address] [place] [address] Result Comment: Sandie mated Glomerular Filtration Rate [...] By: #### 2 4323-8, 3040-3 ####[facility] [id number] [address] [place] Glucose [Mass/Vol] 98 mg/dL Normal 74-99 [facility] Comment on above: Order Comment: David horton Type: BLOOD SPECIMENOrdering Facility: [facility] Address: [address], [place] [address] Result Comment: The [place] Diabetes [employer] (ADA) provides guidance for cutoff [...] Standards of Medical Care in Diabetes 2016, [place] [employer]. Diabetes Care. 2016.39(Suppl 1). Performed By: #### 2 4323-8, 0-3 ####[facility] [id number] [place] [address] [place] Potassium [Moles/Vol] 4.4 mmol/L Normal 3.7-5.1 [facility] Comment on above: Order Comment: Speci men Type: BLOOD SPECIMENOrdering Facility: [facility] Address: [address] [place] [address] Performed By: #### 2 43238, 0-3 ####[facility]CLIA [id number] [place] [address] [place] Protein [Mass/Vol] 7.4 g/dL Normal 6.3-8.0 [facility] Comment on above: Order Comment: Speci men Type: BLOOD SPECIMENOrdering Facility: [facility] Address: [address] [place] [address] Performed By: #### 2 4323-8, 0-3 ####[facility]ORYCLIA [id number] [place] [address] [place] Sodium [Moles/Vol] 133 mmol/L Low 136-144 [facility] Comment on above: Order Comment: Speci men Type: BLOOD SPECIMENOrdering Facility: [facility] Address: [address] [place] [address] Performed By: #### 2 4323-8, 3040-3 ####[facility]ORYCLIA [id number] [place] [id number] [place] Urea nitrogen [Mass/Vol] 18 mg/dL Normal 7-21 [facility] Comment on above: Order Comment: Speci men Type: BLOOD SPECIMENOrdering Facility: [facility] Address: [address] [place], [place] [address] Performed By: #### 2 4323-8, 3040-3 ####[facility]ORYCLIA [id number] [place] [id number] [place] Lipase SerPl-cCncon 05-21-19 25 Lipase [Catalytic activity/Vol] 22 U/L Normal 16-61 [facility] Comment on above: Order Comment: Speci men Type: BLOOD SPECIMENOrdering Facility: [facility] Address: [address] [place] [address] Performed By: #### 2 4323-8, 3040-3 ####[facility]ORYCLIA [id number] [place] [id number] [place] US ABD RIGHT [...] prominence. This is sometimes seen after cholecystectomy. Hydrogenation Operator: KIM Transcribe Date/Time: May 20 2024 2:35P Dictated by : KASIE GREGORY MD This examination was interpreted and the report reviewed and electronically signed by: KASIE GREGORY MD on May 20 2024 2:36PM EST [id number] Normal [facility] ALLIED HEALTHon 05-19-2024 ALLIED HEALTH HNO ID: [id number] Author: ABELARDO LEES CT Service: Radiology Author [...] PATIENT PRESENTS WITH AN IMPLANTABLE OR ATTACHED AIR VALVE MECHANIC: No RADIOLOGY DEPARTMENT: General X-ray: Exam(s) Completed: Chest X-Ray PERIPHERAL IV DATA: Not applicable SIGNED BY: MIRACLE Gomez May 19, 2024 9:56 AM [facility] CBC panel Auto (Bld)on 05-19 Erythrocyte distribution width (RBC) [Ratio] 14.2 % Normal 11.5-15.0 [facility] Comment on above: Order Comment: David horton Type: BLOOD SPECIMEN Ordering Facility: [facility] Address: [address] [place] [address] Performed By: #### 5 8410-2 #### [facility] CLIA [id number] [address] [place] [address] [place] Hematocrit (Bld) [Volume fraction] 52.0 % High 36.0-46.0 [facility] Comment on above: Order Comment: David horton Type: BLOOD SPECIMEN Ordering Facility: [facility] Address: [address] [place] [address] Performed By: #### 5 8410-2 #### [facility] CLIA [id number] [address] [place] [address] [place] Hemoglobin (Bld) [Mass/Vol] 16.6 g/dL High 11.5-15.5 [facility] Comment on above: Order Comment: Speci men Type: BLOOD SPECIMEN Ordering Facility: [facility] Address: [address] [place] [address] Performed By: #### 5 8410-2 #### [facility] CLIA [id number] [address] MCH (RBC) [Entitic mass] 31.3 pg Normal 26.0-34.0 [facility] Comment on above: Order Comment: Speci men Type: BLOOD SPECIMEN Ordering Facility: [facility] Address: [address] [place] [address] Performed By: #### 5 8410-2 #### [facility] CLIA [id number] [address] MCHC (RBC) [Mass/Vol] 31.9 g/dL Normal 30.5-36.0 [facility] Comment on above: Order Comment: Speci men Type: BLOOD SPECIMEN Ordering Facility: [facility] Address: [address] [place] [address] Performed By: #### 5 8410-2 #### [facility] CLIA [id number] [address] MCV (RBC) [Entitic vol] 97.9 fL Normal 80.0-100.0 [facility] Comment on above: Order Comment: Speci men Type: BLOOD SPECIMEN Ordering Facility: [facility] Address: [address] [place] [address] Performed By: #### 5 8410-2 #### [facility] CLIA [id number] [address] Nucleated RBC (Bld) [#/Vol] 10*3/uL Normal <0.01 [facility] Comment on above: Order Comment: Speci men Type: BLOOD SPECIMEN Ordering Facility: [facility] Address: [address] [place] [address] Performed By: #### 5 8410-2 #### [facility] CLIA [id number] [address] Platelet mean volume (Bld) [Entitic vol] 10.3 fL Normal 9.0-12.7 [facility] Comment on above: Order Comment: Speci men Type: BLOOD SPECIMEN Ordering Facility: [facility] Address: [address] [place] [address] Performed By: #### 5 8410-2 #### [facility] CLIA [id number] [address] [place] Platelets (Bld) [#/Vol] 346 10*3/uL Normal 150-400 [facility] Comment on above: Order Comment: Speci men Type: BLOOD SPECIMEN Ordering Facility: [facility] Address: [address] [place] [address] Performed By: #### 5 8410-2 #### [facility] CLIA [id number] [address] [place] RBC (Bld) [#/Vol] 5.31 10*6/uL High 3.90-5.20 [facility] Comment on above: Order Comment: Speci men Type: BLOOD SPECIMEN Ordering Facility: [facility] Address: [address] [place] [address] Performed By: #### 5 8410-2 #### [facility] CLIA [id number] [address] [place] WBC (Bld) [#/Vol] 10.65 10*3/uL Normal 3.70-11.00 [facility] Comment on above: Order Comment: Speci men Type: BLOOD SPECIMEN Ordering Facility: [facility] Address: [address] [place] [address] Performed By: #### 5 8410-2 #### [facility] CLIA [id number] [address] CONSULTon 05-19-2024 CONSULT HNO ID: [id number] Author: LUIS MIGUEL VUONG MD Service: Cardiovascular [...] TRANSVENOUS PACEMAKER INSERTION Apr. 2006 ICD implant, [facility] ANESTHESIA TUBAL LIGATION/TRANSECTION APPENDECTOMY 05/05/2014 [...] 40 mg (more content not included)... Normal [facility] Comprehensive metabolic 2000 panelon 05-19-2024 Albumin [Mass/Vol] 4.5 g/dL Normal 3.9-4.9 [facility] Comment on above: Order Comment: Speci men Type: BLOOD SPECIMEN Ordering Facility: [facility] Address: [address] [place] [address] Performed By: #### 5 8410-2 #### [facility] CLIA [id number] [address] ALP [Catalytic activity/Vol] 277 U/L High 34-123 [facility] Comment on above: Order Comment: Speci men Type: BLOOD SPECIMEN Ordering Facility: [facility] Address: [address] [place] [address] Performed By: #### 5 8410-2 #### [facility] CLIA [id number] [address] ALT [Catalytic activity/Vol] 63 U/L High 7-38 [facility] Comment on above: Order Comment: Speci men Type: BLOOD SPECIMEN Ordering Facility: [facility] Address: [address] [place] [address] Performed By: #### 5 8410-2 #### [facility] CLIA [id number] [address] Anion gap [Moles/Vol] 11 mmol/L Normal 8-15 [facility] Comment on above: Order Comment: Speci men Type: BLOOD SPECIMEN Ordering Facility: [facility] Address: [address] [place] [address] Performed By: #### 5 8410-2 #### [facility] CLIA [id number] [address] AST [Catalytic activity/Vol] 59 U/L High 13-35 [facility] Comment on above: Order Comment: Speci men Type: BLOOD SPECIMEN Ordering Facility: [facility] Address: [address] [place] [address] Performed By: #### 5 8410-2 #### [facility] CLIA [id number] 1000 [place] [address] [place] Bilirubin [Mass/Vol] 0.5 mg/dL Normal 0.2-1.3 [facility] Comment on above: Order Comment: Speci men Type: BLOOD SPECIMEN Ordering Facility: [facility] Address: [address] [place] [address] Performed By: #### 5 8410-2 #### [facility] CLIA [id number] 1000 [place] [address] [place] Calcium [Mass/Vol] 10.1 mg/dL Normal 8.5-10.2 [facility] Comment on above: Order Comment: Speci men Type: BLOOD SPECIMEN Ordering Facility: [facility] Address: [address] [place] [address] Performed By: #### 5 8410-2 #### [facility] CLIA [id number] 1000 [place] [address] [place] Chloride [Moles/Vol] 96 mmol/L Low 98-107 [facility] Comment on above: Order Comment: Speci men Type: BLOOD SPECIMEN Ordering Facility: [facility] Address: [address] [place] [address] Performed By: #### 5 8410-2 #### [facility] CLIA [id number] 1000 [place] [address] [place] CO2 [Moles/Vol] 30 mmol/L Normal 22-30 [facility] Comment on above: Order Comment: Speci men Type: BLOOD SPECIMEN Ordering Facility: [facility] Address: [address] [place] [address] Performed By: #### 5 8410-2 #### [facility] CLIA [id number] 1000 [place] [address] [place] Creatinine [Mass/Vol] 1.04 mg/dL High 0.58-0.96 [facility] Comment on above: Order Comment: Speci men Type: BLOOD SPECIMEN Ordering Facility: [facility] Address: [address] [place] [address] Performed By: #### 5 8410-2 #### [facility] CLIA [id number] [address] Creatinine and Glomerular filtration rate.predicted panel (S/P/Bld) 68 mL/min/1.73m??? Normal >=60 [facility] Comment on above: Order Comment: David horton Type: BLOOD SPECIMEN Ordering Facility: [facility] Address: [address] [place] [address] Result Comment: Sandie mated Glomerular Filtration Rate [...] GFR. Performed By: #### 5 8410-2 #### [facility] CLIA [id number] [address] [place] Glucose [Mass/Vol] 79 mg/dL Normal 74-99 [facility] Comment on above: Order Comment: David horton Type: BLOOD SPECIMEN Ordering Facility: [facility] Address: [address] [place] [address] Result Comment: The [place] [employer] (ADA) provides guidance for cutoff [...] Standards of Medical Care in Diabetes 2016, [place] [employer]. Diabetes Care. 2016.39(Suppl 1). Performed By: #### 5 8410-2 #### [facility] CLIA [id number] [address] Potassium [Moles/Vol] 4.1 mmol/L Normal 3.7-5.1 [facility] Comment on above: Order Comment: Speci men Type: BLOOD SPECIMEN Ordering Facility: [facility] Address: [address] [place] [address] Performed By: #### 5 8410-2 #### [facility] CLIA [id number] [address] Protein [Mass/Vol] 8.0 g/dL Normal 6.3-8.0 [facility] Comment on above: Order Comment: Speci men Type: BLOOD SPECIMEN Ordering Facility: [facility] Address: [address] [place] [address] Performed By: #### 5 8410-2 #### [facility] CLIA [id number] [address] Sodium [Moles/Vol] 137 mmol/L Normal 136-144 [facility] Comment on above: Order Comment: Speci men Type: BLOOD SPECIMEN Ordering Facility: [facility] Address: [address] [place] [address] Performed By: #### 5 8410-2 #### [facility] CLIA [id number] [address] Urea nitrogen [Mass/Vol] 20 mg/dL Normal 7-21 [facility] Comment on above: Order Comment: Speci men Type: BLOOD SPECIMEN Ordering Facility: [facility] Address: [address] [place] [address] Performed By: #### 5 8410-2 #### [facility] CLIA [id number] [address] [place] NURSING PROGon 05-19-2024 NURSING PROG HNO ID: [id number] Author: CYNTHIA CADE, JAJA Service: ? Author Type: Registered Nurse Type: Nursing Progress Note Filed: 05/19/2024 05:09 Note Text: Other: 0508 refused new IV start ,even though her IV sluggish. Patient educated about keeping old IV in . Doesn't want it removed at this time. Normal [facility] XR CHEST 2V FRONTAL/LATon XR CHEST 2V [...] tissues: Unremarkable. IMPRESSION: No acute radiographic abnormality. Hydrogenation Operator: PSYCHIATRIC Transcribe Date/Time: May 19 2024 10:00A Dictated by : PATRICIA MCCARTNEY MD This examination was interpreted and the report reviewed and electronically signed by: PATRICIA MCCARTNEY MD on May 19 2024 10:03AM EST [id number] Normal [facility] CBC panel Auto (Bld)on 05-18 Erythrocyte distribution width (RBC) [Ratio] 14.2 % Normal 11.5-15.0 [facility] Comment on above: Order Comment: David horton Type: BLOOD SPECIMENOrdering Facility: [facility] Address: [address] [place] [address] Performed By: #### 5 8410-2 ####[facility] [id number] [address] [place] Hematocrit (Bld) [Volume fraction] 45.5 % Normal 36.0-46.0 [facility] Comment on above: Order Comment: David horton Type: BLOOD SPECIMENOrdering Facility: [facility] Address: [address] [place] [address] Performed By: #### 5 8410-2 ####[facility] [id number] [place] [address] [place] Hemoglobin (Bld) [Mass/Vol] 15.3 g/dL Normal 11.5-15.5 [facility] Comment on above: Order Comment: Speci men Type: BLOOD SPECIMENOrdering Facility: [facility] Address: [address] [place] [address] Performed By: #### 5 8410-2 ####[facility] [id number] [place] [address] [place] MCH (RBC) [Entitic mass] 32.0 pg Normal 26.0-34.0 [facility] Comment on above: Order Comment: Speci men Type: BLOOD SPECIMENOrdering Facility: [facility] Address: [address] [place] [address] Performed By: #### 5 8410-2 ####[facility] [id number] [place] [address] [place] MCHC (RBC) [Mass/Vol] 33.6 g/dL Normal 30.5-36.0 [facility] Comment on above: Order Comment: Speci men Type: BLOOD SPECIMENOrdering Facility: [facility] Address: [address] [place] [address] Performed By: #### 5 8410-2 ####[facility] [id number] [address] [place] MCV (RBC) [Entitic vol] 95.2 fL Normal 80.0-100.0 M [facility] Comment on above: Order Comment: Speci men Type: BLOOD SPECIMENOrdering Facility: [facility] Address: [address] [place] [address] Performed By: #### 5 8410-2 ####[facility] [id number] [place] [address] [place] Nucleated RBC (Bld) [#/Vol] 10*3/uL Normal <0.01 [facility] Comment on above: Order Comment: Speci men Type: BLOOD SPECIMENOrdering Facility: [facility] Address: [address] [place] [address] Performed By: #### 5 8410-2 ####[facility] [id number] [place] [address] [place] Platelet mean volume (Bld) [Entitic vol] 10.7 fL Normal 9.0-12.7 [facility] Comment on above: Order Comment: Speci men Type: BLOOD SPECIMENOrdering Facility: [facility] Address: [address] [place] [address] Performed By: #### 5 8410-2 ####[facility] [id number] [place] [id number] [place] Platelets (Bld) [#/Vol] 293 10*3/uL Normal 150-400 [facility] Comment on above: Order Comment: Speci men Type: BLOOD SPECIMENOrdering Facility: [facility] Address: [address] [place] [address] Performed By: #### 5 8410-2 ####[facility] [id number] [place] [address] [place] RBC (Bld) [#/Vol] 4.78 10*6/uL Normal 3.90-5.20 [facility] Comment on above: Order Comment: Speci men Type: BLOOD SPECIMENOrdering Facility: [facility] Address: [address] [place] [address] Performed By: #### 5 8410-2 ####[facility] [id number] [place] [address] [place] WBC (Bld) [#/Vol] 9.76 10*3/uL Normal 3.70-11.00 [facility] Comment on above: Order Comment: Speci men Type: BLOOD SPECIMENOrdering Facility: [facility] Address: [address] [place] [address] Performed By: #### 5 8410-2 ####[facility] [id number] [place] [id number] [facility] [place] Comprehensive metabolic 2000 panelon 05-18-2024 Albumin [Mass/Vol] 3.9 g/dL Normal 3.9-4.9 [facility] Comment on above: Order Comment: Speci men Type: BLOOD SPECIMENOrdering Facility: [facility] Address: [address] [place] [address] Performed By: #### 2 4323-8 ####[facility] [id number] [address] [place] ALP [Catalytic activity/Vol] 249 U/L High 34-123 [facility] Comment on above: Order Comment: Speci men Type: BLOOD SPECIMENOrdering Facility: [facility] Address: [address] [place] [address] Performed By: #### 2 4323-8 ####[facility] [id number] [place] [address] [place] ALT [Catalytic activity/Vol] 60 U/L High 7-38 [facility] Comment on above: Order Comment: Speci men Type: BLOOD SPECIMENOrdering Facility: [facility] Address: [address] [place] [address] Performed By: #### 2 4323-8 ####[facility] [id number] [address] [place] [facility] Anion gap [Moles/Vol] 12 mmol/L Normal 8-15 [facility] Comment on above: Order Comment: Speci men Type: BLOOD SPECIMENOrdering Facility: [facility] Address: [address] [place] [address] Performed By: #### 2 4323-8 ####[facility] [id number] [address] [place] AST [Catalytic activity/Vol] 41 U/L High 13-35 [facility] Comment on above: Order Comment: Speci men Type: BLOOD SPECIMENOrdering Facility: [facility] Address: [address] [place] [address] Performed By: #### 2 4323-8 ####[facility] [id number] [address] [place] Bilirubin [Mass/Vol] 0.5 mg/dL Normal 0.2-1.3 [facility] Comment on above: Order Comment: Speci men Type: BLOOD SPECIMENOrdering Facility: [facility] Address: [facility] [place] [address] Performed By: #### 2 4323-8 ####[facility] [id number] [place] [address] [place] Calcium [Mass/Vol] 9.4 mg/dL Normal 8.5-10.2 [facility] Comment on above: Order Comment: Speci men Type: BLOOD SPECIMENOrdering Facility: [facility] Address: [address] [place] [address] Performed By: #### 2 4323-8 ####[facility] [id number] [place] [address] [place] Chloride [Moles/Vol] 100 mmol/L Normal 98-107 [facility] Comment on above: Order Comment: Speci men Type: BLOOD SPECIMENOrdering Facility: [facility] Address: [address] [place] [address] Performed By: #### 2 4323-8 ####[facility] [id number] [place] [address] [place] CO2 [Moles/Vol] 22 mmol/L Normal 22-30 [facility] Comment on above: Order Comment: Speci men Type: BLOOD SPECIMENOrdering Facility: [facility] Address: [address] [place] [address] Performed By: #### 2 4323-8 ####[facility] [id number] [place] [address] [place] Creatinine [Mass/Vol] 1.00 mg/dL High 0.58-0.96 [facility] Comment on above: Order Comment: Speci men Type: BLOOD SPECIMENOrdering Facility: [facility] Address: [address] [place] [address] Performed By: #### 2 4323-8 ####[facility] [id number] [address] Creatinine and Glomerular filtration rate.predicted panel (S/P/Bld) 71 mL/min/1.73m??? Normal >=60 [facility] Comment on above: Order Comment: Speci men Type: BLOOD SPECIMENOrdering Facility: [facility] Address: [address] [place] [address] Result Comment: Sandie mated Glomerular Filtration Rate [...] Performed By: #### 2 4323-8 ####[facility] [id number] [place] [id number] [place] Glucose [Mass/Vol] 87 mg/dL Normal 74-99 [facility] Comment on above: Order Comment: David horton Type: BLOOD SPECIMENOrdering Facility: [facility] Address: [address] [place] [address] Result Comment: The [place] [employer] (ADA) provides guidance for cutoff [...] Standards of Medical Care in Diabetes 2016, [place] [employer]. Diabetes Care. 2016.39(Suppl 1). Performed By: #### 2 4323-8 ####[facility] [id number] [place] [id number] [place] Potassium [Moles/Vol] 4.7 mmol/L Normal 3.7-5.1 [facility] Comment on above: Order Comment: David horton Type: BLOOD SPECIMENOrdering Facility: [facility] Address: [address] [facility] [place] [id number] Performed By: #### 2 4323-8 ####[facility]ORYCLIA [id number] [place] [address] [place] Protein [Mass/Vol] 6.9 g/dL Normal 6.3-8.0 [facility] Comment on above: Order Comment: Speci men Type: BLOOD SPECIMENOrdering Facility: [facility] Address: [address] [place] [address] Performed By: #### 2 4323-8 ####[facility] [id number] [address] [place] [facility] Sodium [Moles/Vol] 134 mmol/L Low 136-144 [facility] Comment on above: Order Comment: Speci men Type: BLOOD SPECIMENOrdering Facility: [facility] Address: [address] [place] [address] Performed By: #### 2 4323-8 ####[facility] [id number] [address] [place] Urea nitrogen [Mass/Vol] 17 mg/dL Normal 7-21 [facility] Comment on above: Order Comment: Speci men Type: BLOOD SPECIMENOrdering Facility: [facility] Address: [address] [place] [address] Performed By: #### 2 4323-8 ####[facility] [id number] [address] [place] [facility] CBC panel Auto (Bld)on 05-17 Erythrocyte distribution width (RBC) [Ratio] 14.3 % Normal 11.5-15.0 [facility] Comment on above: Order Comment: Speci men Type: BLOOD SPECIMENOrdering Facility: [facility] Address: [address] [place] [address] Performed By: #### 5 8410-2 ####[facility] [id number] [address] Hematocrit (Bld) [Volume fraction] 42.1 % Normal 36.0-46.0 [facility] Comment on above: Order Comment: Speci men Type: BLOOD SPECIMENOrdering Facility: [facility] Address: [address] [place] [address] Performed By: #### 5 8410-2 ####[facility] [id number] [address] Hemoglobin (Bld) [Mass/Vol] 13.7 g/dL Normal 11.5-15.5 [facility] Comment on above: Order Comment: Speci men Type: BLOOD SPECIMENOrdering Facility: [facility] Address: [address] [place] [address] Performed By: #### 5 8410-2 ####[facility] [id number] [address] [place] MCH (RBC) [Entitic mass] 31.7 pg Normal 26.0-34.0 [facility] Comment on above: Order Comment: Speci men Type: BLOOD SPECIMENOrdering Facility: [facility] Address: [address] [place] [address] Performed By: #### 5 8410-2 ####[facility] [id number] [address] MCHC (RBC) [Mass/Vol] 32.5 g/dL Normal 30.5-36.0 [facility] Comment on above: Order Comment: Speci men Type: BLOOD SPECIMENOrdering Facility: [facility] Address: [address] [place] [address] Performed By: #### 5 8410-2 ####[facility] [id number] [address] MCV (RBC) [Entitic vol] 97.5 fL Normal 80.0-100.0 M [facility] Comment on above: Order Comment: Speci men Type: BLOOD SPECIMENOrdering Facility: [facility] Address: [address] [place] [address] Performed By: #### 5 8410-2 ####[facility] [id number] [address] [place] Nucleated RBC (Bld) [#/Vol] 10*3/uL Normal <0.01 [facility] Comment on above: Order Comment: Speci men Type: BLOOD SPECIMENOrdering Facility: [facility] Address: [address] [place] [address] Performed By: #### 5 8410-2 ####[facility] [id number] [address] Platelet mean volume (Bld) [Entitic vol] 10.5 fL Normal 9.0-12.7 [facility] Comment on above: Order Comment: Speci men Type: BLOOD SPECIMENOrdering Facility: [facility] Address: [address] [place] [address] Performed By: #### 5 8410-2 ####[facility]ORYCLIA [id number] [place] [address] [facility] [place] Platelets (Bld) [#/Vol] 265 10*3/uL Normal 150-400 [facility] Comment on above: Order Comment: Speci men Type: BLOOD SPECIMENOrdering Facility: [facility] Address: [address] [place] [address] Performed By: #### 5 8410-2 ####[facility]ORYCLIA [id number] [address] RBC (Bld) [#/Vol] 4.32 10*6/uL Normal 3.90-5.20 [facility] Comment on above: Order Comment: Speci men Type: BLOOD SPECIMENOrdering Facility: [facility] Address: [address] [place] [address] Performed By: #### 5 8410-2 ####[facility]ORYCLIA [id number] [address] [place] WBC (Bld) [#/Vol] 9.33 10*3/uL Normal 3.70-11.00 [facility] Comment on above: Order Comment: Speci men Type: BLOOD SPECIMENOrdering Facility: [facility] Address: [address] [place] [address] Performed By: #### 5 8410-2 ####[facility]ORYCLIA [id number] [address] CONSULTon 05-17-2024 CONSULT HNO ID: [id number] Author: JOSIE OVALLES APRN.WHEEL AND PINION INSPECTOR Service: Wound/Ostomy Author Type: Nurse Practitioner Type: [...] PERMANENT TRANSVENOUS PACEMAKER INSERTION 2006 ICD implant, [facility] ANESTHESIA TUBAL LIGATION/TRANSECTION APPENDECTOMY 05/05/2014 [...] 20 mL INTRAVENOUS (more content not included)... [facility] CONSULT PROGon 05-17-2024 CONSULT PROG HNO ID: [id number] Author: SALLIE WILKERSON RPh Service: Pharmacy Author [...] have any questions, please contact pharmacy at 5519. Age: [age] year old Allergies: ALLERGIES Allergen Reactions Prozac [Fluoxetine * Other: See Comments suicidal ideations Ativan [Lorazepam] Vomiting Azithromycin Intolerance [place] Anaphylaxis [place] Anaphylaxis pickles Fish Anaphylaxis Levofloxacin In D5w [...] Date/Time Value 05/17/2024 1240 14.7 Sallie Wilkerson [facility] Normal [facility] Comprehensive metabolic 2000 panelon 05-17-2024 Albumin [Mass/Vol] 4.0 g/dL Normal 3.9-4.9 [facility] Comment on above: Order Comment: Speci men Type: BLOOD SPECIMENOrdering Facility: [facility] Address: [address] [place] [address] Performed By: #### 2 4323-8 ####[facility]ORYCLIA [id number] [address] [place] ALP [Catalytic activity/Vol] 249 U/L High 34-123 [facility] Comment on above: Order Comment: Speci men Type: BLOOD SPECIMENOrdering Facility: [facility] Address: [address] [place] [address] Performed By: #### 2 4323-8 ####[facility]ATORYCLIA [id number] [place] [address] [place] ALT [Catalytic activity/Vol] 58 U/L High 7-38 [facility] Comment on above: Order Comment: Speci men Type: BLOOD SPECIMENOrdering Facility: [facility] Address: [address] [place] [address] Performed By: #### 2 4323-8 ####[facility]ATORYCLIA [id number] [place] [address] [facility] Anion gap [Moles/Vol] 10 mmol/L Normal 8-15 [facility] Comment on above: Order Comment: Speci men Type: BLOOD SPECIMENOrdering Facility: [facility] Address: [facility] [place] [address] Performed By: #### 2 4323-8 ####[facility]ORYCLIA [id number] [address] [place] AST [Catalytic activity/Vol] 47 U/L High 13-35 [facility] Comment on above: Order Comment: Speci men Type: BLOOD SPECIMENOrdering Facility: [facility] Address: [address] [place] [address] Performed By: #### 2 4323-8 ####[facility]ATORYCLIA [id number] [address] [place] Bilirubin [Mass/Vol] 0.6 mg/dL Normal 0.2-1.3 [facility] Comment on above: Order Comment: Speci men Type: BLOOD SPECIMENOrdering Facility: [facility] Address: [address] [place] [address] Performed By: #### 2 4323-8 ####[facility]ATORYCLIA [id number] [address] Calcium [Mass/Vol] 9.1 mg/dL Normal 8.5-10.2 [facility] Comment on above: Order Comment: Speci men Type: BLOOD SPECIMENOrdering Facility: [facility] Address: [address] [place] [address] Performed By: #### 2 4323-8 ####[facility]ATORYCLIA [id number] [address] [place] [facility] Chloride [Moles/Vol] 99 mmol/L Normal 98-107 [facility] Comment on above: Order Comment: Speci men Type: BLOOD SPECIMENOrdering Facility: [facility] Address: [address] [place] [address] Performed By: #### 2 4323-8 ####[facility]ATORYCLIA [id number] [address] [place] CO2 [Moles/Vol] 25 mmol/L Normal 22-30 [facility] Comment on above: Order Comment: Speci men Type: BLOOD SPECIMENOrdering Facility: [facility] Address: [address] [place] [address] Performed By: #### 2 4323-8 ####[facility]ORATORYCLIA [id number] [address] Creatinine [Mass/Vol] 0.87 mg/dL Normal 0.58-0.96 [facility] Comment on above: Order Comment: Speci men Type: BLOOD SPECIMENOrdering Facility: [facility] Address: [address] [place] [address] Performed By: #### 2 4323-8 ####[facility]ORATORYCLIA [id number] [address] Creatinine and Glomerular filtration rate.predicted panel (S/P/Bld) 84 mL/min/1.73m??? Normal >=60 [facility] Comment on above: Order Comment: Speci men Type: BLOOD SPECIMENOrdering Facility: [facility] Address: [address] [place] [address] Result Comment: Sandie mated Glomerular Filtration Rate [...] Performed By: #### 2 4323-8 ####[facility] LABORATORYCLIA [id number] [place] [address] [place] Glucose [Mass/Vol] 97 mg/dL Normal 74-99 [facility] Comment on above: Order Comment: David horton Type: BLOOD SPECIMENOrdering Facility: [facility] Address: [address] [place] [address] Result Comment: The [place] Diabetes [employer] (ADA) provides guidance for cutoff [...] Standards of Medical Care in Diabetes 2016, [place] [employer]. Diabetes Care. 2016.39(Suppl 1). Performed By: #### 2 4323-8 ####[facility]ORATORYCLIA [id number] [place] [address] [place] Potassium [Moles/Vol] 4.6 mmol/L Normal 3.7-5.1 [facility] Comment on above: Order Comment: David horton Type: BLOOD SPECIMENOrdering Facility: [facility] Address: [address] [place] [address] Performed By: #### 2 4323-8 ####[facility] LABORATORYCLIA [id number] [place] [address] [place] Protein [Mass/Vol] 6.7 g/dL Normal 6.3-8.0 [facility] Comment on above: Order Comment: David men Type: BLOOD SPECIMENOrdering Facility: [facility] Address: [address] [place] [address] Performed By: #### 2 4323-8 ####[facility] LABORATORYCLIA [id number] [place] [address] [place] Sodium [Moles/Vol] 134 mmol/L Low 136-144 [facility] Comment on above: Order Comment: Speci men Type: BLOOD SPECIMENOrdering Facility: [facility] Address: [address] [place] [address] Performed By: #### 2 4323-8 ####[facility] LABORATORYCLIA [id number] [address] [place] [facility] Urea nitrogen [Mass/Vol] 12 mg/dL Normal 7-21 [facility] Comment on above: Order Comment: Speci men Type: BLOOD SPECIMENOrdering Facility: [facility] Address: [address] [place] [address] Performed By: #### 2 4323-8 ####[facility] LABORATORYCLIA [id number] [address] [place] Vancomycin Waymart SerPl-mCncon 05-17-2024 Vancomycin random [Mass/Vol] 14.7 ug/mL Normal 10.0-20.0 [facility] Comment on above: Order Comment: Speci men Type: BLOOD SPECIMEN Ordering Facility: [facility] Address: [address] [place] [address] Result Comment: Refe rence ranges and high/low indicator flags are provided as general guidelines only. The treating physician must determine appropriate target levels/dosing based on the specific clinical situation. Performed By: #### 5 8410-2 #### [facility] CLIA [id number] [address] CBC panel Auto (Bld)on 05-16 Erythrocyte distribution width (RBC) [Ratio] 14.5 % Normal 11.5-15.0 [facility] Comment on above: Order Comment: Speci men Type: BLOOD SPECIMENOrdering Facility: [facility] Address: [address] [place] [address] Performed By: #### 5 8410-2 ####[facility] LABORATORYCLIA [id number] [address] Hematocrit (Bld) [Volume fraction] 37.8 % Normal 36.0-46.0 [facility] Comment on above: Order Comment: Speci men Type: BLOOD SPECIMENOrdering Facility: [facility] Address: [address] [place] [address] Performed By: #### 5 8410-2 ####[facility] LABORATORYCLIA [id number] [address] [place] Hemoglobin (Bld) [Mass/Vol] 12.6 g/dL Normal 11.5-15.5 [facility] Comment on above: Order Comment: Speci men Type: BLOOD SPECIMENOrdering Facility: [facility] Address: [address] [place] [address] Performed By: #### 5 8410-2 ####[facility] LABORATORYCLIA [id number] [address] [place] MCH (RBC) [Entitic mass] 32.2 pg Normal 26.0-34.0 [facility] Comment on above: Order Comment: Speci men Type: BLOOD SPECIMENOrdering Facility: [facility] Address: [address] [place] [address] Performed By: #### 5 8410-2 ####[facility] LABORATORYCLIA [id number] [address] MCHC (RBC) [Mass/Vol] 33.3 g/dL Normal 30.5-36.0 [facility] Comment on above: Order Comment: Speci men Type: BLOOD SPECIMENOrdering Facility: [facility] Address: [address] [place] [address] Performed By: #### 5 8410-2 ####[facility] LABORATORYCLIA [id number] [address] MCV (RBC) [Entitic vol] 96.7 fL Normal 80.0-100.0 [facility] Comment on above: Order Comment: Speci men Type: BLOOD SPECIMENOrdering Facility: [facility] Address: [address] [place] [address] Performed By: #### 5 8410-2 ####[facility]ORATORYCLIA [id number] [address] Nucleated RBC (Bld) [#/Vol] 10*3/uL Normal <0.01 [facility] Comment on above: Order Comment: Speci men Type: BLOOD SPECIMENOrdering Facility: [facility] Address: [address] [place] [address], [place] [address] Performed By: #### 5 8410-2 ####[facility] LABORATORYCLIA [id number] [place] [address] [place] Platelet mean volume (Bld) [Entitic vol] 10.5 fL Normal 9.0-12.7 [facility] Comment on above: Order Comment: Speci men Type: BLOOD SPECIMENOrdering Facility: [facility] Address: [facility] [place] [address] Performed By: #### 5 8410-2 ####[facility] LABORATORYCLIA [id number] [place] [address] [place] Platelets (Bld) [#/Vol] 234 10*3/uL Normal 150-400 [facility] Comment on above: Order Comment: Speci men Type: BLOOD SPECIMENOrdering Facility: [facility] Address: [address] [place] [address] Performed By: #### 5 8410-2 ####[facility] LABORATORYCLIA [id number] [place] [address] [place] RBC (Bld) [#/Vol] 3.91 10*6/uL Normal 3.90-5.20 [facility] Comment on above: Order Comment: Speci men Type: BLOOD SPECIMENOrdering Facility: [facility] Address: [address] [place] [address] Performed By: #### 5 8410-2 ####[facility] LABORATORYCLIA [id number] [place] [address] [place] WBC (Bld) [#/Vol] 6.77 10*3/uL Normal 3.70-11.00 [facility] Comment on above: Order Comment: Speci men Type: BLOOD SPECIMENOrdering Facility: [facility] Address: [address] [place] [address] Performed By: #### 5 8410-2 ####[facility] LABORATORYCLIA [id number] [address] [place] CONSULT PROGon 05-16-2024 CONSULT PROG HNO ID: [id number] Author: ALYCIA LEES RPh Service: Pharmacy Author [...] have any questions, please contact pharmacy at [phone]. Age: [age] year old Allergies: ALLERGIES Allergen Reactions Prozac [Fluoxetine * Other: See Comments suicidal ideations Ativan [Lorazepam] Vomiting Azithromycin Intolerance [place] Anaphylaxis [place] Anaphylaxis pickles Fish Anaphylaxis Levofloxacin In D5w [...] Levels: No results found for: ALICIA Lees, [facility] Normal [facility] Comprehensive metabolic 2000 panelon 05-16-2024 Albumin [Mass/Vol] 3.6 g/dL Low 3.9-4.9 [facility] Comment on above: Order Comment: Speci men Type: BLOOD SPECIMEN [facility]ing Facility: [facility] Address: [address] [place] [address] Performed By: #### 5 8410-2 #### [facility] CLIA [id number] [address] ALP [Catalytic activity/Vol] 212 U/L High 34-123 [facility] Comment on above: Order Comment: Speci men Type: BLOOD SPECIMEN [facility]ing Facility: [facility] Address: [address] [place] [address] Performed By: #### 5 8410-2 #### [facility] CLIA [id number] [address] ALT [Catalytic activity/Vol] 49 U/L High 7-38 [facility] Comment on above: Order Comment: Speci men Type: BLOOD SPECIMEN [facility]ing Facility: [facility] Address: [address] [place] [address] Performed By: #### 5 8410-2 #### [facility] CLIA [id number] [address] Anion gap [Moles/Vol] 10 mmol/L Normal 8-15 [facility] Comment on above: Order Comment: Speci men Type: BLOOD SPECIMEN [facility]ing Facility: [facility] Address: [address] [place] [address] Performed By: #### 5 8410-2 #### [facility] CLIA [id number] 1000 [place] [address] [place] AST [Catalytic activity/Vol] 57 U/L High 13-35 [facility] Comment on above: Order Comment: Speci men Type: BLOOD SPECIMEN [facility]ing Facility: [facility] Address: [address] [place] [address] Performed By: #### 5 8410-2 #### [facility] CLIA [id number] 1000 [place] [address] [place] Bilirubin [Mass/Vol] 0.7 mg/dL Normal 0.2-1.3 [facility] Comment on above: Order Comment: Speci men Type: BLOOD SPECIMEN Ordering Facility: [facility] Address: [address] [place] [address] Performed By: #### 5 8410-2 #### [facility] CLIA [id number] 1000 [place] [address] [place] Calcium [Mass/Vol] 8.9 mg/dL Normal 8.5-10.2 [facility] Comment on above: Order Comment: Speci men Type: BLOOD SPECIMEN Ordering Facility: [facility] Address: [address] [place] [address] Performed By: #### 5 8410-2 #### [facility] CLIA [id number] 1000 [place] [address] [place] Chloride [Moles/Vol] 105 mmol/L Normal 98-107 [facility] Comment on above: Order Comment: Speci men Type: BLOOD SPECIMEN Ordering Facility: [facility] Address: [address] [place] [address] Performed By: #### 5 8410-2 #### [facility] CLIA [id number] 1000 [place] [address] [place] CO2 [Moles/Vol] 22 mmol/L Normal 22-30 [facility] Comment on above: Order Comment: Speci men Type: BLOOD SPECIMEN Ordering Facility: [facility] Address: [address] [place] [address] Performed By: #### 5 8410-2 #### [facility] CLIA [id number] [address] [place] Creatinine [Mass/Vol] 0.82 mg/dL Normal 0.58-0.96 [facility] Comment on above: Order Comment: David horton Type: BLOOD SPECIMEN Ordering Facility: [facility] Address: [address] [place] [address] Performed By: #### 5 8410-2 #### [facility] CLIA [id number] [address] Creatinine and Glomerular filtration rate.predicted panel (S/P/Bld) 91 mL/min/1.73m??? Normal >=60 [facility] Comment on above: Order Comment: David horton Type: BLOOD SPECIMEN Ordering Facility: [facility] Address: [address] [place] [address] Result Comment: Sandie mated Glomerular Filtration Rate [...] GFR. Performed By: #### 5 8410-2 #### [facility] CLIA [id number] [address] [facility] Glucose [Mass/Vol] 79 mg/dL Normal 74-99 [facility] Comment on above: Order Comment: David horton Type: BLOOD SPECIMEN Ordering Facility: [facility] Address: [address] [place] [address] Result Comment: The [place] [employer] (ADA) provides guidance for cutoff [...] Standards of Medical Care in Diabetes 2016, [place] [employer]. Diabetes Care. 2016.39(Suppl 1). Performed By: #### 5 8410-2 #### [facility] CLIA [id number] [address] Potassium [Moles/Vol] 4.4 mmol/L Normal 3.7-5.1 [facility] Comment on above: Order Comment: Kianai men Type: BLOOD SPECIMEN [facility] Facility: [facility] Address: [address] [place] [address] Performed By: #### 5 8410-2 #### [facility] CLIA [id number] [address] Protein [Mass/Vol] 6.0 g/dL Low 6.3-8.0 [facility] Comment on above: Order Comment: David horton Type: BLOOD SPECIMEN [facility]ing Facility: [facility] Address: [address] [place] [address] Performed By: #### 5 8410-2 #### [facility] CLIA [id number] [address] Sodium [Moles/Vol] 137 mmol/L Normal 136-144 [facility] Comment on above: Order Comment: David horton Type: BLOOD SPECIMEN [facility]ing Facility: [facility] Address: [address] [place] [address] Performed By: #### 5 8410-2 #### [facility] CLIA [id number] [address] STATES [facility] Urea nitrogen [Mass/Vol] 12 mg/dL Normal 7-21 [facility] Comment on above: Order Comment: Kianai men Type: BLOOD SPECIMEN Ordering Facility: [facility] Address: [address] [place] [address] Performed By: #### 5 8410-2 #### [facility] CLIA [id number] [address] HIGH SENSITIVITY TROPONIN To n 05-16-2024 Troponin T.cardiac High sensitivity method [Mass/Vol] 25 ng/L High <12 [facility] Comment on above: Order Comment: Speci men Type: BLOOD SPECIMEN Ordering Facility: [facility] Address: [address] [place] [address] Performed By: #### 5 8410-2 #### [facility] CLIA [id number] [address] [place] [address] [place] ALLIED HEALTHon 05-15-2024 ALLIED HEALTH HNO ID: [id number] Author: ABELARDO LEES CT Service: Radiology Author [...] PATIENT PRESENTS WITH AN IMPLANTABLE OR ATTACHED AIR VALVE MECHANIC: No RADIOLOGY DEPARTMENT: General X-ray: Exam(s) Completed: Chest X-Ray PERIPHERAL IV DATA: Not applicable SIGNED BY: MIRACLE Gomez May 15, 2024 12:01 PM [facility] HNO ID: [id number] Author: DOMINGUEZ BEGUM RT(R) Service: Radiology Author Type: Technologist Type: Allied Health Filed: 05/15/2024 11:22 Note Text: MEDIC @ BS GETTING LABS, IMAGING ORDER OUTSTANDING [facility] Bacteria Bld Culton 05-16-19 25 Bacteria identified Cx Nom (Bld) CULTURE, BLOOD: No growth 5 days GRAM STAIN: This blood culture had less than the recommended 8 ml per bottle, which could decrease the sensitivity of the test. [facility] Comment on above: Performed By: #### 6 00-7 ####[facility] LABCL[facility] [id number] [address] [place] Bacteria identified Cx Nom (Bld) CULTURE, BLOOD: No growth 5 days GRAM STAIN: This blood culture had less than the recommended 8 ml per bottle, which could decrease the sensitivity of the test. Normal [facility] Comment on above: Performed By: #### 6 00-7 ####[facility] LABCLIA [id number] [address] Bacteria Wnd Culton 05-16-19 25 Bacteria identified Cx Nom (Wound) CULTURE, WOUND: No growth GRAM STAIN: Rare Gram positive cocci Many Polymorphonuclear leukocytes Abnormal [facility] Comment on above: Performed By: #### 6 462-6 ####[facility] LABCLIA [id number] [place] [address] [place] CBC W Auto Differential pane l (Bld)on 05-15-2024 Basophils (Bld) [#/Vol] 0.08 10*3/uL Normal <0.11 [facility] Comment on above: Order Comment: Speci men Type: BLOOD SPECIMENOrdering Facility: [facility] Address: [address] [place] [address] Performed By: #### 5 7021-8 ####[facility]ORYCLIA [id number] [address] [place] Basophils/100 WBC (Bld) 0.9 % Normal [facility] Comment on above: Order Comment: Speci men Type: BLOOD SPECIMENOrdering Facility: [facility] Address: [address] [place] [address] Performed By: #### 5 7021-8 ####[facility]ORYCLIA [id number] [address] [place] [facility] Differential cell count method Nom (Bld) Auto Normal [facility] Comment on above: Order Comment: Speci men Type: BLOOD SPECIMENOrdering Facility: [facility] Address: [address] [place] [address] Performed By: #### 5 7021-8 ####[facility]ORYCLIA [id number] [address] [place] Eosinophils (Bld) [#/Vol] 0.10 10*3/uL Normal <0.46 [facility] Comment on above: Order Comment: Speci men Type: BLOOD SPECIMENOrdering Facility: [facility] Address: [address] [place] [address] Performed By: #### 5 7021-8 ####[facility]ORYCLIA [id number] [address] [place] Eosinophils/100 WBC (Bld) 1.1 % Normal [facility] Comment on above: Order Comment: Speci men Type: BLOOD SPECIMENOrdering Facility: [facility] Address: [address] [place] [address] Performed By: #### 5 7021-8 ####[facility]ORYCLIA [id number] [address] Erythrocyte distribution width (RBC) [Ratio] 14.4 % Normal 11.5-15.0 [facility] Comment on above: Order Comment: Speci men Type: BLOOD SPECIMENOrdering Facility: [facility] Address: [address] [place] [address] Performed By: #### 5 7021-8 ####[facility]ORYCLIA [id number] [address] Hematocrit (Bld) [Volume fraction] 44.8 % Normal 36.0-46.0 [facility] Comment on above: Order Comment: Speci men Type: BLOOD SPECIMENOrdering Facility: [facility] Address: [address] [place] [address] Performed By: #### 5 7021-8 ####[facility]ORYCLIA [id number] [address] [place] Hemoglobin (Bld) [Mass/Vol] 14.5 g/dL Normal 11.5-15.5 [facility] Comment on above: Order Comment: Speci men Type: BLOOD SPECIMENOrdering Facility: [facility] Address: [address] [place] [address] Performed By: #### 5 7021-8 ####[facility]ORYCLIA [id number] [address] [place] Immature granulocytes (Bld) [#/Vol] 0.04 10*3/uL Normal <0.10 [facility] Comment on above: Order Comment: Speci men Type: BLOOD SPECIMENOrdering Facility: [facility] Address: [address] [place] [address] Performed By: #### 5 7021-8 ####[facility]ORYCLIA [id number] [address] [place] Immature granulocytes/100 WBC (Bld) 0.4 % Normal [facility] Comment on above: Order Comment: Speci men Type: BLOOD SPECIMENOrdering Facility: [facility] Address: [address] [place] [address] Performed By: #### 5 7021-8 ####[facility]CLIA [id number] [address] [place] [facility] Lymphocytes (Bld) [#/Vol] 0.94 10*3/uL Low 1.00-4.00 [facility] Comment on above: Order Comment: Speci men Type: BLOOD SPECIMENOrdering Facility: [facility] Address: [address] [place] [address] Performed By: #### 5 7021-8 ####[facility]ORYCLIA [id number] [address] [place] [facility] Lymphocytes/100 WBC (Bld) 10.1 % Normal [facility] Comment on above: Order Comment: Speci men Type: BLOOD SPECIMENOrdering Facility: [facility] Address: [address] [place] [address] Performed By: #### 5 7021-8 ####[facility]ORYCLIA [id number] [place] [address] [place] MCH (RBC) [Entitic mass] 31.4 pg Normal 26.0-34.0 [facility] Comment on above: Order Comment: Speci men Type: BLOOD SPECIMENOrdering Facility: [facility] Address: [address] [place] [address] Performed By: #### 5 7021-8 ####[facility]ORYCLIA [id number] [place] [address] [place] MCHC (RBC) [Mass/Vol] 32.4 g/dL Normal 30.5-36.0 [facility] Comment on above: Order Comment: Speci men Type: BLOOD SPECIMENOrdering Facility: [facility] Address: [address] [place] [address] Performed By: #### 5 7021-8 ####[facility]ORYCLIA [id number] [place] [address] [place] MCV (RBC) [Entitic vol] 97.0 fL Normal 80.0-100.0 [facility] Comment on above: Order Comment: Speci men Type: BLOOD SPECIMENOrdering Facility: [facility] Address: [address] [place] [address] Performed By: #### 5 7021-8 ####[facility]ORYCLIA [id number] [place] [address] [place] Monocytes (Bld) [#/Vol] 0.49 10*3/uL Normal <0.87 [facility] Comment on above: Order Comment: Speci men Type: BLOOD SPECIMENOrdering Facility: [facility] Address: [address] [place] [address] Performed By: #### 5 7021-8 ####[facility]CLIA [id number] [address] Monocytes/100 WBC (Bld) 5.3 % Normal [facility] Comment on above: Order Comment: Speci men Type: BLOOD SPECIMENOrdering Facility: [facility] Address: [address] [place] [address] Performed By: #### 5 7021-8 ####[facility]ORYCLIA [id number] [place] [address] [place] Neutrophils (Bld) [#/Vol] 7.65 10*3/uL High 1.45-7.50 [facility] Comment on above: Order Comment: Speci men Type: BLOOD SPECIMENOrdering Facility: [facility] Address: [address] [place] [address] Performed By: #### 5 7021-8 ####[facility]ORYCLIA [id number] [address] [place] Neutrophils/100 WBC (Bld) 82.2 % Normal [facility] Comment on above: Order Comment: Speci men Type: BLOOD SPECIMENOrdering Facility: [facility] Address: [address] [place] [address] Performed By: #### 5 7021-8 ####[facility]ORYCLIA [id number] [place] [address] [place] Nucleated RBC (Bld) [#/Vol] 10*3/uL Normal <0.01 [facility] Comment on above: Order Comment: Speci men Type: BLOOD SPECIMENOrdering Facility: [facility] Address: [address] [place] [address] Performed By: #### 5 7021-8 ####[facility]ORYCLIA [id number] [address] [place] Nucleated RBC/100 WBC (Bld) [Ratio] 0.0 /100 WBC Normal [facility] Comment on above: Order Comment: Speci men Type: BLOOD SPECIMENOrdering Facility: [facility] Address: [address] [place] [address] Performed By: #### 5 7021-8 ####[facility]ORYCLIA [id number] [place] [address] [place] Platelet mean volume (Bld) [Entitic vol] 10.2 fL Normal 9.0-12.7 [facility] Comment on above: Order Comment: Speci men Type: BLOOD SPECIMENOrdering Facility: [facility] Address: [address] [place] [address] Performed By: #### 5 7021-8 ####[facility]ORYCLIA [id number] [place] [address] [place] Platelets (Bld) [#/Vol] 278 10*3/uL Normal 150-400 [facility] Comment on above: Order Comment: Speci men Type: BLOOD SPECIMENOrdering Facility: [facility] Address: [address] [place] [address] Performed By: #### 5 7021-8 ####[facility]ORYCLIA [id number] [address] [place] RBC (Bld) [#/Vol] 4.62 10*6/uL Normal 3.90-5.20 [facility] Comment on above: Order Comment: Speci men Type: BLOOD SPECIMENOrdering Facility: [facility] Address: [address] [place] [address] Performed By: #### 5 7021-8 ####[facility]ORYCLIA [id number] 05 [address] [place] WBC (Bld) [#/Vol] 9.30 10*3/uL Normal 3.70-11.00 [facility] Comment on above: Order Comment: Speci men Type: BLOOD SPECIMENOrdering Facility: [facility] Address: [address] [place] [address] Performed By: #### 5 7021-8 ####[facility] [id number] [address] CONSULT PROGon 05-15-2024 CONSULT PROG HNO ID: [id number] Author: ALEXI GARZON RPh Service: Pharmacy Author [...] have any questions, please contact pharmacy at [phone]. Age: [age] year old Allergies: ALLERGIES Allergen Reactions Prozac [Fluoxetine * Other: See Comments suicidal ideations Ativan [Lorazepam] Vomiting Azithromycin Intolerance [place] Anaphylaxis [place] Anaphylaxis pickles Fish Anaphylaxis Levofloxacin In D5w [...] Levels: No results found for: ALICIA Garzon [facility] CT CHEST W IVCONon CT CHEST W IVCON * * *Final Report* * * DATE OF EXAM: May 15 2024 7:02PM [facility] 0539 - CT CHEST W IVCON / [...] interlobular septal thickening likely due to edema. Hydrogenation Operator: KIM Transcribe Date/Time: May 16 2024 9:02A Dictated by : BREANN HOOD MD This examination was interpreted and the report reviewed and electronically signed by: BREANN HOOD MD on May 16 2024 9:22AM EST [id number] Normal [facility] Comprehensive metabolic 2000 panelon 05-15-2024 Albumin [Mass/Vol] 4.5 g/dL Normal 3.9-4.9 [facility] Comment on above: Order Comment: Speci men Type: BLOOD SPECIMEN Ordering Facility: [facility] Address: [address] [place] [address] Performed By: #### 5 8410-2 #### [facility] CLIA [id number] [address] [place] [address] [place] ALP [Catalytic activity/Vol] 127 U/L High 34-123 [facility] Comment on above: Order Comment: Speci men Type: BLOOD SPECIMEN Ordering Facility: [facility] Address: [address] [place] [address] Performed By: #### 5 8410-2 #### [facility] CLIA [id number] [address] [place] [address] [place] ALT [Catalytic activity/Vol] 22 U/L Normal 7-38 [facility] Comment on above: Order Comment: Speci men Type: BLOOD SPECIMEN Ordering Facility: [facility] Address: [address] [place] [address] Performed By: #### 5 8410-2 #### [facility] CLIA [id number] [address] [place] Anion gap [Moles/Vol] 8 mmol/L Normal 8-15 [facility] Comment on above: Order Comment: Speci men Type: BLOOD SPECIMEN Ordering Facility: [facility] Address: [address] [place] [address] Performed By: #### 5 8410-2 #### [facility] CLIA [id number] [address] AST [Catalytic activity/Vol] 23 U/L Normal 13-35 [facility] Comment on above: Order Comment: Speci men Type: BLOOD SPECIMEN Ordering Facility: [facility] Address: [address] [place] [address] Performed By: #### 5 8410-2 #### [facility] CLIA [id number] [address] [place] [address] [place] Bilirubin [Mass/Vol] 0.9 mg/dL Normal 0.2-1.3 [facility] Comment on above: Order Comment: Speci men Type: BLOOD SPECIMEN Ordering Facility: [facility] Address: [address] [place] [address] Performed By: #### 5 8410-2 #### [facility] CLIA [id number] [address] [place] [address] [place] Calcium [Mass/Vol] 9.4 mg/dL Normal 8.5-10.2 [facility] Comment on above: Order Comment: Speci men Type: BLOOD SPECIMEN Ordering Facility: [facility] Address: [address] [place] [address] Performed By: #### 5 8410-2 #### [facility] CLIA [id number] [address] [place] [address] [place] Chloride [Moles/Vol] 104 mmol/L Normal 98-107 [facility] Comment on above: Order Comment: Speci men Type: BLOOD SPECIMEN Ordering Facility: [facility] Address: [address] [place] [address] Performed By: #### 5 8410-2 #### [facility] CLIA [id number] [address] [place] [address] [place] CO2 [Moles/Vol] 25 mmol/L Normal 22-30 [facility] Comment on above: Order Comment: Speci men Type: BLOOD SPECIMEN Ordering Facility: [facility] Address: [address] [place] [address] Performed By: #### 5 8410-2 #### [facility] CLIA [id number] [address] [place] [address] [place] Creatinine [Mass/Vol] 0.89 mg/dL Normal 0.58-0.96 [facility] Comment on above: Order Comment: Speci men Type: BLOOD SPECIMEN Ordering Facility: [facility] Address: [address] [place] [address] Performed By: #### 5 8410-2 #### [facility] CLIA [id number] [address] Creatinine and Glomerular filtration rate.predicted panel (S/P/Bld) 82 mL/min/1.73m??? Normal >=60 [facility] Comment on above: Order Comment: Speci men Type: BLOOD SPECIMEN Ordering Facility: [facility] Address: [address] [place] [address] Result Comment: Sandie mated Glomerular Filtration Rate [...] GFR. Performed By: #### 5 8410-2 #### [facility] CLIA [id number] [address] [place] [address] [place] Glucose [Mass/Vol] 80 mg/dL Normal 74-99 [facility] Comment on above: Order Comment: David horton Type: BLOOD SPECIMEN Ordering Facility: [facility] Address: [address] [place] [address] Result Comment: The [place] Diabetes Association (ADA) provides guidance for cutoff [...] Standards of Medical Care in Diabetes 2016, [place] [employer]. Diabetes Care. 2016.39(Suppl 1). Performed By: #### 5 8410-2 #### [facility] CLIA [id number] [address] [place] [address] [place] Potassium [Moles/Vol] 4.3 mmol/L Normal 3.7-5.1 [facility] Comment on above: Order Comment: David horton Type: BLOOD SPECIMEN Ordering Facility: [facility] Address: [address] [place] [address] Performed By: #### 5 8410-2 #### [facility] CLIA [id number] [address] [place] [address] [place] Protein [Mass/Vol] 7.3 g/dL Normal 6.3-8.0 [facility] Comment on above: Order Comment: David horton Type: BLOOD SPECIMEN Ordering Facility: [facility] Address: [address] [place] [address] Performed By: #### 5 8410-2 #### [facility] CLIA [id number] [address] Sodium [Moles/Vol] 137 mmol/L Normal 136-144 [facility] Comment on above: Order Comment: Speci men Type: BLOOD SPECIMEN Ordering Facility: [facility] Address: [address] [place] [address] Performed By: #### 5 8410-2 #### [facility] CLIA [id number] [address] Urea nitrogen [Mass/Vol] 11 mg/dL Normal 7-21 [facility] Comment on above: Order Comment: Speci men Type: BLOOD SPECIMEN Ordering Facility: [facility] Address: [address] [place] [address] Performed By: #### 5 8410-2 #### [facility] CLIA [id number] [address] ED NOTEon 05-15-2024 ED NOTE HNO ID: [id number] Author: CK TADEO RN Service: Nursing Author Type: Registered Nurse Type: ED Notes Filed: 05/15/2024 17:54 Note Text: Report called to [address] [place] [address] ED PROV NOTEon 05-15-2024 ED PROV NOTE HNO ID: [id number] Author: TARIQ PEREZ MD Service: Emergency Medicine [...] persistent chest pain. History provided by: Patient court interpreter used: No PAST MEDICAL HISTORY Diagnosis Date [...] PERMANENT TRANSVENOUS PACEMAKER INSERTION 2006 ICD implant, [facility] ANESTHESIA TUBAL LIGATION/TRANSECTION APPENDECTOMY 05/05/2014 [...] suicidal ideations Ativan [Lorazepam] Vomiting Azithromycin Intolerance [place] Anaphylaxis Fish Anaphylaxis Levofloxacin In D5w Swelling, [...] ?F) Or (more content not included)... Normal [facility] EKGon 05-15-2024 Electrocardiogram Ventricular Rate : 7 1 BPM Atrial Rate : 71 BPM P-R Interval : 162 ms QRS Duration : 90 ms Q-T Interval : 406 ms QTC Calculation(Bazett) : 441 ms Calculated P [place] : 41 degrees Calculated R [place] : 260 degrees Calculated T [place] : 75 degrees NORMAL SINUS RHYTHM LEFT ATRIAL ENLARGEMENT BIVENTRICULAR HYPERTROPHY CANNOT RULE OUT SEPTAL INFARCT , AGE UNDETERMINED POSSIBLE LATERAL INFARCT (CITED ON OR BEFORE 22-Dec-2018) ABNORMAL ECG When compared with selected ECG of 24-Apr-2021 22:05, QRS AXIS SHIFTED LEFT no STEMI Confirmed by TARIQ PEREZ MD ([id number]) on 05/15/2024 12:29:22 PM NAME : MICHELLE MITCHELL PID : [id number] : 1980 Gender : Female Race : [...] no STEMI Confirmed by TARIQ PEREZ MD ([id number]) on 05/15/2024 12:29:22 PM Test Reason : Location : 1 : ER ED Overread By : TARIQ PEREZ MD Edited By : TARIQ PEREZ MD Referred By : , Acquired by : Carlos Eduardo NAVARRETE [facility] Gas and Carbon monoxide pane l (BldV)on 05-15-2024 Base excess Calc (BldV) [Moles/Vol] 0 mmol/L Normal 0-2 [facility] Comment on above: Order Comment: David horton Type: VENOUS BLOOD SPECIMENOrdering Facility: [facility] Address: [address] [place] [address] Performed By: #### 2 4344-4 ####[facility] [id number] [facility] [id number] [place] [address] Carboxyhemoglobin (BldV) [Mass fraction] 2.5 % High 0.0-2.0 [facility] Comment on above: Order Comment: David horton Type: VENOUS BLOOD SPECIMENOrdering Facility: [facility] Address: [address] [place] [address] Result Comment: Carb oxyhemoglobin Reference Range for Smokers: 2.0-8.0% Performed By: #### 2 4344-4 ####[facility]CL[facility] [id number] [facility] [id number] [place] [address] CO2 (BldV) [Partial pressure] 41 mm[Hg] Low 42-55 [facility] Comment on above: Order Comment: Speci men Type: VENOUS BLOOD SPECIMENOrdering Facility: [facility] Address: [address] [place] [address] Performed By: #### 2 4344-4 ####[facility] [id number] [facility] [id number] [address] [address] CO2 adjusted to patient's actual temperature (BldV) [Partial pressure] Normal [facility] Comment on above: Order Comment: Speci men Type: VENOUS BLOOD SPECIMENOrdering Facility: [facility] Address: [address] [place] [address] Performed By: #### 2 4344-4 ####[facility]ORYIA [id number] [facility] [id number] [address] HCO3 (Bld) [Moles/Vol] 25 mmol/L Normal 24-28 [facility] Comment on above: Order Comment: Speci men Type: VENOUS BLOOD SPECIMENOrdering Facility: [facility] Address: [address] [place] [address] Performed By: #### 2 4344-4 ####[facility]ATORYIA [id number] [facility] [id number] [address] [address] Hemoglobin (Bld) [Mass/Vol] 15.4 g/dL Normal 11.5-15.5 [facility] Comment on above: Order Comment: Speci men Type: VENOUS BLOOD SPECIMENOrdering Facility: [facility] Address: [address] [place] [address] Performed By: #### 2 4344-4 ####[facility]CL[facility] [id number] [facility] [id number] [address] [address] Lactate [Moles/Vol] 1.2 mmol/L Normal 0.5-2.2 [facility] Comment on above: Order Comment: Speci men Type: VENOUS BLOOD SPECIMENOrdering Facility: [facility] Address: [address] [place] [address] Performed By: #### 2 4344-4 ####[facility]ORYCL[facility] [id number] [facility] [id number] [address] [address] Methemoglobin (Bld) [Mass fraction] % Normal 0.0-1.5 [facility] Comment on above: Order Comment: Speci men Type: VENOUS BLOOD SPECIMENOrdering Facility: [facility] Address: [address] [place] [address] Performed By: #### 2 4344-4 ####[facility]IRATORYIA [id number] [facility]OS[facility] [id number] [address] O2 THERAPY RA=Room Air [facility] Comment on above: Order Comment: Speci men Type: VENOUS BLOOD SPECIMENOrdering Facility: [facility] Address: [address] [place] [address] Performed By: #### 2 4344-4 ####[facility]ATORYIA [id number] [facility] [id number] [address] [address] Oxygen (BldV) [Partial pressure] 32 mm[Hg] Low 35-45 [facility] Comment on above: Order Comment: Speci men Type: VENOUS BLOOD SPECIMENOrdering Facility: [facility] Address: [address] [place] [address] Performed By: #### 2 4344-4 ####[facility]ORYIA [id number] [facility] [id number] [address] Oxygen adjusted to patient's actual temperature (BldV) [Partial pressure] [facility] Comment on above: Order Comment: Speci men Type: VENOUS BLOOD SPECIMENOrdering Facility: [facility] Address: [address] [place] [address] Performed By: #### 2 4344-4 ####[facility] [id number] [facility]OSP[facility] RESPIRAT[facility] [id number] [address] Oxygen saturation in Venous blood 59 % Low 60-85 [facility] Comment on above: Order Comment: Speci men Type: VENOUS BLOOD SPECIMENOrdering Facility: [facility] Address: [address] [place] [address] Performed By: #### 2 4344-4 ####[facility]ORYCL[facility] [id number] [facility] [id number] [address] [address] Oxyhemoglobin (BldV) [Mass fraction] 57 % Low 60-85 [facility] Comment on above: Order Comment: Speci men Type: VENOUS BLOOD SPECIMENOrdering Facility: [facility] Address: [address] [place] [address] Performed By: #### 2 4344-4 ####[facility]ORYCL[facility] [id number] [facility] [id number] [place] [id number] pH (BldV) 7.39 [pH] Normal 7.32-7.42 [facility] Comment on above: Order Comment: Speci men Type: VENOUS BLOOD SPECIMENOrdering Facility: [facility] Address: [address] [place] [address] Performed By: #### 2 4344-4 ####[facility]ATORYIA [id number] [facility] [id number] [address] pH adjusted to patient's actual temperature (BldV) Normal [facility] Comment on above: Order Comment: Speci men Type: VENOUS BLOOD SPECIMENOrdering Facility: [facility] Address: [address] [place] [address] Performed By: #### 2 4344-4 ####[facility]ORYIA [id number] [facility] [id number] [address] Potassium [Moles/Vol] 3.9 mmol/L Normal 3.5-5.0 [facility] Comment on above: Order Comment: Speci men Type: VENOUS BLOOD SPECIMENOrdering Facility: [facility] Address: [facility] [place] [address] Performed By: #### 2 4344-4 ####[facility]ATORYIA [id number] [facility] [id number] [address] [address] HIGH SENSITIVITY TROPONIN T (INITIAL)on 05-15-2024 Troponin T.cardiac High sensitivity method [Mass/Vol] 22 ng/L High <12 [facility] Comment on above: Order Comment: David horton Type: BLOOD SPECIMEN [facility] Facility: [facility] Address: [address] [place] [address] Performed By: #### 5 8410-2 #### [facility] CLIA [id number] [address] HIGH SENSITIVITY TROPONIN T (SECOND)on 05-15-2024 Troponin T.cardiac High sensitivity method [Mass/Vol] 22 ng/L High <12 [facility] Comment on above: Order Comment: David horton Type: BLOOD SPECIMENOrdering Facility: [facility] Address: [address] [place] [address] Performed By: #### L [id number] ####[facility]ORYCLIA [id number] [address] HIGH SENSITIVITY TROPONIN T (THIRD) 3 HRS AFTER INITIALon 05-15-2024 Troponin T.cardiac High sensitivity method [Mass/Vol] 24 ng/L High <12 [facility] Comment on above: Order Comment: David horton Type: BLOOD SPECIMENOrdering Facility: [facility] Address: [address] [place] [address] Performed By: #### L [id number] ####[facility]ORYCLIA [id number] [address] HISTORY PHYSICALon HISTORY PHYSICAL HNO ID: [id number] Author: DEX WILKINSON MD Service: Family Practice [...] PERMANENT TRANSVENOUS PACEMAKER INSERTION 2006 ICD implant, [facility] ANESTHESIA TUBAL LIGATION/TRANSECTION APPENDECTOMY 05/05/2014 [...] suicidal ideations Ativan [Lorazepam] Vomiting Azithromycin Intolerance [place] Anaphylaxis [place] Anaphylaxis pickles Fish Anaphylaxis Levofloxacin In D5w Swelling, Itching IV site swollen, ceased after d/c, redness and itching at site Neurontin [Gabapent* Mental Status Change Shellfish Anaphylaxis Tigan [Trimethobenz* Anaphylaxis Ultram [Tram (more content not included)... Normal [facility] NT-proBNP [facility] 05-15 Natriuretic peptide.B prohormone N-Terminal [Mass/Vol] 2616 pg/mL High <125 [facility] Comment on above: Order Comment: David horotn Type: BLOOD SPECIMEN [facility]ing Facility: [facility] Address: [address] [place] [address] Performed By: #### 5 8410-2 #### [facility] CLIA [id number] [address] PT panel Coag (PPP)on 2024 INR Coag (PPP) [Relative time] 1.1 {INR} Normal 0.9-1.3 [facility] Comment on above: Order Comment: David horton Type: BLOOD SPECIMENOrdering Facility: [facility] Address: [address] [place] [address] Result Comment: Nancy min K Antagonist (VKA) Therapeutic Range: INR 2 to 3 (Target INR of 2.5) Note: For patients treated with VKA drugs, such as warfarin, the [place] [employer] 2012 Guideline recommends [...] Chest 2012, 141:7S-47S Gia RA, et al. JAC 2017, 70: 252-289 Performed By: #### 3 4528-0, 28490-5 ####[facility]ORYCLIA [id number] [address] [place] [facility] PT Coag (PPP) [Time] 11.7 s Normal 9.7-13.0 [facility] Comment on above: Order Comment: David horton Type: BLOOD SPECIMENOrdering Facility: [facility] Address: [address] [place] [address] Performed By: #### 3 4528-0, 81259-3 ####[facility]ATORYCLIA [id number] [place] [address] [facility] [place] XR CHEST 1V FRONTAL PORTon [...] Other: . IMPRESSION: Bilateral consolidation is suspected. Hydrogenation Operator: PSCManjinder Transcribe Date/Time: May 15 2024 12:02P Dictated by : BOGDAN LUNA MD This examination was interpreted and the report reviewed and electronically signed by: BOGDAN LUNA MD on May 15 2024 12:05PM EST [id number] Normal [facility] aPTT PPPon 05-15-2024 aPTT Coag (PPP) [Time] 28.2 s Normal 23.0-32.4 [facility] Comment on above: Order Comment: Speci men Type: BLOOD SPECIMENOrdering Facility: [facility] Address: [address] [place] [address] Performed By: #### 3 4528-0, 73523-8 ####[facility]ORYCLIA [id number] [place] [address] [facility] Emergency Department Summary on 05-12-2024 Emergency Department Summary Normal [facility] Pacemaker Checkon 03-28-2024 Pacemaker Check Normal [facility] CBC (INCLUDES DIFF/PLT)on Basophils (Bld) [#/Vol] 0.056 10*3/uL Normal 0-200 [facility] Comment on above: Performed By: #### 1 0231, 7137, 5616, 1005, 899, 6399 #### [facility] of [place] [address] Agriscience Instructor: Gage Viramontes MD Basophils/100 WBC (Bld) 0.5 % Normal [facility] Comment on above: Performed By: #### 1 0231, 7137, 5616, 1005, 899, 6399 #### [facility] of [place] [address] Agriscience Instructor: Gage Viramontes MD Eosinophils (Bld) [#/Vol] 0.122 10*3/uL Normal 15-500 [facility] Comment on above: Performed By: #### 1 0231, 7137, 5616, 1005, 899, 6399 #### [facility] of [place] [address] Agriscience Instructor: Gage Viramontes MD Eosinophils/100 WBC (Bld) 1.1 % Normal [facility] Comment on above: Performed By: #### 1 0231, 7137, 5616, 1005, 899, 6399 #### [facility] of [place] [address] Agriscience Instructor: Gage Viramontes MD Erythrocyte distribution width (RBC) [Ratio] 11.5 % Normal 11.0-15.0 [facility] Comment on above: Performed By: #### 1 0231, 7137, 5616, 1005, 899, 6399 #### [facility] of [place] [address] Agriscience Instructor: Gage Viramontes MD Hematocrit (Bld) [Volume fraction] 43.8 % Normal 35.0-45.0 [facility] Comment on above: Performed By: #### 1 0231, 7137, 5616, 1005, 899, 6399 #### [facility] of [address] Agriscience Instructor: Gage Viramontes MD Hemoglobin (Bld) [Mass/Vol] 14.5 g/dL Normal 11.7-15.5 [facility] Comment on above: Performed By: #### 1 0231, 7137, 5616, 1005, 899, 6399 #### [facility] [address], [address] [place] [address] Agriscience Instructor: Gage Viramontes MD Lymphocytes (Bld) [#/Vol] 1.021 10*3/uL Normal 850-3900 [facility] Comment on above: Performed By: #### 1 0231, 37, 5616, 1005, 899, 6399 #### [facility] [place] [address] Agriscience Instructor: Gage Viramontes MD Lymphocytes/100 WBC (Bld) 9.2 % Normal [facility] Comment on above: Performed By: #### 1 023, 7136, 5616, 1005, 899, 6399 #### [facility] of [place] [address] Agriscience Instructor: Gage Viramontes MD MCH (RBC) [Entitic mass] 31.7 pg Normal 27.0-33.0 [facility] Comment on above: Performed By: #### 1 0231, 7136, 5616, 1005, 899, 6399 #### [facility] [place] [address] Agriscience Instructor: Gage Viramontes MD MCHC (RBC) [Mass/Vol] 33.1 g/dL Normal 32.0-36.0 [facility] Comment on above: Result Comment: [...] 1005, 899, 6399 #### [facility] of [place] [address] Agriscience Instructor: Gage Viramontes MD MCV (RBC) [Entitic vol] 95.8 fL Normal 80.0-100.0 [facility] Comment on above: Performed By: #### 1 0231, 7137, 5616, 1005, 899, 6399 #### [facility] of [place] [address] Agriscience Instructor: Gage Viramontes MD Monocytes (Bld) [#/Vol] 0.522 10*3/uL Normal 200-950 [facility] Comment on above: Performed By: #### 1 0231, 7137, 5616, 1005, 899, 6399 #### [facility] [place] [address] Agriscience Instructor: Gage Viramontes MD Monocytes/100 WBC (Bld) 4.7 % Normal [facility] Comment on above: Performed By: #### 1 0231, 7137, 5616, 1005, 899, 6399 #### [facility] of [place] [address] Agriscience Instructor: Gage Viramontes MD Neutrophils (Bld) [#/Vol] 9.38 10*3/uL High 9367-5787 [facility] Comment on above: Performed By: #### 1 0231, 7137, 5616, 1005, 899, 6399 #### [facility] of [place] [address] Agriscience Instructor: Gage Viramontes MD Neutrophils/100 WBC (Bld) 84.5 % Normal [facility] Comment on above: Performed By: #### 1 0231, 7137, 5616, 1005, 899, 6399 #### [facility] of [place] [address] Agriscience Instructor: Gage Viramontes MD Platelet mean volume (Bld) [Entitic vol] 12.1 fL Normal 7.5-12.5 [facility] Comment on above: Performed By: #### 1 0231, 7137, 5616, 1005, 899, 6399 #### [facility] of [place] [address] Agriscience Instructor: Gage Viramontes MD Platelets (Bld) [#/Vol] 270 10*3/uL Normal 140-400 [facility] Comment on above: Performed By: #### 1 0231, 7137, 5616, 1005, 899, 6399 #### [facility] of [address], [address] [place] [address] Agriscience Instructor: Gage Viramontes MD RBC (Bld) [#/Vol] 4.57 10*6/uL Normal 3.80-5.10 [facility] Comment on above: Performed By: #### 1 0231, 7137, 5616, 1005, 899, 6399 #### [facility] [place] [address] Agriscience Instructor: Gage Viramontes MD WBC (Bld) [#/Vol] 11.1 10*3/uL High 3.8-10.8 [facility] Comment on above: Performed By: #### 1 0231, 7137, 5616, 1005, 899, 6399 #### [facility] [place] [address] Agriscience Instructor: Gage Viramontes MD [facility] METABOLIC PANE [facility] 01-06-2024 Albumin [Mass/Vol] 5.0 g/dL Normal 3.6-5.1 [facility] Comment on above: Performed By: #### 1 0231, 7137, 5616, 1005, 899, 6399 #### [facility] [place] [address] Agriscience Instructor: Gage Viramontes MD Albumin/Globulin [Mass ratio] 1.9 {ratio} Normal 1.0-2.5 [facility] Comment on above: Performed By: #### 1 0231, 7137, 5616, 1005, 899, 6399 #### [facility] [place] [address] Agriscience Instructor: Gage Viramontes MD ALP [Catalytic activity/Vol] 93 U/L Normal 31-125 [facility] Comment on above: Performed By: #### 1 0231, 7137, 5616, 1005, 899, 6399 #### [facility] [place] [address] Agriscience Instructor: Gage Viramontes MD ALT [Catalytic activity/Vol] 27 U/L Normal 6-29 [facility] Comment on above: Performed By: #### 1 0231, 37, 5616, 1005, 899, 6399 #### [facility] [place] [address] Agriscience Instructor: Gage Viramontes MD AST [Catalytic activity/Vol] 21 U/L Normal 10-30 [facility] Comment on above: Performed By: #### 1 0231, 7136, 561, 1005, 899, 6399 #### [facility] [place] [address] Agriscience Instructor: Gage Viramontes MD Bilirubin [Mass/Vol] 0.6 mg/dL Normal 0.2-1.2 [facility] Comment on above: Performed By: #### 1 0231, 7136, 561, 1005, 899, 6399 #### [facility] [place] [address] Agriscience Instructor: Gage Viramontes MD BUN/CREATININE RATIO SEE NOTE: Normal 6-22 [facility] Comment on above: Result Comment: Not Reported: BUN and Creatinine are within reference range. Performed By: #### 1 0231, 7137, 5616, 1005, 899, 6399 #### [facility] [place] [address] Agriscience Instructor: Gage Viramontes MD Calcium [Mass/Vol] 9.8 mg/dL Normal 8.6-10.2 [facility] Comment on above: Performed By: #### 1 0231, 7137, 5616, 1005, 899, 6399 #### [facility] [place] [address] Agriscience Instructor: Gage Viramontes MD Chloride [Moles/Vol] 108 mmol/L Normal 98-110 [facility] Comment on above: Performed By: #### 1 0231, 7137, 5616, 1005, 899, 6399 #### [facility] [place] [address] Agriscience Instructor: Gage Viramontes MD CO2 [Moles/Vol] 22 mmol/L Normal 20-32 [facility] Comment on above: Performed By: #### 1 0231, 7136, 561, 100, 89, 6399 #### [facility] [place] [address] Agriscience Instructor: Gage Viramontes MD Creatinine [Mass/Vol] 0.77 mg/dL Normal 0.50-0.[address] [facility] Comment on above: Performed By: #### 1 0231, 37, 561, 1005, 899, 6399 #### [facility] [place] [address] Agriscience Instructor: Gage Viramontes MD GFR/1.73 sq M.predicted among non-blacks MDRD (S/P/Bld) [Vol rate/Area] 97 mL/min/{1.73_m2} Normal > OR = 60 [facility] Comment on above: Performed By: #### 1 0231, 37, 561, 1005, 899, 6399 #### [facility] [place] [address] Agriscience Instructor: Gage Viramontes MD Globulin (S) [Mass/Vol] 2.6 g/dL Normal 1.9-3.7 [facility] Comment on above: Performed By: #### 1 0231, 7137, 5616, 1005, 899, 6399 #### [facility] [address] [place] [address] Agriscience Instructor: Gage Viramontes MD Glucose [Mass/Vol] 82 mg/dL Normal 65-99 [facility] Comment on above: Result Comment: Fasting reference interval Performed By: #### 1 0231, 7137, 5616, 1005, 899, 6399 #### [facility] [place] [address] Agriscience Instructor: Gage Viramontes MD Potassium [Moles/Vol] 3.9 mmol/L Normal 3.5-5.3 [facility] Comment on above: Performed By: #### 1 0231, 7137, 5616, 1005, 899, 6399 #### [facility] [place] [address] Agriscience Instructor: Gage Viramontes MD Protein [Mass/Vol] 7.6 g/dL Normal 6.1-8.1 [facility] Comment on above: Performed By: #### 1 0231, 7137, 5616, 1005, 899, 6399 #### [facility] [place] [address] Agriscience Instructor: Gage Viramontes MD Sodium [Moles/Vol] 138 mmol/L Normal 135-146 [facility] Comment on above: Performed By: #### 1 0231, 7137, 5616, 1005, 899, 6399 #### [facility] [place] [address] Agriscience Instructor: Gage Viramontes MD Urea nitrogen [Mass/Vol] 12 mg/dL Normal 7-25 [facility] Comment on above: Performed By: #### 1 0231, 7137, 5616, 1005, 899, 6399 #### [facility] [place] [address] Agriscience Instructor: Gage Viramontes MD [facility] 01-06-2024 FSH 3.7 mIU/mL Normal [facility] Comment on above: Result Comment: Refe rence Range Follicular Phase 2.5-10.2 Mid-cycle Peak 3.1-17.7 Luteal Phase 1.5- 9.1 Postmenopausal 23.0-116.3 Performed By: #### 1 0231, 7137, 5616, 1005, 899, 6399 #### [facility] [place] [address] Agriscience Instructor: Gage Viramontes MD LH 3.0 mIU/mL Normal [facility] Comment on above: Result Comment: Refe rence Range Follicular Phase 1.9-12.5 Mid-Cycle Peak 8.7-76.3 Luteal Phase 0.5-16.9 Postmenopausal 10.0-54.7 Performed By: #### 1 0231, 71, 5616, 1005, 899, 6399 #### [facility] [place] [address] Agriscience Instructor: Gage Viramontes MD IRON, TIBC AND FERRITIN [facility] 01-06-2024 % SATURATION 37 % (calc) Normal 16-45 [facility] Comment on above: Performed By: #### 1 023, 71, 561, 1005, 899, 6399 #### [facility] [place] [address] Agriscience Instructor: Gage Viramontes MD Ferritin [Mass/Vol] 73 ng/mL Normal 16-232 [facility] Comment on above: Performed By: #### 1 023, 7137, 561, 1005, 89, 6399 #### [facility] [place] [address] Agriscience Instructor: Gage Viramontes MD IRON BINDING CAPACITY 340 mcg/dL (calc) Normal 250-450 [facility] Comment on above: Performed By: #### 1 0231, 7137, 5616, 1005, 899, 6399 #### [facility] [place] [address] Agriscience Instructor: Gage Viramontes MD IRON, TOTAL 125 mcg/dL Normal 40-190 [facility] Comment on above: Performed By: #### 1 0231, 7137, 5616, 1005, 899, 6399 #### [facility] [address], [address] [place] [address] Agriscience Instructor: Gage Viramontes MD TEST AUTHORIZATIONon 024 CLIENT CONTACT: CRYSTAL Normal [facility] Comment on above: Performed By: #### 1 0231, 7137, 5616, 1005, 899, 6399 #### [facility] [address], [address] [place] [address] Agriscience Instructor: Gage Viramontes MD COMMENT Normal [facility] Comment on above: Result Comment: Plea se have the ordering physician or his or her authorized business office representative sign a copy of this report and promptly return it by faxing it to: [phone] or by returning the form to 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 Performed By: #### 1 0231, 7137, 5616, 1005, 899, 6399 #### [facility] [address], [address] [place] [address] Agriscience Instructor: Gage Viramontes MD REPORT ALWAYS MESSAGE SIGNATURE Normal [facility] Comment on above: Result Comment: The laboratory testing on this patient was verbally requested or confirmed by the ordering physician or his or her authorized business office representative after contact with an employee of [employer]. Federal regulations require that we maintain on file written authorization for all laboratory testing. Accordingly we are asking that the ordering physician or his or her authorized business office representative sign a copy of this report and promptly return it to the accounting representative. Signature: _ Performed By: #### 1 0231, 7137, 5616, 1005, 899, 6399 #### [facility] [address], [address] [place] [address] Agriscience Instructor: Gage Viramontes MD TEST CODE: [id number] Normal [facility] Comment on above: Performed By: #### 1 0231, 7137, 5616, 1005, 899, 6399 #### [facility] [address] [facility], [address] [place] [address] Agriscience Instructor: Gage Viramontes MD TEST NAME: CMP Normal [facility] Comment on above: Performed By: #### 1 0231, 7137, 5616, 1005, 899, 6399 #### [facility] [address], [address] [place] [address] Agriscience Instructor: Gage Viramontes MD TSHon 01-06-2024 TSH Qn 0.95 m[IU]/L Normal [facility] Comment on above: Result Comment: Refe rence Range > or = 20 Years 0.40-4.50 Ranges First trimester 0.26-2.66 Second trimester 0.55-2.73 Third trimester 0.43-2.91 Performed By: #### 1 0231, 7137, 5616, 1005, 899, 6399 #### [facility] [address], [address] [place] [address] Agriscience Instructor: Gage Viramontes MD Pacemaker Checkon 11-23-2023 Pacemaker Check Normal [facility] Emergency Department Summary on 11-02-2023 Emergency Department Summary Normal [facility] Lactic Acidon 11-02-2023 Lactate [Moles/Vol] 1.0 mmol/L Normal 0.4-1.9 [facility] Comment on above: Order Comment: Y Performed By: #### L 503.6006 ####[facility] [address] [place], [place], [address] Abdomen/Pelvis W IV Cont ONL Yon 11-01-2023 Abdomen/Pelvis W IV Cont ONLY Normal [facility] CBC W/Diff, Automatedon 10-13 SMEAR COMMENT SCANNED Normal [facility] Comment on above: Performed By: #### L 500.4050, L700.6800, L100.0100 ####[facility] [address] [place], [place], [address] Comprehensive Metabolic Prof ilon 11-01-2023 Albumin [Mass/Vol] 4.0 g/dL Normal 3.2-5.0 [facility] Comment on above: Performed By: #### L 500.4050, L700.6800, L100.0100 ####[facility] [address] [place], [address] Albumin/Globulin [Mass ratio] 1.2 {ratio} Normal 0.9-2.4 [facility] Comment on above: Performed By: #### L 500.4050, L700.6800, L100.0100 ####[facility] [address] [place], [address] ALK P 90 U/L Normal 45-117 [facility] Comment on above: Performed By: #### L 500.4050, L700.6800, L100.0100 ####[facility] [address] [place], [address] ALT [Catalytic activity/Vol] 24 U/L Normal 13-56 [facility] Comment on above: Performed By: #### L 500.4050, L700.6800, L100.0100 ####[facility] [address] [place], [address] AST [Catalytic activity/Vol] 19 U/L Normal 15-37 [facility] Comment on above: Performed By: #### L 500.4050, L700.6800, L100.0100 ####[facility] [address] [place], [address] Bilirubin [Mass/Vol] 0.30 mg/dL Normal 0.20-1.00 [facility] Comment on above: Result Comment: For patients on eltrombopag therapy, use of Dimension Mears TBIL is not recommended. Performed By: #### L 500.4050, L700.6800, L100.0100 ####[facility] [address] [place], [address] BUN/CRE 9.7 RATIO Low 10-20 [facility] Comment on above: Performed By: #### L 500.4050, L700.6800, L100.0100 ####[facility] [address] [place], [address] CA,Total 9.5 mg/dL Normal 8.5-10.1 [facility] Comment on above: Performed By: #### L 500.4050, L700.6800, L100.0100 ####[facility] [address] [place], [address] Chloride [Moles/Vol] 107 mmol/L Normal 98-107 [facility] Comment on above: Performed By: #### L 500.4050, L700.6800, L100.0100 ####[facility] [address] [place], [address] CO2 [Moles/Vol] 26.0 mmol/L Normal 21.0-32.0 [facility] Comment on above: Performed By: #### L 500.4050, L700.6800, L100.0100 ####[facility] [address] [place], [address] Creatinine [Mass/Vol] 0.83 mg/dL Normal 0.55-1.02 [facility] Comment on above: Result Comment: The validity of the calculated GFR GFRAA in patients over70 years has not been determined. Clinical correlation isessential. Performed By: #### L 500.4050, L700.6800, L100.0100 ####[facility] [address] [place], [address] ECRCL 74.69 ml/min Normal [facility] Comment on above: Performed By: #### L 500.4050, L700.6800, L100.0100 ####[facility] [address] [place], [address] EST GFR - AA 97 mL/min Normal >60 [facility] Comment on above: Result Comment: Afri can Martiniquais GFR Calc Performed By: #### L 500.4050, L700.6800, L100.0100 ####[facility] [address] [place], [address] GAP 6 Normal 5-15 [facility] Comment on above: Performed By: #### L 500.4050, L700.6800, L100.0100 ####[facility] [address] [place], [address] GFR/1.73 sq M.predicted among non-blacks MDRD (S/P/Bld) [Vol rate/Area] 80 mL/min/{1.73_m2} Normal >60 [facility] Comment on above: Result Comment: Non- GFR Calc Performed By: #### L 500.4050, L700.6800, L100.0100 ####[facility] [address] [place], [address] Globulin (S) [Mass/Vol] 3.3 g/dL Normal 2.2-4.2 [facility] Comment on above: Performed By: #### L 500.4050, L700.6800, L100.0100 ####[facility] [address] [place], [address] Glucose [Mass/Vol] 96 mg/dL Normal 74-106 [facility] Comment on above: Performed By: #### L 500.4050, L700.6800, L100.0100 ####[facility] [address] [place], [address] Potassium [Moles/Vol] 3.2 mmol/L Low 3.5-5.1 [facility] Comment on above: Performed By: #### L 500.4050, L700.6800, L100.0100 ####[facility] [address] [place], [address] Sodium [Moles/Vol] 139 mmol/L Normal 136-145 [facility] Comment on above: Performed By: #### L 500.4050, L700.6800, L100.0100 ####[facility] [address] [place], [address] T PROT 7.3 g/dL Normal 6.4-8.2 [facility] Comment on above: Performed By: #### L 500.4050, L700.6800, L100.0100 ####[facility] [address] [place], [address] Urea nitrogen [Mass/Vol] 8 mg/dL Normal 7-18 [facility] Comment on above: Performed By: #### L 500.4050, L700.6800, L100.0100 ####[facility] [address] [place], [address] Final Surgical Pathology Rep [facility] 11-01-2023 Final Surgical Pathology Report . Pathology Reports Accession: Collected Date/Time: Received Date/Time: Pathologist: [id number] 10/31/2023 10:23 EDT 10/31/2023 14:26 EDT MD [...] All parts labelled with patient name and [id number] A. Received in formalin labeled "terminal ileum" are 2 maharaj-pink tissue fragments each measuring 0.2 cm. TS-1 B. Received in formalin labeled "right and left colon" are multiple maharaj-pink tissue fragments aggregating 1.3 x 0.2 x 0.2 cm. TS-1 Flakita Waidman, Grossing Senior Procurement Specialist/ Dr. Nabor Jarrett, Pathologist Performed by Flakita Rodrigez MICROSCOPIC DESCRIPTION: The microscopic examination is performed, except in the case of Gross Only. Electronically Signed by Pathology Report verified by [facility] KAYLYN PELAYO MD Sign out Date: 11/01/2023 09:26 Performing Lab: [facility], [address] [place] [address] Pathology Dept Disclaimer If ancillary studies were utilized, the following Laboratory Developed Test (LDT) disclaimer will apply: Under CLIA requirements, [facility] Pathology Laboratory is qualified to perform high complexity testing. For all ancillary stains, positive and negative controls stain appropriately. Performance characteristics of immunohistochemical and chromogenic in-situ hybridization tests have been determined by [facility] Pathology Laboratory. These tests are used for clinical purposes, They should not be regarded as investigational or for research. Normal [facility] ([place]) Lipaseon 11-01-2023 Lipase [Catalytic activity/Vol] 32 U/L Normal 13-75 [facility] Comment on above: Result Comment: Liam rader note:LIPASE revised reference range effective 22.New Lipase methodology. Expected to produce lower valuesthan the previous assay method.NEW Reference Range: 13 - 75 U/L Performed By: #### L 501.2450 ####[facility] [address] [place], [place], [id number] ,Serum,hCG Quali.on 11-01-2023 HCG, SERUM QUAL Negative Normal [facility] Comment on above: Performed By: #### L 500.4050, L700.6800, L100.0100 ####[facility] [address] [place], [place], [id number] Urinalysis, Completeon 10-31 BACTERIA 2+ /hpf Normal None Seen [facility] Comment on above: Order Comment: CLEAN CATCH Performed By: #### L 400.0001 ####[facility] [address] [place], [place], [id number] RBC 0-5 SEEN Normal 0-5 [facility] Comment on above: Order Comment: CLEAN CATCH Performed By: #### L 400.0001 ####[facility] [address] [place], [place], [id number] YEAST 2+ /hpf Normal None Seen [facility] Comment on above: Order Comment: CLEAN CATCH Performed By: #### L 400.0001 ####[facility] [address] [place], [address] EPI,SQUAMOUS 0-5 SEEN Normal 5-10 [facility] Comment on above: Order Comment: CLEAN CATCH Performed By: #### L 400.0001 ####[facility] [address] [place], [address] Mucus Ql (Urine sed) 0 SEEN Normal [facility] Comment on above: Order Comment: CLEAN CATCH Performed By: #### L 400.0001 ####[facility] [address] [place], [address] WBC 0 SEEN Normal 0-5 [facility] Comment on above: Order Comment: CLEAN CATCH Performed By: #### L 400.0001 ####[facility] [address] [place], [address] ONC Echo Completeon 09-13-19 24 ONC Echo Complete Normal [facility] Absolute lymphocyte countOrd ered By: Suman Lowe on 07-04-2023 Lymphocytes Auto (Unsp spec) [#/Vol] 1.65 10*3/uL 0.83-4.51 [facility] Automated lymphocyte count a s percentage of total leukocytesOrdered By: Suman Lowe on 07-04-2023 Lymphocytes/100 WBC Auto (Unsp spec) 19.6 % 19-41 [facility] Basophil percentageOrdered B y: Suman Lowe on 07-04-2023 Basophil percentage 0-5 SEEN /hpf 0-5 [facility] Basophils/100 WBC (Bld) 0.8 % 0-1 [facility] Bilirubin [Mass/Vol] 0.60 mg/dL 0.20-1.00 [facility] Comment on above: For patients on eltr ombopag therapy, use of Dimension Mears TBIL is not recommended. Chloride [Moles/Vol] 107 mmol/L 98-107 [facility] Eosinophils/100 WBC (Bld) 1.5 % 0-5 [facility] Glucose [Mass/Vol] 105 mg/dL 74-106 [facility] Comment on above: Fasting Glucose resu lt from 100 to 125 mg/dL suggests IMPAIRED HOMEOSTASIS per A.D.A. criteria. Hemoglobin (Bld) [Mass/Vol] 13.6 g/dL 12.0-15.0 [facility] Monocytes/100 WBC (Bld) 6.1 % 0-10 [facility] Neutrophils (Bld) [#/Vol] 6.0 10*3/uL 2.0-7.7 [facility] Neutrophils/100 WBC (Bld) 71.6 % 47-70 [facility] Potassium [Moles/Vol] 4.0 mmol/L 3.5-5.1 [facility] Comment on above: Moderate Hemolysis, Result may be falsely increased. Protein [Mass/Vol] 7.1 g/dL 6.4-8.2 [facility] Sodium [Moles/Vol] 137 mmol/L 136-145 [facility] WBC (Bld) [#/Vol] 8.4 10*3/uL 4.4-11.0 [facility] Bilirubin Test strip Ql (U)O rdered By: Suman Lowe on 07-04-2023 Bilirubin Ql (U) Negative Negative [facility] Determination of erythrocyte mean corpuscular volume (MCV)Ordered By: Suman Lowe on 07-04-2023 MCV (RBC) [Entitic vol] 97.7 fL 81-99 [facility] Erythrocyte distribution wid th ratioOrdered By: Suman Lowe on 07-04-2023 Erythrocyte distribution width (RBC) [Ratio] 13.2 % 11.6-14.6 [facility] Erythrocyte distribution wid th standard deviationOrdered By: Suman Lowe on 07-04-2023 Erythrocyte distribution width (RBC) [Entitic vol] 47.3 fL 35.1-43.9 [facility] Hematocrit Auto (Bld) [Volum e fraction]Ordered By: Suman Lowe on 07-04-2023 Hematocrit (Bld) [Volume fraction] 42.3 % 37-47 [facility] Immature granulocytes/100 WB C Auto (Bld)Ordered By: Suman Lowe on 07-04-2023 Immature granulocytes/100 WBC (Bld) 0.400 % 0.0-0.9 [facility] Comment on above: IG% - Immature Granu locytes (promyelocytes, myelocytes and metamyelocytes) > 1% indicates that a LEFT SHIFT is Present. Ketones Test strip Ql (U)Ord ered By: Suman Lowe on 07-04-2023 Ketones Ql (U) Negative Negative [facility] Laboratory - Chemistry and C hemistry - challengeOrdered By: Suman Lowe on 07-04-2023 Albumin/Globulin [Mass ratio] 1.2 {ratio} 0.9-2.4 [facility] ALP [Catalytic activity/Vol] 97 U/L 45-117 [facility] ALT [Catalytic activity/Vol] 29 U/L 13-56 [facility] CO2 [Moles/Vol] 24.0 mmol/L 21.0-32.0 [facility] Globulin (S) [Mass/Vol] 3.2 g/dL 2.2-4.2 [facility] Lipase [Catalytic activity/Vol] 16 U/L 13-75 [facility] Comment on above: Please note:LIPASE r evised reference range effective 22. New Lipase methodology. Expected to produce lower values than the previous assay method. NEW Reference Range: 13 - 75 U/L Urea nitrogen/Creatinine [Mass ratio] 11.1 mg/mg 10-20 [facility] Laboratory - Hematology and Cell countsOrdered By: Suman Lowe on 07-04-2023 MCH (RBC) [Entitic mass] 31.4 pg 27.0-32.0 [facility] MCHC (RBC) [Mass/Vol] 32.2 g/dL 32-36 [facility] Nucleated RBC/100 WBC (Bld) [Ratio] 0 % 0-5 [facility] Platelet mean volume (Bld) [Entitic vol] 12.0 fL 6.2-12.0 [facility] Platelets (Bld) [#/Vol] 195 10*3/uL 150-450 [facility] Mucus LM Ql (Urine sed)Order ed By: Suman Lwoe on 07-04-2023 Mucus Ql (Urine sed) 0 SEEN /hpf [facility] Nitrite Test strip Ql (U)Ord ered By: Suman Lowe on 07-04-2023 Nitrite Ql (U) Negative Negative [facility] No Panel InformationOrdered By: Suman Lowe on 07-04-2023 Urine RBC 10-25 SEEN /hpf 0-5 [facility] Estimated Creatinine Clearance Calc 77.33 ml/min [facility] Estimated GFR (MDRD) Amer 99 mL/min >60 [facility] Comment on above: GFR Calc Estimated GFR (MDRD) Non-Af Amer 82 mL/min >60 [facility] Comment on above: Non- GFR Calc Protein Test strip Ql (U)Ord ered By: Suman Lowe on 07-04-2023 Protein Ql (U) 15 mg/dl Negative [facility] RBC Auto (Bld) [#/Vol]Ordere d By: Suman Lowe on 07-04-2023 RBC (Bld) [#/Vol] 4.33 10*6/uL 4.2-5.4 [facility] Serum or plasma calcium leslie urement (mass/volume)Ordered By: Suman Lowe on 07-04-2023 Calcium [Mass/Vol] 8.9 mg/dL 8.5-10.1 [facility] Serum or plasma choriogonado tropin detectionOrdered By: Suman Lowe on 07-04-2023 HCG ( test) Ql Negative [facility] Serum or plasma creatinine m easurement (mass/volume)Ordered By: Suman Lowe on 07-04-2023 Creatinine [Mass/Vol] 0.81 mg/dL 0.55-1.02 [facility] Comment on above: The validity of the calculated GFR & GFRAA in patients over 70 years has not been determined. Clinical correlation is essential. Serum or plasma urea nitroge n measurement (mass/volume)Ordered By: Suman Lowe on 07-04-2023 Urea nitrogen [Mass/Vol] 9 mg/dL 7-18 [facility] [facility] epithelial cells de tection in urine sediment by light microscopyOrdered By: Suman Lowe on 07-04-2023 Epithelial cells.squamous LM Ql (Urine sed) 0-5 SEEN /hpf 5-10 [facility] Thin prep Papanicolaou smear with manual screeningOrdered By: Suman Lowe on 07-04-2023 Thin prep Papanicolaou smear with manual screening 3.9 g/dL 3.2-5.0 [facility] Thin prep Papanicolaou smear with manual screening 24 U/L 15-37 [facility] Comment on above: Moderate Hemolysis, Result may be falsely increased. Thin prep Papanicolaou smear with manual screening 6 5-15 [facility] Urine blood detectionOrdered By: Suman Lowe on 07-04-2023 RBC Ql (U) 150 /ul Negative [facility] Urine clarityOrdered By: Malgorzata Lowe on 07-04-2023 Clarity (U) Clear Clear [facility] Urine color determinationOrd ered By: Suman Lowe on 07-04-2023 Color (U) Yellow Yellow [facility] Urine glucose detectionOrder ed By: Suman Lowe on 07-04-2023 Glucose Ql (U) Normal mg/dl Normal [facility] Urine leukocyte esterase det ection by dipstickOrdered By: Suman Lowe on 07-04-2023 Leukocyte esterase Test strip Ql (U) 25 /ul Negative [facility] Urine pHOrdered By: Suman maya on 07-04-2023 pH (U) 7.0 [pH] 5.0 - 8.0 [facility] Urine sediment bacteria coun t by microscopy (number/high power field)Ordered By: Suman Lowe on 07-04-2023 Bacteria LM.HPF (Urine sed) [#/Area] RARE /hpf None Seen [facility] Urine specific gravity measu rementOrdered By: Suman Lowe on 07-04-2023 Specific gravity (U) [Rel density] 1.010 1.002-1.03 0 [facility] Urine urobilinogen measureme ntOrdered By: Suman Lowe on 07-04-2023 Urobilinogen Ql (U) Normal mg/dl Normal [facility] No Panel InformationOrdered By: Babar Wood on 12-26-2022 Troponin I High Sensitivity 48 pg/mL 3.0-54.0 [facility] Comment on above: Please Note: New Linh t Units and Gender Specific Reference Ranges. For more information see Policy Stat Procedure Mears High Sensitivity Troponin (TNIH) and attachments. Absolute lymphocyte countOrd ered By: Babar Wood on 12-25-2022 Lymphocytes Auto (Unsp spec) [#/Vol] 1.77 10*3/uL 0.83-4.51 [facility] Basophil percentageOrdered B y: Babar Wood on 12-25-2022 Basophils/100 WBC (Bld) 0.6 % 0-1 [facility] Chloride [Moles/Vol] 110 mmol/L 98-107 [facility] Eosinophils/100 WBC (Bld) 1.1 % 0-5 [facility] Glucose [Mass/Vol] 100 mg/dL 74-106 [facility] Comment on above: Fasting Glucose resu lt from 100 to 125 mg/dL suggests IMPAIRED HOMEOSTASIS per A.D.A. criteria. Neutrophils (Bld) [#/Vol] 9.1 10*3/uL 2.0-7.7 [facility] Neutrophils/100 WBC (Bld) 78.0 % 47-70 [facility] Potassium [Moles/Vol] 4.2 mmol/L 3.5-5.1 [facility] Comment on above: Slight Hemolysis, Re sult may be falsely increased. Sodium [Moles/Vol] 140 mmol/L 136-145 [facility] WBC (Bld) [#/Vol] 11.7 10*3/uL 4.4-11.0 [facility] Blood erythrocytes count (nu mber/volume)Ordered By: Babar Wood on 12-25-2022 RBC (Bld) [#/Vol] 4.15 10*6/uL 4.2-5.4 [facility] Blood hemoglobin measurement (mass/volume)Ordered By: Babar Wood on 12-25-2022 Hemoglobin (Bld) [Mass/Vol] 13.1 g/dL 12.0-15.0 [facility] Blood lymphocytes/100 leukoc ytesOrdered By: Babar Wood on 12-25-2022 Lymphocytes/100 WBC (Bld) 15.2 % 19-41 [facility] Blood monocytes/100 leukocyt esOrdered By: Babar Wood on 12-25-2022 Monocytes/100 WBC (Bld) 4.8 % 0-10 [facility] Blood platelet mean volumeOr dered By: Babar Wood on 12-25-2022 Platelet mean volume (Bld) [Entitic vol] 10.7 fL 6.2-12.0 [facility] Determination of erythrocyte mean corpuscular volume (MCV)Ordered By: Babar Wood on 12-25-2022 MCV (RBC) [Entitic vol] 97.3 fL 81-99 [facility] Hematocrit Auto (Bld) [Volum e fraction]Ordered By: Babar Wood on 12-25-2022 Hematocrit (Bld) [Volume fraction] 40.4 % 37-47 [facility] INR in Blood by Coagulation assayOrdered By: Babar Wood on 12-25-2022 INR Coag (Bld) [Relative time] 1.1 {INR} [facility] Laboratory - Chemistry and C hemistry - challengeOrdered By: Babar Wood on 12-25-2022 CO2 [Moles/Vol] 24.0 mmol/L 21.0-32.0 [facility] Magnesium [Mass/Vol] 2.0 mg/dL 1.6-2.6 [facility] Comment on above: Slight Hemolysis, Re sult may be falsely increased. Urea nitrogen/Creatinine [Mass ratio] 13.0 mg/mg 10- [facility] Laboratory - CoagulationOrde red By: Babar Wood on 12-25-2022 aPTT Coag (Bld) [Time] 33.7 s 24.1-36.2 [facility] PT Coag (PPP) [Time] 14.1 s 11.7-14.9 [facility] Laboratory - Hematology and Cell countsOrdered By: Babar Wood on 12-25-2022 Erythrocyte distribution width (RBC) [Entitic vol] 48.4 fL 35.1-43.9 [facility] Erythrocyte distribution width (RBC) [Ratio] 13.5 % 11.6-14.6 [facility] Immature granulocytes/100 WBC (Bld) 0.300 % 0.0-0.9 [facility] Comment on above: IG% - Immature Granu locytes (promyelocytes, myelocytes and metamyelocytes) > 1% indicates that a LEFT SHIFT is Present. MCH (RBC) [Entitic mass] 31.6 pg 27.0-32.0 [facility] Nucleated RBC/100 WBC (Bld) [Ratio] 0 % 0-5 [facility] MCHC Auto (RBC) [Mass/Vol]Or dered By: Babar Wood on 12-25-2022 MCHC (RBC) [Mass/Vol] 32.4 g/dL 32-36 [facility] No Panel InformationOrdered By: Babar Wood on 12-25-2022 D-Dimer Quantitative (PE/DVT) 0.65 FEU/ug/m 0.27-0.49 [facility] Comment on above: CRITICAL VALUE VERIF IED. CALLED TO LUANA GARCIA RN ER12/25/22 1013 [facility].RESULTS READ BACK BY SAME . D-Dimer ELEVATED (>0.49): Additional studies and clinicalassessments are indicated to conclude diagnosis of:Deep Vein Thrombosis (DVT) or Pulmonary Embolism (PE) Estimated Creatinine Clearance Calc 62.64 ml/min [facility] Estimated GFR (MDRD) Amer 78 mL/min >60 [facility] Comment on above: GFR Calc Estimated GFR (MDRD) Non-Af Amer 64 mL/min >60 [facility] Comment on above: Non- GFR Calc Platelets bldOrdered By: Sarath Wood on 12-25-2022 Platelets (Bld) [#/Vol] 271 10*3/uL 150-450 [facility] Serum or plasma calcium leslie urement (mass/volume)Ordered By: Babar Wood on 12-25-2022 Calcium [Mass/Vol] 8.9 mg/dL 8.5-10.1 [facility] Serum or plasma creatinine m easurement (mass/volume)Ordered By: Babar Wood on 12-25-2022 Creatinine [Mass/Vol] 1.00 mg/dL 0.55-1.02 [facility] Comment on above: The validity of the calculated GFR & GFRAA in patients over 70 years has not been determined. Clinical correlation is essential. Serum or plasma urea nitroge n measurement (mass/volume)Ordered By: Babar Wood on 12-25-2022 Urea nitrogen [Mass/Vol] 13 mg/dL 7-18 [facility] Thin prep Papanicolaou smear with manual screeningOrdered By: Babar Wood on 12-25-2022 Thin prep Papanicolaou smear with manual screening 6 5-15 [facility] No Panel Informationon 12-17 Troponin I High Sensitivity 41 pg/mL 3.0-54.0 [facility] Work Phone: Comment on above: Please Note: New Linh t Units and Gender Specific Reference Ranges. For more information see Policy Stat Procedure [place] High Sensitivity Troponin (TNIH) and attachments. Absolute lymphocyte counton 12-16-2021 Lymphocytes Auto (Unsp spec) [#/Vol] 0.93 10*3/uL 0.83-4.51 [facility] Work Phone: Basophil percentageon 2021 Basophils/100 WBC (Bld) 0.7 % 0-1 [facility] Work Phone: Chloride [Moles/Vol] 108 mmol/L 98-107 [facility] Work Phone: Eosinophils/100 WBC (Bld) 1.2 % 0-5 [facility] Work Phone: Glucose [Mass/Vol] 114 mg/dL 74-106 [facility] Work Phone: Comment on above: Fasting Glucose resu lt from 100 to 125 mg/dL suggests IMPAIRED HOMEOSTASIS per A.D.A. criteria. Neutrophils (Bld) [#/Vol] 8.7 10*3/uL 2.0-7.7 [facility] Work Phone: Neutrophils/100 WBC (Bld) 78.7 % 47-70 [facility] Work Phone: Potassium [Moles/Vol] 4.2 mmol/L 3.5-5.1 [facility] Work Phone: Comment on above: Moderate Hemolysis, Result may be falsely increased. Sodium [Moles/Vol] 138 mmol/L 136-145 [facility] Work Phone: [phone] WBC (Bld) [#/Vol] 11.1 10*3/uL 4.4-11.0 [facility] Work Phone: [phone] Blood erythrocytes count (nu mber/volume)on 12-16-2021 RBC (Bld) [#/Vol] 4.49 10*6/uL 4.2-5.4 [facility] Work Phone: [phone] Blood hemoglobin measurement (mass/volume)on 12-16-2021 Hemoglobin (Bld) [Mass/Vol] 14.4 g/dL 12.0-15.0 [facility] Work Phone: [phone] Blood lymphocytes/100 leukoc yteson 12-16-2021 Lymphocytes/100 WBC (Bld) 8.4 % 19-41 [facility] Work Phone: [phone] Blood monocytes/100 leukocyt eson 12-16-2021 Monocytes/100 WBC (Bld) 10.1 % 0-10 [facility] Work Phone: [phone] Blood platelet mean volumeon 12-16-2021 Platelet mean volume (Bld) [Entitic vol] 11.5 fL 6.2-12.0 [facility] Work Phone: [phone] Determination of erythrocyte mean corpuscular volume (MCV)on 12-16-2021 MCV (RBC) [Entitic vol] 97.1 fL 81-99 [facility] Work Phone: [phone] Hematocrit Auto (Bld) [Volum e fraction]on 12-16-2021 Hematocrit (Bld) [Volume fraction] 43.6 % 37-47 [facility] Work Phone: [phone] Laboratory - Chemistry and C hemistry - challengeon 12-16-2021 CO2 [Moles/Vol] 24.0 mmol/L 21.0-32.0 [facility] Work Phone: [phone] Urea nitrogen/Creatinine [Mass ratio] 17.6 mg/mg 10-20 [facility] Work Phone: [phone] Laboratory - Hematology and Cell countson 12-16-2021 Erythrocyte distribution width (RBC) [Entitic vol] 46.6 fL 35.1-43.9 [facility] Work Phone: [phone] Erythrocyte distribution width (RBC) [Ratio] 13.0 % 11.6-14.6 [facility] Work Phone: [phone] Immature granulocytes/100 WBC (Bld) 0.900 % 0.0-0.9 [facility] Work Phone: [phone] Comment on above: IG% - Immature Granu locytes (promyelocytes, myelocytes and metamyelocytes) > 1% indicates that a LEFT SHIFT is Present. MCH (RBC) [Entitic mass] 32.1 pg 27.0-32.0 [facility] Work Phone: [phone] Nucleated RBC/100 WBC (Bld) [Ratio] 0 % 0-5 [facility] Work Phone: [phone] MCHC Auto (RBC) [Mass/Vol]on 12-16-2021 MCHC (RBC) [Mass/Vol] 33.0 g/dL 32-36 [facility] Work Phone: [phone] Panel Informationon 12-16 Estimated Creatinine Clearance Calc 74.45 ml/min [facility] Work Phone: [phone] Estimated GFR (MDRD) Amer 94 mL/min >60 [facility] Work Phone: [phone] Comment on above: GFR Calc Estimated GFR (MDRD) Non-Af Amer 77 mL/min >60 [facility] Work Phone: [phone] Comment on above: Non- GFR Calc Platelets bldon 12-16-2021 Platelets (Bld) [#/Vol] 227 10*3/uL 150-450 [facility] Work Phone: [phone] Serum or plasma calcium leslie urement (mass/volume)on 12-16-2021 Calcium [Mass/Vol] 9.5 mg/dL 8.5-10.1 [facility] Work Phone: [phone] Serum or plasma creatinine m easurement (mass/volume)on 12-16-2021 Creatinine [Mass/Vol] 0.85 mg/dL 0.55-1.02 [facility] Work Phone: Comment on above: The validity of the calculated GFR & GFRAA in patients over 70 years has not been determined. Clinical correlation is essential. Serum or plasma urea nitroge n measurement (mass/volume)on 12-16-2021 Urea nitrogen [Mass/Vol] 15 mg/dL 7-18 [facility] Work Phone: Thin prep Papanicolaou smear with manual screeningon 12-16-2021 Thin prep Papanicolaou smear with manual screening 6 5-15 [facility] Work Phone: CNDSon 04-27-2021 CNDS HNO ID: [id number] Author: Aj Mullins MD Service: Hospital Medicine [...] Attending Provider: Aj Mullins MD Primary Service: [facility] 2 REASON FOR HOSPITALIZATION: Chest pain SOB Acute [...] patient was then transferred and admitted to [facility] for further evaluation and management Lasix [...] not cleared for the discharge by the rn utilization management um Pt. Left the hospital in the evening [...] Ativan [Lorazepam] Vomiting - Azithromycin Intolerance - [place] Anaphylaxis - Fish Anaphylaxis - Levofloxacin In [...] Normal, Disp (more content not included)... Normal [facility] Basic Metabolic Panlon 04-26 Anion gap [Moles/Vol] 12 mmol/L Normal 9-18 [facility] Comment on above: Performed By: #### B BRITT LIPB, CBC ####[place] [id number] [place], [place] [phone] Calcium [Mass/Vol] 9.0 mg/dL Normal 8.5-10.5 [facility] Comment on above: Performed By: #### B BRITT LIPB, CBC ####[place] [id number] [place], [place] [phone] Chloride [Moles/Vol] 103 mmol/L Normal 98-110 [facility] Comment on above: Performed By: #### B BRITT, LIPB, CBC ####[place] [phone] CO2 [Moles/Vol] 21 mmol/L Low 23-32 [facility] Comment on above: Performed By: #### B FRANKLIN DE LA TORRE, CBC ####[place] [phone] Creatinine [Mass/Vol] 0.73 mg/dL Normal 0.70-1.40 [facility] Comment on above: Performed By: #### B FRANKLIN DE LA TORRE, CBC ####[place] [phone] eGFR- Amer. >60 Normal >59 [facility] Comment on above: Performed By: #### B FRANKLIN DE LA TORRE, CBC ####[place] [phone] eGFR-All Other Races >60 Normal >59 [facility] Comment on above: Result Comment: eGFR (Estimated [...] #### B FRANKLIN DE LA TORRE, CBC ####[place] [phone] Glucose [Mass/Vol] 87 mg/dL Normal 65-100 [facility] Comment on above: Performed By: #### B FRANKLIN DE LA TORRE, CBC ####[place] [phone] Potassium [Moles/Vol] 3.7 mmol/L Normal 3.5-5.0 [facility] Comment on above: Performed By: #### B MP, LIPB, CBC ####[place] [phone] Sodium [Moles/Vol] 136 mmol/L Normal 132-148 [facility] Comment on above: Performed By: #### B MP, LIPB, CBC ####[place] [phone] Urea nitrogen [Mass/Vol] 11 mg/dL Normal 8-25 [facility] Comment on above: Performed By: #### B MP, LIPB, CBC ####[place] [phone] CBCon 04-26-2021 Absolute nRBC <0.01 Normal <0.01 [facility] Comment on above: Performed By: #### B MP, LIPB, CBC ####[place] [phone] Erythrocyte distribution width (RBC) [Ratio] 13.3 % Normal 11.5-15.0 [facility] Comment on above: Performed By: #### B MP, LIPB, CBC ####[place] [phone] Hematocrit (Bld) [Volume fraction] 38.6 % Normal 36.0-46.0 [facility] Comment on above: Performed By: #### B MP, LIPB, CBC ####[place] [phone] Hemoglobin (Bld) [Mass/Vol] 12.5 g/dL Normal 11.5-15.5 [facility] Comment on above: Performed By: #### B MP, LIPB, CBC ####[place] [phone] MCH 31.2 pG Normal 26.0-34.0 [facility] Comment on above: Performed By: #### B MP, LIPB, CBC ####[place] [phone] MCHC (RBC) [Mass/Vol] 32.4 g/dL Normal 30.5-36.0 [facility] Comment on above: Performed By: #### B MP, LIPB, CBC ####[place] [phone] MCV (RBC) [Entitic vol] 96.3 fL Normal 80.0-100.0 [facility] Comment on above: Performed By: #### B MP, LIPB, CBC ####[place] [phone] Platelet mean volume (Bld) [Entitic vol] 11.7 fL Normal 9.0-12.7 [facility] Comment on above: Performed By: #### B MP, LIPB, CBC ####[place] [phone] Platelets (Bld) [#/Vol] 209 10*3/uL Normal 150-400 [facility] Comment on above: Performed By: #### B MP, LIPB, CBC ####[place] [phone] RBC (Bld) [#/Vol] 4.01 10*6/uL Normal 3.90-5.20 [facility] Comment on above: Performed By: #### B MP, LIPB, CBC ####[place] [phone] WBC (Bld) [#/Vol] 7.40 10*3/uL Normal 3.70-11.00 [facility] Comment on above: Performed By: #### B MP, LIPB, CBC ####[place] [phone] CK, Total and CKMBon 022 CK [Catalytic activity/Vol] 50 U/L Normal 30-220 [facility] Comment on above: Performed By: #### C KCKMB, SAULO #### [facility] [address] [place] [phone] CK MB % CK MB % not reported with CK <100 U/L. Normal 0.0-4.0 [facility] Comment on above: Performed By: #### C KCKMB, SAULO #### [facility] [address] [place] [phone] MB 3.6 ng/mL Normal 0.0-8.8 [facility] Comment on above: Performed By: #### C KCKMB, SAULO #### [facility] [address] [place] [phone] CONSULTon 04-26-2021 CONSULT HNO ID: [id number] Author: Tyrel Lane MD Service: Electrophysiology Author [...] be no charge for this consultation. Normal [facility] CONSULT PROGon 04-26-2021 CONSULT PROG HNO ID: [id number] Author: Gavino Zaragoza MD Service: Cardiovascular Medicine [...] CC echocardiographic exam performed on 01/18/2017 ([facility], [facility]). CTPE 04/25/2021: IMPRESSION: 1. ?Negative [...] mild LV dysfunction, will ask patient's outpatient [facility] rn utilization management um who manages her HCM to evaluate and consider BB and MARIAT inhibitor -EP to be consulted for the NSVT that were found on ICD interrogation -Still mildly overloaded, will reassess fluid status tomorrow morning for transition to PO diuretics - Exercise stress echo for chest pain Patient seen and discussed with Dr. Zaragoza SIGNATURE: Francisco Erickson APRN.WHEEL AND PINION INSPECTOR PATIENT NAME: Michelle Mitchell DATE: April 26, 2021 TIME: 2:38 PM PAGER/CONTACT #: [phone] For communication after 5 pm on weekdays and after 12 pm on weekends, please page the following: - [facility] consult : page [phone] - [facility] consult: page [phone] - [facility] Cardiology consult: page [phone] [facility] STAFF PHYSICIAN NOTE OF PERSONAL INVOLVE (more content not included)... Normal [facility] Lipid Panel, [place] 022 Cholesterol [Mass/Vol] 149 mg/dL Normal <200 [facility] Comment on above: Performed By: #### B MP, LIPB, CBC ####[place] [address] Cholesterol in HDL [Mass/Vol] 31 mg/dL Low >39 [facility] Comment on above: Performed By: #### B MP, LIPB, CBC ####[address] Cholesterol in LDL [Mass/Vol] 102 mg/dL High <100 [facility] Comment on above: Performed By: #### B MP, LIPB, CBC ####[address] LDL:HDL Ratio 3.29 High <2.54 [facility] Comment on above: Performed By: #### B MP, LIPB, CBC ####[place] [phone] Non HDL Cholesterol 118 mg/dL Normal <130 [facility] Comment on above: Performed By: #### B MP, LIPB, CBC ####[place] [phone] TC:HDL Ratio 4.81 Normal <5.10 [facility] Comment on above: Performed By: #### B MP, LIPB, CBC ####[place] [phone] Triglyceride [Mass/Vol] 82 mg/dL Normal <150 [facility] Comment on above: Performed By: #### B MP, LIPB, CBC ####[place] [id number] [place], [place] [phone] VLDL Cholesterol 16 mg/dL Normal <30 [facility] Comment on above: Performed By: #### B FRANKLIN DE LA TORRE, CBC ####[address] [phone] NURSING PROGon 04-26-2021 NURSING PROG HNO ID: [id number] Author: Vance Everett RN Service: ? Author Type: Registered Nurse Type: Nursing Progress Note Filed: 04/26/2021 8:46 PM Note Text: Nursing Progress Note Patient Name: Michelle Mitchell Patient Location: [id number] 10-13 Daily Note: 1934 - Michelle Mitchell, 5 pav 558-2, pt complaining of 8/10 chest pain, states no relief from tylenol. Requesting alternative. Dontrell Mclaughlin [phone] - Michelle Mitchell, 5 pav 558-2, pt states son in car accident, patient leaving AMA when able to pick her up. Thanks -Devonte [phone] - Michelle Mitchell, 5 pav 558-2 pt asking if she can have script for Lasix prior to leaving to be compliant with treatment. Thanks -Devonte [phone] This note was completed by: Vance Everett [facility] NURSING PROG HNO ID: [id number] Author: Kendal Strange RN Service: ? Author Type: Registered Nurse Type: Nursing Progress Note Filed: 04/26/2021 4:23 PM Note Text: Nursing Progress Note Patient Name: Michelle Mitchell Patient Location: [id number]/[place] [address] 10-13 928 Pt sitting up in bed, c/o [...] that we could provide her with hospital bottoms. Attempting to provide everything the pt needs. This note was completed by: Kendal Strange Normal [facility] Troponin Ton 04-26-2021 Troponin T.cardiac [Mass/Vol] 0.023 ug/L Normal 0.000-0.02 9 [facility] Comment on above: Performed By: #### C KCKMB, SAULO #### [facility] [address] [place] [address] CBC and Differentialon 04-25 Abs Baso 0.06 k/uL Normal <0.11 [facility] Comment on above: Performed By: #### T NT, CBCDIF, CMP ####[phone] Abs [place] 0.72 k/uL Normal <0.87 [facility] Comment on above: Performed By: #### T NT, CBCDIF, CMP ####[phone] Abs Neut 7.11 k/uL Normal 1.45-7.50 [facility] Comment on above: Performed By: #### T NT, CBCDIF, CMP ####[phone] Absolute nRBC <0.01 Normal <0.01 [facility] Comment on above: Performed By: #### T NT, CBCDIF, CMP ####[place] [phone] Basophils/100 WBC (Bld) 0.6 % Normal [facility] Comment on above: Performed By: #### T NT, CBCDIF, CMP ####[place] [phone] DTYPE Auto Diff Normal [facility] Comment on above: Performed By: #### T NT, CBCDIF, CMP ####[place] [phone] Eosinophils (Bld) [#/Vol] 0.10 10*3/uL Normal <0.46 [facility] Comment on above: Performed By: #### T NT, CBCDIF, CMP ####[place] [phone] Eosinophils/100 WBC (Bld) 1.0 % Normal [facility] Comment on above: Performed By: #### T NT, CBCDIF, CMP ####[place] [phone] Erythrocyte distribution width (RBC) [Ratio] 13.5 % Normal 11.5-15.0 [facility] Comment on above: Performed By: #### T NT, CBCDIF, CMP ####[place] [phone] Hematocrit (Bld) [Volume fraction] 38.0 % Normal 36.0-46.0 [facility] Comment on above: Performed By: #### T NT, CBCDIF, CMP ####[place] [phone] Hemoglobin (Bld) [Mass/Vol] 11.9 g/dL Normal 11.5-15.5 [facility] Comment on above: Performed By: #### T NT, CBCDIF, CMP ####[place] [phone] Lymphocytes (Bld) [#/Vol] 1.73 10*3/uL Normal 1.00-4.00 [facility] Comment on above: Performed By: #### T NT, CBCDIF, CMP ####[place] [phone] Lymphocytes/100 WBC (Bld) 17.8 % Normal [facility] Comment on above: Performed By: #### T NT, CBCDIF, CMP ####[place] [phone] MCH 30.7 pG Normal 26.0-34.0 [facility] Comment on above: Performed By: #### T NT, CBCDIF, CMP ####[phone] MCHC (RBC) [Mass/Vol] 31.3 g/dL Normal 30.5-36.0 [facility] Comment on above: Performed By: #### T NT, CBCDIF, CMP ####[place] [phone] MCV (RBC) [Entitic vol] 98.2 fL Normal 80.0-100.0 [facility] Comment on above: Performed By: #### T NT, CBCDIF, CMP ####[place] [place] [phone] Monocytes/100 WBC (Bld) 7.4 % Normal [facility] Comment on above: Performed By: #### T NT, CBCDIF, CMP ####[place] [phone] Neutrophils/100 WBC (Bld) 73.2 % Normal [facility] Comment on above: Performed By: #### T NT, CBCDIF, CMP ####[place] [phone] NRBCs 0.0 /100 WBC Normal 0 [facility] Comment on above: Performed By: #### T NT, CBCDIF, CMP ####[place] [phone] Platelet mean volume (Bld) [Entitic vol] 12.5 fL Normal 9.0-12.7 [facility] Comment on above: Performed By: #### T NT, CBCDIF, CMP ####[place] [phone] Platelets (Bld) [#/Vol] 192 10*3/uL Normal 150-400 [facility] Comment on above: Performed By: #### T NT, CBCDIF, CMP ####[place] [phone] RBC (Bld) [#/Vol] 3.87 10*6/uL Low 3.90-5.20 [facility] Comment on above: Performed By: #### T NT, CBCDIF, CMP ####[place] [phone] WBC (Bld) [#/Vol] 9.72 10*3/uL Normal 3.70-11.00 [facility] Comment on above: Performed By: #### T NT, CBCDIF, CMP ####[place] [phone] CK, Total and CKMBon 022 CK [Catalytic activity/Vol] 65 U/L Normal 30-220 [facility] Comment on above: Performed By: #### T NT, CKCKMB ####[address] [phone] CK MB % CK MB % not reported with CK <100 U/L. Normal 0.0-4.0 [facility] Comment on above: Performed By: #### T NT, CKCKMB ####[address] [phone] MB 3.5 ng/mL Normal 0.0-8.8 [facility] Comment on above: Performed By: #### T NT, CKCKMB ####[address] [phone] CONSULTon 04-25-2021 CONSULT HNO ID: [id number] Author: Gaivno Zaragoza MD Service: Cardiovascular Medicine Author Type: Physician Type: Consults Filed: 04/25/2021 6:10 PM Note Text: [facility] CARDI[facility]ASCULAR MEDICINE CONSULT NOTE (Template ID [id number]) Michelle Mitchell [id number] PRIMARY SERVICE: Internal Medicine CONSULTING SERVICE: Cardiovascular [...] had fluid in her lungs. In the [place] ED noted marginally elevated high sensitivity troponin, concerns for NSTEMI, therefore was transferred to [facility] for further evaluation of symptoms. Has not seen her own rn utilization management um for quite sometime due to covid. Developed [...] PERMANENT TRANSVENOUS PACEMAKER INSERTION 2006 ICD implant, [facility] - ANESTHESIA TUBAL LIGATION/TRANSECTION - [...] mL (BD (more content not included)... Normal [facility] Comp Metabolic Panelon 04-25 Albumin [Mass/Vol] 4.1 g/dL Normal 3.5-5.0 [facility] Comment on above: Performed By: #### T NT, CBCDIF, CMP ####[facility] [place], [place] [phone] ALP [Catalytic activity/Vol] 131 U/L High 34-123 [facility] Comment on above: Performed By: #### T NT, CBCDIF, CMP ####[place] [phone] ALT [Catalytic activity/Vol] 30 U/L Normal 0-45 [facility] Comment on above: Performed By: #### T NT, CBCDIF, CMP ####[place] [phone] Anion gap [Moles/Vol] 12 mmol/L Normal 9-18 [facility] Comment on above: Performed By: #### T NT, CBCDIF, CMP ####[phone] AST [Catalytic activity/Vol] 26 U/L Normal 7-40 [facility] Comment on above: Performed By: #### T NT, CBCDIF, CMP ####[place] [phone] Bilirubin [Mass/Vol] 1.0 mg/dL Normal 0.2-1.3 [facility] Comment on above: Performed By: #### T NT, CBCDIF, CMP ####[place] [phone] Calcium [Mass/Vol] 9.1 mg/dL Normal 8.5-10.5 [facility] Comment on above: Performed By: #### T NT, CBCDIF, CMP ####[place] [phone] Chloride [Moles/Vol] 103 mmol/L Normal 98-110 [facility] Comment on above: Performed By: #### T NT, CBCDIF, CMP ####[place] [phone] CO2 [Moles/Vol] 23 mmol/L Normal 23-32 [facility] Comment on above: Performed By: #### T NT, CBCDIF, CMP ####[place] [phone] Creatinine [Mass/Vol] 0.71 mg/dL Normal 0.70-1.40 [facility] Comment on above: Performed By: #### T NT, CBCDIF, CMP ####[address] [phone] eGFR- Amer. >60 Normal >59 [facility] Comment on above: Performed By: #### T NT, CBCDIF, CMP ####[place] [phone] eGFR-All Other Races >60 Normal >59 [facility] Comment on above: Result Comment: eGFR (Estimated [...] Performed By: #### T NT, CBCDIF, CMP ####[place] [phone] Glucose [Mass/Vol] 92 mg/dL Normal 65-100 [facility] Comment on above: Performed By: #### T NT, CBCDIF, CMP ####[place] [phone] Potassium [Moles/Vol] 3.7 mmol/L Normal 3.5-5.0 [facility] Comment on above: Performed By: #### T NT, CBCDIF, CMP ####[place] [phone] Protein [Mass/Vol] 6.6 g/dL Normal 6.0-8.4 [facility] Comment on above: Performed By: #### T NT, CBCDIF, CMP ####[place] [id number] [place], [place] [phone] Sodium [Moles/Vol] 138 mmol/L Normal 132-148 [facility] Comment on above: Performed By: #### T NT, CBCDIF, CMP ####[place] [id number] [place], [place] [phone] Urea nitrogen [Mass/Vol] 4 mg/dL Low 8-25 [facility] Comment on above: Performed By: #### T NT, CBCDIF, CMP ####[place] [id number] [place], [place] [phone] HISTORY PHYSICALon HISTORY PHYSICAL HNO ID: [id number] Author: Aj Mullins MD Service: Hospital Medicine [...] It's of pressure sensation feeling like sandra aleyda is sitting on my chest" and exacerbated by deep inspiration and moving in her bed. No relieving factors were identified. Her symptoms also included dizziness, headache, right jaw pain, and nausea without vomiting. She otherwise denies palpitations, bilateral LE swelling, feeling of hotness, chills, and diarrhea. She works in [employer]. She used to be a smoker of [...] patient was then transferred and admitted to [facility] for further evaluation and management. PAST [...] PERMANENT TRANSVENOUS PACEMAKER INSERTION 2006 ICD implant, [facility] - ANESTHESIA TUBAL LIGATION/TRANSECTION - [...] Reported HOCM, (more content not included)... Normal [facility] Hemoglobin A1con 04-25-2021 Glucose [Mass/Vol] 103 mg/dL Normal [facility] Comment on above: Result Comment: eAG: (Estimated average glucose) is a calculated value from HgbA1c and is business office representative of the average blood glucose level in the last 2-3 month period. Performed By: #### T SH #### [facility] [address] [place] [address] #### HBA1C #### [facility] [employer] [address] [place], [place] [address] HbA1c (Bld) [Mass fraction] 5.2 % Normal 4.3-5.6 [facility] Comment on above: Result Comment: Amer ican Diabetes Association guidelines indicate that patients with HgbA1c in the range 5.7-6.4% are at increased risk for development of diabetes, and intervention by lifestyle modification may be beneficial. HgbA1c greater or equal to 6.5% is considered diagnostic of diabetes. Performed By: #### T SH #### [facility] [address] [place] [address] #### HBA1C #### [facility] [address] [place] [phone] NT Pro BNPon 04-25-2021 PRO B Natr Peptide 1979 pg/mL High <125 [facility] Comment on above: Performed By: #### N TBNP #### [place] [phone] NURSING PROGon 04-25-2021 NURSING PROG HNO ID: [id number] Author: Vance Everett RN Service: ? Author Type: Registered Nurse Type: Nursing Progress Note Filed: 04/25/2021 9:39 PM Note Text: Nursing Progress Note Patient Name: Michelle Mitchell Patient Location: [place] [address] [address] 10-13 Daily Note: paged hospitalist Michelle Mitchell, 2, pt requesting something stronger for pain than Tylenol. Per pt, Susanna withheld morphine d/t low BP, now 115/60. Thanks -Devonte [phone] Resident requested attempting another dose of tylenol instead of an alternative, and to page back if tylenol ineffective. Tylenol administered. 2127 - Michelle Mitchell, 5 -2, pt given Tylenol an hour ago, still no pain relief, 11/21 per patient. Patient requesting alternative pain medication. Thanks -Devonte [phone] This note was completed by: Vance Everett [facility] NURSING PROG HNO ID: [id number] Author: Kendal Strange RN Service: ? Author [...] This note was completed by: Kendal Strange [facility] NURSING PROG HNO ID: [id number] Author: Sabrina Barbosa RN Service: ? Author Type: Registered Nurse Type: Nursing Progress Note Filed: 04/25/2021 6:53 AM Note Text: Nursing Progress Note Patient Name: Michelle Mitchell Patient Location: /10-13 Daily Note: Paged hospitalist admit pager " [facility] Michelle Mitchell. Pt is c/o 8/10 chest/jaw pain. can she get something? thanks, rose ext [phone] Prn nitro was ordered, pt refused. States it does not help her and will give her a migraine and make her feel worse. Pt did receive morphine at [facility] and stated that it helped with her pain then. Morphine is listed on allergy list but she states that it's not a true allergy. Paged hospitalist admit pager " [address] [place] [address] [phone] Michelle Mitchell. Pt refusing nitro, had morphine at [facility] says it helped and isn't a true allergy. Rose ext [phone]" This note was completed by: [facility] NURSING PROG HNO ID: [id number] Author: Sabrina Barbosa RN Service: ? Author Type: Registered Nurse Type: Nursing Progress Note Filed: 04/25/2021 6:00 AM Note Text: Nursing Progress Note Patient Name: Michelle Mitchell Patient Location: [place] [address] [address] 10-13 Transfer Note: Patient transferred into room/unit 558-2 in stable condition. Actions taken: No futher actions taken at this time. Will continue to monitor and check with patient. This note was completed by: [facility] TSHon 04-25-2021 TSH Qn 3.510 m[IU]/L Normal 0.270-4.20 0 [facility] Comment on above: Result Comment: If [...] Recio, et al. 2017 Guidelines of the [place] Thyroid Association for the Diagnosis and Management of Thyroid Disease during and the . Thyroid, 2017:27:3:315-389. Performed By: #### T SH #### [place] [phone] #### HBA1C #### [facility] [address] [place] [address] Troponin Ton 04-25-2021 Troponin T.cardiac [Mass/Vol] 0.028 ug/L Normal 0.000-0.[address] [place] [address] Comment on above: Performed By: #### T NT #### [place] [phone] Troponin T.cardiac [Mass/Vol] 0.026 ug/L Normal 0.000-0.[address] [place] [address] Comment on above: Performed By: #### T NT ####[place] [phone] Troponin T.cardiac [Mass/Vol] 0.029 ug/L Normal 0.000-0.[address] [place] [address] Comment on above: Performed By: #### T NT, CKCKMB ####[place] [phone] Troponin T.cardiac [Mass/Vol] 0.028 ug/L Normal 0.000-0.[address] [place] [address] Comment on above: Performed By: #### T NT, CBCDIF, CMP ####[place] [phone] XR ANKLE 3V AP/LAT/OBL RTon 11-04-2020 XR [...] No dislocation or acute fracture lucency detected. Hydrogenation Operator: PSCB Transcribe Date/Time: Nov 04 2020 1:46A Dictated by : SHAKIRA LOVETT MD This examination was interpreted and the report reviewed and electronically signed by: SHAKIRA LOVETT MD on Nov 04 2020 1:47AM EST [id number] Normal [facility] Bacteria Bld Culton 09-19-19 Bacteria identified Cx Nom (Bld) CULTURE, BLOOD: No growth 5 days Normal [facility] Comment on above: Performed By: #### 6 00-7 #### [facility] CLIA [id number] [address] [place] [address] Bacteria identified Cx Nom (Bld) CULTURE, BLOOD: No growth 5 days Normal [facility] Comment on above: Performed By: #### 6 00-7 #### [facility] CLIA [id number] [address] [place] [address] CBC W Auto Differential pane l (Bld)on 09-18-2020 Basophils (Bld) [#/Vol] 0.03 10*3/uL Normal <0.11 [facility] Comment on above: Order Comment: Speci men Type: BLOOD SPECIMEN Performed By: #### 2 4323-8 #### [facility] CLIA [id number] [address] [place] [address] [place] Basophils/100 WBC (Bld) 0.3 % Normal A [facility] Comment on above: Order Comment: Speci men Type: BLOOD SPECIMEN Performed By: #### 2 4323-8 #### [facility] CLIA [id number] [address] [place] [address] [place] Differential cell count method Nom (Bld) Auto Normal [facility] Comment on above: Order Comment: Speci men Type: BLOOD SPECIMEN Performed By: #### 2 4323-8 #### [facility] CLIA [id number] [address] [place] [address] [facility] Eosinophils (Bld) [#/Vol] 0.06 10*3/uL Normal <0.46 [facility] Comment on above: Order Comment: Speci men Type: BLOOD SPECIMEN Performed By: #### 2 4323-8 #### [facility] CLIA [id number] [address] [place] [address] [place] Eosinophils/100 WBC (Bld) 0.7 % Normal [facility] Comment on above: Order Comment: Speci men Type: BLOOD SPECIMEN Performed By: #### 2 4323-8 #### [facility] CLIA [id number] [address] [place] [address] [facility] [place] Erythrocyte distribution width (RBC) [Ratio] 13.2 % Normal 11.5-15.0 [facility] Comment on above: Order Comment: Speci men Type: BLOOD SPECIMEN Performed By: #### 2 4323-8 #### [facility] CLIA [id number] [address] [place] [address] [facility] Hematocrit (Bld) [Volume fraction] 42.4 % Normal 36.0-46.0 [facility] Comment on above: Order Comment: Speci men Type: BLOOD SPECIMEN Performed By: #### 2 4323-8 #### [facility] CLIA [id number] [address] [place] [address] [place] Hemoglobin (Bld) [Mass/Vol] 13.9 g/dL Normal 11.5-15.5 [facility] Comment on above: Order Comment: Speci men Type: BLOOD SPECIMEN Performed By: #### 2 4323-8 #### [facility] CLIA [id number] [address] [place] [address] [place] Lymphocytes (Bld) [#/Vol] 0.53 10*3/uL Low 1.00-4.00 [facility] Comment on above: Order Comment: Speci men Type: BLOOD SPECIMEN Performed By: #### 2 4323-8 #### [facility] CLIA [id number] [address] [place] [address] [facility] Lymphocytes/100 WBC (Bld) 6.1 % Normal [facility] Comment on above: Order Comment: Speci men Type: BLOOD SPECIMEN Performed By: #### 2 4323-8 #### [facility] CLIA [id number] [address] [facility] [place] [address] [place] MCH (RBC) [Entitic mass] 30.8 pg Normal 26.0-34.0 [facility] Comment on above: Order Comment: Speci men Type: BLOOD SPECIMEN Performed By: #### 2 4323-8 #### [facility] CLIA [id number] [address] [place] [address] [place] MCHC (RBC) [Mass/Vol] 32.8 g/dL Normal 30.5-36.0 [facility] Comment on above: Order Comment: Speci men Type: BLOOD SPECIMEN Performed By: #### 2 4323-8 #### [facility] CLIA [id number] [address] [facility] [place] [address] [facility] [place] MCV (RBC) [Entitic vol] 93.8 fL Normal 80.0-100.0 [facility] Comment on above: Order Comment: Speci men Type: BLOOD SPECIMEN Performed By: #### 2 4323-8 #### [facility] CLIA [id number] [address] [place] [address] [place] Monocytes (Bld) [#/Vol] 0.73 10*3/uL Normal <0.87 [facility] Comment on above: Order Comment: Speci men Type: BLOOD SPECIMEN Performed By: #### 2 4323-8 #### [facility] CLIA [id number] [address] [place] [address] [place] Monocytes/100 WBC (Bld) 8.4 % Normal A [facility] Comment on above: Order Comment: Speci men Type: BLOOD SPECIMEN Performed By: #### 2 4323-8 #### [facility] CLIA [id number] [address] [facility] [place] [address] [place] Neutrophils (Bld) [#/Vol] 7.34 10*3/uL Normal 1.45-7.50 [facility] Comment on above: Order Comment: Speci men Type: BLOOD SPECIMEN Performed By: #### 2 4323-8 #### [facility] CLIA [id number] [address] [place] [address] [facility] Neutrophils/100 WBC (Bld) 84.5 % Normal [facility] Comment on above: Order Comment: Speci men Type: BLOOD SPECIMEN Performed By: #### 2 4323-8 #### [facility] CLIA [id number] [address] [facility] [place] [address] [place] Platelet mean volume (Bld) [Entitic vol] 11.3 fL Normal 9.0-12.7 [facility] Comment on above: Order Comment: Speci men Type: BLOOD SPECIMEN Performed By: #### 2 4323-8 #### [facility] CLIA [id number] [address] [facility] [place] [address] [place] Platelets (Bld) [#/Vol] 240 10*3/uL Normal 150-400 [facility] Comment on above: Order Comment: Speci men Type: BLOOD SPECIMEN Performed By: #### 2 4323-8 #### [facility] CLIA [id number] [address] [facility] [place] [address] [place] RBC (Bld) [#/Vol] 4.52 10*6/uL Normal 3.90-5.20 [facility] Comment on above: Order Comment: Speci men Type: BLOOD SPECIMEN Performed By: #### 2 4323-8 #### [facility] CLIA [id number] [address] [facility] [place] [address] [facility] WBC (Bld) [#/Vol] 8.69 10*3/uL Normal 3.70-11.00 [facility] Comment on above: Order Comment: Speci men Type: BLOOD SPECIMEN Performed By: #### 2 4323-8 #### [facility] CLIA [id number] [address] [facility] [place] [address] [facility] Comprehensive metabolic 2000 panelon 09-18-2020 Albumin [Mass/Vol] 4.6 g/dL Normal 3.9-4.9 [facility] Comment on above: Order Comment: Speci men Type: BLOOD SPECIMEN Performed By: #### 2 4323-8 #### [facility] CLIA [id number] [address] [facility] [place] [address] [facility] ALP [Catalytic activity/Vol] 117 U/L Normal 34-123 [facility] Comment on above: Order Comment: Speci men Type: BLOOD SPECIMEN Performed By: #### 2 4323-8 #### [facility] CLIA [id number] [address] [place] [address] [place] ALT With P-5'-P [Catalytic activity/Vol] 16 U/L Normal 7-38 [facility] Comment on above: Order Comment: Speci men Type: BLOOD SPECIMEN Performed By: #### 2 4323-8 #### [facility] CLIA [id number] [address] [facility] [place] [address] [place] Anion gap [Moles/Vol] 11 mmol/L Normal 9-18 [facility] Comment on above: Order Comment: Speci men Type: BLOOD SPECIMEN Performed By: #### 2 4323-8 #### [facility] CLIA [id number] [address] [place] [address] [place] AST With P-5'-P [Catalytic activity/Vol] 15 U/L Normal 13-35 [facility] Comment on above: Order Comment: Speci men Type: BLOOD SPECIMEN Performed By: #### 2 4323-8 #### [facility] CLIA [id number] [address] [place] [address] [place] Bilirubin [Mass/Vol] 0.5 mg/dL Normal 0.2-1.3 [facility] Comment on above: Order Comment: Speci men Type: BLOOD SPECIMEN Performed By: #### 2 4323-8 #### [facility] CLIA [id number] [address] [facility] [place] [address] [place] Calcium [Mass/Vol] 10.0 mg/dL Normal 8.5-10.2 [facility] Comment on above: Order Comment: Speci men Type: BLOOD SPECIMEN Performed By: #### 2 4323-8 #### [facility] CLIA [id number] [address] [facility] [place] [address] [place] Chloride [Moles/Vol] 102 mmol/L Normal 97-105 [facility] Comment on above: Order Comment: Speci men Type: BLOOD SPECIMEN Performed By: #### 2 4323-8 #### [facility] CLIA [id number] [address] [facility] [place] [address] [place] CO2 [Moles/Vol] 25 mmol/L Normal 22-30 [facility] Comment on above: Order Comment: Speci men Type: BLOOD SPECIMEN Performed By: #### 2 4323-8 #### [facility] CLIA [id number] [address] [facility] [place] [address] [place] Creatinine [Mass/Vol] 0.73 mg/dL Normal 0.58-0.96 [facility] Comment on above: Order Comment: Speci men Type: BLOOD SPECIMEN Performed By: #### 2 4323-8 #### [facility] CLIA [id number] [address] [facility] [place] [address] [place] GFR/1.73 sq M.predicted among blacks MDRD (S/P/Bld) [Vol rate/Area] mL/min/{1.73_m2} Normal [facility] Comment on above: Order Comment: Speci men Type: BLOOD SPECIMEN Performed By: #### 2 4323-8 #### [facility] CLIA [id number] [address] [place] [address] [place] GFR/1.73 sq M.predicted among non-blacks MDRD (S/P/Bld) [Vol rate/Area] mL/min/{1.73_m2} Normal [facility] Comment on above: Order Comment: Speci [...] GFR. Performed By: #### 2 4323-8 #### [facility] CLIA [id number] [address] [place] [address] [place] Glucose [Mass/Vol] 94 mg/dL Normal 74-99 [facility] Comment on above: Order Comment: Speci men Type: BLOOD SPECIMEN Result Comment: The [place] Diabetes Association (ADA) provides guidance for cutoff [...] Standards of Medical Care in Diabetes 2016, [place] Diabetes Association. Diabetes Care. 2016.39(Suppl 1). Performed By: #### 2 4323-8 #### [facility] CLIA [id number] [address] [place] [address] [place] Potassium [Moles/Vol] 3.5 mmol/L Low 3.7-5.1 [facility] Comment on above: Order Comment: Speci men Type: BLOOD SPECIMEN Performed By: #### 2 4323-8 #### [facility] CLIA [id number] [address] [place] [address] [place] [facility] Protein [Mass/Vol] 7.6 g/dL Normal 6.3-8.0 [facility] Comment on above: Order Comment: Speci men Type: BLOOD SPECIMEN Performed By: #### 2 4323-8 #### [facility] CLIA [id number] [address] [place] [address] [facility] Sodium [Moles/Vol] 138 mmol/L Normal 136-144 [facility] Comment on above: Order Comment: Speci men Type: BLOOD SPECIMEN Performed By: #### 2 4323-8 #### [facility] CLIA [id number] [address] [place] [address] [place] [facility] Urea nitrogen [Mass/Vol] 4 mg/dL Low 7-21 [facility] Comment on above: Order Comment: Speci men Type: BLOOD SPECIMEN Performed By: #### 2 4323-8 #### [facility] CLIA [id number] [address] [place] [address] [place] HCG Preg Ur Qlon 09-18-2020 HCG ( test) Ql (U) Negative Normal Negative [facility] Comment on above: Order Comment: Speci men Type: BLOOD SPECIMEN Result Comment: This test is intended to aid in the early detection of . Very dilute urine samples, as indicated by a low specific gravity, may not contain business office representative levels of hCG. This test detects [...] . Performed By: #### 2 4323-8 #### [facility] CLIA [id number] [address] HIGH SENSITIVITY TROPONIN To n 09-18-2020 HIGH SENSITIVITY SAULO 13 ng/L High <12 [facility] Comment on above: Order Comment: Speci [...] MACE. Performed By: #### H STNT #### [facility] CLIA [id number] [address] HIGH SENSITIVITY SAULO 13 ng/L High <12 [facility] Comment on above: Order Comment: Speci [...] MACE. Performed By: #### H STNT #### [facility] CLIA [id number] [address] [id number] [facility] Lactate (Bld) [Moles/Vol]on 09-18-2020 Lactate [Moles/Vol] 1.3 mmol/L Normal 0.5-2.2 [facility] Comment on above: Order Comment: Speci men Type: BLOOD SPECIMEN Performed By: #### 2 4323-8 #### [facility] CLIA [id number] [address] [place] [address] [place] RAPID GROUP A STREP RFLX TO CULTon 09-18-2020 S. pyogenes Ag IA Ql (Unsp spec) GROUP A STREP ANTIGEN: Negative Group A Strep Screen Culture negative for Beta Strep Group A Normal [facility] Comment on above: Order Comment: Speci men Type: BLOOD SPECIMEN Performed By: #### 2 4323-8 #### [facility] CLIA [id number] [address] [facility] [place] [address] [facility] [place] Urinalysis complete panel (U )on 09-18-2020 Bilirubin Ql (U) Negative Normal Negative [facility] Comment on above: Order Comment: Speci men Type: BLOOD SPECIMEN Performed By: #### 2 4323-8 #### [facility] CLIA [id number] [address] [place] [address] [facility] Clarity (Unsp spec) Clear Normal Clear [facility] Comment on above: Order Comment: Speci men Type: BLOOD SPECIMEN Performed By: #### 2 4323-8 #### [facility] CLIA [id number] [address] [place] [address] [facility] Color (U) Yellow Normal Yellow [facility] Comment on above: Order Comment: Speci men Type: BLOOD SPECIMEN Performed By: #### 2 4323-8 #### [facility] CLIA [id number] [address] [place] [address] [facility] Epithelial cells LM.HPF (Urine sed) [#/Area] Few Normal [facility] Comment on above: Order Comment: Speci men Type: BLOOD SPECIMEN Performed By: #### 2 4323-8 #### [facility] CLIA [id number] [address] [place] [address] [facility] Glucose Test strip (U) [Mass/Vol] Negative Normal Negative [facility] Comment on above: Order Comment: Speci men Type: BLOOD SPECIMEN Performed By: #### 2 4323-8 #### [facility] CLIA [id number] [address] [facility] [place] [address] [facility] [place] Hemoglobin Ql (U) 2+ Abnormal Negative [facility] Comment on above: Order Comment: Speci men Type: BLOOD SPECIMEN Performed By: #### 2 4323-8 #### [facility] CLIA [id number] [address] [facility] [place] [address] [facility] Ketones Ql (U) Negative Normal Negative [facility] Comment on above: Order Comment: Speci men Type: BLOOD SPECIMEN Performed By: #### 2 4323-8 #### [facility] CLIA [id number] [address] [facility] [place] [address] [facility] Leukocyte esterase Test strip Ql (U) Negative Normal Negative [facility] Comment on above: Order Comment: Speci men Type: BLOOD SPECIMEN Performed By: #### 2 4323-8 #### [facility] CLIA [id number] [address] [facility] [place] [address] [facility] Nitrite Ql (U) Negative Normal Negative [facility] Comment on above: Order Comment: Speci men Type: BLOOD SPECIMEN Performed By: #### 2 4323-8 #### [facility] CLIA [id number] [address] [facility] [place] [address] [place] pH (U) 7.0 [pH] Normal 5.0-8.0 [facility] Comment on above: Order Comment: Speci men Type: BLOOD SPECIMEN Performed By: #### 2 4323-8 #### [facility] CLIA [id number] [address] [facility] [place] [address] [facility] [place] Protein (U) [Mass/Vol] Normal [facility] Comment on above: Order Comment: Speci men Type: BLOOD SPECIMEN Result Comment: Visi ble blood causes falsely elevated results for analyte Protein. Due to this limitation, Protein will not be reported for patients whose urine contains visible blood. Performed By: #### 2 4323-8 #### [facility] CLIA [id number] [address] [facility] [place] [address] [facility] [place] RBC LM.HPF (Urine sed) [#/Area] 0-3 /HPF Normal 0-3 /HPF [facility] Comment on above: Order Comment: Speci men Type: BLOOD SPECIMEN Performed By: #### 2 4323-8 #### [facility] CLIA [id number] [address] [id number] [facility] Specific gravity (U) [Rel density] 1.015 Normal 1.005-1.03 0 [facility] Comment on above: Order Comment: Speci men Type: BLOOD SPECIMEN Performed By: #### 2 4323-8 #### [facility] CLIA [id number] [address] [phone] [facility] Urobilinogen Ql (U) 0.2 EU/dL Normal 0.2-1.0 EU/dL [facility] Comment on above: Order Comment: Speci men Type: BLOOD SPECIMEN Performed By: #### 2 4323-8 #### [facility] CLIA [id number] [address] WBC LM.HPF (Urine sed) [#/Area] 0-5 /HPF Normal 0-5 /HPF [facility] Comment on above: Order Comment: Speci men Type: BLOOD SPECIMEN Performed By: #### 2 4323-8 #### [facility] CLIA [id number] [address] [place] [address] XR CHEST 1V FRONTALon 2020 XR CHEST [...] of the chest. No acute radiographic abnormality. Hydrogenation Operator: KIM Transcribe Date/Time: Sep 18 2020 5:24P Dictated by : ASHIA PONCE MD This examination was interpreted and the report reviewed and electronically signed by: ASHIA PONCE MD on Sep 18 2020 5:26PM EST [id number] Normal [facility] Basic metabolic 2000 panelon 04-17-2020 Anion gap [Moles/Vol] 10 mmol/L Normal 9-18 [facility] Comment on above: Order Comment: Speci men Type: BLOOD SPECIMEN Performed By: #### 2 4323-8 #### [facility] CLIA [id number] [address] [facility] [place] [address] [place] Calcium [Mass/Vol] 9.0 mg/dL Normal 8.5-10.2 [facility] Comment on above: Order Comment: Speci men Type: BLOOD SPECIMEN Performed By: #### 2 4323-8 #### [facility] CLIA [id number] [address] [facility] [place] [address] [place] Chloride [Moles/Vol] 107 mmol/L High 97-105 [facility] Comment on above: Order Comment: Speci men Type: BLOOD SPECIMEN Performed By: #### 2 4323-8 #### [facility] CLIA [id number] [address] [facility] [place] [address] [place] CO2 [Moles/Vol] 23 mmol/L Normal 22-30 [facility] Comment on above: Order Comment: Speci men Type: BLOOD SPECIMEN Performed By: #### 2 4323-8 #### [facility] CLIA [id number] [address] [facility] [place] [address] [place] Creatinine [Mass/Vol] 0.78 mg/dL Normal 0.58-0.96 [facility] Comment on above: Order Comment: Speci men Type: BLOOD SPECIMEN Performed By: #### 2 4323-8 #### [facility] CLIA [id number] [address] [facility] [address] [place] GFR/1.73 sq M.predicted among blacks MDRD (S/P/Bld) [Vol rate/Area] mL/min/{1.73_m2} Normal [facility] Comment on above: Order Comment: Speci men Type: BLOOD SPECIMEN Performed By: #### 2 4323-8 #### [facility] CLIA [id number] [address] [place] [address] [place] GFR/1.73 sq M.predicted among non-blacks MDRD (S/P/Bld) [Vol rate/Area] mL/min/{1.73_m2} Normal [facility] Comment on above: Order Comment: Speci [...] GFR. Performed By: #### 2 4323-8 #### [facility] CLIA [id number] [address] [place] [address] [place] Glucose [Mass/Vol] 91 mg/dL Normal 74-99 [facility] Comment on above: Order Comment: Speci men Type: BLOOD SPECIMEN Result Comment: The [place] Diabetes [employer] (ADA) provides guidance for cutoff [...] Standards of Medical Care in Diabetes 2016, [place] [employer]. Diabetes Care. 2016.39(Suppl 1). Performed By: #### 2 4323-8 #### [facility] CLIA [id number] [address] [facility] [place] [address] [place] Potassium [Moles/Vol] 3.4 mmol/L Low 3.7-5.1 [facility] Comment on above: Order Comment: Speci men Type: BLOOD SPECIMEN Performed By: #### 2 4323-8 #### [facility] CLIA [id number] [address] [facility] [place] [address] [place] Sodium [Moles/Vol] 140 mmol/L Normal 136-144 [facility] Comment on above: Order Comment: Speci men Type: BLOOD SPECIMEN Performed By: #### 2 4323-8 #### [facility] CLIA [id number] [address] [facility] [place] [address] [place] Urea nitrogen [Mass/Vol] 6 mg/dL Low 7-21 [facility] Comment on above: Order Comment: Speci men Type: BLOOD SPECIMEN Performed By: #### 2 4323-8 #### [facility] CLIA [id number] [address] [facility] [place] [address] [place] CBC panel Auto (Bld)on 04-17 Erythrocyte distribution width (RBC) [Ratio] 12.6 % Normal 11.5-15.0 [facility] Comment on above: Order Comment: Speci men Type: BLOOD SPECIMEN Performed By: #### 5 8410-2 #### [facility] CLIA [id number] [address] [facility] [place] [address] [place] Hematocrit (Bld) [Volume fraction] 40.4 % Normal 36.0-46.0 [facility] Comment on above: Order Comment: Speci men Type: BLOOD SPECIMEN Performed By: #### 5 8410-2 #### [facility] CLIA [id number] [address] [facility] [place] [address] [place] Hemoglobin (Bld) [Mass/Vol] 13.1 g/dL Normal 11.5-15.5 [facility] Comment on above: Order Comment: Speci men Type: BLOOD SPECIMEN Performed By: #### 5 8410-2 #### [facility] CLIA [id number] [address] [place] [address] [facility] MCH (RBC) [Entitic mass] 30.4 pg Normal 26.0-34.0 [facility] Comment on above: Order Comment: Speci men Type: BLOOD SPECIMEN Performed By: #### 5 8410-2 #### [facility] CLIA [id number] [address] [place] [address] [place] [facility] MCHC (RBC) [Mass/Vol] 32.4 g/dL Normal 30.5-36.0 [facility] Comment on above: Order Comment: Speci men Type: BLOOD SPECIMEN Performed By: #### 5 8410-2 #### [facility] CLIA [id number] [address] [place] [address] [place] MCV (RBC) [Entitic vol] 93.7 fL Normal 80.0-100.0 [facility] Comment on above: Order Comment: Speci men Type: BLOOD SPECIMEN Performed By: #### 5 8410-2 #### [facility] CLIA [id number] [address] [place] [address] [place] Platelet mean volume (Bld) [Entitic vol] 10.8 fL Normal 9.0-12.7 [facility] Comment on above: Order Comment: Speci men Type: BLOOD SPECIMEN Performed By: #### 5 8410-2 #### [facility] CLIA [id number] [address] [place] [address] [place] Platelets (Bld) [#/Vol] 241 10*3/uL Normal 150-400 [facility] Comment on above: Order Comment: Speci men Type: BLOOD SPECIMEN Performed By: #### 5 8410-2 #### [facility] CLIA [id number] [address] [place] [address] [place] RBC (Bld) [#/Vol] 4.31 10*6/uL Normal 3.90-5.20 [facility] Comment on above: Order Comment: Speci men Type: BLOOD SPECIMEN Performed By: #### 5 8410-2 #### [facility] CLIA [id number] [address] [place] [address] [facility] WBC (Bld) [#/Vol] 11.29 10*3/uL High 3.70-11.00 [facility] Comment on above: Order Comment: Speci men Type: BLOOD SPECIMEN Performed By: #### 5 8410-2 #### [facility] CLIA [id number] [address] [place] [address] D dimer FEU PPP-mCncon 04-17 Fibrin D-dimer FEU (PPP) [Mass/Vol] 310 ng/mL FEU Normal <500 [facility] Comment on above: Order Comment: Speci men Type: BLOOD SPECIMEN Performed By: #### 2 4323-8 #### [facility] CLIA [id number] [address] [place] [address] HCG Preg Ur Qlon 04-17-2020 HCG ( test) Ql (U) Negative Normal Negative [facility] Comment on above: Order Comment: Speci men Type: URINE SPECIMEN Result Comment: This test is intended to aid in the early detection of . Very dilute urine samples, as indicated by a low specific gravity, may not contain business office representative levels of hCG. This test detects [...] . Performed By: #### 2 106-3 #### [facility] CLIA [id number] [address] [place] [address] [facility] HIGH SENSITIVITY TROPONIN To n 04-17-2020 HIGH SENSITIVITY SAULO 14 ng/L High <12 [facility] Comment on above: Order Comment: Speci [...] MACE. Performed By: #### H STNT #### [facility] CLIA [id number] [address] [id number] [facility] HIGH SENSITIVITY SAULO 14 ng/L High <12 [facility] Comment on above: Order Comment: Speci [...] MACE. Performed By: #### 2 4323-8 #### [facility] CLIA [id number] [address] [id number] [facility] XR CHEST 1V FRONTALon 2020 [...] Other: - IMPRESSION: No acute radiographic abnormality. Hydrogenation Operator: KIM Transcribe Date/Time: Apr 16 2020 11:07P Dictated by : VICTOR M STALEY MD This examination was interpreted and the report reviewed and electronically signed by: VICTOR M STALEY MD on Apr 16 2020 11:10PM EST Normal [facility] CORONAVIRUS 2019 BY PCRon CORONAVIRUS 2019,PCR NOT DETECTED Normal Not Detected [facility] Comment on above: Result Comment: . This [...] patient management decisions. Fact sheet for providers: https://www.fda.gov/media/326153/download Fact sheet for patients: https://www.fda.gov/media/751062/download This test has received FDA Emergency Use Authorization (EUA) and has been verified by [facility] ([facility]). This test is only authorized for the duration of time that circumstances exist to justify the authorization of the emergency use of in vitro diagnostic tests for the detection of SARS-CoV-2 virus and/or diagnosis of COVID-19 infection under section 564(b)(1) of the Act, 21 U.S.C. 360bbb-3(b)(1), unless the authorization is terminated or revoked sooner. [facility] is certified under CLIA-88 as qualified to perform high complexity testing. Testing is performed in the [facility] laboratories located at [address] [place] [address]. Performed By: #### C OV19 #### [facility] [address] [address] [place] [address] DATE OF SYMPTOM ONSET [YYYYMMDD]? 20200319 Normal [facility] Comment on above: Performed By: #### C OV19 #### [facility] [address] [place] [address] Covid 19 Resultson 1 Covid 19 Results [...] You may also be contacted by the [facility] to see if any of your close [...] or Naproxen (Aleve) can also be used. Mtbd-dqf-pntplpz cough and cold medicines can be used according to the instructions on the package. Some zrle-gdd-pkpeqhx medicines also contain acetaminophen. Make sure you [...] water are not available, use alcohol-based hand naturalist. Avoid touching your eyes, nose, and mouth [...] a total of 10 days. Additional resources: [facility] COVID Hotline at 9-371-6EKXTNW ( ). COVID-19 Careline at (available 24 hours per day, seven days a week if you or a loved one is experiencing anxiety related to the coronavirus pandemic). Clinical research opportunities: is conducting research studies to develop better testing and treatments for COVID. Do you want any information on how to participate Call [phone]. Websites: [facility]org or www.CDC.gov Follow My Health / My [facility] (for other test results): Revised 01/29/2020 Electronic Signatures: Rah Monreal (ADMIN) (Signature pending) Authored Last Updated: 23-Mar-2020 06:43 by [employer], [employer] (ADMIN) Normal [facility] CORONAVIRUS 2019 BY PCRon Lab Specimen Source Nasal, Nasopharyngeal Normal [facility] Comment on above: Performed By: #### C OV19 #### [facility] [address] [place] [address] CT CERVICAL SPINE WO IVCONon 12-10-2019 CT [...] No cervical spine fracture or traumatic malalignment. Hydrogenation Operator: KIM Transcribe Date/Time: Dec 10 2019 8:59P Dictated by : DEX TOLENTINO MD This examination was interpreted and the report reviewed and electronically signed by: DEX TOLENTINO MD on Dec 10 2019 9:08PM EST Normal [facility] XR CHEST 1V FRONTALon 2019 XR [...] No acute bony abnormality. IMPRESSION:No acute process. Hydrogenation Operator: KIM Transcribe Date/Time: Dec 10 2019 9:18P Dictated by : JOEY OVALLES MD This examination was interpreted and the report reviewed and electronically signed by: JOEY OVALLES MD on Dec 10 2019 9:19PM EST Normal [facility] XR SHLDR >/=3V AP/ELENA AP/OTH [...] normal. Joint spaces are preserved. IMPRESSION:Normal shoulder. Hydrogenation Operator: PSYCHIATRIC Transcribe Date/Time: Dec 10 2019 9:14P Dictated by : JOEY OVALLES MD This examination was interpreted and the report reviewed and electronically signed by: JOEY OVALLES MD on Dec 10 2019 9:17PM EST Normal [facility] XR THORACIC 3V AP/LAT/SWIMME RSon [...] No significant degenerative spondylosis. IMPRESSION:Normal thoracic spine. Hydrogenation Operator: KIM Transcribe Date/Time: Dec 10 2019 9:19P Dictated by : JOEY OVALLES MD This examination was interpreted and the report reviewed and electronically signed by: JOEY OVALLES MD on Dec 10 2019 9:21PM EST Normal [facility] HISTORY PHYSICALon 8 HISTORY PHYSICAL HNO ID: [id number]: Nallely Min (Pac) Vini De La Garza: [...] PAST SURGICAL HISTORY OF 05/24/2014 Laparoscopy, - [place] ANESTH,PACEMAKER INSERTION 2006 ICD implant, [facility]- REMOVAL OF OVARY(S) Left 2010 [...] and Percocet- Ativan [Lorazepam] Vomiting- Azithromycin Intolerance- [place] Anaphylaxis- Fish Anaphylaxis- Levofloxacin In D5w Swelling, [...] August 25, 2017 : 12:58 PM PAGER: [phone] [facility] PT EDon 06-14-2018 PT ED HNO ID: [id number]: Roxane (Rn) DEUCE Laraervice: (none)Author Type: Registered [...] By Roxane Lara RN In Department: PROCEDURES [facility] PT ED HNO ID: [id number]: Arvind (Rn) DEUCE Bahenaervice: NursingAuthor Type: Registered NurseType: Patient EducationFiled: 08/25/2017 12:47 PMNote Text:PRE OP LEARNING ASSESSMENTPROCEDURE/SURG QUINN: GI PROCEDURES: EGDREADINESS TO LEARNCOGNITIVE ABILITY: Alert and orientedMOTIVATION TO LEARN: EagerFAMILY SUPPORT: High - Very involved in pt carePATIENT LEARNS BEST BY: Verbal InstructionFACTORS AFFECTING LEARNING: NonePHYSICAL LIMITATIONS AFFECTING LEARNING: NoneElectronically Signed By: Arvind Bahena RN [facility] SURGICAL PATHOLOGYon 08-25- 018 SURGICAL PATHOLOGY [facility]: [id number] Physician: BALDO KENNEDY FINAL DIAGNOSISAntrum, biopsy - [...] submitted in one cassette.Gross examination performed at [facility], [address] [place], [place] [id number] 08/25/17Patient ID #: [id number] of Report: 08/27/2017Date of Procedure: 08/25/2017Date of Receipt: 08/25/2017Submitted by: BALDO TABBAALocation: AVENDiagnostic interpretation performed at [facility], [facility] [place] [address]. Normal [facility] Comment on above: Performed By: #### S ####See report for performing lab information. HOSPon 08-22-2017 HOSP Patient:Dick Mitchell Rafaela RN: Height:5' 4"(1.626 m)Weight:116 lb (52.617 kg)Outpatient [...] and vomiting [R11.2]Allergies:Morphin eAtivan [Lorazepam]AzithromycinC ucumberFishLevofloxacin In W5sUojpdkpnh [Gabapentin]pickles [Other]ShellfishTigan [Trimethobenzamide-Benzo dick]Ultram [Tramadol]Vicodin [Hydrocodone-Acetaminoph en]Zofran [Ondansetron Hcl (Pf)]Date Verified: 08/25/17Lab ValuesLab Value Units Date High LowPOTA* 3.1 mEq/L 08/05/2017 5.1 3.5HEMA* 41.2 % 08/05/2017 47.0 37.0Progress Notes ([facility]IO [facility] CC):Kwasi Stephens Rt 08/22/2017 11:17 AM Signed Radiology Service Progress NotePATIENT NAME: Michelle MitchellMRN: [id number] OF SERVICE: August 22, 2017TIME: 11:16 AMPATIENT IDENTITY VERIFICATION COMPLETED USING TWO (2) METHODS: Patientconfirmed name verbally and Date of .PATIENT GENDER DATA: Female. status: : No Breastfeedingstatus: NO.PATIENT RELEVANT IMPLANT DATA REVIEWED: Not ApplicableRADIOLOGY DEPARTMENT: General X-ray: Exam(s) Completed: Abdomen X-Ray AbdomenPERIPHERAL IV DATA: Not applicableSIGNED BY: Praveena Traore RtJunivonne 2017 11:16 AMProgress Notes ([facility] REJ):Jacqueline Stevens MA, MA 08/22/2017 10:[address] Aguilera is in regards to our mutual patient Michelle Mitchell who is scheduled gwendolyn EGD on 08/25/2017. Dr. Kennedy is requesting that Ms. Mitchell stop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s prior to procedure.Please advise and route message to:Dominguez MASON CORS/SERGIO NURSE [id number] SUBHA Stevens MA 08/23/2017 8:07 AM SignedJoseph Manjinder Wilkinson ?You 20 hours ago (11:27 AM)Yes may stop for egd (Routing comment) Normal [facility] Vital Signs Date Time Vital Sign Value Performing Clinician Facility 09-11-2024 23:27-0400 Body temperature 98 [degF] Dr. Dex Wilkinson MD Work Phone: [facility] 09-11-2024 23:27-0400 Diastolic blood pressure 95 mm[Hg] Dr. Dex Wilkinson MD Work Phone: [facility] 09-11-2024 23:27-0400 Heart rate 78 /min Dr. Dex Wilkinson MD Work Phone: [facility] 09-11-2024 23:27-0400 Respiratory rate 16 /min Dr. Dex Wilkinson MD Work Phone: [facility] 09-11-2024 23:27-0400 SaO2% (BldA) [Mass fraction] 99 % Dr. Dex Wilkinson MD Work Phone: [facility] 09-11-2024 23:27-0400 Systolic blood pressure 131 mm[Hg] Dr. Dex Wilkinson MD Work Phone: [facility] 09-11-2024 17:19-0400 Body height 162.[address] Dex Wilkinson MD Work Phone: [facility] 09-11-2024 17:19-0400 Body mass index (BMI) [Ratio] 21.6 kg/m2 Dr. Dex Wilkinson MD Work Phone: [facility] 09-11-2024 17:19-0400 Body weight 57.[address] Dex Wilkinson MD Work Phone: [facility] 08-27-2024 12:03-0400 Diastolic blood pressure 75 mm[Hg] Dr. Dex Wilkinson MD Work Phone: [facility] 08-27-2024 12:03-0400 Heart rate 63 /min Dr. Dex Wilkinson MD Work Phone: [facility] 08-27-2024 12:03-0400 Respiratory rate 18 /min Dr. Dex Wilkinson MD Work Phone: [facility] 08-27-2024 12:03-0400 SaO2% (BldA) [Mass fraction] 96 % Dr. Dex Wilkinson MD Work Phone: [facility] 08-27-2024 12:03-0400 Systolic blood pressure 134 mm[Hg] Dr. Dex Wilkinson MD Work Phone: [facility] 08-24-2024 15:22-0400 Body temperature 97.9 [degF] Dr. Dex Wilkinson MD Work Phone: [facility] 08-24-2024 15:22-0400 Diastolic blood pressure 61 mm[Hg] Dr. Dex Wilkinson MD Work Phone: [facility] 08-24-2024 15:22-0400 Heart rate 54 /min Dr. Dex Wilkinson MD Work Phone: [facility] 08-24-2024 15:22-0400 Respiratory rate 16 /min Dr. Dex Wilkinson MD Work Phone: [facility] [facility] 15:22-0400 SaO2% (BldA) [Mass fraction] 99 % Dr. Dex Wilkinson MD Work Phone: [facility] 08-24-2024 15:22-0400 Systolic blood pressure 103 mm[Hg] Dr. Dex Wilkinson MD Work Phone: [facility] 08-22-2024 08:40-0400 Inhaled oxygen flow rate 97 L/min Dr. Dex Wilkinson MD Work Phone: [facility] 08-21-2024 16:39-0400 Body height 162.[address] Dex Wilkinson MD Work Phone: [facility] 08-21-2024 16:39-0400 Body mass index (BMI) [Ratio] 21.7 kg/m2 Dr. Dex Wilkinson MD Work Phone: [facility] 08-21-2024 16:39-0400 Body weight 57.[address] Dex Wilkinson MD Work Phone: [facility] 08-20-2024 18:00-0400 Body temperature 97.8 [degF] Dr. Dex Wilkinson MD Work Phone: [facility] 08-20-2024 18:00-0400 Diastolic blood pressure 88 mm[Hg] Dr. Dex Wilkinson MD Work Phone: [facility] 08-20-2024 18:00-0400 Heart rate 63 /min Dr. Dex Wilkinson MD Work Phone: [facility] 08-20-2024 18:00-0400 Respiratory rate 18 /min Dr. Dex Wilkinson MD Work Phone: [facility] 08-20-2024 18:00-0400 SaO2% (BldA) [Mass fraction] 100 % Dr. Dex Wilkinson MD Work Phone: [facility] 08-20-2024 18:00-0400 Systolic blood pressure 136 mm[Hg] Dr. Dex Wilkinson MD Work Phone: [facility] 08-20-2024 14:16-0400 Body height 162.[address] Dex Wilkinson MD Work Phone: [facility] 08-20-2024 14:16-0400 Body mass index (BMI) [Ratio] 22.2 kg/m2 Dr. Dex Wilkinson MD Work Phone: [facility] 08-20-2024 14:16-0400 Body weight 58.[address] Dex Wilkinson MD Work Phone: [facility] 08-15-2024 10:57-0400 Body height 162.6 cm Radu Kay MD Work Phone: [facility] 08-15-2024 10:57-0400 Body mass index (BMI) [Ratio] 21.7 kg/m2 Radu Kay MD Work Phone: [facility] 08-15-2024 10:57-0400 Body weight 57.34 kg Radu Kay MD Work Phone: [facility] 08-15-2024 10:57-0400 Diastolic blood pressure 59 mm[Hg] Radu Kay MD Work Phone: [facility] 08-15-2024 10:57-0400 Heart rate 65 /min Radu Kay MD Work Phone: [facility] 08-15-2024 10:57-0400 Respiratory rate 16 /min Radu Kay MD Work Phone: [facility] 08-15-2024 10:57-0400 SaO2% (BldA) [Mass fraction] 96 % Raud Kay MD Work Phone: [facility] 08-15-2024 10:57-0400 Systolic blood pressure 120 mm[Hg] Radu Kay MD Work Phone: [facility] 08-11-2024 13:41-0400 Body temperature 97.8 [degF] Dr. Dex Wilkinson MD Work Phone: [facility] 08-11-2024 13:41-0400 Diastolic blood pressure 76 mm[Hg] Dr. Dex Wilkinson MD Work Phone: [facility] 08-11-2024 13:41-0400 Heart rate 64 /min Dr. Dex Wilkinson MD Work Phone: [facility] 08-11-2024 13:41-0400 Respiratory rate 16 /min Dr. Dex Wilkinson MD Work Phone: [facility] 08-11-2024 13:41-0400 SaO2% (BldA) [Mass fraction] 97 % Dr. Dex Wilkinson MD Work Phone: [facility] 08-11-2024 13:41-0400 Systolic blood pressure 105 mm[Hg] Dr. Dex Wilkinson MD Work Phone: [facility] 08-11-2024 10:27-0400 Body height 162.[address] Dex Wilkinson MD Work Phone: [facility] 08-11-2024 10:27-0400 Body mass index (BMI) [Ratio] 20.7 kg/m2 Dr. Dex Wilkinson MD Work Phone: [facility] 08-11-2024 10:27-0400 Body weight 54.[address] Dex Wilkinson MD Work Phone: [facility] 07-25-2024 16:43-0400 Diastolic blood pressure 57 mm[Hg] Ip Echo [facility] 07-25-2024 16:43-0400 Heart rate 61 /min Ip Echo [facility] 07-25-2024 16:43-0400 Respiratory rate 18 /min Ip Echo [facility] 07-25-2024 16:43-0400 SaO2% (BldA) [Mass fraction] 95 % Ip [facility] 07-25-2024 16:43-0400 Systolic blood pressure 110 mm[Hg] Ip [facility] 07-25-2024 15:04-0400 Body temperature 98.2 [degF] [facility] 07-24-2024 08:20-0400 Inhaled oxygen flow rate 2 L/min Dr. Dex Wilkinson MD Work Phone: [facility] 07-24-2024 08:20-0400 SaO2% (BldA) [Mass fraction] 96 % Dr. Dex Wilkinson MD Work Phone: [facility] 07-24-2024 07:41-0400 Body temperature 97.6 [degF] Dr. Dex Wilkinson MD Work Phone: [facility] 07-24-2024 07:41-0400 Diastolic blood pressure 79 mm[Hg] Dr. Dex Wilkinson MD Work Phone: [facility] 07-24-2024 07:41-0400 Heart rate 62 /min Dr. Dex Wilkinson MD Work Phone: [facility] 07-24-2024 07:41-0400 Respiratory rate 17 /min Dr. Dex Wilkinson MD Work Phone: [facility] 07-24-2024 07:41-0400 Systolic blood pressure 126 mm[Hg] Dr. Dex Wilkinson MD Work Phone: [facility] 07-24-2024 06:00-0400 Body mass index (BMI) [Ratio] 22.8 kg/m2 Dr. Dex Wilkinson MD Work Phone: [facility] 07-24-2024 06:00-0400 Body weight 60.[address] Dex Wilkinson MD Work Phone: [facility] 07-21-2024 09:02-0400 Body height 162.[address] Dex Wilkinson MD Work Phone: [facility] 07-20-2024 23:38-0400 Body temperature 98.2 [degF] Dr. Dex Wilkinson MD Work Phone: [facility] 07-20-2024 23:38-0400 Diastolic blood pressure 100 mm[Hg] Dr. Dex Wilkinson MD Work Phone: [facility] 07-20-2024 23:38-0400 Heart rate 70 /min Dr. Dex Wilkinson MD Work Phone: [facility] 07-20-2024 23:38-0400 Respiratory rate 15 /min Dr. Dex Wilkinson MD Work Phone: [facility] 07-20-2024 23:38-0400 SaO2% (BldA) [Mass fraction] 99 % Dr. Dex Wilkinson MD Work Phone: [facility] 07-20-2024 23:38-0400 Systolic blood pressure 133 mm[Hg] Dr. Dex Wilkinson MD Work Phone: [facility] 07-20-2024 18:57-0400 Body height 162.[address] Dex Wilkinson MD Work Phone: [facility] 07-20-2024 18:57-0400 Body mass index (BMI) [Ratio] 23.6 kg/m2 Dr. Dex Wilkinson MD Work Phone: [facility] 07-20-2024 18:57-0400 Body weight 62.[address] Dex Wilkinson MD Work Phone: [facility] 07-12-2024 12:25-0400 Body temperature 97.4 [degF] Dr. Dex Wilkinson MD Work Phone: [facility] 07-12-2024 12:25-0400 Diastolic blood pressure 69 mm[Hg] Dr. Dex Wilkinson MD Work Phone: [facility] 07-12-2024 12:25-0400 Heart rate 60 /min Dr. Dex Wilkinson MD Work Phone: [facility] 07-12-2024 12:25-0400 Respiratory rate 16 /min Dr. Dex Wilkinson MD Work Phone: [facility] 07-12-2024 12:25-0400 SaO2% (BldA) [Mass fraction] 98 % Dr. Dex Wilkinson MD Work Phone: [facility] 07-12-2024 12:25-0400 Systolic blood pressure 103 mm[Hg] Dr. Dex Wilkinson MD Work Phone: [facility] 07-12-2024 10:17-0400 Body mass index (BMI) [Ratio] 21.5 kg/m2 Dr. Dex Wilkinson MD Work Phone: [facility] 07-12-2024 10:17-0400 Body weight [address] Dex Wilkinson MD Work Phone: [facility] 07-10-2024 07:16-0400 Body mass index (BMI) [Ratio] 21.6 kg/m2 Dr. Dex Wilkinson MD Work Phone: [facility] 07-10-2024 07:16-0400 Body weight 57.[address] Dex Wilkinson MD Work Phone: [facility] 07-10-2024 07:16-0400 Diastolic blood pressure 83 mm[Hg] Dr. Dex Wilkinson MD Work Phone: [facility] 07-10-2024 07:16-0400 Heart rate 70 /min Dr. Dex Wilkinson MD Work Phone: [facility] 07-10-2024 07:16-0400 Respiratory rate 16 /min Dr. Dex Wilkinson MD Work Phone: [facility] 07-10-2024 07:16-0400 SaO2% (BldA) [Mass fraction] 98 % Dr. Dex Wilkinson MD Work Phone: [facility] 07-10-2024 07:16-0400 Systolic blood pressure 134 mm[Hg] Dr. Dex Wilkinson MD Work Phone: [facility] 07-03-2024 17:55-0400 Body temperature 98.2 [degF] Dr. Dex Wilkinson MD Work Phone: [facility] 07-03-2024 17:55-0400 Diastolic blood pressure 93 mm[Hg] Dr. Dex Wilkinson MD Work Phone: [facility] 07-03-2024 17:55-0400 Heart rate 68 /min Dr. Dex Wilkinson MD Work Phone: [facility] 07-03-2024 17:55-0400 Respiratory rate 19 /min Dr. Dex Wilkinson MD Work Phone: [facility] 07-03-2024 17:55-0400 SaO2% (BldA) [Mass fraction] 99 % Dr. Dex Wilkinson MD Work Phone: [facility] 07-03-2024 17:55-0400 Systolic blood pressure 142 mm[Hg] Dr. Dex Wilkinson MD Work Phone: [facility] 07-03-2024 13:30-0400 Body mass index (BMI) [Ratio] 22.9 kg/m2 Dr. Dex Wilkinson MD Work Phone: [facility] 07-03-2024 13:30-0400 Body weight 60.[address] Dex Wilkinson MD Work Phone: [facility] 07-01-2024 23:24-0400 Body temperature 97.9 [degF] Dr. Dex Wilkinson MD Work Phone: [facility] 07-01-2024 23:24-0400 Diastolic blood pressure 100 mm[Hg] Dr. Dex Wilkinson MD Work Phone: [facility] 07-01-2024 23:24-0400 Heart rate 70 /min Dr. Dex Wilkinson MD Work Phone: [facility] 07-01-2024 23:24-0400 Respiratory rate 17 /min Dr. Dex Wilkinson MD Work Phone: [facility] 07-01-2024 23:24-0400 SaO2% (BldA) [Mass fraction] 99 % Dr. Dex Wilkinson MD Work Phone: [facility] 07-01-2024 23:24-0400 Systolic blood pressure 136 mm[Hg] Dr. Dex Wilkinson MD Work Phone: [facility] 07-01-2024 19:52-0400 Body height 162.[address] Dex Wilkinson MD Work Phone: [facility] 07-01-2024 19:52-0400 Body mass index (BMI) [Ratio] 22 kg/m2 Dr. Dex Wilkinson MD Work Phone: [facility] 07-01-2024 19:52-0400 Body weight 58.[address] Dex Wilkinson MD Work Phone: [facility] 05-11-2024 23:42-0500 Body mass index (BMI) [Ratio] 21.5 kg/m2 Dr. Dex Wilkinson MD Work Phone: [facility] 05-11-2024 23:42-0500 Body temperature 98.2 [degF] Dr. Dex Wilkinson MD Work Phone: [facility] 05-11-2024 23:42-0500 Body weight 56.[address] Dex Wilkinson MD Work Phone: [facility] 05-11-2024 23:42-0500 Diastolic blood pressure 105 mm[Hg] Dr. Dex Wilkinson MD Work Phone: [facility] 05-11-2024 23:42-0500 Heart rate 105 /min Dr. Dex Wilkinson MD Work Phone: [facility] 05-11-2024 23:42-0500 Respiratory rate 20 /min Dr. Dex Wilkinson MD Work Phone: [facility] 05-11-2024 23:42-0500 SaO2% (BldA) [Mass fraction] 100 % Dr. Dex Wilkinson MD Work Phone: [facility] 05-11-2024 23:42-0500 Systolic blood pressure 169 mm[Hg] Dr. Dex Wilkinson MD Work Phone: [facility] 10-31-2023 10:45-0400 Diastolic Blood Pressure Non-Invasive 60 mm[Hg] DR VICTOR M ORTIZ MD [facility] 10-31-2023 10:45-0400 Heart rate 65 /min DR VICTOR M ORTIZ MD [facility] 10-31-2023 10:45-0400 Respiratory rate 20 /min DR VICTOR M ORTIZ MD [facility] 10-31-2023 10:45-0400 Systolic Blood Pressure Non-Invasive 95 mm[Hg] DR VICTOR M ORTIZ MD [facility] 10-31-2023 10:41-0400 Diastolic Blood Pressure Non-Invasive 54 mm[Hg] DR VICTOR M ORTIZ MD [facility] 10-31-2023 10:41-0400 Heart rate 65 /min DR VICTOR M ORTIZ MD [facility] 10-31-2023 10:41-0400 Respiratory rate 24 /min DR VICTOR M ORTIZ MD [facility] 10-31-2023 10:41-0400 Systolic Blood Pressure Non-Invasive 93 mm[Hg] DR VICTOR M ORTIZ MD [facility] 10-31-2023 10:35-0400 Diastolic Blood Pressure Non-Invasive 52 mm[Hg] DR VICTOR M ORTIZ MD [facility] 10-31-2023 10:35-0400 Heart rate 67 /min DR VICTOR M ORTIZ MD [facility] 10-31-2023 10:35-0400 Respiratory rate 24 /min DR VICTOR M ORTIZ MD [facility] 10-31-2023 10:35-0400 Systolic Blood Pressure Non-Invasive 89 mm[Hg] DR VICTOR M ORTIZ MD [facility] 10-31-2023 10:30-0400 Body height [address] VICTOR M ORTIZ MD [facility] 10-31-2023 10:30-0400 Body weight [address] VICTOR M ORTIZ MD [facility] 10-31-2023 10:30-0400 Body weight 20.44 kg/m2 DR VICTOR M ORTIZ MD [facility] 10-31-2023 10:25-0400 Respiratory Rate - Anes 28 br/min DR VICTOR M ORTIZ MD [facility] 10-31-2023 10:20-0400 Respiratory Rate - Anes 40 br/min DR VICTOR M ORTIZ MD [facility] 10-31-2023 10:15-0400 Respiratory Rate - Anes 30 br/min DR VICTOR M ORTIZ MD [facility] 10-31-2023 10:04-0400 Body height [address] VICTOR M ORTIZ MD [facility] 10-31-2023 10:04-0400 Body temperature 97.88 [degF] DR VICTOR M ORTIZ MD [facility] 10-31-2023 10:04-0400 Body weight [address] VICTOR M ORTIZ MD [facility] 10-31-2023 10:04-0400 Heart rate 68 /min DR VICTOR M ORTIZ MD [facility] 07-04-2023 23:00-0400 Body temperature 97.8 [degF] [facility] 07-04-2023 23:00-0400 Diastolic blood pressure 89 mm[Hg] [facility] 07-04-2023 23:00-0400 Heart rate 78 /min [facility] 07-04-2023 23:00-0400 Respiratory rate 16 /min [facility] 07-04-2023 23:00-0400 SaO2% (BldA) [Mass fraction] 99 % [facility] 07-04-2023 23:00-0400 Systolic blood pressure 122 mm[Hg] [facility] 07-04-2023 19:59-0400 Body height 162.56 cm [facility] 07-04-2023 19:59-0400 Body mass index (BMI) [Ratio] 21.9 kg/m2 [facility] 07-04-2023 19:59-0400 Body weight 57.92 kg [facility] 12-26-2022 01:43-0400 Heart rate 75 /min [facility] 12-26-2022 01:43-0400 Respiratory rate 15 /min [facility] 12-26-2022 01:43-0400 SaO2% (BldA) [Mass fraction] 98 % [facility] 12-26-2022 00:00-0400 Diastolic blood pressure 77 mm[Hg] [facility] 12-26-2022 00:00-0400 Systolic blood pressure 129 mm[Hg] [facility] 12-25-2022 21:20-0400 Body height 162.56 cm [facility] 12-25-2022 21:20-0400 Body mass index (BMI) [Ratio] 21.1 kg/m2 [facility] 12-25-2022 21:20-0400 Body temperature 97.9 [degF] [facility] 12-25-2022 21:20-0400 Body weight 55.8 kg [facility] 03-09-2022 10:45-0500 Respiratory rate 16 /min [facility] Work Phone: 03-09-2022 09:19-0500 Body height 162.56 cm [facility] Work Phone: 03-09-2022 09:19-0500 Body mass index (BMI) [Ratio] 21.2 kg/m2 [facility] Work Phone: 03-09-2022 09:19-0500 Body temperature 97.8 [degF] [facility] Work Phone: 03-09-2022 09:19-0500 Body weight 56.24 kg [facility] Work Phone: 03-09-2022 09:19-0500 Diastolic blood pressure 68 mm[Hg] [facility] Work Phone: 03-09-2022 09:19-0500 Heart rate 86 /min [facility] Work Phone: 03-09-2022 09:19-0500 SaO2% (BldA) [Mass fraction] 100 % [facility] Work Phone: 03-09-2022 09:19-0500 Systolic blood pressure 119 mm[Hg] [facility] Work Phone: 12-17-2021 03:42-0400 Diastolic blood pressure 67 mm[Hg] [facility] Work Phone: 12-17-2021 03:42-0400 Heart rate 70 /min [facility] Work Phone: 12-17-2021 03:42-0400 Respiratory rate 18 /min [facility] Work Phone: 12-17-2021 03:42-0400 SaO2% (BldA) [Mass fraction] 97 % [facility] Work Phone: 12-17-2021 03:42-0400 Systolic blood pressure 98 mm[Hg] [facility] Work Phone: 12-16-2021 22:32-0400 Body height 162.56 cm [facility] Work Phone: 12-16-2021 22:32-0400 Body mass index (BMI) [Ratio] 21.4 kg/m2 [facility] Work Phone: 12-16-2021 22:32-0400 Body temperature 98.5 [degF] [facility] Work Phone: 12-16-2021 22:32-0400 Body weight 56.69 kg [facility] Work Phone: 11-13-2021 17:52-0400 Respiratory rate 16 /min [facility] Work Phone: 11-13-2021 15:41-0400 Body height 162.56 cm [facility] Work Phone: 11-13-2021 15:41-0400 Body mass index (BMI) [Ratio] 21.2 kg/m2 [facility] Work Phone: 11-13-2021 15:41-0400 Body temperature 97.6 [degF] [facility] Work Phone: 11-13-2021 15:41-0400 Body weight 56.24 kg [facility] Work Phone: 11-13-2021 15:41-0400 Diastolic blood pressure 70 mm[Hg] [facility] Work Phone: 11-13-2021 15:41-0400 Heart rate 88 /min [facility] Work Phone: 11-13-2021 15:41-0400 SaO2% (BldA) [Mass fraction] 98 % [facility] Work Phone: 11-13-2021 15:41-0400 Systolic blood pressure 128 mm[Hg] [facility] Work Phone: 11-02-2021 22:04-0400 Diastolic blood pressure 78 mm[Hg] [facility] Work Phone: 11-02-2021 22:04-0400 Heart rate 98 /min [facility] Work Phone: 11-02-2021 22:04-0400 Respiratory rate 17 /min [facility] Work Phone: 11-02-2021 22:04-0400 SaO2% (BldA) [Mass fraction] 98 % [facility] Work Phone: 11-02-2021 22:04-0400 Systolic blood pressure 130 mm[Hg] [facility] Work Phone: 11-02-2021 20:56-0400 Body height 162.56 cm [facility] Work Phone: 11-02-2021 20:56-0400 Body mass index (BMI) [Ratio] 20.5 kg/m2 [facility] Work Phone: 11-02-2021 20:56-0400 Body temperature 98 [degF] [facility] Work Phone: 11-02-2021 20:56-0400 Body weight 54.43 kg [facility] Work Phone: Encounters Encounter Date Encounter Type Care Provider Facility Start: 09-13-2024 ambulatory Dex Cohn ty:[facility] Start: 09-11-2024 Evaluation and management of inpatient Dr. Dex Wilkinson MD Work Phone: -[facility] Start: 09-11-2024 Dr. Sergio Nielsen DO -[facility] 3 Work Phone: Start: 08-28-2024 End: 08-28-[address] Dex Wilkinson MD Work Phone: [facility] Work Phone: Start: 08-28-2024 End: 08-28-2024 Quang Myles DO -Nuclear Medicine [facility] Work Phone: Start: 08-27-2024 End: 08-28-[address] Dex Wilkinson MD Work Phone: [facility] Work Phone: Start: 08-27-2024 End: 08-27-2024 Quang Myles DO -[facility] Work Phone: Start: 08-27-2024 End: 08-27-2024 ambulatory Dex Wilkinson Facility:[facility] Start: 08-24-2024 Dr. Taylor Tejeda MD - [facility] Work Phone: Start: 08-23-2024 Quanglawrence Myles DO -[facility] Start: 08-23-2024 Dr. Taylor Tejeda MD - [facility] Work Phone: Start: 08-22-2024 Dr. Taylor Tejeda MD - [facility] Work Phone: Start: 08-21-2024 Quang Fifield DO -[facility] Start: 08-20-2024 Quang Fifield DO -[facility] Start: 08-20-2024 ambulatory Lopez Amaro ility:[facility] Start: 08-20-2024 End: 08-24-2024 Evaluation and management of inpatient Dr. Dex Wilkinson MD Work Phone: [facility] Work Phone: Start: 08-20-2024 End: 08-24-2024 Dr. Lopez Larios DO -Progressive Care Unit Work Phone: Start: 08-15-2024 End: 08-23-2024 ambulatory RADU KAY [facility] Start: 08-15-2024 End: 08-15-2024 Office outpatient new 60 minutes Radu Kay MD Work Phone: [facility] Comment on above: Hypertrophic cardiom egaly (Primary Dx); Chronic heart failure with preserved ejection fraction (HFpEF); Cardiomyopathy, hypertrophic nonobstructive (Multi); History of pulmonary embolism; Other ascites; Atypical chest pain Start: 08-15-2024 End: 08-15-2024 Subsequent hospital visit by physician Clayton Shine220 Cr Nonv1 Holter/Ecg Resource [facility] Comment on above: Heart failure, unspe cified Start: 08-15-2024 End: 08-15-2024 ambulatory [facility] Start: 08-11-2024 End: 08-11-2024 Dr. Dex Wilkinson MD Work Phone: -Emergency Department Work Phone: Start: 08-11-2024 End: 08-11-2024 Emergency department patient visit Dr. Dex Wilkinson MD Work Phone: [facility] Work Phone: Start: 08-10-2024 End: 08-10-2024 [facility] Start: 08-10-2024 End: 08-10-2024 Patient encounter [facility] Start: 08-09-2024 End: 08-09-[address] Dex Wilkinson MD Work Phone: [facility] Work Phone: Start: 08-09-2024 End: 08-09-2024 Quang Myles DO -Laboratory Specimen Work Phone: Start: 08-08-2024 End: 08-08-[address] Dex Wilkinson MD Work Phone: [facility] Work Phone: Start: 08-08-2024 End: 08-08-2024 Quangtreva Myles DO -Laboratory Work Phone: Start: 08-08-2024 End: 08-08-2024 Patient encounter procedure Quang Myles DO -[facility] Work Phone: Start: 08-08-2024 End: 08-08-2024 Quang Friend DO -[facility] Work Phone: Start: 08-08-2024 End: 08-09-[address] Dex Wilkinson MD Work Phone: [facility] Work Phone: Start: 08-08-2024 End: 08-08-2024 ambulatory Dex Wilkinson Facility:[facility] Start: 07-30-2024 End: 07-30-2024 Patient Outreach Quynh Chang [facility] Work Phone: Pharmacy Comment on above: Transition Of Care ( TCM Pharmacy-Hospital discharge 07/27/24) Start: 07-26-2024 End: 07-26-2024 Evaluation and management of inpatient Pulm Fct Lab J-2 [facility] Comment on above: Preoperative examina tion, unspecified (Primary Dx) Start: 07-26-2024 End: 07-26-2024 Preprocedural examination done Pulm J-2 [facility] Start: 07-25-2024 End: 07-25-2024 Evaluation and management of inpatient Ip Transesophageal Echo Cardiology Comment on above: History of transesop hageal echocardiography (MICKI) (Primary Dx) Start: 07-24-2024 End: 07-27-2024 Evaluation and management of inpatient [facility] Facility:[facility] Start: 07-24-2024 Non-patient / Non-visit Dr. Willian ritter [facility] Work Phone: Start: 07-24-2024 Dr. Willian Orozco [facility] Work Phone: Start: 07-23-2024 ambulatory Breannher Loera Facility: [facility] Start: 07-23-2024 ambulatory Sergio Santiago ty:[facility] Start: 07-23-2024 Non-patient / Non-visit Dr. Mercy Bishop MD -[facility] Start: 07-23-2024 Dr. Mercy Bishop MD - [facility] Start: 07-22-2024 Non-patient / Non-visit Dr. Saman ureña MD -[facility] Start: 07-22-2024 Dr. Saman Clay MD -[facility] Start: 07-22-2024 Non-patient / Non-visit Dr. Willian ritter [facility] Work Phone: Start: 07-22-2024 Dr. Willian Orozco [facility] Work Phone: Start: 07-21-2024 Non-patient / Non-visit Dr. Saman ureña MD -[facility] Start: 07-21-2024 Dr. Saman Clay MD -[facility] Start: 07-21-2024 Non-patient / Non-visit Dr. Willian ritter DO -[facility] Work Phone: Start: 07-21-2024 Dr. Willian vOalles DO [facility] Work Phone: Start: 07-21-2024 ambulatory Sergio Umaña Faciltian ty:[facility] Start: 07-21-2024 End: 07-24-2024 Dr. Willian LEOProgressive Jere Un it Work Phone: Start: 07-20-2024 End: 07-24-2024 Evaluation and management of inpatient Dr. Sergio Umaña DO Progressive Care Unit Work Phone: Start: 07-12-2024 ambulatory Quang Myles Facility :[facility] Start: 07-12-2024 Non-patient / Non-visit Quang Yung meaghan DO -[facility] Start: 07-12-2024 Quang Greg DO -[facility] Start: 07-12-2024 End: 07-12-2024 Admission to same day surgery center Quang Myles DO -Endoscopy Work Phone: Start: 07-12-2024 End: 07-12-2024 Quanglawrence Myles DO -Endoscopy Work Phone: Start: 07-12-2024 End: 07-12-2024 ambulatory Dex Wilkinson Facility:[facility] Start: 07-10-2024 End: 07-10-2024 Patient encounter procedure Xochitl BUCKLEY -[facility] Work Phone: Start: 07-10-2024 End: 07-10-2024 Xochitl BUCKLEY -[facility] Work Phone: Start: 07-10-2024 End: 07-10-2024 ambulatory Xochitl BUCKLEY Facility:[facility] Start: 07-06-2024 End: 07-06-2024 Evaluation and management of inpatient UNKNOWN PROVIDER Facility:[facility] Start: 07-04-2024 End: 07-08-2024 Evaluation and management of inpatient UNKNOWN PROVIDER Facility:[facility] Start: 07-04-2024 End: 07-04-2024 ambulatory Dex Tillar Facility:[facility] Start: 07-04-2024 End: 07-04-[address] Jose Francisco Santamaria MD -[facility] Work Phone: Start: 07-04-2024 End: 07-04-2024 Dr. Jose Francisco Santamaria MD -[facility] Work Phone: Start: 07-03-2024 End: 07-03-2024 Emergency department patient visit Dr. Nabor Frey DO -Emergency Department Work Phone: Start: 07-03-2024 End: 07-03-2024 Patient encounter procedure Bárbara Ureña [place] -[facility] Work Phone: Start: 07-03-2024 End: 07-03-2024 Dr. Nabor Frey DO -Emergency Departme nt Work Phone: Start: 07-03-2024 End: 07-03-2024 ambulatory Dex Wilkinson Facility:[facility] Start: 07-01-2024 End: 07-01-2024 Babar Mervinabdirashid DO -Emergency Departmen t Work Phone: Start: 07-01-2024 End: 07-01-2024 Emergency department patient visit Dr. Dex Wilkinson MD Work Phone: -Emergency Department Work Phone: Start: 07-01-2024 End: 07-01-2024 ambulatory Ella Cohen RN [facility] Start: 07-01-2024 End: 07-01-2024 Patient encounter procedure Ella Cohen RN [facility] Start: 05-15-2024 End: 05-21-2024 Evaluation and management of inpatient UNKNOWN PROVIDER Facility:[facility] Start: 05-11-2024 End: 05-12-2024 Dr. Bimal Cortez MD -Emergency Departm ent Work Phone: Start: 05-11-2024 End: 05-12-2024 Emergency department patient visit Dr. Bimal Cortez MD -Emergency Department Work Phone: Start: 03-28-2024 End: 03-28-2024 ambulatory Dex Wilkinson Facility:[facility] Start: 03-28-2024 End: 03-28-[address] Jose Francisco Santamaria MD -[facility] Work Phone: Start: 11-23-2023 End: 11-23-2023 ambulatory Dex Wilkinson Facility:[facility] Start: 11-01-2023 End: 11-02-2023 Emergency department patient visit Babar [place] Facility:[facility] Start: 10-31-2023 End: 10-31-[address] VICTOR M ORTIZ MD Facility:[facility] Start: 10-31-2023 End: 10-31-[address] VICTOR M ORTIZ MD [facility] Start: 09-13-2023 ambulatory Jose Francisco Santamaria Facility:[facility] Start: 09-13-2023 End: 09-13-2023 ambulatory [facility] Facility:[facility] Start: 07-04-2023 End: 07-04-2023 Emergency department patient visit [facility] Work Phone: Start: 07-04-2023 ambulatory Angela Krishna RN [facility] Start: 07-04-2023 Patient encounter procedure [facility] Start: 12-25-2022 End: 12-26-2022 Emergency department patient visit [facility] Work Phone: Start: 03-09-2022 End: 03-09-2022 Emergency department patient visit [facility] Start: 12-16-2021 End: 12-17-2021 Emergency department patient visit [facility] Start: 11-13-2021 End: 11-13-2021 Emergency department patient visit [facility] Start: 11-02-2021 End: 11-02-2021 Emergency department patient visit [facility] Start: 08-25-2017 End: 08-25-2017 Ambulatory [facility] Procedures Date Procedure Procedure Detail Performing Clinician Start: 09-11-2024 Computed tomography of abdomen and pelvis with intravenous contrast Dr. Dex Wilkinson MD Work Phone: Start: 09-11-2024 Blood count smear mcrscp w/mnl difrntl wbc count Dr. Dex Wilkinson MD Work Phone: Start: 09-11-[address] Kd Wilkinson MD Work Phone: Start: 09-11-2024 Mean corpuscular hemoglobin concentration determination Dr. Dex Wilkinson MD Work Phone: Start: 09-11-2024 Nucleated red blood cell count procedure Dr. Dex Wilkinson MD Work Phone: Start: 09-11-2024 Platelet mean volume determination Dr. Dex Wilkinson MD Work Phone: Start: 09-11-[address] Dex Wilkinson MD Work Phone: Start: 09-11-2024 Urine microscopy: red cells Dr. Dex Wilkinson MD Work Phone: Start: 09-11-2024 Urnls dip stick/tablet reagent auto microscopy Dr. Dex Wilkinson MD Work Phone: Start: 08-28-2024 Radionuclide gastric emptying study Dr. [...] Start: 08-24-2024 Platelet mean volume determination Dr. Dex Wilkinson MD Work Phone: Start: 08-23-2024 Computed [...] Start: 08-09-[address] Jaime Wilknison MD Work Phone: Start: 08-09-2024 Lactoferrin measurement [...] Dex Wilkinson MD Work Phone: Start: 08-08-2024 [employer] antibody measurement Dr. Dex Wilkinson MD Work Phone: Start: 08-08-[address] Dex Wilkinson MD Work Phone: Start: 08-08-[address] Dex Wilkinson MD Work Phone: Start: 08-08-[address] Dex Wilkinson MD Work Phone: Start: 07-24-2024 Antibody screen [facility] Comment on above: Order Comment: Specimen Type: BLOOD SPEC IMEN Ordering Facility: [facility] Address: [address] [place] [address] Performed By: #### 5 [id number] #### [facility] CLIA [id number] [address] [place] [address] [place] Start: 07-23-2024 Blood count [...] intravenous contrast Start: 12-26-2022 CT angiography of chest with contrast Start: [...] of 2) Zoster Vaccines (1 of 2) [facility] Start: 07-25-2025 Diabetes mellitus screening Diabetes Screening [facility] Start: 11-21-2024 End: 11-21-2024 Patient encounter procedure 11/21/2024 10:30 AM EDT Office Visit [facility] [address] [place] [id number] Radu Kay MD [address] [facility] [address] [place] [address] [facility] Start: 11-12-2024 Influenza vaccination Influenza Vaccine (Season Ended) [facility] Start: 09-11-2024 Verification routine [facility] Start: 09-11-2024 Admission procedure [facility] Start: 09-11-2024 Hospital admission, emergency, from emergency room, medical nature [facility] Start: 08-27-2024 Magnetic resonance cholangiopancreatography [facility] Start: 08-27-2024 MR Biliary ducts and Pancreatic duct contrast [facility] Start: 08-24-2024 Patient discharge [facility] Start: 08-22-2024 Provision of activity privileges [facility] Start: 08-20-2024 Following clinical pathway protocol [facility] Start: 08-20-2024 Ambulation without limitation [facility] Start: 08-20-2024 Assessment of risk of venous thromboembolism [facility] Start: 08-20-2024 Insertion of catheter into peripheral vein [facility] Start: 08-20-2024 Measuring intake and output [facility] Start: 08-20-2024 Providing care according to standard [facility] Start: 08-20-2024 Referral to gastroenterology service [facility] Start: 08-20-2024 [facility] Start: 08-20-2024 Hospital admission, emergency, from emergency room, medical nature [facility] Start: 08-20-2024 Verification routine [facility] Start: 08-20-2024 Admission procedure [facility] Start: 08-20-2024 Patient referral to dietitian [facility] Start: 08-11-2024 [facility] Start: 08-09-2024 [facility] Start: 08-09-2024 Ova OR parasites identification [facility] Start: 08-08-2024 [facility] Start: 07-26-2024 End: 07-26-2024 Patient encounter procedure Pulmonary Medicine Comment on above: NEEDS TRANSPORT IP AO, RA, NO DRIPS, REG WC, NO PRECAUTIONS/FEVERS //KP Start: 07-24-2024 Oxygen therapy [facility] Start: 07-24-2024 Patient discharge [facility] Start: 07-23-2024 Referral to gastroenterology service [facility] Start: 07-22-2024 Bacteria identified in Blood by Culture Blood Culture [facility] Start: 07-22-2024 End: 07-22-2024 [facility] Start: 07-22-2024 Inhalation therapy procedure [facility] Start: 07-21-2024 Provision of activity privileges [facility] Start: 07-21-2024 Following clinical pathway protocol [facility] Start: 07-21-2024 Assessment of risk of venous thromboembolism [facility] Start: 07-21-2024 Catheterization of vein [facility] Start: 07-21-2024 Insertion of catheter into peripheral vein [facility] Start: 07-21-2024 Measuring intake and output [facility] Start: 07-21-2024 Providing care according to standard [facility] Start: 07-21-2024 Provision of activity privileges [facility] Start: 07-21-2024 Referral to rn utilization management um [facility] Start: 07-21-2024 Referral to service [facility] Start: 07-21-2024 [facility] Start: 07-21-2024 Verification routine [facility] Start: 07-21-2024 Admission procedure [facility] Start: 07-20-2024 Hospital admission, emergency, from emergency room, medical nature [facility] Start: 07-20-2024 [facility] Start: 07-12-2024 Colonoscopy w/biopsy single/multiple [facility] Start: 07-12-2024 Endoscopy upper small intestine w/biopsy [facility] Start: 07-12-2024 Patient discharge [facility] Start: 07-03-2024 [facility] Start: 07-01-2024 [facility] Start: 05-12-2024 [facility] Start: 02-08-2024 Screening for malignant neoplasm of cervix Cervical Cancer Screening [facility] Start: 11-13-2023 Covid-19 Vaccine ( season) Covid-19 Vaccine () [facility] Start: 07-04-2023 [facility] Start: 12-26-2022 [facility] Start: 12-26-2022 [facility] Start: 12-25-2022 [facility] Start: 11-07-2022 Urine microalbumin profile DTaP,Tdap,Td Vaccine (2 - Td or Tdap) [facility] Start: 12-16-2021 [facility] Work Phone: Start: 2019 Screening for malignant neoplasm of breast [facility] Start: 04-05-2012 Pneumococcal vaccination Pneumococcal Vaccine (2 of 2 - PCV) [facility] Start: 04-05-2012 Pneumococcal Vaccine: Pediatrics and At-Risk Adult Patients (2 of 2 - PCV) Pneumococcal Vaccine: Pediatrics and At-Risk Adult Patients (2 of 2 - PCV) [facility] Start: 09-15-2001 DTaP/Tdap/Td Vaccines (1 - Tdap) DTaP/Tdap/Td Vaccines (1 - Tdap) [facility] Start: 09-15-2000 Screening for malignant neoplasm of cervix [facility] Start: 09-15-1998 Hepatitis A Vaccines (1 of 2 - Risk 2-dose series) Hepatitis A Vaccines (1 of 2 - Risk 2-dose series) [facility] Start: 09-15-1998 Hepatitis B Vaccine (1 of 3 - 19+ 3-dose series) Hepatitis B Vaccine (1 of 3 - 19+ 3-dose series) [facility] Start: 09-15-1998 Hepatitis B Vaccines (1 of 3 - 19+ 3-dose series) Hepatitis B Vaccines (1 of 3 - 19+ 3-dose series) [facility] Start: 09-15-1997 Annual PCP Team Chronic Disease Visit Annual PCP Team Chronic Disease Visit [facility] Start: 09-15-1997 Depression Screening Depression Screening [facility] Start: 09-15-1997 Hepatitis C screening Hepatitis C Screening [facility] Start: 09-15-1997 HIV screening HIV Screening [facility] Start: 09-15-1980 MMR Vaccines (1 of 1 - Standard series) MMR Vaccines (1 of 1 - Standard series) [facility] Start: 1979 Creatinine measurement Creatinine Level [facility] Start: 1979 Echocardiography Echocardiogram [facility] Start: 1979 HIV screening HIV Screening [facility] Start: 1979 Lipid panel Lipid Panel [facility] Start: 1979 Potassium measurement Potassium Level [facility] Start: 1979 Yearly Adult Physical Yearly Adult Physical [facility] Angiotensin converti ng enzyme [Enzymatic activity/volume] in Serum or Plasma [facility] Antibody to lupus La protein measurement [facility] Antibody to SS-A measurement [facility] Blood ammonia measurement [facility] C reactive protein [ Mass/volume] in Serum or Plasma [facility] CBC W Auto Different ial panel - Blood [facility] Celiac disease screen [facility] Ceruloplasmin [Mass/ volume] in Serum or Plasma [facility] Clam IgE Ab [Units/v olume] in Serum [facility] Clostridioides diffi cile DNA [Presence] in Unspecified specimen by BIMAL with probe detection [facility] Codfish IgE Ab [Unit s/volume] in Serum [facility] Colonoscopy [facility] Comprehensive metabo lic 1999 panel - Serum or Plasma [facility] Copper [Moles/volume ] in Serum or Plasma [facility] Toyah IgE Ab [Units/v olume] in Serum [facility] Cow milk IgE Ab [Uni ts/volume] in Serum [facility] DNA double strand Ab [Units/volume] in Serum [facility] ECG 12 lead ECG 12 lead ECG Routine Heart failure, unspecified 08/23/2024 12:53 PM EDT [facility] Service Area Work Phone: Egg white RAST [facility] Erythrocyte sedimentation rate [facility] Ferritin [Mass/volum e] in Serum or Plasma [facility] Gastrin [Mass/volume ] in Serum or Plasma [facility] Giardia lamblia Ag [ Presence] in Stool by Immunoassay [facility] Haptoglobin [Mass/vo lume] in Serum or Plasma [facility] Hemoglobin A1c/Hemog lobin.total in Blood [facility] IgG subclass panel [ Mass/volume] - Serum [facility] Immunoglobulin measurement [facility] Iron [Mass/mass] in Unspecified specimen [facility] Lactate dehydrogenas e measurement [facility] Lactoferrin [Presenc e] in Stool by Immunoassay [facility] Magnesium measurement [facility] Magnesium measurement [facility] MR Biliary ducts and Pancreatic duct WO contrast [facility] MRI of small intestine [facility] Nucleic acid assay [facility] Ova OR parasites identification [facility] Patient Education [facility] Work Phone: Patient referral [facility] Work Phone: Peanut IgE Ab [Units /volume] in Serum [facility] Protein measurement [facility] Prothrombin time [facility] Radionuclide gastric emptying study [facility] Reticulocyte count [facility] Scallop RAST [facility] Serum immunofixation [facility] Sesame seed RAST [facility] Shrimp IgE Ab [Units /volume] in Serum [facility] Soybean IgE Ab [Unit s/volume] in Serum [facility] Thyroid stimulating hormone measurement [facility] US Heart [facility] Wheat IgE Ab [Units/ volume] in Serum [facility] Immunizations Immunization Date Immunization Notes Care Provider Fa [facility] 08-01-2020 Covid (Moderna) Dr. Dex Wilkinson MD Work Phone: [facility] 07-01-2020 Covid (Moderna) Dr. Dex Wilkinson MD Work Phone: [facility] 01-28-2020 influenza virus vacc ine, unspecified formulation Ip [facility] 01-12-2014 influenza, seasonal, injectable, preservative free Ip [facility] Work Phone: 01-12-2014 influenza virus vacc ine, unspecified formulation Radu Kay MD Work Phone: [facility] Work Phone: 01-03-2013 influenza virus vacc ine, unspecified formulation [facility] 04-05-2011 pneumococcal polysaccharide vaccine, 23 valent [facility] 12-16-2008 influenza virus vacc ine, unspecified formulation [facility] Work Phone: Payers Date Payer Category Payer Managed Care (Private) [employer] [id number] 2024 Unknown [id number] 2023 Self-pay 2023 Blue [employer] Blue Shield BLUE ACCE PPO Member Subscriber Plan / Payer (Effective 2023-Present) Name: AlbadelmiMichelle Relation to Subscriber: Self Name: AlbaBroderick londonlarissa Stephens Payer ID: [id number] ([facility]) Type: PPO Address: [facility] [address] [place] [id number] 2023 Unknown [id number] 1979 Unknown [id number] 2.16.840.1.317938.3.579.2. 627 1979 Unknown [id number] 04.29.840.1.300948.3.579.2. 1247 1979 Unknown [id number] ..840.1.623783.3.579.2. 1247 Unknown [facility] [id number] Unknown [id number] .840.1.618282.3.579.2. 462 Unknown [id number] .840.1.332249.3.579.2. 462 Unknown [id number] 2.840.1.256697.3.579.2. 462 Unknown [id number] 2.840.1.370684.3.579.2. 462 Unknown [id number] 2.840.1.584513.3.579.2. 462 Unknown [id number] .840.1.887346.3.579.2. 462 Unknown [id number] 2.840.1.165202.3.579.2. 462 Unknown [id number] .840.1.038075.3.579.2. 462 Unknown [id number] 2.840.1.969539.3.579.2. 462 Unknown [id number] .840.1.550436.3.579.2. 462 Unknown [id number] .840.1.244224.3.579.2. 462 Unknown [id number] .840.1.744092.3.579.2. 462 Unknown [id number] 2.840.1.063775.3.579.2. 462 Unknown [id number] 2.840.1.246353.3.579.2. 462 Unknown [id number] 2.16.840.1.631868.3.579.2. 462 Unknown [id number] 2.16.840.1.511262.3.579.2. 462 Unknown [id number] 2.16.840.1.849013.3.579.2. 462 Unknown [id number] 2.16.840.1.971552.3.579.2. 462 Unknown [id number] 2.16.840.1.024063.3.579.2. 462 Unknown [id number] 2.16.840.1.981376.3.579.2. 462 Unknown [id number] 2.16.840.1.553989.3.579.2. 462 Unknown [id number] 2.16840.1.024050.3.579.2. 462 Unknown [id number] 2.840.1.912103.3.579.2. 462 Unknown [id number] 2.16840.1.886708.3.579.2. 462 Unknown [id number] 2.16840.1.729244.3.579.2. 462 Unknown [id number] 2.16840.1.406287.3.579.2. 462 Unknown [id number] 2.16.840.1.800470.3.579.2. 462 Unknown [id number] 2.16840.1.928326.3.579.2. 462 Unknown [id number] 2.16840.1.608874.3.579.2. 462 Unknown [id number] 2.16.840.1.853405.3.579.2. 462 Unknown [id number] 2.16.840.1.560689.3.579.2. 462 Unknown [id number] 2.16.840.1.983639.3.579.2. 462 Unknown [id number] 2.16.840.1.611673.3.579.2. 462 Unknown [id number] 2.16840.1.257336.3.579.2. 462 Unknown [id number] 2.16.840.1.687493.3.579.2. 462 Unknown [id number] 2.16.840.1.645869.3.579.2. 462 Unknown [id number] 2.16.840.1.529711.3.579.2. 462 Unknown [id number] 2.16.840.1.018790.3.579.2. 462 Unknown [id number] 2.16.840.1.318077.3.579.2. 462 Unknown [id number] 2.16.840.1.340105.3.579.2. 462 Unknown [id number] 2.16.840.1.939286.3.579.2. 462 Unknown [id number] 2.16.840.1.950185.3.579.2. 462 Unknown [id number] 2.16.840.1.539733.3.579.2. 462 Unknown [id number] 2.16.840.1.992666.3.579.2. 462 Social History Date Type Detail Facility [facility] Work Phone: Start: 11-02-2021 End: 07-04-2023 Tobacco smoking status NHIS Unknown if ever smoked [facility] Start: 1980 Sex Assigned At Female [facility] Start: 1980 Sex Assigned At Not on file [facility] Start: 07-25-2024 End: 08-15-2024 Gender identity Not on file [facility] Start: 10-31-2023 Tobacco smoking status Light tobacco smoker (finding) [facility] Start: 10-12-2021 End: 07-01-2024 Sex Female (finding) [place] Start: 07-01-2024 End: 09-11-2024 Tobacco smoking status NHIS Smokes tobacco daily (finding) [facility] Start: 03-14-1982 History of tobacco use Cigarette Smoker [facility] Start: 04-16-2020 End: 08-15-2024 Cigarettes smoked current (pack per day) - Reported 0.3 [facility] Start: 04-16-2020 End: 08-15-2024 Tobacco use and exposure Smokeless tobacco non-user [facility] Start: 07-25-2024 Alcoholic beverage intake Current non-drinker of alcohol (finding) [facility] Has the electric, gas, oil, or water company threatened to shut off services in your home in past 12Mo No [facility] PHQ2 Score 0 Nyssa Anna Maire maier (I/We) worried whether (my/our) food would run out before (I/we) got money to buy more. Never true [facility] Start: 09-18-2018 Tobacco Comment since age 12 yrs [place] Start: 08-05-2024 End: 08-15-2024 Exposure to SARS-CoV-2 (event) Not sure [facility] NEGATED: Highlighted row Not [facility] Medical Equipment Procedure Code Equipment Code Equipment Origin al Text Equipment Identifier Dates ERCP (endoscopic retrograde cholangiopancreato graphy) [id number] FDA Start: 08-21-2024 ERCP (endoscopic retrograde cholangiopancreato graphy) ([id number]) [id number] FDA Start: 08-21-2024 [id number] Visi a Af Mri [id number] Start: 10-29-2016 Lead Sprint Quat tro Secure S 55cm Pacing Df-4 Tripolar Screw Defibrillator - [id number] Start: 10-29-2016 Comment on above: Description: Right v entrical lead Defib-Vr [id number] Visia Mri Af - [id number] Start: 10-29-2016 FDA Start: 10-29-2016 FDA Start: 10-29-2016 FDA Start: 10-29-2016 FDA Start: 10-29-2016 FDA Start: 10-29-2016 FDA Start: 10-29-2016 Goals Date Patient Goal Desired Activity /State Functional Status Date Assessment Result Facility 08-24-2024 Functional status Ambulates [facility] Work Phone: 07-27-2024 Are you deaf, or do you have serious difficulty hearing No 07/27/2024 9:19 AM Zaida Morales RN No [facility] 07-27-2024 Are you blind, or do you have serious difficulty seeing, even when wearing glasses No 07/27/2024 9:19 AM Zaida Morales RN No [facility] 07-27-2024 Do you have serious difficulty walking or climbing stairs No 07/27/2024 9:19 AM Zaida Morales, JAJA No [facility] 07-27-2024 Do you have difficul ty dressing or bathing No 07/27/2024 9:19 AM Zaida Morales, JAJA No [facility] 07-27-2024 Because of a physica l, mental, or emotional condition, do you have difficulty doing errands alone such as visiting a physician's office or shopping No 07/27/2024 9:19 AM Zaida Morales RN No [facility] 07-24-2024 Functional status Up ad petey [facility] [facility] Work Phone: 07-22-2024 Functional status Well [facility] Work Phone: 07-08-2024 Are you deaf, or do you have serious difficulty hearing No 07/08/2024 3:50 PM Lor Zamorano RN No [facility] 07-08-2024 Are you blind, or do you have serious difficulty seeing, even when wearing glasses No 07/08/2024 3:50 PM Lor Zamorano, JAJA No [facility] 07-08-2024 Do you have serious difficulty walking or climbing stairs No 07/08/2024 3:50 PM Lor Zamorano, JAJA No [facility] 07-08-2024 Do you have difficul ty dressing or bathing No 07/08/2024 3:50 PM Lor Zamorano, JAJA No [facility] 07-08-2024 Because of a physica l, mental, or emotional condition, do you have difficulty doing errands alone such as visiting a physician's office or shopping No 07/08/2024 3:50 PM EDLor Mckinley, JAJA No [facility] 10-31-2023 Functional Status Repositions self [facility] Mental Status Date Assessment Result Facility 08-24-2024 Cognitive function Voice/Name;Touch/Shaki ng [facility] Work Phone: 07-27-2024 Because of a physica l, mental, or emotional condition, do you have serious difficulty concentrating, remembering, or making decisions No 07/27/2024 9:19 AM EDT Zaida Drake, JAJA No [facility] 07-24-2024 Cognitive function Voice/Name [facility] Work Phone: 07-12-2024 Cognitive function Voice/Name [facility] Work Phone: 07-08-2024 Because of a physica l, mental, or emotional condition, do you have serious difficulty concentrating, remembering, or making decisions No 07/08/2024 3:50 PM EDT Lor Pham RN No [facility] 05-12-2024 Cognitive function Awake;Alert;A ppropriate;Fol lows Commands [facility] Work Phone: 12-25-2022 Cognitive function Voice/Name [facility] Work Phone: 12-16-2021 Cognitive function Level Of Cons ciousness Awake;Alert;Appropriate;Fol lows Commands [facility] Work Phone: Clinical Notes 09-18-2020 to 09-11-2024 Note Date & Type Note Facility 09-11-2024 Radiology Diagnostic study note [facility] 08-28-2024 Nuclear medicine Diagnostic study not e [facility] 08-24-2024 Discharge summary Note Date/Time August 24, 2024 3:36pm [facility] Medical Records Department [address] [place] [address] Instructions for Home/Discharge Instructions 08/24/24 1312 MR#: [id number] Acct: [id number] Name: MICHELLE MITCHELL Rep #:[id number] : 1980 43 From: Taylor Tejeda [...] [Primary Care Provider] - Within 1 Week Friend,DO Quang [Med Staff - Active Staff] - Within 2 Weeks Disposition Disposition (needs filled in before D/C Order can be placed): Home, Self Care 08/24/24 1312<Electronically signed by Taylor Tejeda MD>Taylor Tejeda MD CC: Dr. Lopez Larios DO; Dr. Dex Wilkinson MD ~ Signed [facility] Work Phone: 1([phone]) 346-791406-13-2025 [facility]06-12-2025 Progress note Author Quang Friend [facility] Note Date/Time August 23, 2024 8:09 pm [facility] Medical Records Department [address] [place] [address] Progress Note 08/23/242003 MR#: [id number] Acct: [id number] Name: MICHELLE MITCHELL Rep #:[id number] : 1980 43 From: Quang Myles DO PCP: Dr. Dex Wilkinson MD Status:A DM IN [facility] Progress Note Patient saying that she [...] is a 43-year-old female who presented to [facility] ED on 08/20/2024 with worsening RUQ abdominal pain. Worsening RUQ abdominal pain with elevated LFTs ? Admit under inpatient status to PCU. GI consulted. Presented with worsening abdominal pain and uptrending LFTs. Prior CT abdomen pelvis showed hepatomegalywith double duct sign. Liver ultrasound on this admission again showed hepatomegaly with pancreatic duct dilation. 08/23/2024-Findings: The pin or clip fastener film was normal. The esophagus was successfully [...] 08/23/24 at 2007 Visit Charges Inpatient E&M: 28721 Subs Hosp L3 08/23/242007 <Electronically signed by Quang arciniega DO> Date _ Quang Myles Signature (if applicable): Date cc: ~* Signed [facility] Work Phone: 1(365) 978-985006-12-2025 Radiology Diagnostic study [facility]06-12-2025 Progress note Author Taylor Tejeda [facility] Note Date/Time August 23, 2024 5:29 pm [facility] Medical Records Department [address] [place] [address] Progress Note 08/23/241724 MR#: [id number] Acct: [id number] Name: MICHELLE MITCHELL Rep #:[id number] : 1980 43 From: Taylor Tejeda MD PCP: Dr. Dex Wilkinson MD Status:A DM IN Location: [place] [address] Subjective Subjective Patient seen and examined. He [...] 08/23/24 14:21 08/23/24 14:21 08/23/24 14:21 08/23/24 14:08/22/24 08:40 Oxygen Flow Rate (L/min) 97 Oxygen Delivery Method Room Air Weight: 126 lb 8.725 oz Body Mass Index (BMI) 21.7 Intake & Output: Intake and Output for Last 24 Hours 08/21/24 08/22/24 08/23/24 23:59 23:59 23:59 Intake Total 550 / 950 20490 1222.75 / 1222.75 Balance 550 / 950 20490 1222.75 / 1222.75 Lab / Micro Data [...] (Auto) 80.5 H, Lymph % (Auto) 10.7 L,[place] % (Auto) 7.0, Eos % (Auto) 1.0, [...] * Has ICD in place. Follows with [facility] cardiology. * 2D echo showed EF of 35% with mild concentric left ventricular hypertrophy and global ventricular hypokinesis with stage II diastolic dysfunction. * Chest x-ray showed no evidence of volume overload. On spironolactone and metoprolol #Anxiety and insomnia: On alprazolam and zolpidem GERD: PPI DVT prophylaxis: Lovenox Charges/Coding Visit Charges Inpatient E&M: 08116 Subs Hosp L2 08/23/24 0075 <Electronically signed by Taylor Tejeda MD> Taylor Tejeda MD Cosigner Signature (if applicable): CC: ~ Signed [facility] Work Phone: 1(786) 490-582406-12-2025 Radiology Diagnostic study [facility]06-11-2025 Progress note [facility] Note Date/Time August 22, 2024 5:59 pm [facility] Medical Records Department [address] [place], [place] [address] [address] Progress Note 08/22/24 1211 MR#: [id number] Acct: [id number] Name: MICHELLE MITCHELL Rep #:[id number] : 1980 43 From: Taylor Tejeda MD PCP: Dr. Dex Wilkinson MD Status:A DM IN Location: [place] [address] Subjective Subjective Patient seen and examined. She [...] (Auto) 77.7 H, Lymph % (Auto) 12.5 L,[place] % (Auto) 8.0, Eos % (Auto) 0.8, [...] 08/21/24 18:30 IMPRESSION: As above. Reading Location: [place] [address] Physical Exam Const alert and oriented x3 [...] * Has ICD in place. Follows with [facility] cardiology. * 2D echo showed EF of 35% with mild concentric left ventricular hypertrophy and global ventricular hypokinesis with stage II diastolic dysfunction. * Chest x-ray showed no evidence of volume overload. On spironolactone and metoprolol #Anxiety and insomnia: On alprazolam and zolpidem GERD: PPI DVT prophylaxis: Lovenox Charges/Coding Visit Charges Inpatient E&M: 64966 Subs Hosp L2 08/22/24 4398 <Electronically signed by Taylor Tejeda MD> Taylor Tejeda MD Cosigner Signature (if applicable): CC: ~ Signed [facility] Work Phone: 1(207) 178-248606-11-2025 Consult note Author Tony lazara [facility] Note Date/Time August 22, 2024 6:53 am [facility] Medical Records Department [address] [place] [address] Anesthesia Postop Eval II 08/22/24 0653 MR#: [id number] Acct: [id number] Name: MICHELLE MITCHELL Rep #:[id number] : 1980 43 From: Tony Dumont MD PCP: Dr. Dex Wilkinson MD Status:A DM IN Y Race: C Location: [place] [address] 2-1 Anesthesia Postop Eval I Sum Postop [...] MD > Date _ Tony Dumont MD Cosigner Signature: Date CC: ~ Signed [facility] Work Phone: 1(432) 422-999506-10-[address] [facility] Note Date/Time August 21, 2024 7:28 pm [facility] Medical Records Department [address] [place] [address] Anesthesia Postop Eval I 08/21/241926 MR#: [id number] Acct: [id number] Name: ALBADELMIMICHELLE Rep #:[id number] : 1980 43 From: Tony Dumont MD PCP: Dr. Dex Wilkinson MD Status:A DM IN Y Race: C Location: [address] Anesthesia: Postop Eval I Current Vital Signs [...] MD > Date _ [facility]: Date CC: ~ Signed [facility] Work Phone: 1(592) 996-573506-10-2025 Radiology Diagnostic study [facility]06-10-2025 Progress note Author Taylor [facility] Note Date/Time August 21, 2024 5:30 pm [facility] Medical Records Department [address] [place] [address] Progress Note 08/21/24 1718 MR#: [id number] Acct: [id number] Name: KENDRAMICHELLE Rep #:[id number] : 1980 43 From: Taylor Tejeda MD PCP: Dr. Dex Wilkinson MD Status:A DM IN Location: [place] [address] Subjective Subjective Patient seen and examined. She [...] * Has ICD in place. Follows with [facility] cardiology. * 2D echo showed EF of 35% with mild concentric left ventricular hypertrophy and global ventricular hypokinesis with stage II diastolic dysfunction. * Chest x-ray showed no evidence of volume overload. On spironolactone and metoprolol #Anxiety and insomnia: On alprazolam and zolpidem GERD: PPI DVT prophylaxis: Lovenox Charges/Coding Visit Charges Inpatient E&M: 25921 Subs Hosp L3 08/21/24 1730 <Electronically signed by Taylor Tejeda MD> Taylor Tejeda MD Cosigner Signature (if applicable): CC: ~ Signed [facility] Work Phone: 1(349) 899-340706-10-2025 Progress note Author Quang Myles [facility] Note Date/Time August 21, 2024 5:27 pm [facility] Medical Records Department [address] [place] [address] Progress Note 08/21/24 1724 MR#: [id number] Acct: [id number] Name: MICHELLE MITCHELL Rep #:[id number] 2 : 1980 43 From: Quang Myles DO PCP: Dr. Dex Wilkinson MD Status:A DM IN Location: [place] [id number]- 1 Progress Note Patient still complains of the [...] ASA of 3. Visit Charges Inpatient E&M: 53831 [facility] Hosp L3 08/21/24 1727 <Electronically signed by Quang Myles DO> Quang Myles DO Cosigner Signature (if applicable): CC: ~ Signed [facility] Work Phone: 1(278) 921-552306-10-2025 Procedure [facility] 08-21-2024 Consult note Author Tony Dumont [facility] Note Date/Time August 21, 2024 4:55 pm [facility] Medical Records Department [address] [place] [address] Pre-Anesthesia Evaluation 08/21/24 1654 MR#: [id number] Acct: [id number] Name: MICHELLE MITCHELL Rep #:[id number] : 1980 43 From: Tony Dumont MD PCP: Dr. Dex Wilkinson MD Status:A DM IN Y Race: C Location: [place] [address] 21 ASA Classification* ASA Classification ASA Classification: 3 [...] 08/21/24 TSH 2.360 uIU/mL (0.300-4.200) 08/08/24 09:33 07/13 11/05 COAG PT 12.8 SECONDS (11.7-14.9) 08/08/24 09:33 Urine Test Negative Negative 08/11/24 10:40 08/11/24 Pre-Assessment Diagnosis/Proposed Procedure Planned Operative Procedure(s): ERCP Anesthesia History Anesthesia History - bird trapper: Anesthesia History - bird trapper Hx Hospitalization Yes: 05/2024 ABSCESS TURNED 07/10/24 [...] take am of surgery PONV PONV - bird trapper: PONV - bird trapper Female HX of Motion Sickness HX of N/V After Surgery Non-Smoker Duration of Surgery greater than 60 minutes Number of Risk Factors PONV Score Height & Weight Height & Weight: Anesthesia: Height & Weight Height 5 ft 4 in 08/21/24 16:39 Weight: 57.4 kg 08/21/24 16:39 Body Mass Index (BMI) 21.7 08/21/24 16:39 Respiratory Assessment Respiratory Assessment - bird trapper: Respiratory Tract Infection Hx - bird trapper Hx Respiratory Tract Infection No 08/20/24 21:50 STOP Sleep Apnea STOP Sleep Apnea - bird trapper: STOP Sleep Apnea - bird trapper Hx Hypertension No 08/20/24 18:53 Hx Sleep [...] Tobacco Use History Tobacco Use History - bird trapper: Tobacco Use History - bird trapper Tobacco Use Smoking Status Current every day smoker 08/20/24 18:53 Hx Tobacco Use Yes 08/20/24 18:53 Years Smoking Packs Smoked per Day Smoking Cessation Date was within the last 15 years Hx Smoking Cessation Date Hx Smoking Cessation No 08/20/24 18:53 Counseling Hematologic Medial History Hematologic Hx - bird trapper: 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 Hx of Blood Transfusion No 08/20/24 18:53 [...] confused, unrespo /Reproduction History /Reproductive History - bird trapper: /Reproductive Hx- bird trapper Hx Now No 08/21/24 08:33 Gestational Age [...] 0.5 Mg Tablet PO Not Given BID PIA Enoxaparin Sodium 40 mg 08/21/24 10:00 08/21/24 11:17 Enoxaparin 40 Mg/0.4 Ml Syringe SC Not Given DAILY PIA Hydromorphone HCl 0.5 mg 08/20/24 19:00 08/21/24 13:28 Hydromorphone 0.5 Mg/0.5 Ml Syringe IV 0.5 mg Q4H PRN PRN Administration Pain Score 6-10 Sodium Chloride 250 mls @ 15 mls/hr 08/20/24 19:01 IV .[id number] PRN Saline Flush Sodium Chloride 250 mls @ 15 mls/hr 08/20/24 19:01 IV .[id number] PRN Additional IVPB Infusion Lactated Ringer's 1,000 mls @ 15 mls/hr 08/21/24 16:45 08/21/24 16:47 IV 15 mls/hr .Q48H PIA Administration Iopamidol 0 ml 08/21/24 08:45 Contrast Allergy Safety Check IV X1 [facility] Meloxicam 15 mg 08/21/24 10:00 08/21/24 11:17 Meloxicam 15 Mg Tablet PO Not Given DAILY PIA Metoprolol Succinate 25 mg 08/21/24 10:00 08/21/24 11:18 Metoprolol(Xl)Succ 25 Mg Tablet PO Not Given DAILY [facility] Protocol Ondansetron HCl 4 mg 08/20/24 19:00 Ondansetron 4 Mg/2 Ml Vial IV Q8H PRN PRN NAUSEA/VOMITING Oxycodone HCl 5 mg 08/20/24 19:00 08/21/24 06:37 Oxycodone 5 Mg Tablet PO 5 mg Q4H PRN PRN Administration Pain Score 4-10 Pantoprazole Sodium 40 mg 08/20/24 22:00 08/21/24 11:18 Pantoprazole Sodium 40 Mg Tablet PO Not Given BID [facility] Scopolamine HBr 1 patch 08/21/24 10:00 08/21/24 13:23 Scopolamine 1mg/72hr Patch TD Not Given Q3D [facility] Sodium Chloride 10 - 40 ml 08/20/24 19:01 08/21/24 09:14 0.9% Saline Lock 10 Ml Syringe IV 10 ml UD PRN Administration SALINE FLUSH Spironolactone 25 mg 08/21/24 10:00 08/21/24 11:17 Spironolactone 25 Mg Tablet PO Not Given DAILY [facility] Protocol Sucralfate 1 gm 08/21/24 08:00 08/21/24 09:13 Sucralfate 1 Gm Tablet [facility] Zol[facility]em Tartrate 10 mg 08/20/24 22:00 08/20/24 21:53 Zolpidem Tartrate 5 Mg Tablet PO 10 mg QHS PIA Administration PFSH Medical History Hypertension Severe pulmonary [...] pain Pulmonary embolism Endometrial cancer Cervical cancer 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 08/21/241654 <Electronically signed by Tony Dumont MD > Date _ Tony Dumont MD [facility] Signature: Date CC: ~ Signed [facility] Work Phone: 1([phone]) 728-357906-10-2025 Discharge summary Author Simona Fernandez [facility] Note Date/Time August 21, 2024 12:2 9am [facility] Medical Records Department [address] [place] [address] Emergency Department Summary 08/20/24 MR#: [id number] Acct: [id number] Name: MICHELLE MITCHELL Rep #:[id number] : 1980 43 From: Simona Jama PCP: Dr. Dex Wilkinson MD Status:A DM IN Location: [address] History of Present Illness Chief Complaint: [...] sphincter of Oddi syndrome, choledocholithiasis or ampullarylesion. 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 Case discussed with Dr. Greg, GI on-call. He does agree that patient likely [...] 83.3 H Lymph % (Auto) 10.9 L [place] % (Auto) 4.6 Eos % (Auto) 0.2 [...] Clarity Clear Urine pH 6.5 Ur Specific [place] 1.010 Urine Protein 15 H Urine Glucose [...] duct dilation to 6.5 mm. Reading Location: [facility] Chest X-Ray 08/20/24 16:00 IMPRESSION: CARDIOMEGALY. NO ACUTE FINDINGS. Reading Location: [facility] Discharge Plan Dx/Rx/DC Orders Clinical Impression: Dilated pancreatic duct, Elevated liver enzymes, Abdominal pain, HFrEF (heart failure with reduced ejection fraction) Disposition Disposition: Acute Care Hospital [facility] Discharge Date/Time: 08/20/24 18:38 What to do if you have Problems For any increased pain, shortness of breath, bleeding, nausea or vomiting, chestpain, or any unexpected problems, contact your Primary Care Provider. Call [facility] ([phone]) or report to the closest Emergency Room. Call 911 if necessary. 08/21/24 0029 <Electronically signed by Simona Fernandez DO> Cosigner Signature (if applicable): CC: Dr. Dex Wilkinson MD ~ Signed [facility] Work Phone: 1([phone]) 189-592506-09-2025 History and physical note Author Lopez Larios [facility] Note Date/Time August 20, 2024 9:41p m [facility] Medical Records Department [address] [place] [address] H&P Exam - Hospitalist 08/20/24 1747 MR#: [id number] Acct: [id number] Name: MICHELLE MITCHELL Rep #:[id number] : 1980 43 From: Lopez adame DO PCP: Dr. Dex Wilkinson MD Status:A DM IN Location: [facility] [id number]- 1 HPI - General General Date of Admission: 08/20/24 Date of Service: 08/20/24 Chief Complaint: Worsening RUQ abdominal pain HPI Narrative MICHELLE MITCHELL, is a 43 F who presented to [facility] ED on 08/20/2024 with worsening RUQ abdominal [...] No other acute concerns at this time. 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 Reading Location: [facility] Chest X-Ray 08/20/24 16:00 IMPRESSION: CARDIOMEGALY. NO ACUTE FINDINGS. Reading Location: [id number] Assessment & Plan Assessment/Plan (1) Abdominal pain: QUALIFIERS: Abdominal location: unspecified location Qualified Code(s): R10.9 - Unspecified abdominal pain (2) Elevated liver enzymes: (3) Dilated pancreatic duct: PLAN: Plan Patient is a 43-year-old female who presented to [facility] ED on 08/20/2024 with worsening RUQ abdominal [...] familial hypertrophic cardiomyopathy, hypertension ? Follows with [place] [facility]ology. Most recent echo on 07/21 showed [...] 75 minutes. Charges/Coding Visit Charges Inpatient E&M: 80112 Init Hosp L3 08/20/242140 <Electronically signed by Lopez Larios DO> Cosigner Signature (if applicable): CC: Dr. Lopez aLrios DO; Dr. Dex Wilkinson MD~ Signed [facility] Work Phone: 1(661) 355-779906-09-2025 Radiology Diagnostic study [facility]06-09-2025 Radiology Diagnostic study [facility]06-04-2025 History of Present illness Narrative* Radu Kay MD - 08/15/2024 11:00 AM EDT [facility] Note CHIEF COMPLAINT: No chief complaint on file. Primary Care Physician: No primary care provider on file. Racking Technician- Dario ([facility]) GI- Friend HISTORY OF PRESENT ILLNESS: Michelle Mitchell is a 43 y.o. female with hypertrophic cardiomyopathy who presents as a new patient Briefly she was apparently diagnosed with hypertrophic cardiomyopathy after an episode of syncope underwent ICD placement in 2006 with lead revision in 2008, and then explant of the entire device with reimplantation in 2016, she was followed with a local rn utilization management um Dr Bishop (was following at [facility] she moved to [place] in 2021), notably she was admitted with chest pressure to [facility] in 2014 and 2016 felt to be [...] showing possible vegetation and was transferred to [facility], her blood cultures were negative and on [...] has. 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 No edema but does have cough and bloating She has 08-gapi-tecf smoking history no alcohol no illicits. She [...] "BUN", "CREATININE", "EGFR", "MG" in the last 57088 hours.No results for input(s): "ALBUMIN", "ALKPHOS", "ALT", "AST", "BILITOT", "LIPASE" in the last 55833 hours. No lab exists for component: "CA" CBC:No results for input(s): "WBC", "HGB", "HCT", "PLT", "MCV" in the last 42430 hours. HEME/ENDO:No results for input(s): "FERRITIN", "IRONSAT", "TSH", "HGBA1C" in the last 10291 hours. CARDIAC: No results for input(s): "LDH", "CKMB", "TROPHS", "BNP" in the last 13920 hours. No lab exists for component: "CK", "CKMBP"No results for input(s): "CHOL", "LDLF", "HDL", "TRIG" inthe last 48894 hours. No results found for: "BNP" DIAGNOSTIC [...] prior CC echocardiographic exam performed on 04/25/2021 ([facility]). Mobile echodensity reported today as above. [...] lead vegetation this was extensively evaluated at [facility] appears to be due to fibrin stranding [...] Center 08/15/2024 11:00 AM Radu Kay MD [id number] [place] Radu De Dios IV, MD Heart [...] complaints of headaches. Hospitalizations: July 2024 at [facility] for ADHF. documented in this [facility] Work Phone: 1(222) 529-162806-04-2025 Instructions* Patient Instructions* Radu Kay MD - 08/15/2024 11:00 AM EDT To reach Dr. Kay's office please call [phone] ([place]). . Call [phone] to schedule an appointment. You may also contact the HF RNs at Thank you for coming to your appointment today. If you have any questions or need cardiac medication refills, please call the Heart Failure Office at [phone] option 6. Start spironolactone 25mg and jardiance 10mg (if affordable) Get labwork in the next 2-6 weeks (we can order if not ordered by your other doctors) Talk to Dr Wilkinson about Chantix in the future Try to get genetic testing information from your family Return in 3 months 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 Denies recent injury, fever, dysuria, urinary retention, incontinence, weakness, numbness, or hematuria. R: Patient instructed to proceed to evaluation of severe, sudden onset pain. Patient verbalizes understanding, and states she will proceed to [facility], and that her SO will drive her. 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 Denies recent injury, fever, dysuria, urinary retention, incontinence, weakness, numbness, or hematuria. R: Patient instructed to proceed to evaluation of severe, sudden onset pain. Patient verbalizes understanding, and states she will proceed to [place] [facility], and that her SO will drive her. Reason for Disposition Patient sounds very sick or weak to the triager Protocols used: Back Egyn-ARZAD-PN documented in this [facility]05-19-2025 History of Present illness Narrative* Quynh Chang, [facility] - 07/30/2024 7:23 AM EDT TRANSITION CARE [...] oz) Patient was sent a message via ELVPHD including the link to the [facility] Heart Failure education video: No sent 07/27/24 Patient unable to be reached after unsuccessful outreach attempt(s). No further attempts to contactpatient will be made. SUMMARY: -Pt discharged from [facility] on 07/27/24. -Medication review not done History of Present Illness: The following content has been copied and pasted from patient's discharge summary. If discharge summary unavailable, After Visit Summary or last pertinent inpatient notes are copied and pasted. Reason for Hospitalization: Patient transferred to [facility] from [place] for concerns for ADHF and hx of [...] follow up with her local PCP and rn utilization management um in [place]. " Medication Reconciliation: Legend: Stopped, New, Changed, [...] tablet by mouth once daily. E-rx to [facility] Per discharge summary: Start toprol XL [address] Fonseca Per AVS: You are started on Toprol-XL 25 mg daily for your hypertrophic cardiomyopathy Lead Generator on new HF med- N/A pantoprazole DR [...] by mouth daily at bedtime. [facility] [place] [address] [address] [facility] [phone] [place] [address] [facility] [address] [facility] [address] Estimated Creatinine Clearance: 70.3 mL/min (based on [...] 30, 2024 7:24 AM documented in this [facility] NoteHNO ID: [id number] Author: QUYNH CHANG RPh Service: ? Author [...] oz) Patient was sent a message via ELVPHD including the link to the [facility] Heart Failure education video: No sent 07/27/24 Patient unable to be reached after unsuccessful outreach attempt(s). No further attempts to contact patient will be made. SUMMARY: -Pt discharged from [facility] on 07/27/24. -Medication review not done History of Present Illness: The following content has been copied and pasted from patient's discharge summary. If discharge summary unavailable, After Visit Summary or last pertinent inpatient notes are copied and pasted. Reason for Hospitalization: Patient transferred to [facility] from [place] for concerns for ADHF and hx of [...] follow up with her local PCP and rn utilization management um in [place]. " Medication Reconciliation: Legend: Stopped, New, Changed, [...] 25 mg daily for your hypertrophic cardiomyopathy Lead Generator on new HF med - N/A pantoprazole [...] at bedtime. [facility]erred pharmacy: [facility] [address] [place] [address] [address] [facility] - [phone] [address] [address] [facility] [address] [facility] [address] [facility] [address] Estimated Creatinine Clearance: 70.3 mL/min (based on [...] Quynh Chang RPh July 30, 2024 7:24 [facility]05-19-2025 NotePatient Outreach (PHRXRF) MICHELLE MITCHELL ([id number]) 1980 F Date Time Provider Department 07/30/24 QUYHN CHANG PHRXRF During your visit today, we [...] oz) Patient was sent a message via ELVPHD including the link to the [facility] Heart Failure education video: No sent 07/27/24 Patient unable to be reached after unsuccessful outreach attempt(s). No further attempts to contact patient will be made. SUMMARY: -Pt discharged from [facility] on 07/27/24. -Medication review not done History of Present Illness: The following content has been copied and pasted from patient's discharge summary. If discharge summary unavailable, After Visit Summary or last pertinent inpatient notes are copied and pasted. Reason for Hospitalization: Patient transferred to [facility] from [place] for concerns for ADHF and hx of [...] follow up with her local PCP and rn utilization management um in [place]. " Medication Reconciliation: Legend: Stopped, New, Changed, [...] 25 mg daily for your hypertrophic cardiomyopathy Lead Generator on new HF med - N/A pantoprazole [...] by mouth daily at bedtime. Preferred pharmacy: [facility] [address] [place], [place] [id number] - [address] [facility] - [phone] [place] [address] [facility] [address] [place], [place] [id number] Estimated Creatinine Clearance: 70.3 mL/min (based on [...] redness and itching a (more content not included)...[facility]05-16-2025 NoteHNO ID: [id number] Author: IRLANDA MOORE RPh Service: Pharmacy Author [...] RPh July 27, 2024 10:38 AM Pager: [phone] Medication List START taking these medications metoprolol [...] Your Medications These medications were sent to [facility] [address] [place] [address] [address] [facility] [phone] [address] [address] [address] metoprolol succinate ER 25 mg 24 hr tabletMccullough-Hyde Memorial Hospital05-15-2025 NoteHNO ID: [id number] Author: TEJAL RODRÍGUEZ PA-C Service: Cardiovascular Medicine Author Type: Physician Shipping Clerk Crating Type: Progress Notes Filed: 07/26/2024 15:35 Note Text: [facility] CARDI[facility]ULAR [facility]ICINE PROGRESS NOTE Michelle J Albadelmi [id number] PRIMARY SERVICE: Imaging, Hvi TIME OF SERVICE: [...] new from MICKI o (more content not included)...[facility]05-14-2025 NoteHNO ID: [id number] Author: SHEILA SPICER RN Service: Care Management Author Type: Registered Nurse Type: Care Mgt Initial Assessment Filed: 07/25/2024 14:56 Note Text: CARE MANAGEMENT: ASSESSMENT AND DISCHARGE PLAN SERVICE DATE: July 25, 2024 SERVICE TIME: 2:50 PM PCP: Dex Wilkinson MD Primary Contact: Extended Emergency Contact Information Primary Emergency Contact: Babar Mitchell Address: [address] [place] [address] [birth year][address] [facility] Mobile Relation: Spouse Admission Status: Inpatient Insurance Provider: [facility] Discharge Planning requested by: Per Department Practice Potential Transition Plans Home Advance Directives Current Advance Directive: None [employer] 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 Service: Pharmacy Author Type: Clinical Transformation Specialist Type: Plan of Care Filed: 07/25/2024 10:00 [...] please reach out to your medication access services assistant. Thank you (Prices may vary at different pharmacy locations, this is the cost at [facility]05-14-2025 NoteHNO ID: [id number] Author: MAHNAZ RUFF, ? Service: Pharmacy Author Type: Clinical Transformation Specialist Type: Plan of Care Filed: 07/25/2024 09:57 Note Text: Insurance investigation completed Patient has active prescription insurance: Yes - Patient's insurance is in-network with [facility] Insurance loaded into [place]: Yes Test claim was completed to verify insurance is active: Successful Any questions, please reach out to your medication access services assistant.[facility]05-13-2025 Discharge summary [facility] Medical Records Department [address] [place] [address] Discharge Summary 07/24/24 0839 MR#: [id number] Acct: [id number] Name: MICHELLE MITCHELL Rep #:[id number] 8 : 1980 43 From: Willian Ovalles DO PCP: Dr. Dex Wilkinson MD Status:A DM IN Location: [facility] [id number] Providers Date of Admission: 07/21/24 Primary Care Physician: Dr. Dex Wilkinson MD Consultations 07/21/24 00:48 Consult: Cardiology Routine Consulting Provider: [facility] Reason for Consult: AE CHF, Elevated Troponin and Near Syncope with Hypertrophic CM EMERGENT Consult: No MD Notified: Yes Date Notified: 07/21/24 Time Notified: 06:52 Method of Notification: Text Method of Consult:: In-Person 07/23/24 08:42 Consult: Gastroenterology Routine Consulting Provider: [facility] Reason for Consult: gastritis. clearance for [...] on following up with Dr. Aguilar at [facility], CTS at [facility] that specialized in cardiac transplantation. She may [...] accepted to [facility], awaiting on bed availablily. Medications at Discharge [...] heart transplant. So that is the reason [facility] was selected as a facility for transfer. [...] Care Hospital Charges/Coding Visit Charges Inpatient E&M: 92240 Disch Hosp >30min 07/24/24 0843 Cosigner Signature (if applicable): CC: Dr. Willian Ovalles DO; Dr. Dex Wilkinson MD~ Signed [facility]05-13-2025 [facility]25 Progress note Author Willian [facility] Note Date/Time July 23, 2024 12:31 pm [facility] Medical Records Department [address] [place] [address] Progress Note - Hospitalist 07/23/24 0749 MR#: [id number] Acct: [id number] Name: ALBADELMIMICHELLE Rep #:[id number] 2 : 1980 43 From: Willian Ovalles DO PCP: Dr. Dex Wilkinson MD Status:A DM IN Location: [place] [address] Reason for Visit Reason for Visit: Diagnoses [...] 93.3 H, Lymph % (Auto) 2.5 L, [place] % (Auto) 2.5, Eos % (Auto) 0.0, [...] on following up with Dr. Aguilar at [facility], CTS at [facility] that specialized in cardiac transplantation. She may [...] bed availablily. Charges/Coding Visit Charges Inpatient E&M: 26732 Subs Hosp L3 07/23/24 1231 <Electronically signed by Willian Ovalles DO> Cosigner Signature (if applicable): CC: ~ Signed [facility] Work Phone: 1(521) 696-707605-12-2025 Progress note Author Mercy Bishop [facility] Note Date/Time July 23, 2024 11:05 am [facility] Medical Records Department [address] [place] [address] Progress Note - Cardiology 07/23/24 0826 MR#: [id number] Acct: [id number] Name: MICHELLE MITCHELL Rep #:[id number] 2 : 1980 43 From: Mercy Bishop MD PCP: Dr. Dex Wilkinson MD Status:A DM IN Location: [place] [address] Subjective Subjective Patient continues to complain of [...] / 1999 Balance 900 / 900 1999 Lab [...] 93.3 H, Lymph % (Auto) 2.5 L, [place] % (Auto) 2.5, Eos % (Auto) 0.0, [...] 93.3 H, Lymph % (Auto) 2.5 L, [place] % (Auto) 2.5, Eos % (Auto) 0.0, [...] her situation with Dr. Zambrano at the [facility] and he has agreed to [...] infraclavicular area. This is monitored with the [place] device clinic. (3) Hemorrhagic gastritis: QUALIFIERS: Chronicity: [...] 5. Will arrange for transfer to the [facility] with her heart failure service. Charges/Coding Visit Charges Inpatient E&M: 08398 Subs Hosp L3 07/23/24 1105 <Electronically signed by Mercy Bishop MD> Cosigner Signature (if applicable): CC: ~ Signed [facility] Work Phone: 1(333) 677-414905-12-2025 Progress note [facility] Medical Records Department [address] [place] [address] Progress Note - Hospitalist 07/23/24 0749 MR#: [id number] Acct: [id number] Name: MICHELLE MITCHELL Rep #:[id number] 2 : 1980 43 From: Willian Ovalles DO PCP: Dr. Dex Wilkinson MD Status:A DM IN Location: [place] [address] Reason for Visit Reason for Visit: Diagnoses [...] 93.3 H, Lymph % (Auto) 2.5 L, [place] % (Auto) 2.5, Eos % (Auto) 0.0, [...] on following up with Dr. Aguilar at [facility], CTS at [facility] that specialized in cardiac transplantation. She may [...] her sister. Patient has been accepted to [facility], awaiting on bed availablily. Charges/Coding Visit Charges Inpatient E&M: 29794 [facility] Hosp L3 07/23/24 1231 Cosigner Signature (if applicable): CC: ~ Signed [facility]05-12-2025 Progress note [facility] Medical Records Department [address] [place] [address] Progress Note - Cardiology 07/23/24 0826 MR#: [id number] Acct: [id number] Name: MICHELLE MITCHELL Rep #:[id number] 2 : 1980 43 From: Mercy Bishop MD PCP: Dr. Dex Wilkinson MD Status:A DM IN Location: [facility] [id number] Subjective Subjective Patient continues to complain [...] 93.3 H, Lymph % (Auto) 2.5 L, [place] % (Auto) 2.5, Eos % (Auto) 0.0, [...] 93.3 H, Lymph % (Auto) 2.5 L, [place] % (Auto) 2.5, Eos % (Auto) 0.0, [...] her situation with Dr. Zambrano at the [facility] and he has agreed to [...] right infraclavicular area. [place]. (3) Hemorrhagic gastritis: QUALIFIERS: Chronicity: [...] 5. Will arrange for transfer to the [facility] with her heart failure service. Charges/Coding Visit Charges Inpatient E&M: 27533 Subs Hosp L3 07/23/24 1105 Cosigner Signature (if applicable): CC: ~ Signed [facility]05-11-2025 Progress note Author Willian Ovalles [facility] Note Date/Time July 22, 2024 1:45p m [facility] Medical Records Department [address] [place] [address] Progress Note - Hospitalist 07/22/24 0852 MR#: [id number] Acct: [id number] Name: ALBADELMIMICHELLE Rep #:[id number] 8 : 1980 43 From: Willian Ovalles DO PCP: Dr. Dex Wilkinson MD Status:A DM IN Location: [place] [address] Reason for Visit Reason for Visit: Diagnoses [...] 87.1 H, Lymph % (Auto) 6.4 L, [place] % (Auto) 4.8, Eos % (Auto) 0.2, [...] blood cultures. If positive, will need MICKI. DW Dr. Clay pt would require GI clearance prior to undergoing a MICKI. (4) Pulmonary hypertension: PLAN: suspect group 2. PE ruled on CTA unlikely group 1 component, may benefit from referral to pulmonary hypertension specialist. Pt states that she plans on following up with Dr. Aguilar at [facility], CTS at [facility] that specialized in cardiac transplantation. She may be refferred by Dr. Aguilar since she will be following up there. PLAN: Plan VTE prophylaxis: LMWH. Charges/Coding Visit Charges Inpatient E&M: 25175 Subs Hosp L2 07/22/24 1345 <Electronically signed by Willian Ovalles DO> Cosigner Signature (if applicable): CC: ~ Signed [facility] Work Phone: 1(133) 446-299005-11-2025 Progress note Author Saman Clay [facility] Note Date/Time July 22, 2024 12:00 pm [facility] Medical Records Department [address] [place] [address] Progress Note - Cardiology 07/22/24 1157 MR#: [id number] Acct: [id number] Name: MICHELLE MITCHELL Rep #:[id number] 6 : 1980 43 From: Saman Clay MD PCP: Dr. Dex Wilkinson MD Status:A DM IN Location: [place] [address] Subjective Subjective Continues to complain of abdominal [...] 87.1 H, Lymph % (Auto) 6.4 L, [place] % (Auto) 4.8, Eos % (Auto) 0.2, [...] 87.1 H, Lymph % (Auto) 6.4 L, [place] % (Auto) 4.8, Eos % (Auto) 0.2, [...] Cosigner Signature (if applicable): CC: ~ Signed [facility] Work Phone: 1(396) 922-679705-11-2025 Progress note [facility] Medical Records Department [address] [place] [address] Progress Note - Hospitalist 07/22/2452 MR#: [id number] Acct: [id number] Name: MICHELLE MITCHELL Rep #:[id number] 8 : 1980 43 From: Willian Ovalles DO PCP: Dr. Dex Wilkinson MD Status:A DM IN Location: [place] [address] Reason for Visit Reason for Visit: Diagnoses [...] 87.1 H, Lymph % (Auto) 6.4 L, [place] % (Auto) 4.8, Eos % (Auto) 0.2, [...] on following up with Dr. Aguilar at [facility], CTS at [facility] that specialized in cardiac transplantation. She may be refferred by Dr. Aguilar since she will be following up there. PLAN: Plan VTE prophylaxis: LMWH. Charges/Coding Visit Charges Inpatient E&M: 78339 Subs Hosp L2 07/22/24 1344 Cosigner Signature (if applicable): CC: ~ Signed [facility]05-11-2025 Progress note [facility] Medical Records Department [address] [place] [address] Progress Note - Cardiology 07/22/24 1157 MR#: [id number] Acct: [id number] Name: MICHELLE MITCHELL Rep #:[id number] : 1980 43 From: Saman Clay MD PCP: Dr. Dex Wilkinson MD Status:A DM IN Location: [place] [address] Subjective Subjective Continues to complain of abdominal [...] 87.1 H, Lymph % (Auto) 6.4 L, [place] % (Auto) 4.8, Eos % (Auto) 0.2, [...] 87.1 H, Lymph % (Auto) 6.4 L, [place] % (Auto) 4.8, Eos % (Auto) 0.2, [...] Referring Physician: Dex Wilkinson Performed By: Maru Kothari, LORI Physical Exam Narrative Comfortable. No apparent distress. [...] Cosigner Signature (if applicable): CC: ~ Signed [facility]05-10-2025 Consult note Author Saman Clay [facility] Note Date/Time July 21, 2024 1:26p m [facility] Medical Records Department [address] [place] [address] Consultation - Cardiology 07/21/24 1316 MR#: [id number] Acct: [id number] Name: MICHELLE MITCHELL Rep #:[id number] : 1980 43 From: Saman Clay MD PCP: Dr. Dex Wilkinson MD Status:A DM IN Location: [place] [address] Assessment & Plan Assessment/Plan (1) Acute systolic [...] with contrast reflux into the hepatic veins. [facility] Medical History (Updated 07/21/24 @ 13:[address] 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 Ovarian cancer GERD [...] albuterol sulfate 90 mcg/actuation 1 inh inhalation OH N 07/26/23 Unknown History aerosol inhaler dicyclomine [...] 94.7 H, Lymph % (Auto) 2.7 L, [place] % (Auto) 1.5, Eos % (Auto) 0.0, [...] Albumin 4.3, Globulin 2.5, Albumin/Globulin Ratio 1.7, [id number] 07/20/24 20:05: Urine Color Straw, Urine Clarity Clear, Urine pH 6.0, Ur Specific Casper 1.020, Urine Protein 100 H, Urine Glucose [...] 92.6 H, Lymph % (Auto) 3.5 L, [place] % (Auto) 2.6, Eos % (Auto) 0.1, [...] 94.7 H, Lymph % (Auto) 2.7 L, [place] % (Auto) 1.5, Eos % (Auto) 0.0, [...] Clarity Clear, Urine pH 6.0, Ur Specific Casper 1.020, Urine Protein 100 H, Urine Glucose [...] 92.6 H, Lymph % (Auto) 3.5 L, [place] % (Auto) 2.6, Eos % (Auto) 0.1, [...] No Acute Findings. Reading Location: [facility] Abdomen/Pelvis CT 07/20/24 21:15 IMPRESSION: 1. No acute findings in the abdomen and pelvis. 2. Mild hepatomegaly with heterogenous hepatic attenuation. 3. Small abdominopelvic ascites. Reading Location: [facility] Chest CTA 07/20/24 21:15 IMPRESSION: 1. No evidence of pulmonary embolism. 2. Diffuse interlobular septal thickening, scattered ground-glass opacities and bilateral pleural effusions, concerning for pulmonary edema. 3. Cardiomegaly, with trace pericardial effusion. 4. Contrast reflux into the hepatic veins suggestive of right heart dysfunction. Reading Location: [facility] 07/21/24 1326 <Electronically signed by Saman Clay MD> Cosigner Signature (if applicable): CC: Dr. Dex Wilkinson MD~ Signed [facility] Work Phone: 1(166) 345-169005-10-2025 Progress note Author Willian Ovalles [facility] Note Date/Time July 21, 2024 11:37 am [facility] Medical Records Department [address] [place] [address] Progress Note - Hospitalist 07/21/24 0753 MR#: [id number] Acct: [id number] Name: MICHELLE MITCHELL Rep #:[id number] : 1980 43 From: Willian Ovalles DO PCP: Dr. Dex Wilkinson MD Status:A DM IN Location: [place] [address] Reason for Visit Reason for Visit: Diagnoses [...] 94.7 H, Lymph % (Auto) 2.7 L, [place] % (Auto) 1.5, Eos % (Auto) 0.0, [...] Albumin 4.3, Globulin 2.5, Albumin/Globulin Ratio 1.7, [id number] 07/20/24 20:05: Urine Color Straw, Urine Clarity Clear, Urine pH 6.0, Ur Specific Casper 1.020, Urine Protein 100 H, Urine Glucose [...] 92.6 H, Lymph % (Auto) 3.5 L, [place] % (Auto) 2.6, Eos % (Auto) 0.1, [...] No Acute Findings. Reading Location: [facility] Abdomen/Pelvis CT 07/20/24 21:15 IMPRESSION: 1. No acute findings in the abdomen and pelvis. 2. Mild hepatomegaly with heterogenous hepatic attenuation. 3. Small abdominopelvic ascites. Reading Location: [facility] Chest CTA 07/20/24 21:15 IMPRESSION: 1. No evidence of pulmonary embolism. 2. Diffuse interlobular septal thickening, scattered ground-glass opacities and bilateral pleural effusions, concerning for pulmonary edema. 3. Cardiomegaly, with trace pericardial effusion. 4. Contrast reflux into the hepatic veins suggestive of right heart dysfunction. Reading Location: [facility] Physical Exam Const alert and no apparent [...] prophylaxis: LMWH. Charges/Coding Visit Charges Inpatient E&M: 20059 Subs Hosp L2 07/21/24 1137 <Electronically signed by Willian Ovalles DO> Cosigner Signature (if applicable): CC: ~ Signed [facility] Work Phone: 1(756) 167-560305-10-2025 Consult note [facility] Medical Records Department [address] [place] [address] Consultation - Cardiology 07/21/24 1316 MR#: [id number] Acct: [id number] Name: MICHELLE MITCHELL Rep #:[id number] 6 : 1980 43 From: Saman Clay MD PCP: Dr. Dex Wilkinson MD Status:A DM IN Location: [place] [address] Assessment & Plan Assessment/Plan (1) Acute systolic [...] with contrast reflux into the hepatic veins. [facility] Medical History (Updated 07/21/24 @ 13:[address] 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 cancer residential current use of 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 Ovarian cancer GERD [...] albuterol sulfate 90 mcg/actuation 1 inh inhalation [place] N 07/26/23 Unknown History aerosol inhaler dicyclomine [...] 94.7 H, Lymph % (Auto) 2.7 L, [place] % (Auto) 1.5, Eos % (Auto) 0.0, [...] Albumin 4.3, Globulin 2.5, Albumin/Globulin Ratio 1.7, [id number] 07/20/24 20:05: Urine Color Straw, Urine Clarity Clear, Urine pH 6.0, Ur Specific Casper 1.020, Urine Protein 100 H, Urine Glucose [...] 92.6 H, Lymph % (Auto) 3.5 L, [place] % (Auto) 2.6, Eos % (Auto) 0.1, [...] 94.7 H, Lymph % (Auto) 2.7 L, [place] % (Auto) 1.5, Eos % (Auto) 0.0, [...] Clarity Clear, Urine pH 6.0, Ur Specific Casper 1.020, Urine Protein 100 H, Urine Glucose [...] 92.6 H, Lymph % (Auto) 3.5 L, [place] % (Auto) 2.6, Eos % (Auto) 0.1, [...] No Acute Findings. Reading Location: [facility] Abdomen/Pelvis CT 07/20/24 21:15 IMPRESSION: 1. No acute findings in the abdomen and pelvis. 2. Mild hepatomegaly with heterogenous hepatic attenuation. 3. Small abdominopelvic ascites. Reading Location: [facility] Chest CTA 07/20/24 21:15 IMPRESSION: 1. No evidence of pulmonary embolism. 2. Diffuse interlobular septal thickening, scattered ground-glass opacities and bilateral pleural effusions, concerning for pulmonary edema. 3. Cardiomegaly, with trace pericardial effusion. 4. Contrast reflux into the hepatic veins suggestive of right heart dysfunction. Reading Location: [facility] 07/21/24 1326 Cosigner Signature (if applicable): CC: Dr. Dex Wilkinson MD~ Signed [facility]05-10-2025 Progress note [facility] Medical Records Department [address] [place] [id number] Progress Note - Hospitalist 07/21/24 0753 MR#: [id number] Acct: [id number] Name: MICHELLE MITCHELL Rep #:[id number] 5 : 1980 43 From: Willian Ovalles DO PCP: Dr. Dex Wilkinson MD Status:A DM IN Location: [facility] [id number] Reason for Visit Reason for Visit: [...] 94.7 H, Lymph % (Auto) 2.7 L, [place] % (Auto) 1.5, Eos % (Auto) 0.0, [...] Albumin 4.3, Globulin 2.5, Albumin/Globulin Ratio 1.7, Ryuton10 07/20/24 20:05: Urine Color Straw, Urine Clarity Clear, Urine pH 6.0, Ur Specific Cas[place] 1.020, Urine Protein 100 H, Urine Glucose [...] 92.6 H, Lymph % (Auto) 3.5 L, [place] % (Auto) 2.6, Eos % (Auto) 0.1, [...] No Acute Findings. Reading Location: [facility] Abdomen/Pelvis CT 07/20/24 21:15 IMPRESSION: 1. No acute findings in the abdomen and pelvis. 2. Mild hepatomegaly with heterogenous hepatic attenuation. 3. Small abdominopelvic ascites. Reading Location: [facility] Chest CTA 07/20/24 21:15 IMPRESSION: 1. No evidence of pulmonary embolism. 2. Diffuse interlobular septal thickening, scattered ground-glass opacities and bilateral pleural effusions, concerning for pulmonary edema. 3. Cardiomegaly, with trace pericardial effusion. 4. Contrast reflux into the hepatic veins suggestive of right heart dysfunction. Reading Location: [facility] Physical Exam Const alert and no apparent [...] prophylaxis: LMWH. Charges/Coding Visit Charges Inpatient E&M: 82264 Subs Hosp L2 07/21/24 1137 Cosigner Signature (if applicable): CC: ~ Signed [facility]05-10-2025 History and physical note Author Sergio Whalen [facility] Note Date/Time July 21, 2024 6:28a m [facility] Medical Records Department [address] [place] [address] H&P Exam - Hospitalist 07/20/24 2322 MR#: [id number] Acct: [id number] Name: MICHELLE MITCHELL Rep #:[id number] 7 : 1980 43 From: Sergio Giles DO PCP: Dr. Dex Wilkinson MD Status:A DM IN Location: [place] [id number] HPI - General General Date of [...] recent colonoscopy ~8 days ago who presentsto [facility] ER complaining of shortness of breath and [...] is expected to extend beyond 2 midnights. [facility] Medical History (Updated 07/21/24 @ 01:[address] 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 [facility] Abdomen/Pelvis CT 07/20/24 21:15 IMPRESSION: 1. No acute findings in the abdomen and pelvis. 2. Mild hepatomegaly with heterogenous hepatic attenuation. 3. Small abdominopelvic ascites. Reading [facility] Chest CTA 07/20/24 21:15 IMPRESSION: 1. No evidence of pulmonary embolism. 2. Diffuse interlobular septal thickening, scattered ground-glass opacities and bilateral pleural effusions, concerning for pulmonary edema. 3. Cardiomegaly, with trace pericardial effusion. 4. Contrast reflux into the hepatic veins suggestive of right heart dysfunction. Reading Location: [facility] Assessment & Plan Assessment/Plan (1) Heart failure [...] to evaluate LVEF. Finally, we will consult [facility] to see this patient on [...] culture and sensitivity data. Give acetaminophen prn [id number] (level 1-5/10) pain or fever. Give low-dose [...] 75 minutes. Charges/Coding Visit Charges Inpatient E&M: 03293 Init Hosp L3 07/21/24 0628 <Electronically signed by Sergio Umaña DO> Cosigner Signature (if applicable): CC: Dr. Sergio Umaña DO; Dr. Dex Wilkinson MD~ Signed [facility] Work Phone: 1(559) 562-133705-10-2025 History and physical note [facility] Medical Records Department [address] [place] [address] H&P Exam - Hospitalist 07/20/24 2322 MR#: [id number] Acct: [id number] Name: MICHELLE MITCHELL Rep #:[id number] 7 : 1980 43 From: Sergio Giles DO PCP: Dr. Dex Wilkinson MD Status:A DM IN Location: [facility] [id number]- 1 HPI - General General Date of [...] recent colonoscopy ~8 days ago who presentsto [facility] ER complaining of shortness of breath and [...] is expected to extend beyond 2 midnights. [facility] Medical History (Updated 07/21/24 @ 01:[address] Sergio Umaña, DO) Cancer History of steroid therapy Easy bruising Migraine headache History of hiatal hernia History of ulceration History of IBS Abdominal bloating Stomach pain Nausea & vomiting Shortness of breath on exertion Smoker History of echocardiogram Chest pain Pulmonary embolism Endometrial cancer Cervical cancer residential current use of 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 Ovarian cancer GERD [...] albuterol sulfate 90 mcg/actuation 1 inh inhalation [place] N 07/26/23 Unknown History aerosol inhaler dicyclomine [...] 94.7 H, Lymph % (Auto) 2.7 L, [place] % (Auto) 1.5, Eos % (Auto) 0.0, [...] Clarity Clear, Urine pH 6.0, Ur Specific Casper 1.020, Urine Protein 100 H, Urine Glucose [...] No Acute Findings. Reading Location: [facility] Abdomen/Pelvis CT 07/20/24 21:15 IMPRESSION: 1. No acute findings in the abdomen and pelvis. 2. Mild hepatomegaly with heterogenous hepatic attenuation. 3. Small abdominopelvic ascites. Reading Location: [facility] Chest CTA 07/20/24 21:15 IMPRESSION: 1. No evidence of pulmonary embolism. 2. Diffuse interlobular septal thickening, scattered ground-glass opacities and bilateral pleural effusions, concerning for pulmonary edema. 3. Cardiomegaly, with trace pericardial effusion. 4. Contrast reflux into the hepatic veins suggestive of right heart dysfunction. Reading Location: [facility] Assessment & Plan Assessment/Plan (1) Heart failure [...] to evaluate LVEF. Finally, we will consult [facility] to see this patient on [...] culture and sensitivity data. Give acetaminophen prn [id number]-bf-[id number] (level 1-5/10) pain or fever. Give low-dose [...] 75 minutes. Charges/Coding Visit Charges Inpatient E&M: 02063 Init Hosp L3 07/21/24 0628 Cosigner Signature (if applicable): CC: Dr. Sergio Umaña DO; Dr. Dex Wilkinson MD~ Signed [facility]05-10-2025 Discharge summary Author Carlos Nair [facility] Note Date/Time July 20, 2024 11:28p [facility] Medical Records Department [address] [place] [address] Emergency Department Summary 07/20/24 MR#: [id number] Acct: [id number] Name: MICHELLE MITCHELL Angelo Rep #:[id number] 2 : 1980 43 From: Carlos Jama PCP: Dr. Dex Wilkinson MD Status:R ER Location: ED HPI History of Present Illness Chief Complaint: Shortness of Breath PFSH [facility] Medical History Cancer History of steroid therapy Easy bruising Migraine headache History of hiatal hernia History of ulceration History of IBS Abdominal bloating Stomach pain Nausea & vomiting Shortness of breath on exertion Smoker History of echocardiogram Chest pain Pulmonary embolism Endometrial cancer Cervical cancer residential current use of 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 Ovarian cancer GERD [...] albuterol sulfate 90 mcg/actuation 1 inh inhalation [place] N 07/26/23 Unknown History aerosol inhaler oxycodone-acetaminophen [...] others: none Consults: Dr. Torrez (internal medicine) [facility] Narrative: Patient was initially tachypneic otherwise [...] anemia or thrombocytopenia noted BMP without significant [place] abnormalities, no sign of RADHA, LFTs within [...] to PCU This note was generated with Glanse dictation software. It may contain incorrectwords, spelling, [...] 94.7 H Lymph % (Auto) 2.7 L [place] % (Auto) 1.5 Eos % (Auto) 0.0 [...] Clarity Clear Urine pH 6.0 Ur Specific Casper 1.020 Urine Protein 100 H Urine Glucose [...] No Acute Findings. Reading Location: [facility] Chest CTA 07/20/24 21:15 IMPRESSION: 1. No evidence of pulmonary embolism. 2. Diffuse interlobular septal thickening, scattered ground-glass opacities and bilateral pleural effusions, concerning for pulmonary edema. 3. Cardiomegaly, with trace pericardial effusion. 4. Contrast reflux into the hepatic veins suggestive of right heart dysfunction. Reading Location: [facility] Discharge Plan Triage Chief Complaint: Shortness of [...] MD [Primary Care Provider] - Print Language: Grenadian What to do if you have Problems For any increased pain, shortness of breath, bleeding, nausea or vomiting, chestpain, or any unexpected problems, contact your Primary Care Provider. Call [facility] ([phone]) or report to the closest Emergency Room. Call 911 if necessary. 07/20/242327 <Electronically signed by Carlos Nair DO> Cosigner Signature (if applicable): CC: Dr. Dex Wilkinson MD ~ Signed [facility] Work Phone: 1(467) 480-798305-09-2025 Discharge summary [facility] Medical Records Department [address] [place] [address] Emergency Department Summary 07/20/24 MR#: [id number] Acct: [id number] Name: MICHELLE MTICHELL Rep #:[id number] 2 : 1980 43 From: Carlos Jama PCP: Dr. Dex Wilkinson MD Status:R EG ER Location: ED HPI History of Present Illness Chief Complaint: Shortness of Breath [facility] Medical History Cancer History of steroid therapy Easy bruising Migraine headache History of hiatal hernia History of ulceration History of IBS Abdominal bloating Stomach pain Nausea & vomiting Shortness of breath on exertion Smoker History of echocardiogram Chest pain Pulmonary embolism Endometrial cancer Cervical cancer residential current use of 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 Ovarian cancer GERD [...] albuterol sulfate 90 mcg/actuation 1 inh inhalation [place] N 07/26/23 Unknown History aerosol inhaler oxycodone-acetaminophen [...] others: none Consults: Dr. Torrez (internal medicine) [facility] Narrative: Patient was initially tachypneic otherwise [...] anemia or thrombocytopenia noted BMP without significant [place] abnormalities, no sign of RADHA, LFTs within [...] to PCU This note was generated with Glanse dictation software. It may contain incorrectwords, spelling, [...] 94.7 H Lymph % (Auto) 2.7 L [place] % (Auto) 1.5 Eos % (Auto) 0.0 [...] Clarity Clear Urine pH 6.0 Ur Specific Casper 1.020 Urine Protein 100 H Urine Glucose [...] No Acute Findings. Reading Location: [facility] Chest CTA 07/20/24 21:15 IMPRESSION: 1. No evidence of pulmonary embolism. 2. Diffuse interlobular septal thickening, scattered ground-glass opacities and bilateral pleural effusions, concerning for pulmonary edema. 3. Cardiomegaly, with trace pericardial effusion. 4. Contrast reflux into the hepatic veins suggestive of right heart dysfunction. Reading Location: [facility] Discharge Plan Triage Chief Complaint: Shortness of [...] MD [Primary Care Provider] - Print Language: Grenadian What to do if you have Problems For any increased pain, shortness of breath, bleeding, nausea or vomiting, chestpain, or any unexpected problems, contact your Primary Care Provider. Call [facility] ([phone]) or report tothe closest Emergency Room. Call 911 if necessary. 07/20/242327 Cosigner Signature (if applicable): CC: Dr. Dex Wilkinson MD ~ Signed [facility]05-09-2025 Radiology Diagnostic study note [facility] Imaging Services [address] [place], [place] [address] Abdomen/Pelvis W IV Cont ONLY MR#: [id number] Acct: [id number] Name: MICHELLE MITCHELL Rep #: [id number] 3 : 1980 F 43 From: Mariana Moreno MD PCP: Dr. Dex Wilkinson MD Status: R EG ER Study:Abdomen/Pelvis W IV Cont ONLY Date of E xam: 07/20/24 Exam# [id number] Ordering Dr: Almaz Nair DO PROCEDURE: ABDOMEN/PELVIS [...] attenuation. 3. Small abdominopelvic ascites. [facility] CC: Dr. Dex Wilkinson MD; Dr. Carlos Nair DO ~ Hydrogenation Operator: Signed [facility]05-09-2025 Radiology Diagnostic study note [facility] Imaging Services [address] [place] [address] CTA Chest W/WO Contrast MR#: [id number] Acct: [id number] Name: MICHELLE MITCHELL Rep #: [id number] 2 : 1980 F 43 From: Mariana Moreno MD PCP: Dr. Dex Wilkinson MD Status: R EG ER Study:CTA Chest W/WO Contrast Date of Exam: 07/20/24 Exam# [id number] Ordering Dr: Almaz Nair DO PROCEDURE: CTA [...] suggestive of right heart dysfunction. [facility] CC: Dr. Dex Wilkinson MD; Dr. Carlos Nair DO ~ Hydrogenation Operator: Signed [facility]05-09-2025 Radiology Diagnostic study note [facility] Imaging Services [address] [place], [place] [address] Chest 1 View (Portable) MR#: [id number] Acct: [id number] Name: MICHELLE MITCHELL Rep #: [id number] 5 : 1980 F 43 From: Mariana Moreno MD PCP: Dr. Dex Wilkinson MD Status: R EG ER Study:Chest 1 View (Portable) Date of Exam: 07/20/24 Exam# [id number] Ordering Dr: Almaz Nair DO PROCEDURE: CHEST [...] Findings. Reading Location: [facility] CC: Dr. Dex Wilkinson MD; Dr. 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 Torrez (internal medicine) [facility] Narrative: Patient was initially tachypneic otherwise [...] anemia or thrombocytopenia noted BMP without significant [place] abnormalities, no sign of RADHA, LFTs within [...] to PCU This note was generated with Glanse dictation software. It may contain incorrectwords, spelling, [...] 94.7 H Lymph % (Auto) 2.7 L [place] % (Auto) 1.5 Eos % (Auto) 0.0 [...] Clarity Clear Urine pH 6.0 Ur Specific Casper 1.020 Urine Protein 100 H Urine Glucose [...] No Acute Findings. Reading Location: [facility] Chest CTA 07/20/24 21:15 IMPRESSION: 1. No evidence of pulmonary embolism. 2. Diffuse interlobular septal thickening, scattered ground-glass opacities and bilateral pleural effusions, concerning for pulmonary edema. 3. Cardiomegaly, with trace pericardial effusion. 4. Contrast reflux into the hepatic veins suggestive of right heart dysfunction. Reading Location: [facility] Discharge Plan Triage Chief Complaint: Shortness of [...] MD [Primary Care Provider] - Print Language: Grenadian What to do if you have Problems For any increased pain, shortness of breath, bleeding, nausea or vomiting, chestpain, or any unexpected problems, contact your Primary Care Provider. Call [facility] ([phone]) or report to the closest Emergency Room. Call 911 if necessary. 07/20/242327 <Electronically signed by Carlos Nair DO> Cosigner Signature (if applicable): CC: Dr. Dex Wilkinson MD ~ Signed [facility] Work Phone: 1(495) 835-510005-01-2025 [facility]04-27-2025 NoteHNO ID: [id number] Author: DEJA CASTELAN RN Service: Care Management [...] Primary Care Physician Name/Phone: Dr. Dex Wilkinson- [phone] Additional Information: Discharge order written for today. No skilled home going needs identified at discharge. SIGNATURE: Deja Castelan RN PATIENT NAME: Michelle Mitchell DATE: July 08, 2024 TIME: 7:29 [facility] CenterPtikrsdx04-79-7367 NoteHNO ID: [id number] Author: DEX WILKINSON MD Service: Family Practice [...] MD DATE: July 07, 2024 TIME: 8:21 [facility]mq[facility]os29-58-8439 NoteHNO ID: [id number] Author: TANJA VALVERDE RN Service: Care Management [...] Mitchell DATE: July 06, 2024 TIME: 11:23 [facility] HospitalXfxzegnr29-51-3926 NoteHNO ID: [id number] Author: DEX WILKINSON MD Service: Family Practice [...] Oral 70 16 95 % -- -- 07/05/24 2001 136/87 36.5 ?C (97.7 ?F) [...] -- 60.2 kg (132 lb 11.5 oz) 07/04/24 2150 117/78 36.4 ?C (97.5 ?F) Oral 66 18 97 % -- -- 07/04/242133 136/80 -- -- 77 20 99 % -- -- 07/04/242018 141/80 -- -- -- -- -- -- -- 07/04/24 195 144/84 -- -- 75 20 97 % -- -- 07/04/24 193 -- -- -- 70 22 -- -- [...] MD DATE: July 06, 2024 TIME: 8:07 [facility] HospitalHnlhkuff46-70-8967 NoteHNO ID: [id number] Author: RU GARCIA Internal Audit Senior Manager Service: Clinical Cardiology Author Type: Internal Audit Senior Manager Type: Progress Notes Filed: 07/05/2024 11:07 Note Text: Summary: Pacemaker Check Pacemaker checked with C-Note and data transmitted. Spoke to rep who will fax report directly to the floor. Floor notified.[facility] CenterOwwknxwl46-15-1599 NoteHNO ID: [id number] Author: TANJA VALVERDE RN Service: Care Management Author Type: Registered Nurse Type: Care Mgt Initial Assessment Filed: 07/05/2024 09:10 Note Text: CARE MANAGEMENT: ASSESSMENT AND DISCHARGE PLAN SERVICE DATE: July 05, 2024 SERVICE TIME: 9:05 AM licensed funeral director and embalmer spoke with patient to complete Care Management Assessment. Introduction made and role of Care Management explained. PCP: Dex Wilkinson MD - Patient confirmed. Primary Contact: Extended Emergency Contact Information Primary Emergency Contact: Babar Mitchell [address]: [address] [place] [address] Relation: Spouse Admission Status: Inpatient Insurance Provider: [employer] PPO Discharge Planning requested by: Per Department Practice Potential Transition Plans Home Advance Directives Current Advance Directive: None [employer] Financial Developer Attempted to Assist with AD Completion: Yes [...] General wellness, Be able to go home [place] of Choice Explained: [place] of Choice Given: No (Discharge Needs: To be Determined) Are you interested in bedside delivery of your medications? N/A Discharge Pharmacy Preference: [facility] [place] Discharge Planning Participant(s): Family (Spouse and 19 [...] Discharge Transportation: Family - Spouse or Daughter dept to follow. SIGNATURE: Tanja Valverde RN PATIENT NAME: Michelle Mitchell DATE: July 05, 2024 TIME: 9:05 [facility] HospitalZdskmoig55-78-3057 NoteHNO ID: [id number] Author: ALEKSANDRA CALDWELL APRN.CNP Service: General Internal Medicine Author Type: Nurse Practitioner Type: Progress Notes Filed: 07/05/2024 00:00 Note Text: INTERNAL MEDICINE PROGRESS NOTE SERVICE DATE: 07/04/2024 SERVICE TIME: 2099 Primary Attending: Dr. Harris, Shanna Gamino MD Subjective CHIEF COMPLAINT: Abdominal Pain (was seen twice at [place] her dr told her to come here [...] pain x3 days. Patient has presented to [facility] 2 times in the past few days with the same complaints and was discharge home. Patient continued to have worsening pain she discussed with her PCP Dr. Wilkinson who told her to go to [facility]. Lab work showing some mild transaminitis ALT/AST [...] 07/04/242018 141/80 -- -- -- -- -- 07/04/241958 144/84 -- -- 75 20 97 % 07/04/24 193 -- -- -- 70 22 -- 07/04/24 [...] Recent Labs 07/04/24 1 (more content not included)...[facility] CenterQfdiddxb03-54-6935 Evaluation note* Diagnosis Onset Date Resolution Status [...] Pulmonary hypertension acute Ma y 2024 8:24am [facility] Work Phone: 1(904) 466-742704-22-2025 Evaluation note* Diagnosis Onset Date Resolution Status [...] Pulmonary hypertension acute Ma y 2024 8:24am [facility] Work Phone: 1(472) 486-992404-22-2025 Evaluation note* Diagnosis Onset Date Resolution Status [...] disease) acute August 20, 2024 5 :47pm [facility] Work Phone: 1(248) 611-773404-22-2025 Evaluation note* Diagnosis Onset Date Resolution Status Admit Date Abdominal pain inactive June 1:06pm Hypertrophic cardiomyopathy inactive July 04, 2024 11:17am ICD (implantable cardioverter-defibrillator) in place inactive July 04, 2024 11:17am Pacemaker inactive July 04 11:17am Hypertrophic cardiomyopathy inactive July 10, 2024 1:28pm ICD (implantable cardioverter-defibrillator) in place inactive July 10, 2024 1:28pm Abdominal pain inactive July 12, 9:45am GERD (gastroesophageal reflu x disease) inactive July 12, 2024 9: 45am Hemorrhagic gastritis acute July 21, 2024 12:26am HFrEF (heart failure with reduced ejection fraction) acute July 122024 12:26am Pulmonary hypertension acute Ma y 2024 12:26am Vegetation of heart valve acute July 21, 2024 12:26am Elevated troponin resolved July 12:26am Nausea & vomiting resolved July h2024 12:26am Abdominal pain inactive July 21, [...] 8 :24am Elevated liver enzymes resolved Ju ne 2024 5:47pm Abdominal pain inactive August 20, 2024 5:47pm Dilated pancreatic duct inactive J une 2024 5:47pm GERD (gastroesophageal reflu x disease) inactive August 20, 2024 5 :47pm [facility] Work Phone: 1(479) 458-268204-20-2025 Radiology Diagnostic study note [facility] Imaging Services [address] [place] [address] Abdomen/Pelvis W IV Cont ONLY MR#: [id number] Acct: [id number] Name: MICHELLE MITCHELL Rep #: [id number] 2 : 1980 F 43 From: Natali Mancuso DO PCP: Dr. Dex Wilkinson MD Status: R EG ER Study:Abdomen/Pelvis W IV Cont ONLY Date of E xam: 07/01/24 Exam# [id number] Ordering Dr: Anita Wade PROCEDURE: ABDOMEN/PELVIS W [...] atelectasis. Reading Location: [facility] CC: Dr. Dex Wilkinson MD; MARCIO Haywood ~ Hydrogenation Operator: Signed [facility]04-20-2025 Telephone encounter Note* Telephone Encounter - Ella Cohen RN - 07/01/2024 3:41 PM EDT Your fax has been successfully sent to Dr. Wilkinson at [phone]. From: Ella Cohen RN 07/01/2024 3:37:02 PM Origin Record Created by SHANTE 07/01/2024 3:37:12 PM Conversion [[email or web address]] Type: application/postscript G3 to TIFF #1: Success [image/g3] (77ms) GhostScript TIFF #1: Success [image/tiff] (209ms) ([id number]) 07/01/2024 3:37:18 PM Transmission Record Sent to [id number] with remote ID "[id number]" Result: Success Page record: 1 - 3 Elapsed time: 01:39 on channel 48 07/01/2024 3:37:19 PM Conversion Successfully created cover sheet. Type: application/vnd.openxmlformats-officedocument.wordprocessingml.document G3 to TIFF #1: Success [image/g3] (11ms) GhostScript TIFF #1: Success [image/tiff] (70ms) Resubmitted: [application/postscript] Word Automation #1: Success [image/g3] (1519ms) ([id number]:WORKSRV1) [facility] Ytdidx70-58-0337 Miscellaneous Notes* Telephone Encounter - Ella Cohen RN - 07/01/2024 3:41 PM EDT Your fax has been successfully sent to Dr. Wilkinson at [phone]. From: Ella Cohen RN 07/01/2024 3:37:02 PM Origin Record Created by SHANTE 07/01/2024 3:37:12 PM Conversion [RFPEEF5.tmp.PRT] Type: application/postscript G3 to TIFF #1: Success [image/g3] (77ms) GhostScript TIFF #1: Success [image/tiff] (209ms) ([id number]:WORKSRV3) 07/01/2024 3:37:18 PM Transmission Record Sent to [phone] with remote ID "[id number]" Result: Success Page record: 1 - 3 Elapsed time: 01:39 on channel 48 07/01/2024 3:37:19 PM Conversion Successfully created cover sheet. Type: application/vnd.openxmlformats-officedocument.wordprocessingml.document G3 to TIFF #1: Success [image/g3] (11ms) GhostScript TIFF #1: Success [image/tiff] (70ms) Resubmitted: [application/postscript] Word Automation #1: Success [image/g3] (1519ms) ([id number]:WORKSRV1) * Telephone Encounter - Ella Cohen RN [...] smelled "fecal". 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 R: Patient understands care advice to go to ED now or call 911. Patient states she cannot leave [facility] at this time, but will go as soon as she has someone to take over care. Patient strongly advised to go immediately. She advises she will go to [place]. No further needs at this time. Patient [...] menstrual period?" no Protocols used: Abdominal Pain- Ahhwv-FJLTF-UT documented in this [facility]04-20-2025 Telephone encounter Note* Telephone Encounter - [...] smelled "fecal". 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 R: Patient understands care advice to go to ED now or call 911. Patient states she cannot leave [facility] at this time, but will go as soon as she has someone to take over care. Patient strongly advised to go immediately. She advises she will go to [place]. No further needs at this time. Patient [...] menstrual period?" no Protocols used: Abdominal Pain- Cuyko-BEMHH-GF T CentervilleIbcnkx38-29-1456 NoteHNO ID: [id number] Author: VANDANA CASTILLO RN Service: Care Management [...] Care Physician Name/Phone: Dex Wilkinson MD - [phone] Additional Information: Orders received for patient to discharge home. No skilled needs noted. Patient agreeable to discharge plan. Spouse to transport home. Bedside RN updated. SIGNATURE: Vandana Castillo RN PATIENT NAME: Michelle Mitchell DATE: May 21, 2024 TIME: 8:37 [facility]Qea[facility]pa13-53-9651 NoteHNO ID: [id number] Author: ULIS MIGUEL VUONG MD Service: Cardiovascular Disease Author [...] hours. SIGNATURE: Luis Miguel Vuong MD CELL; [phone] DATE: May 20, 2024 TIME: 11:40 [facility] HospitalFnypovkw28-54-7480 NoteHNO ID: [id number] Author: DEX WILKINSON MD Service: Family Practice [...] Temp src Pulse Resp SpO2 Weight 05/21/24 0800 -- -- -- 60 -- -- -- 05/21/24 0600 -- -- -- -- -- -- 53.8 [...] -- -- -- -- -- -- 05/20/24 0800 -- -- -- 68 -- -- -- 05/20/24 0517 -- -- -- -- -- -- 52.7 kg (116 lb 2.9 oz) 05/20/24 0408 115/56 -- -- (!) 55 -- -- -- 05/20/240 115/56 36.7 ?C (98.1 ?F) Temporal (!) 56 18 95 % -- 05/20/24 0000 121/60 36.7 ?C (98.1 ?F) Temporal 62 18 95 % -- 05/19/241999 116/59 36.8 ?C (98.3 ?F) Temporal 70 18 94 % -- 05/19/24 1639 120/56 -- -- -- -- -- -- 05/19/241599 -- -- -- 67 -- -- -- [...] MD DATE: May 21, 2024 TIME: 8:16 [facility] HospitalYqloydce44-70-2506 NoteHNO ID: [id number] Author: DEX WILKINSON MD Service: Family Practice [...] 63 16 97 % -- 05/17/24 0759 -- -- -- -- -- -- PHYSICAL [...] MD DATE: May 19, 2024 TIME: 7:24 AMTogus Va Medical CenterTrrnqryf93-93-5961 NoteHNO ID: [id number] Author: JUNIOR SPICER LISW Service: Care Management Author Type: Tax Record Clerk Type: Care Mgt Progress Note Filed: 05/18/2024 [...] Mitchell DATE: May 18, 2024 TIME: 4:49 PMTogus Va Medical CenterWpftfxlz63-33-5604 NoteHNO ID: [id number] Author: DEX WILKINSON MD Service: Family Practice [...] MD DATE: May 19, 2024 TIME: 7:11 [facility] HospitalQedoadnw78-59-6673 NoteHNO ID: [id number] Author: DEX WILKINSON MD Service: Family Practice [...] -- -- 64 -- -- -- 05/17/24 06 -- -- -- (!) 58 -- -- [...] MD DATE: May 18, 2024 TIME: 6:55 [facility] HospitalMjuxnstf99-47-8105 NoteHNO ID: [id number] Author: ALEXANDRIA COLE LSW Service: Care Management Author Type: Tax Record Clerk Type: Care Mgt Initial Assessment Filed: 05/16/2024 12:57 Note Text: CARE MANAGEMENT: ASSESSMENT AND DISCHARGE PLAN SERVICE DATE: May 16, 2024 SERVICE TIME: 12:53 PM PCP: Dex Wilkinson MD-verified Primary Contact: Extended Emergency Contact Information Primary Emergency Contact: Babar Mitchell Address: [address] [place] [address] 1 [place], [place] [address] [place] [address] Mobile Relation: Spouse Admission Status: Inpatient Insurance Provider: [place] [employer] O Discharge Planning requested by: Per Department Practice Potential Transition Plans Home, To Be Determined Advance Directives Current Advance Directive: None Peoplesoft Financial Developer Attempted to Assist with AD Completion: Yes [...] Be able to go home, Less pain Davison of Choice Explained: Davison of Choice Given: No Reason Not Given: [...] Is from home w/spouse and 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 Spouse to transport home when medically ready for discharge. SIGNATURE: Alexandria Cole ROOMS DIRECTOR, PUBLIC HEALTH PROFESSOR PATIENT NAME: Michelle Mitchell DATE: May 16, 2024 TIME: 12:53 PMTogus Va Medical CenterOeeoodqr97-51-1398 NoteHNO ID: [id number] Author: DEX WILKINSON MD Service: Family Practice [...] Temporal 61 20 96 % -- -- 05/15/24 2000 124/66 36.4 ?C (97.6 ?F) Temporal 70 20 96 % -- -- 05/15/24 1817 149/96 36.6 ?C (97.8 ?F) [...] MCH 32.2 MPV 10.5 Coags: Recent Labs 03/04/25 1125 INR 1.1 APTT 28.2 CMP: Recent [...] MD DATE: May 16, 2024 TIME: 8:00 [facility] HospitalHtmyturs04-47-9954 NoteHNO ID: [id number] Author: GIULIANO LEZAMA APRN.WHEEL AND PINION INSPECTOR Service: General Internal Medicine Author Type: Nurse [...] revision 2008, explant/reimplant 10/19/2016), pericarditis, gerd, PE 2017, endometrial/ovarian epithelial cancer, and breast cancer s/p [...] 96 % -- (more content not included)... [facility] CenterMqyputip70-94-1279 MeskRKGH-OBH-4 (AGENT OF COVID-19) RNA: Not detected INFLUENZA A RNA: Not detected INFLUENZA B RNA: Not detected RESPIRATORY SYNCYTIAL VIRUS (RSV) RNA: Not detectedCorunna HospitalComment on above:Performed By: #### [id number] ####[facility] LABORATORYCLIA [id number] [place] [address] [facility] QAGFOCP88-42-5002 Evaluation note* Diagnosis Onset Date Resolution Status Admit Date Hypertrophic cardiomyopathy acute March 28, 2024 11:28am ICD (implantable cardioverter-defibrillator) in place acute March 28 11:28am [facility] Work Phone: 1(564) 954-517101-15-2025 Evaluation note* Diagnosis Onset Date Resolution Status [...] 2024 9: 45am Abdominal pain acute July 20 025 11:40pm Elevated troponin acute July 11:40pm Heart failure of unknown etiology acute July 20, 2024 11 :40pm Hypertrophic cardiomyopathy acute July 20, 2024 11:40pm ICD (implantable cardioverter-defibrillator) in place acute July 20, 2024 11 :40pm Leukocytosis acute July 20 11:40pm Nausea & vomiting acute July 11:40pm Pacemaker acute July 20, 2024 11:40pm [facility] Work Phone: 1(200) 771-930001-15-2025 Evaluation note* Diagnosis Onset Date Resolution Status [...] 2024 12:26am Hypertension chronic July 21 12:26am [facility] Work Phone: 1(170) 719-274808-19-2024 Evaluation + Plan noteExtracted from: Title:Clinical Document Author:VICTOR M ORTIZ Date:10/31/23 MEDICINE BOW ADMISSION HISTORY AN D PHYSICIAL CHIEF COMPLAINT: HISTORY OF PRESENT ILLNESS: REVIEW OF SYSTEMS: ACTIVE PROBLEMS: (5) Anxiety associated with depression (486036593) Hypertrophic cardiomyopathy (159495596) IBS (irritable bowel syndrome) (30355029) Rectal bleeding (774146271) Tobacco use (7977674078) MEDICATIONS: Active Inpt Meds: None Active PRN Meds: None One Time Meds: None Active IV Meds: Lactated Ringers Infusion 1,000 mL (LR 1,000 mL) Start: 10/31/23 9:47:00 EDT, Rate: 50 mL/hr, 10/31/23 9:47:00 EDT ALLERGIES: (3) codeine morphine Zithromax FAMILY HISTORY: SOCIAL HISTORY: PHYSICAL EXAM: VITALS: FjiqxhMseaWNPstvlYWIgE7NLM3DikeIp(kg) 10/30 10:0436.6--210162BO23/19 57.0 24 Hr Tmax: 36.6 at 10/30 [...] from: Title:Clinical Document Author:VICTOR M ORTIZ Date:10/31/23 MEDICINE BOW ADMISSION HISTORY AN D PHYSICIAL CHIEF COMPLAINT: HISTORY OF PRESENT ILLNESS: REVIEW OF SYSTEMS: ACTIVE PROBLEMS: (5) Anxiety associated with depression (382698814) Hypertrophic cardiomyopathy (093158634) IBS (irritable bowel syndrome) (94331173) Rectal bleeding (135286851) Tobacco use (6721272938) MEDICATIONS: Active Inpt Meds: None Active PRN Meds: None One Time Meds: None Active IV Meds: Lactated Ringers Infusion 1,000 mL (LR 1,000 mL) Start: 10/31/23 9:47:00 EDT, Rate: 50 mL/hr, 10/31/23 9:47:00 EDT ALLERGIES: (3) codeine morphine Zithromax FAMILY HISTORY: SOCIAL HISTORY: PHYSICAL EXAM: VITALS: JplxjhFbsmZYBkhajNUSlQ4LBU8XgioAo(kg) 10/30 10:0436.6--667204JK16/19 57.0 24 Hr Tmax: 36.6 at 10/30 [...] changes to the H&P unless noted below. [facility] 08-19-2024 Hospital Discharge instructions Patient Education 10/31/2023 [...] until you are awake and alert. Take kayi-qno-ocbvyhc and prescription medicines only as told by [...] 12/19/2013 Document Revised: 02/10/2018 Document Reviewed: 06/19/2016 [employer] Patient Education 2020 [employer]. 10/31/2023 10:42:58 Colonoscopy, Adult, Care After, Cyxm-lk-Larx Colonoscopy, Adult, Care After This sheet gives [...] are soft and easy to digest. Take wlae-zlc-gmdpkuu or prescription medicines only as told by [...] 04/02/2011 Document Revised: 12/29/2017 Document Reviewed: 11/22/2016 [employer] Patient Education 2020 [employer]. Follow Up Care 10/13/2023 09:56:55 With:VICTOR M ORTIZ MD [address] [phone] When: Unknown Comments:The office will call within 2 weeks with pathology results and a follow up visit will be scheduled. [facility] 08-19-2024 Summary of episode note Discharge Instructions Thank you for allowing [facility] to assist you with your healthcare needs. The following is importantdischarge information regarding your hospital visit. Your Care Team WILKINSON, DEX B MD What to do next Follow Up Appointments Follow Up with VICTOR M ORTIZ MD Where:[address] [place] [address] [place] [phone] Additional Information: The office will call within [...] until you are awake and alert. Take mufb-euf-orpwact and prescription medicines only as told by [...] 12/19/2013 Document Revised: 02/10/2018 Document Reviewed: 06/19/2016 [employer] Patient Education 2020 [employer] Colonoscopy, Adult, Care After This sheet [...] are soft and easy to digest. Take ljsu-gng-ioocwod or prescription medicines only as told by [...] 04/02/2011 Document Revised: 12/29/2017 Document Reviewed: 11/22/2016 Elsevier Patient Education 2020 [employer] Additional Information VACCINATE! IT SAVES LIVES! Members of the community who have not yet received the COVID-19 vaccine and would like to receive it can visit one of [facility] vaccine clinics. There are many vaccine clinic locations within the [facility]. For locations and available times, please visit https://gettheshot.coronavirus.[place].gov/. It is important to note that some COVID mobile vaccine clinics are held outdoors and may be canceled in rainy or stormy conditions. To learn more about pediatric vaccinations (ages 5-11), we invite you to visit the [facility] webpage. [email or web address]://www.[email or web address]/[email or web address]-Pfnalkbwsqc-Bvezaamkiz-[email or web address]-Jns stions.htmlTo learn more about the COVID-19 vaccine, we invite you to visit the CDC website for a list of frequently asked questions.https://www.cdc.gov/coronavirus/2019-ncov/vaccines/faq.html [facility] Patient Portal Access Instructions: Stay connected with your healthcare team and access your personal medical information anytime with the [facility] Patient Portal. Please follow the directions below to create your [place] account: 1.Access the email account you provided upon registration to the hospital/physician office.2.Look for an invitation email from [facility].3.Open the email and access the invitation link: AcceptInvitation to [facility].4.Fill in the required pandey to create your account. To access your account, visit [employer]/RenéSimOneChart. Click the blue button labeled "Access Patient Portal" and then log in with the username and password that you created in the steps above. You will be able to view your test results, lab results, a summary of your visits, upcoming appointments and more. There is also a convenient messaging option where you can send secure messages to your p VuCOMPvider. In addition, you will have the ability to download any documents or summaries to your computer and/or send the information securely to a physician. Remember that your healthcare information is confidential, so carefully consider who you will allowto register on the [facility] Patient Portal for access to your information. You can also access the [facility] Patient Portal on the [employer] Carewhere johanna. Simply click on "Patient Portal" and then log into your account. If you would like to receive a full copy of your medical records, please contact the [facility] Medical Records Department by calling [phone], Tuesday through Tuesday between 8 a.m. and [...] Call your local pharmacy or go to [email or web address] to find one close to you.3.Make use of household items: Use cat litter or old coffee grounds to dispose medications if other options arenot available. Mix your drugs with these household products, seal them in an airtight container andthrow it into the garbage. Call [facility]: [phone] to be sure your drugs can be [...] Adult, Care After Colonoscopy, Adult, Care After, Qkss-se-Kdjv Medication Leaflets My discharge plan and instructions have been reviewed and explained to me and KENDRA De Jesus CHRISTAL J understand my current condition and have read and understand these discharge instructions. I have received a written copy of the plan/instructions. If I have questions, I am aware that I should contact my doctor. Patient/Fixing Machine Operator Signature: Date/Time: Relationship to Patient: Witness Name/Signature: Date/Time: [facility]08-19-2024 Note MEDICINE BOW ADMISSION HISTORY AND PHYSICIAL CHIEF COMPLAINT: HISTORY OF PRESENT ILLNESS: REVIEW OF SYSTEMS: ACTIVE PROBLEMS: (5) Anxiety associated with depression (349588638) Hypertrophic cardiomyopathy (022504121) IBS (irritable bowel syndrome) (11063546) Rectal bleeding (313916109) Tobacco use (5526134690) MEDICATIONS: Active Inpt Meds: None Active PRN Meds: None One Time Meds: None Active IV Meds: Lactated Ringers Infusion 1,000 mL (LR 1,000 mL) Start: 10/31/23 9:47:00 EDT, Rate: 50 mL/hr, 10/31/23 9:47:00 EDT ALLERGIES: (3) codeine morphine Zithromax FAMILY HISTORY: SOCIAL HISTORY: PHYSICAL EXAM: VITALS: SoydrtIymjWBWlrepXRCfK5PSV0GeeyBz(kg) 10/30 10:0436.6--547136OU86/19 57.0 24 Hr Tmax: 36.6 at 10/30 [...] M ORTIZ MD on 10/31/2023 10:12 AM [facility]08-19-2024 Note MEDICINE BOW ADMISSION HISTORY AND PHYSICIAL CHIEF COMPLAINT: HISTORY OF PRESENT ILLNESS: REVIEW OF SYSTEMS: ACTIVE PROBLEMS: (5) Anxiety associated with depression (489273422) Hypertrophic cardiomyopathy (485413830) IBS (irritable bowel syndrome) (40806253) Rectal bleeding (788955067) Tobacco use (5888411355) MEDICATIONS: Active Inpt Meds: None Active PRN Meds: None One Time Meds: None Active IV Meds: Lactated Ringers Infusion 1,000 mL (LR 1,000 mL) Start: 10/31/23 9:47:00 EDT, Rate: 50 mL/hr, 10/31/23 9:47:00 EDT ALLERGIES: (3) codeine morphine Zithromax FAMILY HISTORY: SOCIAL HISTORY: PHYSICAL EXAM: VITALS: VcxiubXtylZZHmfohANClR2IBT0QvqsOp(kg) 10/30 10:0436.6--437225RZ97/19 57.0 24 Hr Tmax: 36.6 at 10/30 [...] M ORTIZ MD on 10/31/2023 10:11 AM [facility]08-[facility] Anesthesiology Consult note Patient: MICHELLE MITCHELL Age: 43 years Sex: Female : 1980 Associated Diagnoses: None Author: ANGELIA GIBBS 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 Comments: 10/26/2023 10:54 Sophie Abraham RN PACER WITH DEFIB Mastectomy of left breast (6607107205). Laparoscopic cholecystenterostomy (8029981417). H/O: tubal ligation (804876667). Ablation of uterine fibroid using magnetic resonance imaging guidance (4709411751). History of appendectomy (5743849456). Social History: Social & Psychosocial Habits Alcohol [...] Equipment: Extension set . Assessment and Plan [place] Society of Anesthesiologists (ASA) physical status classification: Class II. Anesthetic Preoperative Plan Anesthetic technique: MAC. Postoperative pain management: Per surgeon. Informed consent: signed by patient. Digitally Signed by ANGELIA GIBBS on 10/31/2023 10:06 AM [facility]04-22-2024 Telephone encounter Note* Telephone Encounter - Angela Krishna RN - 07/04/2023 7:34 PM EDT To:Angela Krishna 07/04/2023 7:33 PM Your fax has been successfully sent to Dr Wilkinson at [phone]. 07/04/2023 7:30:51 PM Transmission Record Sent to [phone] with remote ID "[id number]" Result: (0) Success Page record: 1 - 3 Elapsed time: 01:48 on channel 50 07/04/2023 7:29:28 PM Conversion Record Successfully created cover sheet. Type: application/vnd.QuinStreetxmlformats-officedocument.wordprocessingml.document G3 to TIFF #1: Success [image/g3] (63ms) GhostScript TIFF #1: Success [image/tiff] (220ms) Resubmitted: [application/postscript] Word Automation #1: Success [image/tiff] (1411ms) ([id number]:WORKSRV2) 07/04/2023 7:29:06 PM Conversion Record [RFPDA51.tmp.PRT] Type: application/postscript G3 to TIFF #1: Success [image/g3] (92ms) GhostScript TIFF #1: Success [image/tiff] (359ms) ([id number]:WORKSRV2) 07/04/2023 7:28:56 PM Origin Record Created by MERCEDES CentervilleBgeoax07-95-3558 Miscellaneous Notes* Telephone Encounter - Angela Krishna RN - 07/04/2023 7:34 PM EDT To:Angela Krishna 07/04/2023 7:33 PM Your fax has been successfully sent to Dr Wilkinson at [phone]. 07/04/2023 7:30:51 PM Transmission Record Sent to [phone] with remote ID "[id number]" Result: (0) Success Page record: 1 - 3 Elapsed time: 01:48 on channel 50 07/04/2023 7:29:28 PM Conversion Record Successfully created cover sheet. Type: application/vnd.openxmlformats-officedocument.wordprocessingml.document G3 to TIFF #1: Success [image/g3] (63ms) GhostScript TIFF #1: Success [image/tiff] (220ms) Resubmitted: [application/postscript] Word Automation #1: Success [image/tiff] (1411ms) ([id number]:WORKSRV2) 07/04/2023 7:29:06 PM Conversion Record [RFPDA51.tmp.PRT] Type: application/postscript G3 to TIFF #1: Success [image/g3] (92ms) GhostScript TIFF #1: Success [image/tiff] (359ms) ([id number]:WORKSRV2) 07/04/2023 7:28:56 PM Origin Record Created by [...] be seen in ED, Patient agreeable to [facility] and will have her drive her. Patient understands care advice. No further needs at this time. Reason for Disposition [1] MODERATE difficulty breathing (e.g., speaks in phrases, SOB even at rest, pulse 100-120) AND [2] NEW-onset or WORSE than normal Protocols used: Breathing Zsqtwduicf-RUHSQ-HK documented in this [facility]04-22-2024 Telephone encounter Note* Telephone Encounter - [...] be seen in ED, Patient agreeable to [facility] and will have her drive her. Patient understands care advice. No further needs at this time. Reason for Disposition [1] MODERATE difficulty breathing (e.g., speaks in phrases, SOB even at rest, pulse 100-120) AND [2] NEW-onset or WORSE than normal Protocols used: Breathing Zemsphiprm-ARABL-HT CentervilleDfkmtk01-37-4993 Hospital Discharge instructions Additional Instructions Stop taking the clindamycin and start taking Augmentin instead. Follow-up with your dentist on Tuesday. Return to emergency room with any worsening symptoms or you have difficulty swallowing.[facility] Work Phone: 1(304) 383-396302-14-2022 NoteHNO ID: [id number] Author: Vandana Becerra MD Service: Hospital Medicine Author Type: Resident Type: Plan of Care Filed: 04/26/2021 10:10 PM Note Text: Patient states she has her son in a car accident and has to leave AMA. Patient understands the risks of leaving AMA including worsening shortness of breath, heart failure and . She still wants to leave AMA. Patient has capacity. Vandana Becerra MDBristol County Tuberculosis HospitalLqggscsg29-93-2037 NoteHNO ID: [id number] Author: Vandana Becerra MD Service: Hospital Medicine Author Type: Resident Type: Plan of Care Filed: 04/26/2021 8:00 PM Note Text: Chart reviewed. ACS unlikely. Will give one dose ibuprofen for the pleuritic chest pain (Has h/o abnormal uterine bleed, however had ablation; no history of GI bleed.) Vandana Becerra MDBristol County Tuberculosis HospitalXvnkylzr72-70-7303 NoteHNO ID: [id number] Author: Aj Mullins MD Service: Hospital Medicine Author Type: Physician Type: Progress Notes Filed: 04/26/2021 3:41 PM Note Text: DEPARTMENT OF HOSPITAL MEDICINE PROGRESS NOTE SERVICE DATE: 04/26/2021 SERVICE TIME: 3:30 PM Hospital Medicine/Primary Attending: Aj Mullins MD NIGHT AND WEEKEND COVERAGE: [place] COVERAGE:TEAM 2: [id number], please call Team 2 pager [phone]. [id number], please call [facility] Night Coverage pager [phone]) for Teams 1, 2, AND 3 Subjective [...] -- 04/25/21 0830 activity - mobilize patient (dc,al) VTE Prophylaxis: on AC Disposition: Home Plan of care discussed with: Patient, RN and Consultants: cardiology dr. Zaragoza and Francisco TROY SIGNATURE: Aj Mullins MD PATIENT NAME: Michelle Mitchell DATE: April 26, 2021 TIME: 3:30 PM etx 1013516UszvnimxBristol County Tuberculosis HospitalKalbbiio00-81-2732 NoteHNO ID: [id number] Author: CHAKA Pedraza Tech Service: ? Author Type: Senior Procurement Specialist Type: Procedures Filed: 04/25/2021 2:42 PM Note Text: [employer] pacer interrogation done on 04/25/2021 @ 142[facility] notified to call for report.[facility] Tuberculosis HospitalAztudidv06-43-9899 Influenza virus A and B RNA and SARS-CoV-2 (COVID-19) N gene panel BIMAL+probe (Resp)COVID 19 RESULT: SARS-CoV-2 (Agent of COVID-19) Not Detected by PCR. INFLUENZA A PCR: Negative for Influenza A by RT-PCR INFLUENZA B PCR: Negative for Influenza B by RT-PCRCalais Regional HospitalComment on above: Performed By: #### [id number] #### [facility] CLIA [id number] [address] [place] [address] [facility] AMERICADischarge summary Author Willian Ovalles [facility] Note Date/Time July 24, 2024 8:43a m [facility] Medical Records Department [address] [place] [address] Discharge Summary 07/24/24 0839 MR#: [id number] Acct: [id number] Name: MICHELLE MITCHELL Angelo Rep #:[id number] 8 : 1980 43 From: Willian Ovalles DO PCP: Dr. Dex Wilkinson MD Status:A DM IN Location: [place] [address] Providers Date of Admission: 07/21/24 Primary Care Physician: Dr. Dex Wilkinson MD Consultations 07/21/24 00:48 Consult: Cardiology Routine Consulting Provider: [facility] Reason for Consult: AE CHF, Elevated Troponin and Near Syncope with Hypertrophic CM EMERGENT Consult: No MD Notified: Yes Date Notified: 07/21/24 Time Notified: 06:52 Method of Notification: Text Method of Consult:: In-Person 07/23/24 08:42 Consult: Gastroenterology Routine Consulting Provider: [facility] Reason for Consult: gastritis. clearance for [...] on following up with Dr. Aguilar at [facility], CTS at [facility] that specialized in cardiac transplantation. She may [...] accepted to [facility], awaiting on bed availablily. Medications at Discharge [...] heart transplant. So that is the reason [facility] was selected as a facility for transfer. [...] Care Hospital Charges/Coding Visit Charges Inpatient E&M: 48567 Disch Hosp >30min 07/24/24 0843 <Electronically signed by Willian Ovalles DO> Cosigner Signature (if applicable): CC: Dr. Willian Ovalles DO; Dr. Dex Wilkinson MD~ Signed [facility] Work Phone: Discharge summary Author Gage Sharma [facility] Note Date/Time August 11, 2024 1:39p m [facility] Medical Records Department [address] [place] [address] Emergency Department Summary 08/11/24 MR#: [id number] Acct: [id number] Name: MICHELLE MITCHELL Rep #:[id number] : 1980 43 From: Gage rush [...] intact Psych: Cooperative, appropriate mood and affect [facility] Medical History (Updated 08/11/24 @ 13:36 by [...] pain Pulmonary embolism Endometrial cancer Cervical cancer 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 Cloudy Urine pH 7.0 Ur Specific [place] 1.010 Urine Protein 15 H Urine Glucose [...] Colonic diverticulosis without acute diverticulitis. Reading Location: [facility] Discharge Plan Triage Chief Complaint: Flank Pain [...] PM given you received Toradol. Print Language: Grenadian Disposition Disposition: Home, Self Care What to do if you have Problems For any increased pain, shortness of breath, bleeding, nausea or vomiting, chestpain, or any unexpected problems, contact your Primary Care Provider. Call [facility] ([phone]) or report to the closest Emergency Room. Call 911 if necessary. 08/11/24 8213 <Electronically signed by Gage Sharma DO> Cosigner Signature (if applicable): CC: Dr. Dex Wilkinson MD ~ Signed [facility] Work Phone: Evaluation noteNo assessment information available [facility] Work Phone: Evaluation note* Diagnosis Pre-operative examination- [...] echocardiography (MICKI)- Primary [facility]* Diagnosis Pre-operative examination- Primary Preoperative examination, [...] examination, unspecified- Primary documented [facility]* Diagnosis Hypertrophic cardiomegaly- Primary Chronic heart failure with preserved ejection fraction (HFpEF) Cardiomyopathy, hypertrophic nonobstructive (Multi) Other primary cardiomyopathies History of pulmonary embolism Personal history of venous thrombosis and embolism Other ascites Atypical chest pain Other chest pain documented in this encounter [facility] Work Phone: Evaluation note* Diagnosis Heart failure, unspecified documented in this encounter [facility] Work Phone: Hospital course Narrative No data available for this section [facility] Hospital Discharge instructions Additional Instructions See your dentist as soon as possible.[facility] Work Phone: Hospital Discharge instructions Additional Instructions Return if feeling worse. Follow-up with your doctor if not improving. All your test tonight were unremarkable.[facility] Work Phone: Hospital Discharge instructions Additional Instructions Please follow-up with cardiology secondary to your hypertrophic obstructive cardiomyopathy and return to the ER should [facility] have any [facility] Work Phone: Hospital Discharge instructions Additional Instructions You do have some pathology, you do have some ascites, a small right pleural effusion, you need to follow-up outpatient. Return here for worsening symptoms.[facility] Work Phone: Hospital Discharge instructions Additional Instructions Your CT scan showed inflammation of your ileum concerning for inflammatory bowel disease. Please follow-up with gastroenterology to discuss further evaluation of this. Take the prescribed medication as directed to help control symptoms and return to the ER should you have any further [facility] Work Phone: Hospital Discharge instructions Additional Instructions Follow-up with primary care physician. At this point no clear reason for your pain however suspect it was likely secondary to passed kidney stone. Return back to the ED if symptoms change or worsen. You received a Toradol here in the emergency department. No ibuprofen until 6 PM given you received Toradol.[facility] Work Phone: Reason for visit Narrative* Auth/Cert (Routine) Specialty Diagnoses / Procedures Referred By Annalisa t Referred To Contact [facility] INPATIENT Diagnoses Endocarditis Procedures [id number] [place] [address] Phone: tel: Referral ID Status Reason Start Date Expiration Date Visits Re quested Visits Authorized [id number] 1 1 [facility] for visit Narrative* Cardiovascular (Routine) - Authorized Specialty Diagnoses / Procedures Referred By Annalisa t Referred To Contact Diagnoses Heart failure, unspecified Procedures ECG 12 lead Radu Kay MD [address] [facility] [address] [place] [address] Phone: tel: fax: Referral ID Status Reason Start Date Expiration Date V isits Requested Visits Authorized [id number] Authorized 08/23/2024 08/23/2025 [address] [facility] Work Phone: Summary Purpose Family History Relationship Condition Age [...] Will No November 02 10:05pm Power of Architect No November 02 10:05pm Advance Directive Response Recorded Date/ Time Living Will No November 13 4:21pm Power of Architect No November 13, 2021 4:21pm Advance Directive Response Recorded Date/ Time Living Will No December 16 10:45pm Power of Architect No December 16 10:45pm Advance Directive Response Recorded Date/ Time Living Will No March 09 9:21am Power of Architect No March 09, 2022 9:21am Advance Directive Response Recorded Date/ Time Living Will No December 25 9:27pm Power of Architect No December 25, 2022 9:27pm Advance Directive Response Recorded Date/ Time Living Will No July 04, 2023 8:21pm Power of Architect No July 03 8:21pm Advance Directive Response Recorded Date/ Time Living Will No October 31 11:40pm Do you have a Healthcare Power of Architect? No November 01, 2023 11:40pm Living Will No May 12, 2024 1:07am Do you have a Healthcare Power of Architect? No May 12, 2024 1:07am Living Will No July 01, 2024 8:41pm Do you have a Healthcare Power of Architect? No July 01, 2024 8:41pm Advance Directive Response Recorded Date/ Time Living Will No October 31 11:40pm Do you have a Healthcare Power of Architect? No November 01, 2023 11:40pm Living Will No May 12, 2024 1:07am Do you have a Healthcare Power of Architect? No May 12, 2024 1:07am Living Will No July 01, 2024 8:41pm Do you have a Healthcare Power of Architect? No July 01, 2024 8:41pm Do you have a Healthcare Power of Architect? No July 03, 2024 1:43pm Do you have a Healthcare Power of Architect? No July 10, 2024 11:58am Do you have a Healthcare Power of Architect? No July 20, 2024 7:24pm Advance Directive Response Recorded Date/ Time Living Will No October 31 11:40pm Do you have a Healthcare Power of Architect? No November 01, 2023 11:40pm Living Will No May 12, 2024 1:07am Do you have a Healthcare Power of Architect? No May 12, 2024 1:07am Living Will No July 01, 2024 8:41pm Do you have a Healthcare Power of Architect? No July 01, 2024 8:41pm Do you have a Healthcare Power of Architect? No July 03, 2024 1:43pm Do you have a Healthcare Power of Architect? No July 10, 2024 11:58am Do you have a Healthcare Power of Architect? No July 21, 2024 1:00am Date Activated [...] Do you have a Healthcare Power of Architect? No May 12, 2024 1:07am Living Will No July 01, 2024 8:41pm Do you have a Healthcare Power of Architect? No July 01, 2024 8:41pm Do you have a Healthcare Power of Architect? No July 03, 2024 1:43pm Do you have a Healthcare Power of Architect? No July 10, 2024 11:58am Do you have a Healthcare Power of Architect? No July 21, 2024 1:00am Advance Directive Response Recorded Date/ Time Living Will No May 12, 2024 1:07am Do you have a Healthcare Power of Architect? No May 12, 2024 1:07am Living Will No July 01, 2024 8:41pm Do you have a Healthcare Power of Architect? No July 01, 2024 8:41pm Do you have a Healthcare Power of Architect? No July 03, 2024 1:43pm Do you have a Healthcare Power of Architect? No July 10, 2024 11:58am Do you have a Healthcare Power of Architect? No July 21, 2024 1:00am Do you have a Healthcare Power of Architect? No August 11, 2024 10:27am Advance Directive Response Recorded Date/ Time Living Will No May 12, 2024 1:07am Do you have a Healthcare Power of Architect? No May 12, 2024 1:07am Living Will No July 01, 2024 8:41pm Do you have a Healthcare Power of Architect? No July 01, 2024 8:41pm Do you have a Healthcare Power of Architect? No July 03, 2024 1:43pm Do you have a Healthcare Power of Architect? No July 10, 2024 11:58am Do you have a Healthcare Power of Architect? No July 21, 2024 1:00am Do you have a Healthcare Power of Architect? No August 11, 2024 10:27am Do you have a Healthcare Power of Architect? No August 20, 2024 3:00pm Advance Directive Response Recorded Date/ Time Living Will No May 12, 2024 1:07am Do you have a Healthcare Power of Architect? No May 12, 2024 1:07am Living Will No July 01, 2024 8:41pm Do you have a Healthcare Power of Architect? No July 01, 2024 8:41pm Do you have a Healthcare Power of Architect? No July 03, 2024 1:43pm Do you have a Healthcare Power of Architect? No July 10, 2024 11:58am Do you have a Healthcare Power of Architect? No July 21, 2024 1:00am Do you have a Healthcare Power of Architect? No August 11, 2024 10:27am Do you have a Healthcare Power of Architect? No August 20, 2024 6:53pm Advance Directive Response Recorded Date/ Time Living Will No July 01, 2024 8:41pm Do you have a Healthcare Power of Architect? No July 01, 2024 8:41pm Do you have a Healthcare Power of Architect? No July 03, 2024 1:43pm Do you have a Healthcare Power of Architect? No July 10, 2024 11:58am Do you have a Healthcare Power of Architect? No July 21, 2024 1:00am Do you have a Healthcare Power of Architect? No August 11, 2024 10:27am Do you have a Healthcare Power of Architect? No August 20, 2024 6:53pm Do you have a Healthcare Power of Architect? No September 11, 2024 9:31pm Chief Complaint and Reason for Visit Chief [...] 2024 9:45am GERD (gastroesophageal reflux disease) M 2024 9:45am Abdominal pain July 20, 2024 [...] PAIN W/ WORSENING LFT'S August 23, 025 5:25pm RUQ PAIN W/ WORSENING LFT'S [...] W/ WORSENING LFT'S August 23, 025 8:04pm RUQ PAIN W/ WORSENING LFT'S [...] une 2024 5:47pm Chief Complaint Admit Date abdominal pin July 01, 2024 7:5 1pm [...] 7:13pm RUQ PAIN W/ WORSENING LFT'S August 21 025 5:18pm RUQ PAIN W/ WORSENING LFT'S August 21 025 5:24pm RUQ PAIN W/ WORSENING LFT'S August 22 025 12:11pm RUQ PAIN W/ WORSENING LFT'S August 23 025 5:25pm RUQ PAIN W/ WORSENING LFT'S August 23 025 8:04pm RUQ PAIN W/ WORSENING LFT'S August 24 025 1:12pm ABD PAIN August 27, 2024 11:0 0am ABD PAIN August 28, 2024 11:5 1am abd pain September 11, 2024 11:29 pm Additional Source Comments INFORMATION SOURCE (unrecogn ized section and content) DATE CREATED AUTHOR 08/27/2017 [facility] DATE CREATED AUTHOR AUTHOR'S ORGANIZ ATION 08/29/2017 [facility] DATE CREATED AUTHOR AUTHOR'S ORGANIZ ATION 03/22/2020 [employer] DATE CREATED AUTHOR AUTHOR'S ORGANIZ ATION 03/23/2020 [facility] DATE CREATED AUTHOR AUTHOR'S ORGANIZ ATION 04/17/2020 [facility] DATE CREATED AUTHOR AUTHOR'S ORGANIZ ATION 11/04/2020 [facility] DATE CREATED AUTHOR AUTHOR'S ORGANIZ ATION 04/28/2021 [facility] DATE CREATED AUTHOR AUTHOR'S ORGANIZ ATION 11/12/2023 [facility] DATE CREATED AUTHOR AUTHOR'S ORGANIZ ATION 01/07/2024 [facility] DATE CREATED AUTHOR AUTHOR'S ORGANIZ ATION 07/16/2024 [facility] DATE CREATED AUTHOR AUTHOR'S ORGANIZ ATION 08/12/2024 [facility] DATE CREATED AUTHOR AUTHOR'S ORGANIZ ATION 08/26/2024 [facility] DATE CREATED AUTHOR AUTHOR'S ORGANIZ ATION 08/27/2024 [facility] DATE CREATED AUTHOR AUTHOR'S ORGANIZ ATION 08/29/2024 [facility] DATE CREATED AUTHOR AUTHOR'S ORGANIZ ATION 09/11/2024 [facility] Goals (unrecognized section and content) Goals may [...] Active Rubin Briggs MD Emergency Provider Active Craft Demonstrator Relationship Specialty Start Date End Date Dex Wilkinson MD [address] [facility] [address] [place] [phone] PCP - General Family Medicine 4/20/25 Team Status: Inactive Member Role Status Dates [...] 2024 End: March 28, 2024 Dr. Dex Wilkinson MD Referring Provider Active Start: March [...] 2024 End: July 24, 2024 Bogdan Bates NETSUITE DEVELOPER, NETSUITE DEVELOPER-C Other Provider Active Start : July 21, [...] Active Start: July 21, 2024 Bogdan Bates NETSUITE DEVELOPER, NETSUITE DEVELOPER-C Other Provider Active Start : July 21, [...] Active Start: July 21, 2024 Bogdan Bates NETSUITE DEVELOPER, NETSUITE DEVELOPER-C Other Provider Active Start : July 21, 2024 Xochitl Bourne PA, PA Other Provider Active Start: July 21, 2024 MARCIO Lemus Other Provider Active Start: July 21, 2024 Dr. Willian Ovalles , Other Provider Active Star t: July 21, 2024 Team Status: Active Member Role Status Dates Dr. Dex Wilkinson MD Primary Care Provider Active Start: July 22, 2024 Dr. Carlos Nair DO Emergency Provider Active Start: July 22, [...] Active Start: July 22, 2024 Bogdan Bates NETSUITE DEVELOPER, NETSUITE DEVELOPER-C Other Provider Active Start : July 22, [...] July 22, 2024 Dr. Sergio Umaña , Admit Provider Active Start: July 22, 2024 [...] Active Start: July 22, 2024 Bogdan Bates NETSUITE DEVELOPER, NETSUITE DEVELOPER-C Other Provider Active Start : July 22, 2024 Xochitl Bourne PA, PA Other Provider Active Start: July 22, 2024 MARCIO Lemus Other Provider Active Start: July 22, 2024 Dr. Willian Ovalles , Other Provider Active Star t: July 22, 2024 Team Status: Active Member Role Status Dates Dr. Dex Wilkinson MD Primary Care Provider Active Start: July 23, 2024 Dr. Carlos Nair , Emergency Provider Active Start: July 23, 2024 Dr. Sergio Umaña DO Admit Provider Active Start: July 23, 2024 Dr. Sergio Umaña DO Other Provider [...] Active Start: July 23, 2024 Bogdan Bates NETSUITE DEVELOPER, NETSUITE DEVELOPER-C Other Provider Active Start : July 23, [...] Provider Active Start: July 23, 2024 Dr. eSrgio Umaña DO Admit Provider Active Start: July 23, 2024 Dr. Sergio Umaña DO Other Provider [...] Active Start: July 23, 2024 Bogdan Bates NETSUITE DEVELOPER, NETSUITE DEVELOPER-C Other Provider Active Start : July 23, 2024 Xochitl BUCKLEY, PA Other Provider Active Start: July 23, 2024 MARCIO Lemus Other Provider Active Start: July 23, 2024 Dr. Willian Ovalles DO Other Provider Active Star t: July 23, 2024 Team Status: Active Member Role Status Dates Dr. Dex Wilkinson MD Primary Care Provider Active Start: July 24, 2024 Dr. Carlos Nair , Emergency Provider Active Start: July 24, 2024 Dr. Sregio Umaña DO Admit Provider Active Start: July 24, 2024 Dr. Sergio Umaña DO Other Provider Active Start: July 24, [...] Active Start: July 24, 2024 Bogdan Bates NETSUITE DEVELOPER, NETSUITE DEVELOPER-C Other Provider Active Start : July 24, 2024 Xochitl BUCKLEY, PA Other Provider Active Start: July 24, 2024 MARCIO Lemus Other Provider Active Start: July 24, 2024 Dr. Willian Ovalles DO Attending Provider Active Start: July 24, 2024 Dr. Willian Ovalles DO Other Provider Active Star t: July 24, 2024 Craft Demonstrator Relationship Specialty Start Date End Date Dex Wilkinson MD [address] [address] PCP - General 10/19/06 Asuncion Cheung, loom overhauler Coordinator 05/14/14 Craft Demonstrator Relationship Specialty Start Date End Date Dex Wilkinson MD [address] [address] PCP - General 10/19/06 Asuncion Cheung, loom overhauler Coordinator 05/14/14 Craft Demonstrator Relationship Specialty Start Date End Date Dex Wilkinson MD [address] [address] PCP - General 10/19/06 Asuncion Cheung, loom overhauler Coordinator 05/14/14 Team Status: Active Member Role [...] August 08, 2024 End: August 08, 2024 Craft Demonstrator Relationship Specialty Start Date End Date Dex Wilkinson MD [address] [phone] PCP - General Family Medicine 07/01/24 Team [...] August 08, 2024 End: August 08, 2024 Craft Demonstrator Relationship Specialty Start Date End Date Dex Wilkinson MD [address] [place] [phone] PCP - General Family Medicine 08/15/24 Team [...] 11, 2024 Dr. Gage Sharma , DO Attending Provider Activ e Start: August 11, 2024 End: August 11, 2024 Dr. Gage Sharma , DO Emergency Provider Activ e Start: August 11, 2024 End: August 11, 2024 Team Status: Active Member Role Status Dates Dr. Dex Wilkinson MD Primary Care Provider Active Start: August 20, 2024 Dr. Simona Fernandez , Emergency Provider Active Start: August 20, 2024 Dr. Lopez Larios , Admit Provider Active Start: August 20, 2024 Dr. Lopez Larios DO Attending Provider Active Start: August 20, 2024 Craft Demonstrator Relationship Specialty Start Date End Date Dex Wilkinson MD [address] [place] [phone] PCP - General Family Medicine 08/15/24 Team [...] Start: August 22, 2024 Dr. Lopez Larios , DO Admit Provider Active Start: August 22, [...] Active St art: August 20, 2024 Dr. uQang Myles DO Attending Provider Active Start: August [...] August 20, 2024 Dr. Taylor Tejeda MD Referring Provider [...] August 28, 2024 End: August 28, 2024 Team Status: Active Member Role/Relationship Status Dates Dr. Dex Wilkinson MD Primary Care Provider Active Team Status: Inactive Member Role/Relationship Status Dates Dr. Dex Wilkinson MD Primary Care Provider Active Start: July 01, 2024 End: July 01, 2024 Dr. Babar Wood DO Attending Provider Active Start: July 01, 2024 End: July 01, 2024 Dr. Babar Wood DO Emergency Provider Active Start: July 01, 2024 End: July 01, 2024 Team Status: Inactive Member Role/Relationship Status Dates Dr. Dex Wilkinson MD Primary Care Provider Active Start: July 03, 2024 End: July 03, 2024 Dr. Dex Wilkinson MD Referring Provider Active Start: July 03, 2024 End: July 03, 2024 MARCIO Camp Attending Provider Active Start: July 03, 2024 End: July 03, 2024 Team Status: Inactive Member Role/Relationship Status Dates Dr. Dex Wilkinson MD Primary Care Provider Active Start: July 03, 2024 End: July 03, 2024 Dr. Nabor Frey DO Attending Provider Active Start: July 03, 2024 End: July 03, 2024 Dr. Nabor Frey DO Emergency Provider Active Start: July 03, 2024 End: July 03, 2024 Team Status: Inactive Member Role/Relationship Status Dates Dr. Dex Wilkinson MD Primary Care Provider Active Start: July 04, 2024 End: July 04, 2024 Dr. Jose Francisco Santamaria MD Attending Provider Active S tart: July 04, 2024 End: July 04, 2024 Team Status: Inactive Member Role/Relationship Status Dates Dr. Dex Wilkinson MD Primary Care Provider Active Start: July 04, 2024 End: July 04, 2024 Dr. Dex Wilkinson MD Referring Provider Active Start: July 04, 2024 End: July 04, 2024 Dr. Jose Francisco Santamaria MD Attending Provider Active S tart: July 04, 2024 End: July 04, 2024 Team Status: Inactive Member Role/Relationship Status Dates Dr. Dex Wilkinson MD Primary Care Provider Active Start: July 10, 2024 End: July 10, 2024 Dr. Dex Wilkinson MD Referring Provider Active Start: July 10, 2024 End: July 10, 2024 Xochitl Bourne PA, PA Attending Provider Active Start: July 10, 2024 End: July 10, 2024 Team Status: Inactive Member Role/Relationship Status Dates Dr. Dex Wilkinson MD Primary Care Provider Active Start: July 12, 2024 End: July 12, 2024 Dr. Dex Wilkinson MD Referring Provider Active Start: July 12, 2024 End: July 12, 2024 Dr. Quang Myles DO Attending Provider Active Start: July 12, 2024 End: July 12, 2024 Team Status: Active Member Role/Relationship Status Dates Dr. Dex Wilkinson MD Primary Care Provider Active Start: July 12, 2024 Dr. Dex Wilkinson MD Referring Provider Active Start: July 12, 2024 Dr. Quang Myles DO Attending Provider Active Start: July 12, 2024 Dr. Quang Myles DO Other Provider Active St art: July 12, 2024 Team Status: Inactive Member Role/Relationship Status Dates Dr. Dex Wilkinson MD Primary Care Provider Active Start: July 21, 2024 End: July 24, 2024 Dr. Carlos Nair , Emergency Provider Active Start: July 21, 2024 End: July 24, 2024 Dr. Sergio Umaña , Admit Provider Active Start: July 21, 2024 End: July 24, 2024 Dr. Sergio Umaña , [...] 2024 End: July 24, 2024 Bogdan Bates NETSUITE DEVELOPER, NETSUITE DEVELOPER-C Other Provider Active Start : July 21, 2024 End: July 24, 2024 Xochitl Bourne PA, PA Other Provider Active Start: July 21, 2024 End: July 24, 2024 MARCIO Lemus Other Provider Active Start: July 21, 2024 End: July 24, 2024 Dr. Willian Ovalles DO Attending Provider Active Start: July 21, 2024 End: July 24, 2024 Team Status: Active Member Role/Relationship Status Dates Dr. Dex Wilkinson MD Primary [...] Active Start: July 21, 2024 Bogdan Bates NETSUITE DEVELOPER, NETSUITE DEVELOPER-C Other Provider Active Start : July 21, 2024 Xochitl Bourne PA, PA Other Provider Active Start: July 21, 2024 MARCIO Lemus Other Provider Active Start: July 21, 2024 Dr. Willian Ovalles DO Attending Provider Active Start: July 21, 2024 Dr. Willian Ovalles DO Other Provider Active Star t: July 21, 2024 Team Status: Active Member Role/Relationship Status Dates Dr. Dex Wilkinson MD Primary [...] Active Start: July 21, 2024 Bogdan Bates NETSUITE DEVELOPER, NETSUITE DEVELOPER-C Other Provider Active Start : July 21, 2024 Xochitl Bourne PA, PA Other Provider Active Start: July 21, 2024 MARCIO Lemus Other Provider Active Start: July 21, 2024 Dr. Willian Ovalles , Other Provider Active Star t: July 21, 2024 Team Status: Active Member Role/Relationship Status Dates Dr. Dex Wilkinson MD Primary Care Provider Active Start: July 22, 2024 Dr. Carlos Nair DO Emergency Provider Active Start: July 22, [...] Active Start: July 22, 2024 Bogdan Bates NETSUITE DEVELOPER, NETSUITE DEVELOPER-C Other Provider Active Start : July 22, 2024 Xochitl Bourne PA, PA Other Provider Active Start: July 22, 2024 MARCIO Lemus Other Provider Active Start: July 22, 2024 Dr. Willian Ovalles DO Attending Provider Active Start: July 22, 2024 Dr. Willian Ovalles DO Other Provider Active Star t: July 22, 2024 Team Status: Active Member Role/Relationship Status Dates Dr. Dex Wilkinson MD Primary Care Provider Active Start: July 22, 2024 Dr. Carlos Nair DO Emergency Provider Active Start: July 22, [...] Active Start: July 22, 2024 Bogdan Bates NETSUITE DEVELOPER, NETSUITE DEVELOPER-C Other Provider Active Start : July 22, 2024 Xochitl Bourne PA, PA Other Provider Active Start: July 22, 2024 MARCIO Lemus Other Provider Active Start: July 22, 2024 Dr. Willian Ovalles , DO Other Provider Active Star t: July 22, 2024 Team Status: Active Member Role/Relationship Status Dates Dr. Dex Wilkinson MD Primary Care Provider Active Start: July 23, 2024 Dr. Carlos Nair , Emergency Provider Active Start: July 23, 2024 Dr. Sergio Umaña , Admit Provider Active Start: July 23, 2024 Dr. Sergio Umaña DO Other Provider [...] Active Star t: July 23, 2024 Dr. eMrcy Bishop MD Other Provider Active St art: July 23, 2024 Dr. Sarita Flores MD Other Provider Active Start: July 23, 2024 Dr. Vincent Hdz MD Other Provider Active S tart: July 23, 2024 Dr. Cliff Car MD Other Provider Active Start: July 23, 2024 Bogdan Bates NETSUITE DEVELOPER, NETSUITE DEVELOPER-C Other Provider Active Start : July 23, 2024 Xochitl BUCKLEY, PA Other Provider Active Start: July 23, 2024 MARCIO Lemus Other Provider Active Start: July 23, 2024 Dr. Willian Ovalles DO Attending Provider Active Start: July 23, 2024 Dr. Willian Ovalles DO Other Provider Active Star t: July 23, 2024 Team Status: Active Member Role/Relationship Status Dates Dr. Dex Wilkinson MD Primary Care Provider Active Start: July 23, 2024 Dr. Willian Colón MD Attending Provider Active S tart: July 23, 2024 Dr. Sergio de Koby , DO Referring Provider Active Start: July 23, 2024 Team Status: Active Member Role/Relationship Status Dates Dr. Dex Wilkinson MD Primary Care Provider Active Start: July 23, 2024 Dr. Carlos Nair , DO Emergency Provider Active Start: July 23, 2024 Dr. Sergio Umaña , DO Admit Provider Active Start: July 23, 2024 Dr. Sergio Umaña DO Other Provider [...] Active Start: July 23, 2024 Bogdan Bates NETSUITE DEVELOPER, NETSUITE DEVELOPER-C Other Provider Active Start : July 23, 2024 Xochitl Bourne PA, PA Other Provider Active Start: July 23, 2024 MARCIO Lemus Other Provider Active Start: July 23, 2024 Dr. Willian Ovalles , Other Provider Active Star t: July 23, 2024 Team Status: Active Member Role/Relationship Status Dates Dr. Dex Wilkinson MD Primary Care Provider Active Start: July 24, 2024 Dr. Carlos Nair DO Emergency Provider Active Start: July 24, 2024 [...] Active Start: July 24, 2024 Bogdan Bates NETSUITE DEVELOPER, NETSUITE DEVELOPER-C Other Provider Active Start : July 24, 2024 Xohcitl Bourne PA, PA Other Provider Active Start: July 24, 2024 MARCIO Lemus Other Provider Active Start: July 24, 2024 Dr. Willian Ovalles DO Attending Provider Active Start: July 24, 2024 Dr. Willian Ovalles DO Other Provider Active Star t: July 24, 2024 Team Status: Inactive Member Role/Relationship Status Dates Dr. Dex Wilkinson MD Primary Care Provider Active Start: August 08, 2024 End: August 08, 2024 Dr. Dex Wilkinson MD Referring Provider Active Start: August 08, 2024 End: August 08, 2024 Dr. Quang Myles DO Attending Provider Active Start: August 08, 2024 End: August 08, 2024 Team Status: Inactive Member Role/Relationship Status Dates Dr. Dex Wilkinson MD Primary Care Provider Active Start: August 08, 2024 End: August 08, 2024 Dr. Quang Myles DO Attending Provider Active Start: August 08, 2024 End: August 08, 2024 Dr. Quang Myles DO Referring Provider Active Start: August 08, 2024 End: August 08, 2024 Team Status: Inactive Member Role/Relationship Status Dates Dr. Dex Wilkinson MD Primary Care Provider Active Start: August 09, 2024 End: August 09, 2024 Dr. Quang Myles DO Attending Provider Active Start: August 09, 2024 End: August 09, 2024 Dr. Quang Myles DO Referring Provider Active Start: August 09, 2024 End: August 09, 2024 Team Status: Inactive Member Role/Relationship Status Dates Dr. Dex Wilkinson MD Primary Care Provider Active Start: August 11, 2024 End: August 11, 2024 Dr. Gage Sharma DO Attending Provider Activ e Start: August 11, 2024 End: August 11, 2024 Dr. Gage Sharma DO Emergency Provider Activ e Start: August 11, 2024 End: August 11, 2024 Team Status: Inactive Member Role/Relationship Status Dates Dr. Dex Wilkinson MD Primary [...] August 24, 2024 Team Status: Active Member Role/Relationship Status Dates Dr. Dex Wilkinson MD Primary Care Provider Active Start: August 20, 2024 Dr. Simona Fernandez DO Emergency Provider Active Start: August 20, 2024 Dr. Lopez Larios DO Admit Provider Active Start: August 20, 2024 Dr. Lopez Larios DO Other Provider Active Start: August 20, 2024 Dr. Taylor Tejeda MD Referring Provider Active Start: August 20, 2024 Dr. Taylor Tejeda MD Other Provider Active St art: August 20, 2024 Dr. Quang Myles DO Attending Provider Active Start: August 20, 2024 Team Status: Active Member Role/Relationship Status Dates Dr. Dex Wilkinson MD Primary [...] August 21, 2024 Team Status: Active Member Role/Relationship Status Dates Dr. Dex Wilkinson MD Primary [...] August 21, 2024 Team Status: Active Member Role/Relationship Status Dates Dr. Dex Wilkinson MD Primary [...] August 22, 2024 Team Status: Active Member Role/Relationship Status Dates Dr. Dex Wilkinson MD Primary [...] August 23, 2024 Team Status: Active Member Role/Relationship Status Dates Dr. Dex Wilkinson MD Primary Care Provider Active Start: August 23, 2024 Dr. Simona Fernandez DO Emergency Provider Active Start: August 23, 2024 Dr. Lopez Larios DO Admit Provider Active Start: August 23, 2024 Dr. Lopez Larios DO Other Provider Active Start: August 23, 2024 Dr. Taylor Tejeda MD Referring Provider Active Start: August 23, 2024 Dr. Taylor Tejeda MD Other Provider Active St art: August 23, 2024 Dr. Quang Myles DO Attending Provider Active Start: August 23, 2024 Team Status: Active Member Role/Relationship Status Dates Dr. Dex Wilkinson MD Primary [...] August 24, 2024 Team Status: Inactive Member Role/Relationship Status Dates Dr. Dex Wilkinson MD Primary Care Provider Active Start: August 27, 2024 End: August 27, 2024 Dr. Quang Myles DO Attending Provider Active Start: August 27, 2024 End: August 27, 2024 Dr. Quang Myles DO Referring Provider Active Start: August 27, 2024 End: August 27, 2024 Team Status: Inactive Member Role/Relationship Status Dates Dr. Dex Wilkinson MD Primary Care Provider Active Start: August 28, 2024 End: August 28, 2024 Dr. Quang Myles DO Attending Provider Active Start: August 28, 2024 End: August 28, 2024 Dr. Quang Myles DO Referring Provider Active Start: August 28, 2024 End: August 28, 2024 Team Status: Active Member Role/Relationship Status Dates Dr. Dex Wilkinson MD Primary Care Provider Active Start: September 11, 2024 Dr. Gage Sharma DO Emergency Provider Activ e Start: September 11, 2024 Dr. Sergio Umaña , DO Admit Provider Active Start: September 11, 2024 Dr. Sergio Umaña , DO Attending Provider Active Start: September 11, 2024 Reason for Visit (unrecogniz ed section and content) Reason Onset Date Comments Shortness of Breath 07/04/2023 Reason Onset Date Comments Abdominal Pain 07/01/2024 Reason Comments Spirometry Specialty Diagnoses / Procedures Referred By Annalisa t Referred To Contact [facility] IN[facility] Diagnoses Endocarditis Procedures na [id number] [phone] Phone: tel: Referral ID Status Reason Start Date Expiration Date Visits Re quested Visits Authorized [id number] 1 Reason Onset Date Comments Transition [...] or prosecute any alcohol or drug abuse patient.[facility] the event this information is protected by the Federal Confidentiality of Alcohol and Drug Abuse Patient Records regulations: The Federal rules restrict any use of the information to criminally investigate or prosecute any alcohol or drug abuse patient.[facility] the event this information is protected by the Federal Confidentiality of Alcohol and Drug Abuse Patient Records regulations: The Federal rules restrict any use of the information to criminally investigate or prosecute any alcohol or drug abuse patient.[facility] the event this information is protected by the Federal Confidentiality of Alcohol and Drug Abuse Patient Records regulations: The Federal rules restrict any use of the information to criminally investigate or prosecute any alcohol or drug abuse patient.[facility] FOR RECORDS PERTAINING TO PATIENTS WHO ARE [...] BE BASED ON THE PRIMARY CLINICAL RECORDS. [employer] [facility]. provides no warranty or guarantee of the accuracy or completeness of information in this document.
[2024-09-12 00:48] LABS: Magnesium 1.8 mg/dL (1.5-2.2)
[2024-09-12] MEDS: 0.9% Normal Saline (1000mL) 1,000 ML 150 ML IV ×2 (01:35→08:31)
[2024-09-12] MEDS: Pantoprazole Sodium 40 MG in 0.9% Normal Saline (100mL MB+) 100 ML 300 MG IV (01:36)
[2024-09-12] MEDS: 0.9% Saline Lock 10 ML Syringe IV ×4 (01:36→22:59)
[2024-09-12 06:03] LABS: Hematocrit 42.4 % (37-47); Hemoglobin 13.5 g/dL (12.0-15.0); Immature Granulocytes Count 0.090 X10^3/uL (0.0-0.0); Mean Corp Hgb Conc 31.8 g/dL (32-36); Mean Corpuscular Volume 97.0 fL (81-99); Mean Platelet Vol. 10.4 fl (6.2-12.0); NRBC Flagged by Analyzer 0 % (0-5); POSITIVE DIFFERENTIAL YES; Platelet Count 309 K/mm3 (150-450); RBC Distribution Width CV 14.6 % (11.6-14.6); RBC Distribution Width SD 51.8 fl (35.1-43.9); Red Blood Count 4.37 M/mm3 (4.2-5.4); White Blood Count 18.7 K/mm3 (4.4-11.0)
[2024-09-12 07:15] LABS: AST(SGOT) 28 U/L (<=31); Alanine Aminotransfer ALT/SGPT 19 U/L (<=34); Albumin, Serum 4.2 g/dL (3.5-5.0); Alkaline Phosphatase 146 U/L (35-104); Anion Gap 15 (5-15); BUN 16 mg/dL (4-19); BUN/Creat Ratio 21.9 RATIO (10-20); Calcium,Total 9.0 mg/dL (7.6-11.0); Carbon Dioxide 15.3 mmol/L (21.0-32.0); Chloride 104 mmol/L (98-108); Estimated Creatinine Clearance 83.77 ml/min (50-250); Globulin 2.8 g/dL (2.2-4.2); Glucose 123 mg/dL (70-99); Lipase 50 U/L (13-75); Potassium 4.8 mmol/L (3.3-5.1)
[2024-09-12] MEDS: Metoprolol(XL)Succ 25 MG Tablet PO (08:29)
--- NOTE | 2024-09-12 09:58 | PN.HOSP_ITS ---
Reason for Visit Reason for Visit: Diagnoses Elevated white blood cell count, unspecified (09/11/24) Other chronic pain (09/11/24) Unspecified abdominal pain (09/11/24) Abnormal levels of other serum enzymes (09/11/24) Other specified postprocedural states (09/11/24) Objective Data Objective Data Vital Signs: Vital Signs Temp Pulse Resp BP Pulse Ox O2 Del Method 97.3 F L 77 20 H 126/103 H 100 Room Air 09/12/24 08:18 09/12/24 08:29 09/12/24 08:18 09/12/24 08:18 09/12/24 08:18 09/12/24 08:18 Oxygen Delivery Method Room Air Weight: 126 lb 8.725 oz Body Mass Index (BMI) 21.7 Intake & Output: Intake and Output for Last 24 Hours 09/10/24 09/11/24 09/12/24 23:59 23:59 23:59 Intake Total 1000 / 1000 1740 / 1740 Balance 1000 / 1000 1740 / 1740 Lab / Micro Data 09/12/24 05:36 09/12/24 05:36 Labs: Laboratory Results - last 24 hr 09/11/24 19:39: WBC 14.8 H, RBC 4.60, Hgb 14.1, Hct 43.2, MCV 93.9, MCH 30.7, MCHC 32.6, RDW Std Deviation 49.7 H, RDW Coeff of Damon 14.5, Plt Count 338, MPV 11.1, Immature Gran % (Auto) 0.500, Neut % (Auto) 94.8 H, Lymph % (Auto) 3.5 L, [place] % (Auto) 0.7, Eos % (Auto) 0.1, Baso % (Auto) 0.4, Absolute Neuts (auto) 14.0 H, Absolute Lymphs (auto) 0.51 L, Nucleated RBC % 0, Sodium 137, Potassium 4.2, Chloride 104, Carbon Dioxide 18.9 L, Anion Gap 14, BUN 17, Creatinine 0.84, Estim Creat Clear Calc 73.80, Est GFR (MDRD) Non-Af 88, BUN/Creatinine Ratio 20.4 H, Glucose 107 H, Calcium 9.7, Total Bilirubin 0.87, AST 27, ALT 24, A lkaline Phosphatase 164 H, Total Protein 7.5, Albumin 4.4, Globulin 3.1, Albumin/Globulin Ratio 1.4, Lipase 112 H 09/11/24 21:30: Urine Color Yellow, Urine Clarity Sl. Cloudy, Urine pH 7.0, Ur Specific [place] 1.010, Urine Protein 100 H, Urine Glucose (UA) Normal, Urine Ketones Negative, Urine Occult Blood 50 H, Urine Nitrite Negative, Urine Bilirubin Negative, Urine Urobilinogen 1 H, Ur Leukocyte Esterase Negative, Urine RBC 0-5 SEEN, Urine WBC 0-5 SEEN, Ur Squamous Epith Cells 10-25 SEEN, Urine Bacteria 0 SEEN, Urine Mucus 0 SEEN 09/11/24 22:00: WBC 13.7 H, RBC 4.45, Hgb 13.8, Hct 42.0, MCV 94.4, MCH 31.0, MCHC 32.9, RDW Std Deviation 49.9 H, RDW Coeff of [place]on 14.6, Plt Count 349, MPV 10.2, Immature Gran % (Auto) 0.600, Neut % (Auto) 94.7 H, Lymph % (Auto) 3.6 L, [place] % (Auto) 0.7, Eos % (Auto) 0.1, Baso % (Auto) 0.3, Absolute Neuts (auto) 13.0 H, Absolute Lymphs (auto) 0.49 L, Nucleated RBC % 0, Sodium 138, Potassium 4.1, Chloride 105, Carbon Dioxide 17.8 L, Anion Gap 15, BUN 19, Creatinine 0.77, Estim Creat Clear Calc 80.51, Est GFR (MDRD) Non-Af 97, BUN/Creatinine Ratio 24.2 H, Glucose 132 H, Lactic Acid 1.6, Calcium 9.4, Magnesium 1.8, Total Bilirubin 0.97, Direct Bilirubin 0.50 H, AST 23, ALT 17, Alkaline Phosphatase 163 H, Total Protein 7.4, Albumin 4.4, Globulin 3.0, Lipase 113 H, Serum , Qual NEGATIVE 09/12/24 05:36: WBC 18.7 H, RBC 4.37, Hgb 13.5, Hct 42.4, MCV 97.0, MCH 30.9, M CHC 31.8 L, RDW Std Deviation 51.8 H, RDW Coeff of Damon 14.6, Plt Count 309, MPV 10.4, Immature Gran % (Auto) 0.500, Neut % (Auto) 94.8 H, Lymph % (Auto) 2.8 L, [place] % (Auto) 1.7, Eos % (Auto) 0.0, Baso % (Auto) 0.2, Absolute Neuts (auto) 17.7 H, Absolute Lymphs (auto) 0.53 L, Nucleated RBC % 0, Sodium 135, Potassium 4.8, Chloride 104, Carbon Dioxide 15.3 L, Anion Gap 15, BUN 16, Creatinine 0.74, Estim Creat Clear Calc 83.77, Est GFR (MDRD) Non-Af 102, BUN/Creatinine Ratio 21.9 H, Glucose 123 H, Calcium 9.0, Phosphorus 3.7, Total Bilirubin 1.02, AST 28, ALT 19, Alkaline Phosphatase 146 H, Total Protein 7.0, Albumin 4.2, Globulin 2.8, Albumin/Globulin Ratio 1.5, Lipase 50, TSH 1.410 Radiography Diagnostic Testing: Radiology Impression Abdomen/Pelvis CT 09/11/24 22:28 IMPRESSION: Medical liver disease. Correlate for possible hepatitis. Reading Location: [place] [id number] Physical Exam Narrative Seen and examined Patient denies any fever or chills. Vitals in normal range. Complain of epigastric abdominal pain which is acute on chronic. Denies prior history of acute or chronic pancreatitis, had cholecystectomy. She had ERCP and stent in pancreatic and bile duct. Personal and family history of HOCM status post defibrillator. She stated OCOM more prevalent in female than male in her family. In the past had 1 shock due to lead malfunction but not from cardiac arrest. Physical exam General: Alert, Oriented x3, Cooperative. BMI 21.7 kg/m² HEENT: Atraumatic, PERRLA, EOMI, Normocephalic. Oral: No Gingival or Mucosal Lesions/ Ulcerations Neck: Supple, No JVD, Negative Carotid Bruits Chest wall/Lungs: Air entry diminished in bilateral lung bases. No crepitation/rhonchi Cardiovascular: Regular rate and rhythm, Normal S1,S2, No M/G/R Abdomen: Tenderness present on epigastrium/RUQ. Bowel Sounds Present, Soft, nondistended : No dysuria. No renal angle tenderness. No suprapubic tenderness. Extremities: No edema, Capillary Refill Less than 3 Seconds Skin: No rashes, No breakdown Musculoskeletal: No Tenderness to Palpation of Joints or Extremities Neurological: Cranial nerves II-XII grossly intact, DTR 2+/4. No acute focal neurological deficit. Psych/Mental Status: Normal Affect, Appropriate. Assessment & Plan Assessment/Plan (1) Intractable abdominal pain: (2) Chronic abdominal pain: (3) History of celiac plexus block: (4) Elevated lipase: (5) Leukocytosis: QUALIFIERS: Leukocytosis type: unspecified Qualified Code(s): D 72.829 - Elevated white blood cell count, unspecified (6) History of biliary stent insertion: (7) History of insertion of pancreatic stent: PLAN: Plan 43-year-old female admitted with RUQ/epigastric pain, back pain and generalized allover pain. Dr. Dennison has performed celiac block due to pain but that did not improve the pain. No fever or chills. 1. Intractable [id number] abdominal pain after recent failed celiac plexus block - Admit to general medical floor under observation status. GI consulted. Change PPI IV pantoprazole once daily. Exact etiology of pain not clear. 2. Mildly elevated lipase of 113 U/L present on admission - Doubt acute pancreatitis. Leukocytosis 13.7, probably inflammatory to she denies prior history of acute or chronic pancreatitis. Keep n.p.o. except medications and ice chips with sips and hydrate with NS at 150 cc/h x 2L. Repeat lipase tomorrow a.m. 3. History of biliary stent and pancreatic stent with chronic abdominal pain status post recent celiac plexus block procedure: She had ERCP 08/21/2024 which showed single localized biliary stricture in the lower third of CBD. Mid dilatation of pancreatic duct in the genu of PD and pancreatic duct stricture. Choledocholithiasis found and complete removal accomplished by balloon extraction and sphincterotomy. Single pancreatic stone found. Biliary tree was swept. Cells for cytology obtained, 1 temporary stent into CBD and 1 temporary stent in ventral pancreatic duct. Cells brushing reported no malignant cells. . 4. Recent admission here from July 20, 2024 to July 24, 2024 for treatment of AE CHF with elevated NT pro-BNP II of 6,468 pg/mL present on admission with corresponding CT evidence of pulmonary vascular congestion complicated by mildly elevated troponin and leukocytosis of 14.3 K with left shift of 1% due to possible superimposed pneumonia - Noted. 5. HOCM status post AICD with family history: Chronic history of dyspnea on exertion, stated had to stop twice on climbing 1 flight of stair but no significant problem on walking 500 feet on level ground. 6. Multiple other comorbidities which include chronic intermittent asthma, migraine headache, generalized anxiety and insomnia: Home medication decussation done. 7. DVT prophylaxis - Enoxaparin 40 mg sq daily plus SCD's. Charges/Coding Visit Charges Inpatient E&M: 27965 Subs Hosp L2
--- NOTE | 2024-09-12 18:34 | EX.PCM.CON.G ---
HPI Consult Data Date of Consult: 09/12/24 HPI Narrative HPI Narrative: SANDRA GARDNER, is a 43 yo female pt here today for evaluation of abdominal pain x3 days. She is known to the GI service. She recently underwent a celiac plexus block that the patient says was unsuccessful for chronic abdominal pain. I initially saw her when she presented to the ED 07.01.24 with complaints of abd pain and underwent CT which showed thickening in the colon concerning for IBD. Pt pain has continued to increase since the ED. She endorsed constipation, diffuse abd pain, nausea and vomiting. She will undergo EGD and colonoscopy for assessment of her lower and upper GI tract. She also was recently in the hospital for paroxysmal nocturnal dyspnea. Patient has a history of familial hypertrophic cardiomyopathy. She also has a personal history of hypertrophic cardiomyopathy and has had a AICD for multiple years. I saw in a hospital consultation for abdominal pain and bloating. Her repeat ejection fraction went from 50% down to 35%. Also her pulmonary pressures went up from 58-77. She was transferred to outside facility. They controlled her with medical therapy after getting her BNP down from 60 400-100. She still having a lot of abdominal pain. I had drawn some liver test and she has biochemical evidence of cholestatic hepatitis. Her CT scan did show hepatomegaly which was thought to be secondary to heart failure but it also did show a double duct sign. I have ordered an MRCP but she has an AICD so I am awaiting possible clearance by radiology so she can get MRCP. If that is not possible then she may need an ERCP to evaluate her for postcholecystectomy sphincter of Oddi syndrome, choledocholithiasis, ampullary lesion. She was not able to get her outpatient MRCP and presented back to the emergency room today. Her liver enzymes are showing a more cholestatic pattern. She had an ultrasound that showed dilated pancreatic duct to 6.4 mm with a 6 mm common bile duct. No obvious stones or lesions were seen. However her LFTs continue to rise. She underwent ERCP with stone removal out of the common bile duct, stricture dilation involving the ampulla and distal common bile duct and dilation of the pancreatic duct was seen. Currently she is in a lot abdominal pain. She got a CT scan abdomen pelvis that did not show any acute abnormality. In the ED her lipase was slightly elevated but has come back down with fluid administration. [facility] Medical History Dilated pancreatic duct Abdominal pain Hypertension Severe pulmonary hypertension History of hypertrophic cardiomyopathy Acute systolic congestive heart failure, NYHA class 3 Leukocytosis Cancer History of steroid therapy Easy bruising Migraine headache History of hiatal hernia History of ulceration History of IBS Abdominal bloating Stomach pain Nausea & vomiting Shortness of breath on exertion Smoker History of echocardiogram Chest pain Pulmonary embolism Endometrial cancer Cervical cancer shelter current use of 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 Ovarian cancer GERD (gastroesophageal reflux disease) Insomnia Anxiety Collapsed lung History of blood clots Asthma Breast cancer Pacemaker ICD (implantable cardioverter-defibrillator) in place Hypertrophic cardiomyopathy Home Medications Medication Instructions Recorded Last Taken Type alprazolam 0.5 mg tablet 0.5 mg PO BID ANXIETY 11/13/21 09/11/24 History zolpidem 10 mg tablet 10 mg PO QHS SLEEP 11/13/21 09/10/24 History sucralfate 1 gram tablet (Carafate) 1 g PO BIDCM GERD 07/10/24 09/10/24 History metoprolol succinate 25 mg 25 mg PO QDAY HEART 08/08/24 09/10/24 History tablet,extended release 24 hr pantoprazole 40 mg tablet,delayed 40 mg PO BID GERD 08/11/24 09/10/24 History release spironolactone 25 mg tablet 25 mg PO DAILY WATER PILL 08/20/24 09/10/24 History Allergy/AdvReac Type Severity Reaction Status Date / Time morphine Allergy Mild Hives Verified 09/11/24 17:21 codeine Allergy Hives Verified 09/11/24 17:21 erythromycin base Allergy PT UNSURE Verified 09/11/24 17:21 OF REACTION Fish Containing Products Allergy Other Verified 09/11/24 17:21 levofloxacin Allergy PT UNSURE Verified 09/11/24 17:21 OF REACTION shellfish derived Allergy Other Verified 09/11/24 17:21 tramadol Allergy Hives Verified 09/11/24 17:21 trimethobenzamide (From Allergy Other Verified 09/11/24 17:21 Tigan) gabapentin (From Neurontin) AdvReac Severe Anaphylaxis Verified 09/11/24 17:21 acetaminophen (From Vicodin) AdvReac Other Verified 09/11/24 17:21 hydrocodone (From Vicodin) AdvReac Other Verified 09/11/24 17:21 metoclopramide (From Reglan) AdvReac Other Verified 09/11/24 17:21 Family History Father Heart disease Idiopathic hypertrophic subaortic stenosis, hypertrophic obstructive cardiomyopathy, congestive heart failure Mother Breast cancer DVT (deep venous thrombosis) Sister Hypertrophic obstructive cardiomyopathy heart transplant at age 34 Cancer Brain, breast, and colon Grandfather Heart disease at age 45 Grandmother CVA (cerebral vascular accident) age 43 Surgical History Presence of implantable cardioverter-defibrillator (ICD) History of cardiac catheterization History of oophorectomy History of cervical polypectomy History of colonoscopy History of tubal ligation History of mastectomy History of cholecystectomy Hx of appendectomy Social History household members: spouse and family housing: house current occupational status: employed Smoking Status: Current every day smoker tobacco type: cigarettes how long ago did patient quit smokin months ago alcohol intake: former substance use type: does not use caffeine: Yes ROS Constitutional Constitutional: Denies fatigue, fever(s), poor appetite, weight gain or weight loss Gastrointestinal Gastrointestinal: Denies belching, bloating, change in bowel habits, change in stool character, chewing difficulty, coffee ground emesis, constipation, cramping, diarrhea, dyspepsia, dysphagia, early satiety, excessive flatus, fecal incontinence, heartburn, hematemesis, hematochezia, hemorrhoids, loose stools, melena, nausea, odynophagia, rectal bleeding, tenesmus, vomiting or weight changes Lab / Micro Data 09/12/24 05:36 09/12/24 05:36 Labs: Laboratory Results - last 24 hr 09/11/24 19:39: WBC 14.8 H, RBC 4.60, Hgb 14.1, Hct 43.2, MCV 93.9, MCH 30.7, MCHC 32.6, RDW Std Deviation 49.7 H, RDW Coeff of Damon 14.5, Plt Count 338, MPV 11.1, Immature Gran % (Auto) 0.500, Neut % (Auto) 94.8 H, Lymph % (Auto) 3.5 L, [place] % (Auto) 0.7, Eos % (Auto) 0.1, Baso % (Auto) 0.4, Absolute Neuts (auto) 14.0 H, Absolute Lymphs (auto) 0.51 L, Nucleated RBC % 0, Sodium 137, Potassium 4.2, Chloride 104, Carbon Dioxide 18.9 L, Anion Gap 14, BUN 17, Creatinine 0.84, Estim Creat Clear Calc 73.80, Est GFR (MDRD) Non-Af 88, BUN/Creatinine Ratio 20.4 H, Glucose 107 H, Calcium 9.7, Total Bilirubin 0.87, AST 27, ALT 24, Alkaline Phosphatase 164 H, Total Protein 7.5, Albumin 4.4, Globulin 3.1, Albumin/Globulin Ratio 1.4, Lipase 112 H 09/11/24 21:30: Urine Color Yellow, Urine Clarity Sl. Cloudy, Urine pH 7.0, Ur Specific [place] 1.010, Urine Protein 100 H, Urine Glucose (UA) Normal, Urine Ketones Negative, Urine Occult Blood 50 H, Urine Nitrite Negative, Urine Bilirubin Negative, Urine Urobilinogen 1 H, Ur Leukocyte Esterase Negative, Urine RBC 0-5 SEEN, Urine WBC 0-5 SEEN, Ur Squamous Epith Cells 10-25 SEEN, Urine Bacteria 0 SEEN, Urine Mucus 0 SEEN 09/11/24 22:00: WBC 13.7 H, RBC 4.45, Hgb 13.8, Hct 42.0, MCV 94.4, MCH 31.0, MCHC 32.9, RDW Std Deviation 49.9 H, RDW Coeff of Damon 14.6, Plt Count 349, MPV 10.2, Immature Gran % (Auto) 0.600, Neut % (Auto) 94.7 H, Lymph % (Auto) 3.6 L, [place] % (Auto) 0.7, Eos % (Auto) 0.1, Baso % (Auto) 0.3, Absolute Neuts (auto) 13.0 H, Absolute Lymphs (auto) 0.49 L, Nucleated RBC % 0, Sodium 138, Potassium 4.1, Chloride 105, Carbon Dioxide 17.8 L, Anion Gap 15, BUN 19, Creatinine 0.77, Estim Creat Clear Calc 80.51, Est GFR (MDRD) Non-Af 97, BUN/Creatinine Ratio 24.2 H, Glucose 132 H, Lactic Acid 1.6, Calcium 9.4, Magnesium 1.8, Total Bilirubin 0.97, Direct Bilirubin 0.50 H, AST 23, ALT 17, Alkaline Phosphatase 163 H, Total Protein 7.4, Albumin 4.4, Globulin 3.0, Lipase 113 H, Serum , Qual NEGATIVE 09/12/24 05:36: WBC 18.7 H, RBC 4.37, Hgb 13.5, Hct 42.4, MCV 97.0, MCH 30.9, MCHC 31.8 L, RDW Std Deviation 51.8 H, RDW Coeff of Damon 14.6, Plt Count 309, MPV 10.4, Immature Gran % (Auto) 0.500, Neut % (Auto) 94.8 H, Lymph % (Auto) 2.8 L, [place] % (Auto) 1.7, Eos % (Auto) 0.0, Baso % (Auto) 0.2, Absolute Neuts (auto) 17.7 H, Absolute Lymphs (auto) 0.53 L, Nucleated RBC % 0, Sodium 135, Potassium 4.8, Chloride 104, Carbon Dioxide 15.3 L, Anion Gap 15, BUN 16, Creatinine 0.74, Estim Creat Clear Calc 83.77, Est GFR (MDRD) Non-Af 102, BUN/Creatinine Ratio 21.9 H, Glucose 123 H, Calcium 9.0, Phosphorus 3.7, Total Bilirubin 1.02, AST 28, ALT 19, Alkaline Phosphatase 146 H, Total Protein 7.0, Albumin 4.2, Globulin 2.8, Albumin/Globulin Ratio 1.5, Lipase 50, TSH 1.410 Imaging Radiology Impression Abdomen/Pelvis CT 09/11/24 22:28 IMPRESSION: Medical liver disease. Correlate for possible hepatitis. Reading Location: [place] [id number] Assessment & Plan Assessment/Plan (1) Intractable abdominal pain: (2) Chronic abdominal pain: (3) History of celiac plexus block: (4) Elevated lipase: (5) Leukocytosis: QUALIFIERS: Leukocytosis type: unspecified Qualified Code(s): D72.829 - Elevated white blood cell count, unspecified (6) History of biliary stent insertion: (7) History of insertion of pancreatic stent: PLAN: Plan 43-year-old female admitted with RUQ/epigastric pain, back pain and generalized allover pain. She is status post celiac plexus block. 1. Abdominal pain of unknown etiology at this time. I will get a CT scan abdomen pelvis with oral and IV contrast. Continue PPI drip for now. I will also put her on a fentanyl patch to hopefully lessen the requirement for some pain medicine 2. Mildly elevated lipase of 113 U/L present on admission no sign of pancreatitis on imaging. 3. There were no malignant cells seen in the biliary stricture. She will need to have repeat ERCP in the future to remove her pancreatic and biliary stents. Charges/Coding Visit Charges Inpatient E&M: 77362 Init Hosp L3
--- NOTE | 2024-09-12 19:58 | CT_ITS ---
PROCEDURE: CT ABD/PELVIS W/WO CONTRAST 09/12/2024 REASON FOR EXAM: ABDOMINAL PAIN TECHNIQUE: CT ABD/PELVIS W/WO CONTRAST Coronal and Sagittal reconstruction series were provided. CONTRAST: Isovue-300 VOLUME: 98 mL Oral contrast was also administered. One or more dose reduction techniques were used (e.g., Automated exposure control, adjustment of the mA and/or kV according to patient size, use of iterative reconstruction technique. RADIATION DOSE SUMMARY: CTDlvol: 29.9 mGy DLP: 891 mGycm COMPARISON: CT abdomen and pelvis on 09/11/2024 and 08/23/2024, MRCP on 09/27/2019 FINDINGS: Lung bases: Unchanged cardiomegaly. Pacemaker lead partially imaged. Bibasilar atelectasis. Liver: Mildly enlarged measuring 19.1 cm in craniocaudal dimension. No discrete lesion. There is heterogeneous enhancement on the portal venous phase, similar to priors. Bile ducts: There is a stent with flaps in the common bile duct which is in similar positioning to the CT on 09/11/2024, with tip near the ampulla Vater. Trace pneumobilia in the left hepatic lobe, also unchanged. Gallbladder: Surgically absent. Spleen: Normal size. Pancreas: Stent with flaps in the main pancreatic duct and extending into the duodenum, unchanged. Adrenals: Unremarkable Kidneys: No hydronephrosis or stone. Bladder: Unremarkable Reproductive Organs: Unremarkable Bowel: Prominent distention of the stomach. No obstruction or inflammation. Surgically absent appendix. Lymph nodes: No significant lymphadenopathy. Vasculature: Mild aortic atherosclerosis. Peritoneum / Retroperitoneum: Trace perihepatic ascites, unchanged. Small volume of pelvic free fluid. Bones: Mild leftward curvature of the lumbar spine. Soft tissues: Mild anasarca. CT/CT Abd/Pelvis W/WO Contrast IMPRESSION: 1. No significant interval change. The biliary and pancreatic stents are in u nchanged position, and there is trace left pneumobilia which is also unchanged. 2. Heterogeneous enhancement of the mildly enlarged liver, without discrete le dia. Differential again includes hepatitis, hepatic fibrosis, or transient hepatic attenuation differences (GIL), amongst other etiologies. Correlate with laboratory analysis. 3. Trace perihepatic ascites and small volume of pelvic free fluid. Reading Location: [id number]
[2024-09-13] VITALS (8 sets, daily range): BP systolic 102–129; BP diastolic 66–96; PULSE 58–65; RESP 16–20; TEMP 36.3–36.6; O2SAT 97–100; BMI 22.4
[2024-09-13] MEDS: 0.9% Saline Lock 10 ML Syringe IV ×4 (03:06→21:10)
[2024-09-13 05:37] LABS: Hematocrit 41.1 % (37-47); Hemoglobin 12.7 g/dL (12.0-15.0); Immature Granulocytes Count 0.180 X10^3/uL (0.0-0.0); Mean Corp Hgb Conc 30.9 g/dL (32-36); Mean Corpuscular Volume 99.3 fL (81-99); Mean Platelet Vol. 10.5 fl (6.2-12.0); NRBC Flagged by Analyzer 0 % (0-5); Platelet Count 359 K/mm3 (150-450); RBC Distribution Width CV 14.5 % (11.6-14.6); RBC Distribution Width SD 52.7 fl (35.1-43.9); Red Blood Count 4.14 M/mm3 (4.2-5.4); White Blood Count 19.2 K/mm3 (4.4-11.0)
[2024-09-13 06:06] LABS: AST(SGOT) 34 U/L (<=31); Alanine Aminotransfer ALT/SGPT 28 U/L (<=34); Albumin, Serum 4.5 g/dL (3.5-5.0); Alkaline Phosphatase 146 U/L (35-104); Anion Gap 15 (5-15); BUN 19 mg/dL (4-19); BUN/Creat Ratio 21.6 RATIO (10-20); Bilirubin, Direct 0.41 mg/dL (0.00-0.30); Calcium,Total 9.7 mg/dL (7.6-11.0); Carbon Dioxide 17.5 mmol/L (21.0-32.0); Chloride 101 mmol/L (98-108); Estimated Creatinine Clearance 71.26 ml/min (50-250); Globulin 2.8 g/dL (2.2-4.2); Glucose 79 mg/dL (70-99); Potassium 5.0 mmol/L (3.3-5.1)
[2024-09-13 08:09] LABS: GGTP 39 IU/L (0-60)
[2024-09-13] MEDS: Metoprolol(XL)Succ 25 MG Tablet PO (09:18)
[2024-09-13] MEDS: Pantoprazole Sodium 40 MG in 0.9% Normal Saline (100mL MB+) 100 ML 300 MG IV (09:19)
--- NOTE | 2024-09-13 12:19 | PCM.DC ---
Discharge Instructions Diet Discharge Diet: Light diet - advance as tolerated and Soft diet DC O2, CPAP, BIPAP needs Home O2 Discharge instructions: No Follow Up Care Test Results: Test results from this visit will be discussed in further detail at your follow-up appointment, if applicable. Discharge Plan Admission Admit Date/Time: 09/11/24 23:43 Primary Reason for Your Visit: Abdominal pain, intractable nausea vomiting Attending Provider: Emerson Sierra Primary Care Provider: Dex Wilkinson Consulting Providers: Nito Umaña Discharge Orders/Prescriptions Prescriptions: New ondansetron 4 mg tablet,disintegrating 4 mg PO Q8H PRN (Reason: nausea and vomiting) 14 Days Qty: 20 0RF Continued metoprolol succinate 25 mg tablet extended release 24 hr 25 mg PO QDAY alprazolam 0.5 mg tablet 0.5 mg PO BID Patient Comments: TAKE 1 TABLET BY MOUTH TWICE DAILY zolpidem 10 mg tablet 10 mg PO QHS sucralfate [Carafate] 1 gram tablet 1 g PO BIDCM pantoprazole 40 mg tablet,delayed release (DR/EC) 40 mg PO BID spironolactone 25 mg tablet 25 mg PO DAILY Referrals / Follow Up: Aliya Dennison MD [Med Staff - Active Staff] - Within 1 Week Dex Wilkinson MD [Primary Care Provider] - Within 1 Week Quang Myles DO [Med Staff - Active Staff] - Within 1 Month Disposition Disposition (needs filled in before D/C Order can be placed): Home, Self Care
--- NOTE | 2024-09-13 12:37 | PCM.DC.SUM ---
Providers Date of Admission: 09/11/24 Date of Discharge: 09/13/24 Primary Care Physician: Dr. Dex Wilkinson MD Consultations 09/12/24 00:20 Consult: Gastroenterology Routine Consulting Provider: [facility] Reason for Consult: Intractable abdominal pain after recent failed celiac plexus block. EMERGENT Consult: No MD Notified: Yes Date Notified: 09/12/24 Time Notified: 06:14 Method of Notification: Text Reason For Visit: INTRACTABLE ABDOMINAL PAIN AFTER RECENT FAILED Diagnosis Discharge Diagnosis (1) Intractable abdominal pain: Status: Acute Code(s): R10.9 - Unspecified abdominal pain (2) Chronic abdominal pain: Status: Chronic Code(s): R10.9 - Unspecified abdominal pain; G89.29 - Other chronic pain (3) History of celiac plexus block: Status: Acute Code(s): Z98.890 - Other specified postprocedural states (4) Elevated lipase: Status: Acute Code(s): R74.8 - Abnormal levels of other serum enzymes (5) Leukocytosis: Status: Acute Code(s): D72.829 - Elevated white blood cell count, unspecified Qualifiers: Leukocytosis type: unspecified Qualified Code(s): D72.829 - Elevated white blood cell count, unspecified (6) History of biliary stent insertion: Status: Acute Code(s): Z98.890 - Other specified postprocedural states (7) History of insertion of pancreatic stent: Status: Acute Code(s): Z98.890 - Other specified postprocedural states Plan 43-year-old female admitted with RUQ/epigastric pain, back pain and generalized allover pain. Dr. Dennison has performed celiac block due to pain but that did not improve the pain. No fever or chills. 1. Intractable [id number] abdominal pain after recent failed celiac plexus block - Admit to general medical floor under observation status. GI consulted. Change PPI IV pantoprazole once daily. Exact etiology of pain not clear. 09/13: Advised follow-up with the pain healthcare specialist Dr. Dennison. Patient got relief with the fentanyl patch therefore advised to continue. Unintentional overdose risk score is above average, 380 and also she is on Xanax 0.5 mg twice daily therefore advised to follow-up with Dr. Dennison pain medication prescription. 2. Mildly elevated lipase of 113 U/L present on admission - Doubt acute pancreatitis. Leukocytosis 13.7, probably inflammatory to she denies prior history of acute or chronic pancreatitis. Keep n.p.o. except medications and ice chips with sips and hydrate with NS at 150 cc/h x 2L. Repeat lipase tomorrow a.m. 3. History of biliary stent and pancreatic stent with chronic abdominal pain status post recent celiac plexus block procedure: She had ERCP 08/21/2024 which showed single localized biliary stricture in the lower third of CBD. Mid dilatation of pancreatic duct in the genu of PD and pancreatic duct stricture. Choledocholithiasis found and complete removal accomplished by balloon extraction and sphincterotomy. Single pancreatic stone found. Biliary tree was swept. Cells for cytology obtained, 1 temporary stent into CBD and 1 temporary stent in ventral pancreatic duct. Cells brushing reported no malignant cells. 09/13: Heart rate is controlled. CT abdomen with and without contrast shows a stent in CBD at the point previous CT of 09/11. Trace pneumobilia probably from previous ERCP. Vasculature mild aortic atherosclerosis otherwise no acute abnormality. Impression: No significant interval change. . 4. Recent admission here from July 20, 2024 to July 24, 2024 for treatment of AE CHF with elevated NT pro-BNP II of 6,468 pg/mL present on admission with corresponding CT evidence of pulmonary vascular congestion complicated by mildly elevated troponin and leukocytosis of 14.3 K with left shift of 1% due to possible superimposed pneumonia - Noted. 5. HOCM status post AICD with family history: Chronic history of dyspnea on exertion, stated had to stop twice on climbing 1 flight of stair but no significant problem on walking 500 feet on level ground. 6. Multiple other comorbidities which include chronic intermittent asthma, migraine headache, generalized anxiety and insomnia: Home medication decussation done. 7. DVT prophylaxis - Enoxaparin 40 mg sq daily plus SCD's. Discharge medication reconciliation done. Discharge follow-up instructions completed. Discharge process discussed with the patient and all questions were answered to patient's satisfaction. Follow with PCP in 1 to 2 weeks Total time spent, exact 35 minutes on discharge meds reconciliation, examination, coordination of care with nurses and ancillary staff, review of imaging and blood test and discussion with the patient on follow-up instructions. Medications at Discharge Home Medications alprazolam 0.5 mg tablet 0.5 mg PO BID ANXIETY 11/13/21 zolpidem 10 mg tablet 10 mg PO QHS SLEEP 11/13/21 sucralfate 1 gram tablet (Carafate) 1 g PO BIDCM GERD 07/10/24 metoprolol succinate 25 mg tablet,extended release 24 hr 25 mg PO QDAY HEART 08/08/24 pantoprazole 40 mg tablet,delayed release 40 mg PO BID GERD 08/11/24 spironolactone 25 mg tablet 25 mg PO DAILY WATER PILL 08/20/24 ondansetron 4 mg disintegrating tablet 4 mg PO Q8H PRN nausea and vomiting 2 weeks #20 tabs 09/13/24 Physical Exam Narrative Seen and examined Abdominal pain is controlled. Patient denies any fever or chills. Vitals in normal range. Complain of epigastric abdominal pain which is acute on chronic. Denies prior history of acute or chronic pancreatitis, had cholecystectomy. She had ERCP and stent in pancreatic and bile duct. Personal and family history of HOCM status post defibrillator. She stated OCOM more prevalent in female than male in her family. In the past had 1 shock due to lead malfunction but not from cardiac arrest. Physical exam General: Alert, Oriented x3, Cooperative. BMI 21.7 kg/m² HEENT: Atraumatic, PERRLA, EOMI, Normocephalic. Oral: No Gingival or Mucosal Lesions/ Ulcerations Neck: Supple, No JVD, Negative Carotid Bruits Chest wall/Lungs: Air entry diminished in bilateral lung bases. No crepitation/rhonchi Cardiovascular: Pulse bisferiens on carotid palpation. regular rate and rhythm, Normal S1,S2, systolic murmur Abdomen: Tenderness present on epigastrium/RUQ. Bowel Sounds Present, Soft, nondistended : No dysuria. No renal angle tenderness. No suprapubic tenderness. Extremities: No edema, Capillary Refill Less than 3 Seconds Skin: No rashes, No breakdown Musculoskeletal: No Tenderness to Palpation of Joints or Extremities Neurological: Cranial nerves II-XII grossly intact, DTR 2+/4. No acute focal neurological deficit. Psych/Mental Status: Normal Affect, Appropriate. Weight / BMI Weight Weight: 130 lb 11.746 oz Body Mass Index (BMI) 22.4 ABG / Lab / Microbiology Data 09/13/24 05:04 09/13/24 05:04 Laboratory: Laboratory Results - last 24 hr 09/12/24 05:36: GGT 39 09/13/24 05:04: WBC 19.2 H, RBC 4.14 L, Hgb 12.7, Hct 41.1, MCV 99.3 H, MCH 30.7, MCHC 30.9 L, RDW Std Deviation 52.7 H, RDW Coeff of Damon 14.5, Plt Count 359, MPV 10.5, Immature Gran % (Auto) 0.900, Neut % (Auto) 85.8 H, Lymph % (Auto) 6.3 L, [place] % (Auto) 6.7, Eos % (Auto) 0.1, Baso % (Auto) 0.2, Absolute Neuts (auto) 16.5 H, Absolute Lymphs (auto) 1.21, Nucleated RBC % 0, Sodium 133, Potassium 5.0, Chloride 101, Carbon Dioxide 17.5 L, Anion Gap 15, BUN 19, Creatinine 0.87, Estim Creat Clear Calc 71.26, Est GFR (MDRD) Non-Af 85, BUN/Creatinine Ratio 21.6 H, Glucose 79, Calcium 9.7, Phosphorus 5.2 H, Total Bilirubin 1.13, Direct Bilirubin 0.41 H, AST 34 H, ALT 28, Alkaline Phosphatase 146 H, Total Protein 7.3, Albumin 4.5, Globulin 2.8 Radiography Diagnostic Testing: Radiology Impression Abdomen/Pelvis CT 09/12/24 19:58 IMPRESSION: 1. No significant interval change. The biliary and pancreatic stents are in unchanged position, and there is trace left pneumobilia which is also unchanged. 2. Heterogeneous enhancement of the mildly enlarged liver, without discrete lesion. Differential again includes hepatitis, hepatic fibrosis, or transient hepatic attenuation differences (GIL), amongst other etiologies. Correlate with laboratory analysis. 3. Trace perihepatic ascites and small volume of pelvic free fluid. Reading Location: [id number] Instructions Discharge Diet: Light diet - advance as tolerated and Soft diet DC O2, CPAP, BIPAP Needs Home O2 Discharge instructions: No Meaningful Use Info Meaningful Use Meaningful Use Diagnoses (Choose all that apply): None applicable Ischemic Stroke Statin Dosing Therapy Reference: STATIN DOSE THERAPY REFERENCE: * Patients > 75 years receive moderate or high dose statin therapy. * Patients 75 years or YOUNGER should receive HIGH intensity statin dose unless contraindicated. You will be required to document reason for non-treatment if statin daily dose does not meet guidelines. HIGH DOSE STATIN THERAPY DAILY Atorvastatin > than or = to 40 mg Rosuvastatin > than or = to 20 mg Amlodipine + Atorvastatin > than or = to 2.5/40 mg Ezetimibe + Simvastatin 10/80 mg Simvastatin 80mg Discharge Plan Admission Admit Date/Time: 09/11/24 23:43 Primary Reason for Your Visit: Abdominal pain, intractable nausea vomiting Attending Provider: Emerson Sierra Primary Care Provider: Dex Wilkinson Consulting Providers: Nito Umaña Discharge Orders/Prescriptions Prescriptions: New ondansetron 4 mg tablet,disintegrating 4 mg PO Q8H PRN (Reason: nausea and vomiting) 14 Days Qty: 20 0RF Continued metoprolol succinate 25 mg tablet extended release 24 hr 25 mg PO QDAY alprazolam 0.5 mg tablet 0.5 mg PO BID Patient Comments: TAKE 1 TABLET BY MOUTH TWICE DAILY zolpidem 10 mg tablet 10 mg PO QHS sucralfate [Carafate] 1 gram tablet 1 g PO BIDCM pantoprazole 40 mg tablet,delayed release (DR/EC) 40 mg PO BID spironolactone 25 mg tablet 25 mg PO DAILY Referrals / Follow Up: Aliya Dennison MD [Med Staff - Active Staff] - Within 1 Week Dex Wilkinson MD [Primary Care Provider] - Within 1 Week Quang Myles DO [Med Staff - Active Staff] - Within 1 Month Disposition Disposition (needs filled in before D/C Order can be placed): Home, Self Care Charges/Coding Visit Charges Inpatient E&M: 65286 Disch Hosp >30min
--- NOTE | 2024-09-13 12:46 | NURSING ---
This RN had talked to Dr Sierra on the phone around 1205 and reported that pt had not received pain medication this shift and pt had mentioned that she would like to go home. This RN then went in to pt room where pt stated that she was in 9/10 abdominal pain. She said the pain was returning and was requesting pain medication. This RN sent a message to Dr Sierra reporting that pt had received pain medication d/t increased pain and that pt did not want to DC home at this time. Dr Sierra responded to message saying that pt can DC in 2-3 hours (around 1500) and follow up with Dr Dennison for pain management. Will continue to monitor pt.
--- NOTE | 2024-09-13 16:12 | PN.HOSP_ITS ---
Reason for Visit Reason for Visit: Diagnoses Elevated white blood cell count, unspecified (09/11/24) Other chronic pain (09/11/24) Unspecified abdominal pain (09/11/24) Abnormal levels of other serum enzymes (09/11/24) Other specified postprocedural states (09/11/24) Objective Data Objective Data Vital Signs: Vital Signs Temp Pulse Resp BP Pulse Ox O2 Del Method 97.5 F L 58 L 20 H 123/77 H 100 Room Air 09/13/24 12:25 09/13/24 12:25 09/13/24 12:25 09/13/24 12:25 09/13/24 12:09/13/24 13:52 Oxygen Delivery Method Room Air Weight: 130 lb 11.746 oz Body Mass Index (BMI) 22.4 Intake & Output: Intake and Output for Last 24 Hours 09/11/24 09/12/24 09/13/24 23:59 23:59 23:59 Intake Total 1000 / 1000 2860 / 2860 100 / 100 Balance 1000 / 1000 2860 / 2860 100 / 100 Lab / Micro Data 09/13/24 05:04 09/13/24 05:04 Labs: Laboratory Results - last 24 hr 09/12/24 05:36: GGT 39 09/13/24 05:04: WBC 19.2 H, RBC 4.14 L, Hgb 12.7, Hct 41.1, MCV 99.3 H, MCH 30.7, MCHC 30.9 L, RDW Std Deviation 52.7 H, RDW Coeff of Damon 14.5, Plt Count 359, MPV 10.5, Immature Gran % (Auto) 0.900, Neut % (Auto) 85.8 H, Lymph % (Auto) 6.3 L, Will % (Auto) 6.7, Eos % (Auto) 0.1, Baso % (Auto) 0.2, Absolute Neuts (auto) 16.5 H, Absolute Lymphs (auto) 1.21, Nucleated RBC % 0, Sodium 133, Potassium 5.0, Chloride 101, Carbon Dioxide 17.5 L, Anion Gap 15, BUN 19, Creatinine 0.87, Estim Creat Clear Calc 71.26, Est GFR (MDRD) Non-Af 85, B UN/Creatinine Ratio 21.6 H, Glucose 79, Calcium 9.7, Phosphorus 5.2 H, Total Bilirubin 1.13, Direct Bilirubin 0.41 H, AST 34 H, ALT 28, Alkaline Phosphatase 146 H, Total Protein 7.3, Albumin 4.5, Globulin 2.8 Radiography Diagnostic Testing: Radiology Impression Abdomen/Pelvis CT 09/12/24 19:58 IMPRESSION: 1. No significant interval change. The biliary and pancreatic stents are in unchanged position, and there is trace left pneumobilia which is also unchanged. 2. Heterogeneous enhancement of the mildly enlarged liver, without discrete lesion. Differential again includes hepatitis, hepatic fibrosis, or transient hepatic attenuation differences (GIL), amongst other etiologies. Correlate with laboratory analysis. 3. Trace perihepatic ascites and small volume of pelvic free fluid. Reading Location: [facility] Physical Exam Narrative Seen and examined In afternoon, patient abdominal pain came back. She feels like it is coming in the waves from epigastrium or around right anterior abdominal wall and goes to the back. She says does not feel good to go home. Discharge canceled She had Dilaudid in afternoon. Patient denies any fever or chills. Vitals in normal range. Complain of epigastric abdominal pain which is acute on chronic. Denies prior history of acute or chronic pancreatitis, had cholecystectomy. She had ERCP and stent in pancreatic and bile duct. Personal and family history of HOCM status post defibrillator. She stated OCOM more prevalent in female than male in her family. In the past had 1 shock due to lead malfunction but not from cardiac arrest. Physical exam General: Alert, Oriented x3, Cooperative. BMI 21.7 kg/m² HEENT: Atraumatic, PERRLA, EOMI, Normocephalic. Oral: No Gingival or Mucosal Lesions/ Ulcerations Neck: Supple, No JVD, Negative Carotid Bruits Chest wall/Lungs: Air entry diminished in bilateral lung bases. No crepitation/rhonchi Cardiovascular: Pulse bisferiens on carotid palpation. regular rate and rhythm, Normal S1,S2, systolic murmur Abdomen: Tenderness present on epigastrium/RUQ. Bowel Sounds Present, Soft, nondistended : No dysuria. No renal angle tenderness. No suprapubic tenderness. Extremities: No edema, Capillary Refill Less than 3 Seconds Skin: No rashes, No breakdown Musculoskeletal: No Tenderness to Palpation of Joints or Extremities Neurological: Cranial nerves II-XII grossly intact, DTR 2+/4. No acute focal neurological deficit. Psych/Mental Status: Normal Affect, Appropriate. Const alert, oriented x3, no apparent distress, average body habitus and healthy appearing Constitutional Narrative: Patient is tearful and bitterly complaining of severe abdominal pain out of proportion to her physical exam. General Appearance: cooperative HEENT normocephalic, head/scalp atraumatic, hearing grossly normal bilaterally and moist oral mucous membranes Eyes PERRL and EOMs intact bilaterally Neck no lymphadenopathy, supple and no JVD Resp normal respiratory effort, no retractions, no use of accessory muscles and clear to auscultation bilaterally Cardio regular rate and regular rhythm GI normal to inspection, nondistended, normoactive bowel sounds and soft to palpation GI Narrative: Patient's abdomen is diffusely tender with voluntary guarding without rebound or rigidity. Extremity normal to inspection, full ROM and no clubbing, cyanosis or edema Skin Skin Narrative: Patient has no evidence of rash, abscess, wounds or jaundice. Neuro oriented x3, CN's II-XII intact bilaterally, moves all extremities and no focal motor deficits Sensorium / Orientation: awake, alert, oriented to person, oriented to place and oriented to time Speech: speech normal Psych Mood & Affect: depressed and anxious Assessment & Plan Assessment/Plan (1) Intractable abdominal pain: (2) Chronic abdominal pain: (3) History of celiac plexus block: (4) Elevated lipase: (5) Leukocytosis: QUALIFIERS: Leukocytosis type: unspecified Qualified Code(s): D 72.829 - Elevated white blood cell count, unspecified (6) History of biliary stent insertion: (7) History of insertion of pancreatic stent: PLAN: Plan 43-year-old female admitted with RUQ/epigastric pain, back pain and generalized allover pain. Dr. Dennison has performed celiac block due to pain but that did not improve the pain. No fever or chills. 1. Intractable chxcu-ih-wbzzalg abdominal pain after recent failed celiac plexus block - Admit to general medical floor under observation status. GI consulted. Change PPI IV pantoprazole once daily. Exact etiology of pain not clear. 09/13: Advised follow-up with the pain sales and in home delivery specialist Dr. Dennison. Patient got relief with the fentanyl patch therefore advised to continue. Unintentional overdose risk score is above average, 380 and also she is on Xanax 0.5 mg twice daily therefore advised to follow-up with Dr. Dennison pain medication prescription. In afternoon, her abdominal pain came back. She had Dilaudid 1 mg. On fentanyl patch 25 mcg every 72 hours. Discharge is canceled. The patient does not feel confident to take her home. He said she will come right back in the ER 2. Mildly elevated lipase of 113 U/L present on admission - Doubt acute pancreatitis. Leukocytosis 13.7, probably inflammatory to she denies prior history of acute or chronic pancreatitis. Keep n.p.o. except medications and ice chips with sips and hydrate with NS at 150 cc/h x 2L. Repeat lipase tomorrow a.m. 3. History of biliary stent and pancreatic stent with chronic abdominal pain status post recent celiac plexus block procedure: She had ERCP 08/21/2024 which showed single localized biliary stricture in the lower third of CBD. Mid dilatation of pancreatic duct in the genu of PD and pancreatic duct stricture. Choledocholithiasis found and complete removal accomplished by balloon extraction and sphincterotomy. Single pancreatic stone found. Biliary tree was swept. Cells for cytology obtained, 1 temporary stent into CBD and 1 temporary stent in ventral pancreatic duct. Cells brushing reported no malignant cells. 09/13: Heart rate is controlled. CT abdomen with and without contrast shows a stent in CBD at the point previous CT of 09/11. Trace pneumobilia probably from previous ERCP. Vasculature mild aortic atherosclerosis otherwise no acute abnormality. Impression: No significant interval change. . 4. Recent admission here from July 20, 2024 to July 24, 2024 for treatment of AE CHF with elevated NT pro-BNP II of 6,468 pg/mL present on admission with corresponding CT evidence of pulmonary vascular congestion complicated by mildly elevated troponin and leukocytosis of 14.3 K with left shift of 1% due to possible superimposed pneumonia - Noted. 5. HOCM status post AICD with family history: Chronic history of dyspnea on exertion, stated had to stop twice on climbing 1 flight of stair but no significant problem on walking 500 feet on level ground. 6. Multiple other comorbidities which include chronic intermittent asthma, migraine headache, generalized anxiety and insomnia: Home medication decussation done. 7. DVT prophylaxis - Enoxaparin 40 mg sq daily plus SCD's. Discharge medication reconciliation done. Discharge follow-up instructions completed. Discharge process discussed with the patient and all questions were answered to patient's satisfaction. Follow with PCP in 1 to 2 weeks Total time spent, exact 35 minutes on discharge meds reconciliation, examination, coordination of care with nurses and ancillary staff, review of imaging and blood test and discussion with the patient on follow-up instructions. Charges/Coding Visit Charges Inpatient E&M: 26434 Subs Hosp L2
--- NOTE | 2024-09-13 18:01 | NURSING ---
This RN was notified that pt reported falling on her knees while washing her hands. Vital signs stable and no abrasions or bruises note on knees. Pt very anxious, restless, and falling asleep while sitting. This RN contacted Dr Sierra with these findings. Dr Sierra aware and no new orders at this time. Pt placed in bed and bed exit turned on. Will continue to monitor.
[2024-09-14 02:58] VITALS: BP 133/99; PULSE 69; RESP 18; TEMP 36.3; O2SAT 98
[2024-09-14] MEDS: 0.9% Saline Lock 10 ML Syringe IV (03:11)
[2024-09-14 04:07] LABS: GGTP 45 IU/L (0-60)
[2024-09-14 06:00] VITALS: BMI 24.5
[2024-09-14 06:08] LABS: Hematocrit 38.4 % (37-47); Hemoglobin 12.2 g/dL (12.0-15.0); Immature Granulocytes Count 0.130 X10^3/uL (0.0-0.0); Mean Corp Hgb Conc 31.8 g/dL (32-36); Mean Corpuscular Volume 96.5 fL (81-99); Mean Platelet Vol. 10.2 fl (6.2-12.0); NRBC Flagged by Analyzer 0 % (0-5); POSITIVE DIFFERENTIAL YES; Platelet Count 339 K/mm3 (150-450); RBC Distribution Width CV 14.5 % (11.6-14.6); RBC Distribution Width SD 51.4 fl (35.1-43.9); Red Blood Count 3.98 M/mm3 (4.2-5.4); White Blood Count 17.3 K/mm3 (4.4-11.0)
[2024-09-14 06:17] LABS: Differential Indicated SCAN CRITERIA MET
[2024-09-14 06:18] LABS: AST(SGOT) 443 U/L (<=31); Alanine Aminotransfer ALT/SGPT 322 U/L (<=34); Albumin, Serum 4.6 g/dL (3.5-5.0); Alkaline Phosphatase 153 U/L (35-104); Anion Gap 12 (5-15); BUN 19 mg/dL (4-19); BUN/Creat Ratio 19.8 RATIO (10-20); Bilirubin, Direct 0.39 mg/dL (0.00-0.30); Calcium,Total 9.6 mg/dL (7.6-11.0); Carbon Dioxide 18.9 mmol/L (21.0-32.0); Chloride 101 mmol/L (98-108); Estimated Creatinine Clearance 63.26 ml/min (50-250); Globulin 2.7 g/dL (2.2-4.2); Glucose 119 mg/dL (70-99); Potassium 4.6 mmol/L (3.3-5.1)
[2024-09-14 07:31] VITALS: O2SAT 97
[2024-09-14 09:00] VITALS: BP 119/84; PULSE 60; RESP 17; TEMP 36.3; O2SAT 99
[2024-09-14 10:19] VITALS: PULSE 60
[2024-09-14] MEDS: Metoprolol(XL)Succ 25 MG Tablet PO (10:19)
[2024-09-14] MEDS: Pantoprazole Sodium 40 MG in 0.9% Normal Saline (100mL MB+) 100 ML 330 MG IV (10:20)
--- NOTE | 2024-09-14 10:57 | DCINST_ITS ---
Discharge Instructions Diet Discharge Diet: Light diet - advance as tolerated and Soft diet DC O2, CPAP, BIPAP needs Home O2 Discharge instructions: No Follow Up Care Test Results: Test results from this visit will be discussed in further detail at your follow- up appointment, if applicable. Discharge Plan Admission Admit Date/Time: 09/11/24 23:43 Primary Reason for Your Visit: Abdominal pain, intractable nausea vomiting Attending Provider: Emerson Sierra Primary Care Provider: Dex Wilkinson Consulting Providers: Nito Umaña Discharge Orders/Prescriptions Prescriptions: New ondansetron 4 mg tablet,disintegrating 4 mg PO Q8H PRN (Reason: nausea and vomiting) 14 Days Qty: 20 0RF lidocaine [Hemorrhoidal Relief] 5 % cream 1 applic topical BID 14 Days Qty: 30 1RF oxycodone 5 mg tablet 2.5 - 5 mg PO Q4H PRN PRN (Reason: Pain Score 4-10) 3 Days Qty: 7 0RF Rx Instructions: 2.5 mg for moderate pain 5 mg for severe pain respectively Continued metoprolol succinate 25 mg tablet extended release 24 hr 25 mg PO QDAY alprazolam 0.5 mg tablet 0.5 mg PO BID Patient Comments: TAKE 1 TABLET BY MOUTH TWICE DAILY zolpidem 10 mg tablet 10 mg PO QHS sucralfate [Carafate] 1 gram tablet 1 g PO BIDCM pantoprazole 40 mg tablet,delayed release (DR/EC) 40 mg PO BID spironolactone 25 mg tablet 25 mg PO DAILY Referrals / Follow Up: Aliya Dennison MD [Med Staff - Active Staff] - Within 1 Week Dex Wilkinson MD [Primary Care Provider] - Within 1 Week Quang Myles DO [Med Staff - Active Staff] - Within 1 Month Disposition Disposition (needs filled in before D/C Order can be placed): Home, Self Care
--- NOTE | 2024-09-14 11:02 | DS.PCM_ITS ---
Providers Date of Admission: 09/11/24 Date of Discharge: 09/14/24 Primary Care Physician: Dr. Dxe Wilkinson MD Consultations 09/12/24 00:20 Consult: Gastroenterology Routine Consulting Provider: [facility] Reason for Consult: Intractable abdominal pain after recent failed celiac plexus block. EMERGENT Consult: No MD Notified: Yes Date Notified: 09/12/24 Time Notified: 06:14 Method of Notification: Text Reason For Visit: INTRACTABLE ABDOMINAL PAIN AFTER RECENT FAILED Diagnosis Discharge Diagnosis (1) Intractable abdominal pain: Status: Acute Code(s): R10.9 - Unspecified abdominal pain (2) Chronic abdominal pain: Status: Chronic Code(s): R10.9 - Unspecified abdominal pain; G89.29 - Other chronic pain (3) History of celiac plexus block: Status: Acute Code(s): Z98.890 - Other specified postprocedural states (4) Elevated lipase: Status: Acute Code(s): R74.8 - Abnormal levels of other serum enzymes (5) Leukocytosis: Status: Acute Code(s): D72.829 - Elevated white blood cell count, unspecified Qualifiers: Leukocytosis type: unspecified Qualified Code(s): D72.829 - Elevated white blood cell count, unspecified (6) History of biliary stent insertion: Status: Acute Code(s): Z98.890 - Other specified postprocedural states (7) History of insertion of pancreatic stent: Status: Acute Code(s): Z98.890 - Other specified postprocedural states Plan 43-year-old female admitted with RUQ/epigastric pain, back pain and generalized allover pain. Dr. Dennison has performed celiac block due to pain but that did not improve the pain. No fever or chills. 1. Intractable dmrwc-ew-iudkzpw abdominal pain after recent failed celiac plexus block - Admit to general medical floor under observation status. GI consulted. Change PPI IV pantoprazole once daily. Exact etiology of pain not clear. In afternoon, her abdominal pain came back. She had Dilaudid 1 mg. On fentanyl patch 25 mcg every 72 hours. Discharge is canceled. The patient does not feel confident to take her home. He said she will come right back in the ER 09/14: Advised follow-up with the pain senior tax specialist Dr. Dennison. Patient is stated that he did not like Dr. Dennison but advised to follow him up. Unintentional overdose risk score is above average, 380 and also she is on Xanax 0.5 mg twice daily therefore advised to follow-up with Dr. Dennison pain medication prescription. Fentanyl patch comes in box of 5 therefore did not prescribe anything little bit too much. OARRS report checked. Oxycodone 5 mg tablet, 2.5 to 5 mg Q4 hourly as needed for moderate to severe pain respectively. Prescription of oxycodone 5 mg tablets sent to [facility] pharmacy. 2. Mildly elevated lipase of 113 U/L present on admission - Doubt acute pancreatitis. Leukocytosis 13.7, probably inflammatory to she denies prior history of acute or chronic pancreatitis. Keep n.p.o. except medications and ice chips with sips and hydrate with NS at 150 cc/h x 2L. Repeat lipase tomorrow a.m. 3. History of biliary stent and pancreatic stent with chronic abdominal pain status post recent celiac plexus block procedure: She had ERCP 08/21/2024 which showed single localized biliary stricture in the lower third of CBD. Mid dilatation of pancreatic duct in the genu of PD and pancreatic duct stricture. Choledocholithiasis found and complete removal accomplished by balloon extraction and sphincterotomy. Single pancreatic stone found. Biliary tree was swept. Cells for cytology obtained, 1 temporary stent into CBD and 1 temporary stent in ventral pancreatic duct. Cells brushing reported no malignant cells. 09/13: Heart rate is controlled. CT abdomen with and without contrast shows a stent in CBD at the point previous CT of 09/11. Trace pneumobilia probably from previous ERCP. Vasculature mild aortic atherosclerosis otherwise no acute abnormality. Impression: No significant interval change. . 4. Recent admission here from July 20, 2024 to July 24, 2024 for treatment of AE CHF with elevated NT pro-BNP II of 6,468 pg/mL present on admission with corresponding CT evidence of pulmonary vascular congestion complicated by mildly elevated troponin and leukocytosis of 14.3 K with left shift of 1% due to possible superimposed pneumonia - Noted. 5. HOCM status post AICD with family history: Chronic history of dyspnea on exertion, stated had to stop twice on climbing 1 flight of stair but no significant problem on walking 500 feet on level ground. 6. Multiple other comorbidities which include chronic intermittent asthma, migraine headache, generalized anxiety and insomnia: Home medication decussation done. 7. DVT prophylaxis - Enoxaparin 40 mg sq daily plus SCD's. Discharge medication reconciliation done. Discharge follow-up instructions completed. Discharge process discussed with the patient and all questions were answered to patient's satisfaction. Follow with PCP in 1 to 2 weeks Total time spent, exact 35 minutes on discharge meds reconciliation, examination, coordination of care with nurses and ancillary staff, review of imaging and blood test and discussion with the patient on follow-up instructions. Medications at Discharge Home Medications alprazolam 0.5 mg tablet 0.5 mg PO BID ANXIETY 11/13/21 zolpidem 10 mg tablet 10 mg PO QHS SLEEP 11/13/21 sucralfate 1 gram tablet (Carafate) 1 g PO BIDCM GERD 07/10/24 metoprolol succinate 25 mg tablet,extended release 24 hr 25 mg PO QDAY HEART 08/08/24 pantoprazole 40 mg tablet,delayed release 40 mg PO BID GERD 08/11/24 spironolactone 25 mg tablet 25 mg PO DAILY WATER PILL 08/20/24 lidocaine 5 % topical cream (Hemorrhoidal Relief) 1 applic topical BID pain 2 weeks #30 grams 09/13/24 ondansetron 4 mg disintegrating tablet 4 mg PO Q8H PRN nausea and vomiting 2 weeks #20 tabs 09/13/24 oxycodone 5 mg tablet 2.5 - 5 mg (0.5 - 1 x 5 mg) PO Q4H PRN PRN Pain Score 4-10 3 days #7 tabs 09/14/24 Physical Exam Narrative Seen and examined Her heart rate is controlled. Patient came from bathroom and started crying that she still has pain. I tried to empathize with her that pain does not seem from organic cause but may be neuropathic functional pain. Advised to follow-up pain management Dr. Dennison. Patient denies any fever or chills. Vitals in normal range. Complain of epigastric abdominal pain which is acute on chronic. Denies prior history of acute or chronic pancreatitis, had cholecystectomy. She had ERCP and stent in pancreatic and bile duct. Personal and family history of HOCM status post defibrillator. She stated OCOM more prevalent in female than male in her family. In the past had 1 shock due to lead malfunction but not from cardiac arrest. Physical exam General: Alert, Oriented x3, Cooperative. BMI 21.7 kg/m² HEENT: Atraumatic, PERRLA, EOMI, Normocephalic. Oral: No Gingival or Mucosal Lesions/ Ulcerations Neck: Supple, No JVD, Negative Carotid Bruits Chest wall/Lungs: Air entry diminished in bilateral lung bases. No crepitation/rhonchi Cardiovascular: Pulse bisferiens on carotid palpation. regular rate and rhythm, Normal S1,S2, systolic murmur Abdomen: Tenderness present on epigastrium/RUQ. Bowel Sounds Present, Soft, nondistended : No dysuria. No renal angle tenderness. No suprapubic tenderness. Extremities: No edema, Capillary Refill Less than 3 Seconds Skin: No rashes, No breakdown Musculoskeletal: No Tenderness to Palpation of Joints or Extremities Neurological: Cranial nerves II-XII grossly intact, DTR 2+/4. No acute focal neurological deficit. Psych/Mental Status: Normal Affect, Appropriate. Weight / BMI Weight Weight: 142 lb 13.753 oz Body Mass Index (BMI) 24.5 ABG / Lab / Microbiology Data 09/14/24 05:16 09/14/24 05:16 Laboratory: Laboratory Results - last 24 hr 09/13/24 05:04: GGT 45 09/14/24 05:16: WBC 17.3 H, RBC 3.98 L, Hgb 12.2, Hct 38.4, MCV 96.5, MCH 30.7, MCHC 31.8 L, RDW Std Deviation 51.4 H, RDW Coeff of Damon 14.5, Plt Count 339, MPV 10.2, Immature Gran % (Auto) 0.700, Neut % (Auto) 83.5 H, Lymph % (Auto) 6.7 L, [place] % (Auto) 8.8, Eos % (Auto) 0.1, Baso % (Auto) 0.2, Absolute Neuts (auto) 14.5 H, Absolute Lymphs (auto) 1.17, Nucleated RBC % 0, Sodium 131 L, Potassium 4.6, Chloride 101, Carbon Dioxide 18.9 L, Anion Gap 12, BUN 19, Creatinine 0.98, Estim Creat Clear Calc 63.26, Est GFR (MDRD) Non-Af 73, BUN/Creatinine Ratio 19.8, Glucose 119 H, Calcium 9.6, Total Bilirubin 0.90, Direct Bilirubin 0.39 H, AST 443 H, ALT 322 H, Alkaline Phosphatase 153 H, Total Protein 7.3, Albumin 4.6, Globulin 2.7 D/C Instructions Discharge Diet: Light diet - advance as tolerated and Soft diet DC O2, CPAP, BIPAP Needs Home O2 Discharge instructions: No Meaningful Use Info Meaningful Use Meaningful Use Diagnoses (Choose all that apply): None applicable Ischemic Stroke Statin Dosing Therapy Reference: STATIN DOSE THERAPY REFERENCE: * Patients > 75 years receive moderate or high dose statin therapy. * Patients 75 years or YOUNGER should receive HIGH intensity statin dose unless contraindicated. You will be required to document reason for non-treatment if statin daily dose does not meet guidelines. HIGH DOSE STATIN THERAPY DAILY Atorvastatin > than or = to 40 mg Rosuvastatin > than or = to 20 mg Amlodipine + Atorvastatin > than or = to 2.5/40 mg Ezetimibe + Simvastatin 10/80 mg Simvastatin 80mg Discharge Plan Admission Admit Date/Time: 09/11/24 23:43 Primary Reason for Your Visit: Abdominal pain, intractable nausea vomiting Attending Provider: Emerson Sierra Primary Care Provider: Dex Wilkinson Consulting Providers: Nito Umaña Discharge Orders/Prescriptions Prescriptions: New ondansetron 4 mg tablet,disintegrating 4 mg PO Q8H PRN (Reason: nausea and vomiting) 14 Days Qty: 20 0RF lidocaine [Hemorrhoidal Relief] 5 % cream 1 applic topical BID 14 Days Qty: 30 1RF oxycodone 5 mg tablet 2.5 - 5 mg PO Q4H PRN PRN (Reason: Pain Score 4-10) 3 Days Qty: 7 0RF Rx Instructions: 2.5 mg for moderate pain 5 mg for severe pain respectively Continued metoprolol succinate 25 mg tablet extended release 24 hr 25 mg PO QDAY alprazolam 0.5 mg tablet 0.5 mg PO BID Patient Comments: TAKE 1 TABLET BY MOUTH TWICE DAILY zolpidem 10 mg tablet 10 mg PO QHS sucralfate [Carafate] 1 gram tablet 1 g PO BIDCM pantoprazole 40 mg tablet,delayed release (DR/EC) 40 mg PO BID spironolactone 25 mg tablet 25 mg PO DAILY Referrals / Follow Up: Aliya Dennison MD [Med Staff - Active Staff] - Within 1 Week Dex Wilkinson MD [Primary Care Provider] - Within 1 Week Quang Myles DO [Med Staff - Active Staff] - Within 1 Month Disposition Disposition (needs filled in before D/C Order can be placed): Home, Self Care Charges/Coding Visit Charges Inpatient E&M: 85714 Disch Hosp >30min
== END 2024-09-14 12:18 | disposition home or self-care (01) ==
LOC: ED 21:44 → MS3 09-12 00:19
PROVIDERS: Admitting Provider Internal Medicine; Emergency Provider Surgery; PCP Family Medicine; Visit Provider Internal Medicine
DX: R10.13 Epigastric pain (principal); I27.20 Pulmonary hypertension, unspecified; I42.2 Other hypertrophic cardiomyopathy; I10 Essential (primary) hypertension; K76.0 Fatty (change of) liver, not elsewhere classified; F17.210 Nicotine dependence, cigarettes, uncomplicated; K21.9 Gastro-esophageal reflux disease without esophagitis; Z86.711 Personal history of pulmonary embolism; F41.1 Generalized anxiety disorder; J98.11 Atelectasis; R16.0 Hepatomegaly, not elsewhere classified; R14.0 Abdominal distension (gaseous); M41.86 Other forms of scoliosis, lumbar region; Z90.89 Acquired absence of other organs; K57.90 Diverticulosis of intestine, part unspecified, without perforation or abscess without bleeding; D72.829 Elevated white blood cell count, unspecified; K64.9 Unspecified hemorrhoids; G89.29 Other chronic pain; J45.20 Mild intermittent asthma, uncomplicated; Z95.810 Presence of automatic (implantable) cardiac defibrillator; Z79.899 Other long term (current) drug therapy
CPT/HCPCS: 36415; 74177; 74178; 80048; 80053; 80076; 81001; 82977; 83605; 83690; 83735; 84100; 84443; 84703; 85025; 94668; 96361; 96365; 96366; 96375; 96376; 99221; 99283; 99406; Q9967; A4216; G0378; J2405

== ENCOUNTER 2024-11-23 12:12 | Day surgery (SDC) | payer OTHER, SELFPAY ==
--- NOTE | 2024-10-24 16:49 | PAT.ANE_ITS ---
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 When Was Last Pacemaker Check 07/04/2024 08/20/24 21:50 QUESTION #4 FULL TEXT: You/Your Family Experience fever (hyperthermia) with Anesthesia Last Oral Intake Last Oral intake: Last Oral Intake NPO since Meds taken in AM with sips of water? 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 - dry heat cabinet attendant: PONV - dry heat cabinet attendant Female Yes 10/24/24 09:44 HX of Motion Sickness No 10/24/24 09:44 HX of N/V After Surgery No 10/24/24 09:44 Non-Smoker No 10/24/24 09:44 Duration of Surgery greater No 10/24/24 09:44 than 60 minutes Number of Risk Factors 1 10/24/24 09:44 PONV Score Low Risk 10/24/24 09:44 Height & Weight Height & Weight: Anesthesia: Height & Weight Height 5 ft 4 in 10/17/24 15:31 Respiratory Assessment Respiratory Assessment - dry heat cabinet attendant: Respiratory Tract Infection Hx - dry heat cabinet attendant Hx Respiratory Tract Infection No 10/24/24 09:44 STOP Sleep Apnea STOP Sleep Apnea - dry heat cabinet attendant: STOP Sleep Apnea - dry heat cabinet attendant Hx Hypertension No 10/24/24 09:44 Hx Sleep Apnea No 10/24/24 09:44 CPAP BIPAP Do you snore loudly (louder No 10/24/24 09:44 than talking or can be heard Do you often feel tired/ No 10/24/24 09:44 fatigued/ sleepy during daytime? Has anyone observed you stop No 10/24/24 09:44 breathing during sleep? STOP Results Negative 10/24/24 09:44 QUESTION #5 FULL TEXT : Do you snore loudly (louder than talking or can be heard through closed doors)? Tobacco Use History Tobacco Use History - dry heat cabinet attendant: Tobacco Use History - dry heat cabinet attendant Tobacco Use Smoking Status Current every day smoker 10/24/24 09:44 Hx Tobacco Use Yes 10/24/24 09:44 Years Smoking Packs Smoked per Day Smoking Cessation Date was within the last 15 years Hx Smoking Cessation Date Hx Smoking Cessation No 10/24/24 09:44 Counseling Hematologic Medial History Hematologic Hx - dry heat cabinet attendant: Hematologic Medical Hx - rn digestive Hx of Blood Transfusion No 10/24/24 09:44 Hx of Transfusion in last 3 No 10/24/24 09:44 Months Date of Last Transfusion (if within last 3 months) Ever experience any problems No 10/24/24 09:44 with transfusion(s)? Specify any problems Hx of Preganancy in last 3 No 10/24/24 09:44 Months Nurse Filling Out Transfusion VCHRISTIN 10/24/24 09:44 & Questions: Date: 10/24/24 10/24/24 09:44 Time: 09:45 10/24/24 09:44 Patient unable to answer at this time (ie. confused, unrespo /Reproduction History /Reproductive History - dry heat cabinet attendant: /Reproductive Hx- dry heat cabinet attendant Hx Now No 10/24/24 09:44 Gestational Age (in weeks): EDC: Hx Hx Para Hx Section SAB No 10/24/24 09:44 PFS Medical History (Updated 10/24/24 @ 09:43 by Irina Qureshi) Normal Holter exam Cardiology follow-up encounter History of CHF (congestive heart failure) Leukocytosis Dilated pancreatic duct Hypertension Severe pulmonary hypertension History of hypertrophic cardiomyopathy Acute systolic congestive heart failure, NYHA class 3 Leukocytosis Cancer History of steroid therapy Easy bruising Migraine headache History of hiatal hernia History of ulceration History of IBS Abdominal bloating Stomach pain Nausea & vomiting Shortness of breath on exertion Smoker History of echocardiogram Chest pain Abdominal pain Pulmonary embolism Endometrial cancer Cervical cancer residential current use of 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 Ovarian cancer GERD (gastroesophageal reflux disease) Insomnia Anxiety Collapsed lung History of blood clots Asthma Breast cancer Pacemaker ICD (implantable cardioverter-defibrillator) in place Hypertrophic cardiomyopathy Home Medications ?Medication ?Instructions ?Recorded ?Last Taken ?Type alprazolam 0.5 mg tablet 0.5 mg PO BID ANXIETY 09/11/24 History zolpidem 10 mg tablet 10 mg PO QHS SLEEP 11/13/21 09/10/24 History sucralfate 1 gram tablet (Carafate) 1 g PO BIDCM GERD 07/10/24 09/10/24 History metoprolol succinate 25 mg 25 mg PO QDAY HEART 5 09/10/24 History tablet,extended release 24 hr pantoprazole 40 mg tablet,delayed 40 mg PO BID GERD 09/10/24 History release spironolactone 25 mg tablet 25 mg PO DAILY WATER PILL 08/20/24 09/10/24 History empagliflozin 10 mg tablet 10 mg PO QDAY 10/12/2410/12 History (Jardiance) buprenorphine 10 mcg/hour weekly 1 patch topical QWEEK 10/17/24 Unknown History transdermal patch furosemide 20 mg tablet (Lasix) 20 mg PO QDAY PRN rosario a 10/17/24 Unknown History Allergy/AdvReac Type Severity Reaction Status Date / Time morphine Allergy Mild Hives Verified 10/24/24 09:30 codeine Allergy Hives Verified 10/24/24 09:30 erythromycin base Allergy PT UNSURE Verified 10/24/24 09:30 OF REACTION Fish Containing Products Allergy Other Verified 10/24/24 09:30 levofloxacin Allergy PT UNSURE Verified 10/24/24 09:30 OF REACTION shellfish derived Allergy Other Verified 10/24/24 09:30 tramadol Allergy Hives Verified 10/24/24 09:30 trimethobenzamide (From Allergy Other Verified 10/24/24 09:30 Tigan) gabapentin (From Neurontin) AdvReac Severe Anaphylaxis Verified 10/24/24 09:30 acetaminophen (From Vicodin) AdvReac Other Verified 10/24/24 09:30 hydrocodone (From Vicodin) AdvReac Other Verified 10/24/24 09:30 metoclopramide (From Reglan) AdvReac Other Verified 10/24/24 09:30 Family History Father Heart disease Idiopathic hypertrophic subaortic stenosis, hypertrophic obstructive cardiomyopathy, congestive heart failure Mother Breast cancer DVT (deep venous thrombosis) Sister Hypertrophic obstructive cardiomyopathy heart transplant at age 34 Cancer Brain, breast, and colon Grandfather Heart disease at age 45 Grandmother CVA (cerebral vascular accident) age 43 Surgical History (Updated 10/24/24 @ 09:43 by Irina Qureshi) History of esophagogastroduodenoscopy (EGD) History of ERCP Presence of implantable cardioverter-defibrillator (ICD) History of cardiac catheterization History of oophorectomy History of cervical polypectomy History of colonoscopy History of tubal ligation History of mastectomy History of cholecystectomy Hx of appendectomy Social History household members: spouse and family housing: house current occupational status: employed Smoking Status: Current every day smoker tobacco type: cigarettes how long ago did patient quit smokin months ago alcohol intake: former substance use type: does not use caffeine: Yes Audit: Pertinent Findings Pertinent Findings Echo (EF%) pertinent findings: Echo 09/21/2024. EF 40%. There is global hypokinesis of the left ventricular with minor regional variations. There is mildly reduced right ventricular systolic function. Mild to moderate tricuspid regurgitation. Are the SP is severely elevated at 69 mmHg. Consult pertinent findings: Cardiology note 10/17/2024. 44-year-old female with history of familial hypertrophic obstructive cardiomyopathy. The patient was hospitalized back in July and heart failure with reduced ejection fraction down to 30%. Last echo September 21, 2024 showed the LV systolic function to be mildly decreased with an ejection fraction estimated 40% the patient has not ICD in place and is monitored through the [facility] device clinic. Pulmonary hypertension probably secondary to her overall cardiac status. Patient is being managed and monitored through the [facility] heart failure clinic with Dr. Pito Kay. Plan continue current medical therapy. Additional pertinent findings: Pacemaker report 10/03/2024. Single-chamber ICD evaluation. Interrogation shows 1 and SVT episode and no AF episodes since 07/24/2024 Recommendation Anesthesia Recommendation Anesthesia recommendation: OPTIMIZED for anesthesia (High risk but seems to be following regularly with cardiology and per cardiology note seems to be stable)
[2024-11-23] VITALS (11 sets, daily range): BP systolic 96–123; BP diastolic 45–81; PULSE 73–87; RESP 16–18; TEMP 36.4–37; O2SAT 98–100; BMI 21.9
--- NOTE | 2024-11-23 12:24 | EKG12_ITS ---
Test Reason : PRE OP Blood Pressure : */* mmHG Vent. Rate : 83 BPM Atrial Rate : 83 BPM P-R Int : 154 ms QRS Dur : 92 ms QT Int : 378 ms P-R-T Axes : 50 -71 85 degrees QTcB Int : 444 ms Normal sinus rhythm Biatrial enlargement Incomplete right bundle branch block Left anterior fascicular block Abnormal ECG When compared with ECG of 20-Aug-2024 15:37, Sinus rhythm has replaced Ectopic atrial rhythm Confirmed by Curt Bishop ([id number]), writer editor ERICKA BURCH ([id number]) on 11/26/2024 1:26:59 PM Referred By: Dex Wilkinson Confirmed By: Curt Bishop
--- NOTE | 2024-11-23 12:33 | PCM.PRE.AN2 ---
ASA Classification* ASA Classification ASA Classification: 4 Assessment & Plan Anesthesia* Anesthesia Assessment Anesthesia Assessment: Discussed sedation and/or anesthesia options, risks, benefits, and alternatives with patient/parents/legal guardian/POA. Questions invited. The patient/parents/legal guardian/POA seems to understand and agrees to proceed with anesthesia plan. Reviewed the physical assessment, medical history, allergy history and patient home medications list prior to surgery/procedure/anesthetic and documented any changes. Performed airway and anesthesia risk assessments. Anesthesia Type Anesthesia Type: General History Source History Obtained from:: Patient and Chart Anesthesia Focused Assessment* Airway Assessment Mouth opens: >3 cm Mallampati Score: II Labs Anesthesia Preop lab: CBC WBC 17.3 K/mm3 (4.4-11.0) H 09/14/24 05:16 09/14/24 RBC 3.98 M/mm3 (4.2-5.4) L 09/14/24 05:16 09/14/24 Hgb 12.2 g/dL (12.0-15.0) 09/14/24 05:16 09/14/24 Hct 38.4 % (37-47) 09/14/24 05:16 09/14/24 Plt Count 339 K/mm3 (150-450) 09/14/24 05:16 09/14/24 CHEMISTRY Potassium 4.6 mmol/L (3.3-5.1) 09/14/24 05:16 09/14/24 Sodium 131 mmol/L (133-145) L 09/14/24 05:16 09/14/24 Magnesium 1.8 mg/dL (1.5-2.2) 09/11/24 22:00 09/11/24 Phosphorus 5.2 mg/dL (2.7-4.5) H 09/13/24 05:04 09/13/24 BUN 19 mg/dL (4-19) 09/14/24 05:16 09/14/24 Creatinine 0.98 mg/dL (0.70-1.20) 09/14/24 05:16 09/14/24 Glucose 119 mg/dL (70-99) H 09/14/24 05:16 09/14/24 TSH 1.410 uIU/mL (0.300-4.200) 09/12/24 05:36 09/12/24 COAG PT 12.8 SECONDS (11.7-14.9) 08/08/24 09:33 08/08/24 Urine Test Negative Negative 08/11/24 10:40 08/11/24 Pre-Assessment Diagnosis/Proposed Procedure Planned Operative Procedure(s): ERCP Anesthesia History 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 When Was Last Pacemaker Check 07/04/2024 08/20/24 21:50 QUESTION #4 FULL TEXT: You/Your Family Experience fever (hyperthermia) with Anesthesia Last Oral Intake Last Oral intake: Last Oral Intake NPO since Meds taken in AM with sips of water? 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 Female Yes 10/24/24 09:44 HX of Motion Sickness No 10/24/24 09:44 HX of N/V After Surgery No 10/24/24 09:44 Non-Smoker No 10/24/24 09:44 Duration of Surgery greater No 10/24/24 09:44 than 60 minutes Number of Risk Factors 1 10/24/24 09:44 PONV Score Low Risk 10/24/24 09:44 Height & Weight Height & Weight: Anesthesia: Height & Weight Height 5 ft 4 in 10/17/24 15:31 Respiratory Assessment Respiratory Assessment - cracking and fanning machine operator: Respiratory Tract Infection Hx - cracking and fanning machine operator Hx Respiratory Tract Infection No 10/24/24 09:44 STOP Sleep Apnea STOP Sleep Apnea - cracking and fanning machine operator: STOP Sleep Apnea - cracking and fanning machine operator Hx Hypertension No 10/24/24 09:44 Hx Sleep Apnea No 10/24/24 09:44 CPAP BIPAP Do you snore loudly (louder No 10/24/24 09:44 than talking or can be heard Do you often feel tired/ No 10/24/24 09:44 fatigued/ sleepy during daytime? Has anyone observed you stop No 10/24/24 09:44 breathing during sleep? STOP Results Negative 10/24/24 09:44 QUESTION #5 FULL TEXT : Do you snore loudly (louder than talking or can be heard through closed doors)? 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 Specify any problems Hx of Preganancy in last 3 No 10/24/24 09:44 Months Nurse Filling Out Transfusion VCHRISTIN 10/24/24 09:44 & Questions: Date: 10/24/24 10/24/24 09:44 Time: 09:45 10/24/24 09:44 Patient unable to answer at this time (ie. 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: /Reproductive Hx- cracking and fanning machine operator Hx Now No 10/24/24 09:44 Gestational Age (in weeks): EDC: Hx Hx Para Hx Section SAB No 10/24/24 09:44 Active Medications Active Medications: Current Medications Generic Name Dose Route Start Last Admin Trade Name Freq PRN Reason Stop Dose Admin Lactated Ringer's 1,000 mls @ 15 mls/hr 11/23/24 12:30 IV .Q48H PIA PFSH Medical History Normal Holter exam Cardiology follow-up encounter History of CHF (congestive heart failure) Leukocytosis Dilated pancreatic duct Hypertension Severe pulmonary hypertension History of hypertrophic cardiomyopathy Acute systolic congestive heart failure, NYHA class 3 Leukocytosis Cancer History of steroid therapy Easy bruising Migraine headache History of hiatal hernia History of ulceration History of IBS Abdominal bloating Stomach pain Nausea & vomiting Shortness of breath on exertion Smoker History of echocardiogram Chest pain Abdominal pain Pulmonary embolism Endometrial cancer 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 Ovarian cancer GERD (gastroesophageal reflux disease) Insomnia Anxiety Collapsed lung History of blood clots Asthma Breast cancer Pacemaker ICD (implantable cardioverter-defibrillator) in place Hypertrophic cardiomyopathy Home Medications ?Medication ?Instructions ?Recorded ?Last Taken ?Type alprazolam 0.5 mg tablet 0.5 mg PO BID ANXIETY 11/13/21 09/11/24 History zolpidem 10 mg tablet 10 mg PO QHS SLEEP 11/13/21 09/10/24 History sucralfate 1 gram tablet (Carafate) 1 g PO BIDCM GERD 07/10/24 09/10/24 History metoprolol succinate 25 mg 25 mg PO QDAY HEART 08/08/24 09/10/24 History tablet,extended release 24 hr pantoprazole 40 mg tablet,delayed 40 mg PO BID GERD 08/11/24 09/10/24 History release spironolactone 25 mg tablet 25 mg PO DAILY WATER PILL 08/20/24 09/10/24 History empagliflozin 10 mg tablet 10 mg PO QDAY 10/12/24 10/23/24 History (Jardiance) buprenorphine 10 mcg/hour weekly 1 patch topical QWEEK 10/17/24 Unknown History transdermal patch furosemide 20 mg tablet (Lasix) 20 mg PO QDAY PRN edema 10/17/24 Unknown History Allergy/AdvReac Type Severity Reaction Status Date / Time gabapentin (From Neurontin) Allergy Severe Anaphylaxis Verified 11/23/24 12:37 morphine Allergy Mild Hives Verified 11/23/24 12:37 codeine Allergy Hives Verified 11/23/24 12:37 erythromycin base Allergy PT UNSURE Verified 11/23/24 12:37 OF REACTION Fish Containing Products Allergy Other Verified 11/23/24 12:37 levofloxacin Allergy PT UNSURE Verified 11/23/24 12:37 OF REACTION shellfish derived Allergy Other Verified 11/23/24 12:37 tramadol Allergy Hives Verified 11/23/24 12:37 trimethobenzamide (From Allergy Other Verified 11/23/24 12:37 Tigan) acetaminophen (From Vicodin) AdvReac Other Verified 11/23/24 12:37 hydrocodone (From Vicodin) AdvReac Other Verified 11/23/24 12:37 metoclopramide (From Reglan) AdvReac Other Verified 11/23/24 12:37 Family History Father Heart disease Idiopathic hypertrophic subaortic stenosis, hypertrophic obstructive cardiomyopathy, congestive heart failure Mother Breast cancer DVT (deep venous thrombosis) Sister Hypertrophic obstructive cardiomyopathy heart transplant at age 34 Cancer Brain, breast, and colon Grandfather Heart disease at age 45 Grandmother CVA (cerebral vascular accident) age 43 Surgical History History of esophagogastroduodenoscopy (EGD) History of ERCP Presence of implantable cardioverter-defibrillator (ICD) History of cardiac catheterization History of oophorectomy History of cervical polypectomy History of colonoscopy History of tubal ligation History of mastectomy History of cholecystectomy Hx of appendectomy Social History household members: spouse and family housing: house current occupational status: employed Smoking Status: Current every day smoker tobacco type: cigarettes how long ago did patient quit smokin months ago alcohol intake: former substance use type: does not use caffeine: Yes Prior Cardiac Testing/Procedures Prior Cardiac Testing/Procedures: Echocardiogram ([facility] [address] [facility] [place] [address] Echo Complete 07/21/24 1046 MR#: [id number] Acct: [id number] Name: SANDRA GARDNER Rep #: [id number] : 1980 43 From: Saman Clay MD Attending Dr: Dr. Willian Mccarthy) and Cardiac Angiogram Addt'l Information Additional Findings: non spec intra vent abn, sr, non spec T wave abn Review of Systems (Anesthesia) ROS Narrative System reviewed and no additional complaints, except as documented.
[2024-11-23] MEDS: Lactated Ringers 1,000 ML 15 ML IV (12:45)
--- NOTE | 2024-11-23 13:15 | FLU_PTH ---
PATIENT: SANDRA GARDNER LOC: EN U#:[id number] AGE/SX: 44/F ROOM: RE11/23/[address]: Dr. Quang Myles DO : 1980 BED: DIS: 11/23/2024 SPEC #: [id number] RECD: 11/23/24 14:59 STATUS: AGUSTINA BENITO #: [id number] NASH: 11/23/24 13:[address]: Quang Myles DEPT: CYTOLOGY RECD BY: Nick Mcfarlane ENTERED: 11/26/24 13:49 SP TYPE: Fluid OTHR DR: Dr. Dex Wilkinson MD Tissues: A - Biliary tract, NOS B - Pancreatic duct, NOS Procedures: Special Stain Group II Surgery Specimen Level IV Cytospin Fluid HEADER OPERATION: ERCP with stent removal PRE-OP DIAGNOSIS: Status post ERCP, history of biliary stent insertion, choledocholithiasis TISSUE SUBMITTED: A- Biliary stent for cytology, B- Pancreatic stent for cytology DIAGNOSIS CYTOLOGY A. Biliary stent (cytospin, cell block): - Essentially acellular specimen with fungal organisms present. B. Pancreatic stent (cytospin, cell block): - No malignant cells identified (scant cellularity). - Fungal organisms present. CYTOLOGY STUDY Slides are reviewed. CYTOLOGY GROSS A. Received is 10cm blue stent ml with <0.2 pale-yellow with particles labeled with the patient's name and and designated per the requisition as Biliary stent. Submitted for cytology and cell block preparation. B. Received is 10cm blue stent with <0.2 ml of colorless fluid with particles labeled with the patient's name and and designated per the requisition as Pancreatic stent. Submitted for cytology and cell block preparation. Mr 11/26/2024 CPT: 08044 [id number]
--- NOTE | 2024-11-23 13:32 | HP.PCM_ITS ---
HPI - General General Date of Admission: 11/23/24 Date of Service: 11/23/24 Chief Complaint: Biliary stent removal HPI Narrative SANDRA GARDNER, is a 44 F who presents with the Chief Complaint: abd pain [facility] 07.03.24 with upper abd pain with associated vomiting. Past surgical hx of cholecystectomy, appendectomy, oophorectomy and tubal ligation. CT abd/pelvis 07.01.24 Subtle wall thickening of the distal and terminal ileum with hyperenhancement of the wall, suspicious for inflammatory bowel disease, please correlate clinically. Hepatomegaly.Suspected pelvic congestion. Small pelvic free fluid. Small bilateral pleural effusion with atelectasis. BGI established 07.03.24 with chronic abd pain. EGD 07.12.24; - Normal esophagus. - Acute gastritis with hemorrhage. Biopsied. - Erythematous duodenopathy. Biopsied. Colonoscopy 07.12.24 - The rectum, sigmoid colon, descending colon, splenic flexure, transverse colon, hepatic flexure, ascending colon and recto-sigmoid colon are normal. Biopsied. - Congested mucosa in the terminal ileum. Biopsied. - The examined portion of the ileum was normal. Biopsied. OV 08.08.24 Continued abd pain. MRCP ordered. May need ERCP to evaluation for sphincter of Oddi syndrome, cholelithiasis and ampullary lesion. [facility] ED 08.11.24 [facility] admission 08.21.24-08.24.24 with abd pain. Work up showing worsening elevation in alk phos, normal bili and normal lipase. Admitted for ERCP. ERCP 08.21.24 - Biliary papillary stenosis, indeterminate. - A single localized biliary stricture was found in the lower third of the main bile duct. - The patient has had a cholecystectomy. - Mild dilatation of the the pancreatic duct in the genu of the pancreas was found. 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 - A pancreatic obstruction was found in the genu of the pancreas. - Choledocholithiasis was found. Complete removal was accomplished by biliary sphincterotomy and balloon extraction. - A single pancreatic stone was found. - A biliary sphincterotomy was performed. - The biliary tree was swept. - Cells for cytology obtained in the lower third of the main duct. - One temporary stent was placed into the common bile duct. - A pancreatic sphincterotomy was performed. - The biliary tree was swept. - One temporary stent was placed into the ventral pancreatic duct. - Cells for cytology obtained in the ventral pancreatic duct in the head of the pancreas. - No specimens collected. MRCP 6.16.25 1. Minimal bilateral pleural effusions. 2. Passive atelectatic airspace disease of the lower lobes. . Mild cardiomegaly. 4. Hepatomegaly with hepatic steatosis. 5. Pneumobilia in the left hepatic lobe. 6. Prior cholecystectomy. . Unremarkable stents in the common bile and pancreatic ducts. . Mild edema of the pancreatic head and uncinate process, possibly mild changes of acute pancreatitis. Please correlate with lipase value. 9. Mild diffuse thickening of the stomach, probably gastritis. . Minimal perihepatic free fluid. Pain management; recent celiac nerve block. Did not help with pain [facility] admission 7.2.25-7.4.25 CT abd/pelvis 7.1.25;Basilar atelectasis. Mildly enlarged heart. Hepatomegaly and diffuse hepatic steatosis. Correlate for possible hepatitis. Status post cholecystectomy. Biliary stent in good position. Biliary air, likely iatrogenic. Pancreatic stent. No acute pancreatic pathology. Unremarkable spleen, adrenal glands, and kidneys. No hydronephrosis. Normal bladder. Normal uterus. Distended pelvic veins, correlate for pelvic congestion syndromeNo retroperitoneal or pelvic adenopathy. No free air. Status post appendectomy. Multiple diverticula. No acute large bowel findings. Lumbar spine scoliosis. No acute abdominal wall findings. CT abd/pelvis 7.2.25 . No significant interval change. The biliary and pancre atic stents are in unchanged position, and there is trace left pneumobilia which is also unchanged. 2. Heterogeneous enhancement of the mildly enlarged liver, without discrete lesion. Differential again includes hepatitis, hepatic fibrosis, or transient hepatic attenuation differences (GIL), amongst other etiologies. Correlate with laboratory analysis. 3. Trace perihepatic ascites and small volume of pelvic free fluid. OV 7.8.25 Pt here today for f/u after hospital admission. Pt was hospitalized with abd pain after celiac nerve block. Pt also with Hx of hypertrophic cardiomyopathy. She feels she is having increased swelling and sob. [facility] Medical History Normal Holter exam Cardiology follow-up encounter History of CHF (congestive heart failure) Leukocytosis Dilated pancreatic duct Hypertension Severe pulmonary hypertension History of hypertrophic cardiomyopathy Acute systolic congestive heart failure, NYHA class 3 Leukocytosis Cancer History of steroid therapy Easy bruising Migraine headache History of hiatal hernia History of ulceration History of IBS Abdominal bloating Stomach pain Nausea & vomiting Shortness of breath on exertion Smoker History of echocardiogram Chest pain Abdominal pain Pulmonary embolism Endometrial cancer 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 Ovarian cancer GERD (gastroesophageal reflux disease) Insomnia Anxiety Collapsed lung History of blood clots Asthma Breast cancer Pacemaker ICD (implantable cardioverter-defibrillator) in place Hypertrophic cardiomyopathy Home Medications ?Medication ?Instructions ?Recorded ?Last Taken ?Type alprazolam 0.5 mg tablet 0.5 mg PO BID ANXIETY 09/11/24 History zolpidem 10 mg tablet 10 mg PO QHS SLEEP 11/13/21 09/10/24 History sucralfate 1 gram tablet (Carafate) 1 g PO BIDCM GERD 07/10/24 09/10/24 History metoprolol succinate 25 mg 25 mg PO QDAY HEART 5 11/22/24 History tablet,extended release 24 hr pantoprazole 40 mg tablet,delayed 40 mg PO BID GERD 09/10/24 History release spironolactone 25 mg tablet 25 mg PO DAILY WATER PILL 08/20/24 09/10/24 History empagliflozin 10 mg tablet 10 mg PO QDAY 10/12/2410/12 History (Jardiance) buprenorphine 10 mcg/hour weekly 1 patch topical QWEEK 10/17/24 Unknown History transdermal patch furosemide 20 mg tablet (Lasix) 20 mg PO QDAY PRN rosario a 10/17/24 Unknown History Allergy/AdvReac Type Severity Reaction Status Date / Time gabapentin (From Neurontin) Allergy Severe Anaphylaxis Verified 11/23/24 12:37 morphine Allergy Mild Hives Verified 11/23/24 12:37 codeine Allergy Hives Verified 11/23/24 12:37 erythromycin base Allergy PT UNSURE Verified 11/23/24 12:37 OF REACTION Fish Containing Products Allergy Other Verified 11/23/24 12:37 levofloxacin Allergy PT UNSURE Verified 11/23/24 12:37 OF REACTION shellfish derived Allergy Other Verified 11/23/24 12:37 tramadol Allergy Hives Verified 11/23/24 12:37 trimethobenzamide (From Allergy Other Verified 11/23/24 12:37 Tigan) acetaminophen (From Vicodin) AdvReac Other Verified 11/23/24 12:37 hydrocodone (From Vicodin) AdvReac Other Verified 11/23/24 12:37 metoclopramide (From Reglan) AdvReac Other Verified 11/23/24 12:37 Family History Father Heart disease Idiopathic hypertrophic subaortic stenosis, hypertrophic obstructive cardiomyopathy, congestive heart failure Mother Breast cancer DVT (deep venous thrombosis) Sister Hypertrophic obstructive cardiomyopathy heart transplant at age 34 Cancer Brain, breast, and colon Grandfather Heart disease at age 45 Grandmother CVA (cerebral vascular accident) age 43 Surgical History History of esophagogastroduodenoscopy (EGD) History of ERCP Presence of implantable cardioverter-defibrillator (ICD) History of cardiac catheterization History of oophorectomy History of cervical polypectomy History of colonoscopy History of tubal ligation History of mastectomy History of cholecystectomy Hx of appendectomy Social History household members: spouse and family housing: house current occupational status: employed Smoking Status: Current every day smoker tobacco type: cigarettes how long ago did patient quit smokin months ago alcohol intake: former substance use type: does not use caffeine: Yes ROS Constitutional Constitutional: Denies fatigue, fever(s), poor appetite, weight gain or weight loss Gastrointestinal Gastrointestinal: Denies belching, bloating, change in bowel habits, change in stool character, chewing difficulty, coffee ground emesis, constipation, cramping, diarrhea, dyspepsia, dysphagia, early satiety, excessive flatus, fecal incontinence, heartburn, hematemesis, hematochezia, hemorrhoids, loose stools, melena, nausea, odynophagia, rectal bleeding, tenesmus, vomiting or weight changes Vital Signs Vital Signs Vital Signs: 11/23/24 12:38 11/23/24 12:42 Temperature 97.8 F Temperature Source Temporal Pulse Rate 87 Respiratory Rate 18 Respiratory Pattern Normal Blood Pressure 123/81 H Blood Pressure Mean 95 Blood Pressure Source Monitor Blood Pressure Position Semi-Fowlers Blood Pressure Location Right Arm Pulse Ox 98 Oxygen Delivery Method Room Air Weight Weight: 127 lb 6.835 oz Body Mass Index (BMI) 21.9 Physical Exam Const alert, oriented x3, no apparent distress and healthy appearing General Appearance: cooperative GI normal to inspection, nondistended, normoactive bowel sounds, soft to palpation, non-tender and non-distended Percussion: normal to percussion Rectal Exam: deferred Assessment & Plan Assessment/Plan (1) S/P ERCP: (2) History of biliary stent insertion: (3) Choledocholithiasis: PLAN: Assessment and Plan Assessment and Plan (1) Chronic abdominal pain: Status: Chronic Plan: Sandra is a 44 yo female pt here today for hospital f/u for abdominal pain. Pt has had work up including ERCP, MRCP, ABD CT, blood work, and stool testing. ERCP with biliary stricturing, dilate pancreatic duct and cholelithiasis Stents placed. MRCP showing possible inflammation in the pancreas but lipase normal. She is established with pain management for her pain but has had no relief with a celiac nerve block. She has f/u in one week with Dr. Dennison. Pt also with hypertrophic cardiomyopathy following with tax manager cpa at . SHe endorses worsening sob and swelling. I advised she call her tax manager cpa or present to the ED if symptoms persist. SHe was scheduled for ERCP with stent pull. I have started her on hyoscyamine daily. She endorses abnormal uterine bleeding with no period for 17 years until recently. I have referred to OBGYN regarding this. -ERCP scheduled -f/u with Dr. 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
--- NOTE | 2024-11-23 14:45 | RAD_ITS ---
PROCEDURE: ERCP BILIARY/PANCREAS 11/23/2024 REASON FOR EXAM: ERCP TECHNIQUE: Procedure Code: RADERCP Modality: DX Procedure: ERCP BILIARY/PANCREAS. Fluoroscopic services provided for ERCP. Fluoroscopy time: 9.5 seconds. Radiation dose: 1.39 mGy. COMPARISON: None FINDINGS: ERCP was performed by the bi application developer. A balloon catheter was placed into the common bile duct. A biliary stent was placed. RAD/ERCP Biliary/Pancreas IMPRESSION: Common bile duct stent placement following balloon placement in the common bile duct. Reading Location: [id number]
--- NOTE | 2024-11-23 14:57 | OP.ERCP_ITS ---
Patient Name: Michelle Mitchell Procedure Date: 11/23/2024 1:47 PM Date of : 1980 Age: 44 Procedure: ERCP Indications: Abdominal pain of suspected pancreatic origin, Abdominal pain of suspected biliary or pancreatic origin, Bile duct stone(s), Chronic recurrent pancreatitis, Biliary stent removal, Pancreatic stent removal Providers: Quang Myles DO Referring MD: Dex Wilkinson Md Medicines: Monitored Anesthesia Care Patient Profile: This is a 44 year old female. Refer to note in patient chart for documentation of history and physical. Patient has symptoms of chronic epigastric abdominal pain. Complications: No immediate complications. Procedure: Pre-Anesthesia Assessment: - Prior to the procedure, a History and Physical was performed, and patient medications and allergies were reviewed. The patient is competent. The risks and benefits of the procedure and the sedation options and risks were discussed with the patient. All questions were answered and informed consent was obtained. Patient identification and proposed procedure were verified by the physician in the pre-procedure area. Mental Status Examination: alert and oriented. Airway Examination: normal oropharyngeal airway and neck mobility. Respiratory Examination: clear to auscultation. CV Examination: normal. Prophylactic Antibiotics: The patient does not require prophylactic antibiotics. Prior Anticoagulants: The patient has taken no 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 or antiplatelet agents except for NSAID medication. ASA Grade Assessment: II - A patient with mild systemic disease. After reviewing the risks and benefits, the patient was deemed in satisfactory condition to undergo the procedure. The anesthesia plan was to use monitored anesthesia care (MAC). Immediately prior to administration of medications, the patient was re-assessed for adequacy to receive sedatives. The heart rate, respiratory rate, oxygen saturations, blood pressure, adequacy of pulmonary ventilation, and response to care were monitored throughout the procedure. The physical status of the patient was re-assessed after the procedure. After obtaining informed consent, the scope was passed under direct vision. Throughout the procedure, the patient's blood pressure, pulse, and oxygen saturations were monitored continuously. The Duodenoscope was introduced through the mouth, and advanced to the duodenum and used to inject contrast into the bile duct and ventral pancreatic duct. The ERCP was accomplished without difficulty. The patient tolerated the procedure well. Scope In: Scope Out: 2:40:47 PM Findings: A biliary stent was visible on the otr owner operator film. A pancreatic stent was visible on the otr owner operator film. The upper GI tract was traversed under direct vision without detailed examination. The upper GI tract was normal. One stent was removed from the biliary tree using a Raptor grasping device and sent for cytology. The stent was found to be partially occluded via the water column test. One stent was removed from the biliary tree using a snare and sent for cytology. The stent was found to be patent via the water column test. The ventral pancreatic duct was deeply cannulated with the short-nosed traction sphincterotome. Contrast was injected. Opacification of the entire pancreatic ductal system was successful. The maximum diameter of the ducts was 3 mm. The [Site] was normal. A long 0.025 inch Jagwire was passed into the ventral pancreatic duct. A long 0.025 inch Jagwire was passed into the biliary tree. The short-nosed traction sphincterotome was passed over the guidewire and the bile duct was then deeply cannulated. Contrast was injected. Opacification of the entire opacified area and entire biliary tree was successful. The maximum diameter of the ducts was 10 mm. The lower third of the main bile duct contained one stone, which was 6 mm in diameter. The main bile duct was diffusely dilated, with a stone causing an obstruction. The largest diameter was 10 mm. A cholecystectomy had been performed. A 5 mm biliary sphincterotomy was made with a traction (standard) sphincterotome using ERBE electrocautery. There was no post-sphincterotomy bleeding. The biliary tree was swept with a 12 mm balloon starting at the upper third of the main bile duct, middle third of the main bile duct, lower third of the main duct, bifurcation, left intrahepatic duct(s) and left main hepatic duct. Sludge was swept from the duct. All stones were removed. Preparations were made for cholangiography using balloon occlusion technique. The previous cannulation device was exchanged over the guidewire for a balloon-tipped catheter. The balloon-tipped catheter was then advanced into the common hepatic duct. The balloon was inflated to 12 mm in size. Contrast was then injected into the biliary tree and opacified the left and right hepatic ducts and all intrahepatic branches. Impression: - Normal upper GI tract. - One stent was removed from the biliary tree. - One stent was removed from the biliary tree. Procedure Code(s): --- Professional --- 76376, Endoscopic retrograde cholangiopancreatography (ERCP); with removal of foreign body(s) or stent(s) from biliary/pancreatic duct(s) 12308, Endoscopic retrograde cholangiopancreatography (ERCP); with removal of calculi/debris from biliary/pancreatic duct(s) 01084, Endoscopic retrograde cholangiopancreatography (ERCP); with sphincterotomy/papillotomy CPT copyright 2021 [employer]. All rights reserved. The codes documented in this report are preliminary and upon 3rd pressman review may be revised to meet current compliance requirements. Quang Myles DO 11/23/2024 2:57:03 PM This report has been signed electronically. Number of Addenda: 0 Note Initiated On: 11/23/2024 1:47 PM
--- NOTE | 2024-11-23 14:57 | OP.PROVAT_ITS ---
11/23/2024 Dex Wilkinsno Md Re : ERCP procedure for Michelle Mitchell Dear Jaja This procedure was performed on Saturday, November 23, 2024. My impressions and recommendations are as follows: Impressions : - Normal upper GI tract. - One stent was removed from the biliary tree. - One stent was removed from the biliary tree. Recommendations : My findings are described in the full procedure note, which is enclosed. If I can be of further assistance, please feel free to contact me at . Sincerely, Quang Myles, 11/23/2024 2:57:03 PM This report has been signed electronically.
--- NOTE | 2024-11-23 15:00 | PCM.POST.ANE ---
Anesthesia: Postop Eval I Current Vital Signs Temperature: 97.6 F Pulse Rate: 82 Blood Pressure: 104/55 Respiratory Rate: 16 Pulse Ox: 100 Oxygen Delivery Method: Room Air Assessment Airway patent: Yes Spontaneous unlabored respirations: Yes Mental status: Awake nausea: No Vomiting: No Anesthesia Complication: No Fluid Hydration Crystalloid volume administer (ml): 400 Total IV fluid infused: 400 Progress Note Anesthesia document: Postop Eval 1 completed: Yes
--- NOTE | 2024-11-23 15:45 | PCM.POSTANE2 ---
Anesthesia Postop Eval I Sum Postop Eval Completion status Anesthesia document: Postop Eval 1 completed: Yes Anesthesia Postop Eval I Summary Anesthesia Postop Eval I Summary: Anesthesia Postop Eval I: Assessment Summary Airway patent Yes 11/23/24 15:01 [email or web address] Spontaneous unlabored Yes 11/23/24 15:01 [email or web address] respirations Mental status Awake 11/23/24 15:01 [email or web address] nausea No 11/23/24 15:01 [email or web address] Vomiting No 11/23/24 15:01 [email or web address] Anesthesia Postop Eval I: Fluid Summary Crystalloid volume administer 400 11/23/24 15:01 [email or web address] (ml) Colloids volume administered ( ml) Blood Product volume administered (ml) Total IV fluid infused 400 11/23/24 15:01 [email or web address] Anesthesia Postop Eval I: Summary Notes Anesthesia Complication No 11/23/24 15:01 [email or web address] Anesthesia Complication Comment: Post-operative progress note Anesthesia: Postop Eval II Evaluation Mental status: Awake Pain Level: 0 nausea: No Vomiting: No
== END 2024-11-23 15:57 | disposition home or self-care (01) ==
LOC: EN 12:12 → AC 12:14
PROVIDERS: PCP Family Medicine; Referring Provider Family Medicine; Visit Provider Internal Medicine Gastroenterology
PROC: (CPT 43260; principal; 2024-11-23 12:55)
DX: Z46.59 Encounter for fitting and adjustment of other gastrointestinal appliance and device (principal); I11.0 Hypertensive heart disease with heart failure; I50.21 Acute systolic (congestive) heart failure; K21.9 Gastro-esophageal reflux disease without esophagitis; F17.210 Nicotine dependence, cigarettes, uncomplicated; Z79.899 Other long term (current) drug therapy; J45.909 Unspecified asthma, uncomplicated; G89.29 Other chronic pain; K80.51 Calculus of bile duct without cholangitis or cholecystitis with obstruction; Z90.49 Acquired absence of other specified parts of digestive tract
CPT/HCPCS: 43262; 43264; 43275; 74330; 76000; 88108; 88305; 88313; 93005; J2405

== ENCOUNTER 2024-11-25 14:41 | Emergency (ER) | payer OTHER, SELFPAY ==
[2024-11-25] VITALS (7 sets, daily range): BP systolic 113–141; BP diastolic 57–89; PULSE 75–100; RESP 14–26; TEMP 36.6–37.1; O2SAT 93–100; BMI 21.9
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
--- NOTE | 2024-11-25 15:02 | CT_ITS ---
PROCEDURE: ABDOMEN/PELVIS W IV CONT ONLY 11/25/2024 REASON FOR EXAM: EPIGASTRIC ABDOMINAL PAIN, RECENT STENT REMOVAL. History of CHF, hiatal hernia, IBS, cervical cancer, breast cancer, cholecystectomy, appendectomy, tubal ligation, ERCP on 11/23/2024, oophorectomy, and mastectomy. TECHNIQUE: Procedure Code: [id number] Modality: CT Procedure: ABDOMEN/PELVIS W IV CONT ONLY Coronal and Sagittal reconstruction series were provided. CONTRAST: Isovue 370 VOLUME: 75 mL One or more dose reduction techniques were used (e.g., Automated exposure control, adjustment of the mA and/or kV according to patient size, use of iterative reconstruction technique. RADIATION DOSE SUMMARY: CTDlvol: 6.06 mGy DLP: 284.64 mGycm FINDINGS: LUNG BASES: Mild cardiomegaly with right ventricular pacemaker lead. Interlobular septal and peribronchovascular interstitial thickening bilaterally. Small ground-glass opacities bilaterally. Atelectasis/scarring in the lingula. LIVER: Enlarged measuring 18.4 cm in length. Mild contour nodularity of the inferior right hepatic lobe. No focal lesion. GALLBLADDER: Prior cholecystectomy. BILE DUCTS: No ductal dilation. PANCREAS: Unremarkable. SPLEEN: Unremarkable. ADRENAL GLANDS: Unremarkable. KIDNEYS: Unremarkable. The kidneys enhance symmetrically. No hydronephrosis or hydroureter. STOMACH AND BOWEL: No obstruction or perforation. No wall thickening. No CT evidence of colitis or acute diverticulitis. APPENDIX: Surgically absent. RETRO/PERITONEUM: Mild pelvic fluid, possibly physiologic. No free air or fluid collections. LYMPH NODES: No lymphadenopathy. PELVIC ORGANS: Moderate-sized left pelvic varicosities. Otherwise, unremarkable as visualized. VASCULATURE: No aortic aneurysm. ABDOMINAL WALL AND SOFT TISSUES: Unremarkable. BONES: No fracture or suspicious osseous abnormality. Right L5 spondylolysis defect without spondylolisthesis. CT/Abdomen/Pelvis W IV Cont ONLY IMPRESSION: 1. Mild cardiomegaly with interstitial edema. 2. Small ground-glass lung opacities bilaterally, likely edema or infection. 3. Moderate left pelvic varicosities. Correlate clinically for signs of pelvi c congestion syndrome. 4. Hepatomegaly. Reading Location: [id number]
--- OUTSIDE RECORDS SUMMARY | 2024-11-25 15:15 | XMS RPT_ITS | CCD ---
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 Dex Wilkinson MD Primary Care Provider [...] Josep CINTRON, Dr. Coronado Other Provider Jana HEAD NURSE-C, Bogdan Pope Other Provider Xochitl Cole Other [...] Josep CINTRON, Dr. Coronado Other Provider Jana HEAD NURSE-C, Bogdan Pope Other Provider Xochitl Cole Other [...] Ric HAMLIN, Dr. Marroquin Admit Provider [phone] Dr. Lopez Larios DO Attending Provider Dr. Cleo Huerta MD Other Provider Dr. Lopez Larios DO Other Provider Ileana CINTRON, Dr. Taylor Roque Attending Provider Ileana CINTRON, Dr. Taylor Roque Other Provider [facility] B[facility]OP Referring Unavail able DEX WILKINSON Primary Care Unavailable CASE FONSECA Attending Unavailable CASE FONSECA Admitting Unavailable Ileana CINTRON, Dr. Taylor Roque Other Provider Ileana CINTRON, Dr. Taylor Roque Referring Provider Jaja CINTRON, Dr. Kowalski Primary Care Provider Umaña DO, Dr. Beauchamp Attending Provider Unav lori Sierra MD, Dr. Norman Attending Provider Rigo CINTRON, Dr. Norman Other Provider [phone] WILKINSON, DEX B Primary Care Unavailable BOO RODRIGUEZ Admitting Unavailable RISHABH EL Attending Unavailable Rigo CINTRON, Dr. Norman Referring Provider Sujatha Olea Attending Provider Unavailable DEEPIKA MAN Attending UnavailRADU Lizarraga Referring Unavailable WILKINSON, DEX B Primary Care Unavailable Wilkinson, Dex Primary Care Unavailable Bárbara Ureña Attending Unavailable Wilkinson, Dex Referring Unavailable Quang Myles Attending Unavailable Wilkinson, Dex Primary Care Unavailable Wilkinson, Dex Referring Unavailable Wilkinson, Dex Primary Care Unavailable Sujatha Olea Attending Unavailable Wilkinson, Dex Referring Unavailable Willian Ovalles Attending Unavailable Filemon Subramanian Consulting Unavailable Sergio Umaña Admitting Unavailable Wilkinson, Dex Primary Care Unavailable Mostafleonides Chetan Consulting Unavailable Obed, Saman Consulting Unavailable Augustin Potts Consulting Unavailable Don Victoria Consulting Unavailable Rosalio, [place] Consulting Unavailable Cleo Huerta Consulting Unavailable Mercy Bishop Consulting Unavailable Sarita Flores Consulting Unavailabl e Satti, Vincent Consulting Unavailable Raza Caratore Consulting Unavailable Jana GONSALES, Bogdan Pope Consulting Unavailable Xochitl Cole Consulting Unavail able Grover Guerra Consulting Unavailable Sergio Umaña Consulting Unavailable Willian Ovalles Consulting Unavailable Jose Francisco Santamaria Attending Unavailable Wilkinson, Dex Primary Care Unavailable Xochitl Cole Attending Unavail able Wilkinson, Dex Referring Unavailable Wilkinson, Dex Primary Care Unavailable Wilkinson, Dex Primary Care Unavailable Gage Sharma Attending Unavailabl e Wilkinson, Dex Primary Care Unavailable Quang Myles Attending Unavailable Wilkinson, Dex Referring Unavailable Sergio Umaña Consulting Unavailable Sergio Umaña Admitting Unavailable Wilkinson, Dex Primary Care Unavailable Emerson Sierra Attending Unavailable Nabor Frey Attending Unavailable Wilkinson, Dex Primary Care Unavailable FriendQuang Attending Unavailable Dex Wilkinson Referring Unavailable Wilkinson, Dex Primary Care Unavailable Wilkinson, Dex Primary Care Unavailable Bárbara Ureña Attending Unavailable Wilkinson, Dex Referring Unavailable Wilkinson, Dex Primary Care Unavailable FriendQuang Attending Unavailable Wilkinson, Dex Referring Unavailable Sergio Umaña Referring Unavailable Willian Colón Attending Unavailable Wilkinson, Dex Primary Care Unavailable Breann Loera Attending Unavailable Wilkinson, Dex Referring Unavailable Wilkinson, Dex Primary Care Unavailable ObedSaman sorenson Attending Unavailable Mercy Bishop Attending Unavailable Wilkinson, Dex Primary Care Unavailable RosalioJose Francisco virgen Attending Unavailable Wilkinson, Dex Primary Care Unavailable RosalioJose Francisco Attending Unavailable Wilkinson, Dex Primary Care Unavailable Bárbara Ureña Attending Unavailable Wilkinson, Dex Referring Unavailable RosalioJose Francisco Attending Unavailable Wilkinson, Dex Referring Unavailable Wilkinson, Dex Primary Care Unavailable Lopez Larios Consulting Unavailable Lopez Lraios Admitting Unavailable Wilkinson, Dex Primary Care Unavailable LuiamLaquitaa Mya Attending Unavailable Luiam, Taylor Mya Consulting Unavailable Luiam, Taylor Mya Referring Unavailable Quang Myles Attending Unavailable Sergio Umaña Consulting Unavailable Sergio Umaña Attending Unavailable Sergio Umaña Admitting Unavailable Wilkinson, Dex Primary Care Unavailable Sergio Umaña Attending Unavailable Wilkinson, Dex Primary Care Unavailable Mercy Bishop Attending Unavailable Wilkinson, Dex Referring Unavailable Lopez Larios Admitting Unavailable Lopez Larios Consulting Unavailable Wilkinson, Dex Primary Care Unavailable Kormelly, Taylor Mya Attending Unavailable Sergio Umaña Admitting Unavailable Willian Ovalles Attending Unavailable Filemon Subramanian Consulting Unavailable Wilkinson, Dex Primary Care Unavailable afleonides Chetan Consulting Unavailable Obed, Saman Consulting Unavailable Augustin Potts Consulting Unavailable Don Victoria Consulting Unavailable Rosalio, [place] Consulting Unavailable Cleo Huerta Consulting Unavailable Mercy Bishop Consulting Unavailable Sarita Flores Consulting UnavailVincent Darnell Consulting Unavailable Cliff Car Consulting Unavailable Jana HEAD NURSE, Bogdan Pope Consulting Unavailable Steffen PA, Xochitl Min Consulting Unavail able Grover Guerra Consulting Unavailable Sergio Umaña Consulting Unavailable Quang Myles Attending Unavailable Friend, Quang Referring Unavailable Wilkinson, Dex Primary Care Unavailable Friend, Quang Attending Unavailable Friend, Quang Referring Unavailable Wilkinson, Dex Primary Care Unavailable Rigo, Emerson Attending Unavailable Rigo, Emerson Consulting Unavailable Friend, Quang Attending Unavailable Rigo, Emerson Referring Unavailable Ric Lopez Attending Unavailable Friend, Quang Consulting Unavailable Friend, Quang Attending Unavailable Wilkinson, Dex Referring Unavailable Wilkinson, Dex Primary Care Unavailable Friend, Quang Attending Unavailable Friend, Quang Referring Unavailable Wilkinson, Dex Primary Care Unavailable Wilkinson, Dex Primary Care Unavailable Friend, Quang Attending Unavailable Friend, Quang Referring Unavailable Wilkinson, Dex Primary Care Unavailable Jose Francisco Santamaria Attending Unavailable Wilkinson, Dex Referring Unavailable Wilkinson, Dex Primary Care Unavailable Bimal Cortez Attending Unavailable Wilkinson, Dex Primary Care Unavailable Babar Wood Attending Unavailable Jaja CINTRON, Dr. Kowalski Primary Care Provider Dr. Dex Wilkinson MD Referring Provider [phone] Dr. Quang Myles DO Attending Provider Umaña DO, Dr. Beauchamp Admit Provider Unavail able Dr. Sergio Umaña DO Other Provider Unavail able Bárbara Mendez Attending Provider Rosalio CINTRON, Dr. Felton Attending Provider Dr. Mercy Bishop MD Attending Provider Dr. Quang Myles DO Other Provider RADU KAY Attending Unavailable WILKINSON, DEX B Primary Care Unavailable RADU KAY Referring Unavailable WILKINSON, DEX B Primary Care Unavailable RADU KAY Attending Unavailable WILKINSON, DEX B Primary Care Unavailable Allergies Allergy Classification Reported Allergen(s) Allergy Type Date of Onset Reaction(s) Facility (15 sources) acetaminophen / HYDROcodone; Translations: [HYDROCODONE-ACETAMI NOPHEN] Drug Allergy 01-31-[address] [facility] Repository (16 sources) azithromycin; Translations: [AZITHROMYCIN] Drug Allergy 10-20-19 07 Intolerance, Unknown [facility] Repository (20 sources) cucumber extract; Translations: [CUCUMBER] Drug Allergy 09-03-[address] [facility] Repository (7 sources) FLUoxetine; Translations: [FLUOXETINE HCL] Drug Allergy 11-08-19 14 Other: See Comments [facility] (20 sources) gabapentin; Translations: [GABAPENTIN] Drug Allergy 05-17-[address] [facility] Repository (7 sources) levoFLOXacin; Translations: [LEVOFLOXACIN IN D5W] Drug Allergy 04-05-19 14 Swelling, Itching [facility] Repository (4 sources) LORazepam; Translations: [LORAZEPAM] Drug Allergy 07-11-19 11 [facility], [facility] Repository (20 sources) morphine; Translations: [MORPHINE] Drug Allergy 09-15-[address] [facility] Repository (2 sources) ondansetron; Translations: [ONDANSETRON HCL (PF)] Drug Allergy 11-17-[address] [facility] Repository (7 sources) Shellfish; Translations: [SHELLFISH] Propensity to adverse reactions to food (disorder) 08-21-[address] [facility] Repository (20 sources) traMADol; Translations: [TRAMADOL] Drug Allergy 12-09-[address] [facility] (1 source) OTHER; Translations: [OTHER] Propensity to adverse reactions (disorder) 09-03-[address] [facility] Repository (7 sources) TRIMETHOBENZAMIDE-BE NZOCAINE; Translations: [TRIMETHOBENZAMIDE-B ENZOCAINE] Propensity to adverse reactions to drug (disorder) 09-23-[address] [facility] Repository (7 sources) FISH; Translations: [FISH] Propensity to adverse reactions to food (disorder) 08-21-[address] [facility] Repository (20 sources) Codeine; Translations: [codeine] Drug Allergy 11-03-19 22 Rash [facility] (20 sources) Erythromycin Drug Allergy 11-03-19 22 PT UNSURE OF REACTION [facility] (1 source) Penicillins Allergy to substance 11-03-19 22 PT UNSURE OF REACTION [facility] Work Phone: (20 sources) levoFLOXacin; Translations: [LEVOFLOXACIN] Drug Allergy 12-17-19 22 Unknown [facility] (18 sources) Acetaminophen Drug Allergy 07-02-19 Other [facility] (18 sources) HYDROcodone Drug Allergy 07-02-19 Other [facility] (18 sources) Metoclopramide Drug Allergy 07-02-19 Other [facility] (20 sources) Shellfish; Translations: [SHELLFISH DERIVED] Allergy to substance 07-02-19 Anaphylaxis [facility] (20 sources) trimethobenzamide; Translations: [TRIMETHOBENZAMIDE] Drug Allergy 07-02-19 Anaphylaxis [facility] (18 sources) Fish Containing Products Allergy to substance 07-02-19 Other [facility] (8 sources) FLUoxetine; Translations: [FLUOXETINE] Drug Allergy 08-16-19 Other [facility] Work Phone: (1 source) Acetaminophen Drug Allergy 10-25-19 [facility] Repository (1 source) Codeine Drug Allergy 10-25-19 [facility] Repository (1 source) HYDROcodone Drug Allergy 10-25-19 [facility] Repository (1 source) levoFLOXacin Drug Allergy 10-25-19 [facility] Repository (1 source) Metoclopramide Drug Allergy 10-25-19 [facility] Repository (1 source) trimethobenzamide Drug Allergy 10-25-19 [facility] Repository (1 source) Fish Containing Products Drug allergy (disorder) 10-25-19 [facility] Repository (1 source) erythromycin base Drug allergy (disorder) 10-25-19 [facility] Repository Medications Current Medications Medication Drug Class(es) Dates Sig (Normalized) Sig (Original) Acetaminophen (1 source) Start: 09-21-2024 take 1 tablet by mouth every four hours as needed acetaminophen (Tylenol) tablet 650 mg acetaminophen 325 mg / HYDROcodone bitartrate 5 mg oral tablet (1 source) Opioid Agonist Start: 11-13-2021 take 1 tablet by mouth every six hours Hydrocodone-Acetam inophen Active 1 TABLET PO EVERY 6 HOURS 12 3 November 13, 2021 168 hr buprenorphine 0.015 mg/hr transdermal system (1 source) Partial Opioid Agonist apply 1 dose transdermal route every week buprenorphine (Butrans) 15 mcg/hour patch Place 1 patch on the skin 1 (one) time per week. Active clindamycin 300 mg oral capsule (2 sources) Lincosamide Antibacterial Start: 11-02-2021 take 1 capsule by mouth every six hours Clindamycin Hcl (Cleocin Hcl) 300 mg capsule Active 300 MG PO EVERY 6 HOURS 40 November 02, 2021 12:00am dicyclomine hydrochloride 10 mg oral capsule (20 sources) Anticholinergic Start: 07-08-2024 End: 09-21-2024 take 1 capsule by mouth three times daily before mealtime dicyclomine (BENTYL) 10 mg capsule Take 1 capsule by mouth three times a day before meals. 90 capsule 07/08/2024 Active Start: 07-03-2024 End: 08-20-2024 docusate sodium 50 mg / sennosides, group home 8.6 mg oral tablet (3 sources) Start: 09-22-2024 End: 09-28-2024 take 1 tablet by mouth once daily at bedtime sennosides-docusate sodium (Pia-Colace) 8.6-50 mg tablet Indications: Other constipation Take 1 tablet by mouth once daily at bedtime for 5 days. 5 tablet 09/23/2024 09/28/2024 Active doxycycline hyclate 100 mg oral capsule (3 sources) Tetracyclin e-class Drug Start: 09-23-2024 End: 09-27-2024 take 1 capsule by mouth every twelve hours doxycycline (Vibramycin) 100 mg capsule Indications: Pneumonia Take 1 capsule (100 mg) by mouth every 12 hours for 4 days. Take with a full glass of water and do not lie down for at least 30 minutes after. 8 capsule 09/23/2024 09/27/2024 Active Start: 09-22-2024 take 100 mg by mouth every twelve hours at mealtime 100 mg, oral, Every 12 hours scheduled, First dose on Tue09/22/24 at 2100, Administer with meals to decrease GI upset; take with at least 8 ounces (large glass) of water, do not lie down for 30 minutes after., Suspected Indication (Select all that apply): Pneumonia, Type of Therapy: Empiric, Indications: Pneumonia empagliflozin 10 mg oral tab let (12 sources) Sodium-Glucose Cotransporter 2 Inhibitor Start: 10-12-2024 Start: 09-21-2024 10 mg, oral, D aily, First dose on Tue09/21/24 at 0900, Please hold this med 72 hours prior to an NPO event in duration of 12 hours or more. Start: 08-15-2024 End: 11-21-2025 take 1 tablet by mouth once daily empagliflozin (Jardiance) 10 mg tablet Indications: Cardiomyopathy, hypertrophic nonobstructive (Multi) Take 1 tablet by mouth once daily. 90 tablet 3 11/21/2024 11/21/2024 Discontinued (Reorder) 0.4 ml enoxaparin sodium 100 mg/ml prefilled syringe (1 source) Low Molecular Weight Heparin Start: 09-22-2024 inject 40 mg by subcutaneous injection once daily 40 mg, subcutaneous, Daily, First dose on Tue09/22/24 at 1200 furosemide 20 mg oral tablet (20 sources) Loop Diuretic Start: 10-12-2024 End: 10-17-2024 Start: 09-21-2024 take 40 mg intraveno usly every twelve hours 40 mg, intravenous, Every 12 hours, First dose on Tue09/21/24 at 1000 Start: 09-21-2024 End: 09-21-2024 40 mg, intravenous, Once, On Tue09/21/24 at 0105, For 1 dose Start: 07-26-2023 End: 11-01-2023 Start: 07-26-2023 End: 11-01-2023 hyoscyamine sulfate 0.125 mg disintegrating oral tablet (9 sources) Start: 09-22-2024 take 1 tablet by khris th every eight hours as needed Start: 09-18-2024 hyoscyamine (A naspaz, Levsin) 0.125 mg tablet 1 tablet (0.125 mg). 09/18/2024 Active Start: 09-18-2024 End: 10-24-2024 ibuprofen 600 mg oral tablet (1 source) Nonsteroidal Anti-inflammatory Drug Start: 11-13-2021 take 600 mg by mouth every six hours Ibuprofen Active 600 MG PO EVERY 6 HOURS November 13, 2021 12:00am magnesium hydroxide 80 mg/ml oral suspension (1 source) Start: 09-21-2024 take 30 mL by mouth every twenty-four hours as needed magnesium oxide 400 mg oral tablet (1 source) Start: 09-21-2024 take 1 tablet by mouth once daily 1 tablet (400 mg of magnesium oxide), oral, Daily, First dose on Tue09/21/24 at 0900 24 hr metoprolol succinate 25 mg extended release oral tablet (20 sources) beta-Adrenergic Krishan Start: 07-27-2024 End: 11-21-2024 take 1 tablet by mouth once daily metoprolol succinate XL (Toprol-XL) 25 mg 24 hr tablet Indications: Cardiomyopathy, hypertrophic nonobstructive (Multi) , History of pulmonary embolism Take 1 tablet (25 mg) by mouth once daily. Do not crush or chew. 90 tablet 3 11/21/2024 Active ondansetron ODT (Zofran-ODT) disintegrating tablet 4 mg (1 source) Start: 09-21-2024 take 1 tablet by mouth every eight hours as needed ondansetron ODT (Zofran-ODT) disintegrating tablet 4 mg pantoprazole 40 mg delayed release oral tablet [...] 4 pm. 60 tablet 2 07/08/2024 Active psyllium 3400 mg powder for oral suspension (9 sources) Start: 07-08-2024 take 1 dose by mouth twice daily psyllium (METAMUCIL) 3.4 gram packet Take 1 packet by mouth two times a day. 60 packet 5 07/08/2024 Active take 1 dose by mouth once daily psyllium (Metamucil) 3.4 gram packet Take 1 packet by mouth once daily. Active spironolactone 25 mg oral tablet (16 sources) Aldosterone Antagonist Start: 08-15-2024 End: 08-15-2025 sucralfate 1000 mg oral tablet (20 sources) Aluminum Complex Start: 07-08-2024 varenicline (1 source) Partial Cholinergic Nicotinic Agonist Start: 11-21-2024 End: 02-19-2025 varenicline tartrate (Chantix KENNETH) 0.5 mg (11)- 1 mg (42) tablet Indications: Tobacco use Use as directed on package instructions, try to quit smoking after 1 week. 42 each 1 11/21/2024 02/19/2025 Active zolpidem tartrate 5 mg oral tablet (20 sources) gamma-Aminobutyric Acid-ergic Agonist Start: 09-21-2024 take 10 mg by mouth once daily as needed for sleep 10 mg, oral, Nightly PRN, sleep, Starting on Tue09/21/24 at 0654 Start: 11-13-2021 (6 sources) Start: 10-17-2024 Start: 10-12-2024 End: 10-24-2024 Start: 10-12-2024 Completed/Discontinued Medications Medication Drug Class(es) Dates Sig [...] December 26, 2022 August 16, 2023 11:22am [id number] 200 actuat albuter ol 0.09 mg/actuat metered dose inhaler (20 sources) beta2-Adrenergic Agonist Start: 10-12-2024 End: 10-24-2024 Start: 07-26-2023 End: 08-11-2024 take 2 puff(s) by in halation every six hours for wheezing albuterol (Ventolin HFA) 90 mcg/actuation inhaler Inhale 2 puffs every 6 hours [...] / clavula mayra 125 mg oral tablet (19 sources) Penicillin-class Antibacterial Start: 11-02-2023 End: 05-12-2024 [...] 1530, Intraprocedure celecoxib 200 mg oral capsule (20 sources) Nonsteroidal Anti-inflammatory Drug Start: 08-08-2024 End: 08-11-2024 1 ml fentaNYL 0.05 mg/ml injection (1 source) Opioid Agonist Start: 07-25-2024 End: 07-25-2024 INTRAVENOUS, X (OR/PROCEDURE) PRN, Starting on Tue07/25/24 at 1535, Until Tue07/25/24 at 1553, Intraprocedure 0.5 ml HYDROmorphone hydrochloride 1 mg/ml prefilled syringe (5 sources) Opioid Agonist Start: 09-22-2024 End: 09-22-2024 0.5 mg, intravenous, Once, On 09/22/24 at 2115, For 1 dose Start: 09-22-2024 take 0.2 mg intraven ously every six hours as needed 0.2 mg, intravenous, Every 6 hours PRN, pain moderate (4-6), first line, Starting on 09/22/24 at 1017 Start: 09-21-2024 0.5 mg, intrav enous, Every 3 hours PRN, pain severe (7-10), first line, Starting on Tue09/21/24 at 0547 Start: 09-21-2024 End: 09-21-2024 0.5 mg, intravenous, Once, O n Tue09/21/24 at 0240, For 1 dose Start: 09-21-2024 End: 09-21-2024 0.5 mg, intravenous, Once, O n Tue09/21/24 at 0000, For 1 dose iohexol (OMNIPaque) 350 mg iodine/mL solution 68 mL (1 source) Start: 09-21-2024 End: 09-21-2024 68 mL, intravenous, Once in imaging, Starting on Tue09/21/24 at 0109, For 1 dose 1 ml ketorolac tromethamine 30 mg/ml injection (18 sources) Nonsteroidal Anti-inflammatory Drug, Cyclooxygenase Inhibitor Start: 09-22-2024 End: 09-22-2024 15 mg, intravenous, Once, On 09/22/24 at 1530, For 1 dose Start: 07-03-2024 End: 07-20-2024 lidocaine 50 mg/ml rectal cream (7 sources) Antiarrhythmic, Amide Local Anesthetic Start: 09-13-2024 End: 10-24-2024 Start: 07-25-2024 End: 07-25-2024 X (OR/PROCEDURE) PRN, Starti ng on Tue07/25/24 at 1530, Until Tue07/25/24 at 1530, Intraprocedure meloxicam 15 mg oral tablet (17 sources) Nonsteroidal Anti-inflammatory Drug Start: 08-10-2024 End: 09-21-2024 methscopolamine bromide 5 mg oral tablet (19 sources) Anticholinergic Start: 10-26-2023 End: 07-10-2024 5 ml midazolam 1 mg/ml injection (1 source) Benzodiazepine Start: 07-25-2024 End: 07-25-2024 INTRAVENOUS, X (OR/PROCEDURE) PRN, Starting on Tue07/25/24 at 1535, Until Tue07/25/24 at 1553, Intraprocedure 2 ml ondansetron 2 mg/ml injection (20 sources) Serotonin-3 Receptor Antagonist Start: 09-21-2024 End: 09-21-2024 4 mg, intravenous, Once, On Tue09/21/24 at 0000, For 1 dose, When administering via IV Push, administer over 3-5 minutes. Start: 09-13-2024 End: 10-24-2024 Start: 12-26-2022 End: 08-16-2023 Start: 12-26-2022 End: 08-16-2023 take 1 tablet by mouth three times daily as needed for nausea and vomiting Ondansetron 4 mg tablet,disintegrating Discontinued 4 mg PO THREE TIMES A DAY as needed for nausea and vomiting December 26, 2022 1:35am August 16, 2023 11:22am oxyCODONE hydrochloride 5 mg oral tablet (20 sources) Opioid Agonist Start: 09-14-2024 End: 10-17-2024 Start: 08-28-2024 End: 09-04-2024 Start: 08-24-2024 End: 09-11-2024 predniSONE 20 mg oral tablet (20 sources) Start: 07-20-2024 End: 08-11-2024 Start: 07-01-2024 End: 07-10-2024 Start: 07-01-2024 End: 07-10-2024 take 2 tablets by mouth once daily Prednisone 20 mg tablet Discontinued 40 mg PO DAILY 12 16July 01, 2024 12:00am July 10, 2024 11:56am rimegepant 75 mg disintegrat ing oral tablet (18 sources) Start: 07-26-2023 End: 08-16-2023 Start: 07-26-2023 End: 08-16-2023 take 1 tablet by mouth once as needed Rimegepant (Nurtec Odt) 75 mg tablet,disintegrating Discontinued 75 mg PO ONCE as needed July 26, 2023 12:00am August 16, 2023 11:23am as a single dose 72 hr scopolamine 0.0139 mg/ hr transdermal system (20 sources) Anticholinergic Start: 08-20-2024 End: 09-11-2024 Start: [...] 11:56am vortioxetine 10 mg oral tabl et (20 sources) Start: 08-11-2024 End: 09-21-2024 Problems Active Problems Problem Classification Problem Date Documented Da te Episodic/Chronic Abdominal pain (20 sources) Unspecified abdominal pain; Translations: [Epigastric pain] Onset: 4 07-03-2024 Episodic Administrative/social admission (1 source) Persons encountering health services in other specified circumstances; Translations: [Encounter for incision and drainage procedure] Onset: 5 Episodic Anxiety disorders (20 sources) Anxiety; Translations: [Anxiety disorder, unspecified] Onset: 9 07-26-2023 Chronic Comment on above: ON MED Asthma (20 sources) Asthma; Translations: [Unspecified asthma, uncomplicated] Onset: 5 Resolved: 5 07-26-2023 Chronic Comment on above: PRN INHALER Biliary tract disease (12 sources) Common bile duct calculus; Translations: [Calculus [...] on above: Med[employer]onic Visia AF M RI [id number] 10/29/2016[employer]onic [id number] right ventricular lead Congestive heart failure; nonhypertensive (20 sources) Heart failure, unspecified; Translations: [Heart failure] Onset: 2 Resolved: 5 07-21-2024 Chronic Diseases of white blood cells (20 sources) Elevated white blood cell count, unspecified; Translations: [Leukocytosis] Onset: 1 07-21-2024 Chronic Disorders of teeth and jaw (20 sources) Toothache; Translations: [Other specified disorders of teeth and supporting structures] Onset: 8 Resolved: 8 11-13-2021 Episodic E Codes: Fall (20 sources) Unspecified fall due to ice and [...] perforation] Onset: 1 Chronic Headache; including migraine (20 sources) Migraine; Translations: [Migraine, unspecified, not intractable, [...] encounter] Onset: 5 05-18-2024 Episodic Other aftercare (20 sources) Long-term current use of 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; Translations: [longterm (current) use of 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s] Onset: 5 07-26-2023 Episodic Other aftercare (1 source) Patient encounter status; Translations: [Encounter for therapeutic drug level monitoring] Onset: 5 07-26-2024 Episodic Other aftercare (1 source) 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; Translations: [Current use of custodial anticoagulation] Onset: 5 Episodic Other and ill-defined heart disease (1 source) Hypertrophic cardiomegaly ; Translations: [Cardiomegaly] 08-15-2024 Chronic Other and ill-defined heart disease (2 sources) Cardiomegaly; Translations: [Cardiomegaly] Onset: 5 Chronic Other circulatory disease (20 sources) History of cardiomyopathy; Translations: [Personal history of other diseases of the circulatory system] 07-21-2024 Episodic Other female genital disorders (10 sources) Abnormal uterine bleeding; Translations: [Abnormal uterine and vaginal bleeding, unspecified] 09-18-2024 Chronic Other female genital disorders (1 source) Abnormal uterine and vaginal bleeding, unspecified; Translations: [Abnormal uterine and vaginal bleeding, unspecified] Onset: Chronic Other gastrointestinal disorders (1 source) Irritable bowel syndrome without diarrhea; Translations: [Irritable bowel syndrome, unspecified] Onset: Chronic Other gastrointestinal disorders (20 sources) Ascites; Translations: [Other ascites] Onset: 5 07-04-2023 Episodic Other gastrointestinal disorders (20 sources) Diarrhea; Translations: [Diarrhea, unspecified] 08-08-2024 Episodic Other gastrointestinal disorders (2 sources) Constipation; Translations: [Other constipation] Onset: 5 09-23-2024 Episodic Other gastrointestinal disorders (1 source) Other constipation; Translations: [Other constipation] Onset: Episodic Other liver diseases (1 source) Other specified inflammatory liver diseases; Translations: [Other specified inflammatory liver diseases] Onset: Chronic Other liver diseases (4 sources) Large liver; Translations: [Hepatomegaly, not elsewhere classified] Onset: 5 07-05-2024 Episodic Other liver diseases (20 sources) Elevated liver enzymes level; Translations: [Abnormal levels of other serum enzymes] 08-20-2024 Episodic Other liver diseases (12 sources) High lipase level in serum; Translations: [Abnormal levels of other serum enzymes] 09-12-2024 Episodic Other liver diseases (1 source) Abnormal levels of other serum enzymes; Translations: [Abnormal levels of other serum enzymes] Onset: Episodic Other nervous system disorders (2 sources) Other chronic pain; Translations: [Other chronic pain] Onset: Chronic Other screening for suspected conditions (not [...] 5 07-21-2024 Episodic Pancreatic disorders (not diabetes) (20 sources) Pancreatic duct disorder; Translations: [Other specified [...] 5 07-24-2024 Episodic Pleurisy; pneumothorax; pulmonary collapse (19 sources) Pleural effusion; Translations: [Pleural effusion, not elsewhere classified] 07-04-2023 Episodic Pneumonia (except that caused by tuberculosis or sexually transmitted disease) (7 sources) Pneumonia; Translations: [Pneumonia, unspecified organism] Onset: 4 Resolved: 5 05-23-2014 Episodic Pulmonary heart disease (20 sources) Pulmonary hypertension, unspecified; Translations: [Severe pulmonary hypertension] Onset: 5 07-21-2024 Chronic Pulmonary heart disease (14 sources) Pulmonary thromboembolism; Translations: [Other pulmonary embolism without acute cor pulmonale] Onset: 7 01-22-2017 Episodic Residual codes; unclassified (20 sources) Insomnia; Translations: [Insomnia, unspecified] Onset: 5 07-26-2023 Episodic Residual codes; unclassified (20 sources) Past history of procedure; Translations: [Personal history of other medical treatment] 07-25-2024 Episodic Residual codes; unclassified (4 sources) History of left mastectomy; Translations: [Acquired absence of left breast and nipple] Onset: 5 07-24-2024 Episodic Residual codes; unclassified (1 source) Acquired absence of left breast and nipple; Translations: [H/O left mastectomy] Onset: 5 Episodic Residual codes; unclassified (1 source) Insomnia, unspecified; Translations: [Insomnia, unspecified type] Onset: 5 Episodic Residual codes; unclassified (1 source) Tobacco use and exposure - finding; Translations: [Tobacco use] 11-21-2024 Episodic Residual codes; unclassified (1 source) Other specified postprocedural states; Translations: [Other specified postprocedural states] Onset: 5 Episodic Skin and subcutaneous tissue infections (20 sources) Abscess of lower leg; Translations: [Cutaneous abscess of left lower limb] Onset: 5 05-20-2024 Episodic Sprains and strains (20 sources) Sprain of knee; Translations: [Sprain of unspecified site of left knee, initial encounter] 03-17-2022 Episodic Substance-related disorders (4 sources) Nicotine dependence, unspecified, uncomplicated; Translations: [Tobacco use disorder] Onset: 2 05-15-2024 Chronic Unclassified (4 sources) or return to ER Unclassified (1 source) Transaminitis; Translations: [Transaminitis] Onset: 5 Unclassified (3 sources) for gynecology evaluation Unclassified (4 sources) SUMMARY Onset: 5 03-09-2021 Unclassified (5 sources) Abnormal uterine bleeding Past or Other Problems Problem Classification Problem [...] Onset: 11-07-2013 Resolved: 05-23-2014 03-09-2021 Episodic Other circulatory disease (1 source) Personal history of other diseases of the circulatory system; Translations: [Personal history of other diseases of the circulatory system] Onset: 07-31-2024 Episodic Other connective tissue disease (4 sources) [...] foot] Onset: 10-03-2013 Resolved: 05-23-2014 05-23-2014 Episodic Residual codes; unclassified [...] Test Name Value Interpretation Reference Range Facility MR/PAT.ANEon 10-24-2024 MR/PAT.ANE Normal [facility] Cardiology Visit Reporton Cardiology Visit Report Normal [facility] Pacemaker Checkon 10-03-2024 Pacemaker Check Normal [facility] Basic metabolic 2000 panelon 09-23-2024 Anion gap [Moles/Vol] 12 mmol/L 10 - 2 0 mmol/L [facility] Calcium [Mass/Vol] 9.9 mg/dL 8.6 - 10. 3 mg/dL [facility] Chloride [Moles/Vol] 94 mmol/L Low 98 - 10 7 mmol/L [facility] CO2 [Moles/Vol] 32 mmol/L 21 - 32 mmol/L [facility] Creatinine [Mass/Vol] 0.92 mg/dL 0.50 - 1.05 mg/dL [facility] GFR/1.73 sq M.predicted among non-blacks MDRD (S/P/Bld) [Vol rate/Area] 78 mL/min/{1.73_m2} - PINF [facility] Comment on above: Calculations of vidla mated GFR are performed using the 2020 CKD-EPI Study Refit equation without the race variable for the IDMS-Traceable creatinine methods. https://jasn.asnjournals.org/content/early/ASN.294 3862304 Glucose [Mass/Vol] 89 mg/dL 74 - 99 mg/dL [facility] Interpretation and review of laboratory results Abnormal [facility] Potassium [Moles/Vol] 3.8 mmol/L 3.5 - 5.3 mmol/L [facility] Sodium [Moles/Vol] 134 mmol/L Low 136 - 145 mmol/L [facility] Urea nitrogen [Mass/Vol] 30 mg/dL High 6 - 23 mg/dL [facility] Anion gap [Moles/Vol] 12 mmol/L Normal 10-20 [facility] Comment on above: Performed By: #### 5 8077-9 #### JENNIFER ALBARRAN ([id number]) [facility] ([facility]) [address] [place] [address]7817 Calcium [Mass/Vol] 9.9 mg/dL Normal 8.6-10.3 [facility] Comment on above: Performed By: #### 5 8077-9 #### JENNIFRE ALBARRAN ([id number]) [facility] ([facility]) [facility] [place] [address] Chloride [Moles/Vol] 94 mmol/L Low 98-[address] [facility] Comment on above: Performed By: #### 5 8077-9 #### JENNIFER ALBARRAN ([id number]) [facility] ([facility]) [facility] [place] [address] CO2 [Moles/Vol] 32 mmol/L Normal 21-32 [facility] Comment on above: Performed By: #### 5 8077-9 #### JENNIFER ALBARRAN ([id number]) [facility] ([facility]) [address] [place] [address] 73927 Creatinine [Mass/Vol] 0.92 mg/dL Normal 0.50-1.05 [facility] Comment on above: Performed By: #### 5 8077-9 #### JENNIFER ALBARRAN ([id number]) [facility] ([facility]) [address] [place] [address] 28380 Glomerular filtration rate/1.73 sq M.predicted 78 mL/min/1.73m*2 Normal >60 [facility] Comment on above: Result Comment: Calc ulations of estimated GFR are performed using the 2020 CKD-EPI Study Refit equation without the race variable for the IDMS-Traceable creatinine methods. https://jasn.asnjournals.org/content//ASN.517 6858569 Performed By: #### 5 8077-9 #### JENNIFER ALBARRAN ([id number]) [facility] ([facility]) [address] [place] [address] 98574 Glucose [Mass/Vol] 89 mg/dL Normal 74-99 [facility] Comment on above: Performed By: #### 5 8077-9 #### JENNIFER ALBARRAN ([id number]) [facility] ([facility]) [address] [place] [address] 56813 Potassium [Moles/Vol] 3.8 mmol/L Normal 3.5-5.3 [facility] Comment on above: Performed By: #### 5 8077-9 #### JENNIFER ALBARRAN ([id number]) [facility] ([facility]) [address] [place] [address] 83379 Sodium [Moles/Vol] 134 mmol/L Low 136-145 [facility] Comment on above: Performed By: #### 5 8077-9 #### JENNIFER ALBARRAN ([id number]) [facility] ([facility]) [address] [place] [address] Urea nitrogen [Mass/Vol] 30 mg/dL High 6-23 [facility] Comment on above: Performed By: #### 5 8077-9 #### JENNIFER ALBARRAN ([id number]) [facility] ([facility]) [address] [place] [address] CBC panel Auto (Bld)on 09-23 Erythrocyte distribution width (RBC) [Ratio] 14.4 % 11.5 - 14.5 % [facility] Hematocrit (Bld) [Volume fraction] 49.8 % High 36.0 - 46.0 % [facility] Hemoglobin (Bld) [Mass/Vol] 16.6 g/dL High 12.0 - 16.0 g/dL [facility] Interpretation and review of laboratory results Abnormal [facility] MCH (RBC) [Entitic mass] 30.2 pg 26. 0 - 34.0 pg [facility] MCHC (RBC) [Mass/Vol] 33.3 g/dL 32.0 - 36.0 g/dL [facility] MCV (RBC) [Entitic vol] 91 fL 80 - 100 fL [facility] Nucleated RBC/100 WBC (Bld) [Ratio] 0 % [facility] Platelets (Bld) [#/Vol] 326 10*3/uL [facility] RBC (Bld) [#/Vol] 5.5 10*6/uL High [facility] WBC (Bld) [#/Vol] 13.9 10*3/uL [facility] Erythrocyte distribution width (RBC) [Ratio] 14.4 % Normal 11.5-14.5 [facility] Comment on above: Performed By: #### 5 8077-9 #### JENNIFER ALBARRAN ([id number]) [facility] ([facility]) [address] [place] [address] Hematocrit (Bld) [Volume fraction] 49.8 % High 36.0-46.0 [facility] Comment on above: Performed By: #### 5 8077-9 #### JENNIFER ALBARRAN ([id number]) [facility] ([facility]) [address] [place] [address] 00571 Hemoglobin (Bld) [Mass/Vol] 16.6 g/dL High 12.0-16.0 [facility] Comment on above: Performed By: #### 5 8077-9 #### JENNIFER ALBARRAN ([id number]) [facility] ([facility]) [address] [place] [address] 73294 MCH (RBC) [Entitic mass] 30.2 pg Normal 26.0-34.0 [facility] Comment on above: Performed By: #### 5 8077-9 #### JENNIFER ALBARRAN ([id number]) [facility] ([facility]) [address] [place] [address] 43908 MCHC (RBC) [Mass/Vol] 33.3 g/dL Normal 32.0-36.0 [facility] Comment on above: Performed By: #### 5 8077-9 #### JENNIFER ALBARRAN ([id number]) [facility] ([facility]) [address] [place] [address] 25487 MCV (RBC) [Entitic vol] 91 fL Normal 80-100 [facility] Comment on above: Performed By: #### 5 8077-9 #### JENNIFER ALBARRAN ([id number]) [facility] ([facility]) [address] [place] [address] 21015 Nucleated RBC/100 WBC (Bld) [Ratio] 0.0 /100 WBCs Normal 0.0-0.0 [facility] Comment on above: Performed By: #### 5 8077-9 #### JENNIFER ALBARRAN ([id number]) [facility] ([facility]) [address] [place] [address] 58457 Platelets (Bld) [#/Vol] 326 x10*3/uL Normal 150-450 [facility] Comment on above: Performed By: #### 5 8077-9 #### JENNIFER ALBARRAN ([id number]) [facility] ([facility]) [address] [place] [address] RBC (Bld) [#/Vol] 5.50 x10*6/uL High 4.00-5.[address] [facility] Comment on above: Performed By: #### 5 8077-9 #### RODRIGUEZ AVIS ([id number]) [facility] ([facility]) [address] [place] [address] WBC (Bld) [#/Vol] 13.9 x10*3/uL High 4.4-11.[address] [facility] Comment on above: Performed By: #### 5 8077-9 #### JENNIFER ALBARRAN ([id number]) [facility] ([facility]) [facility] [place] [address] ProcalcitoninOrdered By: Yancy Olivera on 09-23-2024 Procalcitonin [Mass/Vol] 0.04 ng/mL ARAVIND F - 0.07 ng/mL [facility] Procalcitoninon 09-23-2024 Procalcitonin [Mass/Vol] 0.04 ng/mL Normal <=0.07 [facility] Comment on above: Order Comment: Proca lcitonin (PCT) results measured serially canaid in decision-making for antibiotic discontinuation inpatients with suspected or confirmed sepsis in conjunctionwith additional clinical information. Antibioticdiscontinuation may be considered with a change in PCT of>80% from the peak result or when PCT falls below 0.50 ng/mL.Procalcitonin results should not be used in isolation butshould be interpreted in conjunction with additional clinicaland laboratory findings. Procalcitonin results should not beused to guide the initiation of antibiotic therapy.Falsely low PCT values in the presence of bacterial infectionmay occur in early infection, with atypical pathogens,localized infections, and subacute infectious endocarditis.Falsely elevated results outside of severe bacterialinfection/sepsis may be seen in patients with renal failureor insufficiency, severe trauma or ivan, recent majorabdominal/cardiac surgery, acute multi-organ failure, rarelyin patients with medullary thyroid carcinoma and rareneuroendocrine tumors, and non-specific interfering antibodies(heterophile antibodies, rheumatoid factor, human anti-mouseantibodies (HAMA), etc).Performance of the PCT test in pediatric patients (<18yo), women, immunocompromised patients, and patients onimmunomodulatory medications has not been evaluated. Performed By: #### 5 8077-9 #### RODRIGUEZ AVIS ([id number]) [facility] ([facility]) [address] [place] [address] Procalcitonin [Mass/Vol]Orde red By: Mariangel Olivera on 09-23-2024 Interpretation and review of laboratory results Normal [facility] Procalcitonin (PCT) results measured serially can aid in decision-making for antibiotic discontinuation in patients with suspected or confirmed sepsis in conjunction with additional clinical information. Antibiotic discontinuation may be considered with a change in PCT of >80% from the peak result or when PCT falls below 0.50 ng/mL. Procalcitonin results should not be used in isolation but should be interpreted in conjunction with additional clinical and laboratory findings. Procalcitonin results should not be used to guide the initiation of antibiotic therapy. Falsely low PCT values in the presence of bacterial infection may occur in early infection, with atypical pathogens, localized infections, and subacute infectious endocarditis. Falsely elevated results outside of severe bacterial infection/sepsis may be seen in patients with renal failure or insufficiency, severe trauma or ivan, recent major abdominal/cardiac surgery, acute multi-organ failure, rarely in patients with medullary thyroid carcinoma and rare neuroendocrine tumors, and non-specific interfering antibodies (heterophile antibodies, rheumatoid factor, human anti-mouse antibodies (HAMA), etc). Performance of the PCT test in pediatric patients (<18yo), women, immunocompromised patients, and patients on immunomodulatory medications has not been evaluated. [facility] Basic metabolic 2000 panelon 09-22-2024 Anion gap [Moles/Vol] 13 mmol/L 10 - 2 0 mmol/L [facility] Calcium [Mass/Vol] 10.4 mg/dL High 8.6 - 10. 3 mg/dL [facility] Chloride [Moles/Vol] 96 mmol/L Low 98 - 10 7 mmol/L [facility] CO2 [Moles/Vol] 31 mmol/L 21 - 32 mmol/L [facility] Creatinine [Mass/Vol] 0.95 mg/dL 0.50 - 1.05 mg/dL [facility] GFR/1.73 sq M.predicted among non-blacks MDRD (S/P/Bld) [Vol rate/Area] 75 mL/min/{1.73_m2} - PINF [facility] Comment on above: Calculations of vidal mated GFR are performed using the 2020 CKD-EPI Study Refit equation without the race variable for the IDMS-Traceable creatinine methods. https://jasn.asnjournals.org/content/early//ASN.507 4614489 Glucose [Mass/Vol] 84 mg/dL 74 - 99 mg/dL [facility] Interpretation and review of laboratory results Abnormal [facility] Potassium [Moles/Vol] 3.6 mmol/L 3.5 - 5.3 mmol/L [facility] Sodium [Moles/Vol] 136 mmol/L 136 - 145 mmol/L [facility] Urea nitrogen [Mass/Vol] 25 mg/dL High 6 - 23 mg/dL [facility] Anion gap [Moles/Vol] 13 mmol/L Normal 10-20 [facility] Comment on above: Performed By: #### 5 8077-9 #### JENNIFER ALBARRAN ([id number]) [facility] ([facility]) [facility] [place] [address] Calcium [Mass/Vol] 10.4 mg/dL High 8.6-10.3 [facility] Comment on above: Performed By: #### 5 8077-9 #### JENNIFER ALBARRAN ([id number]) [facility] ([facility]) [address] [place] [address] Chloride [Moles/Vol] 96 mmol/L Low 98-[address] [facility] Comment on above: Performed By: #### 5 8077-9 #### JENNIFER ALBARRAN ([id number]) [facility] ([facility]) [address] [place] [address] CO2 [Moles/Vol] 31 mmol/L Normal 21-32 [facility] Comment on above: Performed By: #### 5 8077-9 #### JENNIFER ALBARRAN ([id number]) [facility] ([facility]) [address] [place] [address] 48578 Creatinine [Mass/Vol] 0.95 mg/dL Normal 0.50-1.05 [facility] Comment on above: Performed By: #### 5 8077-9 #### JENNIFER ALBARRAN ([id number]) [facility] ([facility]) [address] [place] [address] 03544 Glomerular filtration rate/1.73 sq M.predicted 75 mL/min/1.73m*2 Normal >60 [facility] Comment on above: Result Comment: Calc ulations of estimated GFR are performed using the 2020 CKD-EPI Study Refit equation without the race variable for the IDMS-Traceable creatinine methods. https://jasn.asnjournals.org/content/early/ASN.176 0095655 Performed By: #### 5 8077-9 #### JENNIFER ALBARRAN ([id number]) [facility] ([facility]) [address] [place] [address] 33137 Glucose [Mass/Vol] 84 mg/dL Normal 74-99 [facility] Comment on above: Performed By: #### 5 8077-9 #### JENNIFER ALBARRAN ([id number]) [facility] ([facility]) [address] [place] [address] 25336 Potassium [Moles/Vol] 3.6 mmol/L Normal 3.5-5.3 [facility] Comment on above: Performed By: #### 5 8077-9 #### JENNIFER ALBARRAN ([id number]) [facility] ([facility]) [address] [place] [address] 14627 Sodium [Moles/Vol] 136 mmol/L Normal 136-145 [facility] Comment on above: Performed By: #### 5 8077-9 #### JENNIFER ALBARRAN ([id number]) [facility] ([facility]) [address] [place] [address] 94177 Urea nitrogen [Mass/Vol] 25 mg/dL High 6-23 [facility] Comment on above: Performed By: #### 5 8077-9 #### JENNIFER ALBARRAN ([id number]) [facility] ([facility]) [address] [place] [address] CBC panel Auto (Bld)on 09-22 Erythrocyte distribution width (RBC) [Ratio] 14.6 % High 11.5 - 14.5 % [facility] Hematocrit (Bld) [Volume fraction] 46.4 % High 36.0 - 46.0 % [facility] Hemoglobin (Bld) [Mass/Vol] 15.1 g/dL 12.0 - 16.0 g/dL [facility] Interpretation and review of laboratory results Abnormal [facility] MCH (RBC) [Entitic mass] 30.5 pg 26. 0 - 34.0 pg [facility] MCHC (RBC) [Mass/Vol] 32.5 g/dL 32.0 - 36.0 g/dL [facility] MCV (RBC) [Entitic vol] 94 fL 80 - 100 fL [facility] Nucleated RBC/100 WBC (Bld) [Ratio] 0 % [facility] Platelets (Bld) [#/Vol] 319 10*3/uL [facility] RBC (Bld) [#/Vol] 4.95 10*6/uL [facility] WBC (Bld) [#/Vol] 12.8 10*3/uL High [facility] Erythrocyte distribution width (RBC) [Ratio] 14.6 % High 11.5-14.5 [facility] Comment on above: Performed By: #### 5 8077-9 #### JENNIFER ALBARRAN ([id number]) [facility] ([facility]) [address] [place] [address] Hematocrit (Bld) [Volume fraction] 46.4 % High 36.0-46.0 [facility] Comment on above: Performed By: #### 5 8077-9 #### JENNIFER ALBARRAN ([id number]) [facility] ([facility]) [address] [place] [address] Hemoglobin (Bld) [Mass/Vol] 15.1 g/dL Normal 12.0-16.0 [facility] Comment on above: Performed By: #### 5 8077-9 #### JENNIFER ALBARRAN ([id number]) [facility] ([facility]) [address] [place] [address] 35977 MCH (RBC) [Entitic mass] 30.5 pg Normal 26.0-34.0 [facility] Comment on above: Performed By: #### 5 8077-9 #### JENNIFER ALBARRAN ([id number]) [facility] ([facility]) [address] [place] [address] 38985 MCHC (RBC) [Mass/Vol] 32.5 g/dL Normal 32.0-36.0 [facility] Comment on above: Performed By: #### 5 8077-9 #### JENNIFER ALBARRAN ([id number]) [facility] ([facility]) [address] [place], [place] [id number] MCV (RBC) [Entitic vol] 94 fL Normal 80-100 U [facility] Comment on above: Performed By: #### 5 8077-9 #### JENNIFER ALBARRAN ([id number]) [facility] ([facility]) [address] [place] [address] 24122 Nucleated RBC/100 WBC (Bld) [Ratio] 0.0 /100 WBCs Normal 0.0-0.0 [facility] Comment on above: Performed By: #### 5 8077-9 #### JENNIFER ALBARRAN ([id number]) [facility] ([facility]) [address] [place] [address] 88266 Platelets (Bld) [#/Vol] 319 x10*3/uL Normal 150-450 [facility] Comment on above: Performed By: #### 5 8077-9 #### JENNIFER ALBARRAN ([id number]) [facility] ([facility]) [address] [place] [address] 88797 RBC (Bld) [#/Vol] 4.95 x10*6/uL Normal 4.00-5.[address] [facility] Comment on above: Performed By: #### 5 8077-9 #### JENNIFER AVIS ([id number]) [facility] ([facility]) [address] [place] [address] WBC (Bld) [#/Vol] 12.8 x10*3/uL High 4.4-11.[address] [facility] Comment on above: Performed By: #### 5 8077-9 #### RODRIGUEZ AVIS ([id number]) [facility] ([facility]) [address] [place] [address] CT ABDOMEN PELVIS WO IV CONT [facility] 09-22-2024 CT ABDOMEN PELVIS WO IV CONTRAST Interpreted By: Giacomo Soriano, STUDY: CT ABDOMEN PELVIS WO IV CONTRAST; 09/22/2024 11:47 am INDICATION: Signs/Symptoms:rt flank pain ro kidney stones hematuria. COMPARISON: 09/21/2024 ACCESSION NUMBER(S): [id number] ORDERING CLINICIAN: RISHABH EL TECHNIQUE: CT of the abdomen and pelvis was performed without IV contrast. Sagittal and coronal reconstructions. FINDINGS: Limited evaluation for solid organs and vasculature without intravenous contrast. Lower Chest: Cardiomegaly. Partially visualized cardiac device lead. Small area of consolidation the left lower lobe along the pulmonary fissure. Calcified granuloma in the right lower lobe. Liver: The liver is unremarkable without focal lesion. Gallbladder and Biliary: Status post cholecystectomy. CBD stent. Pneumobilia. Pancreas: Pancreatic stent. Spleen: No abnormality identified in the spleen. Adrenals: No abnormality identified in either adrenal gland. Urinary: No parenchymal abnormality identified in either kidney. No hydronephrosis. Gastrointestinal/Periton eum: No small or large bowel obstruction in the visualized abdomen. In the abdomen, there is no extraluminal air. Small nonspecific pelvic free fluid. Moderate colonic stool burden. Sigmoid colonic diverticulosis. Sutures along the cecum, correlate for prior appendectomy. Vascular: Abdominal aorta is normal in caliber. Atherosclerosis. Lymphatics: No enlarged lymph nodes by size criteria. MSK/Body Wall: No aggressive bony lesion identified. 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 IMPRESSION: Small area of consolidation in the left lower lobe raising suspicion for pneumonia. Moderate colonic stool burden, correlate for constipation. Sigmoid colonic diverticulosis. Signed by: Giacomo Soriano 09/22/2024 1:15 PM Dictation workstation: [id number] [facility] CT Abdomen WO contraston Small area of consolidation in the left lower lobe raising suspicion for pneumonia. Moderate colonic stool burden, correlate for constipation. Sigmoid colonic diverticulosis. Signed by: Giacomo Soriano 09/22/2024 1:15 PM Dictation workstation: [id number] MMODAL Interpreted By: Giacomo Soriano, STUDY: CT ABDOMEN PELVIS WO IV CONTRAST; 09/22/2024 11:47 am INDICATION: Signs/Symptoms:rt flank pain ro kidney stones hematuria. COMPARISON: 09/21/2024 ACCESSION NUMBER(S): [id number] ORDERING CLINICIAN: RISHABH EL TECHNIQUE: CT of the abdomen and pelvis was performed without IV contrast. Sagittal and coronal reconstructions. FINDINGS: Limited evaluation for solid organs and vasculature without intravenous contrast. Lower Chest: Cardiomegaly. Partially visualized cardiac device lead. Small area of consolidation the left lower lobe along the pulmonary fissure. Calcified granuloma in the right lower lobe. Liver: The liver is unremarkable without focal lesion. Gallbladder and Biliary: Status post cholecystectomy. CBD stent. Pneumobilia. Pancreas: Pancreatic stent. Spleen: No abnormality identified in the spleen. Adrenals: No abnormality identified in either adrenal gland. Urinary: No parenchymal abnormality identified in either kidney. No hydronephrosis. Gastrointestinal/Periton eum: No small or large bowel obstruction in the visualized abdomen. In the abdomen, there is no extraluminal air. Small nonspecific pelvic free fluid. Moderate colonic stool burden. Sigmoid colonic diverticulosis. Sutures along the cecum, correlate for prior appendectomy. Vascular: Abdominal aorta is normal in caliber. Atherosclerosis. Lymphatics: No enlarged lymph nodes by size criteria. MSK/Body Wall: No aggressive bony lesion identified. 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 MMODAL Giacomo Soriano MD - 09/22/2024 Interpreted By: Giacomo Soriano, STUDY: CT ABDOMEN PELVIS WO IV CONTRAST; 09/22/2024 11:47 am INDICATION: Signs/Symptoms:rt flank pain ro kidney stones hematuria. COMPARISON: 09/21/2024 ACCESSION NUMBER(S): [id number] ORDERING CLINICIAN: RISHABH EL TECHNIQUE: CT of the abdomen and pelvis was performed without IV contrast. Sagittal and coronal reconstructions. FINDINGS: Limited evaluation for solid organs and vasculature without intravenous contrast. Lower Chest: Cardiomegaly. Partially visualized cardiac device lead. Small area of consolidation the left lower lobe along the pulmonary fissure. Calcified granuloma in the right lower lobe. Liver: The liver is unremarkable without focal lesion. Gallbladder and Biliary: Status post cholecystectomy. CBD stent. Pneumobilia. Pancreas: Pancreatic stent. Spleen: No abnormality identified in the spleen. Adrenals: No abnormality identified in either adrenal gland. Urinary: No parenchymal abnormality identified in either kidney. No hydronephrosis. Gastrointestinal/Periton eum: No small or large bowel obstruction in the visualized abdomen. In the abdomen, there is no extraluminal air. Small nonspecific pelvic free fluid. Moderate colonic stool burden. Sigmoid colonic diverticulosis. Sutures along the cecum, correlate for prior appendectomy. Vascular: Abdominal aorta is normal in caliber. Atherosclerosis. Lymphatics: No enlarged lymph nodes by size criteria. MSK/Body Wall: No aggressive bony lesion identified. 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 IMPRESSION: Small area of consolidation in the left lower lobe raising suspicion for pneumonia. Moderate colonic stool burden, correlate for constipation. Sigmoid colonic diverticulosis. Signed by: Giacomo Soriano 09/22/2024 1:15 PM Dictation workstation: [id number] [facility] Work Phone: Radiology Study observation (narrative) [facility] Work Phone: CT Abdomen WO contrastOrdere d By: Giacomo Soriano on 09-22-2024 [facility] Work Phone: Lactateon 09-22-2024 Lactate [Moles/Vol] 1.2 mmol/L 0.4 - 2. 0 mmol/L [facility] Lactate [Moles/Vol] 1.2 mmol/L Normal 0.4-2.0 [facility] Comment on above: Order Comment: Venip uncture immediately after or during the administration of Metamizole may lead to falsely low results. Testing should be performed immediately prior to Metamizole dosing. Performed By: Kim### 5 [id number] #### RODRIGUEZ AVIS ([id number]) [facility] ([facility]) [address] [place] [address] Lactate [Moles/Vol]on 2024 Interpretation and review of laboratory results Normal [facility] Venipuncture immedia tely after or during the administration of Metamizole may lead to falsely low results. Testing should be performed immediately prior to Metamizole dosing. [facility] CBC W Auto Differential pane l (Bld)on 09-21-2024 Basophils (Bld) [#/Vol] 0.01 10*3/uL [facility] Basophils/100 WBC (Bld) 0.1 % 0.0 - 2.0 % [facility] Eosinophils (Bld) [#/Vol] 0.01 10*3/uL [facility] Eosinophils/100 WBC (Bld) 0.1 % 0.0 - 6.0 % [facility] Erythrocyte distribution width (RBC) [Ratio] 14.9 % High 11.5 - 14.5 % [facility] Hematocrit (Bld) [Volume fraction] 40.7 % 36.0 - 46.0 % [facility] Hemoglobin (Bld) [Mass/Vol] 13.1 g/dL 12.0 - 16.0 g/dL [facility] Immature granulocytes (Bld) [#/Vol] 0.09 10*3/uL [facility] Immature granulocytes/100 WBC (Bld) 0.6 % 0.0 - 0.9 % [facility] Comment on above: Immature Granulocyte Count (IG) includes promyelocytes, myelocytes and metamyelocytes but does not include bands. Percent differential counts (%) should be interpreted in the context of the absolute cell counts (cells/UL). Interpretation and review of laboratory results Abnormal [facility] Lymphocytes (Bld) [#/Vol] 0.65 10*3/uL Low [facility] Lymphocytes/100 WBC (Bld) 4.2 % 13.0 - 44.0 % [facility] MCH (RBC) [Entitic mass] 30.3 pg 26. 0 - 34.0 pg [facility] MCHC (RBC) [Mass/Vol] 32.2 g/dL 32.0 - 36.0 g/dL [facility] MCV (RBC) [Entitic vol] 94 fL 80 - 100 fL [facility] Monocytes (Bld) [#/Vol] 0.37 10*3/uL [facility] Monocytes/100 WBC (Bld) 2.4 % 2.0 - 10.0 % [facility] Neutrophils (Bld) [#/Vol] 14.39 10*3/uL High [facility] Comment on above: Percent differential counts (%) should be interpreted in the context of the absolute cell counts (cells/uL). Neutrophils/100 WBC (Bld) 92.6 % 40.0 - 80.0 % [facility] Nucleated RBC/100 WBC (Bld) [Ratio] 0 % [facility] Platelets (Bld) [#/Vol] 276 10*3/uL [facility] RBC (Bld) [#/Vol] 4.32 10*6/uL [facility] WBC (Bld) [#/Vol] 15.5 10*3/uL [facility] Basophils (Bld) [#/Vol] 0.01 x10*3/uL Normal 0.00-0.10 [facility] Comment on above: Performed By: #### 5 7021-8 #### JENNIFER ALBARRAN ([id number]) [facility] ([facility]) [address] [place] [address] 57495 Basophils/100 WBC (Bld) 0.1 % Normal 0.0-2.0 U [facility] Comment on above: Performed By: #### 5 7021-8 #### JENNIFER ALBARRAN ([id number]) [facility] ([facility]) [address] [place] [address] 92268 Eosinophils (Bld) [#/Vol] 0.01 x10*3/uL Normal 0.00-0.70 [facility] Comment on above: Performed By: #### 5 7021-8 #### JENNIFER ALBARRAN ([id number]) [facility] ([facility]) [address] [place] [address] 08325 Eosinophils/100 WBC (Bld) 0.1 % Normal 0.0-6.0 [facility] Comment on above: Performed By: #### 5 7021-8 #### JENNIFER ALBARRAN ([id number]) [facility] ([facility]) [address] [place] [address] 73072 Erythrocyte distribution width (RBC) [Ratio] 14.9 % High 11.5-14.5 [facility] Comment on above: Performed By: #### 5 7021-8 #### JENNIFER ALBARRAN ([id number]) [facility] ([facility]) [address] [place] [address] 25274 Hematocrit (Bld) [Volume fraction] 40.7 % Normal 36.0-46.0 [facility] Comment on above: Performed By: #### 5 7021-8 #### JENNIFER ALBARRAN ([id number]) [facility] ([facility]) [address] [place] [address] 29148 Hemoglobin (Bld) [Mass/Vol] 13.1 g/dL Normal 12.0-16.0 [facility] Comment on above: Performed By: #### 5 7021-8 #### JENNIFER ALBARRAN ([id number]) [facility] ([facility]) [address] [place] [address] 14394 Immature granulocytes (Bld) [#/Vol] 0.09 x10*3/uL Normal 0.00-0.70 [facility] Comment on above: Performed By: #### 5 7021-8 #### JENNIFER ALBARRAN ([id number]) [facility] ([facility]) [address] [place] [address] 27248 Immature granulocytes/100 WBC (Bld) 0.6 % Normal 0.0-0.9 [facility] Comment on above: Result Comment: Samina ture Granulocyte Count (IG) includes promyelocytes, myelocytes and metamyelocytes but does not include bands. Percent differential counts (%) should be interpreted in the context of the absolute cell counts (cells/UL). Performed By: #### 5 7021-8 #### JENNIFER ALBARRAN ([id number]) [facility] ([facility]) [address] [place] [address] 95301 Lymphocytes (Bld) [#/Vol] 0.65 x10*3/uL Low 1.20-4.80 [facility] Comment on above: Performed By: #### 5 7021-8 #### JENNIFER ALBARRAN ([id number]) [facility] ([facility]) [address] [place] [address] 60180 Lymphocytes/100 WBC (Bld) 4.2 % Normal 13.0-44.0 [facility] Comment on above: Performed By: #### 5 7021-8 #### JENNIFER ALBARRAN ([id number]) [facility] ([facility]) [address] [place] [address] 09802 MCH (RBC) [Entitic mass] 30.3 pg Normal 26.0-34.0 [facility] Comment on above: Performed By: #### 5 7021-8 #### JENNIFER ALBARRAN ([id number]) [facility] ([facility]) [address] [place] [address] 40276 MCHC (RBC) [Mass/Vol] 32.2 g/dL Normal 32.0-36.0 [facility] Comment on above: Performed By: #### 5 7021-8 #### JENNIFER ALBARRAN ([id number]) [facility] ([facility]) [address] [place] [address] 33138 MCV (RBC) [Entitic vol] 94 fL Normal 80-100 U [facility] Comment on above: Performed By: #### 5 7021-8 #### JENNIFER ALBARRAN ([id number]) [facility] ([facility]) [address] [place] [address] 44488 Monocytes (Bld) [#/Vol] 0.37 x10*3/uL Normal 0.10-1.00 [facility] Comment on above: Performed By: #### 5 7021-8 #### JENNIFER ALBARRAN ([id number]) [facility] ([facility]) [address] [place] [address] 94834 Monocytes/100 WBC (Bld) 2.4 % Normal 2.0-10.0 U [facility] Comment on above: Performed By: #### 5 7021-8 #### JENNIFER ALBARRAN ([id number]) [facility] ([facility]) [facility] [place] [address] Neutrophils (Bld) [#/Vol] 14.39 x10*3/uL High 1.20-7.70 [facility] Comment on above: Result Comment: Perc ent differential counts (%) should be interpreted in the context of the absolute cell counts (cells/uL). Performed By: #### 5 7021-8 #### JENNIFER ALBARRAN ([id number]) [facility] ([facility]) [address] [place] [address] 23215 Neutrophils/100 WBC (Bld) 92.6 % Normal 40.0-80.0 [facility] Comment on above: Performed By: #### 5 7021-8 #### JENNIFER ALBARRAN ([id number]) [facility] ([facility]) [address] [place] [address] 61259 Nucleated RBC/100 WBC (Bld) [Ratio] 0.0 /100 WBCs Normal 0.0-0.0 [facility] Comment on above: Performed By: #### 5 7021-8 #### JENNIFER ALBARRAN ([id number]) [facility] ([facility]) [address] [place] [address] 29677 Platelets (Bld) [#/Vol] 276 x10*3/uL Normal 150-450 [facility] Comment on above: Performed By: #### 5 7021-8 #### JENNIFER ALBARRAN ([id number]) [facility] ([facility]) [address] [place] [address] 16565 RBC (Bld) [#/Vol] 4.32 x10*6/uL Normal 4.00-5.[address] [facility] Comment on above: Performed By: #### 5 7021-8 #### JENNIFER ALBARRAN ([id number]) [facility] ([facility]) [address] [place] [address] 63268 WBC (Bld) [#/Vol] 15.5 x10*3/uL High 4.4-11.[address] [facility] Comment on above: Performed By: #### 5 7021-8 #### RODRIGUEZ AVIS ([id number]) [facility] ([facility]) [facility] [place] [address] CT Abdomen and Pelvis W cont rast Amber 09-21-2024 1. Constellation of the imaging findings suggestive of hypovolemia/fluid overload, including borderline enlarged, heterogeneously attenuating liver suggestive of underlying vascular congestion, although component of fatty infiltration not excluded. Small to moderate volume of fluid is present in the abdomen and pelvis. 2. Mild circumferential bladder wall thickening may be due to incomplete distention, although correlation with urinalysis to exclude any underlying cystitis is recommended. 3. Metallic stents are visualized in the common bile duct and in the proximal pancreatic duct, and terminate in the duodenum. There is trace intrahepatic and extrahepatic pneumobilia without evidence of biliary dilatation. 4. Additional findings as described above. MACRO: None. Signed by: Deondre Davila 09/21/2024 1:44 AM Dictation workstation: [id number] [facility] Interpreted By: Deondre Davila, STUDY: CT ABDOMEN PELVIS W IV CONTRAST; 09/21/2024 1:33 am INDICATION: Signs/Symptoms:abd pain. COMPARISON: Same day CTA of the chest. ACCESSION NUMBER(S): [id number] ORDERING CLINICIAN: ROCKY EVERETT TECHNIQUE: Contiguous axial images of the abdomen and pelvis were obtained after the intravenous administration of 75 mL of Omnipaque 350 iodinated contrast. Coronal and sagittal reformatted images were reconstructed from the axial data. FINDINGS: LOWER CHEST: Please refer to separately dictated same day CTA of the chest for further characterization of the thoracic findings. ABDOMEN/PELVIS: ABDOMINAL WALL: Cutaneous tissues of the abdomen and pelvis demonstrate mild third-spacing. No acute abnormality is otherwise present. LIVER: Liver is somewhat heterogeneous in attenuation and demonstrates diffusely decreased density compared to the spleen, suggestive of underlying vascular congestion and/or fatty infiltration. Portal vein is unremarkable in appearance. BILE DUCTS: There is no evidence of intrahepatic or extrahepatic biliary dilatation. A metallic stent is visualized in the common bile duct, with trace intrahepatic and extrahepatic pneumobilia. Distal end of the stent terminates within the duodenum. GALLBLADDER: Gallbladder is not visualized, and is likely surgically absent. PANCREAS: A metallic stent is visualized within the proximal pancreatic duct, traversing into the duodenum. No pancreatic ductal dilatation or peripancreatic stranding is evident. SPLEEN: No acute splenic abnormality is identified. ADRENALS: Adrenal glands do not demonstrate any acute abnormality bilaterally. KIDNEYS, URETERS, BLADDER: Kidneys are symmetric in size and enhancement without evidence of hydronephrosis or radiopaque nephrolithiasis. Upper ureters do not demonstrate any acute abnormality. Mild bladder wall thickening is present, possibly due to incomplete distention. REPRODUCTIVE ORGANS: Uterus is present without evidence of adnexal masses or fluid collections. Large cluster of left-sided peripelvic veins is present. VESSELS: No acute vascular abnormality is identified. RETROPERITONEUM/LYMPH NODES: No acute retroperitoneal abnormality. No enlarged lymph nodes. BOWEL/MESENTERY/PERITONE UM: No inflammatory bowel wall thickening or dilatation. Appendix is not definitely identified and may be surgically absent. Scattered diverticula are present in the distal descending and sigmoid colon without evidence of acute diverticulitis. Small to moderate volume of fluid is present in the lower abdomen and pelvis. Additional small pocket of fluid is present in the ana m hepatis and along the right hepatic lobe. MUSCULOSKELETAL: No acute osseous abnormality. No suspicious osseous lesion. [facility] MM[facility] Ria Davila v, MD - 09/21/2024 Interpreted By: Deondre Davila, STUDY: CT ABDOMEN PELVIS W IV CONTRAST; 09/21/2024 1:33 am INDICATION: Signs/Symptoms:abd pain. COMPARISON: Same day CTA of the chest. ACCESSION NUMBER(S): [id number] ORDERING CLINICIAN: ROCKY EVERETT TECHNIQUE: Contiguous axial images of the abdomen and pelvis were obtained after the intravenous administration of 75 mL of Omnipaque 350 iodinated contrast. Coronal and sagittal reformatted images were reconstructed from the axial data. FINDINGS: LOWER CHEST: Please refer to separately dictated same day CTA of the chest for further characterization of the thoracic findings. ABDOMEN/PELVIS: ABDOMINAL WALL: Cutaneous tissues of the abdomen and pelvis demonstrate mild third-spacing. No acute abnormality is otherwise present. LIVER: Liver is somewhat heterogeneous in attenuation and demonstrates diffusely decreased density compared to the spleen, suggestive of underlying vascular congestion and/or fatty infiltration. Portal vein is unremarkable in appearance. BILE DUCTS: There is no evidence of intrahepatic or extrahepatic biliary dilatation. A metallic stent is visualized in the common bile duct, with trace intrahepatic and extrahepatic pneumobilia. Distal end of the stent terminates within the duodenum. GALLBLADDER: Gallbladder is not visualized, and is likely surgically absent. PANCREAS: A metallic stent is visualized within the proximal pancreatic duct, traversing into the duodenum. No pancreatic ductal dilatation or peripancreatic stranding is evident. SPLEEN: No acute splenic abnormality is identified. ADRENALS: Adrenal glands do not demonstrate any acute abnormality bilaterally. KIDNEYS, URETERS, BLADDER: Kidneys are symmetric in size and enhancement without evidence of hydronephrosis or radiopaque nephrolithiasis. Upper ureters do not demonstrate any acute abnormality. Mild bladder wall thickening is present, possibly due to incomplete distention. REPRODUCTIVE ORGANS: Uterus is present without evidence of adnexal masses or fluid collections. Large cluster of left-sided peripelvic veins is present. VESSELS: No acute vascular abnormality is identified. RETROPERITONEUM/LYMPH NODES: No acute retroperitoneal abnormality. No enlarged lymph nodes. BOWEL/MESENTERY/PERITONE UM: No inflammatory bowel wall thickening or dilatation. Appendix is not definitely identified and may be surgically absent. Scattered diverticula are present in the distal descending and sigmoid colon without evidence of acute diverticulitis. Small to moderate volume of fluid is present in the lower abdomen and pelvis. Additional small pocket of fluid is present in the ana m hepatis and along the right hepatic lobe. MUSCULOSKELETAL: No acute osseous abnormality. No suspicious osseous lesion. IMPRESSION: 1. Constellation of the imaging findings suggestive of hypovolemia/fluid overload, including borderline enlarged, heterogeneously attenuating liver suggestive of underlying vascular congestion, although component of fatty infiltration not excluded. Small to moderate volume of fluid is present in the abdomen and pelvis. 2. Mild circumferential bladder wall thickening may be due to incomplete distention, although correlation with urinalysis to exclude any underlying cystitis is recommended. 3. Metallic stents are visualized in the common bile duct and in the proximal pancreatic duct, and terminate in the duodenum. There is trace intrahepatic and extrahepatic pneumobilia without evidence of biliary dilatation. 4. Additional findings as described above. MACRO: None. Signed by: Deondre Davila 09/21/2024 1:44 AM Dictation workstation: [id number] [facility] Work Phone: [facility] Work Phone: Radiology Study observation (narrative) [facility] Work Phone: CT Chest W contrast IV and C T angiogram Pulmonary arteries for pulmonary embolus W contrast Amber 09-21-2024 1. No evidence of th e large central pulmonary embolism through the segmental level. Of the aeration of the smaller vessels is degraded by beam hardening artifact from the contrast bolus in the left subclavian vein and contrast bolus from the right subclavian approach pacemaker. 2. Small right-sided pleural effusion with mild interstitial and pulmonary edema are present in the lungs bilaterally. Some fluid is present along the fissures in the lower lobes, [id number]. 3. Mild cardiomegaly with some reflux of contrast into the hepatic veins and IVC, findings that may be seen in the setting of early right heart strain. Correlate with echocardiogram. MACRO: None Signed by: Deondre Davila 09/21/2024 1:38 AM Dictation workstation: [id number] [facility]AL Interpreted By: Deondre Davila, STUDY: CT ANGIO CHEST FOR PULMONARY EMBOLISM; 09/21/2024 1:31 am INDICATION: Signs/Symptoms:sob - hx of PE - not anticoagulated. COMPARISON: None ACCESSION NUMBER(S): [id number] ORDERING CLINICIAN: ROCKY EVERETT TECHNIQUE: Helical data acquisition of the chest was obtained after intravenous administration of 68 ML Omnipaque 350, as per PE protocol. Images were reformatted in coronal and sagittal planes. Axial and coronal maximum intensity projection (MIP) images were created and reviewed. FINDINGS: POTENTIAL LIMITATIONS OF THE STUDY: Images are somewhat degraded by beam hardening artifact from the contrast bolus in the left subclavian vein and contrast bolus from the right chest wall pacemaker. HEART AND VESSELS: No large central pulmonary embolism is present through the segmental level. Main pulmonary artery and its branches are normal in caliber. The thoracic aorta normal in course and caliber.Minimal vascular calcifications are present in the thoracic aorta.Near non-opacification of thoracic aorta precludes assessment for acute aortic pathology. No coronary artery calcifications are seen. Please note, the study is not optimized for evaluation of coronary arteries. There is mild 4 chamber cardiomegaly.There are no findings to suggest right heart strain. There is a right subclavian approach dual chamber cardiac pacemaker/ICD seen in placewith leads terminating within right atrium and apical right ventricle. There is no pericardial effusion seen. MEDIASTINUM AND JULISSA, LOWER NECK AND AXILLA: The visualized thyroid gland is within normal limits. No evidence of thoracic lymphadenopathy by CT criteria. Esophagus appears within normal limits as seen. LUNGS AND AIRWAYS: The trachea and central airways are patent. No endobronchial lesion is seen.Again central Small right-sided pleural effusion is present, with interstitial thickening and geographic ground-glass opacity is present in the lungs bilaterally, suggestive of underlying interstitial and pulmonary edema. Small amount of fluid is also present along the fissures in the lungs bilaterally. There is no evidence of pneumothorax. UPPER ABDOMEN: Please refer to separately dictated same day CT of the abdomen and pelvis for further characterization of the abdominal findings. CHEST WALL AND OSSEOUS STRUCTURES: Chest wall is within normal limits. No acute osseous pathology.There are no suspicious osseous lesions.No acute abnormality is identified in the thoracic spine. [facility] Ria Davila v, MD - 09/21/2024 Interpreted By: Deondre Davila, STUDY: CT ANGIO CHEST FOR PULMONARY EMBOLISM; 09/21/2024 1:31 am INDICATION: Signs/Symptoms:sob - hx of PE - not anticoagulated. COMPARISON: None ACCESSION NUMBER(S): [id number] ORDERING CLINICIAN: ROCKY EVERETT TECHNIQUE: Helical data acquisition of the chest was obtained after intravenous administration of 68 ML Omnipaque 350, as per PE protocol. Images were reformatted in coronal and sagittal planes. Axial and coronal maximum intensity projection (MIP) images were created and reviewed. FINDINGS: POTENTIAL LIMITATIONS OF THE STUDY: Images are somewhat degraded by beam hardening artifact from the contrast bolus in the left subclavian vein and contrast bolus from the right chest wall pacemaker. HEART AND VESSELS: No large central pulmonary embolism is present through the segmental level. Main pulmonary artery and its branches are normal in caliber. The thoracic aorta normal in course and caliber.Minimal vascular calcifications are present in the thoracic aorta.Near non-opacification of thoracic aorta precludes assessment for acute aortic pathology. No coronary artery calcifications are seen. Please note, the study is not optimized for evaluation of coronary arteries. There is mild 4 chamber cardiomegaly.There are no findings to suggest right heart strain. There is a right subclavian approach dual chamber cardiac pacemaker/ICD seen in placewith leads terminating within right atrium and apical right ventricle. There is no pericardial effusion seen. MEDIASTINUM AND JULISSA, LOWER NECK AND AXILLA: The visualized thyroid gland is within normal limits. No evidence of thoracic lymphadenopathy by CT criteria. Esophagus appears within normal limits as seen. LUNGS AND AIRWAYS: The trachea and central airways are patent. No endobronchial lesion is seen.Again central Small right-sided pleural effusion is present, with interstitial thickening and geographic ground-glass opacity is present in the lungs bilaterally, suggestive of underlying interstitial and pulmonary edema. Small amount of fluid is also present along the fissures in the lungs bilaterally. There is no evidence of pneumothorax. UPPER ABDOMEN: Please refer to separately dictated same day CT of the abdomen and pelvis for further characterization of the abdominal findings. CHEST WALL AND OSSEOUS STRUCTURES: Chest wall is within normal limits. No acute osseous pathology.There are no suspicious osseous lesions.No acute abnormality is identified in the thoracic spine. IMPRESSION: 1. No evidence of the large central pulmonary embolism through the segmental level. Of the aeration of the smaller vessels is degraded by beam hardening artifact from the contrast bolus in the left subclavian vein and contrast bolus from the right subclavian approach pacemaker. 2. Small right-sided pleural effusion with mild interstitial and pulmonary edema are present in the lungs bilaterally. Some fluid is present along the fissures in the lower lobes, vicst-[id number]-hzig-left. 3. Mild cardiomegaly with some reflux of contrast into the hepatic veins and IVC, findings that may be seen in the setting of early right heart strain. Correlate with echocardiogram. MACRO: None Signed by: Deondre Davila 09/21/2024 1:38 AM Dictation workstation: [id number] [facility] Work Phone: Radiology Study observation (narrative) [facility] Work Phone: CT Chest W contrast IV and C T angiogram Pulmonary arteries for pulmonary embolus W contrast IVOrdered By: Deondre Davila on 09-21-2024 [facility] Work Phone: Comprehensive metabolic 2000 panelon 09-21-2024 Albumin BCP dye [Mass/Vol] 4.2 g/dL 3.4 - 5.0 g/dL [facility] ALP [Catalytic activity/Vol] 105 U/L 33 - 110 U/L [facility] ALT With P-5'-P [Catalytic activity/Vol] 212 U/L High 7 - 45 U/L [facility] Comment on above: Patients treated wit h Sulfasalazine may generate falsely decreased results for ALT. Anion gap [Moles/Vol] 13 mmol/L 10 - 2 0 mmol/L [facility] AST With P-5'-P [Catalytic activity/Vol] 24 U/L 9 - 39 U/L [facility] Bilirubin [Mass/Vol] 1 mg/dL 0.0 - 1 .2 mg/dL [facility] Calcium [Mass/Vol] 9.8 mg/dL 8.6 - 10. 3 mg/dL [facility] Chloride [Moles/Vol] 106 mmol/L 98 - 10 7 mmol/L [facility] CO2 [Moles/Vol] 21 mmol/L 21 - 32 mmol/L [facility] Creatinine [Mass/Vol] 0.82 mg/dL 0.50 - 1.05 mg/dL [facility] GFR/1.73 sq M.predicted among non-blacks MDRD (S/P/Bld) [Vol rate/Area] 90 mL/min/{1.73_m2} - PINF [facility] Comment on above: Calculations of vidal mated GFR are performed using the 2020 CKD-EPI Study Refit equation without the race variable for the IDMS-Traceable creatinine methods. https://jasn.asnjournals.org/content/early/ASN.602 8466945 Glucose [Mass/Vol] 144 mg/dL High 74 - 99 mg/dL [facility] Potassium [Moles/Vol] 4.1 mmol/L 3.5 - 5.3 mmol/L [facility] Protein [Mass/Vol] 6.5 g/dL 6.4 - 8.2 g/dL [facility] Sodium [Moles/Vol] 136 mmol/L 136 - 145 mmol/L [facility] Urea nitrogen [Mass/Vol] 21 mg/dL 6 - 23 mg/dL [facility] Albumin BCP dye [Mass/Vol] 4.2 g/dL Normal 3.4-5.0 [facility] Comment on above: Performed By: #### 2 4323-8 #### JENNIFER ALBARRAN ([id number]) [facility] ([facility]) [address] [place] [address] ALP [Catalytic activity/Vol] 105 U/L Normal 33-110 [facility] Comment on above: Performed By: #### 2 4323-8 #### JENNIFER ALBARRAN ([id number]) [facility] ([facility]) [address] [place] [address] 48492 ALT With P-5'-P [Catalytic activity/Vol] 212 U/L High 7-45 [facility] Comment on above: Result Comment: Makayla ents treated with Sulfasalazine may generate falsely decreased results for ALT. Performed By: #### 2 4323-8 #### JENNIFER ALBARRAN ([id number]) [facility] ([facility]) [address] [place] [address] 61462 Anion gap [Moles/Vol] 13 mmol/L Normal 10-20 [facility] Comment on above: Performed By: #### 2 4323-8 #### JENNIFER ALBARRAN ([id number]) [facility] ([facility]) [address] [place] [address] 05462 AST With P-5'-P [Catalytic activity/Vol] 24 U/L Normal 9-39 [facility] Comment on above: Performed By: #### 2 4323-8 #### JENNIFER ALBARRAN ([id number]) [facility] ([facility]) [address] [place] [address] 30090 Bilirubin [Mass/Vol] 1.0 mg/dL Normal 0.0-1.[address] [facility] Comment on above: Performed By: #### 2 4323-8 #### JENNIFER ALBARRAN ([id number]) [facility] ([facility]) [facility] [place] [address] Calcium [Mass/Vol] 9.8 mg/dL Normal 8.6-10.3 [facility] Comment on above: Performed By: #### 2 4323-8 #### JENNIFER ALBARRAN ([id number]) [facility] ([facility]) [address] [place] [address] 74923 Chloride [Moles/Vol] 106 mmol/L Normal 98-[address] [facility] Comment on above: Performed By: #### 2 4323-8 #### JENNIFER ALBARRAN ([id number]) [facility] ([facility]) [address] [place] [address] 34426 CO2 [Moles/Vol] 21 mmol/L Normal 21-32 [facility] Comment on above: Performed By: #### 2 4323-8 #### JENNIFER ALBARRAN ([id number]) [facility] ([facility]) [address] [place] [address] 66182 Creatinine [Mass/Vol] 0.82 mg/dL Normal 0.50-1.05 [facility] Comment on above: Performed By: #### 2 4323-8 #### JENNIFER ALBARRAN ([id number]) [facility] ([facility]) [address] [place] [address] 59581 Glomerular filtration rate/1.73 sq M.predicted 90 mL/min/1.73m*2 Normal >60 [facility] Comment on above: Result Comment: Calc ulations of estimated GFR are performed using the 2020 CKD-EPI Study Refit equation without the race variable for the IDMS-Traceable creatinine methods. https://jasn.asnjournals.org/content/early//ASN.645 5006960 Performed By: #### 2 4323-8 #### JENNIFER ALBARRAN ([id number]) [facility] ([facility]) [address] [place] [address] 97[address] Glucose [Mass/Vol] 144 mg/dL High 74-99 [facility] Comment on above: Performed By: #### 2 4323-8 #### JENNIFER ALBARRAN ([id number]) [facility] ([facility]) [address] [place] [address] 56242 Potassium [Moles/Vol] 4.1 mmol/L Normal 3.5-5.3 [facility] Comment on above: Performed By: #### 2 4323-8 #### JENNIFER ALBARRAN ([id number]) [facility] ([facility]) [address] [place] [address] 50050 Protein [Mass/Vol] 6.5 g/dL Normal 6.4-8.2 [facility] Comment on above: Performed By: #### 2 4323-8 #### JENNIFER ALBARRAN ([id number]) [facility] ([facility]) [address] [place] [address] 91638 Sodium [Moles/Vol] 136 mmol/L Normal 136-145 [facility] Comment on above: Performed By: #### 2 4323-8 #### JENNIFER ALBARRAN ([id number]) [facility] ([facility]) [address] [place] [address] 48711 Urea nitrogen [Mass/Vol] 21 mg/dL Normal 6-23 [facility] Comment on above: Performed By: #### 2 4323-8 #### JENNIFER ALBARRAN ([id number]) [facility] ([facility]) [address] [place] [address] 76068 ECG 12-LEADon 09-21-2024 ECG 12-LEAD Ventricular Rate 65 Atrial Rate 65 P-R Interval 162 QRS Duration 94 Q-T Interval 412 QTC Calculation(Bazett) 428 P [place] -14 R [place] 266 T [place] 59 QRS Count 11 Q Onset 203 P Onset 122 P Offset 191 T Offset 409 QTC Fredericia 422 Diagnosis Normal sinus rhythm Incomplete right bundle branch block Right ventricular hypertrophy Possible Lateral infarct , age undetermined Abnormal ECG When compared with ECG of 20-SEP-2024 22:33, (unconfirmed) Vent. rate has decreased BY 96 BPM Incomplete right bundle branch block is now Present See ED provider note for full interpretation and clinical correlation Confirmed by Bilderback, Roselyn ([id number]) on 09/25/2024 7:52:09 PM Normal [facility] Lipaseon 09-21-2024 Lipase [Catalytic activity/Vol] 51 U/L 9 - 82 U/L [facility] Lipase [Catalytic activity/V ol]on 09-21-2024 Interpretation and review of laboratory results Normal [facility] Venipuncture immedia tely after or during the administration of Metamizole may lead to falsely low results. Testing should be performed immediately prior to Metamizole dosing. [facility] Magnesiumon 09-21-2024 Magnesium [Mass/Vol] 1.57 mg/dL Low 1.60 - 2.40 mg/dL [facility] Magnesium [Mass/Vol] 1.57 mg/dL Low 1.60-2.[address] [facility] Comment on above: Performed By: #### 1 9123-9 #### RODRIGUEZ AVIS ([id number]) [facility] ([facility]) [address] [place] [address] Natriuretic peptide B [Mass/ Vol]on 09-21-2024 Interpretation and review of laboratory results Abnormal [facility] Natriuretic peptide B (Bld) [Mass/Vol] pg/mL High 0 - 99 pg/mL [facility] <100 pg/mL - Heart failure unlikely 100-299 pg/mL - Intermediate probability of acute heart failure exacerbation. Correlate with clinical context and patient history. >=300 pg/mL - Heart Failure likely. Correlate with clinical context and patient history. BNP testing is performed using different testing methodology at [facility] than at other [facility]. Direct result comparisons should only be made within the same method. [facility] Natriuretic peptide B (Bld) [Mass/Vol] pg/mL High 0-99 [facility] Comment on above: Order Comment: <100 pg/mL - Heart failure unlikely 100-299 pg/mL - Intermediate probability of acute heart failure exacerbation. Correlate with clinical context and patient history. >=300 pg/mL - Heart Failure likely. Correlate with clinical context and patient history. BNP testing is performed using different testing methodology at [facility] than at other [facility]. Direct result comparisons should only be made within the same method. Performed By: #### 3 0934-4 #### RODRIGUEZ AVIS ([id number]) [facility] ([facility]) [address] [place] [address] No Panel Informationon 09-21 Interpretation and review of laboratory results Abnormal [facility] TRANSTHORACIC ECHO (TTE) COM PLETEon 09-21-2024 TRANSTHORACIC ECHO (TT[place]) [place] [address] [phone], TRANSTHORACIC ECHOCARDIOGRAM REPORT Patient Name: MICHELLE MITCHELL Reading Physician: [id number] Grady Sky MD Study Date: 09/21/2024 Ordering Provider: [id number] JAXSON OSORIO MRN/PID: [id number] Fellow: Nurse: Date of /Age: 7 1980 / 44 years Credit Collections Specialist: Nabor Ruiz [facility] Gender Assigned at F Additional Staff: : Height: 162.56 cm Admit Date: Weight: 58.97 kg Admission Status: Outpatient BSA / BMI: 1.63 m2 / 22.31 Department Location: [facility] Echo Lab kg/m2 Blood Pressure: 138 /100 mmHg Study Type: TRANSTHORACIC ECHO (TTE) COMPLETE Diagnosis/ICD: Unspecified systolic (congestive) heart failure (CHF)-I50.20 CPT Codes: Echo Complete w Full Doppler-90675 Study Detail: The following Echo studies were performed: 2D, M-Mode, Doppler and color flow. PHYSICIAN INTERPRETATION: Left Ventricle: The left ventricular systolic function is moderately decreased with a Vann's biplane calculated ejection fraction of 40%. There is global hypokinesis of the left ventricle with minor regional variations. The left ventricular cavity size is upper limits of normal. There is mild increased septal and normal posterior left ventricular wall thickness. Left ventricular diastolic filling cannot be determined due to right ventricular pacing. Left Atrium: The left atrial size is mildly dilated. Right Ventricle: The right ventricle is normal in size. There is mildly reduced right ventricular systolic function. A device is visualized in the right ventricle. Right Atrium: The right atrial size is upper limits of normal. Aortic Valve: The aortic valve is trileaflet. The aortic valve area by VTI is 1.28 cm??? with a peak velocity of 0.92 m/s. The peak and mean gradients are 3 mmHg and 2 mmHg, respectively, with a dimensionless index of 0.64. There is minimal aortic valve cusp calcification. There is mild aortic valve thickening. There is no evidence of aortic valve regurgitation. Mitral Valve: The mitral valve is mildly thickened. There is trace mitral valve regurgitation. Tricuspid Valve: The tricuspid valve is structurally normal. There is mild to moderate tricuspid regurgitation. The Doppler estimated right ventricular systolic pressure (RVSP) is severely elevated at 69 mmHg. Pulmonic Valve: The pulmonic valve is structurally normal. There is physiologic pulmonic valve regurgitation. Pericardium: Trivial pericardial effusion. Aorta: The aortic root is normal. In comparison to the previous echocardiogram(s): There are no prior studies on this patient for comparison purposes. CONCLUSIONS: 1. The left ventricular systolic function is moderately decreased with a Vann's biplane calculated ejection fraction of 40%. 2. There is global hypokinesis of the left ventricle with minor regional variations. 3. There is mildly reduced right ventricular systolic function. 4. Mild to moderate tricuspid regurgitation. 5. The Doppler estimated RVSP is severely elevated at 69 mmHg. QUANTITATIVE DATA SUMMARY: 2D MEASUREMENTS: Normal Ranges: Ao Root d: 2.60 cm (2.0-3.7cm) LAs: 4.60 cm (2.7-4.0cm) IVSd: 0.96 cm (0.6-1.1cm) LVPWd: 0.68 cm (0.6-1.1cm) LVIDd: 4.94 cm (3.9-5.9cm) LVIDs: 3.96 cm LV Mass Index: 84.2 g/m2 LVEDV Index: 47.52 ml/m2 LV % FS 19.8 % LEFT ATRIUM: Normal Ranges: LA Vol A4C: 50.9 ml (22+/-6mL/m2) LA Vol A2C: 47.1 ml LA Vol BP: 51.7 ml LA Vol Index A4C: 31.2ml/m2 LA Vol Index A2C: 28.9 ml/m2 LA Vol Index BP: 31.8 ml/m2 LA Area A4C: 18.9 cm2 LA Area A2C: 17.2 cm2 LA Major Morris Run A4C: 6.0 cm LA Major [place] A2C: 5.3 cm LA Volume Index: 30.9 ml/m2 LA Vol A4C: 50.3 ml LA Vol A2C: 48.4 ml LA Vol Index BSA: 30.3 ml/m2 LV SYSTOLIC FUNCTION: Normal Ranges: EF-A4C View: 40 % (>=55%) EF-A2C View: 36 % EF-Biplane: 40 % LV EF Reported: 40 % MITRAL INSUFFICIENCY: Normal Ranges: MR VTI: 190.00 cm MR Vmax: 480.00 cm/s AORTIC VALVE: Normal Ranges: AoV Vmax: 0.92 m/s (<=1.7m/s) AoV Peak P.4 mmHg (<20mmHg) AoV Mean P.0 mmHg (1.7-11.5mmHg) LVOT Max Carrington: 0.64 m/s (<=1.1m/s) AoV VTI: 19.90 cm (18-25cm) LVOT VTI: 12.70 cm LVOT Diameter: 1.60 cm (1.8-2.4cm) AoV Area, VTI: 1.28 cm2 (2.5-5.5cm2) AoV Area,Vmax: 1.40 cm2 (2.5-4.5cm2) AoV Dimensionless Index: 0.64 RIGHT VENTRICLE: TAPSE: 14.2 mm RV s' 0.05 m/s TRICUSPID VALVE/RVSP: Normal Ranges: Peak TR Velocity: 3.90 m/s Est. RA Pressure: 8 mmHg RV Syst Pressure: 69 mmHg (< 30mmHg) IVC Diam: 2.20 cm [id number] Grady Sky MD Electronically signed on 09/24/2024 at 7:36:17 AM Final Normal [facility] Triacylglycerol lipaseon Lipase [Catalytic activity/Vol] 51 U/L Normal 82 [facility] Comment on above: Order Comment: Venip uncture immediately after or during the administration of Metamizole may lead to falsely low results. Testing should be performed immediately prior to Metamizole dosing. Performed By: #### 3 040-3 #### RODRIGUEZ AVIS ([id number]) [facility] ([facility]) [address] [place] [address] Tropinin I.cardiac panel Hig h sensitivity methodon 09-21-2024 Interpretation and review of laboratory results Abnormal [facility] Less than 99th percentile of normal range cutoff- Female and children under 18 years old <14 ng/L; Male <21 ng/L: Negative Repeat testing should be performed if clinically indicated. Female and children under 18 years old 14-50 ng/L; Male 21-50 ng/L: Consistent with possible cardiac damage and possible increased clinical risk. Serial measurements may help to assess extent of myocardial damage. >50 ng/L: Consistent with cardiac damage, increased clinical risk and myocardial infarction. Serial measurements may help assess extent of myocardial damage. NOTE: Children less than 1 year old may have higher baseline troponin levels and results should be interpreted in conjunction with the overall clinical context. NOTE: Troponin I testing is performed using a different testing methodology at [facility] than at other [facility]. Direct result comparisons should only be made within the same method. [facility] Interpretation and review of laboratory results Abnormal [facility] Less than 99th percentile of normal range cutoff- Female and children under 18 years old <14 ng/L; Male <21 ng/L: Negative Repeat testing should be performed if clinically indicated. Female and children under 18 years old 14-50 ng/L; Male 21-50 ng/L: Consistent with possible cardiac damage and possible increased clinical risk. Serial measurements may help to assess extent of myocardial damage. >50 ng/L: Consistent with cardiac damage, increased clinical risk and myocardial infarction. Serial measurements may help assess extent of myocardial damage. NOTE: Children less than 1 year old may have higher baseline troponin levels and results should be interpreted in conjunction with the overall clinical context. NOTE: Troponin I testing is performed using a different testing methodology at [facility] than at other [facility]. Direct result comparisons should only be made within the same method. [facility] Troponin I, High Sensitivity , Initialon 09-21-2024 Tropinin I.cardiac panel High sensitivity method 49 ng/L High 0 - 13 ng/L [facility] Troponin I.cardiac panelon 0 09-21-2024 Tropinin I.cardiac panel High sensitivity method 48 ng/L High 0-13 [facility] Comment on above: Order Comment: Less than 99th percentile of normal range cutoff- Female and children under 18 years old <14 ng/L; Male <21 ng/L: Negative Repeat testing should be performed if clinically indicated. Female and children under 18 years old 14-50 ng/L; Male 21-50 ng/L: Consistent with possible cardiac damage and possible increased clinical risk. Serial measurements may help to assess extent of myocardial damage. >50 ng/L: Consistent with cardiac damage, increased clinical risk and myocardial infarction. Serial measurements may help assess extent of myocardial damage. NOTE: Children less than 1 year old may have higher baseline troponin levels and results should be interpreted in conjunction with the overall clinical context. NOTE: Troponin I testing is performed using a different testing methodology at [facility] than at [facility]. Direct result comparisons should only be made within the same method. Performed By: #### 8 9577-1 #### JENNIFER ALBARRAN ([id number]) [facility] ([facility]) [address] [place] [address] Tropinin I.cardiac panel High sensitivity method 49 ng/L High 0-13 [facility] Comment on above: Order Comment: Less than 99th percentile of normal range cutoff- Female and children under 18 years old <14 ng/L; Male <21 ng/L: Negative Repeat testing should be performed if clinically indicated. Female and children under 18 years old 14-50 ng/L; Male 21-50 ng/L: Consistent with possible cardiac damage and possible increased clinical risk. Serial measurements may help to assess extent of myocardial damage. >50 ng/L: Consistent with cardiac damage, increased clinical risk and myocardial infarction. Serial measurements may help assess extent of myocardial damage. NOTE: Children less than 1 year old may have higher baseline troponin levels and results should be interpreted in conjunction with the overall clinical context. NOTE: Troponin I testing is performed using a different testing methodology at [facility] than at [facility]. Direct result comparisons should only be made within the same method. Performed By: #### 8 9577-1 #### JENNIFER ALBARRAN ([id number]) [facility] ([facility]) [address] [place] [address]284 Troponin, High Sensitivity, 1 Houron 09-21-2024 Tropinin I.cardiac panel High sensitivity method 48 ng/L High 0 - 13 ng/L [facility] Urinalysis complete W Reflex Culture panel (U)on 09-21-2024 Appearance (U) Clear Clear [facility] Bilirubin (U) [Mass/Vol] Negative NEG ATIVE mg/dL [facility] Color (U) Light-Yellow Light-Sherman ow, Yellow, Dark-Yello w [facility] Epithelial cells.squamous Auto (Urine sed) [#/Area] 1-9 (SPARSE) Reference range not establishe d. /HPF [facility] Glucose Auto test strip (U) [Mass/Vol] Normal Normal mg/dL [facility] Interpretation and review of laboratory results Abnormal [facility] Ketones (U) [Mass/Vol] Negative NEGAT RUSH mg/dL [facility] Leukocyte esterase Auto test strip Ql (U) Negative NEGATIVE [facility] Mucus Auto (Urine sed) [#/Area] FEW Reference range not establishe d. /LPF [facility] Nitrite Auto test strip Ql (U) Negative NEGATIVE [facility] pH (U) 6.5 [pH] 5.0, 5.5, 6.0, 6.5, 7.0, 7.5, 8.0 [facility] Protein (U) [Mass/Vol] 30 (1+) Abnormal NEGAT RUSH, 10 (TRACE), 20 (TRACE) mg/dL [facility] RBC (U) [#/Vol] Negative NEGATIVE mg/dL [facility] RBC Auto (Urine sed) [#/Area] 6-10 Abnormal NONE, 1-2, 3-5 /HPF [facility] Specific gravity (U) [Rel density] 1.023 1.005 - 1.035 [facility] Urobilinogen (U) [Mass/Vol] Normal Normal mg/dL [facility] WBC Auto (Urine sed) [#/Area] 1-5 1-5, NONE /HPF [facility] Appearance (U) Clear Normal Clear [facility] Comment on above: Performed By: #### 5 8077-9 #### RODRIGUEZ AVIS ([id number]) [facility] ([facility]) [address] [place] [address] Bilirubin (U) [Mass/Vol] Negative Normal NEGATIVE [facility] Comment on above: Performed By: #### 5 8077-9 #### JENNIFER ALBARRAN ([id number]) [facility] ([facility]) [address] [place] [address] Color (U) Light-Yellow Normal Light-Sherman ow, Yellow, Dark-Yello w [facility] Comment on above: Performed By: #### 5 8077-9 #### JENNIFER ALBARRAN ([id number]) [facility] ([facility]) [address] [place] [address] Epithelial cells.squamous Auto (Urine sed) [#/Area] 1-9 (SPARSE) Normal Reference range not establishe d. [facility] Comment on above: Performed By: #### 5 8077-9 #### JENNIFER ALBARRAN ([id number]) [facility] ([facility]) [address] [place] [address] Glucose Auto test strip (U) [Mass/Vol] Normal Normal Normal [facility] Comment on above: Performed By: #### 5 8077-9 #### JENNIFER ALBARRAN ([id number]) [facility] ([facility]) [address] [place] [address] Ketones (U) [Mass/Vol] Negative Normal [facility]IVE [facility] on above: Performed By: #### 5 8077-9 #### JENNIFER ALBARRAN ([id number]) [facility] ([facility]) [address] [place], [place] [id number] Leukocyte esterase Auto test strip Ql (U) Negative Normal NEGATIVE [facility] Comment on above: Performed By: #### 5 8077-9 #### JENNIFER ALBARRAN ([id number]) [facility] ([facility]) [address] [place] [address] Mucus Auto (Urine sed) [#/Area] FEW Normal Reference range not establishe d. [facility] Comment on above: Performed By: #### 5 8077-9 #### JENNIFER ALBARRAN ([id number]) [facility] ([facility]) [address] [place] [address] Nitrite Auto test strip Ql (U) Negative Normal NEGATIVE [facility] Comment on above: Performed By: #### 5 8077-9 #### JENNIFER ALBARRAN ([id number]) [facility] ([facility]) [address] [place] [address] pH (U) 6.5 [pH] Normal 5.0, 5.5, 6.0, 6.5, 7.0, 7.5, 8.0 [facility] Comment on above: Performed By: #### 5 8077-9 #### JENNIFER ALBARRAN ([id number]) [facility] ([facility]) [address] [place] [address] Protein (U) [Mass/Vol] 30 (1+) Abnormal NEGAT RUSH, 10 (TRACE), 20 (TRACE) [facility] Comment on above: Performed By: #### 5 8077-9 #### JENNIFER ALBARRAN ([id number]) [facility] ([facility]) [address] [place] [address] RBC (U) [#/Vol] Negative Normal NEGATIVE [facility] Comment on above: Performed By: #### 5 8077-9 #### JENNIFER ALBARRAN ([id number]) [facility] ([facility]) [address] [place] [id number] RBC Auto (Urine sed) [#/Area] 6-10 Abnormal NONE, 1-2, 3-5 [facility] Comment on above: Performed By: #### 5 8077-9 #### JENNIFER ALBARRAN ([id number]) [facility] ([facility]) [address] [place] [address] Specific gravity (U) [Rel density] 1.023 Normal 1.005-1.[address] [place] [address] Comment on above: Performed By: #### 5 8077-9 #### JENNIFER ALBARRAN ([id number]) [facility] ([facility]) [address] [place] [address] Urobilinogen (U) [Mass/Vol] Normal Normal Normal [facility] Comment on above: Performed By: #### 5 8077-9 #### JENNIFER VAIS ([id number]) [facility] ([facility]) [address] [place] [address] WBC Auto (Urine sed) [#/Area] 1-5 Normal 1-5, NONE [facility] Comment on above: Performed By: #### 5 8077-9 #### RODRIGUEZ AVIS ([id number]) [facility] ([facility]) [facility] [place] [id number] ABDOMEN PELVIS W IV CONTR Munir 09-20-2024 CT ABDOMEN PELVIS W IV CONTRAST Interpreted By: Deondre Davila, STUDY: CT ABDOMEN PELVIS W IV CONTRAST; 09/21/2024 1:33 am INDICATION: Signs/Symptoms:abd pain. COMPARISON: Same day CTA of the chest. ACCESSION NUMBER(S): [id number] ORDERING CLINICIAN: ROCKY EVERETT TECHNIQUE: Contiguous axial images of the abdomen and pelvis were obtained after the intravenous administration of 75 mL of Omnipaque 350 iodinated contrast. Coronal and sagittal reformatted images were reconstructed from the axial data. FINDINGS: LOWER CHEST: Please refer to separately dictated same day CTA of the chest for further characterization of the thoracic findings. ABDOMEN/PELVIS: ABDOMINAL WALL: Cutaneous tissues of the abdomen and pelvis demonstrate mild third-spacing. No acute abnormality is otherwise present. LIVER: Liver is somewhat heterogeneous in attenuation and demonstrates diffusely decreased density compared to the spleen, suggestive of underlying vascular congestion and/or fatty infiltration. Portal vein is unremarkable in appearance. BILE DUCTS: There is no evidence of intrahepatic or extrahepatic biliary dilatation. A metallic stent is visualized in the common bile duct, with trace intrahepatic and extrahepatic pneumobilia. Distal end of the stent terminates within the duodenum. GALLBLADDER: Gallbladder is not visualized, and is likely surgically absent. PANCREAS: A metallic stent is visualized within the proximal pancreatic duct, traversing into the duodenum. No pancreatic ductal dilatation or peripancreatic stranding is evident. SPLEEN: No acute splenic abnormality is identified. ADRENALS: Adrenal glands do not demonstrate any acute abnormality bilaterally. KIDNEYS, URETERS, BLADDER: Kidneys are symmetric in size and enhancement without evidence of hydronephrosis or radiopaque nephrolithiasis. Upper ureters do not demonstrate any acute abnormality. Mild bladder wall thickening is present, possibly due to incomplete distention. REPRODUCTIVE ORGANS: Uterus is present without evidence of adnexal masses or fluid collections. Large cluster of left-sided peripelvic veins is present. VESSELS: No acute vascular abnormality is identified. RETROPERITONEUM/LYMPH NODES: No acute retroperitoneal abnormality. No enlarged lymph nodes. BOWEL/MESENTERY/PERITONE UM: No inflammatory bowel wall thickening or dilatation. Appendix is not definitely identified and may be surgically absent. Scattered diverticula are present in the distal descending and sigmoid colon without evidence of acute diverticulitis. Small to moderate volume of fluid is present in the lower abdomen and pelvis. Additional small pocket of fluid is present in the ana m hepatis and along the right hepatic lobe. MUSCULOSKELETAL: No acute osseous abnormality. No suspicious osseous lesion. IMPRESSION: 1. Constellation of the imaging findings suggestive of hypovolemia/fluid overload, including borderline enlarged, heterogeneously attenuating liver suggestive of underlying vascular congestion, although component of fatty infiltration not excluded. Small to moderate volume of fluid is present in the abdomen and pelvis. 2. Mild circumferential bladder wall thickening may be due to incomplete distention, although correlation with urinalysis to exclude any underlying cystitis is recommended. 3. Metallic stents are visualized in the common bile duct and in the proximal pancreatic duct, and terminate in the duodenum. There is trace intrahepatic and extrahepatic pneumobilia without evidence of biliary dilatation. 4. Additional findings as described above. MACRO: None. Signed by: Deondre Davila 09/21/2024 1:44 AM Dictation workstation: [id number] [facility] CT ANGIO CHEST FOR PULMONARY EMBOLISMon 09-20-2024 CT ANGIO CHEST FOR PULMONARY EMBOLISM Interpreted By: Deondre Davila, STUDY: CT ANGIO CHEST FOR PULMONARY EMBOLISM; 09/21/2024 1:31 am INDICATION: Signs/Symptoms:sob - hx of PE - not anticoagulated. COMPARISON: None ACCESSION NUMBER(S): [id number] ORDERING CLINICIAN: ROCKY EVERETT TECHNIQUE: Helical data acquisition of the chest was obtained after intravenous administration of 68 ML Omnipaque 350, as per PE protocol. Images were reformatted in coronal and sagittal planes. Axial and coronal maximum intensity projection (MIP) images were created and reviewed. FINDINGS: POTENTIAL LIMITATIONS OF THE STUDY: Images are somewhat degraded by beam hardening artifact from the contrast bolus in the left subclavian vein and contrast bolus from the right chest wall pacemaker. HEART AND VESSELS: No large central pulmonary embolism is present through the segmental level. Main pulmonary artery and its branches are normal in caliber. The thoracic aorta normal in course and caliber.Minimal vascular calcifications are present in the thoracic aorta.Near non-opacification of thoracic aorta precludes assessment for acute aortic pathology. No coronary artery calcifications are seen. Please note, the study is not optimized for evaluation of coronary arteries. There is mild 4 chamber cardiomegaly.There are no findings to suggest right heart strain. There is a right subclavian approach dual chamber cardiac pacemaker/ICD seen in placewith leads terminating within right atrium and apical right ventricle. There is no pericardial effusion seen. MEDIASTINUM AND JULISSA, LOWER NECK AND AXILLA: The visualized thyroid gland is within normal limits. No evidence of thoracic lymphadenopathy by CT criteria. Esophagus appears within normal limits as seen. LUNGS AND AIRWAYS: The trachea and central airways are patent. No endobronchial lesion is seen.Again central Small right-sided pleural effusion is present, with interstitial thickening and geographic ground-glass opacity is present in the lungs bilaterally, suggestive of underlying interstitial and pulmonary edema. Small amount of fluid is also present along the fissures in the lungs bilaterally. There is no evidence of pneumothorax. UPPER ABDOMEN: Please refer to separately dictated same day CT of the abdomen and pelvis for further characterization of the abdominal findings. CHEST WALL AND OSSEOUS STRUCTURES: Chest wall is within normal limits. No acute osseous pathology.There are no suspicious osseous lesions.No acute abnormality is identified in the thoracic spine. IMPRESSION: 1. No evidence of the large central pulmonary embolism through the segmental level. Of the aeration of the smaller vessels is degraded by beam hardening artifact from the contrast bolus in the left subclavian vein and contrast bolus from the right subclavian approach pacemaker. 2. Small right-sided pleural effusion with mild interstitial and pulmonary edema are present in the lungs bilaterally. Some fluid is present along the fissures in the lower lobes, ztcoy-hbsbpad-jspn-left. 3. Mild cardiomegaly with some reflux of contrast into the hepatic veins and IVC, findings that may be seen in the setting of early right heart strain. Correlate with echocardiogram. MACRO: None Signed by: Deondre Davila 09/21/2024 1:38 AM Dictation workstation: [id number] [facility] Gastroenterology Visit Repor ton 09-18-2024 Gastroenterology Visit Report Normal [facility] Liver Profileon 09-15-2024 ALB Normal 3.5-5.0 [facility] Comment on above: Result Comment: Canc elled via OM: Order cancelled - Patient discharged Performed By: #### L 500.3400 ####[facility] [address] [place], [address] ALK PHOS Normal 35-104 [facility] Comment on above: Result Comment: Canc elled via OM: Order cancelled - Patient discharged Performed By: #### L 500.3400 ####[facility] [address] [place], [address] ALT Normal <=34 [facility] Comment on above: Result Comment: Canc elled via OM: Order cancelled - Patient discharged Performed By: #### L 500.3400 ####[facility] [address] [place], [address] AST Normal <=31 [facility] Comment on above: Result Comment: Canc elled via OM: Order cancelled - Patient discharged Performed By: #### L 500.3400 ####[facility] [address] [place], [address] D BILI Normal 0.00-0.30 [facility] Comment on above: Result Comment: Canc elled via OM: Order cancelled - Patient discharged Performed By: #### L 500.3400 ####[facility] [address] [place], [address] T BILI Normal 0.00-1.30 [facility] Comment on above: Result Comment: Canc elled via OM: Order cancelled - Patient discharged Performed By: #### L 500.3400 ####[facility] [address] [place], [address] T PROT Normal 5.9-8.4 [facility] Comment on above: Result Comment: Canc elled via OM: Order cancelled - Patient discharged Performed By: #### L 500.3400 ####[facility] [address] [place], [address] Absolute lymphocyte countOrd ered By: Emerson Sierra on 09-14-2024 Lymphocytes Auto (Unsp spec) [#/Vol] 1.17 10*3/uL 0.83-4.51 [facility] Anion gap in Serum or Plasma Ordered By: Emersonyan Sierra on 09-14-2024 Anion gap [Moles/Vol] 12 mmol/L 5-15 [facility] Automated lymphocyte count a s percentage of total leukocytesOrdered By: Emerson Sierra on 09-14-2024 Lymphocytes/100 WBC Auto (Unsp spec) 6.7 % Low 19-41 [facility] BUN/creatinine ratioOrdered By: Emerson Sierra on 09-14-2024 Urea nitrogen/Creatinine [Mass ratio] 19.8 mg/mg 10-20 [facility] Basic Metabolic Profile (BMP )on 09-14-2024 BUN/CRE 19.8 RATIO Normal 10-20 [facility] Comment on above: Performed By: #### L 500.3400, L100.0100, L500.2500 ####[facility] [address] [place], [address] Calcium [Mass/Vol] 9.6 mg/dL Normal 7.6-11.0 [facility] Comment on above: Performed By: #### L 500.3400, L100.0100, L500.2500 ####[facility] [address] [place], [address] Chloride [Moles/Vol] 101 mmol/L Normal 98-108 [facility] Comment on above: Performed By: #### L 500.3400, L100.0100, L500.2500 ####[facility] [address] [place], [address] CO2 [Moles/Vol] 18.9 mmol/L Low 21.0-32.0 [facility] Comment on above: Performed By: #### L 500.3400, L100.0100, L500.2500 ####[facility] [address] [place], [address] Creatinine [Mass/Vol] 0.98 mg/dL Normal 0.70-1.20 [facility] Comment on above: Performed By: #### L 500.3400, L100.0100, L500.2500 ####[facility] [address] [place], [address] ECRCL 63.26 ml/min Normal 50-250 [facility] Comment on above: Performed By: #### L 500.3400, L100.0100, L500.2500 ####[facility] [address] [place], [address] GAP 12 Normal 5-15 [facility] Comment on above: Performed By: #### L 500.3400, L100.0100, L500.2500 ####[facility] [address] [place], [address] GFR/1.73 sq M.predicted among non-blacks MDRD (S/P/Bld) [Vol rate/Area] 73 mL/min/{1.73_m2} Normal >60 [facility] Comment on above: Result Comment: mL/m in/1.73m2 CKD-EPI Creatinine Equation (2020) Performed By: #### L 500.3400, L100.0100, L500.2500 ####[facility] [address] [place], [address] Glucose [Mass/Vol] 119 mg/dL High 70-99 [facility] Comment on above: Performed By: #### L 500.3400, L100.0100, L500.2500 ####[facility] [address] [place], [address] Potassium [Moles/Vol] 4.6 mmol/L Normal 3.3-5.1 [facility] Comment on above: Performed By: #### L 500.3400, L100.0100, L500.2500 ####[facility] [address] [place], [address] Sodium [Moles/Vol] 131 mmol/L Low 133-145 [facility] Comment on above: Performed By: #### L 500.3400, L100.0100, L500.2500 ####[facility] [address] [place], [address] Urea nitrogen [Mass/Vol] 19 mg/dL Normal 4-19 [facility] Comment on above: Performed By: #### L 500.3400, L100.0100, L500.2500 ####[facility] [address] [place], [address] Basophil percentageOrdered B y: Emerson Sierra on 09-14-2024 Basophils/100 WBC (Bld) 0.2 % 0-1 [facility] Bilirubin directOrdered By: Emerson Sierra on 09-14-2024 Bilirubin.direct [Mass/Vol] 0.39 mg/dL High 0.00-0.30 [facility] Bilirubin, totalOrdered By: Emerson Sierra on 09-14-2024 Bilirubin [Mass/Vol] 0.90 mg/dL 0.00-1.30 [facility] CBC W/Diff, Automatedon 07-0 Absolute Lymph 1.17 X10 3/uL Normal 0.83-4.51 [facility] Comment on above: Performed By: #### L 500.3400, L100.0100, L500.2500 ####[facility] [address] [place], [address] Absolute Neut 14.5 X10 3/uL High 2.0-7.7 [facility] Comment on above: Performed By: #### L 500.3400, L100.0100, L500.2500 ####[facility] [address] [place], [address] Basophils/100 WBC (Bld) 0.2 % Normal 0-1 [facility] Comment on above: Performed By: #### L 500.3400, L100.0100, L500.2500 ####[facility] [address] [place], [address] Eosinophils/100 WBC (Bld) 0.1 % Normal 0-5 [facility] Comment on above: Performed By: #### L 500.3400, L100.0100, L500.2500 ####[facility] [address] [place], [address] Erythrocyte distribution width (RBC) [Ratio] 14.5 % Normal 11.6-14.6 [facility] Comment on above: Performed By: #### L 500.3400, L100.0100, L500.2500 ####[facility] [address] [place], [address] Hematocrit (Bld) [Volume fraction] 38.4 % Normal 37-47 [facility] Comment on above: Performed By: #### L 500.3400, L100.0100, L500.2500 ####[facility] [address] [place], [address] Hemoglobin (Bld) [Mass/Vol] 12.2 g/dL Normal 12.0-15.0 [facility] Comment on above: Performed By: #### L 500.3400, L100.0100, L500.2500 ####[facility] [address] [place], [address] IG% 0.700 Normal 0.0-0.9 [facility] Comment on above: Result Comment: IG% - Immature Granulocytes (promyelocytes, myelocytes andmetamyelocytes) > 1% indicates that a LEFT SHIFT is Present. Performed By: #### L 500.3400, L100.0100, L500.2500 ####[facility] [address] [place], [address] Lymphocytes/100 WBC (Bld) 6.7 % Low 19-41 [facility] Comment on above: Performed By: #### L 500.3400, L100.0100, L500.2500 ####[facility] [address] [place], [address] MCH (RBC) [Entitic mass] 30.7 pg Normal 27.0-32.0 [facility] Comment on above: Performed By: #### L 500.3400, L100.0100, L500.2500 ####[facility] [address] [place], [address] MCHC (RBC) [Mass/Vol] 31.8 g/dL Low 32-36 [facility] Comment on above: Performed By: #### L 500.3400, L100.0100, L500.2500 ####[facility] [address] [place], [address] MCV (RBC) [Entitic vol] 96.5 fL Normal 81-99 [facility] Comment on above: Performed By: #### L 500.3400, L100.0100, L500.2500 ####[facility] [address] [place], [address] Monocytes/100 WBC (Bld) 8.8 % Normal 0-10 [facility] Comment on above: Performed By: #### L 500.3400, L100.0100, L500.2500 ####[facility] [address] [place], [address] Neutrophils/100 WBC (Bld) 83.5 % High 47-70 [facility] Comment on above: Performed By: #### L 500.3400, L100.0100, L500.2500 ####[facility] [address] [place], [address] Nucleated RBC (Bld) [#/Vol] 0 10*3/uL Normal 0-5 [facility] Comment on above: Performed By: #### L 500.3400, L100.0100, L500.2500 ####[facility] [address] [place], [address] Platelet mean volume (Bld) [Entitic vol] 10.2 fL Normal 6.2-12.0 [facility] Comment on above: Performed By: #### L 500.3400, L100.0100, L500.2500 ####[facility] [address] [place], [address] Platelets (Bld) [#/Vol] 339 10*3/uL Normal 150-450 [facility] Comment on above: Performed By: #### L 500.3400, L100.0100, L500.2500 ####[facility] [address] [place], [address] RBC (Bld) [#/Vol] 3.98 10*6/uL Low 4.2-5.4 [facility] Comment on above: Performed By: #### L 500.3400, L100.0100, L500.2500 ####[facility] [address] [place], [address] RDW SD 51.4 fl High 35.1-43.9 [facility] Comment on above: Performed By: #### L 500.3400, L100.0100, L500.2500 ####[facility] [address] [place], [address] WBC (Bld) [#/Vol] 17.3 10*3/uL High 4.4-11.0 [facility] Comment on above: Performed By: #### L 500.3400, L100.0100, L500.2500 ####[facility] [address] [place], [address] Carbon dioxide, total [Moles /volume] in Central venous bloodOrdered By: Emerson Sierra on 09-14-2024 CO2 [Moles/Vol] 18.9 mmol/L Low 21.0-32.0 [facility] Chloride assayOrdered By: Yaniv Sierra on 09-14-2024 Chloride [Moles/Vol] 101 mmol/L 98-108 [facility] Discharge Instructionon 07-0 Discharge Instruction Normal [facility] Eosinophil percentageOrdered By: Emerson Sierra on 09-14-2024 Eosinophils/100 WBC (Bld) 0.1 % 0-5 [facility] Erythrocyte distribution wid th ratioOrdered By: Emerson iSerra on 09-14-2024 Erythrocyte distribution width (RBC) [Ratio] 14.5 % 11.6-14.6 [facility] Erythrocyte distribution wid th standard deviationOrdered By: Emerson Sierra on 09-14-2024 Erythrocyte distribution width (RBC) [Ratio] 51.4 fl High 35.1-43.9 [facility] Glomerular filtration rate ( GFR) estimation/1.73 sq m using serum, plasma, or whole bOrdered By: Emerson Sierra on 09-14-2024 GFR/1.73 sq M.predicted among non-blacks MDRD (S/P/Bld) [Vol rate/Area] 73 mL/min/{1.73_m2} >60 [facility] Hematocrit Auto (Bld) [Volum e fraction]Ordered By: Emerson Sierra on 09-14-2024 Hematocrit (Bld) [Volume fraction] 38.4 % 37-47 [facility] Hemoglobin measurementOrdere d By: Emerson Sierra on 09-14-2024 Hemoglobin (Bld) [Mass/Vol] 12.2 g/dL 12.0-15.0 [facility] Immature granulocytes/100 WB C Auto (Bld)Ordered By: Emerson Sierra on 09-14-2024 Immature granulocytes/100 WBC (Bld) 0.700 % 0.0-0.9 [facility] L501.5101on 09-14-2024 GGTP 45 IU/L Normal 0-60 [facility] Comment on above: Result Comment: Perf ormed at: - [facility] [address] [id number] Director: Victor M Hargrove PhD, Phone: [phone] Performed By: #### L 501.5101 ####[facility] [address] [place], [address] Liver Profileon 09-14-2024 Albumin [Mass/Vol] 4.6 g/dL Normal 3.5-5.0 [facility] Comment on above: Performed By: #### L 500.3400, L100.0100, L500.2500 ####[facility] [address] [place], [address] ALK PHOS 153 U/L High 35-104 [facility] Comment on above: Performed By: #### L 500.3400, L100.0100, L500.2500 ####[facility] [address] [place], [address] ALT [Catalytic activity/Vol] 322 U/L High <=34 [facility] Comment on above: Performed By: #### L 500.3400, L100.0100, L500.2500 ####[facility] [address] [place], [address] AST [Catalytic activity/Vol] 443 U/L High <=31 [facility] Comment on above: Performed By: #### L 500.3400, L100.0100, L500.2500 ####[facility] [address] [place], [address] Bilirubin [Mass/Vol] 0.90 mg/dL Normal 0.00-1.30 [facility] Comment on above: Performed By: #### L 500.3400, L100.0100, L500.2500 ####[facility] [address] [place], [address] Bilirubin.direct [Mass/Vol] 0.39 mg/dL High 0.00-0.30 [facility] Comment on above: Performed By: #### L 500.3400, L100.0100, L500.2500 ####[facility] [address] [place], [address] Globulin (S) [Mass/Vol] 2.7 g/dL Normal 2.2-4.2 [facility] Comment on above: Performed By: #### L 500.3400, L100.0100, L500.2500 ####[facility] [address] [place], [address] T PROT 7.3 g/dL Normal 5.9-8.4 [facility] Comment on above: Performed By: #### L 500.3400, L100.0100, L500.2500 ####[facility] [address] [place], [address] MCV (mean corpuscular volume ) determinationOrdered By: Emerson Sierra on 09-14-2024 MCV (RBC) [Entitic vol] 96.5 fL 81-99 [facility] Mean corpuscular hemoglobin (MCH) determinationOrdered By: Emerson Sierra on 09-14-2024 MCH (RBC) [Entitic mass] 30.7 pg 27.0-32.0 [facility] Monocyte percentageOrdered B y: Emerson Sierra on 09-14-2024 Monocytes/100 WBC (Bld) 8.8 % 0-10 [facility] Neutrophil percentageOrdered By: Emerson Sierra on 09-14-2024 Neutrophils/100 WBC (Bld) 83.5 % High 47-70 [facility] No Panel InformationOrdered By: Emerson Sierra on 09-14-2024 443 U/L High <32 [facility] Platelet countOrdered By: Yaniv Sierra on 09-14-2024 Platelets (Bld) [#/Vol] 339 10*3/uL 150-450 [facility] Potassium measurement (mass/ volume)Ordered By: Emerson Sierra on 09-14-2024 Potassium (Unsp spec) [Mass/Vol] 4.6 mmol/L 3.3-5.1 [facility] RBC Auto (Bld) [#/Vol]Ordere d By: Emerson Sierra on 09-14-2024 RBC (Bld) [#/Vol] 3.98 10*6/uL Low 4.2-5.4 [facility] Serum creatinine measurement (mass/volume)Ordered By: Emerson Sierra on 09-14-2024 Creatinine [Mass/Vol] 0.98 mg/dL 0.70-1.20 [facility] Serum globulin measurementOr dered By: Emerson Sierra on 09-14-2024 Globulin (S) [Mass/Vol] 2.7 g/dL 2.2-4.2 [facility] Serum glucose measurement (m ass/volume)Ordered By: Emerson Sierra on 09-14-2024 Glucose [Mass/Vol] 119 mg/dL High 70-99 [facility] Serum or plasma alanine hair otransferase (ALT) measurementOrdered By: Emerson Sierra on 09-14-2024 ALT [Catalytic activity/Vol] 322 U/L High <35 [facility] Serum or plasma albumin leslie urement (mass/volume)Ordered By: Emerson Sierra on 09-14-2024 Albumin [Mass/Vol] 4.6 g/dL 3.5-5.0 [facility] Serum or plasma alkaline delfin sphatase measurementOrdered By: Emerson Sierra on 09-14-2024 ALP [Catalytic activity/Vol] 153 U/L High 35-104 [facility] Serum or plasma calcium leslie urement (mass/volume)Ordered By: Emerson Sierra on 09-14-2024 Calcium [Mass/Vol] 9.6 mg/dL 7.6-11.0 [facility] Serum or plasma urea nitroge n measurement (mass/volume)Ordered By: Emerson Sierra on 09-14-2024 Urea nitrogen [Mass/Vol] 19 mg/dL 4-19 [facility] Sodium levelOrdered By: Wilton Sierra on 09-14-2024 Sodium [Moles/Vol] 131 mmol/L Low 133-145 [facility] Total proteinOrdered By: Bernie heredia Rigo on 09-14-2024 Protein [Mass/Vol] 7.3 g/dL 5.9-8.4 [facility] White blood cell (WBC) count Ordered By: Emersonzoie Sierra on 09-14-2024 WBC (Bld) [#/Vol] 17.3 10*3/uL High 4.4-11.0 [facility] Basic Metabolic Profile (BMP )on 09-13-2024 BUN/CRE 21.6 RATIO High 10-20 [facility] Comment on above: Performed By: #### L 501.2300, L500.2500, L500.3400 ####[facility] [address] [place], [address] Calcium [Mass/Vol] 9.7 mg/dL Normal 7.6-11.0 [facility] Comment on above: Performed By: #### L 501.2300, L500.2500, L500.3400 ####[facility] [address] [place], [address] Chloride [Moles/Vol] 101 mmol/L Normal 98-108 [facility] Comment on above: Performed By: #### L 501.2300, L500.2500, L500.3400 ####[facility] [address] [place], [address] CO2 [Moles/Vol] 17.5 mmol/L Low 21.0-32.0 [facility] Comment on above: Performed By: #### L 501.2300, L500.2500, L500.3400 ####[facility] [address] [place], [address] Creatinine [Mass/Vol] 0.87 mg/dL Normal 0.70-1.20 [facility] Comment on above: Performed By: #### L 501.2300, L500.2500, L500.3400 ####[facility] [address] [place], [address] ECRCL 71.26 ml/min Normal 50-250 [facility] Comment on above: Performed By: #### L 501.2300, L500.2500, L500.3400 ####[facility] [address] [place], [address] GAP 15 Normal 5-15 [facility] Comment on above: Performed By: #### L 501.2300, L500.2500, L500.3400 ####[facility] [address] [place], [address] GFR/1.73 sq M.predicted among non-blacks MDRD (S/P/Bld) [Vol rate/Area] 85 mL/min/{1.73_m2} Normal >60 [facility] Comment on above: Result Comment: mL/m in/1.73m2 CKD-EPI Creatinine Equation (2020) Performed By: #### L 501.2300, L500.2500, L500.3400 ####[facility] [address] [place], [address] Glucose [Mass/Vol] 79 mg/dL Normal 70-99 [facility] Comment on above: Performed By: #### L 501.2300, L500.2500, L500.3400 ####[facility] [address] [place], [address] Potassium [Moles/Vol] 5.0 mmol/L Normal 3.3-5.1 [facility] Comment on above: Performed By: #### L 501.2300, L500.2500, L500.3400 ####[facility] [address] [place], [address] Sodium [Moles/Vol] 133 mmol/L Normal 133-145 [facility] Comment on above: Performed By: #### L 501.2300, L500.2500, L500.3400 ####[facility] [address] [place], [address] Urea nitrogen [Mass/Vol] 19 mg/dL Normal 4-19 [facility] Comment on above: Performed By: #### L 501.2300, L500.2500, L500.3400 ####[facility] [address] [place], [address] CBC W/Diff, Automatedon 07-0 3-2025 Absolute Lymph 1.21 X10 3/uL Normal 0.83-4.51 [facility] Comment on above: Performed By: #### L 100.0100 ####[facility] [address] [place], [address] Absolute Neut 16.5 X10 3/uL High 2.0-7.7 [facility] Comment on above: Performed By: #### L 100.0100 ####[facility] [address] [place], [address] Basophils/100 WBC (Bld) 0.2 % Normal 0-1 [facility] Comment on above: Performed By: #### L 100.0100 ####[facility] [address] [place], [address] Eosinophils/100 WBC (Bld) 0.1 % Normal 0-5 [facility] Comment on above: Performed By: #### L 100.0100 ####[facility] [address] [place], [address] Erythrocyte distribution width (RBC) [Ratio] 14.5 % Normal 11.6-14.6 [facility] Comment on above: Performed By: #### L 100.0100 ####[facility] [address] [place], [address] Hematocrit (Bld) [Volume fraction] 41.1 % Normal 37-47 [facility] Comment on above: Performed By: #### L 100.0100 ####[facility] [address] [place], [address] Hemoglobin (Bld) [Mass/Vol] 12.7 g/dL Normal 12.0-15.0 [facility] Comment on above: Performed By: #### L 100.0100 ####[facility] [address] [place], [address] IG% 0.900 Normal 0.0-0.9 [facility] Comment on above: Result Comment: IG% - Immature Granulocytes (promyelocytes, myelocytes andmetamyelocytes) > 1% indicates that a LEFT SHIFT is Present. Performed By: #### L 100.0100 ####[facility] [address] [place], [address] Lymphocytes/100 WBC (Bld) 6.3 % Low 19-41 [facility] Comment on above: Performed By: #### L 100.0100 ####[facility] [address] [place], [address] MCH (RBC) [Entitic mass] 30.7 pg Normal 27.0-32.0 [facility] Comment on above: Performed By: #### L 100.0100 ####[facility] [address] [place], [address] MCHC (RBC) [Mass/Vol] 30.9 g/dL Low 32-36 [facility] Comment on above: Performed By: #### L 100.0100 ####[facility] [address] [place], [address] MCV (RBC) [Entitic vol] 99.3 fL High 81-99 [facility] Comment on above: Performed By: #### L 100.0100 ####[facility] [address] [place], [address] Monocytes/100 WBC (Bld) 6.7 % Normal 0-10 [facility] Comment on above: Performed By: #### L 100.0100 ####[facility] [address] [place], [address] Neutrophils/100 WBC (Bld) 85.8 % High 47-70 [facility] Comment on above: Performed By: #### L 100.0100 ####[facility] [address] [place], [address] Nucleated RBC (Bld) [#/Vol] 0 10*3/uL Normal 0-5 [facility] Comment on above: Performed By: #### L 100.0100 ####[facility] [address] [place], [address] Platelet mean volume (Bld) [Entitic vol] 10.5 fL Normal 6.2-12.0 [facility] Comment on above: Performed By: #### L 100.0100 ####[facility] [address] [place], [address] Platelets (Bld) [#/Vol] 359 10*3/uL Normal 150-450 [facility] Comment on above: Performed By: #### L 100.0100 ####[facility] [address] [place], [address] RBC (Bld) [#/Vol] 4.14 10*6/uL Low 4.2-5.4 [facility] Comment on above: Performed By: #### L 100.0100 ####[facility] [address] [place], [address] RDW SD 52.7 fl High 35.1-43.9 [facility] Comment on above: Performed By: #### L 100.0100 ####[facility] [address] [place], [address] WBC (Bld) [#/Vol] 19.2 10*3/uL High 4.4-11.0 [facility] Comment on above: Performed By: #### L 100.0100 ####[facility] [address] [place], [address] Discharge Instructionon 070 Discharge Instruction Normal [facility] Gamma glutamyl transferase ( GGT) measurementOrdered By: Emerson Sierra on 09-13-2024 Amylase [Catalytic activity/Vol] 45 U/L 0-60 [facility] L501.5101on 09-13-2024 GGTP 39 IU/L Normal 0-60 [facility] Comment on above: Result Comment: Perf ormed at: [facility] [address] [id number] Director: Victor M Hargrove PhD, Phone: [phone] Performed By: #### L 501.5101 ####[facility] [address] [place], [address] Liver Profileon 09-13-2024 Albumin [Mass/Vol] 4.5 g/dL Normal 3.5-5.0 [facility] Comment on above: Performed By: #### L 501.2300, L500.2500, L500.3400 ####[facility] [address] [place], [address] ALK PHOS 146 U/L High 35-104 [facility] Comment on above: Performed By: #### L 501.2300, L500.2500, L500.3400 ####[facility] [address] [place], [address] ALT [Catalytic activity/Vol] 28 U/L Normal <=34 [facility] Comment on above: Performed By: #### L 501.2300, L500.2500, L500.3400 ####[facility] [address] [place], [address] AST [Catalytic activity/Vol] 34 U/L High <=31 [facility] Comment on above: Performed By: #### L 501.2300, L500.2500, L500.3400 ####[facility] [address] [place], [address] Bilirubin [Mass/Vol] 1.13 mg/dL Normal 0.00-1.30 [facility] Comment on above: Performed By: #### L 501.2300, L500.2500, L500.3400 ####[facility] [address] [place], [address] Bilirubin.direct [Mass/Vol] 0.41 mg/dL High 0.00-0.30 [facility] Comment on above: Performed By: #### L 501.2300, L500.2500, L500.3400 ####[facility] [address] [place], [address] Globulin (S) [Mass/Vol] 2.8 g/dL Normal 2.2-4.2 [facility] Comment on above: Performed By: #### L 501.2300, L500.2500, L500.3400 ####[facility] [address] [place], [address] T PROT 7.3 g/dL Normal 5.9-8.4 [facility] Comment on above: Performed By: #### L 501.2300, L500.2500, L500.3400 ####[facility] [address] [place], [address] Phosphoruson 09-13-2024 Phosphate [Mass/Vol] 5.2 mg/dL High 2.7-4.5 [facility] Comment on above: Performed By: #### L 501.2300, L500.2500, L500.3400 ####[facility] [address] [place], [address] CBC W/Diff, Automatedon 07- Absolute Lymph 0.53 X10 3/uL Low 0.83-4.51 [facility] Comment on above: Performed By: #### L 500.4050, L501.2300, L100.0100, L501.2450, L501.9520 ####[facility] [address] [place], [address] Absolute Neut 17.7 X10 3/uL High 2.0-7.7 [facility] Comment on above: Performed By: #### L 500.4050, L501.2300, L100.0100, L501.2450, L501.9520 ####[facility] [address] [place], [address] Basophils/100 WBC (Bld) 0.2 % Normal 0-1 [facility] Comment on above: Performed By: #### L 500.4050, L501.2300, L100.0100, L501.2450, L501.9520 ####[facility] [address] [place], [address] Eosinophils/100 WBC (Bld) 0.0 % Normal 0-5 [facility] Comment on above: Performed By: #### L 500.4050, L501.2300, L100.0100, L501.2450, L501.9520 ####[facility] [address] [place], [address] Erythrocyte distribution width (RBC) [Ratio] 14.6 % Normal 11.6-14.6 [facility] Comment on above: Performed By: #### L 500.4050, L501.2300, L100.0100, L501.2450, L501.9520 ####[facility] [address] [place], [address] Hematocrit (Bld) [Volume fraction] 42.4 % Normal 37-47 [facility] Comment on above: Performed By: #### L 500.4050, L501.2300, L100.0100, L501.2450, L501.9520 ####[facility] [address] [place], [address] Hemoglobin (Bld) [Mass/Vol] 13.5 g/dL Normal 12.0-15.0 [facility] Comment on above: Performed By: #### L 500.4050, L501.2300, L100.0100, L501.2450, L501.9520 ####[facility] [address] [place], [address] IG% 0.500 Normal 0.0-0.9 [facility] Comment on above: Result Comment: IG% - Immature Granulocytes (promyelocytes, myelocytes andmetamyelocytes) > 1% indicates that a LEFT SHIFT is Present. Performed By: #### L 500.4050, L501.2300, L100.0100, L501.2450, L501.9520 ####[facility] [address] [place], [address] Lymphocytes/100 WBC (Bld) 2.8 % Low 19-41 [facility] Comment on above: Performed By: #### L 500.4050, L501.2300, L100.0100, L501.2450, L501.9520 ####[facility] [address] [place], [address] MCH (RBC) [Entitic mass] 30.9 pg Normal 27.0-32.0 [facility] Comment on above: Performed By: #### L 500.4050, L501.2300, L100.0100, L501.2450, L501.9520 ####[facility] [address] [place], [address] MCHC (RBC) [Mass/Vol] 31.8 g/dL Low 32-36 [facility] Comment on above: Performed By: #### L 500.4050, L501.2300, L100.0100, L501.2450, L501.9520 ####[facility] [address] [place], [address] MCV (RBC) [Entitic vol] 97.0 fL Normal 81-99 [facility] Comment on above: Performed By: #### L 500.4050, L501.2300, L100.0100, L501.2450, L501.9520 ####[facility] [address] [place], [address] Monocytes/100 WBC (Bld) 1.7 % Normal 0-10 [facility] Comment on above: Performed By: #### L 500.4050, L501.2300, L100.0100, L501.2450, L501.9520 ####[facility] [address] [place], [address] Neutrophils/100 WBC (Bld) 94.8 % High 47-70 [facility] Comment on above: Performed By: #### L 500.4050, L501.2300, L100.0100, L501.2450, L501.9520 ####[facility] [address] [place], [address] Nucleated RBC (Bld) [#/Vol] 0 10*3/uL Normal 0-5 [facility] Comment on above: Performed By: #### L 500.4050, L501.2300, L100.0100, L501.2450, L501.9520 ####[facility] [address] [place], [address] Platelet mean volume (Bld) [Entitic vol] 10.4 fL Normal 6.2-12.0 [facility] Comment on above: Performed By: #### L 500.4050, L501.2300, L100.0100, L501.2450, L501.9520 ####[facility] [address] [place], [address] Platelets (Bld) [#/Vol] 309 10*3/uL Normal 150-450 [facility] Comment on above: Performed By: #### L 500.4050, L501.2300, L100.0100, L501.2450, L501.9520 ####[facility] [address] [place], [address] RBC (Bld) [#/Vol] 4.37 10*6/uL Normal 4.2-5.4 [facility] Comment on above: Performed By: #### L 500.4050, L501.2300, L100.0100, L501.2450, L501.9520 ####[facility] [address] [place], [address] RDW SD 51.8 fl High 35.1-43.9 [facility] Comment on above: Performed By: #### L 500.4050, L501.2300, L100.0100, L501.2450, L501.9520 ####[facility] [address] [place], [address] WBC (Bld) [#/Vol] 18.7 10*3/uL High 4.4-11.0 [facility] Comment on above: Performed By: #### L 500.4050, L501.2300, L100.0100, L501.2450, L501.9520 ####[facility] [address] [place], [address] CT Abd/Pelvis W/WO Contrasto n 09-12-2024 CT Abd/Pelvis W/WO Contrast Normal [facility] Comprehensive Metabolic Prof ilon 09-12-2024 Albumin [Mass/Vol] 4.2 g/dL Normal 3.5-5.0 [facility] Comment on above: Performed By: #### L 500.4050, L501.2300, L100.0100, L501.2450, L501.9520 ####[facility] [address] [place], [address] Albumin/Globulin [Mass ratio] 1.5 {ratio} Normal 0.9-2.4 [facility] Comment on above: Performed By: #### L 500.4050, L501.2300, L100.0100, L501.2450, L501.9520 ####[facility] [address] [place], [address] ALK PHOS 146 U/L High 35-104 [facility] Comment on above: Performed By: #### L 500.4050, L501.2300, L100.0100, L501.2450, L501.9520 ####[facility] [address] [place], [address] ALT [Catalytic activity/Vol] 19 U/L Normal <=34 [facility] Comment on above: Performed By: #### L 500.4050, L501.2300, L100.0100, L501.2450, L501.9520 ####[facility] [address] [place], [address] AST [Catalytic activity/Vol] 28 U/L Normal <=31 [facility] Comment on above: Result Comment: Hemo lysis present, Results??could be affected.?? Performed By: #### L 500.4050, L501.2300, L100.0100, L501.2450, L501.9520 ####[facility] [address] [place], [address] Bilirubin [Mass/Vol] 1.02 mg/dL Normal 0.00-1.30 [facility] Comment on above: Performed By: #### L 500.4050, L501.2300, L100.0100, L501.2450, L501.9520 ####[facility] [address] [place], [address] BUN/CRE 21.9 RATIO High 10-20 [facility] Comment on above: Performed By: #### L 500.4050, L501.2300, L100.0100, L501.2450, L501.9520 ####[facility] [address] [place], [address] Calcium [Mass/Vol] 9.0 mg/dL Normal 7.6-11.0 [facility] Comment on above: Performed By: #### L 500.4050, L501.2300, L100.0100, L501.2450, L501.9520 ####[facility] [address] [place], [address] Chloride [Moles/Vol] 104 mmol/L Normal 98-108 [facility] Comment on above: Performed By: #### L 500.4050, L501.2300, L100.0100, L501.2450, L501.9520 ####[facility] [address] [place], [address] CO2 [Moles/Vol] 15.3 mmol/L Low 21.0-32.0 [facility] Comment on above: Performed By: #### L 500.4050, L501.2300, L100.0100, L501.2450, L501.9520 ####[facility] [address] [place], [address] Creatinine [Mass/Vol] 0.74 mg/dL Normal 0.70-1.20 [facility] Comment on above: Performed By: #### L 500.4050, L501.2300, L100.0100, L501.2450, L501.9520 ####[facility] [address] [place], [address] ECRCL 83.77 ml/min Normal 50-250 [facility] Comment on above: Performed By: #### L 500.4050, L501.2300, L100.0100, L501.2450, L501.9520 ####[facility] [address] [place], [address] GAP 15 Normal 5-15 [facility] Comment on above: Performed By: #### L 500.4050, L501.2300, L100.0100, L501.2450, L501.9520 ####[facility] [address] [place], [address] GFR/1.73 sq M.predicted among non-blacks MDRD (S/P/Bld) [Vol rate/Area] 102 mL/min/{1.73_m2} Normal >60 [facility] Comment on above: Result Comment: mL/m in/1.73m2 CKD-EPI Creatinine Equation (2020) Performed By: #### L 500.4050, L501.2300, L100.0100, L501.2450, L501.9520 ####[facility] [address] [place], [address] Globulin (S) [Mass/Vol] 2.8 g/dL Normal 2.2-4.2 [facility] Comment on above: Performed By: #### L 500.4050, L501.2300, L100.0100, L501.2450, L501.9520 ####[facility] [address] [place], [address] Glucose [Mass/Vol] 123 mg/dL High 70-99 [facility] Comment on above: Performed By: #### L 500.4050, L501.2300, L100.0100, L501.2450, L501.9520 ####[facility] [address] [place], [address] Potassium [Moles/Vol] 4.8 mmol/L Normal 3.3-5.1 [facility] Comment on above: Result Comment: Hemo lysis present, Results??could be affected.?? Performed By: #### L 500.4050, L501.2300, L100.0100, L501.2450, L501.9520 ####[facility] [address] [place], [address] Sodium [Moles/Vol] 135 mmol/L Normal 133-145 [facility] Comment on above: Performed By: #### L 500.4050, L501.2300, L100.0100, L501.2450, L501.9520 ####[facility] [address] [place], [address] T PROT 7.0 g/dL Normal 5.9-8.4 [facility] Comment on above: Performed By: #### L 500.4050, L501.2300, L100.0100, L501.2450, L501.9520 ####[facility] [address] [place], [address] Urea nitrogen [Mass/Vol] 16 mg/dL Normal 4-19 [facility] Comment on above: Performed By: #### L 500.4050, L501.2300, L100.0100, L501.2450, L501.9520 ####[facility] [address] [place], [address] Lipaseon 09-12-2024 Lipase [Catalytic activity/Vol] 50 U/L Normal 13-75 [facility] Comment on above: Result Comment: Plea se note:LIPASE revised reference range effective 22.New Lipase methodology. Expected to produce lower valuesthan the previous assay method.NEW Reference Range: 13 - 75 U/L Performed By: #### L 500.4050, L501.2300, L100.0100, L501.2450, L501.9520 ####[facility] [address] [place], [address] MR/CON.PCM.GIon 09-12-2024 MR/CON.PCM.GI Normal [facility] Magnesiumon 09-12-2024 Magnesium [Mass/Vol] 1.8 mg/dL Normal 1.5-2.2 [facility] Comment on above: Performed By: #### L 501.5200 ####[facility] [address] [place], [address] Phosphoruson 09-12-2024 Phosphate [Mass/Vol] 3.7 mg/dL Normal 2.7-4.5 [facility] Comment on above: Performed By: #### L 500.4050, L501.2300, L100.0100, L501.2450, L501.9520 ####[facility] [address] [place], [address] Serum or plasma albumin/glob ulin mass ratioOrdered By: Sergio Whalen on 09-12-2024 Albumin/Globulin [Mass ratio] 1.5 {ratio} 0.9-2.4 [facility] TSH DL <= 0.005 mIU/L QnOrde red By: Sergio Whalen on 09-12-2024 TSH Qn 1.410 uIU/mL 0.300-4.20 0 [facility] Thyroid Stim Hormone (TSH)on 09-12-2024 TSH 1.410 uIU/mL Normal 0.300-4.20 0 [facility] Comment on above: Performed By: #### L 500.4050, L501.2300, L100.0100, L501.2450, L501.9520 ####[facility] [address] [place], [address] Abdomen/Pelvis W IV Cont ONL Yon 09-11-2024 Abdomen/Pelvis W IV Cont ONLY Normal [facility] Absolute lymphocyte countOrd ered By: Gage Sharma on 09-11-2024 Lymphocytes Auto (Unsp spec) [#/Vol] 0.49 10*3/uL Low 0.83-4.51 [facility] Anion gap in Serum or Plasma Ordered By: Gage Sharma on 09-11-2024 Anion gap [Moles/Vol] 15 mmol/L 5-15 [facility] Automated blood erythrocyte countOrdered By: Gagejuan Sharma on 09-11-2024 RBC (Bld) [#/Vol] 4.45 10*6/uL Normal 4.2-5.4 [facility] Comment on above: Performed By: #### L 500.3400, L503.6005, L500.2500, L501.2450, L100.0100 ####[facility] [address] [place], [place], [id number] Automated blood hematocrit ( percentage)Ordered By: Gage Sharma on 09-11-2024 Hematocrit (Bld) [Volume fraction] 42.0 % Normal 37-47 [facility] Comment on above: Performed By: #### L 500.3400, L503.6005, L500.2500, L501.2450, L100.0100 ####[facility] [address] [place], [place], [id number] Automated lymphocyte count a s percentage of total leukocytesOrdered By: Gage Sharma on 09-11-2024 Lymphocytes/100 WBC Auto (Unsp spec) 3.6 % Low 19-41 [facility] BUN/creatinine ratioOrdered By: Gage Sharma on 09-11-2024 Urea nitrogen/Creatinine [Mass ratio] 24.2 mg/mg High 10-20 [facility] Basic Metabolic Profile (BMP )on 09-11-2024 BUN/CRE 24.2 RATIO High - [facility] Comment on above: Performed By: #### L 500.3400, L503.6005, L500.2500, L501.2450, L100.0100 ####[facility] [address] [place], [place], [id number] ECRCL 80.51 ml/min Normal 50-250 [facility] Comment on above: Performed By: #### L 500.3400, L503.6005, L500.2500, L501.2450, L100.0100 ####[facility] [address] [place], [address] GAP 15 Normal 5-15 [facility] Comment on above: Performed By: #### L 500.3400, L503.6005, L500.2500, L501.2450, L100.0100 ####[facility] [address] [place], [address] Potassium [Moles/Vol] 4.1 mmol/L Normal 3.3-5.1 [facility] Comment on above: Performed By: #### L 500.3400, L503.6005, L500.2500, L501.2450, L100.0100 ####[facility] [address] [place], [address] Basophil percentageOrdered B y: Gage Sharma on 09-11-2024 Basophils/100 WBC (Bld) 0.3 % Normal 0-1 [facility] Comment on above: Performed By: #### L 500.3400, L503.6005, L500.2500, L501.2450, L100.0100 ####[facility] [address] [place], [address] Bilirubin Test strip Ql (U)O rdered By: Gage Sharma on 09-11-2024 Bilirubin Ql (U) Negative Negative [facility] Bilirubin directOrdered By: Gagejuan Sharma on 09-11-2024 Bilirubin.direct [Mass/Vol] 0.50 mg/dL High 0.00-0.30 [facility] Comment on above: Performed By: #### L 500.3400, L503.6005, L500.2500, L501.2450, L100.0100 ####[facility] [address] [place], [address] Bilirubin, totalOrdered By: Gage Sharma on 09-11-2024 Bilirubin [Mass/Vol] 0.97 mg/dL Normal 0.00-1.30 [facility] Comment on above: Performed By: #### L 500.3400, L503.6005, L500.2500, L501.2450, L100.0100 ####[facility] [address] [place], [address] CBC W/Diff, Automatedon 07-0 Absolute Lymph 0.49 X10 3/uL Low 0.83-4.51 [facility] Comment on above: Performed By: #### L 500.3400, L503.6005, L500.2500, L501.2450, L100.0100 ####[facility] [address] [place], [address] Absolute Neut 13.0 X10 3/uL High 2.0-7.7 [facility] Comment on above: Performed By: #### L 500.3400, L503.6005, L500.2500, L501.2450, L100.0100 ####[facility] [address] [place], [address] IG% 0.600 Normal 0.0-0.9 [facility] Comment on above: Result Comment: IG% - Immature Granulocytes (promyelocytes, myelocytes andmetamyelocytes) > 1% indicates that a LEFT SHIFT is Present. Performed By: #### L 500.3400, L503.6005, L500.2500, L501.2450, L100.0100 ####[facility] [address] [place], [address] Lymphocytes/100 WBC (Bld) 3.6 % Low 19-41 [facility] Comment on above: Performed By: #### L 500.3400, L503.6005, L500.2500, L501.2450, L100.0100 ####[facility] [address] [place], [address] MCHC (RBC) [Mass/Vol] 32.9 g/dL Normal 32-36 [facility] Comment on above: Performed By: #### L 500.3400, L503.6005, L500.2500, L501.2450, L100.0100 ####[facility] [address] [place], [address] Nucleated RBC (Bld) [#/Vol] 0 10*3/uL Normal 0-5 [facility] Comment on above: Performed By: #### L 500.3400, L503.6005, L500.2500, L501.2450, L100.0100 ####[facility] [address] [place], [address] Platelet mean volume (Bld) [Entitic vol] 10.2 fL Normal 6.2-12.0 [facility] Comment on above: Performed By: #### L 500.3400, L503.6005, L500.2500, L501.2450, L100.0100 ####[facility] [address] [place], [address] RDW SD 49.9 fl High 35.1-43.9 [facility] Comment on above: Performed By: #### L 500.3400, L503.6005, L500.2500, L501.2450, L100.0100 ####[facility] [address] [place], [address] Absolute Lymph 0.51 X10 3/uL Low 0.83-4.51 [facility] Comment on above: Performed By: #### L 500.4050, L100.0100, L501.2450 ####[facility] [address] [place], [address] Absolute Neut 14.0 X10 3/uL High 2.0-7.7 [facility] Comment on above: Performed By: #### L 500.4050, L100.0100, L501.2450 ####[facility] [address] [place], [address] Basophils/100 WBC (Bld) 0.4 % Normal 0-1 [facility] Comment on above: Performed By: #### L 500.4050, L100.0100, L501.2450 ####[facility] [address] [place], [address] Erythrocyte distribution width (RBC) [Ratio] 14.5 % Normal 11.6-14.6 [facility] Comment on above: Performed By: #### L 500.4050, L100.0100, L501.2450 ####[facility] [address] [place], [address] Hematocrit (Bld) [Volume fraction] 43.2 % Normal 37-47 [facility] Comment on above: Performed By: #### L 500.4050, L100.0100, L501.2450 ####[facility] [address] [place], [address] Hemoglobin (Bld) [Mass/Vol] 14.1 g/dL Normal 12.0-15.0 [facility] Comment on above: Performed By: #### L 500.4050, L100.0100, L501.2450 ####[facility] [address] [place], [address] IG% 0.500 Normal 0.0-0.9 [facility] Comment on above: Result Comment: IG% - Immature Granulocytes (promyelocytes, myelocytes andmetamyelocytes) > 1% indicates that a LEFT SHIFT is Present. Performed By: #### L 500.4050, L100.0100, L501.2450 ####[facility] [address] [place], [address] Lymphocytes/100 WBC (Bld) 3.5 % Low 19-41 [facility] Comment on above: Performed By: #### L 500.4050, L100.0100, L501.2450 ####[facility] [address] [place], [address] MCH (RBC) [Entitic mass] 30.7 pg Normal 27.0-32.0 [facility] Comment on above: Performed By: #### L 500.4050, L100.0100, L501.2450 ####[facility] [address] [place], [address] MCHC (RBC) [Mass/Vol] 32.6 g/dL Normal 32-36 [facility] Comment on above: Performed By: #### L 500.4050, L100.0100, L501.2450 ####[facility] [address] [place], [address] MCV (RBC) [Entitic vol] 93.9 fL Normal 81-99 [facility] Comment on above: Performed By: #### L 500.4050, L100.0100, L501.2450 ####[facility] [address] [place], [address] Neutrophils/100 WBC (Bld) 94.8 % High 47-70 [facility] Comment on above: Performed By: #### L 500.4050, L100.0100, L501.2450 ####[facility] [address] [place], [address] Nucleated RBC (Bld) [#/Vol] 0 10*3/uL Normal 0-5 [facility] Comment on above: Performed By: #### L 500.4050, L100.0100, L501.2450 ####[facility] [address] [place], [address] Platelet mean volume (Bld) [Entitic vol] 11.1 fL Normal 6.2-12.0 [facility] Comment on above: Performed By: #### L 500.4050, L100.0100, L501.2450 ####[facility] [address] [place], [address] Platelets (Bld) [#/Vol] 338 10*3/uL Normal 150-450 [facility] Comment on above: Performed By: #### L 500.4050, L100.0100, L501.2450 ####[facility] [address] [place], [address] RBC (Bld) [#/Vol] 4.60 10*6/uL Normal 4.2-5.4 [facility] Comment on above: Performed By: #### L 500.4050, L100.0100, L501.2450 ####[facility] [address] [place], [address] RDW SD 49.7 fl High 35.1-43.9 [facility] Comment on above: Performed By: #### L 500.4050, L100.0100, L501.2450 ####[facility] [address] [place], [address] WBC (Bld) [#/Vol] 14.8 10*3/uL High 4.4-11.0 [facility] Comment on above: Performed By: #### L 500.4050, L100.0100, L501.2450 ####[facility] [address] [place], [address] Carbon dioxide, total [Moles /volume] in Central venous bloodOrdered By: Gage Sharma on 09-11-2024 CO2 [Moles/Vol] 17.8 mmol/L Low 21.0-32.0 [facility] Comment on above: Performed By: #### L 500.3400, L503.6005, L500.2500, L501.2450, L100.0100 ####[facility] [address] [place], [address] Chloride assayOrdered By: Jose Maria Sharma on 09-11-2024 Chloride [Moles/Vol] 105 mmol/L Normal 98-108 [facility] Comment on above: Performed By: #### L 500.3400, L503.6005, L500.2500, L501.2450, L100.0100 ####[facility] [address] [place], [address] Comprehensive Metabolic Prof ilon 09-11-2024 Albumin/Globulin [Mass ratio] 1.4 {ratio} Normal 0.9-2.4 [facility] Comment on above: Performed By: #### L 500.4050, L100.0100, L501.2450 ####[facility] [address] [place], [address] ALK PHOS 164 U/L High 35-104 [facility] Comment on above: Performed By: #### L 500.4050, L100.0100, L501.2450 ####[facility] [address] [place], [address] ALT [Catalytic activity/Vol] 24 U/L Normal <=34 [facility] Comment on above: Performed By: #### L 500.4050, L100.0100, L501.2450 ####[facility] [address] [place], [address] AST [Catalytic activity/Vol] 27 U/L Normal <=31 [facility] Comment on above: Result Comment: Hemo lysis present, Results??could be affected.?? Performed By: #### L 500.4050, L100.0100, L501.2450 ####[facility] [address] [place], [address] Bilirubin [Mass/Vol] 0.87 mg/dL Normal 0.00-1.30 [facility] Comment on above: Performed By: #### L 500.4050, L100.0100, L501.2450 ####[facility] [address] [place], [address] BUN/CRE 20.4 RATIO High 10-20 [facility] Comment on above: Performed By: #### L 500.4050, L100.0100, L501.2450 ####[facility] [address] [place], [address] Calcium [Mass/Vol] 9.7 mg/dL Normal 7.6-11.0 [facility] Comment on above: Performed By: #### L 500.4050, L100.0100, L501.2450 ####[facility] [address] [place], [address] Chloride [Moles/Vol] 104 mmol/L Normal 98-108 [facility] Comment on above: Performed By: #### L 500.4050, L100.0100, L501.2450 ####[facility] [address] [place], [address] CO2 [Moles/Vol] 18.9 mmol/L Low 21.0-32.0 [facility] Comment on above: Performed By: #### L 500.4050, L100.0100, L501.2450 ####[facility] [address] [place], [address] Creatinine [Mass/Vol] 0.84 mg/dL Normal 0.70-1.20 [facility] Comment on above: Performed By: #### L 500.4050, L100.0100, L501.2450 ####[facility] [address] [place], [address] ECRCL 73.80 ml/min Normal 50-250 [facility] Comment on above: Performed By: #### L 500.4050, L100.0100, L501.2450 ####[facility] [address] [place], [address] GAP 14 Normal 5-15 [facility] Comment on above: Performed By: #### L 500.4050, L100.0100, L501.2450 ####[facility] [address] [place], [address] GFR/1.73 sq M.predicted among non-blacks MDRD (S/P/Bld) [Vol rate/Area] 88 mL/min/{1.73_m2} Normal >60 [facility] Comment on above: Result Comment: mL/m in/1.73m2 CKD-EPI Creatinine Equation (2020) Performed By: #### L 500.4050, L100.0100, L501.2450 ####[facility] [address] [place], [address] Globulin (S) [Mass/Vol] 3.1 g/dL Normal 2.2-4.2 [facility] Comment on above: Performed By: #### L 500.4050, L100.0100, L501.2450 ####[facility] [address] [place], [address] Glucose [Mass/Vol] 107 mg/dL High 70-99 [facility] Comment on above: Performed By: #### L 500.4050, L100.0100, L501.2450 ####[facility] [address] [place], [address] Potassium [Moles/Vol] 4.2 mmol/L Normal 3.3-5.1 [facility] Comment on above: Result Comment: Hemo lysis present, Results??could be affected.?? Performed By: #### L 500.4050, L100.0100, L501.2450 ####[facility] [address] [place], [address] Sodium [Moles/Vol] 137 mmol/L Normal 133-145 [facility] Comment on above: Performed By: #### L 500.4050, L100.0100, L501.2450 ####[facility] [address] [place], [address] T PROT 7.5 g/dL Normal 5.9-8.4 [facility] Comment on above: Performed By: #### L 500.4050, L100.0100, L501.2450 ####[facility] [address] [place], [address] Urea nitrogen [Mass/Vol] 17 mg/dL Normal 4-19 [facility] Comment on above: Performed By: #### L 500.4050, L100.0100, L501.2450 ####[facility] [address] [place], [address] Emergency Department Summary on 09-11-2024 Emergency Department Summary Normal [facility] Eosinophil percentageOrdered By: Gage Sharma on 09-11-2024 Eosinophils/100 WBC (Bld) 0.1 % Normal 0-5 [facility] Comment on above: Performed By: #### L 500.3400, L503.6005, L500.2500, L501.2450, L100.0100 ####[facility] [address] [place], [address] Performed By: #### L 500.4050, L100.0100, L501.2450 ####[facility] [address] [place], [address] Erythrocyte distribution wid th ratioOrdered By: Gage Sharma on 09-11-2024 Erythrocyte distribution width (RBC) [Ratio] 14.6 % Normal 11.6-14.6 [facility] Comment on above: Performed By: #### L 500.3400, L503.6005, L500.2500, L501.2450, L100.0100 ####[facility] [address] [place], [address] Erythrocyte distribution wid th standard deviationOrdered By: Gage Batista on 09-11-2024 Erythrocyte distribution width (RBC) [Ratio] 49.9 fl High 35.1-43.9 [facility] Glomerular filtration rate ( GFR) estimation/1.73 sq m using serum, plasma, or whole bOrdered By: Gage Sharma on 09-11-2024 GFR/1.73 sq M.predicted among non-blacks MDRD (S/P/Bld) [Vol rate/Area] 97 mL/min/{1.73_m2} Normal >60 [facility] Comment on above: Result Comment: mL/m in/1.73m2 CKD-EPI Creatinine Equation (2020) Performed By: #### L 500.3400, L503.6005, L500.2500, L501.2450, L100.0100 ####[facility] [address] [place], [address] H AND P Exam - Hospitaliston 09-11-2024 H&P Exam - Hospitalist Normal [facility] Hemoglobin measurementOrdere d By: Gage Sharma on 09-11-2024 Hemoglobin (Bld) [Mass/Vol] 13.8 g/dL Normal 12.0-15.0 [facility] Comment on above: Performed By: #### L 500.3400, L503.6005, L500.2500, L501.2450, L100.0100 ####[facility] [address] [place], [address] Immature granulocytes/100 WB C Auto (Bld)Ordered By: Gage Sharma on 09-11-2024 Immature granulocytes/100 WBC (Bld) 0.600 % 0.0-0.9 [facility] Ketones Test strip Ql (U)Ord ered By: Gage Sharma on 09-11-2024 Ketones Ql (U) Negative Negative [facility] Lactic Acidon 09-11-2024 Lactate [Moles/Vol] 1.6 mmol/L Normal 0.0-2.0 [facility] Comment on above: Order Comment: Y Performed By: #### L 500.3400, L503.6005, L500.2500, L501.2450, L100.0100 ####[facility] [address] [place], [address] Lipaseon 09-11-2024 Lipase [Catalytic activity/Vol] 113 U/L High 13-75 [facility] Comment on above: Result Comment: Liam rader note:LIPASE revised reference range effective 22.New Lipase methodology. Expected to produce lower valuesthan the previous assay method.NEW Reference Range: 13 - 75 U/L Performed By: #### L 500.3400, L503.6005, L500.2500, L501.2450, L100.0100 ####[facility] [address] [place], [address] Lipase [Catalytic activity/Vol] 112 U/L High 13-75 [facility] Comment on above: Result Comment: Liam rader note:LIPASE revised reference range effective 22.New Lipase methodology. Expected to produce lower valuesthan the previous assay method.NEW Reference Range: 13 - 75 U/L Performed By: #### L 500.4050, L100.0100, L501.2450 ####[facility] [address] [place], [address] Liver Profileon 09-11-2024 ALK PHOS 163 U/L High 35-104 [facility] Comment on above: Performed By: #### L 500.3400, L503.6005, L500.2500, L501.2450, L100.0100 ####[facility] [address] [place], [address] AST [Catalytic activity/Vol] 23 U/L Normal <=31 [facility] Comment on above: Performed By: #### L 500.3400, L503.6005, L500.2500, L501.2450, L100.0100 ####[facility] [address] [place], [address] T PROT 7.4 g/dL Normal 5.9-8.4 [facility] Comment on above: Performed By: #### L 500.3400, L503.6005, L500.2500, L501.2450, L100.0100 ####[facility] [address] [place], [address] MCV (mean corpuscular volume ) determinationOrdered By: Gage Sharma on 09-11-2024 MCV (RBC) [Entitic vol] 94.4 fL Normal 81-99 [facility] Comment on above: Performed By: #### L 500.3400, L503.6005, L500.2500, L501.2450, L100.0100 ####[facility] [address] [place], [address] Magnesium measurement (mass/ volume)Ordered By: Sergio Whalen on 09-11-2024 Magnesium (Unsp spec) [Mass/Vol] 1.8 mg/dL 1.5-2.2 [facility] Mean corpuscular hemoglobin (MCH) determinationOrdered By: Gage Sharma on 09-11-2024 MCH (RBC) [Entitic mass] 31.0 pg Normal 27.0-32.0 [facility] Comment on above: Performed By: #### L 500.3400, L503.6005, L500.2500, L501.2450, L100.0100 ####[facility] [address] [place], [place], [address] Monocyte percentageOrdered B y: Gage Sharma on 09-11-2024 Monocytes/100 WBC (Bld) 0.7 % Normal 0-10 [facility] Comment on above: Performed By: #### L 500.3400, L503.6005, L500.2500, L501.2450, L100.0100 ####[facility] [address] [place], [place], [id number] Performed By: #### L 500.4050, L100.0100, L501.2450 ####[facility] [address] [place], [place], [id number] Mucus LM Ql (Urine sed)Order ed By: Gage Sharma on 09-11-2024 Mucus Ql (Urine sed) 0 SEEN /hpf [facility] Neutrophil percentageOrdered By: Gage Sharma on 09-11-2024 Neutrophils/100 WBC (Bld) 94.7 % High 47-70 [facility] Comment on above: Performed By: #### L 500.3400, L503.6005, L500.2500, L501.2450, L100.0100 ####[facility] [address] [place], [place], [id number] Nitrite Test strip Ql (U)Ord ered By: Gage Sharma on 09-11-2024 Nitrite Ql (U) Negative Negative [facility] No Panel InformationOrdered By: Gage Sharma on 09-11-2024 23 U/L <32 [facility] Platelet countOrdered By: Jose Maria Sharma on 09-11-2024 Platelets (Bld) [#/Vol] 349 10*3/uL Normal 150-450 [facility] Comment on above: Performed By: #### L 500.3400, L503.6005, L500.2500, L501.2450, L100.0100 ####[facility] [id number] [place], [address] Potassium measurement (mass/ volume)Ordered By: Gage Sharma on 09-11-2024 Potassium (Unsp spec) [Mass/Vol] 4.1 mmol/L 3.3-5.1 [facility] ,Serum,hCG Quali.on 09-11-2024 HCG, SERUM QUAL Negative Normal [facility] Comment on above: Performed By: #### L 700.6800 ####[facility] [id number] [place], [address] Protein Test strip Ql (U)Ord ered By: Gage Sharma on 09-11-2024 Protein Ql (U) 100 mg/dl High Negative [facility] Serum beta-hCG test, qualita tiveOrdered By: Gage Sharma on 09-11-2024 Beta HCG ( test) Ql Negative [facility] Serum creatinine measurement (mass/volume)Ordered By: Gage Sharma on 09-11-2024 Creatinine [Mass/Vol] 0.77 mg/dL Normal 0.70-1.20 [facility] Comment on above: Performed By: #### L 500.3400, L503.6005, L500.2500, L501.2450, L100.0100 ####[facility] [address] [place], [address] Serum globulin measurementOr dered By: Gage Sharma on 09-11-2024 Globulin (S) [Mass/Vol] 3.0 g/dL Normal 2.2-4.2 [facility] Comment on above: Performed By: #### L 500.3400, L503.6005, L500.2500, L501.2450, L100.0100 ####[facility] [address] [place], [address] Serum glucose measurement (m ass/volume)Ordered By: Gage Sharma on 09-11-2024 Glucose [Mass/Vol] 132 mg/dL High 70-99 [facility] Comment on above: Performed By: #### L 500.3400, L503.6005, L500.2500, L501.2450, L100.0100 ####[facility] [address] [place], [address] Serum or plasma alanine hair otransferase (ALT) measurementOrdered By: Gage Sharma on 09-11-2024 ALT [Catalytic activity/Vol] 17 U/L Normal <=34 [facility] Comment on above: Performed By: #### L 500.3400, L503.6005, L500.2500, L501.2450, L100.0100 ####[facility] [address] [place], [address] Serum or plasma albumin leslie urement (mass/volume)Ordered By: Gage Batista on 09-11-2024 Albumin [Mass/Vol] 4.4 g/dL Normal 3.5-5.0 [facility] Comment on above: Performed By: #### L 500.3400, L503.6005, L500.2500, L501.2450, L100.0100 ####[facility] [address] [place], [address] Performed By: #### L 500.4050, L100.0100, L501.2450 ####[facility] [address] [place], [address] Serum or plasma albumin/glob ulin mass ratioOrdered By: ED PROVIDER on 09-11-2024 Albumin/Globulin [Mass ratio] 1.4 {ratio} 0.9-2.4 [facility] Serum or plasma alkaline delfin sphatase measurementOrdered By: Gage Sharma on 09-11-2024 ALP [Catalytic activity/Vol] 163 U/L High 35-104 [facility] Serum or plasma calcium leslie urement (mass/volume)Ordered By: Gage Batista on 09-11-2024 Calcium [Mass/Vol] 9.4 mg/dL Normal 7.6-11.0 [facility] Comment on above: Performed By: #### L 500.3400, L503.6005, L500.2500, L501.2450, L100.0100 ####[facility] [address] [place], [place], [id number] Serum or plasma urea nitroge n measurement (mass/volume)Ordered By: Gage Sharma on 09-11-2024 Urea nitrogen [Mass/Vol] 19 mg/dL Normal 4-19 [facility] Comment on above: Performed By: #### L 500.3400, L503.6005, L500.2500, L501.2450, L100.0100 ####[facility] [address] [place], [place], [id number] Sodium levelOrdered By: Edd Sharma on 09-11-2024 Sodium [Moles/Vol] 138 mmol/L Normal 133-145 [facility] Comment on above: Performed By: #### L 500.3400, L503.6005, L500.2500, L501.2450, L100.0100 ####[facility] [address] [place], [place], [id number] Squamous epithelial cells de tection in urine sediment by light microscopyOrdered By: Gage Sharma on 09-11-2024 Epithelial cells.squamous LM Ql (Urine sed) 10-25 SEEN /hpf 5-10 [facility] Total proteinOrdered By: Zev Sharma on 09-11-2024 Protein [Mass/Vol] 7.4 g/dL 5.9-8.4 [facility] Urinalysis, Completeon 09-11 EPI,SQUAMOUS 10-25 SEEN Normal 5-10 [facility] Comment on above: Order Comment: COLLE CTOR TO SPECIFY Performed By: #### L 400.0001 ####[facility] [address] [place], [address] RBC 0-5 SEEN Normal 0-5 [facility] Comment on above: Order Comment: HARITHA CTOR TO SPECIFY Performed By: #### L 400.0001 ####[facility] [address] [place], [address] WBC 0-5 SEEN Normal 0-5 [facility] Comment on above: Order Comment: HARITHA CTOR TO SPECIFY Performed By: #### L 400.0001 ####[facility] [address] [place], [address] BACTERIA 0 SEEN Normal None Seen [facility] Comment on above: Order Comment: HARITHA CTOR TO SPECIFY Performed By: #### L 400.0001 ####[facility] [address] [place], [address] Mucus Ql (Urine sed) 0 SEEN Normal [facility] Comment on above: Order Comment: HARITHA CTOR TO SPECIFY Performed By: #### L 400.0001 ####[facility] [address] [place], [address] Urine clarityOrdered By: Zev Sharma on 09-11-2024 Clarity (U) Sl. Cloudy Clear [facility] Urine color determinationOrd ered By: Gage Sharma on 09-11-2024 Color (U) Yellow Yellow [facility] Urine glucose detectionOrder ed By: Gage Sharma on 09-11-2024 Glucose Ql (U) Normal mg/dl Normal [facility] Urine leukocyte esterase det ection by dipstickOrdered By: Gage Sharma on 09-11-2024 Leukocyte esterase Test strip Ql (U) Negative Negative [facility] Urine pHOrdered By: Gage Keller on 09-11-2024 pH (U) 7.0 [pH] 5.0 - 8.0 [facility] Urine sediment bacteria coun t by microscopy (number/high power field)Ordered By: Gage Sharma on 09-11-2024 Bacteria LM.HPF (Urine sed) [#/Area] 0 /[HPF] None Seen [facility] Urine specific gravity measu rementOrdered By: Gagejuan Sharma on 09-11-2024 Specific gravity (U) [Rel density] 1.010 1.002-1.03 0 [facility] Urine urobilinogen measureme ntOrdered By: Gage Edith on 09-11-2024 Urobilinogen Ql (U) 1 mg/dl High Normal [facility] White blood cell (WBC) count Ordered By: Gagejuan Sharma on 09-11-2024 WBC (Bld) [#/Vol] 13.7 10*3/uL High 4.4-11.0 [facility] Comment on above: Performed By: #### L 500.3400, L503.6005, L500.2500, L501.2450, L100.0100 ####[facility] [address] [place], [address] White blood cell countOrdere d By: Gage Sharma on 09-11-2024 White blood cell count 0-5 SEEN /hpf 0-5 [facility] CBC W/Diff, Automatedon 06- Absolute Neut Normal 2.0-7.7 [facility] Comment on above: Result Comment: Canc elled via OM: Order cancelled - Patient discharged Performed By: #### L 100.0100 ####[facility] [address] [place], [address] HCT Normal 37-47 [facility] Comment on above: Result Comment: Canc elled via OM: Order cancelled - Patient discharged Performed By: #### L 100.0100 ####[facility] [address] [place], [address] HGB Normal 12.0-15.0 [facility] Comment on above: Result Comment: Canc elled via OM: Order cancelled - Patient discharged Performed By: #### L 100.0100 ####[facility] [address] [place], [address] MCH Normal 27.0-32.0 [facility] Comment on above: Result Comment: Canc elled via OM: Order cancelled - Patient discharged Performed By: #### L 100.0100 ####[facility] [address] [place], [address] MCHC Normal 32-36 [facility] Comment on above: Result Comment: Canc elled via OM: Order cancelled - Patient discharged Performed By: #### L 100.0100 ####[facility] [address] [place], [address] MCV Normal 81-99 [facility] Comment on above: Result Comment: Canc elled via OM: Order cancelled - Patient discharged Performed By: #### L 100.0100 ####[facility] [address] [place], [address] NEUT% Normal 47-70 [facility] Comment on above: Result Comment: Canc elled via OM: Order cancelled - Patient discharged Performed By: #### L 100.0100 ####[facility] [address] [place], [address] PLT Normal 150-450 [facility] Comment on above: Result Comment: Canc elled via OM: Order cancelled - Patient discharged Performed By: #### L 100.0100 ####[facility] [address] [place], [address] RBC Normal 4.2-5.4 [facility] Comment on above: Result Comment: Canc elled via OM: Order cancelled - Patient discharged Performed By: #### L 100.0100 ####[facility] [address] [place], [address] RDW CV Normal 11.6-14.6 [facility] Comment on above: Result Comment: Canc elled via OM: Order cancelled - Patient discharged Performed By: #### L 100.0100 ####[facility] [address] [place], [address] RDW SD Normal 35.1-43.9 [facility] Comment on above: Result Comment: Canc elled via OM: Order cancelled - Patient discharged Performed By: #### L 100.0100 ####[facility] [address] [place], [address] WBC Normal 4.4-11.0 [facility] Comment on above: Result Comment: Canc elled via OM: Order cancelled - Patient discharged Performed By: #### L 100.0100 ####[facility] [address] [place], [address] CBC W/Diff, Automatedon - Absolute Neut Normal 2.0-7.7 [facility] Comment on above: Result Comment: Canc elled via OM: Order cancelled - Patient discharged Performed By: #### L 100.0100 ####[facility] [address] [place], [address] HCT Normal 37-47 [facility] Comment on above: Result Comment: Canc elled via OM: Order cancelled - Patient discharged Performed By: #### L 100.0100 ####[facility] [address] [place], [address] HGB Normal 12.0-15.0 [facility] Comment on above: Result Comment: Canc elled via OM: Order cancelled - Patient discharged Performed By: #### L 100.0100 ####[facility] [address] [place], [address] MCH Normal 27.0-32.0 [facility] Comment on above: Result Comment: Canc elled via OM: Order cancelled - Patient discharged Performed By: #### L 100.0100 ####[facility] [address] [place], [address] MCHC Normal 32-36 [facility] Comment on above: Result Comment: Canc elled via OM: Order cancelled - Patient discharged Performed By: #### L 100.0100 ####[facility] [address] [place], [address] MCV Normal 81-99 [facility] Comment on above: Result Comment: Canc elled via OM: Order cancelled - Patient discharged Performed By: #### L 100.0100 ####[facility] [address] [place], [address] NEUT% Normal 47-70 [facility] Comment on above: Result Comment: Canc elled via OM: Order cancelled - Patient discharged Performed By: #### L 100.0100 ####[facility] [address] [place], [address] PLT Normal 150-450 [facility] Comment on above: Result Comment: Canc elled via OM: Order cancelled - Patient discharged Performed By: #### L 100.0100 ####[facility] [address] [place], [address] RBC Normal 4.2-5.4 [facility] Comment on above: Result Comment: Canc elled via OM: Order cancelled - Patient discharged Performed By: #### L 100.0100 ####[facility] [address] [place], [address] RDW CV Normal 11.6-14.6 [facility] Comment on above: Result Comment: Canc elled via OM: Order cancelled - Patient discharged Performed By: #### L 100.0100 ####[facility] [address] [place], [address] RDW SD Normal 35.1-43.9 [facility] Comment on above: Result Comment: Canc elled via OM: Order cancelled - Patient discharged Performed By: #### L 100.0100 ####[facility] [address] [place], [address] WBC Normal 4.4-11.0 [facility] Comment on above: Result Comment: Canc elled via OM: Order cancelled - Patient discharged Performed By: #### L 100.0100 ####[facility] [address] [place], [address] Gastric Emptying Studyon -2024 Gastric Emptying Study Normal [facility] CBC W/Diff, Automatedon 08-12 Absolute Neut Normal 2.0-7.7 [facility] Comment on above: Result Comment: Canc elled via OM: Order cancelled - Patient discharged Performed By: #### L 100.0100 ####[facility] [address] [place], [address] HCT Normal 37-47 [facility] Comment on above: Result Comment: Canc elled via OM: Order cancelled - Patient discharged Performed By: #### L 100.0100 ####[facility] [address] [place], [address] HGB Normal 12.0-15.0 [facility] Comment on above: Result Comment: Canc elled via OM: Order cancelled - Patient discharged Performed By: #### L 100.0100 ####[facility] [address] [place], [address] MCH Normal 27.0-32.0 [facility] Comment on above: Result Comment: Canc elled via OM: Order cancelled - Patient discharged Performed By: #### L 100.0100 ####[facility] [address] [place], [address] MCHC Normal 32-36 [facility] Comment on above: Result Comment: Canc elled via OM: Order cancelled - Patient discharged Performed By: #### L 100.0100 ####[facility] [address] [place], [address] MCV Normal 81-99 [facility] Comment on above: Result Comment: Canc elled via OM: Order cancelled - Patient discharged Performed By: #### L 100.0100 ####[facility] [address] [place], [address] NEUT% Normal 47-70 [facility] Comment on above: Result Comment: Canc elled via OM: Order cancelled - Patient discharged Performed By: #### L 100.0100 ####[facility] [address] [place], [address] PLT Normal 150-450 [facility] Comment on above: Result Comment: Canc elled via OM: Order cancelled - Patient discharged Performed By: #### L 100.0100 ####[facility] [address] [place], [address] RBC Normal 4.2-5.4 [facility] Comment on above: Result Comment: Canc elled via OM: Order cancelled - Patient discharged Performed By: #### L 100.0100 ####[facility] [address] [place], [address] RDW CV Normal 11.6-14.6 [facility] Comment on above: Result Comment: Canc elled via OM: Order cancelled - Patient discharged Performed By: #### L 100.0100 ####[facility] [address] [place], [address] RDW SD Normal 35.1-43.9 [facility] Comment on above: Result Comment: Canc elled via OM: Order cancelled - Patient discharged Performed By: #### L 100.0100 ####[facility] [address] [place], [address] WBC Normal 4.4-11.0 [facility] Comment on above: Result Comment: Canc elled via OM: Order cancelled - Patient discharged Performed By: #### L 100.0100 ####[facility] [address] [place], [address] MRCP Abdomen without Contras ton 08-27-2024 MRCP Abdomen without Contrast Normal [facility] CBC W/Diff, Automatedon 08-12 Absolute Neut Normal 2.0-7.7 [facility] Comment on above: Result Comment: Canc elled via OM: Order cancelled - Patient discharged Performed By: #### L 100.0100, L500.4050 ####[facility] [address] [place], [address] HCT Normal 37-47 [facility] Comment on above: Result Comment: Canc elled via OM: Order cancelled - Patient discharged Performed By: #### L 100.0100, L500.4050 ####[facility] [address] [place], [address] HGB Normal 12.0-15.0 [facility] Comment on above: Result Comment: Canc elled via OM: Order cancelled - Patient discharged Performed By: #### L 100.0100, L500.4050 ####[facility] [address] [place], [address] MCH Normal 27.0-32.0 [facility] Comment on above: Result Comment: Canc elled via OM: Order cancelled - Patient discharged Performed By: #### L 100.0100, L500.4050 ####[facility] [address] [place], [address] MCHC Normal 32-36 [facility] Comment on above: Result Comment: Canc elled via OM: Order cancelled - Patient discharged Performed By: #### L 100.0100, L500.4050 ####[facility] [address] [place], [address] MCV Normal 81-99 [facility] Comment on above: Result Comment: Canc elled via OM: Order cancelled - Patient discharged Performed By: #### L 100.0100, L500.4050 ####[facility] [address] [place], [address] NEUT% Normal 47-70 [facility] Comment on above: Result Comment: Canc elled via OM: Order cancelled - Patient discharged Performed By: #### L 100.0100, L500.4050 ####[facility] [address] [place], [address] PLT Normal 150-450 [facility] Comment on above: Result Comment: Canc elled via OM: Order cancelled - Patient discharged Performed By: #### L 100.0100, L500.4050 ####[facility] [address] [place], [address] RBC Normal 4.2-5.4 [facility] Comment on above: Result Comment: Canc elled via OM: Order cancelled - Patient discharged Performed By: #### L 100.0100, L500.4050 ####[facility] [address] [place], [address] RDW CV Normal 11.6-14.6 [facility] Comment on above: Result Comment: Canc elled via OM: Order cancelled - Patient discharged Performed By: #### L 100.0100, L500.4050 ####[facility] [address] [place], [address] RDW SD Normal 35.1-43.9 [facility] Comment on above: Result Comment: Canc elled via OM: Order cancelled - Patient discharged Performed By: #### L 100.0100, L500.4050 ####[facility] [address] [place], [address] WBC Normal 4.4-11.0 [facility] Comment on above: Result Comment: Canc elled via OM: Order cancelled - Patient discharged Performed By: #### L 100.0100, L500.4050 ####[facility] [address] [place], [address] Comprehensive Metabolic Prof ilon 08-26-2024 ALB Normal 3.5-5.0 [facility] Comment on above: Result Comment: Canc elled via OM: Order cancelled - Patient discharged Performed By: #### L 100.0100, L500.4050 ####[facility] [address] [place], [address] ALK PHOS Normal 35-104 [facility] Comment on above: Result Comment: Canc elled via OM: Order cancelled - Patient discharged Performed By: #### L 100.0100, L500.4050 ####[facility] [address] [place], [address] ALT Normal <=34 [facility] Comment on above: Result Comment: Canc elled via OM: Order cancelled - Patient discharged Performed By: #### L 100.0100, L500.4050 ####[facility] [address] [place], [address] AST Normal <=31 [facility] Comment on above: Result Comment: Canc elled via OM: Order cancelled - Patient discharged Performed By: #### L 100.0100, L500.4050 ####[facility] [address] [place], [address] BUN Normal 4-19 [facility] Comment on above: Result Comment: Canc elled via OM: Order cancelled - Patient discharged Performed By: #### L 100.0100, L500.4050 ####[facility] [address] [place], [address] BUN/CRE Normal 10-20 [facility] Comment on above: Result Comment: Canc elled via OM: Order cancelled - Patient discharged Performed By: #### L 100.0100, L500.4050 ####[facility] [address] [place], [address] Calcium Normal 7.6-11.0 [facility] Comment on above: Result Comment: Canc elled via OM: Order cancelled - Patient discharged Performed By: #### L 100.0100, L500.4050 ####[facility] [address] [place], [address] CL Normal 98-108 [facility] Comment on above: Result Comment: Canc elled via OM: Order cancelled - Patient discharged Performed By: #### L 100.0100, L500.4050 ####[facility] [address] [place], [address] CO2 Normal 21.0-32.0 [facility] Comment on above: Result Comment: Canc elled via OM: Order cancelled - Patient discharged Performed By: #### L 100.0100, L500.4050 ####[facility] [address] [place], [address] CREAT,SERUM Normal 0.70-1.20 [facility] Comment on above: Result Comment: Canc elled via OM: Order cancelled - Patient discharged Performed By: #### L 100.0100, L500.4050 ####[facility] [address] [place], [address] eGFR Normal >60 [facility] Comment on above: Result Comment: Canc elled via OM: Order cancelled - Patient discharged Performed By: #### L 100.0100, L500.4050 ####[facility] [address] [place], [address] GAP Normal 5-15 [facility] Comment on above: Result Comment: Canc elled via OM: Order cancelled - Patient discharged Performed By: #### L 100.0100, L500.4050 ####[facility] [address] [place], [address] GLU Normal 70-99 [facility] Comment on above: Result Comment: Canc elled via OM: Order cancelled - Patient discharged Performed By: #### L 100.0100, L500.4050 ####[facility] [address] [place], [address] Potassium Normal 3.3-5.1 [facility] Comment on above: Result Comment: Canc elled via OM: Order cancelled - Patient discharged Performed By: #### L 100.0100, L500.4050 ####[facility] [address] [place], [address] T BILI Normal 0.00-1.30 [facility] Comment on above: Result Comment: Canc elled via OM: Order cancelled - Patient discharged Performed By: #### L 100.0100, L500.4050 ####[facility] [address] [place], [address] T PROT Normal 5.9-8.4 [facility] Comment on above: Result Comment: Canc elled via OM: Order cancelled - Patient discharged Performed By: #### L 100.0100, L500.4050 ####[facility] [address] [place], [address] Comprehensive Metabolic Profil Normal 133-145 [facility] Comment on above: Result Comment: Canc elled via OM: Order cancelled - Patient discharged Performed By: #### L 100.0100, L500.4050 ####[facility] [address] [place], [address] CBC W/Diff, Automatedon 06-1 Absolute Neut Normal 2.0-7.7 [facility] Comment on above: Result Comment: Canc elled via OM: Order cancelled - Patient discharged Performed By: #### L 100.0100, L500.4050 ####[facility] [address] [place], [address] HCT Normal 37-47 [facility] Comment on above: Result Comment: Canc elled via OM: Order cancelled - Patient discharged Performed By: #### L 100.0100, L500.4050 ####[facility] [address] [place], [address] HGB Normal 12.0-15.0 [facility] Comment on above: Result Comment: Canc elled via OM: Order cancelled - Patient discharged Performed By: #### L 100.0100, L500.4050 ####[facility] [address] [place], [address] MCH Normal 27.0-32.0 [facility] Comment on above: Result Comment: Canc elled via OM: Order cancelled - Patient discharged Performed By: #### L 100.0100, L500.4050 ####[facility] [address] [place], [address] MCHC Normal 32-36 [facility] Comment on above: Result Comment: Canc elled via OM: Order cancelled - Patient discharged Performed By: #### L 100.0100, L500.4050 ####[facility] [address] [place], [address] MCV Normal 81-99 [facility] Comment on above: Result Comment: Canc elled via OM: Order cancelled - Patient discharged Performed By: #### L 100.0100, L500.4050 ####[facility] [address] [place], [address] NEUT% Normal 47-70 [facility] Comment on above: Result Comment: Canc elled via OM: Order cancelled - Patient discharged Performed By: #### L 100.0100, L500.4050 ####[facility] [address] [place], [address] PLT Normal 150-450 [facility] Comment on above: Result Comment: Canc elled via OM: Order cancelled - Patient discharged Performed By: #### L 100.0100, L500.4050 ####[facility] [address] [place], [address] RBC Normal 4.2-5.4 [facility] Comment on above: Result Comment: Canc elled via OM: Order cancelled - Patient discharged Performed By: #### L 100.0100, L500.4050 ####[facility] [address] [place], [address] RDW CV Normal 11.6-14.6 [facility] Comment on above: Result Comment: Canc elled via OM: Order cancelled - Patient discharged Performed By: #### L 100.0100, L500.4050 ####[facility] [address] [place], [address] RDW SD Normal 35.1-43.9 [facility] Comment on above: Result Comment: Canc elled via OM: Order cancelled - Patient discharged Performed By: #### L 100.0100, L500.4050 ####[facility] [address] [place], [address] WBC Normal 4.4-11.0 [facility] Comment on above: Result Comment: Canc elled via OM: Order cancelled - Patient discharged Performed By: #### L 100.0100, L500.4050 ####[facility] [address] [place], [address] Comprehensive Metabolic Prof ilon 08-25-2024 ALB Normal 3.5-5.0 [facility] Comment on above: Result Comment: Canc elled via OM: Order cancelled - Patient discharged Performed By: #### L 100.0100, L500.4050 ####[facility] [address] [place], [address] ALK PHOS Normal 35-104 [facility] Comment on above: Result Comment: Canc elled via OM: Order cancelled - Patient discharged Performed By: #### L 100.0100, L500.4050 ####[facility] [address] [place], [address] ALT Normal <=34 [facility] Comment on above: Result Comment: Canc elled via OM: Order cancelled - Patient discharged Performed By: #### L 100.0100, L500.4050 ####[facility] [address] [place], [address] AST Normal <=31 [facility] Comment on above: Result Comment: Canc elled via OM: Order cancelled - Patient discharged Performed By: #### L 100.0100, L500.4050 ####[facility] [address] [place], [address] BUN Normal 4-19 [facility] Comment on above: Result Comment: Canc elled via OM: Order cancelled - Patient discharged Performed By: #### L 100.0100, L500.4050 ####[facility] [address] [place], [address] BUN/CRE Normal 10-20 [facility] Comment on above: Result Comment: Canc elled via OM: Order cancelled - Patient discharged Performed By: #### L 100.0100, L500.4050 ####[facility] [address] [place], [address] Calcium Normal 7.6-11.0 [facility] Comment on above: Result Comment: Canc elled via OM: Order cancelled - Patient discharged Performed By: #### L 100.0100, L500.4050 ####[facility] [address] [place], [address] CL Normal 98-108 [facility] Comment on above: Result Comment: Canc elled via OM: Order cancelled - Patient discharged Performed By: #### L 100.0100, L500.4050 ####[facility] [address] [place], [address] CO2 Normal 21.0-32.0 [facility] Comment on above: Result Comment: Canc elled via OM: Order cancelled - Patient discharged Performed By: #### L 100.0100, L500.4050 ####[facility] [address] [place], [address] CREAT,SERUM Normal 0.70-1.20 [facility] Comment on above: Result Comment: Canc elled via OM: Order cancelled - Patient discharged Performed By: #### L 100.0100, L500.4050 ####[facility] [address] [place], [address] eGFR Normal >60 [facility] Comment on above: Result Comment: Canc elled via OM: Order cancelled - Patient discharged Performed By: #### L 100.0100, L500.4050 ####[facility] [address] [place], [address] GAP Normal 5-15 [facility] Comment on above: Result Comment: Canc elled via OM: Order cancelled - Patient discharged Performed By: #### L 100.0100, L500.4050 ####[facility] [address] [place], [address] GLU Normal 70-99 [facility] Comment on above: Result Comment: Canc elled via OM: Order cancelled - Patient discharged Performed By: #### L 100.0100, L500.4050 ####[facility] [address] [place], [address] Potassium Normal 3.3-5.1 [facility] Comment on above: Result Comment: Canc elled via OM: Order cancelled - Patient discharged Performed By: #### L 100.0100, L500.4050 ####[facility] [address] [place], [address] T BILI Normal 0.00-1.30 [facility] Comment on above: Result Comment: Canc elled via OM: Order cancelled - Patient discharged Performed By: #### L 100.0100, L500.4050 ####[facility] [address] [place], [address] T PROT Normal 5.9-8.4 [facility] Comment on above: Result Comment: Canc elled via OM: Order cancelled - Patient discharged Performed By: #### L 100.0100, L500.4050 ####[facility] [address] [place], [address] Comprehensive Metabolic Profil Normal 133-145 [facility] Comment on above: Result Comment: Canc elled via OM: Order cancelled - Patient discharged Performed By: #### L 100.0100, L500.4050 ####[facility] [address] [place], [address] Absolute lymphocyte countOrd ered By: Taylor Tejeda on 08-24-2024 Lymphocytes Auto (Unsp spec) [#/Vol] 1.18 10*3/uL 0.83-4.51 [facility] Anion gap in Serum or Plasma Ordered By: Taylor Tejeda on 08-24-2024 Anion gap [Moles/Vol] 12 mmol/L 5-15 [facility] Automated lymphocyte count a s percentage of total leukocytesOrdered By: Taylor Tejeda on 08-24-2024 Lymphocytes/100 WBC Auto (Unsp spec) 14.1 % Low 19-41 [facility] BUN/creatinine ratioOrdered By: Taylor Tejeda on 08-24-2024 Urea nitrogen/Creatinine [Mass ratio] 10.5 mg/mg 10-20 [facility] Basophil percentageOrdered B y: Taylor Tejeda on 08-24-2024 Basophils/100 WBC (Bld) 0.5 % 0-1 [facility] Bilirubin, totalOrdered By: Taylor Tejeda on 08-24-2024 Bilirubin [Mass/Vol] 0.32 mg/dL 0.00-1.30 [facility] CBC W/Diff, Automatedon 08-12-2024 Absolute Lymph 1.18 X10 3/uL Normal 0.83-4.51 [facility] Comment on above: Performed By: #### L 500.4050, L100.0100 ####[facility] [address] [place], [address] Absolute Neut 6.4 X10 3/uL Normal 2.0-7.7 [facility] Comment on above: Performed By: #### L 500.4050, L100.0100 ####[facility] [address] [place], [address] Basophils/100 WBC (Bld) 0.5 % Normal 0-1 [facility] Comment on above: Performed By: #### L 500.4050, L100.0100 ####[facility] [address] [place], [address] Eosinophils/100 WBC (Bld) 2.2 % Normal 0-5 [facility] Comment on above: Performed By: #### L 500.4050, L100.0100 ####[facility] [address] [place], [address] Erythrocyte distribution width (RBC) [Ratio] 14.0 % Normal 11.6-14.6 [facility] Comment on above: Performed By: #### L 500.4050, L100.0100 ####[facility] [address] [place], [address] Hematocrit (Bld) [Volume fraction] 36.5 % Low 37-47 [facility] Comment on above: Performed By: #### L 500.4050, L100.0100 ####[facility] [address] [place], [address] Hemoglobin (Bld) [Mass/Vol] 12.0 g/dL Normal 12.0-15.0 [facility] Comment on above: Performed By: #### L 500.4050, L100.0100 ####[facility] [address] [place], [address] IG% 0.600 Normal 0.0-0.9 [facility] Comment on above: Result Comment: IG% - Immature Granulocytes (promyelocytes, myelocytes andmetamyelocytes) > 1% indicates that a LEFT SHIFT is Present. Performed By: #### L 500.4050, L100.0100 ####[facility] [address] [place], [address] Lymphocytes/100 WBC (Bld) 14.1 % Low 19-41 [facility] Comment on above: Performed By: #### L 500.4050, L100.0100 ####[facility] [address] [place], [address] MCH (RBC) [Entitic mass] 31.6 pg Normal 27.0-32.0 [facility] Comment on above: Performed By: #### L 500.4050, L100.0100 ####[facility] [address] [place], [address] MCHC (RBC) [Mass/Vol] 32.9 g/dL Normal 32-36 [facility] Comment on above: Performed By: #### L 500.4050, L100.0100 ####[facility] [address] [place], [address] MCV (RBC) [Entitic vol] 96.1 fL Normal 81-99 [facility] Comment on above: Performed By: #### L 500.4050, L100.0100 ####[facility] [address] [place], [address] Monocytes/100 WBC (Bld) 6.6 % Normal 0-10 [facility] Comment on above: Performed By: #### L 500.4050, L100.0100 ####[facility] [address] [place], [address] Neutrophils/100 WBC (Bld) 76.0 % High 47-70 [facility] Comment on above: Performed By: #### L 500.4050, L100.0100 ####[facility] [address] [place], [address] Nucleated RBC (Bld) [#/Vol] 0 10*3/uL Normal 0-5 [facility] Comment on above: Performed By: #### L 500.4050, L100.0100 ####[facility] [address] [place], [address] Platelet mean volume (Bld) [Entitic vol] 10.1 fL Normal 6.2-12.0 [facility] Comment on above: Performed By: #### L 500.4050, L100.0100 ####[facility] [address] [place], [address] Platelets (Bld) [#/Vol] 246 10*3/uL Normal 150-450 [facility] Comment on above: Performed By: #### L 500.4050, L100.0100 ####[facility] [address] [place], [address] RBC (Bld) [#/Vol] 3.80 10*6/uL Low 4.2-5.4 [facility] Comment on above: Performed By: #### L 500.4050, L100.0100 ####[facility] [address] [place], [address] RDW SD 48.5 fl High 35.1-43.9 [facility] Comment on above: Performed By: #### L 500.4050, L100.0100 ####[facility] [address] [place], [address] WBC (Bld) [#/Vol] 8.4 10*3/uL Normal 4.4-11.0 [facility] Comment on above: Performed By: #### L 500.4050, L100.0100 ####[facility] [address] [place], [address] Carbon dioxide, total [Moles /volume] in Central venous bloodOrdered By: Taylor Tejeda on 08-24-2024 CO2 [Moles/Vol] 21.5 mmol/L 21.0-32.0 [facility] Chloride assayOrdered By: Soledad Tejeda on 08-24-2024 Chloride [Moles/Vol] 104 mmol/L 98-108 [facility] Comprehensive Metabolic Prof ilon 08-24-2024 Albumin [Mass/Vol] 3.5 g/dL Normal 3.5-5.0 [facility] Comment on above: Performed By: #### L 500.4050, L100.0100 ####[facility] [address] [place], [address] Albumin/Globulin [Mass ratio] 1.4 {ratio} Normal 0.9-2.4 [facility] Comment on above: Performed By: #### L 500.4050, L100.0100 ####[facility] [address] [place], [address] ALK PHOS 163 U/L High 35-104 [facility] Comment on above: Performed By: #### L 500.4050, L100.0100 ####[facility] [address] [place], [address] ALT [Catalytic activity/Vol] 184 U/L High <=34 [facility] Comment on above: Performed By: #### L 500.4050, L100.0100 ####[facility] [address] [place], [address] AST [Catalytic activity/Vol] 54 U/L High <=31 [facility] Comment on above: Performed By: #### L 500.4050, L100.0100 ####[facility] [address] [place], [address] Bilirubin [Mass/Vol] 0.32 mg/dL Normal 0.00-1.30 [facility] Comment on above: Performed By: #### L 500.4050, L100.0100 ####[facility] [address] [place], [address] BUN/CRE 10.5 RATIO Normal 10-20 [facility] Comment on above: Performed By: #### L 500.4050, L100.0100 ####[facility] [address] [place], [address] Calcium [Mass/Vol] 8.8 mg/dL Normal 7.6-11.0 [facility] Comment on above: Performed By: #### L 500.4050, L100.0100 ####[facility] [address] [place], [address] Chloride [Moles/Vol] 104 mmol/L Normal 98-108 [facility] Comment on above: Performed By: #### L 500.4050, L100.0100 ####[facility] [address] [place], [address] CO2 [Moles/Vol] 21.5 mmol/L Normal 21.0-32.0 [facility] Comment on above: Performed By: #### L 500.4050, L100.0100 ####[facility] [address] [place], [address] Creatinine [Mass/Vol] 1.02 mg/dL Normal 0.70-1.20 [facility] Comment on above: Performed By: #### L 500.4050, L100.0100 ####[facility] [address] [place], [address] ECRCL 60.78 ml/min Normal 50-250 [facility] Comment on above: Performed By: #### L 500.4050, L100.0100 ####[facility] [address] [place], [address] GAP 12 Normal 5-15 [facility] Comment on above: Performed By: #### L 500.4050, L100.0100 ####[facility] [address] [place], [address] GFR/1.73 sq M.predicted among non-blacks MDRD (S/P/Bld) [Vol rate/Area] 70 mL/min/{1.73_m2} Normal >60 [facility] Comment on above: Result Comment: mL/m in/1.73m2 CKD-EPI Creatinine Equation (2020) Performed By: #### L 500.4050, L100.0100 ####[facility] [address] [place], [address] Globulin (S) [Mass/Vol] 2.5 g/dL Normal 2.2-4.2 [facility] Comment on above: Performed By: #### L 500.4050, L100.0100 ####[facility] [address] [place], [address] Glucose [Mass/Vol] 126 mg/dL High 70-99 [facility] Comment on above: Performed By: #### L 500.4050, L100.0100 ####[facility] [address] [place], [address] Potassium [Moles/Vol] 4.2 mmol/L Normal 3.3-5.1 [facility] Comment on above: Performed By: #### L 500.4050, L100.0100 ####[facility] [address] [place], [address] Sodium [Moles/Vol] 137 mmol/L Normal 133-145 [facility] Comment on above: Performed By: #### L 500.4050, L100.0100 ####[facility] [address] [place], [address] T PROT 6.0 g/dL Normal 5.9-8.4 [facility] Comment on above: Performed By: #### L 500.4050, L100.0100 ####[facility] [address] [place], [address] Urea nitrogen [Mass/Vol] 11 mg/dL Normal 4-19 [facility] Comment on above: Performed By: #### L 500.4050, L100.0100 ####[facility] [address] [place], [address] Discharge Instructionon 08-12 Discharge Instruction Normal [facility] Eosinophil percentageOrdered By: Taylor Tejeda on 08-24-2024 Eosinophils/100 WBC (Bld) 2.2 % 0-5 [facility] Erythrocyte distribution wid th ratioOrdered By: Taylor Tejeda on 08-24-2024 Erythrocyte distribution width (RBC) [Ratio] 14.0 % 11.6-14.6 [facility] Erythrocyte distribution wid th standard deviationOrdered By: Taylor Tejeda on 08-24-2024 Erythrocyte distribution width (RBC) [Ratio] 48.5 fl High 35.1-43.9 [facility] Glomerular filtration rate ( GFR) estimation/1.73 sq m using serum, plasma, or whole bOrdered By: Taylor Tejeda on 08-24-2024 GFR/1.73 sq M.predicted among non-blacks MDRD (S/P/Bld) [Vol rate/Area] 70 mL/min/{1.73_m2} >60 [facility] Hematocrit Auto (Bld) [Volum e fraction]Ordered By: Taylor Tejeda on 08-24-2024 Hematocrit (Bld) [Volume fraction] 36.5 % Low 37-47 [facility] Hemoglobin measurementOrdere d By: Taylor Tejeda on 08-24-2024 Hemoglobin (Bld) [Mass/Vol] 12.0 g/dL 12.0-15.0 [facility] Immature granulocytes/100 WB C Auto (Bld)Ordered By: Taylor Tejeda on 08-24-2024 Immature granulocytes/100 WBC (Bld) 0.600 % 0.0-0.9 [facility] MCV (mean corpuscular volume ) determinationOrdered By: Taylor Tejeda on 08-24-2024 MCV (RBC) [Entitic vol] 96.1 fL 81-99 [facility] Mean corpuscular hemoglobin (MCH) determinationOrdered By: Taylor Tejeda on 08-24-2024 MCH (RBC) [Entitic mass] 31.6 pg 27.0-32.0 [facility] Monocyte percentageOrdered B y: Taylor Tejeda on 08-24-2024 Monocytes/100 WBC (Bld) 6.6 % 0-10 [facility] Neutrophil percentageOrdered By: Taylor Tejeda on 08-24-2024 Neutrophils/100 WBC (Bld) 76.0 % High 47-70 [facility] No Panel InformationOrdered By: Taylor Tejeda on 08-24-2024 54 U/L High <32 [facility] Platelet countOrdered By: Soledad Tejeda on 08-24-2024 Platelets (Bld) [#/Vol] 246 10*3/uL 150-450 [facility] Potassium measurement (mass/ volume)Ordered By: Taylor Tejeda on 08-24-2024 Potassium (Unsp spec) [Mass/Vol] 4.2 mmol/L 3.3-5.1 [facility] RBC Auto (Bld) [#/Vol]Ordere d By: Taylor Tejeda on 08-24-2024 RBC (Bld) [#/Vol] 3.80 10*6/uL Low 4.2-5.4 [facility] Serum creatinine measurement (mass/volume)Ordered By: Taylor Tejdea on 08-24-2024 Creatinine [Mass/Vol] 1.02 mg/dL 0.70-1.20 [facility] Serum globulin measurementOr dered By: Taylor Tejeda on 08-24-2024 Globulin (S) [Mass/Vol] 2.5 g/dL 2.2-4.2 [facility] Serum glucose measurement (m ass/volume)Ordered By: Taylor Tejeda on 08-24-2024 Glucose [Mass/Vol] 126 mg/dL High 70-99 [facility] Serum or plasma alanine hair otransferase (ALT) measurementOrdered By: Taylor Tejeda on 08-24-2024 ALT [Catalytic activity/Vol] 184 U/L High <35 [facility] Serum or plasma albumin leslie urement (mass/volume)Ordered By: Taylor Tejeda on 08-24-2024 Albumin [Mass/Vol] 3.5 g/dL 3.5-5.0 [facility] Serum or plasma albumin/glob ulin mass ratioOrdered By: Taylor Tejeda on 08-24-2024 Albumin/Globulin [Mass ratio] 1.4 {ratio} 0.9-2.4 [facility] Serum or plasma alkaline delfin sphatase measurementOrdered By: Taylor Tejeda 08-24-2024 ALP [Catalytic activity/Vol] 163 U/L High 35-104 [facility] Serum or plasma calcium leslie urement (mass/volume)Ordered By: Taylor Tejeda on 08-24-2024 Calcium [Mass/Vol] 8.8 mg/dL 7.6-11.0 [facility] Serum or plasma urea nitroge n measurement (mass/volume)Ordered By: Taylor Tejeda on 08-24-2024 Urea nitrogen [Mass/Vol] 11 mg/dL 4-19 [facility] Sodium levelOrdered By: Taylor Tejeda on 08-24-2024 Sodium [Moles/Vol] 137 mmol/L 133-145 [facility] Total proteinOrdered By: Laquita Tejeda on 08-24-2024 Protein [Mass/Vol] 6.0 g/dL 5.9-8.4 [facility] White blood cell (WBC) count Ordered By: Taylor Tejeda on 08-24-2024 WBC (Bld) [#/Vol] 8.4 10*3/uL 4.4-11.0 [facility] Abdomen/Pelvis W IV Cont ONL Yon 08-23-2024 Abdomen/Pelvis W IV Cont ONLY Normal [facility] Abdomen/Pelvis without Conto n 08-23-2024 Abdomen/Pelvis without Cont Normal [facility] CBC W/Diff, Automatedon 08-12 Absolute Lymph 1.35 X10 3/uL Normal 0.83-4.51 [facility] Comment on above: Performed By: #### L 500.4050, L100.0100 ####[facility] [address] [place], [address] Absolute Neut 10.2 X10 3/uL High 2.0-7.7 [facility] Comment on above: Performed By: #### L 500.4050, L100.0100 ####[facility] [address] [place], [address] Basophils/100 WBC (Bld) 0.3 % Normal 0-1 [facility] Comment on above: Performed By: #### L 500.4050, L100.0100 ####[facility] [address] [place], [address] Eosinophils/100 WBC (Bld) 1.0 % Normal 0-5 [facility] Comment on above: Performed By: #### L 500.4050, L100.0100 ####[facility] [address] [place], [address] Erythrocyte distribution width (RBC) [Ratio] 13.5 % Normal 11.6-14.6 [facility] Comment on above: Performed By: #### L 500.4050, L100.0100 ####[facility] [address] [place], [address] Hematocrit (Bld) [Volume fraction] 38.3 % Normal 37-47 [facility] Comment on above: Performed By: #### L 500.4050, L100.0100 ####[facility] [address] [place], [address] Hemoglobin (Bld) [Mass/Vol] 12.7 g/dL Normal 12.0-15.0 [facility] Comment on above: Performed By: #### L 500.4050, L100.0100 ####[facility] [address] [place], [address] IG% 0.500 Normal 0.0-0.9 [facility] Comment on above: Result Comment: IG% - Immature Granulocytes (promyelocytes, myelocytes andmetamyelocytes) > 1% indicates that a LEFT SHIFT is Present. Performed By: #### L 500.4050, L100.0100 ####[facility] [address] [place], [address] Lymphocytes/100 WBC (Bld) 10.7 % Low 19-41 [facility] Comment on above: Performed By: #### L 500.4050, L100.0100 ####[facility] [address] [place], [address] MCH (RBC) [Entitic mass] 31.5 pg Normal 27.0-32.0 [facility] Comment on above: Performed By: #### L 500.4050, L100.0100 ####[facility] [address] [place], [address] MCHC (RBC) [Mass/Vol] 33.2 g/dL Normal 32-36 [facility] Comment on above: Performed By: #### L 500.4050, L100.0100 ####[facility] [address] [place], [address] MCV (RBC) [Entitic vol] 95.0 fL Normal 81-99 [facility] Comment on above: Performed By: #### L 500.4050, L100.0100 ####[facility] [address] [place], [address] Monocytes/100 WBC (Bld) 7.0 % Normal 0-10 [facility] Comment on above: Performed By: #### L 500.4050, L100.0100 ####[facility] [address] [place], [address] Neutrophils/100 WBC (Bld) 80.5 % High 47-70 [facility] Comment on above: Performed By: #### L 500.4050, L100.0100 ####[facility] [address] [place], [address] Nucleated RBC (Bld) [#/Vol] 0 10*3/uL Normal 0-5 [facility] Comment on above: Performed By: #### L 500.4050, L100.0100 ####[facility] [address] [place], [address] Platelet mean volume (Bld) [Entitic vol] 10.4 fL Normal 6.2-12.0 [facility] Comment on above: Performed By: #### L 500.4050, L100.0100 ####[facility] [address] [place], [address] Platelets (Bld) [#/Vol] 274 10*3/uL Normal 150-450 [facility] Comment on above: Performed By: #### L 500.4050, L100.0100 ####[facility] [address] [place], [address] RBC (Bld) [#/Vol] 4.03 10*6/uL Low 4.2-5.4 [facility] Comment on above: Performed By: #### L 500.4050, L100.0100 ####[facility] [address] [place], [address] RDW SD 46.5 fl High 35.1-43.9 [facility] Comment on above: Performed By: #### L 500.4050, L100.0100 ####[facility] [address] [place], [address] WBC (Bld) [#/Vol] 12.7 10*3/uL High 4.4-11.0 [facility] Comment on above: Performed By: #### L 500.4050, L100.0100 ####[facility] [address] [place], [address] Comprehensive Metabolic Prof ohon 08-23-2024 Albumin [Mass/Vol] 4.0 g/dL Normal 3.5-5.0 [facility] Comment on above: Performed By: #### L 500.4050, L100.0100 ####[facility] [address] [place], [address] Albumin/Globulin [Mass ratio] 1.3 {ratio} Normal 0.9-2.4 [facility] Comment on above: Performed By: #### L 500.4050, L100.0100 ####[facility] [address] [place], [address] ALK PHOS 188 U/L High 35-104 [facility] Comment on above: Performed By: #### L 500.4050, L100.0100 ####[facility] [address] [place], [address] ALT [Catalytic activity/Vol] 277 U/L High <=34 [facility] Comment on above: Performed By: #### L 500.4050, L100.0100 ####[facility] [address] [place], [address] AST [Catalytic activity/Vol] 115 U/L High <=31 [facility] Comment on above: Performed By: #### L 500.4050, L100.0100 ####[facility] [address] [place], [address] Bilirubin [Mass/Vol] 0.59 mg/dL Normal 0.00-1.30 [facility] Comment on above: Performed By: #### L 500.4050, L100.0100 ####[facility] [address] [place], [address] BUN/CRE 9.0 RATIO Low 10-20 [facility] Comment on above: Performed By: #### L 500.4050, L100.0100 ####[facility] [address] [place], [address] Calcium [Mass/Vol] 9.1 mg/dL Normal 7.6-11.0 [facility] Comment on above: Performed By: #### L 500.4050, L100.0100 ####[facility] [address] [place], [address] Chloride [Moles/Vol] 100 mmol/L Normal 98-108 [facility] Comment on above: Performed By: #### L 500.4050, L100.0100 ####[facility] [address] [place], [address] CO2 [Moles/Vol] 23.1 mmol/L Normal 21.0-32.0 [facility] Comment on above: Performed By: #### L 500.4050, L100.0100 ####[facility] [address] [place], [address] Creatinine [Mass/Vol] 0.75 mg/dL Normal 0.70-1.20 [facility] Comment on above: Performed By: #### L 500.4050, L100.0100 ####[facility] [address] [place], [address] ECRCL 82.66 ml/min Normal 50-250 [facility] Comment on above: Performed By: #### L 500.4050, L100.0100 ####[facility] [address] [place], [address] GAP 12 Normal 5-15 [facility] Comment on above: Performed By: #### L 500.4050, L100.0100 ####[facility] [address] [place], [address] GFR/1.73 sq M.predicted among non-blacks MDRD (S/P/Bld) [Vol rate/Area] 100 mL/min/{1.73_m2} Normal >60 [facility] Comment on above: Result Comment: mL/m in/1.73m2 CKD-EPI Creatinine Equation (2020) Performed By: #### L 500.4050, L100.0100 ####[facility] [address] [place], [address] Globulin (S) [Mass/Vol] 3.0 g/dL Normal 2.2-4.2 [facility] Comment on above: Performed By: #### L 500.4050, L100.0100 ####[facility] [address] [place], [address] Glucose [Mass/Vol] 104 mg/dL High 70-99 [facility] Comment on above: Performed By: #### L 500.4050, L100.0100 ####[facility] [address] [place], [address] Potassium [Moles/Vol] 4.2 mmol/L Normal 3.3-5.1 [facility] Comment on above: Performed By: #### L 500.4050, L100.0100 ####[facility] [address] [place], [address] Sodium [Moles/Vol] 135 mmol/L Normal 133-145 [facility] Comment on above: Performed By: #### L 500.4050, L100.0100 ####[facility] [address] [place], [address] T PROT 7.0 g/dL Normal 5.9-8.4 [facility] Comment on above: Performed By: #### L 500.4050, L100.0100 ####[facility] [address] [place], [address] Urea nitrogen [Mass/Vol] 7 mg/dL Normal 4-19 [facility] Comment on above: Performed By: #### L 500.4050, L100.0100 ####[facility] [address] [place], [address] CBC W/Diff, Automatedon -03 14-2024 Absolute Lymph 1.39 X10 3/uL Normal 0.83-4.51 [facility] Comment on above: Performed By: #### L 500.4050, L100.0100 ####[facility] [address] [place], [address] Absolute Neut 8.6 X10 3/uL High 2.0-7.7 [facility] Comment on above: Performed By: #### L 500.4050, L100.0100 ####[facility] [address] [place], [address] Basophils/100 WBC (Bld) 0.5 % Normal 0-1 [facility] Comment on above: Performed By: #### L 500.4050, L100.0100 ####[facility] [address] [place], [address] Eosinophils/100 WBC (Bld) 0.8 % Normal 0-5 [facility] Comment on above: Performed By: #### L 500.4050, L100.0100 ####[facility] [address] [place], [address] Erythrocyte distribution width (RBC) [Ratio] 13.8 % Normal 11.6-14.6 [facility] Comment on above: Performed By: #### L 500.4050, L100.0100 ####[facility] [address] [place], [address] Hematocrit (Bld) [Volume fraction] 39.3 % Normal 37-47 [facility] Comment on above: Performed By: #### L 500.4050, L100.0100 ####[facility] [address] [place], [address] Hemoglobin (Bld) [Mass/Vol] 12.9 g/dL Normal 12.0-15.0 [facility] Comment on above: Performed By: #### L 500.4050, L100.0100 ####[facility] [address] [place], [address] IG% 0.500 Normal 0.0-0.9 [facility] Comment on above: Result Comment: IG% - Immature Granulocytes (promyelocytes, myelocytes andmetamyelocytes) > 1% indicates that a LEFT SHIFT is Present. Performed By: #### L 500.4050, L100.0100 ####[facility] [address] [place], [address] Lymphocytes/100 WBC (Bld) 12.5 % Low 19-41 [facility] Comment on above: Performed By: #### L 500.4050, L100.0100 ####[facility] [address] [place], [address] MCH (RBC) [Entitic mass] 31.3 pg Normal 27.0-32.0 [facility] Comment on above: Performed By: #### L 500.4050, L100.0100 ####[facility] [address] [place], [address] MCHC (RBC) [Mass/Vol] 32.8 g/dL Normal 32-36 [facility] Comment on above: Performed By: #### L 500.4050, L100.0100 ####[facility] [address] [place], [address] MCV (RBC) [Entitic vol] 95.4 fL Normal 81-99 [facility] Comment on above: Performed By: #### L 500.4050, L100.0100 ####[facility] [address] [place], [address] Monocytes/100 WBC (Bld) 8.0 % Normal 0-10 [facility] Comment on above: Performed By: #### L 500.4050, L100.0100 ####[facility] [address] [place], [address] Neutrophils/100 WBC (Bld) 77.7 % High 47-70 [facility] Comment on above: Performed By: #### L 500.4050, L100.0100 ####[facility] [address] [place], [address] Nucleated RBC (Bld) [#/Vol] 0 10*3/uL Normal 0-5 [facility] Comment on above: Performed By: #### L 500.4050, L100.0100 ####[facility] [address] [place], [address] Platelet mean volume (Bld) [Entitic vol] 10.0 fL Normal 6.2-12.0 [facility] Comment on above: Performed By: #### L 500.4050, L100.0100 ####[facility] [address] [place], [address] Platelets (Bld) [#/Vol] 291 10*3/uL Normal 150-450 [facility] Comment on above: Performed By: #### L 500.4050, L100.0100 ####[facility] [address] [place], [address] RBC (Bld) [#/Vol] 4.12 10*6/uL Low 4.2-5.4 [facility] Comment on above: Performed By: #### L 500.4050, L100.0100 ####[facility] [address] [place], [address] RDW SD 48.1 fl High 35.1-43.9 [facility] Comment on above: Performed By: #### L 500.4050, L100.0100 ####[facility] [address] [place], [address] WBC (Bld) [#/Vol] 11.1 10*3/uL High 4.4-11.0 [facility] Comment on above: Performed By: #### L 500.4050, L100.0100 ####[facility] [address] [place], [address] Comprehensive Metabolic Prof [facility] 08-22-2024 Albumin [Mass/Vol] 4.0 g/dL Normal 3.5-5.0 [facility] Comment on above: Performed By: #### L 500.4050, L100.0100 ####[facility] [address] [place], [address] Albumin/Globulin [Mass ratio] 1.4 {ratio} Normal 0.9-2.4 [facility] Comment on above: Performed By: #### L 500.4050, L100.0100 ####[facility] [address] [place], [address] ALK PHOS 199 U/L High 35-104 [facility] Comment on above: Performed By: #### L 500.4050, L100.0100 ####[facility] [address] [place], [address] ALT [Catalytic activity/Vol] 368 U/L High <=34 [facility] Comment on above: Performed By: #### L 500.4050, L100.0100 ####[facility] [address] [place], [address] AST [Catalytic activity/Vol] 284 U/L High <=31 [facility] Comment on above: Performed By: #### L 500.4050, L100.0100 ####[facility] [address] [place], [address] Bilirubin [Mass/Vol] 0.89 mg/dL Normal 0.00-1.30 [facility] Comment on above: Performed By: #### L 500.4050, L100.0100 ####[facility] [address] [place], [address] BUN/CRE 12.0 RATIO Normal 10-20 [facility] Comment on above: Performed By: #### L 500.4050, L100.0100 ####[facility] [address] [place], [address] Calcium [Mass/Vol] 9.5 mg/dL Normal 7.6-11.0 [facility] Comment on above: Performed By: #### L 500.4050, L100.0100 ####[facility] [address] [place], [address] Chloride [Moles/Vol] 101 mmol/L Normal 98-108 [facility] Comment on above: Performed By: #### L 500.4050, L100.0100 ####[facility] [address] [place], [address] CO2 [Moles/Vol] 22.1 mmol/L Normal 21.0-32.0 [facility] Comment on above: Performed By: #### L 500.4050, L100.0100 ####[facility] [address] [place], [address] Creatinine [Mass/Vol] 0.98 mg/dL Normal 0.70-1.20 [facility] Comment on above: Performed By: #### L 500.4050, L100.0100 ####[facility] [address] [place], [address] ECRCL 63.26 ml/min Normal 50-250 [facility] Comment on above: Performed By: #### L 500.4050, L100.0100 ####[facility] [address] [place], [address] GAP 12 Normal 5-15 [facility] Comment on above: Performed By: #### L 500.4050, L100.0100 ####[facility] [address] [place], [address] GFR/1.73 sq M.predicted among non-blacks MDRD (S/P/Bld) [Vol rate/Area] 73 mL/min/{1.73_m2} Normal >60 [facility] Comment on above: Result Comment: mL/m in/1.73m2 CKD-EPI Creatinine Equation (2020) Performed By: #### L 500.4050, L100.0100 ####[facility] [address] [place], [address] Globulin (S) [Mass/Vol] 2.8 g/dL Normal 2.2-4.2 [facility] Comment on above: Performed By: #### L 500.4050, L100.0100 ####[facility] [address] [place], [address] Glucose [Mass/Vol] 96 mg/dL Normal 70-99 [facility] Comment on above: Performed By: #### L 500.4050, L100.0100 ####[facility] [address] [place], [address] Potassium [Moles/Vol] 4.1 mmol/L Normal 3.3-5.1 [facility] Comment on above: Performed By: #### L 500.4050, L100.0100 ####[facility] [address] [place], [address] Sodium [Moles/Vol] 135 mmol/L Normal 133-145 [facility] Comment on above: Performed By: #### L 500.4050, L100.0100 ####[facility] [address] [place], [address] T PROT 6.9 g/dL Normal 5.9-8.4 [facility] Comment on above: Performed By: #### L 500.4050, L100.0100 ####[facility] [address] [place], [address] Urea nitrogen [Mass/Vol] 12 mg/dL Normal 4-19 [facility] Comment on above: Performed By: #### L 500.4050, L100.0100 ####[facility] [address] [place], [address] MR/[id number] 08-22-2024 MR/POSTOPAN2 Normal [facility] CBC-Complete Blood Cnt No Di ffon 08-21-2024 Erythrocyte distribution width (RBC) [Ratio] 13.7 % Normal 11.6-14.6 [facility] Comment on above: Performed By: #### L 100.0500, L500.4050 ####[facility] [address] [place], [address] Hematocrit (Bld) [Volume fraction] 39.1 % Normal 37-47 [facility] Comment on above: Performed By: #### L 100.0500, L500.4050 ####[facility] [address] [place], [address] Hemoglobin (Bld) [Mass/Vol] 12.6 g/dL Normal 12.0-15.0 [facility] Comment on above: Performed By: #### L 100.0500, L500.4050 ####[facility] [address] [place], [address] MCH (RBC) [Entitic mass] 31.2 pg Normal 27.0-32.0 [facility] Comment on above: Performed By: #### L 100.0500, L500.4050 ####[facility] [address] [place], [address] MCHC (RBC) [Mass/Vol] 32.2 g/dL Normal 32-36 [facility] Comment on above: Performed By: #### L 100.0500, L500.4050 ####[facility] [address] [place], [address] MCV (RBC) [Entitic vol] 96.8 fL Normal 81-99 [facility] Comment on above: Performed By: #### L 100.0500, L500.4050 ####[facility] [address] [place], [address] Platelet mean volume (Bld) [Entitic vol] 10.4 fL Normal 6.2-12.0 [facility] Comment on above: Performed By: #### L 100.0500, L500.4050 ####[facility] [address] [place], [address] Platelets (Bld) [#/Vol] 402 10*3/uL Normal 150-450 [facility] Comment on above: Performed By: #### L 100.0500, L500.4050 ####[facility] [address] [place], [address] RBC (Bld) [#/Vol] 4.04 10*6/uL Low 4.2-5.4 [facility] Comment on above: Performed By: #### L 100.0500, L500.4050 ####[facility] [address] [place], [address] RDW SD 48.3 fl High 35.1-43.9 [facility] Comment on above: Performed By: #### L 100.0500, L500.4050 ####[facility] [address] [place], [address] WBC (Bld) [#/Vol] 10.5 10*3/uL Normal 4.4-11.0 [facility] Comment on above: Performed By: #### L 100.0500, L500.4050 ####[facility] [address] [place], [address] Comprehensive Metabolic Prof ilon 08-21-2024 Albumin [Mass/Vol] 4.2 g/dL Normal 3.5-5.0 [facility] Comment on above: Performed By: #### L 100.0500, L500.4050 ####[facility] [address] [place], [address] Albumin/Globulin [Mass ratio] 1.4 {ratio} Normal 0.9-2.4 [facility] Comment on above: Performed By: #### L 100.0500, L500.4050 ####[facility] [address] [place], [address] ALK PHOS 197 U/L High 35-104 [facility] Comment on above: Performed By: #### L 100.0500, L500.4050 ####[facility] [address] [place], [address] ALT [Catalytic activity/Vol] 383 U/L High <=34 [facility] Comment on above: Performed By: #### L 100.0500, L500.4050 ####[facility] [address] [place], [address] AST [Catalytic activity/Vol] 535 U/L High <=31 [facility] Comment on above: Performed By: #### L 100.0500, L500.4050 ####[facility] [address] [place], [address] Bilirubin [Mass/Vol] 0.82 mg/dL Normal 0.00-1.30 [facility] Comment on above: Performed By: #### L 100.0500, L500.4050 ####[facility] [address] [place], [address] BUN/CRE 13.5 RATIO Normal 10-20 [facility] Comment on above: Performed By: #### L 100.0500, L500.4050 ####[facility] [address] [place], [address] Calcium [Mass/Vol] 9.5 mg/dL Normal 7.6-11.0 [facility] Comment on above: Performed By: #### L 100.0500, L500.4050 ####[facility] [address] [place], [address] Chloride [Moles/Vol] 100 mmol/L Normal 98-108 [facility] Comment on above: Performed By: #### L 100.0500, L500.4050 ####[facility] [address] [place], [address] CO2 [Moles/Vol] 22.0 mmol/L Normal 21.0-32.0 [facility] Comment on above: Performed By: #### L 100.0500, L500.4050 ####[facility] [address] [place], [address] Creatinine [Mass/Vol] 1.00 mg/dL Normal 0.70-1.20 [facility] Comment on above: Performed By: #### L 100.0500, L500.4050 ####[facility] [address] [place], [address] ECRCL 61.99 ml/min Normal 50-250 [facility] Comment on above: Performed By: #### L 100.0500, L500.4050 ####[facility] [address] [place], [address] GAP 13 Normal 5-15 [facility] Comment on above: Performed By: #### L 100.0500, L500.4050 ####[facility] [address] [place], [address] GFR/1.73 sq M.predicted among non-blacks MDRD (S/P/Bld) [Vol rate/Area] 71 mL/min/{1.73_m2} Normal >60 [facility] Comment on above: Result Comment: mL/m in/1.73m2 CKD-EPI Creatinine Equation (2020) Performed By: #### L 100.0500, L500.4050 ####[facility] [address] [place], [address] Globulin (S) [Mass/Vol] 2.9 g/dL Normal 2.2-4.2 [facility] Comment on above: Performed By: #### L 100.0500, L500.4050 ####[facility] [address] [place], [address] Glucose [Mass/Vol] 83 mg/dL Normal 70-99 [facility] Comment on above: Performed By: #### L 100.0500, L500.4050 ####[facility] [address] [place], [address] Potassium [Moles/Vol] 4.5 mmol/L Normal 3.3-5.1 [facility] Comment on above: Performed By: #### L 100.0500, L500.4050 ####[facility] [address] [place], [address] Sodium [Moles/Vol] 135 mmol/L Normal 133-145 [facility] Comment on above: Performed By: #### L 100.0500, L500.4050 ####[facility] [address] [place], [address] T PROT 7.1 g/dL Normal 5.9-8.4 [facility] Comment on above: Performed By: #### L 100.0500, L500.4050 ####[facility] [address] [place], [address] Urea nitrogen [Mass/Vol] 14 mg/dL Normal 4-19 [facility] Comment on above: Performed By: #### L 100.0500, L500.4050 ####[facility] [address] [place], [address] ERCP Biliary/Pancreason - ERCP Biliary/Pancreas Normal [facility] ERCP Reporton 08-21-2024 ERCP Report Normal [facility] Electrocardiogram reportOrde red By: Mercy Bishop on 08-21-2024 EKG study [facility] Work Phone: MR/POSTOP.ANEon 08-21-2024 MR/POSTOP.ANE Normal [facility] Special Stain Group IIon Special Stain Group II Normal [facility] Comment on above: Performed By: #### P SSII ####[facility] [address] [place], [address] 12 Lead EKGon 08-20-2024 12 Lead EKG Normal [facility] Absolute lymphocyte countOrd ered By: ED PROVIDER on 08-20-2024 Lymphocytes Auto (Unsp spec) [#/Vol] 1.29 10*3/uL 0.83-4.51 [facility] Anion gap in Serum or Plasma Ordered By: Simona Fernandez on 08-20-2024 Anion gap [Moles/Vol] 13 mmol/L 5-15 [facility] Automated lymphocyte count a s percentage of total leukocytesOrdered By: ED PROVIDER on 08-20-2024 Lymphocytes/100 WBC Auto (Unsp spec) 10.9 % Low 19-41 [facility] BUN/creatinine ratioOrdered By: Simona Fernandez on 08-20-2024 Urea nitrogen/Creatinine [Mass ratio] 16.5 mg/mg 10-20 [facility] Basophil percentageOrdered B y: ED PROVIDER on 08-20-2024 Basophils/100 WBC (Bld) 0.4 % 0-1 [facility] Bilirubin Test strip Ql (U)O rdered By: Simona Fernandez on 08-20-2024 Bilirubin Ql (U) Negative Negative [facility] Bilirubin, totalOrdered By: Simona Fernandez on 08-20-2024 Bilirubin [Mass/Vol] 0.67 mg/dL 0.00-1.30 [facility] CBC W/Diff, Automatedon Absolute Lymph 1.29 X10 3/uL Normal 0.83-4.51 [facility] Comment on above: Performed By: #### L 500.4050, L100.0100, L501.2450, L700.6800 ####[facility] [address] [place], [address] Absolute Neut 9.9 X10 3/uL High 2.0-7.7 [facility] Comment on above: Performed By: #### L 500.4050, L100.0100, L501.2450, L700.6800 ####[facility] [address] [place], [address] Basophils/100 WBC (Bld) 0.4 % Normal 0-1 [facility] Comment on above: Performed By: #### L 500.4050, L100.0100, L501.2450, L700.6800 ####[facility] [address] [place], [address] Eosinophils/100 WBC (Bld) 0.2 % Normal 0-5 [facility] Comment on above: Performed By: #### L 500.4050, L100.0100, L501.2450, L700.6800 ####[facility] [address] [place], [address] Erythrocyte distribution width (RBC) [Ratio] 13.6 % Normal 11.6-14.6 [facility] Comment on above: Performed By: #### L 500.4050, L100.0100, L501.2450, L700.6800 ####[facility] [address] [place], [address] Hematocrit (Bld) [Volume fraction] 38.1 % Normal 37-47 [facility] Comment on above: Performed By: #### L 500.4050, L100.0100, L501.2450, L700.6800 ####[facility] [address] [place], [address] Hemoglobin (Bld) [Mass/Vol] 12.6 g/dL Normal 12.0-15.0 [facility] Comment on above: Performed By: #### L 500.4050, L100.0100, L501.2450, L700.6800 ####[facility] [address] [place], [address] IG% 0.600 Normal 0.0-0.9 [facility] Comment on above: Result Comment: IG% - Immature Granulocytes (promyelocytes, myelocytes andmetamyelocytes) > 1% indicates that a LEFT SHIFT is Present. Performed By: #### L 500.4050, L100.0100, L501.2450, L700.6800 ####[facility] [address] [place], [address] Lymphocytes/100 WBC (Bld) 10.9 % Low 19-41 [facility] Comment on above: Performed By: #### L 500.4050, L100.0100, L501.2450, L700.6800 ####[facility] [address] [place], [address] MCH (RBC) [Entitic mass] 31.7 pg Normal 27.0-32.0 [facility] Comment on above: Performed By: #### L 500.4050, L100.0100, L501.2450, L700.6800 ####[facility] [address] [place], [address] MCHC (RBC) [Mass/Vol] 33.1 g/dL Normal 32-36 [facility] Comment on above: Performed By: #### L 500.4050, L100.0100, L501.2450, L700.6800 ####[facility] [address] [place], [address] MCV (RBC) [Entitic vol] 96.0 fL Normal 81-99 [facility] Comment on above: Performed By: #### L 500.4050, L100.0100, L501.2450, L700.6800 ####[facility] [address] [place], [address] Monocytes/100 WBC (Bld) 4.6 % Normal 0-10 [facility] Comment on above: Performed By: #### L 500.4050, L100.0100, L501.2450, L700.6800 ####[facility] [address] [place], [address] Neutrophils/100 WBC (Bld) 83.3 % High 47-70 [facility] Comment on above: Performed By: #### L 500.4050, L100.0100, L501.2450, L700.6800 ####[facility] [address] [place], [address] Nucleated RBC (Bld) [#/Vol] 0 10*3/uL Normal 0-5 [facility] Comment on above: Performed By: #### L 500.4050, L100.0100, L501.2450, L700.6800 ####[facility] [address] [place], [address] Platelet mean volume (Bld) [Entitic vol] 9.9 fL Normal 6.2-12.0 [facility] Comment on above: Performed By: #### L 500.4050, L100.0100, L501.2450, L700.6800 ####[facility] [address] [place], [address] Platelets (Bld) [#/Vol] 373 10*3/uL Normal 150-450 [facility] Comment on above: Performed By: #### L 500.4050, L100.0100, L501.2450, L700.6800 ####[facility] [address] [place], [address] RBC (Bld) [#/Vol] 3.97 10*6/uL Low 4.2-5.4 [facility] Comment on above: Performed By: #### L 500.4050, L100.0100, L501.2450, L700.6800 ####[facility] [address] [place], [address] RDW SD 47.5 fl High 35.1-43.9 [facility] Comment on above: Performed By: #### L 500.4050, L100.0100, L501.2450, L700.6800 ####[facility] [address] [place], [address] WBC (Bld) [#/Vol] 11.9 10*3/uL High 4.4-11.0 [facility] Comment on above: Performed By: #### L 500.4050, L100.0100, L501.2450, L700.6800 ####[facility] [address] [place], [address] Carbon dioxide, total [Moles /volume] in Central venous bloodOrdered By: Simona Fernandez on 08-20-2024 CO2 [Moles/Vol] 19.0 mmol/L Low 21.0-32.0 [facility] Chest PA and Lateralon 08-20 Chest PA and Lateral Normal [facility] Chloride assayOrdered By: Demetrio Fernandez on 08-20-2024 Chloride [Moles/Vol] 104 mmol/L 98-108 [facility] Comprehensive Metabolic Prof ilon 08-20-2024 Albumin [Mass/Vol] 4.0 g/dL Normal 3.5-5.0 [facility] Comment on above: Performed By: #### L 500.4050, L100.0100, L501.2450, L700.6800 ####[facility] [address] [place], [address] Albumin/Globulin [Mass ratio] 1.5 {ratio} Normal 0.9-2.4 [facility] Comment on above: Performed By: #### L 500.4050, L100.0100, L501.2450, L700.6800 ####[facility] [address] [place], [address] ALK PHOS 182 U/L High 35-104 [facility] Comment on above: Performed By: #### L 500.4050, L100.0100, L501.2450, L700.6800 ####[facility] [address] [place], [address] ALT [Catalytic activity/Vol] 103 U/L High <=34 [facility] Comment on above: Performed By: #### L 500.4050, L100.0100, L501.2450, L700.6800 ####[facility] [address] [place], [address] AST [Catalytic activity/Vol] 115 U/L High <=31 [facility] Comment on above: Performed By: #### L 500.4050, L100.0100, L501.2450, L700.6800 ####[facility] [address] [place], [address] Bilirubin [Mass/Vol] 0.67 mg/dL Normal 0.00-1.30 [facility] Comment on above: Performed By: #### L 500.4050, L100.0100, L501.2450, L700.6800 ####[facility] [address] [place], [address] BUN/CRE 16.5 RATIO Normal 10-20 [facility] Comment on above: Performed By: #### L 500.4050, L100.0100, L501.2450, L700.6800 ####[facility] [address] [place], [address] Calcium [Mass/Vol] 9.1 mg/dL Normal 7.6-11.0 [facility] Comment on above: Performed By: #### L 500.4050, L100.0100, L501.2450, L700.6800 ####[facility] [address] [place], [address] Chloride [Moles/Vol] 104 mmol/L Normal 98-108 [facility] Comment on above: Performed By: #### L 500.4050, L100.0100, L501.2450, L700.6800 ####[facility] [address] [place], [address] CO2 [Moles/Vol] 19.0 mmol/L Low 21.0-32.0 [facility] Comment on above: Performed By: #### L 500.4050, L100.0100, L501.2450, L700.6800 ####[facility] [address] [place], [address] Creatinine [Mass/Vol] 0.97 mg/dL Normal 0.70-1.20 [facility] Comment on above: Performed By: #### L 500.4050, L100.0100, L501.2450, L700.6800 ####[facility] [address] [place], [address] ECRCL 63.91 ml/min Normal 50-250 [facility] Comment on above: Performed By: #### L 500.4050, L100.0100, L501.2450, L700.6800 ####[facility] [address] [place], [address] GAP 13 Normal 5-15 [facility] Comment on above: Performed By: #### L 500.4050, L100.0100, L501.2450, L700.6800 ####[facility] [address] [place], [address] GFR/1.73 sq M.predicted among non-blacks MDRD (S/P/Bld) [Vol rate/Area] 74 mL/min/{1.73_m2} Normal >60 [facility] Comment on above: Result Comment: mL/m in/1.73m2 CKD-EPI Creatinine Equation (2020) Performed By: #### L 500.4050, L100.0100, L501.2450, L700.6800 ####[facility] [address] [place], [address] Globulin (S) [Mass/Vol] 2.7 g/dL Normal 2.2-4.2 [facility] Comment on above: Performed By: #### L 500.4050, L100.0100, L501.2450, L700.6800 ####[facility] [address] [place], [address] Glucose [Mass/Vol] 118 mg/dL High 70-99 [facility] Comment on above: Performed By: #### L 500.4050, L100.0100, L501.2450, L700.6800 ####[facility] [address] [place], [address] Potassium [Moles/Vol] 4.9 mmol/L Normal 3.3-5.1 [facility] Comment on above: Performed By: #### L 500.4050, L100.0100, L501.2450, L700.6800 ####[facility] [address] [place], [address] Sodium [Moles/Vol] 136 mmol/L Normal 133-145 [facility] Comment on above: Performed By: #### L 500.4050, L100.0100, L501.2450, L700.6800 ####[facility] [address] [place], [address] T PROT 6.6 g/dL Normal 5.9-8.4 [facility] Comment on above: Performed By: #### L 500.4050, L100.0100, L501.2450, L700.6800 ####[facility] [address] [place], [address] Urea nitrogen [Mass/Vol] 16 mg/dL Normal 4-19 [facility] Comment on above: Performed By: #### L 500.4050, L100.0100, L501.2450, L700.6800 ####[facility] [address] [place], [address] Emergency Department Summary on 08-20-2024 Emergency Department Summary Normal [facility] Eosinophil percentageOrdered By: ED PROVIDER on 08-20-2024 Eosinophils/100 WBC (Bld) 0.2 % 0-5 [facility] Erythrocyte distribution wid th ratioOrdered By: ED PROVIDER on 08-20-2024 Erythrocyte distribution width (RBC) [Ratio] 13.6 % 11.6-14.6 [facility] Erythrocyte distribution wid th standard deviationOrdered By: ED PROVIDER on 08-20-2024 Erythrocyte distribution width (RBC) [Ratio] 47.5 fl High 35.1-43.9 [facility] Glomerular filtration rate ( GFR) estimation/1.73 sq m using serum, plasma, or whole bOrdered By: Simona Fernandez on 08-20-2024 GFR/1.73 sq M.predicted among non-blacks MDRD (S/P/Bld) [Vol rate/Area] 74 mL/min/{1.73_m2} >60 [facility] H AND P Exam - Hospitaliston 08-20-2024 H&P Exam - Hospitalist Normal [facility] Hematocrit Auto (Bld) [Volum e fraction]Ordered By: ED PROVIDER on 08-20-2024 Hematocrit (Bld) [Volume fraction] 38.1 % 37-47 [facility] Hemoglobin measurementOrdere d By: ED PROVIDER on 08-20-2024 Hemoglobin (Bld) [Mass/Vol] 12.6 g/dL 12.0-15.0 [facility] Immature granulocytes/100 WB C Auto (Bld)Ordered By: ED PROVIDER on 08-20-2024 Immature granulocytes/100 WBC (Bld) 0.600 % 0.0-0.9 [facility] Ketones Test strip Ql (U)Ord ered By: Simona Fernandez on 08-20-2024 Ketones Ql (U) Negative Negative [facility] L503.7505on 08-20-2024 Natriuretic peptide B (Bld) [Mass/Vol] 3711 pg/mL High <=450 [facility] Comment on above: Result Comment: Hear t Failure Unlikely: < 300 pg/mLHeart Failure Likely< 50 Years: > 450 pg/mL50-75 Years: > 900 pg/mL>75 Years: > 1800 pg/mL Performed By: #### L 503.2105 ####[facility] [address] [place], [address] Lipaseon 08-20-2024 Lipase [Catalytic activity/Vol] 11 U/L Low 13-75 [facility] Comment on above: Result Comment: Liam rader note:LIPASE revised reference range effective 22.New Lipase methodology. Expected to produce lower valuesthan the previous assay method.NEW Reference Range: 13 - 75 U/L Performed By: #### L 500.4050, L100.0100, L501.2450, L700.6800 ####[facility] [address] [place], [address] Liveron 08-20-2024 Liver Normal [facility] MCV (mean corpuscular volume ) determinationOrdered By: ED PROVIDER on 08-20-2024 MCV (RBC) [Entitic vol] 96.0 fL 81-99 [facility] MR/CON.PCM.GIon 08-20-2024 MR/CON.PCM.GI Normal [facility] Mean corpuscular hemoglobin (MCH) determinationOrdered By: ED PROVIDER on 08-20-2024 MCH (RBC) [Entitic mass] 31.7 pg 27.0-32.0 [facility] Monocyte percentageOrdered B y: ED PROVIDER on 08-20-2024 Monocytes/100 WBC (Bld) 4.6 % 0-10 [facility] Mucus LM Ql (Urine sed)Order ed By: Simona Fernandez on 08-20-2024 Mucus Ql (Urine sed) 0 SEEN /hpf [facility] Natriuretic peptide.B prohor abbey N-Terminal [Mass/volume] in Serum or PlasmaOrdered By: Simona Fernandez on 08-20-2024 Natriuretic peptide.B prohormone N-Terminal [Mass/Vol] 3711 pg/mL High <450 [facility] Neutrophil percentageOrdered By: ED PROVIDER on 08-20-2024 Neutrophils/100 WBC (Bld) 83.3 % High 47-70 [facility] Nitrite Test strip Ql (U)Ord ered By: Simona Fernandez on 08-20-2024 Nitrite Ql (U) Negative Negative [facility] No Panel InformationOrdered By: Simona Fernandez on 08-20-2024 115 U/L High <32 [facility] Platelet countOrdered By: ED PROVIDER on 08-20-2024 Platelets (Bld) [#/Vol] 373 10*3/uL 150-450 [facility] Potassium measurement (mass/ volume)Ordered By: Simona Fernandez on 08-20-2024 Potassium (Unsp spec) [Mass/Vol] 4.9 mmol/L 3.3-5.1 [facility] ,Serum,hCG Quali.on 08-20-2024 HCG, SERUM QUAL Negative [facility] Comment on above: Performed By: #### L 500.4050, L100.0100, L501.2450, L700.6800 ####[facility] [address] [place], [address] ,Urineon 08-20-2024 Beta HCG ( test) Ql (U) Normal [facility] Comment on above: Order Comment: Femal es 12-55 or menstruation outside age range Result Comment: PREG SERUM ALREADY COMPLETED Performed By: #### L 400.7600 ####[facility] [address] [place], [address] INTERNAL QC OK? Normal [facility] Comment on above: Order Comment: Femal es 12-55 or menstruation outside age range Result Comment: PREG SERUM ALREADY COMPLETED Performed By: #### L 400.7600 ####[facility] [address] [place], [address] RECORD KIT LOT# Normal [facility] Comment on above: Order Comment: Femal es 12-55 or menstruation outside age range Result Comment: PREG SERUM ALREADY COMPLETED Performed By: #### L 400.7600 ####[facility] [address] [place], [address] Protein Test strip Ql (U)Ord ered By: Simona Fernandez on 08-20-2024 Protein Ql (U) 15 mg/dl High Negative [facility] RBC Auto (Bld) [#/Vol]Ordere d By: ED PROVIDER on 08-20-2024 RBC (Bld) [#/Vol] 3.97 10*6/uL Low 4.2-5.4 [facility] Serum beta-hCG test, qualita tiveOrdered By: Simona Fernandez on 08-20-2024 Beta HCG ( test) Ql Negative [facility] Serum creatinine measurement (mass/volume)Ordered By: Simona Fernandez on 08-20-2024 Creatinine [Mass/Vol] 0.97 mg/dL 0.70-1.20 [facility] Serum globulin measurementOr dered By: Simona Fernandez on 08-20-2024 Globulin (S) [Mass/Vol] 2.7 g/dL 2.2-4.2 [facility] Serum glucose measurement (m ass/volume)Ordered By: Simona Fernandez on 08-20-2024 Glucose [Mass/Vol] 118 mg/dL High 70-99 [facility] Serum or plasma alanine hair otransferase (ALT) measurementOrdered By: Simona Fernandez on 08-20-2024 ALT [Catalytic activity/Vol] 103 U/L High <35 [facility] Serum or plasma albumin leslie urement (mass/volume)Ordered By: Simona Fernandez on 08-20-2024 Albumin [Mass/Vol] 4.0 g/dL 3.5-5.0 [facility] Serum or plasma albumin/glob ulin mass ratioOrdered By: Simona Fernandez on 08-20-2024 Albumin/Globulin [Mass ratio] 1.5 {ratio} 0.9-2.4 [facility] Serum or plasma alkaline delfin sphatase measurementOrdered By: Simona Fernandez on 08-20-2024 ALP [Catalytic activity/Vol] 182 U/L High 35-104 [facility] Serum or plasma calcium leslie urement (mass/volume)Ordered By: Simona Fernandez on 08-20-2024 Calcium [Mass/Vol] 9.1 mg/dL 7.6-11.0 [facility] Serum or plasma urea nitroge n measurement (mass/volume)Ordered By: Simona Fernandez on 08-20-2024 Urea nitrogen [Mass/Vol] 16 mg/dL 4-19 [facility] Sodium levelOrdered By: Shanika Fernandez on 08-20-2024 Sodium [Moles/Vol] 136 mmol/L 133-145 [facility] Squamous epithelial cells de tection in urine sediment by light microscopyOrdered By: Simona Fernandez on 08-20-2024 Epithelial cells.squamous LM Ql (Urine sed) 0-5 SEEN /hpf 5-10 [facility] Total proteinOrdered By: Cherri Fernandez on 08-20-2024 Protein [Mass/Vol] 6.6 g/dL 5.9-8.4 [facility] Urinalysis, Completeon 08-20 EPI,SQUAMOUS 0-5 SEEN Normal 5-10 [facility] Comment on above: Order Comment: CLEAN CATCH Performed By: #### L 400.0001 ####[facility] [address] [place], [address] RBC 0-5 SEEN Normal 0-5 [facility] Comment on above: Order Comment: CLEAN CATCH Performed By: #### L 400.0001 ####[facility] [address] [place], [address] WBC 0-5 SEEN Normal 0-5 [facility] Comment on above: Order Comment: CLEAN CATCH Performed By: #### L 400.0001 ####[facility] [address] [place], [address] BACTERIA 0 SEEN Normal None Seen [facility] Comment on above: Order Comment: CLEAN CATCH Performed By: #### L 400.0001 ####[facility] [address] [place], [address] Mucus Ql (Urine sed) 0 SEEN Normal [facility] Comment on above: Order Comment: CLEAN CATCH Performed By: #### L 400.0001 ####[facility] [address] [place], [address] Urine clarityOrdered By: Cherri Fernandez on 08-20-2024 Clarity (U) Clear Clear [facility] Urine color determinationOrd ered By: Simona Fernandez on 08-20-2024 Color (U) Straw Yellow [facility] Urine glucose detectionOrder ed By: Simona Fenrandez on 08-20-2024 Glucose Ql (U) Normal mg/dl Normal [facility] Urine leukocyte esterase det ection by dipstickOrdered By: Simona Fernandez on 08-20-2024 Leukocyte esterase Test strip Ql (U) Negative Negative [facility] Urine pHOrdered By: Simona lucio on 08-20-2024 pH (U) 6.5 [pH] 5.0 - 8.0 [facility] Urine sediment bacteria coun t by microscopy (number/high power field)Ordered By: Simona Fernandez on 08-20-2024 Bacteria LM.HPF (Urine sed) [#/Area] 0 /[HPF] None Seen [facility] Urine specific gravity measu rementOrdered By: Simona Fernandez on 08-20-2024 Specific gravity (U) [Rel density] 1.010 1.002-1.03 0 [facility] Urine urobilinogen measureme ntOrdered By: Simona Fernandez on 08-20-2024 Urobilinogen Ql (U) Normal mg/dl Normal [facility] White blood cell (WBC) count Ordered By: ED PROVIDER on 08-20-2024 WBC (Bld) [#/Vol] 11.9 10*3/uL High 4.4-11.0 [facility] White blood cell countOrdere d By: Simona Fernandez on 08-20-2024 White blood cell count 0-5 SEEN /hpf 0-5 [facility] Ova and Parasites 8623on OP Normal [facility] Comment on above: Performed By: #### L 7000.0700, M100.6796, M100.0605, M100.637, L7400.3300, M600.5000 ####[facility] [address] [place], [address] ECG 12-LEADon 08-15-2024 ECG 12-LEAD Ventricular Rate 60 Atrial Rate 60 P-R Interval 170 QRS Duration 102 Q-T Interval 436 QTC Calculation(Bazett) 436 P [place] 17 R [place] -73 T [place] 83 QRS Count 10 Q Onset 205 P Onset 120 P Offset 185 T Offset 423 QTC Fredericia 436 Diagnosis Normal sinus rhythm Possible Left atrial enlargement Incomplete right bundle branch block Left anterior fascicular block Septal infarct , age undetermined Abnormal ECG When compared with ECG of 05-MAY-2006 11:19, Significant changes have occurred Confirmed by Grady Sky ([id number]) on 10/13/2024 10:41:57 AM Normal [facility]DR[facility] Comprehensive Panelon ANTI-DNA (DS)AB <1 Normal 0-9 [facility] Comment on above: Result Comment: Nega tive <5 Equivocal 5 - 9 Positive >9 Performed By: #### L 101.9900, L500.4050, L501.6710, L501.9985, L503.5510, L3200.0500, L3100.5440, L5500.0410, L3100.3425, L503.6150, L3300.0100, L3100.1850, L504.2610, L100.9950, L3300.1200, L100.0100, L501.9520, L300.3900, L3410.2400, L3200.1100, L3100.6900, L3400.0700, L503.6550, L3300.1800 ####[facility] [address] [place], [place], [address] ANTI-SS-A < 0.2 Normal 0.0-0.9 [facility] Comment on above: Performed By: #### L 101.9900, L500.4050, L501.6710, L501.9985, L503.5510, L3200.0500, L3100.5440, L5500.0410, L3100.3425, L503.6150, L3300.0100, L3100.1850, L504.2610, L100.9950, L3300.1200, L100.0100, L501.9520, L300.3900, L3410.2400, L3200.1100, L3100.6900, L3400.0700, L503.6550, L3300.1800 ####[facility] [address] [place], [address] ANTI-SS-B 0.2 AI Normal 0.0-0.9 [facility] Comment on above: Performed By: #### L 101.9900, L500.4050, L501.6710, L501.9985, L503.5510, L3200.0500, L3100.5440, L5500.0410, L3100.3425, L503.6150, L3300.0100, L3100.1850, L504.2610, L100.9950, L3300.1200, L100.0100, L501.9520, L300.3900, L3410.2400, L3200.1100, L3100.6900, L3400.0700, L503.6550, L3300.1800 ####[facility] [address] [place], [address] Abdomen/Pelvis without Conto n 08-11-2024 Abdomen/Pelvis without Cont Normal [facility] Absolute lymphocyte countOrd ered By: Gage Sharma on 08-11-2024 Lymphocytes Auto (Unsp spec) [#/Vol] 1.19 10*3/uL 0.83-4.51 [facility] Allergen, Food Profileon CLAM <0.10 Normal Class 0 [facility] Comment on above: Performed By: #### L 101.9900, L500.4050, L501.6710, L501.9985, L503.5510, L3200.0500, L3100.5440, L5500.0410, L3100.3425, L503.6150, L3300.0100, L3100.1850, L504.2610, L100.9950, L3300.1200, L100.0100, L501.9520, L300.3900, L3410.2400, L3200.1100, L3100.6900, L3400.0700, L503.6550, L3300.1800 ####[facility] [address] [place], [place], [address] CODFISH <0.10 Normal Class 0 [facility] Comment on above: Performed By: #### L 101.9900, L500.4050, L501.6710, L501.9985, L503.5510, L3200.0500, L3100.5440, L5500.0410, L3100.3425, L503.6150, L3300.0100, L3100.1850, L504.2610, L100.9950, L3300.1200, L100.0100, L501.9520, L300.3900, L3410.2400, L3200.1100, L3100.6900, L3400.0700, L503.6550, L3300.1800 ####[facility] [address] [place], [place], [address] COMMENT Comment Normal . [facility] Comment on above: Result Comment: Lupe urias of Specific IgE Class Description of Class ----- < 0.10 0 Negative 0.10 - 0.31 0/I Equivocal/Low 0.32 - 0.55 I Low 0.56 - 1.40 II Moderate 1.41 - 3.90 III High 3.91 - 19.00 IV Very High 19.01 - 100.00 V Very High >100.00 Very High Performed By: #### L 101.9900, L500.4050, L501.6710, L501.9985, L503.5510, L3200.0500, L3100.5440, L5500.0410, L3100.3425, L503.6150, L3300.0100, L3100.1850, L504.2610, L100.9950, L3300.1200, L100.0100, L501.9520, L300.3900, L3410.2400, L3200.1100, L3100.6900, L3400.0700, L503.6550, L3300.1800 ####[facility] [address] [place], [address] CORN <0.10 Normal Class 0 [facility] Comment on above: Performed By: #### L 101.9900, L500.4050, L501.6710, L501.9985, L503.5510, L3200.0500, L3100.5440, L5500.0410, L3100.3425, L503.6150, L3300.0100, L3100.1850, L504.2610, L100.9950, L3300.1200, L100.0100, L501.9520, L300.3900, L3410.2400, L3200.1100, L3100.6900, L3400.0700, L503.6550, L3300.1800 ####[facility] [address] [place], [address] EGG, WHITE <0.10 Normal Class 0 [facility] Comment on above: Performed By: #### L 101.9900, L500.4050, L501.6710, L501.9985, L503.5510, L3200.0500, L3100.5440, L5500.0410, L3100.3425, L503.6150, L3300.0100, L3100.1850, L504.2610, L100.9950, L3300.1200, L100.0100, L501.9520, L300.3900, L3410.2400, L3200.1100, L3100.6900, L3400.0700, L503.6550, L3300.1800 ####[facility] [address] [place], [address] MILK (COW) 0.24 kU/L Abnormal Class 0/I [facility] Comment on above: Performed By: #### L 101.9900, L500.4050, L501.6710, L501.9985, L503.5510, L3200.0500, L3100.5440, L5500.0410, L3100.3425, L503.6150, L3300.0100, L3100.1850, L504.2610, L100.9950, L3300.1200, L100.0100, L501.9520, L300.3900, L3410.2400, L3200.1100, L3100.6900, L3400.0700, L503.6550, L3300.1800 ####[facility] [address] [place], [place], [id number] PEANUT <0.10 Normal Class 0 [facility] Comment on above: Performed By: #### L 101.9900, L500.4050, L501.6710, L501.9985, L503.5510, L3200.0500, L3100.5440, L5500.0410, L3100.3425, L503.6150, L3300.0100, L3100.1850, L504.2610, L100.9950, L3300.1200, L100.0100, L501.9520, L300.3900, L3410.2400, L3200.1100, L3100.6900, L3400.0700, L503.6550, L3300.1800 ####[facility] [address] [place], [place], [id number] SCALLOP <0.10 Normal Class 0 [facility] Comment on above: Performed By: #### L 101.9900, L500.4050, L501.6710, L501.9985, L503.5510, L3200.0500, L3100.5440, L5500.0410, L3100.3425, L503.6150, L3300.0100, L3100.1850, L504.2610, L100.9950, L3300.1200, L100.0100, L501.9520, L300.3900, L3410.2400, L3200.1100, L3100.6900, L3400.0700, L503.6550, L3300.1800 ####[facility] [address] [place], [place], [id number] SESAME SEED <0.10 Normal Class 0 [facility] Comment on above: Result Comment: Perf ormed at: [facility] [id number] [place], [place] [id number] Director: Victor M Hargrove PhD, Phone: [phone] at: [facility] [address] [id number] Director: Isac Kemp MD, Phone: [phone] Performed By: #### L 101.9900, L500.4050, L501.6710, L501.9985, L503.5510, L3200.0500, L3100.5440, L5500.0410, L3100.3425, L503.6150, L3300.0100, L3100.1850, L504.2610, L100.9950, L3300.1200, L100.0100, L501.9520, L300.3900, L3410.2400, L3200.1100, L3100.6900, L3400.0700, L503.6550, L3300.1800 ####[facility] [address] [place], [address] SHRIMP <0.10 Normal Class 0 [facility] Comment on above: Performed By: #### L 101.9900, L500.4050, L501.6710, L501.9985, L503.5510, L3200.0500, L3100.5440, L5500.0410, L3100.3425, L503.6150, L3300.0100, L3100.1850, L504.2610, L100.9950, L3300.1200, L100.0100, L501.9520, L300.3900, L3410.2400, L3200.1100, L3100.6900, L3400.0700, L503.6550, L3300.1800 ####[facility] [address] [place], [place], [id number] SOYBEAN <0.10 Normal Class 0 [facility] Comment on above: Performed By: #### L 101.9900, L500.4050, L501.6710, L501.9985, L503.5510, L3200.0500, L3100.5440, L5500.0410, L3100.3425, L503.6150, L3300.0100, L3100.1850, L504.2610, L100.9950, L3300.1200, L100.0100, L501.9520, L300.3900, L3410.2400, L3200.1100, L3100.6900, L3400.0700, L503.6550, L3300.1800 ####[facility] [address] [place], [place], [id number] WALNUT,(Food) <0.10 Normal Class 0 [facility] Comment on above: Performed By: #### L 101.9900, L500.4050, L501.6710, L501.9985, L503.5510, L3200.0500, L3100.5440, L5500.0410, L3100.3425, L503.6150, L3300.0100, L3100.1850, L504.2610, L100.9950, L3300.1200, L100.0100, L501.9520, L300.3900, L3410.2400, L3200.1100, L3100.6900, L3400.0700, L503.6550, L3300.1800 ####[facility] [address] [place], [place], [id number] WHEAT <0.10 Normal Class 0 [facility] Comment on above: Performed By: #### L 101.9900, L500.4050, L501.6710, L501.9985, L503.5510, L3200.0500, L3100.5440, L5500.0410, L3100.3425, L503.6150, L3300.0100, L3100.1850, L504.2610, L100.9950, L3300.1200, L100.0100, L501.9520, L300.3900, L3410.2400, L3200.1100, L3100.6900, L3400.0700, L503.6550, L3300.1800 ####[facility] [address] [place], [address] Anion gap in Serum or Plasma Ordered By: Gage Sharma on 08-11-2024 Anion gap [Moles/Vol] 12 mmol/L 5-15 [facility] Automated lymphocyte count a s percentage of total leukocytesOrdered By: Gage Sharma on 08-11-2024 Lymphocytes/100 WBC Auto (Unsp spec) 11.4 % Low 19-41 [facility] BUN/creatinine ratioOrdered By: Gage korinLynne on 08-11-2024 Urea nitrogen/Creatinine [Mass ratio] 12.1 mg/mg - [facility] Basic Metabolic Profile (BMP )on 08-11-2024 BUN/CRE 12.1 RATIO Normal - [facility] Comment on above: Performed By: #### L 500.2500, L503.6005 ####[facility] [address] [place], [address] Calcium [Mass/Vol] 9.5 mg/dL Normal 7.6-11.0 [facility] Comment on above: Performed By: #### L 500.2500, L503.6005 ####[facility] [address] [place], [address] Chloride [Moles/Vol] 103 mmol/L Normal 98-108 [facility] Comment on above: Performed By: #### L 500.2500, L503.6005 ####[facility] [address] [place], [address] CO2 [Moles/Vol] 22.0 mmol/L Normal 21.0-32.0 [facility] Comment on above: Performed By: #### L 500.2500, L503.6005 ####[facility] [address] [place], [address] Creatinine [Mass/Vol] 0.74 mg/dL Normal 0.70-1.20 [facility] Comment on above: Performed By: #### L 500.2500, L503.6005 ####[facility] [address] [place], [address] ECRCL 83.77 ml/min Normal 50-250 [facility] Comment on above: Performed By: #### L 500.2500, L503.6005 ####[facility] [address] [place], [address] GAP 12 Normal 5-15 [facility] Comment on above: Performed By: #### L 500.2500, L503.6005 ####[facility] [address] [place], [address] GFR/1.73 sq M.predicted among non-blacks MDRD (S/P/Bld) [Vol rate/Area] 103 mL/min/{1.73_m2} Normal >60 [facility] Comment on above: Result Comment: mL/m in/1.73m2 CKD-EPI Creatinine Equation (2020) Performed By: #### L 500.2500, L503.6005 ####[facility] [address] [place], [address] Glucose [Mass/Vol] 90 mg/dL Normal 70-99 [facility] Comment on above: Performed By: #### L 500.2500, L503.6005 ####[facility] [address] [place], [address] Potassium [Moles/Vol] 4.2 mmol/L Normal 3.3-5.1 [facility] Comment on above: Performed By: #### L 500.2500, L503.6005 ####[facility] [address] [place], [address] Sodium [Moles/Vol] 137 mmol/L Normal 133-145 [facility] Comment on above: Performed By: #### L 500.2500, L503.6005 ####[facility] [address] [place], [address] Urea nitrogen [Mass/Vol] 9 mg/dL Normal 4-19 [facility] Comment on above: Performed By: #### L 500.2500, L503.6005 ####[facility] [address] [place], [address] Basophil percentageOrdered B y: Gage Sharma on 08-11-2024 Basophils/100 WBC (Bld) 0.9 % 0-1 [facility] Bilirubin Test strip Ql (U)O rdered By: Gage Sharma on 08-11-2024 Bilirubin Ql (U) Negative Negative [facility] Bilirubin directOrdered By: [facility] Center[facility]eliaLynne on 08-11-2024 Bilirubin.direct [Mass/Vol] 0.12 mg/dL 0.00-0.30 [facility] Bilirubin, totalOrdered By: [facility] Center[facility]eliaLynne on 08-11-2024 Bilirubin [Mass/Vol] 0.29 mg/dL 0.00-1.30 [facility] CBC W/Diff, Automatedon 07-14 Absolute Lymph 1.19 X10 3/uL Normal 0.83-4.51 [facility] Comment on above: Performed By: #### L 100.0100 ####[facility] [address] [place], [address] Absolute Neut 8.4 X10 3/uL High 2.0-7.7 [facility] Comment on above: Performed By: #### L 100.0100 ####[facility] [address] [place], [address] Basophils/100 WBC (Bld) 0.9 % Normal 0-1 [facility] Comment on above: Performed By: #### L 100.0100 ####[facility] [address] [place], [address] Eosinophils/100 WBC (Bld) 1.9 % Normal 0-5 [facility] Comment on above: Performed By: #### L 100.0100 ####[facility] [address] [place], [address] Erythrocyte distribution width (RBC) [Ratio] 13.1 % Normal 11.6-14.6 [facility] Comment on above: Performed By: #### L 100.0100 ####[facility] [address] [place], [address] Hematocrit (Bld) [Volume fraction] 40.9 % Normal 37-47 [facility] Comment on above: Performed By: #### L 100.0100 ####[facility] [address] [place], [address] Hemoglobin (Bld) [Mass/Vol] 13.5 g/dL Normal 12.0-15.0 [facility] Comment on above: Performed By: #### L 100.0100 ####[facility] [address] [place], [address] IG% 0.700 Normal 0.0-0.9 [facility] Comment on above: Result Comment: IG% - Immature Granulocytes (promyelocytes, myelocytes andmetamyelocytes) > 1% indicates that a LEFT SHIFT is Present. Performed By: #### L 100.0100 ####[facility] [address] [place], [address] Lymphocytes/100 WBC (Bld) 11.4 % Low 19-41 [facility] Comment on above: Performed By: #### L 100.0100 ####[facility] [address] [place], [address] MCH (RBC) [Entitic mass] 31.7 pg Normal 27.0-32.0 [facility] Comment on above: Performed By: #### L 100.0100 ####[facility] [address] [place], [address] MCHC (RBC) [Mass/Vol] 33.0 g/dL Normal 32-36 [facility] Comment on above: Performed By: #### L 100.0100 ####[facility] [address] [place], [address] MCV (RBC) [Entitic vol] 96.0 fL Normal 81-99 [facility] Comment on above: Performed By: #### L 100.0100 ####[facility] [address] [place], [address] Monocytes/100 WBC (Bld) 4.9 % Normal 0-10 [facility] Comment on above: Performed By: #### L 100.0100 ####[facility] [address] [place], [address] Neutrophils/100 WBC (Bld) 80.2 % High 47-70 [facility] Comment on above: Performed By: #### L 100.0100 ####[facility] [address] [place], [address] Nucleated RBC (Bld) [#/Vol] 0 10*3/uL Normal 0-5 [facility] Comment on above: Performed By: #### L 100.0100 ####[facility] [address] [place], [address] Platelet mean volume (Bld) [Entitic vol] 9.9 fL Normal 6.2-12.0 [facility] Comment on above: Performed By: #### L 100.0100 ####[facility] [address] [place], [address] Platelets (Bld) [#/Vol] 433 10*3/uL Normal 150-450 [facility] Comment on above: Performed By: #### L 100.0100 ####[facility] [address] [place], [address] RBC (Bld) [#/Vol] 4.26 10*6/uL Normal 4.2-5.4 [facility] Comment on above: Performed By: #### L 100.0100 ####[facility] [address] [place], [address] RDW SD 46.5 fl High 35.1-43.9 [facility] Comment on above: Performed By: #### L 100.0100 ####[facility] [address] [place], [address] WBC (Bld) [#/Vol] 10.5 10*3/uL Normal 4.4-11.0 [facility] Comment on above: Performed By: #### L 100.0100 ####[facility] [address] [place], [address] Calprotectin, Stoolon [address] 13 ug/g Normal 0-120 [facility] Comment on above: Result Comment: Conc entration Interpretation Follow-Up< 5 - 50 ug/g Normal None>50 -120 ug/g Borderline Re-evaluate in 4-6 weeks >120 ug/g Abnormal Repeat as clinically indicatedPerformed at: - [facility] [address] [id number] Director: Isac Kemp MD, Phone: [phone] Performed By: #### L 7000.0700, M100.6796, M100.0605, M100.637, L7400.3300, M600.5000 ####[facility] [address] [place], [address] Carbon dioxide, total [Moles /volume] in Central venous bloodOrdered By: Gage Sharma on 08-11-2024 CO2 [Moles/Vol] 22.0 mmol/L 21.0-32.0 [facility] Chloride assayOrdered By: Jose Maria Sharma on 08-11-2024 Chloride [Moles/Vol] 103 mmol/L 98-108 [facility] Summary on 08-11-2024 Emergency Department Summary Normal [facility] Eosinophil percentageOrdered By: Gage Sharma on 08-11-2024 Eosinophils/100 WBC (Bld) 1.9 % 0-5 [facility] Erythrocyte distribution wid th ratioOrdered By: Gage Sharma on 08-11-2024 Erythrocyte distribution width (RBC) [Ratio] 13.1 % 11.6-14.6 [facility] Erythrocyte distribution wid th standard deviationOrdered By: Gage Batista on 08-11-2024 Erythrocyte distribution width (RBC) [Ratio] 46.5 fl High 35.1-43.9 [facility] Glomerular filtration rate ( GFR) estimation/1.73 sq m using serum, plasma, or whole bOrdered By: Gage Sharma on 08-11-2024 GFR/1.73 sq M.predicted among non-blacks MDRD (S/P/Bld) [Vol rate/Area] 103 mL/min/{1.73_m2} >60 [facility] Hematocrit Auto (Bld) [Volum e fraction]Ordered By: Gage Sharma on 08-11-2024 Hematocrit (Bld) [Volume fraction] 40.9 % 37-47 [facility] Hemoglobin measurementOrdere d By: Gage Sharma on 08-11-2024 Hemoglobin (Bld) [Mass/Vol] 13.5 g/dL 12.0-15.0 [facility] Immature granulocytes/100 WB C Auto (Bld)Ordered By: Gage Sharma on 08-11-2024 Immature granulocytes/100 WBC (Bld) 0.700 % 0.0-0.9 [facility] Ketones Test strip Ql (U)Ord ered By: Gage Sharma on 08-11-2024 Ketones Ql (U) Negative Negative [facility] Lactic Acidon 08-11-2024 Lactate [Moles/Vol] mmol/L Normal 0.0-2.0 [facility] Comment on above: Order Comment: Y Performed By: #### L 500.2500, L503.6005 ####[facility] [address] [place], [address] Lipaseon 08-11-2024 Lipase [Catalytic activity/Vol] 17 U/L Normal 13-75 [facility] Comment on above: Result Comment: Liam rader note:LIPASE revised reference range effective 22.New Lipase methodology. Expected to produce lower valuesthan the previous assay method.NEW Reference Range: 13 - 75 U/L Performed By: #### L 500.3400, L501.2450 ####[facility] [address] [place], [address] Liver Profileon 08-11-2024 Albumin [Mass/Vol] 4.0 g/dL Normal 3.5-5.0 [facility] Comment on above: Performed By: #### L 500.3400, L501.2450 ####[facility] [address] [place], [address] ALK PHOS 173 U/L High 35-104 [facility] Comment on above: Performed By: #### L 500.3400, L501.2450 ####[facility] [address] [place], [address] ALT [Catalytic activity/Vol] 32 U/L Normal <=34 [facility] Comment on above: Performed By: #### L 500.3400, L501.2450 ####[facility] [address] [place], [address] AST [Catalytic activity/Vol] 38 U/L High <=31 [facility] Comment on above: Performed By: #### L 500.3400, L501.2450 ####[facility] [address] [place], [address] Bilirubin [Mass/Vol] 0.29 mg/dL Normal 0.00-1.30 [facility] Comment on above: Performed By: #### L 500.3400, L501.2450 ####[facility] [address] [place], [address] Bilirubin.direct [Mass/Vol] 0.12 mg/dL Normal 0.00-0.30 [facility] Comment on above: Performed By: #### L 500.3400, L501.2450 ####[facility] [address] [place], [address] Globulin (S) [Mass/Vol] 3.1 g/dL Normal 2.2-4.2 [facility] Comment on above: Performed By: #### L 500.3400, L501.2450 ####[facility] [address] [place], [address] T PROT 7.2 g/dL Normal 5.9-8.4 [facility] Comment on above: Performed By: #### L 500.3400, L501.2450 ####[facility] [address] [place], [address] MCV (mean corpuscular volume ) determinationOrdered By: Gage Sharma on 08-11-2024 MCV (RBC) [Entitic vol] 96.0 fL 81-99 [facility] Mean corpuscular hemoglobin (MCH) determinationOrdered By: Gage Sharma on 08-11-2024 MCH (RBC) [Entitic mass] 31.7 pg 27.0-32.0 [facility] Monocyte percentageOrdered B y: Gage Sharam on 08-11-2024 Monocytes/100 WBC (Bld) 4.9 % 0-10 [facility] Mucus LM Ql (Urine sed)Order ed By: Gage Sharma on 08-11-2024 Mucus Ql (Urine sed) 0 SEEN /hpf [facility] Neutrophil percentageOrdered By: Gage Sharma on 08-11-2024 Neutrophils/100 WBC (Bld) 80.2 % High 47-70 [facility] Nitrite Test strip Ql (U)Ord ered By: Gage Sharma on 08-11-2024 Nitrite Ql (U) Negative Negative [facility] No Panel InformationOrdered By: Gage Sharma on 08-11-2024 38 U/L High <32 [facility] Platelet countOrdered By: Jose Maria Sharma on 08-11-2024 Platelets (Bld) [#/Vol] 433 10*3/uL 150-450 [facility] Potassium measurement (mass/ volume)Ordered By: Gage Sharma on 08-11-2024 Potassium (Unsp spec) [Mass/Vol] 4.2 mmol/L 3.3-5.1 [facility] ,Urineon 08-11-2024 Beta HCG ( test) Ql (U) Negative Normal [facility] Comment on above: Result Comment: Very dilute urine specimens, as indicated by a low specificgravity, may not contain hr representative levels of hCG.If is still suspected, a first morning urinespecimen should be collected 48 hours later and tested. Performed By: #### L 812.0217 ####[facility] [address] [place], [place], [id number] Protein Test strip Ql (U)Ord ered By: Gage Sharma on 08-11-2024 Protein Ql (U) 15 mg/dl High Negative [facility] RBC Auto (Bld) [#/Vol]Ordere d By: Gage Sharma on 08-11-2024 RBC (Bld) [#/Vol] 4.26 10*6/uL 4.2-5.4 [facility] Serum creatinine measurement (mass/volume)Ordered By: Gage Sharma on 08-11-2024 Creatinine [Mass/Vol] 0.74 mg/dL 0.70-1.20 [facility] Serum globulin measurementOr dered By: Gage Sharma on 08-11-2024 Globulin (S) [Mass/Vol] 3.1 g/dL 2.2-4.2 [facility] Serum glucose measurement (m ass/volume)Ordered By: Gage Sharma on 08-11-2024 Glucose [Mass/Vol] 90 mg/dL 70-99 [facility] Serum or plasma alanine hair otransferase (ALT) measurementOrdered By: Gage Sharma on 08-11-2024 ALT [Catalytic activity/Vol] 32 U/L <35 [facility] Serum or plasma albumin leslie urement (mass/volume)Ordered By: Gage Batista on 08-11-2024 Albumin [Mass/Vol] 4.0 g/dL 3.5-5.0 [facility] Serum or plasma alkaline delfin sphatase measurementOrdered By: Gage Sharma on 08-11-2024 ALP [Catalytic activity/Vol] 173 U/L High 35-104 [facility] Serum or plasma calcium leslie urement (mass/volume)Ordered By: Gage Batista on 08-11-2024 Calcium [Mass/Vol] 9.5 mg/dL 7.6-11.0 [facility] Serum or plasma urea nitroge n measurement (mass/volume)Ordered By: Gage Sharma on 08-11-2024 Urea nitrogen [Mass/Vol] 9 mg/dL 4-19 [facility] Sodium levelOrdered By: Edd Shrama on 08-11-2024 Sodium [Moles/Vol] 137 mmol/L 133-145 [facility] Squamous epithelial cells de tection in urine sediment by light microscopyOrdered By: Gage Sharma on 08-11-2024 Epithelial cells.squamous LM Ql (Urine sed) 0-5 SEEN /hpf 5-10 [facility] Total proteinOrdered By: Zev Sharma on 08-11-2024 Protein [Mass/Vol] 7.2 g/dL 5.9-8.4 [facility] Urinalysis, Completeon 08-11 BACTERIA RARE Normal None Seen [facility] Comment on above: Order Comment: CLEAN CATCH Performed By: #### L 400.0001 ####[facility] [address] [place], [address] EPI,SQUAMOUS 0-5 SEEN Normal 5-10 [facility] Comment on above: Order Comment: CLEAN CATCH Performed By: #### L 400.0001 ####[facility] [address] [place], [address] RBC 0-5 SEEN Normal 0-5 [facility] Comment on above: Order Comment: CLEAN CATCH Performed By: #### L 400.0001 ####[facility] [address] [facility] [address] WBC 0-5 SEEN Normal 0-5 [facility] Comment on above: Order Comment: CLEAN CATCH Performed By: #### L 400.0001 ####[facility] [address] [place], [address] Mucus Ql (Urine sed) 0 SEEN Normal [facility] Comment on above: Order Comment: CLEAN CATCH Performed By: #### L 400.0001 ####[facility] [address] [facility] [id number] Urine clarityOrdered By: Zev Sharma on 08-11-2024 Clarity (U) Sl. Cloudy Clear [facility] Urine color determinationOrd ered By: Gage Sharma on 08-11-2024 Color (U) Yellow Yellow [facility] Urine glucose detectionOrder ed By: Gage Sharma on 08-11-2024 Glucose Ql (U) Normal mg/dl Normal [facility] Urine leukocyte esterase det ection by dipstickOrdered By: Gage Sharma on 08-11-2024 Leukocyte esterase Test strip Ql (U) Negative Negative [facility] Urine pHOrdered By: Gage Keller on 08-11-2024 pH (U) 7.0 [pH] 5.0 - 8.0 [facility] Urine testOrdered By: Gage Sharma on 08-11-2024 HCG ( test) Ql (U) Negative [facility] Urine sediment bacteria coun t by microscopy (number/high power field)Ordered By: Gage Sharma on 08-11-2024 Bacteria LM.HPF (Urine sed) [#/Area] RARE /hpf None Seen [facility] Urine specific gravity measu rementOrdered By: Gage CasanovaLynne on 08-11-2024 Specific gravity (U) [Rel density] 1.010 1.002-1.03 0 [facility] Urine urobilinogen measureme ntOrdered By: Gage Sharma on 08-11-2024 Urobilinogen Ql (U) Normal mg/dl Normal [facility] White blood cell (WBC) count Ordered By: Gage JocelyneLynne on 08-11-2024 WBC (Bld) [#/Vol] 10.5 10*3/uL 4.4-11.0 [facility] White blood cell countOrdere d By: Gage Sharma on 08-11-2024 White blood cell count 0-5 SEEN /hpf 0-5 [facility] 36on 08-10-2024 36 S: Patient called [facility] with complaints of back and abdominal pain. B: Symptoms began 15 minutes prior to call. A: Patient states she had a small bowel movement, and afterwards, begin having severe 8/10 back pain, radiating to abdomen, with severe nausea. Patient states she has been taking Motrin for relief of pain. In audible distress throughout call. 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 Denies recent injury, fever, dysuria, urinary retention, incontinence, weakness, numbness, or hematuria. R: Patient instructed to proceed to evaluation of severe, sudden onset pain. Patient verbalizes understanding, and states she will proceed to [facility], and that her SO will drive her. Reason for Disposition Patient sounds very sick or weak to the triager Protocols used: Back Umeb-[id number]-AU Normal [facility] ANCAon 08-10-2024 Atypical pANCA <1:20 Normal Neg:<1:20 [facility] Comment on above: Order Comment: Test( s) 300611-[id number], Serum or Plasmawas developed and its performance characteristicsdetermined by [employer]. It has not been cleared or approvedby the Food and Drug Administration. Result Comment: The atypical pANCA pattern has been observed in asignificant percentage of patients with ulcerative colitis,primary sclerosing cholangitis and autoimmune hepatitis. Performed By: #### L 101.9900, L500.4050, L501.6710, L501.9985, L503.5510, L3200.0500, L3100.5440, L5500.0410, L3100.3425, L503.6150, L3300.0100, L3100.1850, L504.2610, L100.9950, L3300.1200, L100.0100, L501.9520, L300.3900, L3410.2400, L3200.1100, L3100.6900, L3400.0700, L503.6550, L3300.1800 ####[facility] [address] [place], [place], [address] Cytoplasmic Ab <1:20 Normal Neg:<1:20 [facility] Comment on above: Order Comment: Test( s) 083022-Slswcr, Serum or Plasmawas developed and its performance characteristicsdetermined by [employer]. It has not been cleared or approvedby the Food and Drug Administration. Performed By: #### L 101.9900, L500.4050, L501.6710, L501.9985, L503.5510, L3200.0500, L3100.5440, L5500.0410, L3100.3425, L503.6150, L3300.0100, L3100.1850, L504.2610, L100.9950, L3300.1200, L100.0100, L501.9520, L300.3900, L3410.2400, L3200.1100, L3100.6900, L3400.0700, L503.6550, L3300.1800 ####[facility] [address] [place], [place], [id number] Perinuclear Ab. <1:20 Normal Neg:<1:20 [facility] Comment on above: Order Comment: Test( s) 138374-Hpyoud, Serum or Plasmawas developed and its performance characteristicsdetermined by [employer]. It has not been cleared or approvedby the Food and Drug Administration. Result Comment: The presence of positive fluorescence exhibiting P-ANCA orC-ANCA patterns alone is not specific for the diagnosis ofWegener's Granulomatosis (WG) or microscopic polyangiitis.Decisions about treatment should not be based solely onANCA IFA results. The [employer] ANCA Group Consensusrecommends follow up testing of positive sera with both WY-3 and MPO-ANCA enzyme immunoassays. As many as 5% serumsamples are positive only by EIA. Ref. AM J Clin Gxcqks5326;111:507-513. Performed By: #### L 101.9900, L500.4050, L501.6710, L501.9985, L503.5510, L3200.0500, L3100.5440, L5500.0410, L3100.3425, L503.6150, L3300.0100, L3100.1850, L504.2610, L100.9950, L3300.1200, L100.0100, L501.9520, L300.3900, L3410.2400, L3200.1100, L3100.6900, L3400.0700, L503.6550, L3300.1800 ####[facility] [address] [place], [place], [id number] Angiotensin Convert Enzymeon 08-10-2024 ANGIOT-CONV.ENZ 62 U/L Normal 14-82 [facility] Comment on above: Order Comment: Test( s) 533027-Ijwfht, Serum or Plasmawas developed and its performance characteristicsdetermined by [employer]. It has not been cleared or approvedby the Food and Drug Administration. Performed By: #### L 101.9900, L500.4050, L501.6710, L501.9985, L503.5510, L3200.0500, L3100.5440, L5500.0410, L3100.3425, L503.6150, L3300.0100, L3100.1850, L504.2610, L100.9950, L3300.1200, L100.0100, L501.9520, L300.3900, L3410.2400, L3200.1100, L3100.6900, L3400.0700, L503.6550, L3300.1800 ####[facility] [address] [place], [address] Celiac Disease Profileon ENDOMYSIAL IGA Negative Normal Negative [facility] Comment on above: Order Comment: Test( s) 668644-Rgbosw, Serum or Plasmawas developed and its performance characteristicsdetermined by [employer]. It has not been cleared or approvedby the Food and Drug Administration. Performed By: #### L 101.9900, L500.4050, L501.6710, L501.9985, L503.5510, L3200.0500, L3100.5440, L5500.0410, L3100.3425, L503.6150, L3300.0100, L3100.1850, L504.2610, L100.9950, L3300.1200, L100.0100, L501.9520, L300.3900, L3410.2400, L3200.1100, L3100.6900, L3400.0700, L503.6550, L3300.1800 ####[facility] [address] [place], [address] tTG IGA <2 Normal 0-3 [facility] Comment on above: Order Comment: Test( s) 819735-Wxvbvk, Serum or Plasmawas developed and its performance characteristicsdetermined by [employer]. It has not been cleared or approvedby the Food and Drug Administration. Result Comment: Nega tive 0 - 3 Weak Positive 4 - 10 Positive >10 Tissue Transglutaminase (tTG) has been identified as the endomysial antigen. Studies have demonstr- ated that endomysial IgA antibodies have over 99% specificity for gluten sensitive enteropathy. Performed By: #### L 101.9900, L500.4050, L501.6710, L501.9985, L503.5510, L3200.0500, L3100.5440, L5500.0410, L3100.3425, L503.6150, L3300.0100, L3100.1850, L504.2610, L100.9950, L3300.1200, L100.0100, L501.9520, L300.3900, L3410.2400, L3200.1100, L3100.6900, L3400.0700, L503.6550, L3300.1800 ####[facility] [address] [place], [address] Ceruloplasminon 08-10-2024 CERULOPLASMIN 42.4 mg/dL High 19.0-39.0 [facility] Comment on above: Order Comment: Test( s) 522783-Uiixct, Serum or Plasmawas developed and its performance characteristicsdetermined by [employer]. It has not been cleared or approvedby the Food and Drug Administration. Performed By: #### L 101.9900, L500.4050, L501.6710, L501.9985, L503.5510, L3200.0500, L3100.5440, L5500.0410, L3100.3425, L503.6150, L3300.0100, L3100.1850, L504.2610, L100.9950, L3300.1200, L100.0100, L501.9520, L300.3900, L3410.2400, L3200.1100, L3100.6900, L3400.0700, L503.6550, L3300.1800 ####[facility] [address] [place], [place], [address] Copper, Serum or Plasmaon COPPER, SERUM 159 ug/dL High 80-158 [facility] Comment on above: Order Comment: Test( s) 193312-Kmcgib, Serum or Plasmawas developed and its performance characteristicsdetermined by [employer]. It has not been cleared or approvedby the Food and Drug Administration. Result Comment: Dete ction Limit = 5 Performed By: #### L 101.9900, L500.4050, L501.6710, L501.9985, L503.5510, L3200.0500, L3100.5440, L5500.0410, L3100.3425, L503.6150, L3300.0100, L3100.1850, L504.2610, L100.9950, L3300.1200, L100.0100, L501.9520, L300.3900, L3410.2400, L3200.1100, L3100.6900, L3400.0700, L503.6550, L3300.1800 ####[facility] [address] [place], [place], [phone] Gastrin, Serumon 08-10-2024 GASTRIN 17 pg/mL Normal 0-115 [facility] Comment on above: Order Comment: Test( s) 523073-Vgenia, Serum or Plasmawas developed and its performance characteristicsdetermined by [employer]. It has not been cleared or approvedby the Food and Drug Administration. Result Comment: [facility] Runnerulite 2000 Immunochemiluminometric assay (ICMA)Values obtained with different assay methods or kits cannotbe used interchangeably. Results cannot be interpreted asabsolute evidence of the presence or absence of malignantdisease. Performed By: #### L 101.9900, L500.4050, L501.6710, L501.9985, L503.5510, L3200.0500, L3100.5440, L5500.0410, L3100.3425, L503.6150, L3300.0100, L3100.1850, L504.2610, L100.9950, L3300.1200, L100.0100, L501.9520, L300.3900, L3410.2400, L3200.1100, L3100.6900, L3400.0700, L503.6550, L3300.1800 ####[facility] [address] [place], [place], [address] Giardia Lamblia, Stool EIAon 08-10-2024 Giardia Stool Negative Normal Negative [facility] Comment on above: Result Comment: Perf ormed at: [address] [id number] Director: Victor M Hargrove PhD, Phone: [phone] Performed By: #### L 7000.0700, M100.6796, M100.0605, M100.637, L7400.3300, M600.5000 ####[facility] [address] [place], [place], [address] Haptoglobinon 08-10-2024 HAPTOGLOBIN 373 mg/dL High 42-296 [facility] Comment on above: Order Comment: Test( s) 619143-Ltjxhs, Serum or Plasmawas developed and its performance characteristicsdetermined by [employer]. It has not been cleared or approvedby the Food and Drug Administration. Result Comment: Perf ormed at: [facility] [address] [id number] Director: Victor M Hargrove PhD, Phone: [phone] at: [address] [id number] Director: Isac Kemp MD, Phone: [phone] Performed By: #### L 101.9900, L500.4050, L501.6710, L501.9985, L503.5510, L3200.0500, L3100.5440, L5500.0410, L3100.3425, L503.6150, L3300.0100, L3100.1850, L504.2610, L100.9950, L3300.1200, L100.0100, L501.9520, L300.3900, L3410.2400, L3200.1100, L3100.6900, L3400.0700, L503.6550, L3300.1800 ####[facility] [address] [facility] [place], [place], [phone] DAVID + Protein Elect, Serumon 08-10-2024 Albumin [Mass/Vol] 3.4 g/dL Normal 2.9-4.4 [facility] Comment on above: Order Comment: Test( s) 779582-Mptijl, Serum or Plasmawas developed and its performance characteristicsdetermined by [employer]. It has not been cleared or approvedby the Food and Drug Administration.N Performed By: #### L 101.9900, L500.4050, L501.6710, L501.9985, L503.5510, L3200.0500, L3100.5440, L5500.0410, L3100.3425, L503.6150, L3300.0100, L3100.1850, L504.2610, L100.9950, L3300.1200, L100.0100, L501.9520, L300.3900, L3410.2400, L3200.1100, L3100.6900, L3400.0700, L503.6550, L3300.1800 ####[facility] [address] [place], [address] Albumin/Globulin [Mass ratio] 1.0 {ratio} Normal 0.7-1.7 [facility] Comment on above: Order Comment: Test( s) 677248-Cbicvf, Serum or Plasmawas developed and its performance characteristicsdetermined by [employer]. It has not been cleared or approvedby the Food and Drug Administration.N Performed By: #### L 101.9900, L500.4050, L501.6710, L501.9985, L503.5510, L3200.0500, L3100.5440, L5500.0410, L3100.3425, L503.6150, L3300.0100, L3100.1850, L504.2610, L100.9950, L3300.1200, L100.0100, L501.9520, L300.3900, L3410.2400, L3200.1100, L3100.6900, L3400.0700, L503.6550, L3300.1800 ####[facility] [address] [facility] [place], [place], [phone] EVKJR-4-DBIQ 0.2 g/dL Normal 0.0-0.4 [facility] Comment on above: Order Comment: Test( s) 022635-Wvahmh, Serum or Plasmawas developed and its performance characteristicsdetermined by [employer]. It has not been cleared or approvedby the Food and Drug Administration.N Performed By: #### L 101.9900, L500.4050, L501.6710, L501.9985, L503.5510, L3200.0500, L3100.5440, L5500.0410, L3100.3425, L503.6150, L3300.0100, L3100.1850, L504.2610, L100.9950, L3300.1200, L100.0100, L501.9520, L300.3900, L3410.2400, L3200.1100, L3100.6900, L3400.0700, L503.6550, L3300.1800 ####[facility] [address] [facility] [place], [place], [phone] LBPXS-8-PDNM 1.1 g/dL High 0.4-1.0 [facility] Comment on above: Order Comment: Test( s) 040624-Wzmqhf, Serum or Plasmawas developed and its performance characteristicsdetermined by [employer]. It has not been cleared or approvedby the Food and Drug Administration.N Performed By: #### L 101.9900, L500.4050, L501.6710, L501.9985, L503.5510, L3200.0500, L3100.5440, L5500.0410, L3100.3425, L503.6150, L3300.0100, L3100.1850, L504.2610, L100.9950, L3300.1200, L100.0100, L501.9520, L300.3900, L3410.2400, L3200.1100, L3100.6900, L3400.0700, L503.6550, L3300.1800 ####[facility] [address] [facility] [place], [place], [phone] BETA GLOBULIN 1.2 g/dL Normal 0.7-1.3 [facility] Comment on above: Order Comment: Test( s) 375570-Aatwpy, Serum or Plasmawas developed and its performance characteristicsdetermined by [employer]. It has not been cleared or approvedby the Food and Drug Administration.N Performed By: #### L 101.9900, L500.4050, L501.6710, L501.9985, L503.5510, L3200.0500, L3100.5440, L5500.0410, L3100.3425, L503.6150, L3300.0100, L3100.1850, L504.2610, L100.9950, L3300.1200, L100.0100, L501.9520, L300.3900, L3410.2400, L3200.1100, L3100.6900, L3400.0700, L503.6550, L3300.1800 ####[facility] [address] [place], [address] GAMMA GLOBULIN 1.0 g/dL Normal 0.4-1.8 [facility] Comment on above: Order Comment: Test( s) 747785-Wtlezi, Serum or Plasmawas developed and its performance characteristicsdetermined by [employer]. It has not been cleared or approvedby the Food and Drug Administration.N Performed By: #### L 101.9900, L500.4050, L501.6710, L501.9985, L503.5510, L3200.0500, L3100.5440, L5500.0410, L3100.3425, L503.6150, L3300.0100, L3100.1850, L504.2610, L100.9950, L3300.1200, L100.0100, L501.9520, L300.3900, L3410.2400, L3200.1100, L3100.6900, L3400.0700, L503.6550, L3300.1800 ####[facility] [address] [place], [place], [phone] Globulin (S) [Mass/Vol] 3.5 g/dL Normal 2.2-3.9 [facility] Comment on above: Order Comment: Test( s) 037396-Vapvqc, Serum or Plasmawas developed and its performance characteristicsdetermined by [employer]. It has not been cleared or approvedby the Food and Drug Administration.N Performed By: #### L 101.9900, L500.4050, L501.6710, L501.9985, L503.5510, L3200.0500, L3100.5440, L5500.0410, L3100.3425, L503.6150, L3300.0100, L3100.1850, L504.2610, L100.9950, L3300.1200, L100.0100, L501.9520, L300.3900, L3410.2400, L3200.1100, L3100.6900, L3400.0700, L503.6550, L3300.1800 ####[facility] [address] [place], [place], [phone] DAVID RESULT,S Comment Normal . [facility] Comment on above: Order Comment: Test( s) 791731-Stiqnu, Serum or Plasmawas developed and its performance characteristicsdetermined by [employer]. It has not been cleared or approvedby the Food and Drug Administration.N Result Comment: No m onoclonality detected. Performed By: #### L 101.9900, L500.4050, L501.6710, L501.9985, L503.5510, L3200.0500, L3100.5440, L5500.0410, L3100.3425, L503.6150, L3300.0100, L3100.1850, L504.2610, L100.9950, L3300.1200, L100.0100, L501.9520, L300.3900, L3410.2400, L3200.1100, L3100.6900, L3400.0700, L503.6550, L3300.1800 ####[facility] [address] [facility] [place], [place], [phone] IMMUNOGLOB A QN 134 mg/dL Normal 87-352 [facility] Comment on above: Order Comment: Test( s) 043324-Meciyw, Serum or Plasmawas developed and its performance characteristicsdetermined by [employer]. It has not been cleared or approvedby the Food and Drug Administration.N Performed By: #### L 101.9900, L500.4050, L501.6710, L501.9985, L503.5510, L3200.0500, L3100.5440, L5500.0410, L3100.3425, L503.6150, L3300.0100, L3100.1850, L504.2610, L100.9950, L3300.1200, L100.0100, L501.9520, L300.3900, L3410.2400, L3200.1100, L3100.6900, L3400.0700, L503.6550, L3300.1800 ####[facility] [address] [facility] [place], [place], [phone] IMMUNOGLOB M QN 217 mg/dL Normal 26-217 [facility] Comment on above: Order Comment: Test( s) 293671-Bkcmsj, Serum or Plasmawas developed and its performance characteristicsdetermined by [employer]. It has not been cleared or approvedby the Food and Drug Administration.N Performed By: #### L 101.9900, L500.4050, L501.6710, L501.9985, L503.5510, L3200.0500, L3100.5440, L5500.0410, L3100.3425, L503.6150, L3300.0100, L3100.1850, L504.2610, L100.9950, L3300.1200, L100.0100, L501.9520, L300.3900, L3410.2400, L3200.1100, L3100.6900, L3400.0700, L503.6550, L3300.1800 ####[facility] [address] [place], [address] M-Jayme Not Observed Normal Not Observed [facility] Comment on above: Order Comment: Test( s) 417922-Dteznz, Serum or Plasmawas developed and its performance characteristicsdetermined by [employer]. It has not been cleared or approvedby the Food and Drug Administration.N Performed By: #### L 101.9900, L500.4050, L501.6710, L501.9985, L503.5510, L3200.0500, L3100.5440, L5500.0410, L3100.3425, L503.6150, L3300.0100, L3100.1850, L504.2610, L100.9950, L3300.1200, L100.0100, L501.9520, L300.3900, L3410.2400, L3200.1100, L3100.6900, L3400.0700, L503.6550, L3300.1800 ####[facility] [address] [facility] [place], [place], [id number] NOTE: Comment Normal . [facility] Comment on above: Order Comment: Test( s) 406126-Wquwzl, Serum or Plasmawas developed and its performance characteristicsdetermined by [employer]. It has not been cleared or approvedby the Food and Drug Administration.N Result Comment: Prot ein electrophoresis scan will follow via computer,mail, or railway signalling engineer delivery. Performed By: #### L 101.9900, L500.4050, L501.6710, L501.9985, L503.5510, L3200.0500, L3100.5440, L5500.0410, L3100.3425, L503.6150, L3300.0100, L3100.1850, L504.2610, L100.9950, L3300.1200, L100.0100, L501.9520, L300.3900, L3410.2400, L3200.1100, L3100.6900, L3400.0700, L503.6550, L3300.1800 ####[facility] [address] [facility] [place], [place], [phone] Protein [Mass/Vol] 6.9 g/dL Normal 6.0-8.5 [facility] Comment on above: Order Comment: Test( s) 568975-Xbftlz, Serum or Plasmawas developed and its performance characteristicsdetermined by [employer]. It has not been cleared or approvedby the Food and Drug Administration.N Performed By: #### L 101.9900, L500.4050, L501.6710, L501.9985, L503.5510, L3200.0500, L3100.5440, L5500.0410, L3100.3425, L503.6150, L3300.0100, L3100.1850, L504.2610, L100.9950, L3300.1200, L100.0100, L501.9520, L300.3900, L3410.2400, L3200.1100, L3100.6900, L3400.0700, L503.6550, L3300.1800 ####[facility] [address] [facility] [place], [place], [phone] IgG Subclasseson 08-10-2024 IgG, SUBCLASS 1 509 mg/dL Normal 248-810 [facility] Comment on above: Order Comment: Test( s) 843875-Xfnxbm, Serum or Plasmawas developed and its performance characteristicsdetermined by [employer]. It has not been cleared or approvedby the Food and Drug Administration. Performed By: #### L 101.9900, L500.4050, L501.6710, L501.9985, L503.5510, L3200.0500, L3100.5440, L5500.0410, L3100.3425, L503.6150, L3300.0100, L3100.1850, L504.2610, L100.9950, L3300.1200, L100.0100, L501.9520, L300.3900, L3410.2400, L3200.1100, L3100.6900, L3400.0700, L503.6550, L3300.1800 ####[facility] [address] [facility] [place], [place], [phone] IgG, SUBCLASS 2 168 mg/dL Normal 130-555 [facility] Comment on above: Order Comment: Test( s) 557919-Nryrdz, Serum or Plasmawas developed and its performance characteristicsdetermined by [employer]. It has not been cleared or approvedby the Food and Drug Administration. Performed By: #### L 101.9900, L500.4050, L501.6710, L501.9985, L503.5510, L3200.0500, L3100.5440, L5500.0410, L3100.3425, L503.6150, L3300.0100, L3100.1850, L504.2610, L100.9950, L3300.1200, L100.0100, L501.9520, L300.3900, L3410.2400, L3200.1100, L3100.6900, L3400.0700, L503.6550, L3300.1800 ####[facility] [address] [facility] [place], [place], [phone] IgG, SUBCLASS 3 73 mg/dL Normal 15-102 [facility] Comment on above: Order Comment: Test( s) 078290-Axmlbt, Serum or Plasmawas developed and its performance characteristicsdetermined by [employer]. It has not been cleared or approvedby the Food and Drug Administration. Performed By: #### L 101.9900, L500.4050, L501.6710, L501.9985, L503.5510, L3200.0500, L3100.5440, L5500.0410, L3100.3425, L503.6150, L3300.0100, L3100.1850, L504.2610, L100.9950, L3300.1200, L100.0100, L501.9520, L300.3900, L3410.2400, L3200.1100, L3100.6900, L3400.0700, L503.6550, L3300.1800 ####[facility] [address] [facility] [place], [place], [phone] IgG, SUBCLASS 4 17 mg/dL Normal 2-96 [facility] Comment on above: Order Comment: Test( s) 919794-Zvsqlj, Serum or Plasmawas developed and its performance characteristicsdetermined by [employer]. It has not been cleared or approvedby the Food and Drug Administration. Performed By: #### L 101.9900, L500.4050, L501.6710, L501.9985, L503.5510, L3200.0500, L3100.5440, L5500.0410, L3100.3425, L503.6150, L3300.0100, L3100.1850, L504.2610, L100.9950, L3300.1200, L100.0100, L501.9520, L300.3900, L3410.2400, L3200.1100, L3100.6900, L3400.0700, L503.6550, L3300.1800 ####[facility] [address] [facility] [place], [place], [phone] IGG,QUANT 945 mg/dL Normal 586-1602 [facility] Comment on above: Order Comment: Test( s) 241598-Tcqyaq, Serum or Plasmawas developed and its performance characteristicsdetermined by [employer]. It has not been cleared or approvedby the Food and Drug Administration. Performed By: #### L 101.9900, L500.4050, L501.6710, L501.9985, L503.5510, L3200.0500, L3100.5440, L5500.0410, L3100.3425, L503.6150, L3300.0100, L3100.1850, L504.2610, L100.9950, L3300.1200, L100.0100, L501.9520, L300.3900, L3410.2400, L3200.1100, L3100.6900, L3400.0700, L503.6550, L3300.1800 ####[facility] [address] [place], [place], [phone] Immunoglobulins G/A/M/Librado IMMUNOGLOB E QN 122 IU/mL Normal 6-495 [facility] Comment on above: Order Comment: Test( s) 422376-Iipfhb, Serum or Plasmawas developed and its performance characteristicsdetermined by [employer]. It has not been cleared or approvedby the Food and Drug Administration.N Performed By: #### L 101.9900, L500.4050, L501.6710, L501.9985, L503.5510, L3200.0500, L3100.5440, L5500.0410, L3100.3425, L503.6150, L3300.0100, L3100.1850, L504.2610, L100.9950, L3300.1200, L100.0100, L501.9520, L300.3900, L3410.2400, L3200.1100, L3100.6900, L3400.0700, L503.6550, L3300.1800 ####[facility] [address] [place], [address] Amylaseon 08-09-2024 TAWANNA 19 U/L Low 28-100 [facility] Comment on above: Order Comment: ADD O NTO YESTERDAYS BLOOD Performed By: #### L 501.2450, L501.2400 ####[facility] [address] [place], [address] CDIFF (PCR)on 08-09-2024 CDIFF Pending 027 027 NAP1-B1 Presumptive Negative *for epidemiolologic???use C. Diff PCR Negative- No toxigenic C. Diff Detected Normal [facility] Comment on above: Performed By: #### L 7000.0700, M100.6796, M100.0605, M100.637, L7400.3300, M600.5000 ####[facility] [address] [place], [place], [phone] Calprotectin stoolOrdered By : Bárbara Ureña on 08-09-2024 Calprotectin stool 13 ug/g 0-120 [facility] Clostridium difficile detect ion by polymerase chain reactionOrdered By: Bárbara Ureña on 08-09-2024 C. difficile DNA BIMAL+probe Ql (Unsp spec) [facility] ENTERIC PATHOGEN PANEL STOOL on 08-09-2024 EP PANEL Normal [facility] Comment on above: Performed By: #### L 7000.0700, M100.6796, M100.0605, M100.637, L7400.3300, M600.5000 ####[facility] [address] [place], [place], [phone] Giardia lamblia ag stool EIA Ordered By: Bárbara Ureña on 08-09-2024 G. lamblia Ag IA Ql (Stl) Negative Negative [facility] Lipaseon 08-09-2024 Lipase [Catalytic activity/Vol] 24 U/L Normal 13-75 [facility] Comment on above: Order Comment: ADD O NTO YESTERDAYS BLOOD Result Comment: Plea se note:LIPASE revised reference range effective 22.New Lipase methodology. Expected to produce lower valuesthan the previous assay method.NEW Reference Range: 13 - 75 U/L Performed By: #### L 501.2450, L501.2400 ####[facility] [address] [place], [place], [phone] Serum or plasma amylase leslie urement (enzymatic activity/volume)Ordered By: Quang Myles on 08-09-2024 Amylase [Catalytic activity/Vol] 19 U/L Low 28-100 [facility] Stool Lactoferrin/WBCon - WBCST Normal Reference Ran ge = Negative Fecal WBC Lactoferrin Negative: No Fecal WBC Lactoferrin present Normal [facility] Comment on above: Performed By: #### L 7000.0700, M100.6796, M100.0605, M100.637, L7400.3300, M600.5000 ####[facility] [id number] [place], [address] Stool lactoferrin detection by immunoassayOrdered By: Bárbara Ureña on 08-09-2024 Lactoferrin IA Ql (Stl) W [facility] Absolute lymphocyte countOrd ered By: Quang Myles on 08-08-2024 Lymphocytes Auto (Unsp spec) [#/Vol] 1.28 10*3/uL 0.83-4.51 [facility] Albumin Elph [Mass/Vol]Order ed By: Quang Myles on 08-08-2024 Albumin [Mass/Vol] 3.4 g/dL 2.9-4.4 [facility] Ammoniaon 08-08-2024 Ammonia (P) [Moles/Vol] 36.2 umol/L Normal [facility] Comment on above: Performed By: #### L 101.9900, L500.4050, L501.6710, L501.9985, L503.5510, L3200.0500, L3100.5440, L5500.0410, L3100.3425, L503.6150, L3300.0100, L3100.1850, L504.2610, L100.9950, L3300.1200, L100.0100, L501.9520, L300.3900, L3410.2400, L3200.1100, L3100.6900, L3400.0700, L503.6550, L3300.1800 ####[facility] [id number] [place], [place], [id number] Anion gap in Serum or Plasma Ordered By: Quang Myles on 08-08-2024 Anion gap [Moles/Vol] 11 mmol/L 5-15 [facility] Automated lymphocyte count a s percentage of total leukocytesOrdered By: Quang Myles on 08-08-2024 Lymphocytes/100 WBC Auto (Unsp spec) 13.9 % Low 19-41 [facility] BUN/creatinine ratioOrdered By: Quangyunior Myles on 08-08-2024 Urea nitrogen/Creatinine [Mass ratio] 12.1 mg/mg 10-20 [facility] Basophil percentageOrdered B y: Quang Myles on 08-08-2024 Basophils/100 WBC (Bld) 0.9 % 0-1 W [facility] Bilirubin, totalOrdered By: Quang Friend on 08-08-2024 Bilirubin [Mass/Vol] 0.23 mg/dL 0.00-1.30 [facility] CBC W/Diff, Automatedon 07-13 Absolute Lymph 1.28 X10 3/uL Normal 0.83-4.51 [facility] Comment on above: Performed By: #### L 101.9900, L500.4050, L501.6710, L501.9985, L503.5510, L3200.0500, L3100.5440, L5500.0410, L3100.3425, L503.6150, L3300.0100, L3100.1850, L504.2610, L100.9950, L3300.1200, L100.0100, L501.9520, L300.3900, L3410.2400, L3200.1100, L3100.6900, L3400.0700, L503.6550, L3300.1800 ####[facility] [address] [place], [place], [phone] Absolute Neut 7.0 X10 3/uL Normal 2.0-7.7 [facility] Comment on above: Performed By: #### L 101.9900, L500.4050, L501.6710, L501.9985, L503.5510, L3200.0500, L3100.5440, L5500.0410, L3100.3425, L503.6150, L3300.0100, L3100.1850, L504.2610, L100.9950, L3300.1200, L100.0100, L501.9520, L300.3900, L3410.2400, L3200.1100, L3100.6900, L3400.0700, L503.6550, L3300.1800 ####[facility] [address] [facility] [place], [place], [phone](977) Basophils/100 WBC (Bld) 0.9 % Normal 0-1 [facility] Comment on above: Performed By: #### L 101.9900, L500.4050, L501.6710, L501.9985, L503.5510, L3200.0500, L3100.5440, L5500.0410, L3100.3425, L503.6150, L3300.0100, L3100.1850, L504.2610, L100.9950, L3300.1200, L100.0100, L501.9520, L300.3900, L3410.2400, L3200.1100, L3100.6900, L3400.0700, L503.6550, L3300.1800 ####[facility] [address] [facility] [place], [place], [phone](685) Eosinophils/100 WBC (Bld) 3.8 % Normal 0-5 [facility] Comment on above: Performed By: #### L 101.9900, L500.4050, L501.6710, L501.9985, L503.5510, L3200.0500, L3100.5440, L5500.0410, L3100.3425, L503.6150, L3300.0100, L3100.1850, L504.2610, L100.9950, L3300.1200, L100.0100, L501.9520, L300.3900, L3410.2400, L3200.1100, L3100.6900, L3400.0700, L503.6550, L3300.1800 ####[facility] [address] [facility] [place], [place], [phone](799) Erythrocyte distribution width (RBC) [Ratio] 13.1 % Normal 11.6-14.6 [facility] Comment on above: Performed By: #### L 101.9900, L500.4050, L501.6710, L501.9985, L503.5510, L3200.0500, L3100.5440, L5500.0410, L3100.3425, L503.6150, L3300.0100, L3100.1850, L504.2610, L100.9950, L3300.1200, L100.0100, L501.9520, L300.3900, L3410.2400, L3200.1100, L3100.6900, L3400.0700, L503.6550, L3300.1800 ####[facility] [address] [place], [address] Hematocrit (Bld) [Volume fraction] 44.1 % Normal 37-47 [facility] Comment on above: Performed By: #### L 101.9900, L500.4050, L501.6710, L501.9985, L503.5510, L3200.0500, L3100.5440, L5500.0410, L3100.3425, L503.6150, L3300.0100, L3100.1850, L504.2610, L100.9950, L3300.1200, L100.0100, L501.9520, L300.3900, L3410.2400, L3200.1100, L3100.6900, L3400.0700, L503.6550, L3300.1800 ####[facility] [address] [place], [address] Hemoglobin (Bld) [Mass/Vol] 14.7 g/dL Normal 12.0-15.0 [facility] Comment on above: Performed By: #### L 101.9900, L500.4050, L501.6710, L501.9985, L503.5510, L3200.0500, L3100.5440, L5500.0410, L3100.3425, L503.6150, L3300.0100, L3100.1850, L504.2610, L100.9950, L3300.1200, L100.0100, L501.9520, L300.3900, L3410.2400, L3200.1100, L3100.6900, L3400.0700, L503.6550, L3300.1800 ####[facility] [address] [place], [address] IG% 0.500 Normal 0.0-0.9 [facility] Comment on above: Result Comment: IG% - Immature Granulocytes (promyelocytes, myelocytes andmetamyelocytes) > 1% indicates that a LEFT SHIFT is Present. Performed By: #### L 101.9900, L500.4050, L501.6710, L501.9985, L503.5510, L3200.0500, L3100.5440, L5500.0410, L3100.3425, L503.6150, L3300.0100, L3100.1850, L504.2610, L100.9950, L3300.1200, L100.0100, L501.9520, L300.3900, L3410.2400, L3200.1100, L3100.6900, L3400.0700, L503.6550, L3300.1800 ####[facility] [address] [facility] [place], [place], [phone] Lymphocytes/100 WBC (Bld) 13.9 % Low 19-41 [facility] Comment on above: Performed By: #### L 101.9900, L500.4050, L501.6710, L501.9985, L503.5510, L3200.0500, L3100.5440, L5500.0410, L3100.3425, L503.6150, L3300.0100, L3100.1850, L504.2610, L100.9950, L3300.1200, L100.0100, L501.9520, L300.3900, L3410.2400, L3200.1100, L3100.6900, L3400.0700, L503.6550, L3300.1800 ####[facility] [address] [place], [place], [phone] MCH (RBC) [Entitic mass] 32.0 pg Normal 27.0-32.0 [facility] Comment on above: Performed By: #### L 101.9900, L500.4050, L501.6710, L501.9985, L503.5510, L3200.0500, L3100.5440, L5500.0410, L3100.3425, L503.6150, L3300.0100, L3100.1850, L504.2610, L100.9950, L3300.1200, L100.0100, L501.9520, L300.3900, L3410.2400, L3200.1100, L3100.6900, L3400.0700, L503.6550, L3300.1800 ####[facility] [address] [facility] [address]. [place], [place], [phone] MCHC (RBC) [Mass/Vol] 33.3 g/dL Normal 32-36 [facility] Comment on above: Performed By: #### L 101.9900, L500.4050, L501.6710, L501.9985, L503.5510, L3200.0500, L3100.5440, L5500.0410, L3100.3425, L503.6150, L3300.0100, L3100.1850, L504.2610, L100.9950, L3300.1200, L100.0100, L501.9520, L300.3900, L3410.2400, L3200.1100, L3100.6900, L3400.0700, L503.6550, L3300.1800 ####[facility] [address] [facility] [place], [address] MCV (RBC) [Entitic vol] 95.9 fL Normal 81-99 [facility] Comment on above: Performed By: #### L 101.9900, L500.4050, L501.6710, L501.9985, L503.5510, L3200.0500, L3100.5440, L5500.0410, L3100.3425, L503.6150, L3300.0100, L3100.1850, L504.2610, L100.9950, L3300.1200, L100.0100, L501.9520, L300.3900, L3410.2400, L3200.1100, L3100.6900, L3400.0700, L503.6550, L3300.1800 ####[facility] [address] [facility] [place], [place], [phone](823) Monocytes/100 WBC (Bld) 5.4 % Normal 0-10 [facility] Comment on above: Performed By: #### L 101.9900, L500.4050, L501.6710, L501.9985, L503.5510, L3200.0500, L3100.5440, L5500.0410, L3100.3425, L503.6150, L3300.0100, L3100.1850, L504.2610, L100.9950, L3300.1200, L100.0100, L501.9520, L300.3900, L3410.2400, L3200.1100, L3100.6900, L3400.0700, L503.6550, L3300.1800 ####[facility] [address] [place], [place], [phone](775) Neutrophils/100 WBC (Bld) 75.5 % High 47-70 [facility] Comment on above: Performed By: #### L 101.9900, L500.4050, L501.6710, L501.9985, L503.5510, L3200.0500, L3100.5440, L5500.0410, L3100.3425, L503.6150, L3300.0100, L3100.1850, L504.2610, L100.9950, L3300.1200, L100.0100, L501.9520, L300.3900, L3410.2400, L3200.1100, L3100.6900, L3400.0700, L503.6550, L3300.1800 ####[facility] [address] [place], [place], [phone](588) Nucleated RBC (Bld) [#/Vol] 0 10*3/uL Normal 0-5 [facility] Comment on above: Performed By: #### L 101.9900, L500.4050, L501.6710, L501.9985, L503.5510, L3200.0500, L3100.5440, L5500.0410, L3100.3425, L503.6150, L3300.0100, L3100.1850, L504.2610, L100.9950, L3300.1200, L100.0100, L501.9520, L300.3900, L3410.2400, L3200.1100, L3100.6900, L3400.0700, L503.6550, L3300.1800 ####[facility] [address] [place], [address](561) Platelet mean volume (Bld) [Entitic vol] 9.9 fL Normal 6.2-12.0 [facility] Comment on above: Performed By: #### L 101.9900, L500.4050, L501.6710, L501.9985, L503.5510, L3200.0500, L3100.5440, L5500.0410, L3100.3425, L503.6150, L3300.0100, L3100.1850, L504.2610, L100.9950, L3300.1200, L100.0100, L501.9520, L300.3900, L3410.2400, L3200.1100, L3100.6900, L3400.0700, L503.6550, L3300.1800 ####[facility] [address] [place], [phone](012) Platelets (Bld) [#/Vol] 375 10*3/uL Normal 150-450 [facility] Comment on above: Performed By: #### L 101.9900, L500.4050, L501.6710, L501.9985, L503.5510, L3200.0500, L3100.5440, L5500.0410, L3100.3425, L503.6150, L3300.0100, L3100.1850, L504.2610, L100.9950, L3300.1200, L100.0100, L501.9520, L300.3900, L3410.2400, L3200.1100, L3100.6900, L3400.0700, L503.6550, L3300.1800 ####[facility] [address] [place], [place], [phone] RBC (Bld) [#/Vol] 4.60 10*6/uL Normal 4.2-5.4 [facility] Comment on above: Performed By: #### L 101.9900, L500.4050, L501.6710, L501.9985, L503.5510, L3200.0500, L3100.5440, L5500.0410, L3100.3425, L503.6150, L3300.0100, L3100.1850, L504.2610, L100.9950, L3300.1200, L100.0100, L501.9520, L300.3900, L3410.2400, L3200.1100, L3100.6900, L3400.0700, L503.6550, L3300.1800 ####[facility] [address] [place], [address] RDW SD 46.1 fl High 35.1-43.9 [facility] Comment on above: Performed By: #### L 101.9900, L500.4050, L501.6710, L501.9985, L503.5510, L3200.0500, L3100.5440, L5500.0410, L3100.3425, L503.6150, L3300.0100, L3100.1850, L504.2610, L100.9950, L3300.1200, L100.0100, L501.9520, L300.3900, L3410.2400, L3200.1100, L3100.6900, L3400.0700, L503.6550, L3300.1800 ####[facility] [address]vi[address] [facility] [place], [place], [phone] WBC (Bld) [#/Vol] 9.2 10*3/uL Normal 4.4-11.0 [facility] Comment on above: Performed By: #### L 101.9900, L500.4050, L501.6710, L501.9985, L503.5510, L3200.0500, L3100.5440, L5500.0410, L3100.3425, L503.6150, L3300.0100, L3100.1850, L504.2610, L100.9950, L3300.1200, L100.0100, L501.9520, L300.3900, L3410.2400, L3200.1100, L3100.6900, L3400.0700, L503.6550, L3300.1800 ####[facility] [address] [facility] [place], [place], [phone] CRPon 08-08-2024 C-REACTIVE PROT 16.80 mg/L High 0.0-3.0 [facility] Comment on above: Performed By: #### L 101.9900, L500.4050, L501.6710, L501.9985, L503.5510, L3200.0500, L3100.5440, L5500.0410, L3100.3425, L503.6150, L3300.0100, L3100.1850, L504.2610, L100.9950, L3300.1200, L100.0100, L501.9520, L300.3900, L3410.2400, L3200.1100, L3100.6900, L3400.0700, L503.6550, L3300.1800 ####[facility] [address] [place], [address] Carbon dioxide, total [Moles /volume] in Central venous bloodOrdered By: Quang Myles on 08-08-2024 CO2 [Moles/Vol] 21.1 mmol/L 21.0-32.0 [facility] Chloride assayOrdered By: Ra treva Myles on 08-08-2024 Chloride [Moles/Vol] 106 mmol/L 98-108 [facility] Comprehensive Metabolic Prof ilon 08-08-2024 Albumin [Mass/Vol] 3.9 g/dL Normal 3.5-5.0 [facility] Comment on above: Performed By: #### L 101.9900, L500.4050, L501.6710, L501.9985, L503.5510, L3200.0500, L3100.5440, L5500.0410, L3100.3425, L503.6150, L3300.0100, L3100.1850, L504.2610, L100.9950, L3300.1200, L100.0100, L501.9520, L300.3900, L3410.2400, L3200.1100, L3100.6900, L3400.0700, L503.6550, L3300.1800 ####[facility] [address] [place], [address] Albumin/Globulin [Mass ratio] 1.1 {ratio} Normal 0.9-2.4 [facility] Comment on above: Performed By: #### L 101.9900, L500.4050, L501.6710, L501.9985, L503.5510, L3200.0500, L3100.5440, L5500.0410, L3100.3425, L503.6150, L3300.0100, L3100.1850, L504.2610, L100.9950, L3300.1200, L100.0100, L501.9520, L300.3900, L3410.2400, L3200.1100, L3100.6900, L3400.0700, L503.6550, L3300.1800 ####[facility] [address] [place], [address] ALK PHOS 155 U/L High 35-104 [facility] Comment on above: Performed By: #### L 101.9900, L500.4050, L501.6710, L501.9985, L503.5510, L3200.0500, L3100.5440, L5500.0410, L3100.3425, L503.6150, L3300.0100, L3100.1850, L504.2610, L100.9950, L3300.1200, L100.0100, L501.9520, L300.3900, L3410.2400, L3200.1100, L3100.6900, L3400.0700, L503.6550, L3300.1800 ####[facility] [address] [place], [address] ALT [Catalytic activity/Vol] 37 U/L High <=34 [facility] Comment on above: Performed By: #### L 101.9900, L500.4050, L501.6710, L501.9985, L503.5510, L3200.0500, L3100.5440, L5500.0410, L3100.3425, L503.6150, L3300.0100, L3100.1850, L504.2610, L100.9950, L3300.1200, L100.0100, L501.9520, L300.3900, L3410.2400, L3200.1100, L3100.6900, L3400.0700, L503.6550, L3300.1800 ####[facility] [address]lbef[address] [facility] [place], [address] AST [Catalytic activity/Vol] 43 U/L High <=31 [facility] Comment on above: Performed By: #### L 101.9900, L500.4050, L501.6710, L501.9985, L503.5510, L3200.0500, L3100.5440, L5500.0410, L3100.3425, L503.6150, L3300.0100, L3100.1850, L504.2610, L100.9950, L3300.1200, L100.0100, L501.9520, L300.3900, L3410.2400, L3200.1100, L3100.6900, L3400.0700, L503.6550, L3300.1800 ####[facility] [address] [place], [place], [phone] Bilirubin [Mass/Vol] 0.23 mg/dL Normal 0.00-1.30 [facility] Comment on above: Performed By: #### L 101.9900, L500.4050, L501.6710, L501.9985, L503.5510, L3200.0500, L3100.5440, L5500.0410, L3100.3425, L503.6150, L3300.0100, L3100.1850, L504.2610, L100.9950, L3300.1200, L100.0100, L501.9520, L300.3900, L3410.2400, L3200.1100, L3100.6900, L3400.0700, L503.6550, L3300.1800 ####[facility] [address] [place], [place], [phone] BUN/CRE 12.1 RATIO Normal 10-20 [facility] Comment on above: Performed By: #### L 101.9900, L500.4050, L501.6710, L501.9985, L503.5510, L3200.0500, L3100.5440, L5500.0410, L3100.3425, L503.6150, L3300.0100, L3100.1850, L504.2610, L100.9950, L3300.1200, L100.0100, L501.9520, L300.3900, L3410.2400, L3200.1100, L3100.6900, L3400.0700, L503.6550, L3300.1800 ####[facility] [address] [place], [place], [phone](125) Calcium [Mass/Vol] 9.7 mg/dL Normal 7.6-11.0 [facility] Comment on above: Performed By: #### L 101.9900, L500.4050, L501.6710, L501.9985, L503.5510, L3200.0500, L3100.5440, L5500.0410, L3100.3425, L503.6150, L3300.0100, L3100.1850, L504.2610, L100.9950, L3300.1200, L100.0100, L501.9520, L300.3900, L3410.2400, L3200.1100, L3100.6900, L3400.0700, L503.6550, L3300.1800 ####[facility] [address] [place], [place], [phone](141) Chloride [Moles/Vol] 106 mmol/L Normal 98-108 [facility] Comment on above: Performed By: #### L 101.9900, L500.4050, L501.6710, L501.9985, L503.5510, L3200.0500, L3100.5440, L5500.0410, L3100.3425, L503.6150, L3300.0100, L3100.1850, L504.2610, L100.9950, L3300.1200, L100.0100, L501.9520, L300.3900, L3410.2400, L3200.1100, L3100.6900, L3400.0700, L503.6550, L3300.1800 ####[facility] [address] [place], [place], [phone](476) CO2 [Moles/Vol] 21.1 mmol/L Normal 21.0-32.0 [facility] Comment on above: Performed By: #### L 101.9900, L500.4050, L501.6710, L501.9985, L503.5510, L3200.0500, L3100.5440, L5500.0410, L3100.3425, L503.6150, L3300.0100, L3100.1850, L504.2610, L100.9950, L3300.1200, L100.0100, L501.9520, L300.3900, L3410.2400, L3200.1100, L3100.6900, L3400.0700, L503.6550, L3300.1800 ####[facility] [address] [place], [address] Creatinine [Mass/Vol] 0.71 mg/dL Normal 0.70-1.20 [facility] Comment on above: Performed By: #### L 101.9900, L500.4050, L501.6710, L501.9985, L503.5510, L3200.0500, L3100.5440, L5500.0410, L3100.3425, L503.6150, L3300.0100, L3100.1850, L504.2610, L100.9950, L3300.1200, L100.0100, L501.9520, L300.3900, L3410.2400, L3200.1100, L3100.6900, L3400.0700, L503.6550, L3300.1800 ####[facility] [address] [facility]. [place], [place], [phone] GAP 11 Normal 5-15 [facility] Comment on above: Performed By: #### L 101.9900, L500.4050, L501.6710, L501.9985, L503.5510, L3200.0500, L3100.5440, L5500.0410, L3100.3425, L503.6150, L3300.0100, L3100.1850, L504.2610, L100.9950, L3300.1200, L100.0100, L501.9520, L300.3900, L3410.2400, L3200.1100, L3100.6900, L3400.0700, L503.6550, L3300.1800 ####[facility] [address] [facility] [place], [place], [phone] GFR/1.73 sq M.predicted among non-blacks MDRD (S/P/Bld) [Vol rate/Area] 107 mL/min/{1.73_m2} Normal >60 [facility] Comment on above: Result Comment: mL/m in/1.73m2 CKD-EPI Creatinine Equation (2020) Performed By: #### L 101.9900, L500.4050, L501.6710, L501.9985, L503.5510, L3200.0500, L3100.5440, L5500.0410, L3100.3425, L503.6150, L3300.0100, L3100.1850, L504.2610, L100.9950, L3300.1200, L100.0100, L501.9520, L300.3900, L3410.2400, L3200.1100, L3100.6900, L3400.0700, L503.6550, L3300.1800 ####[facility] [address] [facility] [place], [place], [phone] Globulin (S) [Mass/Vol] 3.4 g/dL Normal 2.2-4.2 [facility] Comment on above: Performed By: #### L 101.9900, L500.4050, L501.6710, L501.9985, L503.5510, L3200.0500, L3100.5440, L5500.0410, L3100.3425, L503.6150, L3300.0100, L3100.1850, L504.2610, L100.9950, L3300.1200, L100.0100, L501.9520, L300.3900, L3410.2400, L3200.1100, L3100.6900, L3400.0700, L503.6550, L3300.1800 ####[facility] [address] [place], [address] Glucose [Mass/Vol] 93 mg/dL Normal 70-99 [facility] Comment on above: Performed By: #### L 101.9900, L500.4050, L501.6710, L501.9985, L503.5510, L3200.0500, L3100.5440, L5500.0410, L3100.3425, L503.6150, L3300.0100, L3100.1850, L504.2610, L100.9950, L3300.1200, L100.0100, L501.9520, L300.3900, L3410.2400, L3200.1100, L3100.6900, L3400.0700, L503.6550, L3300.1800 ####[facility] [address] [place], [address] Potassium [Moles/Vol] 4.2 mmol/L Normal 3.3-5.1 [facility] Comment on above: Performed By: #### L 101.9900, L500.4050, L501.6710, L501.9985, L503.5510, L3200.0500, L3100.5440, L5500.0410, L3100.3425, L503.6150, L3300.0100, L3100.1850, L504.2610, L100.9950, L3300.1200, L100.0100, L501.9520, L300.3900, L3410.2400, L3200.1100, L3100.6900, L3400.0700, L503.6550, L3300.1800 ####[facility] [address] [place], [address] Sodium [Moles/Vol] 138 mmol/L Normal 133-145 [facility] Comment on above: Performed By: #### L 101.9900, L500.4050, L501.6710, L501.9985, L503.5510, L3200.0500, L3100.5440, L5500.0410, L3100.3425, L503.6150, L3300.0100, L3100.1850, L504.2610, L100.9950, L3300.1200, L100.0100, L501.9520, L300.3900, L3410.2400, L3200.1100, L3100.6900, L3400.0700, L503.6550, L3300.1800 ####[facility] [address] [place], [place], [id number] T PROT 7.3 g/dL Normal 5.9-8.4 [facility] Comment on above: Performed By: #### L 101.9900, L500.4050, L501.6710, L501.9985, L503.5510, L3200.0500, L3100.5440, L5500.0410, L3100.3425, L503.6150, L3300.0100, L3100.1850, L504.2610, L100.9950, L3300.1200, L100.0100, L501.9520, L300.3900, L3410.2400, L3200.1100, L3100.6900, L3400.0700, L503.6550, L3300.1800 ####[facility] [address] [place], [place], [id number] Urea nitrogen [Mass/Vol] 9 mg/dL Normal 4-19 [facility] Comment on above: Performed By: #### L 101.9900, L500.4050, L501.6710, L501.9985, L503.5510, L3200.0500, L3100.5440, L5500.0410, L3100.3425, L503.6150, L3300.0100, L3100.1850, L504.2610, L100.9950, L3300.1200, L100.0100, L501.9520, L300.3900, L3410.2400, L3200.1100, L3100.6900, L3400.0700, L503.6550, L3300.1800 ####[facility] [address] [place], [place], [phone] Eosinophil percentageOrdered By: Quang Friend on 08-08-2024 Eosinophils/100 WBC (Bld) 3.8 % 0-5 [facility] Erythrocyte Sed Rateon 08-08 SED RATE 69 mm/hr High 0-30 [facility] Comment on above: Performed By: #### L 101.9900, L500.4050, L501.6710, L501.9985, L503.5510, L3200.0500, L3100.5440, L5500.0410, L3100.3425, L503.6150, L3300.0100, L3100.1850, L504.2610, L100.9950, L3300.1200, L100.0100, L501.9520, L300.3900, L3410.2400, L3200.1100, L3100.6900, L3400.0700, L503.6550, L3300.1800 ####[facility] [address] [place], [place], [id number] Erythrocyte distribution wid th ratioOrdered By: Quang Myles on 08-08-2024 Erythrocyte distribution width (RBC) [Ratio] 13.1 % 11.6-14.6 [facility] Erythrocyte distribution wid th standard deviationOrdered By: Quang Friend on 08-08-2024 Erythrocyte distribution width (RBC) [Ratio] 46.1 fl High 35.1-43.9 [facility] Erythrocyte sedimentation ra teOrdered By: Quang Myles on 08-08-2024 ESR (Bld) [Velocity] 69 mm/h High 0-30 [facility] Ferritinon 08-08-2024 Ferritin [Mass/Vol] 216 ng/mL Normal 22-378 [facility] Comment on above: Performed By: #### L 101.9900, L500.4050, L501.6710, L501.9985, L503.5510, L3200.0500, L3100.5440, L5500.0410, L3100.3425, L503.6150, L3300.0100, L3100.1850, L504.2610, L100.9950, L3300.1200, L100.0100, L501.9520, L300.3900, L3410.2400, L3200.1100, L3100.6900, L3400.0700, L503.6550, L3300.1800 ####[facility] [address] [place], [address] Gastrin, serumOrdered By: Ra treva Myles on 08-08-2024 Gastrin [Mass/Vol] 17 pg/mL 0-115 [facility] Gastroenterology Visit Repor ton 08-08-2024 Gastroenterology Visit Report Normal [facility] Glomerular filtration rate ( GFR) estimation/1.73 sq m using serum, plasma, or whole bOrdered By: Quang Myles on 08-08-2024 GFR/1.73 sq M.predicted among non-blacks MDRD (S/P/Bld) [Vol rate/Area] 107 mL/min/{1.73_m2} >60 [facility] Hematocrit Auto (Bld) [Volum e fraction]Ordered By: Quang Mlyes on 08-08-2024 Hematocrit (Bld) [Volume fraction] 44.1 % 37-47 [facility] Hemoglobin A1con 08-08-2024 HbA1c (Bld) [Mass fraction] 6.0 % High <=5.6 [facility] Comment on above: Result Comment: Norm al < 5.7 % Prediabetic 5.7 - 6.4 % Diabetic >or= 6.5 % Please note range changes. Performed By: #### L 101.9900, L500.4050, L501.6710, L501.9985, L503.5510, L3200.0500, L3100.5440, L5500.0410, L3100.3425, L503.6150, L3300.0100, L3100.1850, L504.2610, L100.9950, L3300.1200, L100.0100, L501.9520, L300.3900, L3410.2400, L3200.1100, L3100.6900, L3400.0700, L503.6550, L3300.1800 ####[facility] [address] [place], [address] Hemoglobin A1c percentageOrd ered By: Quang Myles on 08-08-2024 HbA1c (Bld) [Mass fraction] 6.0 % High <5.7 [facility] Hemoglobin measurementOrdere d By: Quang Myles on 08-08-2024 Hemoglobin (Bld) [Mass/Vol] 14.7 g/dL 12.0-15.0 [facility] IgEOrdered By: Quang arciniega on 08-08-2024 IgE 122 IU/mL 6-495 [facility] Immature granulocytes/100 WB C Auto (Bld)Ordered By: Quang Myles on 08-08-2024 Immature granulocytes/100 WBC (Bld) 0.500 % 0.0-0.9 [facility] Interpretation of serum or p lasma protein pattern by immunofixation (narrative resultOrdered By: Quang Myles on 08-08-2024 Protein Fractions Immunofixation David [Interp] Not Observed g/dL Not Observed [facility] Ironon 08-08-2024 Iron [Mass/Vol] 75 ug/dL Normal 50-170 [facility] Comment on above: Performed By: #### L 101.9900, L500.4050, L501.6710, L501.9985, L503.5510, L3200.0500, L3100.5440, L5500.0410, L3100.3425, L503.6150, L3300.0100, L3100.1850, L504.2610, L100.9950, L3300.1200, L100.0100, L501.9520, L300.3900, L3410.2400, L3200.1100, L3100.6900, L3400.0700, L503.6550, L3300.1800 ####[facility] [address] [facility] [place], [place], [address] Iron measurement (mass/mass) Ordered By: Quang Myles on 08-08-2024 Iron (Unsp spec) [Mass/Mass] 75 ug/dL 50-170 [facility] LDHon 08-08-2024 LDH 258 U/L High 84-246 [facility] Comment on above: Order Comment: 1 Performed By: #### L 101.9900, L500.4050, L501.6710, L501.9985, L503.5510, L3200.0500, L3100.5440, L5500.0410, L3100.3425, L503.6150, L3300.0100, L3100.1850, L504.2610, L100.9950, L3300.1200, L100.0100, L501.9520, L300.3900, L3410.2400, L3200.1100, L3100.6900, L3400.0700, L503.6550, L3300.1800 ####[facility] [address] [place], [place], [phone] Laboratory - Miscellaneous t estsOrdered By: Quang Myles on 08-08-2024 Service comment (Unsp spec) [Interp] Comment . [facility] MCV (mean corpuscular volume ) determinationOrdered By: Quang Myles on 08-08-2024 MCV (RBC) [Entitic vol] 95.9 fL 81-99 W [facility] Mean corpuscular hemoglobin (MCH) determinationOrdered By: Quang Myles on 08-08-2024 MCH (RBC) [Entitic mass] 32.0 pg 27.0-32.0 [facility] Monocyte percentageOrdered B y: Quang Myles on 08-08-2024 Monocytes/100 WBC (Bld) 5.4 % 0-10 W [facility] Neutrophil percentageOrdered By: Quang Myles on 08-08-2024 Neutrophils/100 WBC (Bld) 75.5 % High 47-70 [facility] No Panel InformationOrdered By: Quang Myles on 08-08-2024 Addendum Document Comment . [facility] 43 U/L High <32 [facility] Platelet countOrdered By: Ra treva Myles on 08-08-2024 Platelets (Bld) [#/Vol] 375 10*3/uL 150-450 [facility] Potassium measurement (mass/ volume)Ordered By: Quang Myles on 08-08-2024 Potassium (Unsp spec) [Mass/Vol] 4.2 mmol/L 3.3-5.1 [facility] Prothrombin Time w/INRon INR Coag (PPP) [Relative time] 1.0 {INR} Normal [facility] Comment on above: Performed By: #### L 101.9900, L500.4050, L501.6710, L501.9985, L503.5510, L3200.0500, L3100.5440, L5500.0410, L3100.3425, L503.6150, L3300.0100, L3100.1850, L504.2610, L100.9950, L3300.1200, L100.0100, L501.9520, L300.3900, L3410.2400, L3200.1100, L3100.6900, L3400.0700, L503.6550, L3300.1800 ####[facility] [address] [place], [place], [phone] PT Coag (PPP) [Time] 12.8 s Normal 11.7-14.9 [facility] Comment on above: Performed By: #### L 101.9900, L500.4050, L501.6710, L501.9985, L503.5510, L3200.0500, L3100.5440, L5500.0410, L3100.3425, L503.6150, L3300.0100, L3100.1850, L504.2610, L100.9950, L3300.1200, L100.0100, L501.9520, L300.3900, L3410.2400, L3200.1100, L3100.6900, L3400.0700, L503.6550, L3300.1800 ####[facility] [address] [place], [place], [phone] Prothrombin timeOrdered By: Quang Myles on 08-08-2024 PT Coag (PPP) [Time] 12.8 s 11.7-14.9 [facility] RBC Auto (Bld) [#/Vol]Ordere d By: Quang Myles on 08-08-2024 RBC (Bld) [#/Vol] 4.60 10*6/uL 4.2-5.4 [facility] Retic Panelon 08-08-2024 IM RET FRACTION 14.30 Normal 3.00-15.90 [facility] Comment on above: Performed By: #### L 101.9900, L500.4050, L501.6710, L501.9985, L503.5510, L3200.0500, L3100.5440, L5500.0410, L3100.3425, L503.6150, L3300.0100, L3100.1850, L504.2610, L100.9950, L3300.1200, L100.0100, L501.9520, L300.3900, L3410.2400, L3200.1100, L3100.6900, L3400.0700, L503.6550, L3300.1800 ####[facility] [address] [place], [place], [phone] RET-HE 34.4 pg Normal 30-35 [facility] Comment on above: Performed By: #### L 101.9900, L500.4050, L501.6710, L501.9985, L503.5510, L3200.0500, L3100.5440, L5500.0410, L3100.3425, L503.6150, L3300.0100, L3100.1850, L504.2610, L100.9950, L3300.1200, L100.0100, L501.9520, L300.3900, L3410.2400, L3200.1100, L3100.6900, L3400.0700, L503.6550, L3300.1800 ####[facility] [address] [place], [place], [phone] Retic Count 0.78 Normal 0.5-1.5 [facility] Comment on above: Performed By: #### L 101.9900, L500.4050, L501.6710, L501.9985, L503.5510, L3200.0500, L3100.5440, L5500.0410, L3100.3425, L503.6150, L3300.0100, L3100.1850, L504.2610, L100.9950, L3300.1200, L100.0100, L501.9520, L300.3900, L3410.2400, L3200.1100, L3100.6900, L3400.0700, L503.6550, L3300.1800 ####[facility] [address] [place], [place], [phone] Reticulocyte hemoglobin equi valent (RET-He) measurementOrdered By: Quang Myles on 08-08-2024 Hemoglobin (Reticulocytes) [Entitic mass] 34.4 pg 30-35 [facility] Reticulocytes Auto (Bld) [#/ Vol]Ordered By: Quang Myles on 08-08-2024 Reticulocytes/100 RBC (Bld) 0.78 % 0.5-1.5 [facility] Serum DNA double strand anti body assay (units/volume)Ordered By: Quang Myles on 08-08-2024 DNA double strand Ab Qn (S) [IU]/mL 0-9 [facility] Serum IgG subclass 1 measure ment (mass/volume)Ordered By: Quang Myles on 08-08-2024 IgG subclass 1 (S) [Mass/Vol] 509 mg/dL 248-810 [facility] Serum IgG subclass 2 measure ment (mass/volume)Ordered By: Quang Myles on 08-08-2024 IgG subclass 2 (S) [Mass/Vol] 168 mg/dL 130-555 [facility] Serum IgG subclass 3 measure ment (mass/volume)Ordered By: Quang Myles on 08-08-2024 IgG subclass 3 (S) [Mass/Vol] 73 mg/dL 15-102 [facility] Serum Scl-70 antibody assay (units/volume)Ordered By: Quang Myles on 08-08-2024 SCL-70 extractable nuclear Ab Qn (S) TNP [facility] SCL-70 extractable nuclear Ab Qn (S) <0.2 AI 0.0-0.9 [facility] Serum black walnut IgE antib eliecer assay (units/volume)Ordered By: Quang Myles on 08-08-2024 [place] IgE Qn (S) <0.10 kU/L Class 0 W [facility] Serum clam IgE antibody assa y (units/volume)Ordered By: Quang Myles on 08-08-2024 Clam IgE Qn (S) <0.10 kU/L Class 0 [facility] Serum classic neutrophil cyt oplasmic antibody assay (units/volume)Ordered By: Quang Myles on 08-08-2024 Neutrophil cytoplasmic Ab.classic Qn (S) <1:20 titer Neg:<1:20 [facility] Serum codfish IgE antibody a ssay (units/volume)Ordered By: Quang Myles on 08-08-2024 Codfish IgE Qn (S) <0.10 kU/L Class 0 [facility] Serum corn IgE antibody assa y (units/volume)Ordered By: Quang Myles on 08-08-2024 [place] IgE Qn (S) <0.10 kU/L Class 0 [facility] Serum cow milk IgE antibody assay (units/volume)Ordered By: Quang Myles on 08-08-2024 Cow milk IgE Qn (S) 0.24 kU/L High Class 0/I [facility] Serum creatinine measurement (mass/volume)Ordered By: Quang Myles on 08-08-2024 Creatinine [Mass/Vol] 0.71 mg/dL 0.70-1.20 [facility] Serum egg white IgE antibody assay (units/volume)Ordered By: Quang Myles on 08-08-2024 Egg white IgE Qn (S) <0.10 kU/L Class 0 [facility] Serum globulin measurement ( mass/volume)Ordered By: Quang Myles on 08-08-2024 Globulin (S) [Mass/Vol] 3.5 g/dL 2.2-3.9 W [facility] Serum glucose measurement (m ass/volume)Ordered By: Quang Myles on 08-08-2024 Glucose [Mass/Vol] 93 mg/dL 70-99 [facility] Serum or plasma C reactive p rotein measurement (mass/volume)Ordered By: Quang Myles on 08-08-2024 CRP [Mass/Vol] 16.80 mg/L High 0.0-3.0 [facility] Serum or plasma IgA measurem ent (mass/volume)Ordered By: Quang Myles on 08-08-2024 IgA [Mass/Vol] 134 mg/dL 87-352 [facility] Serum or plasma IgG measurem ent (mass/volume)Ordered By: Quang Myles on 08-08-2024 IgG [Mass/Vol] 945 mg/dL 586-1602 [facility] IgG [Mass/Vol] Not Reportable [facility] Serum or plasma alanine hair otransferase (ALT) measurementOrdered By: Quang Myles on 08-08-2024 ALT [Catalytic activity/Vol] 37 U/L High <35 [facility] Serum or plasma albumin leslie urement (mass/volume)Ordered By: Quang Myles on 08-08-2024 Albumin [Mass/Vol] 3.9 g/dL 3.5-5.0 [facility] Serum or plasma albumin/glob ulin mass ratioOrdered By: Quang Myles on 08-08-2024 Albumin/Globulin [Mass ratio] 1.1 {ratio} 0.9-2.4 [facility] Serum or plasma alkaline delfin sphatase measurementOrdered By: Quang Myles on 08-08-2024 ALP [Catalytic activity/Vol] 155 U/L High 35-104 [facility] Serum or plasma alpha 1 glob ulin measurement by electrophoresis (mass/volume)Ordered By: Quang Myles on 08-08-2024 Alpha 1 globulin Elph [Mass/Vol] 0.2 g/dL 0.0-0.4 [facility] Alpha 1 globulin Elph [Mass/Vol] 1.1 g/dL High 0.4-1.0 [facility] Serum or plasma angiotensin converting enzyme measurement (enzymatic activity/volume)Ordered By: Quang Myles on 08-08-2024 Angiotensin converting enzyme [Catalytic activity/Vol] 62 U/L 14-82 [facility] Serum or plasma beta globuli n measurement by electrophoresis (mass/volume)Ordered By: Quang Myles on 08-08-2024 Beta globulin Elph [Mass/Vol] 1.2 g/dL 0.7-1.3 [facility] Serum or plasma calcium leslie urement (mass/volume)Ordered By: Quang Myles on 08-08-2024 Calcium [Mass/Vol] 9.7 mg/dL 7.6-11.0 [facility] Serum or plasma ferritin janet surement (mass/volume)Ordered By: Quang Myles on 08-08-2024 Ferritin [Mass/Vol] 216 ng/mL 22-378 [facility] Serum or plasma gamma globul in measurement by electrophoresis (mass/volume)Ordered By: Quang Myles on 08-08-2024 Gamma globulin Elph [Mass/Vol] 1.0 g/dL 0.4-1.8 [facility] Serum or plasma immunoelectr ophoresis interpretation (nominal result)Ordered By: Quang Myles on 08-08-2024 Interpretation IEP [Interp] Comment . [facility] Serum or plasma protein leslie urement (mass/volume)Ordered By: Quang Myles on 08-08-2024 Protein [Mass/Vol] 6.9 g/dL 6.0-8.5 [facility] Serum or plasma urea nitroge n measurement (mass/volume)Ordered By: Quang Myles on 08-08-2024 Urea nitrogen [Mass/Vol] 9 mg/dL 4-19 [facility] Serum peanut IgE antibody as say (units/volume)Ordered By: Quang Myles on 08-08-2024 Peanut IgE Qn (S) <0.10 kU/L Class 0 [facility] Serum perinuclear neutrophil cytoplasmic antibody titer by immunofluorescenceOrdered By: Quang Myles on 08-08-2024 Neutrophil cytoplasmic Ab.perinuclear IF (S) [Titer] <1:20 titer Neg:<1:20 [facility] Serum soybean IgE antibody a ssay (units/volume)Ordered By: Quang Myles on 08-08-2024 Soybean IgE Qn (S) <0.10 kU/L Class 0 [facility] Serum tissue transglutaminas e (tTG) IgA antibody assay (units/volume)Ordered By: Quang Myles on 08-08-2024 tTG IgA Qn (S) <2 U/mL 0-3 [facility] Serum wheat IgE antibody ass ay (units/volume)Ordered By: Quang Myles on 08-08-2024 Wheat IgE Qn (S) <0.10 kU/L Class 0 [facility] Sodium levelOrdered By: Wendy Au on 08-08-2024 Sodium [Moles/Vol] 138 mmol/L 133-145 [facility] TSH DL <= 0.005 mIU/L QnOrde red By: Quang Myles on 08-08-2024 TSH Qn 2.360 uIU/mL 0.300-4.20 0 [facility] Thyroid Stim Hormone (TSH)on 08-08-2024 TSH 2.360 uIU/mL Normal 0.300-4.20 0 [facility] Comment on above: Performed By: #### L 101.9900, L500.4050, L501.6710, L501.9985, L503.5510, L3200.0500, L3100.5440, L5500.0410, L3100.3425, L503.6150, L3300.0100, L3100.1850, L504.2610, L100.9950, L3300.1200, L100.0100, L501.9520, L300.3900, L3410.2400, L3200.1100, L3100.6900, L3400.0700, L503.6550, L3300.1800 ####[facility] [address] [place], [address] Total proteinOrdered By: Luis Myles on 08-08-2024 Protein [Mass/Vol] 7.3 g/dL 5.9-8.4 [facility] Venous blood ammonia measure mentOrdered By: Quang Myles on 08-08-2024 Ammonia (P) [Moles/Vol] 36.2 umol/L 11-51 [facility] White blood cell (WBC) count Ordered By: Quang Friend on 08-08-2024 WBC (Bld) [#/Vol] 9.2 10*3/uL 4.4-11.0 [facility] Basic metabolic 2000 panelon 07-27-2024 Anion gap [Moles/Vol] 13 mmol/L Normal 8-15 [facility] Comment on above: Order Comment: Speci men Type: BLOOD SPECIMEN Ordering Facility: [facility] Address: [address] [place] [address] Performed By: #### 1 9123-9, 22878-0 #### [facility] CLIA [id number] [address] [place] [address] [place] Calcium [Mass/Vol] 10.3 mg/dL High 8.5-10.2 [facility] Comment on above: Order Comment: Speci men Type: BLOOD SPECIMEN Ordering Facility: [facility] Address: [address] [place] [address] Performed By: #### 1 9123-9, 51999-0 #### [facility] CLIA [id number] [address] [place] [address] [place] Chloride [Moles/Vol] 98 mmol/L Normal 98-107 [facility] Comment on above: Order Comment: Speci men Type: BLOOD SPECIMEN Ordering Facility: [facility] Address: [address] [place] [address] Performed By: #### 1 9123-9, 13832-1 #### [facility] CLIA [id number] [address] [place], [place] [address] [place] CO2 [Moles/Vol] 23 mmol/L Normal 22-30 [facility] Comment on above: Order Comment: Speci men Type: BLOOD SPECIMEN Ordering Facility: [facility] Address: [address] [place] [address] Performed By: #### 1 9123-9, 02832-5 #### [facility] CLIA [id number] [address] [place] [address] [place] Creatinine [Mass/Vol] 0.88 mg/dL Normal 0.58-0.96 [facility] Comment on above: Order Comment: Speci men Type: BLOOD SPECIMEN Ordering Facility: [facility] Address: [address] [place] [place] [address] Performed By: #### 1 9123-9, 39242-6 #### [facility] CLIA [id number] [address] [place] [address] [place] Creatinine and Glomerular filtration rate.predicted panel (S/P/Bld) 83 mL/min/1.73m??? Normal >=60 [facility] Comment on above: Order Comment: Speci men Type: BLOOD SPECIMEN Ordering Facility: [facility] Address: [address] [place] [place] [address] Result Comment: Vidal mated Glomerular Filtration Rate (eGFR) is calculated [...] actual GFR. Performed By: #### 1 9123-9, 39295-1 #### [facility] CLIA [id number] [address] [place] [address] [place] Glucose [Mass/Vol] 84 mg/dL Normal 74-99 [facility] Comment on above: Order Comment: Speci men Type: BLOOD SPECIMEN Ordering Facility: [facility] Address: [address] [place] [place] [address] Result Comment: The [place] [employer] (ADA) provides guidance for cutoff [...] Standards of Medical Care in Diabetes 2016, [place] [employer]. Diabetes Care. 2016.39(Suppl 1). Performed By: #### 1 9123-9, 50871-2 #### [facility] CLIA [id number] [address] [place] [address] [place] Potassium [Moles/Vol] 5.4 mmol/L High 3.7-5.1 [facility] Comment on above: Order Comment: David horton Type: BLOOD SPECIMEN Ordering Facility: [facility] Address: [address] [place] [place] [address] Performed By: #### 1 9123-9, 68602-5 #### [facility] CLIA [id number] [address] [place] [address] [place] Sodium [Moles/Vol] 134 mmol/L Low 136-144 [facility] Comment on above: Order Comment: David horton Type: BLOOD SPECIMEN Ordering Facility: [facility] Address: [address] [place] [place] [address] Performed By: #### 1 9123-9, 52434-9 #### [facility] CLIA [id number] [address] [place] [address] [place] Urea nitrogen [Mass/Vol] 25 mg/dL High 7-21 [facility] Comment on above: Order Comment: Kianai men Type: BLOOD SPECIMEN Ordering Facility: [facility] Address: [address] [place] [place] [address] Performed By: #### 1 9123-9, 31129-6 #### [facility] CLIA [id number] [address] [place] [address] [place] CBC panel Auto (Bld)on 07-27 Erythrocyte distribution width (RBC) [Ratio] 14.0 % Normal 11.5-15.0 [facility] Comment on above: Order Comment: Speci men Type: BLOOD SPECIMEN Ordering Facility: [facility] Address: [address] [place] [place] [address] Performed By: #### 5 8410-2 #### [facility] CLIA [id number] [address] [place] [address] [place] Hematocrit (Bld) [Volume fraction] 55.3 % High 36.0-46.0 [facility] Comment on above: Order Comment: Speci men Type: BLOOD SPECIMEN Ordering Facility: [facility] Address: [address] [place] [place] [address] Performed By: #### 5 8410-2 #### [facility] CLIA [id number] [address] [place] [address] [place] Hemoglobin (Bld) [Mass/Vol] 18.1 g/dL High 11.5-15.5 [facility] Comment on above: Order Comment: Speci men Type: BLOOD SPECIMEN Ordering Facility: [facility] Address: [address] [place] [address] Performed By: #### 5 8410-2 #### [facility] CLIA [id number] [address] [place] [address] [place] MCH (RBC) [Entitic mass] 31.5 pg Normal 26.0-34.0 [facility] Comment on above: Order Comment: Speci men Type: BLOOD SPECIMEN Ordering Facility: [facility] Address: [address] [place] [place] [address] Performed By: #### 5 8410-2 #### [facility] CLIA [id number] [address] [place] [address] [place] MCHC (RBC) [Mass/Vol] 32.7 g/dL Normal 30.5-36.0 [facility] Comment on above: Order Comment: Speci men Type: BLOOD SPECIMEN Ordering Facility: [facility] Address: [address] [place] [place] [address] Performed By: #### 5 8410-2 #### [facility] CLIA [id number] [address] [place] [address] [place] MCV (RBC) [Entitic vol] 96.3 fL Normal 80.0-100.0 [facility] Comment on above: Order Comment: Speci men Type: BLOOD SPECIMEN Ordering Facility: [facility] Address: [address] [place] [place] [address] Performed By: #### 5 8410-2 #### [facility] CLIA [id number] [address] [place] [address] [place] Nucleated RBC (Bld) [#/Vol] 10*3/uL Normal <0.01 [facility] Comment on above: Order Comment: Speci men Type: BLOOD SPECIMEN Ordering Facility: [facility] Address: [address] [place] [address] Performed By: #### 5 8410-2 #### [facility] CLIA [id number] [address] [place] [address] [place] Platelet mean volume (Bld) [Entitic vol] 9.5 fL Normal 9.0-12.7 [facility] Comment on above: Order Comment: Speci men Type: BLOOD SPECIMEN Ordering Facility: [facility] Address: [address] [place] [place] [address] Performed By: #### 5 8410-2 #### [facility] CLIA [id number] [address] [place] [address] [place] Platelets (Bld) [#/Vol] 385 10*3/uL Normal 150-400 [facility] Comment on above: Order Comment: Speci men Type: BLOOD SPECIMEN Ordering Facility: [facility] Address: [address] [place] [place] [address] Performed By: #### 5 8410-2 #### [facility] CLIA [id number] [address] [place] [address] [place] RBC (Bld) [#/Vol] 5.74 10*6/uL High 3.90-5.20 [facility] Comment on above: Order Comment: Speci men Type: BLOOD SPECIMEN Ordering Facility: [facility] Address: [address] [place] [place] [address] Performed By: #### 5 8410-2 #### [facility] CLIA [id number] [address] [place] [address] [place] WBC (Bld) [#/Vol] 12.54 10*3/uL High 3.70-11.00 [facility] Comment on above: Order Comment: Speci men Type: BLOOD SPECIMEN Ordering Facility: [facility] Address: [address] [place] [place] [address] Performed By: #### 5 8410-2 #### [facility] CLIA [id number] [address] [place] [address] [place] CNDSon 07-27-2024 CNDS HNO ID: [id number] Author: CASE FONSECA MD Service: Cardiovascular Medicine Author Type: Physician Provider Relations Rep Type: Discharge Summary Filed: 08/08/2024 18:58 Note Text: -------- Attestation signed by Case Fonseca MD at 08/08/2024 6:58 PM As above -------- Department of Cardiovascular Medicine Discharge Summary (Template ID [id number]) PATIENT NAME: Michelle Mitchell ADMISSION DATE: 07/24/2024 [...] of lower extremity Yes 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 Consults: Infectious Disease, Electrophysiology, and Psychiatry Major [...] Other: See Comments suicidal ideations Azithromycin Intolerance [place] Anaphylaxis [place] Anaphylaxis pickles Fish Anaphylaxis Levofloxacin In D5w [...] Your Medications These medications were sent to [facility] [place] [id number] - [address] [place] [address] - [phone] [place] [address] metoprolol succinate ER 25 mg 24 hr tablet Transitions of Care Critical Issues: Outpatient Management: * Are there important medication changes and/or outstanding issues that need to be addressed: See Above * What is the plan for follow up: Follow up with local PCP and 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 Highest Readmis (more content not included)... Normal [facility] Culture, Blood (WB)on 2024 CUB No growth in 5 days. Normal [facility] Comment on above: Performed By: #### M 200.1000 ####[facility] [id number] [place], [address] Magnesium SerPl-mCncon 07-27 Magnesium [Mass/Vol] 2.3 mg/dL Normal 1.7-2.3 [facility] Comment on above: Order Comment: Speci men Type: BLOOD SPECIMEN Ordering Facility: [facility] Address: [address] [place] [address] Performed By: #### 1 9123-9, 02299-7 #### [facility] CLIA [id number] [address] [place] [address] [place] [address] [place] PT EDon 07-27-2024 PT ED HNO ID: [id number] Author: IRLANDA MOORE RPh Service: Pharmacy Author Type: Pharmacist Type: Patient Education Filed: 07/27/2024 08:40 Note Text: Heart Failure Counseling with Video Instruction Education Note Patient Name:.Michelle Mitchell Service Date: 07/27/2024 Service Time: 8:40 [...] FURTHER RECOMMENDATIONS (IF ANY): n/a [facility] PAGER: [phone] [facility] PT ED HNO ID: [id number] Author: JARVIS PALOMINO DTR Service: Nutrition Therapy Author Type: Drier Type: Patient Education Filed: 07/27/2024 08:38 Note [...] July 27, 2024 TIME: 8:38 AM PAGER: [facility] ALLIED HEALTHon 07-26-2024 ALLIED HEALTH HNO ID: [id number] Author: HARITHA GOMEZ Art Therapist Service: Art [...] follow up as able. SIGNATURE: Iván Ware Therapist PATIENT NAME: Michelle Mitchell DATE: July 26, 2024 TIME: 4:40 PM PAGER/CONTACT #: [phone] Normal [facility] Basic metabolic 2000 panelon 07-26-2024 Anion gap [Moles/Vol] 14 mmol/L Normal 8-15 [facility] Comment on above: Order Comment: Speci men Type: BLOOD SPECIMEN Ordering Facility: [facility] Address: [address] [place], [place] [address] Performed By: #### 1 9123-9, 67776-4 #### [facility] CLIA [id number] [address] [place] [address] [place] Calcium [Mass/Vol] 9.4 mg/dL Normal 8.5-10.2 [facility] Comment on above: Order Comment: Speci men Type: BLOOD SPECIMEN Ordering Facility: [facility] Address: [address] [place] [place] [address] Performed By: #### 1 9123-9, 47312-7 #### [facility] CLIA [id number] [address] [place] [address] [place] Chloride [Moles/Vol] 98 mmol/L Normal 98-107 [facility] Comment on above: Order Comment: Speci men Type: BLOOD SPECIMEN Ordering Facility: [facility] Address: [address] [place] [address] Performed By: #### 1 9123-9, 55286-3 #### [facility] CLIA [id number] [address] [place] [address] [place] CO2 [Moles/Vol] 24 mmol/L Normal 22-30 [facility] Comment on above: Order Comment: Speci men Type: BLOOD SPECIMEN Ordering Facility: [facility] Address: [address] [place], [place] [address] Performed By: #### 1 9123-9, 63903-8 #### [facility] CLIA [id number] [address] [place] [address] [place] Creatinine [Mass/Vol] 1.02 mg/dL High 0.58-0.96 [facility] Comment on above: Order Comment: Speci men Type: BLOOD SPECIMEN Ordering Facility: [facility] Address: [address] [place] [address] Performed By: #### 1 9123-9, 27276-4 #### [facility] CLIA [id number] [address] [place] [address] [place] Creatinine and Glomerular filtration rate.predicted panel (S/P/Bld) 70 mL/min/1.73m??? Normal >=60 [facility] Comment on above: Order Comment: David horton Type: BLOOD SPECIMEN Ordering Facility: [facility] Address: [address] [place] [address] Result Comment: Vidal mated Glomerular Filtration Rate (eGFR) is calculated [...] actual GFR. Performed By: #### 1 9123-9, 93512-6 #### [facility] CLIA [id number] [address] [place] [address] [place] Glucose [Mass/Vol] 98 mg/dL Normal 74-99 [facility] Comment on above: Order Comment: David horton Type: BLOOD SPECIMEN Ordering Facility: [facility] Address: [address] [place] [address] Result Comment: The [place] Diabetes Association (ADA) provides guidance for cutoff [...] Standards of Medical Care in Diabetes 2016, [place] [employer]. Diabetes Care. 2016.39(Suppl 1). Performed By: #### 1 9123-9, 91164-4 #### [facility] CLIA [id number] [address] [place] [address] [place] Potassium [Moles/Vol] 4.5 mmol/L Normal 3.7-5.1 [facility] Comment on above: Order Comment: Speci men Type: BLOOD SPECIMEN Ordering Facility: [facility] Address: [address] [place] [address] Performed By: #### 1 9123-9, 55400-8 #### [facility] CLIA [id number] [address] [place] [address] [place] Sodium [Moles/Vol] 136 mmol/L Normal 136-144 [facility] Comment on above: Order Comment: Speci men Type: BLOOD SPECIMEN Ordering Facility: [facility] Address: [address] [place] [address] Performed By: #### 1 9123-9, 31968-3 #### [facility] CLIA [id number] [address] [place] [address] [place] Urea nitrogen [Mass/Vol] 29 mg/dL High 7-21 [facility] Comment on above: Order Comment: Speci men Type: BLOOD SPECIMEN Ordering Facility: [facility] Address: [address] [place] [address] Performed By: #### 1 9123-9, 78905-7 #### [facility] CLIA [id number] [address] [place] [address] [place] CBC panel Auto (Bld)on 07-26 Erythrocyte distribution width (RBC) [Ratio] 14.1 % Normal 11.5-15.0 [facility] Comment on above: Order Comment: Speci men Type: BLOOD SPECIMEN Ordering Facility: [facility] Address: [address] [place] [address] Performed By: #### 5 8410-2 #### [facility] CLIA [id number] [address] [place] [address] [place] Hematocrit (Bld) [Volume fraction] 50.7 % High 36.0-46.0 [facility] Comment on above: Order Comment: Speci men Type: BLOOD SPECIMEN Ordering Facility: [facility] Address: [address] [place] [address] Performed By: #### 5 8410-2 #### [facility] CLIA [id number] [address] [place] [address] [place] Hemoglobin (Bld) [Mass/Vol] 16.3 g/dL High 11.5-15.5 [facility] Comment on above: Order Comment: Speci men Type: BLOOD SPECIMEN Ordering Facility: [facility] Address: [address] [place] [address] Performed By: #### 5 8410-2 #### [facility] CLIA [id number] [address] [place] [address] [place] MCH (RBC) [Entitic mass] 31.3 pg Normal 26.0-34.0 [facility] Comment on above: Order Comment: Speci men Type: BLOOD SPECIMEN Ordering Facility: [facility] Address: [address] [place] [address] Performed By: #### 5 8410-2 #### [facility] CLIA [id number] [address] [place] [address] [place] MCHC (RBC) [Mass/Vol] 32.1 g/dL Normal 30.5-36.0 [facility] Comment on above: Order Comment: Speci men Type: BLOOD SPECIMEN Ordering Facility: [facility] Address: [address] [place] [address] Performed By: #### 5 8410-2 #### [facility] CLIA [id number] [address] [place] [address] [place] MCV (RBC) [Entitic vol] 97.3 fL Normal 80.0-100.0 [facility] Comment on above: Order Comment: Speci men Type: BLOOD SPECIMEN Ordering Facility: [facility] Address: [address] [place] [address] Performed By: #### 5 8410-2 #### [facility] CLIA [id number] [address] [place] [address] [place] Nucleated RBC (Bld) [#/Vol] 10*3/uL Normal <0.01 [facility] Comment on above: Order Comment: Speci men Type: BLOOD SPECIMEN Ordering Facility: [facility] Address: [address] [place] [address] Performed By: #### 5 8410-2 #### [facility] CLIA [id number] [address] [place] [address] [place] Platelet mean volume (Bld) [Entitic vol] 9.8 fL Normal 9.0-12.7 [facility] Comment on above: Order Comment: Speci men Type: BLOOD SPECIMEN Ordering Facility: [facility] Address: [address] [place] [place] [address] Performed By: #### 5 8410-2 #### [facility] CLIA [id number] [address] [place] [address] [place] Platelets (Bld) [#/Vol] 344 10*3/uL Normal 150-400 [facility] Comment on above: Order Comment: Speci men Type: BLOOD SPECIMEN Ordering Facility: [facility] Address: [address] [place] [address] Performed By: #### 5 8410-2 #### [facility] CLIA [id number] [address] [place] [address] [place] RBC (Bld) [#/Vol] 5.21 10*6/uL High 3.90-5.20 [facility] Comment on above: Order Comment: Speci men Type: BLOOD SPECIMEN Ordering Facility: [facility] Address: [address] [place] [address] Performed By: #### 5 8410-2 #### [facility] CLIA [id number] [address] [place] [address] [place] WBC (Bld) [#/Vol] 15.07 10*3/uL High 3.70-11.00 [facility] Comment on above: Order Comment: Speci men Type: BLOOD SPECIMEN Ordering Facility: [facility] Address: [address] [place] [place] [address] Performed By: #### 5 8410-2 #### [facility] CLIA [id number] [address] [place] [address] [place] CNOVon 07-26-2024 CNOV Office Visit ([place] ) -------- MICHELLE MITCHELL ([id number]) 1980 F Date Time Provider Department 07/26/24 8:15 AM [facility] J-2 [place] During your visit today, we recorded the following information about you: Referring Provider: TEJAL RODRÍGUEZ [[id number]] Allergies As of Date: 07/26/2024 Noted Allergy [...] [Z85.41] 07/12 (more content not included)... Normal [facility] CNOV Office Visit (P[place] ) -------- MICHELLE MITCHELL ([id number]) 1980 F Date Time Provider Department 07/26/24 8:00 AM [facility] J-2 [place] During your visit today, we recorded the following information about you: Referring Provider: TEJAL RODRÍGUEZ [[id number]] Allergies As of Date: 07/26/2024 Noted Allergy [...] [Z85.41] 07/12 (more content not included)... Normal [facility]-2024 CONSULT HNO ID: [id number] Author: TANJA PINA MD Service: Vascular Medicine [...] nausea, facial swelling. She was seen in [place] ED twice and was discharged home. She was then advised to go to [facility] and was admitted on 07/04/2024. Per [...] duodenum. She was then transferred to the [facility] Main campus on 07/24/2024 as she was noted to have some lesion around ICD concerning for vegetation/endocarditis. At present, patient is being treated for heart failure exacerbation and also being worked up by ID. Prior VTE history (personal/ family) Per chart review, patient had several presentations to ED due to chest pain for the last 2 years. 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 She was then discharged on Xarelto. Due to intermittent episodes of severe chest pain, she ended up getting CT chest every month to reevaluate pulmonary artery. She then followed up with Dr. 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 Xarelto was [...] BRCA mutation checked while she was in [facility]. FAMILY HISTORY: family history includes Breast Cancer [...] Other: See Comments suicidal ideations Azithromycin Intolerance [place] Anaphylaxis [place] Anaphylaxis pickles Fish Anaphylaxis Levofloxacin In D5w [...] screening done (more content not included)... Normal [facility] CONSULT PROGon 07-26-2024 CONSULT PROG HNO ID: [id number] Author: ROSAMARIA HAJI MD Service: Electrophysiology Author [...] found for the last 365 days. Normal [facility] CONSULT PROG HNO ID: [id number] Author: DAINA MCPHERSON MD Service: Infectious Disease [...] primary team. Signature: Daina Mcpherson MD Pager: [phone] Normal [facility] LUNG DIFFUSION CAPACITY (CARMEN O)on 07-26-2024 LUNG DIFFUSION CAPACITY ([place]) [facility] [address] [place] [address] Test Date: 2024-07-26 Pat Name: MICHELLE MITCHELL Department: Room: [place] [address] Gender: Female Sponge Diver: : 1980 Requested By: Order Number: [id number] [...] 11:31:34 EDT by Dex Ch MD ID: [id number] Name: MICHELLE MITCHELL Race: White Ht: 63.15 [...] FIF50 4.29 FEF50/FIF50 0.36 90-100 FIVC 2.81 ELS15-42 1.16 1.71 2.91 4.40 39 -2.58 ExpiredTime [...] 82 % FEV1/FVC_LLN (%) : 71 % JUX53_BOP (L/S) : 3.39 L/S JNO77_JDK (L/S) : 0.45 L/S XDC51_WINI (L/S) : 1.04 L/S SRK88_GDK (L/S) : 0.48 L/S RFE44_SNC (L/S) : 2.06 L/S FJG84-54%_PRE (L/S) : 1.16 L/S DLJ95-36%_PRED (L/S) : 2.91 L/S KXZ45-92%_LLN (L/S) : 1.71 L/S PEF_PRE (L/S) : [...] ml/min/mmHg DLCO/VACOR (ML/MIN/MMHG/L) : 0.04 ml/min/mmHg/L Normal [facility] Magnesium SerPl-mCncon 07-26 Magnesium [Mass/Vol] 2.3 mg/dL Normal 1.7-2.3 [facility] Comment on above: Order Comment: Speci men Type: BLOOD SPECIMEN Order[facility] Facility[facility] Address: [address] [place] [address] Performed By: #### 1 9123-9, 25476-4 #### [facility] CLIA [id number] [address] [place] [address] [place] PTT, ANTICOAGULANT THERAPYon 07-26-2024 aPTT Coag (PPP) [Time] 26.1 s Normal 23.0-32.4 [facility] Comment on above: Order Comment: Speci men Type: BLOOD SPECIMENOrdering Facility: [facility] Address: [address] [place] [place] [address] Performed By: #### P TTA ####[facility] [id number] [place] [address] [place] aPTT Coag (PPP) [Time] 94.8 s High 23.0-32.4 [facility] Comment on above: Order Comment: Speci men Type: BLOOD SPECIMEN Order[facility] Facility: [facility] Address: [address] [place] [address] Performed By: #### 5 8410-2 #### [facility] CLIA [id number] [address] [place] [address] [place] aPTT Coag (PPP) [Time] 64.9 s High 23.0-32.4 Cl [facility] Comment on above: Order Comment: Speci men Type: BLOOD SPECIMENOrdering Facility: [facility] Address: [address] [place] [address] Performed By: #### P TTAC ####[facility] [id number] [place] [id number] [place] [address] [place] SPIROMETRY BASELINE ONLYon 0 07-26-2024 SPIROMETRY BASELINE ONLY [facility] [address] [place] [address] Test Date: 2024-07-26 Pat Name: MICHELLE MITCHELL Department: Room: [place] [address] Gender: Female Sponge Diver: : 1980 Requested By: Order Number: [id number] Reading MD: Dex hC MD Interpretive Statements Current ATS/ERS acceptability and [...] 11:31:34 EDT by Dex Ch MD ID: [id number] Name: RAUL MITCHELLAL Angelo Race: White Ht: [...] FIF50 4.29 FEF50/FIF50 0.36 90-100 FIVC 2.81 JND05-32 1.16 1.71 2.91 4.40 39 -2.58 ExpiredTime [...] obtained from [facility] on 07/26/2024.//KJ Normal [facility] Basic metabolic 2000 panelon 07-25-2024 Anion gap [Moles/Vol] 11 mmol/L Normal 8-15 [facility] Comment on above: Order Comment: Speci men Type: BLOOD SPECIMEN [facility] Facility: [facility] Address: [address] [place] [address] Performed By: #### 5 8410-2 #### [facility] CLIA [id number] [address] [place] [address] [place] Calcium [Mass/Vol] 9.8 mg/dL Normal 8.5-10.2 [facility] Comment on above: Order Comment: Speci men Type: BLOOD SPECIMEN Ordering Facility: [facility] Address: [address] [place] [address] Performed By: #### 5 8410-2 #### [facility] CLIA [id number] [address] [place] [address] [place] Chloride [Moles/Vol] 97 mmol/L Low 98-107 [facility] Comment on above: Order Comment: Speci men Type: BLOOD SPECIMEN Ordering Facility: [facility] Address: [address] [place] [address] Performed By: #### 5 8410-2 #### [facility] CLIA [id number] [address] [place] [address] [place] CO2 [Moles/Vol] 27 mmol/L Normal 22-30 [facility] Comment on above: Order Comment: Speci men Type: BLOOD SPECIMEN Order[facility] Facility: [facility] Address: [address] [place] [address] Performed By: #### 5 8410-2 #### [facility] CLIA [id number] [address] [place] [address] [place] Creatinine [Mass/Vol] 1.10 mg/dL High 0.58-0.96 [facility] Comment on above: Order Comment: Speci men Type: BLOOD SPECIMEN Order[facility] Facility: [facility] Address: [address] [place] [address] Performed By: #### 5 8410-2 #### [facility] CLIA [id number] [address] [place] [address] [place] Creatinine and Glomerular filtration rate.predicted panel (S/P/Bld) 64 mL/min/1.73m??? Normal >=60 [facility] Comment on above: Order Comment: Speci men Type: BLOOD SPECIMEN Ordering Facility: [facility] Address: [address] [place] [place] [address] Result Comment: Vidal mated Glomerular Filtration Rate (eGFR) is calculated [...] GFR. Performed By: #### 5 8410-2 #### [facility] CLIA [id number] [address] [place] [address] [place] Glucose [Mass/Vol] 81 mg/dL Normal 74-99 [facility] Comment on above: Order Comment: Speci men Type: BLOOD SPECIMEN Order[facility] Facility: [facility] Address: [address] [place] [place] [address] Result Comment: The [place] Diabetes [employer] (ADA) provides guidance for cutoff [...] Standards of Medical Care in Diabetes 2016, [place] [employer]. Diabetes Care. 2016.39(Suppl 1). Performed By: #### 5 8410-2 #### [facility] CLIA [id number] [address] [place] [address] [place] Potassium [Moles/Vol] 5.2 mmol/L High 3.7-5.1 [facility] Comment on above: Order Comment: Speci men Type: BLOOD SPECIMEN Ordering Facility: [facility] Address: [address] [place] [place] [address] Performed By: #### 5 8410-2 #### [facility] CLIA [id number] [address] [place] [address] [place] Sodium [Moles/Vol] 135 mmol/L Low 136-144 [facility] Comment on above: Order Comment: Speci men Type: BLOOD SPECIMEN Order[facility] Facility: [facility] Address: [address] [place] [address] Performed By: #### 5 8410-2 #### [facility] CLIA [id number] [address] [place] [address] [place] Urea nitrogen [Mass/Vol] 31 mg/dL High 7-21 [facility] Comment on above: Order Comment: Speci men Type: BLOOD SPECIMEN Ordering Facility: [facility] Address: [address] [place] [place] [address] Performed By: #### 5 8410-2 #### [facility] CLIA [id number] [address] [place] [address] [place] CBC panel Auto (Bld)on 07-25 Erythrocyte distribution width (RBC) [Ratio] 14.0 % Normal 11.5-15.0 [facility] Comment on above: Order Comment: Speci men Type: BLOOD SPECIMENOrdering Facility: [facility] Address: [address] [place] [address] Performed By: #### 5 8410-2 ####[facility] [id number] [place] [address] [place] Hematocrit (Bld) [Volume fraction] 50.1 % High 36.0-46.0 [facility] Comment on above: Order Comment: Speci men Type: BLOOD SPECIMENOrdering Facility: [facility] Address: [address] [place] [place] [address] Performed By: #### 5 8410-2 ####[facility] [id number] [place] [address] [place] Hemoglobin (Bld) [Mass/Vol] 16.0 g/dL High 11.5-15.5 [facility] Comment on above: Order Comment: Speci men Type: BLOOD SPECIMENOrdering Facility: [facility] Address: [address] [place] [place] [address] Performed By: #### 5 8410-2 ####[facility] [id number] [place] [id number] [place] MCH (RBC) [Entitic mass] 31.1 pg Normal 26.0-34.0 [facility] Comment on above: Order Comment: Speci men Type: BLOOD SPECIMENOrdering Facility: [facility] Address: [address] [place] [place] [address] Performed By: #### 5 8410-2 ####[facility]IA [id number] [place] [address] [place] MCHC (RBC) [Mass/Vol] 31.9 g/dL Normal 30.5-36.0 [facility] Comment on above: Order Comment: Speci men Type: BLOOD SPECIMENOrdering Facility: [facility] Address: [address] [place] [place] [address] Performed By: #### 5 8410-2 ####[facility] LABIA [id number] [place] [address] [place] MCV (RBC) [Entitic vol] 97.5 fL Normal 80.0-100.0 [facility] Comment on above: Order Comment: Speci men Type: BLOOD SPECIMENOrdering Facility: [facility] Address: [address] [place] [place] [address] Performed By: #### 5 8410-2 ####[facility] LABIA [id number] [place] [address] [place] Nucleated RBC (Bld) [#/Vol] 10*3/uL Normal <0.01 [facility] Comment on above: Order Comment: Speci men Type: BLOOD SPECIMENOrdering Facility: [facility] Address: [address] [place] [address] Performed By: #### 5 8410-2 ####[facility] LABIA [id number] [place] [address] [place] Platelet mean volume (Bld) [Entitic vol] 10.4 fL Normal 9.0-12.7 [facility] Comment on above: Order Comment: Speci men Type: BLOOD SPECIMENOrdering Facility: [facility] Address: [address] [place], [place] [address] Performed By: #### 5 8410-2 ####[facility] LABIA [id number] [place] [address] [place] Platelets (Bld) [#/Vol] 386 10*3/uL Normal 150-400 [facility] Comment on above: Order Comment: Speci men Type: BLOOD SPECIMENOrdering Facility: [facility] Address: [address] [place] [address] Performed By: #### 5 8410-2 ####[facility] LABIA [id number] [place] [address] [place] RBC (Bld) [#/Vol] 5.14 10*6/uL Normal 3.90-5.20 [facility] Comment on above: Order Comment: Speci men Type: BLOOD SPECIMENOrdering Facility: [facility] Address: [address] [place] [address] Performed By: #### 5 8410-2 ####[facility] [id number] [place] [id number] [place] WBC (Bld) [#/Vol] 21.49 10*3/uL High 3.70-11.00 [facility] Comment on above: Order Comment: Speci men Type: BLOOD SPECIMENOrdering Facility: [facility] Address: [address] [place] [address] Performed By: #### 5 8410-2 ####[facility] LABIA [id number] [place] [id number] [place] CNOVon 07-25-2024 CNOV Office Visit (CAFN ) -------- SALMAN,MICHELLE J ([id number]) 1980 F Date Time Provider Department 07/25/24 [...] In Department: CARDIOLOGY Referring Provider: TEJAL RODRÍGUEZ [[id number]] Allergies As of Date: 07/25/2024 Noted Allergy [...] pain [R10.31] (more content not included)... Normal [facility] CONSULTon 07-25-2024 CONSULT HNO ID: [id number] Author: RADU RIVERS MD Service: Cardiovascular Medicine [...] PERMANENT TRANSVENOUS PACEMAKER INSERTION 2006 ICD implant, [facility] ANESTHESIA TUBAL LIGATION/TRANSECTION APPENDECTOMY 05/05/2014 , [...] suicidal ideations Ativan [Lorazepam] Vomiting Azithromycin Intolerance [place] Anaphylaxis [place] Anaphylaxis pickles Fish Anaphylaxis Levofloxacin In D5w Swelling, Itching IV site swollen, ceased after d/c, redness and itching at site Neurontin [Gabapent* Mental Status Change Shellfish Anaphylaxis Tigan [Trimethobenz* Anaphylaxis Ultram [Tramadol] Hives Pt states she also pukes a lot Vicod (more content not included)... Normal [facility] ECG COMPLETEon 07-25-2024 ECG COMPLETE Ventricular Rate : 6 6 BPM Atrial Rate : 66 BPM P-R Interval : 156 ms QRS Duration : 86 ms Q-T Interval : 414 ms QTC Calculation(Bazett) : 434 ms Calculated P [place] : 18 degrees Calculated R [place] : -73 degrees Calculated T [place] : 73 degrees NORMAL SINUS RHYTHM BIATRIAL ENLARGEMENT LEFT ANTERIOR FASCICULAR BLOCK LEFT VENTRICULAR HYPERTROPHY ( Sunny product , Romhilt-Sheets ) ST & LATERAL T WAVE ABNORMALITY ABNORMAL ECG Confirmed by HIPOLITO DAVIS MD ([id number]) on 08/18/2024 10:33:24 PM NAME : MICHELLE MITCHELL PID : [id number] : 1980 Gender : Female Race : ORD : [id number] Procedure Date : Jul 25 2024 09:39:38 Edit Date : Aug 18 2024 22:33:30 Diagnosis: NORMAL SINUS RHYTHM BIATRIAL ENLARGEMENT LEFT ANTERIOR FASCICULAR BLOCK LEFT VENTRICULAR HYPERTROPHY ( [place] product , Romhilt-Sheets ) ST & LATERAL T WAVE ABNORMALITY ABNORMAL ECG Confirmed by HIPOLITO DAVIS MD ([id number]) on 08/18/2024 10:33:24 PM Test Reason : Chest Pain Location : 353 : J53 J053-11 Overread By : HIPOLITO DAVIS MD Edited By : HIPOLITO DAVIS MD Referred By : MERCY BISHOP Acquired by : INGRID ANGELA Normal [facility] ECHO TRANSESOPHAGEALon 07-25 ECHO TRANSESOPHAGEAL Echocardiography Re port: Transesophageal Echo [facility] J1-5 Date of service: 07/25/2024 3:16:24 PM [employer] Ordering physician: TEJAL RODRÍGUEZ 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 [...] * * * Final * * * No [employer] [facility] Image : [id number] ID Normal [facility] HIGH SENSITIVITY TROPONIN To n 07-25-2024 Troponin T.cardiac High sensitivity method [Mass/Vol] 48 ng/L High <12 [facility] Comment on above: Order Comment: David horton Type: BLOOD SPECIMENOrdering Facility: [facility] Address: [address] [place] [address] Performed By: #### H STNT ####[facility] LAB[facility]IA [id number] [place] [address] [place] Troponin T.cardiac High sensitivity method [Mass/Vol] 50 ng/L High <12 [facility] Comment on above: Order Comment: David horton Type: BLOOD SPECIMENOrdering Facility: [facility] Address: [address] [place] [address] Performed By: #### H STNT ####[facility] LABCLIA [id number] [place] [address] [place] Troponin T.cardiac High sensitivity method [Mass/Vol] 57 ng/L High <12 [facility] Comment on above: Order Comment: David horton Type: BLOOD SPECIMEN [facility] Address: [address] [place] [address] Performed By: #### 5 8410-2 #### [facility] CLIA [id number] [address] [place] [address] [place] HbA1c (Bld)on 07-25-2024 Average glucose Estimated from glycated hemoglobin (Bld) [Mass/Vol] 111 mg/dL Normal [facility] Comment on above: Order Comment: David horton Type: BLOOD SPECIMENOrdering Facility: [facility] Address: [address] [place] [address] Result Comment: eAG: (Estimated average glucose) is a calculated value from HgbA1c and is hr representative of the average blood glucose level in the last 2-3 month period. Performed By: #### 5 5454-3 ####[facility] LABCLIA [id number] [place] [address] [place] [facility] HbA1c (Bld) [Mass fraction] 5.5 % Normal 4.3-5.6 [facility] Comment on above: Order Comment: David horton Type: BLOOD SPECIMENOrdering Facility: [facility] Address: [address] [place] [place] [address] Result Comment: Amer [place] Diabetes Association guidelines indicate that patients with HgbA1c in the range 5.7-6.4% are at increased risk for development of diabetes, and intervention by lifestyle modification may be beneficial. HgbA1c greater or equal to 6.5% is considered diagnostic of diabetes. Performed By: #### 5 5454-3 ####[facility] LABCLIA [id number] [place] [address] [place] Magnesium SerPl-mCncon 07-25 Magnesium [Mass/Vol] 2.5 mg/dL High 1.7-2.3 [facility] Comment on above: Order Comment: David horton Type: BLOOD SPECIMEN [facility] Address: [address] [place] [address] Performed By: #### 5 8410-2 #### [facility] CLIA [id number] [address] [place] [address] [place] NURSING PROGon 07-25-2024 NURSING PROG HNO ID: [id number] Author: DOMINGUEZ OBREGON RN Service: ? Author [...] Dominguez Obregon RN In Department: CARDIOLOGY Normal [facility] PTT, ANTICOAGULANT THERAPYon 07-25-2024 aPTT Coag (PPP) [Time] 48.6 s High 23.0-32.4 [facility] Comment on above: Order Comment: David horton Type: BLOOD SPECIMEN [facility] Address: [address] [place] [address] Performed By: #### 5 8410-2 #### [facility] CLIA [id number] [address] [place] [address] [place] aPTT Coag (PPP) [Time] 48.0 s High 23.0-32.4 [facility] Comment on above: Order Comment: David horton Type: BLOOD SPECIMENOrdering Facility: [facility] Address: [address] [place] [place] [address] Performed By: #### P TTA ####[facility] LABCLIA [id number] [place] [address] [place] TSH SerPl-aCncon 07-25-2024 TSH Qn 3.760 m[IU]/L Normal 0.270-4.20 0 [facility] Comment on above: Order Comment: David horton Type: BLOOD SPECIMEN [facility] Address: [address] [place] [address] Result Comment: If t he patient is , TSH reference range varies by gestational period: First Trimester (weeks 9-12): 0.180-2.990 mIU/L Second Trimester: 0.110-3.980 mIU/L Third Trimester: 0.480-4.710 mIU/L Bacilio Lay et al. A Practical Approach for the Verifications and Determination of Site- and Trimester-Specific Reference Intervals for Thyroid Function tests in . Thyroid, 2019:29:3:412-420. Lopez E, et al. 2017 Guidelines of the [place] Thyroid Association for the Diagnosis and Management of Thyroid Disease during and the . Thyroid, 2017:27:3:315-389. Performed By: #### 5 8410-2 #### [facility] CLIA [id number] [address] [place] [address] STATES OF [facility] n 07-25-2024 [facility] Non-Invasive Vascular Laboratory [facility] Portable Lower Extremity Venous Duplex Bilateral/Complete Date [...] Joey Kowalski DO, RVT, RPVI Final CC No [employer] [facility] : [id number] ID See Link below for Image Normal [facility] Bacteria Bld Culton 07-25-19 Bacteria identified Cx Nom (Bld) CULTURE, BLOOD: No growth 5 days Normal [facility] Comment on above: Performed By: #### 6 00-7 ####[facility] LABCLIA [id number] [address] STATES OF [facility] CONSULTon 07-24-2024 CONSULT HNO ID: [id number] Author: DAINA MCPHERSON MD Service: Infectious Disease [...] 05/16-05/22/24. She presented with abdominal pain around [place], for which she had presented several times [...] TRANSVENOUS PACEMAKER INSERTION Apr. 2006 ICD implant, [facility] ANESTHESIA TUBAL LIGATION/TRANSECTION APPENDECTOMY 05/05/2014 , [...] suicidal ideations Ativan [Lorazepam] Vomiting Azithromycin Intolerance [place] Anaphylaxis [place] Anaphylaxis pickles Fish Anaphylaxis Levofloxacin In D5w [...] 2006, deloris (more content not included)... Normal [facility] CRP SerPl HS-mCncon 07-25-19 25 CRP High sensitivity method [Mass/Vol] 0.9 mg/L Normal <3.1 [facility] Comment on above: Order Comment: Speci men Type: BLOOD SPECIMEN [facility] Address: [address] [place] [address] Result Comment: hsCR P < 1.0 mg/L, relative risk is low hsCRP 1.0-3.0 mg/L, relative risk is average hsCRP > 3.0 mg/L, relative risk is high Reference: Mojica TA, Chen GA, Lopez RW, et al. Markers of Inflammation and Cardiovascular Disease. Application to Clinical and Public Health Practice. A Statement for Healthcare Professionals from the Centers for Disease Control and Prevention and the [place] Heart Association. Circulation 2003;107:499-511. Performed By: #### 1 9123-9, 93290-3 #### [facility] CLIA [id number] [address] [place] [address] [id number] 07-24-2024 ECG01 Ventricular Rate : 6 4 BPM Atrial Rate : 64 BPM P-R Interval : 156 ms QRS Duration : 84 ms Q-T Interval : 426 ms QTC Calculation(Bazett) : 439 ms Calculated P [place] : 29 degrees Calculated R [place] : 259 degrees Calculated T [place] : 62 degrees NORMAL SINUS RHYTHM BIATRIAL ENLARGEMENT RIGHT SUPERIOR AXIS DEVIATION LEFT VENTRICULAR HYPERTROPHY RIGHT VENTRICULAR HYPERTROPHY NONSPECIFIC ST ABNORMALITY ABNORMAL ECG Confirmed by MERCY BRADFORD MD ([id number]) on 08/25/2024 3:54:02 PM NAME : MICHELLE MITCHELL PID : [id number] : 1980 Gender : Female Race : [...] : MERCY BRADFORD MD Referred By : [facility], Acquired by : Carlos Eduardo BONNER [facility] ECHOon 07-24-2024 Echocardiography Echocardiography Rep ort: Transthoracic Echo [facility] Date of service: 07/24/2024 3:02:30 PM [employer] Ordering physician: TEJAL RODRÍGUEZ Indication: Shortness of Breath Technologist: Krissy Oviedo RVT Interpreting physician: Ksaie Mcgee MD PATIENT: Name: MRS. MICHELLE MITCHELL [...] prior CC echocardiographic exam performed on 04/25/2021 ([facility]). Mobile echodensity reported today as above. MICKI may better assesss. * * * Final * * * No [employer] [facility] : [id number] ID Normal [facility] ESR Westergren method (Bld) [Velocity]on 07-24-2024 ESR (Bld) [Velocity] 2 mm/h [facility] Comment on above: Order Comment: Speci men Type: BLOOD SPECIMENOrdering Facility: [facility] Address: [address] [place], [place] [address] Performed By: #### 4 537-7 ####[facility] LABCLIA [id number] [place] [address] [place] HCG Preg Ur Qlon 07-24-2024 HCG ( test) Ql (U) Negative Normal Negative [facility] Comment on above: Order Comment: Speci men Type: BLOOD SPECIMEN [facility] Address: [address] [place] [address] Result Comment: This test is intended to aid in the early detection of . Very dilute urine samples, as indicated by a low specific gravity, may not contain hr representative levels of hCG. This test detects [...] for . Performed By: #### 1 9123-9, 89028-8 #### [facility] CLIA [id number] [address] [place] [address] [place] HISTORY PHYSICALon HISTORY PHYSICAL HNO ID: [id number] Author: CASE FONSECA MD Service: Cardiovascular Medicine Author Type: Physician Type: H&P Filed: 07/25/2024 10:09 Note Text: [facility] CARDIOVASCULAR MEDICINE HISTORY AND PHYSICAL Michelle Mitchell [id number] PRIMARY SERVICE: Cardiovascular Medicine: Imaging DATE OF [...] states she began having abdominal issues around [facility], she went to [facility] for EGD/ colonoscopy, multiple biopsies taken. This [...] PERMANENT TRANSVENOUS PACEMAKER INSERTION 2006 ICD implant, [facility] ANESTHESIA TUBAL LIGATION/TRANSECTION APPENDECTOMY 05/05/2014 , [...] 10 mg (more content not included)... Normal [facility] NT-proBNP [facility] 07-24 Natriuretic peptide.B prohormone N-Terminal [Mass/Vol] 3054 pg/mL High <125 [facility] Comment on above: Order Comment: Speci men Type: BLOOD SPECIMEN [facility] Address: [address] [place] [address] Performed By: #### 5 8410-2 #### [facility] CLIA [id number] [address] [place] [address] [place] PTT, ANTICOAGULANT THERAPYon 07-24-2024 aPTT Coag (PPP) [Time] 32.1 s Normal 23.0-32.4 [facility] Comment on above: Order Comment: Speci men Type: BLOOD SPECIMEN [facility] Address: [address] [place] [address] Performed By: #### 1 9123-9, 46774-8 #### [facility] CLIA [id number] [address] [place] [address] [place] TOXICOLOGY SCREEN, ROUTINE U RINEon 07-24-2024 Amphetamines Confirm (U) [Mass/Vol] Negative Normal Negative [facility] Comment on above: Order Comment: Speci men Type: BLOOD SPECIMEN [facility] Address: [address] [place] [address] Result Comment: Cuto ff threshold at 1000 ng/mL. Performed By: #### 1 9123-9, 85894-3 #### [facility] CLIA [id number] [address] [place] [address] [place] BARBITURATES, URINE Negative Normal Negative [facility] Comment on above: Order Comment: Speci men Type: BLOOD SPECIMEN [facility] Address: [address] [place] [place] [address] Result Comment: Cuto ff threshold at 200 ng/mL. Performed By: #### 1 9123-9, 69569-8 #### [facility] CLIA [id number] [address] [place] [address] [place] BENZODIAZEPINES, UR Negative Normal Negative [facility] Comment on above: Order Comment: Speci men Type: BLOOD SPECIMEN [facility] Address: [address] [place] [place] [address] Result Comment: Cuto ff threshold at 200 ng/mL. Performed By: #### 1 9122-11, 48897-2 #### [facility] CLIA [id number] [address] [place] [address] [place] Cannabinoids Screen Ql (U) Negative Normal Negative [facility] Comment on above: Order Comment: Speci men Type: BLOOD SPECIMEN [facility] Address: [address] [place] [address] Result Comment: Cuto ff threshold at 50 ng/mL. Performed By: #### 1 919, 40798-1 #### [facility] CLIA [id number] [address] [place] [address] [place] Cocaine Ql (U) Negative Normal Negative [facility] Comment on above: Order Comment: Speci men Type: BLOOD SPECIMEN [facility] Address: [address] [place] [place] [address] Result Comment: Cuto ff threshold at 300 ng/mL. Performed By: #### 1 91239, 10015-4 #### [facility] CLIA [id number] [address] [place] [address] [place] Ethanol (U) [Mass/Vol] <11 Normal <11 [facility] Comment on above: Order Comment: Speci men Type: BLOOD SPECIMEN [facility] Address: [address] [place] [place] [address] Performed By: #### 1 91239, 53004-0 #### [facility] CLIA [id number] [address] [place] [address] [place] Opiates Screen Ql (U) Negative Normal Negative [facility] Comment on above: Order Comment: Speci men Type: BLOOD SPECIMEN [facility] Address: [address] [place] [place] [address] Result Comment: Cuto ff threshold at 300 ng/mL. Performed By: #### 1 91239, 43905-5 #### [facility] CLIA [id number] [address] [place] [address] [place] oxyCODONE cutoff Screen (U) [Mass/Vol] Positive Abnormal Negative [facility] Comment on above: Order Comment: Speci men Type: BLOOD SPECIMEN [facility] Address: [address] [place] [address] Result Comment: Cuto ff threshold at 100 ng/mL. Performed By: #### 1 9123-9, 94745-4 #### [facility] CLIA [id number] [address] [place] [address] [place] Phencyclidine Ql (U) Negative Normal Negative [facility] Comment on above: Order Comment: Speci men Type: BLOOD SPECIMEN [facility] Address: [address] [place] [place] [address] Result Comment: Cuto ff threshold at 25 ng/mL. Performed By: #### 1 9123-9, 01524-3 #### [facility] CLIA [id number] [address] [place] [address] [place] TYPE + SCREENon 07-24-2024 ABO A Normal [facility] Comment on above: Order Comment: Speci men Type: BLOOD SPECIMEN [facility] Address: [address] [place] [place] [address] Performed By: #### 5 8410-2 #### [facility] CLIA [id number] [address] [place] [address] [place] Rh Nom (Bld) Positive Normal [facility] Comment on above: Order Comment: Speci men Type: BLOOD SPECIMEN [facility] Address: [address] [place] [place] [address] Performed By: #### 5 8410-2 #### [facility] CLIA [id number] [address] [place] [address] [place] TYPE AND SCREEN EXPIRATION 07/27/2024 23:59 Normal [facility] Comment on above: Order Comment: Speci men Type: BLOOD SPECIMEN [facility] Address: [address] [place] [place] [address] Performed By: #### 5 8410-2 #### [facility] CLIA [id number] [address] [place] [address] [place] Urinalysis complete panel (U )on 07-24-2024 Bacteria LM.HPF (Urine sed) [#/Area] Negative Normal Negative [facility] Comment on above: Order Comment: Speci men Type: BLOOD SPECIMEN [facility] Address: [address] [place] [address] Performed By: #### 1 9123-9, 00641-7 #### [facility] CLIA [id number] [address] [place] [address] [place] Bilirubin Ql (U) Negative Normal Negative [facility] Comment on above: Order Comment: Speci men Type: BLOOD SPECIMEN [facility] Address: [address] [place] [address] Performed By: #### 1 9123-9, 23962-8 #### [facility] CLIA [id number] [address] [place] [address] [place] Clarity (Unsp spec) Clear Normal Clear [facility] Comment on above: Order Comment: Speci men Type: BLOOD SPECIMEN [facility] Address: [address] [place] [address] Performed By: #### 1 9123-9, 80569-2 #### [facility] CLIA [id number] [address] [place] [address] [place] Color (U) Yellow Normal Yellow [facility] Comment on above: Order Comment: Speci men Type: BLOOD SPECIMEN [facility] Address: [address] [place] [place] [address] Performed By: #### 1 9123-9, 98868-3 #### [facility] CLIA [id number] [address] [place] [address] [place] Epithelial cells LM.HPF (Urine sed) [#/Area] None Seen Normal [facility] Comment on above: Order Comment: Speci men Type: BLOOD SPECIMEN [facility] Address: [address] [place] [address] Performed By: #### 1 9123-9, 61384-3 #### [facility] CLIA [id number] [address] [place] [address] [place] Glucose Test strip (U) [Mass/Vol] Trace Abnormal Negative [facility] Comment on above: Order Comment: Speci men Type: BLOOD SPECIMEN [facility] Address: [address] [place] [address] Performed By: #### 1 9123-9, 05151-1 #### [facility] CLIA [id number] [address] [place] [address] [place] Hemoglobin Ql (U) Negative Normal Negative [facility] Comment on above: Order Comment: Speci men Type: BLOOD SPECIMEN [facility] Address: [address] [place] [address] Performed By: #### 1 9123-9, 28512-7 #### [facility] CLIA [id number] [address] [place] [address] [place] Hyaline casts (Urine sed) [#/Area] 1-3 /LPF Abnormal 0 /LPF [facility] Comment on above: Order Comment: Speci men Type: BLOOD SPECIMEN [facility] Address: [address] [place] [address] Performed By: #### 1 9123-9, 53150-1 #### [facility] CLIA [id number] [address] [place] [address] [place] Ketones Ql (U) Negative Normal Negative [facility] Comment on above: Order Comment: Speci men Type: BLOOD SPECIMEN [facility] Address: [address] [place] [address] Performed By: #### 1 9123-9, 02574-9 #### [facility] CLIA [id number] [address] [place] [address] [place] Leukocyte esterase Test strip Ql (U) Negative Normal Negative [facility] Comment on above: Order Comment: Speci men Type: BLOOD SPECIMEN [facility] Address: [address] [place] [address] Performed By: #### 1 91239, 83357-4 #### [facility] CLIA [id number] [address] [place] [address] [place] Nitrite Ql (U) Negative Normal Negative [facility] Comment on above: Order Comment: Speci men Type: BLOOD SPECIMEN [facility] Address: [address] [place] [address] Performed By: #### 1 91239, 98079-0 #### [facility] CLIA [id number] [address] [place] [address] [place] pH (U) 7.5 [pH] Normal <8.5 [facility] Comment on above: Order Comment: Speci men Type: BLOOD SPECIMEN [facility] Address: [address] [place] [address] Performed By: #### 1 239, 40682-8 #### [facility] CLIA [id number] [address] [place], [place] [address] [place] Protein (U) [Mass/Vol] Negative Normal Negative [facility] Comment on above: Order Comment: Speci men Type: BLOOD SPECIMEN [facility] Address: [address] [place] [address] Performed By: #### 1 91239, 92093-0 #### [facility] CLIA [id number] [address] [place] [address] [place] RBC LM.HPF (Urine sed) [#/Area] 0-2 /HPF Normal 0-2 /HPF [facility] Comment on above: Order Comment: Speci men Type: BLOOD SPECIMEN [facility] Address: [address] [place] [address] Performed By: #### 1 9123-9, 57585-1 #### [facility] [facility] CLIA [id number] [address] [place] [address] [place] Specific gravity (U) [Rel density] 1.007 Normal 1.005-1.03 0 [facility] Comment on above: Order Comment: Speci men Type: BLOOD SPECIMEN Ordering Facility: [facility] Address: [address] [place] [place] [address] Performed By: #### 1 9123-9, 97517-5 #### [facility] CLIA [id number] [address] [place] [address] [place] Urobilinogen Ql (U) 0.2 EU/dL Normal 0.2-1.0 EU/dL [facility] Comment on above: Order Comment: Speci men Type: BLOOD SPECIMEN Ordering Facility: [facility] Address: [address] [place] [address] Performed By: #### 1 9123-9, 77950-0 #### [facility] CLIA [id number] [address] [place] [address] [place] WBC LM.HPF (Urine sed) [#/Area] 0-5 /HPF Normal 0-5 /HPF [facility] Comment on above: Order Comment: Speci men Type: BLOOD SPECIMEN Ordering Facility: [facility] Address: [address] [place] [address] Performed By: #### 1 9123-9, 04851-5 #### [facility] CLIA [id number] [address] [place] [address] [place] XR ABDOMEN 1V SUPINEon 07-24 XR ABDOMEN 1V SUPINE * * *Final Report* * * DATE OF EXAM: Jul 24 2024 5:41PM DERRELL 5289 - XR ABDOMEN 1V SUPINE / [...] loops of bowel. No focal bony abnormality. Manager Of Clinical: PSCB Transcribe Date/Time: Jul 24 2024 6:40P Dictated by : ANASTASIA WILLSON MD This examination was interpreted and the report reviewed and electronically signed by: ANASTASIA WILLSON MD on Jul 24 2024 6:42PM EST [id number] Normal [facility] 12 Lead EKGon 07-23-2024 12 Lead EKG Normal [facility] Absolute lymphocyte countOrd ered By: Willian Ovalles on 07-23-2024 Lymphocytes Auto (Unsp spec) [#/Vol] 0.52 10*3/uL Low 0.83-4.51 [facility] Absolute neutrophil countOrd ered By: Willian Ovalles on 07-23-2024 Neutrophils (Bld) [#/Vol] 19.1 10*3/uL High 2.0-7.7 [facility] Anion gap in Serum or Plasma Ordered By: Willian Ovalles on 07-23-2024 Anion gap [Moles/Vol] 13 mmol/L 5-15 [facility] Automated lymphocyte count a s percentage of total leukocytesOrdered By: Willian Ovalles on 07-23-2024 Lymphocytes/100 WBC Auto (Unsp spec) 2.5 % Low 19-41 [facility] BUN/creatinine ratioOrdered By: Willian Ovalles on 07-23-2024 Urea nitrogen/Creatinine [Mass ratio] 32.9 mg/mg High 10-20 [facility] Basic Metabolic Profile (BMP )on 07-23-2024 BUN/CRE 32.9 RATIO High 12-31 [facility] Comment on above: Performed By: #### L 100.0100, L500.2500 ####[facility] [address] [place], [address] Calcium [Mass/Vol] 9.4 mg/dL Normal 7.6-11.0 [facility] Comment on above: Performed By: #### L 100.0100, L500.2500 ####[facility] [address] [place], [address] Chloride [Moles/Vol] 100 mmol/L Normal 98-108 [facility] Comment on above: Performed By: #### L 100.0100, L500.2500 ####[facility] [address] [place], [address] CO2 [Moles/Vol] 23.1 mmol/L Normal 21.0-32.0 [facility] Comment on above: Performed By: #### L 100.0100, L500.2500 ####[facility] [address] [place], [address] Creatinine [Mass/Vol] 0.93 mg/dL Normal 0.70-1.20 [facility] Comment on above: Performed By: #### L 100.0100, L500.2500 ####[facility] [address] [place], [address] ECRCL 66.66 ml/min Normal 50-250 [facility] Comment on above: Performed By: #### L 100.0100, L500.2500 ####[facility] [address] [place], [address] GAP 13 Normal 5-15 [facility] Comment on above: Performed By: #### L 100.0100, L500.2500 ####[facility] [address] [place], [address] GFR/1.73 sq M.predicted among non-blacks MDRD (S/P/Bld) [Vol rate/Area] 78 mL/min/{1.73_m2} Normal >60 [facility] Comment on above: Result Comment: mL/m in/1.73m2 CKD-EPI Creatinine Equation (2020) Performed By: #### L 100.0100, L500.2500 ####[facility] [address] [place], [address] Glucose [Mass/Vol] 99 mg/dL Normal 70-99 [facility] Comment on above: Performed By: #### L 100.0100, L500.2500 ####[facility] [address] [place], [address] Potassium [Moles/Vol] 4.6 mmol/L Normal 3.3-5.1 [facility] Comment on above: Result Comment: Hemo lysis present, Results??could be affected.?? Performed By: #### L 100.0100, L500.2500 ####[facility] [address] [place], [address] Sodium [Moles/Vol] 136 mmol/L Normal 133-145 [facility] Comment on above: Performed By: #### L 100.0100, L500.2500 ####[facility] [address] [place], [address] Urea nitrogen [Mass/Vol] 30 mg/dL High 4-19 [facility] Comment on above: Performed By: #### L 100.0100, L500.2500 ####[facility] [address] [place], [address] Basophil percentageOrdered B y: Willian Ovalles on 07-23-2024 Basophils/100 WBC (Bld) 0.2 % 0-1 [facility] CBC W/Diff, Automatedon 07-12 Absolute Lymph 0.52 X10 3/uL Low 0.83-4.51 [facility] Comment on above: Performed By: #### L 100.0100, L500.2500 ####[facility] [address] [place], [address] Absolute Neut 19.1 X10 3/uL High 2.0-7.7 [facility] Comment on above: Performed By: #### L 100.0100, L500.2500 ####[facility] [address] [place], [address] Basophils/100 WBC (Bld) 0.2 % Normal 0-1 [facility] Comment on above: Performed By: #### L 100.0100, L500.2500 ####[facility] [address] [place], [address] Eosinophils/100 WBC (Bld) 0.0 % Normal 0-5 [facility] Comment on above: Performed By: #### L 100.0100, L500.2500 ####[facility] [address] [place], [address] Erythrocyte distribution width (RBC) [Ratio] 13.9 % Normal 11.6-14.6 [facility] Comment on above: Performed By: #### L 100.0100, L500.2500 ####[facility] [address] [place], [address] Hematocrit (Bld) [Volume fraction] 45.5 % Normal 37-47 [facility] Comment on above: Performed By: #### L 100.0100, L500.2500 ####[facility] [address] [place], [address] Hemoglobin (Bld) [Mass/Vol] 15.2 g/dL High 12.0-15.0 [facility] Comment on above: Performed By: #### L 100.0100, L500.2500 ####[facility] [address] [place], [address] IG% 1.500 High 0.0-0.9 [facility] Comment on above: Result Comment: IG% - Immature Granulocytes (promyelocytes, myelocytes andmetamyelocytes) > 1% indicates that a LEFT SHIFT is Present. Performed By: #### L 100.0100, L500.2500 ####[facility] [address] [place], [address] Lymphocytes/100 WBC (Bld) 2.5 % Low 19-41 [facility] Comment on above: Performed By: #### L 100.0100, L500.2500 ####[facility] [address] [place], [address] MCH (RBC) [Entitic mass] 32.4 pg High 27.0-32.0 [facility] Comment on above: Performed By: #### L 100.0100, L500.2500 ####[facility] [address] [place], [address] MCHC (RBC) [Mass/Vol] 33.4 g/dL Normal 32-36 [facility] Comment on above: Performed By: #### L 100.0100, L500.2500 ####[facility] [address] [place], [address] MCV (RBC) [Entitic vol] 97.0 fL Normal 81-99 [facility] Comment on above: Performed By: #### L 100.0100, L500.2500 ####[facility] [address] [place], [address] Monocytes/100 WBC (Bld) 2.5 % Normal 0-10 [facility] Comment on above: Performed By: #### L 100.0100, L500.2500 ####[facility] [address] [place], [address] Neutrophils/100 WBC (Bld) 93.3 % High 47-70 [facility] Comment on above: Performed By: #### L 100.0100, L500.2500 ####[facility] [address] [place], [address] Nucleated RBC (Bld) [#/Vol] 0 10*3/uL Normal 0-5 [facility] Comment on above: Performed By: #### L 100.0100, L500.2500 ####[facility] [address] [place], [address] Platelet mean volume (Bld) [Entitic vol] 10.6 fL Normal 6.2-12.0 [facility] Comment on above: Performed By: #### L 100.0100, L500.2500 ####[facility] [address] [place], [address] Platelets (Bld) [#/Vol] 372 10*3/uL Normal 150-450 [facility] Comment on above: Performed By: #### L 100.0100, L500.2500 ####[facility] [address] [place], [address] RBC (Bld) [#/Vol] 4.69 10*6/uL Normal 4.2-5.4 [facility] Comment on above: Performed By: #### L 100.0100, L500.2500 ####[facility] [address] [place], [address] RDW SD 49.4 fl High 35.1-43.9 [facility] Comment on above: Performed By: #### L 100.0100, L500.2500 ####[facility] [address] [place], [address] WBC (Bld) [#/Vol] 20.5 10*3/uL High 4.4-11.0 [facility] Comment on above: Performed By: #### L 100.0100, L500.2500 ####[facility] [address] [place], [address] Carbon dioxide, total [Moles /volume] in Central venous bloodOrdered By: Willian Ovalles on 07-23-2024 CO2 [Moles/Vol] 23.1 mmol/L 21.0-32.0 [facility] Chloride assayOrdered By: Andrew Ovalles on 07-23-2024 Chloride [Moles/Vol] 100 mmol/L 98-108 [facility] Eosinophil percentageOrdered By: Willian Ovalles on 07-23-2024 Eosinophils/100 WBC (Bld) 0.0 % 0-5 [facility] Erythrocyte distribution wid th ratioOrdered By: Willian Ovalles on 07-23-2024 Erythrocyte distribution width (RBC) [Ratio] 13.9 % 11.6-14.6 [facility] Erythrocyte distribution wid th standard deviationOrdered By: Willian Ovalles on 07-23-2024 Erythrocyte distribution width (RBC) [Ratio] 49.4 fl High 35.1-43.9 [facility] Glomerular filtration rate ( GFR) estimation/1.73 sq m using serum, plasma, or whole bOrdered By: Willian Ovalles on 07-23-2024 GFR/1.73 sq M.predicted among non-blacks MDRD (S/P/Bld) [Vol rate/Area] 78 mL/min/{1.73_m2} >60 [facility] Comment on above: mL/min/1.73m2 CKD-EP I Creatinine Equation (2020) Hematocrit Auto (Bld) [Volum e fraction]Ordered By: Willian Ovalles on 07-23-2024 Hematocrit (Bld) [Volume fraction] 45.5 % 37-47 [facility] Hemoglobin measurementOrdere d By: Willian Ovalles on 07-23-2024 Hemoglobin (Bld) [Mass/Vol] 15.2 g/dL High 12.0-15.0 [facility] Immature granulocytes/100 WB C Auto (Bld)Ordered By: Willian Ovalles on 07-23-2024 Immature granulocytes/100 WBC (Bld) 1.500 % High 0.0-0.9 [facility] Comment on above: IG% - Immature Granu locytes (promyelocytes, myelocytes and metamyelocytes) > 1% indicates that a LEFT SHIFT is Present. MCV (mean corpuscular volume ) determinationOrdered By: Willian Ovalles on 07-23-2024 MCV (RBC) [Entitic vol] 97.0 fL 81-99 [facility] Mean corpuscular hemoglobin (MCH) determinationOrdered By: Willian Ovalles on 07-23-2024 MCH (RBC) [Entitic mass] 32.4 pg High 27.0-32.0 [facility] Mean corpuscular hemoglobin concentration (MCHC) determinationOrdered By: Willian Ovalles on 07-23-2024 MCHC (RBC) [Mass/Vol] 33.4 g/dL 32-36 [facility] Mean platelet volume determi nationOrdered By: Willian Ovalles on 07-23-2024 Platelet mean volume (Bld) [Entitic vol] 10.6 fL 6.2-12.0 [facility] Monocyte percentageOrdered B y: Willian Ovalles on 07-23-2024 Monocytes/100 WBC (Bld) 2.5 % 0-10 [facility] Neutrophil percentageOrdered By: Willian Ovalles on 07-23-2024 Neutrophils/100 WBC (Bld) 93.3 % High 47-70 [facility] Nucleated red blood cell per centageOrdered By: Willian Ovalles on 07-23-2024 Nucleated RBC/100 WBC (Bld) [Ratio] 0 % 0-5 [facility] Platelet countOrdered By: Andrew Ovalles on 07-23-2024 Platelets (Bld) [#/Vol] 372 10*3/uL 150-450 [facility] Potassium measurement (mass/ volume)Ordered By: Willian Ovalles on 07-23-2024 Potassium (Unsp spec) [Mass/Vol] 4.6 mmol/L 3.3-5.1 [facility] Comment on above: Hemolysis present, R esults could be affected. RBC Auto (Bld) [#/Vol]Ordere d By: Willian Ovalles on 07-23-2024 RBC (Bld) [#/Vol] 4.69 10*6/uL 4.2-5.4 [facility] Serum creatinine measurement (mass/volume)Ordered By: Willian Ovalles on 07-23-2024 Creatinine [Mass/Vol] 0.93 mg/dL 0.70-1.20 [facility] Serum glucose measurement (m ass/volume)Ordered By: Willian Ovalles on 07-23-2024 Glucose [Mass/Vol] 99 mg/dL 70-99 [facility] Serum or plasma calcium leslie urement (mass/volume)Ordered By: Willian Ovalles on 07-23-2024 Calcium [Mass/Vol] 9.4 mg/dL 7.6-11.0 [facility] Serum or plasma urea nitroge n measurement (mass/volume)Ordered By: Willian Ovalles on 07-23-2024 Urea nitrogen [Mass/Vol] 30 mg/dL High 4-19 [facility] Sodium levelOrdered By: Willian Ovalles on 07-23-2024 Sodium [Moles/Vol] 136 mmol/L 133-145 [facility] Venous duplex ultrasound rep ortOrdered By: Willian Colón on 07-23-2024 US Vein [facility] [address] [place] [address] Venous Duplex US - Wan Extrem 07/23/24 0803 MR#: [id number] Acct: [id number] Name: MICHELLE MITCHELL Rep #:[id number] : 1980 43 From: Willian Arciniega [...] and/or faxed to Dr Bishop / PCU courseware developer Jody. VL/Venous Duplex US - Wan Extrem Interpretation Summary Deep veins of the bilateral lower extremities are patent and compressible segmentally. There is no evidence of bilateral lower extremity deep vein thrombosis. The bilateral great saphenous veins appearpatent and compressible segmentally. Ordering Physician: Sergio Umaña Performed By: Wei Kessler, T 07/23/24 1157 Date _ Willian Colón MD CC: Dr. Sergio Umaña DO; Dr. Willian Ovalles DO; Dr. Dex Wilkinson MD ~ Date Dictated: 07/23/24 0803 Date Transcribed: 07/23/24 115 Manager Of Clinical: Signed [facility] Work Phone: White blood cell (WBC) count Ordered By: Willian Ovalles on 07-23-2024 WBC (Bld) [#/Vol] 20.5 10*3/uL High 4.4-11.0 [facility] Basic Metabolic Profile (BMP )on 07-22-2024 BUN/CRE 27.6 RATIO High 10-20 [facility] Comment on above: Performed By: #### L 100.0100, L500.2500 ####[facility] [address] [place], [address] Calcium [Mass/Vol] 9.1 mg/dL Normal 7.6-11.0 [facility] Comment on above: Performed By: #### L 100.0100, L500.2500 ####[facility] [address] [place], [address] Chloride [Moles/Vol] 100 mmol/L Normal 98-108 [facility] Comment on above: Performed By: #### L 100.0100, L500.2500 ####[facility] [address] [place], [address] CO2 [Moles/Vol] 20.0 mmol/L Low 21.0-32.0 [facility] Comment on above: Performed By: #### L 100.0100, L500.2500 ####[facility] [address] [place], [address] Creatinine [Mass/Vol] 1.05 mg/dL Normal 0.70-1.20 [facility] Comment on above: Performed By: #### L 100.0100, L500.2500 ####[facility] [address] [place], [address] ECRCL 59.04 ml/min Normal 50-250 [facility] Comment on above: Performed By: #### L 100.0100, L500.2500 ####[facility] [address] [place], [address] GAP 15 Normal 5-15 [facility] Comment on above: Performed By: #### L 100.0100, L500.2500 ####[facility] [address] [place], [address] GFR/1.73 sq M.predicted among non-blacks MDRD (S/P/Bld) [Vol rate/Area] 67 mL/min/{1.73_m2} Normal >60 [facility] Comment on above: Result Comment: mL/m in/1.73m2 CKD-EPI Creatinine Equation (2020) Performed By: #### L 100.0100, L500.2500 ####[facility] [address] [place], [address] Glucose [Mass/Vol] 112 mg/dL High 70-99 [facility] Comment on above: Performed By: #### L 100.0100, L500.2500 ####[facility] [address] [place], [address] Potassium [Moles/Vol] 4.0 mmol/L Normal 3.3-5.1 [facility] Comment on above: Performed By: #### L 100.0100, L500.2500 ####[facility] [address] [place], [address] Sodium [Moles/Vol] 135 mmol/L Normal 133-145 [facility] Comment on above: Performed By: #### L 100.0100, L500.2500 ####[facility] [address] [place], [address] Urea nitrogen [Mass/Vol] 29 mg/dL High 4-19 [facility] Comment on above: Performed By: #### L 100.0100, L500.2500 ####[facility] [address] [place], [address] Blood cultureOrdered By: Amber Ovalles on 07-22-2024 Bacteria identified Cx Nom (Bld) No growth in 5 days. [facility] Bacteria identified Cx Nom (Bld) No growth in 5 days. [facility] CBC W/Diff, Automatedon 07-12 Absolute Lymph 0.95 X10 3/uL Normal 0.83-4.51 [facility] Comment on above: Performed By: #### L 100.0100, L500.2500 ####[facility] [address] [place], [address] Absolute Neut 13.0 X10 3/uL High 2.0-7.7 [facility] Comment on above: Performed By: #### L 100.0100, L500.2500 ####[facility] [address] [place], [address] Basophils/100 WBC (Bld) 0.3 % Normal 0-1 [facility] Comment on above: Performed By: #### L 100.0100, L500.2500 ####[facility] [address] [place], [address] Eosinophils/100 WBC (Bld) 0.2 % Normal 0-5 [facility] Comment on above: Performed By: #### L 100.0100, L500.2500 ####[facility] [address] [place], [address] Erythrocyte distribution width (RBC) [Ratio] 14.1 % Normal 11.6-14.6 [facility] Comment on above: Performed By: #### L 100.0100, L500.2500 ####[facility] [address] [place], [address] Hematocrit (Bld) [Volume fraction] 39.1 % Normal 37-47 [facility] Comment on above: Performed By: #### L 100.0100, L500.2500 ####[facility] [address] [place], [address] Hemoglobin (Bld) [Mass/Vol] 12.7 g/dL Normal 12.0-15.0 [facility] Comment on above: Performed By: #### L 100.0100, L500.2500 ####[facility] [address] [place], [address] IG% 1.200 High 0.0-0.9 [facility] Comment on above: Result Comment: IG% - Immature Granulocytes (promyelocytes, myelocytes andmetamyelocytes) > 1% indicates that a LEFT SHIFT is Present. Performed By: #### L 100.0100, L500.2500 ####[facility] [address] [place], [address] Lymphocytes/100 WBC (Bld) 6.4 % Low 19-41 [facility] Comment on above: Performed By: #### L 100.0100, L500.2500 ####[facility] [address] [place], [address] MCH (RBC) [Entitic mass] 32.1 pg High 27.0-32.0 [facility] Comment on above: Performed By: #### L 100.0100, L500.2500 ####[facility] [address] [place], [address] MCHC (RBC) [Mass/Vol] 32.5 g/dL Normal 32-36 [facility] Comment on above: Performed By: #### L 100.0100, L500.2500 ####[facility] [address] [place], [address] MCV (RBC) [Entitic vol] 98.7 fL Normal 81-99 [facility] Comment on above: Performed By: #### L 100.0100, L500.2500 ####[facility] [address] [place], [address] Monocytes/100 WBC (Bld) 4.8 % Normal 0-10 [facility] Comment on above: Performed By: #### L 100.0100, L500.2500 ####[facility] [address] [place], [address] Neutrophils/100 WBC (Bld) 87.1 % High 47-70 [facility] Comment on above: Performed By: #### L 100.0100, L500.2500 ####[facility] [address] [place], [address] Nucleated RBC (Bld) [#/Vol] 0 10*3/uL Normal 0-5 [facility] Comment on above: Performed By: #### L 100.0100, L500.2500 ####[facility] [address] [place], [address] Platelet mean volume (Bld) [Entitic vol] 11.1 fL Normal 6.2-12.0 [facility] Comment on above: Performed By: #### L 100.0100, L500.2500 ####[facility] [address] [place], [address] Platelets (Bld) [#/Vol] 280 10*3/uL Normal 150-450 [facility] Comment on above: Performed By: #### L 100.0100, L500.2500 ####[facility] [address] [place], [address] RBC (Bld) [#/Vol] 3.96 10*6/uL Low 4.2-5.4 [facility] Comment on above: Performed By: #### L 100.0100, L500.2500 ####[facility] [address] [place], [address] RDW SD 51.6 fl High 35.1-43.9 [facility] Comment on above: Performed By: #### L 100.0100, L500.2500 ####[facility] [address] [place], [address] WBC (Bld) [#/Vol] 14.9 10*3/uL High 4.4-11.0 [facility] Comment on above: Performed By: #### L 100.0100, L500.2500 ####[facility] [address] [place], [address] Bilirubin, totalOrdered By: Sergio Whalen on 07-21-2024 Bilirubin [Mass/Vol] 0.59 mg/dL 0.00-1.30 [facility] CBC W/Diff, Automatedon 05-1 0-5 Absolute Lymph 0.59 X10 3/uL Low 0.83-4.51 [facility] Comment on above: Performed By: #### L 500.4050, L100.0100, L500.4100, L501.2300 ####[facility] [address] [place], [address] Absolute Neut 15.8 X10 3/uL High 2.0-7.7 [facility] Comment on above: Performed By: #### L 500.4050, L100.0100, L500.4100, L501.2300 ####[facility] [address] [place], [address] Basophils/100 WBC (Bld) 0.2 % Normal 0-1 [facility] Comment on above: Performed By: #### L 500.4050, L100.0100, L500.4100, L501.2300 ####[facility] [address] [place], [address] Eosinophils/100 WBC (Bld) 0.1 % Normal 0-5 [facility] Comment on above: Performed By: #### L 500.4050, L100.0100, L500.4100, L501.2300 ####[facility] [address] [place], [address] Erythrocyte distribution width (RBC) [Ratio] 14.2 % Normal 11.6-14.6 [facility] Comment on above: Performed By: #### L 500.4050, L100.0100, L500.4100, L501.2300 ####[facility] [address] [place], [address] Hematocrit (Bld) [Volume fraction] 41.0 % Normal 37-47 [facility] Comment on above: Performed By: #### L 500.4050, L100.0100, L500.4100, L501.2300 ####[facility] [address] [place], [address] Hemoglobin (Bld) [Mass/Vol] 13.6 g/dL Normal 12.0-15.0 [facility] Comment on above: Performed By: #### L 500.4050, L100.0100, L500.4100, L501.2300 ####[facility] [address] [place], [address] IG% 1.000 High 0.0-0.9 [facility] Comment on above: Result Comment: IG% - Immature Granulocytes (promyelocytes, myelocytes andmetamyelocytes) > 1% indicates that a LEFT SHIFT is Present. Performed By: #### L 500.4050, L100.0100, L500.4100, L501.2300 ####[facility] [address] [place], [address] Lymphocytes/100 WBC (Bld) 3.5 % Low 19-41 [facility] Comment on above: Performed By: #### L 500.4050, L100.0100, L500.4100, L501.2300 ####[facility] [address] [place], [address] MCH (RBC) [Entitic mass] 32.3 pg High 27.0-32.0 [facility] Comment on above: Performed By: #### L 500.4050, L100.0100, L500.4100, L501.2300 ####[facility] [address] [place], [address] MCHC (RBC) [Mass/Vol] 33.2 g/dL Normal 32-36 [facility] Comment on above: Performed By: #### L 500.4050, L100.0100, L500.4100, L501.2300 ####[facility] [address] [place], [address] MCV (RBC) [Entitic vol] 97.4 fL Normal 81-99 [facility] Comment on above: Performed By: #### L 500.4050, L100.0100, L500.4100, L501.2300 ####[facility] [address] [place], [address] Monocytes/100 WBC (Bld) 2.6 % Normal 0-10 [facility] Comment on above: Performed By: #### L 500.4050, L100.0100, L500.4100, L501.2300 ####[facility] [address] [place], [address] Neutrophils/100 WBC (Bld) 92.6 % High 47-70 [facility] Comment on above: Performed By: #### L 500.4050, L100.0100, L500.4100, L501.2300 ####[facility] [address] [place], [address] Nucleated RBC (Bld) [#/Vol] 0 10*3/uL Normal 0-5 [facility] Comment on above: Performed By: #### L 500.4050, L100.0100, L500.4100, L501.2300 ####[facility] [address] [place], [address] Platelet mean volume (Bld) [Entitic vol] 10.3 fL Normal 6.2-12.0 [facility] Comment on above: Performed By: #### L 500.4050, L100.0100, L500.4100, L501.2300 ####[facility] [address] [place], [address] Platelets (Bld) [#/Vol] 307 10*3/uL Normal 150-450 [facility] Comment on above: Performed By: #### L 500.4050, L100.0100, L500.4100, L501.2300 ####[facility] [address] [place], [address] RBC (Bld) [#/Vol] 4.21 10*6/uL Normal 4.2-5.4 [facility] Comment on above: Performed By: #### L 500.4050, L100.0100, L500.4100, L501.2300 ####[facility] [address] [place], [address] RDW SD 51.1 fl High 35.1-43.9 [facility] Comment on above: Performed By: #### L 500.4050, L100.0100, L500.4100, L501.2300 ####[facility] [address] [place], [address] WBC (Bld) [#/Vol] 17.0 10*3/uL High 4.4-11.0 [facility] Comment on above: Performed By: #### L 500.4050, L100.0100, L500.4100, L501.2300 ####[facility] [address] [place], [address] Calculated very low density lipoprotein (VLDL) cholesterol measurementOrdered By: Sergio Whalen on 07-21-2024 Calculated very low density lipoprotein (VLDL) cholesterol measurement 45 mg/dL High 5-40 [facility] Comprehensive Metabolic Prof ilon 07-21-2024 Albumin [Mass/Vol] 4.4 g/dL Normal 3.5-5.0 [facility] Comment on above: Performed By: #### L 500.4050, L100.0100, L500.4100, L501.2300 ####[facility] [address] [place], [address] Albumin/Globulin [Mass ratio] 1.6 {ratio} Normal 0.9-2.4 [facility] Comment on above: Performed By: #### L 500.4050, L100.0100, L500.4100, L501.2300 ####[facility] [address] [place], [address] ALK PHOS 118 U/L High 35-104 [facility] Comment on above: Performed By: #### L 500.4050, L100.0100, L500.4100, L501.2300 ####[facility] [address] [place], [address] ALT [Catalytic activity/Vol] 35 U/L Normal <=34 [facility] Comment on above: Performed By: #### L 500.4050, L100.0100, L500.4100, L501.2300 ####[facility] [address] [place], [address] AST [Catalytic activity/Vol] 29 U/L Normal <=31 [facility] Comment on above: Performed By: #### L 500.4050, L100.0100, L500.4100, L501.2300 ####[facility] [address] [place], [address] Bilirubin [Mass/Vol] 0.59 mg/dL Normal 0.00-1.30 [facility] Comment on above: Performed By: #### L 500.4050, L100.0100, L500.4100, L501.2300 ####[facility] [address] [place], [address] BUN/CRE 23.1 RATIO High 10-20 [facility] Comment on above: Performed By: #### L 500.4050, L100.0100, L500.4100, L501.2300 ####[facility] [address] [place], [address] Calcium [Mass/Vol] 9.3 mg/dL Normal 7.6-11.0 [facility] Comment on above: Performed By: #### L 500.4050, L100.0100, L500.4100, L501.2300 ####[facility] [address] [place], [address] Chloride [Moles/Vol] 102 mmol/L Normal 98-108 [facility] Comment on above: Performed By: #### L 500.4050, L100.0100, L500.4100, L501.2300 ####[facility] [address] [place], [address] CO2 [Moles/Vol] 19.4 mmol/L Low 21.0-32.0 [facility] Comment on above: Performed By: #### L 500.4050, L100.0100, L500.4100, L501.2300 ####[facility] [address] [place], [address] Creatinine [Mass/Vol] 0.99 mg/dL Normal 0.70-1.20 [facility] Comment on above: Performed By: #### L 500.4050, L100.0100, L500.4100, L501.2300 ####[facility] [address] [place], [address] ECRCL 62.62 ml/min Normal 50-250 [facility] Comment on above: Performed By: #### L 500.4050, L100.0100, L500.4100, L501.2300 ####[facility] [address] [place], [address] GAP 14 Normal 5-15 [facility] Comment on above: Performed By: #### L 500.4050, L100.0100, L500.4100, L501.2300 ####[facility] [address] [place], [address] GFR/1.73 sq M.predicted among non-blacks MDRD (S/P/Bld) [Vol rate/Area] 72 mL/min/{1.73_m2} Normal >60 [facility] Comment on above: Result Comment: mL/m in/1.73m2 CKD-EPI Creatinine Equation (2020) Performed By: #### L 500.4050, L100.0100, L500.4100, L501.2300 ####[facility] [address] [place], [address] Globulin (S) [Mass/Vol] 2.6 g/dL Normal 2.2-4.2 [facility] Comment on above: Performed By: #### L 500.4050, L100.0100, L500.4100, L501.2300 ####[facility] [address] [place], [address] Glucose [Mass/Vol] 131 mg/dL High 70-99 [facility] Comment on above: Performed By: #### L 500.4050, L100.0100, L500.4100, L501.2300 ####[facility] [address] [place], [address] Potassium [Moles/Vol] 4.8 mmol/L Normal 3.3-5.1 [facility] Comment on above: Performed By: #### L 500.4050, L100.0100, L500.4100, L501.2300 ####[facility] [address] [place], [address] Sodium [Moles/Vol] 135 mmol/L Normal 133-145 [facility] Comment on above: Performed By: #### L 500.4050, L100.0100, L500.4100, L501.2300 ####[facility] [address] [place], [address] T PROT 7.0 g/dL Normal 5.9-8.4 [facility] Comment on above: Performed By: #### L 500.4050, L100.0100, L500.4100, L501.2300 ####[facility] [address] [place], [address] Urea nitrogen [Mass/Vol] 23 mg/dL High 4-19 [facility] Comment on above: Performed By: #### L 500.4050, L100.0100, L500.4100, L501.2300 ####[facility] [address] [place], [address] Consultation - Cardiologyon 07-21-2024 Consultation - Cardiology Normal [facility] Echo Completeon 07-21-2024 Echo Complete Normal [facility] Echocardiogram study reportO rdered By: Saman Clay on 07-21-2024 Study report [facility] [address] [place] [address] Echo Complete 07/21/24 1046 MR#: [id number] Acct: [id number] Name: MICHELLE MITCHELL Rep #:[id number] 1 : 1980 43 From: Saman Clay MD Attending Dr: Dr. Willian Ovalles, Status: ADM IN Ordering Dr: Sergio Umaña DO Date: 07/21/24 Location: [facility] Sex: F C Admitted: 07/21/24 Reason For [...] Dex Wilkinson Performed By: Maru Kothari RDCS 07/21/24 1336 Date _ Saman Clay MD CC: Dr. Sergio Umaña DO; Dr. Willian Ovalles DO; Dr. Dex Wilkinson MD ~ Date Dictated: 07/21/24 1046 Date Transcribed: 07/21/24 1336 Manager Of Clinical: Signed [facility] Work Phone: Hemoglobin A1con 07-21-2024 HbA1c (Bld) [Mass fraction] 5.6 % Normal <=5.6 [facility] Comment on above: Result Comment: Norm al < 5.7 % Prediabetic 5.7 - 6.4 % Diabetic >or= 6.5 % Please note range changes. Performed By: #### L 501.9520, L501.9985 ####[facility] [address] [place], [place], [address] L499.0043on 07-21-2024 Trop T High Sen 37 ng/L High <=14 [facility] Comment on above: Performed By: #### L 499.0043 ####[facility] [address] [place], [place], [address] LDL calc ser/plasOrdered By: Sergio Whalen on 07-21-2024 Cholesterol in LDL [Mass/Vol] 92 mg/dL [facility] Comment on above: Psiywgbapc=846-024 m g/dL & Higher Yevo=336 mg/dL or greater Laboratory - Chemistry and C hemistry - challengeOrdered By: Sergio Whalen on 07-21-2024 AST [Catalytic activity/Vol] 29 U/L <32 [facility] Lipid Profileon 07-21-2024 CHOL:HDL 4.43 Normal [facility] Comment on above: Performed By: #### L 500.4050, L100.0100, L500.4100, L501.2300 ####[facility] [address] [place], [place], [address] Cholesterol [Mass/Vol] 177 mg/dL Normal <=200 [facility] Comment on above: Result Comment: Chol esterol level, Desirable <200 mg/dLBorderline high cholesterol 200-239 mg/dLHigh cholesterol >=240 mg/dLRecommendations of the NCEP Adult Treatment Panel for thefollowing risk-cutoff thresholds for the [place] Americanpopulation. Performed By: #### L 500.4050, L100.0100, L500.4100, L501.2300 ####[facility] [address] [place], [address] Cholesterol in HDL [Mass/Vol] 40 mg/dL Normal [facility] Comment on above: Result Comment: Sophie onal Cholesterol Education Program (NCEP) guidelines:<40 mg/dL: Low HDL-cholesterol (major risk factor for CHD)>= 60 mg/dL: High HDL-cholesterol (negative risk factor forCHD)HDL-cholesterol is affected by a number of factors, e.g.smoking, exercise, hormones, sex and age. Performed By: #### L 500.4050, L100.0100, L500.4100, L501.2300 ####[facility] [address] [place], [address] Cholesterol in LDL [Mass/Vol] 92 mg/dL Normal [facility] Comment on above: Result Comment: Bord wrgvvb=963-360 mg/dL Higher Wztv=532 mg/dL or greater Performed By: #### L 500.4050, L100.0100, L500.4100, L501.2300 ####[facility] [address] [place], [address] Cholesterol in VLDL [Mass/Vol] 45 mg/dL High 5-40 [facility] Comment on above: Performed By: #### L 500.4050, L100.0100, L500.4100, L501.2300 ####[facility] [address] [place], [address] Triglyceride [Mass/Vol] 224 mg/dL High [facility] Comment on above: Result Comment: The drugs N-Acetylcysteine and Metamizole may falselydepress this assay.Normal range: <150 mg/dLBorderline High: 150-199 mg/dLHigh: 200-499 mg/dLVery High: >500 mg/dL Performed By: #### L 500.4050, L100.0100, L500.4100, L501.2300 ####[facility] [address] [place], [address] Magnesiumon 07-21-2024 Magnesium [Mass/Vol] 1.9 mg/dL Normal 1.5-2.2 [facility] Comment on above: Performed By: #### L 501.5200 ####[facility] [address] [place], [address] No Panel InformationOrdered By: Sergio Whalen on 07-21-2024 29 U/L <32 [facility] Phosphoruson 07-21-2024 Phosphate [Mass/Vol] 3.7 mg/dL Normal 2.7-4.5 [facility] Comment on above: Performed By: #### L 500.4050, L100.0100, L500.4100, L501.2300 ####[facility] [address] [place], [address] Screening total cholesterol/ high density lipoprotein (HDL) cholesterol ratioOrdered By: Sergio Whalen on 07-21-2024 Cholesterol.total/Choles terol in HDL [Mass ratio] 4.43 {ratio} [facility] Serum globulin measurementOr dered By: Sergio Whalen on 07-21-2024 Globulin (S) [Mass/Vol] 2.6 g/dL 2.2-4.2 [facility] Serum or plasma alanine hair otransferase (ALT) measurementOrdered By: Sergio Whalen on 07-21-2024 ALT [Catalytic activity/Vol] 35 U/L <35 [facility] Serum or plasma albumin leslie urement (mass/volume)Ordered By: Sergio Whalen on 07-21-2024 Albumin [Mass/Vol] 4.4 g/dL 3.5-5.0 [facility] Serum or plasma albumin/glob ulin mass ratioOrdered By: Sergio Whalen on 07-21-2024 Albumin/Globulin [Mass ratio] 1.6 {ratio} 0.9-2.4 [facility] Serum or plasma alkaline delfin sphatase measurementOrdered By: Sergio Whalen on 07-21-2024 ALP [Catalytic activity/Vol] 118 U/L High 35-104 [facility] Serum or plasma cholesterol in HDL measurement (mass/volume)Ordered By: Sergio Whalen on 07-21-2024 Cholesterol in HDL [Mass/Vol] 40 mg/dL >40 [facility] Comment on above: National Cholesterol Education Program (NCEP) guidelines:<40 mg/dL: Low HDL-cholesterol (major risk factor for CHD)>= 60 mg/dL: High HDL-cholesterol (negative risk factor for CHD)HDL-cholesterol is affected by a number of factors, e.g. smoking, exercise, hormones, sex and age. Serum or plasma cholesterol measurement (mass/volume)Ordered By: Sergio Whalen on 07-21-2024 Cholesterol [Mass/Vol] 177 mg/dL <201 [facility] Comment on above: Cholesterol level, D esirable <200 mg/dLBorderline high cholesterol 200-239 mg/dLHigh cholesterol >=240 mg/dLRecommendations of the NCEP Adult Treatment Panel for the following risk-cutoff thresholds for the [place] population. Thyroid Stim Hormone (TSH)on 07-21-2024 TSH 1.400 uIU/mL Normal 0.300-4.20 0 [facility] Comment on above: Order Comment: ADD O N Performed By: #### L 501.9520, L501.9985 ####[facility] [address] [place], [address] Total proteinOrdered By: Louis Whalen on 07-21-2024 Protein [Mass/Vol] 7.0 g/dL 5.9-8.4 [facility] Triglycerides measurementOrd ered By: Sergio Whalen on 07-21-2024 Triglyceride [Mass/Vol] 224 mg/dL High <199 [facility] Comment on above: The drugs N-Acetylcy steine and Metamizole may falsely depress this assay. Normal range: <150 mg/dLBorderline High: 150-199 mg/dLHigh: 200-499 mg/dLVery High: >500 mg/dL Venous Duplex US - Wan Extre mon 07-21-2024 Venous Duplex US - Wan Extrem Normal [facility] Abdomen/Pelvis W IV Cont ONL Yon 07-20-2024 Abdomen/Pelvis W IV Cont ONLY Normal [facility] Absolute lymphocyte countOrd ered By: Carlos Nair on 07-20-2024 Lymphocytes Auto (Unsp spec) [#/Vol] 0.38 10*3/uL Low 0.83-4.51 [facility] Absolute neutrophil countOrd ered By: Carlos Nair on 07-20-2024 Neutrophils (Bld) [#/Vol] 13.6 10*3/uL High 2.0-7.7 [facility] Anion gap in Serum or Plasma Ordered By: Carlos Nair on 07-20-2024 Anion gap [Moles/Vol] 13 mmol/L 5-15 [facility] Automated lymphocyte count a s percentage of total leukocytesOrdered By: Carlos Nair on 07-20-2024 Lymphocytes/100 WBC Auto (Unsp spec) 2.7 % Low 19-41 [facility] BUN/creatinine ratioOrdered By: Carlos Nair on 07-20-2024 Urea nitrogen/Creatinine [Mass ratio] 21.8 mg/mg High 10-20 [facility] Basophil percentageOrdered B y: Carlos Nair on 07-20-2024 Basophils/100 WBC (Bld) 0.1 % 0-1 [facility] Bilirubin Test strip Ql (U)O rdered By: Carlos Nair on 07-20-2024 Bilirubin Ql (U) Negative Negative [facility] Bilirubin directOrdered By: Carlos Nair on 07-20-2024 Bilirubin.direct [Mass/Vol] 0.29 mg/dL 0.00-0.30 [facility] Bilirubin, totalOrdered By: Carlos Nair on 07-20-2024 Bilirubin [Mass/Vol] 0.61 mg/dL 0.00-1.30 [facility] CBC W/Diff, Automatedon Absolute Lymph 0.38 X10 3/uL Low 0.83-4.51 [facility] Comment on above: Performed By: #### L 500.3400, L300.8000, L100.0100, L503.7505, L501.2450, L500.4050 ####[facility] [address] [place], [address] Absolute Neut 13.6 X10 3/uL High 2.0-7.7 [facility] Comment on above: Performed By: #### L 500.3400, L300.8000, L100.0100, L503.7505, L501.2450, L500.4050 ####[facility] [address] [place], [address] Basophils/100 WBC (Bld) 0.1 % Normal 0-1 [facility] Comment on above: Performed By: #### L 500.3400, L300.8000, L100.0100, L503.7505, L501.2450, L500.4050 ####[facility] [address] [place], [address] Eosinophils/100 WBC (Bld) 0.0 % Normal 0-5 [facility] Comment on above: Performed By: #### L 500.3400, L300.8000, L100.0100, L503.7505, L501.2450, L500.4050 ####[facility] [address] [place], [address] Erythrocyte distribution width (RBC) [Ratio] 14.1 % Normal 11.6-14.6 [facility] Comment on above: Performed By: #### L 500.3400, L300.8000, L100.0100, L503.7505, L501.2450, L500.4050 ####[facility] [address] [place], [address] Hematocrit (Bld) [Volume fraction] 40.2 % Normal 37-47 [facility] Comment on above: Performed By: #### L 500.3400, L300.8000, L100.0100, L503.7505, L501.2450, L500.4050 ####[facility] [address] [place], [address] Hemoglobin (Bld) [Mass/Vol] 13.2 g/dL Normal 12.0-15.0 [facility] Comment on above: Performed By: #### L 500.3400, L300.8000, L100.0100, L503.7505, L501.2450, L500.4050 ####[facility] [address] [place], [address] IG% 1.000 High 0.0-0.9 [facility] Comment on above: Result Comment: IG% - Immature Granulocytes (promyelocytes, myelocytes andmetamyelocytes) > 1% indicates that a LEFT SHIFT is Present. Performed By: #### L 500.3400, L300.8000, L100.0100, L503.7505, L501.2450, L500.4050 ####[facility] [address] [place], [address] Lymphocytes/100 WBC (Bld) 2.7 % Low 19-41 [facility] Comment on above: Performed By: #### L 500.3400, L300.8000, L100.0100, L503.7505, L501.2450, L500.4050 ####[facility] [address] [place], [address] MCH (RBC) [Entitic mass] 32.1 pg High 27.0-32.0 [facility] Comment on above: Performed By: #### L 500.3400, L300.8000, L100.0100, L503.7505, L501.2450, L500.4050 ####[facility] [address] [place], [address] MCHC (RBC) [Mass/Vol] 32.8 g/dL Normal 32-36 [facility] Comment on above: Performed By: #### L 500.3400, L300.8000, L100.0100, L503.7505, L501.2450, L500.4050 ####[facility] [address] [place], [address] MCV (RBC) [Entitic vol] 97.8 fL Normal 81-99 [facility] Comment on above: Performed By: #### L 500.3400, L300.8000, L100.0100, L503.7505, L501.2450, L500.4050 ####[facility] [address] [place], [address] Monocytes/100 WBC (Bld) 1.5 % Normal 0-10 [facility] Comment on above: Performed By: #### L 500.3400, L300.8000, L100.0100, L503.7505, L501.2450, L500.4050 ####[facility] [address] [place], [address] Neutrophils/100 WBC (Bld) 94.7 % High 47-70 [facility] Comment on above: Performed By: #### L 500.3400, L300.8000, L100.0100, L503.7505, L501.2450, L500.4050 ####[facility] [address] [place], [address] Nucleated RBC (Bld) [#/Vol] 0 10*3/uL Normal 0-5 [facility] Comment on above: Performed By: #### L 500.3400, L300.8000, L100.0100, L503.7505, L501.2450, L500.4050 ####[facility] [address] [place], [address] Platelet mean volume (Bld) [Entitic vol] 10.3 fL Normal 6.2-12.0 [facility] Comment on above: Performed By: #### L 500.3400, L300.8000, L100.0100, L503.7505, L501.2450, L500.4050 ####[facility] [address] [place], [address] Platelets (Bld) [#/Vol] 303 10*3/uL Normal 150-450 [facility] Comment on above: Performed By: #### L 500.3400, L300.8000, L100.0100, L503.7505, L501.2450, L500.4050 ####[facility] [address] [place], [address] RBC (Bld) [#/Vol] 4.11 10*6/uL Low 4.2-5.4 [facility] Comment on above: Performed By: #### L 500.3400, L300.8000, L100.0100, L503.7505, L501.2450, L500.4050 ####[facility] [address] [place], [address] RDW SD 51.0 fl High 35.1-43.9 [facility] Comment on above: Performed By: #### L 500.3400, L300.8000, L100.0100, L503.7505, L501.2450, L500.4050 ####[facility] [address] [place], [address] WBC (Bld) [#/Vol] 14.3 10*3/uL High 4.4-11.0 [facility] Comment on above: Performed By: #### L 500.3400, L300.8000, L100.0100, L503.7505, L501.2450, L500.4050 ####[facility] [address] [place], [address] CTA Chest W/WO Contraston CTA Chest W/WO Contrast Normal [facility] Carbon dioxide, total [Moles /volume] in Central venous bloodOrdered By: Carlos Nair on 07-20-2024 CO2 [Moles/Vol] 19.0 mmol/L Low 21.0-32.0 [facility] Chest 1 View (Portable)on Chest 1 View (Portable) Normal [facility] Chloride assayOrdered By: Brandy Nair on 07-20-2024 Chloride [Moles/Vol] 104 mmol/L 98-108 [facility] Comprehensive Metabolic Prof ilon 07-20-2024 Albumin/Globulin [Mass ratio] 1.7 {ratio} Normal 0.9-2.4 [facility] Comment on above: Performed By: #### L 500.3400, L300.8000, L100.0100, L503.7505, L501.2450, L500.4050 ####[facility] [address] [place], [address] BUN/CRE 21.8 RATIO High 10-20 [facility] Comment on above: Performed By: #### L 500.3400, L300.8000, L100.0100, L503.7505, L501.2450, L500.4050 ####[facility] [address] [place], [address] Calcium [Mass/Vol] 9.3 mg/dL Normal 7.6-11.0 [facility] Comment on above: Performed By: #### L 500.3400, L300.8000, L100.0100, L503.7505, L501.2450, L500.4050 ####[facility] [address] [place], [address] Chloride [Moles/Vol] 104 mmol/L Normal 98-108 [facility] Comment on above: Performed By: #### L 500.3400, L300.8000, L100.0100, L503.7505, L501.2450, L500.4050 ####[facility] [address] [place], [address] CO2 [Moles/Vol] 19.0 mmol/L Low 21.0-32.0 [facility] Comment on above: Performed By: #### L 500.3400, L300.8000, L100.0100, L503.7505, L501.2450, L500.4050 ####[facility] [address] [place], [address] Creatinine [Mass/Vol] 0.88 mg/dL Normal 0.70-1.20 [facility] Comment on above: Performed By: #### L 500.3400, L300.8000, L100.0100, L503.7505, L501.2450, L500.4050 ####[facility] [address] [place], [address] ECRCL 70.45 ml/min Normal 50-250 [facility] Comment on above: Performed By: #### L 500.3400, L300.8000, L100.0100, L503.7505, L501.2450, L500.4050 ####[facility] [address] [place], [address] GAP 13 Normal 5-15 [facility] Comment on above: Performed By: #### L 500.3400, L300.8000, L100.0100, L503.7505, L501.2450, L500.4050 ####[facility] [address] [place], [address] GFR/1.73 sq M.predicted among non-blacks MDRD (S/P/Bld) [Vol rate/Area] 83 mL/min/{1.73_m2} Normal >60 [facility] Comment on above: Result Comment: mL/m in/1.73m2 CKD-EPI Creatinine Equation (2020) Performed By: #### L 500.3400, L300.8000, L100.0100, L503.7505, L501.2450, L500.4050 ####[facility] [address] [place], [address] Glucose [Mass/Vol] 171 mg/dL High 70-99 [facility] Comment on above: Performed By: #### L 500.3400, L300.8000, L100.0100, L503.7505, L501.2450, L500.4050 ####[facility] [address] [place], [address] Potassium [Moles/Vol] 4.4 mmol/L Normal 3.3-5.1 [facility] Comment on above: Performed By: #### L 500.3400, L300.8000, L100.0100, L503.7505, L501.2450, L500.4050 ####[facility] [address] [place], [address] Sodium [Moles/Vol] 135 mmol/L Normal 133-145 [facility] Comment on above: Performed By: #### L 500.3400, L300.8000, L100.0100, L503.7505, L501.2450, L500.4050 ####[facility] [address] [place], [address] Urea nitrogen [Mass/Vol] 19 mg/dL Normal 4-19 [facility] Comment on above: Performed By: #### L 500.3400, L300.8000, L100.0100, L503.7505, L501.2450, L500.4050 ####[facility] [address] [place], [address] D-Dimer Quantitative (DVT/PE )on 07-20-2024 D-DIMER QUANT 1.06 FEU/ug/m Invalid Interpretation Code 0.27-0.49 [facility] Comment on above: Result Comment: D-Di denice ELEVATED (>0.49): Additional studies and clinicalassessments are indicated to conclude diagnosis of:Deep Vein Thrombosis (DVT) or Pulmonary Embolism (PE)CRITICAL VALUE CALLED TO 07/20/24 Naga Aguilera.RESULTS READ BACK BY SAME. Performed By: #### L 500.3400, L300.8000, L100.0100, L503.7505, L501.2450, L500.4050 ####[facility] [address] [place], [address] Emergency Department Summary on 07-20-2024 Emergency Department Summary Normal [facility] Eosinophil percentageOrdered By: Carlos Nair on 07-20-2024 Eosinophils/100 WBC (Bld) 0.0 % 0-5 [facility] Erythrocyte distribution wid th ratioOrdered By: Carlos Nair on 07-20-2024 Erythrocyte distribution width (RBC) [Ratio] 14.1 % 11.6-14.6 [facility] Erythrocyte distribution wid th standard deviationOrdered By: Carlos Nair on 07-20-2024 Erythrocyte distribution width (RBC) [Ratio] 51.0 fl High 35.1-43.9 [facility] Glomerular filtration rate ( GFR) estimation/1.73 sq m using serum, plasma, or whole bOrdered By: Carlos Nair on 07-20-2024 GFR/1.73 sq M.predicted among non-blacks MDRD (S/P/Bld) [Vol rate/Area] 83 mL/min/{1.73_m2} >60 [facility] Comment on above: mL/min/1.73m2 CKD-EP I Creatinine Equation (2020) H AND P Exam - Hospital[facility] 07-20-2024 H&P Exam - Hospitalist Normal [facility] Hematocrit Auto (Bld) [Volum e fraction]Ordered By: Carlos Nair on 07-20-2024 Hematocrit (Bld) [Volume fraction] 40.2 % 37-47 [facility] Hemoglobin A1c percentageOrd ered By: Sergio Whalen on 07-20-2024 HbA1c (Bld) [Mass fraction] 5.6 % <5.7 [facility] Comment on above: Normal < 5.7 % Predi abetic 5.7 - 6.4 % Diabetic >or= 6.5 % Please note range changes. Hemoglobin measurementOrdere d By: Carlos Nair on 07-20-2024 Hemoglobin (Bld) [Mass/Vol] 13.2 g/dL 12.0-15.0 [facility] Hyaline casts LM.LPF (Urine sed) [#/Area]Ordered By: Carlos Nair on 07-20-2024 Hyaline casts (Urine sed) [#/Area] 5 /[LPF] 0-5 [facility] Immature granulocytes/100 WB C Auto (Bld)Ordered By: Carlos Nair on 07-20-2024 Immature granulocytes/100 WBC (Bld) 1.000 % High 0.0-0.9 [facility] Comment on above: IG% - Immature Granu locytes (promyelocytes, myelocytes and metamyelocytes) > 1% indicates that a LEFT SHIFT is Present. Ketones Test strip Ql (U)Ord ered By: Carlos Nair on 07-20-2024 Ketones Ql (U) Negative Negative [facility] L499.0042on 07-20-2024 Trop T High Sen 36 ng/L High <=14 [facility] Comment on above: Performed By: #### L 499.0042 ####[facility] [address] [place], [address] L501.4021on 07-20-2024 Trop T High Sen 27 ng/L High <=14 [facility] Comment on above: Performed By: #### L 501.4021 ####[facility] [address] [place], [address] L503.7505on 07-20-2024 Natriuretic peptide B (Bld) [Mass/Vol] 6468 pg/mL High <=450 [facility] Comment on above: Result Comment: Hear t Failure Unlikely: < 300 pg/mLHeart Failure Likely< 50 Years: > 450 pg/mL50-75 Years: > 900 pg/mL>75 Years: > 1800 pg/mL Performed By: #### L 500.3400, L300.8000, L100.0100, L503.7505, L501.2450, L500.4050 ####[facility] [address] [place], [place], [address] Laboratory - Chemistry and C hemistry - challengeOrdered By: Carlos Nair on 07-20-2024 AST [Catalytic activity/Vol] 26 U/L <32 [facility] Lipaseon 07-20-2024 Lipase [Catalytic activity/Vol] 32 U/L Normal 13-75 [facility] Comment on above: Result Comment: Liam rader note:LIPASE revised reference range effective 22.New Lipase methodology. Expected to produce lower valuesthan the previous assay method.NEW Reference Range: 13 - 75 U/L Performed By: #### L 500.3400, L300.8000, L100.0100, L503.7505, L501.2450, L500.4050 ####[facility] [address] [place], [address] Lipase measurementOrdered By : Carlos Nair on 07-20-2024 Lipase [Catalytic activity/Vol] 32 U/L 13-75 [facility] Comment on above: Please note:LIPASE r evised reference range effective 22. New Lipase methodology. Expected to produce lower values than the previous assay method. NEW Reference Range: 13 - 75 U/L Liver Profileon 07-20-2024 Albumin [Mass/Vol] 4.3 g/dL Normal 3.5-5.0 [facility] Comment on above: Performed By: #### L 500.3400, L300.8000, L100.0100, L503.7505, L501.2450, L500.4050 ####[facility] [address] [place], [address] ALK PHOS 116 U/L High 35-104 [facility] Comment on above: Performed By: #### L 500.3400, L300.8000, L100.0100, L503.7505, L501.2450, L500.4050 ####[facility] [address] [place], [address] ALT [Catalytic activity/Vol] 34 U/L Normal <=34 [facility] Comment on above: Performed By: #### L 500.3400, L300.8000, L100.0100, L503.7505, L501.2450, L500.4050 ####[facility] [address] [place], [address] AST [Catalytic activity/Vol] 26 U/L Normal <=31 [facility] Comment on above: Performed By: #### L 500.3400, L300.8000, L100.0100, L503.7505, L501.2450, L500.4050 ####[facility] [address] [place], [address] Bilirubin [Mass/Vol] 0.61 mg/dL Normal 0.00-1.30 [facility] Comment on above: Performed By: #### L 500.3400, L300.8000, L100.0100, L503.7505, L501.2450, L500.4050 ####[facility] [address] [place], [address] Bilirubin.direct [Mass/Vol] 0.29 mg/dL Normal 0.00-0.30 [facility] Comment on above: Performed By: #### L 500.3400, L300.8000, L100.0100, L503.7505, L501.2450, L500.4050 ####[facility] [address] [place], [address] Globulin (S) [Mass/Vol] 2.5 g/dL Normal 2.2-4.2 [facility] Comment on above: Performed By: #### L 500.3400, L300.8000, L100.0100, L503.7505, L501.2450, L500.4050 ####[facility] [address] [place], [address] T PROT 6.8 g/dL Normal 5.9-8.4 [facility] Comment on above: Performed By: #### L 500.3400, L300.8000, L100.0100, L503.7505, L501.2450, L500.4050 ####[facility] [address] [place], [address] MCV (mean corpuscular volume ) determinationOrdered By: Carlos Nair on 07-20-2024 MCV (RBC) [Entitic vol] 97.8 fL 81-99 [facility] Magnesium measurement (mass/ volume)Ordered By: Sergio Whalen on 07-20-2024 Magnesium (Unsp spec) [Mass/Vol] 1.9 mg/dL 1.5-2.2 [facility] Mean corpuscular hemoglobin (MCH) determinationOrdered By: Carlos Nair on 07-20-2024 MCH (RBC) [Entitic mass] 32.1 pg High 27.0-32.0 [facility] Mean corpuscular hemoglobin concentration (MCHC) determinationOrdered By: Carlos Nair on 07-20-2024 MCHC (RBC) [Mass/Vol] 32.8 g/dL 32-36 [facility] Mean platelet volume determi nationOrdered By: Carlos Nair on 07-20-2024 Platelet mean volume (Bld) [Entitic vol] 10.3 fL 6.2-12.0 [facility] Microscopic analysis of urin e for red blood cells (RBC)Ordered By: Carlos Nair on 07-20-2024 Microscopic analysis of urine for red blood cells (RBC) 0-5 SEEN /hpf 0-5 [facility] Monocyte percentageOrdered B y: Carlos Nair on 07-20-2024 Monocytes/100 WBC (Bld) 1.5 % 0-10 [facility] Mucus LM Ql (Urine sed)Order ed By: Carlos Nair on 07-20-2024 Mucus Ql (Urine sed) 1+ /hpf [facility] Natriuretic peptide.B prohor abbey N-Terminal [Mass/volume] in Serum or PlasmaOrdered By: Carlos Nair on 07-20-2024 Natriuretic peptide.B prohormone N-Terminal [Mass/Vol] 6468 pg/mL High <450 [facility] Comment on above: Heart Failure Unlike ly: < 300 pg/mLHeart Failure Likely< 50 Years: > 450 pg/mL50-75 Years: > 900 pg/mL>75 Years: > 1800 pg/mL Neutrophil percentageOrdered By: Carlos Nair on 07-20-2024 Neutrophils/100 WBC (Bld) 94.7 % High 47-70 [facility] Nitrite Test strip Ql (U)Ord ered By: Carlos Nair on 07-20-2024 Nitrite Ql (U) Negative Negative [facility] Nucleated red blood cell per centageOrdered By: Carlos Nair on 07-20-2024 Nucleated RBC/100 WBC (Bld) [Ratio] 0 % 0-5 [facility] Platelet countOrdered By: Brandy Nair on 07-20-2024 Platelets (Bld) [#/Vol] 303 10*3/uL 150-450 [facility] Potassium measurement (mass/ volume)Ordered By: Carlos Nair on 07-20-2024 Potassium (Unsp spec) [Mass/Vol] 4.4 mmol/L 3.3-5.1 [facility] ,Urineon 07-20-2024 Beta HCG ( test) Ql (U) Negative Normal [facility] Comment on above: Result Comment: Very dilute urine specimens, as indicated by a low specificgravity, may not contain hr representative levels of hCG.If is still suspected, a first morning urinespecimen should be collected 48 hours later and tested. Performed By: #### L 400.0001, L400.7600 ####[facility] [address] [place], [address] Protein Test strip Ql (U)Ord ered By: Carlos Nair on 07-20-2024 Protein Ql (U) 100 mg/dl High Negative [facility] RBC Auto (Bld) [#/Vol]Ordere d By: Carlos Nair on 07-20-2024 RBC (Bld) [#/Vol] 4.11 10*6/uL Low 4.2-5.4 [facility] Serum creatinine measurement (mass/volume)Ordered By: Carlos Nair on 07-20-2024 Creatinine [Mass/Vol] 0.88 mg/dL 0.70-1.20 [facility] Serum globulin measurementOr dered By: Carlos aNir on 07-20-2024 Globulin (S) [Mass/Vol] 2.5 g/dL 2.2-4.2 [facility] Serum glucose measurement (m ass/volume)Ordered By: Carlos Nair on 07-20-2024 Glucose [Mass/Vol] 171 mg/dL High 70-99 [facility] Serum or plasma alanine hair otransferase (ALT) measurementOrdered By: Carlos Nair on 07-20-2024 ALT [Catalytic activity/Vol] 34 U/L <35 [facility] Serum or plasma albumin leslie urement (mass/volume)Ordered By: Carlos Nair on 07-20-2024 Albumin [Mass/Vol] 4.3 g/dL 3.5-5.0 [facility] Serum or plasma albumin/glob ulin mass ratioOrdered By: Carlos Nair on 07-20-2024 Albumin/Globulin [Mass ratio] 1.7 {ratio} 0.9-2.4 [facility] Serum or plasma alkaline delfin sphatase measurementOrdered By: Carlos Nair on 07-20-2024 ALP [Catalytic activity/Vol] 116 U/L High 35-104 [facility] Serum or plasma calcium leslie urement (mass/volume)Ordered By: Carlos Nair on 07-20-2024 Calcium [Mass/Vol] 9.3 mg/dL 7.6-11.0 [facility] Serum or plasma urea nitroge n measurement (mass/volume)Ordered By: Carlos Nair on 07-20-2024 Urea nitrogen [Mass/Vol] 19 mg/dL 4-19 [facility] Sodium levelOrdered By: Andrae Nair on 07-20-2024 Sodium [Moles/Vol] 135 mmol/L 133-145 [facility] Squamous epithelial cells de tection in urine sediment by light microscopyOrdered By: Carlos Nair on 07-20-2024 Epithelial cells.squamous LM Ql (Urine sed) 5-10 SEEN /hpf 5-10 [facility] TSH DL <= 0.005 mIU/L QnOrde red By: Sergio Whalen on 07-20-2024 TSH Qn 1.400 uIU/mL 0.300-4.20 0 [facility] Total proteinOrdered By: Jacinto Nair on 07-20-2024 Protein [Mass/Vol] 6.8 g/dL 5.9-8.4 [facility] Troponin T.cardiac [Mass/vol ume] in Serum or Plasma by High sensitivity methodOrdered By: Carlos Nair on 07-20-2024 Troponin T.cardiac High sensitivity method [Mass/Vol] 37 ng/L High <14 [facility] Troponin T.cardiac High sensitivity method [Mass/Vol] 36 ng/L High <14 [facility] Troponin T.cardiac High sensitivity method [Mass/Vol] 27 ng/L High <14 [facility] Urinalysis, Completeon 07-20 BACTERIA 2+ /hpf Normal None Seen [facility] Comment on above: Order Comment: CLEAN CATCH Performed By: #### L 400.0001, L400.7600 ####[facility] [address] [place], [address] CAST,HYALINE 5-10 SEEN Normal 0-5 [facility] Comment on above: Order Comment: CLEAN CATCH Performed By: #### L 400.0001, L400.7600 ####[facility] [address] [place], [address] EPI,SQUAMOUS 5-10 SEEN Normal 5-10 [facility] Comment on above: Order Comment: CLEAN CATCH Performed By: #### L 400.0001, L400.7600 ####[facility] [address] [place], [address] Mucus Ql (Urine sed) 1+ /hpf Normal [facility] Comment on above: Order Comment: CLEAN CATCH Performed By: #### L 400.0001, L400.7600 ####[facility] [address] [place], [address] RBC 0-5 SEEN Normal 0-5 [facility] Comment on above: Order Comment: CLEAN CATCH Performed By: #### L 400.0001, L400.7600 ####[facility] [address] [place], [address] BILIRUBIN URINE Negative Normal Negative [facility] Comment on above: Order Comment: CLEAN CATCH Performed By: #### L 400.0001, L400.7600 ####[facility] [address] [place], [address] Clarity (U) Clear Normal Clear [facility] Comment on above: Order Comment: CLEAN CATCH Performed By: #### L 400.0001, L400.7600 ####[facility] [address] [place], [address] Color (U) Straw Normal Yellow [facility] Comment on above: Order Comment: CLEAN CATCH Performed By: #### L 400.0001, L400.7600 ####[facility] [address] [place], [address] GLUCOSE, UR Normal Normal Normal [facility] Comment on above: Order Comment: CLEAN CATCH Performed By: #### L 400.0001, L400.7600 ####[facility] [address] [place], [address] KETONE UR Negative Normal Negative [facility] Comment on above: Order Comment: CLEAN CATCH Performed By: #### L 400.0001, L400.7600 ####[facility] [address] [place], [address] LEUK ESTERASE Negative Normal Negative [facility] Comment on above: Order Comment: CLEAN CATCH Performed By: #### L 400.0001, L400.7600 ####[facility] [address] [place], [address] Nitrite Ql (U) Negative Normal Negative [facility] Comment on above: Order Comment: CLEAN CATCH Performed By: #### L 400.0001, L400.7600 ####[facility] [address] [place], [address] OCCULT BLOOD-UR 25 /ul Abnormal Negative [facility] Comment on above: Order Comment: CLEAN CATCH Performed By: #### L 400.0001, L400.7600 ####[facility] [address] [place], [address] pH UR 6.0 Normal 5.0 - 8.0 [facility] Comment on above: Order Comment: CLEAN CATCH Performed By: #### L 400.0001, L400.7600 ####[facility] [address] [place], [address] PROT DIPSTX 100 mg/dl Abnormal Negative [facility] Comment on above: Order Comment: CLEAN CATCH Performed By: #### L 400.0001, L400.7600 ####[facility] [address] [place], [address] SP.GR. DIPSTX 1.020 Normal 1.002-1.03 0 [facility] Comment on above: Order Comment: CLEAN CATCH Performed By: #### L 400.0001, L400.7600 ####[facility] [address] [place], [address] UROBILI Normal Normal Normal [facility] Comment on above: Order Comment: CLEAN CATCH Performed By: #### L 400.0001, L400.7600 ####[facility] [address] [place], [address] WBC 0 SEEN Normal 0-5 [facility] Comment on above: Order Comment: CLEAN CATCH Performed By: #### L 400.0001, L400.7600 ####[facility] [address] [place], [address] Urine clarityOrdered By: Jacinto Nair on 07-20-2024 Clarity (U) Clear Clear [facility] Urine color determinationOrd ered By: Carlos Nair on 07-20-2024 Color (U) Straw Yellow [facility] Urine glucose detectionOrder ed By: Carlos Nair on 07-20-2024 Glucose Ql (U) Normal mg/dl Normal [facility] Urine leukocyte esterase det ection by dipstickOrdered By: Carlos Nair on 07-20-2024 Leukocyte esterase Test strip Ql (U) Negative Negative [facility] Urine pHOrdered By: Carlos mandel on 07-20-2024 pH (U) 6.0 [pH] 5.0 - 8.0 [facility] Urine testOrdered By: Carlos Nair on 07-20-2024 HCG ( test) Ql (U) Negative [facility] Comment on above: Very dilute urine sp ecimens, as indicated by a low specificgravity, may not contain hr representative levels of hCG. If is still suspected, a first morning urinespecimen should be collected 48 hours later and tested. Urine sediment bacteria coun t by microscopy (number/high power field)Ordered By: Carlos Nair on 07-20-2024 Bacteria LM.HPF (Urine sed) [#/Area] 2 /[HPF] None Seen [facility] Urine specific gravity measu rementOrdered By: Carlos Nair on 07-20-2024 Specific gravity (U) [Rel density] 1.020 1.002-1.03 0 [facility] Urine urobilinogen measureme ntOrdered By: Carlos Nair on 07-20-2024 Urobilinogen Ql (U) Normal mg/dl Normal [facility] White blood cell (WBC) count Ordered By: Carlos Nair on 07-20-2024 WBC (Bld) [#/Vol] 14.3 10*3/uL High 4.4-11.0 [facility] White blood cell countOrdere d By: Carlos Nair on 07-20-2024 White blood cell count 0 SEEN /hpf 0-5 [facility] Colonoscopy Reporton 025 Colonoscopy Report Normal [facility] EGD Reporton 07-12-2024 EGD Report Normal [facility] MR/POSTOP.ANEon 07-12-2024 MR/POSTOP.ANE [facility] MR/XETKRBZF8kd 07-12-2024 MR/POSTOPAN2 [facility] Surgery Specimen Level Amber 07-12-2024 Surgery Specimen Level IV [facility] Comment on above: Performed By: #### P SUIV ####[facility] [address] [place], [place], [address] MR/PAT.ANEon 07-11-2024 MR/PAT.ANE [facility] 12 Lead EKG performed by BMS on 07-10-2024 12 Lead EKG performed by BMS [facility] Cardiology Visit Reporton Cardiology Visit Report Normal [facility] MR/PAT.ANEon 07-10-2024 MR/PAT.ANE [facility] CNDSon 07-08-2024 CNDS HNO ID: [id number] Author: DEX WILKINSON MD Service: Family Practice [...] call for appointment?: Yes Dex Wilkinson MD [phone] [facility] [address] [place] [id number] PCP Requested Referral GENERAL: alert, no distress, [...] MD FOLLOW-UP APPOINTMENTS ALREADY SCHEDULED WITH A [facility] PROVIDER: No future appointments. ALLERGIES Allergen Reactions Prozac [Fluoxetine * Other: See Comments suicidal ideations Ativan [Lorazepam] Vomiting Azithromycin Intolerance [place] Anaphylaxis [place] Anaphylaxis pickles Fish Anaphylaxis Levofloxacin In D5w [...] Your Medications These medications were sent to [facility] [address] [place], [place] [id number] - [address] [place] [address] - [phone] [place], [place] [id number] dicyclomine 10 mg capsule oxyCODONE IR 5 mg immediate release tablet pantoprazole DR 40 mg tablet psyllium 3.4 gram packet sucralfate 1 gram tablet Additional Information Additional Health Information I Need to Kno (more content not included)... Normal [facility] CBC W Auto Differential pane l (Bld)on 07-07-2024 Basophils (Bld) [#/Vol] 0.03 10*3/uL Normal <0.11 [facility] Comment on above: Order Comment: Speci men Type: BLOOD SPECIMENOrdering Facility: [facility] Address: [address] [place] [address] Performed By: #### 5 7021-8 ####[facility] [id number] [address] STATES OF [facility] Basophils/100 WBC (Bld) 0.3 % Normal [facility] Comment on above: Order Comment: Speci men Type: BLOOD SPECIMENOrdering Facility: [facility] Address: [address] [place] [address] Performed By: #### 5 7021-8 ####[facility] [id number] [place] [address] [place] Differential cell count method Nom (Bld) Auto Normal [facility] Comment on above: Order Comment: Speci men Type: BLOOD SPECIMENOrdering Facility: [facility] Address: [address] [place] [place] [address] Performed By: #### 5 7021-8 ####[facility]ORY[facility] [id number] [place] [address] [place] Eosinophils (Bld) [#/Vol] 0.12 10*3/uL Normal <0.46 [facility] Comment on above: Order Comment: Speci men Type: BLOOD SPECIMENOrdering Facility: [facility] Address: [address] [place] [place] [address] Performed By: #### 5 7021-8 ####[facility] [id number] [place] [address] [place] Eosinophils/100 WBC (Bld) 1.4 % Normal [facility] Comment on above: Order Comment: Speci men Type: BLOOD SPECIMENOrdering Facility: [facility] Address: [address] [place] [place] [address] Performed By: #### 5 7021-8 ####[facility]ORY[facility] [id number] [address] [place] Erythrocyte distribution width (RBC) [Ratio] 14.4 % Normal 11.5-15.0 [facility] Comment on above: Order Comment: Speci men Type: BLOOD SPECIMENOrdering Facility: [facility] Address: [address] [place] [place] [address] Performed By: #### 5 7021-8 ####[facility] [id number] [address] [place] Hematocrit (Bld) [Volume fraction] 41.1 % Normal 36.0-46.0 [facility] Comment on above: Order Comment: Speci men Type: BLOOD SPECIMENOrdering Facility: [facility] Address: [address] [place] [place] [address] Performed By: #### 5 7021-8 ####[facility]ORY[facility] [id number] [place] [address] [place] [place] Hemoglobin (Bld) [Mass/Vol] 13.4 g/dL Normal 11.5-15.5 [facility] Comment on above: Order Comment: Speci men Type: BLOOD SPECIMENOrdering Facility: [facility] Address: [address] [place] [address] Performed By: #### 5 7021-8 ####[facility]ORATORYCLIA [id number] [place] [address] [place] Immature granulocytes (Bld) [#/Vol] 0.03 10*3/uL Normal <0.10 [facility] Comment on above: Order Comment: Speci men Type: BLOOD SPECIMENOrdering Facility: [facility] Address: [address] [place] [address] Performed By: #### 5 7021-8 ####[facility]ORATORYCLIA [id number] [address] [place] Immature granulocytes/100 WBC (Bld) 0.3 % Normal [facility] Comment on above: Order Comment: Speci men Type: BLOOD SPECIMENOrdering Facility: [facility] Address: [address] [place] [address] Performed By: #### 5 7021-8 ####[facility] LABORATORYCLIA [id number] [place] [address] [place] Lymphocytes (Bld) [#/Vol] 0.98 10*3/uL Low 1.00-4.00 [facility] Comment on above: Order Comment: Speci men Type: BLOOD SPECIMENOrdering Facility: [facility] Address: [address] [place] [address] Performed By: #### 5 7021-8 ####[facility]ORATORYCLIA [id number] [address] Lymphocytes/100 WBC (Bld) 11.1 % Normal [facility] Comment on above: Order Comment: Speci men Type: BLOOD SPECIMENOrdering Facility: [facility] Address: [address] [place] [address] Performed By: #### 5 7021-8 ####[facility]ORATORYCLIA [id number] [address] MCH (RBC) [Entitic mass] 31.8 pg Normal 26.0-34.0 [facility] Comment on above: Order Comment: Speci men Type: BLOOD SPECIMENOrdering Facility: [facility] Address: [address] [place] [address] Performed By: #### 5 7021-8 ####[facility] LABORATORYCLIA [id number] [address] [place] MCHC (RBC) [Mass/Vol] 32.6 g/dL Normal 30.5-36.0 [facility] Comment on above: Order Comment: Speci men Type: BLOOD SPECIMENOrdering Facility: [facility] Address: [address] [place] [address] Performed By: #### 5 7021-8 ####[facility] LABORATORYCLIA [id number] [address] MCV (RBC) [Entitic vol] 97.6 fL Normal 80.0-100.0 [facility] Comment on above: Order Comment: Speci men Type: BLOOD SPECIMENOrdering Facility: [facility] Address: [address] [place] [address] Performed By: #### 5 7021-8 ####[facility] LABORATORYCLIA [id number] [address] [place] Monocytes (Bld) [#/Vol] 0.44 10*3/uL Normal <0.87 [facility] Comment on above: Order Comment: Speci men Type: BLOOD SPECIMENOrdering Facility: [facility] Address: [address] [place] [address] Performed By: #### 5 7021-8 ####[facility] LABORATORYCLIA [id number] [address] Monocytes/100 WBC (Bld) 5.0 % Normal [facility] Comment on above: Order Comment: Speci men Type: BLOOD SPECIMENOrdering Facility: [facility] Address: [address] [place] [address] Performed By: #### 5 7021-8 ####[facility] LABORATORYCLIA [id number] [place] [address] [place] Neutrophils (Bld) [#/Vol] 7.19 10*3/uL Normal 1.45-7.50 [facility] Comment on above: Order Comment: Speci men Type: BLOOD SPECIMENOrdering Facility: [facility] Address: [address] [place] [address] Performed By: #### 5 7021-8 ####[facility] LABORATORYCLIA [id number] [address] [place] Neutrophils/100 WBC (Bld) 81.9 % Normal [facility] Comment on above: Order Comment: Speci men Type: BLOOD SPECIMENOrdering Facility: [facility] Address: [address] [place] [address] Performed By: #### 5 7021-8 ####[facility] LABORATORYCLIA [id number] [place] [address] [place] Nucleated RBC (Bld) [#/Vol] 10*3/uL Normal <0.01 [facility] Comment on above: Order Comment: Speci men Type: BLOOD SPECIMENOrdering Facility: [facility] Address: [address] [place] [address] Performed By: #### 5 7021-8 ####[facility] LABORATORYCLIA [id number] [address] [place] Nucleated RBC/100 WBC (Bld) [Ratio] 0.0 /100 WBC Normal [facility] Comment on above: Order Comment: Speci men Type: BLOOD SPECIMENOrdering Facility: [facility] Address: [address] [place] [address] Performed By: #### 5 7021-8 ####[facility] LABORATORYCLIA [id number] [address] [place] Platelet mean volume (Bld) [Entitic vol] 10.3 fL Normal 9.0-12.7 [facility] Comment on above: Order Comment: Speci men Type: BLOOD SPECIMENOrdering Facility: [facility] Address: [address] [place] [address] Performed By: #### 5 7021-8 ####[facility] LABORATORYCLIA [id number] [address] [place] Platelets (Bld) [#/Vol] 241 10*3/uL Normal 150-400 [facility] Comment on above: Order Comment: Speci men Type: BLOOD SPECIMENOrdering Facility: [facility] Address: [address] [place] [address] Performed By: #### 5 7021-8 ####[facility] LABORATORYCLIA [id number] [place] [address] [place] RBC (Bld) [#/Vol] 4.21 10*6/uL Normal 3.90-5.20 [facility] Comment on above: Order Comment: Speci men Type: BLOOD SPECIMENOrdering Facility: [facility] Address: [address] [place] [address] Performed By: #### 5 7021-8 ####[facility] LABORATORYCLIA [id number] [address] [place] WBC (Bld) [#/Vol] 8.79 10*3/uL Normal 3.70-11.00 [facility] Comment on above: Order Comment: Speci men Type: BLOOD SPECIMENOrdering Facility: [facility] Address: [address] [place] [place] [address] Performed By: #### 5 7021-8 ####[facility] LABORATORYCLIA [id number] [address] [place] CONSULT PROGon 07-07-2024 CONSULT PROG HNO ID: [id number] Author: KAYLYN ELLIS MD Service: Gastroenterology Author [...] recent colonoscopy report completed December 2023 at [facility] - Consider cardiology consult for #8 - [...] looser consistency and with small volume BRB. [place] colonoscopy records were incomplete as report was [...] Cooperative. NAD EYES: No scleral icterus SKIN: [place] in color. No jaundice LUNGS: Decreased to [...] Ratio <2. (more content not included)... Normal [facility] Comprehensive metabolic 2000 panelon 07-07-2024 Albumin [Mass/Vol] 3.7 g/dL Low 3.9-4.9 [facility] Comment on above: Order Comment: Speci men Type: BLOOD SPECIMENOrdering Facility: [facility] Address: [address], [place] [address] Performed By: #### 2 4323-8 ####[facility] LABORATORYCLIA [id number] [address] ALP [Catalytic activity/Vol] 118 U/L Normal 34-123 [facility] Comment on above: Order Comment: Speci men Type: BLOOD SPECIMENOrdering Facility: [facility] Address: [address] [place] [address] Performed By: #### 2 4323-8 ####[facility] LABORATORYCLIA [id number] [place] [address] [place] ALT [Catalytic activity/Vol] 24 U/L Normal 7-38 [facility] Comment on above: Order Comment: Speci men Type: BLOOD SPECIMENOrdering Facility: [facility] Address: [address] [place] [address] Performed By: #### 2 4323-8 ####[facility] LABORATORYCLIA [id number] [address] STATES [facility] Anion gap [Moles/Vol] 10 mmol/L Normal 8-15 [facility] Comment on above: Order Comment: Speci men Type: BLOOD SPECIMENOrdering Facility: [facility] Address: [address] [place] [address] Performed By: #### 2 4323-8 ####[facility] LABORATORYCLIA [id number] [address] OF [facility] AST [Catalytic activity/Vol] 20 U/L Normal 13-35 [facility] Comment on above: Order Comment: Speci men Type: BLOOD SPECIMENOrdering Facility: [facility] Address: [address] [place] [address] Performed By: #### 2 4323-8 ####[facility] LABORATORYCLIA [id number] [address] [place] Bilirubin [Mass/Vol] 1.3 mg/dL Normal 0.2-1.3 [facility] Comment on above: Order Comment: Speci men Type: BLOOD SPECIMENOrdering Facility: [facility] Address: [address] [place] [address] Performed By: #### 2 4323-8 ####[facility] LABORATORYCLIA [id number] [place] [address] [place] Calcium [Mass/Vol] 9.0 mg/dL Normal 8.5-10.2 [facility] Comment on above: Order Comment: Speci men Type: BLOOD SPECIMENOrdering Facility: [facility] Address: [address] [place] [address] Performed By: #### 2 4323-8 ####[facility] LABORATORYCLIA [id number] [place] [address] [place] Chloride [Moles/Vol] 104 mmol/L Normal 98-107 [facility] Comment on above: Order Comment: Speci men Type: BLOOD SPECIMENOrdering Facility: [facility] Address: [address] [place] [address] Performed By: #### 2 4323-8 ####[facility] LABORATORYCLIA [id number] [place] [address] [place] CO2 [Moles/Vol] 25 mmol/L Normal 22-30 [facility] Comment on above: Order Comment: Speci men Type: BLOOD SPECIMENOrdering Facility: [facility] Address: [address] [place] [address] Performed By: #### 2 4323-8 ####[facility] LABORATORYCLIA [id number] [address] [place] Creatinine [Mass/Vol] 0.81 mg/dL Normal 0.58-0.96 [facility] Comment on above: Order Comment: Speci men Type: BLOOD SPECIMENOrdering Facility: [facility] Address: [address] [place] [address] Performed By: #### 2 4323-8 ####[facility] LABORATORYCLIA [id number] [address] Creatinine and Glomerular filtration rate.predicted panel (S/P/Bld) 92 mL/min/1.73m??? Normal >=60 [facility] Comment on above: Order Comment: Speci men Type: BLOOD SPECIMENOrdering Facility: [facility] Address: [address] [place] [address] Result Comment: Vidal mated Glomerular Filtration Rate (eGFR) is calculated [...] actual GFR. Performed By: #### 2 4323-8 ####[facility]ORATORYCLIA [id number] [place] [address] [place] Glucose [Mass/Vol] 104 mg/dL High 74-99 [facility] Comment on above: Order Comment: [facility] Type: BLOOD SPECIMENOrdering Facility: [facility] Address: [address] [place] [id number] Result Comment: The [place] Diabetes Association (ADA) provides guidance for cutoff [...] Standards of Medical Care in Diabetes 2016, [place] [employer]. Diabetes Care. 2016.39(Suppl 1). Performed By: #### 2 4323-8 ####[facility] LABORATORYCLIA [id number] [place] [id number] [place] Potassium [Moles/Vol] 4.1 mmol/L Normal 3.7-5.1 [facility] Comment on above: Order Comment: David [facility] Type: BLOOD SPECIMENOrdering Facility: [facility] Address: [address] [place] [address] Performed By: #### 2 4323-8 ####[facility] LABORATORYCLIA [id number] [place] [id number] [place] Protein [Mass/Vol] 6.3 g/dL Normal 6.3-8.0 [facility] Comment on above: Order Comment: Speci men Type: BLOOD SPECIMENOrdering Facility: [facility] Address: [address] [place] [address] Performed By: #### 2 4323-8 ####[facility] LABORATORYCLIA [id number] [address] Sodium [Moles/Vol] 139 mmol/L Normal 136-144 [facility] Comment on above: Order Comment: Speci men Type: BLOOD SPECIMENOrdering Facility: [facility] Address: [address] [place] [address] Performed By: #### 2 4323-8 ####[facility] LABORATORYCLIA [id number] [address] U[place] nitrogen [Mass/Vol] 7 mg/dL Normal 7-21 [facility] Comment on above: Order Comment: Speci men Type: BLOOD SPECIMENOrdering Facility: [facility] Address: [address] [place] [place] [address] Performed By: #### 2 4323-8 ####[facility] LABORATORYCLIA [id number] [address] [place] ANES POSTPROC EVALon 025 ANES POSTPROC EVAL HNO ID: [id number] Author: MARVA DAMON MD Service: Anesthesiology Author Type: Anesthesiologist Type: Anesthesia Postprocedure Evaluation Filed: 07/06/2024 10:50 Note Text: POST ANESTHESIA EVALUATION NOTE : 1980 Procedure Summary Date: 07/06/24 Room / Location: [facility] Endoscopy Anesthesia Start: 934 Anesthesia Stop: 954 Procedure: EGD DIAGNOSTIC Diagnosis: (Abdominal pain) Scheduled Providers: Kaylyn Ellis MD; Eliana Ellis APRN.SECURITY SUPPORT ANALYST; Marva Damon MD Responsible Provider: Marva Damon [...] July 06, 2024 TIME: 10:50 AM CSN: [id number] Normal [facility] ANES PRE-OPon 07-06-2024 ANES PRE-OP HNO ID: [id number] Author: MARVA DAMON MD Service: Anesthesiology Author Type: Anesthesiologist Type: Anesthesia Preprocedure Evaluation Filed: 07/06/2024 09:18 Note Text: ANESTHESIOLOGY DAY OF SURGERY NOTE : 1980 Procedure Information Date/Time: 07/06/24 1000 Scheduled providers: Kaylyn Ellis MD; Eliana Ellis APRN.SECURITY SUPPORT ANALYST; Marva Damon MD Procedure: EGD DIAGNOSTIC Location: [facility] Endoscopy Estimated body mass index is [...] and consent discussed: yes. Patient / Responsible Democrat agrees to proceed: yes Patient / Surrogate [...] July 06, 2024 TIME: 9:17 AM CSN: [id number] Normal [facility] CBC W Auto Differential pane l (Bld)on 07-06-2024 Basophils (Bld) [#/Vol] 0.03 10*3/uL Normal <0.11 [facility] Comment on above: Order Comment: Speci men Type: BLOOD SPECIMEN [facility] Address: [address] [place] [address] Performed By: #### 5 8410-2 #### [facility] CLIA [id number] [address] [place] [address] [place] Basophils/100 WBC (Bld) 0.3 % Normal [facility] Comment on above: Order Comment: Speci men Type: BLOOD SPECIMEN [facility] Address: [address] [place] [address] Performed By: #### 5 8410-2 #### [facility] CLIA [id number] [address] [place] [address] [place] Differential cell count method Nom (Bld) Auto Normal [facility] Comment on above: Order Comment: Speci men Type: BLOOD SPECIMEN [facility] Address: [address] [place] [address] Performed By: #### 5 8410-2 #### [facility] CLIA [id number] [address] [place] [address] [place] Eosinophils (Bld) [#/Vol] 0.17 10*3/uL Normal <0.46 [facility] Comment on above: Order Comment: Speci men Type: BLOOD SPECIMEN [facility] Address: [address] [place] [address] Performed By: #### 5 8410-2 #### [facility] CLIA [id number] [address] [place] Eosinophils/100 WBC (Bld) 1.9 % Normal [facility] Comment on above: Order Comment: Speci men Type: BLOOD SPECIMEN [facility] Address: [address] [place] [address] Performed By: #### 5 8410-2 #### [facility] CLIA [id number] [address] [place] [address] [place] Erythrocyte distribution width (RBC) [Ratio] 14.5 % Normal 11.5-15.0 [facility] Comment on above: Order Comment: Speci men Type: BLOOD SPECIMEN [facility] Address: [address] [place] [address] Performed By: #### 5 8410-2 #### [facility] CLIA [id number] [address] [place] [address] [place] Hematocrit (Bld) [Volume fraction] 40.4 % Normal 36.0-46.0 [facility] Comment on above: Order Comment: Speci men Type: BLOOD SPECIMEN [facility] Address: [address] [place] [address] Performed By: #### 5 8410-2 #### [facility] CLIA [id number] [address] [place] Hemoglobin (Bld) [Mass/Vol] 13.3 g/dL Normal 11.5-15.5 [facility] Comment on above: Order Comment: Speci men Type: BLOOD SPECIMEN [facility] Address: [address] [place] [address] Performed By: #### 5 8410-2 #### [facility] CLIA [id number] [address] [place] [address] [place] Immature granulocytes (Bld) [#/Vol] 0.03 10*3/uL Normal <0.10 [facility] Comment on above: Order Comment: Speci men Type: BLOOD SPECIMEN [facility] Address: [address] [place] [address] Performed By: #### 5 8410-2 #### [facility] CLIA [id number] [address] [place] Immature granulocytes/100 WBC (Bld) 0.3 % Normal [facility] Comment on above: Order Comment: Speci men Type: BLOOD SPECIMEN [facility] Address: [address] [place] [address] Performed By: #### 5 8410-2 #### [facility] CLIA [id number] [address] [place] [address] [place] Lymphocytes (Bld) [#/Vol] 1.51 10*3/uL Normal 1.00-4.00 [facility] Comment on above: Order Comment: Speci men Type: BLOOD SPECIMEN [facility] Address: [address] [place] [address] Performed By: #### 5 8410-2 #### [facility] CLIA [id number] [address] [place] Lymphocytes/100 WBC (Bld) 16.6 % Normal [facility] Comment on above: Order Comment: Speci men Type: BLOOD SPECIMEN [facility] Address: [address] [place] [address] Performed By: #### 5 8410-2 #### [facility] CLIA [id number] [address] MCH (RBC) [Entitic mass] 32.6 pg Normal 26.0-34.0 [facility] Comment on above: Order Comment: Speci men Type: BLOOD SPECIMEN [facility] Address: [address] [place] [address] Performed By: #### 5 8410-2 #### [facility] CLIA [id number] [address] MCHC (RBC) [Mass/Vol] 32.9 g/dL Normal 30.5-36.0 [facility] Comment on above: Order Comment: Speci men Type: BLOOD SPECIMEN [facility] Address: [address] [place] [address] Performed By: #### 5 8410-2 #### [facility] CLIA [id number] [address] MCV (RBC) [Entitic vol] 99.0 fL Normal 80.0-100.0 [facility] Comment on above: Order Comment: Speci men Type: BLOOD SPECIMEN [facility] Address: [address] [place] [address] Performed By: #### 5 8410-2 #### [facility] CLIA [id number] [address] Monocytes (Bld) [#/Vol] 0.52 10*3/uL Normal <0.87 [facility] Comment on above: Order Comment: Speci men Type: BLOOD SPECIMEN [facility] Address: [address] [place] [address] Performed By: #### 5 8410-2 #### [facility] CLIA [id number] [address] Monocytes/100 WBC (Bld) 5.7 % Normal [facility] Comment on above: Order Comment: Speci men Type: BLOOD SPECIMEN [facility] Address: [address] [place] [address] Performed By: #### 5 8410-2 #### [facility] CLIA [id number] [address] [place] [address] [place] Neutrophils (Bld) [#/Vol] 6.82 10*3/uL Normal 1.45-7.50 [facility] Comment on above: Order Comment: Speci men Type: BLOOD SPECIMEN [facility] Address: [address] [place] [address] Performed By: #### 5 8410-2 #### [facility] CLIA [id number] [address] Neutrophils/100 WBC (Bld) 75.2 % Normal [facility] Comment on above: Order Comment: Speci men Type: BLOOD SPECIMEN [facility] Address: [address] [place] [address] Performed By: #### 5 8410-2 #### [facility] CLIA [id number] [address] [place] [address] [place] Nucleated RBC (Bld) [#/Vol] 10*3/uL Normal <0.01 [facility] Comment on above: Order Comment: Speci men Type: BLOOD SPECIMEN [facility] Address: [address] [place] [address] Performed By: #### 5 8410-2 #### [facility] CLIA [id number] [address] Nucleated RBC/100 WBC (Bld) [Ratio] 0.0 /100 WBC Normal [facility] Comment on above: Order Comment: Speci men Type: BLOOD SPECIMEN [facility] Address: [address] [place] [address] Performed By: #### 5 8410-2 #### [facility] CLIA [id number] [address] [place] Platelet mean volume (Bld) [Entitic vol] 10.6 fL Normal 9.0-12.7 [facility] Comment on above: Order Comment: Speci men Type: BLOOD SPECIMEN [facility] Address: [address] [place] [address] Performed By: #### 5 8410-2 #### [facility] CLIA [id number] [address] [place] Platelets (Bld) [#/Vol] 239 10*3/uL Normal 150-400 [facility] Comment on above: Order Comment: Speci men Type: BLOOD SPECIMEN [facility] Address: [address] [place] [address] Performed By: #### 5 8410-2 #### [facility] CLIA [id number] [address] [place] RBC (Bld) [#/Vol] 4.08 10*6/uL Normal 3.90-5.20 [facility] Comment on above: Order Comment: Speci men Type: BLOOD SPECIMEN [facility] Address: [address] [place] [place] [address] Performed By: #### 5 8410-2 #### [facility] CLIA [id number] [address] [place] WBC (Bld) [#/Vol] 9.08 10*3/uL Normal 3.70-11.00 [facility] Comment on above: Order Comment: Speci men Type: BLOOD SPECIMEN [facility] Address: [address] [place] [place] [address] Performed By: #### 5 8410-2 #### [facility] CLIA [id number] [address] Comprehensive metabolic 2000 panelon 07-06-2024 Albumin [Mass/Vol] 4.1 g/dL Normal 3.9-4.9 [facility] Comment on above: Order Comment: Speci men Type: BLOOD SPECIMENOrdering Facility: [facility] Address: [address] [place] [place] [address] Performed By: #### 2 4323-8 ####[facility]ORATORYCLIA [id number] [place] [address] [place] ALP [Catalytic activity/Vol] 134 U/L High 34-123 [facility] Comment on above: Order Comment: Speci men Type: BLOOD SPECIMENOrdering Facility: [facility] Address: [address] [place] [address] Performed By: #### 2 4323-8 ####[facility]ATORYCLIA [id number] [place] [address] [place] ALT [Catalytic activity/Vol] 32 U/L Normal 7-38 [facility] Comment on above: Order Comment: Speci men Type: BLOOD SPECIMENOrdering Facility: [facility] Address: [address] [place] [place] [address] Performed By: #### 2 4323-8 ####[facility]ATORYCLIA [id number] [place] [address] [place] Anion gap [Moles/Vol] 11 mmol/L Normal 8-15 [facility] Comment on above: Order Comment: Speci men Type: BLOOD SPECIMENOrdering Facility: [facility] Address: [address] [place] [place] [address] Performed By: #### 2 4323-8 ####[facility]ATORYCLIA [id number] [address] [place] AST [Catalytic activity/Vol] 24 U/L Normal 13-35 [facility] Comment on above: Order Comment: Speci men Type: BLOOD SPECIMENOrdering Facility: [facility] Address: [address] [place] [address] Performed By: #### 2 4323-8 ####[facility]ORATORYCLIA [id number] [place] [address] [place] Bilirubin [Mass/Vol] 1.3 mg/dL Normal 0.2-1.3 [facility] Comment on above: Order Comment: Speci men Type: BLOOD SPECIMENOrdering Facility: [facility] Address: [address] [place] [address] Performed By: #### 2 4323-8 ####[facility]ORATORYCLIA [id number] [place] [address] [place] Calcium [Mass/Vol] 9.2 mg/dL Normal 8.5-10.2 [facility] Comment on above: Order Comment: Speci men Type: BLOOD SPECIMENOrdering Facility: [facility] Address: [address] [place] [address] Performed By: #### 2 4323-8 ####[facility] LABORATORYCLIA [id number] [place] [address] [place] Chloride [Moles/Vol] 102 mmol/L Normal 98-107 [facility] Comment on above: Order Comment: Speci men Type: BLOOD SPECIMENOrdering Facility: [facility] Address: [address] [place] [address] Performed By: #### 2 4323-8 ####[facility]ORATORYCLIA [id number] [place] [address] [place] CO2 [Moles/Vol] 25 mmol/L Normal 22-30 [facility] Comment on above: Order Comment: Speci men Type: BLOOD SPECIMENOrdering Facility: [facility] Address: [address] [place] [address] Performed By: #### 2 4323-8 ####[facility] LABORATORYCLIA [id number] [place] [address] [place] Creatinine [Mass/Vol] 0.85 mg/dL Normal 0.58-0.96 [facility] Comment on above: Order Comment: Speci men Type: BLOOD SPECIMENOrdering Facility: [facility] Address: [address] [place] [address] Performed By: #### 2 4323-8 ####[facility] LABORATORYCLIA [id number] [address] [place] Creatinine and Glomerular filtration rate.predicted panel (S/P/Bld) 87 mL/min/1.73m??? Normal >=60 [facility] Comment on above: Order Comment: Speci men Type: BLOOD SPECIMENOrdering Facility: [facility] Address: [address] [place] [place] [address] Result Comment: Vidal mated Glomerular Filtration Rate (eGFR) is calculated [...] Performed By: #### 2 4323-8 ####[facility] LABORATORYCLIA [id number] [place] [address] [place] Glucose [Mass/Vol] 91 mg/dL Normal 74-99 [facility] Comment on above: Order Comment: David horton Type: BLOOD SPECIMENOrdering Facility: [facility] Address: [address] [place] [address] Result Comment: The [place] Diabetes Association (ADA) provides guidance for cutoff [...] Standards of Medical Care in Diabetes 2016, [place] [employer]. Diabetes Care. 2016.39(Suppl 1). Performed By: #### 2 4323-8 ####[facility] LABORATORYCLIA [id number] [place] [address] [place] Potassium [Moles/Vol] 3.9 mmol/L Normal 3.7-5.1 [facility] Comment on above: Order Comment: David horton Type: BLOOD SPECIMENOrdering Facility: [facility] Address: [address] [id number] Performed By: #### 2 4323-8 ####[facility] LABORATORYCLIA [id number] [place] [id number] [place] Protein [Mass/Vol] 6.2 g/dL Low 6.3-8.0 [facility] Comment on above: Order Comment: David horton Type: BLOOD SPECIMENOrdering Facility: [facility] Address: [address] [place] [address] Performed By: #### 2 4323-8 ####[facility]ATORYCLIA [id number] [address] [place] [facility] Sodium [Moles/Vol] 138 mmol/L Normal 136-144 [facility] Comment on above: Order Comment: Speci men Type: BLOOD SPECIMENOrdering Facility: [facility] Address: [address] [place] [place] [address] Performed By: #### 2 4323-8 ####[facility] LABORATORYCLIA [id number] [place] [address] [place] Urea nitrogen [Mass/Vol] 9 mg/dL Normal 7-21 [facility] Comment on above: Order Comment: Speci men Type: BLOOD SPECIMENOrdering Facility: [facility] Address: [address] [place] [place] [address] Performed By: #### 2 4323-8 ####[facility] LABORATORYCLIA [id number] [address] [place] Pathology biopsy report David (Tiss)on 07-06-2024 ADDENDUM 1: [facility] Comment on above: Order Comment: Speci men Type: BLOOD SPECIMEN [facility] Address: [address] [place] [address] Result Comment: B. I mmunohistochemical stain for H. pylori is negative. Addendum electronically signed by Jaleesa Valdivia MD on 07/16/2024 at 1121 EDT Performed By: #### 5 8410-2 #### [facility] CLIA [id number] [address] AP DISCLAIMER Normal [facility] Comment on above: Order Comment: Speci men Type: BLOOD SPECIMEN [facility]: [facility] Address: [address] [place] [address] Result Comment: Ubaldo tang Developed Test (LDT) Disclaimer: Performance characteristics of immunohistochemical, immunofluorescent, and chromogenic in-situ hybridization tests have been determined by the performing laboratory within [facility]'s Renan Rob Banks Pathology and Laboratory Medicine Department ([facility], [facility], [facility], [facility], [facility], [facility], or [facility]) in a manner consistent with CLIA requirements. One or more of these tests may not have been cleared or approved by the FDA. [facility] is regulated under CLIA as qualified to perform high-complexity testing. These tests are used for clinical purposes. These should not be regarded as investigational or for research. Positive and negative controls stain appropriately. Performed By: #### 5 8410-2 #### [facility] CLIA [id number] [address] CASE REPORT [facility] Comment on above: Order Comment: David horton Type: BLOOD SPECIMEN [facility] Address: [address] [place] [place] [address] Result Comment: [facility] Pathology Report Case: [id number] Authorizing Provider: Kaylyn Ellis MD Collected: 07/06/2024 09:43 AM Ordering Location: [facility] Endoscopy Received: 07/06/2024 11:27 AM Pathologist: Jaleesa Valdivia MD Specimens: A) - Small Bowel, Duodenum, Biopsy, R/O Sprue and Giardia B) - Stomach, Biopsy, R/O H Pylori C) - Esophagogastric Junction, Biopsy, R/O Barretts Performed By: #### 5 8410-2 #### [facility] CLIA [id number] [address] DIAGNOSIS COMMENT Part C was reviewed with Dr. Nunn, who concurs. [facility] Comment on above: Order Comment: David horton Type: BLOOD SPECIMEN [facility] Facility: [facility] Address: [address] [place] [address] Performed By: #### 5 8410-2 #### [facility] CLIA [id number] [address] FINAL DIAGNOSIS [facility] Comment on above: Order Comment: David horton Type: BLOOD SPECIMEN [facility] Address: [address] [place] [address] Result Comment: A. D uodenum, biopsy: - [...] EDT Performed By: #### 5 8410-2 #### [facility] CLIA [id number] [address] FINAL PERFORMING LAB Normal [facility] Comment on above: Order Comment: Speci men Type: BLOOD SPECIMEN [facility] Address: [address] [place] [address] Result Comment: Diag nostic interpretation performed at: [facility], [address] [place] [address], [place] [address] CLIA# [id number] Squad Sergeant: Logan Villanueva MD Performed By: #### 5 8410-2 #### [facility] CLIA [id number] [address] GROSS DESCRIPTION Normal [facility] Comment on above: Order Comment: Speci men Type: BLOOD SPECIMEN [facility] Facility: [facility] Address: [address] [place] [address] Result Comment: A. S mall Bowel, Duodenum, [...] in one cassette. Gross examination performed at [facility], [address] [place] [address] July 06, 2024 4:20 PM Performed By: #### 5 8410-2 #### [facility] CLIA [id number] [address] Upper GI endoscopyon 07-06-2 025 Upper GI endoscopy [facility] Gastrointestinal Endoscopy Patient Name: Michelle Mitchell Procedure Date: 07/06/2024 9:28 AM Date of : 1980 Admit Type: Inpatient Age: 43 Room: [facility] Gender: Female Note Status: Finalized Attending MD: Kaylyn Ellis MD, [id number] Procedure: Upper GI endoscopy Indications: Abdominal pain, [...] anesthesia care under the supervision of a SECURITY SUPPORT ANALYST was determined to be medically necessary for [...] clinical course. Procedure Code(s): --- Professional --- 86841, Esophagogastroduodenosco py, flexible, transoral; with biopsy, single or multiple CPT copyright 2020 [place] [employer]. All rights reserved. The codes documented in this report are preliminary and upon it application support analyst review may be revised to meet current compliance requirements. Attending Participation: I personally performed the entire procedure. Scope In: 9:42:49 AM Scope Out: 9:49:13 AM MD Kaylyn George MD 07/06/2024 9:59:31 AM This report has been signed electronically by Kaylyn Ellis MD Number of Addenda: 0 Note Initiated On: 07/06/2024 9:28 AM Estimated Blood Loss: Estimated blood loss: none. Normal [facility] A1AT SerPl-Kaleida Healthon 07-05-2024 Alpha 1 antitrypsin [Mass/Vol] 106 mg/dL Normal 90-200 [facility] Comment on above: Order Comment: David horton Type: BLOOD SPECIMEN [facility] Address: [address] [place] [address] Performed By: #### 5 8410-2 #### [facility] CLIA [id number] [address] OF [facility] AFP SerPl-mCncon 07-05-2024 AFP [Mass/Vol] 5.23 ng/mL Normal <9.00 [facility] Comment on above: Order Comment: David horton Type: BLOOD SPECIMEN [facility] Facility: [facility] Address: [address] [place] [address] Result Comment: The Alpha-Fetoprotein test was performed using the [employer] DxI immunoenzymatic assay. Results obtained with different assay methods or kits cannot be used interchangeably. Performed By: #### 5 8410-2 #### [facility] CLIA [id number] [address] SANDRA BY IFA SCREENon 07-06-19 25 Nuclear Ab Ql (S) Negative Normal Negative [facility] Comment on above: Order Comment: Spectian horton Type: BLOOD SPECIMEN [facility] Address: [address] [place] [address] Result Comment: Anti -nuclear antibody test is used as an aid in diagnosis of systemic autoimmune diseases. Where positive and clinically warranted, follow-up using disease-specific testing is recommended. Low positive titers are not uncommon with advanced age, certain chronic infections, and malignancies among others. Test methodology: Indirect fluorescence immunoassay (IFA) using HEp-2 cells. Performed By: #### 5 8410-2 #### [facility] CLIA [id number] [address] CBC W Auto Differential pane l (Bld)on 07-05-2024 Basophils (Bld) [#/Vol] 0.08 10*3/uL Normal <0.11 [facility] Comment on above: Order Comment: Speci men Type: BLOOD SPECIMEN [facility] Facility[facility] Address: [address] [place] [address] Performed By: #### 5 8410-2 #### [facility] CLIA [id number] [address] Basophils/100 WBC (Bld) 0.7 % Normal [facility] Comment on above: Order Comment: Kianai kris Type: BLOOD SPECIMEN [facility] Facility: [facility] Address: [address] [place] [address] Performed By: #### 5 8410-2 #### [facility] CLIA [id number] [address] Differential cell count method Nom (Bld) Auto Normal [facility] Comment on above: Order Comment: Kianai kris Type: BLOOD SPECIMEN [facility] Address: [address] [place] [address] Performed By: #### 5 8410-2 #### [facility] CLIA [id number] [address] [place] [address] [place] Eosinophils (Bld) [#/Vol] 0.12 10*3/uL Normal <0.46 [facility] Comment on above: Order Comment: Speci men Type: BLOOD SPECIMEN [facility] Address: [address] [place] [address] Performed By: #### 5 8410-2 #### [facility] CLIA [id number] [address] [place] Eosinophils/100 WBC (Bld) 1.0 % Normal [facility] Comment on above: Order Comment: Speci men Type: BLOOD SPECIMEN [facility] Address: [address] [place] [address] Performed By: #### 5 8410-2 #### [facility] CLIA [id number] [address] [place] Erythrocyte distribution width (RBC) [Ratio] 15.0 % Normal 11.5-15.0 [facility] Comment on above: Order Comment: Speci men Type: BLOOD SPECIMEN [facility] Address: [address] [place] [address] Performed By: #### 5 8410-2 #### [facility] CLIA [id number] [address] [place] Hematocrit (Bld) [Volume fraction] 45.4 % Normal 36.0-46.0 [facility] Comment on above: Order Comment: Speci men Type: BLOOD SPECIMEN [facility] Address: [address] [place] [place] [address] Performed By: #### 5 8410-2 #### [facility] CLIA [id number] [address] [place] [address] [place] Hemoglobin (Bld) [Mass/Vol] 14.2 g/dL Normal 11.5-15.5 [facility] Comment on above: Order Comment: Speci men Type: BLOOD SPECIMEN [facility] Facility: [facility] Address: [address] [place] [address] Performed By: #### 5 8410-2 #### [facility] CLIA [id number] [address] [place] [address] [place] Immature granulocytes (Bld) [#/Vol] 0.04 10*3/uL Normal <0.10 [facility] Comment on above: Order Comment: Speci men Type: BLOOD SPECIMEN [facility] Facility[facility] Address: [address] [place] [address] Performed By: #### 5 8410-2 #### [facility] CLIA [id number] [address] Immature granulocytes/100 WBC (Bld) 0.3 % Normal [facility] Comment on above: Order Comment: Speci men Type: BLOOD SPECIMEN [facility] Address: [address] [place] [place] [address] Performed By: #### 5 8410-2 #### [facility] CLIA [id number] [address] Lymphocytes (Bld) [#/Vol] 1.79 10*3/uL Normal 1.00-4.00 [facility] Comment on above: Order Comment: Speci men Type: BLOOD SPECIMEN [facility] Address: [address] [place] [place] [address] Performed By: #### 5 8410-2 #### [facility] CLIA [id number] [address] Lymphocytes/100 WBC (Bld) 14.7 % Normal [facility] Comment on above: Order Comment: Speci men Type: BLOOD SPECIMEN [facility] Address: [address] [place] [place] [address] Performed By: #### 5 8410-2 #### [facility] CLIA [id number] [address] MCH (RBC) [Entitic mass] 31.7 pg Normal 26.0-34.0 [facility] Comment on above: Order Comment: Speci men Type: BLOOD SPECIMEN [facility] Address: [address] [place] [place] [address] Performed By: #### 5 8410-2 #### [facility] CLIA [id number] [address] MCHC (RBC) [Mass/Vol] 31.3 g/dL Normal 30.5-36.0 [facility] Comment on above: Order Comment: Speci men Type: BLOOD SPECIMEN [facility] Address: [address] [place] [place] [address] Performed By: #### 5 8410-2 #### [facility] CLIA [id number] [address] MCV (RBC) [Entitic vol] 101.3 fL High 80.0-100.0 [facility] Comment on above: Order Comment: Speci men Type: BLOOD SPECIMEN [facility] Facility[facility] Address: [address] [place] [place] [address] Performed By: #### 5 8410-2 #### [facility] CLIA [id number] [address] Monocytes (Bld) [#/Vol] 0.57 10*3/uL Normal <0.87 [facility] Comment on above: Order Comment: Speci men Type: BLOOD SPECIMEN [facility] Address: [address] [place] [address] Performed By: #### 5 8410-2 #### [facility] CLIA [id number] [address] Monocytes/100 WBC (Bld) 4.7 % Normal [facility] Comment on above: Order Comment: Speci men Type: BLOOD SPECIMEN [facility] Facility[facility] Address: [address] [place] [address] Performed By: #### 5 8410-2 #### [facility] CLIA [id number] [address] [place] Neutrophils (Bld) [#/Vol] 9.58 10*3/uL High 1.45-7.50 [facility] Comment on above: Order Comment: Speci men Type: BLOOD SPECIMEN [facility] Address: [address] [place] [address] Performed By: #### 5 8410-2 #### [facility] CLIA [id number] [address] [place] Neutrophils/100 WBC (Bld) 78.6 % Normal [facility] Comment on above: Order Comment: Speci men Type: BLOOD SPECIMEN [facility] Facility: [facility] Address: [address] [place] [address] Performed By: #### 5 8410-2 #### [facility] CLIA [id number] [address] [place] [address] [place] Nucleated RBC (Bld) [#/Vol] 10*3/uL Normal <0.01 [facility] Comment on above: Order Comment: Speci men Type: BLOOD SPECIMEN [facility] Facility: [facility] Address: [address] [place] [address] Performed By: #### 5 8410-2 #### [facility] CLIA [id number] [address] [place] Nucleated RBC/100 WBC (Bld) [Ratio] 0.0 /100 WBC Normal [facility] Comment on above: Order Comment: Speci men Type: BLOOD SPECIMEN [facility] Facility[facility] Address: [address] [place] [address] Performed By: #### 5 8410-2 #### [facility] CLIA [id number] [address] [place] [address] [place] Platelet mean volume (Bld) [Entitic vol] 10.5 fL Normal 9.0-12.7 [facility] Comment on above: Order Comment: Speci men Type: BLOOD SPECIMEN [facility] Facility: [facility] Address: [address] [place] [address] Performed By: #### 5 8410-2 #### [facility] CLIA [id number] [address] [place] [address] [place] Platelets (Bld) [#/Vol] 278 10*3/uL Normal 150-400 [facility] Comment on above: Order Comment: Speci men Type: BLOOD SPECIMEN [facility] Address: [address] [place] [address] Performed By: #### 5 8410-2 #### [facility] CLIA [id number] [address] [place] RBC (Bld) [#/Vol] 4.48 10*6/uL Normal 3.90-5.20 [facility] Comment on above: Order Comment: David horton Type: BLOOD SPECIMEN [facility] Address: [address] [place] [place] [address] Performed By: #### 5 8410-2 #### [facility] CLIA [id number] [address] [place] [address] [place] WBC (Bld) [#/Vol] 12.18 10*3/uL High 3.70-11.00 [facility] Comment on above: Order Comment: David horton Type: BLOOD SPECIMEN [facility] Address: [address] [place] [place] [address] Performed By: #### 5 8410-2 #### [facility] CLIA [id number] [address] OF [facility] CELIAC SCREENon 07-05-2024 GLIAD DEAMIDATED IGA QUAL Negative Normal Negative, Test not Indicated [facility] Comment on above: Order Comment: David horton Type: BLOOD SPECIMENOrdering Facility: [facility] Address: [address] [place] [place] [address] Result Comment: This is used as an aid in diagnosis of celiac disease. Clinical correlation is required. The following results were obtained with an [employer] QUANTA Lite Gliadin IgA ION Gliadin. Gliadin IgA values obtained with different manufacturers' assay methods may not be used interchangeably. The magnitude of the reported IgA levels cannot be correlated to an endpoint titer. Performed By: #### L [id number] ####[facility] LABCLIA [id number] [address] [place] Gliadin peptide IgA Qn (S) 1 Units Normal <20 [facility] Comment on above: Order Comment: David horton Type: BLOOD SPECIMENOrdering Facility: [facility] Address: [address] [place] [place] [address] Performed By: #### L [id number] ####[facility] LABCLIA [id number] [address] [place] INTERPRETATION No serological evide nce of celiac disease, however, if celiac disease is clinically suspected and patient is not on gluten-free diet, histological diagnosis may be considered. HLA testing may help with risk assessment. Normal [facility] Comment on above: Order Comment: Speci men Type: BLOOD SPECIMENOrdering Facility: [facility] Address: [address] [place] [place] [address] Performed By: #### L [id number] ####[facility] LABIA [id number] [address] [place] TRANSGLUTAMINASE IGA ABS INTERPRETATION Negative Normal Negative [facility] Comment on above: Order Comment: David horton Type: BLOOD SPECIMENOrdering Facility: [facility] Address: [address] [place] [place] [address] Result Comment: The following results were obtained with [employer] R h-tTG IgA ION.???R h-tTG IgA values obtained with different manufacturers' assay methods may not be used interchangeably. The magnitude of the reported IgA levels cannot be corelated to an endpoint???concentration. This is used as an aid in diagnosis of celiac disease. Clinical correlation is required. Performed By: #### L [id number] ####[facility] LABIA [id number] [place] [address] [place] tTG IgA Qn (S) <2 Normal <4 [facility] Comment on above: Order Comment: Speci men Type: BLOOD SPECIMENOrdering Facility: [facility] Address: [address] [place] [place] [address] Performed By: #### L [id number] ####[facility] LABIA [id number] [place] [address] [place] CMV IgM Qnon 07-05-2024 CMV IGM, QUAL Negative Normal Negative [facility] Comment on above: Order Comment: Kianai [facility] Type: BLOOD SPECIMENOrdering Facility: [facility] Address: [address] [place] [address] Result Comment: No s erological evidence of recent exposure to Cytomegalovirus. Performed By: #### 7 853-5, 7886-5 ####[facility] LABALIYAH [id number] [address] [place] CONSULTon 07-05-2024 CONSULT HNO ID: [id number] Author: SERGIO WHITE MD Service: Gastroenterology Author [...] and facial swelling. She was evaluated in [place] [facility] twice and discharged to home. She was advised to present to [facility] by Dr. Wilkinson for admission. Her [...] suicidal ideations Ativan [Lorazepam] Vomiting Azithromycin Intolerance [place] Anaphylaxis [place] Anaphylaxis pickles Fish Anaphylaxis Levofloxacin In D5w [...] TRANSVENOUS PACEMAKER INSERTION Apr. 2006 ICD implant, [facility] ANESTHESIA TUBAL LIGATION/TRANSECTION APPENDECTOMY 05/05/2014 , [...] bedtime., D (more content not included)... Normal [facility] Ceruloplasmin SerPl-mCncon 0 07-05-2024 Ceruloplasmin [Mass/Vol] 31 mg/dL Normal 16-45 [facility] Comment on above: Order Comment: Spectian horton Type: BLOOD SPECIMEN [facility]ing Facility: [facility] Address: [address] [place] [address] Performed By: #### 5 8410-2 #### [facility] CLIA [id number] [address] [place] [address] [place] Comprehensive metabolic 2000 panelon 07-05-2024 Albumin [Mass/Vol] 4.0 g/dL Normal 3.9-4.9 [facility] Comment on above: Order Comment: David [facility] Type: BLOOD SPECIMENOrdering Facility: [facility] Address: [address] [place] [address] Performed By: #### 2 4323-8, 40880-0, 98658-8 ####[facility] [id number] [address] OF [facility] ALP [Catalytic activity/Vol] 132 U/L High 34-123 [facility] Comment on above: Order Comment: Kianai men Type: BLOOD SPECIMENOrdering Facility: [facility] Address: [address] [place] [address] Performed By: #### 2 4323-8, 81272-7, 13729-3 ####[facility] [id number] [place] [address] [place] ALT [Catalytic activity/Vol] 39 U/L High 7-38 [facility] Comment on above: Order Comment: Speci men Type: BLOOD SPECIMENOrdering Facility: [facility] Address: [address] [place] [address] Performed By: #### 2 4323-8, 92889-7, 07731-7 ####[facility] [id number] [place] [address] [place] Anion gap [Moles/Vol] 10 mmol/L Normal 8-15 [facility] Comment on above: Order Comment: Speci men Type: BLOOD SPECIMENOrdering Facility: [facility] Address: [address] [place] [address] Performed By: #### 2 4323-8, 20072-0, 63586-3 ####[facility] [id number] [address] [place] AST [Catalytic activity/Vol] 30 U/L Normal 13-35 [facility] Comment on above: Order Comment: Speci men Type: BLOOD SPECIMENOrdering Facility: [facility] Address: [address] [place] [address] Performed By: #### 2 4323-8, 82834-6, 60680-8 ####[facility] [id number] [place] [address] [place] Bilirubin [Mass/Vol] 1.0 mg/dL Normal 0.2-1.3 [facility] Comment on above: Order Comment: Speci men Type: BLOOD SPECIMENOrdering Facility: [facility] Address: [address] [place] [address] Performed By: #### 2 4323-8, 65597-0, 77106-1 ####[facility] [id number] [address] [place] Calcium [Mass/Vol] 9.1 mg/dL Normal 8.5-10.2 [facility] Comment on above: Order Comment: Speci men Type: BLOOD SPECIMENOrdering Facility: [facility] Address: [address] [place] [address] Performed By: #### 2 4323-8, 53382-9, 46046-5 ####[facility] [id number] [place] [address] [place] Chloride [Moles/Vol] 104 mmol/L Normal 98-107 [facility] Comment on above: Order Comment: Speci men Type: BLOOD SPECIMENOrdering Facility: [facility] Address: [address] [place] [address] Performed By: #### 2 4323-8, 89002-5, 50381-0 ####[facility]CLIA [id number] [place] [address] [place] CO2 [Moles/Vol] 27 mmol/L Normal 22-30 [facility] Comment on above: Order Comment: Speci men Type: BLOOD SPECIMENOrdering Facility: [facility] Address: [address] [place] [address] Performed By: #### 2 4323-8, 63535-1, 59165-9 ####[facility] [id number] [place] [address] [place] Creatinine [Mass/Vol] 0.96 mg/dL Normal 0.58-0.96 [facility] Comment on above: Order Comment: Speci men Type: BLOOD SPECIMENOrdering Facility: [facility] Address: [address] [place] [address] Performed By: #### 2 4323-8, 50356-0, 58946-1 ####[facility] [id number] [address] Creatinine and Glomerular filtration rate.predicted panel (S/P/Bld) 75 mL/min/1.73m??? Normal >=60 [facility] Comment on above: Order Comment: Speci men Type: BLOOD SPECIMENOrdering Facility: [facility] Address: [address] [place] [address] Result Comment: Vidal mated Glomerular Filtration Rate (eGFR) is calculated [...] actual GFR. Performed By: #### 2 4323-8, 95400-0, 45195-3 ####[facility] [id number] [place] [address] [place] Glucose [Mass/Vol] 89 mg/dL Normal 74-99 [facility] Comment on above: Order Comment: David horton Type: BLOOD SPECIMENOrdering Facility: [facility] Address: [address] [place], [place] [address] Result Comment: The [place] Diabetes Association (ADA) provides guidance for cutoff [...] Standards of Medical Care in Diabetes 2016, [place] Diabetes Association. Diabetes Care. 2016.39(Suppl 1). Performed By: #### 2 4323-8, 54091-1, 85469-2 ####[facility]IA [id number] [place] [address] [place] Potassium [Moles/Vol] 4.1 mmol/L Normal 3.7-5.1 [facility] Comment on above: Order Comment: David horton Type: BLOOD SPECIMENOrdering Facility: [facility] Address: [address] [place] [address] Performed By: #### 2 4323-8, 84579-3, 63857-9 ####[facility]IA [id number] [place] [address] [place] Protein [Mass/Vol] 6.9 g/dL Normal 6.3-8.0 [facility] Comment on above: Order Comment: Speci men Type: BLOOD SPECIMENOrdering Facility: [facility] Address: [address] [place] [address] Performed By: #### 2 4323-8, 34055-6, 82364-3 ####[facility] [id number] [address] Sodium [Moles/Vol] 141 mmol/L Normal 136-144 [facility] Comment on above: Order Comment: Speci men Type: BLOOD SPECIMENOrdering Facility: [facility] Address: [address] [place] [address] Performed By: #### 2 4323-8, 24331-9, 52496-2 ####[facility]CL[facility] [id number] [address] STATES [facility] Urea nitrogen [Mass/Vol] 12 mg/dL Normal 7-21 [facility] Comment on above: Order Comment: Speci men Type: BLOOD SPECIMENOrdering Facility: [facility] Address: [address] [place] [place] [address] Performed By: #### 2 4323-8, 20810-1, 08960-7 ####[facility]ORYCLIA [id number] [address] [place] EBV capsid IgM Qn (S)on 06-13 EBV VCA IGM, QUAL Negative Normal Negative [facility] Comment on above: Order Comment: Speci men Type: BLOOD SPECIMENOrdering Facility: [facility] Address: [address] [place] [address] Result Comment: No s erological evidence of recent EBV infection. Performed By: #### 7 853-5, 7886-5 ####[facility] LABCLIA [id number] [place] [address] [place] HISTORY PHYSICALon HISTORY PHYSICAL HNO ID: [id number] Author: DEX WILKINSON MD Service: Family Practice [...] couple weeks, she has been seen at [facility] twice over the last few days and [...] PERMANENT TRANSVENOUS PACEMAKER INSERTION 2006 ICD implant, [facility] ANESTHESIA TUBAL LIGATION/TRANSECTION APPENDECTOMY 05/05/2014 , [...] suicidal ideations Ativan [Lorazepam] Vomiting Azithromycin Intolerance [place] Anaphylaxis [place] Anaphylaxis pickles Fish Anaphylaxis Levofloxacin In D5w Swelling, Itching IV si (more content not included)... Normal [facility] HSV PCR, MISCELLANEOUS SPECTian KRIS TYPESon 07-05-2024 HERPES SIMPLEX VIRUS SOURCE Plasma Normal [facility] Comment on above: Order Comment: Speci [facility] Type: BLOOD SPECIMEN [facility] Address: [address] [place] [address] Performed By: #### 5 8410-2 #### [facility] CLIA [id number] [address] HSV 1 SUBTYPE BY PCR Not detected Normal [facility] Comment on above: Order Comment: David [facility] Type: BLOOD SPECIMEN [facility] Address: [address] [place] [place] [address] Performed By: #### 5 8410-2 #### [facility] CLIA [id number] [address] HSV 2 SUBTYPE BY PCR Not detected Normal [facility] Comment on above: [facility]: BLOOD SPECIMEN [facility] Address: [address] [place] [place] [address] Result Comment: INTE RPRETIVE INFORMATION: HSV-1 and HSV-2 Subtype by PCR A negative result does not rule out the presence of PCR inhibitors in the patient specimen or test-specific nucleic acid in concentrations below the level of detection by this test. This test was developed and its performance characteristics determined by [facility]. It has not been cleared or approved by the [place] Food and Drug Administration. This test was performed in a CLIA certified laboratory and is intended for clinical purposes. Performed By: [facility] [address] [place] [address] Squad Sergeant: José Burns MD, PhD CLIA Number: [id number] Performed By: #### 5 8410-2 #### [facility] CLIA [id number] [address] [place] IgA SerPl-mCncon 07-05-2024 IgA [Mass/Vol] 97 mg/dL Normal 70-400 [facility] Comment on above: Order Comment: Speci men Type: BLOOD SPECIMEN [facility] Address: [address] [place] [address] Performed By: #### 5 8410-2 #### [facility] CLIA [id number] [address] [place] [address] [place] Iron and Iron binding capaci ty panelon 07-05-2024 Iron [Mass/Vol] 77 ug/dL Normal 41-186 [facility] Comment on above: Order Comment: Speci men Type: BLOOD SPECIMENOrdering Facility: [facility] Address: [address] [place] [address] Performed By: #### 2 4323-8, 08321-7, 38769-9 ####[facility] [id number] [place] [address] [place] Iron binding capacity [Mass/Vol] 411 ug/dL High 232-386 [facility] Comment on above: Order Comment: Speci men Type: BLOOD SPECIMENOrdering Facility: [facility] Address: [address] [place] [address] Performed By: #### 2 4323-8, 29220-7, 12703-1 ####[facility] [id number] [address] [place] Iron/TIBC [Molar ratio] 18.7 % Normal 15.0-57.0 [facility] Comment on above: Order Comment: Speci men Type: BLOOD SPECIMENOrdering Facility: [facility] Address: [address] [place] [address] Performed By: #### 2 4323-8, 36977-6, 55174-4 ####[facility] [id number] [place] [address] [place] Lipid 1996 panelon Cholesterol [Mass/Vol] 172 mg/dL Normal <200 [facility] Comment on above: Order Comment: Speci men Type: BLOOD SPECIMENOrdering Facility: [facility] Address: [address] [place] [address] Result Comment: <200 mg/dL, Desirable 200-239 mg/dL, Borderline high >239 mg/dL, High Performed By: #### 2 4323-8, 23969-2, 12273-5 ####[facility] [id number] [address] Cholesterol in HDL [Mass/Vol] 36 mg/dL Low >39 [facility] Comment on above: Order Comment: Kianai men Type: BLOOD SPECIMENOrdering Facility: [facility] Address: [address] [place] [place] [address] Result Comment: 40-5 9 mg/dL, Acceptable >59 mg/dL, High: Negative risk factor for coronary heart disease <40 mg/dL, Low: Positive risk factor for coronary heart disease Performed By: #### 2 4323-8, 20090-1, ####[facility] [id number] [address] Cholesterol in LDL [Mass/Vol] 108 mg/dL High <100 [facility] Comment on above: Order Comment: David horton Type: BLOOD SPECIMENOrdering Facility: [facility] Address: [address] [place] [place] [address] Result Comment: <100 mg/dL, Optimal 100-129 mg/dL, Near optimal/above optimal 130-159 mg/dL, Borderline high 160-189 mg/dL, High >189 mg/dL, Very high Secondary prevention optimal LDL Cholesterol levels are recommended to be <70 mg/dL LDL cholesterol is calculated using the Stoddard-NIH equation. Performed By: #### 2 4323-8, 63831-4, 94638-8 ####[facility] [id number] [address] Cholesterol in LDL/Cholesterol in HDL [Mass ratio] 3.00 {ratio} High <2.54 [facility] Comment on above: Order Comment: David kris Type: BLOOD SPECIMENOrdering Facility: [facility] Address: [address] [place] [address] Result Comment: Refe rence: 1. National Cholesterol Education Program ATP III Guideline At-A-Glance Quick Desk Reference: National Heart, Lung, and Blood Fischer. National Institutes of Health. 2001: NIH Publication No. 01-3305. 2. An International Atherosclerosis Society position paper: global recommendations for the management of dyslipidemia: executive summary, Atherosclerosis. 2014: 232(2):410-413. Performed By: #### 2 4323-8, 23965-1, 90009-6 ####[facility] [id number] [address] Cholesterol in VLDL [Mass/Vol] 26 mg/dL Normal <30 [facility] Comment on above: Order Comment: Speci men Type: BLOOD SPECIMENOrdering Facility: [facility] Address: [address] [place] [place] [address] Performed By: #### 2 4323-8, 25061-9, 65066-5 ####[facility] [id number] [address] Cholesterol non HDL [Mass/Vol] 136 mg/dL High <130 [facility] Comment on above: Order Comment: David horton Type: BLOOD SPECIMENOrdering Facility: [facility] Address: [address] [place] [address] Result Comment: <130 mg/dL, Optimal 130-159 mg/dL, Near optimal/above optimal 160-189 mg/dL, Borderline high 190-219 mg/dL, High >219 mg/dL, Very high Secondary prevention optimal non HDL Cholesterol levels are recommended to be <100 mg/dL Performed By: #### 2 4323-8, 82431-9, 36020-1 ####[facility] [id number] [address] Cholesterol.total/Choles terol in HDL [Mass ratio] 4.78 {ratio} Normal <5.10 [facility] Comment on above: Order Comment: David kris Type: BLOOD SPECIMENOrdering Facility: [facility] Address: [address] [place] [address] Performed By: #### 2 4323-8, 35383-8, 35328-4 ####[facility] [id number] [address] OF [facility] FASTING TIME Normal [facility] Comment on above: Order Comment: Speci kris Type: BLOOD SPECIMENOrdering Facility: [facility] Address: [address] [place] [address] Result Comment: Unkn own Performed By: #### 2 4323-8, 67195-7, 98393-3 ####[facility] [id number] [address] STATES OF [facility] Triglyceride [Mass/Vol] 157 mg/dL High <150 M [facility] Comment on above: Order Comment: Kianai men Type: BLOOD SPECIMENOrdering Facility: [facility] Address: [address] [place] [place] [address] Result Comment: <150 mg/dL, Normal 150-199 mg/dL, Borderline high 200-499 mg/dL, High >499 mg/dL, Very high Performed By: #### 2 4323-8, 33908-1, 44639-2 ####[facility] [id number] [address] [place] Mitochondria Ab IF Ql (S)on 07-05-2024 Mitochondria M2 Ab IA Qn (S) 4.4 Units Normal <=20.0 [facility] Comment on above: Order Comment: David kris Type: BLOOD SPECIMENOrdering Facility: [facility] Address: [address] [place] [address] Performed By: #### 1 4252-1, 91157-4 ####[facility] LABCLIA [id number] [address] [place] Mitochondria M2 Ab Ql (S) Negative Normal Negative [facility] Comment on above: Order Comment: Kianatian horton Type: BLOOD SPECIMENOrdering Facility: [facility] Address: [address] [place] [place] [address] Result Comment: Anti -mitochondrial antibody test is used as an aid in diagnosis of primary biliary cholangitis. Clinical correlation is required. Performed By: #### 1 4252-1, 61374-4 ####[facility] LABCLIA [id number] [address] [place] Smooth muscle Ab Ql (S)on ACTIN SMOOTH MUSCLE IGG QUALITATIVE Negative Normal Negative [facility] Comment on above: Order Comment: Speci men Type: BLOOD SPECIMENOrdering Facility: [facility] Address: [address] [place] [address] Performed By: #### 1 4252-1, 30321-6 ####[facility] LABCLIA [id number] [address] ACTIN SMOOTH MUSCLE IGG QUANTITATIVE 11 Units Normal <20 [facility] Comment on above: Order Comment: Speci men Type: BLOOD SPECIMENOrdering Facility: [facility] Address: [address] [place] [address] Performed By: #### 1 4252-1, 65916-0 ####[facility] LABCLIA [id number] [address] [place] ALLIED HEALTHon 07-04-2024 ALLIED HEALTH HNO ID: [id number] Author: SAMSON CRUM CT Service: Radiology Author [...] PATIENT PRESENTS WITH AN IMPLANTABLE OR ATTACHED THIN FILM TECHNICIAN: N/A RADIOLOGY DEPARTMENT: Ultrasound PERIPHERAL IV DATA: Not applicable SIGNED BY: MIRACLE Black July 04, 2024 10:25 PM Normal [facility] ALLIED HEALTH HNO ID: [id number] Author: KEVEN CORNELIUS CT Service: Radiology Author [...] PATIENT PRESENTS WITH AN IMPLANTABLE OR ATTACHED THIN FILM TECHNICIAN: No ALLERGIES: Reviewed and unchanged CONTRAST ALLERGY: [...] PERIPHERAL IV DATA: Inpatient - refer to [facility] documentation RADIOLOGY DEPARTMENT: CT; Exam(s) Completed: Chest Abdomen Pelvis SIGNATURE: MIRACLE Brody PATIENT NAME: Michelle Mitchell DATE: July 04, 2024 TIME: 5:50 PM Normal [facility] BETA HCG, QUANTITATIVE FOR E Don 07-04-2024 HCG.beta subunit Qn 0.6 m[IU]/mL Normal <5.0 [facility] Comment on above: Order Comment: Speci men Type: BLOOD SPECIMENOrdering Facility: [facility] Address: [address] [place] [address] Result Comment: Oskar angelesrizwana Performed By: #### H CGED, 3040-3, 43686-1 ####[facility]ORYCLIA [id number] [place] [address] [place] Bilirub SerPl-mCncon 025 Bilirubin [Mass/Vol] 0.6 mg/dL Normal 0.2-1.3 [facility] Comment on above: Order Comment: Speci men Type: BLOOD SPECIMENOrdering Facility: [facility] Address: [address] [place] [address] Performed By: #### 1 975-2, 75569-9, 16309-5, 5195-3 ####[facility] LABCLIA [id number] [address] [place] C. trachomatis+N. gonorrhoea e DNA BIMAL+probe Ql (Unsp spec)on 07-04-2024 C. trachomatis rRNA BIMAL+probe Ql (Unsp spec) Not detected Normal Not detected [facility] Comment on above: Order Comment: Speci men Type: BLOOD SPECIMEN [facility] Address: [address] [place] [place] [address] Performed By: #### 5 8410-2 #### [facility] CLIA [id number] [address] [place] [address] [place] N. gonorrhoeae rRNA BIAML+probe Ql (Unsp spec) Not detected Normal Not detected [facility] Comment on above: Order Comment: Speci men Type: BLOOD SPECIMEN [facility] Address: [address] [place] [address] Performed By: #### 5 8410-2 #### [facility] CLIA [id number] [address] [place] [address] [place] CBC W Auto Differential pane l (Bld)on 07-04-2024 Basophils (Bld) [#/Vol] 0.05 10*3/uL Normal <0.11 [facility] Comment on above: Order Comment: Speci men Type: BLOOD SPECIMEN [facility] Address: [address] [place] [address] Performed By: #### 5 8410-2 #### [facility] CLIA [id number] [address] [place] [address] [place] Basophils/100 WBC (Bld) 0.3 % Normal [facility] Comment on above: Order Comment: Speci men Type: BLOOD SPECIMEN [facility] Address: [address] [place] [address] Performed By: #### 5 8410-2 #### [facility] CLIA [id number] [address] [place] Differential cell count method Nom (Bld) Auto Normal [facility] Comment on above: Order Comment: Speci men Type: BLOOD SPECIMEN [facility] Address: [address] [place] [address] Performed By: #### 5 8410-2 #### [facility] CLIA [id number] [address] [place] [address] [place] Eosinophils (Bld) [#/Vol] 0.12 10*3/uL Normal <0.46 [facility] Comment on above: Order Comment: Speci men Type: BLOOD SPECIMEN [facility] Address: [address] [place] [place] [address] Performed By: #### 5 8410-2 #### [facility] CLIA [id number] [address] [place] [address] [place] Eosinophils/100 WBC (Bld) 0.8 % Normal [facility] Comment on above: Order Comment: Speci men Type: BLOOD SPECIMEN [facility] Address: [address] [place] [address] Performed By: #### 5 8410-2 #### [facility] CLIA [id number] [address] [place] [address] [place] Erythrocyte distribution width (RBC) [Ratio] 14.7 % Normal 11.5-15.0 [facility] Comment on above: Order Comment: Speci men Type: BLOOD SPECIMEN [facility] Address: [address] [place] [address] Performed By: #### 5 8410-2 #### [facility] CLIA [id number] [address] [place] [address] [place] Hematocrit (Bld) [Volume fraction] 43.5 % Normal 36.0-46.0 [facility] Comment on above: Order Comment: Speci men Type: BLOOD SPECIMEN [facility] Address: [address] [place] [place] [address] Performed By: #### 5 8410-2 #### [facility] CLIA [id number] [address] [place] [address] [place] Hemoglobin (Bld) [Mass/Vol] 14.0 g/dL Normal 11.5-15.5 [facility] Comment on above: Order Comment: Speci men Type: BLOOD SPECIMEN [facility] Address: [address] [place] [address] Performed By: #### 5 8410-2 #### [facility] CLIA [id number] [address] [place] [address] [place] Immature granulocytes (Bld) [#/Vol] 0.08 10*3/uL Normal <0.10 [facility] Comment on above: Order Comment: Speci men Type: BLOOD SPECIMEN Ordering Facility: [facility] Address: [address] [place] [address] Performed By: #### 5 8410-2 #### [facility] CLIA [id number] [address] [place] Immature granulocytes/100 WBC (Bld) 0.5 % Normal [facility] Comment on above: Order Comment: Speci men Type: BLOOD SPECIMEN Ordering Facility: [facility] Address: [address] [place] [address] Performed By: #### 5 8410-2 #### [facility] CLIA [id number] [address] [place] [address] [place] Lymphocytes (Bld) [#/Vol] 1.38 10*3/uL Normal 1.00-4.00 [facility] Comment on above: Order Comment: Speci men Type: BLOOD SPECIMEN Ordering Facility: [facility] Address: [address] [place] [address] Performed By: #### 5 8410-2 #### [facility] CLIA [id number] [address] Lymphocytes/100 WBC (Bld) 9.4 % Normal [facility] Comment on above: Order Comment: Speci men Type: BLOOD SPECIMEN Ordering Facility: [facility] Address: [address] [place] [address] Performed By: #### 5 8410-2 #### [facility] CLIA [id number] [address] MCH (RBC) [Entitic mass] 31.7 pg Normal 26.0-34.0 [facility] Comment on above: Order Comment: Speci men Type: BLOOD SPECIMEN Ordering Facility: [facility] Address: [address] [place] [address] Performed By: #### 5 8410-2 #### [facility] CLIA [id number] [address] MCHC (RBC) [Mass/Vol] 32.2 g/dL Normal 30.5-36.0 [facility] Comment on above: Order Comment: Speci men Type: BLOOD SPECIMEN Ordering Facility: [facility] Address: [address] [place] [address] Performed By: #### 5 8410-2 #### [facility] CLIA [id number] [address] MCV (RBC) [Entitic vol] 98.6 fL Normal 80.0-100.0 [facility] Comment on above: Order Comment: Speci men Type: BLOOD SPECIMEN Ordering Facility: [facility] Address: [address] [place] [address] Performed By: #### 5 8410-2 #### [facility] CLIA [id number] [address] Monocytes (Bld) [#/Vol] 0.61 10*3/uL Normal <0.87 [facility] Comment on above: Order Comment: Speci men Type: BLOOD SPECIMEN Ordering Facility: [facility] Address: [address] [place] [address] Performed By: #### 5 8410-2 #### [facility] CLIA [id number] [address] [place] [address] [place] Monocytes/100 WBC (Bld) 4.1 % Normal [facility] Comment on above: Order Comment: Speci men Type: BLOOD SPECIMEN Ordering Facility: [facility] Address: [address] [place] [address] Performed By: #### 5 8410-2 #### [facility] CLIA [id number] [address] [place] [address] [place] Neutrophils (Bld) [#/Vol] 12.51 10*3/uL High 1.45-7.50 [facility] Comment on above: Order Comment: Speci men Type: BLOOD SPECIMEN Ordering Facility: [facility] Address: [address] [place] [address] Performed By: #### 5 8410-2 #### [facility] CLIA [id number] [address] [place] [address] [place] Neutrophils/100 WBC (Bld) 84.9 % Normal [facility] Comment on above: Order Comment: Speci men Type: BLOOD SPECIMEN Ordering Facility: [facility] Address: [address] [place] [address] Performed By: #### 5 8410-2 #### [facility] CLIA [id number] [address] [place] [address] [place] Nucleated RBC (Bld) [#/Vol] 10*3/uL Normal <0.01 [facility] Comment on above: Order Comment: Speci men Type: BLOOD SPECIMEN Ordering Facility: [facility] Address: [address] [place] [address] Performed By: #### 5 8410-2 #### [facility] CLIA [id number] [address] [place] [address] [place] Nucleated RBC/100 WBC (Bld) [Ratio] 0.0 /100 WBC Normal [facility] Comment on above: Order Comment: Speci men Type: BLOOD SPECIMEN Ordering Facility: [facility] Address: [address] [place] [address] Performed By: #### 5 8410-2 #### [facility] CLIA [id number] [address] Platelet mean volume (Bld) [Entitic vol] 10.4 fL Normal 9.0-12.7 [facility] Comment on above: Order Comment: Speci men Type: BLOOD SPECIMEN Ordering Facility: [facility] Address: [address] [place] [address] Performed By: #### 5 8410-2 #### [facility] CLIA [id number] [address] [place] Platelets (Bld) [#/Vol] 251 10*3/uL Normal 150-400 [facility] Comment on above: Order Comment: Speci men Type: BLOOD SPECIMEN Ordering Facility: [facility] Address: [address] [place] [address] Performed By: #### 5 8410-2 #### [facility] CLIA [id number] [address] [place] RBC (Bld) [#/Vol] 4.41 10*6/uL Normal 3.90-5.20 [facility] Comment on above: Order Comment: Speci men Type: BLOOD SPECIMEN Ordering Facility: [facility] Address: [address] [place] [address] Performed By: #### 5 8410-2 #### [facility] CLIA [id number] [address] OF [facility] WBC (Bld) [#/Vol] 14.75 10*3/uL High 3.70-11.00 [facility] Comment on above: Order Comment: Speci men Type: BLOOD SPECIMEN Ordering Facility: [facility] Address: [address] [place] [address] Performed By: #### 5 8410-2 #### [facility] CLIA [id number] [address] [place] CT ABD/PEL W IVCONon 04-23-[address] ABD/PEL W IVCON * * *Final Report* * * DATE OF EXAM: Jul 04 2024 6:04PM [facility] 0530 - CT ABD/PEL W IVCON / [...] previous. Ascites, most prominent in the pelvis Manager Of Clinical: PSCManjinder Transcribe Date/Time: Jul 04 2024 7:04P Dictated by : MICHELLE MUÑOZ MD This examination was interpreted and the report reviewed and electronically signed by: MICHELLE MUÑOZ MD on Jul 04 2024 7:13PM EST [id number] [facility] CTA CHEST (NON GATED) W IVCO N PEon 04-23-2025 CTA CHEST (NON GATED) W IVCON PE * * *Final Report* * * DATE OF EXAM: Jul 04 2024 6:04PM [facility] 0564 - CTA CHEST (NON GATED) W [...] suggesting congestive heart failure or fluid overload. Manager Of Clinical: PSCB Transcribe Date/Time: Jul 04 2024 6:47P Dictated by : MICHELLE MUÑOZ MD This examination was interpreted and the report reviewed and electronically signed by: MICHELLE MUÑOZ MD on Jul 04 2024 7:02PM EST [id number] Normal [facility] Comprehensive metabolic 2000 panelon 07-04-2024 Albumin [Mass/Vol] 3.9 g/dL Normal 3.9-4.9 [facility] Comment on above: Order Comment: Speci men Type: BLOOD SPECIMENOrdering Facility: [facility] Address: [address] [place] [address] Performed By: #### H KALED, 0-3, 35762-1 ####[facility] [id number] [place] [address] [place] ALP [Catalytic activity/Vol] 122 U/L Normal 34-123 [facility] Comment on above: Order Comment: Speci men Type: BLOOD SPECIMENOrdering Facility: [facility] Address: [address] [place] [address] Performed By: #### H CHERYL, 0-3, 82844-3 ####[facility] [id number] [place] [id number] [place] ALT [Catalytic activity/Vol] 40 U/L High 7-38 [facility] Comment on above: Order Comment: Speci men Type: BLOOD SPECIMENOrdering Facility: [facility] Address: [address] [place] [address] Performed By: #### H CGED, 3040-3, 05631-4 ####[facility] [id number] [place] [address] [place] Anion gap [Moles/Vol] 11 mmol/L Normal 8-15 [facility] Comment on above: Order Comment: Speci men Type: BLOOD SPECIMENOrdering Facility: [facility] Address: [address] [facility] [place] [address] Performed By: #### H CGED, 3040-3, 27787-4 ####[facility] [id number] [place] [address] [place] AST [Catalytic activity/Vol] 40 U/L High 13-35 [facility] Comment on above: Order Comment: Speci men Type: BLOOD SPECIMENOrdering Facility: [facility] Address: [address] [place], [place] [address] [address] Performed By: #### H CGED, 0-3, 46489-8 ####[facility] [id number] [place] [address] [place] Bilirubin [Mass/Vol] 0.7 mg/dL Normal 0.2-1.3 [facility] Comment on above: Order Comment: Speci men Type: BLOOD SPECIMENOrdering Facility: [facility] Address: [address] [place] [address] Performed By: #### H CGED, 0-3, 80032-8 ####[facility] [id number] [place] [address] [place] Calcium [Mass/Vol] 8.8 mg/dL Normal 8.5-10.2 [facility] Comment on above: Order Comment: Speci men Type: BLOOD SPECIMENOrdering Facility: [facility] Address: [address] [place] [address] Performed By: #### H CGED, 0-3, 28623-6 ####[facility] [id number] [place] [address] [place] Chloride [Moles/Vol] 106 mmol/L Normal 98-107 [facility] Comment on above: Order Comment: Speci men Type: BLOOD SPECIMENOrdering Facility: [facility] Address: [address] [place] [address] Performed By: #### H CGED, 3040-3, 90821-4 ####[facility] [id number] [address] [place] [facility] CO2 [Moles/Vol] 21 mmol/L Low 22-30 [facility] Comment on above: Order Comment: David horton Type: BLOOD SPECIMENOrdering Facility: [facility] Address: [address] [place] [address] Performed By: #### H CGED, 3040-3, 52810-1 ####[facility] [id number] [place] [id number] [place] Creatinine [Mass/Vol] 0.82 mg/dL Normal 0.58-0.96 [facility] Comment on above: Order Comment: Spectian men Type: BLOOD SPECIMENOrdering Facility: [facility] Address: [address] [place] [address] Performed By: #### H CGED, 3040-3, 21980-9 ####[facility] [id number] [address] Creatinine and Glomerular filtration rate.predicted panel (S/P/Bld) 91 mL/min/1.73m??? Normal >=60 [facility] Comment on above: Order Comment: Spectian men Type: BLOOD SPECIMENOrdering Facility: [facility] Address: [address] [place] [place] [address] Result Comment: Vidal mated Glomerular Filtration Rate (eGFR) is calculated [...] GFR. Performed By: #### H CGED, 3040-3, 43742-2 ####[facility] [id number] [place] [id number] [facility] Glucose [Mass/Vol] 78 mg/dL Normal 74-99 [facility] Comment on above: Order Comment: David kris Type: BLOOD SPECIMENOrdering Facility: [facility] Address: [address] [place] [place] [address] Result Comment: The [place] [employer] (ADA) provides guidance for cutoff [...] Standards of Medical Care in Diabetes 2016, [place] [employer]. Diabetes Care. 2016.39(Suppl 1). Performed By: #### H CGED, 3040-3, 09841-0 ####[facility] [id number] [place] [address] [place] Potassium [Moles/Vol] 4.4 mmol/L Normal 3.7-5.1 [facility] Comment on above: Order Comment: David horton Type: BLOOD SPECIMENOrdering Facility: [facility] Address: [address] [place] [address] Performed By: #### H CGED, 3040-3, 82002-6 ####[facility] [id number] [place] [address] [place] Protein [Mass/Vol] 6.8 g/dL Normal 6.3-8.0 [facility] Comment on above: Order Comment: David horton Type: BLOOD SPECIMENOrdering Facility: [facility] Address: [address] [place] [address] Performed By: #### H CGED, 3040-3, 59665-5 ####[facility] [id number] [place] [address] [place] Sodium [Moles/Vol] 138 mmol/L Normal 136-144 [facility] Comment on above: Order Comment: David horton Type: BLOOD SPECIMENOrdering Facility: [facility] Address: [address] [place] [address] Performed By: #### H CGED, 3040-3, 49359-4 ####[facility] [id number] [place] [id number] [facility] [place] Urea nitrogen [Mass/Vol] 16 mg/dL Normal 7- [facility] Comment on above: Order Comment: Speci men Type: BLOOD SPECIMENOrdering Facility: [facility] Address: [address] [place], [place] [address] [id number] Performed By: #### H CGED, 3040-3, 07507-6 ####[facility] [id number] [place] [id number] [facility] ED NOTEon 07-04-2024 ED NOTE HNO ID: [id number] Author: JOSIE RODAS RN Service: Nursing Author Type: Registered Nurse Type: ED Notes Filed: 07/04/2024 21:35 Note Text: Pt is tearful at times [facility] ED NOTE HNO ID: [id number] Author: JOSIE RODAS RN Service: Nursing Author Type: Registered Nurse Type: ED Notes Filed: 07/04/2024 21:34 Note Text: Pt has completed the ultrasound she has ambulated to the bathroom gait is steady pt states she still has abd pain and feels bloated [facility] ED NOTE HNO ID: [id number] Author: JOSIE RODAS RN Service: Nursing Author Type: Registered Nurse Type: ED Notes Filed: 07/04/2024 21:16 Note Text: Pt has tolerated the ultrasound with mild distress [facility] ED NOTE HNO ID: [id number] Author: JOSIE RODAS RN Service: Nursing Author Type: Registered Nurse Type: ED Notes Filed: 07/04/2024 20:01 Note Text: Pelvic exam per MARCIO Cueva pt tolerated fair Sample was sent [facility] ED NOTE HNO ID: [id number] Author: JOSIE RODAS RN Service: Nursing Author Type: Registered Nurse Type: ED Notes Filed: 07/04/2024 19:47 Note Text: PA is bedside [facility] ED NOTE HNO ID: [id number] Author: JOSIE RODAS RN Service: Nursing Author Type: Registered Nurse Type: ED Notes Filed: 07/04/2024 19:08 Note Text: Pt is in a position of comfort [facility] ED PROGRESS NOTE (PROVIDER)o n 07-04-2024 ED PROGRESS NOTE (PROVIDER) HNO ID: [id number] Author: SHANNA HARRIS MD Service: Emergency Medicine [...] intractable abdominal pain. Reportedly, was seen at [facility] on two occasions with labs and CTs (non of which we can see in EMR) thought to possibly have Crohn's. PCP is Dr. Wilkinson who directed patient to come to [place]. At time of sign out patient is [...] 04, 2024 TIME: 7:24 PM PAGER/CONTACT #: [facility] ED PROV NOTEon 07-04-2024 ED PROV NOTE HNO ID: [id number] Author: SHANNA HARRIS MD Service: ? Author Type: Physician Provider Relations Rep Type: ED Provider Notes Filed: 07/04/2024 20:18 [...] last 4 days. She was seen at [facility] [place] 2[place] where she had labs and CAT scan [...] with: Abdominal Pain: was seen twice at [facility] her dr tld her to come here pt states pain is not getting better 43-year-old female with a past medical history of breast cancer, CHF, GERD, kidney stones, presents to the ED today for abdominal pain, patient's had abdominal pain on and off now for the last couple weeks, she has been seen at [facility] twice over the last few days and [...] PERMANENT TRANSVENOUS PACEMAKER INSERTION 2006 ICD implant, [facility] ANESTHESIA TUBAL LIGATION/TRANSECTION APPENDECTOMY 05/05/2014 , [...] use: N (more content not included)... Normal [facility] HAV IgM Ser Qlon 07-04-2024 HAV IgM Ql (S) Negative Normal Negative [facility] Comment on above: Order Comment: Speci men Type: BLOOD SPECIMENOrdering Facility: [facility] Address: [address] [place] [address] Result Comment: No e vidence of recent infection with Hepatitis A virus. Performed By: #### 1 975-2, 51516-1, 06466-9, 5195-3 ####[facility] LABCLIA [id number] [place] [id number] [place] HBV core IgM Ser Qlon 2024 HBV core IgM Ql (S) Negative Normal Negative [facility] Comment on above: Order Comment: Speci men Type: BLOOD SPECIMENOrdering Facility: [facility] Address: [address] [place] [place] [address] Result Comment: No e vidence of recent infection with Hepatitis B virus. Should recent infection be suspected, repeat testing may be considered 3-4 weeks after this draw. Performed By: #### 1 975-2, 92627-5, 77974-0, 5195-3 ####[facility] LABCLIA [id number] [place] [address] [place] HBV surface Ag Ser Qlon 06-13 HBV surface Ag Ql (S) Negative Normal Negative [facility] Comment on above: Order Comment: Speci men Type: BLOOD SPECIMENOrdering Facility: [facility] Address: [address] [place] [address] Performed By: #### 1 975-2, 29140-2, 75029-2, 5195-3 ####[facility] LABCLIA [id number] [place] [address] [place] HCV RNA BIMAL+probe Qnon 07-04 HCV RNA BIMAL+probe Ql Not detected Normal Not detected [facility] Comment on above: Order Comment: Speci men Type: BLOOD SPECIMEN [facility] Address: [address] [place] [place] [address] Performed By: #### 1 1011-4 #### [facility] CLIA [id number] [address] [place] [address] [place] Lipase SerPl-cCncon 07-05-19 25 Lipase [Catalytic activity/Vol] 26 U/L Normal 16-61 [facility] Comment on above: Order Comment: Speci men Type: BLOOD SPECIMENOrdering Facility: [facility] Address: [address] [place] [place] [id number] Performed By: #### H CGED, 3040-3, 05706-8 ####[facility] [id number] [place] [address] [place] Pacemaker Checkon 07-04-2024 Pacemaker Check Normal [facility] TRICHOMONAS VAGINALIS NAATon 07-04-2024 T. vaginalis DNA BIMAL+probe Ql (Unsp spec) Not detected Normal Not detected [facility] Comment on above: Order Comment: Speci men Type: BLOOD SPECIMEN [facility] Address: [address] [place], [place] [address] [address] Performed By: #### 5 8410-2 #### [facility] CLIA [id number] [address] [place] [address] [place] US FEMALE PELV TRANSABD COMP LETEon 07-04-2024 FEMALE PELV TRANSABD COMPLETE * * *Final Report* * * DATE OF EXAM: Jul 04 2024 9:32PM [facility] 1065 - US FEMALE PELV TRANSABD COMPLETE / PROCEDURE REASON: 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 Images were obtained and stored in a permanent archive. MQ: [facility]_2021 COMPARISON: CT abdomen and pelvis same [...] reportedly surgically absent. 3. Moderate pelvic ascites. 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 Images were obtained and stored in a permanent archive. MQ: [facility]_2021 COMPARISON: CT abdomen and pelvis same [...] reportedly surgically absent. 3. Moderate pelvic ascites. Manager Of Clinical: KIM Transcribe Date/Time: Jul 05 2024 12:55A Dictated by : ANASTASIA MEADOWS DO This examination was interpreted and the report reviewed and electronically signed by: ANASTASIA MEADOWS DO on Jul 05 2024 1:06AM EST [id number] Normal [facility] Urinalysis complete panel (U )on 07-04-2024 Bilirubin Ql (U) Negative Normal Negative [facility] Comment on above: Order Comment: Speci men Type: URINE SPECIMENOrdering Facility: [facility] Address: [address] [place] [address] Performed By: #### 2 4356-8 ####[facility] [id number] [place] [address] [place] Clarity (Unsp spec) Clear Normal Clear [facility] Comment on above: Order Comment: Speci men Type: URINE SPECIMENOrdering Facility: [facility] Address: [address] [place] [address] Performed By: #### 2 4356-8 ####[facility] [id number] [address] [place] Color (U) Yellow Normal Yellow [facility] Comment on above: Order Comment: Speci men Type: URINE SPECIMENOrdering Facility: [facility] Address: [address] [place] [address] Performed By: #### 2 4356-8 ####[facility] [id number] [address] Epithelial cells LM.HPF (Urine sed) [#/Area] Few Normal [facility] Comment on above: Order Comment: Speci men Type: URINE SPECIMENOrdering Facility: [facility] Address: [address] [place] [address] Performed By: #### 2 4356-8 ####[facility] [id number] [place] [address] [place] [facility] [place] Glucose Test strip (U) [Mass/Vol] Negative Normal Negative [facility] Comment on above: Order Comment: Speci men Type: URINE SPECIMENOrdering Facility: [facility] Address: [address] [place] [place] [address] Performed By: #### 2 4356-8 ####[facility] [id number] [place] [address] [place] Hemoglobin Ql (U) 1+ Abnormal Negative [facility] Comment on above: Order Comment: Speci men Type: URINE SPECIMENOrdering Facility: [facility] Address: [address] [place] [address] Performed By: #### 2 4356-8 ####[facility]IA [id number] [place] [address] [place] Ketones Ql (U) Negative Normal Negative [facility] Comment on above: Order Comment: Speci men Type: URINE SPECIMENOrdering Facility: [facility] Address: [address] [place] [place] [address] Performed By: #### 2 4356-8 ####[facility] [id number] [place] [address] [place] Leukocyte esterase Test strip Ql (U) Negative Normal Negative [facility] Comment on above: Order Comment: Speci men Type: URINE SPECIMENOrdering Facility: [facility] Address: [address] [place] [place] [address] Performed By: #### 2 4356-8 ####[facility] LABORATORYCLIA [id number] [place] [address] [place] Nitrite Ql (U) Negative Normal Negative [facility] Comment on above: Order Comment: Speci men Type: URINE SPECIMENOrdering Facility: [facility] Address: [address] [place] [address] Performed By: #### 2 4356-8 ####[facility] LABORATORYCLIA [id number] [place] [address] [place] pH (U) 6.0 [pH] Normal 5.0-8.0 [facility] Comment on above: Order Comment: Speci men Type: URINE SPECIMENOrdering Facility: [facility] Address: [address] [place] [address] Performed By: #### 2 4356-8 ####[facility] LABORATORYCLIA [id number] [place] [address] [place] Protein (U) [Mass/Vol] Negative Normal Negative [facility] Comment on above: Order Comment: Speci men Type: URINE SPECIMENOrdering Facility: [facility] Address: [address] [place] [address] Performed By: #### 2 4356-8 ####[facility] LABORATORYCLIA [id number] [place] [address] [place] [facility] RBC LM.HPF (Urine sed) [#/Area] 0-3 /HPF Normal 0-3 /HPF [facility] Comment on above: Order Comment: Speci men Type: URINE SPECIMENOrdering Facility: [facility] Address: [address] [place] [address] Performed By: #### 2 4356-8 ####[facility] LABORATORYCLIA [id number] [address] [place] Specific gravity (U) [Rel density] 1.010 Normal 1.005-1.03 0 [facility] Comment on above: Order Comment: Speci men Type: URINE SPECIMENOrdering Facility: [facility] Address: [address] [place] [address] Performed By: #### 2 4356-8 ####[facility] LABORATORYCLIA [id number] [address] Urobilinogen Ql (U) 0.2 EU/dL Normal 0.2-1.0 EU/dL [facility] Comment on above: Order Comment: Speci men Type: URINE SPECIMENOrdering Facility: [facility] Address: [address] [place] [address] Performed By: #### 2 4356-8 ####[facility] LABORATORYCLIA [id number] [address] WBC LM.HPF (Urine sed) [#/Area] 0-5 /HPF Normal 0-5 /HPF [facility] Comment on above: Order Comment: Speci men Type: URINE SPECIMENOrdering Facility: [facility] Address: [address] [place] [place] [address] Performed By: #### 2 4356-8 ####[facility] LABORATORYCLIA [id number] [place] [address] [place] [facility] [place] Abdomen/Pelvis W IV Cont ONL Yon 07-03-2024 Abdomen/Pelvis W IV Cont ONLY Normal [facility] Absolute lymphocyte countOrd ered By: Nabor Frey on 07-03-2024 Lymphocytes Auto (Unsp spec) [#/Vol] 0.93 10*3/uL 0.83-4.51 [facility] Absolute neutrophil countOrd ered By: Nabor Frey on 07-03-2024 Neutrophils (Bld) [#/Vol] 20.3 10*3/uL High 2.0-7.7 [facility] Anion gap in Serum or Plasma Ordered By: Nabor Frey on 07-03-2024 Anion gap [Moles/Vol] 10 mmol/L 5- [facility] Automated lymphocyte count a s percentage of total leukocytesOrdered By: Nabor Frey on 07-03-2024 Lymphocytes/100 WBC Auto (Unsp spec) 4.2 % Low - [facility] BUN/creatinine ratioOrdered By: Nabor Frey on 07-03-2024 Urea nitrogen/Creatinine [Mass ratio] 17.1 mg/mg - [facility] Basic Metabolic Profile (BMP )on 07-03-2024 BUN/CRE 17.1 RATIO Normal - [facility] Comment on above: Performed By: #### L 501.2450, L700.6800, L500.2500, L500.3400, L100.0100 ####[facility] [address] [place], [address] Calcium [Mass/Vol] 9.3 mg/dL Normal 7.6-11.0 [facility] Comment on above: Performed By: #### L 501.2450, L700.6800, L500.2500, L500.3400, L100.0100 ####[facility] [address] [place], [address] Chloride [Moles/Vol] 106 mmol/L Normal 98-108 [facility] Comment on above: Performed By: #### L 501.2450, L700.6800, L500.2500, L500.3400, L100.0100 ####[facility] [address] [place], [address] CO2 [Moles/Vol] 21.4 mmol/L Normal 21.0-32.0 [facility] Comment on above: Performed By: #### L 501.2450, L700.6800, L500.2500, L500.3400, L100.0100 ####[facility] [address] [place], [address] Creatinine [Mass/Vol] 0.81 mg/dL Normal 0.70-1.20 [facility] Comment on above: Performed By: #### L 501.2450, L700.6800, L500.2500, L500.3400, L100.0100 ####[facility] [address] [place], [address] ECRCL 76.53 ml/min Normal 50-250 [facility] Comment on above: Performed By: #### L 501.2450, L700.6800, L500.2500, L500.3400, L100.0100 ####[facility] [address] [place], [address] GAP 10 Normal 5-15 [facility] Comment on above: Performed By: #### L 501.2450, L700.6800, L500.2500, L500.3400, L100.0100 ####[facility] [address] [place], [address] GFR/1.73 sq M.predicted among non-blacks MDRD (S/P/Bld) [Vol rate/Area] 91 mL/min/{1.73_m2} Normal >60 [facility] Comment on above: Result Comment: mL/m in/1.73m2 CKD-EPI Creatinine Equation (2020) Performed By: #### L 501.2450, L700.6800, L500.2500, L500.3400, L100.0100 ####[facility] [address] [place], [address] Glucose [Mass/Vol] 104 mg/dL High 70-99 [facility] Comment on above: Performed By: #### L 501.2450, L700.6800, L500.2500, L500.3400, L100.0100 ####[facility] [address] [place], [address] Potassium [Moles/Vol] 4.4 mmol/L Normal 3.3-5.1 [facility] Comment on above: Performed By: #### L 501.2450, L700.6800, L500.2500, L500.3400, L100.0100 ####[facility] [address] [place], [address] Sodium [Moles/Vol] 138 mmol/L Normal 133-145 [facility] Comment on above: Performed By: #### L 501.2450, L700.6800, L500.2500, L500.3400, L100.0100 ####[facility] [address] [place], [address] Urea nitrogen [Mass/Vol] 14 mg/dL Normal 4-19 [facility] Comment on above: Performed By: #### L 501.2450, L700.6800, L500.2500, L500.3400, L100.0100 ####[facility] [address] [place], [address] Basophil percentageOrdered B y: Nabor Frey on 07-03-2024 Basophils/100 WBC (Bld) 0.2 % 0-1 [facility] Bilirubin Test strip Ql (U)O rdered By: Nabor Frey on 07-03-2024 Bilirubin Ql (U) Negative Negative [facility] Bilirubin directOrdered By: Nabor Frey on 07-03-2024 Bilirubin.direct [Mass/Vol] 0.27 mg/dL 0.00-0.30 [facility] Bilirubin, totalOrdered By: Nabor Frey on 07-03-2024 Bilirubin [Mass/Vol] 0.64 mg/dL 0.00-1.30 [facility] CBC W/Diff, Automatedon 06-13 Absolute Lymph 0.93 X10 3/uL Normal 0.83-4.51 [facility] Comment on above: Performed By: #### L 501.2450, L700.6800, L500.2500, L500.3400, L100.0100 ####[facility] [address] [place], [address] Absolute Neut 20.3 X10 3/uL High 2.0-7.7 [facility] Comment on above: Performed By: #### L 501.2450, L700.6800, L500.2500, L500.3400, L100.0100 ####[facility] [address] [place], [address] Basophils/100 WBC (Bld) 0.2 % Normal 0-1 [facility] Comment on above: Performed By: #### L 501.2450, L700.6800, L500.2500, L500.3400, L100.0100 ####[facility] [address] [place], [address] Eosinophils/100 WBC (Bld) 0.1 % Normal 0-5 [facility] Comment on above: Performed By: #### L 501.2450, L700.6800, L500.2500, L500.3400, L100.0100 ####[facility] [address] [place], [address] Erythrocyte distribution width (RBC) [Ratio] 15.3 % High 11.6-14.6 [facility] Comment on above: Performed By: #### L 501.2450, L700.6800, L500.2500, L500.3400, L100.0100 ####[facility] [address] [place], [address] Hematocrit (Bld) [Volume fraction] 41.5 % Normal 37-47 [facility] Comment on above: Performed By: #### L 501.2450, L700.6800, L500.2500, L500.3400, L100.0100 ####[facility] [address] [place], [address] Hemoglobin (Bld) [Mass/Vol] 13.8 g/dL Normal 12.0-15.0 [facility] Comment on above: Performed By: #### L 501.2450, L700.6800, L500.2500, L500.3400, L100.0100 ####[facility] [address] [place], [address] IG% 0.900 Normal 0.0-0.9 [facility] Comment on above: Result Comment: IG% - Immature Granulocytes (promyelocytes, myelocytes andmetamyelocytes) > 1% indicates that a LEFT SHIFT is Present. Performed By: #### L 501.2450, L700.6800, L500.2500, L500.3400, L100.0100 ####[facility] [address] [place], [address] Lymphocytes/100 WBC (Bld) 4.2 % Low 19-41 [facility] Comment on above: Performed By: #### L 501.2450, L700.6800, L500.2500, L500.3400, L100.0100 ####[facility] [address] [place], [address] MCH (RBC) [Entitic mass] 32.6 pg High 27.0-32.0 [facility] Comment on above: Performed By: #### L 501.2450, L700.6800, L500.2500, L500.3400, L100.0100 ####[facility] [address] [place], [address] MCHC (RBC) [Mass/Vol] 33.3 g/dL Normal 32-36 [facility] Comment on above: Performed By: #### L 501.2450, L700.6800, L500.2500, L500.3400, L100.0100 ####[facility] [address] [place], [address] MCV (RBC) [Entitic vol] 98.1 fL Normal 81-99 [facility] Comment on above: Performed By: #### L 501.2450, L700.6800, L500.2500, L500.3400, L100.0100 ####[facility] [address] [place], [address] Monocytes/100 WBC (Bld) 2.6 % Normal 0-10 [facility] Comment on above: Performed By: #### L 501.2450, L700.6800, L500.2500, L500.3400, L100.0100 ####[facility] [address] [place], [address] Neutrophils/100 WBC (Bld) 92.0 % High 47-70 [facility] Comment on above: Performed By: #### L 501.2450, L700.6800, L500.2500, L500.3400, L100.0100 ####[facility] [address] [place], [address] Nucleated RBC (Bld) [#/Vol] 0 10*3/uL Normal 0-5 [facility] Comment on above: Performed By: #### L 501.2450, L700.6800, L500.2500, L500.3400, L100.0100 ####[facility] [address] [place], [address] Platelet mean volume (Bld) [Entitic vol] 11.2 fL Normal 6.2-12.0 [facility] Comment on above: Performed By: #### L 501.2450, L700.6800, L500.2500, L500.3400, L100.0100 ####[facility] [address] [place], [address] Platelets (Bld) [#/Vol] 237 10*3/uL Normal 150-450 [facility] Comment on above: Performed By: #### L 501.2450, L700.6800, L500.2500, L500.3400, L100.0100 ####[facility] [address] [place], [address] RBC (Bld) [#/Vol] 4.23 10*6/uL Normal 4.2-5.4 [facility] Comment on above: Performed By: #### L 501.2450, L700.6800, L500.2500, L500.3400, L100.0100 ####[facility] [address] [place], [address] RDW SD 54.4 fl High 35.1-43.9 [facility] Comment on above: Performed By: #### L 501.2450, L700.6800, L500.2500, L500.3400, L100.0100 ####[facility] [address] [place], [address] WBC (Bld) [#/Vol] 22.0 10*3/uL High 4.4-11.0 [facility] Comment on above: Performed By: #### L 501.2450, L700.6800, L500.2500, L500.3400, L100.0100 ####[facility] [address] [place], [address] Carbon dioxide, total [Moles /volume] in Central venous bloodOrdered By: Nabor Frey on 07-03-2024 CO2 [Moles/Vol] 21.4 mmol/L 21.0-32.0 [facility] Chloride assayOrdered By: Carlton Frey on 07-03-2024 Chloride [Moles/Vol] 106 mmol/L 98-108 [facility] Emergency Department Summary on 07-03-2024 Emergency Department Summary Normal [facility] Eosinophil percentageOrdered By: Nabor Frey on 07-03-2024 Eosinophils/100 WBC (Bld) 0.1 % 0-5 [facility] Erythrocyte distribution wid th ratioOrdered By: Nabor Frey on 07-03-2024 Erythrocyte distribution width (RBC) [Ratio] 15.3 % High 11.6-14.6 [facility] Erythrocyte distribution wid th standard deviationOrdered By: Nabor Frey on 07-03-2024 Erythrocyte distribution width (RBC) [Ratio] 54.4 fl High 35.1-43.9 [facility] Gastroenterology Visit Repor ton 07-03-2024 Gastroenterology Visit Report Normal [facility] Glomerular filtration rate ( GFR) estimation/1.73 sq m using serum, plasma, or whole bOrdered By: Nabor Frey on 07-03-2024 GFR/1.73 sq M.predicted among non-blacks MDRD (S/P/Bld) [Vol rate/Area] 91 mL/min/{1.73_m2} >60 [facility] Comment on above: mL/min/1.73m2 CKD-EP I Creatinine Equation (2020) Hematocrit Auto (Bld) [Volum e fraction]Ordered By: Nabor Frey on 07-03-2024 Hematocrit (Bld) [Volume fraction] 41.5 % 37-47 [facility] Hemoglobin measurementOrdere d By: Nabor Frey on 07-03-2024 Hemoglobin (Bld) [Mass/Vol] 13.8 g/dL 12.0-15.0 [facility] Immature granulocytes/100 WB C Auto (Bld)Ordered By: Nabor Frey on 07-03-2024 Immature granulocytes/100 WBC (Bld) 0.900 % 0.0-0.9 [facility] Comment on above: IG% - Immature Granu locytes (promyelocytes, myelocytes and metamyelocytes) > 1% indicates that a LEFT SHIFT is Present. Ketones Test strip Ql (U)Ord ered By: Nabor Frey on 07-03-2024 Ketones Ql (U) Negative Negative [facility] Laboratory - Chemistry and C hemistry - challengeOrdered By: Nabor Frey on 07-03-2024 AST [Catalytic activity/Vol] 33 U/L High <32 [facility] Lipaseon 07-03-2024 Lipase [Catalytic activity/Vol] 25 U/L Normal 13-75 [facility] Comment on above: Result Comment: Plea note:LIPASE revised reference range effective 22.New Lipase methodology. Expected to produce lower valuesthan the previous assay method.NEW Reference Range: 13 - 75 U/L Performed By: #### L 501.2450, L700.6800, L500.2500, L500.3400, L100.0100 ####[facility] [address] [place], [address] Lipase measurementOrdered By : Nabor Frey on 07-03-2024 Lipase [Catalytic activity/Vol] 25 U/L 13-75 [facility] Comment on above: Please note:LIPASE r evised reference range effective 22. New Lipase methodology. Expected to produce lower values than the previous assay method. NEW Reference Range: 13 - 75 U/L Liver Profileon 07-03-2024 Albumin [Mass/Vol] 4.2 g/dL Normal 3.5-5.0 [facility] Comment on above: Performed By: #### L 501.2450, L700.6800, L500.2500, L500.3400, L100.0100 ####[facility] [address] [place], [address] ALK PHOS 111 U/L High 35-104 [facility] Comment on above: Performed By: #### L 501.2450, L700.6800, L500.2500, L500.3400, L100.0100 ####[facility] [address] [place], [address] ALT [Catalytic activity/Vol] 33 U/L Normal <=34 [facility] Comment on above: Performed By: #### L 501.2450, L700.6800, L500.2500, L500.3400, L100.0100 ####[facility] [address] [place], [address] AST [Catalytic activity/Vol] 33 U/L High <=31 [facility] Comment on above: Performed By: #### L 501.2450, L700.6800, L500.2500, L500.3400, L100.0100 ####[facility] [address] [place], [address] Bilirubin [Mass/Vol] 0.64 mg/dL Normal 0.00-1.30 [facility] Comment on above: Performed By: #### L 501.2450, L700.6800, L500.2500, L500.3400, L100.0100 ####[facility] [address] [place], [address] Bilirubin.direct [Mass/Vol] 0.27 mg/dL Normal 0.00-0.30 [facility] Comment on above: Performed By: #### L 501.2450, L700.6800, L500.2500, L500.3400, L100.0100 ####[facility] [address] [place], [address] Globulin (S) [Mass/Vol] 2.3 g/dL Normal 2.2-4.2 [facility] Comment on above: Performed By: #### L 501.2450, L700.6800, L500.2500, L500.3400, L100.0100 ####[facility] [address] [place], [address] T PROT 6.5 g/dL Normal 5.9-8.4 [facility] Comment on above: Performed By: #### L 501.2450, L700.6800, L500.2500, L500.3400, L100.0100 ####[facility] [address] [place], [place], [address] MCV (mean corpuscular volume ) determinationOrdered By: Nabor Frey on 07-03-2024 MCV (RBC) [Entitic vol] 98.1 fL 81-99 [facility] Mean corpuscular hemoglobin (MCH) determinationOrdered By: Nabor Frey on 07-03-2024 MCH (RBC) [Entitic mass] 32.6 pg High 27.0-32.0 [facility] Mean corpuscular hemoglobin concentration (MCHC) determinationOrdered By: Nabor Frey on 07-03-2024 MCHC (RBC) [Mass/Vol] 33.3 g/dL 32-36 [facility] Mean platelet volume determi nationOrdered By: Nabor Frey on 07-03-2024 Platelet mean volume (Bld) [Entitic vol] 11.2 fL 6.2-12.0 [facility] Microscopic analysis of urin e for red blood cells (RBC)Ordered By: Nabor Frey on 07-03-2024 Microscopic analysis of urine for red blood cells (RBC) 0-5 SEEN /hpf 0-5 [facility] Monocyte percentageOrdered B y: Nabor Frey on 07-03-2024 Monocytes/100 WBC (Bld) 2.6 % 0-10 [facility] Mucus LM Ql (Urine sed)Order ed By: Nabor Frey on 07-03-2024 Mucus Ql (Urine sed) 0 SEEN /hpf [facility] Neutrophil percentageOrdered By: Nabor Frey on 07-03-2024 Neutrophils/100 WBC (Bld) 92.0 % High 47-70 [facility] Nitrite Test strip Ql (U)Ord ered By: Nabor Frey on 07-03-2024 Nitrite Ql (U) Negative Negative [facility] No Panel InformationOrdered By: Nabor Frey on 07-03-2024 33 U/L High <32 [facility] Nucleated red blood cell per centageOrdered By: Nabor Frey on 07-03-2024 Nucleated RBC/100 WBC (Bld) [Ratio] 0 % 0-5 [facility] Platelet countOrdered By: Carlton Frey on 07-03-2024 Platelets (Bld) [#/Vol] 237 10*3/uL 150-450 [facility] Potassium measurement (mass/ volume)Ordered By: Nabor Frey on 07-03-2024 Potassium (Unsp spec) [Mass/Vol] 4.4 mmol/L 3.3-5.1 [facility] ,Serum,hCG Quali.on 07-03-2024 HCG, SERUM QUAL Negative Normal [facility] Comment on above: Performed By: #### L 501.2450, L700.6800, L500.2500, L500.3400, L100.0100 ####[facility] [address] [place], [address] Protein Test strip Ql (U)Ord ered By: Nabor Frey on 07-03-2024 Protein Ql (U) 30 mg/dl High Negative [facility] RBC Auto (Bld) [#/Vol]Ordere d By: Nabor Frey on 07-03-2024 RBC (Bld) [#/Vol] 4.23 10*6/uL 4.2-5.4 [facility] Serum beta-hCG test, qualita tiveOrdered By: Nabor Frey on 07-03-2024 Beta HCG ( test) Ql Negative [facility] Serum creatinine measurement (mass/volume)Ordered By: Nabor Frey on 07-03-2024 Creatinine [Mass/Vol] 0.81 mg/dL 0.70-1.20 [facility] Serum globulin measurementOr dered By: Nabor Frey on 07-03-2024 Globulin (S) [Mass/Vol] 2.3 g/dL 2.2-4.2 [facility] Serum glucose measurement (m ass/volume)Ordered By: Nabor Frey on 07-03-2024 Glucose [Mass/Vol] 104 mg/dL High 70-99 [facility] Serum or plasma alanine hair otransferase (ALT) measurementOrdered By: Nabor Frey on 07-03-2024 ALT [Catalytic activity/Vol] 33 U/L <35 [facility] Serum or plasma albumin leslie urement (mass/volume)Ordered By: Nabor Frey on 07-03-2024 Albumin [Mass/Vol] 4.2 g/dL 3.5-5.0 [facility] Serum or plasma alkaline delfin sphatase measurementOrdered By: Nabor Frey on 07-03-2024 ALP [Catalytic activity/Vol] 111 U/L High 35-104 [facility] Serum or plasma calcium leslie urement (mass/volume)Ordered By: Nabor Frey on 07-03-2024 Calcium [Mass/Vol] 9.3 mg/dL 7.6-11.0 [facility] Serum or plasma urea nitroge n measurement (mass/volume)Ordered By: Nabor Frey on 07-03-2024 Urea nitrogen [Mass/Vol] 14 mg/dL 4-19 [facility] Sodium levelOrdered By: Charli Frey on 07-03-2024 Sodium [Moles/Vol] 138 mmol/L 133-145 [facility] Squamous epithelial cells de tection in urine sediment by light microscopyOrdered By: Nabor Frey on 07-03-2024 Epithelial cells.squamous LM Ql (Urine sed) 10-25 SEEN /hpf 5-10 [facility] Total proteinOrdered By: Juan Daniel Frey on 07-03-2024 Protein [Mass/Vol] 6.5 g/dL 5.9-8.4 [facility] Urinalysis, Completeon 07-03 BILIRUBIN URINE Negative Normal Negative [facility] Comment on above: Order Comment: CLEAN CATCH Performed By: #### L 400.0001 ####[facility] [address] [place], [place], [address] Clarity (U) Sl. Cloudy Normal Clear [facility] Comment on above: Order Comment: CLEAN CATCH Performed By: #### L 400.0001 ####[facility] [address] [place], [address] Color (U) Yellow Normal Yellow [facility] Comment on above: Order Comment: CLEAN CATCH Performed By: #### L 400.0001 ####[facility] [address] [place], [address] GLUCOSE, UR Normal Normal Normal [facility] Comment on above: Order Comment: CLEAN CATCH Performed By: #### L 400.0001 ####[facility] [address] [facility] [address] KETONE UR Negative Normal Negative [facility] Comment on above: Order Comment: CLEAN CATCH Performed By: #### L 400.0001 ####[facility] [address] [place] [id number] LEUK ESTERASE Negative Normal Negative [facility] Comment on above: Order Comment: CLEAN CATCH Performed By: #### L 400.0001 ####[facility] [address] [place] [address] Nitrite Ql (U) Negative Normal Negative [facility] Comment on above: Order Comment: CLEAN CATCH Performed By: #### L 400.0001 ####[facility] [address] [facility] [address] OCCULT BLOOD-UR 25 /ul Abnormal Negative [facility] Comment on above: Order Comment: CLEAN CATCH Performed By: #### L 400.0001 ####[facility] [address] [place], [address] pH UR 6.5 Normal 5.0 - 8.0 [facility] Comment on above: Order Comment: CLEAN CATCH Performed By: #### L 400.0001 ####[facility] [address] [facility] [address] PROT DIPSTX 30 mg/dl Abnormal Negative [facility] Comment on above: Order Comment: CLEAN CATCH Performed By: #### L 400.0001 ####[facility] [address] [facility] [address] SP.GR. DIPSTX 1.010 Normal 1.002-1.03 0 [facility] Comment on above: Order Comment: CLEAN CATCH Performed By: #### L 400.0001 ####[facility] [address] [place], [place], [id number] UROBILI Normal Normal Normal [facility] Comment on above: Order Comment: CLEAN CATCH Performed By: #### L [id number] ####[facility] [address] [place], [place], [id number] Urine clarityOrdered By: Juan Daniel Frey on 07-03-2024 Clarity (U) Sl. Cloudy Clear [facility] Urine color determinationOrd ered By: Nabor Frey on 07-03-2024 Color (U) Yellow Yellow [facility] Urine glucose detectionOrder ed By: Nabor Frey on 07-03-2024 Glucose Ql (U) Normal mg/dl Normal [facility] Urine leukocyte esterase det ection by dipstickOrdered By: Nabor Frey on 07-03-2024 Leukocyte esterase Test strip Ql (U) Negative Negative [facility] Urine pHOrdered By: Nabor segal on 07-03-2024 pH (U) 6.5 [pH] 5.0 - 8.0 [facility] Urine sediment bacteria coun t by microscopy (number/high power field)Ordered By: Nabor Frey on 07-03-2024 Bacteria LM.HPF (Urine sed) [#/Area] 1 /[HPF] None Seen [facility] Urine specific gravity measu rementOrdered By: Nabor Frey on 07-03-2024 Specific gravity (U) [Rel density] 1.010 1.002-1.03 0 [facility] Urine urobilinogen measureme ntOrdered By: Nabor Frey on 07-03-2024 Urobilinogen Ql (U) Normal mg/dl Normal [facility] White blood cell (WBC) count Ordered By: Nabor Frey on 07-03-2024 WBC (Bld) [#/Vol] 22.0 10*3/uL High 4.4-11.0 [facility] White blood cell countOrdere d By: Nabor Frey on 07-03-2024 White blood cell count 0-5 SEEN /hpf 0-5 [facility] 36on 07-01-2024 36 Your fax has been successfully sent to Dr. Wilkinson at [phone]. From: Ella Cohen RN 07/01/2024 3:37:02 PM Origin Record Created by SHANTE 07/01/2024 3:37:12 PM Conversion [[id number]] Type: application/postscript G3 to TIFF #1: Success [image/g3] (77ms) GhostScript TIFF #1: Success [image/tiff] (209ms) ([id number]) 07/01/2024 3:37:18 PM Transmission Record Sent to [id number] with remote ID [phone] Result: Success Page record: 1 - 3 Elapsed time: 01:39 on channel 48 07/01/2024 3:37:19 PM Conversion Successfully created cover sheet. Type: application/vnd.openxmlf ormats-officedocument. rdprocessingml.document G3 to TIFF #1: Success [image/g3] (11ms) GhostScript TIFF #1: Success [image/tiff] (70ms) Resubmitted: [application/postscript] Word Automation #1: Success [image/g3] (1519ms) ([id number]) [facility] 36 S: Patient spoke wit h CAC [...] smelled fecal. 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 R: Patient understands care advice to go to ED now or call 911. Patient states she cannot leave her child at this time, but will go as soon as she has someone to take over care. Patient strongly advised to go immediately. She advises she will go to [place]. No further needs at this time. Patient [...] menstrual period? no Protocols used: Abdominal Pain- [id number]-[id number] Normal [facility] Abdomen/Pelvis W IV Cont ONL Yon 07-01-2024 Abdomen/Pelvis W IV Cont ONLY Normal [facility] Absolute lymphocyte countOrd ered By: Anita Willis on 07-01-2024 Lymphocytes Auto (Unsp spec) [#/Vol] 0.97 10*3/uL 0.83-4.51 [facility] Absolute neutrophil countOrd ered By: Anita Willis on 07-01-2024 Neutrophils (Bld) [#/Vol] 11.3 10*3/uL High 2.0-7.7 [facility] Anion gap in Serum or Plasma Ordered By: Anita Willis on 07-01-2024 Anion gap [Moles/Vol] 12 mmol/L 5-15 [facility] Automated lymphocyte count a s percentage of total leukocytesOrdered By: Anita Willis on 07-01-2024 Lymphocytes/100 WBC Auto (Unsp spec) 7.5 % Low 19-41 [facility] BUN/creatinine ratioOrdered By: Anita Willis on 07-01-2024 Urea nitrogen/Creatinine [Mass ratio] 14.9 mg/mg 10-20 [facility] Basophil percentageOrdered B y: Anita Willis on 07-01-2024 Basophils/100 WBC (Bld) 0.4 % 0-1 [facility] Beta HCG ( test) Ql Ordered By: Anita Willis on 07-01-2024 Serum Test, Qualitative Negative [facility] Bilirubin Test strip Ql (U)O rdered By: Anita Willis on 07-01-2024 Bilirubin Ql (U) Negative Negative [facility] Bilirubin, totalOrdered By: Anita Willis on 07-01-2024 Bilirubin [Mass/Vol] 0.66 mg/dL Normal 0.00-1.30 [facility] Comment on above: Performed By: #### L 500.4050, L700.6800, L100.0100, L501.2450 ####[facility] [address] [place], [address] CBC W/Diff, Automatedon 04-2 0-2024 Absolute Lymph 0.97 X10 3/uL Normal 0.83-4.51 [facility] Comment on above: Performed By: #### L 500.4050, L700.6800, L100.0100, L501.2450 ####[facility] [address] [place], [address] Absolute Neut 11.3 X10 3/uL High 2.0-7.7 [facility] Comment on above: Performed By: #### L 500.4050, L700.6800, L100.0100, L501.2450 ####[facility] [address] [place], [address] Basophils/100 WBC (Bld) 0.4 % Normal 0-1 [facility] Comment on above: Performed By: #### L 500.4050, L700.6800, L100.0100, L501.2450 ####[facility] [address] [place], [address] Eosinophils/100 WBC (Bld) 0.9 % Normal 0-5 [facility] Comment on above: Performed By: #### L 500.4050, L700.6800, L100.0100, L501.2450 ####[facility] [address] [place], [address] Erythrocyte distribution width (RBC) [Ratio] 14.9 % High 11.6-14.6 [facility] Comment on above: Performed By: #### L 500.4050, L700.6800, L100.0100, L501.2450 ####[facility] [address] [place], [address] Hematocrit (Bld) [Volume fraction] 43.5 % Normal 37-47 [facility] Comment on above: Performed By: #### L 500.4050, L700.6800, L100.0100, L501.2450 ####[facility] [address] [place], [address] Hemoglobin (Bld) [Mass/Vol] 14.7 g/dL Normal 12.0-15.0 [facility] Comment on above: Performed By: #### L 500.4050, L700.6800, L100.0100, L501.2450 ####[facility] [address] [place], [address] IG% 0.400 Normal 0.0-0.9 [facility] Comment on above: Result Comment: IG% - Immature Granulocytes (promyelocytes, myelocytes andmetamyelocytes) > 1% indicates that a LEFT SHIFT is Present. Performed By: #### L 500.4050, L700.6800, L100.0100, L501.2450 ####[facility] [address] [place], [address] Lymphocytes/100 WBC (Bld) 7.5 % Low 19-41 [facility] Comment on above: Performed By: #### L 500.4050, L700.6800, L100.0100, L501.2450 ####[facility] [address] [place], [address] MCH (RBC) [Entitic mass] 32.7 pg High 27.0-32.0 [facility] Comment on above: Performed By: #### L 500.4050, L700.6800, L100.0100, L501.2450 ####[facility] [address] [place], [address] MCHC (RBC) [Mass/Vol] 33.8 g/dL Normal 32-36 [facility] Comment on above: Performed By: #### L 500.4050, L700.6800, L100.0100, L501.2450 ####[facility] [address] [place], [address] MCV (RBC) [Entitic vol] 96.7 fL Normal 81-99 [facility] Comment on above: Performed By: #### L 500.4050, L700.6800, L100.0100, L501.2450 ####[facility] [address] [place], [address] Monocytes/100 WBC (Bld) 3.1 % Normal 0-10 [facility] Comment on above: Performed By: #### L 500.4050, L700.6800, L100.0100, L501.2450 ####[facility] [address] [place], [address] Neutrophils/100 WBC (Bld) 87.7 % High 47-70 [facility] Comment on above: Performed By: #### L 500.4050, L700.6800, L100.0100, L501.2450 ####[facility] [address] [place], [address] Nucleated RBC (Bld) [#/Vol] 0 10*3/uL Normal 0-5 [facility] Comment on above: Performed By: #### L 500.4050, L700.6800, L100.0100, L501.2450 ####[facility] [address] [place], [address] Platelet mean volume (Bld) [Entitic vol] 10.7 fL Normal 6.2-12.0 [facility] Comment on above: Performed By: #### L 500.4050, L700.6800, L100.0100, L501.2450 ####[facility] [address] [place], [address] Platelets (Bld) [#/Vol] 239 10*3/uL Normal 150-450 [facility] Comment on above: Performed By: #### L 500.4050, L700.6800, L100.0100, L501.2450 ####[facility] [address] [place], [address] RBC (Bld) [#/Vol] 4.50 10*6/uL Normal 4.2-5.4 [facility] Comment on above: Performed By: #### L 500.4050, L700.6800, L100.0100, L501.2450 ####[facility] [address] [place], [address] RDW SD 53.1 fl High 35.1-43.9 [facility] Comment on above: Performed By: #### L 500.4050, L700.6800, L100.0100, L501.2450 ####[facility] [address] [place], [address] WBC (Bld) [#/Vol] 12.9 10*3/uL High 4.4-11.0 [facility] Comment on above: Performed By: #### L 500.4050, L700.6800, L100.0100, L501.2450 ####[facility] [address] [place], [address] Carbon dioxide, total [Moles /volume] in Central venous bloodOrdered By: Anita Willis on 07-01-2024 CO2 [Moles/Vol] 19.2 mmol/L Low 21.0-32.0 [facility] Comment on above: Performed By: #### L 500.4050, L700.6800, L100.0100, L501.2450 ####[facility] [address] [place], [address] Chloride assayOrdered By: Reyna Willis on 07-01-2024 Chloride [Moles/Vol] 109 mmol/L High 98-108 [facility] Comment on above: Performed By: #### L 500.4050, L700.6800, L100.0100, L501.2450 ####[facility] [address] [place], [address] Comprehensive Metabolic Prof ilon 07-01-2024 ALK PHOS 116 U/L High 35-104 [facility] Comment on above: Performed By: #### L 500.4050, L700.6800, L100.0100, L501.2450 ####[facility] [address] [place], [address] BUN/CRE 14.9 RATIO Normal 10-20 [facility] Comment on above: Performed By: #### L 500.4050, L700.6800, L100.0100, L501.2450 ####[facility] [address] [place], [address] ECRCL 59.61 ml/min Normal 50-250 [facility] Comment on above: Performed By: #### L 500.4050, L700.6800, L100.0100, L501.2450 ####[facility] [address] [place], [address] GAP 12 Normal 5-15 [facility] Comment on above: Performed By: #### L 500.4050, L700.6800, L100.0100, L501.2450 ####[facility] [address] [place], [address] T PROT 6.7 g/dL Normal 5.9-8.4 [facility] Comment on above: Performed By: #### L 500.4050, L700.6800, L100.0100, L501.2450 ####[facility] [address] [place], [place], [address] Comprehensive Metabolic Prof ilOrdered By: Anita Willis on 07-01-2024 AST [Catalytic activity/Vol] 30 U/L Normal <=31 [facility] Comment on above: Performed By: #### L 500.4050, L700.6800, L100.0100, L501.2450 ####[facility] [address] [place], [place], [address] Emergency Department Summary on 07-01-2024 Emergency Department Summary Normal [facility] Eosinophil percentageOrdered By: Anita Willis on 07-01-2024 Eosinophils/100 WBC (Bld) 0.9 % 0-5 [facility] Epithelial cells.squamous LM Ql (Urine sed)Ordered By: Anita Willis on 07-01-2024 Epithelial cells.squamous LM.HPF (Urine sed) [#/Area] 0 /[HPF] 5-10 [facility] Erythrocyte distribution wid th (RBC) [Ratio]Ordered By: Anita Willis on 07-01-2024 Erythrocyte distribution width (RBC) [Entitic vol] 53.1 fL High 35.1-43.9 [facility] Erythrocyte distribution wid th ratioOrdered By: Anita Willis on 07-01-2024 Erythrocyte distribution width (RBC) [Ratio] 14.9 % High 11.6-14.6 [facility] Erythrocyte distribution wid th standard deviationOrdered By: Anita Willis on 07-01-2024 Erythrocyte distribution width (RBC) [Ratio] 53.1 fl High 35.1-43.9 [facility] Estimation of creatinine monico aranceOrdered By: Anita Willis on 07-01-2024 Estimated Creatinine Clearance Calc 59.61 ml/min 50-250 [facility] GFR/1.73 sq M.predicted shweta g non-blacks MDRD (S/P/Bld) [Vol rate/Area]Ordered By: Anita Willis on 07-01-2024 Estimated GFR (MDRD) Non-Af Amer 68 >60 [facility] Comment on above: mL/min/1.73m2 CKD-EP I Creatinine Equation (2020) Glomerular filtration rate ( GFR) estimation/1.73 sq m using serum, plasma, or whole bOrdered By: Anita Willis on 07-01-2024 GFR/1.73 sq M.predicted among non-blacks MDRD (S/P/Bld) [Vol rate/Area] 68 mL/min/{1.73_m2} Normal >60 [facility] Comment on above: mL/min/1.73m2 CKD-EP I Creatinine Equation (2020) Result Comment: mL/m in/1.73m2 CKD-EPI Creatinine Equation (2020) Performed By: #### L 500.4050, L700.6800, L100.0100, L501.2450 ####[facility] [address] [place], [address] Glucose Ql (U)Ordered By: Reyna Willis on 07-01-2024 Urine Glucose (UA) Normal mg/dl Normal [facility] Hematocrit Auto (Bld) [Volum e fraction]Ordered By: Anita Willis on 07-01-2024 Hematocrit (Bld) [Volume fraction] 43.5 % 37-47 [facility] Hemoglobin measurementOrdere d By: Anita Willis on 07-01-2024 Hemoglobin (Bld) [Mass/Vol] 14.7 g/dL 12.0-15.0 [facility] Immature granulocytes/100 WB C Auto (Bld)Ordered By: Anita Willis on 07-01-2024 Immature granulocytes/100 WBC (Bld) 0.400 % 0.0-0.9 [facility] Comment on above: IG% - Immature Granu locytes (promyelocytes, myelocytes and metamyelocytes) > 1% indicates that a LEFT SHIFT is Present. Ketones Test strip Ql (U)Ord ered By: Anita Willis on 07-01-2024 Ketones Ql (U) Negative Negative [facility] Lipase measurementOrdered By : Anita Willis on 07-01-2024 Lipase [Catalytic activity/Vol] 35 U/L Normal 13-75 [facility] Comment on above: Please note:LIPASE r evised reference range effective 22. New Lipase methodology. Expected to produce lower values than the previous assay method. NEW Reference Range: 13 - 75 U/L Result Comment: Liam rader note:LIPASE revised reference range effective 22.New Lipase methodology. Expected to produce lower valuesthan the previous assay method.NEW Reference Range: 13 - 75 U/L Performed By: #### L 500.4050, L700.6800, L100.0100, L501.2450 ####[facility] [address] [place], [address] Lymphocytes Auto (Unsp spec) [#/Vol]Ordered By: Anita Willis on 07-01-2024 Lymphocytes (Bld) [#/Vol] 0.97 10*3/uL 0.83-4.51 [facility] Lymphocytes/100 WBC Auto (Un sp spec)Ordered By: Anita Willis on 07-01-2024 Lymphocytes/100 WBC (Bld) 7.5 % Low 19-41 [facility] MCV (mean corpuscular volume ) determinationOrdered By: Anita Willis on 07-01-2024 MCV (RBC) [Entitic vol] 96.7 fL 81-99 [facility] Mean corpuscular hemoglobin (MCH) determinationOrdered By: Anita Willis on 07-01-2024 MCH (RBC) [Entitic mass] 32.7 pg High 27.0-32.0 [facility] Mean corpuscular hemoglobin concentration (MCHC) determinationOrdered By: Anita Willis on 07-01-2024 MCHC (RBC) [Mass/Vol] 33.8 g/dL 32-36 [facility] Mean platelet volume determi nationOrdered By: Anita Willis on 07-01-2024 Platelet mean volume (Bld) [Entitic vol] 10.7 fL 6.2-12.0 [facility] Microscopic analysis of urin e for red blood cells (RBC)Ordered By: Anita Willis on 07-01-2024 Microscopic analysis of urine for red blood cells (RBC) 0-5 SEEN /hpf 0-5 [facility] Urine RBC 0-5 SEEN /hpf 0-5 [facility] Monocyte percentageOrdered B y: Anita Willis on 07-01-2024 Monocytes/100 WBC (Bld) 3.1 % 0-10 [facility] Mucus LM Ql (Urine sed)Order ed By: Anita Willis on 07-01-2024 Mucus Ql (Urine sed) 0 SEEN /hpf [facility] Neutrophil percentageOrdered By: Anita Willis on 07-01-2024 Neutrophils/100 WBC (Bld) 87.7 % High 47-70 [facility] Nitrite Test strip Ql (U)Ord ered By: Anita Willis on 07-01-2024 Nitrite Ql (U) Negative Negative [facility] No Panel InformationOrdered By: Anita Willis on 07-01-2024 30 U/L <32 [facility] Nucleated red blood cell per centageOrdered By: Anita Willis on 07-01-2024 Nucleated RBC/100 WBC (Bld) [Ratio] 0 % 0-5 [facility] Platelet countOrdered By: Reyna Willis on 07-01-2024 Platelets (Bld) [#/Vol] 239 10*3/uL 150-450 [facility] Potassium measurement (mass/ volume)Ordered By: Anita Willis on 07-01-2024 Potassium (Unsp spec) [Mass/Vol] 4.0 mmol/L 3.3-5.1 [facility] Potassium [Moles/Vol] 4.0 mmol/L Normal 3.3-5.1 [facility] Comment on above: Performed By: #### L 500.4050, L700.6800, L100.0100, L501.2450 ####[facility] [address] [place], [place], [id number] ,Serum,hCG Quali.on 07-01-2024 HCG, SERUM QUAL Negative Normal [facility] Comment on above: Performed By: #### L 500.4050, L700.6800, L100.0100, L501.2450 ####[facility] [address] [place], [address] Protein Test strip Ql (U)Ord ered By: Anita Willis on 07-01-2024 Protein Ql (U) 30 mg/dl High Negative [facility] RBC Auto (Bld) [#/Vol]Ordere d By: Anita Willis on 07-01-2024 RBC (Bld) [#/Vol] 4.50 10*6/uL 4.2-5.4 [facility] Serum beta-hCG test, qualita tiveOrdered By: Anita Willis on 07-01-2024 Beta HCG ( test) Ql Negative [facility] Serum creatinine measurement (mass/volume)Ordered By: Anita Willis on 07-01-2024 Creatinine [Mass/Vol] 1.04 mg/dL Normal 0.70-1.20 [facility] Comment on above: Performed By: #### L 500.4050, L700.6800, L100.0100, L501.2450 ####[facility] [address] [place], [address] Serum globulin measurementOr dered By: Anita Willis on 07-01-2024 Globulin (S) [Mass/Vol] 2.5 g/dL Normal 2.2-4.2 [facility] Comment on above: Performed By: #### L 500.4050, L700.6800, L100.0100, L501.2450 ####[facility] [address] [place], [address] Serum glucose measurement (m ass/volume)Ordered By: Anita Willis on 07-01-2024 Glucose [Mass/Vol] 103 mg/dL High 70-99 [facility] Comment on above: Performed By: #### L 500.4050, L700.6800, L100.0100, L501.2450 ####[facility] [address] [place], [place], [address] Serum or plasma alanine hair otransferase (ALT) measurementOrdered By: Anita Willis on 07-01-2024 ALT [Catalytic activity/Vol] 27 U/L Normal <=34 [facility] Comment on above: Performed By: #### L 500.4050, L700.6800, L100.0100, L501.2450 ####[facility] [address] [place], [place], [id number] Serum or plasma albumin leslie urement (mass/volume)Ordered By: Anita Willis on 07-01-2024 Albumin [Mass/Vol] 4.2 g/dL Normal 3.5-5.0 [facility] Comment on above: Performed By: #### L 500.4050, L700.6800, L100.0100, L501.2450 ####[facility] [address] [place], [place], [id number] Serum or plasma albumin/glob ulin mass ratioOrdered By: Anita Willis on 07-01-2024 Albumin/Globulin [Mass ratio] 1.7 {ratio} Normal 0.9-2.4 [facility] Comment on above: Performed By: #### L 500.4050, L700.6800, L100.0100, L501.2450 ####[facility] [address] [place], [address] Serum or plasma alkaline delfin sphatase measurementOrdered By: Anita Willis on 07-01-2024 ALP [Catalytic activity/Vol] 116 U/L High 35-104 [facility] Serum or plasma calcium leslie urement (mass/volume)Ordered By: Anita Willis on 07-01-2024 Calcium [Mass/Vol] 9.0 mg/dL Normal 7.6-11.0 [facility] Comment on above: Performed By: #### L 500.4050, L700.6800, L100.0100, L501.2450 ####[facility] [address] [place], [address] Serum or plasma urea nitroge n measurement (mass/volume)Ordered By: Anita Willis on 07-01-2024 Urea nitrogen [Mass/Vol] 16 mg/dL Normal 4-19 [facility] Comment on above: Performed By: #### L 500.4050, L700.6800, L100.0100, L501.2450 ####[facility] [address] [place], [address] Sodium levelOrdered By: Dakotah Willis on 07-01-2024 Sodium [Moles/Vol] 139 mmol/L Normal 133-145 [facility] Comment on above: Performed By: #### L 500.4050, L700.6800, L100.0100, L501.2450 ####[facility] [address] [place], [place], [id number] Squamous epithelial cells de tection in urine sediment by light microscopyOrdered By: Anita Willis on 07-01-2024 Epithelial cells.squamous LM Ql (Urine sed) 0-5 SEEN /hpf 5-10 [facility] Total proteinOrdered By: Florin Willis on 07-01-2024 Protein [Mass/Vol] 6.7 g/dL 5.9-8.4 [facility] Urinalysis, Completeon 07-01 BACTERIA 2+ /hpf Normal None Seen [facility] Comment on above: Order Comment: COLLE CTOR TO SPECIFY Performed By: #### L 400.0001 ####[facility] [address] [place], [address] EPI,SQUAMOUS 0-5 SEEN Normal 5-10 [facility] Comment on above: Order Comment: HARITHA CTOR TO SPECIFY Performed By: #### L 400.0001 ####[facility] [address] [place], [address] RBC 0-5 SEEN Normal 0-5 [facility] Comment on above: Order Comment: COLLE CTOR TO SPECIFY Performed By: #### L 400.0001 ####[facility] [address] [place], [address] Mucus Ql (Urine sed) 0 SEEN Normal [facility] Comment on above: Order Comment: HARITHA CTOR TO SPECIFY Performed By: #### L 400.0001 ####[facility] [address] [place], [place], [id number] WBC 0 SEEN Normal 0-5 [facility] Comment on above: Order Comment: HARITHA CTOR TO SPECIFY Performed By: #### L 400.0001 ####[facility] [address] [place], [place], [id number] Urine blood detectionOrdered By: Anita Willis on 07-01-2024 Urine Occult Blood 50 /ul High Negative [facility] Urine clarityOrdered By: Florin Willis on 07-01-2024 Clarity (U) Clear Clear [facility] Urine color determinationOrd ered By: Anita Willis on 07-01-2024 Color (U) Yellow Yellow [facility] Urine glucose detectionOrder ed By: Anita Willis on 07-01-2024 Glucose Ql (U) Normal mg/dl Normal [facility] Urine leukocyte esterase det ection by dipstickOrdered By: Anita Willis on 07-01-2024 Leukocyte esterase Test strip Ql (U) Negative Negative [facility] Urine pHOrdered By: Parag Willis on 07-01-2024 pH (U) 6.0 [pH] 5.0 - 8.0 [facility] Urine sediment bacteria coun t by microscopy (number/high power field)Ordered By: Anita Willis on 07-01-2024 Bacteria LM.HPF (Urine sed) [#/Area] 2 /[HPF] None Seen [facility] Urine specific gravity measu rementOrdered By: Anita Willis on 07-01-2024 Specific gravity (U) [Rel density] 1.010 1.002-1.03 0 [facility] Urine urobilinogen measureme ntOrdered By: Anita Willis on 07-01-2024 Urobilinogen Ql (U) Normal mg/dl Normal [facility] Urobilinogen Ql (U)Ordered B y: Anita Willis on 07-01-2024 Urine Urobilinogen Normal mg/dl Normal [facility] White blood cell (WBC) count Ordered By: Anita Lazaro on 07-01-2024 WBC (Bld) [#/Vol] 12.9 10*3/uL High 4.4-11.0 [facility] White blood cell countOrdere d By: Anita Willis on 07-01-2024 Urine WBC 0 SEEN /hpf 0-5 [facility] White blood cell count 0 SEEN /hpf 0-5 [facility] CBC panel Auto (Bld)on 05-21 Erythrocyte distribution width (RBC) [Ratio] 14.0 % Normal 11.5-15.0 [facility] Comment on above: Order Comment: Speci men Type: BLOOD SPECIMEN Ordering Facility: [facility] Address: [address] [place] [address] Performed By: #### 5 8410-2 #### [facility] CLIA [id number] [address] [place] Hematocrit (Bld) [Volume fraction] 49.4 % High 36.0-46.0 [facility] Comment on above: Order Comment: Speci men Type: BLOOD SPECIMEN Ordering Facility: [facility] Address: [address] [place] [address] Performed By: #### 5 8410-2 #### [facility] CLIA [id number] [address] [place] [address] [place] Hemoglobin (Bld) [Mass/Vol] 16.5 g/dL High 11.5-15.5 [facility] Comment on above: Order Comment: Speci men Type: BLOOD SPECIMEN Ordering Facility: [facility] Address: [address] [place] [address] Performed By: #### 5 8410-2 #### [facility] CLIA [id number] [address] [place] [address] [place] MCH (RBC) [Entitic mass] 32.0 pg Normal 26.0-34.0 [facility] Comment on above: Order Comment: Speci men Type: BLOOD SPECIMEN Ordering Facility: [facility] Address: [address] [place] [address] Performed By: #### 5 8410-2 #### [facility] CLIA [id number] [address] MCHC (RBC) [Mass/Vol] 33.4 g/dL Normal 30.5-36.0 [facility] Comment on above: Order Comment: Speci men Type: BLOOD SPECIMEN Ordering Facility: [facility] Address: [address] [place] [address] Performed By: #### 5 8410-2 #### [facility] CLIA [id number] [address] MCV (RBC) [Entitic vol] 95.7 fL Normal 80.0-100.0 [facility] Comment on above: Order Comment: Speci men Type: BLOOD SPECIMEN Ordering Facility: [facility] Address: [address] [place] [address] Performed By: #### 5 8410-2 #### [facility] CLIA [id number] [address] Nucleated RBC (Bld) [#/Vol] 10*3/uL Normal <0.01 [facility] Comment on above: Order Comment: Speci men Type: BLOOD SPECIMEN Ordering Facility: [facility] Address: [address] [place] [address] Performed By: #### 5 8410-2 #### [facility] CLIA [id number] [address] Platelet mean volume (Bld) [Entitic vol] 10.0 fL Normal 9.0-12.7 [facility] Comment on above: Order Comment: Speci men Type: BLOOD SPECIMEN Ordering Facility: [facility] Address: [address] [place] [address] Performed By: #### 5 8410-2 #### [facility] CLIA [id number] [address] [place] Platelets (Bld) [#/Vol] 288 10*3/uL Normal 150-400 [facility] Comment on above: Order Comment: Speci men Type: BLOOD SPECIMEN Ordering Facility: [facility] Address: [address] [place], [place] [address] Performed By: #### 5 8410-2 #### [facility] CLIA [id number] [address] [place], [place] [address] [place] [address] [place] [facility] RBC (Bld) [#/Vol] 5.16 10*6/uL Normal 3.90-5.20 [facility] Comment on above: Order Comment: Speci men Type: BLOOD SPECIMEN Ordering Facility: [facility] Address: [address] [place], [place] [address] Performed By: #### 5 8410-2 #### [facility] CLIA [id number] [address] WBC (Bld) [#/Vol] 12.02 10*3/uL High 3.70-11.00 [facility] Comment on above: Order Comment: Speci men Type: BLOOD SPECIMEN Ordering Facility: [facility] Address: [address] [place], [place] [address] Performed By: #### 5 8410-2 #### [facility] CLIA [id number] [address] OF [facility] CNCOon 05-21-2024 CNCO Letter Text Normal [facility] CNDSon 05-21-2024 CNDS HNO ID: [id number] Author: DEX WILKINSON MD Service: Family Practice [...] Dex Wilkinson MD Nurse Practitioner: Josie Ovalles APRN.[employer] Consulting: Luis Miguel Vuong MD MY CONDITION [...] call for appointment?: Yes Dex Wilkinson MD [phone] [facility] [address] [place] [phone] PCP Requested Referral GENERAL: alert, no distress, [...] intact., Treatment Team: Nurse Practitioner: Josie Ovalles APRN.MANNEQUIN [employer]ER [employer] FINISHER FOLLOW-UP APPOINTMENTS ALREADY SCHEDULED WITH A [facility] PROVIDER: No future appointments. ALLERGIES Allergen Reactions Prozac [Fluoxetine * Other: See Comments suicidal ideations Ativan [Lorazepam] Vomiting Azithromycin Intolerance [place] Anaphylaxis [place] Anaphylaxis pickles Fish Anaphylaxis Levofloxacin In D5w [...] Your Medications These medications were sent to [facility] [address] [place], [place] [id number] - [address] [place] [address] - [address] [place], [place] [id number] [address] [place] [address] cephALEXin 500 mg capsule oxyCODONE IR 5 mg immediate release tablet Additional Information Additional Health Information I Need to Know After I Leave the Hospital No additional instructions. The patient's risk for 30-day readmission is determined using the following contributing factors: Predictive Model Detai (more content not included)... Normal [facility] Comprehensive metabolic 2000 panelon 05-21-2024 Albumin [Mass/Vol] 4.0 g/dL Normal 3.9-4.9 [facility] Comment on above: Order Comment: Speci men Type: BLOOD SPECIMENOrdering Facility: [facility] Address: [address] [place] [address] Performed By: #### 2 4323-8 ####[facility] [id number] [place] [id number] [place] ALP [Catalytic activity/Vol] 223 U/L High 34-123 [facility] Comment on above: Order Comment: Speci men Type: BLOOD SPECIMENOrdering Facility: [facility] Address: [address] [place] [address] Performed By: #### 2 4323-8 ####[facility] [id number] [place] [address] [place] ALT [Catalytic activity/Vol] 113 U/L High 7-38 [facility] Comment on above: Order Comment: Speci men Type: BLOOD SPECIMENOrdering Facility: [facility] Address: [address] [place] [address] Performed By: #### 2 4323-8 ####[facility] [id number] [place] [address] [place] Anion gap [Moles/Vol] 17 mmol/L High 8-15 [facility] Comment on above: Order Comment: Speci men Type: BLOOD SPECIMENOrdering Facility: [facility] Address: [address] [place] [address] Performed By: #### 2 4323-8 ####[facility] [id number] [address] [place] AST [Catalytic activity/Vol] Normal [facility] Comment on above: Order Comment: Speci men Type: BLOOD SPECIMENOrdering Facility: [facility] Address: [address] [place] [place] [address] Result Comment: Unab le to assay due to interference from hemolysis. Suggest reorder as clinically indicated. Performed By: #### 2 4323-8 ####[facility] [id number] [address] [place] Bilirubin [Mass/Vol] 0.4 mg/dL Normal 0.2-1.3 [facility] Comment on above: Order Comment: Speci men Type: BLOOD SPECIMENOrdering Facility: [facility] Address: [address] [place] [address] Performed By: #### 2 4323-8 ####[facility] [id number] [place] [address] [place] Calcium [Mass/Vol] 9.8 mg/dL Normal 8.5-10.2 [facility] Comment on above: Order Comment: Speci men Type: BLOOD SPECIMENOrdering Facility: [facility] Address: [address] [place] [address] Performed By: #### 2 4323-8 ####[facility] [id number] [place] [address] [place] Chloride [Moles/Vol] 95 mmol/L Low 98-107 [facility] Comment on above: Order Comment: Speci men Type: BLOOD SPECIMENOrdering Facility: [facility] Address: [address] [place] [address] Performed By: #### 2 4323-8 ####[facility] [id number] [place] [address] [place] CO2 [Moles/Vol] 22 mmol/L Normal 22-30 [facility] Comment on above: Order Comment: Speci men Type: BLOOD SPECIMENOrdering Facility: [facility] Address: [address] [place] [address] Performed By: #### 2 4323-8 ####[facility] [id number] [place] [address] [place] Creatinine [Mass/Vol] 0.94 mg/dL Normal 0.58-0.96 [facility] Comment on above: Order Comment: Speci men Type: BLOOD SPECIMENOrdering Facility: [facility] Address: [address] [place] [address] Performed By: #### 2 4323-8 ####[facility] [id number] [place] [address] [place] [facility] [place] Creatinine and Glomerular filtration rate.predicted panel (S/P/Bld) 77 mL/min/1.73m??? Normal >=60 [facility] Comment on above: Order Comment: Speci men Type: BLOOD SPECIMENOrdering Facility: [facility] Address: [address] [place] [address] Result Comment: Ivdal mated Glomerular Filtration Rate (eGFR) is calculated [...] Performed By: #### 2 4323-8 ####[facility] [id number] [place] [address] [place] Glucose [Mass/Vol] 82 mg/dL Normal 74-99 [facility] Comment on above: Order Comment: David horton Type: BLOOD SPECIMENOrdering Facility: [facility] Address: [address] [place] [address] Result Comment: The [place] Diabetes Association (ADA) provides guidance for cutoff [...] Standards of Medical Care in Diabetes 2016, [place] [employer]. Diabetes Care. 2016.39(Suppl 1). Performed By: #### 2 4323-8 ####[facility] [id number] [place] [id number] [place] Potassium [Moles/Vol] 4.7 mmol/L Normal 3.7-5.1 [facility] Comment on above: Order Comment: David horton Type: BLOOD SPECIMENOrdering Facility: [facility] Address: [address] [place] [address] Performed By: #### 2 4323-8 ####[facility] [id number] [place] [address] [place] Protein [Mass/Vol] 7.0 g/dL Normal 6.3-8.0 [facility] Comment on above: Order Comment: David horton Type: BLOOD SPECIMENOrdering Facility: [facility] Address: [address] [place] [address] Performed By: #### 2 4323-8 ####[facility] [id number] [address] Sodium [Moles/Vol] 134 mmol/L Low 136-144 [facility] Comment on above: Order Comment: Speci men Type: BLOOD SPECIMENOrdering Facility: [facility] Address: [address] [place] [address] Performed By: #### 2 4323-8 ####[facility] [id number] [address] [place] Urea nitrogen [Mass/Vol] 22 mg/dL High 7-21 [facility] Comment on above: Order Comment: Speci men Type: BLOOD SPECIMENOrdering Facility: [facility] Address: [address] [place] [address] Performed By: #### 2 4323-8 ####[facility] [id number] [address] OF [facility] ALLIED HEALTHon 05-20-2024 ALLIED HEALTH HNO ID: [id number] Author: BONITA GROSS RDMS Service: ? Author Type: Sponge Diver Type: Allied Health Filed: 05/20/2024 14:34 Note [...] PATIENT PRESENTS WITH AN IMPLANTABLE OR ATTACHED THIN FILM TECHNICIAN: No RADIOLOGY DEPARTMENT: Ultrasound PERIPHERAL IV DATA: Not applicable SIGNED BY: Bonita Gross RDMS May 20, 2024 2:34 PM Normal [facility] CBC panel Auto (Bld)on 05-20 Erythrocyte distribution width (RBC) [Ratio] 13.8 % Normal 11.5-15.0 [facility] Comment on above: Order Comment: Speci men Type: BLOOD SPECIMENOrdering Facility: [facility] Address: [address] [place] [address] Performed By: #### 5 8410-2 ####[facility] [id number] [address] [place] Hematocrit (Bld) [Volume fraction] 49.3 % High 36.0-46.0 [facility] Comment on above: Order Comment: Speci men Type: BLOOD SPECIMENOrdering Facility: [facility] Address: [address] [place] [place] [address] Performed By: #### 5 8410-2 ####[facility] [id number] [address] OF [place] Hemoglobin (Bld) [Mass/Vol] 16.3 g/dL High 11.5-15.5 [facility] Comment on above: Order Comment: Speci men Type: BLOOD SPECIMENOrdering Facility: [facility] Address: [address] [place] [place] [address] Performed By: #### 5 8410-2 ####[facility] [id number] [address] MCH (RBC) [Entitic mass] 31.3 pg Normal 26.0-34.0 [facility] Comment on above: Order Comment: Speci men Type: BLOOD SPECIMENOrdering Facility: [facility] Address: [address] [place] [address] Performed By: #### 5 8410-2 ####[facility] [id number] [address] [place] MCHC (RBC) [Mass/Vol] 33.1 g/dL Normal 30.5-36.0 [facility] Comment on above: Order Comment: Speci men Type: BLOOD SPECIMENOrdering Facility: [facility] Address: [address] [place] [place] [address] Performed By: #### 5 8410-2 ####[facility] [id number] [address] [place] MCV (RBC) [Entitic vol] 94.8 fL Normal 80.0-100.0 [facility] Comment on above: Order Comment: Speci men Type: BLOOD SPECIMENOrdering Facility: [facility] Address: [address] [place] [address] Performed By: #### 5 8410-2 ####[facility] [id number] [address] OF [place] Nucleated RBC (Bld) [#/Vol] 10*3/uL Normal <0.01 [facility] Comment on above: Order Comment: Speci men Type: BLOOD SPECIMENOrdering Facility: [facility] Address: [address] [place] [address] Performed By: #### 5 8410-2 ####[facility] [id number] [address] OF [place] Platelet mean volume (Bld) [Entitic vol] 9.8 fL Normal 9.0-12.7 [facility] Comment on above: Order Comment: Speci men Type: BLOOD SPECIMENOrdering Facility: [facility] Address: [address] [place] [address] Performed By: #### 5 8410-2 ####[facility] [id number] [address] OF [place] Platelets (Bld) [#/Vol] 326 10*3/uL Normal 150-400 [facility] Comment on above: Order Comment: Speci men Type: BLOOD SPECIMENOrdering Facility: [facility] Address: [address] [place] [address] Performed By: #### 5 8410-2 ####[facility] [id number] [place] [address] [place] RBC (Bld) [#/Vol] 5.20 10*6/uL Normal 3.90-5.20 [facility] Comment on above: Order Comment: Speci men Type: BLOOD SPECIMENOrdering Facility: [facility] Address: [address] [place] [address] Performed By: #### 5 8410-2 ####[facility] [id number] [place] [address] [place] WBC (Bld) [#/Vol] 21.90 10*3/uL High 3.70-11.00 [facility] Comment on above: Order Comment: Speci men Type: BLOOD SPECIMENOrdering Facility: [facility] Address: [address] [place] [address] [place] [address] Performed By: #### 5 8410-2 ####[facility] [id number] [place] [id number] [facility] [place] CONSULT PROGon 05-20-2024 CONSULT PROG HNO ID: [id number] Author: TATI VANG RPh Service: Pharmacy Author [...] have any questions, please contact pharmacy at [phone]. Age: [age] year old Allergies: ALLERGIES Allergen Reactions Prozac [Fluoxetine * Other: See Comments suicidal ideations Ativan [Lorazepam] Vomiting Azithromycin Intolerance [place] Anaphylaxis [place] Anaphylaxis pickles Fish Anaphylaxis Levofloxacin In D5w [...] Date/Time Value 05/17/2024 1240 14.7 Tati Vang [facility] Normal [facility] Comprehensive metabolic 2000 panelon 05-20-2024 Albumin [Mass/Vol] 4.2 g/dL Normal 3.9-4.9 [facility] Comment on above: Order Comment: Speci men Type: BLOOD SPECIMENOrdering Facility: [facility] Address: [address] [place] [address] Performed By: #### 2 4323-8, 3040-3 ####[facility] [id number] [place] [address] [place] ALP [Catalytic activity/Vol] 228 U/L High 34-123 [facility] Comment on above: Order Comment: Speci men Type: BLOOD SPECIMENOrdering Facility: [facility] Address: [address] [place] [address] Performed By: #### 2 4323-8, 3040-3 ####[facility] [id number] [place] [address] [place] ALT [Catalytic activity/Vol] 50 U/L High 7-38 [facility] Comment on above: Order Comment: Speci men Type: BLOOD SPECIMENOrdering Facility: [facility] Address: [address] [place] [address] [place] [address] Performed By: #### 2 4323-8, 3040-3 ####[facility] [id number] [place] [address] [place] Anion gap [Moles/Vol] 14 mmol/L Normal 8-15 [facility] Comment on above: Order Comment: Speci men Type: BLOOD SPECIMENOrdering Facility: [facility] Address: [address] [place] [address] [place] [address] Performed By: #### 2 4323-8, 0-3 ####[facility] [id number] [place] [address] [place] AST [Catalytic activity/Vol] 34 U/L Normal 13-35 [facility] Comment on above: Order Comment: Speci men Type: BLOOD SPECIMENOrdering Facility: [facility] Address: [facility] [place] [address] Performed By: #### 2 4323-8, 3040-3 ####[facility] [id number] [place] [id number] [place] Bilirubin [Mass/Vol] 0.4 mg/dL Normal 0.2-1.3 [facility] Comment on above: Order Comment: Speci men Type: BLOOD SPECIMENOrdering Facility: [facility] Address: [address] [place] [address] [place] [address] Performed By: #### 2 4323-8, 3040-3 ####[facility] [id number] [place] [id number] [place] Calcium [Mass/Vol] 10.3 mg/dL High 8.5-10.2 [facility] Comment on above: Order Comment: Speci men Type: BLOOD SPECIMENOrdering Facility: [facility] Address: [address] [place] [address] Performed By: #### 2 4323-8, 3040-3 ####[facility]IA [id number] [place] [address] [place] Chloride [Moles/Vol] 94 mmol/L Low 98-107 [facility] Comment on above: Order Comment: Speci men Type: BLOOD SPECIMENOrdering Facility: [facility] Address: [address] [place] [address] Performed By: #### 2 4323-8, 0-3 ####[facility] [id number] [place] [address] [place] CO2 [Moles/Vol] 25 mmol/L Normal 22-30 [facility] Comment on above: Order Comment: Speci men Type: BLOOD SPECIMENOrdering Facility: [facility] Address: [address] [place] [place] [address] Performed By: #### 2 4323-8, 0-3 ####[facility] [id number] [place] [address] [place] Creatinine [Mass/Vol] 0.90 mg/dL Normal 0.58-0.96 [facility] Comment on above: Order Comment: Speci men Type: BLOOD SPECIMENOrdering Facility: [facility] Address: [address] [place] [address] Performed By: #### 2 4323-8, 0-3 ####[facility]IA [id number] [address] Creatinine and Glomerular filtration rate.predicted panel (S/P/Bld) 81 mL/min/1.73m??? Normal >=60 [facility] Comment on above: Order Comment: Speci men Type: BLOOD SPECIMENOrdering Facility: [facility] Address: [address] [place] [address] Result Comment: Vidal mated Glomerular Filtration Rate (eGFR) is calculated [...] actual GFR. Performed By: #### 2 4323-8, 0-3 ####[facility]ORYCLIA [id number] [place] [address] [place] Glucose [Mass/Vol] 98 mg/dL Normal 74-99 [facility] Comment on above: Order Comment: David horton Type: BLOOD SPECIMENOrdering Facility: [facility] Address: [address] [place] [id number] Result Comment: The [place] Diabetes Association (ADA) provides guidance for cutoff [...] Standards of Medical Care in Diabetes 2016, [place] [employer]. Diabetes Care. 2016.39(Suppl 1). Performed By: #### 2 4323-8, 3039-3 ####[facility]IA [id number] [place] [id number] [place] Potassium [Moles/Vol] 4.4 mmol/L Normal 3.7-5.1 [facility] Comment on above: Order Comment: David horton Type: BLOOD SPECIMENOrdering Facility: [facility] Address: [address] [place] [address] Performed By: #### 2 4323-8, 0-3 ####[facility]ORYCLIA [id number] [place] [address] [place] Protein [Mass/Vol] 7.4 g/dL Normal 6.3-8.0 [facility] Comment on above: Order Comment: David horton Type: BLOOD SPECIMENOrdering Facility: [facility] Address: [address] [place] [address] Performed By: #### 2 4323-8, 3040-3 ####[facility]ORYCLIA [id number] [place] [id number] [place] Sodium [Moles/Vol] 133 mmol/L Low 136-144 [facility] Comment on above: Order Comment: Speci men Type: BLOOD SPECIMENOrdering Facility: [facility] Address: [address] [place] [address] Performed By: #### 2 4323-8, 3040-3 ####[facility]ORYCLIA [id number] [place] [id number] [place] Urea nitrogen [Mass/Vol] 18 mg/dL Normal 7-21 [facility] Comment on above: Order Comment: Speci men Type: BLOOD SPECIMENOrdering Facility: [facility] Address: [address] [place] [address] Performed By: #### 2 4323-8, 3040-3 ####[facility]ORYCLIA [id number] [place] [address] [place] Lipase SerPl-cCncon 05-21-19 25 Lipase [Catalytic activity/Vol] 22 U/L Normal 16-61 [facility] Comment on above: Order Comment: Speci men Type: BLOOD SPECIMENOrdering Facility: [facility] Address: [address] [place] [place] [address] Performed By: #### 2 4323-8, 3040-3 ####[facility]ORYCLIA [id number] [place] [address] [place] US ABD RIGHT UPPER QUADRANTo n 05-20-2024 US ABD RIGHT UPPER QUADRANT * * *Final Report* * * DATE OF EXAM: May 20 2024 2:33PM MDU 1032 - US ABD RIGHT UPPER QUADRANT [...] prominence. This is sometimes seen after cholecystectomy. Manager Of Clinical: PSCB Transcribe Date/Time: May 20 2024 2:35P Dictated by : KASIE GREGORY MD This examination was interpreted and the report reviewed and electronically signed by: KASIE GREGORY MD on May 20 2024 2:36PM EST [id number] Normal [facility] ALLIED HEALTHon 05-19-2024 ALLIED [facility] HNO ID: [id number] Author: ABELARDO LEES CT Service: Radiology Author [...] PATIENT PRESENTS WITH AN IMPLANTABLE OR ATTACHED THIN FILM TECHNICIAN: No RADIOLOGY DEPARTMENT: General X-ray: Exam(s) Completed: Chest X-Ray PERIPHERAL IV DATA: Not applicable SIGNED BY: MIRACLE Gomez May 19, 2024 9:56 AM Normal [facility] CBC panel Auto (Bld)on 05-19 Erythrocyte distribution width (RBC) [Ratio] 14.2 % Normal 11.5-15.0 [facility] Comment on above: Order Comment: Speci men Type: BLOOD SPECIMEN [facility] Address: [address] [place] [address] Performed By: #### 5 8410-2 #### [facility] CLIA [id number] [address] OF [facility] Hematocrit (Bld) [Volume fraction] 52.0 % High 36.0-46.0 [facility] Comment on above: Order Comment: Speci men Type: BLOOD SPECIMEN [facility] Address: [address] [place] [address] Performed By: #### 5 8410-2 #### [facility] CLIA [id number] [address] [place] Hemoglobin (Bld) [Mass/Vol] 16.6 g/dL High 11.5-15.5 [facility] Comment on above: Order Comment: Speci men Type: BLOOD SPECIMEN Ordering Facility: [facility] Address: [address] [place] [address] Performed By: #### 5 8410-2 #### [facility] CLIA [id number] [address] MCH (RBC) [Entitic mass] 31.3 pg Normal 26.0-34.0 [facility] Comment on above: Order Comment: Speci men Type: BLOOD SPECIMEN Ordering Facility: [facility] Address: [address] [place] [address] Performed By: #### 5 8410-2 #### [facility] CLIA [id number] [address] [place] MCHC (RBC) [Mass/Vol] 31.9 g/dL Normal 30.5-36.0 [facility] Comment on above: Order Comment: Speci men Type: BLOOD SPECIMEN Ordering Facility: [facility] Address: [address] [place] [address] Performed By: #### 5 8410-2 #### [facility] CLIA [id number] [address] MCV (RBC) [Entitic vol] 97.9 fL Normal 80.0-100.0 [facility] Comment on above: Order Comment: Speci men Type: BLOOD SPECIMEN Ordering Facility: [facility] Address: [address] [place] [address] Performed By: #### 5 8410-2 #### [facility] CLIA [id number] [address] [place] Nucleated RBC (Bld) [#/Vol] 10*3/uL Normal <0.01 [facility] Comment on above: Order Comment: Speci men Type: BLOOD SPECIMEN Ordering Facility: [facility] Address: [address] [place] [address] Performed By: #### 5 8410-2 #### [facility] CLIA [id number] [address] [place] Platelet mean volume (Bld) [Entitic vol] 10.3 fL Normal 9.0-12.7 [facility] Comment on above: Order Comment: Speci men Type: BLOOD SPECIMEN Ordering Facility: [facility] Address: [address] [place] [address] Performed By: #### 5 8410-2 #### [facility] CLIA [id number] [address] [place] Platelets (Bld) [#/Vol] 346 10*3/uL Normal 150-400 [facility] Comment on above: Order Comment: Speci men Type: BLOOD SPECIMEN Ordering Facility: [facility] Address: [address] [place] [address] Performed By: #### 5 8410-2 #### [facility] CLIA [id number] [address] [place] RBC (Bld) [#/Vol] 5.31 10*6/uL High 3.90-5.20 [facility] Comment on above: Order Comment: Speci men Type: BLOOD SPECIMEN Ordering Facility: [facility] Address: [address] [place] [address] Performed By: #### 5 8410-2 #### [facility] CLIA [id number] [address] [place] WBC (Bld) [#/Vol] 10.65 10*3/uL Normal 3.70-11.00 [facility] Comment on above: Order Comment: Speci men Type: BLOOD SPECIMEN Ordering Facility: [facility] Address: [address] [place] [address] Performed By: #### 5 8410-2 #### [facility] CLIA [id number] [address] [place] [address] [facility] CONSULTon 05-19-2024 CONSULT HNO ID: [id number] Author: LUIS MIGUEL VUONG MD Service: Cardiovascular [...] PERMANENT TRANSVENOUS PACEMAKER INSERTION 2006 ICD implant, [facility] ANESTHESIA TUBAL LIGATION/TRANSECTION APPENDECTOMY 05/05/2014 , [...] 40 mg (more content not included)... Normal [facility] Comprehensive metabolic 2000 panelon 05-19-2024 Albumin [Mass/Vol] 4.5 g/dL Normal 3.9-4.9 [facility] Comment on above: Order Comment: Speci men Type: BLOOD SPECIMEN Ordering Facility: [facility] Address: [address] [place] [address] Performed By: #### 5 8410-2 #### [facility] CLIA [id number] 1000 [place] [address] [place] ALP [Catalytic activity/Vol] 277 U/L High 34-123 [facility] Comment on above: Order Comment: Speci men Type: BLOOD SPECIMEN Ordering Facility: [facility] Address: [address] [place] [address] Performed By: #### 5 8410-2 #### [facility] CLIA [id number] 1000 [place] [address] [place] ALT [Catalytic activity/Vol] 63 U/L High 7-38 [facility] Comment on above: Order Comment: Speci men Type: BLOOD SPECIMEN Ordering Facility: [facility] Address: [address] [place] [address] Performed By: #### 5 8410-2 #### [facility] CLIA [id number] [address] [place] [address] [place] Anion gap [Moles/Vol] 11 mmol/L Normal 8-15 [facility] Comment on above: Order Comment: Speci men Type: BLOOD SPECIMEN Ordering Facility: [facility] Address: [address] [place] [address] Performed By: #### 5 8410-2 #### [facility] CLIA [id number] 1000 [place] [address] [place] AST [Catalytic activity/Vol] 59 U/L High 13-35 [facility] Comment on above: Order Comment: Speci men Type: BLOOD SPECIMEN Ordering Facility: [facility] Address: [address] [place] [address] Performed By: #### 5 8410-2 #### [facility] CLIA [id number] [address] [place] Bilirubin [Mass/Vol] 0.5 mg/dL Normal 0.2-1.3 [facility] Comment on above: Order Comment: Speci men Type: BLOOD SPECIMEN Ordering Facility: [facility] Address: [address] [place] [address] Performed By: #### 5 8410-2 #### [facility] CLIA [id number] [address] [place] Calcium [Mass/Vol] 10.1 mg/dL Normal 8.5-10.2 [facility] Comment on above: Order Comment: Speci men Type: BLOOD SPECIMEN Ordering Facility: [facility] Address: [address] [place] [address] Performed By: #### 5 8410-2 #### [facility] CLIA [id number] 1000 [place] [address] [place] Chloride [Moles/Vol] 96 mmol/L Low 98-107 [facility] Comment on above: Order Comment: Speci men Type: BLOOD SPECIMEN Ordering Facility: [facility] Address: [address] [place] [address] Performed By: #### 5 8410-2 #### [facility] CLIA [id number] [address] CO2 [Moles/Vol] 30 mmol/L Normal 22-30 [facility] Comment on above: Order Comment: David horton Type: BLOOD SPECIMEN Ordering Facility: [facility] Address: [address] [place] [address] Performed By: #### 5 8410-2 #### [facility] CLIA [id number] [address] OF [facility] Creatinine [Mass/Vol] 1.04 mg/dL High 0.58-0.96 [facility] Comment on above: Order Comment: David horton Type: BLOOD SPECIMEN Ordering Facility: [facility] Address: [address] [place] [address] Performed By: #### 5 8410-2 #### [facility] CLIA [id number] [address] Creatinine and Glomerular filtration rate.predicted panel (S/P/Bld) 68 mL/min/1.73m??? Normal >=60 [facility] Comment on above: Order Comment: David horton Type: BLOOD SPECIMEN Ordering Facility: [facility] Address: [address] [place] [address] Result Comment: Vidal mated Glomerular Filtration Rate (eGFR) is calculated [...] GFR. Performed By: #### 5 8410-2 #### [facility] CLIA [id number] [address] Glucose [Mass/Vol] 79 mg/dL Normal 74-99 [facility] Comment on above: Order Comment: David horton Type: BLOOD SPECIMEN Ordering Facility: [facility] Address: [address] [place] [address] Result Comment: The [place] Diabetes [employer] (ADA) provides guidance for cutoff [...] Standards of Medical Care in Diabetes 2016, [place] [employer]. Diabetes Care. 2016.39(Suppl 1). Performed By: #### 5 8410-2 #### [facility] CLIA [id number] [address] [place] [address] [place] Potassium [Moles/Vol] 4.1 mmol/L Normal 3.7-5.1 [facility] Comment on above: Order Comment: David horton Type: BLOOD SPECIMEN Ordering Facility: [facility] Address: [address] [place] [address] Performed By: #### 5 8410-2 #### [facility] CLIA [id number] 1000 [place] [address] [place] Protein [Mass/Vol] 8.0 g/dL Normal 6.3-8.0 [facility] Comment on above: Order Comment: David horton Type: BLOOD SPECIMEN Ordering Facility: [facility] Address: [address] [place] [address] Performed By: #### 5 8410-2 #### [facility] CLIA [id number] [address] [place] [address] [place] Sodium [Moles/Vol] 137 mmol/L Normal 136-144 [facility] Comment on above: Order Comment: David horton Type: BLOOD SPECIMEN Ordering Facility: [facility] Address: [address] [place] [address] Performed By: #### 5 8410-2 #### [facility] CLIA [id number] [address] [place] [address] [place] Urea nitrogen [Mass/Vol] 20 mg/dL Normal 7-21 [facility] Comment on above: Order Comment: David horton Type: BLOOD SPECIMEN Ordering Facility: [facility] Address: [address] [place] [address] Performed By: #### 5 8410-2 #### [facility] CLIA [id number] [address] [place] [address] [facility] NURSING PROGon 05-19-2024 NURSING PROG HNO ID: [id number] Author: CYNTHIA CADE, RN Service: ? Author Type: Registered Nurse Type: Nursing Progress Note Filed: 05/19/2024 05:09 Note Text: Other: 0508 refused new IV start ,even though her IV sluggish. Patient educated about keeping old IV in . Doesn't want it removed at this time. Normal [facility] XR CHEST 2V FRONTAL/LATon XR CHEST [...] tissues: Unremarkable. IMPRESSION: No acute radiographic abnormality. Manager Of Clinical[facility] Transcribe Date/Time: May 19 2024 10:00A Dictated by : PATRICIA MCCARTNEY MD This examination was interpreted and the report reviewed and electronically signed by: PATRICIA MCCARTNEY MD on May 19 2024 10:03AM EST [id number] Normal [facility] CBC panel Auto (Bld)on 05-18 Erythrocyte distribution width (RBC) [Ratio] 14.2 % Normal 11.5-15.0 [facility] Comment on above: Order Comment: Speci men Type: BLOOD SPECIMENOrdering Facility: [facility] Address: [facility] [place] [address] Performed By: #### 5 8410-2 ####[facility] [id number] [address] Hematocrit (Bld) [Volume fraction] 45.5 % Normal 36.0-46.0 [facility] Comment on above: Order Comment: Speci men Type: BLOOD SPECIMENOrdering Facility: [facility] Address: [address] [place] [address] Performed By: #### 5 8410-2 ####[facility] [id number] [address] [place] Hemoglobin (Bld) [Mass/Vol] 15.3 g/dL Normal 11.5-15.5 [facility] Comment on above: Order Comment: Speci men Type: BLOOD SPECIMENOrdering Facility: [facility] Address: [address] [place] [address] Performed By: #### 5 8410-2 ####[facility] [id number] [address] MCH (RBC) [Entitic mass] 32.0 pg Normal 26.0-34.0 [facility] Comment on above: Order Comment: Speci men Type: BLOOD SPECIMENOrdering Facility: [facility] Address: [address] [place] [address] Performed By: #### 5 8410-2 ####[facility] [id number] [address] MCHC (RBC) [Mass/Vol] 33.6 g/dL Normal 30.5-36.0 [facility] Comment on above: Order Comment: Speci men Type: BLOOD SPECIMENOrdering Facility: [facility] Address: [address] [place] [address] Performed By: #### 5 8410-2 ####[facility] [id number] [address] MCV (RBC) [Entitic vol] 95.2 fL Normal 80.0-100.0 [facility] Comment on above: Order Comment: Speci men Type: BLOOD SPECIMENOrdering Facility: [facility] Address: [address] [place] [address] Performed By: #### 5 8410-2 ####[facility] [id number] [place] [address] [place] Nucleated RBC (Bld) [#/Vol] 10*3/uL Normal <0.01 [facility] Comment on above: Order Comment: Speci men Type: BLOOD SPECIMENOrdering Facility: [facility] Address: [address] [place] [address] Performed By: #### 5 8410-2 ####[facility] [id number] [place] [address] [place] Platelet mean volume (Bld) [Entitic vol] 10.7 fL Normal 9.0-12.7 [facility] Comment on above: Order Comment: Speci men Type: BLOOD SPECIMENOrdering Facility: [facility] Address: [address] [place] [address] Performed By: #### 5 8410-2 ####[facility] [id number] [place] [address] [place] Platelets (Bld) [#/Vol] 293 10*3/uL Normal 150-400 [facility] Comment on above: Order Comment: Speci men Type: BLOOD SPECIMENOrdering Facility: [facility] Address: [address] [place] [address] Performed By: #### 5 8410-2 ####[facility] [id number] [place] [address] [place] RBC (Bld) [#/Vol] 4.78 10*6/uL Normal 3.90-5.20 [facility] Comment on above: Order Comment: Speci men Type: BLOOD SPECIMENOrdering Facility: [facility] Address: [address] [place] [address] Performed By: #### 5 8410-2 ####[facility] [id number] [place] [address] [place] WBC (Bld) [#/Vol] 9.76 10*3/uL Normal 3.70-11.00 [facility] Comment on above: Order Comment: Speci men Type: BLOOD SPECIMENOrdering Facility: [facility] Address: [address] [place] [address] Performed By: #### 5 8410-2 ####[facility] [id number] [place] [address] [place] Comprehensive metabolic 2000 panelon 05-18-2024 Albumin [Mass/Vol] 3.9 g/dL Normal 3.9-4.9 [facility] Comment on above: Order Comment: Speci men Type: BLOOD SPECIMENOrdering Facility: [facility] Address: [address] [place] [address] Performed By: #### 2 4323-8 ####[facility] [id number] [place] [address] [place] ALP [Catalytic activity/Vol] 249 U/L High 34-123 [facility] Comment on above: Order Comment: Speci men Type: BLOOD SPECIMENOrdering Facility: [facility] Address: [address] [place] [place] [address] Performed By: #### 2 4323-8 ####[facility] [id number] [place] [address] [place] ALT [Catalytic activity/Vol] 60 U/L High 7-38 [facility] Comment on above: Order Comment: Speci men Type: BLOOD SPECIMENOrdering Facility: [facility] Address: [address] [place] [address] Performed By: #### 2 4323-8 ####[facility] [id number] [place] [address] [place] Anion gap [Moles/Vol] 12 mmol/L Normal 8-15 [facility] Comment on above: Order Comment: Speci men Type: BLOOD SPECIMENOrdering Facility: [facility] Address: [address] [place] [address] Performed By: #### 2 4323-8 ####[facility] [id number] [place] [address] [place] AST [Catalytic activity/Vol] 41 U/L High 13-35 [facility] Comment on above: Order Comment: Speci men Type: BLOOD SPECIMENOrdering Facility: [facility] Address: [address] [place] [address] Performed By: #### 2 4323-8 ####[facility] [id number] [place] [address] [place] Bilirubin [Mass/Vol] 0.5 mg/dL Normal 0.2-1.3 [facility] Comment on above: Order Comment: Speci men Type: BLOOD SPECIMENOrdering Facility: [facility] Address: [address] [place] [address] Performed By: #### 2 4323-8 ####[facility] [id number] [place] [address] [place] Calcium [Mass/Vol] 9.4 mg/dL Normal 8.5-10.2 [facility] Comment on above: Order Comment: Speci men Type: BLOOD SPECIMENOrdering Facility: [facility] Address: [address] [place] [place] [address] Performed By: #### 2 4323-8 ####[facility] [id number] [place] [address] [place] Chloride [Moles/Vol] 100 mmol/L Normal 98-107 [facility] Comment on above: Order Comment: Speci men Type: BLOOD SPECIMENOrdering Facility: [facility] Address: [address] [place] [address] Performed By: #### 2 4323-8 ####[facility] [id number] [place] [address] [place] CO2 [Moles/Vol] 22 mmol/L Normal 22-30 [facility] Comment on above: Order Comment: Speci men Type: BLOOD SPECIMENOrdering Facility: [facility] Address: [address] [place] [address] Performed By: #### 2 4323-8 ####[facility] [id number] [place] [address] [place] Creatinine [Mass/Vol] 1.00 mg/dL High 0.58-0.96 [facility] Comment on above: Order Comment: Speci men Type: BLOOD SPECIMENOrdering Facility: [facility] Address: [address] [place] [address] Performed By: #### 2 4323-8 ####[facility] [id number] [address] Creatinine and Glomerular filtration rate.predicted panel (S/P/Bld) 71 mL/min/1.73m??? Normal >=60 [facility] Comment on above: Order Comment: David horton Type: BLOOD SPECIMENOrdering Facility: [facility] Address: [address] [place] [address] Result Comment: Vidal mated Glomerular Filtration Rate (eGFR) is calculated [...] Performed By: #### 2 4323-8 ####[facility] [id number] [address] [place] Glucose [Mass/Vol] 87 mg/dL Normal 74-99 [facility] Comment on above: Order Comment: David horton Type: BLOOD SPECIMENOrdering Facility: [facility] Address: [address] [place] [address] Result Comment: The [place] Diabetes [employer] (ADA) provides guidance for cutoff [...] Standards of Medical Care in Diabetes 2016, [place] [employer]. Diabetes Care. 2016.39(Suppl 1). Performed By: #### 2 4323-8 ####[facility] [id number] [address] [place] Potassium [Moles/Vol] 4.7 mmol/L Normal 3.7-5.1 [facility] Comment on above: Order Comment: Speci men Type: BLOOD SPECIMENOrdering Facility: [facility] Address: [address] [place] [address] Performed By: #### 2 4323-8 ####[facility] [id number] [place] [address] [place] Protein [Mass/Vol] 6.9 g/dL Normal 6.3-8.0 [facility] Comment on above: Order Comment: Speci men Type: BLOOD SPECIMENOrdering Facility: [facility] Address: [address] [place] [address] Performed By: #### 2 4323-8 ####[facility] [id number] [address] [place] Sodium [Moles/Vol] 134 mmol/L Low 136-144 [facility] Comment on above: Order Comment: Speci men Type: BLOOD SPECIMENOrdering Facility: [facility] Address: [address] [place] [address] Performed By: #### 2 4323-8 ####[facility] [id number] [address] [place] Urea nitrogen [Mass/Vol] 17 mg/dL Normal 7-21 [facility] Comment on above: Order Comment: Speci men Type: BLOOD SPECIMENOrdering Facility: [facility] Address: [address] [place] [address] Performed By: #### 2 4323-8 ####[facility] [id number] [place] [address] [place] CBC panel Auto (Bld)on 05-17 Erythrocyte distribution width (RBC) [Ratio] 14.3 % Normal 11.5-15.0 [facility] Comment on above: Order Comment: Speci men Type: BLOOD SPECIMENOrdering Facility: [facility] Address: [address] [place] [address] Performed By: #### 5 8410-2 ####[facility] [id number] [address] Hematocrit (Bld) [Volume fraction] 42.1 % Normal 36.0-46.0 [facility] Comment on above: Order Comment: Speci men Type: BLOOD SPECIMENOrdering Facility: [facility] Address: [address] [place] [address] Performed By: #### 5 8410-2 ####[facility] [id number] [address] Hemoglobin (Bld) [Mass/Vol] 13.7 g/dL Normal 11.5-15.5 [facility] Comment on above: Order Comment: Speci men Type: BLOOD SPECIMENOrdering Facility: [facility] Address: [address] [place] [address] Performed By: #### 5 8410-2 ####[facility] [id number] [address] MCH (RBC) [Entitic mass] 31.7 pg Normal 26.0-34.0 [facility] Comment on above: Order Comment: Speci men Type: BLOOD SPECIMENOrdering Facility: [facility] Address: [address] [place] [address] Performed By: #### 5 8410-2 ####[facility] [id number] [address] MCHC (RBC) [Mass/Vol] 32.5 g/dL Normal 30.5-36.0 [facility] Comment on above: Order Comment: Speci men Type: BLOOD SPECIMENOrdering Facility: [facility] Address: [address] [place] [address] Performed By: #### 5 8410-2 ####[facility] [id number] [address] MCV (RBC) [Entitic vol] 97.5 fL Normal 80.0-100.0 [facility] Comment on above: Order Comment: Speci men Type: BLOOD SPECIMENOrdering Facility: [facility] Address: [address] [place] [address] Performed By: #### 5 8410-2 ####[facility] [id number] [place] [address] [place] Nucleated RBC (Bld) [#/Vol] 10*3/uL Normal <0.01 [facility] Comment on above: Order Comment: Speci men Type: BLOOD SPECIMENOrdering Facility: [facility] Address: [address] [place] [place] [address] Performed By: #### 5 8410-2 ####[facility] [id number] [place] [address] [place] Platelet mean volume (Bld) [Entitic vol] 10.5 fL Normal 9.0-12.7 [facility] Comment on above: Order Comment: Speci men Type: BLOOD SPECIMENOrdering Facility: [facility] Address: [address] [place] [place] [address] Performed By: #### 5 8410-2 ####[facility] [id number] [address] [place] Platelets (Bld) [#/Vol] 265 10*3/uL Normal 150-400 [facility] Comment on above: Order Comment: Speci men Type: BLOOD SPECIMENOrdering Facility: [facility] Address: [address] [place] [address] Performed By: #### 5 8410-2 ####[facility] [id number] [place] [address] [place] RBC (Bld) [#/Vol] 4.32 10*6/uL Normal 3.90-5.20 [facility] Comment on above: Order Comment: Speci men Type: BLOOD SPECIMENOrdering Facility: [facility] Address: [address] [place] [place] [address] Performed By: #### 5 8410-2 ####[facility] [id number] [address] [place] WBC (Bld) [#/Vol] 9.33 10*3/uL Normal 3.70-11.00 [facility] Comment on above: Order Comment: Speci men Type: BLOOD SPECIMENOrdering Facility: [facility] Address: [address] [place] [id number] Performed By: #### 5 8410-2 ####[facility]ATORYCLIA [id number] [place] [address] [place] CONSULTon 05-17-2024 CONSULT HNO ID: [id number] Author: JOSIE OVALLES APRN.CNP Service: Wound/Ostomy Author Type: Nurse Practitioner Type: [...] (s/p ICD in 2006), pericarditis, GERD, PE (2017), endometrial/ovarian epithelial CA, and breast CA s/p [...] PERMANENT TRANSVENOUS PACEMAKER INSERTION 2006 ICD implant, [facility] ANESTHESIA TUBAL LIGATION/TRANSECTION APPENDECTOMY 05/05/2014 , [...] 20 mL INTRAVENOUS (more content not included)... [facility] CONSULT PROGon 05-17-2024 CONSULT PROG HNO ID: [id number] Author: SALLIE WILKERSON RPh Service: Pharmacy Author [...] have any questions, please contact pharmacy at [phone]. Age: [age] year old Allergies: ALLERGIES Allergen Reactions Prozac [Fluoxetine * Other: See Comments suicidal ideations Ativan [Lorazepam] Vomiting Azithromycin Intolerance [place] Anaphylaxis [place] Anaphylaxis pickles Fish Anaphylaxis Levofloxacin In D5w [...] Date/Time Value 05/17/2024 1240 14.7 Sallie Wilkerson [facility] Normal [facility] Comprehensive metabolic 2000 panelon 05-17-2024 Albumin [Mass/Vol] 4.0 g/dL Normal 3.9-4.9 [facility] Comment on above: Order Comment: Speci men Type: BLOOD SPECIMENOrdering Facility: [facility] Address: [address] [place] [address] Performed By: #### 2 4323-8 ####[facility]ORATORYCLIA [id number] [place] [address] [place] ALP [Catalytic activity/Vol] 249 U/L High 34-123 [facility] Comment on above: Order Comment: Speci men Type: BLOOD SPECIMENOrdering Facility: [facility] Address: [address] [place] [address] Performed By: #### 2 4323-8 ####[facility] LABORATORYCLIA [id number] [place] [address] [place] ALT [Catalytic activity/Vol] 58 U/L High 7-38 [facility] Comment on above: Order Comment: Speci men Type: BLOOD SPECIMENOrdering Facility: [facility] Address: [address] [place] [address] Performed By: #### 2 4323-8 ####[facility] LABORATORYCLIA [id number] [place] [address] [place] Anion gap [Moles/Vol] 10 mmol/L Normal 8-15 [facility] Comment on above: Order Comment: Speci men Type: BLOOD SPECIMENOrdering Facility: [facility] Address: [address] [place] [address] Performed By: #### 2 4323-8 ####[facility]ORATORYCLIA [id number] [address] [place] AST [Catalytic activity/Vol] 47 U/L High 13-35 [facility] Comment on above: Order Comment: Speci men Type: BLOOD SPECIMENOrdering Facility: [facility] Address: [address] [place] [address] Performed By: #### 2 4323-8 ####[facility]ORATORYCLIA [id number] [place] [address] [place] Bilirubin [Mass/Vol] 0.6 mg/dL Normal 0.2-1.3 [facility] Comment on above: Order Comment: Speci men Type: BLOOD SPECIMENOrdering Facility: [facility] Address: [address] [place] [address] Performed By: #### 2 4323-8 ####[facility]ORATORYCLIA [id number] [place] [address] [place] Calcium [Mass/Vol] 9.1 mg/dL Normal 8.5-10.2 [facility] Comment on above: Order Comment: Speci men Type: BLOOD SPECIMENOrdering Facility: [facility] Address: [address] [place] [address] Performed By: #### 2 4323-8 ####[facility]ORATORYCLIA [id number] [place] [address] [place] Chloride [Moles/Vol] 99 mmol/L Normal 98-107 [facility] Comment on above: Order Comment: Speci men Type: BLOOD SPECIMENOrdering Facility: [facility] Address: [address] [place] [address] Performed By: #### 2 4323-8 ####[facility]ORATORYCLIA [id number] [place] [address] [place] CO2 [Moles/Vol] 25 mmol/L Normal 22-30 [facility] Comment on above: Order Comment: Speci men Type: BLOOD SPECIMENOrdering Facility: [facility] Address: [address] [place] [address] Performed By: #### 2 4323-8 ####[facility]ORATORYCLIA [id number] [place] [address] [place] Creatinine [Mass/Vol] 0.87 mg/dL Normal 0.58-0.96 [facility] Comment on above: Order Comment: Speci men Type: BLOOD SPECIMENOrdering Facility: [facility] Address: [address] [place] [address] Performed By: #### 2 4323-8 ####[facility]ORATORYCLIA [id number] [address] [place] Creatinine and Glomerular filtration rate.predicted panel (S/P/Bld) 84 mL/min/1.73m??? Normal >=60 [facility] Comment on above: Order Comment: Speci men Type: BLOOD SPECIMENOrdering Facility: [facility] Address: [address] [place] [address] Result Comment: Vidal mated Glomerular Filtration Rate (eGFR) is calculated [...] Performed By: #### 2 4323-8 ####[facility]ORATORYCLIA [id number] [place] [address] [place] Glucose [Mass/Vol] 97 mg/dL Normal 74-99 [facility] Comment on above: Order Comment: David horton Type: BLOOD SPECIMENOrdering Facility: [facility] Address: [address] [place] [address] Result Comment: The [place] Diabetes Association (ADA) provides guidance for cutoff [...] Standards of Medical Care in Diabetes 2016, [place] [employer]. Diabetes Care. 2016.39(Suppl 1). Performed By: #### 2 4323-8 ####[facility] LABORATORYCLIA [id number] [place] [id number] [place] Potassium [Moles/Vol] 4.6 mmol/L Normal 3.7-5.1 [facility] Comment on above: Order Comment: David horton Type: BLOOD SPECIMENOrdering Facility: [facility] Address: [address] [place] [address] Performed By: #### 2 4323-8 ####[facility]ORATORYCLIA [id number] [address] Protein [Mass/Vol] 6.7 g/dL Normal 6.3-8.0 [facility] Comment on above: Order Comment: Speci men Type: BLOOD SPECIMENOrdering Facility: [facility] Address: [address] [place] [address] Performed By: #### 2 4323-8 ####[facility]ORATORYCLIA [id number] [address] [place] [facility] Sodium [Moles/Vol] 134 mmol/L Low 136-144 [facility] Comment on above: Order Comment: Speci men Type: BLOOD SPECIMENOrdering Facility: [facility] Address: [address] [place] [address] Performed By: #### 2 4323-8 ####[facility]ORATORYCLIA [id number] [address] [place] [facility] Urea nitrogen [Mass/Vol] 12 mg/dL Normal 7-21 [facility] Comment on above: Order Comment: Speci men Type: BLOOD SPECIMENOrdering Facility: [facility] Address: [address] [place] [address] Performed By: #### 2 4323-8 ####[facility]ORATORYCLIA [id number] [address] Vancomycin [place] SerPl-mCncon 05-17-2024 Vancomycin random [Mass/Vol] 14.7 ug/mL Normal 10.0-20.0 [facility] Comment on above: Order Comment: Speci kris Type: BLOOD SPECIMEN [facility] Address: [address] [place] [address] Result Comment: Refe rence ranges and high/low indicator flags are provided as general guidelines only. The treating physician must determine appropriate target levels/dosing based on the specific clinical situation. Performed By: #### 5 8410-2 #### [facility] CLIA [id number] [address] [place] CBC panel Auto (Bld)on 05-16 Erythrocyte distribution width (RBC) [Ratio] 14.5 % Normal 11.5-15.0 [facility] Comment on above: Order Comment: Speci men Type: BLOOD SPECIMENOrdering Facility: [facility] Address: [address] [place] [address] Performed By: #### 5 8410-2 ####[facility]ORATORYCLIA [id number] [address] Hematocrit (Bld) [Volume fraction] 37.8 % Normal 36.0-46.0 [facility] Comment on above: Order Comment: Speci men Type: BLOOD SPECIMENOrdering Facility: [facility] Address: [address] [place] [address] Performed By: #### 5 8410-2 ####[facility]ORATORYCLIA [id number] [address] Hemoglobin (Bld) [Mass/Vol] 12.6 g/dL Normal 11.5-15.5 [facility] Comment on above: Order Comment: Speci men Type: BLOOD SPECIMENOrdering Facility: [facility] Address: [address] [place] [address] Performed By: #### 5 8410-2 ####[facility]ORATORYCLIA [id number] [address] MCH (RBC) [Entitic mass] 32.2 pg Normal 26.0-34.0 [facility] Comment on above: Order Comment: Speci men Type: BLOOD SPECIMENOrdering Facility: [facility] Address: [address] [place] [address] Performed By: #### 5 8410-2 ####[facility]ORATORYCLIA [id number] [address] MCHC (RBC) [Mass/Vol] 33.3 g/dL Normal 30.5-36.0 [facility] Comment on above: Order Comment: Speci men Type: BLOOD SPECIMENOrdering Facility: [facility] Address: [address] [place] [place] [address] Performed By: #### 5 8410-2 ####[facility]ORATORYCLIA [id number] [address] MCV (RBC) [Entitic vol] 96.7 fL Normal 80.0-100.0 M [facility] Comment on above: Order Comment: Speci men Type: BLOOD SPECIMENOrdering Facility: [facility] Address: [address] [place] [address] Performed By: #### 5 8410-2 ####[facility] LABORATORYCLIA [id number] [place] [address] [place] Nucleated RBC (Bld) [#/Vol] 10*3/uL Normal <0.01 [facility] Comment on above: Order Comment: Speci men Type: BLOOD SPECIMENOrdering Facility: [facility] Address: [address] [place] [address] Performed By: #### 5 8410-2 ####[facility]ORATORYCLIA [id number] [address] [place] Platelet mean volume (Bld) [Entitic vol] 10.5 fL Normal 9.0-12.7 [facility] Comment on above: Order Comment: Speci men Type: BLOOD SPECIMENOrdering Facility: [facility] Address: [address] [place] [address] Performed By: #### 5 8410-2 ####[facility]ORATORYCLIA [id number] [place] [address] [place] Platelets (Bld) [#/Vol] 234 10*3/uL Normal 150-400 [facility] Comment on above: Order Comment: Speci men Type: BLOOD SPECIMENOrdering Facility: [facility] Address: [address] [place] [address] Performed By: #### 5 8410-2 ####[facility]ORATORYCLIA [id number] [place] [address] [place] RBC (Bld) [#/Vol] 3.91 10*6/uL Normal 3.90-5.20 [facility] Comment on above: Order Comment: Speci men Type: BLOOD SPECIMENOrdering Facility: [facility] Address: [address] [place] [address] Performed By: #### 5 8410-2 ####[facility]ORATORYCLIA [id number] [place] [address] [place] WBC (Bld) [#/Vol] 6.77 10*3/uL Normal 3.70-11.00 [facility] Comment on above: Order Comment: Speci men Type: BLOOD SPECIMENOrdering Facility: [facility] Address: [address] [place] [address] Performed By: #### 5 8410-2 ####[facility] LABORATORYCLIA [id number] [place] [address] [facility] CONSULT PROGon 05-16-2024 CONSULT PROG HNO ID: [id number] Author: LAYCIA LEES RPh Service: Pharmacy Author Type: Pharmacist [...] have any questions, please contact pharmacy at [phone]. Age: [age] year old Allergies: ALLERGIES Allergen Reactions Prozac [Fluoxetine * Other: See Comments suicidal ideations Ativan [Lorazepam] Vomiting Azithromycin Intolerance [place] Anaphylaxis [place] Anaphylaxis pickles Fish Anaphylaxis Levofloxacin In D5w [...] Vancomycin Levels: No results found for: ALICIA Lees [facility] Normal [facility] Comprehensive metabolic 2000 panelon 05-16-2024 Albumin [Mass/Vol] 3.6 g/dL Low 3.9-4.9 [facility] Comment on above: Order Comment: Speci men Type: BLOOD SPECIMEN [facility] Address: [address] [place] [address] Performed By: #### 5 8410-2 #### [facility] CLIA [id number] [address] [place] [facility] ALP [Catalytic activity/Vol] 212 U/L High 34-123 [facility] Comment on above: Order Comment: Speci men Type: BLOOD SPECIMEN [facility] Address: [address] [place] [address] Performed By: #### 5 8410-2 #### [facility] CLIA [id number] [address] [place] ALT [Catalytic activity/Vol] 49 U/L High 7-38 [facility] Comment on above: Order Comment: Speci men Type: BLOOD SPECIMEN [facility] Address: [address] [place] [address] Performed By: #### 5 8410-2 #### [facility] CLIA [id number] [address] [place] Anion gap [Moles/Vol] 10 mmol/L Normal 8-15 [facility] Comment on above: Order Comment: Speci men Type: BLOOD SPECIMEN [facility] Address: [address] [place] [address] Performed By: #### 5 8410-2 #### [facility] CLIA [id number] [address] [place] AST [Catalytic activity/Vol] 57 U/L High 13-35 [facility] Comment on above: Order Comment: Speci men Type: BLOOD SPECIMEN [facility] Address: [address] [place] [address] Performed By: #### 5 8410-2 #### [facility] CLIA [id number] [address] [place] [address] [place] Bilirubin [Mass/Vol] 0.7 mg/dL Normal 0.2-1.3 [facility] Comment on above: Order Comment: Speci men Type: BLOOD SPECIMEN [facility] Address: [address] [place] [address] Performed By: #### 5 8410-2 #### [facility] CLIA [id number] [address] STATES OF [facility] Calcium [Mass/Vol] 8.9 mg/dL Normal 8.5-10.2 [facility] Comment on above: Order Comment: Speci men Type: BLOOD SPECIMEN [facility] Address: [address] [place] [address] Performed By: #### 5 8410-2 #### [facility] CLIA [id number] [address] [place] [address] [place] Chloride [Moles/Vol] 105 mmol/L Normal 98-107 [facility] Comment on above: Order Comment: Speci men Type: BLOOD SPECIMEN [facility] Address: [address] [place] [address] Performed By: #### 5 8410-2 #### [facility] CLIA [id number] [address] [place] [address] [place] CO2 [Moles/Vol] 22 mmol/L Normal 22-30 [facility] Comment on above: Order Comment: David horton Type: BLOOD SPECIMEN [facility] Address: [address] [place] [address] Performed By: #### 5 8410-2 #### [facility] CLIA [id number] [address] [place] [address] [place] Creatinine [Mass/Vol] 0.82 mg/dL Normal 0.58-0.96 [facility] Comment on above: Order Comment: David horton Type: BLOOD SPECIMEN [facility] Address: [address] [place] [place] [address] Performed By: #### 5 8410-2 #### [facility] CLIA [id number] [address] [place] Creatinine and Glomerular filtration rate.predicted panel (S/P/Bld) 91 mL/min/1.73m??? Normal >=60 [facility] Comment on above: Order Comment: David horton Type: BLOOD SPECIMEN [facility] Address: [address] [place] [address] Result Comment: Vidal mated Glomerular Filtration Rate (eGFR) is calculated [...] #### 5 8410-2 #### [facility] CLIA [id number] [address] [place] [address] [place] Glucose [Mass/Vol] 79 mg/dL Normal 74-99 [facility] Comment on above: Order Comment: David men Type: BLOOD SPECIMEN [facility] Address: [address] [place] [address] Result Comment: The [place] Diabetes Association (ADA) provides guidance for cutoff [...] Standards of Medical Care in Diabetes 2016, [place] [employer]. Diabetes Care. 2016.39(Suppl 1). Performed By: #### 5 8410-2 #### [facility] CLIA [id number] [address] [place] Potassium [Moles/Vol] 4.4 mmol/L Normal 3.7-5.1 [facility] Comment on above: Order Comment: David men Type: BLOOD SPECIMEN [facility] Address: [address] [place] [address] Performed By: #### 5 8410-2 #### [facility] CLIA [id number] [address] STATES OF [facility] Protein [Mass/Vol] 6.0 g/dL Low 6.3-8.0 [facility] Comment on above: Order Comment: David horton Type: BLOOD SPECIMEN [facility] Address: [address] [place] [address] Performed By: #### 5 8410-2 #### [facility] CLIA [id number] [address] [place] [address] [place] Sodium [Moles/Vol] 137 mmol/L Normal 136-144 [facility] Comment on above: Order Comment: David men Type: BLOOD SPECIMEN [facility] Address: [address] [place] [address] Performed By: #### 5 8410-2 #### [facility] CLIA [id number] [address] [place] [address] [place] Urea nitrogen [Mass/Vol] 12 mg/dL Normal 7-21 [facility] Comment on above: Order Comment: David horton Type: BLOOD SPECIMEN [facility] Address: [address] [place] [address] Performed By: #### 5 8410-2 #### [facility] CLIA [id number] [address] [place] HIGH SENSITIVITY TROPONIN To n 05-16-2024 Troponin T.cardiac High sensitivity method [Mass/Vol] 25 ng/L High <12 [facility] Comment on above: Order Comment: David horton Type: BLOOD SPECIMEN [facility] Address: [address] [place] [place] [address] Performed By: #### 5 8410-2 #### [facility] CLIA [id number] [address] [place] ALLIED HEALTHon 05-15-2024 ALLIED HEALTH HNO ID: [id number] Author: ABELARDO LEES CT Service: Radiology Author Type: Technologist Type: [facility] Filed: 05/15/2024 12:02 Note Text: Radiology [...] PATIENT PRESENTS WITH AN IMPLANTABLE OR ATTACHED THIN FILM TECHNICIAN: No RADIOLOGY DEPARTMENT: General X-ray: Exam(s) Completed: Chest X-Ray PERIPHERAL IV DATA: Not applicable SIGNED BY: MIRACLE Gomez May 15, 2024 12:01 PM [facility] HEALTH HNO ID: [id number] Author: DOMINGUEZ BEGUM RT(Juan Miguel) Service: Radiology Author Type: Technologist Type: [facility] Filed: 05/15/2024 11:22 Note Text: MEDIC @ BS GETTING LABS, IMAGING ORDER OUTSTANDING Normal [facility] Bacteria Bld Culton 05-16-19 25 Bacteria identified Cx Nom (Bld) CULTURE, BLOOD: No growth 5 days GRAM STAIN: This blood culture had less than the recommended 8 ml per bottle, which could decrease the sensitivity of the test. Normal [facility] Comment on above: Performed By: #### 6 00-7 ####[facility] LABCLIA [id number] [facility] [address] OF [facility] Bacteria identified Cx Nom (Bld) CULTURE, BLOOD: No growth 5 days GRAM STAIN: This blood culture had less than the recommended 8 ml per bottle, which could decrease the sensitivity of the test. Normal [facility] Comment on above: Performed By: #### 6 00-7 ####[facility] LABCLIA [id number] [facility] [address] [place] Bacteria Wnd Culton 05-16-19 25 Bacteria identified Cx Nom (Wound) CULTURE, WOUND: No growth GRAM STAIN: Rare Gram positive cocci Many Polymorphonuclear leukocytes Abnormal [facility] Comment on above: Performed By: #### 6 462-6 ####[facility] LABCLIA [id number] [facility] [place] [address] [place] CBC W Auto Differential pane l (Bld)on 05-15-2024 Basophils (Bld) [#/Vol] 0.08 10*3/uL Normal <0.11 [facility] Comment on above: Order Comment: Speci men Type: BLOOD SPECIMENOrdering Facility: [facility] Address: [address] [place] [address] Performed By: #### 5 7021-8 ####[facility]ATORYCLIA [id number] [place] [id number] [place] Basophils/100 WBC (Bld) 0.9 % Normal [facility] Comment on above: Order Comment: Speci men Type: BLOOD SPECIMENOrdering Facility: [facility] Address: [address] [place] [address] Performed By: #### 5 7021-8 ####[facility] [id number] [address] [place] Differential cell count method Nom (Bld) Auto Normal [facility] Comment on above: Order Comment: Speci men Type: BLOOD SPECIMENOrdering Facility: [facility] Address: [address] [place] [address] Performed By: #### 5 7021-8 ####[facility]ORYCLIA [id number] [place] [address] [place] Eosinophils (Bld) [#/Vol] 0.10 10*3/uL Normal <0.46 [facility] Comment on above: Order Comment: Speci men Type: BLOOD SPECIMENOrdering Facility: [facility] Address: [address] [place] [place] [address] Performed By: #### 5 7021-8 ####[facility]ORYCL[facility] [id number] [address] [place] Eosinophils/100 WBC (Bld) 1.1 % Normal [facility] Comment on above: Order Comment: Speci men Type: BLOOD SPECIMENOrdering Facility: [facility] Address: [address] [place] [address] Performed By: #### 5 7021-8 ####[facility]ORYCL[facility] [id number] [address] [place] Erythrocyte distribution width (RBC) [Ratio] 14.4 % Normal 11.5-15.0 [facility] Comment on above: Order Comment: Speci men Type: BLOOD SPECIMENOrdering Facility: [facility] Address: [address] [place] [place] [address] Performed By: #### 5 7021-8 ####[facility]ORYCL[facility] [id number] [address] [place] Hematocrit (Bld) [Volume fraction] 44.8 % Normal 36.0-46.0 [facility] Comment on above: Order Comment: Speci men Type: BLOOD SPECIMENOrdering Facility: [facility] Address: [address] [place] [address] Performed By: #### 5 7021-8 ####[facility]ORYCLIA [id number] [place] [address] [place] Hemoglobin (Bld) [Mass/Vol] 14.5 g/dL Normal 11.5-15.5 [facility] Comment on above: Order Comment: Speci men Type: BLOOD SPECIMENOrdering Facility: [facility] Address: [address] [place] [place] [address] Performed By: #### 5 7021-8 ####[facility]ORY[facility] [id number] [place] [address] [place] Immature granulocytes (Bld) [#/Vol] 0.04 10*3/uL Normal <0.10 [facility] Comment on above: Order Comment: Speci men Type: BLOOD SPECIMENOrdering Facility: [facility] Address: [address] [place] [place] [address] Performed By: #### 5 7021-8 ####[facility] [id number] [address] [place] Immature granulocytes/100 WBC (Bld) 0.4 % Normal [facility] Comment on above: Order Comment: Speci men Type: BLOOD SPECIMENOrdering Facility: [facility] Address: [address] [place] [place] [address] Performed By: #### 5 7021-8 ####[facility] LABORATORYCLIA [id number] [place] [address] [place] Lymphocytes (Bld) [#/Vol] 0.94 10*3/uL Low 1.00-4.00 [facility] Comment on above: Order Comment: Speci men Type: BLOOD SPECIMENOrdering Facility: [facility] Address: [address] [place] [address] Performed By: #### 5 7021-8 ####[facility]ORATORYCLIA [id number] [address] [place] Lymphocytes/100 WBC (Bld) 10.1 % Normal [facility] Comment on above: Order Comment: Speci men Type: BLOOD SPECIMENOrdering Facility: [facility] Address: [address] [place] [place] [address] Performed By: #### 5 7021-8 ####[facility]ORATORYCLIA [id number] [address] MCH (RBC) [Entitic mass] 31.4 pg Normal 26.0-34.0 [facility] Comment on above: Order Comment: Speci men Type: BLOOD SPECIMENOrdering Facility: [facility] Address: [address] [place] [address] Performed By: #### 5 7021-8 ####[facility] LABORATORYCLIA [id number] [address] [place] MCHC (RBC) [Mass/Vol] 32.4 g/dL Normal 30.5-36.0 [facility] Comment on above: Order Comment: Speci men Type: BLOOD SPECIMENOrdering Facility: [facility] Address: [address] [place] [address] Performed By: #### 5 7021-8 ####[facility]ORATORYCLIA [id number] [address] MCV (RBC) [Entitic vol] 97.0 fL Normal 80.0-100.0 [facility] Comment on above: Order Comment: Speci men Type: BLOOD SPECIMENOrdering Facility: [facility] Address: [address] [place] [address] Performed By: #### 5 7021-8 ####[facility] LABORATORYCLIA [id number] [address] Monocytes (Bld) [#/Vol] 0.49 10*3/uL Normal <0.87 [facility] Comment on above: Order Comment: Speci men Type: BLOOD SPECIMENOrdering Facility: [facility] Address: [address] [place] [address] Performed By: #### 5 7021-8 ####[facility] LABORATORYCLIA [id number] [address] Monocytes/100 WBC (Bld) 5.3 % Normal [facility] Comment on above: Order Comment: Speci men Type: BLOOD SPECIMENOrdering Facility: [facility] Address: [address] [place], [place] [address] Performed By: #### 5 7021-8 ####[facility] LABORATORYCLIA [id number] [place] [address] [place] Neutrophils (Bld) [#/Vol] 7.65 10*3/uL High 1.45-7.50 [facility] Comment on above: Order Comment: Speci men Type: BLOOD SPECIMENOrdering Facility: [facility] Address: [address] [place] [place] [address] Performed By: #### 5 7021-8 ####[facility] LABORATORYCLIA [id number] [address] [place] Neutrophils/100 WBC (Bld) 82.2 % Normal [facility] Comment on above: Order Comment: Speci men Type: BLOOD SPECIMENOrdering Facility: [facility] Address: [address] [place] [address] Performed By: #### 5 7021-8 ####[facility] LABORATORYCLIA [id number] [place] [address] [place] Nucleated RBC (Bld) [#/Vol] 10*3/uL Normal <0.01 [facility] Comment on above: Order Comment: Speci men Type: BLOOD SPECIMENOrdering Facility: [facility] Address: [address] [place] [place] [address] Performed By: #### 5 7021-8 ####[facility] LABORATORYCLIA [id number] [address] Nucleated RBC/100 WBC (Bld) [Ratio] 0.0 /100 WBC Normal [facility] Comment on above: Order Comment: Speci men Type: BLOOD SPECIMENOrdering Facility: [facility] Address: [address] [place] [place] [address] Performed By: #### 5 7021-8 ####[facility] LABORATORYCLIA [id number] [address] Platelet mean volume (Bld) [Entitic vol] 10.2 fL Normal 9.0-12.7 [facility] Comment on above: Order Comment: Speci men Type: BLOOD SPECIMENOrdering Facility: [facility] Address: [address] [place] [address] [place] [id number] Performed By: #### 5 7021-8 ####[facility] LABORATORYCLIA [id number] [place] [address] [facility] [place] Platelets (Bld) [#/Vol] 278 10*3/uL Normal 150-400 [facility] Comment on above: Order Comment: Speci men Type: BLOOD SPECIMENOrdering Facility: [facility] Address: [address] [place] [place] [address] Performed By: #### 5 7021-8 ####[facility] LABORATORYCLIA [id number] [place] [address] [place] RBC (Bld) [#/Vol] 4.62 10*6/uL Normal 3.90-5.20 [facility] Comment on above: Order Comment: Speci men Type: BLOOD SPECIMENOrdering Facility: [facility] Address: [address] [place] [place] [address] Performed By: #### 5 7021-8 ####[facility] LABORATORYCLIA [id number] [place] [id number] [place] WBC (Bld) [#/Vol] 9.30 10*3/uL Normal 3.70-11.00 [facility] Comment on above: Order Comment: Speci men Type: BLOOD SPECIMENOrdering Facility: [facility] Address: [address] [place] [place] [address] Performed By: #### 5 7021-8 ####[facility] LABORATORYCLIA [id number] [place] [id number] [facility] [place] CONSULT PROGon 05-15-2024 CONSULT PROG HNO ID: [id number] Author: ALEXI GARZON RPh Service: Pharmacy Author [...] have any questions, please contact pharmacy at [phone]. Age: [age] year old Allergies: ALLERGIES Allergen Reactions Prozac [Fluoxetine * Other: See Comments suicidal ideations Ativan [Lorazepam] Vomiting Azithromycin Intolerance [place] Anaphylaxis [place] Anaphylaxis pickles Fish Anaphylaxis Levofloxacin In D5w [...] Levels: No results found for: ALICIA Garzon [facility] CT CHEST W IVCONon CT CHEST W IVCON * * *Final Report* * * DATE OF EXAM: May 15 2024 7:02PM [facility] 0539 - CT CHEST W IVCON / [...] interlobular septal thickening likely due to edema. Manager Of Clinical: KIM Transcribe Date/Time: May 16 2024 9:02A Dictated by : BREANN HOOD MD This examination was interpreted and the report reviewed and electronically signed by: BREANN HOOD MD on May 16 2024 9:22AM EST [id number] Normal [facility] Comprehensive metabolic 2000 panelon 05-15-2024 Albumin [Mass/Vol] 4.5 g/dL Normal 3.9-4.9 [facility] Comment on above: Order Comment: Speci men Type: BLOOD SPECIMEN [facility] Address: [address] [place] [address] Performed By: #### 5 8410-2 #### [facility] CLIA [id number] [address] [place] [address] [place] ALP [Catalytic activity/Vol] 127 U/L High 34-123 [facility] Comment on above: Order Comment: Speci men Type: BLOOD SPECIMEN [facility] Address: [address] [place] [place] [address] Performed By: #### 5 8410-2 #### [facility] CLIA [id number] [address] [place] ALT [Catalytic activity/Vol] 22 U/L Normal 7-38 [facility] Comment on above: Order Comment: Speci men Type: BLOOD SPECIMEN [facility] Address: [address] [place] [place] [address] Performed By: #### 5 8410-2 #### [facility] CLIA [id number] [address] Anion gap [Moles/Vol] 8 mmol/L Normal 8-15 [facility] Comment on above: Order Comment: Speci men Type: BLOOD SPECIMEN [facility] Address: [address] [place] [place] [address] Performed By: #### 5 8410-2 #### [facility] CLIA [id number] [address] [place] AST [Catalytic activity/Vol] 23 U/L Normal 13-35 [facility] Comment on above: Order Comment: Speci men Type: BLOOD SPECIMEN [facility] Address: [address] [place] [place] [address] Performed By: #### 5 8410-2 #### [facility] CLIA [id number] [address] [place] [address] [place] Bilirubin [Mass/Vol] 0.9 mg/dL Normal 0.2-1.3 [facility] Comment on above: Order Comment: Speci men Type: BLOOD SPECIMEN [facility] Address: [address] [place] [address] Performed By: #### 5 8410-2 #### [facility] CLIA [id number] [address] [place] [address] [place] Calcium [Mass/Vol] 9.4 mg/dL Normal 8.5-10.2 [facility] Comment on above: Order Comment: Speci men Type: BLOOD SPECIMEN [facility] Address: [address] [place] [place] [address] Performed By: #### 5 8410-2 #### [facility] CLIA [id number] [address] [place] Chloride [Moles/Vol] 104 mmol/L Normal 98-107 [facility] Comment on above: Order Comment: Speci men Type: BLOOD SPECIMEN [facility] Address: [address] [place] [address] Performed By: #### 5 8410-2 #### [facility] CLIA [id number] [address] [place] [address] [place] CO2 [Moles/Vol] 25 mmol/L Normal 22-30 [facility] Comment on above: Order Comment: Speci men Type: BLOOD SPECIMEN [facility] Address: [address] [place] [address] Performed By: #### 5 8410-2 #### [facility] CLIA [id number] [address] [place] [address] [place] Creatinine [Mass/Vol] 0.89 mg/dL Normal 0.58-0.96 [facility] Comment on above: Order Comment: Speci men Type: BLOOD SPECIMEN [facility] Address: [address] [place] [address] Performed By: #### 5 8410-2 #### [facility] CLIA [id number] [address] [place] [address] [place] Creatinine and Glomerular filtration rate.predicted panel (S/P/Bld) 82 mL/min/1.73m??? Normal >=60 [facility] Comment on above: Order Comment: David horton Type: BLOOD SPECIMEN [facility] Address: [address] [place] [place] [address] Result Comment: Vidal mated Glomerular Filtration Rate (eGFR) is calculated [...] GFR. Performed By: #### 5 8410-2 #### [facility] CLIA [id number] [address] [place] [address] [place] Glucose [Mass/Vol] 80 mg/dL Normal 74-99 [facility] Comment on above: Order Comment: David horton Type: BLOOD SPECIMEN [facility] Address: [address] [place] [address] Result Comment: The [place] [employer] (ADA) provides guidance for cutoff [...] Standards of Medical Care in Diabetes 2016, [place] [employer]. Diabetes Care. 2016.39(Suppl 1). Performed By: #### 5 8410-2 #### [facility] CLIA [id number] [address] [place] [address] [place] Potassium [Moles/Vol] 4.3 mmol/L Normal 3.7-5.1 [facility] Comment on above: Order Comment: David horton Type: BLOOD SPECIMEN [facility] Address: [address] [place] [address] Performed By: #### 5 8410-2 #### [facility] CLIA [id number] [address] Protein [Mass/Vol] 7.3 g/dL Normal 6.3-8.0 [facility] Comment on above: Order Comment: Speci men Type: BLOOD SPECIMEN [facility] Address: [address] [place] [place] [address] Performed By: #### 5 8410-2 #### [facility] CLIA [id number] [address] [place] Sodium [Moles/Vol] 137 mmol/L Normal 136-144 [facility] Comment on above: Order Comment: Speci men Type: BLOOD SPECIMEN [facility] Address: [address] [place] [place] [address] Performed By: #### 5 8410-2 #### [facility] CLIA [id number] [address] [place] Urea nitrogen [Mass/Vol] 11 mg/dL Normal 7-21 [facility] Comment on above: Order Comment: Speci men Type: BLOOD SPECIMEN [facility] Address: [address] [place] [place] [address] Performed By: #### 5 8410-2 #### [facility] CLIA [id number] [address] ED NOTEon 05-15-2024 ED NOTE HNO ID: [id number] Author: CK TADEO, YESENIA Service: Nursing Author Type: Registered Nurse Type: ED Notes Filed: 05/15/2024 17:54 Note Text: Report called to [address] [place] [address] ED PROV NOTEon 05-15-2024 ED PROV NOTE HNO ID: [id number] Author: TARIQ PEREZ MD Service: Emergency Medicine Author Type: Physician Type: ED Provider Notes Filed: 05/15/2024 15:32 Note Text: ED Provider Note Patient Name: Michelle Mitchell : 1980 SERVICE DATE: 3/4/25 History Patient presents with: Abscess: Left leg [...] persistent chest pain. 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 Normal [facility] EKGon 05-15-2024 Electrocardiogram Ventricular Rate : 7 1 BPM Atrial Rate : 71 BPM P-R Interval : 162 ms QRS Duration : 90 ms Q-T Interval : 406 ms QTC Calculation(Bazett) : 441 ms Calculated P [place] : 41 degrees Calculated R [place] : 260 degrees Calculated T [place] : 75 degrees NORMAL SINUS RHYTHM LEFT ATRIAL ENLARGEMENT BIVENTRICULAR HYPERTROPHY CANNOT RULE OUT SEPTAL INFARCT , AGE UNDETERMINED POSSIBLE LATERAL INFARCT (CITED ON OR BEFORE 22-Dec-2018) ABNORMAL ECG When compared with selected ECG of 24-Apr-2021 22:05, QRS AXIS SHIFTED LEFT no STEMI Confirmed by TARIQ PEREZ MD ([id number]) on 05/15/2024 12:29:22 PM NAME : MICHELLE MITCHELL PID : [id number] : 1980 Gender : Female Race : [...] no STEMI Confirmed by TARIQ PEREZ MD ([id number]) on 05/15/2024 12:29:22 PM Test Reason : Location : 1 : ER ED Overread By : TARIQ PEREZ MD Edited By : TARIQ PEREZ MD Referred By : , Acquired by : Carlos Eduardo NAVARRETE [facility] Gas and Carbon monoxide pane l (BldV)on 05-15-2024 Base excess Calc (BldV) [Moles/Vol] 0 mmol/L Normal 0-2 [facility] Comment on above: Order Comment: Speci men Type: VENOUS BLOOD SPECIMENOrdering Facility: [facility] Address: [address] [place] [address] Performed By: #### 2 4344-4 ####[facility]IRATORYCLIA [id number] [facility] [id number] [place] [id number] Carboxyhemoglobin (BldV) [Mass fraction] 2.5 % High 0.0-2.0 [facility] Comment on above: Order Comment: Speci men Type: VENOUS BLOOD SPECIMENOrdering Facility: [facility] Address: [address] [place] [place] [address] Result Comment: Carb oxyhemoglobin Reference Range for Smokers: 2.0-8.0% Performed By: #### 2 4344-4 ####[facility] [id number] [facility] RESPIRAT[facility] [id number] [address] CO2 (BldV) [Partial pressure] 41 mm[Hg] Low 42-55 [facility] Comment on above: Order Comment: Speci men Type: VENOUS BLOOD SPECIMENOrdering Facility: [facility] Address: [address] [place] [place] [address] Performed By: #### 2 4344-4 ####[facility] [id number] [facility]OS[facility] RESPIRATORY [id number] [address] [address] CO2 adjusted to patient's actual temperature (BldV) [Partial pressure] Normal [facility] Comment on above: Order Comment: Speci men Type: VENOUS BLOOD SPECIMENOrdering Facility: [facility] Address: [address] [place] [place] [address] Performed By: #### 2 4344-4 ####[facility] [id number] [facility] RES[facility]IRATORY [id number] [address] [address] HCO3 (Bld) [Moles/Vol] 25 mmol/L Normal 24-28 [facility] Comment on above: Order Comment: Speci men Type: VENOUS BLOOD SPECIMENOrdering Facility: [facility] Address: [address] [place] [address] Performed By: #### 2 4344-4 ####[facility] [id number] [facility]IRAT[facility] [id number] [address] [address] Hemoglobin (Bld) [Mass/Vol] 15.4 g/dL Normal 11.5-15.5 [facility] Comment on above: Order Comment: Speci men Type: VENOUS BLOOD SPECIMENOrdering Facility: [facility] Address: [address] [place] [address] Performed By: #### 2 4344-4 ####[facility]ATORYCLIA [id number] [facility] [id number] [address] [address] Lactate [Moles/Vol] 1.2 mmol/L Normal 0.5-2.2 [facility] Comment on above: Order Comment: Speci men Type: VENOUS BLOOD SPECIMENOrdering Facility: [facility] Address: [address] [place] [address] Performed By: #### 2 4344-4 ####[facility]ORYCL[facility] [id number] [facility] [id number] [address] [address] Methemoglobin (Bld) [Mass fraction] % Normal 0.0-1.5 [facility] Comment on above: Order Comment: Speci men Type: VENOUS BLOOD SPECIMENOrdering Facility: [facility] Address: [address] [place] [address] Performed By: #### 2 4344-4 ####[facility] [id number] [facility]OS[facility] RESPIRATORY [id number] [address] [address] O2 THERAPY RA=Room Air Normal [facility] Comment on above: Order Comment: Speci men Type: VENOUS BLOOD SPECIMENOrdering Facility: [facility] Address: [address] [place] [address] Performed By: #### 2 4344-4 ####[facility]ORYIA [id number] [facility] [id number] [address] [address] Oxygen (BldV) [Partial pressure] 32 mm[Hg] Low 35-45 [facility] Comment on above: Order Comment: Speci men Type: VENOUS BLOOD SPECIMENOrdering Facility: [facility] Address: [address] [place] [address] Performed By: #### 2 4344-4 ####[facility] [id number] [facility] [id number] [address] [address] Oxygen adjusted to patient's actual temperature (BldV) [Partial pressure] Normal [facility] Comment on above: Order Comment: Speci men Type: VENOUS BLOOD SPECIMENOrdering Facility: [facility] Address: [address] [place] [address] Performed By: #### 2 4344-4 ####[facility]ORYCL[facility] [id number] [facility] [id number] [address] [address] Oxygen saturation in Venous blood 59 % Low 60-85 [facility] Comment on above: Order Comment: Speci men Type: VENOUS BLOOD SPECIMENOrdering Facility: [facility] Address: [address] [place] [address] Performed By: #### 2 4344-4 ####[facility]ORYCL[facility] [id number] [facility] [id number] [address] [address] Oxyhemoglobin (BldV) [Mass fraction] 57 % Low 60-85 [facility] Comment on above: Order Comment: Speci men Type: VENOUS BLOOD SPECIMENOrdering Facility: [facility] Address: [address] [place] [address] Performed By: #### 2 4344-4 ####[facility] [id number] [facility] [id number] [address] [address] pH (BldV) 7.39 [pH] Normal 7.32-7.42 [facility] Comment on above: Order Comment: Speci men Type: VENOUS BLOOD SPECIMENOrdering Facility: [facility] Address: [address] [place] [address] Performed By: #### 2 4344-4 ####[facility]ORYCL[facility] [id number] [facility] [id number] [address] [address] pH adjusted to patient's actual temperature (BldV) [facility] Comment on above: Order Comment: Speci men Type: VENOUS BLOOD SPECIMENOrdering Facility: [facility] Address: [address] [place] [address] Performed By: #### 2 4344-4 ####[facility] [id number] [facility] [id number] [address] Potassium [Moles/Vol] 3.9 mmol/L Normal 3.5-5.0 [facility] Comment on above: Order Comment: Speci men Type: VENOUS BLOOD SPECIMENOrdering Facility: [facility] Address: [address] [place] [address] Performed By: #### 2 4344-4 ####[facility]ORYIA [id number] [facility] [id number] [address] [address] HIGH SENSITIVITY TROPONIN T (INITIAL)on 05-15-2024 Troponin T.cardiac High sensitivity method [Mass/Vol] 22 ng/L High <12 [facility] Comment on above: Order Comment: Speci men Type: BLOOD SPECIMEN [facility] Address: [address] [place] [address] Performed By: #### 5 8410-2 #### [facility] CLIA [id number] [address] HIGH SENSITIVITY TROPONIN T (SECOND)on 05-15-2024 Troponin T.cardiac High sensitivity method [Mass/Vol] 22 ng/L High <12 [facility] Comment on above: Order Comment: Speci men Type: BLOOD SPECIMENOrdering Facility: [facility] Address: [address] [place] [place] [address] Performed By: #### L [id number] ####[facility]ORYCLIA [id number] [address] HIGH SENSITIVITY TROPONIN T (THIRD) 3 HRS AFTER INITIALon 05-15-2024 Troponin T.cardiac High sensitivity method [Mass/Vol] 24 ng/L High <12 [facility] Comment on above: Order Comment: Speci men Type: BLOOD SPECIMENOrdering Facility: [facility] Address: [address] [place] [address] Performed By: #### L [id number] ####[facility]ORYCLIA [id number] [address] HISTORY PHYSICALon HISTORY PHYSICAL HNO ID: [id number] Author: DEX WILKINSON MD Service: Family Practice [...] PERMANENT TRANSVENOUS PACEMAKER INSERTION 2006 ICD implant, [facility] ANESTHESIA TUBAL LIGATION/TRANSECTION APPENDECTOMY 05/05/2014 , [...] suicidal ideations Ativan [Lorazepam] Vomiting Azithromycin Intolerance [place] Anaphylaxis [place] Anaphylaxis pickles Fish Anaphylaxis Levofloxacin In D5w Swelling, Itching IV site swollen, ceased after d/c, redness and itching at site Neurontin [Gabapent* Mental Status Change Shellfish Anaphylaxis Tigan [Trimethobenz* Anaphylaxis Ultram [Tram (more content not included)... Normal [facility] NT-proBNP SerPl-[facility] Healthon 05-15 Natriuretic peptide.B prohormone N-Terminal [Mass/Vol] 2616 pg/mL High <125 [facility] Comment on above: Order Comment: David horton Type: BLOOD SPECIMEN [facility] Address: [address] [place] [place] [address] Performed By: #### 5 8410-2 #### [facility] CLIA [id number] [address] PT panel Coag (PPP)on 2024 INR Coag (PPP) [Relative time] 1.1 {INR} Normal 0.9-1.3 [facility] Comment on above: Order Comment: David horton Type: BLOOD SPECIMENOrdering Facility: [facility] Address: [address] [place] [place] [address] Result Comment: Nancy min K Antagonist (VKA) Therapeutic Range: INR 2 to 3 (Target INR of 2.5) Note: For patients treated with VKA drugs, such as warfarin, the [place] [employer] 2012 Guideline recommends [...] 2.5 to 3.5 (target INR of 3). Guyatt GH, et al. Chest 2012, 141:7S-47S Gia TURNER, et al. JAC 2017, 70: 252-289 Performed By: #### 3 4528-0, 60363-6 ####[facility]ORYCL[facility] [id number] [address] OF [facility] PT Coag (PPP) [Time] 11.7 s Normal 9.7-13.0 [facility] Comment on above: Order Comment: David horton Type: BLOOD SPECIMENOrdering Facility: [facility] Address: [address] [place] [address] [place] [address] Performed By: #### 3 4528-0, 37854-7 ####[facility]ORYCL[facility] [id number] [address] XR CHEST 1V FRONTAL PORTon 0 05-15-2024 [...] Other: . IMPRESSION: Bilateral consolidation is suspected. Manager Of Clinical: PSCB Transcribe Date/Time: May 15 2024 12:02P Dictated by : BOGDAN LUNA MD This examination was interpreted and the report reviewed and electronically signed by: BOGDAN LUNA MD on May 15 2024 12:05PM EST [id number] Normal [facility] aPTT PPPon 05-15-2024 aPTT Coag (PPP) [Time] 28.2 s Normal 23.0-32.4 [facility] Comment on above: Order Comment: Speci men Type: BLOOD SPECIMENOrdering Facility: [facility] Address: [address] [place] [address] Performed By: #### 3 4528-0, 43558-7 ####[facility]ORATORYCLIA [id number] [place] [address] [place] Emergency Department Summary on 05-12-2024 Emergency Department Summary Normal [facility] Pacemaker Checkon 03-28-2024 Pacemaker Check Normal [facility] CBC (INCLUDES DIFF/PLT)on Basophils (Bld) [#/Vol] 0.056 10*3/uL Normal 0-200 [facility] Comment on above: Performed By: #### 1 0231, 7137, 5616, 1005, 899, 6399 #### [facility] [address], [address] [place] [address] Market Intelligence Consultant: Gage Viramontes MD Basophils/100 WBC (Bld) 0.5 % Normal [facility] Comment on above: Performed By: #### 1 0231, 7137, 5616, 1005, 899, 6399 #### [facility] [place] [address] Market Intelligence Consultant: Gage Viramontes MD Eosinophils (Bld) [#/Vol] 0.122 10*3/uL Normal 15-500 [facility] Comment on above: Performed By: #### 1 0231, 7137, 5616, 1005, 899, 6399 #### [facility] [place] [address] Market Intelligence Consultant: Gage Viramontes MD Eosinophils/100 WBC (Bld) 1.1 % Normal [facility] Comment on above: Performed By: #### 1 0231, 7137, 5616, 1005, 899, 6399 #### [facility] [place] [address] Market Intelligence Consultant: Gage Viramontes MD Erythrocyte distribution width (RBC) [Ratio] 11.5 % Normal 11.0-15.0 [facility] Comment on above: Performed By: #### 1 0231, 7137, 5616, 1005, 899, 6399 #### [facility] of [address], [address] [place] [address] Market Intelligence Consultant: Gage Viramontes MD Hematocrit (Bld) [Volume fraction] 43.8 % Normal 35.0-45.0 [facility] Comment on above: Performed By: #### 1 0231, 7137, 5616, 1005, 899, 6399 #### [facility] of [address], [address] [place] [address] Market Intelligence Consultant: Gage Viramontes MD Hemoglobin (Bld) [Mass/Vol] 14.5 g/dL Normal 11.7-15.5 [facility] Comment on above: Performed By: #### 1 0231, 7137, 5616, 1005, 899, 6399 #### [facility] of [place] [address] Market Intelligence Consultant: Gage Viramontes MD Lymphocytes (Bld) [#/Vol] 1.021 10*3/uL Normal 850-3900 [facility] Comment on above: Performed By: #### 1 0231, 7137, 5616, 1005, 899, 6399 #### [facility] of [address], [address] [place] [address] Market Intelligence Consultant: Gage Viramontes MD Lymphocytes/100 WBC (Bld) 9.2 % Normal [facility] Comment on above: Performed By: #### 1 0231, 7137, 5616, 1005, 899, 6399 #### [facility] of [place] [address] Market Intelligence Consultant: Gage Viramontes MD MCH (RBC) [Entitic mass] 31.7 pg Normal 27.0-33.0 [facility] Comment on above: Performed By: #### 1 0231, 7137, 5616, 1005, 899, 6399 #### [facility] of [place] [address] Market Intelligence Consultant: Gage Viramontes MD MCHC (RBC) [Mass/Vol] 33.1 [...] 5616, 1005, 899, 6399 #### [facility] [place] [address] Market Intelligence Consultant: Gage Viramontes MD MCV (RBC) [Entitic vol] 95.8 fL Normal 80.0-100.0 [facility] Comment on above: Performed By: #### 1 0231, 37, 5616, 1005, 899, 6399 #### [facility] [place] [address] Market Intelligence Consultant: Gage Viramontes MD Monocytes (Bld) [#/Vol] 0.522 10*3/uL Normal 200-950 [facility] Comment on above: Performed By: #### 1 0231, 37, 5616, 1005, 899, 6399 #### [facility] [place] [address] Market Intelligence Consultant: Gage Viramontes MD Monocytes/100 WBC (Bld) 4.7 % Normal [facility] Comment on above: Performed By: #### 1 0231, 37, 5616, 1005, 899, 6399 #### [facility] of [place] [address] Market Intelligence Consultant: Gage Viramontes MD Neutrophils (Bld) [#/Vol] 9.38 10*3/uL High 2539-0258 [facility] Comment on above: Performed By: #### 1 0231, 37, 5616, 1005, 899, 6399 #### [facility] of [address] [place] [address] Market Intelligence Consultant: Gage Viramontes MD Neutrophils/100 WBC (Bld) 84.5 % Normal [facility] Comment on above: Performed By: #### 1 0231, 7137, 5616, 1005, 899, 6399 #### [facility] of [address], [address] [place] [address] Market Intelligence Consultant: Gage Viramontes MD Platelet mean volume (Bld) [Entitic vol] 12.1 fL Normal 7.5-12.5 [facility] Comment on above: Performed By: #### 1 0231, 7137, 5616, 1005, 899, 6399 #### [facility] of [place] [address] Market Intelligence Consultant: Gage Viramontes MD Platelets (Bld) [#/Vol] 270 10*3/uL Normal 140-400 [facility] Comment on above: Performed By: #### 1 0231, 7137, 5616, 1005, 899, 6399 #### [facility] of [address], [address] [place] [address] Market Intelligence Consultant: Gage Viramontes MD RBC (Bld) [#/Vol] 4.57 10*6/uL Normal 3.80-5.10 [facility] Comment on above: Performed By: #### 1 0231, 7137, 5616, 1005, 899, 6399 #### [facility] of [place] [address] Market Intelligence Consultant: Gage Viramontes MD WBC (Bld) [#/Vol] 11.1 10*3/uL High 3.8-10.8 [facility] Comment on above: Performed By: #### 1 0231, 7137, 5616, 1005, 899, 6399 #### [facility] of [address], [address] [place] [address] Market Intelligence Consultant: Gage Viramontes MD [facility] METABOLIC PANBanner 01-06-2024 Albumin [Mass/Vol] 5.0 g/dL Normal 3.6-5.1 [facility] Comment on above: Performed By: #### 1 0231, 7137, 5616, 1005, 899, 6399 #### [facility] of [place] [address] Market Intelligence Consultant: Gage Viramontes MD Albumin/Globulin [Mass ratio] 1.9 {ratio} Normal 1.0-2.5 [facility] Comment on above: Performed By: #### 1 0231, 37, 5616, 1005, 899, 6399 #### [facility] of [address], [address] [place] [address] Market Intelligence Consultant: Gage Viramontes MD ALP [Catalytic activity/Vol] 93 U/L Normal 31-125 [facility] Comment on above: Performed By: #### 1 0231, 37, 561, 1005, 899, 6399 #### [facility] of [address], [address] [place] [address] Market Intelligence Consultant: Gage Viramontes MD ALT [Catalytic activity/Vol] 27 U/L Normal 6-29 [facility] Comment on above: Performed By: #### 1 0231, 7136, 561, 1005, 899, 6399 #### [facility] of [place] [address] Market Intelligence Consultant: Gage Viramontes MD AST [Catalytic activity/Vol] 21 U/L Normal 10-30 [facility] Comment on above: Performed By: #### 1 0231, 37, 5616, 1005, 899, 6399 #### [facility] of [place] [address] Market Intelligence Consultant: Gage Viramontes MD Bilirubin [Mass/Vol] 0.6 mg/dL Normal 0.2-1.2 [facility] Comment on above: Performed By: #### 1 0231, 7137, 5616, 1005, 899, 6399 #### [facility] of [address], [address] [place] [address] Market Intelligence Consultant: Gage Viramontes MD BUN/CREATININE RATIO SEE NOTE: Normal 6-22 [facility] Comment on above: Result Comment: Not Reported: BUN and Creatinine are within reference range. Performed By: #### 1 0231, 7137, 5616, 1005, 899, 6399 #### [facility] [place] [address] Market Intelligence Consultant: Gage Viramontes MD Calcium [Mass/Vol] 9.8 mg/dL Normal 8.6-10.2 [facility] Comment on above: Performed By: #### 1 0231, 7137, 5616, 1005, 899, 6399 #### [facility] [place] [address] Market Intelligence Consultant: Gage Viramontes MD Chloride [Moles/Vol] 108 mmol/L Normal 98-110 [facility] Comment on above: Performed By: #### 1 0231, 7137, 5616, 1005, 899, 6399 #### [facility] [place] [address] Market Intelligence Consultant: Gage Viramontes MD CO2 [Moles/Vol] 22 mmol/L Normal 20-32 [facility] Comment on above: Performed By: #### 1 0231, 7137, 5616, 1005, 899, 6399 #### [facility] [place] [address] Market Intelligence Consultant: Gage Viramontes MD Creatinine [Mass/Vol] 0.77 mg/dL Normal 0.50-0.[address] [facility] [address] [facility] Comment on above: Performed By: #### 1 0231, 7137, 5616, 1005, 899, 6399 #### [facility] [place] [address] Market Intelligence Consultant: Gage Viramontes MD GFR/1.73 sq M.predicted among non-blacks MDRD (S/P/Bld) [Vol rate/Area] 97 mL/min/{1.73_m2} Normal > OR = 60 [facility] Comment on above: Performed By: #### 1 0231, 7137, 5616, 1005, 899, 6399 #### [facility] [place] [address] Market Intelligence Consultant: Gage Viramontes MD Globulin (S) [Mass/Vol] 2.6 g/dL Normal 1.9-3.7 [facility] Comment on above: Performed By: #### 1 0231, 37, 561, 1005, 899, 6399 #### [facility] of [address], [address] [place] [address] Market Intelligence Consultant: Gage Viramontes MD Glucose [Mass/Vol] 82 mg/dL Normal 65-99 [facility] Comment on above: Result Comment: Fasting reference interval Performed By: #### 1 0231, 37, 561, 1005, 899, 6399 #### [facility] of [address], [address] [place] [address] Market Intelligence Consultant: Gage Viramontes MD Potassium [Moles/Vol] 3.9 mmol/L Normal 3.5-5.[address] [facility] Comment on above: Performed By: #### 1 0231, 7136, 561, 1005, 899, 6399 #### [facility] of [place] [address] Market Intelligence Consultant: Gage Viramontes MD Protein [Mass/Vol] 7.6 g/dL Normal 6.1-8.1 [facility] Comment on above: Performed By: #### 1 0231, 37, 561, 1005, 899, 6399 #### [facility] [place] [address] Market Intelligence Consultant: Gage Viramontes MD Sodium [Moles/Vol] 138 mmol/L Normal 135-146 [facility] Comment on above: Performed By: #### 1 0231, 7137, 5616, 1005, 899, 6399 #### [facility] of [address], [address] [place] [address] Market Intelligence Consultant: Gage Viramontes MD Urea nitrogen [Mass/Vol] 12 mg/dL Normal 10-05 [facility] Comment on above: Performed By: #### 1 0231, 71, 5616, 1005, 899, 6399 #### [facility] [place] [address] Market Intelligence Consultant: Gage Viramontes MD FSH AND LHon 01-06-2024 FSH 3.7 mIU/mL Normal [facility] Comment on above: Result Comment: Refe rence Range Follicular Phase 2.5-10.2 Mid-cycle Peak 3.1-17.7 Luteal Phase 1.5- 9.1 Postmenopausal 23.0-116.3 Performed By: #### 1 0231, 7137, 5616, 1005, 899, 6399 #### [facility] [place] [address] Market Intelligence Consultant: Gage Viramontes MD LH 3.0 mIU/mL Normal [facility] Comment on above: Result Comment: Refe rence Range Follicular Phase 1.9-12.5 Mid-Cycle Peak 8.7-76.3 Luteal Phase 0.5-16.9 Postmenopausal 10.0-54.7 Performed By: #### 1 0231, 7137, 5616, 1005, 899, 6399 #### [facility] [place] [address] Market Intelligence Consultant: Gage Viramontes MD IRON, TIBC AND FERRITIN PANE [facility] 01-06-2024 % SATURATION 37 % (calc) Normal 16-45 [facility] Comment on above: Performed By: #### 1 0231, 7137, 5616, 1005, 899, 6399 #### [facility] [place] [address] Market Intelligence Consultant: Gage Viramontes MD Ferritin [Mass/Vol] 73 ng/mL Normal 16-232 [facility] Comment on above: Performed By: #### 1 0231, 7137, 5616, 1005, 899, 6399 #### [facility] [address], [address] [place] [address] Market Intelligence Consultant: Gage Viramontes MD IRON BINDING CAPACITY 340 mcg/dL (calc) Normal 250-450 [facility] Comment on above: Performed By: #### 1 0231, 7137, 5616, 1005, 899, 6399 #### [facility] [address], [address] [place] [address] Market Intelligence Consultant: Gage Viramontes MD IRON, TOTAL 125 mcg/dL Normal 40-190 [facility] Comment on above: Performed By: #### 1 0231, 7137, 5616, 1005, 899, 6399 #### [facility] [address], [address] [place] [address] Market Intelligence Consultant: Gage Viramontes MD TEST AUTHORIZATIONon 024 CLIENT CONTACT: Normal [facility] Comment on above: Performed By: #### 1 0231, 7137, 5616, 1005, 899, 6399 #### [facility] [address], [address] [place] [address] Market Intelligence Consultant: Gage Viramontes MD COMMENT Normal [facility] Comment on above: Result Comment: Plea se have the ordering physician or his or her authorized hr representative sign a copy of this report and promptly return it by faxing it to: [phone] or by returning the form to your railway signalling engineer. Performed By: #### 1 0231, 7137, 5616, 1005, 899, 6399 #### [facility] [address], [address] [place] [address] Market Intelligence Consultant: Gage Viramontes MD REPORT ALWAYS MESSAGE SIGNATURE Normal [facility] Comment on above: Result Comment: The laboratory testing on this patient was verbally requested or confirmed by the ordering physician or his or her authorized hr representative after contact with an employee of [employer]. Federal regulations require that we maintain on file written authorization for all laboratory testing. Accordingly we are asking that the ordering physician or his or her authorized hr representative sign a copy of this report and promptly return it to the client relation specialist. Signature: _ Performed By: #### 1 0231, 7137, 5616, 1005, 899, 6399 #### [facility] [address], [address] [place] [address] Market Intelligence Consultant: Gage Viramontes MD TEST CODE: [id number] Normal [facility] Comment on above: Performed By: #### 1 0231, 7137, 5616, 1005, 899, 6399 #### [facility] [address], [address] [place] [address] Market Intelligence Consultant: Gage Viramontes MD TEST NAME: CMP Normal [facility] Comment on above: Performed By: #### 1 0231, 7137, 5616, 1005, 899, 6399 #### [facility] [address], [address] [place] [address] Market Intelligence Consultant: Gage Viramontes MD [facility] 01-06-2024 TSH Qn 0.95 m[IU]/L Normal [facility] Comment on above: Result Comment: Refe rence Range > or = 20 Years 0.40-4.50 Ranges First trimester 0.26-2.66 Second trimester 0.55-2.73 Third trimester 0.43-2.91 Performed By: #### 1 0231, 7137, 5616, 1005, 899, 6399 #### [facility] [place] [address] Market Intelligence Consultant: Gage Viramontes MD Final Surgical Pathology Rep [facility] 11-01-2023 Final Surgical Pathology Report . Pathology Reports Accession: Collected Date/Time: Received Date/Time: Pathologist: [id number] 10/31/2023 10:23 EDT 10/31/2023 14:26 EDT MD [...] All parts labelled with patient name and [id number] A. Received in formalin labeled terminal ileum are 2 maharaj-pink tissue fragments each measuring 0.2 cm. TS-1 B. Received in formalin labeled right and left colon are multiple maharaj-pink tissue fragments aggregating 1.3 x 0.2 x 0.2 cm. TS-1 Flakita Rodrigez, Grossing Sponge Diver/ Dr. Nabor Jarrett, Pathologist Performed by Flakita Rodrigez MICROSCOPIC DESCRIPTION: The microscopic examination is performed, except in the case of Gross Only. Electronically Signed by Pathology Report verified by [facility] KAYLYN PELAYO MD Sign out Date: 11/01/2023 09:26 Performing Lab: [facility], [address] [place] [address] Pathology Dept Disclaimer If ancillary studies were utilized, the following Laboratory Developed Test (LDT) disclaimer will apply: Under CLIA requirements, [facility] is qualified to perform high complexity testing. For all ancillary stains, positive and negative controls stain appropriately. Performance characteristics of immunohistochemical and chromogenic in-situ hybridization tests have been determined by [facility]. These tests are used for clinical purposes, They should not be regarded as investigational or for research. Normal [facility] (ND) Absolute lymphocyte countOrd ered By: Suman Lowe on 07-04-2023 Lymphocytes Auto (Unsp spec) [#/Vol] 1.65 10*3/uL 0.83-4.51 [facility] Automated lymphocyte count a s percentage of total leukocytesOrdered By: Suman Lowe on 07-04-2023 Lymphocytes/100 WBC Auto (Unsp spec) 19.6 % 19-41 [facility] Basophil percentageOrdered B y: Suman Lowe on 07-04-2023 Basophil percentage 0-5 SEEN /hpf 0-5 [facility] Basophils/100 WBC (Bld) 0.8 % 0-1 [facility] Bilirubin [Mass/Vol] 0.60 mg/dL 0.20-1.00 [facility] Comment on above: For patients on eltr ombopag therapy, use of Dimension [place] TBIL is not recommended. Chloride [Moles/Vol] 107 mmol/L 98-107 [facility] Eosinophils/100 WBC (Bld) 1.5 % 0-5 [facility] Glucose [Mass/Vol] 105 mg/dL 74-106 [facility] Comment on above: Fasting Glucose resu lt from 100 to 125 mg/dL suggests IMPAIRED HOMEOSTASIS per A.D.A. criteria. Hemoglobin (Bld) [Mass/Vol] 13.6 g/dL 12.0-15.0 [facility] Monocytes/100 WBC (Bld) 6.1 % 0-10 [facility] Neutrophils (Bld) [#/Vol] 6.0 10*3/uL 2.0-7.7 [facility] Neutrophils/100 WBC (Bld) 71.6 % 47-70 [facility] Potassium [Moles/Vol] 4.0 mmol/L 3.5-5.1 [facility] Comment on above: Moderate Hemolysis, Result may be falsely increased. Protein [Mass/Vol] 7.1 g/dL 6.4-8.2 [facility] Sodium [Moles/Vol] 137 mmol/L 136-145 [facility] WBC (Bld) [#/Vol] 8.4 10*3/uL 4.4-11.0 [facility] Bilirubin Test strip Ql (U)O rdered By: Suman Lowe on 07-04-2023 Bilirubin Ql (U) Negative Negative [facility] Determination of erythrocyte mean corpuscular volume (MCV)Ordered By: Suman Lowe on 07-04-2023 MCV (RBC) [Entitic vol] 97.7 fL 81-99 [facility] Erythrocyte distribution wid th ratioOrdered By: Suman Lowe on 07-04-2023 Erythrocyte distribution width (RBC) [Ratio] 13.2 % 11.6-14.6 [facility] Erythrocyte distribution wid th standard deviationOrdered By: Suman Lowe on 07-04-2023 Erythrocyte distribution width (RBC) [Entitic vol] 47.3 fL 35.1-43.9 [facility] Hematocrit Auto (Bld) [Volum e fraction]Ordered By: Suman Lowe on 07-04-2023 Hematocrit (Bld) [Volume fraction] 42.3 % 37-47 [facility] Immature granulocytes/100 WB C Auto (Bld)Ordered By: Suman Lowe on 07-04-2023 Immature granulocytes/100 WBC (Bld) 0.400 % 0.0-0.9 [facility] Comment on above: IG% - Immature Granu locytes (promyelocytes, myelocytes and metamyelocytes) > 1% indicates that a LEFT SHIFT is Present. Ketones Test strip Ql (U)Ord ered By: Suman Lowe on 07-04-2023 Ketones Ql (U) Negative Negative [facility] Laboratory - Chemistry and C hemistry - challengeOrdered By: Suman Lowe on 07-04-2023 Albumin/Globulin [Mass ratio] 1.2 {ratio} 0.9-2.4 [facility] ALP [Catalytic activity/Vol] 97 U/L 45-117 [facility] ALT [Catalytic activity/Vol] 29 U/L 13-56 [facility] CO2 [Moles/Vol] 24.0 mmol/L 21.0-32.0 [facility] Globulin (S) [Mass/Vol] 3.2 g/dL 2.2-4.2 [facility] Lipase [Catalytic activity/Vol] 16 U/L 13-75 [facility] Comment on above: Please note:LIPASE r evised reference range effective 22. New Lipase methodology. Expected to produce lower values than the previous assay method. NEW Reference Range: 13 - 75 U/L Urea nitrogen/Creatinine [Mass ratio] 11.1 mg/mg 10-20 [facility] Laboratory - Hematology and Cell countsOrdered By: Suman Lowe on 07-04-2023 MCH (RBC) [Entitic mass] 31.4 pg 27.0-32.0 [facility] MCHC (RBC) [Mass/Vol] 32.2 g/dL 32-36 [facility] Nucleated RBC/100 WBC (Bld) [Ratio] 0 % 0-5 [facility] Platelet mean volume (Bld) [Entitic vol] 12.0 fL 6.2-12.0 [facility] Platelets (Bld) [#/Vol] 195 10*3/uL 150-450 [facility] Mucus LM Ql (Urine sed)Order ed By: Suman Lowe on 07-04-2023 Mucus Ql (Urine sed) 0 SEEN /hpf [facility] Nitrite Test strip Ql (U)Ord ered By: Suman Lowe on 07-04-2023 Nitrite Ql (U) Negative Negative [facility] No Panel InformationOrdered By: Suman Lowe on 07-04-2023 Urine RBC 10-25 SEEN /hpf 0-5 [facility] Estimated Creatinine Clearance Calc 77.33 ml/min [facility] Estimated GFR (MDRD) Amer 99 mL/min >60 [facility] Comment on above: GFR Calc Estimated GFR (MDRD) Non-Af Amer 82 mL/min >60 [facility] Comment on above: Non- GFR Calc Protein Test strip Ql (U)Ord ered By: Suman Lowe on 07-04-2023 Protein Ql (U) 15 mg/dl Negative [facility] RBC Auto (Bld) [#/Vol]Ordere d By: Suman Lowe on 07-04-2023 RBC (Bld) [#/Vol] 4.33 10*6/uL 4.2-5.4 [facility] Serum or plasma calcium leslie urement (mass/volume)Ordered By: Suman Lowe on 07-04-2023 Calcium [Mass/Vol] 8.9 mg/dL 8.5-10.1 [facility] Serum or plasma choriogonado tropin detectionOrdered By: Suman Lowe on 07-04-2023 HCG ( test) Ql Negative [facility] Serum or plasma creatinine m easurement (mass/volume)Ordered By: Suman Lowe on 07-04-2023 Creatinine [Mass/Vol] 0.81 mg/dL 0.55-1.02 [facility] Comment on above: The validity of the calculated GFR & GFRAA in patients over 70 years has not been determined. Clinical correlation is essential. Serum or plasma urea nitroge n measurement (mass/volume)Ordered By: Suman Lowe on 07-04-2023 Urea nitrogen [Mass/Vol] 9 mg/dL 7-18 [facility] Squamous epithelial cells de tection in urine sediment by light microscopyOrdered By: Suman Lowe on 07-04-2023 Epithelial cells.squamous LM Ql (Urine sed) 0-5 SEEN /hpf 5-10 [facility] Thin prep Papanicolaou smear with manual screeningOrdered By: Suman Lowe on 07-04-2023 Thin prep Papanicolaou smear with manual screening 3.9 g/dL 3.2-5.0 [facility] Thin prep Papanicolaou smear with manual screening 24 U/L 15-37 [facility] Comment on above: Moderate Hemolysis, Result may be falsely increased. Thin prep Papanicolaou smear with manual screening 6 5-15 [facility] Urine blood detectionOrdered By: Suman Lowe on 07-04-2023 RBC Ql (U) 150 /ul Negative [facility] Urine clarityOrdered By: Malgorzata Lowe on 07-04-2023 Clarity (U) Clear Clear [facility] Urine color determinationOrd ered By: Suman Lowe on 07-04-2023 Color (U) Yellow Yellow [facility] Urine glucose detectionOrder ed By: Suman Lowe on 07-04-2023 Glucose Ql (U) Normal mg/dl Normal [facility] Urine leukocyte esterase det ection by dipstickOrdered By: Suman Lowe on 07-04-2023 Leukocyte esterase Test strip Ql (U) 25 /ul Negative [facility] Urine pHOrdered By: Suman maya on 07-04-2023 pH (U) 7.0 [pH] 5.0 - 8.0 [facility] Urine sediment bacteria coun t by microscopy (number/high power field)Ordered By: Suman Lowe on 07-04-2023 Bacteria LM.HPF (Urine sed) [#/Area] RARE /hpf None Seen [facility] Urine specific gravity measu rementOrdered By: Suman Lowe on 07-04-2023 Specific gravity (U) [Rel density] 1.010 1.002-1.03 0 [facility] Urine urobilinogen measureme ntOrdered By: Suman Lowe on 07-04-2023 Urobilinogen Ql (U) Normal mg/dl Normal [facility] No Panel InformationOrdered By: Babar Wood on 12-26-2022 Troponin I High Sensitivity 48 pg/mL 3.0-54.0 [facility] Comment on above: Please Note: New Linh t Units and Gender Specific Reference Ranges. For more information see Policy Stat Procedure [place] High Sensitivity Troponin (TNIH) and attachments. Absolute lymphocyte countOrd ered By: Babar Wood on 12-25-2022 Lymphocytes Auto (Unsp spec) [#/Vol] 1.77 10*3/uL 0.83-4.51 [facility] Basophil percentageOrdered B y: Babar Wood on 12-25-2022 Basophils/100 WBC (Bld) 0.6 % 0-1 [facility] Chloride [Moles/Vol] 110 mmol/L 98-107 [facility] Eosinophils/100 WBC (Bld) 1.1 % 0-5 [facility] Glucose [Mass/Vol] 100 mg/dL 74-106 [facility] Comment on above: Fasting Glucose resu lt from 100 to 125 mg/dL suggests IMPAIRED HOMEOSTASIS per A.D.A. criteria. Neutrophils (Bld) [#/Vol] 9.1 10*3/uL 2.0-7.7 [facility] Neutrophils/100 WBC (Bld) 78.0 % 47-70 [facility] Potassium [Moles/Vol] 4.2 mmol/L 3.5-5.1 [facility] Comment on above: Slight Hemolysis, Re sult may be falsely increased. Sodium [Moles/Vol] 140 mmol/L 136-145 [facility] WBC (Bld) [#/Vol] 11.7 10*3/uL 4.4-11.0 [facility] Blood erythrocytes count (nu mber/volume)Ordered By: Babar Wood on 12-25-2022 RBC (Bld) [#/Vol] 4.15 10*6/uL 4.2-5.4 [facility] Blood hemoglobin measurement (mass/volume)Ordered By: Babar Wood on 12-25-2022 Hemoglobin (Bld) [Mass/Vol] 13.1 g/dL 12.0-15.0 [facility] Blood lymphocytes/100 leukoc ytesOrdered By: Babar Wood on 12-25-2022 Lymphocytes/100 WBC (Bld) 15.2 % 19-41 [facility] Blood monocytes/100 leukocyt esOrdered By: Babar Wood on 12-25-2022 Monocytes/100 WBC (Bld) 4.8 % 0-10 [facility] Blood platelet mean volumeOr dered By: Babar Wood on 12-25-2022 Platelet mean volume (Bld) [Entitic vol] 10.7 fL 6.2-12.0 [facility] Determination of erythrocyte mean corpuscular volume (MCV)Ordered By: Babar Wood on 12-25-2022 MCV (RBC) [Entitic vol] 97.3 fL 81-99 [facility] Hematocrit Auto (Bld) [Volum e fraction]Ordered By: Babar Wood on 12-25-2022 Hematocrit (Bld) [Volume fraction] 40.4 % 37-47 [facility] INR in Blood by Coagulation assayOrdered By: Babar Wood on 12-25-2022 INR Coag (Bld) [Relative time] 1.1 {INR} [facility] Laboratory - Chemistry and C hemistry - challengeOrdered By: Babar Wood on 12-25-2022 CO2 [Moles/Vol] 24.0 mmol/L 21.0-32.0 [facility] Magnesium [Mass/Vol] 2.0 mg/dL 1.6-2.6 [facility] Comment on above: Slight Hemolysis, Re sult may be falsely increased. Urea nitrogen/Creatinine [Mass ratio] 13.0 mg/mg 10-20 [facility] Laboratory - CoagulationOrde red By: Babar Wood on 12-25-2022 aPTT Coag (Bld) [Time] 33.7 s 24.1-36.2 [facility] PT Coag (PPP) [Time] 14.1 s 11.7-14.9 [facility] Laboratory - Hematology and Cell countsOrdered By: Babar Wood on 12-25-2022 Erythrocyte distribution width (RBC) [Entitic vol] 48.4 fL 35.1-43.9 [facility] Erythrocyte distribution width (RBC) [Ratio] 13.5 % 11.6-14.6 [facility] Immature granulocytes/100 WBC (Bld) 0.300 % 0.0-0.9 [facility] Comment on above: IG% - Immature Granu locytes (promyelocytes, myelocytes and metamyelocytes) > 1% indicates that a LEFT SHIFT is Present. MCH (RBC) [Entitic mass] 31.6 pg 27.0-32.0 [facility] Nucleated RBC/100 WBC (Bld) [Ratio] 0 % 0-5 [facility] MCHC Auto (RBC) [Mass/Vol]Or dered By: Babar Wood on 12-25-2022 MCHC (RBC) [Mass/Vol] 32.4 g/dL 32-36 [facility] No Panel InformationOrdered By: Babar Wood on 12-25-2022 D-Dimer Quantitative (PE/DVT) 0.65 FEU/ug/m 0.27-0.49 [facility] Comment on above: CRITICAL VALUE VERIF IED. CALLED TO LUANA GARCIA RN ER12/25/22 5239 [facility].RESULTS READ BACK BY SAME . D-Dimer ELEVATED (>0.49): Additional studies and clinicalassessments are indicated to conclude diagnosis of:Deep Vein Thrombosis (DVT) or Pulmonary Embolism (PE) Estimated Creatinine Clearance Calc 62.64 ml/min [facility] Estimated GFR (MDRD) Amer 78 mL/min >60 [facility] Comment on above: GFR Calc Estimated GFR (MDRD) Non-Af Amer 64 mL/min >60 [facility] Comment on above: Non- GFR Calc Platelets bldOrdered By: Sarath Wood on 12-25-2022 Platelets (Bld) [#/Vol] 271 10*3/uL 150-450 [facility] Serum or plasma calcium leslie urement (mass/volume)Ordered By: Babar Wood on 12-25-2022 Calcium [Mass/Vol] 8.9 mg/dL 8.5-10.1 [facility] Serum or plasma creatinine m easurement (mass/volume)Ordered By: Babar Wood on 12-25-2022 Creatinine [Mass/Vol] 1.00 mg/dL 0.55-1.02 [facility] Comment on above: The validity of the calculated GFR & GFRAA in patients over 70 years has not been determined. Clinical correlation is essential. Serum or plasma urea nitroge n measurement (mass/volume)Ordered By: Babar Wood on 12-25-2022 Urea nitrogen [Mass/Vol] 13 mg/dL 7-18 [facility] Thin prep Papanicolaou smear with manual screeningOrdered By: Babar Wood on 12-25-2022 Thin prep Papanicolaou smear with manual screening 6 5-15 [facility] No Panel Informationon 12-17 Troponin I High Sensitivity 41 pg/mL 3.0-54.0 [facility] Work Phone: Comment on above: Please Note: New Linh t Units and Gender Specific Reference Ranges. For more information see Policy Stat Procedure [place] High Sensitivity Troponin (TNIH) and attachments. Absolute lymphocyte counton 12-16-2021 Lymphocytes Auto (Unsp spec) [#/Vol] 0.93 10*3/uL 0.83-4.51 [facility] Work Phone: Basophil percentageon 2021 Basophils/100 WBC (Bld) 0.7 % 0-1 [facility] Work Phone: Chloride [Moles/Vol] 108 mmol/L 98-107 [facility] Work Phone: Eosinophils/100 WBC (Bld) 1.2 % 0-5 [facility] Work Phone: [phone] Glucose [Mass/Vol] 114 mg/dL 74-106 [facility] Work Phone: Comment on above: Fasting Glucose resu lt from 100 to 125 mg/dL suggests IMPAIRED HOMEOSTASIS per A.D.A. criteria. Neutrophils (Bld) [#/Vol] 8.7 10*3/uL 2.0-7.7 [facility] Work Phone: Neutrophils/100 WBC (Bld) 78.7 % 47-70 [facility] Work Phone: Potassium [Moles/Vol] 4.2 mmol/L 3.5-5.1 [facility] Work Phone: Comment on above: Moderate Hemolysis, Result may be falsely increased. Sodium [Moles/Vol] 138 mmol/L 136-145 [facility] Work Phone: WBC (Bld) [#/Vol] 11.1 10*3/uL 4.4-11.0 [facility] Work Phone: [phone] Blood erythrocytes count (nu mber/volume)on 12-16-2021 RBC (Bld) [#/Vol] 4.49 10*6/uL 4.2-5.4 [facility] Work [phone] Blood hemoglobin measurement (mass/volume)on 12-16-2021 Hemoglobin (Bld) [Mass/Vol] 14.4 g/dL 12.0-15.0 [facility] Work Phone: [phone] Blood lymphocytes/100 leukoc yteson 12-16-2021 Lymphocytes/100 WBC (Bld) 8.4 % 19-41 [facility] Work Phone: [phone] Blood monocytes/100 leukocyt eson 12-16-2021 Monocytes/100 WBC (Bld) 10.1 % 0-10 [facility] Work Phone: Blood platelet mean volumeon 12-16-2021 Platelet mean volume (Bld) [Entitic vol] 11.5 fL 6.2-12.0 [facility] Work Phone: Determination of erythrocyte mean corpuscular volume (MCV)on 12-16-2021 MCV (RBC) [Entitic vol] 97.1 fL 81-99 [facility] Work Phone: [phone] Hematocrit Auto (Bld) [Volum e fraction]on 12-16-2021 Hematocrit (Bld) [Volume fraction] 43.6 % 37-47 [facility] Work Phone: [phone] Laboratory - Chemistry and C hemistry - challengeon 12-16-2021 CO2 [Moles/Vol] 24.0 mmol/L 21.0-32.0 [facility] Work Phone: Urea nitrogen/Creatinine [Mass ratio] 17.6 mg/mg 10-20 [facility] Work Phone: [phone] Laboratory - Hematology and Cell countson 12-16-2021 Erythrocyte distribution width (RBC) [Entitic vol] 46.6 fL 35.1-43.9 [facility] Work Phone: [phone] Erythrocyte distribution width (RBC) [Ratio] 13.0 % 11.6-14.6 [facility] Work Phone: [phone] Immature granulocytes/100 WBC (Bld) 0.900 % 0.0-0.9 [facility] Work Phone: [phone] Comment on above: IG% - Immature Granu locytes (promyelocytes, myelocytes and metamyelocytes) > 1% indicates that a LEFT SHIFT is Present. MCH (RBC) [Entitic mass] 32.1 pg 27.0-32.0 [facility] Work Phone: [phone] Nucleated RBC/100 WBC (Bld) [Ratio] 0 % 0-5 [facility] Work Phone: [phone] MCHC Auto (RBC) [Mass/Vol]on 12-16-2021 MCHC (RBC) [Mass/Vol] 33.0 g/dL 32-36 [facility] Work Phone: [phone] Panel Informationon 12-16 Estimated Creatinine Clearance Calc 74.45 ml/min [facility] Work Phone: [phone] Estimated GFR (MDRD) Amer 94 mL/min >60 [facility] Work Phone: [phone] Comment on above: GFR Calc Estimated GFR (MDRD) Non-Af Amer 77 mL/min >60 [facility] Work Phone: [phone] Comment on above: Non- GFR Calc Platelets bldon 12-16-2021 Platelets (Bld) [#/Vol] 227 10*3/uL 150-450 [facility] Work Phone: [phone] Serum or plasma calcium leslie urement (mass/volume)on 12-16-2021 Calcium [Mass/Vol] 9.5 mg/dL 8.5-10.1 [facility] Work Phone: [phone] Serum or plasma creatinine m easurement (mass/volume)on 12-16-2021 Creatinine [Mass/Vol] 0.85 mg/dL 0.55-1.02 [facility] Work Phone: Comment on above: The validity of the calculated GFR & GFRAA in patients over 70 years has not been determined. Clinical correlation is essential. Serum or plasma urea nitroge n measurement (mass/volume)on 12-16-2021 Urea nitrogen [Mass/Vol] 15 mg/dL 7-18 [facility] Work Phone: Thin prep Papanicolaou smear with manual screeningon 12-16-2021 Thin prep Papanicolaou smear with manual screening 6 5-15 [facility] Work Phone: CNDSon 04-27-2021 CNDS HNO ID: [id number] Author: Aj Mullins MD Service: Hospital Medicine [...] Attending Provider: Aj Mullins MD Primary Service: [place] [address] REASON FOR HOSPITALIZATION: Chest pain SOB Acute [...] patient was then transferred and admitted to [facility] for further evaluation and management Lasix [...] not cleared for the discharge by the metal crafts teacher Pt. Left the hospital in the evening [...] Ativan [Lorazepam] Vomiting - Azithromycin Intolerance - [place] Anaphylaxis - Fish Anaphylaxis - Levofloxacin In [...] Normal, Disp (more content not included)... Normal [facility] Basic Metabolic Panlon 04-26 Anion gap [Moles/Vol] 12 mmol/L Normal 9-18 [facility] Comment on above: Performed By: #### B BRITT LIPB, CBC ####[place] [id number] [place], [place] [phone] Calcium [Mass/Vol] 9.0 mg/dL Normal 8.5-10.5 [facility] Comment on above: Performed By: #### B BRITT LIPB, CBC ####[facility] [place], [place] [phone] Chloride [Moles/Vol] 103 mmol/L Normal 98-110 [facility] Comment on above: Performed By: #### B BRITT, LIPB, CBC ####[address] [phone] CO2 [Moles/Vol] 21 mmol/L Low 23-32 [facility] Comment on above: Performed By: #### B FRANKLIN DE LA TORRE, CBC ####[place] [phone] Creatinine [Mass/Vol] 0.73 mg/dL Normal 0.70-1.40 [facility] Comment on above: Performed By: #### B FRANKLIN DE LA TORRE, CBC ####[place] [phone] eGFR- Amer. >60 Normal >59 [facility] Comment on above: Performed By: #### B FRANKLIN DE LA TORRE, CBC ####[place] [phone] eGFR-All Other Races >60 Normal >59 [facility] Comment on above: Result Comment: eGFR [...] #### B FRANKLIN DE LA TORRE, CBC ####[place] [phone] Glucose [Mass/Vol] 87 mg/dL Normal 65-100 [facility] Comment on above: Performed By: #### B FRANKLIN DE LA TORRE, CBC ####[address] [phone] Potassium [Moles/Vol] 3.7 mmol/L Normal 3.5-5.0 [facility] Comment on above: Performed By: #### B MP, LIPB, CBC ####[place] [phone] Sodium [Moles/Vol] 136 mmol/L Normal 132-148 [facility] Comment on above: Performed By: #### B MP, LIPB, CBC ####[place] [phone] Urea nitrogen [Mass/Vol] 11 mg/dL Normal 8-25 [facility] Comment on above: Performed By: #### B MP, LIPB, CBC ####[place] [phone] CBCon 04-26-2021 Absolute nRBC <0.01 Normal <0.01 [facility] Comment on above: Performed By: #### B MP, LIPB, CBC ####[place] [phone] Erythrocyte distribution width (RBC) [Ratio] 13.3 % Normal 11.5-15.0 [facility] Comment on above: Performed By: #### B MP, LIPB, CBC ####[place] [phone] Hematocrit (Bld) [Volume fraction] 38.6 % Normal 36.0-46.0 [facility] Comment on above: Performed By: #### B MP, LIPB, CBC ####[place] [phone] Hemoglobin (Bld) [Mass/Vol] 12.5 g/dL Normal 11.5-15.5 [facility] Comment on above: Performed By: #### B MP, LIPB, CBC ####[place] [phone] MCH 31.2 pG Normal 26.0-34.0 [facility] Comment on above: Performed By: #### B MP, LIPB, CBC ####[place] [phone] MCHC (RBC) [Mass/Vol] 32.4 g/dL Normal 30.5-36.0 [facility] Comment on above: Performed By: #### B MP, LIPB, CBC ####[place] [phone] MCV (RBC) [Entitic vol] 96.3 fL Normal 80.0-100.0 [facility] Comment on above: Performed By: #### B MP, LIPB, CBC ####[place] [phone] Platelet mean volume (Bld) [Entitic vol] 11.7 fL Normal 9.0-12.7 [facility] Comment on above: Performed By: #### B MP, LIPB, CBC ####[place] [phone] Platelets (Bld) [#/Vol] 209 10*3/uL Normal 150-400 [facility] Comment on above: Performed By: #### B MP, LIPB, CBC ####[place] [phone] RBC (Bld) [#/Vol] 4.01 10*6/uL Normal 3.90-5.20 [facility] Comment on above: Performed By: #### B MP, LIPB, CBC ####[place] [phone] WBC (Bld) [#/Vol] 7.40 10*3/uL Normal 3.70-11.00 [facility] Comment on above: Performed By: #### B MP, LIPB, CBC ####[place] [phone] CK, Total and CKMBon 022 CK [Catalytic activity/Vol] 50 U/L Normal 30-220 [facility] Comment on above: Performed By: #### C KCKMB, SAULO #### [facility] [address] [place] [phone] CK MB % CK MB % not reported with CK <100 U/L. Normal 0.0-4.0 [facility] Comment on above: Performed By: #### C KCKMB, SAULO #### [facility] [address] [place] [phone] MB 3.6 ng/mL Normal 0.0-8.8 [facility] Comment on above: Performed By: #### C KCKMB, SAULO #### [facility] [address] [place] [address] CONSULTon 04-26-2021 CONSULT HNO ID: [id number] Author: Tyrel Lane MD Service: Electrophysiology Author [...] be no charge for this consultation. Normal [facility] CONSULT PROGon 04-26-2021 CONSULT PROG HNO ID: [id number] Author: Gavino Zaragoza MD Service: Cardiovascular Medicine [...] CC echocardiographic exam performed on 01/18/2017 ([facility], [facility]). CTPE 04/25/2021: IMPRESSION: 1. 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 Zaragoza SIGNATURE: Francisco Erickson APRN.[employer] PATIENT NAME: Michelle Mitchell DATE: April 26, 2021 TIME: 2:38 PM PAGER/CONTACT #: [phone] For communication after 5 pm on weekdays and after 12 pm on weekends, please page the following: - [facility] consult : page [phone] - [facility] consult: page [phone] - [facility] Cardiology consult: page [phone] [facility] STAFF PHYSICIAN NOTE OF PERSONAL INVOLVE (more content not included)... Normal [facility] Lipid Panel, [place] 022 Cholesterol [Mass/Vol] 149 mg/dL Normal <200 [facility] Comment on above: Performed By: #### B MP, LIPB, CBC ####[place] [address] Cholesterol in HDL [Mass/Vol] 31 mg/dL Low >39 [facility] Comment on above: Performed By: #### B MP, LIPB, CBC ####[place] [address] Cholesterol in LDL [Mass/Vol] 102 mg/dL High <100 [facility] Comment on above: Performed By: #### B MP, LIPB, CBC ####[place] [address] LDL:HDL Ratio 3.29 High <2.54 [facility] Comment on above: Performed By: #### B MP, LIPB, CBC ####[place] [address] Non HDL Cholesterol 118 mg/dL Normal <130 [facility] Comment on above: Performed By: #### B MP, LIPB, CBC ####[place] [phone] TC:HDL Ratio 4.81 Normal <5.10 [facility] Comment on above: Performed By: #### B MP, LIPB, CBC ####[place] [address] Triglyceride [Mass/Vol] 82 mg/dL Normal <150 [facility] Comment on above: Performed By: #### B MP, LIPB, CBC ####[facility] [place], [place] [phone] VLDL Cholesterol 16 mg/dL Normal <30 [facility] Comment on above: Performed By: #### B FRANKLIN DE LA TORRE, CBC ####[place] [phone] [place], [place] [phone] NURSING PROGon 04-26-2021 NURSING PROG HNO ID: [id number] Author: Vance Everett RN Service: ? Author Type: Registered Nurse Type: Nursing Progress Note Filed: 04/26/2021 8:46 PM Note Text: Nursing Progress Note Patient Name: Michelle Mitchell Patient Location: [id number]/[facility]10-13 Daily Note: 1935 - Michelle Mitchell, 5 pav 558-2, pt complaining of 8/10 chest pain, states no relief from tylenol. Requesting alternative. Dontrell Mclaughlin [phone] - Michelle Mitchell, 5 pav 558-2, pt states son in car accident, patient leaving AMA when able to pick her up. Dontrell Mclaughlin [phone] - Michelle Mitchell, 5 pav 558-2 pt asking if she can have script for Lasix prior to leaving to be compliant with treatment. Thanks -[place] [phone] This note was completed by: Vance Everett [facility] NURSING PROG HNO ID: [id number] Author: Kendal Strange RN Service: ? Author Type: Registered Nurse Type: Nursing Progress Note Filed: 04/26/2021 4:23 PM Note Text: Nursing Progress Note Patient Name: Michelle Mitchell Patient [facility] [id number][facility] 928 Pt sitting up in bed, c/o [...] pt that we could [facility]. Attempting to provide everything the pt needs. This note was completed by: Kendal Strange Normal [facility] Troponin Ton 04-26-2021 Troponin T.cardiac [Mass/Vol] 0.023 ug/L Normal 0.000-0.02 9 [facility] Comment on above: Performed By: #### C KCKMB, SAULO #### [facility] [address] [place] [address] CBC and Differentialon 04-25 Abs Baso 0.06 k/uL Normal <0.11 [facility] Comment on above: Performed By: #### T NT, CBCDIF, CMP ####[place] [address] Abs Upson 0.72 k/uL Normal <0.87 [facility] Comment on above: Performed By: #### T NT, CBCDIF, CMP ####[place] [address] Abs Neut 7.11 k/uL Normal 1.45-7.50 [facility] Comment on above: Performed By: #### T NT, CBCDIF, CMP ####[place] [address] Absolute nRBC <0.01 Normal <0.01 [facility] Comment on above: Performed By: #### T NT, CBCDIF, CMP ####[place] [address] Basophils/100 WBC (Bld) 0.6 % Normal [facility] Comment on above: Performed By: #### T NT, CBCDIF, CMP ####[place] [address] DTYPE Auto Diff Normal [facility] Comment on above: Performed By: #### T NT, CBCDIF, CMP ####[place] [address] Eosinophils (Bld) [#/Vol] 0.10 10*3/uL Normal <0.46 [facility] Comment on above: Performed By: #### T NT, CBCDIF, CMP ####[place] [address] Eosinophils/100 WBC (Bld) 1.0 % Normal [facility] Comment on above: Performed By: #### T NT, CBCDIF, CMP ####[place] [address] Erythrocyte distribution width (RBC) [Ratio] 13.5 % Normal 11.5-15.0 [facility] Comment on above: Performed By: #### T NT, CBCDIF, CMP ####[place] [phone] Hematocrit (Bld) [Volume fraction] 38.0 % Normal 36.0-46.0 [facility] Comment on above: Performed By: #### T NT, CBCDIF, CMP ####[place] [phone] Hemoglobin (Bld) [Mass/Vol] 11.9 g/dL Normal 11.5-15.5 [facility] Comment on above: Performed By: #### T NT, CBCDIF, CMP ####[phone] Lymphocytes (Bld) [#/Vol] 1.73 10*3/uL Normal 1.00-4.00 [facility] Comment on above: Performed By: #### T NT, CBCDIF, CMP ####[phone] Lymphocytes/100 WBC (Bld) 17.8 % Normal [facility] Comment on above: Performed By: #### T NT, CBCDIF, CMP ####[phone] MCH 30.7 pG Normal 26.0-34.0 [facility] Comment on above: Performed By: #### T NT, CBCDIF, CMP ####[phone] MCHC (RBC) [Mass/Vol] 31.3 g/dL Normal 30.5-36.0 [facility] Comment on above: Performed By: #### T NT, CBCDIF, CMP ####[place] [phone] MCV (RBC) [Entitic vol] 98.2 fL Normal 80.0-100.0 [facility] Comment on above: Performed By: #### T NT, CBCDIF, CMP ####[place] [phone] Monocytes/100 WBC (Bld) 7.4 % Normal [facility] Comment on above: Performed By: #### T NT, CBCDIF, CMP ####[place] [phone] Neutrophils/100 WBC (Bld) 73.2 % Normal [facility] Comment on above: Performed By: #### T NT, CBCDIF, CMP ####[place] [phone] NRBCs 0.0 /100 WBC Normal 0 [facility] Comment on above: Performed By: #### T NT, CBCDIF, CMP ####[place] [phone] Platelet mean volume (Bld) [Entitic vol] 12.5 fL Normal 9.0-12.7 [facility] Comment on above: Performed By: #### T NT, CBCDIF, CMP ####[place] [phone] Platelets (Bld) [#/Vol] 192 10*3/uL Normal 150-400 [facility] Comment on above: Performed By: #### T NT, CBCDIF, CMP ####[place] [phone] RBC (Bld) [#/Vol] 3.87 10*6/uL Low 3.90-5.20 [facility] Comment on above: Performed By: #### T NT, CBCDIF, CMP ####[place] [phone] WBC (Bld) [#/Vol] 9.72 10*3/uL Normal 3.70-11.00 [facility] Comment on above: Performed By: #### T NT, CBCDIF, CMP ####[place] [phone] CK, Total and CKMBon 022 CK [Catalytic activity/Vol] 65 U/L Normal 30-220 [facility] Comment on above: Performed By: #### T NT, CKCKMB ####[address] [phone] CK MB % CK MB % not reported with CK <100 U/L. Normal 0.0-4.0 [facility] Comment on above: Performed By: #### T NT, CKCKMB ####[address] [phone] MB 3.5 ng/mL Normal 0.0-8.8 [facility] Comment on above: Performed By: #### T NT, CKCKMB ####[place] [address] [place], [place] [phone] CONSULTon 04-25-2021 CONSULT HNO ID: [id number] Author: Gavino Zaragoza MD Service: Cardiovascular Medicine Author Type: Physician Type: Consults Filed: 04/25/2021 6:10 PM Note Text: [facility]ARD[facility]IC[facility] CONSULT NOTE (Template ID [id number]) Michelle Mitchell [id number] PRIMARY SERVICE: Internal Medicine CONSULTING SERVICE: Cardiovascular [...] had fluid in her lungs. In the [facility] noted marginally elevated high sensitivity troponin, concerns for NSTEMI, therefore was transferred to [facility] for further evaluation of symptoms. 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 Developed [...] PERMANENT TRANSVENOUS PACEMAKER INSERTION 2006 ICD implant, [facility] - ANESTHESIA TUBAL LIGATION/TRANSECTION - APPENDECTOMY [...] mL (BD (more content not included)... Normal [facility] Comp Metabolic Panelon 04-25 Albumin [Mass/Vol] 4.1 g/dL Normal 3.5-5.0 [facility] Comment on above: Performed By: #### T NT, CBCDIF, CMP ####[place] [id number] [place], [place] [phone] ALP [Catalytic activity/Vol] 131 U/L High 34-123 [facility] Comment on above: Performed By: #### T NT, CBCDIF, CMP ####[place] [phone] ALT [Catalytic activity/Vol] 30 U/L Normal 0-45 [facility] Comment on above: Performed By: #### T NT, CBCDIF, CMP ####[place] [phone] Anion gap [Moles/Vol] 12 mmol/L Normal 9-18 [facility] Comment on above: Performed By: #### T NT, CBCDIF, CMP ####[place] [phone] AST [Catalytic activity/Vol] 26 U/L Normal 7-40 [facility] Comment on above: Performed By: #### T NT, CBCDIF, CMP ####[place] [phone] Bilirubin [Mass/Vol] 1.0 mg/dL Normal 0.2-1.3 [facility] Comment on above: Performed By: #### T NT, CBCDIF, CMP ####[place] [phone] Calcium [Mass/Vol] 9.1 mg/dL Normal 8.5-10.5 [facility] Comment on above: Performed By: #### T NT, CBCDIF, CMP ####[place] [phone] Chloride [Moles/Vol] 103 mmol/L Normal 98-110 [facility] Comment on above: Performed By: #### T NT, CBCDIF, CMP ####[place] [phone] CO2 [Moles/Vol] 23 mmol/L Normal 23-32 [facility] Comment on above: Performed By: #### T NT, CBCDIF, CMP ####[place] [phone] Creatinine [Mass/Vol] 0.71 mg/dL Normal 0.70-1.40 [facility] Comment on above: Performed By: #### T NT, CBCDIF, CMP ####[address] [phone] eGFR- Amer. >60 Normal >59 [facility] Comment on above: Performed By: #### T NT, CBCDIF, CMP ####[address] [phone] eGFR-All Other Races >60 Normal >59 [facility] Comment on above: Result Comment: eGFR [...] Performed By: #### T NT, CBCDIF, CMP ####[place] [phone] Glucose [Mass/Vol] 92 mg/dL Normal 65-100 [facility] Comment on above: Performed By: #### T NT, CBCDIF, CMP ####[place] [phone] Potassium [Moles/Vol] 3.7 mmol/L Normal 3.5-5.0 [facility] Comment on above: Performed By: #### T NT, CBCDIF, CMP ####[place] [phone] Protein [Mass/Vol] 6.6 g/dL Normal 6.0-8.4 [facility] Comment on above: Performed By: #### T NT, CBCDIF, CMP ####[facility] [place], [place] [phone] Sodium [Moles/Vol] 138 mmol/L Normal 132-148 [facility] Comment on above: Performed By: #### T NT, CBCDIF, CMP ####[facility] [place], [place] [phone] Urea nitrogen [Mass/Vol] 4 mg/dL Low 8-25 [facility] Comment on above: Performed By: #### T NT, CBCDIF, CMP ####[facility] [place], [place] [phone] HISTORY PHYSICALon HISTORY PHYSICAL HNO ID: [id number] Author: Aj Mullins MD Service: Hospital Medicine [...] hotness, chills, and diarrhea. She works in [employer]. She used to be a smoker of [...] patient was then transferred and admitted to [facility] for further evaluation and management. PAST [...] Date - ANES PERMANENT TRANSVENOUS PACEMAKER INSERTION Feb. 2007 ICD implant, [facility] - ANESTHESIA TUBAL LIGATION/TRANSECTION - APPENDECTOMY [...] Reported HOCM, (more content not included)... Normal [facility] Hemoglobin A1con 04-25-2021 Glucose [Mass/Vol] 103 mg/dL Normal [facility] Comment on above: Result Comment: eAG: (Estimated average glucose) is a calculated value from HgbA1c and is hr representative of the average blood glucose level in the last 2-3 month period. Performed By: #### T SH #### [facility] [address] [place] [address] #### HBA1C #### [facility] [address] [place], [place] [address] HbA1c (Bld) [Mass fraction] 5.2 % Normal 4.3-5.6 [facility] Comment on above: Result Comment: Amer ican Diabetes Association guidelines indicate that patients with HgbA1c in the range 5.7-6.4% are at increased risk for development of diabetes, and intervention by lifestyle modification may be beneficial. HgbA1c greater or equal to 6.5% is considered diagnostic of diabetes. Performed By: #### T SH #### [place] [address] #### HBA1C #### [facility] [address] [place], [place] [address] NT Pro BNPon 04-25-2021 PRO B Natr Peptide 1979 pg/mL High <125 [facility] Comment on above: Performed By: #### N TBNP #### [place] [address] NURSING PROGon 04-25-2021 NURSING PROG HNO ID: [id number] Author: Vance Everett RN Service: ? Author Type: Registered Nurse Type: Nursing Progress Note Filed: 04/25/2021 9:39 PM Note Text: Nursing Progress Note Patient Name: Michelle Mitchell Patient Location: [place] [address]/[place] [address] 10-13 Daily Note: paged hospitalist Michelle Mitchell, 5 -2, pt requesting something stronger for pain than Tylenol. Per pt, Susanna withheld morphine d/t low BP, now 115/60. Thanks -Devonte [phone] Resident requested attempting another dose of tylenol instead of an alternative, and to page back if tylenol ineffective. Tylenol administered. 2127 Michelle Mitchell, 5 8-2, pt given Tylenol an hour ago, still no pain relief, 11/21 per patient. Patient requesting alternative pain medication. Thanks -Devonte [phone] This note was completed by: Vance Everett [facility] NURSING PROG HNO ID: [id number] Author: Kendal Strange RN Service: ? Author [...] [place] and it helped my pain a lot. Dr. Mullins educated pt regarding tests that were ordered or completed and that she is not ordering Morphine due to blood pressure being low and Tylenol will be ordered. 1320 Pt started sobbing once Dr. Mullins left the room and advised her that she was not ordering Morphine. This note was completed by: Kendal Thibodeaux [facility] NURSING PROG HNO ID: [id number] Author: Sabrina Barbosa RN Service: ? Author Type: Registered Nurse Type: Nursing Progress Note Filed: 04/25/2021 6:53 AM Note Text: Nursing Progress Note Patient Name: Michelle Mitchell Patient Location: /10-13 Daily Note: Paged hospitalist admit pager 5PAV [phone] Michelle Mitchell. Pt is c/o 8/10 chest/jaw pain. can she get something? thanks, rose ext [phone] Prn nitro was ordered, pt refused. States it does not help her and will give her a migraine and make her feel worse. Pt did receive morphine at [facility] and stated that it helped with her pain then. Morphine is listed on allergy list but she states that it's not a true allergy. Paged hospitalist admit pager 5PAV rm [phone] Michelle Mitchell. Pt refusing nitro, had morphine at [facility] says it helped and isn't a true allergy. Rose ext [phone] This note was completed by: [facility] NURSING PROG HNO ID: [id number] Author: Sabrina Barbosa RN Service: ? Author Type: Registered Nurse Type: Nursing Progress Note Filed: 04/25/2021 6:00 AM Note Text: Nursing Progress Note Patient Name: Michelle Mitchell Patient Location: [place] [address] [address] 10-13 Transfer Note: Patient transferred into room/unit 558-2 in stable condition. Actions taken: No futher actions taken at this time. Will continue to monitor and check with patient. This note was completed by: [facility] TSHon 04-25-2021 TSH Qn 3.510 m[IU]/L Normal 0.270-4.20 0 [facility] Comment on above: Result Comment: If [...] Recio, et al. 2017 Guidelines of the [place] Thyroid Association for the Diagnosis and Management of Thyroid Disease during and the . Thyroid, 2017:27:3:315-389. Performed By: #### T SH #### [place] [phone] #### HBA1C #### [facility] [address] [place] [phone] Troponin Ton 04-25-2021 Troponin T.cardiac [Mass/Vol] 0.028 ug/L Normal 0.000-0.[address] [place] [address] Comment on above: Performed By: #### T NT #### [place] [phone] Troponin T.cardiac [Mass/Vol] 0.026 ug/L Normal 0.000-0.[address] [place] [address] Comment on above: Performed By: #### T NT ####[place] [phone] Troponin T.cardiac [Mass/Vol] 0.029 ug/L Normal 0.000-0.[address] [place] [address] Comment on above: Performed By: #### T NT, CKCKMB ####[phone] Troponin T.cardiac [Mass/Vol] 0.028 ug/L Normal 0.000-0.[address] [place] [address] Comment on above: Performed By: #### T NT, CBCDIF, CMP ####[place] [phone] XR ANKLE 3V AP/LAT/OBL RTon 11-04-2020 XR [...] No dislocation or acute fracture lucency detected. Manager Of Clinical: KIM Transcribe Date/Time: Nov 04 2020 1:46A Dictated by : SHAKIRA LOVETT MD This examination was interpreted and the report reviewed and electronically signed by: SHAKIRA LOVETT MD on Nov 04 2020 1:47AM EST [id number] Normal [facility] Bacteria Bld Culton 09-19-19 Bacteria identified Cx Nom (Bld) CULTURE, BLOOD: No growth 5 days Normal [facility] Comment on above: Performed By: #### 6 00-7 #### [facility] CLIA [id number] [address] [place] [address] Bacteria identified Cx Nom (Bld) CULTURE, BLOOD: No growth 5 days Normal [facility] Comment on above: Performed By: #### 6 00-7 #### [facility] CLIA [id number] [address] [place] [address] CBC W Auto Differential pane l (Bld)on 09-18-2020 Basophils (Bld) [#/Vol] 0.03 10*3/uL Normal <0.11 [facility] Comment on above: Order Comment: Speci men Type: BLOOD SPECIMEN Performed By: #### 2 4323-8 #### [facility] CLIA [id number] [address] [place] [address] [place] Basophils/100 WBC (Bld) 0.3 % Normal [facility] Comment on above: Order Comment: Speci men Type: BLOOD SPECIMEN Performed By: #### 2 4323-8 #### [facility] CLIA [id number] [address] [place] [address] [place] Differential cell count method Nom (Bld) Auto Normal [facility] Comment on above: Order Comment: Speci men Type: BLOOD SPECIMEN Performed By: #### 2 4323-8 #### [facility] CLIA [id number] [address] [place] [address] [facility] Eosinophils (Bld) [#/Vol] 0.06 10*3/uL Normal <0.46 [facility] Comment on above: Order Comment: Speci men Type: BLOOD SPECIMEN Performed By: #### 2 4323-8 #### [facility] CLIA [id number] [address] [place] [address] [facility] Eosinophils/100 WBC (Bld) 0.7 % Normal [facility] Comment on above: Order Comment: Speci men Type: BLOOD SPECIMEN Performed By: #### 2 4323-8 #### [facility] CLIA [id number] [address] [place] [address] [facility] Erythrocyte distribution width (RBC) [Ratio] 13.2 % Normal 11.5-15.0 [facility] Comment on above: Order Comment: Speci men Type: BLOOD SPECIMEN Performed By: #### 2 4323-8 #### [facility] CLIA [id number] [address] [place] [address] [facility] Hematocrit (Bld) [Volume fraction] 42.4 % Normal 36.0-46.0 [facility] Comment on above: Order Comment: Speci men Type: BLOOD SPECIMEN Performed By: #### 2 4323-8 #### [facility] CLIA [id number] [address] [place] [address] [place] Hemoglobin (Bld) [Mass/Vol] 13.9 g/dL Normal 11.5-15.5 [facility] Comment on above: Order Comment: Speci men Type: BLOOD SPECIMEN Performed By: #### 2 4323-8 #### [facility] CLIA [id number] [address] [place] [address] [place] Lymphocytes (Bld) [#/Vol] 0.53 10*3/uL Low 1.00-4.00 [facility] Comment on above: Order Comment: Speci men Type: BLOOD SPECIMEN Performed By: #### 2 4323-8 #### [facility] CLIA [id number] [address] [place] [address] [facility] Lymphocytes/100 WBC (Bld) 6.1 % Normal [facility] Comment on above: Order Comment: Speci men Type: BLOOD SPECIMEN Performed By: #### 2 4323-8 #### [facility] CLIA [id number] [address] [facility] [address] [facility] MCH (RBC) [Entitic mass] 30.8 pg Normal 26.0-34.0 [facility] Comment on above: Order Comment: Speci men Type: BLOOD SPECIMEN Performed By: #### 2 4323-8 #### [facility] CLIA [id number] [address] [place] [address] [place] MCHC (RBC) [Mass/Vol] 32.8 g/dL Normal 30.5-36.0 [facility] Comment on above: Order Comment: Speci men Type: BLOOD SPECIMEN Performed By: #### 2 4323-8 #### [facility] CLIA [id number] [address] [place] [address] [facility] MCV (RBC) [Entitic vol] 93.8 fL Normal 80.0-100.0 [place] Comment on above: Order Comment: Speci men Type: BLOOD SPECIMEN Performed By: #### 2 4323-8 #### [facility] CLIA [id number] [address] [place] [address] [place] Monocytes (Bld) [#/Vol] 0.73 10*3/uL Normal <0.87 [facility] Comment on above: Order Comment: Speci men Type: BLOOD SPECIMEN Performed By: #### 2 4323-8 #### [facility] CLIA [id number] [address] [place] [address] [facility] Monocytes/100 WBC (Bld) 8.4 % Normal [place] Comment on above: Order Comment: Speci men Type: BLOOD SPECIMEN Performed By: #### 2 4323-8 #### [facility] CLIA [id number] [address] [facility] [place] [address] [place] Neutrophils (Bld) [#/Vol] 7.34 10*3/uL Normal 1.45-7.50 [facility] Comment on above: Order Comment: Speci men Type: BLOOD SPECIMEN Performed By: #### 2 4323-8 #### [facility] CLIA [id number] [address] [facility] [place] [address] [place] Neutrophils/100 WBC (Bld) 84.5 % Normal [facility] Comment on above: Order Comment: Speci men Type: BLOOD SPECIMEN Performed By: #### 2 4323-8 #### [facility] CLIA [id number] [address] [facility] [place] [address] [place] Platelet mean volume (Bld) [Entitic vol] 11.3 fL Normal 9.0-12.7 [facility] Comment on above: Order Comment: Speci men Type: BLOOD SPECIMEN Performed By: #### 2 4323-8 #### [facility] CLIA [id number] [address] [facility] [place] [address] [place] Platelets (Bld) [#/Vol] 240 10*3/uL Normal 150-400 [facility] Comment on above: Order Comment: Speci men Type: BLOOD SPECIMEN Performed By: #### 2 4323-8 #### [facility] CLIA [id number] [address] [facility] [place] [address] [place] RBC (Bld) [#/Vol] 4.52 10*6/uL Normal 3.90-5.20 [facility] Comment on above: Order Comment: Speci men Type: BLOOD SPECIMEN Performed By: #### 2 4323-8 #### [facility] CLIA [id number] [address] [facility] [place] [address] [place] WBC (Bld) [#/Vol] 8.69 10*3/uL Normal 3.70-11.00 [facility] Comment on above: Order Comment: Speci men Type: BLOOD SPECIMEN Performed By: #### 2 4323-8 #### [facility] CLIA [id number] [address] [facility] [place] [address] [facility] Comprehensive metabolic 2000 panelon 09-18-2020 Albumin [Mass/Vol] 4.6 g/dL Normal 3.9-4.9 [facility] Comment on above: Order Comment: Speci men Type: BLOOD SPECIMEN Performed By: #### 2 4323-8 #### [facility] CLIA [id number] [address] [facility] [place] [address] [facility] ALP [Catalytic activity/Vol] 117 U/L Normal 34-123 [facility] Comment on above: Order Comment: Speci men Type: BLOOD SPECIMEN Performed By: #### 2 4323-8 #### [facility] CLIA [id number] [address] [facility] [place] [address] [place] [facility] ALT With P-5'-P [Catalytic activity/Vol] 16 U/L Normal 7-38 [facility] Comment on above: Order Comment: Speci men Type: BLOOD SPECIMEN Performed By: #### 2 4323-8 #### [facility] CLIA [id number] [address] [facility] [place] [address] [facility] Anion gap [Moles/Vol] 11 mmol/L Normal 9-18 [facility] Comment on above: Order Comment: Speci men Type: BLOOD SPECIMEN Performed By: #### 2 4323-8 #### [facility] CLIA [id number] [address] [facility] [place] [address] [place] AST With P-5'-P [Catalytic activity/Vol] 15 U/L Normal 13-35 [facility] Comment on above: Order Comment: Speci men Type: BLOOD SPECIMEN Performed By: #### 2 4323-8 #### [facility] CLIA [id number] [address] [facility] [place] [address] [place] Bilirubin [Mass/Vol] 0.5 mg/dL Normal 0.2-1.3 [facility] Comment on above: Order Comment: Speci men Type: BLOOD SPECIMEN Performed By: #### 2 4323-8 #### [facility] CLIA [id number] [address] [place] [address] [place] Calcium [Mass/Vol] 10.0 mg/dL Normal 8.5-10.2 [facility] Comment on above: Order Comment: Speci men Type: BLOOD SPECIMEN Performed By: #### 2 4323-8 #### [facility] CLIA [id number] [address] [place] [address] [place] Chloride [Moles/Vol] 102 mmol/L Normal 97-105 [facility] Comment on above: Order Comment: Speci men Type: BLOOD SPECIMEN Performed By: #### 2 4323-8 #### [facility] CLIA [id number] [address] [place] [address] [place] CO2 [Moles/Vol] 25 mmol/L Normal 22-30 [facility] Comment on above: Order Comment: Speci men Type: BLOOD SPECIMEN Performed By: #### 2 4323-8 #### [facility] CLIA [id number] [address] [place] [address] [place] Creatinine [Mass/Vol] 0.73 mg/dL Normal 0.58-0.96 [facility] Comment on above: Order Comment: Speci men Type: BLOOD SPECIMEN Performed By: #### 2 4323-8 #### [facility] CLIA [id number] [address] [place] [address] [place] GFR/1.73 sq M.predicted among blacks MDRD (S/P/Bld) [Vol rate/Area] mL/min/{1.73_m2} Normal [facility] Comment on above: Order Comment: Speci men Type: BLOOD SPECIMEN Performed By: #### 2 4323-8 #### [facility] CLIA [id number] [address] [place] [address] [place] GFR/1.73 sq M.predicted among non-blacks MDRD (S/P/Bld) [Vol rate/Area] mL/min/{1.73_m2} Normal [facility] Comment on above: [...] GFR. Performed By: #### 2 4323-8 #### [facility] CLIA [id number] [address] [place] [address] [place] Glucose [Mass/Vol] 94 mg/dL Normal 74-99 [facility] Comment on above: Order Comment: Speci men Type: BLOOD SPECIMEN Result Comment: The [place] Diabetes Association (ADA) provides guidance for cutoff [...] Standards of Medical Care in Diabetes 2016, [place] Diabetes Association. Diabetes Care. 2016.39(Suppl 1). Performed By: #### 2 4323-8 #### [facility] CLIA [id number] [address] [place] [address] [place] Potassium [Moles/Vol] 3.5 mmol/L Low 3.7-5.1 [facility] Comment on above: Order Comment: Speci men Type: BLOOD SPECIMEN Performed By: #### 2 4323-8 #### [facility] CLIA [id number] [address] [place] [address] [place] Protein [Mass/Vol] 7.6 g/dL Normal 6.3-8.0 [facility] Comment on above: Order Comment: Speci men Type: BLOOD SPECIMEN Performed By: #### 2 4323-8 #### [facility] CLIA [id number] [address] [place] [address] [place] Sodium [Moles/Vol] 138 mmol/L Normal 136-144 [facility] Comment on above: Order Comment: Speci men Type: BLOOD SPECIMEN Performed By: #### 2 4323-8 #### [facility] CLIA [id number] [address] [place] [address] [place] Urea nitrogen [Mass/Vol] 4 mg/dL Low 7-21 [facility] Comment on above: Order Comment: Speci men Type: BLOOD SPECIMEN Performed By: #### 2 4323-8 #### [facility] CLIA [id number] [address] [place] [address] [place] HCG Preg Ur Qlon 09-18-2020 HCG ( test) Ql (U) Negative Normal Negative [facility] Comment on above: Order Comment: Speci men Type: BLOOD SPECIMEN Result Comment: This test is intended to aid in the early detection of . Very dilute urine samples, as indicated by a low specific gravity, may not contain hr representative levels of hCG. This test detects [...] . Performed By: #### 2 4323-8 #### [facility] CLIA [id number] [address] [place] [address] [place] HIGH SENSITIVITY TROPONIN To n 09-18-2020 HIGH SENSITIVITY SAULO 13 ng/L High <12 [facility] Comment on above: Order [...] MACE. Performed By: #### H STNT #### [facility] CLIA [id number] [address] HIGH SENSITIVITY SAULO 13 ng/L High <12 [facility] Comment on above: Order [...] MACE. Performed By: #### H STNT #### [facility] CLIA [id number] [address] [place] [id number] [place] Lactate (Bld) [Moles/Vol]on 09-18-2020 Lactate [Moles/Vol] 1.3 mmol/L Normal 0.5-2.2 [facility] Comment on above: Order Comment: Speci men Type: BLOOD SPECIMEN Performed By: #### 2 4323-8 #### [facility] CLIA [id number] [address] [place] [id number] [place] RAPID GROUP A STREP RFLX TO CULTon 09-18-2020 S. pyogenes Ag IA Ql (Unsp spec) GROUP A STREP ANTIGEN: Negative Group A Strep Screen Culture negative for Beta Strep Group A Normal [facility] Comment on above: Order Comment: Speci men Type: BLOOD SPECIMEN Performed By: #### 2 4323-8 #### [facility] CLIA [id number] [address] [place] [address] [facility] Urinalysis complete panel (U )on 09-18-2020 Bilirubin Ql (U) Negative Normal Negative [facility] Comment on above: Order Comment: Speci men Type: BLOOD SPECIMEN Performed By: #### 2 4323-8 #### [facility] CLIA [id number] [address] [facility] [place] [address] [facility] Clarity (Unsp spec) Clear Normal Clear [facility] Comment on above: Order Comment: Speci men Type: BLOOD SPECIMEN Performed By: #### 2 4323-8 #### [facility] CLIA [id number] [address] [facility] [place] [place] [address] [facility] Color (U) Yellow Normal Yellow [facility] Comment on above: Order Comment: Speci men Type: BLOOD SPECIMEN Performed By: #### 2 4323-8 #### [facility] CLIA [id number] [address] [facility] [place] [address] [facility] Epithelial cells LM.HPF (Urine sed) [#/Area] Few Normal [facility] Comment on above: Order Comment: Speci men Type: BLOOD SPECIMEN Performed By: #### 2 4323-8 #### [facility] CLIA [id number] [address] [facility] [place] [address] [facility] Glucose Test strip (U) [Mass/Vol] Negative Normal Negative [facility] Comment on above: Order Comment: Speci men Type: BLOOD SPECIMEN Performed By: #### 2 4323-8 #### [facility] CLIA [id number] [address] [facility] [place] [address] [facility] Hemoglobin Ql (U) 2+ Abnormal Negative [facility] Comment on above: Order Comment: Speci men Type: BLOOD SPECIMEN Performed By: #### 2 4323-8 #### [facility] CLIA [id number] 225 [facility] [address] [place] Ketones Ql (U) Negative Normal Negative [facility] Comment on above: Order Comment: Speci men Type: BLOOD SPECIMEN Performed By: #### 2 4323-8 #### [facility] CLIA [id number] [address] [facility] [address] [facility] Leukocyte esterase Test strip Ql (U) Negative Normal Negative [facility] Comment on above: Order Comment: Speci men Type: BLOOD SPECIMEN Performed By: #### 2 4323-8 #### [facility] CLIA [id number] [address] [facility] [address] [facility] Nitrite Ql (U) Negative Normal Negative [facility] Comment on above: Order Comment: Speci men Type: BLOOD SPECIMEN Performed By: #### 2 4323-8 #### [facility] CLIA [id number] [address] [place] [address] [place] pH (U) 7.0 [pH] Normal 5.0-8.0 [facility] Comment on above: Order Comment: Speci men Type: BLOOD SPECIMEN Performed By: #### 2 4323-8 #### [facility] CLIA [id number] [address] [place] [address] [facility] Protein (U) [Mass/Vol] Normal [facility] Comment on above: Order Comment: Speci men Type: BLOOD SPECIMEN Result Comment: Visi ble blood causes falsely elevated results for analyte Protein. Due to this limitation, Protein will not be reported for patients whose urine contains visible blood. Performed By: #### 2 4323-8 #### [facility] CLIA [id number] [address] [place] [address] [place] RBC LM.HPF (Urine sed) [#/Area] 0-3 /HPF Normal 0-3 /HPF [facility] Comment on above: Order Comment: Speci men Type: BLOOD SPECIMEN Performed By: #### 2 4323-8 #### [facility] CLIA [id number] [address] [place] [address] [facility] Specific gravity (U) [Rel density] 1.015 Normal 1.005-1.03 0 [facility] Comment on above: Order Comment: Speci men Type: BLOOD SPECIMEN Performed By: #### 2 4323-8 #### [facility] CLIA [id number] [address] [place] [address] [facility] Urobilinogen Ql (U) 0.2 EU/dL Normal 0.2-1.0 EU/dL [facility] Comment on above: Order Comment: Speci men Type: BLOOD SPECIMEN Performed By: #### 2 4323-8 #### [facility] CLIA [id number] [address] WBC LM.HPF (Urine sed) [#/Area] 0-5 /HPF Normal 0-5 /HPF [facility] Comment on above: Order Comment: Speci men Type: BLOOD SPECIMEN Performed By: #### 2 4323-8 #### [facility] CLIA [id number] [address] XR CHEST 1V FRONTALon 2020 XR [...] of the chest. No acute radiographic abnormality. Manager Of Clinical: KIM Transcribe Date/Time: Sep 18 2020 5:24P Dictated by : ASHIA PONCE MD This examination was interpreted and the report reviewed and electronically signed by: ASHIA PONCE MD on Sep 18 2020 5:26PM EST [id number] Normal [facility] Basic metabolic 2000 panelon 04-17-2020 Anion gap [Moles/Vol] 10 mmol/L Normal 9-18 [facility] Comment on above: Order Comment: Speci men Type: BLOOD SPECIMEN Performed By: #### 2 4323-8 #### [facility] CLIA [id number] [address] [facility] [place] [address] [place] Calcium [Mass/Vol] 9.0 mg/dL Normal 8.5-10.2 [facility] Comment on above: Order Comment: Speci men Type: BLOOD SPECIMEN Performed By: #### 2 4323-8 #### [facility] CLIA [id number] [address] [facility] [place] [address] [place] Chloride [Moles/Vol] 107 mmol/L High 97-105 [facility] Comment on above: Order Comment: Speci men Type: BLOOD SPECIMEN Performed By: #### 2 4323-8 #### [facility] CLIA [id number] [address] [facility] [place] [address] [place] CO2 [Moles/Vol] 23 mmol/L Normal 22-30 [facility] Comment on above: Order Comment: Speci men Type: BLOOD SPECIMEN Performed By: #### 2 4323-8 #### [facility] CLIA [id number] [address] [facility] [place] [address] [place] Creatinine [Mass/Vol] 0.78 mg/dL Normal 0.58-0.96 [facility] Comment on above: Order Comment: Speci men Type: BLOOD SPECIMEN Performed By: #### 2 4323-8 #### [facility] CLIA [id number] [address] [facility] [place] [address] [place] GFR/1.73 sq M.predicted among blacks MDRD (S/P/Bld) [Vol rate/Area] mL/min/{1.73_m2} Normal [facility] Comment on above: Order Comment: Speci men Type: BLOOD SPECIMEN Performed By: #### 2 4323-8 #### [facility] CLIA [id number] [address] [place] [address] [place] GFR/1.73 sq M.predicted among non-blacks MDRD (S/P/Bld) [Vol rate/Area] mL/min/{1.73_m2} Normal [facility] Comment on above: [...] GFR. Performed By: #### 2 4323-8 #### [facility] CLIA [id number] [address] [place] [address] [place] Glucose [Mass/Vol] 91 mg/dL Normal 74-99 [facility] Comment on above: Order Comment: David horton Type: BLOOD SPECIMEN Result Comment: The [place] Diabetes Association (ADA) provides guidance for cutoff [...] Standards of Medical Care in Diabetes 2016, [place] [employer] Association. Diabetes Care. 2016.39(Suppl 1). Performed By: #### 2 4323-8 #### [facility] CLIA [id number] [address] [place] [address] [place] Potassium [Moles/Vol] 3.4 mmol/L Low 3.7-5.1 [facility] Comment on above: Order Comment: Speci men Type: BLOOD SPECIMEN Performed By: #### 2 4323-8 #### [facility] CLIA [id number] [address] [facility] [address] [place] Sodium [Moles/Vol] 140 mmol/L Normal 136-144 [facility] Comment on above: Order Comment: Speci men Type: BLOOD SPECIMEN Performed By: #### 2 4323-8 #### [facility] CLIA [id number] [address] [place] [address] [place] Urea nitrogen [Mass/Vol] 6 mg/dL Low 7-21 [facility] Comment on above: Order Comment: Speci men Type: BLOOD SPECIMEN Performed By: #### 2 4323-8 #### [facility] CLIA [id number] [address] [place] [address] [place] CBC panel Auto (Bld)on 04-17 Erythrocyte distribution width (RBC) [Ratio] 12.6 % Normal 11.5-15.0 [facility] Comment on above: Order Comment: Speci men Type: BLOOD SPECIMEN Performed By: #### 5 8410-2 #### [facility] CLIA [id number] [address] [place] [address] [place] Hematocrit (Bld) [Volume fraction] 40.4 % Normal 36.0-46.0 [facility] Comment on above: Order Comment: Speci men Type: BLOOD SPECIMEN Performed By: #### 5 8410-2 #### [facility] CLIA [id number] [address] [place] [address] [place] Hemoglobin (Bld) [Mass/Vol] 13.1 g/dL Normal 11.5-15.5 [facility] Comment on above: Order Comment: Speci men Type: BLOOD SPECIMEN Performed By: #### 5 8410-2 #### [facility] CLIA [id number] [address] [place] [address] [facility] MCH (RBC) [Entitic mass] 30.4 pg Normal 26.0-34.0 [facility] Comment on above: Order Comment: Speci men Type: BLOOD SPECIMEN Performed By: #### 5 8410-2 #### [facility] CLIA [id number] [address] [place] [address] [facility] MCHC (RBC) [Mass/Vol] 32.4 g/dL Normal 30.5-36.0 [facility] Comment on above: Order Comment: Speci men Type: BLOOD SPECIMEN Performed By: #### 5 8410-2 #### [facility] CLIA [id number] [address] [facility] [address] [place] MCV (RBC) [Entitic vol] 93.7 fL Normal 80.0-100.0 [place] Comment on above: Order Comment: Speci men Type: BLOOD SPECIMEN Performed By: #### 5 8410-2 #### [facility] CLIA [id number] [address] [place] [address] [place] Platelet mean volume (Bld) [Entitic vol] 10.8 fL Normal 9.0-12.7 [facility] Comment on above: Order Comment: Speci men Type: BLOOD SPECIMEN Performed By: #### 5 8410-2 #### [facility] CLIA [id number] [address] [place] [address] [place] Platelets (Bld) [#/Vol] 241 10*3/uL Normal 150-400 [facility] Comment on above: Order Comment: Speci men Type: BLOOD SPECIMEN Performed By: #### 5 8410-2 #### [facility] CLIA [id number] [address] [place] [address] [place] RBC (Bld) [#/Vol] 4.31 10*6/uL Normal 3.90-5.20 [facility] Comment on above: Order Comment: Speci men Type: BLOOD SPECIMEN Performed By: #### 5 8410-2 #### [facility] CLIA [id number] [address] [place], [place] [address] [place] [address] WBC (Bld) [#/Vol] 11.29 10*3/uL High 3.70-11.00 [facility] Comment on above: Order Comment: Speci men Type: BLOOD SPECIMEN Performed By: #### 5 8410-2 #### [facility] CLIA [id number] [address] D dimer FEU PPP-mCncon 04-17 Fibrin D-dimer FEU (PPP) [Mass/Vol] 310 ng/mL FEU Normal <500 [facility] Comment on above: Order Comment: Speci men Type: BLOOD SPECIMEN Performed By: #### 2 4323-8 #### [facility] CLIA [id number] [address] HCG Preg Ur Qlon 04-17-2020 HCG ( test) Ql (U) Negative Normal Negative [facility] Comment on above: Order Comment: Speci men Type: URINE SPECIMEN Result Comment: This test is intended to aid in the early detection of . Very dilute urine samples, as indicated by a low specific gravity, may not contain hr representative levels of hCG. This test detects [...] . Performed By: #### 2 106-3 #### [facility] CLIA [id number] [address] HIGH SENSITIVITY TROPONIN To n 04-17-2020 HIGH SENSITIVITY SAULO 14 ng/L High <12 [facility] Comment on above: Order [...] MACE. Performed By: #### H STNT #### [facility] CLIA [id number] [address] [place], [place] [address] [place] [address] HIGH SENSITIVITY SAULO 14 ng/L High <12 [facility] Comment on above: Order [...] MACE. Performed By: #### 2 4323-8 #### [facility] CLIA [id number] [address] XR CHEST 1V FRONTALon 2020 XR [...] Other: - IMPRESSION: No acute radiographic abnormality. Manager Of Clinical: KIM Transcribe Date/Time: Apr 16 2020 11:07P Dictated by : VICTOR M STALEY MD This examination was interpreted and the report reviewed and electronically signed by: VICTOR M STALEY MD on Apr 16 2020 11:10PM EST Normal [place] CORONAVIRUS 2019 BY PCRon CORONAVIRUS 2019,PCR NOT DETECTED Normal Not Detected [facility] Comment on above: Result Comment: . This [...] patient management decisions. Fact sheet for providers: https://www.fda.gov/media/907447/download Fact sheet for patients: https://www.fda.gov/media/858275/download This test has received FDA Emergency Use Authorization (EUA) and has been verified by [facility] ([facility]). This test is only authorized for the duration of time that circumstances exist to justify the authorization of the emergency use of in vitro diagnostic tests for the detection of SARS-CoV-2 virus and/or diagnosis of COVID-19 infection under section 564(b)(1) of the Act, 21 U.S.C. 360bbb-3(b)(1), unless the authorization is terminated or revoked sooner. [facility] is certified under CLIA-88 as qualified to perform high complexity testing. Testing is performed in the [facility] laboratories located at [address] [place] [address]. Performed By: #### C OV19 #### [place] [address] DATE OF SYMPTOM ONSET [YYYYMMDD]? 20200319 Normal [facility] Comment on above: Performed By: #### C OV19 #### [place] [id number] Covid 19 Resultson 1 Covid 19 Results [...] You may also be contacted by the [facility] to see if any of your close [...] or Naproxen (Aleve) can also be used. Eycw-hoq-kvxvuwu cough and cold medicines can be used according to the instructions on the package. Some mtmz-ntq-acdixlr medicines also contain acetaminophen. Make sure you [...] water are not available, use alcohol-based hand swimmer. Avoid touching your eyes, nose, and mouth [...] a total of 10 days. Additional resources: [facility] COVID Hotline at 2-251-1GFQNKF ( ). COVID-19 Careline at (available 24 hours per day, seven days a week if you or a loved one is experiencing anxiety related to the coronavirus pandemic). Clinical research opportunities: is conducting research studies to develop better testing and treatments for COVID. Do you want any information on how to participate Call [phone]. Websites: hospitals.org or www.CDC.gov Follow My Health / My UHCare (for other test results): Revised 01/29/2020 Electronic Signatures: SOBIA MonrealMSmaryices (ADMIN) (Signature pending) Authored Last Updated: 23-Mar-2020 06:43 by Rah PSCMSmaryices (ADMIN) Normal [facility] CORONAVIRUS 2019 BY PCRon Lab Specimen Source Nasal, Nasopharyngeal Normal [facility] Comment on above: Performed By: #### C OV19 #### [facility] [address] [place] [address] CT CERVICAL SPINE WO IVCONon 12-10-2019 CT [...] No cervical spine fracture or traumatic malalignment. Manager Of Clinical: [facility] Transcribe Date/Time: Dec 10 2019 8:59P Dictated by : DEX TOLENTINO MD This examination was interpreted and the report reviewed and electronically signed by: DEX TOLENTINO MD on Dec 10 2019 9:08PM EST Normal [facility] XR CHEST 1V FRONTALon 2019 XR [...] No acute bony abnormality. IMPRESSION:No acute process. Manager Of Clinical: [facility] Transcribe Date/Time: Dec 10 2019 9:18P Dictated by : JOEY OVALLES MD This examination was interpreted and the report reviewed and electronically signed by: JOEY OVALLES MD on Dec 10 2019 9:19PM EST Normal [place] XR SHLDR >/=3V AP/ELENA AP/OTH R LTon [...] normal. Joint spaces are preserved. IMPRESSION:Normal shoulder. Manager Of Clinical: KIM Transcribe Date/Time: Dec 10 2019 9:14P Dictated by : JOEY OVALLES MD This examination was interpreted and the report reviewed and electronically signed by: JOEY OVALLES MD on Dec 10 2019 9:17PM EST Normal [place] XR THORACIC 3V AP/LAT/SWIMME RSon 12-10-2019 XR [...] No significant degenerative spondylosis. IMPRESSION:Normal thoracic spine. Manager Of Clinical: KIM Transcribe Date/Time: Dec 10 2019 9:19P Dictated by : JOEY OVALLES MD This examination was interpreted and the report reviewed and electronically signed by: JOEY OVALLES MD on Dec 10 2019 9:21PM EST Normal [place] HISTORY PHYSICALon 06-14-201 8 HISTORY PHYSICAL HNO ID: [id number]: Nallely Min (Pac) Eduardo De La Garzaice: (none)Author Type: Physician AssistantType: HANDPFiled: 08/25/2017 12:58 [...] PAST SURGICAL HISTORY OF 05/24/2014 Laparoscopy, - [place] ANESTH,PACEMAKER INSERTION 2006 ICD implant, [facility]- REMOVAL OF OVARY(S) Left 2010 For [...] and Percocet- Ativan [Lorazepam] Vomiting- Azithromycin Intolerance- [place] Anaphylaxis- Fish Anaphylaxis- Levofloxacin In D5w Swelling, [...] August 25, 2017 : 12:58 PM PAGER: [phone] [facility] PT EDon 08-25-2017 PT ED HNO ID: [id number]: Roxane (Yesenia) Marco, RNService: (none)Author Type: Registered NurseType: Patient EducationFiled: 08/25/2017 [...] By Roxane Lara RN In Department: PROCEDURES Normal [facility] PT ED HNO ID: [id number]: Arvind (Rn) DEUCE Bahenaervice: NursingAuthor Type: Registered NurseType: Patient EducationFiled: 08/25/2017 12:47 PMNote Text:PRE OP LEARNING ASSESSMENTPROCEDURE/SURG QUINN: GI PROCEDURES: EGDREADINESS TO LEARNCOGNITIVE ABILITY: Alert and orientedMOTIVATION TO LEARN: EagerFAMILY SUPPORT: High - Very involved in pt carePATIENT LEARNS BEST BY: Verbal InstructionFACTORS AFFECTING LEARNING: NonePHYSICAL LIMITATIONS AFFECTING LEARNING: NoneElectronically Signed By: Arvind Bahena RN [facility] SURGICAL PATHOLOGYon 018 SURGICAL PATHOLOGY [facility]: [id number] Physician: BALDO KENNEDY FINAL DIAGNOSISAntrum, biopsy - [...] submitted in one cassette.Gross examination performed at [facility], [address] [place] [address] 08/25/17Patient ID #: [id number] [id number] Report: 08/27/2017Date of Procedure: 08/25/2017Date of Receipt: 08/25/2017Submitted by: BALDO TABBAALocation: AVENDiagnostic interpretation performed at [facility], [address] [place] [address]. Normal [facility] Comment on above: Performed By: #### S ####See report for performing lab information. HOSPon 08-22-2017 HOSP Patient:AlbadelmiDick RN: Height:5' 4(1.626 m)Weight:116 lb (52.617 kg)Outpatient [...] and vomiting [R11.2]Allergies:Morphin eAtivan [Lorazepam]AzithromycinC ucumberFishLevofloxacin In B7tKiibwwjrh [Gabapentin]pickles [Other]ShellfishTigan [Trimethobenzamide-Benzo dick]Ultram [Tramadol]Vicodin [Hydrocodone-Acetaminoph en]Zofran [Ondansetron Hcl (Pf)]Date Verified: 08/25/17Lab ValuesLab Value Units Date High LowPOTA* 3.1 mEq/L 08/05/2017 5.1 3.5HEMA* 41.2 % 08/05/2017 47.0 37.0Progress Notes ([facility]IO [facility] CC):Kwasi Stephens Rt 08/22/2017 11:17 AM Signed Radiology Service Progress NotePATIENT NAME: Michelle MitchellMRN: [id number] OF SERVICE: August 22, 2017TIME: 11:16 AMPATIENT IDENTITY VERIFICATION COMPLETED USING TWO (2) METHODS: Patientconfirmed name verbally and Date of .PATIENT GENDER DATA: Female. status: : No Breastfeedingstatus: NO.PATIENT RELEVANT IMPLANT DATA REVIEWED: Not ApplicableRADIOLOGY DEPARTMENT: General X-ray: Exam(s) Completed: Abdomen X-Ray AbdomenPERIPHERAL IV DATA: Not applicableSIGNED BY: Praveena Traore RtJunalmita 2017 11:16 AMProgress Notes ([facility] REJ):Jacqueline Stevens MA, MA 08/22/2017 10:[address] Aguilera is in regards to our mutual patient Michelle Mitchell who is scheduled gwendolyn EGD on 08/25/2017. Dr. Kennedy is requesting that Ms. Mitchell stop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s prior to procedure.Please advise and route message to:P AVW CORS/SERGIO NURSE [id number] Stevens MA, MA 08/23/2017 8:07 AM SignedJoseph Manjinder Wilkinson ?You 20 hours ago (11:27 AM)Yes may stop for egd (Routing comment) [facility] Vital Signs Date Time Vital Sign Value Performing Clinician Facility 11-23-2024 15:25-0400 Body temperature 98.6 [degF] Dr. Dex Wilkinson MD Work Phone: [facility] 11-23-2024 15:25-0400 Diastolic blood pressure 68 mm[Hg] Dr. Dex Wilkinson MD Work Phone: [facility] 11-23-2024 15:25-0400 Heart rate 75 /min Dr. Dex Wilkinson MD Work Phone: [facility] 11-23-2024 15:25-0400 Respiratory rate 18 /min Dr. Dex Wilkinson MD Work Phone: [facility] 11-23-2024 15:25-0400 SaO2% (BldA) [Mass fraction] 100 % Dr. Dex Wilkinson MD Work Phone: [facility] 11-23-2024 15:25-0400 Systolic blood pressure 98 mm[Hg] Dr. Dex Wilkinson MD Work Phone: [facility] 11-23-2024 12:38-0400 Body height 162.[address] Dex Wilkinson MD Work Phone: [facility] 11-23-2024 12:38-0400 Body mass index (BMI) [Ratio] 21.9 kg/m2 Dr. Dex Wilkinson MD Work Phone: [facility] 11-23-2024 12:38-0400 Body weight 57.[address] Dex Wilkinson MD Work Phone: [facility] 11-21-2024 10:30-0400 Body height 162.6 cm Radu Kay MD Work Phone: [facility] 11-21-2024 10:30-0400 Body mass index (BMI) [Ratio] 21.63 kg/m2 Radu Kay MD Work Phone: [facility] 11-21-2024 10:30-0400 Body weight 57.15 kg Radu Kay MD Work Phone: [facility] 11-21-2024 10:30-0400 Diastolic blood pressure 45 mm[Hg] Radu Kay MD Work Phone: [facility] 11-21-2024 10:30-0400 Heart rate 73 /min Radu Kay MD Work Phone: [facility] 11-21-2024 10:30-0400 Respiratory rate 16 /min Radu Kay MD Work Phone: [facility] 11-21-2024 10:30-0400 SaO2% (BldA) [Mass fraction] 99 % Radu Kay MD Work Phone: [facility] 11-21-2024 10:30-0400 Systolic blood pressure 115 mm[Hg] Radu Kay MD Work Phone: [facility] 10-17-2024 15:31-0400 Body height 162.[address] Dex Wilkinson MD Work Phone: [facility] 10-17-2024 15:31-0400 Body mass index (BMI) [Ratio] 20.4 kg/m2 Dr. Dex Wilkinson MD Work Phone: [facility] 10-17-2024 15:31-0400 Body weight 53.[address] Dex Wilkinson MD Work Phone: [facility] 10-17-2024 15:31-0400 Diastolic blood pressure 74 mm[Hg] Dr. Dex Wilkinson MD Work Phone: [facility] 10-17-2024 15:31-0400 Heart rate 65 /min Dr. Dex Wilkinson MD Work Phone: [facility] 10-17-2024 15:31-0400 Respiratory rate 16 /min Dr. Dex Wilkinson MD Work Phone: [facility] 10-17-2024 15:31-0400 SaO2% (BldA) [Mass fraction] 97 % Dr. Dex Wilkinson MD Work Phone: [facility] 10-17-2024 15:31-0400 Systolic blood pressure 116 mm[Hg] Dr. Dex Wilkinson MD Work Phone: [facility] 09-23-2024 08:06-0400 Body temperature 97 [degF] Rocky Everett DO Work Phone: [facility] 09-23-2024 08:06-0400 Diastolic blood pressure 78 mm[Hg] Rocky Everett DO Work Phone: [facility] 09-23-2024 08:06-0400 Heart rate 70 /min Rocky Everett DO Work Phone: [facility] 09-23-2024 08:06-0400 Respiratory rate 16 /min Rocky Everett DO Work Phone: [facility] 09-23-2024 08:06-0400 SaO2% (BldA) [Mass fraction] 98 % Rocky Everett DO Work Phone: [facility] 09-23-2024 08:06-0400 Systolic blood pressure 120 mm[Hg] Rocky Everett DO Work Phone: [facility] 09-23-2024 06:07-0400 Body mass index (BMI) [Ratio] 20.28 kg/m2 Rocky Everett DO Work Phone: [facility] 09-23-2024 06:07-0400 Body weight 53.6 kg Rocky Everett DO Work Phone: [facility] 09-21-2024 04:25-0400 Body height 162.6 cm Rocky Everett DO Work Phone: [facility] 09-18-2024 13:12-0400 Body height 162.[address] Dex Wilkinson MD Work Phone: [facility] 09-18-2024 13:12-0400 Diastolic blood pressure 85 mm[Hg] Dr. Dex Wilkinson MD Work Phone: [facility] 09-18-2024 13:12-0400 Heart rate 67 /min Dr. Dex Wilkinson MD Work Phone: [facility] 09-18-2024 13:12-0400 SaO2% (BldA) [Mass fraction] 98 % Dr. Dex Wilkinson MD Work Phone: [facility] 09-18-2024 13:12-0400 Systolic blood pressure 133 mm[Hg] Dr. Dex Wilkinson MD Work Phone: [facility] 09-14-2024 10:19-0400 Heart rate 60 /min Dr. Dex Wilkinson MD Work Phone: [facility] 09-14-2024 09:00-0400 Body temperature 97.3 [degF] Dr. Dex Wilkinson MD Work Phone: [facility] 09-14-2024 09:00-0400 Diastolic blood pressure 84 mm[Hg] Dr. Dex Wilkinson MD Work Phone: [facility] 09-14-2024 09:00-0400 Respiratory rate 17 /min Dr. Dex Wilkinson MD Work Phone: [facility] 09-14-2024 09:00-0400 SaO2% (BldA) [Mass fraction] 99 % Dr. Dex Wilkinson MD Work Phone: [facility] 09-14-2024 09:00-0400 Systolic blood pressure 119 mm[Hg] Dr. Dex Wilkinson MD Work Phone: [facility] 09-14-2024 06:00-0400 Body mass index (BMI) [Ratio] 24.5 kg/m2 Dr. Dex Wilkinson MD Work Phone: [facility] 09-14-2024 06:00-0400 Body weight 64.[address] Dex Wilkinson MD Work Phone: [facility] 09-12-2024 00:26-0400 Body height 162.[address] Dex Wilkinson MD Work Phone: [facility] 09-11-2024 23:27-0400 Body temperature 98 [degF] Dr. Dex Wilkinson MD Work Phone: [facility] 09-11-2024 23:27-0400 Diastolic blood pressure 95 mm[Hg] Dr. Dex Wilkinson MD Work Phone: [facility] 09-11-2024 23:27-0400 Heart rate 78 /min Dr. Dex Wilkinson MD Work Phone: [facility] 09-11-2024 23:27-0400 Respiratory rate 16 /min Dr. Dex Wilkinson MD Work Phone: [facility] 09-11-2024 23:27-0400 SaO2% (BldA) [Mass fraction] 99 % Dr. Dex Wilkinson MD Work Phone: [facility] 09-11-2024 23:27-0400 Systolic blood pressure 131 mm[Hg] Dr. Dex Wilkinson MD Work Phone: [facility] 09-11-2024 17:19-0400 Body height 162.[address] Dex Wilkinson MD Work Phone: [facility] 09-11-2024 17:19-0400 Body mass index (BMI) [Ratio] 21.6 kg/m2 Dr. Dex Wilkinson MD Work Phone: [facility] 09-11-2024 17:19-0400 Body weight 57.[address] Dex Wilkinson MD Work Phone: [facility] 08-27-2024 12:03-0400 Diastolic blood pressure 75 mm[Hg] Dr. Dex Wilkinson MD Work Phone: [facility] 08-27-2024 12:03-0400 Heart rate 63 /min Dr. Dex Wilkinson MD Work Phone: [facility] 08-27-2024 12:03-0400 Respiratory rate 18 /min Dr. Dex Wilkinson MD Work Phone: [facility] 08-27-2024 12:03-0400 SaO2% (BldA) [Mass fraction] 96 % Dr. Dex Wilkinson MD Work Phone: [facility] 08-27-2024 12:03-0400 Systolic blood pressure 134 mm[Hg] Dr. Dex Wilkinson MD Work Phone: [facility] 08-24-2024 15:22-0400 Body temperature 97.9 [degF] Dr. Dex Wilkinson MD Work Phone: [facility] 08-24-2024 15:22-0400 Diastolic blood pressure 61 mm[Hg] Dr. Dex Wilkinson MD Work Phone: [facility] 08-24-2024 15:22-0400 Heart rate 54 /min Dr. Dex Wilkinson MD Work Phone: [facility] 08-24-2024 15:22-0400 Respiratory rate 16 /min Dr. Dex Wilkinson MD Work Phone: [facility] 08-24-2024 15:22-0400 SaO2% (BldA) [Mass fraction] 99 % Dr. Dex Wilkinson MD Work Phone: [facility] 08-24-2024 15:22-0400 Systolic blood pressure 103 mm[Hg] Dr. Dex Wilkinson MD Work Phone: [facility] 08-22-2024 08:40-0400 Inhaled oxygen flow rate 97 L/min Dr. Dex Wilkinson MD Work Phone: [facility] 08-21-2024 16:39-0400 Body height 162.[address] Dex Wilkinson MD Work Phone: [facility] 08-21-2024 16:39-0400 Body mass index (BMI) [Ratio] 21.7 kg/m2 Dr. Dex Wilkinson MD Work Phone: [facility] 08-21-2024 16:39-0400 Body weight 57.[address] Dex Wilkinson MD Work Phone: [facility] 08-20-2024 18:00-0400 Body temperature 97.8 [degF] Dr. Dex Wilkinson MD Work Phone: [facility] 08-20-2024 18:00-0400 Diastolic blood pressure 88 mm[Hg] Dr. eDx Wilkinson MD Work Phone: [facility] 08-20-2024 18:00-0400 Heart rate 63 /min Dr. Dex Wilkinson MD Work Phone: [facility] 08-20-2024 18:00-0400 Respiratory rate 18 /min Dr. Dex Wilkinson MD Work Phone: [facility] 08-20-2024 18:00-0400 SaO2% (BldA) [Mass fraction] 100 % Dr. Dex Wilkinson MD Work Phone: [facility] 08-20-2024 18:00-0400 Systolic blood pressure 136 mm[Hg] Dr. Dex Wilkinson MD Work Phone: [facility] 08-20-2024 14:16-0400 Body height 162.[address] Dex Wilkinson MD Work Phone: [facility] 08-20-2024 14:16-0400 Body mass index (BMI) [Ratio] 22.2 kg/m2 Dr. Dex Wilkinson MD Work Phone: [facility] 08-20-2024 14:16-0400 Body weight 58.[address] Dex Wilkinson MD Work Phone: [facility] 08-15-2024 10:57-0400 Body height 162.6 cm Radu Kay MD Work Phone: [facility] 08-15-2024 10:57-0400 Body mass index (BMI) [Ratio] 21.7 kg/m2 Radu Kay MD Work Phone: [facility] 08-15-2024 10:57-0400 Body weight 57.34 kg Radu Kay MD Work Phone: [facility] 08-15-2024 10:57-0400 Diastolic blood pressure 59 mm[Hg] Radu Kay MD Work Phone: [facility] 08-15-2024 10:57-0400 Heart rate 65 /min Radu Kay MD Work Phone: [facility] 08-15-2024 10:57-0400 Respiratory rate 16 /min Radu Kay MD Work Phone: [facility] 08-15-2024 10:57-0400 SaO2% (BldA) [Mass fraction] 96 % Radu Kay MD Work Phone: [facility] 08-15-2024 10:57-0400 Systolic blood pressure 120 mm[Hg] Radu Kay MD Work Phone: [facility] 08-11-2024 13:41-0400 Body temperature 97.8 [degF] Dr. Dex Wilkinson MD Work Phone: [facility] 08-11-2024 13:41-0400 Diastolic blood pressure 76 mm[Hg] Dr. Dex Wilkinson MD Work Phone: [facility] 08-11-2024 13:41-0400 Heart rate 64 /min Dr. Dex Wilkinson MD Work Phone: [facility] 08-11-2024 13:41-0400 Respiratory rate 16 /min Dr. Dex Wilkinson MD Work Phone: [facility] 08-11-2024 13:41-0400 SaO2% (BldA) [Mass fraction] 97 % Dr. Dex Wilkinson MD Work Phone: [facility] 08-11-2024 13:41-0400 Systolic blood pressure 105 mm[Hg] Dr. Dex Wilkinson MD Work Phone: [facility] 08-11-2024 10:27-0400 Body height 162.[address] Dex Wilkinson MD Work Phone: [facility] 08-11-2024 10:27-0400 Body mass index (BMI) [Ratio] 20.7 kg/m2 Dr. Dex Wilkinson MD Work Phone: [facility] 08-11-2024 10:27-0400 Body weight 54.[address] Dex Wilkinson MD Work Phone: [facility] 07-25-2024 16:43-0400 Diastolic blood pressure 57 mm[Hg] [facility] 07-25-2024 16:43-0400 Heart rate 61 /min [facility] 07-25-2024 16:43-0400 Respiratory rate 18 /min [facility] 07-25-2024 16:43-0400 SaO2% (BldA) [Mass fraction] 95 % [facility] 07-25-2024 16:43-0400 Systolic blood pressure 110 mm[Hg] [facility] 07-25-2024 15:04-0400 Body temperature 98.2 [degF] [facility] 07-24-2024 08:20-0400 Inhaled oxygen flow rate 2 L/min Dr. Dex Wilkinson MD Work Phone: [facility] 07-24-2024 08:20-0400 SaO2% (BldA) [Mass fraction] 96 % Dr. Dex Wilkinson MD Work Phone: [facility] 07-24-2024 07:41-0400 Body temperature 97.6 [degF] Dr. Dex Wilkinson MD Work Phone: [facility] 07-24-2024 07:41-0400 Diastolic blood pressure 79 mm[Hg] Dr. Dex Wilkinson MD Work Phone: [facility] 07-24-2024 07:41-0400 Heart rate 62 /min Dr. Dex Wilkinson MD Work Phone: [facility] 07-24-2024 07:41-0400 Respiratory rate 17 /min Dr. Dex Wilkinson MD Work Phone: [facility] 07-24-2024 07:41-0400 Systolic blood pressure 126 mm[Hg] Dr. Dex Wilkinson MD Work Phone: [facility] 07-24-2024 06:00-0400 Body mass index (BMI) [Ratio] 22.8 kg/m2 Dr. Dex Wilkinson MD Work Phone: [facility] 07-24-2024 06:00-0400 Body weight 60.[address] Dex Wilkinson MD Work Phone: [facility] 07-21-2024 09:02-0400 Body height 162.[address] Dex Wilkinson MD Work Phone: [facility] 07-20-2024 23:38-0400 Body temperature 98.2 [degF] Dr. Dex Wilkinson MD Work Phone: [facility] 07-20-2024 23:38-0400 Diastolic blood pressure 100 mm[Hg] Dr. Dex Wilkinson MD Work Phone: [facility] 07-20-2024 23:38-0400 Heart rate 70 /min Dr. Dex Wilkinson MD Work Phone: [facility] 07-20-2024 23:38-0400 Respiratory rate 15 /min Dr. Dex Wilkinson MD Work Phone: [facility] 07-20-2024 23:38-0400 SaO2% (BldA) [Mass fraction] 99 % Dr. Dex Wilkinson MD Work Phone: [facility] 07-20-2024 23:38-0400 Systolic blood pressure 133 mm[Hg] Dr. Dex Wilkinson MD Work Phone: [facility] 07-20-2024 18:57-0400 Body height 162.[address] Dex Wilkinson MD Work Phone: [facility] 07-20-2024 18:57-0400 Body mass index (BMI) [Ratio] 23.6 kg/m2 Dr. Dex Wilkinson MD Work Phone: [facility] 07-20-2024 18:57-0400 Body weight 62.[address] Dex Wilkinson MD Work Phone: [facility] 07-12-2024 12:25-0400 Body temperature 97.4 [degF] Dr. Dex Wilkinson MD Work Phone: [facility] 07-12-2024 12:25-0400 Diastolic blood pressure 69 mm[Hg] Dr. Dex Wilkinson MD Work Phone: [facility] 07-12-2024 12:25-0400 Heart rate 60 /min Dr. Dex Wilkinson MD Work Phone: [facility] 07-12-2024 12:25-0400 Respiratory rate 16 /min Dr. Dex Wilkinson MD Work Phone: [facility] 07-12-2024 12:25-0400 SaO2% (BldA) [Mass fraction] 98 % Dr. Dex Wilkinson MD Work Phone: [facility] 07-12-2024 12:25-0400 Systolic blood pressure 103 mm[Hg] Dr. Dex Wilkinson MD Work Phone: [facility] 07-12-2024 10:17-0400 Body mass index (BMI) [Ratio] 21.5 kg/m2 Dr. Dex Wilkinson MD Work Phone: [facility] 07-12-2024 10:17-0400 Body weight [address] Dex Wilkinson MD Work Phone: [facility] 07-10-2024 07:16-0400 Body mass index (BMI) [Ratio] 21.6 kg/m2 Dr. Dex Wilkinson MD Work Phone: [facility] 07-10-2024 07:16-0400 Body weight 57.[address] Dex Wilkinson MD Work Phone: [facility] 07-10-2024 07:16-0400 Diastolic blood pressure 83 mm[Hg] Dr. Dex Wilkinson MD Work Phone: [facility] 07-10-2024 07:16-0400 Heart rate 70 /min Dr. Dex Wilkinson MD Work Phone: [facility] 07-10-2024 07:16-0400 Respiratory rate 16 /min Dr. Dex Wilkinson MD Work Phone: [facility] 07-10-2024 07:16-0400 SaO2% (BldA) [Mass fraction] 98 % Dr. Dex Wilkinson MD Work Phone: [facility] 07-10-2024 07:16-0400 Systolic blood pressure 134 mm[Hg] Dr. Dex Wilkinson MD Work Phone: [facility] 07-03-2024 17:55-0400 Body temperature 98.2 [degF] Dr. Dex Wilkinson MD Work Phone: [facility] 07-03-2024 17:55-0400 Diastolic blood pressure 93 mm[Hg] Dr. Dex Wilkinson MD Work Phone: [facility] 07-03-2024 17:55-0400 Heart rate 68 /min Dr. Dex Wilkinson MD Work Phone: [facility] 07-03-2024 17:55-0400 Respiratory rate 19 /min Dr. Dex Wilkinson MD Work Phone: [facility] 07-03-2024 17:55-0400 SaO2% (BldA) [Mass fraction] 99 % Dr. Dex Wilkinson MD Work Phone: [facility] 07-03-2024 17:55-0400 Systolic blood pressure 142 mm[Hg] Dr. Dex Wilkinson MD Work Phone: [facility] 07-03-2024 13:30-0400 Body mass index (BMI) [Ratio] 22.9 kg/m2 Dr. Dex Wilkinson MD Work Phone: [facility] 07-03-2024 13:30-0400 Body weight 60.[address] Dex Wilkinson MD Work Phone: [facility] 07-01-2024 23:24-0400 Body temperature 97.9 [degF] Dr. Dex Wilkinson MD Work Phone: [facility] 07-01-2024 23:24-0400 Diastolic blood pressure 100 mm[Hg] Dr. Dex Wilkinson MD Work Phone: [facility] 07-01-2024 23:24-0400 Heart rate 70 /min Dr. Dex Wilkinson MD Work Phone: [facility] 07-01-2024 23:24-0400 Respiratory rate 17 /min Dr. Dex Wilkinson MD Work Phone: [facility] 07-01-2024 23:24-0400 SaO2% (BldA) [Mass fraction] 99 % Dr. Dex Wilkinson MD Work Phone: [facility] 07-01-2024 23:24-0400 Systolic blood pressure 136 mm[Hg] Dr. Dex Wilkinson MD Work Phone: [facility] 07-01-2024 19:52-0400 Body height 162.[address] Dex Wilkinson MD Work Phone: [facility] 07-01-2024 19:52-0400 Body mass index (BMI) [Ratio] 22 kg/m2 Dr. Dex Wilkinson MD Work Phone: [facility] 07-01-2024 19:52-0400 Body weight 58.[address] Dex Wilkinson MD Work Phone: [facility] 05-11-2024 23:42-0500 Body mass index (BMI) [Ratio] 21.5 kg/m2 Dr. Dex Wilkinson MD Work Phone: [facility] 05-11-2024 23:42-0500 Body temperature 98.2 [degF] Dr. Dex Wilkinson MD Work Phone: [facility] 05-11-2024 23:42-0500 Body weight 56.[address] Dex Wilkinson MD Work Phone: [facility] 05-11-2024 23:42-0500 Diastolic blood pressure 105 mm[Hg] Dr. Dex Wilkinson MD Work Phone: [facility] 05-11-2024 23:42-0500 Heart rate 105 /min Dr. Dex Wilkinson MD Work Phone: [facility] 05-11-2024 23:42-0500 Respiratory rate 20 /min Dr. Dex Wilkinson MD Work Phone: [facility] 05-11-2024 23:42-0500 SaO2% (BldA) [Mass fraction] 100 % Dr. Dex Wilkinson MD Work Phone: [facility] 05-11-2024 23:42-0500 Systolic blood pressure 169 mm[Hg] Dr. Dex Wilkinson MD Work Phone: [facility] 10-31-2023 10:45-0400 Diastolic Blood Pressure Non-Invasive 60 mm[Hg] DR VICTOR M ORTIZ MD [facility] 10-31-2023 10:45-0400 Heart rate 65 /min DR VICTOR M ORTIZ MD [facility] 10-31-2023 10:45-0400 Respiratory rate 20 /min DR VICTOR M ORTIZ MD [facility] 10-31-2023 10:45-0400 Systolic Blood Pressure Non-Invasive 95 mm[Hg] DR VICTOR M ORTIZ MD [facility] 10-31-2023 10:41-0400 Diastolic Blood Pressure Non-Invasive 54 mm[Hg] DR VICTOR M ORTIZ MD [facility] 10-31-2023 10:41-0400 Heart rate 65 /min DR VICTOR M ORTIZ MD [facility] 10-31-2023 10:41-0400 Respiratory rate 24 /min DR VICTOR M ORTIZ MD [facility] 10-31-2023 10:41-0400 Systolic Blood Pressure Non-Invasive 93 mm[Hg] DR VICTOR M ORTIZ MD [facility] 10-31-2023 10:35-0400 Diastolic Blood Pressure Non-Invasive 52 mm[Hg] DR VICTOR M ORTIZ MD [facility] 10-31-2023 10:35-0400 Heart rate 67 /min DR VICTOR M ORTIZ MD [facility] 10-31-2023 10:35-0400 Respiratory rate 24 /min DR VICTOR M ORTIZ MD [facility] 10-31-2023 10:35-0400 Systolic Blood Pressure Non-Invasive 89 mm[Hg] DR VICTOR M ORTIZ MD [facility] 10-31-2023 10:30-0400 Body height [address] VICTOR M ORTIZ MD [facility] 10-31-2023 10:30-0400 Body weight [address] VICTOR M ORTIZ MD [facility] 10-31-2023 10:30-0400 Body weight 20.44 kg/m2 DR VICTOR M ORTIZ MD [facility] 10-31-2023 10:25-0400 Respiratory Rate - Anes 28 br/min DR VICTOR M ORTIZ MD [facility] 10-31-2023 10:20-0400 Respiratory Rate - Anes 40 br/min DR VICTOR M ORTIZ MD [facility] 10-31-2023 10:15-0400 Respiratory Rate - Anes 30 br/min DR VICTOR M ORTIZ MD [facility] 10-31-2023 10:04-0400 Body height [address] VICTOR M ORTIZ MD [facility] 10-31-2023 10:04-0400 Body temperature 97.88 [degF] DR VICTOR M ORTIZ MD [facility] 10-31-2023 10:04-0400 Body weight [address] VICTOR M ORTIZ MD [facility] 10-31-2023 10:04-0400 Heart rate 68 /min DR VICTOR M ORTIZ MD [facility] 07-04-2023 23:00-0400 Body temperature 97.8 [degF] [facility] 07-04-2023 23:00-0400 Diastolic blood pressure 89 mm[Hg] [facility] 07-04-2023 23:00-0400 Heart rate 78 /min [facility] 07-04-2023 23:00-0400 Respiratory rate 16 /min [facility] 07-04-2023 23:00-0400 SaO2% (BldA) [Mass fraction] 99 % [facility] 07-04-2023 23:00-0400 Systolic blood pressure 122 mm[Hg] [facility] 07-04-2023 19:59-0400 Body height 162.56 cm [facility] 07-04-2023 19:59-0400 Body mass index (BMI) [Ratio] 21.9 kg/m2 [facility] 07-04-2023 19:59-0400 Body weight 57.92 kg [facility] 12-26-2022 01:43-0400 Heart rate 75 /min [facility] 12-26-2022 01:43-0400 Respiratory rate 15 /min [facility] 12-26-2022 01:43-0400 SaO2% (BldA) [Mass fraction] 98 % [facility] 12-26-2022 00:00-0400 Diastolic blood pressure 77 mm[Hg] [facility] 12-26-2022 00:00-0400 Systolic blood pressure 129 mm[Hg] [facility] 12-25-2022 21:20-0400 Body height 162.56 cm [facility] 12-25-2022 21:20-0400 Body mass index (BMI) [Ratio] 21.1 kg/m2 [facility] 12-25-2022 21:20-0400 Body temperature 97.9 [degF] [facility] 12-25-2022 21:20-0400 Body weight 55.8 kg [facility] 03-09-2022 10:45-0500 Respiratory rate 16 /min [facility] Work Phone: 03-09-2022 09:19-0500 Body height 162.56 cm [facility] Work Phone: 03-09-2022 09:19-0500 Body mass index (BMI) [Ratio] 21.2 kg/m2 [facility] Work Phone: 03-09-2022 09:19-0500 Body temperature 97.8 [degF] [facility] Work Phone: 03-09-2022 09:19-0500 Body weight 56.24 kg [facility] Work Phone: 03-09-2022 09:19-0500 Diastolic blood pressure 68 mm[Hg] [facility] Work Phone: 03-09-2022 09:19-0500 Heart rate 86 /min [facility] Work Phone: 03-09-2022 09:19-0500 SaO2% (BldA) [Mass fraction] 100 % [facility] Work Phone: 03-09-2022 09:19-0500 Systolic blood pressure 119 mm[Hg] [facility] Work Phone: 12-17-2021 03:42-0400 Diastolic blood pressure 67 mm[Hg] [facility] Work Phone: 12-17-2021 03:42-0400 Heart rate 70 /min [facility] Work Phone: 12-17-2021 03:42-0400 Respiratory rate 18 /min [facility] Work Phone: 12-17-2021 03:42-0400 SaO2% (BldA) [Mass fraction] 97 % [facility] Work Phone: 12-17-2021 03:42-0400 Systolic blood pressure 98 mm[Hg] [facility] Work Phone: 12-16-2021 22:32-0400 Body height 162.56 cm [facility] Work Phone: 12-16-2021 22:32-0400 Body mass index (BMI) [Ratio] 21.4 kg/m2 [facility] Work Phone: 12-16-2021 22:32-0400 Body temperature 98.5 [degF] [facility] Work Phone: 12-16-2021 22:32-0400 Body weight 56.69 kg [facility] Work Phone: 11-13-2021 17:52-0400 Respiratory rate 16 /min [facility] Work Phone: 11-13-2021 15:41-0400 Body height 162.56 cm [facility] Work Phone: 11-13-2021 15:41-0400 Body mass index (BMI) [Ratio] 21.2 kg/m2 [facility] Work Phone: 11-13-2021 15:41-0400 Body temperature 97.6 [degF] [facility] Work Phone: 11-13-2021 15:41-0400 Body weight 56.24 kg [facility] Work Phone: 11-13-2021 15:41-0400 Diastolic blood pressure 70 mm[Hg] [facility] Work Phone: 11-13-2021 15:41-0400 Heart rate 88 /min [facility] Work Phone: 11-13-2021 15:41-0400 SaO2% (BldA) [Mass fraction] 98 % [facility] Work Phone: 11-13-2021 15:41-0400 Systolic blood pressure 128 mm[Hg] [facility] Work Phone: 11-02-2021 22:04-0400 Diastolic blood pressure 78 mm[Hg] [facility] Work Phone: 11-02-2021 22:04-0400 Heart rate 98 /min [facility] Work Phone: 11-02-2021 22:04-0400 Respiratory rate 17 /min [facility] Work Phone: 11-02-2021 22:04-0400 SaO2% (BldA) [Mass fraction] 98 % [facility] Work Phone: 11-02-2021 22:04-0400 Systolic blood pressure 130 mm[Hg] [facility] Work Phone: 11-02-2021 20:56-0400 Body height 162.56 cm [facility] Work Phone: 11-02-2021 20:56-0400 Body mass index (BMI) [Ratio] 20.5 kg/m2 [facility] Work Phone: 11-02-2021 20:56-0400 Body temperature 98 [degF] [facility] Work Phone: 11-02-2021 20:56-0400 Body weight 54.43 kg [facility] Work Phone: Encounters Encounter Date Encounter Type Care Provider Facility Start: 11-23-2024 [facility] Start: 11-23-2024 End: 11-23-2024 ambulatory [facility] Facility:[facility] Start: 11-23-2024 End: 11-23-2024 Quang Myles DO -Endoscopy Work Phone: Start: 11-21-2024 End: 11-21-2024 Office outpatient visit 40 minutes Radu Kay MD Work Phone: [facility] Comment on above: History of pulmonary embolism (Primary Dx); Cardiomyopathy, hypertrophic nonobstructive (Multi); Tobacco use; Mild intermittent asthma without complication ([facility]) Start: 11-21-2024 End: 11-21-2024 ambulatory [place] Angelo KAY [facility] Start: 10-17-2024 End: 10-17-2024 Dr. Mercy Bishop MD -[facility] Work Phone: Start: 10-17-2024 End: 10-17-[address] Dex Wilkinson MD Work Phone: [facility] Start: 10-03-2024 End: 10-03-[address] Dex Wilkinson MD Work Phone: [facility] Start: 10-03-2024 End: 10-03-2024 Sujatha Olea [facility] Work Phone: Start: 09-24-2024 End: 09-24-2024 ambulatory DEEPIKA MAN [facility] Start: 09-24-2024 End: 09-24-2024 Telemedicine consultation with patient Deepika Raymondington PharmD Work Phone: [facility] Comment on above: Cardiomyopathy, hype rtrophic nonobstructive (Multi) Start: 09-20-2024 End: 09-23-2024 Evaluation and management of inpatient Rocky Everett DO Work Phone: [facility] 3 Comment on above: Acute exacerbation o f chronic heart failure (Primary Dx); Systolic congestive heart failure, unspecified HF chronicity; Pneumonia of left lower lobe due to infectious organism; Other constipation Start: 09-18-2024 End: 09-18-2024 Bárbara BUCKLEY -[facility] Work Phone: Start: 09-18-2024 End: 09-18-[address] Dex Wilkinson MD Work Phone: -[facility] Start: 09-14-2024 Dr. Emerson Sierra MD -[facility] Work Phone: Start: 09-13-2024 ambulatory Dex Cohn ty:[facility] Start: 09-13-2024 Dr. Emerson Sierra MD [facility] Work Phone: Start: 09-12-2024 Quang Myles DO -[facility] Start: 09-12-2024 Dr. Emerson Sierra MD [facility] Work Phone: Start: 09-11-2024 End: 09-14-2024 ambulatory Sergio Umaña Facility:[facility] Start: 09-11-2024 End: 09-14-[address] Dex Wilkinson MD Work Phone: [facility] Start: 09-11-2024 Evaluation and management of inpatient Dr. Dex Wilkinson MD Work Phone: [facility] Start: 09-11-2024 End: 09-14-2024 Dr. Sergio Umaña DO -[facility] Work Phone: Start: 08-28-2024 End: 08-28-[address] Dex Wilkinson MD Work Phone: [facility] Work Phone: Start: 08-28-2024 End: 08-28-2024 Quang Myles DO -[facility] Work Phone: Start: 08-27-2024 End: 08-28-[address] Dex Wilkinson MD Work Phone: [facility] Work Phone: Start: 08-27-2024 End: 08-27-2024 Quang Myles DO -[facility] Work Phone: Start: 08-27-2024 End: 08-27-2024 ambulatory Quang Myles Facility:[facility] Start: 08-24-2024 Dr. Taylor Tejeda MD - [facility] Work Phone: Start: 08-23-2024 Quang Myles DO -[facility] Start: 08-23-2024 Dr. Taylor Tejeda MD - [facility] Work Phone: Start: 08-22-2024 Dr. Taylor Tejeda MD - [facility] Work Phone: Start: 08-21-2024 Quang Myles DO -[facility] Start: 08-20-2024 Quang Myles DO -[facility] Start: 08-20-2024 ambulatory Lopez Larios Fac ility:[facility] Start: 08-20-2024 End: 08-24-2024 Evaluation and management of inpatient Dr. Dex Wilkinson MD Work Phone: [facility] Work Phone: Start: 08-20-2024 End: 08-24-2024 Dr. Lopez Larios DO -Progressive Care Unit Work Phone: Start: 08-15-2024 End: 08-23-2024 ambulatory [facility] Start: 08-15-2024 End: 08-15-2024 Office outpatient new 60 minutes Radu Kay MD Work Phone: [facility] Comment on above: Hypertrophic cardiom egaly (Primary Dx); Chronic heart failure with preserved ejection fraction (HFpEF); Cardiomyopathy, hypertrophic nonobstructive (Multi); History of pulmonary embolism; Other ascites; Atypical chest pain Start: 08-15-2024 End: 08-15-2024 Subsequent hospital visit by physician Clayton Shine220 Cr Nonv1 Holter/Ecg Resource [facility] Comment on above: Heart failure, unspe cified Start: 08-15-2024 End: 08-15-2024 ambulatory [facility] Start: 08-11-2024 End: 08-11-2024 Dr. Dex Wilkinson MD Work Phone: -Emergency Department Work Phone: Start: 08-11-2024 End: 08-11-2024 Emergency department patient visit Dr. Dex Wilkinson MD Work Phone: [facility] Work Phone: Start: 08-10-2024 End: 08-10-2024 ambulatory Suman Coburn Clinical Communication Start: 08-10-2024 End: 08-10-2024 Patient encounter procedure Suman Coburn Clinical Communication Start: 08-09-2024 End: 08-09-[address] Dex Wilkinson MD Work Phone: [facility] Work Phone: Start: 08-09-2024 End: 08-09-2024 Quang Myles DO -Laboratory Specimen Work Phone: Start: 08-08-2024 End: 08-08-[address] Dex Wilkinson MD Work Phone: [facility] Work Phone: Start: 08-08-2024 End: 08-08-2024 Quang Myles DO -Laboratory Work Phone: Start: 08-08-2024 End: 08-08-2024 Patient encounter procedure Quang Myles DO -[facility] Work Phone: Start: 08-08-2024 End: 08-08-2024 Quang Myles DO -[facility] Work Phone: Start: 08-08-2024 End: 08-09-[address] Dex Wilkinson MD Work Phone: [facility] Work Phone: Start: 08-08-2024 End: 08-08-2024 ambulatory Quang Myles Facility:[facility] Start: 07-30-2024 End: 07-30-2024 Patient Outreach Quynh [facility] Work Phone: Pharmacy Comment on above: Transition Of Care ( TCM Pharmacy-Hospital discharge 07/27/24/) Start: 07-26-2024 End: 07-26-2024 Evaluation and management of inpatient Pulm Fct Lab J-2 Pulmonary Medicine Comment on above: Preoperative examina tion, unspecified (Primary Dx) Start: 07-26-2024 End: 07-26-2024 Preprocedural examination done Pulm J-2 [facility] Start: 07-25-2024 End: 07-25-2024 Evaluation and management of inpatient Ip Transesophageal Echo Cardiology Comment on above: History of transesop hageal echocardiography (MICKI) (Primary Dx) Start: 07-24-2024 End: 07-27-2024 Evaluation and management of inpatient MERYC BISHOP Facility:[facility] Start: 07-24-2024 Non-patient / Non-visit Dr. Willian Salcedo pia DO -[facility] Work Phone: Start: 07-24-2024 Dr. Willian Ovalles DO -[facility] Work Phone: Start: 07-23-2024 ambulatory Breann Loera Facility: [facility] Start: 07-23-2024 ambulatory Sergio Knowles ty:[facility] Start: 07-23-2024 Non-patient / Non-visit Dr. Mercy Bishop MD -[facility] Start: 07-23-2024 Dr. Mercy Bishop MD [facility] Start: 07-22-2024 Non-patient / Non-visit Dr. Saman ureña MD [facility] Start: 07-22-2024 Dr. Saman Clay MD [facility] Start: 07-22-2024 Non-patient / Non-visit Dr. Willian Salcedo pia DO -[facility] Work Phone: Start: 07-22-2024 Dr. Willian Ovalles DO -[facility] Work Phone: Start: 07-21-2024 Non-patient / Non-visit Dr. Saman ureña MD [facility] Start: 07-21-2024 Dr. Saman Clay MD [facility] Start: 07-21-2024 Non-patient / Non-visit Dr. Willian ritter DO -[facility] Work Phone: Start: 07-21-2024 Dr. Willian Ovalles DO -[facility] Work Phone: Start: 07-21-2024 ambulatory Willian Ovalles Facility:[facility] Start: 07-21-2024 End: 07-24-2024 Dr. [facility] Work Phone: Start: 07-20-2024 End: 07-24-2024 Evaluation and management of inpatient Dr. Sergio Umaña DO -[facility] Work Phone: Start: 07-12-2024 ambulatory Quang Myles [place] Start: 07-12-2024 Non-patient / Non-visit Quang Barragan nd DO -[facility] Start: 07-12-2024 Quang Myles DO -[facility] Start: 07-12-2024 End: 07-12-2024 Admission to same day surgery center Quang Myles DO -Endoscopy Work Phone: Start: 07-12-2024 End: 07-12-2024 Quang Myles DO -Endoscopy Work Phone: Start: 07-12-2024 End: 07-12-2024 ambulatory Quang Ada Facility:[facility] Start: 07-10-2024 End: 07-10-2024 Patient encounter procedure Xochitl BUCKLEY -[facility] Work Phone: Start: 07-10-2024 End: 07-10-2024 Xochitl BUCKLEY [facility] Work Phone: Start: 07-10-2024 End: 07-10-2024 ambulatory Xochitl BUCKLEY [place] Start: 07-06-2024 End: 07-06-2024 Evaluation and management of inpatient UNKNOWN PROVIDER Facility:[facility] Start: 07-04-2024 End: 07-08-2024 Evaluation and management of inpatient UNKNOWN PROVIDER Facility:[facility] Start: 07-04-2024 End: 07-04-2024 ambulatory Jose Francisco Santamaria [place] Start: 07-04-2024 End: 07-04-[address] Jose Francisco Santamaria MD -[facility] Work Phone: Start: 07-04-2024 End: 07-04-2024 Dr. Jose Francisco Santamaria MD -[facility] Work Phone: Start: 07-03-2024 End: 07-03-2024 Emergency department patient visit Dr. Nabor Frey DO -Emergency Department Work Phone: Start: 07-03-2024 End: 07-03-2024 Patient encounter procedure Bárbara BUCKLEY -[facility] Work Phone: Start: 07-03-2024 End: 07-03-2024 Dr. Nabor Frey DO -Emergency Departme nt Work Phone: Start: 07-03-2024 End: 07-03-2024 ambulatory [facility] Facility:[facility] Start: 07-01-2024 End: 07-01-2024 Babarearle Wood DO -Emergency Departmen t Work Phone: Start: 07-01-2024 End: 07-01-2024 Emergency department patient visit Dr. Dex Wilkinson MD Work Phone: -Emergency Department Work Phone: Start: 07-01-2024 End: 07-01-2024 ambulatory Ella Cohen RN [facility] Start: 07-01-2024 End: 07-01-2024 Patient encounter procedure Ella Cohen RN [facility] Start: 05-15-2024 End: 05-21-2024 Evaluation and management of inpatient UNKNOWN PROVIDER Facility:[facility] Start: 05-11-2024 End: 05-12-2024 Dr. Bimal Cortez MD -Emergency Departm ent Work Phone: Start: 05-11-2024 End: 05-12-2024 Emergency department patient visit Dr. Bimal Cortez MD -Emergency Department Work Phone: Start: 03-28-2024 End: 03-28-2024 ambulatory [facility] Facility:[facility] Start: 03-28-2024 End: 03-28-[address] Jose Francisco Santamaria MD -[facility] Work Phone: Start: 10-31-2023 End: 10-31-[address] VICTOR M ORTIZ MD Facility:[facility] Start: 10-31-2023 End: 10-31-[address] VICTOR M ORTIZ MD [facility] Start: 07-04-2023 End: 07-04-2023 [facility] Start: 07-04-2023 ambulatory Angela Krishna RN [facility] Start: 07-04-2023 Patient encounter procedure Angela Krishna RN [facility] Start: 12-25-2022 End: 12-26-2022 [facility] Start: 03-09-2022 End: 03-09-2022 Emergency department patient visit [facility]Emergency Department Start: 12-16-2021 End: 12-17-2021 [facility] Start: 11-13-2021 End: 11-13-2021 [facility] Start: 11-02-2021 End: 11-02-2021 [facility] Start: 08-25-2017 End: 08-25-2017 Ambulatory [facility] Procedures Date Procedure Procedure Detail Performing Clinician Start: 11-23-[address] Dex Wilkinson MD Work Phone: Start: 11-23-[address] Dex Wilkinson MD Work Phone: Start: 11-23-[address] Dex Wilkinson MD Work Phone: Start: 09-23-2024 Basic metabolic panel calcium total Rishabh El MD Work Phone: Start: 09-22-2024 Ct abdomen & pelvis w/o contrast material Rishabh El MD Work Phone: Start: 09-22-2024 Assay of lactate Rishabh El MD Work Phone: Start: 09-22-2024 Basic metabolic panel calcium total Boo Saeed MD Work Phone: Start: 09-21-2024 Ct abdomen & pelvis w/contrast material Rocky Everett DO Work Phone: Start: 09-21-2024 Ct angiography chest w/contrast/noncontrast Rocky Everett DO Work Phone: Start: 09-21-2024 Assay of troponin quantitative Rocky Everett DO Work Phone: Start: 09-21-2024 Urinalysis complete W Reflex Culture panel - Urine Rocky Everett DO Work Phone: Start: 09-21-2024 Urnls dip stick/tablet reagent auto microscopy Rocky Everett DO Work Phone: Start: 09-21-2024 Comprehensive metabolic panel Rocky Everett DO Work Phone: Start: 09-21-2024 Troponin I.cardiac panel - Serum or Plasma by High sensitivity method Rocky Everett DO Work Phone: Start: 09-14-2024 Blood count smear mcrscp w/mnl difrntl wbc count Dr. Dex Wilkinson MD Work Phone: Start: 09-14-[address] Kd Wilkinson MD Work Phone: Start: 09-14-2024 Mean corpuscular hemoglobin concentration determination Dr. Dex Wilkinson MD Work Phone: Start: 09-14-2024 Nucleated red blood cell count procedure Dr. Dex Wilkinson MD Work Phone: Start: 09-14-2024 Platelet mean volume determination Dr. Dex Wilkinson MD Work Phone: Start: 09-13-2024 Serum inorganic phosphate measurement Dr. Dex Wilkinson MD Work Phone: Start: 09-12-2024 Computed tomography of abdomen and pelvis with contrast Dr. Dex Wilkinson MD Work Phone: Start: 09-12-[address] Dex Wilkinson MD Work Phone: Start: 09-11-2024 Computed tomography of abdomen and [...] Dex Wilkinson MD Work Phone: Start: 08-08-2024 GARMENT MANUFACTURER antibody measurement Dr. Dex Wilkinson MD Work Phone: Start: 08-08-[address] Dex Wilkinson MD Work Phone: Start: 08-08-[address] Dex Wilkinson MD Work Phone: Start: 08-08-[address] Dex Wilkinson MD Work Phone: Start: 07-24-2024 Antibody screen [facility] Comment on above: Order Comment: Specimen Type: BLOOD SPEC IMEN Ordering Facility: [facility] Address: [address] [place] [address] Performed By: #### 5 [id number] #### [facility] CLIA [id number] [address] [place] [address] [place] Start: 07-23-2024 Blood [...] Dex Wilkinson MD Work Phone: Start: 07-12-2024 End: 07-12-[address] Dex Wilkinson MD Work [...] Start: 07-03-2024 Platelet mean volume determination Dr. eDx Wilkinson MD Work Phone: Start: 07-03-2024 Triacylglycerol [...] Mammography Radu Kay MD Work Phone: H/O: surgery Dr. Dex Wilkinson MD Work Phone: H/O: surgery Dr. Emerson Lopez nd, MD H/O: tubal ligation DR LONI ORTIZ MD [...] Treatment Date Care Activity Detail Author Start: 07-12-2034 Screening for malignant neoplasm of colon [facility] Start: 09-15-2029 Zoster Vaccines (1 of 2) Zoster Vaccines (1 of 2) [facility] Start: 09-23-2025 Creatinine measurement Creatinine Level [facility] Start: 09-23-2025 Diabetes mellitus screening Diabetes Screening [facility] Start: 09-23-2025 Potassium measurement Potassium Level [facility] Start: 09-21-2025 Echocardiography Echocardiogram [facility] Start: 07-25-2025 Diabetes mellitus screening Diabetes Screening [facility] Start: 01-23-2025 End: 01-23-2025 Patient encounter procedure 01/23/2025 2:00 PM EST Office Visit [facility] [address] [place] [address] Radu Kay MD [address] [facility] [address] [place] [address] [facility] Start: 12-05-2024 End: 11-21-2025 Basic metabolic 1999 panel - Serum or Plasma Basic metabolic panel Lab Routine Cardiomyopathy, hypertrophic nonobstructive (Multi) History of pulmonary embolism Expected: 12/05/2024 (Approximate), Expires: 11/21/2025 [facility] Service Area Work Phone: Comment on above: Expected: 12/05/2024 (Approximate), Expi res: 11/21/2025 Start: 12-05-2024 End: 11-21-2025 Natriuretic peptide B [Mass/volume] in Blood B-Type Natriuretic Peptide Lab Routine Cardiomyopathy, hypertrophic nonobstructive (Multi) History of pulmonary embolism Expected: 12/05/2024, Expires: 11/21/2025 [facility] Work Phone: Comment on above: Expected: 12/05/2024, Expires: Start: 11-23-2024 Patient discharge [facility] Start: 11-21-2024 End: 11-21-2025 Basic metabolic 2000 panel - Serum or Plasma Basic metabolic panel Lab Routine Cardiomyopathy, hypertrophic nonobstructive (Multi) History of pulmonary embolism Expected: 11/21/2024 (Approximate), Expires: 11/21/2025 [facility] Work Phone: Comment on above: Expected: 11/21/2024 (Approximate), Expi res: 11/21/2025 Start: 11-21-2024 End: 11-21-2025 Natriuretic peptide B [Mass/volume] in Blood B-Type Natriuretic Peptide Lab Routine Cardiomyopathy, hypertrophic nonobstructive (Multi) History of pulmonary embolism Expected: 11/21/2024 (Approximate), Expires: 11/21/2025 [facility] Work Phone: Comment on above: Expected: 11/21/2024 (Approximate), Expi res: 11/21/2025 Start: 11-21-2024 End: 11-21-2024 Patient encounter procedure 11/21/2024 10:30 AM EDT Office Visit [facility] [address] [facility] [address] [place] [id number] Radu Kay MD [address] [facility] [address] [place] [address] [facility] Start: 11-12-2024 COVID-19 Vaccine ( season) COVID-19 Vaccine ( season) [facility] Start: 11-12-2024 Influenza vaccination [facility] Start: 10-29-2024 End: 10-29-2024 Telemedicine consultation with patient 10/29/2024 2:40 PM EDT Telemedicine [facility] [address] [place] [address] Deepika Man, PharmD [address] [facility] [place] [address] [facility] Start: 09-24-2024 End: 09-24-2024 Telemedicine consultation with patient 09/24/2024 2:40 PM EDT Telemedicine [facility] [address] [place] [address] Deepika Man, PharmD [address] [place] [address] [facility] Start: 09-14-2024 Patient discharge [facility] Start: 09-12-2024 Application of intermittent pneumatic compression device [facility] Start: 09-12-2024 Following clinical pathway protocol [facility] Start: 09-12-2024 Assessment of risk of venous thromboembolism [facility] Start: 09-12-2024 Insertion of catheter into peripheral vein [facility] Start: 09-12-2024 Measuring intake and output [facility] Start: 09-12-2024 Oxygen therapy [facility] Start: 09-12-2024 Providing care according to standard [facility] Start: 09-12-2024 Provision of activity privileges [facility] Start: 09-12-2024 Referral to gastroenterology service [facility] Start: 09-12-2024 Referral to service [facility] Start: 09-12-2024 [facility] Start: 09-11-2024 Verification routine [facility] Start: 09-11-2024 Admission procedure [facility] Start: 09-11-2024 Hospital admission, emergency, from emergency room, medical nature [facility] Start: 08-27-2024 Magnetic resonance cholangiopancreatography [facility] Start: 08-27-2024 MR Biliary ducts and Pancreatic duct [facility] Start: 08-24-2024 Patient discharge [facility] Start: 08-22-2024 Provision of activity privileges [facility] Start: 08-20-2024 Following clinical pathway protocol [facility] Start: 08-20-2024 Ambulation without limitation [facility] Start: 08-20-2024 Assessment of risk of venous thromboembolism [facility] Start: 08-20-2024 Insertion of catheter into peripheral vein [facility] Start: 08-20-2024 Measuring intake and output [facility] Start: 08-20-2024 Providing care according to standard [facility] Start: 08-20-2024 Referral to gastroenterology service [facility] Start: 08-20-2024 [facility] Start: 08-20-2024 Hospital admission, emergency, from emergency room, medical nature [facility] Start: 08-20-2024 Verification routine [facility] Start: 08-20-2024 Admission procedure [facility] Start: 08-20-2024 Patient [facility] Start: 08-11-2024 [facility] Start: 08-09-2024 [facility] Start: 08-09-2024 Ova OR parasites identification [facility] Start: 08-08-2024 [facility] Start: 07-26-2024 End: 07-26-2024 Patient encounter procedure Pulmonary Medicine Comment on above: NEEDS TRANSPORT IP AO, RA, NO DRIPS, REG WC, NO PRECAUTIONS/FEVERS //KP Start: 07-24-2024 Oxygen therapy [facility] Start: 07-24-2024 Patient discharge [facility] Start: 07-23-2024 Referral to gastroenterology service [facility] Start: 07-22-2024 Bacteria identified in Blood by Culture Blood Culture [facility] Start: 07-22-2024 End: 07-22-2024 [facility] Start: 07-22-2024 Inhalation therapy procedure [facility] Start: 07-21-2024 Provision of activity privileges [facility] Start: 07-21-2024 Following clinical pathway protocol [facility] Start: 07-21-2024 Assessment of risk of venous thromboembolism [facility] Start: 07-21-2024 Catheterization of vein [facility] Start: 07-21-2024 Insertion of catheter into peripheral vein [facility] Start: 07-21-2024 Measuring intake and output [facility] Start: 07-21-2024 Providing care according to standard [facility] Start: 07-21-2024 Provision of activity privileges [facility] Start: 07-21-2024 Referral to metal crafts teacher [facility] Start: 07-21-2024 Referral to service [facility] Start: 07-21-2024 [facility] Start: 07-21-2024 Verification routine [facility] Start: 07-21-2024 Admission procedure [facility] Start: 07-20-2024 Hospital admission, emergency, from emergency room, medical nature [facility] Start: 07-20-2024 [facility] Start: 07-12-2024 Colonoscopy w/biopsy single/multiple [facility] Start: 07-12-2024 Endoscopy upper small intestine w/biopsy [facility] Start: 07-12-2024 Patient discharge [facility] Start: 07-03-2024 [facility] Start: 07-01-2024 [facility] Start: 05-12-2024 [facility] Start: 02-08-2024 Screening for malignant neoplasm of cervix Cervical Cancer Screening [facility] Start: 11-13-2023 Covid-19 Vaccine () Covid-19 Vaccine () [facility] Start: 07-04-2023 [facility] Start: 12-26-2022 [facility] Start: 12-26-2022 [facility] Start: 12-25-2022 [facility] Start: 11-07-2022 Urine microalbumin profile DTaP,Tdap,Td Vaccine (2 - Td or Tdap) [facility] Start: 12-16-2021 [facility] Work Phone: Start: 2019 Screening for malignant neoplasm of breast [facility] Start: 04-05-2012 Pneumococcal vaccination Pneumococcal Vaccine (2 of 2 - PCV) [facility] Start: 04-05-2012 Pneumococcal Vaccine: Pediatrics and At-Risk Adult Patients (2 of 2 - PCV) Pneumococcal Vaccine: Pediatrics and At-Risk Adult Patients (2 of 2 - PCV) [facility] Start: 09-15-2006 HPV Vaccines (1 - 3-dose standard series) HPV Vaccines (1 - 3-dose standard series) [facility] Start: 09-15-2001 DTaP/Tdap/Td Vaccines (1 - Tdap) DTaP/Tdap/Td Vaccines (1 - Tdap) [facility] Start: 09-15-2000 Screening for malignant neoplasm of cervix [facility] Start: 09-15-1998 Hepatitis A Vaccines (1 of 2 - Risk 2-dose series) Hepatitis A Vaccines (1 of 2 - Risk 2-dose series) [facility] Start: 09-15-1998 Hepatitis B Vaccine (1 of 3 - 19+ 3-dose series) Hepatitis B Vaccine (1 of 3 - 19+ 3-dose series) [facility] Start: 09-15-1998 Hepatitis B Vaccines (1 of 3 - 19+ 3-dose series) Hepatitis B Vaccines (1 of 3 - 19+ 3-dose series) [facility] Start: 09-15-1997 Annual PCP Team Chronic Disease Visit Annual PCP Team Chronic Disease Visit [facility] Start: 09-15-1997 Depression Screening Depression Screening [facility] Start: 09-15-1997 Hepatitis C screening Hepatitis C Screening [facility] Start: 09-15-1997 HIV screening HIV Screening [facility] Start: 09-15-1980 MMR Vaccines (1 of 1 - Standard series) MMR Vaccines (1 of 1 - Standard series) [facility] Start: 1979 Creatinine measurement Creatinine Level [facility] Start: 1979 Echocardiography Echocardiogram [facility] Start: 1979 HIV screening HIV Screening [facility] Start: 1979 Lipid panel Lipid Panel [facility] Start: 1979 Potassium measurement Potassium Level [facility] Start: 1979 Screening for malignant neoplasm of colon [facility] Start: 1979 Yearly Adult Physical Yearly Adult Physical [facility] Angiotensin converti ng enzyme [Enzymatic activity/volume] in Serum or Plasma [facility] Antibody to lupus [place] protein measurement [facility] Antibody to SS-A measurement [facility] Blood ammonia measurement [facility] reactive protein [ Mass/volume] in Serum or Plasma [facility] CBC W Auto Different ial panel - Blood [facility] CBC W Auto Different ial panel - Blood [facility] Celiac disease screen [facility] Ceruloplasmin [Mass/ volume] in Serum or Plasma [facility] Clam IgE Ab [Units/v olume] in Serum [facility] Clostridioides diffi cile DNA [Presence] in Unspecified specimen by BIMAL with probe detection [facility] Codfish IgE Ab [Unit s/volume] in Serum [facility] Colonoscopy [facility] Comprehensive metabo lic 1999 panel - Serum or Plasma [facility] Comprehensive metabo lic 1999 panel - Serum or Plasma [facility] Copper [Moles/volume ] in Serum or Plasma [facility] [place] IgE Ab [Units/v olume] in Serum [facility] Cow milk IgE Ab [Uni ts/volume] in Serum [facility] DNA double strand Ab [Units/volume] in Serum [facility] ECG 12 lead ECG 12 lead ECG Routine Heart failure, unspecified 08/23/2024 12:53 PM EDT [facility] Work Phone: Egg white RAST [facility] Electrocardiogram, 1 2-lead PRN ACS symptoms Electrocardiogram, 12-lead PRN ACS symptoms ECG Routine As needed until discontinued starting 09/21/2024 [facility] Work Phone: Comment on above: As needed until discontinued starting Electrocardiogram, 1 2-lead PRN ACS symptoms Electrocardiogram, 12-lead PRN ACS symptoms ECG Routine As needed until discontinued starting 09/21/2024 [facility] Work Phone: Comment on above: As needed until discontinued starting Erythrocyte sedimentation rate [facility] End: 09-20-2024 Extra Urine Garcia Tube Extra Urine Garcia [facility] Lab Timed Once for 1 Occurrences starting 09/20/2024 until 09/20/2024 [facility] Work Phone: Comment on above: Once for 1 Occurrences starting 09/21/19 until 09/20/2024 Ferritin [Mass/volum e] in Serum or Plasma [facility] Gastrin [Mass/volume ] in Serum or Plasma [facility] Giardia lamblia Ag [ Presence] in Stool by Immunoassay [facility] Haptoglobin [Mass/vo lume] in Serum or Plasma [facility] Hemoglobin A1c/Hemog lobin.total in Blood [facility] IgG subclass panel [ Mass/volume] - Serum [facility] Immunoglobulin measurement [facility] Iron [Mass/mass] in Unspecified specimen [facility] Lactate dehydrogenas e measurement [facility] Lactoferrin [Presenc e] in Stool by Immunoassay [facility] Magnesium measurement [facility] Magnesium measurement [facility] MR Biliary ducts and Pancreatic duct WO [facility] MRI of small intestine [facility] Nucleic acid assay [facility] Ova OR parasites identification [facility] Patient Education [facility] Work Phone: Patient referral [facility] Work Phone: Peanut IgE Ab [Units /volume] in Serum [facility] Protein measurement [facility] Prothrombin time [facility] Radionuclide gastric emptying study [facility] Reticulocyte count [facility] Scallop [facility] Serum immunofixation [facility] Sesame seed [facility] Shrimp IgE Ab [Units /volume] in Serum [facility] Soybean IgE Ab [Unit s/volume] in Serum [facility] Thyroid stimulating hormone measurement [facility] End: 09-20-2024 Urinalysis complete W Reflex Culture panel - Urine [facility] Service Area Work Phone: Comment on above: Once (Lab) for 1 Occurrences starting until 09/20/2024 US Heart [facility] End: 09-21-2024 US Heart Transthoracic [facility] Service Area Work Phone: Comment on above: Once for 1 Occurrences starting 09/22/19 until 09/21/2024 [place] [facility] Wheat IgE Ab [Units/ volume] in Serum [facility] Immunizations Immunization Date Immunization Notes [facility] Provider [facility]-2020 Covid (Moderna) Dr. Dex Wilkinson MD Work Phone: [facility] 07-01-2020 Covid (Moderna) Dr. Dex Wilkinson MD Work Phone: [facility] 01-28-2020 influenza virus vacc ine, unspecified formulation Ip [facility] 01-12-2014 influenza, seasonal, injectable, preservative free Ip [facility] Work Phone: 01-12-2014 influenza virus vacc ine, unspecified formulation Radu Kay MD Work Phone: [facility] Work Phone: 01-03-2013 influenza virus vacc ine, unspecified formulation [facility] 04-05-2011 pneumococcal polysaccharide vaccine, 23 valent [facility] 12-16-2008 influenza virus vacc ine, unspecified formulation [facility] Work Phone: Payers Date Payer Category Payer Managed Care (Private) [id number] 2024 Unknown [id number] 2024 Self-pay 2023 Blue Cross Blue [facility] BLUE ACCE PPO Member Subscriber Plan / Payer (Effective 2023-Present) Name: Michelle Mitchell Relation to Subscriber: Self Name: Michelle Mitchell Payer ID: [id number] ([facility]) Type: PPO Address: [place] [id number] 2023 Unknown [id number] 1980 Unknown [id number] 840.1.375490.3.579.2. 62 1979 Unknown [id number] .1.613529.3.579.2. 1242 1979 Unknown [id number] 840.1.644980.3.579.2. 1244 1979 Unknown [id number] 2.840.1.246028.3.579.2. 1246 1979 Unknown [id number] 2.840.1.121116.3.579.21246 1979 Unknown [id number] 2.16.840.1.447693.3.579.2. 1247 Unknown [id number] Unknown [id number] 2.16.840.1.753845.3.579.2. 462 Unknown [id number] 2.16.840.1.080368.3.579.2. 462 Unknown [id number] 2.16.840.1.445938.3.579.2. 462 Unknown [id number] 2.16.840.1.444716.3.579.2. 462 Unknown [id number] 2.16.840.1.842264.3.579.2. 462 Unknown [id number] 2.16.840.1.724230.3.579.2. 462 Unknown [id number] 2.840.1.943268.3.579.2. 462 Unknown [id number] 2.840.1.397122.3.579.2. 462 Unknown [id number] 2.16.840.1.170041.3.579.2. 462 Unknown [id number] 2.16.840.1.368947.3.579.2. 462 Unknown [id number] 2.16.840.1.581608.3.579.2. 462 Unknown [id number] 2.16840.1.524573.3.579.2. 462 Unknown [id number] 2.16.840.1.326369.3.579.2. 462 Unknown [id number] 2.16.840.1.942708.3.579.2. 462 Unknown [id number] 2.16.840.1.621916.3.579.2. 462 Unknown [id number] 2.16.840.1.356575.3.579.2. 462 Unknown [id number] 2.16.840.1.979996.3.579.2. 462 Unknown [id number] 2.16.840.1.582050.3.579.2. 462 Unknown [id number] 2.16.840.1.930337.3.579.2. 462 Unknown [id number] 2.16.840.1.920028.3.579.2. 462 Unknown [id number] 2.16840.1.122944.3.579.2. 462 Unknown [id number] 2.16840.1.269135.3.579.2. 462 Unknown [id number] 2.840.1.329003.3.579.2. 462 Unknown [id number] 2.840.1.838543.3.579.2. 462 Unknown [id number] 2.840.1.663961.3.579.2. 462 Unknown [id number] 2.840.1.342252.3.579.2. 462 Unknown [id number] 2.840.1.970025.3.579.2. 462 Unknown [id number] 2.840.1.284277.3.579.2. 462 Unknown [id number] 2.840.1.792641.3.579.2. 462 Unknown [id number] 2.840.1.900140.3.579.2. 462 Unknown [id number] 2.16840.1.364606.3.579.2. 462 Unknown [id number] 2.16840.1.156579.3.579.2. 462 Unknown [id number] 2.16840.1.533153.3.579.2. 462 Unknown [id number] 2.16840.1.078863.3.579.2. 462 Unknown [id number] 2.840.1.316707.3.579.2. 462 Unknown [id number] 2.16.840.1.194154.3.579.2. 462 Unknown [id number] 2.16.840.1.402157.3.579.2. 462 Unknown [id number] 2.16.840.1.352059.3.579.2. 462 Unknown [id number] 2.16.840.1.492204.3.579.2. 462 Unknown [id number] 2.16.840.1.426080.3.579.2. 462 Unknown [id number] 2.16.840.1.692666.3.579.2. 462 Unknown [id number] 2.16.840.1.781865.3.579.2. 462 Unknown [id number] 2.16.840.1.878416.3.579.2. 462 Unknown [id number] 2.16.840.1.821162.3.579.2. 462 Unknown [id number] 2.16.840.1.488321.3.579.2. 462 Unknown [id number] 2.16.840.1.362584.3.579.2. 462 Unknown [id number] 2.16.840.1.731467.3.579.2. 462 Unknown [id number] 2.16.840.1.987081.3.579.2. 462 Unknown [id number] 2.16.840.1.917057.3.579.2. 462 Unknown [id number] 2.16.840.1.781089.3.579.2. 462 Social History Date Type Detail Facility [facility] Work Phone: Start: 11-02-2021 End: 07-04-2023 Tobacco smoking status NHIS Unknown if ever smoked [facility] Start: 1980 Sex Assigned At Female W [facility] Start: 1980 Sex Assigned At Not on file [facility] Start: 07-25-2024 End: 09-21-2024 Gender identity Not on file [facility] Start: 10-31-2023 Tobacco smoking status Light tobacco smoker (finding) [facility] Start: 10-12-2021 End: 07-01-2024 Sex Female (finding) [facility] Start: 07-01-2024 End: 10-24-2024 Tobacco smoking status ALIS Smokes tobacco daily (finding) [facility] Start: 03-14-1982 History of tobacco use Cigarette Smoker [facility] Start: 04-16-2020 End: 09-21-2024 Cigarettes smoked current (pack per day) - Reported 0.3 [facility] Start: 04-16-2020 End: 08-15-2024 Tobacco use and exposure Smokeless tobacco non-user [facility] Start: 07-25-2024 Alcoholic beverage intake Current non-drinker of alcohol (finding) [facility] Has the [employer], gas, oil, or water [employer] threatened to shut off services in your home in past 12Mo No [facility] Start: 02-06-2022 PHQ2 Score 0 [facility] (I/We) worried whether (my/our) food would run out before (I/we) got money to buy more. Never true [facility] Start: 09-18-2018 Tobacco Comment since age 12 yrs [facility] Start: 08-05-2024 End: 08-15-2024 Exposure to SARS-CoV-2 (event) Not sure [facility] How often to you hav e a drink containing alcohol? Never [facility] Work Phone: How hard is it for you to pay for the very basics like food, housing, medical care, and heating Hard [facility] In the past 12 months, was there a time when you were not able to pay the mortgage or rent on time? Yes [facility] Work Phone: NEGATED: Highlighted row Not [facility] Medical Equipment Procedure Code Equipment Code Equipment Origin al Text Equipment Identifier Dates ERCP (endoscopic retrograde cholangiopancreato graphy) [id number] [facility] Start: 08-21-2024 ERCP (endoscopic retrograde cholangiopancreato graphy) ([id number] FDA Start: 08-21-2024 [id number] Visi a Af Mri [id number] Start: 10-29-2016 Lead Sprint Quat tro Secure S 55cm Pacing Df-4 Tripolar Screw Defibrillator - [id number] Start: 10-29-2016 Comment on above: Description: Right v entrical lead Defib-Vr [id number] Visia Mri Af - [id number] Start: 10-29-2016 FDA Start: 10-29-2016 FDA [...] /State Functional Status Date Assessment Result Facility 09-21-2024 Total score [AUDIT-C] 0 09/22/19 25 4:17 AM Kassidy Ochoa RN [facility] Work Phone: 09-21-2024 Patient Health Questionnaire 2 item (PHQ-2) [Reported] [facility] Work Phone: 09-20-2024 [place] - suicide s everity rating scale screener - recent [C-SSRS] [facility] Work Phone: 09-14-2024 Functional status Bathroom Privilege [facility] Work Phone: 08-24-2024 Functional status Ambulates [facility] Work Phone: 07-27-2024 Are you deaf, or do you have serious difficulty hearing No 07/27/2024 9:19 AM Zaida Morales RN No [facility] 07-27-2024 Are you blind, or do you have serious difficulty seeing, even when wearing glasses No 07/27/2024 9:19 AM Ziada Morales RN No [facility] 07-27-2024 Do you have serious difficulty walking or climbing stairs No 07/27/2024 9:19 AM Zaida Morales RN No [facility] 07-27-2024 Do you have difficul ty dressing or bathing No 07/27/2024 9:19 AM Zaida Morales RN No [facility] 07-27-2024 Because of a physica l, mental, or emotional condition, do you have difficulty doing errands alone such as visiting a physician's office or shopping No 07/27/2024 9:19 AM Zaida Morales, YESENIA No [facility] 07-24-2024 Functional status Up ad petey [facility] Work Phone: 07-22-2024 Functional status Well [facility] Work Phone: 07-08-2024 Are you deaf, or do you have serious difficulty hearing No 07/08/2024 3:50 PM Lor Zamorano RN No [facility] 07-08-2024 Are you blind, or do you have serious difficulty seeing, even when wearing glasses No 07/08/2024 3:50 PM Lor Zamorano RN No [facility] 07-08-2024 Do you have serious difficulty walking or climbing stairs No 07/08/2024 3:50 PM Lor Zamorano, YESENIA No [facility] 07-08-2024 Do you have difficul ty dressing or bathing No 07/08/2024 3:50 PM Lor Zamorano RN No [facility] 07-08-2024 Because of a physica l, mental, or emotional condition, do you have difficulty doing errands alone such as visiting a physician's office or shopping No 07/08/2024 3:50 PM Lor Zamorano RN No [facility] 10-31-2023 Functional Status Repositions self Count includes the [facility] itals [facility] Work Phone: Mental Status Date Assessment Result Facility 11-23-2024 Cognitive function Drowsy [facility] Work Phone: 11-23-2024 Cognitive function Voice/Name [facility] Work Phone: 09-14-2024 Cognitive function Voice/Name [facility] Work Phone: 08-24-2024 Cognitive function Voice/Name;Touch/Shaki ng [facility] Work Phone: 07-27-2024 Because of a physica l, mental, or emotional condition, do you have serious difficulty concentrating, remembering, or making decisions No 07/27/2024 9:19 AM Zaida Morales, YESENIA No [facility] 07-24-2024 Cognitive function Voice/Name [facility] Work Phone: 07-12-2024 Cognitive function Voice/Name [facility] Work Phone: 07-08-2024 Because of a physica l, mental, or emotional condition, do you have serious difficulty concentrating, remembering, or making decisions No 07/08/2024 3:50 PM Lor Zamorano, YESENIA No [facility] 05-12-2024 Cognitive function Awake;Alert;A ppropriate;Fol lows Commands [facility] Work Phone: 12-25-2022 Cognitive function Voice/Name [facility] Work Phone: 12-16-2021 Cognitive function Level Of Cons ciousness Awake;Alert;Appropriate;Fol lows Commands [facility] Work Phone: Clinical Notes 09-18-2020 to 11-23-2024 Note Date & Type Note Facility 11-23-2024 History and physical note Note Date/Time November 23, 2024 1:35pm [facility] Medical Records Department [address] [place] [address] History & Physical Exam 11/23/24 1332 MR#: [id number] Acct: [id number] Name: MICHELLE MITCHELL Rep #:[id number] : 1980 44 From: Quang Friend DO PCP: Dr. Dex Wilkinson MD [place]:R [place] [facility] [place] [address] HPI - General General Date of Admission: 11/23/24 Date of Service: 11/23/24 Chief Complaint: Biliary stent removal HPI Narrative MICHELLE MITCHELL, is a 44 F who presents with the Chief Complaint: abd pain [facility] 07.03.24 with upper abd pain with associated vomiting. Past surgical hx of cholecystectomy, appendectomy, oophorectomy and tubal ligation. CT abd/pelvis 07.01.24 Subtle wall thickening of the distal and terminal ileum with hyperenhancement of the wall, suspicious for inflammatory bowel disease, please correlate clinically. Hepatomegaly.Suspected pelvic congestion. Small pelvic free fluid. Small bilateral pleural effusion with atelectasis. BGI established 07.03.24 with chronic abd pain. EGD 07.12.24; - Normal esophagus. - Acute gastritis with hemorrhage. Biopsied. - Erythematous duodenopathy. Biopsied. Colonoscopy 07.12.24 - The rectum, sigmoid colon, descending colon, splenic flexure, transverse colon, hepatic flexure, ascending colon and recto-sigmoid colon are normal. Biopsied. - Congested mucosa in the terminal ileum. Biopsied. - The examined portion of the ileum was normal. Biopsied. OV 08.08.24 Continued abd pain. MRCP ordered. May need ERCP to evaluation for sphincter of Oddi syndrome, cholelithiasis and ampullary lesion. [facility] ED 08.11.24 [facility] admission 08.21.24-08.24.24 with abd pain. Work up showing worsening elevationin alk phos, normal bili and normal lipase. Admitted for ERCP. ERCP 08.21.24 - Biliary papillary stenosis, indeterminate. - A [...] duct in the head of the pancreas. - No specimens collected. MRCP 08.27.24 1. Minimal bilateral pleural effusions. 2. Passive atelectatic airspace disease of the lower lobes. . Mild cardiomegaly. 4. Hepatomegaly with hepatic steatosis. 5. Pneumobilia in the left hepatic lobe. 6. Prior cholecystectomy. . Unremarkable stents in the common bile and pancreatic ducts. . Mild edema of the pancreatic head and uncinate process, possibly mild changes of acute pancreatitis. Please correlate with lipase value. 9. Mild diffuse thickening of the stomach, probably gastritis. . Minimal perihepatic free fluid. Pain management; recent celiac nerve block. Did not help with pain [facility] admission 7.2.-7.4.25 CT abd/pelvis 7.04.07;Basilar atelectasis. Mildly enlarged heart. Hepatomegaly and diffuse hepatic steatosis. Correlate for possible hepatitis. Status post cholecystectomy. Biliary stent in good position. Biliary air, likely iatrogenic. Pancreatic stent. No acute pancreatic pathology. Unremarkable spleen, adrenal glands, and kidneys. No hydronephrosis. Normal bladder. Normal uterus. Distended pelvic veins, correlate for pelvic congestion syndromeNo retroperitoneal or pelvic adenopathy. No free air. Status post appendectomy. Multiple diverticula. No acute large bowel findings. Lumbar spine scoliosis. No acute abdominal wall findings. CT abd/pelvis 7.2.25 . No significant interval change. The biliary and pancreatic stents are in unchanged position, and there is trace left pneumobilia which is also unchanged. 2. Heterogeneous enhancement of the mildly enlarged liver, without discrete lesion. Differential again includes hepatitis, hepatic fibrosis, or transient hepatic attenuation differences (GIL), amongst other etiologies. Correlate with laboratory analysis. 3. Trace perihepatic ascites and small volume of pelvic free fluid. OV 7.8.25 Pt here today for f/u after hospital admission. Pt was hospitalized with abd pain after celiac nerve block. Pt also with Hx of hypertrophic cardiomyopathy. She feels she is having increased swelling and sob. [facility] Medical History Normal Holter exam Cardiology follow-up encounter History of CHF (congestive heart failure) Leukocytosis Dilated pancreatic duct Hypertension Severe pulmonary hypertension History of hypertrophic cardiomyopathy Acute systolic congestive heart failure, NYHA class 3 Leukocytosis Cancer History of steroid therapy Easy bruising Migraine headache History of hiatal hernia History of ulceration History of IBS Abdominal bloating Stomach pain Nausea & vomiting Shortness of breath on exertion Smoker History of echocardiogram Chest pain Abdominal pain Pulmonary embolism Endometrial cancer Cervical cancer longterm current use of 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 Ovarian cancer GERD (gastroesophageal reflux disease) Insomnia Anxiety Collapsed lung History of blood clots Asthma Breast cancer Pacemaker ICD (implantable cardioverter-defibrillator) in place Hypertrophic cardiomyopathy Home Medications ?Medication ?Instructions ?Recorded ?Last Taken ?Type alprazolam 0.5 mg tablet 0.5 mg PO BID ANXIETY 09/11/24 History zolpidem 10 mg tablet 10 mg PO QHS SLEEP 11/13/21 09/10/24 History sucralfate 1 gram tablet (Carafate) 1 g PO BIDCM GERD 07/10/24 09/10/24 History metoprolol succinate 25 mg 25 mg PO QDAY HEART 5 11/22/24 History tablet,extended release 24 hr pantoprazole 40 mg tablet,delayed 40 mg PO BID GERD 09/10/24 History release spironolactone 25 mg tablet 25 mg PO DAILY WATER PILL 08/20/24 09/10/24 History empagliflozin 10 mg tablet 10 mg PO QDAY 10/12/2410/12 History (Jardiance) buprenorphine 10 mcg/hour weekly 1 patch topical QWEEK 10/17/24 Unknown History transdermal patch furosemide 20 mg tablet (Lasix) 20 mg PO QDAY PRN rosario a 10/17/24 Unknown History Allergy/AdvReac Type Severity Reaction Status Date / Time gabapentin (From Neurontin) Allergy Severe Anaphylaxis Verified 11/23/24 12:37 morphine Allergy Mild Hives Verified 11/23/24 12:37 codeine Allergy Hives Verified 11/23/24 12:37 erythromycin base Allergy PT UNSURE Verified 11/23/24 12:37 OF REACTION Fish Containing Products Allergy Other Verified 11/23/24 12:37 levofloxacin Allergy PT UNSURE Verified 11/23/24 12:37 OF REACTION shellfish derived Allergy Other Verified 11/23/24 12:37 tramadol Allergy Hives Verified 11/23/24 12:37 trimethobenzamide (From Allergy Other Verified 11/23/24 12:37 Tigan) acetaminophen (From Vicodin) AdvReac Other Verified 11/23/24 12:37 hydrocodone (From Vicodin) AdvReac Other Verified 11/23/24 12:37 metoclopramide (From Reglan) AdvReac Other Verified 11/23/24 12:37 Family History Father Heart disease Idiopathic hypertrophic subaortic stenosis, hypertrophic obstructive cardiomyopathy, congestive heart failure Mother Breast cancer DVT (deep venous thrombosis) Sister Hypertrophic obstructive cardiomyopathy heart transplant at age 34 Cancer Brain, breast, and colon Grandfather Heart disease at age 45 Grandmother CVA (cerebral vascular accident) age 43 Surgical History History of esophagogastroduodenoscopy (EGD) History of ERCP Presence of implantable cardioverter-defibrillator (ICD) History of [...] use caffeine: Yes ROS Constitutional Constitutional: Denies fatigue, fever(s), poor appetite, weight gain or weight loss Gastrointestinal Gastrointestinal: Denies belching, bloating, change in bowel habits, change in stool character, chewing difficulty, coffee ground emesis, constipation, cramping, diarrhea, dyspepsia, dysphagia, early satiety, excessive flatus, fecalincontinence, heartburn, hematemesis, hematochezia, hemorrhoids, loose stools, melena, nausea, odynophagia, rectal bleeding, tenesmus, vomiting or weight changes Vital Signs Vital Signs Vital Signs: 11/23/24 12:38 11/23/24 12:42 Temperature 97.8 F Temperature Source Temporal Pulse Rate 87 Respiratory Rate 18 Respiratory Pattern Normal Blood Pressure 123/81 H Blood Pressure Mean 95 Blood Pressure Source Monitor Blood Pressure Position Semi-Fowlers Blood Pressure Location Right Arm Pulse Ox 98 Oxygen Delivery Method Room Air Weight Weight: 127 lb 6.835 oz Body Mass Index (BMI) 21.9 Physical Exam Const alert, oriented x3, no apparent distress and healthy appearing General Appearance: cooperative GI normal to inspection, nondistended, normoactive bowel sounds, soft to palpation,non-tender and non-distended Percussion: normal to percussion Rectal Exam: deferred Assessment & Plan Assessment/Plan (1) S/P ERCP: (2) History of biliary stent insertion: (3) Choledocholithiasis: PLAN: Assessment and Plan Assessment and Plan (1) Chronic abdominal pain: Status: Chronic Plan: Michelle is a 44 yo female pt here today for hospital f/u for abdominal pain. Pthas had work up including ERCP, MRCP, ABD CT, blood work, and stool testing. ERCP with biliary stricturing, dilate pancreatic duct and cholelithiasis Stents placed. MRCP showing possible inflammation in the pancreas but lipase normal. She is established with pain management for her pain but has had no relief with a celiac nerve block. She has f/u in one week with Dr. Dennison. Pt also with hypertrophic cardiomyopathy following with metal crafts teacher at . SHe endorses worsening sob and swelling. I advised she call her metal crafts teacher or present to the ED if symptoms persist. SHe was scheduled for ERCP with stent pull. I have started her on hyoscyamine daily. She endorses abnormal uterine bleeding with noperiod for 17 years until recently. I have referred to OBGYN regarding this. -ERCP scheduled -f/u with Dr. Dennsion -Advised she f/u with cardiology -Start hyoscyamine -refered to OBGYN (2) Abnormal uterine bleeding: Status: Acute (3) S/P ERCP: Status: Acute Orders: Orders CBC W/Diff, Automated Today G89.29 - Other chronic pain, R10.9 - Unspecified abdominal pain Comprehensive Metabolic Profil Today G89.29 - Other chronic pain, R10.9 - Unspecified abdominal pain Referrals DOG GROOMER N93.9 - Abnormal uterine and vaginal bleeding, unspecified Medications: New hyoscyamine sulfate 0.125 mg PO BID-QID 60 tabs 1RF dyspepsia 11/23/24 1335 <Electronically signed by Quang Myles DO> Cosigner Signature (if applicable): CC: Dr. Dex Wilkinson MD; Quang Myles DO~ Signed [facility] Work Phone: 1(698) 420-622509-12-2025 Radiology Diagnostic study [facility]09-12-2025 Procedure [facility]09-12-2025 Procedure [facility]09-12-2025 Consult note Author Willian Munoz [facility] Note Date/Time November 23, 2024 12:39pm [facility] Medical Records Department [address] [place] [id number] Pre-Anesthesia Evaluation 11/23/24 1233 MR#: [id number] Acct: [id number] Name: MICHELLE MITCHELL Rep #:[id number] : 1980 44 From: Willian Munoz MD PCP: Dr. Dex Wilkinson MD Status:R [place] [facility] [place] Race[place] C Location: [place] [address] ASA Classification* ASA Classification ASA Classification: 4 Assessment & Plan Anesthesia* Anesthesia Assessment Anesthesia [...] risk assessments. Anesthesia Type Anesthesia Type: General History Source History Obtained from:: Patient and Chart Anesthesia Focused Assessment* Airway Assessment Mouth opens: >3 cm Mallampati Score: II Labs Anesthesia Preop lab: CBC WBC 17.3 K/mm3 (4.4-11.0) H 09/14/24 05:16 5 RBC 3.98 M/mm3 (4.2-5.4) L 09/14/24 05:16 09/14/24 Hgb 12.2 g/dL (12.0-15.0) 09/14/24 05:16 09/14/24 Hct 38.4 % (37-47) 09/14/24 05:16 09/14/24 Plt Count 339 K/mm3 (150-450) 09/14/24 05:16 09/14/24 CHEMISTRY Potassium 4.6 mmol/L (3.3-5.1) 09/14/24 05:16 09/14/24 Sodium 131 mmol/L (133-145) L 09/14/24 05:16 09/14/24 Magnesium 1.8 mg/dL (1.5-2.2) 09/11/24 22:00 09/11/24 Phosphorus 5.2 mg/dL (2.7-4.5) H 09/13/24 05:04 09/13/24 BUN 19 mg/dL (4-19) 09/14/24 05:16 09/14/24 Creatinine 0.98 mg/dL (0.70-1.20) 09/14/24 05:16 09/14/24 Glucose 119 mg/dL (70-99) H 09/14/24 05:16 09/14/24 TSH 1.410 uIU/mL (0.300-4.200) 09/12/24 05:36 07/05/08 COAG PT 12.8 SECONDS (11.7-14.9) 08/08/24 09:33 Urine Test Negative Negative 08/11/24 10:40 08/11/24 Pre-Assessment Diagnosis/Proposed Procedure Planned Operative Procedure(s): ERCP Anesthesia History Anesthesia History - guard chief: Anesthesia History - guard chief Hx Hospitalization Yes: 05/2024 ABSCESS TURNED 10/24/24 09:44 SEPTIC/06/2024 STOMACH PAIN, 07/2024 AND 09/2024 CHF Any Problems With Anesthesia No 10/24/24 09:44 Cholinesterase deficiency No 10/24/24 09:44 You/Your Family Experience No 10/24/24 09:44 fever (hyperthermia) with Relationship Recent Exposure to Contagious No 08/20/24 21:50 Disease Does patient have nerve No 10/24/24 09:44 stimulator Patient instructed to have device shut off --Does patient have Pacemaker or ICD? When Was Last Pacemaker Check 07/04/2024 08/20/24 21:50 QUESTION #4 FULL TEXT: You/Your Family Experience fever (hyperthermia) with Anesthesia Last Oral Intake Last Oral intake: Last Oral Intake NPO since Meds taken in AM with sips of water? 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 - guard chief: PONV - guard chief Female Yes 10/24/24 09:44 HX of Motion Sickness No 10/24/24 09:44 HX of N/V After Surgery No 10/24/24 09:44 Non-Smoker No 10/24/24 09:44 Duration of Surgery greater No 10/24/24 09:44 than 60 minutes Number of Risk Factors 1 10/24/24 09:44 PONV Score Low Risk 10/24/24 09:44 Height & Weight Height & Weight: Anesthesia: Height & Weight Height 5 ft 4 in 10/17/24 15:31 Respiratory Assessment Respiratory Assessment - guard chief: Respiratory Tract Infection Hx - guard chief Hx Respiratory Tract Infection No 10/24/24 09:44 STOP Sleep Apnea STOP Sleep Apnea - guard chief: STOP Sleep Apnea - guard chief Hx Hypertension No 10/24/24 09:44 Hx Sleep Apnea No 10/24/24 09:44 CPAP BIPAP Do you snore loudly (louder No 10/24/24 09:44 than talking or can be heard Do you often feel tired/ No 10/24/24 09:44 fatigued/ sleepy during daytime? Has anyone observed you stop No 10/24/24 09:44 breathing during sleep? STOP Results Negative 10/24/24 09:44 QUESTION #5 FULL TEXT : Do you snore loudly (louder than talking or can be heard through closed doors)? Tobacco Use History Tobacco Use History - guard chief: Tobacco Use History - guard chief Tobacco Use Smoking Status Current every day smoker 10/24/24 09:44 Hx Tobacco Use Yes 10/24/24 09:44 Years Smoking Packs Smoked per Day Smoking Cessation Date was within the last 15 years Hx Smoking Cessation Date Hx Smoking Cessation No 10/24/24 09:44 Counseling Hematologic Medial History Hematologic Hx - guard chief: 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 Hx of Blood Transfusion No 10/24/24 09:44 Hx of Transfusion in last 3 No 10/24/24 09:44 Months Date of Last Transfusion (if within last 3 months) Ever experience any problems No 10/24/24 09:44 with transfusion(s)? Specify any problems Hx of Preganancy in last 3 No 10/24/24 09:44 Months Nurse Filling Out Transfusion VCHRISTIN 10/24/24 09:44 & Questions: Date: 10/24/24 10/24/24 09:44 Time: 09:45 10/24/24 09:44 Patient unable to answer at this time (ie. confused, unrespo /Reproduction History /Reproductive History - guard chief: /Reproductive Hx- guard chief Hx Now No 10/24/24 09:44 Gestational Age (in weeks): EDC: Hx Hx Para Hx Section SAB No 10/24/24 09:44 Active Medications Active Medications: Current Medications Generic Name Dose Route Start Last Admin Trade Name Freq PRN Reason Stop Dose Admin Lactated Ringer's 1,000 mls @ 15 mls/hr 11/23/24 12:30 IV .Q48H PIA PFSH Medical History Normal Holter exam Cardiology follow-up encounter History of CHF (congestive heart failure) Leukocytosis Dilated pancreatic duct Hypertension Severe pulmonary hypertension History of hypertrophic cardiomyopathy Acute systolic congestive heart failure, NYHA class 3 Leukocytosis Cancer History of steroid therapy Easy bruising Migraine headache History of hiatal hernia History of ulceration History of IBS Abdominal bloating Stomach pain Nausea & vomiting Shortness of breath on exertion Smoker History of echocardiogram Chest pain Abdominal pain Pulmonary embolism Endometrial cancer 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 Ovarian cancer GERD (gastroesophageal reflux disease) Insomnia Anxiety Collapsed lung History of blood clots Asthma Breast cancer Pacemaker ICD (implantable cardioverter-defibrillator) in place Hypertrophic cardiomyopathy Home Medications ?Medication ?Instructions ?Recorded ?Last Taken ?Type alprazolam 0.5 mg tablet 0.5 mg PO BID ANXIETY 09/11/24 History zolpidem 10 mg tablet 10 mg PO QHS SLEEP 11/13/21 09/10/24 History sucralfate 1 gram tablet (Carafate) 1 g PO BIDCM GERD 07/10/24 09/10/24 History metoprolol succinate 25 mg 25 mg PO QDAY HEART 5 09/10/24 History tablet,extended release 24 hr pantoprazole 40 mg tablet,delayed 40 mg PO BID GERD 09/10/24 History release spironolactone 25 mg tablet 25 mg PO DAILY WATER PILL 08/20/24 09/10/24 History empagliflozin 10 mg tablet 10 mg PO QDAY 10/12/2410/12 History (Jardiance) buprenorphine 10 mcg/hour weekly 1 patch topical QWEEK 10/17/24 Unknown History transdermal patch furosemide 20 mg tablet (Lasix) 20 mg PO QDAY PRN rosario a 10/17/24 Unknown History Allergy/AdvReac Type Severity Reaction Status Date / Time gabapentin (From Neurontin) Allergy Severe Anaphylaxis Verified 11/23/24 12:37 morphine Allergy Mild Hives Verified 11/23/24 12:37 codeine Allergy Hives Verified 11/23/24 12:37 erythromycin base Allergy PT UNSURE Verified 11/23/24 12:37 OF REACTION Fish Containing Products Allergy Other Verified 11/23/24 12:37 levofloxacin Allergy PT UNSURE Verified 11/23/24 12:37 OF REACTION shellfish derived Allergy Other Verified 11/23/24 12:37 tramadol Allergy Hives Verified 11/23/24 12:37 trimethobenzamide (From Allergy Other Verified 11/23/24 12:37 Tigan) acetaminophen (From Vicodin) AdvReac Other Verified 11/23/24 12:37 hydrocodone (From Vicodin) AdvReac Other Verified 11/23/24 12:37 metoclopramide (From Reglan) AdvReac Other Verified 11/23/24 12:37 Family History Father Heart disease Idiopathic hypertrophic subaortic stenosis, hypertrophic obstructive car diomyopathy, congestive heart failure Mother Breast cancer DVT (deep venous thrombosis) Sister Hypertrophic obstructive cardiomyopathy heart transplant at age 34 Cancer Brain, breast, and colon Grandfather Heart disease at age 45 Grandmother CVA (cerebral vascular accident) age 43 Surgical History History of esophagogastroduodenoscopy (EGD) History of ERCP Presence of implantable cardioverter-defibrillator (ICD) History of [...] use type: does not use caffeine: Yes Prior Cardiac Testing/Procedures Prior Cardiac Testing/Procedures: Echocardiogram ([facility] [address] [place] [address] Echo Complete 07/21/24 1046 MR#: [id number] Acct: [id number] Name: MICHELLE MITCHELL Rep #: [id number] : 1980 43 From: Saman Clay MD Attending Dr: Dr. Willian Mccarthy) and Cardiac Angiogram Addt'l Information Additional Findings: non spec intra vent abn, sr, non spec T wave abn Review of Systems (Anesthesia) ROS Narrative System reviewed and no additional complaints, except as documented. 11/23/24 3459 <Electronically signed by Willian Munoz MD> Date _ Willian Munoz MD Cosigner Signature: Date CC: ~ Signed [facility] Work Phone: [phone] History of Present illness Narrative* Radu Kay MD - 11/21/2024 10:30 AM EDT Advanced [facility] Clinic Note CHIEF COMPLAINT: No chief complaint on file. Primary Care Physician: Dex Wilkinson MD Attic Fans Mechanic- [facility] ([facility]) GI- Friend HISTORY OF PRESENT ILLNESS: Michelle Mitchell is a 44 y.o. female with hypertrophic cardiomyopathy who presents as a new patient Briefly she was apparently diagnosed with hypertrophic cardiomyopathy after an episode of syncope underwent ICD placement in 2006 with lead revision in 2008, and then explant of the entire device with reimplantation in 2016, she was followed with a local metal crafts teacher Dr Bishop (was following at [facility] she moved to [place] in 2021), notably she was admitted with chest pressure to [facility] in 2014 and 2016 felt to be due to her ICD It appears that she was admitted with a leg abscess in May 2024 with an ER visit for abdominal pain the question of IBD was raised and she underwent a biopsy during EGD, she was admitted with dyspnea echocardiogram showing possible vegetation and was transferred to [facility], her blood cultures were negative and on extensive review of her imaging she had a echodensity on her right atrial lead felt jerri due to the old device that was extracted in 2016, however during admission she was also treated with furosemide a few times for heart failure and discharged on metoprolol, apparently was not discharged on a diuretic She continues to be worked up for liver issues with history of apparent gallstone pancreatitis despite a prior cholecystectomy and has stents in both her pancreas and bile duct, her other medical problems include, history of PE, seen by vascular medicine not felt to need anticoagulation, history ofbreast cancer in 1998 treated with lumpectomy radiation and chemotherapy and ovarian cancer in 2006treated with oophorectomy s/p BTL. 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 No edema but does have cough and bloating At her last visit we started spironolactone 25mg and tried to start jardiance 10mg but she had issues with approval however was admitted to [facility] in 2023 she did receive IV diuresis at that time they also were able to get her onto the empagliflozin, of note she had a CT of the abdomen due to elevated ALT and will be following up with GI for removal of her stents unclear if she needs more intervention Currently taking furosemide only as needed, but has only needed a few times and is overall feeling much better than when I last saw her her breathing has been good she has less bloating Her stepmother was diagnosed with breast CA so she has not been able to get genetic information from her family She does continue to smoke ICD issues : no shocks, 5 years of battery, [employer] single lead Monitors/restricts salt/fluid : not much Has scale and weighs self daily: Stable Has BP cuff and BPs at home: not really Allergies[1] CURRENT MEDICATIONS: Current Medications[2] Objective Problems: Problem List[3] Medical History: Medical History[4] has no past medical history on file. Surgical Hx: Surgical History[5] has no past surgical history on file. Social Hx: Tobacco Use: High Risk (09/23/2024) Patient History Smoking Tobacco Use: Every Day Smokeless Tobacco Use: Never Passive Exposure: Not on file Alcohol Use: Not At Risk (09/21/2024) AUDIT-C Frequency of Alcohol Consumption: Never Average Number of Drinks: Patient does not drink Frequency of Binge Drinking: Never reports that she has been smoking cigarettes. She has never used smokeless tobacco. No history on file for alcohol use and drug use. Family Hx: Family History[6] family history is not on file. Allergies: RX Allergies[7] PHYSICAL EXAM: There is no height or weight on file to calculate BMI. TRENDS: Vitals: 09/22/2024 5:08 AM 09/22/2024 8:12 AM 09/22/2024 3:10 PM 09/22/2024 8:00 PM 09/23/2024 4:00 AM 09/23/2024 6:07 AM 09/23/2024 8:06 AM Vitals Systolic 126 124 113 127 120 Diastolic 85 79 71 88 78 BP Location Right arm Right arm Right arm Right arm Right arm Heart Rate 63 69 63 68 70 Temp 36.5 C (97.7 F) 36.4 C (97.5 F) 35.7 C (96.3 F) 35.8 C (96.4 F) 36.1 C (97 F) Resp 18 16 16 16 16 Weight (lb) 119.49 118.17 BMI 20.51 kg/m2 20.28 kg/m2 BSA (m2) 1.56 m2 1.56 m2 WEIGHT TREND: Wt Readings from Last 5 Encounters: 09/23/24 53.6 kg (118 lb 2.7 oz) 08/15/24 57.3 kg (126 lb 6.4 oz) 03/22/20 54.4 kg (120 lb) Objective 44 y.o.year old female, awake alert orient X 3 in NAD CVP is elevated to 8 cm heart is regular no provokable murmur lungs are clear abdomen is slightly firm but mild right upper quadrant tenderness no more than trace edema LABS: RESUFAST(CHOL:1,HDL:1,LDLF:1,TRI): No results found for: CHOL, HDL, LDLF, TRIG GETLABS(6M,2): Admission on 09/20/2024, Discharged on 09/23/2024 Component Date Value WBC 09/21/2024 15.5 (H) nRBC 09/21/2024 0.0 RBC 09/21/2024 4.32 Hemoglobin 09/21/2024 13.1 Hematocrit 09/21/2024 40.7 MCV 09/21/2024 94 MCH 09/21/2024 30.3 MCHC 09/21/2024 32.2 RDW 09/21/2024 14.9 (H) Platelets 09/21/2024 276 Neutrophils % 09/21/2024 92.6 Immature Granulocytes %,* 09/21/2024 0.6 Lymphocytes % 09/21/2024 4.2 Monocytes % 09/21/2024 2.4 Eosinophils % 09/21/2024 0.1 Basophils % 09/21/2024 0.1 Neutrophils Absolute 09/21/2024 14.39 (H) Immature Granulocytes Ab* 09/21/2024 0.09 Lymphocytes Absolute 09/21/2024 0.65 (L) Monocytes Absolute 09/21/2024 0.37 Eosinophils Absolute 09/21/2024 0.01 Basophils Absolute 09/21/2024 0.01 Glucose 09/21/2024 144 (H) Sodium 09/21/2024 136 Potassium 09/21/2024 4.1 Chloride 09/21/2024 106 Bicarbonate 09/21/2024 21 Anion Gap 09/21/2024 13 Urea Nitrogen 09/21/2024 21 Creatinine 09/21/2024 0.82 eGFR 09/21/2024 90 Calcium 09/21/2024 9.8 Albumin 09/21/2024 4.2 Alkaline Phosphatase 09/21/2024 105 Total Protein 09/21/2024 6.5 AST 09/21/2024 24 Bilirubin, Total 09/21/2024 1.0 ALT 09/21/2024 212 (H) Lipase 09/21/2024 51 Magnesium 09/21/2024 1.57 (L) Ventricular Rate 09/21/2024 65 Atrial Rate 09/21/2024 65 W[place] Interval 09/21/2024 162 QRS Duration 09/21/2024 94 QT Interval 09/21/2024 412 QTC Calculation(Bazett) 09/21/2024 428 P [place] 09/21/2024 -14 R [place] 09/21/2024 266 T [place] 09/21/2024 59 QRS Count 09/21/2024 11 Q Onset 09/21/2024 203 P Onset 09/21/2024 122 P Offset 09/21/2024 191 T Offset 09/21/2024 409 QTC Fredericia 09/21/2024 422 BNP 09/21/2024 >4,700 (H) Troponin I, High Sensiti* 09/21/2024 49 (H) Color, Urine 09/21/2024 Light-Yellow Appearance, Urine 09/21/2024 Clear Specific [place], Urine 09/21/2024 1.023 pH, Urine 09/21/2024 6.5 Protein, Urine 09/21/2024 30 (1+) (A) Glucose, Urine 09/21/2024 Normal Blood, Urine 09/21/2024 NEGATIVE Ketones, Urine 09/21/2024 NEGATIVE Bilirubin, Urine 09/21/2024 NEGATIVE Urobilinogen, Urine 09/21/2024 Normal Nitrite, Urine 09/21/2024 NEGATIVE Leukocyte Esterase, Urine 09/21/2024 NEGATIVE Troponin I, High Sensiti* 09/21/2024 48 (H) WBC, Urine 09/21/2024 1-5 RBC, Urine 09/21/2024 6-10 (A) Squamous Epithelial Cell* 09/21/2024 1-9 (SPARSE) Mucus, Urine 09/21/2024 FEW LVOT diam 09/21/2024 1.60 AV pk carrington 09/21/2024 0.92 AV mn grad 09/21/2024 2 LV Biplane EF 09/21/2024 40 Tricuspid annular plane * 09/21/2024 1.4 LA vol index A/L 09/21/2024 31.8 LV EF 09/21/2024 40 RV free wall pk S' 09/21/2024 5.00 LVIDd 09/21/2024 4.94 RVSP 09/21/2024 71 Aortic Valve Area by Con* 09/21/2024 1.40 Aortic Valve Area by Con* 09/21/2024 1.28 AV pk grad 09/21/2024 3 LV A4C EF 09/21/2024 40.5 Glucose 09/22/2024 84 Sodium 09/22/2024 136 Potassium 09/22/2024 3.6 Chloride 09/22/2024 96 (L) Bicarbonate 09/22/2024 31 Anion Gap 09/22/2024 13 Urea Nitrogen 09/22/2024 25 (H) Creatinine 09/22/2024 0.95 eGFR 09/22/2024 75 Calcium 09/22/2024 10.4 (H) WBC 09/22/2024 12.8 (H) nRBC 09/22/2024 0.0 RBC 09/22/2024 4.95 Hemoglobin 09/22/2024 15.1 Hematocrit 09/22/2024 46.4 (H) MCV 09/22/2024 94 MCH 09/22/2024 30.5 MCHC 09/22/2024 32.5 RDW 09/22/2024 14.6 (H) Platelets 09/22/2024 319 Lactate 09/22/2024 1.2 Procalcitonin 09/23/2024 0.04 WBC 09/23/2024 13.9 (H) nRBC 09/23/2024 0.0 RBC 09/23/2024 5.50 (H) Hemoglobin 09/23/2024 16.6 (H) Hematocrit 09/23/2024 49.8 (H) MCV 09/23/2024 91 MCH 09/23/2024 30.2 MCHC 09/23/2024 33.3 RDW 09/23/2024 14.4 Platelets 09/23/2024 326 Glucose 09/23/2024 89 Sodium 09/23/2024 134 (L) Potassium 09/23/2024 3.8 Chloride 09/23/2024 94 (L) Bicarbonate 09/23/2024 32 Anion Gap 09/23/2024 12 Urea Nitrogen 09/23/2024 30 (H) Creatinine 09/23/2024 0.92 eGFR 09/23/2024 78 Calcium 09/23/2024 9.9 Hospital Outpatient Visit on 08/15/2024 Component Date Value Ventricular Rate 08/23/2024 60 Atrial Rate 08/23/2024 60 WY Interval 08/23/2024 170 QRS Duration 08/23/2024 102 QT Interval 08/23/2024 436 QTC Calculation(Bazett) 08/23/2024 436 P [place] 08/23/2024 17 R [place] 08/23/2024 -73 T [place] 08/23/2024 83 QRS Count 08/23/2024 10 Q Onset 08/23/2024 205 P Onset 08/23/2024 120 P Offset 08/23/2024 185 T Offset 08/23/2024 423 QTC Fredericia 08/23/2024 436 LABBRIEF(HGB:3) Lab Results Component Value Date HGB 16.6 (H) 09/23/2024 HGB 15.1 09/22/2024 HGB 13.1 09/21/2024 CMP: Recent Labs 09/23/24 0601 09/22/24 0435 09/21/24 0005 NA 134* 136 136 K 3.8 3.6 4.1 CL 94* 96* 106 CO2 32 31 21 ANIONGAP 12 13 13 BUN 30* 25* 21 CREATININE 0.92 0.95 0.82 EGFR 78 75 90 MG -- -- 1.57* Recent Labs 09/21/24 0005 ALBUMIN 4.2 ALKPHOS 105 ALT 212* AST 24 BILITOT 1.0 LIPASE 51 CBC: Recent Labs 09/23/24 0601 09/22/24 0435 09/21/24 0005 WBC 13.9* 12.8* 15.5* HGB 16.6* 15.1 13.1 HCT 49.8* 46.4* 40.7 PLT 326 319 276 MCV 91 94 94 HEME/ENDO: Recent Labs 07/25/24 0653 04/25/21 0844 HGBA1C 5.5 5.2 CARDIAC: Recent Labs 09/21/24 0111 09/21/24 0005 TROPHS 48* 49* BNP -- >4,700* No results for input(s): CHOL, LDLF, HDL, TRIG in the last 31780 hours. BNP Date Value Ref Range Status 09/21/2024 >4,700 (H) 0 - 99 pg/mL Final DIAGNOSTIC STUDIES REVIEWED: EKG: sinus rhythm with LAE bifid p wave, septal q Encounter Date: 09/20/24 ECG 12 lead Result Value Ventricular Rate 65 Atrial Rate 65 WY Interval 162 QRS Duration 94 QT Interval 412 QTC Calculation(Bazett) 428 P [place] -14 R [place] 266 T [place] 59 QRS Count 11 Q Onset 203 P Onset 122 P Offset 191 T Offset 409 QTC Fredericia 422 Narrative Normal sinus rhythm Incomplete right bundle branch block Right ventricular hypertrophy Possible Lateral infarct , age undetermined Abnormal ECG When compared with ECG of 20-SEP-2024 22:33, (unconfirmed) Vent. rate has decreased BY 96 BPM Incomplete right bundle branch block is now Present See ED provider note for full interpretation and clinical correlation Confirmed by Roselyn San ([id number]) on 09/25/2024 7:52:09 PM ECHO MICKI 07/25/24: filamentous echodensity on the RV lead in the right atrium, measuring ~1.4 cm which appears new from [facility] on 2016. Differential includes infectious versus fibrinous material. - Technically difficult exam due to patient [...] the prior echocardiographic exam performed on 04/25/2021 ([facility]). Mobile echodensity reported today as above. MICKI may better assesss. TTE 2024 1. The left ventricular systolic function is moderately decreased with a Vann's biplane calculated ejection fraction of 40%. 2. There is global hypokinesis of the left ventricle with minor regional variations. 3. There is mildly reduced right ventricular systolic function. 4. Mild to moderate tricuspid regurgitation. 5. The Doppler estimated RVSP is severely elevated at 69 mmHg. CORONARY ANGIOGRAM CTPE(02/19/2017) 1. No evidence of [...] testing although she herself has not undergone itprobably not worthwhile at this point unless we can determine the specifics of her family It does seem that she has shifted into a restrictive phenotype with a drop in ejection fraction will likely need workup for transplant evaluation in the near future particular given her family history I do not see any recent or prior evidence of obstruction on the imaging although I cannot actuallysee the images myself Will continue on beta-krishan plus MRA plus SGLT2 occasional furosemide she seems to be doing well at this time Unable to determine 100% but it seems as if she has shifted into a restrictive phenotype even in the past I do not see any evidence or report of obstruction on her imaging She does have an ICD already it is not clear at this point an MRI will add anything given her current ejection fraction I do not see any reason to initiate a transplant evaluation with her actively smoking unless she has further decompensation or arrhythmic events History of pulmonary embolism she is seen by vascular medicine in the hospital was felt to be a provoked PE no longer needing anticoagulation Pancreatitis/gallstones she has followup with GI later this week she has history of stents I am a bit unclear of what her actual diagnosis is Question of lead vegetation this was extensively evaluated at [facility] 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 Chest pain intermittent and somewhat longstanding without overt evidence of coronary disease, actually better with improved volume status Tobacco use we discussed for 3 minutes again today- she previously did well on Chantix, she is currently taking Trintellix but does not have a history of depression (take for anxiety) She has no history of ischemic vascular events we had a risk-benefit discussion given that her mostimportant long-term treatment would be transplant she is agreeable to restarting on the Chantix at this time I also discussed with her PCP she can reach out to him or myself if she does feel like sheis developing some depressive symptoms I discussed heart failure therapeutic options, including: medical therapy, salt and fluid restriction, the need to monitor BP and weight, exercise and weight loss, smoking cessation, need to control hypertension, follow up and medication changes. I spent 42 minutes coordinating care, reviewing imaging, outside records and discussing options andadjusting medications. I discussed with patient and other providers I spent >50 percent of the time counseling the patient and discussing the diagnosis, general prognosis and plan of care with the patient Orders placed during the encounter: No orders of the defined types were placed in this encounter. Followup Appts: Future Appointments Date Time Provider Department Center 11/21/2024 10:30 AM Radu Kay MD [id number] [place] Radu De Dios IV, MD Heart Failure, Heart Transplant and Mechanical Circulatory Support [1] Allergies Allergen Reactions [place] Anaphylaxis Shellfish Derived Anaphylaxis Tigan [Trimethobenzamide] Anaphylaxis Vicodin [Hydrocodone-Acetaminophen] Shortness of breath Azithromycin Unknown Levofloxacin Unknown Morphine Hives Prozac [Fluoxetine] Other Suicidal ideation Ultram [Tramadol] Hives Codeine Rash [2] Current Outpatient Medications Medication Sig Dispense Refill albuterol (Ventolin HFA) 90 mcg/actuation inhaler Inhale 2 puffs every 6 hours if needed for wheezing. ALPRAZolam (Xanax) 0.5 mg tablet Take 1 tablet (0.5 mg) by mouth 2 times a day. empagliflozin (Jardiance) 10 mg tablet Take 1 tablet by mouth once daily. 90 tablet 3 furosemide (Lasix) 20 mg tablet Take 1 tablet (20 mg) by mouth once daily. (Patient taking differently: Take 1 tablet (20 mg) by mouth once daily as needed (edema).) hyoscyamine (Anaspaz, Levsin) 0.125 mg tablet 1 tablet (0.125 mg). (Patient taking differently: Take 1 tablet (0.125 mg) by mouth once daily.) metoprolol succinate XL (Toprol-XL) 25 mg 24 hr tablet Take 1 tablet (25 mg) by mouth once daily. Do not crush or chew. pantoprazole (ProtoNix) 40 mg EC tablet Take 1 tablet (40 mg) by mouth once daily in the morning. Take before meals. Do not crush, chew, or split. (Patient taking differently: Take 1 tablet (40 mg) by mouth 2 times a day. Do not crush, chew, or split.) psyllium (Metamucil) 3.4 gram packet Take 1 packet by mouth once daily. (Patient taking differently: Take 1 packet by mouth once daily as needed (constipation).) spironolactone (Aldactone) 25 mg tablet Take 1 tablet (25 mg) by mouth once daily. 30 tablet 11 sucralfate (Carafate) 1 gram tablet Take 1 tablet (1 g) by mouth 2 times a day. zolpidem (Ambien) 10 mg tablet Take 1 tablet (10 mg) by mouth as needed at bedtime for sleep. No current facility-administered medications for this visit. [3] Patient Active Problem List Diagnosis Atypical chest pain Cardiomyopathy, hypertrophic nonobstructive (Multi) History of pulmonary embolism Other ascites [4] No past medical history on file. [5] No past surgical history on file. [6] No family history on file. [7] Allergies Allergen Reactions [place] Anaphylaxis Shellfish Derived Anaphylaxis Tigan [Trimethobenzamide] Anaphylaxis Vicodin [Hydrocodone-Acetaminophen] Shortness of breath Azithromycin Unknown Levofloxacin Unknown Morphine Hives Prozac [Fluoxetine] Other Suicidal ideation Ultram [Tramadol] Hives Codeine Rash [8] Patient Active Problem List Diagnosis Atypical chest pain Cardiomyopathy, hypertrophic nonobstructive (Multi) History of pulmonary embolism Other ascites * Anabell Noonan RN - 11/21/2024 10:30 AM EDT Interval Hx Currently denies chest pain. Patient has complaints of chest pressure. This is continuous. Denies palpitations, shortness of breath. Patient has complaints of dyspnea on exertion, orthopnea, positivePND. No edema noted in BLE. Patient denies dizziness or recent falls. Patient does have complaints of frequent headaches. Hospitalizations: 09/20-09/23/24 [facility] documented [facility] Work Phone: [phone] 543-535509-10-2025 Instructions* Patient Instructions* Radu Kay MD - 11/21/2024 10:30 AM EDT To reach Dr. Kay's office please call [phone] ([place]). . Call [phone] to schedule an appointment. You may also contact the HF RNs at [email or web address] Thank you for coming to your appointment today. If you have any questions or need cardiac medication refills, please call the Heart Failure Office at [phone] option 6. No changes today I will call your PCP about the Chantix Blood in 2 weeks unless get it from [facility] in 2 months documented in this encounterPremier Health Work Phone: [phone] 650-114607-23-2025 [facility] + Plan note* Assessment & Plan Note - Deepika Man, PharmD - 09/24/2024 3:12 PM EDTAssociated Problem(s): Cardiomyopathy, hypertrophic nonobstructive (Multi) Patient is currently on 2/4 GDMT Metoprolol XL 25mg every day Spironolactone 25mg every day (SCr 0.92, eGFR 78, K 3.8 (09/23/24)) START Jardiance 10mg every day for GDMT optimization Monitor BP, BMP, and HF symptoms. [facility] Work Phone: [phone] Miscellaneous Notes* Assessment & Plan Note - Deepika Man PharmD - 09/24/2024 3:12 PM EDTAssociated Problem(s): Cardiomyopathy, hypertrophic nonobstructive (Multi) Patient is currently on 2/4 GDMT Metoprolol XL 25mg every day Spironolactone 25mg every day (SCr 0.92, eGFR 78, K 3.8 (09/23/24)) START Jardiance 10mg every day for GDMT optimization Monitor BP, BMP, and HF symptoms. documented in this encounterPremier [facility] Work Phone: [phone] History of Present illness Narrative* Deepika Man PharmD - 09/24/2024 2:40 PM EDT Images from the original note were not included. Pharmacist Clinic: Cardiology Management Michelle Mitchell is a 44 y.o. female was referred to Clinical Pharmacy Team for heart failure management. Referring Provider: Radu Kay MD THIS IS A NEW PATIENT APPOINTMENT. PATIENT WILL BE ESTABLISHING CARE WITH CLINICAL PHARMACY. Appointment was completed by Michelle who was reached at primary number. Allergies Reviewed? Yes Allergies[1] Medical History[2] Medications Ordered Prior to Encounter[3] RELEVANT LAB RESULTS: Lab Results Component Value Date BILITOT 1.0 09/21/2024 CALCIUM 9.9 09/23/2024 CO2 32 09/23/2024 CL 94 (L) 09/23/2024 CREATININE 0.92 09/23/2024 GLUCOSE 89 09/23/2024 ALKPHOS 105 09/21/2024 K 3.8 09/23/2024 PROT 6.5 09/21/2024 NA 134 (L) 09/23/2024 AST 24 09/21/2024 ALT 212 (H) 09/21/2024 BUN 30 (H) 09/23/2024 ANIONGAP 12 09/23/2024 MG 1.57 (L) 09/21/2024 ALBUMIN 4.2 09/21/2024 LIPASE 51 09/21/2024 No results found for: TRIG, CHOL, LDLCALC, HDL No results found for: BMCBC, CBCDIF PHARMACEUTICAL ASSESSMENT: MEDICATION RECONCILIATION Was a medication reconciliation completed at this visit? Yes Home Pharmacy Reviewed? Yes, describe: [facility] dang Changed: - prn lasix, sig for hyoscyamine, protonix BID, psyllium prn Removed: - doc/senna Drug Interactions? No Medication Documentation Review Audit Reviewed by Deepika Man, PharmD (Pharmacist) on 09/24/24 at 1444 Medication Order Taking? Sig Documenting Provider Last Dose Status Discontinued 09/23/241755 Discontinued 09/23/241755 Discontinued 09/23/241755 albuterol (Ventolin HFA) 90 mcg/actuation inhaler [id number] Inhale 2 puffs every 6 hours if needed for wheezing. Historical ProviderMD Active ALPRAZolam (Xanax) 0.5 mg tablet [id number] Yes Take 1 tablet (0.5 mg) by mouth 2 times a day. Historical ProviderMD Active Discontinued 09/23/241755 Patient not taking: Discontinued 09/21/24 0919 Discontinued 09/23/241755 doxycycline (Vibramycin) 100 mg capsule [id number] Yes Take 1 capsule (100 mg) by mouth every 12 hours for 4 days. Take with a full glass of water and do not lie down for at least 30 minutes after. Rishabh El MD Active empagliflozin (Jardiance) 10 mg tablet [id number] Take 1 tablet (10 mg) by mouth once daily. Patient not taking: Reported on 09/24/2024 Radu Kay MD Active Discontinued 09/23/241755 Discontinued 09/23/241755 furosemide (Lasix) 20 mg tablet [id number] Yes Take 1 tablet (20 mg) by mouth once daily. Patient taking differently: Take 1 tablet (20 mg) by mouth once daily as needed (edema). Historical ProviderMD Active Discontinued 09/23/241755 Discontinued 09/23/241755 Discontinued 09/23/241755 Discontinued 09/23/241755 hyoscyamine (Anaspaz, Levsin) 0.125 mg tablet [id number] Yes 1 tablet (0.125 mg). Patient taking differently: Take 1 tablet (0.125 mg) by mouth once daily. Historical MD Mario Active Discontinued 09/23/241755 Discontinued 09/23/241755 Patient not taking: Discontinued 09/21/24918 Discontinued 09/23/241755 metoprolol succinate XL (Toprol-XL) 25 mg 24 hr tablet [id number] Yes Take 1 tablet (25 mg) by mouthonce daily. Do not crush or chew. Historical ProviderMD Active Discontinued 09/23/241755 Discontinued 09/23/241755 pantoprazole (ProtoNix) 40 mg EC tablet [id number] Yes Take 1 tablet (40 mg) by mouth once daily in the morning. Take before meals. Do not crush, chew, or split. Patient taking differently: Take 1 tablet (40 mg) by mouth 2 times a day. Do not crush, chew, or split. Historical ProviderMD Active Discontinued 09/23/241755 psyllium (Metamucil) 3.4 gram packet [id number] Yes Take 1 packet by mouth once daily. Patient taking differently: Take 1 packet by mouth once daily as needed (constipation). Historical ProviderMD Active Discontinued 09/23/241755 sennosides-docusate sodium (Pia-Colace) 8.6-50 mg tablet [id number] Take 1 tablet by mouth once daily at bedtime for 5 days. Patient not taking: Reported on 09/24/2024 Rishabh El MD Active spironolactone (Aldactone) 25 mg tablet [id number] Yes Take 1 tablet (25 mg) by mouth once daily. Radu Kay MD Active sucralfate (Carafate) 1 gram tablet [id number] Yes Take 1 tablet (1 g) by mouth 2 times a day. Historical Provider, Active Discontinued 09/23/241755 Discontinued 09/21/24922 zolpidem (Ambien) 10 mg tablet [id number] Yes Take 1 tablet (10 mg) by mouth as needed at bedtime for sleep. Historical Provider, Active Discontinued 09/23/241755 DISEASE MANAGEMENT ASSESSMENT: CHF ASSESSMENT Symptom/Staging: -Most recent ejection fraction: 40% Guideline-Directed Medical Therapy: -ARNI: No -If no, then ACEi/ARB?: No -Beta Krishan: Yes, describe: Metoprolol XL 25mg every day -MRA: Yes, describe: Spironolactone 25mg every day (SCr 0.92, eGFR 78, K 3.8 (09/23/24)) -SGLT2i: No Secondary Prevention: -The ASCVD Risk score (Jeri TAVAREZ, et al., 2019) failed to calculate for the following reasons: Cannot find a previous HDL lab Cannot find a previous total cholesterol lab Unable to determine if patient is Non- -Aspirin 81mg? no -Statin?: No -HTN?: No CURRENT PHARMACOTHERAPY: GDMT 2/4 Metoprolol XL 25mg every day Spironolactone 25mg every day (SCr 0.92, eGFR 78, K 3.8 (09/23/24)) Furosemide 20mg every day PRN (SCr 0.92, eGFR 78, K 3.8 (09/23/24)) Affordability: Jardiance $181/30ds Adherence/Compliance: reports adherence Adverse Effects: none reported Monitoring Weights at Home: Yes Home Weight Recordings: 112 lbs Past In Office Weight Readings: Wt Readings from Last 6 Encounters: 09/23/24 53.6 kg (118 lb 2.7 oz) 08/15/24 57.3 kg (126 lb 6.4 oz) 03/22/20 54.4 kg (120 lb) Monitoring Blood Pressure at Home: No Past In Office BP Readings: BP Readings from Last 6 Encounters: 09/23/24 120/78 08/15/24 120/59 03/22/20 113/63 HEALTH MANAGEMENT Maintaining fluid restriction (<2 L/day): N/A Edema/swelling: Yes - much improved since hospitalization Shortness of breath: Yes - much improved since hospitalization Trouble sleeping/lying down: No Dry/hacking cough: No Recent Hospitalizations: Yes, describe: 09/20/24 for CHF [facility] EDUCATION/COUNSELING: - Counseled patient on MOA, expectations, duration of therapy, contraindications, administration, and monitoring parameters - Counseled patient on lifestyle modifications that can decrease your risk of having complications (smoking cessation, losing weight, daily weights, vaccines) - Counseled patient on fluid intake and weight management. Recommended to not consume more than 2 liters of fliuids per day. If they have gained more than 2-3 pounds within a 24 hours period (or 5 pounds in a week), contact their metal crafts teacher - Answered all patient questions and concerns DISCUSSION/NOTES: Today was an initial visit to establish with clinical pharmacy. Patient medications and allergies were reviewed and updated. Patient referred to clinical pharmacy for cost assistance for Jardiance. Patient was recently hospitalized for CHF exacerbation. She is improving but still has some edema and SOB with exertion. Screened patient for PAP but patient's 2023 1040 will be slightly over the income requirement. Patient stated 2024 will be significantly decreased and she will qualify for PAP in 2024. For now sent patient's rx to [facility] for delivery and use of copay coupon. Follow up in 1 month to monitor how patient is tolerating the medication. ASSESSMENT: Assessment/Plan Problem List Items Addressed This Visit Cardiomyopathy, hypertrophic nonobstructive (Multi) Patient is currently on / GDMT Metoprolol XL 25mg every day Spironolactone 25mg every day (SCr 0.92, eGFR 78, K 3.8 (09/23/24)) START Jardiance 10mg every day for GDMT optimization Monitor BP, BMP, and HF symptoms. Relevant Medications empagliflozin (Jardiance) 10 mg tablet Other Relevant Orders Referral to Clinical Pharmacy RECOMMENDATIONS/PLAN: START Jardiance 10mg every day CONTINUE Metoprolol XL 25mg every day Spironolactone 25mg every day Furosemide 20mg every day PRN Follow up in 1 month Last Appnt with Referring Provider: 08/15/24 Next Appnt with Referring Provider: 11/21/24 Clinical Pharmacist follow up: 10/29/24 Type of Encounter: Alfonso Man, PharmD Verbal consent to manage patient's drug therapy was obtained from the patient . They were informed they may decline to participate or withdraw from participation in pharmacy services at any time. Continue all meds under the continuation of care with the referring provider and clinical pharmacy team. [1] Allergies Allergen Reactions [place] Anaphylaxis Shellfish Derived Anaphylaxis Tigan [Trimethobenzamide] Anaphylaxis Vicodin [Hydrocodone-Acetaminophen] Shortness of breath Azithromycin Unknown Levofloxacin Unknown Morphine Hives Prozac [Fluoxetine] Other Suicidal ideation Ultram [Tramadol] Hives Codeine Rash [2] No past medical history on file. [3] Current Outpatient Medications on File Prior to Visit Medication Sig Dispense Refill albuterol (Ventolin HFA) 90 mcg/actuation inhaler Inhale 2 puffs every 6 hours if needed for wheezing. ALPRAZolam (Xanax) 0.5 mg tablet Take 1 tablet (0.5 mg) by mouth 2 times a day. doxycycline (Vibramycin) 100 mg capsule Take 1 capsule (100 mg) by mouth every 12 hours for 4 days.Take with a full glass of water and do not lie down for at least 30 minutes after. 8 capsule 0 furosemide (Lasix) 20 mg tablet Take 1 tablet (20 mg) by mouth once daily. (Patient taking differently: Take 1 tablet (20 mg) by mouth once daily as needed (edema).) hyoscyamine (Anaspaz, Levsin) 0.125 mg tablet 1 tablet (0.125 mg). (Patient taking differently: Take 1 tablet (0.125 mg) by mouth once daily.) metoprolol succinate XL (Toprol-XL) 25 mg 24 hr tablet Take 1 tablet (25 mg) by mouth once daily. Do not crush or chew. pantoprazole (ProtoNix) 40 mg EC tablet Take 1 tablet (40 mg) by mouth once daily in the morning. Take before meals. Do not crush, chew, or split. (Patient taking differently: Take 1 tablet (40 mg) by mouth 2 times a day. Do not crush, chew, or split.) psyllium (Metamucil) 3.4 gram packet Take 1 packet by mouth once daily. (Patient taking differently: Take 1 packet by mouth once daily as needed (constipation).) spironolactone (Aldactone) 25 mg tablet Take 1 tablet (25 mg) by mouth once daily. 30 tablet 11 sucralfate (Carafate) 1 gram tablet Take 1 tablet (1 g) by mouth 2 times a day. zolpidem (Ambien) 10 mg tablet Take 1 tablet (10 mg) by mouth as needed at bedtime for sleep. sennosides-docusate sodium (Pia-Colace) 8.6-50 mg tablet Take 1 tablet by mouth once daily at bedtime for 5 days. (Patient not taking: Reported on 09/24/2024) 5 tablet 0 [DISCONTINUED] dicyclomine (Bentyl) 10 mg capsule Take 1 capsule (10 mg) by mouth 3 times a day. (Patient not taking: Reported on 09/21/2024) [DISCONTINUED] empagliflozin (Jardiance) 10 mg tablet Take 1 tablet (10 mg) by mouth once daily. (Patient not taking: Reported on 09/24/2024) 30 tablet 11 [DISCONTINUED] meloxicam (Mobic) 15 mg tablet Take 1 tablet (15 mg) by mouth once daily as needed for mild pain (1 - 3). (Patient not taking: Reported on 09/21/2024) [DISCONTINUED] vortioxetine (Trintellix) 10 mg tablet tablet Take 1 tablet (10 mg) by mouth once daily. Current Facility-Administered Medications on File Prior to Visit Medication Dose Route Frequency Provider Last Rate Last Admin [DISCONTINUED] acetaminophen (Tylenol) oral liquid 650 mg 650 mg oral q4h PRN Boo Saeed MD [DISCONTINUED] acetaminophen (Tylenol) suppository 650 mg 650 mg rectal q4h PRN Boo Saeed MD [DISCONTINUED] acetaminophen (Tylenol) tablet 650 mg 650 mg oral q4h PRN Boo Saeed MD [DISCONTINUED] ALPRAZolam (Xanax) tablet 0.5 mg 0.5 mg oral BID Boo Saeed MD 0.5 mg at 09/23/24829 [DISCONTINUED] doxycycline (Vibra-Tabs) tablet 100 mg 100 mg oral q12h [facility] Rishabh El MD 100 mg at 09/23/2431 [DISCONTINUED] empagliflozin (Jardiance) tablet 10 mg 10 mg oral Daily Boo Saeed MD 10 mg at 09/23/24829 [DISCONTINUED] enoxaparin (Lovenox) syringe 40 mg 40 mg subcutaneous Daily Rishabh El MD 40 mg at 09/23/24 0831 [DISCONTINUED] furosemide (Lasix) injection 40 mg 40 mg intravenous q12h Boo Saeed MD 40 mgat 09/23/24 0952 [DISCONTINUED] HYDROmorphone (Dilaudid) injection 0.2 mg 0.2 mg intravenous q6h PRN Rishahb El MD [DISCONTINUED] HYDROmorphone (Dilaudid) injection 0.5 mg 0.5 mg intravenous q3h PRN Boo Saeed MD 0.5 mg at 09/23/24 1149 [DISCONTINUED] hyoscyamine (Anaspaz) disintegrating tablet 0.125 mg 0.125 mg oral q8h PRN Rishabh El MD [DISCONTINUED] magnesium hydroxide (Milk of Magnesia) 400 mg/5 mL suspension 30 mL 30 mL oral DailyPRN Boo Saeed MD [DISCONTINUED] magnesium oxide (Mag-Ox) 400 mg (241.3 mg elemental) tablet 1 tablet 400 mg of magnesium oxide oral Daily Boo Saeed MD 1 tablet at 09/23/2431 [DISCONTINUED] metoprolol succinate XL (Toprol-XL) 24 hr tablet 25 mg 25 mg oral Daily Rishabh El MD 25 mg at 09/23/2430 [DISCONTINUED] ondansetron (Zofran) injection 4 mg 4 mg intravenous q8h PRN Boo Saeed MD [DISCONTINUED] ondansetron ODT (Zofran-ODT) disintegrating tablet 4 mg 4 mg oral q8h PRN Boo Saeed MD [DISCONTINUED] pantoprazole (ProtoNix) EC tablet 40 mg 40 mg oral Daily before breakfast Boo Saeed MD 40 mg at 09/23/24 0604 [DISCONTINUED] sennosides-docusate sodium (Pia-Colace) 8.6-50 mg per tablet 1 tablet 1 tablet oralNightly Rishabh El MD 1 tablet at 09/22/242045 [DISCONTINUED] sucralfate (Carafate) tablet 1 g 1 g oral BID Boo Saeed MD 1 g at 09/23/2430 [DISCONTINUED] zolpidem (Ambien) tablet 10 mg 10 mg oral Nightly PRN Boo Saeed MD 10 mg at 09/21/242131 documented in this encounterUnSelect [facility] Work Phone: 1(486) 387-817907-13-2025 Nurse Note* Kaela Trejo RN - 09/23/2024 3:48 PM EDT Patient with and given discharge instructions to go home . No questions verbalized. [facility]07-13-2025 Nurse Note* Kaela Trejo RN - 09/23/2024 3:48 PM EDT Patient with and given discharge instructions to go home . No questions verbalized. documented in this encounterPremier Health Work Phone: [phone]) 626-214407-13-2025 Plan of care note* Care Plan - Kaela Trejo RN - 09/23/2024 1:15 PM EDT The patient's goals for the shift include The clinical goals for the shift include monitor intake and output Problem: Heart Failure Goal: Improved urinary output this shift Outcome: Progressing Problem: Heart Failure Goal: Reduction in peripheral edema within 24 hours Outcome: Progressing Problem: Heart Failure Goal: Report improvement of dyspnea/breathlessness this shift Outcome: Progressing [facility] Work Phone: [phone]) 988-533707-13-2025 Miscellaneous Notes* Care Plan - Kaela Trejo RN - 09/23/2024 1:15 PM EDT The patient's goals for the shift include The clinical goals for the shift include monitor intake and output Problem: Heart Failure Goal: Improved urinary output this shift Outcome: Progressing Problem: Heart Failure Goal: Reduction in peripheral edema within 24 hours Outcome: Progressing Problem: Heart Failure Goal: Report improvement of dyspnea/breathlessness this shift Outcome: Progressing * Care Plan - Anisha Sheldon RN - 09/23/2024 5:20 AM EDT The clinical goals for the shift include pain control Over the shift, the patient made progress toward pain control with PRN pain medication. Rates lowest pain a 5/10. * Assessment & Plan Note - Rishabh El MD - 09/22/2024 2:18 PM EDTAssociated Problem(s): Acute exacerbation of chronic heart failure (Resolved 09/23/2024) 44-year-old female with a past medical history of hypertrophic obstructive cardiomyopathy, systoliccongestive heart failure s/p ICD placement, pericarditis, nicotine dependence, breast cancer at theage of 18 s/p lumpectomy and chemotherapy, ovarian cancer status post oophorectomy, endometrial cancer s/p ablation, DVT/PE in 2017 not on anticoagulation anymore, biliary duct obstruction s/p stent placement, anxiety, depression, peptic ulcer disease, GERD, leg abscess, migraine who presented to the emergency room for shortness of breath and concerns of worsening edema. Blood workup showed significantly elevated BNP, hypomagnesemia, and leukocytosis. CT scan of the chest showed mild interstitial pulmonary edema and a small right-sided pleural effusion. CT scan of the abdomen and pelvis showed vascular congestion of the liver. Trend liver enzymes, unclear if cardiac etiology involved Troponin leak from nonischemic myocardial injury Plan telemetry and vital signs monitoring. Follow clinically Follow cardiology, echocardiogram Continue with Lasix 40 mg IV twice a day and monitor his ins and outs closely. Repeat BMP tomorrow. Leukocytosis is most likely reactive. Repeat CBC tomorrow. C/w current home medications Pain control with Dilaudid IV, Magnesium supplement, hyoscyamine, Protonix, Carafate, alprazolam, Patient had sudden onset severe right flank pain, although CT abdomen pelvis did not show any kidney stones but to repeat CT abdomen pelvis due to excruciating sudden onset pain in abdomen. Check lactate as well. It could be spasm or irritable bowel. Hemodynamically stable no back pain Supportive care, education and counseling Symptomatic management SCDs for DVT prophylaxis with Lovenox Patient is full code * Care Plan - Kaela Trejo RN - 09/22/2024 1:36 PM EDT The patient's goals for the shift include The clinical goals for the shift include monitor intake and output Problem: Heart Failure Goal: Reduction in peripheral edema within 24 hours Outcome: Progressing Problem: Heart Failure Goal: Report improvement of dyspnea/breathlessness this shift Outcome: Progressing Problem: Heart Failure Goal: Improved urinary output this shift Outcome: Progressing * Significant Event - Rishabh El MD - 09/21/2024 5:02 PM EDT Patient was seen and examined, admitted overnight. Reviewed chart and agree with assessment plan * Care Plan - Alexa Brown RN - 09/21/2024 7:48 AM EDT The clinical goals for the shift include no SOB, response to lasix Problem: Heart Failure Goal: Improved gas exchange this shift Outcome: Progressing Problem: Heart Failure Goal: Weight from fluid excess reduced over 2-3 days, then stabilize Outcome: Progressing Problem: Heart Failure Goal: Report improvement of dyspnea/breathlessness this shift Outcome: Progressing * Care Plan - Kassidy Estrada RN - 09/21/2024 6:09 AM EDT The patient's goals for the shift include The clinical goals for the shift include manage chest pain, no shortness of breath Problem: Heart Failure Goal: Improved gas exchange this shift Outcome: Progressing Goal: Improved urinary output this shift Outcome: Progressing Goal: Reduction in peripheral edema within 24 hours Outcome: Progressing Goal: Report improvement of dyspnea/breathlessness this shift Outcome: Progressing Goal: Weight from fluid excess reduced over 2-3 days, then stabilize Outcome: Progressing Goal: Increase self care and/or family involvement in 24 hours Outcome: Progressing Problem: Pain - Adult Goal: Verbalizes/displays adequate comfort level or baseline comfort level Outcome: Progressing Problem: Safety - Adult Goal: Free from fall injury Outcome: Progressing Problem: Discharge Planning Goal: Discharge to home or other facility with appropriate resources Outcome: Progressing Problem: Chronic Conditions and Co-morbidities Goal: Patient's chronic conditions and co-morbidity symptoms are monitored and maintained or improved Outcome: Progressing Problem: Nutrition Goal: Nutrient intake appropriate for maintaining nutritional needs Outcome: Progressing * Assessment & Plan Note - Boo Saeed MD - 09/21/2024 5:59 AM EDT Associated Problem(s): Acute exacerbation of chronic heart failure (Resolved 09/23/2024) 44-year-old female with a past medical history of hypertrophic obstructive cardiomyopathy, systoliccongestive heart failure s/p ICD placement, pericarditis, nicotine dependence, breast cancer at theage of 18 s/p lumpectomy and chemotherapy, ovarian cancer status post oophorectomy, endometrial cancer s/p ablation, DVT/PE in 2017 not on anticoagulation anymore, biliary duct obstruction s/p stent placement, anxiety, depression, peptic ulcer disease, GERD, leg abscess, migraine who presented to the emergency room for shortness of breath and concerns of worsening edema. Blood workup showed significantly elevated BNP, hypomagnesemia, and leukocytosis. CT scan of the chest showed mild interstitial pulmonary edema and a small right-sided pleural effusion. CT scan of the abdomen and pelvis showed vascular congestion of the liver. I will admit the patient to the inpatient medical service with telemetry and vital signs monitoring. Consult cardiology Continue with Lasix 40 mg IV twice a day and monitor his ins and outs closely. Repeat BMP tomorrow. Leukocytosis is most likely reactive. Repeat CBC tomorrow. Resume home medications SCDs for DVT prophylaxis Patient is full code documented in this [facility] Work Phone: [phone] History of Present illness Narrative* Jaxson Osorio MD - 09/23/2024 1:10 PM EDT Subjective Data: Patient reports feeling well, no new adverse events overnight. Patient denies any chest pain, shortness of breath, palpitations, dizziness or syncope. Patient is hemodynamically stable. Overnight Events: No Objective Data: Last Recorded Vitals: Vitals: 09/22/24199909/23/24 0400 09/23/24 0607 09/23/24 0806 BP: 113/71 127/88 120/78 BP Location: Right arm Right arm Right arm Patient Position: Sitting Lying Lying Pulse: 63 68 70 Resp: 16 16 16 Temp: 35.7 C (96.3 F) 35.8 C (96.4 F) 36.1 C (97 F) TempSrc: Temporal Temporal Temporal SpO2: 98% 96% 98% Weight: 53.6 kg (118 lb 2.7 oz) Height: Last Labs: CBC - 09/23/2024: 6:01 AM 13.9 16.6 326 49.8 CMP - 09/23/2024: 6:01 AM 9.9 6.5 24 --- 1.0 _ 4.2 212 105 PTT - No results in last year. _ _ _ TROPHS Date/Time Value Ref Range Status 09/21/2024 01:11 AM 48 0 - 13 ng/L Final 09/21/2024 12:05 AM 49 0 - 13 ng/L Final BNP Date/Time Value Ref Range Status 09/21/2024 12:05 AM >4,700 0 - 99 pg/mL Final HGBA1C Date/Time Value Ref Range Status 07/25/2024 06:53 AM 5.5 4.3 - 5.6 % Final Comment: [place] [employer] guidelines indicate that patients with HgbA1c in the range 5.7-6.4% are at increased risk for development of diabetes, and intervention by lifestyle modification may be beneficial. HgbA1c greater or equal to 6.5% is considered diagnostic of diabetes. 04/25/2021 08:44 AM 5.2 4.3 - 5.6 % Final Comment: [place] [employer] guidelines indicate that patients with HgbA1c in the range 5.7-6.4% are at increased risk for development of diabetes, and intervention by lifestyle modification may be beneficial. HgbA1c greater or equal to 6.5% is considered diagnostic of diabetes. Last I/O: I/O last 3 completed shifts: In: 2750 (51.3 mL/kg) [P.O.:2750] Out: 9200 (171.6 mL/kg) [Urine:9200 (4.8 mL/kg/hr)] Weight: 53.6 kg Past Cardiology Tests (Last 3 Years): EKG: ECG 12 lead 08/23/2024 (Preliminary) Echo: No results found for this or any previous visit from the past 1095 days. Ejection Fractions: No results found for: EF Cath: No results found for this or any previous visit from the past 1095 days. Stress Test: No results found for this or any previous visit from the past 1095 days. Cardiac Imaging: No results found for this or any previous visit from the past 1095 days. Inpatient Medications: Scheduled Medications[1] PRN Medications[2] Continuous Medications[3] Physical Exam: General: alert, oriented and in no acute distress HEENT: NC/AT; EOMI; PERRLA, external ear is normal Neck: supple; trachea midline; no masses; no JVD Chest: diminished breath sounds bilaterally; crackles b/l Cardio: regular rhythm, S1S2 normal, systolic murmur 2+/6+ LLSB Abdomen: Soft, non-tender, non-distension, no organomegaly Extremities: no clubbing/cyanosis/edema Neuro: Grossly intact Psychiatric: Normal mood and affect Assessment/Plan Mrs. Michelle Mitchell is a 44 y.o. current everyday smoker female being consulted by the Cardiology team for CHF. Patient with past medical history significant for hypertrophic obstructive cardiomyopathy, HF with recovered LVEF (LVEF 35% --> 55%), S/P ICD placement, prior pulmonary embolism, nicotine dependence, breast cancer at the age of 18 s/p lumpectomy and chemotherapy, ovarian cancer status post oophorectomy, endometrial cancer s/p ablation, DVT/PE in 2017 not on anticoagulation anymore, biliary duct obstruction s/p stent placement, anxiety, depression, peptic ulcer disease, GERD, leg abscess, migraine. She presented to ED [facility] on 09/21/2024 complaining of progressively worsening shortness of breath on exertion associated with weight gain and abdominal blunting, no leg edema (she usually has abdominal edema instead of leg edema per patient). She denied chest pain, lightheadedness, headaches, fever, chills, bleeding, orthopnea, paroxysmal nocturnal dyspnea or syncope.In the ED, blood pressure stable 121/78mmHg, heart rate 60bpm, afebrile, SpO2 97% on room air. Labsshowing magnesium 1.57, WBC 15,500. CT scan of the chest showed mild interstitial pulmonary edema and a small right-sided pleural effusion. CT scan of the abdomen and pelvis showed vascular congestion of the liver. Trop 48 - 49. BNP > 4,700. EKG showed normal sinus rhythm with incomplete RBBB andno signs of acute ischemic changes. She has been started on IV Lasix and has been admitted for clinical compensation. Assessment # hypertrophic obstructive cardiomyopathy / Heart Failure AHA/ACC stage C with recovered LVEF 35% --> 55% / NYHA Classification III - BNP > 4,700 - Trop 48 - 49. - Patient looks warm and wet. - EKG showed normal sinus rhythm with incomplete RBBB and no signs of acute ischemic changes. - Echo (07/2024 - [facility]): - The left ventricle is normal in [...] the prior echocardiographic exam performed on 04/25/2021 ([facility]). Mobile echodensity reported today as above. MICKI may better assesss. - Keep daily weights. Patient's admission weight is 130 lb. - Low sodium diet (2g). - 1500mL fluid restriction. - Strict I&Os. - Electrolyte control and daily BMP including magnesium. - General recommendations for heart failure, including low-sodium diet, fluid restriction, daily weight and adherence to medication. - Patient continues to be volume overloaded based on clinical presentation. We suggest to keep diuresing. - Keep Furosemide 40mg IV daily. - Keep Metoprolol succinate 25mg daily. - Keep Spironolactone 25mg daily. - Keep empagliflozin 10mg daily. - Echocardiogram results pending. - Please refer the patient to Cardiology Clinic upon discharge. # S/P ICD placement - Device interrogation. - Follow up with EP team. # Smoking - We had a thorough conversation with the patient (~3min) addressing the hazard risks for smoking, including but not limited to heart attack, stroke and cancer. Thank you for allowing me to participate in the care of this patient. Please reach me out if you have any questions or if you need any clarifications regarding the patient's care. Peripheral IV 09/21/24 20 G Left Forearm (Active) Site Assessment Clean;Dry;Intact 09/23/24830 Dressing Status Clean;Dry;Occlusive 09/23/24830 Number of days: 2 Code Status: Full Code Jaxson Osorio MD Cardiology [1] Scheduled medications Medication Dose Route Frequency ALPRAZolam 0.5 mg oral BID doxycylcine 100 mg oral q12h PIA empagliflozin 10 mg oral Daily enoxaparin 40 mg subcutaneous Daily furosemide 40 mg intravenous q12h magnesium oxide 400 mg of magnesium oxide oral Daily metoprolol succinate XL 25 mg oral Daily pantoprazole 40 mg oral Daily before breakfast sennosides-docusate sodium 1 tablet oral Nightly sucralfate 1 g oral BID [2] PRN medications Medication acetaminophen Or acetaminophen Or acetaminophen HYDROmorphone HYDROmorphone hyoscyamine magnesium hydroxide ondansetron ODT Or ondansetron zolpidem [3] Continuous Medications Medication Dose Last Rate * Jaxson Osorio MD - 09/22/2024 2:40 PM EDT Subjective Data: Patient reports feeling well, no new adverse events overnight. Patient denies any chest pain, shortness of breath, palpitations, dizziness or syncope. Patient is hemodynamically stable. Overnight Events: No Objective Data: Last Recorded Vitals: Vitals: 09/22/24 0003 09/22/24 0315 09/22/24 0508 09/22/24 0812 BP: 124/86 135/90 126/85 BP Location: Right arm Right arm Right arm Patient Position: Sitting Lying Sitting Pulse: 65 59 63 Resp: 22 20 18 Temp: 36.2 C (97.2 F) 36.7 C (98.1 F) 36.5 C (97.7 F) TempSrc: Temporal Temporal Temporal SpO2: 99% 97% 91% Weight: 54.2 kg (119 lb 7.8 oz) Height: Last Labs: CBC - 09/22/2024: 4:35 AM 12.8 15.1 319 46.4 CMP - 09/22/2024: 4:35 AM 10.4 6.5 24 --- 1.0 _ 4.2 212 105 PTT - No results in last year. _ _ _ TROPHS Date/Time Value Ref Range Status 09/21/2024 01:11 AM 48 0 - 13 ng/L Final 09/21/2024 12:05 AM 49 0 - 13 ng/L Final BNP Date/Time Value Ref Range Status 09/21/2024 12:05 AM >4,700 0 - 99 pg/mL Final HGBA1C Date/Time Value Ref Range Status 07/25/2024 06:53 AM 5.5 4.3 - 5.6 % Final Comment: [place] [employer] guidelines indicate that patients with HgbA1c in the range 5.7-6.4% are at increased risk for development of diabetes, and intervention by lifestyle modification may be beneficial. HgbA1c greater or equal to 6.5% is considered diagnostic of diabetes. 04/25/2021 08:44 AM 5.2 4.3 - 5.6 % Final Comment: [place] [employer] guidelines indicate that patients with HgbA1c in the range 5.7-6.4% are at increased risk for development of diabetes, and intervention by lifestyle modification may be beneficial. HgbA1c greater or equal to 6.5% is considered diagnostic of diabetes. Last I/O: I/O last 3 completed shifts: In: 2400 (44.3 mL/kg) [P.O.:2400] Out: 9300 (171.6 mL/kg) [Urine:9300 (4.8 mL/kg/hr)] Weight: 54.2 kg Past Cardiology Tests (Last 3 Years): EKG: ECG 12 lead 08/23/2024 (Preliminary) Echo: No results found for this or any previous visit from the past 1095 days. Ejection Fractions: No results found for: EF Cath: No results found for this or any previous visit from the past 1095 days. Stress Test: No results found for this or any previous visit from the past 1095 days. Cardiac Imaging: No results found for this or any previous visit from the past 1095 days. Inpatient Medications: Scheduled Medications[1] PRN Medications[2] Continuous Medications[3] Physical Exam: General: alert, oriented and in no acute distress HEENT: NC/AT; EOMI; PERRLA, external ear is normal Neck: supple; trachea midline; no masses; no JVD Chest: diminished breath sounds bilaterally; crackles b/l Cardio: regular rhythm, S1S2 normal, systolic murmur 2+/6+ LLSB Abdomen: Soft, non-tender, non-distension, no organomegaly Extremities: no clubbing/cyanosis/edema Neuro: Grossly intact Psychiatric: Normal mood and affect Assessment/Plan Mrs. Michelle Mitchell is a 44 y.o. current everyday smoker female being consulted by the Cardiology team for CHF. Patient with past medical history significant for hypertrophic obstructive cardiomyopathy, HF with recovered LVEF (LVEF 35% --> 55%), S/P ICD placement, prior pulmonary embolism, nicotine dependence, breast cancer at the age of 18 s/p lumpectomy and chemotherapy, ovarian cancer status post oophorectomy, endometrial cancer s/p ablation, DVT/PE in 2017 not on anticoagulation anymore, biliary duct obstruction s/p stent placement, anxiety, depression, peptic ulcer disease, GERD, leg abscess, migraine. She presented to ED [facility] on 09/21/2024 complaining of progressively worsening shortness of breath on exertion associated with weight gain and abdominal blunting, no leg edema (she usually has abdominal edema instead of leg edema per patient). She denied chest pain, lightheadedness, headaches, fever, chills, bleeding, orthopnea, paroxysmal nocturnal dyspnea or syncope.In the ED, blood pressure stable 121/78mmHg, heart rate 60bpm, afebrile, SpO2 97% on room air. Labsshowing magnesium 1.57, WBC 15,500. CT scan of the chest showed mild interstitial pulmonary edema and a small right-sided pleural effusion. CT scan of the abdomen and pelvis showed vascular congestion of the liver. Trop 48 - 49. BNP > 4,700. EKG showed normal sinus rhythm with incomplete RBBB andno signs of acute ischemic changes. She has been started on IV Lasix and has been admitted for clinical compensation. Assessment # hypertrophic obstructive cardiomyopathy / Heart Failure AHA/ACC stage C with recovered LVEF 35% --> 55% / NYHA Classification III - BNP > 4,700 - Trop 48 - 49. - Patient looks warm and wet. - EKG showed normal sinus rhythm with incomplete RBBB and no signs of acute ischemic changes. - Echo (07/2024 - [facility]): - The left ventricle is normal in [...] the prior echocardiographic exam performed on 04/25/2021 ([facility]). Mobile echodensity reported today as above. MICKI may better assesss. - Keep daily weights. Patient's admission weight is 130 lb. - Low sodium diet (2g). - 1500mL fluid restriction. - Strict I&Os. - Electrolyte control and daily BMP including magnesium. - General recommendations for heart failure, including low-sodium diet, fluid restriction, daily weight and adherence to medication. - Patient continues to be volume overloaded based on clinical presentation. We suggest to keep diuresing. - Keep Furosemide 40mg IV daily. - Keep Metoprolol succinate 25mg daily. - Keep Spironolactone 25mg daily. - Keep empagliflozin 10mg daily. - Echocardiogram results pending. - Please refer the patient to Cardiology Clinic upon discharge. # S/P ICD placement - Device interrogation. - Follow up with EP team. # Smoking - We had a thorough conversation with the patient (~3min) addressing the hazard risks for smoking, including but not limited to heart attack, stroke and cancer. Thank you for allowing me to participate in the care of this patient. Please reach me out if you have any questions or if you need any clarifications regarding the patient's care. Peripheral IV 09/21/24 20 G Left Forearm (Active) Site Assessment Clean;Dry;Intact 09/22/24824 Dressing Status Clean;Dry;Occlusive 09/22/24824 Number of days: 1 Code Status: Full Code Jaxson Osorio MD Cardiology [1] Scheduled medications Medication Dose Route Frequency ALPRAZolam 0.5 mg oral BID empagliflozin 10 mg oral Daily enoxaparin 40 mg subcutaneous Daily furosemide 40 mg intravenous q12h magnesium oxide 400 mg of magnesium oxide oral Daily pantoprazole 40 mg oral Daily before breakfast sennosides-docusate sodium 1 tablet oral Nightly sucralfate 1 g oral BID [2] PRN medications Medication acetaminophen Or acetaminophen Or acetaminophen HYDROmorphone HYDROmorphone hyoscyamine magnesium hydroxide ondansetron ODT Or ondansetron zolpidem [3] Continuous Medications Medication Dose Last Rate * Rishabh El MD - 09/22/2024 2:06 PM EDT Michelle Mitchell is a 44 y.o. female on day 1 of admission presenting with Acute exacerbation of chronic heart failure. Subjective Complaint of right flank pain today No fever chills nausea vomiting She also mentioned about hematuria which is new According to RN, it was delma-colored Denies significant exertional symptoms of dyspnea but she still has some shortness of breath but nochest pain Denies profound leg swelling No lightheadedness or syncope No bleeding Objective Physical Exam General Appearance: AAO x 3, Skin: skin color pink, warm, and dry; no suspicious rashes or lesions Eyes : PERRL, EOM's intact ENT: mucous membranes pink and moist Neck: normocephalic Respiratory: lungs clear to auscultation anteriorly; no wheezing, rhonchi, or crackles. Heart: regular rate and rhythm. Abdomen: Nondistended, positive bowel sounds x4, soft, tender Extremities: no edema Peripheral pulses: normal x4 extremities Neuro: alert, coherent and conversant, no focal motor deficits Last Recorded Vitals Blood pressure 126/85, pulse 63, temperature 36.5 C (97.7 F), temperature source Temporal, resp. rate 18, height 1.626 m (5' 4), weight 54.2 kg (119 lb 7.8 oz), SpO2 91%. Intake/Output last 3 Shifts: I/O last 3 completed shifts: In: 2400 (44.3 mL/kg) [P.O.:2400] Out: 9300 (171.6 mL/kg) [Urine:9300 (4.8 mL/kg/hr)] Weight: 54.2 kg Relevant Results Results for orders placed or performed during the hospital encounter of 09/20/24 (from the past 24 hours) Basic metabolic panel Result Value Ref Range Glucose 84 74 - 99 mg/dL Sodium 136 136 - 145 mmol/L Potassium 3.6 3.5 - 5.3 mmol/L Chloride 96 (L) 98 - 107 mmol/L Bicarbonate 31 21 - 32 mmol/L Anion Gap 13 10 - 20 mmol/L Urea Nitrogen 25 (H) 6 - 23 mg/dL Creatinine 0.95 0.50 - 1.05 mg/dL eGFR 75 >60 mL/min/1.73m*2 Calcium 10.4 (H) 8.6 - 10.3 mg/dL CBC Result Value Ref Range WBC 12.8 (H) 4.4 - 11.3 x10*3/uL nRBC 0.0 0.0 - 0.0 /100 WBCs RBC 4.95 4.00 - 5.20 x10*6/uL Hemoglobin 15.1 12.0 - 16.0 g/dL Hematocrit 46.4 (H) 36.0 - 46.0 % MCV 94 80 - 100 fL MCH 30.5 26.0 - 34.0 pg MCHC 32.5 32.0 - 36.0 g/dL RDW 14.6 (H) 11.5 - 14.5 % Platelets 319 150 - 450 x10*3/uL Lactate Result Value Ref Range Lactate 1.2 0.4 - 2.0 mmol/L CT abdomen pelvis wo IV contrast Result Date: 09/22/2024 Interpreted By: Giacomo Soriano, STUDY: CT ABDOMEN PELVIS WO IV CONTRAST; 09/22/2024 11:47 am INDICATION: Signs/Symptoms:rt flank pain ro kidney stones hematuria. COMPARISON: 09/21/2024 ACCESSION NUMBER(S): [id number] ORDERING CLINICIAN: RISHABH EL TECHNIQUE: CT of the abdomen and pelvis was performed without IV contrast. Sagittal and coronal reconstructions. FINDINGS: Limited evaluation for solid organs and vasculature without intravenous contrast. Lower Chest: Cardiomegaly. Partially visualized cardiac device lead. Small area of consolidation the left lower lobe along the pulmonary fissure. Calcified granuloma in the right lower lobe. Liver: The liver is unremarkable without focal lesion. Gallbladder and Biliary: Status post cholecystectomy. CBD stent. Pneumobilia. Pancreas: Pancreatic stent. Spleen: No abnormality identified in the spleen. Adrenals: No abnormality identified in either adrenal gland. Urinary: No parenchymal abnormality identified in either kidney. No hydronephrosis. Gastrointestinal/Peritoneum: No small or large bowel obstruction in the visualized abdomen. In the abdomen, there is no extraluminal air. Small nonspecific pelvic free fluid. Moderate colonic stool burden. Sigmoid colonic diverticulosis. Sutures along the cecum, correlate for prior appendectomy. Vascular: Abdominal aorta is normal in caliber. Atherosclerosis. Lymphatics: No enlarged lymph nodes by size criteria. MSK/Body Wall: No aggressive bony lesion identified. 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 Small area of consolidation in the left lower lobe raising suspicion for pneumonia. Moderate colonic stool burden, correlate for constipation. Sigmoid colonic diverticulosis. Signed by: Giacomo Soriano 09/22/2024 1:15 PM Dictation workstation: [id number] CT abdomen pelvis w IV contrast Result Date: 09/21/2024 Interpreted By: Deondre Davila, STUDY: CT ABDOMEN PELVIS W IV CONTRAST; 09/21/2024 1:33 am INDICATION: Signs/Symptoms:abd pain. COMPARISON: Same day CTA of the chest. ACCESSION NUMBER(S): [id number] ORDERING CLINICIAN: ROCKY EVERETT TECHNIQUE: Contiguous axial images of the abdomen and pelvis were obtained after the intravenous administration of 75 mL of Omnipaque 350 iodinated contrast.Coronal and sagittal reformatted images were reconstructed from the axial data. FINDINGS: LOWER CHEST: Please refer to separately dictated same day CTA of the chest for further characterization of the thoracic findings. ABDOMEN/PELVIS: ABDOMINAL WALL: Cutaneous tissues of the abdomen and pelvis demo nstrate mild third-spacing. No acute abnormality is otherwise present. LIVER: Liver is somewhat heterogeneous in attenuation and demonstrates diffusely decreased density compared to the spleen, suggestive of underlying vascular congestion and/or fatty infiltration. Portal vein is unremarkable in appearance. BILE DUCTS: There is no evidence of intrahepatic or extrahepatic biliary dilatation. A metallic stent is visualized in the common bile duct, with trace intrahepatic and extrahepatic pneumobilia. Distal end of the stent terminates within the duodenum. GALLBLADDER: Gallbladder is not visualized, and is likely surgically absent. PANCREAS: A metallic stent is visualized within the proximal pancreatic duct, traversing into the duodenum. No pancreatic ductal dilatation or peripancreatic stranding is evident. SPLEEN: No acute splenic abnormality is identified. ADRENALS: Adrenal glands do not demonstrate any acute abnormality bilaterally. KIDNEYS, URETERS, BLADDER: Kidneys are symmetric insize and enhancement without evidence of hydronephrosis or radiopaque nephrolithiasis. Upper ureters do not demonstrate any acute abnormality. Mild bladder wall thickening is present, possibly due toincomplete distention. REPRODUCTIVE ORGANS: Uterus is present without evidence of adnexal masses orfluid collections. Large cluster of left-sided peripelvic veins is present. VESSELS: No acute vascular abnormality is identified. RETROPERITONEUM/LYMPH NODES: No acute retroperitoneal abnormality. Noenlarged lymph nodes. BOWEL/MESENTERY/PERITONEUM: No inflammatory bowel wall thickening or dilatation. Appendix is not definitely identified and may be surgically absent. Scattered diverticula are present in the distal descending and sigmoid colon without evidence of acute diverticulitis. Small to moderate volume of fluid is present in the lower abdomen and pelvis. Additional small pocket of fluid is present in the ana m hepatis and along the right hepatic lobe. MUSCULOSKELETAL: No acute osseous abnormality. No suspicious osseous lesion. 1. Constellation of the imaging findings suggestive of hypovolemia/fluid overload, including borderline enlarged, heterogeneously attenuating liver suggestive of underlying vascular congestion, although component of fatty infiltration not excluded. Small to moderate volume of fluid is present in the abdomen and pelvis. 2. Mild circumferential bladder wall thickening may be due to incomplete distention, although correlation with urinalysis to exclude any underlying cystitis is recommended. 3. Metallic stents are visualized in the common bile duct and in the proximal pancreatic duct, and terminate in the duodenum. There is trace intrahepatic and extrahepatic pneumobilia without evidence of biliary dilatation. 4. Additional findings as described above. MACRO: None. Signed by: Deondre Davila 09/21/2024 1:44 AM Dictation workstation: [id number] CT angio chest for pulmonary embolism Result Date: 09/21/2024 Interpreted By: Deondre Davila, STUDY: CT ANGIO CHEST FOR PULMONARY EMBOLISM; 09/21/2024 1:31am INDICATION: Signs/Symptoms:sob - hx of PE - not anticoagulated. COMPARISON: None ACCESSION NUMBER(S): [id number] ORDERING CLINICIAN: ROCKY EVERETT TECHNIQUE: Helical data acquisition of the chest was obtained after intravenous administration of 68 ML Omnipaque 350, as per PE protocol. Images were reformatted in coronal and sagittal planes. Axial and coronal maximum intensity projection (MIP) images were created and reviewed. FINDINGS: POTENTIAL LIMITATIONS OF THE STUDY: Images are somewhat degraded by beam hardening artifact from the contrast bolus in the left subclavian vein and contrast bolus from the right chest wall pacemaker. HEART AND VESSELS: No large central pulmonary embolismis present through the segmental level. Main pulmonary artery and its branches are normal in caliber. The thoracic aorta normal in course and caliber.Minimal vascular calcifications are present in the thoracic aorta.Near non-opacification of thoracic aorta precludes assessment for acute aortic pathology. No coronary artery calcifications are seen. Please note, the study is not optimized for evaluation of coronary arteries. There is mild 4 chamber cardiomegaly.There are no findings to suggest right heart strain. There is a right subclavian approach dual chamber cardiac pacemaker/ICD seen in jennifer cewith leads terminating within right atrium and apical right ventricle. There is no pericardial effusion seen. MEDIASTINUM AND JULISSA, LOWER NECK AND AXILLA: The visualized thyroid gland is within normal limits. No evidence of thoracic lymphadenopathy by CT criteria. Esophagus appears within normal limits as seen. LUNGS AND AIRWAYS: The trachea and central airways are patent. No endobronchial lesion is seen.Again central Small right-sided pleural effusion is present, with interstitial thickeningand geographic ground-glass opacity is present in the lungs bilaterally, suggestive of underlying interstitial and pulmonary edema. Small amount of fluid is also present along the fissures in the lungs bilaterally. There is no evidence of pneumothorax. UPPER ABDOMEN: Please refer to separately dictated same day CT of the abdomen and pelvis for further characterization of the abdominal findings. CHEST WALL AND OSSEOUS STRUCTURES: Chest wall is within normal limits. No acute osseous pathology.There are no suspicious osseous lesions.No acute abnormality is identified in the thoracic spine. 1. No evidence of the large central pulmonary embolism through the segmental level. Of the aerationof the smaller vessels is degraded by beam hardening artifact from the contrast bolus in the left subclavian vein and contrast bolus from the right subclavian approach pacemaker. 2. Small right-sidedpleural effusion with mild interstitial and pulmonary edema are present in the lungs bilaterally. Some fluid is present along the fissures in the lower lobes, [id number]. 3. Mild cardiomegaly with some reflux of contrast into the hepatic veins and IVC, findings that may be seen in the setting of early right heart strain. Correlate with echocardiogram. MACRO: None Signed by: Deondre Davila 09/21/2024 1:38 AM Dictation workstation: [id number] Scheduled medications Scheduled Medications[1] Continuous medications Continuous Medications[2] PRN medications PRN Medications[3] Assessment & Plan Acute exacerbation of chronic heart failure 44-year-old female with a past medical history of hypertrophic obstructive cardiomyopathy, systoliccongestive heart failure s/p ICD placement, pericarditis, nicotine dependence, breast cancer at theage of 18 s/p lumpectomy and chemotherapy, ovarian cancer status post oophorectomy, endometrial cancer s/p ablation, DVT/PE in 2017 not on anticoagulation anymore, biliary duct obstruction s/p stent placement, anxiety, depression, peptic ulcer disease, GERD, leg abscess, migraine who presented to the emergency room for shortness of breath and concerns of worsening edema. Blood workup showed significantly elevated BNP, hypomagnesemia, and leukocytosis. CT scan of the chest showed mild interstitial pulmonary edema and a small right-sided pleural effusion. CT scan of the abdomen and pelvis showed vascular congestion of the liver. Trend liver enzymes, unclear if cardiac etiology involved Troponin leak from nonischemic myocardial injury Plan telemetry and vital signs monitoring. Follow clinically Follow cardiology, echocardiogram Continue with Lasix 40 mg IV twice a day and monitor his ins and outs closely. Repeat BMP tomorrow. Leukocytosis is most likely reactive. Repeat CBC tomorrow. C/w current home medications Pain control with Dilaudid IV, Magnesium supplement, hyoscyamine, Protonix, Carafate, alprazolam, Patient had sudden onset severe right flank pain, although CT abdomen pelvis did not show any kidney stones but to repeat CT abdomen pelvis due to excruciating sudden onset pain in abdomen. Check lactate as well. It could be spasm or irritable bowel. Hemodynamically stable no back pain Supportive care, education and counseling Symptomatic management SCDs for DVT prophylaxis with Lovenox Patient is full code Rishabh El MD [1] ALPRAZolam, 0.5 mg, oral, BID empagliflozin, 10 mg, oral, Daily enoxaparin, 40 mg, subcutaneous, Daily furosemide, 40 mg, intravenous, q12h magnesium oxide, 400 mg of magnesium oxide, oral, Daily pantoprazole, 40 mg, oral, Daily before breakfast sucralfate, 1 g, oral, BID [2] [3] PRN medications: acetaminophen OR acetaminophen OR acetaminophen, HYDROmorphone, HYDROmorphone, hyoscyamine, magnesium hydroxide, ondansetron ODT OR ondansetron, zolpidem * Marilee Roque RN - 09/21/2024 3:00 PM EDT 09/21/24 1500 Discharge Planning Living Arrangements Spouse/significant other Support Systems Spouse/significant other Assistance Needed none Type of Residence Private residence Number of Stairs to Enter Residence 14 Number of Stairs Within Residence 0 Do you have animals or pets at home? Yes Type of Animals or Pets 3 cats Who is requesting discharge planning? Provider Home or Post Acute Services None Expected Discharge Disposition Home Does the patient need discharge transport arranged? No Financial Resource Strain How hard is it for you to pay for the very basics like food, housing, medical care, and heating? Hard Housing Stability In the last 12 months, was there a time when you were not able to pay the mortgage or rent on time?Y In the past 12 months, how many times have you moved where you were living? 0 At any time in the past 12 months, were you homeless or living in a retirement (including now)? N Transportation Needs In the past 12 months, has lack of transportation kept you from medical appointments or from getting medications? no In the past 12 months, has lack of transportation kept you from meetings, work, or from getting things needed for daily living? No Stroke Family Assessment Stroke Family Assessment Needed No Intensity of Service Intensity of Service 0-30 min Met with pt at the bedside and verified address, phone number and emergency contact information. PCP is Jaja last seen in July and preferred pharmacy is [facility], denies issues obtaining or affording medications and takes as ordered. Pt is independent, lives at home with and feels safe. Plans to return home no new needs at this time. Pt is aware to reach out to CT if needs should change. [facility] . ADOD 24-.Care Transitions to follow. Marilee Jain BSN/RN-TCC documented in this [facility] Work Phone: [phone]) [phone] Hospital course Narrative* Rishabh El MD - 09/23/2024 12:26 PM EDT Discharge Diagnosis Acute exacerbation of chronic heart failure Issues Requiring Follow-Up Cardiology Discharge Meds Medication List START taking these medications doxycycline 100 mg capsule; Commonly known as: Vibramycin; Take 1 capsule (100 mg) by mouth every 12 hours for 4 days. Take with a full glass of water and do not lie down for at least 30 minutes after. sennosides-docusate sodium 8.6-50 mg tablet; Commonly known as: Pia-Colace; Take 1 tablet by mouth once daily at bedtime for 5 days. CONTINUE taking these medications ALPRAZolam 0.5 mg tablet; Commonly known as: Xanax Ambien 10 mg tablet; Generic drug: zolpidem empagliflozin 10 mg tablet; Commonly known as: Jardiance; Take 1 tablet (10 mg) by mouth once daily. furosemide 20 mg tablet; Commonly known as: Lasix hyoscyamine 0.125 mg tablet; Commonly known as: Anaspaz, Levsin metoprolol succinate XL 25 mg 24 hr tablet; Commonly known as: Toprol-XL pantoprazole 40 mg EC tablet; Commonly known as: ProtoNix psyllium 3.4 gram packet; Commonly known as: Metamucil spironolactone 25 mg tablet; Commonly known as: Aldactone; Take 1 tablet (25 mg) by mouth once daily. sucralfate 1 gram tablet; Commonly known as: Carafate Ventolin HFA 90 mcg/actuation inhaler; Generic drug: albuterol Test Results Pending At Discharge Pending Labs Order Current Status Extra Urine Garcia Tube Collected (09/21/24 0006) Procalcitonin In process Urinalysis with Reflex Culture and Microscopic In process Hospital Course 44-year-old female with a past medical history of hypertrophic obstructive cardiomyopathy, systoliccongestive heart failure s/p ICD placement, pericarditis, nicotine dependence, breast cancer at theage of 18 s/p lumpectomy and chemotherapy, ovarian cancer status post oophorectomy, endometrial cancer s/p ablation, DVT/PE in 2017 not on anticoagulation anymore, biliary duct obstruction s/p stent placement, anxiety, depression, peptic ulcer disease, GERD, leg abscess, migraine who presented to the emergency room for shortness of breath and concerns of worsening edema. Blood workup showed significantly elevated BNP, hypomagnesemia, and leukocytosis. CT scan of the chest showed mild interstitial pulmonary edema and a small right-sided pleural effusion. CT scan of the abdomen and pelvis showed vascular congestion of the liver. Patient was diuresed well with IV Lasix Cardiology following Optimizing GDMT including Aldactone, beta-blockers and Jardiance Improved medically and hemodynamically stable She complained of pain in right lower quadrant area and abdomen CT abdomen pelvis did not show any acute process but small area of consolidation in the left lower lobe raising suspicion for pneumonia, no URI or pulmonary symptoms other than dyspnea from heart failure episode No fever cough. Leukocytosis likely reactive with IV diuresis. Urinalysis was fine without evidenceof infection and no urinary symptoms present overall Order procalcitonin level, start doxycycline, unsure if started developing pneumonia but no currentsymptoms. She feels better breathing tyler today On room air. Cultures were sent out. Doxycycline for 5 days total empirically prescribed Pain improved in right lower quadrant area repeat CT abdomen pelvis did not show acute process. Shehas congestion of liver, unclear whether it is due to developing cardiac cirrhosis No acute events on telemetry Clinically progressing well, requesting to go home today. She was given pain control with Dilaudid IV and showed some improvement Advised to follow gastroenterology, possible IBS or musculoskeletal origin of pain Volume overload improving on IV diuresis Plan continue p.o. Lasix at home Repeat echo pending, and to follow cardiology in office as symptomatically improving I would keep the patient for 1 more day but she is adamant to go home today History of ICD placement and to follow cardiology Follow-up labs daily and check electrolytes Currently medically stable for DC home and follow closely with PCP and cardiology in office Also to follow gastroenterology Appetite okay but overall weight loss with chronic medical problems and conditions Encourage nutrition Pertinent Physical Exam At Time of Discharge Physical Exam General Appearance: AAO x 3, Skin: skin color pink, warm, and dry; no suspicious rashes or lesions Eyes : PERRL, EOM's intact ENT: mucous membranes pink and moist Neck: normocephalic Respiratory: lungs clear to auscultation anteriorly; no wheezing, rhonchi, or crackles. Heart: regular rate and rhythm. Abdomen: Nondistended, positive bowel sounds x4, soft, mild tender Extremities: no edema Peripheral pulses: normal x4 extremities Neuro: alert, coherent and conversant, no focal motor deficits Outpatient Follow-Up Future Appointments Date Time Provider Department Center 09/24/2024 2:40 PM Deepika Man, PharmD [id number] 11/21/2024 10:30 AM Radu Kay MD [id number] [place] Time to dc > 35 minutes Rishabh El MD documented in this [facility] Work Phone: [phone]) [phone] Plan of care note* Care Plan - Anisha Sheldon RN - 09/23/2024 5:20 AM EDT The clinical goals for the shift include pain control Over the shift, the patient made progress toward pain control with PRN pain medication. Rates lowest pain a 5/10. [facility]07-12-2025 Evaluation + Plan note* Assessment & Plan Note - Rishabh lE MD - 09/22/2024 2:18 PM EDTAssociated Problem(s): Acute exacerbation of chronic heart failure (Resolved 09/23/2024) 44-year-old female with a past medical history of hypertrophic obstructive cardiomyopathy, systoliccongestive heart failure s/p ICD placement, pericarditis, nicotine dependence, breast cancer at theage of 18 s/p lumpectomy and chemotherapy, ovarian cancer status post oophorectomy, endometrial cancer s/p ablation, DVT/PE in 2017 not on anticoagulation anymore, biliary duct obstruction s/p stent placement, anxiety, depression, peptic ulcer disease, GERD, leg abscess, migraine who presented to the emergency room for shortness of breath and concerns of worsening edema. Blood workup showed significantly elevated BNP, hypomagnesemia, and leukocytosis. CT scan of the chest showed mild interstitial pulmonary edema and a small right-sided pleural effusion. CT scan of the abdomen and pelvis showed vascular congestion of the liver. Trend liver enzymes, unclear if cardiac etiology involved Troponin leak from nonischemic myocardial injury Plan telemetry and vital signs monitoring. Follow clinically Follow cardiology, echocardiogram Continue with Lasix 40 mg IV twice a day and monitor his ins and outs closely. Repeat BMP tomorrow. Leukocytosis is most likely reactive. Repeat CBC tomorrow. C/w current home medications Pain control with Dilaudid IV, Magnesium supplement, hyoscyamine, Protonix, Carafate, alprazolam, Patient had sudden onset severe right flank pain, although CT abdomen pelvis did not show any kidney stones but to repeat CT abdomen pelvis due to excruciating sudden onset pain in abdomen. Check lactate as well. It could be spasm or irritable bowel. Hemodynamically stable no back pain Supportive care, education and counseling Symptomatic management SCDs for DVT prophylaxis with Lovenox Patient is full code [facility] Work Phone: 1(293) 387-804407-12-2025 Plan of care note* Care Plan - Kaela Trejo RN - 09/22/2024 1:36 PM EDT The patient's goals for the shift include The clinical goals for the shift include monitor intake and output Problem: Heart Failure Goal: Reduction in peripheral edema within 24 hours Outcome: Progressing Problem: Heart Failure Goal: Report improvement of dyspnea/breathlessness this shift Outcome: Progressing Problem: Heart Failure Goal: Improved urinary output this shift Outcome: Progressing [facility] Work Phone: [phone]) 186-279107-11-2025 manager control Note* Significant Event - Rishabh El MD - 09/21/2024 5:02 PM EDT Patient was seen and examined, admitted overnight. Reviewed chart and agree with assessment plan [facility] Work Phone: [phone]) [phone] Consult note* Jaxson Osorio MD - 09/21/2024 10:14 AM EDTAssociated Order(s): Inpatient consult to Cardiology Inpatient consult to Cardiology Consult performed by: Jaxson Osorio MD Consult ordered by: Boo Saeed MD Reason for consult: CHF History Of Present Illness: Mrs. Michelle Mitchell is a 44 y.o. current everyday smoker female being consulted by the Cardiology team for CHF. Patient with past medical history significant for hypertrophic obstructive cardiomyopathy, HF with recovered LVEF (LVEF 35% --> 55%), S/P ICD placement, prior pulmonary embolism, nicotine dependence, breast cancer at the age of 18 s/p lumpectomy and chemotherapy, ovarian cancer status post oophorectomy, endometrial cancer s/p ablation, DVT/PE in 2017 not on anticoagulation anymore, biliary duct obstruction s/p stent placement, anxiety, depression, peptic ulcer disease, GERD, leg abscess, migraine. She presented to ED [facility] on 09/21/2024 complaining of progressively worsening shortness of breath on exertion associated with weight gain and abdominal blunting, no leg edema (she usually has abdominal edema instead of leg edema per patient). She denied chest pain, lightheadedness, headaches, fever, chills, bleeding, orthopnea, paroxysmal nocturnal dyspnea or syncope.In the ED, blood pressure stable 121/78mmHg, heart rate 60bpm, afebrile, SpO2 97% on room air. Labsshowing magnesium 1.57, WBC 15,500. CT scan of the chest showed mild interstitial pulmonary edema and a small right-sided pleural effusion. CT scan of the abdomen and pelvis showed vascular congestion of the liver. Trop 48 - 49. BNP > 4,700. EKG showed normal sinus rhythm with incomplete RBBB and no signs of acute ischemic changes. She has been started on IV Lasix and has been admitted for clinical compensation. Last Recorded Vitals: Vitals: 09/21/24 0700 09/21/24 0800 09/21/24 0900 09/21/24 1000 BP: (!) 134/93 (!) 138/100 Pulse: 55 55 61 59 Resp: 14 13 18 11 Temp: 35.9 C (96.6 F) TempSrc: Temporal SpO2: 99% 97% 99% 96% Weight: 59.1 kg (130 lb 4.7 oz) Height: Last Labs: CBC - 09/21/2024: 12:05 AM 15.5 13.1 276 40.7 CMP - 09/21/2024: 12:05 AM 9.8 6.5 24 --- 1.0 _ 4.2 212 105 PTT - No results in last year. _ _ _ Troponin I, High Sensitivity Date/Time Value Ref Range Status 09/21/2024 01:11 AM 48 (H) 0 - 13 ng/L Final 09/21/2024 12:05 AM 49 (H) 0 - 13 ng/L Final BNP Date/Time Value Ref Range Status 09/21/2024 12:05 AM >4,700 (H) 0 - 99 pg/mL Final Hemoglobin A1C Date/Time Value Ref Range Status 07/25/2024 06:53 AM 5.5 4.3 - 5.6 % Final Comment: [place] [employer] guidelines indicate that patients with HgbA1c in the range 5.7-6.4% are at increased risk for development of diabetes, and intervention by lifestyle modification may be beneficial. HgbA1c greater or equal to 6.5% is considered diagnostic of diabetes. 04/25/2021 08:44 AM 5.2 4.3 - 5.6 % Final Comment: [place] [employer] guidelines indicate that patients with HgbA1c in the range 5.7-6.4% are at increased risk for development of diabetes, and intervention by lifestyle modification may be beneficial. HgbA1c greater or equal to 6.5% is considered diagnostic of diabetes. Last I/O: I/O last 3 completed shifts: In: - (0 mL/kg) Out: 1500 (25.4 mL/kg) [Urine:1500 (0.7 mL/kg/hr)] Weight: 59.1 kg Past Cardiology Tests (Last 3 Years): EKG: ECG 12 lead 08/23/2024 (Preliminary) Echo: No results found for this or any previous visit from the past 1095 days. Ejection Fractions: No results found for: EF Cath: No results found for this or any previous visit from the past 1095 days. Stress Test: No results found for this or any previous visit from the past 1095 days. Cardiac Imaging: No results found for this or any previous visit from the past 1095 days. Past Medical History: She has no past medical history on file. Past Surgical History: She has no past surgical history on file. Social History: She reports that she has been smoking cigarettes. She has never used smokeless tobacco. No history on file for alcohol use and drug use. Family History: Family History[1] Allergies: [place], Shellfish derived, Tigan [trimethobenzamide], Vicodin [hydrocodone- acetaminophen], Azithromycin, Levofloxacin, Morphine, Prozac [fluoxetine], Ultram [tramadol], and Codeine Inpatient Medications: Scheduled Medications[2] PRN Medications[3] Continuous Medications[4] Outpatient Medications: Current Outpatient Medications Medication Instructions albuterol (Ventolin HFA) 90 mcg/actuation inhaler 2 puffs, Every 6 hours PRN ALPRAZolam (XANAX) 0.5 mg, 2 times daily empagliflozin (JARDIANCE) 10 mg, oral, Daily furosemide (LASIX) 20 mg, Daily hyoscyamine (ANASPAZ, LEVSIN) 0.125 mg metoprolol succinate XL (TOPROL-XL) 25 mg, Daily pantoprazole (PROTONIX) 40 mg, Daily before breakfast psyllium (Metamucil) 3.4 gram packet 1 packet, Daily spironolactone (ALDACTONE) 25 mg, oral, Daily sucralfate (CARAFATE) 1 g, 2 times daily zolpidem (AMBIEN) 10 mg, Nightly PRN Physical Exam: General: alert, oriented and in no acute distress HEENT: NC/AT; EOMI; PERRLA, external ear is normal Neck: supple; trachea midline; no masses; no JVD Chest: diminished breath sounds bilaterally; crackles b/l Cardio: regular rhythm, S1S2 normal, systolic murmur 2+/6+ LLSB Abdomen: Soft, non-tender, non-distension, no organomegaly Extremities: no clubbing/cyanosis/edema Neuro: Grossly intact Psychiatric: Normal mood and affect Assessment/Plan Mrs. Michelle Mitchell is a 44 y.o. current everyday smoker female being consulted by the Cardiology team for CHF. Patient with past medical history significant for hypertrophic obstructive cardiomyopathy, HF with recovered LVEF (LVEF 35% --> 55%), S/P ICD placement, prior pulmonary embolism, nicotine dependence, breast cancer at the age of 18 s/p lumpectomy and chemotherapy, ovarian cancer status post oophorectomy, endometrial cancer s/p ablation, DVT/PE in 2017 not on anticoagulation anymore, biliary duct obstruction s/p stent placement, anxiety, depression, peptic ulcer disease, GERD, leg abscess, migraine. She presented to ED [facility] on 09/21/2024 complaining of progressively worsening shortness of breath on exertion associated with weight gain and abdominal blunting, no leg edema (she usually has abdominal edema instead of leg edema per patient). She denied chest pain, lightheadedness, headaches, fever, chills, bleeding, orthopnea, paroxysmal nocturnal dyspnea or syncope.In the ED, blood pressure stable 121/78mmHg, heart rate 60bpm, afebrile, SpO2 97% on room air. Labsshowing magnesium 1.57, WBC 15,500. CT scan of the chest showed mild interstitial pulmonary edema and a small right-sided pleural effusion. CT scan of the abdomen and pelvis showed vascular congestion of the liver. Trop 48 - 49. BNP > 4,700. EKG showed normal sinus rhythm with incomplete RBBB andno signs of acute ischemic changes. She has been started on IV Lasix and has been admitted for clinical compensation. Assessment # hypertrophic obstructive cardiomyopathy / Heart Failure AHA/ACC stage C with recovered LVEF 35% --> 55% / NYHA Classification III - BNP > 4,700 - Trop 48 - 49. - Patient looks warm and wet. - EKG showed normal sinus rhythm with incomplete RBBB and no signs of acute ischemic changes. - Echo (07/2024 - [facility]): - The left ventricle is normal in [...] the prior echocardiographic exam performed on 04/25/2021 ([facility]). Mobile echodensity reported today as above. MICKI may better assesss. - Keep daily weights. Patient's admission weight is 130 lb. - Low sodium diet (2g). - 1500mL fluid restriction. - Strict I&Os. - Electrolyte control and daily BMP including magnesium. - General recommendations for heart failure, including low-sodium diet, fluid restriction, daily weight and adherence to medication. - Patient continues to be volume overloaded based on clinical presentation. We suggest to keep diuresing. - Keep Furosemide 40mg IV daily. - Keep Metoprolol succinate 25mg daily. - Keep Spironolactone 25mg daily. - Keep empagliflozin 10mg daily. - Would suggest to repeat echocardiogram. - Please refer the patient to Cardiology Clinic upon discharge. # S/P ICD placement - Device interrogation. - Follow up with EP team. # Smoking - We had a thorough conversation with the patient (~3min) addressing the hazard risks for smoking, including but not limited to heart attack, stroke and cancer. This critically ill patient continues to be at-risk for clinically significant deterioration / failure due to the above mentioned dysfunctional, unstable organ systems. I have personally identified and managed all complex critical care issues to prevent aforementioned clinical deterioration. Critical care time is spent at bedside and/or the immediate area and has included, but is not limited to, the review of diagnostic tests, labs, radiographs, serial assessments of hemodynamics, respiratory status, ventilatory management, and family updates. Time spent in procedures and teaching are reported separately. Critical care time: 38 minutes Peripheral IV 09/21/24 20 G Left Forearm (Active) Site Assessment Clean;Dry;Intact 09/21/24717 Dressing Type Transparent 09/21/24717 Line Status Saline locked 09/21/24717 Dressing Status Clean;Dry 09/21/24717 Number of days: 0 Code Status: Full Code Jaxson Osorio MD Cardiology [1] No family history on file. [2] Scheduled medications Medication Dose Route Frequency empagliflozin 10 mg oral Daily furosemide 40 mg intravenous q12h magnesium oxide 400 mg of magnesium oxide oral Daily pantoprazole 40 mg oral Daily before breakfast sucralfate 1 g oral BID [3] PRN medications Medication acetaminophen Or acetaminophen Or acetaminophen HYDROmorphone magnesium hydroxide ondansetron ODT Or ondansetron zolpidem [4] Continuous Medications Medication Dose Last Rate [facility] Work Phone: 1(455) 409-939207-11-2025 Consult note* Jaxson Osorio MD - 09/21/2024 10:14 AM EDTAssociated Order(s): Inpatient consult to Cardiology Inpatient consult to Cardiology Consult performed by: Jaxson Osorio MD Consult ordered by: Boo Saeed MD Reason for consult: CHF History Of Present Illness: Mrs. Michelle Mitchell is a 44 y.o. current everyday smoker female being consulted by the Cardiology team for CHF. Patient with past medical history significant for hypertrophic obstructive cardiomyopathy, HF with recovered LVEF (LVEF 35% --> 55%), S/P ICD placement, prior pulmonary embolism, nicotine dependence, breast cancer at the age of 18 s/p lumpectomy and chemotherapy, ovarian cancer status post oophorectomy, endometrial cancer s/p ablation, DVT/PE in 2017 not on anticoagulation anymore, biliary duct obstruction s/p stent placement, anxiety, depression, peptic ulcer disease, GERD, leg abscess, migraine. She presented to ED [facility] on 09/21/2024 complaining of progressively worsening shortness of breath on exertion associated with weight gain and abdominal blunting, no leg edema (she usually has abdominal edema instead of leg edema per patient). She denied chest pain, lightheadedness, headaches, fever, chills, bleeding, orthopnea, paroxysmal nocturnal dyspnea or syncope.In the ED, blood pressure stable 121/78mmHg, heart rate 60bpm, afebrile, SpO2 97% on room air. Labsshowing magnesium 1.57, WBC 15,500. CT scan of the chest showed mild interstitial pulmonary edema and a small right-sided pleural effusion. CT scan of the abdomen and pelvis showed vascular congestion of the liver. Trop 48 - 49. BNP > 4,700. EKG showed normal sinus rhythm with incomplete RBBB and no signs of acute ischemic changes. She has been started on IV Lasix and has been admitted for clinical compensation. Last Recorded Vitals: Vitals: 09/21/24 0700 09/21/24 0800 09/21/24 0900 09/21/24 1000 BP: (!) 134/93 (!) 138/100 Pulse: 55 55 61 59 Resp: 14 13 18 11 Temp: 35.9 C (96.6 F) TempSrc: Temporal SpO2: 99% 97% 99% 96% Weight: 59.1 kg (130 lb 4.7 oz) Height: Last Labs: CBC - 09/21/2024: 12:05 AM 15.5 13.1 276 40.7 CMP - 09/21/2024: 12:05 AM 9.8 6.5 24 --- 1.0 _ 4.2 212 105 PTT - No results in last year. _ _ _ Troponin I, High Sensitivity Date/Time Value Ref Range Status 09/21/2024 01:11 AM 48 (H) 0 - 13 ng/L Final 09/21/2024 12:05 AM 49 (H) 0 - 13 ng/L Final BNP Date/Time Value Ref Range Status 09/21/2024 12:05 AM >4,700 (H) 0 - 99 pg/mL Final Hemoglobin A1C Date/Time Value Ref Range Status 07/25/2024 06:53 AM 5.5 4.3 - 5.6 % Final Comment: [place] [employer] guidelines indicate that patients with HgbA1c in the range 5.7-6.4% are at increased risk for development of diabetes, and intervention by lifestyle modification may be beneficial. HgbA1c greater or equal to 6.5% is considered diagnostic of diabetes. 04/25/2021 08:44 AM 5.2 4.3 - 5.6 % Final Comment: [place] [employer] guidelines indicate that patients with HgbA1c in the range 5.7-6.4% are at increased risk for development of diabetes, and intervention by lifestyle modification may be beneficial. HgbA1c greater or equal to 6.5% is considered diagnostic of diabetes. Last I/O: I/O last 3 completed shifts: In: - (0 mL/kg) Out: 1500 (25.4 mL/kg) [Urine:1500 (0.7 mL/kg/hr)] Weight: 59.1 kg Past Cardiology Tests (Last 3 Years): EKG: ECG 12 lead 08/23/2024 (Preliminary) Echo: No results found for this or any previous visit from the past 1095 days. Ejection Fractions: No results found for: EF Cath: No results found for this or any previous visit from the past 1095 days. Stress Test: No results found for this or any previous visit from the past 1095 days. Cardiac Imaging: No results found for this or any previous visit from the past 1095 days. Past Medical History: She has no past medical history on file. Past Surgical History: She has no past surgical history on file. Social History: She reports that she has been smoking cigarettes. She has never used smokeless tobacco. No history on file for alcohol use and drug use. Family History: Family History[1] Allergies: [place], Shellfish derived, Tigan [trimethobenzamide], Vicodin [hydrocodone- acetaminophen], Azithromycin, Levofloxacin, Morphine, Prozac [fluoxetine], Ultram [tramadol], and Codeine Inpatient Medications: Scheduled Medications[2] PRN Medications[3] Continuous Medications[4] Outpatient Medications: Current Outpatient Medications Medication Instructions albuterol (Ventolin HFA) 90 mcg/actuation inhaler 2 puffs, Every 6 hours PRN ALPRAZolam (XANAX) 0.5 mg, 2 times daily empagliflozin (JARDIANCE) 10 mg, oral, Daily furosemide (LASIX) 20 mg, Daily hyoscyamine (ANASPAZ, LEVSIN) 0.125 mg metoprolol succinate XL (TOPROL-XL) 25 mg, Daily pantoprazole (PROTONIX) 40 mg, Daily before breakfast psyllium (Metamucil) 3.4 gram packet 1 packet, Daily spironolactone (ALDACTONE) 25 mg, oral, Daily sucralfate (CARAFATE) 1 g, 2 times daily zolpidem (AMBIEN) 10 mg, Nightly PRN Physical Exam: General: alert, oriented and in no acute distress HEENT: NC/AT; EOMI; PERRLA, external ear is normal Neck: supple; trachea midline; no masses; no JVD Chest: diminished breath sounds bilaterally; crackles b/l Cardio: regular rhythm, S1S2 normal, systolic murmur 2+/6+ LLSB Abdomen: Soft, non-tender, non-distension, no organomegaly Extremities: no clubbing/cyanosis/edema Neuro: Grossly intact Psychiatric: Normal mood and affect Assessment/Plan Mrs. Michelle Mitchell is a 44 y.o. current everyday smoker female being consulted by the Cardiology team for CHF. Patient with past medical history significant for hypertrophic obstructive cardiomyopathy, HF with recovered LVEF (LVEF 35% --> 55%), S/P ICD placement, prior pulmonary embolism, nicotine dependence, breast cancer at the age of 18 s/p lumpectomy and chemotherapy, ovarian cancer status post oophorectomy, endometrial cancer s/p ablation, DVT/PE in 2017 not on anticoagulation anymore, biliary duct obstruction s/p stent placement, anxiety, depression, peptic ulcer disease, GERD, leg abscess, migraine. She presented to ED [facility] on 09/21/2024 complaining of progressively worsening shortness of breath on exertion associated with weight gain and abdominal blunting, no leg edema (she usually has abdominal edema instead of leg edema per patient). She denied chest pain, lightheadedness, headaches, fever, chills, bleeding, orthopnea, paroxysmal nocturnal dyspnea or syncope.In the ED, blood pressure stable 121/78mmHg, heart rate 60bpm, afebrile, SpO2 97% on room air. Labsshowing magnesium 1.57, WBC 15,500. CT scan of the chest showed mild interstitial pulmonary edema and a small right-sided pleural effusion. CT scan of the abdomen and pelvis showed vascular congestion of the liver. Trop 48 - 49. BNP > 4,700. EKG showed normal sinus rhythm with incomplete RBBB andno signs of acute ischemic changes. She has been started on IV Lasix and has been admitted for clinical compensation. Assessment # hypertrophic obstructive cardiomyopathy / Heart Failure AHA/ACC stage C with recovered LVEF 35% --> 55% / NYHA Classification III - BNP > 4,700 - Trop 48 - 49. - Patient looks warm and wet. - EKG showed normal sinus rhythm with incomplete RBBB and no signs of acute ischemic changes. - Echo (07/2024 - [facility]): - The left ventricle is normal in [...] the prior echocardiographic exam performed on 04/25/2021 ([facility]). Mobile echodensity reported today as above. MICKI may better assesss. - Keep daily weights. Patient's admission weight is 130 lb. - Low sodium diet (2g). - 1500mL fluid restriction. - Strict I&Os. - Electrolyte control and daily BMP including magnesium. - General recommendations for heart failure, including low-sodium diet, fluid restriction, daily weight and adherence to medication. - Patient continues to be volume overloaded based on clinical presentation. We suggest to keep diuresing. - Keep Furosemide 40mg IV daily. - Keep Metoprolol succinate 25mg daily. - Keep Spironolactone 25mg daily. - Keep empagliflozin 10mg daily. - Would suggest to repeat echocardiogram. - Please refer the patient to Cardiology Clinic upon discharge. # S/P ICD placement - Device interrogation. - Follow up with EP team. # Smoking - We had a thorough conversation with the patient (~3min) addressing the hazard risks for smoking, including but not limited to heart attack, stroke and cancer. This critically ill patient continues to be at-risk for clinically significant deterioration / failure due to the above mentioned dysfunctional, unstable organ systems. I have personally identified and managed all complex critical care issues to prevent aforementioned clinical deterioration. Critical care time is spent at bedside and/or the immediate area and has included, but is not limited to, the review of diagnostic tests, labs, radiographs, serial assessments of hemodynamics, respiratory status, ventilatory management, and family updates. Time spent in procedures and teaching are reported separately. Critical care time: 38 minutes Peripheral IV 09/21/24 20 G Left Forearm (Active) Site Assessment Clean;Dry;Intact 09/21/24717 Dressing Type Transparent 09/21/24717 Line Status Saline locked 09/21/24717 Dressing Status Clean;Dry 09/21/24717 Number of days: 0 Code Status: Full Code Jaxson Osorio MD Cardiology [1] No family history on file. [2] Scheduled medications Medication Dose Route Frequency empagliflozin 10 mg oral Daily furosemide 40 mg intravenous q12h magnesium oxide 400 mg of magnesium oxide oral Daily pantoprazole 40 mg oral Daily before breakfast sucralfate 1 g oral BID [3] PRN medications Medication acetaminophen Or acetaminophen Or acetaminophen HYDROmorphone magnesium hydroxide ondansetron ODT Or ondansetron zolpidem [4] Continuous Medications Medication Dose Last Rate documented in this [facility] Work Phone: 1(232) 937-533607-11-2025 Plan of care note* Care Plan - Alexa Brown RN - 09/21/2024 7:48 AM EDT The clinical goals for the shift include no SOB, response to lasix Problem: Heart Failure Goal: Improved gas exchange this shift Outcome: Progressing Problem: Heart Failure Goal: Weight from fluid excess reduced over 2-3 days, then stabilize Outcome: Progressing Problem: Heart Failure Goal: Report improvement of dyspnea/breathlessness this shift Outcome: Progressing T [facility]07-11-2025 Plan of care note* Care Plan - Kassidy Estrada RN - 09/21/2024 6:09 AM EDT The patient's goals for the shift include The clinical goals for the shift include manage chest pain, no shortness of breath Problem: Heart Failure Goal: Improved gas exchange this shift Outcome: Progressing Goal: Improved urinary output this shift Outcome: Progressing Goal: Reduction in peripheral edema within 24 hours Outcome: Progressing Goal: Report improvement of dyspnea/breathlessness this shift Outcome: Progressing Goal: Weight from fluid excess reduced over 2-3 days, then stabilize Outcome: Progressing Goal: Increase self care and/or family involvement in 24 hours Outcome: Progressing Problem: Pain - Adult Goal: Verbalizes/displays adequate comfort level or baseline comfort level Outcome: Progressing Problem: Safety - Adult Goal: Free from fall injury Outcome: Progressing Problem: Discharge Planning Goal: Discharge to home or other facility with appropriate resources Outcome: Progressing Problem: Chronic Conditions and Co-morbidities Goal: Patient's chronic conditions and co-morbidity symptoms are monitored and maintained or improved Outcome: Progressing Problem: Nutrition Goal: Nutrient intake appropriate for maintaining nutritional needs Outcome: Progressing [facility] Work Phone: [phone]) 767-491607-11-2025 Evaluation + Plan note* Assessment & Plan Note - Boo Saeed MD - 09/21/2024 5:59 AM EDTAssociated Problem(s): Acute exacerbation of chronic heart failure (Resolved 09/23/2024) 44-year-old female with a past medical history of hypertrophic obstructive cardiomyopathy, systoliccongestive heart failure s/p ICD placement, pericarditis, nicotine dependence, breast cancer at theage of 18 s/p lumpectomy and chemotherapy, ovarian cancer status post oophorectomy, endometrial cancer s/p ablation, DVT/PE in 2017 not on anticoagulation anymore, biliary duct obstruction s/p stent placement, anxiety, depression, peptic ulcer disease, GERD, leg abscess, migraine who presented to the emergency room for shortness of breath and concerns of worsening edema. Blood workup showed significantly elevated BNP, hypomagnesemia, and leukocytosis. CT scan of the chest showed mild interstitial pulmonary edema and a small right-sided pleural effusion. CT scan of the abdomen and pelvis showed vascular congestion of the liver. I will admit the patient to the inpatient medical service with telemetry and vital signs monitoring. Consult cardiology Continue with Lasix 40 mg IV twice a day and monitor his ins and outs closely. Repeat BMP tomorrow. Leukocytosis is most likely reactive. Repeat CBC tomorrow. Resume home medications SCDs for DVT prophylaxis Patient is full code [facility] Work Phone: [phone] 544-248607-11-2025 History and physical note* Boo Saeed MD - 09/21/2024 5:29 AM EDT History Of Present Illness Michelle Mitchell is a 44 y.o. female Who presented to the emergency room for shortness of breath and concerns of weight gain secondary to edema. On presentation, blood pressure 121/78, heart rate 60, respiratory rate 22, afebrile, saturation oxygen 97% on room air. Pertinent findings on blood workup; BNP greater than 4700, magnesium 1.57, troponin 49 with repeat of 48, ALT 212, WBC 15,500, and the rest is grossly within normal limits. CT scan of the chest showed mild interstitial pulmonary edema and a small right-sided pleural effusion. CT scan of the abdomen and pelvis showed vascular congestion of the liver. Patient was given in the emergency room 40 mg of IV Lasix, Dilaudid, Zofran, andthen admitted to the medical service for further investigation and management. Upon encounter now, patient reports feeling better. She said that she started experiencing the shortness of breath over the past several days along with worsening distention of her abdominal girth. She does not get any leg edema. No chest pain or palpitations. No cough. She said that usually when she starts having fluid overload again it, it is mainly in her abdomen. ROS 10 systems were reviewed and were negative except for those noted in the history of present illness. Past Medical History Medical History[1] Pertinent medical history also documented in my below narrative Surgical History Surgical History[2] Pertinent surgical history also documented in my below narrative Social History She reports that she has been smoking cigarettes. She has never used smokeless tobacco. No history on file for alcohol use and drug use. Family History Family History[3] Medications Current Outpatient Medications Medication Instructions albuterol (Ventolin HFA) 90 mcg/actuation inhaler 2 puffs, Every 6 hours PRN ALPRAZolam (XANAX) 0.5 mg, 2 times daily dicyclomine (BENTYL) 10 mg, 3 times daily empagliflozin (JARDIANCE) 10 mg, oral, Daily furosemide (LASIX) 20 mg, Daily meloxicam (MOBIC) 15 mg, Daily PRN metoprolol succinate XL (TOPROL-XL) 25 mg, Daily pantoprazole (PROTONIX) 40 mg, Daily before breakfast psyllium (Metamucil) 3.4 gram packet 1 packet, Daily spironolactone (ALDACTONE) 25 mg, oral, Daily sucralfate (CARAFATE) 1 g, 2 times daily vortioxetine (TRINTELLIX) 10 mg, Daily zolpidem (AMBIEN) 10 mg, Nightly PRN Allergies [place], Shellfish derived, Tigan [trimethobenzamide], Vicodin [hydrocodone- acetaminophen], Azithromycin, Morphine, Prozac [fluoxetine], Ultram [tramadol], and Codeine Last Recorded Vitals Blood pressure (!) 137/95, pulse 57, temperature 36.8 C (98.2 F), temperature source Temporal, resp. rate 18, height 1.626 m (5' 4), weight 59.1 kg (130 lb 4.7 oz), SpO2 98%. Physical Exam Constitutional: General: She is not in acute distress. Appearance: She is ill-appearing. Comments: Awake alert and oriented x3 HENT: Mouth/Throat: Pharynx: Oropharynx is clear. Eyes: Pupils: Pupils are equal, round, and reactive to light. Cardiovascular: Rate and Rhythm: Normal rate and regular rhythm. Heart sounds: Normal heart sounds. Pulmonary: Effort: No respiratory distress. Breath sounds: Normal breath sounds. No wheezing or rhonchi. Abdominal: General: Abdomen is flat. Bowel sounds are normal. There is distension. Palpations: Abdomen is soft. Tenderness: There is no abdominal tenderness. Musculoskeletal: General: No swelling. Skin: General: Skin is warm. Neurological: General: No focal deficit present. Psychiatric: Mood and Affect: Mood normal. Behavior: Behavior normal. Thought Content: Thought content normal. Judgment: Judgment normal. Relevant Results Results for orders placed or performed during the hospital encounter of 09/20/24 (from the past 24 hours) CBC and Auto Differential Result Value Ref Range WBC 15.5 (H) 4.4 - 11.3 x10*3/uL nRBC 0.0 0.0 - 0.0 /100 WBCs RBC 4.32 4.00 - 5.20 x10*6/uL Hemoglobin 13.1 12.0 - 16.0 g/dL Hematocrit 40.7 36.0 - 46.0 % MCV 94 80 - 100 fL MCH 30.3 26.0 - 34.0 pg MCHC 32.2 32.0 - 36.0 g/dL RDW 14.9 (H) 11.5 - 14.5 % Platelets 276 150 - 450 x10*3/uL Neutrophils % 92.6 40.0 - 80.0 % Immature Granulocytes %, Automated 0.6 0.0 - 0.9 % Lymphocytes % 4.2 13.0 - 44.0 % Monocytes % 2.4 2.0 - 10.0 % Eosinophils % 0.1 0.0 - 6.0 % Basophils % 0.1 0.0 - 2.0 % Neutrophils Absolute 14.39 (H) 1.20 - 7.70 x10*3/uL Immature Granulocytes Absolute, Automated 0.09 0.00 - 0.70 x10*3/uL Lymphocytes Absolute 0.65 (L) 1.20 - 4.80 x10*3/uL Monocytes Absolute 0.37 0.10 - 1.00 x10*3/uL Eosinophils Absolute 0.01 0.00 - 0.70 x10*3/uL Basophils Absolute 0.01 0.00 - 0.10 x10*3/uL Comprehensive metabolic panel Result Value Ref Range Glucose 144 (H) 74 - 99 mg/dL Sodium 136 136 - 145 mmol/L Potassium 4.1 3.5 - 5.3 mmol/L Chloride 106 98 - 107 mmol/L Bicarbonate 21 21 - 32 mmol/L Anion Gap 13 10 - 20 mmol/L Urea Nitrogen 21 6 - 23 mg/dL Creatinine 0.82 0.50 - 1.05 mg/dL eGFR 90 >60 mL/min/1.73m*2 Calcium 9.8 8.6 - 10.3 mg/dL Albumin 4.2 3.4 - 5.0 g/dL Alkaline Phosphatase 105 33 - 110 U/L Total Protein 6.5 6.4 - 8.2 g/dL AST 24 9 - 39 U/L Bilirubin, Total 1.0 0.0 - 1.2 mg/dL ALT 212 (H) 7 - 45 U/L Lipase Result Value Ref Range Lipase 51 9 - 82 U/L Magnesium Result Value Ref Range Magnesium 1.57 (L) 1.60 - 2.40 mg/dL B-Type Natriuretic Peptide Result Value Ref Range BNP >4,700 (H) 0 - 99 pg/mL Troponin I, High Sensitivity, Initial Result Value Ref Range Troponin I, High Sensitivity 49 (H) 0 - 13 ng/L Urinalysis with Reflex Culture and Microscopic Result Value Ref Range Color, Urine Light-Yellow Light-Yellow, Yellow, Dark-Yellow Appearance, Urine Clear Clear Specific [place], Urine 1.023 1.005 - 1.035 pH, Urine 6.5 5.0, 5.5, 6.0, 6.5, 7.0, 7.5, 8.0 Protein, Urine 30 (1+) (A) NEGATIVE, 10 (TRACE), 20 (TRACE) mg/dL Glucose, Urine Normal Normal mg/dL Blood, Urine NEGATIVE NEGATIVE mg/dL Ketones, Urine NEGATIVE NEGATIVE mg/dL Bilirubin, Urine NEGATIVE NEGATIVE mg/dL Urobilinogen, Urine Normal Normal mg/dL Nitrite, Urine NEGATIVE NEGATIVE Leukocyte Esterase, Urine NEGATIVE NEGATIVE Urinalysis Microscopic Result Value Ref Range WBC, Urine 1-5 1-5, NONE /HPF RBC, Urine 6-10 (A) NONE, 1-2, 3-5 /HPF Squamous Epithelial Cells, Urine 1-9 (SPARSE) Reference range not established. /HPF Mucus, Urine FEW Reference range not established. /LPF Troponin, High Sensitivity, 1 Hour Result Value Ref Range Troponin I, High Sensitivity 48 (H) 0 - 13 ng/L Imaging CT abdomen pelvis w IV contrast Result Date: 09/21/2024 1. Constellation of the imaging findings suggestive of hypovolemia/fluid overload, including borderline enlarged, heterogeneously attenuating liver suggestive of underlying vascular congestion, although component of fatty infiltration not excluded. Small to moderate volume of fluid is present in the abdomen and pelvis. 2. Mild circumferential bladder wall thickening may be due to incomplete distention, although correlation with urinalysis to exclude any underlying cystitis is recommended. 3. Metallic stents are visualized in the common bile duct and in the proximal pancreatic duct, and terminate in the duodenum. There is trace intrahepatic and extrahepatic pneumobilia without evidence of biliary dilatation. 4. Additional findings as described above. MACRO: None. Signed by: Deondre Davila 09/21/2024 1:44 AM Dictation workstation: [id number] CT angio chest for pulmonary embolism Result Date: 09/21/2024 1. No evidence of the large central pulmonary embolism through the segmental level. Of the aerationof the smaller vessels is degraded by beam hardening artifact from the contrast bolus in the left subclavian vein and contrast bolus from the right subclavian approach pacemaker. 2. Small right-sidedpleural effusion with mild interstitial and pulmonary edema are present in the lungs bilaterally. Some fluid is present along the fissures in the lower lobes, [id number]. 3. Mild cardiomegaly with some reflux of contrast into the hepatic veins and IVC, findings that may be seen in the setting of early right heart strain. Correlate with echocardiogram. MACRO: None Signed by: Deondre Davila 09/21/2024 1:38 AM Dictation workstation: [id number] Cardiology, Vascular, and Other Imaging No other imaging results found for the past 2 days Assessment & Plan Acute exacerbation of chronic heart failure 44-year-old female with a past medical history of hypertrophic obstructive cardiomyopathy, systoliccongestive heart failure s/p ICD placement, pericarditis, nicotine dependence, breast cancer at theage of 18 s/p lumpectomy and chemotherapy, ovarian cancer status post oophorectomy, endometrial cancer s/p ablation, DVT/PE in 2017 not on anticoagulation anymore, biliary duct obstruction s/p stent placement, anxiety, depression, peptic ulcer disease, GERD, leg abscess, migraine who presented to the emergency room for shortness of breath and concerns of worsening edema. Blood workup showed significantly elevated BNP, hypomagnesemia, and leukocytosis. CT scan of the chest showed mild interstitial pulmonary edema and a small right-sided pleural effusion. CT scan of the abdomen and pelvis showed vascular congestion of the liver. I will admit the patient to the inpatient medical service with telemetry and vital signs monitoring. Consult cardiology Continue with Lasix 40 mg IV twice a day and monitor his ins and outs closely. Repeat BMP tomorrow. Leukocytosis is most likely reactive. Repeat CBC tomorrow. Resume home medications SCDs for DVT prophylaxis Patient is full code (This note was generated with voice recognition software and may contain errors including spelling,grammar, syntax and misrecognition of what was dictated, that are not fully corrected) Boo Saeed MD [1] No past medical history on file. [2] No past surgical history on file. [3] No family history on file. [facility] Work Phone: [phone]) [phone] History and physical note* Boo Saeed MD - 09/21/2024 5:29 AM EDT History Of Present Illness Michelle Mitchell is a 44 y.o. female Who presented to the emergency room for shortness of breath and concerns of weight gain secondary to edema. On presentation, blood pressure 121/78, heart rate 60, respiratory rate 22, afebrile, saturation oxygen 97% on room air. Pertinent findings on blood workup; BNP greater than 4700, magnesium 1.57, troponin 49 with repeat of 48, ALT 212, WBC 15,500, and the rest is grossly within normal limits. CT scan of the chest showed mild interstitial pulmonary edema and a small right-sided pleural effusion. CT scan of the abdomen and pelvis showed vascular congestion of the liver. Patient was given in the emergency room 40 mg of IV Lasix, Dilaudid, Zofran, andthen admitted to the medical service for further investigation and management. Upon encounter now, patient reports feeling better. She said that she started experiencing the shortness of breath over the past several days along with worsening distention of her abdominal girth. She does not get any leg edema. No chest pain or palpitations. No cough. She said that usually when she starts having fluid overload again it, it is mainly in her abdomen. ROS 10 systems were reviewed and were negative except for those noted in the history of present illness. Past Medical History Medical History[1] Pertinent medical history also documented in my below narrative Surgical History Surgical History[2] Pertinent surgical history also documented in my below narrative Social History She reports that she has been smoking cigarettes. She has never used smokeless tobacco. No history on file for alcohol use and drug use. Family History Family History[3] Medications Current Outpatient Medications Medication Instructions albuterol (Ventolin HFA) 90 mcg/actuation inhaler 2 puffs, Every 6 hours PRN ALPRAZolam (XANAX) 0.5 mg, 2 times daily dicyclomine (BENTYL) 10 mg, 3 times daily empagliflozin (JARDIANCE) 10 mg, oral, Daily furosemide (LASIX) 20 mg, Daily meloxicam (MOBIC) 15 mg, Daily PRN metoprolol succinate XL (TOPROL-XL) 25 mg, Daily pantoprazole (PROTONIX) 40 mg, Daily before breakfast psyllium (Metamucil) 3.4 gram packet 1 packet, Daily spironolactone (ALDACTONE) 25 mg, oral, Daily sucralfate (CARAFATE) 1 g, 2 times daily vortioxetine (TRINTELLIX) 10 mg, Daily zolpidem (AMBIEN) 10 mg, Nightly PRN Allergies [place], Shellfish derived, Tigan [trimethobenzamide], Vicodin [hydrocodone- acetaminophen], Azithromycin, Morphine, Prozac [fluoxetine], Ultram [tramadol], and Codeine Last Recorded Vitals Blood pressure (!) 137/95, pulse 57, temperature 36.8 C (98.2 F), temperature source Temporal, resp. rate 18, height 1.626 m (5' 4), weight 59.1 kg (130 lb 4.7 oz), SpO2 98%. Physical Exam Constitutional: General: She is not in acute distress. Appearance: She is ill-appearing. Comments: Awake alert and oriented x3 HENT: Mouth/Throat: Pharynx: Oropharynx is clear. Eyes: Pupils: Pupils are equal, round, and reactive to light. Cardiovascular: Rate and Rhythm: Normal rate and regular rhythm. Heart sounds: Normal heart sounds. Pulmonary: Effort: No respiratory distress. Breath sounds: Normal breath sounds. No wheezing or rhonchi. Abdominal: General: Abdomen is flat. Bowel sounds are normal. There is distension. Palpations: Abdomen is soft. Tenderness: There is no abdominal tenderness. Musculoskeletal: General: No swelling. Skin: General: Skin is warm. Neurological: General: No focal deficit present. Psychiatric: Mood and Affect: Mood normal. Behavior: Behavior normal. Thought Content: Thought content normal. Judgment: Judgment normal. Relevant Results Results for orders placed or performed during the hospital encounter of 09/20/24 (from the past 24 hours) CBC and Auto Differential Result Value Ref Range WBC 15.5 (H) 4.4 - 11.3 x10*3/uL nRBC 0.0 0.0 - 0.0 /100 WBCs RBC 4.32 4.00 - 5.20 x10*6/uL Hemoglobin 13.1 12.0 - 16.0 g/dL Hematocrit 40.7 36.0 - 46.0 % MCV 94 80 - 100 fL MCH 30.3 26.0 - 34.0 pg MCHC 32.2 32.0 - 36.0 g/dL RDW 14.9 (H) 11.5 - 14.5 % Platelets 276 150 - 450 x10*3/uL Neutrophils % 92.6 40.0 - 80.0 % Immature Granulocytes %, Automated 0.6 0.0 - 0.9 % Lymphocytes % 4.2 13.0 - 44.0 % Monocytes % 2.4 2.0 - 10.0 % Eosinophils % 0.1 0.0 - 6.0 % Basophils % 0.1 0.0 - 2.0 % Neutrophils Absolute 14.39 (H) 1.20 - 7.70 x10*3/uL Immature Granulocytes Absolute, Automated 0.09 0.00 - 0.70 x10*3/uL Lymphocytes Absolute 0.65 (L) 1.20 - 4.80 x10*3/uL Monocytes Absolute 0.37 0.10 - 1.00 x10*3/uL Eosinophils Absolute 0.01 0.00 - 0.70 x10*3/uL Basophils Absolute 0.01 0.00 - 0.10 x10*3/uL Comprehensive metabolic panel Result Value Ref Range Glucose 144 (H) 74 - 99 mg/dL Sodium 136 136 - 145 mmol/L Potassium 4.1 3.5 - 5.3 mmol/L Chloride 106 98 - 107 mmol/L Bicarbonate 21 21 - 32 mmol/L Anion Gap 13 10 - 20 mmol/L Urea Nitrogen 21 6 - 23 mg/dL Creatinine 0.82 0.50 - 1.05 mg/dL eGFR 90 >60 mL/min/1.73m*2 Calcium 9.8 8.6 - 10.3 mg/dL Albumin 4.2 3.4 - 5.0 g/dL Alkaline Phosphatase 105 33 - 110 U/L Total Protein 6.5 6.4 - 8.2 g/dL AST 24 9 - 39 U/L Bilirubin, Total 1.0 0.0 - 1.2 mg/dL ALT 212 (H) 7 - 45 U/L Lipase Result Value Ref Range Lipase 51 9 - 82 U/L Magnesium Result Value Ref Range Magnesium 1.57 (L) 1.60 - 2.40 mg/dL B-Type Natriuretic Peptide Result Value Ref Range BNP >4,700 (H) 0 - 99 pg/mL Troponin I, High Sensitivity, Initial Result Value Ref Range Troponin I, High Sensitivity 49 (H) 0 - 13 ng/L Urinalysis with Reflex Culture and Microscopic Result Value Ref Range Color, Urine Light-Yellow Light-Yellow, Yellow, Dark-Yellow Appearance, Urine Clear Clear Specific [place], Urine 1.023 1.005 - 1.035 pH, Urine 6.5 5.0, 5.5, 6.0, 6.5, 7.0, 7.5, 8.0 Protein, Urine 30 (1+) (A) NEGATIVE, 10 (TRACE), 20 (TRACE) mg/dL Glucose, Urine Normal Normal mg/dL Blood, Urine NEGATIVE NEGATIVE mg/dL Ketones, Urine NEGATIVE NEGATIVE mg/dL Bilirubin, Urine NEGATIVE NEGATIVE mg/dL Urobilinogen, Urine Normal Normal mg/dL Nitrite, Urine NEGATIVE NEGATIVE Leukocyte Esterase, Urine NEGATIVE NEGATIVE Urinalysis Microscopic Result Value Ref Range WBC, Urine 1-5 1-5, NONE /HPF RBC, Urine 6-10 (A) NONE, 1-2, 3-5 /HPF Squamous Epithelial Cells, Urine 1-9 (SPARSE) Reference range not established. /HPF Mucus, Urine FEW Reference range not established. /LPF Troponin, High Sensitivity, 1 Hour Result Value Ref Range Troponin I, High Sensitivity 48 (H) 0 - 13 ng/L Imaging CT abdomen pelvis w IV contrast Result Date: 09/21/2024 1. Constellation of the imaging findings suggestive of hypovolemia/fluid overload, including borderline enlarged, heterogeneously attenuating liver suggestive of underlying vascular congestion, although component of fatty infiltration not excluded. Small to moderate volume of fluid is present in the abdomen and pelvis. 2. Mild circumferential bladder wall thickening may be due to incomplete distention, although correlation with urinalysis to exclude any underlying cystitis is recommended. 3. Metallic stents are visualized in the common bile duct and in the proximal pancreatic duct, and terminate in the duodenum. There is trace intrahepatic and extrahepatic pneumobilia without evidence of biliary dilatation. 4. Additional findings as described above. MACRO: None. Signed by: Deondre Davila 09/21/2024 1:44 AM Dictation workstation: [id number] CT angio chest for pulmonary embolism Result Date: 09/21/2024 1. No evidence of the large central pulmonary embolism through the segmental level. Of the aerationof the smaller vessels is degraded by beam hardening artifact from the contrast bolus in the left subclavian vein and contrast bolus from the right subclavian approach pacemaker. 2. Small right-sidedpleural effusion with mild interstitial and pulmonary edema are present in the lungs bilaterally. Some fluid is present along the fissures in the lower lobes, [id number]. 3. Mild cardiomegaly with some reflux of contrast into the hepatic veins and IVC, findings that may be seen in the setting of early right heart strain. Correlate with echocardiogram. MACRO: None Signed by: Deondre Davila 09/21/2024 1:38 AM Dictation workstation: [id number] Cardiology, Vascular, and Other Imaging No other imaging results found for the past 2 days Assessment & Plan Acute exacerbation of chronic heart failure 44-year-old female with a past medical history of hypertrophic obstructive cardiomyopathy, systoliccongestive heart failure s/p ICD placement, pericarditis, nicotine dependence, breast cancer at theage of 18 s/p lumpectomy and chemotherapy, ovarian cancer status post oophorectomy, endometrial cancer s/p ablation, DVT/PE in 2017 not on anticoagulation anymore, biliary duct obstruction s/p stent placement, anxiety, depression, peptic ulcer disease, GERD, leg abscess, migraine who presented to the emergency room for shortness of breath and concerns of worsening edema. Blood workup showed significantly elevated BNP, hypomagnesemia, and leukocytosis. CT scan of the chest showed mild interstitial pulmonary edema and a small right-sided pleural effusion. CT scan of the abdomen and pelvis showed vascular congestion of the liver. I will admit the patient to the inpatient medical service with telemetry and vital signs monitoring. Consult cardiology Continue with Lasix 40 mg IV twice a day and monitor his ins and outs closely. Repeat BMP tomorrow. Leukocytosis is most likely reactive. Repeat CBC tomorrow. Resume home medications SCDs for DVT prophylaxis Patient is full code (This note was generated with voice recognition software and may contain errors including spelling,grammar, syntax and misrecognition of what was dictated, that are not fully corrected) Boo Saeed MD [1] No past medical history on file. [2] No past surgical history on file. [3] No family history on file. documented in this [facility] Work Phone: 1(267) 729-355207-10-2025 Physician Emergency department Note* Rocky Everett DO - 09/20/2024 11:58 PM EDT HPI Chief Complaint Patient presents with Abdominal Pain Pt states she started gaining water weight on Tuesday, was put Lasix Tuesday, she has gained 10lbs since Tuesday. Mid abd pain worse since this AM. Hx of cardiomyopathy, liver disease, and pancreatitis. Sees [facility] in [facility] and was told to come to ED if she does not drop any weight. C/o Sob with activity since yesterday Patient presents to the emergency department secondary to dyspnea with exertion and abdominal pain.The patient has a history of hypertrophic cardiomyopathy. She also has a history of ongoing right upper quadrant and epigastric abdominal pain for the past 3 months that is still being worked up on an outpatient basis. She was advised to come to the emergency room by her established metal crafts teacher. History provided by: Patient educational sign language interpreter used: No Patient History Medical History[1] Surgical History[2] Family History[3] Social History[4] Physical Exam ED Triage Vitals [09/20/24 2329] Temperature Heart Rate Respirations BP 36.6 C (97.9 F) 66 18 (!) 147/100 Pulse Ox Temp src Heart Rate Source Patient Position 98 % -- -- -- BP Location FiO2 (%) -- -- Physical Exam Vitals and nursing note reviewed. Constitutional: General: She is not in acute distress. Appearance: Normal appearance. She is normal weight. She is not ill-appearing, toxic-appearing or diaphoretic. HENT: Head: Normocephalic and atraumatic. Nose: Nose normal. No rhinorrhea. Neck: Comments: Trachea is midline Cardiovascular: Rate and Rhythm: Normal rate and regular rhythm. Heart sounds: No murmur heard. Pulmonary: Effort: Pulmonary effort is normal. Breath sounds: Normal breath sounds. No wheezing. Abdominal: General: Abdomen is flat. Bowel sounds are normal. There is no distension. Palpations: Abdomen is soft. Tenderness: There is abdominal tenderness in the epigastric area. There is no right CVA tenderness,left CVA tenderness or guarding. Musculoskeletal: General: Normal range of motion. Cervical back: Normal range of motion. Skin: General: Skin is warm and dry. Findings: No rash. Neurological: General: No focal deficit present. Mental Status: She is alert and oriented to person, place, and time. Mental status is at baseline. Psychiatric: Mood and Affect: Mood normal. Behavior: Behavior normal. Thought Content: Thought content normal. Judgment: Judgment normal. ED Course & MDM Diagnoses as of 09/21/24 0249 Acute exacerbation of chronic heart failure Systolic congestive heart failure, unspecified HF chronicity No data recorded Medical Decision Making Twelve-lead EKG was interpreted by myself and this was noted to contribute directly to patient care. Study reveals a normal sinus rhythm at 65 bpm, leftward axis, delayed R wave progression, no acuteischemic changes. Patient was diuresed here in the emergency room. She was medicated for pain as well. Patient case was discussed with the hospitalist who agrees to admit the patient to their service. Patient is in agreement with this plan and will be admitted to the medical service in stable condition Procedure Procedures [1] No past medical history on file. [2] No past surgical history on file. [3] No family history on file. [4] Social History Tobacco Use Smoking status: Every Day Current packs/day: 0.50 Types: Cigarettes Smokeless tobacco: Never Substance Use Topics Alcohol use: Not on file Drug use: Not on file Rocky Everett DO 09/21/24 0250 [facility] Work Phone: 1([phone]) 114-603007-10-2025 Emergency department Note* Rocky Everett DO - 09/20/2024 11:58 PM EDT HPI Chief Complaint Patient presents with Abdominal Pain Pt states she started gaining water weight on Tuesday, was put Lasix Tuesday, she has gained 10lbs since Tuesday. Mid abd pain worse since this AM. Hx of cardiomyopathy, liver disease, and pancreatitis. Sees [place] in [facility] and was told to come to ED if she does not drop any weight. C/o Sob with activity since yesterday Patient presents to the emergency department secondary to dyspnea with exertion and abdominal pain.The patient has a history of hypertrophic cardiomyopathy. She also has a history of ongoing right upper quadrant and epigastric abdominal pain for the past 3 months that is still being worked up on an outpatient basis. She was advised to come to the emergency room by her established metal crafts teacher. History provided by: Patient educational sign language interpreter used: No Patient History Medical History[1] Surgical History[2] Family History[3] Social History[4] Physical Exam ED Triage Vitals [09/20/24 2329] Temperature Heart Rate Respirations BP 36.6 C (97.9 F) 66 18 (!) 147/100 Pulse Ox Temp src Heart Rate Source Patient Position 98 % -- -- -- BP Location FiO2 (%) -- -- Physical Exam Vitals and nursing note reviewed. Constitutional: General: She is not in acute distress. Appearance: Normal appearance. She is normal weight. She is not ill-appearing, toxic-appearing or diaphoretic. HENT: Head: Normocephalic and atraumatic. Nose: Nose normal. No rhinorrhea. Neck: Comments: Trachea is midline Cardiovascular: Rate and Rhythm: Normal rate and regular rhythm. Heart sounds: No murmur heard. Pulmonary: Effort: Pulmonary effort is normal. Breath sounds: Normal breath sounds. No wheezing. Abdominal: General: Abdomen is flat. Bowel sounds are normal. There is no distension. Palpations: Abdomen is soft. Tenderness: There is abdominal tenderness in the epigastric area. There is no right CVA tenderness,left CVA tenderness or guarding. Musculoskeletal: General: Normal range of motion. Cervical back: Normal range of motion. Skin: General: Skin is warm and dry. Findings: No rash. Neurological: General: No focal deficit present. Mental Status: She is alert and oriented to person, place, and time. Mental status is at baseline. Psychiatric: Mood and Affect: Mood normal. Behavior: Behavior normal. Thought Content: Thought content normal. Judgment: Judgment normal. ED Course & MDM Diagnoses as of 09/21/24 0249 Acute exacerbation of chronic heart failure Systolic congestive heart failure, unspecified HF chronicity No data recorded Medical Decision Making Twelve-lead EKG was interpreted by myself and this was noted to contribute directly to patient care. Study reveals a normal sinus rhythm at 65 bpm, leftward axis, delayed R wave progression, no acuteischemic changes. Patient was diuresed here in the emergency room. She was medicated for pain as well. Patient case was discussed with the hospitalist who agrees to admit the patient to their service. Patient is in agreement with this plan and will be admitted to the medical service in stable condition Procedure Procedures [1] No past medical history on file. [2] No past surgical history on file. [3] No family history on file. [4] Social History Tobacco Use Smoking status: Every Day Current packs/day: 0.50 Types: Cigarettes Smokeless tobacco: Never Substance Use Topics Alcohol use: Not on file Drug use: Not on file Rocky Everett DO 09/21/24 0250 documented in this [facility] Work Phone: 1(849) 704-431707-04-2025 [facility]07-03-2025 Progress note Author Emerson Sierra [facility] Note Date/Time September 13, 2024 4:14p [facility] Medical Records Department [address] [place] [address] Progress Note - Hospitalist 09/13/24 1612 MR#: [id number] Acct: [id number] Name: MICHELLE MITCHELL Rep #:[id number] : 1980 43 From: Emerson Arciniega PCP: Dr. Dex Wilkinson MD Status:A DM KISHA Location: [place] [address] Reason for Visit Reason for Visit: Diagnoses Elevated white blood cell count, unspecified (09/11/24) Other chronic pain (09/11/24) Unspecified abdominal pain (09/11/24) Abnormal levels of other serum enzymes (09/11/24) Other specified postprocedural states (09/11/24) Objective Data Objective Data Vital Signs: Vital Signs Temp Pulse Resp BP Pulse Ox O2 Del Method 97.5 F L 58 L 20 H 123/77 H 100 Room Air 09/13/24 12:25 09/13/24 12:25 09/13/24 12:25 09/13/24 12:25 09/13/24 12:25 09/13/24 13:52 Oxygen Delivery Method Room Air Weight: 130 lb 11.746 oz Body Mass Index (BMI) 22.4 Intake & Output: Intake and Output for Last 24 Hours 09/11/24 09/12/24 09/13/24 23:59 23:59 23:59 Intake Total 1000 / 1000 2860 / 2860 100 / 100 Balance 1000 / 1000 2860 / 2860 100 / 100 Lab / Micro Data 09/13/24 05:04 09/13/24 05:04 Labs: Laboratory Results - last 24 hr 09/12/24 05:36: GGT 39 09/13/24 05:04: WBC 19.2 H, RBC 4.14 L, Hgb 12.7, Hct 41.1, MCV 99.3 H, MCH 30.7, MCHC 30.9 L, RDW Std Deviation 52.7 H, RDW Coeff of Damon 14.5, Plt Count 359, MPV 10.5, Immature Gran % (Auto) 0.900, Neut % (Auto) 85.8 H, Lymph % (Auto) 6.3 L, [place] % (Auto) 6.7, Eos % (Auto) 0.1, Baso % (Auto) 0.2, Absolute Neuts (auto) 16.5 H, Absolute Lymphs (auto) 1.21, Nucleated RBC % 0, Sodium 133,Potassium 5.0, Chloride 101, Carbon Dioxide 17.5 L, Anion Gap 15, BUN 19, Creatinine 0.87, Estim Creat Clear Calc 71.26, Est GFR (MDRD) Non-Af 85, BUN/Creatinine Ratio 21.6 H, Glucose 79, Calcium 9.7, Phosphorus 5.2 H, Total Bilirubin 1.13, Direct Bilirubin 0.41 H, AST 34 H, ALT 28, Alkaline Phosphatase 146 H, Total Protein 7.3, Albumin 4.5, Globulin 2.8 Radiography Diagnostic Testing: Radiology Impression Abdomen/Pelvis CT 09/12/24 19:58 IMPRESSION: 1. No significant interval change. The biliary and pancreatic stents are in unchanged position, and there is trace left pneumobilia which is also unchanged. 2. Heterogeneous enhancement of the mildly enlarged liver, without discrete lesion. Differential again includes hepatitis, hepatic fibrosis, or transient hepatic attenuation differences (GIL), amongst other etiologies. Correlate with laboratory analysis. 3. Trace perihepatic ascites and small volume of pelvic free fluid. Reading Location: [id number] Physical Exam Narrative Seen and examined In afternoon, patient abdominal pain came back. She feels like it is coming in the waves from epigastrium or around right anterior abdominal wall and goes to the back. She says does not feel good to go home. Discharge canceled She had Dilaudid in afternoon. Patient denies any fever or chills. Vitals in normal range. Complain of epigastric abdominal pain which is acute on chronic. Denies prior history of acute or chronic pancreatitis, had cholecystectomy. She had ERCP and stent in pancreatic and bile duct. Personal and family history of HOCM status post defibrillator. She stated OCOM more prevalent in female than male in her family. In the past had 1 shock due to lead malfunction but not from cardiac arrest. Physical exam General: Alert, Oriented x3, Cooperative. BMI 21.7 kg/m? HEENT: Atraumatic, PERRLA, EOMI, Normocephalic. Oral: No Gingival or Mucosal Lesions/ Ulcerations Neck: Supple, No JVD, Negative Carotid Bruits Chest wall/Lungs: Air entry diminished in bilateral lung bases. No crepitation/rhonchi Cardiovascular: Pulse bisferiens on carotid palpation. regular rate and rhythm, Normal S1,S2, systolic murmur Abdomen: Tenderness present on epigastrium/RUQ. Bowel Sounds Present, Soft, nondistended : No dysuria. No renal angle tenderness. No suprapubic tenderness. Extremities: No edema, Capillary Refill Less than 3 Seconds Skin: No rashes, No breakdown Musculoskeletal: No Tenderness to Palpation of Joints or Extremities Neurological: Cranial nerves II-XII grossly intact, DTR 2+/4. No acute focal neurological deficit. Psych/Mental Status: Normal Affect, Appropriate. Const alert, oriented x3, no apparent distress, average body habitus and healthy appearing Constitutional Narrative: Patient is tearful and bitterly complaining of severe abdominal pain out of proportion to her physical exam. General Appearance: cooperative HEENT normocephalic, head/scalp atraumatic, hearing grossly normal bilaterally and moist oral mucous membranes Eyes PERRL and EOMs intact bilaterally Neck no lymphadenopathy, supple and no JVD Resp normal respiratory effort, no retractions, no use of accessory muscles and clearto auscultation bilaterally Cardio regular rate and regular rhythm GI normal to inspection, nondistended, normoactive bowel sounds and soft to palpation GI Narrative: Patient's abdomen is diffusely tender with voluntary guarding without rebound orrigidity. Extremity normal to inspection, full ROM and no clubbing, cyanosis or edema Skin Skin Narrative: Patient has no evidence of rash, abscess, wounds or jaundice. Neuro oriented x3, CN's II-XII intact bilaterally, moves all extremities and no focal motor deficits Sensorium / Orientation: awake, alert, oriented to person, oriented to place andoriented to time Speech: speech normal Psych Mood & Affect: depressed and anxious Assessment & Plan Assessment/Plan (1) Intractable abdominal pain: (2) Chronic abdominal pain: (3) History of celiac plexus block: (4) Elevated lipase: (5) Leukocytosis: QUALIFIERS: Leukocytosis type: unspecified Qualified Code(s): D72.829 - Elevated white blood cell count, unspecified (6) History of biliary stent insertion: (7) History of insertion of pancreatic stent: PLAN: Plan 43-year-old female admitted with RUQ/epigastric pain, back pain and generalized allover pain. Dr. Dennison has performed celiac block due to pain but that did not improve the pain. No fever or chills. 1. Intractable [id number] abdominal pain after recent failed celiac plexus block - Admit to general medical floor under observation status. GI consulted. Change PPI IV pantoprazole once daily. Exact etiology of pain not clear. 09/13: Advised follow-up with the pain rn document improvement specialist Dr. Dennison. Patient got relief with the fentanyl patch therefore advised to continue. Unintentionaloverdose risk score is above average, 380 and also she is on Xanax 0.5 mg twice daily therefore advised to follow-up with Dr. Dennison pain medication prescription. In afternoon, her abdominal pain came back. She had Dilaudid 1 mg. On fentanylpatch 25 mcg every 72 hours. Discharge is canceled. The patient does not feel confident to take her home. He said she will come right back in the ER 2. Mildly elevated lipase of 113 U/L present on admission - Doubt acute pancreatitis. Leukocytosis 13.7, probably inflammatory to she denies prior history of acute or chronic pancreatitis. Keep n.p.o. except medications and ice chips with sips and hydrate with NS at 150 cc/h x 2L. Repeat lipase tomorrow a.m. 3. History of biliary stent and pancreatic stent with chronic abdominal pain status post recent celiac plexus block procedure: She had ERCP 08/21/2024 which showed single localized biliary stricture in the lower third of CBD. Mid dilatation of pancreatic duct in the genu of PD and pancreatic duct stricture. Choledocholithiasis found and complete removal accomplished by balloon extraction and sphincterotomy. Single pancreatic stone found. Biliary tree wasswept. Cells for cytology obtained, 1 temporary stent into CBD and 1 temporary stent in ventral pancreatic duct. Cells brushing reported no malignant cells. 09/13: Heart rate is controlled. CT abdomen with and without contrast shows a stent in CBD at the point previous CT of 09/11. Trace pneumobilia probably from previous ERCP. Vasculature mild aortic atherosclerosis otherwise no acute abnormality. Impression: No significant interval change. . 4. Recent admission here from July 20, 2024 to July 24, 2024 for treatment of AE CHF with elevated NT pro-BNP II of 6,468 pg/mL present on admission with corresponding CT evidence of pulmonary vascular congestion complicated by mildlyelevated troponin and leukocytosis of 14.3 K with left shift of 1% due to possible superimposed pneumonia - Noted. 5. HOCM status post AICD with family history: Chronic history of dyspnea on exertion, stated had to stop twice on climbing 1 flight of stair but no significant problem on walking 500 feet on level ground. 6. Multiple other comorbidities which include chronic intermittent asthma, migraine headache, generalized anxiety and insomnia: Home medication decussationdone. 7. DVT prophylaxis - Enoxaparin 40 mg sq daily plus SCD's. Discharge medication reconciliation done. Discharge follow-up instructions completed. Discharge process discussed with the patient and all questions wereanswered to patient's satisfaction. Follow with PCP in 1 to 2 weeks Total time spent, exact 35 minutes on discharge meds reconciliation, examination, coordination of care with nurses and ancillary staff, review of imaging and blood test and discussion with the patient on follow-up instructions. Charges/Coding Visit Charges Inpatient E&M: 46648 Subs Hosp L2 09/13/24 1614 <Electronically signed by Emerson Sierra MD> Cosigner Signature (if applicable): CC: ~ Signed [facility] Work Phone: 1(350) 793-591107-03-2025 Discharge summary Author Emerson Sierra [facility] Note Date/Time September 13, 2024 1:46p m [facility] Medical Records Department [address] [place] [address] [place] [address] Discharge Summary 09/13/24 1237 MR#: [id number] Acct: [id number] Name: MICHELLE MITCHELL Rep #:[id number] : 1980 43 From: Emerson Arciniega PCP: Dr. Dex Wilkinson MD Status:A DM KISHA Location: [place] [address] Providers Date of Admission: 09/11/24 Date of Discharge: 09/13/24 Primary Care Physician: Dr. Dex Wilkinson MD Consultations 09/12/24 00:20 Consult: Gastroenterology Routine Consulting Provider: [facility] Reason for Consult: Intractable abdominal pain after recent failed celiac plexus block. EMERGENT Consult: No MD Notified: Yes Date Notified: 09/12/24 Time Notified: 06:14 Method of Notification: Text Reason For Visit: INTRACTABLE ABDOMINAL PAIN AFTER RECENT FAILED Diagnosis Discharge Diagnosis (1) Intractable abdominal pain: Status: Acute Code(s): R10.9 - Unspecified abdominal pain (2) Chronic abdominal pain: Status: Chronic Code(s): R10.9 - Unspecified abdominal pain; G89.29 - Other chronic pain (3) History of celiac plexus block: Status: Acute Code(s): Z98.890 - Other specified postprocedural states (4) Elevated lipase: Status: Acute Code(s): R74.8 - Abnormal levels of other serum enzymes (5) Leukocytosis: Status: Acute Code(s): D72.829 - Elevated white blood cell count, unspecified Qualifiers: Leukocytosis type: unspecified Qualified Code(s): D72.829 - Elevated white blood cell count, unspecified (6) History of biliary stent insertion: Status: Acute Code(s): Z98.890 - Other specified postprocedural states (7) History of insertion of pancreatic stent: Status: Acute Code(s): Z98.890 - Other specified postprocedural states Plan 43-year-old female admitted with RUQ/epigastric pain, back pain and generalized allover pain. Dr. Dennison has performed celiac block due to pain but that did not improve the pain. No fever or chills. 1. Intractable [id number] abdominal pain after recent failed celiac plexus block - Admit to general medical floor under observation status. GI consulted. Change PPI IV pantoprazole once daily. Exact etiology of pain not clear. 09/13: Advised follow-up with the pain rn document improvement specialist Dr. Dennison. Patient got relief with the fentanyl patch therefore advised to continue. Unintentionaloverdose risk score is above average, 380 and also she is on Xanax 0.5 mg twice daily therefore advised to follow-up with Dr. Dennison pain medication prescription. 2. Mildly elevated lipase of 113 U/L present on admission - Doubt acute pancreatitis. Leukocytosis 13.7, probably inflammatory to she denies prior history of acute or chronic pancreatitis. Keep n.p.o. except medications and ice chips with sips and hydrate with NS at 150 cc/h x 2L. Repeat lipase tomorrow a.m. 3. History of biliary stent and pancreatic stent with chronic abdominal pain status post recent celiac plexus block procedure: She had ERCP 08/21/2024 which showed single localized biliary stricture in the lower third of CBD. Mid dilatation of pancreatic duct in the genu of PD and pancreatic duct stricture. Choledocholithiasis found and complete removal accomplished by balloon extraction and sphincterotomy. Single pancreatic stone found. Biliary tree wasswept. Cells for cytology obtained, 1 temporary stent into CBD and 1 temporary stent in ventral pancreatic duct. Cells brushing reported no malignant cells. 09/13: Heart rate is controlled. CT abdomen with and without contrast shows a stent in CBD at the point previous CT of 09/11. Trace pneumobilia probably from previous ERCP. Vasculature mild aortic atherosclerosis otherwise no acute abnormality. Impression: No significant interval change. . 4. Recent admission here from July 20, 2024 to July 24, 2024 for treatment of AE CHF with elevated NT pro-BNP II of 6,468 pg/mL present on admission with corresponding CT evidence of pulmonary vascular congestion complicated by mildlyelevated troponin and leukocytosis of 14.3 K with left shift of 1% due to possible superimposed pneumonia - Noted. 5. HOCM status post AICD with family history: Chronic history of dyspnea on exertion, stated had to stop twice on climbing 1 flight of stair but no significant problem on walking 500 feet on level ground. 6. Multiple other comorbidities which include chronic intermittent asthma, migraine headache, generalized anxiety and insomnia: Home medication decussationdone. 7. DVT prophylaxis - Enoxaparin 40 mg sq daily plus SCD's. Discharge medication reconciliation done. Discharge follow-up instructions completed. Discharge process discussed with the patient and all questions wereanswered to patient's satisfaction. Follow with PCP in 1 to 2 weeks Total time spent, exact 35 minutes on discharge meds reconciliation, examination, coordination of care with nurses and ancillary staff, review of imaging and blood test and discussion with the patient on follow-up instructions. Medications at Discharge Home Medications alprazolam 0.5 mg tablet 0.5 mg PO BID ANXIETY 11/13/21 zolpidem 10 mg tablet 10 mg PO QHS SLEEP 11/13/21 sucralfate 1 gram tablet (Carafate) 1 g PO BIDCM GERD 07/10/24 metoprolol succinate 25 mg tablet,extended release 24 hr 25 mg PO QDAY HEART 08/08/24 pantoprazole 40 mg tablet,delayed release 40 mg PO BID GERD 08/11/24 spironolactone 25 mg tablet 25 mg PO DAILY WATER PILL 08/20/24 ondansetron 4 mg disintegrating tablet 4 mg PO Q8H PRN nausea and vomiting 2 weeks #20 tabs 09/13/24 Physical Exam Narrative Seen and examined Abdominal pain is controlled. Patient denies any fever or chills. Vitals in normal range. Complain of epigastric abdominal pain which is acute on chronic. Denies prior history of acute or chronic pancreatitis, had cholecystectomy. She had ERCP and stent in pancreatic and bile duct. Personal and family history of HOCM status post defibrillator. She stated OCOM more prevalent in female than male in her family. In the past had 1 shock due to lead malfunction but not from cardiac arrest. Physical exam General: Alert, Oriented x3, Cooperative. BMI 21.7 kg/m? HEENT: Atraumatic, PERRLA, EOMI, Normocephalic. Oral: No Gingival or Mucosal Lesions/ Ulcerations Neck: Supple, No JVD, Negative Carotid Bruits Chest wall/Lungs: Air entry diminished in bilateral lung bases. No crepitation/rhonchi Cardiovascular: Pulse bisferiens on carotid palpation. regular rate and rhythm, Normal S1,S2, systolic murmur Abdomen: Tenderness present on epigastrium/RUQ. Bowel Sounds Present, Soft, nondistended : No dysuria. No renal angle tenderness. No suprapubic tenderness. Extremities: No edema, Capillary Refill Less than 3 Seconds Skin: No rashes, No breakdown Musculoskeletal: No Tenderness to Palpation of Joints or Extremities Neurological: Cranial nerves II-XII grossly intact, DTR 2+/4. No acute focal neurological deficit. Psych/Mental Status: Normal Affect, Appropriate. Weight / BMI Weight Weight: 130 lb 11.746 oz Body Mass Index (BMI) 22.4 ABG / Lab / Microbiology Data 09/13/24 05:04 09/13/24 05:04 Laboratory: Laboratory Results - last 24 hr 09/12/24 05:36: GGT 39 09/13/24 05:04: WBC 19.2 H, RBC 4.14 L, Hgb 12.7, Hct 41.1, MCV 99.3 H, MCH 30.7, MCHC 30.9 L, RDW Std Deviation 52.7 H, RDW Coeff of Damon 14.5, Plt Count 359, MPV 10.5, Immature Gran % (Auto) 0.900, Neut % (Auto) 85.8 H, Lymph % (Auto) 6.3 L, Upson % (Auto) 6.7, Eos % (Auto) 0.1, Baso % (Auto) 0.2, Absolute Neuts (auto) 16.5 H, Absolute Lymphs (auto) 1.21, Nucleated RBC % 0, Sodium 133,Potassium 5.0, Chloride 101, Carbon Dioxide 17.5 L, Anion Gap 15, BUN 19, Creatinine 0.87, Estim Creat Clear Calc 71.26, Est GFR (MDRD) Non-Af 85, BUN/Creatinine Ratio 21.6 H, Glucose 79, Calcium 9.7, Phosphorus 5.2 H, Total Bilirubin 1.13, Direct Bilirubin 0.41 H, AST 34 H, ALT 28, Alkaline Phosphatase 146 H, Total Protein 7.3, Albumin 4.5, Globulin 2.8 Radiography Diagnostic Testing: Radiology Impression Abdomen/Pelvis CT 09/12/24 19:58 IMPRESSION: 1. No significant interval change. The biliary and pancreatic stents are in unchanged position, and there is trace left pneumobilia which is also unchanged. 2. Heterogeneous enhancement of the mildly enlarged liver, without discrete lesion. Differential again includes hepatitis, hepatic fibrosis, or transient hepatic attenuation differences (GIL), amongst other etiologies. Correlate with laboratory analysis. 3. Trace perihepatic ascites and small volume of pelvic free fluid. Reading Location: [id number]/C Instructions Discharge Diet: Light diet - advance as tolerated and Soft diet DC O2, CPAP, BIPAP Needs Home O2 Discharge instructions: No Meaningful Use Info Meaningful Use Meaningful Use Diagnoses (Choose all that apply): None applicable Ischemic Stroke Statin Dosing Therapy Reference: STATIN [...] Simvastatin 80mg Discharge Plan Admission Admit Date/Time: 09/11/24 23:43 Primary Reason for Your Visit: Abdominal pain, intractable nausea vomiting Attending Provider: Emerson Sierra Primary Care Provider: Dex Wilkinson Consulting Providers: Sergio Umaña Discharge Orders/Prescriptions Prescriptions: New ondansetron 4 mg tablet,disintegrating 4 mg PO Q8H PRN (Reason: nausea and vomiting) 14 Days Qty: 20 0RF Continued metoprolol succinate 25 mg tablet extended release 24 hr 25 mg PO QDAY alprazolam 0.5 mg tablet 0.5 mg PO BID Patient Comments: TAKE 1 TABLET BY MOUTH TWICE DAILY zolpidem 10 mg tablet 10 mg PO QHS sucralfate [Carafate] 1 gram tablet 1 g PO BIDCM pantoprazole 40 mg tablet,delayed release (DR/EC) 40 mg PO BID spironolactone 25 mg tablet 25 mg PO DAILY Referrals / Follow Up: Aliya Dennison MD [Med Staff - Active Staff] - Within 1 Week Dex Wilkinson MD [Primary Care Provider] - Within 1 Week Quang Myles DO [Med Staff - Active Staff] - Within 1 Month Disposition Disposition (needs filled in before D/C Order can be placed): Home, Self Care Charges/Coding Visit Charges Inpatient E&M: 18995 Disch Hosp >30min 09/13/24 1242 <Electronically signed by Emerson Sierra MD> Cosigner Signature (if applicable): CC: Dr. Dex Wilkinson MD; Dr. Emerson Sierra MD~ Signed ADDENDUM by Dr. Emerson Sierra MD on 09/13/24 at 1346 Addendum Patient complain of hemorrhoidal bleed in the morning today. H&H in the morningis 12.7/41.7. Did not show major drop in the H&H. Hemorrhoidal cream prescribed. Advised follow-up in the GI office. 09/13/24 1346<Electronically signed by Emerson Sierra MD> Cosigner Signature (if applicable): cc: Dr. Dex Wilkinson MD; Dr. Emerson Sierra MD ~* Signed [facility] Work Phone: 1(116) 769-205607-03-2025 Discharge summary Author Emerson Sierra [facility] Note Date/Time September 13, 2024 12:37 pm [facility] Medical Records Department [address] [place] [address] Instructions for Home/Discharge Instructions 09/13/24 1219 MR#: [id number] Acct: [id number] Name: MICHELLE MITCHELL Rep #:[id number] : 1980 43 From: Emerson Arciniega PCP: Dr. Dex Wilkinson MD Status:A DM KISHA Discharge Instructions Diet Discharge Diet: Light diet - advance as tolerated and Soft diet DC O2, CPAP, BIPAP needs Home O2 Discharge instructions: No Follow Up Care Test Results: Test results from this visit will be discussed in further detail at your follow- up appointment, if applicable. Discharge Plan Admission Admit Date/Time: 09/11/24 23:43 Primary Reason for Your Visit: Abdominal pain, intractable nausea vomiting Attending Provider: Emerson Sierra Primary Care Provider: Dex Wilkinson Consulting Providers: Sergio Umaña Discharge Orders/Prescriptions Prescriptions: New ondansetron 4 mg tablet,disintegrating 4 mg PO Q8H PRN (Reason: nausea and vomiting) 14 Days Qty: 20 0RF Continued metoprolol succinate 25 mg tablet extended release 24 hr 25 mg PO QDAY alprazolam 0.5 mg tablet 0.5 mg PO BID Patient Comments: TAKE 1 TABLET BY MOUTH TWICE DAILY zolpidem 10 mg tablet 10 mg PO QHS sucralfate [Carafate] 1 gram tablet 1 g PO BIDCM pantoprazole 40 mg tablet,delayed release (DR/EC) 40 mg PO BID spironolactone 25 mg tablet 25 mg PO DAILY Referrals / Follow Up: Aliya Dennison MD [Med Staff - Active Staff] - Within 1 Week Dex Wilkinson MD [Primary Care Provider] - Within 1 Week Quang Myles DO [Med Staff - Active Staff] - Within 1 Month Disposition Disposition (needs filled in before D/C Order can be placed): Home, Self Care 09/13/24 1237<Electronically signed by Emerson Sierra MD>Emerson Sierra MD CC: Dr. Sergio Umaña DO; Dr. Dex Wilkinson MD ~ Signed [facility] Work Phone: 1(989) 277-508907-03-2025 [facility]07-02-2025 Radiology Diagnostic study [facility]07-02-2025 Consult note Author Quang Myles [facility] Note Date/Time September 12, 2024 6:39p m [facility] Medical Records Department [address] [place] [address] Consultation - GI 09/12/24 1834 MR#: [id number] Acct: [id number] Name: MICHELLE MITCHELL Rep #:[id number] : 1980 43 From: Quang Myles DO PCP: Dr. Dex Wilkinson MD Status:A DM KISHA Location: [place] [address] HPI Consult Data Date of Consult: 09/12/24 HPI Narrative HPI Narrative: MICHELLE MITCHELL, is a 43 yo female pt here today for evaluation of abdominal pain x3 days. She is known to the GI service. She recently underwent a celiac plexus block that the patient says was unsuccessful for chronic abdominal pain. I initially saw her when she presented to the ED 07.01.24 with complaints of abdpain and underwent CT which showed thickening in the colon concerning for IBD. Pt pain has continued to increase since the ED. She endorsed constipation, diffuse abd pain, nausea and vomiting. She will undergo EGD and colonoscopy for assessment of her lower and upper GI tract. She also was recently in the hospital for paroxysmal nocturnal dyspnea. Patienthas a history of familial hypertrophic cardiomyopathy. She also has a personal history of hypertrophic cardiomyopathy and has had a AICD for multiple years. Isaw in a hospital consultation for abdominal pain and bloating. Her repeat ejection fraction went from 50% down to 35%. Also her pulmonary pressures went up from 58-77. She was transferred to outside facility. They controlled her with medical therapy after getting her BNP down from 60 400-100. She still having a lot of abdominal pain. I had drawn some liver test and she has biochemical evidence ofcholestatic hepatitis. Her CT scan did show hepatomegaly which was thought to be secondary to heart failure but it also did show a double duct sign. I have ordered an MRCP but she has an AICD so I am awaiting possible clearance by radiology so she can get MRCP. If that is not possible then she may need an ERCP to evaluate her for postcholecystectomy sphincter of Oddi syndrome, choledocholithiasis, ampullary lesion. She was not able to get her outpatient MRCP and presented back to the emergency room today. Her liver enzymes are showing a more cholestatic pattern. She had an ultrasound that showed dilated pancreatic duct to 6.4 mm with a 6 mm common bile duct. No obvious stones or lesions were seen. However her LFTs continue to rise. She underwent ERCP with stone removal out ofthe common bile duct, stricture dilation involving the ampulla and distal commonbile duct and dilation of the pancreatic duct was seen. Currently she is in a lot abdominal pain. She got a CT scan abdomen pelvis thatdid not show any acute abnormality. In the ED her lipase was slightly elevated but has come back down with fluid administration. [facility] Medical History Dilated pancreatic duct Abdominal pain Hypertension Severe pulmonary hypertension History of hypertrophic cardiomyopathy Acute systolic congestive heart failure, NYHA class 3 Leukocytosis Cancer History of steroid therapy Easy bruising Migraine headache History of hiatal hernia History of ulceration History of IBS Abdominal bloating Stomach pain Nausea & vomiting Shortness of breath on exertion Smoker History of echocardiogram Chest pain Pulmonary embolism Endometrial cancer Cervical cancer longterm current use of 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 Ovarian cancer GERD (gastroesophageal reflux disease) Insomnia Anxiety Collapsed lung History of blood clots Asthma Breast cancer Pacemaker ICD (implantable cardioverter-defibrillator) in place Hypertrophic cardiomyopathy Home Medications ?Medication ?Instructions ?Recorded ?Last Taken ?Type alprazolam 0.5 mg tablet 0.5 mg PO BID ANXIETY 09/11/24 History zolpidem 10 mg tablet 10 mg PO QHS SLEEP 11/13/21 09/10/24 History sucralfate 1 gram tablet (Carafate) 1 g PO BIDCM GERD 07/10/24 09/10/24 History metoprolol succinate 25 mg 25 mg PO QDAY HEART 5 09/10/24 History tablet,extended release 24 hr pantoprazole 40 mg tablet,delayed 40 mg PO BID GERD 09/10/24 History release spironolactone 25 mg tablet 25 mg PO DAILY WATER PILL 08/20/24 09/10/24 History Allergy/AdvReac Type Severity Reaction Status Date / Time morphine Allergy Mild Hives Verified 09/11/24 17:21 codeine Allergy Hives Verified 09/11/24 17:21 erythromycin base Allergy PT UNSURE Verified 09/11/24 17:21 OF REACTION Fish Containing Products Allergy Other Verified 09/11/24 17:21 levofloxacin Allergy PT UNSURE Verified 09/11/24 17:21 OF REACTION shellfish derived Allergy Other Verified 09/11/24 17:21 tramadol Allergy Hives Verified 09/11/24 17:21 trimethobenzamide (From Allergy Other Verified 09/11/24 17:21 Tigan) gabapentin (From Neurontin) AdvReac Severe Anaphylaxis Verified 09/11/24 17:21 acetaminophen (From Vicodin) AdvReac Other Verified 09/11/24 17:21 hydrocodone (From Vicodin) AdvReac Other Verified 09/11/24 17:21 metoclopramide (From Reglan) AdvReac Other Verified 09/11/24 17:21 Family History Father Heart disease Idiopathic hypertrophic [...] use caffeine: Yes ROS Constitutional Constitutional: Denies fatigue, fever(s), poor appetite, weight gain or weight loss Gastrointestinal Gastrointestinal: Denies belching, bloating, change in bowel habits, change in stool character, chewing difficulty, coffee ground emesis, constipation, cramping, diarrhea, dyspepsia, dysphagia, early satiety, excessive flatus, fecalincontinence, heartburn, hematemesis, hematochezia, hemorrhoids, loose stools, melena, nausea, odynophagia, rectal bleeding, tenesmus, vomiting or weight changes Lab / Micro Data 09/12/24 05:36 09/12/24 05:36 Labs: Laboratory Results - last 24 hr 09/11/24 19:39: WBC 14.8 H, RBC 4.60, Hgb 14.1, Hct 43.2, MCV 93.9, MCH 30.7, MCHC 32.6, RDW Std Deviation 49.7 H, RDW Coeff of Damon 14.5, Plt Count 338, MPV 11.1, Immature Gran % (Auto) 0.500, Neut % (Auto) 94.8 H, Lymph % (Auto) 3.5 L, Upson % (Auto) 0.7, Eos % (Auto) 0.1, Baso % (Auto) 0.4, Absolute Neuts (auto) 14.0 H, Absolute Lymphs (auto) 0.51 L, Nucleated RBC % 0, Sodium 137, Potassium 4.2, Chloride 104, Carbon Dioxide 18.9 L, Anion Gap 14, BUN 17, Creatinine 0.84,Estim Creat Clear Calc 73.80, Est GFR (MDRD) Non-Af 88, BUN/Creatinine Ratio 20.4 H, Glucose 107 H, Calcium 9.7, Total Bilirubin 0.87, AST 27, ALT 24, Alkaline Phosphatase 164 H, Total Protein 7.5, Albumin 4.4, Globulin 3.1, Albumin/Globulin Ratio 1.4, Lipase 112 H 09/11/24 21:30: Urine Color Yellow, Urine Clarity Sl. Cloudy, Urine pH 7.0, Ur Specific [place] 1.010, Urine Protein 100 H, Urine Glucose (UA) Normal, Urine Ketones Negative, Urine Occult Blood 50 H, Urine Nitrite Negative, Urine Bilirubin Negative, Urine Urobilinogen 1 H, Ur Leukocyte Esterase Negative, Urine RBC 0-5 SEEN, Urine WBC 0-5 SEEN, Ur Squamous Epith Cells 10-25 SEEN, Urine Bacteria 0 SEEN, Urine Mucus 0 SEEN 09/11/24 22:00: WBC 13.7 H, RBC 4.45, Hgb 13.8, Hct 42.0, MCV 94.4, MCH 31.0, MCHC 32.9, RDW Std Deviation 49.9 H, RDW Coeff of Damon 14.6, Plt Count 349, MPV 10.2, Immature Gran % (Auto) 0.600, Neut % (Auto) 94.7 H, Lymph % (Auto) 3.6 L, Upson % (Auto) 0.7, Eos % (Auto) 0.1, Baso % (Auto) 0.3, Absolute Neuts (auto) 13.0 H, Absolute Lymphs (auto) 0.49 L, Nucleated RBC % 0, Sodium 138, Potassium 4.1, Chloride 105, Carbon Dioxide 17.8 L, Anion Gap 15, BUN 19, Creatinine 0.77,Estim Creat Clear Calc 80.51, Est GFR (MDRD) Non-Af 97, BUN/Creatinine Ratio 24.2 H, Glucose 132 H, Lactic Acid 1.6, Calcium 9.4, Magnesium 1.8, Total Bilirubin 0.97, Direct Bilirubin 0.50 H, AST 23, ALT 17, Alkaline Phosphatase 163 H, Total Protein 7.4, Albumin 4.4, Globulin 3.0, Lipase 113 H, Serum , Qual NEGATIVE 09/12/24 05:36: WBC 18.7 H, RBC 4.37, Hgb 13.5, Hct 42.4, MCV 97.0, MCH 30.9, MCHC 31.8 L, RDW Std Deviation 51.8 H, RDW Coeff of Damon 14.6, Plt Count 309, MPV 10.4, Immature Gran % (Auto) 0.500, Neut % (Auto) 94.8 H, Lymph % (Auto) 2.8 L, Upson % (Auto) 1.7, Eos % (Auto) 0.0, Baso % (Auto) 0.2, Absolute Neuts (auto) 17.7 H, Absolute Lymphs (auto) 0.53 L, Nucleated RBC % 0, Sodium 135, Potassium 4.8, Chloride 104, Carbon Dioxide 15.3 L, Anion Gap 15, BUN 16, Creatinine 0.74,Estim Creat Clear Calc 83.77, Est GFR (MDRD) Non-Af 102, BUN/Creatinine Ratio 21.9 H, Glucose 123 H, Calcium 9.0, Phosphorus 3.7, Total Bilirubin 1.02, AST 28, ALT 19, Alkaline Phosphatase 146 H, Total Protein 7.0, Albumin 4.2, Globulin2.8, Albumin/Globulin Ratio 1.5, Lipase 50, TSH 1.410 Imaging Radiology Impression Abdomen/Pelvis CT 09/11/24 22:28 IMPRESSION: Medical liver disease. Correlate for possible hepatitis. Reading Location: [place] [address] Assessment & Plan Assessment/Plan (1) Intractable abdominal pain: (2) Chronic abdominal pain: (3) History of celiac plexus block: (4) Elevated lipase: (5) Leukocytosis: QUALIFIERS: Leukocytosis type: unspecified Qualified Code(s): D72.829 - Elevated white blood cell count, unspecified (6) History of biliary stent insertion: (7) History of insertion of pancreatic stent: PLAN: Plan 43-year-old female admitted with RUQ/epigastric pain, back pain and generalized allover pain. She is status post celiac plexus block. 1. Abdominal pain of unknown etiology at this time. I will get a CT scan abdomen pelvis with oral and IV contrast. Continue PPI drip for now. I will also put her on a fentanyl patch to hopefully lessen the requirement for some pain medicine 2. Mildly elevated lipase of 113 U/L present on admission no sign of pancreatitis on imaging. 3. There were no malignant cells seen in the biliary stricture. She will need to have repeat ERCP in the future to remove her pancreatic and biliary stents. Charges/Coding Visit Charges Inpatient E&M: 08651 Init Hosp L3 09/12/24 1839 <Electronically signed by Quang Friend DO> Cosigner Signature (if applicable): CC: Dr. Dex Wilkinson MD~ Signed [facility] Work Phone: 1(606) 676-591107-02-2025 Progress note Author Emerson Sierra [facility] Note Date/Time September 12, 2024 11:29 am [facility] Medical Records Department [address] [place] [address] Progress Note - Hospitalist 09/12/24 0958 MR#: [id number] Acct: [id number] Name: MICHELLE MITCHELL Rep #:[id number] : 1980 43 From: Emerson Arciniega PCP: Dr. Dex Wilkinson MD Status:A DM KISHA [id number] Reason for Visit Reason for Visit: Diagnoses Elevated white blood cell count, unspecified (09/11/24) Other chronic pain (09/11/24) Unspecified abdominal pain (09/11/24) Abnormal levels of other serum enzymes (09/11/24) Other specified postprocedural states (09/11/24) Objective Data Objective Data Vital Signs: Vital Signs Temp Pulse Resp BP Pulse Ox O2 Del Method 97.3 F L 77 20 H 126/103 H 100 Room Air 09/12/24 08:18 09/12/24 08:29 09/12/24 08:18 09/12/24 08:18 09/12/24 08:18 09/12/24 08:18 Oxygen Delivery Method Room Air Weight: 126 lb 8.725 oz Body Mass Index (BMI) 21.7 Intake & Output: Intake and Output for Last 24 Hours 09/10/24 09/11/24 09/12/24 23:59 23:59 23:59 Intake Total 1000 / 1000 1740 / 1740 Balance 1000 / 1000 1740 / 1740 Lab / Micro Data 09/12/24 05:36 09/12/24 05:36 Labs: Laboratory Results - last 24 hr 09/11/24 19:39: WBC 14.8 H, RBC 4.60, Hgb 14.1, Hct 43.2, MCV 93.9, MCH 30.7, MCHC 32.6, RDW Std Deviation 49.7 H, RDW Coeff of Damon 14.5, Plt Count 338, MPV 11.1, Immature Gran % (Auto) 0.500, Neut % (Auto) 94.8 H, Lymph % (Auto) 3.5 L, Upson % (Auto) 0.7, Eos % (Auto) 0.1, Baso % (Auto) 0.4, Absolute Neuts (auto) 14.0 H, Absolute Lymphs (auto) 0.51 L, Nucleated RBC % 0, Sodium 137, Potassium 4.2, Chloride 104, Carbon Dioxide 18.9 L, Anion Gap 14, BUN 17, Creatinine 0.84,Estim Creat Clear Calc 73.80, Est GFR (MDRD) Non-Af 88, BUN/Creatinine Ratio 20.4 H, Glucose 107 H, Calcium 9.7, Total Bilirubin 0.87, AST 27, ALT 24, Alkaline Phosphatase 164 H, Total Protein 7.5, Albumin 4.4, Globulin 3.1, Albumin/Globulin Ratio 1.4, Lipase 112 H 09/11/24 21:30: Urine Color Yellow, Urine Clarity Sl. Cloudy, Urine pH 7.0, Ur Specific [place] 1.010, Urine Protein 100 H, Urine Glucose (UA) Normal, Urine Ketones Negative, Urine Occult Blood 50 H, Urine Nitrite Negative, Urine Bilirubin Negative, Urine Urobilinogen 1 H, Ur Leukocyte Esterase Negative, Urine RBC 0-5 SEEN, Urine WBC 0-5 SEEN, Ur Squamous Epith Cells 10-25 SEEN, Urine Bacteria 0 SEEN, Urine Mucus 0 SEEN 09/11/24 22:00: WBC 13.7 H, RBC 4.45, Hgb 13.8, Hct 42.0, MCV 94.4, MCH 31.0, MCHC 32.9, RDW Std Deviation 49.9 H, RDW Coeff of Damon 14.6, Plt Count 349, MPV 10.2, Immature Gran % (Auto) 0.600, Neut % (Auto) 94.7 H, Lymph % (Auto) 3.6 L, Upson % (Auto) 0.7, Eos % (Auto) 0.1, Baso % (Auto) 0.3, Absolute Neuts (auto) 13.0 H, Absolute Lymphs (auto) 0.49 L, Nucleated RBC % 0, Sodium 138, Potassium 4.1, Chloride 105, Carbon Dioxide 17.8 L, Anion Gap 15, BUN 19, Creatinine 0.77,Estim Creat Clear Calc 80.51, Est GFR (MDRD) Non-Af 97, BUN/Creatinine Ratio 24.2 H, Glucose 132 H, Lactic Acid 1.6, Calcium 9.4, Magnesium 1.8, Total Bilirubin 0.97, Direct Bilirubin 0.50 H, AST 23, ALT 17, Alkaline Phosphatase 163 H, Total Protein 7.4, Albumin 4.4, Globulin 3.0, Lipase 113 H, Serum , Qual NEGATIVE 09/12/24 05:36: WBC 18.7 H, RBC 4.37, Hgb 13.5, Hct 42.4, MCV 97.0, MCH 30.9, MCHC 31.8 L, RDW Std Deviation 51.8 H, RDW Coeff of Damon 14.6, Plt Count 309, MPV 10.4, Immature Gran % (Auto) 0.500, Neut % (Auto) 94.8 H, Lymph % (Auto) 2.8 L, Upson % (Auto) 1.7, Eos % (Auto) 0.0, Baso % (Auto) 0.2, Absolute Neuts (auto) 17.7 H, Absolute Lymphs (auto) 0.53 L, Nucleated RBC % 0, Sodium 135, Potassium 4.8, Chloride 104, Carbon Dioxide 15.3 L, Anion Gap 15, BUN 16, Creatinine 0.74,Estim Creat Clear Calc 83.77, Est GFR (MDRD) Non-Af 102, BUN/Creatinine Ratio 21.9 H, Glucose 123 H, Calcium 9.0, Phosphorus 3.7, Total Bilirubin 1.02, AST 28, ALT 19, Alkaline Phosphatase 146 H, Total Protein 7.0, Albumin 4.2, Globulin2.8, Albumin/Globulin Ratio 1.5, Lipase 50, TSH 1.410 Radiography Diagnostic Testing: Radiology Impression Abdomen/Pelvis CT 09/11/24 22:28 IMPRESSION: Medical liver disease. Correlate for possible hepatitis. Reading Location: [place] [address] Physical Exam Narrative Seen and examined Patient denies any fever or chills. Vitals in normal range. Complain of epigastric abdominal pain which is acute on chronic. Denies prior history of acute or chronic pancreatitis, had cholecystectomy. She had ERCP and stent in pancreatic and bile duct. Personal and family history of HOCM status post defibrillator. She stated OCOM more prevalent in female than male in her family. In the past had 1 shock due to lead malfunction but not from cardiac arrest. Physical exam General: Alert, Oriented x3, Cooperative. BMI 21.7 kg/m? HEENT: Atraumatic, PERRLA, EOMI, Normocephalic. Oral: No Gingival or Mucosal Lesions/ Ulcerations Neck: Supple, No JVD, Negative Carotid Bruits Chest wall/Lungs: Air entry diminished in bilateral lung bases. No crepitation/rhonchi Cardiovascular: Regular rate and rhythm, Normal S1,S2, No M/G/R Abdomen: Tenderness present on epigastrium/RUQ. Bowel Sounds Present, Soft, nondistended : No dysuria. No renal angle tenderness. No suprapubic tenderness. Extremities: No edema, Capillary Refill Less than 3 Seconds Skin: No rashes, No breakdown Musculoskeletal: No Tenderness to Palpation of Joints or Extremities Neurological: Cranial nerves II-XII grossly intact, DTR 2+/4. No acute focal neurological deficit. Psych/Mental Status: Normal Affect, Appropriate. Assessment & Plan Assessment/Plan (1) Intractable abdominal pain: (2) Chronic abdominal pain: (3) History of celiac plexus block: (4) Elevated lipase: (5) Leukocytosis: QUALIFIERS: Leukocytosis type: unspecified Qualified Code(s): D72.829 - Elevated white blood cell count, unspecified (6) History of biliary stent insertion: (7) History of insertion of pancreatic stent: PLAN: Plan 43-year-old female admitted with RUQ/epigastric pain, back pain and generalized allover pain. Dr. Dennison has performed celiac block due to pain but that did not improve the pain. No fever or chills. 1. Intractable [id number] abdominal pain after recent failed celiac plexus block - Admit to general medical floor under observation status. GI consulted. Change PPI IV pantoprazole once daily. Exact etiology of pain not clear. 2. Mildly elevated lipase of 113 U/L present on admission - Doubt acute pancreatitis. Leukocytosis 13.7, probably inflammatory to she denies prior history of acute or chronic pancreatitis. Keep n.p.o. except medications and ice chips with sips and hydrate with NS at 150 cc/h x 2L. Repeat lipase tomorrow a.m. 3. History of biliary stent and pancreatic stent with chronic abdominal pain status post recent celiac plexus block procedure: She had ERCP 08/21/2024 which showed single localized biliary stricture in the lower third of CBD. Mid dilatation of pancreatic duct in the genu of PD and pancreatic duct stricture. Choledocholithiasis found and complete removal accomplished by balloon extraction and sphincterotomy. Single pancreatic stone found. Biliary tree wasswept. Cells for cytology obtained, 1 temporary stent into CBD and 1 temporary stent in ventral pancreatic duct. Cells brushing reported no malignant cells. . 4. Recent admission here from July 20, 2024 to July 24, 2024 for treatment of AE CHF with elevated NT pro-BNP II of 6,468 pg/mL present on admission with corresponding CT evidence of pulmonary vascular congestion complicated by mildlyelevated troponin and leukocytosis of 14.3 K with left shift of 1% due to possible superimposed pneumonia - Noted. 5. HOCM status post AICD with family history: Chronic history of dyspnea on exertion, stated had to stop twice on climbing 1 flight of stair but no significant problem on walking 500 feet on level ground. 6. Multiple other comorbidities which include chronic intermittent asthma, migraine headache, generalized anxiety and insomnia: Home medication decussationdone. 7. DVT prophylaxis - Enoxaparin 40 mg sq daily plus SCD's. Charges/Coding Visit Charges Inpatient E&M: 66911 Subs Hosp L2 09/12/24 1129 <Electronically signed by Emerson Sierra MD> Cosigner Signature (if applicable): CC: ~ Signed [facility] Work Phone: [phone] History and physical note Author Sergio Whalen [facility] Note Date/Time September 12, 2024 6:06a m [facility] Medical Records Department [address] [place] [address] H&P Exam - Hospitalist 09/11/24 4268 MR#: [id number] Acct: [id number] Name: MICHELLE MITCHELL Rep #:[id number] : 1980 43 From: Sergio Giles DO PCP: Dr. Dex Wilkinson MD Status:A DM IN Location: MS3 [id number] [facility] - General General Date of Admission: 09/11/24 Date of Service: 09/11/24 Chief Complaint: Abdominal Pain and Nausea. HPI Narrative MICHELLE MITCHELL, is a 43 F with a past medical history of former tobacco abuse (quit ~9 months ago), hypertrophic cardiomyopathy; s/p PPM/AICD (2016), history of asthma; on prn albuterol, history of PTX, history of PE; not currently on current anticoagulation, history of endometrial cancer, history of ovarian cancer; s/p Left oophorectomy and chemotherapy (~2014), history of cervical polypectomy, history of breast cancer; s/p Left mastectomy, history of cholecystectomy, history of appendectomy, IBS, GERD with hiatal hernia; on pantoprazole and sucralfate, history of migraine headaches, generalized anxiety;on alprazolam BID, chronic insomnia; on zolpidem, history of recent colonoscopy ~3 months ago, recent admission here from July 20, 2024 to July 24, 2024 for treatment of AE CHF with elevated NT pro-BNP II of 6,468 pg/mL present on admission with corresponding CT evidence of pulmonary vascular congestion complicated by mildly elevated troponin and leukocytosis of 14.3 K with Left-shift of 1% due to possible superimposed pneumonia and recent celiac plexus block performed in an effort to control severe chronic abdominal pain pain abouta week ago followed by Dr. Dennison of pain management and Dr. Myles of gastroenterology who presents to [facility] ER complaining of worsening abdominal pain. Ms. Mitchell reports her symptoms began ever since her attempted celiac plexus block with patient stating the procedure did not improve her pain control. She states for the past several days her pain has been increasingly more severe. She states she called her physician and they instructed her to come to the ER for further evaluation and treatment. She admits to nausea but she denies vomiting, diarrhea, constipation, fever, chills, chest pain, shortness of breath, dysuria, hematuria, headache or rash. In the ER she was noted to have amildly elevated lipase of 113 U per L present on admission with a mild leukocytosis of 13.7 K also present on admission and a corresponding CT scan of the abdomen and pelvis that revealed bibasilar atelectasis with mildly enlarged heart and hepatomegaly with diffuse hepatic steatosis correlate for possible hepatitis. Status postcholecystectomy. Biliary stent in good position. Biliary air likely iatrogenic. Pancreatic stent in place. No acute pancreatic pathology noted. Unremarkable spleen, adrenal glands and kidneys. No hydronephrosis. Normal bladder. Normal uterus. Distended pelvic veins correlate for pelvic congestion syndrome. No retroperitoneal or pelvic adenopathy. No free air. Status post appendectomy. Multiple diverticula. No acute large bowel findings. Lumbar spine scoliosis with no acute abdominal wallfindings. Medical liver disease. Correlate for possible hepatitis. In addition to all this patient complained of intractable abdominal pain out of proportion to her physical findings with patient initially refusing morphine anddirectly asking for hydromorphone when interacting with the ER physician. She was then admitted to the general medical floor under observation status for possible early acute pancreatitis in the setting of acute-on chronic intractableabdominal pain after recent failed celiac plexus block for a stay that expected to be less than 2 midnights. [facility] Medical History Dilated pancreatic duct Abdominal pain Hypertension Severe pulmonary hypertension History of hypertrophic cardiomyopathy Acute systolic congestive heart failure, NYHA class 3 Leukocytosis Cancer History of steroid therapy Easy bruising Migraine headache History of hiatal hernia History of ulceration History of IBS Abdominal bloating Stomach pain Nausea & vomiting Shortness of breath on exertion Smoker History of echocardiogram Chest pain Pulmonary embolism Endometrial cancer Cervical cancer longterm current use of 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 Ovarian cancer GERD (gastroesophageal reflux disease) Insomnia Anxiety Collapsed lung History of blood clots Asthma Breast cancer Pacemaker ICD (implantable cardioverter-defibrillator) in place Hypertrophic cardiomyopathy Home Medications ?Medication ?Instructions ?Recorded ?Last Taken ?Type alprazolam 0.5 mg tablet 0.5 mg PO BID ANXIETY 09/11/24 History zolpidem 10 mg tablet 10 mg PO QHS SLEEP 11/13/21 09/10/24 History sucralfate 1 gram tablet (Carafate) 1 g PO BIDCM GERD 07/10/24 09/10/24 History metoprolol succinate 25 mg 25 mg PO QDAY HEART 5 09/10/24 History tablet,extended release 24 hr pantoprazole 40 mg tablet,delayed 40 mg PO BID GERD 09/10/24 History release spironolactone 25 mg tablet 25 mg PO DAILY WATER PILL 08/20/24 09/10/24 History Allergy/AdvReac Type Severity Reaction Status Date / Time morphine Allergy Mild Hives Verified 09/11/24 17:21 codeine Allergy Hives Verified 09/11/24 17:21 erythromycin base Allergy PT UNSURE Verified 09/11/24 17:21 OF REACTION Fish Containing Products Allergy Other Verified 09/11/24 17:21 levofloxacin Allergy PT UNSURE Verified 09/11/24 17:21 OF REACTION shellfish derived Allergy Other Verified 09/11/24 17:21 tramadol Allergy Hives Verified 09/11/24 17:21 trimethobenzamide (From Allergy Other Verified 09/11/24 17:21 Tigan) gabapentin (From Neurontin) AdvReac Severe Anaphylaxis Verified 09/11/24 17:21 acetaminophen (From Vicodin) AdvReac Other Verified 09/11/24 17:21 hydrocodone (From Vicodin) AdvReac Other Verified 09/11/24 17:21 metoclopramide (From Reglan) AdvReac Other Verified 09/11/24 17:21 Family History Father Heart disease Idiopathic hypertrophic [...] sore throat or ear pain. Resp: Patient denies shortness of breath or cough. CV: Patient denies chest pain, palpitations, heart racing or lower extremity edema. GI: Patient admits to intractable abdominal pain with nausea as per HPI. : Patient denies dysuria or hematuria. MSK: Patient denies arthralgias or myalgias. Skin: Patient denies rash, abscess, wounds or jaundice. Psych: Patient is tearful and bitterly complaining of abdominal pain but she denies SI or HI. Neuro: Patient denies headache, paresthesias or focal neurologic deficits. Allergy: Patient denies lip swelling, tongue swelling or urticaria. Hematology: Patient denies easy bleeding or easy bruisability. Endocrinology: Patient denies polyuria, polydipsia, polyphagia or heat/cold intolerance. 14 point ROS otherwise negative except for positives noted above HPI. Vital Signs Vital Signs Vital Signs: 09/11/24 17:19 09/11/24 19:19 09/11/24 21:00 Temperature 96.0 F L Temperature Source Oral Pulse Rate 107 H Respiratory Rate 18 Blood Pressure 149/106 H 155/117 H 127/84 H Blood Pressure Mean 120 129 98 Pulse Ox 99 Oxygen Delivery Method Room Air 09/11/24 22:23 09/11/24 23:00 09/11/24 23:03 Temperature 96 F L 98 F 98 F Temperature Source Temporal Oral Oral Pulse Rate 107 H 68 Respiratory Rate 16 16 Blood Pressure 127/84 H 133/90 H Blood Pressure Mean 98 104 Pulse Ox 99 98 Oxygen Delivery Method Room Air Room Air Weight Weight: 126 lb 1.6 oz Body Mass Index (BMI) 21.6 Physical Exam Const alert, oriented x3, no apparent distress, average body habitus and healthy appearing General Appearance: cooperative HEENT normocephalic, head/scalp atraumatic, hearing grossly normal bilaterally and moist oral mucous membranes Eyes PERRL and EOMs intact bilaterally Neck no lymphadenopathy, supple and no JVD Resp normal respiratory effort, no retractions, no use of accessory muscles and clearto auscultation bilaterally Cardio regular rate and regular rhythm GI normal to inspection, nondistended, normoactive bowel sounds and soft to palpation GI Narrative: Patient's abdomen is diffusely tender with voluntary guarding without rebound orrigidity. Extremity normal to inspection, full ROM and no clubbing, cyanosis or edema Skin Skin Narrative: Patient has no evidence of rash, abscess, wounds or jaundice. Neuro oriented x3, CN's II-XII intact bilaterally, moves all extremities and no focal motor deficits Sensorium / Orientation: awake, alert, oriented to person, oriented to place andoriented to time Speech: speech normal Psych Mood & Affect: depressed and anxious Results Medical Records Data Attestation: I reviewed the patient's medical records Lab / Micro Data Attestation: I reviewed the patient's lab results. 09/11/24 22:00 09/11/24 22:00 Labs: Laboratory Results - last 24 hr 09/11/24 19:39: WBC 14.8 H, RBC 4.60, Hgb 14.1, Hct 43.2, MCV 93.9, MCH 30.7, MCHC 32.6, RDW Std Deviation 49.7 H, RDW Coeff of Damon 14.5, Plt Count 338, MPV 11.1, Immature Gran % (Auto) 0.500, Neut % (Auto) 94.8 H, Lymph % (Auto) 3.5 L, Upson % (Auto) 0.7, Eos % (Auto) 0.1, Baso % (Auto) 0.4, Absolute Neuts (auto) 14.0 H, Absolute Lymphs (auto) 0.51 L, Nucleated RBC % 0, Sodium 137, Potassium 4.2, Chloride 104, Carbon Dioxide 18.9 L, Anion Gap 14, BUN 17, Creatinine 0.84,Estim Creat Clear Calc 73.80, Est GFR (MDRD) Non-Af 88, BUN/Creatinine Ratio 20.4 H, Glucose 107 H, Calcium 9.7, Total Bilirubin 0.87, AST 27, ALT 24, Alkaline Phosphatase 164 H, Total Protein 7.5, Albumin 4.4, Globulin 3.1, Albumin/Globulin Ratio 1.4, Lipase 112 H 09/11/24 21:30: Urine Color Yellow, Urine Clarity Sl. Cloudy, Urine pH 7.0, Ur Specific [place] 1.010, Urine Protein 100 H, Urine Glucose (UA) Normal, Urine Ketones Negative, Urine Occult Blood 50 H, Urine Nitrite Negative, Urine Bilirubin Negative, Urine Urobilinogen 1 H, Ur Leukocyte Esterase Negative, Urine RBC 0-5 SEEN, Urine WBC 0-5 SEEN, Ur Squamous Epith Cells 10-25 SEEN, Urine Bacteria 0 SEEN, Urine Mucus 0 SEEN 09/11/24 22:00: WBC 13.7 H, RBC 4.45, Hgb 13.8, Hct 42.0, MCV 94.4, MCH 31.0, MCHC 32.9, RDW Std Deviation 49.9 H, RDW Coeff of Damon 14.6, Plt Count 349, MPV 10.2, Immature Gran % (Auto) 0.600, Neut % (Auto) 94.7 H, Lymph % (Auto) 3.6 L, Upson % (Auto) 0.7, Eos % (Auto) 0.1, Baso % (Auto) 0.3, Absolute Neuts (auto) 13.0 H, Absolute Lymphs (auto) 0.49 L, Nucleated RBC % 0, Sodium 138, Potassium 4.1, Chloride 105, Carbon Dioxide 17.8 L, Anion Gap 15, BUN 19, Creatinine 0.77,Estim Creat Clear Calc 80.51, Est GFR (MDRD) Non-Af 97, BUN/Creatinine Ratio 24.2 H, Glucose 132 H, Lactic Acid 1.6, Calcium 9.4, Total Bilirubin 0.97, Direct Bilirubin 0.50 H, AST 23, ALT 17, Alkaline Phosphatase 163 H, Total Protein 7.4, Albumin 4.4, Globulin 3.0, Lipase 113 H, Serum , Qual NEGATIVE Imaging Radiology Impression Abdomen/Pelvis CT 09/11/24 22:28 IMPRESSION: Medical liver disease. Correlate for possible hepatitis. Reading Location: [place] [address] Assessment & Plan Assessment/Plan (1) Intractable abdominal pain: (2) Chronic abdominal pain: (3) History of celiac plexus block: (4) Elevated lipase: (5) Leukocytosis: QUALIFIERS: Leukocytosis type: unspecified Qualified Code(s): D72.829 - Elevated white blood cell count, unspecified (6) History of biliary stent insertion: (7) History of insertion of pancreatic stent: PLAN: Plan 1. Intractable [id number] abdominal pain after recent failed celiac plexus block - Admit to general medical floor under observation status. Continue IV hydromorphone as needed for severe (level 6-10/10) pain. Give pantoprazole IV twice daily. Finally, we will consult Dr. Myles of gastroenterology to see this patient who is well-known to him for further recommendations with help appreciated in advance. 2. Mildly elevated lipase of 113 U/L present on admission consistent with possible early pancreatitis complicating #1 - Doubt acute pancreatitis. Keep n.p.o. except medications and ice chips with sips and hydrate with NS at 150 cc/h x 2L. Serialize lipase to follow trend. 3. Mild Leukocytosis of 13.7 K also present on admission suspected to be due toacute phase reactant with no signs of infection at this time - check CBC in AM to follow trend. 4. History of biliary stent and pancreatic stent with chronic abdominal pain potentially exacerbated by recent celiac plexus block procedure - Noted. 5. Recent admission here from July 20, 2024 to July 24, 2024 for treatment of AE CHF with elevated NT pro-BNP II of 6,468 pg/mL present on admission with corresponding CT evidence of pulmonary vascular congestion complicated by mildlyelevated troponin and leukocytosis of 14.3 K with left shift of 1% due to possible superimposed pneumonia - Noted. 6. History of PE; not currently on current anticoagulation - Noted. 7. Former tobacco abuse (quit ~9 months ago) - Noted. 8. History of asthma; on prn albuterol - Stable with no current evidence of acute flare. Give nebulizers prn. 9. History of PTX - Noted with no evidence of recurrence at this time. 10. History of endometrial cancer - Noted. 11. History of ovarian cancer; s/p Left oophorectomy - Noted. 12. History of cervical polypectomy - Noted. 13. History of breast cancer; s/p Left mastectomy - Noted with patient currently in remission. 14. History of cholecystectomy - Noted. 14. History of appendectomy - Noted. 16. History of migraine headaches - Noted with no complaints related to this issue at this time. 17. Generalized anxiety; on alprazolam BID - Current therapy to continue. 18. Chronic insomnia; on zolpidem - Resume zolpidem q. HS as before. 19. DVT prophylaxis - Enoxaparin 40 mg sq daily plus SCD's. Total time: Approximately (but not less than) 70 minutes. Charges/Coding Visit Charges OBSV E&M: 37329 Observ/hosp same date L2 09/12/24 0606 <Electronically signed by Sergio de Koby DO> Cosigner Signature (if applicable): CC: Dr. Sergio Umaña DO; Dr. Dex Wilkinson MD~ Signed [facility] Work Phone: [phone] Discharge summary Author Gage Edith [facility] Note Date/Time September 12, 2024 1:01a m [facility] Medical Records Department [address] [place] [address] Emergency Department Summary 09/11/24 MR#: [id number] Acct: [id number] Name: MICHELLE MITCHELL Rep #:[id number] : 1980 43 From: Gage rush DO PCP: Dr. Dex Wilkinson MD Status:A DM IN Location: [facility] [id number] HPI History of Present Illness Chief Complaint: Abd Pain Narrative Narrative: Chief complaint and HPI: Epigastric abdominal pain. 43-year-old female with past medical history of familiar hypertrophic cardiomyopathy status post ICD placement, breast cancer, ovarian cancer presents for evaluation of epigastric abdominal pain. Patient states for several weeks she has been having epigastricabdominal pain. States that she had an appointment recently with Dr. Dennison in which she had a celiac block performed due to pain. She states that this did not improve her pain. She states for the past several days her pain has been more severe. States she called the office and they told her to present to the emergency department. She denies any fever, chills, chest pain, shortness of breath, dysuria, diarrhea, constipation. Does have associated nausea. States she is scheduled to see Dr. Myles on the 09/13. Review of systems: See HPI Medications: As listed on the chart Allergies: As listed on the chart PFSH: Per chart Vital signs: As listed on the chart. Reviewed. Physical exam: Gen: A&O x3, tearful and uncomfortable secondary to pain Head: Normocephalic, atraumatic Eyes: No sclera icterus, conjunctiva clear ENT: Moist mucous membranes Neck: Trachea midline, No JVD CV: RRR, no murmurs, no peripheral edema Resp: Lungs CTA BL, no w/r/c GI: Abd soft, non-distended, tender to palpation in the epigastrium, + voluntaryguarding, no rebound or rigidity : No CVA tenderness, injection site for celiac plexus without infection and healing well Musc: Full ROM, no deformity Skin: Warm, dry Neuro: Alert, oriented, grossly intact, sensation intact Psych: Cooperative [facility] Medical History Hypertension Severe pulmonary hypertension History of hypertrophic cardiomyopathy Acute systolic congestive heart failure, NYHA class 3 Leukocytosis Cancer History of steroid therapy Easy bruising Migraine headache History of hiatal hernia History of ulceration History of IBS Abdominal bloating Stomach pain Nausea & vomiting Shortness of breath on exertion Smoker History of echocardiogram Chest pain Pulmonary embolism Endometrial cancer Cervical cancer longterm current use of 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 Ovarian cancer GERD (gastroesophageal reflux disease) Insomnia Anxiety Collapsed lung History of blood clots Asthma Breast cancer Pacemaker ICD (implantable cardioverter-defibrillator) in place Hypertrophic cardiomyopathy Home Medications ?Medication ?Instructions ?Recorded ?Last Taken ?Type alprazolam 0.5 mg tablet 0.5 mg PO BID ANXIETY 09/11/24 History zolpidem 10 mg tablet 10 mg PO QHS SLEEP 11/13/21 09/10/24 History sucralfate 1 gram tablet (Carafate) 1 g PO BIDCM GERD 07/10/24 09/10/24 History metoprolol succinate 25 mg 25 mg PO QDAY HEART 5 09/10/24 History tablet,extended release 24 hr pantoprazole 40 mg tablet,delayed 40 mg PO BID GERD 09/10/24 History release spironolactone 25 mg tablet 25 mg PO DAILY WATER PILL 08/20/24 09/10/24 History Allergy/AdvReac Type Severity Reaction Status Date / Time morphine Allergy Mild Hives Verified 09/11/24 17:21 codeine Allergy Hives Verified 09/11/24 17:21 erythromycin base Allergy PT UNSURE Verified 09/11/24 17:21 OF REACTION Fish Containing Products Allergy Other Verified 09/11/24 17:21 levofloxacin Allergy PT UNSURE Verified 09/11/24 17:21 OF REACTION shellfish derived Allergy Other Verified 09/11/24 17:21 tramadol Allergy Hives Verified 09/11/24 17:21 trimethobenzamide (From Allergy Other Verified 09/11/24 17:21 Tigan) gabapentin (From Neurontin) AdvReac Severe Anaphylaxis Verified 09/11/24 17:21 acetaminophen (From Vicodin) AdvReac Other Verified 09/11/24 17:21 hydrocodone (From Vicodin) AdvReac Other Verified 09/11/24 17:21 metoclopramide (From Reglan) AdvReac Other Verified 09/11/24 17:21 Family History Father Heart disease Idiopathic hypertrophic [...] Yes EXAM Physical Exam Const Vital Signs: 09/11/24 17:19 09/11/24 19:19 09/11/24 21:00 Temperature 96.0 F L Temperature Source Oral Pulse Rate 107 H Respiratory Rate 18 Blood Pressure 149/106 H 155/117 H 127/84 H Blood Pressure Mean 120 129 98 Pulse Ox 99 Oxygen Delivery Method Room Air 09/11/24 22:23 09/11/24 23:00 09/11/24 23:03 Temperature 96 F L 98 F 98 F Temperature Source Temporal Oral Oral Pulse Rate 107 H 68 Respiratory Rate 16 16 Blood Pressure 127/84 H 133/90 H Blood Pressure Mean 98 104 Pulse Ox 99 98 Oxygen Delivery Method Room Air Room Air MDM MDM MDM Narrative Medical decision making narrative: 43-year-old female with past medical history of familiar hypertrophic cardiomyopathy status post ICD placement, breast cancer, ovarian cancer presentsfor evaluation of epigastric abdominal pain. States she has been having chronicepigastric pain for several weeks. Recently had a celiac plexus block without improvement. On chart review, patient was recently discharged from the hospitalon 08/24/2024 for acute choledocholithiasis. She had an ERCP which showed biliary papillary stenosis and a single localized biliary stricture which was noted in the lower third of the main bile duct and mild dilation of the pancreatic duct. She had a biliary sphincterotomy with stone removal. Stents placed. Dr. Myles is the one who performed the ERCP. On 08/27/2024 she had a MRCP that shows hepatomegaly with hepatic steatosis, pneumobilia in the left hepatic lobe. Unremarkable common bile duct and pancreatic cyst ducts. Mild edema of the pancreatic head possible pancreatitis. She had a gastric emptying study on 08/28 that showed normal gastric emptying. I could not find a procedurenote from her recent celiac plexus block. Differential diagnosis includes but is not limited to pancreatitis, PUD, gastritis, colitis, UTI. Patient has hiveslisted as an allergy to most pain medicine including hydrocodone, tramadol, codeine, morphine. Patient states she can only take Dilaudid. Dilaudid, NS bolus, Zofran ordered for symptoms. Laboratory workup ordered including CT abdomen pelvis. Patient had protocol labs placed and completed in triage, this was personally missed by myself and therefore she had repeat labs performed. Most recent set of labs shows a CBC of 13.7 otherwise unremarkable. BMP withoutsignificant electrolyte abnormality or RADHA. Hepatic panel without transaminitis. Patient has mildly elevated direct bilirubin at 0.5, chronicallyelevated alkaline phosphatase. Lipase elevated at 113. On 08/20/2024 patient had normal lipase. Although this is not 3 times the upper limit, concern is for acute pancreatitis likely from celiac plexus block. Serum negative. UA negative for UTI. CT abdomen pelvis shows hepatomegaly with diffuse hepatic steatosis. Biliary stent in good position. Pancreatic stent in good position. No acute pancreatic pathology. On reevaluation, patient states her pain is mildly improved. She is still very tender on physical exam. Patient will warrant admission for intractable abdominal pain possibly from early pancreatitis. Patient was discussed with the hospitalist who accepted admission. Patient updated of all the results and the plan. She confirmed understanding. Impression 1. Intractable epigastric abdominal pain with history of chronic epigastric abdominal pain 2. Possible pancreatitis 3. Recent celiac plexus block Lab Data Labs: Laboratory Results - last 24 hr 09/11/24 09/11/24 09/11/24 19:39 21:30 22:00 WBC 14.8 H 13.7 H RBC 4.60 4.45 Hgb 14.1 13.8 Hct 43.2 42.0 MCV 93.9 94.4 MCH 30.7 31.0 MCHC 32.6 32.9 RDW Std Deviation 49.7 H 49.9 H RDW Coeff of Damon 14.5 14.6 Plt Count 338 349 MPV 11.1 10.2 Immature Gran % (Auto) 0.500 0.600 Neut % (Auto) 94.8 H 94.7 H Lymph % (Auto) 3.5 L 3.6 L Upson % (Auto) 0.7 0.7 Eos % (Auto) 0.1 0.1 Baso % (Auto) 0.4 0.3 Absolute Neuts (auto) 14.0 H 13.0 H Absolute Lymphs (auto) 0.51 L 0.49 L Nucleated RBC % 0 0 Sodium 137 138 Potassium 4.2 4.1 Chloride 104 105 Carbon Dioxide 18.9 L 17.8 L Anion Gap 14 15 BUN 17 19 Creatinine 0.84 0.77 Estim Creat Clear Calc 73.80 80.51 Est GFR (MDRD) Non-Af 88 97 BUN/Creatinine Ratio 20.4 H 24.2 H Glucose 107 H 132 H Lactic Acid 1.6 Calcium 9.7 9.4 Total Bilirubin 0.87 0.97 Direct Bilirubin 0.50 H AST 27 23 ALT 24 17 Alkaline Phosphatase 164 H 163 H Total Protein 7.5 7.4 Albumin 4.4 4.4 Globulin 3.1 3.0 Albumin/Globulin Ratio 1.4 Lipase 112 H 113 H Serum , Qual NEGATIVE Urine Color Yellow Urine Clarity Sl. Cloudy Urine pH 7.0 Ur Specific Engadine 1.010 Urine Protein 100 H Urine Glucose (UA) Normal Urine Ketones Negative Urine Occult Blood 50 H Urine Nitrite Negative Urine Bilirubin Negative Urine Urobilinogen 1 H Ur Leukocyte Esterase Negative Urine RBC 0-5 SEEN Urine WBC 0-5 SEEN Ur Squamous Epith Cells 10-25 SEEN Urine Bacteria 0 SEEN Urine Mucus 0 SEEN Radiography Diagnostic Testing: Clinical Impression(s) from Imaging Studies Abdomen/Pelvis CT 09/11/24 22:28 IMPRESSION: Medical liver disease. Correlate for possible hepatitis. Reading Location: [place] [address] Discharge Plan Disposition Disposition: Acute Care Hospital [facility] Discharge Date/Time: 09/12/24 00:11 What to do if you have Problems For any increased pain, shortness of breath, bleeding, nausea or vomiting, chestpain, or any unexpected problems, contact your Primary Care Provider. Call [facility] ([phone]) or report to the closest Emergency Room. Call 911 if necessary. 09/12/24 0101 <Electronically signed by Gage Sharma DO> Cosigner Signature (if applicable): CC: Dr. Dex Wilkinson MD ~ Signed [facility] Work Phone: 1(650) 308-113607-01-2025 Radiology Diagnostic study [facility]06-17-2025 Nuclear medicine Diagnostic study [facility]06-13-2025 Discharge summary Author Taylor [facility] Note Date/Time August 24, 2024 3:36 pm [facility] Medical Records Department [address] [place] [address] Instructions for Home/Discharge Instructions 08/24/24 1312 MR#: [id number] Acct: [id number] Name: MICHELLE MITCHELL Rep #:[id number] : 1980 43 From: Taylor Tejeda [...] be discussed in further detail at your follow- up appointment, if applicable. Discharge Plan Admission Admit [...] [Primary Care Provider] - Within 1 Week FriendQuang DO [Med Staff - Active Staff] - Within 2 Weeks Disposition Disposition (needs filled in before D/C Order can be placed): Home, Self Care 08/24/24 1312<Electronically signed by Taylor Tejeda MD>Taylor Tejeda MD CC: Dr. Lopez Larios DO; Dr. Dex Wilkinson MD ~ Signed [facility] Work Phone: 1(416) 332-207806-13-2025 [facility]06-12-2025 Progress note Author Quang Myles [facility] Note Date/Time August 23, 2024 8:09 pm [facility] Medical Records Department [address] [place] [address] Progress Note 08/23/242003 MR#: [id number] Acct: [id number] Name: MICHELLE MITCHELL Rep #:[id number] : 1980 43 From: Quang Myles DO PCP: Dr. Dex Wilkinson MD Status:A DM IN Location: [facility] [id number] Progress Note Patient saying that she [...] is a 43-year-old female who presented to [facility] ED on 08/20/2024 with worsening RUQ abdominal pain. Worsening RUQ abdominal pain with elevated LFTs ? Admit under inpatient status to PCU. GI consulted. Presented with worsening abdominal pain and uptrending LFTs. Prior CT abdomen pelvis showed hepatomegalywith double duct sign. Liver ultrasound on this admission again showed hepatomegaly with pancreatic duct dilation. 08/23/2024-Findings: The bottom bleacher film was normal. The esophagus was successfully [...] by Quang Myles DO on 08/23/24 at 2008 Visit Charges Inpatient E&M: 15043 Subs Hosp 08/23/242007 <Electronically signed by Quang arciniega DO> Date _ Quang Myles DO Cosigner Signature (if applicable): Date cc: ~* Signed [facility] Work Phone: 1(714) 882-252006-12-2025 Radiology Diagnostic study [facility]06-12-2025 Progress note Author Taylorleonides Tejeda [facility] Note Date/Time August 23, 2024 5:29 pm [facility] Medical Records Department [address] [place] [address] Progress Note 08/23/245 MR#: [id number] Acct: [id number] Name: MICHELLE MITCHELL Rep #:[id number] : 1980 43 From: Taylor Tejeda MD PCP: Dr. eDx Wilkinson MD Status:A DM IN Location: [place] [address]- 1 Subjective Subjective Patient seen and examined. [...] (Auto) 80.5 H, Lymph % (Auto) 10.7 L,Upson % (Auto) 7.0, Eos % (Auto) 1.0, [...] Has ICD in place. Follows with [facility] cardiology. * 2D echo showed EF of 35% with mild concentric left ventricular hypertrophy and global ventricular hypokinesis with stage II diastolic dysfunction. * Chest x-ray showed no evidence of volume overload. On spironolactone and metoprolol #Anxiety and insomnia: On alprazolam and zolpidem GERD: PPI DVT prophylaxis: Lovenox Charges/Coding Visit Charges Inpatient E&M: 00849 Subs Hosp L2 08/23/24 1729 <Electronically signed by Taylor Tejeda MD> Taylor Tejeda MD Cosigner Signature (if applicable): CC: ~ Signed [facility] Work Phone: 1(331) 178-874606-12-2025 Radiology Diagnostic study [facility]06-11-2025 Progress note Author Taylor [facility] Note Date/Time August 22, 2024 5:59 pm [facility] Medical Records Department [address] [place] [address] Progress Note 08/22/24 1211 MR#: [id number] Acct: [id number] Name: MICHELLE MITCHELL Rep #:[id number] : 1980 43 From: Taylor Tejeda MD PCP: Dr. Dex Wilkinson MD Status:A DM IN Location: [place] [address] Subjective Subjective Patient seen and examined. She [...] (Auto) 77.7 H, Lymph % (Auto) 12.5 L,Upson % (Auto) 8.0, Eos % (Auto) 0.8, [...] 08/21/24 18:30 IMPRESSION: As above. Reading Location: [place] [address] Physical Exam Const alert and oriented x3 [...] Has ICD in place. Follows with [facility] cardiology. * 2D echo showed EF of 35% with mild concentric left ventricular hypertrophy and global ventricular hypokinesis with stage II diastolic dysfunction. * Chest x-ray showed no evidence of volume overload. On spironolactone and metoprolol #Anxiety and insomnia: On alprazolam and zolpidem GERD: PPI DVT prophylaxis: Lovenox Charges/Coding Visit Charges Inpatient E&M: 91575 Subs Hosp L2 08/22/24 6120 <Electronically signed by Taylor Tejeda MD> Taylor Tejeda MD Cosigner Signature (if applicable): CC: ~ Signed [facility] Work Phone: 1(992) 141-372606-11-2025 Consult note Author Tony Dumont [facility] Note Date/Time August 22, 2024 6:53 am [facility] Medical Records Department [address] [place] [address] Anesthesia Postop Eval II 08/22/24 0653 MR#: [id number] Acct: [id number] Name: MICHELLE MITCHELL Rep #:[id number] : 1980 43 From: Tony Dumont MD PCP: Dr. Dex Wilkinson MD Status:A DM IN Y Race: C Location: [place] [address] 2-1 Anesthesia Postop Eval I Sum Postop [...] Pain Level: 0 nausea: No Vomiting: No 08/22/2453 <Electronically signed by Tony Dumont MD > Date _ Tony Dumont MD Cosigner Signature: Date CC: ~ Signed [facility] Work Phone: 1(815) 590-670906-10-2025 Consult note Author Tony Dumont [facility] Note Date/Time August 21, 2024 7:28 pm [facility] Medical Records Department [address] [place] [address] Anesthesia Postop Eval I 08/21/241926 MR#: [id number] Acct: [id number] Name: MICHELLE MITCHELL Rep #:[id number] : 1980 43 From: Tony Dumont MD PCP: Dr. Dex Wilkinson MD Status:A DM IN Y Race: C Location: [place] [address] Anesthesia: Postop Eval I Current Vital Signs [...] MD > Date _ Tony Dumont MD [facility] Signature: Date CC: ~ Signed [facility] Work Phone: 1(995) 990-708506-10-2025 Radiology Diagnostic study [facility]06-10-2025 Progress note Author Taylor Tejeda [facility] Note Date/Time August 21, 2024 5:30 pm [facility] Medical Records Department [address] [facility] [place] [address] Progress Note 08/21/241717 MR#: [id number] Acct: [id number] Name: MICHELLE MITCHELL Rep #:[id number] : 1980 43 From: Taylor Tejeda MD PCP: Dr. Dex Wilkinson MD Status:A DM IN Location: [place] [address] Subjective Subjective Patient seen and examined. She [...] Has ICD in place. Follows with [facility] cardiology. * 2D echo showed EF of 35% with mild concentric left ventricular hypertrophy and global ventricular hypokinesis with stage II diastolic dysfunction. * Chest x-ray showed no evidence of volume overload. On spironolactone and metoprolol #Anxiety and insomnia: On alprazolam and zolpidem GERD: PPI DVT prophylaxis: Lovenox Charges/Coding Visit Charges Inpatient E&M: 04494 Subs Hosp L3 08/21/24 1730 <Electronically signed by Taylor Tejeda MD> Taylor Tejeda MD Cosigner Signature (if applicable): CC: ~ Signed [facility] Work Phone: 1(572) 355-892206-10-2025 Progress note Author Quang Friend [facility] Note Date/Time August 21, 2024 5:27 pm [facility] Medical Records Department [address] [place] [address] Progress Note 08/21/241723 MR#: [id number] Acct: [id number] Name: MICHELLE MITCHELL Rep #:[id number] : 1980 43 From: Quang Myles DO PCP: Dr. Dex Wilkinson MD Status:A DM IN Location: [place] [address] Progress Note Patient still complains of the [...] ASA of 3. Visit Charges Inpatient E&M: 40812 Subs Hosp L3 08/21/24 1727 <Electronically signed by Quang Myles DO> Quang Myles DO Cosigner Signature (if applicable): CC: ~ Signed [facility] Work Phone: 1(248) 368-159406-10-2025 Procedure [facility] 08-21-2024 Consult note Author Tony Dumont [facility] Note Date/Time August 21, 2024 4:55 pm [facility] Medical Records Department [address] [place] [address] Pre-Anesthesia Evaluation 08/21/24 1654 MR#: [id number] Acct: [id number] Name: MICHELLE MITCHELL Rep #:[id number] : 1980 43 From: Tony Dumont MD PCP: Dr. Dex Wilkinson MD Status:A DM IN Y Race: C Location: [place] [address] 2-1 ASA Classification* ASA Classification ASA Classification: [...] Procedure(s): ERCP Anesthesia History Anesthesia History - guard chief: Anesthesia History - guard chief Hx Hospitalization Yes: 05/2024 ABSCESS TURNED 07/10/24 [...] take am of surgery PONV PONV - guard chief: PONV - guard chief Female HX of Motion Sickness HX of N/V After Surgery Non-Smoker Duration of Surgery greater than 60 minutes Number of Risk Factors PONV Score Height & Weight Height & Weight: Anesthesia: Height & Weight Height 5 ft 4 in 08/21/24 16:39 Weight: 57.4 kg 08/21/24 16:39 Body Mass Index (BMI) 21.7 08/21/24 16:39 Respiratory Assessment Respiratory Assessment - guard chief: Respiratory Tract Infection Hx - guard chief Hx Respiratory Tract Infection No 08/20/24 21:50 STOP Sleep Apnea STOP Sleep Apnea - guard chief: STOP Sleep Apnea - guard chief Hx Hypertension No 08/20/24 18:53 Hx Sleep [...] Tobacco Use History Tobacco Use History - guard chief: Tobacco Use History - guard chief Tobacco Use Smoking Status Current every day smoker 08/20/24 18:53 Hx Tobacco Use Yes 08/20/24 18:53 Years Smoking Packs Smoked per Day Smoking Cessation Date was within the last 15 years Hx Smoking Cessation Date Hx Smoking Cessation No 08/20/24 18:53 Counseling Hematologic Medial History Hematologic Hx - guard chief: 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 Hx of Blood Transfusion No 08/20/24 18:53 [...] confused, unrespo /Reproduction History /Reproductive History - guard chief: /Reproductive Hx- guard chief Hx Now No 08/21/24 08:33 Gestational Age [...] mls @ 15 mls/hr 08/20/24 19:01 IV .[id number] PRN Saline Flush Sodium Chloride 250 mls @ 15 mls/hr 08/20/24 19:01 IV .[id number] PRN Additional IVPB Infusion Lactated Ringer's 1,000 mls @ 15 mls/hr 08/21/24 16:45 08/21/24 16:47 IV 15 mls/hr .Q48H PIA Administration Iopamidol 0 ml 08/21/24 08:45 Contrast Allergy Safety Check IV X1 PIA Meloxicam 15 mg 08/21/24 10:00 08/21/24 11:17 Meloxicam 15 Mg Tablet PO Not Given DAILY [facility] Metoprolol Succinate 25 mg 08/21/24 10:00 08/21/24 11:18 Metoprolol(Xl)Succ 25 Mg Tablet PO Not Given DAILY [facility] Protocol Ondansetron HCl 4 mg 08/20/24 19:00 Ondansetron 4 Mg/2 Ml Vial IV Q8H PRN PRN NAUSEA/VOMITING Oxycodone HCl 5 mg 08/20/24 19:00 08/21/24 06:37 Oxycodone 5 Mg Tablet PO 5 mg Q4H PRN PRN Administration Pain Score 4-10 Pantoprazole Sodium 40 mg 08/20/24 22:00 08/21/24 11:18 Pantoprazole Sodium 40 Mg Tablet PO Not Given BID PIA Scopolamine HBr 1 patch 08/21/24 10:00 08/21/24 13:23 Scopolamine 1mg/72hr Patch TD Not Given Q3D [facility] Sodium Chloride 10 - 40 ml 08/20/24 19:01 08/21/24 09:14 0.9% Saline Lock 10 Ml Syringe IV 10 ml UD PRN Administration SALINE FLUSH Spironolactone 25 mg 08/21/24 10:00 08/21/24 11:17 Spironolactone 25 Mg Tablet PO Not Given DAILY [facility] Protocol Sucralfate 1 gm 08/21/24 08:00 08/21/24 09:13 Sucralfate 1 Gm Tablet PO Not Given [facility] Zolpidem Tartrate 10 mg 08/20/24 22:00 08/20/24 [...] pain Pulmonary embolism 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 08/21/24 1655 <Electronically signed by Tony Dumont MD > Date _ Tony Dumont MD Cosigner Signature: Date CC: ~ Signed [facility] Work Phone: 1(572) 940-331406-10-2025 Discharge summary Author [facility] Note Date/Time August 21, 2024 12:2 9am [facility] Medical Records Department [address] [place] [address] Emergency Department Summary 08/20/24 MR#: [id number] Acct: [id number] Name: MICHELLE MITCHELL Rep #:[id number] : 1980 43 From: Simona Jama PCP: Dr. Dex Wilkinson MD Status:A DM IN Location: [address] History of Present Illness Chief Complaint: [...] sphincter of Oddi syndrome, choledocholithiasis or ampullarylesion. 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 Reading Location: [facility] Chest X-Ray 08/20/24 16:00 IMPRESSION: CARDIOMEGALY. NO ACUTE FINDINGS. Reading Location: [id number] Discharge Plan Dx/Rx/DC Orders Clinical Impression: Dilated pancreatic duct, Elevated liver enzymes, Abdominal pain, HFrEF (heart failure with reduced ejection fraction) Disposition Disposition: Acute Care [facility] Discharge Date/Time: 08/20/24 18:38 What to do if you have Problems For any increased pain, shortness of breath, bleeding, nausea or vomiting, chestpain, or any unexpected problems, contact your Primary Care Provider. Call [facility] ([phone]) or report to the closest Emergency Room. Call 911 if necessary. 08/21/24 0029 <Electronically signed by Simona Fernandez DO> Cosigner Signature (if applicable): CC: Dr. Dex Wilkinson MD ~ Signed [facility] Work Phone: 1(978) 987-988506-09-2025 History and physical note Author Lopez Larios [facility] Note Date/Time August 20, 2024 9:41p m [facility] Medical Records Department [address] [place] [address] H&P Exam - Hospitalist 08/20/24 1747 MR#: [id number] Acct: [id number] Name: MICHELLE MITCHELL Rep #:[id number] : 1980 43 From: Lopez adame DO PCP: Dr. Dex Wilkinson MD Status:A DM IN Location: [place] [address] HPI - General General Date of Admission: 08/20/24 Date of Service: 08/20/24 Chief Complaint: Worsening RUQ abdominal pain HPI Narrative MICHELLE MITCHELL, is a 43 F who presented to [facility] ED on 08/20/2024 with worsening RUQ abdominal [...] acute concerns at this time. [facility] Medical History Hypertension Severe pulmonary hypertension History of hypertrophic cardiomyopathy Acute systolic congestive heart failure, NYHA class 3 Leukocytosis Cancer History of steroid therapy Easy bruising Migraine headache History of hiatal hernia History of ulceration History of IBS Abdominal bloating Stomach pain Nausea & vomiting Shortness of breath on exertion Smoker History of echocardiogram Chest pain Pulmonary embolism Endometrial cancer Cervical cancer longterm current use of 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 Ovarian cancer GERD [...] 83.3 H, Lymph % (Auto) 10.9 L, Upson % (Auto) 4.6, Eos % (Auto) 0.2, [...] Clarity Clear, Urine pH 6.5, Ur Specific Engadine 1.010, Urine Protein 15 H, Urine Glucose [...] duct dilation to 6.5 mm. Reading Location: [id number] Chest X-Ray 08/20/24 16:00 IMPRESSION: CARDIOMEGALY. NO ACUTE FINDINGS. Reading Location: [id number] Assessment & Plan Assessment/Plan (1) Abdominal pain: QUALIFIERS: Abdominal location: unspecified location Qualified Code(s): R10.9 - Unspecified abdominal pain (2) Elevated liver enzymes: (3) Dilated pancreatic duct: PLAN: Plan Patient is a 43-year-old female who presented to [facility] ED on 08/20/2024 with worsening RUQ abdominal [...] familial hypertrophic cardiomyopathy, hypertension ? Follows with [place] cardiology. Most recent echo on 07/21 showed [...] 75 minutes. Charges/Coding Visit Charges Inpatient E&M: 78827 Init Hosp L3 08/20/24 2141 <Electronically signed by Lopez Larios DO> Cosigner Signature (if applicable): CC: Dr. Lopez Larios DO; Dr. Dex Wilkinson MD~ Signed [facility] Work Phone: 1(133) 262-718106-09-2025 Radiology Diagnostic study [facility]06-09-2025 Radiology Diagnostic [facility]06-04-2025 History of Present illness Narrative* Radu Kay MD - 08/15/2024 11:00 AM EDT Advanced [facility] Failure [facility] Note CHIEF COMPLAINT: No chief complaint on file. Primary Care Physician: No primary care provider on file. Attic Fans MechanicCamelia Bishop ([facility]) GI- Friend HISTORY OF PRESENT ILLNESS: Michelle Mitchell is a 43 y.o. female with hypertrophic cardiomyopathy who presents as a new patient Briefly she was apparently diagnosed with hypertrophic cardiomyopathy after an episode of syncope underwent ICD placement in 2006 with lead revision in 2008, and then explant of the entire device with reimplantation in 2016, she was followed with a local metal crafts teacher Dr Bishop (was following at [facility] she moved to [place] in 2021), notably she was admitted with chest pressure to [facility] in 2014 and 2016 felt to [...] showing possible vegetation and was transferred to [facility], her blood cultures were negative and [...] has. She is currently working as a [employer], Other medical problems include chronic chest pain, distant history of PE in 2017 she has been off anticoagulation since 2021 until recently, No dizziness, syncope, currently dyspnea with 1 flight of stairs, she get short of breath at her job now. No edema but does have cough and bloating She has [id number] smoking history no alcohol no illicits. She takes Trintellis for anger issues,was on chantix in the past without problems but it was taken off the market. ICD issues : no shocks, 5 years of battery, [employer] single lead Monitors/restricts salt/fluid : not much [...] edema LABS: RESUFAST(CHOL:1,HDL:1,LDLF:1,TRI): No results found for: CHOL, HDL, LDLF, [...] BUN, CREATININE, EGFR, MG in the last 72560 hours.No results for input(s): ALBUMIN, ALKPHOS, ALT, AST, BILITOT, LIPASE in the last 93199 hours. No lab exists for component: CA CBC:No results for input(s): WBC, HGB, HCT, PLT, MCV in the last 30421 hours. HEME/ENDO:No results for input(s): FERRITIN, IRONSAT, TSH, HGBA1C in the last 95119 hours. CARDIAC: No results for input(s): LDH, CKMB, TROPHS, BNP in the last 63878 hours. No lab exists for component: CK, CKMBPNo results for input(s): CHOL, LDLF, HDL, TRIG inthe last 26760 hours. No results found for: BNP DIAGNOSTIC [...] the prior echocardiographic exam performed on 04/25/2021 ([facility]). Mobile echodensity reported today as above. [...] lead vegetation this was extensively evaluated at [facility] appears to be due to fibrin [...] Center 08/15/2024 11:00 AM Radu Kay MD [id number] [place] Radu De Dios IV, MD Heart [...] complaints of headaches. Hospitalizations: July 2024 at [facility] for ADHF. documented in this encounterPremier Health Work Phone: 1(697) 562-184806-04-2025 Instructions* Patient Instructions* Rdau Kay MD - 08/15/2024 11:00 AM EDT To reach Dr. Kay's office please call [phone] (Gudelia). . Call [phone] to schedule an appointment. You may also contact the HF RNs at [email or web address] Thank you for coming to your appointment today. If you have any questions or need cardiac medication refills, please call the Heart Failure Office at [phone] option 6. Start spironolactone 25mg and jardiance 10mg (if affordable) Get labwork in the next 2-6 weeks (we can order if not ordered by your other doctors) Talk to Dr Wilkinson about Chantix in the future Try to get genetic testing information from your family Return in 3 months documented in this encounterPremier Health Work Phone: 1(897) 244-834805-31-2025 Radiology Diagnostic study [facility]05-30-2025 Telephone encounter Note* Telephone Encounter - Suman [...] reports she had attempted to contact her mobile equipment mechanic as she has multiple GI issues, but was unable to get a response. Denies recent injury, fever, dysuria, urinary retention, incontinence, weakness, numbness, or hematuria. R: Patient instructed to proceed to evaluation of severe, sudden onset pain. Patient verbalizes understanding, and states she will proceed to [place] [facility], and that her SO will drive her. Reason for Disposition Patient sounds very sick or weak to the triager Protocols used: Back [id number]-YH [facility] [id number] Miscellaneous Notes* Telephone Encounter - Suman Cadena [...] reports she had attempted to contact her mobile equipment mechanic as she has multiple GI issues, but was unable to get a response. Denies recent injury, fever, dysuria, urinary retention, incontinence, weakness, numbness, or hematuria. R: Patient instructed to proceed to evaluation of severe, sudden onset pain. Patient verbalizes understanding, and states she will proceed to [place] [facility], and that her SO will drive her. Reason for Disposition Patient sounds very sick or weak to the triager Protocols used: Back Hibm-HFRLM-FO documented in this [id number] Evaluation note* Diagnosis Onset Date Resolution Status Admit Date Diarrhea acute August 08, 2024 8:24am Pulmonary [...] disease) inactive August 20, 2024 5 :47pm Elevated lipase acute September 11, 2024 11:43pm History of biliary stent insertion acute September 11, 2024 1 1:43pm History of celiac plexus block acute September 11, 2024 11:43pm History of insertion of pancreatic stent acute September 11, 2024 11:43pm Intractable abdominal pain acute September 11, 2024 11:43pm Chronic abdominal pain chronic Ju ly 2024 11:43pm Leukocytosis inactive September 11 11:43pm Abnormal uterine bleeding acute September 18, 2024 12:47pm S/P ERCP acute September 18, 2024 12:47pm Chronic abdominal pain chronic Ju ly 2024 12:47pm HFrEF (heart failure with reduced ejection fraction) acute October 03, 2024 11:25am ICD (implantable cardioverter-defibrillator) in place chronic October 03, 2024 11:25am HFrEF (heart failure with reduced ejection fraction) acute Augus t 2024 3:17pm Pulmonary hypertension acute Au guerita 2024 3:17pm ICD (implantable cardioverter-defibrillator) in place chronic October 17, 2024 3:17pm Choledocholithiasis acute Septe mber 2024 12:12pm History of biliary stent insertion acute November 23, 2024 12:12pm S/P ERCP acute November 12:12pm [facility] Work Phone: 1(974) 503-666305-19-2025 History of Present illness Narrative* Quynh Chang, [facility] - 07/30/2024 7:23 AM EDT TRANSITION CARE [...] oz) Patient was sent a message via [employer] including the link to the [facility] Heart Failure education video: No sent 07/27/24 Patient unable to be reached after unsuccessful outreach attempt(s). No further attempts to contactpatient will be made. SUMMARY: -Pt discharged from [facility] on 07/27/24. -Medication review not done History of Present Illness: The following content has been copied and pasted from patient's discharge summary. If discharge summary unavailable, After Visit Summary or last pertinent inpatient notes are copied and pasted. 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 [facility] [place] [address] [address] [facility] [phone] [place] [address] [facility] [address] [place] [address] Estimated Creatinine Clearance: 70.3 mL/min (based on [...] 30, 2024 7:24 AM documented in this encounterThe [facility]05-19-2025 NoteHNO ID: [id number] Author: QUYNH CHANG RPh Service: ? Author [...] oz) Patient was sent a message via [employer] including the link to the [facility] Heart Failure education video: No sent 07/27/24 Patient unable to be reached after unsuccessful outreach attempt(s). No further attempts to contact patient will be made. SUMMARY: -Pt discharged from [facility] on 07/27/24. -Medication review not done History of Present Illness: The following content has been copied and pasted from patient's discharge summary. If discharge summary unavailable, After Visit Summary or last pertinent inpatient notes are copied and pasted. 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 Preferred pharmacy: [facility] [address] [place], [place] [id number] - [address] [facility] - [phone] [place] [address] [facility] [address] [place] [address] Estimated Creatinine Clearance: 70.3 mL/min (based on [...] Quynh Chang RPh July 30, 2024 7:24 [facility]05-19-2025 NotePatient Outreach (PHRXRF) MICHELLE MITCHELL ([id number]) 1980 F Date Time Provider Department 07/30/24 [...] oz) Patient was sent a message via [employer] including the link to the [facility] Heart Failure education video: No sent 07/27/24 Patient unable to be reached after unsuccessful outreach attempt(s). No further attempts to contact patient will be made. SUMMARY: -Pt discharged from [facility] on 07/27/24. -Medication review not done History of Present Illness: The following content has been copied and pasted from patient's discharge summary. If discharge summary unavailable, After Visit Summary or last pertinent inpatient notes are copied and pasted. 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 Medication Reconciliation: Legend: Stopped, New, Changed, Added [...] tablet by mouth once daily. [facility] Per discharge summary: Start toprol XL [address] 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 Preferred pharmacy: [facility] [place] [id number] - [address] [facility] [phone] [place], [place] [id number] [facility] [address] [place] [address] Estimated Creatinine Clearance: 70.3 mL/min (based on SCr of 0.88 mg/dL). eGFR (no units) Date Value 03/20/2019 >60 Estimated Glomerular Filtration Rate (mL/min/1.73m?) Date Value 07/27/2024 83 eGFR- (no units) Date Value 04/26/2021 >60 Additional follow up: Next 5 Appointments None Interventions Made: None Pharmacist Recommendations Made None Care Coordination: None at this time Time spent on patient: 15-30 minutes Quynh WyattKala maloney July 30, 2024 7:24 AM Allergies As [...] redness and itching a (more content not included)...[facility]05-16-2025 NoteHNO ID: [id number] Author: IRLANDA MOORE RPh Service: Pharmacy Author [...] RPh July 27, 2024 10:38 AM Pager: [phone] Medication List START taking these medications metoprolol [...] Your Medications These medications were sent to [facility] [address] [place] [id number] - [address] [place] [address] - [phone] [place], [place] [id number] metoprolol succinate ER 25 mg 24 hr tabletHocking Valley Community Hospital05-15-2025 NoteHNO ID: [id number] Author: TEJAL RODRÍGUEZ PA-C Service: Cardiovascular Medicine Author Type: Physician Provider Relations Rep Type: Progress Notes Filed: 07/26/2024 15:35 Note Text: [facility] CARDI[facility]ULAR [facility]ICINE PROGRESS NOTE Michelle Mitchell [id number] PRIMARY SERVICE: Imaging, Hvi TIME OF SERVICE: [...] BNP: 3,054. Device check showed <0.1% v-paced. MIKCI 07/25: showed a thin, filamentous echodensity on the RV lead in the right atrium, measuring ~1.4 cm which appears new from [facility]I o (more content not included)...[facility]05-14-2025 NoteHNO ID: [id number] Author: SHEILA SPICER, RN Service: Care Management Author Type: Registered Nurse Type: Care Mgt Initial Assessment Filed: 07/25/2024 14:56 Note Text: CARE MANAGEMENT: ASSESSMENT AND DISCHARGE PLAN SERVICE DATE: July 25, 2024 SERVICE TIME: 2:50 PM PCP: Dex Wilkinson MD Primary Contact: Extended Emergency Contact Information Primary Emergency Contact: Babar Mitchell Address: [address] [place] [address] Mobile Relation: Spouse Admission Status: Inpatient Insurance Provider: [employer] PPO Discharge Planning requested by: Per Department Practice Potential Transition Plans Home Advance Directives Current Advance Directive: None Laser/Electro Optics Technician Attempted to Assist with AD Completion: Yes [...] Patient Goal(s): Be able to go home Claridge of Choice Explained: Claridge of Choice Given: No Reason Not Given: [...] Mitchell DATE: July 25, 2024 TIME: 2:50 [facility]05-14-2025 Nurse Note* Dominguez Obregon RN - [...] By Dominguez Obregon RN In Department: CARDIOLOGY [facility]05-14-2025 Nurse Note* Dominguez Obregon RN - 07/25/2024 [...] RN In Department: CARDIOLOGY documented in this encounterThe [facility] System05-14-2025 NoteHNO ID: [id number] Author: MAHNAZ RUFF, ? Service: Pharmacy Author Type: Benzol Operator Type: Plan of Care Filed: 07/25/2024 10:00 [...] questions, please reach out to your medication manager access. Thank you (Prices may vary at different pharmacy locations, this is the cost at [facility]05-14-2025 NoteHNO ID: [id number] Author: MAHNAZ RUFF, ? Service: Pharmacy Author Type: Benzol Operator Type: Plan of Care Filed: 07/25/2024 09:57 Note Text: Insurance investigation completed Patient has active prescription insurance: Yes - Patient's insurance is in-network with [facility] Insurance loaded into Rolfe: Yes Test claim was completed to verify insurance is active: Successful Any questions, please reach out to your medication manager access.[facility]05-13-2025 Discharge summary [facility] Medical Records Department [address] [facility] [place] [address] Discharge Summary 07/24/24 0839 MR#: [id number] Acct: [id number] Name: MICHELLE MITCHELL Rep #:[id number] 8 : 1980 43 From: Willian Ovalles DO PCP: Dr. Dex Wilkinson MD Status:A DM IN Location: [place] [address] Providers Date of Admission: 07/21/24 Primary Care Physician: Dr. Dex Wilkinson MD Consultations 07/21/24 00:48 Consult: Cardiology Routine Consulting Provider: [facility] Reason for Consult: AE CHF, Elevated Troponin and Near Syncope with Hypertrophic CM EMERGENT Consult: No MD Notified: Yes Date Notified: 07/21/24 Time Notified: 06:52 Method of Notification: Text Method of Consult:: In-Person 07/23/24 08:42 Consult: Gastroenterology Routine Consulting Provider: [facility] Reason for Consult: gastritis. clearance for [...] on following up with Dr. Aguilar at [facility], CTS at [facility] that specialized in cardiac transplantation. She [...] her sister. Patient has been accepted to [facility], awaiting on bed availablily. Medications at [...] heart transplant. So that is the reason [facility] was selected as a facility for [...] Care Hospital Charges/Coding Visit Charges Inpatient E&M: 58753 Disch Hosp >30min 07/24/24 0843 Cosigner Signature (if applicable): CC: Dr. Willian Ovalles DO; Dr. Dex Wilkinson MD~ Signed [facility]05-13-2025 [facility]-12-2025 Progress note Author Willian Ovalles [facility] Note Date/Time July 23, 2024 12:31 pm [facility] Medical Records Department [address] [place] [address] Progress Note - Hospitalist 07/23/24 0749 MR#: [id number] Acct: [id number] Name: ALBADELMIMICHELLE Rep #:[id number] 2 : 1980 43 From: Willian Ovalles DO PCP: Dr. Dex Wilkinson MD Status:A DM IN Location: [place] [address]- Reason for Visit Reason for Visit: Diagnoses [...] 93.3 H, Lymph % (Auto) 2.5 L, Upson % (Auto) 2.5, Eos % (Auto) 0.0, [...] (atrial side). Previously noted in 2023. FRANCO lCay, who recommend blood cultures to rule out [...] on following up with Dr. Aguilar at [facility], CTS at [facility] that specialized in cardiac transplantation. She [...] her sister. Patient has been accepted to [facility], awaiting on bed availablily. Charges/Coding Visit Charges Inpatient E&M: 13748 [facility] Hosp L3 07/23/24 1231 <Electronically signed by Willian Ovalles DO> Cosigner Signature (if applicable): CC: ~ Signed [facility] Work Phone: 1(522) 468-174705-12-2025 Progress note Author Mercy Bishop [facility] Note Date/Time July 23, 2024 11:05 am [facility] Medical Records Department [address] [place] [address] Progress Note - Cardiology 07/23/24 0826 MR#: [id number] Acct: [id number] Name: MICHELLE MITCHELL Rep #:[id number] 2 : 1980 43 From: Mercy Bishop MD PCP: Dr. Dex Wilkinson MD Status:A DM IN Location: [place] [address] Subjective Subjective Patient continues to complain of [...] 93.3 H, Lymph % (Auto) 2.5 L, Upson % (Auto) 2.5, Eos % (Auto) 0.0, [...] 93.3 H, Lymph % (Auto) 2.5 L, Upson % (Auto) 2.5, Eos % (Auto) 0.0, [...] her situation with Dr. Zambrano at the [facility] and he has agreed to [...] infraclavicular area. This is monitored with the [place] device clinic. (3) Hemorrhagic gastritis: QUALIFIERS: Chronicity: [...] 5. Will arrange for transfer to the [facility] with her heart failure service. Charges/Coding Visit Charges Inpatient E&M: 66066 Subs Hosp L3 07/23/24 1105 <Electronically signed by Mercy Bishop MD> Cosigner Signature (if applicable): CC: ~ Signed [facility] Work Phone: 1(111) 693-720805-12-2025 Progress note [facility] Medical Records Department [address] [place] [address] Progress Note - Hospitalist 07/23/24 0749 MR#: [id number] Acct: [id number] Name: MICHELLE MITCHELL Rep #:[id number] 2 : 1980 43 From: Willian Ovalles DO PCP: Dr. Dex Wilkinson MD Status:A DM IN Location: [place] [address] Reason for Visit Reason for Visit: Diagnoses [...] Std Deviation 49.4 H, RDW Coeff of Damno 13.9, Plt Count 372, MPV10.6, Immature Gran % (Auto) 1.500 H, Neut % (Auto) 93.3 H, Lymph % (Auto) 2.5 L, Upson % (Auto) 2.5, Eos % (Auto) 0.0, [...] on following up with Dr. Aguilar at [facility], CTS at [facility] that specialized in cardiac transplantation. She [...] her sister. Patient has been accepted to [facility], awaiting on bed availablily. Charges/Coding Visit Charges Inpatient E&M: 33271 [facility] Hosp L3 07/23/24 1231 Cosigner Signature (if applicable): CC: ~ Signed [facility]05-12-2025 Progress note [facility] Medical Records Department [address] [place] [address] Progress Note - Cardiology 07/23/24 0826 MR#: [id number] Acct: [id number] Name: MICHELLE MITCHELL Rep #:[id number] 2 : 1980 43 From: Mercy Bishop MD PCP: Dr. Dex Wilkinson MD Status:A DM IN Location: [place] [id number]- [id number] Subjective Subjective Patient continues to complain [...] 93.3 H, Lymph % (Auto) 2.5 L, Upson % (Auto) 2.5, Eos % (Auto) 0.0, [...] 93.3 H, Lymph % (Auto) 2.5 L, Upson % (Auto) 2.5, Eos % (Auto) 0.0, [...] her situation with Dr. Zambrano at the [facility] and he has agreed to [...] right infraclavicular area. This is monitored with [facility] device clinic. (3) Hemorrhagic gastritis: QUALIFIERS: Chronicity: [...] 5. Will arrange for transfer to the [facility] with her heart failure service. Charges/Coding Visit Charges Inpatient E&M: 35971 [facility] Hosp L3 07/23/24 1105 Cosigner Signature (if applicable): CC: ~ Signed [facility]05-11-2025 Progress note Author Willian Ovalles [facility] Note Date/Time July 22, 2024 1:45p m [facility] Medical Records Department [address] [place] [address] Progress Note - Hospitalist 07/22/24 0852 MR#: [id number] Acct: [id number] Name: ALBADELMIMICHELLE Rep #:[id number] 8 : 1980 43 From: Willain Ovalles DO PCP: Dr. Dex Wilkinson MD Status:A DM IN Location: [place] [address] Reason for Visit Reason for Visit: Diagnoses [...] 87.1 H, Lymph % (Auto) 6.4 L, Upson % (Auto) 4.8, Eos % (Auto) 0.2, [...] Dex Wilkinson Performed By: Maru Kothari FAY Physical Exam Const alert and no apparent [...] on following up with Dr. Aguilar at [facility], CTS at [facility] that specialized in cardiac transplantation. She may be refferred by Dr. Aguilar since she will be following up there. PLAN: Plan VTE prophylaxis: LMWH. Charges/Coding Visit Charges Inpatient E&M: 87084 Subs Hosp L2 07/22/24 1345 <Electronically signed by Willian Ovalles DO> Cosigner Signature (if applicable): CC: ~ Signed [facility] Work Phone: 1(746) 470-527005-11-2025 Progress note Author Saman Clay [facility] Note Date/Time July 22, 2024 12:00 pm [facility] Medical Records Department [address] [place] [address] Progress Note - Cardiology 07/22/24 1157 MR#: [id number] Acct: [id number] Name: MICHELLE MITCHELL Rep #:[id number] 6 : 1980 43 From: Saman Clay MD PCP: Dr. Dex Wilkinson MD Status:A DM IN [facility] Subjective Subjective Continues to complain of abdominal [...] 87.1 H, Lymph % (Auto) 6.4 L, Upson % (Auto) 4.8, Eos % (Auto) 0.2, [...] 87.1 H, Lymph % (Auto) 6.4 L, Upson % (Auto) 4.8, Eos % (Auto) 0.2, [...] Dex Wilkinson Performed By: Maru Kothari FAY Physical Exam Narrative Comfortable. No apparent distress. [...] Cosigner Signature (if applicable): CC: ~ Signed [facility] Work Phone: 1(503) 125-760205-11-2025 Progress note [facility] Medical Records Department [address] [place] [address] Progress Note - Hospitalist 07/22/24 0852 MR#: [id number] Acct: [id number] Name: MICHELLE MITCHELL Rep #:[id number] 8 : 1980 43 From: Willian Ovalles DO PCP: Dr. Dex Wilkinson MD Status:A DM IN Location: [place] [address] Reason for Visit Reason for Visit: Diagnoses [...] L 61 18 115/69 99 Room Air 05/11/25 05:44 07/22/24 05:44 07/22/24 05:44 07/22/24 05:44 [...] 87.1 H, Lymph % (Auto) 6.4 L, Upson % (Auto) 4.8, Eos % (Auto) 0.2, [...] on following up with Dr. Aguilar at [facility], CTS at [facility] that specialized in cardiac transplantation. She may be refferred by Dr. Aguilar since she will be following up there. PLAN: Plan VTE prophylaxis: LMWH. Charges/Coding Visit Charges Inpatient E&M: 51609 Subs Hosp L2 07/22/24 1345 Cosigner Signature (if applicable): CC: ~ Signed [facility]05-11-2025 Progress note [facility] [facility] Medical Records Department [address] [place] [address] Progress Note - Cardiology 07/22/24 1157 MR#: [id number] Acct: [id number] Name: MICHELLE MITCHELL Rep #:[id number] 6 : 1980 43 From: Saman Clay MD PCP: Dr. Dex Wilkinson MD Status:A DM IN Location: [place] [address] Subjective Subjective Continues to complain of abdominal [...] 87.1 H, Lymph % (Auto) 6.4 L, Upson % (Auto) 4.8, Eos % (Auto) 0.2, [...] 87.1 H, Lymph % (Auto) 6.4 L, Upson % (Auto) 4.8, Eos % (Auto) 0.2, [...] Physician: Dex Wilkinson Performed By: Maru Kothari, [facility] Physical Exam Narrative Comfortable. No apparent distress. [...] Cosigner Signature (if applicable): CC: ~ Signed [facility]05-10-2025 Consult note Author Saman Clay [facility] Note Date/Time July 21, 2024 1:26p m [facility] Medical Records Department [address] [place] [address] Consultation - Cardiology 07/21/24 1316 MR#: [id number] Acct: [id number] Name: MICHELLE MITCHELL Rep #:[id number] 6 : 1980 43 From: Saman Clay MD PCP: Dr. Dex Wilkinson MD Status:A DM IN Location: [facility] [id number]- [id number] Assessment & Plan Assessment/Plan (1) Acute [...] reflux into the hepatic veins. [facility] Medical History (Updated 07/21/24 @ 13:[address] 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 Ovarian cancer GERD [...] albuterol sulfate 90 mcg/actuation 1 inh inhalation [place] N 07/26/23 Unknown History aerosol inhaler dicyclomine [...] 94.7 H, Lymph % (Auto) 2.7 L, Upson % (Auto) 1.5, Eos % (Auto) 0.0, [...] Albumin 4.3, Globulin 2.5, Albumin/Globulin Ratio 1.7, [id number] 07/20/24 20:05: Urine Color Straw, Urine Clarity Clear, Urine pH 6.0, Ur Specific [place] 1.020, Urine Protein 100 H, Urine Glucose [...] 92.6 H, Lymph % (Auto) 3.5 L, Upson % (Auto) 2.6, Eos % (Auto) 0.1, [...] 94.7 H, Lymph % (Auto) 2.7 L, Upson % (Auto) 1.5, Eos % (Auto) 0.0, [...] Clarity Clear, Urine pH 6.0, Ur Specific Eng[place] 1.020, Urine Protein 100 H, Urine Glucose [...] 92.6 H, Lymph % (Auto) 3.5 L, Upson % (Auto) 2.6, Eos % (Auto) 0.1, [...] 20:06 IMPRESSION: No Acute Findings. Reading Location: [facility] Abdomen/Pelvis CT 07/20/24 21:15 IMPRESSION: 1. No acute findings in the abdomen and pelvis. 2. Mild hepatomegaly with heterogenous hepatic attenuation. 3. Small abdominopelvic ascites. Reading Location: [facility] Chest CTA 07/20/24 21:15 IMPRESSION: 1. [...] applicable): CC: Dr. Dex Wilkinson MD~ Signed [facility] Work Phone: 1(433) 401-463105-10-2025 Progress note Author Willian Ovalles [facility] Note Date/Time July 21, 2024 11:37 am [facility] Medical Records Department [address] [place] [address] Progress Note - Hospitalist 07/21/24 0753 MR#: [id number] Acct: [id number] Name: MICHELLE MITCHELL Rep #:[id number] 5 : 1980 43 From: Willian Ovalles DO PCP: Dr. Dex Wilkinson MD Status:A DM IN Location: [place] [address] Reason for Visit Reason for Visit: Diagnoses [...] 94.7 H, Lymph % (Auto) 2.7 L, Upson % (Auto) 1.5, Eos % (Auto) 0.0, [...] Albumin 4.3, Globulin 2.5, Albumin/Globulin Ratio 1.7, [id number] 07/20/24 20:05: Urine Color Straw, Urine Clarity Clear, Urine pH 6.0, Ur Specific Engad[place] 1.020, Urine Protein 100 H, Urine Glucose [...] 92.6 H, Lymph % (Auto) 3.5 L, Upson % (Auto) 2.6, Eos % (Auto) 0.1, [...] 20:06 IMPRESSION: No Acute Findings. Reading Location: [facility] Abdomen/Pelvis CT 07/20/24 21:15 IMPRESSION: 1. No acute findings in the abdomen and pelvis. 2. Mild hepatomegaly with heterogenous hepatic attenuation. 3. Small abdominopelvic ascites. Reading Location: [facility] Chest CTA 07/20/24 21:15 IMPRESSION: 1. No evidence of pulmonary embolism. 2. Diffuse interlobular septal thickening, scattered ground-glass opacities and bilateral pleural effusions, concerning for pulmonary edema. 3. Cardiomegaly, with trace pericardial effusion. 4. Contrast reflux into the hepatic veins suggestive of right heart dysfunction. Reading Location: [facility] Physical Exam Const alert and no apparent [...] prophylaxis: LMWH. Charges/Coding Visit Charges Inpatient E&M: 28399 Subs Hosp L2 07/21/24 1137 <Electronically signed by Willian Ovalles DO> Cosigner Signature (if applicable): CC: ~ Signed [facility] Work Phone: 1(273) 310-869405-10-2025 Consult note [facility] Medical Records Department [address] [place] [address] Consultation - Cardiology 07/21/24 1316 MR#: [id number] Acct: [id number] Name: MICHELLE MITCHELL Rep #:[id number] 6 : 1980 43 From: Saman Clay MD PCP: Dr. Dex Wilkinson MD Status:A DM IN Location: [facility] [id number]- [id number] Assessment & Plan Assessment/Plan (1) Acute [...] reflux into the hepatic veins. [facility] Medical History (Updated 07/21/24 @ 13:[address] 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 Ovarian cancer GERD [...] albuterol sulfate 90 mcg/actuation 1 inh inhalation [place] N 07/26/23 Unknown History aerosol inhaler dicyclomine [...] 94.7 H, Lymph % (Auto) 2.7 L, Upson % (Auto) 1.5, Eos % (Auto) 0.0, [...] Albumin 4.3, Globulin 2.5, Albumin/Globulin Ratio 1.7, [id number] 07/20/24 20:05: Urine Color Straw, Urine Clarity Clear, Urine pH 6.0, Ur Specific Engad[place] 1.020, Urine Protein 100 H, Urine Glucose [...] 92.6 H, Lymph % (Auto) 3.5 L, Upson % (Auto) 2.6, Eos % (Auto) 0.1, [...] 94.7 H, Lymph % (Auto) 2.7 L, Upson % (Auto) 1.5, Eos % (Auto) 0.0, [...] Clarity Clear, Urine pH 6.0, Ur Specific Engad[place] 1.020, Urine Protein 100 H, Urine Glucose [...] 92.6 H, Lymph % (Auto) 3.5 L, Upson % (Auto) 2.6, Eos % (Auto) 0.1, [...] 20:06 IMPRESSION: No Acute Findings. Reading Location: [facility] Abdomen/Pelvis CT 07/20/24 21:15 IMPRESSION: 1. No acute findings in the abdomen and pelvis. 2. Mild hepatomegaly with heterogenous hepatic attenuation. 3. Small abdominopelvic ascites. Reading Location: [facility] Chest CTA 07/20/24 21:15 IMPRESSION: 1. No evidence of pulmonary embolism. 2. Diffuse interlobular septal thickening, scattered ground-glass opacities and bilateral pleural effusions, concerning for pulmonary edema. 3. Cardiomegaly, with trace pericardial effusion. 4. Contrast reflux into the hepatic veins suggestive of right heart dysfunction. Reading Location: [facility] 07/21/24 1326 Cosigner Signature (if applicable): CC: Dr. Dex Wilkinson MD~ Signed [facility]05-10-2025 Progress note [facility] Medical Records Department [address] [place] [address] Progress Note - Hospitalist 07/21/24 7275 MR#: [id number] Acct: [id number] Name: MICHELLE MITCHELL Rep #:[id number] 5 : 1980 43 From: Willian Ovalles DO PCP: Dr. Dex Wilkinson MD Status:A DM IN Location: [place] [address] Reason for Visit Reason for Visit: Diagnoses [...] 94.7 H, Lymph % (Auto) 2.7 L, Upson % (Auto) 1.5, Eos % (Auto) 0.0, [...] Albumin 4.3, Globulin 2.5, Albumin/Globulin Ratio 1.7, [id number] 07/20/24 20:05: Urine Color Straw, Urine Clarity Clear, Urine pH 6.0, Ur Specific Engad[place] 1.020, Urine Protein 100 H, Urine Glucose [...] 92.6 H, Lymph % (Auto) 3.5 L, Upson % (Auto) 2.6, Eos % (Auto) 0.1, [...] 20:06 IMPRESSION: No Acute Findings. Reading Location: [facility] Abdomen/Pelvis CT 07/20/24 21:15 IMPRESSION: 1. No acute findings in the abdomen and pelvis. 2. Mild hepatomegaly with heterogenous hepatic attenuation. 3. Small abdominopelvic ascites. Reading Location: [facility] Chest CTA 07/20/24 21:15 IMPRESSION: 1. No evidence of pulmonary embolism. 2. Diffuse interlobular septal thickening, scattered ground-glass opacities and bilateral pleural effusions, concerning for pulmonary edema. 3. Cardiomegaly, with trace pericardial effusion. 4. Contrast reflux into the hepatic veins suggestive of right heart dysfunction. Reading Location: [facility] Physical Exam Const alert and no apparent [...] prophylaxis: LMWH. Charges/Coding Visit Charges Inpatient E&M: 14657 Subs Hosp L2 07/21/24 1137 Cosigner Signature (if applicable): CC: ~ Signed [facility]05-10-2025 History and physical note Author Sergio Whalen [facility] Note Date/Time July 21, 2024 6:28a m [facility] Medical Records Department [address] [place] [address] H&P Exam - Hospitalist 07/20/24 2322 MR#: [id number] Acct: [id number] Name: MICHELLE MITCHELL Rep #:[id number] 7 : 1980 43 From: Sergio Giles DO PCP: Dr. Dex Wilkinson MD Status:A DM IN Location: [place] [id number] [facility] - General General Date of Admission: 07/21/24 [...] recent colonoscopy ~8 days ago who presentsto [facility] ER complaining of shortness of breath and [...] to extend beyond 2 midnights. [facility] Medical History (Updated 07/21/24 @ 01:[address] 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 Reading Location: [facility] Abdomen/Pelvis CT 07/20/24 21:15 IMPRESSION: 1. No acute findings in the abdomen and pelvis. 2. Mild hepatomegaly with heterogenous hepatic attenuation. 3. Small abdominopelvic ascites. Reading Location: [facility] Chest CTA 07/20/24 21:15 IMPRESSION: 1. No evidence of pulmonary embolism. 2. Diffuse interlobular septal thickening, scattered ground-glass opacities and bilateral pleural effusions, concerning for pulmonary edema. 3. Cardiomegaly, with trace pericardial effusion. 4. Contrast reflux into the hepatic veins suggestive of right heart dysfunction. Reading Location: [facility] Assessment & Plan Assessment/Plan (1) Heart [...] to evaluate LVEF. Finally, we will consult [facility] to see this patient on [...] culture and sensitivity data. Give acetaminophen prn [id number] (level 1-5/10) pain or fever. Give low-dose [...] 75 minutes. Charges/Coding Visit Charges Inpatient E&M: 65787 Init Hosp L3 07/21/24 0628 <Electronically signed by Sergio Umaña DO> Cosigner Signature (if applicable): CC: Dr. Sergio Umaña DO; Dr. Dex Wilkinson MD~ Signed [facility] Work Phone: 1(537) 993-409905-10-2025 History and physical note [facility] Medical Records Department [address] [place] [address] H&P Exam - Hospitalist 07/20/24 2322 MR#: [id number] Acct: [id number] Name: MICHELLE MITCHELL Rep #:[id number] 7 : 1980 43 From: Sergio Giles DO PCP: Dr. Dex Wilkinson MD Status:A DM IN Location: [facility] [id number] 1 [facility] - General General Date of Admission: 07/21/24 [...] recent colonoscopy ~8 days ago who presentsto [facility] ER complaining of shortness of breath and [...] to extend beyond 2 midnights. [facility] Medical History (Updated 07/21/24 @ 01:[address] Sergio Umaña DO) Cancer History of steroid therapy Easy bruising Migraine headache History of hiatal hernia History of ulceration History of IBS Abdominal bloating Stomach pain Nausea & vomiting Shortness of breath on exertion Smoker History of echocardiogram Chest pain Pulmonary embolism Endometrial cancer Cervical cancer longterm current use of 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 Ovarian cancer GERD [...] albuterol sulfate 90 mcg/actuation 1 inh inhalation [place] N 07/26/23 Unknown History aerosol inhaler dicyclomine [...] 94.7 H, Lymph % (Auto) 2.7 L, Upson % (Auto) 1.5, Eos % (Auto) 0.0, [...] Clarity Clear, Urine pH 6.0, Ur Specific Engad[place] 1.020, Urine Protein 100 H, Urine Glucose [...] 20:06 IMPRESSION: No Acute Findings. [facility] Abdomen/Pelvis CT 07/20/24 21:15 IMPRESSION: 1. No acute findings in the abdomen and pelvis. 2. Mild hepatomegaly with heterogenous hepatic attenuation. 3. Small abdominopelvic ascites. Reading [facility] Chest CTA 07/20/24 21:15 IMPRESSION: 1. No evidence of pulmonary embolism. 2. Diffuse interlobular septal thickening, scattered ground-glass opacities and bilateral pleural effusions, concerning for pulmonary edema. 3. Cardiomegaly, with trace pericardial effusion. 4. Contrast reflux into the hepatic veins suggestive of right heart dysfunction. Reading Location: [facility] Assessment & Plan Assessment/Plan (1) Heart [...] to evaluate LVEF. Finally, we will consult [facility] to see this patient on [...] culture and sensitivity data. Give acetaminophen prn [id number] (level 1-5/10) pain or fever. Give low-dose [...] 75 minutes. Charges/Coding Visit Charges Inpatient E&M: 20367 Init Hosp L3 07/21/24 0628 Cosigner Signature (if applicable): CC: Dr. Sergio Umaña DO; Dr. Dex Wilkinson MD~ Signed [facility]05-10-2025 Discharge summary Author Carlosdarshan Nair [facility] Note Date/Time July 20, 2024 11:28p [facility] Medical Records Department [address] [place] [address] Emergency Department Summary 07/20/24 MR#: [id number] Acct: [id number] Name: MICHELLE MITCHELL Rep #:[id number] 2 : 1980 43 From: Carlos Jama PCP: Dr. 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 Torrez (internal medicine) [facility] Narrative: Patient was initially tachypneic otherwise [...] anemia or thrombocytopenia noted BMP without significant Kilauea abnormalities, no sign of RADHA, LFTs within [...] to PCU This note was generated with [employer] dictation software. It may contain incorrectwords, spelling, [...] 94.7 H Lymph % (Auto) 2.7 L Upson % (Auto) 1.5 Eos % (Auto) 0.0 [...] Clarity Clear Urine pH 6.0 Ur Specific Engadine 1.020 Urine Protein 100 H Urine Glucose [...] 20:06 IMPRESSION: No Acute Findings. Reading Location: [facility] Chest CTA 07/20/24 21:15 IMPRESSION: 1. No evidence of pulmonary embolism. 2. Diffuse interlobular septal thickening, scattered ground-glass opacities and bilateral pleural effusions, concerning for pulmonary edema. 3. Cardiomegaly, with trace pericardial effusion. 4. Contrast reflux into the hepatic veins suggestive of right heart dysfunction. Reading Location: [facility] Discharge Plan Triage Chief Complaint: Shortness of [...] MD [Primary Care Provider] - Print Language: Peruvian What to do if you have Problems For any increased pain, shortness of breath, bleeding, nausea or vomiting, chestpain, or any unexpected problems, contact your Primary Care Provider. Call [facility] ([phone]) or report to the closest Emergency Room. Call 911 if necessary. 07/20/242327 <Electronically signed by Carlos Nair DO> Cosigner Signature (if applicable): CC: Dr. Dex Wilkinson MD ~ Signed [facility] Work Phone: 1(786) 327-394605-09-2025 Discharge summary [facility] Medical Records Department [address] [place] [address] Emergency Department Summary 07/20/24 MR#: [id number] Acct: [id number] Name: MICHELLE MITCHELL Rep #:[id number] 2 : 1980 43 From: Carlos Jama PCP: Dr. 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 Torrez (internal medicine) [facility] Narrative: Patient was initially tachypneic otherwise [...] anemia or thrombocytopenia noted BMP without significant Kilauea abnormalities, no sign of RADHA, LFTs within [...] to PCU This note was generated with [employer] dictation software. It may contain incorrectwords, spelling, [...] 94.7 H Lymph % (Auto) 2.7 L Upson % (Auto) 1.5 Eos % (Auto) 0.0 [...] Clarity Clear Urine pH 6.0 Ur Specific Engadine 1.020 Urine Protein 100 H Urine Glucose [...] 20:06 IMPRESSION: No Acute Findings. Reading Location: [facility] Chest CTA 07/20/24 21:15 IMPRESSION: 1. No evidence of pulmonary embolism. 2. Diffuse interlobular septal thickening, scattered ground-glass opacities and bilateral pleural effusions, concerning for pulmonary edema. 3. Cardiomegaly, with trace pericardial effusion. 4. Contrast reflux into the hepatic veins suggestive of right heart dysfunction. Reading Location: [facility] Discharge Plan Triage Chief Complaint: Shortness of [...] MD [Primary Care Provider] - Print Language: Peruvian What to do if you have Problems For any increased pain, shortness of breath, bleeding, nausea or vomiting, chestpain, or any unexpected problems, contact your Primary Care Provider. Call [facility] ([phone]) or report tothe closest Emergency Room. Call 911 if necessary. 07/20/24 7614 Cosigner Signature (if applicable): CC: Dr. Dex Wilkinson MD ~ Signed [facility]05-09-2025 Radiology Diagnostic study note [facility] Imaging Services [address] [place], [place] [id number] Abdomen/Pelvis W IV Cont ONLY MR#: [id number] Acct: [id number] Name: MICHELLE MITCHELL Rep #: [id number] 3 : 1980 F 43 From: Mariana Moreno MD PCP: Dr. Dex Wilkinson MD Status: R EG ER Study:Abdomen/Pelvis W IV Cont ONLY Date of E xam: 07/20/24 Exam# [id number] Ordering Dr: Almaz Nair DO PROCEDURE: ABDOMEN/PELVIS [...] attenuation. 3. Small abdominopelvic ascites. [facility] CC: Dr. Dex Wilkinson MD; Dr. Carlos Nair DO ~ Manager Of Clinical: Signed [facility]05-09-2025 Radiology Diagnostic study note [facility] Imaging Services [address] [place], [place] [id number] CTA Chest W/WO Contrast MR#: [id number] Acct: [id number] Name: MICHELLE MITCHELL Rep #: [id number] 2 : 1980 F 43 From: Mariana Moreno MD PCP: Dr. Dex Wilkinson MD Status: R EG ER Study:CTA Chest W/WO Contrast Date of Exam: 07/20/24 Exam# [id number] Ordering Dr: Almaz Nair DO PROCEDURE: CTA [...] of right heart dysfunction. Reading Location: [facility] CC: Dr. Dex Wilkinson MD; Dr. Carlos Nair DO ~ Manager Of Clinical: Signed [facility]05-09-2025 Radiology Diagnostic study note [facility] Imaging Services [address] [place], [place] [address] Chest 1 View (Portable) MR#: [id number] Acct: [id number] Name: ALBAMICHELLE AWAD Rep #: [id number] 5 : 1980 F 43 From: Mariana Moreno MD PCP: Dr. Dex Wilkinson MD Status: R EG ER Study:Chest 1 View (Portable) Date of Exam: 07/20/24 Exam# [id number] Ordering Dr: Almaz Nair DO PROCEDURE: CHEST 1 VIEW (PORTABLE) 07/20/2024 REASON FOR EXAM: SHORTNESS OF BREATH TECHNIQUE: Frontal view of the chest. COMPARISON: 07/04/2023 FINDINGS: Hardware: Right pacemaker, unchanged. Heart: Cardiac and mediastinal contours are stable. Lungs: No focal consolidation. No pneumothorax. No pleural effusion. Bones: The bones are unremarkable. Other: RAD/Chest 1 View (Portable) IMPRESSION: No Acute Findings. Reading Location: [facility] CC: Dr. Dex Wilkinson MD; Dr. Carlos Nair DO ~ Manager Of Clinical: Signed [facility]05-09-2025 Discharge summary Author Carlos Nair [facility] Note Date/Time July 20, 2024 11:28p m [facility] Medical Records Department [address] [place] [address] Emergency Department Summary 07/20/24 MR#: [id number] Acct: [id number] Name: MICHELLE MITCHELL Rep #:[id number] 2 : 1980 43 From: Carlos Jama PCP: Dr. Dex Wilkinson MD Status:R EG ER Location: ED HPI History of Present Illness Chief Complaint: Shortness of Breath [facility] Medical History Cancer History of steroid therapy Easy bruising Migraine headache History of hiatal hernia History of ulceration History of IBS Abdominal bloating Stomach pain Nausea & vomiting Shortness of breath on exertion Smoker History of echocardiogram Chest pain Pulmonary embolism Endometrial cancer Cervical cancer longterm current use of 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 Ovarian cancer GERD [...] albuterol sulfate 90 mcg/actuation 1 inh inhalation [place] N 07/26/23 Unknown History aerosol inhaler oxycodone-acetaminophen [...] reviewed, Vital signs reviewed Constitutional: please see [facility] HENT: MMM Eyes: Pupils equal round [...] others: none Consults: Dr. Torrez (internal medicine) [facility] Narrative: Patient was initially tachypneic otherwise [...] to PCU This note was generated with [employer] dictation software. It may contain incorrectwords, spelling, [...] 94.7 H Lymph % (Auto) 2.7 L Upson % (Auto) 1.5 Eos % (Auto) 0.0 [...] Clarity Clear Urine pH 6.0 Ur Specific Engad[place] 1.020 Urine Protein 100 H Urine Glucose [...] 20:06 IMPRESSION: No Acute Findings. Reading Location: [facility] Chest CTA 07/20/24 21:15 IMPRESSION: 1. No evidence of pulmonary embolism. 2. Diffuse interlobular septal thickening, scattered ground-glass opacities and bilateral pleural effusions, concerning for pulmonary edema. 3. Cardiomegaly, with trace pericardial effusion. 4. Contrast reflux into the hepatic veins suggestive of right heart dysfunction. Reading Location: [facility] Discharge Plan Triage Chief Complaint: Shortness of [...] MD [Primary Care Provider] - Print Language: Peruvian What to do if you have Problems For any increased pain, shortness of breath, bleeding, nausea or vomiting, chestpain, or any unexpected problems, contact your Primary Care Provider. Call [facility] ([phone]) or report to the closest Emergency Room. Call 911 if necessary. 07/20/242327 <Electronically signed by Carlos Nair DO> Cosigner Signature (if applicable): CC: Dr. Dex Wilkinson MD ~ Signed [facility] Work Phone: 1(768) 242-858805-01-2025 [facility]04-27-2025 NoteHNO ID: [id number] Author: DEJA CASTELAN RN Service: Care Management [...] Primary Care Physician Name/Phone: Dr. Dex Wilkinson- [phone] Additional Information: Discharge order written for today. No skilled home going needs identified at discharge. SIGNATURE: Deja Castelan RN PATIENT NAME: Michelle Mitchell DATE: July 08, 2024 TIME: 7:29 [facility]os[facility]-52-2732 NoteHNO ID: [id number] Author: DEX WILKINSON MD Service: Family Practice Author Type: Physician Type: Progress Notes Filed: 07/07/2024 08:22 Note Text: INPATIENT PROGRESS NOTES Patient Name: Michelle Mitchell DATE of SERVICE: 07/07/2024 TIME of SERVICE: 8:21 AM PRIMARY SERVICE: [facility] INTERVAL HPI: had EGD - showed [...] MD DATE: July 07, 2024 TIME: 8:21 [facility] HospitalVezpwcav97-76-3425 NoteHNO ID: [id number] Author: TANJA VALVERDE RN Service: Care Management [...] Mitchell DATE: July 06, 2024 TIME: 11:23 [facility] HospitalKbtegdsv29-19-5278 NoteHNO ID: [id number] Author: DEX WILKINSON MD Service: Family Practice [...] MD DATE: July 06, 2024 TIME: 8:07 [facility] HospitalVezsjvsn75-99-8820 NoteHNO ID: [id number] Author: RU GARCIA Mechanical Specialist Service: Clinical Cardiology Author Type: Mechanical Specialist Type: Progress Notes Filed: 07/05/2024 11:07 Note Text: Summary: Pacemaker Check Pacemaker checked with [employer] and data transmitted. Spoke to rep who will fax report directly to the floor. Floor notified.[facility] CenterOuroejau89-34-0828 NoteHNO ID: [id number] Author: TANJA VALVERDE RN Service: Care Management Author Type: Registered Nurse Type: Care Mgt Initial Assessment Filed: 07/05/2024 09:10 Note Text: CARE MANAGEMENT: ASSESSMENT AND DISCHARGE PLAN SERVICE DATE: July 05, 2024 SERVICE TIME: 9:05 AM salesforce administrator spoke with patient to complete Care Management Assessment. Introduction made and role of Care Management explained. PCP: Dex Wilkinson MD - Patient confirmed. Primary Contact: Extended Emergency Contact Information Primary Emergency Contact: Babar Mitchell Address: [address] [place] [address] [address] Relation: Spouse Admission Status: Inpatient Insurance Provider: [employer] P[employer] Discharge Planning requested by: Per Department Practice Potential Transition Plans Home Advance Directives Current Advance Directive: None Laser/Electro Optics Technician Attempted to Assist with AD Completion: Yes [...] General wellness, Be able to go home Claridge of Choice Explained: Claridge of Choice Given: No (Discharge Needs: To be Determined) Are you interested in bedside delivery of your medications? N/A Discharge Pharmacy Preference: [facility] in [place] Discharge Planning Participant(s): Family (Spouse and 19 [...] Mitchell DATE: July 05, 2024 TIME: 9:05 [facility] HospitalIulwrvef33-67-5118 NoteHNO ID: [id number] Author: ALEKSANDRA CALDWELL APRN.SYDNI Service: General Internal Medicine Author Type: Nurse Practitioner Type: Progress Notes Filed: 07/05/2024 00:00 Note Text: INTERNAL MEDICINE PROGRESS NOTE SERVICE DATE: 07/04/2024 SERVICE TIME: 2099 Primary Attending: Dr. Harris, Shanna Gamino MD Subjective CHIEF COMPLAINT: Abdominal Pain (was seen twice [place] her dr told her to come here [...] pain x3 days. Patient has presented to [facility] 2 times in the past few days with the same complaints and was discharge home. Patient continued to have worsening pain she discussed with her PCP Dr. Wilkinson who told her to go to [facility]. Lab work showing some mild transaminitis ALT/AST [...] Recent Labs 07/04/24 1 (more content not included)...[facility] CenterBkrbubmk66-23-9243 Evaluation note* Diagnosis Onset Date Resolution Status [...] Pulmonary hypertension acute Ma y 2024 8:24am [facility] Work Phone: 1(516) 791-253804-22-2025 Evaluation note* Diagnosis Onset Date Resolution Status [...] Pulmonary hypertension acute Ma y 2024 8:24am [facility] Work Phone: 1(890) 747-141704-22-2025 Evaluation note* Diagnosis Onset Date Resolution Status [...] disease) acute August 20, 2024 5 :47pm [facility] Work Phone: 1(517) 778-224104-22-2025 Evaluation note* Diagnosis Onset Date Resolution Status [...] July 122024 12:26am Pulmonary hypertension acute Ma 2024 12:26am Vegetation of heart valve acute July 21, 2024 12:26am Elevated troponin resolved July 12:26am Nausea & vomiting resolved July 10 [...] 8 :24am Elevated liver enzymes resolved Ju pr 2024 5:47pm Abdominal pain inactive August 20, 2024 5:47pm Dilated pancreatic duct inactive [facility] 20[facility] 5:47pm GERD (gastroesophageal reflu x disease) inactive August 20, 2024 5 :47pm [facility] Work Phone: 1(682) 676-316504-22-2025 Evaluation note* Diagnosis Onset Date Resolution Status [...] 12:26am Nausea & vomiting resolved July 12:26am Abdominal pain inactive July 21, 2024 [...] disease) inactive August 20, 2024 5 :47pm Elevated lipase acute September 11, 2024 11:43pm History of biliary stent insertion acute September 11, 2024 1 1:43pm History of celiac plexus block acute September 11, 2024 11:43pm History of insertion of pancreatic stent acute September 11, 2024 11:43pm Intractable abdominal pain acute September 11, 2024 11:43pm Leukocytosis acute September 11 11:43pm Chronic abdominal pain chronic Ju 2024 11:43pm [facility] Work Phone: 1(648) 302-247904-22-2025 Evaluation note* Diagnosis Onset Date Resolution Status Admit Date Abdominal pain inactive June 1:06pm Hypertrophic cardiomyopathy inactive July 04, 2024 11:17am ICD (implantable cardioverter-defibrillator) in place inactive July 04, 2024 11:17am Pacemaker inactive July 04 11:17am Hypertrophic cardiomyopathy inactive July 10, 2024 1:28pm ICD (implantable cardioverter-defibrillator) in place inactive July 10, 2024 1:28pm Abdominal pain inactive July 12, 2 025 9:45am GERD (gastroesophageal [...] 8 :24am Elevated liver enzymes resolved Ju pr 2024 5:47pm Abdominal pain inactive August 20, 2024 5:47pm Dilated pancreatic duct inactive J une 2024 5:47pm GERD (gastroesophageal reflu x disease) inactive August 20, 2024 5 :47pm Elevated lipase acute September 11, 2024 11:43pm History of biliary stent insertion acute September 11, 2024 1 1:43pm History of celiac plexus block acute September 11, 2024 11:43pm History of insertion of pancreatic stent acute September 11, 2024 11:43pm Intractable abdominal pain acute September 11, 2024 11:43pm Leukocytosis acute September 11 11:43pm Chronic abdominal pain chronic Ju ly 2024 11:43pm Abnormal uterine bleeding acute September 18, 2024 12:47pm Chronic abdominal pain chronic Ju ly 2024 12:47pm [place] [employer] Work Phone: 1(319) 388-311804-22-2025 Evaluation note* Diagnosis Onset Date Resolution Status Admit Date Abdominal pain inactive June 1:06pm ICD (implantable cardioverter-defibrillator) in place chronic July 04, 2024 11:17am Hypertrophic cardiomyopathy inactive July 04, 2024 11:17am Pacemaker inactive July 04 11:17am ICD (implantable cardioverter-defibrillator) in place chronic July 10, 2024 1:28pm Hypertrophic cardiomyopathy inactive July 10, 2024 1:28pm Abdominal pain inactive July 12, 9:45am GERD (gastroesophageal reflu x disease) inactive July 12, 2024 9: 45am Hemorrhagic gastritis acute July 21, 2024 12:26am HFrEF (heart failure with reduced ejection fraction) acute July 122024 12:26am Pulmonary hypertension acute 2024 12:26am Vegetation of heart valve acute July 21, 2024 12:26am ICD (implantable cardioverter-defibrillator) in place chronic July 21, 2024 1 2:26am Elevated troponin resolved July 12:26am Nausea & vomiting resolved July 10 h2024 12:26am Abdominal pain inactive July 21, 2024 12:26am Acute systolic congestive he art failure, NYHA class 3 inactive July 21, 2024 12:26am History of hypertrophic cardiomyopathy inactive July 21, 2024 1 2:26am Hypertension inactive July 21 12:26am Hypertrophic cardiomyopathy inactive July 21, 2024 12:26am Leukocytosis inactive July 21 12:26am Pacemaker inactive [...] disease) inactive August 20, 2024 5 :47pm Elevated lipase acute September 11, 2024 11:43pm History of biliary stent insertion acute September 11, 2024 1 1:43pm History of celiac plexus block acute September 11, 2024 11:43pm History of insertion of pancreatic stent acute September 11, 2024 11:43pm Intractable abdominal pain acute September 11, 2024 11:43pm Chronic abdominal pain chronic Ju ly 2024 11:43pm Leukocytosis inactive September 11 11:43pm Abnormal uterine bleeding acute September 18, 2024 12:47pm S/P ERCP acute September 18, 2024 12:47pm Chronic abdominal pain chronic Ju ly 2024 12:47pm HFrEF (heart failure with reduced ejection fraction) acute October 03, 2024 11:25am ICD (implantable cardioverter-defibrillator) in place chronic October 03, 2024 11:25am [place] [facility] Work Phone: 1(405) 311-684204-22-2025 Evaluation note* Diagnosis Onset Date Resolution Status Admit Date Abdominal pain inactive June 1:06pm ICD (implantable cardioverter-defibrillator) in place chronic July 04, 2024 11:17am Hypertrophic cardiomyopathy inactive July 04, 2024 11:17am Pacemaker inactive July 04 11:17am ICD (implantable cardioverter-defibrillator) in place chronic July 10, 2024 1:28pm Hypertrophic cardiomyopathy inactive July 10, 2024 1:28pm Abdominal pain inactive July 12, 2 025 9:45am GERD (gastroesophageal reflu x disease) inactive July 12, 2024 9: 45am Hemorrhagic gastritis acute July 21, 2024 12:26am HFrEF (heart failure with reduced ejection fraction) acute July 122024 12:26am Pulmonary hypertension acute Ma y 2024 12:26am Vegetation of heart valve acute July 21, 2024 12:26am ICD (implantable cardioverter-defibrillator) in place chronic July 21, 2024 1 2:26am Elevated troponin resolved July h2024 12:26am Nausea & vomiting resolved July h2024 12:26am Abdominal pain inactive July 21, 2024 12:26am Acute systolic congestive he art failure, NYHA class 3 inactive July 21, 2024 12:26am History of hypertrophic cardiomyopathy inactive July 21, 2024 1 2:26am Hypertension inactive July 21 12:26am Hypertrophic cardiomyopathy inactive July 21, 2024 12:26am Leukocytosis inactive July 21 12:26am Pacemaker inactive July 21, 2024 12:26am Presence of implantable cardioverter-defibrillator (ICD) inactive July 21, 2024 1 2:26am Severe pulmonary hypertension inacti ve July 21, [...] 2024 8 :24am Elevated liver enzymes resolved [facility] 2024 5:47pm Abdominal pain inactive August 20, 2024 5:47pm Dilated pancreatic duct inactive [facility] 2024 5:47pm GERD (gastroesophageal reflu x disease) inactive August 20, 2024 5 :47pm Elevated lipase acute September 11, 2024 11:43pm History of biliary stent insertion acute September 11, 2024 1 1:43pm History of celiac plexus block acute September 11, 2024 11:43pm History of insertion of pancreatic stent acute September 11, 2024 11:43pm Intractable abdominal pain acute September 11, 2024 11:43pm Chronic abdominal pain chronic 2024 11:43pm Leukocytosis inactive September 11 11:43pm Abnormal uterine bleeding acute September 18, 2024 12:47pm S/P ERCP acute September 18, 2024 12:47pm Chronic abdominal pain chronic Ju ly 2024 12:47pm HFrEF (heart failure with reduced ejection fraction) acute October 03, 2024 11:25am ICD (implantable cardioverter-defibrillator) in place chronic October 03, 2024 11:25am HFrEF (heart failure with reduced ejection fraction) acute Augus t 2024 3:17pm Pulmonary hypertension acute [place] 2024 3:17pm ICD (implantable cardioverter-defibrillator) in place chronic October 17, 2024 3:17pm [facility] Work Phone: 1(668) 477-152804-20-2025 Radiology Diagnostic study note [facility] Imaging Services [address] [place] [address] Abdomen/Pelvis W IV Cont ONLY MR#: [id number] Acct: [id number] Name: MICHELLE MITCHELL Rep #: [id number] 2 : 1980 F 43 From: Natali Mancuso DO PCP: Dr. Dex Wilkinson MD Status: R EG ER Study:Abdomen/Pelvis W IV Cont ONLY Date of E xam: 07/01/24 Exam# [id number] Ordering Dr: Anita Wade PROCEDURE: ABDOMEN/PELVIS W [...] bilateral pleural effusion with atelectasis. Reading [facility] CC: Dr. Dex Wilkinson MD; MARCIO Haywood ~ Manager Of Clinical: Signed [facility]04-20-2025 Telephone encounter Note* Telephone Encounter - Ella Cohen RN - 07/01/2024 3:41 PM EDT Your fax has been successfully sent to Dr. Wilkinson at [phone]. From: Ella Cohen RN 07/01/2024 3:37:02 PM Origin Record Created by SHANTE 07/01/2024 3:37:12 PM Conversion [RFPEEF5.tmp.PRT] Type: application/postscript G3 to TIFF #1: Success [image/g3] (77ms) GhostScript TIFF #1: Success [image/tiff] (209ms) ([id number]:WORKSRV3) 07/01/2024 3:37:18 PM Transmission Record Sent to [id number] with remote ID [id number] Result: Success Page record: 1 - 3 Elapsed time: 01:39 on channel 48 07/01/2024 3:37:19 PM Conversion Successfully created cover sheet. Type: application/vnd.openxmlformats-officedocument.wordprocessingml.document G3 to TIFF #1: Success [image/g3] (11ms) GhostScript TIFF #1: Success [image/tiff] (70ms) Resubmitted: [application/postscript] Word Automation #1: Success [image/g3] (1519ms) ([id number]:WORKSRV1) [facility] CenterNnzxdz46-08-6593 Miscellaneous Notes* Telephone Encounter - Ella Cohen RN - 07/01/2024 3:41 PM EDT Your fax has been successfully sent to Dr. Wilkinson at [phone]. From: Ella Cohen RN 07/01/2024 3:37:02 PM Origin Record Created by SHANTE 07/01/2024 3:37:12 PM Conversion [RFPEEF5.tmp.PRT] Type: application/postscript G3 to TIFF #1: Success [image/g3] (77ms) GhostScript TIFF #1: Success [image/tiff] (209ms) ([id number]:WORKSRV3) 07/01/2024 3:37:18 PM Transmission Record Sent to [id number] with remote ID [id number] Result: Success Page record: 1 - 3 Elapsed time: 01:39 on channel 48 07/01/2024 3:37:19 PM Conversion Successfully created cover sheet. Type: application/vnd.openxmlformats-officedocument.wordprocessingml.document G3 to TIFF #1: Success [image/g3] (11ms) GhostScript TIFF #1: Success [image/tiff] (70ms) Resubmitted: [application/postscript] Word Automation #1: Success [image/g3] (1519ms) ([id number]:WORKSRV1) * Telephone Encounter - Ella Cohen RN [...] smelled fecal. 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 R: Patient understands care advice to go to ED now or call 911. Patient states she cannot leave [facility] at this time, but will go as soon as she has someone to take over care. Patient strongly advised to go immediately. She advises she will go to [place]. No further needs at this time. Patient [...] menstrual period? no Protocols used: Abdominal Pain- Adpdg-DXXBT-OF documented in this [facility]04-20-2025 Telephone encounter Note* Telephone Encounter [...] smelled fecal. 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 R: Patient understands care advice to go to ED now or call 911. Patient states she cannot leave [facility] at this time, but will go as soon as she has someone to take over care. Patient strongly advised to go immediately. She advises she will go to [place]. No further needs at this time. Patient [...] menstrual period? no Protocols used: Abdominal Pain- Jlosj-MNRRU-IY [facility] CenterJeahcy28-07-6886 NoteHNO ID: [id number] Author: VANDANA CASTILLO RN Service: Care Management [...] Care Physician Name/Phone: Dex Wilkinson MD - [phone] Additional Information: Orders received for patient to discharge home. No skilled needs noted. Patient agreeable to discharge plan. Spouse to transport home. Bedside RN updated. SIGNATURE: Vandana Castillo RN PATIENT NAME: Michelle Mitchell DATE: May 21, 2024 TIME: 8:37 [facility] HospitalQqyizuya16-77-3822 NoteHNO ID: [id number] Author: LUIS MIGUEL VUONG MD Service: Cardiovascular [...] hours. SIGNATURE: Luis Miguel Vuong MD CELL; [phone] DATE: May 20, 2024 TIME: 11:40 [facility] HospitalDveyqzhp63-55-4068 NoteHNO ID: [id number] Author: DEX WILKINSON MD Service: Family Practice [...] MD DATE: May 21, 2024 TIME: 8:16 [facility] HospitalAylewscj80-54-8501 NoteHNO ID: [id number] Author: DEX WILKINSON MD Service: Family Practice [...] MD DATE: May 19, 2024 TIME: 7:24 AMOhiohealth [facility] Health CenterJxumnfco65-06-5024 NoteHNO ID: [id number] Author: JUNIOR SPICER LISW Service: Care Management Author Type: Logistics Account Manager Type: Care Mgt Progress Note Filed: 05/18/2024 [...] Mitchell DATE: May 18, 2024 TIME: 4:49 PMOhiohealth Nelsonville Health CenterIxylwtsq21-47-1288 NoteHNO ID: [id number] Author: DEX WILKINSON MD Service: Family Practice [...] MD DATE: May 19, 2024 TIME: 7:11 AMOhiohealth Nelsonville Health CenterGseyvsyh54-41-7362 NoteHNO ID: [id number] Author: DEX WILKINSON MD Service: Family Practice [...] MD DATE: May 18, 2024 TIME: 6:55 [facility] HospitalBjgtahtz69-24-4939 NoteHNO ID: [id number] Author: ALEXANDRIA COLE LSW Service: Care Management Author Type: Logistics Account Manager Type: Care Mgt Initial Assessment Filed: 05/16/2024 12:57 Note Text: CARE MANAGEMENT: ASSESSMENT AND DISCHARGE PLAN SERVICE DATE: May 16, 2024 SERVICE TIME: 12:53 PM PCP: Dex Wilkinson MD-verified Primary Contact: Extended Emergency Contact Information Primary Emergency Contact: Babar Mitchell Address: [address] [place] [address] [facility] Mobile Relation: Spouse Admission Status: Inpatient Insurance [facility] Discharge Planning requested by: Per Department Practice Potential Transition Plans Home, To Be Determined Advance Directives Current Advance Directive: None Laser/Electro Optics Technician Attempted to Assist with AD Completion: Yes [...] Be able to go home, Less pain Claridge of Choice Explained: Claridge of Choice Given: No Reason Not Given: [...] Is from home w/spouse and 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 Spouse to transport home when medically ready for discharge. SIGNATURE: Alexandria Cole MSW, BASEBALL INSPECTOR PATIENT NAME: Michelle Mitchell DATE: May 16, 2024 TIME: 12:53 PMOhiohealth Nelsonville Health CenterHyqzbcrt31-46-0575 NoteHNO ID: [id number] Author: DEX WILKINSON MD Service: Family Practice [...] 68 (!) 26 96 % -- -- 03/04/25 1230 123/65 -- -- 71 20 96 [...] MD DATE: May 16, 2024 TIME: 8:00 [facility] HospitalDteidomb77-31-3030 NoteHNO ID: [id number] Author: GIULIANO LEZAMA APRN.MANNEQUIN SANDER AND FINISHER Service: General Internal Medicine Author Type: Nurse Practitioner Type: Progress Notes Filed: 05/15/2024 19:01 Note Text: INTERNAL MEDICINE PROGRESS NOTE SERVICE DATE: 05/15/2024 SERVICE TIME: 183 Primary Attending: Dex Anderson MD Subjective CHIEF [...] 96 % -- (more content not included)... [facility] CenterDcalqdut66-04-9051 JyxtYYIT-GZP-8 (AGENT OF COVID-19) RNA: Not detected INFLUENZA A RNA: Not detected INFLUENZA B RNA: Not detected RESPIRATORY SYNCYTIAL VIRUS (RSV) RNA: Not detectedOhiohealth Nelsonville Health CenterComment on above:Performed By: #### [id number] ####[facility] LABORATORYCLIA [id number] [place] [address] [place] ZQLOSOK36-15-4472 Evaluation note* Diagnosis Onset Date Resolution Status Admit Date Hypertrophic cardiomyopathy acute March 28, 2024 11:28am ICD (implantable cardioverter-defibrillator) in place acute March 28 11:28am [facility] Work Phone: 1(147) 994-914401-15-2025 Evaluation note* Diagnosis Onset Date Resolution Status [...] 9: 45am Abdominal pain acute July 20 11:40pm Elevated troponin acute July 11:40pm Heart failure of unknown etiology acute July 20, 2024 11 :40pm Hypertrophic cardiomyopathy acute July 20, 2024 11:40pm ICD (implantable cardioverter-defibrillator) in place acute July 20, 2024 11 :40pm Leukocytosis acute July 20 11:40pm Nausea & vomiting acute July 11:40pm Pacemaker acute July 20, 2024 11:40pm [facility] Work Phone: 1(396) 219-670601-15-2025 Evaluation note* Diagnosis Onset Date Resolution Status [...] 2024 12:26am Hypertension chronic July 21 12:26am [facility] Work Phone: 1(390) 184-118308-19-2024 Evaluation + Plan noteExtracted from: Title:Clinical Document Author:VICTOR M ORTIZ Date:10/31/23 DOREEN ADMISSION HISTORY AN D PHYSICIAL CHIEF COMPLAINT: HISTORY OF PRESENT ILLNESS: REVIEW OF SYSTEMS: ACTIVE PROBLEMS: (5) Anxiety associated with depression (543208493) Hypertrophic cardiomyopathy (602895718) IBS (irritable bowel syndrome) (40496714) Rectal bleeding (859902322) Tobacco use (6193912054) MEDICATIONS: Active Inpt Meds: None Active PRN Meds: None One Time Meds: None Active IV Meds: Lactated Ringers Infusion 1,000 mL (LR 1,000 mL) Start: 10/31/23 9:47:00 EDT, Rate: 50 mL/hr, 10/31/23 9:47:00 EDT ALLERGIES: (3) codeine morphine Zithromax FAMILY HISTORY: SOCIAL HISTORY: PHYSICAL EXAM: VITALS: WqaaueLjdgNEEimoqIMKgX7YCU8PsijFz(kg) 10/30 10:0436.6--343663YH46/19 57.0 24 Hr Tmax: 36.6 at 10/30 [...] from: Title:Clinical Document Author:VICTOR M ORTIZ Date:10/31/23 STORY ADMISSION HISTORY AN D PHYSICIAL CHIEF COMPLAINT: HISTORY OF PRESENT ILLNESS: REVIEW OF SYSTEMS: ACTIVE PROBLEMS: (5) Anxiety associated with depression (797502629) Hypertrophic cardiomyopathy (416510755) IBS (irritable bowel syndrome) (80903587) Rectal bleeding (336191264) Tobacco use (5249313382) MEDICATIONS: Active Inpt Meds: None Active PRN Meds: None One Time Meds: None Active IV Meds: Lactated Ringers Infusion 1,000 mL (LR 1,000 mL) Start: 10/31/23 9:47:00 EDT, Rate: 50 mL/hr, 10/31/23 9:47:00 EDT ALLERGIES: (3) codeine morphine Zithromax FAMILY HISTORY: SOCIAL HISTORY: PHYSICAL EXAM: VITALS: MbknpnEsycTSWefgrWQDcY4EHK7OzlcZa(kg) 10/30 10:0436.6--073431DA81/19 57.0 24 Hr Tmax: 36.6 at 10/30 [...] changes to the H&P unless noted below. [facility] 08-19-2024 Hospital Discharge instructions Patient Education [...] until you are awake and alert. Take izsh-ghf-durhfoq and prescription medicines only as told by [...] 12/19/2013 Document Revised: 02/10/2018 Document Reviewed: 06/19/2016 [employer] Patient Education 2020 [employer]. 10/31/2023 10:42:58 Colonoscopy, Adult, Care After, Amzh-ez-Tyxr Colonoscopy, Adult, Care After This sheet gives [...] are soft and easy to digest. Take ujhy-eci-mhanimu or prescription medicines only as told by [...] 04/02/2011 Document Revised: 12/29/2017 Document Reviewed: 11/22/2016 [employer] Patient Education [employer]. Follow Up Care 10/13/2023 09:56:55 With:VICTOR M ORTIZ MD Address: [address] [address] [phone] When: Unknown Comments:The office will call within 2 weeks with pathology results and a follow up visit will be scheduled. [facility] 08-19-2024 Summary of episode note Discharge Instructions Thank you for allowing [facility] to assist you with your healthcare needs. The following is importantdischarge information regarding your hospital visit. Your Care Team DEX WILKINSON MD What to do next Follow Up Appointments Follow Up with VICTOR M ORTIZ MD Where:[address] [address] [phone] Additional Information: The office will call within [...] until you are awake and alert. Take wdqu-rqi-hnzvopn and prescription medicines only as told by [...] 12/19/2013 Document Revised: 02/10/2018 Document Reviewed: 06/19/2016 [employer] Patient Education 2020 [employer]. Colonoscopy, Adult, Care After This sheet gives [...] are soft and easy to digest. Take tazd-gek-edrxtbs or prescription medicines only as told by [...] 04/02/2011 Document Revised: 12/29/2017 Document Reviewed: 11/22/2016 [employer] Patient Education 2020 [employer] Additional Information VACCINATE! IT SAVES LIVES! Members of the community who have not yet received the COVID-19 vaccine and would like to receive it can visit one of [facility] vaccine clinics. There are many vaccine clinic locations within the [facility]. For locations and available times, please visit https://gettheshot.coronavirus.[place].gov/. It is important to note that some COVID mobile vaccine clinics are held outdoors and may be canceled in rainy or stormy conditions. To learn more about pediatric vaccinations (ages 5-11), we invite you to visit the [facility] webpage. [email or web address]/[email or web address]-[email or web address] [email or web address].htmlTo learn more about the COVID-19 vaccine, we invite you to visit the CDC website for a list of frequently asked questions.https://www.cdc.gov/coronavirus/2019-ncov/vaccines/faq.html [facility] Patient Portal Access Instructions: Stay connected with your healthcare team and access your personal medical information anytime with the [facility] Patient Portal. Please follow the directions below to create your [employer] account: 1.Access the email account you provided upon registration to the hospital/physician office.2.Look for an invitation email from [facility].3.Open the email and access the invitation link: AcceptInvitation to [facility] [employer] [facility] [employer].4.Fill in the required pandey to create your account. To access your account, visit [email or web address]. Click the blue button labeled Access Patient [...] who you will allowto register on the [facility] Patient Portal for access to your information. You can also access the [facility] [employer] [facility] Patient Portal on the [facility] johanna. Simply click on Patient Portal and then log into your account. If you would like to receive a full copy of your medical records, please contact the [facility] Medical Records Department by calling [phone], Tuesday through Tuesday between 8 a.m. and [...] Call your local pharmacy or go to http://bit.ly/8Q1Ty9u to find one close to you.3.Make use of household items: Use cat litter or old coffee grounds to dispose medications if other options arenot available. Mix your drugs with these household products, seal them in an airtight container andthrow it into the garbage. Call [facility]: [phone] to be sure your drugs can be [...] Adult, Care After Colonoscopy, Adult, Care After, Movq-vg-Thoy Medication Leaflets My discharge plan and instructions have been reviewed and explained to me and I,MICHELLE MITCHELL understand my current condition and have read and understand these discharge instructions. I have received a written copy of the plan/instructions. If I have questions, I am aware that I should contact my doctor. 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 Signature: Date/Time: Relationship to Patient: Witness Name/Signature: Date/Time: [facility]08-19-2024 Note STORY ADMISSION HISTORY AND PHYSICIAL CHIEF COMPLAINT: HISTORY OF PRESENT ILLNESS: REVIEW OF SYSTEMS: ACTIVE PROBLEMS: (5) Anxiety associated with depression (839196143) Hypertrophic cardiomyopathy (828307385) IBS (irritable bowel syndrome) (11373135) Rectal bleeding (403829996) Tobacco use (6810153730) MEDICATIONS: Active Inpt Meds: None Active PRN Meds: None One Time Meds: None Active IV Meds: Lactated Ringers Infusion 1,000 mL (LR 1,000 mL) Start: 10/31/23 9:47:00 EDT, Rate: 50 mL/hr, 10/31/23 9:47:00 EDT ALLERGIES: (3) codeine morphine Zithromax FAMILY HISTORY: SOCIAL HISTORY: PHYSICAL EXAM: VITALS: ThnqkiHvauOROqewyEPMdZ9QOC7FuesYc(kg) 10/30 10:0436.6--885990LK56/19 57.0 24 Hr Tmax: 36.6 at 10/30 [...] M ORTIZ MD on 10/31/2023 10:12 AM [facility]08-19-2024 Note STORY ADMISSION HISTORY AND PHYSICIAL CHIEF COMPLAINT: HISTORY OF PRESENT ILLNESS: REVIEW OF SYSTEMS: ACTIVE PROBLEMS: (5) Anxiety associated with depression (047293901) Hypertrophic cardiomyopathy (465432597) IBS (irritable bowel syndrome) (98575451) Rectal bleeding (609564676) Tobacco use (2094188958) MEDICATIONS: Active Inpt Meds: None Active PRN Meds: None One Time Meds: None Active IV Meds: Lactated Ringers Infusion 1,000 mL (LR 1,000 mL) Start: 10/31/23 9:47:00 EDT, Rate: 50 mL/hr, 10/31/23 9:47:00 EDT ALLERGIES: (3) codeine morphine Zithromax FAMILY HISTORY: SOCIAL HISTORY: PHYSICAL EXAM: VITALS: SmwbnvKngbKDPykzvGRXhE7HOA3GtuuFv(kg) 10/30 10:0436.6--234789CV36/19 57.0 24 Hr Tmax: 36.6 at 10/30 [...] M ORTIZ MD on 10/31/2023 10:11 AM [facility]08-19-2024 Anesthesiology Consult note Patient: MICHELLE MITCHELL Age: 43 years Sex: Female : 1980 Associated Diagnoses: None Author: ANGELIA GIBBS APRN-SECURITY SUPPORT ANALYST Preoperative Information Time of last food or [...] Insertion of cardiac defibrillator using fluoroscopic guidance (1196185548). Comments: 10/26/2023 10:54 Sophie Abraham RN PACER WITH DEFIB Mastectomy of left breast (3748924120). Laparoscopic cholecystenterostomy (3554851071). H/O: tubal ligation (123622013). Ablation of uterine fibroid using magnetic resonance imaging guidance (9983113012). History of appendectomy (8420782831). Social History: Social & Psychosocial Habits Alcohol [...] Equipment: Extension set . Assessment and Plan [place] [employer] Anesthesiologists (ASA) physical status classification: Class II. Anesthetic Preoperative Plan Anesthetic technique: MAC. Postoperative pain management: Per surgeon. Informed consent: signed by patient. Digitally Signed by ANGELIA GIBBS on 10/31/2023 10:06 AM [facility]04-22-2024 Telephone encounter Note* Telephone Encounter - Angela Krishna RN - 07/04/2023 7:34 PM EDT To:Angela Krishna 07/04/2023 7:33 PM Your fax has been successfully sent to Dr Wilkinson at [phone]. 07/04/2023 7:30:51 PM Transmission Record Sent to [phone] with remote ID [id number] Result: (0) Success Page record: 1 - 3 Elapsed time: 01:48 on channel 50 07/04/2023 7:29:28 PM Conversion Record Successfully created cover sheet. Type: application/vnd.openxmlformats-officedocument.wordprocessingml.document G3 to TIFF #1: Success [image/g3] (63ms) GhostScript TIFF #1: Success [image/tiff] (220ms) Resubmitted: [application/postscript] Word Automation #1: Success [image/tiff] (1411ms) ([id number]:WORKSRV2) 07/04/2023 7:29:06 PM Conversion Record [RFPDA51.tmp.PRT] Type: application/postscript G3 to TIFF #1: Success [image/g3] (92ms) GhostScript TIFF #1: Success [image/tiff] (359ms) (SHWP-[id number]:WORKSRV2) 07/04/2023 7:28:56 PM Origin Record Created by [facility] CenterEkftwu10-87-3595 Miscellaneous Notes* Telephone Encounter - Angela Krishna RN - 07/04/2023 7:34 PM EDT To:Angela Krishna 07/04/2023 7:33 PM Your fax has been successfully sent to Dr Wilkinson at [phone]. 07/04/2023 7:30:51 PM Transmission Record Sent to [phone] with remote ID [id number] Result: (0) Success Page record: 1 - 3 Elapsed time: 01:48 on channel 50 07/04/2023 7:29:28 PM Conversion Record Successfully created cover sheet. Type: application/vnd.openxmlformats-officedocument.wordprocessingml.document G3 to TIFF #1: Success [image/g3] (63ms) GhostScript TIFF #1: Success [image/tiff] (220ms) Resubmitted: [application/postscript] Word Automation #1: Success [image/tiff] (1411ms) (SHWP-[id number]:WORKSRV2) 07/04/2023 7:29:06 PM Conversion Record [RFPDA51.tmp.PRT] Type: application/postscript G3 to TIFF #1: Success [image/g3] (92ms) GhostScript TIFF #1: Success [image/tiff] (359ms) (SHWP-[id number]:WORKSRV2) 07/04/2023 7:28:56 PM Origin Record Created by [...] be seen in ED, Patient agreeable to [facility] and will have her drive her. Patient understands care advice. No further needs at this time. Reason for Disposition [1] MODERATE difficulty breathing (e.g., speaks in phrases, SOB even at rest, pulse 100-120) AND [2] NEW-onset or WORSE than normal Protocols used: Breathing Zdwvixcjmy-SSPZT-XC documented in this [facility]04-22-2024 Telephone encounter Note* Telephone Encounter - Angela [...] be seen in ED, Patient agreeable to [facility] and will have her drive her. Patient understands care advice. No further needs at this time. Reason for Disposition [1] MODERATE difficulty breathing (e.g., speaks in phrases, SOB even at rest, pulse 100-120) AND [2] NEW-onset or WORSE than normal Protocols used: Breathing Sisgcscsvf-PMLZE-SN [facility] CenterAkcnkc97-39-3461 Hospital Discharge instructions Additional Instructions Stop taking the clindamycin and start taking Augmentin instead. Follow-up with your dentist on Tuesday. Return to emergency room with any worsening symptoms or you have difficulty swallowing.[facility] Work Phone: 1(157) 464-675602-14-2022 NoteHNO ID: [id number] Author: Vandana Becerra MD Service: Hospital Medicine Author Type: Resident Type: Plan of Care Filed: 04/26/2021 10:10 PM Note Text: Patient states she has her son in a car accident and has to leave AMA. Patient understands the risks of leaving AMA including worsening shortness of breath, heart failure and . She still wants to leave AMA. Patient has capacity. Vandana Becerra MDBaldpate HospitalWyerkcxw48-90-6882 NoteHNO ID: [id number] Author: Vandana Becerra MD Service: Hospital Medicine Author Type: Resident Type: Plan of Care Filed: 04/26/2021 8:00 PM Note Text: Chart reviewed. ACS unlikely. Will give one dose ibuprofen for the pleuritic chest pain (Has h/o abnormal uterine bleed, however had ablation; no history of GI bleed.) Vandana Becerra MDBaldpate HospitalGunccyrs11-59-4378 NoteHNO ID: [id number] Author: Aj Mullins MD Service: Hospital Medicine Author Type: Physician Type: Progress Notes Filed: 04/26/2021 3:41 PM Note Text: DEPARTMENT OF HOSPITAL MEDICINE PROGRESS NOTE SERVICE DATE: 04/26/2021 SERVICE TIME: 3:30 PM Hospital Medicine/Primary Attending: Aj Mullins MD NIGHT AND WEEKEND COVERAGE: [place] COVERAGE:TEAM 2: [phone], please call Team 2 pager [phone]. [phone], please call [facility] Night Coverage pager ([phone]) for Teams 1, 2, AND 3 Subjective [...] -- 04/25/21 0830 activity - mobilize patient ([place], [place]) VTE Prophylaxis: on AC Disposition: Home Plan of care discussed with: Patient, RN and Consultants: cardiology dr. Zaragoza and Francisco TROY SIGNATURE: Aj Mullins MD PATIENT NAME: Michelle Mitchell DATE: April 26, 2021 TIME: 3:30 PM etx [id number] HospitalXkqtrznn08-15-0390 NoteHNO ID: [id number] Author: CHAKA Pedraza Tech Service: ? Author Type: Sponge Diver Type: Procedures Filed: 04/25/2021 2:42 PM Note Text: [employer] pacer interrogation done on 04/25/2021 @ [address] [place] [address] notified to call for report.B[facility]pate HospitalGwiyrjnk94-21-8305 Influenza virus A and B RNA and SARS-CoV-2 (COVID-19) N gene panel BIMAL+probe (Resp)COVID 19 RESULT: SARS-CoV-2 (Agent of COVID-19) Not Detected by PCR. INFLUENZA A PCR: Negative for Influenza A by RT-PCR INFLUENZA B PCR: Negative for Influenza B by RT-PCRNorthern Light Mayo HospitalComment on above: Performed By: #### [id number] #### [facility] CLIA [id number] [address] [place] [address] [facility] note Author Radu Allen [facility] Note Date/Time November 23, 2024 3:01pm [facility] Medical Records Department [address] [place] [address] Anesthesia Postop Eval I 11/23/24 1500 MR#: [id number] Acct: [id number] Name: MICHELLE MITCHELL Rep #:[id number] 8 : 1980 44 From: Radu Allen PCP: Dr. Dex Wilkinson MD Status:R [place] [facility] [place]: C Location: [place] [address] Anesthesia: Postop Eval I Current Vital Signs Temperature: 97.6 F Pulse Rate: 82 Blood Pressure: 104/55 Respiratory Rate: 16 Pulse Ox: 100 Oxygen Delivery Method: Room Air Assessment Airway patent: Yes Spontaneous unlabored respirations: Yes Mental status: Awake nausea: No Vomiting: No Anesthesia Complication: No Fluid Hydration Crystalloid volume administer (ml): 400 Total IV fluid infused: 400 Progress Note Anesthesia document: Postop Eval 1 completed: Yes 11/23/24 7845 <Electronically signed by aRdu Allen > Date _ Radu Fu Signature: Date CC: ~ Signed [facility] Work Phone: Consult note Author Willian Munoz [facility] Note Date/Time November 23, 2024 3:57pm [facility] Medical Records Department [address] [place] [address] Anesthesia Postop Eval II 11/23/24 1545 MR#: [id number] Acct: [id number] Name: MICHELLE MITCHELL Rep #:[id number] 5 : 1980 44 From: Willian Munoz MD PCP: Dr. Dex Wilkinson MD Status:R EG SDC Y Race: C Location: [address] Anesthesia Postop Eval I Sum Postop Eval Completion status Anesthesia document: Postop Eval 1 completed: Yes Anesthesia Postop Eval I Summary Anesthesia Postop Eval I Summary: Anesthesia Postop Eval I: Assessment Summary 3 Airway patent Yes 11/23/24 15:01 [email or web address] Spontaneous unlabored Yes 11/23/24 15:01 AA.TBEND respirations Mental status Awake 11/23/24 15:01 AA.TBEND nausea No 11/23/24 15:01 AA.TBEND Vomiting No 11/23/24 15:01 AA.TBEND Anesthesia Postop Eval I: Fluid Summary Crystalloid volume administer 400 11/23/24 15:01 AA.TBEND (ml) Colloids volume administered ( ml) Blood Product volume administered (ml) Total IV fluid infused 400 11/23/24 15:01 AA.TBEND Anesthesia Postop Eval I: Summary Notes Anesthesia Complication No 11/23/24 15:01 AA.TBEND Anesthesia Complication Comment: Post-operative progress note Anesthesia: Postop Eval II Evaluation Mental status: Awake Pain Level: 0 nausea: No Vomiting: No 11/23/24 5420 <Electronically signed by Willian Munoz MD> Date _ Willian Munoz MD Cosigner Signature: Date CC: ~ Signed [facility] Work Phone: Discharge summary Author Willian Ovalles [facility] Note Date/Time July 24, 2024 8:43a [facility] Medical Records Department [address] [place], [place] [address] [address] Discharge Summary 07/24/24 0839 MR#: [id number] Acct: [id number] Name: MICHELLE MITCHELL Rep #:[id number] 8 : 1980 43 From: Willian Ovalles DO PCP: Dr. Dex Wilkinson MD Status:A DM IN Location: [place] [address] Providers Date of Admission: 07/21/24 Primary Care Physician: Dr. Dex Wilkinson MD Consultations 07/21/24 00:48 Consult: Cardiology Routine Consulting Provider: [facility] Reason for Consult: AE CHF, Elevated Troponin and Near Syncope with Hypertrophic CM EMERGENT Consult: No MD Notified: Yes Date Notified: 07/21/24 Time Notified: 06:52 Method of Notification: Text Method of Consult:: In-Person 07/23/24 08:42 Consult: Gastroenterology Routine Consulting Provider: [facility] Reason for Consult: gastritis. clearance for [...] on following up with Dr. Aguilar at [facility], CTS at [facility] that specialized in cardiac transplantation. She [...] her sister. Patient has been accepted to [facility], awaiting on bed availablily. Medications at [...] heart transplant. So that is the reason [facility] was selected as a facility for [...] Care Hospital Charges/Coding Visit Charges Inpatient E&M: 22802 Disch Hosp >30min 07/24/24 0843 <Electronically signed by Willian Ovalles DO> Cosigner Signature (if applicable): CC: Dr. Willian Ovalles DO; Dr. Dex Wilkinson MD~ Signed [facility] Work Phone: Discharge summary Author Gage [facility] Note Date/Time August 11, 2024 1:39p m [facility] Medical Records Department [address] [place] [address] Emergency Department Summary 08/11/24 MR#: [id number] Acct: [id number] Name: MICHELLE MITCHELL Rep #:[id number] 6 : 1980 43 From: Gage rush [...] intact Psych: Cooperative, appropriate mood and affect [facility] Medical History (Updated 08/11/24 @ 13:36 by [...] pain Pulmonary embolism Endometrial cancer Cervical cancer longterm current use of 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 Ovarian cancer GERD [...] succinate 25 mg 25 mg PO QDAY 08/08/24 05/ History tablet,extended release 24 hr meloxicam 15 [...] 80.2 H Lymph % (Auto) 11.4 L Upson % (Auto) 4.9 Eos % (Auto) 1.9 [...] Sl. Cloudy Urine pH 7.0 Ur Specific [place] 1.010 Urine Protein 15 H Urine Glucose [...] Colonic diverticulosis without acute diverticulitis. Reading Location: [facility] Discharge Plan Triage Chief Complaint: Flank Pain [...] PM given you received Toradol. Print Language: Peruvian Disposition Disposition: Home, Self Care What to do if you have Problems For any increased pain, shortness of breath, bleeding, nausea or vomiting, chestpain, or any unexpected problems, contact your Primary Care Provider. Call [facility] ([phone]) or report to the closest Emergency Room. Call 911 if necessary. 08/11/24 1339 <Electronically signed by Gage Sharma DO> Cosigner Signature (if applicable): CC: Dr. Dex Wilkinson MD ~ Signed [facility] Work Phone: Discharge summary Author Emersonyan Sierra [facility] Note Date/Time September 14, 2024 11:02 am [facility] Medical Records Department [address] [place] [address] Instructions for Home/Discharge Instructions 09/14/24 1057 MR#: [id number] Acct: [id number] Name: MICHELLE MITCHELL Rep #:[id number] 5 : 1980 43 From: Emerson Arciniega PCP: Dr. Dex Wilkinson MD Status:A DM KISHA Discharge Instructions Diet Discharge Diet: Light diet - advance as tolerated and Soft diet DC O2, CPAP, BIPAP needs Home O2 Discharge instructions: No Follow Up Care Test Results: Test results from this visit will be discussed in further detail at your follow- up appointment, if applicable. Discharge Plan Admission Admit Date/Time: 09/11/24 23:43 Primary Reason for Your Visit: Abdominal pain, intractable nausea vomiting Attending Provider: Emerson Sierra Primary Care Provider: Dex Wilkinson Consulting Providers: Sergio Umaña Discharge Orders/Prescriptions Prescriptions: New ondansetron 4 mg tablet,disintegrating 4 mg PO Q8H PRN (Reason: nausea and vomiting) 14 Days Qty: 20 0RF lidocaine [Hemorrhoidal Relief] 5 % cream 1 applic topical BID 14 Days Qty: 30 1RF oxycodone 5 mg tablet 2.5 - 5 mg PO Q4H PRN PRN (Reason: Pain Score 4-10) 3 Days Qty: 7 0RF Rx Instructions: 2.5 mg for moderate pain 5 mg for severe pain respectively Continued metoprolol succinate 25 mg tablet extended release 24 hr 25 mg PO QDAY alprazolam 0.5 mg tablet 0.5 mg PO BID Patient Comments: TAKE 1 TABLET BY MOUTH TWICE DAILY zolpidem 10 mg tablet 10 mg PO QHS sucralfate [Carafate] 1 gram tablet 1 g PO BIDCM pantoprazole 40 mg tablet,delayed release (DR/EC) 40 mg PO BID spironolactone 25 mg tablet 25 mg PO DAILY Referrals / Follow Up: Aliya Dennison MD [Med Staff - Active Staff] - Within 1 Week Dex Wilkinson MD [Primary Care Provider] - Within 1 Week Quang Myles DO [Med Staff - Active Staff] - Within 1 Month Disposition Disposition (needs filled in before D/C Order can be placed): Home, Self Care 09/14/24 1102<Electronically signed by Emerson Sierra MD>Emerson Sierra MD CC: Dr. Sergio Umaña DO; Dr. Dex Wilkinson MD ~ Signed [facility] Work Phone: Discharge summary Author Emerson Sierra [facility] Note Date/Time September 14, 2024 11:05 am [facility] Medical Records Department [address] [place] [address] Discharge Summary 09/14/24 1102 MR#: [id number] Acct: [id number] Name: MICHELLE MITCHELL Rep #:[id number] 1 : 1980 43 From: Emerson Arciniega PCP: Dr. Dex Wilkinson MD Status:A DM KISHA [facility] Prov[facility] Date of Admission: 09/11/24 Date of Discharge: 09/14/24 Primary Care Physician: Dr. Dex Wilkinson MD Consultations 09/12/24 00:20 Consult: Gastroenterology Routine Consulting Provider: [facility] Reason for Consult: Intractable abdominal pain after recent failed celiac plexus block. EMERGENT Consult: No MD Notified: Yes Date Notified: 09/12/24 Time Notified: 06:14 Method of Notification: Text Reason For Visit: INTRACTABLE ABDOMINAL PAIN AFTER RECENT FAILED Diagnosis Discharge Diagnosis (1) Intractable abdominal pain: Status: Acute Code(s): R10.9 - Unspecified abdominal pain (2) Chronic abdominal pain: Status: Chronic Code(s): R10.9 - Unspecified abdominal pain; G89.29 - Other chronic pain (3) History of celiac plexus block: Status: Acute Code(s): Z98.890 - Other specified postprocedural states (4) Elevated lipase: Status: Acute Code(s): R74.8 - Abnormal levels of other serum enzymes (5) Leukocytosis: Status: Acute Code(s): D72.829 - Elevated white blood cell count, unspecified Qualifiers: Leukocytosis type: unspecified Qualified Code(s): D72.829 - Elevated white blood cell count, unspecified (6) History of biliary stent insertion: Status: Acute Code(s): Z98.890 - Other specified postprocedural states (7) History of insertion of pancreatic stent: Status: Acute Code(s): Z98.890 - Other specified postprocedural states Plan 43-year-old female admitted with RUQ/epigastric pain, back pain and generalized allover pain. Dr. Dennison has performed celiac block due to pain but that did not improve the pain. No fever or chills. 1. Intractable xcwqs-fe-tnlyhct abdominal pain after recent failed celiac plexus block - Admit to general medical floor under observation status. GI consulted. Change PPI IV pantoprazole once daily. Exact etiology of pain not clear. In afternoon, her abdominal pain came back. She had Dilaudid 1 mg. On fentanylpatch 25 mcg every 72 hours. Discharge is canceled. The patient does not feel confident to take her home. He said she will come right back in the ER 09/14: Advised follow-up with the pain rn document improvement specialist Dr. Dennison. Patient is stated that he did not like Dr. Dennison but advised to follow him up. Unintentional overdose risk score is above average, 380 and also she is on Xanax0.5 mg twice daily therefore advised to follow-up with Dr. Dennison pain medication prescription. Fentanyl patch comes in box of 5 therefore did not prescribe anything little bit too much. OARRS report checked. Oxycodone 5 mg tablet, 2.5 to 5 mg Q4 hourly as needed for moderate to severe pain respectively. Prescription of oxycodone 5 mg tablets sent to [facility]. 2. Mildly elevated lipase of 113 U/L present on admission - Doubt acute pancreatitis. Leukocytosis 13.7, probably inflammatory to she denies prior history of acute or chronic pancreatitis. Keep n.p.o. except medications and ice chips with sips and hydrate with NS at 150 cc/h x 2L. Repeat lipase tomorrow a.m. 3. History of biliary stent and pancreatic stent with chronic abdominal pain status post recent celiac plexus block procedure: She had ERCP 08/21/2024 which showed single localized biliary stricture in the lower third of CBD. Mid dilatation of pancreatic duct in the genu of PD and pancreatic duct stricture. Choledocholithiasis found and complete removal accomplished by balloon extraction and sphincterotomy. Single pancreatic stone found. Biliary tree wasswept. Cells for cytology obtained, 1 temporary stent into CBD and 1 temporary stent in ventral pancreatic duct. Cells brushing reported no malignant cells. 09/13: Heart rate is controlled. CT abdomen with and without contrast shows a stent in CBD at the point previous CT of 09/11. Trace pneumobilia probably from previous ERCP. Vasculature mild aortic atherosclerosis otherwise no acute abnormality. Impression: No significant interval change. . 4. Recent admission here from July 20, 2024 to July 24, 2024 for treatment of AE CHF with elevated NT pro-BNP II of 6,468 pg/mL present on admission with corresponding CT evidence of pulmonary vascular congestion complicated by mildlyelevated troponin and leukocytosis of 14.3 K with left shift of 1% due to possible superimposed pneumonia - Noted. 5. HOCM status post AICD with family history: Chronic history of dyspnea on exertion, stated had to stop twice on climbing 1 flight of stair but no significant problem on walking 500 feet on level ground. 6. Multiple other comorbidities which include chronic intermittent asthma, migraine headache, generalized anxiety and insomnia: Home medication decussationdone. 7. DVT prophylaxis - Enoxaparin 40 mg sq daily plus SCD's. Discharge medication reconciliation done. Discharge follow-up instructions completed. Discharge process discussed with the patient and all questions wereanswered to patient's satisfaction. Follow with PCP in 1 to 2 weeks Total time spent, exact 35 minutes on discharge meds reconciliation, examination, coordination of care with nurses and ancillary staff, review of imaging and blood test and discussion with the patient on follow-up instructions. Medications at Discharge Home Medications alprazolam 0.5 mg tablet 0.5 mg PO BID ANXIETY 11/13/21 zolpidem 10 mg tablet 10 mg PO QHS SLEEP 11/13/21 sucralfate 1 gram tablet (Carafate) 1 g PO BIDCM GERD 07/10/24 metoprolol succinate 25 mg tablet,extended release 24 hr 25 mg PO QDAY HEART 08/08/24 pantoprazole 40 mg tablet,delayed release 40 mg PO BID GERD 08/11/24 spironolactone 25 mg tablet 25 mg PO DAILY WATER PILL 08/20/24 lidocaine 5 % topical cream (Hemorrhoidal Relief) 1 applic topical BID pain 2 weeks #30 grams 09/13/24 ondansetron 4 mg disintegrating tablet 4 mg PO Q8H PRN nausea and vomiting 2 weeks #20 tabs 09/13/24 oxycodone 5 mg tablet 2.5 - 5 mg (0.5 - 1 x 5 mg) PO Q4H PRN PRN Pain Score 4- 103 days #7 tabs 09/14/24 Physical Exam Narrative Seen and examined Her heart rate is controlled. Patient came from bathroom and started crying that she still has pain. I tried to empathize with her that pain does not seem from organic cause but may be neuropathic functional pain. Advised to follow-uppain management Dr. Dennison. Patient denies any fever or chills. Vitals in normal range. Complain of epigastric abdominal pain which is acute on chronic. Denies prior history of acute or chronic pancreatitis, had cholecystectomy. She had ERCP and stent in pancreatic and bile duct. Personal and family history of HOCM status post defibrillator. She stated OCOM more prevalent in female than male in her family. In the past had 1 shock due to lead malfunction but not from cardiac arrest. Physical exam General: Alert, Oriented x3, Cooperative. BMI 21.7 kg/m? HEENT: Atraumatic, PERRLA, EOMI, Normocephalic. Oral: No Gingival or Mucosal Lesions/ Ulcerations Neck: Supple, No JVD, Negative Carotid Bruits Chest wall/Lungs: Air entry diminished in bilateral lung bases. No crepitation/rhonchi Cardiovascular: Pulse bisferiens on carotid palpation. regular rate and rhythm, Normal S1,S2, systolic murmur Abdomen: Tenderness present on epigastrium/RUQ. Bowel Sounds Present, Soft, nondistended : No dysuria. No renal angle tenderness. No suprapubic tenderness. Extremities: No edema, Capillary Refill Less than 3 Seconds Skin: No rashes, No breakdown Musculoskeletal: No Tenderness to Palpation of Joints or Extremities Neurological: Cranial nerves II-XII grossly intact, DTR 2+/4. No acute focal neurological deficit. Psych/Mental Status: Normal Affect, Appropriate. Weight / BMI Weight Weight: 142 lb 13.753 oz Body Mass Index (BMI) 24.5 ABG / Lab / Microbiology Data 09/14/24 05:16 09/14/24 05:16 Laboratory: Laboratory Results - last 24 hr 09/13/24 05:04: GGT 45 09/14/24 05:16: WBC 17.3 H, RBC 3.98 L, Hgb 12.2, Hct 38.4, MCV 96.5, MCH 30.7, MCHC 31.8 L, RDW Std Deviation 51.4 H, RDW Coeff of Damon 14.5, Plt Count 339, MPV10.2, Immature Gran % (Auto) 0.700, Neut % (Auto) 83.5 H, Lymph % (Auto) 6.7 L, Upson % (Auto) 8.8, Eos % (Auto) 0.1, Baso % (Auto) 0.2, Absolute Neuts (auto) 14.5 H, Absolute Lymphs (auto) 1.17, Nucleated RBC % 0, Sodium 131 L, Potassium 4.6, Chloride 101, Carbon Dioxide 18.9 L, Anion Gap 12, BUN 19, Creatinine 0.98,Estim Creat Clear Calc 63.26, Est GFR (MDRD) Non-Af 73, BUN/Creatinine Ratio 19.8, Glucose 119 H, Calcium 9.6, Total Bilirubin 0.90, Direct Bilirubin 0.39 H,AST 443 H, ALT 322 H, Alkaline Phosphatase 153 H, Total Protein 7.3, Albumin 4.6, Globulin 2.7 D/C Instructions Discharge Diet: Light diet - advance as tolerated and Soft diet DC O2, CPAP, BIPAP Needs Home O2 Discharge instructions: No Meaningful Use Info Meaningful Use Meaningful Use Diagnoses (Choose all that apply): None applicable Ischemic Stroke Statin Dosing Therapy Reference: STATIN [...] Simvastatin 80mg Discharge Plan Admission Admit Date/Time: 09/11/24 23:43 Primary Reason for Your Visit: Abdominal pain, intractable nausea vomiting Attending Provider: Emerson Sierra Primary Care Provider: Dex Wilkinson Consulting Providers: Sergio Umaña Discharge Orders/Prescriptions Prescriptions: New ondansetron 4 mg tablet,disintegrating 4 mg PO Q8H PRN (Reason: nausea and vomiting) 14 Days Qty: 20 0RF lidocaine [Hemorrhoidal Relief] 5 % cream 1 applic topical BID 14 Days Qty: 30 1RF oxycodone 5 mg tablet 2.5 - 5 mg PO Q4H PRN PRN (Reason: Pain Score 4-10) 3 Days Qty: 7 0RF Rx Instructions: 2.5 mg for moderate pain 5 mg for severe pain respectively Continued metoprolol succinate 25 mg tablet extended release 24 hr 25 mg PO QDAY alprazolam 0.5 mg tablet 0.5 mg PO BID Patient Comments: TAKE 1 TABLET BY MOUTH TWICE DAILY zolpidem 10 mg tablet 10 mg PO QHS sucralfate [Carafate] 1 gram tablet 1 g PO BIDCM pantoprazole 40 mg tablet,delayed release (DR/EC) 40 mg PO BID spironolactone 25 mg tablet 25 mg PO DAILY Referrals / Follow Up: Aliya Dennison MD [Med Staff - Active Staff] - Within 1 Week Dex Wilkinson MD [Primary Care Provider] - Within 1 Week Quang Myles DO [Med Staff - Active Staff] - Within 1 Month Disposition Disposition (needs filled in before D/C Order can be placed): Home, Self Care Charges/Coding Visit Charges Inpatient E&M: 53758 Disch Hosp >30min 09/14/24 1105 <Electronically signed by Emerson Sierra MD> Cosigner Signature (if applicable): CC: Dr. Dex Wilkinson MD; Dr. Emerson Sierra MD~ Signed [facility] Work Phone: Evaluation noteNo assessment information available [facility] Work Phone: Evaluation note* Diagnosis Pre-operative examination- [...] echocardiography (MICKI)- [facility] Diagnosis Pre-operative examination- Primary Preoperative [...] examination, unspecified- Primary [facility] Diagnosis Hypertrophic cardiomegaly- Primary Chronic heart failure with preserved ejection fraction (HFpEF) Cardiomyopathy, hypertrophic nonobstructive (Multi) Other primary cardiomyopathies History of pulmonary embolism Personal history of venous thrombosis and embolism Other ascites Atypical chest pain Other chest pain documented in this encounter [facility] Work Phone: Evaluation note* Diagnosis Heart failure, unspecified documented in this encounter [facility] Work Phone: Evaluation note* Diagnosis Acute exacerbation of chronic heart failure- Primary Acute exacerbation of chronic heart failure Systolic congestive heart failure, unspecified HF chronicity Pneumonia of left lower lobe due to infectious organism Other constipation documented in this encounter [facility] Work Phone: Evaluation note* Diagnosis Cardiomyopathy, hypertrophic nonobstructive (Multi) Other primary cardiomyopathies documented in this encounter [facility] Work Phone: Evaluation note* Diagnosis Cardiomyopathy, hypertrophic nonobstructive (Multi) Other primary cardiomyopathies History of pulmonary embolism- Primary Personal history of venous thrombosis and embolism Cardiomyopathy, hypertrophic nonobstructive (Multi) Other primary cardiomyopathies Tobacco use Mild intermittent asthma without complication (HHS-HCC) documented in this encounter [facility] Work Phone: Hospital course Narrative No data available for this section [facility] Hospital Discharge instructions Additional Instructions See your dentist as soon as possible.[facility] Work Phone: Hospital Discharge instructions Additional Instructions Return if feeling worse. Follow-up with your doctor if not improving. All your test tonight were unremarkable.[facility] Work Phone: Hospital Discharge instructions Additional Instructions Please follow-up with cardiology secondary to your hypertrophic obstructive cardiomyopathy and return to the ER should you have any [facility] Work [facility]: Hospital Discharge instructions Additional Instructions You do have some pathology, you do have some ascites, a small right pleural effusion, you need to follow-up outpatient. Return here for worsening symptoms.[facility] Work Phone: Hospital Discharge instructions Additional [...] ibuprofen until 6 PM given you received Toradol.[facility] Work Phone: Hospital Discharge instructionsAdditional Instructions Date [facility]: [facility] Discharge instructionsAmbulatory Orders* DOG GROOMER Location: None Selected [facility] Work Phone: Hospital Discharge instructions* Attachments The following attachments cannot be sent through Care Everywhere. * Heart Failure Discharge Instructions, Adult (Peruvian) [facility] Reason for visit Narrative* Auth/Cert (Routine) Specialty Diagnoses / Procedures Referred By Annalisa santana Referred To Contact [facility] INPATIENT Diagnoses Endocarditis Procedures [id number] [address] [place] [address] Phone: tel: Referral ID Status Reason Start Date Expiration Date Visits Re quested Visits Authorized [id number] 1 1 [facility] for visit Narrative* Cardiovascular (Routine) - Authorized Specialty Diagnoses / Procedures Referred By Annalisa santana Referred To Contact Diagnoses Heart failure, unspecified Procedures ECG 12 lead Radu Kay MD [address] [address] Phone: tel: fax: Referral ID Status Reason Start Date Expiration Date V isits Requested Visits Authorized [id number] Authorized 08/23/2024 08/23/2025 1 1 [facility] Work Phone: Summary Purpose Family History No [...] Will No November 02 10:05pm Power of Floating Operator No November 02 10:05pm Advance Directive Response Recorded Date/ Time Living Will No November 13 4:21pm Power of Floating Operator No November 13, 2021 4:21pm Advance Directive Response Recorded Date/ Time Living Will No December 16 10:45pm Power of Floating Operator No December 16 10:45pm Advance Directive Response Recorded Date/ Time Living Will No March 09 9:21am Power of Floating Operator No March 09, 2022 9:21am Advance Directive Response Recorded Date/ Time Living Will No December 25 9:27pm Power of Floating Operator No December 25, 2022 9:27pm Advance Directive Response Recorded Date/ Time Living Will No July 04, 2023 8:21pm Power of Floating Operator No July 03 8:21pm Advance Directive Response Recorded Date/ Time Living Will No October 31 11:40pm Do you have a Healthcare Power of Floating Operator? No November 01, 2023 11:40pm Living Will No May 12, 2024 1:07am Do you have a Healthcare Power of Floating Operator? No May 12, 2024 1:07am Living Will No July 01, 2024 8:41pm Do you have a Healthcare Power of Floating Operator? No July 01, 2024 8:41pm Advance Directive Response Recorded Date/ Time Living Will No October 31 11:40pm Do you have a Healthcare Power of Floating Operator? No November 01, 2023 11:40pm Living Will No May 12, 2024 1:07am Do you have a Healthcare Power of Floating Operator? No May 12, 2024 1:07am Living Will No July 01, 2024 8:41pm Do you have a Healthcare Power of Floating Operator? No July 01, 2024 8:41pm Do you have a Healthcare Power of Floating Operator? No July 03, 2024 1:43pm Do you have a Healthcare Power of Floating Operator? No July 10, 2024 11:58am Do you have a Healthcare Power of Floating Operator? No July 20, 2024 7:24pm Advance Directive Response Recorded Date/ Time Living Will No October 31 11:40pm Do you have a Healthcare Power of Floating Operator? No November 01, 2023 11:40pm Living Will No May 12, 2024 1:07am Do you have a Healthcare Power of Floating Operator? No May 12, 2024 1:07am Living Will No July 01, 2024 8:41pm Do you have a Healthcare Power of Floating Operator? No July 01, 2024 8:41pm Do you have a Healthcare Power of Floating Operator? No July 03, 2024 1:43pm Do you have a Healthcare Power of Floating Operator? No July 10, 2024 11:58am Do you have a Healthcare Power of Floating Operator? No July 21, 2024 1:00am Date Activated [...] Do you have a Healthcare Power of Floating Operator? No May 12, 2024 1:07am Living Will No July 01, 2024 8:41pm Do you have a Healthcare Power of Floating Operator? No July 01, 2024 8:41pm Do you have a Healthcare Power of Floating Operator? No July 03, 2024 1:43pm Do you have a Healthcare Power of Floating Operator? No July 10, 2024 11:58am Do you have a Healthcare Power of Floating Operator? No July 21, 2024 1:00am Advance Directive Response Recorded Date/ Time Living Will No May 12, 2024 1:07am Do you have a Healthcare Power of Floating Operator? No May 12, 2024 1:07am Living Will No July 01, 2024 8:41pm Do you have a Healthcare Power of Floating Operator? No July 01, 2024 8:41pm Do you have a Healthcare Power of Floating Operator? No July 03, 2024 1:43pm Do you have a Healthcare Power of Floating Operator? No July 10, 2024 11:58am Do you have a Healthcare Power of Floating Operator? No July 21, 2024 1:00am Do you have a Healthcare Power of Floating Operator? No August 11, 2024 10:27am Advance Directive Response Recorded Date/ Time Living Will No May 12, 2024 1:07am Do you have a Healthcare Power of Floating Operator? No May 12, 2024 1:07am Living Will No July 01, 2024 8:41pm Do you have a Healthcare Power of Floating Operator? No July 01, 2024 8:41pm Do you have a Healthcare Power of Floating Operator? No July 03, 2024 1:43pm Do you have a Healthcare Power of Floating Operator? No July 10, 2024 11:58am Do you have a Healthcare Power of Floating Operator? No July 21, 2024 1:00am Do you have a Healthcare Power of Floating Operator? No August 11, 2024 10:27am Do you have a Healthcare Power of Floating Operator? No August 20, 2024 3:00pm Advance Directive Response Recorded Date/ Time Living Will No May 12, 2024 1:07am Do you have a Healthcare Power of Floating Operator? No May 12, 2024 1:07am Living Will No July 01, 2024 8:41pm Do you have a Healthcare Power of Floating Operator? No July 01, 2024 8:41pm Do you have a Healthcare Power of Floating Operator? No July 03, 2024 1:43pm Do you have a Healthcare Power of Floating Operator? No July 10, 2024 11:58am Do you have a Healthcare Power of Floating Operator? No July 21, 2024 1:00am Do you have a Healthcare Power of Floating Operator? No August 11, 2024 10:27am Do you have a Healthcare Power of Floating Operator? No August 20, 2024 6:53pm Advance Directive Response Recorded Date/ Time Living Will No July 01, 2024 8:41pm Do you have a Healthcare Power of Floating Operator? No July 01, 2024 8:41pm Do you have a Healthcare Power of Floating Operator? No July 03, 2024 1:43pm Do you have a Healthcare Power of Floating Operator? No July 10, 2024 11:58am Do you have a Healthcare Power of Floating Operator? No July 21, 2024 1:00am Do you have a Healthcare Power of Floating Operator? No August 11, 2024 10:27am Do you have a Healthcare Power of Floating Operator? No August 20, 2024 6:53pm Do you have a Healthcare Power of Floating Operator? No September 11, 2024 9:31pm Advance Directive Response Recorded Date/ Time Living Will No July 01, 2024 8:41pm Do you have a Healthcare Power of Floating Operator? No July 01, 2024 8:41pm Do you have a Healthcare Power of Floating Operator? No July 03, 2024 1:43pm Do you have a Healthcare Power of Floating Operator? No July 10, 2024 11:58am Do you have a Healthcare Power of Floating Operator? No July 21, 2024 1:00am Do you have a Healthcare Power of Floating Operator? No August 11, 2024 10:27am Do you have a Healthcare Power of Floating Operator? No August 20, 2024 6:53pm Do you have a Healthcare Power of Floating Operator? No September 12, 2024 12:29am Date Activated Date Inactivated Comments 09/21/2024 6:55 AM Question Answer Comments Plan of Care: Code Status Discussion Completed Decision Maker: Patient Date Activated Date Inactivated Comments 09/21/2024 6:55 AM Question Answer Comments Plan of Care: Code Status Discussion Completed Decision Maker: Patient Advance Directive Response Recorded Date/ Time Do you have a Healthcare Power of Floating Operator? No August 11, 2024 10:27am Do you have a Healthcare Power of Floating Operator? No August 20, 2024 6:53pm Do you have a Healthcare Power of Floating Operator? No September 12, 2024 12:29am Do you have a Healthcare Power of Floating Operator? No October 24, 2024 9:44am Chief Complaint and Reason for Visit Chief [...] RUQ PAIN W/ WORSENING LFT'S August 23, 5:25pm RUQ PAIN W/ WORSENING LFT'S August 23 025 8:04pm RUQ PAIN W/ WORSENING LFT'S August 24, 025 1:12pm ABD PAIN August 27, 2024 [...] RUQ PAIN W/ WORSENING LFT'S August 21 5:18pm RUQ PAIN W/ WORSENING LFT'S August 21 5:24pm RUQ PAIN W/ WORSENING LFT'S August 22 12:11pm RUQ PAIN W/ WORSENING LFT'S August 23 5:25pm RUQ PAIN W/ WORSENING LFT'S August 23 8:04pm RUQ PAIN W/ WORSENING LFT'S August 24 1:12pm ABD PAIN August 27, 2024 11:0 0am ABD PAIN August 28, 2024 11:5 1am abd pain September 11, 2024 11:29 pm Chief Complaint Admit Date abdominal pin July [...] 20 7:13pm RUQ PAIN W/ WORSENING LFT'S Norma 10th, 2 025 5:18pm RUQ PAIN W/ WORSENING LFT'S August 21 025 5:24pm RUQ PAIN W/ WORSENING LFT'S August 22, 025 12:11pm RUQ PAIN W/ WORSENING LFT'S August 23 025 5:25pm RUQ PAIN W/ WORSENING LFT'S August 23, 025 8:04pm RUQ PAIN W/ WORSENING LFT'S August 24, 1:12pm ABD PAIN August 27, 2024 11:0 0am ABD PAIN August 28, 2024 11:5 1am INTRACTABLE ABDOMINAL PAIN AFTER RECENT FAILED September 11, 2024 11:43pm INTRACTABLE ABDOMINAL PAIN AFTER RECENT FAILED September 12, 2024 9:58am INTRACTABLE ABDOMINAL PAIN AFTER RECENT FAILED September 12, 2024 6:34pm INTRACTABLE ABDOMINAL PAIN AFTER RECENT FAILED September 13, 2024 12:37pm INTRACTABLE ABDOMINAL PAIN AFTER RECENT FAILED September 14, 2024 11:02am Reason for Visit Admit Date Abdominal pain [...] (gastroesophageal reflux disease) J une 2024 5:47pm Elevated lipase September 11, 2024 11:43 pm History of biliary stent insertion September 11, 2024 11:43pm History of celiac plexus block September 11, 2024 11:43pm History of insertion of pancreatic stent September 11, 2024 11:43pm Intractable abdominal pain September 11 11:43pm Leukocytosis September 11, 2024 11:43 pm Chronic abdominal pain September 11, 2024 11 :43pm Chief Complaint Admit Date abdominal pin July [...] RUQ PAIN W/ WORSENING LFT'S August 24, 025 1:12pm ABD PAIN August 27, 2024 11:0 0am ABD PAIN August 28, 2024 11:5 1am INTRACTABLE ABDOMINAL PAIN AFTER RECENT FAILED September 11, 2024 11:43pm INTRACTABLE ABDOMINAL PAIN AFTER RECENT FAILED September 12, 2024 9:58am INTRACTABLE ABDOMINAL PAIN AFTER RECENT FAILED September 12, 2024 6:34pm INTRACTABLE ABDOMINAL PAIN AFTER RECENT FAILED September 13, 2024 12:37pm INTRACTABLE ABDOMINAL PAIN AFTER RECENT FAILED September 14, 2024 11:02am Hospital September 18, 2024 12:47 pm Reason for Visit Admit Date Abdominal pain [...] 2024 8:24a m GERD (gastroesophageal reflux disease) ay 2024 8:24am Elevated liver enzymes August 20, 2024 5: 47pm Abdominal pain August 20, 2024 5:47p m Dilated pancreatic duct August 20, 2024 5 :47pm GERD (gastroesophageal reflux disease) J une 2024 5:47pm Elevated lipase September 11, 2024 11:43 pm History of biliary stent insertion September 11, 2024 11:43pm History of celiac plexus block September 11, 2024 11:43pm History of insertion of pancreatic stent September 11, 2024 11:43pm Intractable abdominal pain September 11 11:43pm Leukocytosis September 11, 2024 11:43 pm Chronic abdominal pain September 11, 2024 11 :43pm Abnormal uterine bleeding September 18, 2024 12:47pm Chronic abdominal pain September 18, 2024 12 :47pm Chief Complaint Admit Date abdominal pin July [...] ABD PAIN August 28, 2024 11:5 1am INTRACTABLE ABDOMINAL PAIN AFTER RECENT FAILED September 11, 2024 11:43pm INTRACTABLE ABDOMINAL PAIN AFTER RECENT FAILED September 12, 2024 9:58am INTRACTABLE ABDOMINAL PAIN AFTER RECENT FAILED September 12, 2024 6:34pm INTRACTABLE ABDOMINAL PAIN AFTER RECENT FAILED September 13, 2024 12:37pm INTRACTABLE ABDOMINAL PAIN AFTER RECENT FAILED September 14, 2024 11:02am Hospital FU September 18, 2024 12:47 pm 3 mos ICD f/u October 03, 2024 11:2 5am Reason for Visit Admit Date Abdominal pain July 03, 2024 1:0 6pm ICD (implantable cardioverter-defibrilla tor) in place July 04, 2024 11:17am Hypertrophic cardiomyopathy July 04, 2024 11:17am Pacemaker July 04, 2024 11: 17am ICD (implantable cardioverter-defibrilla tor) in place July 10, 2024 1:28pm Hypertrophic cardiomyopathy July 10, 2024 1:28pm Abdominal pain July 12, 2024 9:45am GERD (gastroesophageal reflux disease) M ay 2024 9:45am Hemorrhagic gastritis July 21, 2024 12: 26am HFrEF (heart failure with reduced ejecti on fraction) July 21, 2024 12:26am Pulmonary hypertension July 21, 2024 12 :26am Vegetation of heart valve July 21, 2024 12:26am ICD (implantable cardioverter-defibrilla tor) in place July 21, 2024 12:26am Elevated troponin July 21, 2024 12:26 am Nausea & vomiting July 21, 2024 12:26 am Abdominal pain July 21, 2024 12:26 am Acute systolic congestive heart failure, NYHA class 3 July 21, 2024 12:26am History of hypertrophic cardiomyopathy M ay 2024 12:26am Hypertension July 21, 2024 12:26 am Hypertrophic cardiomyopathy July 21 12:26am Leukocytosis July 21, 2024 12:26 am [...] (gastroesophageal reflux disease) J une 2024 5:47pm Elevated lipase September 11, 2024 11:43 pm History of biliary stent insertion September 11, 2024 11:43pm History of celiac plexus block September 11, 2024 11:43pm History of insertion of pancreatic stent September 11, 2024 11:43pm Intractable abdominal pain September 11 11:43pm Chronic abdominal pain September 11, 2024 11 :43pm Leukocytosis September 11, 2024 11:43 pm Abnormal uterine bleeding September 18, 2024 12:47pm S/P ERCP September 18, 2024 12:47 pm Chronic abdominal pain September 18, 2024 12 :47pm HFrEF (heart failure with reduced ejecti on fraction) October 03, 2024 11:25am ICD (implantable cardioverter-defibrilla tor) in place October 03, 2024 11:25am Chief Complaint Admit Date abdominal pin July [...] RUQ PAIN W/ WORSENING LFT'S August 23, 5:25pm RUQ PAIN W/ WORSENING LFT'S August 23, 025 8:04pm RUQ PAIN W/ WORSENING LFT'S August 24, 025 1:12pm ABD PAIN August 27, 2024 11:0 0am ABD PAIN August 28, 2024 11:5 1am INTRACTABLE ABDOMINAL PAIN AFTER RECENT FAILED September 11, 2024 11:43pm INTRACTABLE ABDOMINAL PAIN AFTER RECENT FAILED September 12, 2024 9:58am INTRACTABLE ABDOMINAL PAIN AFTER RECENT FAILED September 12, 2024 6:34pm INTRACTABLE ABDOMINAL PAIN AFTER RECENT FAILED September 13, 2024 12:37pm INTRACTABLE ABDOMINAL PAIN AFTER RECENT FAILED September 14, 2024 11:02am Hospital FU September 18, 2024 12:47 pm 3 mos ICD f/u October 03, 2024 11:2 5am HF October 17, 2024 3:1 7pm Chief Complaint Admit Date abdominal pin July [...] RUQ PAIN W/ WORSENING LFT'S August 24, 025 1:12pm ABD PAIN August 27, 2024 11:0 0am ABD PAIN August 28, 2024 11:5 1am INTRACTABLE ABDOMINAL PAIN AFTER RECENT FAILED September 11, 2024 11:43pm INTRACTABLE ABDOMINAL PAIN AFTER RECENT FAILED September 12, 2024 9:58am INTRACTABLE ABDOMINAL PAIN AFTER RECENT FAILED September 12, 2024 6:34pm INTRACTABLE ABDOMINAL PAIN AFTER RECENT FAILED September 13, 2024 12:37pm INTRACTABLE ABDOMINAL PAIN AFTER RECENT FAILED September 14, 2024 11:02am Hospital September 18, 2024 12:47 pm Pacer Check Remote October 03, 2024 9:00 am 3 mos ICD f/u October 03, 2024 11:2 5am HF October 17, 2024 3:1 7pm Reason for Visit Admit Date Abdominal pain July 03, 2024 1:0 6pm ICD (implantable cardioverter-defibrilla tor) in place July 04, 2024 11:17am Hypertrophic cardiomyopathy July 04, 2024 11:17am Pacemaker July 04, 2024 11: 17am ICD (implantable cardioverter-defibrilla tor) in place July 10, 2024 1:28pm Hypertrophic cardiomyopathy July 10, 2024 1:28pm Abdominal pain July 12, 2024 9:45am GERD (gastroesophageal reflux disease) M 2024 9:45am Hemorrhagic gastritis July 21, 2024 12: 26am HFrEF (heart failure with reduced ejecti on fraction) July 21, 2024 12:26am Pulmonary hypertension July 21, 2024 12 :26am Vegetation of heart valve July 21, 2024 12:26am ICD (implantable cardioverter-defibrilla tor) in place July 21, 2024 12:26am Elevated troponin July 21, 2024 12:26 am Nausea & vomiting July 21, 2024 12:26 am Abdominal pain July 21, 2024 12:26 am Acute systolic congestive heart failure, NYHA class 3 July 21, 2024 12:26am History of hypertrophic cardiomyopathy M 2024 12:26am Hypertension July 21, 2024 12:26 am Hypertrophic cardiomyopathy July 21 12:26am Leukocytosis July 21, 2024 12:26 am [...] 2024 8:24a m GERD (gastroesophageal reflux disease) [facility] 2024 8:24am Elevated liver enzymes August 20, 2024 5: 47pm Abdominal pain August 20, 2024 5:47p m Dilated pancreatic duct August 20, 2024 5 :47pm GERD (gastroesophageal reflux disease) [facility] 2024 5:47pm Elevated lipase September 11, 2024 11:43 pm History of biliary stent insertion September 11, 2024 11:43pm History of celiac plexus block September 11, 2024 11:43pm History of insertion of pancreatic stent September 11, 2024 11:43pm Intractable abdominal pain September 11 11:43pm Chronic abdominal pain September 11, 2024 11 :43pm Leukocytosis September 11, 2024 11:43 pm Abnormal uterine bleeding September 18, 2024 12:47pm S/P ERCP September 18, 2024 12:47 pm Chronic abdominal pain September 18, 2024 12 :47pm HFrEF (heart failure with reduced ejecti on fraction) October 03, 2024 11:25am ICD (implantable cardioverter-defibrilla tor) in place October 03, 2024 11:25am HFrEF (heart failure with reduced ejecti on fraction) October 17, 2024 3:17pm Pulmonary hypertension October 17, 2024 3:17pm ICD (implantable cardioverter-defibrilla tor) in place October 17, 2024 3:17pm Chief Complaint Admit Date Test Result August 08, 2024 8:24a m INT LABS August 08, 2024 9:26a m INT LABSPEC August 09, 2024 10:23 am flank August 11, 2024 10:26 am RUQ PAIN W/ WORSENING LFT'S August 20 5:47pm RUQ PAIN W/ WORSENING LFT'S August 20 7:13pm RUQ PAIN W/ WORSENING LFT'S August 21, 2 025 5:18pm RUQ PAIN W/ WORSENING LFT'S [...] ABD PAIN August 28, 2024 11:5 1am INTRACTABLE ABDOMINAL PAIN AFTER RECENT FAILED September 11, 2024 11:43pm INTRACTABLE ABDOMINAL PAIN AFTER RECENT FAILED September 12, 2024 9:58am INTRACTABLE ABDOMINAL PAIN AFTER RECENT FAILED September 12, 2024 6:34pm INTRACTABLE ABDOMINAL PAIN AFTER RECENT FAILED September 13, 2024 12:37pm INTRACTABLE ABDOMINAL PAIN AFTER RECENT FAILED September 14, 2024 11:02am Hospital FU September 18, 2024 12:47 pm Pacer Check Remote October 03, 2024 9:00 am 3 mos ICD f/u October 03, 2024 11:2 5am HF October 17, 2024 3:1 7pm Reason for Visit Admit Date Diarrhea August 08, 2024 8:24a m Pulmonary hypertension August 08, 2024 8: 24am Abdominal pain August 08, 2024 8:24a m GERD (gastroesophageal reflux disease) M ay 2024 8:24am Elevated liver enzymes August 20, 2024 5: 47pm Abdominal pain August 20, 2024 5:47p m Dilated pancreatic duct August 20, 2024 5 :47pm GERD (gastroesophageal reflux disease) J une 2024 5:47pm Elevated lipase September 11, 2024 11:43 pm History of biliary stent insertion September 11, 2024 11:43pm History of celiac plexus block September 11, 2024 11:43pm History of insertion of pancreatic stent September 11, 2024 11:43pm Intractable abdominal pain September 11 11:43pm Chronic abdominal pain September 11, 2024 11 :43pm Leukocytosis September 11, 2024 11:43 pm Abnormal uterine bleeding September 18, 2024 12:47pm S/P ERCP September 18, 2024 12:47 pm Chronic abdominal pain September 18, 2024 12 :47pm HFrEF (heart failure with reduced ejecti on fraction) October 03, 2024 11:25am ICD (implantable cardioverter-defibrilla tor) in place October 03, 2024 11:25am HFrEF (heart failure with reduced ejecti on fraction) October 17, 2024 3:17pm Pulmonary hypertension October 17, 2024 3:17pm ICD (implantable cardioverter-defibrilla tor) in place October 17, 2024 3:17pm Choledocholithiasis November 23, 2024 12:12pm History of biliary stent insertion Septe [id number] 12:12pm S/P ERCP November 23, 2024 12:12pm Additional Source Comments INFORMATION SOURCE (unrecogn ized section and content) DATE CREATED AUTHOR 08/27/2017 [facility] DATE CREATED AUTHOR AUTHOR'S ORGANIZ ATION 08/29/2017 [facility] DATE CREATED AUTHOR AUTHOR'S ORGANIZ ATION 03/22/2020 [employer] DATE CREATED AUTHOR AUTHOR'S ORGANIZ ATION 03/23/2020 [facility] DATE CREATED AUTHOR AUTHOR'S ORGANIZ ATION 04/17/2020 [facility] DATE CREATED AUTHOR AUTHOR'S ORGANIZ ATION 11/04/2020 [facility] DATE CREATED AUTHOR AUTHOR'S ORGANIZ ATION 04/28/2021 [facility] DATE CREATED AUTHOR AUTHOR'S ORGANIZ ATION 11/12/2023 [facility] ([place] DATE CREATED AUTHOR AUTHOR'S ORGANIZ ATION 01/07/2024 [facility] DATE CREATED AUTHOR AUTHOR'S ORGANIZ ATION 07/16/2024 [facility] DATE CREATED AUTHOR AUTHOR'S ORGANIZ ATION 08/12/2024 [facility] DATE CREATED AUTHOR AUTHOR'S ORGANIZ ATION 08/27/2024 [facility] DATE CREATED AUTHOR AUTHOR'S ORGANIZ ATION 09/25/2024 [facility] DATE CREATED AUTHOR AUTHOR'S ORGANIZ ATION 10/14/2024 [facility] DATE CREATED AUTHOR AUTHOR'S ORGANIZ ATION 11/02/2024 [facility] DATE CREATED AUTHOR AUTHOR'S ORGANIZ ATION 11/23/2024 [facility] DATE CREATED AUTHOR AUTHOR'S ORGANIZ ATION 11/23/2024 [facility] Goals (unrecognized section and content) Goals [...] Active Rubin Briggs MD Emergency Provider Active Stone Decorator Relationship Specialty Start Date End Date Dex Wilkinson MD [facility] [phone] PCP - General Family Medicine 07/01/24 Team [...] 21, 2024 End: July 24, 2024 Dr. aSrita Flores MD Other Provider Active Start: July 21, 2024 End: July 24, 2024 Dr. Vincent Hdz MD Other Provider Active S tart: July 21, 2024 End: July 24, 2024 Dr. Cliff Car MD Other Provider Active Start: July 21, 2024 End: July 24, 2024 Bogdan Bates HEAD NURSE, HEAD NURSE-C Other Provider Active Start : July 21, [...] Active Start: July 21, 2024 Bogdan Bates HEAD NURSE, HEAD NURSE-C Other Provider Active Start : July 21, 2024 Xochitl BUCKLEY, PA Other Provider Active [...] Active Start: July 21, 2024 Dr. Carlos Korey , DO Emergency [...] Active Start: July 21, 2024 Bogdan Bates HEAD NURSE, HEAD NURSE-C Other Provider Active Start : July 21, [...] Active Start: July 22, 2024 Bogdan Bates HEAD NURSE, HEAD NURSE-C Other Provider Active Start : July 22, [...] Active Start: July 22, 2024 Bogdan Bates HEAD NURSE, HEAD NURSE-C Other Provider Active Start : July 22, [...] Active Start: July 23, 2024 Bogdan Bates HEAD NURSE, HEAD NURSE-C Other Provider Active Start : July 23, [...] Active Start: July 23, 2024 Bogdan Bates HEAD NURSE, HEAD NURSE-C Other Provider Active Start : July 23, 2024 Xochitl BUCKLEY, PA Other Provider Active Start: July 23, 2024 MARCIO Lemus Other Provider Active Start: July 23, 2024 Dr. Willian Ovalles , DO Other [...] Active Start: July 24, 2024 Bogdan Bates HEAD NURSE, HEAD NURSE-C Other Provider Active Start : July 24, 2024 Xochitl BUCKLEY, PA Other Provider Active Start: July 24, 2024 MARCIO Lemus Other Provider Active Start: July 24, 2024 Dr. Willian Ovalles DO Attending Provider Active Start: July 24, 2024 Dr. Willian Ovalles DO Other Provider Active Star t: July 24, 2024 Stone Decorator Relationship Specialty Start Date End Date Dxe Wilkinson MD [facility] [place] [address] PCP - General 10/19/06 Asuncion Cheung, senior solutions workflow consultant Coordinator 05/14/14 Stone Decorator Relationship Specialty Start Date End Date Dex Wilkinson MD [address] [address] PCP - General 10/19/06 Asuncion Cheung, senior solutions workflow consultant Coordinator 05/14/14 Stone Decorator Relationship Specialty Start Date End Date Dex Wilkinson MD [address] [address] PCP - General 10/19/06 Asuncion Cheung, senior solutions workflow consultant Coordinator 05/14/14 Team Status: Active Member Role [...] August 08, 2024 End: August 08, 2024 Stone Decorator Relationship Specialty Start Date End Date Dex Wilkinson MD [address] [phone] PCP - General Family Medicine 07/01/24 Team [...] August 08, 2024 End: August 08, 2024 Stone Decorator Relationship Specialty Start Date End Date Dex Wilkinson MD [address] [place] [phone] PCP - General Family Medicine 08/15/24 [...] August 20, 2024 Dr. Simona Fernandez , DO Emergency Provider Active Start: August 20, 2024 Dr. Lopez Larios DO Admit Provider Active Start: August 20, 2024 Dr. Lopez Larios DO Attending Provider Active Start: August 20, 2024 Stone Decorator Relationship Specialty Start Date End Date Dex Wilkinson MD [facility] [facility] [address] [place] [phone] PCP - General Family Medicine 08/15/24 Team Status: Inactive Member Role Status Dates Dr. Dex Wilkinson MD Primary Care Provider Active Start: August 20, 2024 End: August 24, 2024 Dr. Simona Fernandez , Emergency Provider [...] art: August 21, 2024 Dr. Quang Myles , Attending Provider Active Start: August 21, 2024 [...] Active Start: August 28, 2024 Dr. Quang yMles DO Referring Provider Active Start: August 28, [...] Active Start: August 21, 2024 Dr. Simona Fernanedz DO Emergency Provider Active Start: August 21, [...] 2024 End: July 24, 2024 Bogdan Bates HEAD NURSE, HEAD NURSE-C Other Provider Active Start : July 21, 2024 End: July 24, 2024 Xochitl Bourne PA, PA Other Provider Active Start: July 21, 2024 End: July 24, 2024 MARCIO eLmus Other Provider Active Start: July 21, 2024 [...] Active Start: July 21, 2024 Bogdan Bates HEAD NURSE, HEAD NURSE-C Other Provider Active Start : July 21, [...] Active Start: July 21, 2024 Bogdan Bates HEAD NURSE, HEAD NURSE-C Other Provider Active Start : July 21, [...] Active Start: July 22, 2024 Bogdan Bates HEAD NURSE, HEAD NURSE-C Other Provider Active Start : July 22, [...] Active Start: July 22, 2024 Bogdan Bates HEAD NURSE, HEAD NURSE-C Other Provider Active Start : July 22, [...] Active Start: July 23, 2024 Bogdan Bates HEAD NURSE, HEAD NURSE-C Other Provider Active Start : July 23, [...] Active St art: July 23, 2024 Dr. aSman Clay MD Other Provider Active Star t: [...] Active Start: July 23, 2024 Bogdan Bates HEAD NURSE, HEAD NURSE-C Other Provider Active Start : July 23, [...] Active Start: July 24, 2024 Bogdan Bates HEAD NURSE, HEAD NURSE-C Other Provider Active Start : July 24, [...] Start: September 11, 2024 Dr. Sergio Umaña DO Admit Provider Active Start: September 11, 2024 Dr. Sergio Umaña , DO Attending Provider Active Start: September 11, 2024 Team Status: Inactive Member Role/Relationship Status Dates Dr. Dex Wilkinson MD Primary Care Provider Active Start: September 11, 2024 End: September 14, 2024 Dr. Gage Sharma DO Emergency Provider Activ e Start: September 11, 2024 End: September 14, 2024 Dr. Sergio Umaña DO Admit Provider Active Start: September 11, 2024 End: September 14, 2024 Dr. Sergio Umaña DO Other Provider Active Start: September 11, 2024 End: September 14, 2024 Dr. Emerson Sierra MD Attending Provider Active Start: September 11, 2024 End: September 14, 2024 Team Status: Active Member Role/Relationship Status Dates Dr. Dex Wilkinson MD Primary Care Provider Active Start: September 12, 2024 Dr. Gage Sharma DO Emergency Provider Activ e Start: September 12, 2024 Dr. Sergio Umaña DO Admit Provider Active Start: September 12, 2024 Dr. Sergio Umaña DO Other Provider Active Start: September 12, 2024 Dr. Emerson Sierra MD Attending Provider Active Start: September 12, 2024 Dr. Emerson Sierra MD Other Provider Active Sta rt: September 12, 2024 Team Status: Active Member Role/Relationship Status Dates Dr. Dex Wilkinson MD Primary Care Provider Active Start: September 12, 2024 Dr. Gage Sharma DO Emergency Provider Activ e Start: September 12, 2024 Dr. Sergio Umaña DO Admit Provider Active Start: September 12, 2024 Dr. Sergio Umaña DO Other Provider Active Start: September 12, 2024 Dr. Emerson Sierra MD Other Provider Active Sta rt: September 12, 2024 Dr. Quang Myles , Attending Provider Active Start: September 12, 2024 Team Status: Active Member Role/Relationship Status Dates Dr. Dex Wilkinson MD Primary Care Provider Active Start: September 13, 2024 Dr. Gage Sharma DO Emergency Provider Activ e Start: September 13, 2024 Dr. Sergio de Koby , DO Admit Provider Active Start: September 13, 2024 Dr. Sergio Umaña , DO Other Provider Active Start: September 13, 2024 Dr. Emerson Sierra MD Attending Provider Active Start: September 13, 2024 Dr. Emerson Sierra MD Other Provider Active Sta rt: September 13, 2024 Team Status: Active Member Role/Relationship Status Dates Dr. Dex Wilkinson MD Primary Care Provider Active Start: September 14, 2024 Dr. Gage Sharma , DO Emergency Provider Activ e Start: September 14, 2024 Dr. Sergio Umaña , DO Admit Provider Active Start: September 14, 2024 Dr. Sergio Umaña , DO Other Provider Active Start: September 14, 2024 Dr. Emerson Sierra MD Attending Provider Active Start: September 14, 2024 Dr. Emerson Sierra MD Other Provider Active Sta rt: September 14, 2024 Team Status: Inactive Member Role/Relationship Status Dates Dr. Dex Wilkinson MD Primary Care Provider Active Start: September 18, 2024 End: September 18, 2024 Dr. Dex Wilkinson MD Referring Provider Active Start: September 18, 2024 End: September 18, 2024 MARCIO Camp Attending Provider Active Start: September 18, 2024 End: September 18, 2024 Stone Decorator Relationship Specialty Start Date End Date Dex Wilkinson MD [address] [phone] PCP - General Family Medicine 08/15/24 Stone Decorator Relationship Specialty Start Date End Date Dex Wilkinson MD [address] [phone] PCP - General Family Medicine 08/15/24 Team Status: Active Member Role/Relationship Status Dates Dr. Dex Wilkinson MD Primary Care Provider Active Start: September 12, 2024 Dr. Gage Sharma , DO Emergency Provider Activ e Start: September 12, 2024 Dr. Sergio Umaña , DO Admit Provider Active Start: September 12, 2024 Dr. Sergio Umaña , Other Provider Active Start: September 12, 2024 Dr. Emerson Sierra MD Referring Provider Active Start: September 12, 2024 Dr. Emerson Sierra MD Other Provider Active Sta rt: September 12, 2024 Dr. Quang Myles DO Attending Provider Active Start: September 12, 2024 Team Status: Inactive Member Role/Relationship Status Dates Dr. Dex Wilkinson MD Primary Care Provider Active Start: October 03, 2024 End: October 03, 2024 Dr. Dex Wilkinson MD Referring Provider Active Start: October 03, 2024 End: October 03, 2024 Sujatha Olea Attending Provider Active Start: J 2024 End: October 03, 2024 Team Status: Inactive Member Role/Relationship Status Dates Dr. Dex Wilkinson MD Primary Care Provider Active Start: October 17, 2024 End: October 17, 2024 Dr. Dex Wilkinson MD Referring Provider Active Start: October 17, 2024 End: October 17, 2024 Dr. Mercy Bishop MD Attending Provider Active Start: October 17, 2024 End: October 17, 2024 Team Status: Inactive Member Role/Relationship Status Dates Dr. Dex Wilkinson MD Primary Care Provider Active Start: October 03, 2024 End: October 03, 2024 Dr. Jose Francisco Santamaria MD Attending Provider Active S tart: October 03, 2024 End: October 03, 2024 Team Status: Inactive Member Role/Relationship Status Dates Dr. Dex Wilkinson MD Primary Care Provider Active Start: October 03, 2024 End: October 03, 2024 Dr. Dex Wilkinson MD Referring Provider Active Start: October 03, 2024 End: October 03, 2024 Sujatha Olea Attending Provider Active Start: J 2024 End: October 03, 2024 Team Status: Inactive Member Role/Relationship Status Dates Dr. Dex Wilkinson MD Primary Care Provider Active Start: October 17, 2024 End: October 17, 2024 Dr. Dex Wilkinson MD Referring Provider Active Start: October 17, 2024 End: October 17, 2024 Dr. Mercy Bishop MD Attending Provider Active Start: October 17, 2024 End: October 17, 2024 Stone Decorator Relationship Specialty Start Date End Date Dex Wilkinson MD [facility] [phone] PCP - General Family Medicine 08/15/24 Team Status: Inactive Member Role/Relationship Status Dates [...] End: August 24, 2024 Dr. Simona Fernandez , Emergency Provider Active Start: August 20, 2024 End: August 24, 2024 Dr. Lopez Larios , DO Admit Provider Active Start: August 20, [...] Active Start: August 21, 2024 Dr. Taylor Tejdea MD Attending Provider Active Start: August 21, [...] August 22, 2024 Dr. Lopez Larios , Admit Provider Active Start: August 22, 2024 [...] Active Member Role/Relationship Status Dates Dr. Dex Wilknison MD Primary Care Provider Active Start: August [...] 2024 End: August 28, 2024 Team Status: Inactive Member Role/Relationship Status Dates Dr. Dex Wilkinson MD Primary Care Provider Active Start: September 11, 2024 End: September 14, 2024 Dr. Gage Sharma DO Emergency Provider Activ e Start: September 11, 2024 End: September 14, 2024 Dr. Sergio Umaña DO Admit Provider Active Start: September 11, 2024 End: September 14, 2024 Dr. Sergio Umaña DO Other Provider Active Start: September 11, 2024 End: September 14, 2024 Dr. Emerson Sierra MD Attending Provider Active Start: September 11, 2024 End: September 14, 2024 Team Status: Active Member Role/Relationship Status Dates Dr. Dex Wilkinson MD Primary Care Provider Active Start: September 12, 2024 Dr. Gage Sharma DO Emergency Provider Activ e Start: September 12, 2024 Dr. Sergio Umaña DO Admit Provider Active Start: September 12, 2024 Dr. Sergio Umaña DO Other Provider Active Start: September 12, 2024 Dr. Emerson Sierra MD Attending Provider Active Start: September 12, 2024 Dr. Emerson Sierra MD Other Provider Active Sta rt: September 12, 2024 Team Status: Active Member Role/Relationship Status Dates Dr. Dex Wilkinson MD Primary Care Provider Active Start: September 12, 2024 DrGrace Sharma DO Emergency Provider Activ e Start: September 12, 2024 Dr. Sergio Umaña , DO Admit Provider Active Start: September 12, 2024 Dr. Sergio Umaña DO Other Provider Active Start: September 12, 2024 Dr. Emerson Sierra MD Referring Provider Active Start: September 12, 2024 Dr. Emerson Sierra MD Other Provider Active Sta rt: September 12, 2024 Dr. Quang Myles DO Attending Provider Active Start: September 12, 2024 Team Status: Active Member Role/Relationship Status Dates Dr. Dex Wilkinson MD Primary Care Provider Active Start: September 13, 2024 Dr. Gage Sharma DO Emergency Provider Activ e Start: September 13, 2024 Dr. Sergio Umaña DO Admit Provider Active Start: September 13, 2024 Dr. Sergio Umaña DO Other Provider Active Start: September 13, 2024 Dr. Emerson Sierra MD Attending Provider Active Start: September 13, 2024 Dr. Emerson Sierra MD Other Provider Active Sta rt: September 13, 2024 Team Status: Active Member Role/Relationship Status Dates Dr. Dex Wilkinson MD Primary Care Provider Active Start: September 14, 2024 Dr. Gage Sharma DO Emergency Provider Activ e Start: September 14, 2024 Dr. Sergio Umaña DO Admit Provider Active Start: September 14, 2024 Dr. Sergio Umaña DO Other Provider Active Start: September 14, 2024 Dr. Emerson Sierra MD Attending Provider Active Start: September 14, 2024 Dr. Emerson Sierra MD Other Provider Active Sta rt: September 14, 2024 Team Status: Inactive Member Role/Relationship Status Dates Dr. Dex Wilkinson MD Primary Care Provider Active Start: September 18, 2024 End: September 18, 2024 Dr. Dex Wilkinson MD Referring Provider Active Start: September 18, 2024 End: September 18, 2024 MARCIO Camp Attending Provider Active Start: September 18, 2024 End: September 18, 2024 Team Status: Inactive Member Role/Relationship Status Dates Dr. Dex Wilkinson MD Primary Care Provider Active Start: October 03, 2024 End: October 03, 2024 Dr. Jose Francisco Santamaria MD Attending Provider Active S tart: October 03, 2024 End: October 03, 2024 Team Status: Inactive Member Role/Relationship Status Dates Dr. Dex Wilkinson MD Primary Care Provider Active Start: October 03, 2024 End: October 03, 2024 Dr. Dex Wilkinson MD Referring Provider Active Start: October 03, 2024 End: October 03, 2024 Sujatha Olea Attending Provider Active Start: Angelo bosch 2024 End: October 03, 2024 Team Status: Inactive Member Role/Relationship Status Dates Dr. Dex Wilkinson MD Primary Care Provider Active Start: October 17, 2024 End: October 17, 2024 Dr. Dex Wilkinson MD Referring Provider Active Start: October 17, 2024 End: October 17, 2024 Dr. Mercy Bishop MD Attending Provider Active Start: October 17, 2024 End: October 17, 2024 Team Status: Inactive Member Role/Relationship Status Dates Dr. Dex Wilkinson MD Primary Care Provider Active Start: November 23, 2024 End: November 23, 2024 Dr. Dex Wilkinson MD Referring Provider Active Start: November 23, 2024 End: November 23, 2024 Dr. Quang Myles DO Attending Provider Active Start: November 23, 2024 End: November 23, 2024 Team Status: Active Member Role/Relationship Status Dates Dr. Dex Wilkinson MD Primary Care Provider Active Start: November 23, 2024 Dr. Dex Wilkinson MD Referring Provider Active Start: November 23, 2024 Dr. Quang Myles DO Attending Provider Active Start: November 23, 2024 Dr. Quang Myles DO Other Provider Active St art: November 23, 2024 Reason for Visit (unrecogniz ed section and content) Reason Onset Date Comments Shortness of Breath 07/04/2023 Reason Onset Date Comments Abdominal Pain 07/01/2024 Reason Comments Spirometry Specialty Diagnoses / Procedures Referred By Contac t Referred To Contact HOSP INPATIENT Diagnoses Endocarditis Procedures [id number] [address] [place] [address] Phone: tel: Referral ID Status Reason Start Date Expiration Date Visits Re quested Visits Authorized [id number] 1 1 Reason Onset Date Comments Transition Of Care 07/30/2024 TCM Pharmacy- Hospital discharge 07/27/24 Reason Onset Date Comments Back Pain 08/10/2024 Reason Comments Abdominal Pain Pt states she starte d gaining water weight on Tuesday, was put Lasix Tuesday, she has gained 10lbs since Tuesday. Mid abd pain worse since this AM. Hx of cardiomyopathy, liver disease, and pancreatitis. Sees [facility] in [facility] and was told to come to ED if she does not drop any weight. C/o Sob with activity since yesterday Reason Comments Congestive Heart Failure Specialty Diagnoses / Procedures Referred By Contac t Referred To Contact Pharmacy Diagnoses Cardiomyopathy, hypertrophic nonobstructive (Multi) Eliza, Radu Stephens MD [address] [facility] [address] [place] [address] Phone: tel: fax: Referral ID Status Reason Start Date Expiration Date Visits Requested Visits Authorized [id number] Authorized Specialty Services Required 09/19/2024 09/19/2025 1 1 Source Comments (unrecognize d section and content) In the event this informatio n is protected by the Federal Confidentiality of Alcohol and Drug Abuse Patient Records regulations: The Federal rules restrict any use of the information to criminally investigate or prosecute any alcohol or drug abuse patient.[facility] SystemIn the event this information is protected by the Federal Confidentiality of Alcohol and Drug Abuse Patient Records regulations: The Federal rules restrict any use of the information to criminally investigate or prosecute any alcohol or drug abuse patient.[facility]In the event this information is protected by the Federal Confidentiality of Alcohol and Drug Abuse Patient Records regulations: The Federal rules restrict any use of the information to criminally investigate or prosecute any alcohol or drug abuse patient.[facility]In the event this information is protected by the Federal Confidentiality of Alcohol and Drug Abuse Patient Records regulations: The Federal rules restrict any use of the information to criminally investigate or prosecute any alcohol or drug abuse patient.[facility] Scheduled Active and Recently Administ ered Medications (unrecognized section and content) Medication Order 09/21/2024 09/22/2024 09/23/2024 ALPRAZolam (Xanax) tablet 0.5 mg 0.5 mg, oral, 2 times daily, First dose on Tue09/21/24 at 2100 2132 (Given - Provider: Bethany Little RN) 0824 (Given - Provider: Kaela Trejo RN)2045 (Given - Provider: Anisha Sheldon RN) 08 (Given - Provider: Kaela Trejo RN)2099 (Due) doxycycline (Vibra-Tabs) tablet 100 mg 100 mg, oral, Every 12 hours scheduled, First dose on 09/22/24 at 2100, Administer with meals to decrease GI upset; take with at least 8 ounces (large glass) of water, do not lie down for 30 minutes after., Suspected Indication (Select all that apply): Pneumonia, Type of Therapy: Empiric, Indications: Pneumonia 2045 (Given - Provider: Anisha Sheldon RN) 0831 (Given - Provider: Kaela Trejo RN)2099 (Due) empagliflozin (Jardiance) tablet 10 mg 10 mg, oral, Daily, First dose on Tue09/21/24 at 0900, Please hold this med 72 hours prior to an NPO event in duration of 12 hours or more. 0914 (Given - Provider: Alexa Brown RN) 0824 (Given - Provider: Kaela Trejo RN) 0830 (Given - Provider: Kaela Trejo RN) enoxaparin (Lovenox) syringe 40 mg 40 mg, subcutaneous, Daily, First dose on 09/22/24 at 1200 1224 (Given - Provider: Kaela Trejo RN) 0831 (Given - Provider: Kaela Trejo RN) furosemide (Lasix) injection 40 mg (COMPLETED) 40 mg, intravenous, Once, On Tue09/21/24 at 0105, For 1 dose 0137 (Given - Provider: Fe Esparza RN) furosemide (Lasix) injection 40 mg 40 mg, intravenous, Every 12 hours, First dose on Tue09/21/24 at 1000 0914 (Given - Provider: Alexa Brown RN)2132 (Given - Provider: Bethany Little RN - Comment: 129/77) 1030 (Given - Provider: Kaela Trejo, YESENIA)2047 (Given - Provider: Anisha Sheldon, YESENIA) 0952 (Given - Provider: Kaela Trejo, YESENIA)2200 (Due) HYDROmorphone (Dilaudid) injection 0.5 mg (COMPLETED) 0.5 mg, intravenous, Once, On Tue09/21/24 at 0000, For 1 dose 0011 (Given - Provider: Fe Esparza, YESENIA) HYDROmorphone (Dilaudid) injection 0.5 mg (COMPLETED) 0.5 mg, intravenous, Once, On Tue09/21/24 at 0240, For 1 dose 0239 (Given - Provider: Fe Esparza, EYSENIA) HYDROmorphone (Dilaudid) injection 0.5 mg (COMPLETED) 0.5 mg, intravenous, Once, On Tue09/22/24 at 2115, For 1 dose 205 (Given - Provider: Anisha Sheldon, YESENIA) iohexol (OMNIPaque) 350 mg iodine/mL solution 68 mL (COMPLETED) 68 mL, intravenous, Once in imaging, Starting on Tue09/21/24 at 0109, For 1 dose 0132 (Given - Provider: Asuncion Villa) ketorolac (Toradol) injection 15 mg (COMPLETED) 15 mg, intravenous, Once, On 09/22/24 at 1530, For 1 dose 1518 (Given - Provider: Kaela Trejo RN) magnesium oxide (Mag-Ox) 400 mg (241.3 mg elemental) tablet 1 tablet 1 tablet (400 mg of magnesium oxide), oral, Daily, First dose on Tue09/21/24 at 0900 0802 (Given - Provider: Alexa Brown RN) 0824 (Given - Provider: Kaela Trejo RN) 0831 (Given - Provider: Kaela Trejo, YESENIA) metoprolol succinate XL (Toprol-XL) 24 hr tablet 25 mg 25 mg, oral, Daily, First dose on 09/22/24 at 1530, Do not crush or chew. 1605 (Given - Provider: Kaela Trejo RN) 0830 (Given - Provider: Kaela Trejo RN) ondansetron (Zofran) injection 4 mg (COMPLETED) 4 mg, intravenous, Once, On Tue09/21/24 at 0000, For 1 dose, When administering via IV Push, administer over 3-5 minutes. 0011 (Given - Provider: Fe Esparza RN) pantoprazole (ProtoNix) EC tablet 40 mg 40 mg, oral, Daily before breakfast, First dose on Tue09/21/24 at 0715, Do not crush, chew, or split. 0802 (Given - Provider: Alexa Brown RN) 0747 (Given - Provider: Kaela Trejo RN) 0604 (Given - Provider: Anisha Sheldon, YESENIA) sennosides-docusate sodium (Pia-Colace) 8.6-50 mg per tablet 1 tablet 1 tablet, oral, Nightly, First dose on 09/22/24 at 2100 2045 (Given - Provider: Anisha Sheldon, RN) 2099 (Due) sucralfate (Carafate) tablet 1 g 1 g, oral, 2 times daily, First dose on Tue09/21/24 at 0900, Give on an empty stomach (1 hr before meals, at bedtime). Separate all other meds by at least 2 hours (exception: antacids may be given only 30 minutes apart). 08 (Given - Provider: Alexa Brown, YESENIA)2018 (Given - Provider: Bethany Little, RN) 08 (Given - Provider: Kaela Trejo, RN)2045 (Given - Provider: Anisha Sheldon RN) 08 (Given - Provider: Kaela Trejo, RN)2100 (Due) PRN Medication Order 09/21/2024 09/22/2024 09/23/2024 acetaminophen (Tylenol) oral liquid 650 mg(Linked Group 1) 650 mg, oral, Every 4 hours PRN, pain mild (1-3), first line, Starting on Tue09/21/24 at 0654, Give oral liquid per feeding tube if present. acetaminophen (Tylenol) suppository 650 mg(Linked Group 1) 650 mg, rectal, Every 4 hours PRN, pain mild (1-3), first line, Starting on Tue09/21/24 at 0654, Give rectally if unable to administer by mouth or feeding tube., If ordered PRN for pain, nurse is permitted to administer this medication for higher pain scores based on patient preference? Yes acetaminophen (Tylenol) tablet 650 mg(Linked Group 1) 650 mg, oral, Every 4 hours PRN, pain mild (1-3), first line, Starting on Tue09/21/24 at 0654, If ordered PRN for pain, nurse is permitted to administer this medication for higher pain scores based on patient preference? Yes HYDROmorphone (Dilaudid) injection 0.2 mg 0.2 mg, intravenous, Every 6 hours PRN, pain moderate (4-6), first line, Starting on Tue09/22/24 at 1017 HYDROmorphone (Dilaudid) injection 0.5 mg 0.5 mg, intravenous, Every 3 hours PRN, pain severe (7-10), first line, Starting on Tue09/21/24 at 0547 0602 (Given - Provider: Kassidy Estrada RN)0920 (Given - Provider: Alexa Brown RN)122 (Given - Provider: Eliana Stapleton RN)165 (Given - Provider: Alexa Brown RN)2018 (Given - Provider: Bethany Little RN) 0046 (Given - Provider: Bethany Little RN)0438 (Given - Provider: Bethany Little RN)0755 (Given - Provider: Kaela Trejo RN)1056 (Given - Provider: Kaela Trejo RN)1611 (Given - Provider: Kaela Trejo RN)2129 (Not Given - Provider: Anisha Sheldon RN - Reason: Other - Comment: duplicate task) 0021 (Given - Provider: Anisha Sheldon RN)0402 (Given - Provider: Opal White RN)0828 (Given - Provider: Kaela Trejo RN)1149 (Given - Provider: Kaela Trejo RN) hyoscyamine (Anaspaz) disintegrating tablet 0.125 mg 0.125 mg, oral, Every 8 hours PRN, cramping, Starting on Tue09/22/24 at 1014 magnesium hydroxide (Milk of Magnesia) 400 mg/5 mL suspension 30 mL 30 mL, oral, Daily PRN, constipation, first line, Starting on Tue09/21/24 at 0654, Contact provider if no bowel movement in past 48 hours. Follow administration with 8 ounces of water. ondansetron (Zofran) injection 4 mg(Linked Group 2) 4 mg, intravenous, Every 8 hours PRN, nausea/vomiting, first line, Starting on Tue09/21/24 at 0654, Administer IV if patient unable to take oral tablet. When administering via IV Push, administer over 3-5 minutes. ondansetron ODT (Zofran-ODT) disintegrating tablet 4 mg(Linked Group 2) 4 mg, oral, Every 8 hours PRN, nausea/vomiting, first line, Starting on Tue09/21/24 at 0654, 1st Line. Patient should allow tablet to dissolve on tongue. Do not remove from blister pack until just before administering. If inadequate response within 60 minutes, proceed to next-line agent for same PRN reason or contact provider if no further options ordered. zolpidem (Ambien) tablet 10 mg 10 mg, oral, Nightly PRN, sleep, Starting on Tue09/21/24 at 0654 2132 (Given - Provider: Bethany Little RN) Linked Groups Order Group 1: acetaminophen (Tylenol) tablet 650 mgJump to med 650 mg, oral, Every 4 hours PRN, pain mild (1-3), first line, Starting on Tue09/21/24 at 0654, If ordered PRN for pain, nurse is permitted to administer this medication for higher pain scores based on patient preference? Yes Or acetaminophen (Tylenol) oral liquid 650 mgJump to med 650 mg, oral, Every 4 hours PRN, pain mild (1-3), first line, Starting on Tue09/21/24 at 0654, Give oral liquid per feeding tube if present. Or acetaminophen (Tylenol) suppository 650 mgJump to med 650 mg, rectal, Every 4 hours PRN, pain mild (1-3), first line, Starting on Tue09/21/24 at 0654, Give rectally if unable to administer by mouth or feeding tube., If ordered PRN for pain, nurse is permitted to administer this medication for higher pain scores based on patient preference? Yes Group 2: ondansetron ODT (Zofran-ODT) disintegrating tablet 4 mgJump to med 4 mg, oral, Every 8 hours PRN, nausea/vomiting, first line, Starting on Tue09/21/24 at 0654, 1st Line. Patient should allow tablet to dissolve on tongue. Do not remove from blister pack until just before administering. If inadequate response within 60 minutes, proceed to next-line agent for same PRN reason or contact provider if no further options ordered. Or ondansetron (Zofran) injection 4 mgJump to med 4 mg, intravenous, Every 8 hours PRN, nausea/vomiting, first line, Starting on Tue09/21/24 at 0654, Administer IV if patient unable to take oral tablet. When administering via IV Push, administer over 3-5 minutes. FOR RECORDS PERTAINING TO PATIENTS WHO ARE [...] BE BASED ON THE PRIMARY CLINICAL RECORDS. [facility] [employer] [facility]. provides no warranty or guarantee of the accuracy or completeness of information in this document.
[2024-11-25] MEDS: 0.9% Normal Saline (1000mL) 1,000 ML 999 ML IV (15:29)
[2024-11-25 15:45] LABS: AST(SGOT) 22 U/L (<=31); Alanine Aminotransfer ALT/SGPT 19 U/L (<=34); Albumin, Serum 4.3 g/dL (3.5-5.0); Alkaline Phosphatase 134 U/L (35-104); Anion Gap 11 (5-15); BUN 5 mg/dL (4-19); BUN/Creat Ratio 7.1 RATIO (10-20); Calcium,Total 9.6 mg/dL (7.6-11.0); Carbon Dioxide 22.7 mmol/L (21.0-32.0); Chloride 103 mmol/L (98-108); Estimated Creatinine Clearance 80.72 ml/min (50-250); Globulin 3.4 g/dL (2.2-4.2); Glucose 98 mg/dL (70-99); Lipase 14 U/L (13-75); Potassium 3.8 mmol/L (3.3-5.1)
[2024-11-25 16:26] LABS: Mucous, Urine 0 SEEN /hpf (<or=2+)
[2024-11-25 16:45] LABS: Color, Urine Yellow (Yellow); Glucose, Dipstick Normal (Normal); Ketone-Dipstick Negative (Negative); Leukocyte Esterase-Dipstick Negative /ul (Negative); Nitrite-Dipstick Negative (Negative); Occult Blood-Urine 50 /ul (Negative); Protein-Dipstick 30 mg/dl (Negative); Specific Gravity, Urine 1.005 (1.002-1.030); Urine Bilirubin Dipstick Negative (Negative)
[2024-11-25 17:06] LABS: Hematocrit 42.3 % (37-47); Hemoglobin 13.9 g/dL (12.0-15.0); Mean Corp Hgb Conc 32.9 g/dL (32-36); Mean Corpuscular Volume 93.4 fL (81-99); Red Blood Count 4.53 M/mm3 (4.2-5.4); White Blood Count 10.9 K/mm3 (4.4-11.0)
[2024-11-25 17:07] LABS: Mean Platelet Vol. 11.0 fl (6.2-12.0); Platelet Count 227 K/mm3 (150-450); RBC Distribution Width CV 15.4 % (11.6-14.6); RBC Distribution Width SD 53.2 fl (35.1-43.9)
[2024-11-25 17:08] LABS: Immature Granulocytes Count 0.030 X10^3/uL (0.0-0.0)
[2024-11-25 17:23] LABS: Internal QC Validated? YES +Cl - CLEAR BKGD; Pregnancy, Urine Negative Negative; Record Kit Lot#,Urine Preg 964736
[2024-11-25 17:39] LABS: Red Blood Cells-Urine 5-10 SEEN /hpf (0-5); Squamous Epithelial Cells - UA 0-5 SEEN /hpf (5-10)
[2024-11-25] MEDS: HYDROmorphone 0.5 MG/0.5 ML SYRINGE IV (18:53)
== END 2024-11-25 18:56 | disposition home or self-care (01) ==
PROVIDERS: Emergency Provider Emergency Medicine; PCP Family Medicine; Visit Provider Emergency Medicine
DX: R10.9 Unspecified abdominal pain (principal); I11.0 Hypertensive heart disease with heart failure; I50.9 Heart failure, unspecified; I42.2 Other hypertrophic cardiomyopathy; F17.210 Nicotine dependence, cigarettes, uncomplicated; Z79.899 Other long term (current) drug therapy; Z95.810 Presence of automatic (implantable) cardiac defibrillator; Z86.711 Personal history of pulmonary embolism
CPT/HCPCS: 74177; 80053; 81001; 81025; 83605; 83690; 85025; 96361; 96374; 96375; 96376; 99284; Q9967; A4216; J2405

== ENCOUNTER 2024-11-27 22:49 | Emergency (ER) | payer OTHER, SELFPAY ==
[2024-11-27 22:49] VITALS: BP 122/71; PULSE 88; RESP 20; TEMP 36.8; O2SAT 98; BMI 21.7
--- NOTE | 2024-11-27 22:59 | EKG12_ITS ---
Test Reason : DYSRHYTHMIA Blood Pressure : */* mmHG Vent. Rate : 86 BPM Atrial Rate : 86 BPM P-R Int : 152 ms QRS Dur : 96 ms QT Int : 364 ms P-R-T Axes : 14 -73 85 degrees QTcB Int : 435 ms Normal sinus rhythm Possible Left atrial enlargement RSR' or QR pattern in V1 suggests right ventricular conduction delay Left anterior fascicular block Nonspecific ST and T wave abnormality Abnormal ECG Confirmed by TARUN CINTRON, MICHAEL ([id number]), assignment desk editor ERICKA BURCH ([id number]) on 11/28/2024 9:41:47 AM Referred By: Confirmed By: MICHAEL MCNEIL MD
--- NOTE | 2024-11-27 23:00 | ED.VIS.DYS ---
HPI History of Present Illness Chief Complaint: Shortness of Breath Narrative Narrative: 44-year-old female past medical history of chronic epigastric pain, smoker, ICD placement for hokum presents with shortness of breath that started this afternoon. She relates history that a few days ago, she had ERCP performed find out the reason for her abdominal pain. She states she had stents removed by Dr. Myles. She was seen in the emergency department 2 days ago for the epigastric pain. She states that she developed shortness of breath and cough earlier this afternoon. She states she has a history of heart failure and is on spironolactone as well. She starts Lasix when she gains 5 pounds within 3 days. She is about to take her Lasix as she states she is having weight gain, and she usually accumulates fluid in her abdomen but not in her legs. She states that she has used an inhaler without relief of her symptoms. She has a nasty cough and felt subjectively feverish this afternoon as well. She states she is concerned that she may have pneumonia. Additionally, she states that she is trying to quit smoking and took Chantix today. She did try to smoke a cigarette but became increasingly more short of breath. [facility] Medical History Normal Holter exam Cardiology follow-up encounter History of CHF (congestive heart failure) Leukocytosis Dilated pancreatic duct Hypertension Severe pulmonary hypertension History of hypertrophic cardiomyopathy Acute systolic congestive heart failure, NYHA class 3 Leukocytosis Cancer History of steroid therapy Easy bruising Migraine headache History of hiatal hernia History of ulceration History of IBS Abdominal bloating Stomach pain Nausea & vomiting Shortness of breath on exertion Smoker History of echocardiogram Chest pain Abdominal pain Pulmonary embolism Endometrial cancer 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 Ovarian cancer GERD (gastroesophageal reflux disease) Insomnia Anxiety Collapsed lung History of blood clots Asthma Breast cancer Pacemaker ICD (implantable cardioverter-defibrillator) in place Hypertrophic cardiomyopathy Home Medications ?Medication ?Instructions ?Recorded ?Last Taken ?Type alprazolam 0.5 mg tablet 0.5 mg PO BID ANXIETY 11/13/21 11/24/24 History zolpidem 10 mg tablet 10 mg PO QHS SLEEP 11/13/21 11/24/24 History sucralfate 1 gram tablet (Carafate) 1 g PO BIDCM GERD 07/10/24 11/25/24 History metoprolol succinate 25 mg 25 mg PO QDAY HEART 08/08/24 11/25/24 History tablet,extended release 24 hr pantoprazole 40 mg tablet,delayed 40 mg PO BID GERD 08/11/24 11/25/24 History release spironolactone 25 mg tablet 25 mg PO DAILY WATER PILL 08/20/24 11/25/24 History empagliflozin 10 mg tablet 10 mg PO QDAY 10/12/24 11/25/24 History (Jardiance) furosemide 20 mg tablet (Lasix) 20 mg PO QDAY PRN edema 10/17/24 Unknown History buprenorphine 15 mcg/hour weekly 1 patch topical QWEEK 11/25/24 11/25/24 History transdermal patch ondansetron 4 mg disintegrating 4 mg PO Q8H PRN PRN Nausea #10 tabs 11/25/24 Unknown Rx tablet varenicline tartrate 0.5 mg (11)-1 tab PO 11/25/24 Unknown History mg (42) tablets in a dose pack buprenorphine 10 mcg/hour weekly 1 patch topical QWEEK 11/27/24 Unknown History transdermal patch Allergy/AdvReac Type Severity Reaction Status Date / Time gabapentin (From Neurontin) Allergy Severe Anaphylaxis Verified 11/27/24 22:51 morphine Allergy Mild Hives Verified 11/27/24 22:51 codeine Allergy Hives Verified 11/27/24 22:51 erythromycin base Allergy PT UNSURE Verified 11/27/24 22:51 OF REACTION Fish Containing Products Allergy Other Verified 11/27/24 22:51 levofloxacin Allergy PT UNSURE Verified 11/27/24 22:51 OF REACTION shellfish derived Allergy Other Verified 11/27/24 22:51 tramadol Allergy Hives Verified 11/27/24 22:51 trimethobenzamide (From Allergy Other Verified 11/27/24 22:51 Tigan) hydrocodone (From Vicodin) AdvReac Other Verified 11/27/24 22:51 metoclopramide (From Reglan) AdvReac Other Verified 11/27/24 22:51 Family History Father Heart disease Idiopathic hypertrophic subaortic stenosis, hypertrophic obstructive cardiomyopathy, congestive heart failure Mother Breast cancer DVT (deep venous thrombosis) Sister Hypertrophic obstructive cardiomyopathy heart transplant at age 34 Cancer Brain, breast, and colon Grandfather Heart disease at age 45 Grandmother CVA (cerebral vascular accident) age 43 Surgical History History of esophagogastroduodenoscopy (EGD) History of ERCP Presence of implantable cardioverter-defibrillator (ICD) History of cardiac catheterization History of oophorectomy History of cervical polypectomy History of colonoscopy History of tubal ligation History of mastectomy History of cholecystectomy Hx of appendectomy Social History household members: spouse and family housing: house current occupational status: employed Smoking Status: Current every day smoker tobacco type: cigarettes how long ago did patient quit smokin months ago alcohol intake: former substance use type: does not use caffeine: Yes ROS ROS ED ROS Narrative Review of systems positive for cough, shortness of breath, subjective fever. Chronic abdominal pain, epigastric. No edema of legs. Positive weight gain of 5 pounds in 3 days. EXAM Physical Exam Narrative Exam Narrative: Afebrile. Vital signs noted. Nontoxic-appearing. Cardiovascular examination reveals a regular rate and rhythm. She has occasional rhonchi in the bilateral lung bases, but no respiratory distress, no overt wheezing or stridor. Abdomen is soft with mild tenderness in the epigastrium but no guarding or rebound. No pedal edema. Neurological examination is nonfocal, nonlateralizing, able to transfer from standing to cot without difficulty/independently. Const Vital Signs: 11/27/24 22:49 11/27/24 23:00 11/27/24 23:07 Temperature 98.2 F Temperature Source Oral Pulse Rate 88 Respiratory Rate 20 H Respiratory Effort Short of Breath Respiratory Pattern Tachypnea Blood Pressure 122/71 H Blood Pressure Mean 88 Pulse Ox 98 Oxygen Delivery Method Room Air Room Air Room Air 11/27/24 23:24 11/27/24 23:47 Temperature Temperature Source Pulse Rate 89 85 Respiratory Rate 20 H 22 H Respiratory Effort Respiratory Pattern Normal Blood Pressure 143/57 H Blood Pressure Mean 85 Pulse Ox 98 Oxygen Delivery Method Room Air MDM MDM MDM Narrative Medical decision making narrative: I reviewed her prior ED visit from 2 days ago. She had a CT scan. It did show inflammation of the bilateral lung bases, but no acute process intra-abdominal. The differential diagnosis includes but not limited to CHF exacerbation versus bronchitis versus pneumonia. I have lower clinical suspicion for pneumothorax or pulmonary embolism because a history and physical does not support this. Additionally, she may be having more exacerbation of her chronic abdominal pain or anxiety attack. Her pulse ox is 98% on room air without evidence of hypoxia. I do feel that chest x-ray should be obtained as well as COVID/influenza/RSV swab. She was given a DuoNeb aerosolized treatment. EKG was obtained and interpreted by myself independently as normal sinus rhythm at 86 bpm without ectopy or acute ST changes. No STEMI. I reviewed her laboratory work and she has slight leukocytosis of 12.31 compared to yesterday, but when compared to prior laboratories she almost has a chronic leukocytosis as high as 19,000. Hemoglobin normal at 12.6, hematocrit 38.6, platelet count normal at 241. X-ray of the chest in 2 views interpreted by myself independently shows no evidence of consolidation or pneumonia. I do not feel antibiotics are indicated. She does have cardiomegaly and ICD. I reviewed the radiology report which confirms my independent interpretation. On repeat examination, she states she feels the same. She states she felt improved while in the aerosol treatment was being given. I reviewed her remaining laboratory work and her BNP is grossly unremarkable except for carbon dioxide of 17.7 which may be secondary to hyperventilation. Normal BUN and creatinine. Glucose 121 with a normal anion gap of 14. BNP is elevated at 3112. When compared to prior labs, has been as high as 6000. I ordered Lasix 40 mg intravenously, but patient declined stating that when she receives it here it makes her shortness of breast warmth. She would prefer to take her oral Lasix at home. Given her negative workup thus far, although COVID influenza and RSV swab is pending, patient is motivated for discharge. I do not feel she needs to wait as treatment will still be the same. Smoking cessation was discussed. She was given dose of Dilaudid 0.5 mg intravenously prior to discharge. I feel she can be discharged to follow-up. Return instructions reviewed. Disposition discharged home in stable condition. History & Record Review Discussion w/independent historian: Patient Additional record(s) reviewed:: Prior ED visit and Prior labs Lab Data Attestation: I reviewed the patient's lab results. Labs: Laboratory Results - last 24 hr 11/27/24 23:07 WBC 12.3 H RBC 4.14 L Hgb 12.6 Hct 38.6 MCV 93.2 MCH 30.4 MCHC 32.6 RDW Std Deviation 51.3 H RDW Coeff of Damon 15.0 H Plt Count 241 MPV 10.7 Immature Gran % (Auto) 0.400 Neut % (Auto) 80.3 H Lymph % (Auto) 11.3 L Heard % (Auto) 6.2 Eos % (Auto) 1.3 Baso % (Auto) 0.5 Absolute Neuts (auto) 9.8 H Absolute Lymphs (auto) 1.39 Nucleated RBC % 0 Sodium 135 Potassium 3.8 Chloride 103 Carbon Dioxide 17.7 L Anion Gap 14 BUN 10 Creatinine 0.79 Estim Creat Clear Calc 77.66 Est GFR (MDRD) Non-Af 94 BUN/Creatinine Ratio 12.7 Glucose 121 H Calcium 9.3 NT pro BNP II 3112 H Radiography Diagnostic Testing: Clinical Impression(s) from Imaging Studies Chest X-Ray 11/27/24 23:18 IMPRESSION: Cardiomegaly. No acute pulmonary disease. Reading Location: [facility] Discharge Plan Triage Chief Complaint: Shortness of Breath ED Provider: Rubin Briggs Dx/Rx/DC Orders Clinical Impression: Shortness of breath, Chronic abdominal pain, Elevated brain natriuretic peptide (BNP) level Instructions: ED Abdominal Pain Unkn Cause Fem, ED Chronic Pain, ED Dyspnea Prescriptions: No Action metoprolol succinate 25 mg tablet extended release 24 hr 25 mg PO QDAY Jardiance 10 mg tablet 10 mg PO QDAY furosemide [Lasix] 20 mg tablet 20 mg PO QDAY PRN (Reason: edema) Patient Comments: takes only as needed if weight gain is more than 5lbs in 3 days alprazolam 0.5 mg tablet 0.5 mg PO BID Patient Comments: TAKE 1 TABLET BY MOUTH TWICE DAILY zolpidem 10 mg tablet 10 mg PO QHS sucralfate [Carafate] 1 gram tablet 1 g PO BIDCM pantoprazole 40 mg tablet,delayed release (DR/EC) 40 mg PO BID spironolactone 25 mg tablet 25 mg PO DAILY Patient Comments: takes when your water weight is less than 5lbs for week varenicline tartrate 0.5 mg (11)- 1 mg (42) tablets,dose pack PO Patient Comments: PT HAS NOT STARTED YET buprenorphine 15 mcg/hour patch weekly 1 patch topical QWEEK ondansetron 4 mg tablet,disintegrating 4 mg PO Q8H PRN PRN (Reason: Nausea) Qty: 10 0RF buprenorphine 10 mcg/hour patch weekly 1 patch topical QWEEK Primary Care Provider: Dex Wilkinson Referrals: Dex Wilkinson MD [Primary Care Provider] - As soon as possible Activity Restrictions/Additional Instructions: Take your Lasix as previously directed. Stop smoking. Use your inhaler every 4 hours as previously directed. Follow-up with pain management as well has gastroenterology, Friend. Print Language: Ug[place]an Disposition Disposition: Home, Self Care
[2024-11-27 23:17] LABS: Hematocrit 38.6 % (37-47); Hemoglobin 12.6 g/dL (12.0-15.0); Immature Granulocytes Count 0.050 X10^3/uL (0.0-0.0); Mean Corp Hgb Conc 32.6 g/dL (32-36); Mean Corpuscular Volume 93.2 fL (81-99); Mean Platelet Vol. 10.7 fl (6.2-12.0); NRBC Flagged by Analyzer 0 % (0-5); Platelet Count 241 K/mm3 (150-450); RBC Distribution Width CV 15.0 % (11.6-14.6); RBC Distribution Width SD 51.3 fl (35.1-43.9); Red Blood Count 4.14 M/mm3 (4.2-5.4); White Blood Count 12.3 K/mm3 (4.4-11.0)
--- NOTE | 2024-11-27 23:18 | RAD_ITS ---
PROCEDURE: CHEST PA AND LATERAL 11/27/2024 REASON FOR EXAM: SHORTNESS OF BREATH TECHNIQUE: Procedure Code: RADCXR Modality: DX Procedure: CHEST PA AND LATERAL COMPARISON: 08/20/2024 FINDINGS: Devices: Right chest wall single lead ICD in appropriate positioning. Lungs/Pleura: Clear. No airspace consolidation, pneumothorax or pleural effusion. Heart/Mediastinum: Cardiomegaly. No significant vascular congestion. Bones/Soft tissues: No significant abnormality. RAD/Chest PA and Lateral IMPRESSION: Cardiomegaly. No acute pulmonary disease. Reading Location: [facility]
[2024-11-27 23:24] VITALS: PULSE 89; RESP 20
--- OUTSIDE RECORDS SUMMARY | 2024-11-27 23:26 | XMS RPT_ITS | CCD ---
Demographics Address [address] [place] [address] Mobile Phone Preferred Language en Marital Status Latter-Day Affiliation Unknown Race White Ethnic Group Not or Lati no Author Organization [facility] Care Team Providers Care Petroleum Geologist Name Role Phone TABBAA, MOUSAB Unavailable Unavailable [...] Josep CINTRON, Dr. Coronado Other Provider Jana PMO PROJECT MANAGER-C, Bogdan Pope Other Provider Xochitl Cole Other [...] Josep CINTRON, Dr. Coronado Other Provider Jana PMO PROJECT MANAGER-C, Bogdan Pope Other Provider Xochitl Cole Other Provider Grover Alexis Other Provider Josr AHMLIN, Dr. Dorsey Attending Provider Josr HAMLIN, Dr. [...] Ileana CINTRON, Dr. Taylor Roque Referring Provider Dr. Dex Wilkinson MD Primary Care Provider Dr. Sergio Umaña DO Attending Provider Unav lori Sierra MD, Dr. Norman Attending Provider Rigo CINTRON, Dr. Norman Other Provider [phone] DEX WILKINSON Primary Care Unavailable BOO RODRIGUEZ Admitting Unavailable RISHABH EL Attending Unavailable iRgo CINTRON, Dr. Norman Referring Provider Sujatha Olea Attending Provider Unavailable DEEPIKA MAN Attending Unavailabl e RADU KAY Referring Unavailable DEX WILKINSON Primary Care Unavailable Jaja CINTRON, Dr. Kowalski Primary Care Provider Dr. Dex Wilkinson MD Referring Provider Dr. Quang Myles DO Attending Provider Dr. Sergio Umaña DO Admit Provider Unavail able Dr. Sergio Umaña DO Other Provider Unavail able Bárbara Mendez Attending Provider [phone] Rosalio CINTRON, Dr. Felton Attending Provider Dr. Mercy Bishop MD Attending Provider Dr. Quang Myles DO Other Provider RADU KAY Attending Unavailable DEX WILKINSON B Primary Care Unavailable RADU KAY Referring Unavailable DEX WILKINSON B Primary Care Unavailable RADU KAY Attending Unavailable DEX WILKINSON B Primary Care Unavailable Dr. Carlos Nair DO Emergency Provider [phone] Quang Myles Attending Unavailable Quang Myles Referring Unavailable Dex Wilkinson Primary Care Unavailable FriendQuang Attending Unavailable FriendQuang Referring Unavailable Wilkinson, Dex Primary Care Unavailable Lopez Larios Admitting Unavailable Lopez Larios Consulting Unavailable Wilkinson, Dex Primary Care Unavailable Ileana, Taylor Mya Referring Unavailable Quang Myles Attending Unavailable Koram, Taylor Mya Consulting Unavailable Dex Wilkinson Primary Care Unavailable Nabor Frey Attending Unavailable Sergio Umaña Consulting Unavailable Sergio Umaña Admitting Unavailable Wilkinson, Dex Primary Care Unavailable Rigo, Emerson Attending Unavailable Rigo, Emerson Consulting Unavailable Sergio Umaña Admitting Unavailable Filemon Subramanian Consulting Unavailable Mercy Bishop Attending Unavailable Wilkinson, Dex Primary Care Unavailable Chetan Grant Consulting Unavailable Obed, Saman Consulting Unavailable Augustin Potts Consulting Unavailable Don Victoria Consulting Unavailable Rosalio Orlando Consulting Unavailable Cleo Huerta Consulting Unavailable Mercy Bishop Consulting Unavailable Sarita Flores Consulting UnavailIsiah Darnellvasa Consulting Unavailable Raza Caratore Consulting Unavailable Jana GONSALES, Bogdan Pope Consulting Unavailable Xochitl Cole Consulting Unavail able Grover Guerra Consulting Unavailable Sergio Umaña Consulting Unavailable Willian Ovalles Consulting Unavailable Friend, Quang Attending Unavailable Wilkinson, Dex Primary Care Unavailable Wilkinson, Dex Referring Unavailable Wilkinson, Dex Primary Care Unavailable Demetrio Santamariaril Attending Unavailable Demetrio Santamariaril Attending Unavailable Wilkinson, Dex Primary Care Unavailable Bárbara Ureña Attending Unavailable Wilkinson, Dex Primary Care Unavailable Wilkinson, Dex Referring Unavailable Rosalio, Jose Francisco Attending Unavailable Wilkinson, Dex Primary Care Unavailable Wilkinson, Dex Referring Unavailable Friend, Quang Attending Unavailable Rigo, Emerson Referring Unavailable Lopez Larios Attending Unavailable Sergio Umaña Consulting Unavailable Wilkinson, Dex Primary Care Unavailable Rigo, Emerson Attending Unavailable Sergio Umaña Admitting Unavailable Friend, Quang Attending Unavailable Wilkinson, Dex Primary Care Unavailable Wilkinson, Dex Referring Unavailable RosalioDemetrio virgenril Attending Unavailable Wilkinson, Dex Primary Care Unavailable Xochitl Cole Attending Unavail able Wilkinson, Dex Primary Care Unavailable Wilkinson, Dex Referring Unavailable Wilkinson, Dex Primary Care Unavailable Rosalio, Jose Francisco Attending Unavailable Wilkinson, Dex Referring Unavailable Bárbara Ureña Attending Unavailable Wilkinson, Dex Primary Care Unavailable Wilkinson, Dex Referring Unavailable Taylor Tejeda Attending Unavailable Sergio Umaña Referring Unavailable Willian Colón Attending Unavailable Wilkinson, Dex Primary Care Unavailable Breann Loera Attending Unavailable Wilkinson, Dex Primary Care Unavailable Wilkinson, Dex Referring Unavailable Sergio Umaña Attending Unavailable Wilkinson, Dex Primary Care Unavailable Sujatha Olea Attending Unavailable Wilkinson, Dex Referring Unavailable Mercy Bishop Attending Unavailable Wilkinson, Dex Primary Care Unavailable Wilkinson, Dex Referring Unavailable Wilkinson, Dex Primary Care Unavailable Carlos Nair Attending Unavailable Friend, Quang Attending Unavailable Friend, Quang Referring Unavailable Wilkinson, Dex Primary Care Unavailable Friend, Quang Attending Unavailable Friend, Quang Referring Unavailable Wilkinson, Dex Primary Care Unavailable Lopez Larios Admitting Unavailable Lopez Larios Consulting Unavailable Wilkinson, Dex Primary Care Unavailable Taylor Tejeda Attending Unavailable Gage Sharma Attending Unavailabl e Wilkinson, Dex Primary Care Unavailable Willian Ovalles Attending Unavailable Saman Clay Attending Unavailable Friend, Quang Consulting Unavailable Friend, Quang Attending Unavailable Wilkinson, Dex Primary Care Unavailable Wilkinson, Dex Referring Unavailable Friend, Quang Consulting Unavailable Friend, Quang Attending Unavailable Wilkinson, Dex Primary Care Unavailable Wilkinson, Dex Referring Unavailable Sergio Umaña Attending Unavailable Wilkinson, Dex Primary Care Unavailable Babar Wood Attending Unavailable Wilkinson, Dex Primary Care Unavailable Bimal Cortez Attending Unavailable Friend, Quang Attending Unavailable Wilkinson, Dex Primary Care Unavailable Wilkinson, Dex Referring Unavailable Bárbara Ureña Attending Unavailable Wilkinson, Dex Primary Care Unavailable Wilkinson, Dex Referring Unavailable Friend, Quang Attending Unavailable Wilkinson, Dex Referring Unavailable Wilkinson, Dex Primary Care Unavailable Sergio Umaña Admitting Unavailable AmrFilemon jama Consulting Unavailable Wilkinson, Dex Primary Care Unavailable Willian Ovalles Attending Unavailable Chetan Grant Consulting Unavailable Obed, Saman Consulting Unavailable Augustin Potts Consulting Unavailable Don Victoria Consulting Unavailable Rosalio, Orlando Consulting Unavailable Deanna, Cleo Consulting Unavailable Mercy Bishop Consulting Unavailable Jim Floresapradealmita Consulting UnavailVincent Darnell Consulting Unavailable Cliff Car Consulting Unavailable Jana GONSALES, Bogdan Pope Consulting Unavailable Xochitl Cole Consulting Unavail able Grover Guerra Consulting Unavailable Sergio Umaña Consulting Unavailable Allergies Allergy Classification Reported Allergen(s) Allergy Type Date of Onset Reaction(s) Facility (15 sources) acetaminophen / HYDROcodone; Translations: [HYDROCODONE-ACETAMI NOPHEN] Drug Allergy 11-19-20 07 Shortness of Breath [facility] Repository (16 sources) azithromycin; Translations: [AZITHROMYCIN] Drug Allergy 10-20-19 07 Intolerance, Unknown [facility] Repository (20 sources) cucumber extract; Translations: [CUCUMBER] Drug Allergy 09-03-19 11 Anaphylaxis [facility] Repository (7 sources) FLUoxetine; Translations: [FLUOXETINE HCL] Drug Allergy 11-08-19 14 Other: See Comments [facility] Repository (20 sources) gabapentin; Translations: [GABAPENTIN] Drug Allergy 05-17-19 12 Mental Status Change [facility] Repository (7 sources) levoFLOXacin; Translations: [LEVOFLOXACIN IN D5W] Drug Allergy 04-05-19 14 Swelling, Itching [facility] Repository (4 sources) LORazepam; Translations: [LORAZEPAM] Drug Allergy 07-11-19 11 AOF, Other [facility] Repository (20 sources) morphine; Translations: [MORPHINE] Drug Allergy 09-15-19 11 Hives [facility] Repository (2 sources) ondansetron; Translations: [ONDANSETRON HCL (PF)] Drug Allergy 11-17-19 12 AOF [facility] Repository (7 sources) Shellfish; Translations: [SHELLFISH] Propensity to adverse reactions to food (disorder) 08-21-19 14 Anaphylaxis [facility] Repository (20 sources) traMADol; Translations: [TRAMADOL] Drug Allergy 12-09-19 15 [facility] Repository (1 source) OTHER; Translations: [OTHER] Propensity to adverse reactions (disorder) 09-03-19 11 AOF [facility] Repository (7 sources) TRIMETHOBENZAMIDE-BE NZOCAINE; Translations: [TRIMETHOBENZAMIDE-B ENZOCAINE] Propensity to adverse reactions to drug (disorder) 09-23-19 13 Anaphylaxis [facility] Repository (7 sources) FISH; Translations: [FISH] Propensity to adverse reactions to food (disorder) 08-21-19 14 Anaphylaxis [facility] Repository (20 sources) Codeine; Translations: [codeine] Drug Allergy 11-03-19 22 Rash [facility] (20 sources) Erythromycin Drug Allergy 11-03-19 22 PT UNSURE OF REACTION [facility] (1 source) Penicillins Allergy to substance 11-03-19 PT UNSURE OF REACTION [facility] Work Phone: (20 sources) levoFLOXacin; Translations: [LEVOFLOXACIN] Drug Allergy 12-17-19 Unknown [facility] (18 sources) Acetaminophen Drug Allergy 07-02-19 Other [facility] (19 sources) HYDROcodone Drug Allergy 07-02-19 Other [facility] (19 sources) Metoclopramide Drug Allergy 07-02-19 Other [facility] (20 sources) Shellfish; Translations: [SHELLFISH DERIVED] Allergy to substance 07-02-19 Anaphylaxis [facility] (20 sources) trimethobenzamide; Translations: [TRIMETHOBENZAMIDE] Drug Allergy 07-02-19 Anaphylaxis [facility] (19 sources) Fish Containing Products Allergy to substance 07-02-19 Other [facility] (8 sources) FLUoxetine; Translations: [FLUOXETINE] Drug Allergy 08-16-19 Other [facility] Work Phone: (1 source) Acetaminophen Drug Allergy 11-24-19 [facility] Repository (1 source) Codeine Drug Allergy 11-26-19 [facility] Repository (1 source) HYDROcodone Drug Allergy 11-26-19 [facility] Repository (1 source) levoFLOXacin Drug Allergy 11-26-19 [facility] Repository (1 source) Metoclopramide Drug Allergy 11-26-19 [facility] Repository (1 source) trimethobenzamide Drug Allergy 11-26-19 [facility] Repository (1 source) Fish Containing Products Drug allergy (disorder) 11-26-19 [facility] Repository (1 source) erythromycin base Drug allergy (disorder) 11-26-19 [facility] Repository Medications Current Medications Medication Drug Class(es) Dates Sig (Normalized) Sig (Original) Acetaminophen (1 source) Start: 09-21-2024 take 1 tablet by mouth every four hours as needed acetaminophen (Tylenol) tablet 650 mg acetaminophen 325 mg / HYDROcodone bitartrate 5 mg oral tablet (1 source) Opioid Agonist Start: 11-13-2021 take 1 tablet by mouth every six hours Hydrocodone-Acetami nophen Active 1 TABLET PO EVERY 6 HOURS 12 3 November 13, 2021 168 hr buprenorphine 0.015 mg/hr transdermal system (2 sources) Partial Opioid Agonist Start: 11-25-2024 apply 1 dose transdermal route e very week buprenorphine (Butrans) 15 mcg/hour patch Place [...] 08-20-2024 docusate sodium 50 mg / sennosides, halfway 8.6 mg oral tablet (3 sources) Start: [...] Pneumonia empagliflozin 10 mg oral tab let (13 sources) Sodium-Glucose Cotransporter 2 Inhibitor Start: 10-12-2024 [...] hyoscyamine sulfate 0.125 mg disintegrating oral tablet (10 sources) Start: 09-22-2024 take 1 tablet by khris every eight hours as needed Start: 09-18-2024 [...] sources) beta-Adrenergic Krishan Start: 07-27-2024 End: 11-21-2024 ondansetron 4 mg disintegrating oral tablet (20 sources) Serotonin-3 Receptor Antagonist Start: 11-25-2024 Start: 09-21-2024 End: 09-21-2024 4 mg, intravenous, [...] 26, 2022 1:35am August 16, 2023 11:22am ondansetron ODT (Zofran-ODT) disintegrating tablet 4 mg [...] daily. Active spironolactone 25 mg oral tablet (17 sources) Aldosterone Antagonist Start: 08-15-2024 End: 08-15-2025 [...] Starting on Tue09/21/24 at 0654 Start: 11-13-2021 (9 sources) Start: 11-25-2024 Start: 10-17-2024 End: 11-25-2024 Start: 10-17-2024 Start: 10-12-2024 End: 10-24-2024 Start: 10-12-2024 Completed/Discontinued Medications Medication Drug Class(es) Dates Sig (Normalized) Sig (Original) acetaminophen 325 mg / oxyCODONE hydrochloride 5 mg oral tablet (20 sources) Opioid Agonist Start: 11-02-2023 End: 07-20-2024 Start: 11-02-2023 End: 07-20-2024 Oxycodone-Acetaminophen (End ocet) 5-325 mg tablet Discontinued 1 {tbl} PO EVERY 6 HOURS as needed for pain 12 3 July 01, 2024 July 20, 2024 11:41pm Start: 07-04-2023 End: 08-16-2023 Oxycodone-Acetaminophen (Per cocet) 5-325 mg tablet Discontinued 1 {tbl} PO Q8H as needed for pain 10 3 Lara 22nd, 2024 Norma 4th, 2024 11:22am Start: 12-26-2022 End: 08-16-2023 Start: 12-26-2022 End: 08-16-2023 Oxycodone-Acetaminophen (Per cocet) 5-325 mg tablet Discontinued 1 {tbl} PO EVERY 6 HOURS as needed for pain 12 December 26, 2022 August 16, 2023 11:22am [id number] 200 actuat albuter ol 0.09 mg/actuat metered [...] / clavula mayra 125 mg oral tablet (20 sources) Penicillin-class Antibacterial Start: 11-02-2023 End: 05-12-2024 [...] 1 ml ketorolac tromethamine 30 mg/ml injection (19 sources) Nonsteroidal Anti-inflammatory Drug, Cyclooxygenase Inhibitor Start: 09-22-2024 End: 09-22-2024 15 mg, intravenous, Once, On 09/22/24 at 1530, For 1 dose Start: 07-03-2024 End: 07-20-2024 lidocaine 50 mg/ml rectal cream (8 sources) Antiarrhythmic, Amide Local Anesthetic Start: 09-13-2024 End: 10-24-2024 Start: 07-25-2024 End: 07-25-2024 X (OR/PROCEDURE) PRN, Starti ng on Tue07/25/24 at 1530, Until Tue07/25/24 at 1530, Intraprocedure meloxicam 15 mg oral tablet (18 sources) Nonsteroidal Anti-inflammatory Drug Start: 08-10-2024 End: 09-21-2024 methscopolamine bromide 5 mg oral tablet (20 sources) Anticholinergic Start: 10-26-2023 End: 07-10-2024 5 ml midazolam 1 mg/ml injection (1 source) Benzodiazepine Start: 07-25-2024 End: 07-25-2024 INTRAVENOUS, X (OR/PROCEDURE) PRN, Starting on Tue07/25/24 at 1535, Until Tue07/25/24 at 1553, Intraprocedure oxyCODONE hydrochloride 5 mg oral tablet (20 sources) Opioid Agonist Start: 09-14-2024 End: 10-17-2024 Start: 08-28-2024 End: 09-04-2024 Start: 08-24-2024 End: 09-11-2024 predniSONE 20 mg oral tablet (20 sources) Start: 07-20-2024 End: 08-11-2024 Start: 07-01-2024 End: 07-10-2024 Start: 07-01-2024 End: 07-10-2024 take 2 tablets by mouth once daily Prednisone 20 mg tablet Discontinued 40 mg PO DAILY 10 July 01, 2024 12:00am July 10, 2024 11:56am rimegepant 75 mg disintegrat ing oral tablet (19 sources) Start: 07-26-2023 End: 08-16-2023 Start: 07-26-2023 [...] and drainage procedure] Onset: Episodic Anxiety disorders (20 sources) Anxiety; Translations: [Anxiety disorder, unspecified] Onset: 9 07-26-2023 Chronic Comment on above: ON MED Asthma (20 sources) Asthma; Translations: [Unspecified asthma, uncomplicated] Onset: 5 Resolved: 5 07-26-2023 Chronic Comment on above: PRN INHALER Biliary tract disease (15 sources) Common bile duct calculus; Translations: [Calculus [...] on above: Medtronic Visia AF M RI [id number] 10/29/2016Medtronic [id number] right ventricular lead Congestive heart [...] [Essential (primary) hypertension] Onset: 5 07-23-2024 Chronic Gastroduodenal ulcer (except hemorrhage) (4 sources) Gastric ulcer; Translations: [Gastric ulcer, unspecified as acute or chronic, without hemorrhage or perforation] Onset: 1 Chronic Headache; including migraine (20 sources) Migraine; Translations: [Migraine, unspecified, not intractable, without status migrainosus] 12-25-2021 Chronic Noninfectious gastroenteritis (20 sources) Inflammatory bowel disease; [...] sources) Long-term current use of 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; Translations: [shelter (current) use of 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s] Onset: 5 07-26-2023 Episodic Other aftercare (1 source) Patient encounter status; Translations: [Encounter for therapeutic drug level monitoring] Onset: 5 07-26-2024 Episodic Other aftercare (1 source) shelter (current) use of 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s; Translations: [Current use of [facility] anticoagulation] Onset: 5 Episodic Other and ill-defined heart disease (1 source) Hypertrophic cardiomegaly ; Translations: [Cardiomegaly] 08-15-2024 Chronic Other and ill-defined heart disease (2 sources) Cardiomegaly; Translations: [Cardiomegaly] Onset: 5 Chronic Other circulatory disease (20 sources) History of cardiomyopathy; Translations: [Personal history of other diseases of the circulatory system] 07-21-2024 Episodic Other female genital disorders (12 sources) Abnormal uterine bleeding; Translations: [Abnormal uterine [...] serum enzymes] 08-20-2024 Episodic Other liver diseases (14 sources) High lipase level in serum; Translations: [...] other intrathoracic organs] Onset: 5 05-15-2024 Chronic Pancreatic disorders (not diabetes) (20 sources) Pancreatic duct disorder; Translations: [Other specified diseases of pancreas] Onset: 5 08-20-2024 Episodic Pia-; endo-; and myocarditis; cardiomyopathy (except that caused by tuberculosis or sexually transmitted disease) (20 sources) Hypertrophic obstructive cardiomyopathy; 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 hypertrophic cardiomyopathy] Onset: 2 12-26-2022 Chronic Phlebitis; thrombophlebitis and thromboembolism (5 sources) H/O: Deep vein thrombosis; Translations: [Personal history of other venous thrombosis and embolism] Onset: 5 07-24-2024 Episodic Pleurisy; pneumothorax; pulmonary collapse (20 sources) Pleural effusion; Translations: [Pleural effusion, not [...] [Tobacco use] 11-21-2024 Episodic Residual codes; unclassified (2 sources) Other specified postprocedural states; Translations: [Other specified [...] (4 sources) SUMMARY Onset: 5 03-09-2021 Unclassified (6 sources) Abnormal uterine bleeding Past or Other Problems Problem Classification Problem Date Documented Date Episodic/Chronic Cardiac dysrhythmias (4 sources) Palpitations; Translations: [Palpitations] Onset: 10-02-2019 10-02-2019 Episodic Fluid and electrolyte disorders (4 sources) Hypokalemia; Translations: [Hypokalemia] Onset: 11-07-2013 Episodic Gastritis and duodenitis (20 sources) Acute hemorrhagic gastritis; Translations: [Gastritis, unspecified, with bleeding] Onset: 07-31-2024 07-23-2024 Episodic Mood disorders (4 sources) Depressive disorder; Translations: [Depression] Onset: 11-06-2013 Resolved: 05-23-2014 03-09-2021 Chronic Nausea and vomiting (20 sources) Nausea with vomiting, unspecified; Translations: [Nausea and vomiting] Onset: 12-05-2011 Resolved: 06-17-2014 07-21-2024 Episodic Nonmalignant breast conditions (8 sources) Lump in [...] foot] Onset: 10-03-2013 Resolved: 05-23-2014 05-23-2014 Episodic Other screening for suspected conditions (not mental disorders or infectious disease) (20 sources) Raised cardiac enzyme or marker; Translations: [Other specified abnormal findings of blood chemistry] Onset: 07-31-2024 07-21-2024 Episodic Pia-; endo-; and myocarditis; cardiomyopathy (except that caused by tuberculosis or sexually transmitted disease) (20 sources) Vegetation of heart; Translations: [Acute and subacute infective endocarditis] Onset: 07-24-2024 07-22-2024 Episodic Residual codes; unclassified (8 sources) BRCA2 [...] Test Name Value Interpretation Reference Range Facility Abdomen/Pelvis W IV Cont ONL Yon 11-25-2024 Abdomen/Pelvis W IV Cont ONLY Normal [facility] Absolute lymphocyte countOrd ered By: Carlos Nair on 11-25-2024 Lymphocytes Auto (Unsp spec) [#/Vol] 0.74 10*3/uL Low 0.83-4.51 [facility] Anion gap in Serum or Plasma Ordered By: Carlos Nair on 11-25-2024 Anion gap [Moles/Vol] 11 mmol/L 5-15 [facility] BUN/creatinine ratioOrdered By: Carlos Nair on 11-25-2024 Urea nitrogen/Creatinine [Mass ratio] 7.1 mg/mg Low 10-20 [facility] Basophil percentageOrdered B y: Carlos Nair on 11-25-2024 Basophils/100 WBC (Bld) 0.5 % 0-1 [facility] Bilirubin Test strip Ql (U)O rdered By: Carlos Nair on 11-25-2024 Bilirubin Ql (U) Negative Negative [facility] Bilirubin, totalOrdered By: Carlos Nair on 11-25-2024 Bilirubin [Mass/Vol] 0.81 mg/dL 0.00-1.30 [facility] Blood platelets count (numbe r/volume)Ordered By: Carlos Nair on 11-25-2024 Platelets (Bld) [#/Vol] 227 10*3/uL 150-450 [facility] CBC W/Diff, Automatedon 11-12 Absolute Lymph 0.74 X10 3/uL Low 0.83-4.51 [facility] Comment on above: Performed By: #### L 501.2450, L503.6005, L500.4050, L100.0100 ####[facility] [address] [place], [address] Absolute Neut 9.3 X10 3/uL High 2.0-7.7 [facility] Comment on above: Performed By: #### L 501.2450, L503.6005, L500.4050, L100.0100 ####[facility] [address] [place], [address] IG% 0.300 Normal 0.0-0.9 [facility] Comment on above: Result Comment: IG% - Immature Granulocytes (promyelocytes, myelocytes andmetamyelocytes) > 1% indicates that a LEFT SHIFT is Present. Performed By: #### L 501.2450, L503.6005, L500.4050, L100.0100 ####[facility] [address] [place], [address] Basophils/100 WBC (Bld) 0.5 % Normal 0-1 [facility] Comment on above: Performed By: #### L 501.2450, L503.6005, L500.4050, L100.0100 ####[facility] [address] [place], [address] Eosinophils/100 WBC (Bld) 1.3 % Normal 0-5 [facility] Comment on above: Performed By: #### L 501.2450, L503.6005, L500.4050, L100.0100 ####[facility] [address] [place], [address] Erythrocyte distribution width (RBC) [Ratio] 15.4 % High 11.6-14.6 [facility] Comment on above: Performed By: #### L 501.2450, L503.6005, L500.4050, L100.0100 ####[facility] [address] [place], [address] Lymphocytes/100 WBC (Bld) 6.8 % Low 19-41 [facility] Comment on above: Performed By: #### L 501.2450, L503.6005, L500.4050, L100.0100 ####[facility] [address] [place], [address] Monocytes/100 WBC (Bld) 6.4 % Normal 0-10 [facility] Comment on above: Performed By: #### L 501.2450, [id number], L500.4050, L100.0100 ####[facility] [address] [place], [address] Neutrophils/100 WBC (Bld) 84.7 % High 47-70 [facility] Comment on above: Performed By: #### L 501.2450, L503.6005, L500.4050, L100.0100 ####[facility] [address] [place], [address] Platelet mean volume (Bld) [Entitic vol] 11.0 fL Normal 6.2-12.0 [facility] Comment on above: Performed By: #### L 501.2450, L503.6005, L500.4050, L100.0100 ####[facility] [address] [place], [address] Platelets (Bld) [#/Vol] 227 10*3/uL Normal 150-450 [facility] Comment on above: Performed By: #### L 501.2450, L503.6005, L500.4050, L100.0100 ####[facility] [address] [place], [address] RDW SD 53.2 fl High 35.1-43.9 [facility] Comment on above: Performed By: #### L 501.2450, L503.6005, L500.4050, L100.0100 ####[facility] [address] [place], [address] Hematocrit (Bld) [Volume fraction] 42.3 % Normal 37-47 [facility] Comment on above: Performed By: #### L 501.2450, L503.6005, L500.4050, L100.0100 ####[facility] [address] [place], [address] Hemoglobin (Bld) [Mass/Vol] 13.9 g/dL Normal 12.0-15.0 [facility] Comment on above: Performed By: #### L 501.2450, L503.6005, L500.4050, L100.0100 ####[facility] [address] [place], [address] MCH (RBC) [Entitic mass] 30.7 pg Normal 27.0-32.0 [facility] Comment on above: Performed By: #### L 501.2450, L503.6005, L500.4050, L100.0100 ####[facility] [address] [place], [address] MCHC (RBC) [Mass/Vol] 32.9 g/dL Normal 32-36 [facility] Comment on above: Performed By: #### L 501.2450, L503.6005, L500.4050, L100.0100 ####[facility] [address] [place], [address] MCV (RBC) [Entitic vol] 93.4 fL Normal 81-99 [facility] Comment on above: Performed By: #### L 501.2450, L503.6005, L500.4050, L100.0100 ####[facility] [address] [place], [address] RBC (Bld) [#/Vol] 4.53 10*6/uL Normal 4.2-5.4 [facility] Comment on above: Performed By: #### L 501.2450, L503.6005, L500.4050, L100.0100 ####[facility] [address] [place], [address] WBC (Bld) [#/Vol] 10.9 10*3/uL Normal 4.4-11.0 [facility] Comment on above: Performed By: #### L 501.2450, L503.6005, L500.4050, L100.0100 ####[facility] [address] [place], [address] Carbon dioxide, total [Moles /volume] in Central venous bloodOrdered By: Carlos Nair on 11-25-2024 CO2 [Moles/Vol] 22.7 mmol/L 21.0-32.0 [facility] Chloride assayOrdered By: Brandy Nair on 11-25-2024 Chloride [Moles/Vol] 103 mmol/L 98-108 [facility] Comprehensive Metabolic Prof ilon 11-25-2024 Albumin [Mass/Vol] 4.3 g/dL Normal 3.5-5.0 [facility] Comment on above: Performed By: #### L 501.2450, L503.6005, L500.4050, L100.0100 ####[facility] [address] [place], [address] Albumin/Globulin [Mass ratio] 1.3 {ratio} Normal 0.9-2.4 [facility] Comment on above: Performed By: #### L 501.2450, L503.6005, L500.4050, L100.0100 ####[facility] [address] [place], [address] ALK PHOS 134 U/L High 35-104 [facility] Comment on above: Performed By: #### L 501.2450, L503.6005, L500.4050, L100.0100 ####[facility] [address] [place], [address] ALT [Catalytic activity/Vol] 19 U/L Normal <=34 [facility] Comment on above: Performed By: #### L 501.2450, L503.6005, L500.4050, L100.0100 ####[facility] [address] [place], [address] AST [Catalytic activity/Vol] 22 U/L Normal <=31 [facility] Comment on above: Performed By: #### L 501.2450, L503.6005, L500.4050, L100.0100 ####[facility] [address] [place], [address] Bilirubin [Mass/Vol] 0.81 mg/dL Normal 0.00-1.30 [facility] Comment on above: Performed By: #### L 501.2450, L503.6005, L500.4050, L100.0100 ####[facility] [address] [place], [address] BUN/CRE 7.1 RATIO Low 10-20 [facility] Comment on above: Performed By: #### L 501.2450, L503.6005, L500.4050, L100.0100 ####[facility] [address] [place], [address] Calcium [Mass/Vol] 9.6 mg/dL Normal 7.6-11.0 [facility] Comment on above: Performed By: #### L 501.2450, L503.6005, L500.4050, L100.0100 ####[facility] [address] [place], [address] Chloride [Moles/Vol] 103 mmol/L Normal 98-108 [facility] Comment on above: Performed By: #### L 501.2450, L503.6005, L500.4050, L100.0100 ####[facility] [address] [place], [address] CO2 [Moles/Vol] 22.7 mmol/L Normal 21.0-32.0 [facility] Comment on above: Performed By: #### L 501.2450, L503.6005, L500.4050, L100.0100 ####[facility] [address] [place], [address] Creatinine [Mass/Vol] 0.76 mg/dL Normal 0.70-1.20 [facility] Comment on above: Performed By: #### L 501.2450, L503.6005, L500.4050, L100.0100 ####[facility] [address] [place], [address] ECRCL 80.72 ml/min Normal 50-250 [facility] Comment on above: Performed By: #### L 501.2450, L503.6005, L500.4050, L100.0100 ####[facility] [address] [place], [address] GAP 11 Normal 5-15 [facility] Comment on above: Performed By: #### L 501.2450, L503.6005, L500.4050, L100.0100 ####[facility] [address] [place], [address] GFR/1.73 sq M.predicted among non-blacks MDRD (S/P/Bld) [Vol rate/Area] 98 mL/min/{1.73_m2} Normal >60 [facility] Comment on above: Result Comment: mL/m in/1.73m2 CKD-EPI Creatinine Equation (2020) Performed By: #### L 501.2450, L503.6005, L500.4050, L100.0100 ####[facility] [address] [place], [address] Globulin (S) [Mass/Vol] 3.4 g/dL Normal 2.2-4.2 [facility] Comment on above: Performed By: #### L 501.2450, L503.6005, L500.4050, L100.0100 ####[facility] [address] [place], [address] Glucose [Mass/Vol] 98 mg/dL Normal 70-99 [facility] Comment on above: Performed By: #### L 501.2450, L503.6005, L500.4050, L100.0100 ####[facility] [address] [place], [address] Potassium [Moles/Vol] 3.8 mmol/L Normal 3.3-5.1 [facility] Comment on above: Performed By: #### L 501.2450, L503.6005, L500.4050, L100.0100 ####[facility] [address] [place], [address] Sodium [Moles/Vol] 137 mmol/L Normal 133-145 [facility] Comment on above: Performed By: #### L 501.2450, L503.6005, L500.4050, L100.0100 ####[facility] [address] [place], [address] T PROT 7.7 g/dL Normal 5.9-8.4 [facility] Comment on above: Performed By: #### L 501.2450, L503.6005, L500.4050, L100.0100 ####[facility] [address] [place], [address] Urea nitrogen [Mass/Vol] 5 mg/dL Normal 4-19 [facility] Comment on above: Performed By: #### L 501.2450, L503.6005, L500.4050, L100.0100 ####[facility] [address] [place], [address] Emergency Department Summary on 11-25-2024 Emergency Department Summary Normal [facility] Eosinophil %Ordered By: Andrae Nair on 11-25-2024 Eosinophils/100 WBC (Bld) 1.3 % 0-5 [facility] Erythrocyte distribution wid th ratioOrdered By: Carlos Nair on 11-25-2024 Erythrocyte distribution width (RBC) [Ratio] 15.4 % High 11.6-14.6 [facility] Glomerular filtration rate ( GFR) estimation/1.73 sq m using serum, plasma, or whole bOrdered By: Carlos Nair on 11-25-2024 GFR/1.73 sq M.predicted among non-blacks MDRD (S/P/Bld) [Vol rate/Area] 98 mL/min/{1.73_m2} >60 [facility] Hematocrit Auto (Bld) [Volum e fraction]Ordered By: Carlos Nair on 11-25-2024 Hematocrit (Bld) [Volume fraction] 42.3 % 37-47 [facility] Hemoglobin measurementOrdere d By: Carlos Nair on 11-25-2024 Hemoglobin (Bld) [Mass/Vol] 13.9 g/dL 12.0-15.0 [facility] Immature granulocyte percent ageOrdered By: Carlos Nair on 11-25-2024 Immature granulocytes/100 WBC (Bld) 0.300 % 0.0-0.9 [facility] Ketones Test strip Ql (U)Ord ered By: Carlos Nair on 11-25-2024 Ketones Ql (U) Negative Negative [facility] Lactic Acidon 11-25-2024 Lactate [Moles/Vol] 1.3 mmol/L Normal 0.0-2.0 [facility] Comment on above: Order Comment: Y Performed By: #### L 501.2450, L503.6005, L500.4050, L100.0100 ####[facility] [address] [facility] [place], [place], [address] Lipaseon 11-25-2024 Lipase [Catalytic activity/Vol] 14 U/L Normal 13-75 [facility] Comment on above: Result Comment: Pleleonides rader note:LIPASE revised reference range effective 22.New Lipase methodology. Expected to produce lower valuesthan the previous assay method.NEW Reference Range: 13 - 75 U/L Performed By: #### L 501.2450, L503.6005, L500.4050, L100.0100 ####[facility] [address] [facility] [place], [address] Lymphocyte %Ordered By: Andrae Nair on 11-25-2024 Lymphocytes/100 WBC (Bld) 6.8 % Low 19-41 [facility] MCV (mean corpuscular volume ) determinationOrdered By: Carlos Nair on 11-25-2024 MCV (RBC) [Entitic vol] 93.4 fL 81-99 [facility] Mean corpuscular hemoglobin (MCH) determinationOrdered By: Carlos Nair on 11-25-2024 MCH (RBC) [Entitic mass] 30.7 pg 27.0-32.0 [facility] Monocyte percentageOrdered B y: Carlos Nair on 11-25-2024 Monocytes/100 WBC (Bld) 6.4 % 0-10 [facility] Mucus LM Ql (Urine sed)Order ed By: Carlos Nair on 11-25-2024 Mucus Ql (Urine sed) 0 SEEN /hpf [facility] Neutrophil %Ordered By: Andrae Nair on 11-25-2024 Neutrophils/100 WBC (Bld) 84.7 % High 47-70 [facility] Nitrite Test strip Ql (U)Ord ered By: Carlos Nair on 11-25-2024 Nitrite Ql (U) Negative Negative [facility] No Panel InformationOrdered By: Carlos Nair on 11-25-2024 22 U/L <32 [facility] Potassium measurement (mass/ volume)Ordered By: Carlos Nair on 11-25-2024 Potassium (Unsp spec) [Mass/Vol] 3.8 mmol/L 3.3-5.1 [facility] ,Urineon 11-25-2024 Beta HCG ( test) Ql (U) Negative Normal [facility] Comment on above: Result Comment: Very dilute urine specimens, as indicated by a low specificgravity, may not contain u.s. representative levels of hCG.If is still suspected, a first morning urinespecimen should be collected 48 hours later and tested. Performed By: #### L 400.7600, L400.0001 ####[facility] [address] [place], [place], [id number] Protein Test strip Ql (U)Ord ered By: Carlos Nair on 11-25-2024 Protein Ql (U) 30 mg/dl High Negative [facility] RBC Auto (Bld) [#/Vol]Ordere d By: Carlos Nair on 11-25-2024 RBC (Bld) [#/Vol] 4.53 10*6/uL 4.2-5.4 [facility] RDWOrdered By: Carlos Nair on 11-25-2024 RDW 53.2 fl High 35.1-43.9 [facility] Serum creatinine measurement (mass/volume)Ordered By: Carlos Nair on 11-25-2024 Creatinine [Mass/Vol] 0.76 mg/dL 0.70-1.20 [facility] Serum globulin measurementOr dered By: Carlos Nair on 11-25-2024 Globulin (S) [Mass/Vol] 3.4 g/dL 2.2-4.2 [facility] Serum glucose measurement (m ass/volume)Ordered By: Carlos Nair on 11-25-2024 Glucose [Mass/Vol] 98 mg/dL 70-99 [facility] Serum or plasma alanine hair otransferase (ALT) measurementOrdered By: Carlos Nair on 11-25-2024 ALT [Catalytic activity/Vol] 19 U/L <35 [facility] Serum or plasma albumin leslie urement (mass/volume)Ordered By: Carlos Nair on 11-25-2024 Albumin [Mass/Vol] 4.3 g/dL 3.5-5.0 [facility] Serum or plasma albumin/glob ulin mass ratioOrdered By: Carlos Nair on 11-25-2024 Albumin/Globulin [Mass ratio] 1.3 {ratio} 0.9-2.4 [facility] Serum or plasma alkaline delfin sphatase measurementOrdered By: Carlos Nair on 11-25-2024 ALP [Catalytic activity/Vol] 134 U/L High 35-104 [facility] Serum or plasma calcium leslie urement (mass/volume)Ordered By: Carlos Nair on 11-25-2024 Calcium [Mass/Vol] 9.6 mg/dL 7.6-11.0 [facility] Serum or plasma urea nitroge n measurement (mass/volume)Ordered By: Carlos Nair on 11-25-2024 Urea nitrogen [Mass/Vol] 5 mg/dL 4-19 [facility] Sodium levelOrdered By: Andrae Nair on 11-25-2024 Sodium [Moles/Vol] 137 mmol/L 133-145 [facility] Squamous epithelial cells de tection in urine sediment by light microscopyOrdered By: Carlos Nair on 11-25-2024 Epithelial cells.squamous LM Ql (Urine sed) 0-5 SEEN /hpf 5-10 [facility] Total proteinOrdered By: Jacinto Nair on 11-25-2024 Protein [Mass/Vol] 7.7 g/dL 5.9-8.4 [facility] Urinalysis, Completeon 11-25 EPI,SQUAMOUS 0-5 SEEN Normal 5-10 [facility] Comment on above: Order Comment: CLEAN CATCH Performed By: #### L 400.7600, L400.0001 ####[facility] [address] [place], [address] RBC 5-10 SEEN Normal 0-5 [facility] Comment on above: Order Comment: CLEAN CATCH Performed By: #### L 400.7600, L400.0001 ####[facility] [address] [place], [address] WBC 0-5 SEEN Normal 0-5 [facility] Comment on above: Order Comment: CLEAN CATCH Performed By: #### L 400.7600, L400.0001 ####[facility] [address] [place], [address] BACTERIA 0 SEEN Normal None Seen [facility] Comment on above: Order Comment: CLEAN CATCH Performed By: #### L 400.7600, L400.0001 ####[facility] [address] [place], [address] Mucus Ql (Urine sed) 0 SEEN Normal [facility] Comment on above: Order Comment: CLEAN CATCH Performed By: #### L 400.7600, L400.0001 ####[facility] [address] [place], [address] Urine clarityOrdered By: Kary cardoza Korey on 11-25-2024 Clarity (U) Clear Clear [facility] Urine color determinationOrd ered By: Carlos Nair on 11-25-2024 Color (U) Yellow Yellow [facility] Urine glucose detectionOrder ed By: Carlos Nair on 11-25-2024 Glucose Ql (U) Normal mg/dl Normal [facility] Urine leukocyte esterase det ection by dipstickOrdered By: Carlos Nair on 11-25-2024 Leukocyte esterase Test strip Ql (U) Negative Negative [facility] Urine pHOrdered By: Carlos mandel on 11-25-2024 pH (U) 7.0 [pH] 5.0 - 8.0 [facility] Urine testOrdered By: Carlos Nair on 11-25-2024 HCG ( test) Ql (U) Negative [facility] Urine sediment bacteria coun t by microscopy (number/high power field)Ordered By: Carlos Nair on 11-25-2024 Bacteria LM.HPF (Urine sed) [#/Area] 0 /[HPF] None Seen [facility] Urine specific gravity measu rementOrdered By: Carlos Nair on 11-25-2024 Specific gravity (U) [Rel density] 1.005 1.002-1.03 0 [facility] Urine urobilinogen measureme ntOrdered By: Carlos Nair on 11-25-2024 Urobilinogen Ql (U) Normal mg/dl Normal [facility] White blood cell (WBC) count Ordered By: Carlos Nair on 11-25-2024 WBC (Bld) [#/Vol] 10.9 10*3/uL 4.4-11.0 [facility] White blood cell countOrdere d By: Carlos Nair on 11-25-2024 White blood cell count 0-5 SEEN /hpf 0-5 [facility] 12 Lead EKGon 11-23-2024 12 Lead EKG Normal [facility] ERCP Biliary/Pancreason 11-12 ERCP Biliary/Pancreas Normal [facility] ERCP Reporton 11-23-2024 ERCP Report Normal [facility] MR/OP.PROVATon 11-23-2024 MR/OP.PROVAT Normal [facility] MR/POSTOP.ANEon 11-23-2024 MR/POSTOP.ANE Normal [facility] MR/YNZIKXHH7xy 11-23-2024 MR/POSTOPAN2 Normal [facility] MR/PAT.ANEon 10-24-2024 MR/PAT.ANE Normal [facility] Cardiology Visit Reporton Cardiology Visit Report Normal [facility] Pacemaker Checkon 10-03-2024 Pacemaker Check Normal [facility] Basic metabolic 2000 panelon 09-23-2024 Anion gap [Moles/Vol] 12 mmol/L 10 - 2 0 mmol/L [facility] Calcium [Mass/Vol] 9.9 mg/dL 8.6 - 10. 3 mg/dL [facility] Chloride [Moles/Vol] 94 mmol/L Low 98 - 10 7 mmol/L [facility] CO2 [Moles/Vol] 32 mmol/L 21 - 32 mmol/L [facility] Creatinine [Mass/Vol] 0.92 mg/dL 0.50 - 1.05 mg/dL [facility] GFR/1.73 sq M.predicted among non-blacks MDRD (S/P/Bld) [Vol rate/Area] 78 mL/min/{1.73_m2} - PINF [facility] Comment on above: Calculations of vidal mated GFR are performed using the 2020 CKD-EPI Study Refit equation without the race variable for the IDMS-Traceable creatinine methods. https://jasn.asnjournals.org/content//ASN.990 7960806 Glucose [Mass/Vol] 89 mg/dL 74 - 99 mg/dL [facility] Interpretation and review of laboratory results Abnormal [facility] Potassium [Moles/Vol] 3.8 mmol/L 3.5 - 5.3 mmol/L [facility] Sodium [Moles/Vol] 134 mmol/L Low 136 - 145 mmol/L [facility] Urea nitrogen [Mass/Vol] 30 mg/dL High 6 - 23 mg/dL [facility] Anion gap [Moles/Vol] 12 mmol/L Normal 10-20 [facility] Comment on above: Performed By: #### 5 8077-9 #### JENNIFER ALBARRAN ([id number]) [facility] ([facility]) [facility] [place] [address] Calcium [Mass/Vol] 9.9 mg/dL Normal 8.6-10.3 [facility] Comment on above: Performed By: #### 5 8077-9 #### JENNIFER ALBARRAN ([id number]) [facility] ([facility]) [address] [place] [phone] Chloride [Moles/Vol] 94 mmol/L Low 98-107 [facility] Comment on above: Performed By: #### 5 8077-9 #### JENNIFER ALBARRAN ([id number]) [facility] ([facility]) [address] [place] [address] CO2 [Moles/Vol] 32 mmol/L Normal 21-32 [facility] Comment on above: Performed By: #### 5 8077-9 #### JENNIFER ALBARRAN ([id number]) [facility] ([facility]) [address] [place] [phone] Creatinine [Mass/Vol] 0.92 mg/dL Normal 0.50-1.05 [facility] Comment on above: Performed By: #### 5 8077-9 #### JENNIFER ALBARRAN ([id number]) [facility] ([facility]) [address] [place] [address] Glomerular filtration rate/1.73 sq M.predicted 78 mL/min/1.73m*2 Normal >60 [facility] Comment on above: Result Comment: Calc ulations of estimated GFR are performed using the 2020 CKD-EPI Study Refit equation without the race variable for the IDMS-Traceable creatinine methods. https://jasn.asnjournals.org/content///ASN.983 3346317 Performed By: #### 5 8077-9 #### JENNIFER ALBARRAN ([id number]) [facility] ([facility]) [address] [place] [address] Glucose [Mass/Vol] 89 mg/dL Normal 74-99 [facility] Comment on above: Performed By: #### 5 8077-9 #### JENNIFER ALBARRAN ([id number]) [facility] ([facility]) [address] [place] [address] Potassium [Moles/Vol] 3.8 mmol/L Normal 3.5-5.3 [facility] Comment on above: Performed By: #### 5 8077-9 #### JENNIFER ALBARRAN ([id number]) [facility] ([facility]) [address] [place] [address] Sodium [Moles/Vol] 134 mmol/L Low 136-145 [facility] Comment on above: Performed By: #### 5 8077-9 #### JENNIFER ALBARRAN ([id number]) [facility] ([facility]) [address] [place] [address] Urea nitrogen [Mass/Vol] 30 mg/dL High 6-23 [facility] Comment on above: Performed By: #### 5 8077-9 #### JENNIFER ALBARRAN ([id number]) [facility] ([facility]) [address] [place] [phone] CBC panel Auto (Bld)on 09-23 Erythrocyte distribution width (RBC) [Ratio] 14.4 % 11.5 - 14.5 % [facility] Hematocrit (Bld) [Volume fraction] 49.8 % High 36.0 - 46.0 % [facility] Hemoglobin (Bld) [Mass/Vol] 16.6 g/dL High 12.0 - 16.0 g/dL [facility] Interpretation and review of laboratory results Abnormal [facility] MCH (RBC) [Entitic mass] 30.2 pg 26. 0 - 34.0 pg [facility] MCHC (RBC) [Mass/Vol] 33.3 g/dL 32.0 - 36.0 g/dL [facility] MCV (RBC) [Entitic vol] 91 fL 80 - 100 fL [facility] Nucleated RBC/100 WBC (Bld) [Ratio] 0 % [facility] Platelets (Bld) [#/Vol] 326 10*3/uL [facility] RBC (Bld) [#/Vol] 5.5 10*6/uL [facility] WBC (Bld) [#/Vol] 13.9 10*3/uL [facility] Erythrocyte distribution width (RBC) [Ratio] 14.4 % Normal 11.5-14.5 [facility] Comment on above: Performed By: #### 5 8077-9 #### JENNIFER ALBARRAN ([id number]) [facility] ([facility]) [address] [place] [address] Hematocrit (Bld) [Volume fraction] 49.8 % High 36.0-46.0 [facility] Comment on above: Performed By: #### 5 8077-9 #### JENNIFER ALBARRAN ([id number]) [facility] ([facility]) [address] [place] [address] [address] Hemoglobin (Bld) [Mass/Vol] 16.6 g/dL High 12.0-16.0 [facility] Comment on above: Performed By: #### 5 8077-9 #### JENNIFER ALBARRAN ([id number]) [facility] ([facility]) [address] [place] [address] 54388 MCH (RBC) [Entitic mass] 30.2 pg Normal 26.0-34.0 [facility] Comment on above: Performed By: #### 5 8077-9 #### JENNIFER ALBARRAN ([id number]) [facility] ([facility]) [address] [place] [address] 03841 MCHC (RBC) [Mass/Vol] 33.3 g/dL Normal 32.0-36.0 [facility] Comment on above: Performed By: #### 5 8077-9 #### JENNIFER ALBARRAN ([id number]) [facility] ([facility]) [address] [place] [address] 67579 MCV (RBC) [Entitic vol] 91 fL Normal 80-100 [facility] Comment on above: Performed By: #### 5 8077-9 #### JENNIFER ALBARRAN ([id number]) [facility] ([facility]) [facility] [place] [address] Nucleated RBC/100 WBC (Bld) [Ratio] 0.0 /100 WBCs Normal 0.0-0.0 [facility] Comment on above: Performed By: #### 5 8077-9 #### JENNIFER ALBARRAN ([id number]) [facility] ([facility]) [address] [place] [address] 66958 Platelets (Bld) [#/Vol] 326 x10*3/uL Normal 150-450 [facility] Comment on above: Performed By: #### 5 8077-9 #### JENNIFER ALBARRAN ([id number]) [facility] ([facility]) [address] [place] [address] RBC (Bld) [#/Vol] 5.50 x10*6/uL High 4.00-5.20 [facility] Comment on above: Performed By: #### 5 8077-9 #### JENNIFER ALBARRAN ([id number]) [facility] ([facility]) [address] [place] [address] 92681 WBC (Bld) [#/Vol] 13.9 x10*3/uL High 4.4-11.3 [facility] Comment on above: Performed By: #### 5 8077-9 #### JENNIFER ALBARRAN ([id number]) [facility] ([facility]) [address] [place], [place] [id number] ProcalcitoninOrdered By: Yancy Olivera on 09-23-2024 Procalcitonin [Mass/Vol] 0.04 ng/mL ARAVIND F - 0.07 ng/mL [facility] Procalcitoninon 09-23-2024 Procalcitonin [Mass/Vol] 0.04 ng/mL Normal <=0.07 [facility] Comment on above: Order Comment: Proca [...] By: #### 5 8077-9 #### RODRIGUEZ AVIS ([id number]) [facility] ([facility]) [address] [place] [address] Procalcitonin [Mass/Vol]Orde red By: Mariangel Olivera on 09-23-2024 Interpretation and review of laboratory results Normal [facility] Procalcitonin (PCT) results measured serially can aid [...] on immunomodulatory medications has not been evaluated. [facility] Basic metabolic 2000 panelon 09-22-2024 Anion gap [Moles/Vol] 13 mmol/L 10 - 2 0 mmol/L [facility] Calcium [Mass/Vol] 10.4 mg/dL High 8.6 - 10. 3 mg/dL [facility] Chloride [Moles/Vol] 96 mmol/L Low 98 - 10 7 mmol/L [facility] CO2 [Moles/Vol] 31 mmol/L 21 - 32 mmol/L [facility] Creatinine [Mass/Vol] 0.95 mg/dL 0.50 - 1.05 mg/dL [facility] GFR/1.73 sq M.predicted among non-blacks MDRD (S/P/Bld) [Vol rate/Area] 75 mL/min/{1.73_m2} - PINF [facility] Comment on above: Calculations of vidal mated GFR are performed using the 2020 CKD-EPI Study Refit equation without the race variable for the IDMS-Traceable creatinine methods. https://jasn.asnjournals.org/content//ASN.561 4860709 Glucose [Mass/Vol] 84 mg/dL 74 - 99 mg/dL [facility] Interpretation and review of laboratory results Abnormal [facility] Potassium [Moles/Vol] 3.6 mmol/L 3.5 - 5.3 mmol/L [facility] Sodium [Moles/Vol] 136 mmol/L 136 - 145 mmol/L [facility] Urea nitrogen [Mass/Vol] 25 mg/dL High 6 - 23 mg/dL [facility] Anion gap [Moles/Vol] 13 mmol/L Normal 10-20 [facility] Comment on above: Performed By: #### 5 8077-9 #### RODRIGUEZ AVIS ([id number]) [facility] ([facility]) [address] [place] [address] Calcium [Mass/Vol] 10.4 mg/dL High 8.6-10.3 [facility] Comment on above: Performed By: #### 5 8077-9 #### JENNIFER ALBARRAN ([id number]) [facility] ([facility]) [address] [place] [address] Chloride [Moles/Vol] 96 mmol/L Low 98-107 [facility] Comment on above: Performed By: #### 5 8077-9 #### JENNIFER ALBARRAN ([id number]) [facility] ([facility]) [facility] [place] [address] CO2 [Moles/Vol] 31 mmol/L Normal 21-32 [facility] Comment on above: Performed By: #### 5 8077-9 #### JENNIFER ALBARRAN ([id number]) [facility] ([facility]) [address] [place] [address] 04238 Creatinine [Mass/Vol] 0.95 mg/dL Normal 0.50-1.05 [facility] Comment on above: Performed By: #### 5 8077-9 #### JENNIFER ALBARRAN ([id number]) [facility] ([facility]) [address] [place] [address] 49553 Glomerular filtration rate/1.73 sq M.predicted 75 mL/min/1.73m*2 Normal >60 [facility] Comment on above: Result Comment: Calc ulations of estimated GFR are performed using the 2020 CKD-EPI Study Refit equation without the race variable for the IDMS-Traceable creatinine methods. https://jasn.asnjournals.org/content/early//ASN.056 8582395 Performed By: #### 5 8077-9 #### JENNIFER ALBARRAN ([id number]) [facility] ([facility]) [address] [place] [address] 10493 Glucose [Mass/Vol] 84 mg/dL Normal 74-99 [facility] Comment on above: Performed By: #### 5 8077-9 #### JENNIFER ALBARRAN ([id number]) [facility] ([facility]) [facility] [place] [address] Potassium [Moles/Vol] 3.6 mmol/L Normal 3.5-5.3 [facility] Comment on above: Performed By: #### 5 8077-9 #### JENNIFER ALBARRAN ([id number]) [facility] ([facility]) [facility] [place] [address] Sodium [Moles/Vol] 136 mmol/L Normal 136-145 [facility] Comment on above: Performed By: #### 5 8077-9 #### JENNIFER ALBARRAN ([id number]) [facility] ([facility]) [facility] [place] [address] Urea nitrogen [Mass/Vol] 25 mg/dL High 6-23 [facility] Comment on above: Performed By: #### 5 8077-9 #### JENNIFER ALBARRAN ([id number]) [facility] ([facility]) [address] [place] [address] 19239 CBC panel Auto (Bld)on 09-22 Erythrocyte distribution width (RBC) [Ratio] 14.6 % High 11.5 - 14.5 % [facility] Hematocrit (Bld) [Volume fraction] 46.4 % High 36.0 - 46.0 % [facility] Hemoglobin (Bld) [Mass/Vol] 15.1 g/dL 12.0 - 16.0 g/dL [facility] Interpretation and review of laboratory results Abnormal [facility] MCH (RBC) [Entitic mass] 30.5 pg 26. 0 - 34.0 pg [facility] MCHC (RBC) [Mass/Vol] 32.5 g/dL 32.0 - 36.0 g/dL [facility] MCV (RBC) [Entitic vol] 94 fL 80 - 100 fL [facility] Nucleated RBC/100 WBC (Bld) [Ratio] 0 % [facility] Platelets (Bld) [#/Vol] 319 10*3/uL [facility] RBC (Bld) [#/Vol] 4.95 10*6/uL [facility] WBC (Bld) [#/Vol] 12.8 10*3/uL High [facility] Erythrocyte distribution width (RBC) [Ratio] 14.6 % High 11.5-14.5 [facility] Comment on above: Performed By: #### 5 8077-9 #### JENNIFER ALBARRAN ([id number]) [facility] ([facility]) [address] [place] [address] 79427 Hematocrit (Bld) [Volume fraction] 46.4 % High 36.0-46.0 [facility] Comment on above: Performed By: #### 5 8077-9 #### JENNIFER ALBARRAN ([id number]) [facility] ([facility]) [address] [place] [address] 98933 Hemoglobin (Bld) [Mass/Vol] 15.1 g/dL Normal 12.0-16.0 [facility] Comment on above: Performed By: #### 5 8077-9 #### JENNIFER ALBARRAN ([id number]) [facility] ([facility]) [address] [place] [address] 20199 MCH (RBC) [Entitic mass] 30.5 pg Normal 26.0-34.0 [facility] Comment on above: Performed By: #### 5 8077-9 #### JENNIFER ALBARRAN ([id number]) [facility] ([facility]) [address] [place] [address] 34763 MCHC (RBC) [Mass/Vol] 32.5 g/dL Normal 32.0-36.0 [facility] Comment on above: Performed By: #### 5 8077-9 #### JENNIFER ALBARRAN ([id number]) [facility] ([facility]) [address] [place] [address] 76603 MCV (RBC) [Entitic vol] 94 fL Normal 80-100 [facility] Comment on above: Performed By: #### 5 8077-9 #### JENNIFER ALBARRAN ([id number]) [facility] ([facility]) [address] [place] [address] 07522 Nucleated RBC/100 WBC (Bld) [Ratio] 0.0 /100 WBCs Normal 0.0-0.0 [facility] Comment on above: Performed By: #### 5 8077-9 #### JENNIFER ALBARRAN ([id number]) [facility] ([facility]) [facility] [place] [address] Platelets (Bld) [#/Vol] 319 x10*3/uL Normal 150-450 [facility] Comment on above: Performed By: #### 5 8077-9 #### JENNIFER ALBARRAN ([id number]) [facility] ([facility]) [address] [place] [address] RBC (Bld) [#/Vol] 4.95 x10*6/uL Normal 4.00-5.20 [facility] Comment on above: Performed By: #### 5 8077-9 #### JENNIFER ALBARRAN ([id number]) [facility] ([facility]) [facility] [place] [address] WBC (Bld) [#/Vol] 12.8 x10*3/uL High 4.4-11.3 [facility] Comment on above: Performed By: #### 5 8077-9 #### JENNIFER ALBARRAN ([id number]) [facility] ([facility]) [address] [place] [address] CT ABDOMEN PELVIS WO IV CONT [facility] 09-22-2024 CT ABDOMEN PELVIS WO IV CONTRAST Interpreted By: Giacomo Soriano, STUDY: CT ABDOMEN PELVIS WO IV CONTRAST; 09/22/2024 11:47 am INDICATION: Signs/Symptoms:rt flank pain ro kidney stones hematuria. COMPARISON: 09/21/2024 ACCESSION NUMBER(S): [id number] ORDERING CLINICIAN: RISHABH EL TECHNIQUE: CT of [...] Giacomo Soriano 09/22/2024 1:15 PM Dictation workstation: [id number] [facility] CT Abdomen WO contraston Small area of consolidation in the left lower lobe raising suspicion for pneumonia. Moderate colonic stool burden, correlate for constipation. Sigmoid colonic diverticulosis. Signed by: Giacomo Soriano 09/22/2024 1:15 PM Dictation workstation: [id number] [facility] Interpreted By: Giacomo Soriano, STUDY: CT ABDOMEN PELVIS WO IV CONTRAST; 09/22/2024 11:47 am INDICATION: Signs/Symptoms:rt flank pain ro kidney stones hematuria. COMPARISON: 09/21/2024 ACCESSION NUMBER(S): [id number] ORDERING CLINICIAN: RISHABH EL TECHNIQUE: CT of [...] kidney stones hematuria. COMPARISON: 09/21/2024 ACCESSION NUMBER(S): [id number] ORDERING CLINICIAN: RISHABH EL TECHNIQUE: CT of [...] Giacomo Soriano 09/22/2024 1:15 PM Dictation workstation: [id number] [facility] Work Phone: Radiology Study observation (narrative) [facility] Work Phone: CT Abdomen WO contrastOrdere d By: Giacomo Soriano on 09-22-2024 [facility] Work Phone: Lactateon 09-22-2024 Lactate [Moles/Vol] 1.2 mmol/L 0.4 - 2. 0 mmol/L [facility] Lactate [Moles/Vol] 1.2 mmol/L Normal 0.4-2.0 [facility] Comment on above: Order Comment: Venip uncture immediately after or during the administration of Metamizole may lead to falsely low results. Testing should be performed immediately prior to Metamizole dosing. Performed By: #### 5 8077-9 #### RODRIGUEZ AVIS ([id number]) [facility] ([facility]) [address] [place] [address] Lactate [Moles/Vol]on 2024 Interpretation and review of laboratory results Normal [facility] Venipuncture immedia tely after or during the administration of Metamizole may lead to falsely low results. Testing should be performed immediately prior to Metamizole dosing. [facility] CBC W Auto Differential pane l (Bld)on 09-21-2024 Basophils (Bld) [#/Vol] 0.01 10*3/uL [facility] Basophils/100 WBC (Bld) 0.1 % 0.0 - 2.0 % [facility] Eosinophils (Bld) [#/Vol] 0.01 10*3/uL [facility] Eosinophils/100 WBC (Bld) 0.1 % 0.0 - 6.0 % [facility] Erythrocyte distribution width (RBC) [Ratio] 14.9 % High 11.5 - 14.5 % [facility] Hematocrit (Bld) [Volume fraction] 40.7 % 36.0 - 46.0 % [facility] Hemoglobin (Bld) [Mass/Vol] 13.1 g/dL 12.0 - 16.0 g/dL [facility] Immature granulocytes (Bld) [#/Vol] 0.09 10*3/uL [facility] Immature granulocytes/100 WBC (Bld) 0.6 % 0.0 - 0.9 % [facility] Comment on above: Immature Granulocyte Count (IG) includes promyelocytes, myelocytes and metamyelocytes but does not include bands. Percent differential counts (%) should be interpreted in the context of the absolute cell counts (cells/UL). Interpretation and review of laboratory results Abnormal [facility] Lymphocytes (Bld) [#/Vol] 0.65 10*3/uL Low [facility] Lymphocytes/100 WBC (Bld) 4.2 % 13.0 - 44.0 % [facility] MCH (RBC) [Entitic mass] 30.3 pg 26. 0 - 34.0 pg [facility] MCHC (RBC) [Mass/Vol] 32.2 g/dL 32.0 - 36.0 g/dL [facility] MCV (RBC) [Entitic vol] 94 fL 80 - 100 fL [facility] Monocytes (Bld) [#/Vol] 0.37 10*3/uL [facility] Monocytes/100 WBC (Bld) 2.4 % 2.0 - 10.0 % [facility] Neutrophils (Bld) [#/Vol] 14.39 10*3/uL High [facility] Comment on above: Percent differential counts (%) should be interpreted in the context of the absolute cell counts (cells/uL). Neutrophils/100 WBC (Bld) 92.6 % 40.0 - 80.0 % [facility] Nucleated RBC/100 WBC (Bld) [Ratio] 0 % [facility] Platelets (Bld) [#/Vol] 276 10*3/uL [facility] RBC (Bld) [#/Vol] 4.32 10*6/uL [facility] WBC (Bld) [#/Vol] 15.5 10*3/uL High [facility] Basophils (Bld) [#/Vol] 0.01 x10*3/uL Normal 0.00-0.10 [facility] Comment on above: Performed By: #### 5 7021-8 #### RODRIGUEZ AVIS ([id number]) [facility] ([facility]) [address] [place] [address] Basophils/100 WBC (Bld) 0.1 % Normal 0.0-2.0 [facility] Comment on above: Performed By: #### 5 7021-8 #### JENNIFER ALBARRAN ([id number]) [facility] ([facility]) [address] [place] [address] 73508 Eosinophils (Bld) [#/Vol] 0.01 x10*3/uL Normal 0.00-0.70 [facility] Comment on above: Performed By: #### 5 7021-8 #### JENNIFER ALBARRAN ([id number]) [facility] ([facility]) [address] [place] [address] 09780 Eosinophils/100 WBC (Bld) 0.1 % Normal 0.0-6.0 [facility] Comment on above: Performed By: #### 5 7021-8 #### JENNIFER ALBARRAN ([id number]) [facility] ([facility]) [address] [place] [address] 86061 Erythrocyte distribution width (RBC) [Ratio] 14.9 % High 11.5-14.5 [facility] Comment on above: Performed By: #### 5 7021-8 #### JENNIFER ALBARRAN ([id number]) [facility] ([facility]) [address] [place] [address] 00497 Hematocrit (Bld) [Volume fraction] 40.7 % Normal 36.0-46.0 [facility] Comment on above: Performed By: #### 5 7021-8 #### JENNIFER ALBARRAN ([id number]) [facility] ([facility]) [address] [place] [address] 28221 Hemoglobin (Bld) [Mass/Vol] 13.1 g/dL Normal 12.0-16.0 [facility] Comment on above: Performed By: #### 5 7021-8 #### JENNIFER ALBARRAN ([id number]) [facility] ([facility]) [address] [place] [address] 16277 Immature granulocytes (Bld) [#/Vol] 0.09 x10*3/uL Normal 0.00-0.70 [facility] Comment on above: Performed By: #### 5 7021-8 #### JENNIFER ALBARRAN ([id number]) [facility] ([facility]) [address] [place] [address] 86742 Immature granulocytes/100 WBC (Bld) 0.6 % Normal 0.0-0.9 [facility] Comment on above: Result Comment: Samina ture Granulocyte Count (IG) includes promyelocytes, myelocytes and metamyelocytes but does not include bands. Percent differential counts (%) should be interpreted in the context of the absolute cell counts (cells/UL). Performed By: #### 5 7021-8 #### JENNIEFR ALBARRAN ([id number]) [facility] ([facility]) [address] [place] [address] Lymphocytes (Bld) [#/Vol] 0.65 x10*3/uL Low 1.20-4.80 [facility] Comment on above: Performed By: #### 5 7021-8 #### JENNIFER ALBARRAN ([id number]) [facility] ([facility]) [address] [place] [address] 06113 Lymphocytes/100 WBC (Bld) 4.2 % Normal 13.0-44.0 [facility] Comment on above: Performed By: #### 5 7021-8 #### JENNIFER ALBARRAN ([id number]) [facility] ([facility]) [address] [place] [address] 13329 MCH (RBC) [Entitic mass] 30.3 pg Normal 26.0-34.0 [facility] Comment on above: Performed By: #### 5 7021-8 #### JENNIFER ALBARRAN ([id number]) [facility] ([facility]) [address] [place] [address] 77779 MCHC (RBC) [Mass/Vol] 32.2 g/dL Normal 32.0-36.0 [facility] Comment on above: Performed By: #### 5 7021-8 #### JENNIFER ALBARRAN ([id number]) [facility] ([facility]) [address] [place] [address] 98554 MCV (RBC) [Entitic vol] 94 fL Normal 80-100 [facility] Comment on above: Performed By: #### 5 7021-8 #### JENNIFER ALBARRAN ([id number]) [facility] ([facility]) [address] [place] [address] 48537 Monocytes (Bld) [#/Vol] 0.37 x10*3/uL Normal 0.10-1.00 [facility] Comment on above: Performed By: #### 5 7021-8 #### JENNIFER ALBARRAN ([id number]) [facility] ([facility]) [address] [place] [address] 35032 Monocytes/100 WBC (Bld) 2.4 % Normal 2.0-10.0 [facility] Comment on above: Performed By: #### 5 7021-8 #### JENNIFER ALBARRAN ([id number]) [facility] ([facility]) [address] [place] [address] 18552 Neutrophils (Bld) [#/Vol] 14.39 x10*3/uL High 1.20-7.70 [facility] Comment on above: Result Comment: Perc ent differential counts (%) should be interpreted in the context of the absolute cell counts (cells/uL). Performed By: #### 5 7021-8 #### JENNIFER ALBARRAN ([id number]) [facility] ([facility]) [address] [place] [address] 17198 Neutrophils/100 WBC (Bld) 92.6 % Normal 40.0-80.0 [facility] Comment on above: Performed By: #### 5 7021-8 #### JENNIFER ALBARRAN ([id number]) [facility] ([facility]) [address] [place] [address] 17615 Nucleated RBC/100 WBC (Bld) [Ratio] 0.0 /100 WBCs Normal 0.0-0.0 [facility] Comment on above: Performed By: #### 5 7021-8 #### JENNIFER ALBARRAN ([id number]) [facility] ([facility]) [address] [place] [address] 48641 Platelets (Bld) [#/Vol] 276 x10*3/uL Normal 150-450 [facility] Comment on above: Performed By: #### 5 7021-8 #### JENNIFER ALBARRAN ([id number]) [facility] ([facility]) [address] [place] [address] RBC (Bld) [#/Vol] 4.32 x10*6/uL Normal 4.00-5.20 [facility] Comment on above: Performed By: #### 5 7021-8 #### JENNIFER LUCASHRLI ([id number]) [facility] ([facility]) [address] [place] [address] 35441 WBC (Bld) [#/Vol] 15.5 x10*3/uL High 4.4-11.3 [facility] Comment on above: Performed By: #### 5 7021-8 #### JENNIFER ALBARRAN ([id number]) [facility] ([facility]) [address] [place] [address] CT Abdomen and Pelvis W cont rast [...] Deondre Davila 09/21/2024 1:44 AM Dictation workstation: [id number] Interpreted By: Deondre Davila, STUDY: CT ABDOMEN PELVIS W IV CONTRAST; 09/21/2024 1:33 am INDICATION: Signs/Symptoms:abd pain. COMPARISON: Same day CTA of the chest. ACCESSION NUMBER(S): [id number] ORDERING CLINICIAN: ROCKY EVERETT TECHNIQUE: Contiguous axial [...] day CTA of the chest. ACCESSION NUMBER(S): [id number] ORDERING CLINICIAN: ROCKY EVERETT TECHNIQUE: Contiguous axial [...] Deondre Davila 09/21/2024 1:44 AM Dictation workstation: [id number] [facility] Work Phone: [facility] Work Phone: Radiology Study observation (narrative) [facility] Work Phone: CT Chest W contrast IV [...] along the fissures in the lower lobes, jusmd-kovhsbe-ayrv-left. 3. Mild cardiomegaly with some reflux of contrast into the hepatic veins and IVC, findings that may be seen in the setting of early right heart strain. Correlate with echocardiogram. MACRO: None Signed by: Deondre Davila 09/21/2024 1:38 AM Dictation workstation: [id number] [facility] Interpreted By: Deondre Davila, STUDY: CT ANGIO CHEST FOR PULMONARY EMBOLISM; 09/21/2024 1:31 am INDICATION: Signs/Symptoms:sob - hx of PE - not anticoagulated. COMPARISON: None ACCESSION NUMBER(S): [id number] ORDERING CLINICIAN: ROCKY EVERETT TECHNIQUE: Helical data [...] - not anticoagulated. COMPARISON: None ACCESSION NUMBER(S): [id number] ORDERING CLINICIAN: ROCKY EVERETT TECHNIQUE: Helical data [...] along the fissures in the lower lobes, qimyj-ulrqdlt-vnhb-left. 3. Mild cardiomegaly with some reflux of contrast into the hepatic veins and IVC, findings that may be seen in the setting of early right heart strain. Correlate with echocardiogram. MACRO: None Signed by: Deondre Davila 09/21/2024 1:38 AM Dictation workstation: [id number] [facility] Work Phone: Radiology Study observation (narrative) [facility] Work Phone: CT Chest W contrast IV and C T angiogram Pulmonary arteries for pulmonary embolus W contrast IVOrdered By: Deondre Davila on 09-21-2024 [facility] Work Phone: Comprehensive metabolic 2000 panelon 09-21-2024 Albumin BCP dye [Mass/Vol] 4.2 g/dL 3.4 - 5.0 g/dL [facility] ALP [Catalytic activity/Vol] 105 U/L 33 - 110 U/L [facility] [facility] ALT With P-5'-P [Catalytic activity/Vol] 212 U/L High 7 - 45 U/L [facility] Comment on above: Patients treated wit h Sulfasalazine may generate falsely decreased results for ALT. Anion gap [Moles/Vol] 13 mmol/L 10 - 2 0 mmol/L [facility] AST With P-5'-P [Catalytic activity/Vol] 24 U/L 9 - 39 U/L [facility] Bilirubin [Mass/Vol] 1 mg/dL 0.0 - 1 .2 mg/dL [facility] Calcium [Mass/Vol] 9.8 mg/dL 8.6 - 10. 3 mg/dL [facility] Chloride [Moles/Vol] 106 mmol/L 98 - 10 7 mmol/L [facility] CO2 [Moles/Vol] 21 mmol/L 21 - 32 mmol/L [facility] Creatinine [Mass/Vol] 0.82 mg/dL 0.50 - 1.05 mg/dL [facility] GFR/1.73 sq M.predicted among non-blacks MDRD (S/P/Bld) [Vol rate/Area] 90 mL/min/{1.73_m2} - PINF [facility] Comment on above: Calculations of vidal mated GFR are performed using the 2020 CKD-EPI Study Refit equation without the race variable for the IDMS-Traceable creatinine methods. https://jasn.asnjournals.org/content//ASN.720 9429327 Glucose [Mass/Vol] 144 mg/dL High 74 - 99 mg/dL [facility] Potassium [Moles/Vol] 4.1 mmol/L 3.5 - 5.3 mmol/L [facility] Protein [Mass/Vol] 6.5 g/dL 6.4 - 8.2 g/dL [facility] Sodium [Moles/Vol] 136 mmol/L 136 - 145 mmol/L [facility] Urea nitrogen [Mass/Vol] 21 mg/dL 6 - 23 mg/dL [facility] Albumin BCP dye [Mass/Vol] 4.2 g/dL Normal 3.4-5.0 [facility] Comment on above: Performed By: #### 2 4323-8 #### JENNIFER ALBARRAN ([id number]) [facility] ([facility]) [address] [place] [address] ALP [Catalytic activity/Vol] 105 U/L Normal 33-110 [facility] Comment on above: Performed By: #### 2 4323-8 #### JENNIFER ALBARRAN ([id number]) [facility] ([facility]) [facility] [place] [address] ALT With P-5'-P [Catalytic activity/Vol] 212 U/L High 7-45 [facility] Comment on above: Result Comment: Makayla ents treated with Sulfasalazine may generate falsely decreased results for ALT. Performed By: #### 2 4323-8 #### JENNIFER ALBARRAN ([id number]) [facility] ([facility]) [facility] [place] [address] Anion gap [Moles/Vol] 13 mmol/L Normal 10-20 [facility] Comment on above: Performed By: #### 2 4323-8 #### JENNIFER ALBARRAN ([id number]) [facility] ([facility]) [address] [place] [address] AST With P-5'-P [Catalytic activity/Vol] 24 U/L Normal 9-39 [facility] Comment on above: Performed By: #### 2 432-8 #### JENNIFER ALBARRAN ([id number]) [facility] ([facility]) [address] [place] [address] Bilirubin [Mass/Vol] 1.0 mg/dL Normal 0.0-1.2 [facility] Comment on above: Performed By: #### 2 4322-8 #### JENNIFER ALBARRAN ([id number]) [facility] ([facility]) [address] [place] [address] Calcium [Mass/Vol] 9.8 mg/dL Normal 8.6-10.3 [facility] Comment on above: Performed By: #### 2 4322-8 #### JENNIFER ALBARRAN ([id number]) [facility] ([facility]) [address] [place] [address] Chloride [Moles/Vol] 106 mmol/L Normal 98-107 [facility] Comment on above: Performed By: #### 2 4322-8 #### JENNIFER ALBARRAN ([id number]) [facility] ([facility]) [address] [place] [address] CO2 [Moles/Vol] 21 mmol/L Normal 21-32 [facility] Comment on above: Performed By: #### 2 4322-8 #### JENNIFER ALBARRAN ([id number]) [facility] ([facility]) [address] [place] [address] Creatinine [Mass/Vol] 0.82 mg/dL Normal 0.50-1.05 [facility] Comment on above: Performed By: #### 2 432-8 #### JENNIFER ALBARRAN ([id number]) [facility] ([facility]) [address] [place] [address] Glomerular filtration rate/1.73 sq M.predicted 90 mL/min/1.73m*2 Normal >60 [facility] Comment on above: Result Comment: Calc ulations of estimated GFR are performed using the 2020 CKD-EPI Study Refit equation without the race variable for the IDMS-Traceable creatinine methods. https://jasn.asnjournals.org/content//ASN.821 2081846 Performed By: #### 2 4323-8 #### JENNIFER ALBARRAN ([id number]) [facility] ([facility]) [address] [place] [address] Glucose [Mass/Vol] 144 mg/dL High 74-99 [facility] Comment on above: Performed By: #### 2 4323-8 #### JENNIFER ALBARRAN ([id number]) [facility] ([facility]) [address] [place] [address] Potassium [Moles/Vol] 4.1 mmol/L Normal 3.5-5.3 [facility] Comment on above: Performed By: #### 2 4323-8 #### JENNIFER ALBARRAN ([id number]) [facility] ([facility]) [address] [place] [address] Protein [Mass/Vol] 6.5 g/dL Normal 6.4-8.2 [facility] Comment on above: Performed By: #### 2 4323-8 #### JENNIFER ALBARRAN ([id number]) [facility] ([facility]) [address] [place] [address] Sodium [Moles/Vol] 136 mmol/L Normal 136-145 [facility] Comment on above: Performed By: #### 2 4323-8 #### JENNIFER ALBARRAN ([id number]) [facility] ([facility]) [address] [place] [address] Urea nitrogen [Mass/Vol] 21 mg/dL Normal 6-23 [facility] Comment on above: Performed By: #### 2 4323-8 #### JENNIFER ALBARRAN ([id number]) [facility] ([facility]) [address] [place] [address] [place] [address] ECG 12-LEADon 09-21-2024 ECG 12-LEAD Ventricular Rate 65 Atrial Rate 65 P-R Interval 162 QRS Duration 94 Q-T Interval 412 QTC Calculation(Bazett) 428 P [place] -14 R [place] 266 T [place] 59 QRS Count 11 Q Onset 203 [...] and clinical correlation Confirmed by Roselyn San ([id number]) on 09/25/2024 7:52:09 PM Normal [facility]3] Lipaseon 09-21-2024 Lipase [Catalytic activity/Vol] 51 U/L 9 - 82 U/L [facility] Lipase [Catalytic activity/V ol]on 09-21-2024 Interpretation and review of laboratory results Normal [facility] Venipuncture immedia tely after or during the administration of Metamizole may lead to falsely low results. Testing should be performed immediately prior to Metamizole dosing. [facility] Magnesiumon 09-21-2024 Magnesium [Mass/Vol] 1.57 mg/dL Low 1.60 - 2.40 mg/dL [facility] Magnesium [Mass/Vol] 1.57 mg/dL Low 1.60-2.40 [facility] Comment on above: Performed By: #### 1 9123-9 #### RODRIGUEZ AVIS ([id number]) [facility] ([facility]) [facility] [place] [address] Natriuretic peptide B [Mass/ Vol]on 09-21-2024 Interpretation and review of laboratory results Abnormal [facility] Natriuretic peptide B (Bld) [Mass/Vol] pg/mL High 0 - 99 pg/mL [facility] <100 pg/mL - Heart failure unlikely 100-299 pg/mL - Intermediate probability of acute heart failure exacerbation. Correlate with clinical context and patient history. >=300 pg/mL - Heart Failure likely. Correlate with clinical context and patient history. BNP testing is performed using different testing methodology at [facility] than at other [facility]. Direct result comparisons should only be made within the same method. [facility] Natriuretic peptide B (Bld) [Mass/Vol] pg/mL High 0-99 [facility] Comment on above: Order Comment: <100 pg/mL - Heart failure unlikely 100-299 pg/mL - Intermediate probability of acute heart failure exacerbation. Correlate with clinical context and patient history. >=300 pg/mL - Heart Failure likely. Correlate with clinical context and patient history. BNP testing is performed using different testing methodology at [facility] than at other [facility]. Direct result comparisons should only be made within the same method. 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 Ruiz [facility] Gender Assigned at F Additional Staff: : Height: 162.56 cm Admit Date: Weight: 58.97 kg Admission Status: Outpatient BSA / BMI: 1.63 m2 / 22.31 Department Location: [facility] Echo Lab kg/m2 Blood Pressure: 138 /100 mmHg Study Type: TRANSTHORACIC ECHO (TTE) COMPLETE Diagnosis/ICD: Unspecified systolic (congestive) heart failure (CHF)-I50.20 CPT Codes: Echo Complete w Full Doppler-34425 Study Detail: The following Echo studies were [...] LA Area A2C: 17.2 cm2 LA Major [place] A4C: 6.0 cm LA Major [place] A2C: 5.3 cm LA Volume Index: 30.9 [...] mmHg (< 30mmHg) IVC Diam: 2.20 cm [id number] Grady Sky MD Electronically signed on 09/24/2024 at 7:36:17 AM Final Normal [facility] Triacylglycerol lipaseon Lipase [Catalytic activity/Vol] 51 U/L Normal 9-82 [facility] Comment on above: Order Comment: Venip uncture immediately after or during the administration of Metamizole may lead to falsely low results. Testing should be performed immediately prior to Metamizole dosing. Performed By: #### 3 040-3 #### RODRIGUEZ AVIS ([id number]) [facility] ([facility]) [address] [place] [address] Tropinin I.cardiac panel Hig h sensitivity methodon 09-21-2024 Interpretation and review of laboratory results Abnormal [facility] Less than 99th percentile of normal range [...] performed using a different testing methodology at [facility] than at other [facility]. Direct result comparisons should only be made within the same method. [facility] Interpretation and review of laboratory results Abnormal [facility] Less than 99th percentile of normal range [...] performed using a different testing methodology at [facility] than at other [facility]. Direct result comparisons should only be made within the same method. [facility] Troponin I, High Sensitivity , Initialon 09-21-2024 Tropinin I.cardiac panel High sensitivity method 49 ng/L High 0 - 13 ng/L [facility] Troponin I.cardiac panelon 0 09-21-2024 Tropinin I.cardiac panel High sensitivity method 48 ng/L High 0-13 [facility] Comment on above: Order Comment: Less than [...] performed using a different testing methodology at [facility] than at other [facility]. Direct result comparisons should only be made within the same method. Performed By: #### 8 9577-1 #### RODRIGUEZ AVIS ([id number]) [facility] ([facility]) [address] [place] [address] Tropinin I.cardiac panel High sensitivity method 49 ng/L High 0-13 [facility] Comment on above: Order Comment: Less than [...] performed using a different testing methodology at [facility] than at other [facility]. Direct result comparisons should only be made within the same method. Performed By: #### 8 9577-1 #### RODRIGUEZ AVIS ([id number]) [facility] ([facility]) [address] [place] [address] Troponin, High Sensitivity, 1 Houron 09-21-2024 Tropinin I.cardiac panel High sensitivity method 48 ng/L High 0 - 13 ng/L [facility] Urinalysis complete W Reflex Culture panel (U)on 09-21-2024 Appearance (U) Clear Clear [facility] Bilirubin (U) [Mass/Vol] Negative NEG ATIVE mg/dL [facility] Color (U) Light-Yellow Light-Arthur ow, Yellow, Dark-Yello w [facility] Epithelial cells.squamous Auto (Urine sed) [#/Area] 1-9 (SPARSE) Reference range not establishe d. /HPF [facility] Glucose Auto test strip (U) [Mass/Vol] Normal Normal mg/dL [facility] Interpretation and review of laboratory results Abnormal [facility] Ketones (U) [Mass/Vol] Negative NEGAT RUSH mg/dL [facility] Leukocyte esterase Auto test strip Ql (U) Negative NEGATIVE [facility] Mucus Auto (Urine sed) [#/Area] FEW Reference range not establishe d. /LPF [facility] Nitrite Auto test strip Ql (U) Negative NEGATIVE [facility] pH (U) 6.5 [pH] 5.0, 5.5, 6.0, 6.5, 7.0, 7.5, 8.0 [facility] Protein (U) [Mass/Vol] 30 (1+) Abnormal NEGAT RUSH, 10 (TRACE), 20 (TRACE) mg/dL [facility] RBC (U) [#/Vol] Negative NEGATIVE mg/dL [facility] RBC Auto (Urine sed) [#/Area] 6-10 Abnormal NONE, 1-2, 3-5 /HPF [facility] Specific gravity (U) [Rel density] 1.023 1.005 - 1.035 [facility] Urobilinogen (U) [Mass/Vol] Normal Normal mg/dL [facility] WBC Auto (Urine sed) [#/Area] 1-5 1-5, NONE /HPF [facility] Appearance (U) Clear Normal Clear [facility] Comment on above: Performed By: #### 5 8077-9 #### JENNIFER ALBARRAN ([id number]) [facility] ([facility]) [address] [place] [address] Bilirubin (U) [Mass/Vol] Negative Normal NEGATIVE [facility] Comment on above: Performed By: #### 5 8077-9 #### JENNIFER ALBARRAN ([id number]) [facility] ([facility]) [address] [place] [address] Color (U) Light-Yellow Normal Light-Arthur ow, Yellow, Dark-Yello w [facility] Comment on above: Performed By: #### 5 8077-9 #### JENNIFER ALBARRAN ([id number]) [facility] ([facility]) [address] [place] [address] Epithelial cells.squamous Auto (Urine sed) [#/Area] 1-9 (SPARSE) Normal Reference range not establishe d. [facility] Comment on above: Performed By: #### 5 8077-9 #### JENNIFER ALBARRAN ([id number]) [facility] ([facility]) [address] [place] [address] Glucose Auto test strip (U) [Mass/Vol] Normal Normal Normal [facility] Comment on above: Performed By: #### 5 8077-9 #### JENNIFER ALBARRAN ([id number]) [facility] ([facility]) [address] [place] [address] Ketones (U) [Mass/Vol] Negative Normal NEGATIVE [facility] Comment on above: Performed By: #### 5 8077-9 #### JENNIFER ALBARRAN ([id number]) [facility] ([facility]) [address] [place] [address] Leukocyte esterase Auto test strip Ql (U) Negative Normal NEGATIVE [facility] Comment on above: Performed By: #### 5 8077-9 #### JENNIFER ALBARRAN ([id number]) [facility] ([facility]) [address] [place] [address] Mucus Auto (Urine sed) [#/Area] FEW Normal Reference range not establishe d. [facility] Comment on above: Performed By: #### 5 8077-9 #### JENNIFER ALBARRAN ([id number]) [facility] ([facility]) [address] [place] [address] Nitrite Auto test strip Ql (U) Negative Normal NEGATIVE [facility] Comment on above: Performed By: #### 5 8077-9 #### JENNIFER ALBARRAN ([id number]) [facility] ([facility]) [address] [place] [address] pH (U) 6.5 [pH] Normal 5.0, 5.5, 6.0, 6.5, 7.0, 7.5, 8.0 [facility] Comment on above: Performed By: #### 5 8077-9 #### JENNIFER ALBARRAN ([id number]) [facility] ([facility]) [address] [place] [address] Protein (U) [Mass/Vol] 30 (1+) Abnormal NEGAT RUSH, 10 (TRACE), 20 (TRACE) [facility] Comment on above: Performed By: #### 5 8077-9 #### JENNIFER ALBARRAN ([id number]) [facility] ([facility]) [address] [place] [address] RBC (U) [#/Vol] Negative Normal NEGATIVE [facility] Comment on above: Performed By: #### 5 8077-9 #### JENNIFER ALBARRAN ([id number]) [facility] ([facility]) [address] [place] [address] RBC Auto (Urine sed) [#/Area] 6-10 Abnormal NONE, 1-2, 3-5 [facility] Comment on above: Performed By: #### 5 8077-9 #### JENNIFER ALBARRAN ([id number]) [facility] ([facility]) [address] [place] [address] Specific gravity (U) [Rel density] 1.023 Normal 1.005-1.03 5 [facility] Comment on above: Performed By: #### 5 8077-9 #### JENNIFER ALBARRAN ([id number]) [facility] ([facility]) [address] [place] [address] Urobilinogen (U) [Mass/Vol] Normal Normal Normal [facility] Comment on above: Performed By: #### 5 8077-9 #### JENNIFER ALBARRAN ([id number]) [facility] ([facility]) [address] [place] [address] WBC Auto (Urine sed) [#/Area] 1-5 Normal 1-5, NONE [facility] Comment on above: Performed By: #### 5 8077-9 #### JENNIFER ALBARRAN ([id number]) [facility] ([facility]) [address] [place] [address] CT ABDOMEN PELVIS W IV CONTR Munir 09-20-2024 CT ABDOMEN PELVIS W IV CONTRAST Interpreted By: Deondre Davila, STUDY: CT ABDOMEN PELVIS W IV CONTRAST; 09/21/2024 1:33 am INDICATION: Signs/Symptoms:abd pain. COMPARISON: Same day CTA of the chest. 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 COMPARISON: None ACCESSION NUMBER(S): [id number] ORDERING CLINICIAN: ROCKY EVERETT TECHNIQUE: Helical data [...] along the fissures in the lower lobes, ghhpc-wihfwny-zjqp-left. 3. Mild cardiomegaly with some reflux of contrast into the hepatic veins and IVC, findings that may be seen in the setting of early right heart strain. Correlate with echocardiogram. MACRO: None Signed by: Deondre Davila 09/21/2024 1:38 AM Dictation workstation: [id number] [facility] Gastroenterology Visit Repor ton 09-18-2024 Gastroenterology Visit Report Normal [facility] Liver Profileon 09-15-2024 ALB Normal 3.5-5.0 [facility] Comment on above: Result Comment: Canc elled via OM: Order cancelled - Patient discharged Performed By: #### L 500.3400 ####[facility] [address] [facility] [address] ALK PHOS Normal 35-104 [facility] Comment on above: Result Comment: Canc elled via OM: Order cancelled - Patient discharged Performed By: #### L 500.3400 ####[facility] [address] [facility] [address] ALT Normal <=34 [facility] Comment on above: Result Comment: Canc elled via OM: Order cancelled - Patient discharged Performed By: #### L 500.3400 ####[facility] [address] [facility] [address] AST Normal <=31 [facility] Comment on above: Result Comment: Canc elled via OM: Order cancelled - Patient discharged Performed By: #### L 500.3400 ####[facility] [address] [place], [address] D BILI Normal 0.00-0.30 [facility] Comment on above: Result Comment: Canc elled via OM: Order cancelled - Patient discharged Performed By: #### L 500.3400 ####[facility] [address] [place], [address] T BILI Normal 0.00-1.30 [facility] Comment on above: Result Comment: Canc elled via OM: Order cancelled - Patient discharged Performed By: #### L 500.3400 ####[facility] [address] [place], [address] T PROT Normal 5.9-8.4 [facility] Comment on above: Result Comment: Canc elled via OM: Order cancelled - Patient discharged Performed By: #### L 500.3400 ####[facility] [address] [place], [address] Absolute lymphocyte countOrd ered By: Emerson Sierra on 09-14-2024 Lymphocytes Auto (Unsp spec) [#/Vol] 1.17 10*3/uL 0.83-4.51 [facility] Anion gap in Serum or Plasma Ordered By: Emerson Sierra on 09-14-2024 Anion gap [Moles/Vol] 12 mmol/L 5-15 [facility] Automated lymphocyte count a s percentage of total leukocytesOrdered By: Emerson Sierra on 09-14-2024 Lymphocytes/100 WBC Auto (Unsp spec) 6.7 % Low 19-41 [facility] BUN/creatinine ratioOrdered By: Emerson Sierra on 09-14-2024 Urea nitrogen/Creatinine [Mass ratio] 19.8 mg/mg 10-20 [facility] Basic Metabolic Profile (BMP )on 09-14-2024 BUN/CRE 19.8 RATIO Normal -20 [facility] Comment on above: Performed By: #### L 500.3400, L500.2500, L100.0100 ####[facility] [address] [place], [address] Calcium [Mass/Vol] 9.6 mg/dL Normal 7.6-11.0 [facility] Comment on above: Performed By: #### L 500.3400, L500.2500, L100.0100 ####[facility] [address] [place], [address] Chloride [Moles/Vol] 101 mmol/L Normal 98-108 [facility] Comment on above: Performed By: #### L 500.3400, L500.2500, L100.0100 ####[facility] [address] [place], [address] CO2 [Moles/Vol] 18.9 mmol/L Low 21.0-32.0 [facility] Comment on above: Performed By: #### L 500.3400, L500.2500, L100.0100 ####[facility] [address] [place], [address] Creatinine [Mass/Vol] 0.98 mg/dL Normal 0.70-1.20 [facility] Comment on above: Performed By: #### L 500.3400, L500.2500, L100.0100 ####[facility] [address] [place], [address] ECRCL 63.26 ml/min Normal 50-250 [facility] Comment on above: Performed By: #### L 500.3400, L500.2500, L100.0100 ####[facility] [address] [place], [address] GAP 12 Normal 5-15 [facility] Comment on above: Performed By: #### L 500.3400, L500.2500, L100.0100 ####[facility] [address] [place], [address] GFR/1.73 sq M.predicted among non-blacks MDRD (S/P/Bld) [Vol rate/Area] 73 mL/min/{1.73_m2} Normal >60 [facility] Comment on above: Result Comment: mL/m in/1.73m2 CKD-EPI Creatinine Equation (2020) Performed By: #### L 500.3400, L500.2500, L100.0100 ####[facility] [address] [place], [address] Glucose [Mass/Vol] 119 mg/dL High 70-99 [facility] Comment on above: Performed By: #### L 500.3400, L500.2500, L100.0100 ####[facility] [address] [place], [address] Potassium [Moles/Vol] 4.6 mmol/L Normal 3.3-5.1 [facility] Comment on above: Performed By: #### L 500.3400, L500.2500, L100.0100 ####[facility] [address] [place], [address] Sodium [Moles/Vol] 131 mmol/L Low 133-145 [facility] Comment on above: Performed By: #### L 500.3400, L500.2500, L100.0100 ####[facility] [address] [place], [address] Urea nitrogen [Mass/Vol] 19 mg/dL Normal 4-19 [facility] Comment on above: Performed By: #### L 500.3400, L500.2500, L100.0100 ####[facility] [address] [place], [address] Basophil percentageOrdered B y: Emerson Sierra on 09-14-2024 Basophils/100 WBC (Bld) 0.2 % 0-1 [facility] Bilirubin directOrdered By: Emerson Sierra on 09-14-2024 Bilirubin.direct [Mass/Vol] 0.39 mg/dL High 0.00-0.30 [facility] Bilirubin, totalOrdered By: Emerson Sierra on 09-14-2024 Bilirubin [Mass/Vol] 0.90 mg/dL 0.00-1.30 [facility] CBC W/Diff, Automatedon 07-0 4-2025 Absolute Lymph 1.17 X10 3/uL Normal 0.83-4.51 [facility] Comment on above: Performed By: #### L 500.3400, L500.2500, L100.0100 ####[facility] [address] [place], [address] Absolute Neut 14.5 X10 3/uL High 2.0-7.7 [facility] Comment on above: Performed By: #### L 500.3400, L500.2500, L100.0100 ####[facility] [address] [place], [address] Basophils/100 WBC (Bld) 0.2 % Normal 0-1 [facility] Comment on above: Performed By: #### L 500.3400, L500.2500, L100.0100 ####[facility] [address] [place], [address] Eosinophils/100 WBC (Bld) 0.1 % Normal 0-5 [facility] Comment on above: Performed By: #### L 500.3400, L500.2500, L100.0100 ####[facility] [address] [place], [address] Erythrocyte distribution width (RBC) [Ratio] 14.5 % Normal 11.6-14.6 [facility] Comment on above: Performed By: #### L 500.3400, L500.2500, L100.0100 ####[facility] [address] [place], [address] Hematocrit (Bld) [Volume fraction] 38.4 % Normal 37-47 [facility] Comment on above: Performed By: #### L 500.3400, L500.2500, L100.0100 ####[facility] [address] [place], [address] Hemoglobin (Bld) [Mass/Vol] 12.2 g/dL Normal 12.0-15.0 [facility] Comment on above: Performed By: #### L 500.3400, L500.2500, L100.0100 ####[facility] [address] [place], [address] IG% 0.700 Normal 0.0-0.9 [facility] Comment on above: Result Comment: IG% - Immature Granulocytes (promyelocytes, myelocytes andmetamyelocytes) > 1% indicates that a LEFT SHIFT is Present. Performed By: #### L 500.3400, L500.2500, L100.0100 ####[facility] [address] [place], [address] Lymphocytes/100 WBC (Bld) 6.7 % Low 19-41 [facility] Comment on above: Performed By: #### L 500.3400, L500.2500, L100.0100 ####[facility] [address] [place], [address] MCH (RBC) [Entitic mass] 30.7 pg Normal 27.0-32.0 [facility] Comment on above: Performed By: #### L 500.3400, L500.2500, L100.0100 ####[facility] [address] [place], [address] MCHC (RBC) [Mass/Vol] 31.8 g/dL Low 32-36 [facility] Comment on above: Performed By: #### L 500.3400, L500.2500, L100.0100 ####[facility] [address] [place], [address] MCV (RBC) [Entitic vol] 96.5 fL Normal 81-99 [facility] Comment on above: Performed By: #### L 500.3400, L500.2500, L100.0100 ####[facility] [address] [place], [address] Monocytes/100 WBC (Bld) 8.8 % Normal 0-10 [facility] Comment on above: Performed By: #### L 500.3400, L500.2500, L100.0100 ####[facility] [address] [place], [address] Neutrophils/100 WBC (Bld) 83.5 % High 47-70 [facility] Comment on above: Performed By: #### L 500.3400, L500.2500, L100.0100 ####[facility] [address] [place], [address] Nucleated RBC (Bld) [#/Vol] 0 10*3/uL Normal 0-5 [facility] Comment on above: Performed By: #### L 500.3400, L500.2500, L100.0100 ####[facility] [address] [place], [address] Platelet mean volume (Bld) [Entitic vol] 10.2 fL Normal 6.2-12.0 [facility] Comment on above: Performed By: #### L 500.3400, L500.2500, L100.0100 ####[facility] [address] [place], [address] Platelets (Bld) [#/Vol] 339 10*3/uL Normal 150-450 [facility] Comment on above: Performed By: #### L 500.3400, L500.2500, L100.0100 ####[facility] [address] [place], [address] RBC (Bld) [#/Vol] 3.98 10*6/uL Low 4.2-5.4 [facility] Comment on above: Performed By: #### L 500.3400, L500.2500, L100.0100 ####[facility] [address] [place], [address] RDW SD 51.4 fl High 35.1-43.9 [facility] Comment on above: Performed By: #### L 500.3400, L500.2500, L100.0100 ####[facility] [address] [place], [address] WBC (Bld) [#/Vol] 17.3 10*3/uL High 4.4-11.0 [facility] Comment on above: Performed By: #### L 500.3400, L500.2500, L100.0100 ####[facility] [address] [facility] [place], [address] Carbon dioxide, total [Moles /volume] in Central venous bloodOrdered By: Emerson Sierra on 09-14-2024 CO2 [Moles/Vol] 18.9 mmol/L Low 21.0-32.0 [facility] Chloride assayOrdered By: Yaniv Sierra on 09-14-2024 Chloride [Moles/Vol] 101 mmol/L 98-108 [facility] Discharge Instructionon 07-0 Discharge Instruction Normal [facility] Eosinophil percentageOrdered By: Emerson Sierra on 09-14-2024 Eosinophils/100 WBC (Bld) 0.1 % 0-5 [facility] Erythrocyte distribution wid th ratioOrdered By: Emerson Sierra on 09-14-2024 Erythrocyte distribution width (RBC) [Ratio] 14.5 % 11.6-14.6 [facility] Erythrocyte distribution wid th standard deviationOrdered By: Emerson Sierra on 09-14-2024 Erythrocyte distribution width (RBC) [Ratio] 51.4 fl High 35.1-43.9 [facility] Glomerular filtration rate ( GFR) estimation/1.73 sq m using serum, plasma, or whole bOrdered By: Emerson Sierra on 09-14-2024 GFR/1.73 sq M.predicted among non-blacks MDRD (S/P/Bld) [Vol rate/Area] 73 mL/min/{1.73_m2} >60 [facility] Hematocrit Auto (Bld) [Volum e fraction]Ordered By: Emerson Sierra on 09-14-2024 Hematocrit (Bld) [Volume fraction] 38.4 % 37-47 [facility] Hemoglobin measurementOrdere d By: Emerson Sierra on 09-14-2024 Hemoglobin (Bld) [Mass/Vol] 12.2 g/dL 12.0-15.0 [facility] Immature granulocytes/100 WB C Auto (Bld)Ordered By: Emerson Sierra on 09-14-2024 Immature granulocytes/100 WBC (Bld) 0.700 % 0.0-0.9 [facility] L501.5101on 09-14-2024 GGTP 45 IU/L Normal 0-60 [facility] Comment on above: Result Comment: Perf ormed at: - [facility] [address] [id number] Director: Victor M Hargrove PhD, Phone: [phone] Performed By: #### L 501.5106 ####[facility] [address] [place], [address] Liver Profileon 09-14-2024 Albumin [Mass/Vol] 4.6 g/dL Normal 3.5-5.0 [facility] Comment on above: Performed By: #### L 500.3400, L500.2500, L100.0100 ####[facility] [address] [place], [address] ALK PHOS 153 U/L High 35-104 [facility] Comment on above: Performed By: #### L 500.3400, L500.2500, L100.0100 ####[facility] [address] [place], [address] ALT [Catalytic activity/Vol] 322 U/L High <=34 [facility] Comment on above: Performed By: #### L 500.3400, L500.2500, L100.0100 ####[facility] [address] [place], [address] AST [Catalytic activity/Vol] 443 U/L High <=31 [facility] Comment on above: Performed By: #### L 500.3400, L500.2500, L100.0100 ####[facility] [address] [place], [address] Bilirubin [Mass/Vol] 0.90 mg/dL Normal 0.00-1.30 [facility] Comment on above: Performed By: #### L 500.3400, L500.2500, L100.0100 ####[facility] [address] [place], [address] Bilirubin.direct [Mass/Vol] 0.39 mg/dL High 0.00-0.30 [facility] Comment on above: Performed By: #### L 500.3400, L500.2500, L100.0100 ####[facility] [address] [place], [address] Globulin (S) [Mass/Vol] 2.7 g/dL Normal 2.2-4.2 [facility] Comment on above: Performed By: #### L 500.3400, L500.2500, L100.0100 ####[facility] [address] [place], [address] T PROT 7.3 g/dL Normal 5.9-8.4 [facility] Comment on above: Performed By: #### L 500.3400, L500.2500, L100.0100 ####[facility] [address] [place], [address] MCV (mean corpuscular volume ) determinationOrdered By: Emerson Sierra on 09-14-2024 MCV (RBC) [Entitic vol] 96.5 fL 81-99 [facility] Mean corpuscular hemoglobin (MCH) determinationOrdered By: Emerson Sierra on 09-14-2024 MCH (RBC) [Entitic mass] 30.7 pg 27.0-32.0 [facility] Monocyte percentageOrdered B y: Emerson Sierra on 09-14-2024 Monocytes/100 WBC (Bld) 8.8 % 0-10 [facility] Neutrophil percentageOrdered By: Emerson Sierra on 09-14-2024 Neutrophils/100 WBC (Bld) 83.5 % High 47-70 [facility] No Panel InformationOrdered By: Emerson Sierra on 09-14-2024 443 U/L High <32 [facility] Platelet countOrdered By: Yaniv Sierra on 09-14-2024 Platelets (Bld) [#/Vol] 339 10*3/uL 150-450 [facility] Potassium measurement (mass/ volume)Ordered By: Emerson Sierra on 09-14-2024 Potassium (Unsp spec) [Mass/Vol] 4.6 mmol/L 3.3-5.1 [facility] RBC Auto (Bld) [#/Vol]Ordere d By: Emerson Sierra on 09-14-2024 RBC (Bld) [#/Vol] 3.98 10*6/uL Low 4.2-5.4 [facility] Serum creatinine measurement (mass/volume)Ordered By: Emerson Sierra on 09-14-2024 Creatinine [Mass/Vol] 0.98 mg/dL 0.70-1.20 [facility] Serum globulin measurementOr dered By: Emerson Sierra on 09-14-2024 Globulin (S) [Mass/Vol] 2.7 g/dL 2.2-4.2 [facility] Serum glucose measurement (m ass/volume)Ordered By: Emerson Sierra on 09-14-2024 Glucose [Mass/Vol] 119 mg/dL High 70-99 [facility] Serum or plasma alanine hair otransferase (ALT) measurementOrdered By: Emerson Sierra on 09-14-2024 ALT [Catalytic activity/Vol] 322 U/L High <35 [facility] Serum or plasma albumin leslie urement (mass/volume)Ordered By: Emerson Sierra on 09-14-2024 Albumin [Mass/Vol] 4.6 g/dL 3.5-5.0 [facility] Serum or plasma alkaline delfin sphatase measurementOrdered By: Emerson Sierra on 09-14-2024 ALP [Catalytic activity/Vol] 153 U/L High 35-104 [facility] Serum or plasma calcium leslie urement (mass/volume)Ordered By: Emerson Sierra on 09-14-2024 Calcium [Mass/Vol] 9.6 mg/dL 7.6-11.0 [facility] Serum or plasma urea nitroge n measurement (mass/volume)Ordered By: Emerson Sierra on 09-14-2024 Urea nitrogen [Mass/Vol] 19 mg/dL 4-19 [facility] Sodium levelOrdered By: Wilton Sierra on 09-14-2024 Sodium [Moles/Vol] 131 mmol/L Low 133-145 [facility] Total proteinOrdered By: Bernie Sierra on 09-14-2024 Protein [Mass/Vol] 7.3 g/dL 5.9-8.4 [facility] White blood cell (WBC) count Ordered By: Emerson Sierra on 09-14-2024 WBC (Bld) [#/Vol] 17.3 10*3/uL High 4.4-11.0 [facility] Basic Metabolic Profile (BMP )on 09-13-2024 BUN/CRE 21.6 RATIO High 10-20 [facility] Comment on above: Performed By: #### L 501.2300, L500.2500, L500.3400 ####[facility] [address] [place], [address] Calcium [Mass/Vol] 9.7 mg/dL Normal 7.6-11.0 [facility] Comment on above: Performed By: #### L 501.2300, L500.2500, L500.3400 ####[facility] [address] [place], [address] Chloride [Moles/Vol] 101 mmol/L Normal 98-108 [facility] Comment on above: Performed By: #### L 501.2300, L500.2500, L500.3400 ####[facility] [address] [place], [address] CO2 [Moles/Vol] 17.5 mmol/L Low 21.0-32.0 [facility] Comment on above: Performed By: #### L 501.2300, L500.2500, L500.3400 ####[facility] [address] [place], [address] Creatinine [Mass/Vol] 0.87 mg/dL Normal 0.70-1.20 [facility] Comment on above: Performed By: #### L 501.2300, L500.2500, L500.3400 ####[facility] [address] [place], [address] ECRCL 71.26 ml/min Normal 50-250 [facility] Comment on above: Performed By: #### L 501.2300, L500.2500, L500.3400 ####[facility] [address] [place], [address] GAP 15 Normal 5-15 [facility] Comment on above: Performed By: #### L 501.2300, L500.2500, L500.3400 ####[facility] [address] [place], [address] GFR/1.73 sq M.predicted among non-blacks MDRD (S/P/Bld) [Vol rate/Area] 85 mL/min/{1.73_m2} Normal >60 [facility] Comment on above: Result Comment: mL/m in/1.73m2 CKD-EPI Creatinine Equation (2020) Performed By: #### L 501.2300, L500.2500, L500.3400 ####[facility] [address] [place], [address] Glucose [Mass/Vol] 79 mg/dL Normal 70-99 [facility] Comment on above: Performed By: #### L 501.2300, L500.2500, L500.3400 ####[facility] [address] [place], [address] Potassium [Moles/Vol] 5.0 mmol/L Normal 3.3-5.1 [facility] Comment on above: Performed By: #### L 501.2300, L500.2500, L500.3400 ####[facility] [address] [place], [address] Sodium [Moles/Vol] 133 mmol/L Normal 133-145 [facility] Comment on above: Performed By: #### L 501.2300, L500.2500, L500.3400 ####[facility] [address] [place], [address] Urea nitrogen [Mass/Vol] 19 mg/dL Normal 4-19 [facility] Comment on above: Performed By: #### L 501.2300, L500.2500, L500.3400 ####[facility] [address] [place], [address] CBC W/Diff, Automatedon 07-0 3-2025 Absolute Lymph 1.21 X10 3/uL Normal 0.83-4.51 [facility] Comment on above: Performed By: #### L 100.0100 ####[facility] [address] [place], [address] Absolute Neut 16.5 X10 3/uL High 2.0-7.7 [facility] Comment on above: Performed By: #### L 100.0100 ####[facility] [address] [place], [address] Basophils/100 WBC (Bld) 0.2 % Normal 0-1 [facility] Comment on above: Performed By: #### L 100.0100 ####[facility] [address] [place], [address] Eosinophils/100 WBC (Bld) 0.1 % Normal 0-5 [facility] Comment on above: Performed By: #### L 100.0100 ####[facility] [address] [place], [address] Erythrocyte distribution width (RBC) [Ratio] 14.5 % Normal 11.6-14.6 [facility] Comment on above: Performed By: #### L 100.0100 ####[facility] [address] [place], [address] Hematocrit (Bld) [Volume fraction] 41.1 % Normal 37-47 [facility] Comment on above: Performed By: #### L 100.0100 ####[facility] [address] [place], [address] Hemoglobin (Bld) [Mass/Vol] 12.7 g/dL Normal 12.0-15.0 [facility] Comment on above: Performed By: #### L 100.0100 ####[facility] [address] [place], [address] IG% 0.900 Normal 0.0-0.9 [facility] Comment on above: Result Comment: IG% - Immature Granulocytes (promyelocytes, myelocytes andmetamyelocytes) > 1% indicates that a LEFT SHIFT is Present. Performed By: #### L 100.0100 ####[facility] [address] [place], [address] Lymphocytes/100 WBC (Bld) 6.3 % Low 19-41 [facility] Comment on above: Performed By: #### L 100.0100 ####[facility] [address] [place], [address] MCH (RBC) [Entitic mass] 30.7 pg Normal 27.0-32.0 [facility] Comment on above: Performed By: #### L 100.0100 ####[facility] [address] [place], [address] MCHC (RBC) [Mass/Vol] 30.9 g/dL Low 32-36 [facility] Comment on above: Performed By: #### L 100.0100 ####[facility] [address] [place], [address] MCV (RBC) [Entitic vol] 99.3 fL High 81-99 [facility] Comment on above: Performed By: #### L 100.0100 ####[facility] [address] [place], [address] Monocytes/100 WBC (Bld) 6.7 % Normal 0-10 [facility] Comment on above: Performed By: #### L 100.0100 ####[facility] [address] [place], [address] Neutrophils/100 WBC (Bld) 85.8 % High 47-70 [facility] Comment on above: Performed By: #### L 100.0100 ####[facility] [address] [place], [address] Nucleated RBC (Bld) [#/Vol] 0 10*3/uL Normal 0-5 [facility] Comment on above: Performed By: #### L 100.0100 ####[facility] [address] [place], [address] Platelet mean volume (Bld) [Entitic vol] 10.5 fL Normal 6.2-12.0 [facility] Comment on above: Performed By: #### L 100.0100 ####[facility] [address] [place], [address] Platelets (Bld) [#/Vol] 359 10*3/uL Normal 150-450 [facility] Comment on above: Performed By: #### L 100.0100 ####[facility] [address] [place], [address] RBC (Bld) [#/Vol] 4.14 10*6/uL Low 4.2-5.4 [facility] Comment on above: Performed By: #### L 100.0100 ####[facility] [address] [place], [address] RDW SD 52.7 fl High 35.1-43.9 [facility] Comment on above: Performed By: #### L 100.0100 ####[facility] [address] [place], [address] WBC (Bld) [#/Vol] 19.2 10*3/uL High 4.4-11.0 [facility] Comment on above: Performed By: #### L 100.0100 ####[facility] [address] [place], [address] Discharge Instructionon 07-0 Discharge Instruction Normal [facility] Gamma glutamyl transferase ( GGT) measurementOrdered By: Emerson Sierra on 09-13-2024 Amylase [Catalytic activity/Vol] 45 U/L 0-60 [facility] L501.5101on 09-13-2024 GGTP 39 IU/L Normal 0-60 [facility] Comment on above: Result Comment: Perf ormed at: CB - [facility] [address] [id number] Director: Victor M Hargrove PhD, Phone: [phone] Performed By: #### L 501.5101 ####[facility] [address] [place], [address] Liver Profileon 09-13-2024 Albumin [Mass/Vol] 4.5 g/dL Normal 3.5-5.0 [facility] Comment on above: Performed By: #### L 501.2300, L500.2500, L500.3400 ####[facility] [address] [place], [address] ALK PHOS 146 U/L High 35-104 [facility] Comment on above: Performed By: #### L 501.2300, L500.2500, L500.3400 ####[facility] [address] [place], [address] ALT [Catalytic activity/Vol] 28 U/L Normal <=34 [facility] Comment on above: Performed By: #### L 501.2300, L500.2500, L500.3400 ####[facility] [address] [place], [address] AST [Catalytic activity/Vol] 34 U/L High <=31 [facility] Comment on above: Performed By: #### L 501.2300, L500.2500, L500.3400 ####[facility] [facility] [address] [place], [address] Bilirubin [Mass/Vol] 1.13 mg/dL Normal 0.00-1.30 [facility] Comment on above: Performed By: #### L 501.2300, L500.2500, L500.3400 ####[facility] [address] [place], [address] Bilirubin.direct [Mass/Vol] 0.41 mg/dL High 0.00-0.30 [facility] Comment on above: Performed By: #### L 501.2300, L500.2500, L500.3400 ####[facility] [address] [place], [address] Globulin (S) [Mass/Vol] 2.8 g/dL Normal 2.2-4.2 [facility] Comment on above: Performed By: #### L 501.2300, L500.2500, L500.3400 ####[facility] [address] [place], [address] T PROT 7.3 g/dL Normal 5.9-8.4 [facility] Comment on above: Performed By: #### L 501.2300, L500.2500, L500.3400 ####[facility] [address] [place], [address] Phosphoruson --2024 Phosphate [Mass/Vol] 5.2 mg/dL High 2.7-4.5 [facility] Comment on above: Performed By: #### L 501.2300, L500.2500, L500.3400 ####[facility] [address] [place], [address] CBC W/Diff, Automatedon 07-0 Absolute Lymph 0.53 X10 3/uL Low 0.83-4.51 [facility] Comment on above: Performed By: #### L 500.4050, L501.2300, L100.0100, L501.2450, L501.9520 ####[facility] [address] [place], [address] Absolute Neut 17.7 X10 3/uL High 2.0-7.7 [facility] Comment on above: Performed By: #### L 500.4050, L501.2300, L100.0100, L501.2450, L501.9520 ####[facility] [address] [place], [address] Basophils/100 WBC (Bld) 0.2 % Normal 0-1 [facility] Comment on above: Performed By: #### L 500.4050, L501.2300, L100.0100, L501.2450, L501.9520 ####[facility] [address] [place], [address] Eosinophils/100 WBC (Bld) 0.0 % Normal 0-5 [facility] Comment on above: Performed By: #### L 500.4050, L501.2300, L100.0100, L501.2450, L501.9520 ####[facility] [address] [place], [address] Erythrocyte distribution width (RBC) [Ratio] 14.6 % Normal 11.6-14.6 [facility] Comment on above: Performed By: #### L 500.4050, L501.2300, L100.0100, L501.2450, L501.9520 ####[facility] [address] [place], [address] Hematocrit (Bld) [Volume fraction] 42.4 % Normal 37-47 [facility] Comment on above: Performed By: #### L 500.4050, L501.2300, L100.0100, L501.2450, L501.9520 ####[facility] [address] [place], [address] Hemoglobin (Bld) [Mass/Vol] 13.5 g/dL Normal 12.0-15.0 [facility] Comment on above: Performed By: #### L 500.4050, L501.2300, L100.0100, L501.2450, L501.9520 ####[facility] [address] [place], [address] IG% 0.500 Normal 0.0-0.9 [facility] Comment on above: Result Comment: IG% - Immature Granulocytes (promyelocytes, myelocytes andmetamyelocytes) > 1% indicates that a LEFT SHIFT is Present. Performed By: #### L 500.4050, L501.2300, L100.0100, L501.2450, L501.9520 ####[facility] [address] [place], [address] Lymphocytes/100 WBC (Bld) 2.8 % Low 19-41 [facility] Comment on above: Performed By: #### L 500.4050, L501.2300, L100.0100, L501.2450, L501.9520 ####[facility] [address] [place], [address] MCH (RBC) [Entitic mass] 30.9 pg Normal 27.0-32.0 [facility] Comment on above: Performed By: #### L 500.4050, L501.2300, L100.0100, L501.2450, L501.9520 ####[facility] [address] [place], [address] MCHC (RBC) [Mass/Vol] 31.8 g/dL Low 32-36 [facility] Comment on above: Performed By: #### L 500.4050, L501.2300, L100.0100, L501.2450, L501.9520 ####[facility] [address] [place], [address] MCV (RBC) [Entitic vol] 97.0 fL Normal 81-99 [facility] Comment on above: Performed By: #### L 500.4050, L501.2300, L100.0100, L501.2450, L501.9520 ####[facility] [address] [place], [address] Monocytes/100 WBC (Bld) 1.7 % Normal 0-10 [facility] Comment on above: Performed By: #### L 500.4050, L501.2300, L100.0100, L501.2450, L501.9520 ####[facility] [address] [place], [address] Neutrophils/100 WBC (Bld) 94.8 % High 47-70 [facility] Comment on above: Performed By: #### L 500.4050, L501.2300, L100.0100, L501.2450, L501.9520 ####[facility] [address] [place], [address] Nucleated RBC (Bld) [#/Vol] 0 10*3/uL Normal 0-5 [facility] Comment on above: Performed By: #### L 500.4050, L501.2300, L100.0100, L501.2450, L501.9520 ####[facility] [address] [place], [address] Platelet mean volume (Bld) [Entitic vol] 10.4 fL Normal 6.2-12.0 [facility] Comment on above: Performed By: #### L 500.4050, L501.2300, L100.0100, L501.2450, L501.9520 ####[facility] [address] [place], [address] Platelets (Bld) [#/Vol] 309 10*3/uL Normal 150-450 [facility] Comment on above: Performed By: #### L 500.4050, L501.2300, L100.0100, L501.2450, L501.9520 ####[facility] [address] [place], [address] RBC (Bld) [#/Vol] 4.37 10*6/uL Normal 4.2-5.4 [facility] Comment on above: Performed By: #### L 500.4050, L501.2300, L100.0100, L501.2450, L501.9520 ####[facility] [address] [place], [address] RDW SD 51.8 fl High 35.1-43.9 [facility] Comment on above: Performed By: #### L 500.4050, L501.2300, L100.0100, L501.2450, L501.9520 ####[facility] [address] [place], [address] WBC (Bld) [#/Vol] 18.7 10*3/uL High 4.4-11.0 [facility] Comment on above: Performed By: #### L 500.4050, L501.2300, L100.0100, L501.2450, L501.9520 ####[facility] [address] [place], [address] CT Abd/Pelvis W/WO Contrasto n 09-12-2024 CT Abd/Pelvis W/WO Contrast Normal [facility] Comprehensive Metabolic Prof ilon 09-12-2024 Albumin [Mass/Vol] 4.2 g/dL Normal 3.5-5.0 [facility] Comment on above: Performed By: #### L 500.4050, L501.2300, L100.0100, L501.2450, L501.9520 ####[facility] [address] [place], [address] Albumin/Globulin [Mass ratio] 1.5 {ratio} Normal 0.9-2.4 [facility] Comment on above: Performed By: #### L 500.4050, L501.2300, L100.0100, L501.2450, L501.9520 ####[facility] [address] [place], [address] ALK PHOS 146 U/L High 35-104 [facility] Comment on above: Performed By: #### L 500.4050, L501.2300, L100.0100, L501.2450, L501.9520 ####[facility] [address] [place], [address] ALT [Catalytic activity/Vol] 19 U/L Normal <=34 [facility] Comment on above: Performed By: #### L 500.4050, L501.2300, L100.0100, L501.2450, L501.9520 ####[facility] [address] [place], [address] AST [Catalytic activity/Vol] 28 U/L Normal <=31 [facility] Comment on above: Result Comment: Hemo lysis present, Results??could be affected.?? Performed By: #### L 500.4050, L501.2300, L100.0100, L501.2450, L501.9520 ####[facility] [address] [place], [address] Bilirubin [Mass/Vol] 1.02 mg/dL Normal 0.00-1.30 [facility] Comment on above: Performed By: #### L 500.4050, L501.2300, L100.0100, L501.2450, L501.9520 ####[facility] [address] [place], [address] BUN/CRE 21.9 RATIO High 10-20 [facility] Comment on above: Performed By: #### L 500.4050, L501.2300, L100.0100, L501.2450, L501.9520 ####[facility] [address] [place], [address] Calcium [Mass/Vol] 9.0 mg/dL Normal 7.6-11.0 [facility] Comment on above: Performed By: #### L 500.4050, L501.2300, L100.0100, L501.2450, L501.9520 ####[facility] [address] [place], [address] Chloride [Moles/Vol] 104 mmol/L Normal 98-108 [facility] Comment on above: Performed By: #### L 500.4050, L501.2300, L100.0100, L501.2450, L501.9520 ####[facility] [address] [place], [address] CO2 [Moles/Vol] 15.3 mmol/L Low 21.0-32.0 [facility] Comment on above: Performed By: #### L 500.4050, L501.2300, L100.0100, L501.2450, L501.9520 ####[facility] [address] [place], [address] Creatinine [Mass/Vol] 0.74 mg/dL Normal 0.70-1.20 [facility] Comment on above: Performed By: #### L 500.4050, L501.2300, L100.0100, L501.2450, L501.9520 ####[facility] [address] [place], [address] ECRCL 83.77 ml/min Normal 50-250 [facility] Comment on above: Performed By: #### L 500.4050, L501.2300, L100.0100, L501.2450, L501.9520 ####[facility] [address] [place], [address] GAP 15 Normal 5-15 [facility] Comment on above: Performed By: #### L 500.4050, L501.2300, L100.0100, L501.2450, L501.9520 ####[facility] [address] [place], [address] GFR/1.73 sq M.predicted among non-blacks MDRD (S/P/Bld) [Vol rate/Area] 102 mL/min/{1.73_m2} Normal >60 [facility] Comment on above: Result Comment: mL/m in/1.73m2 CKD-EPI Creatinine Equation (2020) Performed By: #### L 500.4050, L501.2300, L100.0100, L501.2450, L501.9520 ####[facility] [address] [place], [address] Globulin (S) [Mass/Vol] 2.8 g/dL Normal 2.2-4.2 [facility] Comment on above: Performed By: #### L 500.4050, L501.2300, L100.0100, L501.2450, L501.9520 ####[facility] [address] [place], [address] Glucose [Mass/Vol] 123 mg/dL High 70-99 [facility] Comment on above: Performed By: #### L 500.4050, L501.2300, L100.0100, L501.2450, L501.9520 ####[facility] [address] [place], [address] Potassium [Moles/Vol] 4.8 mmol/L Normal 3.3-5.1 [facility] Comment on above: Result Comment: Hemo lysis present, Results??could be affected.?? Performed By: #### L 500.4050, L501.2300, L100.0100, L501.2450, L501.9520 ####[facility] [address] [place], [address] Sodium [Moles/Vol] 135 mmol/L Normal 133-145 [facility] Comment on above: Performed By: #### L 500.4050, L501.2300, L100.0100, L501.2450, L501.9520 ####[facility] [address] [place], [address] T PROT 7.0 g/dL Normal 5.9-8.4 [facility] Comment on above: Performed By: #### L 500.4050, L501.2300, L100.0100, L501.2450, L501.9520 ####[facility] [address] [place], [address] Urea nitrogen [Mass/Vol] 16 mg/dL Normal 4-19 [facility] Comment on above: Performed By: #### L 500.4050, L501.2300, L100.0100, L501.2450, L501.9520 ####[facility] [address] [place], [address] Lipaseon 09-12-2024 Lipase [Catalytic activity/Vol] 50 U/L Normal 13-75 [facility] Comment on above: Result Comment: Liam rader note:LIPASE revised reference range effective 22.New Lipase methodology. Expected to produce lower valuesthan the previous assay method.NEW Reference Range: 13 - 75 U/L Performed By: #### L 500.4050, L501.2300, L100.0100, L501.2450, L501.9520 ####[facility] [address] [place], [address] MR/CON.PCM.GIon 09-12-2024 MR/CON.PCM.GI Normal [facility] Magnesiumon 09-12-2024 Magnesium [Mass/Vol] 1.8 mg/dL Normal 1.5-2.2 [facility] Comment on above: Performed By: #### L 501.5200 ####[facility] [address] [place], [address] Phosphoruson 09-12-2024 Phosphate [Mass/Vol] 3.7 mg/dL Normal 2.7-4.5 [facility] Comment on above: Performed By: #### L 500.4050, L501.2300, L100.0100, L501.2450, L501.9520 ####[facility] [address] [place], [address] Serum or plasma albumin/glob ulin mass ratioOrdered By: Sergio Whalen on 09-12-2024 Albumin/Globulin [Mass ratio] 1.5 {ratio} 0.9-2.4 [facility] TSH DL <= 0.005 mIU/L QnOrde red By: Sergio Whalen on 09-12-2024 TSH Qn 1.410 uIU/mL 0.300-4.20 0 [facility] Thyroid Stim Hormone (TSH)on 09-12-2024 TSH 1.410 uIU/mL Normal 0.300-4.20 0 [facility] Comment on above: Performed By: #### L 500.4050, L501.2300, L100.0100, L501.2450, L501.9520 ####[facility] [address] [place], [place], [id number] Abdomen/Pelvis W IV Cont ONL Yon 09-11-2024 Abdomen/Pelvis W IV Cont ONLY Normal [facility] Absolute lymphocyte countOrd ered By: Gage Sharma on 09-11-2024 Lymphocytes Auto (Unsp spec) [#/Vol] 0.49 10*3/uL Low 0.83-4.51 [facility] Anion gap in Serum or Plasma Ordered By: Gage Sharma on 09-11-2024 Anion gap [Moles/Vol] 15 mmol/L 5-15 [facility] Automated blood erythrocyte countOrdered By: Gage Sharma on 09-11-2024 RBC (Bld) [#/Vol] 4.45 10*6/uL Normal 4.2-5.4 [facility] Comment on above: Performed By: #### L 500.3400, L503.6005, L500.2500, L501.2450, L100.0100 ####[facility] [address] [place], [place], [id number] Automated blood hematocrit ( percentage)Ordered By: Gage Sharma on 09-11-2024 Hematocrit (Bld) [Volume fraction] 42.0 % Normal 37-47 [facility] Comment on above: Performed By: #### L 500.3400, L503.6005, L500.2500, L501.2450, L100.0100 ####[facility] [address] [place], [address] Automated lymphocyte count a s percentage of total leukocytesOrdered By: Gage Sharma on 09-11-2024 Lymphocytes/100 WBC Auto (Unsp spec) 3.6 % Low 19-41 [facility] BUN/creatinine ratioOrdered By: Gage Sharma on 09-11-2024 Urea nitrogen/Creatinine [Mass ratio] 24.2 mg/mg High 10-20 [facility] Basic Metabolic Profile (BMP )on 09-11-2024 BUN/CRE 24.2 RATIO High 10-20 [facility] Comment on above: Performed By: #### L 500.3400, L503.6005, L500.2500, L501.2450, L100.0100 ####[facility] [address] [place], [address] ECRCL 80.51 ml/min Normal 50-250 [facility] Comment on above: Performed By: #### L 500.3400, L503.6005, L500.2500, L501.2450, L100.0100 ####[facility] [address] [place], [address] GAP 15 Normal 5-15 [facility] Comment on above: Performed By: #### L 500.3400, L503.6005, L500.2500, L501.2450, L100.0100 ####[facility] [address] [place], [address] Potassium [Moles/Vol] 4.1 mmol/L Normal 3.3-5.1 [facility] Comment on above: Performed By: #### L 500.3400, L503.6005, L500.2500, L501.2450, L100.0100 ####[facility] [address] [place], [address] Basophil percentageOrdered B y: Gage Sharma on 09-11-2024 Basophils/100 WBC (Bld) 0.3 % Normal 0-1 [facility] Comment on above: Performed By: #### L 500.3400, L503.6005, L500.2500, L501.2450, L100.0100 ####[facility] [address] [place], [place], [address] Bilirubin Test strip Ql (U)O rdered By: Gage Sharma on 09-11-2024 Bilirubin Ql (U) Negative Negative [facility] Bilirubin directOrdered By: Gage Sharma on 09-11-2024 Bilirubin.direct [Mass/Vol] 0.50 mg/dL High 0.00-0.30 [facility] Comment on above: Performed By: #### L 500.3400, L503.6005, L500.2500, L501.2450, L100.0100 ####[facility] [address] [place], [place], [address] Bilirubin, totalOrdered By: Gage Sharma on 09-11-2024 Bilirubin [Mass/Vol] 0.97 mg/dL Normal 0.00-1.30 [facility] Comment on above: Performed By: #### L 500.3400, L503.6005, L500.2500, L501.2450, L100.0100 ####[facility] [address] [place], [place], [id number] CBC W/Diff, Automatedon 07-0 Absolute Lymph 0.49 X10 3/uL Low 0.83-4.51 [facility] Comment on above: Performed By: #### L 500.3400, L503.6005, L500.2500, L501.2450, L100.0100 ####[facility] [address] [place], [address] Absolute Neut 13.0 X10 3/uL High 2.0-7.7 [facility] Comment on above: Performed By: #### L 500.3400, L503.6005, L500.2500, L501.2450, L100.0100 ####[facility] [address] [place], [place], [phone] IG% 0.600 Normal 0.0-0.9 [facility] Comment on above: Result Comment: IG% - Immature Granulocytes (promyelocytes, myelocytes andmetamyelocytes) > 1% indicates that a LEFT SHIFT is Present. Performed By: #### L 500.3400, L503.6005, L500.2500, L501.2450, L100.0100 ####[facility] [address] [place], [address] Lymphocytes/100 WBC (Bld) 3.6 % Low 19-41 [facility] Comment on above: Performed By: #### L 500.3400, L503.6005, L500.2500, L501.2450, L100.0100 ####[facility] [address] [place], [address] MCHC (RBC) [Mass/Vol] 32.9 g/dL Normal 32-36 [facility] Comment on above: Performed By: #### L 500.3400, L503.6005, L500.2500, L501.2450, L100.0100 ####[facility] [address] [place], [address] Nucleated RBC (Bld) [#/Vol] 0 10*3/uL Normal 0-5 [facility] Comment on above: Performed By: #### L 500.3400, L503.6005, L500.2500, L501.2450, L100.0100 ####[facility] [address] [place], [address] Platelet mean volume (Bld) [Entitic vol] 10.2 fL Normal 6.2-12.0 [facility] Comment on above: Performed By: #### L 500.3400, L503.6005, L500.2500, L501.2450, L100.0100 ####[facility] [address] [place], [address] RDW SD 49.9 fl High 35.1-43.9 [facility] Comment on above: Performed By: #### L 500.3400, L503.6005, L500.2500, L501.2450, L100.0100 ####[facility] [address] [place], [address] Absolute Lymph 0.51 X10 3/uL Low 0.83-4.51 [facility] Comment on above: Performed By: #### L 100.0100, L500.4050, L501.2450 ####[facility] [address] [place], [address] Absolute Neut 14.0 X10 3/uL High 2.0-7.7 [facility] Comment on above: Performed By: #### L 100.0100, L500.4050, L501.2450 ####[facility] [address] [place], [address] Basophils/100 WBC (Bld) 0.4 % Normal 0-1 [facility] Comment on above: Performed By: #### L 100.0100, L500.4050, L501.2450 ####[facility] [address] [place], [address] Erythrocyte distribution width (RBC) [Ratio] 14.5 % Normal 11.6-14.6 [facility] Comment on above: Performed By: #### L 100.0100, L500.4050, L501.2450 ####[facility] [address] [place], [address] Hematocrit (Bld) [Volume fraction] 43.2 % Normal 37-47 [facility] Comment on above: Performed By: #### L 100.0100, L500.4050, L501.2450 ####[facility] [address] [place], [address] Hemoglobin (Bld) [Mass/Vol] 14.1 g/dL Normal 12.0-15.0 [facility] Comment on above: Performed By: #### L 100.0100, L500.4050, L501.2450 ####[facility] [address] [place], [address] IG% 0.500 Normal 0.0-0.9 [facility] Comment on above: Result Comment: IG% - Immature Granulocytes (promyelocytes, myelocytes andmetamyelocytes) > 1% indicates that a LEFT SHIFT is Present. Performed By: #### L 100.0100, L500.4050, L501.2450 ####[facility] [address] [place], [address] Lymphocytes/100 WBC (Bld) 3.5 % Low 19-41 [facility] Comment on above: Performed By: #### L 100.0100, L500.4050, L501.2450 ####[facility] [address] [place], [address] MCH (RBC) [Entitic mass] 30.7 pg Normal 27.0-32.0 [facility] Comment on above: Performed By: #### L 100.0100, L500.4050, L501.2450 ####[facility] [address] [place], [address] MCHC (RBC) [Mass/Vol] 32.6 g/dL Normal 32-36 [facility] Comment on above: Performed By: #### L 100.0100, L500.4050, L501.2450 ####[facility] [address] [place], [address] MCV (RBC) [Entitic vol] 93.9 fL Normal 81-99 [facility] Comment on above: Performed By: #### L 100.0100, L500.4050, L501.2450 ####[facility] [address] [place], [address] Neutrophils/100 WBC (Bld) 94.8 % High 47-70 [facility] Comment on above: Performed By: #### L 100.0100, L500.4050, L501.2450 ####[facility] [address] [place], [address] Nucleated RBC (Bld) [#/Vol] 0 10*3/uL Normal 0-5 [facility] Comment on above: Performed By: #### L 100.0100, L500.4050, L501.2450 ####[facility] [address] [place], [address] Platelet mean volume (Bld) [Entitic vol] 11.1 fL Normal 6.2-12.0 [facility] Comment on above: Performed By: #### L 100.0100, L500.4050, L501.2450 ####[facility] [address] [place], [address] Platelets (Bld) [#/Vol] 338 10*3/uL Normal 150-450 [facility] Comment on above: Performed By: #### L 100.0100, L500.4050, L501.2450 ####[facility] [address] [place], [address] RBC (Bld) [#/Vol] 4.60 10*6/uL Normal 4.2-5.4 [facility] Comment on above: Performed By: #### L 100.0100, L500.4050, L501.2450 ####[facility] [address] [place], [address] RDW SD 49.7 fl High 35.1-43.9 [facility] Comment on above: Performed By: #### L 100.0100, L500.4050, L501.2450 ####[facility] [address] [place], [address] WBC (Bld) [#/Vol] 14.8 10*3/uL High 4.4-11.0 [facility] Comment on above: Performed By: #### L 100.0100, L500.4050, L501.2450 ####[facility] [address] [place], [address] Carbon dioxide, total [Moles /volume] in Central venous bloodOrdered By: Gage Sharma on 09-11-2024 CO2 [Moles/Vol] 17.8 mmol/L Low 21.0-32.0 [facility] Comment on above: Performed By: #### L 500.3400, L503.6005, L500.2500, L501.2450, L100.0100 ####[facility] [address] [place], [address] Chloride assayOrdered By: Jose Maria Sharma on 09-11-2024 Chloride [Moles/Vol] 105 mmol/L Normal 98-108 [facility] Comment on above: Performed By: #### L 500.3400, L503.6005, L500.2500, L501.2450, L100.0100 ####[facility] [address] [place], [address] Comprehensive Metabolic Prof ilon 09-11-2024 Albumin/Globulin [Mass ratio] 1.4 {ratio} Normal 0.9-2.4 [facility] Comment on above: Performed By: #### L 100.0100, L500.4050, L501.2450 ####[facility] [address] [place], [address] ALK PHOS 164 U/L High 35-104 [facility] Comment on above: Performed By: #### L 100.0100, L500.4050, L501.2450 ####[facility] [address] [place], [address] ALT [Catalytic activity/Vol] 24 U/L Normal <=34 [facility] Comment on above: Performed By: #### L 100.0100, L500.4050, L501.2450 ####[facility] [address] [place], [address] AST [Catalytic activity/Vol] 27 U/L Normal <=31 [facility] Comment on above: Result Comment: Hemo lysis present, Results??could be affected.?? Performed By: #### L 100.0100, L500.4050, L501.2450 ####[facility] [address] [place], [address] Bilirubin [Mass/Vol] 0.87 mg/dL Normal 0.00-1.30 [facility] Comment on above: Performed By: #### L 100.0100, L500.4050, L501.2450 ####[facility] [address] [place], [address] BUN/CRE 20.4 RATIO High 10-20 [facility] Comment on above: Performed By: #### L 100.0100, L500.4050, L501.2450 ####[facility] [address] [place], [address] Calcium [Mass/Vol] 9.7 mg/dL Normal 7.6-11.0 [facility] Comment on above: Performed By: #### L 100.0100, L500.4050, L501.2450 ####[facility] [address] [place], [address] Chloride [Moles/Vol] 104 mmol/L Normal 98-108 [facility] Comment on above: Performed By: #### L 100.0100, L500.4050, L501.2450 ####[facility] [address] [place], [address] CO2 [Moles/Vol] 18.9 mmol/L Low 21.0-32.0 [facility] Comment on above: Performed By: #### L 100.0100, L500.4050, L501.2450 ####[facility] [address] [place], [address] Creatinine [Mass/Vol] 0.84 mg/dL Normal 0.70-1.20 [facility] Comment on above: Performed By: #### L 100.0100, L500.4050, L501.2450 ####[facility] [address] [place], [address] ECRCL 73.80 ml/min Normal 50-250 [facility] Comment on above: Performed By: #### L 100.0100, L500.4050, L501.2450 ####[facility] [address] [place], [address] GAP 14 Normal 5-15 [facility] Comment on above: Performed By: #### L 100.0100, L500.4050, L501.2450 ####[facility] [address] [place], [address] GFR/1.73 sq M.predicted among non-blacks MDRD (S/P/Bld) [Vol rate/Area] 88 mL/min/{1.73_m2} Normal >60 [facility] Comment on above: Result Comment: mL/m in/1.73m2 CKD-EPI Creatinine Equation (2020) Performed By: #### L 100.0100, L500.4050, L501.2450 ####[facility] [address] [place], [address] Globulin (S) [Mass/Vol] 3.1 g/dL Normal 2.2-4.2 [facility] Comment on above: Performed By: #### L 100.0100, L500.4050, L501.2450 ####[facility] [address] [place], [address] Glucose [Mass/Vol] 107 mg/dL High 70-99 [facility] Comment on above: Performed By: #### L 100.0100, L500.4050, L501.2450 ####[facility] [address] [place], [address] Potassium [Moles/Vol] 4.2 mmol/L Normal 3.3-5.1 [facility] Comment on above: Result Comment: Hemo lysis present, Results??could be affected.?? Performed By: #### L 100.0100, L500.4050, L501.2450 ####[facility] [address] [place], [address] Sodium [Moles/Vol] 137 mmol/L Normal 133-145 [facility] Comment on above: Performed By: #### L 100.0100, L500.4050, L501.2450 ####[facility] [address] [place], [address] T PROT 7.5 g/dL Normal 5.9-8.4 [facility] Comment on above: Performed By: #### L 100.0100, L500.4050, L501.2450 ####[facility] [address] [place], [address] Urea nitrogen [Mass/Vol] 17 mg/dL Normal 4-19 [facility] Comment on above: Performed By: #### L 100.0100, L500.4050, L501.2450 ####[facility] [address] [place], [address] Emergency Department Summary on 09-11-2024 Emergency Department Summary Normal [facility] Eosinophil percentageOrdered By: Gage Sharma on 09-11-2024 Eosinophils/100 WBC (Bld) 0.1 % Normal 0-5 [facility] Comment on above: Performed By: #### L 500.3400, L503.6005, L500.2500, L501.2450, L100.0100 ####[facility] [address] [place], [address] Performed By: #### L 100.0100, L500.4050, L501.2450 ####[facility] [address] [place], [address] Erythrocyte distribution wid th ratioOrdered By: Gage Sharma on 09-11-2024 Erythrocyte distribution width (RBC) [Ratio] 14.6 % Normal 11.6-14.6 [facility] Comment on above: Performed By: #### L 500.3400, L503.6005, L500.2500, L501.2450, L100.0100 ####[facility] [address] [place], [address] Erythrocyte distribution wid th standard deviationOrdered By: Gage Batista on 09-11-2024 Erythrocyte distribution width (RBC) [Ratio] 49.9 fl High 35.1-43.9 [facility] Glomerular filtration rate ( GFR) estimation/1.73 sq m using serum, plasma, or whole bOrdered By: Gagejuan Sharma on 09-11-2024 GFR/1.73 sq M.predicted among non-blacks MDRD (S/P/Bld) [Vol rate/Area] 97 mL/min/{1.73_m2} Normal >60 [facility] Comment on above: Result Comment: mL/m in/1.73m2 CKD-EPI Creatinine Equation (2020) Performed By: #### L 500.3400, L503.6005, L500.2500, L501.2450, L100.0100 ####[facility] [address] [place], [address] H AND P Exam - [place] 09-11-2024 H&P Exam - Hospitalist Normal [place] Hemoglobin measurementOrdere d By: Gage HortoncindiLynne on 09-11-2024 Hemoglobin (Bld) [Mass/Vol] 13.8 g/dL Normal 12.0-15.0 [facility] Comment on above: Performed By: #### L 500.3400, L503.6005, L500.2500, L501.2450, L100.0100 ####[facility] [address] [place], [address] Immature granulocytes/100 WB C Auto (Bld)Ordered By: [facility] on 09-11-2024 Immature granulocytes/100 WBC (Bld) 0.600 % 0.0-0.9 [facility] Ketones Test strip Ql (U)Ord ered By: [facility] on 09-11-2024 Ketones Ql (U) Negative Negative [facility] Lactic Acidon 09-11-2024 Lactate [Moles/Vol] 1.6 mmol/L Normal 0.0-2.0 [facility] Comment on above: Order Comment: Y Performed By: #### L 500.3400, L503.6005, L500.2500, L501.2450, L100.0100 ####[facility] [address] [place], [address] Lipaseon 09-11-2024 Lipase [Catalytic activity/Vol] 113 U/L High 13-75 [facility] Comment on above: Result Comment: Liam rader note:LIPASE revised reference range effective 22.New Lipase methodology. Expected to produce lower valuesthan the previous assay method.NEW Reference Range: 13 - 75 U/L Performed By: #### L 500.3400, L503.6005, L500.2500, L501.2450, L100.0100 ####[facility] [address] [place], [address] Lipase [Catalytic activity/Vol] 112 U/L High 13-75 [facility] Comment on above: Result Comment: Liam rader note:LIPASE revised reference range effective 22.New Lipase methodology. Expected to produce lower valuesthan the previous assay method.NEW Reference Range: 13 - 75 U/L Performed By: #### L 100.0100, L500.4050, L501.2450 ####[facility] [address] [place], [address] Liver Profileon 09-11-2024 ALK PHOS 163 U/L High 35-104 [facility] Comment on above: Performed By: #### L 500.3400, L503.6005, L500.2500, L501.2450, L100.0100 ####[facility] [address] [place], [address] AST [Catalytic activity/Vol] 23 U/L Normal <=31 [facility] Comment on above: Performed By: #### L 500.3400, L503.6005, L500.2500, L501.2450, L100.0100 ####[facility] [address] [place], [address] T PROT 7.4 g/dL Normal 5.9-8.4 [facility] Comment on above: Performed By: #### L 500.3400, L503.6005, L500.2500, L501.2450, L100.0100 ####[facility] [address] [place], [address] MCV (mean corpuscular volume ) determinationOrdered By: Gage Sharma on 09-11-2024 MCV (RBC) [Entitic vol] 94.4 fL Normal 81-99 [facility] Comment on above: Performed By: #### L 500.3400, L503.6005, L500.2500, L501.2450, L100.0100 ####[facility] [address] [place], [address] Magnesium measurement (mass/ volume)Ordered By: Sergio Whalen on 09-11-2024 Magnesium (Unsp spec) [Mass/Vol] 1.8 mg/dL 1.5-2.2 [facility] Mean corpuscular hemoglobin (MCH) determinationOrdered By: Gage Sharma on 09-11-2024 MCH (RBC) [Entitic mass] 31.0 pg Normal 27.0-32.0 [facility] Comment on above: Performed By: #### L 500.3400, L503.6005, L500.2500, L501.2450, L100.0100 ####[facility] [address] [place], [address] Monocyte percentageOrdered B y: Gage Sharma on 09-11-2024 Monocytes/100 WBC (Bld) 0.7 % Normal 0-10 [facility] Comment on above: Performed By: #### L 500.3400, L503.6005, L500.2500, L501.2450, L100.0100 ####[facility] [address] [place], [address] Performed By: #### L 100.0100, L500.4050, L501.2450 ####[facility] [address] [place], [address] Mucus LM Ql (Urine sed)Order ed By: Gage Sharma on 09-11-2024 Mucus Ql (Urine sed) 0 SEEN /hpf [facility] Neutrophil percentageOrdered By: Gage Sharma on 09-11-2024 Neutrophils/100 WBC (Bld) 94.7 % High 47-70 [facility] Comment on above: Performed By: #### L 500.3400, L503.6005, L500.2500, L501.2450, L100.0100 ####[facility] [address] [place], [address] Nitrite Test strip Ql (U)Ord ered By: Gage Sharma on 09-11-2024 Nitrite Ql (U) Negative Negative [facility] No Panel InformationOrdered By: Gage Sharma on 09-11-2024 23 U/L <32 [facility] Platelet countOrdered By: Jose Maria Sharma on 09-11-2024 Platelets (Bld) [#/Vol] 349 10*3/uL Normal 150-450 [facility] Comment on above: Performed By: #### L 500.3400, L503.6005, L500.2500, L501.2450, L100.0100 ####[facility] [address] [place], [place], [address] Potassium measurement (mass/ volume)Ordered By: Gage Sharma on 09-11-2024 Potassium (Unsp spec) [Mass/Vol] 4.1 mmol/L 3.3-5.1 [facility] ,Serum,hCG Quali.on 09-11-2024 HCG, SERUM QUAL Negative Normal [facility] Comment on above: Performed By: #### L 700.6800 ####[facility] [address] [place], [place], [address] Protein Test strip Ql (U)Ord ered By: Gage Sharma on 09-11-2024 Protein Ql (U) 100 mg/dl High Negative [facility] Serum beta-hCG test, qualita tiveOrdered By: Gage Sharma on 09-11-2024 Beta HCG ( test) Ql Negative [facility] Serum creatinine measurement (mass/volume)Ordered By: Gage Sharma on 09-11-2024 Creatinine [Mass/Vol] 0.77 mg/dL Normal 0.70-1.20 [facility] Comment on above: Performed By: #### L 500.3400, L503.6005, L500.2500, L501.2450, L100.0100 ####[facility] [address] [place], [address] Serum globulin measurementOr dered By: Gage Sharma on 09-11-2024 Globulin (S) [Mass/Vol] 3.0 g/dL Normal 2.2-4.2 [facility] Comment on above: Performed By: #### L 500.3400, L503.6005, L500.2500, L501.2450, L100.0100 ####[facility] [address] [place], [address] Serum glucose measurement (m ass/volume)Ordered By: Gage Sharma on 09-11-2024 Glucose [Mass/Vol] 132 mg/dL High 70-99 [facility] Comment on above: Performed By: #### L 500.3400, L503.6005, L500.2500, L501.2450, L100.0100 ####[facility] [address] [place], [address] Serum or plasma alanine hair otransferase (ALT) measurementOrdered By: Gagejuan Sharma on 09-11-2024 ALT [Catalytic activity/Vol] 17 U/L Normal <=34 [facility] Comment on above: Performed By: #### L 500.3400, L503.6005, L500.2500, L501.2450, L100.0100 ####[facility] [address], [address] Serum or plasma albumin leslie urement (mass/volume)Ordered By: Gage Batista on 09-11-2024 Albumin [Mass/Vol] 4.4 g/dL Normal 3.5-5.0 [facility] Comment on above: Performed By: #### L 500.3400, L503.6005, L500.2500, L501.2450, L100.0100 ####[facility] [address] [place], [address] Performed By: #### L 100.0100, L500.4050, L501.2450 ####[facility] [address] [place], [address] Serum or plasma albumin/glob ulin mass ratioOrdered By: ED PROVIDER on 09-11-2024 Albumin/Globulin [Mass ratio] 1.4 {ratio} 0.9-2.4 [facility] Serum or plasma alkaline delfin sphatase measurementOrdered By: Gage Sharma on 09-11-2024 ALP [Catalytic activity/Vol] 163 U/L High 35-104 [facility] Serum or plasma calcium leslie urement (mass/volume)Ordered By: Gage Casanova Lynne on 09-11-2024 Calcium [Mass/Vol] 9.4 mg/dL Normal 7.6-11.0 [facility] Comment on above: Performed By: #### L 500.3400, L503.6005, L500.2500, L501.2450, L100.0100 ####[facility] [address] [place], [address] Serum or plasma urea nitroge n measurement (mass/volume)Ordered By: Gagejuan CasanovaLynne on 09-11-2024 Urea nitrogen [Mass/Vol] 19 mg/dL Normal 4-19 [facility] Comment on above: Performed By: #### L 500.3400, L503.6005, L500.2500, L501.2450, L100.0100 ####[facility] [address] [place], [address] Sodium levelOrdered By: Edd Sharma on 09-11-2024 Sodium [Moles/Vol] 138 mmol/L Normal 133-145 [facility] Comment on above: Performed By: #### L 500.3400, L503.6005, L500.2500, L501.2450, L100.0100 ####[facility] [address] [place], [address] Squamous epithelial cells de tection in urine sediment by light microscopyOrdered By: Gage Sharma on 09-11-2024 Epithelial cells.squamous LM Ql (Urine sed) 10-25 SEEN /hpf - [facility] Total proteinOrdered By: Zev Sharma on 09-11-2024 Protein [Mass/Vol] 7.4 g/dL 5.9-8.4 [facility] Urinalysis, Completeon 09-11 EPI,SQUAMOUS 10-25 SEEN Normal -10 [facility] Comment on above: Order Comment: HARITHA CTOR TO SPECIFY Performed By: #### L 400.0001 ####[facility] [address] [facility] [address] RBC 0-5 SEEN Normal 0-5 [facility] Comment on above: Order Comment: HARITHA CTOR TO SPECIFY Performed By: #### L 400.0001 ####[facility] [address] [place], [address] WBC 0-5 SEEN Normal 0-5 [facility] Comment on above: Order Comment: HARITHA CTOR TO SPECIFY Performed By: #### L 400.0001 ####[facility] [address] [place], [address] BACTERIA 0 SEEN Normal None Seen [facility] Comment on above: Order Comment: HARITHA CTOR TO SPECIFY Performed By: #### L 400.0001 ####[facility] [address] [place], [address] Mucus Ql (Urine sed) 0 SEEN Normal [facility] Comment on above: Order Comment: HARITHA CTOR TO SPECIFY Performed By: #### L 400.0001 ####[facility] [address] [place], [address] Urine clarityOrdered By: Zev Sharma on 09-11-2024 Clarity (U) Sl. Cloudy Clear [facility] Urine color determinationOrd ered By: Gage Sharma on 09-11-2024 Color (U) Yellow Yellow [facility] Urine glucose detectionOrder ed By: Gage Sharma on 09-11-2024 Glucose Ql (U) Normal mg/dl Normal [facility] Urine leukocyte esterase det ection by dipstickOrdered By: Gage Sharma on 09-11-2024 Leukocyte esterase Test strip Ql (U) Negative Negative [facility] Urine pHOrdered By: Gage Keller on 09-11-2024 pH (U) 7.0 [pH] 5.0 - 8.0 [facility] Urine sediment bacteria coun t by microscopy (number/high power field)Ordered By: Gage Sharma on 09-11-2024 Bacteria LM.HPF (Urine sed) [#/Area] 0 /[HPF] None Seen [facility] Urine specific gravity measu rementOrdered By: Gage Sharma on 09-11-2024 Specific gravity (U) [Rel density] 1.010 1.002-1.03 0 [facility] Urine urobilinogen measureme ntOrdered By: Gage Sharma on 09-11-2024 Urobilinogen Ql (U) 1 mg/dl High Normal [facility] White blood cell (WBC) count Ordered By: Gage Sharma on 09-11-2024 WBC (Bld) [#/Vol] 13.7 10*3/uL High 4.4-11.0 [facility] Comment on above: Performed By: #### L 500.3400, L503.6005, L500.2500, L501.2450, L100.0100 ####[facility] [address] [place], [place], [id number] White blood cell countOrdere d By: Gage Sharma on 09-11-2024 White blood cell count 0-5 SEEN /hpf 0-5 [facility] CBC W/Diff, Automatedon 08-12 Absolute Neut Normal 2.0-7.7 [facility] Comment on above: Result Comment: Canc elled via OM: Order cancelled - Patient discharged Performed By: #### L 100.0100 ####[facility] [address] [place], [address] HCT Normal 37-47 [facility] Comment on above: Result Comment: Canc elled via OM: Order cancelled - Patient discharged Performed By: #### L 100.0100 ####[facility] [address] [place], [address] HGB Normal 12.0-15.0 [facility] Comment on above: Result Comment: Canc elled via OM: Order cancelled - Patient discharged Performed By: #### L 100.0100 ####[facility] [address] [place], [address] MCH Normal 27.0-32.0 [facility] Comment on above: Result Comment: Canc elled via OM: Order cancelled - Patient discharged Performed By: #### L 100.0100 ####[facility] [address] [place], [address] MCHC Normal 32-36 [facility] Comment on above: Result Comment: Canc elled via OM: Order cancelled - Patient discharged Performed By: #### L 100.0100 ####[facility] [address] [place], [address] MCV Normal 81-99 [facility] Comment on above: Result Comment: Canc elled via OM: Order cancelled - Patient discharged Performed By: #### L 100.0100 ####[facility] [address] [place], [address] NEUT% Normal 47-70 [facility] Comment on above: Result Comment: Canc elled via OM: Order cancelled - Patient discharged Performed By: #### L 100.0100 ####[facility] [address] [place], [address] PLT Normal 150-450 [facility] Comment on above: Result Comment: Canc elled via OM: Order cancelled - Patient discharged Performed By: #### L 100.0100 ####[facility] [address] [place], [address] RBC Normal 4.2-5.4 [facility] Comment on above: Result Comment: Canc elled via OM: Order cancelled - Patient discharged Performed By: #### L 100.0100 ####[facility] [address] [place], [address] RDW CV Normal 11.6-14.6 [facility] Comment on above: Result Comment: Canc elled via OM: Order cancelled - Patient discharged Performed By: #### L 100.0100 ####[facility] [address] [place], [address] RDW SD Normal 35.1-43.9 [facility] Comment on above: Result Comment: Canc elled via OM: Order cancelled - Patient discharged Performed By: #### L 100.0100 ####[facility] [address] [place], [address] WBC Normal 4.4-11.0 [facility] Comment on above: Result Comment: Canc elled via OM: Order cancelled - Patient discharged Performed By: #### L 100.0100 ####[facility] [address] [place], [address] CBC W/Diff, Automatedon 06-1 -2024 Absolute Neut Normal 2.0-7.7 [facility] Comment on above: Result Comment: Canc elled via OM: Order cancelled - Patient discharged Performed By: #### L 100.0100 ####[facility] [address] [place], [address] HCT Normal 37-47 [facility] Comment on above: Result Comment: Canc elled via OM: Order cancelled - Patient discharged Performed By: #### L 100.0100 ####[facility] [address] [place], [address] HGB Normal 12.0-15.0 [facility] Comment on above: Result Comment: Canc elled via OM: Order cancelled - Patient discharged Performed By: #### L 100.0100 ####[facility] [address] [place], [address] MCH Normal 27.0-32.0 [facility] Comment on above: Result Comment: Canc elled via OM: Order cancelled - Patient discharged Performed By: #### L 100.0100 ####[facility] [address] [place], [address] MCHC Normal 32-36 [facility] Comment on above: Result Comment: Canc elled via OM: Order cancelled - Patient discharged Performed By: #### L 100.0100 ####[facility] [address] [place], [address] MCV Normal 81-99 [facility] Comment on above: Result Comment: Canc elled via OM: Order cancelled - Patient discharged Performed By: #### L 100.0100 ####[facility] [address] [place], [address] NEUT% Normal 47-70 [facility] Comment on above: Result Comment: Canc elled via OM: Order cancelled - Patient discharged Performed By: #### L 100.0100 ####[facility] [address] [place], [address] PLT Normal 150-450 [facility] Comment on above: Result Comment: Canc elled via OM: Order cancelled - Patient discharged Performed By: #### L 100.0100 ####[facility] [address] [place], [address] RBC Normal 4.2-5.4 [facility] Comment on above: Result Comment: Canc elled via OM: Order cancelled - Patient discharged Performed By: #### L 100.0100 ####[facility] [address] [place], [address] RDW CV Normal 11.6-14.6 [facility] Comment on above: Result Comment: Canc elled via OM: Order cancelled - Patient discharged Performed By: #### L 100.0100 ####[facility] [address] [place], [address] RDW SD Normal 35.1-43.9 [facility] Comment on above: Result Comment: Canc elled via OM: Order cancelled - Patient discharged Performed By: #### L 100.0100 ####[facility] [address] [place], [address] WBC Normal 4.4-11.0 [facility] Comment on above: Result Comment: Canc elled via OM: Order cancelled - Patient discharged Performed By: #### L 100.0100 ####[facility] [address] [place], [address] Gastric Emptying Studyon -2024 Gastric Emptying Study Normal [place] CBC W/Diff, Automatedon 08-12 Absolute Neut Normal 2.0-7.7 [facility] Comment on above: Result Comment: Canc elled via OM: Order cancelled - Patient discharged Performed By: #### L 100.0100 ####[facility] [address] [place], [address] HCT Normal 37-47 [facility] Comment on above: Result Comment: Canc elled via OM: Order cancelled - Patient discharged Performed By: #### L 100.0100 ####[facility] [address] [place], [address] HGB Normal 12.0-15.0 [facility] Comment on above: Result Comment: Canc elled via OM: Order cancelled - Patient discharged Performed By: #### L 100.0100 ####[facility] [address] [place], [address] MCH Normal 27.0-32.0 [facility] Comment on above: Result Comment: Canc elled via OM: Order cancelled - Patient discharged Performed By: #### L 100.0100 ####[facility] [address] [place], [address] MCHC Normal 32-36 [facility] Comment on above: Result Comment: Canc elled via OM: Order cancelled - Patient discharged Performed By: #### L 100.0100 ####[facility] [address] [place], [address] MCV Normal 81-99 [facility] Comment on above: Result Comment: Canc elled via OM: Order cancelled - Patient discharged Performed By: #### L 100.0100 ####[facility] [address] [place], [address] NEUT% Normal 47-70 [facility] Comment on above: Result Comment: Canc elled via OM: Order cancelled - Patient discharged Performed By: #### L 100.0100 ####[facility] [address] [place], [address] PLT Normal 150-450 [facility] Comment on above: Result Comment: Canc elled via OM: Order cancelled - Patient discharged Performed By: #### L 100.0100 ####[facility] [address] [place], [address] RBC Normal 4.2-5.4 [facility] Comment on above: Result Comment: Canc elled via OM: Order cancelled - Patient discharged Performed By: #### L 100.0100 ####[facility] [address] [place], [address] RDW CV Normal 11.6-14.6 [facility] Comment on above: Result Comment: Canc elled via OM: Order cancelled - Patient discharged Performed By: #### L 100.0100 ####[facility] [address] [place], [address] RDW SD Normal 35.1-43.9 [facility] Comment on above: Result Comment: Canc elled via OM: Order cancelled - Patient discharged Performed By: #### L 100.0100 ####[facility] [address] [place], [address] WBC Normal 4.4-11.0 [facility] Comment on above: Result Comment: Canc elled via OM: Order cancelled - Patient discharged Performed By: #### L 100.0100 ####[facility] [address] [place], [address] MRCP Abdomen without Contras ton 08-27-2024 MRCP Abdomen without Contrast Normal [facility] CBC W/Diff, Automatedon 08-12 Absolute Neut Normal 2.0-7.7 [facility] Comment on above: Result Comment: Canc elled via OM: Order cancelled - Patient discharged Performed By: #### L 100.0100, L500.4050 ####[facility] [address] [place], [address] HCT Normal 37-47 [facility] Comment on above: Result Comment: Canc elled via OM: Order cancelled - Patient discharged Performed By: #### L 100.0100, L500.4050 ####[facility] [address] [place], [address] HGB Normal 12.0-15.0 [facility] Comment on above: Result Comment: Canc elled via OM: Order cancelled - Patient discharged Performed By: #### L 100.0100, L500.4050 ####[facility] [address] [place], [address] MCH Normal 27.0-32.0 [facility] Comment on above: Result Comment: Canc elled via OM: Order cancelled - Patient discharged Performed By: #### L 100.0100, L500.4050 ####[facility] [address] [place], [address] MCHC Normal 32-36 [facility] Comment on above: Result Comment: Canc elled via OM: Order cancelled - Patient discharged Performed By: #### L 100.0100, L500.4050 ####[facility] [address] [place], [address] MCV Normal 81-99 [facility] Comment on above: Result Comment: Canc elled via OM: Order cancelled - Patient discharged Performed By: #### L 100.0100, L500.4050 ####[facility] [address] [place], [address] NEUT% Normal 47-70 [facility] Comment on above: Result Comment: Canc elled via OM: Order cancelled - Patient discharged Performed By: #### L 100.0100, L500.4050 ####[facility] [address] [place], [address] PLT Normal 150-450 [facility] Comment on above: Result Comment: Canc elled via OM: Order cancelled - Patient discharged Performed By: #### L 100.0100, L500.4050 ####[facility] [address] [place], [address] RBC Normal 4.2-5.4 [facility] Comment on above: Result Comment: Canc elled via OM: Order cancelled - Patient discharged Performed By: #### L 100.0100, L500.4050 ####[facility] [address] [place], [address] RDW CV Normal 11.6-14.6 [facility] Comment on above: Result Comment: Canc elled via OM: Order cancelled - Patient discharged Performed By: #### L 100.0100, L500.4050 ####[facility] [address] [place], [address] RDW SD Normal 35.1-43.9 [facility] Comment on above: Result Comment: Canc elled via OM: Order cancelled - Patient discharged Performed By: #### L 100.0100, L500.4050 ####[facility] [address] [place], [address] WBC Normal 4.4-11.0 [facility] Comment on above: Result Comment: Canc elled via OM: Order cancelled - Patient discharged Performed By: #### L 100.0100, L500.4050 ####[facility] [address] [place], [address] Comprehensive Metabolic Prof ilon 08-26-2024 ALB Normal 3.5-5.0 [facility] Comment on above: Result Comment: Canc elled via OM: Order cancelled - Patient discharged Performed By: #### L 100.0100, L500.4050 ####[facility] [address] [place], [address] ALK PHOS Normal 35-104 [facility] Comment on above: Result Comment: Canc elled via OM: Order cancelled - Patient discharged Performed By: #### L 100.0100, L500.4050 ####[facility] [address] [place], [address] ALT Normal <=34 [facility] Comment on above: Result Comment: Canc elled via OM: Order cancelled - Patient discharged Performed By: #### L 100.0100, L500.4050 ####[facility] [address] [place], [address] AST Normal <=31 [facility] Comment on above: Result Comment: Canc elled via OM: Order cancelled - Patient discharged Performed By: #### L 100.0100, L500.4050 ####[facility] [address] [place], [address] BUN Normal 4-19 [facility] Comment on above: Result Comment: Canc elled via OM: Order cancelled - Patient discharged Performed By: #### L 100.0100, L500.4050 ####[facility] [address] [place], [address] BUN/CRE Normal 10-20 [facility] Comment on above: Result Comment: Canc elled via OM: Order cancelled - Patient discharged Performed By: #### L 100.0100, L500.4050 ####[facility] [address] [place], [address] Calcium Normal 7.6-11.0 [facility] Comment on above: Result Comment: Canc elled via OM: Order cancelled - Patient discharged Performed By: #### L 100.0100, L500.4050 ####[facility] [address] [place], [address] CL Normal 98-108 [facility] Comment on above: Result Comment: Canc elled via OM: Order cancelled - Patient discharged Performed By: #### L 100.0100, L500.4050 ####[facility] [address] [place], [address] CO2 Normal 21.0-32.0 [facility] Comment on above: Result Comment: Canc elled via OM: Order cancelled - Patient discharged Performed By: #### L 100.0100, L500.4050 ####[facility] [address] [place], [address] CREAT,SERUM Normal 0.70-1.20 [facility] Comment on above: Result Comment: Canc elled via OM: Order cancelled - Patient discharged Performed By: #### L 100.0100, L500.4050 ####[facility] [address] [place], [address] eGFR Normal >60 [facility] Comment on above: Result Comment: Canc elled via OM: Order cancelled - Patient discharged Performed By: #### L 100.0100, L500.4050 ####[facility] [address] [place], [address] GAP Normal 5-15 [facility] Comment on above: Result Comment: Canc elled via OM: Order cancelled - Patient discharged Performed By: #### L 100.0100, L500.4050 ####[facility] [address] [place], [address] GLU Normal 70-99 [facility] Comment on above: Result Comment: Canc elled via OM: Order cancelled - Patient discharged Performed By: #### L 100.0100, L500.4050 ####[facility] [address] [place], [address] Potassium Normal 3.3-5.1 [facility] Comment on above: Result Comment: Canc elled via OM: Order cancelled - Patient discharged Performed By: #### L 100.0100, L500.4050 ####[facility] [address] [place], [address] T BILI Normal 0.00-1.30 [facility] Comment on above: Result Comment: Canc elled via OM: Order cancelled - Patient discharged Performed By: #### L 100.0100, L500.4050 ####[facility] [address] [place], [address] T PROT Normal 5.9-8.4 [facility] Comment on above: Result Comment: Canc elled via OM: Order cancelled - Patient discharged Performed By: #### L 100.0100, L500.4050 ####[facility] [address] [place], [address] Comprehensive Metabolic Profil Normal 133-145 [facility] Comment on above: Result Comment: Canc elled via OM: Order cancelled - Patient discharged Performed By: #### L 100.0100, L500.4050 ####[facility] [address] [place], [address] CBC W/Diff, Automatedon 06- Absolute Neut Normal 2.0-7.7 [facility] Comment on above: Result Comment: Canc elled via OM: Order cancelled - Patient discharged Performed By: #### L 100.0100, L500.4050 ####[facility] [address] [place], [address] HCT Normal 37-47 [facility] Comment on above: Result Comment: Canc elled via OM: Order cancelled - Patient discharged Performed By: #### L 100.0100, L500.4050 ####[facility] [address] [place], [address] HGB Normal 12.0-15.0 [facility] Comment on above: Result Comment: Canc elled via OM: Order cancelled - Patient discharged Performed By: #### L 100.0100, L500.4050 ####[facility] [address] [place], [address] MCH Normal 27.0-32.0 [facility] Comment on above: Result Comment: Canc elled via OM: Order cancelled - Patient discharged Performed By: #### L 100.0100, L500.4050 ####[facility] [address] [place], [address] MCHC Normal 32-36 [facility] Comment on above: Result Comment: Canc elled via OM: Order cancelled - Patient discharged Performed By: #### L 100.0100, L500.4050 ####[facility] [address] [place], [address] MCV Normal 81-99 [facility] Comment on above: Result Comment: Canc elled via OM: Order cancelled - Patient discharged Performed By: #### L 100.0100, L500.4050 ####[facility] [address] [place], [address] NEUT% Normal 47-70 [facility] Comment on above: Result Comment: Canc elled via OM: Order cancelled - Patient discharged Performed By: #### L 100.0100, L500.4050 ####[facility] [address] [place], [address] PLT Normal 150-450 [facility] Comment on above: Result Comment: Canc elled via OM: Order cancelled - Patient discharged Performed By: #### L 100.0100, L500.4050 ####[facility] [address] [place], [address] RBC Normal 4.2-5.4 [facility] Comment on above: Result Comment: Canc elled via OM: Order cancelled - Patient discharged Performed By: #### L 100.0100, L500.4050 ####[facility] [address] [place], [address] RDW CV Normal 11.6-14.6 [facility] Comment on above: Result Comment: Canc elled via OM: Order cancelled - Patient discharged Performed By: #### L 100.0100, L500.4050 ####[facility] [address] [place], [address] RDW SD Normal 35.1-43.9 [facility] Comment on above: Result Comment: Canc elled via OM: Order cancelled - Patient discharged Performed By: #### L 100.0100, L500.4050 ####[facility] [address] [place], [address] WBC Normal 4.4-11.0 [facility] Comment on above: Result Comment: Canc elled via OM: Order cancelled - Patient discharged Performed By: #### L 100.0100, L500.4050 ####[facility] [address] [place], [address] Comprehensive Metabolic Prof ilon 08-25-2024 ALB Normal 3.5-5.0 [facility] Comment on above: Result Comment: Canc elled via OM: Order cancelled - Patient discharged Performed By: #### L 100.0100, L500.4050 ####[facility] [address] [place], [address] ALK PHOS Normal 35-104 [facility] Comment on above: Result Comment: Canc elled via OM: Order cancelled - Patient discharged Performed By: #### L 100.0100, L500.4050 ####[facility] [address] [place], [address] ALT Normal <=34 [facility] Comment on above: Result Comment: Canc elled via OM: Order cancelled - Patient discharged Performed By: #### L 100.0100, L500.4050 ####[facility] [address] [place], [address] AST Normal <=31 [facility] Comment on above: Result Comment: Canc elled via OM: Order cancelled - Patient discharged Performed By: #### L 100.0100, L500.4050 ####[facility] [address] [place], [address] BUN Normal 4-19 [facility] Comment on above: Result Comment: Canc elled via OM: Order cancelled - Patient discharged Performed By: #### L 100.0100, L500.4050 ####[facility] [address] [place], [address] BUN/CRE Normal 10-20 [facility] Comment on above: Result Comment: Canc elled via OM: Order cancelled - Patient discharged Performed By: #### L 100.0100, L500.4050 ####[facility] [address] [place], [address] Calcium Normal 7.6-11.0 [facility] Comment on above: Result Comment: Canc elled via OM: Order cancelled - Patient discharged Performed By: #### L 100.0100, L500.4050 ####[facility] [address] [place], [address] CL Normal 98-108 [facility] Comment on above: Result Comment: Canc elled via OM: Order cancelled - Patient discharged Performed By: #### L 100.0100, L500.4050 ####[facility] [address] [place], [address] CO2 Normal 21.0-32.0 [facility] Comment on above: Result Comment: Canc elled via OM: Order cancelled - Patient discharged Performed By: #### L 100.0100, L500.4050 ####[facility] [address] [place], [address] CREAT,SERUM Normal 0.70-1.20 [facility] Comment on above: Result Comment: Canc elled via OM: Order cancelled - Patient discharged Performed By: #### L 100.0100, L500.4050 ####[facility] [address] [place], [address] eGFR Normal >60 [facility] Comment on above: Result Comment: Canc elled via OM: Order cancelled - Patient discharged Performed By: #### L 100.0100, L500.4050 ####[facility] [address] [place], [address] GAP Normal 5-15 [facility] Comment on above: Result Comment: Canc elled via OM: Order cancelled - Patient discharged Performed By: #### L 100.0100, L500.4050 ####[facility] [address] [place], [address] GLU Normal 70-99 [facility] Comment on above: Result Comment: Canc elled via OM: Order cancelled - Patient discharged Performed By: #### L 100.0100, L500.4050 ####[facility] [address] [place], [address] Potassium Normal 3.3-5.1 [facility] Comment on above: Result Comment: Canc elled via OM: Order cancelled - Patient discharged Performed By: #### L 100.0100, L500.4050 ####[facility] [address] [place], [address] T BILI Normal 0.00-1.30 [facility] Comment on above: Result Comment: Canc elled via OM: Order cancelled - Patient discharged Performed By: #### L 100.0100, L500.4050 ####[facility] [address] [place], [address] T PROT Normal 5.9-8.4 [facility] Comment on above: Result Comment: Canc elled via OM: Order cancelled - Patient discharged Performed By: #### L 100.0100, L500.4050 ####[facility] [address] [place], [address] Comprehensive Metabolic Profil Normal 133-145 [facility] Comment on above: Result Comment: Canc elled via OM: Order cancelled - Patient discharged Performed By: #### L 100.0100, L500.4050 ####[facility] [address] [place], [address] Absolute lymphocyte countOrd ered By: Taylor Tejeda on 08-24-2024 Lymphocytes Auto (Unsp spec) [#/Vol] 1.18 10*3/uL 0.83-4.51 [facility] Anion gap in Serum or Plasma Ordered By: Taylor Ileana on 08-24-2024 Anion gap [Moles/Vol] 12 mmol/L 5-15 [facility] Automated lymphocyte count a s percentage of total leukocytesOrdered By: Taylor Ileana on 08-24-2024 Lymphocytes/100 WBC Auto (Unsp spec) 14.1 % Low 19-41 [facility] BUN/creatinine ratioOrdered By: Taylorleonides Tejeda on 08-24-2024 Urea nitrogen/Creatinine [Mass ratio] 10.5 mg/mg 10-20 [facility] Basophil percentageOrdered B y: Taylor Ielana on 08-24-2024 Basophils/100 WBC (Bld) 0.5 % 0-1 [facility] Bilirubin, totalOrdered By: Taylorleonides Tejeda on 08-24-2024 Bilirubin [Mass/Vol] 0.32 mg/dL 0.00-1.30 [facility] CBC W/Diff, Automatedon 08-12 Absolute Lymph 1.18 X10 3/uL Normal 0.83-4.51 [facility] Comment on above: Performed By: #### L 500.4050, L100.0100 ####[facility] [address] [place], [address] Absolute Neut 6.4 X10 3/uL Normal 2.0-7.7 [facility] Comment on above: Performed By: #### L 500.4050, L100.0100 ####[facility] [address] [place], [address] Basophils/100 WBC (Bld) 0.5 % Normal 0-1 [facility] Comment on above: Performed By: #### L 500.4050, L100.0100 ####[facility] [address] [place], [address] Eosinophils/100 WBC (Bld) 2.2 % Normal 0-5 [facility] Comment on above: Performed By: #### L 500.4050, L100.0100 ####[facility] [address] [place], [address] Erythrocyte distribution width (RBC) [Ratio] 14.0 % Normal 11.6-14.6 [facility] Comment on above: Performed By: #### L 500.4050, L100.0100 ####[facility] [address] [place], [address] Hematocrit (Bld) [Volume fraction] 36.5 % Low 37-47 [facility] Comment on above: Performed By: #### L 500.4050, L100.0100 ####[facility] [address] [place], [address] Hemoglobin (Bld) [Mass/Vol] 12.0 g/dL Normal 12.0-15.0 [facility] Comment on above: Performed By: #### L 500.4050, L100.0100 ####[facility] [address] [place], [address] IG% 0.600 Normal 0.0-0.9 [facility] Comment on above: Result Comment: IG% - Immature Granulocytes (promyelocytes, myelocytes andmetamyelocytes) > 1% indicates that a LEFT SHIFT is Present. Performed By: #### L 500.4050, L100.0100 ####[facility] [address] [place], [address] Lymphocytes/100 WBC (Bld) 14.1 % Low 19-41 [facility] Comment on above: Performed By: #### L 500.4050, L100.0100 ####[facility] [address] [place], [address] MCH (RBC) [Entitic mass] 31.6 pg Normal 27.0-32.0 [facility] Comment on above: Performed By: #### L 500.4050, L100.0100 ####[facility] [address] [place], [address] MCHC (RBC) [Mass/Vol] 32.9 g/dL Normal 32-36 [facility] Comment on above: Performed By: #### L 500.4050, L100.0100 ####[facility] [address] [place], [address] MCV (RBC) [Entitic vol] 96.1 fL Normal 81-99 [facility] Comment on above: Performed By: #### L 500.4050, L100.0100 ####[facility] [address] [place], [address] Monocytes/100 WBC (Bld) 6.6 % Normal 0-10 [facility] Comment on above: Performed By: #### L 500.4050, L100.0100 ####[facility] [address] [place], [address] Neutrophils/100 WBC (Bld) 76.0 % High 47-70 [facility] Comment on above: Performed By: #### L 500.4050, L100.0100 ####[facility] [address] [place], [address] Nucleated RBC (Bld) [#/Vol] 0 10*3/uL Normal 0-5 [facility] Comment on above: Performed By: #### L 500.4050, L100.0100 ####[facility] [address] [place], [address] Platelet mean volume (Bld) [Entitic vol] 10.1 fL Normal 6.2-12.0 [facility] Comment on above: Performed By: #### L 500.4050, L100.0100 ####[facility] [address] [place], [address] Platelets (Bld) [#/Vol] 246 10*3/uL Normal 150-450 [facility] Comment on above: Performed By: #### L 500.4050, L100.0100 ####[facility] [address] [place], [address] RBC (Bld) [#/Vol] 3.80 10*6/uL Low 4.2-5.4 [facility] Comment on above: Performed By: #### L 500.4050, L100.0100 ####[facility] [address] [place], [address] RDW SD 48.5 fl High 35.1-43.9 [facility] Comment on above: Performed By: #### L 500.4050, L100.0100 ####[facility] [address] [place], [address] WBC (Bld) [#/Vol] 8.4 10*3/uL Normal 4.4-11.0 [facility] Comment on above: Performed By: #### L 500.4050, L100.0100 ####[facility] [address] [place], [address] Carbon dioxide, total [Moles /volume] in Central venous bloodOrdered By: Taylor Tejeda on 08-24-2024 CO2 [Moles/Vol] 21.5 mmol/L 21.0-32.0 [facility] Chloride assayOrdered By: Soledad Tejeda on 08-24-2024 Chloride [Moles/Vol] 104 mmol/L 98-108 [facility] Comprehensive Metabolic Prof ilon 08-24-2024 Albumin [Mass/Vol] 3.5 g/dL Normal 3.5-5.0 [facility] Comment on above: Performed By: #### L 500.4050, L100.0100 ####[facility] [address] [place], [address] Albumin/Globulin [Mass ratio] 1.4 {ratio} Normal 0.9-2.4 [facility] Comment on above: Performed By: #### L 500.4050, L100.0100 ####[facility] [address] [place], [address] ALK PHOS 163 U/L High 35-104 [facility] Comment on above: Performed By: #### L 500.4050, L100.0100 ####[facility] [address] [place], [address] ALT [Catalytic activity/Vol] 184 U/L High <=34 [facility] Comment on above: Performed By: #### L 500.4050, L100.0100 ####[facility] [address] [place], [address] AST [Catalytic activity/Vol] 54 U/L High <=31 [facility] Comment on above: Performed By: #### L 500.4050, L100.0100 ####[facility] [address] [place], [address] Bilirubin [Mass/Vol] 0.32 mg/dL Normal 0.00-1.30 [facility] Comment on above: Performed By: #### L 500.4050, L100.0100 ####[facility] [address] [place], [address] BUN/CRE 10.5 RATIO Normal 10-20 [facility] Comment on above: Performed By: #### L 500.4050, L100.0100 ####[facility] [address] [place], [address] Calcium [Mass/Vol] 8.8 mg/dL Normal 7.6-11.0 [facility] Comment on above: Performed By: #### L 500.4050, L100.0100 ####[facility] [address] [place], [address] Chloride [Moles/Vol] 104 mmol/L Normal 98-108 [facility] Comment on above: Performed By: #### L 500.4050, L100.0100 ####[facility] [address] [place], [address] CO2 [Moles/Vol] 21.5 mmol/L Normal 21.0-32.0 [facility] Comment on above: Performed By: #### L 500.4050, L100.0100 ####[facility] [address] [place], [address] Creatinine [Mass/Vol] 1.02 mg/dL Normal 0.70-1.20 [facility] Comment on above: Performed By: #### L 500.4050, L100.0100 ####[facility] [address] [place], [address] ECRCL 60.78 ml/min Normal 50-250 [facility] Comment on above: Performed By: #### L 500.4050, L100.0100 ####[facility] [address] [place], [address] GAP 12 Normal 5-15 [facility] Comment on above: Performed By: #### L 500.4050, L100.0100 ####[facility] [address] [place], [address] GFR/1.73 sq M.predicted among non-blacks MDRD (S/P/Bld) [Vol rate/Area] 70 mL/min/{1.73_m2} Normal >60 [facility] Comment on above: Result Comment: mL/m in/1.73m2 CKD-EPI Creatinine Equation (2020) Performed By: #### L 500.4050, L100.0100 ####[facility] [address] [place], [address] Globulin (S) [Mass/Vol] 2.5 g/dL Normal 2.2-4.2 [facility] Comment on above: Performed By: #### L 500.4050, L100.0100 ####[facility] [address] [place], [address] Glucose [Mass/Vol] 126 mg/dL High 70-99 [facility] Comment on above: Performed By: #### L 500.4050, L100.0100 ####[facility] [address] [place], [address] Potassium [Moles/Vol] 4.2 mmol/L Normal 3.3-5.1 [facility] Comment on above: Performed By: #### L 500.4050, L100.0100 ####[facility] [address] [place], [address] Sodium [Moles/Vol] 137 mmol/L Normal 133-145 [facility] Comment on above: Performed By: #### L 500.4050, L100.0100 ####[facility] [address] [place], [address] T PROT 6.0 g/dL Normal 5.9-8.4 [facility] Comment on above: Performed By: #### L 500.4050, L100.0100 ####[facility] [address] [place], [address] Urea nitrogen [Mass/Vol] 11 mg/dL Normal 4-19 [facility] Comment on above: Performed By: #### L 500.4050, L100.0100 ####[facility] [address] [place], [address] Discharge Instructionon 08-12 Discharge Instruction Normal [facility] Eosinophil percentageOrdered By: Taylor Tejeda on 08-24-2024 Eosinophils/100 WBC (Bld) 2.2 % 0-5 [facility] Erythrocyte distribution wid th ratioOrdered By: Taylor Tejeda on 08-24-2024 Erythrocyte distribution width (RBC) [Ratio] 14.0 % 11.6-14.6 [facility] Erythrocyte distribution wid th standard deviationOrdered By: Taylor Tejeda on 08-24-2024 Erythrocyte distribution width (RBC) [Ratio] 48.5 fl High 35.1-43.9 [facility] Glomerular filtration rate ( GFR) estimation/1.73 sq m using serum, plasma, or whole bOrdered By: Taylor Tejeda on 08-24-2024 GFR/1.73 sq M.predicted among non-blacks MDRD (S/P/Bld) [Vol rate/Area] 70 mL/min/{1.73_m2} >60 [facility] Hematocrit Auto (Bld) [Volum e fraction]Ordered By: Taylor Tejeda on 08-24-2024 Hematocrit (Bld) [Volume fraction] 36.5 % Low 37-47 [facility] Hemoglobin measurementOrdere d By: Taylor Tejeda on 08-24-2024 Hemoglobin (Bld) [Mass/Vol] 12.0 g/dL 12.0-15.0 [facility] Immature granulocytes/100 WB C Auto (Bld)Ordered By: Taylor Tejeda 08-24-2024 Immature granulocytes/100 WBC (Bld) 0.600 % 0.0-0.9 [facility] MCV (mean corpuscular volume ) determinationOrdered By: Taylor Tejeda 08-24-2024 MCV (RBC) [Entitic vol] 96.1 fL 81-99 [facility] Mean corpuscular hemoglobin (MCH) determinationOrdered By: Taylor Tejeda 08-24-2024 MCH (RBC) [Entitic mass] 31.6 pg 27.0-32.0 [facility] Monocyte percentageOrdered B y: Taylor Tejeda on 08-24-2024 Monocytes/100 WBC (Bld) 6.6 % 0-10 [facility] Neutrophil percentageOrdered By: Taylor Tejeda on 08-24-2024 Neutrophils/100 WBC (Bld) 76.0 % High 47-70 [facility] No Panel InformationOrdered By: Taylor Tejeda on 08-24-2024 54 U/L High <32 [facility] Platelet countOrdered By: Soledad Tejeda on 08-24-2024 Platelets (Bld) [#/Vol] 246 10*3/uL 150-450 [facility] Potassium measurement (mass/ volume)Ordered By: Taylor Tejeda on 08-24-2024 Potassium (Unsp spec) [Mass/Vol] 4.2 mmol/L 3.3-5.1 [facility] RBC Auto (Bld) [#/Vol]Ordere d By: Taylor Tejeda on 08-24-2024 RBC (Bld) [#/Vol] 3.80 10*6/uL Low 4.2-5.4 [facility] Serum creatinine measurement (mass/volume)Ordered By: Taylor Tejeda on 08-24-2024 Creatinine [Mass/Vol] 1.02 mg/dL 0.70-1.20 [facility] Serum globulin measurementOr dered By: Taylor Tejeda on 08-24-2024 Globulin (S) [Mass/Vol] 2.5 g/dL 2.2-4.2 [facility] Serum glucose measurement (m ass/volume)Ordered By: Taylor Tejeda on 08-24-2024 Glucose [Mass/Vol] 126 mg/dL High 70-99 [facility] Serum or plasma alanine hair otransferase (ALT) measurementOrdered By: Taylor Tejeda 08-24-2024 ALT [Catalytic activity/Vol] 184 U/L High <35 [facility] Serum or plasma albumin leslie urement (mass/volume)Ordered By: Taylor Tejeda 08-24-2024 Albumin [Mass/Vol] 3.5 g/dL 3.5-5.0 [facility] Serum or plasma albumin/glob ulin mass ratioOrdered By: Taylor Tejeda 08-24-2024 Albumin/Globulin [Mass ratio] 1.4 {ratio} 0.9-2.4 [facility] Serum or plasma alkaline delfin sphatase measurementOrdered By: Taylor Tejeda 08-24-2024 ALP [Catalytic activity/Vol] 163 U/L High 35-104 [facility] Serum or plasma calcium leslie urement (mass/volume)Ordered By: Taylor Tejeda 08-24-2024 Calcium [Mass/Vol] 8.8 mg/dL 7.6-11.0 [facility] Serum or plasma urea nitroge n measurement (mass/volume)Ordered By: Taylor Poemelly on 08-24-2024 Urea nitrogen [Mass/Vol] 11 mg/dL 4-19 [facility] Sodium levelOrdered By: Taylor Poemelly on 08-24-2024 Sodium [Moles/Vol] 137 mmol/L 133-145 [facility] Total proteinOrdered By: Laquita Tejeda on 08-24-2024 Protein [Mass/Vol] 6.0 g/dL 5.9-8.4 [facility] White blood cell (WBC) count Ordered By: Taylor Poemelly on 08-24-2024 WBC (Bld) [#/Vol] 8.4 10*3/uL 4.4-11.0 [facility] Abdomen/Pelvis W IV Cont ONL Yon 08-23-2024 Abdomen/Pelvis W IV Cont ONLY Normal [facility] Abdomen/Pelvis without Conto n 08-23-2024 Abdomen/Pelvis without Cont Normal [facility] CBC W/Diff, Automatedon 08-12 Absolute Lymph 1.35 X10 3/uL Normal 0.83-4.51 [facility] Comment on above: Performed By: #### L 500.4050, L100.0100 ####[facility] [address] [place], [address] Absolute Neut 10.2 X10 3/uL High 2.0-7.7 [facility] Comment on above: Performed By: #### L 500.4050, L100.0100 ####[facility] [address] [place], [address] Basophils/100 WBC (Bld) 0.3 % Normal 0-1 [facility] Comment on above: Performed By: #### L 500.4050, L100.0100 ####[facility] [address] [place], [address] Eosinophils/100 WBC (Bld) 1.0 % Normal 0-5 [facility] Comment on above: Performed By: #### L 500.4050, L100.0100 ####[facility] [address] [place], [address] Erythrocyte distribution width (RBC) [Ratio] 13.5 % Normal 11.6-14.6 [facility] Comment on above: Performed By: #### L 500.4050, L100.0100 ####[facility] [address] [place], [address] Hematocrit (Bld) [Volume fraction] 38.3 % Normal 37-47 [facility] Comment on above: Performed By: #### L 500.4050, L100.0100 ####[facility] [address] [place], [address] Hemoglobin (Bld) [Mass/Vol] 12.7 g/dL Normal 12.0-15.0 [facility] Comment on above: Performed By: #### L 500.4050, L100.0100 ####[facility] [address] [place], [address] IG% 0.500 Normal 0.0-0.9 [facility] Comment on above: Result Comment: IG% - Immature Granulocytes (promyelocytes, myelocytes andmetamyelocytes) > 1% indicates that a LEFT SHIFT is Present. Performed By: #### L 500.4050, L100.0100 ####[facility] [address] [place], [address] Lymphocytes/100 WBC (Bld) 10.7 % Low 19-41 [facility] Comment on above: Performed By: #### L 500.4050, L100.0100 ####[facility] [address] [place], [address] MCH (RBC) [Entitic mass] 31.5 pg Normal 27.0-32.0 [facility] Comment on above: Performed By: #### L 500.4050, L100.0100 ####[facility] [address] [place], [address] MCHC (RBC) [Mass/Vol] 33.2 g/dL Normal 32-36 [facility] Comment on above: Performed By: #### L 500.4050, L100.0100 ####[facility] [address] [place], [address] MCV (RBC) [Entitic vol] 95.0 fL Normal 81-99 [facility] Comment on above: Performed By: #### L 500.4050, L100.0100 ####[facility] [address] [place], [address] Monocytes/100 WBC (Bld) 7.0 % Normal 0-10 [facility] Comment on above: Performed By: #### L 500.4050, L100.0100 ####[facility] [address] [place], [address] Neutrophils/100 WBC (Bld) 80.5 % High 47-70 [facility] Comment on above: Performed By: #### L 500.4050, L100.0100 ####[facility] [address] [place], [address] Nucleated RBC (Bld) [#/Vol] 0 10*3/uL Normal 0-5 [facility] Comment on above: Performed By: #### L 500.4050, L100.0100 ####[facility] [address] [place], [address] Platelet mean volume (Bld) [Entitic vol] 10.4 fL Normal 6.2-12.0 [facility] Comment on above: Performed By: #### L 500.4050, L100.0100 ####[facility] [address] [place], [address] Platelets (Bld) [#/Vol] 274 10*3/uL Normal 150-450 [facility] Comment on above: Performed By: #### L 500.4050, L100.0100 ####[facility] [address] [place], [address] RBC (Bld) [#/Vol] 4.03 10*6/uL Low 4.2-5.4 [facility] Comment on above: Performed By: #### L 500.4050, L100.0100 ####[facility] [address] [place], [address] RDW SD 46.5 fl High 35.1-43.9 [facility] Comment on above: Performed By: #### L 500.4050, L100.0100 ####[facility] [address] [place], [address] WBC (Bld) [#/Vol] 12.7 10*3/uL High 4.4-11.0 [facility] Comment on above: Performed By: #### L 500.4050, L100.0100 ####[facility] [address] [place], [address] Comprehensive Metabolic Prof [facility] 08-23-2024 Albumin [Mass/Vol] 4.0 g/dL Normal 3.5-5.0 [facility] Comment on above: Performed By: #### L 500.4050, L100.0100 ####[facility] [address] [place], [address] Albumin/Globulin [Mass ratio] 1.3 {ratio} Normal 0.9-2.4 [facility] Comment on above: Performed By: #### L 500.4050, L100.0100 ####[facility] [address] [place], [address] ALK PHOS 188 U/L High 35-104 [facility] Comment on above: Performed By: #### L 500.4050, L100.0100 ####[facility] [address] [place], [address] ALT [Catalytic activity/Vol] 277 U/L High <=34 [facility] Comment on above: Performed By: #### L 500.4050, L100.0100 ####[facility] [address] [place], [address] AST [Catalytic activity/Vol] 115 U/L High <=31 [facility] Comment on above: Performed By: #### L 500.4050, L100.0100 ####[facility] [address] [place], [address] Bilirubin [Mass/Vol] 0.59 mg/dL Normal 0.00-1.30 [facility] Comment on above: Performed By: #### L 500.4050, L100.0100 ####[facility] [address] [place], [address] BUN/CRE 9.0 RATIO Low 10-20 [facility] Comment on above: Performed By: #### L 500.4050, L100.0100 ####[facility] [address] [place], [address] Calcium [Mass/Vol] 9.1 mg/dL Normal 7.6-11.0 [facility] Comment on above: Performed By: #### L 500.4050, L100.0100 ####[facility] [address] [place], [address] Chloride [Moles/Vol] 100 mmol/L Normal 98-108 [facility] Comment on above: Performed By: #### L 500.4050, L100.0100 ####[facility] [address] [place], [address] CO2 [Moles/Vol] 23.1 mmol/L Normal 21.0-32.0 [facility] Comment on above: Performed By: #### L 500.4050, L100.0100 ####[facility] [address] [place], [address] Creatinine [Mass/Vol] 0.75 mg/dL Normal 0.70-1.20 [facility] Comment on above: Performed By: #### L 500.4050, L100.0100 ####[facility] [address] [place], [address] ECRCL 82.66 ml/min Normal 50-250 [facility] Comment on above: Performed By: #### L 500.4050, L100.0100 ####[facility] [address] [place], [address] GAP 12 Normal 5-15 [facility] Comment on above: Performed By: #### L 500.4050, L100.0100 ####[facility] [address] [place], [address] GFR/1.73 sq M.predicted among non-blacks MDRD (S/P/Bld) [Vol rate/Area] 100 mL/min/{1.73_m2} Normal >60 [facility] Comment on above: Result Comment: mL/m in/1.73m2 CKD-EPI Creatinine Equation (2020) Performed By: #### L 500.4050, L100.0100 ####[facility] [address] [place], [address] Globulin (S) [Mass/Vol] 3.0 g/dL Normal 2.2-4.2 [facility] Comment on above: Performed By: #### L 500.4050, L100.0100 ####[facility] [address] [place], [address] Glucose [Mass/Vol] 104 mg/dL High 70-99 [facility] Comment on above: Performed By: #### L 500.4050, L100.0100 ####[facility] [address] [place], [address] Potassium [Moles/Vol] 4.2 mmol/L Normal 3.3-5.1 [facility] Comment on above: Performed By: #### L 500.4050, L100.0100 ####[facility] [address] [place], [address] Sodium [Moles/Vol] 135 mmol/L Normal 133-145 [facility] Comment on above: Performed By: #### L 500.4050, L100.0100 ####[facility] [address] [place], [address] T PROT 7.0 g/dL Normal 5.9-8.4 [facility] Comment on above: Performed By: #### L 500.4050, L100.0100 ####[facility] [address] [place], [address] Urea nitrogen [Mass/Vol] 7 mg/dL Normal 4-19 [facility] Comment on above: Performed By: #### L 500.4050, L100.0100 ####[facility] [address] [place], [address] CBC W/Diff, Automatedon 08-12 Absolute Lymph 1.39 X10 3/uL Normal 0.83-4.51 [facility] Comment on above: Performed By: #### L 500.4050, L100.0100 ####[facility] [address] [place], [address] Absolute Neut 8.6 X10 3/uL High 2.0-7.7 [facility] Comment on above: Performed By: #### L 500.4050, L100.0100 ####[facility] [address] [place], [address] Basophils/100 WBC (Bld) 0.5 % Normal 0-1 [facility] Comment on above: Performed By: #### L 500.4050, L100.0100 ####[facility] [address] [place], [address] Eosinophils/100 WBC (Bld) 0.8 % Normal 0-5 [facility] Comment on above: Performed By: #### L 500.4050, L100.0100 ####[facility] [address] [place], [address] Erythrocyte distribution width (RBC) [Ratio] 13.8 % Normal 11.6-14.6 [facility] Comment on above: Performed By: #### L 500.4050, L100.0100 ####[facility] [address] [place], [address] Hematocrit (Bld) [Volume fraction] 39.3 % Normal 37-47 [facility] Comment on above: Performed By: #### L 500.4050, L100.0100 ####[facility] [address] [place], [address] Hemoglobin (Bld) [Mass/Vol] 12.9 g/dL Normal 12.0-15.0 [facility] Comment on above: Performed By: #### L 500.4050, L100.0100 ####[facility] [address] [place], [address] IG% 0.500 Normal 0.0-0.9 [facility] Comment on above: Result Comment: IG% - Immature Granulocytes (promyelocytes, myelocytes andmetamyelocytes) > 1% indicates that a LEFT SHIFT is Present. Performed By: #### L 500.4050, L100.0100 ####[facility] [address] [place], [address] Lymphocytes/100 WBC (Bld) 12.5 % Low 19-41 [facility] Comment on above: Performed By: #### L 500.4050, L100.0100 ####[facility] [address] [place], [address] MCH (RBC) [Entitic mass] 31.3 pg Normal 27.0-32.0 [facility] Comment on above: Performed By: #### L 500.4050, L100.0100 ####[facility] [address] [place], [address] MCHC (RBC) [Mass/Vol] 32.8 g/dL Normal 32-36 [facility] Comment on above: Performed By: #### L 500.4050, L100.0100 ####[facility] [address] [place], [address] MCV (RBC) [Entitic vol] 95.4 fL Normal 81-99 [facility] Comment on above: Performed By: #### L 500.4050, L100.0100 ####[facility] [address] [place], [address] Monocytes/100 WBC (Bld) 8.0 % Normal 0-10 [facility] Comment on above: Performed By: #### L 500.4050, L100.0100 ####[facility] [address] [place], [address] Neutrophils/100 WBC (Bld) 77.7 % High 47-70 [facility] Comment on above: Performed By: #### L 500.4050, L100.0100 ####[facility] [address] [place], [address] Nucleated RBC (Bld) [#/Vol] 0 10*3/uL Normal 0-5 [facility] Comment on above: Performed By: #### L 500.4050, L100.0100 ####[facility] [address] [place], [address] Platelet mean volume (Bld) [Entitic vol] 10.0 fL Normal 6.2-12.0 [facility] Comment on above: Performed By: #### L 500.4050, L100.0100 ####[facility] [address] [place], [address] Platelets (Bld) [#/Vol] 291 10*3/uL Normal 150-450 [facility] Comment on above: Performed By: #### L 500.4050, L100.0100 ####[facility] [address] [place], [address] RBC (Bld) [#/Vol] 4.12 10*6/uL Low 4.2-5.4 [facility] Comment on above: Performed By: #### L 500.4050, L100.0100 ####[facility] [address] [place], [address] RDW SD 48.1 fl High 35.1-43.9 [facility] Comment on above: Performed By: #### L 500.4050, L100.0100 ####[facility] [address] [place], [address] WBC (Bld) [#/Vol] 11.1 10*3/uL High 4.4-11.0 [facility] Comment on above: Performed By: #### L 500.4050, L100.0100 ####[facility] [address] [place], [address] Comprehensive Metabolic Prof [facility] 08-22-2024 Albumin [Mass/Vol] 4.0 g/dL Normal 3.5-5.0 [facility] Comment on above: Performed By: #### L 500.4050, L100.0100 ####[facility] [address] [place], [address] Albumin/Globulin [Mass ratio] 1.4 {ratio} Normal 0.9-2.4 [facility] Comment on above: Performed By: #### L 500.4050, L100.0100 ####[facility] [address] [place], [address] ALK PHOS 199 U/L High 35-104 [facility] Comment on above: Performed By: #### L 500.4050, L100.0100 ####[facility] [address] [place], [address] ALT [Catalytic activity/Vol] 368 U/L High <=34 [facility] Comment on above: Performed By: #### L 500.4050, L100.0100 ####[facility] [address] [place], [address] AST [Catalytic activity/Vol] 284 U/L High <=31 [facility] Comment on above: Performed By: #### L 500.4050, L100.0100 ####[facility] [address] [place], [address] Bilirubin [Mass/Vol] 0.89 mg/dL Normal 0.00-1.30 [facility] Comment on above: Performed By: #### L 500.4050, L100.0100 ####[facility] [address] [place], [address] BUN/CRE 12.0 RATIO Normal 10-20 [facility] Comment on above: Performed By: #### L 500.4050, L100.0100 ####[facility] [address] [place], [address] Calcium [Mass/Vol] 9.5 mg/dL Normal 7.6-11.0 [facility] Comment on above: Performed By: #### L 500.4050, L100.0100 ####[facility] [address] [place], [address] Chloride [Moles/Vol] 101 mmol/L Normal 98-108 [facility] Comment on above: Performed By: #### L 500.4050, L100.0100 ####[facility] [address] [place], [address] CO2 [Moles/Vol] 22.1 mmol/L Normal 21.0-32.0 [facility] Comment on above: Performed By: #### L 500.4050, L100.0100 ####[facility] [address] [place], [address] Creatinine [Mass/Vol] 0.98 mg/dL Normal 0.70-1.20 [facility] Comment on above: Performed By: #### L 500.4050, L100.0100 ####[facility] [address] [place], [address] ECRCL 63.26 ml/min Normal 50-250 [facility] Comment on above: Performed By: #### L 500.4050, L100.0100 ####[facility] [address] [place], [address] GAP 12 Normal 5-15 [facility] Comment on above: Performed By: #### L 500.4050, L100.0100 ####[facility] [address] [place], [address] GFR/1.73 sq M.predicted among non-blacks MDRD (S/P/Bld) [Vol rate/Area] 73 mL/min/{1.73_m2} Normal >60 [facility] Comment on above: Result Comment: mL/m in/1.73m2 CKD-EPI Creatinine Equation (2020) Performed By: #### L 500.4050, L100.0100 ####[facility] [address] [place], [address] Globulin (S) [Mass/Vol] 2.8 g/dL Normal 2.2-4.2 [facility] Comment on above: Performed By: #### L 500.4050, L100.0100 ####[facility] [address] [place], [address] Glucose [Mass/Vol] 96 mg/dL Normal 70-99 [facility] Comment on above: Performed By: #### L 500.4050, L100.0100 ####[facility] [address] [place], [address] Potassium [Moles/Vol] 4.1 mmol/L Normal 3.3-5.1 [facility] Comment on above: Performed By: #### L 500.4050, L100.0100 ####[facility] [address] [place], [address] Sodium [Moles/Vol] 135 mmol/L Normal 133-145 [facility] Comment on above: Performed By: #### L 500.4050, L100.0100 ####[facility] [address] [place], [address] T PROT 6.9 g/dL Normal 5.9-8.4 [facility] Comment on above: Performed By: #### L 500.4050, L100.0100 ####[facility] [address] [place], [address] Urea nitrogen [Mass/Vol] 12 mg/dL Normal 4-19 [facility] Comment on above: Performed By: #### L 500.4050, L100.0100 ####[facility] [address] [place], [address] MR/EXMKKCLE0gm 08-22-2024 MR/POSTOPAN2 Normal [facility] CBC-Complete Blood Cnt No Di ffon 08-21-2024 Erythrocyte distribution width (RBC) [Ratio] 13.7 % Normal 11.6-14.6 [facility] Comment on above: Performed By: #### L 100.0500, L500.4050 ####[facility] [address] [place], [address] Hematocrit (Bld) [Volume fraction] 39.1 % Normal 37-47 [facility] Comment on above: Performed By: #### L 100.0500, L500.4050 ####[facility] [address] [place], [address] Hemoglobin (Bld) [Mass/Vol] 12.6 g/dL Normal 12.0-15.0 [facility] Comment on above: Performed By: #### L 100.0500, L500.4050 ####[facility] [address] [place], [address] MCH (RBC) [Entitic mass] 31.2 pg Normal 27.0-32.0 [facility] Comment on above: Performed By: #### L 100.0500, L500.4050 ####[facility] [address] [place], [address] MCHC (RBC) [Mass/Vol] 32.2 g/dL Normal 32-36 [facility] Comment on above: Performed By: #### L 100.0500, L500.4050 ####[facility] [address] [place], [address] MCV (RBC) [Entitic vol] 96.8 fL Normal 81-99 [facility] Comment on above: Performed By: #### L 100.0500, L500.4050 ####[facility] [address] [place], [address] Platelet mean volume (Bld) [Entitic vol] 10.4 fL Normal 6.2-12.0 [facility] Comment on above: Performed By: #### L 100.0500, L500.4050 ####[facility] [address] [place], [address] Platelets (Bld) [#/Vol] 402 10*3/uL Normal 150-450 [facility] Comment on above: Performed By: #### L 100.0500, L500.4050 ####[facility] [address] [place], [address] RBC (Bld) [#/Vol] 4.04 10*6/uL Low 4.2-5.4 [facility] Comment on above: Performed By: #### L 100.0500, L500.4050 ####[facility] [address] [place], [address] RDW SD 48.3 fl High 35.1-43.9 [facility] Comment on above: Performed By: #### L 100.0500, L500.4050 ####[facility] [address] [place], [address] WBC (Bld) [#/Vol] 10.5 10*3/uL Normal 4.4-11.0 [facility] Comment on above: Performed By: #### L 100.0500, L500.4050 ####[facility] [address] [place], [address] Comprehensive Metabolic Prof [facility] 08-21-2024 Albumin [Mass/Vol] 4.2 g/dL Normal 3.5-5.0 [facility] Comment on above: Performed By: #### L 100.0500, L500.4050 ####[facility] [address] [place], [address] Albumin/Globulin [Mass ratio] 1.4 {ratio} Normal 0.9-2.4 [facility] Comment on above: Performed By: #### L 100.0500, L500.4050 ####[facility] [address] [place], [address] ALK PHOS 197 U/L High 35-104 [facility] Comment on above: Performed By: #### L 100.0500, L500.4050 ####[facility] [address] [place], [address] ALT [Catalytic activity/Vol] 383 U/L High <=34 [facility] Comment on above: Performed By: #### L 100.0500, L500.4050 ####[facility] [address] [place], [address] AST [Catalytic activity/Vol] 535 U/L High <=31 [facility] Comment on above: Performed By: #### L 100.0500, L500.4050 ####[facility] [address] [place], [address] Bilirubin [Mass/Vol] 0.82 mg/dL Normal 0.00-1.30 [facility] Comment on above: Performed By: #### L 100.0500, L500.4050 ####[facility] [address] [place], [address] BUN/CRE 13.5 RATIO Normal 10-20 [facility] Comment on above: Performed By: #### L 100.0500, L500.4050 ####[facility] [address] [place], [address] Calcium [Mass/Vol] 9.5 mg/dL Normal 7.6-11.0 [facility] Comment on above: Performed By: #### L 100.0500, L500.4050 ####[facility] [address] [place], [address] Chloride [Moles/Vol] 100 mmol/L Normal 98-108 [facility] Comment on above: Performed By: #### L 100.0500, L500.4050 ####[facility] [address] [place], [address] CO2 [Moles/Vol] 22.0 mmol/L Normal 21.0-32.0 [facility] Comment on above: Performed By: #### L 100.0500, L500.4050 ####[facility] [address] [place], [address] Creatinine [Mass/Vol] 1.00 mg/dL Normal 0.70-1.20 [facility] Comment on above: Performed By: #### L 100.0500, L500.4050 ####[facility] [address] [place], [address] ECRCL 61.99 ml/min Normal 50-250 [facility] Comment on above: Performed By: #### L 100.0500, L500.4050 ####[facility] [address] [place], [address] GAP 13 Normal 5-15 [facility] Comment on above: Performed By: #### L 100.0500, L500.4050 ####[facility] [address] [place], [address] GFR/1.73 sq M.predicted among non-blacks MDRD (S/P/Bld) [Vol rate/Area] 71 mL/min/{1.73_m2} Normal >60 [facility] Comment on above: Result Comment: mL/m in/1.73m2 CKD-EPI Creatinine Equation (2020) Performed By: #### L 100.0500, L500.4050 ####[facility] [address] [place], [address] Globulin (S) [Mass/Vol] 2.9 g/dL Normal 2.2-4.2 [facility] Comment on above: Performed By: #### L 100.0500, L500.4050 ####[facility] [address] [place], [address] Glucose [Mass/Vol] 83 mg/dL Normal 70-99 [facility] Comment on above: Performed By: #### L 100.0500, L500.4050 ####[facility] [address] [place], [address] Potassium [Moles/Vol] 4.5 mmol/L Normal 3.3-5.1 [facility] Comment on above: Performed By: #### L 100.0500, L500.4050 ####[facility] [address] [place], [address] Sodium [Moles/Vol] 135 mmol/L Normal 133-145 [facility] Comment on above: Performed By: #### L 100.0500, L500.4050 ####[facility] [address] [place], [address] T PROT 7.1 g/dL Normal 5.9-8.4 [facility] Comment on above: Performed By: #### L 100.0500, L500.4050 ####[facility] [address] [place], [address] Urea nitrogen [Mass/Vol] 14 mg/dL Normal 4-19 [facility] Comment on above: Performed By: #### L 100.0500, L500.4050 ####[facility] [address] [place], [address] ERCP Biliary/Pancreason 08-12 ERCP Biliary/Pancreas Normal [facility] ERCP Reporton 08-21-2024 ERCP Report Normal [facility] Electrocardiogram reportOrde red By: Mercy Bishop on 08-21-2024 EKG study [facility] Work Phone: [phone] MR/POSTOP.ANEon 08-21-2024 MR/POSTOP.ANE Normal [facility] Special Stain Group IIon 06- 10-2025 Special Stain Group II Normal [place] Comment on above: Performed By: #### P SSII ####[facility] [address] [place], [place], [id number] 12 Lead EKGon 08-20-2024 12 Lead EKG Normal [facility] Absolute lymphocyte countOrd ered By: ED PROVIDER on 08-20-2024 Lymphocytes Auto (Unsp spec) [#/Vol] 1.29 10*3/uL 0.83-4.51 [facility] Anion gap in Serum or Plasma Ordered By: Simona Fernandez on 08-20-2024 Anion gap [Moles/Vol] 13 mmol/L 5-15 [facility] Automated lymphocyte count a s percentage of total leukocytesOrdered By: ED PROVIDER on 08-20-2024 Lymphocytes/100 WBC Auto (Unsp spec) 10.9 % Low 19-41 [facility] BUN/creatinine ratioOrdered By: Simona Fernandez on 08-20-2024 Urea nitrogen/Creatinine [Mass ratio] 16.5 mg/mg 10-20 [facility] Basophil percentageOrdered B y: ED PROVIDER on 08-20-2024 Basophils/100 WBC (Bld) 0.4 % 0-1 [facility] Bilirubin Test strip Ql (U)O rdered By: Simona Fernandez on 08-20-2024 Bilirubin Ql (U) Negative Negative [facility] Bilirubin, totalOrdered By: Simona Fernandez on 08-20-2024 Bilirubin [Mass/Vol] 0.67 mg/dL 0.00-1.30 [facility] CBC W/Diff, Automatedon Absolute Lymph 1.29 X10 3/uL Normal 0.83-4.51 [facility] Comment on above: Performed By: #### L 700.6800, L500.4050, L100.0100, L501.2450 ####[facility] [address] [place], [place], [address] Absolute Neut 9.9 X10 3/uL High 2.0-7.7 [facility] Comment on above: Performed By: #### L 700.6800, L500.4050, L100.0100, L501.2450 ####[facility] [address] [place], [address] Basophils/100 WBC (Bld) 0.4 % Normal 0-1 [facility] Comment on above: Performed By: #### L 700.6800, L500.4050, L100.0100, L501.2450 ####[facility] [address] [place], [address] Eosinophils/100 WBC (Bld) 0.2 % Normal 0-5 [facility] Comment on above: Performed By: #### L 700.6800, L500.4050, L100.0100, L501.2450 ####[facility] [address] [place], [address] Erythrocyte distribution width (RBC) [Ratio] 13.6 % Normal 11.6-14.6 [facility] Comment on above: Performed By: #### L 700.6800, L500.4050, L100.0100, L501.2450 ####[facility] [address] [place], [address] Hematocrit (Bld) [Volume fraction] 38.1 % Normal 37-47 [facility] Comment on above: Performed By: #### L 700.6800, L500.4050, L100.0100, L501.2450 ####[facility] [address] [place], [address] Hemoglobin (Bld) [Mass/Vol] 12.6 g/dL Normal 12.0-15.0 [facility] Comment on above: Performed By: #### L 700.6800, L500.4050, L100.0100, L501.2450 ####[facility] [address] [place], [address] IG% 0.600 Normal 0.0-0.9 [facility] Comment on above: Result Comment: IG% - Immature Granulocytes (promyelocytes, myelocytes andmetamyelocytes) > 1% indicates that a LEFT SHIFT is Present. Performed By: #### L 700.6800, L500.4050, L100.0100, L501.2450 ####[facility] [address] [place], [address] Lymphocytes/100 WBC (Bld) 10.9 % Low 19-41 [facility] Comment on above: Performed By: #### L 700.6800, L500.4050, L100.0100, L501.2450 ####[facility] [address] [place], [address] MCH (RBC) [Entitic mass] 31.7 pg Normal 27.0-32.0 [facility] Comment on above: Performed By: #### L 700.6800, L500.4050, L100.0100, L501.2450 ####[facility] [address] [place], [address] MCHC (RBC) [Mass/Vol] 33.1 g/dL Normal 32-36 [facility] Comment on above: Performed By: #### L 700.6800, L500.4050, L100.0100, L501.2450 ####[facility] [address] [place], [address] MCV (RBC) [Entitic vol] 96.0 fL Normal 81-99 [facility] Comment on above: Performed By: #### L 700.6800, L500.4050, L100.0100, L501.2450 ####[facility] [address] [place], [address] Monocytes/100 WBC (Bld) 4.6 % Normal 0-10 [facility] Comment on above: Performed By: #### L 700.6800, L500.4050, L100.0100, L501.2450 ####[facility] [address] [place], [address] Neutrophils/100 WBC (Bld) 83.3 % High 47-70 [facility] Comment on above: Performed By: #### L 700.6800, L500.4050, L100.0100, L501.2450 ####[facility] [address] [place], [address] Nucleated RBC (Bld) [#/Vol] 0 10*3/uL Normal 0-5 [facility] Comment on above: Performed By: #### L 700.6800, L500.4050, L100.0100, L501.2450 ####[facility] [address] [place], [address] Platelet mean volume (Bld) [Entitic vol] 9.9 fL Normal 6.2-12.0 [facility] Comment on above: Performed By: #### L 700.6800, L500.4050, L100.0100, L501.2450 ####[facility] [address] [place], [address] Platelets (Bld) [#/Vol] 373 10*3/uL Normal 150-450 [facility] Comment on above: Performed By: #### L 700.6800, L500.4050, L100.0100, L501.2450 ####[facility] [address] [place], [address] RBC (Bld) [#/Vol] 3.97 10*6/uL Low 4.2-5.4 [facility] Comment on above: Performed By: #### L 700.6800, L500.4050, L100.0100, L501.2450 ####[facility] [address] [place], [address] RDW SD 47.5 fl High 35.1-43.9 [facility] Comment on above: Performed By: #### L 700.6800, L500.4050, L100.0100, L501.2450 ####[facility] [address] [place], [address] WBC (Bld) [#/Vol] 11.9 10*3/uL High 4.4-11.0 [facility] Comment on above: Performed By: #### L 700.6800, L500.4050, L100.0100, L501.2450 ####[facility] [address] [place], [address] Carbon dioxide, total [Moles /volume] in Central venous bloodOrdered By: Simona Fernandez on 08-20-2024 CO2 [Moles/Vol] 19.0 mmol/L Low 21.0-32.0 [facility] Chest PA and Lateralon 08-20 Chest PA and Lateral Normal [facility] Chloride assayOrdered By: Demetrio Fernandez on 08-20-2024 Chloride [Moles/Vol] 104 mmol/L 98-108 [facility] Comprehensive Metabolic Prof ilon 08-20-2024 Albumin [Mass/Vol] 4.0 g/dL Normal 3.5-5.0 [facility] Comment on above: Performed By: #### L 700.6800, L500.4050, L100.0100, L501.2450 ####[facility] [address] [place], [address] Albumin/Globulin [Mass ratio] 1.5 {ratio} Normal 0.9-2.4 [facility] Comment on above: Performed By: #### L 700.6800, L500.4050, L100.0100, L501.2450 ####[facility] [address] [place], [address] ALK PHOS 182 U/L High 35-104 [facility] Comment on above: Performed By: #### L 700.6800, L500.4050, L100.0100, L501.2450 ####[facility] [address] [place], [address] ALT [Catalytic activity/Vol] 103 U/L High <=34 [facility] Comment on above: Performed By: #### L 700.6800, L500.4050, L100.0100, L501.2450 ####[facility] [address] [place], [address] AST [Catalytic activity/Vol] 115 U/L High <=31 [facility] Comment on above: Performed By: #### L 700.6800, L500.4050, L100.0100, L501.2450 ####[facility] [address] [place], [address] Bilirubin [Mass/Vol] 0.67 mg/dL Normal 0.00-1.30 [facility] Comment on above: Performed By: #### L 700.6800, L500.4050, L100.0100, L501.2450 ####[facility] [address] [place], [address] BUN/CRE 16.5 RATIO Normal 10-20 [facility] Comment on above: Performed By: #### L 700.6800, L500.4050, L100.0100, L501.2450 ####[facility] [address] [place], [address] Calcium [Mass/Vol] 9.1 mg/dL Normal 7.6-11.0 [facility] Comment on above: Performed By: #### L 700.6800, L500.4050, L100.0100, L501.2450 ####[facility] [address] [place], [address] Chloride [Moles/Vol] 104 mmol/L Normal 98-108 [facility] Comment on above: Performed By: #### L 700.6800, L500.4050, L100.0100, L501.2450 ####[facility] [address] [place], [address] CO2 [Moles/Vol] 19.0 mmol/L Low 21.0-32.0 [facility] Comment on above: Performed By: #### L 700.6800, L500.4050, L100.0100, L501.2450 ####[facility] [address] [place], [address] Creatinine [Mass/Vol] 0.97 mg/dL Normal 0.70-1.20 [facility] Comment on above: Performed By: #### L 700.6800, L500.4050, L100.0100, L501.2450 ####[facility] [address] [place], [address] ECRCL 63.91 ml/min Normal 50-250 [facility] Comment on above: Performed By: #### L 700.6800, L500.4050, L100.0100, L501.2450 ####[facility] [address] [place], [address] GAP 13 Normal 5-15 [facility] Comment on above: Performed By: #### L 700.6800, L500.4050, L100.0100, L501.2450 ####[facility] [address] [place], [address] GFR/1.73 sq M.predicted among non-blacks MDRD (S/P/Bld) [Vol rate/Area] 74 mL/min/{1.73_m2} Normal >60 [facility] Comment on above: Result Comment: mL/m in/1.73m2 CKD-EPI Creatinine Equation (2020) Performed By: #### L 700.6800, L500.4050, L100.0100, L501.2450 ####[facility] [address] [place], [address] Globulin (S) [Mass/Vol] 2.7 g/dL Normal 2.2-4.2 [facility] Comment on above: Performed By: #### L 700.6800, L500.4050, L100.0100, L501.2450 ####[facility] [address] [place], [address] Glucose [Mass/Vol] 118 mg/dL High 70-99 [facility] Comment on above: Performed By: #### L 700.6800, L500.4050, L100.0100, L501.2450 ####[facility] [address] [place], [address] Potassium [Moles/Vol] 4.9 mmol/L Normal 3.3-5.1 [facility] Comment on above: Performed By: #### L 700.6800, L500.4050, L100.0100, L501.2450 ####[facility] [address] [place], [address] Sodium [Moles/Vol] 136 mmol/L Normal 133-145 [facility] Comment on above: Performed By: #### L 700.6800, L500.4050, L100.0100, L501.2450 ####[facility] [address] [place], [address] T PROT 6.6 g/dL Normal 5.9-8.4 [facility] Comment on above: Performed By: #### L 700.6800, L500.4050, L100.0100, L501.2450 ####[facility] [address] [place], [address] Urea nitrogen [Mass/Vol] 16 mg/dL Normal 4-19 [facility] Comment on above: Performed By: #### L 700.6800, L500.4050, L100.0100, L501.2450 ####[facility] [address] [place], [address] Emergency Department Summary on 08-20-2024 Emergency Department Summary Normal [facility] Eosinophil percentageOrdered By: ED PROVIDER on 08-20-2024 Eosinophils/100 WBC (Bld) 0.2 % 0-5 [facility] Erythrocyte distribution wid th ratioOrdered By: ED PROVIDER on 08-20-2024 Erythrocyte distribution width (RBC) [Ratio] 13.6 % 11.6-14.6 [facility] Erythrocyte distribution wid th standard deviationOrdered By: ED PROVIDER on 08-20-2024 Erythrocyte distribution width (RBC) [Ratio] 47.5 fl High 35.1-43.9 [facility] Glomerular filtration rate ( GFR) estimation/1.73 sq m using serum, plasma, or whole bOrdered By: Simona Fernandez on 08-20-2024 GFR/1.73 sq M.predicted among non-blacks MDRD (S/P/Bld) [Vol rate/Area] 74 mL/min/{1.73_m2} >60 [facility] H AND P Exam - [place] 08-20-2024 H&P Exam - Hospitalist Normal [place] Hematocrit Auto (Bld) [Volum e fraction]Ordered By: ED PROVIDER on 08-20-2024 Hematocrit (Bld) [Volume fraction] 38.1 % 37-47 [facility] Hemoglobin measurementOrdere d By: ED PROVIDER on 08-20-2024 Hemoglobin (Bld) [Mass/Vol] 12.6 g/dL 12.0-15.0 [facility] Immature granulocytes/100 WB C Auto (Bld)Ordered By: ED PROVIDER on 08-20-2024 Immature granulocytes/100 WBC (Bld) 0.600 % 0.0-0.9 [facility] Ketones Test strip Ql (U)Ord ered By: Simoan Fernandez on 08-20-2024 Ketones Ql (U) Negative Negative [facility] L503.7505on 08-20-2024 Natriuretic peptide B (Bld) [Mass/Vol] 3711 pg/mL High <=450 [facility] Comment on above: Result Comment: Hear t Failure Unlikely: < 300 pg/mLHeart Failure Likely< 50 Years: > 450 pg/mL50-75 Years: > 900 pg/mL>75 Years: > 1800 pg/mL Performed By: #### L 503.7505 ####[facility] [address] [place], [place], [address] Lipaseon 08-20-2024 Lipase [Catalytic activity/Vol] 11 U/L Low 13-75 [facility] Comment on above: Result Comment: Liam rader note:LIPASE revised reference range effective 22.New Lipase methodology. Expected to produce lower valuesthan the previous assay method.NEW Reference Range: 13 - 75 U/L Performed By: #### L 700.6800, L500.4050, L100.0100, L501.2450 ####[facility] [address] [place], [place], [address] Liveron 08-20-2024 Liver Normal [facility] MCV (mean corpuscular volume ) determinationOrdered By: ED PROVIDER on 08-20-2024 MCV (RBC) [Entitic vol] 96.0 fL 81-99 [facility] MR/CON.PCM.GIon 08-20-2024 MR/CON.PCM.GI Normal [facility] Mean corpuscular hemoglobin (MCH) determinationOrdered By: ED PROVIDER on 08-20-2024 MCH (RBC) [Entitic mass] 31.7 pg 27.0-32.0 [facility] Monocyte percentageOrdered B y: ED PROVIDER on 08-20-2024 Monocytes/100 WBC (Bld) 4.6 % 0-10 [facility] Mucus LM Ql (Urine sed)Order ed By: Simona Fernandez on 08-20-2024 Mucus Ql (Urine sed) 0 SEEN /hpf [facility] Natriuretic peptide.B prohor abbey N-Terminal [Mass/volume] in Serum or PlasmaOrdered By: Simona Fernandez on 08-20-2024 Natriuretic peptide.B prohormone N-Terminal [Mass/Vol] 3711 pg/mL High <450 [facility] Neutrophil percentageOrdered By: ED PROVIDER on 08-20-2024 Neutrophils/100 WBC (Bld) 83.3 % High 47-70 [facility] Nitrite Test strip Ql (U)Ord ered By: Simona Fernandez on 08-20-2024 Nitrite Ql (U) Negative Negative [facility] No Panel InformationOrdered By: Simona Fernandez on 08-20-2024 115 U/L High <32 [facility] Platelet countOrdered By: ED PROVIDER on 08-20-2024 Platelets (Bld) [#/Vol] 373 10*3/uL 150-450 [facility] Potassium measurement (mass/ volume)Ordered By: Simona Fernandez on 08-20-2024 Potassium (Unsp spec) [Mass/Vol] 4.9 mmol/L 3.3-5.1 [facility] ,Serum,hCG Quali.on 08-20-2024 HCG, SERUM QUAL Negative Normal [facility] Comment on above: Performed By: #### L 700.6800, L500.4050, L100.0100, L501.2450 ####[facility] [address] [place], [address] ,Urineon 08-20-2024 Beta HCG ( test) Ql (U) Normal [facility] Comment on above: Order Comment: Femal es 12-55 or menstruation outside age range Result Comment: PREG SERUM ALREADY COMPLETED Performed By: #### L 400.4960 ####[facility] [address] [place], [place], [address] INTERNAL QC OK? Normal [facility] Comment on above: Order Comment: Femal es 12-55 or menstruation outside age range Result Comment: PREG SERUM ALREADY COMPLETED Performed By: #### L 400.2970 ####[facility] [address] [place], [place], [address] RECORD KIT LOT# Normal [facility] Comment on above: Order Comment: Femal es 12-55 or menstruation outside age range Result Comment: PREG SERUM ALREADY COMPLETED Performed By: #### L 400.7600 ####[facility] [address] [place], [place], [address] Protein Test strip Ql (U)Ord ered By: Simona Fernandez on 08-20-2024 Protein Ql (U) 15 mg/dl High Negative [facility] RBC Auto (Bld) [#/Vol]Ordere d By: ED PROVIDER on 08-20-2024 RBC (Bld) [#/Vol] 3.97 10*6/uL Low 4.2-5.4 [facility] Serum beta-hCG test, qualita tiveOrdered By: Simona Fernandez on 08-20-2024 Beta HCG ( test) Ql Negative [facility] Serum creatinine measurement (mass/volume)Ordered By: Simona Fernandez on 08-20-2024 Creatinine [Mass/Vol] 0.97 mg/dL 0.70-1.20 [facility] Serum globulin measurementOr dered By: Simona Fernandez on 08-20-2024 Globulin (S) [Mass/Vol] 2.7 g/dL 2.2-4.2 [facility] Serum glucose measurement (m ass/volume)Ordered By: Simona Fernandez on 08-20-2024 Glucose [Mass/Vol] 118 mg/dL High 70-99 [facility] Serum or plasma alanine hair otransferase (ALT) measurementOrdered By: Simona Fernandez on 08-20-2024 ALT [Catalytic activity/Vol] 103 U/L High <35 [facility] Serum or plasma albumin leslie urement (mass/volume)Ordered By: Simona Fernandez on 08-20-2024 Albumin [Mass/Vol] 4.0 g/dL 3.5-5.0 [facility] Serum or plasma albumin/glob ulin mass ratioOrdered By: Simona Fernandez on 08-20-2024 Albumin/Globulin [Mass ratio] 1.5 {ratio} 0.9-2.4 [facility] Serum or plasma alkaline delfin sphatase measurementOrdered By: Simona Fernandez on 08-20-2024 ALP [Catalytic activity/Vol] 182 U/L High 35-104 [facility] Serum or plasma calcium leslie urement (mass/volume)Ordered By: Simona Fernandez on 08-20-2024 Calcium [Mass/Vol] 9.1 mg/dL 7.6-11.0 [facility] Serum or plasma urea nitroge n measurement (mass/volume)Ordered By: Simona Fernandez on 08-20-2024 Urea nitrogen [Mass/Vol] 16 mg/dL 4-19 [facility] Sodium levelOrdered By: Shanika Fernandez on 08-20-2024 Sodium [Moles/Vol] 136 mmol/L 133-145 [facility] Squamous epithelial cells de tection in urine sediment by light microscopyOrdered By: Simona Fernandez on 08-20-2024 Epithelial cells.squamous LM Ql (Urine sed) 0-5 SEEN /hpf - [facility] Total proteinOrdered By: Cherri Fernandez on 08-20-2024 Protein [Mass/Vol] 6.6 g/dL 5.9-8.4 [facility] Urinalysis, Completeon 08-20 EPI,SQUAMOUS 0-5 SEEN Normal - [facility] Comment on above: Order Comment: CLEAN CATCH Performed By: #### L 400.0001 ####[facility] [address] [place], [address] RBC 0-5 SEEN Normal 0-5 [facility] Comment on above: Order Comment: CLEAN CATCH Performed By: #### L 400.0001 ####[facility] [address] [place], [address] WBC 0-5 SEEN Normal 0-5 [facility] Comment on above: Order Comment: CLEAN CATCH Performed By: #### L 400.0001 ####[facility] [address] [place], [address] BACTERIA 0 SEEN Normal None Seen [facility] Comment on above: Order Comment: CLEAN CATCH Performed By: #### L 400.0001 ####[facility] [address] [place], [address] Mucus Ql (Urine sed) 0 SEEN Normal [facility] Comment on above: Order Comment: CLEAN CATCH Performed By: #### L 400.0001 ####[facility] [address] [place], [address] Urine clarityOrdered By: Cherri Fernandez on 08-20-2024 Clarity (U) Clear Clear [facility] Urine color determinationOrd ered By: Simona Fernandez on 08-20-2024 Color (U) Straw Yellow [facility] Urine glucose detectionOrder ed By: Simona Fernandez on 08-20-2024 Glucose Ql (U) Normal mg/dl Normal [facility] Urine leukocyte esterase det ection by dipstickOrdered By: Simona Fernandez on 08-20-2024 Leukocyte esterase Test strip Ql (U) Negative Negative [facility] Urine pHOrdered By: Simona lucio on 08-20-2024 pH (U) 6.5 [pH] 5.0 - 8.0 [facility] Urine sediment bacteria coun t by microscopy (number/high power field)Ordered By: Simona Fernandez on 08-20-2024 Bacteria LM.HPF (Urine sed) [#/Area] 0 /[HPF] None Seen [facility] Urine specific gravity measu rementOrdered By: Simona Fernandez on 08-20-2024 Specific gravity (U) [Rel density] 1.010 1.002-1.03 0 [facility] Urine urobilinogen measureme ntOrdered By: Simona Fernandez on 08-20-2024 Urobilinogen Ql (U) Normal mg/dl Normal [facility] White blood cell (WBC) count Ordered By: ED PROVIDER on 08-20-2024 WBC (Bld) [#/Vol] 11.9 10*3/uL High 4.4-11.0 [facility] White blood cell countOrdere d By: Simona Fernandez on 08-20-2024 White blood cell count 0-5 SEEN /hpf 0-5 [facility] Ova and Parasites 8623on OP Normal [facility] Comment on above: Performed By: #### L 7000.0700, M100.6796, M100.0605, M100.637, L7400.3300, M600.5000 ####[facility] [address] [facility] [place], [place], [id number] ECG 12-LEADon 08-15-2024 ECG 12-LEAD Ventricular Rate 60 Atrial Rate 60 P-R Interval 170 QRS Duration 102 Q-T Interval 436 QTC Calculation(Bazett) 436 P [place] 17 R [place] -73 T [place] 83 QRS Count 10 Q Onset 205 P Onset 120 P Offset 185 T Offset 423 QTC Fredericia 436 Diagnosis Normal sinus rhythm Possible Left atrial enlargement Incomplete right bundle branch block Left anterior fascicular block Septal infarct , age undetermined Abnormal ECG When compared with ECG of 05-MAY-2006 11:19, Significant changes have occurred Confirmed by Grady Sky ([id number]) on 10/13/2024 10:41:57 AM Normal [facility]3] SANDRA Comprehensive Panelon ANTI-DNA (DS)AB <1 Normal 0-9 [facility] Comment on above: Result Comment: Nega tive <5 Equivocal 5 - 9 Positive >9 Performed By: #### L 3100.6900, L101.9900, L500.4050, L501.6710, L501.9985, L503.5510, L3200.0500, L3100.5440, L5500.0410, L3100.3425, L503.6150, L3300.0100, L3100.1850, L504.2610, L100.9950, L3300.1200, L100.0100, L501.9520, L300.3900, L3410.2400, L3200.1100, L3400.0700, L503.6550, L3300.1800 ####[facility] [address] [place], [place], [address] ANTI-SS-A < 0.2 Normal 0.0-0.9 [facility] Comment on above: Performed By: #### L 3100.6900, L101.9900, L500.4050, L501.6710, L501.9985, L503.5510, L3200.0500, L3100.5440, L5500.0410, L3100.3425, L503.6150, L3300.0100, L3100.1850, L504.2610, L100.9950, L3300.1200, L100.0100, L501.9520, L300.3900, L3410.2400, L3200.1100, L3400.0700, L503.6550, L3300.1800 ####[facility] [address] [place], [place], [address] ANTI-SS-B 0.2 AI Normal 0.0-0.9 [facility] Comment on above: Performed By: #### L 3100.6900, L101.9900, L500.4050, L501.6710, L501.9985, L503.5510, L3200.0500, L3100.5440, L5500.0410, L3100.3425, L503.6150, L3300.0100, L3100.1850, L504.2610, L100.9950, L3300.1200, L100.0100, L501.9520, L300.3900, L3410.2400, L3200.1100, L3400.0700, L503.6550, L3300.1800 ####[facility] [address] [place], [place], [address] Abdomen/Pelvis without Conto n 08-11-2024 Abdomen/Pelvis without Cont Normal [facility] Absolute lymphocyte countOrd ered By: Gage Sharma on 08-11-2024 Lymphocytes Auto (Unsp spec) [#/Vol] 1.19 10*3/uL 0.83-4.51 [facility] Allergen, Food Profileon CLAM <0.10 Normal Class 0 [facility] Comment on above: Performed By: #### L 3100.6900, L101.9900, L500.4050, L501.6710, L501.9985, L503.5510, L3200.0500, L3100.5440, L5500.0410, L3100.3425, L503.6150, L3300.0100, L3100.1850, L504.2610, L100.9950, L3300.1200, L100.0100, L501.9520, L300.3900, L3410.2400, L3200.1100, L3400.0700, L503.6550, L3300.1800 ####[facility] [address] [place], [place], [id number] CODFISH <0.10 Normal Class 0 [facility] Comment on above: Performed By: #### L 3100.6900, L101.9900, L500.4050, L501.6710, L501.9985, L503.5510, L3200.0500, L3100.5440, L5500.0410, L3100.3425, L503.6150, L3300.0100, L3100.1850, L504.2610, L100.9950, L3300.1200, L100.0100, L501.9520, L300.3900, L3410.2400, L3200.1100, L3400.0700, L503.6550, L3300.1800 ####[facility] [address] [place], [place], [id number] COMMENT Comment Normal . [facility] Comment on above: Result Comment: Lupe urias of Specific IgE Class Description of Class ----- < 0.10 0 Negative 0.10 - 0.31 0/I Equivocal/Low 0.32 - 0.55 I Low 0.56 - 1.40 II Moderate 1.41 - 3.90 III High 3.91 - 19.00 IV Very High 19.01 - 100.00 V Very High >100.00 Very High Performed By: #### L 3100.6900, L101.9900, L500.4050, L501.6710, L501.9985, L503.5510, L3200.0500, L3100.5440, L5500.0410, L3100.3425, L503.6150, L3300.0100, L3100.1850, L504.2610, L100.9950, L3300.1200, L100.0100, L501.9520, L300.3900, L3410.2400, L3200.1100, L3400.0700, L503.6550, L3300.1800 ####[facility] [address] [place], [place], [id number] CORN <0.10 Normal Class 0 [facility] Comment on above: Performed By: #### L 3100.6900, L101.9900, L500.4050, L501.6710, L501.9985, L503.5510, L3200.0500, L3100.5440, L5500.0410, L3100.3425, L503.6150, L3300.0100, L3100.1850, L504.2610, L100.9950, L3300.1200, L100.0100, L501.9520, L300.3900, L3410.2400, L3200.1100, L3400.0700, L503.6550, L3300.1800 ####[facility] [address] [place], [place], [id number] EGG, WHITE <0.10 Normal Class 0 [facility] Comment on above: Performed By: #### L 3100.6900, L101.9900, L500.4050, L501.6710, L501.9985, L503.5510, L3200.0500, L3100.5440, L5500.0410, L3100.3425, L503.6150, L3300.0100, L3100.1850, L504.2610, L100.9950, L3300.1200, L100.0100, L501.9520, L300.3900, L3410.2400, L3200.1100, L3400.0700, L503.6550, L3300.1800 ####[facility] [address] [place], [address] MILK (COW) 0.24 kU/L Abnormal Class 0/I [facility] Comment on above: Performed By: #### L 3100.6900, L101.9900, L500.4050, L501.6710, L501.9985, L503.5510, L3200.0500, L3100.5440, L5500.0410, L3100.3425, L503.6150, L3300.0100, L3100.1850, L504.2610, L100.9950, L3300.1200, L100.0100, L501.9520, L300.3900, L3410.2400, L3200.1100, L3400.0700, L503.6550, L3300.1800 ####[facility] [address] [facility] [place], [address] PEANUT <0.10 Normal Class 0 [facility] Comment on above: Performed By: #### L 3100.6900, L101.9900, L500.4050, L501.6710, L501.9985, L503.5510, L3200.0500, L3100.5440, L5500.0410, L3100.3425, L503.6150, L3300.0100, L3100.1850, L504.2610, L100.9950, L3300.1200, L100.0100, L501.9520, L300.3900, L3410.2400, L3200.1100, L3400.0700, L503.6550, L3300.1800 ####[facility] [address] [facility] [place], [address] SCALLOP <0.10 Normal Class 0 [facility] Comment on above: Performed By: #### L 3100.6900, L101.9900, L500.4050, L501.6710, L501.9985, L503.5510, L3200.0500, L3100.5440, L5500.0410, L3100.3425, L503.6150, L3300.0100, L3100.1850, L504.2610, L100.9950, L3300.1200, L100.0100, L501.9520, L300.3900, L3410.2400, L3200.1100, L3400.0700, L503.6550, L3300.1800 ####[facility] [address] [place], [address] SESAME SEED <0.10 Normal Class 0 [facility] Comment on above: Result Comment: Perf ormed at: [facility] [address] [id number] Director: Victor M Hargrove PhD, Phone: [phone] at: [facility] [address] [id number] Director: Isac Kemp MD, Phone: [phone] Performed By: #### L 3100.6900, L101.9900, L500.4050, L501.6710, L501.9985, L503.5510, L3200.0500, L3100.5440, L5500.0410, L3100.3425, L503.6150, L3300.0100, L3100.1850, L504.2610, L100.9950, L3300.1200, L100.0100, L501.9520, L300.3900, L3410.2400, L3200.1100, L3400.0700, L503.6550, L3300.1800 ####[facility] [address] [place], [address] SHRIMP <0.10 Normal Class 0 [facility] Comment on above: Performed By: #### L 3100.6900, L101.9900, L500.4050, L501.6710, L501.9985, L503.5510, L3200.0500, L3100.5440, L5500.0410, L3100.3425, L503.6150, L3300.0100, L3100.1850, L504.2610, L100.9950, L3300.1200, L100.0100, L501.9520, L300.3900, L3410.2400, L3200.1100, L3400.0700, L503.6550, L3300.1800 ####[facility] [address] [place], [place], [id number] SOYBEAN <0.10 Normal Class 0 [facility] Comment on above: Performed By: #### L 3100.6900, L101.9900, L500.4050, L501.6710, L501.9985, L503.5510, L3200.0500, L3100.5440, L5500.0410, L3100.3425, L503.6150, L3300.0100, L3100.1850, L504.2610, L100.9950, L3300.1200, L100.0100, L501.9520, L300.3900, L3410.2400, L3200.1100, L3400.0700, L503.6550, L3300.1800 ####[facility] [address] [place], [place], [id number] WALNUT,(Food) <0.10 Normal Class 0 [facility] Comment on above: Performed By: #### L 3100.6900, L101.9900, L500.4050, L501.6710, L501.9985, L503.5510, L3200.0500, L3100.5440, L5500.0410, L3100.3425, L503.6150, L3300.0100, L3100.1850, L504.2610, L100.9950, L3300.1200, L100.0100, L501.9520, L300.3900, L3410.2400, L3200.1100, L3400.0700, L503.6550, L3300.1800 ####[facility] [address] [place], [address] WHEAT <0.10 Normal Class 0 [facility] Comment on above: Performed By: #### L 3100.6900, L101.9900, L500.4050, L501.6710, L501.9985, L503.5510, L3200.0500, L3100.5440, L5500.0410, L3100.3425, L503.6150, L3300.0100, L3100.1850, L504.2610, L100.9950, L3300.1200, L100.0100, L501.9520, L300.3900, L3410.2400, L3200.1100, L3400.0700, L503.6550, L3300.1800 ####[facility] [address] [place], [place], [phone] Anion gap in Serum or Plasma Ordered By: Gage Sharma on 08-11-2024 Anion gap [Moles/Vol] 12 mmol/L 5-15 [facility] Automated lymphocyte count a s percentage of total leukocytesOrdered By: Gage Sharma on 08-11-2024 Lymphocytes/100 WBC Auto (Unsp spec) 11.4 % Low 19-41 [facility] BUN/creatinine ratioOrdered By: Gage korinLynne on 08-11-2024 Urea nitrogen/Creatinine [Mass ratio] 12.1 mg/mg - [facility] Basic Metabolic Profile (BMP )on 08-11-2024 BUN/CRE 12.1 RATIO Normal - [facility] Comment on above: Performed By: #### L 500.2500, L503.6005 ####[facility] [address] [place], [place], [id number] Calcium [Mass/Vol] 9.5 mg/dL Normal 7.6-11.0 [facility] Comment on above: Performed By: #### L 500.2500, L503.6005 ####[facility] [address] [place], [address] Chloride [Moles/Vol] 103 mmol/L Normal 98-108 [facility] Comment on above: Performed By: #### L 500.2500, L503.6005 ####[facility] [address] [place], [address] CO2 [Moles/Vol] 22.0 mmol/L Normal 21.0-32.0 [facility] Comment on above: Performed By: #### L 500.2500, L503.6005 ####[facility] [address] [place], [address] Creatinine [Mass/Vol] 0.74 mg/dL Normal 0.70-1.20 [facility] Comment on above: Performed By: #### L 500.2500, L503.6005 ####[facility] [address] [place], [address] ECRCL 83.77 ml/min Normal 50-250 [facility] Comment on above: Performed By: #### L 500.2500, L503.6005 ####[facility] [address] [place], [address] GAP 12 Normal 5-15 [facility] Comment on above: Performed By: #### L 500.2500, L503.6005 ####[facility] [address] [place], [address] GFR/1.73 sq M.predicted among non-blacks MDRD (S/P/Bld) [Vol rate/Area] 103 mL/min/{1.73_m2} Normal >60 [facility] Comment on above: Result Comment: mL/m in/1.73m2 CKD-EPI Creatinine Equation (2020) Performed By: #### L 500.2500, L503.6005 ####[facility] [address] [place], [address] Glucose [Mass/Vol] 90 mg/dL Normal 70-99 [facility] Comment on above: Performed By: #### L 500.2500, L503.6005 ####[facility] [address] [place], [address] Potassium [Moles/Vol] 4.2 mmol/L Normal 3.3-5.1 [facility] Comment on above: Performed By: #### L 500.2500, L503.6005 ####[facility] [address] [place], [address] Sodium [Moles/Vol] 137 mmol/L Normal 133-145 [facility] Comment on above: Performed By: #### L 500.2500, L503.6005 ####[facility] [address] [place], [address] Urea nitrogen [Mass/Vol] 9 mg/dL Normal 4-19 [facility] Comment on above: Performed By: #### L 500.2500, L503.6005 ####[facility] [address] [place], [address] Basophil percentageOrdered B y: Gage Sharma on 08-11-2024 Basophils/100 WBC (Bld) 0.9 % 0-1 [facility] Bilirubin Test strip Ql (U)O rdered By: Gage Sharma on 08-11-2024 Bilirubin Ql (U) Negative Negative [facility] Bilirubin directOrdered By: Badger JocelyneLynne on 08-11-2024 Bilirubin.direct [Mass/Vol] 0.12 mg/dL 0.00-0.30 [facility] Bilirubin, totalOrdered By: Gage Sharma on 08-11-2024 Bilirubin [Mass/Vol] 0.29 mg/dL 0.00-1.30 [facility] CBC W/Diff, Automatedon 05- Absolute Lymph 1.19 X10 3/uL Normal 0.83-4.51 [facility] Comment on above: Performed By: #### L 100.0100 ####[facility] [address] [place], [address] Absolute Neut 8.4 X10 3/uL High 2.0-7.7 [facility] Comment on above: Performed By: #### L 100.0100 ####[facility] [address] [place], [address] Basophils/100 WBC (Bld) 0.9 % Normal 0-1 [facility] Comment on above: Performed By: #### L 100.0100 ####[facility] [address] [place], [address] Eosinophils/100 WBC (Bld) 1.9 % Normal 0-5 [facility] Comment on above: Performed By: #### L 100.0100 ####[facility] [address] [place], [address] Erythrocyte distribution width (RBC) [Ratio] 13.1 % Normal 11.6-14.6 [facility] Comment on above: Performed By: #### L 100.0100 ####[facility] [address] [place], [address] Hematocrit (Bld) [Volume fraction] 40.9 % Normal 37-47 [facility] Comment on above: Performed By: #### L 100.0100 ####[facility] [address] [place], [address] Hemoglobin (Bld) [Mass/Vol] 13.5 g/dL Normal 12.0-15.0 [facility] Comment on above: Performed By: #### L 100.0100 ####[facility] [address] [place], [address] IG% 0.700 Normal 0.0-0.9 [facility] Comment on above: Result Comment: IG% - Immature Granulocytes (promyelocytes, myelocytes andmetamyelocytes) > 1% indicates that a LEFT SHIFT is Present. Performed By: #### L 100.0100 ####[facility] [address] [place], [address] Lymphocytes/100 WBC (Bld) 11.4 % Low 19-41 [facility] Comment on above: Performed By: #### L 100.0100 ####[facility] [address] [place], [address] MCH (RBC) [Entitic mass] 31.7 pg Normal 27.0-32.0 [facility] Comment on above: Performed By: #### L 100.0100 ####[facility] [address] [place], [address] MCHC (RBC) [Mass/Vol] 33.0 g/dL Normal 32-36 [facility] Comment on above: Performed By: #### L 100.0100 ####[facility] [address] [place], [address] MCV (RBC) [Entitic vol] 96.0 fL Normal 81-99 [facility] Comment on above: Performed By: #### L 100.0100 ####[facility] [address] [place], [address] Monocytes/100 WBC (Bld) 4.9 % Normal 0-10 [facility] Comment on above: Performed By: #### L 100.0100 ####[facility] [address] [place], [address] Neutrophils/100 WBC (Bld) 80.2 % High 47-70 [facility] Comment on above: Performed By: #### L 100.0100 ####[facility] [address] [place], [address] Nucleated RBC (Bld) [#/Vol] 0 10*3/uL Normal 0-5 [facility] Comment on above: Performed By: #### L 100.0100 ####[facility] [address] [place], [address] Platelet mean volume (Bld) [Entitic vol] 9.9 fL Normal 6.2-12.0 [facility] Comment on above: Performed By: #### L 100.0100 ####[facility] [address] [place], [address] Platelets (Bld) [#/Vol] 433 10*3/uL Normal 150-450 [facility] Comment on above: Performed By: #### L 100.0100 ####[facility] [address] [place], [address] RBC (Bld) [#/Vol] 4.26 10*6/uL Normal 4.2-5.4 [facility] Comment on above: Performed By: #### L 100.0100 ####[facility] [address] [place], [address] RDW SD 46.5 fl High 35.1-43.9 [facility] Comment on above: Performed By: #### L 100.0100 ####[facility] [address] [place], [address] WBC (Bld) [#/Vol] 10.5 10*3/uL Normal 4.4-11.0 [facility] Comment on above: Performed By: #### L 100.0100 ####[facility] [address] [place], [address] Calprotectin, Stoolon [address] 13 ug/g Normal 0-120 [facility] Comment on above: Result Comment: Conc entration Interpretation Follow-Up< 5 - 50 ug/g Normal None>50 -120 ug/g Borderline Re-evaluate in 4-6 weeks >120 ug/g Abnormal Repeat as clinically indicatedPerformed at: - [facility] [address] [place], [place] [id number] Director: Isac Kemp MD, Phone: [phone] Performed By: #### L 7000.0700, M100.6796, M100.0605, M100.637, L7400.3300, M600.5000 ####[facility] [address] [place], [place], [id number] Carbon dioxide, total [Moles /volume] in Central venous bloodOrdered By: Gage Sharma on 08-11-2024 CO2 [Moles/Vol] 22.0 mmol/L 21.0-32.0 [facility] Chloride assayOrdered By: Jose Maria Sharma on 08-11-2024 Chloride [Moles/Vol] 103 mmol/L 98-108 [facility] Emergency Department Summary on 08-11-2024 Emergency Department Summary Normal [facility] Eosinophil percentageOrdered By: Gage Sharma on 08-11-2024 Eosinophils/100 WBC (Bld) 1.9 % 0-5 [facility] Erythrocyte distribution wid th ratioOrdered By: Gage Sharma on 08-11-2024 Erythrocyte distribution width (RBC) [Ratio] 13.1 % 11.6-14.6 [facility] Erythrocyte distribution wid th standard deviationOrdered By: [facility] Bat[facility] on 08-11-2024 Erythrocyte distribution width (RBC) [Ratio] 46.5 fl High 35.1-43.9 [facility] Glomerular filtration rate ( GFR) estimation/1.73 sq m using serum, plasma, or whole bOrdered By: Gage Sharma on 08-11-2024 GFR/1.73 sq M.predicted among non-blacks MDRD (S/P/Bld) [Vol rate/Area] 103 mL/min/{1.73_m2} >60 [facility] Hematocrit Auto (Bld) [Volum e fraction]Ordered By: Gage Sharma on 08-11-2024 Hematocrit (Bld) [Volume fraction] 40.9 % 37-47 [facility] Hemoglobin measurementOrdere d By: Gagejuan MilianLynne on 08-11-2024 Hemoglobin (Bld) [Mass/Vol] 13.5 g/dL 12.0-15.0 [facility] Immature granulocytes/100 WB C Auto (Bld)Ordered By: [facility] on 08-11-2024 Immature granulocytes/100 WBC (Bld) 0.700 % 0.0-0.9 [facility] Ketones Test strip Ql (U)Ord ered By: [facility] on 08-11-2024 Ketones Ql (U) Negative Negative [facility] Lactic Acidon 08-11-2024 Lactate [Moles/Vol] mmol/L Normal 0.0-2.0 [facility] Comment on above: Order Comment: Y Performed By: #### L 500.2500, L503.6005 ####[facility] [address] [place], [address] Lipaseon 08-11-2024 Lipase [Catalytic activity/Vol] 17 U/L Normal 13-75 [facility] Comment on above: Result Comment: Liam rader note:LIPASE revised reference range effective 22.New Lipase methodology. Expected to produce lower valuesthan the previous assay method.NEW Reference Range: 13 - 75 U/L Performed By: #### L 500.3400, L501.2450 ####[facility] [address] [place], [address] Liver Profileon 08-11-2024 Albumin [Mass/Vol] 4.0 g/dL Normal 3.5-5.0 [facility] Comment on above: Performed By: #### L 500.3400, L501.2450 ####[facility] [address] [place], [address] ALK PHOS 173 U/L High 35-104 [facility] Comment on above: Performed By: #### L 500.3400, L501.2450 ####[facility] [address] [place], [address] ALT [Catalytic activity/Vol] 32 U/L Normal <=34 [facility] Comment on above: Performed By: #### L 500.3400, L501.2450 ####[facility] [address] [place], [address] AST [Catalytic activity/Vol] 38 U/L High <=31 [facility] Comment on above: Performed By: #### L 500.3400, L501.2450 ####[facility] [address] [place], [address] Bilirubin [Mass/Vol] 0.29 mg/dL Normal 0.00-1.30 [facility] Comment on above: Performed By: #### L 500.3400, L501.2450 ####[facility] [address] [place], [address] Bilirubin.direct [Mass/Vol] 0.12 mg/dL Normal 0.00-0.30 [facility] Comment on above: Performed By: #### L 500.3400, L501.2450 ####[facility] [address] [place], [address] Globulin (S) [Mass/Vol] 3.1 g/dL Normal 2.2-4.2 [facility] Comment on above: Performed By: #### L 500.3400, L501.2450 ####[facility] [address] [place], [address] T PROT 7.2 g/dL Normal 5.9-8.4 [facility] Comment on above: Performed By: #### L 500.3400, L501.2450 ####[facility] [address] [place], [address] MCV (mean corpuscular volume ) determinationOrdered By: Gage Sharma on 08-11-2024 MCV (RBC) [Entitic vol] 96.0 fL 81-99 [facility] Mean corpuscular hemoglobin (MCH) determinationOrdered By: Gage Sharma on 08-11-2024 MCH (RBC) [Entitic mass] 31.7 pg 27.0-32.0 [facility] Monocyte percentageOrdered B y: Gage Sharma on 08-11-2024 Monocytes/100 WBC (Bld) 4.9 % 0-10 [facility] Mucus LM Ql (Urine sed)Order ed By: Gage Sharma on 08-11-2024 Mucus Ql (Urine sed) 0 SEEN /hpf [facility] Neutrophil percentageOrdered By: Gage Sharma on 08-11-2024 Neutrophils/100 WBC (Bld) 80.2 % High 47-70 [facility] Nitrite Test strip Ql (U)Ord ered By: Gage Sharma on 08-11-2024 Nitrite Ql (U) Negative Negative [facility] No Panel InformationOrdered By: Gage Sharma on 08-11-2024 38 U/L High <32 [facility] Platelet countOrdered By: Jose Maria Sharma on 08-11-2024 Platelets (Bld) [#/Vol] 433 10*3/uL 150-450 [facility] Potassium measurement (mass/ volume)Ordered By: Gage Sharma on 08-11-2024 Potassium (Unsp spec) [Mass/Vol] 4.2 mmol/L 3.3-5.1 [facility] ,Urineon 08-11-2024 Beta HCG ( test) Ql (U) Negative Normal [facility] Comment on above: Result Comment: Very dilute urine specimens, as indicated by a low specificgravity, may not contain u.s. representative levels of hCG.If is still suspected, a first morning urinespecimen should be collected 48 hours later and tested. Performed By: #### L 441.5422 ####[facility] [address] [place], [place], [address] Protein Test strip Ql (U)Ord ered By: Gage Sharma on 08-11-2024 Protein Ql (U) 15 mg/dl High Negative [facility] RBC Auto (Bld) [#/Vol]Ordere d By: Gage Sharma on 08-11-2024 RBC (Bld) [#/Vol] 4.26 10*6/uL 4.2-5.4 [facility] Serum creatinine measurement (mass/volume)Ordered By: Gage Sharma on 08-11-2024 Creatinine [Mass/Vol] 0.74 mg/dL 0.70-1.20 [facility] Serum globulin measurementOr dered By: Gage Sharma on 08-11-2024 Globulin (S) [Mass/Vol] 3.1 g/dL 2.2-4.2 [facility] Serum glucose measurement (m ass/volume)Ordered By: Gage Sharma on 08-11-2024 Glucose [Mass/Vol] 90 mg/dL 70-99 [facility] Serum or plasma alanine hair otransferase (ALT) measurementOrdered By: Gage Sharma on 08-11-2024 ALT [Catalytic activity/Vol] 32 U/L <35 [facility] Serum or plasma albumin leslie urement (mass/volume)Ordered By: Gage Batista on 08-11-2024 Albumin [Mass/Vol] 4.0 g/dL 3.5-5.0 [facility] Serum or plasma alkaline delfin sphatase measurementOrdered By: Gage Sharma on 08-11-2024 ALP [Catalytic activity/Vol] 173 U/L High 35-104 [facility] Serum or plasma calcium leslie urement (mass/volume)Ordered By: Gage Batista on 08-11-2024 Calcium [Mass/Vol] 9.5 mg/dL 7.6-11.0 [facility] Serum or plasma urea nitroge n measurement (mass/volume)Ordered By: Gage Sharma on 08-11-2024 Urea nitrogen [Mass/Vol] 9 mg/dL 4-19 [facility] Sodium levelOrdered By: Edd Sharma on 08-11-2024 Sodium [Moles/Vol] 137 mmol/L 133-145 [facility] Squamous epithelial cells de tection in urine sediment by light microscopyOrdered By: Gage Sharma on 08-11-2024 Epithelial cells.squamous LM Ql (Urine sed) 0-5 SEEN /hpf 5-10 [facility] Total proteinOrdered By: Zev Sharma on 08-11-2024 Protein [Mass/Vol] 7.2 g/dL 5.9-8.4 [facility] Urinalysis, Completeon 08-11 BACTERIA RARE Normal None Seen [facility] Comment on above: Order Comment: CLEAN CATCH Performed By: #### L 400.0001 ####[facility] [address] [place], [address] EPI,SQUAMOUS 0-5 SEEN Normal 5-10 [facility] Comment on above: Order Comment: CLEAN CATCH Performed By: #### L 400.0001 ####[facility] [address] [place], [address] RBC 0-5 SEEN Normal 0-5 [facility] Comment on above: Order Comment: CLEAN CATCH Performed By: #### L 400.0001 ####[facility] [address] [place], [address] WBC 0-5 SEEN Normal 0-5 [facility] Comment on above: Order Comment: CLEAN CATCH Performed By: #### L 400.0001 ####[facility] [address] [place], [address] Mucus Ql (Urine sed) 0 SEEN Normal [facility] Comment on above: Order Comment: CLEAN CATCH Performed By: #### L 400.0001 ####[facility] [address] [place], [address] Urine clarityOrdered By: Zev Sharma on 08-11-2024 Clarity (U) Sl. Cloudy Clear [facility] Urine color determinationOrd ered By: Gage Sharma on 08-11-2024 Color (U) Yellow Yellow [facility] Urine glucose detectionOrder ed By: Gage Sharma on 08-11-2024 Glucose Ql (U) Normal mg/dl Normal [facility] Urine leukocyte esterase det ection by dipstickOrdered By: Gage Sharma on 08-11-2024 Leukocyte esterase Test strip Ql (U) Negative Negative [facility] Urine pHOrdered By: Gage Keller on 08-11-2024 pH (U) 7.0 [pH] 5.0 - 8.0 [facility] Urine testOrdered By: Gage Sharma on 08-11-2024 HCG ( test) Ql (U) Negative [facility] Urine sediment bacteria coun t by microscopy (number/high power field)Ordered By: Gage Sharma on 08-11-2024 Bacteria LM.HPF (Urine sed) [#/Area] RARE /hpf None Seen [facility] Urine specific gravity measu rementOrdered By: Gage Sharma on 08-11-2024 Specific gravity (U) [Rel density] 1.010 1.002-1.03 0 [facility] Urine urobilinogen measureme ntOrdered By: Gage Sharma on 08-11-2024 Urobilinogen Ql (U) Normal mg/dl Normal [facility] White blood cell (WBC) count Ordered By: Gage Sharma on 08-11-2024 WBC (Bld) [#/Vol] 10.5 10*3/uL 4.4-11.0 [facility] White blood cell countOrdere d By: Gage Sharma on 08-11-2024 White blood cell count 0-5 SEEN /hpf 0-5 [facility] 36on 08-10-2024 36 S: Patient called 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 Denies recent injury, fever, dysuria, urinary retention, incontinence, weakness, numbness, or hematuria. R: Patient instructed to proceed to evaluation of severe, sudden onset pain. Patient verbalizes understanding, and states she will proceed to [facility], and that her SO will drive her. Reason for Disposition Patient sounds very sick or weak to the triager Protocols used: Back [id number]-[id number] Normal [facility] ANCAon 08-10-2024 Atypical pANCA <1:20 Normal Neg:<1:20 [facility] Comment on above: Order Comment: Test( s) 217300-Worrdl, Serum or Plasmawas developed and its performance characteristicsdetermined by [employer]. It has not been cleared or approvedby the Food and Drug Administration. Result Comment: The atypical pANCA pattern has been observed in asignificant percentage of patients with ulcerative colitis,primary sclerosing cholangitis and autoimmune hepatitis. Performed By: #### L 3100.6900, L101.9900, L500.4050, L501.6710, L501.9985, L503.5510, L3200.0500, L3100.5440, L5500.0410, L3100.3425, L503.6150, L3300.0100, L3100.1850, L504.2610, L100.9950, L3300.1200, L100.0100, L501.9520, L300.3900, L3410.2400, L3200.1100, L3400.0700, L503.6550, L3300.1800 ####[facility] [address] [place], [place], [id number] Cytoplasmic Ab <1:20 Normal Neg:<1:20 [facility] Comment on above: Order Comment: Test( s) 222989-Ncdlkc, Serum or Plasmawas developed and its performance characteristicsdetermined by [employer]. It has not been cleared or approvedby the Food and Drug Administration. Performed By: #### L 3100.6900, L101.9900, L500.4050, L501.6710, L501.9985, L503.5510, L3200.0500, L3100.5440, L5500.0410, L3100.3425, L503.6150, L3300.0100, L3100.1850, L504.2610, L100.9950, L3300.1200, L100.0100, L501.9520, L300.3900, L3410.2400, L3200.1100, L3400.0700, L503.6550, L3300.1800 ####[facility] [address] [place], [address] Perinuclear Ab. <1:20 Normal Neg:<1:20 [facility] Comment on above: Order Comment: Test( s) 499560-Dvnaro, Serum or Plasmawas developed and its performance characteristicsdetermined by [employer]. It has not been cleared or approvedby the Food and Drug Administration. Result Comment: The presence of positive fluorescence exhibiting P-ANCA orC-ANCA patterns alone is not specific for the diagnosis ofWegener's Granulomatosis (WG) or microscopic polyangiitis.Decisions about treatment should not be based solely onANCA IFA results. The [employer] Consensusrecommends follow up testing of positive sera with both ND-3 and MPO-ANCA enzyme immunoassays. As many as 5% serumsamples are positive only by EIA. Ref. AM J Clin Potvfp9747;111:507-513. Performed By: #### L 3100.6900, L101.9900, L500.4050, L501.6710, L501.9985, L503.5510, L3200.0500, L3100.5440, L5500.0410, L3100.3425, L503.6150, L3300.0100, L3100.1850, L504.2610, L100.9950, L3300.1200, L100.0100, L501.9520, L300.3900, L3410.2400, L3200.1100, L3400.0700, L503.6550, L3300.1800 ####[facility] [address] [place], [address] Angiotensin Convert Enzymeon 08-10-2024 ANGIOT-CONV.ENZ 62 U/L Normal 14-82 [facility] Comment on above: Order Comment: Test( s) 461135-Usdywn, Serum or Plasmawas developed and its performance characteristicsdetermined by [employer]. It has not been cleared or approvedby the Food and Drug Administration. Performed By: #### L 3100.6900, L101.9900, L500.4050, L501.6710, L501.9985, L503.5510, L3200.0500, L3100.5440, L5500.0410, L3100.3425, L503.6150, L3300.0100, L3100.1850, L504.2610, L100.9950, L3300.1200, L100.0100, L501.9520, L300.3900, L3410.2400, L3200.1100, L3400.0700, L503.6550, L3300.1800 ####[facility] [address], [address] Celiac Disease Profileon ENDOMYSIAL IGA Negative Normal Negative [facility] Comment on above: Order Comment: Test( s) 736015-Ndpheo, Serum or Plasmawas developed and its performance characteristicsdetermined by [employer]. It has not been cleared or approvedby the Food and Drug Administration. Performed By: #### L 3100.6900, L101.9900, L500.4050, L501.6710, L501.9985, L503.5510, L3200.0500, L3100.5440, L5500.0410, L3100.3425, L503.6150, L3300.0100, L3100.1850, L504.2610, L100.9950, L3300.1200, L100.0100, L501.9520, L300.3900, L3410.2400, L3200.1100, L3400.0700, L503.6550, L3300.1800 ####[facility] [address] [place], [address] tTG IGA <2 Normal 0-3 [facility] Comment on above: Order Comment: Test( s) 688477-Zbdntx, Serum or Plasmawas developed and its performance characteristicsdetermined by [employer]. It has not been cleared or approvedby the Food and Drug Administration. Result Comment: Nega tive 0 - 3 Weak Positive 4 - 10 Positive >10 Tissue Transglutaminase (tTG) has been identified as the endomysial antigen. Studies have demonstr- ated that endomysial IgA antibodies have over 99% specificity for gluten sensitive enteropathy. Performed By: #### L 3100.6900, L101.9900, L500.4050, L501.6710, L501.9985, L503.5510, L3200.0500, L3100.5440, L5500.0410, L3100.3425, L503.6150, L3300.0100, L3100.1850, L504.2610, L100.9950, L3300.1200, L100.0100, L501.9520, L300.3900, L3410.2400, L3200.1100, L3400.0700, L503.6550, L3300.1800 ####[facility] [address] [place], [place], [phone] Ceruloplasminon 08-10-2024 CERULOPLASMIN 42.4 mg/dL High 19.0-39.0 [facility] Comment on above: Order Comment: Test( s) 233903-Wtczpx, Serum or Plasmawas developed and its performance characteristicsdetermined by [employer]. It has not been cleared or approvedby the Food and Drug Administration. Performed By: #### L 3100.6900, L101.9900, L500.4050, L501.6710, L501.9985, L503.5510, L3200.0500, L3100.5440, L5500.0410, L3100.3425, L503.6150, L3300.0100, L3100.1850, L504.2610, L100.9950, L3300.1200, L100.0100, L501.9520, L300.3900, L3410.2400, L3200.1100, L3400.0700, L503.6550, L3300.1800 ####[facility] [address] [place], [place], [phone] Copper, Serum or Plasmaon COPPER, SERUM 159 ug/dL High 80-158 [facility] Comment on above: Order Comment: Test( s) 896661-Dtfmbd, Serum or Plasmawas developed and its performance characteristicsdetermined by [employer]. It has not been cleared or approvedby the Food and Drug Administration. Result Comment: Dete ction Limit = 5 Performed By: #### L 3100.6900, L101.9900, L500.4050, L501.6710, L501.9985, L503.5510, L3200.0500, L3100.5440, L5500.0410, L3100.3425, L503.6150, L3300.0100, L3100.1850, L504.2610, L100.9950, L3300.1200, L100.0100, L501.9520, L300.3900, L3410.2400, L3200.1100, L3400.0700, L503.6550, L3300.1800 ####[facility] [address] [place], [place], [phone] Gastrin, Serumon 08-10-2024 GASTRIN 17 pg/mL Normal 0-115 [facility] Comment on above: Order Comment: Test( s) 347436-Yerrhk, Serum or Plasmawas developed and its performance characteristicsdetermined by [employer]. It has not been cleared or approvedby the Food and Drug Administration. Result Comment: [facility] Immulite 2000 Immunochemiluminometric assay (ICMA)Values obtained with different assay methods or kits cannotbe used interchangeably. Results cannot be interpreted asabsolute evidence of the presence or absence of malignantdisease. Performed By: #### L 3100.6900, L101.9900, L500.4050, L501.6710, L501.9985, L503.5510, L3200.0500, L3100.5440, L5500.0410, L3100.3425, L503.6150, L3300.0100, L3100.1850, L504.2610, L100.9950, L3300.1200, L100.0100, L501.9520, L300.3900, L3410.2400, L3200.1100, L3400.0700, L503.6550, L3300.1800 ####[facility] [address] [place], [address] Giardia Lamblia, Stool EIAon 08-10-2024 Giardia Stool Negative Normal Negative [facility] Comment on above: Result Comment: Perf ormed at: [address] [id number] Director: Victor M Hargrove PhD, Phone: [phone] Performed By: #### L 7000.0700, M100.6796, M100.0605, M100.637, L7400.3300, M600.5000 ####[facility] [address] [place], [place], [phone] Haptoglobinon 08-10-2024 HAPTOGLOBIN 373 mg/dL High 42-296 [facility] Comment on above: Order Comment: Test( s) 764500-Jrhnyn, Serum or Plasmawas developed and its performance characteristicsdetermined by [employer]. It has not been cleared or approvedby the Food and Drug Administration. Result Comment: Perf ormed at: [facility] [address] [id number] Director: Victor M Hargrove PhD, Phone: [phone] at: [facility] [address] [place], [place] [id number] Director: Isac Kemp MD, Phone: [phone] Performed By: #### L 3100.6900, L101.9900, L500.4050, L501.6710, L501.9985, L503.5510, L3200.0500, L3100.5440, L5500.0410, L3100.3425, L503.6150, L3300.0100, L3100.1850, L504.2610, L100.9950, L3300.1200, L100.0100, L501.9520, L300.3900, L3410.2400, L3200.1100, L3400.0700, L503.6550, L3300.1800 ####[facility] [address] [facility] [place], [address] DAVID + Protein Elect, Serumon 08-10-2024 Albumin [Mass/Vol] 3.4 g/dL Normal 2.9-4.4 [facility] Comment on above: Order Comment: Test( s) 719266-Peqyki, Serum or Plasmawas developed and its performance characteristicsdetermined by [employer]. It has not been cleared or approvedby the Food and Drug Administration.N Performed By: #### L 3100.6900, L101.9900, L500.4050, L501.6710, L501.9985, L503.5510, L3200.0500, L3100.5440, L5500.0410, L3100.3425, L503.6150, L3300.0100, L3100.1850, L504.2610, L100.9950, L3300.1200, L100.0100, L501.9520, L300.3900, L3410.2400, L3200.1100, L3400.0700, L503.6550, L3300.1800 ####[facility] [address] [place], [address] Albumin/Globulin [Mass ratio] 1.0 {ratio} Normal 0.7-1.7 [facility] Comment on above: Order Comment: Test( s) 231870-Tykhlt, Serum or Plasmawas developed and its performance characteristicsdetermined by [employer]. It has not been cleared or approvedby the Food and Drug Administration.N Performed By: #### L 3100.6900, L101.9900, L500.4050, L501.6710, L501.9985, L503.5510, L3200.0500, L3100.5440, L5500.0410, L3100.3425, L503.6150, L3300.0100, L3100.1850, L504.2610, L100.9950, L3300.1200, L100.0100, L501.9520, L300.3900, L3410.2400, L3200.1100, L3400.0700, L503.6550, L3300.1800 ####[facility] [address] [facility] [place], [address] RWIWA-7-NCNN 0.2 g/dL Normal 0.0-0.4 [facility] Comment on above: Order Comment: Test( s) 403381-Wkqkep, Serum or Plasmawas developed and its performance characteristicsdetermined by [employer]. It has not been cleared or approvedby the Food and Drug Administration.N Performed By: #### L 3100.6900, L101.9900, L500.4050, L501.6710, L501.9985, L503.5510, L3200.0500, L3100.5440, L5500.0410, L3100.3425, L503.6150, L3300.0100, L3100.1850, L504.2610, L100.9950, L3300.1200, L100.0100, L501.9520, L300.3900, L3410.2400, L3200.1100, L3400.0700, L503.6550, L3300.1800 ####[facility] [address] [facility] [place], [address] ZHBFX-9-CLPQ 1.1 g/dL High 0.4-1.0 [facility] Comment on above: Order Comment: Test( s) 302926-Uhdvfv, Serum or Plasmawas developed and its performance characteristicsdetermined by [employer]. It has not been cleared or approvedby the Food and Drug Administration.N Performed By: #### L 3100.6900, L101.9900, L500.4050, L501.6710, L501.9985, L503.5510, L3200.0500, L3100.5440, L5500.0410, L3100.3425, L503.6150, L3300.0100, L3100.1850, L504.2610, L100.9950, L3300.1200, L100.0100, L501.9520, L300.3900, L3410.2400, L3200.1100, L3400.0700, L503.6550, L3300.1800 ####[facility] [address] [facility] [place], [address] BETA GLOBULIN 1.2 g/dL Normal 0.7-1.3 [facility] Comment on above: Order Comment: Test( s) 521358-Htdcay, Serum or Plasmawas developed and its performance characteristicsdetermined by [employer]. It has not been cleared or approvedby the Food and Drug Administration.N Performed By: #### L 3100.6900, L101.9900, L500.4050, L501.6710, L501.9985, L503.5510, L3200.0500, L3100.5440, L5500.0410, L3100.3425, L503.6150, L3300.0100, L3100.1850, L504.2610, L100.9950, L3300.1200, L100.0100, L501.9520, L300.3900, L3410.2400, L3200.1100, L3400.0700, L503.6550, L3300.1800 ####[facility] [address] [facility] [place], [address] GAMMA GLOBULIN 1.0 g/dL Normal 0.4-1.8 [facility] Comment on above: Order Comment: Test( s) 980698-Frqwmm, Serum or Plasmawas developed and its performance characteristicsdetermined by [employer]. It has not been cleared or approvedby the Food and Drug Administration.N Performed By: #### L 3100.6900, L101.9900, L500.4050, L501.6710, L501.9985, L503.5510, L3200.0500, L3100.5440, L5500.0410, L3100.3425, L503.6150, L3300.0100, L3100.1850, L504.2610, L100.9950, L3300.1200, L100.0100, L501.9520, L300.3900, L3410.2400, L3200.1100, L3400.0700, L503.6550, L3300.1800 ####[facility] [address] [facility] [place], [place], [address] Globulin (S) [Mass/Vol] 3.5 g/dL Normal 2.2-3.9 [facility] Comment on above: Order Comment: Test( s) 058926-Uovqlt, Serum or Plasmawas developed and its performance characteristicsdetermined by [employer]. It has not been cleared or approvedby the Food and Drug Administration.N Performed By: #### L 3100.6900, L101.9900, L500.4050, L501.6710, L501.9985, L503.5510, L3200.0500, L3100.5440, L5500.0410, L3100.3425, L503.6150, L3300.0100, L3100.1850, L504.2610, L100.9950, L3300.1200, L100.0100, L501.9520, L300.3900, L3410.2400, L3200.1100, L3400.0700, L503.6550, L3300.1800 ####[facility] [address] [facility] [place], [place], [id number] DAVID RESULT,S Comment Normal . [facility] Comment on above: Order Comment: Test( s) 097270-Yvxjto, Serum or Plasmawas developed and its performance characteristicsdetermined by [employer]. It has not been cleared or approvedby the Food and Drug Administration.N Result Comment: No m onoclonality detected. Performed By: #### L 3100.6900, L101.9900, L500.4050, L501.6710, L501.9985, L503.5510, L3200.0500, L3100.5440, L5500.0410, L3100.3425, L503.6150, L3300.0100, L3100.1850, L504.2610, L100.9950, L3300.1200, L100.0100, L501.9520, L300.3900, L3410.2400, L3200.1100, L3400.0700, L503.6550, L3300.1800 ####[facility] [address] [place], [place], [id number] IMMUNOGLOB A QN 134 mg/dL Normal 87-352 [facility] Comment on above: Order Comment: Test( s) 286832-Gtmdpn, Serum or Plasmawas developed and its performance characteristicsdetermined by [employer]. It has not been cleared or approvedby the Food and Drug Administration.N Performed By: #### L 3100.6900, L101.9900, L500.4050, L501.6710, L501.9985, L503.5510, L3200.0500, L3100.5440, L5500.0410, L3100.3425, L503.6150, L3300.0100, L3100.1850, L504.2610, L100.9950, L3300.1200, L100.0100, L501.9520, L300.3900, L3410.2400, L3200.1100, L3400.0700, L503.6550, L3300.1800 ####[facility] [address] [place], [place], [id number] IMMUNOGLOB M QN 217 mg/dL Normal 26-217 [facility] Comment on above: Order Comment: Test( s) 607396-Cbimip, Serum or Plasmawas developed and its performance characteristicsdetermined by [employer]. It has not been cleared or approvedby the Food and Drug Administration.N Performed By: #### L 3100.6900, L101.9900, L500.4050, L501.6710, L501.9985, L503.5510, L3200.0500, L3100.5440, L5500.0410, L3100.3425, L503.6150, L3300.0100, L3100.1850, L504.2610, L100.9950, L3300.1200, L100.0100, L501.9520, L300.3900, L3410.2400, L3200.1100, L3400.0700, L503.6550, L3300.1800 ####[facility] [address] [place], [place], [id number] M-Jayme Not Observed Normal Not Observed [facility] Comment on above: Order Comment: Test( s) 107050-Kjnozl, Serum or Plasmawas developed and its performance characteristicsdetermined by [employer]. It has not been cleared or approvedby the Food and Drug Administration.N Performed By: #### L 3100.6900, L101.9900, L500.4050, L501.6710, L501.9985, L503.5510, L3200.0500, L3100.5440, L5500.0410, L3100.3425, L503.6150, L3300.0100, L3100.1850, L504.2610, L100.9950, L3300.1200, L100.0100, L501.9520, L300.3900, L3410.2400, L3200.1100, L3400.0700, L503.6550, L3300.1800 ####[facility] [address] [place], [place], [id number] NOTE: Comment Normal . [facility] Comment on above: Order Comment: Test( s) 321183-Chfwec, Serum or Plasmawas developed and its performance characteristicsdetermined by [employer]. It has not been cleared or approvedby the Food and Drug Administration.N Result Comment: Prot ein electrophoresis scan will follow via computer,mail, or communication consultant delivery. Performed By: #### L 3100.6900, L101.9900, L500.4050, L501.6710, L501.9985, L503.5510, L3200.0500, L3100.5440, L5500.0410, L3100.3425, L503.6150, L3300.0100, L3100.1850, L504.2610, L100.9950, L3300.1200, L100.0100, L501.9520, L300.3900, L3410.2400, L3200.1100, L3400.0700, L503.6550, L3300.1800 ####[facility] [address] [facility] [place], [place], [phone] Protein [Mass/Vol] 6.9 g/dL Normal 6.0-8.5 [facility] Comment on above: Order Comment: Test( s) 303770-Hwiljp, Serum or Plasmawas developed and its performance characteristicsdetermined by [employer]. It has not been cleared or approvedby the Food and Drug Administration.N Performed By: #### L 3100.6900, L101.9900, L500.4050, L501.6710, L501.9985, L503.5510, L3200.0500, L3100.5440, L5500.0410, L3100.3425, L503.6150, L3300.0100, L3100.1850, L504.2610, L100.9950, L3300.1200, L100.0100, L501.9520, L300.3900, L3410.2400, L3200.1100, L3400.0700, L503.6550, L3300.1800 ####[facility] [address] [place], [place], [phone] IgG Subclasseson 08-10-2024 IgG, SUBCLASS 1 509 mg/dL Normal 248-810 [facility] Comment on above: Order Comment: Test( s) 990000-Mbqgwa, Serum or Plasmawas developed and its performance characteristicsdetermined by [employer]. It has not been cleared or approvedby the Food and Drug Administration. Performed By: #### L 3100.6900, L101.9900, L500.4050, L501.6710, L501.9985, L503.5510, L3200.0500, L3100.5440, L5500.0410, L3100.3425, L503.6150, L3300.0100, L3100.1850, L504.2610, L100.9950, L3300.1200, L100.0100, L501.9520, L300.3900, L3410.2400, L3200.1100, L3400.0700, L503.6550, L3300.1800 ####[facility] [address] [facility] [place], [place], [id number] IgG, SUBCLASS 2 168 mg/dL Normal 130-555 [facility] Comment on above: Order Comment: Test( s) 058212-Drwwtm, Serum or Plasmawas developed and its performance characteristicsdetermined by [employer]. It has not been cleared or approvedby the Food and Drug Administration. Performed By: #### L 3100.6900, L101.9900, L500.4050, L501.6710, L501.9985, L503.5510, L3200.0500, L3100.5440, L5500.0410, L3100.3425, L503.6150, L3300.0100, L3100.1850, L504.2610, L100.9950, L3300.1200, L100.0100, L501.9520, L300.3900, L3410.2400, L3200.1100, L3400.0700, L503.6550, L3300.1800 ####[facility] [address] [facility] [place], [address] IgG, SUBCLASS 3 73 mg/dL Normal 15-102 [facility] Comment on above: Order Comment: Test( s) 837612-Yudcdh, Serum or Plasmawas developed and its performance characteristicsdetermined by [employer]. It has not been cleared or approvedby the Food and Drug Administration. Performed By: #### L 3100.6900, L101.9900, L500.4050, L501.6710, L501.9985, L503.5510, L3200.0500, L3100.5440, L5500.0410, L3100.3425, L503.6150, L3300.0100, L3100.1850, L504.2610, L100.9950, L3300.1200, L100.0100, L501.9520, L300.3900, L3410.2400, L3200.1100, L3400.0700, L503.6550, L3300.1800 ####[facility] [address] [facility] [place], [address] IgG, SUBCLASS 4 17 mg/dL Normal 2-96 [facility] Comment on above: Order Comment: Test( s) 323846-Nygxhi, Serum or Plasmawas developed and its performance characteristicsdetermined by [employer]. It has not been cleared or approvedby the Food and Drug Administration. Performed By: #### L 3100.6900, L101.9900, L500.4050, L501.6710, L501.9985, L503.5510, L3200.0500, L3100.5440, L5500.0410, L3100.3425, L503.6150, L3300.0100, L3100.1850, L504.2610, L100.9950, L3300.1200, L100.0100, L501.9520, L300.3900, L3410.2400, L3200.1100, L3400.0700, L503.6550, L3300.1800 ####[facility] [address] [facility] [place], [address] IGG,QUANT 945 mg/dL Normal 586-1602 [facility] Comment on above: Order Comment: Test( s) 911471-Wkmgrh, Serum or Plasmawas developed and its performance characteristicsdetermined by [employer]. It has not been cleared or approvedby the Food and Drug Administration. Performed By: #### L 3100.6900, L101.9900, L500.4050, L501.6710, L501.9985, L503.5510, L3200.0500, L3100.5440, L5500.0410, L3100.3425, L503.6150, L3300.0100, L3100.1850, L504.2610, L100.9950, L3300.1200, L100.0100, L501.9520, L300.3900, L3410.2400, L3200.1100, L3400.0700, L503.6550, L3300.1800 ####[facility] [address] [facility]. [place], [place], [address] Immunoglobulins G/A/M/Librado IMMUNOGLOB E QN 122 IU/mL Normal 6-495 [facility] Comment on above: Order Comment: Test( s) 569081-Mklegw, Serum or Plasmawas developed and its performance characteristicsdetermined by [employer]. It has not been cleared or approvedby the Food and Drug Administration.N Performed By: #### L 3100.6900, L101.9900, L500.4050, L501.6710, L501.9985, L503.5510, L3200.0500, L3100.5440, L5500.0410, L3100.3425, L503.6150, L3300.0100, L3100.1850, L504.2610, L100.9950, L3300.1200, L100.0100, L501.9520, L300.3900, L3410.2400, L3200.1100, L3400.0700, L503.6550, L3300.1800 ####[facility] [address] [facility] [place], [address] Amylaseon 08-09-2024 TAWANNA 19 U/L Low 28-100 [facility] Comment on above: Order Comment: ADD O NTO YESTERDAYS BLOOD Performed By: #### L 501.2450, L501.2400 ####[facility] [address] [place], [address] CDIFF (PCR)on 08-09-2024 CDIFF Pending 027 027 NAP1-B1 Presumptive Negative *for epidemiolologic???use C. Diff PCR Negative- No toxigenic C. Diff Detected Normal [facility] Comment on above: Performed By: #### L 7000.0700, M100.6796, M100.0605, M100.637, L7400.3300, M600.5000 ####[facility] [address] [place], [address] Calprotectin stoolOrdered By : Bárbara Ureña on 08-09-2024 Calprotectin stool 13 ug/g 0-120 [facility] Clostridium difficile detect ion by polymerase chain reactionOrdered By: Bárbara Ureña on 08-09-2024 C. difficile DNA BIMAL+probe Ql (Unsp spec) [facility] ENTERIC PATHOGEN PANEL STOOL on 08-09-2024 EP PANEL Normal [facility] Comment on above: Performed By: #### L 7000.0700, M100.6796, M100.0605, M100.637, L7400.3300, M600.5000 ####[facility] [address] [place], [address] Giardia lamblia ag stool EIA Ordered By: Bárbara Ureña on 08-09-2024 G. lamblia Ag IA Ql (Stl) Negative Negative [facility] Lipaseon 08-09-2024 Lipase [Catalytic activity/Vol] 24 U/L Normal 13-75 [facility] Comment on above: Order Comment: ADD O NTO YESTERDAYS BLOOD Result Comment: Liam rader note:LIPASE revised reference range effective 22.New Lipase methodology. Expected to produce lower valuesthan the previous assay method.NEW Reference Range: 13 - 75 U/L Performed By: #### L 501.2450, L501.2400 ####[facility] [address] [place], [address] Serum or plasma amylase leslie urement (enzymatic activity/volume)Ordered By: Quang Myles on 08-09-2024 Amylase [Catalytic activity/Vol] 19 U/L Low 28-100 [facility] Stool Lactoferrin/WBCon 07-13 WBCST Normal Reference Ran ge = Negative Fecal WBC Lactoferrin Negative: No Fecal WBC Lactoferrin present Normal [facility] Comment on above: Performed By: #### L 7000.0700, M100.6796, M100.0605, M100.637, L7400.3300, M600.5000 ####[facility] [address] [facility] [place], [address] Stool lactoferrin detection by immunoassayOrdered By: Bárbara Ureña on 08-09-2024 Lactoferrin IA Ql (Stl) [facility] Absolute lymphocyte countOrd ered By: Quang Myles on 08-08-2024 Lymphocytes Auto (Unsp spec) [#/Vol] 1.28 10*3/uL 0.83-4.51 [facility] Albumin Elph [Mass/Vol]Order ed By: Quang Myles on 08-08-2024 Albumin [Mass/Vol] 3.4 g/dL 2.9-4.4 [facility] Ammoniaon 08-08-2024 Ammonia (P) [Moles/Vol] 36.2 umol/L Normal [facility] Comment on above: Performed By: #### L 3100.6900, L101.9900, L500.4050, L501.6710, L501.9985, L503.5510, L3200.0500, L3100.5440, L5500.0410, L3100.3425, L503.6150, L3300.0100, L3100.1850, L504.2610, L100.9950, L3300.1200, L100.0100, L501.9520, L300.3900, L3410.2400, L3200.1100, L3400.0700, L503.6550, L3300.1800 ####[facility] [address] [place], [address] Anion gap in Serum or Plasma Ordered By: Quang Myles on 08-08-2024 Anion gap [Moles/Vol] 11 mmol/L 5-15 [facility] Automated lymphocyte count a s percentage of total leukocytesOrdered By: Quanglawrence Myles on 08-08-2024 Lymphocytes/100 WBC Auto (Unsp spec) 13.9 % Low 19- [facility] BUN/creatinine ratioOrdered By: Quanglawrence Myles on 08-08-2024 Urea nitrogen/Creatinine [Mass ratio] 12.1 mg/mg 10- [facility] Basophil percentageOrdered B y: Quang Myles on 08-08-2024 Basophils/100 WBC (Bld) 0.9 % 0-1 [facility] Bilirubin, totalOrdered By: Quang Myles on 08-08-2024 Bilirubin [Mass/Vol] 0.23 mg/dL 0.00-1.30 [facility] CBC W/Diff, Automatedon 07-13 Absolute Lymph 1.28 X10 3/uL Normal 0.83-4.51 [facility] Comment on above: Performed By: #### L 3100.6900, L101.9900, L500.4050, L501.6710, L501.9985, L503.5510, L3200.0500, L3100.5440, L5500.0410, L3100.3425, L503.6150, L3300.0100, L3100.1850, L504.2610, L100.9950, L3300.1200, L100.0100, L501.9520, L300.3900, L3410.2400, L3200.1100, L3400.0700, L503.6550, L3300.1800 ####[facility] [address] [place], [address] Absolute Neut 7.0 X10 3/uL Normal 2.0-7.7 [facility] Comment on above: Performed By: #### L 3100.6900, L101.9900, L500.4050, L501.6710, L501.9985, L503.5510, L3200.0500, L3100.5440, L5500.0410, L3100.3425, L503.6150, L3300.0100, L3100.1850, L504.2610, L100.9950, L3300.1200, L100.0100, L501.9520, L300.3900, L3410.2400, L3200.1100, L3400.0700, L503.6550, L3300.1800 ####[facility] [address] [place], [address] Basophils/100 WBC (Bld) 0.9 % Normal 0-1 [facility] Comment on above: Performed By: #### L 3100.6900, L101.9900, L500.4050, L501.6710, L501.9985, L503.5510, L3200.0500, L3100.5440, L5500.0410, L3100.3425, L503.6150, L3300.0100, L3100.1850, L504.2610, L100.9950, L3300.1200, L100.0100, L501.9520, L300.3900, L3410.2400, L3200.1100, L3400.0700, L503.6550, L3300.1800 ####[facility] [address] [place], [address] Eosinophils/100 WBC (Bld) 3.8 % Normal 0-5 [facility] Comment on above: Performed By: #### L 3100.6900, L101.9900, L500.4050, L501.6710, L501.9985, L503.5510, L3200.0500, L3100.5440, L5500.0410, L3100.3425, L503.6150, L3300.0100, L3100.1850, L504.2610, L100.9950, L3300.1200, L100.0100, L501.9520, L300.3900, L3410.2400, L3200.1100, L3400.0700, L503.6550, L3300.1800 ####[facility] [address] [facility] [place], [place], [id number] Erythrocyte distribution width (RBC) [Ratio] 13.1 % Normal 11.6-14.6 [facility] Comment on above: Performed By: #### L 3100.6900, L101.9900, L500.4050, L501.6710, L501.9985, L503.5510, L3200.0500, L3100.5440, L5500.0410, L3100.3425, L503.6150, L3300.0100, L3100.1850, L504.2610, L100.9950, L3300.1200, L100.0100, L501.9520, L300.3900, L3410.2400, L3200.1100, L3400.0700, L503.6550, L3300.1800 ####[facility] [address] [place], [address] Hematocrit (Bld) [Volume fraction] 44.1 % Normal 37-47 [facility] Comment on above: Performed By: #### L 3100.6900, L101.9900, L500.4050, L501.6710, L501.9985, L503.5510, L3200.0500, L3100.5440, L5500.0410, L3100.3425, L503.6150, L3300.0100, L3100.1850, L504.2610, L100.9950, L3300.1200, L100.0100, L501.9520, L300.3900, L3410.2400, L3200.1100, L3400.0700, L503.6550, L3300.1800 ####[facility] [address] [place], [place], [id number] Hemoglobin (Bld) [Mass/Vol] 14.7 g/dL Normal 12.0-15.0 [facility] Comment on above: Performed By: #### L 3100.6900, L101.9900, L500.4050, L501.6710, L501.9985, L503.5510, L3200.0500, L3100.5440, L5500.0410, L3100.3425, L503.6150, L3300.0100, L3100.1850, L504.2610, L100.9950, L3300.1200, L100.0100, L501.9520, L300.3900, L3410.2400, L3200.1100, L3400.0700, L503.6550, L3300.1800 ####[facility] [address] [facility] [place], [place], [address] IG% 0.500 Normal 0.0-0.9 [facility] Comment on above: Result Comment: IG% - Immature Granulocytes (promyelocytes, myelocytes andmetamyelocytes) > 1% indicates that a LEFT SHIFT is Present. Performed By: #### L 3100.6900, L101.9900, L500.4050, L501.6710, L501.9985, L503.5510, L3200.0500, L3100.5440, L5500.0410, L3100.3425, L503.6150, L3300.0100, L3100.1850, L504.2610, L100.9950, L3300.1200, L100.0100, L501.9520, L300.3900, L3410.2400, L3200.1100, L3400.0700, L503.6550, L3300.1800 ####[facility] [address] [place], [address] Lymphocytes/100 WBC (Bld) 13.9 % Low 19-41 [facility] Comment on above: Performed By: #### L 3100.6900, L101.9900, L500.4050, L501.6710, L501.9985, L503.5510, L3200.0500, L3100.5440, L5500.0410, L3100.3425, L503.6150, L3300.0100, L3100.1850, L504.2610, L100.9950, L3300.1200, L100.0100, L501.9520, L300.3900, L3410.2400, L3200.1100, L3400.0700, L503.6550, L3300.1800 ####[facility] [address] [facility]. [place], [place], [phone] MCH (RBC) [Entitic mass] 32.0 pg Normal 27.0-32.0 [facility] Comment on above: Performed By: #### L 3100.6900, L101.9900, L500.4050, L501.6710, L501.9985, L503.5510, L3200.0500, L3100.5440, L5500.0410, L3100.3425, L503.6150, L3300.0100, L3100.1850, L504.2610, L100.9950, L3300.1200, L100.0100, L501.9520, L300.3900, L3410.2400, L3200.1100, L3400.0700, L503.6550, L3300.1800 ####[facility] [address] [place], [place], [phone] MCHC (RBC) [Mass/Vol] 33.3 g/dL Normal 32-36 [facility] Comment on above: Performed By: #### L 3100.6900, L101.9900, L500.4050, L501.6710, L501.9985, L503.5510, L3200.0500, L3100.5440, L5500.0410, L3100.3425, L503.6150, L3300.0100, L3100.1850, L504.2610, L100.9950, L3300.1200, L100.0100, L501.9520, L300.3900, L3410.2400, L3200.1100, L3400.0700, L503.6550, L3300.1800 ####[facility] [address] [place], [place], [phone] MCV (RBC) [Entitic vol] 95.9 fL Normal 81-99 [facility] Comment on above: Performed By: #### L 3100.6900, L101.9900, L500.4050, L501.6710, L501.9985, L503.5510, L3200.0500, L3100.5440, L5500.0410, L3100.3425, L503.6150, L3300.0100, L3100.1850, L504.2610, L100.9950, L3300.1200, L100.0100, L501.9520, L300.3900, L3410.2400, L3200.1100, L3400.0700, L503.6550, L3300.1800 ####[facility] [address] [facility] [place], [place], [phone] Monocytes/100 WBC (Bld) 5.4 % Normal 0-10 [facility] Comment on above: Performed By: #### L 3100.6900, L101.9900, L500.4050, L501.6710, L501.9985, L503.5510, L3200.0500, L3100.5440, L5500.0410, L3100.3425, L503.6150, L3300.0100, L3100.1850, L504.2610, L100.9950, L3300.1200, L100.0100, L501.9520, L300.3900, L3410.2400, L3200.1100, L3400.0700, L503.6550, L3300.1800 ####[facility] [address] [place], [address] Neutrophils/100 WBC (Bld) 75.5 % High 47-70 [facility] Comment on above: Performed By: #### L 3100.6900, L101.9900, L500.4050, L501.6710, L501.9985, L503.5510, L3200.0500, L3100.5440, L5500.0410, L3100.3425, L503.6150, L3300.0100, L3100.1850, L504.2610, L100.9950, L3300.1200, L100.0100, L501.9520, L300.3900, L3410.2400, L3200.1100, L3400.0700, L503.6550, L3300.1800 ####[facility] [address] [facility] [address] [place], [place], [phone] Nucleated RBC (Bld) [#/Vol] 0 10*3/uL Normal 0-5 [facility] Comment on above: Performed By: #### L 3100.6900, L101.9900, L500.4050, L501.6710, L501.9985, L503.5510, L3200.0500, L3100.5440, L5500.0410, L3100.3425, L503.6150, L3300.0100, L3100.1850, L504.2610, L100.9950, L3300.1200, L100.0100, L501.9520, L300.3900, L3410.2400, L3200.1100, L3400.0700, L503.6550, L3300.1800 ####[facility] [address] [facility] [place], [address] Platelet mean volume (Bld) [Entitic vol] 9.9 fL Normal 6.2-12.0 [facility] Comment on above: Performed By: #### L 3100.6900, L101.9900, L500.4050, L501.6710, L501.9985, L503.5510, L3200.0500, L3100.5440, L5500.0410, L3100.3425, L503.6150, L3300.0100, L3100.1850, L504.2610, L100.9950, L3300.1200, L100.0100, L501.9520, L300.3900, L3410.2400, L3200.1100, L3400.0700, L503.6550, L3300.1800 ####[facility] [address] [place], [place], [phone] Platelets (Bld) [#/Vol] 375 10*3/uL Normal 150-450 [facility] Comment on above: Performed By: #### L 3100.6900, L101.9900, L500.4050, L501.6710, L501.9985, L503.5510, L3200.0500, L3100.5440, L5500.0410, L3100.3425, L503.6150, L3300.0100, L3100.1850, L504.2610, L100.9950, L3300.1200, L100.0100, L501.9520, L300.3900, L3410.2400, L3200.1100, L3400.0700, L503.6550, L3300.1800 ####[facility] [address] [facility] [place], [address] RBC (Bld) [#/Vol] 4.60 10*6/uL Normal 4.2-5.4 [facility] Comment on above: Performed By: #### L 3100.6900, L101.9900, L500.4050, L501.6710, L501.9985, L503.5510, L3200.0500, L3100.5440, L5500.0410, L3100.3425, L503.6150, L3300.0100, L3100.1850, L504.2610, L100.9950, L3300.1200, L100.0100, L501.9520, L300.3900, L3410.2400, L3200.1100, L3400.0700, L503.6550, L3300.1800 ####[facility] [address] [place], [place], [phone] RDW SD 46.1 fl High 35.1-43.9 [facility] Comment on above: Performed By: #### L 3100.6900, L101.9900, L500.4050, L501.6710, L501.9985, L503.5510, L3200.0500, L3100.5440, L5500.0410, L3100.3425, L503.6150, L3300.0100, L3100.1850, L504.2610, L100.9950, L3300.1200, L100.0100, L501.9520, L300.3900, L3410.2400, L3200.1100, L3400.0700, L503.6550, L3300.1800 ####[facility] [address] [place], [place], [phone] WBC (Bld) [#/Vol] 9.2 10*3/uL Normal 4.4-11.0 [facility] Comment on above: Performed By: #### L 3100.6900, L101.9900, L500.4050, L501.6710, L501.9985, L503.5510, L3200.0500, L3100.5440, L5500.0410, L3100.3425, L503.6150, L3300.0100, L3100.1850, L504.2610, L100.9950, L3300.1200, L100.0100, L501.9520, L300.3900, L3410.2400, L3200.1100, L3400.0700, L503.6550, L3300.1800 ####[facility] [address] [place], [place], [phone] CRPon 08-08-2024 C-REACTIVE PROT 16.80 mg/L High 0.0-3.0 [facility] Comment on above: Performed By: #### L 3100.6900, L101.9900, L500.4050, L501.6710, L501.9985, L503.5510, L3200.0500, L3100.5440, L5500.0410, L3100.3425, L503.6150, L3300.0100, L3100.1850, L504.2610, L100.9950, L3300.1200, L100.0100, L501.9520, L300.3900, L3410.2400, L3200.1100, L3400.0700, L503.6550, L3300.1800 ####[facility] [address] [place], [place], [address] Carbon dioxide, total [Moles /volume] in Central venous bloodOrdered By: Quang Myles on 08-08-2024 CO2 [Moles/Vol] 21.1 mmol/L 21.0-32.0 [facility] Chloride assayOrdered By: Ra treva Myles on 08-08-2024 Chloride [Moles/Vol] 106 mmol/L 98-108 [facility] Comprehensive Metabolic Prof ilon 08-08-2024 Albumin [Mass/Vol] 3.9 g/dL Normal 3.5-5.0 [facility] Comment on above: Performed By: #### L 3100.6900, L101.9900, L500.4050, L501.6710, L501.9985, L503.5510, L3200.0500, L3100.5440, L5500.0410, L3100.3425, L503.6150, L3300.0100, L3100.1850, L504.2610, L100.9950, L3300.1200, L100.0100, L501.9520, L300.3900, L3410.2400, L3200.1100, L3400.0700, L503.6550, L3300.1800 ####[facility] [address] [place], [place], [id number] Albumin/Globulin [Mass ratio] 1.1 {ratio} Normal 0.9-2.4 [facility] Comment on above: Performed By: #### L 3100.6900, L101.9900, L500.4050, L501.6710, L501.9985, L503.5510, L3200.0500, L3100.5440, L5500.0410, L3100.3425, L503.6150, L3300.0100, L3100.1850, L504.2610, L100.9950, L3300.1200, L100.0100, L501.9520, L300.3900, L3410.2400, L3200.1100, L3400.0700, L503.6550, L3300.1800 ####[facility] [address] [place], [address] ALK PHOS 155 U/L High 35-104 [facility] Comment on above: Performed By: #### L 3100.6900, L101.9900, L500.4050, L501.6710, L501.9985, L503.5510, L3200.0500, L3100.5440, L5500.0410, L3100.3425, L503.6150, L3300.0100, L3100.1850, L504.2610, L100.9950, L3300.1200, L100.0100, L501.9520, L300.3900, L3410.2400, L3200.1100, L3400.0700, L503.6550, L3300.1800 ####[facility] [address] [place], [address] ALT [Catalytic activity/Vol] 37 U/L High <=34 [facility] Comment on above: Performed By: #### L 3100.6900, L101.9900, L500.4050, L501.6710, L501.9985, L503.5510, L3200.0500, L3100.5440, L5500.0410, L3100.3425, L503.6150, L3300.0100, L3100.1850, L504.2610, L100.9950, L3300.1200, L100.0100, L501.9520, L300.3900, L3410.2400, L3200.1100, L3400.0700, L503.6550, L3300.1800 ####[facility] [address] [facility] [place], [place], [id number] AST [Catalytic activity/Vol] 43 U/L High <=31 [facility] Comment on above: Performed By: #### L 3100.6900, L101.9900, L500.4050, L501.6710, L501.9985, L503.5510, L3200.0500, L3100.5440, L5500.0410, L3100.3425, L503.6150, L3300.0100, L3100.1850, L504.2610, L100.9950, L3300.1200, L100.0100, L501.9520, L300.3900, L3410.2400, L3200.1100, L3400.0700, L503.6550, L3300.1800 ####[facility] [address] [place], [place], [id number] Bilirubin [Mass/Vol] 0.23 mg/dL Normal 0.00-1.30 [facility] Comment on above: Performed By: #### L 3100.6900, L101.9900, L500.4050, L501.6710, L501.9985, L503.5510, L3200.0500, L3100.5440, L5500.0410, L3100.3425, L503.6150, L3300.0100, L3100.1850, L504.2610, L100.9950, L3300.1200, L100.0100, L501.9520, L300.3900, L3410.2400, L3200.1100, L3400.0700, L503.6550, L3300.1800 ####[facility] [address] [place], [place], [phone] BUN/CRE 12.1 RATIO Normal 10-20 [facility] Comment on above: Performed By: #### L 3100.6900, L101.9900, L500.4050, L501.6710, L501.9985, L503.5510, L3200.0500, L3100.5440, L5500.0410, L3100.3425, L503.6150, L3300.0100, L3100.1850, L504.2610, L100.9950, L3300.1200, L100.0100, L501.9520, L300.3900, L3410.2400, L3200.1100, L3400.0700, L503.6550, L3300.1800 ####[facility] [address] [place], [place], [phone] Calcium [Mass/Vol] 9.7 mg/dL Normal 7.6-11.0 [facility] Comment on above: Performed By: #### L 3100.6900, L101.9900, L500.4050, L501.6710, L501.9985, L503.5510, L3200.0500, L3100.5440, L5500.0410, L3100.3425, L503.6150, L3300.0100, L3100.1850, L504.2610, L100.9950, L3300.1200, L100.0100, L501.9520, L300.3900, L3410.2400, L3200.1100, L3400.0700, L503.6550, L3300.1800 ####[facility] [address] [place], [place], [phone] Chloride [Moles/Vol] 106 mmol/L Normal 98-108 [facility] Comment on above: Performed By: #### L 3100.6900, L101.9900, L500.4050, L501.6710, L501.9985, L503.5510, L3200.0500, L3100.5440, L5500.0410, L3100.3425, L503.6150, L3300.0100, L3100.1850, L504.2610, L100.9950, L3300.1200, L100.0100, L501.9520, L300.3900, L3410.2400, L3200.1100, L3400.0700, L503.6550, L3300.1800 ####[facility] [address] [facility] [place], [place], [id number] CO2 [Moles/Vol] 21.1 mmol/L Normal 21.0-32.0 [facility] Comment on above: Performed By: #### L 3100.6900, L101.9900, L500.4050, L501.6710, L501.9985, L503.5510, L3200.0500, L3100.5440, L5500.0410, L3100.3425, L503.6150, L3300.0100, L3100.1850, L504.2610, L100.9950, L3300.1200, L100.0100, L501.9520, L300.3900, L3410.2400, L3200.1100, L3400.0700, L503.6550, L3300.1800 ####[facility] [address] [place], [place], [id number] Creatinine [Mass/Vol] 0.71 mg/dL Normal 0.70-1.20 [facility] Comment on above: Performed By: #### L 3100.6900, L101.9900, L500.4050, L501.6710, L501.9985, L503.5510, L3200.0500, L3100.5440, L5500.0410, L3100.3425, L503.6150, L3300.0100, L3100.1850, L504.2610, L100.9950, L3300.1200, L100.0100, L501.9520, L300.3900, L3410.2400, L3200.1100, L3400.0700, L503.6550, L3300.1800 ####[facility] [address] [facility] [place], [place], [id number] GAP 11 Normal 5-15 [facility] Comment on above: Performed By: #### L 3100.6900, L101.9900, L500.4050, L501.6710, L501.9985, L503.5510, L3200.0500, L3100.5440, L5500.0410, L3100.3425, L503.6150, L3300.0100, L3100.1850, L504.2610, L100.9950, L3300.1200, L100.0100, L501.9520, L300.3900, L3410.2400, L3200.1100, L3400.0700, L503.6550, L3300.1800 ####[facility] [address] [facility] [place], [place], [id number] GFR/1.73 sq M.predicted among non-blacks MDRD (S/P/Bld) [Vol rate/Area] 107 mL/min/{1.73_m2} Normal >60 [facility] Comment on above: Result Comment: mL/m in/1.73m2 CKD-EPI Creatinine Equation (2020) Performed By: #### L 3100.6900, L101.9900, L500.4050, L501.6710, L501.9985, L503.5510, L3200.0500, L3100.5440, L5500.0410, L3100.3425, L503.6150, L3300.0100, L3100.1850, L504.2610, L100.9950, L3300.1200, L100.0100, L501.9520, L300.3900, L3410.2400, L3200.1100, L3400.0700, L503.6550, L3300.1800 ####[facility] [address] [place], [address] Globulin (S) [Mass/Vol] 3.4 g/dL Normal 2.2-4.2 [facility] Comment on above: Performed By: #### L 3100.6900, L101.9900, L500.4050, L501.6710, L501.9985, L503.5510, L3200.0500, L3100.5440, L5500.0410, L3100.3425, L503.6150, L3300.0100, L3100.1850, L504.2610, L100.9950, L3300.1200, L100.0100, L501.9520, L300.3900, L3410.2400, L3200.1100, L3400.0700, L503.6550, L3300.1800 ####[facility] [address] [place], [place], [phone] Glucose [Mass/Vol] 93 mg/dL Normal 70-99 [facility] Comment on above: Performed By: #### L 3100.6900, L101.9900, L500.4050, L501.6710, L501.9985, L503.5510, L3200.0500, L3100.5440, L5500.0410, L3100.3425, L503.6150, L3300.0100, L3100.1850, L504.2610, L100.9950, L3300.1200, L100.0100, L501.9520, L300.3900, L3410.2400, L3200.1100, L3400.0700, L503.6550, L3300.1800 ####[facility] [address] [place], [place], [phone]) Potassium [Moles/Vol] 4.2 mmol/L Normal 3.3-5.1 [facility] Comment on above: Performed By: #### L 3100.6900, L101.9900, L500.4050, L501.6710, L501.9985, L503.5510, L3200.0500, L3100.5440, L5500.0410, L3100.3425, L503.6150, L3300.0100, L3100.1850, L504.2610, L100.9950, L3300.1200, L100.0100, L501.9520, L300.3900, L3410.2400, L3200.1100, L3400.0700, L503.6550, L3300.1800 ####[facility] [address] [place], [place], [phone] Sodium [Moles/Vol] 138 mmol/L Normal 133-145 [facility] Comment on above: Performed By: #### L 3100.6900, L101.9900, L500.4050, L501.6710, L501.9985, L503.5510, L3200.0500, L3100.5440, L5500.0410, L3100.3425, L503.6150, L3300.0100, L3100.1850, L504.2610, L100.9950, L3300.1200, L100.0100, L501.9520, L300.3900, L3410.2400, L3200.1100, L3400.0700, L503.6550, L3300.1800 ####[facility] [address] [place], [place], [phone] T PROT 7.3 g/dL Normal 5.9-8.4 [facility] Comment on above: Performed By: #### L 3100.6900, L101.9900, L500.4050, L501.6710, L501.9985, L503.5510, L3200.0500, L3100.5440, L5500.0410, L3100.3425, L503.6150, L3300.0100, L3100.1850, L504.2610, L100.9950, L3300.1200, L100.0100, L501.9520, L300.3900, L3410.2400, L3200.1100, L3400.0700, L503.6550, L3300.1800 ####[facility] [address] [facility]. [place], [place], [phone] Urea nitrogen [Mass/Vol] 9 mg/dL Normal 4-19 [facility] Comment on above: Performed By: #### L 3100.6900, L101.9900, L500.4050, L501.6710, L501.9985, L503.5510, L3200.0500, L3100.5440, L5500.0410, L3100.3425, L503.6150, L3300.0100, L3100.1850, L504.2610, L100.9950, L3300.1200, L100.0100, L501.9520, L300.3900, L3410.2400, L3200.1100, L3400.0700, L503.6550, L3300.1800 ####[facility] [address] [facility] [place], [address] Eosinophil percentageOrdered By: Quang Myles on 08-08-2024 Eosinophils/100 WBC (Bld) 3.8 % 0-5 [facility] Erythrocyte Sed Rateon 08-08 SED RATE 69 mm/hr High 0-30 [facility] Comment on above: Performed By: #### L 3100.6900, L101.9900, L500.4050, L501.6710, L501.9985, L503.5510, L3200.0500, L3100.5440, L5500.0410, L3100.3425, L503.6150, L3300.0100, L3100.1850, L504.2610, L100.9950, L3300.1200, L100.0100, L501.9520, L300.3900, L3410.2400, L3200.1100, L3400.0700, L503.6550, L3300.1800 ####[facility] [address] [place], [address] Erythrocyte distribution wid th ratioOrdered By: Quang Myles on 08-08-2024 Erythrocyte distribution width (RBC) [Ratio] 13.1 % 11.6-14.6 [facility] Erythrocyte distribution wid th standard deviationOrdered By: Quang Myles on 08-08-2024 Erythrocyte distribution width (RBC) [Ratio] 46.1 fl High 35.1-43.9 [facility] Erythrocyte sedimentation ra teOrdered By: Quang Myles on 08-08-2024 ESR (Bld) [Velocity] 69 mm/h High 0-30 [facility] Ferritinon 08-08-2024 Ferritin [Mass/Vol] 216 ng/mL Normal 22-378 [facility] Comment on above: Performed By: #### L 3100.6900, L101.9900, L500.4050, L501.6710, L501.9985, L503.5510, L3200.0500, L3100.5440, L5500.0410, L3100.3425, L503.6150, L3300.0100, L3100.1850, L504.2610, L100.9950, L3300.1200, L100.0100, L501.9520, L300.3900, L3410.2400, L3200.1100, L3400.0700, L503.6550, L3300.1800 ####[facility] [address] [place], [address] Gastrin, serumOrdered By: Ra treva Myles on 08-08-2024 Gastrin [Mass/Vol] 17 pg/mL 0-115 [facility] Gastroenterology Visit Repor ton 08-08-2024 Gastroenterology Visit Report Normal [facility] Glomerular filtration rate ( GFR) estimation/1.73 sq m using serum, plasma, or whole bOrdered By: Quang Myles on 08-08-2024 GFR/1.73 sq M.predicted among non-blacks MDRD (S/P/Bld) [Vol rate/Area] 107 mL/min/{1.73_m2} >60 [facility] Hematocrit Auto (Bld) [Volum e fraction]Ordered By: Quang Myles on 08-08-2024 Hematocrit (Bld) [Volume fraction] 44.1 % 37-47 [facility] Hemoglobin A1con 08-08-2024 HbA1c (Bld) [Mass fraction] 6.0 % High <=5.6 [facility] Comment on above: Result Comment: Norm al < 5.7 % Prediabetic 5.7 - 6.4 % Diabetic >or= 6.5 % Please note range changes. Performed By: #### L 3100.6900, L101.9900, L500.4050, L501.6710, L501.9985, L503.5510, L3200.0500, L3100.5440, L5500.0410, L3100.3425, L503.6150, L3300.0100, L3100.1850, L504.2610, L100.9950, L3300.1200, L100.0100, L501.9520, L300.3900, L3410.2400, L3200.1100, L3400.0700, L503.6550, L3300.1800 ####[facility] [address] [place], [place], [phone] Hemoglobin A1c percentageOrd ered By: Quang Myles on 08-08-2024 HbA1c (Bld) [Mass fraction] 6.0 % High <5.7 [facility] Hemoglobin measurementOrdere d By: Quang Myles on 08-08-2024 Hemoglobin (Bld) [Mass/Vol] 14.7 g/dL 12.0-15.0 [facility] IgEOrdered By: Quang arciniega on 08-08-2024 IgE 122 IU/mL 6-495 [facility] Immature granulocytes/100 WB C Auto (Bld)Ordered By: Quang Myles on 08-08-2024 Immature granulocytes/100 WBC (Bld) 0.500 % 0.0-0.9 [facility] Interpretation of serum or p lasma protein pattern by immunofixation (narrative resultOrdered By: Quang Myles on 08-08-2024 Protein Fractions Immunofixation David [Interp] Not Observed g/dL Not Observed [facility] Ironon 08-08-2024 Iron [Mass/Vol] 75 ug/dL Normal 50-170 [facility] Comment on above: Performed By: #### L 3100.6900, L101.9900, L500.4050, L501.6710, L501.9985, L503.5510, L3200.0500, L3100.5440, L5500.0410, L3100.3425, L503.6150, L3300.0100, L3100.1850, L504.2610, L100.9950, L3300.1200, L100.0100, L501.9520, L300.3900, L3410.2400, L3200.1100, L3400.0700, L503.6550, L3300.1800 ####[facility] [address] [place], [address] Iron measurement (mass/mass) Ordered By: Quang Myles on 08-08-2024 Iron (Unsp spec) [Mass/Mass] 75 ug/dL 50-170 [facility] LDHon 08-08-2024 LDH 258 U/L High 84-246 [facility] Comment on above: Order Comment: 1 Performed By: #### L 3100.6900, L101.9900, L500.4050, L501.6710, L501.9985, L503.5510, L3200.0500, L3100.5440, L5500.0410, L3100.3425, L503.6150, L3300.0100, L3100.1850, L504.2610, L100.9950, L3300.1200, L100.0100, L501.9520, L300.3900, L3410.2400, L3200.1100, L3400.0700, L503.6550, L3300.1800 ####[facility] [address] [place], [address] Laboratory - Miscellaneous t estsOrdered By: Quang Myles on 08-08-2024 Service comment (Unsp spec) [Interp] Comment . [facility] MCV (mean corpuscular volume ) determinationOrdered By: Quang Myles on 08-08-2024 MCV (RBC) [Entitic vol] 95.9 fL 81-99 [facility] Mean corpuscular hemoglobin (MCH) determinationOrdered By: Quang Myles on 08-08-2024 MCH (RBC) [Entitic mass] 32.0 pg 27.0-32.0 [facility] Monocyte percentageOrdered B y: Quang Myles on 08-08-2024 Monocytes/100 WBC (Bld) 5.4 % 0-10 [facility] Neutrophil percentageOrdered By: Quang Myles on 08-08-2024 Neutrophils/100 WBC (Bld) 75.5 % High 47-70 [facility] No Panel InformationOrdered By: Quang Myles on 08-08-2024 Addendum Document Comment . [facility] 43 U/L High <32 [facility] Platelet countOrdered By: Ra treva Myles on 08-08-2024 Platelets (Bld) [#/Vol] 375 10*3/uL 150-450 [facility] Potassium measurement (mass/ volume)Ordered By: Quang Myles on 08-08-2024 Potassium (Unsp spec) [Mass/Vol] 4.2 mmol/L 3.3-5.1 [facility] Prothrombin Time w/INRon INR Coag (PPP) [Relative time] 1.0 {INR} Normal [facility] Comment on above: Performed By: #### L 3100.6900, L101.9900, L500.4050, L501.6710, L501.9985, L503.5510, L3200.0500, L3100.5440, L5500.0410, L3100.3425, L503.6150, L3300.0100, L3100.1850, L504.2610, L100.9950, L3300.1200, L100.0100, L501.9520, L300.3900, L3410.2400, L3200.1100, L3400.0700, L503.6550, L3300.1800 ####[facility] [address] [place], [place], [id number] PT Coag (PPP) [Time] 12.8 s Normal 11.7-14.9 [facility] Comment on above: Performed By: #### L 3100.6900, L101.9900, L500.4050, L501.6710, L501.9985, L503.5510, L3200.0500, L3100.5440, L5500.0410, L3100.3425, L503.6150, L3300.0100, L3100.1850, L504.2610, L100.9950, L3300.1200, L100.0100, L501.9520, L300.3900, L3410.2400, L3200.1100, L3400.0700, L503.6550, L3300.1800 ####[facility] [address] [place], [place], [phone] Prothrombin timeOrdered By: Quang Myles on 08-08-2024 PT Coag (PPP) [Time] 12.8 s 11.7-14.9 [facility] RBC Auto (Bld) [#/Vol]Ordere d By: Quang Myles on 08-08-2024 RBC (Bld) [#/Vol] 4.60 10*6/uL 4.2-5.4 [facility] Retic Panelon 08-08-2024 IM RET FRACTION 14.30 Normal 3.00-15.90 [facility] Comment on above: Performed By: #### L 3100.6900, L101.9900, L500.4050, L501.6710, L501.9985, L503.5510, L3200.0500, L3100.5440, L5500.0410, L3100.3425, L503.6150, L3300.0100, L3100.1850, L504.2610, L100.9950, L3300.1200, L100.0100, L501.9520, L300.3900, L3410.2400, L3200.1100, L3400.0700, L503.6550, L3300.1800 ####[facility] [address] [place], [place], [phone] RET-HE 34.4 pg Normal 30-35 [facility] Comment on above: Performed By: #### L 3100.6900, L101.9900, L500.4050, L501.6710, L501.9985, L503.5510, L3200.0500, L3100.5440, L5500.0410, L3100.3425, L503.6150, L3300.0100, L3100.1850, L504.2610, L100.9950, L3300.1200, L100.0100, L501.9520, L300.3900, L3410.2400, L3200.1100, L3400.0700, L503.6550, L3300.1800 ####[facility] [address], [address] Retic Count 0.78 Normal 0.5-1.5 [facility] Comment on above: Performed By: #### L 3100.6900, L101.9900, L500.4050, L501.6710, L501.9985, L503.5510, L3200.0500, L3100.5440, L5500.0410, L3100.3425, L503.6150, L3300.0100, L3100.1850, L504.2610, L100.9950, L3300.1200, L100.0100, L501.9520, L300.3900, L3410.2400, L3200.1100, L3400.0700, L503.6550, L3300.1800 ####[facility] [address] [facility] [place], [address] Reticulocyte hemoglobin equi valent (RET-He) measurementOrdered By: Quang Myles on 08-08-2024 Hemoglobin (Reticulocytes) [Entitic mass] 34.4 pg 30-35 [facility] Reticulocytes Auto (Bld) [#/ Vol]Ordered By: Quang Myles on 08-08-2024 Reticulocytes/100 RBC (Bld) 0.78 % 0.5-1.5 [facility] Serum DNA double strand anti body assay (units/volume)Ordered By: Quang Myles on 08-08-2024 DNA double strand Ab Qn (S) [IU]/mL 0-9 [facility] Serum IgG subclass 1 measure ment (mass/volume)Ordered By: Quang Myles on 08-08-2024 IgG subclass 1 (S) [Mass/Vol] 509 mg/dL 248-810 [facility] Serum IgG subclass 2 measure ment (mass/volume)Ordered By: Quang Myles on 08-08-2024 IgG subclass 2 (S) [Mass/Vol] 168 mg/dL 130-555 [facility] Serum IgG subclass 3 measure ment (mass/volume)Ordered By: Quang Myles on 08-08-2024 IgG subclass 3 (S) [Mass/Vol] 73 mg/dL 15-102 [facility] Serum Scl-70 antibody assay (units/volume)Ordered By: Quang Myles on 08-08-2024 SCL-70 extractable nuclear Ab Qn (S) TNP [facility] SCL-70 extractable nuclear Ab Qn (S) <0.2 AI 0.0-0.9 [facility] Serum black walnut IgE antib eliecer assay (units/volume)Ordered By: Quang Myles on 08-08-2024 [place] IgE Qn (S) <0.10 kU/L Class 0 [facility] Serum clam IgE antibody assa y (units/volume)Ordered By: Quang Myles on 08-08-2024 Clam IgE Qn (S) <0.10 kU/L Class 0 [facility] Serum classic neutrophil cyt oplasmic antibody assay (units/volume)Ordered By: Quang Myles on 08-08-2024 Neutrophil cytoplasmic Ab.classic Qn (S) <1:20 titer Neg:<1:20 [facility] Serum codfish IgE antibody a ssay (units/volume)Ordered By: Quang Myles on 08-08-2024 Codfish IgE Qn (S) <0.10 kU/L Class 0 [facility] Serum corn IgE antibody assa y (units/volume)Ordered By: Quang Myles on 08-08-2024 [place] IgE Qn (S) <0.10 kU/L Class 0 [facility] Serum cow milk IgE antibody assay (units/volume)Ordered By: Quang Myles on 08-08-2024 Cow milk IgE Qn (S) 0.24 kU/L High Class 0/I [facility] Serum creatinine measurement (mass/volume)Ordered By: Quang Myles on 08-08-2024 Creatinine [Mass/Vol] 0.71 mg/dL 0.70-1.20 [facility] Serum egg white IgE antibody assay (units/volume)Ordered By: Quang Myles on 08-08-2024 Egg white IgE Qn (S) <0.10 kU/L Class 0 [facility] Serum globulin measurement ( mass/volume)Ordered By: Quang Myles on 08-08-2024 Globulin (S) [Mass/Vol] 3.5 g/dL 2.2-3.9 [facility] Serum glucose measurement (m ass/volume)Ordered By: Quang Myles on 08-08-2024 Glucose [Mass/Vol] 93 mg/dL 70-99 [facility] Serum or plasma C reactive p rotein measurement (mass/volume)Ordered By: Quang Myles on 08-08-2024 CRP [Mass/Vol] 16.80 mg/L High 0.0-3.0 [facility] Serum or plasma IgA measurem ent (mass/volume)Ordered By: Quang Myles on 08-08-2024 IgA [Mass/Vol] 134 mg/dL 87-352 [facility] Serum or plasma IgG measurem ent (mass/volume)Ordered By: Quang Myles on 08-08-2024 IgG [Mass/Vol] 945 mg/dL 586-1602 [facility] IgG [Mass/Vol] Not Reportable [facility] Serum or plasma alanine hair otransferase (ALT) measurementOrdered By: Quang Myles on 08-08-2024 ALT [Catalytic activity/Vol] 37 U/L High <35 [facility] Serum or plasma albumin leslie urement (mass/volume)Ordered By: Quang Myles on 08-08-2024 Albumin [Mass/Vol] 3.9 g/dL 3.5-5.0 [facility] Serum or plasma albumin/glob ulin mass ratioOrdered By: Quang Myles on 08-08-2024 Albumin/Globulin [Mass ratio] 1.1 {ratio} 0.9-2.4 [facility] Serum or plasma alkaline delfin sphatase measurementOrdered By: Quang Myles on 08-08-2024 ALP [Catalytic activity/Vol] 155 U/L High 35-104 [facility] Serum or plasma alpha 1 glob ulin measurement by electrophoresis (mass/volume)Ordered By: Quang Myles on 08-08-2024 Alpha 1 globulin Elph [Mass/Vol] 0.2 g/dL 0.0-0.4 [facility] Alpha 1 globulin Elph [Mass/Vol] 1.1 g/dL High 0.4-1.0 [facility] Serum or plasma angiotensin converting enzyme measurement (enzymatic activity/volume)Ordered By: Quang Myles on 08-08-2024 Angiotensin converting enzyme [Catalytic activity/Vol] 62 U/L 14-82 [facility] Serum or plasma beta globuli n measurement by electrophoresis (mass/volume)Ordered By: Quang Myles on 08-08-2024 Beta globulin Elph [Mass/Vol] 1.2 g/dL 0.7-1.3 [facility] Serum or plasma calcium leslie urement (mass/volume)Ordered By: Quang Myles on 08-08-2024 Calcium [Mass/Vol] 9.7 mg/dL 7.6-11.0 [facility] Serum or plasma ferritin janet surement (mass/volume)Ordered By: Quang Myles on 08-08-2024 Ferritin [Mass/Vol] 216 ng/mL 22-378 [facility] Serum or plasma gamma globul in measurement by electrophoresis (mass/volume)Ordered By: Quang Myles on 08-08-2024 Gamma globulin Elph [Mass/Vol] 1.0 g/dL 0.4-1.8 [facility] Serum or plasma immunoelectr ophoresis interpretation (nominal result)Ordered By: Quang Myles on 08-08-2024 Interpretation IEP [Interp] Comment . [facility] Serum or plasma protein leslie urement (mass/volume)Ordered By: Quang Myles on 08-08-2024 Protein [Mass/Vol] 6.9 g/dL 6.0-8.5 [facility] Serum or plasma urea nitroge n measurement (mass/volume)Ordered By: Quang Myles on 08-08-2024 Urea nitrogen [Mass/Vol] 9 mg/dL 4-19 [facility] Serum peanut IgE antibody as say (units/volume)Ordered By: Quang Myles on 08-08-2024 Peanut IgE Qn (S) <0.10 kU/L Class 0 [facility] Serum perinuclear neutrophil cytoplasmic antibody titer by immunofluorescenceOrdered By: Quang Myles on 08-08-2024 Neutrophil cytoplasmic Ab.perinuclear IF (S) [Titer] <1:20 titer Neg:<1:20 [facility] Serum soybean IgE antibody a ssay (units/volume)Ordered By: Quang Myles on 08-08-2024 Soybean IgE Qn (S) <0.10 kU/L Class 0 [facility] Serum tissue transglutaminas e (tTG) IgA antibody assay (units/volume)Ordered By: Quang Myles on 08-08-2024 tTG IgA Qn (S) <2 U/mL 0-3 [facility] Serum wheat IgE antibody ass ay (units/volume)Ordered By: Quang Myles on 08-08-2024 Wheat IgE Qn (S) <0.10 kU/L Class 0 [facility] Sodium levelOrdered By: Wendy Au on 08-08-2024 Sodium [Moles/Vol] 138 mmol/L 133-145 [facility] TSH DL <= 0.005 mIU/L QnOrde red By: Quang Myles on 08-08-2024 TSH Qn 2.360 uIU/mL 0.300-4.20 0 [facility] Thyroid Stim Hormone (TSH)on 08-08-2024 TSH 2.360 uIU/mL Normal 0.300-4.20 0 [facility] Comment on above: Performed By: #### L 3100.6900, L101.9900, L500.4050, L501.6710, L501.9985, L503.5510, L3200.0500, L3100.5440, L5500.0410, L3100.3425, L503.6150, L3300.0100, L3100.1850, L504.2610, L100.9950, L3300.1200, L100.0100, L501.9520, L300.3900, L3410.2400, L3200.1100, L3400.0700, L503.6550, L3300.1800 ####[facility] [address] [place], [place], [id number] Total proteinOrdered By: Luis Myles on 08-08-2024 Protein [Mass/Vol] 7.3 g/dL 5.9-8.4 [facility] Venous blood ammonia measure mentOrdered By: Quang Myles on 08-08-2024 Ammonia (P) [Moles/Vol] 36.2 umol/L 11-51 [facility] White blood cell (WBC) count Ordered By: Quang Myles on 08-08-2024 WBC (Bld) [#/Vol] 9.2 10*3/uL 4.4-11.0 [facility] Basic metabolic 2000 panelon 07-27-2024 Anion gap [Moles/Vol] 13 mmol/L Normal 8-15 [facility] Comment on above: Order Comment: Speci men Type: BLOOD SPECIMEN Ordering Facility: [facility] Address: [address] [place] [address] Performed By: #### 1 9123-9, 42150-8 #### [facility] CLIA [id number] [address] [place] [address] [place] Calcium [Mass/Vol] 10.3 mg/dL High 8.5-10.2 [facility] Comment on above: Order Comment: Speci men Type: BLOOD SPECIMEN Ordering Facility: [facility] Address: [address] [place] [address] Performed By: #### 1 9123-9, 74450-1 #### [facility] CLIA [id number] [address] [place] [address] [place] Chloride [Moles/Vol] 98 mmol/L Normal 98-107 [facility] Comment on above: Order Comment: Speci men Type: BLOOD SPECIMEN Ordering Facility: [facility] Address: [address] [place] [address] Performed By: #### 1 9123-9, 62320-9 #### [facility] CLIA [id number] [address] [place] [address] [place] CO2 [Moles/Vol] 23 mmol/L Normal 22-30 [facility] Comment on above: Order Comment: Speci men Type: BLOOD SPECIMEN Ordering Facility: [facility] Address: [address] [place] [address] Performed By: #### 1 9123-9, 28523-6 #### [facility] CLIA [id number] [address] [place] [address] [place] Creatinine [Mass/Vol] 0.88 mg/dL Normal 0.58-0.96 [facility] [facility] Comment on above: Order Comment: Speci men Type: BLOOD SPECIMEN Ordering Facility: [facility] Address: [address] [place] [address] Performed By: #### 1 9123-9, 44185-3 #### [facility] CLIA [id number] [address] [place] [address] [place] Creatinine and Glomerular filtration rate.predicted panel (S/P/Bld) 83 mL/min/1.73m??? Normal >=60 [facility] Comment on above: Order Comment: Speci men Type: BLOOD SPECIMEN Ordering Facility: [facility] Address: [address] [place] [address] Result Comment: Vidal mated Glomerular Filtration Rate [...] actual GFR. Performed By: #### 1 9123-9, 01725-2 #### [facility] CLIA [id number] [address] [place] [address] [place] Glucose [Mass/Vol] 84 mg/dL Normal 74-99 [facility] Comment on above: Order Comment: Spectian ponce Type: BLOOD SPECIMEN Ordering Facility: [facility] Address: [address] [place] [address] Result Comment: The [place] Diabetes Association (ADA) provides guidance for cutoff [...] Standards of Medical Care in Diabetes 2016, [place] Diabetes Association. Diabetes Care. 2016.39(Suppl 1). Performed By: #### 1 9123-9, 88620-7 #### [facility] CLIA [id number] [address] [place], [place] [address] [place] Potassium [Moles/Vol] 5.4 mmol/L High 3.7-5.1 [facility] Comment on above: Order Comment: David ponce Type: BLOOD SPECIMEN Ordering Facility: [facility] Address: [address] [place] [address] Performed By: #### 1 9123-9, 92268-4 #### [facility] CLIA [id number] [address] [place], [place] [address] [place] Sodium [Moles/Vol] 134 mmol/L Low 136-144 [facility] Comment on above: Order Comment: Speci men Type: BLOOD SPECIMEN Ordering Facility: [facility] Address: [address] [place] [address] Performed By: #### 1 9123-9, 18966-5 #### [facility] CLIA [id number] [address] [place] [address] [place] Urea nitrogen [Mass/Vol] 25 mg/dL High 7-21 [facility] Comment on above: Order Comment: Speci men Type: BLOOD SPECIMEN Ordering Facility: [facility] Address: [address] [place] [address] Performed By: #### 1 9123-9, 35718-4 #### [facility] CLIA [id number] [address] [place] [address] [place] CBC panel Auto (Bld)on 07-27 Erythrocyte distribution width (RBC) [Ratio] 14.0 % Normal 11.5-15.0 [facility] Comment on above: Order Comment: Speci men Type: BLOOD SPECIMEN Ordering Facility: [facility] Address: [address] [place] [address] Performed By: #### 5 8410-2 #### [facility] CLIA [id number] [address] [place] [address] [place] Hematocrit (Bld) [Volume fraction] 55.3 % High 36.0-46.0 [facility] Comment on above: Order Comment: Speci men Type: BLOOD SPECIMEN Ordering Facility: [facility] Address: [address] [place] [address] Performed By: #### 5 8410-2 #### [facility] CLIA [id number] [address] [place] [address] [place] Hemoglobin (Bld) [Mass/Vol] 18.1 g/dL High 11.5-15.5 [facility] Comment on above: Order Comment: Speci men Type: BLOOD SPECIMEN Ordering Facility: [facility] Address: [address] [place] [address] Performed By: #### 5 8410-2 #### [facility] CLIA [id number] [address] [place] [address] [place] MCH (RBC) [Entitic mass] 31.5 pg Normal 26.0-34.0 [facility] Comment on above: Order Comment: Speci men Type: BLOOD SPECIMEN Ordering Facility: [facility] Address: [address] [place] [address] Performed By: #### 5 8410-2 #### [facility] CLIA [id number] [address] [place] [address] [place] MCHC (RBC) [Mass/Vol] 32.7 g/dL Normal 30.5-36.0 [facility] Comment on above: Order Comment: Speci men Type: BLOOD SPECIMEN Ordering Facility: [facility] Address: [address] [place] [address] Performed By: #### 5 8410-2 #### [facility] CLIA [id number] [address] [place] [address] [place] MCV (RBC) [Entitic vol] 96.3 fL Normal 80.0-100.0 [facility] Comment on above: Order Comment: Speci men Type: BLOOD SPECIMEN Ordering Facility: [facility] Address: [address] [place] [address] Performed By: #### 5 8410-2 #### [facility] CLIA [id number] [address] [place] [address] [place] Nucleated RBC (Bld) [#/Vol] 10*3/uL Normal <0.01 [facility] Comment on above: Order Comment: Speci men Type: BLOOD SPECIMEN Ordering Facility: [facility] Address: [address] [place] [address] Performed By: #### 5 8410-2 #### [facility] CLIA [id number] [address] [place] [address] [place] Platelet mean volume (Bld) [Entitic vol] 9.5 fL Normal 9.0-12.7 [facility] Comment on above: Order Comment: Speci men Type: BLOOD SPECIMEN Ordering Facility: [facility] Address: [address] [place] [address] Performed By: #### 5 8410-2 #### [facility] CLIA [id number] [address] [place] [address] [place] Platelets (Bld) [#/Vol] 385 10*3/uL Normal 150-400 [facility] Comment on above: Order Comment: Speci men Type: BLOOD SPECIMEN Ordering Facility: [facility] Address: [address] [place] [address] Performed By: #### 5 8410-2 #### [facility] CLIA [id number] [address] [place] [address] [place] RBC (Bld) [#/Vol] 5.74 10*6/uL High 3.90-5.20 [facility] Comment on above: Order Comment: Speci men Type: BLOOD SPECIMEN Ordering Facility: [facility] Address: [address] [place] [address] Performed By: #### 5 8410-2 #### [facility] CLIA [id number] [address] [place] [address] [place] WBC (Bld) [#/Vol] 12.54 10*3/uL High 3.70-11.00 [facility] Comment on above: Order Comment: Speci men Type: BLOOD SPECIMEN Ordering Facility: [facility] Address: [address] [place], [place] [address] Performed By: #### 5 8410-2 #### [facility] CLIA [id number] [address] [place] [address] OF [facility] Chad 07-27-2024 [facility] HNO ID: [id number] Author: CASE FONSECA MD Service: Cardiovascular Medicine Author Type: Physician Fisher Pot Type: Discharge Summary Filed: 08/08/2024 18:58 Note Text: -------- Attestation signed by Case Fonseca MD at 08/08/2024 6:58 PM As above -------- Department of Cardiovascular Medicine Discharge Summary (Template ID [id number]) PATIENT NAME: Michelle Mitchell ADMISSION DATE: 07/24/2024 [...] of lower extremity Yes Current use of [facility] anticoagulation Yes Insomnia Yes Heart valve vegetation [...] display. Reason for Hospitalization: Patient transferred to [facility] from [place] for concerns for ADHF and hx of [...] follow up with her local PCP and sales communications manager in [place]. Consults: Infectious Disease, Electrophysiology, and Psychiatry Major [...] Other: See Comments suicidal ideations Azithromycin Intolerance Reliance Anaphylaxis Reliance Anaphylaxis pickles Fish Anaphylaxis Levofloxacin In D5w [...] Your Medications These medications were sent to [id number] - [place] [address] [address] [facility] - [phone] [address] [facility] [address] metoprolol succinate ER 25 mg 24 hr tablet Transitions of Care Critical Issues: Outpatient Management: * Are there important medication changes and/or outstanding issues that need to be addressed: See Above * What is the plan for follow up: Follow up with local PCP and sales communications manager in [place] Future Appointments: No future appointments. Highest Readmis (more content not included)... Normal [facility] Culture, Blood (WB)on 2024 CUB No growth in 5 days. Normal [facility] Comment on above: Performed By: #### M 200.1000 ####[facility] [id number] [place], [place], [address] Magnesium SerPl-mCncon 07-27 Magnesium [Mass/Vol] 2.3 mg/dL Normal 1.7-2.3 [facility] Comment on above: Order Comment: Speci men Type: BLOOD SPECIMEN Ordering Facility: [facility] Address: [address] [place] [address] Performed By: #### 1 9123-9, 93009-0 #### [facility] CLIA [id number] [address] [place] [address] [place] [address] [place] PT EDon 07-27-2024 PT ED HNO ID: [id number] Author: IRLANDA MOORE RPh Service: Pharmacy Author [...] FURTHER RECOMMENDATIONS (IF ANY): n/a Irlanda Moore [facility] PAGER: [phone] [facility] ED HNO ID: [id number] Author: JARVIS PALOMINO DTR Service: Nutrition Therapy Author Type: Electronic Page Makeup System Operator Type: Patient Education Filed: 07/27/2024 08:38 Note [...] July 27, 2024 TIME: 8:38 AM PAGER: Carlos Eduardo [facility] 07-26-2024 [facility] HNO ID: [id number] Author: HARITHA GOMEZ Art Therapist Service: Art [...] 26, 2024 TIME: 4:40 PM PAGER/CONTACT #: [phone] Normal [facility] Basic metabolic 2000 panelon 07-26-2024 Anion gap [Moles/Vol] 14 mmol/L Normal 8-15 [facility] Comment on above: Order Comment: Speci men Type: BLOOD SPECIMEN Ordering Facility: [facility] Address: [address] [place] [address] Performed By: #### 1 9123-9, 25830-0 #### [facility] CLIA [id number] [address] [place] [address] [place] Calcium [Mass/Vol] 9.4 mg/dL Normal 8.5-10.2 [facility] Comment on above: Order Comment: Speci men Type: BLOOD SPECIMEN Ordering Facility: [facility] Address: [address] [place] [address] Performed By: #### 1 9123-9, 62393-1 #### [facility] CLIA [id number] [address] [place] [address] [place] Chloride [Moles/Vol] 98 mmol/L Normal 98-107 [facility] Comment on above: Order Comment: Speci men Type: BLOOD SPECIMEN Ordering Facility: [facility] Address: [address] [place] [address] Performed By: #### 1 9123-9, 65846-0 #### [facility] CLIA [id number] [address] [place] [address] [place] CO2 [Moles/Vol] 24 mmol/L Normal 22-30 [facility] Comment on above: Order Comment: Speci men Type: BLOOD SPECIMEN Ordering Facility: [facility] Address: [address] [place] [address] Performed By: #### 1 9123-9, 77703-0 #### [facility] CLIA [id number] [address] [place] [address] [place] Creatinine [Mass/Vol] 1.02 mg/dL High 0.58-0.96 [facility] Comment on above: Order Comment: Speci men Type: BLOOD SPECIMEN Ordering Facility: [facility] Address: [address] [place] [address] Performed By: #### 1 9123-9, 85309-1 #### [facility] [place] [id number] [address] [place] [address] [place] Creatinine and Glomerular filtration rate.predicted panel (S/P/Bld) 70 mL/min/1.73m??? Normal >=60 [facility] Comment on above: Order Comment: Speci men Type: BLOOD SPECIMEN Ordering Facility: [facility] Address: [address] [place] [address] Result Comment: Vidal mated Glomerular Filtration Rate [...] actual GFR. Performed By: #### 1 9123-9, 83209-2 #### [facility] CLIA [id number] [address] [place] [address] [place] Glucose [Mass/Vol] 98 mg/dL Normal 74-99 [facility] Comment on above: Order Comment: Speci men Type: BLOOD SPECIMEN Ordering Facility: [facility] Address: [address] [place] [address] Result Comment: The [place] Diabetes Association (ADA) provides guidance for cutoff [...] Standards of Medical Care in Diabetes 2016, [place] Diabetes Association. Diabetes Care. 2016.39(Suppl 1). Performed By: #### 1 9123-9, 49509-4 #### [facility] CLIA [id number] [address] [place] [address] [place] Potassium [Moles/Vol] 4.5 mmol/L Normal 3.7-5.1 [facility] Comment on above: Order Comment: Kianai men Type: BLOOD SPECIMEN Ordering Facility: [facility] Address: [address] [place] [address] Performed By: #### 1 9123-9, 88746-3 #### [facility] CLIA [id number] [address] [place] [address] [place] Sodium [Moles/Vol] 136 mmol/L Normal 136-144 [facility] Comment on above: Order Comment: Speci men Type: BLOOD SPECIMEN Ordering Facility: [facility] Address: [address] [place] [address] Performed By: #### 1 9123-9, 88487-4 #### [facility] CLIA [id number] [address] [place] [address] [place] Urea nitrogen [Mass/Vol] 29 mg/dL High 7-21 [facility] Comment on above: Order Comment: Speci men Type: BLOOD SPECIMEN Ordering Facility: [facility] Address: [address] [place] [address] Performed By: #### 1 9123-9, 90286-9 #### [facility] CLIA [id number] [address] [place] [address] [place] CBC panel Auto (Bld)on 07-26 Erythrocyte distribution width (RBC) [Ratio] 14.1 % Normal 11.5-15.0 [facility] Comment on above: Order Comment: Speci men Type: BLOOD SPECIMEN Ordering Facility: [facility] Address: [address] [place] [address] Performed By: #### 5 8410-2 #### [facility] CLIA [id number] [address] [place] [address] [place] Hematocrit (Bld) [Volume fraction] 50.7 % High 36.0-46.0 [facility] Comment on above: Order Comment: Speci men Type: BLOOD SPECIMEN Ordering Facility: [facility] Address: [address] [place] [address] Performed By: #### 5 8410-2 #### [facility] CLIA [id number] [address] [place] [address] [place] Hemoglobin (Bld) [Mass/Vol] 16.3 g/dL High 11.5-15.5 [facility] Comment on above: Order Comment: Speci men Type: BLOOD SPECIMEN Ordering Facility: [facility] Address: [address] [place] [address] Performed By: #### 5 8410-2 #### [facility] CLIA [id number] [address] [place] [address] [place] MCH (RBC) [Entitic mass] 31.3 pg Normal 26.0-34.0 [facility] Comment on above: Order Comment: Speci men Type: BLOOD SPECIMEN Ordering Facility: [facility] Address: [address] [place] [address] Performed By: #### 5 8410-2 #### [facility] CLIA [id number] [address] [place] [address] [place] MCHC (RBC) [Mass/Vol] 32.1 g/dL Normal 30.5-36.0 [facility] Comment on above: Order Comment: Speci men Type: BLOOD SPECIMEN Ordering Facility: [facility] Address: [address] [place] [address] Performed By: #### 5 8410-2 #### [facility] CLIA [id number] [address] [place] [address] [place] MCV (RBC) [Entitic vol] 97.3 fL Normal 80.0-100.0 [facility] Comment on above: Order Comment: Speci men Type: BLOOD SPECIMEN Ordering Facility: [facility] Address: [address] [place] [address] Performed By: #### 5 8410-2 #### [facility] CLIA [id number] [address] [place] [address] [place] Nucleated RBC (Bld) [#/Vol] 10*3/uL Normal <0.01 [facility] Comment on above: Order Comment: Speci men Type: BLOOD SPECIMEN Ordering Facility: [facility] Address: [address] [place] [address] Performed By: #### 5 8410-2 #### [facility] CLIA [id number] [address] [place] [address] [place] Platelet mean volume (Bld) [Entitic vol] 9.8 fL Normal 9.0-12.7 [facility] Comment on above: Order Comment: Speci men Type: BLOOD SPECIMEN Ordering Facility: [facility] Address: [address] [place] [address] Performed By: #### 5 8410-2 #### [facility] CLIA [id number] [address] [place] [address] [place] Platelets (Bld) [#/Vol] 344 10*3/uL Normal 150-400 [facility] Comment on above: Order Comment: Speci men Type: BLOOD SPECIMEN Ordering Facility: [facility] Address: [address] [place] [address] Performed By: #### 5 8410-2 #### [facility] CLIA [id number] [address] [place] [address] [place] RBC (Bld) [#/Vol] 5.21 10*6/uL High 3.90-5.20 [facility] Comment on above: Order Comment: Speci men Type: BLOOD SPECIMEN Ordering Facility: [facility] Address: [address] [place] [address] Performed By: #### 5 8410-2 #### [facility] CLIA [id number] [address] [place] [address] [place] WBC (Bld) [#/Vol] 15.07 10*3/uL High 3.70-11.00 [facility] Comment on above: Order Comment: Speci men Type: BLOOD SPECIMEN Ordering Facility: [facility] Address: [address] [place] [address] Performed By: #### 5 8410-2 #### [facility] CLIA [id number] [address] [place] [address] OF [place] CNOVon 07-26-2024 CNOV Office Visit ([facility] ) -------- MICHELLE MITCHELL ([id number]) 1980 F Date Time Provider Department 07/26/24 8:15 AM [facility] J[facility] [place] During your visit today, we recorded the following information about you: Referring Provider: TEJAL RODRÍGUEZ [[id number]] Allergies As of Date: 07/26/2024 Noted Allergy [...] percocet Date Reviewed: 07/25/2024 Reviewed by: Huan Kahn, JAJA - Fully Assessed Reason for Visit: Spirometry [...] [Z85.41] 07/12 (more content not included)... Normal [facility] CNOV Office Visit ([facility] ) -------- MICHELLE MITCHELL ([id number]) 1980 F Date Time Provider [facility] During your visit today, we recorded the following information about you: Referring Provider: TEJAL RODRÍGUEZ [[id number]] Allergies As of Date: 07/26/2024 Noted Allergy [...] percocet Date Reviewed: 07/25/2024 Reviewed by: Huan Kahn, RN - Fully Assessed Reason for Visit: [...] Chest pain [R07.9] 08/10/2016 PE (pulmonary thromboembolism) ([facility]) [I26.99] 11/30/2016 Left breast mass [N63.20] 12/23/2016 [...] F17.2 [F17.200] 04/25/2021 CHF (congestive heart failure) ([facility]) [I50.9] 04/25/2021 HOCM (hypertrophic obstructive cardiomyopathy) *05/15/2024 Abnormal CXR [R93.89] 05/15/2024 Abscess of left leg [L02.416] 05/15/2024 Leg wound, left, initial encounter [S81.802A] 05/17/2024 Hepatomegaly [R16.0] 07/04/2024 Other ascites [R18.8] 07/04/2024 Abdominal pain [R10.9] 07/04/2024 Leukopenia [D72.819] 07/04/2024 Endocarditis [I38] 07/24/2024 H/O left mastectomy [Z90.12] 07/24/2024 Hx of cervical cancer [Z85.41] 07/12 (more content not included)... Normal [facility] CONSULTon 07-26-2024 CONSULT HNO ID: [id number] Author: TANJA PINA MD Service: Vascular Medicine [...] nausea, facial swelling. She was seen in [place] ED twice and was discharged home. She was then advised to go to [facility] and was admitted on 07/04/2024. Per GI [...] duodenum. She was then transferred to the [facility] campus on 07/24/2024 as [...] 2 years. In 2016, she went to [facility] ED with chest pain and further workup revealed acute PE in the right lower lobe diagnosed on 11/29/2016. She was then discharged on Xarelto. Due to intermittent episodes of severe chest pain, she ended up getting CT chest every month to reevaluate pulmonary artery. She then followed up with Dr. Armstrong (Hem/Onc) who recommeded room service attendant AC due to uprovoked PE. Xarelto was [...] BRCA mutation checked while she was in [facility]. FAMILY HISTORY: family history includes Breast [...] Other: See Comments suicidal ideations Azithromycin Intolerance Reliance Anaphylaxis Reliance Anaphylaxis pickles Fish Anaphylaxis Levofloxacin In D5w [...] screening done (more content not included)... Normal [facility] CONSULT PROGon 07-26-2024 CONSULT PROG HNO ID: [id number] Author: ROSAMARIA HAJI MD Service: Electrophysiology Author [...] found for the last 365 days. Normal [facility] CONSULT PROG HNO ID: [id number] Author: DAINA MCPHERSON MD Service: Infectious Disease [...] primary team. Signature: Daina Mcpherson MD Pager: [phone] Normal [facility] LUNG DIFFUSION CAPACITY (CARMEN O)on 07-26-2024 LUNG DIFFUSION CAPACITY (DLCO) [facility] [address] [place] [address] Test Date: 2024-07-26 Pat Name: MICHELLE MITCHELL Department: Room: [place] [address] Gender: Female Morning Caregiver: : 1980 Requested By: Order Number: [id number] [...] 11:31:34 EDT by Dex Ch MD ID: [id number] Name: MICHELLE MITCHELL Race: White Ht: 63.15 [...] FIF50 4.29 FEF50/FIF50 0.36 90-100 FIVC 2.81 DRE89-27 1.16 1.71 2.91 4.40 39 -2.58 ExpiredTime [...] 82 % FEV1/FVC_LLN (%) : 71 % JXJ49_MGG (L/S) : 3.39 L/S VKL45_BRY (L/S) : 0.45 L/S QHD02_BWPX (L/S) : 1.04 L/S QLF93_XVD (L/S) : 0.48 L/S RUN43_PZO (L/S) : 2.06 L/S GLZ55-98%_PRE (L/S) : 1.16 L/S IEC71-89%_PRED (L/S) : 2.91 L/S AWC70-81%_LLN (L/S) : 1.71 L/S PEF_PRE (L/S) : [...] ml/min/mmHg DLCO/VACOR (ML/MIN/MMHG/L) : 0.04 ml/min/mmHg/L Normal [facility] Magnesium SerPl-mCncon 07-26 Magnesium [Mass/Vol] 2.3 mg/dL Normal 1.7-2.3 [facility] Comment on above: Order Comment: Speci men Type: BLOOD SPECIMEN Ordering Facility: [facility] Address: [address] [place] [address] Performed By: #### 1 9123-9, 23099-3 #### [facility] CLIA [id number] [address] [place] [address] [place] PTT, ANTICOAGULANT THERAPYon 07-26-2024 aPTT Coag (PPP) [Time] 26.1 s Normal 23.0-32.4 [facility] Comment on above: Order Comment: Speci men Type: BLOOD SPECIMENOrdering Facility: [facility] Address: [address] [place] [address] Performed By: #### P TTAC ####[facility] [id number] [address] aPTT Coag (PPP) [Time] 94.8 s High 23.0-32.4 [facility] Comment on above: Order Comment: Speci men Type: BLOOD SPECIMEN Order[facility] Facility[facility] Address: [address] [place] [address] Performed By: #### 5 8410-2 #### [facility] CLIA [id number] [address] [place] [address] aPTT Coag (PPP) [Time] 64.9 s High 23.0-32.4 [facility] Comment on above: Order Comment: Speci men Type: BLOOD SPECIMENOrdering Facility: [facility] Address: [address] [place] [address] Performed By: #### P TTAC ####[facility] LABCLIA [id number] [address] [place] SPIROMETRY BASELINE ONLYon 0 07-26-2024 SPIROMETRY BASELINE ONLY [facility] [address] [place] [address], [facility] [address] [place] [address] Test Date: 2024-07-26 Pat Name: MICHELLE MITCHELL Department: Room: Q306-096 Gender: Female Morning Caregiver: : 1980 Requested By: Order Number: [id number] [...] 11:31:34 EDT by Dex Ch MD ID: [id number] Name: MICHELLE MITCHELL Race: White Ht: 63.15 [...] FIF50 4.29 FEF50/FIF50 0.36 90-100 FIVC 2.81 EGS36-10 1.16 1.71 2.91 4.40 39 -2.58 ExpiredTime [...] obtained from [facility] on 07/26/2024.//KJ Normal [facility] Basic metabolic 2000 panelon 07-25-2024 Anion gap [Moles/Vol] 11 mmol/L Normal 8-15 [facility] Comment on above: Order Comment: Speci men Type: BLOOD SPECIMEN Ordering Facility: [facility] Address: [address] [id number] Performed By: #### 5 8410-2 #### [facility] CLIA [id number] [address] [place] [address] [place] Calcium [Mass/Vol] 9.8 mg/dL Normal 8.5-10.2 [facility] Comment on above: Order Comment: Speci men Type: BLOOD SPECIMEN Ordering Facility: [facility] Address: [address] [place], [place] [address] Performed By: #### 5 8410-2 #### [facility] CLIA [id number] [address] [place], [place] [address] [place] Chloride [Moles/Vol] 97 mmol/L Low 98-107 [facility] Comment on above: Order Comment: Speci men Type: BLOOD SPECIMEN Ordering Facility: [facility] Address: [address] [place], [place] [address] Performed By: #### 5 8410-2 #### [facility] CLIA [id number] [address] [place], [place] [address] [place] CO2 [Moles/Vol] 27 mmol/L Normal 22-30 [facility] Comment on above: Order Comment: Speci men Type: BLOOD SPECIMEN Ordering Facility: [facility] Address: [address] [place], [place] [address] Performed By: #### 5 8410-2 #### [facility] CLIA [id number] [address] [place], [place] [address] [place] Creatinine [Mass/Vol] 1.10 mg/dL High 0.58-0.96 [facility] Comment on above: Order Comment: Speci men Type: BLOOD SPECIMEN Ordering Facility: [facility] Address: [address] [id number] Performed By: #### 5 8410-2 #### [facility] CLIA [id number] [address] [place] [address] [place] Creatinine and Glomerular filtration rate.predicted panel (S/P/Bld) 64 mL/min/1.73m??? Normal >=60 [facility] Comment on above: Order Comment: David ponce Type: BLOOD SPECIMEN Ordering Facility: [facility] Address: [address] [place] [address] Result Comment: Vidal mated Glomerular Filtration Rate [...] GFR. Performed By: #### 5 8410-2 #### [facility] CLIA [id number] [address] [place] [address] [place] Glucose [Mass/Vol] 81 mg/dL Normal 74-99 [facility] Comment on above: Order Comment: David ponce Type: BLOOD SPECIMEN Ordering Facility: [facility] Address: [address] [place] [address] Result Comment: The [place] Diabetes Association (ADA) provides guidance for cutoff [...] Standards of Medical Care in Diabetes 2016, [place] Diabetes Association. Diabetes Care. 2016.39(Suppl 1). Performed By: #### 5 8410-2 #### [facility] CLIA [id number] [address] [place] [address] [place] Potassium [Moles/Vol] 5.2 mmol/L High 3.7-5.1 [facility] Comment on above: Order Comment: Speci men Type: BLOOD SPECIMEN Ordering Facility: [facility] Address: [address] [place] [address] Performed By: #### 5 8410-2 #### [facility] CLIA [id number] [address] [place] [address] [place] Sodium [Moles/Vol] 135 mmol/L Low 136-144 [facility] Comment on above: Order Comment: Speci men Type: BLOOD SPECIMEN Ordering Facility: [facility] Address: [address] [place] [address] Performed By: #### 5 8410-2 #### [facility] CLIA [id number] [address] [place] [address] [place] Urea nitrogen [Mass/Vol] 31 mg/dL High 7-21 [facility] Comment on above: Order Comment: Speci men Type: BLOOD SPECIMEN Ordering Facility: [facility] Address: [address] [place] [address] Performed By: #### 5 8410-2 #### [facility] CLIA [id number] [address] [place] [address] [place] CBC panel Auto (Bld)on 07-25 Erythrocyte distribution width (RBC) [Ratio] 14.0 % Normal 11.5-15.0 [facility] Comment on above: Order Comment: Speci men Type: BLOOD SPECIMENOrdering Facility: [facility] Address: [address] [place] [address] Performed By: #### 5 8410-2 ####[facility] LABCLIA [id number] [place] [address] [place] Hematocrit (Bld) [Volume fraction] 50.1 % High 36.0-46.0 [facility] Comment on above: Order Comment: Speci men Type: BLOOD SPECIMENOrdering Facility: [facility] Address: [address] [place] [address] Performed By: #### 5 8410-2 ####[facility] LABCLIA [id number] [place] [address] [place] Hemoglobin (Bld) [Mass/Vol] 16.0 g/dL High 11.5-15.5 [facility] Comment on above: Order Comment: Speci men Type: BLOOD SPECIMENOrdering Facility: [facility] Address: [address] [place] [address] Performed By: #### 5 8410-2 ####[facility] LABCLIA [id number] [place] [address] [place] MCH (RBC) [Entitic mass] 31.1 pg Normal 26.0-34.0 [facility] Comment on above: Order Comment: Speci men Type: BLOOD SPECIMENOrdering Facility: [facility] Address: [address] [place] [address] Performed By: #### 5 8410-2 ####[facility] LABCLIA [id number] [address] [place] MCHC (RBC) [Mass/Vol] 31.9 g/dL Normal 30.5-36.0 [facility] Comment on above: Order Comment: Speci men Type: BLOOD SPECIMENOrdering Facility: [facility] Address: [address] [place] [address] Performed By: #### 5 8410-2 ####[facility] LABCLIA [id number] [place] [address] [place] MCV (RBC) [Entitic vol] 97.5 fL Normal 80.0-100.0 [facility] Comment on above: Order Comment: Speci men Type: BLOOD SPECIMENOrdering Facility: [facility] Address: [address] [place] [address] Performed By: #### 5 8410-2 ####[facility] LABCLIA [id number] [place] [address] [place] Nucleated RBC (Bld) [#/Vol] 10*3/uL Normal <0.01 [facility] Comment on above: Order Comment: Speci men Type: BLOOD SPECIMENOrdering Facility: [facility] Address: [address] [place] [address] Performed By: #### 5 8410-2 ####[facility] LABIA [id number] [place] [address] [place] Platelet mean volume (Bld) [Entitic vol] 10.4 fL Normal 9.0-12.7 [facility] Comment on above: Order Comment: Speci men Type: BLOOD SPECIMENOrdering Facility: [facility] Address: [address] [place] [address] Performed By: #### 5 8410-2 ####[facility] LABIA [id number] [place] [address] [place] Platelets (Bld) [#/Vol] 386 10*3/uL Normal 150-400 [facility] Comment on above: Order Comment: Speci men Type: BLOOD SPECIMENOrdering Facility: [facility] Address: [address] [place] [address] Performed By: #### 5 8410-2 ####[facility] LABIA [id number] [place] [address] [place] RBC (Bld) [#/Vol] 5.14 10*6/uL Normal 3.90-5.20 [facility] Comment on above: Order Comment: Speci men Type: BLOOD SPECIMENOrdering Facility: [facility] Address: [address] [place] [address] Performed By: #### 5 8410-2 ####[facility] LABIA [id number] [place] [address] [place] WBC (Bld) [#/Vol] 21.49 10*3/uL High 3.70-11.00 [facility] Comment on above: Order Comment: Speci men Type: BLOOD SPECIMENOrdering Facility: [facility] Address: [address] [place] [address] Performed By: #### 5 8410-2 ####[facility] LABCLIA [id number] FLACO MONSON [id number] [place] [address] CNOVon 07-25-2024 CNOV Office Visit (CAFLMN ) -------- MICHELLE MITCHELL ([id number]) 1980 F Date Time Provider Department 07/25/24 [...] In Department: CARDIOLOGY Referring Provider: TEJAL RODRÍGUEZ [[id number]] Allergies As of Date: 07/25/2024 Noted Allergy [...] pain [R10.31] (more content not included)... Normal [facility] CONSULTon 07-25-2024 CONSULT HNO ID: [id number] Author: RADU RIVERS MD Service: Cardiovascular Medicine [...] PERMANENT TRANSVENOUS PACEMAKER INSERTION 2006 ICD implant, [facility] ANESTHESIA TUBAL LIGATION/TRANSECTION APPENDECTOMY 05/05/2014 , lap [...] suicidal ideations Ativan [Lorazepam] Vomiting Azithromycin Intolerance Reliance Anaphylaxis Reliance Anaphylaxis pickles Fish Anaphylaxis Levofloxacin In D5w Swelling, Itching IV site swollen, ceased after d/c, redness and itching at site Neurontin [Gabapent* Mental Status Change Shellfish Anaphylaxis Tigan [Trimethobenz* Anaphylaxis Ultram [Tramadol] Hives Pt states she also pukes a lot Vicod (more content not included)... Normal [facility] ECG COMPLETEon 07-25-2024 ECG COMPLETE Ventricular Rate : 6 6 BPM Atrial Rate : 66 BPM P-R Interval : 156 ms QRS Duration : 86 ms Q-T Interval : 414 ms QTC Calculation(Bazett) : 434 ms Calculated P [place] : 18 degrees Calculated R [place] : -73 degrees Calculated T [place] : 73 degrees NORMAL SINUS RHYTHM BIATRIAL ENLARGEMENT LEFT ANTERIOR FASCICULAR BLOCK LEFT VENTRICULAR HYPERTROPHY ( Sunny product , Romhilt-Sheets ) ST & LATERAL T WAVE ABNORMALITY ABNORMAL ECG Confirmed by HIPOLITO DAVIS MD ([id number]) on 08/18/2024 10:33:24 PM NAME : MICHELLE MITCHELL PID : [id number] : 1980 Gender : Female Race : ORD : [id number] Procedure Date : Jul 25 2024 09:39:38 Edit Date : Aug 18 2024 22:33:30 Diagnosis: NORMAL SINUS RHYTHM BIATRIAL ENLARGEMENT LEFT ANTERIOR FASCICULAR BLOCK LEFT VENTRICULAR HYPERTROPHY ( [place] product , Romhilt-Sheets ) ST & LATERAL T WAVE ABNORMALITY ABNORMAL ECG Confirmed by HIPOLITO DAVIS MD ([id number]) on 08/18/2024 10:33:24 PM Test Reason : Chest Pain Location : 353 : J53 J053-11 Overread By : HIPOLITO DAVIS MD Edited By : HIPOLITO DAVIS MD Referred By : MERCY BISHOP Acquired by : INGRID ANGELA [facility] ECHO TRANSESOPHAGEALon 07-25 ECHO TRANSESOPHAGEAL Echocardiography Re port: Transesophageal Echo [facility] J1-5 Date of service: 07/25/2024 3:16:24 PM ADMINISTRATOR Ordering physician: TEJAL RODRÍGUEZ 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 [...] * * * Final * * * Idea Device Medical Image : [id number] Normal [facility] HIGH SENSITIVITY TROPONIN To n 07-25-2024 Troponin T.cardiac High sensitivity method [Mass/Vol] 48 ng/L High <12 [facility] Comment on above: Order Comment: Kianai sol Type: BLOOD SPECIMENOrdering Facility: [facility] Address: [address] [place] [address] Performed By: #### H STNT ####[facility] LABCLIA [id number] [place] [address] [place] Troponin T.cardiac High sensitivity method [Mass/Vol] 50 ng/L High <12 [facility] Comment on above: Order Comment: Speci men Type: BLOOD SPECIMENOrdering Facility: [facility] Address: [address] [place] [address] Performed By: #### H STNT ####[facility] LABCLIA [id number] [address] Troponin T.cardiac High sensitivity method [Mass/Vol] 57 ng/L High <12 [facility] Comment on above: Order Comment: David men Type: BLOOD SPECIMEN [facility] Address: [address] [place] [address] Performed By: #### 5 8410-2 #### [facility] CLIA [id number] [address] [place] [address] [place] HbA1c (Bld)on 07-25-2024 Average glucose Estimated from glycated hemoglobin (Bld) [Mass/Vol] 111 mg/dL Normal [facility] Comment on above: Order Comment: David ponce Type: BLOOD SPECIMENOrdering Facility: [facility] Address: [address] [place] [address] Result Comment: eAG: (Estimated average glucose) is a calculated value from HgbA1c and is u.s. representative of the average blood glucose level in the last 2-3 month period. Performed By: #### 5 5454-3 ####[facility] LABCLIA [id number] [address] [place] HbA1c (Bld) [Mass fraction] 5.5 % Normal 4.3-5.6 [facility] Comment on above: Order Comment: David ponce Type: BLOOD SPECIMENOrdering Facility: [facility] Address: [address] [place] [address] Result Comment: Amer ican Diabetes Association guidelines indicate that patients with HgbA1c in the range 5.7-6.4% are at increased risk for development of diabetes, and intervention by lifestyle modification may be beneficial. HgbA1c greater or equal to 6.5% is considered diagnostic of diabetes. Performed By: #### 5 5454-3 ####[facility] LABCLIA [id number] [address] [place] Magnesium SerPl-mCncon 07-25 Magnesium [Mass/Vol] 2.5 mg/dL High 1.7-2.3 [facility] Comment on above: Order Comment: David ponce Type: BLOOD SPECIMEN [facility] Address: [address] [place] [address] Performed By: #### 5 8410-2 #### [facility] CLIA [id number] [address] [place] [address] [place] NURSING PROGon 07-25-2024 NURSING PROG HNO ID: [id number] Author: DOMINGUEZ OBREGON RN Service: ? Author [...] None REFERRAL (RECOMMENDATION): None Electronically Signed By Dominugez Obregon RN In Department: CARDIOLOGY Normal [facility] PTT, ANTICOAGULANT THERAPYon 07-25-2024 aPTT Coag (PPP) [Time] 48.6 s High 23.0-32.4 [facility] Comment on above: Order Comment: Speci men Type: BLOOD SPECIMEN [facility] Address: [address] [place] [address] Performed By: #### 5 8410-2 #### [facility] CLIA [id number] [address] [place] [address] [place] aPTT Coag (PPP) [Time] 48.0 s High 23.0-32.4 Cl [facility] Comment on above: Order Comment: Speci men Type: BLOOD SPECIMENOrdering Facility: [facility] Address: [address] [place] [address] Performed By: #### P TTAC ####[facility] LABCLIA [id number] [place] [address] [place] TSH SerPl-aCncon 07-25-2024 TSH Qn 3.760 m[IU]/L Normal 0.270-4.20 0 [facility] Comment on above: Order Comment: Speci men Type: BLOOD SPECIMEN [facility] Facility: [facility] Address: [address] [place] [address] Result Comment: If t he patient is , TSH reference range varies by gestational period: First Trimester (weeks 9-12): 0.180-2.990 mIU/L Second Trimester: 0.110-3.980 mIU/L Third Trimester: 0.480-4.710 mIU/L Bacilio Lay et al. A Practical Approach for the Verifications and Determination of Site- and Trimester-Specific Reference Intervals for Thyroid Function tests in . Thyroid, 2019:29:3:412-420. Lopez Recio, et al. 2017 Guidelines of the [place] Thyroid Association for the Diagnosis and Management of Thyroid Disease during and the . Thyroid, 2017:27:3:315-389. Performed By: #### 5 8410-2 #### [facility] CLIA [id number] [address] [place] [address] [place] US LEG VEIN DVT [facility] LABo n 07-25-2024 LEG VEIN D[facility] Non-Invasive Vascular Laboratory [facility] Portable Lower Extremity Venous Duplex Bilateral/Complete Date [...] Joey Kowalski DO, RVT, RPVI Final CC Ide[employer] Device Medical Image : [id number] See Link below for Image Normal [facility] Bacteria Bld Culton 07-25-19 25 Bacteria identified Cx Nom (Bld) CULTURE, BLOOD: No growth 5 days Normal [facility] Comment on above: Performed By: #### 6 00-7 ####[facility] LABCLIA [id number] [address] [place] CONSULTon 07-24-2024 CONSULT HNO ID: [id number] Author: DAINA MCPHERSON MD Service: Infectious Disease [...] ovarian cancer s/p oophorectomy, endometrial cancer, DVT/PE 2016, recent leg abscess for which she was hospitalized from 05/16-05/22/24. She presented with abdominal pain around [facility], for which she had presented several times [...] PERMANENT TRANSVENOUS PACEMAKER INSERTION 2006 ICD implant, [facility] ANESTHESIA TUBAL LIGATION/TRANSECTION APPENDECTOMY 05/05/2014 , lap [...] suicidal ideations Ativan [Lorazepam] Vomiting Azithromycin Intolerance Reliance Anaphylaxis Reliance Anaphylaxis pickles Fish Anaphylaxis Levofloxacin In D5w [...] 2006, deloris (more content not included)... Normal [facility] CRP SerPl HS-mCncon 07-25-19 25 CRP High sensitivity method [Mass/Vol] 0.9 mg/L Normal <3.1 [facility] Comment on above: Order Comment: Speci men Type: BLOOD SPECIMEN [facility] Address: [address] [place] [address] Result Comment: hsCR P < 1.0 mg/L, relative risk is low hsCRP 1.0-3.0 mg/L, relative risk is average hsCRP > 3.0 mg/L, relative risk is high Reference: Yunior TA, Chen GA, Lopez RW, et al. Markers of Inflammation and Cardiovascular Disease. Application to Clinical and Public Health Practice. A Statement for Healthcare Professionals from the Centers for Disease Control and Prevention and the [place] Heart Association. Circulation 2003;107:499-511. Performed By: #### 1 9123-9, 91649-6 #### [facility] CLIA [id number] [address] [place] [address] [place] [address] [place] TID05cq 07-24-2024 ECG01 Ventricular Rate : 6 4 BPM Atrial Rate : 64 BPM P-R Interval : 156 ms QRS Duration : 84 ms Q-T Interval : 426 ms QTC Calculation(Bazett) : 439 ms Calculated P [place] : 29 degrees Calculated R [place] : 259 degrees Calculated T [place] : 62 degrees NORMAL SINUS RHYTHM BIATRIAL ENLARGEMENT RIGHT SUPERIOR AXIS DEVIATION LEFT VENTRICULAR HYPERTROPHY RIGHT VENTRICULAR HYPERTROPHY NONSPECIFIC ST ABNORMALITY ABNORMAL ECG Confirmed by MERCY BRADFORD MD ([id number]) on 08/25/2024 3:54:02 PM NAME : MICHELLE MITCHELL PID : [id number] : 1980 Gender : Female Race : [...] CTS, Acquired by : Carlos Eduardo BONNER [facility] ECHOon 07-24-2024 Echocardiography Echocardiography Rep ort: Transthoracic Echo [facility] Bedside Date of service: 07/24/2024 3:02:30 PM ADMINISTRATOR Ordering physician: TEJAL RODRÍGUEZ Indication: Shortness of [...] the prior echocardiographic exam performed on 04/25/2021 ([facility]). Mobile echodensity reported today as above. MICKI may better assesss. * * * Final * * * CC Idea Device Medical Image : [id number] Normal [facility] ESR Westergren method (Bld) [Velocity]on 07-24-2024 ESR (Bld) [Velocity] 2 mm/h Normal 0-20 [facility] Comment on above: Order Comment: Speci men Type: BLOOD SPECIMENOrdering Facility: [facility] Address: [address] [place] [address] Performed By: #### 4 537-7 ####[facility] LABCLIA [id number] [place] [address] [place] HCG Preg Ur Qlon 07-24-2024 HCG ( test) Ql (U) Negative Normal Negative [facility] Comment on above: Order Comment: Speci men Type: BLOOD SPECIMEN [facility] Address: [address] [place] [address] Result Comment: This test is intended to aid in the early detection of . Very dilute urine samples, as indicated by a low specific gravity, may not contain u.s. representative levels of hCG. This test detects [...] for . Performed By: #### 1 9123-9, 31107-7 #### [facility] CLIA [id number] [address] [place] [address] [place] HISTORY PHYSICALon 5 HISTORY PHYSICAL HNO ID: [id number] Author: CASE FONSECA MD Service: Cardiovascular Medicine Author Type: Physician Type: H&P Filed: 07/25/2024 10:09 Note Text: [facility] CARDIOVASCULAR MEDICINE HISTORY AND PHYSICAL Michelle Mitchell [id number] PRIMARY SERVICE: Cardiovascular Medicine: Imaging DATE OF [...] states she began having abdominal issues around [facility], she went to [facility] [...] PERMANENT TRANSVENOUS PACEMAKER INSERTION 2006 ICD implant, [facility] ANESTHESIA TUBAL LIGATION/TRANSECTION APPENDECTOMY 05/05/2014 , lap [...] 10 mg (more content not included)... Normal [facility] NT-proBNP [facility] 07-24 Natriuretic peptide.B prohormone N-Terminal [Mass/Vol] 3054 pg/mL High <125 [facility] Comment on above: Order Comment: Speci men Type: BLOOD SPECIMEN [facility] Address: [address] [place] [address] Performed By: #### 5 8410-2 #### [facility] CLIA [id number] [address] [place] [address] [place] PTT, ANTICOAGULANT THERAPYon 07-24-2024 aPTT Coag (PPP) [Time] 32.1 s Normal 23.0-32.4 [facility] Comment on above: Order Comment: Speci men Type: BLOOD SPECIMEN [facility] Address: [address] [place] [address] Performed By: #### 1 9123-9, 23857-9 #### [facility] CLIA [id number] [address] [place] [address] [place] TOXICOLOGY SCREEN, ROUTINE U RINEon 07-24-2024 Amphetamines Confirm (U) [Mass/Vol] Negative Normal Negative [facility] Comment on above: Order Comment: Speci men Type: BLOOD SPECIMEN [facility] Address: [address] [place] [address] Result Comment: Cuto ff threshold at 1000 ng/mL. Performed By: #### 1 9123-9, 24855-2 #### [facility] CLIA [id number] [address] [id number] [address] [place] BARBITURATES, URINE Negative Normal Negative [facility] Comment on above: Order Comment: Speci men Type: BLOOD SPECIMEN [facility] Facility[facility] Address: [address] [place] [address] Result Comment: Cuto ff threshold at 200 ng/mL. Performed By: #### 1 9123-9, 76331-7 #### [facility] CLIA [id number] [address] [place] [address] [place] BENZODIAZEPINES, UR Negative Normal Negative [facility] Comment on above: Order Comment: Speci men Type: BLOOD SPECIMEN [facility] Facility[facility] Address: [address] [place] [address] Result Comment: Cuto ff threshold at 200 ng/mL. Performed By: #### 1 9123-9, 50404-8 #### [facility] CLIA [id number] [address] [place] [address] [place] Cannabinoids Screen Ql (U) Negative Normal Negative [facility] Comment on above: Order Comment: Speci men Type: BLOOD SPECIMEN Ordering Facility: [facility] Address: [address] [place] [address] Result Comment: Cuto ff threshold at 50 ng/mL. Performed By: #### 1 9123-9, 98547-5 #### [facility] CLIA [id number] [address] [place] [address] [place] Cocaine Ql (U) Negative Normal Negative [facility] Comment on above: Order Comment: Speci men Type: BLOOD SPECIMEN Ordering Facility: [facility] Address: [address] [place] [address] Result Comment: Cuto ff threshold at 300 ng/mL. Performed By: #### 1 9123-9, 97876-9 #### [facility] CLIA [id number] [address] [place] [address] [place] Ethanol (U) [Mass/Vol] <11 Normal <11 [facility] Comment on above: Order Comment: Speci men Type: BLOOD SPECIMEN Ordering Facility: [facility] Address: [address] [place] [address] Performed By: #### 1 9123-9, 83612-1 #### [facility] CLIA [id number] [address] [place] [address] [place] Opiates Screen Ql (U) Negative Normal Negative [facility] Comment on above: Order Comment: Speci men Type: BLOOD SPECIMEN Ordering Facility: [facility] Address: [address] [place] [address] Result Comment: Cuto ff threshold at 300 ng/mL. Performed By: #### 1 9123-9, 96401-7 #### [facility] CLIA [id number] [address] [place] [address] [place] oxyCODONE cutoff Screen (U) [Mass/Vol] Positive Abnormal Negative [facility] Comment on above: Order Comment: Speci men Type: BLOOD SPECIMEN Ordering Facility: [facility] Address: [address] [place] [address] Result Comment: Cuto ff threshold at 100 ng/mL. Performed By: #### 1 9123-9, 59707-6 #### [facility] CLIA [id number] [address] [place] [address] [place] Phencyclidine Ql (U) Negative Normal Negative [facility] Comment on above: Order Comment: Speci men Type: BLOOD SPECIMEN Ordering Facility: [facility] Address: [address] [place] [address] Result Comment: Cuto ff threshold at 25 ng/mL. Performed By: #### 1 9123-9, 63671-1 #### [facility] CLIA [id number] [address] [place] [address] [place] TYPE + SCREENon 07-24-2024 ABO A Normal [facility] Comment on above: Order Comment: Speci men Type: BLOOD SPECIMEN Ordering Facility: [facility] Address: [address] [place] [address] Performed By: #### 5 8410-2 #### [facility] CLIA [id number] [address] [place] [address] [place] Rh Nom (Bld) Positive Normal [facility] Comment on above: Order Comment: Speci men Type: BLOOD SPECIMEN Ordering Facility: [facility] Address: [address] [place] [address] Performed By: #### 5 8410-2 #### [facility] CLIA [id number] [address] [place] [address] [place] TYPE AND SCREEN EXPIRATION 07/27/2024 23:59 Normal [facility] Comment on above: Order Comment: Speci men Type: BLOOD SPECIMEN Ordering Facility: [facility] Address: [address] [place] [address] Performed By: #### 5 8410-2 #### [facility] CLIA [id number] [address] [place] [address] [place] Urinalysis complete panel (U )on 07-24-2024 Bacteria LM.HPF (Urine sed) [#/Area] Negative Normal Negative [facility] Comment on above: Order Comment: Speci men Type: BLOOD SPECIMEN Ordering Facility: [facility] Address: [address] [place] [address] Performed By: #### 1 9123-9, 87738-7 #### [facility] CLIA [id number] [address] [place], [place] [address] [place] Bilirubin Ql (U) Negative Normal Negative [facility] Comment on above: Order Comment: Speci men Type: BLOOD SPECIMEN Ordering Facility: [facility] Address: [address] [place] [address] Performed By: #### 1 9123-9, 07900-6 #### [facility] CLIA [id number] [address] [place] [address] [place] Clarity (Unsp spec) Clear Normal Clear [facility] Comment on above: Order Comment: Speci men Type: BLOOD SPECIMEN Ordering Facility: [facility] Address: [address] [place] [address] Performed By: #### 1 9123-9, 96747-8 #### [facility] CLIA [id number] [address] [place] [address] [place] Color (U) Yellow Normal Yellow [facility] Comment on above: Order Comment: Speci men Type: BLOOD SPECIMEN Ordering Facility: [facility] Address: [address] [place] [address] Performed By: #### 1 9123-9, 20345-7 #### [facility] CLIA [id number] [address] [place] [address] [place] Epithelial cells LM.HPF (Urine sed) [#/Area] None Seen Normal [facility] Comment on above: Order Comment: Speci men Type: BLOOD SPECIMEN Ordering Facility: [facility] Address: [address] [place] [address] Performed By: #### 1 91239, #### [facility] CLIA [id number] [address] [place] [address] [place] Glucose Test strip (U) [Mass/Vol] Trace Abnormal Negative [facility] Comment on above: Order Comment: Speci men Type: BLOOD SPECIMEN Ordering Facility: [facility] Address: [address] [place] [address] Performed By: #### 1 9123-9, 39885-2 #### [facility] CLIA [id number] [address] [place] [address] [place] Hemoglobin Ql (U) Negative Normal Negative [facility] Comment on above: Order Comment: Speci men Type: BLOOD SPECIMEN Ordering Facility: [facility] Address: [address] [place] [address] Performed By: #### 1 9123-9, 77651-4 #### [facility] CLIA [id number] [address] [place] [address] [place] Hyaline casts (Urine sed) [#/Area] 1-3 /LPF Abnormal 0 /LPF [facility] Comment on above: Order Comment: Speci men Type: BLOOD SPECIMEN Ordering Facility: [facility] Address: [address] [place] [address] Performed By: #### 1 9123-9, 35674-0 #### [facility] CLIA [id number] [address] [place] [address] [place] Ketones Ql (U) Negative Normal Negative [facility] Comment on above: Order Comment: Speci men Type: BLOOD SPECIMEN Ordering Facility: [facility] Address: [address] [place] [address] Performed By: #### 1 91239, 29059-2 #### [facility] CLIA [id number] [address] [place] [address] [place] Leukocyte esterase Test strip Ql (U) Negative Normal Negative [facility] Comment on above: Order Comment: Speci men Type: BLOOD SPECIMEN Ordering Facility: [facility] Address: [address] [place] [address] Performed By: #### 1 91239, 19534-7 #### [facility] CLIA [id number] [address] [place], [place] [address] [place] Nitrite Ql (U) Negative Normal Negative [facility] Comment on above: Order Comment: Speci men Type: BLOOD SPECIMEN Ordering Facility: [facility] Address: [address] [place] [address] Performed By: #### 1 9123-9, 63807-0 #### [facility] CLIA [id number] [address] [place], [place] [address] [place] pH (U) 7.5 [pH] Normal <8.5 [facility] Comment on above: Order Comment: Speci men Type: BLOOD SPECIMEN Ordering Facility: [facility] Address: [address] [place] [address] Performed By: #### 1 9123-9, #### [facility] CLIA [id number] [address] [place] [address] [place] Protein (U) [Mass/Vol] Negative Normal Negative [facility] Comment on above: Order Comment: Speci men Type: BLOOD SPECIMEN Ordering Facility: [facility] Address: [address] [place] [address] Performed By: #### 1 9123-9, #### [facility] CLIA [id number] [address] [place] [address] [place] RBC LM.HPF (Urine sed) [#/Area] 0-2 /HPF Normal 0-2 /HPF [facility] Comment on above: Order Comment: Speci men Type: BLOOD SPECIMEN Ordering Facility: [facility] Address: [address] [place] [address] Performed By: #### 1 9123-9, #### [facility] CLIA [id number] [address] [place] [address] [place] Specific gravity (U) [Rel density] 1.007 Normal 1.005-1.03 0 [facility] Comment on above: Order Comment: Speci men Type: BLOOD SPECIMEN Ordering Facility: [facility] Address: [address] [place] [address] Performed By: #### 1 9123-9, 88974-8 #### [facility] CLIA [id number] [address] [place] [address] [place] Urobilinogen Ql (U) 0.2 EU/dL Normal 0.2-1.0 EU/dL [facility] Comment on above: Order Comment: Speci men Type: BLOOD SPECIMEN Ordering Facility: [facility] Address: [address] [place] [address] Performed By: #### 1 9123-9, 89059-9 #### [facility] CLIA [id number] [address] [place] [address] [place] WBC LM.HPF (Urine sed) [#/Area] 0-5 /HPF Normal 0-5 /HPF [facility] Comment on above: Order Comment: Speci men Type: BLOOD SPECIMEN Ordering Facility: [facility] Address: [address] [place] [address] Performed By: #### 1 9123-9, 08669-7 #### [facility] CLIA [id number] [address] [place] [address] [place] XR ABDOMEN 1V [...] loops of bowel. No focal bony abnormality. [employer] Technician: PSCB Transcribe Date/Time: Jul 24 2024 6:40P Dictated by : ANASTASIA WILLSON MD This examination was interpreted and the report reviewed and electronically signed by: ANASTASIA WILLSON MD on Jul 24 2024 6:42PM EST [id number] Normal [facility] 12 Lead EKGon 07-23-2024 12 Lead EKG Normal [facility] Absolute lymphocyte countOrd ered By: Willian Ovalles on 07-23-2024 Lymphocytes Auto (Unsp spec) [#/Vol] 0.52 10*3/uL Low 0.83-4.51 [facility] Absolute neutrophil countOrd ered By: Willian Ovalles on 07-23-2024 Neutrophils (Bld) [#/Vol] 19.1 10*3/uL High 2.0-7.7 [facility] Anion gap in Serum or Plasma Ordered By: Willian Ovalles on 07-23-2024 Anion gap [Moles/Vol] 13 mmol/L 5-15 [facility] Automated lymphocyte count a s percentage of total leukocytesOrdered By: Willian Ovalles on 07-23-2024 Lymphocytes/100 WBC Auto (Unsp spec) 2.5 % Low [facility] BUN/creatinine ratioOrdered By: Willian Ovalles on 07-23-2024 Urea nitrogen/Creatinine [Mass ratio] 32.9 mg/mg High 12-31 [facility] Basic Metabolic Profile (BMP )on 07-23-2024 BUN/CRE 32.9 RATIO High 12-31 [facility] Comment on above: Performed By: #### L 100.0100, L500.2500 ####[facility] [address] [place], [address] Calcium [Mass/Vol] 9.4 mg/dL Normal 7.6-11.0 [facility] Comment on above: Performed By: #### L 100.0100, L500.2500 ####[facility] [address] [place], [address] Chloride [Moles/Vol] 100 mmol/L Normal 98-108 [facility] Comment on above: Performed By: #### L 100.0100, L500.2500 ####[facility] [address] [place], [address] CO2 [Moles/Vol] 23.1 mmol/L Normal 21.0-32.0 [facility] Comment on above: Performed By: #### L 100.0100, L500.2500 ####[facility] [address] [place], [address] Creatinine [Mass/Vol] 0.93 mg/dL Normal 0.70-1.20 [facility] Comment on above: Performed By: #### L 100.0100, L500.2500 ####[facility] [address] [place], [address] ECRCL 66.66 ml/min Normal 50-250 [facility] Comment on above: Performed By: #### L 100.0100, L500.2500 ####[facility] [address] [place], [address] GAP 13 Normal 5-15 [facility] Comment on above: Performed By: #### L 100.0100, L500.2500 ####[facility] [address] [place], [address] GFR/1.73 sq M.predicted among non-blacks MDRD (S/P/Bld) [Vol rate/Area] 78 mL/min/{1.73_m2} Normal >60 [facility] Comment on above: Result Comment: mL/m in/1.73m2 CKD-EPI Creatinine Equation (2020) Performed By: #### L 100.0100, L500.2500 ####[facility] [address] [place], [address] Glucose [Mass/Vol] 99 mg/dL Normal 70-99 [facility] Comment on above: Performed By: #### L 100.0100, L500.2500 ####[facility] [address] [place], [address] Potassium [Moles/Vol] 4.6 mmol/L Normal 3.3-5.1 [facility] Comment on above: Result Comment: Hemo lysis present, Results??could be affected.?? Performed By: #### L 100.0100, L500.2500 ####[facility] [address] [place], [address] Sodium [Moles/Vol] 136 mmol/L Normal 133-145 [facility] Comment on above: Performed By: #### L 100.0100, L500.2500 ####[facility] [address] [place], [address] Urea nitrogen [Mass/Vol] 30 mg/dL High 4-19 [facility] Comment on above: Performed By: #### L 100.0100, L500.2500 ####[facility] [address] [place], [address] Basophil percentageOrdered B y: Willian Ovalles on 07-23-2024 Basophils/100 WBC (Bld) 0.2 % 0-1 [facility] CBC W/Diff, Automatedon 07-12-2024 Absolute Lymph 0.52 X10 3/uL Low 0.83-4.51 [facility] Comment on above: Performed By: #### L 100.0100, L500.2500 ####[facility] [address] [place], [address] Absolute Neut 19.1 X10 3/uL High 2.0-7.7 [facility] Comment on above: Performed By: #### L 100.0100, L500.2500 ####[facility] [address] [place], [address] Basophils/100 WBC (Bld) 0.2 % Normal 0-1 [facility] Comment on above: Performed By: #### L 100.0100, L500.2500 ####[facility] [address] [place], [address] Eosinophils/100 WBC (Bld) 0.0 % Normal 0-5 [facility] Comment on above: Performed By: #### L 100.0100, L500.2500 ####[facility] [address] [place], [address] Erythrocyte distribution width (RBC) [Ratio] 13.9 % Normal 11.6-14.6 [facility] Comment on above: Performed By: #### L 100.0100, L500.2500 ####[facility] [address] [place], [address] Hematocrit (Bld) [Volume fraction] 45.5 % Normal 37-47 [facility] Comment on above: Performed By: #### L 100.0100, L500.2500 ####[facility] [address] [place], [address] Hemoglobin (Bld) [Mass/Vol] 15.2 g/dL High 12.0-15.0 [facility] Comment on above: Performed By: #### L 100.0100, L500.2500 ####[facility] [address] [place], [address] IG% 1.500 High 0.0-0.9 [facility] Comment on above: Result Comment: IG% - Immature Granulocytes (promyelocytes, myelocytes andmetamyelocytes) > 1% indicates that a LEFT SHIFT is Present. Performed By: #### L 100.0100, L500.2500 ####[facility] [address] [place], [address] Lymphocytes/100 WBC (Bld) 2.5 % Low 19-41 [facility] Comment on above: Performed By: #### L 100.0100, L500.2500 ####[facility] [address] [place], [address] MCH (RBC) [Entitic mass] 32.4 pg High 27.0-32.0 [facility] Comment on above: Performed By: #### L 100.0100, L500.2500 ####[facility] [address] [place], [address] MCHC (RBC) [Mass/Vol] 33.4 g/dL Normal 32-36 [facility] Comment on above: Performed By: #### L 100.0100, L500.2500 ####[facility] [address] [place], [address] MCV (RBC) [Entitic vol] 97.0 fL Normal 81-99 [facility] Comment on above: Performed By: #### L 100.0100, L500.2500 ####[facility] [address] [place], [address] Monocytes/100 WBC (Bld) 2.5 % Normal 0-10 [facility] Comment on above: Performed By: #### L 100.0100, L500.2500 ####[facility] [address] [place], [address] Neutrophils/100 WBC (Bld) 93.3 % High 47-70 [facility] Comment on above: Performed By: #### L 100.0100, L500.2500 ####[facility] [address] [place], [address] Nucleated RBC (Bld) [#/Vol] 0 10*3/uL Normal 0-5 [facility] Comment on above: Performed By: #### L 100.0100, L500.2500 ####[facility] [address] [place], [address] Platelet mean volume (Bld) [Entitic vol] 10.6 fL Normal 6.2-12.0 [facility] Comment on above: Performed By: #### L 100.0100, L500.2500 ####[facility] [address] [place], [address] Platelets (Bld) [#/Vol] 372 10*3/uL Normal 150-450 [facility] Comment on above: Performed By: #### L 100.0100, L500.2500 ####[facility] [address] [place], [address] RBC (Bld) [#/Vol] 4.69 10*6/uL Normal 4.2-5.4 [facility] Comment on above: Performed By: #### L 100.0100, L500.2500 ####[facility] [address] [place], [address] RDW SD 49.4 fl High 35.1-43.9 [facility] Comment on above: Performed By: #### L 100.0100, L500.2500 ####[facility] [address] [place], [address] WBC (Bld) [#/Vol] 20.5 10*3/uL High 4.4-11.0 [facility] Comment on above: Performed By: #### L 100.0100, L500.2500 ####[facility] [address] [place], [address] Carbon dioxide, total [Moles /volume] in Central venous bloodOrdered By: Willian Ovalles on 07-23-2024 CO2 [Moles/Vol] 23.1 mmol/L 21.0-32.0 [facility] Chloride assayOrdered By: Fior Ovalles on 07-23-2024 Chloride [Moles/Vol] 100 mmol/L 98-108 [facility] Eosinophil percentageOrdered By: Willian Ovalles on 07-23-2024 Eosinophils/100 WBC (Bld) 0.0 % 0-5 [facility] Erythrocyte distribution wid th ratioOrdered By: Willian Ovalles on 07-23-2024 Erythrocyte distribution width (RBC) [Ratio] 13.9 % 11.6-14.6 [facility] Erythrocyte distribution wid th standard deviationOrdered By: Willian Ovalles on 07-23-2024 Erythrocyte distribution width (RBC) [Ratio] 49.4 fl High 35.1-43.9 [facility] Glomerular filtration rate ( GFR) estimation/1.73 sq m using serum, plasma, or whole bOrdered By: Willian Ovalles on 07-23-2024 GFR/1.73 sq M.predicted among non-blacks MDRD (S/P/Bld) [Vol rate/Area] 78 mL/min/{1.73_m2} >60 [facility] Comment on above: mL/min/1.73m2 CKD-EP I Creatinine Equation (2020) Hematocrit Auto (Bld) [Volum e fraction]Ordered By: Willian Ovalles on 07-23-2024 Hematocrit (Bld) [Volume fraction] 45.5 % 37-47 [facility] Hemoglobin measurementOrdere d By: Willian Ovalles on 07-23-2024 Hemoglobin (Bld) [Mass/Vol] 15.2 g/dL High 12.0-15.0 [facility] Immature granulocytes/100 WB C Auto (Bld)Ordered By: Willian Ovalles on 07-23-2024 Immature granulocytes/100 WBC (Bld) 1.500 % High 0.0-0.9 [facility] Comment on above: IG% - Immature Granu locytes (promyelocytes, myelocytes and metamyelocytes) > 1% indicates that a LEFT SHIFT is Present. MCV (mean corpuscular volume ) determinationOrdered By: Willian Ovalles on 07-23-2024 MCV (RBC) [Entitic vol] 97.0 fL 81-99 [facility] Mean corpuscular hemoglobin (MCH) determinationOrdered By: Willian Ovalles on 07-23-2024 MCH (RBC) [Entitic mass] 32.4 pg High 27.0-32.0 [facility] Mean corpuscular hemoglobin concentration (MCHC) determinationOrdered By: Willian Ovalles on 07-23-2024 MCHC (RBC) [Mass/Vol] 33.4 g/dL 32-36 [facility] Mean platelet volume determi nationOrdered By: Willian Ovalles on 07-23-2024 Platelet mean volume (Bld) [Entitic vol] 10.6 fL 6.2-12.0 [facility] Monocyte percentageOrdered B y: Willian Ovalles on 07-23-2024 Monocytes/100 WBC (Bld) 2.5 % 0-10 [facility] Neutrophil percentageOrdered By: Willian Ovalles on 07-23-2024 Neutrophils/100 WBC (Bld) 93.3 % High 47-70 [facility] Nucleated red blood cell per centageOrdered By: Willian Ovalles on 07-23-2024 Nucleated RBC/100 WBC (Bld) [Ratio] 0 % 0-5 [facility] Platelet countOrdered By: Fior Ovalles on 07-23-2024 Platelets (Bld) [#/Vol] 372 10*3/uL 150-450 [facility] Potassium measurement (mass/ volume)Ordered By: Willian Ovalles on 07-23-2024 Potassium (Unsp spec) [Mass/Vol] 4.6 mmol/L 3.3-5.1 [facility] Comment on above: Hemolysis present, R esults could be affected. RBC Auto (Bld) [#/Vol]Ordere d By: Willian Ovalles on 07-23-2024 RBC (Bld) [#/Vol] 4.69 10*6/uL 4.2-5.4 [facility] Serum creatinine measurement (mass/volume)Ordered By: Willian Ovalles on 07-23-2024 Creatinine [Mass/Vol] 0.93 mg/dL 0.70-1.20 [facility] Serum glucose measurement (m ass/volume)Ordered By: Willian Ovalles on 07-23-2024 Glucose [Mass/Vol] 99 mg/dL 70-99 [facility] Serum or plasma calcium leslie urement (mass/volume)Ordered By: Willian Ovalles on 07-23-2024 Calcium [Mass/Vol] 9.4 mg/dL 7.6-11.0 [facility] Serum or plasma urea nitroge n measurement (mass/volume)Ordered By: Willian Ovalles on 07-23-2024 Urea nitrogen [Mass/Vol] 30 mg/dL High 4-19 [facility] Sodium levelOrdered By: Willian Ovalles on 07-23-2024 Sodium [Moles/Vol] 136 mmol/L 133-145 [facility] Venous duplex ultrasound rep ortOrdered By: Willian Colón on 07-23-2024 US Vein [facility] [address] [place] [address] Venous Duplex US - Wan Extrem 07/23/24 0803 MR#: [id number] Acct: [id number] Name: MICHELLE MITCHELL Rep #:[id number] : 1980 43 From: Willian Arciniega Attending Dr: Dr. Willian Ovalles DO Status: ADM IN Ordering Dr: Sergio Umaña DO Date: 07/21/24 Location: 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, [address] Calcium [Mass/Vol] 9.1 mg/dL Normal 7.6-11.0 [facility] Comment on above: Performed By: #### L 100.0100, L500.2500 ####[facility] [address] [place], [address] Chloride [Moles/Vol] 100 mmol/L Normal 98-108 [facility] Comment on above: Performed By: #### L 100.0100, L500.2500 ####[facility] [address] [place], [address] CO2 [Moles/Vol] 20.0 mmol/L Low 21.0-32.0 [facility] Comment on above: Performed By: #### L 100.0100, L500.2500 ####[facility] [address] [place], [address] Creatinine [Mass/Vol] 1.05 mg/dL Normal 0.70-1.20 [facility] Comment on above: Performed By: #### L 100.0100, L500.2500 ####[facility] [address] [place], [address] ECRCL 59.04 ml/min Normal 50-250 [facility] Comment on above: Performed By: #### L 100.0100, L500.2500 ####[facility] [address] [place], [address] GAP 15 Normal 5-15 [facility] Comment on above: Performed By: #### L 100.0100, L500.2500 ####[facility] [address] [place], [address] GFR/1.73 sq M.predicted among non-blacks MDRD (S/P/Bld) [Vol rate/Area] 67 mL/min/{1.73_m2} Normal >60 [facility] Comment on above: Result Comment: mL/m in/1.73m2 CKD-EPI Creatinine Equation (2020) Performed By: #### L 100.0100, L500.2500 ####[facility] [address] [place], [address] Glucose [Mass/Vol] 112 mg/dL High 70-99 [facility] Comment on above: Performed By: #### L 100.0100, L500.2500 ####[facility] [address] [place], [address] Potassium [Moles/Vol] 4.0 mmol/L Normal 3.3-5.1 [facility] Comment on above: Performed By: #### L 100.0100, L500.2500 ####[facility] [address] [place], [address] Sodium [Moles/Vol] 135 mmol/L Normal 133-145 [facility] Comment on above: Performed By: #### L 100.0100, L500.2500 ####[facility] [address] [place], [address] Urea nitrogen [Mass/Vol] 29 mg/dL High 4-19 [facility] Comment on above: Performed By: #### L 100.0100, L500.2500 ####[facility] [address] [place], [address] Blood cultureOrdered By: Amber Ovalles on 07-22-2024 Bacteria identified Cx Nom (Bld) No growth in 5 days. [facility] Bacteria identified Cx Nom (Bld) No growth in 5 days. [facility] CBC W/Diff, Automatedon 07-12 Absolute Lymph 0.95 X10 3/uL Normal 0.83-4.51 [facility] Comment on above: Performed By: #### L 100.0100, L500.2500 ####[facility] [address] [place], [address] Absolute Neut 13.0 X10 3/uL High 2.0-7.7 [facility] Comment on above: Performed By: #### L 100.0100, L500.2500 ####[facility] [address] [place], [address] Basophils/100 WBC (Bld) 0.3 % Normal 0-1 [facility] Comment on above: Performed By: #### L 100.0100, L500.2500 ####[facility] [address] [place], [address] Eosinophils/100 WBC (Bld) 0.2 % Normal 0-5 [facility] Comment on above: Performed By: #### L 100.0100, L500.2500 ####[facility] [address] [place], [address] Erythrocyte distribution width (RBC) [Ratio] 14.1 % Normal 11.6-14.6 [facility] Comment on above: Performed By: #### L 100.0100, L500.2500 ####[facility] [address] [place], [address] Hematocrit (Bld) [Volume fraction] 39.1 % Normal 37-47 [facility] Comment on above: Performed By: #### L 100.0100, L500.2500 ####[facility] [address] [place], [address] Hemoglobin (Bld) [Mass/Vol] 12.7 g/dL Normal 12.0-15.0 [facility] Comment on above: Performed By: #### L 100.0100, L500.2500 ####[facility] [address] [place], [address] IG% 1.200 High 0.0-0.9 [facility] Comment on above: Result Comment: IG% - Immature Granulocytes (promyelocytes, myelocytes andmetamyelocytes) > 1% indicates that a LEFT SHIFT is Present. Performed By: #### L 100.0100, L500.2500 ####[facility] [address] [place], [address] Lymphocytes/100 WBC (Bld) 6.4 % Low 19-41 [facility] Comment on above: Performed By: #### L 100.0100, L500.2500 ####[facility] [address] [place], [address] MCH (RBC) [Entitic mass] 32.1 pg High 27.0-32.0 [facility] Comment on above: Performed By: #### L 100.0100, L500.2500 ####[facility] [address] [place], [address] MCHC (RBC) [Mass/Vol] 32.5 g/dL Normal 32-36 [facility] Comment on above: Performed By: #### L 100.0100, L500.2500 ####[facility] [address] [place], [address] MCV (RBC) [Entitic vol] 98.7 fL Normal 81-99 [facility] Comment on above: Performed By: #### L 100.0100, L500.2500 ####[facility] [address] [place], [address] Monocytes/100 WBC (Bld) 4.8 % Normal 0-10 [facility] Comment on above: Performed By: #### L 100.0100, L500.2500 ####[facility] [address] [place], [address] Neutrophils/100 WBC (Bld) 87.1 % High 47-70 [facility] Comment on above: Performed By: #### L 100.0100, L500.2500 ####[facility] [address] [place], [address] Nucleated RBC (Bld) [#/Vol] 0 10*3/uL Normal 0-5 [facility] Comment on above: Performed By: #### L 100.0100, L500.2500 ####[facility] [address] [place], [address] Platelet mean volume (Bld) [Entitic vol] 11.1 fL Normal 6.2-12.0 [facility] Comment on above: Performed By: #### L 100.0100, L500.2500 ####[facility] [address] [place], [address] Platelets (Bld) [#/Vol] 280 10*3/uL Normal 150-450 [facility] Comment on above: Performed By: #### L 100.0100, L500.2500 ####[facility] [address] [place], [address] RBC (Bld) [#/Vol] 3.96 10*6/uL Low 4.2-5.4 [facility] Comment on above: Performed By: #### L 100.0100, L500.2500 ####[facility] [address] [place], [address] RDW SD 51.6 fl High 35.1-43.9 [facility] Comment on above: Performed By: #### L 100.0100, L500.2500 ####[facility] [address] [place], [address] WBC (Bld) [#/Vol] 14.9 10*3/uL High 4.4-11.0 [facility] Comment on above: Performed By: #### L 100.0100, L500.2500 ####[facility] [address] [place], [address] Bilirubin, totalOrdered By: Sergio Whalen on 07-21-2024 Bilirubin [Mass/Vol] 0.59 mg/dL 0.00-1.30 [facility] CBC W/Diff, Automatedon 07-12 Absolute Lymph 0.59 X10 3/uL Low 0.83-4.51 [facility] Comment on above: Performed By: #### L 500.4050, L100.0100, L500.4100, L501.2300 ####[facility] [address] [place], [address] Absolute Neut 15.8 X10 3/uL High 2.0-7.7 [facility] Comment on above: Performed By: #### L 500.4050, L100.0100, L500.4100, L501.2300 ####[facility] [address] [place], [address] Basophils/100 WBC (Bld) 0.2 % Normal 0-1 [facility] Comment on above: Performed By: #### L 500.4050, L100.0100, L500.4100, L501.2300 ####[facility] [address] [place], [address] Eosinophils/100 WBC (Bld) 0.1 % Normal 0-5 [facility] Comment on above: Performed By: #### L 500.4050, L100.0100, L500.4100, L501.2300 ####[facility] [address] [place], [address] Erythrocyte distribution width (RBC) [Ratio] 14.2 % Normal 11.6-14.6 [facility] Comment on above: Performed By: #### L 500.4050, L100.0100, L500.4100, L501.2300 ####[facility] [address] [place], [address] Hematocrit (Bld) [Volume fraction] 41.0 % Normal 37-47 [facility] Comment on above: Performed By: #### L 500.4050, L100.0100, L500.4100, L501.2300 ####[facility] [address] [place], [address] Hemoglobin (Bld) [Mass/Vol] 13.6 g/dL Normal 12.0-15.0 [facility] Comment on above: Performed By: #### L 500.4050, L100.0100, L500.4100, L501.2300 ####[facility] [address] [place], [address] IG% 1.000 High 0.0-0.9 [facility] Comment on above: Result Comment: IG% - Immature Granulocytes (promyelocytes, myelocytes andmetamyelocytes) > 1% indicates that a LEFT SHIFT is Present. Performed By: #### L 500.4050, L100.0100, L500.4100, L501.2300 ####[facility] [address] [place], [address] Lymphocytes/100 WBC (Bld) 3.5 % Low 19-41 [facility] Comment on above: Performed By: #### L 500.4050, L100.0100, L500.4100, L501.2300 ####[facility] [address] [place], [address] MCH (RBC) [Entitic mass] 32.3 pg High 27.0-32.0 [facility] Comment on above: Performed By: #### L 500.4050, L100.0100, L500.4100, L501.2300 ####[facility] [address] [place], [address] MCHC (RBC) [Mass/Vol] 33.2 g/dL Normal 32-36 [facility] Comment on above: Performed By: #### L 500.4050, L100.0100, L500.4100, L501.2300 ####[facility] [address] [place], [address] MCV (RBC) [Entitic vol] 97.4 fL Normal 81-99 [facility] Comment on above: Performed By: #### L 500.4050, L100.0100, L500.4100, L501.2300 ####[facility] [address] [place], [address] Monocytes/100 WBC (Bld) 2.6 % Normal 0-10 [facility] Comment on above: Performed By: #### L 500.4050, L100.0100, L500.4100, L501.2300 ####[facility] [address] [place], [address] Neutrophils/100 WBC (Bld) 92.6 % High 47-70 [facility] Comment on above: Performed By: #### L 500.4050, L100.0100, L500.4100, L501.2300 ####[facility] [address] [place], [address] Nucleated RBC (Bld) [#/Vol] 0 10*3/uL Normal 0-5 [facility] Comment on above: Performed By: #### L 500.4050, L100.0100, L500.4100, L501.2300 ####[facility] [address] [place], [address] Platelet mean volume (Bld) [Entitic vol] 10.3 fL Normal 6.2-12.0 [facility] Comment on above: Performed By: #### L 500.4050, L100.0100, L500.4100, L501.2300 ####[facility] [address] [place], [address] Platelets (Bld) [#/Vol] 307 10*3/uL Normal 150-450 [facility] Comment on above: Performed By: #### L 500.4050, L100.0100, L500.4100, L501.2300 ####[facility] [address] [place], [address] RBC (Bld) [#/Vol] 4.21 10*6/uL Normal 4.2-5.4 [facility] Comment on above: Performed By: #### L 500.4050, L100.0100, L500.4100, L501.2300 ####[facility] [address] [place], [address] RDW SD 51.1 fl High 35.1-43.9 [facility] Comment on above: Performed By: #### L 500.4050, L100.0100, L500.4100, L501.2300 ####[facility] [address] [place], [address] WBC (Bld) [#/Vol] 17.0 10*3/uL High 4.4-11.0 [facility] Comment on above: Performed By: #### L 500.4050, L100.0100, L500.4100, L501.2300 ####[facility] [address] [place], [address] Calculated very low density lipoprotein (VLDL) cholesterol measurementOrdered By: Sergio Whalen on 07-21-2024 Calculated very low density lipoprotein (VLDL) cholesterol measurement 45 mg/dL High 5-40 [facility] Comprehensive Metabolic Prof ilon 07-21-2024 Albumin [Mass/Vol] 4.4 g/dL Normal 3.5-5.0 [facility] Comment on above: Performed By: #### L 500.4050, L100.0100, L500.4100, L501.2300 ####[facility] [address] [place], [address] Albumin/Globulin [Mass ratio] 1.6 {ratio} Normal 0.9-2.4 [facility] Comment on above: Performed By: #### L 500.4050, L100.0100, L500.4100, L501.2300 ####[facility] [address] [place], [address] ALK PHOS 118 U/L High 35-104 [facility] Comment on above: Performed By: #### L 500.4050, L100.0100, L500.4100, L501.2300 ####[facility] [address] [place], [address] ALT [Catalytic activity/Vol] 35 U/L Normal <=34 [facility] Comment on above: Performed By: #### L 500.4050, L100.0100, L500.4100, L501.2300 ####[facility] [address] [place], [address] AST [Catalytic activity/Vol] 29 U/L Normal <=31 [facility] Comment on above: Performed By: #### L 500.4050, L100.0100, L500.4100, L501.2300 ####[facility] [address] [place], [address] Bilirubin [Mass/Vol] 0.59 mg/dL Normal 0.00-1.30 [facility] Comment on above: Performed By: #### L 500.4050, L100.0100, L500.4100, L501.2300 ####[facility] [address] [place], [address] BUN/CRE 23.1 RATIO High 10-20 [facility] Comment on above: Performed By: #### L 500.4050, L100.0100, L500.4100, L501.2300 ####[facility] [address] [place], [address] Calcium [Mass/Vol] 9.3 mg/dL Normal 7.6-11.0 [facility] Comment on above: Performed By: #### L 500.4050, L100.0100, L500.4100, L501.2300 ####[facility] [address] [place], [address] Chloride [Moles/Vol] 102 mmol/L Normal 98-108 [facility] Comment on above: Performed By: #### L 500.4050, L100.0100, L500.4100, L501.2300 ####[facility] [address] [place], [address] CO2 [Moles/Vol] 19.4 mmol/L Low 21.0-32.0 [facility] Comment on above: Performed By: #### L 500.4050, L100.0100, L500.4100, L501.2300 ####[facility] [address] [place], [address] Creatinine [Mass/Vol] 0.99 mg/dL Normal 0.70-1.20 [facility] Comment on above: Performed By: #### L 500.4050, L100.0100, L500.4100, L501.2300 ####[facility] [address] [place], [address] ECRCL 62.62 ml/min Normal 50-250 [facility] Comment on above: Performed By: #### L 500.4050, L100.0100, L500.4100, L501.2300 ####[facility] [address] [place], [address] GAP 14 Normal 5-15 [facility] Comment on above: Performed By: #### L 500.4050, L100.0100, L500.4100, L501.2300 ####[facility] [address] [place], [address] GFR/1.73 sq M.predicted among non-blacks MDRD (S/P/Bld) [Vol rate/Area] 72 mL/min/{1.73_m2} Normal >60 [facility] Comment on above: Result Comment: mL/m in/1.73m2 CKD-EPI Creatinine Equation (2020) Performed By: #### L 500.4050, L100.0100, L500.4100, L501.2300 ####[facility] [address] [place], [address] Globulin (S) [Mass/Vol] 2.6 g/dL Normal 2.2-4.2 [facility] Comment on above: Performed By: #### L 500.4050, L100.0100, L500.4100, L501.2300 ####[facility] [address] [place], [address] Glucose [Mass/Vol] 131 mg/dL High 70-99 [facility] Comment on above: Performed By: #### L 500.4050, L100.0100, L500.4100, L501.2300 ####[facility] [address] [place], [address] Potassium [Moles/Vol] 4.8 mmol/L Normal 3.3-5.1 [facility] Comment on above: Performed By: #### L 500.4050, L100.0100, L500.4100, L501.2300 ####[facility] [address] [place], [address] Sodium [Moles/Vol] 135 mmol/L Normal 133-145 [facility] Comment on above: Performed By: #### L 500.4050, L100.0100, L500.4100, L501.2300 ####[facility] [address] [place], [address] T PROT 7.0 g/dL Normal 5.9-8.4 [facility] Comment on above: Performed By: #### L 500.4050, L100.0100, L500.4100, L501.2300 ####[facility] [address] [place], [address] Urea nitrogen [Mass/Vol] 23 mg/dL High 4-19 [facility] Comment on above: Performed By: #### L 500.4050, L100.0100, L500.4100, L501.2300 ####[facility] [address] [place], [address] Consultation - Cardiologyon 07-21-2024 Consultation - Cardiology Normal [facility] Echo Completeon 07-21-2024 Echo Complete Normal [facility] Echocardiogram study reportO rdered By: Saman Clay on 07-21-2024 Study report [facility] [address] [place] [address] Echo Complete 07/21/24 1046 MR#: [id number] Acct: [id number] Name: MICHELLE MITCHELL Rep #:[id number] 1 : 1980 43 From: Saman Clay MD Attending Dr: Dr. Willian Ovalles DO Status: ADM IN Ordering Dr: Sergio Umaña DO Date: 07/21/24 Location: 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 Performed By: #### L 501.9985, L501.9520 ####[facility] [address] [place], [place], [address] L499.0043on 07-21-2024 Trop T High Sen 37 ng/L High <=14 [facility] Comment on above: Performed By: #### L 499.0043 ####[facility] [address] [place], [place], [address] LDL calc ser/plasOrdered By: Sergio Whalen on 07-21-2024 Cholesterol in LDL [Mass/Vol] 92 mg/dL [facility] Comment on above: Murylpmnkk=756-946 m g/dL & Higher Hhim=451 mg/dL or greater Laboratory - Chemistry and C hemistry - challengeOrdered By: Sergio Whalen on 07-21-2024 AST [Catalytic activity/Vol] 29 U/L <32 [facility] Lipid Profileon 07-21-2024 CHOL:HDL 4.43 Normal [facility] Comment on above: Performed By: #### L 500.4050, L100.0100, L500.4100, L501.2300 ####[facility] [address] [place], [address] Cholesterol [Mass/Vol] 177 mg/dL Normal <=200 [place] Comment on above: Result Comment: Chol esterol level, Desirable <200 mg/dLBorderline high cholesterol 200-239 mg/dLHigh cholesterol >=240 mg/dLRecommendations of the NCEP Adult Treatment Panel for thefollowing risk-cutoff thresholds for the [place] [facility]. Performed By: #### L 500.4050, L100.0100, L500.4100, L501.2300 ####[facility] [address] [place], [address] Cholesterol in HDL [Mass/Vol] 40 mg/dL Normal [facility] Comment on above: Result Comment: Sophie onal Cholesterol Education Program (NCEP) guidelines:<40 mg/dL: Low HDL-cholesterol (major risk factor for CHD)>= 60 mg/dL: High HDL-cholesterol (negative risk factor forCHD)HDL-cholesterol is affected by a number of factors, e.g.smoking, exercise, hormones, sex and age. Performed By: #### L 500.4050, L100.0100, L500.4100, L501.2300 ####[facility] [address] [place], [address] Cholesterol in LDL [Mass/Vol] 92 mg/dL Normal [facility] Comment on above: Result Comment: Bord jgzpzy=100-633 mg/dL Higher Bsza=886 mg/dL or greater Performed By: #### L 500.4050, L100.0100, L500.4100, L501.2300 ####[facility] [address] [place], [address] Cholesterol in VLDL [Mass/Vol] 45 mg/dL High 5-40 [facility] Comment on above: Performed By: #### L 500.4050, L100.0100, L500.4100, L501.2300 ####[facility] [address] [place], [address] Triglyceride [Mass/Vol] 224 mg/dL High [facility] Comment on above: Result Comment: The drugs N-Acetylcysteine and Metamizole may falselydepress this assay.Normal range: <150 mg/dLBorderline High: 150-199 mg/dLHigh: 200-499 mg/dLVery High: >500 mg/dL Performed By: #### L 500.4050, L100.0100, L500.4100, L501.2300 ####[facility] [address] [place], [address] Magnesiumon 07-21-2024 Magnesium [Mass/Vol] 1.9 mg/dL Normal 1.5-2.2 [facility] Comment on above: Performed By: #### L 501.5200 ####[facility] [address] [place], [address] No Panel InformationOrdered By: Sergio Whalen on 07-21-2024 29 U/L <32 [facility] Phosphoruson 07-21-2024 Phosphate [Mass/Vol] 3.7 mg/dL Normal 2.7-4.5 [facility] Comment on above: Performed By: #### L 500.4050, L100.0100, L500.4100, L501.2300 ####[facility] [address] [place], [address] Screening total cholesterol/ high density lipoprotein (HDL) cholesterol ratioOrdered By: Sergio Whalen on 07-21-2024 Cholesterol.total/Choles terol in HDL [Mass ratio] 4.43 {ratio} [facility] Serum globulin measurementOr dered By: Sergio Whalen on 07-21-2024 Globulin (S) [Mass/Vol] 2.6 g/dL 2.2-4.2 [facility] Serum or plasma alanine hair otransferase (ALT) measurementOrdered By: Sergio Whalen on 07-21-2024 ALT [Catalytic activity/Vol] 35 U/L <35 [facility] Serum or plasma albumin leslie urement (mass/volume)Ordered By: Sergio Whalen on 07-21-2024 Albumin [Mass/Vol] 4.4 g/dL 3.5-5.0 [facility] Serum or plasma albumin/glob ulin mass ratioOrdered By: Sergio Whalen on 07-21-2024 Albumin/Globulin [Mass ratio] 1.6 {ratio} 0.9-2.4 [facility] Serum or plasma alkaline delfin sphatase measurementOrdered By: Sergio Whalen on 07-21-2024 ALP [Catalytic activity/Vol] 118 U/L High 35-104 [facility] Serum or plasma cholesterol in HDL measurement (mass/volume)Ordered By: Sergio Whalen on 07-21-2024 Cholesterol in HDL [Mass/Vol] 40 mg/dL >40 [facility] Comment on above: National Cholesterol Education Program (NCEP) guidelines:<40 mg/dL: Low HDL-cholesterol (major risk factor for CHD)>= 60 mg/dL: High HDL-cholesterol (negative risk factor for CHD)HDL-cholesterol is affected by a number of factors, e.g. smoking, exercise, hormones, sex and age. Serum or plasma cholesterol measurement (mass/volume)Ordered By: Sergio Whalen on 07-21-2024 Cholesterol [Mass/Vol] 177 mg/dL <201 [place] Comment on above: Cholesterol level, D esirable <200 mg/dLBorderline high cholesterol 200-239 mg/dLHigh cholesterol >=240 mg/dLRecommendations of the NCEP Adult Treatment Panel for the following risk-cutoff thresholds for the [place] Citizen [place] population. Thyroid Stim Hormone (TSH)on 07-21-2024 TSH 1.400 uIU/mL Normal 0.300-4.20 0 [facility] Comment on above: Order Comment: ADD O N Performed By: #### L 501.9985, L501.9520 ####[facility] [address] [place], [address] Total proteinOrdered By: Louis Whalen on 07-21-2024 Protein [Mass/Vol] 7.0 g/dL 5.9-8.4 [facility] Triglycerides measurementOrd ered By: Sergio Whalen on 07-21-2024 Triglyceride [Mass/Vol] 224 mg/dL High <199 [facility] Comment on above: The drugs N-Acetylcy steine and Metamizole may falsely depress this assay. Normal range: <150 mg/dLBorderline High: 150-199 mg/dLHigh: 200-499 mg/dLVery High: >500 mg/dL Venous Duplex US - Wan Extre mon 07-21-2024 Venous Duplex US - Wan Extrem Normal [facility] Abdomen/Pelvis W IV Cont ONL Yon 07-20-2024 Abdomen/Pelvis W IV Cont ONLY Normal [facility] Absolute lymphocyte countOrd ered By: Carlos Nair on 07-20-2024 Lymphocytes Auto (Unsp spec) [#/Vol] 0.38 10*3/uL Low 0.83-4.51 [facility] Absolute neutrophil countOrd ered By: Carlos Nair on 07-20-2024 Neutrophils (Bld) [#/Vol] 13.6 10*3/uL High 2.0-7.7 [facility] Anion gap in Serum or Plasma Ordered By: Carlos Nair on 07-20-2024 Anion gap [Moles/Vol] 13 mmol/L 5-15 [facility] Automated lymphocyte count a s percentage of total leukocytesOrdered By: Carlos Nair on 07-20-2024 Lymphocytes/100 WBC Auto (Unsp spec) 2.7 % Low 19-41 [facility] BUN/creatinine ratioOrdered By: Carlos Nair on 07-20-2024 Urea nitrogen/Creatinine [Mass ratio] 21.8 mg/mg High 10-20 [facility] Basophil percentageOrdered B y: Carlos Nair on 07-20-2024 Basophils/100 WBC (Bld) 0.1 % 0-1 [facility] Bilirubin Test strip Ql (U)O rdered By: Carlos Nair on 07-20-2024 Bilirubin Ql (U) Negative Negative [facility] Bilirubin directOrdered By: Carlos Nair on 07-20-2024 Bilirubin.direct [Mass/Vol] 0.29 mg/dL 0.00-0.30 [facility] Bilirubin, totalOrdered By: Carlos Nair on 07-20-2024 Bilirubin [Mass/Vol] 0.61 mg/dL 0.00-1.30 [facility] CBC W/Diff, Automatedon Absolute Lymph 0.38 X10 3/uL Low 0.83-4.51 [facility] Comment on above: Performed By: #### L 500.3400, L300.8000, L100.0100, L503.7505, L501.2450, L500.4050 ####[facility] [address] [place], [address] Absolute Neut 13.6 X10 3/uL High 2.0-7.7 [facility] Comment on above: Performed By: #### L 500.3400, L300.8000, L100.0100, L503.7505, L501.2450, L500.4050 ####[facility] [address] [place], [address] Basophils/100 WBC (Bld) 0.1 % Normal 0-1 [facility] Comment on above: Performed By: #### L 500.3400, L300.8000, L100.0100, L503.7505, L501.2450, L500.4050 ####[facility] [address] [place], [address] Eosinophils/100 WBC (Bld) 0.0 % Normal 0-5 [facility] Comment on above: Performed By: #### L 500.3400, L300.8000, L100.0100, L503.7505, L501.2450, L500.4050 ####[facility] [address] [place], [address] Erythrocyte distribution width (RBC) [Ratio] 14.1 % Normal 11.6-14.6 [facility] Comment on above: Performed By: #### L 500.3400, L300.8000, L100.0100, L503.7505, L501.2450, L500.4050 ####[facility] [address] [place], [address] Hematocrit (Bld) [Volume fraction] 40.2 % Normal 37-47 [facility] Comment on above: Performed By: #### L 500.3400, L300.8000, L100.0100, L503.7505, L501.2450, L500.4050 ####[facility] [address] [place], [address] Hemoglobin (Bld) [Mass/Vol] 13.2 g/dL Normal 12.0-15.0 [facility] Comment on above: Performed By: #### L 500.3400, L300.8000, L100.0100, L503.7505, L501.2450, L500.4050 ####[facility] [address] [place], [address] IG% 1.000 High 0.0-0.9 [facility] Comment on above: Result Comment: IG% - Immature Granulocytes (promyelocytes, myelocytes andmetamyelocytes) > 1% indicates that a LEFT SHIFT is Present. Performed By: #### L 500.3400, L300.8000, L100.0100, L503.7505, L501.2450, L500.4050 ####[facility] [address] [place], [address] Lymphocytes/100 WBC (Bld) 2.7 % Low 19-41 [facility] Comment on above: Performed By: #### L 500.3400, L300.8000, L100.0100, L503.7505, L501.2450, L500.4050 ####[facility] [address] [place], [address] MCH (RBC) [Entitic mass] 32.1 pg High 27.0-32.0 [facility] Comment on above: Performed By: #### L 500.3400, L300.8000, L100.0100, L503.7505, L501.2450, L500.4050 ####[facility] [address] [place], [address] MCHC (RBC) [Mass/Vol] 32.8 g/dL Normal 32-36 [facility] Comment on above: Performed By: #### L 500.3400, L300.8000, L100.0100, L503.7505, L501.2450, L500.4050 ####[facility] [address] [place], [address] MCV (RBC) [Entitic vol] 97.8 fL Normal 81-99 [facility] Comment on above: Performed By: #### L 500.3400, L300.8000, L100.0100, L503.7505, L501.2450, L500.4050 ####[facility] [address] [place], [address] Monocytes/100 WBC (Bld) 1.5 % Normal 0-10 [facility] Comment on above: Performed By: #### L 500.3400, L300.8000, L100.0100, L503.7505, L501.2450, L500.4050 ####[facility] [address] [place], [address] Neutrophils/100 WBC (Bld) 94.7 % High 47-70 [facility] Comment on above: Performed By: #### L 500.3400, L300.8000, L100.0100, L503.7505, L501.2450, L500.4050 ####[facility] [address] [place], [address] Nucleated RBC (Bld) [#/Vol] 0 10*3/uL Normal 0-5 [facility] Comment on above: Performed By: #### L 500.3400, L300.8000, L100.0100, L503.7505, L501.2450, L500.4050 ####[facility] [address] [place], [address] Platelet mean volume (Bld) [Entitic vol] 10.3 fL Normal 6.2-12.0 [facility] Comment on above: Performed By: #### L 500.3400, L300.8000, L100.0100, L503.7505, L501.2450, L500.4050 ####[facility] [address] [place], [address] Platelets (Bld) [#/Vol] 303 10*3/uL Normal 150-450 [facility] Comment on above: Performed By: #### L 500.3400, L300.8000, L100.0100, L503.7505, L501.2450, L500.4050 ####[facility] [address] [place], [address] RBC (Bld) [#/Vol] 4.11 10*6/uL Low 4.2-5.4 [facility] Comment on above: Performed By: #### L 500.3400, L300.8000, L100.0100, L503.7505, L501.2450, L500.4050 ####[facility] [address] [place], [address] RDW SD 51.0 fl High 35.1-43.9 [facility] Comment on above: Performed By: #### L 500.3400, L300.8000, L100.0100, L503.7505, L501.2450, L500.4050 ####[facility] [address] [place], [place], [address] WBC (Bld) [#/Vol] 14.3 10*3/uL High 4.4-11.0 [facility] Comment on above: Performed By: #### L 500.3400, L300.8000, L100.0100, L503.7505, L501.2450, L500.4050 ####[facility] [address] [place], [address] CTA Chest W/WO Contraston CTA Chest W/WO Contrast Normal [facility] Carbon dioxide, total [Moles /volume] in Central venous bloodOrdered By: Carlos Nair on 07-20-2024 CO2 [Moles/Vol] 19.0 mmol/L Low 21.0-32.0 [facility] Chest 1 View (Portable)on Chest 1 View (Portable) Normal [facility] Chloride assayOrdered By: Brandy Nair on 07-20-2024 Chloride [Moles/Vol] 104 mmol/L 98-108 [facility] Comprehensive Metabolic Prof ilon 07-20-2024 Albumin/Globulin [Mass ratio] 1.7 {ratio} Normal 0.9-2.4 [facility] Comment on above: Performed By: #### L 500.3400, L300.8000, L100.0100, L503.7505, L501.2450, L500.4050 ####[facility] [address] [place], [place], [id number] BUN/CRE 21.8 RATIO High 10-20 [facility] Comment on above: Performed By: #### L 500.3400, L300.8000, L100.0100, L503.7505, L501.2450, L500.4050 ####[facility] [address] [place], [address] Calcium [Mass/Vol] 9.3 mg/dL Normal 7.6-11.0 [facility] Comment on above: Performed By: #### L 500.3400, L300.8000, L100.0100, L503.7505, L501.2450, L500.4050 ####[facility] [address] [place], [address] Chloride [Moles/Vol] 104 mmol/L Normal 98-108 [facility] Comment on above: Performed By: #### L 500.3400, L300.8000, L100.0100, L503.7505, L501.2450, L500.4050 ####[facility] [address] [place], [address] CO2 [Moles/Vol] 19.0 mmol/L Low 21.0-32.0 [facility] Comment on above: Performed By: #### L 500.3400, L300.8000, L100.0100, L503.7505, L501.2450, L500.4050 ####[facility] [address] [place], [address] Creatinine [Mass/Vol] 0.88 mg/dL Normal 0.70-1.20 [facility] Comment on above: Performed By: #### L 500.3400, L300.8000, L100.0100, L503.7505, L501.2450, L500.4050 ####[facility] [address] [place], [address] ECRCL 70.45 ml/min Normal 50-250 [facility] Comment on above: Performed By: #### L 500.3400, L300.8000, L100.0100, L503.7505, L501.2450, L500.4050 ####[facility] [address] [place], [address] GAP 13 Normal 5-15 [facility] Comment on above: Performed By: #### L 500.3400, L300.8000, L100.0100, L503.7505, L501.2450, L500.4050 ####[facility] [address] [place], [address] GFR/1.73 sq M.predicted among non-blacks MDRD (S/P/Bld) [Vol rate/Area] 83 mL/min/{1.73_m2} Normal >60 [facility] Comment on above: Result Comment: mL/m in/1.73m2 CKD-EPI Creatinine Equation (2020) Performed By: #### L 500.3400, L300.8000, L100.0100, L503.7505, L501.2450, L500.4050 ####[facility] [address] [place], [address] Glucose [Mass/Vol] 171 mg/dL High 70-99 [facility] Comment on above: Performed By: #### L 500.3400, L300.8000, L100.0100, L503.7505, L501.2450, L500.4050 ####[facility] [address] [place], [address] Potassium [Moles/Vol] 4.4 mmol/L Normal 3.3-5.1 [facility] Comment on above: Performed By: #### L 500.3400, L300.8000, L100.0100, L503.7505, L501.2450, L500.4050 ####[facility] [address] [place], [address] Sodium [Moles/Vol] 135 mmol/L Normal 133-145 [facility] Comment on above: Performed By: #### L 500.3400, L300.8000, L100.0100, L503.7505, L501.2450, L500.4050 ####[facility] [address] [place], [place], [address] Urea nitrogen [Mass/Vol] 19 mg/dL Normal 4-19 [facility] Comment on above: Performed By: #### L 500.3400, L300.8000, L100.0100, L503.7505, L501.2450, L500.4050 ####[facility] [address] [place], [address] D-Dimer Quantitative (DVT/PE )on 07-20-2024 D-DIMER QUANT 1.06 FEU/ug/m Invalid Interpretation Code 0.27-0.49 [facility] Comment on above: Result Comment: D-Di denice ELEVATED (>0.49): Additional studies and clinicalassessments are indicated to conclude diagnosis of:Deep Vein Thrombosis (DVT) or Pulmonary Embolism (PE)CRITICAL VALUE CALLED TO 07/20/24 Naga Aguilera.RESULTS READ BACK BY SAME. Performed By: #### L 500.3400, L300.8000, L100.0100, L503.7505, L501.2450, L500.4050 ####[facility] [address] [place], [place], [address] Emergency Department Summary on 07-20-2024 Emergency Department Summary Normal [facility] Eosinophil percentageOrdered By: Carlos Nair on 07-20-2024 Eosinophils/100 WBC (Bld) 0.0 % 0-5 [facility] Erythrocyte distribution wid th ratioOrdered By: Carlos Nair on 07-20-2024 Erythrocyte distribution width (RBC) [Ratio] 14.1 % 11.6-14.6 [facility] Erythrocyte distribution wid th standard deviationOrdered By: Carlos Nair on 07-20-2024 Erythrocyte distribution width (RBC) [Ratio] 51.0 fl High 35.1-43.9 [facility] Glomerular filtration rate ( GFR) estimation/1.73 sq m using serum, plasma, or whole bOrdered By: Carlos Nair on 07-20-2024 GFR/1.73 sq M.predicted among non-blacks MDRD (S/P/Bld) [Vol rate/Area] 83 mL/min/{1.73_m2} >60 [facility] Comment on above: mL/min/1.73m2 CKD-EP I Creatinine Equation (2020) H AND P Exam - [facility] 07-20-2024 H&P Exam - Hospitalist Normal [place] Hematocrit Auto (Bld) [Volum e fraction]Ordered By: Carlos Nair on 07-20-2024 Hematocrit (Bld) [Volume fraction] 40.2 % 37-47 [facility] Hemoglobin A1c percentageOrd ered By: Sergio Whalen on 07-20-2024 HbA1c (Bld) [Mass fraction] 5.6 % <5.7 [facility] Comment on above: Normal < 5.7 % Predi abetic 5.7 - 6.4 % Diabetic >or= 6.5 % Please note range changes. Hemoglobin measurementOrdere d By: Carlos Nair on 07-20-2024 Hemoglobin (Bld) [Mass/Vol] 13.2 g/dL 12.0-15.0 [facility] Hyaline casts LM.LPF (Urine sed) [#/Area]Ordered By: Carlos Nair on 07-20-2024 Hyaline casts (Urine sed) [#/Area] 5 /[LPF] 0-5 [facility] Immature granulocytes/100 WB C Auto (Bld)Ordered By: Carlos Nair on 07-20-2024 Immature granulocytes/100 WBC (Bld) 1.000 % High 0.0-0.9 [facility] Comment on above: IG% - Immature Granu locytes (promyelocytes, myelocytes and metamyelocytes) > 1% indicates that a LEFT SHIFT is Present. Ketones Test strip Ql (U)Ord ered By: Carlos Nair on 07-20-2024 Ketones Ql (U) Negative Negative [facility] L499.0042on 07-20-2024 Trop T High Sen 36 ng/L High <=14 [facility] Comment on above: Performed By: #### L 499.0042 ####[facility] [address] [place], [address] L501.4021on 07-20-2024 Trop T High Sen 27 ng/L High <=14 [facility] Comment on above: Performed By: #### L 501.4021 ####[facility] [address] [place], [address] L503.7505on 07-20-2024 Natriuretic peptide B (Bld) [Mass/Vol] 6468 pg/mL High <=450 [facility] Comment on above: Result Comment: Hear t Failure Unlikely: < 300 pg/mLHeart Failure Likely< 50 Years: > 450 pg/mL50-75 Years: > 900 pg/mL>75 Years: > 1800 pg/mL Performed By: #### L 500.3400, L300.8000, L100.0100, L503.7505, L501.2450, L500.4050 ####[facility] [address] [place], [place], [id number] Laboratory - Chemistry and C hemistry - challengeOrdered By: Carlos Nair on 07-20-2024 AST [Catalytic activity/Vol] 26 U/L <32 [facility] Lipaseon 07-20-2024 Lipase [Catalytic activity/Vol] 32 U/L Normal 13-75 [facility] Comment on above: Result Comment: Plea note:LIPASE revised reference range effective 22.New Lipase methodology. Expected to produce lower valuesthan the previous assay method.NEW Reference Range: 13 - 75 U/L Performed By: #### L 500.3400, L300.8000, L100.0100, L503.7505, L501.2450, L500.4050 ####[facility] [address] [place], [address] Lipase measurementOrdered By : Carlos Nair on 07-20-2024 Lipase [Catalytic activity/Vol] 32 U/L 13-75 [facility] Comment on above: Please note:LIPASE r evised reference range effective 22. New Lipase methodology. Expected to produce lower values than the previous assay method. NEW Reference Range: 13 - 75 U/L Liver Profileon 07-20-2024 Albumin [Mass/Vol] 4.3 g/dL Normal 3.5-5.0 [facility] Comment on above: Performed By: #### L 500.3400, L300.8000, L100.0100, L503.7505, L501.2450, L500.4050 ####[facility] [address] [place], [address] ALK PHOS 116 U/L High 35-104 [facility] Comment on above: Performed By: #### L 500.3400, L300.8000, L100.0100, L503.7505, L501.2450, L500.4050 ####[facility] [address] [place], [address] ALT [Catalytic activity/Vol] 34 U/L Normal <=34 [facility] Comment on above: Performed By: #### L 500.3400, L300.8000, L100.0100, L503.7505, L501.2450, L500.4050 ####[facility] [address] [place], [address] AST [Catalytic activity/Vol] 26 U/L Normal <=31 [facility] Comment on above: Performed By: #### L 500.3400, L300.8000, L100.0100, L503.7505, L501.2450, L500.4050 ####[facility] [address] [place], [address] Bilirubin [Mass/Vol] 0.61 mg/dL Normal 0.00-1.30 [facility] Comment on above: Performed By: #### L 500.3400, L300.8000, L100.0100, L503.7505, L501.2450, L500.4050 ####[facility] [address] [place], [address] Bilirubin.direct [Mass/Vol] 0.29 mg/dL Normal 0.00-0.30 [facility] Comment on above: Performed By: #### L 500.3400, L300.8000, L100.0100, L503.7505, L501.2450, L500.4050 ####[facility] [address] [place], [address] Globulin (S) [Mass/Vol] 2.5 g/dL Normal 2.2-4.2 [facility] Comment on above: Performed By: #### L 500.3400, L300.8000, L100.0100, L503.7505, L501.2450, L500.4050 ####[facility] [address] [place], [address] T PROT 6.8 g/dL Normal 5.9-8.4 [facility] Comment on above: Performed By: #### L 500.3400, L300.8000, L100.0100, L503.7505, L501.2450, L500.4050 ####[facility] [address] [place], [address] MCV (mean corpuscular volume ) determinationOrdered By: Carlos Nair on 07-20-2024 MCV (RBC) [Entitic vol] 97.8 fL 81-99 [facility] Magnesium measurement (mass/ volume)Ordered By: Sergio Whalen on 07-20-2024 Magnesium (Unsp spec) [Mass/Vol] 1.9 mg/dL 1.5-2.2 [facility] Mean corpuscular hemoglobin (MCH) determinationOrdered By: Carlos Nair on 07-20-2024 MCH (RBC) [Entitic mass] 32.1 pg High 27.0-32.0 [facility] Mean corpuscular hemoglobin concentration (MCHC) determinationOrdered By: Carlos Nair on 07-20-2024 MCHC (RBC) [Mass/Vol] 32.8 g/dL 32-36 [facility] Mean platelet volume determi nationOrdered By: Carlos Nair on 07-20-2024 Platelet mean volume (Bld) [Entitic vol] 10.3 fL 6.2-12.0 [facility] Microscopic analysis of urin e for red blood cells (RBC)Ordered By: Carlos Nair on 07-20-2024 Microscopic analysis of urine for red blood cells (RBC) 0-5 SEEN /hpf 0-5 [facility] Monocyte percentageOrdered B y: Carlos Nair on 07-20-2024 Monocytes/100 WBC (Bld) 1.5 % 0-10 [facility] Mucus LM Ql (Urine sed)Order ed By: Carlos Nair on 07-20-2024 Mucus Ql (Urine sed) 1+ /hpf [facility] Natriuretic peptide.B prohor abbey N-Terminal [Mass/volume] in Serum or PlasmaOrdered By: Carlos Nair on 07-20-2024 Natriuretic peptide.B prohormone N-Terminal [Mass/Vol] 6468 pg/mL High <450 [facility] Comment on above: Heart Failure Unlike ly: < 300 pg/mLHeart Failure Likely< 50 Years: > 450 pg/mL50-75 Years: > 900 pg/mL>75 Years: > 1800 pg/mL Neutrophil percentageOrdered By: Carlos Nair on 07-20-2024 Neutrophils/100 WBC (Bld) 94.7 % High 47-70 [facility] Nitrite Test strip Ql (U)Ord ered By: Carlos Nair on 07-20-2024 Nitrite Ql (U) Negative Negative [facility] Nucleated red blood cell per centageOrdered By: Carlos Nair on 07-20-2024 Nucleated RBC/100 WBC (Bld) [Ratio] 0 % 0-5 [facility] Platelet countOrdered By: Brandy Nair on 07-20-2024 Platelets (Bld) [#/Vol] 303 10*3/uL 150-450 [facility] Potassium measurement (mass/ volume)Ordered By: Carlos Nair on 07-20-2024 Potassium (Unsp spec) [Mass/Vol] 4.4 mmol/L 3.3-5.1 [facility] ,Urineon 07-20-2024 Beta HCG ( test) Ql (U) Negative Normal [facility] Comment on above: Result Comment: Very dilute urine specimens, as indicated by a low specificgravity, may not contain u.s. representative levels of hCG.If is still suspected, a first morning urinespecimen should be collected 48 hours later and tested. Performed By: #### L 400.0001, L400.7600 ####[facility] [address] [place], [address] Protein Test strip Ql (U)Ord ered By: Carlos Nair on 07-20-2024 Protein Ql (U) 100 mg/dl High Negative [facility] RBC Auto (Bld) [#/Vol]Ordere d By: Carlos Nair on 07-20-2024 RBC (Bld) [#/Vol] 4.11 10*6/uL Low 4.2-5.4 [facility] Serum creatinine measurement (mass/volume)Ordered By: Carlos Nair on 07-20-2024 Creatinine [Mass/Vol] 0.88 mg/dL 0.70-1.20 [facility] Serum globulin measurementOr dered By: Carlos Nair on 07-20-2024 Globulin (S) [Mass/Vol] 2.5 g/dL 2.2-4.2 [facility] Serum glucose measurement (m ass/volume)Ordered By: Carlos Nair on 07-20-2024 Glucose [Mass/Vol] 171 mg/dL High 70-99 [facility] Serum or plasma alanine hair otransferase (ALT) measurementOrdered By: Carlos Nair on 07-20-2024 ALT [Catalytic activity/Vol] 34 U/L <35 [facility] Serum or plasma albumin leslie urement (mass/volume)Ordered By: Carlos Nair on 07-20-2024 Albumin [Mass/Vol] 4.3 g/dL 3.5-5.0 [facility] Serum or plasma albumin/glob ulin mass ratioOrdered By: Carlos Nair on 07-20-2024 Albumin/Globulin [Mass ratio] 1.7 {ratio} 0.9-2.4 [facility] Serum or plasma alkaline delfin sphatase measurementOrdered By: Carlos Nair on 07-20-2024 ALP [Catalytic activity/Vol] 116 U/L High 35-104 [facility] Serum or plasma calcium leslie urement (mass/volume)Ordered By: Carlos Nair on 07-20-2024 Calcium [Mass/Vol] 9.3 mg/dL 7.6-11.0 [facility] Serum or plasma urea nitroge n measurement (mass/volume)Ordered By: Carlos Nair on 07-20-2024 Urea nitrogen [Mass/Vol] 19 mg/dL 4-19 [facility] Sodium levelOrdered By: Andrae Nair on 07-20-2024 Sodium [Moles/Vol] 135 mmol/L 133-145 [facility] Squamous epithelial cells de tection in urine sediment by light microscopyOrdered By: Carlos Nair on 07-20-2024 Epithelial cells.squamous LM Ql (Urine sed) 5-10 SEEN /hpf 5-10 [facility] TSH DL <= 0.005 mIU/L QnOrde red By: Sergio Whalen on 07-20-2024 TSH Qn 1.400 uIU/mL 0.300-4.20 0 [facility] Total proteinOrdered By: Jacinto Nair on 07-20-2024 Protein [Mass/Vol] 6.8 g/dL 5.9-8.4 [facility] Troponin T.cardiac [Mass/vol ume] in Serum or Plasma by High sensitivity methodOrdered By: Carlos Nair on 07-20-2024 Troponin T.cardiac High sensitivity method [Mass/Vol] 37 ng/L High <14 [facility] Troponin T.cardiac High sensitivity method [Mass/Vol] 36 ng/L High <14 [facility] Troponin T.cardiac High sensitivity method [Mass/Vol] 27 ng/L High <14 [facility] Urinalysis, Completeon 07-20 BACTERIA 2+ /hpf Normal None Seen [facility] Comment on above: Order Comment: CLEAN CATCH Performed By: #### L 400.0001, L400.7600 ####[facility] [address] [place], [address] CAST,HYALINE 5-10 SEEN Normal 0-5 [facility] Comment on above: Order Comment: CLEAN CATCH Performed By: #### L 400.0001, L400.7600 ####[facility] [address] [place], [address] EPI,SQUAMOUS 5-10 SEEN Normal 5-10 [facility] Comment on above: Order Comment: CLEAN CATCH Performed By: #### L 400.0001, L400.7600 ####[facility] [address] [place], [address] Mucus Ql (Urine sed) 1+ /hpf Normal [facility] Comment on above: Order Comment: CLEAN CATCH Performed By: #### L 400.0001, L400.7600 ####[facility] [address] [place], [address] RBC 0-5 SEEN Normal 0-5 [facility] Comment on above: Order Comment: CLEAN CATCH Performed By: #### L 400.0001, L400.7600 ####[facility] [address] [place], [address] BILIRUBIN URINE Negative Normal Negative [facility] Comment on above: Order Comment: CLEAN CATCH Performed By: #### L 400.0001, L400.7600 ####[facility] [address] [place], [address] Clarity (U) Clear Normal Clear [facility] Comment on above: Order Comment: CLEAN CATCH Performed By: #### L 400.0001, L400.7600 ####[facility] [address] [place], [address] Color (U) Straw Normal Yellow [facility] Comment on above: Order Comment: CLEAN CATCH Performed By: #### L 400.0001, L400.7600 ####[facility] [address] [place], [address] GLUCOSE, UR Normal Normal Normal [facility] Comment on above: Order Comment: CLEAN CATCH Performed By: #### L 400.0001, L400.7600 ####[facility] [address] [place], [address] KETONE UR Negative Normal Negative [facility] Comment on above: Order Comment: CLEAN CATCH Performed By: #### L 400.0001, L400.7600 ####[facility] [address] [place], [address] LEUK ESTERASE Negative Normal Negative [facility] Comment on above: Order Comment: CLEAN CATCH Performed By: #### L 400.0001, L400.7600 ####[facility] [address] [place], [address] Nitrite Ql (U) Negative Normal Negative [facility] Comment on above: Order Comment: CLEAN CATCH Performed By: #### L 400.0001, L400.7600 ####[facility] [address] [place], [address] OCCULT BLOOD-UR 25 /ul Abnormal Negative [facility] Comment on above: Order Comment: CLEAN CATCH Performed By: #### L 400.0001, L400.7600 ####[facility] [address] [place], [address] pH UR 6.0 Normal 5.0 - 8.0 [facility] Comment on above: Order Comment: CLEAN CATCH Performed By: #### L 400.0001, L400.7600 ####[facility] [address] [place], [address] PROT DIPSTX 100 mg/dl Abnormal Negative [facility] Comment on above: Order Comment: CLEAN CATCH Performed By: #### L 400.0001, L400.7600 ####[facility] [address] [place], [address] SP.GR. DIPSTX 1.020 Normal 1.002-1.03 0 [facility] Comment on above: Order Comment: CLEAN CATCH Performed By: #### L 400.0001, L400.7600 ####[facility] [address] [place], [address] UROBILI Normal Normal Normal [facility] Comment on above: Order Comment: CLEAN CATCH Performed By: #### L 400.0001, L400.7600 ####[facility] [address] [place], [address] WBC 0 SEEN Normal 0-5 [facility] Comment on above: Order Comment: CLEAN CATCH Performed By: #### L 400.0001, L400.7600 ####[facility] [address] [place], [address] Urine clarityOrdered By: Jacinto Nair on 07-20-2024 Clarity (U) Clear Clear [facility] Urine color determinationOrd ered By: Carlos Nair on 07-20-2024 Color (U) Straw Yellow [facility] Urine glucose detectionOrder ed By: Carlos Nair on 07-20-2024 Glucose Ql (U) Normal mg/dl Normal [facility] Urine leukocyte esterase det ection by dipstickOrdered By: Carlos Nair on 07-20-2024 Leukocyte esterase Test strip Ql (U) Negative Negative [facility] Urine pHOrdered By: Carlos mandel on 07-20-2024 pH (U) 6.0 [pH] 5.0 - 8.0 [facility] Urine testOrdered By: Carlos Nair on 07-20-2024 HCG ( test) Ql (U) Negative [facility] Comment on above: Very dilute urine sp ecimens, as indicated by a low specificgravity, may not contain u.s. representative levels of hCG. If is still suspected, a first morning urinespecimen should be collected 48 hours later and tested. Urine sediment bacteria coun t by microscopy (number/high power field)Ordered By: Carlos Nair on 07-20-2024 Bacteria LM.HPF (Urine sed) [#/Area] 2 /[HPF] None Seen [facility] Urine specific gravity measu rementOrdered By: Carlos Nair on 07-20-2024 Specific gravity (U) [Rel density] 1.020 1.002-1.03 0 [facility] Urine urobilinogen measureme ntOrdered By: Carlos Nair on 07-20-2024 Urobilinogen Ql (U) Normal mg/dl Normal [facility] White blood cell (WBC) count Ordered By: Carlos Nair on 07-20-2024 WBC (Bld) [#/Vol] 14.3 10*3/uL High 4.4-11.0 [facility] White blood cell countOrdere d By: Carlos Nair on 07-20-2024 White blood cell count 0 SEEN /hpf 0-5 [facility] Colonoscopy Reporton 025 Colonoscopy Report Normal [facility] EGD Reporton 07-12-2024 EGD Report Normal [facility] MR/POSTOP.ANEon 07-12-2024 MR/POSTOP.ANE Normal [facility] MR/[id number] 07-12-2024 MR/POSTOPAN2 [facility] Surgery Specimen Level Amber 07-12-2024 Surgery Specimen Level IV [facility] Comment on above: Performed By: #### P SUIV ####[facility] [address], [place], [address] MR/PAT.ANEon 07-11-2024 MR/PAT.ANE Normal [facility] 12 Lead EKG performed by BMS on 07-10-2024 12 Lead EKG performed by BMS [facility] Cardiology Visit Reporton Cardiology Visit Report Normal [facility] MR/PAT.ANEon 07-10-2024 MR/PAT.ANE [facility] CNDSon 07-08-2024 CNDS HNO ID: [id number] Author: DEX WILKINSON MD Service: Family Practice [...] call for appointment?: Yes Dex Wilkinson MD [phone] [facility] [address] [place] [address] PCP Requested Referral GENERAL: alert, no distress, [...] MD FOLLOW-UP APPOINTMENTS ALREADY SCHEDULED WITH A [facility] PROVIDER: No future appointments. ALLERGIES Allergen Reactions Prozac [Fluoxetine * Other: See Comments suicidal ideations Ativan [Lorazepam] Vomiting Azithromycin Intolerance Reliance Anaphylaxis Reliance Anaphylaxis pickles Fish Anaphylaxis Levofloxacin In D5w [...] Your Medications These medications were sent to [facility] [address] [place] [address] - [address] [place] [address] - [phone] [place] [address] dicyclomine 10 mg capsule oxyCODONE IR 5 mg immediate release tablet pantoprazole DR 40 mg tablet psyllium 3.4 gram packet sucralfate 1 gram tablet Additional Information Additional Health Information I Need to Kno (more content not included)... Normal [facility] CBC W Auto Differential pane l (Bld)on 07-07-2024 Basophils (Bld) [#/Vol] 0.03 10*3/uL Normal <0.11 [facility] Comment on above: Order Comment: Speci men Type: BLOOD SPECIMENOrdering Facility: [facility] Address: [address] [place] [address] Performed By: #### 5 7021-8 ####[facility] [id number] [address] [place] Basophils/100 WBC (Bld) 0.3 % Normal [facility] Comment on above: Order Comment: Speci men Type: BLOOD SPECIMENOrdering Facility: [facility] Address: [address] [place] [address] Performed By: #### 5 7021-8 ####[facility]ORY[facility] [id number] [address] [place] Differential cell count method Nom (Bld) Auto Normal [facility] Comment on above: Order Comment: Speci men Type: BLOOD SPECIMENOrdering Facility: [facility] Address: [address] [place] [address] Performed By: #### 5 7021-8 ####[facility] [id number] [address] [place] Eosinophils (Bld) [#/Vol] 0.12 10*3/uL Normal <0.46 [facility] Comment on above: Order Comment: Speci men Type: BLOOD SPECIMENOrdering Facility: [facility] Address: [address] [place] [address] Performed By: #### 5 7021-8 ####[facility]ORY[facility] [id number] [address] Eosinophils/100 WBC (Bld) 1.4 % Normal [facility] Comment on above: Order Comment: Speci men Type: BLOOD SPECIMENOrdering Facility: [facility] Address: [address] [place] [address] Performed By: #### 5 7021-8 ####[facility]ORYCL[facility] [id number] [place] [address] [place] Erythrocyte distribution width (RBC) [Ratio] 14.4 % Normal 11.5-15.0 [facility] Comment on above: Order Comment: Speci men Type: BLOOD SPECIMENOrdering Facility: [facility] Address: [address] [place] [address] Performed By: #### 5 7021-8 ####[facility]ORYCLIA [id number] [place] [address] [place] [facility] [place] Hematocrit (Bld) [Volume fraction] 41.1 % Normal 36.0-46.0 [facility] Comment on above: Order Comment: Speci men Type: BLOOD SPECIMENOrdering Facility: [facility] Address: [address] [place] [address] Performed By: #### 5 7021-8 ####[facility]ORYCLIA [id number] [place] [address] [place] Hemoglobin (Bld) [Mass/Vol] 13.4 g/dL Normal 11.5-15.5 [facility] Comment on above: Order Comment: Speci men Type: BLOOD SPECIMENOrdering Facility: [facility] Address: [address] [place] [address] Performed By: #### 5 7021-8 ####[facility]ORYCL[facility] [id number] [address] [place] Immature granulocytes (Bld) [#/Vol] 0.03 10*3/uL Normal <0.10 [facility] Comment on above: Order Comment: Speci men Type: BLOOD SPECIMENOrdering Facility: [facility] Address: [address] [place] [address] Performed By: #### 5 7021-8 ####[facility]ORYCLIA [id number] [address] Immature granulocytes/100 WBC (Bld) 0.3 % Normal [facility] Comment on above: Order Comment: Speci men Type: BLOOD SPECIMENOrdering Facility: [facility] Address: [address] [place] [address] Performed By: #### 5 7021-8 ####[facility]ORYCL[facility] [id number] [address] Lymphocytes (Bld) [#/Vol] 0.98 10*3/uL Low 1.00-4.00 [facility] Comment on above: Order Comment: Speci men Type: BLOOD SPECIMENOrdering Facility: [facility] Address: [address] [place] [address] Performed By: #### 5 7021-8 ####[facility]ORYCL[facility] [id number] [address] Lymphocytes/100 WBC (Bld) 11.1 % Normal [facility] Comment on above: Order Comment: Speci men Type: BLOOD SPECIMENOrdering Facility: [facility] Address: [address] [place] [address] Performed By: #### 5 7021-8 ####[facility]ORYCL[facility] [id number] [address] MCH (RBC) [Entitic mass] 31.8 pg Normal 26.0-34.0 [facility] Comment on above: Order Comment: Speci men Type: BLOOD SPECIMENOrdering Facility: [facility] Address: [address] [place] [address] Performed By: #### 5 7021-8 ####[facility]ORYCL[facility] [id number] [address] MCHC (RBC) [Mass/Vol] 32.6 g/dL Normal 30.5-36.0 [facility] Comment on above: Order Comment: Speci men Type: BLOOD SPECIMENOrdering Facility: [facility] Address: [address] [place] [address] Performed By: #### 5 7021-8 ####[facility]ORYCLIA [id number] [address] MCV (RBC) [Entitic vol] 97.6 fL Normal 80.0-100.0 [facility] Comment on above: Order Comment: Speci men Type: BLOOD SPECIMENOrdering Facility: [facility] Address: [address] [place] [address] Performed By: #### 5 7021-8 ####[facility]ATORYCLIA [id number] [place] [address] [place] Monocytes (Bld) [#/Vol] 0.44 10*3/uL Normal <0.87 [facility] Comment on above: Order Comment: Speci men Type: BLOOD SPECIMENOrdering Facility: [facility] Address: [address] [place] [address] Performed By: #### 5 7021-8 ####[facility]ORYCLIA [id number] [place] [address] [place] Monocytes/100 WBC (Bld) 5.0 % Normal [facility] Comment on above: Order Comment: Speci men Type: BLOOD SPECIMENOrdering Facility: [facility] Address: [address] [place] [address] Performed By: #### 5 7021-8 ####[facility]ORYCLIA [id number] [place] [address] [place] Neutrophils (Bld) [#/Vol] 7.19 10*3/uL Normal 1.45-7.50 [facility] Comment on above: Order Comment: Speci men Type: BLOOD SPECIMENOrdering Facility: [facility] Address: [address] [place] [address] Performed By: #### 5 7021-8 ####[facility]ORYCLIA [id number] [address] [place] Neutrophils/100 WBC (Bld) 81.9 % Normal [facility] Comment on above: Order Comment: Speci men Type: BLOOD SPECIMENOrdering Facility: [facility] Address: [address] [place] [address] Performed By: #### 5 7021-8 ####[facility]ATORYCLIA [id number] [place] [address] [place] Nucleated RBC (Bld) [#/Vol] 10*3/uL Normal <0.01 [facility] Comment on above: Order Comment: Speci men Type: BLOOD SPECIMENOrdering Facility: [facility] Address: [address] [place] [address] Performed By: #### 5 7021-8 ####[facility]ATORYCLIA [id number] [place] [address] [place] Nucleated RBC/100 WBC (Bld) [Ratio] 0.0 /100 WBC Normal [facility] Comment on above: Order Comment: Speci men Type: BLOOD SPECIMENOrdering Facility: [facility] Address: [address] [place] [address] Performed By: #### 5 7021-8 ####[facility]ATORYCLIA [id number] [place] [address] [place] Platelet mean volume (Bld) [Entitic vol] 10.3 fL Normal 9.0-12.7 [facility] Comment on above: Order Comment: Speci men Type: BLOOD SPECIMENOrdering Facility: [facility] Address: [address] [place] [address] Performed By: #### 5 7021-8 ####[facility]ATORYCLIA [id number] [place] [address] [place] Platelets (Bld) [#/Vol] 241 10*3/uL Normal 150-400 [facility] Comment on above: Order Comment: Speci men Type: BLOOD SPECIMENOrdering Facility: [facility] Address: [address] [place] [address] Performed By: #### 5 7021-8 ####[facility]ATORYCLIA [id number] [place] [address] [place] RBC (Bld) [#/Vol] 4.21 10*6/uL Normal 3.90-5.20 [facility] Comment on above: Order Comment: Speci men Type: BLOOD SPECIMENOrdering Facility: [facility] Address: [address] [place] [address] Performed By: #### 5 7021-8 ####[facility]ATORYCLIA [id number] [place] [address] [place] WBC (Bld) [#/Vol] 8.79 10*3/uL Normal 3.70-11.00 [facility] Comment on above: Order Comment: Speci men Type: BLOOD SPECIMENOrdering Facility: [facility] Address: [address] [place] [id number] Performed By: #### 5 7021-8 ####[facility]ORATORYCLIA [id number] [place] [address] [place] CONSULT PROGon 07-07-2024 CONSULT PROG HNO ID: [id number] Author: KAYLYN ELLIS MD Service: Gastroenterology Author [...] recent colonoscopy report completed December 2023 at [facility] - Consider cardiology consult for #8 [...] looser consistency and with small volume BRB. Virgie colonoscopy records were incomplete as report was [...] Cooperative. NAD EYES: No scleral icterus SKIN: [place] in color. No jaundice LUNGS: Decreased to [...] Ratio <2. (more content not included)... Normal [facility] Comprehensive metabolic 2000 panelon 07-07-2024 Albumin [Mass/Vol] 3.7 g/dL Low 3.9-4.9 [facility] Comment on above: Order Comment: Speci men Type: BLOOD SPECIMENOrdering Facility: [facility] Address: [address] [place] [address] Performed By: #### 2 4323-8 ####[facility]ORYCLIA [id number] [address] STATES [facility] ALP [Catalytic activity/Vol] 118 U/L Normal 34-123 [facility] Comment on above: Order Comment: Speci men Type: BLOOD SPECIMENOrdering Facility: [facility] Address: [address] [place] [address] Performed By: #### 2 4323-8 ####[facility]ORYCLIA [id number] [address] ALT [Catalytic activity/Vol] 24 U/L Normal 7-38 [facility] Comment on above: Order Comment: Speci men Type: BLOOD SPECIMENOrdering Facility: [facility] Address: [address] [place] [address] Performed By: #### 2 4323-8 ####[facility]ATORYCLIA [id number] [address] Anion gap [Moles/Vol] 10 mmol/L Normal 8-15 [facility] Comment on above: Order Comment: Speci men Type: BLOOD SPECIMENOrdering Facility: [facility] Address: [address] [place] [address] Performed By: #### 2 4323-8 ####[facility]ATORYCLIA [id number] [place] [address] [place] AST [Catalytic activity/Vol] 20 U/L Normal 13-35 [facility] Comment on above: Order Comment: Speci men Type: BLOOD SPECIMENOrdering Facility: [facility] Address: [address] [place] [address] Performed By: #### 2 4323-8 ####[facility]ORATORYCLIA [id number] [place] [address] [place] Bilirubin [Mass/Vol] 1.3 mg/dL Normal 0.2-1.3 [facility] Comment on above: Order Comment: Speci men Type: BLOOD SPECIMENOrdering Facility: [facility] Address: [address] [place] [address] Performed By: #### 2 4323-8 ####[facility]ORATORYCLIA [id number] [place] [address] [place] Calcium [Mass/Vol] 9.0 mg/dL Normal 8.5-10.2 [facility] Comment on above: Order Comment: Speci men Type: BLOOD SPECIMENOrdering Facility: [facility] Address: [address] [place] [address] Performed By: #### 2 4323-8 ####[facility] LABORATORYCLIA [id number] [place] [address] [place] Chloride [Moles/Vol] 104 mmol/L Normal 98-107 [facility] Comment on above: Order Comment: Speci men Type: BLOOD SPECIMENOrdering Facility: [facility] Address: [address] [place] [address] Performed By: #### 2 4323-8 ####[facility] LABORATORYCLIA [id number] [place] [address] [place] CO2 [Moles/Vol] 25 mmol/L Normal 22-30 [facility] Comment on above: Order Comment: Speci men Type: BLOOD SPECIMENOrdering Facility: [facility] Address: [address] [place] [address] Performed By: #### 2 4323-8 ####[facility]ORATORYCLIA [id number] [place] [id number] [place] Creatinine [Mass/Vol] 0.81 mg/dL Normal 0.58-0.96 [facility] Comment on above: Order Comment: David ponce Type: BLOOD SPECIMENOrdering Facility: [facility] Address: [address] [place] [address] Performed By: #### 2 4323-8 ####[facility]ATORYCLIA [id number] [place] [id number] [facility] Creatinine and Glomerular filtration rate.predicted panel (S/P/Bld) 92 mL/min/1.73m??? Normal >=60 [facility] Comment on above: Order Comment: David ponce Type: BLOOD SPECIMENOrdering Facility: [facility] Address: [address] [place] [address] Result Comment: Vidal mated Glomerular Filtration Rate [...] actual GFR. Performed By: #### 2 4323-8 ####[facility]ORATORYCLIA [id number] [place] [id number] [place] Glucose [Mass/Vol] 104 mg/dL High 74-99 [facility] Comment on above: Order Comment: David ponce Type: BLOOD SPECIMENOrdering Facility: [facility] Address: [address] [place] [address] Result Comment: The [place] Diabetes Association (ADA) provides guidance for cutoff [...] Standards of Medical Care in Diabetes 2016, [place] Diabetes Association. Diabetes Care. 2016.39(Suppl 1). Performed By: #### 2 4323-8 ####[facility]ORATORYCLIA [id number] [address] Potassium [Moles/Vol] 4.1 mmol/L Normal 3.7-5.1 [facility] Comment on above: Order Comment: Speci men Type: BLOOD SPECIMENOrdering Facility: [facility] Address: [address] [place] [address] Performed By: #### 2 4323-8 ####[facility]ORATORYCLIA [id number] [address] STATES [facility] Protein [Mass/Vol] 6.3 g/dL Normal 6.3-8.0 [facility] Comment on above: Order Comment: Speci men Type: BLOOD SPECIMENOrdering Facility: [facility] Address: [address] [place] [address] Performed By: #### 2 4323-8 ####[facility]ORATORYCLIA [id number] [address] Sodium [Moles/Vol] 139 mmol/L Normal 136-144 [facility] Comment on above: Order Comment: Speci men Type: BLOOD SPECIMENOrdering Facility: [facility] Address: [address] [place] [address] Performed By: #### 2 4323-8 ####[facility]ORATORYCLIA [id number] [address] [place] Urea nitrogen [Mass/Vol] 7 mg/dL Normal 7-21 [facility] Comment on above: Order Comment: Speci men Type: BLOOD SPECIMENOrdering Facility: [facility] Address: [address] [place] [address] Performed By: #### 2 4323-8 ####[facility]ORATORYCLIA [id number] [address] [place] ANES POSTPROC EVALon 07-06-2 025 ANES POSTPROC EVAL HNO ID: [id number] Author: MARVA DAMON MD Service: Anesthesiology Author Type: Anesthesiologist Type: Anesthesia Postprocedure Evaluation Filed: 07/06/2024 10:50 Note Text: POST ANESTHESIA EVALUATION NOTE : 1980 Procedure Summary Date: 07/06/24 Room / Location: [facility] Endoscopy Anesthesia Start: 934 Anesthesia Stop: 954 Procedure: EGD DIAGNOSTIC Diagnosis: (Abdominal pain) Scheduled Providers: Kaylyn Ellis MD; Eliana Ellis APRN.CRNA; Marva Damon MD Responsible Provider: Marva Damon [...] July 06, 2024 TIME: 10:50 AM CSN: [id number] Normal [facility] ANES PRE-OPon 07-06-2024 ANES PRE-OP HNO ID: [id number] Author: MARVA DAMON MD Service: Anesthesiology Author Type: Anesthesiologist Type: Anesthesia Preprocedure Evaluation Filed: 07/06/2024 09:18 Note Text: ANESTHESIOLOGY DAY OF SURGERY NOTE : 1980 Procedure Information Date/Time: 07/06/24 1000 Scheduled providers: Kaylyn Ellis MD; Eliana Ellis APRN.[employer]IST; Marva Damon MD Procedure: EGD DIAGNOSTIC Location: [facility] Endoscopy Estimated body mass index is 22.78 [...] and consent discussed: yes. Patient / Responsible [employer] agrees to proceed: yes Patient / [...] July 06, 2024 TIME: 9:17 AM CSN: [id number] Normal [facility] CBC W Auto Differential pane l (Bld)on 07-06-2024 Basophils (Bld) [#/Vol] 0.03 10*3/uL Normal <0.11 [facility] Comment on above: Order Comment: Speci men Type: BLOOD SPECIMEN [facility] Address: [address] [place] [address] Performed By: #### 5 8410-2 #### [facility] CLIA [id number] [address] [place] [address] [place] Basophils/100 WBC (Bld) 0.3 % Normal [facility] Comment on above: Order Comment: David ponce Type: BLOOD SPECIMEN [facility] Address: [address] [place] [address] Performed By: #### 5 8410-2 #### [facility] CLIA [id number] [address] [place] [address] [place] Differential cell count method Nom (Bld) Auto Normal [facility] Comment on above: Order Comment: David ponce Type: BLOOD SPECIMEN [facility] Address: [address] [place] [address] Performed By: #### 5 8410-2 #### [facility] CLIA [id number] [address] [place] [address] [place] Eosinophils (Bld) [#/Vol] 0.17 10*3/uL Normal <0.46 [facility] Comment on above: Order Comment: Kianai men Type: BLOOD SPECIMEN [facility] Address: [address] [place] [address] Performed By: #### 5 8410-2 #### [facility] CLIA [id number] [address] [place] [address] [place] Eosinophils/100 WBC (Bld) 1.9 % Normal [facility] Comment on above: Order Comment: Speci men Type: BLOOD SPECIMEN [facility] Address: [address] [place] [address] Performed By: #### 5 8410-2 #### [facility] CLIA [id number] [address] [place] Erythrocyte distribution width (RBC) [Ratio] 14.5 % Normal 11.5-15.0 [facility] Comment on above: Order Comment: Speci men Type: BLOOD SPECIMEN [facility] Address: [address] [place] [address] Performed By: #### 5 8410-2 #### [facility] CLIA [id number] [address] [place] Hematocrit (Bld) [Volume fraction] 40.4 % Normal 36.0-46.0 [facility] Comment on above: Order Comment: Speci men Type: BLOOD SPECIMEN [facility] Address: [address] [place] [address] Performed By: #### 5 8410-2 #### [facility] CLIA [id number] [address] [place] [address] [place] Hemoglobin (Bld) [Mass/Vol] 13.3 g/dL Normal 11.5-15.5 [facility] Comment on above: Order Comment: Speci men Type: BLOOD SPECIMEN [facility] Address: [address] [place] [address] Performed By: #### 5 8410-2 #### [facility] CLIA [id number] [address] [place] Immature granulocytes (Bld) [#/Vol] 0.03 10*3/uL Normal <0.10 [facility] Comment on above: Order Comment: Speci men Type: BLOOD SPECIMEN [facility] Address: [address] [place] [address] Performed By: #### 5 8410-2 #### [facility] CLIA [id number] [address] [place] Immature granulocytes/100 WBC (Bld) 0.3 % Normal [facility] Comment on above: Order Comment: Speci men Type: BLOOD SPECIMEN [facility] Address: [address] [place] [address] Performed By: #### 5 8410-2 #### [facility] CLIA [id number] [address] Lymphocytes (Bld) [#/Vol] 1.51 10*3/uL Normal 1.00-4.00 [facility] Comment on above: Order Comment: Speci men Type: BLOOD SPECIMEN [facility] Address: [address] [place] [address] Performed By: #### 5 8410-2 #### [facility] CLIA [id number] [address] Lymphocytes/100 WBC (Bld) 16.6 % Normal [facility] Comment on above: Order Comment: Speci men Type: BLOOD SPECIMEN [facility] Address: [address] [place] [address] Performed By: #### 5 8410-2 #### [facility] CLIA [id number] [address] MCH (RBC) [Entitic mass] 32.6 pg Normal 26.0-34.0 [facility] Comment on above: Order Comment: Speci men Type: BLOOD SPECIMEN [facility] Address: [address] [place] [address] Performed By: #### 5 8410-2 #### [facility] CLIA [id number] [address] MCHC (RBC) [Mass/Vol] 32.9 g/dL Normal 30.5-36.0 [facility] Comment on above: Order Comment: Speci men Type: BLOOD SPECIMEN [facility] Address: [address] [place] [address] Performed By: #### 5 8410-2 #### [facility] CLIA [id number] [address] MCV (RBC) [Entitic vol] 99.0 fL Normal 80.0-100.0 [facility] Comment on above: Order Comment: Speci men Type: BLOOD SPECIMEN [facility] Address: [address] [place] [address] Performed By: #### 5 8410-2 #### [facility] CLIA [id number] [address] [place] [address] [place] Monocytes (Bld) [#/Vol] 0.52 10*3/uL Normal <0.87 [facility] Comment on above: Order Comment: Speci men Type: BLOOD SPECIMEN [facility] Address: [address] [place] [address] Performed By: #### 5 8410-2 #### [facility] CLIA [id number] [address] Monocytes/100 WBC (Bld) 5.7 % Normal [facility] Comment on above: Order Comment: Speci men Type: BLOOD SPECIMEN [facility] Address: [address] [place] [address] Performed By: #### 5 8410-2 #### [facility] CLIA [id number] [address] [place] Neutrophils (Bld) [#/Vol] 6.82 10*3/uL Normal 1.45-7.50 [facility] Comment on above: Order Comment: Speci men Type: BLOOD SPECIMEN [facility] Address: [address] [place] [address] Performed By: #### 5 8410-2 #### [facility] CLIA [id number] [address] [place] Neutrophils/100 WBC (Bld) 75.2 % Normal [facility] Comment on above: Order Comment: Speci men Type: BLOOD SPECIMEN [facility] Address: [address] [place] [address] Performed By: #### 5 8410-2 #### [facility] CLIA [id number] [address] [place] [address] [place] Nucleated RBC (Bld) [#/Vol] 10*3/uL Normal <0.01 [facility] Comment on above: Order Comment: Speci men Type: BLOOD SPECIMEN [facility] Address: [address] [place] [address] Performed By: #### 5 8410-2 #### [facility] CLIA [id number] [address] [place] Nucleated RBC/100 WBC (Bld) [Ratio] 0.0 /100 WBC Normal [facility] Comment on above: Order Comment: Speci men Type: BLOOD SPECIMEN [facility] Address: [address] [place] [address] Performed By: #### 5 8410-2 #### [facility] CLIA [id number] [address] Platelet mean volume (Bld) [Entitic vol] 10.6 fL Normal 9.0-12.7 [facility] Comment on above: Order Comment: Speci men Type: BLOOD SPECIMEN [facility] Address: [address] [place] [address] Performed By: #### 5 8410-2 #### [facility] CLIA [id number] [address] [place] Platelets (Bld) [#/Vol] 239 10*3/uL Normal 150-400 [facility] Comment on above: Order Comment: Speci men Type: BLOOD SPECIMEN [facility] Address: [address] [place] [address] Performed By: #### 5 8410-2 #### [facility] CLIA [id number] [address] [place] RBC (Bld) [#/Vol] 4.08 10*6/uL Normal 3.90-5.20 [facility] Comment on above: Order Comment: Speci men Type: BLOOD SPECIMEN [facility] Address: [address] [place] [address] Performed By: #### 5 8410-2 #### [facility] CLIA [id number] [address] [place] [address] [place] WBC (Bld) [#/Vol] 9.08 10*3/uL Normal 3.70-11.00 [facility] Comment on above: Order Comment: Speci men Type: BLOOD SPECIMEN [facility] Address: [address] [place] [address] Performed By: #### 5 8410-2 #### [facility] CLIA [id number] [address] OF [facility] Comprehensive metabolic 2000 panelon 07-06-2024 Albumin [Mass/Vol] 4.1 g/dL Normal 3.9-4.9 [facility] Comment on above: Order Comment: Speci men Type: BLOOD SPECIMENOrdering Facility: [facility] Address: [address] [place] [address] Performed By: #### 2 4323-8 ####[facility]ATORYCLIA [id number] [address] [place] ALP [Catalytic activity/Vol] 134 U/L High 34-123 [facility] Comment on above: Order Comment: Speci men Type: BLOOD SPECIMENOrdering Facility: [facility] Address: [address] [place] [address] Performed By: #### 2 4323-8 ####[facility]ATORYCLIA [id number] [address] ALT [Catalytic activity/Vol] 32 U/L Normal 7-38 [facility] Comment on above: Order Comment: Speci men Type: BLOOD SPECIMENOrdering Facility: [facility] Address: [address] [place] [address] Performed By: #### 2 4323-8 ####[facility]ATORYCLIA [id number] [address] [place] Anion gap [Moles/Vol] 11 mmol/L Normal 8-15 [facility] Comment on above: Order Comment: Speci men Type: BLOOD SPECIMENOrdering Facility: [facility] Address: [address] [place] [address] Performed By: #### 2 4323-8 ####[facility]ATORYCLIA [id number] [address] [place] AST [Catalytic activity/Vol] 24 U/L Normal 13-35 [facility] Comment on above: Order Comment: Speci men Type: BLOOD SPECIMENOrdering Facility: [facility] Address: [address] [place] [address] Performed By: #### 2 4323-8 ####[facility]ORATORYCLIA [id number] [place] [address] [place] Bilirubin [Mass/Vol] 1.3 mg/dL Normal 0.2-1.3 [facility] Comment on above: Order Comment: Speci men Type: BLOOD SPECIMENOrdering Facility: [facility] Address: [address] [place] [address] Performed By: #### 2 4323-8 ####[facility]ORATORYCLIA [id number] [place] [address] [place] Calcium [Mass/Vol] 9.2 mg/dL Normal 8.5-10.2 [facility] Comment on above: Order Comment: Speci men Type: BLOOD SPECIMENOrdering Facility: [facility] Address: [address] [place] [address] Performed By: #### 2 4323-8 ####[facility]ORATORYCLIA [id number] [place] [address] [place] Chloride [Moles/Vol] 102 mmol/L Normal 98-107 [facility] Comment on above: Order Comment: Speci men Type: BLOOD SPECIMENOrdering Facility: [facility] Address: [address] [place] [address] Performed By: #### 2 4323-8 ####[facility]ATORYCLIA [id number] [place] [address] [place] CO2 [Moles/Vol] 25 mmol/L Normal 22-30 [facility] Comment on above: Order Comment: Speci men Type: BLOOD SPECIMENOrdering Facility: [facility] Address: [address] [place] [address] Performed By: #### 2 4323-8 ####[facility]ATORYCLIA [id number] [place] [address] [place] Creatinine [Mass/Vol] 0.85 mg/dL Normal 0.58-0.96 [facility] Comment on above: Order Comment: David ponce Type: BLOOD SPECIMENOrdering Facility: [facility] Address: [address] [place] [address] Performed By: #### 2 4323-8 ####[facility]ATORYCLIA [id number] [place] [id number] [place] [facility] Creatinine and Glomerular filtration rate.predicted panel (S/P/Bld) 87 mL/min/1.73m??? Normal >=60 [facility] Comment on above: Order Comment: David sol Type: BLOOD SPECIMENOrdering Facility: [facility] Address: [address] [place] [address] Result Comment: Vidal mated Glomerular Filtration Rate [...] actual GFR. Performed By: #### 2 4323-8 ####[facility]ORYCLIA [id number] [place] [id number] [place] Glucose [Mass/Vol] 91 mg/dL Normal 74-99 [facility] Comment on above: Order Comment: Kianatian ponce Type: BLOOD SPECIMENOrdering Facility: [facility] Address: [address] [place] [address] Result Comment: The [place] Diabetes Association (ADA) provides guidance for cutoff [...] Standards of Medical Care in Diabetes 2016, [place] Diabetes Association. Diabetes Care. 2016.39(Suppl 1). Performed By: #### 2 4323-8 ####[facility]CL[facility] [id number] [address] [place] Potassium [Moles/Vol] 3.9 mmol/L Normal 3.7-5.1 [facility] Comment on above: Order Comment: Speci men Type: BLOOD SPECIMENOrdering Facility: [facility] Address: [address] [place] [address] Performed By: #### 2 4323-8 ####[facility]ORYCLIA [id number] [address] [place] Protein [Mass/Vol] 6.2 g/dL Low 6.3-8.0 [facility] Comment on above: Order Comment: Speci men Type: BLOOD SPECIMENOrdering Facility: [facility] Address: [address] [place] [address] Performed By: #### 2 4323-8 ####[facility]ORYCLIA [id number] [address] Sodium [Moles/Vol] 138 mmol/L Normal 136-144 [facility] Comment on above: Order Comment: Speci men Type: BLOOD SPECIMENOrdering Facility: [facility] Address: [address] [place] [address] Performed By: #### 2 4323-8 ####[facility]CLIA [id number] [address] Urea nitrogen [Mass/Vol] 9 mg/dL Normal 7-21 [facility] Comment on above: Order Comment: Speci men Type: BLOOD SPECIMENOrdering Facility: [facility] Address: [address] [place] [address] Performed By: #### 2 4323-8 ####[facility]CLIA [id number] [address] Pathology biopsy report David (Tiss)on 07-06-2024 ADDENDUM 1: Normal [facility] Comment on above: Order Comment: Speci men Type: BLOOD SPECIMEN [facility] Address: [address] [place] [address] Result Comment: B. I mmunohistochemical stain for H. pylori is negative. Addendum electronically signed by Jaleesa Valdivia MD on 07/16/2024 at 1121 EDT Performed By: #### 5 8410-2 #### [facility] CLIA [id number] [address] [place] AP DISCLAIMER Normal [facility] Comment on above: Order Comment: David ponce Type: BLOOD SPECIMEN [facility] Address: [address] [place] [address] Result Comment: Ubaldo tang Developed Test (LDT) Disclaimer: Performance characteristics of immunohistochemical, immunofluorescent, and chromogenic in-situ hybridization tests have been determined by the performing laboratory within [facility]'s [facility] Pathology and Laboratory Medicine Department ([facility], [facility], [facility], [facility], [facility], [facility], or [facility]) in a manner consistent with CLIA requirements. One or more of these tests may not have been cleared or approved by the FDA. [facility] is regulated under CLIA as qualified to perform high-complexity testing. These tests are used for clinical purposes. These should not be regarded as investigational or for research. Positive and negative controls stain appropriately. Performed By: #### 5 8410-2 #### [facility] CLIA [id number] [address] [place] CASE REPORT Normal [facility] Comment on above: Order Comment: David ponce Type: BLOOD SPECIMEN [facility] Address: [address] [place] [address] Result Comment: Surg [facility] Pathology Report Case: [id number] Authorizing Provider: Kaylyn Ellis MD Collected: 07/06/2024 09:43 AM Ordering Location: [facility] Endoscopy Received: 07/06/2024 11:27 AM Pathologist: Jaleesa Valdivia MD Specimens: A) - Small Bowel, Duodenum, Biopsy, R/O Sprue and Giardia B) - Stomach, Biopsy, R/O H Pylori C) - Esophagogastric Junction, Biopsy, R/O Barretts Performed By: #### 5 8410-2 #### [facility] CLIA [id number] [address] DIAGNOSIS COMMENT Part C was reviewed with Dr. Nunn, who concurs. [facility] Comment on above: Order Comment: Speci men Type: BLOOD SPECIMEN [facility] Address: [address] [place] [address] Performed By: #### 5 8410-2 #### [facility] CLIA [id number] [address] FINAL DIAGNOSIS [facility] Comment on above: Order Comment: Speci men Type: BLOOD SPECIMEN [facility] Address: [address] [place] [address] Result Comment: A. D uodenum, biopsy: - [...] EDT Performed By: #### 5 8410-2 #### [facility] CLIA [id number] [address] FINAL PERFORMING LAB [facility] Comment on above: Order Comment: Speci men Type: BLOOD SPECIMEN [facility] Address: [address] [place] [address] Result Comment: Diag nostic interpretation performed at: [facility], [address] [place] [address], [place] [id number] CLIA# [id number] Can Runner: Logan Villnaueva MD Performed By: #### 5 8410-2 #### [facility] CLIA [id number] [address] GROSS DESCRIPTION [facility] Comment on above: Order Comment: Speci men Type: BLOOD SPECIMEN [facility] Address: [address] [place] [address] Result Comment: A. S mall Bowel, Duodenum, [...] in one cassette. Gross examination performed at [facility], [address] [facility] [place] [address] [facility] July 06, 2024 4:20 PM Performed By: #### 5 8410-2 #### [facility] CLIA [id number] [address] [place] [address] [facility] Upper GI endoscopy 025 Upper GI endoscopy [facility] Gastrointestinal Endoscopy Patient Name: Michelle Mitchell Procedure Date: 07/06/2024 9:28 AM Date of : 1980 Admit Type: Inpatient Age: 43 Room: [facility] Gender: Female Note Status: Finalized Attending MD: Kaylyn Ellis MD, [id number] Procedure: Upper GI endoscopy Indications: Abdominal pain, [...] anesthesia care under the supervision of a [employer]IST was determined to be medically necessary for [...] clinical course. Procedure Code(s): --- Professional --- 49723, Esophagogastroduodenosco py, flexible, transoral; with biopsy, single or multiple CPT copyright 2020 [employer] [place] [employer]. All rights reserved. The codes documented in this report are preliminary and upon straight cutter machine review may be revised to meet current compliance requirements. Attending Participation: I personally performed the entire procedure. Scope In: 9:42:49 AM Scope Out: 9:49:13 AM MD Kaylyn George MD 07/06/2024 9:59:31 AM This report has been signed electronically by Kaylyn Ellis MD Number of Addenda: 0 Note Initiated On: 07/06/2024 9:28 AM Estimated Blood Loss: Estimated blood loss: none. Normal [facility] A1AT SerPl-mCncon 07-05-2024 Alpha 1 antitrypsin [Mass/Vol] 106 mg/dL Normal 90-200 [facility] Comment on above: Order Comment: David ponce Type: BLOOD SPECIMEN Ordering Facility: [facility] Address: [address] [place] [address] Performed By: #### 5 8410-2 #### [facility] CLIA [id number] [address] AFP SerPl-mCncon 07-05-2024 AFP [Mass/Vol] 5.23 ng/mL Normal <9.00 [facility] Comment on above: Order Comment: [facility] Type: BLOOD SPECIMEN Ordering Facility: [facility] Address: [address] [place] [address] Result Comment: The Alpha-Fetoprotein test was performed using the GonnaBe DxI immunoenzymatic assay. Results obtained with different assay methods or kits cannot be used interchangeably. Performed By: #### 5 8410-2 #### [facility] CLIA [id number] [address] SANDRA BY IFA SCREENon 07-06-19 25 Nuclear Ab Ql (S) Negative Normal Negative [facility] Comment on above: Order Comment: [facility] Type: BLOOD SPECIMEN Ordering Facility: [facility] Address: [address] [place] [address] Result Comment: Anti -nuclear antibody test is used as an aid in diagnosis of systemic autoimmune diseases. Where positive and clinically warranted, follow-up using disease-specific testing is recommended. Low positive titers are not uncommon with advanced age, certain chronic infections, and malignancies among others. Test methodology: Indirect fluorescence immunoassay (IFA) using HEp-2 cells. Performed By: #### 5 8410-2 #### [facility] CLIA [id number] [address] CBC W Auto Differential pane l (Bld)on 07-05-2024 Basophils (Bld) [#/Vol] 0.08 10*3/uL Normal <0.11 [facility] Comment on above: Order Comment: [facility] Type: BLOOD SPECIMEN Ordering Facility: [facility] Address: [address] [place] [address] Performed By: #### 5 8410-2 #### [facility] CLIA [id number] [address] [place] [address] [place] Basophils/100 WBC (Bld) 0.7 % Normal [facility] Comment on above: Order Comment: Speci men Type: BLOOD SPECIMEN Ordering Facility: [facility] Address: [address] [place] [address] Performed By: #### 5 8410-2 #### [facility] CLIA [id number] [address] [place] [address] [place] [facility] [place] Differential cell count method Nom (Bld) Auto Normal [facility] Comment on above: Order Comment: Speci men Type: BLOOD SPECIMEN Ordering Facility: [facility] Address: [address] [place] [address] Performed By: #### 5 8410-2 #### [facility] CLIA [id number] [address] [place] [address] [place] Eosinophils (Bld) [#/Vol] 0.12 10*3/uL Normal <0.46 [facility] Comment on above: Order Comment: Speci men Type: BLOOD SPECIMEN Ordering Facility: [facility] Address: [address] [place] [address] Performed By: #### 5 8410-2 #### [facility] CLIA [id number] [address] Eosinophils/100 WBC (Bld) 1.0 % [facility] Comment on above: Order Comment: Speci men Type: BLOOD SPECIMEN Ordering Facility: [facility] Address: [address] [place] [address] Performed By: #### 5 8410-2 #### [facility] CLIA [id number] [address] [place] Erythrocyte distribution width (RBC) [Ratio] 15.0 % Normal 11.5-15.0 [facility] Comment on above: Order Comment: Speci men Type: BLOOD SPECIMEN Ordering Facility: [facility] Address: [address] [place] [address] Performed By: #### 5 8410-2 #### [facility] CLIA [id number] [address] [place] [address] [place] Hematocrit (Bld) [Volume fraction] 45.4 % Normal 36.0-46.0 [facility] Comment on above: Order Comment: Speci men Type: BLOOD SPECIMEN Ordering Facility: [facility] Address: [address] [place] [address] Performed By: #### 5 8410-2 #### [facility] CLIA [id number] [address] [place] [address] [place] Hemoglobin (Bld) [Mass/Vol] 14.2 g/dL Normal 11.5-15.5 [facility] Comment on above: Order Comment: Speci men Type: BLOOD SPECIMEN Ordering Facility: [facility] Address: [address] [place] [address] Performed By: #### 5 8410-2 #### [facility] CLIA [id number] [address] [place] Immature granulocytes (Bld) [#/Vol] 0.04 10*3/uL Normal <0.10 [facility] Comment on above: Order Comment: Speci men Type: BLOOD SPECIMEN Ordering Facility: [facility] Address: [address] [place] [address] Performed By: #### 5 8410-2 #### [facility] CLIA [id number] [address] [place] Immature granulocytes/100 WBC (Bld) 0.3 % Normal [facility] Comment on above: Order Comment: Speci men Type: BLOOD SPECIMEN Ordering Facility: [facility] Address: [address] [place] [address] Performed By: #### 5 8410-2 #### [facility] CLIA [id number] [address] [place] [address] [place] Lymphocytes (Bld) [#/Vol] 1.79 10*3/uL Normal 1.00-4.00 [facility] Comment on above: Order Comment: Speci men Type: BLOOD SPECIMEN Ordering Facility: [facility] Address: [address] [place] [address] Performed By: #### 5 8410-2 #### [facility] CLIA [id number] [address] Lymphocytes/100 WBC (Bld) 14.7 % Normal [facility] Comment on above: Order Comment: Speci men Type: BLOOD SPECIMEN Ordering Facility: [facility] Address: [address] [place] [address] Performed By: #### 5 8410-2 #### [facility] CLIA [id number] [address] [place] MCH (RBC) [Entitic mass] 31.7 pg Normal 26.0-34.0 [facility] Comment on above: Order Comment: Speci men Type: BLOOD SPECIMEN Ordering Facility: [facility] Address: [address] [place] [address] Performed By: #### 5 8410-2 #### [facility] CLIA [id number] [address] [place] MCHC (RBC) [Mass/Vol] 31.3 g/dL Normal 30.5-36.0 [facility] Comment on above: Order Comment: Speci men Type: BLOOD SPECIMEN Ordering Facility: [facility] Address: [address] [place] [address] Performed By: #### 5 8410-2 #### [facility] CLIA [id number] [address] STATES [facility] MCV (RBC) [Entitic vol] 101.3 fL High 80.0-100.0 M [facility] Comment on above: Order Comment: Speci men Type: BLOOD SPECIMEN Ordering Facility: [facility] Address: [address] [place] [address] Performed By: #### 5 8410-2 #### [facility] CLIA [id number] [address] [place] Monocytes (Bld) [#/Vol] 0.57 10*3/uL Normal <0.87 [facility] Comment on above: Order Comment: Speci men Type: BLOOD SPECIMEN Ordering Facility: [facility] Address: [address] [place] [address] Performed By: #### 5 8410-2 #### [facility] CLIA [id number] [address] [place] Monocytes/100 WBC (Bld) 4.7 % Normal [facility] Comment on above: Order Comment: Speci men Type: BLOOD SPECIMEN Ordering Facility: [facility] Address: [address] [place] [address] Performed By: #### 5 8410-2 #### [facility] CLIA [id number] [address] [place] [address] [place] Neutrophils (Bld) [#/Vol] 9.58 10*3/uL High 1.45-7.50 [facility] Comment on above: Order Comment: Speci men Type: BLOOD SPECIMEN Ordering Facility: [facility] Address: [address] [place] [address] Performed By: #### 5 8410-2 #### [facility] CLIA [id number] [address] Neutrophils/100 WBC (Bld) 78.6 % Normal [facility] Comment on above: Order Comment: Speci men Type: BLOOD SPECIMEN Ordering Facility: [facility] Address: [address] [place] [address] Performed By: #### 5 8410-2 #### [facility] CLIA [id number] [address] [place] [address] [place] Nucleated RBC (Bld) [#/Vol] 10*3/uL Normal <0.01 [facility] Comment on above: Order Comment: Speci men Type: BLOOD SPECIMEN Ordering Facility: [facility] Address: [address] [place] [address] Performed By: #### 5 8410-2 #### [facility] CLIA [id number] [address] [place] [address] [place] Nucleated RBC/100 WBC (Bld) [Ratio] 0.0 /100 WBC Normal [facility] Comment on above: Order Comment: Speci men Type: BLOOD SPECIMEN Ordering Facility: [facility] Address: [address] [place] [address] Performed By: #### 5 8410-2 #### [facility] CLIA [id number] [address] Platelet mean volume (Bld) [Entitic vol] 10.5 fL Normal 9.0-12.7 [facility] Comment on above: Order Comment: David ponce Type: BLOOD SPECIMEN Ordering Facility: [facility] Address: [address] [place] [address] Performed By: #### 5 8410-2 #### [facility] CLIA [id number] [address] [place] Platelets (Bld) [#/Vol] 278 10*3/uL Normal 150-400 [facility] Comment on above: Order Comment: David ponce Type: BLOOD SPECIMEN Ordering Facility: [facility] Address: [address] [place] [address] Performed By: #### 5 8410-2 #### [facility] CLIA [id number] [address] OF [facility] RBC (Bld) [#/Vol] 4.48 10*6/uL Normal 3.90-5.20 [facility] Comment on above: Order Comment: Kianai men Type: BLOOD SPECIMEN Ordering Facility: [facility] Address: [address] [place] [address] Performed By: #### 5 8410-2 #### [facility] CLIA [id number] [address] WBC (Bld) [#/Vol] 12.18 10*3/uL High 3.70-11.00 [facility] Comment on above: Order Comment: David men Type: BLOOD SPECIMEN Ordering Facility: [facility] Address: [address] [place] [address] Performed By: #### 5 8410-2 #### [facility] CLIA [id number] [address] CELIAC SCREENon 07-05-2024 GLIAD DEAMIDATED IGA QUAL Negative Normal Negative, Test not Indicated [facility] Comment on above: Order Comment: David ponce Type: BLOOD SPECIMENOrdering Facility: [facility] Address: [address] [place] [address] Result Comment: This is used as an aid in diagnosis of celiac disease. Clinical correlation is required. The following results were obtained with an Inova QUANTA Lite Gliadin IgA ION Gliadin. Gliadin IgA values obtained with different manufacturers' assay methods may not be used interchangeably. The magnitude of the reported IgA levels cannot be correlated to an endpoint titer. Performed By: #### L [id number] ####[facility] LABCLIA [id number] [address] [place] Gliadin peptide IgA Qn (S) 1 Units Normal <20 [facility] Comment on above: Order Comment: Speci men Type: BLOOD SPECIMENOrdering Facility: [facility] Address: [address] [place] [address] Performed By: #### L [id number] ####[facility] LABCLIA [id number] [place] [id number] [place] INTERPRETATION No serological evide nce of celiac disease, however, if celiac disease is clinically suspected and patient is not on gluten-free diet, histological diagnosis may be considered. HLA testing may help with risk assessment. Normal [facility] Comment on above: Order Comment: [facility] Type: BLOOD SPECIMENOrdering Facility: [facility] Address: [address] [place] [address] Performed By: #### L [id number] ####[facility] LABIA [id number] [address] [place] TRANSGLUTAMINASE IGA ABS INTERPRETATION Negative Normal Negative [facility] Comment on above: Order Comment: Speci [facility] Type: BLOOD SPECIMENOrdering Facility: [facility] Address: [address] [place] [address] Result Comment: The following results were obtained with Inova QUANTA Lite R h-tTG IgA ION.???R h-tTG IgA values obtained with different manufacturers' assay methods may not be used interchangeably. The magnitude of the reported IgA levels cannot be corelated to an endpoint???concentration. This is used as an aid in diagnosis of celiac disease. Clinical correlation is required. Performed By: #### L [id number] ####[facility] LABCLIA [id number] [address] [place] tTG IgA Qn (S) <2 Normal <4 [facility] Comment on above: Order Comment: Speci men Type: BLOOD SPECIMENOrdering Facility: [facility] Address: [address] [place] [address] Performed By: #### L [id number] ####[facility] LABCLIA [id number] [address] CMV IgM Qnon 07-05-2024 CMV IGM, QUAL Negative Normal Negative [facility] Comment on above: Order Comment: Speci men Type: BLOOD SPECIMENOrdering Facility: [facility] Address: [address] [place] [address] Result Comment: No s erological evidence of recent exposure to Cytomegalovirus. Performed By: #### 7 853-5, 7886-5 ####[facility] LABCLIA [id number] [address] CONSULTon 07-05-2024 CONSULT HNO ID: [id number] Author: SERGIO WHITE MD Service: Gastroenterology Author [...] and facial swelling. She was evaluated in [place] ER twice and discharged to home. She was advised to present to [facility] by Dr. Wilkinson for admission. Her [...] suicidal ideations Ativan [Lorazepam] Vomiting Azithromycin Intolerance Reliance Anaphylaxis Reliance Anaphylaxis pickles Fish Anaphylaxis Levofloxacin In D5w [...] TRANSVENOUS PACEMAKER INSERTION Apr. 2006 ICD implant, [facility] ANESTHESIA TUBAL LIGATION/TRANSECTION APPENDECTOMY 05/05/2014 , lap [...] bedtime., D (more content not included)... Normal [facility] Ceruloplasmin SerPl-mCncon 0 07-05-2024 Ceruloplasmin [Mass/Vol] 31 mg/dL Normal 16-45 [facility] Comment on above: Order Comment: Speci men Type: BLOOD SPECIMEN Ordering Facility: [facility] Address: [address] [place] [address] Performed By: #### 5 8410-2 #### [facility] CLIA [id number] [address] [place] [address] [facility] Comprehensive metabolic 2000 panelon 07-05-2024 Albumin [Mass/Vol] 4.0 g/dL Normal 3.9-4.9 [facility] Comment on above: Order Comment: Speci men Type: BLOOD SPECIMENOrdering Facility: [facility] Address: [address] [place] [address] Performed By: #### 2 4323-8, 13355-4, 48435-0 ####[facility] [id number] [address] ALP [Catalytic activity/Vol] 132 U/L High 34-123 [facility] Comment on above: Order Comment: Speci men Type: BLOOD SPECIMENOrdering Facility: [facility] Address: [address] [place] [address] Performed By: #### 2 4323-8, 50063-4, 39449-3 ####[facility] [id number] [address] ALT [Catalytic activity/Vol] 39 U/L High 7-38 [facility] Comment on above: Order Comment: Speci men Type: BLOOD SPECIMENOrdering Facility: [facility] Address: [address] [place] [address] Performed By: #### 2 4323-8, 25078-3, 83417-6 ####[facility] [id number] [address] Anion gap [Moles/Vol] 10 mmol/L Normal 8-15 [facility] Comment on above: Order Comment: Speci men Type: BLOOD SPECIMENOrdering Facility: [facility] Address: [address] [place] [address] Performed By: #### 2 4323-8, 46435-8, 45344-9 ####[facility] [id number] [address] AST [Catalytic activity/Vol] 30 U/L Normal 13-35 [facility] Comment on above: Order Comment: Speci men Type: BLOOD SPECIMENOrdering Facility: [facility] Address: [address] [facility] [place] [place] [address] Performed By: #### 2 4323-8, 89261-3, 43226-2 ####[facility] [id number] [place] [address] [place] Bilirubin [Mass/Vol] 1.0 mg/dL Normal 0.2-1.3 [facility] Comment on above: Order Comment: Speci men Type: BLOOD SPECIMENOrdering Facility: [facility] Address: [address] [place] [address] Performed By: #### 2 4323-8, 22939-8, 90204-0 ####[facility] [id number] [place] [address] [place] Calcium [Mass/Vol] 9.1 mg/dL Normal 8.5-10.2 [facility] Comment on above: Order Comment: Speci men Type: BLOOD SPECIMENOrdering Facility: [facility] Address: [address] [place] [address] Performed By: #### 2 4323-8, 37752-5, 38913-2 ####[facility] [id number] [place] [address] [place] Chloride [Moles/Vol] 104 mmol/L Normal 98-107 [facility] Comment on above: Order Comment: Speci men Type: BLOOD SPECIMENOrdering Facility: [facility] Address: [address] [place] [address] Performed By: #### 2 4323-8, 18352-4, 45466-7 ####[facility] [id number] [place] [address] [place] CO2 [Moles/Vol] 27 mmol/L Normal 22-30 [facility] Comment on above: Order Comment: Speci men Type: BLOOD SPECIMENOrdering Facility: [facility] Address: [address] [place] [address] Performed By: #### 2 4323-8, 30295-7, 69976-5 ####[facility] [id number] [place] [address] [place] Creatinine [Mass/Vol] 0.96 mg/dL Normal 0.58-0.96 [facility] Comment on above: Order Comment: David ponce Type: BLOOD SPECIMENOrdering Facility: [facility] Address: [address] [facility] [place] [address] Performed By: #### 2 4323-8, 50413-0, 44518-7 ####[facility]IA [id number] [place] [address] [place] Creatinine and Glomerular filtration rate.predicted panel (S/P/Bld) 75 mL/min/1.73m??? Normal >=60 [facility] Comment on above: Order Comment: David ponce Type: BLOOD SPECIMENOrdering Facility: [facility] Address: [address] [place] [address] Result Comment: Vidal mated Glomerular Filtration Rate [...] actual GFR. Performed By: #### 2 4323-8, 95174-1, 01708-8 ####[facility] [id number] [place] [id number] [place] Glucose [Mass/Vol] 89 mg/dL Normal 74-99 [facility] Comment on above: Order Comment: David ponce Type: BLOOD SPECIMENOrdering Facility: [facility] Address: [address] [place] [address] Result Comment: The [place] [employer] (ADA) provides guidance for cutoff [...] Standards of Medical Care in Diabetes 2016, [place] [employer] Association. Diabetes Care. 2016.39(Suppl 1). Performed By: #### 2 4323-8, 19212-7, 94798-3 ####[facility]IA [id number] [place] [address] [place] Potassium [Moles/Vol] 4.1 mmol/L Normal 3.7-5.1 [facility] Comment on above: Order Comment: Speci men Type: BLOOD SPECIMENOrdering Facility: [facility] Address: [address] [place] [address] Performed By: #### 2 4323-8, 45553-4, 49331-7 ####[facility]IA [id number] [place] [address] [place] Protein [Mass/Vol] 6.9 g/dL Normal 6.3-8.0 [facility] Comment on above: Order Comment: Speci men Type: BLOOD SPECIMENOrdering Facility: [facility] Address: [address] [place] [address] Performed By: #### 2 4323-8, 63381-6, 61631-2 ####[facility]IA [id number] [address] [place] Sodium [Moles/Vol] 141 mmol/L Normal 136-144 [facility] Comment on above: Order Comment: Speci men Type: BLOOD SPECIMENOrdering Facility: [facility] Address: [address] [place] [address] Performed By: #### 2 4323-8, 22490-7, 82742-1 ####[facility]IA [id number] [place] [address] [place] Urea nitrogen [Mass/Vol] 12 mg/dL Normal 7-21 [facility] Comment on above: Order Comment: Speci men Type: BLOOD SPECIMENOrdering Facility: [facility] Address: [address] [place] [address] Performed By: #### 2 4323-8, 57028-9, 16104-4 ####[facility]IA [id number] [place] [address] [place] EBV capsid IgM Qn (S)on 06-13 EBV VCA IGM, QUAL Negative Normal Negative [facility] Comment on above: Order Comment: Speci men Type: BLOOD SPECIMENOrdering Facility: [facility] Address: [address] [place] [address] Result Comment: No s erological evidence of recent EBV infection. Performed By: #### 7 853-5, 7886-5 ####[facility] LABCLIA [id number] [address] STATES OF [facility] HISTORY PHYSICALon HISTORY PHYSICAL HNO ID: [id number] Author: DEX WILKINSON MD Service: Family Practice [...] PERMANENT TRANSVENOUS PACEMAKER INSERTION 2006 ICD implant, [facility] ANESTHESIA TUBAL LIGATION/TRANSECTION APPENDECTOMY 05/05/2014 , lap [...] suicidal ideations Ativan [Lorazepam] Vomiting Azithromycin Intolerance Reliance Anaphylaxis Reliance Anaphylaxis pickles Fish Anaphylaxis Levofloxacin In D5w Swelling, Itching IV si (more content not included)... Normal [facility] HSV PCR, MISCELLANEOUS SPECTian PONCE TYPESon 07-05-2024 HERPES SIMPLEX VIRUS SOURCE Plasma Normal [facility] Comment on above: Order Comment: Kianai men Type: BLOOD SPECIMEN [facility] Facility[facility] Address: [address] [place] [address] Performed By: #### 5 8410-2 #### [facility] CLIA [id number] [address] HSV 1 SUBTYPE BY PCR Not detected Normal [place] Comment on above: Order Comment: [facility] Type: BLOOD SPECIMEN [facility] Facility: [facility] Address: [address] [place] [address] Performed By: #### 5 8410-2 #### [facility] CLIA [id number] [address] HSV 2 SUBTYPE BY PCR Not detected Normal [place] Comment on above: Order Comment: [facility] Type: BLOOD SPECIMEN [facility] Facility: [facility] Address: [address] [place] [address] Result Comment: INTE RPRETIVE INFORMATION: HSV-1 and HSV-2 Subtype by PCR A negative result does not rule out the presence of PCR inhibitors in the patient specimen or test-specific nucleic acid in concentrations below the level of detection by this test. This test was developed and its performance characteristics determined by [facility]. It has not been cleared or approved by the [place] Food and Drug Administration. This test was performed in a CLIA certified laboratory and is intended for clinical purposes. Performed By: [facility] [address] [place] [address] Can Runner: José Burns MD, PhD CLIA Number: [id number] Performed By: #### 5 8410-2 #### [facility] CLIA [id number] [address] IgA SerPl-mCncon 07-05-2024 IgA [Mass/Vol] 97 mg/dL Normal 70-400 [facility] Comment on above: Order Comment: Speci men Type: BLOOD SPECIMEN [facility] Address: [address] [place] [address] Performed By: #### 5 8410-2 #### [facility] CLIA [id number] [address] [place] Iron and Iron binding capaci ty panelon 07-05-2024 Iron [Mass/Vol] 77 ug/dL Normal 41-186 [facility] Comment on above: Order Comment: Speci men Type: BLOOD SPECIMENOrdering Facility: [facility] Address: [address] [place] [address] Performed By: #### 2 4323-8, 64039-5, 42696-6 ####[facility] [id number] [place] [address] [place] [facility] Iron binding capacity [Mass/Vol] 411 ug/dL High 232-386 [facility] Comment on above: Order Comment: Speci men Type: BLOOD SPECIMENOrdering Facility: [facility] Address: [address] [place] [address] Performed By: #### 2 4323-8, 51483-8, 94902-7 ####[facility] [id number] [address] OF [place] Iron/TIBC [Molar ratio] 18.7 % Normal 15.0-57.0 M [facility] Comment on above: Order Comment: Speci men Type: BLOOD SPECIMENOrdering Facility: [facility] Address: [address] [place] [address] Performed By: #### 2 4323-8, 47505-9, 68755-7 ####[facility]IA [id number] [place] [address] [place] Lipid 1996 panelon 5 Cholesterol [Mass/Vol] 172 mg/dL Normal <200 [place] Comment on above: Order Comment: Speci men Type: BLOOD SPECIMENOrdering Facility: [facility] Address: [address] [place] [address] Result Comment: <200 mg/dL, Desirable 200-239 mg/dL, Borderline high >239 mg/dL, High Performed By: #### 2 4323-8, 95172-1, 38199-5 ####[facility] [id number] [address] Cholesterol in HDL [Mass/Vol] 36 mg/dL Low >39 [facility] Comment on above: Order Comment: Speci men Type: BLOOD SPECIMENOrdering Facility: [facility] Address: [address] [place] [address] Result Comment: 40-5 9 mg/dL, Acceptable >59 mg/dL, High: Negative risk factor for coronary heart disease <40 mg/dL, Low: Positive risk factor for coronary heart disease Performed By: #### 2 4323-8, 99112-1, 68608-3 ####[facility] [id number] [address] Cholesterol in LDL [Mass/Vol] 108 mg/dL High <100 [facility] Comment on above: Order Comment: Speci men Type: BLOOD SPECIMENOrdering Facility: [facility] Address: [address] [place] [address] Result Comment: <100 mg/dL, Optimal 100-129 mg/dL, Near optimal/above optimal 130-159 mg/dL, Borderline high 160-189 mg/dL, High >189 mg/dL, Very high Secondary prevention optimal LDL Cholesterol levels are recommended to be <70 mg/dL LDL cholesterol is calculated using the Stoddard-NIH equation. Performed By: #### 2 4323-8, 11899-1, 30736-4 ####[facility]ORY[facility]IA [id number] [place] [address] [place] [facility] Cholesterol in LDL/Cholesterol in HDL [Mass ratio] 3.00 {ratio} High <2.54 [facility] Comment on above: Order Comment: Speci men Type: BLOOD SPECIMENOrdering Facility: [facility] Address: [address] [place] [address] Result Comment: Refe felipa: 1. National Cholesterol Education Program ATP III Guideline At-A-Glance Quick Desk Reference: National Heart, Lung, and Blood [place]. National Institutes of Health. 2001: NIH Publication No. 01-3305. 2. An International Atherosclerosis Society position paper: global recommendations for the management of dyslipidemia: executive summary, Atherosclerosis. 2014: 232(2):410-413. Performed By: #### 2 4323-8, 09178-5, 32600-9 ####[facility] [id number] [place] [id number] [place] Cholesterol in VLDL [Mass/Vol] 26 mg/dL Normal <30 [facility] Comment on above: Order Comment: David sol Type: BLOOD SPECIMENOrdering Facility: [facility] Address: [address] [place] [address] Performed By: #### 2 4323-8, 58516-4, 48870-7 ####[facility]IA [id number] [place] [id number] [facility] [place] Cholesterol non HDL [Mass/Vol] 136 mg/dL High <130 [facility] Comment on above: Order Comment: David sol Type: BLOOD SPECIMENOrdering Facility: [facility] Address: [address] [place] [address] Result Comment: <130 mg/dL, Optimal 130-159 mg/dL, Near optimal/above optimal 160-189 mg/dL, Borderline high 190-219 mg/dL, High >219 mg/dL, Very high Secondary prevention optimal non HDL Cholesterol levels are recommended to be <100 mg/dL Performed By: #### 2 4323-8, 94703-5, 03566-6 ####[facility]CLIA [id number] [address] Cholesterol.total/Choles terol in HDL [Mass ratio] 4.78 {ratio} Normal <5.10 [facility] Comment on above: Order Comment: Speci men Type: BLOOD SPECIMENOrdering Facility: [facility] Address: [address] [place] [address] Performed By: #### 2 4323-8, 11224-4, 06100-6 ####[facility] [id number] [address] FASTING TIME Normal [facility] Comment on above: Order Comment: Speci men Type: BLOOD SPECIMENOrdering Facility: [facility] Address: [address] [place] [address] Result Comment: Unkn own Performed By: #### 2 4323-8, 62594-3, 86082-9 ####[facility]IA [id number] [address] Triglyceride [Mass/Vol] 157 mg/dL High <150 M [facility] Comment on above: Order Comment: Speci men Type: BLOOD SPECIMENOrdering Facility: [facility] Address: [address] [place] [address] Result Comment: <150 mg/dL, Normal 150-199 mg/dL, Borderline high 200-499 mg/dL, High >499 mg/dL, Very high Performed By: #### 2 4323-8, 29381-9, 40445-5 ####[facility] [id number] [address] Mitochondria Ab IF Ql (S)on 07-05-2024 Mitochondria M2 Ab IA Qn (S) 4.4 Units Normal <=20.0 [facility] Comment on above: Order Comment: Speci men Type: BLOOD SPECIMENOrdering Facility: [facility] Address: [address] [place], [place] [address] Performed By: #### 1 4252-1, 21930-9 ####[facility] LABIA [id number] [address] [place] Mitochondria M2 Ab Ql (S) Negative Normal Negative [facility] Comment on above: Order Comment: Speci men Type: BLOOD SPECIMENOrdering Facility: [facility] Address: [address] [place] [address] Result Comment: Anti -mitochondrial antibody test is used as an aid in diagnosis of primary biliary cholangitis. Clinical correlation is required. Performed By: #### 1 4252-1, 92277-5 ####[facility] LABIA [id number] [address] [place] Smooth muscle Ab Ql (S)on ACTIN SMOOTH MUSCLE IGG QUALITATIVE Negative Normal Negative [facility] Comment on above: Order Comment: Speci men Type: BLOOD SPECIMENOrdering Facility: [facility] Address: [address] [place] [address] Performed By: #### 1 4252-1, 12399-6 ####[facility] LABIA [id number] [address] STATES [place] ACTIN SMOOTH MUSCLE IGG QUANTITATIVE 11 Units Normal <20 [facility] Comment on above: Order Comment: [facility] Type: BLOOD SPECIMENOrdering Facility: [facility] Address: [address] [place] [address] Performed By: #### 1 4252-1, 81830-1 ####[facility] LABIA [id number] [place] [id number] [facility] OF [place] ALLIED HEALTHon 07-04-2024 ALLIED HEALTH HNO ID: [id number] Author: SAMSON CRUM CT Service: Radiology Author [...] PATIENT PRESENTS WITH AN IMPLANTABLE OR ATTACHED BIOCHEMISTRY TEACHER: N/A RADIOLOGY DEPARTMENT: Ultrasound PERIPHERAL IV DATA: Not applicable SIGNED BY: MIRACLE Black July 04, 2024 10:25 PM [id number] Author: KEVEN CORNELIUS CT Service: Radiology Author [...] PATIENT PRESENTS WITH AN IMPLANTABLE OR ATTACHED BIOCHEMISTRY TEACHER: No ALLERGIES: Reviewed and unchanged CONTRAST ALLERGY: [...] PERIPHERAL IV DATA: Inpatient - refer to [facility] documentation RADIOLOGY DEPARTMENT: CT; Exam(s) Completed: Chest Abdomen Pelvis SIGNATURE: MIRACLE Brody PATIENT NAME: Michelle Mitchell DATE: July 04, 2024 TIME: 5:50 PM Normal [facility] BETA HCG, QUANTITATIVE FOR E Don 07-04-2024 HCG.beta subunit Qn 0.6 m[IU]/mL Normal <5.0 [facility] Comment on above: Order Comment: Speci men Type: BLOOD SPECIMENOrdering Facility: [facility] Address: [address] [place] [address] Result Comment: Nega tive Performed By: #### H CGED, 3040-3, 77073-0 ####[facility] [id number] [place] [address] [place] Bilirub SerPl-mCncon 025 Bilirubin [Mass/Vol] 0.6 mg/dL Normal 0.2-1.3 [facility] Comment on above: Order Comment: Speci men Type: BLOOD SPECIMENOrdering Facility: [facility] Address: [address] [place] [address] Performed By: #### 1 975-2, 11276-6, 56442-4, 5195-3 ####[facility] LABCLIA [id number] [place] [address] [place] C. trachomatis+N. gonorrhoea e DNA BIMAL+probe Ql (Unsp spec)on 07-04-2024 C. trachomatis rRNA BIMAL+probe Ql (Unsp spec) Not detected Normal Not detected [facility] Comment on above: Order Comment: Speci men Type: BLOOD SPECIMEN [facility] Address: [address] [place] [address] Performed By: #### 5 8410-2 #### [facility] CLIA [id number] [address] N. gonorrhoeae rRNA BIMAL+probe Ql (Unsp spec) Not detected Normal Not detected [facility] Comment on above: Order Comment: Speci men Type: BLOOD SPECIMEN [facility] Address: [address] [place] [address] Performed By: #### 5 8410-2 #### [facility] CLIA [id number] [address] CBC W Auto Differential pane l (Bld)on 07-04-2024 Basophils (Bld) [#/Vol] 0.05 10*3/uL Normal <0.11 [facility] Comment on above: Order Comment: Speci men Type: BLOOD SPECIMEN [facility] Address: [address] [place] [address] Performed By: #### 5 8410-2 #### [facility] CLIA [id number] [address] STATES [facility] Basophils/100 WBC (Bld) 0.3 % Normal [facility] Comment on above: Order Comment: Speci men Type: BLOOD SPECIMEN [facility] Address: [address] [place] [address] Performed By: #### 5 8410-2 #### [facility] CLIA [id number] [address] Differential cell count method Nom (Bld) Auto Normal [facility] Comment on above: Order Comment: Speci men Type: BLOOD SPECIMEN [facility] Address: [address] [place] [address] Performed By: #### 5 8410-2 #### [facility] CLIA [id number] [address] STATES OF [facility] Eosinophils (Bld) [#/Vol] 0.12 10*3/uL Normal <0.46 [facility] Comment on above: Order Comment: Speci men Type: BLOOD SPECIMEN [facility] Address: [address] [place] [address] Performed By: #### 5 8410-2 #### [facility] CLIA [id number] [address] [place] Eosinophils/100 WBC (Bld) 0.8 % Normal [facility] Comment on above: Order Comment: Speci men Type: BLOOD SPECIMEN [facility] Address: [address] [place] [address] Performed By: #### 5 8410-2 #### [facility] CLIA [id number] [address] [place] Erythrocyte distribution width (RBC) [Ratio] 14.7 % Normal 11.5-15.0 [facility] Comment on above: Order Comment: Speci men Type: BLOOD SPECIMEN [facility] Address: [address] [place] [address] Performed By: #### 5 8410-2 #### [facility] CLIA [id number] [address] [place] Hematocrit (Bld) [Volume fraction] 43.5 % Normal 36.0-46.0 [facility] Comment on above: Order Comment: Speci men Type: BLOOD SPECIMEN [facility] Address: [address] [place] [address] Performed By: #### 5 8410-2 #### [facility] CLIA [id number] [address] [place] Hemoglobin (Bld) [Mass/Vol] 14.0 g/dL Normal 11.5-15.5 [facility] Comment on above: Order Comment: Speci men Type: BLOOD SPECIMEN [facility] Address: [address] [place] [address] Performed By: #### 5 8410-2 #### [facility] CLIA [id number] [address] [place] Immature granulocytes (Bld) [#/Vol] 0.08 10*3/uL Normal <0.10 [facility] Comment on above: Order Comment: Speci men Type: BLOOD SPECIMEN [facility] Address: [address] [place] [address] Performed By: #### 5 8410-2 #### [facility] CLIA [id number] [address] Immature granulocytes/100 WBC (Bld) 0.5 % Normal [facility] Comment on above: Order Comment: Speci men Type: BLOOD SPECIMEN [facility] Address: [address] [place] [address] Performed By: #### 5 8410-2 #### [facility] CLIA [id number] [address] [place] Lymphocytes (Bld) [#/Vol] 1.38 10*3/uL Normal 1.00-4.00 [facility] Comment on above: Order Comment: Speci men Type: BLOOD SPECIMEN [facility] Address: [address] [place] [address] Performed By: #### 5 8410-2 #### [facility] CLIA [id number] [address] Lymphocytes/100 WBC (Bld) 9.4 % Normal [facility] Comment on above: Order Comment: Speci men Type: BLOOD SPECIMEN [facility] Address: [address] [place] [address] Performed By: #### 5 8410-2 #### [facility] CLIA [id number] [address] MCH (RBC) [Entitic mass] 31.7 pg Normal 26.0-34.0 [facility] Comment on above: Order Comment: Speci men Type: BLOOD SPECIMEN [facility] Address: [address] [place] [address] Performed By: #### 5 8410-2 #### [facility] CLIA [id number] [address] [place] MCHC (RBC) [Mass/Vol] 32.2 g/dL Normal 30.5-36.0 [facility] Comment on above: Order Comment: Speci men Type: BLOOD SPECIMEN [facility] Address: [address] [place] [address] Performed By: #### 5 8410-2 #### [facility] CLIA [id number] [address] [place] MCV (RBC) [Entitic vol] 98.6 fL Normal 80.0-100.0 [facility] Comment on above: Order Comment: Speci men Type: BLOOD SPECIMEN [facility] Address: [address] [place] [address] Performed By: #### 5 8410-2 #### [facility] CLIA [id number] [address] [place] Monocytes (Bld) [#/Vol] 0.61 10*3/uL Normal <0.87 [facility] Comment on above: Order Comment: Speci men Type: BLOOD SPECIMEN [facility] Address: [address] [place] [address] Performed By: #### 5 8410-2 #### [facility] CLIA [id number] [address] OF [place] Monocytes/100 WBC (Bld) 4.1 % Normal [facility] Comment on above: Order Comment: Speci men Type: BLOOD SPECIMEN [facility] Address: [address] [place] [address] Performed By: #### 5 8410-2 #### [facility] CLIA [id number] 1000 [place] [address] [place] Neutrophils (Bld) [#/Vol] 12.51 10*3/uL High 1.45-7.50 [facility] Comment on above: Order Comment: Speci men Type: BLOOD SPECIMEN [facility] Address: [address] [place] [address] Performed By: #### 5 8410-2 #### [facility] CLIA [id number] [address] OF [place] Neutrophils/100 WBC (Bld) 84.9 % Normal [facility] Comment on above: Order Comment: Speci men Type: BLOOD SPECIMEN [facility] Address: [address] [place] [address] Performed By: #### 5 8410-2 #### [facility] CLIA [id number] [address] OF [place] Nucleated RBC (Bld) [#/Vol] 10*3/uL Normal <0.01 [facility] Comment on above: Order Comment: Speci men Type: BLOOD SPECIMEN [facility] Address: [address] [place] [address] Performed By: #### 5 8410-2 #### [facility] CLIA [id number] [address] Nucleated RBC/100 WBC (Bld) [Ratio] 0.0 /100 WBC Normal [facility] Comment on above: Order Comment: Speci men Type: BLOOD SPECIMEN [facility] Address: [address] [place] [address] Performed By: #### 5 8410-2 #### [facility] CLIA [id number] [address] [place] [address] [place] Platelet mean volume (Bld) [Entitic vol] 10.4 fL Normal 9.0-12.7 [facility] Comment on above: Order Comment: Speci men Type: BLOOD SPECIMEN [facility] Address: [address] [place] [address] Performed By: #### 5 8410-2 #### [facility] CLIA [id number] [address] OF [place] Platelets (Bld) [#/Vol] 251 10*3/uL Normal 150-400 [facility] Comment on above: Order Comment: Speci men Type: BLOOD SPECIMEN [facility] Address: [address] [place] [address] Performed By: #### 5 8410-2 #### [facility] CLIA [id number] [address] [place] [address] [place] RBC (Bld) [#/Vol] 4.41 10*6/uL Normal 3.90-5.20 [facility] Comment on above: Order Comment: Speci men Type: BLOOD SPECIMEN [facility] Address: [address] [place] [id number] Performed By: #### 5 8410-2 #### [facility] CLIA [id number] [address] [place] [address] [place] WBC (Bld) [#/Vol] 14.75 10*3/uL High 3.70-11.00 [facility] Comment on above: Order Comment: Speci men Type: BLOOD SPECIMEN [facility] Address: [address] [place] [id number] Performed By: #### 5 8410-2 #### [facility] CLIA [id number] [address] [place] OF [place] CT ABD/PEL W IVCONon 025 CT ABD/PEL W IVCON * * *Final Report* * * DATE OF EXAM: Jul 04 2024 6:04PM [facility] [place] ABD/PEL W IVCON / [...] previous. Ascites, most prominent in the pelvis Tap And Die Maker Technician: KIM Transcribe Date/Time: Jul 04 2024 7:04P Dictated by : MICHELLE MUÑOZ MD This examination was interpreted and the report reviewed and electronically signed by: MICHELLE MUÑOZ MD on Jul 04 2024 7:13PM EST [id number] [facility] CTA CHEST (NON GATED) W IVCO N PEon 07-04-2024 CTA CHEST (NON GATED) W IVCON PE * * *Final Report* * * DATE OF EXAM: Jul 04 2024 6:04PM [facility] [place] - CTA CHEST (NON GATED) W [...] suggesting congestive heart failure or fluid overload. Tap And Die Maker Techn[facility] Trans[facility] Date/Time: Jul 04 2024 6:47P Dictated by : MICHELLE MUÑOZ MD This examination was interpreted and the report reviewed and electronically signed by: MICHELLE MUÑOZ MD on Jul 04 2024 7:02PM EST [id number] Normal [facility] Comprehensive metabolic 2000 panelon 07-04-2024 Albumin [Mass/Vol] 3.9 g/dL Normal 3.9-4.9 [facility] Comment on above: Order Comment: Speci men Type: BLOOD SPECIMENOrdering Facility: [facility] Address: [address] [place], [place] [address] Performed By: #### H CGED, 3040-3, 38752-6 ####[facility]ORYCLIA [id number] [place] [address] [place] ALP [Catalytic activity/Vol] 122 U/L Normal 34-123 [facility] Comment on above: Order Comment: Speci men Type: BLOOD SPECIMENOrdering Facility: [facility] Address: [address] [place] [address] Performed By: #### H CGED, 3040-3, 76179-6 ####[facility]ORYCLIA [id number] [place], [place] [id number] [place] [address] STATES [facility] ALT [Catalytic activity/Vol] 40 U/L High 7-38 [facility] Comment on above: Order Comment: Speci men Type: BLOOD SPECIMENOrdering Facility: [facility] Address: [address] [place] [address] Performed By: #### H CGED, 3040-3, 46366-1 ####[facility]CLIA [id number] [address] Anion gap [Moles/Vol] 11 mmol/L Normal 8-15 [facility] Comment on above: Order Comment: Speci men Type: BLOOD SPECIMENOrdering Facility: [facility] Address: [address] [place] [address] Performed By: #### H CGED, 3040-3, 14296-0 ####[facility]CLIA [id number] [address] AST [Catalytic activity/Vol] 40 U/L High 13-35 [facility] Comment on above: Order Comment: Speci men Type: BLOOD SPECIMENOrdering Facility: [facility] Address: [address] [place] [address] Performed By: #### H CGED, 3040-3, 84287-9 ####[facility]ORYCLIA [id number] [place] [address] [place] Bilirubin [Mass/Vol] 0.7 mg/dL Normal 0.2-1.3 [facility] Comment on above: Order Comment: Speci men Type: BLOOD SPECIMENOrdering Facility: [facility] Address: [address] [place] [address] Performed By: #### H CGED, 3040-3, 64466-0 ####[facility]ORYCLIA [id number] [place] [address] [place] Calcium [Mass/Vol] 8.8 mg/dL Normal 8.5-10.2 [facility] Comment on above: Order Comment: Speci men Type: BLOOD SPECIMENOrdering Facility: [facility] Address: [address] [place] [address] Performed By: #### H CGED, 3040-3, 89447-0 ####[facility]ORYCLIA [id number] [place] [address] [place] Chloride [Moles/Vol] 106 mmol/L Normal 98-107 [facility] Comment on above: Order Comment: Speci men Type: BLOOD SPECIMENOrdering Facility: [facility] Address: [address] [place] [address] Performed By: #### H CGED, 0-3, 63481-6 ####[facility]ORYCLIA [id number] [place] [address] [place] CO2 [Moles/Vol] 21 mmol/L Low 22-30 [facility] Comment on above: Order Comment: Speci men Type: BLOOD SPECIMENOrdering Facility: [facility] Address: [address] [place] [address] Performed By: #### Niko BOWDENED, 0-3, 61691-1 ####[facility]ORYCLIA [id number] [place] [address] [place] Creatinine [Mass/Vol] 0.82 mg/dL Normal 0.58-0.96 [facility] Comment on above: Order Comment: Speci men Type: BLOOD SPECIMENOrdering Facility: [facility] Address: [address] [place] [address] Performed By: #### H CGED, 3040-3, 47908-2 ####[facility]ORYCLIA [id number] [place] [address] [place] [facility] [place] Creatinine and Glomerular filtration rate.predicted panel (S/P/Bld) 91 mL/min/1.73m??? Normal >=60 [facility] Comment on above: Order Comment: Speci men Type: BLOOD SPECIMENOrdering Facility: [facility] Address: [address] [place] [address] Result Comment: Vidal mated Glomerular Filtration Rate [...] GFR. Performed By: #### H CGED, 0-3, 54658-2 ####[facility]ORYCLIA [id number] [place] [address] [place] Glucose [Mass/Vol] 78 mg/dL Normal 74-99 [facility] Comment on above: Order Comment: David ponce Type: BLOOD SPECIMENOrdering Facility: [facility] Address: [address] [place] [address] Result Comment: The [place] Diabetes Association (ADA) provides guidance for cutoff [...] Standards of Medical Care in Diabetes 2016, [place] Diabetes Association. Diabetes Care. 2016.39(Suppl 1). Performed By: #### H CGED, 3039-3, 31681-6 ####[facility]ORYCLIA [id number] [place] [address] [place] Potassium [Moles/Vol] 4.4 mmol/L Normal 3.7-5.1 [facility] Comment on above: Order Comment: David ponce Type: BLOOD SPECIMENOrdering Facility: [facility] Address: [address] [place] [id number] Performed By: #### H CGED, 0-3, 49995-8 ####[facility]ORYCLIA [id number] [address] Protein [Mass/Vol] 6.8 g/dL Normal 6.3-8.0 [facility] Comment on above: Order Comment: Speci men Type: BLOOD SPECIMENOrdering Facility: [facility] Address: [address] [place] [address] Performed By: #### H CGED, 3040-3, 42651-9 ####[facility] LABORATORYCLIA [id number] [place] [address] [facility] [place] Sodium [Moles/Vol] 138 mmol/L Normal 136-144 [facility] Comment on above: Order Comment: Speci men Type: BLOOD SPECIMENOrdering Facility: [facility] Address: [address] [place] [address] Performed By: #### H CGED, 3040-3, 29874-9 ####[facility] LABORATORYCLIA [id number] [address] Urea nitrogen [Mass/Vol] 16 mg/dL Normal 7-21 [facility] Comment on above: Order Comment: Speci men Type: BLOOD SPECIMENOrdering Facility: [facility] Address: [address] [place] [address] Performed By: #### H CGED, 3040-3, 01770-7 ####[facility] LABORATORYCLIA [id number] [address] ED NOTEon 07-04-2024 ED NOTE HNO ID: [id number] Author: JOSIE RODAS RN Service: Nursing Author Type: Registered Nurse Type: ED Notes Filed: 07/04/2024 21:35 Note Text: Pt is tearful at times Normal [facility] ED NOTE HNO ID: [id number] Author: JOSIE RODAS RN Service: Nursing Author Type: Registered Nurse Type: ED Notes Filed: 07/04/2024 21:34 Note Text: Pt has completed the ultrasound she has ambulated to the bathroom gait is steady pt states she still has abd pain and feels bloated Normal [facility] ED NOTE HNO ID: [id number] Author: JOSIE RODAS RN Service: Nursing Author Type: Registered Nurse Type: ED Notes Filed: 07/04/2024 21:16 Note Text: Pt has tolerated the ultrasound with mild distress Normal [facility] ED NOTE HNO ID: [id number] Author: JOSIE RODAS RN Service: Nursing Author Type: Registered Nurse Type: ED Notes Filed: 07/04/2024 20:01 Note Text: Pelvic exam per MARCIO Cueva pt tolerated fair Sample was sent Normal [facility] ED NOTE HNO ID: [id number] Author: JOSIE RODAS RN Service: Nursing Author Type: Registered Nurse Type: ED Notes Filed: 07/04/2024 19:47 Note Text: PA is bedside Normal [facility] ED NOTE HNO ID: [id number] Author: JOSIE RODAS RN Service: Nursing Author Type: Registered Nurse Type: ED Notes Filed: 07/04/2024 19:08 Note Text: Pt is in a position of comfort Normal [facility] ED PROGRESS NOTE (PROVIDER)o n 07-04-2024 ED PROGRESS NOTE (PROVIDER) HNO ID: [id number] Author: SHANNA HARRIS MD Service: Emergency Medicine [...] intractable abdominal pain. Reportedly, was seen at [facility] on two occasions with labs and CTs (non of which we can see in EMR) thought to possibly have Crohn's. PCP is Dr. Wilkinson who directed patient to come to [facility]. At time of sign out patient is [...] 2024 TIME: 7:24 PM PAGER/CONTACT #: [facility] ED PROV NOTEon 07-04-2024 ED PROV NOTE HNO ID: [id number] Author: SHANNA HARRIS MD Service: ? Author Type: Physician Fisher Pot Type: ED Provider Notes Filed: 07/04/2024 20:18 [...] last 4 days. She was seen at [facility] where she had labs and CAT scan [...] with: Abdominal Pain: was seen twice at [place] her dr andres her to come here [...] PERMANENT TRANSVENOUS PACEMAKER INSERTION 2006 ICD implant, [facility] ANESTHESIA TUBAL LIGATION/TRANSECTION APPENDECTOMY 05/05/2014 , lap [...] use: N (more content not included)... Normal [facility] HAV IgM Ser Qlon 07-04-2024 HAV IgM Ql (S) Negative Normal Negative [facility] Comment on above: Order Comment: Speci men Type: BLOOD SPECIMENOrdering Facility: [facility] Address: [address] [place] [address] Result Comment: No e vidence of recent infection with Hepatitis A virus. Performed By: #### 1 975-2, 51343-6, 00085-5, 5194-3 ####[facility] LABCLIA [id number] [place] [address] [place] HBV core IgM Ser Qlon 2024 HBV core IgM Ql (S) Negative Normal Negative [facility] Comment on above: Order Comment: Speci men Type: BLOOD SPECIMENOrdering Facility: [facility] Address: [address] [place] [address] Result Comment: No e vidence of recent infection with Hepatitis B virus. Should recent infection be suspected, repeat testing may be considered 3-4 weeks after this draw. Performed By: #### 1 975-2, 83497-9, 41562-6, 5194-3 ####[facility] LABCLIA [id number] [place] [id number] [place] HBV surface Ag Ser Qlon 06-13 HBV surface Ag Ql (S) Negative Normal Negative [facility] Comment on above: Order Comment: Speci men Type: BLOOD SPECIMENOrdering Facility: [facility] Address: [address] [place] [address] Performed By: #### 1 975-2, 14795-2, 90594-8, 5194-3 ####[facility] LABCLIA [id number] [place] [address] [place] HCV RNA BIMAL+probe Qnon 07-04 HCV RNA BIMAL+probe Ql Not detected Normal Not detected [facility] Comment on above: Order Comment: Speci men Type: BLOOD SPECIMEN [facility] Address: [address] [place] [address] Performed By: #### 1 1011-4 #### [facility] LAB CLIA [id number] [address] [place] [address] [place] Lipase SerPl-cCncon 07-05-19 25 Lipase [Catalytic activity/Vol] 26 U/L Normal 16- [facility] Comment on above: Order Comment: Speci men Type: BLOOD SPECIMENOrdering Facility: [facility] Address: [address] [place] [address] Performed By: #### H CGED, 3040-3, 01079-7 ####[facility] LABORATORYCLIA [id number] [place] [address] [place] Pacemaker Checkon 07-04-2024 Pacemaker Check Normal [facility] TRICHOMONAS VAGINALIS NAATon 07-04-2024 T. vaginalis DNA BIMAL+probe Ql (Unsp spec) Not detected Normal Not detected [facility] Comment on above: Order Comment: Speci men Type: BLOOD SPECIMEN [facility] Address: [address] [place] [address] Performed By: #### 5 8410-2 #### [facility] CLIA [id number] [address] [place] [address] [place] US FEMALE PELV TRANSABD COMP LETEon 07-04-2024 US FEMALE PELV TRANSABD COMPLETE * * *Final Report* * * DATE OF EXAM: Jul 04 2024 9:32PM MDU 1065 - US FEMALE PELV TRANSABD COMPLETE / PROCEDURE REASON: Pelvic pain, negative beta-HCG, rn admit etiology suspected * * * * Physician Interpretation * * * * EXAMINATION: TRANSVAGINAL AND LIMITED TRANSABDOMINAL FEMALE PELVIC ULTRASOUND CLINICAL HISTORY: Pelvic pain TECHNIQUE: Sonography of the pelvis was performed by transvaginal and transabdominal (limited) techniques. Images were obtained and stored in a permanent archive. MQ: [employer]_2021 COMPARISON: CT abdomen and pelvis same day [...] reportedly surgically absent. 3. Moderate pelvic ascites. Tap And Die Maker Technician: KIM Transcribe Date/Time: Jul 05 2024 12:55A Dictated by : ANASTASIA MEADOWS DO This examination was interpreted and the report reviewed and electronically signed by: ANASTASIA MEADOWS DO on Jul 05 2024 1:06AM EST [id number] [facility] US FEMALE PELVIS TRANSVAGon 07-04-2024 US FEMALE PELVIS TRANSVAG * * *Final Report* * * DATE OF EXAM: Jul 04 2024 9:32PM MDU 1060 - US FEMALE PELVIS TRANSVAG / PROCEDURE REASON: Pelvic pain, negative beta-HCG, rn admit etiology suspected * * * * Physician [...] reportedly surgically absent. 3. Moderate pelvic ascites. Tap And Die Maker Technician: PSCManjinder Transcribe Date/Time: Jul 05 2024 12:55A Dictated by : ANASTASIA MEADOWS DO This examination was interpreted and the report reviewed and electronically signed by: ANASTASIA MEADOWS DO on Jul 05 2024 1:06AM EST [id number] Normal [facility] Urinalysis complete panel (U )on 07-04-2024 Bilirubin Ql (U) Negative Normal Negative [facility] Comment on above: Order Comment: Speci men Type: URINE SPECIMENOrdering Facility: [facility] Address: [address] [place] [address] Performed By: #### 2 4356-8 ####[facility] LABORATORYCLIA [id number] [place] [address] [place] Clarity (Unsp spec) Clear Normal Clear [facility] Comment on above: Order Comment: Speci men Type: URINE SPECIMENOrdering Facility: [facility] Address: [address] [place] [address] Performed By: #### 2 4356-8 ####[facility] LABORATORYCLIA [id number] [place] [address] [place] Color (U) Yellow Normal Yellow [facility] Comment on above: Order Comment: Speci men Type: URINE SPECIMENOrdering Facility: [facility] Address: [address] [place] [address] Performed By: #### 2 4356-8 ####[facility] LABORATORYCLIA [id number] [place] [address] [place] Epithelial cells LM.HPF (Urine sed) [#/Area] Few Normal [facility] Comment on above: Order Comment: Speci men Type: URINE SPECIMENOrdering Facility: [facility] Address: [address] [place] [address] Performed By: #### 2 4356-8 ####[facility] LABORATORYCLIA [id number] [address] OF [place] Glucose Test strip (U) [Mass/Vol] Negative Normal Negative [facility] Comment on above: Order Comment: Speci men Type: URINE SPECIMENOrdering Facility: [facility] Address: [address] [place] [address] Performed By: #### 2 4356-8 ####[facility] LABORATORYCLIA [id number] [place] [address] [place] Hemoglobin Ql (U) 1+ Abnormal Negative [facility] Comment on above: Order Comment: Speci men Type: URINE SPECIMENOrdering Facility: [facility] Address: [address] [place] [address] Performed By: #### 2 4356-8 ####[facility] LABORATORYCLIA [id number] [place] [address] [place] Ketones Ql (U) Negative Normal Negative [facility] Comment on above: Order Comment: Speci men Type: URINE SPECIMENOrdering Facility: [facility] Address: [address] [place] [address] Performed By: #### 2 4356-8 ####[facility] LABORATORYCLIA [id number] [place] [address] [place] [facility] [place] Leukocyte esterase Test strip Ql (U) Negative Normal Negative [facility] Comment on above: Order Comment: Speci men Type: URINE SPECIMENOrdering Facility: [facility] Address: [address] [place] [address] Performed By: #### 2 4356-8 ####[facility] LABORATORYCLIA [id number] [place] [address] [place] Nitrite Ql (U) Negative Normal Negative [facility] Comment on above: Order Comment: Speci men Type: URINE SPECIMENOrdering Facility: [facility] Address: [address] [place], [place] [address] Performed By: #### 2 4356-8 ####[facility] LABORATORYCLIA [id number] [address] pH (U) 6.0 [pH] Normal 5.0-8.0 [facility] Comment on above: Order Comment: Speci men Type: URINE SPECIMENOrdering Facility: [facility] Address: [address] [place] [address] Performed By: #### 2 4356-8 ####[facility] LABORATORYCLIA [id number] [address] Protein (U) [Mass/Vol] Negative Normal Negative [place] Comment on above: Order Comment: Speci men Type: URINE SPECIMENOrdering Facility: [facility] Address: [address] [place] [address] Performed By: #### 2 4356-8 ####[facility] LABORATORYCLIA [id number] [place] [address] [place] RBC LM.HPF (Urine sed) [#/Area] 0-3 /HPF Normal 0-3 /HPF [facility] Comment on above: Order Comment: Speci men Type: URINE SPECIMENOrdering Facility: [facility] Address: [address] [place] [address] Performed By: #### 2 4356-8 ####[facility] LABORATORYCLIA [id number] [address] Specific gravity (U) [Rel density] 1.010 Normal 1.005-1.03 0 [facility] Comment on above: Order Comment: Speci men Type: URINE SPECIMENOrdering Facility: [facility] Address: [address] [place] [address] Performed By: #### 2 4356-8 ####[facility] LABORATORYCLIA [id number] [address] Urobilinogen Ql (U) 0.2 EU/dL Normal 0.2-1.0 EU/dL [facility] Comment on above: Order Comment: Speci men Type: URINE SPECIMENOrdering Facility: [facility] Address: [address] [place], [place] [address], [place] [address] Performed By: #### 2 4356-8 ####[facility] LABORATORYCLIA [id number] [address] WBC LM.HPF (Urine sed) [#/Area] 0-5 /HPF Normal 0-5 /HPF [facility] Comment on above: Order Comment: Speci men Type: URINE SPECIMENOrdering Facility: [facility] Address: [address] [place] [place] [id number] Performed By: #### 2 4356-8 ####[facility] LABORATORYCLIA [id number] [place] [address] [place] Abdomen/Pelvis W IV Cont ONL Yon 07-03-2024 Abdomen/Pelvis W IV Cont ONLY Normal [facility] Absolute lymphocyte countOrd ered By: Nabor Frey on 07-03-2024 Lymphocytes Auto (Unsp spec) [#/Vol] 0.93 10*3/uL 0.83-4.51 [facility] Absolute neutrophil countOrd ered By: Nabor Frey on 07-03-2024 Neutrophils (Bld) [#/Vol] 20.3 10*3/uL High 2.0-7.7 [facility] Anion gap in Serum or Plasma Ordered By: Nabor Frey on 07-03-2024 Anion gap [Moles/Vol] 10 mmol/L 5-15 [facility] Automated lymphocyte count a s percentage of total leukocytesOrdered By: Nabor Frey on 07-03-2024 Lymphocytes/100 WBC Auto (Unsp spec) 4.2 % Low 19-41 [facility] BUN/creatinine ratioOrdered By: Nabor Frey on 07-03-2024 Urea nitrogen/Creatinine [Mass ratio] 17.1 mg/mg 10- [facility] Basic Metabolic Profile (BMP )on 07-03-2024 BUN/CRE 17.1 RATIO Normal 12-31 [facility] Comment on above: Performed By: #### L 501.2450, L700.6800, L500.2500, L500.3400, L100.0100 ####[facility] [address] [place], [address] Calcium [Mass/Vol] 9.3 mg/dL Normal 7.6-11.0 [facility] Comment on above: Performed By: #### L 501.2450, L700.6800, L500.2500, L500.3400, L100.0100 ####[facility] [address] [place], [address] Chloride [Moles/Vol] 106 mmol/L Normal 98-108 [facility] Comment on above: Performed By: #### L 501.2450, L700.6800, L500.2500, L500.3400, L100.0100 ####[facility] [address] [place], [address] CO2 [Moles/Vol] 21.4 mmol/L Normal 21.0-32.0 [facility] Comment on above: Performed By: #### L 501.2450, L700.6800, L500.2500, L500.3400, L100.0100 ####[facility] [address] [place], [address] Creatinine [Mass/Vol] 0.81 mg/dL Normal 0.70-1.20 [facility] Comment on above: Performed By: #### L 501.2450, L700.6800, L500.2500, L500.3400, L100.0100 ####[facility] [address] [place], [address] ECRCL 76.53 ml/min Normal 50-250 [facility] Comment on above: Performed By: #### L 501.2450, L700.6800, L500.2500, L500.3400, L100.0100 ####[facility] [address] [place], [address] GAP 10 Normal 5-15 [facility] Comment on above: Performed By: #### L 501.2450, L700.6800, L500.2500, L500.3400, L100.0100 ####[facility] [address] [place], [address] GFR/1.73 sq M.predicted among non-blacks MDRD (S/P/Bld) [Vol rate/Area] 91 mL/min/{1.73_m2} Normal >60 [facility] Comment on above: Result Comment: mL/m in/1.73m2 CKD-EPI Creatinine Equation (2020) Performed By: #### L 501.2450, L700.6800, L500.2500, L500.3400, L100.0100 ####[facility] [address] [place], [address] Glucose [Mass/Vol] 104 mg/dL High 70-99 [facility] Comment on above: Performed By: #### L 501.2450, L700.6800, L500.2500, L500.3400, L100.0100 ####[facility] [address] [place], [address] Potassium [Moles/Vol] 4.4 mmol/L Normal 3.3-5.1 [facility] Comment on above: Performed By: #### L 501.2450, L700.6800, L500.2500, L500.3400, L100.0100 ####[facility] [address] [place], [address] Sodium [Moles/Vol] 138 mmol/L Normal 133-145 [facility] Comment on above: Performed By: #### L 501.2450, L700.6800, L500.2500, L500.3400, L100.0100 ####[facility] [address] [place], [address] Urea nitrogen [Mass/Vol] 14 mg/dL Normal 4-19 [facility] Comment on above: Performed By: #### L 501.2450, L700.6800, L500.2500, L500.3400, L100.0100 ####[facility] [address] [place], [address] Basophil percentageOrdered B y: Nabor Frey on 07-03-2024 Basophils/100 WBC (Bld) 0.2 % 0-1 [facility] Bilirubin Test strip Ql (U)O rdered By: Nabor Frey on 07-03-2024 Bilirubin Ql (U) Negative Negative [facility] Bilirubin directOrdered By: Nabor Frey on 07-03-2024 Bilirubin.direct [Mass/Vol] 0.27 mg/dL 0.00-0.30 [facility] Bilirubin, totalOrdered By: Nabor Frey on 07-03-2024 Bilirubin [Mass/Vol] 0.64 mg/dL 0.00-1.30 [facility] CBC W/Diff, Automatedon 06-13 Absolute Lymph 0.93 X10 3/uL Normal 0.83-4.51 [facility] Comment on above: Performed By: #### L 501.2450, L700.6800, L500.2500, L500.3400, L100.0100 ####[facility] [address] [place], [address] Absolute Neut 20.3 X10 3/uL High 2.0-7.7 [facility] Comment on above: Performed By: #### L 501.2450, L700.6800, L500.2500, L500.3400, L100.0100 ####[facility] [address] [place], [address] Basophils/100 WBC (Bld) 0.2 % Normal 0-1 [facility] Comment on above: Performed By: #### L 501.2450, L700.6800, L500.2500, L500.3400, L100.0100 ####[facility] [address] [place], [address] Eosinophils/100 WBC (Bld) 0.1 % Normal 0-5 [facility] Comment on above: Performed By: #### L 501.2450, L700.6800, L500.2500, L500.3400, L100.0100 ####[facility] [address] [place], [address] Erythrocyte distribution width (RBC) [Ratio] 15.3 % High 11.6-14.6 [facility] Comment on above: Performed By: #### L 501.2450, L700.6800, L500.2500, L500.3400, L100.0100 ####[facility] [address] [place], [address] Hematocrit (Bld) [Volume fraction] 41.5 % Normal 37-47 [facility] Comment on above: Performed By: #### L 501.2450, L700.6800, L500.2500, L500.3400, L100.0100 ####[facility] [address] [place], [address] Hemoglobin (Bld) [Mass/Vol] 13.8 g/dL Normal 12.0-15.0 [facility] Comment on above: Performed By: #### L 501.2450, L700.6800, L500.2500, L500.3400, L100.0100 ####[facility] [address] [place], [address] IG% 0.900 Normal 0.0-0.9 [facility] Comment on above: Result Comment: IG% - Immature Granulocytes (promyelocytes, myelocytes andmetamyelocytes) > 1% indicates that a LEFT SHIFT is Present. Performed By: #### L 501.2450, L700.6800, L500.2500, L500.3400, L100.0100 ####[facility] [address] [place], [address] Lymphocytes/100 WBC (Bld) 4.2 % Low 19-41 [facility] Comment on above: Performed By: #### L 501.2450, L700.6800, L500.2500, L500.3400, L100.0100 ####[facility] [address] [place], [address] MCH (RBC) [Entitic mass] 32.6 pg High 27.0-32.0 [facility] Comment on above: Performed By: #### L 501.2450, L700.6800, L500.2500, L500.3400, L100.0100 ####[facility] [address] [place], [address] MCHC (RBC) [Mass/Vol] 33.3 g/dL Normal 32-36 [facility] Comment on above: Performed By: #### L 501.2450, L700.6800, L500.2500, L500.3400, L100.0100 ####[facility] [address] [place], [address] MCV (RBC) [Entitic vol] 98.1 fL Normal 81-99 [facility] Comment on above: Performed By: #### L 501.2450, L700.6800, L500.2500, L500.3400, L100.0100 ####[facility] [address] [place], [address] Monocytes/100 WBC (Bld) 2.6 % Normal 0-10 [facility] Comment on above: Performed By: #### L 501.2450, L700.6800, L500.2500, L500.3400, L100.0100 ####[facility] [address] [place], [address] Neutrophils/100 WBC (Bld) 92.0 % High 47-70 [facility] Comment on above: Performed By: #### L 501.2450, L700.6800, L500.2500, L500.3400, L100.0100 ####[facility] [address] [place], [address] Nucleated RBC (Bld) [#/Vol] 0 10*3/uL Normal 0-5 [facility] Comment on above: Performed By: #### L 501.2450, L700.6800, L500.2500, L500.3400, L100.0100 ####[facility] [address] [place], [address] Platelet mean volume (Bld) [Entitic vol] 11.2 fL Normal 6.2-12.0 [facility] Comment on above: Performed By: #### L 501.2450, L700.6800, L500.2500, L500.3400, L100.0100 ####[facility] [address] [place], [address] Platelets (Bld) [#/Vol] 237 10*3/uL Normal 150-450 [facility] Comment on above: Performed By: #### L 501.2450, L700.6800, L500.2500, L500.3400, L100.0100 ####[facility] [address] [place], [address] RBC (Bld) [#/Vol] 4.23 10*6/uL Normal 4.2-5.4 [facility] Comment on above: Performed By: #### L 501.2450, L700.6800, L500.2500, L500.3400, L100.0100 ####[facility] [address] [place], [address] RDW SD 54.4 fl High 35.1-43.9 [facility] Comment on above: Performed By: #### L 501.2450, L700.6800, L500.2500, L500.3400, L100.0100 ####[facility] [address] [place], [address] WBC (Bld) [#/Vol] 22.0 10*3/uL High 4.4-11.0 [facility] Comment on above: Performed By: #### L 501.2450, L700.6800, L500.2500, L500.3400, L100.0100 ####[facility] [address] [place], [address] Carbon dioxide, total [Moles /volume] in Central venous bloodOrdered By: Nabor Frey on 07-03-2024 CO2 [Moles/Vol] 21.4 mmol/L 21.0-32.0 [facility] Chloride assayOrdered By: Carlton Frey on 07-03-2024 Chloride [Moles/Vol] 106 mmol/L 98-108 [facility] Emergency Department Summary on 07-03-2024 Emergency Department Summary Normal [facility] Eosinophil percentageOrdered By: Nabor Frey on 07-03-2024 Eosinophils/100 WBC (Bld) 0.1 % 0-5 [facility] Erythrocyte distribution wid th ratioOrdered By: Nabor Frey on 07-03-2024 Erythrocyte distribution width (RBC) [Ratio] 15.3 % High 11.6-14.6 [facility] Erythrocyte distribution wid th standard deviationOrdered By: Nabor Frey on 07-03-2024 Erythrocyte distribution width (RBC) [Ratio] 54.4 fl High 35.1-43.9 [facility] Gastroenterology Visit Repor ton 07-03-2024 Gastroenterology Visit Report Normal [facility] Glomerular filtration rate ( GFR) estimation/1.73 sq m using serum, plasma, or whole bOrdered By: Nabor Frey on 07-03-2024 GFR/1.73 sq M.predicted among non-blacks MDRD (S/P/Bld) [Vol rate/Area] 91 mL/min/{1.73_m2} >60 [facility] Comment on above: mL/min/1.73m2 CKD-EP I Creatinine Equation (2020) Hematocrit Auto (Bld) [Volum e fraction]Ordered By: Nabor Frey on 07-03-2024 Hematocrit (Bld) [Volume fraction] 41.5 % 37-47 [facility] Hemoglobin measurementOrdere d By: Nabor Frey on 07-03-2024 Hemoglobin (Bld) [Mass/Vol] 13.8 g/dL 12.0-15.0 [facility] Immature granulocytes/100 WB C Auto (Bld)Ordered By: Nabor Frey on 07-03-2024 Immature granulocytes/100 WBC (Bld) 0.900 % 0.0-0.9 [facility] Comment on above: IG% - Immature Granu locytes (promyelocytes, myelocytes and metamyelocytes) > 1% indicates that a LEFT SHIFT is Present. Ketones Test strip Ql (U)Ord ered By: Nabor Frey on 07-03-2024 Ketones Ql (U) Negative Negative [facility] Laboratory - Chemistry and C hemistry - challengeOrdered By: Nabor Frey on 07-03-2024 AST [Catalytic activity/Vol] 33 U/L High <32 [facility] Lipaseon 07-03-2024 Lipase [Catalytic activity/Vol] 25 U/L Normal 13-75 [facility] Comment on above: Result Comment: Plea se note:LIPASE revised reference range effective 22.New Lipase methodology. Expected to produce lower valuesthan the previous assay method.NEW Reference Range: 13 - 75 U/L Performed By: #### L 501.2450, L700.6800, L500.2500, L500.3400, L100.0100 ####[facility] [address] [place], [place], [id number] Lipase measurementOrdered By : Nabor Frey on 07-03-2024 Lipase [Catalytic activity/Vol] 25 U/L 13-75 [facility] Comment on above: Please note:LIPASE r evised reference range effective 22. New Lipase methodology. Expected to produce lower values than the previous assay method. NEW Reference Range: 13 - 75 U/L Liver Profileon 07-03-2024 Albumin [Mass/Vol] 4.2 g/dL Normal 3.5-5.0 [facility] Comment on above: Performed By: #### L 501.2450, L700.6800, L500.2500, L500.3400, L100.0100 ####[facility] [address] [place], [address] ALK PHOS 111 U/L High 35-104 [facility] Comment on above: Performed By: #### L 501.2450, L700.6800, L500.2500, L500.3400, L100.0100 ####[facility] [address] [place], [address] ALT [Catalytic activity/Vol] 33 U/L Normal <=34 [facility] Comment on above: Performed By: #### L 501.2450, L700.6800, L500.2500, L500.3400, L100.0100 ####[facility] [address] [place], [address] AST [Catalytic activity/Vol] 33 U/L High <=31 [facility] Comment on above: Performed By: #### L 501.2450, L700.6800, L500.2500, L500.3400, L100.0100 ####[facility] [address] [place], [address] Bilirubin [Mass/Vol] 0.64 mg/dL Normal 0.00-1.30 [facility] Comment on above: Performed By: #### L 501.2450, L700.6800, L500.2500, L500.3400, L100.0100 ####[facility] [address] [place], [address] Bilirubin.direct [Mass/Vol] 0.27 mg/dL Normal 0.00-0.30 [facility] Comment on above: Performed By: #### L 501.2450, L700.6800, L500.2500, L500.3400, L100.0100 ####[facility] [address] [place], [address] Globulin (S) [Mass/Vol] 2.3 g/dL Normal 2.2-4.2 [facility] Comment on above: Performed By: #### L 501.2450, L700.6800, L500.2500, L500.3400, L100.0100 ####[facility] [address] [place], [address] T PROT 6.5 g/dL Normal 5.9-8.4 [facility] Comment on above: Performed By: #### L 501.2450, L700.6800, L500.2500, L500.3400, L100.0100 ####[facility] [address] [place], [address] MCV (mean corpuscular volume ) determinationOrdered By: Nabor Frey on 07-03-2024 MCV (RBC) [Entitic vol] 98.1 fL 81-99 [facility] Mean corpuscular hemoglobin (MCH) determinationOrdered By: Nabor Frey on 07-03-2024 MCH (RBC) [Entitic mass] 32.6 pg High 27.0-32.0 [facility] Mean corpuscular hemoglobin concentration (MCHC) determinationOrdered By: Nabor Frey on 07-03-2024 MCHC (RBC) [Mass/Vol] 33.3 g/dL 32-36 [facility] Mean platelet volume determi nationOrdered By: Nabor Frey on 07-03-2024 Platelet mean volume (Bld) [Entitic vol] 11.2 fL 6.2-12.0 [facility] Microscopic analysis of urin e for red blood cells (RBC)Ordered By: Nabor Frey on 07-03-2024 Microscopic analysis of urine for red blood cells (RBC) 0-5 SEEN /hpf 0-5 [facility] Monocyte percentageOrdered B y: Nabor Frey on 07-03-2024 Monocytes/100 WBC (Bld) 2.6 % 0-10 [facility] Mucus LM Ql (Urine sed)Order ed By: Nabor Frey on 07-03-2024 Mucus Ql (Urine sed) 0 SEEN /hpf [facility] Neutrophil percentageOrdered By: Nabor Frey on 07-03-2024 Neutrophils/100 WBC (Bld) 92.0 % High 47-70 [facility] Nitrite Test strip Ql (U)Ord ered By: Nabor Frey on 07-03-2024 Nitrite Ql (U) Negative Negative [facility] No Panel InformationOrdered By: Nabor Frey on 07-03-2024 33 U/L High <32 [facility] Nucleated red blood cell per centageOrdered By: Nabor Frey on 07-03-2024 Nucleated RBC/100 WBC (Bld) [Ratio] 0 % 0-5 [facility] Platelet countOrdered By: Carlton Frey on 07-03-2024 Platelets (Bld) [#/Vol] 237 10*3/uL 150-450 [facility] Potassium measurement (mass/ volume)Ordered By: Nabor Frey on 07-03-2024 Potassium (Unsp spec) [Mass/Vol] 4.4 mmol/L 3.3-5.1 [facility] ,Serum,hCG Quali.on 07-03-2024 HCG, SERUM QUAL Negative Normal [facility] Comment on above: Performed By: #### L 501.2450, L700.6800, L500.2500, L500.3400, L100.0100 ####[facility] [address] [place], [place], [id number] Protein Test strip Ql (U)Ord ered By: Nabor rFey on 07-03-2024 Protein Ql (U) 30 mg/dl High Negative [facility] RBC Auto (Bld) [#/Vol]Ordere d By: Nabor Frey on 07-03-2024 RBC (Bld) [#/Vol] 4.23 10*6/uL 4.2-5.4 [facility] Serum beta-hCG test, qualita tiveOrdered By: Nabor Frey on 07-03-2024 Beta HCG ( test) Ql Negative [facility] Serum creatinine measurement (mass/volume)Ordered By: Nabor Frey on 07-03-2024 Creatinine [Mass/Vol] 0.81 mg/dL 0.70-1.20 [facility] Serum globulin measurementOr dered By: Nabor Frey on 07-03-2024 Globulin (S) [Mass/Vol] 2.3 g/dL 2.2-4.2 [facility] Serum glucose measurement (m ass/volume)Ordered By: Nabor Frey on 07-03-2024 Glucose [Mass/Vol] 104 mg/dL High 70-99 [facility] Serum or plasma alanine hair otransferase (ALT) measurementOrdered By: Nabor Frey on 07-03-2024 ALT [Catalytic activity/Vol] 33 U/L <35 [facility] Serum or plasma albumin leslie urement (mass/volume)Ordered By: Nabor Frey on 07-03-2024 Albumin [Mass/Vol] 4.2 g/dL 3.5-5.0 [facility] Serum or plasma alkaline delfin sphatase measurementOrdered By: Nabor Frey on 07-03-2024 ALP [Catalytic activity/Vol] 111 U/L High 35-104 [facility] Serum or plasma calcium leslie urement (mass/volume)Ordered By: Nabor Frey on 07-03-2024 Calcium [Mass/Vol] 9.3 mg/dL 7.6-11.0 [facility] Serum or plasma urea nitroge n measurement (mass/volume)Ordered By: Nabor Frey on 07-03-2024 Urea nitrogen [Mass/Vol] 14 mg/dL 4-19 [facility] Sodium levelOrdered By: Charli Frey on 07-03-2024 Sodium [Moles/Vol] 138 mmol/L 133-145 [facility] Squamous epithelial cells de tection in urine sediment by light microscopyOrdered By: Nabor Frey on 07-03-2024 Epithelial cells.squamous LM Ql (Urine sed) 10-25 SEEN /hpf 5-10 [facility] Total proteinOrdered By: Juan Daniel Frey on 07-03-2024 Protein [Mass/Vol] 6.5 g/dL 5.9-8.4 [facility] Urinalysis, Completeon 07-03 BILIRUBIN URINE Negative Normal Negative [facility] Comment on above: Order Comment: CLEAN CATCH Performed By: #### L 400.0001 ####[facility] [address] [place], [address] Clarity (U) Sl. Cloudy Normal Clear [facility] Comment on above: Order Comment: CLEAN CATCH Performed By: #### L 400.0001 ####[facility] [address] [place], [address] Color (U) Yellow Normal Yellow [facility] Comment on above: Order Comment: CLEAN CATCH Performed By: #### L 400.0001 ####[facility] [address] [place], [address] GLUCOSE, UR Normal Normal Normal [facility] Comment on above: Order Comment: CLEAN CATCH Performed By: #### L 400.0001 ####[facility] [address] [place], [address] KETONE UR Negative Normal Negative [facility] Comment on above: Order Comment: CLEAN CATCH Performed By: #### L 400.0001 ####[facility] [address] [place], [address] LEUK ESTERASE Negative Normal Negative [facility] Comment on above: Order Comment: CLEAN CATCH Performed By: #### L 400.0001 ####[facility] [address] [place], [address] Nitrite Ql (U) Negative Normal Negative [facility] Comment on above: Order Comment: CLEAN CATCH Performed By: #### L 400.0001 ####[facility] [address] [place], [address] OCCULT BLOOD-UR 25 /ul Abnormal Negative [facility] Comment on above: Order Comment: CLEAN CATCH Performed By: #### L 400.0001 ####[facility] [address] [place], [address] pH UR 6.5 Normal 5.0 - 8.0 [facility] Comment on above: Order Comment: CLEAN CATCH Performed By: #### L 400.0001 ####[facility] [address] [place], [address] PROT DIPSTX 30 mg/dl Abnormal Negative [facility] Comment on above: Order Comment: CLEAN CATCH Performed By: #### L 400.0001 ####[facility] [address] [place], [address] SP.GR. DIPSTX 1.010 Normal 1.002-1.03 0 [facility] Comment on above: Order Comment: CLEAN CATCH Performed By: #### L 400.0001 ####[facility] [address] [place], [address] UROBILI Normal Normal Normal [facility] Comment on above: Order Comment: CLEAN CATCH Performed By: #### L 400.0001 ####[facility] [address] [place], [address] Urine clarityOrdered By: Juan Daniel Frey on 07-03-2024 Clarity (U) Sl. Cloudy Clear [facility] Urine color determinationOrd ered By: Nabor Frey on 07-03-2024 Color (U) Yellow Yellow [facility] Urine glucose detectionOrder ed By: Nabor Frey on 07-03-2024 Glucose Ql (U) Normal mg/dl Normal [facility] Urine leukocyte esterase det ection by dipstickOrdered By: Nabor Frey on 07-03-2024 Leukocyte esterase Test strip Ql (U) Negative Negative [facility] Urine pHOrdered By: Nabor segal on 07-03-2024 pH (U) 6.5 [pH] 5.0 - 8.0 [facility] Urine sediment bacteria coun t by microscopy (number/high power field)Ordered By: Nabor Frey on 07-03-2024 Bacteria LM.HPF (Urine sed) [#/Area] 1 /[HPF] None Seen [facility] Urine specific gravity measu rementOrdered By: Nabor Frey on 07-03-2024 Specific gravity (U) [Rel density] 1.010 1.002-1.03 0 [facility] Urine urobilinogen measureme ntOrdered By: Nabor Frey on 07-03-2024 Urobilinogen Ql (U) Normal mg/dl Normal [facility] White blood cell (WBC) count Ordered By: Nabor Frey on 07-03-2024 WBC (Bld) [#/Vol] 22.0 10*3/uL High 4.4-11.0 [facility] White blood cell countOrdere d By: Nabor Frey on 07-03-2024 White blood cell count 0-5 SEEN /hpf 0-5 [facility] 36on 07-01-2024 36 Your fax has been successfully sent to Dr. Wilkinson at [phone]. From: Ella Cohen RN 07/01/2024 3:37:02 PM Origin Record Created by SHANTE 07/01/2024 3:37:12 PM Conversion [[id number]] Type: application/postscript G3 to TIFF #1: Success [image/g3] (77ms) GhostScript TIFF #1: Success [image/tiff] (209ms) ([id number]) 07/01/2024 3:37:18 PM Transmission Record Sent to [id number] with remote ID [phone] Result: Success Page record: 1 - 3 Elapsed time: 01:39 on channel 48 07/01/2024 3:37:19 PM Conversion Successfully created cover sheet. Type: application/vnd.openxmlf ormats-officedocument.wo rdprocessingml.document G3 to TIFF #1: Success [image/g3] (11ms) GhostScript TIFF #1: Success [image/tiff] (70ms) Resubmitted: [application/postscript] Word Automation #1: Success [image/g3] (1519ms) ([id number]) [facility] 36 S: Patient spoke wit h [facility] nurse regarding abdominal pain, shortness of breath [...] smelled fecal. 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 R: Patient understands care advice to go to ED now or call 911. Patient states she cannot leave her child at this time, but will go as soon as she has someone to take over care. Patient strongly advised to go immediately. She advises she will go to [place]. No further needs at this time. Patient [...] menstrual period? no Protocols used: Abdominal Pain- Rusfs-[id number]-DF Normal [facility] Abdomen/Pelvis W IV Cont ONL Yon 07-01-2024 Abdomen/Pelvis W IV Cont ONLY Normal [facility] Absolute lymphocyte countOrd ered By: Anita Willis on 07-01-2024 Lymphocytes Auto (Unsp spec) [#/Vol] 0.97 10*3/uL 0.83-4.51 [facility] Absolute neutrophil countOrd ered By: Anita Willis on 07-01-2024 Neutrophils (Bld) [#/Vol] 11.3 10*3/uL High 2.0-7.7 [facility] Anion gap in Serum or Plasma Ordered By: Anita Willis on 07-01-2024 Anion gap [Moles/Vol] 12 mmol/L 5-15 [facility] Automated lymphocyte count a s percentage of total leukocytesOrdered By: Anita Willis on 07-01-2024 Lymphocytes/100 WBC Auto (Unsp spec) 7.5 % Low 19- [facility] BUN/creatinine ratioOrdered By: Anita Willis on 07-01-2024 Urea nitrogen/Creatinine [Mass ratio] 14.9 mg/mg - [facility] Basophil percentageOrdered B y: Anita Willis on 07-01-2024 Basophils/100 WBC (Bld) 0.4 % 0-1 [facility] Beta HCG ( test) Ql Ordered By: Anita Willis on 07-01-2024 Serum Test, Qualitative Negative [facility] Bilirubin Test strip Ql (U)O rdered By: Anita Willis on 07-01-2024 Bilirubin Ql (U) Negative Negative [facility] Bilirubin, totalOrdered By: Anita Willis on 07-01-2024 Bilirubin [Mass/Vol] 0.66 mg/dL Normal 0.00-1.30 [facility] Comment on above: Performed By: #### L 500.4050, L700.6800, L100.0100, L501.2450 ####[facility] [address] [place], [address] CBC W/Diff, Automatedon 06-13 Absolute Lymph 0.97 X10 3/uL Normal 0.83-4.51 [facility] Comment on above: Performed By: #### L 500.4050, L700.6800, L100.0100, L501.2450 ####[facility] [address] [place], [address] Absolute Neut 11.3 X10 3/uL High 2.0-7.7 [facility] Comment on above: Performed By: #### L 500.4050, L700.6800, L100.0100, L501.2450 ####[facility] [address] [place], [address] Basophils/100 WBC (Bld) 0.4 % Normal 0-1 [facility] Comment on above: Performed By: #### L 500.4050, L700.6800, L100.0100, L501.2450 ####[facility] [address] [place], [address] Eosinophils/100 WBC (Bld) 0.9 % Normal 0-5 [facility] Comment on above: Performed By: #### L 500.4050, L700.6800, L100.0100, L501.2450 ####[facility] [address] [place], [address] Erythrocyte distribution width (RBC) [Ratio] 14.9 % High 11.6-14.6 [facility] Comment on above: Performed By: #### L 500.4050, L700.6800, L100.0100, L501.2450 ####[facility] [address] [place], [address] Hematocrit (Bld) [Volume fraction] 43.5 % Normal 37-47 [facility] Comment on above: Performed By: #### L 500.4050, L700.6800, L100.0100, L501.2450 ####[facility] [address] [place], [address] Hemoglobin (Bld) [Mass/Vol] 14.7 g/dL Normal 12.0-15.0 [facility] Comment on above: Performed By: #### L 500.4050, L700.6800, L100.0100, L501.2450 ####[facility] [address] [place], [address] IG% 0.400 Normal 0.0-0.9 [facility] Comment on above: Result Comment: IG% - Immature Granulocytes (promyelocytes, myelocytes andmetamyelocytes) > 1% indicates that a LEFT SHIFT is Present. Performed By: #### L 500.4050, L700.6800, L100.0100, L501.2450 ####[facility] [address] [place], [address] Lymphocytes/100 WBC (Bld) 7.5 % Low 19-41 [facility] Comment on above: Performed By: #### L 500.4050, L700.6800, L100.0100, L501.2450 ####[facility] [address] [place], [address] MCH (RBC) [Entitic mass] 32.7 pg High 27.0-32.0 [facility] Comment on above: Performed By: #### L 500.4050, L700.6800, L100.0100, L501.2450 ####[facility] [address] [place], [address] MCHC (RBC) [Mass/Vol] 33.8 g/dL Normal 32-36 [facility] Comment on above: Performed By: #### L 500.4050, L700.6800, L100.0100, L501.2450 ####[facility] [address] [place], [address] MCV (RBC) [Entitic vol] 96.7 fL Normal 81-99 [facility] Comment on above: Performed By: #### L 500.4050, L700.6800, L100.0100, L501.2450 ####[facility] [address] [place], [address] Monocytes/100 WBC (Bld) 3.1 % Normal 0-10 [facility] Comment on above: Performed By: #### L 500.4050, L700.6800, L100.0100, L501.2450 ####[facility] [address] [place], [address] Neutrophils/100 WBC (Bld) 87.7 % High 47-70 [facility] Comment on above: Performed By: #### L 500.4050, L700.6800, L100.0100, L501.2450 ####[facility] [address] [place], [address] Nucleated RBC (Bld) [#/Vol] 0 10*3/uL Normal 0-5 [facility] Comment on above: Performed By: #### L 500.4050, L700.6800, L100.0100, L501.2450 ####[facility] [address] [place], [address] Platelet mean volume (Bld) [Entitic vol] 10.7 fL Normal 6.2-12.0 [facility] Comment on above: Performed By: #### L 500.4050, L700.6800, L100.0100, L501.2450 ####[facility] [address] [place], [address] Platelets (Bld) [#/Vol] 239 10*3/uL Normal 150-450 [facility] Comment on above: Performed By: #### L 500.4050, L700.6800, L100.0100, L501.2450 ####[facility] [address] [place], [address] RBC (Bld) [#/Vol] 4.50 10*6/uL Normal 4.2-5.4 [facility] Comment on above: Performed By: #### L 500.4050, L700.6800, L100.0100, L501.2450 ####[facility] [address] [place], [address] RDW SD 53.1 fl High 35.1-43.9 [facility] Comment on above: Performed By: #### L 500.4050, L700.6800, L100.0100, L501.2450 ####[facility] [address] [place], [address] WBC (Bld) [#/Vol] 12.9 10*3/uL High 4.4-11.0 [facility] Comment on above: Performed By: #### L 500.4050, L700.6800, L100.0100, L501.2450 ####[facility] [address] [place], [address] Carbon dioxide, total [Moles /volume] in Central venous bloodOrdered By: Anita Willis on 07-01-2024 CO2 [Moles/Vol] 19.2 mmol/L Low 21.0-32.0 [facility] Comment on above: Performed By: #### L 500.4050, L700.6800, L100.0100, L501.2450 ####[facility] [address] [place], [address] Chloride assayOrdered By: Reyna Willis on 07-01-2024 Chloride [Moles/Vol] 109 mmol/L High 98-108 [facility] Comment on above: Performed By: #### L 500.4050, L700.6800, L100.0100, L501.2450 ####[facility] [address] [place], [address] Comprehensive Metabolic Prof ilon 07-01-2024 ALK PHOS 116 U/L High 35-104 [facility] Comment on above: Performed By: #### L 500.4050, L700.6800, L100.0100, L501.2450 ####[facility] [address] [place], [address] BUN/CRE 14.9 RATIO Normal 10-20 [facility] Comment on above: Performed By: #### L 500.4050, L700.6800, L100.0100, L501.2450 ####[facility] [address] [place], [address] ECRCL 59.61 ml/min Normal 50-250 [facility] Comment on above: Performed By: #### L 500.4050, L700.6800, L100.0100, L501.2450 ####[facility] [address] [place], [address] GAP 12 Normal 5-15 [facility] Comment on above: Performed By: #### L 500.4050, L700.6800, L100.0100, L501.2450 ####[facility] [address] [place], [address] T PROT 6.7 g/dL Normal 5.9-8.4 [facility] Comment on above: Performed By: #### L 500.4050, L700.6800, L100.0100, L501.2450 ####[facility] [address] [place], [address] Comprehensive Metabolic Prof ilOrdered By: Anita Willis on 07-01-2024 AST [Catalytic activity/Vol] 30 U/L Normal <=31 [facility] Comment on above: Performed By: #### L 500.4050, L700.6800, L100.0100, L501.2450 ####[facility] [address] [place], [address] Emergency Department Summary on 07-01-2024 Emergency Department Summary Normal [facility] Eosinophil percentageOrdered By: Anita Willis on 07-01-2024 Eosinophils/100 WBC (Bld) 0.9 % 0-5 [facility] Epithelial cells.squamous LM Ql (Urine sed)Ordered By: Anita Willis on 07-01-2024 Epithelial cells.squamous LM.HPF (Urine sed) [#/Area] 0 /[HPF] 5-10 [facility] Erythrocyte distribution wid th (RBC) [Ratio]Ordered By: Anita Willis on 07-01-2024 Erythrocyte distribution width (RBC) [Entitic vol] 53.1 fL High 35.1-43.9 [facility] Erythrocyte distribution wid th ratioOrdered By: Anita Willis on 07-01-2024 Erythrocyte distribution width (RBC) [Ratio] 14.9 % High 11.6-14.6 [facility] Erythrocyte distribution wid th standard deviationOrdered By: Anita Willis on 07-01-2024 Erythrocyte distribution width (RBC) [Ratio] 53.1 fl High 35.1-43.9 [facility] Estimation of creatinine monico aranceOrdered By: Anita Willis on 07-01-2024 Estimated Creatinine Clearance Calc 59.61 ml/min 50-250 [facility] GFR/1.73 sq M.predicted shweta g non-blacks MDRD (S/P/Bld) [Vol rate/Area]Ordered By: Anita Willis on 07-01-2024 Estimated GFR (MDRD) Non-Af Amer 68 >60 [facility] Comment on above: mL/min/1.73m2 CKD-EP I Creatinine Equation (2020) Glomerular filtration rate ( GFR) estimation/1.73 sq m using serum, plasma, or whole bOrdered By: Anita Willis on 07-01-2024 GFR/1.73 sq M.predicted among non-blacks MDRD (S/P/Bld) [Vol rate/Area] 68 mL/min/{1.73_m2} Normal >60 [facility] Comment on above: mL/min/1.73m2 CKD-EP I Creatinine Equation (2020) Result Comment: mL/m in/1.73m2 CKD-EPI Creatinine Equation (2020) Performed By: #### L 500.4050, L700.6800, L100.0100, L501.2450 ####[facility] [address] [place], [place], [id number] Glucose Ql (U)Ordered By: Reyna Willis on 07-01-2024 Urine Glucose (UA) Normal mg/dl Normal [facility] Hematocrit Auto (Bld) [Volum e fraction]Ordered By: Anita Willis on 07-01-2024 Hematocrit (Bld) [Volume fraction] 43.5 % 37-47 [facility] Hemoglobin measurementOrdere d By: Anita Willis on 07-01-2024 Hemoglobin (Bld) [Mass/Vol] 14.7 g/dL 12.0-15.0 [facility] Immature granulocytes/100 WB C Auto (Bld)Ordered By: Anita Willis on 07-01-2024 Immature granulocytes/100 WBC (Bld) 0.400 % 0.0-0.9 [facility] Comment on above: IG% - Immature Granu locytes (promyelocytes, myelocytes and metamyelocytes) > 1% indicates that a LEFT SHIFT is Present. Ketones Test strip Ql (U)Ord ered By: Anita Willis on 07-01-2024 Ketones Ql (U) Negative Negative [facility] Lipase measurementOrdered By : Anita Willis on 07-01-2024 Lipase [Catalytic activity/Vol] 35 U/L Normal 13-75 [facility] Comment on above: Please note:LIPASE [...] By: #### L 500.4050, L700.6800, L100.0100, L501.2450 ####[facility] [address] [place], [address] Lymphocytes Auto (Unsp spec) [#/Vol]Ordered By: Anita Willis on 07-01-2024 Lymphocytes (Bld) [#/Vol] 0.97 10*3/uL 0.83-4.51 [facility] Lymphocytes/100 WBC Auto (Un sp spec)Ordered By: Anita Willis on 07-01-2024 Lymphocytes/100 WBC (Bld) 7.5 % Low 19-41 [facility] MCV (mean corpuscular volume ) determinationOrdered By: Anita Willis on 07-01-2024 MCV (RBC) [Entitic vol] 96.7 fL 81-99 [facility] Mean corpuscular hemoglobin (MCH) determinationOrdered By: Anita Willis on 07-01-2024 MCH (RBC) [Entitic mass] 32.7 pg High 27.0-32.0 [facility] Mean corpuscular hemoglobin concentration (MCHC) determinationOrdered By: Anita Willis on 07-01-2024 MCHC (RBC) [Mass/Vol] 33.8 g/dL 32-36 [facility] Mean platelet volume determi nationOrdered By: Anita Willis on 07-01-2024 Platelet mean volume (Bld) [Entitic vol] 10.7 fL 6.2-12.0 [facility] Microscopic analysis of urin e for red blood cells (RBC)Ordered By: Anita Willis on 07-01-2024 Microscopic analysis of urine for red blood cells (RBC) 0-5 SEEN /hpf 0-5 [facility] Urine RBC 0-5 SEEN /hpf 0-5 [facility] Monocyte percentageOrdered B y: Anita Willis on 07-01-2024 Monocytes/100 WBC (Bld) 3.1 % 0-10 [facility] Mucus LM Ql (Urine sed)Order ed By: Anita Willis on 07-01-2024 Mucus Ql (Urine sed) 0 SEEN /hpf [facility] Neutrophil percentageOrdered By: Anita Willis on 07-01-2024 Neutrophils/100 WBC (Bld) 87.7 % High 47-70 [facility] Nitrite Test strip Ql (U)Ord ered By: Anita Willis on 07-01-2024 Nitrite Ql (U) Negative Negative [facility] No Panel InformationOrdered By: Anita Willis on 07-01-2024 30 U/L <32 [facility] Nucleated red blood cell per centageOrdered By: Anita Willis on 07-01-2024 Nucleated RBC/100 WBC (Bld) [Ratio] 0 % 0-5 [facility] Platelet countOrdered By: Reyna Willis on 07-01-2024 Platelets (Bld) [#/Vol] 239 10*3/uL 150-450 [facility] Potassium measurement (mass/ volume)Ordered By: Anita Willis on 07-01-2024 Potassium (Unsp spec) [Mass/Vol] 4.0 mmol/L 3.3-5.1 [facility] Potassium [Moles/Vol] 4.0 mmol/L Normal 3.3-5.1 [facility] Comment on above: Performed By: #### L 500.4050, L700.6800, L100.0100, L501.2450 ####[facility] [address] [place], [address] ,Serum,hCG Quali.on 07-01-2024 HCG, SERUM QUAL Negative Normal [facility] Comment on above: Performed By: #### L 500.4050, L700.6800, L100.0100, L501.2450 ####[facility] [address] [place], [place], [address] Protein Test strip Ql (U)Ord ered By: Anita Willis on 07-01-2024 Protein Ql (U) 30 mg/dl High Negative [facility] RBC Auto (Bld) [#/Vol]Ordere d By: Anita Willis on 07-01-2024 RBC (Bld) [#/Vol] 4.50 10*6/uL 4.2-5.4 [facility] Serum beta-hCG test, qualita tiveOrdered By: Anita Willis on 07-01-2024 Beta HCG ( test) Ql Negative [facility] Serum creatinine measurement (mass/volume)Ordered By: Anita Willis on 07-01-2024 Creatinine [Mass/Vol] 1.04 mg/dL Normal 0.70-1.20 [facility] Comment on above: Performed By: #### L 500.4050, L700.6800, L100.0100, L501.2450 ####[facility] [address] [place], [address] Serum globulin measurementOr dered By: Anita Willis on 07-01-2024 Globulin (S) [Mass/Vol] 2.5 g/dL Normal 2.2-4.2 [facility] Comment on above: Performed By: #### L 500.4050, L700.6800, L100.0100, L501.2450 ####[facility] [address] [place], [address] Serum glucose measurement (m ass/volume)Ordered By: Anita Willis on 07-01-2024 Glucose [Mass/Vol] 103 mg/dL High 70-99 [facility] Comment on above: Performed By: #### L 500.4050, L700.6800, L100.0100, L501.2450 ####[facility] [address] [place], [address] Serum or plasma alanine hair otransferase (ALT) measurementOrdered By: Anita Willis on 07-01-2024 ALT [Catalytic activity/Vol] 27 U/L Normal <=34 [facility] Comment on above: Performed By: #### L 500.4050, L700.6800, L100.0100, L501.2450 ####[facility] [address] [place], [address] Serum or plasma albumin leslie urement (mass/volume)Ordered By: Anita Willis on 07-01-2024 Albumin [Mass/Vol] 4.2 g/dL Normal 3.5-5.0 [facility] Comment on above: Performed By: #### L 500.4050, L700.6800, L100.0100, L501.2450 ####[facility] [address] [place], [address] Serum or plasma albumin/glob ulin mass ratioOrdered By: Anita Willis on 07-01-2024 Albumin/Globulin [Mass ratio] 1.7 {ratio} Normal 0.9-2.4 [facility] Comment on above: Performed By: #### L 500.4050, L700.6800, L100.0100, L501.2450 ####[facility] [address] [place], [address] Serum or plasma alkaline delfin sphatase measurementOrdered By: Anita Willis on 07-01-2024 ALP [Catalytic activity/Vol] 116 U/L High 35-104 [facility] Serum or plasma calcium leslie urement (mass/volume)Ordered By: Antia Willis on 07-01-2024 Calcium [Mass/Vol] 9.0 mg/dL Normal 7.6-11.0 [facility] Comment on above: Performed By: #### L 500.4050, L700.6800, L100.0100, L501.2450 ####[facility] [address] [place], [address] Serum or plasma urea nitroge n measurement (mass/volume)Ordered By: Anita Willis on 07-01-2024 Urea nitrogen [Mass/Vol] 16 mg/dL Normal 4-19 [facility] Comment on above: Performed By: #### L 500.4050, L700.6800, L100.0100, L501.2450 ####[facility] [address] [place], [address] Sodium levelOrdered By: Dakotah Willis on 07-01-2024 Sodium [Moles/Vol] 139 mmol/L Normal 133-145 [facility] Comment on above: Performed By: #### L 500.4050, L700.6800, L100.0100, L501.2450 ####[facility] [address] [place], [address] Squamous epithelial cells de tection in urine sediment by light microscopyOrdered By: Anita Willis on 07-01-2024 Epithelial cells.squamous LM Ql (Urine sed) 0-5 SEEN /hpf 5-10 [facility] Total proteinOrdered By: Florin Willis on 07-01-2024 Protein [Mass/Vol] 6.7 g/dL 5.9-8.4 [facility] Urinalysis, Completeon 07-01 BACTERIA 2+ /hpf Normal None Seen [facility] Comment on above: Order Comment: HARITHA CTOR TO SPECIFY Performed By: #### L 400.0001 ####[facility] [address] [place], [address] EPI,SQUAMOUS 0-5 SEEN Normal 5-10 [facility] Comment on above: Order Comment: HARITHA CTOR TO SPECIFY Performed By: #### L 400.0001 ####[facility] [address] [place], [address] RBC 0-5 SEEN Normal 0-5 [facility] Comment on above: Order Comment: HARITHA CTOR TO SPECIFY Performed By: #### L 400.0001 ####[facility] [address] [place], [address] Mucus Ql (Urine sed) 0 SEEN Normal [facility] Comment on above: Order Comment: HARITHA CTOR TO SPECIFY Performed By: #### L 400.0001 ####[facility] [address] [place], [address] WBC 0 SEEN Normal 0-5 [facility] Comment on above: Order Comment: HARITHA CTOR TO SPECIFY Performed By: #### L 400.0001 ####[facility] [address] [place], [address] Urine blood detectionOrdered By: Anita Willis on 07-01-2024 Urine Occult Blood 50 /ul High Negative [facility] Urine clarityOrdered By: Florin Willis on 07-01-2024 Clarity (U) Clear Clear [facility] Urine color determinationOrd ered By: Anita Willis on 07-01-2024 Color (U) Yellow Yellow [facility] Urine glucose detectionOrder ed By: Anita Willis on 07-01-2024 Glucose Ql (U) Normal mg/dl Normal [facility] Urine leukocyte esterase det ection by dipstickOrdered By: Anita Willis on 07-01-2024 Leukocyte esterase Test strip Ql (U) Negative Negative [facility] Urine pHOrdered By: Parag Willis on 07-01-2024 pH (U) 6.0 [pH] 5.0 - 8.0 [facility] Urine sediment bacteria coun t by microscopy (number/high power field)Ordered By: Anita Willis on 07-01-2024 Bacteria LM.HPF (Urine sed) [#/Area] 2 /[HPF] None Seen [facility] Urine specific gravity measu rementOrdered By: Anita Willis on 07-01-2024 Specific gravity (U) [Rel density] 1.010 1.002-1.03 0 [facility] Urine urobilinogen measureme ntOrdered By: Anita Willis on 07-01-2024 Urobilinogen Ql (U) Normal mg/dl Normal [facility] Urobilinogen Ql (U)Ordered B y: Anita Willis on 07-01-2024 Urine Urobilinogen Normal mg/dl Normal [facility] White blood cell (WBC) count Ordered By: Anita Willis on 07-01-2024 WBC (Bld) [#/Vol] 12.9 10*3/uL High 4.4-11.0 [facility] White blood cell countOrdere d By: Anita Willis on 07-01-2024 Urine WBC 0 SEEN /hpf 0-5 [facility] White blood cell count 0 SEEN /hpf 0-5 [facility] CBC panel Auto (Bld)on 05-21 Erythrocyte distribution width (RBC) [Ratio] 14.0 % Normal 11.5-15.0 [facility] Comment on above: Order Comment: Speci men Type: BLOOD SPECIMEN Ordering Facility: [facility] Address: [address] [place] [address] Performed By: #### 5 8410-2 #### [facility] CLIA [id number] [address] [place] [address] [place] Hematocrit (Bld) [Volume fraction] 49.4 % High 36.0-46.0 [facility] Comment on above: Order Comment: Speci men Type: BLOOD SPECIMEN Ordering Facility: [facility] Address: [address] [place] [address] Performed By: #### 5 8410-2 #### [facility] CLIA [id number] [address] OF [facility] Hemoglobin (Bld) [Mass/Vol] 16.5 g/dL High 11.5-15.5 [facility] Comment on above: Order Comment: Speci men Type: BLOOD SPECIMEN Ordering Facility: [facility] Address: [address] [place] [address] Performed By: #### 5 8410-2 #### [facility] CLIA [id number] [address] MCH (RBC) [Entitic mass] 32.0 pg Normal 26.0-34.0 [facility] Comment on above: Order Comment: Speci men Type: BLOOD SPECIMEN Ordering Facility: [facility] Address: [address] [place] [address] Performed By: #### 5 8410-2 #### [facility] CLIA [id number] [address] MCHC (RBC) [Mass/Vol] 33.4 g/dL Normal 30.5-36.0 [facility] Comment on above: Order Comment: Speci men Type: BLOOD SPECIMEN Ordering Facility: [facility] Address: [address] [place] [address] Performed By: #### 5 8410-2 #### [facility] CLIA [id number] [address] MCV (RBC) [Entitic vol] 95.7 fL Normal 80.0-100.0 [facility] Comment on above: Order Comment: Speci men Type: BLOOD SPECIMEN Ordering Facility: [facility] Address: [address] [place] [address] Performed By: #### 5 8410-2 #### [facility] CLIA [id number] [address] Nucleated RBC (Bld) [#/Vol] 10*3/uL Normal <0.01 [facility] Comment on above: Order Comment: Speci men Type: BLOOD SPECIMEN Ordering Facility: [facility] Address: [address] [place] [address] Performed By: #### 5 8410-2 #### [facility] CLIA [id number] [address] [place] Platelet mean volume (Bld) [Entitic vol] 10.0 fL Normal 9.0-12.7 [facility] Comment on above: Order Comment: Speci men Type: BLOOD SPECIMEN Ordering Facility: [facility] Address: [address] [place] [address] Performed By: #### 5 8410-2 #### [facility] CLIA [id number] [address] OF [place] Platelets (Bld) [#/Vol] 288 10*3/uL Normal 150-400 [facility] Comment on above: Order Comment: Speci men Type: BLOOD SPECIMEN Ordering Facility: [facility] Address: [address] [place] [address] Performed By: #### 5 8410-2 #### [facility] CLIA [id number] [address] [place] [address] [place] [facility] [place] RBC (Bld) [#/Vol] 5.16 10*6/uL Normal 3.90-5.20 [facility] Comment on above: Order Comment: Speci men Type: BLOOD SPECIMEN Ordering Facility: [facility] Address: [address] [place] [address] Performed By: #### 5 8410-2 #### [facility] CLIA [id number] [address] OF [place] WBC (Bld) [#/Vol] 12.02 10*3/uL High 3.70-11.00 [facility] Comment on above: Order Comment: Speci men Type: BLOOD SPECIMEN Ordering Facility: [facility] Address: [address] [place] [address] Performed By: #### 5 8410-2 #### [facility] CLIA [id number] [address] [place] CNCOon 05-21-2024 CNCO Letter Text Normal [facility] CNDSon 05-21-2024 CNDS HNO ID: [id number] Author: DEX WILKINSON MD Service: Family Practice [...] Dex Wilkinson MD Nurse Practitioner: Josie Ovalles APRN.[place] [employer] Consulting: Luis Miguel Vuong MD MY CONDITION [...] week Patient/Parents to call for appointment?: Yes eDx Wilkinson MD [phone] [facility] [address] PCP Requested Referral GENERAL: alert, no distress, [...] intact., Treatment Team: Nurse Practitioner: Josie Ovalles APRN.[place] [employer] FOLLOW-UP APPOINTMENTS ALREADY SCHEDULED WITH A [facility] PROVIDER: No future appointments. ALLERGIES Allergen Reactions Prozac [Fluoxetine * Other: See Comments suicidal ideations Ativan [Lorazepam] Vomiting Azithromycin Intolerance Reliance Anaphylaxis Reliance Anaphylaxis pickles Fish Anaphylaxis Levofloxacin In D5w [...] Your Medications These medications were sent to [id number] - [place] [address] [address] [phone] [address] [facility] [address] cephALEXin 500 mg capsule oxyCODONE IR 5 mg immediate release tablet Additional Information Additional Health Information I Need to Know After I Leave the Hospital No additional instructions. The patient's risk for 30-day readmission is determined using the following contributing factors: Predictive Model Detai (more content not included)... Normal [facility] Comprehensive metabolic 2000 panelon 05-21-2024 Albumin [Mass/Vol] 4.0 g/dL Normal 3.9-4.9 [facility] Comment on above: Order Comment: Speci men Type: BLOOD SPECIMENOrdering Facility: [facility] Address: [address] [place] [address] Performed By: #### 2 4323-8 ####[facility] [id number] [address] ALP [Catalytic activity/Vol] 223 U/L High 34-123 [facility] Comment on above: Order Comment: Speci men Type: BLOOD SPECIMENOrdering Facility: [facility] Address: [address] [place] [address] Performed By: #### 2 4323-8 ####[facility] [id number] [address] STATES [facility] ALT [Catalytic activity/Vol] 113 U/L High 7-38 [facility] Comment on above: Order Comment: Speci men Type: BLOOD SPECIMENOrdering Facility: [facility] Address: [address] [place] [address] Performed By: #### 2 4323-8 ####[facility] [id number] [place] [address] [place] Anion gap [Moles/Vol] 17 mmol/L High 8-15 [facility] Comment on above: Order Comment: Speci men Type: BLOOD SPECIMENOrdering Facility: [facility] Address: [address] [place] [address] Performed By: #### 2 4323-8 ####[facility] [id number] [place] [address] [place] AST [Catalytic activity/Vol] Normal [facility] Comment on above: Order Comment: Speci men Type: BLOOD SPECIMENOrdering Facility: [facility] Address: [address] [place] [address] Result Comment: Unab le to assay due to interference from hemolysis. Suggest reorder as clinically indicated. Performed By: #### 2 4323-8 ####[facility] [id number] [place] [address] [place] Bilirubin [Mass/Vol] 0.4 mg/dL Normal 0.2-1.3 [facility] Comment on above: Order Comment: Speci men Type: BLOOD SPECIMENOrdering Facility: [facility] Address: [address] [place] [address] Performed By: #### 2 4323-8 ####[facility] [id number] [address] [place] Calcium [Mass/Vol] 9.8 mg/dL Normal 8.5-10.2 [facility] Comment on above: Order Comment: Speci men Type: BLOOD SPECIMENOrdering Facility: [facility] Address: [address] [place] [address] Performed By: #### 2 4323-8 ####[facility] [id number] [place] [address] [place] Chloride [Moles/Vol] 95 mmol/L Low 98-107 [facility] Comment on above: Order Comment: Speci men Type: BLOOD SPECIMENOrdering Facility: [facility] Address: [address] [place] [address] Performed By: #### 2 4323-8 ####[facility] [id number] [place] [address] [place] CO2 [Moles/Vol] 22 mmol/L Normal 22-30 [facility] Comment on above: Order Comment: Speci men Type: BLOOD SPECIMENOrdering Facility: [facility] Address: [address] [place] [address] Performed By: #### 2 4323-8 ####[facility] [id number] [place] [address] [place] Creatinine [Mass/Vol] 0.94 mg/dL Normal 0.58-0.96 [facility] Comment on above: Order Comment: David sol Type: BLOOD SPECIMENOrdering Facility: [facility] Address: [address] [place] [address] Performed By: #### 2 4323-8 ####[facility] [id number] [place] [id number] [facility] Creatinine and Glomerular filtration rate.predicted panel (S/P/Bld) 77 mL/min/1.73m??? Normal >=60 [facility] Comment on above: Order Comment: David sol Type: BLOOD SPECIMENOrdering Facility: [facility] Address: [address] [place] [address] Result Comment: Vidal mated Glomerular Filtration Rate [...] Performed By: #### 2 4323-8 ####[facility] [id number] [place] [id number] [place] [facility] Glucose [Mass/Vol] 82 mg/dL Normal 74-99 [facility] Comment on above: Order Comment: Kianatian ponce Type: BLOOD SPECIMENOrdering Facility: [facility] Address: [address] [place] [address] Result Comment: [place] Diabetes Association (ADA) provides guidance for cutoff [...] Standards of Medical Care in Diabetes 2016, [place] Diabetes Association. Diabetes Care. 2016.39(Suppl 1). Performed By: #### 2 4323-8 ####[facility] LABORATORYCLIA [id number] [place] [address] [place] Potassium [Moles/Vol] 4.7 mmol/L Normal 3.7-5.1 [facility] Comment on above: Order Comment: Speci men Type: BLOOD SPECIMENOrdering Facility: [facility] Address: [address] [place] [address] Performed By: #### 2 4323-8 ####[facility] LABORATORYCLIA [id number] [place] [address] [place] Protein [Mass/Vol] 7.0 g/dL Normal 6.3-8.0 [facility] Comment on above: Order Comment: Speci men Type: BLOOD SPECIMENOrdering Facility: [facility] Address: [address] [place] [address] Performed By: #### 2 4323-8 ####[facility] LABORATORYCLIA [id number] [place] [address] [place] Sodium [Moles/Vol] 134 mmol/L Low 136-144 [facility] Comment on above: Order Comment: Speci men Type: BLOOD SPECIMENOrdering Facility: [facility] Address: [address] [place] [address] Performed By: #### 2 4323-8 ####[facility] LABORATORYCLIA [id number] [place] [address] [place] Urea nitrogen [Mass/Vol] 22 mg/dL High 7-21 [facility] Comment on above: Order Comment: Speci men Type: BLOOD SPECIMENOrdering Facility: [facility] Address: [address] [place] [address] Performed By: #### 2 4323-8 ####[facility]ORATORYCLIA [id number] [place] [address] [place] ALLIED HEALTHon 05-20-2024 ALLIED HEALTH HNO ID: [id number] Author: BONITA GROSS RDMS Service: ? Author Type: Morning Caregiver Type: Allied Health Filed: 05/20/2024 14:34 Note [...] PATIENT PRESENTS WITH AN IMPLANTABLE OR ATTACHED BIOCHEMISTRY TEACHER: No RADIOLOGY DEPARTMENT: Ultrasound PERIPHERAL IV DATA: Not applicable SIGNED BY: Bonita Gross RDMS May 20, 2024 2:34 PM Normal [facility] CBC panel Auto (Bld)on 05-20 Erythrocyte distribution width (RBC) [Ratio] 13.8 % Normal 11.5-15.0 [facility] Comment on above: Order Comment: David ponce Type: BLOOD SPECIMENOrdering Facility: [facility] Address: [address] [place] [address] Performed By: #### 5 8410-2 ####[facility] LABORATORYCLIA [id number] [place] [address] [place] Hematocrit (Bld) [Volume fraction] 49.3 % High 36.0-46.0 [facility] Comment on above: Order Comment: David ponce Type: BLOOD SPECIMENOrdering Facility: [facility] Address: [address] [place] [address] Performed By: #### 5 8410-2 ####[facility] LABORATORYCLIA [id number] [place] [id number] [place] Hemoglobin (Bld) [Mass/Vol] 16.3 g/dL High 11.5-15.5 [facility] Comment on above: Order Comment: David ponce Type: BLOOD SPECIMENOrdering Facility: [facility] Address: [address] [place] [address] Performed By: #### 5 8410-2 ####[facility] LABORATORYCLIA [id number] [place] [address] [place] MCH (RBC) [Entitic mass] 31.3 pg Normal 26.0-34.0 [facility] Comment on above: Order Comment: Speci men Type: BLOOD SPECIMENOrdering Facility: [facility] Address: [address] [place] [address] Performed By: #### 5 8410-2 ####[facility] LABORATORYCLIA [id number] [address] MCHC (RBC) [Mass/Vol] 33.1 g/dL Normal 30.5-36.0 [facility] Comment on above: Order Comment: Speci men Type: BLOOD SPECIMENOrdering Facility: [facility] Address: [address] [place] [address] Performed By: #### 5 8410-2 ####[facility] LABORATORYCLIA [id number] [address] MCV (RBC) [Entitic vol] 94.8 fL Normal 80.0-100.0 [facility] Comment on above: Order Comment: Speci men Type: BLOOD SPECIMENOrdering Facility: [facility] Address: [address] [place] [address] Performed By: #### 5 8410-2 ####[facility] LABORATORYCLIA [id number] [address] Nucleated RBC (Bld) [#/Vol] 10*3/uL Normal <0.01 [facility] Comment on above: Order Comment: Speci men Type: BLOOD SPECIMENOrdering Facility: [facility] Address: [address] [place] [address] Performed By: #### 5 8410-2 ####[facility] LABORATORYCLIA [id number] [address] Platelet mean volume (Bld) [Entitic vol] 9.8 fL Normal 9.0-12.7 [facility] Comment on above: Order Comment: Speci men Type: BLOOD SPECIMENOrdering Facility: [facility] Address: [address] [place] [address] Performed By: #### 5 8410-2 ####[facility] LABORATORYCLIA [id number] [address] [place] Platelets (Bld) [#/Vol] 326 10*3/uL Normal 150-400 [facility] Comment on above: Order Comment: Speci men Type: BLOOD SPECIMENOrdering Facility: [facility] Address: [address] [place] [address] Performed By: #### 5 8410-2 ####[facility] LABORATORYCLIA [id number] [place] [address] [place] RBC (Bld) [#/Vol] 5.20 10*6/uL Normal 3.90-5.20 [facility] Comment on above: Order Comment: Speci men Type: BLOOD SPECIMENOrdering Facility: [facility] Address: [address] [place] [address] Performed By: #### 5 8410-2 ####[facility] LABORATORYCLIA [id number] [address] [place] WBC (Bld) [#/Vol] 21.90 10*3/uL High 3.70-11.00 [facility] Comment on above: Order Comment: Speci men Type: BLOOD SPECIMENOrdering Facility: [facility] Address: [address] [place] [address] Performed By: #### 5 8410-2 ####[facility] LABORATORYCLIA [id number] [address] CONSULT PROGon 05-20-2024 CONSULT PROG HNO ID: [id number] Author: TATI VANG RPh Service: Pharmacy Author [...] have any questions, please contact pharmacy at [phone]. Age: [age] year old Allergies: ALLERGIES Allergen Reactions Prozac [Fluoxetine * Other: See Comments suicidal ideations Ativan [Lorazepam] Vomiting Azithromycin Intolerance Reliance Anaphylaxis Reliance Anaphylaxis pickles Fish Anaphylaxis Levofloxacin In D5w [...] Date/Time Value 05/17/2024 1240 14.7 Tati Vang [facility] Normal [facility] Comprehensive metabolic 2000 panelon 05-20-2024 Albumin [Mass/Vol] 4.2 g/dL Normal 3.9-4.9 [facility] Comment on above: Order Comment: Speci men Type: BLOOD SPECIMENOrdering Facility: [facility] Address: [address] [place] [address] Performed By: #### 2 4323-8, 3040-3 ####[facility] LABORATORYCLIA [id number] [place] [address] [place] ALP [Catalytic activity/Vol] 228 U/L High 34-123 [facility] Comment on above: Order Comment: Speci men Type: BLOOD SPECIMENOrdering Facility: [facility] Address: [address] [place] [address] Performed By: #### 2 4323-8, 3040-3 ####[facility] LABORATORYCLIA [id number] [place] [address] [place] ALT [Catalytic activity/Vol] 50 U/L High 7-38 [facility] Comment on above: Order Comment: Speci men Type: BLOOD SPECIMENOrdering Facility: [facility] Address: [address] [place] [address] Performed By: #### 2 4323-8, 3040-3 ####[facility] LABORATORYCLIA [id number] [place] [address] [place] Anion gap [Moles/Vol] 14 mmol/L Normal 8-15 [facility] Comment on above: Order Comment: Speci men Type: BLOOD SPECIMENOrdering Facility: [facility] Address: [address] [place] [address] Performed By: #### 2 4323-8, 3040-3 ####[facility] LABORATORYCLIA [id number] [place] [address] [place] AST [Catalytic activity/Vol] 34 U/L Normal 13-35 [facility] Comment on above: Order Comment: Speci men Type: BLOOD SPECIMENOrdering Facility: [facility] Address: [address] [place] [address] Performed By: #### 2 4323-8, 3040-3 ####[facility] LABORATORYCLIA [id number] [place] [address] [place] Bilirubin [Mass/Vol] 0.4 mg/dL Normal 0.2-1.3 [facility] Comment on above: Order Comment: Speci men Type: BLOOD SPECIMENOrdering Facility: [facility] Address: [address] [place] [address] Performed By: #### 2 4323-8, 0-3 ####[facility] LABORATORYCLIA [id number] [place] [address] [place] Calcium [Mass/Vol] 10.3 mg/dL High 8.5-10.2 [facility] Comment on above: Order Comment: Speci men Type: BLOOD SPECIMENOrdering Facility: [facility] Address: [facility] [place] [address] Performed By: #### 2 4323-8, 3039-3 ####[facility] LABORATORYCLIA [id number] [place] [address] [place] Chloride [Moles/Vol] 94 mmol/L Low 98-107 [facility] Comment on above: Order Comment: Speci men Type: BLOOD SPECIMENOrdering Facility: [facility] Address: [facility] [place] [address] Performed By: #### 2 4323-8, 0-3 ####[facility] LABORATORYCLIA [id number] [place] [address] [place] CO2 [Moles/Vol] 25 mmol/L Normal 22-30 [facility] Comment on above: Order Comment: Speci men Type: BLOOD SPECIMENOrdering Facility: [facility] Address: [facility] [place] [address] Performed By: #### 2 4323-8, 3040-3 ####[facility] LABORATORYCLIA [id number] [place] [address] [place] Creatinine [Mass/Vol] 0.90 mg/dL Normal 0.58-0.96 [facility] Comment on above: Order Comment: Kianatian ponce Type: BLOOD SPECIMENOrdering Facility: [facility] Address: [address] [place] [address] Performed By: #### 2 4323-8, 3039-3 ####[facility] LABORATORYCLIA [id number] [place] [id number] [place] Creatinine and Glomerular filtration rate.predicted panel (S/P/Bld) 81 mL/min/1.73m??? Normal >=60 [facility] Comment on above: Order Comment: David sol Type: BLOOD SPECIMENOrdering Facility: [facility] Address: [address] [place] [address] Result Comment: Vidal mated Glomerular Filtration Rate [...] actual GFR. Performed By: #### 2 4323-8, 3039-3 ####[facility] LABORATORYCLIA [id number] [place] [id number] [place] Glucose [Mass/Vol] 98 mg/dL Normal 74-99 [facility] Comment on above: Order Comment: Kianatian ponce Type: BLOOD SPECIMENOrdering Facility: [facility] Address: [address] [place] [address] Result Comment: [place] Diabetes Association (ADA) provides guidance for cutoff [...] Standards of Medical Care in Diabetes 2016, [place] Diabetes Association. Diabetes Care. 2016.39(Suppl 1). Performed By: #### 2 4323-8, 3040-3 ####[facility] LABORATORYCLIA [id number] [place] [address] [place] Potassium [Moles/Vol] 4.4 mmol/L Normal 3.7-5.1 [facility] Comment on above: Order Comment: Speci men Type: BLOOD SPECIMENOrdering Facility: [facility] Address: [address] [place] [address] Performed By: #### 2 4323-8, 3040-3 ####[facility] LABORATORYCLIA [id number] [place] [address] [place] Protein [Mass/Vol] 7.4 g/dL Normal 6.3-8.0 [facility] Comment on above: Order Comment: Speci men Type: BLOOD SPECIMENOrdering Facility: [facility] Address: [address] [place] [address] Performed By: #### 2 4323-8, 3040-3 ####[facility] LABORATORYCLIA [id number] [place] [address] [place] Sodium [Moles/Vol] 133 mmol/L Low 136-144 [facility] Comment on above: Order Comment: Speci men Type: BLOOD SPECIMENOrdering Facility: [facility] Address: [address] [place] [address] Performed By: #### 2 4323-8, 3040-3 ####[facility] LABORATORYCLIA [id number] [place] [address] [place] Urea nitrogen [Mass/Vol] 18 mg/dL Normal 7-21 [facility] Comment on above: Order Comment: Speci men Type: BLOOD SPECIMENOrdering Facility: [facility] Address: [address] [place] [address] Performed By: #### 2 4323-8, 3040-3 ####[facility] LABORATORYCLIA [id number] [place] [address] [place] Lipase SerPl-cCncon 05-21-19 25 Lipase [Catalytic activity/Vol] 22 U/L Normal 16-61 [facility] Comment on above: Order Comment: Speci men Type: BLOOD SPECIMENOrdering Facility: [facility] Address: [facility] [place] [address] Performed By: #### 2 4323-8, 3040-3 ####[facility] LABORATORYCLIA [id number] [place] [address] [place] US ABD RIGHT [...] prominence. This is sometimes seen after cholecystectomy. Tap And Die Maker Technician: KIM Transcribe Date/Time: May 20 2024 2:35P Dictated by : KASIE GREGORY MD This examination was interpreted and the report reviewed and electronically signed by: KASIE GREGORY MD on May 20 2024 2:36PM EST [id number] Normal [facility] ALLIED HEALTH 05-19-2024 ALLIED HEALTH HNO ID: [id number] Author: ABELARDO LEES CT Service: Radiology Author [...] PATIENT PRESENTS WITH AN IMPLANTABLE OR ATTACHED BIOCHEMISTRY TEACHER: No RADIOLOGY DEPARTMENT: General X-ray: Exam(s) Completed: Chest X-Ray PERIPHERAL IV DATA: Not applicable SIGNED BY: MIRACLE Gomez May 19, 2024 9:56 AM Normal [facility] CBC panel Auto (Bld)on 05-19 Erythrocyte distribution width (RBC) [Ratio] 14.2 % Normal 11.5-15.0 [facility] Comment on above: Order Comment: David ponce Type: BLOOD SPECIMEN [facility] Address: [address] [place] [address] Performed By: #### 5 8410-2 #### [facility] CLIA [id number] [address] [place] Hematocrit (Bld) [Volume fraction] 52.0 % High 36.0-46.0 [facility] Comment on above: Order Comment: David ponce Type: BLOOD SPECIMEN [facility] Address: [address] [place] [address] Performed By: #### 5 8410-2 #### [facility] CLIA [id number] [address] [place] [address] [place] Hemoglobin (Bld) [Mass/Vol] 16.6 g/dL High 11.5-15.5 [facility] Comment on above: Order Comment: Kianai sol Type: BLOOD SPECIMEN [facility] Address: [address] [place] [address] Performed By: #### 5 8410-2 #### [facility] CLIA [id number] [address] [place] MCH (RBC) [Entitic mass] 31.3 pg Normal 26.0-34.0 [facility] Comment on above: Order Comment: David ponce Type: BLOOD SPECIMEN [facility] Address: [address] [place] [address] Performed By: #### 5 8410-2 #### [facility] CLIA [id number] [address] MCHC (RBC) [Mass/Vol] 31.9 g/dL Normal 30.5-36.0 [facility] Comment on above: Order Comment: Speci men Type: BLOOD SPECIMEN [facility] Address: [address] [place] [address] Performed By: #### 5 8410-2 #### [facility] CLIA [id number] [address] MCV (RBC) [Entitic vol] 97.9 fL Normal 80.0-100.0 M [facility] Comment on above: Order Comment: Speci men Type: BLOOD SPECIMEN [facility] Address: [address] [place] [address] Performed By: #### 5 8410-2 #### [facility] CLIA [id number] [address] Nucleated RBC (Bld) [#/Vol] 10*3/uL Normal <0.01 [facility] Comment on above: Order Comment: Speci men Type: BLOOD SPECIMEN [facility] Address: [address] [place] [address] Performed By: #### 5 8410-2 #### [facility] CLIA [id number] [address] Platelet mean volume (Bld) [Entitic vol] 10.3 fL Normal 9.0-12.7 [facility] Comment on above: Order Comment: Speci men Type: BLOOD SPECIMEN [facility] Address: [address] [place] [address] Performed By: #### 5 8410-2 #### [facility] CLIA [id number] [address] [place] Platelets (Bld) [#/Vol] 346 10*3/uL Normal 150-400 [facility] Comment on above: Order Comment: Speci men Type: BLOOD SPECIMEN [facility] Address: [address] [place] [address] Performed By: #### 5 8410-2 #### [facility] CLIA [id number] [address] [place] [address] [place] RBC (Bld) [#/Vol] 5.31 10*6/uL High 3.90-5.20 [facility] Comment on above: Order Comment: David ponce Type: BLOOD SPECIMEN [facility] Address: [address] [place] [address] Performed By: #### 5 8410-2 #### [facility] CLIA [id number] [address] [place] WBC (Bld) [#/Vol] 10.65 10*3/uL Normal 3.70-11.00 [facility] Comment on above: Order Comment: David ponce Type: BLOOD SPECIMEN [facility] Address: [address] [place] [address] Performed By: #### 5 8410-2 #### [facility] CLIA [id number] [address] CONSULTon 05-19-2024 CONSULT HNO ID: [id number] Author: LUIS MIGUEL VUONG MD Service: Cardiovascular [...] PERMANENT TRANSVENOUS PACEMAKER INSERTION 2006 ICD implant, [facility] ANESTHESIA TUBAL LIGATION/TRANSECTION APPENDECTOMY 05/05/2014 , lap [...] 40 mg (more content not included)... Normal [facility] Comprehensive metabolic 2000 panelon 05-19-2024 Albumin [Mass/Vol] 4.5 g/dL Normal 3.9-4.9 [facility] Comment on above: Order Comment: Speci men Type: BLOOD SPECIMEN [facility] Address: [address] [place], [place] [address] Performed By: #### 5 8410-2 #### [facility] CLIA [id number] [address] [place] ALP [Catalytic activity/Vol] 277 U/L High 34-123 [facility] Comment on above: Order Comment: Speci men Type: BLOOD SPECIMEN [facility] Address: [address] [place] [address] Performed By: #### 5 8410-2 #### [facility] CLIA [id number] [address] [place] ALT [Catalytic activity/Vol] 63 U/L High 7-38 [facility] Comment on above: Order Comment: Speci men Type: BLOOD SPECIMEN [facility] Address: [address] [place] [address] Performed By: #### 5 8410-2 #### [facility] CLIA [id number] [address] Anion gap [Moles/Vol] 11 mmol/L Normal 8-15 [facility] Comment on above: Order Comment: Speci men Type: BLOOD SPECIMEN [facility] Address: [address] [place] [address] Performed By: #### 5 8410-2 #### [facility] CLIA [id number] [address] OF [facility] AST [Catalytic activity/Vol] 59 U/L High 13-35 [facility] Comment on above: Order Comment: Speci men Type: BLOOD SPECIMEN [facility] Address: [address] [place] [address] Performed By: #### 5 8410-2 #### [facility] CLIA [id number] [address] Bilirubin [Mass/Vol] 0.5 mg/dL Normal 0.2-1.3 [facility] Comment on above: Order Comment: Speci men Type: BLOOD SPECIMEN [facility] Address: [address] [place] [address] Performed By: #### 5 8410-2 #### [facility] CLIA [id number] [address] [place] [address] [place] Calcium [Mass/Vol] 10.1 mg/dL Normal 8.5-10.2 [facility] Comment on above: Order Comment: Speci men Type: BLOOD SPECIMEN [facility] Address: [address] [place] [address] Performed By: #### 5 8410-2 #### [facility] CLIA [id number] [address] [place] [address] [place] Chloride [Moles/Vol] 96 mmol/L Low 98-107 [facility] Comment on above: Order Comment: Speci men Type: BLOOD SPECIMEN [facility] Address: [address] [place] [address] Performed By: #### 5 8410-2 #### [facility] CLIA [id number] [address] [place] [address] [place] CO2 [Moles/Vol] 30 mmol/L Normal 22-30 [facility] Comment on above: Order Comment: Speci men Type: BLOOD SPECIMEN [facility] Address: [address] [place] [address] Performed By: #### 5 8410-2 #### [facility] CLIA [id number] [address] [place] [address] [place] Creatinine [Mass/Vol] 1.04 mg/dL High 0.58-0.96 [facility] Comment on above: Order Comment: Speci men Type: BLOOD SPECIMEN [facility] Address: [address] [place] [address] Performed By: #### 5 8410-2 #### [facility] CLIA [id number] [address] [place] [address] [place] Creatinine and Glomerular filtration rate.predicted panel (S/P/Bld) 68 mL/min/1.73m??? Normal >=60 [facility] Comment on above: Order Comment: Speci men Type: BLOOD SPECIMEN [facility] Address: [address] [place] [address] Result Comment: Vidal mated Glomerular Filtration Rate [...] GFR. Performed By: #### 5 8410-2 #### [facility] CLIA [id number] [address] [place] [address] [place] Glucose [Mass/Vol] 79 mg/dL Normal 74-99 [facility] Comment on above: Order Comment: David ponce Type: BLOOD SPECIMEN [facility] Address: [address] [place] [address] Result Comment: The [place] Diabetes Association (ADA) provides guidance for cutoff [...] Standards of Medical Care in Diabetes 2016, [place] Diabetes Association. Diabetes Care. 2016.39(Suppl 1). Performed By: #### 5 8410-2 #### [facility] CLIA [id number] [address] [place] Potassium [Moles/Vol] 4.1 mmol/L Normal 3.7-5.1 [facility] Comment on above: Order Comment: David ponce Type: BLOOD SPECIMEN [facility] Address: [address] [place] [address] Performed By: #### 5 8410-2 #### [facility] CLIA [id number] [address] [place] [address] [place] Protein [Mass/Vol] 8.0 g/dL Normal 6.3-8.0 [facility] Comment on above: Order Comment: David ponce Type: BLOOD SPECIMEN [facility] Address: [address] [place] [id number] Performed By: #### 5 8410-2 #### [facility] CLIA [id number] [address] Sodium [Moles/Vol] 137 mmol/L Normal 136-144 [facility] Comment on above: Order Comment: Speci men Type: BLOOD SPECIMEN [facility] Address: [address] [place] [address] Performed By: #### 5 8410-2 #### [facility] CLIA [id number] [address] Urea nitrogen [Mass/Vol] 20 mg/dL Normal 7-21 [facility] Comment on above: Order Comment: Speci men Type: BLOOD SPECIMEN [facility] Address: [address] [place] [address] Performed By: #### 5 8410-2 #### [facility] CLIA [id number] [address] NURSING PROGon 05-19-2024 NURSING PROG HNO ID: [id number] Author: CYNTHIA CADE RN Service: ? Author Type: Registered Nurse Type: Nursing Progress Note Filed: 05/19/2024 05:09 Note Text: Other: 0508 refused new IV start ,even though her IV sluggish. Patient educated about keeping old IV in . Doesn't want it removed at this time. Normal [facility] XR CHEST 2V FRONTAL/LATon XR CHEST 2V [...] tissues: Unremarkable. IMPRESSION: No acute radiographic abnormality. Tap And Die Maker Technician: KIM Transcribe Date/Time: May 19 2024 10:00A Dictated by : PATRICIA MCCARTNEY MD This examination was interpreted and the report reviewed and electronically signed by: PATRICIA MCCARTNEY MD on May 19 2024 10:03AM EST [id number] Normal [facility] CBC panel Auto (Bld)on 05-18 Erythrocyte distribution width (RBC) [Ratio] 14.2 % Normal 11.5-15.0 [facility] Comment on above: Order Comment: Speci men Type: BLOOD SPECIMENOrdering Facility: [facility] Address: [address] [place] [address] Performed By: #### 5 8410-2 ####[facility]ORATORYCLIA [id number] [address] [place] Hematocrit (Bld) [Volume fraction] 45.5 % Normal 36.0-46.0 [facility] Comment on above: Order Comment: Speci men Type: BLOOD SPECIMENOrdering Facility: [facility] Address: [address] [place] [address] Performed By: #### 5 8410-2 ####[facility]ORATORYCLIA [id number] [address] [place] Hemoglobin (Bld) [Mass/Vol] 15.3 g/dL Normal 11.5-15.5 [facility] Comment on above: Order Comment: Speci men Type: BLOOD SPECIMENOrdering Facility: [facility] Address: [address] [place] [address] Performed By: #### 5 8410-2 ####[facility]ORATORYCLIA [id number] [address] MCH (RBC) [Entitic mass] 32.0 pg Normal 26.0-34.0 [facility] Comment on above: Order Comment: Speci men Type: BLOOD SPECIMENOrdering Facility: [facility] Address: [address] [place] [address] Performed By: #### 5 8410-2 ####[facility] LABORATORYCLIA [id number] [address] [place] MCHC (RBC) [Mass/Vol] 33.6 g/dL Normal 30.5-36.0 [facility] Comment on above: Order Comment: Speci men Type: BLOOD SPECIMENOrdering Facility: [facility] Address: [address] [place] [address] Performed By: #### 5 8410-2 ####[facility] LABORATORYCLIA [id number] [place] [address] [place] MCV (RBC) [Entitic vol] 95.2 fL Normal 80.0-100.0 M [facility] Comment on above: Order Comment: Speci men Type: BLOOD SPECIMENOrdering Facility: [facility] Address: [address] [place] [address] Performed By: #### 5 8410-2 ####[facility] LABORATORYCLIA [id number] [address] [place] Nucleated RBC (Bld) [#/Vol] 10*3/uL Normal <0.01 [facility] Comment on above: Order Comment: Speci men Type: BLOOD SPECIMENOrdering Facility: [facility] Address: [address] [place] [address] Performed By: #### 5 8410-2 ####[facility] LABORATORYCLIA [id number] [address] [place] Platelet mean volume (Bld) [Entitic vol] 10.7 fL Normal 9.0-12.7 [facility] Comment on above: Order Comment: Speci men Type: BLOOD SPECIMENOrdering Facility: [facility] Address: [address] [place] [address] Performed By: #### 5 8410-2 ####[facility] LABORATORYCLIA [id number] [address] [place] Platelets (Bld) [#/Vol] 293 10*3/uL Normal 150-400 [facility] Comment on above: Order Comment: Speci men Type: BLOOD SPECIMENOrdering Facility: [facility] Address: [address] [place] [address] Performed By: #### 5 8410-2 ####[facility] LABORATORYCLIA [id number] [address] RBC (Bld) [#/Vol] 4.78 10*6/uL Normal 3.90-5.20 [facility] Comment on above: Order Comment: Speci men Type: BLOOD SPECIMENOrdering Facility: [facility] Address: [address] [place] [address] Performed By: #### 5 8410-2 ####[facility] LABORATORYCLIA [id number] [address] WBC (Bld) [#/Vol] 9.76 10*3/uL Normal 3.70-11.00 [facility] Comment on above: Order Comment: Speci men Type: BLOOD SPECIMENOrdering Facility: [facility] Address: [address] [place] [address] Performed By: #### 5 8410-2 ####[facility]ORATORYCLIA [id number] [address] Comprehensive metabolic 2000 panelon 05-18-2024 Albumin [Mass/Vol] 3.9 g/dL Normal 3.9-4.9 [facility] Comment on above: Order Comment: Speci men Type: BLOOD SPECIMENOrdering Facility: [facility] Address: [address] [place] [address] Performed By: #### 2 4323-8 ####[facility] LABORATORYCLIA [id number] [address] ALP [Catalytic activity/Vol] 249 U/L High 34-123 [facility] Comment on above: Order Comment: Speci men Type: BLOOD SPECIMENOrdering Facility: [facility] Address: [address] [place] [address] Performed By: #### 2 4323-8 ####[facility] LABORATORYCLIA [id number] [address] ALT [Catalytic activity/Vol] 60 U/L High 7-38 [facility] Comment on above: Order Comment: Speci men Type: BLOOD SPECIMENOrdering Facility: [facility] Address: [address] [place] [address] [place] [address] Performed By: #### 2 4323-8 ####[facility] LABORATORYCLIA [id number] [place] [address] [place] Anion gap [Moles/Vol] 12 mmol/L Normal 8-15 [facility] Comment on above: Order Comment: Speci men Type: BLOOD SPECIMENOrdering Facility: [facility] Address: [address] [place] [address] Performed By: #### 2 4323-8 ####[facility] LABORATORYCLIA [id number] [place] [address] [place] AST [Catalytic activity/Vol] 41 U/L High 13-35 [facility] Comment on above: Order Comment: Speci men Type: BLOOD SPECIMENOrdering Facility: [facility] Address: [address] [place] [address] Performed By: #### 2 4323-8 ####[facility] LABORATORYCLIA [id number] [place] [address] [place] Bilirubin [Mass/Vol] 0.5 mg/dL Normal 0.2-1.3 [facility] Comment on above: Order Comment: Speci men Type: BLOOD SPECIMENOrdering Facility: [facility] Address: [address] [place] [address] Performed By: #### 2 4323-8 ####[facility] LABORATORYCLIA [id number] [place] [address] [place] Calcium [Mass/Vol] 9.4 mg/dL Normal 8.5-10.2 [facility] Comment on above: Order Comment: Speci men Type: BLOOD SPECIMENOrdering Facility: [facility] Address: [address] [place] [address] Performed By: #### 2 4323-8 ####[facility] LABORATORYCLIA [id number] [place] [address] [place] Chloride [Moles/Vol] 100 mmol/L Normal 98-107 [facility] Comment on above: Order Comment: Speci men Type: BLOOD SPECIMENOrdering Facility: [facility] Address: [address] [place] [address] Performed By: #### 2 4323-8 ####[facility] LABORATORYCLIA [id number] [place] [address] [place] CO2 [Moles/Vol] 22 mmol/L Normal 22-30 [facility] Comment on above: Order Comment: [place]ian[place] men Type: BLOOD SPECIMENOrdering Facility: [facility] Address: [address] [place] [address] Performed By: #### 2 4323-8 ####[facility] LABORATORYCLIA [id number] [address] [place] Creatinine [Mass/Vol] 1.00 mg/dL High 0.58-0.96 [facility] Comment on above: Order Comment: Kianai men Type: BLOOD SPECIMENOrdering Facility: [facility] Address: [address] [place] [address] Performed By: #### 2 4323-8 ####[facility] LABORATORYCLIA [id number] [address] Creatinine and Glomerular filtration rate.predicted panel (S/P/Bld) 71 mL/min/1.73m??? Normal >=60 [facility] Comment on above: Order Comment: David ponce Type: BLOOD SPECIMENOrdering Facility: [facility] Address: [address] [place] [address] Result Comment: Vidal mated Glomerular Filtration Rate [...] Performed By: #### 2 4323-8 ####[facility] LABORATORYCLIA [id number] [address] [place] Glucose [Mass/Vol] 87 mg/dL Normal 74-99 [facility] Comment on above: Order Comment: Speci men Type: BLOOD SPECIMENOrdering Facility: [facility] Address: [address] [place] [address] Result Comment: [place] Diabetes Association (ADA) provides guidance for cutoff [...] Standards of Medical Care in Diabetes 2016, [place] Diabetes Association. Diabetes Care. 2016.39(Suppl 1). Performed By: #### 2 4323-8 ####[facility] LABORATORYCLIA [id number] [place] [address] [place] Potassium [Moles/Vol] 4.7 mmol/L Normal 3.7-5.1 [facility] Comment on above: Order Comment: [place]ian[place] ponce Type: BLOOD SPECIMENOrdering Facility: [facility] Address: [address] [place] [address] Performed By: #### 2 4323-8 ####[facility] LABORATORYCLIA [id number] [place] [address] [place] Protein [Mass/Vol] 6.9 g/dL Normal 6.3-8.0 [facility] Comment on above: Order Comment: David ponce Type: BLOOD SPECIMENOrdering Facility: [facility] Address: [address] [place], [place] [address] Performed By: #### 2 4323-8 ####[facility] LABORATORYCLIA [id number] [place] [address] [place] Sodium [Moles/Vol] 134 mmol/L Low 136-144 [facility] Comment on above: Order Comment: David ponce Type: BLOOD SPECIMENOrdering Facility: [facility] Address: [address] [place], [place] [address] Performed By: #### 2 4323-8 ####[facility] LABORATORYCLIA [id number] [address] STATES [facility] Urea nitrogen [Mass/Vol] 17 mg/dL Normal 7-21 [facility] Comment on above: Order Comment: Speci men Type: BLOOD SPECIMENOrdering Facility: [facility] Address: [address] [place] [address] Performed By: #### 2 4323-8 ####[facility] LABORATORYCLIA [id number] [address] [place] CBC panel Auto (Bld)on 05-17 Erythrocyte distribution width (RBC) [Ratio] 14.3 % Normal 11.5-15.0 [facility] Comment on above: Order Comment: Speci men Type: BLOOD SPECIMENOrdering Facility: [facility] Address: [address] [place] [address] Performed By: #### 5 8410-2 ####[facility] LABORATORYCLIA [id number] [address] Hematocrit (Bld) [Volume fraction] 42.1 % Normal 36.0-46.0 [facility] Comment on above: Order Comment: Speci men Type: BLOOD SPECIMENOrdering Facility: [facility] Address: [address] [place] [address] Performed By: #### 5 8410-2 ####[facility] LABORATORYCLIA [id number] [address] [place] Hemoglobin (Bld) [Mass/Vol] 13.7 g/dL Normal 11.5-15.5 [facility] Comment on above: Order Comment: Speci men Type: BLOOD SPECIMENOrdering Facility: [facility] Address: [address] [place] [address] Performed By: #### 5 8410-2 ####[facility] LABORATORYCLIA [id number] [address] STATES [facility] MCH (RBC) [Entitic mass] 31.7 pg Normal 26.0-34.0 [facility] Comment on above: Order Comment: Speci men Type: BLOOD SPECIMENOrdering Facility: [facility] Address: [address] [place] [address] Performed By: #### 5 8410-2 ####[facility] LABORATORYCLIA [id number] [address] MCHC (RBC) [Mass/Vol] 32.5 g/dL Normal 30.5-36.0 [facility] Comment on above: Order Comment: Speci men Type: BLOOD SPECIMENOrdering Facility: [facility] Address: [address] [place] [address] Performed By: #### 5 8410-2 ####[facility] LABORATORYCLIA [id number] [address] [place] MCV (RBC) [Entitic vol] 97.5 fL Normal 80.0-100.0 [facility] Comment on above: Order Comment: Speci men Type: BLOOD SPECIMENOrdering Facility: [facility] Address: [address] [place] [address] Performed By: #### 5 8410-2 ####[facility] LABORATORYCLIA [id number] [address] Nucleated RBC (Bld) [#/Vol] 10*3/uL Normal <0.01 [facility] Comment on above: Order Comment: Speci men Type: BLOOD SPECIMENOrdering Facility: [facility] Address: [address] [place] [address] Performed By: #### 5 8410-2 ####[facility] LABORATORYCLIA [id number] [address] [place] Platelet mean volume (Bld) [Entitic vol] 10.5 fL Normal 9.0-12.7 [facility] Comment on above: Order Comment: Speci men Type: BLOOD SPECIMENOrdering Facility: [facility] Address: [address] [place] [address] Performed By: #### 5 8410-2 ####[facility] LABORATORYCLIA [id number] [address] [place] Platelets (Bld) [#/Vol] 265 10*3/uL Normal 150-400 [facility] Comment on above: Order Comment: Speci men Type: BLOOD SPECIMENOrdering Facility: [facility] Address: [address] [place] [id number] Performed By: #### 5 8410-2 ####[facility] LABORATORYCLIA [id number] [place] [address] [place] RBC (Bld) [#/Vol] 4.32 10*6/uL Normal 3.90-5.20 [facility] Comment on above: Order Comment: Speci men Type: BLOOD SPECIMENOrdering Facility: [facility] Address: [address] [place] [address] Performed By: #### 5 8410-2 ####[facility] LABORATORYCLIA [id number] [place] [id number] [place] WBC (Bld) [#/Vol] 9.33 10*3/uL Normal 3.70-11.00 [facility] Comment on above: Order Comment: Speci men Type: BLOOD SPECIMENOrdering Facility: [facility] Address: [address] [place] [address] Performed By: #### 5 8410-2 ####[facility] LABORATORYCLIA [id number] [address] CONSULTon 05-17-2024 CONSULT HNO ID: [id number] Author: JOSIE OVALLES APRN.[place] CLASSIFIER Service: Wound/Ostomy Author Type: Nurse Practitioner Type: [...] PERMANENT TRANSVENOUS PACEMAKER INSERTION 2006 ICD implant, [facility] ANESTHESIA TUBAL LIGATION/TRANSECTION APPENDECTOMY 05/05/2014 , lap [...] mL INTRAVENOUS (more content not included)... [facility] CONSULT PROGon 05-17-2024 CONSULT PROG HNO ID: [id number] Author: SALLIE WILKERSON RPh Service: Pharmacy Author [...] have any questions, please contact pharmacy at [phone]. Age: [age] year old Allergies: ALLERGIES Allergen Reactions Prozac [Fluoxetine * Other: See Comments suicidal ideations Ativan [Lorazepam] Vomiting Azithromycin Intolerance Reliance Anaphylaxis Reliance Anaphylaxis pickles Fish Anaphylaxis Levofloxacin In D5w [...] Date/Time Value 05/17/2024 1240 14.7 Sallie Wilkerson [facility] Normal [facility] Comprehensive metabolic 2000 panelon 05-17-2024 Albumin [Mass/Vol] 4.0 g/dL Normal 3.9-4.9 [facility] Comment on above: Order Comment: Speci men Type: BLOOD SPECIMENOrdering Facility: [facility] Address: [address] [place] [address] Performed By: #### 2 4323-8 ####[facility] LABORATORYCLIA [id number] [address] ALP [Catalytic activity/Vol] 249 U/L High 34-123 [facility] Comment on above: Order Comment: Speci men Type: BLOOD SPECIMENOrdering Facility: [facility] Address: [address] [place] [address] Performed By: #### 2 4323-8 ####[facility] LABORATORYCLIA [id number] [address] ALT [Catalytic activity/Vol] 58 U/L High 7-38 [facility] Comment on above: Order Comment: Speci men Type: BLOOD SPECIMENOrdering Facility: [facility] Address: [address] [place] [address] Performed By: #### 2 4323-8 ####[facility] LABORATORYCLIA [id number] [address] Anion gap [Moles/Vol] 10 mmol/L Normal 8-15 [facility] Comment on above: Order Comment: Speci men Type: BLOOD SPECIMENOrdering Facility: [facility] Address: [address] [place] [address] Performed By: #### 2 4323-8 ####[facility] LABORATORYCLIA [id number] [place] [address] [place] AST [Catalytic activity/Vol] 47 U/L High 13-35 [facility] Comment on above: Order Comment: Speci men Type: BLOOD SPECIMENOrdering Facility: [facility] Address: [address] [place] [address] Performed By: #### 2 4323-8 ####[facility] LABORATORYCLIA [id number] [place] [address] [place] Bilirubin [Mass/Vol] 0.6 mg/dL Normal 0.2-1.3 [facility] Comment on above: Order Comment: Speci men Type: BLOOD SPECIMENOrdering Facility: [facility] Address: [address] [place] [address] Performed By: #### 2 4323-8 ####[facility] LABORATORYCLIA [id number] [place] [address] [place] Calcium [Mass/Vol] 9.1 mg/dL Normal 8.5-10.2 [facility] Comment on above: Order Comment: Speci men Type: BLOOD SPECIMENOrdering Facility: [facility] Address: [address] [place] [address] Performed By: #### 2 4323-8 ####[facility] LABORATORYCLIA [id number] [place] [address] [place] Chloride [Moles/Vol] 99 mmol/L Normal 98-107 [facility] Comment on above: Order Comment: Speci men Type: BLOOD SPECIMENOrdering Facility: [facility] Address: [address] [place] [address] Performed By: #### 2 4323-8 ####[facility] LABORATORYCLIA [id number] [place] [address] [place] CO2 [Moles/Vol] 25 mmol/L Normal 22-30 [facility] Comment on above: Order Comment: Speci men Type: BLOOD SPECIMENOrdering Facility: [facility] Address: [address] [place] [address] Performed By: #### 2 4323-8 ####[facility] LABORATORYCLIA [id number] [address] STATES OF [facility] Creatinine [Mass/Vol] 0.87 mg/dL Normal 0.58-0.96 [facility] Comment on above: Order Comment: David ponce Type: BLOOD SPECIMENOrdering Facility: [facility] Address: [address] [place] [address] Performed By: #### 2 4323-8 ####[facility] LABORATORYCLIA [id number] [address] Creatinine and Glomerular filtration rate.predicted panel (S/P/Bld) 84 mL/min/1.73m??? Normal >=60 [facility] Comment on above: Order Comment: David ponce Type: BLOOD SPECIMENOrdering Facility: [facility] Address: [address] [place] [address] Result Comment: Vidal mated Glomerular Filtration Rate [...] Performed By: #### 2 4323-8 ####[facility] LABORATORYCLIA [id number] [address] [place] Glucose [Mass/Vol] 97 mg/dL Normal 74-99 [facility] Comment on above: Order Comment: [facility] Type: BLOOD SPECIMENOrdering Facility: [facility] Address: [address] [place] [address] Result Comment: The [place] Diabetes Association (ADA) provides guidance for cutoff [...] Standards of Medical Care in Diabetes 2016, [place] Diabetes Association. Diabetes Care. 2016.39(Suppl 1). Performed By: #### 2 4323-8 ####[facility] LABORATORYCLIA [id number] [address] STATES [facility] Potassium [Moles/Vol] 4.6 mmol/L Normal 3.7-5.1 [facility] Comment on above: Order Comment: Speci sol Type: BLOOD SPECIMENOrdering Facility: [facility] Address: [address] [place] [address] Performed By: #### 2 4323-8 ####[facility] LABORATORYCLIA [id number] [address] Protein [Mass/Vol] 6.7 g/dL Normal 6.3-8.0 [facility] Comment on above: Order Comment: Speci men Type: BLOOD SPECIMENOrdering Facility: [facility] Address: [address] [place] [address] Performed By: #### 2 4323-8 ####[facility] LABORATORYCLIA [id number] [address] Sodium [Moles/Vol] 134 mmol/L Low 136-144 [facility] Comment on above: Order Comment: Kianai sol Type: BLOOD SPECIMENOrdering Facility: [facility] Address: [address] [place] [address] Performed By: #### 2 4323-8 ####[facility] LABORATORYCLIA [id number] [address] [place] Urea nitrogen [Mass/Vol] 12 mg/dL Normal 7-21 [facility] Comment on above: Order Comment: Kianai men Type: BLOOD SPECIMENOrdering Facility: [facility] Address: [address] [place] [address] Performed By: #### 2 4323-8 ####[facility] LABORATORYCLIA [id number] [place] [address] [place] Vancomycin Ball SerPl-mCncon 05-17-2024 Vancomycin random [Mass/Vol] 14.7 ug/mL Normal 10.0-20.0 [facility] Comment on above: Order Comment: David ponce Type: BLOOD SPECIMEN [facility] Address: [address] [place] [address] Result Comment: Refe rence ranges and high/low indicator flags are provided as general guidelines only. The treating physician must determine appropriate target levels/dosing based on the specific clinical situation. Performed By: #### 5 8410-2 #### [facility] CLIA [id number] [address] CBC panel Auto (Bld)on 05-16 Erythrocyte distribution width (RBC) [Ratio] 14.5 % Normal 11.5-15.0 [facility] Comment on above: Order Comment: David ponce Type: BLOOD SPECIMENOrdering Facility: [facility] Address: [address] [place] [address] Performed By: #### 5 8410-2 ####[facility] LABORATORYCLIA [id number] [address] Hematocrit (Bld) [Volume fraction] 37.8 % Normal 36.0-46.0 [facility] Comment on above: Order Comment: David ponce Type: BLOOD SPECIMENOrdering Facility: [facility] Address: [address] [place] [address] Performed By: #### 5 8410-2 ####[facility] LABORATORYCLIA [id number] [address] Hemoglobin (Bld) [Mass/Vol] 12.6 g/dL Normal 11.5-15.5 [facility] Comment on above: Order Comment: David ponce Type: BLOOD SPECIMENOrdering Facility: [facility] Address: [address] [place] [address] Performed By: #### 5 8410-2 ####[facility] LABORATORYCLIA [id number] [address] MCH (RBC) [Entitic mass] 32.2 pg Normal 26.0-34.0 [facility] Comment on above: Order Comment: Speci men Type: BLOOD SPECIMENOrdering Facility: [facility] Address: [address] [place] [address] Performed By: #### 5 8410-2 ####[facility] LABORATORYCLIA [id number] [address] STATES [facility] MCHC (RBC) [Mass/Vol] 33.3 g/dL Normal 30.5-36.0 [facility] Comment on above: Order Comment: Speci men Type: BLOOD SPECIMENOrdering Facility: [facility] Address: [address] [place] [address] Performed By: #### 5 8410-2 ####[facility] LABORATORYCLIA [id number] [address] MCV (RBC) [Entitic vol] 96.7 fL Normal 80.0-100.0 [facility] Comment on above: Order Comment: Speci men Type: BLOOD SPECIMENOrdering Facility: [facility] Address: [address] [place] [address] Performed By: #### 5 8410-2 ####[facility] LABORATORYCLIA [id number] [address] Nucleated RBC (Bld) [#/Vol] 10*3/uL Normal <0.01 [facility] Comment on above: Order Comment: Speci men Type: BLOOD SPECIMENOrdering Facility: [facility] Address: [address] [place] [address] Performed By: #### 5 8410-2 ####[facility] LABORATORYCLIA [id number] [address] [place] Platelet mean volume (Bld) [Entitic vol] 10.5 fL Normal 9.0-12.7 [facility] Comment on above: Order Comment: Speci men Type: BLOOD SPECIMENOrdering Facility: [facility] Address: [address] [place] [address] Performed By: #### 5 8410-2 ####[facility] LABORATORYCLIA [id number] [place] [address] [place] Platelets (Bld) [#/Vol] 234 10*3/uL Normal 150-400 [facility] Comment on above: Order Comment: Speci men Type: BLOOD SPECIMENOrdering Facility: [facility] Address: [address] [place] [address] Performed By: #### 5 8410-2 ####[facility] LABORATORYCLIA [id number] [place] [address] [place] [facility] [place] RBC (Bld) [#/Vol] 3.91 10*6/uL Normal 3.90-5.20 [facility] Comment on above: Order Comment: Speci men Type: BLOOD SPECIMENOrdering Facility: [facility] Address: [address] [place] [address] Performed By: #### 5 8410-2 ####[facility] LABORATORYCLIA [id number] [address] WBC (Bld) [#/Vol] 6.77 10*3/uL Normal 3.70-11.00 [facility] Comment on above: Order Comment: Speci men Type: BLOOD SPECIMENOrdering Facility: [facility] Address: [address] [place] [address] Performed By: #### 5 8410-2 ####[facility] LABORATORYCLIA [id number] [address] CONSULT PROGon 05-16-2024 CONSULT PROG HNO ID: [id number] Author: ALYCIA LEES RPh Service: Pharmacy Author [...] have any questions, please contact pharmacy at [phone]. Age: [age] year old Allergies: ALLERGIES Allergen Reactions Prozac [Fluoxetine * Other: See Comments suicidal ideations Ativan [Lorazepam] Vomiting Azithromycin Intolerance Reliance Anaphylaxis Reliance Anaphylaxis pickles Fish Anaphylaxis Levofloxacin In D5w [...] Levels: No results found for: ALICIA Lees [facility] Comprehensive metabolic 2000 panelon 05-16-2024 Albumin [Mass/Vol] 3.6 g/dL Low 3.9-4.9 [facility] Comment on above: Order Comment: Speci men Type: BLOOD SPECIMEN [facility] Address: [address] [place] [address] Performed By: #### 5 8410-2 #### [facility] CLIA [id number] [address] [place] ALP [Catalytic activity/Vol] 212 U/L High 34-123 [facility] Comment on above: Order Comment: Speci men Type: BLOOD SPECIMEN Ordering Facility: [facility] Address: [address] [place] [address] Performed By: #### 5 8410-2 #### [facility] CLIA [id number] [address] ALT [Catalytic activity/Vol] 49 U/L High 7-38 [facility] Comment on above: Order Comment: Speci men Type: BLOOD SPECIMEN Ordering Facility: [facility] Address: [address] [place] [address] Performed By: #### 5 8410-2 #### [facility] CLIA [id number] [address] STATES [facility] Anion gap [Moles/Vol] 10 mmol/L Normal 8-15 [facility] Comment on above: Order Comment: Speci men Type: BLOOD SPECIMEN Ordering Facility: [facility] Address: [address] [place] [address] Performed By: #### 5 8410-2 #### [facility] CLIA [id number] [address] AST [Catalytic activity/Vol] 57 U/L High 13-35 [facility] Comment on above: Order Comment: Speci men Type: BLOOD SPECIMEN Ordering Facility: [facility] Address: [address] [place] [address] Performed By: #### 5 8410-2 #### [facility] CLIA [id number] [address] [place] Bilirubin [Mass/Vol] 0.7 mg/dL Normal 0.2-1.3 [facility] Comment on above: Order Comment: Speci men Type: BLOOD SPECIMEN Ordering Facility: [facility] Address: [address] [place] [address] Performed By: #### 5 8410-2 #### [facility] CLIA [id number] 1000 [place] [address] [place] Calcium [Mass/Vol] 8.9 mg/dL Normal 8.5-10.2 [facility] Comment on above: Order Comment: Speci men Type: BLOOD SPECIMEN Ordering Facility: [facility] Address: [address] [place] [address] Performed By: #### 5 8410-2 #### [facility] CLIA [id number] 1000 [place] [address] [place] Chloride [Moles/Vol] 105 mmol/L Normal 98-107 [facility] Comment on above: Order Comment: Speci men Type: BLOOD SPECIMEN Ordering Facility: [facility] Address: [address] [place] [address] Performed By: #### 5 8410-2 #### [facility] CLIA [id number] [address] [place] [address] [place] CO2 [Moles/Vol] 22 mmol/L Normal 22-30 [facility] Comment on above: Order Comment: Speci men Type: BLOOD SPECIMEN Ordering Facility: [facility] Address: [address] [place] [address] Performed By: #### 5 8410-2 #### [facility] CLIA [id number] [address] [place] [address] [place] Creatinine [Mass/Vol] 0.82 mg/dL Normal 0.58-0.96 [facility] Comment on above: Order Comment: Speci men Type: BLOOD SPECIMEN Ordering Facility: [facility] Address: [address] [place] [address] Performed By: #### 5 8410-2 #### [facility] CLIA [id number] [address] [place] [address] [place] Creatinine and Glomerular filtration rate.predicted panel (S/P/Bld) 91 mL/min/1.73m??? Normal >=60 [facility] Comment on above: Order Comment: David ponce Type: BLOOD SPECIMEN Ordering Facility: [facility] Address: [address] [place] [address] Result Comment: Vidal mated Glomerular Filtration Rate [...] GFR. Performed By: #### 5 8410-2 #### [facility] CLIA [id number] [address] [place] [address] [place] Glucose [Mass/Vol] 79 mg/dL Normal 74-99 [facility] Comment on above: Order Comment: David ponce Type: BLOOD SPECIMEN Ordering Facility: [facility] Address: [address] [place] [address] Result Comment: The [place] Diabetes Association (ADA) provides guidance for cutoff [...] Standards of Medical Care in Diabetes 2016, [place] Diabetes Association. Diabetes Care. 2016.39(Suppl 1). Performed By: #### 5 8410-2 #### [facility] CLIA [id number] 1000 [place] [address] [place] Potassium [Moles/Vol] 4.4 mmol/L Normal 3.7-5.1 [facility] Comment on above: Order Comment: David ponce Type: BLOOD SPECIMEN Ordering Facility: [facility] Address: [address] [place] [id number] Performed By: #### 5 8410-2 #### [facility] CLIA [id number] [address] [place] Protein [Mass/Vol] 6.0 g/dL Low 6.3-8.0 [facility] Comment on above: Order Comment: David ponce Type: BLOOD SPECIMEN Ordering Facility: [facility] Address: [address] [place] [address] Performed By: #### 5 8410-2 #### [facility] CLIA [id number] [address] [place] Sodium [Moles/Vol] 137 mmol/L Normal 136-144 [facility] Comment on above: Order Comment: Kianai men Type: BLOOD SPECIMEN Ordering Facility: [facility] Address: [address] [place] [address] Performed By: #### 5 8410-2 #### [facility] CLIA [id number] [address] Urea nitrogen [Mass/Vol] 12 mg/dL Normal 7-21 [facility] Comment on above: Order Comment: Kianai men Type: BLOOD SPECIMEN Ordering Facility: [facility] Address: [address] [place] [address] Performed By: #### 5 8410-2 #### [facility] CLIA [id number] [address] HIGH SENSITIVITY TROPONIN To n 05-16-2024 Troponin T.cardiac High sensitivity method [Mass/Vol] 25 ng/L High <12 [facility] Comment on above: Order Comment: David ponce Type: BLOOD SPECIMEN Ordering Facility: [facility] Address: [address] [place] [address] Performed By: #### 5 8410-2 #### [facility] CLIA [id number] [address] [place] ALLIED HEALTHon 05-15-2024 ALLIED [facility] HNO ID: [id number] Author: ABELARDO LEES CT Service: Radiology Author [...] PATIENT PRESENTS WITH AN IMPLANTABLE OR ATTACHED BIOCHEMISTRY TEACHER: No RADIOLOGY DEPARTMENT: General X-ray: Exam(s) Completed: Chest X-Ray PERIPHERAL IV DATA: Not applicable SIGNED BY: MIRACLE Gomez May 15, 2024 12:01 PM [facility] HNO ID: [id number] Author: DOMINGUEZ BEGUM RT(R) Service: Radiology Author Type: Technologist Type: Allied Health Filed: 05/15/2024 11:22 Note Text: MEDIC @ BS GETTING LABS, IMAGING ORDER OUTSTANDING Normal [facility] Bacteria Bld Culton 05-16-19 25 Bacteria identified Cx Nom (Bld) CULTURE, BLOOD: No growth 5 days GRAM STAIN: This blood culture had less than the recommended 8 ml per bottle, which could decrease the sensitivity of the test. [facility] Comment on above: Performed By: #### 6 00-7 ####[facility]CLIA [id number] [address] Bacteria identified Cx Nom (Bld) CULTURE, BLOOD: No growth 5 days GRAM STAIN: This blood culture had less than the recommended 8 ml per bottle, which could decrease the sensitivity of the test. [facility] Comment on above: Performed By: #### 6 00-7 ####[facility] LABCLIA [id number] [facility] [address] [place] Bacteria Wnd Culton 05-16-19 25 Bacteria identified Cx Nom (Wound) CULTURE, WOUND: No growth GRAM STAIN: Rare Gram positive cocci Many Polymorphonuclear leukocytes Abnormal [facility] Comment on above: Performed By: #### 6 462-6 ####[facility] LABCLIA [id number] [facility] [id number] [place] [address] [place] CBC W Auto Differential pane l (Bld)on 05-15-2024 Basophils (Bld) [#/Vol] 0.08 10*3/uL Normal <0.11 [facility] Comment on above: Order Comment: Speci men Type: BLOOD SPECIMENOrdering Facility: [facility] Address: [address] [place] [address] Performed By: #### 5 7021-8 ####[facility] [id number] [place] [address] [place] Basophils/100 WBC (Bld) 0.9 % Normal [facility] Comment on above: Order Comment: Speci men Type: BLOOD SPECIMENOrdering Facility: [facility] Address: [address] [place] [address] Performed By: #### 5 7021-8 ####[facility] [id number] [place] [address] [place] Differential cell count method Nom (Bld) Auto Normal [facility] Comment on above: Order Comment: Speci men Type: BLOOD SPECIMENOrdering Facility: [facility] Address: [address] [place] [address] Performed By: #### 5 7021-8 ####[facility] [id number] [place] [address] [place] Eosinophils (Bld) [#/Vol] 0.10 10*3/uL Normal <0.46 [facility] Comment on above: Order Comment: Speci men Type: BLOOD SPECIMENOrdering Facility: [facility] Address: [address] [place] [address] Performed By: #### 5 7021-8 ####[facility] [id number] [address] [place] Eosinophils/100 WBC (Bld) 1.1 % Normal [facility] Comment on above: Order Comment: Speci men Type: BLOOD SPECIMENOrdering Facility: [facility] Address: [address] [place] [address] Performed By: #### 5 7021-8 ####[facility] [id number] [place] [address] [place] Erythrocyte distribution width (RBC) [Ratio] 14.4 % Normal 11.5-15.0 [facility] Comment on above: Order Comment: Speci men Type: BLOOD SPECIMENOrdering Facility: [facility] Address: [address] [place] [address] Performed By: #### 5 7021-8 ####[facility] [id number] [place] [address] [place] Hematocrit (Bld) [Volume fraction] 44.8 % Normal 36.0-46.0 [facility] Comment on above: Order Comment: Speci men Type: BLOOD SPECIMENOrdering Facility: [facility] Address: [address] [place] [address] Performed By: #### 5 7021-8 ####[facility] [id number] [place] [address] [place] Hemoglobin (Bld) [Mass/Vol] 14.5 g/dL Normal 11.5-15.5 [facility] Comment on above: Order Comment: Speci men Type: BLOOD SPECIMENOrdering Facility: [facility] Address: [address] [place] [address] Performed By: #### 5 7021-8 ####[facility] [id number] [address] [place] Immature granulocytes (Bld) [#/Vol] 0.04 10*3/uL Normal <0.10 [facility] Comment on above: Order Comment: Speci men Type: BLOOD SPECIMENOrdering Facility: [facility] Address: [address] [place] [address] Performed By: #### 5 7021-8 ####[facility] [id number] [address] [place] Immature granulocytes/100 WBC (Bld) 0.4 % Normal [facility] Comment on above: Order Comment: Speci men Type: BLOOD SPECIMENOrdering Facility: [facility] Address: [address] [place] [address] Performed By: #### 5 7021-8 ####[facility] [id number] [address] Lymphocytes (Bld) [#/Vol] 0.94 10*3/uL Low 1.00-4.00 [facility] Comment on above: Order Comment: Speci men Type: BLOOD SPECIMENOrdering Facility: [facility] Address: [address] [place] [address] Performed By: #### 5 7021-8 ####[facility] [id number] [address] Lymphocytes/100 WBC (Bld) 10.1 % Normal [facility] Comment on above: Order Comment: Speci men Type: BLOOD SPECIMENOrdering Facility: [facility] Address: [address] [place] [address] Performed By: #### 5 7021-8 ####[facility] [id number] [address] STATES [facility] MCH (RBC) [Entitic mass] 31.4 pg Normal 26.0-34.0 [facility] Comment on above: Order Comment: Speci men Type: BLOOD SPECIMENOrdering Facility: [facility] Address: [address] [place] [address] Performed By: #### 5 7021-8 ####[facility] [id number] [address] MCHC (RBC) [Mass/Vol] 32.4 g/dL Normal 30.5-36.0 [facility] Comment on above: Order Comment: Speci men Type: BLOOD SPECIMENOrdering Facility: [facility] Address: [address] [place] [address] Performed By: #### 5 7021-8 ####[facility] [id number] [address] MCV (RBC) [Entitic vol] 97.0 fL Normal 80.0-100.0 [facility] Comment on above: Order Comment: Speci men Type: BLOOD SPECIMENOrdering Facility: [facility] Address: [address] [place] [address] Performed By: #### 5 7021-8 ####[facility] [id number] [place] [address] [place] Monocytes (Bld) [#/Vol] 0.49 10*3/uL Normal <0.87 [facility] Comment on above: Order Comment: Speci men Type: BLOOD SPECIMENOrdering Facility: [facility] Address: [address] [place] [address] Performed By: #### 5 7021-8 ####[facility] [id number] [address] [place] Monocytes/100 WBC (Bld) 5.3 % Normal [facility] Comment on above: Order Comment: Speci men Type: BLOOD SPECIMENOrdering Facility: [facility] Address: [address] [place] [address] Performed By: #### 5 7021-8 ####[facility] [id number] [place] [address] [place] Neutrophils (Bld) [#/Vol] 7.65 10*3/uL High 1.45-7.50 [facility] Comment on above: Order Comment: Speci men Type: BLOOD SPECIMENOrdering Facility: [facility] Address: [address] [place] [address] Performed By: #### 5 7021-8 ####[facility] [id number] [address] [place] Neutrophils/100 WBC (Bld) 82.2 % Normal [facility] Comment on above: Order Comment: Speci men Type: BLOOD SPECIMENOrdering Facility: [facility] Address: [address] [place] [address] Performed By: #### 5 7021-8 ####[facility] [id number] [place] [address] [place] [facility] [place] Nucleated RBC (Bld) [#/Vol] 10*3/uL Normal <0.01 [facility] Comment on above: Order Comment: Speci men Type: BLOOD SPECIMENOrdering Facility: [facility] Address: [address] [place] [address] Performed By: #### 5 7021-8 ####[facility] [id number] [place] [address] [place] Nucleated RBC/100 WBC (Bld) [Ratio] 0.0 /100 WBC Normal [facility] Comment on above: Order Comment: Speci men Type: BLOOD SPECIMENOrdering Facility: [facility] Address: [address] [place] [address] Performed By: #### 5 7021-8 ####[facility] [id number] [place] [address] [place] Platelet mean volume (Bld) [Entitic vol] 10.2 fL Normal 9.0-12.7 [facility] Comment on above: Order Comment: Speci men Type: BLOOD SPECIMENOrdering Facility: [facility] Address: [address] [place] [address] Performed By: #### 5 7021-8 ####[facility] [id number] [place] [address] [place] Platelets (Bld) [#/Vol] 278 10*3/uL Normal 150-400 [facility] Comment on above: Order Comment: Speci men Type: BLOOD SPECIMENOrdering Facility: [facility] Address: [address] [place] [address] Performed By: #### 5 7021-8 ####[facility] [id number] [place] [address] [place] RBC (Bld) [#/Vol] 4.62 10*6/uL Normal 3.90-5.20 [facility] Comment on above: Order Comment: Speci men Type: BLOOD SPECIMENOrdering Facility: [facility] Address: [address] [place] [address] Performed By: #### 5 7021-8 ####[facility] [id number] [place] [address] [place] WBC (Bld) [#/Vol] 9.30 10*3/uL Normal 3.70-11.00 [facility] Comment on above: Order Comment: Speci men Type: BLOOD SPECIMENOrdering Facility: [facility] Address: [facility] [place] [address] Performed By: #### 5 7021-8 ####[facility] [id number] [place] [address] [place] CONSULT PROGon 05-15-2024 CONSULT PROG HNO ID: [id number] Author: ALEXI GARZON RPh Service: Pharmacy Author [...] have any questions, please contact pharmacy at [phone]. Age: [age] year old Allergies: ALLERGIES Allergen Reactions Prozac [Fluoxetine * Other: See Comments suicidal ideations Ativan [Lorazepam] Vomiting Azithromycin Intolerance Reliance Anaphylaxis Reliance Anaphylaxis pickles Fish Anaphylaxis Levofloxacin In D5w [...] Levels: No results found for: ALICIA Garzon [facility] CT CHEST W IVCONon CT CHEST W IVCON * * *Final Report* * * DATE OF EXAM: May 15 2024 7:02PM [facility] [place] - CT CHEST W IVCON / [...] interlobular septal thickening likely due to edema. Tap And Die Maker Technician: KIM Transcribe Date/Time: May 16 2024 9:02A Dictated by : BREANN HOOD MD This examination was interpreted and the report reviewed and electronically signed by: BREANN HOOD MD on May 16 2024 9:22AM EST [id number] Normal [facility] Comprehensive metabolic 2000 panelon 05-15-2024 Albumin [Mass/Vol] 4.5 g/dL Normal 3.9-4.9 [facility] Comment on above: Order Comment: Speci men Type: BLOOD SPECIMEN [facility] Address: [address] [place] [address] Performed By: #### 5 8410-2 #### [facility] CLIA [id number] [address] [place] [address] [place] ALP [Catalytic activity/Vol] 127 U/L High 34-123 [facility] Comment on above: Order Comment: Speci men Type: BLOOD SPECIMEN Order[facility] Facility: [facility] Address: [address] [place] [address] Performed By: #### 5 8410-2 #### [facility] CLIA [id number] [address] [place] ALT [Catalytic activity/Vol] 22 U/L Normal 7-38 [facility] Comment on above: Order Comment: Speci men Type: BLOOD SPECIMEN [facility] Address: [address] [place] [address] Performed By: #### 5 8410-2 #### [facility] CLIA [id number] [address] [place] [address] [place] Anion gap [Moles/Vol] 8 mmol/L Normal 8-15 [facility] Comment on above: Order Comment: Speci men Type: BLOOD SPECIMEN [facility] Address: [address] [place] [address] Performed By: #### 5 8410-2 #### [facility] CLIA [id number] [address] [place] [address] [place] AST [Catalytic activity/Vol] 23 U/L Normal 13-35 [facility] Comment on above: Order Comment: Speci men Type: BLOOD SPECIMEN [facility] Address: [address] [place] [address] Performed By: #### 5 8410-2 #### [facility] CLIA [id number] [address] [place] Bilirubin [Mass/Vol] 0.9 mg/dL Normal 0.2-1.3 [facility] Comment on above: Order Comment: Speci men Type: BLOOD SPECIMEN [facility] Address: [address] [place] [address] Performed By: #### 5 8410-2 #### [facility] CLIA [id number] [address] OF [facility] Calcium [Mass/Vol] 9.4 mg/dL Normal 8.5-10.2 [facility] Comment on above: Order Comment: Speci men Type: BLOOD SPECIMEN [facility] Facility[facility] Address: [address] [place] [address] Performed By: #### 5 8410-2 #### [facility] CLIA [id number] [address] [place] Chloride [Moles/Vol] 104 mmol/L Normal 98-107 [facility] Comment on above: Order Comment: Speci men Type: BLOOD SPECIMEN [facility] Facility: [facility] Address: [address] [place] [address] Performed By: #### 5 8410-2 #### [facility] CLIA [id number] [address] [place] CO2 [Moles/Vol] 25 mmol/L Normal 22-30 [facility] Comment on above: Order Comment: David pnoce Type: BLOOD SPECIMEN [facility] Facility[facility] Address: [address] [place] [address] Performed By: #### 5 8410-2 #### [facility] CLIA [id number] [address] [place] Creatinine [Mass/Vol] 0.89 mg/dL Normal 0.58-0.96 [facility] Comment on above: Order Comment: David men Type: BLOOD SPECIMEN [facility] Address: [address] [place] [address] Performed By: #### 5 8410-2 #### [facility] CLIA [id number] [address] Creatinine and Glomerular filtration rate.predicted panel (S/P/Bld) 82 mL/min/1.73m??? Normal >=60 [facility] Comment on above: Order Comment: Kianai men Type: BLOOD SPECIMEN [facility] Address: [address] [place] [address] Result Comment: Vidal mated Glomerular Filtration Rate [...] GFR. Performed By: #### 5 8410-2 #### [facility] CLIA [id number] [address] Glucose [Mass/Vol] 80 mg/dL Normal 74-99 [facility] Comment on above: Order Comment: David sol Type: BLOOD SPECIMEN [facility] Facility: [facility] Address: [address] [place] [address] Result Comment: The [place] Diabetes Association (ADA) provides guidance for cutoff [...] Standards of Medical Care in Diabetes 2016, [place] Diabetes Association. Diabetes Care. 2016.39(Suppl 1). Performed By: #### 5 8410-2 #### [facility] CLIA [id number] [address] [place] [address] [place] Potassium [Moles/Vol] 4.3 mmol/L Normal 3.7-5.1 [facility] Comment on above: Order Comment: David ponce Type: BLOOD SPECIMEN [facility] Facility[facility] Address: [address] [place] [address] Performed By: #### 5 8410-2 #### [facility] CLIA [id number] [address] [place] [address] [place] Protein [Mass/Vol] 7.3 g/dL Normal 6.3-8.0 [facility] Comment on above: Order Comment: David ponce Type: BLOOD SPECIMEN [facility] Facility[facility] Address: [address] [place] [address] Performed By: #### 5 8410-2 #### [facility] CLIA [id number] [address] [place] [address] [place] Sodium [Moles/Vol] 137 mmol/L Normal 136-144 [facility] Comment on above: Order Comment: David ponce Type: BLOOD SPECIMEN [facility] Facility: [facility] Address: [address] [place] [address] Performed By: #### 5 8410-2 #### [facility] CLIA [id number] [address] [place] [address] [place] Urea nitrogen [Mass/Vol] 11 mg/dL Normal 7-21 [facility] Comment on above: Order Comment: David ponce Type: BLOOD SPECIMEN Order[facility] Facility[facility] Address: [address] [id number] Performed By: #### 5 8410-2 #### [facility] CLIA [id number] [address] [place] [address] [place] ED NOTEon 05-15-2024 ED NOTE HNO ID: [id number] Author: CK TADEO, RN Service: Nursing Author Type: Registered Nurse Type: ED Notes Filed: 05/15/2024 17:54 Note Text: Report called to [address] [place] [address] ED PROV NOTEon 05-15-2024 ED PROV NOTE HNO ID: [id number] Author: TARIQ PEREZ MD Service: Emergency Medicine [...] persistent chest pain. History provided by: Patient circulation manager used: No PAST MEDICAL HISTORY Diagnosis Date [...] PERMANENT TRANSVENOUS PACEMAKER INSERTION 2006 ICD implant, [facility] ANESTHESIA TUBAL LIGATION/TRANSECTION APPENDECTOMY 05/05/2014 , lap [...] suicidal ideations Ativan [Lorazepam] Vomiting Azithromycin Intolerance Reliance Anaphylaxis Fish Anaphylaxis Levofloxacin In D5w Swelling, [...] ?F) Or (more content not included)... Normal [facility] EKGon 05-15-2024 Electrocardiogram Ventricular Rate : 7 1 BPM Atrial Rate : 71 BPM P-R Interval : 162 ms QRS Duration : 90 ms Q-T Interval : 406 ms QTC Calculation(Bazett) : 441 ms Calculated P [place] : 41 degrees Calculated R [place] : 260 degrees Calculated T [place] : 75 degrees NORMAL SINUS RHYTHM LEFT ATRIAL ENLARGEMENT BIVENTRICULAR HYPERTROPHY CANNOT RULE OUT SEPTAL INFARCT , AGE UNDETERMINED POSSIBLE LATERAL INFARCT (CITED ON OR BEFORE 22-Dec-2018) ABNORMAL ECG When compared with selected ECG of 24-Apr-2021 22:05, QRS AXIS SHIFTED LEFT no STEMI Confirmed by TARIQ PEREZ MD ([id number]) on 05/15/2024 12:29:22 PM NAME : MICHELLE MITCHELL PID : [id number] : 1980 Gender : Female Race : [...] no STEMI Confirmed by TARIQ PEREZ MD ([id number]) on 05/15/2024 12:29:22 PM Test Reason : Location : 1 : ER ED Overread By : TARIQ PEREZ MD Edited By : TARIQ PEREZ MD Referred By : , Acquired by : Carlos Eduardo NAVARRETE [facility] Gas and Carbon monoxide pane l (BldV)on 05-15-2024 Base excess Calc (BldV) [Moles/Vol] 0 mmol/L Normal 0-2 [facility] Comment on above: Order Comment: Speci men Type: VENOUS BLOOD SPECIMENOrdering Facility: [facility] Address: [address] [place] [address] Performed By: #### 2 4344-4 ####[place] [id number] [facility] RESPIRATORY [id number] [address] [address] Carboxyhemoglobin (BldV) [Mass fraction] 2.5 % High 0.0-2.0 [facility] Comment on above: Order Comment: Speci men Type: VENOUS BLOOD SPECIMENOrdering Facility: [facility] Address: [address] [place] [address] Result Comment: Carb oxyhemoglobin Reference Range for Smokers: 2.0-8.0% Performed By: #### 2 4344-4 ####[place] [id number] [facility] RESPIRATORY [id number] [address] [address] CO2 (BldV) [Partial pressure] 41 mm[Hg] Low 42-55 [facility] Comment on above: Order Comment: Speci men Type: VENOUS BLOOD SPECIMENOrdering Facility: [facility] Address: [address] [place] [address] Performed By: #### 2 4344-4 ####[place] [id number] [place] [address] RESPIRATORY [id number] [address] CO2 adjusted to patient's actual temperature (BldV) [Partial pressure] Normal [facility] Comment on above: Order Comment: Speci men Type: VENOUS BLOOD SPECIMENOrdering Facility: [facility] Address: [address] [place] [address] Performed By: #### 2 4344-4 ####[facility] RESPIRATORYCLIA [id number] [facility]OS[facility] RESPIRATORY [id number] [address] [address] HCO3 (Bld) [Moles/Vol] 25 mmol/L Normal 24-28 [place] Comment on above: Order Comment: Speci men Type: VENOUS BLOOD SPECIMENOrdering Facility: [facility] Address: [address] [place] [address] Performed By: #### 2 4344-4 ####[facility] RESPIRATORYCLIA [id number] [facility]OSP[facility] RESPIRATORY [id number] [address] [address] Hemoglobin (Bld) [Mass/Vol] 15.4 g/dL Normal 11.5-15.5 [facility] Comment on above: Order Comment: Speci men Type: VENOUS BLOOD SPECIMENOrdering Facility: [facility] Address: [address] [place], [place] [address] Performed By: #### 2 4344-4 ####[facility] RESPIRATORYIA [id number] [facility]OSPITAL RESPIRATORY [id number] [address] [address] Lactate [Moles/Vol] 1.2 mmol/L Normal 0.5-2.2 [facility] Comment on above: Order Comment: Speci men Type: VENOUS BLOOD SPECIMENOrdering Facility: [facility] Address: [address] [place] [address] Performed By: #### 2 4344-4 ####[facility] RESPIRATORYCLIA [id number] [id number] [address] [address] Methemoglobin (Bld) [Mass fraction] % Normal 0.0-1.5 [facility] Comment on above: Order Comment: Speci men Type: VENOUS BLOOD SPECIMENOrdering Facility: [facility] Address: [address] [place] [address] Performed By: #### 2 4344-4 ####[facility]IRATORYNORTHEAST[facility] [id number] HOSPITAL RESPIRATORY [id number] [address] [address] O2 THERAPY RA=Room Air Normal [facility] Comment on above: Order Comment: Speci men Type: VENOUS BLOOD SPECIMENOrdering Facility: [facility] Address: [address] [place] [address] Performed By: #### 2 4344-4 ####[facility] RESPIRATORYCLIA [id number] [facility]OSPITAL RESPIRATORY [id number] [address] [address] Oxygen (BldV) [Partial pressure] 32 mm[Hg] Low 35-45 [facility] Comment on above: Order Comment: Speci men Type: VENOUS BLOOD SPECIMENOrdering Facility: [facility] Address: [address] [place] [address] Performed By: #### 2 4344-4 ####[facility] RESPIRATORYCLIA [id number] [facility]OSPITAL RESPIRATORY [id number] [address] [address] Oxygen adjusted to patient's actual temperature (BldV) [Partial pressure] [facility] Comment on above: Order Comment: Speci men Type: VENOUS BLOOD SPECIMENOrdering Facility: [facility] Address: [address] [place] [address] Performed By: #### 2 4344-4 ####[facility] RESPIRATORYCLIA [id number] [facility]OS[facility] RESPIRATORY [id number] [address] Oxygen saturation in Venous blood 59 % Low 60-85 [facility] Comment on above: Order Comment: Speci men Type: VENOUS BLOOD SPECIMENOrdering Facility: [facility] Address: [address] [place] [address] Performed By: #### 2 4344-4 ####[facility] RESPIRATORYCLIA [id number] [facility]OSPITAL RESPIRATORY [id number] [address] [address] Oxyhemoglobin (BldV) [Mass fraction] 57 % Low 60-85 [facility] Comment on above: Order Comment: Speci men Type: VENOUS BLOOD SPECIMENOrdering Facility: [facility] Address: [address] [place] [address] Performed By: #### 2 4344-4 ####[facility] RESPIRATORYCLIA [id number] [facility] RESPIRATORY [id number] [address] [address] pH (BldV) 7.39 [pH] Normal 7.32-7.42 [facility] Comment on above: Order Comment: Speci men Type: VENOUS BLOOD SPECIMENOrdering Facility: [facility] Address: [address] [place] [address] Performed By: #### 2 4344-4 ####[facility] RESPIRATORYCLIA [id number] HOSPITAL RESPIRATORY [id number] [address] [address] pH adjusted to patient's actual temperature (BldV) Normal [facility] Comment on above: Order Comment: Speci men Type: VENOUS BLOOD SPECIMENOrdering Facility: [facility] Address: [address] [place] [address] Performed By: #### 2 4344-4 ####[facility] RESPIRATORYCLIA [id number] [facility]OS[facility] RESPIRATORY [id number] [place] [address] Potassium [Moles/Vol] 3.9 mmol/L Normal 3.5-5.0 [facility] Comment on above: Order Comment: Speci men Type: VENOUS BLOOD SPECIMENOrdering Facility: [facility] Address: [address] [place] [address] Performed By: #### 2 4344-4 ####[facility] RESPIRATORYCLIA [id number] [facility]OS[facility] RESPIRATORY [id number] [address] [address] HIGH SENSITIVITY TROPONIN T (INITIAL)on 05-15-2024 Troponin T.cardiac High sensitivity method [Mass/Vol] 22 ng/L High <12 [facility] Comment on above: Order Comment: Speci men Type: BLOOD SPECIMEN [facility] Address: [address] [place] [address] Performed By: #### 5 8410-2 #### [facility] CLIA [id number] [address] [place] [address] [facility] HIGH SENSITIVITY TROPONIN T (SECOND)on 05-15-2024 Troponin T.cardiac High sensitivity method [Mass/Vol] 22 ng/L High <12 [facility] Comment on above: Order Comment: Speci men Type: BLOOD SPECIMENOrdering Facility: [facility] Address: [address] [place] [address] Performed By: #### L [id number] ####[facility] LABORATORYCLIA [id number] [place] [id number] [facility] HIGH SENSITIVITY TROPONIN T (THIRD) 3 HRS AFTER INITIALon 05-15-2024 Troponin T.cardiac High sensitivity method [Mass/Vol] 24 ng/L High <12 [facility] Comment on above: Order Comment: Speci men Type: BLOOD SPECIMENOrdering Facility: [facility] Address: [address] [place], [place] [address] Performed By: #### L [id number] ####[facility] LABORATORYCLIA [id number] [place] [address] [facility] [place] HISTORY PHYSICALon HISTORY PHYSICAL HNO ID: [id number] Author: DEX WILKINSON MD Service: Family Practice [...] TRANSVENOUS PACEMAKER INSERTION Apr. 2006 ICD implant, [facility] ANESTHESIA TUBAL LIGATION/TRANSECTION APPENDECTOMY 05/05/2014 , lap [...] suicidal ideations Ativan [Lorazepam] Vomiting Azithromycin Intolerance Reliance Anaphylaxis Reliance Anaphylaxis pickles Fish Anaphylaxis Levofloxacin In D5w Swelling, Itching IV site swollen, ceased after d/c, redness and itching at site Neurontin [Gabapent* Mental Status Change Shellfish Anaphylaxis Tigan [Trimethobenz* Anaphylaxis Ultram [Tram (more content not included)... Normal [facility] NT-proBNP SerPl-mCncon 05-15 Natriuretic peptide.B prohormone N-Terminal [Mass/Vol] 2616 pg/mL High <125 [facility] Comment on above: Order Comment: Spectian ponce Type: BLOOD SPECIMEN [facility] Address: [address] [place], [place] [address] Performed By: #### 5 8410-2 #### [facility] CLIA [id number] [address] [place] [address] [place] PT panel Coag (PPP)on 2024 INR Coag (PPP) [Relative time] 1.1 {INR} Normal 0.9-1.3 [facility] Comment on above: Order Comment: Speci men Type: BLOOD SPECIMENOrdering Facility: [facility] Address: [address] [place] [address] Result Comment: Nancy min K Antagonist (VKA) Therapeutic Range: INR 2 to 3 (Target INR of 2.5) Note: For patients treated with VKA drugs, such as warfarin, the [place] [employer] 2012 Guideline recommends [...] Chest 2012, 141:7S-47S Gia RA, et al. [facility] 2017, 70: 252-289 Performed By: #### 3 4528-0, 42438-4 ####[facility] LABORATORYCLIA [id number] [place] [address] [place] PT Coag (PPP) [Time] 11.7 s Normal 9.7-13.0 [facility] Comment on above: Order Comment: David ponce Type: BLOOD SPECIMENOrdering Facility: [facility] Address: [address] [place], [place] [address] Performed By: #### 3 4528-0, 59685-7 ####[facility] LABORATORYCLIA [id number] [place] [address] [place] XR CHEST 1V [...] Other: . IMPRESSION: Bilateral consolidation is suspected. Tap And Die Maker Technician: KIM Transcribe Date/Time: May 15 2024 12:02P Dictated by : BOGDAN LUNA MD This examination was interpreted and the report reviewed and electronically signed by: BOGDAN LUNA MD on May 15 2024 12:05PM EST [id number] Normal [facility] aPTT PPPon 05-15-2024 aPTT Coag (PPP) [Time] 28.2 s Normal 23.0-32.4 [place] Comment on above: Order Comment: Speci men Type: BLOOD SPECIMENOrdering Facility: [facility] Address: [address] [place] [address] Performed By: #### 3 4528-0, 42350-5 ####[facility] LABORATORYCLIA [id number] [place] [address] [place] [facility] Emergency Department Summary on 05-12-2024 Emergency Department Summary Normal [facility] Pacemaker Checkon 03-28-2024 Pacemaker Check Normal [facility] CBC (INCLUDES DIFF/PLT)on Basophils (Bld) [#/Vol] 0.056 10*3/uL Normal 0-200 [facility] Comment on above: Performed By: #### 1 0231, 7137, 5616, 1005, 899, 6399 #### [facility] [address] , [address] [place] [address] Clinical Engineering Director: Gage Viramontes MD Basophils/100 WBC (Bld) 0.5 % Normal [facility] Comment on above: Performed By: #### 1 0231, 7137, 5616, 1005, 899, 6399 #### [facility] [address], [address] [place] [address] Clinical Engineering Director: Gage Viramontes MD Eosinophils (Bld) [#/Vol] 0.122 10*3/uL Normal 15-500 [facility] Comment on above: Performed By: #### 1 0231, 7137, 5616, 1005, 899, 6399 #### [facility] of [address], [address] [place] [address] Clinical Engineering Director: Gage Viramontes MD Eosinophils/100 WBC (Bld) 1.1 % Normal [facility] Comment on above: Performed By: #### 1 0231, 7137, 5616, 1005, 899, 6399 #### [facility] of [place] [address] Clinical Engineering Director: Gage Viramontes MD Erythrocyte distribution width (RBC) [Ratio] 11.5 % Normal 11.0-15.0 [facility] Comment on above: Performed By: #### 1 0231, 37, 5616, 1005, 899, 6399 #### [facility] of [place] [address] Clinical Engineering Director: Gage Viramontes MD Hematocrit (Bld) [Volume fraction] 43.8 % Normal 35.0-45.0 [facility] Comment on above: Performed By: #### 1 0231, 7137, 5616, 1005, 899, 6399 #### [facility] of [place] [address] Clinical Engineering Director: Gage Viramontes MD Hemoglobin (Bld) [Mass/Vol] 14.5 g/dL Normal 11.7-15.5 [facility] Comment on above: Performed By: #### 1 0231, 7137, 5616, 1005, 899, 6399 #### [facility] of [place] [address] Clinical Engineering Director: Gage Viramontes MD Lymphocytes (Bld) [#/Vol] 1.021 10*3/uL Normal 850-3900 [facility] Comment on above: Performed By: #### 1 0231, 7137, 5616, 1005, 899, 6399 #### [facility] of [address], [address] [place] [address] Clinical Engineering Director: Gage Viramontes MD Lymphocytes/100 WBC (Bld) 9.2 % Normal [facility] Comment on above: Performed By: #### 1 023, 7136, 5616, 1005, 899, 6399 #### [facility] [place] [address] Clinical Engineering Director: Gage Viramontes MD MCH (RBC) [Entitic mass] 31.7 pg Normal 27.0-33.0 [facility] Comment on above: Performed By: #### 1 023, 7136, 561, 1005, 89, 6399 #### [facility] of [place] [address] Clinical Engineering Director: Gage Viramontes MD MCHC (RBC) [Mass/Vol] 33.1 [...] patient's clinical condition. Performed By: #### 1 023, 7136, 561, 1005, 899, 6399 #### [facility] [place] [address] Clinical Engineering Director: Gage Viramontes MD MCV (RBC) [Entitic vol] 95.8 fL Normal 80.0-100.0 [facility] Comment on above: Performed By: #### 1 023, 7136, 5616, 1005, 899, 6399 #### [facility] [place] [address] Clinical Engineering Director: Gage Viramontes MD Monocytes (Bld) [#/Vol] 0.522 10*3/uL Normal 200-950 [facility] Comment on above: Performed By: #### 1 0231, 37, 5616, 1005, 899, 6399 #### [facility] of [place] [address] Clinical Engineering Director: Gage Viramontes MD Monocytes/100 WBC (Bld) 4.7 % Normal [facility] Comment on above: Performed By: #### 1 0231, 7137, 5616, 1005, 899, 6399 #### [facility] of [place] [address] Clinical Engineering Director: Gage Viramontes MD Neutrophils (Bld) [#/Vol] 9.38 10*3/uL High 1207-0412 [facility] Comment on above: Performed By: #### 1 0231, 7137, 5616, 1005, 899, 6399 #### [facility] of [place] [address] Clinical Engineering Director: Gage Viramontes MD Neutrophils/100 WBC (Bld) 84.5 % Normal [facility] Comment on above: Performed By: #### 1 0231, 7137, 5616, 1005, 899, 6399 #### [facility] of [place] [address] Clinical Engineering Director: Gage Viramontes MD Platelet mean volume (Bld) [Entitic vol] 12.1 fL Normal 7.5-12.5 [facility] Comment on above: Performed By: #### 1 0231, 7137, 5616, 1005, 899, 6399 #### [facility] of [place] [address] Clinical Engineering Director: Gage Viramontes MD Platelets (Bld) [#/Vol] 270 10*3/uL Normal 140-400 [facility] Comment on above: Performed By: #### 1 0231, 7137, 5616, 1005, 899, 6399 #### [facility] of [place] [address] Clinical Engineering Director: Gage Viramontes MD RBC (Bld) [#/Vol] 4.57 10*6/uL Normal 3.80-5.10 [facility] Comment on above: Performed By: #### 1 0231, 7137, 5616, 1005, 899, 6399 #### [facility] of [place] [address] Clinical Engineering Director: Gage Viramontes MD WBC (Bld) [#/Vol] 11.1 10*3/uL High 3.8-10.8 [facility] Comment on above: Performed By: #### 1 0231, 7137, 5616, 1005, 899, 6399 #### [facility] of [place] [address] Clinical Engineering Director: Gage Viramontes MD [facility] 01-06-2024 Albumin [Mass/Vol] 5.0 g/dL Normal 3.6-5.1 [facility] Comment on above: Performed By: #### 1 0231, 7137, 5616, 1005, 899, 6399 #### [facility] of [place] [address] Clinical Engineering Director: Gage Viramontes MD Albumin/Globulin [Mass ratio] 1.9 {ratio} Normal 1.0-2.5 [facility] Comment on above: Performed By: #### 1 0231, 7137, 5616, 1005, 899, 6399 #### [facility] of [place] [address] Clinical Engineering Director: Gage Viramontes MD ALP [Catalytic activity/Vol] 93 U/L Normal 31-125 [facility] Comment on above: Performed By: #### 1 0231, 7137, 5616, 1005, 899, 6399 #### [facility] of [place] [address] Clinical Engineering Director: Gage Viramontes MD ALT [Catalytic activity/Vol] 27 U/L Normal 6-29 [facility] Comment on above: Performed By: #### 1 0231, 7137, 5616, 1005, 899, 6399 #### [facility] of [place] [address] Clinical Engineering Director: Gage Viramontes MD AST [Catalytic activity/Vol] 21 U/L Normal 10-30 [facility] Comment on above: Performed By: #### 1 0231, 7137, 5616, 1005, 899, 6399 #### [facility] of [address], [address] [place] [address] Clinical Engineering Director: Gage Viramontes MD Bilirubin [Mass/Vol] 0.6 mg/dL Normal 0.2-1.2 [facility] Comment on above: Performed By: #### 1 0231, 37, 5616, 1005, 89, 6399 #### [facility] of [address], [address] [place] [address] Clinical Engineering Director: aGge Viramontes MD BUN/CREATININE RATIO SEE NOTE: Normal 6-22 [facility] Comment on above: Result Comment: Not Reported: BUN and Creatinine are within reference range. Performed By: #### 1 0231, 7137, 5616, 1005, 899, 6399 #### [facility] [place] [address] Clinical Engineering Director: Gage Viramontes MD Calcium [Mass/Vol] 9.8 mg/dL Normal 8.6-10.2 [facility] Comment on above: Performed By: #### 1 0231, 71, 5616, 1005, 899, 6399 #### [facility] of [place] [address] Clinical Engineering Director: Gage Viramontes MD Chloride [Moles/Vol] 108 mmol/L Normal 98-110 [facility] Comment on above: Performed By: #### 1 0231, 7137, 5616, 1005, 899, 6399 #### [facility] of [place] [address] Clinical Engineering Director: Gage Viramontes MD CO2 [Moles/Vol] 22 mmol/L Normal 20-32 [facility] Comment on above: Performed By: #### 1 0231, 7137, 5616, 1005, 899, 6399 #### [facility] [place] [address] Clinical Engineering Director: Gage Viramontes MD Creatinine [Mass/Vol] 0.77 mg/dL Normal 0.50-0.[address] [facility] Comment on above: Performed By: #### 1 0231, 7137, 5616, 1005, 899, 6399 #### [facility] [place] [address] Clinical Engineering Director: Gage Viramontes MD GFR/1.73 sq M.predicted among non-blacks MDRD (S/P/Bld) [Vol rate/Area] 97 mL/min/{1.73_m2} Normal > OR = 60 [facility] Comment on above: Performed By: #### 1 0231, 7136, 561, 1005, 899, 6399 #### [facility] [place] [address] Clinical Engineering Director: Gage Viramontes MD Globulin (S) [Mass/Vol] 2.6 g/dL Normal 1.9-3.7 [facility] Comment on above: Performed By: #### 1 0231, 7136, 561, 1005, 899, 6399 #### [facility] [place] [address] Clinical Engineering Director: Gage Viramontes MD Glucose [Mass/Vol] 82 mg/dL Normal 65-99 [facility] Comment on above: Result Comment: Fasting reference interval Performed By: #### 1 0231, 7137, 5616, 1005, 899, 6399 #### [facility] [place] [address] Clinical Engineering Director: Gage Viramontes MD Potassium [Moles/Vol] 3.9 mmol/L Normal 3.5-5.[address] [facility] Comment on above: Performed By: #### 1 0231, 7137, 5616, 1005, 899, 6399 #### [facility] of [place] [address] Clinical Engineering Director: Gage Viramontes MD Protein [Mass/Vol] 7.6 g/dL Normal 6.1-8.1 [facility] Comment on above: Performed By: #### 1 0231, 7137, 5616, 1005, 899, 6399 #### [facility] [place] [address] Clinical Engineering Director: Gage Viramontes MD Sodium [Moles/Vol] 138 mmol/L Normal 135-146 [facility] Comment on above: Performed By: #### 1 0231, 7137, 5616, 1005, 899, 6399 #### [facility] [place] [address] Clinical Engineering Director: Gage Viramontes MD Urea nitrogen [Mass/Vol] 12 mg/dL Normal - [facility] Comment on above: Performed By: #### 1 0231, 7137, 5616, 1005, 899, 6399 #### [facility] [place] [address] Clinical Engineering Director: Gage Viramontes MD FSH AND LHon 01-06-2024 FSH 3.7 mIU/mL Normal [facility] Comment on above: Result Comment: Refe rence Range Follicular Phase 2.5-10.2 Mid-cycle Peak 3.1-17.7 Luteal Phase 1.5- 9.1 Postmenopausal 23.0-116.3 Performed By: #### 1 0231, 7137, 5616, 1005, 899, 6399 #### [facility] [place] [address] Clinical Engineering Director: Gage Viramontes MD LH 3.0 mIU/mL Normal [facility] Comment on above: Result Comment: Refe rence Range Follicular Phase 1.9-12.5 Mid-Cycle Peak 8.7-76.3 Luteal Phase 0.5-16.9 Postmenopausal 10.0-54.7 Performed By: #### 1 0231, 7137, 5616, 1005, 899, 6399 #### [facility] of [address], [address] [place] [address] Clinical Engineering Director: Gage Viramontes MD IRON[facility] % SATURATION 37 % (calc) Normal 16-45 [facility] Comment on above: Performed By: #### 1 0231, 7137, 5616, 1005, 899, 6399 #### [facility] of [address], [address] [place] [address] Clinical Engineering Director: Gage Viramontes MD Ferritin [Mass/Vol] 73 ng/mL Normal 16-232 [facility] Comment on above: Performed By: #### 1 0231, 7137, 5616, 1005, 899, 6399 #### [facility] of [address], [address] [place] [address] Clinical Engineering Director: Gage Viramontes MD IRON BINDING CAPACITY 340 mcg/dL (calc) Normal 250-450 [facility] Comment on above: Performed By: #### 1 0231, 7137, 5616, 1005, 899, 6399 #### [facility] of [place] [address] Clinical Engineering Director: Gage Viramontes MD IRON, TOTAL 125 mcg/dL Normal 40-190 [facility] Comment on above: Performed By: #### 1 0231, 7137, 5616, 1005, 899, 6399 #### [facility] of [place] [address] Clinical Engineering Director: Gage Viramontes MD TEST AUTHORIZATIONon 024 CLIENT CONTACT: CRYSTAL Normal [facility] Comment on above: Performed By: #### 1 0231, 7137, 5616, 1005, 899, 6399 #### [facility] of [place] [address] Clinical Engineering Director: Gage Viramontes MD COMMENT Normal [facility] Comment on above: Result Comment: Plea se have the ordering physician or his or her authorized u.s. representative sign a copy of this report and promptly return it by faxing it to: [phone] or by returning the form to your communication consultant. Performed By: #### 1 0231, 7137, 5616, 1005, 899, 6399 #### [facility] [place] [address] Clinical Engineering Director: Gage Viramontes MD REPORT ALWAYS MESSAGE SIGNATURE Normal [facility] Comment on above: Result Comment: The laboratory testing on this patient was verbally requested or confirmed by the ordering physician or his or her authorized u.s. representative after contact with an employee of [facility]. Federal regulations require that we maintain on file written authorization for all laboratory testing. Accordingly we are asking that the ordering physician or his or her authorized u.s. representative sign a copy of this report and promptly return it to the client portfolio manager. Signature: _ Performed By: #### 1 0231, 7137, 5616, 1005, 899, 6399 #### [facility] [place] [address] Clinical Engineering Director: Gage Viramontes MD TEST CODE: [id number] Normal [facility] Comment on above: Performed By: #### 1 0231, 7137, 5616, 1005, 899, 6399 #### [facility] [place] [address] Clinical Engineering Director: Gage Viramontes MD TEST NAME: CMP Normal [facility] Comment on above: Performed By: #### 1 0231, 7137, 5616, 1005, 899, 6399 #### [facility] [place] [address] Clinical Engineering Director: Gage Viramontes MD TSHon 01-06-2024 TSH Qn 0.95 m[IU]/L Normal [facility] Comment on above: Result Comment: Refe rence Range > or = 20 Years 0.40-4.50 Ranges First trimester 0.26-2.66 Second trimester 0.55-2.73 Third trimester 0.43-2.91 Performed By: #### 1 0231, 1037, 5616, 1005, 899, 6399 #### [facility] [address] [facility], [address] [place] [address] Clinical Engineering Director: Gage Viramontes MD Final Surgical Pathology Rep [facility] 11-01-2023 Final Surgical Pathology Report . Pathology Reports Accession: Collected Date/Time: Received Date/Time: Pathologist: [id number] 10/31/2023 10:23 EDT 10/31/2023 14:26 EDT MD [...] All parts labelled with patient name and [id number] A. Received in formalin labeled terminal ileum are 2 maharaj-pink tissue fragments each measuring 0.2 cm. TS-1 B. Received in formalin labeled right and left colon are multiple maharaj-pink tissue fragments aggregating 1.3 x 0.2 x 0.2 cm. TS-1 Flakita Rodrigez, Grossing Morning Caregiver/ Dr. Nabor Jarrett, Pathologist Performed by Flakita Rodrigez MICROSCOPIC DESCRIPTION: The microscopic examination is performed, except in the case of Gross Only. Electronically Signed by Pathology Report verified by [facility] KAYLYN PELAYO MD Sign out Date: 11/01/2023 09:26 Performing Lab: [facility], [address] [place] [address] Pathology Dept Disclaimer If ancillary studies were utilized, the following Laboratory Developed Test (LDT) disclaimer will apply: Under CLIA requirements, [facility] is qualified to perform high complexity testing. For all ancillary stains, positive and negative controls stain appropriately. Performance characteristics of immunohistochemical and chromogenic in-situ hybridization tests have been determined by [facility]. These tests are used for clinical purposes, They should not be regarded as investigational or for research. Normal [facility] ([place]) Absolute lymphocyte countOrd ered By: Suman Lowe on 07-04-2023 Lymphocytes Auto (Unsp spec) [#/Vol] 1.65 10*3/uL 0.83-4.51 [facility] Automated lymphocyte count a s percentage of total leukocytesOrdered By: Suman Lowe on 07-04-2023 Lymphocytes/100 WBC Auto (Unsp spec) 19.6 % 19-41 [facility] Basophil percentageOrdered B y: Suman Lowe on 07-04-2023 Basophil percentage 0-5 SEEN /hpf 0-5 [place] Basophils/100 WBC (Bld) 0.8 % 0-1 [facility] Bilirubin [Mass/Vol] 0.60 mg/dL 0.20-1.00 [facility] Comment on above: For patients on eltr ombopag therapy, use of Dimension Ball TBIL is not recommended. Chloride [Moles/Vol] 107 mmol/L 98-107 [facility] Eosinophils/100 WBC (Bld) 1.5 % 0-5 [facility] Glucose [Mass/Vol] 105 mg/dL 74-106 [facility] Comment on above: Fasting Glucose resu lt from 100 to 125 mg/dL suggests IMPAIRED HOMEOSTASIS per A.D.A. criteria. Hemoglobin (Bld) [Mass/Vol] 13.6 g/dL 12.0-15.0 [facility] Monocytes/100 WBC (Bld) 6.1 % 0-10 [facility] Neutrophils (Bld) [#/Vol] 6.0 10*3/uL 2.0-7.7 [facility] Neutrophils/100 WBC (Bld) 71.6 % 47-70 [facility] Potassium [Moles/Vol] 4.0 mmol/L 3.5-5.1 [facility] Comment on above: Moderate Hemolysis, Result may be falsely increased. Protein [Mass/Vol] 7.1 g/dL 6.4-8.2 [facility] Sodium [Moles/Vol] 137 mmol/L 136-145 [facility] WBC (Bld) [#/Vol] 8.4 10*3/uL 4.4-11.0 [facility] Bilirubin Test strip Ql (U)O rdered By: Suman Lowe on 07-04-2023 Bilirubin Ql (U) Negative Negative [facility] Determination of erythrocyte mean corpuscular volume (MCV)Ordered By: Suman Lowe on 07-04-2023 MCV (RBC) [Entitic vol] 97.7 fL 81-99 [facility] Erythrocyte distribution wid th ratioOrdered By: Suman Lowe on 07-04-2023 Erythrocyte distribution width (RBC) [Ratio] 13.2 % 11.6-14.6 [facility] Erythrocyte distribution wid th standard deviationOrdered By: Suman Lowe on 07-04-2023 Erythrocyte distribution width (RBC) [Entitic vol] 47.3 fL 35.1-43.9 [facility] Hematocrit Auto (Bld) [Volum e fraction]Ordered By: Suman Lowe on 07-04-2023 Hematocrit (Bld) [Volume fraction] 42.3 % 37-47 [facility] Immature granulocytes/100 WB C Auto (Bld)Ordered By: Suman Lowe on 07-04-2023 Immature granulocytes/100 WBC (Bld) 0.400 % 0.0-0.9 [facility] Comment on above: IG% - Immature Granu locytes (promyelocytes, myelocytes and metamyelocytes) > 1% indicates that a LEFT SHIFT is Present. Ketones Test strip Ql (U)Ord ered By: Suman Lowe on 07-04-2023 Ketones Ql (U) Negative Negative [facility] Laboratory - Chemistry and C hemistry - challengeOrdered By: Suman Lowe on 07-04-2023 Albumin/Globulin [Mass ratio] 1.2 {ratio} 0.9-2.4 [facility] ALP [Catalytic activity/Vol] 97 U/L 45-117 [facility] ALT [Catalytic activity/Vol] 29 U/L 13-56 [facility] CO2 [Moles/Vol] 24.0 mmol/L 21.0-32.0 [facility] Globulin (S) [Mass/Vol] 3.2 g/dL 2.2-4.2 [facility] Lipase [Catalytic activity/Vol] 16 U/L 13-75 [facility] Comment on above: Please note:LIPASE r evised reference range effective 22. New Lipase methodology. Expected to produce lower values than the previous assay method. NEW Reference Range: 13 - 75 U/L Urea nitrogen/Creatinine [Mass ratio] 11.1 mg/mg 10-20 [facility] Laboratory - Hematology and Cell countsOrdered By: Suman Lowe on 07-04-2023 MCH (RBC) [Entitic mass] 31.4 pg 27.0-32.0 [facility] MCHC (RBC) [Mass/Vol] 32.2 g/dL 32-36 [facility] Nucleated RBC/100 WBC (Bld) [Ratio] 0 % 0-5 [facility] Platelet mean volume (Bld) [Entitic vol] 12.0 fL 6.2-12.0 [facility] Platelets (Bld) [#/Vol] 195 10*3/uL 150-450 [facility] Mucus LM Ql (Urine sed)Order ed By: Suman Lowe on 07-04-2023 Mucus Ql (Urine sed) 0 SEEN /hpf [facility] Nitrite Test strip Ql (U)Ord ered By: Suman Lowe on 07-04-2023 Nitrite Ql (U) Negative Negative [facility] No Panel InformationOrdered By: Suman Lowe on 07-04-2023 Urine RBC 10-25 SEEN /hpf 0-5 [facility] Estimated Creatinine Clearance Calc 77.33 ml/min [facility] Estimated GFR (MDRD) Amer 99 mL/min >60 [facility] Comment on above: GFR Calc Estimated GFR (MDRD) Non-Af Amer 82 mL/min >60 [facility] Comment on above: Non- GFR Calc Protein Test strip Ql (U)Ord ered By: Suman Lowe on 07-04-2023 Protein Ql (U) 15 mg/dl Negative [facility] RBC Auto (Bld) [#/Vol]Ordere d By: Suman Lowe on 07-04-2023 RBC (Bld) [#/Vol] 4.33 10*6/uL 4.2-5.4 [facility] Serum or plasma calcium leslie urement (mass/volume)Ordered By: Suman Lowe on 07-04-2023 Calcium [Mass/Vol] 8.9 mg/dL 8.5-10.1 [facility] Serum or plasma choriogonado tropin detectionOrdered By: Suman Lowe on 07-04-2023 HCG ( test) Ql Negative [facility] Serum or plasma creatinine m easurement (mass/volume)Ordered By: Suman Lowe on 07-04-2023 Creatinine [Mass/Vol] 0.81 mg/dL 0.55-1.02 [facility] Comment on above: The validity of the calculated GFR & GFRAA in patients over 70 years has not been determined. Clinical correlation is essential. Serum or plasma urea nitroge n measurement (mass/volume)Ordered By: Suman Lowe on 07-04-2023 Urea nitrogen [Mass/Vol] 9 mg/dL 7-18 [facility] Squamous epithelial cells de tection in urine sediment by light microscopyOrdered By: Suman Lowe on 07-04-2023 Epithelial cells.squamous LM Ql (Urine sed) 0-5 SEEN /hpf 5-10 [facility] Thin prep Papanicolaou smear with manual screeningOrdered By: Suman Lowe on 07-04-2023 Thin prep Papanicolaou smear with manual screening 3.9 g/dL 3.2-5.0 [facility] Thin prep Papanicolaou smear with manual screening 24 U/L 15-37 [facility] Comment on above: Moderate Hemolysis, Result may be falsely increased. Thin prep Papanicolaou smear with manual screening 6 5-15 [facility] Urine blood detectionOrdered By: Suman Lowe on 07-04-2023 RBC Ql (U) 150 /ul Negative [facility] Urine clarityOrdered By: Malgorzata Lowe on 07-04-2023 Clarity (U) Clear Clear [facility] Urine color determinationOrd ered By: Suman Lowe on 07-04-2023 Color (U) Yellow Yellow [facility] Urine glucose detectionOrder ed By: Suman Lowe on 07-04-2023 Glucose Ql (U) Normal mg/dl Normal [facility] Urine leukocyte esterase det ection by dipstickOrdered By: Suman Lowe on 07-04-2023 Leukocyte esterase Test strip Ql (U) 25 /ul Negative [facility] Urine pHOrdered By: Suman maya on 07-04-2023 pH (U) 7.0 [pH] 5.0 - 8.0 [facility] Urine sediment bacteria coun t by microscopy (number/high power field)Ordered By: Suman Lowe on 07-04-2023 Bacteria LM.HPF (Urine sed) [#/Area] RARE /hpf None Seen [facility] Urine specific gravity measu rementOrdered By: Suman Lowe on 07-04-2023 Specific gravity (U) [Rel density] 1.010 1.002-1.03 0 [facility] Urine urobilinogen measureme ntOrdered By: Suman Lowe on 07-04-2023 Urobilinogen Ql (U) Normal mg/dl Normal [facility] No Panel InformationOrdered By: Babar Wood on 12-26-2022 Troponin I High Sensitivity 48 pg/mL 3.0-54.0 [facility] Comment on above: Please Note: New Linh t Units and Gender Specific Reference Ranges. For more information see Policy Stat Procedure Ball High Sensitivity Troponin (TNIH) and attachments. Absolute lymphocyte countOrd ered By: Babar Wood on 12-25-2022 Lymphocytes Auto (Unsp spec) [#/Vol] 1.77 10*3/uL 0.83-4.51 [facility] Basophil percentageOrdered B y: Babar Wood on 12-25-2022 Basophils/100 WBC (Bld) 0.6 % 0-1 [facility] Chloride [Moles/Vol] 110 mmol/L 98-107 [facility] Eosinophils/100 WBC (Bld) 1.1 % 0-5 [facility] Glucose [Mass/Vol] 100 mg/dL 74-106 [facility] Comment on above: Fasting Glucose resu lt from 100 to 125 mg/dL suggests IMPAIRED HOMEOSTASIS per A.D.A. criteria. Neutrophils (Bld) [#/Vol] 9.1 10*3/uL 2.0-7.7 [facility] Neutrophils/100 WBC (Bld) 78.0 % 47-70 [facility] Potassium [Moles/Vol] 4.2 mmol/L 3.5-5.1 [facility] Comment on above: Slight Hemolysis, Re sult may be falsely increased. Sodium [Moles/Vol] 140 mmol/L 136-145 [facility] WBC (Bld) [#/Vol] 11.7 10*3/uL 4.4-11.0 [facility] Blood erythrocytes count (nu mber/volume)Ordered By: Babar Wood on 12-25-2022 RBC (Bld) [#/Vol] 4.15 10*6/uL 4.2-5.4 [facility] Blood hemoglobin measurement (mass/volume)Ordered By: Babar Wood on 12-25-2022 Hemoglobin (Bld) [Mass/Vol] 13.1 g/dL 12.0-15.0 [facility] Blood lymphocytes/100 leukoc ytesOrdered By: Babar Wood on 12-25-2022 Lymphocytes/100 WBC (Bld) 15.2 % 19-41 [facility] Blood monocytes/100 leukocyt esOrdered By: Babar Wood on 12-25-2022 Monocytes/100 WBC (Bld) 4.8 % 0-10 [facility] Blood platelet mean volumeOr dered By: Babar Wood on 12-25-2022 Platelet mean volume (Bld) [Entitic vol] 10.7 fL 6.2-12.0 [facility] Determination of erythrocyte mean corpuscular volume (MCV)Ordered By: Babar Wood on 12-25-2022 MCV (RBC) [Entitic vol] 97.3 fL 81-99 [facility] Hematocrit Auto (Bld) [Volum e fraction]Ordered By: Babar Wood on 12-25-2022 Hematocrit (Bld) [Volume fraction] 40.4 % 37-47 [facility] INR in Blood by Coagulation assayOrdered By: Babar Wood on 12-25-2022 INR Coag (Bld) [Relative time] 1.1 {INR} [facility] Laboratory - Chemistry and C hemistry - challengeOrdered By: Babar Wood on 12-25-2022 CO2 [Moles/Vol] 24.0 mmol/L 21.0-32.0 [facility] Magnesium [Mass/Vol] 2.0 mg/dL 1.6-2.6 [facility] Comment on above: Slight Hemolysis, Re sult may be falsely increased. Urea nitrogen/Creatinine [Mass ratio] 13.0 mg/mg 10-20 [facility] Laboratory - CoagulationOrde red By: Babar Wood on 12-25-2022 aPTT Coag (Bld) [Time] 33.7 s 24.1-36.2 [place] PT Coag (PPP) [Time] 14.1 s 11.7-14.9 [facility] Laboratory - Hematology and Cell countsOrdered By: Babar Wood on 12-25-2022 Erythrocyte distribution width (RBC) [Entitic vol] 48.4 fL 35.1-43.9 [facility] Erythrocyte distribution width (RBC) [Ratio] 13.5 % 11.6-14.6 [facility] Immature granulocytes/100 WBC (Bld) 0.300 % 0.0-0.9 [facility] Comment on above: IG% - Immature Granu locytes (promyelocytes, myelocytes and metamyelocytes) > 1% indicates that a LEFT SHIFT is Present. MCH (RBC) [Entitic mass] 31.6 pg 27.0-32.0 [facility] Nucleated RBC/100 WBC (Bld) [Ratio] 0 % 0-5 [facility] MCHC Auto (RBC) [Mass/Vol]Or dered By: Babar Wood on 12-25-2022 MCHC (RBC) [Mass/Vol] 32.4 g/dL 32-36 [facility] No Panel InformationOrdered By: Babar Wood on 12-25-2022 D-Dimer Quantitative (PE/DVT) 0.65 FEU/ug/m 0.27-0.49 [facility] Comment on above: CRITICAL VALUE VERIF IED. CALLED TO LUANA GARCIA RN [id number] [facility].RESULTS READ BACK BY SAME . D-Dimer ELEVATED (>0.49): Additional studies and clinicalassessments are indicated to conclude diagnosis of:Deep Vein Thrombosis (DVT) or Pulmonary Embolism (PE) Estimated Creatinine Clearance Calc 62.64 ml/min [facility] Estimated GFR (MDRD) Amer 78 mL/min >60 [facility] Comment on above: GFR Calc Estimated GFR (MDRD) Non-Af Amer 64 mL/min >60 [facility] Comment on above: Non- GFR Calc Platelets bldOrdered By: Sarath Wood on 12-25-2022 Platelets (Bld) [#/Vol] 271 10*3/uL 150-450 [facility] Serum or plasma calcium leslie urement (mass/volume)Ordered By: Babar Wood on 12-25-2022 Calcium [Mass/Vol] 8.9 mg/dL 8.5-10.1 [facility] [place] [place] Serum or plasma creatinine m easurement (mass/volume)Ordered By: Babar Wood on 12-25-2022 Creatinine [Mass/Vol] 1.00 mg/dL 0.55-1.02 [facility] Comment on above: The validity of the calculated GFR & GFRAA in patients over 70 years has not been determined. Clinical correlation is essential. Serum or plasma urea nitroge n measurement (mass/volume)Ordered By: Babar Wood on 12-25-2022 Urea nitrogen [Mass/Vol] 13 mg/dL 7-18 [facility] Thin prep Papanicolaou smear with manual screeningOrdered By: Babar Wood on 12-25-2022 Thin prep Papanicolaou smear with manual screening 6 5-15 [facility] No Panel Informationon 12-17 Troponin I High Sensitivity 41 pg/mL 3.0-54.0 [facility] Work Phone: Comment on above: Please Note: New Linh t Units and Gender Specific Reference Ranges. For more information see Policy Stat Procedure Ball High Sensitivity Troponin (TNIH) and attachments. Absolute lymphocyte counton 12-16-2021 Lymphocytes Auto (Unsp spec) [#/Vol] 0.93 10*3/uL 0.83-4.51 [facility] Work Phone: Basophil percentageon 2021 Basophils/100 WBC (Bld) 0.7 % 0-1 [facility] Work Phone: Chloride [Moles/Vol] 108 mmol/L 98-107 [facility] Work Phone: Eosinophils/100 WBC (Bld) 1.2 % 0-5 [facility] Work Phone: Glucose [Mass/Vol] 114 mg/dL 74-106 [facility] Work Phone: Comment on above: Fasting Glucose resu lt from 100 to 125 mg/dL suggests IMPAIRED HOMEOSTASIS per A.D.A. criteria. Neutrophils (Bld) [#/Vol] 8.7 10*3/uL 2.0-7.7 [facility] Work Phone: Neutrophils/100 WBC (Bld) 78.7 % 47-70 [facility] Work Phone: [phone] Potassium [Moles/Vol] 4.2 mmol/L 3.5-5.1 [facility] Work Phone: Comment on above: Moderate Hemolysis, Result may be falsely increased. Sodium [Moles/Vol] 138 mmol/L 136-145 [facility] Work Phone: WBC (Bld) [#/Vol] 11.1 10*3/uL 4.4-11.0 [facility] Work Phone: Blood erythrocytes count (nu mber/volume)on 12-16-2021 RBC (Bld) [#/Vol] 4.49 10*6/uL 4.2-5.4 [facility] Work Phone: Blood hemoglobin measurement (mass/volume)on 12-16-2021 Hemoglobin (Bld) [Mass/Vol] 14.4 g/dL 12.0-15.0 [facility] Work Phone: Blood lymphocytes/100 leukoc yteson 12-16-2021 Lymphocytes/100 WBC (Bld) 8.4 % 19-41 [facility] Work Phone: Blood monocytes/100 leukocyt eson 12-16-2021 Monocytes/100 WBC (Bld) 10.1 % 0-10 [facility] Work Phone: Blood platelet mean volumeon 12-16-2021 Platelet mean volume (Bld) [Entitic vol] 11.5 fL 6.2-12.0 [facility] Work Phone: [phone] Determination of erythrocyte mean corpuscular volume (MCV)on 12-16-2021 MCV (RBC) [Entitic vol] 97.1 fL 81-99 [facility] Work Phone: [phone] Hematocrit Auto (Bld) [Volum e fraction]on 12-16-2021 Hematocrit (Bld) [Volume fraction] 43.6 % 37-47 [facility] Work Phone: [phone] Laboratory - Chemistry and C hemistry - challengeon 12-16-2021 CO2 [Moles/Vol] 24.0 mmol/L 21.0-32.0 [facility] Work Phone: [phone] Urea nitrogen/Creatinine [Mass ratio] 17.6 mg/mg 10-20 [facility] Work Phone: [phone] Laboratory - Hematology and Cell countson 12-16-2021 Erythrocyte distribution width (RBC) [Entitic vol] 46.6 fL 35.1-43.9 [facility] Work Phone: [phone] Erythrocyte distribution width (RBC) [Ratio] 13.0 % 11.6-14.6 [facility] Work Phone: [phone] Immature granulocytes/100 WBC (Bld) 0.900 % 0.0-0.9 [facility] Work Phone: [phone] Comment on above: IG% - Immature Granu locytes (promyelocytes, myelocytes and metamyelocytes) > 1% indicates that a LEFT SHIFT is Present. MCH (RBC) [Entitic mass] 32.1 pg 27.0-32.0 [facility] Work Phone: [phone] Nucleated RBC/100 WBC (Bld) [Ratio] 0 % 0-5 [facility] Work Phone: [phone] MCHC Auto (RBC) [Mass/Vol]on 12-16-2021 MCHC (RBC) [Mass/Vol] 33.0 g/dL 32-36 [facility] Work Phone: [phone] No Panel Informationon 12-16 Estimated Creatinine Clearance Calc 74.45 ml/min [facility] Work Phone: Estimated GFR (MDRD) Amer 94 mL/min >60 [facility] Work Phone: Comment on above: GFR Calc Estimated GFR (MDRD) Non-Af Amer 77 mL/min >60 [facility] Work Phone: Comment on above: Non- GFR Calc Platelets bldon 12-16-2021 Platelets (Bld) [#/Vol] 227 10*3/uL 150-450 [facility] Work Phone: Serum or plasma calcium leslie urement (mass/volume)on 12-16-2021 Calcium [Mass/Vol] 9.5 mg/dL 8.5-10.1 [facility] Work Phone: Serum or plasma creatinine m easurement (mass/volume)on 12-16-2021 Creatinine [Mass/Vol] 0.85 mg/dL 0.55-1.02 [facility] Work Phone: Comment on above: The validity of the calculated GFR & GFRAA in patients over 70 years has not been determined. Clinical correlation is essential. Serum or plasma urea nitroge n measurement (mass/volume)on 12-16-2021 Urea nitrogen [Mass/Vol] 15 mg/dL 7-18 [facility] Work Phone: Thin prep Papanicolaou smear with manual screeningon 12-16-2021 Thin prep Papanicolaou smear with manual screening 6 5-15 [facility] Work Phone: CNDSon 04-27-2021 CNDS HNO ID: [id number] Author: Aj Mullins MD Service: Hospital Medicine [...] Attending Provider: Aj Mullins MD Primary Service: [place] [address] REASON FOR HOSPITALIZATION: Chest pain SOB Acute [...] patient was then transferred and admitted to [facility] for further evaluation and management Lasix [...] not cleared for the discharge by the sales communications manager Pt. Left the hospital in the evening [...] Ativan [Lorazepam] Vomiting - Azithromycin Intolerance - [place] Anaphylaxis - Fish Anaphylaxis - Levofloxacin In [...] Normal, Disp (more content not included)... Normal [facility] Basic Metabolic Panlon 04-26 Anion gap [Moles/Vol] 12 mmol/L Normal 9-18 [facility] Comment on above: Performed By: #### B FRANKLIN DE LA TORRE, CBC ####[place] [phone] Calcium [Mass/Vol] 9.0 mg/dL Normal 8.5-10.5 [facility] Comment on above: Performed By: #### B FRANKLIN DE LA TORRE, CBC ####[place] [phone] Chloride [Moles/Vol] 103 mmol/L Normal 98-110 [facility] Comment on above: Performed By: #### B FRANKLIN DE LA TORRE, CBC ####[place] [phone] CO2 [Moles/Vol] 21 mmol/L Low 23-32 [facility] Comment on above: Performed By: #### B FRANKLIN DE LA TORRE, CBC ####[place] [phone] Creatinine [Mass/Vol] 0.73 mg/dL Normal 0.70-1.40 [facility] Comment on above: Performed By: #### B FRANKLIN DE LA TORRE, CBC ####[place] [phone] eGFR- Amer. >60 Normal >59 [facility] Comment on above: Performed By: #### B FRANKLIN DE LA TORRE, CBC ####[place] [phone] eGFR-All Other Races >60 Normal >59 [facility] Comment on above: Result Comment: eGFR (Estimated [...] website at kidney.org/professionals/kdoqi/gfr_calculator. Performed By: #### B BRITT LIPB, CBC ####[place] [phone] Glucose [Mass/Vol] 87 mg/dL Normal 65-100 [facility] Comment on above: Performed By: #### B BRITT LIPB, CBC ####[place] [phone] Potassium [Moles/Vol] 3.7 mmol/L Normal 3.5-5.0 [facility] Comment on above: Performed By: #### B BRITT LIPB, CBC ####[phone] Sodium [Moles/Vol] 136 mmol/L Normal 132-148 [facility] Comment on above: Performed By: #### B BRITT LIPB, CBC ####[place] [phone] Urea nitrogen [Mass/Vol] 11 mg/dL Normal 8-25 [facility] Comment on above: Performed By: #### B MP, LIPB, CBC ####[place] [phone] CBCon 04-26-2021 Absolute nRBC <0.01 Normal <0.01 [facility] Comment on above: Performed By: #### B MP, LIPB, CBC ####[place] [phone] Erythrocyte distribution width (RBC) [Ratio] 13.3 % Normal 11.5-15.0 [facility] Comment on above: Performed By: #### B MP, LIPB, CBC ####[place] [address] Hematocrit (Bld) [Volume fraction] 38.6 % Normal 36.0-46.0 [facility] Comment on above: Performed By: #### B MP, LIPB, CBC ####[place] [address] Hemoglobin (Bld) [Mass/Vol] 12.5 g/dL Normal 11.5-15.5 [facility] Comment on above: Performed By: #### B MP, LIPB, CBC ####[place] [address] MCH 31.2 pG Normal 26.0-34.0 [facility] Comment on above: Performed By: #### B MP, LIPB, CBC ####[place] [address] MCHC (RBC) [Mass/Vol] 32.4 g/dL Normal 30.5-36.0 [facility] Comment on above: Performed By: #### B MP, LIPB, CBC ####[place] [address] MCV (RBC) [Entitic vol] 96.3 fL Normal 80.0-100.0 [facility] Comment on above: Performed By: #### B MP, LIPB, CBC ####[place] [address] Platelet mean volume (Bld) [Entitic vol] 11.7 fL Normal 9.0-12.7 [facility] Comment on above: Performed By: #### B MP, LIPB, CBC ####[address] Platelets (Bld) [#/Vol] 209 10*3/uL Normal 150-400 [facility] Comment on above: Performed By: #### B MP, LIPB, CBC ####[place] [phone] RBC (Bld) [#/Vol] 4.01 10*6/uL Normal 3.90-5.20 [facility] Comment on above: Performed By: #### B MP, LIPB, CBC ####[place] [phone] WBC (Bld) [#/Vol] 7.40 10*3/uL Normal 3.70-11.00 [facility] Comment on above: Performed By: #### B MP, LIPB, CBC ####[place] [phone] CK, Total and CKMBon 022 CK [Catalytic activity/Vol] 50 U/L Normal 30-220 [facility] Comment on above: Performed By: #### C KCKMB, SAULO #### [place] [address] CK MB % CK MB % not reported with CK <100 U/L. Normal 0.0-4.0 [facility] Comment on above: Performed By: #### C KCKMB, SAULO #### [place] [address] MB 3.6 ng/mL Normal 0.0-8.8 [facility] Comment on above: Performed By: #### C KCKMB, SAULO #### [place] [address] CONSULTon 04-26-2021 CONSULT HNO ID: [id number] Author: Tyrel Lane MD Service: Electrophysiology Author [...] will be no charge for this consultation. [facility] CONSULT PROGon 04-26-2021 CONSULT PROG HNO ID: [id number] Author: Gavino Zaragoza MD Service: Cardiovascular Medicine [...] prior echocardiographic exam performed on 01/18/2017 (MICKI, [facility]). CTPE 04/25/2021: IMPRESSION: 1. ?Negative [...] mild LV dysfunction, will ask patient's outpatient [facility] sales communications manager who manages her HCM to evaluate and [...] 26, 2021 TIME: 2:38 PM PAGER/CONTACT #: [phone] For communication after 5 pm on weekdays and after 12 pm on weekends, please page the following: - [facility] consult : page [phone] - [facility] consult: page [phone] - [facility] Cardiology consult: page [phone] [facility] STAFF PHYSICIAN NOTE OF PERSONAL INVOLVE (more content not included)... Normal [facility] Lipid Panel, Basic04-26- 022 Cholesterol [Mass/Vol] 149 mg/dL Normal <200 [facility] Comment on above: Performed By: #### B MP, LIPB, CBC ####[place] [phone] Cholesterol in HDL [Mass/Vol] 31 mg/dL Low >39 [facility] Comment on above: Performed By: #### B MP, LIPB, CBC ####[place] [phone] Cholesterol in LDL [Mass/Vol] 102 mg/dL High <100 [facility] Comment on above: Performed By: #### B MP, LIPB, CBC ####[place] [phone] LDL:HDL Ratio 3.29 High <2.54 [facility] Comment on above: Performed By: #### B MP, LIPB, CBC ####[place] [address] Non HDL Cholesterol 118 mg/dL Normal <130 [facility] Comment on above: Performed By: #### B MP, LIPB, CBC ####[place] [address] TC:HDL Ratio 4.81 Normal <5.10 [facility] Comment on above: Performed By: #### B MP, LIPB, CBC ####[place] [address] Triglyceride [Mass/Vol] 82 mg/dL Normal <150 [facility] Comment on above: Performed By: #### B MP, LIPB, CBC ####[place] [address] VLDL Cholesterol 16 mg/dL Normal <30 [facility] Comment on above: Performed By: #### B MP, LIPB, CBC ####[place] [address] NURSING PROGon 04-26-2021 NURSING PROG HNO ID: [id number] Author: Vance Everett RN Service: ? Author Type: Registered Nurse Type: Nursing Progress Note Filed: 04/26/2021 8:46 PM Note Text: Nursing Progress Note Patient Name: Michelle Mitchell [facility] Daily Note: Michelle Cano, 5 pav 558-2, pt complaining of 8/10 chest pain, states no relief from tylenol. Requesting alternative. Dontrell -Devonte [phone] 203Michelle Moreland, 5 pav 558-2, pt states son in car accident, patient leaving AMA when able to pick her up. Dontrell Lissette [phone] - Michelle Mitchell, 5 pav 558-2 pt asking if she can have script for Lasix prior to leaving to be compliant with treatment. Thanks -Devonte [phone] This note was completed by: Vance Everett [facility] NURSING PROG HNO ID: [id number] Author: Kendal Strange RN Service: ? Author Type: Registered Nurse Type: Nursing Progress Note Filed: 04/26/2021 4:23 PM Note Text: Nursing Progress Note Patient Name: Michelle Mitchell Patient Location: [place] [address]/[place] [id number] 10-13 0929 Pt sitting up in bed, c/o chest pain, however denies dizziness, 98% room air. Administered Tylenol and Xanax as ordered, however pt is sobbing stating, feels like someone sitting on my chest. Released STAT EKG, vital signs obtained. BP 112/68, HR 75, respirations 20, 99% room air. [address] Andrea per pt request and stating, my chest pain is still 7/10. Can you please page Dr. Mullins again? [...] note was completed by: Kendal Strange Normal [facility] Troponin Ton 04-26-2021 Troponin T.cardiac [Mass/Vol] 0.023 ug/L Normal 0.000-0.02 9 [facility] Comment on above: Performed By: #### C KCKMB, SAULO #### [place] [phone] CBC and Differentialon 04-25 Abs Baso 0.06 k/uL Normal <0.11 [facility] Comment on above: Performed By: #### T NT, CBCDIF, CMP ####[phone] Abs [place] 0.72 k/uL Normal <0.87 [facility] Comment on above: Performed By: #### T NT, CBCDIF, CMP ####[phone] Abs Neut 7.11 k/uL Normal 1.45-7.50 [facility] Comment on above: Performed By: #### T NT, CBCDIF, CMP ####[place] [phone] Absolute nRBC <0.01 Normal <0.01 [facility] Comment on above: Performed By: #### T NT, CBCDIF, CMP ####[place] [phone] Basophils/100 WBC (Bld) 0.6 % Normal [facility] Comment on above: Performed By: #### T NT, CBCDIF, CMP ####[place] [phone] DTYPE Auto Diff Normal [facility] Comment on above: Performed By: #### T NT, CBCDIF, CMP ####[place] [phone] Eosinophils (Bld) [#/Vol] 0.10 10*3/uL Normal <0.46 [facility] Comment on above: Performed By: #### T NT, CBCDIF, CMP ####[place] [phone] Eosinophils/100 WBC (Bld) 1.0 % Normal [facility] Comment on above: Performed By: #### T NT, CBCDIF, CMP ####[place] [phone] Erythrocyte distribution width (RBC) [Ratio] 13.5 % Normal 11.5-15.0 [facility] Comment on above: Performed By: #### T NT, CBCDIF, CMP ####[place] [phone] Hematocrit (Bld) [Volume fraction] 38.0 % Normal 36.0-46.0 [facility] Comment on above: Performed By: #### T NT, CBCDIF, CMP ####[place] [phone] Hemoglobin (Bld) [Mass/Vol] 11.9 g/dL Normal 11.5-15.5 [facility] Comment on above: Performed By: #### T NT, CBCDIF, CMP ####[place] [phone] Lymphocytes (Bld) [#/Vol] 1.73 10*3/uL Normal 1.00-4.00 [facility] Comment on above: Performed By: #### T NT, CBCDIF, CMP ####[place] [phone] Lymphocytes/100 WBC (Bld) 17.8 % Normal [facility] Comment on above: Performed By: #### T NT, CBCDIF, CMP ####[place] [phone] MCH 30.7 pG Normal 26.0-34.0 [facility] Comment on above: Performed By: #### T NT, CBCDIF, CMP ####[place] [phone] MCHC (RBC) [Mass/Vol] 31.3 g/dL Normal 30.5-36.0 [facility] Comment on above: Performed By: #### T NT, CBCDIF, CMP ####[place] [phone] MCV (RBC) [Entitic vol] 98.2 fL Normal 80.0-100.0 [facility] Comment on above: Performed By: #### T NT, CBCDIF, CMP ####[place] [phone] Monocytes/100 WBC (Bld) 7.4 % Normal [facility] Comment on above: Performed By: #### T NT, CBCDIF, CMP ####[place] [phone] Neutrophils/100 WBC (Bld) 73.2 % Normal [facility] Comment on above: Performed By: #### T NT, CBCDIF, CMP ####[place] [phone] NRBCs 0.0 /100 WBC Normal 0 [facility] Comment on above: Performed By: #### T NT, CBCDIF, CMP ####[place] [phone] Platelet mean volume (Bld) [Entitic vol] 12.5 fL Normal 9.0-12.7 [facility] Comment on above: Performed By: #### T NT, CBCDIF, CMP ####[place] [phone] Platelets (Bld) [#/Vol] 192 10*3/uL Normal 150-400 [facility] Comment on above: Performed By: #### T NT, CBCDIF, CMP ####[place] [phone] RBC (Bld) [#/Vol] 3.87 10*6/uL Low 3.90-5.20 [facility] Comment on above: Performed By: #### T NT, CBCDIF, CMP ####[place] [phone] WBC (Bld) [#/Vol] 9.72 10*3/uL Normal 3.70-11.00 [facility] Comment on above: Performed By: #### T NT, CBCDIF, CMP ####[place] [phone] CK, Total and CKMBon 022 CK [Catalytic activity/Vol] 65 U/L Normal 30-220 [facility] Comment on above: Performed By: #### T NT, CKCKMB ####[place] [phone] CK MB % CK MB % not reported with CK <100 U/L. Normal 0.0-4.0 [facility] Comment on above: Performed By: #### T NT, CKCKMB ####[place] [phone] MB 3.5 ng/mL Normal 0.0-8.8 [facility] Comment on above: Performed By: #### T NT, CKCKMB ####[address] [phone] CONSULTon 04-25-2021 CONSULT HNO ID: [id number] Author: Gavino Zaragoza MD Service: Cardiovascular Medicine Author Type: Physician Type: Consults Filed: 04/25/2021 6:10 PM Note Text: [facility]ARD[facility] CONSULT NOTE (Template ID [id number]) Michelle Mitchell [id number] PRIMARY SERVICE: Internal Medicine CONSULTING SERVICE: Cardiovascular [...] had fluid in her lungs. In the [facility] noted marginally elevated high sensitivity troponin, concerns for NSTEMI, therefore was transferred to [facility] for further evaluation of symptoms. Has not seen her own sales communications manager for quite sometime due to covid. Developed [...] Date - ANES PERMANENT TRANSVENOUS PACEMAKER INSERTION Apr. 2006 ICD implant, [facility] - ANESTHESIA TUBAL LIGATION/TRANSECTION - APPENDECTOMY 05/05/2014 [...] mL (BD (more content not included)... Normal [facility] Comp Metabolic Panelon 04-25 Albumin [Mass/Vol] 4.1 g/dL Normal 3.5-5.0 [facility] Comment on above: Performed By: #### T NT, CBCDIF, CMP ####[place] [phone] ALP [Catalytic activity/Vol] 131 U/L High 34-123 [facility] Comment on above: Performed By: #### T NT, CBCDIF, CMP ####[place] [phone] ALT [Catalytic activity/Vol] 30 U/L Normal 0-45 [facility] Comment on above: Performed By: #### T NT, CBCDIF, CMP ####[place] [phone] Anion gap [Moles/Vol] 12 mmol/L Normal 9-18 [facility] Comment on above: Performed By: #### T NT, CBCDIF, CMP ####[place] [phone] AST [Catalytic activity/Vol] 26 U/L Normal 7-40 [facility] Comment on above: Performed By: #### T NT, CBCDIF, CMP ####[place] [phone] Bilirubin [Mass/Vol] 1.0 mg/dL Normal 0.2-1.3 [facility] Comment on above: Performed By: #### T NT, CBCDIF, CMP ####[place] [phone] Calcium [Mass/Vol] 9.1 mg/dL Normal 8.5-10.5 [facility] Comment on above: Performed By: #### T NT, CBCDIF, CMP ####[place] [address] Chloride [Moles/Vol] 103 mmol/L Normal 98-110 [facility] Comment on above: Performed By: #### T NT, CBCDIF, CMP ####[place] [address] CO2 [Moles/Vol] 23 mmol/L Normal 23-32 [facility] Comment on above: Performed By: #### T NT, CBCDIF, CMP ####[place] [address] Creatinine [Mass/Vol] 0.71 mg/dL Normal 0.70-1.40 [facility] Comment on above: Performed By: #### T NT, CBCDIF, CMP ####[place] [address] eGFR- Amer. >60 Normal >59 [facility] Comment on above: Performed By: #### T NT, CBCDIF, CMP ####[place] [address] eGFR-All Other Races >60 Normal >59 [facility] Comment on above: Result Comment: eGFR (Estimated [...] Performed By: #### T NT, CBCDIF, CMP ####[place] [phone] Glucose [Mass/Vol] 92 mg/dL Normal 65-100 [facility] Comment on above: Performed By: #### T NT, CBCDIF, CMP ####[place] [phone] Potassium [Moles/Vol] 3.7 mmol/L Normal 3.5-5.0 [facility] Comment on above: Performed By: #### T NT, CBCDIF, CMP ####[place] [phone] Protein [Mass/Vol] 6.6 g/dL Normal 6.0-8.4 [facility] Comment on above: Performed By: #### T NT, CBCDIF, CMP ####[place] [phone] Sodium [Moles/Vol] 138 mmol/L Normal 132-148 [facility] Comment on above: Performed By: #### T NT, CBCDIF, CMP ####[place] [phone] Urea nitrogen [Mass/Vol] 4 mg/dL Low 8-25 [facility] Comment on above: Performed By: #### T NT, CBCDIF, CMP ####[place] [phone] HISTORY PHYSICALon HISTORY PHYSICAL HNO ID: [id number] Author: Aj Mullins MD Service: Hospital Medicine [...] hotness, chills, and diarrhea. She works in [employer]. She used to be a smoker of [...] patient was then transferred and admitted to [facility] for further evaluation and management. PAST [...] PERMANENT TRANSVENOUS PACEMAKER INSERTION 2006 ICD implant, [facility] - ANESTHESIA TUBAL LIGATION/TRANSECTION - APPENDECTOMY 05/05/2014 [...] Reported HOCM, (more content not included)... Normal [facility] Hemoglobin A1con 04-25-2021 Glucose [Mass/Vol] 103 mg/dL Normal [facility] Comment on above: Result Comment: eAG: (Estimated average glucose) is a calculated value from HgbA1c and is u.s. representative of the average blood glucose level in the last 2-3 month period. Performed By: #### T SH #### [place] [phone] #### HBA1C #### [place] [phone] HbA1c (Bld) [Mass fraction] 5.2 % Normal 4.3-5.6 [facility] Comment on above: Result Comment: Amer ican Diabetes Association guidelines indicate that patients with HgbA1c in the range 5.7-6.4% are at increased risk for development of diabetes, and intervention by lifestyle modification may be beneficial. HgbA1c greater or equal to 6.5% is considered diagnostic of diabetes. Performed By: #### T SH #### [place] [phone] #### HBA1C #### [place] [phone] NT Pro BNPon 04-25-2021 PRO B Natr Peptide 1979 pg/mL High <125 [facility] Comment on above: Performed By: #### N TBNP #### [place] [phone] NURSING PROGon 04-25-2021 NURSING PROG HNO ID: [id number] Author: Vance Everett RN Service: ? Author Type: Registered Nurse Type: Nursing Progress Note Filed: 04/25/2021 9:39 PM Note Text: Nursing Progress Note Patient Name: Michelle Mitchell [facility] Daily Note: paged hospitalist Michelle Mitchell, , pt requesting something stronger for pain than Tylenol. Per pt, Susanna withheld morphine d/t low BP, now 115/60. Thanks -Devonte [phone] Resident requested attempting another dose of tylenol instead of an alternative, and to page back if tylenol ineffective. Tylenol administered. 2127 - Michelle Mitchell, 5 , pt given Tylenol an hour ago, still no pain relief, 11/21 per patient. Patient requesting alternative pain medication. Thanks -Devonte [phone] This note was completed by: Vance Everett [facility] NURSING PROG HNO ID: [id number] Author: Kendal Starnge RN Service: ? Author Type: Registered Nurse Type: Nursing Progress Note Filed: 04/25/2021 1:22 PM Note Text: Nursing Progress Note Patient Name: Michelle Mitchell Patient Location: [place] [address]/[address]-5 10-13 0949 Pt resting in bed, denies dizziness [...] This note was completed by: Kendal Strange [facility] NURSING PROG HNO ID: [id number] Author: Sabrina Barbosa RN Service: ? Author Type: Registered Nurse Type: Nursing Progress Note Filed: 04/25/2021 6:53 AM Note Text: Nursing Progress Note Patient Name: Michelle Mitchell Patient Location: KE-0MWZ-9253/10-13 Daily Note: Paged hospitalist admit pager 5PAV rm 558-2 Michelle Mitchell. Pt is c/o 10/21 chest/jaw pain. can she get something? thanks, rose ext [phone] Prn nitro was ordered, pt refused. States it does not help her and will give her a migraine and make her feel worse. Pt did receive morphine at [facility] and stated that it helped with her pain then. Morphine is listed on allergy list but she states that it's not a true allergy. Paged hospitalist admit pager 5PAV rm 558-2 Michelle Mitchell. Pt refusing nitro, had morphine at [facility] says it helped and isn't a true allergy. Rose ext [phone] This note was completed by: Sabrina Barbosa [facility] NURSING PROG HNO ID: [id number] Author: Sabrina Barbosa RN Service: ? Author Type: Registered Nurse Type: Nursing Progress Note Filed: 04/25/2021 6:00 AM Note Text: Nursing Progress Note Patient Name: Michelle Mitchell Patient Location: IB-5CPG-7654/10-13 Transfer Note: Patient transferred into room/unit 558-2 in stable condition. Actions taken: No futher actions taken at this time. Will continue to monitor and check with patient. This note was completed by: Sabrina Familia Normal [facility] TSHon 04-25-2021 TSH Qn 3.510 m[IU]/L Normal 0.270-4.20 0 [facility] Comment on above: Result Comment: If [...] Recio, et al. 2017 Guidelines of the [place] Thyroid Association for the Diagnosis and Management of Thyroid Disease during and the . Thyroid, 2017:27:3:315-389. Performed By: #### T SH #### [place] [phone] #### HBA1C #### [facility] [address] [place] [phone] Troponin Ton 04-25-2021 Troponin T.cardiac [Mass/Vol] 0.028 ug/L Normal 0.000-0.[address] [place] [address] Comment on above: Performed By: #### T NT #### [place] [phone] Troponin T.cardiac [Mass/Vol] 0.026 ug/L Normal 0.000-0.[address] [place] [address] Comment on above: Performed By: #### T NT ####[place] [phone] Troponin T.cardiac [Mass/Vol] 0.029 ug/L Normal 0.000-0.[address] [place] [address] Comment on above: Performed By: #### T NT, CKCKMB ####[phone] Troponin T.cardiac [Mass/Vol] 0.028 ug/L Normal 0.000-0.[address] [place] [address] Comment on above: Performed By: #### T NT, CBCDIF, CMP ####[facility] [place], [place] [phone] XR ANKLE 3V AP/LAT/OBL RTon 11-04-2020 XR [...] No dislocation or acute fracture lucency detected. 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 Bacteria Bld Culton 09-19-19 21 Bacteria identified Cx Nom (Bld) CULTURE, BLOOD: No growth 5 days Normal [facility] Comment on above: Performed By: #### 6 00-7 #### [facility] CLIA [id number] [address] [place] [address] Bacteria identified Cx Nom (Bld) CULTURE, BLOOD: No growth 5 days Normal [facility] Comment on above: Performed By: #### 6 00-7 #### [facility] CLIA [id number] 1 [place] [id number] CBC W Auto Differential pane l (Bld)on 09-18-2020 Basophils (Bld) [#/Vol] 0.03 10*3/uL Normal <0.11 [facility] Comment on above: Order Comment: Speci men Type: BLOOD SPECIMEN Performed By: #### 2 4323-8 #### [facility] CLIA [id number] [address] [facility] [place] [address] [place] Basophils/100 WBC (Bld) 0.3 % Normal [facility] Comment on above: Order Comment: Speci men Type: BLOOD SPECIMEN Performed By: #### 2 4323-8 #### [facility] CLIA [id number] [address] [facility] [place] [place] [address] [facility] Differential cell count method Nom (Bld) Auto Normal [facility] Comment on above: Order Comment: Speci men Type: BLOOD SPECIMEN Performed By: #### 2 4323-8 #### [facility] CLIA [id number] [address] [facility] [place] [place] [address] [place] Eosinophils (Bld) [#/Vol] 0.06 10*3/uL Normal <0.46 [facility] Comment on above: Order Comment: Speci men Type: BLOOD SPECIMEN Performed By: #### 2 4323-8 #### [facility] CLIA [id number] [address] [facility] [place] [place] [address] [facility] [place] Eosinophils/100 WBC (Bld) 0.7 % Normal [facility] Comment on above: Order Comment: Speci men Type: BLOOD SPECIMEN Performed By: #### 2 4323-8 #### [facility] CLIA [id number] [address] [facility] [place] [place] [address] [place] Erythrocyte distribution width (RBC) [Ratio] 13.2 % Normal 11.5-15.0 [facility] Comment on above: Order Comment: Speci men Type: BLOOD SPECIMEN Performed By: #### 2 4323-8 #### [facility] CLIA [id number] [address] [facility] [place] [address] [facility] [place] Hematocrit (Bld) [Volume fraction] 42.4 % Normal 36.0-46.0 [facility] Comment on above: Order Comment: Speci men Type: BLOOD SPECIMEN Performed By: #### 2 4323-8 #### [facility] CLIA [id number] [address] [place] [address] [place] Hemoglobin (Bld) [Mass/Vol] 13.9 g/dL Normal 11.5-15.5 [facility] Comment on above: Order Comment: Speci men Type: BLOOD SPECIMEN Performed By: #### 2 4323-8 #### [facility] CLIA [id number] [address] [place] [address] [place] Lymphocytes (Bld) [#/Vol] 0.53 10*3/uL Low 1.00-4.00 [facility] Comment on above: Order Comment: Speci men Type: BLOOD SPECIMEN Performed By: #### 2 4323-8 #### [facility] CLIA [id number] [address] [place] [address] [place] Lymphocytes/100 WBC (Bld) 6.1 % Normal [facility] Comment on above: Order Comment: Speci men Type: BLOOD SPECIMEN Performed By: #### 2 4323-8 #### [facility] CLIA [id number] [address] [place] [address] [place] MCH (RBC) [Entitic mass] 30.8 pg Normal 26.0-34.0 [facility] Comment on above: Order Comment: Speci men Type: BLOOD SPECIMEN Performed By: #### 2 4323-8 #### [facility] CLIA [id number] [address] [place] [address] [place] MCHC (RBC) [Mass/Vol] 32.8 g/dL Normal 30.5-36.0 [facility] Comment on above: Order Comment: Speci men Type: BLOOD SPECIMEN Performed By: #### 2 4323-8 #### [facility] CLIA [id number] [address] [place] [address] [facility] [place] MCV (RBC) [Entitic vol] 93.8 fL Normal 80.0-100.0 [facility] Comment on above: Order Comment: Speci men Type: BLOOD SPECIMEN Performed By: #### 2 4323-8 #### [facility] CLIA [id number] [address] [place] [address] [facility] [place] Monocytes (Bld) [#/Vol] 0.73 10*3/uL Normal <0.87 [facility] Comment on above: Order Comment: Speci men Type: BLOOD SPECIMEN Performed By: #### 2 4323-8 #### [facility] CLIA [id number] [address] [place] [address] [facility] [place] Monocytes/100 WBC (Bld) 8.4 % Normal [facility] Comment on above: Order Comment: Speci men Type: BLOOD SPECIMEN Performed By: #### 2 4323-8 #### [facility] CLIA [id number] [address] [place] [address] [place] Neutrophils (Bld) [#/Vol] 7.34 10*3/uL Normal 1.45-7.50 [facility] Comment on above: Order Comment: Speci men Type: BLOOD SPECIMEN Performed By: #### 2 4323-8 #### [facility] CLIA [id number] [address] [place] [address] [facility] Neutrophils/100 WBC (Bld) 84.5 % Normal [facility] Comment on above: Order Comment: Speci men Type: BLOOD SPECIMEN Performed By: #### 2 4323-8 #### [facility] CLIA [id number] [address] [place] [address] [place] Platelet mean volume (Bld) [Entitic vol] 11.3 fL Normal 9.0-12.7 [facility] Comment on above: Order Comment: Speci men Type: BLOOD SPECIMEN Performed By: #### 2 4323-8 #### [facility] CLIA [id number] [address] [facility] [place] [place] [address] [facility] Platelets (Bld) [#/Vol] 240 10*3/uL Normal 150-400 [facility] Comment on above: Order Comment: Speci men Type: BLOOD SPECIMEN Performed By: #### 2 4323-8 #### [facility] CLIA [id number] [address] [facility] [place] [place] [address] [facility] RBC (Bld) [#/Vol] 4.52 10*6/uL Normal 3.90-5.20 [facility] Comment on above: Order Comment: Speci men Type: BLOOD SPECIMEN Performed By: #### 2 4323-8 #### [facility] CLIA [id number] [address] [facility] [place] [place] [address] [facility] WBC (Bld) [#/Vol] 8.69 10*3/uL Normal 3.70-11.00 [facility] Comment on above: Order Comment: Speci men Type: BLOOD SPECIMEN Performed By: #### 2 4323-8 #### [facility] CLIA [id number] [address] [facility] [place] [place] [address] [facility] Comprehensive metabolic 2000 panelon 09-18-2020 Albumin [Mass/Vol] 4.6 g/dL Normal 3.9-4.9 [facility] Comment on above: Order Comment: Speci men Type: BLOOD SPECIMEN Performed By: #### 2 4323-8 #### [facility] CLIA [id number] 225 [facility] [place] [place] [address] [facility] ALP [Catalytic activity/Vol] 117 U/L Normal 34-123 [facility] Comment on above: Order Comment: Speci men Type: BLOOD SPECIMEN Performed By: #### 2 4323-8 #### [facility] CLIA [id number] [address] [facility] [place] [place] [address] [facility] ALT With P-5'-P [Catalytic activity/Vol] 16 U/L Normal 7-38 [facility] Comment on above: Order Comment: Speci men Type: BLOOD SPECIMEN Performed By: #### 2 4323-8 #### [facility] CLIA [id number] [address] [facility] [place] [place] [address] [place] Anion gap [Moles/Vol] 11 mmol/L Normal 9-18 [facility] Comment on above: Order Comment: Speci men Type: BLOOD SPECIMEN Performed By: #### 2 4323-8 #### [facility] CLIA [id number] [address] [facility] [place] [address] [place] AST With P-5'-P [Catalytic activity/Vol] 15 U/L Normal 13-35 [facility] Comment on above: Order Comment: Speci men Type: BLOOD SPECIMEN Performed By: #### 2 4323-8 #### [facility] CLIA [id number] [address] [facility] [place] [address] [place] Bilirubin [Mass/Vol] 0.5 mg/dL Normal 0.2-1.3 [facility] Comment on above: Order Comment: Speci men Type: BLOOD SPECIMEN Performed By: #### 2 4323-8 #### [facility] CLIA [id number] [address] [facility] [place] [address] [place] Calcium [Mass/Vol] 10.0 mg/dL Normal 8.5-10.2 [facility] Comment on above: Order Comment: Speci men Type: BLOOD SPECIMEN Performed By: #### 2 4323-8 #### [facility] CLIA [id number] [address] [facility] [place] [address] [place] Chloride [Moles/Vol] 102 mmol/L Normal 97-105 [facility] Comment on above: Order Comment: Speci men Type: BLOOD SPECIMEN Performed By: #### 2 4323-8 #### [facility] CLIA [id number] [address] [facility] [place] [address] [place] CO2 [Moles/Vol] 25 mmol/L Normal 22-30 [facility] Comment on above: Order Comment: Speci men Type: BLOOD SPECIMEN Performed By: #### 2 4323-8 #### [facility] CLIA [id number] [address] [place] [address] [place] Creatinine [Mass/Vol] 0.73 mg/dL Normal 0.58-0.96 [facility] Comment on above: Order Comment: Speci men Type: BLOOD SPECIMEN Performed By: #### 2 4323-8 #### [facility] CLIA [id number] [address] [place] [address] [place] GFR/1.73 sq M.predicted among blacks MDRD (S/P/Bld) [Vol rate/Area] mL/min/{1.73_m2} Normal [facility] Comment on above: Order Comment: Speci men Type: BLOOD SPECIMEN Performed By: #### 2 4323-8 #### [facility] CLIA [id number] [address] [place] [address] [place] GFR/1.73 sq M.predicted among non-blacks MDRD (S/P/Bld) [Vol rate/Area] mL/min/{1.73_m2} Normal [facility] Comment on [...] Performed By: #### 2 4323-8 #### [facility] CLIA [id number] [address] [place] [address] [place] Glucose [Mass/Vol] 94 mg/dL Normal 74-99 [facility] Comment on above: Order Comment: Speci men Type: BLOOD SPECIMEN Result Comment: The [place] Diabetes Association (ADA) provides guidance for cutoff [...] Standards of Medical Care in Diabetes 2016, [place] Diabetes Association. Diabetes Care. 2016.39(Suppl 1). Performed By: #### 2 4323-8 #### [facility] CLIA [id number] [address] [place] [address] [place] Potassium [Moles/Vol] 3.5 mmol/L Low 3.7-5.1 [facility] Comment on above: Order Comment: Speci men Type: BLOOD SPECIMEN Performed By: #### 2 4323-8 #### [facility] CLIA [id number] [address] [place] [address] [place] Protein [Mass/Vol] 7.6 g/dL Normal 6.3-8.0 [facility] Comment on above: Order Comment: Speci men Type: BLOOD SPECIMEN Performed By: #### 2 4323-8 #### [facility] CLIA [id number] [address] [place] [address] [place] Sodium [Moles/Vol] 138 mmol/L Normal 136-144 [facility] Comment on above: Order Comment: Speci men Type: BLOOD SPECIMEN Performed By: #### 2 4323-8 #### [facility] CLIA [id number] [address] [place] [address] [place] Urea nitrogen [Mass/Vol] 4 mg/dL Low 7-21 [facility] Comment on above: Order Comment: Speci men Type: BLOOD SPECIMEN Performed By: #### 2 4323-8 #### [facility] CLIA [id number] [address] [place] [address] [facility] HCG Preg Ur Qlon 09-18-2020 HCG ( test) Ql (U) Negative Normal Negative [facility] Comment on above: Order Comment: Speci men Type: BLOOD SPECIMEN Result Comment: This test is intended to aid in the early detection of . Very dilute urine samples, as indicated by a low specific gravity, may not contain u.s. representative levels of hCG. This test detects [...] . Performed By: #### 2 4323-8 #### [facility] CLIA [id number] [address] HIGH SENSITIVITY TROPONIN To n 09-18-2020 HIGH SENSITIVITY SAULO 13 ng/L High <12 [facility] Comment on above: Order Comment: Speci [...] MACE. Performed By: #### H STNT #### [facility] CLIA [id number] [address] [place] [id number] [facility] HIGH SENSITIVITY SAULO 13 ng/L High <12 [facility] Comment on above: Order Comment: Speci [...] MACE. Performed By: #### H STNT #### [facility] CLIA [id number] [address] [place] [address] [facility] Lactate (Bld) [Moles/Vol]on 09-18-2020 Lactate [Moles/Vol] 1.3 mmol/L Normal 0.5-2.2 [facility] Comment on above: Order Comment: Speci men Type: BLOOD SPECIMEN Performed By: #### 2 4323-8 #### [facility] CLIA [id number] [address] [place] [address] [facility] RAPID GROUP A STREP RFLX TO CULTon 09-18-2020 S. pyogenes Ag IA Ql (Unsp spec) GROUP A STREP ANTIGEN: Negative Group A Strep Screen Culture negative for Beta Strep Group A Normal [facility] Comment on above: Order Comment: Speci men Type: BLOOD SPECIMEN Performed By: #### 2 4323-8 #### [facility] CLIA [id number] [address] [place] [address] [facility] Urinalysis complete panel (U )on 09-18-2020 Bilirubin Ql (U) Negative Normal Negative [facility] Comment on above: Order Comment: Speci men Type: BLOOD SPECIMEN Performed By: #### 2 4323-8 #### [facility] CLIA [id number] [address] [place] [address] [facility] Clarity (Unsp spec) Clear Normal Clear [facility] Comment on above: Order Comment: Speci men Type: BLOOD SPECIMEN Performed By: #### 2 4323-8 #### [facility] CLIA [id number] [address] [place] [address] [facility] Color (U) Yellow Normal Yellow [facility] Comment on above: Order Comment: Speci men Type: BLOOD SPECIMEN Performed By: #### 2 4323-8 #### [facility] CLIA [id number] [address] [place] [address] [facility] Epithelial cells LM.HPF (Urine sed) [#/Area] Few Normal [facility] Comment on above: Order Comment: Speci men Type: BLOOD SPECIMEN Performed By: #### 2 4323-8 #### [facility] CLIA [id number] [address] [facility] [place] [place] [address] [facility] Glucose Test strip (U) [Mass/Vol] Negative Normal Negative [facility] Comment on above: Order Comment: Speci men Type: BLOOD SPECIMEN Performed By: #### 2 4323-8 #### [facility] CLIA [id number] [address] [facility] [place] [place] [address] [facility] Hemoglobin Ql (U) 2+ Abnormal Negative [facility] Comment on above: Order Comment: Speci men Type: BLOOD SPECIMEN Performed By: #### 2 4323-8 #### [facility] CLIA [id number] [address] [place] [address] [facility] Ketones Ql (U) Negative Normal Negative [facility] Comment on above: Order Comment: Speci men Type: BLOOD SPECIMEN Performed By: #### 2 4323-8 #### [facility] CLIA [id number] [address] [place] [address] [facility] Leukocyte esterase Test strip Ql (U) Negative Normal Negative [facility] Comment on above: Order Comment: Speci men Type: BLOOD SPECIMEN Performed By: #### 2 4323-8 #### [facility] CLIA [id number] [address] [facility] [place] [place] [address] [place] Nitrite Ql (U) Negative Normal Negative [facility] Comment on above: Order Comment: Speci men Type: BLOOD SPECIMEN Performed By: #### 2 4323-8 #### [facility] CLIA [id number] [address] [facility] [place] [place] [address] [place] pH (U) 7.0 [pH] Normal 5.0-8.0 [facility] Comment on above: Order Comment: Speci men Type: BLOOD SPECIMEN Performed By: #### 2 4323-8 #### [facility] CLIA [id number] [address] [place] [address] [facility] Protein (U) [Mass/Vol] Normal [facility] Comment on above: Order Comment: Speci men Type: BLOOD SPECIMEN Result Comment: Visi ble blood causes falsely elevated results for analyte Protein. Due to this limitation, Protein will not be reported for patients whose urine contains visible blood. Performed By: #### 2 4323-8 #### [facility] CLIA [id number] [address] [place] [address] [facility] RBC LM.HPF (Urine sed) [#/Area] 0-3 /HPF Normal 0-3 /HPF [facility] Comment on above: Order Comment: Speci men Type: BLOOD SPECIMEN Performed By: #### 2 4323-8 #### [facility] CLIA [id number] [address] [place] [address] [facility] Specific gravity (U) [Rel density] 1.015 Normal 1.005-1.03 0 [facility] Comment on above: Order Comment: Speci men Type: BLOOD SPECIMEN Performed By: #### 2 4323-8 #### [facility] CLIA [id number] [address] [place] [address] [facility] Urobilinogen Ql (U) 0.2 EU/dL Normal 0.2-1.0 EU/dL [facility] Comment on above: Order Comment: Speci men Type: BLOOD SPECIMEN Performed By: #### 2 4323-8 #### [facility] CLIA [id number] [address] [place] [address] [facility] WBC LM.HPF (Urine sed) [#/Area] 0-5 /HPF Normal 0-5 /HPF [facility] Comment on above: Order Comment: Speci men Type: BLOOD SPECIMEN Performed By: #### 2 4323-8 #### [facility] CLIA [id number] [address] [place] [address] [facility] XR CHEST 1V FRONTALon 2020 XR CHEST [...] of the chest. No acute radiographic abnormality. Tap And Die Maker Technician: KIM Transcribe Date/Time: Sep 18 2020 5:24P Dictated by : ASHIA PONCE MD This examination was interpreted and the report reviewed and electronically signed by: ASHIA PONCE MD on Sep 18 2020 5:26PM EST [id number] Normal [facility] Basic metabolic 2000 panelon 04-17-2020 Anion gap [Moles/Vol] 10 mmol/L Normal 9-18 [facility] Comment on above: Order Comment: Speci men Type: BLOOD SPECIMEN Performed By: #### 2 4323-8 #### [facility] CLIA [id number] [address] [place] [address] [place] Calcium [Mass/Vol] 9.0 mg/dL Normal 8.5-10.2 [facility] Comment on above: Order Comment: Speci men Type: BLOOD SPECIMEN Performed By: #### 2 4323-8 #### [facility] CLIA [id number] [address] [place] [address] [place] Chloride [Moles/Vol] 107 mmol/L High 97-105 [facility] Comment on above: Order Comment: Speci men Type: BLOOD SPECIMEN Performed By: #### 2 4323-8 #### [facility] CLIA [id number] [address] [place] [address] [place] CO2 [Moles/Vol] 23 mmol/L Normal 22-30 [facility] Comment on above: Order Comment: Speci men Type: BLOOD SPECIMEN Performed By: #### 2 4323-8 #### [facility] CLIA [id number] [address] [place] [address] [place] Creatinine [Mass/Vol] 0.78 mg/dL Normal 0.58-0.96 [facility] Comment on above: Order Comment: Speci men Type: BLOOD SPECIMEN Performed By: #### 2 4323-8 #### [facility] CLIA [id number] [address] [place] [address] [place] GFR/1.73 sq M.predicted among blacks MDRD (S/P/Bld) [Vol rate/Area] mL/min/{1.73_m2} Normal [facility] Comment on above: Order Comment: Speci men Type: BLOOD SPECIMEN Performed By: #### 2 4323-8 #### [facility] CLIA [id number] [address] [place] [address] [place] [facility] GFR/1.73 sq M.predicted among non-blacks MDRD (S/P/Bld) [Vol rate/Area] mL/min/{1.73_m2} Normal [facility] Comment on [...] Performed By: #### 2 4323-8 #### [facility] CLIA [id number] [address] [place] [address] [place] Glucose [Mass/Vol] 91 mg/dL Normal 74-99 [facility] Comment on above: Order Comment: Speci men Type: BLOOD SPECIMEN Result Comment: The [place] Diabetes Association (ADA) provides guidance for cutoff [...] Standards of Medical Care in Diabetes 2016, [place] Diabetes Association. Diabetes Care. 2016.39(Suppl 1). Performed By: #### 2 4323-8 #### [facility] CLIA [id number] [address] [place] [address] [place] Potassium [Moles/Vol] 3.4 mmol/L Low 3.7-5.1 [facility] Comment on above: Order Comment: Speci men Type: BLOOD SPECIMEN Performed By: #### 2 4323-8 #### [facility] CLIA [id number] [address] [place] [address] [place] Sodium [Moles/Vol] 140 mmol/L Normal 136-144 [facility] Comment on above: Order Comment: Speci men Type: BLOOD SPECIMEN Performed By: #### 2 4323-8 #### [facility] CLIA [id number] [address] [place] [address] [place] Urea nitrogen [Mass/Vol] 6 mg/dL Low 7-21 [facility] Comment on above: Order Comment: Speci men Type: BLOOD SPECIMEN Performed By: #### 2 4323-8 #### [facility] CLIA [id number] [address] [place] [address] [facility] CBC panel Auto (Bld)on 04-17 Erythrocyte distribution width (RBC) [Ratio] 12.6 % Normal 11.5-15.0 [facility] Comment on above: Order Comment: Speci men Type: BLOOD SPECIMEN Performed By: #### 5 8410-2 #### [facility] CLIA [id number] [address] [place] [address] [facility] Hematocrit (Bld) [Volume fraction] 40.4 % Normal 36.0-46.0 [facility] Comment on above: Order Comment: Speci men Type: BLOOD SPECIMEN Performed By: #### 5 8410-2 #### [facility] CLIA [id number] [address] [place] [address] [facility] Hemoglobin (Bld) [Mass/Vol] 13.1 g/dL Normal 11.5-15.5 [facility] Comment on above: Order Comment: Speci men Type: BLOOD SPECIMEN Performed By: #### 5 8410-2 #### [facility] CLIA [id number] [address] [place] [address] [place] MCH (RBC) [Entitic mass] 30.4 pg Normal 26.0-34.0 [facility] Comment on above: Order Comment: Speci men Type: BLOOD SPECIMEN Performed By: #### 5 8410-2 #### [facility] CLIA [id number] [address] [place] [address] [place] MCHC (RBC) [Mass/Vol] 32.4 g/dL Normal 30.5-36.0 [facility] Comment on above: Order Comment: Speci men Type: BLOOD SPECIMEN Performed By: #### 5 8410-2 #### [facility] CLIA [id number] [address] [place] [address] [facility] MCV (RBC) [Entitic vol] 93.7 fL Normal 80.0-100.0 [facility] Comment on above: Order Comment: Speci men Type: BLOOD SPECIMEN Performed By: #### 5 8410-2 #### [facility] CLIA [id number] [address] [place] [address] [facility] Platelet mean volume (Bld) [Entitic vol] 10.8 fL Normal 9.0-12.7 [facility] Comment on above: Order Comment: Speci men Type: BLOOD SPECIMEN Performed By: #### 5 8410-2 #### [facility] CLIA [id number] [address] [place] [address] [facility] Platelets (Bld) [#/Vol] 241 10*3/uL Normal 150-400 [facility] Comment on above: Order Comment: Speci men Type: BLOOD SPECIMEN Performed By: #### 5 8410-2 #### [facility] CLIA [id number] [address] [place] [address] [facility] RBC (Bld) [#/Vol] 4.31 10*6/uL Normal 3.90-5.20 [facility] Comment on above: Order Comment: Speci men Type: BLOOD SPECIMEN Performed By: #### 5 8410-2 #### [facility] CLIA [id number] [address] [place], [place] [address] [place] [address] WBC (Bld) [#/Vol] 11.29 10*3/uL High 3.70-11.00 [facility] Comment on above: Order Comment: Speci men Type: BLOOD SPECIMEN Performed By: #### 5 8410-2 #### [facility] CLIA [id number] [address] [place], [place] [address] [place] [address] [facility] D dimer FEU PPP-mCncon 04-17 Fibrin D-dimer FEU (PPP) [Mass/Vol] 310 ng/mL FEU Normal <500 [facility] Comment on above: Order Comment: Speci men Type: BLOOD SPECIMEN Performed By: #### 2 4323-8 #### [facility] CLIA [id number] [address] [place] [address] [facility] HCG Preg Ur Qlon 04-17-2020 HCG ( test) Ql (U) Negative Normal Negative [facility] Comment on above: Order Comment: Speci men Type: URINE SPECIMEN Result Comment: This test is intended to aid in the early detection of . Very dilute urine samples, as indicated by a low specific gravity, may not contain u.s. representative levels of hCG. This test detects [...] . Performed By: #### 2 106-3 #### [facility] CLIA [id number] [address] [place] [address] HIGH SENSITIVITY TROPONIN To n 04-17-2020 HIGH SENSITIVITY SAULO 14 ng/L High <12 [facility] Comment on above: Order Comment: Speci [...] MACE. Performed By: #### H STNT #### [facility] CLIA [id number] [address] HIGH SENSITIVITY SAULO 14 ng/L High <12 [facility] Comment on above: Order Comment: Speci [...] MACE. Performed By: #### 2 4323-8 #### [facility] CLIA [id number] [address] [place] [address] [place] XR CHEST 1V FRONTALon 2020 [...] Other: - IMPRESSION: No acute radiographic abnormality. Tap And Die Maker Technician: KIM Transcribe Date/Time: Apr 16 2020 11:07P Dictated by : VICTOR M STALEY MD This examination was interpreted and the report reviewed and electronically signed by: VICTOR M STALEY MD on Apr 16 2020 11:10PM EST Normal [facility] CORONAVIRUS 2019 BY PCRon CORONAVIRUS 2019,PCR NOT DETECTED Normal Not Detected [facility]3] Comment on above: Result Comment: . This [...] patient management decisions. Fact sheet for providers: https://www.fda.gov/media/187707/download Fact sheet for patients: https://www.fda.gov/media/574069/download This test has received FDA Emergency Use Authorization (EUA) and has been verified by [facility] ([facility]). This test is only authorized for the duration of time that circumstances exist to justify the authorization of the emergency use of in vitro diagnostic tests for the detection of SARS-CoV-2 virus and/or diagnosis of COVID-19 infection under section 564(b)(1) of the Act, 21 U.S.C. 360bbb-3(b)(1), unless the authorization is terminated or revoked sooner. [facility] is certified under CLIA-88 as qualified to perform high complexity testing. Testing is performed in the [facility] laboratories located at [address] [place] [address]. Performed By: #### C OV19 #### [facility] [address] [place] [place] [address] DATE OF SYMPTOM ONSET [YYYYMMDD]? [id number] Normal [facility]3] Comment on above: Performed By: #### C OV19 #### [address] [place] [address] Covid 19 Resultson 1 Covid 19 Results [...] may also be contacted by the [facility] of Health to see if any of your close [...] or Naproxen (Aleve) can also be used. Fvll-ead-xjtycit cough and cold medicines can be used according to the instructions on the package. Some hzui-llj-wwbvfyo medicines also contain acetaminophen. Make sure you [...] water are not available, use alcohol-based hand teacher adventure education. Avoid touching your eyes, nose, and mouth [...] a total of 10 days. Additional resources: [facility] COVID Hotline at 1-052-8RGOMJU ( ). COVID-19 Careline at (available 24 hours per day, seven days a week if you or a loved one is experiencing anxiety related to the coronavirus pandemic). Clinical research opportunities: is conducting research studies to develop better testing and treatments for COVID. Do you want any information on how to participate Call [phone]. Websites: hospitals.org or www.CDC.gov Follow My Health / My [facility]HC[facility] (for other test results): Revised 01/29/2020 Electronic Signatures: [employer] (ADMIN) (Signature pending) Authored Last Updated: 23-Mar-2020 06:43 by SOBIA MonrealMS[employer] (ADMIN) Normal [facility]3] CORONAVIRUS 2019 BY PCRon Lab Specimen Source Nasal, Nasopharyngeal Normal [facility]3] Comment on above: Performed By: #### C OV19 #### [facility] [address] [place] [address] CT CERVICAL SPINE WO IVCONon 12-10-2019 CT CERVICAL SPINE WO IVCON Final Report DATE OF EXAM: Dec 10 2019 8:55PM [facility] 0505 - CT CERVICAL SPINE WO IVCON [...] No cervical spine fracture or traumatic malalignment. Tap And Die Maker Technician: KIM Transcribe Date/Time: Dec 10 2019 8:59P Dictated by : DEX TOLENTINO MD This examination was interpreted and the report reviewed and electronically signed by: DEX TOLENTINO MD on Dec 10 2019 9:08PM EST Normal [facility] XR CHEST 1V FRONTALon 2019 XR CHEST [...] No acute bony abnormality. IMPRESSION:No acute process. Tap And Die Maker Technician: [facility] Transcribe Date/Time: Dec 10 2019 9:18P Dictated by : JOEY OVALLES MD This examination was interpreted and the report reviewed and electronically signed by: JOEY OVALLES MD on Dec 10 2019 9:19PM EST Normal [facility] XR SHLDR >/=3V AP/ELENA AP/OTH R LTon [...] normal. Joint spaces are preserved. IMPRESSION:Normal shoulder. Tap And Die Maker [facility] Transcribe Date/Time: Dec 10 2019 9:14P Dictated by : JOEY OVALLES MD This examination was interpreted and the report reviewed and electronically signed by: JOEY OVALLES MD on Dec 10 2019 9:17PM EST Normal [facility] XR THORACIC 3V AP/LAT/SWIMME RSon 12-10-2019 XR [...] No significant degenerative spondylosis. IMPRESSION:Normal thoracic spine. Tap And Die Maker Technician: [facility] Transcribe Date/Time: Dec 10 2019 9:19P Dictated by : JOEY OVALLES MD This examination was interpreted and the report reviewed and electronically signed by: JOEY OVALLES MD on Dec 10 2019 9:21PM EST Normal [facility] HISTORY PHYSICALon HISTORY PHYSICAL HNO ID: [id number]: Nallely Min (Pac) Eduardo De La Garzaice: [...] PAST SURGICAL HISTORY OF 05/24/2014 Laparoscopy, - [place] ANESTH,PACEMAKER INSERTION 2006 ICD implant, [facility]- REMOVAL OF OVARY(S) Left 2010 For malignancyPrior [...] and Percocet- Ativan [Lorazepam] Vomiting- Azithromycin Intolerance- [facility] Anaphylaxis- Fish Anaphylaxis- Levofloxacin In D5w Swelling, [...] De La Garza PA-C PATIENT NAME: Michelle DeckerATE: August 25, 2017 : 12:58 PM PAGER: [phone] [facility] PT EDon 08-25-2017 PT ED HNO ID: [id number]: Roxane SingerRn) DEUCE Laraervice: (none)Author Type: Registered NurseType: Patient [...] RN In Department: PROCEDURES [facility] PT ED HNO ID: [id number]: Arvind SingerRn) Shruti, RNService: NursingAuthor Type: Registered NurseType: Patient EducationFiled: 08/25/2017 12:47 PMNote Text:PRE OP LEARNING ASSESSMENTPROCEDURE/SURG QUINN: GI PROCEDURES: EGDREADINESS TO LEARNCOGNITIVE ABILITY: Alert and orientedMOTIVATION TO LEARN: EagerFAMILY SUPPORT: High - Very involved in pt carePATIENT LEARNS BEST BY: Verbal InstructionFACTORS AFFECTING LEARNING: NonePHYSICAL LIMITATIONS AFFECTING LEARNING: NoneElectronically Signed By: Arvind Bahena RN [facility] SURGICAL PATHOLOGYon 018 SURGICAL PATHOLOGY [facility]: [id number] Physician: BALDO KENNEDY FINAL DIAGNOSISAntrum, biopsy - [...] submitted in one cassette.Gross examination performed at [facility], [address] [place], [place] [address], [place] [address]YBT 08/25/17Patient ID #: [id number] of Report: 08/27/2017Date of Procedure: 08/25/2017Date of Receipt: 08/25/2017Submitted by: MOUSAB TABBAALocation: AVENDiagnostic interpretation performed at [facility], [address],[facility] [address] [facility] Reference Lab Comment on above: Performed By: #### S ####See report for performing lab information. HOSPon 08-22-2017 HOSP Patient:Dick Mitchell Rafaela RN: Height:5' 4(1.626 m)Weight:116 lb (52.617 kg)Outpatient [...] and vomiting [R11.2]Allergies:Morphin eAtivan [Lorazepam]AzithromycinC ucumberFishLevofloxacin In T3fHdbtnkabo [Gabapentin]pickles [Other]ShellfishTigan [Trimethobenzamide-Benzo dick]Ultram [Tramadol]Vicodin [Hydrocodone-Acetaminoph en]Zofran [Ondansetron Hcl (Pf)]Date Verified: 08/25/17Lab ValuesLab Value Units Date High LowPOTA* 3.1 mEq/L 08/05/2017 5.1 3.5HEMA* 41.2 % 08/05/2017 47.0 37.0Progress Notes (RADIO GEN [facility] CC):Kwasi Evelyn Narcisavinicio Rt 08/22/2017 11:17 AM Signed Radiology Service Progress NotePATIENT NAME: Michelle MitchellMRN: [id number] OF SERVICE: August 22, 2017TIME: 11:16 AMPATIENT IDENTITY VERIFICATION COMPLETED USING TWO (2) METHODS: Patientconfirmed name verbally and Date of .PATIENT GENDER DATA: Female. status: : No Breastfeedingstatus: NO.PATIENT RELEVANT IMPLANT DATA REVIEWED: Not ApplicableRADIOLOGY DEPARTMENT: General X-ray: Exam(s) Completed: Abdomen X-Ray AbdomenPERIPHERAL IV DATA: Not applicableSIGNED BY: Praveena Traore RtJune 2017 11:16 AMProgress Notes (SERGIO [facility] REJ):Jacqueline Stevens MA, MA 08/22/2017 10:[address] Aguilera is in regards to our mutual patient Michelle Mitchell who is scheduled gwendolyn EGD on 08/25/2017. Dr. Kennedy is requesting that Ms. Mitchell stop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s prior to procedure.Please advise and route message to:Dominguez MASON CORS/SERGIO NURSE [id number] Stevens MA, MA 08/23/2017 8:07 AM SignedDex Wilkinson ?You 20 hours ago (11:27 AM)Yes may stop for egd (Routing comment) Normal [facility] Vital Signs Date Time Vital Sign Value Performing Clinician Facility 11-25-2024 18:40-0400 Body temperature 98.6 [degF] Dr. Dex Wilkinson MD Work Phone: [facility] 11-25-2024 18:40-0400 Diastolic blood pressure 57 mm[Hg] Dr. Dex Wilkinson MD Work Phone: [facility] 11-25-2024 18:40-0400 Heart rate 81 /min Dr. Dex Wilkinson MD Work Phone: [facility] 11-25-2024 18:40-0400 Respiratory rate 20 /min Dr. Dex Wilkinson MD Work Phone: [facility] 11-25-2024 18:40-0400 SaO2% (BldA) [Mass fraction] 94 % Dr. Dex Wilkinson MD Work Phone: [facility] 11-25-2024 18:40-0400 Systolic blood pressure 126 mm[Hg] Dr. Dex Wilkinson MD Work Phone: [facility] 11-25-2024 14:42-0400 Body height 162.[address] Dex Wilkinson MD Work Phone: [facility] 11-25-2024 14:42-0400 Body mass index (BMI) [Ratio] 21.9 kg/m2 Dr. Dex Wilkinson MD Work Phone: [facility] 11-25-2024 14:42-0400 Body weight 57.[address] Dex Wilkinson MD Work Phone: [facility] 11-23-2024 15:25-0400 Body temperature 98.6 [degF] Dr. Dex Wilkinson MD Work Phone: [facility] 11-23-2024 15:25-0400 Diastolic blood pressure 68 mm[Hg] Dr. Dex Wilkinson MD Work Phone: [facility] 11-23-2024 15:25-0400 Heart rate 75 /min Dr. Dex Wilkinson MD Work Phone: [facility] 11-23-2024 15:25-0400 Respiratory rate 18 /min Dr. Dex Wilkinson MD Work Phone: [facility] 11-23-2024 15:25-0400 SaO2% (BldA) [Mass fraction] 100 % Dr. Dex Wilkinson MD Work Phone: [facility] 11-23-2024 15:25-0400 Systolic blood pressure 98 mm[Hg] Dr. Dex Wilkinson MD Work Phone: [facility] 11-23-2024 12:38-0400 Body height 162.[address] Dex Wilkinson MD Work Phone: [facility] 11-23-2024 12:38-0400 Body mass index (BMI) [Ratio] 21.9 kg/m2 Dr. Dex Wilkinson MD Work Phone: [facility] 11-23-2024 12:38-0400 Body weight 57.[address] Dex Wilkinson MD Work Phone: [facility] 11-21-2024 10:30-0400 Body height 162.6 cm Radu Kay MD Work Phone: [facility] 11-21-2024 10:30-0400 Body mass index (BMI) [Ratio] 21.63 kg/m2 Radu Kay MD Work Phone: [facility] 11-21-2024 10:30-0400 Body weight 57.15 kg Radu Kay MD Work Phone: [facility] 11-21-2024 10:30-0400 Diastolic blood pressure 45 mm[Hg] Radu Kay MD Work Phone: [facility] 11-21-2024 10:30-0400 Heart rate 73 /min Radu Kay MD Work Phone: [facility] 11-21-2024 10:30-0400 Respiratory rate 16 /min Radu Kay MD Work Phone: [facility] 11-21-2024 10:30-0400 SaO2% (BldA) [Mass fraction] 99 % Radu Kay MD Work Phone: [facility] 11-21-2024 10:30-0400 Systolic blood pressure 115 mm[Hg] Radu Kay MD Work Phone: [facility] 10-17-2024 15:31-0400 Body height 162.[address] Dex Wilkinson MD Work Phone: [facility] 10-17-2024 15:31-0400 Body mass index (BMI) [Ratio] 20.4 kg/m2 Dr. Dex Wilkinson MD Work Phone: [facility] 10-17-2024 15:31-0400 Body weight 53.[address] Dex Wilkinson MD Work Phone: [facility] 10-17-2024 15:31-0400 Diastolic blood pressure 74 mm[Hg] Dr. Dex Wilkinson MD Work Phone: [facility] 10-17-2024 15:31-0400 Heart rate 65 /min Dr. Dex Wilkinson MD Work Phone: [facility] 10-17-2024 15:31-0400 Respiratory rate 16 /min Dr. Dex Wilkinson MD Work Phone: [facility] 10-17-2024 15:31-0400 SaO2% (BldA) [Mass fraction] 97 % Dr. Dex Wilkinson MD Work Phone: [facility] 10-17-2024 15:31-0400 Systolic blood pressure 116 mm[Hg] Dr. Dex Wilkinson MD Work Phone: [facility] 09-23-2024 08:06-0400 Body temperature 97 [degF] Rocky Everett DO Work Phone: [facility] 09-23-2024 08:06-0400 Diastolic blood pressure 78 mm[Hg] Rocky Everett DO Work Phone: [facility] 09-23-2024 08:06-0400 Heart rate 70 /min Rocky Everett DO Work Phone: [facility] 09-23-2024 08:06-0400 Respiratory rate 16 /min Rocky Everett DO Work Phone: [facility] 09-23-2024 08:06-0400 SaO2% (BldA) [Mass fraction] 98 % Rocky Everett DO Work Phone: [facility] 09-23-2024 08:06-0400 Systolic blood pressure 120 mm[Hg] Rocky Everett DO Work Phone: [facility] 09-23-2024 06:07-0400 Body mass index (BMI) [Ratio] 20.28 kg/m2 Rocky Everett DO Work Phone: [facility] 09-23-2024 06:07-0400 Body weight 53.6 kg Rocky Everett DO Work Phone: [facility] 09-21-2024 04:25-0400 Body height 162.6 cm Rocky Everett DO Work Phone: [facility] 09-18-2024 13:12-0400 Body height 162.[address] Dex Wilkinson MD Work Phone: [facility] 09-18-2024 13:12-0400 Diastolic blood pressure 85 mm[Hg] Dr. Dex Wilkinson MD Work Phone: [facility] 09-18-2024 13:12-0400 Heart rate 67 /min Dr. Dex Wilkinson MD Work Phone: [facility] 09-18-2024 13:12-0400 SaO2% (BldA) [Mass fraction] 98 % Dr. Dex Wilkinson MD Work Phone: [facility] 09-18-2024 13:12-0400 Systolic blood pressure 133 mm[Hg] Dr. Dex Wilkinson MD Work Phone: [facility] 09-14-2024 10:19-0400 Heart rate 60 /min Dr. Dex Wilkinson MD Work Phone: [facility] 09-14-2024 09:00-0400 Body temperature 97.3 [degF] Dr. Dex Wilkinson MD Work Phone: [facility] 09-14-2024 09:00-0400 Diastolic blood pressure 84 mm[Hg] Dr. Dex Wilkinson MD Work Phone: [facility] 09-14-2024 09:00-0400 Respiratory rate 17 /min Dr. Dex Wilkinson MD Work Phone: [facility] 09-14-2024 09:00-0400 SaO2% (BldA) [Mass fraction] 99 % Dr. Dex Wilkinson MD Work Phone: [facility] 09-14-2024 09:00-0400 Systolic blood pressure 119 mm[Hg] Dr. Dex Wilkinson MD Work Phone: [facility] 09-14-2024 06:00-0400 Body mass index (BMI) [Ratio] 24.5 kg/m2 Dr. Dex Wilkinson MD Work Phone: [facility] 09-14-2024 06:00-0400 Body weight 64.[address] Dex Wilkinson MD Work Phone: [facility] 09-12-2024 00:26-0400 Body height 162.[address] Dex Wilkinson MD Work Phone: [facility] 09-11-2024 23:27-0400 Body temperature 98 [degF] Dr. Dex Wilkinson MD Work Phone: [facility] 09-11-2024 23:27-0400 Diastolic blood pressure 95 mm[Hg] Dr. Dex Wilkinson MD Work Phone: [facility] 09-11-2024 23:27-0400 Heart rate 78 /min Dr. Dex Wilkinson MD Work Phone: [facility] 09-11-2024 23:27-0400 Respiratory rate 16 /min Dr. Dex Wilkinson MD Work Phone: [facility] 09-11-2024 23:27-0400 SaO2% (BldA) [Mass fraction] 99 % Dr. Dex Wilkinson MD Work Phone: [facility] 09-11-2024 23:27-0400 Systolic blood pressure 131 mm[Hg] Dr. Dex Wilkinson MD Work Phone: [facility] 09-11-2024 17:19-0400 Body height 162.[address] Dex Wilkinson MD Work Phone: [facility] 09-11-2024 17:19-0400 Body mass index (BMI) [Ratio] 21.6 kg/m2 Dr. Dex Wilkinson MD Work Phone: [facility] 09-11-2024 17:19-0400 Body weight 57.[address] Dex Wilkinson MD Work Phone: [facility] 08-27-2024 12:03-0400 Diastolic blood pressure 75 mm[Hg] Dr. Dex Wilkinson MD Work Phone: [facility] 08-27-2024 12:03-0400 Heart rate 63 /min Dr. Dex Wilkinson MD Work Phone: [facility] 08-27-2024 12:03-0400 Respiratory rate 18 /min Dr. Dex Wilkinson MD Work Phone: [facility] 08-27-2024 12:03-0400 SaO2% (BldA) [Mass fraction] 96 % Dr. Dex Wilkinson MD Work Phone: [facility] 08-27-2024 12:03-0400 Systolic blood pressure 134 mm[Hg] Dr. Dex Wilkinson MD Work Phone: [facility] 08-24-2024 15:22-0400 Body temperature 97.9 [degF] Dr. Dex Wilkinson MD Work Phone: [facility] 08-24-2024 15:22-0400 Diastolic blood pressure 61 mm[Hg] Dr. Dex Wilkinson MD Work Phone: [facility] 08-24-2024 15:22-0400 Heart rate 54 /min Dr. Dex Wilkinson MD Work Phone: [facility] 08-24-2024 15:22-0400 Respiratory rate 16 /min Dr. Dex Wilkinson MD Work Phone: [facility] 08-24-2024 15:22-0400 SaO2% (BldA) [Mass fraction] 99 % Dr. Dex Wilkinson MD Work Phone: [facility] 08-24-2024 15:22-0400 Systolic blood pressure 103 mm[Hg] Dr. Dex Wilkinson MD Work Phone: [facility] 08-22-2024 08:40-0400 Inhaled oxygen flow rate 97 L/min Dr. Dex Wilkinson MD Work Phone: [facility] 08-21-2024 16:39-0400 Body height 162.[address] Dex Wilkinson MD Work Phone: [facility] 08-21-2024 16:39-0400 Body mass index (BMI) [Ratio] 21.7 kg/m2 Dr. Dxe Wilkinson MD Work Phone: [facility] 08-21-2024 16:39-0400 Body weight 57.[address] Dex Wilkinson MD Work Phone: [facility] 08-20-2024 18:00-0400 Body temperature 97.8 [degF] Dr. Dex Wilkinson MD Work Phone: [facility] 08-20-2024 18:00-0400 Diastolic blood pressure 88 mm[Hg] Dr. Dex Wilkinson MD Work Phone: [facility] 08-20-2024 18:00-0400 Heart rate 63 /min Dr. Dex Wilkinson MD Work Phone: [facility] 08-20-2024 18:00-0400 Respiratory rate 18 /min Dr. Dex Wilkinson MD Work Phone: [facility] 08-20-2024 18:00-0400 SaO2% (BldA) [Mass fraction] 100 % Dr. Dex Wilkinson MD Work Phone: [facility] 08-20-2024 18:00-0400 Systolic blood pressure 136 mm[Hg] Dr. Dex Wilkinson MD Work Phone: [facility] 08-20-2024 14:16-0400 Body height 162.[address] Dex Wilkinson MD Work Phone: [facility] 08-20-2024 14:16-0400 Body mass index (BMI) [Ratio] 22.2 kg/m2 Dr. Dex Wilkinson MD Work Phone: [facility] 08-20-2024 14:16-0400 Body weight 58.[address] Dex Wilkinson MD Work Phone: [facility] 08-15-2024 10:57-0400 Body height 162.6 cm Radu Kay MD Work Phone: [facility] 08-15-2024 10:57-0400 Body mass index (BMI) [Ratio] 21.7 kg/m2 Radu Kay MD Work Phone: [facility] 08-15-2024 10:57-0400 Body weight 57.34 kg Radu aKy MD Work Phone: [facility] 08-15-2024 10:57-0400 Diastolic blood pressure 59 mm[Hg] Radu Kay MD Work Phone: [facility] 08-15-2024 10:57-0400 Heart rate 65 /min Radu Kay MD Work Phone: [facility] 08-15-2024 10:57-0400 Respiratory rate 16 /min Radu Kay MD Work Phone: [facility] 08-15-2024 10:57-0400 SaO2% (BldA) [Mass fraction] 96 % Radu Kay MD Work Phone: [facility] 08-15-2024 10:57-0400 Systolic blood pressure 120 mm[Hg] Radu Kay MD Work Phone: [facility] 08-11-2024 13:41-0400 Body temperature 97.8 [degF] Dr. Dex Wilkinson MD Work Phone: [facility] 08-11-2024 13:41-0400 Diastolic blood pressure 76 mm[Hg] Dr. Dex Wilkinson MD Work Phone: [facility] 08-11-2024 13:41-0400 Heart rate 64 /min Dr. Dex Wilkinson MD Work Phone: [facility] 08-11-2024 13:41-0400 Respiratory rate 16 /min Dr. Dex Wilkinson MD Work Phone: [facility] 08-11-2024 13:41-0400 SaO2% (BldA) [Mass fraction] 97 % Dr. Dex Wilkinson MD Work Phone: [facility] 08-11-2024 13:41-0400 Systolic blood pressure 105 mm[Hg] Dr. Dex Wilkinson MD Work Phone: [facility] 08-11-2024 10:27-0400 Body height 162.[address] Dex Wilkinson MD Work Phone: [facility] 08-11-2024 10:27-0400 Body mass index (BMI) [Ratio] 20.7 kg/m2 Dr. Dex Wilkinson MD Work Phone: [facility] 08-11-2024 10:27-0400 Body weight 54.[address] Dex Wilkinson MD Work Phone: [facility] 07-25-2024 16:43-0400 Diastolic blood pressure 57 mm[Hg] [facility] 07-25-2024 16:43-0400 Heart rate 61 /min [facility] 07-25-2024 16:43-0400 Respiratory rate 18 /min [facility] 07-25-2024 16:43-0400 SaO2% (BldA) [Mass fraction] 95 % [facility] 07-25-2024 16:43-0400 Systolic blood pressure 110 mm[Hg] [facility] 07-25-2024 15:04-0400 Body temperature 98.2 [degF] [facility] 07-24-2024 08:20-0400 Inhaled oxygen flow rate 2 L/min Dr. Dex Wilkinson MD Work Phone: [facility] 07-24-2024 08:20-0400 SaO2% (BldA) [Mass fraction] 96 % Dr. Dex Wilkinson MD Work Phone: [facility] 07-24-2024 07:41-0400 Body temperature 97.6 [degF] Dr. Dex Wilkinson MD Work Phone: [facility] 07-24-2024 07:41-0400 Diastolic blood pressure 79 mm[Hg] Dr. Dex Wilkinson MD Work Phone: [facility] 07-24-2024 07:41-0400 Heart rate 62 /min Dr. Dex Wilkinson MD Work Phone: [facility] 07-24-2024 07:41-0400 Respiratory rate 17 /min Dr. Dex Wilkinson MD Work Phone: [facility] 07-24-2024 07:41-0400 Systolic blood pressure 126 mm[Hg] Dr. Dex Wilkinson MD Work Phone: [facility] 07-24-2024 06:00-0400 Body mass index (BMI) [Ratio] 22.8 kg/m2 Dr. Dex Wilkinson MD Work Phone: [facility] 07-24-2024 06:00-0400 Body weight 60.[address] Dex Wilkinson MD Work Phone: [facility] 07-21-2024 09:02-0400 Body height 162.[address] Dex Wilkinson MD Work Phone: [facility] 07-20-2024 23:38-0400 Body temperature 98.2 [degF] Dr. Dex Wilkinson MD Work Phone: [facility] 07-20-2024 23:38-0400 Diastolic blood pressure 100 mm[Hg] Dr. Dex Wilkinson MD Work Phone: [facility] 07-20-2024 23:38-0400 Heart rate 70 /min Dr. Dex Wilkinson MD Work Phone: [facility] 07-20-2024 23:38-0400 Respiratory rate 15 /min Dr. Dex Wilkinson MD Work Phone: [facility] 07-20-2024 23:38-0400 SaO2% (BldA) [Mass fraction] 99 % Dr. Dex Wilkinson MD Work Phone: [facility] 07-20-2024 23:38-0400 Systolic blood pressure 133 mm[Hg] Dr. Dex Wilkinson MD Work Phone: [facility] 07-20-2024 18:57-0400 Body height 162.[address] Dex Wilkinson MD Work Phone: [facility] 07-20-2024 18:57-0400 Body mass index (BMI) [Ratio] 23.6 kg/m2 Dr. Dex Wilkinson MD Work Phone: [facility] 07-20-2024 18:57-0400 Body weight 62.[address] Dex Wilkinson MD Work Phone: [facility] 07-12-2024 12:25-0400 Body temperature 97.4 [degF] Dr. Dex Wilkinson MD Work Phone: [facility] 07-12-2024 12:25-0400 Diastolic blood pressure 69 mm[Hg] Dr. Dex Wilkinson MD Work Phone: [facility] 07-12-2024 12:25-0400 Heart rate 60 /min Dr. Dex Wilkinson MD Work Phone: [facility] 07-12-2024 12:25-0400 Respiratory rate 16 /min Dr. Dex Wilkinson MD Work Phone: [facility] 07-12-2024 12:25-0400 SaO2% (BldA) [Mass fraction] 98 % Dr. Dex Wilkinson MD Work Phone: [facility] 07-12-2024 12:25-0400 Systolic blood pressure 103 mm[Hg] Dr. Dex Wilkinson MD Work Phone: [facility] [facility] 07-12-2024 10:17-0400 Body mass index (BMI) [Ratio] 21.5 kg/m2 Dr. Dex Wilkinson MD Work Phone: [facility] 07-12-2024 10:17-0400 Body weight [address] Dex Wilkinson MD Work Phone: [facility] 07-10-2024 07:16-0400 Body mass index (BMI) [Ratio] 21.6 kg/m2 Dr. Dex Wilkinson MD Work Phone: [facility] 07-10-2024 07:16-0400 Body weight 57.[address] Dex Wilkinson MD Work Phone: [facility] 07-10-2024 07:16-0400 Diastolic blood pressure 83 mm[Hg] Dr. Dex Wilkinson MD Work Phone: [facility] 07-10-2024 07:16-0400 Heart rate 70 /min Dr. Dex Wilkinson MD Work Phone: [facility] 07-10-2024 07:16-0400 Respiratory rate 16 /min Dr. Dex Wilkinson MD Work Phone: [facility] 07-10-2024 07:16-0400 SaO2% (BldA) [Mass fraction] 98 % Dr. Dex Wilkinson MD Work Phone: [facility] 07-10-2024 07:16-0400 Systolic blood pressure 134 mm[Hg] Dr. Dex Wilkinson MD Work Phone: [facility] 07-03-2024 17:55-0400 Body temperature 98.2 [degF] Dr. Dxe Wilkinson MD Work Phone: [facility] 07-03-2024 17:55-0400 Diastolic blood pressure 93 mm[Hg] Dr. Dex Wilkinson MD Work Phone: [facility] 07-03-2024 17:55-0400 Heart rate 68 /min Dr. Dex Wilkinson MD Work Phone: [facility] 07-03-2024 17:55-0400 Respiratory rate 19 /min Dr. Dex Wilkinson MD Work Phone: [facility] 07-03-2024 17:55-0400 SaO2% (BldA) [Mass fraction] 99 % Dr. Dex Wilkinson MD Work Phone: [facility] 07-03-2024 17:55-0400 Systolic blood pressure 142 mm[Hg] Dr. Dex Wilkinson MD Work Phone: [facility] 07-03-2024 13:30-0400 Body mass index (BMI) [Ratio] 22.9 kg/m2 Dr. Dex Wilkinson MD Work Phone: [facility] 07-03-2024 13:30-0400 Body weight 60.[address] Dex Wilkinson MD Work Phone: [facility] 07-01-2024 23:24-0400 Body temperature 97.9 [degF] Dr. Dex Wilkinson MD Work Phone: [facility] 07-01-2024 23:24-0400 Diastolic blood pressure 100 mm[Hg] Dr. Dex Wilkinson MD Work Phone: [facility] 07-01-2024 23:24-0400 Heart rate 70 /min Dr. Dex Wilkinson MD Work Phone: [facility] 07-01-2024 23:24-0400 Respiratory rate 17 /min Dr. Dex Wilkinson MD Work Phone: [facility] 07-01-2024 23:24-0400 SaO2% (BldA) [Mass fraction] 99 % Dr. Dex Wilkinson MD Work Phone: [facility] 07-01-2024 23:24-0400 Systolic blood pressure 136 mm[Hg] Dr. Dex Wilkinson MD Work Phone: [facility] 07-01-2024 19:52-0400 Body height 162.[address] Dex Wilkinson MD Work Phone: [facility] 07-01-2024 19:52-0400 Body mass index (BMI) [Ratio] 22 kg/m2 Dr. Dex Wilkinson MD Work Phone: [facility] 07-01-2024 19:52-0400 Body weight 58.[address] Dex Wilkinson MD Work Phone: [facility] 05-11-2024 23:42-0500 Body mass index (BMI) [Ratio] 21.5 kg/m2 Dr. Dex Wilkinson MD Work Phone: [facility] 05-11-2024 23:42-0500 Body temperature 98.2 [degF] Dr. Dex Wilkinson MD Work Phone: [facility] 05-11-2024 23:42-0500 Body weight 56.[address] Dex Wilkinson MD Work Phone: [facility] 05-11-2024 23:42-0500 Diastolic blood pressure 105 mm[Hg] Dr. Dex Wilkinson MD Work Phone: [facility] 05-11-2024 23:42-0500 Heart rate 105 /min Dr. Dex Wilkinson MD Work Phone: [facility] 05-11-2024 23:42-0500 Respiratory rate 20 /min Dr. Dex Wilkinson MD Work Phone: [facility] 05-11-2024 23:42-0500 SaO2% (BldA) [Mass fraction] 100 % Dr. Dex Wilkinson MD Work Phone: [facility] 05-11-2024 23:42-0500 Systolic blood pressure 169 mm[Hg] Dr. Dex Wilkinson MD Work Phone: [facility] 10-31-2023 10:45-0400 Diastolic Blood Pressure Non-Invasive 60 mm[Hg] DR VICTOR M ORTIZ MD [facility] 10-31-2023 10:45-0400 Heart rate 65 /min DR VICTOR M ORTIZ MD [facility] 10-31-2023 10:45-0400 Respiratory rate 20 /min DR VICTOR M ORTIZ MD [facility] 10-31-2023 10:45-0400 Systolic Blood Pressure Non-Invasive 95 mm[Hg] DR VICTOR M ORTIZ MD [facility] 10-31-2023 10:41-0400 Diastolic Blood Pressure Non-Invasive 54 mm[Hg] DR VICTOR M ORTIZ MD [facility] 10-31-2023 10:41-0400 Heart rate 65 /min DR VICTOR M ORTIZ MD [facility] 10-31-2023 10:41-0400 Respiratory rate 24 /min DR VICTOR M ORTIZ MD [facility] 10-31-2023 10:41-0400 Systolic Blood Pressure Non-Invasive 93 mm[Hg] DR VICTOR M ORTIZ MD [facility] 10-31-2023 10:35-0400 Diastolic Blood Pressure Non-Invasive 52 mm[Hg] DR VICTOR M ORTIZ MD [facility] 10-31-2023 10:35-0400 Heart rate 67 /min DR VICTOR M ORTIZ MD [facility] 10-31-2023 10:35-0400 Respiratory rate 24 /min DR VICTOR M ORTIZ MD [facility] 10-31-2023 10:35-0400 Systolic Blood Pressure Non-Invasive 89 mm[Hg] DR VICTOR M ORTIZ MD [facility] 10-31-2023 10:30-0400 Body height [address] VICTOR M ORTIZ MD [facility] 10-31-2023 10:30-0400 Body weight [address] VICTOR M ORTIZ MD [facility] 10-31-2023 10:30-0400 Body weight 20.44 kg/m2 DR VICTOR M ORTIZ MD [facility] 10-31-2023 10:25-0400 Respiratory Rate - Anes 28 br/min DR VICTOR M ORTIZ MD [facility] 10-31-2023 10:20-0400 Respiratory Rate - Anes 40 br/min DR VICTOR M ORTIZ MD [facility] 10-31-2023 10:15-0400 Respiratory Rate - Anes 30 br/min DR VICTOR M ORTIZ MD [facility] 10-31-2023 10:04-0400 Body height [address] VICTOR M ORTIZ MD [facility] 10-31-2023 10:04-0400 Body temperature 97.88 [degF] DR VICTOR M ORTIZ MD [facility] 10-31-2023 10:04-0400 Body weight [address] VICTOR M ORTIZ MD [facility] 10-31-2023 10:04-0400 Heart rate 68 /min DR VICTOR M ORTIZ MD [facility] 07-04-2023 23:00-0400 Body temperature 97.8 [degF] [facility] 07-04-2023 23:00-0400 Diastolic blood pressure 89 mm[Hg] [facility] 07-04-2023 23:00-0400 Heart rate 78 /min [facility] 07-04-2023 23:00-0400 Respiratory rate 16 /min [facility] 07-04-2023 23:00-0400 SaO2% (BldA) [Mass fraction] 99 % [facility] 07-04-2023 23:00-0400 Systolic blood pressure 122 mm[Hg] [facility] 07-04-2023 19:59-0400 Body height 162.56 cm [facility] 07-04-2023 19:59-0400 Body mass index (BMI) [Ratio] 21.9 kg/m2 [facility] 07-04-2023 19:59-0400 Body weight 57.92 kg [facility] 12-26-2022 01:43-0400 Heart rate 75 /min [facility] 12-26-2022 01:43-0400 Respiratory rate 15 /min [facility] 12-26-2022 01:43-0400 SaO2% (BldA) [Mass fraction] 98 % [facility] 12-26-2022 00:00-0400 Diastolic blood pressure 77 mm[Hg] [facility] 12-26-2022 00:00-0400 Systolic blood pressure 129 mm[Hg] [facility] 12-25-2022 21:20-0400 Body height 162.56 cm [facility] 12-25-2022 21:20-0400 Body mass index (BMI) [Ratio] 21.1 kg/m2 [facility] 12-25-2022 21:20-0400 Body temperature 97.9 [degF] [facility] 12-25-2022 21:20-0400 Body weight 55.8 kg [facility] 03-09-2022 10:45-0500 Respiratory rate 16 /min [facility] Work Phone: 03-09-2022 09:19-0500 Body height 162.56 cm [facility] Work Phone: 03-09-2022 09:19-0500 Body mass index (BMI) [Ratio] 21.2 kg/m2 [facility] Work Phone: 03-09-2022 09:19-0500 Body temperature 97.8 [degF] [facility] Work Phone: 03-09-2022 09:19-0500 Body weight 56.24 kg [facility] Work Phone: 03-09-2022 09:19-0500 Diastolic blood pressure 68 mm[Hg] [facility] Work Phone: 03-09-2022 09:19-0500 Heart rate 86 /min [facility] Work Phone: 03-09-2022 09:19-0500 SaO2% (BldA) [Mass fraction] 100 % [facility] Work Phone: 03-09-2022 09:19-0500 Systolic blood pressure 119 mm[Hg] [facility] Work Phone: 12-17-2021 03:42-0400 Diastolic blood pressure 67 mm[Hg] [facility] Work Phone: 12-17-2021 03:42-0400 Heart rate 70 /min [facility] Work Phone: 12-17-2021 03:42-0400 Respiratory rate 18 /min [facility] Work Phone: 12-17-2021 03:42-0400 SaO2% (BldA) [Mass fraction] 97 % [facility] Work Phone: 12-17-2021 03:42-0400 Systolic blood pressure 98 mm[Hg] [facility] Work Phone: 12-16-2021 22:32-0400 Body height 162.56 cm [facility] Work Phone: 12-16-2021 22:32-0400 Body mass index (BMI) [Ratio] 21.4 kg/m2 [facility] Work Phone: 12-16-2021 22:32-0400 Body temperature 98.5 [degF] [facility] Work Phone: 12-16-2021 22:32-0400 Body weight 56.69 kg [facility] Work Phone: 11-13-2021 17:52-0400 Respiratory rate 16 /min [facility] Work Phone: 11-13-2021 15:41-0400 Body height 162.56 cm [facility] Work Phone: 11-13-2021 15:41-0400 Body mass index (BMI) [Ratio] 21.2 kg/m2 [facility] Work Phone: 11-13-2021 15:41-0400 Body temperature 97.6 [degF] [facility] Work Phone: 11-13-2021 15:41-0400 Body weight 56.24 kg [facility] Work Phone: 11-13-2021 15:41-0400 Diastolic blood pressure 70 mm[Hg] [facility] Work Phone: 11-13-2021 15:41-0400 Heart rate 88 /min [facility] Work Phone: 11-13-2021 15:41-0400 SaO2% (BldA) [Mass fraction] 98 % [facility] Work Phone: 11-13-2021 15:41-0400 Systolic blood pressure 128 mm[Hg] [facility] Work Phone: 11-02-2021 22:04-0400 Diastolic blood pressure 78 mm[Hg] [facility] Work Phone: 11-02-2021 22:04-0400 Heart rate 98 /min [facility] Work Phone: 11-02-2021 22:04-0400 Respiratory rate 17 /min [facility] Work Phone: 11-02-2021 22:04-0400 SaO2% (BldA) [Mass fraction] 98 % [facility] Work Phone: 11-02-2021 22:04-0400 Systolic blood pressure 130 mm[Hg] [facility] Work Phone: 11-02-2021 20:56-0400 Body height 162.56 cm [facility] Work Phone: 11-02-2021 20:56-0400 Body mass index (BMI) [Ratio] 20.5 kg/m2 [facility] Work Phone: 11-02-2021 20:56-0400 Body temperature 98 [degF] [facility] Work Phone: 11-02-2021 20:56-0400 Body weight 54.43 kg [facility] Work Phone: Encounters Encounter Date Encounter Type Care Provider Facility Start: 11-25-2024 End: 11-25-2024 Dr. Dex Wilkinson MD Work Phone: -Emergency Department Work Phone: Start: 11-25-2024 End: 11-25-2024 Emergency department patient visit Dr. Dex Wilkinson MD Work Phone: -Emergency Department Start: 11-23-2024 ambulatory Quang Myles [facility] Start: 11-23-2024 Quang Friend DO -[facility] Start: 11-23-2024 End: 11-23-2024 Quang Friend DO -Endoscopy Work Phone: Start: 11-23-2024 End: 11-23-[address] Dex Wilkinson MD Work Phone: -Endoscopy Start: 11-21-2024 End: 11-21-2024 Office outpatient visit 40 minutes Radu Kay MD Work Phone: [facility] Comment on above: History of pulmonary embolism (Primary Dx); Cardiomyopathy, hypertrophic nonobstructive (Multi); Tobacco use; Mild intermittent asthma without complication ([facility]) Start: 11-21-2024 End: 11-21-2024 ambulatory RADU KAY [facility] Start: 10-17-2024 End: 10-17-2024 Dr. Mercy Bishop MD -[facility] Work Phone: Start: 10-17-2024 End: 10-17-[address] Dex Wilkinson MD Work Phone: -[facility] Start: 10-03-2024 End: 10-03-[address] Dex Wilkinson MD Work Phone: -[facility] Start: 10-03-2024 End: 10-03-2024 Sujatha Olea [facility] Work Phone: Start: 09-24-2024 End: 09-24-2024 ambulatory DEEPIKA MAN [facility] Start: 09-24-2024 End: 09-24-2024 Telemedicine consultation with patient Deepika Min Yash PharmD Work Phone: [facility] Comment on above: Cardiomyopathy, hype rtrophic nonobstructive (Multi) Start: 09-20-2024 End: 09-23-2024 Evaluation and management of inpatient Rocky Everett DO Work Phone: [facility] 3 Comment on above: Acute exacerbation o f chronic heart failure (Primary Dx); Systolic congestive heart failure, unspecified HF chronicity; Pneumonia of left lower lobe due to infectious organism; Other constipation Start: 09-18-2024 End: 09-18-2024 Bárbara BUCKLEY -[facility] Work Phone: Start: 09-18-2024 End: 09-18-[address] Dex Wilkinson MD Work Phone: -[facility] Start: 09-14-2024 Dr. Emerosn Sierra MD -[facility] Work Phone: Start: 09-13-2024 ambulatory Quang Heaters Facility :[facility] Start: 09-13-2024 Dr. Emerson Sierra MD -[facility] Work Phone: Start: 09-12-2024 Quang Myles DO -[facility] Start: 09-12-2024 Dr. Emerson Sierra MD -[facility] Work Phone: Start: 09-11-2024 End: 09-14-2024 ambulatory Sergio Umaña Facility:[facility] Start: 09-11-2024 End: 09-14-[address] Dex Wilkinson MD Work Phone: -[facility] 3 Start: 09-11-2024 Evaluation and management of inpatient Dr. Dex Wilkinson MD Work Phone: -[facility] Start: 09-11-2024 End: 09-14-2024 Dr. Sergio Umaña DO -[facility] 3 Work Phone: Start: 08-28-2024 End: 08-28-[address] Dex Wilkinson MD Work Phone: [facility] Work Phone: Start: 08-28-2024 End: 08-28-2024 Quang Myles -Nuclear Medicine [facility] Work Phone: Start: 08-27-2024 End: 08-28-[address] Dex Wilkinson MD Work Phone: [facility] Work Phone: Start: 08-27-2024 End: 08-27-2024 Quang Heaters DO -[facility] Work Phone: Start: 08-27-2024 End: 08-27-2024 ambulatory Quang Heaters Facility:[facility] Start: 08-24-2024 Dr. Taylor Tejeda MD - [facility] Work Phone: Start: 08-23-2024 [facility] DO -[facility] Start: 08-23-2024 Dr. Taylor Tejeda MD - [facility] Work Phone: Start: 08-22-2024 Dr. Taylor Tejeda MD - [facility] Work Phone: Start: 08-21-2024 [facility] DO -[facility] Start: 08-20-2024 Quang Heaters DO -[facility] Start: 08-20-2024 ambulatory Lopez Larios Fac ility:[facility] Start: 08-20-2024 End: 08-24-2024 Evaluation and management of inpatient Dr. Dex Wilkinson MD Work Phone: [facility] Work Phone: Start: 08-20-2024 End: 08-24-2024 Dr. Lopez Larios DO -Progressive Care Unit Work Phone: Start: 08-15-2024 End: 08-23-2024 ambulatory RADU KAY [facility] Start: 08-15-2024 End: 08-15-2024 Office outpatient new 60 minutes Radu Kay MD Work Phone: [facility] Comment on above: Hypertrophic cardiom egaly (Primary Dx); Chronic heart failure with preserved ejection fraction (HFpEF); Cardiomyopathy, hypertrophic nonobstructive (Multi); History of pulmonary embolism; Other ascites; Atypical chest pain Start: 08-15-2024 End: 08-15-2024 Subsequent hospital visit by physician Clayton Shine220 Nonv1 Holter/Ecg Resource [facility] Comment on above: Heart failure, unspe cified Start: 08-15-2024 End: 08-15-2024 ambulatory [facility] Start: 08-11-2024 End: 08-11-2024 Dr. Dex Wilkinson MD Work Phone: -Emergency Department Work Phone: Start: 08-11-2024 End: 08-11-2024 Emergency department patient visit Dr. Dex Wilkinson MD Work Phone: [facility] Work Phone: Start: 08-10-2024 End: 08-10-2024 [facility] Start: 08-10-2024 End: 08-10-2024 Patient encounter procedure [facility] Start: 08-09-2024 End: 08-09-[address] Dex Wilkinson MD Work Phone: [facility] Work Phone: Start: 08-09-2024 End: 08-09-2024 Quang Friend DO -Laboratory Specimen Work Phone: Start: 08-08-2024 End: 08-08-[address] Dex Wilkinson MD Work Phone: [facility] Work Phone: Start: 08-08-2024 End: 08-08-2024 Quang Friend DO -Laboratory Work Phone: Start: 08-08-2024 End: 08-08-2024 Patient encounter procedure Quang Friend DO -[facility] Work Phone: Start: 08-08-2024 End: 08-08-2024 Quang Friend DO -[facility] Work Phone: Start: 08-08-2024 End: 08-09-[address] Dex Wilkinson MD Work Phone: [facility] Work Phone: Start: 08-08-2024 End: 08-08-2024 ambulatory Quang Myles Facility:[facility] Start: 07-30-2024 End: 07-30-2024 Patient Outreach Quynh Chang [facility] Work Phone: Pharmacy Comment on above: Transition Of Care ( TCM Pharmacy-Hospital discharge 07/27/24) Start: 07-26-2024 End: 07-26-2024 Evaluation and management of inpatient Pulm Fct Lab J-2 Pulmonary Medicine Comment on above: Preoperative examina tion, unspecified (Primary Dx) Start: 07-26-2024 End: 07-26-2024 Preprocedural examination done Pulm -[address] [facility] Start: 07-25-2024 End: 07-25-2024 Evaluation and management of inpatient Ip Transesophageal Echo Cardiology Comment on above: History of transesop hageal echocardiography (MICKI) (Primary Dx) Start: 07-24-2024 End: 07-27-2024 Evaluation and management of inpatient MER[facility] BISHOP Facility:[facility] Start: 07-24-2024 Non-patient / Non-visit Dr. Willian Salcedo [facility] Work Phone: Start: 07-24-2024 Dr. Willian Orozco [facility] Work Phone: Start: 07-23-2024 ambulatory Breann Loera Facility: [facility] Start: 07-23-2024 ambulatory Sergio Knowles ty:[facility] Start: 07-23-2024 Non-patient / Non-visit Dr. Mercy Bishop MD -[facility] Start: 07-23-2024 Dr. Mercy Bishop MD [facility] Start: 07-22-2024 Non-patient / Non-visit Dr. Saman ureña MD -[facility] Start: 07-22-2024 Dr. Saman Clay MD [facility] Start: 07-22-2024 Non-patient / Non-visit Dr. Willian Salcedo [facility] Work Phone: Start: 07-22-2024 Dr. Willian Orozco [facility] Work Phone: Start: 07-21-2024 Non-patient / Non-visit Dr. Saman ureña MD -[facility] Start: 07-21-2024 Dr. Saman Clay MD -[facility] Start: 07-21-2024 Non-patient / Non-visit Dr. Willian ritter DO [facility] Work Phone: Start: 07-21-2024 Dr. Willian Ovalles DO [facility] Work Phone: Start: 07-21-2024 ambulatory Sergio Santiago ty:[facility] Start: 07-21-2024 End: 07-24-2024 Dr. Willian LEOProgressive Jere Un it Work Phone: Start: 07-20-2024 End: 07-24-2024 Evaluation and management of inpatient Dr. Sergio Umaña DO Progressive Care Unit Work Phone: Start: 07-12-2024 ambulatory Quang Myles Facility :[facility] Start: 07-12-2024 Non-patient / Non-visit Quang Yung meaghan DO -[facility] Start: 07-12-2024 Quang Greg -[facility] Start: 07-12-2024 End: 07-12-2024 Admission to same day surgery center Quang Myles DO -Endoscopy Work Phone: Start: 07-12-2024 End: 07-12-2024 Quang Myles DO -Endoscopy Work Phone: Start: 07-12-2024 End: 07-12-2024 ambulatory Quang Myles Facility:[facility] Start: 07-10-2024 End: 07-10-2024 Patient encounter procedure Xochitl BUCKLEY -[facility] Work Phone: Start: 07-10-2024 End: 07-10-2024 Xochitl BUCKLEY -[facility] Work Phone: Start: 07-10-2024 End: 07-10-2024 ambulatory Xochitl BUCKLEY Facility:[facility] Start: 07-06-2024 End: 07-06-2024 Evaluation and management of inpatient UNKNOWN PROVIDER Facility:[facility] Start: 07-04-2024 End: 07-08-2024 Evaluation and management of inpatient UNKNOWN PROVIDER Facility:[facility] Start: 07-04-2024 End: 07-04-2024 ambulatory Jose Francisco Santamaria Facility:[facility] Start: 07-04-2024 End: 07-04-[address] Jose Francisco Santamaria MD -[facility] Work Phone: Start: 07-04-2024 End: 07-04-2024 Dr. Jose Francisco Santamaria MD -[facility] Work Phone: Start: 07-03-2024 End: 07-03-2024 Emergency department patient visit Dr. Nabor Frey DO -Emergency Department Work Phone: Start: 07-03-2024 End: 07-03-2024 Patient encounter procedure Bárbara BUCKLEY -[facility] Work Phone: Start: 07-03-2024 End: 07-03-2024 Dr. Nabor Frey DO -Emergency Departme nt Work Phone: Start: 07-03-2024 End: 07-03-2024 ambulatory Bárbara Ureña Facility:[facility] Start: 07-01-2024 End: 07-01-2024 Babar Wood DO [...] Evaluation and management of inpatient UNKNOWN PROVIDER Facility:[facility] Start: 05-11-2024 End: 05-12-2024 Dr. Bimal Cortez MD -Emergency Depart ent Work Phone: Start: 05-11-2024 End: 05-12-2024 Emergency department patient visit Dr. Bimal Cortez MD -Emergency Department Work Phone: Start: 03-28-2024 End: 03-28-2024 ambulatory Dex Wilkinson Facility:[facility] Start: 03-28-2024 End: 03-28-[address] Jose Francisco Santamaria MD -[facility] Work Phone: Start: 10-31-2023 End: 10-31-[address] VICTOR M ORTIZ MD Facility:[facility] Start: 10-31-2023 End: 10-31-[address] VICTOR M ORTIZ MD [facility] Start: 07-04-2023 End: 07-04-2023 Emergency department patient visit [facility]-Emergency Department Work Phone: Start: 07-04-2023 ambulatory Angela Krishna RN [facility] Start: 07-04-2023 Patient encounter procedure Angela Krishna RN [facility] Start: 12-25-2022 End: 12-26-2022 [facility] Start: 03-09-2022 End: 03-09-2022 Emergency department patient visit [facility]-Emergency Department Start: 12-16-2021 End: 12-17-2021 Emergency department patient visit [facility]-Emergency Department Start: 11-13-2021 End: 11-13-2021 Emergency department patient visit [facility]-Emergency Department Start: 11-02-2021 End: 11-02-2021 Emergency department patient visit [facility]-Emergency Department Start: 08-25-2017 End: 08-25-2017 [facility] Procedures Date Procedure Procedure Detail Performing Clinician Start: 11-25-2024 Urine microscopy: red cells Dr. Dex Wilkinson MD Work Phone: Start: 11-25-2024 Urnls dip stick/tablet reagent auto microscopy Dr. Dex Wilkinson MD Work Phone: Start: 11-25-2024 Blood count smear mcrscp w/mnl difrntl wbc count Dr. Dex Wilkinson MD Work Phone: Start: 11-25-[address] Kd Wilkinson MD Work Phone: Start: 11-25-2024 Mean corpuscular hemoglobin concentration determination Dr. Dex Wilkinson MD Work Phone: Start: 11-25-2024 Platelet mean volume determination Dr. Dex Wilkinson MD Work Phone: Start: 11-25-[address] Dex Wilkinson MD Work Phone: Start: 11-25-2024 Computed tomography of abdomen and pelvis with [...] Dex Wilkinson MD Work Phone: Start: 08-08-2024 PATTERN FINISHER antibody measurement Dr. Dex Wilkinson MD Work Phone: Start: 08-08-[address] Dex Wilkinson MD Work Phone: Start: 08-08-[address] Dex Wilkinson MD Work Phone: Start: 08-08-[address] Dex Wilkinson MD Work Phone: Start: 07-24-2024 Antibody screen [facility] Comment on above: Order Comment: Specimen Type: BLOOD SPEC IMEN Ordering Facility: [facility] Address: [address] [place] [address] Performed By: #### 5 [id number] #### [facility] CLIA [id number] [address] [place] [address] [place] Start: 07-23-2024 Blood [...] ORTIZ MD Mastectomy of left breast DR VICTORM ORTIZ MD MRI guided ablation of uterine fibroid DR VICTOR M ORTIZ MD Plan of Treatment Date Care Activity Detail Author Start: 07-12-2034 Screening for malignant neoplasm of colon [facility] Start: 09-15-2029 Zoster Vaccines (1 of 2) Zoster Vaccines (1 of 2) [facility] Start: 09-23-2025 Creatinine measurement Creatinine Level [facility] Start: 09-23-2025 Diabetes mellitus screening Diabetes Screening [facility] Start: 09-23-2025 Potassium measurement Potassium Level [facility] Start: 09-21-2025 Echocardiography Echocardiogram [facility] Start: 07-25-2025 Diabetes mellitus screening Diabetes Screening [facility] Start: 01-23-2025 End: 01-23-2025 Patient encounter procedure 01/23/2025 2:00 PM EST Office Visit [facility] [address] [place] [phone] Radu Kay MD [address] [facility] [address] [place] [address] [facility] Start: 12-05-2024 End: 11-21-2025 Basic metabolic 2000 panel - Serum or Plasma Basic metabolic panel Lab Routine Cardiomyopathy, hypertrophic nonobstructive (Multi) History of pulmonary embolism Expected: 12/05/2024 (Approximate), Expires: 11/21/2025 [facility] Service Area Work Phone: Comment on above: Expected: 12/05/2024 (Approximate), Expi res: 11/21/2025 Start: 12-05-2024 End: 11-21-2025 Natriuretic peptide B [Mass/volume] in Blood B-Type Natriuretic Peptide Lab Routine Cardiomyopathy, hypertrophic nonobstructive (Multi) History of pulmonary embolism Expected: 12/05/2024, Expires: 11/21/2025 [facility] Work Phone: Comment on above: Expected: 12/05/2024, Expires: Start: 11-23-2024 Patient discharge [facility] Start: 11-21-2024 End: 11-21-2025 Basic metabolic 2000 panel - Serum or Plasma Basic metabolic panel Lab Routine Cardiomyopathy, hypertrophic nonobstructive (Multi) History of pulmonary embolism Expected: 11/21/2024 (Approximate), Expires: 11/21/2025 [facility] Work Phone: Comment on above: Expected: 11/21/2024 (Approximate), Expi res: 11/21/2025 Start: 11-21-2024 End: 11-21-2025 Natriuretic peptide B [Mass/volume] in Blood B-Type Natriuretic Peptide Lab Routine Cardiomyopathy, hypertrophic nonobstructive (Multi) History of pulmonary embolism Expected: 11/21/2024 (Approximate), Expires: 11/21/2025 [facility] Work Phone: Comment on above: Expected: 11/21/2024 (Approximate), Expi res: 11/21/2025 Start: 11-21-2024 End: 11-21-2024 Patient encounter procedure 11/21/2024 10:30 AM EDT Office Visit [facility] [address] [place] [phone] Radu Kay MD [address] [facility] [address] [place], [place] [id number] [facility] Start: 11-12-2024 COVID-19 Vaccine ( season) COVID-19 Vaccine ( season) [facility] Start: 11-12-[address] [facility] Start: 10-29-2024 End: 10-29-2024 Telemedicine consultation with patient 10/29/2024 2:40 PM EDT Telemedicine [facility]3] [facility] [address] [place] [phone] Deepika Man, PharmD [address] [facility] [address] [place] [address] [facility]3] [facility] Start: 09-24-2024 End: 09-24-2024 Telemedicine consultation with patient 09/24/2024 2:40 PM EDT Telemedicine [facility]3] [facility] [address] [place] [phone] Deepika Man, PharmD [address] [facility] [address] [place] [address] [facility]3] [facility] Start: 09-14-2024 Patient discharge [facility] Start: 09-12-2024 Application of intermittent pneumatic compression device [facility] Start: 09-12-2024 Following clinical pathway protocol [facility] Start: 09-12-2024 Assessment of risk of venous thromboembolism [facility] Start: 09-12-2024 Insertion of catheter into peripheral vein [facility] Start: 09-12-2024 Measuring intake and output [facility] Start: 09-12-2024 Oxygen therapy [facility] Start: 09-12-2024 Providing care according to standard [facility] Start: 09-12-2024 Provision of activity privileges [facility] Start: 09-12-2024 Referral to gastroenterology service [facility] Start: 09-12-2024 Referral to service [facility] Start: 09-12-2024 [facility] Start: 09-11-2024 Verification routine [facility] Start: 09-11-2024 Admission procedure [facility] Start: 09-11-2024 Hospital admission, emergency, from emergency room, medical nature [facility] Start: 08-27-2024 Magnetic resonance cholangiopancreatography [facility] Start: 08-27-2024 MR Biliary ducts and Pancreatic duct [facility] Start: 08-24-2024 Patient discharge [facility] Start: 08-22-2024 Provision of activity privileges [facility] Start: 08-20-2024 Following clinical pathway protocol [facility] Start: 08-20-2024 Ambulation without limitation [facility] Start: 08-20-2024 Assessment of risk of venous thromboembolism [facility] Start: 08-20-2024 Insertion of catheter into peripheral vein [facility] Start: 08-20-2024 Measuring intake and output [facility] Start: 08-20-2024 Providing care according to standard [facility] Start: 08-20-2024 Referral to gastroenterology service [facility] Start: 08-20-2024 [facility] Start: 08-20-2024 Hospital admission, emergency, from emergency room, medical nature [facility] Start: 08-20-2024 Verification routine [facility] Start: 08-20-2024 Admission procedure [facility] Start: 08-20-2024 Patient referral to dietitian [facility] Start: 08-11-2024 [facility] Start: 08-09-2024 [facility] Start: 08-09-2024 Ova OR parasites identification [facility] Start: 08-08-2024 [facility] Start: 07-26-2024 End: 07-26-2024 Patient encounter procedure Pulmonary Medicine Comment on above: NEEDS TRANSPORT IP AO, RA, NO DRIPS, REG WC, NO PRECAUTIONS/FEVERS //KP Start: 07-24-2024 Oxygen therapy [facility] Start: 07-24-2024 Patient discharge [facility] Start: 07-23-2024 Referral to gastroenterology service [facility] Start: 07-22-2024 Bacteria identified in Blood by Culture Blood Culture [facility] Start: 07-22-2024 End: 07-22-2024 [facility] Start: 07-22-2024 Inhalation therapy procedure [facility] Start: 07-21-2024 Provision of activity privileges [facility] Start: 07-21-2024 Following clinical pathway protocol [facility] Start: 07-21-2024 Assessment of risk of venous thromboembolism [facility] Start: 07-21-2024 Catheterization of vein [facility] Start: 07-21-2024 Insertion of catheter into peripheral vein [facility] Start: 07-21-2024 Measuring intake and output [facility] Start: 07-21-2024 Providing care according to standard [facility] Start: 07-21-2024 Provision of activity privileges [facility] Start: 07-21-2024 Referral to sales communications manager [facility] Start: 07-21-2024 Referral to service [facility] Start: 07-21-2024 [facility] Start: 07-21-2024 Verification routine [facility] Start: 07-21-2024 Admission procedure [facility] Start: 07-20-2024 Hospital admission, emergency, from emergency room, medical nature [facility] Start: 07-20-2024 [facility] Start: 07-12-2024 Colonoscopy w/biopsy single/multiple [facility] Start: 07-12-2024 Endoscopy upper small intestine w/biopsy [facility] Start: 07-12-2024 Patient discharge [facility] Start: 07-03-2024 [facility] Start: 07-01-2024 [facility] Start: 05-12-2024 [facility] Start: 02-08-2024 Screening for malignant neoplasm of cervix Cervical Cancer Screening [facility] Start: 11-13-2023 Covid-19 Vaccine ( season) Covid-19 Vaccine () [facility] Start: 07-04-2023 [facility] Start: 12-26-2022 [facility] Start: 12-26-2022 [facility] Start: 12-25-2022 [facility] Start: 11-07-2022 Urine microalbumin profile DTaP,Tdap,Td Vaccine (2 - Td or Tdap) [facility] Start: 12-16-2021 [facility] Work Phone: Start: 2019 Screening for malignant neoplasm of breast [facility] Start: 04-05-2012 Pneumococcal vaccination Pneumococcal Vaccine (2 of 2 - PCV) [facility] Start: 04-05-2012 Pneumococcal Vaccine: Pediatrics and At-Risk Adult Patients (2 of 2 - PCV) Pneumococcal Vaccine: Pediatrics and At-Risk Adult Patients (2 of 2 - PCV) [facility] Start: 09-15-2006 HPV Vaccines (1 - 3-dose standard series) HPV Vaccines (1 - 3-dose standard series) [facility] Start: 09-15-2001 DTaP/Tdap/Td Vaccines (1 - Tdap) DTaP/Tdap/Td Vaccines (1 - Tdap) [facility] Start: 09-15-2000 Screening for malignant neoplasm of cervix [facility] Start: 09-15-1998 Hepatitis A Vaccines (1 of 2 - Risk 2-dose series) Hepatitis A Vaccines (1 of 2 - Risk 2-dose series) [facility] Start: 09-15-1998 Hepatitis B Vaccine (1 of 3 - 19+ 3-dose series) Hepatitis B Vaccine (1 of 3 - 19+ 3-dose series) [facility] Start: 09-15-1998 Hepatitis B Vaccines (1 of 3 - 19+ 3-dose series) Hepatitis B Vaccines (1 of 3 - 19+ 3-dose series) [facility] Start: 09-15-1997 Annual PCP Team Chronic Disease Visit Annual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 mg PO BID spironolactone 25 mg tablet 25 mg PO DAILY Patient Comments: takes when your water weight is less than 5lbs for week varenicline tartrate 0.5 mg (11)- 1 mg (42) tablets,dose pack PO Patient Comments: PT HAS NOT STARTED YET buprenorphine 15 mcg/hour patch weekly 1 patch topical QWEEK Primary Care Provider: Dex Wilkinson Referrals: Dex Wilkinson MD [Primary Care Provider] - Quang Myles DO [Med Staff - Active Staff] - Activity Restrictions/Additional Instructions: Thank you for trusting us with your care today! Please take Tylenol (2 pills, 650 mg), ibuprofen (2 pills, 400 mg) every 6 hoursas needed for pain and fever control. Please return to the emergency department if your symptoms change or worsen. Please follow with your primary care physician for further outpatient evaluationand management. Print Language: Armenian Disposition Disposition: Home, Self Care What to do if you have Problems For any increased pain, shortness of breath, bleeding, nausea or vomiting, chestpain, or any unexpected problems, contact your Primary Care Provider. Call [facility] ([phone]) or report to the closest Emergency Room. Call 911 if necessary. 11/25/247 <Electronically signed by Carlos Nair DO> Cosigner Signature (if applicable): CC: Dr. Dex Wilkinson MD ~ Signed [facility] Work Phone: 1(476) 208-394109-12-2025 History and physical note Author Quang Myles [facility] Note Date/Time November 23, 2024 1:35pm [facility] Medical Records Department [address] [place] [id number] History & Physical Exam 11/23/24 1332 MR#: [id number] Acct: [id number] Name: MICHELLE MITCHELL Rep #:[id number] : 1980 44 From: Quang Myles DO PCP: Dr. Dex Wilkinson MD Status:R [facility] Location: [place] [address] HPI - General General Date of Admission: 11/23/24 Date of Service: 11/23/24 Chief Complaint: Biliary stent removal HPI Narrative MICHELLE MITCHELL, is a 44 F who presents with the Chief Complaint: abd pain [facility] 4..25 with upper abd pain with associated vomiting. [...] of Oddi syndrome, cholelithiasis and ampullary lesion. [facility] ED 08.11.24 [facility] admission 08.21.24-08.24.24 with abd pain. Work up [...] nerve block. Did not help with pain [facility] admission 7.2.25-7.4.25 CT abd/pelvis 7.1.25;Basilar atelectasis. Mildly enlarged heart. Hepatomegaly and diffuse [...] she is having increased swelling and sob. 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 SHe endorses worsening sob and swelling. I advised she call her sales communications manager or present to the ED if symptoms persist. SHe was scheduled for ERCP with stent pull. I have started her on hyoscyamine daily. She endorses abnormal uterine bleeding with noperiod for 17 years until recently. I have referred to OBGYN regarding this. -ERCP scheduled -f/u with Dr. Dennison -Advised she f/u with cardiology -Start hyoscyamine -refered to OBGYN (2) Abnormal uterine bleeding: Status: Acute (3) S/P ERCP: Status: Acute Orders: Orders CBC W/Diff, Automated Today G89.29 - Other chronic pain, R10.9 - Unspecified abdominal pain Comprehensive Metabolic Profil Today G89.29 - Other chronic pain, R10.9 - Unspecified abdominal pain Referrals CHARGE OPERATOR N93.9 - Abnormal uterine and vaginal bleeding, unspecified Medications: New hyoscyamine sulfate 0.125 mg PO BID-QID 60 tabs 1RF dyspepsia 11/23/24 1335 <Electronically signed by Quang Myles DO> Cosigner Signature (if applicable): CC: Dr. Dex Wilkinson MD; Quang Myles DO~ Signed [facility] Work Phone: 1(804) 984-593209-12-2025 Radiology Diagnostic study [facility]09-12-2025 Procedure [facility]09-12-2025 Procedure [facility]09-12-2025 Consult note Author Willian Munoz [facility] Note Date/Time November 23, 2024 12:39pm [facility] Medical Records Department [address] [place] [address] Pre-Anesthesia Evaluation 11/23/24 1233 MR#: [id number] Acct: [id number] Name: MICHELLE MITCHELL Rep #:[id number] : 1980 44 From: Willian Munoz MD PCP: Dr. 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 member Hx Hospitalization Yes: 05/2024 ABSCESS TURNED 10/24/24 [...] take am of surgery PONV PONV - cleaning crew member: PONV - cleaning crew member Female Yes 10/24/24 09:44 HX of Motion [...] 10/17/24 15:31 Respiratory Assessment Respiratory Assessment - cleaning crew member: Respiratory Tract Infection Hx - cleaning crew member Hx Respiratory Tract Infection No 10/24/24 09:44 STOP Sleep Apnea STOP Sleep Apnea - cleaning crew member: STOP Sleep Apnea - cleaning crew member Hx Hypertension No 10/24/24 09:44 Hx Sleep [...] Tobacco Use History Tobacco Use History - cleaning crew member: Tobacco Use History - cleaning crew member Tobacco Use Smoking Status Current every day smoker 10/24/24 09:44 Hx Tobacco Use Yes 10/24/24 09:44 Years Smoking Packs Smoked per Day Smoking Cessation Date was within the last 15 years Hx Smoking Cessation Date Hx Smoking Cessation No 10/24/24 09:44 Counseling Hematologic Medial History Hematologic Hx - cleaning crew member: Hematologic 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 Hx of Blood Transfusion No 10/24/24 09:44 [...] confused, unrespo /Reproduction History /Reproductive History - cleaning crew member: /Reproductive Hx- cleaning crew member Hx Now No 10/24/24 09:44 Gestational Age [...] pain Pulmonary embolism Endometrial cancer Cervical cancer 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 [address] Echo Complete 07/21/24 1046 MR#: [id number] Acct: [id number] Name: MICHELLE MITCHELL Rep #: [id number] : 1980 43 From: Saman Clay MD Attending Dr: Dr. Willian Mccarthy) and Cardiac Angiogram Addt'l Information Additional Findings: non spec intra vent abn, sr, non spec T wave abn Review of Systems (Anesthesia) ROS Narrative System reviewed and no additional complaints, except as documented. 11/23/24 1239 <Electronically signed by Willian Munoz MD> Date _ [facility] Signature: Date CC: ~ Signed [facility] Work Phone: 1(251) 702-452709-12-2025 [facility]09-10-2025 History of Present illness Narrative* Radu Kay MD - 11/21/2024 10:30 AM EDT Advanced Heart Failure Clinic Note CHIEF COMPLAINT: No chief complaint on file. Primary Care Physician: Dex Wilkinson MD School Counsellor- Dario ([facility]) GI- Friend HISTORY OF PRESENT ILLNESS: Michelle Mitchell is a 44 y.o. female with hypertrophic cardiomyopathy who presents as a new patient Briefly she was apparently diagnosed with hypertrophic cardiomyopathy after an episode of syncope underwent ICD placement in 2006 with lead revision in 2008, and then explant of the entire device with reimplantation in 2016, she was followed with a local sales communications manager Dr Bishop (was following at [facility] she moved to [place] in 2021), notably she was admitted with chest pressure to [facility] in 2014 and 2016 felt to be due to her ICD It appears that she was admitted with a leg abscess in May 2024 with an ER visit for abdominal pain the question of IBD was raised and she underwent a biopsy during EGD, she was admitted with dyspnea echocardiogram showing possible vegetation and was transferred to [facility], her blood cultures were negative [...] herself 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 No edema but does have cough and bloating At her last visit we started spironolactone 25mg and tried to start jardiance 10mg but she had issues with approval however was admitted to [facility] in 2023 she did receive IV diuresis [...] : no shocks, 5 years of battery, [employer] single lead Monitors/restricts salt/fluid : not much [...] Rate 09/21/2024 65 Atrial Rate 09/21/2024 65 ND Interval 09/21/2024 162 QRS Duration 09/21/2024 94 QT Interval 09/21/2024 412 QTC Calculation(Bazett) 09/21/2024 428 P [place] 09/21/2024 -14 R [place] 09/21/2024 266 T [place] 09/21/2024 59 QRS Count 09/21/2024 11 Q Onset 09/21/2024 203 P Onset 09/21/2024 122 P Offset 09/21/2024 191 T Offset 09/21/2024 409 QTC Fredericia 09/21/2024 422 BNP 09/21/2024 >4,700 (H) Troponin I, High Sensiti* 09/21/2024 49 (H) Color, Urine 09/21/2024 Light-Yellow Appearance, Urine 09/21/2024 Clear Specific [place], Urine 09/21/2024 1.023 pH, Urine 09/21/2024 6.5 [...] Rate 08/23/2024 60 Atrial Rate 08/23/2024 60 ND Interval 08/23/2024 170 QRS Duration 08/23/2024 102 QT Interval 08/23/2024 436 QTC Calculation(Bazett) 08/23/2024 436 P [place] 08/23/2024 17 R [place] 08/23/2024 -73 T [place] 08/23/2024 83 QRS Count 08/23/2024 10 Q [...] CHOL, LDLF, HDL, TRIG in the last 45417 hours. BNP Date Value Ref Range Status 09/21/2024 >4,700 (H) 0 - 99 pg/mL Final DIAGNOSTIC STUDIES REVIEWED: EKG: sinus rhythm with LAE bifid p wave, septal q Encounter Date: 09/20/24 ECG 12 lead Result Value Ventricular Rate 65 Atrial Rate 65 ND Interval 162 QRS Duration 94 QT Interval 412 QTC Calculation(Bazett) 428 P [place] -14 R [place] 266 T [place] 59 QRS Count 11 Q Onset 203 [...] and clinical correlation Confirmed by Roselyn San ([id number]) on 09/25/2024 7:52:09 PM ECHO MICKI 07/25/24: [...] the prior echocardiographic exam performed on 04/25/2021 ([facility]). Mobile echodensity reported today as above. [...] lead vegetation this was extensively evaluated at [facility] appears to be due to [...] Center 11/21/2024 10:30 AM Radu Kay MD [id number] [place] Radu De Dios IV, MD Heart Failure, Heart Transplant and Mechanical Circulatory Support [1] Allergies Allergen Reactions Reliance Anaphylaxis Shellfish Derived Anaphylaxis Tigan [Trimethobenzamide] Anaphylaxis [...] history on file. [7] Allergies Allergen Reactions Reliance Anaphylaxis Shellfish Derived Anaphylaxis Tigan [Trimethobenzamide] Anaphylaxis [...] headaches. Hospitalizations: 09/20-09/23/24 ADHF documented in this [facility] Work Phone: [phone]) 748-695209-10-2025 Instructions* Patient Instructions* Radu Kay MD - 11/21/2024 10:30 AM EDT To reach Dr. Kay's office please call [phone] ([place]). . Call [phone] to schedule an appointment. You may also contact the HF RNs at [email or web address] Thank you for coming to your appointment today. If you have any questions or need cardiac medication refills, please call the Heart Failure Office at [phone] option 6. No changes today I will call your PCP about the Chantix Blood in 2 weeks unless get it from [facility] in 2 months documented in this [facility] Work Phone: [phone]) 343-461507-23-2025 [facility] Evaluation + Plan note* Assessment & Plan Note - Deepika Man, IzzyD - 09/24/2024 3:12 PM EDTAssociated Problem(s): Cardiomyopathy, hypertrophic nonobstructive (Multi) Patient is currently on 2/4 GDMT Metoprolol XL 25mg every day Spironolactone 25mg every day (SCr 0.92, eGFR 78, K 3.8 (09/23/24)) START Jardiance 10mg every day for GDMT optimization Monitor BP, BMP, and HF symptoms. [facility] Work Phone: [phone]) 595-106407-14-2025 Miscellaneous Notes* Assessment & Plan Note - Deepika Man, PharmD - 09/24/2024 3:12 PM EDTAssociated Problem(s): Cardiomyopathy, hypertrophic nonobstructive (Multi) Patient is currently on 2/4 GDMT Metoprolol XL 25mg every day Spironolactone 25mg every day (SCr 0.92, eGFR 78, K 3.8 (09/23/24)) START Jardiance 10mg every day for GDMT optimization Monitor BP, BMP, and HF symptoms. documented in this encounterGrand [facility] Work Phone: [phone] 502-445707-14-2025 History of Present illness Narrative* Deepika Man PharmD - 09/24/2024 2:40 PM EDT Images from the original note were not included. Pharmacist Clinic: Cardiology Management Mcihelle J Albadelmi is a 44 y.o. female was referred [...] Documentation Review Audit Reviewed by Deepika Man, IzzyD (Pharmacist) on 09/24/24 at 1444 Medication Order Taking? Sig Documenting Provider Last Dose Status Discontinued 09/23/241755 Discontinued 09/23/241755 Discontinued 09/23/241755 albuterol (Ventolin HFA) 90 mcg/actuation inhaler [id number] Inhale 2 puffs every 6 hours if needed for wheezing. Historical ProviderMD Active ALPRAZolam (Xanax) 0.5 mg tablet [id number] Yes Take 1 tablet (0.5 mg) by mouth 2 times a day. Historical ProviderMD Active Discontinued 09/23/241755 Patient not taking: Discontinued 09/21/24918 Discontinued 09/23/241755 doxycycline (Vibramycin) 100 mg capsule [id number] Yes Take 1 capsule (100 mg) by mouth every 12 hours for 4 days. Take with a full glass of water and do not lie down for at least 30 minutes after. Rishabh El MD Active empagliflozin (Jardiance) 10 mg tablet [id number] Take 1 tablet (10 mg) by mouth once daily. Patient not taking: Reported on 09/24/2024 Radu Kay MD Active Discontinued 09/23/241755 Discontinued 09/23/241755 furosemide (Lasix) 20 mg tablet [id number] Yes Take 1 tablet (20 mg) by mouth once daily. Patient taking differently: Take 1 tablet (20 mg) by mouth once daily as needed (edema). Historical ProviderMD Active Discontinued 09/23/241755 Discontinued 09/23/241755 Discontinued 09/23/241755 Discontinued 09/23/241755 hyoscyamine (Anaspaz, Levsin) 0.125 mg tablet [id number] Yes 1 tablet (0.125 mg). Patient taking differently: Take 1 tablet (0.125 mg) by mouth once daily. Historical ProviderMD Active Discontinued 09/23/241755 Discontinued 09/23/241755 Patient not taking: Discontinued 09/21/24918 Discontinued 09/23/241755 metoprolol succinate XL (Toprol-XL) 25 mg 24 hr tablet [id number] Yes Take 1 tablet (25 mg) by mouthonce daily. Do not crush or chew. Historical MD Mario Active Discontinued 09/23/241755 Discontinued 09/23/241755 pantoprazole (ProtoNix) 40 mg EC tablet [id number] Yes Take 1 tablet (40 mg) by mouth once daily in the morning. Take before meals. Do not crush, chew, or split. Patient taking differently: Take 1 tablet (40 mg) by mouth 2 times a day. Do not crush, chew, or split. Historical MD Mario Active Discontinued 09/23/241755 psyllium (Metamucil) 3.4 gram packet [id number] Yes Take 1 packet by mouth once daily. Patient taking differently: Take 1 packet by mouth once daily as needed (constipation). Historical ProviderMD Active Discontinued 09/23/241755 sennosides-docusate sodium (Pia-Colace) 8.6-50 mg tablet [id number] Take 1 tablet by mouth once daily at bedtime for 5 days. Patient not taking: Reported on 09/24/2024 Rishabh El MD Active spironolactone (Aldactone) 25 mg tablet [id number] Yes Take 1 tablet (25 mg) by mouth once daily. Radu Kay MD Active sucralfate (Carafate) 1 gram tablet [id number] Yes Take 1 tablet (1 g) by mouth 2 times a day. Historical MD Mario Active Discontinued 09/23/241755 Discontinued 09/21/24922 zolpidem (Ambien) 10 mg tablet [id number] Yes Take 1 tablet (10 mg) by mouth as needed at bedtime for sleep. Orly Martin MD Active Discontinued 09/23/241755 DISEASE MANAGEMENT ASSESSMENT: CHF [...] 5 pounds in a week), contact their sales communications manager - Answered all patient questions and concerns [...] 2024. For now sent patient's rx to [facility] for delivery and use of copay [...] Pharmacist follow up: 10/29/24 Type of Encounter: Virtual Deepika Man PharmD Verbal consent to manage patient's drug therapy was obtained from the patient . They were informed they may decline to participate or withdraw from participation in pharmacy services at any time. Continue all meds under the continuation of care with the referring provider and clinical pharmacy team. [1] Allergies Allergen Reactions Reliance Anaphylaxis Shellfish Derived Anaphylaxis Tigan [Trimethobenzamide] Anaphylaxis [...] BID Boo Saeed MD 0.5 mg at 09/23/24 0830 [DISCONTINUED] doxycycline (Vibra-Tabs) tablet 100 mg 100 mg oral q12h PIA Rishabh El MD 100 mg at 09/23/24 0831 [DISCONTINUED] empagliflozin (Jardiance) tablet 10 mg 10 mg oral Daily Boo Saeed MD 10 mg at 09/23/24 0830 [DISCONTINUED] enoxaparin (Lovenox) syringe 40 mg 40 mg subcutaneous Daily Rishabh El MD 40 mg at 09/23/24 0831 [DISCONTINUED] furosemide (Lasix) injection 40 mg 40 mg intravenous q12h Boo Saeed MD 40 mgat 09/23/24 0952 [DISCONTINUED] HYDROmorphone (Dilaudid) injection 0.2 mg 0.2 mg intravenous q6h PRN Rishabh El MD [DISCONTINUED] HYDROmorphone (Dilaudid) injection 0.5 [...] Daily Boo Saeed MD 1 tablet at 09/23/24 0831 [DISCONTINUED] metoprolol succinate XL (Toprol-XL) 24 hr tablet 25 mg 25 mg oral Daily Rishabh El MD 25 mg at 09/23/24 0830 [DISCONTINUED] ondansetron (Zofran) injection 4 mg 4 [...] 10 mg at 09/21/242131 documented in this encounterGrand [facility] Work Phone: [phone] Nurse Note* Kaela Trejo RN - 09/23/2024 3:48 PM EDT Patient with and given discharge instructions to go home . No questions verbalized. [facility]07-13-2025 Nurse Note* Kaela Trejo RN - 09/23/2024 3:48 PM EDT Patient with and given discharge instructions to go home . No questions verbalized. documented in this encounterGrand [facility] Work Phone: [phone] Plan of care note* Care Plan - [...] improvement of dyspnea/breathlessness this shift Outcome: Progressing [facility] Work Phone: [phone]) 442-802107-13-2025 Miscellaneous Notes* Care Plan - Kaela Trejo [...] Patient is full code documented in this [facility] Work Phone: [phone]) [phone] History of Present illness Narrative* Jaxson Osorio [...] 5.5 4.3 - 5.6 % Final Comment: [place] Diabetes Association guidelines indicate that patients with HgbA1c in the range 5.7-6.4% are at increased risk for development of diabetes, and intervention by lifestyle modification may be beneficial. HgbA1c greater or equal to 6.5% is considered diagnostic of diabetes. 04/25/2021 08:44 AM 5.2 4.3 - 5.6 % Final Comment: [place] Diabetes Association guidelines indicate that patients with [...] leg abscess, migraine. She presented to ED [facility] on 09/21/2024 complaining of progressively worsening [...] acute ischemic changes. - Echo (07/2024 - [facility]): - The left ventricle is [...] the prior echocardiographic exam performed on 04/25/2021 ([facility]). Mobile echodensity reported today as above. [...] 5.5 4.3 - 5.6 % Final Comment: [place] Diabetes Association guidelines indicate that patients with HgbA1c in the range 5.7-6.4% are at increased risk for development of diabetes, and intervention by lifestyle modification may be beneficial. HgbA1c greater or equal to 6.5% is considered diagnostic of diabetes. 04/25/2021 08:44 AM 5.2 4.3 - 5.6 % Final Comment: [place] Diabetes Association guidelines indicate that patients with [...] leg abscess, migraine. She presented to ED [facility] on 09/21/2024 complaining of progressively worsening [...] # hypertrophic obstructive cardiomyopathy / Heart Failure [facility]ACC stage C with recovered LVEF 35% --> 55% / NYHA Classification III - BNP > 4,700 - Trop 48 - 49. - Patient looks warm and wet. - EKG showed normal sinus rhythm with incomplete RBBB and no signs of acute ischemic changes. - Echo (07/2024 - [facility]): - The left ventricle is normal in [...] the prior echocardiographic exam performed on 04/25/2021 ([facility]). Mobile echodensity reported today as above. [...] G Left Forearm (Active) Site Assessment Clean;Dry;Intact 07/12/25 0825 Dressing Status Clean;Dry;Occlusive 09/22/24824 Number of days: [...] kidney stones hematuria. COMPARISON: 09/21/2024 ACCESSION NUMBER(S): [id number] ORDERING CLINICIAN: RISHABH EL TECHNIQUE: CT of [...] Giacomo Soriano 09/22/2024 1:15 PM Dictation workstation: [id number] CT abdomen pelvis w IV contrast Result Date: 09/21/2024 Interpreted By: Deondre Davila, STUDY: CT ABDOMEN PELVIS W IV CONTRAST; 09/21/2024 1:33 am INDICATION: Signs/Symptoms:abd pain. COMPARISON: Same day CTA of the chest. ACCESSION NUMBER(S): [id number] ORDERING CLINICIAN: ROCKY EVERETT TECHNIQUE: Contiguous axial [...] Deondre Davila 09/21/2024 1:44 AM Dictation workstation: [id number] CT angio chest for pulmonary embolism Result Date: 09/21/2024 Interpreted By: Deondre Davila, STUDY: CT ANGIO CHEST FOR PULMONARY EMBOLISM; 09/21/2024 1:31am INDICATION: Signs/Symptoms:sob - hx of PE - not anticoagulated. COMPARISON: None ACCESSION NUMBER(S): [id number] ORDERING CLINICIAN: ROCKY EVERETT TECHNIQUE: Helical data [...] along the fissures in the lower lobes, pchcv-ykarvmj-rppz-left. 3. Mild cardiomegaly with some reflux of contrast into the hepatic veins and IVC, findings that may be seen in the setting of early right heart strain. Correlate with echocardiogram. MACRO: None Signed by: Deondre Davila 09/21/2024 1:38 AM Dictation workstation: [id number] Scheduled medications Scheduled Medications[1] Continuous medications Continuous [...] were you homeless or living in a senior living (including now)? N Transportation Needs In the [...] out to CT if needs should change. [facility] -.Care Transitions to follow. Marilee Jain BSN/RN-TCC documented in this [facility] Work Phone: [phone]) [phone] Hospital course Narrative* Rishabh El MD - [...] Current Status Extra Urine Garcia Tube Collected (09/21/245) Procalcitonin In process Urinalysis with Reflex Culture [...] Center 09/24/2024 2:40 PM Deepika Man, PharmD [id number] Academic 11/21/2024 10:30 AM Radu Kay MD [id number] South Time to dc > 35 minutes Rishabh El MD documented in this encounterUnD[facility] Work Phone: [phone]) 233-403507-13-2025 Plan of care note* Care Plan - Anisha Sheldon RN - 09/23/2024 5:20 AM EDT The clinical goals for the shift include pain control Over the shift, the patient made progress toward pain control with PRN pain medication. Rates lowest pain a 07/21. [facility]07-12-2025 Evaluation + Plan note* Assessment & Plan Note - Rishabh El [...] prophylaxis with Lovenox Patient is full code [facility] Work Phone: [phone] Plan of care note* Care Plan - [...] Improved urinary output this shift Outcome: Progressing [facility] Work Phone: [phone] regional facilities manager Note* Significant Event - Rishabh El MD - 09/21/2024 5:02 PM EDT Patient was seen and examined, admitted overnight. Reviewed chart and agree with assessment plan [facility] Work Phone: [phone]) 253-502107-11-2025 Consult note* Jaxson Osorio MD - 09/21/2024 [...] leg abscess, migraine. She presented to ED [facility] on 09/21/2024 complaining of progressively worsening [...] 5.5 4.3 - 5.6 % Final Comment: [place] Diabetes Association guidelines indicate that patients with HgbA1c in the range 5.7-6.4% are at increased risk for development of diabetes, and intervention by lifestyle modification may be beneficial. HgbA1c greater or equal to 6.5% is considered diagnostic of diabetes. 04/25/2021 08:44 AM 5.2 4.3 - 5.6 % Final Comment: [place] Diabetes Association guidelines indicate that patients with [...] drug use. Family History: Family History[1] Allergies: Reliance, Shellfish derived, Tigan [trimethobenzamide], Vicodin [hydrocodone- acetaminophen], [...] leg abscess, migraine. She presented to ED [facility] on 09/21/2024 complaining of progressively worsening [...] acute ischemic changes. - Echo (07/2024 - [facility]): - The left ventricle is [...] the prior echocardiographic exam performed on 04/25/2021 ([facility]). Mobile echodensity reported today as above. [...] [4] Continuous Medications Medication Dose Last Rate [facility] Work Phone: [phone] Consult note* Jaxson Osorio MD - 09/21/2024 [...] leg abscess, migraine. She presented to ED [facility] on 09/21/2024 complaining of progressively worsening [...] 5.5 4.3 - 5.6 % Final Comment: [place] Diabetes Association guidelines indicate that patients with HgbA1c in the range 5.7-6.4% are at increased risk for development of diabetes, and intervention by lifestyle modification may be beneficial. HgbA1c greater or equal to 6.5% is considered diagnostic of diabetes. 04/25/2021 08:44 AM 5.2 4.3 - 5.6 % Final Comment: [place] Diabetes Association guidelines indicate that patients with [...] drug use. Family History: Family History[1] Allergies: Reliance, Shellfish derived, Tigan [trimethobenzamide], Vicodin [hydrocodone- acetaminophen], [...] leg abscess, migraine. She presented to ED [facility] on 09/21/2024 complaining of progressively worsening [...] the prior echocardiographic exam performed on 04/25/2021 ([facility]). Mobile echodensity reported today as above. [...] Medication Dose Last Rate documented in this [facility] Work Phone: [phone] Plan of care note* Care Plan - [...] improvement of dyspnea/breathlessness this shift Outcome: Progressing [facility]07-11-2025 Plan of care note* Care Plan - [...] appropriate for maintaining nutritional needs Outcome: Progressing [facility] Work Phone: [phone] Evaluation + Plan note* Assessment & Plan [...] for DVT prophylaxis Patient is full code [facility] Work Phone: [phone] History and physical note* Boo Saeed MD [...] zolpidem (AMBIEN) 10 mg, Nightly PRN Allergies Reliance, Shellfish derived, Tigan [trimethobenzamide], Vicodin [hydrocodone- acetaminophen], [...] Yellow, Dark-Yellow Appearance, Urine Clear Clear Specific [place], Urine 1.023 1.005 - 1.035 pH, Urine [...] Deondre Davila 09/21/2024 1:44 AM Dictation workstation: [id number] CT angio chest for pulmonary embolism Result [...] along the fissures in the lower lobes, wfryq-augofcq-wmad-left. 3. Mild cardiomegaly with some reflux of contrast into the hepatic veins and IVC, findings that may be seen in the setting of early right heart strain. Correlate with echocardiogram. MACRO: None Signed by: Deondre Davila 09/21/2024 1:38 AM Dictation workstation: [id number] Cardiology, Vascular, and Other Imaging No other [...] file. [3] No family history on file. [facility] Work Phone: [phone]) 222-370207-11-2025 History and physical note* Boo Saeed MD [...] zolpidem (AMBIEN) 10 mg, Nightly PRN Allergies Reliance, Shellfish derived, Tigan [trimethobenzamide], Vicodin [hydrocodone- acetaminophen], [...] Yellow, Dark-Yellow Appearance, Urine Clear Clear Specific [place], Urine 1.023 1.005 - 1.035 pH, Urine [...] Deondre Davila 09/21/2024 1:44 AM Dictation workstation: [id number] CT angio chest for pulmonary embolism Result [...] along the fissures in the lower lobes, ozskk-jqsbdys-dvea-left. 3. Mild cardiomegaly with some reflux of contrast into the hepatic veins and IVC, findings that may be seen in the setting of early right heart strain. Correlate with echocardiogram. MACRO: None Signed by: Deondre Davila 09/21/2024 1:38 AM Dictation workstation: [id number] Cardiology, Vascular, and Other Imaging No other [...] family history on file. documented in this [facility] Work Phone: [phone] Physician Emergency department Note* Rocky Pavon Karlos, - 09/20/2024 11:58 PM EDT HPI Chief Complaint Patient presents with Abdominal Pain Pt states she started gaining water weight on Tuesday, was put Lasix Tuesday, she has gained 10lbs since Tuesday. Mid abd pain worse since this AM. Hx of cardiomyopathy, liver disease, and pancreatitis. Sees Rio in [facility] and was told to come to ED [...] to the emergency room by her established sales communications manager. History provided by: Patient circulation manager used: No Patient History Medical History[1] Surgical [...] on file Rocky Everett DO 09/21/24 0250 [facility] Work Phone: [phone] Emergency department Note* Rocky Everett DO - 09/20/2024 11:58 PM EDT HPI Chief Complaint Patient presents with Abdominal Pain Pt states she started gaining water weight on Tuesday, was put Lasix Tuesday, she has gained 10lbs since Tuesday. Mid abd pain worse since this AM. Hx of cardiomyopathy, liver disease, and pancreatitis. Sees Rio in [facility] and was told to come to ED [...] to the emergency room by her established sales communications manager. History provided by: Patient circulation manager used: No Patient History Medical History[1] Surgical [...] Everett DO 09/21/24 0250 documented in this encounterGrand [facility] Work Phone: [phone]) 258-328007-04-2025 [facility]07-03-2025 Progress note Author Emerson Sierra [facility] Note Date/Time September 13, 2024 4:14p [facility] Medical Records Department [address] [place] [address] Progress Note - Hospitalist 09/13/24 1612 MR#: [id number] Acct: [id number] Name: MICHELLE MITCHELL Rep #:[id number] : 1980 43 From: Emerson Arciniega PCP: Dr. Dex Wilkinson MD Status:A DM KISHA Location: [place] [id number] Reason for Visit Reason for Visit: Diagnoses [...] 85.8 H, Lymph % (Auto) 6.3 L, [place] % (Auto) 6.7, Eos % (Auto) 0.1, [...] volume of pelvic free fluid. Reading Location: [facility] Physical Exam Narrative Seen and examined In [...] pain. No fever or chills. 1. Intractable uuncu-xx-zpshoth abdominal pain after recent failed celiac plexus block - Admit to general medical floor under observation status. GI consulted. Change PPI IV pantoprazole once daily. Exact etiology of pain not clear. 09/13: Advised follow-up with the pain banking specialist Dr. Dennison. Patient got relief with [...] follow-up instructions. Charges/Coding Visit Charges Inpatient E&M: 96599 Subs Hosp L2 09/13/24 1614 <Electronically signed by Emerson Sierra MD> Cosigner Signature (if applicable): CC: ~ Signed [facility] Work Phone: 1(662) 861-954307-03-2025 Discharge summary Author Emerson Sierra [facility] Note Date/Time September 13, 2024 1:46p [facility] Medical Records Department [address] [place] [address] Discharge Summary 09/13/24 1237 MR#: [id number] Acct: [id number] Name: MICHELLE MITCHELL Rep #:[id number] : 1980 43 From: Emerson Arciniega PCP: Dr. Dex Wilkinson MD Status:A DM KISHA [facility] Prov[facility] Date of Admission: 09/11/24 Date of Discharge: 09/13/24 Primary Care Physician: Dr. Dex Wilkinson MD Consultations 09/12/24 00:20 Consult: Gastroenterology Routine Consulting Provider: [facility] Reason for Consult: Intractable abdominal pain [...] pain. No fever or chills. 1. Intractable chvkv-el-xtajlfa abdominal pain after recent failed celiac plexus block - Admit to general medical floor under observation status. GI consulted. Change PPI IV pantoprazole once daily. Exact etiology of pain not clear. 09/13: Advised follow-up with the pain banking specialist Dr. Dennison. Patient got relief with [...] 85.8 H, Lymph % (Auto) 6.3 L, [place] % (Auto) 6.7, Eos % (Auto) 0.1, [...] volume of pelvic free fluid. Reading Location: [id number] D/C Instructions Discharge Diet: Light diet - [...] Self Care Charges/Coding Visit Charges Inpatient E&M: 58783 Disch Hosp >30min 09/13/24 1242 <Electronically signed [...] MD; Dr. Emerson Sierra MD ~* Signed [facility] Work Phone: 1(301) 292-498607-03-2025 Discharge summary Author Emerson Rigo [facility] Note Date/Time September 13, 2024 12:37 pm [facility] Medical Records Department [address] [place] [address] Instructions for Home/Discharge Instructions 09/13/24 1219 MR#: [id number] Acct: [id number] Name: MICHELLE MITCHELL Rep #:[id number] : 1980 43 From: Emerson Arciniega [...] Care Provider] - Within 1 Week Quang Mlyes DO [Med Staff - Active Staff] - Within 1 Month Disposition Disposition (needs filled in before D/C Order can be placed): Home, Self Care 09/13/24 5427<Electronically signed by Emerson Sierra MD>Emerson Sierra MD CC: Dr. Sergio Umaña DO; Dr. Dex Wilkinson MD ~ Signed [facility] Work Phone: 1([phone]) 515-478507-03-2025 [facility]07-02-2025 Radiology Diagnostic study [facility]07-02-2025 Consult note Author Quang Friend [facility] Note Date/Time September 12, 2024 6:39p m [facility] Medical Records Department [address] [place] [address] Consultation - GI 09/12/24 1834 MR#: [id number] Acct: [id number] Name: MICHELLE MITCHELL Rep #:[id number] : 1980 43 From: Quang Myles DO PCP: Dr. Dex Wilkinson MD Status:A DM KISHA Location: NE3 TG799-2 HPI Consult Data Date of Consult: 09/12/24 [...] has come back down with fluid administration. [facility] Medical History Dilated pancreatic duct Abdominal pain [...] pain Pulmonary embolism Endometrial cancer Cervical cancer shelter current use of 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 Ovarian cancer GERD [...] 94.8 H, Lymph % (Auto) 3.5 L, [place] % (Auto) 0.7, Eos % (Auto) 0.1, [...] Sl. Cloudy, Urine pH 7.0, Ur Specific [place] 1.010, Urine Protein 100 H, Urine Glucose [...] 94.7 H, Lymph % (Auto) 3.6 L, [place] % (Auto) 0.7, Eos % (Auto) 0.1, [...] 94.8 H, Lymph % (Auto) 2.8 L, [place] % (Auto) 1.7, Eos % (Auto) 0.0, [...] disease. Correlate for possible hepatitis. Reading Location: [place] [address] Assessment & Plan Assessment/Plan (1) Intractable abdominal [...] biliary stents. Charges/Coding Visit Charges Inpatient E&M: 94300 Init Hosp L3 09/12/24 1839 <Electronically signed by Quang Friend DO> Cosigner Signature (if applicable): CC: Dr. Dex Wilkinson MD~ Signed [facility] Work Phone: 1(757) 444-365807-02-2025 Progress note Author Emerson Sierra [facility] Note Date/Time September 12, 2024 11:29 am [facility] Medical Records Department [address] [place] [address] Progress Note - Hospitalist 09/12/24 0958 MR#: [id number] Acct: [id number] Name: MICHELLE MITCHELL Rep #:[id number] : 1980 43 From: Emerson Arciniega PCP: Dr. Dex Wilkinson MD Status:A DM KISHA Location: MS3 LQ817-7 Reason for Visit Reason for Visit: Diagnoses [...] 94.8 H, Lymph % (Auto) 3.5 L, [place] % (Auto) 0.7, Eos % (Auto) 0.1, [...] Sl. Cloudy, Urine pH 7.0, Ur Specific [place] 1.010, Urine Protein 100 H, Urine Glucose [...] 94.7 H, Lymph % (Auto) 3.6 L, [place] % (Auto) 0.7, Eos % (Auto) 0.1, [...] 94.8 H, Lymph % (Auto) 2.8 L, [place] % (Auto) 1.7, Eos % (Auto) 0.0, [...] disease. Correlate for possible hepatitis. Reading Location: [place] [address] Physical Exam Narrative Seen and examined Patient [...] pain. No fever or chills. 1. Intractable fvpcc-zt-gbfbgge abdominal pain after recent failed celiac plexus [...] plus SCD's. Charges/Coding Visit Charges Inpatient E&M: 70296 Subs Hosp L2 09/12/24 1129 <Electronically signed by Emerson Sierra MD> Cosigner Signature (if applicable): CC: ~ Signed [facility] Work Phone: 1(467) 487-208307-02-2025 History and physical note Author Sergio Whalen [facility] Note Date/Time September 12, 2024 6:06a [facility] Medical Records Department [address] [place] [address] H&P Exam - Hospitalist 09/11/24 2319 MR#: [id number] Acct: [id number] Name: MICHELLE MITCHELL Angelo Rep #:[id number] : 1980 43 From: Sergio Giles DO PCP: Dr. Dex Wilkinson MD Status:A DM IN Location: [facility] AB488-1 HPI - General General Date of Admission: 09/11/24 [...] Dr. Myles of gastroenterology who presents to [facility] ER complaining of worsening abdominal pain. Ms. [...] expected to be less than 2 midnights. 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 Cloudy, Urine pH 7.0, Ur Specific [place] 1.010, Urine Protein 100 H, Urine Glucose [...] 94.7 H, Lymph % (Auto) 3.6 L, [place] % (Auto) 0.7, Eos % (Auto) 0.1, [...] disease. Correlate for possible hepatitis. Reading Location: [place] [address] Assessment & Plan Assessment/Plan (1) Intractable abdominal pain: (2) Chronic abdominal pain: (3) History of celiac plexus block: (4) Elevated lipase: (5) Leukocytosis: QUALIFIERS: Leukocytosis type: unspecified Qualified Code(s): D72.829 - Elevated white blood cell count, unspecified (6) History of biliary stent insertion: (7) History of insertion of pancreatic stent: PLAN: Plan 1. Intractable ytjrw-jm-sbazkol abdominal pain after recent failed celiac plexus [...] 70 minutes. Charges/Coding Visit Charges OBSV E&M: 73016 Observ/hosp same date L2 09/12/24 0606 <Electronically signed by Sergio Umaña DO> Cosigner Signature (if applicable): CC: Dr. Sergio Umaña DO; Dr. Dex Wilkinson MD~ Signed [facility] Work Phone: 1(988) 413-803307-02-2025 Discharge summary Author Gage Sharma [facility] Note Date/Time September 12, 2024 1:01a m [facility] Medical Records Department [address] [place] [address] Emergency Department Summary 09/11/24 MR#: [id number] Acct: [id number] Name: MICHELLE MITCHELL Rep #:[id number] : 1980 43 From: Gage rush DO PCP: Dr. Dex Wilkinson MD Status:A DM IN Location: [place]3 LG053-0 HPI History of Present Illness Chief Complaint: [...] oriented, grossly intact, sensation intact Psych: Cooperative [facility] Medical History Hypertension Severe pulmonary hypertension History of hypertrophic cardiomyopathy Acute systolic congestive heart failure, NYHA class 3 Leukocytosis Cancer History of steroid therapy Easy bruising Migraine headache History of hiatal hernia History of ulceration History of IBS Abdominal bloating Stomach pain Nausea & vomiting Shortness of breath on exertion Smoker History of echocardiogram Chest pain Pulmonary embolism Endometrial cancer Cervical cancer 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 Cloudy Urine pH 7.0 Ur Specific [place] 1.010 Urine Protein 100 H Urine Glucose [...] disease. Correlate for possible hepatitis. Reading Location: [place] [address] Discharge Plan Disposition Disposition: Acute Care Hospital [facility] Discharge Date/Time: 09/12/24 00:11 What to do if you have Problems For any increased pain, shortness of breath, bleeding, nausea or vomiting, chestpain, or any unexpected problems, contact your Primary Care Provider. Call [facility] ([phone]) or report to the closest Emergency Room. Call 911 if necessary. 09/12/24100 <Electronically signed by Gage Sharma DO> Cosigner Signature (if applicable): CC: Dr. Dex Wilkinson MD ~ Signed [facility] Work Phone: 1(139) 828-243507-01-2025 Radiology [id number] Nuclear medicine Diagnostic study [facility]06-13-2025 Discharge summary Author Taylor Tejeda [facility] Note Date/Time August 24, 2024 3:36 pm [facility] Medical Records Department [address] [place] [address] Instructions for Home/Discharge Instructions 08/24/24 1312 MR#: [id number] Acct: [id number] Name: MICHELLE MITCHELL Rep #:[id number] 2 : 1980 43 From: Taylor Tejeda [...] DO; Dr. Dex Wilkinson MD ~ Signed [facility] Work Phone: 1(391) 471-212906-13-2025 [facility]06-12-2025 Progress note Author Quang Friend [facility] Note Date/Time August 23, 2024 8:09 pm [facility] Medical Records Department [address] [place] [address] Progress Note 08/23/242003 MR#: [id number] Acct: [id number] Name: MICHELLE MITCHELL Rep #:[id number] : 1980 43 From: Quang Myles DO PCP: Dr. Dex Wilkinson MD Status:A DM IN Location: [place] [address] Progress Note Patient saying that she is [...] is a 43-year-old female who presented to [facility] ED on 08/20/2024 with worsening RUQ abdominal pain. Worsening RUQ abdominal pain with elevated LFTs ? Admit under inpatient status to PCU. GI consulted. Presented with worsening abdominal pain and uptrending LFTs. Prior CT abdomen pelvis showed hepatomegalywith double duct sign. Liver ultrasound on this admission again showed hepatomegaly with pancreatic duct dilation. 08/23/2024-Findings: The hand leather trimmer film was normal. The esophagus was successfully [...] 08/23/24 at 2007 Visit Charges Inpatient E&M: 30727 Subs Hosp L3 08/23/242007 <Electronically signed by Quang arciniega DO> Date _ Quang Myles DO Cosigner Signature (if applicable): Date cc: ~* Signed [facility] Work Phone: 1(802) 361-946506-12-2025 Radiology Diagnostic study [facility]06-12-2025 Progress note Author Taylor [facility] Note Date/Time August 23, 2024 5:29 pm [facility] Medical Records Department [address] [place] [address] Progress Note 08/23/24 1725 MR#: [id number] Acct: [id number] Name: MICHELLE MITCHELL Rep #:[id number] : 1980 43 From: Taylor Tejeda MD PCP: Dr. Dex Wilkinson MD Status:A DM IN Location: [place] [address] Subjective Subjective Patient seen and examined. He [...] (Auto) 80.5 H, Lymph % (Auto) 10.7 L,[place] % (Auto) 7.0, Eos % (Auto) 1.0, [...] * Has ICD in place. Follows with [facility] cardiology. * 2D echo showed EF of 35% with mild concentric left ventricular hypertrophy and global ventricular hypokinesis with stage II diastolic dysfunction. * Chest x-ray showed no evidence of volume overload. On spironolactone and metoprolol #Anxiety and insomnia: On alprazolam and zolpidem GERD: PPI DVT prophylaxis: Lovenox Charges/Coding Visit Charges Inpatient E&M: 00526 Subs Hosp L2 08/23/24 6005 <Electronically signed by Taylor Tejeda MD> Taylor Tejeda MD Cosigner Signature (if applicable): CC: ~ Signed [facility] Work Phone: 1(694) 153-586306-12-2025 Radiology Diagnostic study [facility]06-11-2025 Progress note Author Taylor Luimelly [facility] Note Date/Time August 22, 2024 5:59 pm [facility] Medical Records Department [address] [place] [address] Progress Note 08/22/24 1211 MR#: [id number] Acct: [id number] Name: MICHELLE MITCHELL Rep #:[id number] : 1980 43 From: Taylor Tejeda MD PCP: Dr. Dex Wilkinson MD Status:A DM IN Location: [place] [address] Subjective Subjective Patient seen and examined. She [...] (Auto) 77.7 H, Lymph % (Auto) 12.5 L,[place] % (Auto) 8.0, Eos % (Auto) 0.8, [...] 08/21/24 18:30 IMPRESSION: As above. Reading Location: [place] [address] Physical Exam Const alert and oriented x3 [...] * Has ICD in place. Follows with [facility] cardiology. * 2D echo showed EF of 35% with mild concentric left ventricular hypertrophy and global ventricular hypokinesis with stage II diastolic dysfunction. * Chest x-ray showed no evidence of volume overload. On spironolactone and metoprolol #Anxiety and insomnia: On alprazolam and zolpidem GERD: PPI DVT prophylaxis: Lovenox Charges/Coding Visit Charges Inpatient E&M: 67597 Subs Hosp L2 08/22/24 4957 <Electronically signed by Taylor Tejeda MD> Taylor Tejeda MD Cosigner Signature (if applicable): CC: ~ Signed [facility] Work Phone: 1(264) [phone] Consult note Author Tony Dumont [facility] Note Date/Time August 22, 2024 6:53 am [facility] Medical Records Department [address] [place] [address] Anesthesia Postop Eval II 08/22/24 0653 MR#: [id number] Acct: [id number] Name: ALBADELMIMICHELLE Rep #:[id number] : 1980 43 From: Tony Dumont MD PCP: Dr. Dex Wilkinson MD Status:A DM IN Y Race: C Location: [place] [address] 2-1 Anesthesia Postop Eval I Sum Postop [...] MD Cosigner Signature: Date CC: ~ Signed [facility] Work Phone: 1(967) 478-623506-10-2025 Consult note Author Tony lazara [facility] Note Date/Time August 21, 2024 7:28 pm [facility] Medical Records Department [address] [place] [address] Anesthesia Postop Eval I 08/21/241926 MR#: [id number] Acct: [id number] Name: MICHELLE MITCHELL Rep #:[id number] 0 : 1980 43 From: Tony Dumont MD PCP: Dr. Dex Wilkinson MD Status:A DM IN Y Race: C Location: [place] [address] 2-1 Anesthesia: Postop Eval I Current Vital Signs [...] MD > Date _ Tony Dum[facility] Signature: Date CC: ~ Signed [facility] Work Phone: [phone] 161-126706-10-2025 Radiology Diagnostic study [facility]06-10-2025 Progress note Author Taylor [facility] Note Date/Time August 21, 2024 5:30 pm [facility] Medical Records Department [address] [place] [address] Progress Note 08/21/248 MR#: [id number] Acct: [id number] Name: MICHELLE MITCHELL Angelo Rep #:[id number] 0 : 1980 43 From: Taylor Tejeda MD PCP: Dr. Dex Wilkinson MD Status:A DM IN Location: [place] [address] Subjective Subjective Patient seen and examined. She [...] * Has ICD in place. Follows with [facility] cardiology. * 2D echo showed EF of 35% with mild concentric left ventricular hypertrophy and global ventricular hypokinesis with stage II diastolic dysfunction. * Chest x-ray showed no evidence of volume overload. On spironolactone and metoprolol #Anxiety and insomnia: On alprazolam and zolpidem GERD: PPI DVT prophylaxis: Lovenox Charges/Coding Visit Charges Inpatient E&M: 32445 Subs Hosp L3 08/21/24 1730 <Electronically signed by Taylor Tejeda MD> Taylor Tejeda MD Cosigner Signature (if applicable): CC: ~ Signed [facility] Work Phone: 1(571) [phone] Progress note Author Quang Friend [facility] Note Date/Time August 21, 2024 5:27 pm [facility] Medical Records Department [address] [place] [address] Progress Note 08/21/24 1724 MR#: [id number] Acct: [id number] Name: MICHELLE MITCHELL Rep #:[id number] : 1980 43 From: Quang Friend DO PCP: Dr. Dex Wilkinson MD Status:A DM IN [facility] Progress Note Patient still complains of [...] ASA of 3. Visit Charges Inpatient E&M: 46469 [facility] Hosp L3 08/21/247 <Electronically signed by Quang Myles DO> Quang Myles DO [facility] Signature (if applicable): CC: ~ Signed [facility] Work Phone: [phone]) [phone] Procedure [facility] 08-21-2024 Consult note Author Tony Dumont [facility] Note Date/Time August 21, 2024 4:55 pm [facility] Medical Records Department [address] [place] [address] Pre-Anesthesia Evaluation 08/21/24 1655 MR#: [id number] Acct: [id number] Name: MICHELLE MITCHELL Rep #:[id number] : 1980 43 From: Tony Dumont MD PCP: Dr. 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 Hx Hospitalization Yes: 05/2024 ABSCESS TURNED 07/10/24 [...] take am of surgery PONV PONV - cleaning crew member: PONV - cleaning crew member Female HX of Motion Sickness HX of N/V After Surgery Non-Smoker Duration of Surgery greater than 60 minutes Number of Risk Factors PONV Score Height & Weight Height & Weight: Anesthesia: Height & Weight Height 5 ft 4 in 08/21/24 16:39 Weight: 57.4 kg 08/21/24 16:39 Body Mass Index (BMI) 21.7 08/21/24 16:39 Respiratory Assessment Respiratory Assessment - cleaning crew member: Respiratory Tract Infection Hx - cleaning crew member Hx Respiratory Tract Infection No 08/20/24 21:50 STOP Sleep Apnea STOP Sleep Apnea - cleaning crew member: STOP Sleep Apnea - cleaning crew member Hx Hypertension No 08/20/24 18:53 Hx Sleep [...] Tobacco Use History Tobacco Use History - cleaning crew member: Tobacco Use History - cleaning crew member Tobacco Use Smoking Status Current every day smoker 08/20/24 18:53 Hx Tobacco Use Yes 08/20/24 18:53 Years Smoking Packs Smoked per Day Smoking Cessation Date was within the last 15 years Hx Smoking Cessation Date Hx Smoking Cessation No 08/20/24 18:53 Counseling Hematologic Medial History Hematologic Hx - cleaning crew member: Hematologic 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 Hx of Blood Transfusion No 08/20/24 18:53 [...] confused, unrespo /Reproduction History /Reproductive History - cleaning crew member: /Reproductive Hx- cleaning crew member Hx Now No 08/21/24 08:33 Gestational Age [...] mls @ 15 mls/hr 08/20/24 19:01 IV .[id number] PRN Saline Flush Sodium Chloride 250 mls @ 15 mls/hr 08/20/24 19:01 IV .[id number] PRN Additional IVPB Infusion Lactated Ringer's 1,000 mls @ 15 mls/hr 08/21/24 16:45 08/21/24 16:47 IV 15 mls/hr .Q48H PIA Administration Iopamidol 0 ml 08/21/24 08:45 Contrast Allergy Safety Check IV X1 [facility] Meloxicam 15 mg 08/21/24 10:00 08/21/24 11:17 Meloxicam 15 Mg Tablet PO Not Given DAILY [facility] Metoprolol Succinate 25 mg 08/21/24 10:00 08/21/24 11:18 Metoprolol(Xl)Succ 25 Mg Tablet PO Not Given DAILY [facility] Protocol Ondansetron HCl 4 mg 08/20/24 19:00 Ondansetron 4 Mg/2 Ml Vial IV Q8H PRN PRN NAUSEA/VOMITING Oxycodone HCl 5 mg 08/20/24 19:00 08/21/24 06:37 Oxycodone 5 Mg Tablet PO 5 mg Q4H PRN PRN Administration Pain Score 4-10 Pantoprazole Sodium 40 mg 08/20/24 22:00 08/21/24 11:18 Pantoprazole Sodium 40 Mg Tablet PO Not Given BID [facility] Scopolamine HBr 1 patch 08/21/24 10:00 08/21/24 13:23 Scopolamine 1mg/72hr Patch TD Not Given Q3D [facility] Sodium Chloride 10 - 40 ml 08/20/24 19:01 08/21/24 09:14 0.9% Saline Lock 10 Ml Syringe IV 10 ml UD PRN Administration SALINE FLUSH Spironolactone 25 mg 08/21/24 10:00 08/21/24 11:17 Spironolactone 25 Mg Tablet PO Not Given DAILY [facility] Protocol Sucralfate 1 gm 08/21/24 08:00 08/21/24 09:13 Sucralfate 1 Gm [facility] Zolpidem Tartrate 10 mg 08/20/24 22:00 08/20/24 21:53 Zolpidem Tartrate 5 Mg Tablet PO 10 mg QHS [facility] Administration [facility] Medical History Hypertension Severe pulmonary hypertension History of hypertrophic cardiomyopathy Acute systolic congestive heart failure, NYHA class 3 Leukocytosis Cancer History of steroid therapy Easy bruising Migraine headache History of hiatal hernia History of ulceration History of IBS Abdominal bloating Stomach pain Nausea & vomiting Shortness of breath on exertion Smoker History of echocardiogram Chest pain Pulmonary embolism Endometrial cancer Cervical cancer 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 08/21/24 3658 <Electronically signed by Tony Dumont MD > Date _ Tony Dumont MD Cosigner Signature: Date CC: ~ Signed [facility] Work Phone: 1(888) 256-323306-10-2025 Discharge summary Author Simona Fernandez [facility] Note Date/Time August 21, 2024 12:2 9am [facility] Medical Records Department [address] [place] [address] Emergency Department Summary 08/20/24 MR#: [id number] Acct: [id number] Name: MICHELLE MITCHELL Rep #:[id number] : 1980 43 From: Simona Jama PCP: Dr. Dex Wilkinson MD Status:A DM IN Location: [address] History of Present Illness Chief Complaint: [...] sphincter of Oddi syndrome, choledocholithiasis or ampullarylesion. PFSH PFS Medical History Hypertension Severe pulmonary hypertension History of hypertrophic cardiomyopathy Acute systolic congestive heart failure, NYHA class 3 Leukocytosis Cancer History of steroid therapy Easy bruising Migraine headache History of hiatal hernia History of ulceration History of IBS Abdominal bloating Stomach pain Nausea & vomiting Shortness of breath on exertion Smoker History of echocardiogram Chest pain Pulmonary embolism Endometrial cancer Cervical cancer shelter current use of 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 Ovarian cancer GERD [...] to prior hospitalization. Case discussed with Dr. Myles, GI on-call. He does agree that patient [...] 83.3 H Lymph % (Auto) 10.9 L [place] % (Auto) 4.6 Eos % (Auto) 0.2 [...] Clarity Clear Urine pH 6.5 Ur Specific [place] 1.010 Urine Protein 15 H Urine Glucose [...] duct dilation to 6.5 mm. Reading Location: [facility] [facility] Chest X-Ray 08/20/24 16:00 IMPRESSION: CARDIOMEGALY. NO ACUTE FINDINGS. Reading Location: [id number] Discharge Plan Dx/Rx/DC Orders Clinical Impression: Dilated pancreatic duct, Elevated liver enzymes, Abdominal pain, HFrEF (heart failure with reduced ejection fraction) Disposition Disposition: Acute Care Hospital [facility] Discharge Date/Time: 08/20/24 18:38 What to do if you have Problems For any increased pain, shortness of breath, bleeding, nausea or vomiting, chestpain, or any unexpected problems, contact your Primary Care Provider. Call [facility] ([phone]) or report to the closest Emergency Room. Call 911 if necessary. 08/21/24 0029 <Electronically signed by Simona Fernandez DO> Cosigner Signature (if applicable): CC: Dr. Dex Wilkinson MD ~ Signed [facility] Work Phone: 1(593) 233-930706-09-2025 History and physical note Author Lopez Larios [facility] Note Date/Time August 20, 2024 9:41p m [facility] Medical Records Department [address] [place] [address] H&P Exam - Hospitalist 08/20/24 5447 MR#: [id number] Acct: [id number] Name: MICHELLE MITCHELL Rep #:[id number] : 1980 43 From: Lopez Quach wendi DO PCP: Dr. Dex Wilkinson MD Status:A DM IN Location: [facility] [id number] 1 HPI - General General Date of Admission: 08/20/24 Date of Service: 08/20/24 Chief Complaint: Worsening RUQ abdominal pain HPI Narrative MICHELLE MITCHELL, is a 43 F who presented to [facility] ED on 08/20/2024 with worsening RUQ abdominal [...] No other acute concerns at this time. 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 Reading Location: [facility] Chest X-Ray 08/20/24 16:00 IMPRESSION: CARDIOMEGALY. NO ACUTE FINDINGS. Reading Location: [id number] Assessment & Plan Assessment/Plan (1) Abdominal pain: QUALIFIERS: Abdominal location: unspecified location Qualified Code(s): R10.9 - Unspecified abdominal pain (2) Elevated liver enzymes: (3) Dilated pancreatic duct: PLAN: Plan Patient is a 43-year-old female who presented to [facility] ED on 08/20/2024 with worsening RUQ abdominal [...] familial hypertrophic cardiomyopathy, hypertension ? Follows with [place] [facility]. Most recent echo on 07/21 showed [...] 75 minutes. Charges/Coding Visit Charges Inpatient E&M: 25220 Init Hosp L3 08/20/242140 <Electronically signed by Lopez Larios DO> Cosigner Signature (if applicable): CC: Dr. Lopez Larios DO; Dr. Dex Wilkinson MD~ Signed [facility] Work Phone: 1(954) 746-910506-09-2025 Radiology Diagnostic study [facility]06-09-2025 Radiology Diagnostic study [facility]06-04-2025 History of Present illness Narrative* Radu Kay MD - 08/15/2024 11:00 AM EDT [facility] Note CHIEF COMPLAINT: No chief complaint on file. Primary Care Physician: No primary care provider on file. School Counsellor- Dario ([place] [facility]) GI- Friend HISTORY OF PRESENT ILLNESS: Michelle Mitchell is a 43 y.o. female with hypertrophic cardiomyopathy who presents as a new patient Briefly she was apparently diagnosed with hypertrophic cardiomyopathy after an episode of syncope underwent ICD placement in 2006 with lead revision in 2008, and then explant of the entire device with reimplantation in 2016, she was followed with a local sales communications manager Dr Bishop (was following at [facility] she moved to [place] in 2021), notably she was admitted with chest pressure to [facility] in 2014 and 2016 felt [...] showing possible vegetation and was transferred to [facility], her blood cultures were negative [...] has. 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 No edema but does have cough and bloating She has 18-dbxr-lnmi smoking history no alcohol no illicits. She takes Trintellis for anger issues,was on chantix in the past without problems but it was taken off the market. ICD issues : no shocks, 5 years of battery, Playrcarttronic single lead Monitors/restricts salt/fluid : not much [...] BUN, CREATININE, EGFR, MG in the last 73476 hours.No results for input(s): ALBUMIN, ALKPHOS, ALT, AST, BILITOT, LIPASE in the last 42064 hours. No lab exists for component: CA CBC:No results for input(s): WBC, HGB, HCT, PLT, MCV in the last 64418 hours. HEME/ENDO:No results for input(s): FERRITIN, IRONSAT, TSH, HGBA1C in the last 27520 hours. CARDIAC: No results for input(s): LDH, CKMB, TROPHS, BNP in the last 43938 hours. No lab exists for component: CK, CKMBPNo results for input(s): CHOL, LDLF, HDL, TRIG inthe last 61287 hours. No results found for: BNP DIAGNOSTIC STUDIES REVIEWED: EKG: sinus rhythm with LAE bifid p wave, septal q No results found for this or any previous visit (from the past 4464 hours). ECHO [facility] 07/25/24: filamentous echodensity on the RV lead in the right atrium, measuring ~1.4 cm which appears new from [facility] on 2017. Differential includes infectious versus fibrinous material. TTE: [...] the prior echocardiographic exam performed on 04/25/2021 ([facility]). Mobile echodensity reported today as above. [...] Provider Department Center 08/15/2024 11:00 AM Radu aKy MD [id number] [place] Radu De Dios IV, MD Heart [...] at [facility] for ADHF. documented in this [facility] Work Phone: 1(443) 676-777106-04-2025 Instructions* Patient Instructions* Radu Kay MD - 08/15/2024 11:00 AM EDT To reach Dr. Kay's office please call [phone] ([place]). . Call [phone] to schedule an appointment. You may also contact the HF RNs at Thank you for coming to your appointment today. If you have any questions or need cardiac medication refills, please call the Heart Failure Office at [phone] option 6. Start spironolactone 25mg and jardiance 10mg (if affordable) Get labwork in the next 2-6 weeks (we can order if not ordered by your other doctors) Talk to Dr Wilkinson about Chantix in the future Try to get genetic testing information from your family Return in 3 months [facility] Work Phone: 1(535) 645-491405-31-2025 Radiology Diagnostic study [facility]05-30-2025 Telephone encounter Note* Telephone Encounter - Suman [...] reports she had attempted to contact her plug making operator as she has multiple GI issues, but was unable to get a response. Denies recent injury, fever, dysuria, urinary retention, incontinence, weakness, numbness, or hematuria. R: Patient instructed to proceed to evaluation of severe, sudden onset pain. Patient verbalizes understanding, and states she will proceed to [facility], and that her SO will drive her. Reason for Disposition Patient sounds very sick or weak to the triager Protocols used: Back Irnl-GHIBZ-XD [facility] [id number] Miscellaneous Notes* Telephone Encounter - Suman Cadena [...] reports she had attempted to contact her plug making operator as she has multiple GI issues, but was unable to get a response. Denies recent injury, fever, dysuria, urinary retention, incontinence, weakness, numbness, or hematuria. R: Patient instructed to proceed to evaluation of severe, sudden onset pain. Patient verbalizes understanding, and states she will proceed to [facility], and that her SO will drive her. Reason for Disposition Patient sounds very sick or weak to the triager Protocols used: Back Jlpn-YRVDH-WE documented in this [facility]05-28-2025 Evaluation note* Diagnosis Onset Date Resolution Status [...] 2024 12:12pm S/P ERCP acute November 12:12pm [facility] Work Phone: 1(627) 860-221505-19-2025 History of Present illness Narrative* Quynh Chang [facility] - 07/30/2024 7:23 AM EDT [...] oz) Patient was sent a message via Doorman including the link to the [facility] Heart Failure education video: No sent 07/27/24 Patient unable to be reached after unsuccessful outreach attempt(s). No further attempts to contactpatient will be made. SUMMARY: -Pt discharged from [facility] on 07/27/24. -Medication review not done History of Present Illness: The following content has been copied and pasted from patient's discharge summary. If discharge summary unavailable, After Visit Summary or last pertinent inpatient notes are copied and pasted. Reason for Hospitalization: Patient transferred to [facility] from [place] for concerns for ADHF and hx of [...] follow up with her local PCP and sales communications manager in [place]. Medication Reconciliation: Legend: Stopped, New, Changed, Added [...] 25 mg daily for your hypertrophic cardiomyopathy Processing Operator on new HF med- N/A pantoprazole DR [...] bedtime. Preferred pharmacy: [facility] [place] [address] [address] [facility] - [phone] [place] [address] [facility] [address] [place] [address] Estimated Creatinine Clearance: 70.3 mL/min (based on [...] 30, 2024 7:24 AM [facility]25 NoteHNO ID: [id number] Author: QUYNH CHANG RPh Service: ? Author [...] oz) Patient was sent a message via Doorman including the link to the [facility] Heart Failure education video: No sent 07/27/24 Patient unable to be reached after unsuccessful outreach attempt(s). No further attempts to contact patient will be made. SUMMARY: -Pt discharged from [facility] on 07/27/24. -Medication review not done History of Present Illness: The following content has been copied and pasted from patient's discharge summary. If discharge summary unavailable, After Visit Summary or last pertinent inpatient notes are copied and pasted. Reason for Hospitalization: Patient transferred to [facility] from [place] for concerns for ADHF and hx of [...] follow up with her local PCP and sales communications manager in [place]. Medication Reconciliation: Legend: Stopped, New, Changed, Added [...] tablet by mouth once daily. E-rx to [facility] Per discharge summary: Start toprol XL [address] Fonseca Per AVS: You are started on Toprol-XL 25 mg daily for your hypertrophic cardiomyopathy Processing Operator on new HF med - N/A pantoprazole [...] by mouth daily at bedtime. Preferred pharmacy: [facility] [address] [place] [address] [address] [facility] - [phone] [address] [facility] [address] [facility] [address] [facility] [address] [facility] [address] Estimated Creatinine Clearance: 70.3 mL/min (based on [...] Quynh Chang RPh July 30, 2024 7:24 [facility]05-19-2025 NotePatient Outreach (PHRXRF) MICHELLE MITCHELL ([id number]) 1980 F Date Time Provider Department 07/30/24 [...] oz) Patient was sent a message via Doorman including the link to the [facility] Heart Failure education video: No sent 07/27/24 Patient unable to be reached after unsuccessful outreach attempt(s). No further attempts to contact patient will be made. SUMMARY: -Pt discharged from [facility] on 07/27/24. -Medication review not done History of Present Illness: The following content has been copied and pasted from patient's discharge summary. If discharge summary unavailable, After Visit Summary or last pertinent inpatient notes are copied and pasted. Reason for Hospitalization: Patient transferred to [facility] from [place] for concerns for ADHF and hx of [...] follow up with her local PCP and sales communications manager in [place]. Medication Reconciliation: Legend: Stopped, New, Changed, Added [...] 25 mg daily for your hypertrophic cardiomyopathy Processing Operator on new HF med - N/A pantoprazole [...] by mouth daily at bedtime. Preferred pharmacy: [facility] [address] [place] [address] - [address] [facility] - [phone] [place], [place] [id number] [facility] [address] [place] [address] Estimated Creatinine Clearance: 70.3 mL/min (based on [...] redness and itching a (more content not included)...[facility]05-16-2025 NoteHNO ID: [id number] Author: IRLANDA MOORE RPh Service: Pharmacy Author [...] RPh July 27, 2024 10:38 AM Pager: [phone] Medication List START taking these medications metoprolol [...] Your Medications These medications were sent to [facility] [address] [place] [address] - [address] [place] [address] - [phone] [place] [address] metoprolol succinate ER 25 mg 24 hr tabletChillicothe Hospital05-15-2025 NoteHNO ID: [id number] Author: TEJAL RODRÍGUEZ PA-C Service: Cardiovascular Medicine Author Type: Physician Fisher Pot Type: Progress Notes Filed: 07/26/2024 15:35 Note Text: [facility] CARDI[facility]ULAR [facility]ICINE PROGRESS NOTE Michelle Mitchell [id number] PRIMARY SERVICE: Imaging, Hvi TIME OF SERVICE: [...] new from [facility] o (more content not included)...[facility]05-14-2025 NoteHNO ID: [id number] Author: SHEILA SPICER RN Service: Care Management Author Type: Registered Nurse Type: Care Mgt Initial Assessment Filed: 07/25/2024 14:56 Note Text: CARE MANAGEMENT: ASSESSMENT AND DISCHARGE PLAN SERVICE DATE: July 25, 2024 SERVICE TIME: 2:50 PM PCP: Dex Wilkinson MD Primary Contact: Extended Emergency Contact Information Primary Emergency Contact: AlbadelmiBabar Address: [address] [place] [address] [address] [facility] Mobile Relation: Spouse Admission Status: Inpatient Insurance Provider: [facility] PPO Discharge Planning requested by: Per Department Practice Potential Transition Plans Home Advance Directives Current Advance Directive: None Lead Generation Representative Attempted to Assist with AD Completion: Yes [...] Patient Goal(s): Be able to go home Darwin of Choice Explained: Darwin of Choice Given: No Reason Not Given: [...] Mitchell DATE: July 25, 2024 TIME: 2:50 [facility]05-14-2025 Nurse Note* Dominguez Obregon RN - [...] By Dominguez Obregon RN In Department: CARDIOLOGY [facility]05-14-2025 Nurse Note* Dominguez Obregon RN - [...] RN In Department: CARDIOLOGY documented in this [facility]. [facility]05-14-2025 NoteHNO ID: [id number] Author: MAHNAZ RUFF ? Service: Pharmacy Author Type: Machine Paint Mixer Type: Plan of Care Filed: 07/25/2024 10:00 [...] questions, please reach out to your medication rn access. Thank you (Prices may vary at different pharmacy locations, this is the cost at [facility]05-14-2025 NoteHNO ID: [id number] Author: MAHNAZ RUFF, Markus Service: Pharmacy Author Type: Machine Paint Mixer Type: Plan of Care Filed: 07/25/2024 09:57 Note Text: Insurance investigation completed Patient has active prescription insurance: Yes - Patient's insurance is in-network with [facility] Insurance loaded into [place]: Yes Test claim was completed to verify insurance is active: Successful Any questions, please reach out to your medication rn access.[facility]05-13-2025 Discharge summary [facility] Medical Records Department [address] [place] [address] Discharge Summary 07/24/24 0839 MR#: [id number] Acct: [id number] Name: MICHELLE MITCHELL Rep #:[id number] : 1980 43 From: Willian Ovalles DO PCP: Dr. Dex Wilkinson MD Status:A DM IN Location: [facility] [id number] Providers Date of Admission: 07/21/24 Primary Care Physician: Dr. Dex Wilkinson MD Consultations 07/21/24 00:48 Consult: Cardiology Routine Consulting Provider: [facility] Reason for Consult: AE CHF, Elevated Troponin and Near Syncope with Hypertrophic CM EMERGENT Consult: No MD Notified: Yes Date Notified: 07/21/24 Time Notified: 06:52 Method of Notification: Text Method of Consult:: In-Person 07/23/24 08:42 Consult: Gastroenterology Routine Consulting Provider: [facility] Reason for Consult: gastritis. clearance for [...] on following up with Dr. Aguilar at [facility], [facility] at [facility] that specialized in cardiac transplantation. [...] heart transplant. So that is the reason [facility] was selected as a facility for transfer. [...] Care Hospital Charges/Coding Visit Charges Inpatient E&M: 76181 Disch Hosp >30min 07/24/24 0843 Cosigner Signature (if applicable): CC: Dr. Willian Ovalles DO; Dr. Dex Wilkinson MD~ Signed [facility]05-13-2025 NoteWooParkview [facility]05-12-2025 Progress note Author Willian huong [facility] Note Date/Time July 23, 2024 12:31 pm [facility] Medical Records Department [address] [place] [address] Progress Note - Hospitalist 07/23/24 0749 MR#: [id number] Acct: [id number] Name: STEPHENMICHELLE Rep #:[id number] 2 : 1980 43 From: Willian Ovalles DO PCP: Dr. Dex Wilkinson MD Status:A DM IN Location: [place] [address] Reason for Visit Reason for Visit: Diagnoses [...] 93.3 H, Lymph % (Auto) 2.5 L, [place] % (Auto) 2.5, Eos % (Auto) 0.0, [...] on following up with Dr. Aguilar at [facility], [facility] at [facility] that specialized in cardiac transplantation. [...] her sister. Patient has been accepted to [facility], awaiting on bed availablily. Charges/Coding Visit Charges Inpatient E&M: 11782 Subs Hosp L3 07/23/24 1231 <Electronically signed by Willian Ovalles DO> Cosigner Signature (if applicable): CC: ~ Signed [facility] Work Phone: 1(166) 377-390205-12-2025 Progress note Author Mercy Bishop [facility] Note Date/Time July 23, 2024 11:05 am [facility] Medical Records Department [address] [place] [address] Progress Note - Cardiology 07/23/24 0826 MR#: [id number] Acct: [id number] Name: MICHELLE MITCHELL Rep #:[id number] 2 : 1980 43 From: Mercy Bishop MD PCP: Dr. Dex Wilkinson MD Status:A DM IN Location: [place] [id number] Subjective Subjective Patient continues to complain [...] 93.3 H, Lymph % (Auto) 2.5 L, [place] % (Auto) 2.5, Eos % (Auto) 0.0, [...] 93.3 H, Lymph % (Auto) 2.5 L, [place] % (Auto) 2.5, Eos % (Auto) 0.0, [...] with Dr. Zambrano at the [facility] and he has agreed to [...] infraclavicular area. This is monitored with the [place] [facility]. (3) Hemorrhagic gastritis: QUALIFIERS: Chronicity: [...] arrange for transfer to the [facility] with her heart failure service. Charges/Coding Visit Charges Inpatient E&M: 78159 Subs Hosp L3 07/23/24 1105 <Electronically signed by Mercy Bishop MD> Cosigner Signature (if applicable): CC: ~ Signed [facility] Work Phone: 1(939) 811-725305-12-2025 Progress note [facility] Medical Records Department [address] [place] [address] Progress Note - Hospitalist 07/23/24 0749 MR#: [id number] Acct: [id number] Name: MICHELLE MITCHELL Rep #:[id number] 2 : 1980 43 From: Willian Ovalles DO PCP: Dr. Dex Wilkinson MD Status:A DM IN Location: [place] [address] Reason for Visit Reason for Visit: Diagnoses [...] 93.3 H, Lymph % (Auto) 2.5 L, [place] % (Auto) 2.5, Eos % (Auto) 0.0, [...] on following up with Dr. Aguilar at [facility], CTS at [facility] that specialized in cardiac transplantation. [...] her sister. Patient has been accepted to [facility], awaiting on bed availablily. Charges/Coding Visit Charges Inpatient E&M: 85793 Subs Hosp L3 07/23/24 1231 Cosigner Signature (if applicable): CC: ~ Signed [facility]05-12-2025 Progress note [facility] Medical Records Department [address] [place] [address] Progress Note - Cardiology 07/23/24 0826 MR#: [id number] Acct: [id number] Name: MICHELLE MITCHELL Rep #:[id number] : 1980 43 From: Mercy Bishop MD PCP: Dr. Dex Wilkinson MD Status:A DM IN Location: [facility] [id number]- 1 Subjective Subjective Patient continues to complain [...] 93.3 H, Lymph % (Auto) 2.5 L, [place] % (Auto) 2.5, Eos % (Auto) 0.0, [...] 93.3 H, Lymph % (Auto) 2.5 L, [place] % (Auto) 2.5, Eos % (Auto) 0.0, [...] with Dr. Zambrano at the [facility] and he has agreed to [...] right infraclavicular area. [place] (3) Hemorrhagic gastritis: QUALIFIERS: Chronicity: [...] arrange for transfer to the [facility] with her heart failure service. Charges/Coding Visit Charges Inpatient E&M: 97765 Subs Hosp L3 07/23/24 1105 Cosigner Signature (if applicable): CC: ~ Signed [facility]05-11-2025 Progress note Author Willian Ovalles [facility] Note Date/Time July 22, 2024 1:45p m [facility] Medical Records Department [address] [place] [address] Progress Note - Hospitalist 07/22/24 0852 MR#: [id number] Acct: [id number] Name: MICHELLE MITCHELL Rep #:[id number] : 1980 43 From: Willian Ovalles DO PCP: Dr. Dex Wilkinson MD Status:A DM IN Location: [place] [address] Reason for Visit Reason for Visit: Diagnoses [...] 87.1 H, Lymph % (Auto) 6.4 L, [place] % (Auto) 4.8, Eos % (Auto) 0.2, [...] on following up with Dr. Aguilar at [facility], CTS at [facility] that specialized in cardiac transplantation. She may be refferred by Dr. Aguilar since she will be following up there. PLAN: Plan VTE prophylaxis: LMWH. Charges/Coding Visit Charges Inpatient E&M: 23667 Subs Hosp L2 07/22/24 1345 <Electronically signed by Willian Ovalles DO> Cosigner Signature (if applicable): CC: ~ Signed [facility] Work Phone: 1(146) 146-451405-11-2025 Progress note Author Saman Clay [facility] Note Date/Time July 22, 2024 12:00 pm [facility] Medical Records Department [address] [place] [address] Progress Note - Cardiology 07/22/24 1157 MR#: [id number] Acct: [id number] Name: MICHELLE MITCHELL Rep #:[id number] : 1980 43 From: Saman Clay MD PCP: Dr. Dex Wilkinson MD Status:A DM IN Location: [place] [address] Subjective Subjective Continues to complain of abdominal [...] 87.1 H, Lymph % (Auto) 6.4 L, [place] % (Auto) 4.8, Eos % (Auto) 0.2, [...] 87.1 H, Lymph % (Auto) 6.4 L, [place] % (Auto) 4.8, Eos % (Auto) 0.2, [...] (if applicable): CC: ~ Signed [facility] [facility] Work Phone: 1(548) 632-855305-11-2025 Progress note [facility] Medical Records Department [address] [place] [address] Progress Note - Hospitalist 07/22/24 0852 MR#: [id number] Acct: [id number] Name: MICHELLE MITCHELL Rep #:[id number] : 1980 43 From: Willian Ovalles DO PCP: Dr. Dex Wilkinson MD Status:A DM IN Location: [place] [address] Reason for Visit Reason for Visit: Diagnoses [...] 87.1 H, Lymph % (Auto) 6.4 L, Middlesex % (Auto) 4.8, Eos % (Auto) 0.2, [...] on following up with Dr. Aguilar at [facility], CTS at [facility] that specialized in cardiac transplantation. She may be refferred by Dr. Aguilar since she will be following up there. PLAN: Plan VTE prophylaxis: LMWH. Charges/Coding Visit Charges Inpatient E&M: 45884 Subs Hosp L2 07/22/24 1345 Cosigner Signature (if applicable): CC: ~ Signed [facility]05-11-2025 Progress note [facility] Medical Records Department [address] [place] [address] Progress Note - Cardiology 07/22/24 1157 MR#: [id number] Acct: [id number] Name: MICHELLE MITCHELL Rep #:[id number] 6 : 1980 43 From: Saman Clay MD PCP: Dr. Dex Wilkinson MD Status:A DM IN [facility] Subjective Subjective Continues to complain [...] 87.1 H, Lymph % (Auto) 6.4 L, [place] % (Auto) 4.8, Eos % (Auto) 0.2, [...] 87.1 H, Lymph % (Auto) 6.4 L, [place] % (Auto) 4.8, Eos % (Auto) 0.2, [...] (if applicable): CC: ~ Signed [facility]05-10-2025 Consult note Author Saman Clay [facility] Note Date/Time July 21, 2024 1:26p [facility] Medical Records Department [address] [place] [address] Consultation - Cardiology 07/21/24 1316 MR#: [id number] Acct: [id number] Name: MICHELLE MITCHELL Rep #:[id number] 6 : 1980 43 From: Saman Clay MD PCP: Dr. Dex Wilkinson MD Status:A DM IN Location: [place] [address] Assessment & Plan Assessment/Plan (1) Acute systolic [...] contrast reflux into the hepatic veins. [facility] Medical History (Updated 07/21/24 @ 13:[address] 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 Ovarian cancer GERD [...] albuterol sulfate 90 mcg/actuation 1 inh inhalation ND N 07/26/23 Unknown History aerosol inhaler dicyclomine [...] 94.7 H, Lymph % (Auto) 2.7 L, [place] % (Auto) 1.5, Eos % (Auto) 0.0, [...] Albumin 4.3, Globulin 2.5, Albumin/Globulin Ratio 1.7, [id number] 07/20/24 20:05: Urine Color Straw, Urine Clarity Clear, Urine pH 6.0, Ur Specific Sturgis 1.020, Urine Protein 100 H, Urine Glucose [...] 92.6 H, Lymph % (Auto) 3.5 L, [place] % (Auto) 2.6, Eos % (Auto) 0.1, [...] 94.7 H, Lymph % (Auto) 2.7 L, [place] % (Auto) 1.5, Eos % (Auto) 0.0, [...] Clarity Clear, Urine pH 6.0, Ur Specific Sturgis 1.020, Urine Protein 100 H, Urine Glucose [...] 92.6 H, Lymph % (Auto) 3.5 L, [place] % (Auto) 2.6, Eos % (Auto) 0.1, [...] 20:06 IMPRESSION: No Acute Findings. Reading Location: [facility] Abdomen/Pelvis CT 07/20/24 21:15 IMPRESSION: 1. No acute findings in the abdomen and pelvis. 2. Mild hepatomegaly with heterogenous hepatic attenuation. 3. Small abdominopelvic ascites. Reading Location: [facility] Chest CTA 07/20/24 21:15 IMPRESSION: 1. No evidence of pulmonary embolism. 2. Diffuse interlobular septal thickening, scattered ground-glass opacities and bilateral pleural effusions, concerning for pulmonary edema. 3. Cardiomegaly, with trace pericardial effusion. 4. Contrast reflux into the hepatic veins suggestive of right heart dysfunction. Reading Location: [facility] 07/21/24 1326 <Electronically signed by Saman Clay MD> Cosigner Signature (if applicable): CC: Dr. Dex Wilkinson MD~ Signed [facility] Work Phone: 1(894) 339-843605-10-2025 Progress note Author Willian Ovalles [facility] Note Date/Time July 21, 2024 11:37 am [facility] Medical Records Department [address] [place] [address] Progress Note - Hospitalist 07/21/24 0753 MR#: [id number] Acct: [id number] Name: MICHELLE MITCHELL Rep #:[id number] 5 : 1980 43 From: Willian Ovalles DO PCP: Dr. Dex Wilkinson MD Status:A DM IN Location: [address] 1 Reason for Visit Reason for Visit: [...] 94.7 H, Lymph % (Auto) 2.7 L, [place] % (Auto) 1.5, Eos % (Auto) 0.0, [...] Albumin 4.3, Globulin 2.5, Albumin/Globulin Ratio 1.7, [id number] 07/20/24 20:05: Urine Color Straw, Urine Clarity Clear, Urine pH 6.0, Ur Specific Sturgis 1.020, Urine Protein 100 H, Urine Glucose [...] 92.6 H, Lymph % (Auto) 3.5 L, [place] % (Auto) 2.6, Eos % (Auto) 0.1, [...] 20:06 IMPRESSION: No Acute Findings. Reading Location: [facility] Abdomen/Pelvis CT 07/20/24 21:15 IMPRESSION: 1. No acute findings in the abdomen and pelvis. 2. Mild hepatomegaly with heterogenous hepatic attenuation. 3. Small abdominopelvic ascites. Reading Location: [facility] Chest CTA 07/20/24 21:15 IMPRESSION: 1. No evidence of pulmonary embolism. 2. Diffuse interlobular septal thickening, scattered ground-glass opacities and bilateral pleural effusions, concerning for pulmonary edema. 3. Cardiomegaly, with trace pericardial effusion. 4. Contrast reflux into the hepatic veins suggestive of right heart dysfunction. Reading Location: [facility] Physical Exam Const alert and no apparent [...] prophylaxis: LMWH. Charges/Coding Visit Charges Inpatient E&M: 47787 Subs Hosp L2 07/21/24 1137 <Electronically signed by Willian Ovalles DO> Cosigner Signature (if applicable): CC: ~ Signed [facility] Work Phone: 1(693) 294-148505-10-2025 Consult note [facility] Medical Records Department [address] [place] [address] Consultation - Cardiology 07/21/24 1316 MR#: [id number] Acct: [id number] Name: MICHELLE MITCHELL Rep #:[id number] 6 : 1980 43 From: Saman Clay MD PCP: Dr. Dex Wilkinson MD Status:A DM IN [facility] Assessment & Plan Assessment/Plan (1) Acute [...] contrast reflux into the hepatic veins. [facility] Medical History (Updated 07/21/24 @ 13:[address] 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 Ovarian cancer GERD [...] albuterol sulfate 90 mcg/actuation 1 inh inhalation ND N 07/26/23 Unknown History aerosol inhaler dicyclomine [...] 94.7 H, Lymph % (Auto) 2.7 L, [place] % (Auto) 1.5, Eos % (Auto) 0.0, [...] Albumin 4.3, Globulin 2.5, Albumin/Globulin Ratio 1.7, [id number] 07/20/24 20:05: Urine Color Straw, Urine Clarity Clear, Urine pH 6.0, Ur Specific Sturgis 1.020, Urine Protein 100 H, Urine Glucose [...] 92.6 H, Lymph % (Auto) 3.5 L, [place] % (Auto) 2.6, Eos % (Auto) 0.1, [...] 94.7 H, Lymph % (Auto) 2.7 L, [place] % (Auto) 1.5, Eos % (Auto) 0.0, [...] Clarity Clear, Urine pH 6.0, Ur Specific Sturgis 1.020, Urine Protein 100 H, Urine Glucose [...] 92.6 H, Lymph % (Auto) 3.5 L, [place] % (Auto) 2.6, Eos % (Auto) 0.1, [...] 20:06 IMPRESSION: No Acute Findings. Reading Location: [facility] Abdomen/Pelvis CT 07/20/24 21:15 IMPRESSION: 1. No acute findings in the abdomen and pelvis. 2. Mild hepatomegaly with heterogenous hepatic attenuation. 3. Small abdominopelvic ascites. Reading Location: [facility] Chest CTA 07/20/24 21:15 IMPRESSION: 1. No evidence of pulmonary embolism. 2. Diffuse interlobular septal thickening, scattered ground-glass opacities and bilateral pleural effusions, concerning for pulmonary edema. 3. Cardiomegaly, with trace pericardial effusion. 4. Contrast reflux into the hepatic veins suggestive of right heart dysfunction. Reading Location: [facility] 07/21/24 1326 Cosigner Signature (if applicable): CC: Dr. Dex Wilkinson MD~ Signed [facility]05-10-2025 Progress note [facility] Medical Records Department [address] [place] [address] Progress Note - Hospitalist 07/21/24 0753 MR#: [id number] Acct: [id number] Name: MICHELLE MITCHELL Angelo Rep #:[id number] 5 : 1980 43 From: Willian Ovalles DO PCP: Dr. Dex Wilkinson MD Status:A DM IN Location: [place] [address] Reason for Visit Reason for Visit: Diagnoses [...] 94.7 H, Lymph % (Auto) 2.7 L, [place] % (Auto) 1.5, Eos % (Auto) 0.0, [...] Albumin 4.3, Globulin 2.5, Albumin/Globulin Ratio 1.7, [id number] 07/20/24 20:05: Urine Color Straw, Urine Clarity Clear, Urine pH 6.0, Ur Specific Sturgis 1.020, Urine Protein 100 H, Urine Glucose [...] 92.6 H, Lymph % (Auto) 3.5 L, [place] % (Auto) 2.6, Eos % (Auto) 0.1, [...] 20:06 IMPRESSION: No Acute Findings. Reading Location: [facility] Abdomen/Pelvis CT 07/20/24 21:15 IMPRESSION: 1. No acute findings in the abdomen and pelvis. 2. Mild hepatomegaly with heterogenous hepatic attenuation. 3. Small abdominopelvic ascites. Reading Location: [facility] Chest CTA 07/20/24 21:15 IMPRESSION: 1. No evidence of pulmonary embolism. 2. Diffuse interlobular septal thickening, scattered ground-glass opacities and bilateral pleural effusions, concerning for pulmonary edema. 3. Cardiomegaly, with trace pericardial effusion. 4. Contrast reflux into the hepatic veins suggestive of right heart dysfunction. Reading Location: [facility] Physical Exam Const alert and no apparent [...] prophylaxis: LMWH. Charges/Coding Visit Charges Inpatient E&M: 09085 Subs Hosp L2 07/21/24 1137 Cosigner Signature (if applicable): CC: ~ Signed [facility]05-10-2025 History and physical note Author Sergio Whalen [facility] Note Date/Time July 21, 2024 6:28a m [facility] Medical Records Department [address] [place] [address] H&P Exam - Hospitalist 07/20/24 2322 MR#: [id number] Acct: [id number] Name: MICHELLE MITCHELL Rep #:[id number] 7 : 1980 43 From: Sergio Giles DO PCP: Dr. Dex Wilkinson MD Status:A DM IN Location: [facility] OKV626- 1 HPI - General General Date of [...] ~8 days ago who presentsto [facility] ER complaining of shortness of [...] expected to extend beyond 2 midnights. [facility] Medical History (Updated 07/21/24 @ 01:[address] 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 [facility] Ab[facility]/Pelvis CT 07/20/24 21:15 IMPRESSION: 1. No acute findings in the abdomen and pelvis. 2. Mild hepatomegaly with heterogenous hepatic attenuation. 3. Small abdominopelvic ascites. Reading Location: [facility] Chest CTA 07/20/24 21:15 IMPRESSION: 1. No evidence of pulmonary embolism. 2. Diffuse interlobular septal thickening, scattered ground-glass opacities and bilateral pleural effusions, concerning for pulmonary edema. 3. Cardiomegaly, with trace pericardial effusion. 4. Contrast reflux into the hepatic veins suggestive of right heart dysfunction. Reading [facility] Assessment & Plan Assessment/Plan (1) Heart failure [...] to evaluate LVEF. Finally, we will consult [facility] to see this patient on [...] culture and sensitivity data. Give acetaminophen prn [id number] (level 1-5/10) pain or fever. Give low-dose [...] 75 minutes. Charges/Coding Visit Charges Inpatient E&M: 23376 Init Hosp L3 07/21/24 0628 <Electronically signed by Sergio Umaña DO> Cosigner Signature (if applicable): CC: Dr. Sergio Umaña DO; Dr. Dex Wilkinson MD~ Signed [facility] Work Phone: 1([phone]) 445-602005-10-2025 History and physical note [facility] Medical Records Department [address] [place] [address] H&P Exam - Hospitalist 07/20/24 2322 MR#: [id number] Acct: [id number] Name: MICHELLE MITCHELL Rep #:[id number] 7 : 1980 43 From: Sergio Giles DO PCP: Dr. Dex Wilkinson MD Status:A DM IN Location: [place] [address] HPI - General General Date of Admission: [...] ~8 days ago who presentsto [facility] ER complaining of shortness of [...] expected to extend beyond 2 midnights. [facility] Medical History (Updated 07/21/24 @ 01:[address] Sergio Umaña ) Cancer History of steroid therapy Easy bruising Migraine headache History of hiatal hernia History of ulceration History of IBS Abdominal bloating Stomach pain Nausea & vomiting Shortness of breath on exertion Smoker History of echocardiogram Chest pain Pulmonary embolism Endometrial cancer Cervical cancer shelter current use of 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 Ovarian cancer GERD [...] albuterol sulfate 90 mcg/actuation 1 inh inhalation ND N 07/26/23 Unknown History aerosol inhaler dicyclomine [...] the patient's lab results. 07/20/24 19:26 07/20/24 19: Labs: Laboratory Results - last 24 hr 07/20/24 19:26: WBC 14.3 H, RBC 4.11 L, Hgb 13.2, Hct 40.2, MCV 97.8, MCH 32.1 H, MCHC 32.8, RDW Std Deviation 51.0 H, RDW Coeff of Damon 14.1, Plt Count 303, MPV10.3, Immature Gran % (Auto) 1.000 H, Neut % (Auto) 94.7 H, Lymph % (Auto) 2.7 L, [place] % (Auto) 1.5, Eos % (Auto) 0.0, [...] Clarity Clear, Urine pH 6.0, Ur Specific Sturgis 1.020, Urine Protein 100 H, Urine Glucose [...] 20:06 IMPRESSION: No Acute Findings. Reading Location: [facility] Abdomen/Pelvis CT 07/20/24 21:15 IMPRESSION: 1. No acute findings in the abdomen and pelvis. 2. Mild hepatomegaly with heterogenous hepatic attenuation. 3. Small abdominopelvic ascites. Reading Location: [facility] Chest CTA 07/20/24 21:15 IMPRESSION: 1. No evidence of pulmonary embolism. 2. Diffuse interlobular septal thickening, scattered ground-glass opacities and bilateral pleural effusions, concerning for pulmonary edema. 3. Cardiomegaly, with trace pericardial effusion. 4. Contrast reflux into the hepatic veins suggestive of right heart dysfunction. Reading Location: [facility] Assessment & Plan Assessment/Plan (1) Heart failure [...] to evaluate LVEF. Finally, we will consult [facility] to see this patient on [...] culture and sensitivity data. Give acetaminophen prn [id number] (level 1-5/10) pain or fever. Give low-dose [...] 75 minutes. Charges/Coding Visit Charges Inpatient E&M: 81517 Init Hosp L3 07/21/24 0628 Cosigner Signature (if applicable): CC: Dr. Sergio Umaña DO; Dr. 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 Torrez (internal medicine) [facility] Narrative: Patient was initially tachypneic otherwise afebrile [...] anemia or thrombocytopenia noted BMP without significant Sigurd abnormalities, no sign of RADHA, LFTs within [...] to PCU This note was generated with [employer] dictation software. It may contain incorrectwords, spelling, [...] 94.7 H Lymph % (Auto) 2.7 L [place] % (Auto) 1.5 Eos % (Auto) 0.0 [...] Clarity Clear Urine pH 6.0 Ur Specific [place]urgis 1.020 Urine Protein 100 H Urine Glucose [...] 20:06 IMPRESSION: No Acute Findings. Reading Location: [facility] Chest CTA 07/20/24 21:15 IMPRESSION: 1. No evidence of pulmonary embolism. 2. Diffuse interlobular septal thickening, scattered ground-glass opacities and bilateral pleural effusions, concerning for pulmonary edema. 3. Cardiomegaly, with trace pericardial effusion. 4. Contrast reflux into the hepatic veins suggestive of right heart dysfunction. Reading Location: [facility] Discharge Plan Triage Chief Complaint: Shortness of [...] MD [Primary Care Provider] - Print Language: Armenian What to do if you have Problems For any increased pain, shortness of breath, bleeding, nausea or vomiting, chestpain, or any unexpected problems, contact your Primary Care Provider. Call [facility] ([phone]) or report to the closest Emergency Room. Call 911 if necessary. 07/20/242327 <Electronically signed by Carlos Nair DO> Cosigner Signature (if applicable): CC: Dr. 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 Torrez (internal medicine) [facility] Narrative: Patient was initially tachypneic otherwise afebrile [...] to PCU This note was generated with [employer] dictation software. It may contain incorrectwords, spelling, [...] 94.7 H Lymph % (Auto) 2.7 L [place] % (Auto) 1.5 Eos % (Auto) 0.0 [...] Clarity Clear Urine pH 6.0 Ur Specific [place]urg[place] 1.020 Urine Protein 100 H Urine Glucose [...] 20:06 IMPRESSION: No Acute Findings. Reading Location: [facility] Chest CTA 07/20/24 21:15 IMPRESSION: 1. No evidence of pulmonary embolism. 2. Diffuse interlobular septal thickening, scattered ground-glass opacities and bilateral pleural effusions, concerning for pulmonary edema. 3. Cardiomegaly, with trace pericardial effusion. 4. Contrast reflux into the hepatic veins suggestive of right heart dysfunction. Reading Location: [facility] Discharge Plan Triage Chief Complaint: Shortness of [...] MD [Primary Care Provider] - Print Language: Armenian What to do if you have Problems For any increased pain, shortness of breath, bleeding, nausea or vomiting, chestpain, or any unexpected problems, contact your Primary Care Provider. Call [facility] ([phone]) or report tothe closest Emergency Room. Call 911 if necessary. 07/20/246 Cosigner Signature (if applicable): CC: Dr. Dex Wilkinson MD ~ Signed [facility]05-09-2025 Radiology Diagnostic study note [facility] [address] [place] [address] Abdomen/Pelvis W IV Cont ONLY MR#: [id number] Acct: [id number] Name: MICHELLE MITCHELL Rep #: [id number] 3 : 1980 F 43 From: Mariana Moreno MD PCP: Dr. Dex Wilkinson MD Status: R EG ER Study:Abdomen/Pelvis W IV Cont ONLY Date of E xam: 07/20/24 Exam# [id number] Ordering Dr: Almaz Nair DO PROCEDURE: ABDOMEN/PELVIS [...] attenuation. 3. Small abdominopelvic ascites. Reading Location: [facility] CC: Dr. Dex Wilkinson MD; Dr. Carlos Nair DO ~ Tap And Die Maker Technician: Signed [facility]05-09-2025 Radiology Diagnostic study note [facility] [address] [place] [address] CTA Chest W/WO Contrast MR#: [id number] Acct: [id number] Name: MICHELLE MITCHELL Rep #: [id number] 2 : 1980 F 43 From: Mariana Moreno MD PCP: Dr. Dex Wilkinson MD Status: R EG ER Study:CTA Chest W/WO Contrast Date of Exam: 07/20/24 Exam# [id number] Ordering Dr: Almaz Nair DO PROCEDURE: CTA [...] Wilkinson MD; Dr. Carlos Nair DO ~ Tap And Die Maker Technician: Signed [facility]05-09-2025 Radiology Diagnostic study note [facility] [address] [place], [place] [address] Chest 1 View (Portable) MR#: [id number] Acct: [id number] Name: MICHELLE MITCHELL Rep #: [id number] 5 : 1980 F 43 From: Mariana Moreno MD PCP: Dr. Dex Wilkinson MD Status: R EG ER Study:Chest 1 View (Portable) Date of Exam: 07/20/24 Exam# [id number] Ordering Dr: Almaz Nair DO PROCEDURE: CHEST [...] Wilkinson MD; Dr. 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 Narrative Medical decision making narrative: HISTORY OF [...] reviewed, Vital signs reviewed Constitutional: please see [facility] HENT: MMM Eyes: Pupils equal round and [...] others: none Consults: Dr. Torrez (internal medicine) [facility] Narrative: Patient was initially tachypneic otherwise afebrile [...] anemia or thrombocytopenia noted BMP without significant Sigurd abnormalities, no sign of RADHA, LFTs within [...] to PCU This note was generated with [employer] dictation software. It may contain incorrectwords, spelling, [...] 94.7 H Lymph % (Auto) 2.7 L [place] % (Auto) 1.5 Eos % (Auto) 0.0 [...] Clarity Clear Urine pH 6.0 Ur Specific Sturgis 1.020 Urine Protein 100 H Urine Glucose [...] 20:06 IMPRESSION: No Acute Findings. Reading Location: [facility] Chest CTA 07/20/24 21:15 IMPRESSION: 1. No evidence of pulmonary embolism. 2. Diffuse interlobular septal thickening, scattered ground-glass opacities and bilateral pleural effusions, concerning for pulmonary edema. 3. Cardiomegaly, with trace pericardial effusion. 4. Contrast reflux into the hepatic veins suggestive of right heart dysfunction. Reading Location: [facility] Discharge Plan Triage Chief Complaint: Shortness of [...] MD [Primary Care Provider] - Print Language: Armenian What to do if you have Problems For any increased pain, shortness of breath, bleeding, nausea or vomiting, chestpain, or any unexpected problems, contact your Primary Care Provider. Call [facility] ([phone]) or report to the closest Emergency Room. Call 911 if necessary. 07/20/242327 <Electronically signed by Carlos Nair DO> Cosigner Signature (if applicable): CC: Dr. Dex Wilkinson MD ~ Signed [facility] Work Phone: 1(493) 726-635305-01-2025 [facility]04-27-2025 NoteHNO ID: [id number] Author: DEJA CASTELAN RN Service: Care Management [...] Primary Care Physician Name/Phone: Dr. Dex Wilkinson- [phone] Additional Information: Discharge order written for today. No skilled home going needs identified at discharge. SIGNATURE: Deja Castelan RN PATIENT NAME: Michelle Mitchell DATE: July 08, 2024 TIME: 7:29 [facility] SystemMkhkcull81-70-5945 NoteHNO ID: [id number] Author: DEX WILKINSON MD Service: Family Practice [...] MD DATE: July 07, 2024 TIME: 8:21 [facility]v59-[facility]-7328 NoteHNO ID: [id number] Author: TANJA VALVERDE RN Service: Care Management [...] Mitchell DATE: July 06, 2024 TIME: 11:23 [facility] HospitalPlzjqsjc87-96-4304 NoteHNO ID: [id number] Author: DEX WILKINSON MD Service: Family Practice [...] -- -- -- -- -- -- -- 07/04/241958 144/84 [...] MD DATE: July 06, 2024 TIME: 8:07 [facility]MAden[facility] SystemSqkauwth87-45-1453 NoteHNO ID: [id number] Author: RU GARCIA, Accounting Machine Mechanic Service: Clinical Cardiology Author Type: Accounting Machine Mechanic Type: Progress Notes Filed: 07/05/2024 11:07 Note Text: Summary: Pacemaker Check Pacemaker checked with [employer] and data transmitted. Spoke to rep who will fax report directly to the floor. Floor notified.[facility]den[facility] Health SystemLbafujcj46-53-0444 NoteHNO ID: [id number] Author: TANJA VALVERDE RN Service: Care Management Author Type: Registered Nurse Type: Care Mgt Initial Assessment Filed: 07/05/2024 09:10 Note Text: CARE MANAGEMENT: ASSESSMENT AND DISCHARGE PLAN SERVICE DATE: July 05, 2024 SERVICE TIME: 9:05 AM head knitting machine fixer spoke with patient to complete Care Management Assessment. Introduction made and role of Care Management explained. PCP: Dex Wilkinson MD - Patient confirmed. Primary Contact: Extended Emergency Contact Information Primary Emergency Contact: Stephen Babar Librado Address: [address] [place] [address] [address] Relation: Spouse Admission Status: Inpatient Insurance Provider: BUTLER [employer]dom [facility] Discharge Planning requested by: Per Department Practice Potential Transition Plans Home Advance Directives Current Advance Directive: None Lead Generation Representative Attempted to Assist with AD Completion: Yes [...] General wellness, Be able to go home Darwin of Choice Explained: Darwin of Choice Given: No (Discharge Needs: To be Determined) Are you interested in bedside delivery of your medications? N/A Discharge Pharmacy Preference: [facility] in [place] Discharge Planning Participant(s): Family (Spouse and 19 [...] Mitchell DATE: July 05, 2024 TIME: 9:05 [facility] HospitalQwamcyjd26-05-1107 NoteHNO ID: [id number] Author: ALEKSANDRA CALDWELL APRN.CNP Service: General Internal Medicine Author Type: Nurse Practitioner Type: Progress Notes Filed: 07/05/2024 00:00 Note Text: INTERNAL MEDICINE PROGRESS NOTE SERVICE DATE: 07/04/2024 SERVICE TIME: 2099 Primary Attending: Shanna George MD Subjective CHIEF COMPLAINT: Abdominal Pain (was seen twice at [place] her dr told her to come here pt states pain is not getting better) HPI: This is a 43 year old female with a past medical history significant for breast cancer at age 17 (s/p lumpectomy and chemotherapy), ovarian cancer s/p oophorectomy, endometrial cancer s/p ablation, DVT/PE (not currently on anticoagulation), CHF, pericarditis, hypertrophic obstructive cardiomyopathy, ICD placement, PUD, GERD. Patient recently admitted 3/5/25-05/22/24 for leg abscess and was treated with abx and discharged home. Now patient in ED 07/04 with complaints of severe abd pain x3 days. Patient has presented to [facility] 2 times in the past few days with the same complaints and was discharge home. Patient continued to have worsening pain she discussed with her PCP Dr. Wilkinson who told her to go to [facility]. Lab work showing some mild [...] Recent Labs 07/04/24 1 (more content not included)...[facility] SystemDdeztkbc98-28-4273 Evaluation note* Diagnosis Onset Date Resolution Status [...] Pulmonary hypertension acute Ma y 2024 8:24am [place] [employer] Work Phone: 1(610) 780-547104-22-2025 Evaluation note* Diagnosis Onset Date Resolution Status [...] h2024 12:26am Nausea & vomiting resolved July 10t h2024 12:26am Acute systolic congestive he art [...] Pulmonary hypertension acute Ma y 2024 8:24am [facility] Work Phone: 1(419) 874-669604-22-2025 Evaluation note* Diagnosis Onset Date Resolution Status [...] disease) acute August 20, 2024 5 :47pm [facility] Work Phone: 1(375) 777-441704-22-2025 Evaluation note* Diagnosis Onset Date Resolution Status [...] August 08, 2024 8:24am Pulmonary hypertension acute 2024 8:24am Abdominal pain inactive August 08, 2024 8:24am GERD (gastroesophageal reflu x disease) inactive August 08, 2024 8 :24am Elevated liver enzymes resolved Ju ne 2024 5:47pm Abdominal pain inactive August 20, 2024 5:47pm Dilated pancreatic duct inactive J une 2024 5:47pm GERD (gastroesophageal reflu x disease) inactive August 20, 2024 5 :47pm [facility] Work Phone: 1(979) 105-910604-22-2025 Evaluation note* Diagnosis Onset Date Resolution Status [...] Chronic abdominal pain chronic Ju 2024 11:43pm [facility] Work Phone: 1(139) 631-988504-22-2025 Evaluation note* Diagnosis Onset Date Resolution Status [...] abdominal pain chronic Ju ly 2024 12:47pm [place] [employer] Work Phone: 1(585) 772-284004-22-2025 Evaluation note* Diagnosis Onset Date Resolution Status [...] in place chronic October 03, 2024 11:25am [facility] [employer] Work Phone: 1(356) 642-190904-22-2025 Evaluation note* Diagnosis Onset Date Resolution Status [...] in place chronic October 17, 2024 3:17pm [facility] Work Phone: 1(842) 430-713904-20-2025 Radiology Diagnostic study note [facility] [address] [place] [address] Abdomen/Pelvis W IV Cont ONLY MR#: [id number] Acct: [id number] Name: MICHELLE MITCHELL Rep #: [id number] 2 : 1980 F 43 From: Natali cantu Afuwape DO PCP: Dr. Dex Wilkinson MD Status: R EG ER Study:Abdomen/Pelvis W IV Cont ONLY Date of E xam: 07/01/24 Exam# [id number] Ordering Dr: Anita Wade PROCEDURE: ABDOMEN/PELVIS W [...] Dr. Dex Wilkinson MD; MARCIO Haywood ~ Tap And Die Maker Technician: Signed [facility]04-20-2025 Telephone encounter Note* Telephone Encounter - Ella Cohen RN - 07/01/2024 3:41 PM EDT Your fax has been successfully sent to Dr. Wilkinson at [phone]. From: Ella Cohen RN 07/01/2024 3:37:02 PM Origin Record Created by SHANTE 07/01/2024 3:37:12 PM Conversion [RFPEEF5.tmp.PRT] Type: application/postscript G3 to TIFF #1: Success [image/g3] (77ms) GhostScript TIFF #1: Success [image/tiff] (209ms) (SHWP-[id number]:WORKSRV3) 07/01/2024 3:37:18 PM Transmission Record Sent to [phone] with remote ID [id number] Result: Success Page record: 1 - 3 Elapsed time: 01:39 on channel 48 07/01/2024 3:37:19 PM Conversion Successfully created cover sheet. Type: application/vnd.openxmlformats-officedocument.wordprocessingml.document G3 to TIFF #1: Success [image/g3] (11ms) GhostScript TIFF #1: Success [image/tiff] (70ms) Resubmitted: [application/postscript] Word Automation #1: Success [image/g3] (1519ms) (SHWP-[id number]:WORKSRV1) [facility] CenterGjowfy55-13-3475 Miscellaneous Notes* Telephone Encounter - Ella Cohen RN - 07/01/2024 3:41 PM EDT Your fax has been successfully sent to Dr. Wilkinson at [phone]. From: Ella Cohen RN 07/01/2024 3:37:02 PM Origin Record Created by SHANTE 07/01/2024 3:37:12 PM Conversion [RFPEEF5.tmp.PRT] Type: application/postscript G3 to TIFF #1: Success [image/g3] (77ms) GhostScript TIFF #1: Success [image/tiff] (209ms) (SHWP-[id number]:WORKSRV3) 07/01/2024 3:37:18 PM Transmission Record Sent to [phone] with remote ID [id number] Result: Success Page record: 1 - 3 Elapsed time: 01:39 on channel 48 07/01/2024 3:37:19 PM Conversion Successfully created cover sheet. Type: application/vnd.openxmlformats-officedocument.wordprocessingml.document G3 to TIFF #1: Success [image/g3] (11ms) GhostScript TIFF #1: Success [image/tiff] (70ms) Resubmitted: [application/postscript] Word Automation #1: Success [image/g3] (1519ms) ([facility] HOSPITALP-KSNZJ784:WORKSRV1) * Telephone Encounter - Ella Cohen RN [...] smelled fecal. 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 R: Patient understands care advice to go to ED now or call 911. Patient states she cannot leave [facility] at this time, but will go as soon as she has someone to take over care. Patient strongly advised to go immediately. She advises she will go to [place]. No further needs at this time. Patient [...] menstrual period? no Protocols used: Abdominal Pain- Qytxk-GECOS-FW documented in this [facility]04-20-2025 Telephone encounter Note* Telephone Encounter [...] smelled fecal. 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 R: Patient understands care advice to go to ED now or call 911. Patient states she cannot leave [facility] at this time, but will go as soon as she has someone to take over care. Patient strongly advised to go immediately. She advises she will go to [place]. No further needs at this time. Patient [...] menstrual period? no Protocols used: Abdominal Pain- Paxkd-LVURS-BR [facility] CenterMgyzaw38-17-0160 NoteHNO ID: [id number] Author: VANDANA CASTILLO RN Service: Care Management [...] Care Physician Name/Phone: Dex Wilkinson MD - [phone] Additional Information: Orders received for patient to discharge home. No skilled needs noted. Patient agreeable to discharge plan. Spouse to transport home. Bedside RN updated. SIGNATURE: Vandana Castillo RN PATIENT NAME: Michelle Mitchell DATE: May 21, 2024 TIME: 8:37 [facility]MAdena Health SystemNslmztjg96-66-4502 NoteHNO ID: [id number] Author: LUIS MIGUEL VUONG MD Service: Cardiovascular [...] hours. SIGNATURE: Luis Miguel Vuong MD CELL; [phone] DATE: May 20, 2024 TIME: 11:40 [facility] HospitalFgbzbajf85-51-2775 NoteHNO ID: [id number] Author: DEX WILKINSON MD Service: Family Practice [...] Oral (!) 58 20 97 % -- 05/21/240 -- -- -- 62 -- -- -- [...] MD DATE: May 21, 2024 TIME: 8:16 AMAdena Health SystemVeswxadj84-28-3180 NoteHNO ID: [id number] Author: DEX WILKINSON MD Service: Family Practice [...] ?F) Temporal 66 18 95 % -- 05/18/241599 -- -- -- 63 -- -- -- [...] MD DATE: May 19, 2024 TIME: 7:24 [facility] HospitalUobxudoo40-79-9726 NoteHNO ID: [id number] Author: JUNIOR SPICER LISW Service: Care Management Author Type: Email Marketing Manager Type: Care Mgt Progress Note Filed: [...] Mitchell DATE: May 18, 2024 TIME: 4:49 PMAdena Health SystemQkzniwgq90-61-2126 NoteHNO ID: [id number] Author: DEX WILKINSON MD Service: Family Practice [...] MD DATE: May 19, 2024 TIME: 7:11 AMAdena Health SystemBbpzwovr31-53-2722 NoteHNO ID: [id number] Author: DEX WILKINSON MD Service: Family Practice [...] -- -- 61 -- -- -- 05/17/24 142 103/59 36.5 ?C (97.7 ?F) Oral 66 16 94 % -- 05/17/24 1200 -- -- -- 69 -- -- -- 05/17/24 08 111/53 36.3 ?C (97.4 ?F) Oral 63 [...] MD DATE: May 18, 2024 TIME: 6:55 AMAdena Health SystemEyqzeudo88-39-3107 NoteHNO ID: [id number] Author: ALEXANDRIA COLE LSW Service: Care Management Author Type: Email Marketing Manager Type: Care Mgt Initial Assessment Filed: 05/16/2024 12:57 Note Text: CARE MANAGEMENT: ASSESSMENT AND DISCHARGE PLAN SERVICE DATE: May 16, 2024 SERVICE TIME: 12:53 PM PCP: Dex Wilkinson MD-verified Primary Contact: Extended Emergency Contact Information Primary Emergency Contact: Babar Mitchell Address: [address] [place] [address] [place] Relation: Spouse Admission Status: Inpatient Insurance Provider: BUTLER [employer] PPO Discharge Planning requested by: Per Department Practice Potential Transition Plans Home, To Be Determined Advance Directives Current Advance Directive: None Lead Generation Representative Attempted to Assist with AD Completion: Yes [...] Be able to go home, Less pain Darwin of Choice Explained: Darwin of Choice Given: No Reason Not Given: [...] Is from home w/spouse and 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 Spouse to transport home when medically ready for discharge. SIGNATURE: Alexandria Cole ROTARY ENGINE ASSEMBLER, JUNIOR LEGAL SECRETARY PATIENT NAME: Michelle Mitchell DATE: May 16, 2024 TIME: 12:53 PMAdena Health SystemBvffemgi92-63-6799 NoteHNO ID: [id number] Author: DEX WILKINSON MD Service: Family Practice [...] MD DATE: May 16, 2024 TIME: 8:00 [facility] HospitalTinaqrlw34-16-5288 NoteHNO ID: [id number] Author: GIULIANO LEZAMA APRN.[place] CLASSIFIER Service: General Internal Medicine Author Type: Nurse [...] 96 % -- (more content not included)... [facility] SystemNoswigww28-98-9650 JwskHCOF-IOI-5 (AGENT OF COVID-19) RNA: Not detected INFLUENZA A RNA: Not detected INFLUENZA B RNA: Not detected RESPIRATORY SYNCYTIAL VIRUS (RSV) RNA: Not detectedAdena Health SystemComment on above:Performed By: #### [id number] ####[facility] LABORATORYCLIA [id number] [place] [address] [place] MRLLHSW41-82-9653 Evaluation note* Diagnosis Onset Date Resolution Status Admit Date Hypertrophic cardiomyopathy acute March 28, 2024 11:28am ICD (implantable cardioverter-defibrillator) in place acute March 28 11:28am [facility] Work Phone: 1(940) 802-394001-15-2025 Evaluation note* Diagnosis Onset Date Resolution Status [...] acute July 20, 2024 11:40pm [facility] Work Phone: 1(715) 847-488901-15-2025 Evaluation note* Diagnosis Onset Date Resolution Status [...] 12:26am Heart failure of unknown etiology acute May 10th, 2025 1 2:26am Hemorrhagic gastritis acute July 21, [...] Hypertension chronic July 21 12:26am [facility] Work Phone: 1(644) 558-986608-19-2024 Evaluation + Plan noteExtracted from: Title:Clinical Document Author:VICTOR M ORTIZ Date:10/31/23 [place] ADMISSION HISTORY AN D PHYSICIAL CHIEF COMPLAINT: HISTORY OF PRESENT ILLNESS: REVIEW OF SYSTEMS: ACTIVE PROBLEMS: (5) Anxiety associated with depression (973384017) Hypertrophic cardiomyopathy (550374721) IBS (irritable bowel syndrome) (61407663) Rectal bleeding (696072657) Tobacco use (5814050146) MEDICATIONS: Active Inpt Meds: None Active PRN Meds: None One Time Meds: None Active IV Meds: Lactated Ringers Infusion 1,000 mL (LR 1,000 mL) Start: 10/31/23 9:47:00 EDT, Rate: 50 mL/hr, 10/31/23 9:47:00 EDT ALLERGIES: (3) codeine morphine Zithromax FAMILY HISTORY: SOCIAL HISTORY: PHYSICAL EXAM: VITALS: XgchsgFcqcDQPpaxdZCMnH7RRH7RmjvMa(kg) 10/30 10:0436.6--732330VP34/19 57.0 24 Hr Tmax: 36.6 at 10/30 [...] from: Title:Clinical Document Author:VICTOR M ORTIZ Date:10/31/23 [facility] ADMISSION HISTORY AN D PHYSICIAL CHIEF COMPLAINT: HISTORY OF PRESENT ILLNESS: REVIEW OF SYSTEMS: ACTIVE PROBLEMS: (5) Anxiety associated with depression (575733703) Hypertrophic cardiomyopathy (218800525) IBS (irritable bowel syndrome) (42789118) Rectal bleeding (881466673) Tobacco use (5652922981) MEDICATIONS: Active Inpt Meds: None Active PRN Meds: None One Time Meds: None Active IV Meds: Lactated Ringers Infusion 1,000 mL (LR 1,000 mL) Start: 10/31/23 9:47:00 EDT, Rate: 50 mL/hr, 10/31/23 9:47:00 EDT ALLERGIES: (3) codeine morphine Zithromax FAMILY HISTORY: SOCIAL HISTORY: PHYSICAL EXAM: VITALS: WyavpkRztbTQNnadfPOKxB7KNN2JuckRs(kg) 10/30 10:0436.6--965062XX80/19 57.0 24 Hr Tmax: 36.6 at 10/30 [...] changes to the H&P unless noted below. [facility] 08-19-2024 Hospital Discharge instructions Patient Education 10/31/2023 [...] until you are awake and alert. Take urdr-mgw-zxacgfk and prescription medicines only as told by [...] 12/19/2013 Document Revised: 02/10/2018 Document Reviewed: 06/19/2016 [employer] Patient Education 2020 [employer] 10/31/2023 10:42:58 Colonoscopy, Adult, Care After, Nzmn-tv-Hwzg Colonoscopy, Adult, Care After This sheet gives [...] are soft and easy to digest. Take rqax-gbx-hdlemag or prescription medicines only as told by [...] 04/02/2011 Document Revised: 12/29/2017 Document Reviewed: 11/22/2016 [employer] Patient Education 2020 [employer]. Follow Up Care 10/13/2023 09:56:55 With:VICTOR M ORTIZ MD Address: [address] [facility] [address] [place] [address] [phone] When: Unknown Comments:The office will call within 2 weeks with pathology results and a follow up visit will be scheduled. [facility] 08-19-2024 Summary of episode note Discharge Instructions Thank you for allowing [facility] to assist you with your healthcare needs. The following is importantdischarge information regarding your hospital visit. Your Care Team DEX WILKINSON MD What to do next Follow Up Appointments Follow Up with VICTOR M ORTIZ MD Where:[address] [facility] [address] [place] [address] [phone] Additional Information: The office will call within [...] until you are awake and alert. Take frdn-xra-lpcgaeo and prescription medicines only as told by [...] 12/19/2013 Document Revised: 02/10/2018 Document Reviewed: 06/19/2016 [employer] Patient Education 2020 [employer] Colonoscopy, Adult, Care After This sheet [...] are soft and easy to digest. Take jttb-wrb-pvysoop or prescription medicines only as told by [...] 04/02/2011 Document Revised: 12/29/2017 Document Reviewed: 11/22/2016 [employer] Patient Education 2020 [employer]. Additional Information VACCINATE! IT SAVES LIVES! Members of the community who have not yet received the COVID-19 vaccine and would like to receive it can visit one of [facility] vaccine clinics. There are many vaccine clinic locations within the [facility]. For locations and available times, please visit https://gettheshot.coronavirus.[place].gov/. It is important to note that some COVID mobile vaccine clinics are held outdoors and may be canceled in rainy or stormy conditions. To learn more about pediatric vaccinations (ages 5-11), we invite you to visit the [employer] webpage. https://www.ticckles.org/pages/1364-Xzaxx-Dxxlynktjma-Rwbqcsvvlb-Hyokb-Fjc stions.htmlTo learn more about the COVID-19 vaccine, we invite you to visit the CDC website for a list of frequently asked questions.https://www.cdc.gov/coronavirus/2019-ncov/vaccines/faq.html [employer] Patient Portal Access Instructions: Stay connected with your healthcare team and access your personal medical information anytime with the [employer] Patient Portal. Please follow the directions below to create your [employer] account: 1.Access the email account you provided upon registration to the hospital/physician office.2.Look for an invitation email from [facility].3.Open the email and access the invitation link: AcceptInvitation to [employer].4.Fill in the required pandey to create your account. To access your account, visit [employer]. Click the blue button labeled Access Patient Portal and then log in with the username and password that you created in the steps above. You will be able to view your test results, lab results, a summary of your visits, upcoming appointments and more. There is also a convenient messaging option where you can send secure messages to your p rositavider. In addition, you will have the ability to download any documents or summaries to your computer and/or send the information securely to a physician. Remember that your healthcare information is confidential, so carefully consider who you will allowto register on the [facility] Patient Portal for access to your information. You can also access the [facility] Patient Portal on the [facility] johanna. Simply click on Patient Portal and then log into your account. If you would like to receive a full copy of your medical records, please contact the [facility] Medical Records Department by calling [phone], Tuesday through Tuesday between 8 a.m. and [...] Call your local pharmacy or go to [email or web address]/[email or web address] to find one close to you.3.Make use of household items: Use cat litter or old coffee grounds to dispose medications if other options arenot available. Mix your drugs with these household products, seal them in an airtight container andthrow it into the garbage. Call [facility]: [phone] to be sure your drugs can be [...] Adult, Care After Colonoscopy, Adult, Care After, Zywr-cg-Tpfc Medication Leaflets My discharge plan and instructions have been reviewed and explained to me and I,MICHELLE MITCHELL understand my current condition and have read and understand these discharge instructions. I have received a written copy of the plan/instructions. If I have questions, I am aware that I should contact my doctor. Patient/Media Traffic Manager Signature: Date/Time: Relationship to Patient: Witness Name/Signature: Date/Time: [facility]08-19-2024 Note [facility] ADMISSION HISTORY AND PHYSICIAL CHIEF COMPLAINT: HISTORY OF PRESENT ILLNESS: REVIEW OF SYSTEMS: ACTIVE PROBLEMS: (5) Anxiety associated with depression (448867105) Hypertrophic cardiomyopathy (634468806) IBS (irritable bowel syndrome) (06301031) Rectal bleeding (641396261) Tobacco use (2403552920) MEDICATIONS: Active Inpt Meds: None Active PRN Meds: None One Time Meds: None Active IV Meds: Lactated Ringers Infusion 1,000 mL (LR 1,000 mL) Start: 10/31/23 9:47:00 EDT, Rate: 50 mL/hr, 10/31/23 9:47:00 EDT ALLERGIES: (3) codeine morphine Zithromax FAMILY HISTORY: SOCIAL HISTORY: PHYSICAL EXAM: VITALS: QznpdqCrkqQOJaxlrPAOzI3WOC0VvsjIs(kg) 10/30 10:0436.6--920400OF30/19 57.0 24 Hr Tmax: 36.6 at 10/30 [...] M ORTIZ MD on 10/31/2023 10:12 AM [facility]08-19-2024 Note [facility] ADMISSION HISTORY AND PHYSICIAL CHIEF COMPLAINT: HISTORY OF PRESENT ILLNESS: REVIEW OF SYSTEMS: ACTIVE PROBLEMS: (5) Anxiety associated with depression (532393732) Hypertrophic cardiomyopathy (859425654) IBS (irritable bowel syndrome) (25909614) Rectal bleeding (947116057) Tobacco use (1231230181) MEDICATIONS: Active Inpt Meds: None Active PRN Meds: None One Time Meds: None Active IV Meds: Lactated Ringers Infusion 1,000 mL (LR 1,000 mL) Start: 10/31/23 9:47:00 EDT, Rate: 50 mL/hr, 10/31/23 9:47:00 EDT ALLERGIES: (3) codeine morphine Zithromax FAMILY HISTORY: SOCIAL HISTORY: PHYSICAL EXAM: VITALS: RbcyxeDcmqQCXuwftMSKyC5YHK1SjanAl(kg) 10/30 10:0436.6--438990OQ51/19 57.0 24 Hr Tmax: 36.6 at 10/30 [...] M ORTIZ MD on 10/31/2023 10:11 AM [facility]08-19-2024 Anesthesiology Consult note Patient: MICHELLE MITCHELL Age: [...] Insertion of cardiac defibrillator using fluoroscopic guidance (0569216187). Comments: 10/26/2023 10:54 EDT Sophie Martinez RN PACER WITH DEFIB Mastectomy of left breast (8792324622). Laparoscopic cholecystenterostomy (6448715221). H/O: tubal ligation (848070102). Ablation of uterine fibroid using magnetic resonance imaging guidance (5274459078). History of appendectomy (0008980414). Social History: Social & Psychosocial Habits Alcohol [...] Equipment: Extension set . Assessment and Plan Citizen Of [place] Society of Anesthesiologists (ASA) physical status classification: Class II. Anesthetic Preoperative Plan Anesthetic technique: MAC. Postoperative pain management: Per surgeon. Informed consent: signed by patient. Digitally Signed by ANGELIA GIBBS on 10/31/2023 10:06 AM [facility]04-22-2024 Telephone encounter Note* Telephone Encounter - Angela Krishna RN - 07/04/2023 7:34 PM EDT To:Angela Krishna 07/04/2023 7:33 PM Your fax has been successfully sent to Dr Wilkinson at [phone]. 07/04/2023 7:30:51 PM Transmission Record Sent to [phone] with remote ID [id number] Result: (0) Success Page record: 1 - 3 Elapsed time: 01:48 on channel 50 07/04/2023 7:29:28 PM Conversion Record Successfully created cover sheet. Type: application/vnd.openxmlformats-officedocument.wordprocessingml.document G3 to TIFF #1: Success [image/g3] (63ms) GhostScript TIFF #1: Success [image/tiff] (220ms) Resubmitted: [application/postscript] Word Automation #1: Success [image/tiff] (1411ms) ([id number]:WORKSRV2) 07/04/2023 7:29:06 PM Conversion Record [RFPDA51.tmp.PRT] Type: application/postscript G3 to TIFF #1: Success [image/g3] (92ms) GhostScript TIFF #1: Success [image/tiff] (359ms) ([id number]:WORKSRV2) 07/04/2023 7:28:56 PM Origin Record Created by [facility] [id number] Miscellaneous Notes* Telephone Encounter - Angela Krishna RN - 07/04/2023 7:34 PM EDT To:Angela Krishna 07/04/2023 7:33 PM Your fax has been successfully sent to Dr Wilkinson at [phone]. 07/04/2023 7:30:51 PM Transmission Record Sent to [phone] with remote ID [phone] Result: (0) Success Page record: 1 - 3 Elapsed time: 01:48 on channel 50 07/04/2023 7:29:28 PM Conversion Record Successfully created cover sheet. Type: application/vnd.openxmlformats-officedocument.wordprocessingml.document G3 to TIFF #1: Success [image/g3] (63ms) GhostScript TIFF #1: Success [image/tiff] (220ms) Resubmitted: [application/postscript] Word Automation #1: Success [image/tiff] (1411ms) ([facility]ITALP-[id number]:WORKSRV2) 07/04/2023 7:29:06 PM Conversion Record [RFPDA51.tmp.PRT] Type: application/postscript G3 to TIFF #1: Success [image/g3] (92ms) GhostScript TIFF #1: Success [image/tiff] (359ms) ([id number]:WORKSRV2) 07/04/2023 7:28:56 PM Origin Record Created by [...] or WORSE than normal Protocols used: Breathing Vzpsujcequ-LPERN-QQ documented in this [facility]04-22-2024 Telephone encounter Note* Telephone Encounter - [...] or WORSE than normal Protocols used: Breathing Rqnzxvjbft-VEQLE-SG [facility] [id number] Hospital Discharge instructions Additional Instructions Stop taking the clindamycin and start taking Augmentin instead. Follow-up with your dentist on Tuesday. Return to emergency room with any worsening symptoms or you have difficulty swallowing.[facility] Work Phone: [phone]) 121-942902-14-2022 NoteHNO ID: [id number] Author: Vandana Becerra MD Service: Hospital Medicine Author Type: Resident Type: Plan of Care Filed: 04/26/2021 10:10 PM Note Text: Patient states she has her son in a car accident and has to leave AMA. Patient understands the risks of leaving AMA including worsening shortness of breath, heart failure and . She still wants to leave AMA. Patient has capacity. Vandana Becerra MDWhitinsville [id number] NoteHNO ID: [id number] Author: Vandana Becerra MD Service: Hospital Medicine Author Type: Resident Type: Plan of Care Filed: 04/26/2021 8:00 PM Note Text: Chart reviewed. ACS unlikely. Will give one dose ibuprofen for the pleuritic chest pain (Has h/o abnormal uterine bleed, however had ablation; no history of GI bleed.) Vandana Becerra MDWhitinsville HospitalEoblwsmm08-34-7438 NoteHNO ID: [id number] Author: Aj Mullins MD Service: Hospital Medicine Author Type: Physician Type: Progress Notes Filed: 04/26/2021 3:41 PM Note Text: DEPARTMENT OF HOSPITAL MEDICINE PROGRESS NOTE SERVICE DATE: 04/26/2021 SERVICE TIME: 3:30 PM Hospital Medicine/Primary Attending: Aj Mullins MD NIGHT AND WEEKEND COVERAGE: [place] COVERAGE:TEAM 2: [id number], please call Team 2 pager [phone]. [id number], please call [facility] Night Coverage pager ([phone]) for Teams 1, 2, AND 3 Subjective [...] 6 hrs PRN Unprovoked PE Occurred in 2016 She was started on Rivaroxaban at that [...] -- 04/25/21 0830 activity - mobilize patient (ks,oh) VTE Prophylaxis: on AC Disposition: Home Plan of care discussed with: Patient, RN and Consultants: cardiology dr. Zaragoza and Francisco TROY SIGNATURE: Aj Mullins MD PATIENT NAME: Michelle Mitchell DATE: April 26, 2021 TIME: 3:30 PM etx [id number] [id number] NoteHNO ID: [id number] Author: Taisha Limon shellfish weigher Service: ? Author Type: Morning Caregiver Type: Procedures Filed: 04/25/2021 2:42 PM Note Text: [employer] pacer interrogation done on 04/25/2021 @ [address] [place] [address] notified to call for report.Whitinsville HospitalNmohtast02-37-6473 Influenza virus A and B RNA and SARS-CoV-2 (COVID-19) N gene panel BIMAL+probe (Resp)COVID 19 RESULT: SARS-CoV-2 (Agent of COVID-19) Not Detected by PCR. INFLUENZA A PCR: Negative for Influenza A by RT-PCR INFLUENZA B PCR: Negative for Influenza B by RT-PCRNorthern Light A.R. Gould HospitalComment on above: Performed By: #### [id number] #### [facility] CLIA [id number] [address] [place], [place] [id number] [place] OF AMERICAConsult note Author Radu Allen [facility] Note Date/Time November 23, 2024 3:01pm [facility] Medical Records Department [address] [place] [address] Anesthesia Postop Eval I 11/23/24 1500 MR#: [id number] Acct: [id number] Name: MICHELLE MITCHELL Rep #:[id number] : 1980 44 From: Radu Allen PCP: Dr. Dex Wilkinson MD Status:R EG SDC Y Race: C Location: [place] [address] Anesthesia: Postop Eval I Current Vital Signs [...] document: Postop Eval 1 completed: Yes 11/23/24 1501 <Electronically signed by Radu Allen > Date _ Radu Samaniegoignfior Signature: Date CC: ~ Signed [facility] Work Phone: Consult note Author Willian Munoz [facility] Note Date/Time November 23, 2024 3:57pm [facility] Medical Records Department [address] [place] [address] Anesthesia Postop Eval II 11/23/24 1545 MR#: [id number] Acct: [id number] Name: MICHELLE MITCHELL Rep #:[id number] : 1980 44 From: Willian Munoz MD PCP: Dr. Dex Wilkinson MD Status:R EG [facility] Y Race: C Location: [place] [address] Anesthesia Postop Eval I Sum Postop Eval [...] Level: 0 nausea: No Vomiting: No 11/23/24 1545 <Electronically signed by Willian Munoz MD> Date _ Willian Munoz MD Cosigner Signature: Date CC: ~ Signed [facility] Work Phone: Discharge summary Author Willian Ovalles [facility] Note Date/Time July 24, 2024 8:43a m [facility] Medical Records Department [address] [place] [address] Discharge Summary 07/24/24 0839 MR#: [id number] Acct: [id number] Name: ALBAMICHELLE AWAD Angelo Rep #:[id number] 8 : 1980 43 From: Wililan Ovalles DO PCP: Dr. Dex Wilkinson MD Status:A DM IN Location: [place] [address] Providers Date of Admission: 07/21/24 Primary Care Physician: Dr. Dex Wilkinson MD Consultations 07/21/24 00:48 Consult: Cardiology Routine Consulting Provider: [facility] Reason for Consult: AE CHF, Elevated Troponin and Near Syncope with Hypertrophic CM EMERGENT Consult: No MD Notified: Yes Date Notified: 07/21/24 Time Notified: 06:52 Method of Notification: Text Method of Consult:: In-Person 07/23/24 08:42 Consult: Gastroenterology Routine Consulting Provider: [facility] Reason for Consult: gastritis. clearance for [...] on following up with Dr. Aguilar at [facility], CTS at [facility] that specialized in cardiac transplantation. [...] heart transplant. So that is the reason [facility] was selected as a facility for transfer. [...] Care Hospital Charges/Coding Visit Charges Inpatient E&M: 53073 Disch Hosp >30min 07/24/24 0843 <Electronically signed by Willian Ovalles DO> Cosigner Signature (if applicable): CC: Dr. Willian Ovalles DO; Dr. Dex Wilkinson MD~ Signed [facility] Work Phone: Discharge summary Author Gage Jiménezgett [facility] Note Date/Time August 11, 2024 1:39p m [facility] Medical Records Department [address] [place] [address] Emergency Department Summary 08/11/24 MR#: [id number] Acct: [id number] Name: MICHELLE MITCHELL Rep #:[id number] 6 : 1980 43 From: Gage rush [...] intact Psych: Cooperative, appropriate mood and affect [facility] Medical History (Updated 08/11/24 @ 13:[address] Gage Sharma, ) Hypertension Severe pulmonary hypertension History of hypertrophic cardiomyopathy Acute systolic congestive heart failure, NYHA class 3 Leukocytosis Cancer History of steroid therapy Easy bruising Migraine headache History of hiatal hernia History of ulceration History of IBS Abdominal bloating Stomach pain Nausea & vomiting Shortness of breath on exertion Smoker History of echocardiogram Chest pain Pulmonary embolism Endometrial cancer Cervical cancer shelter current use of 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 Ovarian cancer GERD [...] 80.2 H Lymph % (Auto) 11.4 L [place] % (Auto) 4.9 Eos % (Auto) 1.9 [...] Sl. Cloudy Urine pH 7.0 Ur Specific [place] 1.010 Urine Protein 15 H Urine Glucose [...] Colonic diverticulosis without acute diverticulitis. Reading Location: [facility] Discharge Plan Triage Chief Complaint: Flank Pain [...] PM given you received Toradol. Print Language: Armenian Disposition Disposition: Home, Self Care What to do if you have Problems For any increased pain, shortness of breath, bleeding, nausea or vomiting, chestpain, or any unexpected problems, contact your Primary Care Provider. Call [facility] ([phone]) or report to the closest Emergency Room. Call 911 if necessary. 08/11/24 1339 <Electronically signed by Gage Sharma DO> Cosigner Signature (if applicable): CC: Dr. Dex Wilkinson MD ~ Signed [facility] Work Phone: Discharge summary Author Emerson Sierra [facility] Note Date/Time September 14, 2024 11:02 am [facility] Medical Records Department [address] [place] [address] Instructions for Home/Discharge Instructions 09/14/24 1057 MR#: [id number] Acct: [id number] Name: MICHELLE MITCHELL Rep #:[id number] 5 : 1980 43 From: Emerson Arciniega [...] DO; Dr. Dex Wilkinson MD ~ Signed [facility] Work Phone: Discharge summary Author Emerson Sierra [facility] Note Date/Time September 14, 2024 11:05 am [facility] Medical Records Department [address] [place] [address] Discharge Summary 09/14/24 1102 MR#: [id number] Acct: [id number] Name: MICHELLE MITCHELL Rep #:[id number] : 1980 43 From: Emerson Arciniega PCP: Dr. Dex Wilkinson MD Status:A DM KISHA Location: [facility] [id number] Providers Date of Admission: 09/11/24 Date of Discharge: 09/14/24 Primary Care Physician: Dr. Dex Wilkinson MD Consultations 09/12/24 00:20 Consult: Gastroenterology Routine Consulting Provider: [facility] Reason for Consult: Intractable abdominal pain [...] pain. No fever or chills. 1. 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 Dennison. Patient is stated that [...] 83.5 H, Lymph % (Auto) 6.7 L, [place] % (Auto) 8.8, Eos % (Auto) 0.1, [...] Self Care Charges/Coding Visit Charges Inpatient E&M: 97909 Disch Hosp >30min 09/14/24 1105 <Electronically signed by Emerson Sierra MD> Cosigner Signature (if applicable): CC: Dr. Dex Wilkinson MD; Dr. Emerson Sierra MD~ Signed [facility] Work Phone: Evaluation noteNo assessment information available [facility] Work Phone: Evaluation note* Diagnosis [...] echocardiography (MICKI)- Primary documented in this encounter [facility] note* Diagnosis Pre-operative examination- Primary Preoperative examination, [...] examination, unspecified- Primary [facility] Diagnosis Hypertrophic cardiomegaly- Primary Chronic heart failure with preserved ejection fraction (HFpEF) Cardiomyopathy, hypertrophic nonobstructive (Multi) Other primary cardiomyopathies History of pulmonary embolism Personal history of venous thrombosis and embolism Other ascites Atypical chest pain Other chest pain documented in this encounter [facility] Work Phone: Evaluation note* Diagnosis Heart failure, unspecified documented in this encounter [facility] Work Phone: Evaluation note* Diagnosis Acute exacerbation of chronic heart failure- Primary Acute exacerbation of chronic heart failure Systolic congestive heart failure, unspecified HF chronicity Pneumonia of left lower lobe due to infectious organism Other constipation documented in this encounter [facility] Work Phone: Evaluation note* Diagnosis Cardiomyopathy, hypertrophic nonobstructive (Multi) Other primary cardiomyopathies documented in this encounter [facility] Work Phone: Evaluation note* Diagnosis Cardiomyopathy, hypertrophic nonobstructive (Multi) Other primary cardiomyopathies History of pulmonary embolism- Primary Personal history of venous thrombosis and embolism Cardiomyopathy, hypertrophic nonobstructive (Multi) Other primary cardiomyopathies Tobacco use Mild intermittent asthma without complication ([facility]) documented in this encounter [facility] Work Phone: Hospital course Narrative No data available for this section [facility] Discharge instructions Additional Instructions See your dentist as soon as possible.[facility] Work Phone: Hospital Discharge instructions Additional Instructions Return if feeling worse. Follow-up with your doctor if not improving. All your test tonight were unremarkable.[facility] Work Phone: Hospital Discharge instructions Additional Instructions Please follow-up with cardiology secondary to your hypertrophic obstructive cardiomyopathy and return to the ER should you have any further concernsW[facility] Work Phone: Hospital Discharge instructions Additional Instructions You do have some pathology, you do have some ascites, a small right pleural effusion, you need to follow-up outpatient. Return here for worsening symptoms.[facility] Work Phone: Hospital Discharge instructions Additional Instructions Your CT scan showed inflammation of your ileum concerning for inflammatory bowel disease. Please follow-up with gastroenterology to discuss further evaluation of this. Take the prescribed medication as directed to help control symptoms and return to the ER should you have any further concernsWSelect [facility] Work Phone: Hospital Discharge instructions Additional Instructions Follow-up with primary care physician. At this point no clear reason for your pain however suspect it was likely secondary to passed kidney stone. Return back to the ED if symptoms change or worsen. You received a Toradol here in the emergency department. No ibuprofen until 6 PM given you received Toradol.[facility] Work Phone: Hospital Discharge instructionsAdditional Instructions Date of Discharge: 09/14/24W[facility] Work Phone: Hospital Discharge instructionsAmbulatory Orders* CHARGE OPERATOR Location: None Selected [facility] Work Phone: Hospital Discharge instructions* Attachments The following attachments cannot be sent through Care Everywhere. * Heart Failure Discharge Instructions, Adult (Armenian) [facility] Work Phone: Hospital Discharge instructionsAdditional Instructions Thank you for trusting us with your care today! Please take Tylenol (2 pills, 650 mg), ibuprofen (2 pills, 400 mg) every 6 hours as needed for pain and fever control. Please return to the emergency department if your symptoms change or worsen. Please follow with your primary care physician for further outpatient evaluation and management.[facility] Work Phone: Reason for visit Narrative* Auth/Cert (Routine) Specialty Diagnoses / Procedures Referred By Annalisa santana Referred To Contact [facility] INPATIENT Diagnoses Endocarditis Procedures [id number] [place] [address] Phone: tel: Referral ID Status Reason Start Date Expiration Date Visits Re quested Visits Authorized [id number] 1 1 [facility] for visit Narrative* Cardiovascular (Routine) - Authorized Specialty Diagnoses / Procedures Referred By Annalisa santana Referred To Contact Diagnoses Heart failure, unspecified Procedures ECG 12 lead [place] MD [address] [place] [address] Phone: tel: fax: Referral ID Status Reason Start Date Expiration Date V isits Requested Visits Authorized [id number] Authorized 08/23/2024 08/23/2025 1 1 [facility] Work Phone: Summary Purpose Family History No [...] Will No November 02 10:05pm Power of Clinical Trial Data Manager No November 02 10:05pm Advance Directive Response Recorded Date/ Time Living Will No November 13 4:21pm Power of Clinical Trial Data Manager No November 13, 2021 4:21pm Advance Directive Response Recorded Date/ Time Living Will No December 16 10:45pm Power of Clinical Trial Data Manager No December 16 10:45pm Advance Directive Response Recorded Date/ Time Living Will No March 09 9:21am Power of Clinical Trial Data Manager No March 09, 2022 9:21am Advance Directive Response Recorded Date/ Time Living Will No December 25 9:27pm Power of Clinical Trial Data Manager No December 25, 2022 9:27pm Advance Directive Response Recorded Date/ Time Living Will No July 04, 2023 8:21pm Power of Clinical Trial Data Manager No July 03 8:21pm Advance Directive Response Recorded Date/ Time Living Will No October 31 11:40pm Do you have a Healthcare Power of Clinical Trial Data Manager? No November 01, 2023 11:40pm Living Will No May 12, 2024 1:07am Do you have a Healthcare Power of Clinical Trial Data Manager? No May 12, 2024 1:07am Living Will No July 01, 2024 8:41pm Do you have a Healthcare Power of Clinical Trial Data Manager? No July 01, 2024 8:41pm Advance Directive Response Recorded Date/ Time Living Will No October 31 11:40pm Do you have a Healthcare Power of Clinical Trial Data Manager? No November 01, 2023 11:40pm Living Will No May 12, 2024 1:07am Do you have a Healthcare Power of Clinical Trial Data Manager? No May 12, 2024 1:07am Living Will No July 01, 2024 8:41pm Do you have a Healthcare Power of Clinical Trial Data Manager? No July 01, 2024 8:41pm Do you have a Healthcare Power of Clinical Trial Data Manager? No July 03, 2024 1:43pm Do you have a Healthcare Power of Clinical Trial Data Manager? No July 10, 2024 11:58am Do you have a Healthcare Power of Clinical Trial Data Manager? No July 20, 2024 7:24pm Advance Directive Response Recorded Date/ Time Living Will No October 31 11:40pm Do you have a Healthcare Power of Clinical Trial Data Manager? No November 01, 2023 11:40pm Living Will No May 12, 2024 1:07am Do you have a Healthcare Power of Clinical Trial Data Manager? No May 12, 2024 1:07am Living Will No July 01, 2024 8:41pm Do you have a Healthcare Power of Clinical Trial Data Manager? No July 01, 2024 8:41pm Do you have a Healthcare Power of Clinical Trial Data Manager? No July 03, 2024 1:43pm Do you have a Healthcare Power of Clinical Trial Data Manager? No July 10, 2024 11:58am Do you have a Healthcare Power of Clinical Trial Data Manager? No July 21, 2024 1:00am Date Activated [...] Do you have a Healthcare Power of Clinical Trial Data Manager? No May 12, 2024 1:07am Living Will No July 01, 2024 8:41pm Do you have a Healthcare Power of Clinical Trial Data Manager? No July 01, 2024 8:41pm Do you have a Healthcare Power of Clinical Trial Data Manager? No July 03, 2024 1:43pm Do you have a Healthcare Power of Clinical Trial Data Manager? No July 10, 2024 11:58am Do you have a Healthcare Power of Clinical Trial Data Manager? No July 21, 2024 1:00am Advance Directive Response Recorded Date/ Time Living Will No May 12, 2024 1:07am Do you have a Healthcare Power of Clinical Trial Data Manager? No May 12, 2024 1:07am Living Will No July 01, 2024 8:41pm Do you have a Healthcare Power of Clinical Trial Data Manager? No July 01, 2024 8:41pm Do you have a Healthcare Power of Clinical Trial Data Manager? No July 03, 2024 1:43pm Do you have a Healthcare Power of Clinical Trial Data Manager? No July 10, 2024 11:58am Do you have a Healthcare Power of Clinical Trial Data Manager? No July 21, 2024 1:00am Do you have a Healthcare Power of Clinical Trial Data Manager? No August 11, 2024 10:27am Advance Directive Response Recorded Date/ Time Living Will No May 12, 2024 1:07am Do you have a Healthcare Power of Clinical Trial Data Manager? No May 12, 2024 1:07am Living Will No July 01, 2024 8:41pm Do you have a Healthcare Power of Clinical Trial Data Manager? No July 01, 2024 8:41pm Do you have a Healthcare Power of Clinical Trial Data Manager? No July 03, 2024 1:43pm Do you have a Healthcare Power of Clinical Trial Data Manager? No July 10, 2024 11:58am Do you have a Healthcare Power of Clinical Trial Data Manager? No July 21, 2024 1:00am Do you have a Healthcare Power of Clinical Trial Data Manager? No August 11, 2024 10:27am Do you have a Healthcare Power of Clinical Trial Data Manager? No August 20, 2024 3:00pm Advance Directive Response Recorded Date/ Time Living Will No May 12, 2024 1:07am Do you have a Healthcare Power of Clinical Trial Data Manager? No May 12, 2024 1:07am Living Will No July 01, 2024 8:41pm Do you have a Healthcare Power of Clinical Trial Data Manager? No July 01, 2024 8:41pm Do you have a Healthcare Power of Clinical Trial Data Manager? No July 03, 2024 1:43pm Do you have a Healthcare Power of Clinical Trial Data Manager? No July 10, 2024 11:58am Do you have a Healthcare Power of Clinical Trial Data Manager? No July 21, 2024 1:00am Do you have a Healthcare Power of Clinical Trial Data Manager? No August 11, 2024 10:27am Do you have a Healthcare Power of Clinical Trial Data Manager? No August 20, 2024 6:53pm Advance Directive Response Recorded Date/ Time Living Will No July 01, 2024 8:41pm Do you have a Healthcare Power of Clinical Trial Data Manager? No July 01, 2024 8:41pm Do you have a Healthcare Power of Clinical Trial Data Manager? No July 03, 2024 1:43pm Do you have a Healthcare Power of Clinical Trial Data Manager? No July 10, 2024 11:58am Do you have a Healthcare Power of Clinical Trial Data Manager? No July 21, 2024 1:00am Do you have a Healthcare Power of Clinical Trial Data Manager? No August 11, 2024 10:27am Do you have a Healthcare Power of Clinical Trial Data Manager? No August 20, 2024 6:53pm Do you have a Healthcare Power of Clinical Trial Data Manager? No September 11, 2024 9:31pm Advance Directive Response Recorded Date/ Time Living Will No July 01, 2024 8:41pm Do you have a Healthcare Power of Clinical Trial Data Manager? No July 01, 2024 8:41pm Do you have a Healthcare Power of Clinical Trial Data Manager? No July 03, 2024 1:43pm Do you have a Healthcare Power of Clinical Trial Data Manager? No July 10, 2024 11:58am Do you have a Healthcare Power of Clinical Trial Data Manager? No July 21, 2024 1:00am Do you have a Healthcare Power of Clinical Trial Data Manager? No August 11, 2024 10:27am Do you have a Healthcare Power of Clinical Trial Data Manager? No August 20, 2024 6:53pm Do you have a Healthcare Power of Clinical Trial Data Manager? No September 12, 2024 12:29am Date Activated Date Inactivated Comments 09/21/2024 6:55 AM Question Answer Comments Plan of Care: Code Status Discussion Completed Decision Maker: Patient Date Activated Date Inactivated Comments 09/21/2024 6:55 AM Question Answer Comments Plan of Care: Code Status Discussion Completed Decision Maker: Patient Advance Directive Response Recorded Date/ Time Do you have a Healthcare Power of Clinical Trial Data Manager? No August 11, 2024 10:27am Do you have a Healthcare Power of Clinical Trial Data Manager? No August 20, 2024 6:53pm Do you have a Healthcare Power of Clinical Trial Data Manager? No September 12, 2024 12:29am Do you have a Healthcare Power of Clinical Trial Data Manager? No October 24, 2024 9:44am Advance Directive Response Recorded Date/ Time Do you have a Healthcare Power of Clinical Trial Data Manager? No August 11, 2024 10:27am Do you have a Healthcare Power of Clinical Trial Data Manager? No August 20, 2024 6:53pm Do you have a Healthcare Power of Clinical Trial Data Manager? No September 12, 2024 12:29am Do you have a Healthcare Power of Clinical Trial Data Manager? No November 25, 2024 3:18pm Do you have a Healthcare Power of Clinical Trial Data Manager? No October 24, 2024 9:44am Chief Complaint [...] August 08, 2024 8:24a m INT LABS May 28th, 2025 9:26a m INT LABSPEC August 09, 2024 [...] 12:26am ICD (implantable cardioverter-defibrilla tor) in place May 10th, 2025 12:26am Leukocytosis July 21, 2024 12:26 am [...] RUQ PAIN W/ WORSENING LFT'S August 21, 5:18pm RUQ PAIN W/ WORSENING LFT'S August [...] RUQ PAIN W/ WORSENING LFT'S August 21, 5:18pm RUQ PAIN W/ WORSENING LFT'S August [...] 2024 8:24a m GERD (gastroesophageal reflux disease) [facility] 2024 8:24am Elevated liver enzymes August 20, 2024 5: 47pm Abdominal pain August 20, 2024 5:47p m Dilated pancreatic duct August 20, 2024 5 :47pm GERD (gastroesophageal reflux disease) [facility] 20[facility] 5:47pm Elevated lipase September 11, [...] 2024 12:12pm History of biliary stent insertion [facility] 2024 12:12pm S/P ERCP November 23, 2024 12:12pm Chief Complaint Admit Date Test Result August [...] 5am HF October 17, 2024 3:1 7pm Abd pain November 25, 2024 2:41pm Additional Source Comments INFORMATION SOURCE (unrecogn ized section and content) DATE CREATED AUTHOR 08/27/[address] [facility] DATE CREATED AUTHOR AUTHOR'S ORGANIZ ATION 08/29/2017 [facility] DATE CREATED AUTHOR AUTHOR'S ORGANIZ ATION 03/22/2020 [facility] DATE CREATED AUTHOR AUTHOR'S ORGANIZ ATION 03/23/2020 [facility] ical Center DATE CREATED AUTHOR AUTHOR'S ORGANIZ ATION 04/17/2020 [facility] DATE CREATED AUTHOR AUTHOR'S ORGANIZ ATION 11/04/2020 [facility] DATE CREATED AUTHOR AUTHOR'S ORGANIZ ATION 04/28/2021 [facility] DATE CREATED AUTHOR AUTHOR'S ORGANIZ ATION 11/12/2023 [facility] ([place]) DATE CREATED AUTHOR AUTHOR'S ORGANIZ ATION 01/07/2024 [facility] DATE CREATED AUTHOR AUTHOR'S ORGANIZ ATION 07/16/2024 [facility] DATE CREATED AUTHOR AUTHOR'S ORGANIZ ATION 08/12/2024 [facility] DATE CREATED AUTHOR AUTHOR'S ORGANIZ ATION 08/27/2024 [facility] DATE CREATED AUTHOR AUTHOR'S ORGANIZ ATION 09/25/2024 [facility] DATE CREATED AUTHOR AUTHOR'S ORGANIZ ATION 10/14/2024 [facility] DATE CREATED AUTHOR AUTHOR'S ORGANIZ ATION 11/02/[address] [facility] DATE CREATED AUTHOR AUTHOR'S ORGANIZ ATION 11/23/2024 [facility] DATE CREATED AUTHOR AUTHOR'S ORGANIZ ATION 11/27/2024 [facility] Goals (unrecognized section and content) Goals [...] Active Rubin Briggs MD Emergency Provider Active Petroleum Geologist Relationship Specialty Start Date End Date Dex Wilkinson MD [facility] [phone] PCP - General Family Medicine 07/01/24 [...] 2024 End: July 24, 2024 Bogdan Bates PMO PROJECT MANAGER, PMO PROJECT MANAGER-C Other Provider Active Start : July 21, [...] Active Start: July 21, 2024 Bogdan Bates PMO PROJECT MANAGER, PMO PROJECT MANAGER-C Other Provider Active Start : July 21, [...] Active Start: July 21, 2024 Bogdan Bates PMO PROJECT MANAGER, PMO PROJECT MANAGER-C Other Provider Active Start : July 21, [...] Active Start: July 22, 2024 Bogdan Bates PMO PROJECT MANAGER, PMO PROJECT MANAGER-C Other Provider Active Start : July 22, [...] Star t: July 22, 2024 Dr. Augustin oPtts MD Other Provider Active Sta rt: July [...] Active Start: July 22, 2024 Bogdan Bates PMO PROJECT MANAGER, PMO PROJECT MANAGER-C Other Provider Active Start : July 22, [...] Active Start: July 23, 2024 Bogdan Bates PMO PROJECT MANAGER, PMO PROJECT MANAGER-C Other Provider Active Start : July 23, [...] Active Start: July 23, 2024 Bogdan Bates PMO PROJECT MANAGER, PMO PROJECT MANAGER-C Other Provider Active Start : July 23, [...] Umaña , Admit Provider Active Start: July 24, 2024 [...] Active Start: July 24, 2024 Bogdan Bates PMO PROJECT MANAGER, PMO PROJECT MANAGER-C Other Provider Active Start : July 24, 2024 Xochitl Bourne PA, PA Other Provider Active Start: July 24, 2024 MARCIO Lemus Other Provider Active Start: July 24, 2024 Dr. Willian Ovalles DO Attending Provider Active Start: July 24, 2024 Dr. Willian Ovalles DO Other Provider Active Star t: July 24, 2024 Petroleum Geologist Relationship Specialty Start Date End Date Dex Wilkinson MD [address] [address] PCP - General 10/19/06 Asuncion Cheung RNbottle machine operator Coordinator 05/14/14 Petroleum Geologist Relationship Specialty Start Date End Date Dex Wilkinson MD [address] [address] PCP - General 10/19/06 Asuncion Cheung RNbottle machine operator Coordinator 05/14/14 Petroleum Geologist Relationship Specialty Start Date End Date Dex Wilkinson MD [address] [address] PCP - General 10/19/06 Asuncion Cheung RNbottle machine operator Coordinator 05/14/14 Team Status: Active Member Role Status Dates Dr. Dex Wilkinson MD Primary Care Provider Active Start: July 23, 2024 Dr. Willian Colón MD Attending Provider Active S tart: July 23, 2024 Dr. Sergio Umaña , DO Referring Provider Active Start: July 23, 2024 Team Status: Inactive Member Role Status Dates Dr. Dex Wilkinson MD Primary Care Provider Active Start: August 08, 2024 End: August 08, 2024 Dr. Dex Wilkinson MD Referring Provider Active Start: August 08, 2024 End: August 08, 2024 Dr. Quang Myles DO Attending Provider Active Start: August 08, 2024 End: August 08, 2024 Petroleum Geologist Relationship Specialty Start Date End Date Dex Wilkinson MD [address] [phone] PCP - General Family Medicine 07/01/24 Team [...] 11, 2024 End: August 11, 2024 Dr. Gaeg Sharma , DO Emergency Provider Activ e Start: August 11, 2024 End: August 11, 2024 Team Status: Inactive Member Role Status Dates Dr. Dex Wilkinson MD Primary Care Provider Active Start: August 08, 2024 End: August 08, 2024 Dr. Quang Myles , DO Attending Provider Active Start: August 08, 2024 End: August 08, 2024 Dr. Quang Myles , DO Referring Provider Active Start: August 08, 2024 End: August 08, 2024 Petroleum Geologist Relationship Specialty Start Date End Date Dex Wilkinson MD [facility] [phone] PCP - General Family Medicine 08/15/24 Team Status: Inactive Member Role Status Dates Dr. Dex Wilkinson MD Primary Care Provider Active Start: August 09, 2024 End: August 09, 2024 Dr. Quang Myles , Attending Provider Active Start: August 09, 2024 [...] August 20, 2024 Dr. Lopez Larios , DO Admit Provider Active Start: August 20, 2024 Dr. Lopez Larios , DO Attending Provider Active Start: August 20, 2024 Petroleum Geologist Relationship Specialty Start Date End Date Dex Wilkinson MD [address] [phone] PCP - General Family Medicine 08/15/24 Team [...] Start: August 23, 2024 Dr. Lopez Larios , DO Admit Provider Active Start: August 23, [...] Active Start: August 21, 2024 Dr. Lopez Lariso DO Other Provider Active Start: August 21, [...] 2024 End: July 24, 2024 Bogdan Bates PMO PROJECT MANAGER, PMO PROJECT MANAGER-C Other Provider Active Start : July 21, [...] Sta rt: July 21, 2024 Dr. Don Victoira MD Other Provider Active Star t: July [...] Active Start: July 21, 2024 Bogdan Bates PMO PROJECT MANAGER, PMO PROJECT MANAGER-C Other Provider Active Start : July 21, [...] Start : July 21, 2024 Dr. Cleo Huetra MD Other Provider Active Star t: July 21, 2024 Dr. Mercy Bishop MD Other Provider Active St art: July 21, 2024 Dr. Sarita Flores MD Other Provider Active Start: July 21, 2024 Dr. Vincent Hdz MD Other Provider Active S tart: July 21, 2024 Dr. Cliff Car MD Other Provider Active Start: July 21, 2024 Bogdan Bates PMO PROJECT MANAGER, PMO PROJECT MANAGER-C Other Provider Active Start : July 21, [...] Active Start: July 22, 2024 Bogdan Bates PMO PROJECT MANAGER, PMO PROJECT MANAGER-C Other Provider Active Start : July 22, [...] Active Start: July 22, 2024 Bogdan Bates PMO PROJECT MANAGER, PMO PROJECT MANAGER-C Other Provider Active Start : July 22, [...] Active Start: July 23, 2024 Bogdan Bates PMO PROJECT MANAGER, PMO PROJECT MANAGER-C Other Provider Active Start : July 23, [...] Active Start: July 23, 2024 Bogdan Bates PMO PROJECT MANAGER, PMO PROJECT MANAGER-C Other Provider Active Start : July 23, [...] Umaña , Admit Provider Active Start: July 24, 2024 [...] Active Start: July 24, 2024 Bogdan Bates PMO PROJECT MANAGER, PMO PROJECT MANAGER-C Other Provider Active Start : July 24, [...] Provider Active Start: August 24, 2024 Dr. Tyalor Tejeda MD Other Provider Active St art: [...] September 11, 2024 Dr. Sergio Umaña DO Attending Provider Active Start: September 11, 2024 Team Status: Inactive Member Role/Relationship Status Dates Dr. Dex Wilkinson MD Primary Care Provider Active Start: September 11, 2024 End: September 14, 2024 Dr. Gage Klusty-Lynne , DO Emergency Provider Activ e Start: September 11, 2024 End: September 14, 2024 Dr. Sergio Umaña , DO Admit Provider Active Start: September 11, 2024 End: September 14, 2024 Dr. Sergio Umaña , DO Other Provider Active Start: September 11, [...] 12, 2024 Dr. Sergio Umaña , DO Other Provider Active Start: September 12, [...] 12, 2024 Dr. Sergio Umaña , DO Other Provider Active Start: September 12, [...] 13, 2024 Dr. Sergio Umaña , DO Admit [...] September 18, 2024 End: September 18, 2024 Petroleum Geologist Relationship Specialty Start Date End Date Dex Wilkinson MD [address] [phone] PCP - General Family Medicine 08/15/24 Petroleum Geologist Relationship Specialty Start Date End Date Dex Wilkinson MD [address] [phone] PCP - General Family Medicine 08/15/24 Team Status: Active Member Role/Relationship Status Dates Dr. Dex Wilkinson MD Primary Care Provider Active Start: September 12, 2024 Dr. Gage Sharma , Emergency Provider Activ e Start: September 12, 2024 Dr. Sergio Umaña , DO Admit Provider Active Start: September 12, 2024 Dr. Sergio Umaña , DO Other Provider Active Start: September 12, [...] October 17, 2024 End: October 17, 2024 Petroleum Geologist Relationship Specialty Start Date End Date Dxe Wilkinson MD [facility] [phone] PCP - General Family Medicine [...] August 24, 2024 Dr. Lopez Larios , Admit Provider [...] Provider Active St art: November 23, 2024 Team Status: Inactive Member Role/Relationship Status Dates Dr. Dex Wilkinson MD Primary Care Provider Active Start: November 25, 2024 End: November 25, 2024 Dr. Carlos Nair DO Emergency Provider Active Start: November 25, 2024 End: November 25, 2024 Reason for Visit (unrecogniz ed section and content) Reason Onset Date Comments Shortness of Breath 07/04/2023 Reason Onset Date Comments Abdominal Pain 07/01/2024 Reason Comments Spirometry Specialty Diagnoses / Procedures Referred By Contac t Referred To Contact [facility] IN[facility]IENT Diagnoses Endocarditis Procedures [id number] [address] [place] [address] Phone: tel: Referral ID Status Reason Start Date Expiration Date Visits Re quested Visits Authorized [id number] 1 Reason Onset Date Comments Transition Of Care 07/30/2024 TCM Pharmacy- Hospital discharge 07/27/24 Reason Onset Date Comments Back Pain 08/10/2024 Reason Comments Abdominal Pain Pt states she starte d gaining water weight on Saturday, was put Lasix Tuesday, she has gained 10lbs since Tuesday. Mid abd pain worse since this AM. Hx of cardiomyopathy, liver disease, and pancreatitis. Sees [place] in [facility] and was told to come to ED if she does not drop any weight. C/o Sob with activity since yesterday Reason Comments Congestive Heart Failure Specialty Diagnoses / Procedures Referred By Contac t Referred To Contact Pharmacy Diagnoses Cardiomyopathy, hypertrophic nonobstructive (Multi) Radu Kay MD [address] [facility] [address] [place] [address] Phone: tel: fax: Referral ID Status Reason Start Date Expiration Date Visits Requested Visits Authorized [id number] Authorized Specialty Services Required 09/19/2024 09/19/2025 1 1 Source Comments (unrecognize d section and content) In the event this informatio n is protected by the Federal Confidentiality of Alcohol and Drug Abuse Patient Records regulations: The Federal rules restrict any use of the information to criminally investigate or prosecute any alcohol or drug abuse patient.[facility] event this information is protected by the Federal Confidentiality of Alcohol and Drug Abuse Patient Records regulations: The Federal rules restrict any use of the information to criminally investigate or prosecute any alcohol or drug abuse patient.[facility] the event this information is protected by the Federal Confidentiality of Alcohol and Drug Abuse Patient Records regulations: The Federal rules restrict any use of the information to criminally investigate or prosecute any alcohol or drug abuse patient.[facility] the event this information is protected by the Federal Confidentiality of Alcohol and Drug Abuse Patient Records regulations: The Federal rules restrict any use of the information to criminally investigate or prosecute any alcohol or drug abuse patient.[facility] Scheduled Active and Recently Administ ered Medications [...] 2045 (Given - Provider: Anisha Sheldon RN) 08 (Given - Provider: Kaela Trejo RN)2100 (Due) empagliflozin (Jardiance) tablet 10 mg 10 [...] On Tue09/21/24 at 0105, For 1 dose 013 (Given - Provider: Fe Esparza RN) furosemide (Lasix) injection 40 mg 40 mg, intravenous, Every 12 hours, First dose on Tue09/21/24 at 1000 0914 (Given - Provider: Alexa Brown RN)2132 (Given - Provider: Bethany Little RN - Comment: 129/77) 1030 (Given - Provider: Kaela Trejo RN)2047 (Given - Provider: Anisha Sheldon, JAJA) 0952 (Given - Provider: Kaela Trejo, JAJA)2200 (Due) HYDROmorphone (Dilaudid) injection 0.5 mg (COMPLETED) 0.5 mg, intravenous, Once, On Tue09/21/24 at 0000, For 1 dose 0011 (Given - Provider: Fe Esparza, JAJA) HYDROmorphone (Dilaudid) injection 0.5 mg (COMPLETED) 0.5 mg, intravenous, Once, On Tue09/21/24 at 0240, For 1 dose 023 (Given - Provider: Fe Esparza, JAJA) HYDROmorphone (Dilaudid) injection 0.5 mg (COMPLETED) 0.5 mg, intravenous, Once, On 09/22/24 at 2115, For 1 dose 2051 (Given - Provider: Anisha Sheldon, JAJA) iohexol (OMNIPaque) 350 mg iodine/mL solution 68 mL (COMPLETED) 68 mL, intravenous, Once in imaging, Starting on Tue09/21/24 at 0109, For 1 dose 013 (Given - Provider: Asuncion Vilal) ketorolac (Toradol) injection 15 mg (COMPLETED) 15 [...] 0831 (Given - Provider: Kaela Trejo RN) metoprolol succinate XL (Toprol-XL) 24 hr tablet [...] RN) 0604 (Given - Provider: Anisha Sheldon, JAJA) sennosides-docusate sodium (Pia-Colace) 8.6-50 mg per tablet 1 tablet 1 tablet, oral, Nightly, First dose on 09/22/24 at 2100 2046 (Given - Provider: Anisha Sheldon, RN) 2100 (Due) sucralfate (Carafate) tablet 1 g 1 g, oral, 2 times daily, First dose on Tue09/21/24 at 0900, Give on an empty stomach (1 hr before meals, at bedtime). Separate all other meds by at least 2 hours (exception: antacids may be given only 30 minutes apart). 0802 (Given - Provider: Alexa Brown RN)2019 (Given - Provider: Bethany Little, JAJA) 08 (Given - Provider: Kaela Trejo, RN)2045 (Given - Provider: Anisha Sheldon RN) 08 (Given - Provider: Kaela Trejo RN)2100 (Due) PRN Medication Order 09/21/2024 09/22/2024 [...] Estrada RN)0920 (Given - Provider: Alexa Brown RN)1226 (Given - Provider: Eliana Stapleton RN)1656 (Given - Provider: Alexa Brown RN)2018 (Given - Provider: Bethany Little RN) 004 (Given - Provider: Bethany Little RN)0438 (Given [...] BE BASED ON THE PRIMARY CLINICAL RECORDS. [employer] [facility]. provides no warranty or guarantee of the accuracy or completeness of information in this document.
[2024-11-27 23:43] LABS: Pro- Brain NATRIURETIC PEPTIDE 3112 pg/mL (<=450)
[2024-11-27 23:46] LABS: Anion Gap 14 (5-15); BUN 10 mg/dL (4-19); BUN/Creat Ratio 12.7 RATIO (10-20); Calcium,Total 9.3 mg/dL (7.6-11.0); Carbon Dioxide 17.7 mmol/L (21.0-32.0); Chloride 103 mmol/L (98-108); Estimated Creatinine Clearance 77.66 ml/min (50-250); Glucose 121 mg/dL (70-99); Potassium 3.8 mmol/L (3.3-5.1)
[2024-11-27 23:47] VITALS: BP 143/57; PULSE 85; RESP 22; O2SAT 98
[2024-11-27 23:59] VITALS: BP 143/57; PULSE 88; RESP 18; TEMP 36.8; O2SAT 99
[2024-11-28] MEDS: HYDROmorphone 0.5 MG/0.5 ML SYRINGE IV (00:01)
== END 2024-11-28 00:03 | disposition home or self-care (01) ==
PROVIDERS: Emergency Provider Emergency Medicine; PCP Family Medicine; Visit Provider Emergency Medicine
DX: R06.02 Shortness of breath (principal); I11.0 Hypertensive heart disease with heart failure; I50.9 Heart failure, unspecified; I42.2 Other hypertrophic cardiomyopathy; R10.9 Unspecified abdominal pain; F17.210 Nicotine dependence, cigarettes, uncomplicated; G89.4 Chronic pain syndrome; Z86.711 Personal history of pulmonary embolism; Z79.899 Other long term (current) drug therapy; Z95.810 Presence of automatic (implantable) cardiac defibrillator
CPT/HCPCS: 71046; 80048; 83880; 85025; 87631; 93005; 94640; 96374; 99284; A4216

== ENCOUNTER → 2024-12-12 | Outpatient (CLI) | payer OTHER, SELFPAY ==
[2024-12-12 15:56] LABS: AST(SGOT) 33 U/L (<=31); Alanine Aminotransfer ALT/SGPT 28 U/L (<=34); Albumin, Serum 4.6 g/dL (3.5-5.0); Alkaline Phosphatase 141 U/L (35-104); Anion Gap 13 (5-15); BUN 15 mg/dL (4-19); BUN/Creat Ratio 18.0 RATIO (10-20); Calcium,Total 10.0 mg/dL (7.6-11.0); Carbon Dioxide 22.3 mmol/L (21.0-32.0); Chloride 100 mmol/L (98-108); Globulin 3.3 g/dL (2.2-4.2); Glucose 85 mg/dL (70-99); Potassium 4.0 mmol/L (3.3-5.1)
[2024-12-12 16:03] LABS: Hematocrit 46.9 % (37-47); Hemoglobin 15.0 g/dL (12.0-15.0); Immature Granulocytes Count 0.020 X10^3/uL (0.0-0.0); Mean Corp Hgb Conc 32.0 g/dL (32-36); Mean Corpuscular Volume 94.4 fL (81-99); Mean Platelet Vol. 11.1 fl (6.2-12.0); NRBC Flagged by Analyzer 0 % (0-5); Platelet Count 311 K/mm3 (150-450); RBC Distribution Width CV 14.6 % (11.6-14.6); RBC Distribution Width SD 50.4 fl (35.1-43.9); Red Blood Count 4.97 M/mm3 (4.2-5.4); White Blood Count 8.6 K/mm3 (4.4-11.0)
[2024-12-12 16:56] LABS: Amylase 12 U/L (28-100); CRP 3.23 mg/L (0.0-3.0); Lipase 17 U/L (13-75)
== END | disposition home or self-care (01) ==
LOC: LAB 14:51
PROVIDERS: PCP Family Medicine; Referring Provider Internal Medicine Gastroenterology; Visit Provider Internal Medicine Gastroenterology
DX: R74.8 Abnormal levels of other serum enzymes (principal); R10.9 Unspecified abdominal pain; G89.29 Other chronic pain
CPT/HCPCS: 36415; 80053; 82150; 83690; 85025; 85652; 86140

== ENCOUNTER 2024-12-28 08:06 | Observation (INO) | payer OTHER, SELFPAY ==
[2024-12-28] VITALS (8 sets, daily range): BP systolic 121–148; BP diastolic 80–103; PULSE 74–112; RESP 17–21; TEMP 35.4–36.7; O2SAT 98–100; BMI 23.3; BMI 21.4
[2024-12-28 08:26] LABS: Hematocrit 40.6 % (37-47); Hemoglobin 13.2 g/dL (12.0-15.0); Immature Granulocytes Count 0.190 X10^3/uL (0.0-0.0); Mean Corp Hgb Conc 32.5 g/dL (32-36); Mean Corpuscular Volume 94.9 fL (81-99); Mean Platelet Vol. 11.0 fl (6.2-12.0); NRBC Flagged by Analyzer 0 % (0-5); POSITIVE DIFFERENTIAL YES; Platelet Count 264 K/mm3 (150-450); RBC Distribution Width CV 14.1 % (11.6-14.6); RBC Distribution Width SD 48.7 fl (35.1-43.9); Red Blood Count 4.28 M/mm3 (4.2-5.4); White Blood Count 23.2 K/mm3 (4.4-11.0)
[2024-12-28 08:33] LABS: Differential Indicated SCAN CRITERIA MET
[2024-12-28] MEDS: HYDROmorphone 0.5 MG/0.5 ML SYRINGE IV (08:39)
[2024-12-28 08:42] LABS: Troponin T High Sensitivity 18 ng/L (<=14)
[2024-12-28 08:44] LABS: Lipase 33 U/L (13-75); Magnesium 1.7 mg/dL (1.5-2.2); Pro- Brain NATRIURETIC PEPTIDE 6238 pg/mL (<=450)
[2024-12-28 08:49] LABS: Prothrombin Time (Protime)PT. 13.6 SECONDS (11.7-14.9)
[2024-12-28 08:50] LABS: Partial Thromboplast Time 24.1 Seconds (24.1-36.2)
[2024-12-28 08:53] LABS: Anion Gap 14 (5-15); BUN 18 mg/dL (4-19); BUN/Creat Ratio 20.6 RATIO (10-20); Calcium,Total 9.7 mg/dL (7.6-11.0); Carbon Dioxide 18.5 mmol/L (21.0-32.0); Chloride 104 mmol/L (98-108); Estimated Creatinine Clearance 70.51 ml/min (50-250); Glucose 210 mg/dL (70-99); Potassium 4.5 mmol/L (3.3-5.1)
[2024-12-28] MEDS: Lidocaine 2% Viscous15 ML UDC 15 ML PO (10:21)
[2024-12-28] MEDS: Famotidine 200 MG/20 ML MDV 20 MG in 0.9% Normal Saline (Pres. free 8 ML 300 MG IV (10:21)
[2024-12-28 10:42] LABS: Mucous, Urine 0 SEEN /hpf (<or=2+)
[2024-12-28 10:44] LABS: Color, Urine Yellow (Yellow); Glucose, Dipstick 1000 mg/dl (Normal); Ketone-Dipstick Negative (Negative); Leukocyte Esterase-Dipstick Negative /ul (Negative); Nitrite-Dipstick Negative (Negative); Occult Blood-Urine 25 /ul (Negative); Protein-Dipstick 30 mg/dl (Negative); Specific Gravity, Urine 1.010 (1.002-1.030); Urine Bilirubin Dipstick Negative (Negative)
[2024-12-28 10:50] LABS: Red Blood Cells-Urine 0-5 SEEN /hpf (0-5); Squamous Epithelial Cells - UA 0-5 SEEN /hpf (5-10)
[2024-12-28 13:43] LABS: Troponin T High Sens 4 HR 37 ng/L (<=14)
[2024-12-28] MEDS: 0.9% Saline Lock 10 ML Syringe IV (22:19)
[2024-12-29 03:45] VITALS: BP 136/89; PULSE 84; RESP 14; TEMP 36.2; O2SAT 98
[2024-12-29 05:42] LABS: Hematocrit 35.8 % (37-47); Hemoglobin 11.9 g/dL (12.0-15.0); Immature Granulocytes Count 0.060 X10^3/uL (0.0-0.0); Mean Corp Hgb Conc 33.2 g/dL (32-36); Mean Corpuscular Volume 94.5 fL (81-99); Mean Platelet Vol. 10.8 fl (6.2-12.0); NRBC Flagged by Analyzer 0 % (0-5); Platelet Count 234 K/mm3 (150-450); RBC Distribution Width CV 14.5 % (11.6-14.6); RBC Distribution Width SD 50.0 fl (35.1-43.9); Red Blood Count 3.79 M/mm3 (4.2-5.4); White Blood Count 16.3 K/mm3 (4.4-11.0)
[2024-12-29 05:57] LABS: Anion Gap 12 (5-15); BUN 21 mg/dL (4-19); BUN/Creat Ratio 26.6 RATIO (10-20); Calcium,Total 9.4 mg/dL (7.6-11.0); Carbon Dioxide 20.0 mmol/L (21.0-32.0); Chloride 104 mmol/L (98-108); Estimated Creatinine Clearance 77.66 ml/min (50-250); Glucose 96 mg/dL (70-99); Potassium 4.3 mmol/L (3.3-5.1)
[2024-12-29 06:01] LABS: Troponin T High Sensitivity 61 ng/L (<=14)
[2024-12-29 08:15] VITALS: BP 127/96; PULSE 101; RESP 18; TEMP 36.6; O2SAT 98
[2024-12-29 08:23] LABS: Troponin T High Sens 2 HR 57 ng/L (<=14)
[2024-12-29] MEDS: 0.9% Saline Lock 10 ML Syringe IV ×2 (09:52→19:49)
[2024-12-29 09:56] VITALS: PULSE 101
[2024-12-29] MEDS: Metoprolol(XL)Succ 25 MG Tablet PO (09:56)
[2024-12-29 10:13] LABS: Troponin T High Sens 4 HR 48 ng/L (<=14)
[2024-12-29 14:49] VITALS: BP 123/84; PULSE 79; RESP 18; TEMP 36.7; O2SAT 98
[2024-12-29 18:26] LABS: Lipase 16 U/L (13-75)
[2024-12-29] MEDS: HYDROmorphone 0.5 MG/0.5 ML SYRINGE IV (19:49)
[2024-12-29 21:58] VITALS: BP 131/74; PULSE 72; RESP 18; TEMP 36.3; O2SAT 99
[2024-12-30 03:59] VITALS: BP 111/74; PULSE 69; RESP 18; TEMP 36.6; O2SAT 98
[2024-12-30] MEDS: HYDROmorphone 0.5 MG/0.5 ML SYRINGE IV ×4 (04:02→23:26)
[2024-12-30] MEDS: 0.9% Saline Lock 10 ML Syringe IV ×4 (04:03→23:25)
[2024-12-30 08:39] VITALS: BP 114/75; PULSE 67; RESP 18; TEMP 36.2; O2SAT 98
[2024-12-30 08:40] VITALS: PULSE 67
[2024-12-30] MEDS: Metoprolol(XL)Succ 25 MG Tablet PO (08:40)
[2024-12-30 11:10] LABS: Hematocrit 35.5 % (37-47); Hemoglobin 11.7 g/dL (12.0-15.0); Immature Granulocytes Count 0.070 X10^3/uL (0.0-0.0); Mean Corp Hgb Conc 33.0 g/dL (32-36); Mean Corpuscular Volume 94.4 fL (81-99); Mean Platelet Vol. 10.7 fl (6.2-12.0); NRBC Flagged by Analyzer 0 % (0-5); Platelet Count 257 K/mm3 (150-450); RBC Distribution Width CV 14.4 % (11.6-14.6); RBC Distribution Width SD 49.7 fl (35.1-43.9); Red Blood Count 3.76 M/mm3 (4.2-5.4); White Blood Count 9.9 K/mm3 (4.4-11.0)
[2024-12-30] MEDS: Lactobacillis Acidophilus 1 CAP PO ×2 (13:18→21:36)
[2024-12-30] MEDS: Creon 24,000 unit DR Capsule 1 CAP PO ×2 (13:18→16:59)
[2024-12-30] MEDS: Vancomycin 125 MG/5 ML Susp PO.SYRINGE PO ×3 (13:50→23:25)
[2024-12-30 15:11] VITALS: BP 117/72; PULSE 66; RESP 18; TEMP 36.6; O2SAT 99
[2024-12-30 21:34] VITALS: BP 115/60; PULSE 65; RESP 16; TEMP 36.5; O2SAT 98
[2024-12-30 23:30] VITALS: BP 120/76; PULSE 72; RESP 16; TEMP 36.3; O2SAT 98
[2024-12-31 05:30] VITALS: BP 115/61; PULSE 73; RESP 18; TEMP 36.3; O2SAT 99
[2024-12-31] MEDS: Lactobacillis Acidophilus 1 CAP PO ×2 (05:38→13:59)
[2024-12-31] MEDS: 0.9% Saline Lock 10 ML Syringe IV ×2 (05:38→12:02)
[2024-12-31] MEDS: HYDROmorphone 0.5 MG/0.5 ML SYRINGE IV ×2 (05:38→12:02)
[2024-12-31] MEDS: Vancomycin 125 MG/5 ML Susp PO.SYRINGE PO ×2 (05:42→12:08)
[2024-12-31 09:02] VITALS: BP 117/62; PULSE 69; RESP 18; TEMP 36.6; O2SAT 99
[2024-12-31 09:06] VITALS: PULSE 69
[2024-12-31] MEDS: Metoprolol(XL)Succ 25 MG Tablet PO (09:06)
[2024-12-31] MEDS: Creon 24,000 unit DR Capsule 1 CAP PO ×2 (09:06→12:02)
[2024-12-31 12:01] VITALS: BP 119/70; PULSE 56; RESP 18; O2SAT 98
== END 2024-12-31 15:17 | disposition home or self-care (01) ==
LOC: ED 08:34 → PCU 11:42
PROVIDERS: Student in an Organized Health Care Education/Training Program; Admitting Provider Family Medicine; Emergency Provider Emergency Medicine; PCP Family Medicine; Visit Provider Internal Medicine
DX: R07.2 Precordial pain (principal); I27.20 Pulmonary hypertension, unspecified; I42.2 Other hypertrophic cardiomyopathy; A04.72 Enterocolitis due to Clostridium difficile, not specified as recurrent; I10 Essential (primary) hypertension; K21.9 Gastro-esophageal reflux disease without esophagitis; R51.9 Headache, unspecified; G89.29 Other chronic pain; R10.9 Unspecified abdominal pain; F41.9 Anxiety disorder, unspecified; J45.909 Unspecified asthma, uncomplicated; K59.09 Other constipation; G47.00 Insomnia, unspecified; Z79.01 Long term (current) use of 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s; Z79.82 Long term (current) use of aspirin; Z95.810 Presence of automatic (implantable) cardiac defibrillator; Z79.2 Long term (current) use of antibiotics; Z86.711 Personal history of pulmonary embolism; Z87.891 Personal history of nicotine dependence; Z79.891 Long term (current) use of opiate analgesic; Z79.899 Other long term (current) drug therapy; R06.02 Shortness of breath
CPT/HCPCS: 36415; 71275; 80048; 81001; 83605; 83690; 83735; 83880; 84484; 85025; 85610; 85730; 87493; 87506; 87631; 93005; 96365; 96375; 96376; 99221; 99285; Q9967; A4216; G0378; J2405

== ENCOUNTER 2025-01-09 01:16 | Emergency (ER) | payer OTHER, SELFPAY ==
[2025-01-09] VITALS (10 sets, daily range): BP systolic 93–151; BP diastolic 50–79; PULSE 59–191; RESP 14–29; TEMP 36.8–36.9; O2SAT 97–100; BMI 22.4
[2025-01-09] MEDS: 0.9% Normal Saline (1000mL) 1,000 ML 999 ML IV (01:45)
[2025-01-09 01:46] LABS: Hematocrit 42.9 % (37-47); Hemoglobin 13.9 g/dL (12.0-15.0); Immature Granulocytes Count 0.040 X10^3/uL (0.0-0.0); Mean Corp Hgb Conc 32.4 g/dL (32-36); Mean Corpuscular Volume 95.3 fL (81-99); Mean Platelet Vol. 9.7 fl (6.2-12.0); NRBC Flagged by Analyzer 0 % (0-5); Platelet Count 302 K/mm3 (150-450); RBC Distribution Width CV 14.2 % (11.6-14.6); RBC Distribution Width SD 49.5 fl (35.1-43.9); Red Blood Count 4.50 M/mm3 (4.2-5.4); White Blood Count 12.2 K/mm3 (4.4-11.0)
--- NOTE | 2025-01-09 02:00 | RAD_ITS ---
PROCEDURE: RAD/Chest 1 View (Portable)
--- NOTE | 2025-01-09 02:03 | ED.RN ---
Alerted Dr. Wood of HR 200s. Respiratory @ bedside. Verbal order for Cardizem 25mg. Pulled and given by Marquis Arias RN. Placed on D-fib pads
[2025-01-09 02:11] LABS: Anion Gap 11 (5-15); BUN 14 mg/dL (4-19); BUN/Creat Ratio 16.1 RATIO (10-20); Calcium,Total 9.5 mg/dL (7.6-11.0); Carbon Dioxide 23.9 mmol/L (21.0-32.0); Chloride 104 mmol/L (98-108); Estimated Creatinine Clearance 70.51 ml/min (50-250); Glucose 91 mg/dL (70-99); Magnesium 2.0 mg/dL (1.5-2.2); Potassium 3.7 mmol/L (3.3-5.1); Troponin T High Sensitivity 32 ng/L (<=14)
--- NOTE | 2025-01-09 02:41 | ED.RN ---
This RN was notified of the patient's heart rate increasing to the point of the patient's defibrillator firing and lowering her rate. MD notified and at bedside. Medications ordered and administered accordingly. The patient remains on cardiac monitoring, cardiac rhythm added to the patient's chart, and Lifepak placed in the patients room as a precaution.
[2025-01-09] MEDS: HYDROmorphone 0.5 MG/0.5 ML SYRINGE IV (04:00)
[2025-01-09 04:05] LABS: Troponin T High Sens 2 HR 35 ng/L (<=14)
--- NOTE | 2025-01-09 04:13 | EX.ED.DYSGE1 ---
HPI History of Present Illness Chief Complaint: Palpitations Informant: patient, spouse/S.O. and EMS Narrative Narrative: Patient is a 44-year-old female with past medical history of hypertrophic obstructive cardiomyopathy. She states that because of this she has developed heart failure and also has required a defibrillator. She reports that she has had a defibrillator for 15 to 20 years and that it was replaced roughly 5 to 7 years ago. She states she has been doing well and taking her medications as directed. She reports that this evening around midnight she suddenly felt her heart began to race and after the palpitations/tachycardia was persistent she then felt a shock from her defibrillator. She states after this she felt better and then 30 minutes after the initial event she had a second bout of palpitations/heart racing followed by a pacemaker fire. She denies any history of cardiac dysrhythmia. She states she does not use stimulants such as excessive caffeine and she denies any illicit drug. However because her defibrillator has fired twice this evening and she is experience palpitations/tachycardia before each event she presents for evaluation. [facility] Medical History Normal Holter exam Cardiology follow-up encounter History of CHF (congestive heart failure) Leukocytosis Dilated pancreatic duct Hypertension Severe pulmonary hypertension History of hypertrophic cardiomyopathy Acute systolic congestive heart failure, NYHA class 3 Leukocytosis Cancer History of steroid therapy Easy bruising Migraine headache History of hiatal hernia History of ulceration History of IBS Abdominal bloating Stomach pain Nausea & vomiting Shortness of breath on exertion Smoker History of echocardiogram Chest pain Abdominal pain Pulmonary embolism Endometrial cancer 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 Ovarian cancer GERD (gastroesophageal reflux disease) Insomnia Anxiety Collapsed lung History of blood clots Asthma Breast cancer Pacemaker ICD (implantable cardioverter-defibrillator) in place Hypertrophic cardiomyopathy Home Medications ?Medication ?Instructions ?Recorded ?Last Taken ?Type alprazolam 0.5 mg tablet 0.5 mg PO BID ANXIETY 11/13/21 11/24/24 History zolpidem 10 mg tablet 10 mg PO QHS SLEEP 11/13/21 11/24/24 History sucralfate 1 gram tablet (Carafate) 1 g PO BIDCM GERD 07/10/24 11/25/24 History metoprolol succinate 25 mg 25 mg PO QDAY HEART 08/08/24 11/25/24 History tablet,extended release 24 hr pantoprazole 40 mg tablet,delayed 40 mg PO BID GERD 08/11/24 11/25/24 History release spironolactone 25 mg tablet 25 mg PO DAILY WATER PILL 08/20/24 11/25/24 History empagliflozin 10 mg tablet 10 mg PO QDAY 10/12/24 11/25/24 History (Jardiance) furosemide 20 mg tablet (Lasix) 20 mg PO QDAY PRN edema 10/17/24 Unknown History ondansetron 4 mg disintegrating 4 mg PO Q8H PRN PRN Nausea #10 tabs 11/25/24 Unknown Rx tablet varenicline tartrate 0.5 mg (11)-1 1 tab PO BID smoking cessation 11/25/24 12/27/24 History mg (42) tablets in a dose pack L.acidophil,salivari-Bifido 1 cap PO TID #0 caps 12/31/24 Unknown Rx bifidum-Strep thermoph 175 mg capsule wibfpb-ywizpils-vqwdqex 2 cap PO TIDCM 1 month #180 caps 12/31/24 Unknown Rx 24,000-76,000-120,000 unit capsule,delayed rel (Creon) vancomycin 125 mg capsule 125 mg PO Q6H 10 days #40 caps 12/31/24 Unknown Rx (Vancocin) albuterol sulfate 90 mcg/actuation 2 puff inhalation 4X/DAY PRN PRN 01/09/25 Unknown History aerosol inhaler shortness of breath or wheezing Allergy/AdvReac Type Severity Reaction Status Date / Time gabapentin (From Neurontin) Allergy Severe Anaphylaxis Verified 01/09/25 01:17 morphine Allergy Mild Hives Verified 01/09/25 01:17 codeine Allergy Hives Verified 01/09/25 01:17 erythromycin base Allergy PT UNSURE Verified 01/09/25 01:17 OF REACTION Fish Containing Products Allergy Other Verified 01/09/25 01:17 levofloxacin Allergy PT UNSURE Verified 01/09/25 01:17 OF REACTION shellfish derived Allergy Other Verified 01/09/25 01:17 tramadol Allergy Hives Verified 01/09/25 01:17 trimethobenzamide (From Allergy Other Verified 01/09/25 01:17 Tigan) hydrocodone (From Vicodin) AdvReac Other Verified 01/09/25 01:17 metoclopramide (From Reglan) AdvReac Other Verified 01/09/25 01:17 Family History Father Heart disease Idiopathic hypertrophic subaortic stenosis, hypertrophic obstructive cardiomyopathy, congestive heart failure Mother Breast cancer DVT (deep venous thrombosis) Sister Hypertrophic obstructive cardiomyopathy heart transplant at age 34 Cancer Brain, breast, and colon Grandfather Heart disease at age 45 Grandmother CVA (cerebral vascular accident) age 43 Surgical History History of esophagogastroduodenoscopy (EGD) History of ERCP Presence of implantable cardioverter-defibrillator (ICD) History of cardiac catheterization History of oophorectomy History of cervical polypectomy History of colonoscopy History of tubal ligation History of mastectomy History of cholecystectomy Hx of appendectomy Social History household members: spouse and family housing: house current occupational status: employed Smoking Status: Current some day smoker tobacco type: cigarettes how long ago did patient quit smokin months ago alcohol intake: former substance use type: does not use caffeine: Yes ROS ROS ED Constitutional Constitutional ED: Denies chills or fever(s) Eyes Eyes: Denies blurry vision or change in vision ENT ENT ED: Denies sore throat Cardiovascular Cardiovascular: Reports palpitations and racing heartbeat; Denies chest pain Respiratory/Chest Respiratory/Chest: Denies cough or dyspnea Gastrointestinal Gastrointestinal: Denies abdominal pain, diarrhea, nausea or vomiting Genitourinary Genitourinary ED: Denies dysuria Musculoskeletal Musculoskeletal: Denies myalgias Integumentary Denies rash Neurologic Neurologic: Denies headache(s) Psychiatric Psychiatric: Reports anxiety Hematologic/Lymphatic Hematologic/Lymphatic: Denies easy bleeding or easy bruising EXAM Physical Exam Const Vital Signs: 01/09/25 01:18 01/09/25 01:18 01/09/25 01:48 Temperature 98.2 F Temperature Source Oral Pulse Rate 102 H 134 H Respiratory Rate 18 29 H Respiratory Effort Normal Non-Labored Respiratory Pattern Normal Blood Pressure 151/70 H Blood Pressure Mean 97 Pulse Ox 100 100 Oxygen Delivery Method Room Air 01/09/25 01:54 01/09/25 01:55 01/09/25 02:00 Temperature Temperature Source Pulse Rate 184 H 191 H 115 H Respiratory Rate 21 H Respiratory Effort Respiratory Pattern Blood Pressure 133/79 H Blood Pressure Mean 95 Pulse Ox 100 Oxygen Delivery Method 01/09/25 02:30 01/09/25 02:45 01/09/25 03:00 Temperature Temperature Source Pulse Rate 90 Respiratory Rate 15 Respiratory Effort Respiratory Pattern Blood Pressure 122/66 H 115/72 Blood Pressure Mean 82 84 Pulse Ox 99 Oxygen Delivery Method 01/09/25 03:30 Temperature Temperature Source Pulse Rate 69 Respiratory Rate 16 Respiratory Effort Respiratory Pattern Blood Pressure 112/63 Blood Pressure Mean 78 Pulse Ox 98 Oxygen Delivery Method Positive well nourished and well developed General Appearance ED: well developed; Negative for pallor HEENT HEENT Narrative: Normocephalic atraumatic Eyes PERRL and EOMs intact bilaterally General Eye ED: Negative for scleral icterus Neck supple and no JVD Chest Wall Chest Narrative: There is pain with palpation of the mid to left anterior chest wall without bony deformity or crepitance Resp normal respiratory effort and clear to auscultation bilaterally Resp Narrative: No nasal flaring retractions tachypnea or accessory muscle use Cardio regular rate and regular rhythm Rate: other Other Details: Heart is regular rate and rhythm Radial and carotid pulses are equal and symmetric No carotid bruit noted GI normal to inspection, nondistended, normoactive bowel sounds, non-tender, non-distended and no masses GI Narrative: No voluntary guarding or rigidity or pulsatile mass Auscultation: normoactive bowel sounds Palpation: soft Extremity normal to inspection Extremity Narrative: No asymmetric edema no pitting edema negative Homans' sign bilaterally Neuro oriented x3, CN's II-XII intact bilaterally and no sensory deficits noted Sensorium / Orientation: alert Motor Exam: strength 5/5 throughout Psych Mood & Affect: anxious Skin no rashes or lesions noted General Skin Exam: Negative for jaundice or pallor MDM MDM MDM Narrative Medical decision making narrative: Patient arrived to the ER mildly hypertensive but overall stable vitals. She reported that her defibrillator had fired twice this evening after an episode of palpitations/tachycardia. She denies any known history of cardiac dysrhythmia. An EKG was obtained upon arrival which showed normal sinus rhythm without dysrhythmia or ischemic changes. In order to assess for potential cause of her palpitations and defibrillator firing such as acute blood loss anemia acute kidney injury or electrolyte abnormality or thyroid dysfunction basic labs were obtained. A chest x-ray was ordered to assess for potential lung pathology or malfunction or migration of the defibrillator leads. Chest x-ray revealed no acute finding. Labs revealed no clinically significant changes either. The patient was resting in the ER when she suddenly began to feel her heart race. Her heart rate got up to approximate 180 to 200 bpm. At that time a repeat EKG was obtained which showed atrial fibrillation with rapid ventricular response. The patient then had a spontaneous firing of her defibrillator after she remained in that heart rhythm/rate for over 30 seconds. After this she returned to normal sinus rhythm indicating a proper/acceptable discharge of the defibrillator. Based on the patient's history of hypertrophic obstructive cardiomyopathy and heart failure I discussed the case with the mirror silverer on-call Dr. Clay. At this time he recommends providing metoprolol tartrate at 50 mg twice a day to help keep her heart rate from spiking. He also recommends patient be transferred to a facility with electrophysiology based on these events and her complex medical history. The patient request transfer to as she states she sees a Dr. Pito Cook at this facility. The case was then discussed with transfer line and the patient will be excepted to [facility] by physician Dr. Estefania Hemphill. The patient has remained hemodynamically stable while in the ER and she has had no further bouts of atrial fibrillation with rapid ventricular response and is therefore safe for transfer to their facility for continued monitoring and care History & Record Review Discussion w/independent historian: Patient and Significant other Lab Data Attestation: I reviewed the patient's lab results. Labs: Laboratory Results - last 24 hr 01/09/25 01/09/25 01:34 03:40 WBC 12.2 H RBC 4.50 Hgb 13.9 Hct 42.9 MCV 95.3 MCH 30.9 MCHC 32.4 RDW Std Deviation 49.5 H RDW Coeff of Damon 14.2 Plt Count 302 MPV 9.7 Immature Gran % (Auto) 0.300 Neut % (Auto) 77.9 H Lymph % (Auto) 14.8 L [place] % (Auto) 5.1 Eos % (Auto) 1.3 Baso % (Auto) 0.6 Absolute Neuts (auto) 9.5 H Absolute Lymphs (auto) 1.80 Nucleated RBC % 0 Sodium 138 Potassium 3.7 Chloride 104 Carbon Dioxide 23.9 Anion Gap 11 BUN 14 Creatinine 0.87 Estim Creat Clear Calc 70.51 Est GFR (MDRD) Non-Af 83 BUN/Creatinine Ratio 16.1 Glucose 91 Calcium 9.5 Magnesium 2.0 Troponin T High Sens 32 H D Troponin T Hi Sens 2 Hr 35 H TSH 3.270 Radiography Diagnostic Testing: Clinical Impression(s) from Imaging Studies Chest X-Ray 01/09/25 02:00 IMPRESSION: No evidence for acute abnormality. Reading Location: [place] [id number] Chest x-ray as interpreted by the emergency medicine physician reveals cardiac defibrillator to be in place without migration or fracture of the wires as well as no acute infiltrate pneumothorax or pleural effusion Management Discussion w/another healthcare provider: Steel Chipper Discharge Plan Triage Chief Complaint: Palpitations ED Provider: Babar Wood Dx/Rx/DC Orders Clinical Impression: Paroxysmal atrial fibrillation with rapid ventricular response, Hypertrophic obstructive cardiomyopathy (HOCM), Congestive heart failure (CHF), Defibrillator discharge Prescriptions: No Action metoprolol succinate 25 mg tablet extended release 24 hr 25 mg PO QDAY Jardiance 10 mg tablet 10 mg PO QDAY furosemide [Lasix] 20 mg tablet 20 mg PO QDAY PRN (Reason: edema) Patient Comments: takes only as needed if weight gain is more than 5lbs in 3 days alprazolam 0.5 mg tablet 0.5 mg PO BID Patient Comments: TAKE 1 TABLET BY MOUTH TWICE DAILY zolpidem 10 mg tablet 10 mg PO QHS sucralfate [Carafate] 1 gram tablet 1 g PO BIDCM pantoprazole 40 mg tablet,delayed release (DR/EC) 40 mg PO BID spironolactone 25 mg tablet 25 mg PO DAILY Patient Comments: takes when your water weight is less than 5lbs for week varenicline tartrate 0.5 mg (11)- 1 mg (42) tablets,dose pack 1 tab PO BID ondansetron 4 mg tablet,disintegrating 4 mg PO Q8H PRN PRN (Reason: Nausea) Qty: 10 0RF L.acidoph,saliva-B.bif-S.therm 175 mg Capsule 1 cap PO TID Qty: 0 0RF Rx Instructions: For 2 weeks Creon 24,000-76,000 -120,000 unit Capsule,Delayed Release(Dr/Ec) 2 cap PO TIDCM 30 Days Qty: 180 0RF vancomycin [Vancocin] 125 mg capsule 125 mg PO Q6H 10 Days Qty: 40 0RF albuterol sulfate 90 mcg/actuation HFA aerosol inhaler 2 puff INHALATION 4X/DAY PRN PRN (Reason: shortness of breath or wheezing) Primary Care Provider: Dex Wilkinson Referrals: Dex Wilkinson MD [Primary Care Provider, Family Practice] Print Language: Frisian Disposition Disposition: Acute Care Hospital Discharge Location: [facility]
== END 2025-01-09 04:50 | disposition short-term general hospital (02) ==
PROVIDERS: Emergency Provider Emergency Medicine; PCP Family Medicine; Visit Provider Emergency Medicine
DX: R00.2 Palpitations (principal); I11.0 Hypertensive heart disease with heart failure; I50.21 Acute systolic (congestive) heart failure; I48.0 Paroxysmal atrial fibrillation; I42.1 Obstructive hypertrophic cardiomyopathy; Z95.810 Presence of automatic (implantable) cardiac defibrillator; Z85.43 Personal history of malignant neoplasm of ovary; Z95.0 Presence of cardiac pacemaker; Z85.3 Personal history of malignant neoplasm of breast; F41.9 Anxiety disorder, unspecified; Z79.899 Other long term (current) drug therapy; K21.9 Gastro-esophageal reflux disease without esophagitis; Z98.51 Tubal ligation status; Z90.10 Acquired absence of unspecified breast and nipple; Z90.49 Acquired absence of other specified parts of digestive tract; F17.210 Nicotine dependence, cigarettes, uncomplicated
CPT/HCPCS: 71045; 80048; 83735; 84443; 84484; 85025; 93005; 96361; 96374; 96375; 96376; 99285; A4216; J2405

== ENCOUNTER 2025-01-31 19:48 | Emergency (ER) | payer OTHER, SELFPAY ==
[2025-01-31 19:49] VITALS: BP 125/95; PULSE 63; RESP 18; TEMP 36.9; O2SAT 100
--- NOTE | 2025-01-31 20:26 | RAD_ITS ---
PROCEDURE: CHEST PA AND LATERAL 01/31/2025 REASON FOR EXAM: CHEST PAIN TECHNIQUE: Procedure Code: RADCXR Modality: DX Procedure: CHEST PA AND LATERAL COMPARISON: 01/09/2025 FINDINGS: Devices: Right chest wall dual lead ICD in stable positioning. Lungs/Pleura: Clear. No pneumothorax or pleural effusion. Heart/Mediastinum: Borderline enlarged. No significant vascular congestion. Bones/Soft tissues: Minimal degenerative changes of the spine. Cholecystectomy surgical clips. RAD/Chest PA and Lateral IMPRESSION: No evidence of acute cardiopulmonary disease. Reading Location: [id number]
--- NOTE | 2025-01-31 20:31 | ED.VIS.CHEST ---
HPI History of Present Illness Chief Complaint: Chest Pain Informant: patient Onset/Context/Timing Onset: Today and Hours (Since around noon today. [place] better to and felt worse again.) Activity at onset: gradual Timing: Intermittent Quality: Positive for Dull Location: Substernal Current Severity: Mild Maximum Severity: Mild Worsened By: Nothing Relieved By: Nothing Associated Symptoms: Positive for Dyspnea; Negative for Nausea, Vomiting, Diaphoresis, Cough, Fever, Lightheadedness, Acid Reflux or Palpitations Narrative Narrative: 44-year-old female history of hypertrophic cardiomyopathy on the list for a heart transplant. Has an ICD had a GIST with placed in late December several weeks ago. History of CHF, PE, A-fib on Eliquis. States he does not really feel well. Since he fell, short of breath and dizzy. She has been taking her blood thinner. She denies any hemoptysis. No fever. No cough. No abdominal pain or dysuria. No melena or diarrhea. Prior Similar Symptoms: Yes Recent Illness/Hospitalization: Yes CVD Risk Factors: Negative for Hypertension, Diabetes or Smoking PE Risk Factors: Positive for Prior DVT or PE; Negative for Recent Travel/Surgery, Cancer or OCP + Smoking + >/=35 TAD Risk Factors: Negative for Marfan's Syndrome [facility] Medical History Normal Holter exam Cardiology follow-up encounter History of CHF (congestive heart failure) Leukocytosis Dilated pancreatic duct Hypertension Severe pulmonary hypertension History of hypertrophic cardiomyopathy Acute systolic congestive heart failure, NYHA class 3 Leukocytosis Cancer History of steroid therapy Easy bruising Migraine headache History of hiatal hernia History of ulceration History of IBS Abdominal bloating Stomach pain Nausea & vomiting Shortness of breath on exertion Smoker History of echocardiogram Chest pain Abdominal pain Pulmonary embolism Endometrial cancer Cervical cancer prison current use of 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 Ovarian cancer GERD (gastroesophageal reflux disease) Insomnia Anxiety Collapsed lung History of blood clots Asthma Breast cancer Pacemaker ICD (implantable cardioverter-defibrillator) in place Hypertrophic cardiomyopathy Home Medications Medication Instructions Recorded Last Taken Type alprazolam 0.5 mg tablet 0.5 mg PO BID ANXIETY 11/13/21 11/24/24 History zolpidem 10 mg tablet 10 mg PO QHS SLEEP 11/13/21 11/24/24 History sucralfate 1 gram tablet (Carafate) 1 g PO BIDCM GERD 07/10/24 11/25/24 History metoprolol succinate 25 mg 25 mg PO QDAY HEART 08/08/24 11/25/24 History tablet,extended release 24 hr pantoprazole 40 mg tablet,delayed 40 mg PO BID GERD 08/11/24 11/25/24 History release spironolactone 25 mg tablet 25 mg PO DAILY WATER PILL 08/20/24 11/25/24 History empagliflozin 10 mg tablet 10 mg PO QDAY 10/12/24 11/25/24 History (Jardiance) furosemide 20 mg tablet (Lasix) 20 mg PO QDAY PRN edema 10/17/24 Unknown History ondansetron 4 mg disintegrating 4 mg PO Q8H PRN PRN Nausea #10 tabs 11/25/24 Unknown Rx tablet L.acidophil,salivari-Bifido 1 cap PO TID #0 caps 12/31/24 Unknown Rx bifidum-Strep thermoph 175 mg capsule albuterol sulfate 90 mcg/actuation 2 puff inhalation 4X/DAY PRN PRN 01/09/25 Unknown History aerosol inhaler shortness of breath or wheezing apixaban 5 mg tablet (Eliquis) 5 mg PO BID 01/31/25 Unknown History dofetilide 125 mcg capsule 375 mcg PO Q12.TCU 01/31/25 Unknown History Allergy/AdvReac Type Severity Reaction Status Date / Time gabapentin (From Neurontin) Allergy Severe Anaphylaxis Verified 01/31/25 20:01 morphine Allergy Mild Hives Verified 01/31/25 20:01 codeine Allergy Hives Verified 01/31/25 20:01 erythromycin base Allergy PT UNSURE Verified 01/31/25 20:01 OF REACTION Fish Containing Products Allergy Other Verified 01/31/25 20:01 levofloxacin Allergy PT UNSURE Verified 01/31/25 20:01 OF REACTION shellfish derived Allergy Other Verified 01/31/25 20:01 tramadol Allergy Hives Verified 01/31/25 20:01 trimethobenzamide (From Allergy Other Verified 01/31/25 20:01 Tigan) hydrocodone (From Vicodin) AdvReac Other Verified 01/31/25 20:01 metoclopramide (From Reglan) AdvReac Other Verified 01/31/25 20:01 Family History Father Heart disease Idiopathic hypertrophic subaortic stenosis, hypertrophic obstructive cardiomyopathy, congestive heart failure Mother Breast cancer DVT (deep venous thrombosis) Sister Hypertrophic obstructive cardiomyopathy heart transplant at age 34 Cancer Brain, breast, and colon Grandfather Heart disease at age 45 Grandmother CVA (cerebral vascular accident) age 43 Surgical History History of esophagogastroduodenoscopy (EGD) History of ERCP Presence of implantable cardioverter-defibrillator (ICD) History of cardiac catheterization History of oophorectomy History of cervical polypectomy History of colonoscopy History of tubal ligation History of mastectomy History of cholecystectomy Hx of appendectomy Social History household members: spouse and family housing: house current occupational status: employed Smoking Status: Former smoker how long ago did patient quit smokin months ago alcohol intake: former substance use type: does not use caffeine: Yes ROS ROS ED ROS Narrative Atypical nonexertional chest pain. History of intermittent chronic chest pain. Dyspnea. Constitutional Constitutional ED: Denies chills or fever(s) Eyes Eyes: Reports none ENT ENT ED: Denies ear pain Cardiovascular Cardiovascular: Reports chest pain; Denies palpitations Respiratory/Chest Respiratory/Chest: Reports dyspnea; Denies cough Gastrointestinal Gastrointestinal: Denies abdominal pain Genitourinary Genitourinary ED: Denies dysuria Musculoskeletal Musculoskeletal: Denies arthralgias Integumentary Denies abscess Neurologic Neurologic: Denies headache(s) Psychiatric Psychiatric: Denies depression Endocrine Endocrinology: Denies cold intolerance Hematologic/Lymphatic Hematologic/Lymphatic: Denies easy bleeding Allergic/Immunologic Allergic/Immunologic ED: Denies mouth swelling, tongue swelling or urticaria EXAM Physical Exam Narrative Exam Narrative: Well-appearing 44-year-old female sitting upright in bed vital signs stable afebrile pulse ox 100% on room air no signs of hypoxia. Clinically looks good. H EENT exam pupils round react light. Moist mucous members. Neck nontender no JVD. Lungs clear to auscultation bilaterally. Heart rate about 60 no murmur. Chest wall ribs nontender. Abdomen soft nontender. Moving all 4 extremities. Nontender no edema no cords. Normal strength. Calves nontender. Back nontender. Neurologically she is awake alert. Answer questions following commands. Benign exam. She has an ICD in her right upper chest wall the wound is dry and clean. Looks good. Const Vital Signs: 01/31/25 19:49 01/31/25 20:02 01/31/25 20:25 Temperature 98.4 F Temperature Source Temporal Pulse Rate 63 Respiratory Rate 18 Respiratory Effort Short of Breath Blood Pressure 125/95 H Blood Pressure Mean 105 Pulse Ox 100 Oxygen Delivery Method Room Air Room Air 01/31/25 20:49 01/31/25 22:00 01/31/25 23:00 Temperature 98.4 F 98.4 F 98.5 F Temperature Source Oral Oral Oral Pulse Rate 61 60 60 Respiratory Rate 14 14 16 Respiratory Effort Blood Pressure 115/91 H 113/71 120/79 Blood Pressure Mean 99 85 92 Pulse Ox 100 100 100 Oxygen Delivery Method Room Air Room Air Room Air MDM MDM MDM Narrative Medical decision making narrative: 44-year-old female history of hypertrophic cardiomyopathy with an ICD and pending heart transplant. Says just did not feel well. She has chronic chest pain she states she has had that she is also mildly short of breath. No hemoptysis. No leg pain or swelling. She is on Eliquis has been taking it. She undergo a cardiac workup. Repeat exam around 11:25 PM patient doing well. Should be given some fentanyl for pain and Zofran. She is comfortable being discharged home with outpatient follow-up. is coming to pick her up. Repeat exams unchanged. We went over all of her test results. Clinically she looks well. Her vital signs are stable. History & Record Review Discussion w/independent historian: Patient Lab Data Attestation: I reviewed the patient's lab results. Lab results narrative: CBC unremarkable. White count 8. H&H 14 and 43. Platelets 253. Electrolytes unremarkable. Normal gap of 12. BUN and creatinine are normal. Glucose 92 Initial troponin 21. 2-hour troponin 21. Prior heart enzymes were higher. Chest x-ray and EKG unremarkable. Labs: Laboratory Results - last 24 hr 01/31/25 01/31/25 20:23 22:20 WBC 8.9 RBC 4.54 Hgb 14.3 Hct 43.8 MCV 96.5 MCH 31.5 MCHC 32.6 RDW Std Deviation 46.7 H RDW Coeff of Damon 13.2 Plt Count 253 MPV 10.7 Immature Gran % (Auto) 0.200 Neut % (Auto) 75.3 H Lymph % (Auto) 15.7 L [place] % (Auto) 5.6 Eos % (Auto) 2.3 Baso % (Auto) 0.9 Absolute Neuts (auto) 6.7 Absolute Lymphs (auto) 1.39 Nucleated RBC % 0 Sodium 139 Potassium 4.1 Chloride 105 Carbon Dioxide 21.3 Anion Gap 12 BUN 15 Creatinine 0.95 Estim Creat Clear Calc 8.84 L* Est GFR (MDRD) Non-Af 75 BUN/Creatinine Ratio 16.1 Glucose 92 Calcium 9.4 Troponin T High Sens 21 H D Troponin T Hi Sens 2 Hr 21 H Radiography Chest X-Ray - ED: 2 View, Read by ED Physician, Read by Radiologist, Normal, Heart, Lungs, Mediastinum, Bony Structures, No Acute Disease and Chronic Changes Diagnostic Testing: Clinical Impression(s) from Imaging Studies Chest X-Ray 01/31/25 20:26 IMPRESSION: No evidence of acute cardiopulmonary disease. Reading Location: [facility] Chest x-ray, 2 views, AP lateral, interpreted both myself and the radiologist shows no acute abnormality. Normal cardiac silhouette. Normal lung pandey. Right sided pacemaker defibrillator. No effusions. No failure. Rhythm Strip Rhythm Strip: Atrial paced rhythm. Ectopy: None EKG Initial EKG: Attestation: I personally reviewed and interpreted this EKG as follows: Interpretation: Paced Comments: Atrial paced rhythm. Rate of 60. No acute signs of MD. Discharge Plan Triage Chief Complaint: Chest Pain ED Provider: Tu Horne Dx/Rx/DC Orders Clinical Impression: Chest pain of uncertain etiology, Anxiety, History of cardiomyopathy Instructions: ED Chest Pain, Uncertain Cause Prescriptions: No Action metoprolol succinate 25 mg tablet extended release 24 hr 25 mg PO QDAY Jardiance 10 mg tablet 10 mg PO QDAY furosemide [Lasix] 20 mg tablet 20 mg PO QDAY PRN (Reason: edema) Patient Comments: takes only as needed if weight gain is more than 5lbs in 3 days alprazolam 0.5 mg tablet 0.5 mg PO BID Patient Comments: TAKE 1 TABLET BY MOUTH TWICE DAILY zolpidem 10 mg tablet 10 mg PO QHS sucralfate [Carafate] 1 gram tablet 1 g PO BIDCM pantoprazole 40 mg tablet,delayed release (DR/EC) 40 mg PO BID spironolactone 25 mg tablet 25 mg PO DAILY Patient Comments: takes when your water weight is less than 5lbs for week ondansetron 4 mg tablet,disintegrating 4 mg PO Q8H PRN PRN (Reason: Nausea) Qty: 10 0RF L.acidoph,saliva-B.bif-S.therm 175 mg Capsule 1 cap PO TID Qty: 0 0RF Rx Instructions: For 2 weeks albuterol sulfate 90 mcg/actuation HFA aerosol inhaler 2 puff INHALATION 4X/DAY PRN PRN (Reason: shortness of breath or wheezing) dofetilide 125 mcg capsule 375 mcg PO Q12.TCU Eliquis 5 mg tablet 5 mg PO BID Primary Care Provider: Dex Wilkinson Referrals: Dex Wilkinson MD [Primary Care Provider, Family Practice] - 3-5 Days if not improving Activity Restrictions/Additional Instructions: Your labs, EKG and chest x-ray look good. Follow-up with your primary care provider. If feeling worse return. Print Language: Kosovan Disposition Disposition: Home, Self Care
[2025-01-31 20:33] LABS: Hematocrit 43.8 % (37-47); Hemoglobin 14.3 g/dL (12.0-15.0); Immature Granulocytes Count 0.020 X10^3/uL (0.0-0.0); Mean Corp Hgb Conc 32.6 g/dL (32-36); Mean Corpuscular Volume 96.5 fL (81-99); Mean Platelet Vol. 10.7 fl (6.2-12.0); NRBC Flagged by Analyzer 0 % (0-5); Platelet Count 253 K/mm3 (150-450); RBC Distribution Width CV 13.2 % (11.6-14.6); RBC Distribution Width SD 46.7 fl (35.1-43.9); Red Blood Count 4.54 M/mm3 (4.2-5.4); White Blood Count 8.9 K/mm3 (4.4-11.0)
[2025-01-31 20:49] VITALS: BP 115/91; PULSE 61; RESP 14; TEMP 36.9; O2SAT 100
--- OUTSIDE RECORDS SUMMARY | 2025-01-31 20:50 | XMS RPT_ITS | CCD ---
Author Organization [facility] [employer]PING CENTRE MANAGER [facility] Care Team Providers Care Gasfitter Name Role Phone TABBAA, MOUSAB Unavailable Unavailable TABBAA, MOUSAB Unavailable Unavailable Unavailable Primary Care Provider Unavailfanta WILKINSON MD, DR DEX Dunbar Primary Care Physician DIANA CINTRON, DR FUNEZ Attending UnavailDR DEX Barrow MD Primary Care Unavai Dex Ricardo MD Primary Care Provider Dr. Dex Wilkinson MD Primary Care Provider Dr. Jose Francisco Santamaria MD Attending Provider Dr. Dex Wilkinson MD Referring Provider [phone] Dr. Bimal Cortez MD Attending Provider Dr. Bimal Cortez MD Emergency Provider Dr. Babar Wood DO Emergency Provider Dr. Babar Wood DO Attending Provider Bárbara Mendez Attending Provider Dr. Nabor Frey DO Attending Provider Dr. Nabor Frey DO Emergency Provider Xochitl Cole Attending Provider Dr. Quang Myles DO Attending Provider Dr. Quang Myles DO Other Provider Dr. Carlos Nair DO Emergency Provider Mccormicko DO, Dr. Beauchamp Admit Provider Unavail able de Koby DO, Dr. Beauchamp Attending Provider Unav ailable Korey DO, Dr. Gonzalez Emergency Provider de Koby DO, Dr. Beauhcamp Admit Provider Unavail able de Koby DO, [...] Provider Josep CINTRON, Dr. Coronado Other Provider [facility] PROBATE CLERK-C, Bogdan Pope Other Provider Xochitl Cole Other Provider Grover Alexis Other Provider Dr. Willian Ovalles DO Attending Provider Dr. Willian Ovalles DO Other Provider Obed CINTRON, Dr. Davison Attending Provider Dr. Wlilian Colón MD Attending Provider Dr. Mercy Bishop MD Attending Provider Dex Wilkinson MD Primary Care Provider Skye WILKINSON, [place] Unavailable Unavailable Dr. Dex Wilkinson MD Primary Care Provider Dr. Dex Wilkinson MD Referring Provider Dr. Jose Francisco Santamaria MD Attending Provider de Koby HAMLIN, Dr. Beauchamp Referring Provider Unav lori Wilkinson [...] Esme CINTRON, Dr. Ochoa Other Provider Unavailable Dr. Jose Francisco Santamaria MD Other Provider Deanna CINTRON, Dr. Gallo Other Provider Dario CINTRON, Dr. Elias Other Provider Sandra CINTRON, Dr. Stein Other Provider Wilder CINTRON, Dr. Kaur Other Provider Josep CINTRON, Dr. Coronado Other Provider [facility] PROBATE CLERK-C, Bogdan Pope Other Provider Xochitl Cole Other Provider Grover Alexis Other Provider Josr HAMLIN, Dr. Dorsey Attending Provider Josr HAMLIN, Dr. Dorsey Other Provider Obed CINTRON, Dr. Davison Attending Provider Dr. Willian Colón MD Attending Provider Dr. Sergio Umaña DO Referring Provider Dr. Mercy Johnson MD Attending Provider Dr. Quang Myles DO Referring Provider Dr. Gage Sharma DO Emergency Provider Dex Wilkinson MD Primary Care Provider Edith HAMLIN, Dr. Almonte Attending Provider Dr. Simona Fernandez DO Emergency Provider Ric HAMLIN, Dr. Marroquin Admit Provider Dr. Lopez Larios DO Attending Provider Dr. Cleo Huerta MD Other Provider Dr. Lopez Larios DO Other Provider [phone] Ileana CINTRON, Dr. Taylor Roque Attending Provider Ileana CINTRON, Dr. Taylor Roque Other Provider [facility] Referring Unavail able DEX WILKINSON Primary Care Unavailable CAES FONSECA Attending Unavailable CASE FONSECA Admitting Unavailable Ileana CINTRON, Dr. Taylor Roque Other Provider [phone] Ileana CINTRON, Dr. Taylor Roque Referring Provider Dr. Dex Wilkinson MD Primary Care Provider Dr. Sergio Umaña DO Attending Provider Unav lori Sierra MD, Dr. Norman Attending Provider Rigo CINTRON, Dr. Norman Other Provider Rigo CINTRON, Dr. Norman Referring Provider Sujatha Olea Attending Provider Unavailable Jaja CINTRON, Dr. Kowalski Primary Care Provider Jaja CINTRON, Dr. Kowalski Referring Provider Shameka HAMLIN, Dr. Del Rio Attending Provider de Koby DO, Dr. Beauchamp Admit Provider Unavail able de Koby DO, Dr. Beauchamp Other Provider Unavail able Bárbara Mendez Attending Provider Rosalio CINTRON, Dr. Felton Attending Provider [phone] Dario CINTRON, Dr. Elias Attending Provider Shameka HAMLIN, Dr. Del Rio Other Provider [phone] Korey HAMLIN, Dr. Gonzalez Emergency Provider Chester CINTRON, Rubin Emergency Provider Jaja CINTRON, Dr. Kowalski [facility] Emergency Department Physi kassandra Ric HAMLIN, Dr. Marroquin Admitting Physician Ric HAMLIN, Dr. Marroquin Nurse Practitioner Ileana CINTRON, Dr. Taylor Roque Attending Physician Ileana CINTRON, Dr. Taylor Roque Nurse Practitioner Shameka HAMLIN, Dr. Del Rio Attending Physician Shameka HAMLIN, Dr. Del Rio Referring Provider RukhsanaLynne HAMLIN, Dr. Almonte [facility] Phys[facility] de Koby HAMLIN, Dr. Beauchamp Admitting Physician Elvira vailable Umaña DO, Dr. Beauchamp Nurse Practitioner Gunjan Sierra MD, Dr. Norman Attending Physician Rigo CINTRON, Dr. Norman Nurse Practitioner Jaja CINTRON, Dr. Kowalski Referring Provider Bárbara Mendez Attending Physician Rosalio CINTRON, Dr. Felton Attending Physician Sujatha Olea Attending Physician Unavailable Dario CINTRON, Dr. Elias Attending Physician Shameka HAMLIN, Dr. Del Rio Nurse Practitioner Korey HAMLIN, Dr. Gonzalez Attending Physician Dr. Carlos Nair DO Emergency Department Physi kassandra Chester CINTRON, Rubin Attending Physician Rubin Briggs MD Emergency Department Physician Ileana CINTRON, Dr. Taylor Roque Nurse Practitioner Ileana CINTRON, Dr. Taylor oRque Referring Provider Shameka HAMLIN, Dr. Del Rio Attending Physician Dex Wilkinson MD Primary Care Provider [phone] DEEPIKA PAREKH Referring Unavailable MARVA DAMON Attending Unavailable WILKINSON, DEX B Primary Care Unavailable WILKINSON, DEX B Attending Unavailable JAJA, DEX B Admitting Unavailable LUIS MIGUEL ALFRED Consulting Unavaila ble WILKINSON, DEX B Primary Care Unavailable WILKINSON, DEX B Admitting Unavailable SERGIO WHITE Consulting Unavailable WILKINSON, DEX B Primary Care Unavailable WILKINSON, DEX B Attending Unavailable WILKINSON, DEX B Admitting Unavailable WILKINSON, DEX B Primary Care Unavailable WILKINSON, DEX B Attending Unavailable WILKINSON, DEX B Primary Care Unavailable EL LUCIA, BOO Admitting Unavailable NIKKO, HAFIZ A Attending Unavailable JAJA, DEX B Primary Care Unavailable EL LUCIA, BOO Admitting Unavailable RA, GINETTEA Attending Unavailable DEEPIKA MAN Attending UnavailRADU Lizarraga Referring Unavailable WILKINSON, DEX B Primary Care Unavailable NIKKO, HAFIZ A Admitting Unavailable NIKKO, HAFIZ A Attending Unavailable JAJA, DEX B Primary Care Unavailable WILKINSON, DEX B Primary Care Unavailable Jaja CINTRON, Dr. Kowalski Primary Care Physician Shameka HAMLIN, Dr. Del Rio Attending Physician Dr. Quang Myles DO Referring Provider Bang HAMLIN, Dr. Pineda Emergency Department Physici an Dejon CINTRON, Dr. Carlos Soni Admitting Physician Dejon CINTRON, Dr. Carlos Soni Nurse Practitioner Dejon CINTRON, Dr. Carlos Soni Attending Physician Rosalio CINTRON, Dr. Felton Nurse Practitioner RADU KAY Attending Unavailable DEX WILKINSON Primary Care Unavailable RADU KAY Referring Unavailable WILKINSON, DEX B Primary Care Unavailable Evita'RADU GAITAN Attending Unavailable DEX WILKINSON Primary Care Unavailable ALI, NASSER Y Admitting Unavailable WILKINSON, DEX Dunbar Primary Care Unavailable HOME DRISCOLL Attending Unavailable AYAN PACE Consulting Unavailable ROJAS, THEODORE Admitting Unavailable ROJAS, THEODORE Attending Unavailable DEX WILKINSON Primary Care Unavailable ROJAS, THEODORE Referring Unavailable WILKINSON, DEX B Primary Care Unavailable ROJAS, THEODORE Referring Unavailable DEX WILKINSON Primary Care Unavailable Jaja CINTRON, Dr. Kowalski Primary Care Physician Rosalio CINTRON, Dr. Felton Attending Physician Dr. Dex Wilkinson MD Referring Provider Sujatha Olea Attending Physician Unavailable Dario CINTRON, Dr. Elias Attending Physician [phone] Dr. Quang Myles DO Attending Physician [phone] Shameka HAMLIN, Dr. Del Rio Nurse Practitioner Dr. Carlos Nair DO Attending Physician Dr. Carlos Nair DO Emergency Department Physi kassandra Rubin Briggs MD Attending Physician Rubin Briggs MD Emergency Department Physician Dr. Quang Myles DO Referring Provider Dr. Edwin Cuenca DO Emergency Department Physici an Dejon CINTRON, Dr. Carlos Soni Admitting Physician Dejon CINTRON, Dr. Carlos Soni Nurse Practitioner Rigo CINTRON, Dr. Norman Attending Physician Dejon CINTRON, Dr. Carlos Soni Attending Physician Rigo CINTRON, Dr. Norman Nurse Practitioner Rosalio CINTRON, Dr. Felton Nurse Practitioner Dr. Babar Wood DO Emergency Department Physic elvia Quang Myles Attending Unavailable Quang Myles Referring Unavailable Wilkinson, Dex Primary Care Unavailable Wilkinson, Dex Primary Care Unavailable Breann Loera Attending Unavailable Wilkinson, Dex Referring Unavailable Sergio Umaña Referring Unavailable Wilkinson, Dex Primary Care Unavailable Willian Colón Attending Unavailable Koram, Taylor Mya Attending Unavailable Wilkinson, Dex Primary Care Unavailable Lopez Larios Admitting Unavailable Lopez Larios Consulting Unavailable Koram, Taylor Mya Consulting Unavailable Wilkinson, Dex Primary Care Unavailable Nabor Frey Attending Unavailable Wilkinson, Dex Primary Care Unavailable Bárbara Ureña Attending Unavailable Wilkinson, Dex Referring Unavailable Rosalio, Jose Francisco Attending Unavailable Wilkinson, Dex Primary Care Unavailable Wilkinson, Dex Referring Unavailable Rosalio, Momence Attending Unavailable Wilkinson, Dex Primary Care Unavailable Quang Myles Attending Unavailable Wilkinson, Dex Primary Care Unavailable Wilkinson, Dex Referring Unavailable Wilkinson, Dex Referring Unavailable Rosalio, Momence Attending Unavailable Wilkinson, Dex Primary Care Unavailable Wilkinson, Dex Primary Care Unavailable Wilkinson, Dex Referring Unavailable Xochitl Cole Attending Unavail able Filemon Subramanian Consulting Unavailable Sergio Umaña Admitting Unavailable Wilkinson, Dex Primary Care Unavailable Obed, Saman Attending Unavailable Chetan Grant Consulting Unavailable Obed Saman Consulting Unavailable Augustin Potts Consulting Unavailable Don Victoria Consulting Unavailable Rosalio, Jose Francisco Consulting Unavailable Cleo Huerta Consulting Unavailable Mercy Bishop Consulting Unavailable Naglatasha, Nagapradee Consulting Unavailabl e Satti, Vincent Consulting Unavailable Josep, Cliff Consulting Unavailable Roof PROBATE CLERK, Bogdan Pope Consulting Unavailable Steffen BUCKLEY, Xochitl Min Consulting Unavail able Grover Guerra Consulting Unavailable Sergio Umaña Consulting Unavailable Willian Ovalles Consulting Unavailable Friend, Quang Attending Unavailable Friend, Quang Referring Unavailable [facility] Primary Care Unavailable Kotsonis, Carlos F Admitting Unavailable Kotsonis, Carlos F Consulting Unavailable [facility] Primary Care Unavailable Rigo, Emerson Attending Unavailable Rigo, Emerson Consulting Unavailable Kotsonis, Carlos F Admitting Unavailable Kotsonis, Carlos F Consulting Unavailable Rigo Emerson Attending Unavailable [facility] Primary Care Unavailable Filemon Subramanian Consulting Unavailable [facility] Primary Care Unavailable Sergio Umaña Admitting Unavailable Willian Ovalles Attending Unavailable Chetan Grant Consulting Unavailable Saman Clay Consulting Unavailable Augustin Potts Consulting Unavailable Don Victoria Consulting Unavailable Rosalio, Momence Consulting Unavailable Cleo Huerta Consulting Unavailable Mercy Bishop Consulting Unavailable Nagajothi, Nagapradee Consulting Unavailabl e Satti, Vincent Consulting Unavailable Josep, Cliff Consulting Unavailable Jana PROBATE CLERK, Bogdan Pope Consulting Unavailable Steffen BUCKLEY, Xochitl Min Consulting Unavail able Grover Guerra Consulting Unavailable Sergio Umaña Consulting Unavailable [facility] Primary Care Unavailable Andreina Santamarial Attending Unavailable [facility] Primary Care Unavailable Bárbara Ureña Attending Unavailable [facility] Referring Unavailable [facility] Primary Care Unavailable [facility] Referring Unavailable Rosalio, Jose Francisco Attending Unavailable [facility] Primary Care Unavailable [place], Dex Referring Unavailable Bárbara Ureña Attending Unavailable Taylor Tejeda Referring Unavailable Friend, Quang Attending Unavailable Lopez Larios Attending Unavailable [facility] Primary Care Unavailable Gage Sharma Attending Unavailformerly [facility] Primary Care Unavailable Rubin Briggs Attending Unavailable [facility] Primary Care Unavailable Carlos Nair Attending Unavailable Friend, Quang Attending Unavailable Friend, Quang Referring Unavailable Wilkinson, Dex Primary Care Unavailable Friend, Quang Referring Unavailable Wilkinson, Dex Primary Care Unavailable Friend, Quang Attending Unavailable Friend, Quang Attending Unavailable Friend, Quang Referring Unavailable Wilkinson, Dex Primary Care Unavailable Wilkinson, Dex Primary Care Unavailable Babar Wood Attending Unavailable Taylor Tejeda Attending Unavailable Wilkinson, Dex Primary Care Unavailable Lopez Larios Admitting Unavailable Lopez Larios Consulting Unavailable Rosalio, Jose Francisco Consulting Unavailable Carlos Ashford Attending Unavailable Friend, Quang Consulting Unavailable Friend, Quang Attending Unavailable Wilkinson, Dex Primary Care Unavailable Wilkinson, Dex Referring Unavailable Friend, Quang Consulting Unavailable Friend, Quang Attending Unavailable Wilkinson, Dex Primary Care Unavailable Wilkinson, Dex Referring Unavailable Willian Ovalles Attending Unavailable Mercy Bishop Attending Unavailable Sergio Umaña Attending Unavailable Sergio Umaña Consulting Unavailable Sergio Umaña Admitting Unavailable Rigo, Emerson Attending Unavailable Wilkinson, Dex Primary Care Unavailable Rigo, Emerson Consulting Unavailable Friend, Quang Attending Unavailable Rigo, Emerson Referring Unavailable Babar Wood Attending Unavailable Wilkinson, Dex Primary Care Unavailable Bimal Cortez Attending Unavailable Wilkinson, Dex Primary Care Unavailable Friend, Quang Attending Unavailable Wilkinson, Dex Primary Care Unavailable Wilkinson, Dex Referring Unavailable Rosalio, Jose Francisco Attending Unavailable Wilkinson, Dex Primary Care Unavailable Wilkinson, Dex Primary Care Unavailable Rosalio, Momence Attending Unavailable Friend, Quang Attending Unavailable Wilkinson, Dex Primary Care Unavailable Wilkinson, Dex Referring Unavailable Wilkinson, Dex Primary Care Unavailable Sujatha Olea Attending Unavailable Wilkinson, Dex Referring Unavailable Wilkinson, Dex Primary Care Unavailable Mercy Bishop Attending Unavailable Wilkinson, Dex Referring Unavailable Sergio Umaña Attending Unavailable Wilkinson, Dex Primary Care Unavailable Friend, Quang Attending Unavailable Wilkinson, Dex Referring Unavailable Wilkinson, Dex Referring Unavailable Sherrill Bryan NP Attending Unavailable Wilkinson, Dex Primary Care Unavailable Wilkinson, Dex Primary Care Unavailable Friend, Quang Attending Unavailable Wilkinson, Dex Referring Unavailable Sergio Umaña Admitting Unavailable Wilkinson, Dex Primary Care Unavailable Sergio Umaña Consulting Unavailable Rigo, Emerson Attending Unavailable Allergies Allergy Classification Reported Allergen(s) Allergy Type Date of Onset Reaction(s) Facility (19 sources) acetaminophen / HYDROcodone; Translations: [HYDROCODONE-ACETAMI NOPHEN] Drug Allergy 01-31-20 07 Shortness of Breath [facility] Repository (20 sources) azithromycin; Translations: [AZITHROMYCIN] Drug Allergy 10-20-19 07 Intolerance, Unknown, Itching, Rash, Nausea/vomitin g [facility] Repository (20 sources) cucumber extract; Translations: [CUCUMBER] Drug Allergy 09-03-19 11 Anaphylaxis [facility] Repository (7 sources) FLUoxetine; Translations: [FLUOXETINE HCL] Drug Allergy 11-08-19 14 Other: See Comments [facility] Repository (20 sources) gabapentin; Translations: [GABAPENTIN] Drug Allergy 05-17-19 12 Mental Status Change [facility] Repository (7 sources) levoFLOXacin; Translations: [LEVOFLOXACIN IN D5W] Drug Allergy 04-05-19 14 Swelling, Itching [facility] Repository (4 sources) LORazepam; Translations: [LORAZEPAM] Drug Allergy 07-11-19 11 AOF, Other [facility] Repository (20 sources) morphine; Translations: [MORPHINE] Drug Allergy 09-15-19 11 [facility] Repository (2 sources) ondansetron; Translations: [ONDANSETRON HCL (PF)] [facility] Shellfish; Translations: [SHELLFISH] Propensity to adverse reactions to food (disorder) 08-21-19 14 Anaphylaxis [facility] Repository (20 sources) traMADol; Translations: [TRAMADOL] Drug Allergy 12-09-19 15 [facility] Repository (1 source) OTHER; Translations: [OTHER] Propensity to adverse reactions (disorder) 09-03-19 11 AOF [facility] Repository (7 sources) TRIMETHOBENZAMIDE-BE NZOCAINE; Translations: [TRIMETHOBENZAMIDE-B ENZOCAINE] Propensity to adverse reactions to drug (disorder) 09-23-19 13 Anaphylaxis [facility] Repository (7 sources) FISH; Translations: [FISH] Propensity to adverse reactions to food (disorder) 08-21-19 14 Anaphylaxis [facility] Repository (20 sources) Codeine; Translations: [codeine] Drug Allergy 11-03-19 Rash [facility] (20 sources) Erythromycin Drug Allergy 11-03-19 PT UNSURE OF REACTION [facility] (1 source) Penicillins Allergy to substance 11-03-19 PT UNSURE OF REACTION [facility] Work Phone: (20 sources) levoFLOXacin; Translations: [LEVOFLOXACIN] Drug Allergy 12-17-19 Unknown [facility] (18 sources) Acetaminophen Drug Allergy 07-02-19 Other [facility] (20 sources) HYDROcodone Drug Allergy 07-02-19 Other [facility] (20 sources) Metoclopramide Drug Allergy 07-02-19 Other [facility] (20 sources) Shellfish; Translations: [SHELLFISH DERIVED] Allergy to substance 07-02-19 Anaphylaxis [facility] (20 sources) trimethobenzamide; Translations: [TRIMETHOBENZAMIDE] Drug Allergy 07-02-19 Anaphylaxis [facility] (20 sources) Fish Containing Products Allergy to substance 07-02-19 Other [facility] (12 sources) FLUoxetine; Translations: [FLUOXETINE] Drug Allergy 08-16-19 Other [facility] Work Phone: (1 source) Acetaminophen Drug Allergy 10-25-19 [facility] Repository (1 source) Codeine Drug Allergy 01-10-20 [facility] Repository (1 source) HYDROcodone Drug Allergy 01-10-20 [facility] Repository (1 source) levoFLOXacin Drug Allergy 01-10-20 [facility] Repository (1 source) Metoclopramide Drug Allergy 01-10-20 [facility] Repository (1 source) trimethobenzamide Drug Allergy 01-10-20 [facility] Repository (1 source) Fish Containing Products Drug allergy (disorder) 01-10-20 [facility] Repository (1 source) erythromycin base Drug allergy (disorder) 01-10-20 [facility] Repository Medications Current Medications Medication Drug Class(es) Dates Sig (Normalized) Sig (Original) acetaminophen 325 mg oral tablet (3 sources) Start: 01-09-2025 take 975 mg by mouth four times daily as needed for pain 975 mg, oral, 4 times daily PRN, pain mild (1-3), first line, headaches, Starting on Tue01/09/25 at 1114, If ordered PRN for pain, nurse is permitted to administer this medication for higher pain scores based on patient preference? Yes Start: 12-27-2024 take 1 tablet by khris th every four hours as needed acetaminophen (Tylenol) tablet 650 mg Start: 09-21-2024 take 1 tablet by khris th every four hours as needed acetaminophen (Tylenol) tablet 650 mg acetaminophen 325 mg / HYDROcodone bitartrate 5 mg oral tablet (1 source) Opioid Agonist Start: 11-13-2021 take 1 tablet by mouth every six hours Hydrocodone-Acetaminophen Active 1 TABLET PO EVERY 6 HOURS 12 3 November 13, 2021 [id number] 200 actuat albuterol 0.09 mg/actuat metered dose inhaler (20 sources) beta2-Adrene rgic Agonist Start: 01-09-2025 Start: 12-27-2024 take 2.5 mg by inhal ation every six hours as needed 2.5 mg, nebulization, Every 6 hours PRN, wheezing, shortness of breath, Starting on Niru 12/27/24 at 0717 Start: 10-12-2024 End: 10-24-2024 Start: 07-26-2023 End: [...] needed for wheezing/shortness of breath. Active ALPRAZolam 0.25 mg oral tablet (20 sources) Benzodiazepine Start: 01-09-2025 take 0.5 mg by mouth twice daily 0.5 mg, oral, 2 times daily, First dose on Tue01/09/25 at 0900 Start: 11-13-2021 End: 08-10-2024 amylase [id number] unt / lipase [id number] unt / protease [id number] unt delayed release oral capsule (4 sources) Start: 12-31-2024 Start: 12-31-2024 Start: 12-31-2024 Start: 12-31-2024 apixaban 5 mg oral tablet (5 sources) Factor Xa Inhibitor Start: 01-11-2025 End: 01-14-2025 take 1 tablet by mouth every twelve hours apixaban (Eliquis) 5 mg tablet Indications: Atrial fib/flutter, transient (Multi) Take 1 tablet (5 mg) by mouth every 12 hours. 60 tablet 01/14/2025 10:30 AM EST 01/14/2025 Active clindamycin 300 mg oral capsule (2 sources) Lincosamide Antibacterial Start: 11-02-2021 take 1 capsule by mouth every six hours Clindamycin Hcl (Cleocin Hcl) 300 mg capsule Active 300 MG PO EVERY 6 HOURS November 02, 2021 12:00am cyclobenzaprine hydrochloride 10 mg oral tablet (1 source) Muscle Relaxant Start: 01-09-2025 take 5 mg by mouth three times daily as needed for muscle spasms 5 mg, oral, 3 times daily PRN, muscle spasms, Starting on Tue01/09/25 at 0656 dicyclomine hydrochloride 10 mg oral capsule (20 sources) Anticholinergic Start: 07-08-2024 End: 09-21-2024 take 1 capsule by mouth three times daily before mealtime dicyclomine (BENTYL) 10 mg capsule Take 1 capsule by mouth three times a day before meals. 90 capsule 07/08/2024 Active Start: 07-03-2024 End: 08-20-2024 docusate sodium 50 mg / sennosides, detention 8.6 mg oral tablet (4 sources) Start: 01-09-2025 take 2 tablets by mouth twice daily as needed for constipation 2 tablet, oral, 2 times daily PRN, constipation, first line, Starting on Tue01/09/25 at 1114 Start: 09-22-2024 End: 09-28-2024 take 1 tablet by mouth once daily at bedtime sennosides-docusate sodium (Pia-Colace) 8.6-50 mg tablet Indications: Other constipation Take 1 tablet by mouth once daily at bedtime for 5 days. 5 tablet 09/23/2024 09/28/2024 Active dofetilide 0.125 mg oral capsule (7 sources) Antiarrhythmic Start: 01-12-2025 End: 01-14-2025 take 3 capsules by mouth every twelve hours dofetilide (Tikosyn) 125 mcg capsule Indications: Atrial fib/flutter, transient (Multi) Take 3 capsules (375 mcg) by mouth every 12 hours. 180 capsule 01/14/2025 10:30 AM EST 01/14/2025 Active Start: 01-10-2025 375 mcg, oral, Every 12 hours scheduled, First dose (after last modification) on Niru 01/10/25 at 2100, QTc monitoring required 2-3 hours after each dofetilide dose during initiation or upward titration. Contact provider if QTc exceeds 500 msec on any check., Prescriber certifies: baseline QTc before dofetilide initiation is Start: 01-10-2025 End: 01-10-2025 250 mcg, oral, Every 12 hour s scheduled, First dose on Niru 01/10/25 at 0900, QTc monitoring required 2-3 hours after each dofetilide dose during initiation or upward titration. Contact provider if QTc exceeds 500 msec on any check., Prescriber certifies: baseline QTc before dofetilide initiation is Start: 01-09-2025 250 mcg, oral, Once, On 01/09/25 at 2000, For 1 dose, QTc monitoring required 2-3 hours after each dofetilide dose during initiation or upward titration. Contact provider if QTc exceeds 500 msec on any check., Prescriber certifies: baseline QTc before dofetilide initiation is doxycycline hyclate 100 mg oral capsule (3 sources) Tetracycline-class Drug Start: 09-23-2024 End: 09-27-2024 take 1 [...] Empiric, Indications: Pneumonia empagliflozin 10 mg oral tablet (20 sources) Sodium-Glucose Cotransporter 2 Inhibitor Start: 01-10-2025 10 mg, oral, Daily, First dose on Niru 01/10/25 at 1400, Please hold this med 72 hours prior to an NPO event in duration of 12 hours or more. Start: 10-12-2024 Start: 09-21-2024 10 mg, oral, D aily, First dose on Tue09/21/24 at 0900, Please hold this med 72 hours prior to an NPO event in duration of 12 hours or more. Start: 08-15-2024 End: 11-21-2025 take 1 tablet by mouth once daily empagliflozin (Jardiance) 10 mg tablet Indications: Cardiomyopathy, hypertrophic nonobstructive (Multi) Take 1 tablet (10 mg) by mouth once daily. 90 tablet 3 11/21/2024 11/21/2025 Active 0.4 ml enoxaparin sodium 100 mg/ml prefilled syringe (1 source) Low Molecular Weight Heparin Start: 09-22-2024 inject 40 mg by subcutaneous injection once daily 40 mg, subcutaneous, Daily, First dose on Tue09/22/24 at 1200 furosemide 20 mg oral tablet (20 sources) Loop Diuretic Start: 12-27-2024 End: 12-27-2024 take 20 mg intravenously once 20 mg, intravenous, Once, On Niru 12/27/24 at 0930, For 1 dose, For doses less than or = 160 mg, give IV push at maximum rate of 40 mg/min For doses greater than 160 mg, dilute in 50 mL and administer at 4 mg/min Start: 10-12-2024 End: 10-17-2024 Start: 09-21-2024 take 40 mg intraveno usly every twelve hours 40 mg, intravenous, Every 12 hours, First dose on Tue09/21/24 at 1000 Start: 09-21-2024 End: 09-21-2024 40 mg, intravenous, Once, On Tue09/21/24 at 0105, For 1 dose Start: 07-26-2023 End: 11-01-2023 Start: 07-26-2023 End: 11-01-2023 1 ml HYDROmorphone hydrochloride 0.2 mg/ml prefilled syringe (7 sources) Opioid Agonist Start: 01-09-2025 0.2 mg, intrav enous, Every 3 hours PRN, pain severe (7-10), first line, Starting on Tue01/09/25 at 0656 Start: 12-27-2024 take 0.5 mg intraven ously every six hours as needed 0.5 mg, intravenous, Every 6 hours PRN, pain severe (7-10), first line, Starting on Niru 12/27/24 at 0029 Start: 09-22-2024 End: 09-22-2024 0.5 mg, intravenous, Once, O n 09/22/24 at 2115, For 1 dose Start: [...] n Tue09/21/24 at 0000, For 1 dose hyoscyamine sulfate 0.125 mg disintegrating oral tablet (18 sources) Start: 09-22-2024 take 1 tablet by [facility] every eight hours as needed Start: 09-18-2024 End: 12-27-2024 hyoscyamine (Anaspaz, Levsin ) 0.125 mg tablet 1 tablet (0.125 mg). 09/18/2024 12/27/2024 Discontinued (Therapy completed) Start: 09-18-2024 End: 10-24-2024 ibuprofen 600 mg oral tablet (1 source) Nonsteroidal Anti-inflammatory Drug Start: 11-13-2021 take 600 mg by mouth every six hours Ibuprofen Active 600 MG PO EVERY 6 HOURS November 13, 2021 12:00am magnesium hydroxide 80 mg/ml oral suspension (2 sources) Start: 12-27-2024 take 30 mL by mouth every twenty-four hours as needed Start: 09-21-2024 take 30 mL by mouth every twen ty-four hours as needed magnesium oxide 400 mg oral tablet (1 source) Start: 09-21-2024 take 1 tablet by mouth once daily 1 tablet (400 mg of magnesium oxide), oral, Daily, First dose on Tue09/21/24 at 0900 melatonin 3 mg oral tablet (1 source) Start: 01-09-2025 take 3 mg by mouth once daily as needed for sleep 3 mg, oral, Nightly PRN, sleep, Starting on Tue01/09/25 at 1114 24 hr metoprolol succinate 25 mg extended release oral tablet (20 sources) beta-Adrenergic Krishan Start: 07-27-2024 End: 11-21-2024 nitroglycerin 0.4 mg sublingual tablet (1 source) Nitrate Vasodilator Start: 12-27-2024 0.4 mg, sublingual, Every 5 min PRN, chest pain, Starting on Tue12/27/24 at 0029, May administer up to 3 doses per episode. ondansetron 4 mg disintegrating oral tablet (20 [...] 26, 2022 1:35am August 16, 2023 11:22am take 1 tablet by khris every four hours as needed ondansetron ODT (Zofran-ODT) 4 mg disintegrating tablet Dissolve 1 tablet (4 mg) in the mouth every 4 hours if needed for nausea or vomiting. Active ondansetron ODT (Zofran-ODT) disintegrating tablet 4 mg (3 sources) Start: 01-09-2025 take 1 tablet by mouth every eight hours as needed ondansetron ODT (Zofran-ODT) disintegrating tablet 4 mg Start: 12-27-2024 take 1 tablet by khris th every eight hours as needed ondansetron ODT (Zofran-ODT) disintegrating tablet 4 mg Start: 09-21-2024 take 1 tablet by khris th every eight hours as needed ondansetron ODT (Zofran-ODT) disintegrating tablet 4 mg oxyCODONE hydrochloride 5 mg oral tablet (20 sources) Opioid Agonist Start: 01-12-2025 End: 01-14-2025 take 1 tablet by mouth every eight hours for pain oxyCODONE (Roxicodone) 5 mg immediate release tablet Indications: Defibrillator discharge Take 1 tablet (5 mg) by mouth every 8 hours if needed for severe pain (7 - 10). 10 tablet 01/14/2025 10:30 AM EST 01/14/2025 Active Start: 09-14-2024 End: 10-17-2024 Start: 08-28-2024 End: 09-04-2024 Start: 08-24-2024 End: 09-11-2024 pantoprazole 40 mg delayed r elease oral tablet (20 sources) Proton Pump Inhibitor Start: 08-11-2024 Start: 07-10-2024 End: 08-11-2024 Start: 07-08-2024 take 1 tablet by khris th twice daily before mealtime, then take 4 tablets by mouth in the evening pantoprazole DR (PROTONIX) 40 mg tablet Take 1 tablet by mouth two times a day before meals at 6 am and 4 pm. 60 tablet 2 07/08/2024 Active polyethylene glycol 3350 50536 mg powder for oral solution (1 source) Osmotic Laxative Start: 01-09-2025 17 g, oral, Daily, First dose on Tue01/09/25 at 0900, Bowel Regimen - for prevention of constipation. spironolactone 25 mg oral tablet (20 sources) Aldosterone Antagonist Start: 01-13-2025 End: 01-14-2025 take 0.5 tablet by mouth once daily spironolactone (Aldactone) 25 mg tablet Indications: HFrEF (heart failure with reduced ejection fraction) (Multi) Take 0.5 tablets (12.5 mg) by mouth once daily. 15 tablet 01/14/2025 10:30 AM EST 01/14/2025 Active Start: 01-11-2025 take 12.5 mg by mout h once daily 12.5 mg, oral, Daily, First dose on 01/11/25 at 1430 Start: 08-20-2024 Start: 08-15-2024 End: 08-15-2025 take 1 tablet by mouth once daily spironolactone (Aldactone) 25 mg tablet Indications: Hypertrophic cardiomegaly , Chronic heart failure with preserved ejection fraction (HFpEF) (Multi) Take 1 tablet (25 mg) by mouth once daily. 30 tablet 11 08/15/2024 01/14/2025 Discontinued (Stop Taking at Discharge) sucralfate 1000 mg oral tablet (20 sources) Aluminum Complex Start: 07-08-2024 vancomycin 125 mg oral capsule (10 sources) Glycopeptide Antibacterial Start: 01-09-2025 End: 01-10-2025 750 mg (rounded from 862.5 mg = 15 mg/kg 57.5 kg), intravenous, at 200 mL/hr, Administer over 45 Minutes, Once, On Niru 01/10/25 at 0915, For 1 dose, premix bag, Dosing of this medication varies based on severity of illness. Does this patient have sepsis or concern for sepsis (probable or documented infection plus systemic manifestations of infection)? No, Suspected Indication (Select all that apply): Medical Prophylaxis, Indications: Medical Prophylaxis Start: 01-09-2025 End: 01-14-2025 take 1 capsule by mouth four times daily vancomycin (Vancocin) 125 mg capsule Indications: C. difficile colitis Take 1 capsule (125 mg) by mouth 4 times a day. 8 capsule 01/14/2025 01/14/2025 Discontinued (Therapy completed) Start: 12-31-2024 Start: 12-31-2024 Start: 12-31-2024 Start: 12-31-2024 End: 01-12-2025 take 1 capsule by mouth four times daily vancomycin (Vancocin) 125 mg capsule Take 1 capsule (125 mg) by mouth 4 times a day. 01/12/2025 Discontinued Varenicline Tartrate (11 sources) Partial Cholinergic Nicotinic Agonist Start: 11-25-2024 Start: 11-21-2024 End: 02-19-2025 varenicline tartrate (Chanti x KENNETH) 0.5 mg (11)- 1 mg (42) tablet Indications: Tobacco use Use as directed on package instructions, try to quit smoking after 1 week. 42 each 1 11/21/2024 02/19/2025 Active zolpidem tartrate 5 mg oral tablet (20 sources) gamma-Aminobutyric Acid-ergic Agonist Start: 01-10-2025 take 10 mg by mouth once daily 10 mg, oral, Nightly, First dose on Niru 01/10/25 at 2100 Start: 12-27-2024 take 10 mg by mouth once daily as needed for sleep 10 mg, oral, Nightly PRN, sleep, Starting on Tue12/27/24 at 0124 Start: 09-21-2024 take 10 mg by mouth once daily as needed for sleep 10 mg, oral, Nightly PRN, sleep, Starting on Tue09/21/24 at 0654 Start: 11-13-2021 (16 sources) Start: 12-31-2024 Start: 11-25-2024 Start: 10-17-2024 End: 11-25-2024 Start: [...] December 26, 2022 August 16, 2023 11:22am amoxicillin 875 mg / clavula mayra 125 mg oral tablet (20 sources) Penicillin-class Antibacterial Start: 11-02-2023 End: 05-12-2024 Start: 11-02-2023 End: 05-12-2024 Amoxicillin-Pot Clavulanate 875-125 mg tablet Discontinued 1 {tbl} PO TWICE A DAY 14 November 02, 2023 12:00am May 12, 2024 1:11am Start: 11-13-2021 take 1 tablet by [facility] every twelve hours Amoxicillin-Pot Clavulanate Active 1 TABLET PO Q12H November 13, 2021 12:00am aspirin 81 mg chewable tablet (1 source) Platelet Aggregation Inhibitor, Nonsteroidal Anti-inflammatory Drug Start: 12-27-2024 End: 12-27-2024 324 mg (rounded from 325 mg), oral, Once, On Niru 12/27/24 at 1045, For 1 dose, Pre-procedural Benzocaine (1 source) Standardized Chemical Allergen Start: 07-25-2024 End: 07-25-2024 TOPICAL, X (OR/PROCEDURE) PRN, Starting on Tue07/25/24 at 1530, Until Tue07/25/24 at 1530, Intraprocedure 168 hr buprenorphine 0.01 mg/hr transdermal system (20 sources) Partial Opioid Agonist Start: 11-27-2024 End: 12-12-2024 Start: 11-25-2024 End: 12-12-2024 Start: 10-17-2024 End: 11-25-2024 End: 12-27-2024 apply 1 dose transdermal route every week buprenorphine (Butrans) 15 mcg/hour patch Place 1 patch on the skin 1 (one) time per week. 12/27/2024 Discontinued (Therapy completed) calcium chloride 0.0014 meq/ml / potassium chloride 0.004 meq/ml / sodium chloride 0.103 meq/ml / sodium lactate 0.028 meq/ml injectable solution (1 source) Start: 01-09-2025 End: 01-09-2025 1,000 mL, intravenous, at 250 mL/hr, Administer over 4 Hours, Once, On Tue01/09/25 at 1300, For 1 dose celecoxib 200 mg oral capsule (20 sources) Nonsteroidal Anti-inflammatory Drug Start: 08-08-2024 End: 08-11-2024 1 ml fentaNYL 0.05 mg/ml injection (1 source) Opioid Agonist Start: 07-25-2024 End: 07-25-2024 INTRAVENOUS, X (OR/PROCEDURE) PRN, Starting on Tue07/25/24 at 1535, Until Tue07/25/24 at 1553, Intraprocedure fluconazole 100 mg oral tablet (6 sources) Azole Antifungal Start: 12-03-2024 End: 12-17-2024 iohexol (OMNIPaque) 350 mg iodine/mL solution 68 mL (1 source) Start: 09-21-2024 End: 09-21-2024 68 mL, intravenous, Once in imaging, Starting on Tue09/21/24 at 0109, For 1 dose 1 ml ketorolac tromethamine 30 mg/ml injection (20 sources) Nonsteroidal Anti-inflammatory Drug, Cyclooxygenase Inhibitor Start: 01-14-2025 End: 01-14-2025 15 mg, intravenous, Once, On 01/14/25 at 1100, For 1 dose Start: 12-27-2024 End: 01-01-2025 take 15 mg intravenously every six hours as needed 15 mg, intravenous, Every 6 hours PRN, pain moderate (4-6), first line, Starting on Niru 12/27/24 at 0911, For 5 days Start: 09-22-2024 End: 09-22-2024 15 mg, intravenous, Once, On 09/22/24 at 1530, For 1 dose Start: 07-03-2024 End: 07-20-2024 lidocaine 50 mg/ml rectal cream (15 sources) Antiarrhythmic, Amide Local Anesthetic Start: 09-13-2024 End: 10-24-2024 Start: 07-25-2024 End: 07-25-2024 X (OR/PROCEDURE) PRN, Starti ng on Tue07/25/24 at 1530, Until Tue07/25/24 at 1530, Intraprocedure 50 ml magnesium sulfate 40 mg/ml injection (2 sources) Start: 01-11-2025 End: 01-11-2025 2 g, intravenous, at 25 mL/h r, Administer over 2 Hours, Once, On Tue01/11/25 at 1145, For 1 dose Start: 01-09-2025 End: 01-09-2025 2 g, intravenous, at 25 mL/h r, Administer over 2 Hours, Once, On Tue01/09/25 at 1300, For 1 dose meloxicam 15 mg oral tablet (20 sources) Nonsteroidal Anti-inflammatory Drug Start: 08-10-2024 End: 09-21-2024 methscopolamine bromide 5 mg oral tablet (20 sources) Anticholinergic Start: 10-26-2023 End: 07-10-2024 methylPREDNISolone 125 mg injection (1 source) Corticosteroid Start: 01-09-2025 End: 01-09-2025 125 mg, intravenous, Once, On Tue01/09/25 at 1600, For 1 dose 5 ml midazolam 1 mg/ml injection (1 source) Benzodiazepine Start: 07-25-2024 End: 07-25-2024 INTRAVENOUS, X (OR/PROCEDURE) PRN, Starting on Tue07/25/24 at 1535, Until Tue07/25/24 at 1553, Intraprocedure microencapsulated potassium chloride 20 meq extended release oral tablet (1 source) Start: 01-09-2025 End: 01-09-2025 20 mEq, oral, Once, On Tue01/09/25 at 1300, For 1 dose, Best given with food and plenty of water to minimize gastric irritation. Do not crush or chew. predniSONE 20 mg oral tablet (20 sources) Start: 07-20-2024 End: 08-11-2024 Start: 07-01-2024 End: 07-10-2024 Start: 07-01-2024 End: 07-10-2024 take 2 tablets by mouth once daily Prednisone 20 mg tablet Discontinued 40 mg PO DAILY 10 July 01, 2024 12:00am July 10, 2024 11:56am psyllium 3400 mg powder for oral suspension (19 sources) Start: 10-12-2024 End: 10-24-2024 Start: 07-08-2024 take 1 dose by mouth twice daily psyllium (METAMUCIL) 3.4 gram packet Take 1 packet by mouth two times a day. 60 packet 5 07/08/2024 Active take 1 dose by mouth once daily as needed psyllium (Metamucil) 3.4 gram packet Take 1 packet by mouth once daily as needed. Active rimegepant 75 mg disintegrat ing oral tablet (20 sources) Start: 07-26-2023 End: 08-16-2023 Start: 07-26-2023 [...] Da te Episodic/Chronic Abdominal pain (20 sources) Abdominal pain; Translations: [Unspecified abdominal pain] Onset: 4 07-03-2024 Episodic Anxiety disorders (20 sources) Anxiety; Translations: [Anxiety disorder, unspecified] Onset: 9 07-26-2023 Chronic Comment on above: ON MED Asthma (20 sources) Asthma; Translations: [Unspecified asthma, uncomplicated] Onset: 5 Resolved: 5 07-26-2023 Chronic Comment on above: PRN INHALER Biliary tract disease (20 sources) Common bile duct calculus; Translations: [Calculus [...] ovary] Onset: 5 07-24-2024 Episodic Cardiac dysrhythmias (14 sources) Paroxysmal ventricular tachycardia; Translations: [Paroxysmal ventricular tachycardia] Onset: 5 07-25-2024 Chronic Cardiac dysrhythmias (5 sources) Palpitations; Translations: [Palpitations] Onset: 0 10-02-2019 Episodic Complication of device; implant or graft (4 sources) Disorder of cardiac pacemaker system; Translations: [Unspecified complication of cardiac and vascular prosthetic device, implant and graft, initial encounter] Onset: 5 07-24-2024 Episodic Conduction disorders (20 sources) Cardiac pacemaker in situ; Translations: [Presence of cardiac pacemaker] Onset: 7 07-26-2023 Chronic Comment on above: [employer]onic Visglenny EAGLE RI [id number] 10/29/2016[employer]onic [id number] right ventricular lead Congestive heart failure; nonhypertensive (20 sources) Heart failure; Translations: [Heart failure, unspecified] Onset: 2 Resolved: 5 07-21-2024 Chronic Coronary atherosclerosis and other heart disease (6 sources) Acute coronary syndrome; Translations: [Acute ischemic heart disease, unspecified] Onset: 5 01-15-2025 Chronic Diseases of white blood cells (20 sources) Leukocytosis; Translations: [Elevated white blood cell count, unspecified] Onset: 1 07-21-2024 Chronic Disorders of teeth [...] or perforation] Onset: Chronic Headache; including migraine (20 sources) Migraine; Translations: [Migraine, unspecified, not intractable, without status migrainosus] 12-25-2021 Chronic Intestinal infection (7 sources) Clostridium difficile colitis; Translations: [Enterocolitis due to Clostridium difficile, not specified as recurrent] Onset: 5 01-12-2025 Episodic Noninfectious gastroenteritis (20 sources) Inflammatory bowel [...] sources) Long-term current use of 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; Translations: [terminal system operator (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) use of 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s] Onset: 5 07-26-2023 Episodic Other aftercare (1 source) Patient encounter status; Translations: [Encounter for therapeutic drug level monitoring] Onset: 5 07-26-2024 Episodic Other aftercare (1 source) terminal system operator (current) use of 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s; Translations: [Current use of technician terminal and repeater anticoagulation] Onset: Episodic Other and ill-defined heart disease (1 source) Hypertrophic cardiomegaly ; Translations: [Cardiomegaly] 08-15-2024 Chronic Other and ill-defined heart disease (2 sources) Cardiomegaly; Translations: [Cardiomegaly] Onset: Chronic Other circulatory disease (20 sources) History of cardiomyopathy; Translations: [Personal history of other diseases of the circulatory system] 07-21-2024 Episodic Other female genital disorders (20 sources) Abnormal uterine bleeding; Translations: [Abnormal uterine and vaginal bleeding, unspecified] 09-18-2024 Chronic Other female genital disorders (1 source) Abnormal uterine and vaginal bleeding, unspecified; Translations: [Abnormal uterine and vaginal bleeding, unspecified] Onset: Chronic Other gastrointestinal disorders (1 source) Irritable bowel syndrome without diarrhea; Translations: [Irritable bowel syndrome, unspecified] Onset: Chronic Other gastrointestinal disorders (20 sources) Diarrhea; Translations: [Diarrhea, unspecified] 08-08-2024 Episodic Other gastrointestinal disorders (1 source) Diarrhea, unspecified; Translations: [Diarrhea, unspecified] Onset: Episodic Other gastrointestinal disorders (1 source) Encounter for fitting and adjustment of other gastrointestinal appliance and device; Translations: [Encounter for fitting and adjustment of other gastrointestinal appliance and device] Onset: Episodic Other liver diseases (1 source) Other specified inflammatory liver diseases; Translations: [Other specified inflammatory liver diseases] Onset: Chronic Other liver diseases (4 sources) Large liver; Translations: [Hepatomegaly, not elsewhere classified] Onset: 5 07-05-2024 Episodic Other liver diseases (20 sources) Elevated liver enzymes level; Translations: [Abnormal levels of other serum enzymes] 08-20-2024 Episodic Other liver diseases (20 sources) High lipase level in serum; Translations: [Abnormal levels of other serum enzymes] 09-12-2024 Episodic Other liver diseases (2 sources) Abnormal levels of other serum enzymes; Translations: [Abnormal levels of other serum enzymes] Onset: 5 Episodic Other lower respiratory disease (7 sources) Dyspnea; Translations: [Shortness of breath] 11-27-2024 Episodic Other lower respiratory disease (1 source) Shortness of breath; Translations: [Shortness of breath] Onset: 5 Episodic Other nervous system disorders (2 sources) Other chronic pain; Translations: [Other chronic pain] Onset: 5 Chronic Other screening for suspected conditions (not mental disorders or infectious disease) (4 sources) Abnormal findings on diagnostic imaging of other specified body structures; Translations: [Nonspecific (abnormal) findings on radiological and other examination of other intrathoracic organs] Onset: 5 05-15-2024 Chronic Pia-; endo-; and myocarditis; cardiomyopathy (except [...] Onset: 5 07-21-2024 Chronic Pulmonary heart disease (18 sources) Pulmonary thromboembolism; Translations: [Other pulmonary embolism [...] (4 sources) or return to ER Unclassified (3 sources) for gynecology evaluation Unclassified (4 sources) SUMMARY Onset: 5 03-09-2021 Unclassified (7 sources) Abnormal uterine bleeding Unclassified (1 source) Transaminitis; Translations: [Transaminitis] Onset: 5 Unclassified (2 sources) Defibrillator firing Onset: 5 Past or Other Problems Problem Classification Problem Date Documented Da te Episodic/Chronic Administrative/social admission (1 source) Persons encountering health services in other specified circumstances; Translations: [Encounter for incision and drainage procedure] Onset: 05-15-2024 Episodic Fluid and electrolyte disorders (4 sources) [...] Onset: 10-31-2013 Resolved: 05-23-2014 05-23-2014 Episodic Other gastrointestinal disorders (20 sources) Ascites; Translations: [Other ascites] Onset: 07-04-2024 07-04-2023 Episodic Other gastrointestinal disorders (2 sources) Constipation; Translations: [Other constipation] Onset: 09-20-2024 09-23-2024 Episodic Other gastrointestinal disorders (1 source) Other constipation; Translations: [Other constipation] Onset: 09-20-2024 Episodic Other injuries and conditions due to [...] of blood chemistry] Onset: 07-31-2024 07-21-2024 Episodic Pancreatic disorders (not diabetes) (20 sources) Pancreatic duct disorder; Translations: [Other specified diseases of pancreas] Onset: 09-05-2024 08-20-2024 Episodic Pia-; endo-; and myocarditis; cardiomyopathy (except that caused by tuberculosis or sexually transmitted disease) (20 sources) Vegetation of heart; Translations: [Acute and subacute infective endocarditis] Onset: 07-24-2024 07-22-2024 Episodic Pneumonia (except that caused by tuberculosis [...] Name Value Interpretation Reference Range Facility CBC panel Auto (Bld)on 01-13 Erythrocyte distribution width (RBC) [Ratio] 13.7 % 11.5 - 14.5 % [facility] Hematocrit (Bld) [Volume fraction] 45.9 % 36.0 - 46.0 % [facility] Hemoglobin (Bld) [Mass/Vol] 15.1 g/dL 12.0 - 16.0 g/dL [facility] Interpretation and review of laboratory results Abnormal [facility] MCH (RBC) [Entitic mass] 31.8 pg 26. 0 - 34.0 pg [facility] MCHC (RBC) [Mass/Vol] 32.9 g/dL 32.0 - 36.0 g/dL [facility] MCV (RBC) [Entitic vol] 97 fL 80 - 100 fL [facility] Nucleated RBC/100 WBC (Bld) [Ratio] 0.0 % [facility] Platelets (Bld) [#/Vol] 253 10*3/uL [facility] RBC (Bld) [#/Vol] 4.75 10*6/uL [facility] WBC (Bld) [#/Vol] 11.9 10*3/uL High [facility] Erythrocyte distribution width (RBC) [Ratio] 13.7 % Normal 11.5-14.5 [facility] Comment on above: Performed By: #### 1 1123-9 #### SAMARIA CHAO ([id number]) [facility] ([facility]) [address] [place] [address] Hematocrit (Bld) [Volume fraction] 45.9 % Normal 36.0-46.0 [facility] Comment on above: Performed By: #### 1 [id number] #### SAMARIA CHAO ([id number]) [facility] ([facility]) [address] [place] [address] Hemoglobin (Bld) [Mass/Vol] 15.1 g/dL Normal 12.0-16.0 [facility] Comment on above: Performed By: #### 1 [id number] #### SAMARIA CHOA ([id number]) [facility] ([facility]) [address] [place] [address] MCH (RBC) [Entitic mass] 31.8 pg Normal 26.0-34.0 [facility] Comment on above: Performed By: #### 1 9123-9 #### SAMARIA CHAO ([id number]) [facility] ([facility]) [address] [place] [address] MCHC (RBC) [Mass/Vol] 32.9 g/dL Normal 32.0-36.0 [facility] Comment on above: Performed By: #### 1 4823-9 #### SAMARIA CHAO ([id number]) [facility] ([facility]) [address] [place] [address] MCV (RBC) [Entitic vol] 97 fL Normal 80-100 U [facility] Comment on above: Performed By: #### 1 9123-9 #### SAMARIA CHAO ([id number]) [facility] ([facility]) [address] [place] [address] Nucleated RBC/100 WBC (Bld) [Ratio] 0.0 /100 WBCs Normal 0.0-0.0 [facility] Comment on above: Performed By: #### 1 9123-9 #### SAMARIA CHAO ([id number]) [facility] ([facility]) [address] [place] [address] Platelets (Bld) [#/Vol] 253 x10*3/uL Normal 150-450 [facility] Comment on above: Performed By: #### 1 9123-9 #### SAMARIA CHAO ([id number]) [facility] ([facility]) [address] [place] [address] RBC (Bld) [#/Vol] 4.75 x10*6/uL Normal 4.00-5.20 [facility] Comment on above: Performed By: #### 1 9123-9 #### SAMARIA CHAO ([id number]) [facility] ([facility]) [address] [place] [address] WBC (Bld) [#/Vol] 11.9 x10*3/uL High 4.4-11.3 [facility] Comment on above: Performed By: #### 1 9123-9 #### SAMARIA CHAO ([id number]) [facility] ([facility]) [address] [place] [address] Comprehensive metabolic 2000 panelon 01-13-2025 Albumin BCP dye [Mass/Vol] 4.3 g/dL 3.4 - 5.0 g/dL [facility] ALP [Catalytic activity/Vol] 129 U/L High 33 - 110 U/L [facility] ALT With P-5'-P [Catalytic activity/Vol] 93 U/L High 7 - 45 U/L [facility] Comment on above: Patients treated wit h Sulfasalazine may generate falsely decreased results for ALT. Anion gap [Moles/Vol] 12 mmol/L 10 - 2 0 mmol/L [facility] AST With P-5'-P [Catalytic activity/Vol] 58 U/L High 9 - 39 U/L [facility] Bilirubin [Mass/Vol] 0.9 mg/dL 0.0 - 1 .2 mg/dL [facility] Calcium [Mass/Vol] 9.5 mg/dL 8.6 - 10. 3 mg/dL [facility] Chloride [Moles/Vol] 102 mmol/L 98 - 10 7 mmol/L [facility] CO2 [Moles/Vol] 25 mmol/L 21 - 32 mmol/L [facility] Comment on above: Bicarbonate results may be falsely elevated when Lactate Dehydrogenase (LDH) concentrations exceed 2,000 U/L due to a temporary reagent manufacturing issue. If significantly elevated LDH levels are suspected, interpret bicarbonate results with caution, correlate with the patient s clinical status, and consider confirming CO2 values using a blood gas analyzer. Creatinine [Mass/Vol] 0.72 mg/dL 0.50 - 1.05 mg/dL [facility] eGFR - PINF [facility] Comment on above: Calculations of vidal mated GFR are performed using the 2020 CKD-EPI Study Refit equation without the race variable for the IDMS-Traceable creatinine methods. https://jasn.asnjournals.org/content//ASN.103 1940990 Glucose [Mass/Vol] 94 mg/dL 74 - 99 mg/dL [facility] Interpretation and review of laboratory results Abnormal [facility] Potassium [Moles/Vol] 3.9 mmol/L 3.5 - 5.3 mmol/L [facility] Protein [Mass/Vol] 7.1 g/dL 6.4 - 8.2 g/dL [facility] Sodium [Moles/Vol] 135 mmol/L Low 136 - 145 mmol/L [facility] Urea nitrogen [Mass/Vol] 14 mg/dL 6 - 23 mg/dL [facility] Albumin BCP dye [Mass/Vol] 4.3 g/dL Normal 3.4-5.0 [facility] Comment on above: Performed By: #### 1 9123-9 #### SAMARIA CHAO ([id number]) [facility] ([facility]) [address] [place] [address] ALP [Catalytic activity/Vol] 129 U/L High 33-110 [facility] Comment on above: Performed By: #### 1 9123-9 #### SAMARIA CHAO ([id number]) [facility] ([facility]) [address] [place] [address] ALT With P-5'-P [Catalytic activity/Vol] 93 U/L High 7-45 [facility] Comment on above: Result Comment: Makayla ents treated with Sulfasalazine may generate falsely decreased results for ALT. Performed By: #### 1 9123-9 #### SAMARIA CHAO ([id number]) [facility] ([facility]) [address] [place] [address] Anion gap [Moles/Vol] 12 mmol/L Normal 10-20 [facility] Comment on above: Performed By: #### 1 9123-9 #### SAMARIA CHAO ([id number]) [facility] ([facility]) [address] [place] [address] AST With P-5'-P [Catalytic activity/Vol] 58 U/L High 9-39 [facility] Comment on above: Performed By: #### 1 9123-9 #### SAMARIA CHAO ([id number]) [facility] ([facility]) [address] [place] [address] Bilirubin [Mass/Vol] 0.9 mg/dL Normal 0.0-1.2 [facility] Comment on above: Performed By: #### 1 9123-9 #### SAMARIA CHAO ([id number]) [facility] ([facility]) [address] [place] [address] Calcium [Mass/Vol] 9.5 mg/dL Normal 8.6-10.[address] [facility] Comment on above: Performed By: #### 1 9123-9 #### SAMARIA CHAO ([id number]) [facility]) [address] [place] [address] Chloride [Moles/Vol] 102 mmol/L Normal 98-107 [facility] Comment on above: Performed By: #### 1 9123-9 #### SAMARIA CHAO ([id number]) [facility] ([facility]) [address] [place] [address] CO2 [Moles/Vol] 25 mmol/L Normal 21-32 [facility] Comment on above: Result Comment: Bica rbonate results may be falsely elevated when Lactate Dehydrogenase (LDH) concentrations exceed 2,000 U/L due to a temporary reagent manufacturing issue. If significantly elevated LDH levels are suspected, interpret bicarbonate results with caution, correlate with the patient's clinical status, and consider confirming CO2 values using a blood gas analyzer. Performed By: #### 1 9123-9 #### SAMARIA CHAO ([id number]) [facility] ([facility]) [address] [place] [address] Creatinine [Mass/Vol] 0.72 mg/dL Normal 0.50-1.05 [facility] Comment on above: Performed By: #### 1 9123-9 #### SAMARIA CHAO ([id number]) [facility] ([facility]) [address] [place] [address] Glomerular filtration rate >90 Normal >60 [facility] Comment on above: Result Comment: Calc ulations of estimated GFR are performed using the 2020 CKD-EPI Study Refit equation without the race variable for the IDMS-Traceable creatinine methods. https://jasn.asnjournals.org/content/early/ASN.345 2276461 Performed By: #### 1 9123-9 #### SAMARIA CHAO ([id number]) [facility]) [address] [place] [address] Glucose [Mass/Vol] 94 mg/dL Normal 74-[address] [facility] Comment on above: Performed By: #### 1 9123-9 #### SAMARIA CHAO ([id number]) [facility]) [address] [place] [address] Potassium [Moles/Vol] 3.9 mmol/L Normal 3.5-5.3 [facility] Comment on above: Performed By: #### 1 9123-9 #### SAMARIA CHAO ([id number]) [facility] ([facility]) [address] [place] [address] Protein [Mass/Vol] 7.1 g/dL Normal 6.4-8.[address] [facility] Comment on above: Performed By: #### 1 9123-9 #### SAMARIA CHAO ([id number]) [facility] ([facility]) [address] [place] [address] Sodium [Moles/Vol] 135 mmol/L Low 136-[address] [facility] Comment on above: Performed By: #### 1 9123-9 #### SAMARIA CHAO ([id number]) [facility] ([facility]) [address] [place] [address] Urea nitrogen [Mass/Vol] 14 mg/dL Normal 6-23 [facility] Comment on above: Performed By: #### 1 9123-9 #### SAMARIA CHAO ([id number]) [facility] ([facility]) [address] [place] [address] Magnesiumon 01-13-2025 Magnesium [Mass/Vol] 1.87 mg/dL 1.60 - 2.40 mg/dL [facility] Magnesium [Mass/Vol] 1.87 mg/dL Normal 1.60-2.40 [facility] Comment on above: Performed By: #### 1 9123-9 #### SAMARIA CHAO ([id number]) [facility] ([facility]) [address] [place] [address] Magnesium [Mass/Vol]on 01-13 Interpretation and review of laboratory results Normal [facility] CBC panel Auto (Bld)on 01-12 Erythrocyte distribution width (RBC) [Ratio] 13.8 % 11.5 - 14.5 % [facility] Hematocrit (Bld) [Volume fraction] 44.6 % 36.0 - 46.0 % [facility] Hemoglobin (Bld) [Mass/Vol] 13.8 g/dL 12.0 - 16.0 g/dL [facility] Interpretation and review of laboratory results Abnormal [facility] MCH (RBC) [Entitic mass] 30.7 pg 26. 0 - 34.0 pg [facility] MCHC (RBC) [Mass/Vol] 30.9 g/dL Low 32.0 - 36.0 g/dL [facility] MCV (RBC) [Entitic vol] 99 fL 80 - 100 fL [facility] Nucleated RBC/100 WBC (Bld) [Ratio] 0.0 % [facility] Platelets (Bld) [#/Vol] 219 10*3/uL [facility] RBC (Bld) [#/Vol] 4.50 10*6/uL [facility] WBC (Bld) [#/Vol] 13.3 10*3/uL High [facility] Erythrocyte distribution width (RBC) [Ratio] 13.8 % Normal 11.5-14.5 [facility] Comment on above: Performed By: #### 2 4323-8 #### SAMARIA CHAO ([id number]) [facility] ([facility]) [address] [place] [address] Hematocrit (Bld) [Volume fraction] 44.6 % Normal 36.0-46.0 [facility] Comment on above: Performed By: #### 2 4323-8 #### SAMARIA CHAO ([id number]) [facility] ([facility]) [address] [place] [address] Hemoglobin (Bld) [Mass/Vol] 13.8 g/dL Normal 12.0-16.0 [facility] Comment on above: Performed By: #### 2 4323-8 #### SAMARIA CHAO ([id number]) [facility] ([facility]) [address] [place] [address] MCH (RBC) [Entitic mass] 30.7 pg Normal 26.0-34.0 [facility] Comment on above: Performed By: #### 2 4323-8 #### SAMARIA CHAO ([id number]) [facility] ([facility]) [address] [place] [address] MCHC (RBC) [Mass/Vol] 30.9 g/dL Low 32.0-36.0 [facility] Comment on above: Performed By: #### 2 4323-8 #### SAMARIA CHAO ([id number]) [facility] ([facility]) [address] [place] [address] MCV (RBC) [Entitic vol] 99 fL Normal 80-100 U [facility] Comment on above: Performed By: #### 2 432-8 #### SAMARIA CHAO ([id number]) [facility] ([facility]) [address] [place] [address] Nucleated RBC/100 WBC (Bld) [Ratio] 0.0 /100 WBCs Normal 0.0-0.0 [facility] Comment on above: Performed By: #### 2 432-8 #### SAMARIA CHAO ([id number]) [facility] ([facility]) [address] [place] [address] Platelets (Bld) [#/Vol] 219 x10*3/uL Normal 150-450 [facility] Comment on above: Performed By: #### 2 4323-8 #### SAMARIA CHAO ([id number]) [facility] ([facility]) [address] [place] [address] RBC (Bld) [#/Vol] 4.50 x10*6/uL Normal 4.00-5.20 [facility] Comment on above: Performed By: #### 2 4323-8 #### SAMARIA CHAO ([id number]) [facility] ([facility]) [address] [place] [address] WBC (Bld) [#/Vol] 13.3 x10*3/uL High 4.4-11.3 [facility] Comment on above: Performed By: #### 2 4323-8 #### SAMARIA CHAO ([id number]) [facility] ([facility]) [address] [place] [address] Comprehensive metabolic 2000 panelon 01-12-2025 Albumin BCP dye [Mass/Vol] 4.2 g/dL 3.4 - 5.0 g/dL [facility] ALP [Catalytic activity/Vol] 118 U/L High 33 - 110 U/L [facility] ALT With P-5'-P [Catalytic activity/Vol] 67 U/L High 7 - 45 U/L [facility] Comment on above: Patients treated wit h Sulfasalazine may generate falsely decreased results for ALT. Anion gap [Moles/Vol] 10 mmol/L 10 - 2 0 mmol/L [facility] AST With P-5'-P [Catalytic activity/Vol] 27 U/L 9 - 39 U/L [facility] Bilirubin [Mass/Vol] 0.6 mg/dL 0.0 - 1 .2 mg/dL [facility] Calcium [Mass/Vol] 9.2 mg/dL 8.6 - 10. 3 mg/dL [facility] Chloride [Moles/Vol] 103 mmol/L 98 - 10 7 mmol/L [facility] CO2 [Moles/Vol] 26 mmol/L 21 - 32 mmol/L [facility] Comment on above: Bicarbonate results may be falsely elevated when Lactate Dehydrogenase (LDH) concentrations exceed 2,000 U/L due to a temporary reagent manufacturing issue. If significantly elevated LDH levels are suspected, interpret bicarbonate results with caution, correlate with the patient s clinical status, and consider confirming CO2 values using a blood gas analyzer. Creatinine [Mass/Vol] 0.76 mg/dL 0.50 - 1.05 mg/dL [facility] eGFR - PINF [facility] Comment on above: Calculations of vidal mated GFR are performed using the 2020 CKD-EPI Study Refit equation without the race variable for the IDMS-Traceable creatinine methods. https://jasn.asnjournals.org/content/early/ASN.505 7459293 Glucose [Mass/Vol] 93 mg/dL 74 - 99 mg/dL [facility] Interpretation and review of laboratory results Abnormal [facility] Potassium [Moles/Vol] 3.9 mmol/L 3.5 - 5.3 mmol/L [facility] Protein [Mass/Vol] 6.7 g/dL 6.4 - 8.2 g/dL [facility] Sodium [Moles/Vol] 135 mmol/L Low 136 - 145 mmol/L [facility] Urea nitrogen [Mass/Vol] 15 mg/dL 6 - 23 mg/dL [facility] Albumin BCP dye [Mass/Vol] 4.2 g/dL Normal 3.4-5.0 [facility] Comment on above: Performed By: #### 2 4323-8 #### SAMARIA CHAO ([id number]) [facility] ([facility]) [address] [place] [address] ALP [Catalytic activity/Vol] 118 U/L High 33-110 [facility] Comment on above: Performed By: #### 2 4323-8 #### SAMARIA CHAO ([id number]) [facility] ([facility]) [address] [place] [address] ALT With P-5'-P [Catalytic activity/Vol] 67 U/L High 7-45 [facility] Comment on above: Result Comment: Makayla ents treated with Sulfasalazine may generate falsely decreased results for ALT. Performed By: #### 2 4323-8 #### SAMARIA CHAO ([id number]) [facility] ([facility]) [address] [place] [address] Anion gap [Moles/Vol] 10 mmol/L Normal 10-20 [facility] Comment on above: Performed By: #### 2 4323-8 #### SAMARIA CHAO ([id number]) [facility] ([facility]) [address] [place] [address] AST With P-5'-P [Catalytic activity/Vol] 27 U/L Normal 9-39 [facility] Comment on above: Performed By: #### 2 4323-8 #### SAMARIA CHAO ([id number]) [facility] ([facility]) [address] [place] [address] Bilirubin [Mass/Vol] 0.6 mg/dL Normal 0.0-1.2 [facility] Comment on above: Performed By: #### 2 4323-8 #### SAMARIA CHAO ([id number]) [facility] ([facility]) [address] [place] [address] Calcium [Mass/Vol] 9.2 mg/dL Normal 8.6-10.[address] [facility] Comment on above: Performed By: #### 2 4323-8 #### SAMARIA CHAO ([id number]) [facility]) [address] [place] [address] Chloride [Moles/Vol] 103 mmol/L Normal 98-107 [facility] Comment on above: Performed By: #### 2 4323-8 #### SAMARIA CHAO ([id number]) [facility]) [address] [place] [address] CO2 [Moles/Vol] 26 mmol/L Normal 21-32 [facility] Comment on above: Result Comment: Bica rbonate results may be falsely elevated when Lactate Dehydrogenase (LDH) concentrations exceed 2,000 U/L due to a temporary reagent manufacturing issue. If significantly elevated LDH levels are suspected, interpret bicarbonate results with caution, correlate with the patient's clinical status, and consider confirming CO2 values using a blood gas analyzer. Performed By: #### 2 4323-8 #### SAMARIA CHAO ([id number]) [facility] ([facility]) [address] [place] [address] Creatinine [Mass/Vol] 0.76 mg/dL Normal 0.50-1.05 [facility] Comment on above: Performed By: #### 2 4323-8 #### SAMARIA CHAO ([id number]) [facility]) [address] [place] [address] Glomerular filtration rate >90 Normal >60 [facility] Comment on above: Result Comment: Calc ulations of estimated GFR are performed using the 2020 CKD-EPI Study Refit equation without the race variable for the IDMS-Traceable creatinine methods. https://jasn.asnjournals.org/content//ASN.398 0753386 Performed By: #### 2 4323-8 #### SAMARIA CHAO ([id number]) [facility] ([facility]) [address] [place] [address] Glucose [Mass/Vol] 93 mg/dL Normal 74-[address] [facility] Comment on above: Performed By: #### 2 4323-8 #### SAMARIA CHAO ([id number]) [facility]) [address] [place] [address] Potassium [Moles/Vol] 3.9 mmol/L Normal 3.5-5.3 [facility] Comment on above: Performed By: #### 2 4323-8 #### SAMARIA CHAO ([id number]) [facility] ([facility]) [address] [place] [address] Protein [Mass/Vol] 6.7 g/dL Normal 6.4-8.[address] [facility] Comment on above: Performed By: #### 2 4323-8 #### SAMARIA CHAO ([id number]) [facility] ([facility]) [address] [place] [address] Sodium [Moles/Vol] 135 mmol/L Low 136-[address] [facility] Comment on above: Performed By: #### 2 4323-8 #### SAMARIA CHAO ([id number]) [facility] ([facility]) [address] [place] [address] Urea nitrogen [Mass/Vol] 15 mg/dL Normal 6-23 [facility] Comment on above: Performed By: #### 2 4323-8 #### SAMARIA CHAO ([id number]) [facility] ([facility]) [address] [place] [address] ECG 12-LEADon 01-12-2025 ECG 12-LEAD Ventricular Rate 66 Atrial Rate 66 P-R Interval 150 QRS Duration 94 Q-T Interval 440 QTC Calculation(Bazett) 461 P Morganza 31 R Morganza -66 T Morganza 87 QRS Count 11 Q Onset 210 P Onset 135 P Offset 198 T Offset 430 QTC Fredericia 454 Diagnosis Normal sinus rhythm Left anterior fascicular block Abnormal ECG When compared with ECG of 10-JAN-2025 23:07, Sinus rhythm has replaced Electronic atrial pacemaker Incomplete right bundle branch block is no longer Present Normal [facility] Magnesiumon 01-12-2025 Magnesium [Mass/Vol] 1.98 mg/dL 1.60 - 2.40 mg/dL [facility] Magnesium [Mass/Vol] 1.98 mg/dL Normal 1.60-2.40 [facility] Comment on above: Performed By: #### 2 4323-8 #### SAMARIA CHAO ([id number]) [facility]) [address] [place] [address] Magnesium [Mass/Vol]on 01-12 Interpretation and review of laboratory results Normal [facility] CBC panel Auto (Bld)on 01-11 Erythrocyte distribution width (RBC) [Ratio] 14.4 % 11.5 - 14.5 % [facility] Hematocrit (Bld) [Volume fraction] 42.0 % 36.0 - 46.0 % [facility] Hemoglobin (Bld) [Mass/Vol] 12.7 g/dL 12.0 - 16.0 g/dL [facility] Interpretation and review of laboratory results Abnormal [facility] MCH (RBC) [Entitic mass] 30.7 pg 26. 0 - 34.0 pg [facility] MCHC (RBC) [Mass/Vol] 30.2 g/dL Low 32.0 - 36.0 g/dL [facility] MCV (RBC) [Entitic vol] 101 fL High 80 - 100 fL [facility] Nucleated RBC/100 WBC (Bld) [Ratio] 0.0 % [facility] Platelets (Bld) [#/Vol] 231 10*3/uL [facility] RBC (Bld) [#/Vol] 4.14 10*6/uL [facility] WBC (Bld) [#/Vol] 15.9 10*3/uL High [facility] Erythrocyte distribution width (RBC) [Ratio] 14.4 % Normal 11.5-14.5 [facility] Comment on above: Performed By: #### 2 4323-8 #### SAMARIA CHAO ([id number]) [facility] ([facility]) [address] [place] [address] Hematocrit (Bld) [Volume fraction] 42.0 % Normal 36.0-46.0 [facility] Comment on above: Performed By: #### 2 4323-8 #### SAMARIA CHAO ([id number]) [facility] ([facility]) [address] [place] [address] Hemoglobin (Bld) [Mass/Vol] 12.7 g/dL Normal 12.0-16.0 [facility] Comment on above: Performed By: #### 2 432-8 #### SAMARIA CHAO ([id number]) [facility] ([facility]) [address] [place] [address] MCH (RBC) [Entitic mass] 30.7 pg Normal 26.0-34.0 [facility] Comment on above: Performed By: #### 2 432-8 #### SAMARIA CHAO ([id number]) [facility] ([facility]) [address] [place] [address] MCHC (RBC) [Mass/Vol] 30.2 g/dL Low 32.0-36.0 [facility] Comment on above: Performed By: #### 2 432-8 #### SAMARIA CHAO ([id number]) [facility] ([facility]) [address] [place] [address] MCV (RBC) [Entitic vol] 101 fL High 80-100 U [facility] Comment on above: Performed By: #### 2 432-8 #### SAMARIA CHAO ([id number]) [facility] ([facility]) [address] [place] [address] Nucleated RBC/100 WBC (Bld) [Ratio] 0.0 /100 WBCs Normal 0.0-0.0 [facility] Comment on above: Performed By: #### 2 4323-8 #### SAMARIA CHAO ([id number]) [facility]) [address] [place] [address] Platelets (Bld) [#/Vol] 231 x10*3/uL Normal 150-450 [facility] Comment on above: Performed By: #### 2 4323-8 #### SAMARIA CHAO ([id number]) [facility]) [address] [place] [address] RBC (Bld) [#/Vol] 4.14 x10*6/uL Normal 4.00-5.20 [facility] Comment on above: Performed By: #### 2 4323-8 #### SAMARIA CHAO ([id number]) [facility] ([facility]) [address] [place] [address] WBC (Bld) [#/Vol] 15.9 x10*3/uL High 4.4-11.3 [facility] Comment on above: Performed By: #### 2 4323-8 #### SAMARIA CHAO ([id number]) [facility] ([facility]) [address] [place] [address] Comprehensive metabolic 2000 panelon 01-11-2025 Albumin BCP dye [Mass/Vol] 4.0 g/dL 3.4 - 5.0 g/dL [facility] ALP [Catalytic activity/Vol] 117 U/L High 33 - 110 U/L [facility] ALT With P-5'-P [Catalytic activity/Vol] 79 U/L High 7 - 45 U/L [facility] Comment on above: Patients treated wit h Sulfasalazine may generate falsely decreased results for ALT. Anion gap [Moles/Vol] 10 mmol/L 10 - 2 0 mmol/L [facility] AST With P-5'-P [Catalytic activity/Vol] 30 U/L 9 - 39 U/L [facility] Bilirubin [Mass/Vol] 0.5 mg/dL 0.0 - 1 .2 mg/dL [facility] Calcium [Mass/Vol] 9.2 mg/dL 8.6 - 10. 3 mg/dL [facility] Chloride [Moles/Vol] 107 mmol/L 98 - 10 7 mmol/L [facility] CO2 [Moles/Vol] 26 mmol/L 21 - 32 mmol/L [facility] Comment on above: Bicarbonate results may be falsely elevated when Lactate Dehydrogenase (LDH) concentrations exceed 2,000 U/L due to a temporary reagent manufacturing issue. If significantly elevated LDH levels are suspected, interpret bicarbonate results with caution, correlate with the patient s clinical status, and consider confirming CO2 values using a blood gas analyzer. Creatinine [Mass/Vol] 0.69 mg/dL 0.50 - 1.05 mg/dL [facility] eGFR - PINF [facility] Comment on above: Calculations of vidal mated GFR are performed using the 2020 CKD-EPI Study Refit equation without the race variable for the IDMS-Traceable creatinine methods. https://jasn.asnjournals.org/content/early//ASN.012 5204351 Glucose [Mass/Vol] 89 mg/dL 74 - 99 mg/dL [facility] Interpretation and review of laboratory results Abnormal [facility] Potassium [Moles/Vol] 4.0 mmol/L 3.5 - 5.3 mmol/L [facility] Protein [Mass/Vol] 6.3 g/dL Low 6.4 - 8.2 g/dL [facility] Sodium [Moles/Vol] 139 mmol/L 136 - 145 mmol/L [facility] Urea nitrogen [Mass/Vol] 17 mg/dL 6 - 23 mg/dL [facility] Albumin BCP dye [Mass/Vol] 4.0 g/dL Normal 3.4-5.0 [facility] Comment on above: Performed By: #### 2 4323-8 #### SAMARIA CHAO ([id number]) [facility] ([facility]) [address] [place] [address] ALP [Catalytic activity/Vol] 117 U/L High 33-110 [facility] Comment on above: Performed By: #### 2 4323-8 #### SAMARIA CHAO ([id number]) [facility] ([facility]) [address] [place] [address] ALT With P-5'-P [Catalytic activity/Vol] 79 U/L High 7-45 [facility] Comment on above: Result Comment: Makayla ents treated with Sulfasalazine may generate falsely decreased results for ALT. Performed By: #### 2 4323-8 #### SAMARIA CHAO ([id number]) [facility] [address] [place] [address] Anion gap [Moles/Vol] 10 mmol/L Normal 10-20 [facility] Comment on above: Performed By: #### 2 4323-8 #### SAMARIA CHAO ([id number]) [facility] [address] [place] [address] AST With P-5'-P [Catalytic activity/Vol] 30 U/L Normal 9-39 [facility] Comment on above: Performed By: #### 2 4323-8 #### SAMARIA CHAO ([id number]) [facility]) [address] [place] [address] Bilirubin [Mass/Vol] 0.5 mg/dL Normal 0.0-1.2 [facility] Comment on above: Performed By: #### 2 4323-8 #### SAMARIA CHAO ([id number]) [facility]) [address] [place] [address] Calcium [Mass/Vol] 9.2 mg/dL Normal 8.6-10.[address] [facility] Comment on above: Performed By: #### 2 4323-8 #### SAMARIA CHAO ([id number]) [facility] [address] [place] [address] Chloride [Moles/Vol] 107 mmol/L Normal 98-107 [facility] Comment on above: Performed By: #### 2 4323-8 #### SAMARIA CHAO ([id number]) [facility] [address] [place] [address] CO2 [Moles/Vol] 26 mmol/L Normal 21-32 [facility] Comment on above: Result Comment: Bica rbonate results may be falsely elevated when Lactate Dehydrogenase (LDH) concentrations exceed 2,000 U/L due to a temporary reagent manufacturing issue. If significantly elevated LDH levels are suspected, interpret bicarbonate results with caution, correlate with the patient's clinical status, and consider confirming CO2 values using a blood gas analyzer. Performed By: #### 2 4322-8 #### SAMARIA CHAO ([id number]) [facility] ([facility]) [address] [place] [address] Creatinine [Mass/Vol] 0.69 mg/dL Normal 0.50-1.05 [facility] Comment on above: Performed By: #### 2 4322-8 #### SAMARIA CHAO ([id number]) [facility] ([facility]) [address] [place] [address] Glomerular filtration rate >90 Normal >60 [facility] Comment on above: Result Comment: Calc ulations of estimated GFR are performed using the 2020 CKD-EPI Study Refit equation without the race variable for the IDMS-Traceable creatinine methods. https://jasn.asnjournals.org/content/early//ASN.813 0756188 Performed By: #### 2 4322-8 #### SAMARIA CHAO ([id number]) [facility] ([facility]) [address] [place] [address] Glucose [Mass/Vol] 89 mg/dL Normal 74-[address] [facility] Comment on above: Performed By: #### 2 4322-8 #### SAMARIA CHAO ([id number]) [facility] [address] [place] [address] Potassium [Moles/Vol] 4.0 mmol/L Normal 3.5-5.3 [facility] Comment on above: Performed By: #### 2 4322-8 #### SAMARIA CHAO ([id number]) [facility] ([facility]) [address] [place] [address] Protein [Mass/Vol] 6.3 g/dL Low 6.4-8.[address] [facility] Comment on above: Performed By: #### 2 4322-8 #### SAMARIA CHAO ([id number]) [facility]) [address] [place] [address] Sodium [Moles/Vol] 139 mmol/L Normal 136-[address] [facility] Comment on above: Performed By: #### 2 4323-8 #### SAMARIA CHAO ([id number]) [facility] [address] [place] [address] Urea nitrogen [Mass/Vol] 17 mg/dL Normal 6-23 [facility] Comment on above: Performed By: #### 2 4323-8 #### SAMARIA CHAO ([id number]) [facility] [address] [place] [address] ECG 12 leadon 01-11-2025 Atrial Rate 56 BPM [facility] Work Phone: [phone] P Morganza 2 degrees [facility] Work Phone: [phone] [facility] Work Phone: [phone] [facility] Work Phone: [phone] MD Interval 180 ms [facility] Work Phone: [phone] Q Onset 211 ms [facility] Work Phone: [phone] QRS Count 10 beats [facility] Work Phone: [phone] QRS Duration 102 ms [facility] Work Phone: [phone] QT Interval 476 ms [facility] Work Phone: [phone] QTC Calculation(Bazett) 459 ms [facility] Work Phone: [phone] QTC Fredericia 465 ms [facility] Work Phone: [phone] R Morganza -65 degrees [facility] Work Phone: [phone] T Morganza 82 degrees [facility] Work Phone: [phone] T Offset 449 ms [facility] Work Phone: [phone] Ventricular Rate 56 BPM [facility] Work Phone: [phone] Sinus bradycardia Possible Left atrial enlargement Incomplete right bundle branch block Left anterior fascicular block Abnormal ECG When compared with ECG of 09-JAN-2025 11:26, (unconfirmed) No significant change was found Confirmed by Theodore Rojas ([id number]) on 01/11/2025 11:31:15 AM MUSE Theodore Rojas MD - 01/11/2025 Sinus bradycardia Possible Left atrial enlargement Incomplete right bundle branch block Left anterior fascicular block Abnormal ECG When compared with ECG of 09-JAN-2025 11:26, (unconfirmed) No significant change was found Confirmed by Theodore Rojas ([id number]) on 01/11/2025 11:31:15 AM [facility] Work Phone: [phone] [facility] Work Phone: [phone] Atrial Rate 62 BPM [facility] Work Phone: [phone] P Morganza 116 degrees [facility] Work Phone: [phone] P Offset 199 ms [facility] Work Phone: [phone] P Onset 128 ms [facility] Work Phone: [phone] MD Interval 164 ms [facility] Work Phone: [phone] Q Onset 210 ms [facility] Work Phone: [phone] QRS Count 10 beats [facility] Work Phone: [phone] QRS Duration 96 ms [facility] Work Phone: [phone] QT Interval 452 ms [facility] Work Phone: [phone] QTC Calculation(Bazett) 458 ms [facility] Work Phone: [phone] QTC Fredericia 457 ms [facility] Work Phone: [phone] R Morganza 246 degrees [facility] Work Phone: [phone] T Morganza 90 degrees [facility] Work Phone: [phone] T Offset 436 ms [facility] Work Phone: Ventricular Rate 62 BPM [facility] Work Phone: Suspect arm lead reversal, interpretation assumes no reversal Normal sinus rhythm Right superior axis deviation Pulmonary disease pattern Nonspecific ST and T wave abnormality Abnormal ECG When compared with ECG of 10-JAN-2025 11:25, (unconfirmed) Sinus rhythm has replaced Electronic atrial pacemaker Confirmed by Theodore Rojas ([id number]) on 01/11/2025 11:31:09 AM Theodore Encinas MD - 01/11/2025 Suspect arm lead reversal, interpretation assumes no reversal Normal sinus rhythm Right superior axis deviation Pulmonary disease pattern Nonspecific ST and T wave abnormality Abnormal ECG When compared with ECG of 10-JAN-2025 11:25, (unconfirmed) Sinus rhythm has replaced Electronic atrial pacemaker Confirmed by Theodore Rojas ([id number]) on 01/11/2025 11:31:09 AM [facility] Work Phone: [facility] Work Phone: ECG 12-LEADon 01-11-2025 ECG 12-LEAD Ventricular Rate 64 Atrial Rate 64 P-R Interval 162 QRS Duration 94 Q-T Interval 470 QTC Calculation(Bazett) 484 P Morganza 7 R Morganza -61 T Morganza 67 QRS Count 10 Q Onset 206 P Onset 125 P Offset 185 T Offset 441 QTC Fredericia 480 Diagnosis Normal sinus rhythm Left atrial enlargement Incomplete right bundle branch block Left anterior fascicular block Abnormal ECG When compared with ECG of 11-JAN-2025 14:35, (unconfirmed) Sinus rhythm has replaced Electronic atrial pacemaker T wave inversion less evident in Lateral leads Normal [facility] ECG 12-LEAD Ventricular Rate 60 Atrial Rate 60 P-R Interval 186 QRS Duration 94 Q-T Interval 458 QTC Calculation(Bazett) 458 P Morganza 20 R Morganza -59 T Morganza 90 QRS Count 10 Q Onset 203 P Onset 150 P Offset 186 T Offset 432 QTC Fredericia 458 Diagnosis Atrial-paced rhythm RSR' or QR pattern in V1 suggests right ventricular conduction delay Left anterior fascicular block Septal infarct , age undetermined ST & T wave abnormality, consider lateral ischemia Abnormal ECG No previous ECGs available Normal [facility] Electrocardiogram 12 lead MD N ACS symptomson 01-11-2025 Atrial Rate 60 BPM [facility] Work Phone: P Morganza 63 degrees [facility] Work Phone: P Offset 189 ms [facility] Work Phone: [phone] P Onset 132 ms [facility] Work Phone: MD Interval 188 ms [facility] Work Phone: Q Onset 204 ms [facility] Work Phone: QRS Count 10 beats [facility] Work Phone: QRS Duration 98 ms [facility] Work Phone: [phone] QT Interval 470 ms [facility] Work Phone: QTC Calculation(Bazett) 470 ms [facility] Work Phone: QTC Fredericia 470 ms [facility] Work Phone: R Morganza -55 degrees [facility] Work Phone: T Morganza 96 degrees [facility] Work Phone: [phone] T Offset 439 ms [facility] Work Phone: Ventricular Rate 60 BPM [facility] Work Phone: Atrial-paced rhythm Incomplete right bundle branch block Left anterior fascicular block Nonspecific ST and T wave abnormality Abnormal ECG When compared with ECG of 10-JAN-2025 11:25, (unconfirmed) Electronic atrial pacemaker has replaced Sinus rhythm Left anterior fascicular block is now Present Incomplete right bundle branch block is now Present Confirmed by Theodore Rojas ([id number]) on 01/11/2025 11:31:02 AM MUSE Theodore Rojas MD - 01/11/2025 Atrial-paced rhythm Incomplete right bundle branch block Left anterior fascicular block Nonspecific ST and T wave abnormality Abnormal ECG When compared with ECG of 10-JAN-2025 11:25, (unconfirmed) Electronic atrial pacemaker has replaced Sinus rhythm Left anterior fascicular block is now Present Incomplete right bundle branch block is now Present Confirmed by Theodore Rojas ([id number]) on 01/11/2025 11:31:02 AM [facility] Work Phone: [facility] Work Phone: Magnesiumon 01-11-2025 Magnesium [Mass/Vol] 1.87 mg/dL 1.60 - 2.40 mg/dL [facility] Magnesium [Mass/Vol] 1.87 mg/dL Normal 1.60-2.40 [facility] Comment on above: Performed By: #### 2 4323-8 #### SAMARIA CHAO ([id number]) [facility] ([facility]) [address] [place] [address] Magnesium [Mass/Vol]on 01-11 Interpretation and review of laboratory results Normal [facility] SST TOPon 01-11-2025 Extra Tube Hold for add-ons. [facility] Work Phone: Comment on above: Auto resulted. [facility] Work Phone: XR CHEST 2 VIEWSon XR CHEST 2 VIEWS Interpreted By: Domi Francisco, STUDY: XR CHEST 2 VIEWS; 01/11/2025 10:59 am INDICATION: Signs/Symptoms:Pain in the right chest. COMPARISON: 01/09/2025 ACCESSION NUMBER(S): [id number] ORDERING CLINICIAN: ERIC DE LA O FINDINGS: CARDIOMEDIASTINAL SILHOUETTE: Cardiomediastinal silhouette is normal in size and configuration. There is a right subclavian bichamber pacemaker-AICD with a single tip in the right atrium and a single tip in the right ventricle. LUNGS: Lungs are clear. ABDOMEN: No remarkable upper abdominal findings. BONES: No acute osseous changes. IMPRESSION: No acute cardiopulmonary process. MACRO: None Signed by: Domi Marrero 01/11/2025 12:04 PM Dictation workstation: [id number] [facility] XR Chest 2 Viewson No acute cardiopulmo nary process. MACRO: None Signed by: Domi Marrero 01/11/2025 12:04 PM Dictation workstation: [id number] MMODAL Interpreted By: Domi Francisco, STUDY: XR CHEST 2 VIEWS; 01/11/2025 10:59 am INDICATION: Signs/Symptoms:Pain in the right chest. COMPARISON: 01/09/2025 ACCESSION NUMBER(S): [id number] ORDERING CLINICIAN: ERIC DE LA O FINDINGS: CARDIOMEDIASTINAL SILHOUETTE: Cardiomediastinal silhouette is normal in size and configuration. There is a right subclavian bichamber pacemaker-AICD with a single tip in the right atrium and a single tip in the right ventricle. LUNGS: Lungs are clear. ABDOMEN: No remarkable upper abdominal findings. BONES: No acute osseous changes. MMODAL Domi Marrero M D - 01/11/2025 Interpreted By: Domi Marrero, STUDY: XR CHEST 2 VIEWS; 01/11/2025 10:59 am INDICATION: Signs/Symptoms:Pain in the right chest. COMPARISON: 01/09/2025 ACCESSION NUMBER(S): [id number] ORDERING CLINICIAN: ERIC DE LA O FINDINGS: CARDIOMEDIASTINAL SILHOUETTE: Cardiomediastinal silhouette is normal in size and configuration. There is a right subclavian bichamber pacemaker-AICD with a single tip in the right atrium and a single tip in the right ventricle. LUNGS: Lungs are clear. ABDOMEN: No remarkable upper abdominal findings. BONES: No acute osseous changes. IMPRESSION: No acute cardiopulmonary process. MACRO: None Signed by: Domi Marrero 01/11/2025 12:04 PM Dictation workstation: [id number] [facility] Work Phone: Radiology Study observation (narrative) [facility] Work Phone: XR Chest 2 ViewsOrdered By: Domi Marrero on 01-11-2025 [facility] Work Phone: CBC panel Auto (Bld)on 01-10 Erythrocyte distribution width (RBC) [Ratio] 14.3 % 11.5 - 14.5 % [facility] Hematocrit (Bld) [Volume fraction] 42.2 % 36.0 - 46.0 % [facility] Hemoglobin (Bld) [Mass/Vol] 13.3 g/dL 12.0 - 16.0 g/dL [facility] Interpretation and review of laboratory results Abnormal [facility] MCH (RBC) [Entitic mass] 31.4 pg 26. 0 - 34.0 pg [facility] MCHC (RBC) [Mass/Vol] 31.5 g/dL Low 32.0 - 36.0 g/dL [facility] MCV (RBC) [Entitic vol] 100 fL 80 - 100 fL [facility] Nucleated RBC/100 WBC (Bld) [Ratio] 0.0 % [facility] Platelets (Bld) [#/Vol] 171 10*3/uL [facility] RBC (Bld) [#/Vol] 4.23 10*6/uL Unive [facility] WBC (Bld) [#/Vol] 18.4 10*3/uL [facility] Erythrocyte distribution width (RBC) [Ratio] 14.3 % Normal 11.5-14.5 [facility] Comment on above: Performed By: #### 5 8410-2 #### SAMARIA CHAO ([id number]) [facility] ([facility]) [address] [place] [address] Hematocrit (Bld) [Volume fraction] 42.2 % Normal 36.0-46.0 [facility] Comment on above: Performed By: #### 5 8410-2 #### SAMARIA CHAO ([id number]) [facility] ([facility]) [address] [place] [address] Hemoglobin (Bld) [Mass/Vol] 13.3 g/dL Normal 12.0-16.0 [facility] Comment on above: Performed By: #### 5 8410-2 #### SAMARIA HCAO ([id number]) [facility] ([facility]) [address] [place] [address] MCH (RBC) [Entitic mass] 31.4 pg Normal 26.0-34.0 [facility] Comment on above: Performed By: #### 5 8410-2 #### SAMARIA CHAO ([id number]) [facility]) [address] [place] [address] MCHC (RBC) [Mass/Vol] 31.5 g/dL Low 32.0-36.0 [facility] Comment on above: Performed By: #### 5 8410-2 #### SAMARIA CHAO ([id number]) [facility] ([facility]) [address] [place] [address] MCV (RBC) [Entitic vol] 100 fL Normal 80-100 U [facility] Comment on above: Performed By: #### 5 8410-2 #### SAMARIA CHAO ([id number]) [facility] ([facility]) [address] [place] [address] Nucleated RBC/100 WBC (Bld) [Ratio] 0.0 /100 WBCs Normal 0.0-0.0 [facility] Comment on above: Performed By: #### 5 8410-2 #### SAMARIA CHAO ([id number]) [facility] ([facility]) [address] [place] [address] Platelets (Bld) [#/Vol] 171 x10*3/uL Normal 150-450 [facility] Comment on above: Performed By: #### 5 8410-2 #### SAMARIA CHAO ([id number]) [facility] ([facility]) [address] [place] [address] RBC (Bld) [#/Vol] 4.23 x10*6/uL Normal 4.00-5.20 [facility] Comment on above: Performed By: #### 5 8410-2 #### SAMARIA CHAO ([id number]) [facility] ([facility]) [address] [place] [address] WBC (Bld) [#/Vol] 18.4 x10*3/uL High 4.4-11.3 [facility] Comment on above: Performed By: #### 5 8410-2 #### SAMARIA ZHANNA ([id number]) [facility]) [address] [place] [address] Comprehensive metabolic 2000 panelon 01-10-2025 Albumin BCP dye [Mass/Vol] 4.1 g/dL 3.4 - 5.0 g/dL [facility] ALP [Catalytic activity/Vol] 129 U/L High 33 - 110 U/L [facility] ALT With P-5'-P [Catalytic activity/Vol] 128 U/L High 7 - 45 U/L [facility] Comment on above: Patients treated wit h Sulfasalazine may generate falsely decreased results for ALT. Anion gap [Moles/Vol] 12 mmol/L 10 - 2 0 mmol/L [facility] AST With P-5'-P [Catalytic activity/Vol] 91 U/L High 9 - 39 U/L [facility] Bilirubin [Mass/Vol] 1.1 mg/dL 0.0 - 1 .2 mg/dL [facility] Calcium [Mass/Vol] 9.4 mg/dL 8.6 - 10. 3 mg/dL [facility] Chloride [Moles/Vol] 105 mmol/L 98 - 10 7 mmol/L [facility] CO2 [Moles/Vol] 20 mmol/L Low 21 - 32 mmol/L [facility] Comment on above: Bicarbonate results may be falsely elevated when Lactate Dehydrogenase (LDH) concentrations exceed 2,000 U/L due to a temporary reagent manufacturing issue. If significantly elevated LDH levels are suspected, interpret bicarbonate results with caution, correlate with the patient s clinical status, and consider confirming CO2 values using a blood gas analyzer. Creatinine [Mass/Vol] 0.74 mg/dL 0.50 - 1.05 mg/dL [facility] eGFR - PINF [facility] Comment on above: Calculations of vidal mated GFR are performed using the 2020 CKD-EPI Study Refit equation without the race variable for the IDMS-Traceable creatinine methods. https://jasn.asnjournals.org/content/early//ASN.238 5410416 Glucose [Mass/Vol] 159 mg/dL High 74 - 99 mg/dL [facility] Interpretation and review of laboratory results Abnormal [facility] Potassium [Moles/Vol] 4.2 mmol/L 3.5 - 5.3 mmol/L [facility] Protein [Mass/Vol] 6.5 g/dL 6.4 - 8.2 g/dL [facility] Sodium [Moles/Vol] 133 mmol/L Low 136 - 145 mmol/L [facility] Urea nitrogen [Mass/Vol] 13 mg/dL 6 - 23 mg/dL [facility] Albumin BCP dye [Mass/Vol] 4.1 g/dL Normal 3.4-5.0 [facility] Comment on above: Performed By: #### 2 4323-8 #### SAMARIA CHAO ([id number]) [facility] ([facility]) [address] [place] [address] ALP [Catalytic activity/Vol] 129 U/L High 33-110 [facility] Comment on above: Performed By: #### 2 4323-8 #### SAMARIA CHAO ([id number]) [facility]) [address] [place] [address] ALT With P-5'-P [Catalytic activity/Vol] 128 U/L High 7-45 [facility] Comment on above: Result Comment: Makayla ents treated with Sulfasalazine may generate falsely decreased results for ALT. Performed By: #### 2 4323-8 #### SAMARIA CHAO ([id number]) [facility]) [address] [place] [address] Anion gap [Moles/Vol] 12 mmol/L Normal 10-20 [facility] Comment on above: Performed By: #### 2 4323-8 #### SAMARIA CHAO ([id number]) [facility]) [address] [place] [address] AST With P-5'-P [Catalytic activity/Vol] 91 U/L High 9-39 [facility] Comment on above: Performed By: #### 2 4323-8 #### SAMARIA CHAO ([id number]) [facility] [address] [place] [address] Bilirubin [Mass/Vol] 1.1 mg/dL Normal 0.0-1.2 [facility] Comment on above: Performed By: #### 2 4322-8 #### SAMARIA CHAO ([id number]) [facility]) [address] [place] [address] Calcium [Mass/Vol] 9.4 mg/dL Normal 8.6-10.[address] [facility] Comment on above: Performed By: #### 2 4322-8 #### SAMARIA CHAO ([id number]) [facility]) [address] [place] [address] Chloride [Moles/Vol] 105 mmol/L Normal 98-107 [facility] Comment on above: Performed By: #### 2 4322-8 #### SAMARIA CHAO ([id number]) [facility]) [address] [place] [address] CO2 [Moles/Vol] 20 mmol/L Low 21-32 [facility] Comment on above: Result Comment: Bica rbonate results may be falsely elevated when Lactate Dehydrogenase (LDH) concentrations exceed 2,000 U/L due to a temporary reagent manufacturing issue. If significantly elevated LDH levels are suspected, interpret bicarbonate results with caution, correlate with the patient's clinical status, and consider confirming CO2 values using a blood gas analyzer. Performed By: #### 2 4323-8 #### SAMARIA CHAO ([id number]) [facility]) [address] [place] [address] Creatinine [Mass/Vol] 0.74 mg/dL Normal 0.50-1.05 [facility] Comment on above: Performed By: #### 2 432-8 #### SAMARIA CHAO ([id number]) [facility]) [address] [place] [address] Glomerular filtration rate >90 Normal >60 [facility] Comment on above: Result Comment: Calc ulations of estimated GFR are performed using the 2020 CKD-EPI Study Refit equation without the race variable for the IDMS-Traceable creatinine methods. https://jasn.asnjournals.org/content/ASN.792 9729455 Performed By: #### 2 4323-8 #### SAMARIA CHAO ([id number]) [facility] ([facility]) [address] [place] [address] Glucose [Mass/Vol] 159 mg/dL High 74-[address] [facility] Comment on above: Performed By: #### 2 4322-8 #### SAMARIA CHAO ([id number]) [facility] ([facility]) [address] [place] [address] Potassium [Moles/Vol] 4.2 mmol/L Normal 3.5-5.3 [facility] Comment on above: Performed By: #### 2 4322-8 #### SAMARIA CHAO ([id number]) [facility]) [address] [place] [address] Protein [Mass/Vol] 6.5 g/dL Normal 6.4-8.[address] [facility] Comment on above: Performed By: #### 2 4323-8 #### SAMARIA CHAO ([id number]) [facility]) [address] [place] [address] Sodium [Moles/Vol] 133 mmol/L Low 136-[address] [facility] Comment on above: Performed By: #### 2 3-8 #### SAMARIA CHAO ([id number]) [facility] [address] [place] [address] Urea nitrogen [Mass/Vol] 13 mg/dL Normal 6-23 [facility] Comment on above: Performed By: #### 2 432-8 #### SAMARIA CHAO ([id number]) [facility] [address] [place] [address] ECG 12-LEADon 01-10-2025 ECG 12-LEAD Ventricular Rate 60 Atrial Rate 60 P-R Interval 188 QRS Duration 98 Q-T Interval 470 QTC Calculation(Bazett) 470 P Morganza 63 R Morganza -55 T Morganza 96 QRS Count 10 Q Onset 204 P Onset 132 P Offset 189 T Offset 439 QTC Fredericia 470 Diagnosis Atrial-paced rhythm Incomplete right bundle branch block Left anterior fascicular block Nonspecific ST and T wave abnormality Abnormal ECG When compared with ECG of 10-JAN-2025 11:25, (unconfirmed) Electronic atrial pacemaker has replaced Sinus rhythm Left anterior fascicular block is now Present Incomplete right bundle branch block is now Present Confirmed by Theodore Rojas ([id number]) on 01/11/2025 11:31:02 AM Normal [facility] ECG 12-LEAD Ventricular Rate 62 Atrial Rate 62 P-R Interval 164 QRS Duration 96 Q-T Interval 452 QTC Calculation(Bazett) 458 P Morganza 116 R Morganza 246 T Morganza 90 QRS Count 10 Q Onset 210 P Onset 128 P Offset 199 T Offset 436 QTC Fredericia 457 Diagnosis Suspect arm lead reversal, interpretation assumes no reversal Normal sinus rhythm Right superior axis deviation Pulmonary disease pattern Nonspecific ST and T wave abnormality Abnormal ECG When compared with ECG of 10-JAN-2025 11:25, (unconfirmed) Sinus rhythm has replaced Electronic atrial pacemaker Confirmed by Theodore Rojas ([id number]) on 01/11/2025 11:31:09 AM Normal [facility] Electrocardiogram 12 Leadon 01-10-2025 Atrial Rate 69 BPM [facility] [facility]: [phone] P Morgan[place] 6 degrees [facility] Work Phone: [phone] P Offset 196 ms [facility] Work Phone: [phone] P Onset 128 ms [facility] Work Phone: [phone] MD Interval 166 ms [facility] Work Phone: [phone] Q Onset 211 ms [facility] Work Phone: [phone] QRS Count 11 beats [facility] Work Phone: [phone] QRS Duration 92 ms [facility] Work Phone: [phone] QT Interval 440 ms [facility] Work Phone: [phone] QTC Calculation(Bazett) 471 ms U [facility] Work Phone: QTC Fredericia 461 ms [facility] Work Phone: R Morganza -66 degrees [facility] Work Phone: T [place] 86 degrees [facility] Work Phone: [phone] T Offset 431 ms [facility] Work Phone: Ventricular Rate 69 BPM [facility] Work Phone: Normal sinus rhythm Biatrial enlargement Left anterior fascicular block Nonspecific ST and T wave abnormality Abnormal ECG When compared with ECG of 09-JAN-2025 22:27, (unconfirmed) No significant change was found Confirmed by Theodore Rojas ([id number]) on 01/10/2025 9:58:04 AM MUSE Theodore Rojas MD - 01/10/2025 Normal sinus rhythm Biatrial enlargement Left anterior fascicular block Nonspecific ST and T wave abnormality Abnormal ECG When compared with ECG of 09-JAN-2025 22:27, (unconfirmed) No significant change was found Confirmed by Theodore Rojas ([id number]) on 01/10/2025 9:58:04 AM [facility] Work Phone: [facility] Work Phone: Magnesiumon 01-10-2025 Magnesium [Mass/Vol] 2.02 mg/dL 1.60 - 2.40 mg/dL [facility] Magnesium [Mass/Vol] 2.02 mg/dL Normal 1.60-2.40 [facility] Comment on above: Performed By: #### 2 4323-8 #### SAMARIA CHAO ([id number]) [facility] [address] [place] [address] Magnesium [Mass/Vol]on 01-10 Interpretation and review of laboratory results Normal [facility] SST TOPOrdered By: Shun Hood ma on 01-10-2025 Extra Tube Hold for add-ons. [facility] Work Phone: Comment on above: Auto resulted. [facility] Work Phone: US Abdomen RUQon 01-10-2025 Diffusely echogenic liver consistent with hepatic steatosis with mild hepatic contour irregularity, nonspecific, which may reflect early fibrosis/developing cirrhosis. Status post cholecystectomy. MACRO: None Signed by: Duy Harley 01/10/2025 11:54 PM Dictation workstation: [id number] Interpreted By: Duy Manuel, STUDY: US RIGHT UPPER QUADRANT; 01/10/2025 6:20 pm INDICATION: Signs/Symptoms:Cirrhosis rule out. COMPARISON: 09/22/2024 ACCESSION NUMBER(S): [id number] ORDERING CLINICIAN: HOME DRISCOLL TECHNIQUE: Multiple images of the right upper quadrant were obtained. FINDINGS: LIVER: The liver measures 16.9 and is diffusely echogenic in appearance, consistent with diffuse fatty infiltration with mild hepatic contour irregularity. The resulting increased beam attenuation thereby limiting evaluation of the liver for focal lesions. Within the limitations, no focal lesions are seen. GALLBLADDER: The gallbladder is surgically absent. Sonographic Langley's sign is negative. BILE DUCTS: No evidence of intra or extrahepatic biliary dilatation is identified; the common bile duct measures 0.2. PANCREAS: The pancreas is poorly visualized due to overlying bowel gas. RIGHT KIDNEY: The right kidney measures 8.5 cm in length. The renal cortical echogenicity and thickness are within normal limit. No hydronephrosis or renal calculi are seen. [facility] MMODAL Duy Harley MD - 01/10/2025 Interpreted By: Duy Harley, STUDY: US RIGHT UPPER QUADRANT; 01/10/2025 6:20 pm INDICATION: Signs/Symptoms:Cirrhosis rule out. COMPARISON: 09/22/2024 ACCESSION NUMBER(S): [id number] ORDERING CLINICIAN: HOME DRISCOLL TECHNIQUE: Multiple images of the right upper quadrant were obtained. FINDINGS: LIVER: The liver measures 16.9 and is diffusely echogenic in appearance, consistent with diffuse fatty infiltration with mild hepatic contour irregularity. The resulting increased beam attenuation thereby limiting evaluation of the liver for focal lesions. Within the limitations, no focal lesions are seen. GALLBLADDER: The gallbladder is surgically absent. Sonographic Langley's sign is negative. BILE DUCTS: No evidence of intra or extrahepatic biliary dilatation is identified; the common bile duct measures 0.2. PANCREAS: The pancreas is poorly visualized due to overlying bowel gas. RIGHT KIDNEY: The right kidney measures 8.5 cm in length. The renal cortical echogenicity and thickness are within normal limit. No hydronephrosis or renal calculi are seen. IMPRESSION: Diffusely echogenic liver consistent with hepatic steatosis with mild hepatic contour irregularity, nonspecific, which may reflect early fibrosis/developing cirrhosis. Status post cholecystectomy. MACRO: None Signed by: Duy Harley 01/10/2025 11:54 PM Dictation workstation: [id number] [facility] Work Phone: Radiology Study observation (narrative) [facility] Work Phone: US Abdomen RUQOrdered By: Sharon Harley on 01-10-2025 [facility] Work Phone: US RIGHT UPPER QUADRANTon US RIGHT UPPER QUADRANT Interpreted By: Duy Harley, STUDY: US RIGHT UPPER QUADRANT; 01/10/2025 6:20 pm INDICATION: Signs/Symptoms:Cirrhosis rule out. COMPARISON: 09/22/2024 ACCESSION NUMBER(S): [id number] ORDERING CLINICIAN: HOME DRISCOLL TECHNIQUE: Multiple images of the right upper quadrant were obtained. FINDINGS: LIVER: The liver measures 16.9 and is diffusely echogenic in appearance, consistent with diffuse fatty infiltration with mild hepatic contour irregularity. The resulting increased beam attenuation thereby limiting evaluation of the liver for focal lesions. Within the limitations, no focal lesions are seen. GALLBLADDER: The gallbladder is surgically absent. Sonographic Langley's sign is negative. BILE DUCTS: No evidence of intra or extrahepatic biliary dilatation is identified; the common bile duct measures 0.2. PANCREAS: The pancreas is poorly visualized due to overlying bowel gas. RIGHT KIDNEY: The right kidney measures 8.5 cm in length. The renal cortical echogenicity and thickness are within normal limit. No hydronephrosis or renal calculi are seen. IMPRESSION: Diffusely echogenic liver consistent with hepatic steatosis with mild hepatic contour irregularity, nonspecific, which may reflect early fibrosis/developing cirrhosis. Status post cholecystectomy. MACRO: None Signed by: Duy Harley 01/10/2025 11:54 PM Dictation workstation: [id number] [facility] Absolute lymphocyte countOrd ered By: Babar Wood on 01-09-2025 Lymphocytes Auto (Unsp spec) [#/Vol] 1.80 10*3/uL 0.83-4.51 [facility] Anion gap in Serum or Plasma Ordered By: Babar Wood on 01-09-2025 Anion gap [Moles/Vol] 11 mmol/L 5-15 [facility] Automated lymphocyte count a s percentage of total leukocytesOrdered By: Babar Wood on 01-09-2025 Lymphocytes/100 WBC Auto (Unsp spec) 14.8 % Low 19-41 [facility] BUN/creatinine ratioOrdered By: Babar Wood on 01-09-2025 Urea nitrogen/Creatinine [Mass ratio] 16.1 mg/mg - [facility] Basic Metabolic Profile (BMP )on 01-09-2025 BUN/CRE 16.1 RATIO Normal - [facility] Comment on above: Performed By: #### L 100.0100, L501.5200, L500.2500, L501.4021, L501.9520 ####[facility] [address] [facility] [place], [address] Calcium [Mass/Vol] 9.5 mg/dL Normal 7.6-11.0 [facility] Comment on above: Performed By: #### L 100.0100, L501.5200, L500.2500, L501.4021, L501.9520 ####[facility] [address] [facility] [place], [address] Chloride [Moles/Vol] 104 mmol/L Normal 98-108 [facility] Comment on above: Performed By: #### L 100.0100, L501.5200, L500.2500, L501.4021, L501.9520 ####[facility] [address] [place], [address] CO2 [Moles/Vol] 23.9 mmol/L Normal 21.0-32.0 [facility] Comment on above: Performed By: #### L 100.0100, L501.5200, L500.2500, L501.4021, L501.9520 ####[facility] [address] [place], [address] Creatinine [Mass/Vol] 0.87 mg/dL Normal 0.70-1.20 [facility] Comment on above: Performed By: #### L 100.0100, L501.5200, L500.2500, L501.4021, L501.9520 ####[facility] [address] [place], [address] ECRCL 70.51 ml/min Normal 50-250 [facility] Comment on above: Performed By: #### L 100.0100, L501.5200, L500.2500, L501.4021, L501.9520 ####[facility] [address] [place], [address] GAP 11 Normal 5-15 [facility] Comment on above: Performed By: #### L 100.0100, L501.5200, L500.2500, L501.4021, L501.9520 ####[facility] [address] [place], [address] GFR/1.73 sq M.predicted among non-blacks MDRD (S/P/Bld) [Vol rate/Area] 83 mL/min/{1.73_m2} Normal >60 [facility] Comment on above: Result Comment: mL/m in/1.73m2 CKD-EPI Creatinine Equation (2020) Performed By: #### L 100.0100, L501.5200, L500.2500, L501.4021, L501.9520 ####[facility] [address] [place], [address] Glucose [Mass/Vol] 91 mg/dL Normal 70-99 [facility] Comment on above: Performed By: #### L 100.0100, L501.5200, L500.2500, L501.4021, L501.9520 ####[facility] [address] [place], [address] Potassium [Moles/Vol] 3.7 mmol/L Normal 3.3-5.1 [facility] Comment on above: Performed By: #### L 100.0100, L501.5200, L500.2500, L501.4021, L501.9520 ####[facility] [address] [place], [address] Sodium [Moles/Vol] 138 mmol/L Normal 133-145 [facility] Comment on above: Performed By: #### L 100.0100, L501.5200, L500.2500, L501.4021, L501.9520 ####[facility] [address] [place], [address] Urea nitrogen [Mass/Vol] 14 mg/dL Normal 4-19 [facility] Comment on above: Performed By: #### L 100.0100, L501.5200, L500.2500, L501.4021, L501.9520 ####[facility] [address] [place], [address] Basophil percentageOrdered B y: Babar Wood on 01-09-2025 Basophils/100 WBC (Bld) 0.6 % 0-1 [facility] CBC W/Diff, Automatedon 12-13 Absolute Lymph 1.80 X10 3/uL Normal 0.83-4.51 [facility] Comment on above: Performed By: #### L 100.0100, L501.5200, L500.2500, L501.4021, L501.9520 ####[facility] [address] [place], [address] Absolute Neut 9.5 X10 3/uL High 2.0-7.7 [facility] Comment on above: Performed By: #### L 100.0100, L501.5200, L500.2500, L501.4021, L501.9520 ####[facility] [address] [place], [address] Basophils/100 WBC (Bld) 0.6 % Normal 0-1 [facility] Comment on above: Performed By: #### L 100.0100, L501.5200, L500.2500, L501.4021, L501.9520 ####[facility] [address] [place], [address] Eosinophils/100 WBC (Bld) 1.3 % Normal 0-5 [facility] Comment on above: Performed By: #### L 100.0100, L501.5200, L500.2500, L501.4021, L501.9520 ####[facility] [address] [place], [address] Erythrocyte distribution width (RBC) [Ratio] 14.2 % Normal 11.6-14.6 [facility] Comment on above: Performed By: #### L 100.0100, L501.5200, L500.2500, L501.4021, L501.9520 ####[facility] [address] [place], [address] Hematocrit (Bld) [Volume fraction] 42.9 % Normal 37-47 [facility] Comment on above: Performed By: #### L 100.0100, L501.5200, L500.2500, L501.4021, L501.9520 ####[facility] [address] [place], [address] Hemoglobin (Bld) [Mass/Vol] 13.9 g/dL Normal 12.0-15.0 [facility] Comment on above: Performed By: #### L 100.0100, L501.5200, L500.2500, L501.4021, L501.9520 ####[facility] [address] [place], [address] IG% 0.300 Normal 0.0-0.9 [facility] Comment on above: Result Comment: IG% - Immature Granulocytes (promyelocytes, myelocytes andmetamyelocytes) > 1% indicates that a LEFT SHIFT is Present. Performed By: #### L 100.0100, L501.5200, L500.2500, L501.4021, L501.9520 ####[facility] [address] [place], [address] Lymphocytes/100 WBC (Bld) 14.8 % Low 19-41 [facility] Comment on above: Performed By: #### L 100.0100, L501.5200, L500.2500, L501.4021, L501.9520 ####[facility] [address] [place], [address] MCH (RBC) [Entitic mass] 30.9 pg Normal 27.0-32.0 [facility] Comment on above: Performed By: #### L 100.0100, L501.5200, L500.2500, L501.4021, L501.9520 ####[facility] [address] [place], [address] MCHC (RBC) [Mass/Vol] 32.4 g/dL Normal 32-36 [facility] Comment on above: Performed By: #### L 100.0100, L501.5200, L500.2500, L501.4021, L501.9520 ####[facility] [address] [place], [address] MCV (RBC) [Entitic vol] 95.3 fL Normal 81-99 [facility] Comment on above: Performed By: #### L 100.0100, L501.5200, L500.2500, L501.4021, L501.9520 ####[facility] [address] [place], [address] Monocytes/100 WBC (Bld) 5.1 % Normal 0-10 [facility] Comment on above: Performed By: #### L 100.0100, L501.5200, L500.2500, L501.4021, L501.9520 ####[facility] [address] [place], [address] Neutrophils/100 WBC (Bld) 77.9 % High 47-70 [facility] Comment on above: Performed By: #### L 100.0100, L501.5200, L500.2500, L501.4021, L501.9520 ####[facility] [address] [place], [address] Nucleated RBC (Bld) [#/Vol] 0 10*3/uL Normal 0-5 [facility] Comment on above: Performed By: #### L 100.0100, L501.5200, L500.2500, L501.4021, L501.9520 ####[facility] [address] [place], [address] Platelet mean volume (Bld) [Entitic vol] 9.7 fL Normal 6.2-12.0 [facility] Comment on above: Performed By: #### L 100.0100, L501.5200, L500.2500, L501.4021, L501.9520 ####[facility] [address] [place], [address] Platelets (Bld) [#/Vol] 302 10*3/uL Normal 150-450 [facility] Comment on above: Performed By: #### L 100.0100, L501.5200, L500.2500, L501.4021, L501.9520 ####[facility] [address] [place], [address] RBC (Bld) [#/Vol] 4.50 10*6/uL Normal 4.2-5.4 [facility] Comment on above: Performed By: #### L 100.0100, L501.5200, L500.2500, L501.4021, L501.9520 ####[facility] [address] [place], [address] RDW SD 49.5 fl High 35.1-43.9 [facility] Comment on above: Performed By: #### L 100.0100, L501.5200, L500.2500, L501.4021, L501.9520 ####[facility] [address] [place], [address] WBC (Bld) [#/Vol] 12.2 10*3/uL High 4.4-11.0 [facility] Comment on above: Performed By: #### L 100.0100, L501.5200, L500.2500, L501.4021, L501.9520 ####[facility] [address] [place], [address] CBC panel Auto (Bld)on 01-09 Erythrocyte distribution width (RBC) [Ratio] 14.4 % 11.5 - 14.5 % [facility] Hematocrit (Bld) [Volume fraction] 42.0 % 36.0 - 46.0 % [facility] Hemoglobin (Bld) [Mass/Vol] 13.5 g/dL 12.0 - 16.0 g/dL [facility] Interpretation and review of laboratory results Abnormal [facility] MCH (RBC) [Entitic mass] 31.5 pg 26. 0 - 34.0 pg [facility] MCHC (RBC) [Mass/Vol] 32.1 g/dL 32.0 - 36.0 g/dL [facility] MCV (RBC) [Entitic vol] 98 fL 80 - 100 fL [facility] Nucleated RBC/100 WBC (Bld) [Ratio] 0.0 % [facility] Platelets (Bld) [#/Vol] 291 10*3/uL [facility] RBC (Bld) [#/Vol] 4.29 10*6/uL [facility] WBC (Bld) [#/Vol] 14.1 10*3/uL High [facility] Erythrocyte distribution width (RBC) [Ratio] 14.4 % Normal 11.5-14.5 [facility] Comment on above: Performed By: #### 5 8410-2 #### SAMARIA CHAO ([id number]) [facility] ([facility]) [address] [place] [address] Hematocrit (Bld) [Volume fraction] 42.0 % Normal 36.0-46.0 [facility] Comment on above: Performed By: #### 5 8410-2 #### SAMARIA CHAO ([id number]) [facility] ([facility]) [address] [place] [address] Hemoglobin (Bld) [Mass/Vol] 13.5 g/dL Normal 12.0-16.0 [facility] Comment on above: Performed By: #### 5 8410-2 #### SAMARIA CHAO ([id number]) [facility] ([facility]) [address] [place] [address] MCH (RBC) [Entitic mass] 31.5 pg Normal 26.0-34.0 [facility] Comment on above: Performed By: #### 5 8410-2 #### SAMARIA CHAO ([id number]) [facility] ([facility]) [address] [place] [address] MCHC (RBC) [Mass/Vol] 32.1 g/dL Normal 32.0-36.0 [facility] Comment on above: Performed By: #### 5 8410-2 #### SAMARIA CHAO ([id number]) [facility] ([facility]) [address] [place] [address] MCV (RBC) [Entitic vol] 98 fL Normal 80-100 U [facility] Comment on above: Performed By: #### 5 8410-2 #### SAMARIA CHAO ([id number]) [facility] ([facility]) [address] [place] [address] Nucleated RBC/100 WBC (Bld) [Ratio] 0.0 /100 WBCs Normal 0.0-0.0 [facility] Comment on above: Performed By: #### 5 8410-2 #### SAMARIA CHAO ([id number]) [facility] ([facility]) [address] [place] [address] Platelets (Bld) [#/Vol] 291 x10*3/uL Normal 150-450 [facility] Comment on above: Performed By: #### 5 8410-2 #### SAMARIA CHAO ([id number]) [facility] ([facility]) [address] [place] [address] RBC (Bld) [#/Vol] 4.29 x10*6/uL Normal 4.00-5.20 [facility] Comment on above: Performed By: #### 5 8410-2 #### SAMARIA CHAO ([id number]) [facility] ([facility]) [address] [place] [address] WBC (Bld) [#/Vol] 14.1 x10*3/uL High 4.4-11.3 [facility] Comment on above: Performed By: #### 5 8410-2 #### SAMARIA CHAO ([id number]) [facility] ([facility]) [address] [place] [address] Carbon dioxide, total [Moles /volume] in Central venous bloodOrdered By: Babar Wood on 01-09-2025 CO2 [Moles/Vol] 23.9 mmol/L 21.0-32.0 [facility] Chest 1 View (Portable)on Chest 1 View (Portable) Normal [facility] Chloride assayOrdered By: Jennifer Wood on 01-09-2025 Chloride [Moles/Vol] 104 mmol/L 98-108 [facility] Comprehensive metabolic 2000 panelon 01-09-2025 Albumin BCP dye [Mass/Vol] 4.3 g/dL 3.4 - 5.0 g/dL [facility] ALP [Catalytic activity/Vol] 125 U/L High 33 - 110 U/L [facility] ALT With P-5'-P [Catalytic activity/Vol] 110 U/L High 7 - 45 U/L [facility] Comment on above: Patients treated wit h Sulfasalazine may generate falsely decreased results for ALT. Anion gap [Moles/Vol] 11 mmol/L 10 - 2 0 mmol/L [facility] AST With P-5'-P [Catalytic activity/Vol] 232 U/L High 9 - 39 U/L [facility] Bilirubin [Mass/Vol] 1.1 mg/dL 0.0 - 1 .2 mg/dL [facility] Calcium [Mass/Vol] 9.3 mg/dL 8.6 - 10. 3 mg/dL [facility] Chloride [Moles/Vol] 108 mmol/L High 98 - 10 7 mmol/L [facility] CO2 [Moles/Vol] 21 mmol/L 21 - 32 mmol/L [facility] Comment on above: Bicarbonate results may be falsely elevated when Lactate Dehydrogenase (LDH) concentrations exceed 2,000 U/L due to a temporary reagent manufacturing issue. If significantly elevated LDH levels are suspected, interpret bicarbonate results with caution, correlate with the patient s clinical status, and consider confirming CO2 values using a blood gas analyzer. Creatinine [Mass/Vol] 0.76 mg/dL 0.50 - 1.05 mg/dL [facility] eGFR - PINF [facility] Comment on above: Calculations of vidal mated GFR are performed using the 2020 CKD-EPI Study Refit equation without the race variable for the IDMS-Traceable creatinine methods. https://jasn.asnjournals.org/content//ASN.875 9963416 Glucose [Mass/Vol] 98 mg/dL 74 - 99 mg/dL [facility] Interpretation and review of laboratory results Abnormal [facility] Potassium [Moles/Vol] 3.8 mmol/L 3.5 - 5.3 mmol/L [facility] Protein [Mass/Vol] 6.8 g/dL 6.4 - 8.2 g/dL [facility] Sodium [Moles/Vol] 136 mmol/L 136 - 145 mmol/L [facility] Urea nitrogen [Mass/Vol] 13 mg/dL 6 - 23 mg/dL [facility] Albumin BCP dye [Mass/Vol] 4.3 g/dL Normal 3.4-5.0 [facility] Comment on above: Performed By: #### 2 4323-8 #### SAMARIA CHAO ([id number]) [facility] ([facility]) [address] [place] [address] ALP [Catalytic activity/Vol] 125 U/L High 33-110 [facility] Comment on above: Performed By: #### 2 4323-8 #### SAMARIA CHAO ([id number]) [facility] ([facility]) [address] [place] [address] ALT With P-5'-P [Catalytic activity/Vol] 110 U/L High 7-45 [facility] Comment on above: Result Comment: Makayla ents treated with Sulfasalazine may generate falsely decreased results for ALT. Performed By: #### 2 4323-8 #### SAMAIRA CHAO ([id number]) [facility] ([facility]) [address] [place] [address] Anion gap [Moles/Vol] 11 mmol/L Normal 10-20 [facility] Comment on above: Performed By: #### 2 4323-8 #### SAMARIA CHAO ([id number]) [facility]) [address] [place] [address] AST With P-5'-P [Catalytic activity/Vol] 232 U/L High 9-39 [facility] Comment on above: Performed By: #### 2 4323-8 #### SAMARIA CHAO ([id number]) [facility] ([facility]) [address] [place] [address] Bilirubin [Mass/Vol] 1.1 mg/dL Normal 0.0-1.2 [facility] Comment on above: Performed By: #### 2 4323-8 #### SAMARIA CHAO ([id number]) [facility]) [address] [place] [address] Calcium [Mass/Vol] 9.3 mg/dL Normal 8.6-10.[address] [facility] Comment on above: Performed By: #### 2 4323-8 #### SAMARIA CHAO ([id number]) [facility]) [address] [place] [address] Chloride [Moles/Vol] 108 mmol/L High 98-107 [facility] Comment on above: Performed By: #### 2 4323-8 #### SAMARIA CHAO ([id number]) [facility]) [address] [place] [address] CO2 [Moles/Vol] 21 mmol/L Normal 21-32 [facility] Comment on above: Result Comment: Bica rbonate results may be falsely elevated when Lactate Dehydrogenase (LDH) concentrations exceed 2,000 U/L due to a temporary reagent manufacturing issue. If significantly elevated LDH levels are suspected, interpret bicarbonate results with caution, correlate with the patient's clinical status, and consider confirming CO2 values using a blood gas analyzer. Performed By: #### 2 4323-8 #### SAMARIA CHAO ([id number]) [facility] ([facility]) [address] [place] [address] Creatinine [Mass/Vol] 0.76 mg/dL Normal 0.50-1.05 [facility] Comment on above: Performed By: #### 2 4323-8 #### SAMARIA CHAO ([id number]) [facility]) [address] [place] [address] Glomerular filtration rate >90 Normal >60 [facility] Comment on above: Result Comment: Calc ulations of estimated GFR are performed using the 2020 CKD-EPI Study Refit equation without the race variable for the IDMS-Traceable creatinine methods. https://jasn.asnjournals.org/content/early//ASN.998 2067308 Performed By: #### 2 4323-8 #### SAMARIA CHAO ([id number]) [facility] ([facility]) [address] [place] [address] Glucose [Mass/Vol] 98 mg/dL Normal 74-[address] [facility] [address] [facility] Comment on above: Performed By: #### 2 4323-8 #### SAMARIA CHAO ([id number]) [facility] ([facility]) [address] [place] [address] Potassium [Moles/Vol] 3.8 mmol/L Normal 3.5-5.3 [facility] Comment on above: Performed By: #### 2 4323-8 #### SAMARIA CHAO ([id number]) [facility] ([facility]) [address] [place] [address] Protein [Mass/Vol] 6.8 g/dL Normal 6.4-8.[address] [facility] Comment on above: Performed By: #### 2 4323-8 #### SAMARIA CHAO ([id number]) [facility] ([facility]) [address] [place] [address] Sodium [Moles/Vol] 136 mmol/L Normal 136-[address] [facility] Comment on above: Performed By: #### 2 4323-8 #### SAMARIA CHAO ([id number]) [facility] ([facility]) [address] [place] [address] Urea nitrogen [Mass/Vol] 13 mg/dL Normal 6-23 [facility] Comment on above: Performed By: #### 2 4323-8 #### SAMARIA CHAO ([id number]) [facility]) [address] [place] [address] ECG 12-LEADon 01-09-2025 ECG 12-LEAD Ventricular Rate 69 Atrial Rate 69 P-R Interval 166 QRS Duration 92 Q-T Interval 440 QTC Calculation(Bazett) 471 P Morganza 6 R Morganza -66 T Morganza 86 QRS Count 11 Q Onset 211 P Onset 128 P Offset 196 T Offset 431 QTC Fredericia 461 Diagnosis Normal sinus rhythm Biatrial enlargement Left anterior fascicular block Nonspecific ST and T wave abnormality Abnormal ECG When compared with ECG of 09-JAN-2025 22:27, (unconfirmed) No significant change was found Confirmed by Theodore Rojas ([id number]) on 01/10/2025 9:58:04 AM Normal [facility] ECG 12-LEAD Ventricular Rate 56 Atrial Rate 56 P-R Interval 180 QRS Duration 102 Q-T Interval 476 QTC Calculation(Bazett) 459 P Morganza 2 R Morganza -65 T Morganza 82 QRS Count 10 Q Onset 211 P Onset 121 P Offset 187 T Offset 449 QTC Fredericia 465 Diagnosis Sinus bradycardia Possible Left atrial enlargement Incomplete right bundle branch block Left anterior fascicular block Abnormal ECG When compared with ECG of 09-JAN-2025 11:26, (unconfirmed) No significant change was found Confirmed by Theodore Rojas ([id number]) on 01/11/2025 11:31:15 AM Normal [facility] Electrophysiology studyon Addendum by Theodore Rojas MD on 01/09/2025 6:09 PM EDT Images from the original result were not included. Dual chamber implantable cardioverter defibrillator implantation Procedures: New ICD, single or dual with leads (74523), ICD Pocket revision (86443-56) Removal of single-chamber ICD generator without replacement (02785) Patient history: Please refer to the detailed history and physical on the patient's medical chart. Procedure narrative: The patient was in the fasting state. The patient was set up for continuous monitoring of surface 12 lead ECG and pulse oximetry. Blood pressure was monitored. The procedure was performed under IV conscious sedation supplemented with intermittent moderate sedation. The Right upper chest was prepped and draped in the usual sterile fashion. Local anesthesia: After preoperative IV antibiotic was completely infused, subcutaneous tissues just medial to the Right deltopectoral area, were infiltrated with Lidocaine 1% with Bupivacaine 0.25% for local anesthesia. Using a #15 scalpel, an incision was made, which was extended to the left prepectoral fascia using blunt dissection. The area of the prior implant was investigated and pocket was created to allow for access into the vasculature but also gain access to the previously implanted pulse generator A venogram was obtained using 10cc of contrast via the right arm peripheral IV. The images were used to guide access. Under Fluoroscopic a Micropuncture needle was used to access the Right Brachiocephalic vein using Seldinger technique. Given patient's unclear history of allergic reaction to contrast patient was given 125 mg IV Solu-Medrol and 50 mg IV Benadryl prior to contrast administration Initially there was significant looping and scar noted along the pocket and and the leads were looped with tight loops. Careful use of bipolar cautery was done to avoid lead damage and the loops were freed up to allow access to the device and also posterior aspect of the pocket was removed. This also allowed for expansion of the ICD pocket to accommodate the new device and allow for our pocket revision. A 7F sheath was advanced over the guidewire, and the dilator and guidewire were removed. Under fluoroscopic guidance, a pacing lead was advanced to the heart, and the atrium was mapped. The lead was fixed to the right atrial appendage. Lead was positioned a total of 1 time(s) to get optimal lead parameters for its final location. After lead placement, appropriate sensing and thresholds were obtained. After lead placement, appropriate sensing and thresholds were obtained. The sheath was peeled away. The lead was sutured in place to the pectoralis muscle using x3 of ties. Both the new right atrial lead and the old existing RV ICD lead was connected to a new pulse generator and lead parameters were all tested. Lead parameters for the RV ICD lead were stable and unchanged from baseline. The device was interrogated and its parameters recorded; telemetered electrograms and pacing and sensing thresholds were measured. DFT was not performed. The pocket was flushed with Irricept solution. Wound hemostasis was obtained with electrocautery and FlowSeal. The wound was closed in three layers using #2-0 and #3-0 Vicryl. The skin was approximated with subcuticular suture (#4-0 Monocryl) and skin adhesive. Steri-strips were applied, and the incision covered with a sterile dressing. Manual pressure was applied. Summary: Successful upgrade of a Medtronic right-sided single-chamber ICD to a dual-chamber ICD with the addition of right atrial lead and a new pulse generator, ICD pocket revision Final Implant Settings: Tachy Settings: ON Post implant device parameters scanned into the system Recommendations: Patient planned for inpatient Tikosyn loading for atrial fibrillation rhythm management - first dose of 250mcg Tonight @2000 Additional dose of antibiotics in 12 hours: Vancomycin IV in a.m. and continue antibiotic therapy as per ID recommendations No Heparin/Lovenox/Anticoag ulation until cleared by EP please A PA-lateral chest X-ray should be performed and telemetry monitoring continued for 24 hours. A 12 lead ECG should be performed prior to discharge from the hospital. Resume rest of home medications Patient Instructions: Please do not lift left arm above shoulder level for 4-5 weeks No repetitive motion or lifting heavy weight for 4-5 weeks No alcohol or making legal decisions for 24 hours. Ok to take tylenol for any discomfort after the procedure Keep wound completely dry for 7 days; may shower but keep bandage as dry as possible. No soaking in hot tubs or baths for 10 days. May sponge bath Keep bandage on incision until seen in the office in 1 week. Allow steristrips underneath to fall off naturally. Please call our office ([facility]: [phone]) if you notice an (more content not included)... [facility] Work Phone: [facility] Work Phone: Emergency Department Summary on 01-09-2025 Emergency Department Summary Normal [facility] Eosinophil percentageOrdered By: Babar Wood on 01-09-2025 Eosinophils/100 WBC (Bld) 1.3 % 0-5 [facility] Erythrocyte distribution wid th ratioOrdered By: Babar Wood on 01-09-2025 Erythrocyte distribution width (RBC) [Ratio] 14.2 % 11.6-14.6 [facility] Erythrocyte distribution wid th standard deviationOrdered By: Babar Wood on 01-09-2025 Erythrocyte distribution width (RBC) [Ratio] 49.5 fl High 35.1-43.9 [facility] Ethanolon 01-09-2025 Ethanol [Mass/Vol] mg/dL NINF - 10 mg/dL [facility] Comment on above: For medical use only . Ethanol [Mass/Vol] mg/dL Normal <=[address] [facility] Comment on above: Result Comment: For medical use only. Performed By: #### 5 643-2 #### SAMARIA CHAO ([id number]) [facility] ([facility]) [address] [place] [address] Ethanol [Mass/Vol]on Interpretation and review of laboratory results Normal [facility] Free T4 [Mass/Vol]on Interpretation and review of laboratory results Normal [facility] Thyroxine Free testi ng is performed using different testing methodology at [facility] than at other [facility]. Direct result comparisons should only be made within the same method. [facility] Glomerular filtration rate ( GFR) estimation/1.73 sq m using serum, plasma, or whole bOrdered By: Babar Wood on 01-09-2025 GFR/1.73 sq M.predicted among non-blacks MDRD (S/P/Bld) [Vol rate/Area] 83 mL/min/{1.73_m2} >60 [facility] Hematocrit Auto (Bld) [Volum e fraction]Ordered By: Babar Wood on 01-09-2025 Hematocrit (Bld) [Volume fraction] 42.9 % 37-47 [facility] Hemoglobin measurementOrdere d By: Babar Wood on 01-09-2025 Hemoglobin (Bld) [Mass/Vol] 13.9 g/dL 12.0-15.0 [facility] Immature granulocytes/100 WB C Auto (Bld)Ordered By: Babar Wood on 01-09-2025 Immature granulocytes/100 WBC (Bld) 0.300 % 0.0-0.9 [facility] L501.4021on 01-09-2025 Trop T High Sen 32 ng/L High <=14 [facility] Comment on above: Performed By: #### L 100.0100, L501.5200, L500.2500, L501.4021, L501.9520 ####[facility] [id number] [place], [place], [id number] MCV (mean corpuscular volume ) determinationOrdered By: Babar Wood on 01-09-2025 MCV (RBC) [Entitic vol] 95.3 fL 81-99 [facility] Magnesiumon 01-09-2025 Magnesium [Mass/Vol] 1.84 mg/dL 1.60 - 2.40 mg/dL [facility] Magnesium [Mass/Vol] 1.84 mg/dL Normal 1.60-2.40 [facility] Comment on above: Performed By: #### 1 9123-9 #### SAMARIA ZHANNA ([id number]) [facility] ([facility]) [address] [place] [address] Magnesium [Mass/Vol] 2.0 mg/dL Normal 1.5-2.2 [facility] Comment on above: Performed By: #### L 100.0100, L501.5200, L500.2500, L501.4021, L501.9520 ####[facility] [id number] [place], [address] Magnesium [Mass/Vol]on 01-09 Interpretation and review of laboratory results Normal [facility] Magnesium measurement (mass/ volume)Ordered By: Babar Wood on 01-09-2025 Magnesium (Unsp spec) [Mass/Vol] 2.0 mg/dL 1.5-2.2 [facility] Mean corpuscular hemoglobin (MCH) determinationOrdered By: Babar Wood on 01-09-2025 MCH (RBC) [Entitic mass] 30.9 pg 27.0-32.0 [facility] Monocyte percentageOrdered B y: Babar Wood on 01-09-2025 Monocytes/100 WBC (Bld) 5.1 % 0-10 [facility] Natriuretic peptide B [Mass/ Vol]on 01-09-2025 Interpretation and review of laboratory results Abnormal [facility] Natriuretic peptide B (Bld) [Mass/Vol] 812 pg/mL High 0 - 99 pg/mL [facility] <100 pg/mL - Heart failure unlikely 100-299 pg/mL - Intermediate probability of acute heart failure exacerbation. Correlate with clinical context and patient history. >=300 pg/mL - Heart Failure likely. Correlate with clinical context and patient history. BNP testing is performed using different testing methodology at [facility] than at other [facility]. Direct result comparisons should only be made within the same method. [facility] Natriuretic peptide B (Bld) [Mass/Vol] 812 pg/mL High 0-99 [facility] Comment on above: Order Comment: <100 pg/mL - Heart failure unlikely 100-299 pg/mL - Intermediate probability of acute heart failure exacerbation. Correlate with clinical context and patient history. >=300 pg/mL - Heart Failure likely. Correlate with clinical context and patient history. BNP testing is performed using different testing methodology at [facility] than at other [facility]. Direct result comparisons should only be made within the same method. Performed By: #### 3 0934-4 #### SAMARIA CHAO ([id number]) [facility] ([facility]) [address] [place] [address] Neutrophil percentageOrdered By: Babar Wood on 01-09-2025 Neutrophils/100 WBC (Bld) 77.9 % High 47-70 [facility] Platelet countOrdered By: Jennifer Wood on 01-09-2025 Platelets (Bld) [#/Vol] 302 10*3/uL 150-450 [facility] Potassium measurement (mass/ volume)Ordered By: Babar Wood on 01-09-2025 Potassium (Unsp spec) [Mass/Vol] 3.7 mmol/L 3.3-5.1 [facility] RBC Auto (Bld) [#/Vol]Ordere d By: Babar Wood on 01-09-2025 RBC (Bld) [#/Vol] 4.50 10*6/uL 4.2-5.4 [facility] Serum creatinine measurement (mass/volume)Ordered By: Babar Wood on 01-09-2025 Creatinine [Mass/Vol] 0.87 mg/dL 0.70-1.20 [facility] Serum glucose measurement (m ass/volume)Ordered By: Babar Wood on 01-09-2025 Glucose [Mass/Vol] 91 mg/dL 70-99 [facility] Serum or plasma calcium leslie urement (mass/volume)Ordered By: Babar Wood on 01-09-2025 Calcium [Mass/Vol] 9.5 mg/dL 7.6-11.0 [facility] Serum or plasma urea nitroge n measurement (mass/volume)Ordered By: Babar Wood on 01-09-2025 Urea nitrogen [Mass/Vol] 14 mg/dL 4-19 [facility] Sodium levelOrdered By: Lukas Wood on 01-09-2025 Sodium [Moles/Vol] 138 mmol/L 133-145 [facility] TRANSTHORACIC ECHO (TTE) CAIO ITEDon 01-09-2025 TRANSTHORACIC ECHO (TTE) [facility], [address] [place] [address] and TRANSTHORACIC ECHOCARDIOGRAM REPORT Patient Name: MICHELLE MITCHELL Reading Physician: [id number] Edgardo Mullins MD Study Date: 01/09/2025 Ordering Provider: [id number] MARILEE SHEIKH MRN/PID: [id number] Fellow: Nurse: Date of /Age: 7 1980 / 44 years Search Analyst: Danita Beckford RDCS Gender assigned at Additional Staff: : Height: 162.00 cm Admit Date: 01/09/2025 Weight: 57.00 kg Admission Status: Inpatient - Routine BSA / BMI: 1.60 m2 / 21.72 kg/m2 Blood Pressure: 133/79 mmHg Department Location: [address] Study Type: TRANSTHORACIC ECHO (TTE) LIMITED Diagnosis/ICD: Encounter for other specified special examinations-Z01.89 Indication: reassess LV function, HCM - please include LVOT Gradient; CPT Code: Echo Limited-40929; Color Doppler-69654; Doppler Limited-19608 Patient History: Pertinent History: MH of HOCM, HFrEF (EF 40% as of 09/21/24) s/p ICD placement, DVT/PE 2017, PUD, GERD, tobacco use dependence, breast cancer s/p lumpectomy and chemotherapy, ovarian cancer s/p oophorectomy, endometrial cancer s/p ablation, biliary duct obstruction s/p stent placement, anxiety, depression, and migraines. Study Detail: The following Echo studies were performed: 2D, M-Mode, Doppler and color flow. Technically challenging study due to body habitus. PHYSICIAN INTERPRETATION: Left Ventricle: Left ventricular ejection fraction is mildly decreased by visual estimate at 45-50%. There is moderate left ventricular hypertrophy. There is global hypokinesis of the left ventricle with minor regional variations. The left ventricular cavity size is normal. There is moderately increased septal and mildly increased posterior left ventricular wall thickness. Left ventricular diastolic filling is indeterminate. Left Atrium: The left atrial size is moderate to severely dilated. Right Ventricle: The right ventricle is normal in size. There is normal right ventricular global systolic function. A device is visualized in the right ventricle. Right Atrium: The right atrium is normal in size. There is a device visualized in the right atrium. Aortic Valve: The aortic valve is trileaflet. The peak and mean gradients are 5 mmHg and 3 mmHg, respectively with a dimensionless index of 0.85. There is mild aortic valve thickening. There is no evidence of aortic valve regurgitation. Mitral Valve: The mitral valve is mildly thickened. There is trace mitral valve regurgitation. The E Vmax is 0.29 m/s. Tricuspid Valve: The tricuspid valve is structurally normal. There is trace to mild tricuspid regurgitation. The Doppler estimated right ventricular systolic pressure (RVSP) is mildly elevated at 39 mmHg. Pulmonic Valve: The pulmonic valve is structurally normal. There is no indication of pulmonic valve regurgitation. Pericardium: There is no pericardial effusion noted. Aorta: The aortic root is normal. Systemic Veins: The inferior vena cava appears normal in size, with IVC inspiratory collapse greater than 50%. CONCLUSIONS: 1. Left ventricular ejection fraction is mildly decreased by visual estimate at 45-50%. 2. There is global hypokinesis of the left ventricle with minor regional variations. 3. Left ventricular diastolic filling is indeterminate. 4. There is moderately increased septal thickness. 5. There is moderate left ventricular hypertrophy. 6. There is normal right ventricular global systolic function. 7. The left atrial size is moderate to severely dilated. 8. The Doppler estimated RVSP is mildly elevated at 39 mmHg. QUANTITATIVE DATA SUMMARY: 2D MEASUREMENTS: Normal Ranges: IVSd: 1.30 cm (0.6-1.1cm) LVPWd: 1.00 cm (0.6-1.1cm) LVIDd: 4.80 cm (3.9-5.9cm) LVIDs: 3.30 cm LV Mass Index: 129 g/m2 LVEDV Index: 60 ml/m2 LV % FS 31.2 % LV SYSTOLIC FUNCTION: Normal Ranges: EF-A4C View: 57 % (>=55%) EF-A2C View: 30 % EF-Biplane: 46 % EF-Visual: 48 % LV EF Reported: 48 % LV DIASTOLIC FUNCTION: Normal Ranges: MV Peak E: 0.29 m/s (0.7-1.2 m/s) MV Peak A: 0.29 m/s (0.42-0.7 m/s) E/A Ratio: 0.98 (1.0-2.2) MV e' 0.040 m/s (>8.0) MV lateral e' 0.04 m/s MV medial e' 0.04 m/s MV A Dur: 151.00 msec E/e' Ratio: 7.10 (<8.0) PulmV Sys Carrington: 38.90 cm/s PulmV Hensley Carrington: 22.30 cm/s PulmV S/D Carrington: 1.70 PulmV A Revs Carrington: 19.00 cm/s PulmV A Revs Dur: 161.00 msec MITRAL VALVE: Normal Ranges: MV DT: 363 msec (150-240msec) AORTIC VALVE: Normal Ranges: AoV Vmax: 1.11 m/s (<=1.7m/s) AoV Peak P.9 mmHg (<20mmHg) AoV Mean P.0 mmHg (1.7-11.5mmHg) LVOT Max Carrington: 1.00 m/s (<=1.1m/s) AoV VTI: 22.00 cm (18-25cm) LVOT VTI: 18.70 cm AoV Dimensionless Index: 0.85 RIGHT VENTRICLE: TAPSE: 17.2 mm RV s' 0.09 m/s TRICUSPID VALVE/RVSP: Normal Ranges: Peak TR Velocity: 3.02 m/s Est. RA Pressure: 3 RV Syst Pressure (more content not included)... Normal [facility] TSH DL <= 0.005 mIU/L QnOrde red By: Babar Wood on 01-09-2025 TSH Qn 3.270 uIU/mL 0.300-4.20 0 [facility] TSH WITH REFLEX TO FREE T4 I F ABNORMALon 01-09-2025 TSH Qn 4.82 m[IU]/L High 0.44-3.98 [facility] Comment on above: Order Comment: TSH t esting is performed using different testing methodology at [facility] than at other system [employer]. Direct result comparisons should only be made within the same method. Performed By: #### T JHONNY #### SAMARIA CHAO ([id number]) [facility] ([facility]) [address] [place] [address] TSH with reflex to Free T4 i f abnormalon 01-09-2025 Interpretation and review of laboratory results Abnormal [facility] TSH Qn 4.82 m[IU]/L High [facility] TSH testing is perfo rmed using different testing methodology at [facility] than at other [facility]. Direct result comparisons should only be made within the same method. [facility] Thyroid Stim Hormone (TSH)on 01-09-2025 TSH 3.270 uIU/mL Normal 0.300-4.20 0 [facility] Comment on above: Performed By: #### L 100.0100, L501.5200, L500.2500, L501.4021, L501.9520 ####[facility] [id number] [place], [place], [address] Thyroxine, Freeon 01-09-2025 Free T4 [Mass/Vol] 1.01 ng/dL 0.61 - 1.12 ng/dL [facility] Thyroxine.freeon 01-09-2025 Free T4 [Mass/Vol] 1.01 ng/dL Normal 0.61-1.[address] [facility] Comment on above: Order Comment: Thyro xine Free testing is performed using different testing methodology at [facility] than at other [facility]. Direct result comparisons should only be made within the same method. Performed By: #### 3 024-7 ###Kim CHAO ([id number]) [facility] ([facility]) [address] [place] [address] Troponin T HS 2 HRon 025 Trop T High Sen 35 ng/L High <=14 [facility] Comment on above: Result Comment: Hemo lysis present, Results??could be affected.?? Performed By: #### L 499.0042 ####[facility] [id number] [place], [address] Troponin T.cardiac [Mass/vol ume] in Serum or Plasma by High sensitivity methodOrdered By: Babar Wood on 01-09-2025 Troponin T.cardiac High sensitivity method [Mass/Vol] 35 ng/L High <14 [facility] Troponin T.cardiac High sensitivity method [Mass/Vol] 32 ng/L High <14 [facility] Heart TransthoracicOrdere d By: Edgardo Mullins on 01-09-2025 AV mn grad 3 mmHg [facility] Work Phone: [phone] AV pk grad 5 mmHg [facility] Work Phone: [phone] AV pk carrington 1.11 m/s [facility] Work Phone: [phone] LV A4C EF 57.3 [facility] Work Phone: [phone] LV EF 48 % [facility] Work Phone: [phone] LVIDd 4.80 cm [facility] Work Phone: [phone] MV E/A ratio 0.98 [facility] Work Phone: [phone] RV free wall pk S' 8.81 cm/s [facility] Work Phone: [phone] RVSP 39 mmHg [facility] Work Phone: [phone] Tricuspid annular plane systolic excursion 1.7 cm [facility] Work Phone: [phone] [facility] Work Phone: [phone] Heart Transthoracicon CONCLUSIONS: 1. Left ventricular ejection fraction is mildly decreased by visual estimate at 45-50%. 2. There is global hypokinesis of the left ventricle with minor regional variations. 3. Left ventricular diastolic filling is indeterminate. 4. There is moderately increased septal thickness. 5. There is moderate left ventricular hypertrophy. 6. There is normal right ventricular global systolic function. 7. The left atrial size is moderate to severely dilated. 8. The Doppler estimated RVSP is mildly elevated at 39 mmHg. [facility], [address] [address] and TRANSTHORACIC ECHOCARDIOGRAM REPORT Patient Name: MICHELLE Angelo MITCHELL Reading Physician: [id number] Edgardo Mullins MD Study Date: 01/09/2025 Ordering Provider: [id number] MARILEE L SALVATORE MRN/PID: [id number] Fellow: Nurse: Date of /Age: 7 1980 / 44 years Search Analyst: Danita Beckford [facility] Gender assigned at F Additional Staff: : Height: 162.00 cm Admit Date: 01/09/2025 Weight: 57.00 kg Admission Status: Inpatient - Routine BSA / BMI: 1.60 m2 / 21.72 kg/m2 Blood Pressure: 133/79 mmHg Department Location: [facility] Study Type: TRANSTHORACIC ECHO (TTE) LIMITED Diagnosis/ICD: Encounter for other specified special examinations-Z01.89 Indication: reassess LV function, HCM - please include LVOT Gradient; CPT Code: Echo Limited-04472; Color Doppler-78847; Doppler Limited-23430 Patient History: Pertinent History: MH of HOCM, HFrEF (EF 40% as of 09/21/24) s/p ICD placement, DVT/PE 2017, PUD, GERD, tobacco use dependence, breast cancer s/p lumpectomy and chemotherapy, ovarian cancer s/p oophorectomy, endometrial cancer s/p ablation, biliary duct obstruction s/p stent placement, anxiety, depression, and migraines. Study Detail: The following Echo studies were performed: 2D, M-Mode, Doppler and color flow. Technically challenging study due to body habitus. PHYSICIAN INTERPRETATION: Left Ventricle: Left ventricular ejection fraction is mildly decreased by visual estimate at 45-50%. There is moderate left ventricular hypertrophy. There is global hypokinesis of the left ventricle with minor regional variations. The left ventricular cavity size is normal. There is moderately increased septal and mildly increased posterior left ventricular wall thickness. Left ventricular diastolic filling is indeterminate. Left Atrium: The left atrial size is moderate to severely dilated. Right Ventricle: The right ventricle is normal in size. There is normal right ventricular global systolic function. A device is visualized in the right ventricle. Right Atrium: The right atrium is normal in size. There is a device visualized in the right atrium. Aortic Valve: The aortic valve is trileaflet. The peak and mean gradients are 5 mmHg and 3 mmHg, respectively with a dimensionless index of 0.85. There is mild aortic valve thickening. There is no evidence of aortic valve regurgitation. Mitral Valve: The mitral valve is mildly thickened. There is trace mitral valve regurgitation. The E Vmax is 0.29 m/s. Tricuspid Valve: The tricuspid valve is structurally normal. There is trace to mild tricuspid regurgitation. The Doppler estimated right ventricular systolic pressure (RVSP) is mildly elevated at 39 mmHg. Pulmonic Valve: The pulmonic valve is structurally normal. There is no indication of pulmonic valve regurgitation. Pericardium: There is no pericardial effusion noted. Aorta: The aortic root is normal. Systemic Veins: The inferior vena cava appears normal in size, with IVC inspiratory collapse greater than 50%. CONCLUSIONS: 1. Left ventricular ejection fraction is mildly decreased by visual estimate at 45-50%. 2. There is global hypokinesis of the left ventricle with minor regional variations. 3. Left ventricular diastolic filling is indeterminate. 4. There is moderately increased septal thickness. 5. There is moderate left ventricular hypertrophy. 6. There is normal right ventricular global systolic function. 7. The left atrial size is moderate to severely dilated. 8. The Doppler estimated RVSP is mildly elevated at 39 mmHg. QUANTITATIVE DATA SUMMARY: 2D MEASUREMENTS: Normal Ranges: IVSd: 1.30 cm (0.6-1.1cm) LVPWd: 1.00 cm (0.6-1.1cm) LVIDd: 4.80 cm (3.9-5.9cm) LVIDs: 3.30 cm LV Mass Index: 129 g/m2 LVEDV Index: 60 ml/m2 LV % FS 31.2 % LV SYSTOLIC FUNCTION: Normal Ranges: EF-A4C View: 57 % (>=55%) EF-A2C View: 30 % EF-Biplane: 46 % EF-Visual: 48 % LV EF Reported: 48 % LV DIASTOLIC FUNCTION: Normal Ranges: MV Peak E: 0.29 m/s (0.7-1.2 m/s) MV Peak A: (more content not included)... SYNGO Edgardo Mullins MD - 01/09/2025 [facility], [address] [address] and TRANSTHORACIC ECHOCARDIOGRAM REPORT Patient Name: MICHELLE MITCHELL Reading Physician: [id number] Edgardo Mullins MD Study Date: 01/09/2025 Ordering Provider: [id number] MARILEE SHEIKH MRN/PID: [id number] Fellow: Nurse: Date of /Age: 7 1980 / 44 years Search Analyst: Danita Beckford RDCS Gender assigned at F Additional Staff: : Height: 162.00 cm Admit Date: 01/09/2025 Weight: 57.00 kg Admission Status: Inpatient - Routine BSA / BMI: 1.60 m2 / 21.72 kg/m2 Blood Pressure: 133/79 mmHg Department Location: [facility] Study Type: TRANSTHORACIC ECHO (TTE) LIMITED Diagnosis/ICD: Encounter for other specified special examinations-Z01.89 Indication: reassess LV function, HCM - please include LVOT Gradient; CPT Code: Echo Limited-81600; Color Doppler-73877; Doppler Limited-62149 Patient History: Pertinent History: MH of HOCM, HFrEF (EF 40% as of 09/21/24) s/p ICD placement, DVT/PE 2017, PUD, GERD, tobacco use dependence, breast cancer s/p lumpectomy and chemotherapy, ovarian cancer s/p oophorectomy, endometrial cancer s/p ablation, biliary duct obstruction s/p stent placement, anxiety, depression, and migraines. Study Detail: The following Echo studies were performed: 2D, M-Mode, Doppler and color flow. Technically challenging study due to body habitus. PHYSICIAN INTERPRETATION: Left Ventricle: Left ventricular ejection fraction is mildly decreased by visual estimate at 45-50%. There is moderate left ventricular hypertrophy. There is global hypokinesis of the left ventricle with minor regional variations. The left ventricular cavity size is normal. There is moderately increased septal and mildly increased posterior left ventricular wall thickness. Left ventricular diastolic filling is indeterminate. Left Atrium: The left atrial size is moderate to severely dilated. Right Ventricle: The right ventricle is normal in size. There is normal right ventricular global systolic function. A device is visualized in the right ventricle. Right Atrium: The right atrium is normal in size. There is a device visualized in the right atrium. Aortic Valve: The aortic valve is trileaflet. The peak and mean gradients are 5 mmHg and 3 mmHg, respectively with a dimensionless index of 0.85. There is mild aortic valve thickening. There is no evidence of aortic valve regurgitation. Mitral Valve: The mitral valve is mildly thickened. There is trace mitral valve regurgitation. The E Vmax is 0.29 m/s. Tricuspid Valve: The tricuspid valve is structurally normal. There is trace to mild tricuspid regurgitation. The Doppler estimated right ventricular systolic pressure (RVSP) is mildly elevated at 39 mmHg. Pulmonic Valve: The pulmonic valve is structurally normal. There is no indication of pulmonic valve regurgitation. Pericardium: There is no pericardial effusion noted. Aorta: The aortic root is normal. Systemic Veins: The inferior vena cava appears normal in size, with IVC inspiratory collapse greater than 50%. CONCLUSIONS: 1. Left ventricular ejection fraction is mildly decreased by visual estimate at 45-50%. 2. There is global hypokinesis of the left ventricle with minor regional variations. 3. Left ventricular diastolic filling is indeterminate. 4. There is moderately increased septal thickness. 5. There is moderate left ventricular hypertrophy. 6. There is normal right ventricular global systolic function. 7. The left atrial size is moderate to severely dilated. 8. The Doppler estimated RVSP is mildly elevated at 39 mmHg. QUANTITATIVE DATA SUMMARY: 2D MEASUREMENTS: Normal Ranges: IVSd: 1.30 cm (0.6-1.1cm) LVPWd: 1.00 cm (0.6-1.1cm) LVIDd: 4.80 cm (3.9-5.9cm) LVIDs: 3.30 cm LV Mass Index: 129 g/m2 LVEDV Index: 60 ml/m2 LV % FS 31.2 % LV SYSTOLIC FUNCTION: Normal Ranges: EF-A4C View: 57 % (>=55%) EF-A2C View: 30 % EF-Biplane: 46 % EF-Visual: 48 % LV EF Reported: 48 % LV DIASTOLIC FUNCTION: Normal Ranges: MV Peak E: 0.29 m/s (0.7-1.2 m/s) MV Peak A: 0.29 m/s (0.42-0.7 m/s) E/A Ratio: 0.98 (1.0-2.2) MV e' 0.040 m/s (>8.0) MV lateral e' 0.04 m/s MV medial e' 0.04 m/s MV A Dur: 151.00 msec E/e' Ratio: 7.10 (<8.0) PulmV Sys Carrington: 38.90 cm/s PulmV Hensley Carrington: 22.30 cm/s PulmV S/D Carrington: 1.70 PulmV A Revs Carrington: 19.00 cm/s PulmV A Revs Dur: 161.00 msec MITRAL VALVE: Normal Ranges: MV DT: 363 msec (150-240msec) AORTIC VALVE: Normal Ranges: AoV Vmax: 1.11 m/s (<=1.7m/s) AoV Peak P.9 mmHg (<20mmHg) AoV Mean P.0 mmHg (1.7-11.5mmHg) LVOT Max Carrington: 1.00 m/s (<=1.1m/s) AoV VTI: 22.00 cm (18-25cm) LVOT VTI: 18.70 cm AoV Dimensionless Index: 0.85 RIGHT VENTRICLE: TAPSE: 17.2 mm RV s' 0. (more content not included)... [facility] Work Phone: White blood cell (WBC) count Ordered By: Babar Wood on 01-09-2025 WBC (Bld) [#/Vol] 12.2 10*3/uL High 4.4-11.0 [facility] XR CHEST 1 VIEWon 01-09-2025 XR CHEST 1 VIEW Interpreted By: Sergio Rosario, STUDY: XR CHEST 1 VIEW; 01/09/2025 11:31 am INDICATION: CLINICAL INFORMATION: Signs/Symptoms:Chest pain. Defibrillator discharge. COMPARISON: 11/24/2013 ACCESSION NUMBER(S): [id number] ORDERING CLINICIAN: HOME DRISCOLL TECHNIQUE: Portable chest one view. FINDINGS: The cardiac size is indeterminate in view of the AP projection. Previously identified bipolar cardiac pacemaker has been replaced with a unipolar pacemaker with a defibrillator lead. The patient device overlies the right hemithorax. Tip of the pacer lead overlies the apex of the right ventricle. There is no evidence for pneumothorax. No infiltrates or effusions are identified. Minimal right basilar atelectasis is suspected. IMPRESSION: 1. Unipolar right-sided cardiac pacemaker with defibrillator lead as above. 2. Minimal right basilar subsegmental atelectasis. MACRO: none Signed by: Sergio Guzman 01/09/2025 1:59 PM Dictation workstation: [id number] [facility] XR Chest Single viewon 01-09 1. Unipolar right-si ded cardiac pacemaker with defibrillator lead as above. 2. Minimal right basilar subsegmental atelectasis. MACRO: none Signed by: Sergio Guzman 01/09/2025 1:59 PM Dictation workstation: [id number] MMODAL Interpreted By: Sergio Rosario, STUDY: XR CHEST 1 VIEW; 01/09/2025 11:31 am INDICATION: CLINICAL INFORMATION: Signs/Symptoms:Chest pain. Defibrillator discharge. COMPARISON: 11/24/2013 ACCESSION NUMBER(S): [id number] ORDERING CLINICIAN: HOME DRISCOLL TECHNIQUE: Portable chest one view. FINDINGS: The cardiac size is indeterminate in view of the AP projection. Previously identified bipolar cardiac pacemaker has been replaced with a unipolar pacemaker with a defibrillator lead. The patient device overlies the right hemithorax. Tip of the pacer lead overlies the apex of the right ventricle. There is no evidence for pneumothorax. No infiltrates or effusions are identified. Minimal right basilar atelectasis is suspected. [facility] MMODAL Sergio Guzman MD - 01/09/2025 Interpreted By: Sergio Guzman, STUDY: XR CHEST 1 VIEW; 01/09/2025 11:31 am INDICATION: CLINICAL INFORMATION: Signs/Symptoms:Chest pain. Defibrillator discharge. COMPARISON: 11/24/2013 ACCESSION NUMBER(S): [id number] ORDERING CLINICIAN: HOME DRISCOLL TECHNIQUE: Portable chest one view. FINDINGS: The cardiac size is indeterminate in view of the AP projection. Previously identified bipolar cardiac pacemaker has been replaced with a unipolar pacemaker with a defibrillator lead. The patient device overlies the right hemithorax. Tip of the pacer lead overlies the apex of the right ventricle. There is no evidence for pneumothorax. No infiltrates or effusions are identified. Minimal right basilar atelectasis is suspected. IMPRESSION: 1. Unipolar right-sided cardiac pacemaker with defibrillator lead as above. 2. Minimal right basilar subsegmental atelectasis. MACRO: none Signed by: Sergio Guzman 01/09/2025 1:59 PM Dictation workstation: [id number] [facility] Work Phone: Radiology Study observation (narrative) [facility] Work Phone: XR Chest Single viewOrdered By: Sergio Guzman on 01-09-2025 [facility] Work Phone: [phone] 12-31-2024 36 S: Pt called [facility] RN regarding medication questions B: Ongoing A: Pt reported several hospital visits in the past week. She was sent home with [facility]. She states she is in severe pain and out of her pain medicine. She called the office today at 3 and was advised they would send something in. Nothing has been sent to pharmacy. Pharmacy and allergies verified R: RN cannot see notes from hospital admissions or previous encounters with office. RN advised pt go to ER and pt declined stating "it looks bad". RN educated as to why pt should go to ER and stated she'll continue to recommend but will send a message to office to review and advise. RN advised pt call back during business hours to speak with the office. Reason for Disposition [1] SEVERE pain (e.g., excruciating) AND [2] present > 1 hour Protocols used: Abdominal Pain - ADULT-AH Normal [facility] Discharge Instructionon 12-13 Discharge Instruction Normal [facility] Electrocardiogram reportOrde red By: Mercy Bishop on 12-31-2024 EKG study [facility] Work Phone: [phone] EKG study [facility] Work Phone: [phone] Electrocardiogram reportOrde red By: Jose Francisco Santamaria on 12-31-2024 EKG study [facility] Work Phone: [phone] EKG study [facility] Work Phone: [phone] EKG study [facility] Work Phone: [phone] EKG study [facility] Work Phone: [phone] Absolute lymphocyte countOrd ered By: Emersonzoie Sierra on 12-30-2024 Lymphocytes Auto (Unsp spec) [#/Vol] 1.56 10*3/uL 0.83-4.51 [facility] Automated lymphocyte count a s percentage of total leukocytesOrdered By: Emersonyan Sierra on 12-30-2024 Lymphocytes/100 WBC Auto (Unsp spec) 15.8 % Low 19-41 [facility] Basophil percentageOrdered B y: Emersonzoie Sierra on 12-30-2024 Basophils/100 WBC (Bld) 0.7 % 0-1 [facility] CBC W/Diff, Automatedon 12-12 Absolute Lymph 1.56 X10 3/uL Normal 0.83-4.51 [facility] Comment on above: Performed By: #### L 100.0100 ####[facility] [address] [place], [address] Absolute Neut 7.5 X10 3/uL Normal 2.0-7.7 [facility] Comment on above: Performed By: #### L 100.0100 ####[facility] [address] [place], [address] Basophils/100 WBC (Bld) 0.7 % Normal 0-1 [facility] Comment on above: Performed By: #### L 100.0100 ####[facility] [address] [place], [address] Eosinophils/100 WBC (Bld) 2.6 % Normal 0-5 [facility] Comment on above: Performed By: #### L 100.0100 ####[facility] [address] [place], [address] Erythrocyte distribution width (RBC) [Ratio] 14.4 % Normal 11.6-14.6 [facility] Comment on above: Performed By: #### L 100.0100 ####[facility] [address] [place], [address] Hematocrit (Bld) [Volume fraction] 35.5 % Low 37-47 [facility] Comment on above: Performed By: #### L 100.0100 ####[facility] [address] [place], [address] Hemoglobin (Bld) [Mass/Vol] 11.7 g/dL Low 12.0-15.0 [facility] Comment on above: Performed By: #### L 100.0100 ####[facility] [address] [place], [address] IG% 0.700 Normal 0.0-0.9 [facility] Comment on above: Result Comment: IG% - Immature Granulocytes (promyelocytes, myelocytes andmetamyelocytes) > 1% indicates that a LEFT SHIFT is Present. Performed By: #### L 100.0100 ####[facility] [address] [place], [address] Lymphocytes/100 WBC (Bld) 15.8 % Low 19-41 [facility] Comment on above: Performed By: #### L 100.0100 ####[facility] [address] [place], [address] MCH (RBC) [Entitic mass] 31.1 pg Normal 27.0-32.0 [facility] Comment on above: Performed By: #### L 100.0100 ####[facility] [address] [place], [address] MCHC (RBC) [Mass/Vol] 33.0 g/dL Normal 32-36 [facility] Comment on above: Performed By: #### L 100.0100 ####[facility] [address] [place], [address] MCV (RBC) [Entitic vol] 94.4 fL Normal 81-99 [facility] Comment on above: Performed By: #### L 100.0100 ####[facility] [address] [place], [address] Monocytes/100 WBC (Bld) 4.2 % Normal 0-10 [facility] Comment on above: Performed By: #### L 100.0100 ####[facility] [address] [place], [address] Neutrophils/100 WBC (Bld) 76.0 % High 47-70 [facility] Comment on above: Performed By: #### L 100.0100 ####[facility] [address] [place], [address] Nucleated RBC (Bld) [#/Vol] 0 10*3/uL Normal 0-5 [facility] Comment on above: Performed By: #### L 100.0100 ####[facility] [address] [place], [address] Platelet mean volume (Bld) [Entitic vol] 10.7 fL Normal 6.2-12.0 [facility] Comment on above: Performed By: #### L 100.0100 ####[facility] [address] [place], [address] Platelets (Bld) [#/Vol] 257 10*3/uL Normal 150-450 [facility] Comment on above: Performed By: #### L 100.0100 ####[facility] [address] [place], [address] RBC (Bld) [#/Vol] 3.76 10*6/uL Low 4.2-5.4 [facility] Comment on above: Performed By: #### L 100.0100 ####[facility] [address] [place], [address] RDW SD 49.7 fl High 35.1-43.9 [facility] Comment on above: Performed By: #### L 100.0100 ####[facility] [address] [place], [address] WBC (Bld) [#/Vol] 9.9 10*3/uL Normal 4.4-11.0 [facility] Comment on above: Performed By: #### L 100.0100 ####[facility] [address] [place], [address] CDIFF (PCR)on 12-30-2024 CDIFF Normal [facility] Comment on above: Performed By: #### M 100.637, M100.6796, M100.6795 ####[facility] [address] [place], [address] Clostridium Diff Toxin/Agon 12-30-2024 CDIFF (EIA) Normal [facility] Comment on above: Performed By: #### M 100.637, M100.6796, M100.6795 ####[facility] [address] [place], [address] Clostridium difficile detect ion by polymerase chain reactionOrdered By: Emerson Sierra on 12-30-2024 C. difficile DNA BIMAL+probe Ql (Unsp spec) [facility] C. difficile DNA IBMAL+probe Ql (Unsp spec) [facility] ENTERIC PATHOGEN PANEL STOOL on 12-30-2024 EP PANEL Normal [facility] Comment on above: Performed By: #### M 100.637, M100.6796, M100.6795 ####[facility] [address] [place], [address] Eosinophil percentageOrdered By: Emerson Sierra on 12-30-2024 Eosinophils/100 WBC (Bld) 2.6 % 0-5 [facility] Erythrocyte distribution wid th ratioOrdered By: Emerson Sierra on 12-30-2024 Erythrocyte distribution width (RBC) [Ratio] 14.4 % 11.6-14.6 [facility] Erythrocyte distribution wid th standard deviationOrdered By: Emerson Sierra on 12-30-2024 Erythrocyte distribution width (RBC) [Ratio] 49.7 fl High 35.1-43.9 [facility] Hematocrit Auto (Bld) [Volum e fraction]Ordered By: Emerson Sierra on 12-30-2024 Hematocrit (Bld) [Volume fraction] 35.5 % Low 37-47 [facility] Hemoglobin measurementOrdere d By: Emerson Sierra on 12-30-2024 Hemoglobin (Bld) [Mass/Vol] 11.7 g/dL Low 12.0-15.0 [facility] Immature granulocytes/100 WB C Auto (Bld)Ordered By: Emerson Sierra on 12-30-2024 Immature granulocytes/100 WBC (Bld) 0.700 % 0.0-0.9 [facility] MCV (mean corpuscular volume ) determinationOrdered By: Emerson Sierra on 12-30-2024 MCV (RBC) [Entitic vol] 94.4 fL 81-99 [facility] Mean corpuscular hemoglobin (MCH) determinationOrdered By: Emerson Sierra on 12-30-2024 MCH (RBC) [Entitic mass] 31.1 pg 27.0-32.0 [facility] Monocyte percentageOrdered B y: Emerson Sierra on 12-30-2024 Monocytes/100 WBC (Bld) 4.2 % 0-10 [facility] Neutrophil percentageOrdered By: Emerson Sierra on 12-30-2024 Neutrophils/100 WBC (Bld) 76.0 % High 47-70 [facility] Platelet countOrdered By: Yaniv Sierra on 12-30-2024 Platelets (Bld) [#/Vol] 257 10*3/uL 150-450 [facility] RBC Auto (Bld) [#/Vol]Ordere d By: Emerson Sierra on 12-30-2024 RBC (Bld) [#/Vol] 3.76 10*6/uL Low 4.2-5.4 [facility] Stool Clostridium difficile detectionOrdered By: Emerson Sierra on 12-30-2024 C. difficile Ql (Stl) [facility] C. difficile Ql (Stl) [facility] White blood cell (WBC) count Ordered By: Emerson Sierra on 12-30-2024 WBC (Bld) [#/Vol] 9.9 10*3/uL 4.4-11.0 [facility] 12 Lead EKGon 12-29-2024 12 Lead EKG Normal [facility] Anion gap in Serum or Plasma Ordered By: Carlos Ashford on 12-29-2024 Anion gap [Moles/Vol] 12 mmol/L 5-15 [facility] BUN/creatinine ratioOrdered By: Carlos Ashford on 12-29-2024 Urea nitrogen/Creatinine [Mass ratio] 26.6 mg/mg High 12-31 [facility] Basic Metabolic Profile (BMP )on 12-29-2024 BUN/CRE 26.6 RATIO High 12-31 [facility] Comment on above: Performed By: #### L 100.0100, L500.2500 ####[facility] [address] [place], [address] Calcium [Mass/Vol] 9.4 mg/dL Normal 7.6-11.0 [facility] Comment on above: Performed By: #### L 100.0100, L500.2500 ####[facility] [address] [place], [address] Chloride [Moles/Vol] 104 mmol/L Normal 98-108 [facility] Comment on above: Performed By: #### L 100.0100, L500.2500 ####[facility] [address] [place], [address] CO2 [Moles/Vol] 20.0 mmol/L Low 21.0-32.0 [facility] Comment on above: Performed By: #### L 100.0100, L500.2500 ####[facility] [address] [place], [address] Creatinine [Mass/Vol] 0.79 mg/dL Normal 0.70-1.20 [facility] Comment on above: Performed By: #### L 100.0100, L500.2500 ####[facility] [address] [place], [address] ECRCL 77.66 ml/min Normal 50-250 [facility] Comment on above: Performed By: #### L 100.0100, L500.2500 ####[facility] [address] [place], [address] GAP 12 Normal 5-15 [facility] Comment on above: Performed By: #### L 100.0100, L500.2500 ####[facility] [address] [place], [address] GFR/1.73 sq M.predicted among non-blacks MDRD (S/P/Bld) [Vol rate/Area] 94 mL/min/{1.73_m2} Normal >60 [facility] Comment on above: Result Comment: mL/m in/1.73m2 CKD-EPI Creatinine Equation (2020) Performed By: #### L 100.0100, L500.2500 ####[facility] [address] [place], [address] Glucose [Mass/Vol] 96 mg/dL Normal 70-99 [facility] Comment on above: Performed By: #### L 100.0100, L500.2500 ####[facility] [address] [place], [address] Potassium [Moles/Vol] 4.3 mmol/L Normal 3.3-5.1 [facility] Comment on above: Performed By: #### L 100.0100, L500.2500 ####[facility] [address] [place], [address] Sodium [Moles/Vol] 136 mmol/L Normal 133-145 [facility] Comment on above: Performed By: #### L 100.0100, L500.2500 ####[facility] [address] [place], [address] Urea nitrogen [Mass/Vol] 21 mg/dL High 4-19 [facility] Comment on above: Performed By: #### L 100.0100, L500.2500 ####[facility] [address] [place], [address] CBC W/Diff, Automatedon 10- 8-2024 Absolute Lymph 1.55 X10 3/uL Normal 0.83-4.51 [facility] Comment on above: Performed By: #### L 100.0100, L500.2500 ####[facility] [address] [place], [address] Absolute Neut 14.1 X10 3/uL High 2.0-7.7 [facility] Comment on above: Performed By: #### L 100.0100, L500.2500 ####[facility] [address] [place], [address] Basophils/100 WBC (Bld) 0.4 % Normal 0-1 [facility] Comment on above: Performed By: #### L 100.0100, L500.2500 ####[facility] [address] [place], [address] Eosinophils/100 WBC (Bld) 0.4 % Normal 0-5 [facility] Comment on above: Performed By: #### L 100.0100, L500.2500 ####[facility] [address] [place], [address] Erythrocyte distribution width (RBC) [Ratio] 14.5 % Normal 11.6-14.6 [facility] Comment on above: Performed By: #### L 100.0100, L500.2500 ####[facility] [address] [place], [address] Hematocrit (Bld) [Volume fraction] 35.8 % Low 37-47 [facility] Comment on above: Performed By: #### L 100.0100, L500.2500 ####[facility] [address] [place], [address] Hemoglobin (Bld) [Mass/Vol] 11.9 g/dL Low 12.0-15.0 [facility] Comment on above: Performed By: #### L 100.0100, L500.2500 ####[facility] [address] [place], [address] IG% 0.400 Normal 0.0-0.9 [facility] Comment on above: Result Comment: IG% - Immature Granulocytes (promyelocytes, myelocytes andmetamyelocytes) > 1% indicates that a LEFT SHIFT is Present. Performed By: #### L 100.0100, L500.2500 ####[facility] [address] [place], [address] Lymphocytes/100 WBC (Bld) 9.5 % Low 19-41 [facility] Comment on above: Performed By: #### L 100.0100, L500.2500 ####[facility] [address] [place], [address] MCH (RBC) [Entitic mass] 31.4 pg Normal 27.0-32.0 [facility] Comment on above: Performed By: #### L 100.0100, L500.2500 ####[facility] [address] [place], [address] MCHC (RBC) [Mass/Vol] 33.2 g/dL Normal 32-36 [facility] Comment on above: Performed By: #### L 100.0100, L500.2500 ####[facility] [address] [place], [address] MCV (RBC) [Entitic vol] 94.5 fL Normal 81-99 [facility] Comment on above: Performed By: #### L 100.0100, L500.2500 ####[facility] [address] [place], [address] Monocytes/100 WBC (Bld) 2.7 % Normal 0-10 [facility] Comment on above: Performed By: #### L 100.0100, L500.2500 ####[facility] [address] [place], [place], [address] Neutrophils/100 WBC (Bld) 86.6 % High 47-70 [facility] Comment on above: Performed By: #### L 100.0100, L500.2500 ####[facility] [address] [place], [address] Nucleated RBC (Bld) [#/Vol] 0 10*3/uL Normal 0-5 [facility] Comment on above: Performed By: #### L 100.0100, L500.2500 ####[facility] [address] [place], [address] Platelet mean volume (Bld) [Entitic vol] 10.8 fL Normal 6.2-12.0 [facility] Comment on above: Performed By: #### L 100.0100, L500.2500 ####[facility] [address] [place], [address] Platelets (Bld) [#/Vol] 234 10*3/uL Normal 150-450 [facility] Comment on above: Performed By: #### L 100.0100, L500.2500 ####[facility] [address] [place], [address] RBC (Bld) [#/Vol] 3.79 10*6/uL Low 4.2-5.4 [facility] Comment on above: Performed By: #### L 100.0100, L500.2500 ####[facility] [address] [place], [address] RDW SD 50.0 fl High 35.1-43.9 [facility] Comment on above: Performed By: #### L 100.0100, L500.2500 ####[facility] [address] [place], [address] WBC (Bld) [#/Vol] 16.3 10*3/uL High 4.4-11.0 [facility] Comment on above: Performed By: #### L 100.0100, L500.2500 ####[facility] [address] [place], [address] Carbon dioxide, total [Moles /volume] in Central venous bloodOrdered By: Carlos Ashford on 12-29-2024 CO2 [Moles/Vol] 20.0 mmol/L Low 21.0-32.0 [facility] Chloride assayOrdered By: Reyna Ashford on 12-29-2024 Chloride [Moles/Vol] 104 mmol/L 98-108 [facility] Glomerular filtration rate ( GFR) estimation/1.73 sq m using serum, plasma, or whole bOrdered By: Carlos Ashford on 12-29-2024 GFR/1.73 sq M.predicted among non-blacks MDRD (S/P/Bld) [Vol rate/Area] 94 mL/min/{1.73_m2} >60 [facility] Influenza virus A and B and SARS-CoV-2 (COVID-19) and Respiratory syncytial virus RNAOrdered By: Emerson Sierra on 12-29-2024 SARS-CoV-2 (COVID-19) RNA BIMAL+probe Ql (Unsp spec) [facility] SARS-CoV-2 (COVID-19) RNA BIMAL+probe Ql (Unsp spec) [facility] L501.4021on 12-29-2024 Trop T High Sen 61 ng/L Invalid Interpretation Code <=14 [facility] Comment on above: Result Comment: Crit ical Result(s) Called at: 06:01 12-29-24 TO JATINDER by: JOEL SULLIVAN??Results read back by same. Performed By: #### L 501.4021 ####[facility] [address] [place], [place], [address] Lactic Acidon 12-29-2024 Lactate [Moles/Vol] 1.9 mmol/L Normal 0.0-2.0 [facility] Comment on above: Order Comment: Y Performed By: #### L 503.6005 ####[facility] [address] [place], [place], [address] Lipaseon 12-29-2024 Lipase [Catalytic activity/Vol] 16 U/L Normal 13-75 [facility] Comment on above: Order Comment: SAG2 2 B D Result Comment: Liam rader note:LIPASE revised reference range effective 22.New Lipase methodology. Expected to produce lower valuesthan the previous assay method.NEW Reference Range: 13 - 75 U/L Performed By: #### L 501.2450 ####[facility] [address] [place], [place], [address] M100.678on 12-29-2024 M100.678 SARS-CoV-2 (COVID 19 ) Negative INFLUENZA A Negative INFLUENZA B Negative RSV PCR Negative Normal [facility] Comment on above: Performed By: #### M 100.678 ####[facility] [address] [facility] [place], [place], [address] Potassium measurement (mass/ volume)Ordered By: Carlos Ashford on 12-29-2024 Potassium (Unsp spec) [Mass/Vol] 4.3 mmol/L 3.3-5.1 [facility] Serum creatinine measurement (mass/volume)Ordered By: Carlos Ashford on 12-29-2024 Creatinine [Mass/Vol] 0.79 mg/dL 0.70-1.20 [facility] Serum glucose measurement (m ass/volume)Ordered By: Carlos Ashford on 12-29-2024 Glucose [Mass/Vol] 96 mg/dL 70-99 [facility] Serum or plasma calcium leslie urement (mass/volume)Ordered By: Carlos Ashford on 12-29-2024 Calcium [Mass/Vol] 9.4 mg/dL 7.6-11.0 [facility] Serum or plasma urea nitroge n measurement (mass/volume)Ordered By: Carlos Ashford on 12-29-2024 Urea nitrogen [Mass/Vol] 21 mg/dL High - [facility] Sodium levelOrdered By: Daljit Ashford on 12-29-2024 Sodium [Moles/Vol] 136 mmol/L 133-145 [facility] Troponin T HS 2 HRon 025 Trop T High Sen 57 ng/L Invalid Interpretation Code <=14 [facility] Comment on above: Result Comment: Crit ical Result(s) Called at: 0822 12/29/2024 by: EVAN??Results read back by same. Performed By: #### L 499.0042 ####[facility] [address] [place], [place], [address] Troponin T HS 4 HRon 025 Trop T High Sen 48 ng/L High <=14 [facility] Comment on above: Performed By: #### L 499.0043 ####[facility] [address] [place], [place], [address] Troponin T.cardiac [Mass/vol ume] in Serum or Plasma by High sensitivity methodOrdered By: Taylor Tejeda on 12-29-2024 Troponin T.cardiac High sensitivity method [Mass/Vol] 48 ng/L High <14 [facility] Troponin T.cardiac High sensitivity method [Mass/Vol] 57 ng/L Critically high <14 [facility] Troponin T.cardiac High sensitivity method [Mass/Vol] 61 ng/L Critically high <14 [facility] 12 Lead EKGon 12-28-2024 12 Lead EKG Normal [facility] 12 Lead EKG Normal [facility] Activated partial thrombopla stin time (aPTT) in platelet poor plasma by coagulation aOrdered By: Edwin Cuenca on 12-28-2024 aPTT Coag (PPP) [Time] 24.1 s 24.1-36.2 [facility] Basic Metabolic Profile (BMP )on 12-28-2024 BUN/CRE 20.6 RATIO High 12-31 [facility] Comment on above: Performed By: #### L 503.7505, L500.2500, L501.5200, L501.2450 ####[facility] [address] [place], [address] Calcium [Mass/Vol] 9.7 mg/dL Normal 7.6-11.0 [facility] Comment on above: Performed By: #### L 503.7505, L500.2500, L501.5200, L501.2450 ####[facility] [address] [place], [address] Chloride [Moles/Vol] 104 mmol/L Normal 98-108 [facility] Comment on above: Performed By: #### L 503.7505, L500.2500, L501.5200, L501.2450 ####[facility] [address] [place], [address] CO2 [Moles/Vol] 18.5 mmol/L Low 21.0-32.0 [facility] Comment on above: Performed By: #### L 503.7505, L500.2500, L501.5200, L501.2450 ####[facility] [address] [place], [address] Creatinine [Mass/Vol] 0.87 mg/dL Normal 0.70-1.20 [facility] Comment on above: Performed By: #### L 503.7505, L500.2500, L501.5200, L501.2450 ####[facility] [address] [place], [address] ECRCL 70.51 ml/min Normal 50-250 [facility] Comment on above: Performed By: #### L 503.7505, L500.2500, L501.5200, L501.2450 ####[facility] [address] [place], [address] GAP 14 Normal 5-15 [facility] Comment on above: Performed By: #### L 503.7505, L500.2500, L501.5200, L501.2450 ####[facility] [address] [place], [address] GFR/1.73 sq M.predicted among non-blacks MDRD (S/P/Bld) [Vol rate/Area] 83 mL/min/{1.73_m2} Normal >60 [facility] Comment on above: Result Comment: mL/m in/1.73m2 CKD-EPI Creatinine Equation (2020) Performed By: #### L 503.7505, L500.2500, L501.5200, L501.2450 ####[facility] [address] [place], [address] Glucose [Mass/Vol] 210 mg/dL High 70-99 [facility] Comment on above: Performed By: #### L 503.7505, L500.2500, L501.5200, L501.2450 ####[facility] [address] [place], [address] Potassium [Moles/Vol] 4.5 mmol/L Normal 3.3-5.1 [facility] Comment on above: Result Comment: Hemo lysis present, Results??could be affected.?? Performed By: #### L 503.7505, L500.2500, L501.5200, L501.2450 ####[facility] [address] [place], [address] Sodium [Moles/Vol] 136 mmol/L Normal 133-145 [facility] Comment on above: Performed By: #### L 503.7505, L500.2500, L501.5200, L501.2450 ####[facility] [address] [place], [address] Urea nitrogen [Mass/Vol] 18 mg/dL Normal 4-19 [facility] Comment on above: Performed By: #### L 503.7505, L500.2500, L501.5200, L501.2450 ####[facility] [address] [place], [address] Bilirubin Test strip Ql (U)O rdered By: Edwin Cuenca on 12-28-2024 Bilirubin Ql (U) Negative Negative [facility] CBC W/Diff, Automatedon 12-12 Absolute Lymph 0.37 X10 3/uL Low 0.83-4.51 [facility] Comment on above: Performed By: #### L 501.4021, L300.3900, L100.0100 ####[facility] [address] [place], [address] Absolute Neut 22.3 X10 3/uL High 2.0-7.7 [facility] Comment on above: Performed By: #### L 501.4021, L300.3900, L100.0100 ####[facility] [address] [place], [address] Basophils/100 WBC (Bld) 0.1 % Normal 0-1 [facility] Comment on above: Performed By: #### L 501.4021, L300.3900, L100.0100 ####[facility] [address] [place], [address] Eosinophils/100 WBC (Bld) 0.0 % Normal 0-5 [facility] Comment on above: Performed By: #### L 501.4021, L300.3900, L100.0100 ####[facility] [address] [place], [address] Erythrocyte distribution width (RBC) [Ratio] 14.1 % Normal 11.6-14.6 [facility] Comment on above: Performed By: #### L 501.4021, L300.3900, L100.0100 ####[facility] [address] [place], [address] Hematocrit (Bld) [Volume fraction] 40.6 % Normal 37-47 [facility] Comment on above: Performed By: #### L 501.4021, L300.3900, L100.0100 ####[facility] [address] [place], [address] Hemoglobin (Bld) [Mass/Vol] 13.2 g/dL Normal 12.0-15.0 [facility] Comment on above: Performed By: #### L 501.4021, L300.3900, L100.0100 ####[facility] [address] [place], [address] IG% 0.800 Normal 0.0-0.9 [facility] Comment on above: Result Comment: IG% - Immature Granulocytes (promyelocytes, myelocytes andmetamyelocytes) > 1% indicates that a LEFT SHIFT is Present. Performed By: #### L 501.4021, L300.3900, L100.0100 ####[facility] [address] [place], [address] Lymphocytes/100 WBC (Bld) 1.6 % Low 19-41 [facility] Comment on above: Performed By: #### L 501.4021, L300.3900, L100.0100 ####[facility] [address] [place], [address] MCH (RBC) [Entitic mass] 30.8 pg Normal 27.0-32.0 [facility] Comment on above: Performed By: #### L 501.4021, L300.3900, L100.0100 ####[facility] [address] [place], [address] MCHC (RBC) [Mass/Vol] 32.5 g/dL Normal 32-36 [facility] Comment on above: Performed By: #### L 501.4021, L300.3900, L100.0100 ####[facility] [address] [place], [address] MCV (RBC) [Entitic vol] 94.9 fL Normal 81-99 [facility] Comment on above: Performed By: #### L 501.4021, L300.3900, L100.0100 ####[facility] [address] [place], [address] Monocytes/100 WBC (Bld) 1.4 % Normal 0-10 [facility] Comment on above: Performed By: #### L 501.4021, L300.3900, L100.0100 ####[facility] [address] [place], [address] Neutrophils/100 WBC (Bld) 96.1 % High 47-70 [facility] Comment on above: Performed By: #### L 501.4021, L300.3900, L100.0100 ####[facility] [address] [place], [address] Nucleated RBC (Bld) [#/Vol] 0 10*3/uL Normal 0-5 [facility] Comment on above: Performed By: #### L 501.4021, L300.3900, L100.0100 ####[facility] [address] [place], [address] Platelet mean volume (Bld) [Entitic vol] 11.0 fL Normal 6.2-12.0 [facility] Comment on above: Performed By: #### L 501.4021, L300.3900, L100.0100 ####[facility] [address] [place], [address] Platelets (Bld) [#/Vol] 264 10*3/uL Normal 150-450 [facility] Comment on above: Performed By: #### L 501.4021, L300.3900, L100.0100 ####[facility] [address] [place], [address] RBC (Bld) [#/Vol] 4.28 10*6/uL Normal 4.2-5.4 [facility] Comment on above: Performed By: #### L 501.4021, L300.3900, L100.0100 ####[facility] [address] [place], [address] RDW SD 48.7 fl High 35.1-43.9 [facility] Comment on above: Performed By: #### L 501.4021, L300.3900, L100.0100 ####[facility] [address] [place], [address] WBC (Bld) [#/Vol] 23.2 10*3/uL High 4.4-11.0 [facility] Comment on above: Performed By: #### L 501.4021, L300.3900, L100.0100 ####[facility] [address] [place], [address] CTA Chest W/WO Contraston CTA Chest W/WO Contrast Normal [facility] Emergency Department Summary on 12-28-2024 Emergency Department Summary Normal [facility] H AND P Exam - Hospitaliston 12-28-2024 H&P Exam - Hospitalist Normal [facility] Ketones Test strip Ql (U)Ord ered By: Edwin Cuenca on 12-28-2024 Ketones Ql (U) Negative Negative [facility] L501.4021on 12-28-2024 Trop T High Sen 18 ng/L High <=14 [facility] Comment on above: Performed By: #### L 501.4021, L300.3900, L100.0100 ####[facility] [address] [place], [address] Lipaseon 12-28-2024 Lipase [Catalytic activity/Vol] 33 U/L Normal 13-75 [facility] Comment on above: Result Comment: Liam rader note:LIPASE revised reference range effective 22.New Lipase methodology. Expected to produce lower valuesthan the previous assay method.NEW Reference Range: 13 - 75 U/L Performed By: #### L 503.7505, L500.2500, L501.5200, L501.2450 ####[facility] [address] [place], [address] Magnesiumon 12-28-2024 Magnesium [Mass/Vol] 1.7 mg/dL Normal 1.5-2.2 [facility] Comment on above: Performed By: #### L 503.7505, L500.2500, L501.5200, L501.2450 ####[facility] [address] [place], [address] Magnesium measurement (mass/ volume)Ordered By: Edwin Cuenca on 12-28-2024 Magnesium (Unsp spec) [Mass/Vol] 1.7 mg/dL 1.5-2.2 [facility] Mucus LM Ql (Urine sed)Order ed By: Edwin Cuenca on 12-28-2024 Mucus Ql (Urine sed) 0 SEEN /hpf [facility] Natriuretic peptide.B prohor abbey N-Terminal [Mass/volume] in Serum or PlasmaOrdered By: Edwin Cuenca on 12-28-2024 Natriuretic peptide.B prohormone N-Terminal [Mass/Vol] 6238 pg/mL High <450 [facility] Nitrite Test strip Ql (U)Ord ered By: Edwin Cuenca on 12-28-2024 Nitrite Ql (U) Negative Negative [facility] Partial Thromboplast Timeon 12-28-2024 aPTT Coag (Bld) [Time] 24.1 s Normal 24.1-36.2 [facility] Comment on above: Order Comment: MALIKA Lee PREVIOUS SPECIMEN REJECTED DUE TOHEMOLYSIS. 12/28/24 0832 Etelvina Bell. Performed By: #### L 300.3900, L300.4310 ####[facility] [address] [place], [address] Pro- Brain NATRIURETIC PEPTI Kevin 12-28-2024 Natriuretic peptide B (Bld) [Mass/Vol] 6238 pg/mL High <=450 [facility] Comment on above: Result Comment: Hear t Failure Unlikely: < 300 pg/mLHeart Failure Likely< 50 Years: > 450 pg/mL50-75 Years: > 900 pg/mL>75 Years: > 1800 pg/mL Performed By: #### L 503.7505, L500.2500, L501.5200, L501.2450 ####[facility] [address] [place], [address] Protein Test strip Ql (U)Ord ered By: Edwin Cuenca on 12-28-2024 Protein Ql (U) 30 mg/dl High Negative [facility] Prothrombin Time w/INRon INR Coag (PPP) [Relative time] 1.0 {INR} Normal [facility] Comment on above: Order Comment: REDRA W. PREVIOUS SPECIMEN REJECTED DUE TOHEMOLYSIS. 12/28/2432 Etelvina Bell. Performed By: #### L 300.3900, L300.4310 ####[facility] [address] [place], [address] PT Coag (PPP) [Time] 13.6 s Normal 11.7-14.9 [facility] Comment on above: Order Comment: REDRA W. PREVIOUS SPECIMEN REJECTED DUE TOHEMOLYSIS. 12/28/24 0832 Etelvina Bell. Performed By: #### L 300.3900, L300.4310 ####[facility] [address] [place], [address] INR Normal [facility] Comment on above: Result Comment: This specimen has been REJECTED due to Laboratory criteria:Hemolyzed.AXEL SALDAÑA has been notified of need of recollection.12/28/24 0829 Etelvina Bell Performed By: #### L 501.4021, L300.3900, L100.0100 ####[facility] [address] [place], [address] PROTIME Normal 11.7-14.9 [facility] Comment on above: Result Comment: This specimen has been REJECTED due to Laboratory criteria:Hemolyzed.AXEL PIPER has been notified of need of recollection.12/28/24 0829 Etelvina Bell Performed By: #### L 501.4021, L300.3900, L100.0100 ####[facility] [address] [place], [address] Prothrombin timeOrdered By: Edwin Cuenca on 12-28-2024 PT Coag (PPP) [Time] 13.6 s 11.7-14.9 [facility] Squamous epithelial cells de tection in urine sediment by light microscopyOrdered By: Edwin Cuenca on 12-28-2024 Epithelial cells.squamous LM Ql (Urine sed) 0-5 SEEN /hpf - [facility] Troponin T HS 2 HRon 025 Trop T High Sen Normal <=14 [facility] Comment on above: Result Comment: This specimen has been REJECTED due to Laboratory criteria:SAMPLE DID NOT SEPARATE IN TUBE WITH GEL. TYRA PHOEBE has been notified of need of recollection.12/28/24 1058 Darryl Everett Performed By: #### L 499.0042 ####[facility] [address] [place], [address] Troponin T HS 4 HRon 025 Trop T High Sen 37 ng/L High <=14 [facility] Comment on above: Performed By: #### L 499.0043 ####[facility] [address] [place], [address] Urinalysis, Completeon 12-28 EPI,SQUAMOUS 0-5 SEEN Normal - [facility] Comment on above: Order Comment: COLLE CTOR TO SPECIFY Performed By: #### L 400.0001 ####[facility] [address] [place], [address] RBC 0-5 SEEN Normal 0-5 [facility] Comment on above: Order Comment: HARITHA CTOR TO SPECIFY Performed By: #### L 400.0001 ####[facility] [address] [place], [address] BACTERIA 0 SEEN Normal None Seen [facility] Comment on above: Order Comment: COLLE CTOR TO SPECIFY Performed By: #### L 400.0001 ####[facility] [address] [place], [address] Mucus Ql (Urine sed) 0 SEEN Normal [facility] Comment on above: Order Comment: HARITHA CTOR TO SPECIFY Performed By: #### L 400.0001 ####[facility] [address] [place], [address] WBC 0 SEEN Normal 0-5 [facility] Comment on above: Order Comment: HARITHA CTOR TO SPECIFY Performed By: #### L 400.0001 ####[facility] [address] [place], [address] Urine clarityOrdered By: Marc Cuenca on 12-28-2024 Clarity (U) Clear Clear [facility] Urine color determinationOrd ered By: Edwin Cuenca on 12-28-2024 Color (U) Yellow Yellow [facility] Urine glucose detectionOrder ed By: Edwin Cuenca on 12-28-2024 Glucose Ql (U) 1000 mg/dl High Normal [facility] Urine leukocyte esterase det ection by dipstickOrdered By: Edwin Cuenca on 12-28-2024 Leukocyte esterase Test strip Ql (U) Negative Negative [facility] Urine pHOrdered By: Edwin Cuenca on 12-28-2024 pH (U) 7.0 [pH] 5.0 - 8.0 [facility] Urine sediment bacteria coun t by microscopy (number/high power field)Ordered By: Edwin Cuenca on 12-28-2024 Bacteria LM.HPF (Urine sed) [#/Area] 0 /[HPF] None Seen [facility] Urine specific gravity measu rementOrdered By: Edwin Cuenca on 12-28-2024 Specific gravity (U) [Rel density] 1.010 1.002-1.03 0 [facility] Urine urobilinogen measureme ntOrdered By: Edwin Cuenca on 12-28-2024 Urobilinogen Ql (U) Normal mg/dl Normal [facility] White blood cell countOrdere d By: Edwin Cuenca on 12-28-2024 White blood cell count 0 SEEN /hpf 0-5 [facility] 36on 12-27-2024 36 S: Patient called [facility] with complaints of high blood pressure and pain. B: Symptoms began two days prior to call. Dr. Wilkinson sent patient to [place] ED two days ago, who transferred her to [facility]. Patient states they performed a cardiac catheterization and promptly discharged her. A: Patient reporting dizziness, nausea, diaphoresis, dyspnea, severe chest pain radiating to her left shoulder, and hypertension. Per patient, last reading was 156/101 by the staff nurse at [facility] just before discharge. Patient reports the only time she wasn't in pain was when the hospital was giving her narcotics. Denies vomiting, fever, or cough. R: Patient requesting that Dr. Wilkinson contact [facility] and have her admitted. Advised that providers are unable to exercise this kind of authority at healthcare facilities with whom they are not associated. Instructed patient to return to [place] [facility] via ambulance. Patient verbalizes understanding. Reason for Disposition [1] Chest pain lasts > 5 minutes AND [2] age > 44 Protocols used: Chest [id number] Addendum from 27Dec2024: No confirmation email from [employer] application after multiple attempts. Normal [facility] CARDIAC CATHETERIZATION PROC EDUREon 12-27-2024 CARDIAC CATHETERIZATION PROCEDURE [facility] [employer] Layer Machine Operator [address] [place] [address] [phone], Cardiovascular Catheterization Report Patient Name: MICHELLE MITCHELL Performing Physician: [id number] Jaxson Osorio MD Study Date: 12/27/2024 Verifying Physician: [id number] Jaxson Osorio MD MRN/PID: [id number] Forms Builder/Co-Scrub: Ordering Provider: [id number] JAXSON OSORIO Date of /Age: 7 1980 / 44 years Forms Builder: Gender: F Fellow: Surgeon: Study: Left Heart Cath Indications: MICHELLE MITCHELL is a 44 year old female who presents with hypertension, hypertrophic cardiomyopathy and a chest pain assessment of typical angina. Cardiomyopathy. Informed Consent: Benefits, risks, and alternatives discussed with patient or authorized goodwill representative and consent was obtained. Procedure Description: After infiltration with 2% Lidocaine, the right femoral artery was cannulated with a modified Seldinger technique. Subsequently a 5 Kenyan sheath was placed in the right femoral artery. Selective coronary catheterization was performed using a 5 Fr catheter(s) exchanged over a guide wire to cannulate the coronary arteries. A 5 Fr Weott catheter was used for left and right coronary artery injections. Multiple injections of contrast were made into the left and right coronary arteries with angiograms recorded in multiple projections. After completion of the procedure, the arterial sheath was pulled and pressure was applied to the site. Coronary Angiography: The coronary circulation is right dominant. Left Main Coronary Artery: The left main coronary artery is a normal caliber vessel. The left main arises normally from the left coronary sinus of Valsalva and bifurcates into the LAD and circumflex coronary arteries. The left main coronary artery showed a normal vessel. Left Anterior Descending Coronary Artery Distribution: The left anterior descending coronary artery is a normal caliber vessel. The LAD arises normally from the left main coronary artery. The LAD demonstrated a normal vessel. The 1st diagonal branch is a normal caliber vessel. The 1st diagonal branch showed a normal vessel. The 2nd diagonal branch is a normal caliber vessel. The 2nd diagonal branch demonstrated a normal vessel. Circumflex Coronary Artery Distribution: The circumflex coronary artery is a normal caliber vessel. The circumflex arises normally from the left main coronary artery and terminates in the AV groove. The circumflex revealed a normal vessel. The 1st obtuse marginal branch is a normal caliber vessel. The 1st obtuse marginal branch showed a normal vessel. The 2nd obtuse marginal branch is a normal caliber vessel. The 2nd obtuse marginal branch demonstrated a normal vessel. Right Coronary Artery Distribution: The right coronary artery is a normal caliber vessel. The RCA arises normally from the right sinus of Valsalva. The RCA showed a normal vessel. The right posterolateral branch is a normal caliber vessel. The right posterolateral branch showed a normal vessel. The right posterior descending artery is a normal caliber vessel. The right posterior descending artery showed a normal vessel. Left Ventriculography: Global left ventricular systolic function was moderately to severely reduced. The LV ejection fraction was 30 to 35%. No intra-ventricular gradient. Complications: No in-lab complications observed. Cardiac Cath Post Procedure Notes: Post Procedure Diagnosis: Angiographically normal coronary arteries. Blood Loss: Estimated blood loss during the procedure was 5 mls. Specimens Removed: Number of specimen(s) removed: none. Recommendations: Maximize medical therapy. Agressive risk factor modification efforts. Follow-up with cardiology clinic. Medical management of coronary artery disease. CONCLUSIONS: 1. Right coronary artery system dominance. 2. Normal coronaries. 3. Elevated LVeDP 34mmHg. 4. Moderate to severely reduced LV systolic function. No intra-ventricular gradient. ICD 10 Codes: Obstructive hypertrophic cardiomyopathy-I42.1 CPT Codes: Left Heart Cath (visualization of coronaries) and LV-19880; Moderate Sedation Services initial 15 minutes patient >5 years-28246; Moderate Sedation Services 1st additional 15 minutes patient >5 years-56139; Moderate Sedation Services 2nd additional 15 minutes patient >5 years-97265 [id number] Jaxson Osorio MD Performing Physician Final CONCLUSIONS: 1. Right coronary artery system dominance. 2. Normal coronaries. 3. Elevated LVeDP 34mmHg. 4. Moderate to severely reduced LV systolic function. No intra-ventricular gradient. Normal [facility] Cardiac catheterization stud yon 12-27-2024 CONCLUSIONS: 1. Right coronary artery system dominance. 2. Normal coronaries. 3. Elevated LVeDP 34mmHg. 4. Moderate to severely reduced LV systolic function. No intra-ventricular gradient. [facility] Core Layer Machine Operator [address] [place] [address] ext-[phone], Cardiovascular Catheterization Report Patient Name: MICHELLE MITCHELL Performing Physician: Kristel Osorio MD Study Date: 12/27/2024 Verifying Physician: Kristel Osorio MD MRN/PID: [id number] Forms Builder/Co-Scrub: Ordering Provider: Kristel OSORIO Date of /Age: 7 1980 / 44 years Forms Builder: Gender: F Fellow: Surgeon: Study: Left Heart Cath Indications: MICHELLE MITCHELL is a 44 year old female who presents with hypertension, hypertrophic cardiomyopathy and a chest pain assessment of typical angina. Cardiomyopathy. Informed Consent: Benefits, risks, and alternatives discussed with patient or authorized goodwill representative and consent was obtained. Procedure Description: After infiltration with 2% Lidocaine, the right femoral artery was cannulated with a modified Seldinger technique. Subsequently a 5 Kenyan sheath was placed in the right femoral artery. Selective coronary catheterization was performed using a 5 Fr catheter(s) exchanged over a guide wire to cannulate the coronary arteries. A 5 Fr Weott catheter was used for left and right coronary artery injections. Multiple injections of contrast were made into the left and right coronary arteries with angiograms recorded in multiple projections. After completion of the procedure, the arterial sheath was pulled and pressure was applied to the site. Coronary Angiography: The coronary circulation is right dominant. Left Main Coronary Artery: The left main coronary artery is a normal caliber vessel. The left main arises normally from the left coronary sinus of Valsalva and bifurcates into the LAD and circumflex coronary arteries. The left main coronary artery showed a normal vessel. Left Anterior Descending Coronary Artery Distribution: The left anterior descending coronary artery is a normal caliber vessel. The LAD arises normally from the left main coronary artery. The LAD demonstrated a normal vessel. The 1st diagonal branch is a normal caliber vessel. The 1st diagonal branch showed a normal vessel. The 2nd diagonal branch is a normal caliber vessel. The 2nd diagonal branch demonstrated a normal vessel. Circumflex Coronary Artery Distribution: The circumflex coronary artery is a normal caliber vessel. The circumflex arises normally from the left main coronary artery and terminates in the AV groove. The circumflex revealed a normal vessel. The 1st obtuse marginal branch is a normal caliber vessel. The 1st obtuse marginal branch showed a normal vessel. The 2nd obtuse marginal branch is a normal caliber vessel. The 2nd obtuse marginal branch demonstrated a normal vessel. Right Coronary Artery Distribution: The right coronary artery is a normal caliber vessel. The RCA arises normally from the right sinus of Valsalva. The RCA showed a normal vessel. The right posterolateral branch is a normal caliber vessel. The right posterolateral branch showed a normal vessel. The right posterior descending artery is a normal caliber vessel. The right posterior descending artery showed a normal vessel. Left Ventriculography: Global left ventricular systolic function was moderately to severely reduced. The LV ejection fraction was 30 to 35%. No intra-ventricular gradient. Complications: No in-lab complications observed. Cardiac Cath Post Procedure Notes: Post Procedure Diagnosis: Angiographically normal coronary arteries. Blood Loss: Estimated blood loss during the procedure was 5 mls. Specimens Removed: Number of specimen(s) removed: none. Recommendations: Maximize medical therapy. Agressive risk factor modification efforts. Follow-up with cardiology clinic. Medical management of coronary artery disease. CONCLUSIONS: 1. Right coronary artery system dominance. 2. Normal coronaries. 3. Elevated LVeDP 34mmHg. 4. Moderate to severely reduced LV systolic function. No intra-ventricular gradient. ICD 10 Codes: Obstructive hypertrophic cardiomyopathy-I42.1 CPT Codes: Left Heart Cath (visualization of coronaries) and LV-60134; Moderate Sedation Services initial 15 minutes patient >5 years-94308; Moderate Sedation Services 1st additional 15 minutes patient >5 years-76170; Moderate Sedation Services 2nd additional 15 minutes patient >5 years-36075 [id number] Jaxson Osorio MD Performing Physician Edith (more content not included)... Jaxson Smith MD - 12/27/2024 [facility] Core Layer Machine Operator [address] [place] [address] ext-[phone], Cardiovascular Catheterization Report Patient Name: MICHELLE MITCHELL Performing Physician: Kristel Osorio MD Study Date: 12/27/2024 Verifying Physician: Kristel Osorio MD MRN/PID: [id number] Forms Builder/Co-Scrub: Ordering Provider: Kristel OSORIO Date of /Age: 7 1980 / 44 years Forms Builder: Gender: F Fellow: Surgeon: Study: Left Heart Cath Indications: MICHELLE MITCHELL is a 44 year old female who presents with hypertension, hypertrophic cardiomyopathy and a chest pain assessment of typical angina. Cardiomyopathy. Informed Consent: Benefits, risks, and alternatives discussed with patient or authorized goodwill representative and consent was obtained. Procedure Description: After infiltration with 2% Lidocaine, the right femoral artery was cannulated with a modified Seldinger technique. Subsequently a 5 Kenyan sheath was placed in the right femoral artery. Selective coronary catheterization was performed using a 5 Fr catheter(s) exchanged over a guide wire to cannulate the coronary arteries. A 5 Fr Weott catheter was used for left and right coronary artery injections. Multiple injections of contrast were made into the left and right coronary arteries with angiograms recorded in multiple projections. After completion of the procedure, the arterial sheath was pulled and pressure was applied to the site. Coronary Angiography: The coronary circulation is right dominant. Left Main Coronary Artery: The left main coronary artery is a normal caliber vessel. The left main arises normally from the left coronary sinus of Valsalva and bifurcates into the LAD and circumflex coronary arteries. The left main coronary artery showed a normal vessel. Left Anterior Descending Coronary Artery Distribution: The left anterior descending coronary artery is a normal caliber vessel. The LAD arises normally from the left main coronary artery. The LAD demonstrated a normal vessel. The 1st diagonal branch is a normal caliber vessel. The 1st diagonal branch showed a normal vessel. The 2nd diagonal branch is a normal caliber vessel. The 2nd diagonal branch demonstrated a normal vessel. Circumflex Coronary Artery Distribution: The circumflex coronary artery is a normal caliber vessel. The circumflex arises normally from the left main coronary artery and terminates in the AV groove. The circumflex revealed a normal vessel. The 1st obtuse marginal branch is a normal caliber vessel. The 1st obtuse marginal branch showed a normal vessel. The 2nd obtuse marginal branch is a normal caliber vessel. The 2nd obtuse marginal branch demonstrated a normal vessel. Right Coronary Artery Distribution: The right coronary artery is a normal caliber vessel. The RCA arises normally from the right sinus of Valsalva. The RCA showed a normal vessel. The right posterolateral branch is a normal caliber vessel. The right posterolateral branch showed a normal vessel. The right posterior descending artery is a normal caliber vessel. The right posterior descending artery showed a normal vessel. Left Ventriculography: Global left ventricular systolic function was moderately to severely reduced. The LV ejection fraction was 30 to 35%. No intra-ventricular gradient. Complications: No in-lab complications observed. Cardiac Cath Post Procedure Notes: Post Procedure Diagnosis: Angiographically normal coronary arteries. Blood Loss: Estimated blood loss during the procedure was 5 mls. Specimens Removed: Number of specimen(s) removed: none. Recommendations: Maximize medical therapy. Agressive risk factor modification efforts. Follow-up with cardiology clinic. Medical management of coronary artery disease. ___ CONCLUSIONS: 1. Right coronary artery system dominance. 2. Normal coronaries. 3. Elevated LVeDP 34mmHg. 4. Moderate to severely reduced LV systolic function. No intra-ventricular gradient. ICD 10 Codes: Obstructive hypertrophic cardiomyopathy-I42.1 CPT Codes: Left Heart Cath (visualization of coronaries) and LV-42722; Moderate Sedation Services initial 15 minutes patient >5 years-85257; Moderate Sedation Services 1st additional 15 minutes patient >5 years-90485; Moderate Sedation Services 2nd additional 15 minutes patient >5 years-46073 [id number] Jaxson Osorio MD Performing Physician Final IMPRESSION: CONCLUSIONS: 1. Right coronary artery system dominance. 2. Normal coronaries. 3. Elevated LVeD (more content not included)... [facility] Work Phone: [facility] Work Phone: Natriuretic peptide B [Mass/ Vol]on 12-27-2024 Interpretation and review of laboratory results Abnormal [facility] Natriuretic peptide B (Bld) [Mass/Vol] 1895 pg/mL High 0 - 99 pg/mL [facility] <100 pg/mL - Heart failure unlikely 100-299 pg/mL - Intermediate probability of acute heart failure exacerbation. Correlate with clinical context and patient history. >=300 pg/mL - Heart Failure likely. Correlate with clinical context and patient history. BNP testing is performed using different testing methodology at [facility] than at [facility]. Direct result comparisons should only be made within the same method. [facility] Natriuretic peptide B (Bld) [Mass/Vol] 1895 pg/mL High 0-99 [facility] Comment on above: Order Comment: <100 pg/mL - Heart failure -172 pg/mL - Intermediate probability of acute heart failure exacerbation. Correlate with clinical context and patient history. >=300 pg/mL - Heart Failure likely. Correlate with clinical context and patient history.BNP testing is performed using different testing methodology at [facility] than at other [facility]. Direct result comparisons should only be made within the same method. Performed By: #### 5 8077-9 #### RODRIGUEZ AVIS ([id number]) [facility] ([facility]) [address] [place] [address] ALLIED HEALTHon 12-26-[address] [facility] ALP SerPl-cCncon 12-26-2024 ALP [Catalytic activity/Vol] 114 U/L Normal 34-123 [facility] Comment on above: Order Comment: Speci men Type: BLOOD SPECIMENOrdering Facility: [facility] Address: [address] [place] [address] Performed By: #### 6 768-6, [id number], 1987-07, 1741-08, K1 ####[facility]ORYCLIA [id number] [place] [address] [place] ALT SerPl-cCncon 12-26-2024 ALT [Catalytic activity/Vol] 19 U/L Normal 7-38 [facility] Comment on above: Order Comment: Speci men Type: BLOOD SPECIMENOrdering Facility: [facility] Address: [address] [place] [address] Performed By: #### 6 768-6, [id number], 1987-07, 1741-08, K1 ####[facility]ORATORYCLIA [id number] [address] STATES OF [facility] BETA HCG, QUANTITATIVE FOR E Don 12-26-2024 HCG.beta subunit Qn m[IU]/mL Normal <5.0 [facility] Comment on above: Order Comment: Speci men Type: BLOOD SPECIMENOrdering Facility: [facility] Address: [address] [place] [address] Result Comment: Nega tive Performed By: #### 3 3762-6, 24163-3, VOV5219, HCGED, 91965-8 ####[facility]ORATORYCLIA [id number] [address] STATES [place] CBC W Auto Differential pane l (Bld)on 12-26-2024 Basophils (Bld) [#/Vol] 0.07 10*3/uL Normal <0.11 [facility] Comment on above: Order Comment: Speci men Type: BLOOD SPECIMENOrdering Facility: [facility] Address: [address] [place] [address] Performed By: #### 5 7021-8 ####[facility]ORATORYCLIA [id number] [address] STATES OF [facility] Basophils/100 WBC (Bld) 0.6 % Normal [facility] Comment on above: Order Comment: Speci men Type: BLOOD SPECIMENOrdering Facility: [facility] Address: [address] [place] [address] Performed By: #### 5 7021-8 ####[facility] LABORATORYCLIA [id number] [place] [address] [facility] [place] Differential cell count method Nom (Bld) Auto Normal [facility] Comment on above: Order Comment: Speci men Type: BLOOD SPECIMENOrdering Facility: [facility] Address: [address] [place] [address] Performed By: #### 5 7021-8 ####[facility] LABORATORYCLIA [id number] [place] [address] [place] Eosinophils (Bld) [#/Vol] 0.11 10*3/uL Normal <0.46 [facility] Comment on above: Order Comment: Speci men Type: BLOOD SPECIMENOrdering Facility: [facility] Address: [address] [place] [address] Performed By: #### 5 7021-8 ####[facility] LABORATORYCLIA [id number] [address] [place] Eosinophils/100 WBC (Bld) 1.0 % Normal [facility] Comment on above: Order Comment: Speci men Type: BLOOD SPECIMENOrdering Facility: [facility] Address: [address] [place] [address] Performed By: #### 5 7021-8 ####[facility] LABORATORYCLIA [id number] [address] [place] Erythrocyte distribution width (RBC) [Ratio] 14.0 % Normal 11.5-15.0 [facility] Comment on above: Order Comment: Speci men Type: BLOOD SPECIMENOrdering Facility: [facility] Address: [address] [place] [address] Performed By: #### 5 7021-8 ####[facility] LABORATORYCLIA [id number] [address] OF [place] Hematocrit (Bld) [Volume fraction] 42.4 % Normal 36.0-46.0 [facility] Comment on above: Order Comment: Speci men Type: BLOOD SPECIMENOrdering Facility: [facility] Address: [address] [place] [address] Performed By: #### 5 7021-8 ####[facility] LABORATORYCLIA [id number] [place] [address] [place] Hemoglobin (Bld) [Mass/Vol] 13.7 g/dL Normal 11.5-15.5 [facility] Comment on above: Order Comment: Speci men Type: BLOOD SPECIMENOrdering Facility: [facility] Address: [address] [place] [address] Performed By: #### 5 7021-8 ####[facility] LABORATORYCLIA [id number] [place] [address] [place] Immature granulocytes (Bld) [#/Vol] 0.06 10*3/uL Normal <0.10 [facility] Comment on above: Order Comment: Speci men Type: BLOOD SPECIMENOrdering Facility: [facility] Address: [address] [place] [address] Performed By: #### 5 7021-8 ####[facility] LABORATORYCLIA [id number] [place] [address] [place] Immature granulocytes/100 WBC (Bld) 0.5 % Normal [facility] Comment on above: Order Comment: Speci men Type: BLOOD SPECIMENOrdering Facility: [facility] Address: [address] [place] [address] Performed By: #### 5 7021-8 ####[facility] LABORATORYCLIA [id number] [place] [address] [place] Lymphocytes (Bld) [#/Vol] 1.18 10*3/uL Normal 1.00-4.00 [facility] Comment on above: Order Comment: Speci men Type: BLOOD SPECIMENOrdering Facility: [facility] Address: [address] [place] [address] Performed By: #### 5 7021-8 ####[facility] LABORATORYCLIA [id number] [place] [address] [place] Lymphocytes/100 WBC (Bld) 10.5 % Normal [facility] Comment on above: Order Comment: Speci men Type: BLOOD SPECIMENOrdering Facility: [facility] Address: [address] [place] [address] Performed By: #### 5 7021-8 ####[facility] LABORATORYCLIA [id number] [address] MCH (RBC) [Entitic mass] 30.5 pg Normal 26.0-34.0 [facility] Comment on above: Order Comment: Speci men Type: BLOOD SPECIMENOrdering Facility: [facility] Address: [address] [place] [address] Performed By: #### 5 7021-8 ####[facility] LABORATORYCLIA [id number] [address] [place] MCHC (RBC) [Mass/Vol] 32.3 g/dL Normal 30.5-36.0 [facility] Comment on above: Order Comment: Speci men Type: BLOOD SPECIMENOrdering Facility: [facility] Address: [address] [place] [address] Performed By: #### 5 7021-8 ####[facility] LABORATORYCLIA [id number] [address] MCV (RBC) [Entitic vol] 94.4 fL Normal 80.0-100.0 [facility] Comment on above: Order Comment: Speci men Type: BLOOD SPECIMENOrdering Facility: [facility] Address: [address] [place] [address] Performed By: #### 5 7021-8 ####[facility] LABORATORYCLIA [id number] [address] Monocytes (Bld) [#/Vol] 0.39 10*3/uL Normal <0.87 [facility] Comment on above: Order Comment: Speci men Type: BLOOD SPECIMENOrdering Facility: [facility] Address: [address] [place] [address] Performed By: #### 5 7021-8 ####[facility] LABORATORYCLIA [id number] [address] Monocytes/100 WBC (Bld) 3.5 % Normal [facility] Comment on above: Order Comment: Speci men Type: BLOOD SPECIMENOrdering Facility: [facility] Address: [address] [place] [address] Performed By: #### 5 7021-8 ####[facility] LABORATORYCLIA [id number] [place] [address] [place] Neutrophils (Bld) [#/Vol] 9.45 10*3/uL High 1.45-7.50 [facility] Comment on above: Order Comment: Speci men Type: BLOOD SPECIMENOrdering Facility: [facility] Address: [address] [place] [address] Performed By: #### 5 7021-8 ####[facility] LABORATORYCLIA [id number] [address] STATES [place] Neutrophils/100 WBC (Bld) 83.9 % Normal [facility] Comment on above: Order Comment: Speci men Type: BLOOD SPECIMENOrdering Facility: [facility] Address: [address] [place] [address] Performed By: #### 5 7021-8 ####[facility] LABORATORYCLIA [id number] [place] [address] [place] Nucleated RBC (Bld) [#/Vol] 10*3/uL Normal <0.01 [facility] Comment on above: Order Comment: Speci men Type: BLOOD SPECIMENOrdering Facility: [facility] Address: [address] [place] [address] Performed By: #### 5 7021-8 ####[facility] LABORATORYCLIA [id number] [place] [address] [place] Nucleated RBC/100 WBC (Bld) [Ratio] 0.0 /[address] [facility] Comment on above: Order Comment: Speci men Type: BLOOD SPECIMENOrdering Facility: [facility] Address: [address] [place] [address] Performed By: #### 5 7021-8 ####[facility] LABORATORYCLIA [id number] [place] [address] [place] Platelet mean volume (Bld) [Entitic vol] 10.8 fL Normal 9.0-12.7 [facility] Comment on above: Order Comment: Speci men Type: BLOOD SPECIMENOrdering Facility: [facility] Address: [facility] [place] [address] Performed By: #### 5 7021-8 ####[facility] LABORATORYCLIA [id number] [address] [place] Platelets (Bld) [#/Vol] 272 10*3/uL Normal 150-400 [facility] Comment on above: Order Comment: Speci men Type: BLOOD SPECIMENOrdering Facility: [facility] Address: [facility] [place] [address] Performed By: #### 5 7021-8 ####[facility] LABORATORYCLIA [id number] [place] [address] [place] RBC (Bld) [#/Vol] 4.49 10*6/uL Normal 3.90-5.20 [facility] Comment on above: Order Comment: Speci men Type: BLOOD SPECIMENOrdering Facility: [facility] Address: [facility] [place] [address] Performed By: #### 5 7021-8 ####[facility] LABORATORYCLIA [id number] [address] [place] WBC (Bld) [#/Vol] 11.26 10*3/uL High 3.70-11.00 [facility] Comment on above: Order Comment: Speci men Type: BLOOD SPECIMENOrdering Facility: [facility] Address: [facility] [place] [address] Performed By: #### 5 7021-8 ####[facility] LABORATORYCLIA [id number] [place] [address] [place] [facility] [place] CNDSon 12-26-[address] [facility] CRP SerPl-mCncon 12-26-2024 CRP [Mass/Vol] mg/L Normal <0.9 [facility] Comment on above: Order Comment: Speci men Type: BLOOD SPECIMENOrdering Facility: [facility] Address: [address] [place], [place] [address] [address] Performed By: #### 6 768-6, [id number], 1988-5, 1742-6, K1 ####[facility] LABORATORYCLIA [id number] [place] [address] [place] CTA ABD/PELV W IVCONon 12-26 CTA ABD/PELV W IVCON Normal [facility] CTA CHEST (GATED) WO/W IVCON on 12-26-2024 CTA CHEST (GATED) WO/W IVCON Normal [facility] Comprehensive metabolic 2000 panelon 12-26-2024 Albumin [Mass/Vol] 4.7 g/dL Normal 3.9-4.9 [facility] Comment on above: Order Comment: Speci [facility] Type: BLOOD SPECIMENOrdering Facility: [facility] Address: [address] [place] [address] Performed By: #### 3 3762-6, 37394-6, [id number], HCGED, ####[facility] LABORATORYCLIA [id number] [place] [address] [place] ALP [Catalytic activity/Vol] Normal [facility] Comment on above: Order Comment: Speci men Type: BLOOD SPECIMENOrdering Facility: [facility] Address: [address] [place] [address] Result Comment: Unab le to assay due to interference from hemolysis. Suggest reorder as clinically indicated. Performed By: #### 3 3762-6, 50636-3, [id number], HCGED, ####[facility] LABORATORYCLIA [id number] [place] [address] [place] ALT [Catalytic activity/Vol] Normal [facility] Comment on above: Order Comment: Speci men Type: BLOOD SPECIMENOrdering Facility: [facility] Address: [address] [place] [address] Result Comment: Unab le to assay due to interference from hemolysis. Suggest reorder as clinically indicated. Performed By: #### 3 3762-6, 46937-5, [id number], HCGED, ####[facility]ORATORYCLIA [id number] [place] [address] [place] Anion gap [Moles/Vol] 14 mmol/L Normal 10-26 [facility] Comment on above: Order Comment: Speci men Type: BLOOD SPECIMENOrdering Facility: [facility] Address: [address] [place] [address] Performed By: #### 3 3762-6, 24874-8, [id number], HCGED, ####[facility]ATORYCLIA [id number] [place] [address] [place] AST [Catalytic activity/Vol] Normal [facility] Comment on above: Order Comment: Speci men Type: BLOOD SPECIMENOrdering Facility: [facility] Address: [address] [place] [address] Result Comment: Unab le to assay due to interference from hemolysis. Suggest reorder as clinically indicated. Performed By: #### 3 3762-6, 79350-1, [id number], HCGED, ####[facility]ORATORYCLIA [id number] [place] [address] [place] Bilirubin [Mass/Vol] 0.7 mg/dL Normal 0.2-1.3 [facility] Comment on above: Order Comment: Speci men Type: BLOOD SPECIMENOrdering Facility: [facility] Address: [address] [place] [address] Performed By: #### 3 3762-6, 57411-7, [id number], HCGED, ####[facility]ORATORYCLIA [id number] [place] [address] [place] Calcium [Mass/Vol] 9.8 mg/dL Normal 8.5-10.2 [facility] Comment on above: Order Comment: Speci men Type: BLOOD SPECIMENOrdering Facility: [facility] Address: [address] [place] [address] Performed By: #### 3 3762-6, 15154-2, [id number], HCGED, ####[facility]ORATORYCLIA [id number] [place] [address] [place] Chloride [Moles/Vol] 103 mmol/L Normal 98-107 [facility] Comment on above: Order Comment: Speci men Type: BLOOD SPECIMENOrdering Facility: [facility] Address: [address] [place] [address] Performed By: #### 3 3762-6, 32320-0, [id number], HCGED, ####[facility]ORATORYCLIA [id number] [address] [facility] CO2 [Moles/Vol] 20 mmol/L Low 22-30 [facility] Comment on above: Order Comment: Speci men Type: BLOOD SPECIMENOrdering Facility: [facility] Address: [address] [place] [address] Performed By: #### 3 3762-6, 67505-5, [id number], HCGED, ####[facility]ORATORYCLIA [id number] [place] [address] [place] Creatinine [Mass/Vol] 0.70 mg/dL Normal 0.58-0.96 [facility] Comment on above: Order Comment: Speci men Type: BLOOD SPECIMENOrdering Facility: [facility] Address: [address] [place] [address] Performed By: #### 3 3762-6, 61689-9, [id number], HCGED, ####[facility]ORATORYCLIA [id number] [place] [address] [place] eGFRcr SerPlBld CKD-EPI 2020 109 mL/min/1.73m??? Normal >=60 [facility] Comment on above: Order Comment: Speci men Type: BLOOD SPECIMENOrdering Facility: [facility] Address: [address] [place] [address] Result Comment: Vidal mated Glomerular Filtration Rate [...] accurately reflect actual GFR. Performed By: #### 3 3762-6, 01354-0, [id number], HCGED, 26320-2 ####[facility] LABORATORYCLIA [id number] [place] [address] [place] Glucose [Mass/Vol] 107 mg/dL High 74-99 [facility] Comment on above: Order Comment: David horton Type: BLOOD SPECIMENOrdering Facility: [facility] Address: [address] [place] [address] Result Comment: The [place] Diabetes Association (ADA) provides guidance for cutoff values for fasting glucose and random glucose. The ADA defines fasting as no caloric intake for at least 8 hours. Fasting plasma glucose results between 100 to 125 mg/dL indicate increased risk for diabetes (prediabetes).Fasting plasma glucose results greater than or equal to 126 mg/dL meet the criteria for diagnosis of diabetes. In the absence of unequivocal hyperglycemia, results should be confirmed by repeat testing. In a patient with classic symptoms of hyperglycemia or hyperglycemic crisis, random plasma glucose results greater than or equal to 200 mg/dL meet the criteria for diagnosis of diabetes.Reference: Standards of Medical Care in Diabetes 2016, [place] [employer]. Diabetes Care. 2016.39(Suppl 1). Performed By: #### 3 3762-6, 80027-3, [id number], HCGED, ####[facility]ORATORYCLIA [id number] [place] [address] [place] Potassium [Moles/Vol] Normal [facility] Comment on above: Order Comment: David horton Type: BLOOD SPECIMENOrdering Facility: [facility] Address: [address] [place] [address] Result Comment: Unab le to assay due to interference from hemolysis. Suggest reorder as clinically indicated. Performed By: #### 3 3762-6, 35780-2, [id number], HCGED, ####[facility] LABORATORYCLIA [id number] [place] [id number] [place] Protein [Mass/Vol] 8.4 g/dL High 6.3-8.0 [facility] Comment on above: Order Comment: David horton Type: BLOOD SPECIMENOrdering Facility: [facility] Address: [address] [place] [address] Performed By: #### 3 3762-6, 83065-6, [id number], HCGED, 62138-3 ####[facility] LABORATORYCLIA [id number] [place] [address] [place] Sodium [Moles/Vol] 137 mmol/L Normal 136-144 [facility] Comment on above: Order Comment: Speci men Type: BLOOD SPECIMENOrdering Facility: [facility] Address: [address] [place] [address] Performed By: #### 3 3762-6, 01627-3, [id number], HCGED, ####[facility]ORATORYCLIA [id number] [address] [place] Urea nitrogen [Mass/Vol] 11 mg/dL Normal 7-21 [facility] Comment on above: Order Comment: Speci men Type: BLOOD SPECIMENOrdering Facility: [facility] Address: [address] [place] [address] Performed By: #### 3 3762-6, 78724-8, [id number], HCGED, ####[facility]ORATORYCLIA [id number] [address] OF [facility] ED NOTEon 12-26-2024 ED NOTE HNO ID: [id number] Author: AJAY HAMILTON RN Service: ? Author Type: Registered Nurse Type: ED Notes Filed: 12/26/2024 18:36 Note Text: Report to given to Ariana on 2N. Normal [facility] ED NOTE HNO ID: [id number] Author: AJAY HAMILTON RN Service: ? Author Type: Registered Nurse Type: ED Notes Filed: 12/26/2024 18:28 Note Text: Gerald 2N supervisor in charge, notified of assigned bed Normal [facility] ED PROV NOTEon 12-26-[address] [facility] HIGH SENSITIVITY TROPONIN To n 12-26-2024 Troponin T.cardiac High sensitivity method [Mass/Vol] 28 ng/L High <12 [facility] Comment on above: Order Comment: Speci men Type: BLOOD SPECIMENOrdering Facility: [facility] Address: [address] [place] [address] Performed By: #### H STNT ####[facility] LABORATORYCLIA [id number] [place] [id number] [facility] [place] HIGH SENSITIVITY TROPONIN T (INITIAL)on 12-26-2024 Troponin T.cardiac High sensitivity method [Mass/Vol] Normal [facility] Comment on above: Order Comment: Speci men Type: BLOOD SPECIMENOrdering Facility: [facility] Address: [address] [place] [address] Result Comment: Unab le to assay due to interference from hemolysis. Suggest reorder as clinically indicated. Performed By: #### 3 3762-6, 31602-1, [id number], HCGED, ####[facility]ORATORYCLIA [id number] [place] [address] [place] HIGH SENSITIVITY TROPONIN T (SECOND)on 12-26-2024 Troponin T.cardiac High sensitivity method [Mass/Vol] 21 ng/L High <12 [facility] Comment on above: Order Comment: Speci men Type: BLOOD SPECIMENOrdering Facility: [facility] Address: [address] [place] [address] Performed By: #### 6 768-6, [id number], 1987-, 174-6, K1 ####[facility]ORATORYCLIA [id number] [address] [place] HIGH SENSITIVITY TROPONIN T (THIRD) 3 HRS AFTER INITIALon 12-26-2024 Troponin T.cardiac High sensitivity method [Mass/Vol] 25 ng/L High <12 [facility] Comment on above: Order Comment: Speci men Type: BLOOD SPECIMENOrdering Facility: [facility] Address: [address] [place] [address] Performed By: #### L [id number] ####[facility]ORATORYCLIA [id number] [place] [id number] [place] Magnesium SerPl-mCncon 12-26 Magnesium [Mass/Vol] 1.9 mg/dL Normal 1.7-2.3 [facility] Comment on above: Order Comment: Speci men Type: BLOOD SPECIMENOrdering Facility: [facility] Address: [address] [place] [address] Performed By: #### 3 3762-6, 01215-7, [id number], HCGED, ####[facility]ORATORYCLIA [id number] [place] [address] [place] NT-proBNP SerPl-mCncon 12-26 Natriuretic peptide.B prohormone N-Terminal [Mass/Vol] 3407 pg/mL High <125 [facility] Comment on above: Order Comment: David horton Type: BLOOD SPECIMENOrdering Facility: [facility] Address: [address] [place] [address] Performed By: #### 3 3762-6, 42149-7, [id number], [facility], ####[facility] LABORATORYCLIA [id number] [place] [id number] [place] [facility] POTASSIUMon 12-26-2024 Potassium [Moles/Vol] 4.1 mmol/L Normal 3.7-5.1 [facility] Comment on above: Order Comment: David horton Type: BLOOD SPECIMENOrdering Facility: [facility] Address: [address] [place] [address] Performed By: #### 6 768-6, [id number], 1988-5, 1742-6, K1 ####[facility]ORATORYCLIA [id number] [place] [id number] [place] PT panel Coag (PPP)on 2024 INR Coag (PPP) [Relative time] 1.0 {INR} Normal 0.9-1.3 [facility] Comment on above: Order Comment: David horton Type: BLOOD SPECIMENOrdering Facility: [facility] Address: [address] [place] [address] Result Comment: Nancy min K Antagonist (VKA) Therapeutic Range: INR 2 to 3 (Target INR of 2.5)Note: For patients treated with VKA drugs, such as warfarin, the [place] [employer] 2012 Guideline recommends a therapeutic INR range of 2 to 3 (target INR of 2.5). This recommendation includes high-risk patients with antiphospholipid syndrome with previous arterial or venous thromboembolism, current-generation mechanical or bioprosthetic aortic heart valve replacement.Note: Patients with mechanical aortic valve replacement and additional risk factors for thromboembolic events (atrial fibrillation, previous thromboembolism, LV dysfunction, hypercoagulable conditions) or an older generation mechanical AVR (i.e., ball in-Cage) or any mechanical MVR should have a INR therapeutic range of 2.5 to 3.5 (target INR of 3).Coby GH, et al. Chest 2012, 141:7S-47SNishelian TUNRER et al. [facility] 2017, 70: 252-289 Performed By: #### 3 4528-0, 43271-4 ####[facility]ORATORYCLIA [id number] [address] OF [facility] PT Coag (PPP) [Time] 10.8 s Normal 9.7-13.0 [facility] Comment on above: Order Comment: Speci men Type: BLOOD SPECIMENOrdering Facility: [facility] Address: [address] [place] [address] Performed By: #### 3 4528-0, 10352-6 ####[facility]ORATORYCLIA [id number] [address] OF [facility] Pacemaker Checkon 12-26-2024 Pacemaker Check Normal [facility] aPTT PPPon 12-26-2024 aPTT Coag (PPP) [Time] 25.4 s Normal 23.0-32.4 [facility] Comment on above: Order Comment: Speci men Type: BLOOD SPECIMENOrdering Facility: [facility] Address: [address] [place] [address] Performed By: #### 3 4528-0, 37990-7 ####[facility]ORATORYCLIA [id number] [address] OF [facility] Absolute lymphocyte countOrd ered By: Quang Myles on 12-12-2024 Lymphocytes Auto (Unsp spec) [#/Vol] 1.10 10*3/uL 0.83-4.51 [facility] Amylaseon 12-12-2024 SALMA 12 U/L Low 28-100 [facility] Comment on above: Performed By: #### L 501.2400, L100.0100, L500.4050, L501.2450, L501.6710, L101.9900 ####[facility] [address] [place], [address] Anion gap in Serum or Plasma Ordered By: Quang Shameka on 12-12-2024 Anion gap [Moles/Vol] 13 mmol/L 5- [facility] Automated lymphocyte count a s percentage of total leukocytesOrdered By: Quanglawrence Myles on 12-12-2024 Lymphocytes/100 WBC Auto (Unsp spec) 12.8 % Low 19- [facility] BUN/creatinine ratioOrdered By: Quanglawrence Myles on 12-12-2024 Urea nitrogen/Creatinine [Mass ratio] 18.0 mg/mg - [facility] Basophil percentageOrdered B y: Quanglawrence Myles on 12-12-2024 Basophils/100 WBC (Bld) 0.9 % 0-1 [facility] Bilirubin, totalOrdered By: Quanglawrence Myles on 12-12-2024 Bilirubin [Mass/Vol] 0.76 mg/dL 0.00-1.30 [facility] CBC W/Diff, Automatedon - Absolute Lymph 1.10 X10 3/uL Normal 0.83-4.51 [facility] Comment on above: Performed By: #### L 501.2400, L100.0100, L500.4050, L501.2450, L501.6710, L101.9900 ####[facility] [address] [place], [address] Absolute Neut 6.8 X10 3/uL Normal 2.0-7.7 [facility] Comment on above: Performed By: #### L 501.2400, L100.0100, L500.4050, L501.2450, L501.6710, L101.9900 ####[facility] [address] [place], [address] Basophils/100 WBC (Bld) 0.9 % Normal 0-1 [facility] Comment on above: Performed By: #### L 501.2400, L100.0100, L500.4050, L501.2450, L501.6710, L101.9900 ####[facility] [address] [place], [address] Eosinophils/100 WBC (Bld) 1.3 % Normal 0-5 [facility] Comment on above: Performed By: #### L 501.2400, L100.0100, L500.4050, L501.2450, L501.6710, L101.9900 ####[facility] [address] [place], [address] Erythrocyte distribution width (RBC) [Ratio] 14.6 % Normal 11.6-14.6 [facility] Comment on above: Performed By: #### L 501.2400, L100.0100, L500.4050, L501.2450, L501.6710, L101.9900 ####[facility] [address] [place], [address] Hematocrit (Bld) [Volume fraction] 46.9 % Normal 37-47 [facility] Comment on above: Performed By: #### L 501.2400, L100.0100, L500.4050, L501.2450, L501.6710, L101.9900 ####[facility] [address] [place], [address] Hemoglobin (Bld) [Mass/Vol] 15.0 g/dL Normal 12.0-15.0 [facility] Comment on above: Performed By: #### L 501.2400, L100.0100, L500.4050, L501.2450, L501.6710, L101.9900 ####[facility] [address] [place], [address] IG% 0.200 Normal 0.0-0.9 [facility] Comment on above: Result Comment: IG% - Immature Granulocytes (promyelocytes, myelocytes andmetamyelocytes) > 1% indicates that a LEFT SHIFT is Present. Performed By: #### L 501.2400, L100.0100, L500.4050, L501.2450, L501.6710, L101.9900 ####[facility] [address] [place], [address] Lymphocytes/100 WBC (Bld) 12.8 % Low 19-41 [facility] Comment on above: Performed By: #### L 501.2400, L100.0100, L500.4050, L501.2450, L501.6710, L101.9900 ####[facility] [address] [place], [address] MCH (RBC) [Entitic mass] 30.2 pg Normal 27.0-32.0 [facility] Comment on above: Performed By: #### L 501.2400, L100.0100, L500.4050, L501.2450, L501.6710, L101.9900 ####[facility] [address] [place], [address] MCHC (RBC) [Mass/Vol] 32.0 g/dL Normal 32-36 [facility] Comment on above: Performed By: #### L 501.2400, L100.0100, L500.4050, L501.2450, L501.6710, L101.9900 ####[facility] [address] [place], [address] MCV (RBC) [Entitic vol] 94.4 fL Normal 81-99 [facility] Comment on above: Performed By: #### L 501.2400, L100.0100, L500.4050, L501.2450, L501.6710, L101.9900 ####[facility] [address] [place], [address] Monocytes/100 WBC (Bld) 5.9 % Normal 0-10 [facility] Comment on above: Performed By: #### L 501.2400, L100.0100, L500.4050, L501.2450, L501.6710, L101.9900 ####[facility] [address] [place], [address] Neutrophils/100 WBC (Bld) 78.9 % High 47-70 [facility] Comment on above: Performed By: #### L 501.2400, L100.0100, L500.4050, L501.2450, L501.6710, L101.9900 ####[facility] [address] [place], [address] Nucleated RBC (Bld) [#/Vol] 0 10*3/uL Normal 0-5 [facility] Comment on above: Performed By: #### L 501.2400, L100.0100, L500.4050, L501.2450, L501.6710, L101.9900 ####[facility] [address] [place], [address] Platelet mean volume (Bld) [Entitic vol] 11.1 fL Normal 6.2-12.0 [facility] Comment on above: Performed By: #### L 501.2400, L100.0100, L500.4050, L501.2450, L501.6710, L101.9900 ####[facility] [address] [place], [address] Platelets (Bld) [#/Vol] 311 10*3/uL Normal 150-450 [facility] Comment on above: Performed By: #### L 501.2400, L100.0100, L500.4050, L501.2450, L501.6710, L101.9900 ####[facility] [address] [place], [address] RBC (Bld) [#/Vol] 4.97 10*6/uL Normal 4.2-5.4 [facility] Comment on above: Performed By: #### L 501.2400, L100.0100, L500.4050, L501.2450, L501.6710, L101.9900 ####[facility] [address] [place], [address] RDW SD 50.4 fl High 35.1-43.9 [facility] Comment on above: Performed By: #### L 501.2400, L100.0100, L500.4050, L501.2450, L501.6710, L101.9900 ####[facility] [address] [place], [address] WBC (Bld) [#/Vol] 8.6 10*3/uL Normal 4.4-11.0 [facility] Comment on above: Performed By: #### L 501.2400, L100.0100, L500.4050, L501.2450, L501.6710, L101.9900 ####[facility] [address] [place], [address] CRPon 12-12-2024 C-REACTIVE PROT 3.23 mg/L High 0.0-3.0 [facility] Comment on above: Performed By: #### L 501.2400, L100.0100, L500.4050, L501.2450, L501.6710, L101.9900 ####[facility] [address] [place], [address] Carbon dioxide, total [Moles /volume] in Central venous bloodOrdered By: Quang Myles on 12-12-2024 CO2 [Moles/Vol] 22.3 mmol/L 21.0-32.0 [facility] Chloride assayOrdered By: Ra treva Myles on 12-12-2024 Chloride [Moles/Vol] 100 mmol/L 98-108 [facility] Comprehensive Metabolic Prof ilon 12-12-2024 Albumin [Mass/Vol] 4.6 g/dL Normal 3.5-5.0 [facility] Comment on above: Performed By: #### L 501.2400, L100.0100, L500.4050, L501.2450, L501.6710, L101.9900 ####[facility] [address] [place], [address] Albumin/Globulin [Mass ratio] 1.4 {ratio} Normal 0.9-2.4 [facility] Comment on above: Performed By: #### L 501.2400, L100.0100, L500.4050, L501.2450, L501.6710, L101.9900 ####[facility] [address] [place], [address] ALK PHOS 141 U/L High 35-104 [facility] Comment on above: Performed By: #### L 501.2400, L100.0100, L500.4050, L501.2450, L501.6710, L101.9900 ####[facility] [address] [place], [address] ALT [Catalytic activity/Vol] 28 U/L Normal <=34 [facility] Comment on above: Performed By: #### L 501.2400, L100.0100, L500.4050, L501.2450, L501.6710, L101.9900 ####[facility] [address] [place], [address] AST [Catalytic activity/Vol] 33 U/L High <=31 [facility] Comment on above: Performed By: #### L 501.2400, L100.0100, L500.4050, L501.2450, L501.6710, L101.9900 ####[facility] [address] [place], [address] Bilirubin [Mass/Vol] 0.76 mg/dL Normal 0.00-1.30 [facility] Comment on above: Performed By: #### L 501.2400, L100.0100, L500.4050, L501.2450, L501.6710, L101.9900 ####[facility] [address] [place], [address] BUN/CRE 18.0 RATIO Normal 10-20 [facility] Comment on above: Performed By: #### L 501.2400, L100.0100, L500.4050, L501.2450, L501.6710, L101.9900 ####[facility] [address] [place], [address] Calcium [Mass/Vol] 10.0 mg/dL Normal 7.6-11.0 [facility] Comment on above: Performed By: #### L 501.2400, L100.0100, L500.4050, L501.2450, L501.6710, L101.9900 ####[facility] [address] [place], [address] Chloride [Moles/Vol] 100 mmol/L Normal 98-108 [facility] Comment on above: Performed By: #### L 501.2400, L100.0100, L500.4050, L501.2450, L501.6710, L101.9900 ####[facility] [address] [place], [address] CO2 [Moles/Vol] 22.3 mmol/L Normal 21.0-32.0 [facility] Comment on above: Performed By: #### L 501.2400, L100.0100, L500.4050, L501.2450, L501.6710, L101.9900 ####[facility] [address] [place], [address] Creatinine [Mass/Vol] 0.81 mg/dL Normal 0.70-1.20 [facility] Comment on above: Performed By: #### L 501.2400, L100.0100, L500.4050, L501.2450, L501.6710, L101.9900 ####[facility] [address] [place], [address] GAP 13 Normal 5-15 [facility] Comment on above: Performed By: #### L 501.2400, L100.0100, L500.4050, L501.2450, L501.6710, L101.9900 ####[facility] [address] [place], [address] GFR/1.73 sq M.predicted among non-blacks MDRD (S/P/Bld) [Vol rate/Area] 91 mL/min/{1.73_m2} Normal >60 [facility] Comment on above: Result Comment: mL/m in/1.73m2 CKD-EPI Creatinine Equation (2020) Performed By: #### L 501.2400, L100.0100, L500.4050, L501.2450, L501.6710, L101.9900 ####[facility] [address] [place], [address] Globulin (S) [Mass/Vol] 3.3 g/dL Normal 2.2-4.2 [facility] Comment on above: Performed By: #### L 501.2400, L100.0100, L500.4050, L501.2450, L501.6710, L101.9900 ####[facility] [address] [place], [address] Glucose [Mass/Vol] 85 mg/dL Normal 70-99 [facility] Comment on above: Performed By: #### L 501.2400, L100.0100, L500.4050, L501.2450, L501.6710, L101.9900 ####[facility] [address] [place], [address] Potassium [Moles/Vol] 4.0 mmol/L Normal 3.3-5.1 [facility] Comment on above: Performed By: #### L 501.2400, L100.0100, L500.4050, L501.2450, L501.6710, L101.9900 ####[facility] [address] [place], [address] Sodium [Moles/Vol] 135 mmol/L Normal 133-145 [facility] Comment on above: Performed By: #### L 501.2400, L100.0100, L500.4050, L501.2450, L501.6710, L101.9900 ####[facility] [address] [place], [address] T PROT 7.9 g/dL Normal 5.9-8.4 [facility] Comment on above: Performed By: #### L 501.2400, L100.0100, L500.4050, L501.2450, L501.6710, L101.9900 ####[facility] [address] [place], [address] Urea nitrogen [Mass/Vol] 15 mg/dL Normal 4-19 [facility] Comment on above: Performed By: #### L 501.2400, L100.0100, L500.4050, L501.2450, L501.6710, L101.9900 ####[facility] [address] [place], [address] Eosinophil percentageOrdered By: Quang Friend on 12-12-2024 Eosinophils/100 WBC (Bld) 1.3 % 0-5 [facility] Erythrocyte Sed Rateon 12-12 SED RATE 32 mm/hr High 0-30 [facility] Comment on above: Performed By: #### L 501.2400, L100.0100, L500.4050, L501.2450, L501.6710, L101.9900 ####[facility] [address] [place], [address] Erythrocyte distribution wid th ratioOrdered By: Quang Myles on 12-12-2024 Erythrocyte distribution width (RBC) [Ratio] 14.6 % 11.6-14.6 [facility] Erythrocyte distribution wid th standard deviationOrdered By: Quang Myles on 12-12-2024 Erythrocyte distribution width (RBC) [Ratio] 50.4 fl High 35.1-43.9 [facility] Erythrocyte sedimentation ra teOrdered By: Quang Myles on 12-12-2024 ESR (Bld) [Velocity] 32 mm/h High 0-30 [facility] Gastroenterology Visit Repor ton 12-12-2024 Gastroenterology Visit Report Normal [facility] Glomerular filtration rate ( GFR) estimation/1.73 sq m using serum, plasma, or whole bOrdered By: Quang Myles on 12-12-2024 GFR/1.73 sq M.predicted among non-blacks MDRD (S/P/Bld) [Vol rate/Area] 91 mL/min/{1.73_m2} >60 [facility] Hematocrit Auto (Bld) [Volum e fraction]Ordered By: Quang Myles on 12-12-2024 Hematocrit (Bld) [Volume fraction] 46.9 % 37-47 [facility] Hemoglobin measurementOrdere d By: Quang Myles on 12-12-2024 Hemoglobin (Bld) [Mass/Vol] 15.0 g/dL 12.0-15.0 [facility] Immature granulocytes/100 WB C Auto (Bld)Ordered By: Quang Myles on 12-12-2024 Immature granulocytes/100 WBC (Bld) 0.200 % 0.0-0.9 [facility] Lipaseon 12-12-2024 Lipase [Catalytic activity/Vol] 17 U/L Normal 13-75 [facility] Comment on above: Result Comment: Liam rader note:LIPASE revised reference range effective 22.New Lipase methodology. Expected to produce lower valuesthan the previous assay method.NEW Reference Range: 13 - 75 U/L Performed By: #### L 501.2400, L100.0100, L500.4050, L501.2450, L501.6710, L101.9900 ####[facility] [address] [place], [address] MCV (mean corpuscular volume ) determinationOrdered By: Quang Myles on 12-12-2024 MCV (RBC) [Entitic vol] 94.4 fL 81-99 [facility] Mean corpuscular hemoglobin (MCH) determinationOrdered By: Quang Myles on 12-12-2024 MCH (RBC) [Entitic mass] 30.2 pg 27.0-32.0 [facility] Monocyte percentageOrdered B y: Quang Myles on 12-12-2024 Monocytes/100 WBC (Bld) 5.9 % 0-10 [facility] Neutrophil percentageOrdered By: Quang Myles on 12-12-2024 Neutrophils/100 WBC (Bld) 78.9 % High 47-70 [facility] No Panel InformationOrdered By: Quang Myles on 12-12-2024 33 U/L High <32 [facility] Platelet countOrdered By: Ra treva Myles on 12-12-2024 Platelets (Bld) [#/Vol] 311 10*3/uL 150-450 [facility] Potassium measurement (mass/ volume)Ordered By: Quang Myles on 12-12-2024 Potassium (Unsp spec) [Mass/Vol] 4.0 mmol/L 3.3-5.1 [facility] RBC Auto (Bld) [#/Vol]Ordere d By: Quang Myles on 12-12-2024 RBC (Bld) [#/Vol] 4.97 10*6/uL 4.2-5.4 [facility] Serum creatinine measurement (mass/volume)Ordered By: Quang Myles on 12-12-2024 Creatinine [Mass/Vol] 0.81 mg/dL 0.70-1.20 [facility] Serum globulin measurementOr dered By: Quang Myles on 12-12-2024 Globulin (S) [Mass/Vol] 3.3 g/dL 2.2-4.2 [facility] Serum glucose measurement (m ass/volume)Ordered By: Quang Myles on 12-12-2024 Glucose [Mass/Vol] 85 mg/dL 70-99 [facility] Serum or plasma C reactive p rotein measurement (mass/volume)Ordered By: Quang Myles on 12-12-2024 CRP [Mass/Vol] 3.23 mg/L High 0.0-3.0 [facility] Serum or plasma alanine hair otransferase (ALT) measurementOrdered By: Quang Myles on 12-12-2024 ALT [Catalytic activity/Vol] 28 U/L <35 [facility] Serum or plasma albumin leslie urement (mass/volume)Ordered By: Quang Myles on 12-12-2024 Albumin [Mass/Vol] 4.6 g/dL 3.5-5.0 [facility] Serum or plasma albumin/glob ulin mass ratioOrdered By: Quang Myles on 12-12-2024 Albumin/Globulin [Mass ratio] 1.4 {ratio} 0.9-2.4 [facility] Serum or plasma alkaline delfin sphatase measurementOrdered By: Quang Myles on 12-12-2024 ALP [Catalytic activity/Vol] 141 U/L High 35-104 [facility] Serum or plasma amylase leslie urement (enzymatic activity/volume)Ordered By: Quang Myles on 12-12-2024 Amylase [Catalytic activity/Vol] 12 U/L Low 28-100 [facility] Serum or plasma calcium leslie urement (mass/volume)Ordered By: Quang Myles on 12-12-2024 Calcium [Mass/Vol] 10.0 mg/dL 7.6-11.0 [facility] Serum or plasma urea nitroge n measurement (mass/volume)Ordered By: Quang Myles on 12-12-2024 Urea nitrogen [Mass/Vol] 15 mg/dL 4-19 [facility] Sodium levelOrdered By: Wendy Au on 12-12-2024 Sodium [Moles/Vol] 135 mmol/L 133-145 [facility] Total proteinOrdered By: Luis Myles on 12-12-2024 Protein [Mass/Vol] 7.9 g/dL 5.9-8.4 [facility] White blood cell (WBC) count Ordered By: Quang Shameka on 12-12-2024 WBC (Bld) [#/Vol] 8.6 10*3/uL 4.4-11.0 [facility] Influenza virus A and B and SARS-CoV-2 (COVID-19) and Respiratory syncytial virus RNAOrdered By: Rubin Briggs on 11-28-2024 SARS-CoV-2 (COVID-19) RNA BIMAL+probe Ql (Unsp spec) [facility] M100.678on 11-28-2024 M100.678 Pending SARS-CoV-2 (COVID 19) Negative INFLUENZA A Negative INFLUENZA B Negative RSV PCR Negative Normal [facility] Comment on above: Performed By: #### M 100.678 ####[facility] [address] [place], [place], [id number] 12 Lead EKGon 11-27-2024 12 Lead EKG Normal [facility] 36on 11-27-2024 36 Your fax has been successfully sent to Dr. Wilkinson at [phone]. 11/27/2024 7:11:18 PM Origin Record Created by KELLY 11/27/2024 7:11:28 PM Conversion [[id number]] Type: application/x-pcl G3 to TIFF #1: Success [image/g3] (36ms) Image Optimization #1: Success [image/tiff] (78ms) PCL6 #1: Success [image/tiff] (501ms) ([facility]-[id number]:WORKSRV2) 11/27/2024 7:11:39 PM Conversion Successfully created cover sheet. Type: application/vnd.openxmlf ormats-officedocument. rdprocessingml.document G3 to TIFF #1: Success [image/g3] (10ms) GhostScript TIFF #1: Success [image/tiff] (65ms) Resubmitted: [application/postscript] Word Automation #1: Success [image/g3] (1719ms) ([facility]-[id number]:WORKSRV2) 11/27/2024 7:12:01 PM Transmission Record Sent to [id number] with remote ID "[id number]" Result: Success Page record: 1 - 3 Elapsed time: 01:13 on channel 54 Normal [facility] 36 Reason for Dispositi on [1] Chest pain lasts > 5 minutes AND [2] age > 44 Protocols used: Chest Gyrk-JTMFV-UT S: Pt calling [facility] c/o chest pain and worsening difficulty breathing. B: Symptoms began 11/24/2024. A: Pt c/o chest pain with moderate to severe difficulty breathing. States her lips are price. She had ESRP done last week. Was seen in [facility] ED for same on 11/25/24 and had labs and a CT done, patient told everything was fine but breathing is much worse. R: Advised pt to hang up now and dial 911. She agreed. Normal [facility] Absolute lymphocyte countOrd ered By: Rubin Briggs on 11-27-2024 Lymphocytes Auto (Unsp spec) [#/Vol] 1.39 10*3/uL 0.83-4.51 [facility] Anion gap in Serum or Plasma Ordered By: Rubin Briggs on 11-27-2024 Anion gap [Moles/Vol] 14 mmol/L 5-15 [facility] Automated lymphocyte count a s percentage of total leukocytesOrdered By: Rubin Briggs on 11-27-2024 Lymphocytes/100 WBC Auto (Unsp spec) 11.3 % Low 19-41 [facility] BUN/creatinine ratioOrdered By: Rubin Briggs on 11-27-2024 Urea nitrogen/Creatinine [Mass ratio] 12.7 mg/mg 10-20 [facility] Basic Metabolic Profile (BMP )on 11-27-2024 BUN/CRE 12.7 RATIO Normal - [facility] Comment on above: Performed By: #### L 500.2500, L100.0100 ####[facility] [address] [place], [address] Calcium [Mass/Vol] 9.3 mg/dL Normal 7.6-11.0 [facility] Comment on above: Performed By: #### L 500.2500, L100.0100 ####[facility] [address] [place], [address] Chloride [Moles/Vol] 103 mmol/L Normal 98-108 [facility] Comment on above: Performed By: #### L 500.2500, L100.0100 ####[facility] [address] [place], [address] CO2 [Moles/Vol] 17.7 mmol/L Low 21.0-32.0 [facility] Comment on above: Performed By: #### L 500.2500, L100.0100 ####[facility] [address] [place], [address] Creatinine [Mass/Vol] 0.79 mg/dL Normal 0.70-1.20 [facility] Comment on above: Performed By: #### L 500.2500, L100.0100 ####[facility] [address] [place], [address] ECRCL 77.66 ml/min Normal 50-250 [facility] Comment on above: Performed By: #### L 500.2500, L100.0100 ####[facility] [address] [place], [address] GAP 14 Normal 5-15 [facility] Comment on above: Performed By: #### L 500.2500, L100.0100 ####[facility] [address] [place], [address] GFR/1.73 sq M.predicted among non-blacks MDRD (S/P/Bld) [Vol rate/Area] 94 mL/min/{1.73_m2} Normal >60 [facility] Comment on above: Result Comment: mL/m in/1.73m2 CKD-EPI Creatinine Equation (2020) Performed By: #### L 500.2500, L100.0100 ####[facility] [address] [place], [address] Glucose [Mass/Vol] 121 mg/dL High 70-99 [facility] Comment on above: Performed By: #### L 500.2500, L100.0100 ####[facility] [address] [place], [address] Potassium [Moles/Vol] 3.8 mmol/L Normal 3.3-5.1 [facility] Comment on above: Result Comment: Hemo lysis present, Results??could be affected.?? Performed By: #### L 500.2500, L100.0100 ####[facility] [address] [place], [address] Sodium [Moles/Vol] 135 mmol/L Normal 133-145 [facility] Comment on above: Performed By: #### L 500.2500, L100.0100 ####[facility] [address] [place], [address] Urea nitrogen [Mass/Vol] 10 mg/dL Normal 4-19 [facility] Comment on above: Performed By: #### L 500.2500, L100.0100 ####[facility] [address] [place], [address] Basophil percentageOrdered B y: Rubin Chaoleonides on 11-27-2024 Basophils/100 WBC (Bld) 0.5 % 0-1 [facility] CBC W/Diff, Automatedon 11-12 Absolute Lymph 1.39 X10 3/uL Normal 0.83-4.51 [facility] Comment on above: Performed By: #### L 500.2500, L100.0100 ####[facility] [address] [place], [address] Absolute Neut 9.8 X10 3/uL High 2.0-7.7 [facility] Comment on above: Performed By: #### L 500.2500, L100.0100 ####[facility] [address] [place], [address] Basophils/100 WBC (Bld) 0.5 % Normal 0-1 [facility] Comment on above: Performed By: #### L 500.2500, L100.0100 ####[facility] [address] [place], [address] Eosinophils/100 WBC (Bld) 1.3 % Normal 0-5 [facility] Comment on above: Performed By: #### L 500.2500, L100.0100 ####[facility] [address] [place], [address] Erythrocyte distribution width (RBC) [Ratio] 15.0 % High 11.6-14.6 [facility] Comment on above: Performed By: #### L 500.2500, L100.0100 ####[facility] [address] [place], [address] Hematocrit (Bld) [Volume fraction] 38.6 % Normal 37-47 [facility] Comment on above: Performed By: #### L 500.2500, L100.0100 ####[facility] [address] [place], [address] Hemoglobin (Bld) [Mass/Vol] 12.6 g/dL Normal 12.0-15.0 [facility] Comment on above: Performed By: #### L 500.2500, L100.0100 ####[facility] [address] [place], [address] IG% 0.400 Normal 0.0-0.9 [facility] Comment on above: Result Comment: IG% - Immature Granulocytes (promyelocytes, myelocytes andmetamyelocytes) > 1% indicates that a LEFT SHIFT is Present. Performed By: #### L 500.2500, L100.0100 ####[facility] [address] [place], [address] Lymphocytes/100 WBC (Bld) 11.3 % Low 19-41 [facility] Comment on above: Performed By: #### L 500.2500, L100.0100 ####[facility] [address] [place], [address] MCH (RBC) [Entitic mass] 30.4 pg Normal 27.0-32.0 [facility] Comment on above: Performed By: #### L 500.2500, L100.0100 ####[facility] [address] [place], [address] MCHC (RBC) [Mass/Vol] 32.6 g/dL Normal 32-36 [facility] Comment on above: Performed By: #### L 500.2500, L100.0100 ####[facility] [address] [place], [address] MCV (RBC) [Entitic vol] 93.2 fL Normal 81-99 [facility] Comment on above: Performed By: #### L 500.2500, L100.0100 ####[facility] [address] [place], [address] Monocytes/100 WBC (Bld) 6.2 % Normal 0-10 [facility] Comment on above: Performed By: #### L 500.2500, L100.0100 ####[facility] [address] [place], [address] Neutrophils/100 WBC (Bld) 80.3 % High 47-70 [facility] Comment on above: Performed By: #### L 500.2500, L100.0100 ####[facility] [address] [place], [address] Nucleated RBC (Bld) [#/Vol] 0 10*3/uL Normal 0-5 [facility] Comment on above: Performed By: #### L 500.2500, L100.0100 ####[facility] [address] [place], [address] Platelet mean volume (Bld) [Entitic vol] 10.7 fL Normal 6.2-12.0 [facility] Comment on above: Performed By: #### L 500.2500, L100.0100 ####[facility] [address] [place], [address] Platelets (Bld) [#/Vol] 241 10*3/uL Normal 150-450 [facility] Comment on above: Performed By: #### L 500.2500, L100.0100 ####[facility] [address] [place], [address] RBC (Bld) [#/Vol] 4.14 10*6/uL Low 4.2-5.4 [facility] Comment on above: Performed By: #### L 500.2500, L100.0100 ####[facility] [address] [place], [address] RDW SD 51.3 fl High 35.1-43.9 [facility] Comment on above: Performed By: #### L 500.2500, L100.0100 ####[facility] [address] [place], [address] WBC (Bld) [#/Vol] 12.3 10*3/uL High 4.4-11.0 [facility] Comment on above: Performed By: #### L 500.2500, L100.0100 ####[facility] [address] [place], [address] Carbon dioxide, total [Moles /volume] in Central venous bloodOrdered By: Rubin Briggs on 11-27-2024 CO2 [Moles/Vol] 17.7 mmol/L Low 21.0-32.0 [facility] Chest PA and Lateralon 11-27 Chest PA and Lateral Normal [facility] Chloride assayOrdered By: Breanne Briggs on 11-27-2024 Chloride [Moles/Vol] 103 mmol/L 98-108 [facility] Emergency Department Summary on 11-27-2024 Emergency Department Summary Normal [facility] Eosinophil percentageOrdered By: Rubin Briggs on 11-27-2024 Eosinophils/100 WBC (Bld) 1.3 % 0-5 [facility] Erythrocyte distribution wid th ratioOrdered By: Rubin Briggs on 11-27-2024 Erythrocyte distribution width (RBC) [Ratio] 15.0 % High 11.6-14.6 [facility] Erythrocyte distribution wid th standard deviationOrdered By: Rubin Briggs on 11-27-2024 Erythrocyte distribution width (RBC) [Ratio] 51.3 fl High 35.1-43.9 [facility] Glomerular filtration rate ( GFR) estimation/1.73 sq m using serum, plasma, or whole bOrdered By: Rubin Briggs on 11-27-2024 GFR/1.73 sq M.predicted among non-blacks MDRD (S/P/Bld) [Vol rate/Area] 94 mL/min/{1.73_m2} >60 [facility] Hematocrit Auto (Bld) [Volum e fraction]Ordered By: Rubin Briggs on 11-27-2024 Hematocrit (Bld) [Volume fraction] 38.6 % 37-47 [facility] Hemoglobin measurementOrdere d By: Rubin Briggs on 11-27-2024 Hemoglobin (Bld) [Mass/Vol] 12.6 g/dL 12.0-15.0 [facility] Immature granulocytes/100 WB C Auto (Bld)Ordered By: Rubin Briggs on 11-27-2024 Immature granulocytes/100 WBC (Bld) 0.400 % 0.0-0.9 [facility] Influenza virus A and B and SARS-CoV-2 (COVID-19) and Respiratory syncytial virus RNAOrdered By: Rubin Briggs on 11-27-2024 SARS-CoV-2 (COVID-19) RNA BIMAL+probe Ql (Unsp spec) [facility] MCV (mean corpuscular volume ) determinationOrdered By: Rubin Briggs on 11-27-2024 MCV (RBC) [Entitic vol] 93.2 fL 81-99 [facility] Mean corpuscular hemoglobin (MCH) determinationOrdered By: Rubin Briggs on 11-27-2024 MCH (RBC) [Entitic mass] 30.4 pg 27.0-32.0 [facility] Monocyte percentageOrdered B y: Rubin Briggs on 11-27-2024 Monocytes/100 WBC (Bld) 6.2 % 0-10 [facility] Natriuretic peptide.B prohor abbey N-Terminal [Mass/volume] in Serum or PlasmaOrdered By: Rubin Briggs on 11-27-2024 Natriuretic peptide.B prohormone N-Terminal [Mass/Vol] 3112 pg/mL High <450 [facility] Neutrophil percentageOrdered By: Rubin Briggs on 11-27-2024 Neutrophils/100 WBC (Bld) 80.3 % High 47-70 [facility] Platelet countOrdered By: Breanne Briggs on 11-27-2024 Platelets (Bld) [#/Vol] 241 10*3/uL 150-450 [facility] Potassium measurement (mass/ volume)Ordered By: Rubin Briggs on 11-27-2024 Potassium (Unsp spec) [Mass/Vol] 3.8 mmol/L 3.3-5.1 [facility] Pro- Brain NATRIURETIC PEPTI Kevin 11-27-2024 Natriuretic peptide B (Bld) [Mass/Vol] 3112 pg/mL High <=450 [facility] Comment on above: Result Comment: Hear t Failure Unlikely: < 300 pg/mLHeart Failure Likely< 50 Years: > 450 pg/mL50-75 Years: > 900 pg/mL>75 Years: > 1800 pg/mL Performed By: #### L 742.8689 ####[facility] [address] [place], [address] RBC Auto (Bld) [#/Vol]Ordere d By: Rubin Briggs on 11-27-2024 RBC (Bld) [#/Vol] 4.14 10*6/uL Low 4.2-5.4 [facility] Serum creatinine measurement (mass/volume)Ordered By: Rubin Brgigs on 11-27-2024 Creatinine [Mass/Vol] 0.79 mg/dL 0.70-1.20 [facility] Serum glucose measurement (m ass/volume)Ordered By: Rubin Briggs on 11-27-2024 Glucose [Mass/Vol] 121 mg/dL High 70-99 [facility] Serum or plasma calcium leslie urement (mass/volume)Ordered By: Rubin Briggs on 11-27-2024 Calcium [Mass/Vol] 9.3 mg/dL 7.6-11.0 [facility] Serum or plasma urea nitroge n measurement (mass/volume)Ordered By: Rubin Briggs on 11-27-2024 Urea nitrogen [Mass/Vol] 10 mg/dL 4-19 [facility] Sodium levelOrdered By: Rubin Briggs on 11-27-2024 Sodium [Moles/Vol] 135 mmol/L 133-145 [facility] White blood cell (WBC) count Ordered By: Rubin Briggs on 11-27-2024 WBC (Bld) [#/Vol] 12.3 10*3/uL High 4.4-11.0 [facility] Abdomen/Pelvis W IV Cont ONL Yon 11-25-2024 Abdomen/Pelvis W IV Cont ONLY Normal [facility] Absolute lymphocyte countOrd ered By: Carlos Nair on 11-25-2024 Lymphocytes Auto (Unsp spec) [#/Vol] 0.74 10*3/uL Low 0.83-4.51 [facility] Anion gap in Serum or Plasma Ordered By: Carlos Nair on 11-25-2024 Anion gap [Moles/Vol] 11 mmol/L 5-15 [facility] BUN/creatinine ratioOrdered By: Carlos Nair on 11-25-2024 Urea nitrogen/Creatinine [Mass ratio] 7.1 mg/mg Low 10-20 [facility] Basophil percentageOrdered B y: Carlos Nair on 11-25-2024 Basophils/100 WBC (Bld) 0.5 % 0-1 [facility] Bilirubin Test strip Ql (U)O rdered By: Carlos Ramans on 11-25-2024 Bilirubin Ql (U) Negative Negative [facility] Bilirubin, totalOrdered By: Carlos Jeffriesrus on 11-25-2024 Bilirubin [Mass/Vol] 0.81 mg/dL 0.00-1.30 [facility] Blood platelets count (numbe r/volume)Ordered By: Carlos Korey on 11-25-2024 Platelets (Bld) [#/Vol] 227 10*3/uL 150-450 [facility] CBC W/Diff, Automatedon 11-12 Absolute Lymph 0.74 X10 3/uL Low 0.83-4.51 [facility] Comment on above: Performed By: #### L 500.4050, L501.2450, L503.6005, L100.0100 ####[facility] [address] [place], [address] Absolute Neut 9.3 X10 3/uL High 2.0-7.7 [facility] Comment on above: Performed By: #### L 500.4050, L501.2450, L503.6005, L100.0100 ####[facility] [address] [place], [address] IG% 0.300 Normal 0.0-0.9 [facility] Comment on above: Result Comment: IG% - Immature Granulocytes (promyelocytes, myelocytes andmetamyelocytes) > 1% indicates that a LEFT SHIFT is Present. Performed By: #### L 500.4050, L501.2450, L503.6005, L100.0100 ####[facility] [address] [place], [address] Basophils/100 WBC (Bld) 0.5 % Normal 0-1 [facility] Comment on above: Performed By: #### L 500.4050, L501.2450, L503.6005, L100.0100 ####[facility] [address] [place], [address] Eosinophils/100 WBC (Bld) 1.3 % Normal 0-5 [facility] Comment on above: Performed By: #### L 500.4050, L501.2450, L503.6005, L100.0100 ####[facility] [address] [place], [address] Erythrocyte distribution width (RBC) [Ratio] 15.4 % High 11.6-14.6 [facility] Comment on above: Performed By: #### L 500.4050, L501.2450, L503.6005, L100.0100 ####[facility] [address] [place], [address] Lymphocytes/100 WBC (Bld) 6.8 % Low 19-41 [facility] Comment on above: Performed By: #### L 500.4050, L501.2450, L503.6005, L100.0100 ####[facility] [address] [place], [address] Monocytes/100 WBC (Bld) 6.4 % Normal 0-10 [facility] Comment on above: Performed By: #### L 500.4050, L501.2450, L503.6005, L100.0100 ####[facility] [address] [place], [address] Neutrophils/100 WBC (Bld) 84.7 % High 47-70 [facility] Comment on above: Performed By: #### L 500.4050, L501.2450, L503.6005, L100.0100 ####[facility] [address] [place], [address] Platelet mean volume (Bld) [Entitic vol] 11.0 fL Normal 6.2-12.0 [facility] Comment on above: Performed By: #### L 500.4050, L501.2450, L503.6005, L100.0100 ####[facility] [address] [place], [address] Platelets (Bld) [#/Vol] 227 10*3/uL Normal 150-450 [facility] Comment on above: Performed By: #### L 500.4050, L501.2450, L503.6005, L100.0100 ####[facility] [address] [place], [address] RDW SD 53.2 fl High 35.1-43.9 [facility] Comment on above: Performed By: #### L 500.4050, L501.2450, L503.6005, L100.0100 ####[facility] [address] [place], [address] Hematocrit (Bld) [Volume fraction] 42.3 % Normal 37-47 [facility] Comment on above: Performed By: #### L 500.4050, L501.2450, L503.6005, L100.0100 ####[facility] [address] [place], [address] Hemoglobin (Bld) [Mass/Vol] 13.9 g/dL Normal 12.0-15.0 [facility] Comment on above: Performed By: #### L 500.4050, L501.2450, L503.6005, L100.0100 ####[facility] [address] [place], [address] MCH (RBC) [Entitic mass] 30.7 pg Normal 27.0-32.0 [facility] Comment on above: Performed By: #### L 500.4050, L501.2450, L503.6005, L100.0100 ####[facility] [address] [place], [address] MCHC (RBC) [Mass/Vol] 32.9 g/dL Normal 32-36 [facility] Comment on above: Performed By: #### L 500.4050, L501.2450, L503.6005, L100.0100 ####[facility] [address] [place], [address] MCV (RBC) [Entitic vol] 93.4 fL Normal 81-99 [facility] Comment on above: Performed By: #### L 500.4050, L501.2450, L503.6005, L100.0100 ####[facility] [address] [place], [address] RBC (Bld) [#/Vol] 4.53 10*6/uL Normal 4.2-5.4 [facility] Comment on above: Performed By: #### L 500.4050, L501.2450, L503.6005, L100.0100 ####[facility] [address] [place], [address] WBC (Bld) [#/Vol] 10.9 10*3/uL Normal 4.4-11.0 [facility] Comment on above: Performed By: #### L 500.4050, L501.2450, L503.6005, L100.0100 ####[facility] [address] [place], [address] Carbon dioxide, total [Moles /volume] in Central venous bloodOrdered By: Carlos Nair on 11-25-2024 CO2 [Moles/Vol] 22.7 mmol/L 21.0-32.0 [facility] Chloride assayOrdered By: Brandy Nair on 11-25-2024 Chloride [Moles/Vol] 103 mmol/L 98-108 [facility] Comprehensive Metabolic Prof ilon 11-25-2024 Albumin [Mass/Vol] 4.3 g/dL Normal 3.5-5.0 [facility] Comment on above: Performed By: #### L 500.4050, L501.2450, L503.6005, L100.0100 ####[facility] [address] [place], [address] Albumin/Globulin [Mass ratio] 1.3 {ratio} Normal 0.9-2.4 [facility] Comment on above: Performed By: #### L 500.4050, L501.2450, L503.6005, L100.0100 ####[facility] [address] [place], [address] ALK PHOS 134 U/L High 35-104 [facility] Comment on above: Performed By: #### L 500.4050, L501.2450, L503.6005, L100.0100 ####[facility] [address] [place], [address] ALT [Catalytic activity/Vol] 19 U/L Normal <=34 [facility] Comment on above: Performed By: #### L 500.4050, L501.2450, L503.6005, L100.0100 ####[facility] [address] [place], [address] AST [Catalytic activity/Vol] 22 U/L Normal <=31 [facility] Comment on above: Performed By: #### L 500.4050, L501.2450, L503.6005, L100.0100 ####[facility] [address] [place], [address] Bilirubin [Mass/Vol] 0.81 mg/dL Normal 0.00-1.30 [facility] Comment on above: Performed By: #### L 500.4050, L501.2450, L503.6005, L100.0100 ####[facility] [address] [place], [address] BUN/CRE 7.1 RATIO Low 10-20 [facility] Comment on above: Performed By: #### L 500.4050, L501.2450, L503.6005, L100.0100 ####[facility] [address] [place], [address] Calcium [Mass/Vol] 9.6 mg/dL Normal 7.6-11.0 [facility] Comment on above: Performed By: #### L 500.4050, L501.2450, L503.6005, L100.0100 ####[facility] [address] [place], [address] Chloride [Moles/Vol] 103 mmol/L Normal 98-108 [facility] Comment on above: Performed By: #### L 500.4050, L501.2450, L503.6005, L100.0100 ####[facility] [address] [place], [address] CO2 [Moles/Vol] 22.7 mmol/L Normal 21.0-32.0 [facility] Comment on above: Performed By: #### L 500.4050, L501.2450, L503.6005, L100.0100 ####[facility] [address] [place], [address] Creatinine [Mass/Vol] 0.76 mg/dL Normal 0.70-1.20 [facility] Comment on above: Performed By: #### L 500.4050, L501.2450, L503.6005, L100.0100 ####[facility] [address] [place], [address] ECRCL 80.72 ml/min Normal 50-250 [facility] Comment on above: Performed By: #### L 500.4050, L501.2450, L503.6005, L100.0100 ####[facility] [address] [place], [address] GAP 11 Normal 5-15 [facility] Comment on above: Performed By: #### L 500.4050, L501.2450, L503.6005, L100.0100 ####[facility] [address] [place], [address] GFR/1.73 sq M.predicted among non-blacks MDRD (S/P/Bld) [Vol rate/Area] 98 mL/min/{1.73_m2} Normal >60 [facility] Comment on above: Result Comment: mL/m in/1.73m2 CKD-EPI Creatinine Equation (2020) Performed By: #### L 500.4050, L501.2450, L503.6005, L100.0100 ####[facility] [address] [place], [address] Globulin (S) [Mass/Vol] 3.4 g/dL Normal 2.2-4.2 [facility] Comment on above: Performed By: #### L 500.4050, L501.2450, L503.6005, L100.0100 ####[facility] [address] [place], [address] Glucose [Mass/Vol] 98 mg/dL Normal 70-99 [facility] Comment on above: Performed By: #### L 500.4050, L501.2450, L503.6005, L100.0100 ####[facility] [address] [place], [address] Potassium [Moles/Vol] 3.8 mmol/L Normal 3.3-5.1 [facility] Comment on above: Performed By: #### L 500.4050, L501.2450, L503.6005, L100.0100 ####[facility] [address] [place], [address] Sodium [Moles/Vol] 137 mmol/L Normal 133-145 [facility] Comment on above: Performed By: #### L 500.4050, L501.2450, L503.6005, L100.0100 ####[facility] [address] [place], [address] T PROT 7.7 g/dL Normal 5.9-8.4 [facility] Comment on above: Performed By: #### L 500.4050, L501.2450, L503.6005, L100.0100 ####[facility] [address] [place], [address] Urea nitrogen [Mass/Vol] 5 mg/dL Normal 4-19 [facility] Comment on above: Performed By: #### L 500.4050, L501.2450, L503.6005, L100.0100 ####[facility] [address] [place], [address] Emergency Department Summary on 11-25-2024 Emergency Department Summary Normal [facility] Eosinophil %Ordered By: Andrae Nair on 11-25-2024 Eosinophils/100 WBC (Bld) 1.3 % 0-5 [facility] Erythrocyte distribution wid th ratioOrdered By: Carlos Nair on 11-25-2024 Erythrocyte distribution width (RBC) [Ratio] 15.4 % High 11.6-14.6 [facility] Glomerular filtration rate ( GFR) estimation/1.73 sq m using serum, plasma, or whole bOrdered By: Carlos Nair on 11-25-2024 GFR/1.73 sq M.predicted among non-blacks MDRD (S/P/Bld) [Vol rate/Area] 98 mL/min/{1.73_m2} >60 [facility] Hematocrit Auto (Bld) [Volum e fraction]Ordered By: Carlos Nair on 11-25-2024 Hematocrit (Bld) [Volume fraction] 42.3 % 37-47 [facility] Hemoglobin measurementOrdere d By: Carlos Nair on 11-25-2024 Hemoglobin (Bld) [Mass/Vol] 13.9 g/dL 12.0-15.0 [facility] Immature granulocyte percent ageOrdered By: Carlos Nair on 11-25-2024 Immature granulocytes/100 WBC (Bld) 0.300 % 0.0-0.9 [facility] Ketones Test strip Ql (U)Ord ered By: Carlos Nair on 11-25-2024 Ketones Ql (U) Negative Negative [facility] Lactic Acidon 11-25-2024 Lactate [Moles/Vol] 1.3 mmol/L Normal 0.0-2.0 [facility] Comment on above: Order Comment: Y Performed By: #### L 500.4050, L501.2450, L503.6005, L100.0100 ####[facility] [address] [place], [address] Lipaseon 11-25-2024 Lipase [Catalytic activity/Vol] 14 U/L Normal 13-75 [facility] Comment on above: Result Comment: Liam rader note:LIPASE revised reference range effective 22.New Lipase methodology. Expected to produce lower valuesthan the previous assay method.NEW Reference Range: 13 - 75 U/L Performed By: #### L 500.4050, L501.2450, L503.6005, L100.0100 ####[facility] [address] [place], [address] Lymphocyte %Ordered By: Andrae Nair on 11-25-2024 Lymphocytes/100 WBC (Bld) 6.8 % Low 19-41 [facility] MCV (mean corpuscular volume ) determinationOrdered By: Carlos Nair on 11-25-2024 MCV (RBC) [Entitic vol] 93.4 fL 81-99 [facility] Mean corpuscular hemoglobin (MCH) determinationOrdered By: Carlos Nair on 11-25-2024 MCH (RBC) [Entitic mass] 30.7 pg 27.0-32.0 [facility] Monocyte percentageOrdered B y: Carlos Nair on 11-25-2024 Monocytes/100 WBC (Bld) 6.4 % 0-10 [facility] Mucus LM Ql (Urine sed)Order ed By: Carlos Nair on 11-25-2024 Mucus Ql (Urine sed) 0 SEEN /hpf [facility] Neutrophil %Ordered By: Andrae Nair on 11-25-2024 Neutrophils/100 WBC (Bld) 84.7 % High 47-70 [facility] Nitrite Test strip Ql (U)Ord ered By: Carlos Nair on 11-25-2024 Nitrite Ql (U) Negative Negative [facility] No Panel InformationOrdered By: Carlos Nair on 11-25-2024 22 U/L <32 [facility] Potassium measurement (mass/ volume)Ordered By: Carlos Nair on 11-25-2024 Potassium (Unsp spec) [Mass/Vol] 3.8 mmol/L 3.3-5.1 [facility] ,Urineon 11-25-2024 Beta HCG ( test) Ql (U) Negative Normal [facility] Comment on above: Result Comment: Very dilute urine specimens, as indicated by a low specificgravity, may not contain goodwill representative levels of hCG.If is still suspected, a first morning urinespecimen should be collected 48 hours later and tested. Performed By: #### L 400.7600, L400.0001 ####[facility] [address] [place], [address] Protein Test strip Ql (U)Ord ered By: Carlos Nair on 11-25-2024 Protein Ql (U) 30 mg/dl High Negative [facility] RBC Auto (Bld) [#/Vol]Ordere d By: Carlos Nair on 11-25-2024 RBC (Bld) [#/Vol] 4.53 10*6/uL 4.2-5.4 [facility] RDWOrdered By: Carlos Nair on 11-25-2024 RDW 53.2 fl High 35.1-43.9 [facility] Serum creatinine measurement (mass/volume)Ordered By: Carlos Nair on 11-25-2024 Creatinine [Mass/Vol] 0.76 mg/dL 0.70-1.20 [facility] Serum globulin measurementOr dered By: Carlos Nair on 11-25-2024 Globulin (S) [Mass/Vol] 3.4 g/dL 2.2-4.2 [facility] Serum glucose measurement (m ass/volume)Ordered By: Carlos Nair on 11-25-2024 Glucose [Mass/Vol] 98 mg/dL 70-99 [facility] Serum or plasma alanine hair otransferase (ALT) measurementOrdered By: Carlos Nair on 11-25-2024 ALT [Catalytic activity/Vol] 19 U/L <35 [facility] Serum or plasma albumin leslie urement (mass/volume)Ordered By: Carlos Nair on 11-25-2024 Albumin [Mass/Vol] 4.3 g/dL 3.5-5.0 [facility] Serum or plasma albumin/glob ulin mass ratioOrdered By: Carlos Nair on 11-25-2024 Albumin/Globulin [Mass ratio] 1.3 {ratio} 0.9-2.4 [facility] Serum or plasma alkaline delfin sphatase measurementOrdered By: Carlos Nair on 11-25-2024 ALP [Catalytic activity/Vol] 134 U/L High 35-104 [facility] Serum or plasma calcium leslie urement (mass/volume)Ordered By: Carlos Nair on 11-25-2024 Calcium [Mass/Vol] 9.6 mg/dL 7.6-11.0 [facility] Serum or plasma urea nitroge n measurement (mass/volume)Ordered By: Carlos Nair on 11-25-2024 Urea nitrogen [Mass/Vol] 5 mg/dL 4-19 [facility] Sodium levelOrdered By: Andrae Nair on 11-25-2024 Sodium [Moles/Vol] 137 mmol/L 133-145 [facility] Squamous epithelial cells de tection in urine sediment by light microscopyOrdered By: Carlos Nair on 11-25-2024 Epithelial cells.squamous LM Ql (Urine sed) 0-5 SEEN /hpf 5-10 [facility] Total proteinOrdered By: Jacinto Nair on 11-25-2024 Protein [Mass/Vol] 7.7 g/dL 5.9-8.4 [facility] Urinalysis, Completeon 11-25 EPI,SQUAMOUS 0-5 SEEN Normal 5-10 [facility] Comment on above: Order Comment: CLEAN CATCH Performed By: #### L 400.7600, L400.0001 ####[facility] [address] [place], [address] RBC 5-10 SEEN Normal 0-5 [facility] Comment on above: Order Comment: CLEAN CATCH Performed By: #### L 400.7600, L400.0001 ####[facility] [address] [place], [address] WBC 0-5 SEEN Normal 0-5 [facility] Comment on above: Order Comment: CLEAN CATCH Performed By: #### L 400.7600, L400.0001 ####[facility] [address] [place], [address] BACTERIA 0 SEEN Normal None Seen [facility] Comment on above: Order Comment: CLEAN CATCH Performed By: #### L 400.7600, L400.0001 ####[facility] [address] [place], [address] Mucus Ql (Urine sed) 0 SEEN Normal [facility] Comment on above: Order Comment: CLEAN CATCH Performed By: #### L 400.7600, L400.0001 ####[facility] [address] [place], [address] Urine clarityOrdered By: Jacinto Nair on 11-25-2024 Clarity (U) Clear Clear [facility] Urine color determinationOrd ered By: Carlos Nair on 11-25-2024 Color (U) Yellow Yellow [facility] Urine glucose detectionOrder ed By: Carlos Nair on 11-25-2024 Glucose Ql (U) Normal mg/dl Normal [facility] Urine leukocyte esterase det ection by dipstickOrdered By: Carlos Nair on 11-25-2024 Leukocyte esterase Test strip Ql (U) Negative Negative [facility] Urine pHOrdered By: Carlos mandel on 11-25-2024 pH (U) 7.0 [pH] 5.0 - 8.0 [facility] Urine testOrdered By: Carlos Nair on 11-25-2024 HCG ( test) Ql (U) Negative [facility] Urine sediment bacteria coun t by microscopy (number/high power field)Ordered By: Carlos Nair on 11-25-2024 Bacteria LM.HPF (Urine sed) [#/Area] 0 /[HPF] None Seen [facility] Urine specific gravity measu rementOrdered By: Carlos Nair on 11-25-2024 Specific gravity (U) [Rel density] 1.005 1.002-1.03 0 [facility] Urine urobilinogen measureme ntOrdered By: Carlos Nair on 11-25-2024 Urobilinogen Ql (U) Normal mg/dl Normal [facility] White blood cell (WBC) count Ordered By: Carlos Nair on 11-25-2024 WBC (Bld) [#/Vol] 10.9 10*3/uL 4.4-11.0 [facility] White blood cell countOrdere d By: Carlos Nair on 11-25-2024 White blood cell count 0-5 SEEN /hpf 0-5 [facility] 12 Lead EKGon 11-23-2024 12 Lead EKG Normal [facility] ERCP Biliary/Pancreason 11-12 ERCP Biliary/Pancreas Normal [facility] ERCP Reporton 11-23-2024 ERCP Report Normal [facility] MR/OP.PROVATon 11-23-2024 MR/OP.PROVAT Normal [facility] MR/POSTOP.ANEon 11-23-2024 MR/POSTOP.ANE Normal [facility] MR/JNHEQHKG0ij 11-23-2024 MR/POSTOPAN2 Normal [facility] Special Stain Group IIon Special Stain Group II Normal [facility] Comment on above: Performed By: #### P SSII ####[facility] [address] [place], [place], [address] MR/PAT.ANEon 10-24-2024 MR/PAT.ANE Normal [facility] Cardiology Visit Reporton Cardiology Visit Report Normal [facility] Pacemaker Checkon 10-03-2024 Pacemaker Check Normal [facility] Basic metabolic 2000 panelon 09-23-2024 Anion gap [Moles/Vol] 12 mmol/L 10 - 2 0 mmol/L [facility] Calcium [Mass/Vol] 9.9 mg/dL 8.6 - 10. 3 mg/dL [facility] Chloride [Moles/Vol] 94 mmol/L Low 98 - 10 7 mmol/L [facility] CO2 [Moles/Vol] 32 mmol/L 21 - 32 mmol/L [facility] Creatinine [Mass/Vol] 0.92 mg/dL 0.50 - 1.05 mg/dL [facility] GFR/1.73 sq M.predicted among non-blacks MDRD (S/P/Bld) [Vol rate/Area] 78 mL/min/{1.73_m2} - PINF [facility] Comment on above: Calculations of vidal mated GFR are performed using the 2020 CKD-EPI Study Refit equation without the race variable for the IDMS-Traceable creatinine methods. https://jasn.asnjournals.org/content//ASN.060 9958965 Glucose [Mass/Vol] 89 mg/dL 74 - 99 mg/dL [facility] Interpretation and review of laboratory results Abnormal [facility] Potassium [Moles/Vol] 3.8 mmol/L 3.5 - 5.3 mmol/L [facility] Sodium [Moles/Vol] 134 mmol/L Low 136 - 145 mmol/L [facility] Urea nitrogen [Mass/Vol] 30 mg/dL High 6 - 23 mg/dL [facility] Anion gap [Moles/Vol] 12 mmol/L Normal 10-20 [facility] Comment on above: Performed By: #### 5 8077-9 #### JENNIFER ALBARRAN ([id number]) [facility]) [facility] [place] [address] Calcium [Mass/Vol] 9.9 mg/dL Normal 8.6-10.3 [facility] Comment on above: Performed By: #### 5 8077-9 #### JENNIFER ALBARRAN ([id number]) [facility]) [address] [place] [address] Chloride [Moles/Vol] 94 mmol/L Low 98-107 [facility] Comment on above: Performed By: #### 5 8077-9 #### JENNIFER ALBARRAN ([id number]) [facility]) [address] [place] [address] CO2 [Moles/Vol] 32 mmol/L Normal 21-32 [facility] Comment on above: Performed By: #### 5 8077-9 #### JENNIFER ALBARRAN ([id number]) [facility]) [address] [place] [address] Creatinine [Mass/Vol] 0.92 mg/dL Normal 0.50-1.05 [facility] Comment on above: Performed By: #### 5 8077-9 #### JENNIFER ALBARRAN ([id number]) [facility]) [address] [place] [address] Glomerular filtration rate/1.73 sq M.predicted 78 mL/min/1.73m*2 Normal >60 [facility] Comment on above: Result Comment: Calc ulations of estimated GFR are performed using the 2020 CKD-EPI Study Refit equation without the race variable for the IDMS-Traceable creatinine methods. https://jasn.asnjournals.org/content/early//ASN.879 1410014 Performed By: #### 5 8077-9 #### JENNIFER ALBARRAN ([id number]) [facility]) [address] [place] [address] Glucose [Mass/Vol] 89 mg/dL Normal 74-99 [facility] Comment on above: Performed By: #### 5 8077-9 #### JENNIFER ALBARRAN ([id number]) [facility]) [address] [place] [address] Potassium [Moles/Vol] 3.8 mmol/L Normal 3.5-5.3 [facility] Comment on above: Performed By: #### 5 8077-9 #### JENNIFER ALBARRAN ([id number]) [facility]) [address] [place] [address] Sodium [Moles/Vol] 134 mmol/L Low 136-145 [facility] Comment on above: Performed By: #### 5 8077-9 #### JENNIFER ALBARRAN ([id number]) [facility]) [address] [place] [address] Urea nitrogen [Mass/Vol] 30 mg/dL High 6-23 [facility] Comment on above: Performed By: #### 5 8077-9 #### JENNIFER ALBARRAN ([id number]) [facility]) [address] [place] [address] CBC panel Auto (Bld)on 09-23 Erythrocyte distribution width (RBC) [Ratio] 14.4 % 11.5 - 14.5 % [facility] Hematocrit (Bld) [Volume fraction] 49.8 % High 36.0 - 46.0 % [facility] Hemoglobin (Bld) [Mass/Vol] 16.6 g/dL High 12.0 - 16.0 g/dL [facility] Interpretation and review of laboratory results Abnormal [facility] MCH (RBC) [Entitic mass] 30.2 pg 26. 0 - 34.0 pg [facility] MCHC (RBC) [Mass/Vol] 33.3 g/dL 32.0 - 36.0 g/dL [facility] MCV (RBC) [Entitic vol] 91 fL 80 - 100 fL [facility] Nucleated RBC/100 WBC (Bld) [Ratio] 0 % [facility] Platelets (Bld) [#/Vol] 326 10*3/uL [facility] RBC (Bld) [#/Vol] 5.5 10*6/uL [facility] WBC (Bld) [#/Vol] 13.9 10*3/uL [facility] Erythrocyte distribution width (RBC) [Ratio] 14.4 % Normal 11.5-14.5 [facility] Comment on above: Performed By: #### 5 8077-9 #### JENNIFER ALBARRAN ([id number]) [facility]) [address] [place] [address] Hematocrit (Bld) [Volume fraction] 49.8 % High 36.0-46.0 [facility] Comment on above: Performed By: #### 5 8077-9 #### JENNIFER ALBARRAN ([id number]) [facility]) [address] [place] [address] Hemoglobin (Bld) [Mass/Vol] 16.6 g/dL High 12.0-16.0 [facility] Comment on above: Performed By: #### 5 8077-9 #### JENNIFER ALBARRAN ([id number]) [facility]) [address] [place] [address] MCH (RBC) [Entitic mass] 30.2 pg Normal 26.0-34.0 [facility] Comment on above: Performed By: #### 5 8077-9 #### JENNIFER ALBARRAN ([id number]) [facility]) [address] [place] [address] MCHC (RBC) [Mass/Vol] 33.3 g/dL Normal 32.0-36.0 [facility] Comment on above: Performed By: #### 5 8077-9 #### JENNIFER ALBARRAN ([id number]) [facility]) [address] [place] [address] MCV (RBC) [Entitic vol] 91 fL Normal 80-100 [facility] Comment on above: Performed By: #### 5 8077-9 #### JENNIFER ALBARRAN ([id number]) [facility]) [address] [place] [address]9812 Nucleated RBC/100 WBC (Bld) [Ratio] 0.0 /100 WBCs Normal 0.0-0.0 [facility] Comment on above: Performed By: #### 5 8077-9 #### JENNIFER ALBARRAN ([id number]) [facility]) [address] [place] [address]2827 Platelets (Bld) [#/Vol] 326 x10*3/uL Normal 150-450 [facility] Comment on above: Performed By: #### 5 8077-9 #### JENNIFER ALBARRAN ([id number]) [facility]) [address] [place] [address] RBC (Bld) [#/Vol] 5.50 x10*6/uL High 4.00-5.20 [facility] Comment on above: Performed By: #### 5 8077-9 #### JENNIFER ALBARRAN ([id number]) [facility]) [address] [place] [address]236 WBC (Bld) [#/Vol] 13.9 x10*3/uL High 4.4-11.3 [facility] Comment on above: Performed By: #### 5 8077-9 #### JENNIFER ALBARRAN ([id number]) [facility]) [address] [place] [address] ProcalcitoninOrdered By: Yancy Olivera on 09-23-2024 Procalcitonin [Mass/Vol] 0.04 ng/mL ARAVIND F - 0.07 ng/mL [facility] Procalcitoninon 09-23-2024 Procalcitonin [Mass/Vol] 0.04 ng/mL Normal <=0.07 [facility] Comment on above: Order Comment: Proca lcitonin [...] By: #### 5 8077-9 #### RODRIGUEZ AVIS ([id number]) [facility]) [address] [place] [address] Procalcitonin [Mass/Vol]Orde red By: Mariangel Olivera on 09-23-2024 Interpretation and review of laboratory results Normal [facility] Procalcitonin (PCT) results measured serially can [...] on immunomodulatory medications has not been evaluated. [facility] Basic metabolic 2000 panelon 09-22-2024 Anion gap [Moles/Vol] 13 mmol/L 10 - 2 0 mmol/L [facility] Calcium [Mass/Vol] 10.4 mg/dL High 8.6 - 10. 3 mg/dL [facility] Chloride [Moles/Vol] 96 mmol/L Low 98 - 10 7 mmol/L [facility] CO2 [Moles/Vol] 31 mmol/L 21 - 32 mmol/L [facility] Creatinine [Mass/Vol] 0.95 mg/dL 0.50 - 1.05 mg/dL [facility] GFR/1.73 sq M.predicted among non-blacks MDRD (S/P/Bld) [Vol rate/Area] 75 mL/min/{1.73_m2} - PINF [facility] Comment on above: Calculations of vidal mated GFR are performed using the 2020 CKD-EPI Study Refit equation without the race variable for the IDMS-Traceable creatinine methods. https://jasn.asnjournals.org/content//ASN.962 6391244 Glucose [Mass/Vol] 84 mg/dL 74 - 99 mg/dL [facility] Interpretation and review of laboratory results Abnormal [facility] Potassium [Moles/Vol] 3.6 mmol/L 3.5 - 5.3 mmol/L [facility] Sodium [Moles/Vol] 136 mmol/L 136 - 145 mmol/L [facility] Urea nitrogen [Mass/Vol] 25 mg/dL High 6 - 23 mg/dL [facility] Anion gap [Moles/Vol] 13 mmol/L Normal 10-20 [facility] Comment on above: Performed By: #### 5 8077-9 #### RODRIGUEZ AVIS ([id number]) [facility]) [address] [place] [address] Calcium [Mass/Vol] 10.4 mg/dL High 8.6-10.3 [facility] Comment on above: Performed By: #### 5 8077-9 #### JENNIFER ALBARRAN ([id number]) [facility]) [facility] [place] [address] Chloride [Moles/Vol] 96 mmol/L Low 98-107 [facility] Comment on above: Performed By: #### 5 8077-9 #### JENNIFER ALBARRAN ([id number]) [facility]) [address] [place] [address] CO2 [Moles/Vol] 31 mmol/L Normal 21-32 [facility] Comment on above: Performed By: #### 5 8077-9 #### JENNIFER ALBARRAN ([id number]) [facility]) [address] [place] [address] Creatinine [Mass/Vol] 0.95 mg/dL Normal 0.50-1.05 [facility] Comment on above: Performed By: #### 5 8077-9 #### JENNIFER ALBARRAN ([id number]) [facility]) [address] [place] [address] Glomerular filtration rate/1.73 sq M.predicted 75 mL/min/1.73m*2 Normal >60 [facility] Comment on above: Result Comment: Calc ulations of estimated GFR are performed using the 2020 CKD-EPI Study Refit equation without the race variable for the IDMS-Traceable creatinine methods. https://jasn.asnjournals.org/content/early//ASN.352 2906504 Performed By: #### 5 8077-9 #### JENNIFER ALBARRAN ([id number]) [facility] ([facility]) [address] [place] [address] Glucose [Mass/Vol] 84 mg/dL Normal 74-99 [facility] Comment on above: Performed By: #### 5 8077-9 #### JENNIFER ALBARRAN ([id number]) [facility]) [address] [place] [address] 83464 Potassium [Moles/Vol] 3.6 mmol/L Normal 3.5-5.3 [facility] Comment on above: Performed By: #### 5 8077-9 #### JENNIFER ALBARRAN ([id number]) [facility]) [address] [place] [address] Sodium [Moles/Vol] 136 mmol/L Normal 136-145 [facility] Comment on above: Performed By: #### 5 8077-9 #### JENNIFER ALBARRAN ([id number]) [facility] ([facility]) [address] [place] [address] Urea nitrogen [Mass/Vol] 25 mg/dL High 6-23 [facility] Comment on above: Performed By: #### 5 8077-9 #### JENNIFER ALBARRAN ([id number]) [facility] ([facility]) [address] [place] [address] CBC panel Auto (Bld)on 09-22 Erythrocyte distribution width (RBC) [Ratio] 14.6 % High 11.5 - 14.5 % [facility] Hematocrit (Bld) [Volume fraction] 46.4 % High 36.0 - 46.0 % [facility] Hemoglobin (Bld) [Mass/Vol] 15.1 g/dL 12.0 - 16.0 g/dL [facility] Interpretation and review of laboratory results Abnormal [facility] MCH (RBC) [Entitic mass] 30.5 pg 26. 0 - 34.0 pg [facility] MCHC (RBC) [Mass/Vol] 32.5 g/dL 32.0 - 36.0 g/dL [facility] MCV (RBC) [Entitic vol] 94 fL 80 - 100 fL [facility] Nucleated RBC/100 WBC (Bld) [Ratio] 0 % [facility] Platelets (Bld) [#/Vol] 319 10*3/uL [facility] RBC (Bld) [#/Vol] 4.95 10*6/uL [facility] WBC (Bld) [#/Vol] 12.8 10*3/uL [facility] Erythrocyte distribution width (RBC) [Ratio] 14.6 % High 11.5-14.5 [facility] Comment on above: Performed By: #### 5 8077-9 #### JENNIFER ALBARRAN ([id number]) [facility] ([facility]) [address] [place] [address] Hematocrit (Bld) [Volume fraction] 46.4 % High 36.0-46.0 [facility] Comment on above: Performed By: #### 5 8077-9 #### JENNIFER ALBARRAN ([id number]) [facility] ([facility]) [address] [place] [address] Hemoglobin (Bld) [Mass/Vol] 15.1 g/dL Normal 12.0-16.0 [facility] Comment on above: Performed By: #### 5 8077-9 #### JENNIFER ALBARRAN ([id number]) [facility] ([facility]) [address] [place] [address] 24222 MCH (RBC) [Entitic mass] 30.5 pg Normal 26.0-34.0 [facility] Comment on above: Performed By: #### 5 8077-9 #### JENNIFER ALBARRAN ([id number]) [facility] ([facility]) [address] [place] [address] MCHC (RBC) [Mass/Vol] 32.5 g/dL Normal 32.0-36.0 [facility] Comment on above: Performed By: #### 5 8077-9 #### JENNIFER ALBARRAN ([id number]) [facility] ([facility]) [address] [place] [address] 17254 MCV (RBC) [Entitic vol] 94 fL Normal 80-100 [facility] Comment on above: Performed By: #### 5 8077-9 #### JENNIFER ALBARRAN ([id number]) [facility] ([facility]) [address] [place] [address]34[address] Nucleated RBC/100 WBC (Bld) [Ratio] 0.0 /100 WBCs Normal 0.0-0.0 [facility] Comment on above: Performed By: #### 5 8077-9 #### JENNIFER ALBARRAN ([id number]) [facility] ([facility]) [address] [place] [address] Platelets (Bld) [#/Vol] 319 x10*3/uL Normal 150-450 [facility] Comment on above: Performed By: #### 5 8077-9 #### JENNIFER ALBARRAN ([id number]) [facility] ([facility]) [address] [place] [address] RBC (Bld) [#/Vol] 4.95 x10*6/uL Normal 4.00-5.20 [facility] Comment on above: Performed By: #### 5 8077-9 #### JENNIFER ALBARRAN ([id number]) [facility] ([facility]) [address] [place] [address] WBC (Bld) [#/Vol] 12.8 x10*3/uL High 4.4-11.3 [facility] Comment on above: Performed By: #### 5 8077-9 #### JENNIFER ALBARRAN ([id number]) [facility] ([facility]) [address] [place] [address] CT ABDOMEN PELVIS WO IV CONT [facility] 09-22-2024 CT ABDOMEN PELVIS WO IV CONTRAST Interpreted By: Giacomo Soriano, STUDY: CT ABDOMEN PELVIS WO IV CONTRAST; 09/22/2024 11:47 am INDICATION: Signs/Symptoms:rt flank pain ro kidney stones hematuria. COMPARISON: 09/21/2024 ACCESSION NUMBER(S): [id number] ORDERING CLINICIAN: RISHABH EL TECHNIQUE: CT of [...] Giacomo Soriano 09/22/2024 1:15 PM Dictation workstation: [id number] [facility] CT Abdomen WO contraston Small area of consolidation in the left lower lobe raising suspicion for pneumonia. Moderate colonic stool burden, correlate for constipation. Sigmoid colonic diverticulosis. Signed by: Giacomo Soriano 09/22/2024 1:15 PM Dictation workstation: [id number] Interpreted By: Giacomo Soriano, STUDY: CT ABDOMEN PELVIS WO IV CONTRAST; 09/22/2024 11:47 am INDICATION: Signs/Symptoms:rt flank pain ro kidney stones hematuria. COMPARISON: 09/21/2024 ACCESSION NUMBER(S): [id number] ORDERING CLINICIAN: RISHABH LE TECHNIQUE: CT of the abdomen and pelvis [...] kidney stones hematuria. COMPARISON: 09/21/2024 ACCESSION NUMBER(S): [id number] ORDERING CLINICIAN: RISHABH EL TECHNIQUE: CT of [...] Giacomo Soriano 09/22/2024 1:15 PM Dictation workstation: [id number] [facility] Work Phone: Radiology Study observation (narrative) [facility] Work Phone: CT Abdomen WO contrastOrdere d By: Dawsonwisamlorna Soriano on 09-22-2024 [facility] Work Phone: Lactateon 09-22-2024 Lactate [Moles/Vol] 1.2 mmol/L 0.4 - 2. 0 mmol/L [facility] Lactate [Moles/Vol] 1.2 mmol/L Normal 0.4-2.0 [facility] Comment on above: Order Comment: Venip uncture immediately after or during the administration of Metamizole may lead to falsely low results. Testing should be performed immediately prior to Metamizole dosing. Performed By: #### 5 8077-9 #### RODRIGUEZ AVIS ([id number]) [facility] ([facility]) [address] [place] [address]81 Lactate [Moles/Vol]on 2024 Interpretation and review of laboratory results Normal [facility] Venipuncture immedia tely after or during the administration of Metamizole may lead to falsely low results. Testing should be performed immediately prior to Metamizole dosing. [facility] CBC W Auto Differential pane l (Bld)on 09-21-2024 Basophils (Bld) [#/Vol] 0.01 10*3/uL [facility] Basophils/100 WBC (Bld) 0.1 % 0.0 - 2.0 % [facility] Eosinophils (Bld) [#/Vol] 0.01 10*3/uL [facility] Eosinophils/100 WBC (Bld) 0.1 % 0.0 - 6.0 % [facility] Erythrocyte distribution width (RBC) [Ratio] 14.9 % High 11.5 - 14.5 % [facility] Hematocrit (Bld) [Volume fraction] 40.7 % 36.0 - 46.0 % [facility] Hemoglobin (Bld) [Mass/Vol] 13.1 g/dL 12.0 - 16.0 g/dL [facility] Immature granulocytes (Bld) [#/Vol] 0.09 10*3/uL [facility] Immature granulocytes/100 WBC (Bld) 0.6 % 0.0 - 0.9 % [facility] Comment on above: Immature Granulocyte Count (IG) includes promyelocytes, myelocytes and metamyelocytes but does not include bands. Percent differential counts (%) should be interpreted in the context of the absolute cell counts (cells/UL). Interpretation and review of laboratory results Abnormal [facility] Lymphocytes (Bld) [#/Vol] 0.65 10*3/uL Low [facility] Lymphocytes/100 WBC (Bld) 4.2 % 13.0 - 44.0 % [facility] MCH (RBC) [Entitic mass] 30.3 pg 26. 0 - 34.0 pg [facility] MCHC (RBC) [Mass/Vol] 32.2 g/dL 32.0 - 36.0 g/dL [facility] MCV (RBC) [Entitic vol] 94 fL 80 - 100 fL [facility] Monocytes (Bld) [#/Vol] 0.37 10*3/uL [facility] Monocytes/100 WBC (Bld) 2.4 % 2.0 - 10.0 % [facility] Neutrophils (Bld) [#/Vol] 14.39 10*3/uL High [facility] Comment on above: Percent differential counts (%) should be interpreted in the context of the absolute cell counts (cells/uL). Neutrophils/100 WBC (Bld) 92.6 % 40.0 - 80.0 % [facility] Nucleated RBC/100 WBC (Bld) [Ratio] 0 % [facility] Platelets (Bld) [#/Vol] 276 10*3/uL [facility] RBC (Bld) [#/Vol] 4.32 10*6/uL [facility] WBC (Bld) [#/Vol] 15.5 10*3/uL High [facility] Basophils (Bld) [#/Vol] 0.01 x10*3/uL Normal 0.00-0.10 [facility] Comment on above: Performed By: #### 5 7021-8 #### RODRIGUEZ AVIS ([id number]) [facility] ([facility]) [address] [place] [address] 47268 Basophils/100 WBC (Bld) 0.1 % Normal 0.0-2.0 [facility] Comment on above: Performed By: #### 5 7021-8 #### JENNIFER ALBARRAN ([id number]) [facility] ([facility]) [address] [place] [address] 64189 Eosinophils (Bld) [#/Vol] 0.01 x10*3/uL Normal 0.00-0.70 [facility] Comment on above: Performed By: #### 5 7021-8 #### JENNIFER ALBARRAN ([id number]) [facility] ([facility]) [address] [place] [address] 30156 Eosinophils/100 WBC (Bld) 0.1 % Normal 0.0-6.0 [facility] Comment on above: Performed By: #### 5 7021-8 #### JENNIFER ALBARRAN ([id number]) [facility] ([facility]) [address] [place] [address] 74466 Erythrocyte distribution width (RBC) [Ratio] 14.9 % High 11.5-14.5 [facility] Comment on above: Performed By: #### 5 7021-8 #### JENNIFER ALBARRAN ([id number]) [facility] ([facility]) [address] [place] [address] 25175 Hematocrit (Bld) [Volume fraction] 40.7 % Normal 36.0-46.0 [facility] Comment on above: Performed By: #### 5 7021-8 #### JENNIFER ALBARRAN ([id number]) [facility] ([facility]) [address] [place] [address]40 Hemoglobin (Bld) [Mass/Vol] 13.1 g/dL Normal 12.0-16.0 [facility] Comment on above: Performed By: #### 5 7021-8 #### JENNIFER ALBARRAN ([id number]) [facility] ([facility]) [address] [place] [address] 83522 Immature granulocytes (Bld) [#/Vol] 0.09 x10*3/uL Normal 0.00-0.70 [facility] Comment on above: Performed By: #### 5 7021-8 #### JENNIFER ALBARRAN ([id number]) [facility] ([facility]) [address] [place] [address] 11967 Immature granulocytes/100 WBC (Bld) 0.6 % Normal 0.0-0.9 [facility] Comment on above: Result Comment: Samina ture Granulocyte Count (IG) includes promyelocytes, myelocytes and metamyelocytes but does not include bands. Percent differential counts (%) should be interpreted in the context of the absolute cell counts (cells/UL). Performed By: #### 5 7021-8 #### JENNIFER ALBARRAN ([id number]) [facility] ([facility]) [address] [place] [address] Lymphocytes (Bld) [#/Vol] 0.65 x10*3/uL Low 1.20-4.80 [facility] Comment on above: Performed By: #### 5 7021-8 #### JENNIFER ALBARRAN ([id number]) [facility] ([facility]) [address] [place] [address] 42738 Lymphocytes/100 WBC (Bld) 4.2 % Normal 13.0-44.0 [facility] Comment on above: Performed By: #### 5 7021-8 #### JENNIFER ALBARRAN ([id number]) [facility] ([facility]) [address] [place] [address] MCH (RBC) [Entitic mass] 30.3 pg Normal 26.0-34.0 [facility] Comment on above: Performed By: #### 5 7021-8 #### JENNIFER ALBARRAN ([id number]) [facility] ([facility]) [address] [place] [address] MCHC (RBC) [Mass/Vol] 32.2 g/dL Normal 32.0-36.0 [facility] Comment on above: Performed By: #### 5 7021-8 #### JENNIFER ALBARRAN ([id number]) [facility] ([facility]) [address] [place] [address] MCV (RBC) [Entitic vol] 94 fL Normal 80-100 [facility] Comment on above: Performed By: #### 5 7021-8 #### JENNIFER ALBARRAN ([id number]) [facility] ([facility]) [address] [place] [address] 45997 Monocytes (Bld) [#/Vol] 0.37 x10*3/uL Normal 0.10-1.00 [facility] Comment on above: Performed By: #### 5 7021-8 #### JENNIFER ALBARRAN ([id number]) [facility] ([facility]) [address] [place] [address] 67684 Monocytes/100 WBC (Bld) 2.4 % Normal 2.0-10.0 [facility] Comment on above: Performed By: #### 5 7021-8 #### JENNIFER ALBARRAN ([id number]) [facility] ([facility]) [address] [place] [address] 66640 Neutrophils (Bld) [#/Vol] 14.39 x10*3/uL High 1.20-7.70 [facility] Comment on above: Result Comment: Perc ent differential counts (%) should be interpreted in the context of the absolute cell counts (cells/uL). Performed By: #### 5 7021-8 #### JENNIFER ALBARRAN ([id number]) [facility] ([facility]) [address] [place] [address] 48593 Neutrophils/100 WBC (Bld) 92.6 % Normal 40.0-80.0 [facility] Comment on above: Performed By: #### 5 7021-8 #### JENNIFER ALBARRAN ([id number]) [facility] ([facility]) [address] [place] [address] 93254 Nucleated RBC/100 WBC (Bld) [Ratio] 0.0 /100 WBCs Normal 0.0-0.0 [facility] Comment on above: Performed By: #### 5 7021-8 #### JENNIFER ALBARRAN ([id number]) [facility] ([facility]) [address] [place] [address] 75147 Platelets (Bld) [#/Vol] 276 x10*3/uL Normal 150-450 [facility] Comment on above: Performed By: #### 5 7021-8 #### JENNIFER ALBARRAN ([id number]) [facility] ([facility]) [address] [place] [address] RBC (Bld) [#/Vol] 4.32 x10*6/uL Normal 4.00-5.20 [facility] Comment on above: Performed By: #### 5 7021-8 #### JENNIFER ALBARRAN ([id number]) [facility] ([facility]) [address] [place] [address] WBC (Bld) [#/Vol] 15.5 x10*3/uL High 4.4-11.3 [facility] Comment on above: Performed By: #### 5 7021-8 #### JENNIFER ALBARRAN ([id number]) [facility] ([facility]) [address] [place] [address] CT Abdomen and Pelvis W cont rast mAber 09-21-2024 1. Constellation of the imaging findings [...] Deondre Davila 09/21/2024 1:44 AM Dictation workstation: [id number] Interpreted By: Deondre Davila, STUDY: CT ABDOMEN PELVIS W IV CONTRAST; 09/21/2024 1:33 am INDICATION: Signs/Symptoms:abd pain. COMPARISON: Same day CTA of the chest. ACCESSION NUMBER(S): [id number] ORDERING CLINICIAN: ROCKY EVERETT TECHNIQUE: Contiguous axial [...] day CTA of the chest. ACCESSION NUMBER(S): [id number] ORDERING CLINICIAN: ROCKY EVERETT TECHNIQUE: Contiguous axial [...] Deondre Davila 09/21/2024 1:44 AM Dictation workstation: [id number] [facility] Work Phone: [facility] Work Phone: Radiology Study observation (narrative) [facility] Work Phone: CT Chest W contrast [...] along the fissures in the lower lobes, [id number]-bqfq-left. 3. Mild cardiomegaly with some reflux of contrast into the hepatic veins and IVC, findings that may be seen in the setting of early right heart strain. Correlate with echocardiogram. MACRO: None Signed by: Deondre Davila 09/21/2024 1:38 AM Dictation workstation: [id number] [facility] Interpreted By: Deondre Davila, STUDY: CT ANGIO CHEST FOR PULMONARY EMBOLISM; 09/21/2024 1:31 am INDICATION: Signs/Symptoms:sob - hx of PE - not anticoagulated. COMPARISON: None ACCESSION NUMBER(S): [id number] ORDERING CLINICIAN: ROCKY EVERETT TECHNIQUE: Helical data [...] - not anticoagulated. COMPARISON: None ACCESSION NUMBER(S): [id number] ORDERING CLINICIAN: ROCKY EVERETT TECHNIQUE: Helical data [...] along the fissures in the lower lobes, cpurp-[id number]-[id number]-left. 3. Mild cardiomegaly with some reflux of contrast into the hepatic veins and IVC, findings that may be seen in the setting of early right heart strain. Correlate with echocardiogram. MACRO: None Signed by: Deondre Davila 09/21/2024 1:38 AM Dictation workstation: [id number] [facility] Work Phone: Radiology Study observation (narrative) [facility] Work Phone: CT Chest W contrast IV and C T angiogram Pulmonary arteries for pulmonary embolus W contrast IVOrdered By: Deondre Davila on 09-21-2024 [facility] Work Phone: Comprehensive metabolic 2000 panelon 09-21-2024 Albumin BCP dye [Mass/Vol] 4.2 g/dL 3.4 - 5.0 g/dL [facility] ALP [Catalytic activity/Vol] 105 U/L 33 - 110 U/L [facility] ALT With P-5'-P [Catalytic activity/Vol] 212 U/L High 7 - 45 U/L [facility] Comment on above: Patients treated wit h Sulfasalazine may generate falsely decreased results for ALT. Anion gap [Moles/Vol] 13 mmol/L 10 - 2 0 mmol/L [facility] AST With P-5'-P [Catalytic activity/Vol] 24 U/L 9 - 39 U/L [facility] Bilirubin [Mass/Vol] 1 mg/dL 0.0 - 1 .2 mg/dL [facility] Calcium [Mass/Vol] 9.8 mg/dL 8.6 - 10. 3 mg/dL [facility] Chloride [Moles/Vol] 106 mmol/L 98 - 10 7 mmol/L [facility] CO2 [Moles/Vol] 21 mmol/L 21 - 32 mmol/L [facility] Creatinine [Mass/Vol] 0.82 mg/dL 0.50 - 1.05 mg/dL [facility] GFR/1.73 sq M.predicted among non-blacks MDRD (S/P/Bld) [Vol rate/Area] 90 mL/min/{1.73_m2} - PINF [facility] Comment on above: Calculations of vidal mated GFR are performed using the 2020 CKD-EPI Study Refit equation without the race variable for the IDMS-Traceable creatinine methods. https://jasn.asnjournals.org/content//ASN.433 4031980 Glucose [Mass/Vol] 144 mg/dL High 74 - 99 mg/dL [facility] Potassium [Moles/Vol] 4.1 mmol/L 3.5 - 5.3 mmol/L [facility] Protein [Mass/Vol] 6.5 g/dL 6.4 - 8.2 g/dL [facility] Sodium [Moles/Vol] 136 mmol/L 136 - 145 mmol/L [facility] Urea nitrogen [Mass/Vol] 21 mg/dL 6 - 23 mg/dL [facility] Albumin BCP dye [Mass/Vol] 4.2 g/dL Normal 3.4-5.0 [facility] Comment on above: Performed By: #### 2 4323-8 #### JENNIFER ALBARRAN ([id number]) [facility] ([facility]) [address] [place] [address] 95423 ALP [Catalytic activity/Vol] 105 U/L Normal 33-110 [facility] Comment on above: Performed By: #### 2 4323-8 #### JENNIFER ALBARRAN ([id number]) [facility] ([facility]) [address] [place] [address] 47587 ALT With P-5'-P [Catalytic activity/Vol] 212 U/L High 7-45 [facility] Comment on above: Result Comment: Makayla ents treated with Sulfasalazine may generate falsely decreased results for ALT. Performed By: #### 2 4323-8 #### JENNIFER ALBARRAN ([id number]) [facility] ([facility]) [facility] [place] [address] Anion gap [Moles/Vol] 13 mmol/L Normal 10-20 [facility] Comment on above: Performed By: #### 2 4323-8 #### JENNIFER ALBARRAN ([id number]) [facility] ([facility]) [address] [place] [address] AST With P-5'-P [Catalytic activity/Vol] 24 U/L Normal 9-39 [facility] Comment on above: Performed By: #### 2 432-8 #### JENNIFER ALBARRAN ([id number]) [facility] ([facility]) [address] [place] [address] 99993 Bilirubin [Mass/Vol] 1.0 mg/dL Normal 0.0-1.2 [facility] Comment on above: Performed By: #### 2 4322-8 #### JENNIFER ALBARRAN ([id number]) [facility] ([facility]) [address] [place] [address] 45136 Calcium [Mass/Vol] 9.8 mg/dL Normal 8.6-10.3 [facility] Comment on above: Performed By: #### 2 4322-8 #### JENNIFER ALBARRAN ([id number]) [facility] ([facility]) [address] [place] [address] 84963 Chloride [Moles/Vol] 106 mmol/L Normal 98-107 [facility] Comment on above: Performed By: #### 2 4322-8 #### JENNIFER ALBARRAN ([id number]) [facility] ([facility]) [facility] [place] [address] CO2 [Moles/Vol] 21 mmol/L Normal 21-32 [facility] Comment on above: Performed By: #### 2 4323-8 #### JENNIFER ALBARRAN ([id number]) [facility] ([facility]) [address] [place] [address] 68976 Creatinine [Mass/Vol] 0.82 mg/dL Normal 0.50-1.05 [facility] Comment on above: Performed By: #### 2 4323-8 #### JENNIFER ALBARRAN ([id number]) [facility] ([facility]) [address] [place] [address] 59458 Glomerular filtration rate/1.73 sq M.predicted 90 mL/min/1.73m*2 Normal >60 [facility] Comment on above: Result Comment: Calc ulations of estimated GFR are performed using the 2020 CKD-EPI Study Refit equation without the race variable for the IDMS-Traceable creatinine methods. https://jasn.asnjournals.org/content//ASN.056 8621660 Performed By: #### 2 4323-8 #### JENNIFER ALBARRAN ([id number]) [facility] ([facility]) [address] [place] [address] 71385 Glucose [Mass/Vol] 144 mg/dL High 74-99 [facility] Comment on above: Performed By: #### 2 4323-8 #### JENNIFER ALBARRAN ([id number]) [facility] ([facility]) [address] [place] [address] 89841 Potassium [Moles/Vol] 4.1 mmol/L Normal 3.5-5.3 [facility] Comment on above: Performed By: #### 2 4323-8 #### JENNIFER ALBARRAN ([id number]) [facility] ([facility]) [address] [place] [address] 72459 Protein [Mass/Vol] 6.5 g/dL Normal 6.4-8.2 [facility] Comment on above: Performed By: #### 2 4323-8 #### JENNIFER ALBARRAN ([id number]) [facility] ([facility]) [address] [place] [address] 18973 Sodium [Moles/Vol] 136 mmol/L Normal 136-145 [facility] Comment on above: Performed By: #### 2 4323-8 #### JENNIFER ALBARRAN ([id number]) [facility] ([facility]) [address] [place] [address] 94720 Urea nitrogen [Mass/Vol] 21 mg/dL Normal 6-23 [facility] Comment on above: Performed By: #### 2 4323-8 #### JENNIFER ALBARRAN ([id number]) [facility] ([facility]) [address] [place] [id number] ECG 12-LEADon 09-21-2024 ECG 12-LEAD Ventricular Rate 65 Atrial Rate 65 P-R Interval 162 QRS Duration 94 Q-T Interval 412 QTC Calculation(Bazett) 428 P Morganza -14 R Morganza 266 T Morganza 59 QRS Count 11 Q Onset 203 [...] and clinical correlation Confirmed by Roselyn San ([id number]) on 09/25/2024 7:52:09 PM Normal [facility] Lipaseon 09-21-2024 Lipase [Catalytic activity/Vol] 51 U/L 9 - 82 U/L [facility] Lipase [Catalytic activity/V ol]on 09-21-2024 Interpretation and review of laboratory results Normal [facility] Venipuncture immedia tely after or during the administration of Metamizole may lead to falsely low results. Testing should be performed immediately prior to Metamizole dosing. [facility] Magnesiumon 09-21-2024 Magnesium [Mass/Vol] 1.57 mg/dL Low 1.60 - 2.40 mg/dL [facility] Magnesium [Mass/Vol] 1.57 mg/dL Low 1.60-2.40 [facility] Comment on above: Performed By: #### 1 9123-9 #### RODRIGUEZ AVIS ([id number]) [facility] ([facility]) [address] [id number] Natriuretic peptide B [Mass/ Vol]on 09-21-2024 Interpretation and review of laboratory results Abnormal [facility] Natriuretic peptide B (Bld) [Mass/Vol] pg/mL High 0 - 99 pg/mL [facility] <100 pg/mL - Heart failure unlikely 100-299 pg/mL - Intermediate probability of acute heart failure exacerbation. Correlate with clinical context and patient history. >=300 pg/mL - Heart Failure likely. Correlate with clinical context and patient history. BNP testing is performed using different testing methodology at [facility] than at other [facility]. Direct result comparisons should only be made within the same method. [facility] Natriuretic peptide B (Bld) [Mass/Vol] pg/mL High 0-99 [facility] Comment on above: Order Comment: <100 pg/mL - Heart failure unlikely 100-299 pg/mL - Intermediate probability of acute heart failure exacerbation. Correlate with clinical context and patient history. >=300 pg/mL - Heart Failure likely. Correlate with clinical context and patient history. BNP testing is performed using different testing methodology at [facility] than at other [facility]. Direct result comparisons should only be made within the same method. Performed By: #### 3 0934-4 #### RODRIGUEZ AVIS ([id number]) [facility] ([facility]) [address] [place] [address] No Panel Informationon 09-21 Interpretation and review of laboratory results Abnormal [facility] TRANSTHORACIC ECHO (TTE) COM PLETEon 09-21-2024 TRANSTHORACIC ECHO (TTE) [place] [address] [phone], TRANSTHORACIC ECHOCARDIOGRAM REPORT Patient Name: MICHELLE Freeman Physician: [id number] Grady Sky MD Study Date: 09/21/2024 Ordering Provider: [id number] JAXSON OSORIO MRN/PID: [id number] Fellow: Nurse: Date of /Age: 7 1980 / 44 years Search Analyst: Nabor Ruiz RDCS Gender Assigned at F Additional Staff: : Height: 162.56 cm Admit Date: Weight: 58.97 kg Admission Status: Outpatient BSA / BMI: 1.63 m2 / 22.31 Department Location: [facility] Echo Lab kg/m2 Blood Pressure: 138 /100 mmHg Study Type: TRANSTHORACIC ECHO (TTE) COMPLETE Diagnosis/ICD: Unspecified systolic (congestive) heart failure (CHF)-I50.20 CPT Codes: Echo Complete w Full Doppler-04742 Study Detail: The following Echo studies were [...] LA Area A2C: 17.2 cm2 LA Major Morganza A4C: 6.0 cm LA Major Morganza A2C: 5.3 cm LA Volume Index: 30.9 [...] mmHg (< 30mmHg) IVC Diam: 2.20 cm [id number] Grady Sky MD Electronically signed on 09/24/2024 at 7:36:17 AM Final Normal [facility] Triacylglycerol lipaseon Lipase [Catalytic activity/Vol] 51 U/L Normal 9-82 [facility] Comment on above: Order Comment: Venip uncture immediately after or during the administration of Metamizole may lead to falsely low results. Testing should be performed immediately prior to Metamizole dosing. Performed By: #### 3 040-3 #### RODRIGUEZ AVIS ([id number]) [facility] ([facility]) [address] [place] [address] Tropinin I.cardiac panel Hig h sensitivity methodon 09-21-2024 Interpretation and review of laboratory results Abnormal [facility] Less than 99th percentile of normal [...] using a different testing methodology at [facility] than at other [facility]. Direct result comparisons should only be made within the same method. [facility] Interpretation and review of laboratory results Abnormal [facility] Less than 99th percentile of normal [...] using a different testing methodology at [facility] than at other [facility]. Direct result comparisons should only be made within the same method. [facility] Troponin I, High Sensitivity , Initialon 09-21-2024 Tropinin I.cardiac panel High sensitivity method 49 ng/L High 0 - 13 ng/L [facility] Troponin I.cardiac panelon 0 09-21-2024 Tropinin I.cardiac panel High sensitivity method 48 ng/L High 0-13 [facility] Comment on above: Order Comment: Less than [...] using a different testing methodology at [facility] than at [facility]. Direct result comparisons should only be made within the same method. Performed By: #### 8 9577-1 #### RODRIGUEZ AVIS ([id number]) [facility] ([facility]) [address] [place] [address] Tropinin I.cardiac panel High sensitivity method 49 ng/L High 0-13 [facility] Comment on above: Order Comment: Less than [...] using a different testing methodology at [facility] than at other [facility]. Direct result comparisons should only be made within the same method. Performed By: #### 8 9577-1 #### RODRIGUEZ AVIS ([id number]) [facility] ([facility]) [address] [place] [address] Troponin, High Sensitivity, 1 Houron 09-21-2024 Tropinin I.cardiac panel High sensitivity method 48 ng/L High 0 - 13 ng/L [facility] Urinalysis complete W Reflex Culture panel (U)on 09-21-2024 Appearance (U) Clear Clear [facility] Bilirubin (U) [Mass/Vol] Negative NEG ATIVE mg/dL [facility] Color (U) Light-Yellow Light-Christian ow, Yellow, Dark-Yello w [facility] Epithelial cells.squamous Auto (Urine sed) [#/Area] 1-9 (SPARSE) Reference range not establishe d. /HPF [facility] Glucose Auto test strip (U) [Mass/Vol] Normal Normal mg/dL [facility] Interpretation and review of laboratory results Abnormal [facility] Ketones (U) [Mass/Vol] Negative NEGAT RUSH mg/dL [facility] Leukocyte esterase Auto test strip Ql (U) Negative NEGATIVE [facility] Mucus Auto (Urine sed) [#/Area] FEW Reference range not establishe d. /LPF [facility] Nitrite Auto test strip Ql (U) Negative NEGATIVE [facility] pH (U) 6.5 [pH] 5.0, 5.5, 6.0, 6.5, 7.0, 7.5, 8.0 [facility] Protein (U) [Mass/Vol] 30 (1+) Abnormal NEGAT RUSH, 10 (TRACE), 20 (TRACE) mg/dL [facility] RBC (U) [#/Vol] Negative NEGATIVE mg/dL [facility] RBC Auto (Urine sed) [#/Area] 6-10 Abnormal NONE, 1-2, 3-5 /HPF [facility] Specific gravity (U) [Rel density] 1.023 1.005 - 1.035 [facility] Urobilinogen (U) [Mass/Vol] Normal Normal mg/dL [facility] WBC Auto (Urine sed) [#/Area] 1-5 1-5, NONE /HPF [facility] Appearance (U) Clear Normal Clear [facility] Comment on above: Performed By: #### 5 8077-9 #### JENNIFER ALBARRAN ([id number]) [facility] ([facility]) [address] [place] [address] Bilirubin (U) [Mass/Vol] Negative Normal NEGATIVE [facility] Comment on above: Performed By: #### 5 8077-9 #### JENNIFER ALBARRAN ([id number]) [facility] ([facility]) [address] [place] [address] Color (U) Light-Yellow Normal Light-Christian ow, Yellow, Dark-Yello w [facility] Comment on above: Performed By: #### 5 8077-9 #### JENNIFER ALBARRAN ([id number]) [facility] ([facility]) [address] [place], [place] [address] Epithelial cells.squamous Auto (Urine sed) [#/Area] 1-9 (SPARSE) Normal Reference range not establishe d. [facility] Comment on above: Performed By: #### 5 8077-9 #### JENNIFER ALBARRAN ([id number]) [facility] ([facility]) [address] [place] [address] Glucose Auto test strip (U) [Mass/Vol] Normal Normal Normal [facility] Comment on above: Performed By: #### 5 8077-9 #### JENNIFER ALBARRAN ([id number]) [facility] ([facility]) [address] [place] [address] Ketones (U) [Mass/Vol] Negative Normal [facility]IVE [facility] Performed By: #### 5 8077-9 #### JENNIFER ALBARRAN ([id number]) [facility] ([facility]) [address] [place] [address] Leukocyte esterase Auto test strip Ql (U) Negative Normal NEGATIVE [facility] Comment on above: Performed By: #### 5 8077-9 #### JENNIFER ALBARRAN ([id number]) [facility] ([facility]) [address] [place] [address]88 Mucus Auto (Urine sed) [#/Area] FEW Normal Reference range not establishe d. [facility] Comment on above: Performed By: #### 5 8077-9 #### JENNIFER ALBARRAN ([id number]) [facility] ([facility]) [address] [place] [address] Nitrite Auto test strip Ql (U) Negative Normal NEGATIVE [facility] Comment on above: Performed By: #### 5 8077-9 #### JENNIFER ALBARRAN ([id number]) [facility] ([facility]) [address] [place] [address] pH (U) 6.5 [pH] Normal 5.0, 5.5, 6.0, 6.5, 7.0, 7.5, 8.0 [facility] Comment on above: Performed By: #### 5 8077-9 #### JENNIFER ALBARRAN ([id number]) [facility] ([facility]) [address] [place] [address] Protein (U) [Mass/Vol] 30 (1+) Abnormal NEGAT RUSH, 10 (TRACE), 20 (TRACE) [facility] Comment on above: Performed By: #### 5 8077-9 #### JENNIFER ALBARRAN ([id number]) [facility] ([facility]) [address] [place] [address]641 RBC (U) [#/Vol] Negative Normal NEGATIVE [facility] Comment on above: Performed By: #### 5 8077-9 #### JENNIFER ALBARRAN ([id number]) [facility] ([facility]) [address] [place] [address] 94207 RBC Auto (Urine sed) [#/Area] 6-10 Abnormal NONE, 1-2, 3-5 [facility] Comment on above: Performed By: #### 5 8077-9 #### JENNIFER ALBARRAN ([id number]) [facility] ([facility]) [address] [place] [address] Specific gravity (U) [Rel density] 1.023 Normal 1.005-1.03 5 [facility] Comment on above: Performed By: #### 5 8077-9 #### JENNIFER ALBARRAN ([id number]) [facility] ([facility]) [address] [place] [address] Urobilinogen (U) [Mass/Vol] Normal Normal Normal [facility] Comment on above: Performed By: #### 5 8077-9 #### JENNIFER ALBARRAN ([id number]) [facility] ([facility]) [address] [place] [address] WBC Auto (Urine sed) [#/Area] 1-5 Normal 1-5, NONE [facility] Comment on above: Performed By: #### 5 8077-9 #### JENNIFER ALBARRAN ([id number]) [facility] ([facility]) [address] [place] [address] CT ABDOMEN PELVIS W IV CONTR Munir 09-20-2024 CT ABDOMEN PELVIS W IV CONTRAST Interpreted By: Deondre Davila, STUDY: CT ABDOMEN PELVIS W IV CONTRAST; 09/21/2024 1:33 am INDICATION: Signs/Symptoms:abd pain. COMPARISON: Same day CTA of the chest. ACCESSION NUMBER(S): [id number] ORDERING CLINICIAN: ROCKY EVERETT TECHNIQUE: Contiguous axial [...] Deondre Davila 09/21/2024 1:44 AM Dictation workstation: [id number] [facility] CT ANGIO CHEST FOR PULMONARY EMBOLISMon 09-20-2024 CT ANGIO CHEST FOR PULMONARY EMBOLISM Interpreted By: Deondre Davila, STUDY: CT ANGIO CHEST FOR PULMONARY EMBOLISM; 09/21/2024 1:31 am INDICATION: Signs/Symptoms:sob - hx of PE - not anticoagulated. COMPARISON: None ACCESSION NUMBER(S): [id number] ORDERING CLINICIAN: ROCKY EVERETT TECHNIQUE: Helical data [...] along the fissures in the lower lobes, stmkb-qrwrerc-bnoi-left. 3. Mild cardiomegaly with some reflux of contrast into the hepatic veins and IVC, findings that may be seen in the setting of early right heart strain. Correlate with echocardiogram. MACRO: None Signed by: Deondre Davila 09/21/2024 1:38 AM Dictation workstation: [id number] [facility] Gastroenterology Visit Repor ton 09-18-2024 Gastroenterology Visit Report Normal [facility] Liver Profileon 09-15-2024 ALB Normal 3.5-5.0 [facility] Comment on above: Result Comment: Canc elled via OM: Order cancelled - Patient discharged Performed By: #### L 500.3400 ####[facility] [address] [place], [address] ALK PHOS Normal 35-104 [facility] Comment on above: Result Comment: Canc elled via OM: Order cancelled - Patient discharged Performed By: #### L 500.3400 ####[facility] [address] [place], [address] ALT Normal <=34 [facility] Comment on above: Result Comment: Canc elled via OM: Order cancelled - Patient discharged Performed By: #### L 500.3400 ####[facility] [address] [place], [address] AST Normal <=31 [facility] Comment on above: Result Comment: Canc elled via OM: Order cancelled - Patient discharged Performed By: #### L 500.3400 ####[facility] [address] [place], [address] D BILI Normal 0.00-0.30 [facility] Comment on above: Result Comment: Canc elled via OM: Order cancelled - Patient discharged Performed By: #### L 500.3400 ####[facility] [address] [place], [address] T BILI Normal 0.00-1.30 [facility] Comment on above: Result Comment: Canc elled via OM: Order cancelled - Patient discharged Performed By: #### L 500.3400 ####[facility] [address] [place], [address] T PROT Normal 5.9-8.4 [facility] Comment on above: Result Comment: Canc elled via OM: Order cancelled - Patient discharged Performed By: #### L 500.3400 ####[facility] [address] [place], [address] Absolute lymphocyte countOrd ered By: Emerson Sierra on 09-14-2024 Lymphocytes Auto (Unsp spec) [#/Vol] 1.17 10*3/uL 0.83-4.51 [facility] Anion gap in Serum or Plasma Ordered By: Emerson Sierra on 09-14-2024 Anion gap [Moles/Vol] 12 mmol/L 5-15 [facility] Automated lymphocyte count a s percentage of total leukocytesOrdered By: Emerson Sierra on 09-14-2024 Lymphocytes/100 WBC Auto (Unsp spec) 6.7 % Low 19-41 [facility] BUN/creatinine ratioOrdered By: Emerson Sierra on 09-14-2024 Urea nitrogen/Creatinine [Mass ratio] 19.8 mg/mg 10- [facility] Basic Metabolic Profile (BMP )on 09-14-2024 BUN/CRE 19.8 RATIO Normal - [facility] Comment on above: Performed By: #### L 500.3400, L100.0100, L500.2500 ####[facility] [address] [place], [address] Calcium [Mass/Vol] 9.6 mg/dL Normal 7.6-11.0 [facility] Comment on above: Performed By: #### L 500.3400, L100.0100, L500.2500 ####[facility] [address] [place], [address] Chloride [Moles/Vol] 101 mmol/L Normal 98-108 [facility] Comment on above: Performed By: #### L 500.3400, L100.0100, L500.2500 ####[facility] [address] [place], [address] CO2 [Moles/Vol] 18.9 mmol/L Low 21.0-32.0 [facility] Comment on above: Performed By: #### L 500.3400, L100.0100, L500.2500 ####[facility] [address] [place], [address] Creatinine [Mass/Vol] 0.98 mg/dL Normal 0.70-1.20 [facility] Comment on above: Performed By: #### L 500.3400, L100.0100, L500.2500 ####[facility] [address] [place], [address] ECRCL 63.26 ml/min Normal 50-250 [facility] Comment on above: Performed By: #### L 500.3400, L100.0100, L500.2500 ####[facility] [address] [place], [address] GAP 12 Normal 5-15 [facility] Comment on above: Performed By: #### L 500.3400, L100.0100, L500.2500 ####[facility] [address] [place], [address] GFR/1.73 sq M.predicted among non-blacks MDRD (S/P/Bld) [Vol rate/Area] 73 mL/min/{1.73_m2} Normal >60 [facility] Comment on above: Result Comment: mL/m in/1.73m2 CKD-EPI Creatinine Equation (2020) Performed By: #### L 500.3400, L100.0100, L500.2500 ####[facility] [address] [place], [address] Glucose [Mass/Vol] 119 mg/dL High 70-99 [facility] Comment on above: Performed By: #### L 500.3400, L100.0100, L500.2500 ####[facility] [address] [place], [address] Potassium [Moles/Vol] 4.6 mmol/L Normal 3.3-5.1 [facility] Comment on above: Performed By: #### L 500.3400, L100.0100, L500.2500 ####[facility] [address] [place], [address] Sodium [Moles/Vol] 131 mmol/L Low 133-145 [facility] Comment on above: Performed By: #### L 500.3400, L100.0100, L500.2500 ####[facility] [address] [place], [address] Urea nitrogen [Mass/Vol] 19 mg/dL Normal 4-19 [facility] Comment on above: Performed By: #### L 500.3400, L100.0100, L500.2500 ####[facility] [address] [place], [address] Basophil percentageOrdered B y: Emerson Sierra on 09-14-2024 Basophils/100 WBC (Bld) 0.2 % 0-1 [facility] Bilirubin directOrdered By: Emerson Sierra on 09-14-2024 Bilirubin.direct [Mass/Vol] 0.39 mg/dL High 0.00-0.30 [facility] Bilirubin, totalOrdered By: Emerson Sierra on 07-04-2025 Bilirubin [Mass/Vol] 0.90 mg/dL 0.00-1.30 [facility] CBC W/Diff, Automatedon 07-0 4-2025 Absolute Lymph 1.17 X10 3/uL Normal 0.83-4.51 [facility] Comment on above: Performed By: #### L 500.3400, L100.0100, L500.2500 ####[facility] [address] [place], [address] Absolute Neut 14.5 X10 3/uL High 2.0-7.7 [facility] Comment on above: Performed By: #### L 500.3400, L100.0100, L500.2500 ####[facility] [address] [place], [address] Basophils/100 WBC (Bld) 0.2 % Normal 0-1 [facility] Comment on above: Performed By: #### L 500.3400, L100.0100, L500.2500 ####[facility] [address] [place], [address] Eosinophils/100 WBC (Bld) 0.1 % Normal 0-5 [facility] Comment on above: Performed By: #### L 500.3400, L100.0100, L500.2500 ####[facility] [address] [place], [address] Erythrocyte distribution width (RBC) [Ratio] 14.5 % Normal 11.6-14.6 [facility] Comment on above: Performed By: #### L 500.3400, L100.0100, L500.2500 ####[facility] [address] [place], [address] Hematocrit (Bld) [Volume fraction] 38.4 % Normal 37-47 [facility] Comment on above: Performed By: #### L 500.3400, L100.0100, L500.2500 ####[facility] [address] [place], [address] Hemoglobin (Bld) [Mass/Vol] 12.2 g/dL Normal 12.0-15.0 [facility] Comment on above: Performed By: #### L 500.3400, L100.0100, L500.2500 ####[facility] [address] [place], [address] IG% 0.700 Normal 0.0-0.9 [facility] Comment on above: Result Comment: IG% - Immature Granulocytes (promyelocytes, myelocytes andmetamyelocytes) > 1% indicates that a LEFT SHIFT is Present. Performed By: #### L 500.3400, L100.0100, L500.2500 ####[facility] [address] [place], [address] Lymphocytes/100 WBC (Bld) 6.7 % Low 19-41 [facility] Comment on above: Performed By: #### L 500.3400, L100.0100, L500.2500 ####[facility] [address] [place], [address] MCH (RBC) [Entitic mass] 30.7 pg Normal 27.0-32.0 [facility] Comment on above: Performed By: #### L 500.3400, L100.0100, L500.2500 ####[facility] [address] [place], [address] MCHC (RBC) [Mass/Vol] 31.8 g/dL Low 32-36 [facility] Comment on above: Performed By: #### L 500.3400, L100.0100, L500.2500 ####[facility] [address] [place], [address] MCV (RBC) [Entitic vol] 96.5 fL Normal 81-99 [facility] Comment on above: Performed By: #### L 500.3400, L100.0100, L500.2500 ####[facility] [address] [place], [address] Monocytes/100 WBC (Bld) 8.8 % Normal 0-10 [facility] Comment on above: Performed By: #### L 500.3400, L100.0100, L500.2500 ####[facility] [address] [place], [address] Neutrophils/100 WBC (Bld) 83.5 % High 47-70 [facility] Comment on above: Performed By: #### L 500.3400, L100.0100, L500.2500 ####[facility] [address] [place], [address] Nucleated RBC (Bld) [#/Vol] 0 10*3/uL Normal 0-5 [facility] Comment on above: Performed By: #### L 500.3400, L100.0100, L500.2500 ####[facility] [address] [place], [address] Platelet mean volume (Bld) [Entitic vol] 10.2 fL Normal 6.2-12.0 [facility] Comment on above: Performed By: #### L 500.3400, L100.0100, L500.2500 ####[facility] [address] [place], [address] Platelets (Bld) [#/Vol] 339 10*3/uL Normal 150-450 [facility] Comment on above: Performed By: #### L 500.3400, L100.0100, L500.2500 ####[facility] [address] [place], [address] RBC (Bld) [#/Vol] 3.98 10*6/uL Low 4.2-5.4 [facility] Comment on above: Performed By: #### L 500.3400, L100.0100, L500.2500 ####[facility] [address] [place], [address] RDW SD 51.4 fl High 35.1-43.9 [facility] Comment on above: Performed By: #### L 500.3400, L100.0100, L500.2500 ####[facility] [address] [place], [address] WBC (Bld) [#/Vol] 17.3 10*3/uL High 4.4-11.0 [facility] Comment on above: Performed By: #### L 500.3400, L100.0100, L500.2500 ####[facility] [address] [place], [address] Carbon dioxide, total [Moles /volume] in Central venous bloodOrdered By: Emerson Sierra on 09-14-2024 CO2 [Moles/Vol] 18.9 mmol/L Low 21.0-32.0 [facility] Chloride assayOrdered By: Yaniv Sierra on 09-14-2024 Chloride [Moles/Vol] 101 mmol/L 98-108 [facility] Discharge Instructionon 07-0 Discharge Instruction Normal [facility] Eosinophil percentageOrdered By: Emerson Sierra on 09-14-2024 Eosinophils/100 WBC (Bld) 0.1 % 0-5 [facility] Erythrocyte distribution wid th ratioOrdered By: Emerson Sierra on 09-14-2024 Erythrocyte distribution width (RBC) [Ratio] 14.5 % 11.6-14.6 [facility] Erythrocyte distribution wid th standard deviationOrdered By: Emerson Sierra on 09-14-2024 Erythrocyte distribution width (RBC) [Ratio] 51.4 fl High 35.1-43.9 [facility] Glomerular filtration rate ( GFR) estimation/1.73 sq m using serum, plasma, or whole bOrdered By: Emerson Sierra on 09-14-2024 GFR/1.73 sq M.predicted among non-blacks MDRD (S/P/Bld) [Vol rate/Area] 73 mL/min/{1.73_m2} >60 [facility] Hematocrit Auto (Bld) [Volum e fraction]Ordered By: Emerson Sierra on 09-14-2024 Hematocrit (Bld) [Volume fraction] 38.4 % 37-47 [facility] Hemoglobin measurementOrdere d By: Emerson Sierra on 09-14-2024 Hemoglobin (Bld) [Mass/Vol] 12.2 g/dL 12.0-15.0 [facility] Immature granulocytes/100 WB C Auto (Bld)Ordered By: Emerson Sierra on 09-14-2024 Immature granulocytes/100 WBC (Bld) 0.700 % 0.0-0.9 [facility] L501.5101on 09-14-2024 GGTP 45 IU/L Normal 0-60 [facility] Comment on above: Result Comment: Perf ormed at: [facility] [address] [id number] Director: Victor M Hargrove PhD, Phone: [phone] Performed By: #### L 501.5101 ####[facility] [address] [place], [address] Liver Profileon 09-14-2024 Albumin [Mass/Vol] 4.6 g/dL Normal 3.5-5.0 [facility] Comment on above: Performed By: #### L 500.3400, L100.0100, L500.2500 ####[facility] [address] [place], [address] ALK PHOS 153 U/L High 35-104 [facility] Comment on above: Performed By: #### L 500.3400, L100.0100, L500.2500 ####[facility] [address] [place], [address] ALT [Catalytic activity/Vol] 322 U/L High <=34 [facility] Comment on above: Performed By: #### L 500.3400, L100.0100, L500.2500 ####[facility] [address] [place], [address] AST [Catalytic activity/Vol] 443 U/L High <=31 [facility] Comment on above: Performed By: #### L 500.3400, L100.0100, L500.2500 ####[facility] [address] [place], [address] Bilirubin [Mass/Vol] 0.90 mg/dL Normal 0.00-1.30 [facility] Comment on above: Performed By: #### L 500.3400, L100.0100, L500.2500 ####[facility] [address] [place], [address] Bilirubin.direct [Mass/Vol] 0.39 mg/dL High 0.00-0.30 [facility] Comment on above: Performed By: #### L 500.3400, L100.0100, L500.2500 ####[facility] [address] [place], [address] Globulin (S) [Mass/Vol] 2.7 g/dL Normal 2.2-4.2 [facility] Comment on above: Performed By: #### L 500.3400, L100.0100, L500.2500 ####[facility] [address] [place], [address] T PROT 7.3 g/dL Normal 5.9-8.4 [facility] Comment on above: Performed By: #### L 500.3400, L100.0100, L500.2500 ####[facility] [address] [place], [address] MCV (mean corpuscular volume ) determinationOrdered By: Emerson Sierra on 09-14-2024 MCV (RBC) [Entitic vol] 96.5 fL 81-99 [facility] Mean corpuscular hemoglobin (MCH) determinationOrdered By: Emerson Sierra on 09-14-2024 MCH (RBC) [Entitic mass] 30.7 pg 27.0-32.0 [facility] Monocyte percentageOrdered B y: Emerson Sierra on 09-14-2024 Monocytes/100 WBC (Bld) 8.8 % 0-10 [facility] Neutrophil percentageOrdered By: Emerson Sierra on 09-14-2024 Neutrophils/100 WBC (Bld) 83.5 % High 47-70 [facility] No Panel InformationOrdered By: Emerson Sierra on 09-14-2024 443 U/L High <32 [facility] Platelet countOrdered By: Yaniv Sierra on 09-14-2024 Platelets (Bld) [#/Vol] 339 10*3/uL 150-450 [facility] Potassium measurement (mass/ volume)Ordered By: Emerson Sierra on 09-14-2024 Potassium (Unsp spec) [Mass/Vol] 4.6 mmol/L 3.3-5.1 [facility] RBC Auto (Bld) [#/Vol]Ordere d By: Emerson Sierra on 09-14-2024 RBC (Bld) [#/Vol] 3.98 10*6/uL Low 4.2-5.4 [facility] Serum creatinine measurement (mass/volume)Ordered By: Emerson Sierra on 09-14-2024 Creatinine [Mass/Vol] 0.98 mg/dL 0.70-1.20 [facility] Serum globulin measurementOr dered By: Emerson Sierra on 09-14-2024 Globulin (S) [Mass/Vol] 2.7 g/dL 2.2-4.2 [facility] Serum glucose measurement (m ass/volume)Ordered By: Emerson Sierra on 09-14-2024 Glucose [Mass/Vol] 119 mg/dL High 70-99 [facility] Serum or plasma alanine hair otransferase (ALT) measurementOrdered By: Emerson Sierra on 09-14-2024 ALT [Catalytic activity/Vol] 322 U/L High <35 [facility] Serum or plasma albumin leslie urement (mass/volume)Ordered By: Emerson Sierra on 09-14-2024 Albumin [Mass/Vol] 4.6 g/dL 3.5-5.0 [facility] Serum or plasma alkaline delfin sphatase measurementOrdered By: Emerson Sierra on 09-14-2024 ALP [Catalytic activity/Vol] 153 U/L High 35-104 [facility] Serum or plasma calcium leslie urement (mass/volume)Ordered By: Emesron Sierra on 09-14-2024 Calcium [Mass/Vol] 9.6 mg/dL 7.6-11.0 [facility] Serum or plasma urea nitroge n measurement (mass/volume)Ordered By: Emreson Sierra on 09-14-2024 Urea nitrogen [Mass/Vol] 19 mg/dL 4-19 [facility] Sodium levelOrdered By: Wilton Sierra on 09-14-2024 Sodium [Moles/Vol] 131 mmol/L Low 133-145 [facility] Total proteinOrdered By: Bernie Sierra on 09-14-2024 Protein [Mass/Vol] 7.3 g/dL 5.9-8.4 [facility] White blood cell (WBC) count Ordered By: Emerson Sierra on 09-14-2024 WBC (Bld) [#/Vol] 17.3 10*3/uL High 4.4-11.0 [facility] Basic Metabolic Profile (BMP )on 09-13-2024 BUN/CRE 21.6 RATIO High 10-20 [facility] Comment on above: Performed By: #### L 501.2300, L500.2500, L500.3400 ####[facility] [address] [place], [address] Calcium [Mass/Vol] 9.7 mg/dL Normal 7.6-11.0 [facility] Comment on above: Performed By: #### L 501.2300, L500.2500, L500.3400 ####[facility] [address] [place], [address] Chloride [Moles/Vol] 101 mmol/L Normal 98-108 [facility] Comment on above: Performed By: #### L 501.2300, L500.2500, L500.3400 ####[facility] [address] [place], [address] CO2 [Moles/Vol] 17.5 mmol/L Low 21.0-32.0 [facility] Comment on above: Performed By: #### L 501.2300, L500.2500, L500.3400 ####[facility] [address] [place], [address] Creatinine [Mass/Vol] 0.87 mg/dL Normal 0.70-1.20 [facility] Comment on above: Performed By: #### L 501.2300, L500.2500, L500.3400 ####[facility] [address] [place], [address] ECRCL 71.26 ml/min Normal 50-250 [facility] Comment on above: Performed By: #### L 501.2300, L500.2500, L500.3400 ####[facility] [address] [place], [address] GAP 15 Normal 5-15 [facility] Comment on above: Performed By: #### L 501.2300, L500.2500, L500.3400 ####[facility] [address] [place], [address] GFR/1.73 sq M.predicted among non-blacks MDRD (S/P/Bld) [Vol rate/Area] 85 mL/min/{1.73_m2} Normal >60 [facility] Comment on above: Result Comment: mL/m in/1.73m2 CKD-EPI Creatinine Equation (2020) Performed By: #### L 501.2300, L500.2500, L500.3400 ####[facility] [address] [place], [address] Glucose [Mass/Vol] 79 mg/dL Normal 70-99 [facility] Comment on above: Performed By: #### L 501.2300, L500.2500, L500.3400 ####[facility] [address] [place], [address] Potassium [Moles/Vol] 5.0 mmol/L Normal 3.3-5.1 [facility] Comment on above: Performed By: #### L 501.2300, L500.2500, L500.3400 ####[facility] [address] [place], [address] Sodium [Moles/Vol] 133 mmol/L Normal 133-145 [facility] Comment on above: Performed By: #### L 501.2300, L500.2500, L500.3400 ####[facility] [address] [place], [address] Urea nitrogen [Mass/Vol] 19 mg/dL Normal 4-19 [facility] Comment on above: Performed By: #### L 501.2300, L500.2500, L500.3400 ####[facility] [address] [place], [address] CBC W/Diff, Automatedon 07-0 3-2025 Absolute Lymph 1.21 X10 3/uL Normal 0.83-4.51 [facility] Comment on above: Performed By: #### L 100.0100 ####[facility] [address] [place], [address] Absolute Neut 16.5 X10 3/uL High 2.0-7.7 [facility] Comment on above: Performed By: #### L 100.0100 ####[facility] [address] [place], [address] Basophils/100 WBC (Bld) 0.2 % Normal 0-1 [facility] Comment on above: Performed By: #### L 100.0100 ####[facility] [address] [place], [address] Eosinophils/100 WBC (Bld) 0.1 % Normal 0-5 [facility] Comment on above: Performed By: #### L 100.0100 ####[facility] [address] [place], [address] Erythrocyte distribution width (RBC) [Ratio] 14.5 % Normal 11.6-14.6 [facility] Comment on above: Performed By: #### L 100.0100 ####[facility] [address] [place], [address] Hematocrit (Bld) [Volume fraction] 41.1 % Normal 37-47 [facility] Comment on above: Performed By: #### L 100.0100 ####[facility] [address] [place], [address] Hemoglobin (Bld) [Mass/Vol] 12.7 g/dL Normal 12.0-15.0 [facility] Comment on above: Performed By: #### L 100.0100 ####[facility] [address] [place], [address] IG% 0.900 Normal 0.0-0.9 [facility] Comment on above: Result Comment: IG% - Immature Granulocytes (promyelocytes, myelocytes andmetamyelocytes) > 1% indicates that a LEFT SHIFT is Present. Performed By: #### L 100.0100 ####[facility] [address] [place], [address] Lymphocytes/100 WBC (Bld) 6.3 % Low 19-41 [facility] Comment on above: Performed By: #### L 100.0100 ####[facility] [address] [place], [address] MCH (RBC) [Entitic mass] 30.7 pg Normal 27.0-32.0 [facility] Comment on above: Performed By: #### L 100.0100 ####[facility] [address] [place], [address] MCHC (RBC) [Mass/Vol] 30.9 g/dL Low 32-36 [facility] Comment on above: Performed By: #### L 100.0100 ####[facility] [address] [place], [address] MCV (RBC) [Entitic vol] 99.3 fL High 81-99 [facility] Comment on above: Performed By: #### L 100.0100 ####[facility] [address] [place], [address] Monocytes/100 WBC (Bld) 6.7 % Normal 0-10 [facility] Comment on above: Performed By: #### L 100.0100 ####[facility] [address] [place], [address] Neutrophils/100 WBC (Bld) 85.8 % High 47-70 [facility] Comment on above: Performed By: #### L 100.0100 ####[facility] [address] [place], [address] Nucleated RBC (Bld) [#/Vol] 0 10*3/uL Normal 0-5 [facility] Comment on above: Performed By: #### L 100.0100 ####[facility] [address] [place], [address] Platelet mean volume (Bld) [Entitic vol] 10.5 fL Normal 6.2-12.0 [facility] Comment on above: Performed By: #### L 100.0100 ####[facility] [address] [place], [address] Platelets (Bld) [#/Vol] 359 10*3/uL Normal 150-450 [facility] Comment on above: Performed By: #### L 100.0100 ####[facility] [address] [place], [address] RBC (Bld) [#/Vol] 4.14 10*6/uL Low 4.2-5.4 [facility] Comment on above: Performed By: #### L 100.0100 ####[facility] [address] [place], [address] RDW SD 52.7 fl High 35.1-43.9 [facility] Comment on above: Performed By: #### L 100.0100 ####[facility] [address] [place], [address] WBC (Bld) [#/Vol] 19.2 10*3/uL High 4.4-11.0 [facility] Comment on above: Performed By: #### L 100.0100 ####[facility] [address] [place], [address] Discharge Instructionon 07-0 Discharge Instruction Normal [facility] Gamma glutamyl transferase ( GGT) measurementOrdered By: Emerson Sierra on 09-13-2024 Amylase [Catalytic activity/Vol] 45 U/L 0-60 [facility] L501.5101on 09-13-2024 GGTP 39 IU/L Normal 0-60 [facility] Comment on above: Result Comment: Perf ormed at: CB - [facility] [address] [id number] Director: Victor M Hargrove PhD, Phone: [phone] Performed By: #### L 501.5101 ####[facility] [address] [place], [address] Liver Profileon 09-13-2024 Albumin [Mass/Vol] 4.5 g/dL Normal 3.5-5.0 [facility] Comment on above: Performed By: #### L 501.2300, L500.2500, L500.3400 ####[facility] [address] [place], [address] ALK PHOS 146 U/L High 35-104 [facility] Comment on above: Performed By: #### L 501.2300, L500.2500, L500.3400 ####[facility] [address] [place], [address] ALT [Catalytic activity/Vol] 28 U/L Normal <=34 [facility] Comment on above: Performed By: #### L 501.2300, L500.2500, L500.3400 ####[facility] [address] [place], [address] AST [Catalytic activity/Vol] 34 U/L High <=31 [facility] Comment on above: Performed By: #### L 501.2300, L500.2500, L500.3400 ####[facility] [address] [place], [address] Bilirubin [Mass/Vol] 1.13 mg/dL Normal 0.00-1.30 [facility] Comment on above: Performed By: #### L 501.2300, L500.2500, L500.3400 ####[facility] [address] [place], [address] Bilirubin.direct [Mass/Vol] 0.41 mg/dL High 0.00-0.30 [facility] Comment on above: Performed By: #### L 501.2300, L500.2500, L500.3400 ####[facility] [address] [place], [address] Globulin (S) [Mass/Vol] 2.8 g/dL Normal 2.2-4.2 [facility] Comment on above: Performed By: #### L 501.2300, L500.2500, L500.3400 ####[facility] [address] [place], [address] T PROT 7.3 g/dL Normal 5.9-8.4 [facility] Comment on above: Performed By: #### L 501.2300, L500.2500, L500.3400 ####[facility] [address] [place], [address] Phosphoruson --2024 Phosphate [Mass/Vol] 5.2 mg/dL High 2.7-4.5 [facility] Comment on above: Performed By: #### L 501.2300, L500.2500, L500.3400 ####[facility] [address] [place], [address] CBC W/Diff, Automatedon 07-0 Absolute Lymph 0.53 X10 3/uL Low 0.83-4.51 [facility] Comment on above: Performed By: #### L 501.2450, L501.9520, L500.4050, L501.2300, L100.0100 ####[facility] [address] [place], [address] Absolute Neut 17.7 X10 3/uL High 2.0-7.7 [facility] Comment on above: Performed By: #### L 501.2450, L501.9520, L500.4050, L501.2300, L100.0100 ####[facility] [address] [place], [address] Basophils/100 WBC (Bld) 0.2 % Normal 0-1 [facility] Comment on above: Performed By: #### L 501.2450, L501.9520, L500.4050, L501.2300, L100.0100 ####[facility] [address] [place], [address] Eosinophils/100 WBC (Bld) 0.0 % Normal 0-5 [facility] Comment on above: Performed By: #### L 501.2450, L501.9520, L500.4050, L501.2300, L100.0100 ####[facility] [address] [place], [address] Erythrocyte distribution width (RBC) [Ratio] 14.6 % Normal 11.6-14.6 [facility] Comment on above: Performed By: #### L 501.2450, L501.9520, L500.4050, L501.2300, L100.0100 ####[facility] [address] [place], [address] Hematocrit (Bld) [Volume fraction] 42.4 % Normal 37-47 [facility] Comment on above: Performed By: #### L 501.2450, L501.9520, L500.4050, L501.2300, L100.0100 ####[facility] [address] [place], [address] Hemoglobin (Bld) [Mass/Vol] 13.5 g/dL Normal 12.0-15.0 [facility] Comment on above: Performed By: #### L 501.2450, L501.9520, L500.4050, L501.2300, L100.0100 ####[facility] [address] [place], [address] IG% 0.500 Normal 0.0-0.9 [facility] Comment on above: Result Comment: IG% - Immature Granulocytes (promyelocytes, myelocytes andmetamyelocytes) > 1% indicates that a LEFT SHIFT is Present. Performed By: #### L 501.2450, L501.9520, L500.4050, L501.2300, L100.0100 ####[facility] [address] [place], [address] Lymphocytes/100 WBC (Bld) 2.8 % Low 19-41 [facility] Comment on above: Performed By: #### L 501.2450, L501.9520, L500.4050, L501.2300, L100.0100 ####[facility] [address] [place], [address] MCH (RBC) [Entitic mass] 30.9 pg Normal 27.0-32.0 [facility] Comment on above: Performed By: #### L 501.2450, L501.9520, L500.4050, L501.2300, L100.0100 ####[facility] [address] [place], [address] MCHC (RBC) [Mass/Vol] 31.8 g/dL Low 32-36 [facility] Comment on above: Performed By: #### L 501.2450, L501.9520, L500.4050, L501.2300, L100.0100 ####[facility] [address] [place], [address] MCV (RBC) [Entitic vol] 97.0 fL Normal 81-99 [facility] Comment on above: Performed By: #### L 501.2450, L501.9520, L500.4050, L501.2300, L100.0100 ####[facility] [address] [place], [address] Monocytes/100 WBC (Bld) 1.7 % Normal 0-10 [facility] Comment on above: Performed By: #### L 501.2450, L501.9520, L500.4050, L501.2300, L100.0100 ####[facility] [address] [place], [address] Neutrophils/100 WBC (Bld) 94.8 % High 47-70 [facility] Comment on above: Performed By: #### L 501.2450, L501.9520, L500.4050, L501.2300, L100.0100 ####[facility] [address] [place], [address] Nucleated RBC (Bld) [#/Vol] 0 10*3/uL Normal 0-5 [facility] Comment on above: Performed By: #### L 501.2450, L501.9520, L500.4050, L501.2300, L100.0100 ####[facility] [address] [place], [address] Platelet mean volume (Bld) [Entitic vol] 10.4 fL Normal 6.2-12.0 [facility] Comment on above: Performed By: #### L 501.2450, L501.9520, L500.4050, L501.2300, L100.0100 ####[facility] [address] [place], [address] Platelets (Bld) [#/Vol] 309 10*3/uL Normal 150-450 [facility] Comment on above: Performed By: #### L 501.2450, L501.9520, L500.4050, L501.2300, L100.0100 ####[facility] [address] [place], [address] RBC (Bld) [#/Vol] 4.37 10*6/uL Normal 4.2-5.4 [facility] Comment on above: Performed By: #### L 501.2450, L501.9520, L500.4050, L501.2300, L100.0100 ####[facility] [address] [place], [address] RDW SD 51.8 fl High 35.1-43.9 [facility] Comment on above: Performed By: #### L 501.2450, L501.9520, L500.4050, L501.2300, L100.0100 ####[facility] [address] [place], [address] WBC (Bld) [#/Vol] 18.7 10*3/uL High 4.4-11.0 [facility] Comment on above: Performed By: #### L 501.2450, L501.9520, L500.4050, L501.2300, L100.0100 ####[facility] [address] [place], [address] CT Abd/Pelvis W/WO Contrasto n 09-12-2024 CT Abd/Pelvis W/WO Contrast Normal [facility] Comprehensive Metabolic Prof ilon 09-12-2024 Albumin [Mass/Vol] 4.2 g/dL Normal 3.5-5.0 [facility] Comment on above: Performed By: #### L 501.2450, L501.9520, L500.4050, L501.2300, L100.0100 ####[facility] [address] [place], [address] Albumin/Globulin [Mass ratio] 1.5 {ratio} Normal 0.9-2.4 [facility] Comment on above: Performed By: #### L 501.2450, L501.9520, L500.4050, L501.2300, L100.0100 ####[facility] [address] [place], [address] ALK PHOS 146 U/L High 35-104 [facility] Comment on above: Performed By: #### L 501.2450, L501.9520, L500.4050, L501.2300, L100.0100 ####[facility] [address] [place], [address] ALT [Catalytic activity/Vol] 19 U/L Normal <=34 [facility] Comment on above: Performed By: #### L 501.2450, L501.9520, L500.4050, L501.2300, L100.0100 ####[facility] [address] [place], [address] AST [Catalytic activity/Vol] 28 U/L Normal <=31 [facility] Comment on above: Result Comment: Hemo lysis present, Results??could be affected.?? Performed By: #### L 501.2450, L501.9520, L500.4050, L501.2300, L100.0100 ####[facility] [address] [place], [address] Bilirubin [Mass/Vol] 1.02 mg/dL Normal 0.00-1.30 [facility] Comment on above: Performed By: #### L 501.2450, L501.9520, L500.4050, L501.2300, L100.0100 ####[facility] [address] [place], [address] BUN/CRE 21.9 RATIO High 10-20 [facility] Comment on above: Performed By: #### L 501.2450, L501.9520, L500.4050, L501.2300, L100.0100 ####[facility] [address] [place], [address] Calcium [Mass/Vol] 9.0 mg/dL Normal 7.6-11.0 [facility] Comment on above: Performed By: #### L 501.2450, L501.9520, L500.4050, L501.2300, L100.0100 ####[facility] [address] [place], [address] Chloride [Moles/Vol] 104 mmol/L Normal 98-108 [facility] Comment on above: Performed By: #### L 501.2450, L501.9520, L500.4050, L501.2300, L100.0100 ####[facility] [address] [place], [address] CO2 [Moles/Vol] 15.3 mmol/L Low 21.0-32.0 [facility] Comment on above: Performed By: #### L 501.2450, L501.9520, L500.4050, L501.2300, L100.0100 ####[facility] [address] [place], [address] Creatinine [Mass/Vol] 0.74 mg/dL Normal 0.70-1.20 [facility] Comment on above: Performed By: #### L 501.2450, L501.9520, L500.4050, L501.2300, L100.0100 ####[facility] [address] [place], [address] ECRCL 83.77 ml/min Normal 50-250 [facility] Comment on above: Performed By: #### L 501.2450, L501.9520, L500.4050, L501.2300, L100.0100 ####[facility] [address] [place], [address] GAP 15 Normal 5-15 [facility] Comment on above: Performed By: #### L 501.2450, L501.9520, L500.4050, L501.2300, L100.0100 ####[facility] [address] [place], [address] GFR/1.73 sq M.predicted among non-blacks MDRD (S/P/Bld) [Vol rate/Area] 102 mL/min/{1.73_m2} Normal >60 [facility] Comment on above: Result Comment: mL/m in/1.73m2 CKD-EPI Creatinine Equation (2020) Performed By: #### L 501.2450, L501.9520, L500.4050, L501.2300, L100.0100 ####[facility] [address] [place], [address] Globulin (S) [Mass/Vol] 2.8 g/dL Normal 2.2-4.2 [facility] Comment on above: Performed By: #### L 501.2450, L501.9520, L500.4050, L501.2300, L100.0100 ####[facility] [address] [place], [address] Glucose [Mass/Vol] 123 mg/dL High 70-99 [facility] Comment on above: Performed By: #### L 501.2450, L501.9520, L500.4050, L501.2300, L100.0100 ####[facility] [address] [place], [address] Potassium [Moles/Vol] 4.8 mmol/L Normal 3.3-5.1 [facility] Comment on above: Result Comment: Hemo lysis present, Results??could be affected.?? Performed By: #### L 501.2450, L501.9520, L500.4050, L501.2300, L100.0100 ####[facility] [address] [place], [address] Sodium [Moles/Vol] 135 mmol/L Normal 133-145 [facility] Comment on above: Performed By: #### L 501.2450, L501.9520, L500.4050, L501.2300, L100.0100 ####[facility] [address] [place], [address] T PROT 7.0 g/dL Normal 5.9-8.4 [facility] Comment on above: Performed By: #### L 501.2450, L501.9520, L500.4050, L501.2300, L100.0100 ####[facility] [address] [place], [address] Urea nitrogen [Mass/Vol] 16 mg/dL Normal 4-19 [facility] Comment on above: Performed By: #### L 501.2450, L501.9520, L500.4050, L501.2300, L100.0100 ####[facility] [address] [place], [address] Lipaseon 09-12-2024 Lipase [Catalytic activity/Vol] 50 U/L Normal 13-75 [facility] Comment on above: Result Comment: Liam rader note:LIPASE revised reference range effective 22.New Lipase methodology. Expected to produce lower valuesthan the previous assay method.NEW Reference Range: 13 - 75 U/L Performed By: #### L 501.2450, L501.9520, L500.4050, L501.2300, L100.0100 ####[facility] [address] [place], [address] MR/CON.PCM.GIon 09-12-2024 MR/CON.PCM.GI Normal [facility] Magnesiumon 09-12-2024 Magnesium [Mass/Vol] 1.8 mg/dL Normal 1.5-2.2 [facility] Comment on above: Performed By: #### L 501.5200 ####[facility] [address] [place], [address] Phosphoruson 09-12-2024 Phosphate [Mass/Vol] 3.7 mg/dL Normal 2.7-4.5 [facility] Comment on above: Performed By: #### L 501.2450, L501.9520, L500.4050, L501.2300, L100.0100 ####[facility] [address] [place], [address] Serum or plasma albumin/glob ulin mass ratioOrdered By: Sergio Whalen on 09-12-2024 Albumin/Globulin [Mass ratio] 1.5 {ratio} 0.9-2.4 [facility] TSH DL <= 0.005 mIU/L QnOrde red By: Sergio Whalen on 09-12-2024 TSH Qn 1.410 uIU/mL 0.300-4.20 0 [facility] Thyroid Stim Hormone (TSH)on 09-12-2024 TSH 1.410 uIU/mL Normal 0.300-4.20 0 [facility] Comment on above: Performed By: #### L 501.2450, L501.9520, L500.4050, L501.2300, L100.0100 ####[facility] [address] [place], [place], [address] Abdomen/Pelvis W IV Cont ONL Yon 09-11-2024 Abdomen/Pelvis W IV Cont ONLY Normal [facility] Absolute lymphocyte countOrd ered By: Gage Sharma on 09-11-2024 Lymphocytes Auto (Unsp spec) [#/Vol] 0.49 10*3/uL Low 0.83-4.51 [facility] Anion gap in Serum or Plasma Ordered By: Gage Sharma on 09-11-2024 Anion gap [Moles/Vol] 15 mmol/L 5-15 [facility] Automated blood erythrocyte countOrdered By: Gage Sharma on 09-11-2024 RBC (Bld) [#/Vol] 4.45 10*6/uL Normal 4.2-5.4 [facility] Comment on above: Performed By: #### L 503.6005, L500.3400, L100.0100, L500.2500, L501.2450 ####[facility] [id number] [place], [place], [id number] Automated blood hematocrit ( percentage)Ordered By: Gage Sharma on 09-11-2024 Hematocrit (Bld) [Volume fraction] 42.0 % Normal 37-47 [facility] Comment on above: Performed By: #### L 503.6005, L500.3400, L100.0100, L500.2500, L501.2450 ####[facility] [id number] [place], [place], [id number] Automated lymphocyte count a s percentage of total leukocytesOrdered By: Gage Sharma on 09-11-2024 Lymphocytes/100 WBC Auto (Unsp spec) 3.6 % Low 19-41 [facility] BUN/creatinine ratioOrdered By: Gage Sharam on 09-11-2024 Urea nitrogen/Creatinine [Mass ratio] 24.2 mg/mg High 10-20 [facility] Basic Metabolic Profile (BMP )on 09-11-2024 BUN/CRE 24.2 RATIO High 10-20 [facility] Comment on above: Performed By: #### L 503.6005, L500.3400, L100.0100, L500.2500, L501.2450 ####[facility] [address] [place], [address] ECRCL 80.51 ml/min Normal 50-250 [facility] Comment on above: Performed By: #### L 503.6005, L500.3400, L100.0100, L500.2500, L501.2450 ####[facility] [address] [place], [address] GAP 15 Normal 5-15 [facility] Comment on above: Performed By: #### L 503.6005, L500.3400, L100.0100, L500.2500, L501.2450 ####[facility] [address] [place], [address] Potassium [Moles/Vol] 4.1 mmol/L Normal 3.3-5.1 [facility] Comment on above: Performed By: #### L 503.6005, L500.3400, L100.0100, L500.2500, L501.2450 ####[facility] [address] [place], [address] Basophil percentageOrdered B y: Gage Sharma on 09-11-2024 Basophils/100 WBC (Bld) 0.3 % Normal 0-1 [facility] Comment on above: Performed By: #### L 503.6005, L500.3400, L100.0100, L500.2500, L501.2450 ####[facility] [address] [place], [address] Bilirubin Test strip Ql (U)O rdered By: Gage Sharma on 09-11-2024 Bilirubin Ql (U) Negative Negative [facility] Bilirubin directOrdered By: Gage Sharma on 09-11-2024 Bilirubin.direct [Mass/Vol] 0.50 mg/dL High 0.00-0.30 [facility] Comment on above: Performed By: #### L 503.6005, L500.3400, L100.0100, L500.2500, L501.2450 ####[facility] [address] [place], [address] Bilirubin, totalOrdered By: Gage Sharma on 09-11-2024 Bilirubin [Mass/Vol] 0.97 mg/dL Normal 0.00-1.30 [facility] Comment on above: Performed By: #### L 503.6005, L500.3400, L100.0100, L500.2500, L501.2450 ####[facility] [address] [place], [address] CBC W/Diff, Automatedon 07-0 Absolute Lymph 0.49 X10 3/uL Low 0.83-4.51 [facility] Comment on above: Performed By: #### L 503.6005, L500.3400, L100.0100, L500.2500, L501.2450 ####[facility] [address] [place], [address] Absolute Neut 13.0 X10 3/uL High 2.0-7.7 [facility] Comment on above: Performed By: #### L 503.6005, L500.3400, L100.0100, L500.2500, L501.2450 ####[facility] [address] [place], [address] IG% 0.600 Normal 0.0-0.9 [facility] Comment on above: Result Comment: IG% - Immature Granulocytes (promyelocytes, myelocytes andmetamyelocytes) > 1% indicates that a LEFT SHIFT is Present. Performed By: #### L 503.6005, L500.3400, L100.0100, L500.2500, L501.2450 ####[facility] [address] [place], [address] Lymphocytes/100 WBC (Bld) 3.6 % Low 19-41 [facility] Comment on above: Performed By: #### L 503.6005, L500.3400, L100.0100, L500.2500, L501.2450 ####[facility] [address] [place], [address] MCHC (RBC) [Mass/Vol] 32.9 g/dL Normal 32-36 [facility] Comment on above: Performed By: #### L 503.6005, L500.3400, L100.0100, L500.2500, L501.2450 ####[facility] [address] [place], [address] Nucleated RBC (Bld) [#/Vol] 0 10*3/uL Normal 0-5 [facility] Comment on above: Performed By: #### L 503.6005, L500.3400, L100.0100, L500.2500, L501.2450 ####[facility] [address] [place], [address] Platelet mean volume (Bld) [Entitic vol] 10.2 fL Normal 6.2-12.0 [facility] Comment on above: Performed By: #### L 503.6005, L500.3400, L100.0100, L500.2500, L501.2450 ####[facility] [address] [place], [address] RDW SD 49.9 fl High 35.1-43.9 [facility] Comment on above: Performed By: #### L 503.6005, L500.3400, L100.0100, L500.2500, L501.2450 ####[facility] [address] [place], [address] Absolute Lymph 0.51 X10 3/uL Low 0.83-4.51 [facility] Comment on above: Performed By: #### L 100.0100, L500.4050, L501.2450 ####[facility] [address] [place], [address] Absolute Neut 14.0 X10 3/uL High 2.0-7.7 [facility] Comment on above: Performed By: #### L 100.0100, L500.4050, L501.2450 ####[facility] [address] [place], [address] Basophils/100 WBC (Bld) 0.4 % Normal 0-1 [facility] Comment on above: Performed By: #### L 100.0100, L500.4050, L501.2450 ####[facility] [address] [place], [address] Erythrocyte distribution width (RBC) [Ratio] 14.5 % Normal 11.6-14.6 [facility] Comment on above: Performed By: #### L 100.0100, L500.4050, L501.2450 ####[facility] [address] [place], [address] Hematocrit (Bld) [Volume fraction] 43.2 % Normal 37-47 [facility] Comment on above: Performed By: #### L 100.0100, L500.4050, L501.2450 ####[facility] [address] [place], [address] Hemoglobin (Bld) [Mass/Vol] 14.1 g/dL Normal 12.0-15.0 [facility] Comment on above: Performed By: #### L 100.0100, L500.4050, L501.2450 ####[facility] [address] [place], [address] IG% 0.500 Normal 0.0-0.9 [facility] Comment on above: Result Comment: IG% - Immature Granulocytes (promyelocytes, myelocytes andmetamyelocytes) > 1% indicates that a LEFT SHIFT is Present. Performed By: #### L 100.0100, L500.4050, L501.2450 ####[facility] [address] [place], [address] Lymphocytes/100 WBC (Bld) 3.5 % Low 19-41 [facility] Comment on above: Performed By: #### L 100.0100, L500.4050, L501.2450 ####[facility] [address] [place], [address] MCH (RBC) [Entitic mass] 30.7 pg Normal 27.0-32.0 [facility] Comment on above: Performed By: #### L 100.0100, L500.4050, L501.2450 ####[facility] [address] [place], [address] MCHC (RBC) [Mass/Vol] 32.6 g/dL Normal 32-36 [facility] Comment on above: Performed By: #### L 100.0100, L500.4050, L501.2450 ####[facility] [address] [place], [address] MCV (RBC) [Entitic vol] 93.9 fL Normal 81-99 [facility] Comment on above: Performed By: #### L 100.0100, L500.4050, L501.2450 ####[facility] [address] [place], [address] Neutrophils/100 WBC (Bld) 94.8 % High 47-70 [facility] Comment on above: Performed By: #### L 100.0100, L500.4050, L501.2450 ####[facility] [address] [place], [address] Nucleated RBC (Bld) [#/Vol] 0 10*3/uL Normal 0-5 [facility] Comment on above: Performed By: #### L 100.0100, L500.4050, L501.2450 ####[facility] [address] [place], [address] Platelet mean volume (Bld) [Entitic vol] 11.1 fL Normal 6.2-12.0 [facility] Comment on above: Performed By: #### L 100.0100, L500.4050, L501.2450 ####[facility] [address] [place], [address] Platelets (Bld) [#/Vol] 338 10*3/uL Normal 150-450 [facility] Comment on above: Performed By: #### L 100.0100, L500.4050, L501.2450 ####[facility] [address] [place], [address] RBC (Bld) [#/Vol] 4.60 10*6/uL Normal 4.2-5.4 [facility] Comment on above: Performed By: #### L 100.0100, L500.4050, L501.2450 ####[facility] [address] [place], [address] RDW SD 49.7 fl High 35.1-43.9 [facility] Comment on above: Performed By: #### L 100.0100, L500.4050, L501.2450 ####[facility] [address] [place], [address] WBC (Bld) [#/Vol] 14.8 10*3/uL High 4.4-11.0 [facility] Comment on above: Performed By: #### L 100.0100, L500.4050, L501.2450 ####[facility] [address] [place], [address] Carbon dioxide, total [Moles /volume] in Central venous bloodOrdered By: Gage Sharma on 09-11-2024 CO2 [Moles/Vol] 17.8 mmol/L Low 21.0-32.0 [facility] Comment on above: Performed By: #### L 503.6005, L500.3400, L100.0100, L500.2500, L501.2450 ####[facility] [address] [place], [address] Chloride assayOrdered By: Jose Maria Sharma on 09-11-2024 Chloride [Moles/Vol] 105 mmol/L Normal 98-108 [facility] Comment on above: Performed By: #### L 503.6005, L500.3400, L100.0100, L500.2500, L501.2450 ####[facility] [address] [place], [address] Comprehensive Metabolic Prof ilon 09-11-2024 Albumin/Globulin [Mass ratio] 1.4 {ratio} Normal 0.9-2.4 [facility] Comment on above: Performed By: #### L 100.0100, L500.4050, L501.2450 ####[facility] [address] [place], [address] ALK PHOS 164 U/L High 35-104 [facility] Comment on above: Performed By: #### L 100.0100, L500.4050, L501.2450 ####[facility] [address] [place], [address] ALT [Catalytic activity/Vol] 24 U/L Normal <=34 [facility] Comment on above: Performed By: #### L 100.0100, L500.4050, L501.2450 ####[facility] [address] [place], [address] AST [Catalytic activity/Vol] 27 U/L Normal <=31 [facility] Comment on above: Result Comment: Hemo lysis present, Results??could be affected.?? Performed By: #### L 100.0100, L500.4050, L501.2450 ####[facility] [address] [place], [address] Bilirubin [Mass/Vol] 0.87 mg/dL Normal 0.00-1.30 [facility] Comment on above: Performed By: #### L 100.0100, L500.4050, L501.2450 ####[facility] [address] [place], [address] BUN/CRE 20.4 RATIO High 10-20 [facility] Comment on above: Performed By: #### L 100.0100, L500.4050, L501.2450 ####[facility] [address] [place], [address] Calcium [Mass/Vol] 9.7 mg/dL Normal 7.6-11.0 [facility] Comment on above: Performed By: #### L 100.0100, L500.4050, L501.2450 ####[facility] [address] [place], [address] Chloride [Moles/Vol] 104 mmol/L Normal 98-108 [facility] Comment on above: Performed By: #### L 100.0100, L500.4050, L501.2450 ####[facility] [address] [place], [address] CO2 [Moles/Vol] 18.9 mmol/L Low 21.0-32.0 [facility] Comment on above: Performed By: #### L 100.0100, L500.4050, L501.2450 ####[facility] [address] [place], [address] Creatinine [Mass/Vol] 0.84 mg/dL Normal 0.70-1.20 [facility] Comment on above: Performed By: #### L 100.0100, L500.4050, L501.2450 ####[facility] [address] [place], [address] ECRCL 73.80 ml/min Normal 50-250 [facility] Comment on above: Performed By: #### L 100.0100, L500.4050, L501.2450 ####[facility] [address] [place], [address] GAP 14 Normal 5-15 [facility] Comment on above: Performed By: #### L 100.0100, L500.4050, L501.2450 ####[facility] [address] [place], [address] GFR/1.73 sq M.predicted among non-blacks MDRD (S/P/Bld) [Vol rate/Area] 88 mL/min/{1.73_m2} Normal >60 [facility] Comment on above: Result Comment: mL/m in/1.73m2 CKD-EPI Creatinine Equation (2020) Performed By: #### L 100.0100, L500.4050, L501.2450 ####[facility] [address] [place], [address] Globulin (S) [Mass/Vol] 3.1 g/dL Normal 2.2-4.2 [facility] Comment on above: Performed By: #### L 100.0100, L500.4050, L501.2450 ####[facility] [address] [place], [address] Glucose [Mass/Vol] 107 mg/dL High 70-99 [facility] Comment on above: Performed By: #### L 100.0100, L500.4050, L501.2450 ####[facility] [address] [place], [address] Potassium [Moles/Vol] 4.2 mmol/L Normal 3.3-5.1 [facility] Comment on above: Result Comment: Hemo lysis present, Results??could be affected.?? Performed By: #### L 100.0100, L500.4050, L501.2450 ####[facility] [address] [place], [address] Sodium [Moles/Vol] 137 mmol/L Normal 133-145 [facility] Comment on above: Performed By: #### L 100.0100, L500.4050, L501.2450 ####[facility] [address] [place], [address] T PROT 7.5 g/dL Normal 5.9-8.4 [facility] Comment on above: Performed By: #### L 100.0100, L500.4050, L501.2450 ####[facility] [address] [place], [address] Urea nitrogen [Mass/Vol] 17 mg/dL Normal 4-19 [facility] Comment on above: Performed By: #### L 100.0100, L500.4050, L501.2450 ####[facility] [address] [place], [address] Emergency Department Summary on 09-11-2024 Emergency Department Summary Normal [facility] Eosinophil percentageOrdered By: Gage Sharma on 09-11-2024 Eosinophils/100 WBC (Bld) 0.1 % Normal 0-5 [facility] Comment on above: Performed By: #### L 503.6005, L500.3400, L100.0100, L500.2500, L501.2450 ####[facility] [address] [place], [address] Performed By: #### L 100.0100, L500.4050, L501.2450 ####[facility] [address] [place], [address] Erythrocyte distribution wid th ratioOrdered By: Gage Sharma on 09-11-2024 Erythrocyte distribution width (RBC) [Ratio] 14.6 % Normal 11.6-14.6 [facility] Comment on above: Performed By: #### L 503.6005, L500.3400, L100.0100, L500.2500, L501.2450 ####[facility] [address] [place], [address] Erythrocyte distribution wid th standard deviationOrdered By: Gage Batista on 09-11-2024 Erythrocyte distribution width (RBC) [Ratio] 49.9 fl High 35.1-43.9 [facility] Glomerular filtration rate ( GFR) estimation/1.73 sq m using serum, plasma, or whole bOrdered By: Gage Sharma on 09-11-2024 GFR/1.73 sq M.predicted among non-blacks MDRD (S/P/Bld) [Vol rate/Area] 97 mL/min/{1.73_m2} Normal >60 [facility] Comment on above: Result Comment: mL/m in/1.73m2 CKD-EPI Creatinine Equation (2020) Performed By: #### L 503.6005, L500.3400, L100.0100, L500.2500, L501.2450 ####[facility] [address] [place], [address] H AND P Exam - Hospitaliston 09-11-2024 H&P Exam - Hospitalist Normal [facility] Hemoglobin measurementOrdere d By: Gage HortoncindiLynne on 09-11-2024 Hemoglobin (Bld) [Mass/Vol] 13.8 g/dL Normal 12.0-15.0 [facility] Comment on above: Performed By: #### L 503.6005, L500.3400, L100.0100, L500.2500, L501.2450 ####[facility] [address] [place], [address] Immature granulocytes/100 WB C Auto (Bld)Ordered By: [facility] on 09-11-2024 Immature granulocytes/100 WBC (Bld) 0.600 % 0.0-0.9 [facility] Ketones Test strip Ql (U)Ord ered By: [facility] on 09-11-2024 Ketones Ql (U) Negative Negative [facility] Lactic Acidon 09-11-2024 Lactate [Moles/Vol] 1.6 mmol/L Normal 0.0-2.0 [facility] Comment on above: Order Comment: Y Performed By: #### L 503.6005, L500.3400, L100.0100, L500.2500, L501.2450 ####[facility] [address] [place], [address] Lipaseon 09-11-2024 Lipase [Catalytic activity/Vol] 113 U/L High 13-75 [facility] Comment on above: Result Comment: Liam rader note:LIPASE revised reference range effective 22.New Lipase methodology. Expected to produce lower valuesthan the previous assay method.NEW Reference Range: 13 - 75 U/L Performed By: #### L 503.6005, L500.3400, L100.0100, L500.2500, L501.2450 ####[facility] [address] [place], [address] Lipase [Catalytic activity/Vol] 112 U/L High 13-75 [facility] Comment on above: Result Comment: Liam rader note:LIPASE revised reference range effective 22.New Lipase methodology. Expected to produce lower valuesthan the previous assay method.NEW Reference Range: 13 - 75 U/L Performed By: #### L 100.0100, L500.4050, L501.2450 ####[facility] [address] [place], [address] Liver Profileon 09-11-2024 ALK PHOS 163 U/L High 35-104 [facility] Comment on above: Performed By: #### L 503.6005, L500.3400, L100.0100, L500.2500, L501.2450 ####[facility] [address] [place], [address] AST [Catalytic activity/Vol] 23 U/L Normal <=31 [facility] Comment on above: Performed By: #### L 503.6005, L500.3400, L100.0100, L500.2500, L501.2450 ####[facility] [address] [place], [address] T PROT 7.4 g/dL Normal 5.9-8.4 [facility] Comment on above: Performed By: #### L 503.6005, L500.3400, L100.0100, L500.2500, L501.2450 ####[facility] [address] [place], [address] MCV (mean corpuscular volume ) determinationOrdered By: Gage Sharma on 09-11-2024 MCV (RBC) [Entitic vol] 94.4 fL Normal 81-99 [facility] Comment on above: Performed By: #### L 503.6005, L500.3400, L100.0100, L500.2500, L501.2450 ####[facility] [address] [place], [address] Magnesium measurement (mass/ volume)Ordered By: Sergio Whalen on 09-11-2024 Magnesium (Unsp spec) [Mass/Vol] 1.8 mg/dL 1.5-2.2 [facility] Mean corpuscular hemoglobin (MCH) determinationOrdered By: Gage Sharma on 09-11-2024 MCH (RBC) [Entitic mass] 31.0 pg Normal 27.0-32.0 [facility] Comment on above: Performed By: #### L 503.6005, L500.3400, L100.0100, L500.2500, L501.2450 ####[facility] [address] [place], [address] Monocyte percentageOrdered B y: Gage Sharma on 09-11-2024 Monocytes/100 WBC (Bld) 0.7 % Normal 0-10 [facility] Comment on above: Performed By: #### L 503.6005, L500.3400, L100.0100, L500.2500, L501.2450 ####[facility] [address] [place], [address] Performed By: #### L 100.0100, L500.4050, L501.2450 ####[facility] [address] [place], [address] Mucus LM Ql (Urine sed)Order ed By: Gage Sharma on 09-11-2024 Mucus Ql (Urine sed) 0 SEEN /hpf [facility] Neutrophil percentageOrdered By: Gage Sharma on 09-11-2024 Neutrophils/100 WBC (Bld) 94.7 % High 47-70 [facility] Comment on above: Performed By: #### L 503.6005, L500.3400, L100.0100, L500.2500, L501.2450 ####[facility] [address] [place], [address] Nitrite Test strip Ql (U)Ord ered By: Gage Sharma on 09-11-2024 Nitrite Ql (U) Negative Negative [facility] No Panel InformationOrdered By: Gage Sharma on 09-11-2024 23 U/L <32 [facility] Platelet countOrdered By: Jose Maria Sharma on 09-11-2024 Platelets (Bld) [#/Vol] 349 10*3/uL Normal 150-450 [facility] Comment on above: Performed By: #### L 503.6005, L500.3400, L100.0100, L500.2500, L501.2450 ####[facility] [address] [place], [address] Potassium measurement (mass/ volume)Ordered By: Gage Sharma on 09-11-2024 Potassium (Unsp spec) [Mass/Vol] 4.1 mmol/L 3.3-5.1 [facility] ,Serum,hCG Quali.on 09-11-2024 HCG, SERUM QUAL Negative Normal [facility] Comment on above: Performed By: #### L 700.6800 ####[facility] [address] [place], [address] Protein Test strip Ql (U)Ord ered By: Gage Sharma on 09-11-2024 Protein Ql (U) 100 mg/dl High Negative [facility] Serum beta-hCG test, qualita tiveOrdered By: Gage Sharma on 09-11-2024 Beta HCG ( test) Ql Negative [facility] Serum creatinine measurement (mass/volume)Ordered By: Gage Sharma on 09-11-2024 Creatinine [Mass/Vol] 0.77 mg/dL Normal 0.70-1.20 [facility] Comment on above: Performed By: #### L 503.6005, L500.3400, L100.0100, L500.2500, L501.2450 ####[facility] [address] [place], [address] Serum globulin measurementOr dered By: Gage Sharma on 09-11-2024 Globulin (S) [Mass/Vol] 3.0 g/dL Normal 2.2-4.2 [facility] Comment on above: Performed By: #### L 503.6005, L500.3400, L100.0100, L500.2500, L501.2450 ####[facility] [address] [place], [address] Serum glucose measurement (m ass/volume)Ordered By: Gage Sharma on 09-11-2024 Glucose [Mass/Vol] 132 mg/dL High 70-99 [facility] Comment on above: Performed By: #### L 503.6005, L500.3400, L100.0100, L500.2500, L501.2450 ####[facility] [address] [place], [address] Serum or plasma alanine hair otransferase (ALT) measurementOrdered By: Gage Sharma on 09-11-2024 ALT [Catalytic activity/Vol] 17 U/L Normal <=34 [facility] Comment on above: Performed By: #### L 503.6005, L500.3400, L100.0100, L500.2500, L501.2450 ####[facility] [address] [facility] [place], [place], [address] Serum or plasma albumin leslie urement (mass/volume)Ordered By: Gage Batista on 09-11-2024 Albumin [Mass/Vol] 4.4 g/dL Normal 3.5-5.0 [facility] Comment on above: Performed By: #### L 503.6005, L500.3400, L100.0100, L500.2500, L501.2450 ####[facility] [address] [facility], [address] Performed By: #### L 100.0100, L500.4050, L501.2450 ####[facility] [address] [place], [address] Serum or plasma albumin/glob ulin mass ratioOrdered By: ED PROVIDER on 09-11-2024 Albumin/Globulin [Mass ratio] 1.4 {ratio} 0.9-2.4 [facility] Serum or plasma alkaline delfin sphatase measurementOrdered By: Gage Sharma on 09-11-2024 ALP [Catalytic activity/Vol] 163 U/L High 35-104 [facility] Serum or plasma calcium leslie urement (mass/volume)Ordered By: Gage Batista on 09-11-2024 Calcium [Mass/Vol] 9.4 mg/dL Normal 7.6-11.0 [facility] Comment on above: Performed By: #### L 503.6005, L500.3400, L100.0100, L500.2500, L501.2450 ####[facility] [address] [place], [address] Serum or plasma urea nitroge n measurement (mass/volume)Ordered By: Gage Sharma on 09-11-2024 Urea nitrogen [Mass/Vol] 19 mg/dL Normal 4-19 [facility] Comment on above: Performed By: #### L 503.6005, L500.3400, L100.0100, L500.2500, L501.2450 ####[facility] [address] [place], [address] Sodium levelOrdered By: Edd Sharma on 09-11-2024 Sodium [Moles/Vol] 138 mmol/L Normal 133-145 [facility] Comment on above: Performed By: #### L 503.6005, L500.3400, L100.0100, L500.2500, L501.2450 ####[facility] [address] [place], [address] Squamous epithelial cells de tection in urine sediment by light microscopyOrdered By: Gage Sharma on 09-11-2024 Epithelial cells.squamous LM Ql (Urine sed) 10-25 SEEN /hpf - [facility] Total proteinOrdered By: Zev Sharma on 09-11-2024 Protein [Mass/Vol] 7.4 g/dL 5.9-8.4 [facility] Urinalysis, Completeon 09-11 EPI,SQUAMOUS 10-25 SEEN Normal 5-10 [facility] Comment on above: Order Comment: HARITHA CTOR TO SPECIFY Performed By: #### L 400.0001 ####[facility] [address] [place], [address] RBC 0-5 SEEN Normal 0-5 [facility] Comment on above: Order Comment: HARITHA CTOR TO SPECIFY Performed By: #### L 400.0001 ####[facility] [address] [place], [address] WBC 0-5 SEEN Normal 0-5 [facility] Comment on above: Order Comment: HARITHA CTOR TO SPECIFY Performed By: #### L 400.0001 ####[facility] [address] [place], [address] BACTERIA 0 SEEN Normal None Seen [facility] Comment on above: Order Comment: HARITHA CTOR TO SPECIFY Performed By: #### L 400.0001 ####[facility] [address] [place], [address] Mucus Ql (Urine sed) 0 SEEN Normal [facility] Comment on above: Order Comment: HARITHA CTOR TO SPECIFY Performed By: #### L 400.0001 ####[facility] [address] [place], [address] Urine clarityOrdered By: Zev Sharma on 09-11-2024 Clarity (U) Sl. Cloudy Clear [facility] Urine color determinationOrd ered By: Gage Sharma on 09-11-2024 Color (U) Yellow Yellow [facility] Urine glucose detectionOrder ed By: Gage Sharma on 09-11-2024 Glucose Ql (U) Normal mg/dl Normal [facility] Urine leukocyte esterase det ection by dipstickOrdered By: Gage Sharma on 09-11-2024 Leukocyte esterase Test strip Ql (U) Negative Negative [facility] Urine pHOrdered By: Gage Keller on 09-11-2024 pH (U) 7.0 [pH] 5.0 - 8.0 [facility] Urine sediment bacteria coun t by microscopy (number/high power field)Ordered By: Gage Sharma on 09-11-2024 Bacteria LM.HPF (Urine sed) [#/Area] 0 /[HPF] None Seen [facility] Urine specific gravity measu rementOrdered By: Gage Sharma on 09-11-2024 Specific gravity (U) [Rel density] 1.010 1.002-1.03 0 [facility] Urine urobilinogen measureme ntOrdered By: Gage Sharma on 09-11-2024 Urobilinogen Ql (U) 1 mg/dl High Normal [facility] White blood cell (WBC) count Ordered By: Ggae Sharma on 09-11-2024 WBC (Bld) [#/Vol] 13.7 10*3/uL High 4.4-11.0 [facility] Comment on above: Performed By: #### L 503.6005, L500.3400, L100.0100, L500.2500, L501.2450 ####[facility] [address] [place], [address] White blood cell countOrdere d By: Gage Sharma on 09-11-2024 White blood cell count 0-5 SEEN /hpf 0-5 [facility] CBC W/Diff, Automatedon - Absolute Neut Normal 2.0-7.7 [facility] Comment on above: Result Comment: Canc elled via OM: Order cancelled - Patient discharged Performed By: #### L 100.0100 ####[facility] [address] [place], [address] HCT Normal 37-47 [facility] Comment on above: Result Comment: Canc elled via OM: Order cancelled - Patient discharged Performed By: #### L 100.0100 ####[facility] [address] [place], [address] HGB Normal 12.0-15.0 [facility] Comment on above: Result Comment: Canc elled via OM: Order cancelled - Patient discharged Performed By: #### L 100.0100 ####[facility] [address] [place], [address] MCH Normal 27.0-32.0 [facility] Comment on above: Result Comment: Canc elled via OM: Order cancelled - Patient discharged Performed By: #### L 100.0100 ####[facility] [address] [place], [address] MCHC Normal 32-36 [facility] Comment on above: Result Comment: Canc elled via OM: Order cancelled - Patient discharged Performed By: #### L 100.0100 ####[facility] [address] [place], [address] MCV Normal 81-99 [facility] Comment on above: Result Comment: Canc elled via OM: Order cancelled - Patient discharged Performed By: #### L 100.0100 ####[facility] [address] [place], [address] NEUT% Normal 47-70 [facility] Comment on above: Result Comment: Canc elled via OM: Order cancelled - Patient discharged Performed By: #### L 100.0100 ####[facility] [address] [place], [address] PLT Normal 150-450 [facility] Comment on above: Result Comment: Canc elled via OM: Order cancelled - Patient discharged Performed By: #### L 100.0100 ####[facility] [address] [place], [address] RBC Normal 4.2-5.4 [facility] Comment on above: Result Comment: Canc elled via OM: Order cancelled - Patient discharged Performed By: #### L 100.0100 ####[facility] [address] [place], [address] RDW CV Normal 11.6-14.6 [facility] Comment on above: Result Comment: Canc elled via OM: Order cancelled - Patient discharged Performed By: #### L 100.0100 ####[facility] [address] [place], [address] RDW SD Normal 35.1-43.9 [facility] Comment on above: Result Comment: Canc elled via OM: Order cancelled - Patient discharged Performed By: #### L 100.0100 ####[facility] [address] [place], [address] WBC Normal 4.4-11.0 [facility] Comment on above: Result Comment: Canc elled via OM: Order cancelled - Patient discharged Performed By: #### L 100.0100 ####[facility] [address] [place], [address] CBC W/Diff, Automatedon 06-1 Absolute Neut Normal 2.0-7.7 [facility] Comment on above: Result Comment: Canc elled via OM: Order cancelled - Patient discharged Performed By: #### L 100.0100 ####[facility] [address] [place], [address] HCT Normal 37-47 [facility] Comment on above: Result Comment: Canc elled via OM: Order cancelled - Patient discharged Performed By: #### L 100.0100 ####[facility] [address] [place], [address] HGB Normal 12.0-15.0 [facility] Comment on above: Result Comment: Canc elled via OM: Order cancelled - Patient discharged Performed By: #### L 100.0100 ####[facility] [address] [place], [address] MCH Normal 27.0-32.0 [facility] Comment on above: Result Comment: Canc elled via OM: Order cancelled - Patient discharged Performed By: #### L 100.0100 ####[facility] [address] [place], [address] MCHC Normal 32-36 [facility] Comment on above: Result Comment: Canc elled via OM: Order cancelled - Patient discharged Performed By: #### L 100.0100 ####[facility] [address] [place], [address] MCV Normal 81-99 [facility] Comment on above: Result Comment: Canc elled via OM: Order cancelled - Patient discharged Performed By: #### L 100.0100 ####[facility] [address] [place], [address] NEUT% Normal 47-70 [facility] Comment on above: Result Comment: Canc elled via OM: Order cancelled - Patient discharged Performed By: #### L 100.0100 ####[facility] [address] [place], [address] PLT Normal 150-450 [facility] Comment on above: Result Comment: Canc elled via OM: Order cancelled - Patient discharged Performed By: #### L 100.0100 ####[facility] [address] [place], [address] RBC Normal 4.2-5.4 [facility] Comment on above: Result Comment: Canc elled via OM: Order cancelled - Patient discharged Performed By: #### L 100.0100 ####[facility] [address] [place], [address] RDW CV Normal 11.6-14.6 [facility] Comment on above: Result Comment: Canc elled via OM: Order cancelled - Patient discharged Performed By: #### L 100.0100 ####[facility] [address] [place], [address] RDW SD Normal 35.1-43.9 [facility] Comment on above: Result Comment: Canc elled via OM: Order cancelled - Patient discharged Performed By: #### L 100.0100 ####[facility] [address] [place], [address] WBC Normal 4.4-11.0 [facility] Comment on above: Result Comment: Canc elled via OM: Order cancelled - Patient discharged Performed By: #### L 100.0100 ####[facility] [address] [place], [address] Gastric Emptying Studyon Gastric Emptying Study Normal [facility] CBC W/Diff, Automatedon 08-12 Absolute Neut Normal 2.0-7.7 [facility] Comment on above: Result Comment: Canc elled via OM: Order cancelled - Patient discharged Performed By: #### L 100.0100 ####[facility] [address] [place], [address] HCT Normal 37-47 [facility] Comment on above: Result Comment: Canc elled via OM: Order cancelled - Patient discharged Performed By: #### L 100.0100 ####[facility] [address] [place], [address] HGB Normal 12.0-15.0 [facility] Comment on above: Result Comment: Canc elled via OM: Order cancelled - Patient discharged Performed By: #### L 100.0100 ####[facility] [address] [place], [address] MCH Normal 27.0-32.0 [facility] Comment on above: Result Comment: Canc elled via OM: Order cancelled - Patient discharged Performed By: #### L 100.0100 ####[facility] [address] [place], [address] MCHC Normal 32-36 [facility] Comment on above: Result Comment: Canc elled via OM: Order cancelled - Patient discharged Performed By: #### L 100.0100 ####[facility] [address] [place], [address] MCV Normal 81-99 [facility] Comment on above: Result Comment: Canc elled via OM: Order cancelled - Patient discharged Performed By: #### L 100.0100 ####[facility] [address] [place], [address] NEUT% Normal 47-70 [facility] Comment on above: Result Comment: Canc elled via OM: Order cancelled - Patient discharged Performed By: #### L 100.0100 ####[facility] [address] [place], [address] PLT Normal 150-450 [facility] Comment on above: Result Comment: Canc elled via OM: Order cancelled - Patient discharged Performed By: #### L 100.0100 ####[facility] [address] [place], [address] RBC Normal 4.2-5.4 [facility] Comment on above: Result Comment: Canc elled via OM: Order cancelled - Patient discharged Performed By: #### L 100.0100 ####[facility] [address] [place], [address] RDW CV Normal 11.6-14.6 [facility] Comment on above: Result Comment: Canc elled via OM: Order cancelled - Patient discharged Performed By: #### L 100.0100 ####[facility] [address] [place], [address] RDW SD Normal 35.1-43.9 [facility] Comment on above: Result Comment: Canc elled via OM: Order cancelled - Patient discharged Performed By: #### L 100.0100 ####[facility] [address] [place], [address] WBC Normal 4.4-11.0 [facility] Comment on above: Result Comment: Canc elled via OM: Order cancelled - Patient discharged Performed By: #### L 100.0100 ####[facility] [address] [place], [address] MRCP Abdomen without Contras ton 08-27-2024 MRCP Abdomen without Contrast Normal [facility] CBC W/Diff, Automatedon 08-12 Absolute Neut Normal 2.0-7.7 [facility] Comment on above: Result Comment: Canc elled via OM: Order cancelled - Patient discharged Performed By: #### L 100.0100, L500.4050 ####[facility] [address] [place], [address] HCT Normal 37-47 [facility] Comment on above: Result Comment: Canc elled via OM: Order cancelled - Patient discharged Performed By: #### L 100.0100, L500.4050 ####[facility] [address] [place], [address] HGB Normal 12.0-15.0 [facility] Comment on above: Result Comment: Canc elled via OM: Order cancelled - Patient discharged Performed By: #### L 100.0100, L500.4050 ####[facility] [address] [facility] [place], [address] MCH Normal 27.0-32.0 [facility] Comment on above: Result Comment: Canc elled via OM: Order cancelled - Patient discharged Performed By: #### L 100.0100, L500.4050 ####[facility] [address] [place], [address] MCHC Normal 32-36 [facility] Comment on above: Result Comment: Canc elled via OM: Order cancelled - Patient discharged Performed By: #### L 100.0100, L500.4050 ####[facility] [address] [place], [address] MCV Normal 81-99 [facility] Comment on above: Result Comment: Canc elled via OM: Order cancelled - Patient discharged Performed By: #### L 100.0100, L500.4050 ####[facility] [address] [place], [address] NEUT% Normal 47-70 [facility] Comment on above: Result Comment: Canc elled via OM: Order cancelled - Patient discharged Performed By: #### L 100.0100, L500.4050 ####[facility] [address] [place], [address] PLT Normal 150-450 [facility] Comment on above: Result Comment: Canc elled via OM: Order cancelled - Patient discharged Performed By: #### L 100.0100, L500.4050 ####[facility] [address] [place], [address] RBC Normal 4.2-5.4 [facility] Comment on above: Result Comment: Canc elled via OM: Order cancelled - Patient discharged Performed By: #### L 100.0100, L500.4050 ####[facility] [address] [place], [address] RDW CV Normal 11.6-14.6 [facility] Comment on above: Result Comment: Canc elled via OM: Order cancelled - Patient discharged Performed By: #### L 100.0100, L500.4050 ####[facility] [address] [place], [address] RDW SD Normal 35.1-43.9 [facility] Comment on above: Result Comment: Canc elled via OM: Order cancelled - Patient discharged Performed By: #### L 100.0100, L500.4050 ####[facility] [address] [place], [address] WBC Normal 4.4-11.0 [facility] Comment on above: Result Comment: Canc elled via OM: Order cancelled - Patient discharged Performed By: #### L 100.0100, L500.4050 ####[facility] [address] [place], [address] Comprehensive Metabolic Prof njon 08-26-2024 ALB Normal 3.5-5.0 [facility] Comment on above: Result Comment: Canc elled via OM: Order cancelled - Patient discharged Performed By: #### L 100.0100, L500.4050 ####[facility] [address] [place], [address] ALK PHOS Normal 35-104 [facility] Comment on above: Result Comment: Canc elled via OM: Order cancelled - Patient discharged Performed By: #### L 100.0100, L500.4050 ####[facility] [address] [place], [address] ALT Normal <=34 [facility] Comment on above: Result Comment: Canc elled via OM: Order cancelled - Patient discharged Performed By: #### L 100.0100, L500.4050 ####[facility] [address] [place], [address] AST Normal <=31 [facility] Comment on above: Result Comment: Canc elled via OM: Order cancelled - Patient discharged Performed By: #### L 100.0100, L500.4050 ####[facility] [address] [place], [address] BUN Normal 4-19 [facility] Comment on above: Result Comment: Canc elled via OM: Order cancelled - Patient discharged Performed By: #### L 100.0100, L500.4050 ####[facility] [address] [place], [address] BUN/CRE Normal 10-20 [facility] Comment on above: Result Comment: Canc elled via OM: Order cancelled - Patient discharged Performed By: #### L 100.0100, L500.4050 ####[facility] [address] [place], [address] Calcium Normal 7.6-11.0 [facility] Comment on above: Result Comment: Canc elled via OM: Order cancelled - Patient discharged Performed By: #### L 100.0100, L500.4050 ####[facility] [address] [place], [address] CL Normal 98-108 [facility] Comment on above: Result Comment: Canc elled via OM: Order cancelled - Patient discharged Performed By: #### L 100.0100, L500.4050 ####[facility] [address] [place], [address] CO2 Normal 21.0-32.0 [facility] Comment on above: Result Comment: Canc elled via OM: Order cancelled - Patient discharged Performed By: #### L 100.0100, L500.4050 ####[facility] [address] [place], [address] CREAT,SERUM Normal 0.70-1.20 [facility] Comment on above: Result Comment: Canc elled via OM: Order cancelled - Patient discharged Performed By: #### L 100.0100, L500.4050 ####[facility] [address] [place], [address] eGFR Normal >60 [facility] Comment on above: Result Comment: Canc elled via OM: Order cancelled - Patient discharged Performed By: #### L 100.0100, L500.4050 ####[facility] [address] [place], [address] GAP Normal 5-15 [facility] Comment on above: Result Comment: Canc elled via OM: Order cancelled - Patient discharged Performed By: #### L 100.0100, L500.4050 ####[facility] [address] [place], [address] GLU Normal 70-99 [facility] Comment on above: Result Comment: Canc elled via OM: Order cancelled - Patient discharged Performed By: #### L 100.0100, L500.4050 ####[facility] [address] [place], [address] Potassium Normal 3.3-5.1 [facility] Comment on above: Result Comment: Canc elled via OM: Order cancelled - Patient discharged Performed By: #### L 100.0100, L500.4050 ####[facility] [address] [place], [address] T BILI Normal 0.00-1.30 [facility] Comment on above: Result Comment: Canc elled via OM: Order cancelled - Patient discharged Performed By: #### L 100.0100, L500.4050 ####[facility] [address] [place], [address] T PROT Normal 5.9-8.4 [facility] Comment on above: Result Comment: Canc elled via OM: Order cancelled - Patient discharged Performed By: #### L 100.0100, L500.4050 ####[facility] [address] [place], [address] Comprehensive Metabolic Profil Normal 133-145 [facility] Comment on above: Result Comment: Canc elled via OM: Order cancelled - Patient discharged Performed By: #### L 100.0100, L500.4050 ####[facility] [address] [place], [address] CBC W/Diff, Automatedon 06- Absolute Neut Normal 2.0-7.7 [facility] Comment on above: Result Comment: Canc elled via OM: Order cancelled - Patient discharged Performed By: #### L 100.0100, L500.4050 ####[facility] [address] [place], [address] HCT Normal 37-47 [facility] Comment on above: Result Comment: Canc elled via OM: Order cancelled - Patient discharged Performed By: #### L 100.0100, L500.4050 ####[facility] [address] [place], [address] HGB Normal 12.0-15.0 [facility] Comment on above: Result Comment: Canc elled via OM: Order cancelled - Patient discharged Performed By: #### L 100.0100, L500.4050 ####[facility] [address] [place], [address] MCH Normal 27.0-32.0 [facility] Comment on above: Result Comment: Canc elled via OM: Order cancelled - Patient discharged Performed By: #### L 100.0100, L500.4050 ####[facility] [address] [place], [address] MCHC Normal 32-36 [facility] Comment on above: Result Comment: Canc elled via OM: Order cancelled - Patient discharged Performed By: #### L 100.0100, L500.4050 ####[facility] [address] [place], [address] MCV Normal 81-99 [facility] Comment on above: Result Comment: Canc elled via OM: Order cancelled - Patient discharged Performed By: #### L 100.0100, L500.4050 ####[facility] [address] [place], [address] NEUT% Normal 47-70 [facility] Comment on above: Result Comment: Canc elled via OM: Order cancelled - Patient discharged Performed By: #### L 100.0100, L500.4050 ####[facility] [address] [place], [address] PLT Normal 150-450 [facility] Comment on above: Result Comment: Canc elled via OM: Order cancelled - Patient discharged Performed By: #### L 100.0100, L500.4050 ####[facility] [address] [place], [address] RBC Normal 4.2-5.4 [facility] Comment on above: Result Comment: Canc elled via OM: Order cancelled - Patient discharged Performed By: #### L 100.0100, L500.4050 ####[facility] [address] [place], [address] RDW CV Normal 11.6-14.6 [facility] Comment on above: Result Comment: Canc elled via OM: Order cancelled - Patient discharged Performed By: #### L 100.0100, L500.4050 ####[facility] [address] [place], [address] RDW SD Normal 35.1-43.9 [facility] Comment on above: Result Comment: Canc elled via OM: Order cancelled - Patient discharged Performed By: #### L 100.0100, L500.4050 ####[facility] [address] [place], [address] WBC Normal 4.4-11.0 [facility] Comment on above: Result Comment: Canc elled via OM: Order cancelled - Patient discharged Performed By: #### L 100.0100, L500.4050 ####[facility] [address] [place], [address] Comprehensive Metabolic Prof ilon 08-25-2024 ALB Normal 3.5-5.0 [facility] Comment on above: Result Comment: Canc elled via OM: Order cancelled - Patient discharged Performed By: #### L 100.0100, L500.4050 ####[facility] [address] [place], [address] ALK PHOS Normal 35-104 [facility] Comment on above: Result Comment: Canc elled via OM: Order cancelled - Patient discharged Performed By: #### L 100.0100, L500.4050 ####[facility] [address] [place], [address] ALT Normal <=34 [facility] Comment on above: Result Comment: Canc elled via OM: Order cancelled - Patient discharged Performed By: #### L 100.0100, L500.4050 ####[facility] [address] [place], [address] AST Normal <=31 [facility] Comment on above: Result Comment: Canc elled via OM: Order cancelled - Patient discharged Performed By: #### L 100.0100, L500.4050 ####[facility] [address] [place], [address] BUN Normal 4-19 [facility] Comment on above: Result Comment: Canc elled via OM: Order cancelled - Patient discharged Performed By: #### L 100.0100, L500.4050 ####[facility] [address] [place], [address] BUN/CRE Normal 10-20 [facility] Comment on above: Result Comment: Canc elled via OM: Order cancelled - Patient discharged Performed By: #### L 100.0100, L500.4050 ####[facility] [address] [place], [address] Calcium Normal 7.6-11.0 [facility] Comment on above: Result Comment: Canc elled via OM: Order cancelled - Patient discharged Performed By: #### L 100.0100, L500.4050 ####[facility] [address] [place], [address] CL Normal 98-108 [facility] Comment on above: Result Comment: Canc elled via OM: Order cancelled - Patient discharged Performed By: #### L 100.0100, L500.4050 ####[facility] [address] [place], [address] CO2 Normal 21.0-32.0 [facility] Comment on above: Result Comment: Canc elled via OM: Order cancelled - Patient discharged Performed By: #### L 100.0100, L500.4050 ####[facility] [address] [place], [address] CREAT,SERUM Normal 0.70-1.20 [facility] Comment on above: Result Comment: Canc elled via OM: Order cancelled - Patient discharged Performed By: #### L 100.0100, L500.4050 ####[facility] [address] [place], [address] eGFR Normal >60 [facility] Comment on above: Result Comment: Canc elled via OM: Order cancelled - Patient discharged Performed By: #### L 100.0100, L500.4050 ####[facility] [address] [place], [address] GAP Normal 5-15 [facility] Comment on above: Result Comment: Canc elled via OM: Order cancelled - Patient discharged Performed By: #### L 100.0100, L500.4050 ####[facility] [address] [place], [address] GLU Normal 70-99 [facility] Comment on above: Result Comment: Canc elled via OM: Order cancelled - Patient discharged Performed By: #### L 100.0100, L500.4050 ####[facility] [address] [place], [address] Potassium Normal 3.3-5.1 [facility] Comment on above: Result Comment: Canc elled via OM: Order cancelled - Patient discharged Performed By: #### L 100.0100, L500.4050 ####[facility] [address] [place], [address] T BILI Normal 0.00-1.30 [facility] Comment on above: Result Comment: Canc elled via OM: Order cancelled - Patient discharged Performed By: #### L 100.0100, L500.4050 ####[facility] [address] [place], [address] T PROT Normal 5.9-8.4 [facility] Comment on above: Result Comment: Canc elled via OM: Order cancelled - Patient discharged Performed By: #### L 100.0100, L500.4050 ####[facility] [address] [place], [address] Comprehensive Metabolic Profil Normal 133-145 [facility] Comment on above: Result Comment: Canc elled via OM: Order cancelled - Patient discharged Performed By: #### L 100.0100, L500.4050 ####[facility] [address] [place], [address] Absolute lymphocyte countOrd ered By: Taylor Tejeda on 08-24-2024 Lymphocytes Auto (Unsp spec) [#/Vol] 1.18 10*3/uL 0.83-4.51 [facility] Anion gap in Serum or Plasma Ordered By: Taylor Poemelly on 08-24-2024 Anion gap [Moles/Vol] 12 mmol/L 5-15 [facility] Automated lymphocyte count a s percentage of total leukocytesOrdered By: Taylor Ileana on 08-24-2024 Lymphocytes/100 WBC Auto (Unsp spec) 14.1 % Low 19-41 [facility] BUN/creatinine ratioOrdered By: Taylorleonides Tejeda on 08-24-2024 Urea nitrogen/Creatinine [Mass ratio] 10.5 mg/mg 10-20 [facility] Basophil percentageOrdered B y: Taylor Ileana on 08-24-2024 Basophils/100 WBC (Bld) 0.5 % 0-1 [facility] Bilirubin, totalOrdered By: Taylorleonides Tejeda on 08-24-2024 Bilirubin [Mass/Vol] 0.32 mg/dL 0.00-1.30 [facility] CBC W/Diff, Automatedon 08-12 Absolute Lymph 1.18 X10 3/uL Normal 0.83-4.51 [facility] Comment on above: Performed By: #### L 500.4050, L100.0100 ####[facility] [address] [place], [address] Absolute Neut 6.4 X10 3/uL Normal 2.0-7.7 [facility] Comment on above: Performed By: #### L 500.4050, L100.0100 ####[facility] [address] [place], [address] Basophils/100 WBC (Bld) 0.5 % Normal 0-1 [facility] Comment on above: Performed By: #### L 500.4050, L100.0100 ####[facility] [address] [place], [address] Eosinophils/100 WBC (Bld) 2.2 % Normal 0-5 [facility] Comment on above: Performed By: #### L 500.4050, L100.0100 ####[facility] [address] [place], [address] Erythrocyte distribution width (RBC) [Ratio] 14.0 % Normal 11.6-14.6 [facility] Comment on above: Performed By: #### L 500.4050, L100.0100 ####[facility] [address] [place], [address] Hematocrit (Bld) [Volume fraction] 36.5 % Low 37-47 [facility] Comment on above: Performed By: #### L 500.4050, L100.0100 ####[facility] [address] [place], [address] Hemoglobin (Bld) [Mass/Vol] 12.0 g/dL Normal 12.0-15.0 [facility] Comment on above: Performed By: #### L 500.4050, L100.0100 ####[facility] [address] [place], [address] IG% 0.600 Normal 0.0-0.9 [facility] Comment on above: Result Comment: IG% - Immature Granulocytes (promyelocytes, myelocytes andmetamyelocytes) > 1% indicates that a LEFT SHIFT is Present. Performed By: #### L 500.4050, L100.0100 ####[facility] [address] [place], [address] Lymphocytes/100 WBC (Bld) 14.1 % Low 19-41 [facility] Comment on above: Performed By: #### L 500.4050, L100.0100 ####[facility] [address] [place], [address] MCH (RBC) [Entitic mass] 31.6 pg Normal 27.0-32.0 [facility] Comment on above: Performed By: #### L 500.4050, L100.0100 ####[facility] [address] [place], [address] MCHC (RBC) [Mass/Vol] 32.9 g/dL Normal 32-36 [facility] Comment on above: Performed By: #### L 500.4050, L100.0100 ####[facility] [address] [place], [address] MCV (RBC) [Entitic vol] 96.1 fL Normal 81-99 [facility] Comment on above: Performed By: #### L 500.4050, L100.0100 ####[facility] [address] [place], [address] Monocytes/100 WBC (Bld) 6.6 % Normal 0-10 [facility] Comment on above: Performed By: #### L 500.4050, L100.0100 ####[facility] [address] [place], [address] Neutrophils/100 WBC (Bld) 76.0 % High 47-70 [facility] Comment on above: Performed By: #### L 500.4050, L100.0100 ####[facility] [address] [place], [address] Nucleated RBC (Bld) [#/Vol] 0 10*3/uL Normal 0-5 [facility] Comment on above: Performed By: #### L 500.4050, L100.0100 ####[facility] [address] [place], [address] Platelet mean volume (Bld) [Entitic vol] 10.1 fL Normal 6.2-12.0 [facility] Comment on above: Performed By: #### L 500.4050, L100.0100 ####[facility] [address] [place], [address] Platelets (Bld) [#/Vol] 246 10*3/uL Normal 150-450 [facility] Comment on above: Performed By: #### L 500.4050, L100.0100 ####[facility] [address] [place], [address] RBC (Bld) [#/Vol] 3.80 10*6/uL Low 4.2-5.4 [facility] Comment on above: Performed By: #### L 500.4050, L100.0100 ####[facility] [address] [place], [address] RDW SD 48.5 fl High 35.1-43.9 [facility] Comment on above: Performed By: #### L 500.4050, L100.0100 ####[facility] [address] [place], [address] WBC (Bld) [#/Vol] 8.4 10*3/uL Normal 4.4-11.0 [facility] Comment on above: Performed By: #### L 500.4050, L100.0100 ####[facility] [address] [place], [address] Carbon dioxide, total [Moles /volume] in Central venous bloodOrdered By: Taylor Tejeda on 08-24-2024 CO2 [Moles/Vol] 21.5 mmol/L 21.0-32.0 [facility] Chloride assayOrdered By: Soledad Tejeda on 08-24-2024 Chloride [Moles/Vol] 104 mmol/L 98-108 [facility] Comprehensive Metabolic Prof ilon 08-24-2024 Albumin [Mass/Vol] 3.5 g/dL Normal 3.5-5.0 [facility] Comment on above: Performed By: #### L 500.4050, L100.0100 ####[facility] [address] [place], [address] Albumin/Globulin [Mass ratio] 1.4 {ratio} Normal 0.9-2.4 [facility] Comment on above: Performed By: #### L 500.4050, L100.0100 ####[facility] [address] [place], [address] ALK PHOS 163 U/L High 35-104 [facility] Comment on above: Performed By: #### L 500.4050, L100.0100 ####[facility] [address] [place], [address] ALT [Catalytic activity/Vol] 184 U/L High <=34 [facility] Comment on above: Performed By: #### L 500.4050, L100.0100 ####[facility] [address] [place], [address] AST [Catalytic activity/Vol] 54 U/L High <=31 [facility] Comment on above: Performed By: #### L 500.4050, L100.0100 ####[facility] [address] [place], [address] Bilirubin [Mass/Vol] 0.32 mg/dL Normal 0.00-1.30 [facility] Comment on above: Performed By: #### L 500.4050, L100.0100 ####[facility] [address] [place], [address] BUN/CRE 10.5 RATIO Normal 10-20 [facility] Comment on above: Performed By: #### L 500.4050, L100.0100 ####[facility] [address] [place], [address] Calcium [Mass/Vol] 8.8 mg/dL Normal 7.6-11.0 [facility] Comment on above: Performed By: #### L 500.4050, L100.0100 ####[facility] [address] [place], [address] Chloride [Moles/Vol] 104 mmol/L Normal 98-108 [facility] Comment on above: Performed By: #### L 500.4050, L100.0100 ####[facility] [address] [place], [address] CO2 [Moles/Vol] 21.5 mmol/L Normal 21.0-32.0 [facility] Comment on above: Performed By: #### L 500.4050, L100.0100 ####[facility] [address] [place], [address] Creatinine [Mass/Vol] 1.02 mg/dL Normal 0.70-1.20 [facility] Comment on above: Performed By: #### L 500.4050, L100.0100 ####[facility] [address] [place], [address] ECRCL 60.78 ml/min Normal 50-250 [facility] Comment on above: Performed By: #### L 500.4050, L100.0100 ####[facility] [address] [place], [address] GAP 12 Normal 5-15 [facility] Comment on above: Performed By: #### L 500.4050, L100.0100 ####[facility] [address] [place], [address] GFR/1.73 sq M.predicted among non-blacks MDRD (S/P/Bld) [Vol rate/Area] 70 mL/min/{1.73_m2} Normal >60 [facility] Comment on above: Result Comment: mL/m in/1.73m2 CKD-EPI Creatinine Equation (2020) Performed By: #### L 500.4050, L100.0100 ####[facility] [address] [place], [address] Globulin (S) [Mass/Vol] 2.5 g/dL Normal 2.2-4.2 [facility] Comment on above: Performed By: #### L 500.4050, L100.0100 ####[facility] [address] [place], [address] Glucose [Mass/Vol] 126 mg/dL High 70-99 [facility] Comment on above: Performed By: #### L 500.4050, L100.0100 ####[facility] [address] [place], [address] Potassium [Moles/Vol] 4.2 mmol/L Normal 3.3-5.1 [facility] Comment on above: Performed By: #### L 500.4050, L100.0100 ####[facility] [address] [place], [address] Sodium [Moles/Vol] 137 mmol/L Normal 133-145 [facility] Comment on above: Performed By: #### L 500.4050, L100.0100 ####[facility] [address] [place], [address] T PROT 6.0 g/dL Normal 5.9-8.4 [facility] Comment on above: Performed By: #### L 500.4050, L100.0100 ####[facility] [address] [place], [address] Urea nitrogen [Mass/Vol] 11 mg/dL Normal 4-19 [facility] Comment on above: Performed By: #### L 500.4050, L100.0100 ####[facility] [address] [place], [address] Discharge Instructionon 08-12 Discharge Instruction Normal [facility] Eosinophil percentageOrdered By: Taylor Tejeda on 08-24-2024 Eosinophils/100 WBC (Bld) 2.2 % 0-5 [facility] Erythrocyte distribution wid th ratioOrdered By: Taylor Tejeda on 08-24-2024 Erythrocyte distribution width (RBC) [Ratio] 14.0 % 11.6-14.6 [facility] Erythrocyte distribution wid th standard deviationOrdered By: Taylor Tejeda on 08-24-2024 Erythrocyte distribution width (RBC) [Ratio] 48.5 fl High 35.1-43.9 [facility] Glomerular filtration rate ( GFR) estimation/1.73 sq m using serum, plasma, or whole bOrdered By: Taylor Tejeda on 08-24-2024 GFR/1.73 sq M.predicted among non-blacks MDRD (S/P/Bld) [Vol rate/Area] 70 mL/min/{1.73_m2} >60 [facility] Hematocrit Auto (Bld) [Volum e fraction]Ordered By: Taylor Tejeda on 08-24-2024 Hematocrit (Bld) [Volume fraction] 36.5 % Low 37-47 [facility] Hemoglobin measurementOrdere d By: Taylor Tejeda 08-24-2024 Hemoglobin (Bld) [Mass/Vol] 12.0 g/dL 12.0-15.0 [facility] Immature granulocytes/100 WB C Auto (Bld)Ordered By: Taylor Tejeda 08-24-2024 Immature granulocytes/100 WBC (Bld) 0.600 % 0.0-0.9 [facility] MCV (mean corpuscular volume ) determinationOrdered By: Taylor Tejeda 08-24-2024 MCV (RBC) [Entitic vol] 96.1 fL 81-99 [facility] Mean corpuscular hemoglobin (MCH) determinationOrdered By: Taylor Tejeda 08-24-2024 MCH (RBC) [Entitic mass] 31.6 pg 27.0-32.0 [facility] Monocyte percentageOrdered B y: Taylor Tejeda on 08-24-2024 Monocytes/100 WBC (Bld) 6.6 % 0-10 [facility] Neutrophil percentageOrdered By: Taylor Tejeda 08-24-2024 Neutrophils/100 WBC (Bld) 76.0 % High 47-70 [facility] No Panel InformationOrdered By: Taylor Tejeda 08-24-2024 54 U/L High <32 [facility] Platelet countOrdered By: Soledad Tejeda on 08-24-2024 Platelets (Bld) [#/Vol] 246 10*3/uL 150-450 [facility] Potassium measurement (mass/ volume)Ordered By: Taylor Tejeda on 08-24-2024 Potassium (Unsp spec) [Mass/Vol] 4.2 mmol/L 3.3-5.1 [facility] RBC Auto (Bld) [#/Vol]Ordere d By: Taylor Tejeda on 08-24-2024 RBC (Bld) [#/Vol] 3.80 10*6/uL Low 4.2-5.4 [facility] Serum creatinine measurement (mass/volume)Ordered By: Taylor Tejeda on 08-24-2024 Creatinine [Mass/Vol] 1.02 mg/dL 0.70-1.20 [facility] Serum globulin measurementOr dered By: Taylor Tejeda on 08-24-2024 Globulin (S) [Mass/Vol] 2.5 g/dL 2.2-4.2 [facility] Serum glucose measurement (m ass/volume)Ordered By: Taylor Tejeda on 08-24-2024 Glucose [Mass/Vol] 126 mg/dL High 70-99 [facility] Serum or plasma alanine hair otransferase (ALT) measurementOrdered By: Taylor Tejeda 08-24-2024 ALT [Catalytic activity/Vol] 184 U/L High <35 [facility] Serum or plasma albumin leslie urement (mass/volume)Ordered By: Taylor Tejeda on 08-24-2024 Albumin [Mass/Vol] 3.5 g/dL 3.5-5.0 [facility] Serum or plasma albumin/glob ulin mass ratioOrdered By: Taylor Tejeda 08-24-2024 Albumin/Globulin [Mass ratio] 1.4 {ratio} 0.9-2.4 [facility] Serum or plasma alkaline delfin sphatase measurementOrdered By: Taylor Tejeda on 08-24-2024 ALP [Catalytic activity/Vol] 163 U/L High 35-104 [facility] Serum or plasma calcium leslie urement (mass/volume)Ordered By: Taylor Tejeda on 08-24-2024 Calcium [Mass/Vol] 8.8 mg/dL 7.6-11.0 [facility] Serum or plasma urea nitroge n measurement (mass/volume)Ordered By: Taylor Ileana on 08-24-2024 Urea nitrogen [Mass/Vol] 11 mg/dL 4-19 [facility] Sodium levelOrdered By: Taylor Ileana on 08-24-2024 Sodium [Moles/Vol] 137 mmol/L 133-145 [facility] Total proteinOrdered By: Laquita coyle Ileana on 08-24-2024 Protein [Mass/Vol] 6.0 g/dL 5.9-8.4 [facility] White blood cell (WBC) count Ordered By: Taylor Ileana on 08-24-2024 WBC (Bld) [#/Vol] 8.4 10*3/uL 4.4-11.0 [facility] Abdomen/Pelvis W IV Cont ONL Yon 08-23-2024 Abdomen/Pelvis W IV Cont ONLY Normal [facility] Abdomen/Pelvis without Conto n 08-23-2024 Abdomen/Pelvis without Cont Normal [facility] CBC W/Diff, Automatedon 08-12 Absolute Lymph 1.35 X10 3/uL Normal 0.83-4.51 [facility] Comment on above: Performed By: #### L 500.4050, L100.0100 ####[facility] [address] [place], [address] Absolute Neut 10.2 X10 3/uL High 2.0-7.7 [facility] Comment on above: Performed By: #### L 500.4050, L100.0100 ####[facility] [address] [place], [address] Basophils/100 WBC (Bld) 0.3 % Normal 0-1 [facility] Comment on above: Performed By: #### L 500.4050, L100.0100 ####[facility] [address] [place], [address] Eosinophils/100 WBC (Bld) 1.0 % Normal 0-5 [facility] Comment on above: Performed By: #### L 500.4050, L100.0100 ####[facility] [address] [place], [address] Erythrocyte distribution width (RBC) [Ratio] 13.5 % Normal 11.6-14.6 [facility] Comment on above: Performed By: #### L 500.4050, L100.0100 ####[facility] [address] [place], [address] Hematocrit (Bld) [Volume fraction] 38.3 % Normal 37-47 [facility] Comment on above: Performed By: #### L 500.4050, L100.0100 ####[facility] [address] [place], [address] Hemoglobin (Bld) [Mass/Vol] 12.7 g/dL Normal 12.0-15.0 [facility] Comment on above: Performed By: #### L 500.4050, L100.0100 ####[facility] [address] [place], [address] IG% 0.500 Normal 0.0-0.9 [facility] Comment on above: Result Comment: IG% - Immature Granulocytes (promyelocytes, myelocytes andmetamyelocytes) > 1% indicates that a LEFT SHIFT is Present. Performed By: #### L 500.4050, L100.0100 ####[facility] [address] [place], [address] Lymphocytes/100 WBC (Bld) 10.7 % Low 19-41 [facility] Comment on above: Performed By: #### L 500.4050, L100.0100 ####[facility] [address] [place], [address] MCH (RBC) [Entitic mass] 31.5 pg Normal 27.0-32.0 [facility] Comment on above: Performed By: #### L 500.4050, L100.0100 ####[facility] [address] [place], [address] MCHC (RBC) [Mass/Vol] 33.2 g/dL Normal 32-36 [facility] Comment on above: Performed By: #### L 500.4050, L100.0100 ####[facility] [address] [place], [address] MCV (RBC) [Entitic vol] 95.0 fL Normal 81-99 [facility] Comment on above: Performed By: #### L 500.4050, L100.0100 ####[facility] [address] [place], [address] Monocytes/100 WBC (Bld) 7.0 % Normal 0-10 [facility] Comment on above: Performed By: #### L 500.4050, L100.0100 ####[facility] [address] [place], [address] Neutrophils/100 WBC (Bld) 80.5 % High 47-70 [facility] Comment on above: Performed By: #### L 500.4050, L100.0100 ####[facility] [address] [place], [address] Nucleated RBC (Bld) [#/Vol] 0 10*3/uL Normal 0-5 [facility] Comment on above: Performed By: #### L 500.4050, L100.0100 ####[facility] [address] [place], [address] Platelet mean volume (Bld) [Entitic vol] 10.4 fL Normal 6.2-12.0 [facility] Comment on above: Performed By: #### L 500.4050, L100.0100 ####[facility] [address] [place], [address] Platelets (Bld) [#/Vol] 274 10*3/uL Normal 150-450 [facility] Comment on above: Performed By: #### L 500.4050, L100.0100 ####[facility] [address] [place], [address] RBC (Bld) [#/Vol] 4.03 10*6/uL Low 4.2-5.4 [facility] Comment on above: Performed By: #### L 500.4050, L100.0100 ####[facility] [address] [place], [address] RDW SD 46.5 fl High 35.1-43.9 [facility] Comment on above: Performed By: #### L 500.4050, L100.0100 ####[facility] [address] [place], [address] WBC (Bld) [#/Vol] 12.7 10*3/uL High 4.4-11.0 [facility] Comment on above: Performed By: #### L 500.4050, L100.0100 ####[facility] [address] [place], [address] Comprehensive Metabolic Prof njon 08-23-2024 Albumin [Mass/Vol] 4.0 g/dL Normal 3.5-5.0 [facility] Comment on above: Performed By: #### L 500.4050, L100.0100 ####[facility] [address] [place], [address] Albumin/Globulin [Mass ratio] 1.3 {ratio} Normal 0.9-2.4 [facility] Comment on above: Performed By: #### L 500.4050, L100.0100 ####[facility] [address] [place], [address] ALK PHOS 188 U/L High 35-104 [facility] Comment on above: Performed By: #### L 500.4050, L100.0100 ####[facility] [address] [place], [address] ALT [Catalytic activity/Vol] 277 U/L High <=34 [facility] Comment on above: Performed By: #### L 500.4050, L100.0100 ####[facility] [address] [place], [address] AST [Catalytic activity/Vol] 115 U/L High <=31 [facility] Comment on above: Performed By: #### L 500.4050, L100.0100 ####[facility] [address] [place], [address] Bilirubin [Mass/Vol] 0.59 mg/dL Normal 0.00-1.30 [facility] Comment on above: Performed By: #### L 500.4050, L100.0100 ####[facility] [address] [place], [address] BUN/CRE 9.0 RATIO Low 10-20 [facility] Comment on above: Performed By: #### L 500.4050, L100.0100 ####[facility] [address] [place], [address] Calcium [Mass/Vol] 9.1 mg/dL Normal 7.6-11.0 [facility] Comment on above: Performed By: #### L 500.4050, L100.0100 ####[facility] [address] [place], [address] Chloride [Moles/Vol] 100 mmol/L Normal 98-108 [facility] Comment on above: Performed By: #### L 500.4050, L100.0100 ####[facility] [address] [place], [address] CO2 [Moles/Vol] 23.1 mmol/L Normal 21.0-32.0 [facility] Comment on above: Performed By: #### L 500.4050, L100.0100 ####[facility] [address] [place], [address] Creatinine [Mass/Vol] 0.75 mg/dL Normal 0.70-1.20 [facility] Comment on above: Performed By: #### L 500.4050, L100.0100 ####[facility] [address] [place], [address] ECRCL 82.66 ml/min Normal 50-250 [facility] Comment on above: Performed By: #### L 500.4050, L100.0100 ####[facility] [address] [place], [address] GAP 12 Normal 5-15 [facility] Comment on above: Performed By: #### L 500.4050, L100.0100 ####[facility] [address] [place], [address] GFR/1.73 sq M.predicted among non-blacks MDRD (S/P/Bld) [Vol rate/Area] 100 mL/min/{1.73_m2} Normal >60 [facility] Comment on above: Result Comment: mL/m in/1.73m2 CKD-EPI Creatinine Equation (2020) Performed By: #### L 500.4050, L100.0100 ####[facility] [address] [place], [address] Globulin (S) [Mass/Vol] 3.0 g/dL Normal 2.2-4.2 [facility] Comment on above: Performed By: #### L 500.4050, L100.0100 ####[facility] [address] [place], [address] Glucose [Mass/Vol] 104 mg/dL High 70-99 [facility] Comment on above: Performed By: #### L 500.4050, L100.0100 ####[facility] [address] [place], [address] Potassium [Moles/Vol] 4.2 mmol/L Normal 3.3-5.1 [facility] Comment on above: Performed By: #### L 500.4050, L100.0100 ####[facility] [address] [place], [address] Sodium [Moles/Vol] 135 mmol/L Normal 133-145 [facility] Comment on above: Performed By: #### L 500.4050, L100.0100 ####[facility] [address] [place], [address] T PROT 7.0 g/dL Normal 5.9-8.4 [facility] Comment on above: Performed By: #### L 500.4050, L100.0100 ####[facility] [address] [place], [address] Urea nitrogen [Mass/Vol] 7 mg/dL Normal 4-19 [facility] Comment on above: Performed By: #### L 500.4050, L100.0100 ####[facility] [address] [place], [address] CBC W/Diff, Automatedon -03 14-2024 Absolute Lymph 1.39 X10 3/uL Normal 0.83-4.51 [facility] Comment on above: Performed By: #### L 500.4050, L100.0100 ####[facility] [address] [place], [address] Absolute Neut 8.6 X10 3/uL High 2.0-7.7 [facility] Comment on above: Performed By: #### L 500.4050, L100.0100 ####[facility] [address] [place], [address] Basophils/100 WBC (Bld) 0.5 % Normal 0-1 [facility] Comment on above: Performed By: #### L 500.4050, L100.0100 ####[facility] [address] [place], [address] Eosinophils/100 WBC (Bld) 0.8 % Normal 0-5 [facility] Comment on above: Performed By: #### L 500.4050, L100.0100 ####[facility] [address] [place], [address] Erythrocyte distribution width (RBC) [Ratio] 13.8 % Normal 11.6-14.6 [facility] Comment on above: Performed By: #### L 500.4050, L100.0100 ####[facility] [address] [place], [address] Hematocrit (Bld) [Volume fraction] 39.3 % Normal 37-47 [facility] Comment on above: Performed By: #### L 500.4050, L100.0100 ####[facility] [address] [place], [address] Hemoglobin (Bld) [Mass/Vol] 12.9 g/dL Normal 12.0-15.0 [facility] Comment on above: Performed By: #### L 500.4050, L100.0100 ####[facility] [address] [place], [address] IG% 0.500 Normal 0.0-0.9 [facility] Comment on above: Result Comment: IG% - Immature Granulocytes (promyelocytes, myelocytes andmetamyelocytes) > 1% indicates that a LEFT SHIFT is Present. Performed By: #### L 500.4050, L100.0100 ####[facility] [address] [place], [address] Lymphocytes/100 WBC (Bld) 12.5 % Low 19-41 [facility] Comment on above: Performed By: #### L 500.4050, L100.0100 ####[facility] [address] [place], [address] MCH (RBC) [Entitic mass] 31.3 pg Normal 27.0-32.0 [facility] Comment on above: Performed By: #### L 500.4050, L100.0100 ####[facility] [address] [place], [address] MCHC (RBC) [Mass/Vol] 32.8 g/dL Normal 32-36 [facility] Comment on above: Performed By: #### L 500.4050, L100.0100 ####[facility] [address] [place], [address] MCV (RBC) [Entitic vol] 95.4 fL Normal 81-99 [facility] Comment on above: Performed By: #### L 500.4050, L100.0100 ####[facility] [address] [place], [address] Monocytes/100 WBC (Bld) 8.0 % Normal 0-10 [facility] Comment on above: Performed By: #### L 500.4050, L100.0100 ####[facility] [address] [place], [address] Neutrophils/100 WBC (Bld) 77.7 % High 47-70 [facility] Comment on above: Performed By: #### L 500.4050, L100.0100 ####[facility] [address] [place], [address] Nucleated RBC (Bld) [#/Vol] 0 10*3/uL Normal 0-5 [facility] Comment on above: Performed By: #### L 500.4050, L100.0100 ####[facility] [address] [place], [address] Platelet mean volume (Bld) [Entitic vol] 10.0 fL Normal 6.2-12.0 [facility] Comment on above: Performed By: #### L 500.4050, L100.0100 ####[facility] [address] [place], [address] Platelets (Bld) [#/Vol] 291 10*3/uL Normal 150-450 [facility] Comment on above: Performed By: #### L 500.4050, L100.0100 ####[facility] [address] [place], [address] RBC (Bld) [#/Vol] 4.12 10*6/uL Low 4.2-5.4 [facility] Comment on above: Performed By: #### L 500.4050, L100.0100 ####[facility] [address] [place], [address] RDW SD 48.1 fl High 35.1-43.9 [facility] Comment on above: Performed By: #### L 500.4050, L100.0100 ####[facility] [address] [place], [address] WBC (Bld) [#/Vol] 11.1 10*3/uL High 4.4-11.0 [facility] Comment on above: Performed By: #### L 500.4050, L100.0100 ####[facility] [address] [place], [address] Comprehensive Metabolic Prof [facility] 08-22-2024 Albumin [Mass/Vol] 4.0 g/dL Normal 3.5-5.0 [facility] Comment on above: Performed By: #### L 500.4050, L100.0100 ####[facility] [address] [place], [address] Albumin/Globulin [Mass ratio] 1.4 {ratio} Normal 0.9-2.4 [facility] Comment on above: Performed By: #### L 500.4050, L100.0100 ####[facility] [address] [place], [address] ALK PHOS 199 U/L High 35-104 [facility] Comment on above: Performed By: #### L 500.4050, L100.0100 ####[facility] [address] [place], [address] ALT [Catalytic activity/Vol] 368 U/L High <=34 [facility] Comment on above: Performed By: #### L 500.4050, L100.0100 ####[facility] [address] [place], [address] AST [Catalytic activity/Vol] 284 U/L High <=31 [facility] Comment on above: Performed By: #### L 500.4050, L100.0100 ####[facility] [address] [place], [address] Bilirubin [Mass/Vol] 0.89 mg/dL Normal 0.00-1.30 [facility] Comment on above: Performed By: #### L 500.4050, L100.0100 ####[facility] [address] [place], [address] BUN/CRE 12.0 RATIO Normal 10-20 [facility] Comment on above: Performed By: #### L 500.4050, L100.0100 ####[facility] [address] [place], [address] Calcium [Mass/Vol] 9.5 mg/dL Normal 7.6-11.0 [facility] Comment on above: Performed By: #### L 500.4050, L100.0100 ####[facility] [address] [place], [address] Chloride [Moles/Vol] 101 mmol/L Normal 98-108 [facility] Comment on above: Performed By: #### L 500.4050, L100.0100 ####[facility] [address] [place], [address] CO2 [Moles/Vol] 22.1 mmol/L Normal 21.0-32.0 [facility] Comment on above: Performed By: #### L 500.4050, L100.0100 ####[facility] [address] [place], [address] Creatinine [Mass/Vol] 0.98 mg/dL Normal 0.70-1.20 [facility] Comment on above: Performed By: #### L 500.4050, L100.0100 ####[facility] [address] [place], [address] ECRCL 63.26 ml/min Normal 50-250 [facility] Comment on above: Performed By: #### L 500.4050, L100.0100 ####[facility] [address] [place], [address] GAP 12 Normal 5-15 [facility] Comment on above: Performed By: #### L 500.4050, L100.0100 ####[facility] [address] [place], [address] GFR/1.73 sq M.predicted among non-blacks MDRD (S/P/Bld) [Vol rate/Area] 73 mL/min/{1.73_m2} Normal >60 [facility] Comment on above: Result Comment: mL/m in/1.73m2 CKD-EPI Creatinine Equation (2020) Performed By: #### L 500.4050, L100.0100 ####[facility] [address] [place], [address] Globulin (S) [Mass/Vol] 2.8 g/dL Normal 2.2-4.2 [facility] Comment on above: Performed By: #### L 500.4050, L100.0100 ####[facility] [address] [place], [address] Glucose [Mass/Vol] 96 mg/dL Normal 70-99 [facility] Comment on above: Performed By: #### L 500.4050, L100.0100 ####[facility] [address] [place], [address] Potassium [Moles/Vol] 4.1 mmol/L Normal 3.3-5.1 [facility] Comment on above: Performed By: #### L 500.4050, L100.0100 ####[facility] [address] [place], [address] Sodium [Moles/Vol] 135 mmol/L Normal 133-145 [facility] Comment on above: Performed By: #### L 500.4050, L100.0100 ####[facility] [address] [place], [address] T PROT 6.9 g/dL Normal 5.9-8.4 [facility] Comment on above: Performed By: #### L 500.4050, L100.0100 ####[facility] [address] [place], [address] Urea nitrogen [Mass/Vol] 12 mg/dL Normal 4-19 [facility] Comment on above: Performed By: #### L 500.4050, L100.0100 ####[facility] [address] [place], [address] MR/ZCQTOIXT9qz 08-22-2024 MR/POSTOPAN2 Normal [facility] CBC-Complete Blood Cnt No Di ffon 08-21-2024 Erythrocyte distribution width (RBC) [Ratio] 13.7 % Normal 11.6-14.6 [facility] Comment on above: Performed By: #### L 100.0500, L500.4050 ####[facility] [address] [place], [address] Hematocrit (Bld) [Volume fraction] 39.1 % Normal 37-47 [facility] Comment on above: Performed By: #### L 100.0500, L500.4050 ####[facility] [address] [place], [address] Hemoglobin (Bld) [Mass/Vol] 12.6 g/dL Normal 12.0-15.0 [facility] Comment on above: Performed By: #### L 100.0500, L500.4050 ####[facility] [address] [place], [address] MCH (RBC) [Entitic mass] 31.2 pg Normal 27.0-32.0 [facility] Comment on above: Performed By: #### L 100.0500, L500.4050 ####[facility] [address] [place], [address] MCHC (RBC) [Mass/Vol] 32.2 g/dL Normal 32-36 [facility] Comment on above: Performed By: #### L 100.0500, L500.4050 ####[facility] [address] [place], [address] MCV (RBC) [Entitic vol] 96.8 fL Normal 81-99 [facility] Comment on above: Performed By: #### L 100.0500, L500.4050 ####[facility] [address] [place], [address] Platelet mean volume (Bld) [Entitic vol] 10.4 fL Normal 6.2-12.0 [facility] Comment on above: Performed By: #### L 100.0500, L500.4050 ####[facility] [address] [place], [address] Platelets (Bld) [#/Vol] 402 10*3/uL Normal 150-450 [facility] Comment on above: Performed By: #### L 100.0500, L500.4050 ####[facility] [address] [place], [address] RBC (Bld) [#/Vol] 4.04 10*6/uL Low 4.2-5.4 [facility] Comment on above: Performed By: #### L 100.0500, L500.4050 ####[facility] [address] [place], [address] RDW SD 48.3 fl High 35.1-43.9 [facility] Comment on above: Performed By: #### L 100.0500, L500.4050 ####[facility] [address] [place], [address] WBC (Bld) [#/Vol] 10.5 10*3/uL Normal 4.4-11.0 [facility] Comment on above: Performed By: #### L 100.0500, L500.4050 ####[facility] [address] [place], [address] Comprehensive Metabolic [facility] 08-21-2024 Albumin [Mass/Vol] 4.2 g/dL Normal 3.5-5.0 [facility] Comment on above: Performed By: #### L 100.0500, L500.4050 ####[facility] [address] [place], [address] Albumin/Globulin [Mass ratio] 1.4 {ratio} Normal 0.9-2.4 [facility] Comment on above: Performed By: #### L 100.0500, L500.4050 ####[facility] [address] [place], [address] ALK PHOS 197 U/L High 35-104 [facility] Comment on above: Performed By: #### L 100.0500, L500.4050 ####[facility] [address] [place], [address] ALT [Catalytic activity/Vol] 383 U/L High <=34 [facility] Comment on above: Performed By: #### L 100.0500, L500.4050 ####[facility] [address] [place], [address] AST [Catalytic activity/Vol] 535 U/L High <=31 [facility] Comment on above: Performed By: #### L 100.0500, L500.4050 ####[facility] [address] [place], [address] Bilirubin [Mass/Vol] 0.82 mg/dL Normal 0.00-1.30 [facility] Comment on above: Performed By: #### L 100.0500, L500.4050 ####[facility] [address] [place], [address] BUN/CRE 13.5 RATIO Normal 10-20 [facility] Comment on above: Performed By: #### L 100.0500, L500.4050 ####[facility] [address] [place], [address] Calcium [Mass/Vol] 9.5 mg/dL Normal 7.6-11.0 [facility] Comment on above: Performed By: #### L 100.0500, L500.4050 ####[facility] [address] [place], [address] Chloride [Moles/Vol] 100 mmol/L Normal 98-108 [facility] Comment on above: Performed By: #### L 100.0500, L500.4050 ####[facility] [address] [place], [address] CO2 [Moles/Vol] 22.0 mmol/L Normal 21.0-32.0 [facility] Comment on above: Performed By: #### L 100.0500, L500.4050 ####[facility] [address] [place], [address] Creatinine [Mass/Vol] 1.00 mg/dL Normal 0.70-1.20 [facility] Comment on above: Performed By: #### L 100.0500, L500.4050 ####[facility] [address] [place], [address] ECRCL 61.99 ml/min Normal 50-250 [facility] Comment on above: Performed By: #### L 100.0500, L500.4050 ####[facility] [address] [place], [address] GAP 13 Normal 5-15 [facility] Comment on above: Performed By: #### L 100.0500, L500.4050 ####[facility] [address] [place], [address] GFR/1.73 sq M.predicted among non-blacks MDRD (S/P/Bld) [Vol rate/Area] 71 mL/min/{1.73_m2} Normal >60 [facility] Comment on above: Result Comment: mL/m in/1.73m2 CKD-EPI Creatinine Equation (2020) Performed By: #### L 100.0500, L500.4050 ####[facility] [address] [place], [address] Globulin (S) [Mass/Vol] 2.9 g/dL Normal 2.2-4.2 [facility] Comment on above: Performed By: #### L 100.0500, L500.4050 ####[facility] [address] [place], [address] Glucose [Mass/Vol] 83 mg/dL Normal 70-99 [facility] Comment on above: Performed By: #### L 100.0500, L500.4050 ####[facility] [address] [place], [address] Potassium [Moles/Vol] 4.5 mmol/L Normal 3.3-5.1 [facility] Comment on above: Performed By: #### L 100.0500, L500.4050 ####[facility] [address] [place], [address] Sodium [Moles/Vol] 135 mmol/L Normal 133-145 [facility] Comment on above: Performed By: #### L 100.0500, L500.4050 ####[facility] [address] [place], [address] T PROT 7.1 g/dL Normal 5.9-8.4 [facility] Comment on above: Performed By: #### L 100.0500, L500.4050 ####[facility] [address] [place], [address] Urea nitrogen [Mass/Vol] 14 mg/dL Normal 4-19 [facility] Comment on above: Performed By: #### L 100.0500, L500.4050 ####[facility] [address] [place], [address] ERCP Biliary/Pancreason - ERCP Biliary/Pancreas Normal [facility] ERCP Reporton 08-21-2024 ERCP Report Normal [facility] Electrocardiogram reportOrde red By: Mercy Bishop on 08-21-2024 EKG study [facility] Work Phone: [phone] MR/POSTOP.ANEon 08-21-2024 MR/POSTOP.ANE Normal [facility] Special Stain Group IIon Special Stain Group II Normal [facility] Comment on above: Performed By: #### P SSII ####[facility] [address] [place], [place], [address] 12 Lead EKGon 08-20-2024 12 Lead EKG Normal [facility] Absolute lymphocyte countOrd ered By: ED PROVIDER on 08-20-2024 Lymphocytes Auto (Unsp spec) [#/Vol] 1.29 10*3/uL 0.83-4.51 [facility] Anion gap in Serum or Plasma Ordered By: Simona Fernandez on 08-20-2024 Anion gap [Moles/Vol] 13 mmol/L 5-15 [facility] Automated lymphocyte count a s percentage of total leukocytesOrdered By: ED PROVIDER on 08-20-2024 Lymphocytes/100 WBC Auto (Unsp spec) 10.9 % Low 19-41 [facility] BUN/creatinine ratioOrdered By: Simona Fernandez on 08-20-2024 Urea nitrogen/Creatinine [Mass ratio] 16.5 mg/mg 10-20 [facility] Basophil percentageOrdered B y: ED PROVIDER on 08-20-2024 Basophils/100 WBC (Bld) 0.4 % 0-1 [facility] Bilirubin Test strip Ql (U)O rdered By: Simona Fernandez on 08-20-2024 Bilirubin Ql (U) Negative Negative [facility] Bilirubin, totalOrdered By: Simona Fernandez on 08-20-2024 Bilirubin [Mass/Vol] 0.67 mg/dL 0.00-1.30 [facility] CBC W/Diff, Automatedon Absolute Lymph 1.29 X10 3/uL Normal 0.83-4.51 [facility] Comment on above: Performed By: #### L 700.6800, L500.4050, L100.0100, L501.2450 ####[facility] [address] [place], [place], [address] Absolute Neut 9.9 X10 3/uL High 2.0-7.7 [facility] Comment on above: Performed By: #### L 700.6800, L500.4050, L100.0100, L501.2450 ####[facility] [address] [place], [address] Basophils/100 WBC (Bld) 0.4 % Normal 0-1 [facility] Comment on above: Performed By: #### L 700.6800, L500.4050, L100.0100, L501.2450 ####[facility] [address] [place], [address] Eosinophils/100 WBC (Bld) 0.2 % Normal 0-5 [facility] Comment on above: Performed By: #### L 700.6800, L500.4050, L100.0100, L501.2450 ####[facility] [address] [place], [address] Erythrocyte distribution width (RBC) [Ratio] 13.6 % Normal 11.6-14.6 [facility] Comment on above: Performed By: #### L 700.6800, L500.4050, L100.0100, L501.2450 ####[facility] [address] [place], [address] Hematocrit (Bld) [Volume fraction] 38.1 % Normal 37-47 [facility] Comment on above: Performed By: #### L 700.6800, L500.4050, L100.0100, L501.2450 ####[facility] [address] [place], [address] Hemoglobin (Bld) [Mass/Vol] 12.6 g/dL Normal 12.0-15.0 [facility] Comment on above: Performed By: #### L 700.6800, L500.4050, L100.0100, L501.2450 ####[facility] [address] [place], [address] IG% 0.600 Normal 0.0-0.9 [facility] Comment on above: Result Comment: IG% - Immature Granulocytes (promyelocytes, myelocytes andmetamyelocytes) > 1% indicates that a LEFT SHIFT is Present. Performed By: #### L 700.6800, L500.4050, L100.0100, L501.2450 ####[facility] [address] [place], [address] Lymphocytes/100 WBC (Bld) 10.9 % Low 19-41 [facility] Comment on above: Performed By: #### L 700.6800, L500.4050, L100.0100, L501.2450 ####[facility] [address] [place], [address] MCH (RBC) [Entitic mass] 31.7 pg Normal 27.0-32.0 [facility] Comment on above: Performed By: #### L 700.6800, L500.4050, L100.0100, L501.2450 ####[facility] [address] [place], [address] MCHC (RBC) [Mass/Vol] 33.1 g/dL Normal 32-36 [facility] Comment on above: Performed By: #### L 700.6800, L500.4050, L100.0100, L501.2450 ####[facility] [address] [place], [address] MCV (RBC) [Entitic vol] 96.0 fL Normal 81-99 [facility] Comment on above: Performed By: #### L 700.6800, L500.4050, L100.0100, L501.2450 ####[facility] [address] [place], [address] Monocytes/100 WBC (Bld) 4.6 % Normal 0-10 [facility] Comment on above: Performed By: #### L 700.6800, L500.4050, L100.0100, L501.2450 ####[facility] [address] [place], [address] Neutrophils/100 WBC (Bld) 83.3 % High 47-70 [facility] Comment on above: Performed By: #### L 700.6800, L500.4050, L100.0100, L501.2450 ####[facility] [address] [place], [address] Nucleated RBC (Bld) [#/Vol] 0 10*3/uL Normal 0-5 [facility] Comment on above: Performed By: #### L 700.6800, L500.4050, L100.0100, L501.2450 ####[facility] [address] [place], [address] Platelet mean volume (Bld) [Entitic vol] 9.9 fL Normal 6.2-12.0 [facility] Comment on above: Performed By: #### L 700.6800, L500.4050, L100.0100, L501.2450 ####[facility] [address] [place], [address] Platelets (Bld) [#/Vol] 373 10*3/uL Normal 150-450 [facility] Comment on above: Performed By: #### L 700.6800, L500.4050, L100.0100, L501.2450 ####[facility] [address] [place], [address] RBC (Bld) [#/Vol] 3.97 10*6/uL Low 4.2-5.4 [facility] Comment on above: Performed By: #### L 700.6800, L500.4050, L100.0100, L501.2450 ####[facility] [address] [place], [address] RDW SD 47.5 fl High 35.1-43.9 [facility] Comment on above: Performed By: #### L 700.6800, L500.4050, L100.0100, L501.2450 ####[facility] [address] [place], [address] WBC (Bld) [#/Vol] 11.9 10*3/uL High 4.4-11.0 [facility] Comment on above: Performed By: #### L 700.6800, L500.4050, L100.0100, L501.2450 ####[facility] [address] [place], [address] Carbon dioxide, total [Moles /volume] in Central venous bloodOrdered By: Simona Fernandez on 08-20-2024 CO2 [Moles/Vol] 19.0 mmol/L Low 21.0-32.0 [facility] Chest PA and Lateralon 08-20 Chest PA and Lateral Normal [facility] Chloride assayOrdered By: Demetrio Fernandez on 08-20-2024 Chloride [Moles/Vol] 104 mmol/L 98-108 [facility] Comprehensive Metabolic Prof ilon 08-20-2024 Albumin [Mass/Vol] 4.0 g/dL Normal 3.5-5.0 [facility] Comment on above: Performed By: #### L 700.6800, L500.4050, L100.0100, L501.2450 ####[facility] [address] [place], [address] Albumin/Globulin [Mass ratio] 1.5 {ratio} Normal 0.9-2.4 [facility] Comment on above: Performed By: #### L 700.6800, L500.4050, L100.0100, L501.2450 ####[facility] [address] [place], [address] ALK PHOS 182 U/L High 35-104 [facility] Comment on above: Performed By: #### L 700.6800, L500.4050, L100.0100, L501.2450 ####[facility] [address] [place], [address] ALT [Catalytic activity/Vol] 103 U/L High <=34 [facility] Comment on above: Performed By: #### L 700.6800, L500.4050, L100.0100, L501.2450 ####[facility] [address] [place], [address] AST [Catalytic activity/Vol] 115 U/L High <=31 [facility] Comment on above: Performed By: #### L 700.6800, L500.4050, L100.0100, L501.2450 ####[facility] [address] [place], [address] Bilirubin [Mass/Vol] 0.67 mg/dL Normal 0.00-1.30 [facility] Comment on above: Performed By: #### L 700.6800, L500.4050, L100.0100, L501.2450 ####[facility] [address] [place], [address] BUN/CRE 16.5 RATIO Normal 10-20 [facility] Comment on above: Performed By: #### L 700.6800, L500.4050, L100.0100, L501.2450 ####[facility] [address] [place], [address] Calcium [Mass/Vol] 9.1 mg/dL Normal 7.6-11.0 [facility] Comment on above: Performed By: #### L 700.6800, L500.4050, L100.0100, L501.2450 ####[facility] [address] [place], [address] Chloride [Moles/Vol] 104 mmol/L Normal 98-108 [facility] Comment on above: Performed By: #### L 700.6800, L500.4050, L100.0100, L501.2450 ####[facility] [address] [place], [address] CO2 [Moles/Vol] 19.0 mmol/L Low 21.0-32.0 [facility] Comment on above: Performed By: #### L 700.6800, L500.4050, L100.0100, L501.2450 ####[facility] [address] [place], [address] Creatinine [Mass/Vol] 0.97 mg/dL Normal 0.70-1.20 [facility] Comment on above: Performed By: #### L 700.6800, L500.4050, L100.0100, L501.2450 ####[facility] [address] [place], [address] ECRCL 63.91 ml/min Normal 50-250 [facility] Comment on above: Performed By: #### L 700.6800, L500.4050, L100.0100, L501.2450 ####[facility] [address] [place], [address] GAP 13 Normal 5-15 [facility] Comment on above: Performed By: #### L 700.6800, L500.4050, L100.0100, L501.2450 ####[facility] [address] [place], [address] GFR/1.73 sq M.predicted among non-blacks MDRD (S/P/Bld) [Vol rate/Area] 74 mL/min/{1.73_m2} Normal >60 [facility] Comment on above: Result Comment: mL/m in/1.73m2 CKD-EPI Creatinine Equation (2020) Performed By: #### L 700.6800, L500.4050, L100.0100, L501.2450 ####[facility] [address] [place], [address] Globulin (S) [Mass/Vol] 2.7 g/dL Normal 2.2-4.2 [facility] Comment on above: Performed By: #### L 700.6800, L500.4050, L100.0100, L501.2450 ####[facility] [address] [place], [address] Glucose [Mass/Vol] 118 mg/dL High 70-99 [facility] Comment on above: Performed By: #### L 700.6800, L500.4050, L100.0100, L501.2450 ####[facility] [address] [place], [address] Potassium [Moles/Vol] 4.9 mmol/L Normal 3.3-5.1 [facility] Comment on above: Performed By: #### L 700.6800, L500.4050, L100.0100, L501.2450 ####[facility] [address] [place], [address] Sodium [Moles/Vol] 136 mmol/L Normal 133-145 [facility] Comment on above: Performed By: #### L 700.6800, L500.4050, L100.0100, L501.2450 ####[facility] [address] [place], [address] T PROT 6.6 g/dL Normal 5.9-8.4 [facility] Comment on above: Performed By: #### L 700.6800, L500.4050, L100.0100, L501.2450 ####[facility] [address] [place], [address] Urea nitrogen [Mass/Vol] 16 mg/dL Normal 4-19 [facility] Comment on above: Performed By: #### L 700.6800, L500.4050, L100.0100, L501.5330 ####[facility] [address] [place], [address] Emergency Department Summary on 08-20-2024 Emergency Department Summary Normal [facility] Eosinophil percentageOrdered By: ED PROVIDER on 08-20-2024 Eosinophils/100 WBC (Bld) 0.2 % 0-5 [facility] Erythrocyte distribution wid th ratioOrdered By: ED PROVIDER on 08-20-2024 Erythrocyte distribution width (RBC) [Ratio] 13.6 % 11.6-14.6 [facility] Erythrocyte distribution wid th standard deviationOrdered By: ED PROVIDER on 08-20-2024 Erythrocyte distribution width (RBC) [Ratio] 47.5 fl High 35.1-43.9 [facility] Glomerular filtration rate ( GFR) estimation/1.73 sq m using serum, plasma, or whole bOrdered By: Simona Fernandez on 08-20-2024 GFR/1.73 sq M.predicted among non-blacks MDRD (S/P/Bld) [Vol rate/Area] 74 mL/min/{1.73_m2} >60 [facility] H AND P Exam - Hospitaliston 08-20-2024 H&P Exam - Hospitalist Normal [facility] Hematocrit Auto (Bld) [Volum e fraction]Ordered By: ED PROVIDER on 08-20-2024 Hematocrit (Bld) [Volume fraction] 38.1 % 37-47 [facility] Hemoglobin measurementOrdere d By: ED PROVIDER on 08-20-2024 Hemoglobin (Bld) [Mass/Vol] 12.6 g/dL 12.0-15.0 [facility] Immature granulocytes/100 WB C Auto (Bld)Ordered By: ED PROVIDER on 08-20-2024 Immature granulocytes/100 WBC (Bld) 0.600 % 0.0-0.9 [facility] Ketones Test strip Ql (U)Ord ered By: Simona Fernandez on 08-20-2024 Ketones Ql (U) Negative Negative [facility] L503.7505on 08-20-2024 Natriuretic peptide B (Bld) [Mass/Vol] 3711 pg/mL High <=450 [facility] Comment on above: Result Comment: Hear t Failure Unlikely: < 300 pg/mLHeart Failure Likely< 50 Years: > 450 pg/mL50-75 Years: > 900 pg/mL>75 Years: > 1800 pg/mL Performed By: #### L 503.7505 ####[facility] [address] [place], [address] Lipaseon 08-20-2024 Lipase [Catalytic activity/Vol] 11 U/L Low 13-75 [facility] Comment on above: Result Comment: Liam rader note:LIPASE revised reference range effective 22.New Lipase methodology. Expected to produce lower valuesthan the previous assay method.NEW Reference Range: 13 - 75 U/L Performed By: #### L 700.6800, L500.4050, L100.0100, L501.2450 ####[facility] [address] [place], [address] Liveron 08-20-2024 Liver Normal [facility] MCV (mean corpuscular volume ) determinationOrdered By: ED PROVIDER on 08-20-2024 MCV (RBC) [Entitic vol] 96.0 fL 81-99 [facility] MR/CON.PCM.GIon 08-20-2024 MR/CON.PCM.GI Normal [facility] Mean corpuscular hemoglobin (MCH) determinationOrdered By: ED PROVIDER on 08-20-2024 MCH (RBC) [Entitic mass] 31.7 pg 27.0-32.0 [facility] Monocyte percentageOrdered B y: ED PROVIDER on 08-20-2024 Monocytes/100 WBC (Bld) 4.6 % 0-10 [facility] Mucus LM Ql (Urine sed)Order ed By: Simona Fernandez on 08-20-2024 Mucus Ql (Urine sed) 0 SEEN /hpf [facility] Natriuretic peptide.B prohor abbey N-Terminal [Mass/volume] in Serum or PlasmaOrdered By: Simona Fernandez on 08-20-2024 Natriuretic peptide.B prohormone N-Terminal [Mass/Vol] 3711 pg/mL High <450 [facility] Neutrophil percentageOrdered By: ED PROVIDER on 08-20-2024 Neutrophils/100 WBC (Bld) 83.3 % High 47-70 [facility] Nitrite Test strip Ql (U)Ord ered By: Simona Fernandez on 08-20-2024 Nitrite Ql (U) Negative Negative [facility] No Panel InformationOrdered By: Simona Fernandez on 08-20-2024 115 U/L High <32 [facility] Platelet countOrdered By: ED PROVIDER on 08-20-2024 Platelets (Bld) [#/Vol] 373 10*3/uL 150-450 [facility] Potassium measurement (mass/ volume)Ordered By: Simona Fernandez on 08-20-2024 Potassium (Unsp spec) [Mass/Vol] 4.9 mmol/L 3.3-5.1 [facility] ,Serum,hCG Quali.on 08-20-2024 HCG, SERUM QUAL Negative Normal [facility] Comment on above: Performed By: #### L 700.6800, L500.4050, L100.0100, L501.2450 ####[facility] [address] [place], [place], [address] ,Urineon 08-20-2024 Beta HCG ( test) Ql (U) Normal [facility] Comment on above: Order Comment: Femal es 12-55 or menstruation outside age range Result Comment: PREG SERUM ALREADY COMPLETED Performed By: #### L 400.1160 ####[facility] [address] [place], [address] INTERNAL QC OK? Normal [facility] Comment on above: Order Comment: Femal es 12-55 or menstruation outside age range Result Comment: PREG SERUM ALREADY COMPLETED Performed By: #### L 400.7600 ####[facility] [address] [place], [place], [id number] RECORD KIT LOT# Normal [facility] Comment on above: Order Comment: Femal es 12-55 or menstruation outside age range Result Comment: PREG SERUM ALREADY COMPLETED Performed By: #### L 400.8762 ####[facility] [address] [place], [address] Protein Test strip Ql (U)Ord ered By: Simona Fernandez on 08-20-2024 Protein Ql (U) 15 mg/dl High Negative [facility] RBC Auto (Bld) [#/Vol]Ordere d By: ED PROVIDER on 08-20-2024 RBC (Bld) [#/Vol] 3.97 10*6/uL Low 4.2-5.4 [facility] Serum beta-hCG test, qualita tiveOrdered By: Simona Fernandez on 08-20-2024 Beta HCG ( test) Ql Negative [facility] Serum creatinine measurement (mass/volume)Ordered By: Simona Fernandez on 08-20-2024 Creatinine [Mass/Vol] 0.97 mg/dL 0.70-1.20 [facility] Serum globulin measurementOr dered By: Simona Fernandez on 08-20-2024 Globulin (S) [Mass/Vol] 2.7 g/dL 2.2-4.2 [facility] Serum glucose measurement (m ass/volume)Ordered By: Simona Fernandez on 08-20-2024 Glucose [Mass/Vol] 118 mg/dL High 70-99 [facility] Serum or plasma alanine hair otransferase (ALT) measurementOrdered By: Simona Fernandez on 08-20-2024 ALT [Catalytic activity/Vol] 103 U/L High <35 [facility] Serum or plasma albumin leslie urement (mass/volume)Ordered By: Simona Fernandez on 08-20-2024 Albumin [Mass/Vol] 4.0 g/dL 3.5-5.0 [facility] Serum or plasma albumin/glob ulin mass ratioOrdered By: Simona Fernandez on 08-20-2024 Albumin/Globulin [Mass ratio] 1.5 {ratio} 0.9-2.4 [facility] Serum or plasma alkaline delfin sphatase measurementOrdered By: Simona Fernandez on 08-20-2024 ALP [Catalytic activity/Vol] 182 U/L High 35-104 [facility] Serum or plasma calcium leslie urement (mass/volume)Ordered By: Simona Fernandez on 08-20-2024 Calcium [Mass/Vol] 9.1 mg/dL 7.6-11.0 [facility] Serum or plasma urea nitroge n measurement (mass/volume)Ordered By: Simona Fernandez on 08-20-2024 Urea nitrogen [Mass/Vol] 16 mg/dL 4-19 [facility] Sodium levelOrdered By: Shanika Fernandez on 08-20-2024 Sodium [Moles/Vol] 136 mmol/L 133-145 [facility] Squamous epithelial cells de tection in urine sediment by light microscopyOrdered By: Simona Fernandez on 08-20-2024 Epithelial cells.squamous LM Ql (Urine sed) 0-5 SEEN /hpf -10 [facility] Total proteinOrdered By: Cherri Fernandez on 08-20-2024 Protein [Mass/Vol] 6.6 g/dL 5.9-8.4 [facility] Urinalysis, Completeon 08-20 EPI,SQUAMOUS 0-5 SEEN Normal 5-10 [facility] Comment on above: Order Comment: CLEAN CATCH Performed By: #### L 400.0001 ####[facility] [address] [place], [address] RBC 0-5 SEEN Normal 0-5 [facility] Comment on above: Order Comment: CLEAN CATCH Performed By: #### L 400.0001 ####[facility] [address] [place], [address] WBC 0-5 SEEN Normal 0-5 [facility] Comment on above: Order Comment: CLEAN CATCH Performed By: #### L 400.0001 ####[facility] [address] [place], [address] BACTERIA 0 SEEN Normal None Seen [facility] Comment on above: Order Comment: CLEAN CATCH Performed By: #### L 400.0001 ####[facility] [address] [place], [address] Mucus Ql (Urine sed) 0 SEEN Normal [facility] Comment on above: Order Comment: CLEAN CATCH Performed By: #### L 400.0001 ####[facility] [address] [place], [address] Urine clarityOrdered By: Cherri Fernandez on 08-20-2024 Clarity (U) Clear Clear [facility] Urine color determinationOrd ered By: Simona Fernandez on 08-20-2024 Color (U) Straw Yellow [facility] Urine glucose detectionOrder ed By: Simona Fernandez on 08-20-2024 Glucose Ql (U) Normal mg/dl Normal [facility] Urine leukocyte esterase det ection by dipstickOrdered By: Simona Fernandez on 08-20-2024 Leukocyte esterase Test strip Ql (U) Negative Negative [facility] Urine pHOrdered By: Simona lucio on 08-20-2024 pH (U) 6.5 [pH] 5.0 - 8.0 [facility] Urine sediment bacteria coun t by microscopy (number/high power field)Ordered By: Simona Fernandez on 08-20-2024 Bacteria LM.HPF (Urine sed) [#/Area] 0 /[HPF] None Seen [facility] Urine specific gravity measu rementOrdered By: Simona Fernandez on 08-20-2024 Specific gravity (U) [Rel density] 1.010 1.002-1.03 0 [facility] Urine urobilinogen measureme ntOrdered By: Simona Fernandez on 08-20-2024 Urobilinogen Ql (U) Normal mg/dl Normal [facility] White blood cell (WBC) count Ordered By: ED PROVIDER on 08-20-2024 WBC (Bld) [#/Vol] 11.9 10*3/uL High 4.4-11.0 [facility] White blood cell countOrdere d By: Simona Fernandez on 08-20-2024 White blood cell count 0-5 SEEN /hpf 0-5 [facility] Ova and Parasites 8623on OP Normal [facility] Comment on above: Performed By: #### L 7000.0700, M100.6796, L7400.3300, M100.0605, M100.637, M600.5000 ####[facility] [address] [place], [place], [address] ECG 12-LEADon 08-15-2024 ECG 12-LEAD Ventricular Rate 60 Atrial Rate 60 P-R Interval 170 QRS Duration 102 Q-T Interval 436 QTC Calculation(Bazett) 436 P Morganza 17 R Morganza -73 T Morganza 83 QRS Count 10 Q Onset 205 P Onset 120 P Offset 185 T Offset 423 QTC Fredericia 436 Diagnosis Normal sinus rhythm Possible Left atrial enlargement Incomplete right bundle branch block Left anterior fascicular block Septal infarct , age undetermined Abnormal ECG When compared with ECG of 05-MAY-2006 11:19, Significant changes have occurred Confirmed by Grady Sky ([id number]) on 10/13/2024 10:41:57 AM Normal [facility] SANDRA Comprehensive Panelon ANTI-DNA (DS)AB <1 Normal 0-9 [facility] Comment on above: Result Comment: Nega tive <5 Equivocal 5 - 9 Positive >9 Performed By: #### L 3300.1200, L100.0100, L501.9520, L300.3900, L3410.2400, L3200.1100, L3100.6900, L101.9900, L500.4050, L501.6710, L501.9985, L503.5510, L3200.0500, L5500.0410, L3100.5440, L3100.3425, L503.6150, L3300.0100, L3100.1850, L504.2610, L100.9950, L503.6550, L3400.0700, L3300.1800 ####[facility] [address] [place], [place], [address] ANTI-SS-A < 0.2 Normal 0.0-0.9 [facility] Comment on above: Performed By: #### L 3300.1200, L100.0100, L501.9520, L300.3900, L3410.2400, L3200.1100, L3100.6900, L101.9900, L500.4050, L501.6710, L501.9985, L503.5510, L3200.0500, L5500.0410, L3100.5440, L3100.3425, L503.6150, L3300.0100, L3100.1850, L504.2610, L100.9950, L503.6550, L3400.0700, L3300.1800 ####[facility] [address] [place], [place], [address] ANTI-SS-B 0.2 AI Normal 0.0-0.9 [facility] Comment on above: Performed By: #### L 3300.1200, L100.0100, L501.9520, L300.3900, L3410.2400, L3200.1100, L3100.6900, L101.9900, L500.4050, L501.6710, L501.9985, L503.5510, L3200.0500, L5500.0410, L3100.5440, L3100.3425, L503.6150, L3300.0100, L3100.1850, L504.2610, L100.9950, L503.6550, L3400.0700, L3300.1800 ####[facility] [address] [place], [place], [address] Abdomen/Pelvis without Conto n 08-11-2024 Abdomen/Pelvis without Cont Normal [facility] Absolute lymphocyte countOrd ered By: Gage Sharma on 08-11-2024 Lymphocytes Auto (Unsp spec) [#/Vol] 1.19 10*3/uL 0.83-4.51 [facility] Allergen, Food Profileon CLAM <0.10 Normal Class 0 [facility] Comment on above: Performed By: #### L 3300.1200, L100.0100, L501.9520, L300.3900, L3410.2400, L3200.1100, L3100.6900, L101.9900, L500.4050, L501.6710, L501.9985, L503.5510, L3200.0500, L5500.0410, L3100.5440, L3100.3425, L503.6150, L3300.0100, L3100.1850, L504.2610, L100.9950, L503.6550, L3400.0700, L3300.1800 ####[facility] [address] [place], [place], [address] CODFISH <0.10 Normal Class 0 [facility] Comment on above: Performed By: #### L 3300.1200, L100.0100, L501.9520, L300.3900, L3410.2400, L3200.1100, L3100.6900, L101.9900, L500.4050, L501.6710, L501.9985, L503.5510, L3200.0500, L5500.0410, L3100.5440, L3100.3425, L503.6150, L3300.0100, L3100.1850, L504.2610, L100.9950, L503.6550, L3400.0700, L3300.1800 ####[facility] [address] [place], [place], [address] COMMENT Comment Normal . [facility] Comment on above: Result Comment: Lupe urias of Specific IgE Class Description of Class ----- < 0.10 0 Negative 0.10 - 0.31 0/I Equivocal/Low 0.32 - 0.55 I Low 0.56 - 1.40 II Moderate 1.41 - 3.90 III High 3.91 - 19.00 IV Very High 19.01 - 100.00 V Very High >100.00 Very High Performed By: #### L 3300.1200, L100.0100, L501.9520, L300.3900, L3410.2400, L3200.1100, L3100.6900, L101.9900, L500.4050, L501.6710, L501.9985, L503.5510, L3200.0500, L5500.0410, L3100.5440, L3100.3425, L503.6150, L3300.0100, L3100.1850, L504.2610, L100.9950, L503.6550, L3400.0700, L3300.1800 ####[facility] [address] [place], [place], [address] CORN <0.10 Normal Class 0 [facility] Comment on above: Performed By: #### L 3300.1200, L100.0100, L501.9520, L300.3900, L3410.2400, L3200.1100, L3100.6900, L101.9900, L500.4050, L501.6710, L501.9985, L503.5510, L3200.0500, L5500.0410, L3100.5440, L3100.3425, L503.6150, L3300.0100, L3100.1850, L504.2610, L100.9950, L503.6550, L3400.0700, L3300.1800 ####[facility] [address] [place], [place], [address] EGG, WHITE <0.10 Normal Class 0 [facility] Comment on above: Performed By: #### L 3300.1200, L100.0100, L501.9520, L300.3900, L3410.2400, L3200.1100, L3100.6900, L101.9900, L500.4050, L501.6710, L501.9985, L503.5510, L3200.0500, L5500.0410, L3100.5440, L3100.3425, L503.6150, L3300.0100, L3100.1850, L504.2610, L100.9950, L503.6550, L3400.0700, L3300.1800 ####[facility] [address] [place], [place], [address] MILK (COW) 0.24 kU/L Abnormal Class 0/I [facility] Comment on above: Performed By: #### L 3300.1200, L100.0100, L501.9520, L300.3900, L3410.2400, L3200.1100, L3100.6900, L101.9900, L500.4050, L501.6710, L501.9985, L503.5510, L3200.0500, L5500.0410, L3100.5440, L3100.3425, L503.6150, L3300.0100, L3100.1850, L504.2610, L100.9950, L503.6550, L3400.0700, L3300.1800 ####[facility] [address] [place], [place], [address] PEANUT <0.10 Normal Class 0 [facility] Comment on above: Performed By: #### L 3300.1200, L100.0100, L501.9520, L300.3900, L3410.2400, L3200.1100, L3100.6900, L101.9900, L500.4050, L501.6710, L501.9985, L503.5510, L3200.0500, L5500.0410, L3100.5440, L3100.3425, L503.6150, L3300.0100, L3100.1850, L504.2610, L100.9950, L503.6550, L3400.0700, L3300.1800 ####[facility] [address] [facility] [place], [place], [address] SCALLOP <0.10 Normal Class 0 [facility] Comment on above: Performed By: #### L 3300.1200, L100.0100, L501.9520, L300.3900, L3410.2400, L3200.1100, L3100.6900, L101.9900, L500.4050, L501.6710, L501.9985, L503.5510, L3200.0500, L5500.0410, L3100.5440, L3100.3425, L503.6150, L3300.0100, L3100.1850, L504.2610, L100.9950, L503.6550, L3400.0700, L3300.1800 ####[facility] [address] [place], [address] SESAME SEED <0.10 Normal Class 0 [facility] Comment on above: Result Comment: Perf ormed at: [facility] [employer] [id number] Director: Victor M Hargrove PhD, Phone: [phone] at: [facility] [employer] [id number] Director: Isac Kemp MD, Phone: [phone] Performed By: #### L 3300.1200, L100.0100, L501.9520, L300.3900, L3410.2400, L3200.1100, L3100.6900, L101.9900, L500.4050, L501.6710, L501.9985, L503.5510, L3200.0500, L5500.0410, L3100.5440, L3100.3425, L503.6150, L3300.0100, L3100.1850, L504.2610, L100.9950, L503.6550, L3400.0700, L3300.1800 ####[facility] [address] [place], [address] SHRIMP <0.10 Normal Class 0 [facility] Comment on above: Performed By: #### L 3300.1200, L100.0100, L501.9520, L300.3900, L3410.2400, L3200.1100, L3100.6900, L101.9900, L500.4050, L501.6710, L501.9985, L503.5510, L3200.0500, L5500.0410, L3100.5440, L3100.3425, L503.6150, L3300.0100, L3100.1850, L504.2610, L100.9950, L503.6550, L3400.0700, L3300.1800 ####[facility] [address] [place], [place], [address] SOYBEAN <0.10 Normal Class 0 [facility] Comment on above: Performed By: #### L 3300.1200, L100.0100, L501.9520, L300.3900, L3410.2400, L3200.1100, L3100.6900, L101.9900, L500.4050, L501.6710, L501.9985, L503.5510, L3200.0500, L5500.0410, L3100.5440, L3100.3425, L503.6150, L3300.0100, L3100.1850, L504.2610, L100.9950, L503.6550, L3400.0700, L3300.1800 ####[facility] [address] [place], [place], [address] WALNUT,(Food) <0.10 Normal Class 0 [facility] Comment on above: Performed By: #### L 3300.1200, L100.0100, L501.9520, L300.3900, L3410.2400, L3200.1100, L3100.6900, L101.9900, L500.4050, L501.6710, L501.9985, L503.5510, L3200.0500, L5500.0410, L3100.5440, L3100.3425, L503.6150, L3300.0100, L3100.1850, L504.2610, L100.9950, L503.6550, L3400.0700, L3300.1800 ####[facility] [address] [place], [address] WHEAT <0.10 Normal Class 0 [facility] Comment on above: Performed By: #### L 3300.1200, L100.0100, L501.9520, L300.3900, L3410.2400, L3200.1100, L3100.6900, L101.9900, L500.4050, L501.6710, L501.9985, L503.5510, L3200.0500, L5500.0410, L3100.5440, L3100.3425, L503.6150, L3300.0100, L3100.1850, L504.2610, L100.9950, L503.6550, L3400.0700, L3300.1800 ####[facility] [address] [place], [place], [address] Anion gap in Serum or Plasma Ordered By: Gagejuan Sharma on 08-11-2024 Anion gap [Moles/Vol] 12 mmol/L 5-15 [facility] Automated lymphocyte count a s percentage of total leukocytesOrdered By: Gagejuan Sharma on 08-11-2024 Lymphocytes/100 WBC Auto (Unsp spec) 11.4 % Low 19-41 [facility] BUN/creatinine ratioOrdered By: Gage Sharma on 08-11-2024 Urea nitrogen/Creatinine [Mass ratio] 12.1 mg/mg - [facility] Basic Metabolic Profile (BMP )on 08-11-2024 BUN/CRE 12.1 RATIO Normal - [facility] Comment on above: Performed By: #### L 500.2500, L503.6005 ####[facility] [address] [place], [address] Calcium [Mass/Vol] 9.5 mg/dL Normal 7.6-11.0 [facility] Comment on above: Performed By: #### L 500.2500, L503.6005 ####[facility] [address] [place], [address] Chloride [Moles/Vol] 103 mmol/L Normal 98-108 [facility] Comment on above: Performed By: #### L 500.2500, L503.6005 ####[facility] [address] [place], [address] CO2 [Moles/Vol] 22.0 mmol/L Normal 21.0-32.0 [facility] Comment on above: Performed By: #### L 500.2500, L503.6005 ####[facility] [address] [place], [address] Creatinine [Mass/Vol] 0.74 mg/dL Normal 0.70-1.20 [facility] Comment on above: Performed By: #### L 500.2500, L503.6005 ####[facility] [address] [place], [address] ECRCL 83.77 ml/min Normal 50-250 [facility] Comment on above: Performed By: #### L 500.2500, L503.6005 ####[facility] [address] [place], [address] GAP 12 Normal 5-15 [facility] Comment on above: Performed By: #### L 500.2500, L503.6005 ####[facility] [address] [place], [address] GFR/1.73 sq M.predicted among non-blacks MDRD (S/P/Bld) [Vol rate/Area] 103 mL/min/{1.73_m2} Normal >60 [facility] Comment on above: Result Comment: mL/m in/1.73m2 CKD-EPI Creatinine Equation (2020) Performed By: #### L 500.2500, L503.6005 ####[facility] [address] [place], [address] Glucose [Mass/Vol] 90 mg/dL Normal 70-99 [facility] Comment on above: Performed By: #### L 500.2500, L503.6005 ####[facility] [address] [place], [address] Potassium [Moles/Vol] 4.2 mmol/L Normal 3.3-5.1 [facility] Comment on above: Performed By: #### L 500.2500, L503.6005 ####[facility] [address] [place], [address] Sodium [Moles/Vol] 137 mmol/L Normal 133-145 [facility] Comment on above: Performed By: #### L 500.2500, L503.6005 ####[facility] [address] [place], [address] Urea nitrogen [Mass/Vol] 9 mg/dL Normal 4-19 [facility] Comment on above: Performed By: #### L 500.2500, L503.6005 ####[facility] [address] [place], [address] Basophil percentageOrdered B y: Gage Sharma on 08-11-2024 Basophils/100 WBC (Bld) 0.9 % 0-1 [facility] Bilirubin Test strip Ql (U)O rdered By: Gage Sharma on 08-11-2024 Bilirubin Ql (U) Negative Negative [facility] Bilirubin directOrdered By: [facility] on 08-11-2024 Bilirubin.direct [Mass/Vol] 0.12 mg/dL 0.00-0.30 [facility] Bilirubin, totalOrdered By: Gage Sharma on 08-11-2024 Bilirubin [Mass/Vol] 0.29 mg/dL 0.00-1.30 [facility] CBC W/Diff, Automatedon 07-14 Absolute Lymph 1.19 X10 3/uL Normal 0.83-4.51 [facility] Comment on above: Performed By: #### L 100.0100 ####[facility] [address] [place], [address] Absolute Neut 8.4 X10 3/uL High 2.0-7.7 [facility] Comment on above: Performed By: #### L 100.0100 ####[facility] [address] [place], [address] Basophils/100 WBC (Bld) 0.9 % Normal 0-1 [facility] Comment on above: Performed By: #### L 100.0100 ####[facility] [address] [place], [address] Eosinophils/100 WBC (Bld) 1.9 % Normal 0-5 [facility] Comment on above: Performed By: #### L 100.0100 ####[facility] [address] [place], [address] Erythrocyte distribution width (RBC) [Ratio] 13.1 % Normal 11.6-14.6 [facility] Comment on above: Performed By: #### L 100.0100 ####[facility] [address] [place], [address] Hematocrit (Bld) [Volume fraction] 40.9 % Normal 37-47 [facility] Comment on above: Performed By: #### L 100.0100 ####[facility] [address] [place], [address] Hemoglobin (Bld) [Mass/Vol] 13.5 g/dL Normal 12.0-15.0 [facility] Comment on above: Performed By: #### L 100.0100 ####[facility] [address] [place], [address] IG% 0.700 Normal 0.0-0.9 [facility] Comment on above: Result Comment: IG% - Immature Granulocytes (promyelocytes, myelocytes andmetamyelocytes) > 1% indicates that a LEFT SHIFT is Present. Performed By: #### L 100.0100 ####[facility] [address] [place], [address] Lymphocytes/100 WBC (Bld) 11.4 % Low 19-41 [facility] Comment on above: Performed By: #### L 100.0100 ####[facility] [address] [place], [address] MCH (RBC) [Entitic mass] 31.7 pg Normal 27.0-32.0 [facility] Comment on above: Performed By: #### L 100.0100 ####[facility] [address] [place], [address] MCHC (RBC) [Mass/Vol] 33.0 g/dL Normal 32-36 [facility] Comment on above: Performed By: #### L 100.0100 ####[facility] [address] [place], [address] MCV (RBC) [Entitic vol] 96.0 fL Normal 81-99 [facility] Comment on above: Performed By: #### L 100.0100 ####[facility] [address] [place], [address] Monocytes/100 WBC (Bld) 4.9 % Normal 0-10 [facility] Comment on above: Performed By: #### L 100.0100 ####[facility] [address] [place], [address] Neutrophils/100 WBC (Bld) 80.2 % High 47-70 [facility] Comment on above: Performed By: #### L 100.0100 ####[facility] [address] [place], [address] Nucleated RBC (Bld) [#/Vol] 0 10*3/uL Normal 0-5 [facility] Comment on above: Performed By: #### L 100.0100 ####[facility] [address] [place], [address] Platelet mean volume (Bld) [Entitic vol] 9.9 fL Normal 6.2-12.0 [facility] Comment on above: Performed By: #### L 100.0100 ####[facility] [address] [place], [address] Platelets (Bld) [#/Vol] 433 10*3/uL Normal 150-450 [facility] Comment on above: Performed By: #### L 100.0100 ####[facility] [address] [place], [address] RBC (Bld) [#/Vol] 4.26 10*6/uL Normal 4.2-5.4 [facility] Comment on above: Performed By: #### L 100.0100 ####[facility] [address] [place], [address] RDW SD 46.5 fl High 35.1-43.9 [facility] Comment on above: Performed By: #### L 100.0100 ####[facility] [address] [place], [address] WBC (Bld) [#/Vol] 10.5 10*3/uL Normal 4.4-11.0 [facility] Comment on above: Performed By: #### L 100.0100 ####[facility] [address] [place], [address] Calprotectin, Stoolon [address] 13 ug/g Normal 0-120 [facility] Comment on above: Result Comment: Conc entration Interpretation Follow-Up< 5 - 50 ug/g Normal None>50 -120 ug/g Borderline Re-evaluate in 4-6 weeks >120 ug/g Abnormal Repeat as clinically indicatedPerformed at: [facility] [address] [place], [place] [id number] Director: Isac Kemp MD, Phone: [phone] Performed By: #### L 7000.0700, M100.6796, L7400.3300, M100.0605, M100.637, M600.5000 ####[facility] [address] [place], [place], [address] Carbon dioxide, total [Moles /volume] in Central venous bloodOrdered By: Gage Sharma on 08-11-2024 CO2 [Moles/Vol] 22.0 mmol/L 21.0-32.0 [facility] Chloride assayOrdered By: Jose Maria Sharma on 08-11-2024 Chloride [Moles/Vol] 103 mmol/L 98-108 [facility] Summary on 08-11-2024 Emergency Department Summary Normal [facility] Eosinophil percentageOrdered By: Gage Edith on 08-11-2024 Eosinophils/100 WBC (Bld) 1.9 % 0-5 [facility] Erythrocyte distribution wid th ratioOrdered By: Gage Sharma on 08-11-2024 Erythrocyte distribution width (RBC) [Ratio] 13.1 % 11.6-14.6 [facility] Erythrocyte distribution wid th standard deviationOrdered By: Gage Klkorin Batista on 08-11-2024 Erythrocyte distribution width (RBC) [Ratio] 46.5 fl High 35.1-43.9 [facility] Glomerular filtration rate ( GFR) estimation/1.73 sq m using serum, plasma, or whole bOrdered By: Gage Sharma on 08-11-2024 GFR/1.73 sq M.predicted among non-blacks MDRD (S/P/Bld) [Vol rate/Area] 103 mL/min/{1.73_m2} >60 [facility] Hematocrit Auto (Bld) [Volum e fraction]Ordered By: Gage Sharma on 08-11-2024 Hematocrit (Bld) [Volume fraction] 40.9 % 37-47 [facility] Hemoglobin measurementOrdere d By: Gage MilianCameliaLynne on 08-11-2024 Hemoglobin (Bld) [Mass/Vol] 13.5 g/dL 12.0-15.0 [facility] Immature granulocytes/100 WB C Auto (Bld)[facility] Immature granulocytes/100 WBC (Bld) 0.700 % 0.0-0.9 [facility] Ketones Test strip Ql (U)Ord ered [facility] 08-11-2024 Ketones Ql (U) Negative Negative [facility] Lactic Acidon 08-11-2024 Lactate [Moles/Vol] mmol/L Normal 0.0-2.0 [facility] Comment on above: Order Comment: Y Performed By: #### L 500.2500, L503.6005 ####[facility] [address] [place], [address] Lipaseon 08-11-2024 Lipase [Catalytic activity/Vol] 17 U/L Normal 13-75 [facility] Comment on above: Result Comment: Liam rader note:LIPASE revised reference range effective 22.New Lipase methodology. Expected to produce lower valuesthan the previous assay method.NEW Reference Range: 13 - 75 U/L Performed By: #### L 500.3400, L501.2450 ####[facility] [address] [place], [address] Liver Profileon 08-11-2024 Albumin [Mass/Vol] 4.0 g/dL Normal 3.5-5.0 [facility] Comment on above: Performed By: #### L 500.3400, L501.2450 ####[facility] [address] [place], [address] ALK PHOS 173 U/L High 35-104 [facility] Comment on above: Performed By: #### L 500.3400, L501.2450 ####[facility] [address] [place], [address] ALT [Catalytic activity/Vol] 32 U/L Normal <=34 [facility] Comment on above: Performed By: #### L 500.3400, L501.2450 ####[facility] [address] [place], [address] AST [Catalytic activity/Vol] 38 U/L High <=31 [facility] Comment on above: Performed By: #### L 500.3400, L501.2450 ####[facility] [address] [place], [address] Bilirubin [Mass/Vol] 0.29 mg/dL Normal 0.00-1.30 [facility] Comment on above: Performed By: #### L 500.3400, L5.2450 ####[facility] [address] [place], [address] Bilirubin.direct [Mass/Vol] 0.12 mg/dL Normal 0.00-0.30 [facility] Comment on above: Performed By: #### L 500.3400, L5.2450 ####[facility] [address] [place], [address] Globulin (S) [Mass/Vol] 3.1 g/dL Normal 2.2-4.2 [facility] Comment on above: Performed By: #### L 500.3400, L501.2450 ####[facility] [address] [place], [address] T PROT 7.2 g/dL Normal 5.9-8.4 [facility] Comment on above: Performed By: #### L 500.3400, L501.2450 ####[facility] [address] [place], [address] MCV (mean corpuscular volume ) determinationOrdered By: Gage Sharma on 08-11-2024 MCV (RBC) [Entitic vol] 96.0 fL 81-99 [facility] Mean corpuscular hemoglobin (MCH) determinationOrdered By: Gage Sharma on 08-11-2024 MCH (RBC) [Entitic mass] 31.7 pg 27.0-32.0 [facility] Monocyte percentageOrdered B y: Gage Sharma on 08-11-2024 Monocytes/100 WBC (Bld) 4.9 % 0-10 [facility] Mucus LM Ql (Urine sed)Order ed By: Gage Sharma on 08-11-2024 Mucus Ql (Urine sed) 0 SEEN /hpf [facility] Neutrophil percentageOrdered By: Gage Sharma on 08-11-2024 Neutrophils/100 WBC (Bld) 80.2 % High 47-70 [facility] Nitrite Test strip Ql (U)Ord ered By: Gage Sharma on 08-11-2024 Nitrite Ql (U) Negative Negative [facility] No Panel InformationOrdered By: Gage Sharma on 08-11-2024 38 U/L High <32 [facility] Platelet countOrdered By: Jose Maria Sharma on 08-11-2024 Platelets (Bld) [#/Vol] 433 10*3/uL 150-450 [facility] Potassium measurement (mass/ volume)Ordered By: Gage Sharma on 08-11-2024 Potassium (Unsp spec) [Mass/Vol] 4.2 mmol/L 3.3-5.1 [facility] ,Urineon 08-11-2024 Beta HCG ( test) Ql (U) Negative Normal [facility] Comment on above: Result Comment: Very dilute urine specimens, as indicated by a low specificgravity, may not contain goodwill representative levels of hCG.If is still suspected, a first morning urinespecimen should be collected 48 hours later and tested. Performed By: #### L 545.5222 ####[facility] [address] [place], [address] Protein Test strip Ql (U)Ord ered By: Gage Sharma on 08-11-2024 Protein Ql (U) 15 mg/dl High Negative [facility] RBC Auto (Bld) [#/Vol]Ordere d By: Gage Sharma on 08-11-2024 RBC (Bld) [#/Vol] 4.26 10*6/uL 4.2-5.4 [facility] Serum creatinine measurement (mass/volume)Ordered By: Gage Sharma on 08-11-2024 Creatinine [Mass/Vol] 0.74 mg/dL 0.70-1.20 [facility] Serum globulin measurementOr dered By: Gage Sharma on 08-11-2024 Globulin (S) [Mass/Vol] 3.1 g/dL 2.2-4.2 [facility] Serum glucose measurement (m ass/volume)Ordered By: Gage Sharma on 08-11-2024 Glucose [Mass/Vol] 90 mg/dL 70-99 [facility] Serum or plasma alanine hair otransferase (ALT) measurementOrdered By: Gage Sharma on 08-11-2024 ALT [Catalytic activity/Vol] 32 U/L <35 [facility] Serum or plasma albumin leslie urement (mass/volume)Ordered By: Gage Batista on 08-11-2024 Albumin [Mass/Vol] 4.0 g/dL 3.5-5.0 [facility] Serum or plasma alkaline delfin sphatase measurementOrdered By: Gage Sharma on 08-11-2024 ALP [Catalytic activity/Vol] 173 U/L High 35-104 [facility] Serum or plasma calcium leslie urement (mass/volume)Ordered By: Gage Batista on 08-11-2024 Calcium [Mass/Vol] 9.5 mg/dL 7.6-11.0 [facility] Serum or plasma urea nitroge n measurement (mass/volume)Ordered By: Gage Sharma on 08-11-2024 Urea nitrogen [Mass/Vol] 9 mg/dL 4-19 [facility] Sodium levelOrdered By: Edd Sharma on 08-11-2024 Sodium [Moles/Vol] 137 mmol/L 133-145 [facility] Squamous epithelial cells de tection in urine sediment by light microscopyOrdered By: Gage Sharma on 08-11-2024 Epithelial cells.squamous LM Ql (Urine sed) 0-5 SEEN /hpf 5-10 [facility] Total proteinOrdered By: Zev Sharma on 08-11-2024 Protein [Mass/Vol] 7.2 g/dL 5.9-8.4 [facility] Urinalysis, Completeon 08-11 BACTERIA RARE Normal None Seen [facility] Comment on above: Order Comment: CLEAN CATCH Performed By: #### L 400.0001 ####[facility] [address] [facility] [address] EPI,SQUAMOUS 0-5 SEEN Normal 5-10 [facility] Comment on above: Order Comment: CLEAN CATCH Performed By: #### L 400.0001 ####[facility] [address] [place], [address] RBC 0-5 SEEN Normal 0-5 [facility] Comment on above: Order Comment: CLEAN CATCH Performed By: #### L 400.0001 ####[facility] [address] [facility] [address] WBC 0-5 SEEN Normal 0-5 [facility] Comment on above: Order Comment: CLEAN CATCH Performed By: #### L 400.0001 ####[facility] [address] [place], [address] Mucus Ql (Urine sed) 0 SEEN Normal [facility] Comment on above: Order Comment: CLEAN CATCH Performed By: #### L 400.0001 ####[facility] [address] [place], [address] Urine clarityOrdered By: Zev Sharma on 08-11-2024 Clarity (U) Sl. Cloudy Clear [facility] Urine color determinationOrd ered By: Gage Sharma on 08-11-2024 Color (U) Yellow Yellow [facility] Urine glucose detectionOrder ed By: Gage Sharma on 08-11-2024 Glucose Ql (U) Normal mg/dl Normal [facility] Urine leukocyte esterase det ection by dipstickOrdered By: Gage Sharma on 08-11-2024 Leukocyte esterase Test strip Ql (U) Negative Negative [facility] Urine pHOrdered By: Gage Keller on 08-11-2024 pH (U) 7.0 [pH] 5.0 - 8.0 [facility] Urine testOrdered By: Gage Sharma on 08-11-2024 HCG ( test) Ql (U) Negative [facility] Urine sediment bacteria coun t by microscopy (number/high power field)Ordered By: Gage Sharma on 08-11-2024 Bacteria LM.HPF (Urine sed) [#/Area] RARE /hpf None Seen [facility] Urine specific gravity measu rementOrdered By: Gage Sharma on 08-11-2024 Specific gravity (U) [Rel density] 1.010 1.002-1.03 0 [facility] Urine urobilinogen measureme ntOrdered By: Gage Sharma on 08-11-2024 Urobilinogen Ql (U) Normal mg/dl Normal [facility] White blood cell (WBC) count Ordered By: Gage Sharma on 08-11-2024 WBC (Bld) [#/Vol] 10.5 10*3/uL 4.4-11.0 [facility] White blood cell countOrdere d By: Gage Sharma on 08-11-2024 White blood cell count 0-5 SEEN /hpf 0-5 [facility] 36on 08-10-2024 36 S: Patient called [facility] with complaints of [...] reports she had attempted to contact her [employer] as she has multiple GI issues, but was unable to get a response. Denies recent injury, fever, dysuria, urinary retention, incontinence, weakness, numbness, or hematuria. R: Patient instructed to proceed to evaluation of severe, sudden onset pain. Patient verbalizes understanding, and states she will proceed to [place] ED, and that her SO will drive her. Reason for Disposition Patient sounds very sick or weak to the triager Protocols used: Back [id number] Normal [facility] ANCAon 08-10-2024 Atypical pANCA <1:20 Normal Neg:<1:20 [facility] Comment on above: Order Comment: Test( s) 777096-Pyecau, Serum or Plasmawas developed and its performance characteristicsdetermined by [employer]. It has not been cleared or approvedby the Food and Drug Administration. Result Comment: The atypical pANCA pattern has been observed in asignificant percentage of patients with ulcerative colitis,primary sclerosing cholangitis and autoimmune hepatitis. Performed By: #### L 3300.1200, L100.0100, L501.9520, L300.3900, L3410.2400, L3200.1100, L3100.6900, L101.9900, L500.4050, L501.6710, L501.9985, L503.5510, L3200.0500, L5500.0410, L3100.5440, L3100.3425, L503.6150, L3300.0100, L3100.1850, L504.2610, L100.9950, L503.6550, L3400.0700, L3300.1800 ####[facility] [address] [place], [place], [address] Cytoplasmic Ab <1:20 Normal Neg:<1:20 [facility] Comment on above: Order Comment: Test( s) 844990-Zxqzzf, Serum or Plasmawas developed and its performance characteristicsdetermined by [employer]. It has not been cleared or approvedby the Food and Drug Administration. Performed By: #### L 3300.1200, L100.0100, L501.9520, L300.3900, L3410.2400, L3200.1100, L3100.6900, L101.9900, L500.4050, L501.6710, L501.9985, L503.5510, L3200.0500, L5500.0410, L3100.5440, L3100.3425, L503.6150, L3300.0100, L3100.1850, L504.2610, L100.9950, L503.6550, L3400.0700, L3300.1800 ####[facility] [address] [place], [address] Perinuclear Ab. <1:20 Normal Neg:<1:20 [facility] Comment on above: Order Comment: Test( s) 282075-Ykvuse, Serum or Plasmawas developed and its performance characteristicsdetermined by [employer]. It has not been cleared or approvedby the Food and Drug Administration. Result Comment: The presence of positive fluorescence exhibiting P-ANCA orC-ANCA patterns alone is not specific for the diagnosis ofWegener's Granulomatosis (WG) or microscopic polyangiitis.Decisions about treatment should not be based solely onANCA IFA results. The International ANCA Group Consensusrecommends follow up testing of positive sera with both MD-3 and MPO-ANCA enzyme immunoassays. As many as 5% serumsamples are positive only by EIA. Ref. AM J Clin Dzivbh2211;111:507-513. Performed By: #### L 3300.1200, L100.0100, L501.9520, L300.3900, L3410.2400, L3200.1100, L3100.6900, L101.9900, L500.4050, L501.6710, L501.9985, L503.5510, L3200.0500, L5500.0410, L3100.5440, L3100.3425, L503.6150, L3300.0100, L3100.1850, L504.2610, L100.9950, L503.6550, L3400.0700, L3300.1800 ####[facility] [address] [place], [place], [address] Angiotensin Convert Enzymeon 08-10-2024 ANGIOT-CONV.ENZ 62 U/L Normal 14-82 [facility] Comment on above: Order Comment: Test( s) 146990-Poerqt, Serum or Plasmawas developed and its performance characteristicsdetermined by [employer]. It has not been cleared or approvedby the Food and Drug Administration. Performed By: #### L 3300.1200, L100.0100, L501.9520, L300.3900, L3410.2400, L3200.1100, L3100.6900, L101.9900, L500.4050, L501.6710, L501.9985, L503.5510, L3200.0500, L5500.0410, L3100.5440, L3100.3425, L503.6150, L3300.0100, L3100.1850, L504.2610, L100.9950, L503.6550, L3400.0700, L3300.1800 ####[facility] [address] [facility] [address] [place], [place], [address] Celiac Disease Profileon ENDOMYSIAL IGA Negative Normal Negative [facility] Comment on above: Order Comment: Test( s) 352526-Iqzhql, Serum or Plasmawas developed and its performance characteristicsdetermined by [employer]. It has not been cleared or approvedby the Food and Drug Administration. Performed By: #### L 3300.1200, L100.0100, L501.9520, L300.3900, L3410.2400, L3200.1100, L3100.6900, L101.9900, L500.4050, L501.6710, L501.9985, L503.5510, L3200.0500, L5500.0410, L3100.5440, L3100.3425, L503.6150, L3300.0100, L3100.1850, L504.2610, L100.9950, L503.6550, L3400.0700, L3300.1800 ####[facility] [address] [place], [address] tTG IGA <2 Normal 0-3 [facility] Comment on above: Order Comment: Test( s) 618954-Bvuzxo, Serum or Plasmawas developed and its performance characteristicsdetermined by [employer]. It has not been cleared or approvedby the Food and Drug Administration. Result Comment: Nega tive 0 - 3 Weak Positive 4 - 10 Positive >10 Tissue Transglutaminase (tTG) has been identified as the endomysial antigen. Studies have demonstr- ated that endomysial IgA antibodies have over 99% specificity for gluten sensitive enteropathy. Performed By: #### L 3300.1200, L100.0100, L501.9520, L300.3900, L3410.2400, L3200.1100, L3100.6900, L101.9900, L500.4050, L501.6710, L501.9985, L503.5510, L3200.0500, L5500.0410, L3100.5440, L3100.3425, L503.6150, L3300.0100, L3100.1850, L504.2610, L100.9950, L503.6550, L3400.0700, L3300.1800 ####[facility] [address] [place], [place], [address] Ceruloplasminon 08-10-2024 CERULOPLASMIN 42.4 mg/dL High 19.0-39.0 [facility] Comment on above: Order Comment: Test( s) 219886-Uydllq, Serum or Plasmawas developed and its performance characteristicsdetermined by [employer]. It has not been cleared or approvedby the Food and Drug Administration. Performed By: #### L 3300.1200, L100.0100, L501.9520, L300.3900, L3410.2400, L3200.1100, L3100.6900, L101.9900, L500.4050, L501.6710, L501.9985, L503.5510, L3200.0500, L5500.0410, L3100.5440, L3100.3425, L503.6150, L3300.0100, L3100.1850, L504.2610, L100.9950, L503.6550, L3400.0700, L3300.1800 ####[facility] [address] [place], [place], [address] Copper, Serum or Plasmaon COPPER, SERUM 159 ug/dL High 80-158 [facility] Comment on above: Order Comment: Test( s) 971391-Xwkpaw, Serum or Plasmawas developed and its performance characteristicsdetermined by [employer]. It has not been cleared or approvedby the Food and Drug Administration. Result Comment: Dete ction Limit = 5 Performed By: #### L 3300.1200, L100.0100, L501.9520, L300.3900, L3410.2400, L3200.1100, L3100.6900, L101.9900, L500.4050, L501.6710, L501.9985, L503.5510, L3200.0500, L5500.0410, L3100.5440, L3100.3425, L503.6150, L3300.0100, L3100.1850, L504.2610, L100.9950, L503.6550, L3400.0700, L3300.1800 ####[facility] [address] [facility] [address] [place], [place], [address] Gastrin, Serumon 08-10-2024 GASTRIN 17 pg/mL Normal 0-115 [facility] Comment on above: Order Comment: Test( s) 428236-Tuhsax, Serum or Plasmawas developed and its performance characteristicsdetermined by [employer]. It has not been cleared or approvedby the Food and Drug Administration. Result Comment: [facility] Immulite 2000 Immunochemiluminometric assay (ICMA)Values obtained with different assay methods or kits cannotbe used interchangeably. Results cannot be interpreted asabsolute evidence of the presence or absence of malignantdisease. Performed By: #### L 3300.1200, L100.0100, L501.9520, L300.3900, L3410.2400, L3200.1100, L3100.6900, L101.9900, L500.4050, L501.6710, L501.9985, L503.5510, L3200.0500, L5500.0410, L3100.5440, L3100.3425, L503.6150, L3300.0100, L3100.1850, L504.2610, L100.9950, L503.6550, L3400.0700, L3300.1800 ####[facility] [address] [place], [address] Giardia Lamblia, Stool EIAon 08-10-2024 Giardia Stool Negative Normal Negative [facility] Comment on above: Result Comment: Perf ormed at: [facility] [id number] Director: Victor M Hargrove PhD, Phone: [phone] Performed By: #### L 7000.0700, M100.6796, L7400.3300, M100.0605, M100.637, M600.5000 ####[facility] [address] [place], [address] Haptoglobinon 08-10-2024 HAPTOGLOBIN 373 mg/dL High 42-296 [facility] Comment on above: Order Comment: Test( s) 071762-Igkdin, Serum or Plasmawas developed and its performance characteristicsdetermined by [employer]. It has not been cleared or approvedby the Food and Drug Administration. Result Comment: Perf ormed at: [facility] [place] [id number] [place], [place] [id number] Director: Victor M Hargrove PhD, Phone: [phone] at: [place] [address] [place], [place] [id number] Director: Isac Kemp MD, Phone: [phone] Performed By: #### L 3300.1200, L100.0100, L501.9520, L300.3900, L3410.2400, L3200.1100, L3100.6900, L101.9900, L500.4050, L501.6710, L501.9985, L503.5510, L3200.0500, L5500.0410, L3100.5440, L3100.3425, L503.6150, L3300.0100, L3100.1850, L504.2610, L100.9950, L503.6550, L3400.0700, L3300.1800 ####[facility] [address] [facility]. [place], [place], [id number] DAVID + Protein Elect, Serumon 08-10-2024 Albumin [Mass/Vol] 3.4 g/dL Normal 2.9-4.4 [facility] Comment on above: Order Comment: Test( s) 252067-Dqetzk, Serum or Plasmawas developed and its performance characteristicsdetermined by [employer]. It has not been cleared or approvedby the Food and Drug Administration.N Performed By: #### L 3300.1200, L100.0100, L501.9520, L300.3900, L3410.2400, L3200.1100, L3100.6900, L101.9900, L500.4050, L501.6710, L501.9985, L503.5510, L3200.0500, L5500.0410, L3100.5440, L3100.3425, L503.6150, L3300.0100, L3100.1850, L504.2610, L100.9950, L503.6550, L3400.0700, L3300.1800 ####[facility] [address] [facility]. [place], [place], [address] Albumin/Globulin [Mass ratio] 1.0 {ratio} Normal 0.7-1.7 [facility] Comment on above: Order Comment: Test( s) 365961-Gmioff, Serum or Plasmawas developed and its performance characteristicsdetermined by [employer]. It has not been cleared or approvedby the Food and Drug Administration.N Performed By: #### L 3300.1200, L100.0100, L501.9520, L300.3900, L3410.2400, L3200.1100, L3100.6900, L101.9900, L500.4050, L501.6710, L501.9985, L503.5510, L3200.0500, L5500.0410, L3100.5440, L3100.3425, L503.6150, L3300.0100, L3100.1850, L504.2610, L100.9950, L503.6550, L3400.0700, L3300.1800 ####[facility] [address] [facility] [place], [address] BUNFT-8-UEQM 0.2 g/dL Normal 0.0-0.4 [facility] Comment on above: Order Comment: Test( s) 221565-Cumvgm, Serum or Plasmawas developed and its performance characteristicsdetermined by [employer]. It has not been cleared or approvedby the Food and Drug Administration.N Performed By: #### L 3300.1200, L100.0100, L501.9520, L300.3900, L3410.2400, L3200.1100, L3100.6900, L101.9900, L500.4050, L501.6710, L501.9985, L503.5510, L3200.0500, L5500.0410, L3100.5440, L3100.3425, L503.6150, L3300.0100, L3100.1850, L504.2610, L100.9950, L503.6550, L3400.0700, L3300.1800 ####[facility] [address] [facility] [place], [address] QBMMZ-7-WGKA 1.1 g/dL High 0.4-1.0 [facility] Comment on above: Order Comment: Test( s) 065593-Lticqs, Serum or Plasmawas developed and its performance characteristicsdetermined by [employer]. It has not been cleared or approvedby the Food and Drug Administration.N Performed By: #### L 3300.1200, L100.0100, L501.9520, L300.3900, L3410.2400, L3200.1100, L3100.6900, L101.9900, L500.4050, L501.6710, L501.9985, L503.5510, L3200.0500, L5500.0410, L3100.5440, L3100.3425, L503.6150, L3300.0100, L3100.1850, L504.2610, L100.9950, L503.6550, L3400.0700, L3300.1800 ####[facility] [address] [facility]. [place], [place], [address] BETA GLOBULIN 1.2 g/dL Normal 0.7-1.3 [facility] Comment on above: Order Comment: Test( s) 633930-Frougs, Serum or Plasmawas developed and its performance characteristicsdetermined by [employer]. It has not been cleared or approvedby the Food and Drug Administration.N Performed By: #### L 3300.1200, L100.0100, L501.9520, L300.3900, L3410.2400, L3200.1100, L3100.6900, L101.9900, L500.4050, L501.6710, L501.9985, L503.5510, L3200.0500, L5500.0410, L3100.5440, L3100.3425, L503.6150, L3300.0100, L3100.1850, L504.2610, L100.9950, L503.6550, L3400.0700, L3300.1800 ####[facility] [address] [facility]. [place], [place], [address] GAMMA GLOBULIN 1.0 g/dL Normal 0.4-1.8 [facility] Comment on above: Order Comment: Test( s) 079328-Fjdera, Serum or Plasmawas developed and its performance characteristicsdetermined by [employer]. It has not been cleared or approvedby the Food and Drug Administration.N Performed By: #### L 3300.1200, L100.0100, L501.9520, L300.3900, L3410.2400, L3200.1100, L3100.6900, L101.9900, L500.4050, L501.6710, L501.9985, L503.5510, L3200.0500, L5500.0410, L3100.5440, L3100.3425, L503.6150, L3300.0100, L3100.1850, L504.2610, L100.9950, L503.6550, L3400.0700, L3300.1800 ####[facility] [address] [facility]. [place], [place], [address] Globulin (S) [Mass/Vol] 3.5 g/dL Normal 2.2-3.9 [facility] Comment on above: Order Comment: Test( s) 143033-Rumlww, Serum or Plasmawas developed and its performance characteristicsdetermined by [employer]. It has not been cleared or approvedby the Food and Drug Administration.N Performed By: #### L 3300.1200, L100.0100, L501.9520, L300.3900, L3410.2400, L3200.1100, L3100.6900, L101.9900, L500.4050, L501.6710, L501.9985, L503.5510, L3200.0500, L5500.0410, L3100.5440, L3100.3425, L503.6150, L3300.0100, L3100.1850, L504.2610, L100.9950, L503.6550, L3400.0700, L3300.1800 ####[facility] [address] [place], [place], [address] DAVID RESULT,S Comment Normal . [facility] Comment on above: Order Comment: Test( s) 284885-Dvsekn, Serum or Plasmawas developed and its performance characteristicsdetermined by [employer]. It has not been cleared or approvedby the Food and Drug Administration.N Result Comment: No m onoclonality detected. Performed By: #### L 3300.1200, L100.0100, L501.9520, L300.3900, L3410.2400, L3200.1100, L3100.6900, L101.9900, L500.4050, L501.6710, L501.9985, L503.5510, L3200.0500, L5500.0410, L3100.5440, L3100.3425, L503.6150, L3300.0100, L3100.1850, L504.2610, L100.9950, L503.6550, L3400.0700, L3300.1800 ####[facility] [address] [place], [place], [address] IMMUNOGLOB A QN 134 mg/dL Normal 87-352 [facility] Comment on above: Order Comment: Test( s) 692712-Kyogaq, Serum or Plasmawas developed and its performance characteristicsdetermined by [employer]. It has not been cleared or approvedby the Food and Drug Administration.N Performed By: #### L 3300.1200, L100.0100, L501.9520, L300.3900, L3410.2400, L3200.1100, L3100.6900, L101.9900, L500.4050, L501.6710, L501.9985, L503.5510, L3200.0500, L5500.0410, L3100.5440, L3100.3425, L503.6150, L3300.0100, L3100.1850, L504.2610, L100.9950, L503.6550, L3400.0700, L3300.1800 ####[facility] [address] [facility]. [place], [place], [address] IMMUNOGLOB M QN 217 mg/dL Normal 26-217 [facility] Comment on above: Order Comment: Test( s) 775586-Itnffl, Serum or Plasmawas developed and its performance characteristicsdetermined by [employer]. It has not been cleared or approvedby the Food and Drug Administration.N Performed By: #### L 3300.1200, L100.0100, L501.9520, L300.3900, L3410.2400, L3200.1100, L3100.6900, L101.9900, L500.4050, L501.6710, L501.9985, L503.5510, L3200.0500, L5500.0410, L3100.5440, L3100.3425, L503.6150, L3300.0100, L3100.1850, L504.2610, L100.9950, L503.6550, L3400.0700, L3300.1800 ####[facility] [id number] [facility]. [place], [place], [id number] M-Jayme Not Observed Normal Not Observed [facility] Comment on above: Order Comment: Test( s) [id number], Serum or Plasmawas developed and its performance characteristicsdetermined by [facility]. It has not been cleared or approvedby the Food and Drug Administration.N Performed By: #### L 3300.1200, L100.0100, L501.9520, L300.3900, L3410.2400, L3200.1100, L3100.6900, L101.9900, L500.4050, L501.6710, L501.9985, L503.5510, L3200.0500, L5500.0410, L3100.5440, L3100.3425, L503.6150, L3300.0100, L3100.1850, L504.2610, L100.9950, L503.6550, L3400.0700, L3300.1800 ####[facility] [id number] [facility] [place], [address] NOTE: Comment Normal . [facility] [facility] Comment on above: Order Comment: Test( s) 554103-Hdljfi, Serum or Plasmawas developed and its performance characteristicsdetermined by [facility]. It has not been cleared or approvedby the Food and Drug Administration.N Result Comment: Prot ein electrophoresis scan will follow via computer,mail, or primary teaching assistant delivery. Performed By: #### L 3300.1200, L100.0100, L501.9520, L300.3900, L3410.2400, L3200.1100, L3100.6900, L101.9900, L500.4050, L501.6710, L501.9985, L503.5510, L3200.0500, L5500.0410, L3100.5440, L3100.3425, L503.6150, L3300.0100, L3100.1850, L504.2610, L100.9950, L503.6550, L3400.0700, L3300.1800 ####[facility] [address] [facility], [address] Protein [Mass/Vol] 6.9 g/dL Normal 6.0-8.5 [facility] Comment on above: Order Comment: Test( s) 994936-Pmdkpw, Serum or Plasmawas developed and its performance characteristicsdetermined by [facility]. It has not been cleared or approvedby the Food and Drug Administration.N Performed By: #### L 3300.1200, L100.0100, L501.9520, L300.3900, L3410.2400, L3200.1100, L3100.6900, L101.9900, L500.4050, L501.6710, L501.9985, L503.5510, L3200.0500, L5500.0410, L3100.5440, L3100.3425, L503.6150, L3300.0100, L3100.1850, L504.2610, L100.9950, L503.6550, L3400.0700, L3300.1800 ####[facility] [address] [place], [place], [address] IgG Subclasseson 08-10-2024 IgG, SUBCLASS 1 509 mg/dL Normal 248-810 [facility] Comment on above: Order Comment: Test( s) 207646-Zcgtli, Serum or Plasmawas developed and its performance characteristicsdetermined by [facility]. It has not been cleared or approvedby the Food and Drug Administration. Performed By: #### L 3300.1200, L100.0100, L501.9520, L300.3900, L3410.2400, L3200.1100, L3100.6900, L101.9900, L500.4050, L501.6710, L501.9985, L503.5510, L3200.0500, L5500.0410, L3100.5440, L3100.3425, L503.6150, L3300.0100, L3100.1850, L504.2610, L100.9950, L503.6550, L3400.0700, L3300.1800 ####[facility] [address] [place], [place], [address] IgG, SUBCLASS 2 168 mg/dL Normal 130-555 [facility] Comment on above: Order Comment: Test( s) 600732-Togloi, Serum or Plasmawas developed and its performance characteristicsdetermined by [facility]. It has not been cleared or approvedby the Food and Drug Administration. Performed By: #### L 3300.1200, L100.0100, L501.9520, L300.3900, L3410.2400, L3200.1100, L3100.6900, L101.9900, L500.4050, L501.6710, L501.9985, L503.5510, L3200.0500, L5500.0410, L3100.5440, L3100.3425, L503.6150, L3300.0100, L3100.1850, L504.2610, L100.9950, L503.6550, L3400.0700, L3300.1800 ####[facility] [address] [facility]. [place], [place], [phone] IgG, SUBCLASS 3 73 mg/dL Normal 15-102 [facility] Comment on above: Order Comment: Test( s) 445876-Dshtmc, Serum or Plasmawas developed and its performance characteristicsdetermined by [facility]. It has not been cleared or approvedby the Food and Drug Administration. Performed By: #### L 3300.1200, L100.0100, L501.9520, L300.3900, L3410.2400, L3200.1100, L3100.6900, L101.9900, L500.4050, L501.6710, L501.9985, L503.5510, L3200.0500, L5500.0410, L3100.5440, L3100.3425, L503.6150, L3300.0100, L3100.1850, L504.2610, L100.9950, L503.6550, L3400.0700, L3300.1800 ####[facility] [address] [facility]. [place], [place], [id number] IgG, SUBCLASS 4 17 mg/dL Normal 2-96 [facility] Comment on above: Order Comment: Test( s) [id number]-Plgtkc, Serum or Plasmawas developed and its performance characteristicsdetermined by [facility]. It has not been cleared or approvedby the Food and Drug Administration. Performed By: #### L 3300.1200, L100.0100, L501.9520, L300.3900, L3410.2400, L3200.1100, L3100.6900, L101.9900, L500.4050, L501.6710, L501.9985, L503.5510, L3200.0500, L5500.0410, L3100.5440, L3100.3425, L503.6150, L3300.0100, L3100.1850, L504.2610, L100.9950, L503.6550, L3400.0700, L3300.1800 ####[facility] [address] [facility]. [place], [place], [address] IGG,QUANT 945 mg/dL Normal 586-1602 [facility] Comment on above: Order Comment: Test( s) 694483-Tzmfij, Serum or Plasmawas developed and its performance characteristicsdetermined by [facility]. It has not been cleared or approvedby the Food and Drug Administration. Performed By: #### L 3300.1200, L100.0100, L501.9520, L300.3900, L3410.2400, L3200.1100, L3100.6900, L101.9900, L500.4050, L501.6710, L501.9985, L503.5510, L3200.0500, L5500.0410, L3100.5440, L3100.3425, L503.6150, L3300.0100, L3100.1850, L504.2610, L100.9950, L503.6550, L3400.0700, L3300.1800 ####[facility] [address] [facility] [place], [address] Immunoglobulins G/A/M/Librado IMMUNOGLOB E QN 122 IU/mL Normal 6-495 [facility] Comment on above: Order Comment: Test( s) 699949-Rhwako, Serum or Plasmawas developed and its performance characteristicsdetermined by [facility]. It has not been cleared or approvedby the Food and Drug Administration.N Performed By: #### L 3300.1200, L100.0100, L501.9520, L300.3900, L3410.2400, L3200.1100, L3100.6900, L101.9900, L500.4050, L501.6710, L501.9985, L503.5510, L3200.0500, L5500.0410, L3100.5440, L3100.3425, L503.6150, L3300.0100, L3100.1850, L504.2610, L100.9950, L503.6550, L3400.0700, L3300.1800 ####[facility] [address] [place], [address] Amylaseon 08-09-2024 SALMA 19 U/L Low 28-100 [facility] Comment on above: Order Comment: ADD O NTO YESTERDAYS BLOOD Performed By: #### L 501.2400, L501.2450 ####[facility] [address] [place], [place], [phone] CDIFF (PCR)on 08-09-2024 CDIFF Pending [phone] NAP1-B1 Presumptive Negative *for epidemiolologic???use C. Diff PCR Negative- No toxigenic C. Diff Detected Normal [facility] Comment on above: Performed By: #### L 7000.0700, M100.6796, L7400.3300, M100.0605, M100.637, M600.5000 ####[facility] [address] [place], [place], [address] Calprotectin stoolOrdered By : Bárbara Ureña on 08-09-2024 Calprotectin stool 13 ug/g 0-120 [facility] Clostridium difficile detect ion by polymerase chain reactionOrdered By: Bárbara Ureña on 08-09-2024 C. difficile DNA BIMAL+probe Ql (Unsp spec) [facility] ENTERIC PATHOGEN PANEL STOOL on 08-09-2024 EP PANEL Normal [facility] Comment on above: Performed By: #### L 7000.0700, M100.6796, L7400.3300, M100.0605, M100.637, M600.5000 ####[facility] [address] [place], [address] Giardia lamblia ag stool EIA Ordered By: Bárbara Ureña on 08-09-2024 G. lamblia Ag IA Ql (Stl) Negative Negative [facility] Lipaseon 08-09-2024 Lipase [Catalytic activity/Vol] 24 U/L Normal 13-75 [facility] Comment on above: Order Comment: ADD O NTO YESTERDAYS BLOOD Result Comment: Plea se note:LIPASE revised reference range effective 22.New Lipase methodology. Expected to produce lower valuesthan the previous assay method.NEW Reference Range: 13 - 75 U/L Performed By: #### L 501.2400, L501.2450 ####[facility] [address] [facility] [place], [place], [id number] Serum or plasma amylase leslie urement (enzymatic activity/volume)Ordered By: Quang Myles on 08-09-2024 Amylase [Catalytic activity/Vol] 19 U/L Low 28-100 [facility] Stool Lactoferrin/WBCon 07-13 WBCST Normal Reference Ran ge = Negative Fecal WBC Lactoferrin Negative: No Fecal WBC Lactoferrin present Normal [facility] Comment on above: Performed By: #### L 7000.0700, M100.6796, L7400.3300, M100.0605, M100.637, M600.5000 ####[facility] [address] [facility]. [place], [place], [id number] Stool lactoferrin detection by immunoassayOrdered By: Bárbara Ureña on 08-09-2024 Lactoferrin IA Ql (Stl) [facility] Absolute lymphocyte countOrd ered By: Quang Myles on 08-08-2024 Lymphocytes Auto (Unsp spec) [#/Vol] 1.28 10*3/uL 0.83-4.51 [facility] Albumin Elph [Mass/Vol]Order ed By: Quang Myles on 08-08-2024 Albumin [Mass/Vol] 3.4 g/dL 2.9-4.4 [facility] Ammoniaon 08-08-2024 Ammonia (P) [Moles/Vol] 36.2 umol/L Normal [facility] Comment on above: Performed By: #### L 3300.1200, L100.0100, L501.9520, L300.3900, L3410.2400, L3200.1100, L3100.6900, L101.9900, L500.4050, L501.6710, L501.9985, L503.5510, L3200.0500, L5500.0410, L3100.5440, L3100.3425, L503.6150, L3300.0100, L3100.1850, L504.2610, L100.9950, L503.6550, L3400.0700, L3300.1800 ####[facility] [address] [place], [address] Anion gap in Serum or Plasma Ordered By: Quang Myles on 08-08-2024 Anion gap [Moles/Vol] 11 mmol/L 5-15 [facility] Automated lymphocyte count a s percentage of total leukocytesOrdered By: Quang Myles on 08-08-2024 Lymphocytes/100 WBC Auto (Unsp spec) 13.9 % Low 19-41 [facility] BUN/creatinine ratioOrdered By: Quangyunior Myles on 08-08-2024 Urea nitrogen/Creatinine [Mass ratio] 12.1 mg/mg 10-20 [facility] Basophil percentageOrdered B y: Quang Myles on 08-08-2024 Basophils/100 WBC (Bld) 0.9 % 0-1 [facility] Bilirubin, totalOrdered By: Quang Myles on 08-08-2024 Bilirubin [Mass/Vol] 0.23 mg/dL 0.00-1.30 [facility] CBC W/Diff, Automatedon 07-13 Absolute Lymph 1.28 X10 3/uL Normal 0.83-4.51 [facility] Comment on above: Performed By: #### L 3300.1200, L100.0100, L501.9520, L300.3900, L3410.2400, L3200.1100, L3100.6900, L101.9900, L500.4050, L501.6710, L501.9985, L503.5510, L3200.0500, L5500.0410, L3100.5440, L3100.3425, L503.6150, L3300.0100, L3100.1850, L504.2610, L100.9950, L503.6550, L3400.0700, L3300.1800 ####[facility] [address] [place], [address] Absolute Neut 7.0 X10 3/uL Normal 2.0-7.7 [facility] Comment on above: Performed By: #### L 3300.1200, L100.0100, L501.9520, L300.3900, L3410.2400, L3200.1100, L3100.6900, L101.9900, L500.4050, L501.6710, L501.9985, L503.5510, L3200.0500, L5500.0410, L3100.5440, L3100.3425, L503.6150, L3300.0100, L3100.1850, L504.2610, L100.9950, L503.6550, L3400.0700, L3300.1800 ####[facility] [address] [facility], [address] Basophils/100 WBC (Bld) 0.9 % Normal 0-1 [facility] Comment on above: Performed By: #### L 3300.1200, L100.0100, L501.9520, L300.3900, L3410.2400, L3200.1100, L3100.6900, L101.9900, L500.4050, L501.6710, L501.9985, L503.5510, L3200.0500, L5500.0410, L3100.5440, L3100.3425, L503.6150, L3300.0100, L3100.1850, L504.2610, L100.9950, L503.6550, L3400.0700, L3300.1800 ####[facility] [address] [facility], [address] Eosinophils/100 WBC (Bld) 3.8 % Normal 0-5 [facility] Comment on above: Performed By: #### L 3300.1200, L100.0100, L501.9520, L300.3900, L3410.2400, L3200.1100, L3100.6900, L101.9900, L500.4050, L501.6710, L501.9985, L503.5510, L3200.0500, L5500.0410, L3100.5440, L3100.3425, L503.6150, L3300.0100, L3100.1850, L504.2610, L100.9950, L503.6550, L3400.0700, L3300.1800 ####[facility] [address] [facility]. [place], [place], [address] Erythrocyte distribution width (RBC) [Ratio] 13.1 % Normal 11.6-14.6 [facility] Comment on above: Performed By: #### L 3300.1200, L100.0100, L501.9520, L300.3900, L3410.2400, L3200.1100, L3100.6900, L101.9900, L500.4050, L501.6710, L501.9985, L503.5510, L3200.0500, L5500.0410, L3100.5440, L3100.3425, L503.6150, L3300.0100, L3100.1850, L504.2610, L100.9950, L503.6550, L3400.0700, L3300.1800 ####[facility] [address] [facility] [place], [place], [id number] Hematocrit (Bld) [Volume fraction] 44.1 % Normal 37-47 [facility] Comment on above: Performed By: #### L 3300.1200, L100.0100, L501.9520, L300.3900, L3410.2400, L3200.1100, L3100.6900, L101.9900, L500.4050, L501.6710, L501.9985, L503.5510, L3200.0500, L5500.0410, L3100.5440, L3100.3425, L503.6150, L3300.0100, L3100.1850, L504.2610, L100.9950, L503.6550, L3400.0700, L3300.1800 ####[facility] [address] [facility]. [place], [place], [address] Hemoglobin (Bld) [Mass/Vol] 14.7 g/dL Normal 12.0-15.0 [facility] Comment on above: Performed By: #### L 3300.1200, L100.0100, L501.9520, L300.3900, L3410.2400, L3200.1100, L3100.6900, L101.9900, L500.4050, L501.6710, L501.9985, L503.5510, L3200.0500, L5500.0410, L3100.5440, L3100.3425, L503.6150, L3300.0100, L3100.1850, L504.2610, L100.9950, L503.6550, L3400.0700, L3300.1800 ####[facility] [address] [facility]. [place], [place], [address] IG% 0.500 Normal 0.0-0.9 [facility] Comment on above: Result Comment: IG% - Immature Granulocytes (promyelocytes, myelocytes andmetamyelocytes) > 1% indicates that a LEFT SHIFT is Present. Performed By: #### L 3300.1200, L100.0100, L501.9520, L300.3900, L3410.2400, L3200.1100, L3100.6900, L101.9900, L500.4050, L501.6710, L501.9985, L503.5510, L3200.0500, L5500.0410, L3100.5440, L3100.3425, L503.6150, L3300.0100, L3100.1850, L504.2610, L100.9950, L503.6550, L3400.0700, L3300.1800 ####[facility] [address] [facility]. [place], [place], [address] Lymphocytes/100 WBC (Bld) 13.9 % Low 19-41 [facility] Comment on above: Performed By: #### L 3300.1200, L100.0100, L501.9520, L300.3900, L3410.2400, L3200.1100, L3100.6900, L101.9900, L500.4050, L501.6710, L501.9985, L503.5510, L3200.0500, L5500.0410, L3100.5440, L3100.3425, L503.6150, L3300.0100, L3100.1850, L504.2610, L100.9950, L503.6550, L3400.0700, L3300.1800 ####[facility] [address] [place], [address] MCH (RBC) [Entitic mass] 32.0 pg Normal 27.0-32.0 [facility] Comment on above: Performed By: #### L 3300.1200, L100.0100, L501.9520, L300.3900, L3410.2400, L3200.1100, L3100.6900, L101.9900, L500.4050, L501.6710, L501.9985, L503.5510, L3200.0500, L5500.0410, L3100.5440, L3100.3425, L503.6150, L3300.0100, L3100.1850, L504.2610, L100.9950, L503.6550, L3400.0700, L3300.1800 ####[facility] [address] [place], [address] MCHC (RBC) [Mass/Vol] 33.3 g/dL Normal 32-36 [facility] Comment on above: Performed By: #### L 3300.1200, L100.0100, L501.9520, L300.3900, L3410.2400, L3200.1100, L3100.6900, L101.9900, L500.4050, L501.6710, L501.9985, L503.5510, L3200.0500, L5500.0410, L3100.5440, L3100.3425, L503.6150, L3300.0100, L3100.1850, L504.2610, L100.9950, L503.6550, L3400.0700, L3300.1800 ####[facility] [address] [place], [place], [address] MCV (RBC) [Entitic vol] 95.9 fL Normal 81-99 [facility] Comment on above: Performed By: #### L 3300.1200, L100.0100, L501.9520, L300.3900, L3410.2400, L3200.1100, L3100.6900, L101.9900, L500.4050, L501.6710, L501.9985, L503.5510, L3200.0500, L5500.0410, L3100.5440, L3100.3425, L503.6150, L3300.0100, L3100.1850, L504.2610, L100.9950, L503.6550, L3400.0700, L3300.1800 ####[facility] [address] [place], [place], [address] Monocytes/100 WBC (Bld) 5.4 % Normal 0-10 [facility] Comment on above: Performed By: #### L 3300.1200, L100.0100, L501.9520, L300.3900, L3410.2400, L3200.1100, L3100.6900, L101.9900, L500.4050, L501.6710, L501.9985, L503.5510, L3200.0500, L5500.0410, L3100.5440, L3100.3425, L503.6150, L3300.0100, L3100.1850, L504.2610, L100.9950, L503.6550, L3400.0700, L3300.1800 ####[facility] [address] [place], [place], [phone]04) Neutrophils/100 WBC (Bld) 75.5 % High 47-70 [facility] Comment on above: Performed By: #### L 3300.1200, L100.0100, L501.9520, L300.3900, L3410.2400, L3200.1100, L3100.6900, L101.9900, L500.4050, L501.6710, L501.9985, L503.5510, L3200.0500, L5500.0410, L3100.5440, L3100.3425, L503.6150, L3300.0100, L3100.1850, L504.2610, L100.9950, L503.6550, L3400.0700, L3300.1800 ####[facility] [address] [facility]. [place], [place], [address] Nucleated RBC (Bld) [#/Vol] 0 10*3/uL Normal 0-5 [facility] Comment on above: Performed By: #### L 3300.1200, L100.0100, L501.9520, L300.3900, L3410.2400, L3200.1100, L3100.6900, L101.9900, L500.4050, L501.6710, L501.9985, L503.5510, L3200.0500, L5500.0410, L3100.5440, L3100.3425, L503.6150, L3300.0100, L3100.1850, L504.2610, L100.9950, L503.6550, L3400.0700, L3300.1800 ####[facility] [address] [facility] [address] [place], [place], [address] Platelet mean volume (Bld) [Entitic vol] 9.9 fL Normal 6.2-12.0 [facility] Comment on above: Performed By: #### L 3300.1200, L100.0100, L501.9520, L300.3900, L3410.2400, L3200.1100, L3100.6900, L101.9900, L500.4050, L501.6710, L501.9985, L503.5510, L3200.0500, L5500.0410, L3100.5440, L3100.3425, L503.6150, L3300.0100, L3100.1850, L504.2610, L100.9950, L503.6550, L3400.0700, L3300.1800 ####[facility] [address] [facility]. [place], [place], [address] Platelets (Bld) [#/Vol] 375 10*3/uL Normal 150-450 [facility] Comment on above: Performed By: #### L 3300.1200, L100.0100, L501.9520, L300.3900, L3410.2400, L3200.1100, L3100.6900, L101.9900, L500.4050, L501.6710, L501.9985, L503.5510, L3200.0500, L5500.0410, L3100.5440, L3100.3425, L503.6150, L3300.0100, L3100.1850, L504.2610, L100.9950, L503.6550, L3400.0700, L3300.1800 ####[facility] [address] [facility]. [place], [place], [address] RBC (Bld) [#/Vol] 4.60 10*6/uL Normal 4.2-5.4 [facility] Comment on above: Performed By: #### L 3300.1200, L100.0100, L501.9520, L300.3900, L3410.2400, L3200.1100, L3100.6900, L101.9900, L500.4050, L501.6710, L501.9985, L503.5510, L3200.0500, L5500.0410, L3100.5440, L3100.3425, L503.6150, L3300.0100, L3100.1850, L504.2610, L100.9950, L503.6550, L3400.0700, L3300.1800 ####[facility] [address] [place], [place], [address] RDW SD 46.1 fl High 35.1-43.9 [facility] Comment on above: Performed By: #### L 3300.1200, L100.0100, L501.9520, L300.3900, L3410.2400, L3200.1100, L3100.6900, L101.9900, L500.4050, L501.6710, L501.9985, L503.5510, L3200.0500, L5500.0410, L3100.5440, L3100.3425, L503.6150, L3300.0100, L3100.1850, L504.2610, L100.9950, L503.6550, L3400.0700, L3300.1800 ####[facility] [address] [place], [place], [address] WBC (Bld) [#/Vol] 9.2 10*3/uL Normal 4.4-11.0 [facility] Comment on above: Performed By: #### L 3300.1200, L100.0100, L501.9520, L300.3900, L3410.2400, L3200.1100, L3100.6900, L101.9900, L500.4050, L501.6710, L501.9985, L503.5510, L3200.0500, L5500.0410, L3100.5440, L3100.3425, L503.6150, L3300.0100, L3100.1850, L504.2610, L100.9950, L503.6550, L3400.0700, L3300.1800 ####[facility] [address] [place], [place], [id number] CRPon 08-08-2024 C-REACTIVE PROT 16.80 mg/L High 0.0-3.0 [facility] Comment on above: Performed By: #### L 3300.1200, L100.0100, L501.9520, L300.3900, L3410.2400, L3200.1100, L3100.6900, L101.9900, L500.4050, L501.6710, L501.9985, L503.5510, L3200.0500, L5500.0410, L3100.5440, L3100.3425, L503.6150, L3300.0100, L3100.1850, L504.2610, L100.9950, L503.6550, L3400.0700, L3300.1800 ####[facility] [address] [place], [address] Carbon dioxide, total [Moles /volume] in Central venous bloodOrdered By: Quang Myles on 08-08-2024 CO2 [Moles/Vol] 21.1 mmol/L 21.0-32.0 [facility] Chloride assayOrdered By: Ra trvea Myles on 08-08-2024 Chloride [Moles/Vol] 106 mmol/L 98-108 [facility] Comprehensive Metabolic Prof ilon 08-08-2024 Albumin [Mass/Vol] 3.9 g/dL Normal 3.5-5.0 [facility] Comment on above: Performed By: #### L 3300.1200, L100.0100, L501.9520, L300.3900, L3410.2400, L3200.1100, L3100.6900, L101.9900, L500.4050, L501.6710, L501.9985, L503.5510, L3200.0500, L5500.0410, L3100.5440, L3100.3425, L503.6150, L3300.0100, L3100.1850, L504.2610, L100.9950, L503.6550, L3400.0700, L3300.1800 ####[facility] [address] [place], [place], [phone] Albumin/Globulin [Mass ratio] 1.1 {ratio} Normal 0.9-2.4 [facility] Comment on above: Performed By: #### L 3300.1200, L100.0100, L501.9520, L300.3900, L3410.2400, L3200.1100, L3100.6900, L101.9900, L500.4050, L501.6710, L501.9985, L503.5510, L3200.0500, L5500.0410, L3100.5440, L3100.3425, L503.6150, L3300.0100, L3100.1850, L504.2610, L100.9950, L503.6550, L3400.0700, L3300.1800 ####[facility] [address] [place], [place], [phone] ALK PHOS 155 U/L High 35-104 [facility] Comment on above: Performed By: #### L 3300.1200, L100.0100, L501.9520, L300.3900, L3410.2400, L3200.1100, L3100.6900, L101.9900, L500.4050, L501.6710, L501.9985, L503.5510, L3200.0500, L5500.0410, L3100.5440, L3100.3425, L503.6150, L3300.0100, L3100.1850, L504.2610, L100.9950, L503.6550, L3400.0700, L3300.1800 ####[facility] [address] [place], [place], [phone] ALT [Catalytic activity/Vol] 37 U/L High <=34 [facility] Comment on above: Performed By: #### L 3300.1200, L100.0100, L501.9520, L300.3900, L3410.2400, L3200.1100, L3100.6900, L101.9900, L500.4050, L501.6710, L501.9985, L503.5510, L3200.0500, L5500.0410, L3100.5440, L3100.3425, L503.6150, L3300.0100, L3100.1850, L504.2610, L100.9950, L503.6550, L3400.0700, L3300.1800 ####[facility] [address] [place], [place], [phone] AST [Catalytic activity/Vol] 43 U/L High <=31 [facility] Comment on above: Performed By: #### L 3300.1200, L100.0100, L501.9520, L300.3900, L3410.2400, L3200.1100, L3100.6900, L101.9900, L500.4050, L501.6710, L501.9985, L503.5510, L3200.0500, L5500.0410, L3100.5440, L3100.3425, L503.6150, L3300.0100, L3100.1850, L504.2610, L100.9950, L503.6550, L3400.0700, L3300.1800 ####[facility] [address] [place], [place], [phone] Bilirubin [Mass/Vol] 0.23 mg/dL Normal 0.00-1.30 [facility] Comment on above: Performed By: #### L 3300.1200, L100.0100, L501.9520, L300.3900, L3410.2400, L3200.1100, L3100.6900, L101.9900, L500.4050, L501.6710, L501.9985, L503.5510, L3200.0500, L5500.0410, L3100.5440, L3100.3425, L503.6150, L3300.0100, L3100.1850, L504.2610, L100.9950, L503.6550, L3400.0700, L3300.1800 ####[facility] [address] [place], [place], [phone](880) BUN/CRE 12.1 RATIO Normal 10-20 [facility] Comment on above: Performed By: #### L 3300.1200, L100.0100, L501.9520, L300.3900, L3410.2400, L3200.1100, L3100.6900, L101.9900, L500.4050, L501.6710, L501.9985, L503.5510, L3200.0500, L5500.0410, L3100.5440, L3100.3425, L503.6150, L3300.0100, L3100.1850, L504.2610, L100.9950, L503.6550, L3400.0700, L3300.1800 ####[facility] [address] [place], [place], [phone](350) Calcium [Mass/Vol] 9.7 mg/dL Normal 7.6-11.0 [facility] Comment on above: Performed By: #### L 3300.1200, L100.0100, L501.9520, L300.3900, L3410.2400, L3200.1100, L3100.6900, L101.9900, L500.4050, L501.6710, L501.9985, L503.5510, L3200.0500, L5500.0410, L3100.5440, L3100.3425, L503.6150, L3300.0100, L3100.1850, L504.2610, L100.9950, L503.6550, L3400.0700, L3300.1800 ####[facility] [address] [place], [place], [phone](927) Chloride [Moles/Vol] 106 mmol/L Normal 98-108 [facility] Comment on above: Performed By: #### L 3300.1200, L100.0100, L501.9520, L300.3900, L3410.2400, L3200.1100, L3100.6900, L101.9900, L500.4050, L501.6710, L501.9985, L503.5510, L3200.0500, L5500.0410, L3100.5440, L3100.3425, L503.6150, L3300.0100, L3100.1850, L504.2610, L100.9950, L503.6550, L3400.0700, L3300.1800 ####[facility] [address] [facility]. [place], [place], [phone] CO2 [Moles/Vol] 21.1 mmol/L Normal 21.0-32.0 [facility] Comment on above: Performed By: #### L 3300.1200, L100.0100, L501.9520, L300.3900, L3410.2400, L3200.1100, L3100.6900, L101.9900, L500.4050, L501.6710, L501.9985, L503.5510, L3200.0500, L5500.0410, L3100.5440, L3100.3425, L503.6150, L3300.0100, L3100.1850, L504.2610, L100.9950, L503.6550, L3400.0700, L3300.1800 ####[facility] [address] [facility]. [place], [place], [phone] Creatinine [Mass/Vol] 0.71 mg/dL Normal 0.70-1.20 [facility] Comment on above: Performed By: #### L 3300.1200, L100.0100, L501.9520, L300.3900, L3410.2400, L3200.1100, L3100.6900, L101.9900, L500.4050, L501.6710, L501.9985, L503.5510, L3200.0500, L5500.0410, L3100.5440, L3100.3425, L503.6150, L3300.0100, L3100.1850, L504.2610, L100.9950, L503.6550, L3400.0700, L3300.1800 ####[facility] [address] [place], [place], [id number] GAP 11 Normal 5-15 [facility] Comment on above: Performed By: #### L 3300.1200, L100.0100, L501.9520, L300.3900, L3410.2400, L3200.1100, L3100.6900, L101.9900, L500.4050, L501.6710, L501.9985, L503.5510, L3200.0500, L5500.0410, L3100.5440, L3100.3425, L503.6150, L3300.0100, L3100.1850, L504.2610, L100.9950, L503.6550, L3400.0700, L3300.1800 ####[facility] [address] [place], [place], [id number] GFR/1.73 sq M.predicted among non-blacks MDRD (S/P/Bld) [Vol rate/Area] 107 mL/min/{1.73_m2} Normal >60 [facility] Comment on above: Result Comment: mL/m in/1.73m2 CKD-EPI Creatinine Equation (2020) Performed By: #### L 3300.1200, L100.0100, L501.9520, L300.3900, L3410.2400, L3200.1100, L3100.6900, L101.9900, L500.4050, L501.6710, L501.9985, L503.5510, L3200.0500, L5500.0410, L3100.5440, L3100.3425, L503.6150, L3300.0100, L3100.1850, L504.2610, L100.9950, L503.6550, L3400.0700, L3300.1800 ####[facility] [address] [place], [address] Globulin (S) [Mass/Vol] 3.4 g/dL Normal 2.2-4.2 [facility] Comment on above: Performed By: #### L 3300.1200, L100.0100, L501.9520, L300.3900, L3410.2400, L3200.1100, L3100.6900, L101.9900, L500.4050, L501.6710, L501.9985, L503.5510, L3200.0500, L5500.0410, L3100.5440, L3100.3425, L503.6150, L3300.0100, L3100.1850, L504.2610, L100.9950, L503.6550, L3400.0700, L3300.1800 ####[facility] [address] [place], [address] Glucose [Mass/Vol] 93 mg/dL Normal 70-99 [facility] Comment on above: Performed By: #### L 3300.1200, L100.0100, L501.9520, L300.3900, L3410.2400, L3200.1100, L3100.6900, L101.9900, L500.4050, L501.6710, L501.9985, L503.5510, L3200.0500, L5500.0410, L3100.5440, L3100.3425, L503.6150, L3300.0100, L3100.1850, L504.2610, L100.9950, L503.6550, L3400.0700, L3300.1800 ####[facility] [address] [place], [address] Potassium [Moles/Vol] 4.2 mmol/L Normal 3.3-5.1 [facility] Comment on above: Performed By: #### L 3300.1200, L100.0100, L501.9520, L300.3900, L3410.2400, L3200.1100, L3100.6900, L101.9900, L500.4050, L501.6710, L501.9985, L503.5510, L3200.0500, L5500.0410, L3100.5440, L3100.3425, L503.6150, L3300.0100, L3100.1850, L504.2610, L100.9950, L503.6550, L3400.0700, L3300.1800 ####[facility] [address] [place], [place], [address] Sodium [Moles/Vol] 138 mmol/L Normal 133-145 [facility] Comment on above: Performed By: #### L 3300.1200, L100.0100, L501.9520, L300.3900, L3410.2400, L3200.1100, L3100.6900, L101.9900, L500.4050, L501.6710, L501.9985, L503.5510, L3200.0500, L5500.0410, L3100.5440, L3100.3425, L503.6150, L3300.0100, L3100.1850, L504.2610, L100.9950, L503.6550, L3400.0700, L3300.1800 ####[facility] [address] [place], [place], [address] T PROT 7.3 g/dL Normal 5.9-8.4 [facility] Comment on above: Performed By: #### L 3300.1200, L100.0100, L501.9520, L300.3900, L3410.2400, L3200.1100, L3100.6900, L101.9900, L500.4050, L501.6710, L501.9985, L503.5510, L3200.0500, L5500.0410, L3100.5440, L3100.3425, L503.6150, L3300.0100, L3100.1850, L504.2610, L100.9950, L503.6550, L3400.0700, L3300.1800 ####[facility] [address] [facility]. [place], [place], [id number] Urea nitrogen [Mass/Vol] 9 mg/dL Normal 4-19 [facility] Comment on above: Performed By: #### L 3300.1200, L100.0100, L501.9520, L300.3900, L3410.2400, L3200.1100, L3100.6900, L101.9900, L500.4050, L501.6710, L501.9985, L503.5510, L3200.0500, L5500.0410, L3100.5440, L3100.3425, L503.6150, L3300.0100, L3100.1850, L504.2610, L100.9950, L503.6550, L3400.0700, L3300.1800 ####[facility] [address] [facility]. [place], [place], [id number] Eosinophil percentageOrdered By: Quang Myles on 08-08-2024 Eosinophils/100 WBC (Bld) 3.8 % 0-5 [facility] Erythrocyte Sed Rateon 08-08 SED RATE 69 mm/hr High 0-30 [facility] Comment on above: Performed By: #### L 3300.1200, L100.0100, L501.9520, L300.3900, L3410.2400, L3200.1100, L3100.6900, L101.9900, L500.4050, L501.6710, L501.9985, L503.5510, L3200.0500, L5500.0410, L3100.5440, L3100.3425, L503.6150, L3300.0100, L3100.1850, L504.2610, L100.9950, L503.6550, L3400.0700, L3300.1800 ####[facility] [address] [facility] [place], [place], [id number] Erythrocyte distribution wid th ratioOrdered By: Quang Friend on 08-08-2024 Erythrocyte distribution width (RBC) [Ratio] 13.1 % 11.6-14.6 [facility] Erythrocyte distribution wid th standard deviationOrdered By: Quang Friend on 08-08-2024 Erythrocyte distribution width (RBC) [Ratio] 46.1 fl High 35.1-43.9 [facility] Erythrocyte sedimentation ra teOrdered By: Quang Myles on 08-08-2024 ESR (Bld) [Velocity] 69 mm/h High 0-30 [facility] Ferritinon 08-08-2024 Ferritin [Mass/Vol] 216 ng/mL Normal 22-378 [facility] Comment on above: Performed By: #### L 3300.1200, L100.0100, L501.9520, L300.3900, L3410.2400, L3200.1100, L3100.6900, L101.9900, L500.4050, L501.6710, L501.9985, L503.5510, L3200.0500, L5500.0410, L3100.5440, L3100.3425, L503.6150, L3300.0100, L3100.1850, L504.2610, L100.9950, L503.6550, L3400.0700, L3300.1800 ####[facility] [address] [place], [address] Gastrin, serumOrdered By: Ra tilley Friend on 08-08-2024 Gastrin [Mass/Vol] 17 pg/mL 0-115 [facility] Gastroenterology Visit Repor ton 08-08-2024 Gastroenterology Visit Report Normal [facility] Glomerular filtration rate ( GFR) estimation/1.73 sq m using serum, plasma, or whole bOrdered By: Quang Myles on 08-08-2024 GFR/1.73 sq M.predicted among non-blacks MDRD (S/P/Bld) [Vol rate/Area] 107 mL/min/{1.73_m2} >60 [facility] Hematocrit Auto (Bld) [Volum e fraction]Ordered By: Quang Myles on 08-08-2024 Hematocrit (Bld) [Volume fraction] 44.1 % 37-47 [facility] Hemoglobin A1con 08-08-2024 HbA1c (Bld) [Mass fraction] 6.0 % High <=5.6 [facility] Comment on above: Result Comment: Norm al < 5.7 % Prediabetic 5.7 - 6.4 % Diabetic >or= 6.5 % Please note range changes. Performed By: #### L 3300.1200, L100.0100, L501.9520, L300.3900, L3410.2400, L3200.1100, L3100.6900, L101.9900, L500.4050, L501.6710, L501.9985, L503.5510, L3200.0500, L5500.0410, L3100.5440, L3100.3425, L503.6150, L3300.0100, L3100.1850, L504.2610, L100.9950, L503.6550, L3400.0700, L3300.1800 ####[facility] [address] [place], [address] Hemoglobin A1c percentageOrd ered By: Quang Myles on 08-08-2024 HbA1c (Bld) [Mass fraction] 6.0 % High <5.7 [facility] Hemoglobin measurementOrdere d By: Quang Myles on 08-08-2024 Hemoglobin (Bld) [Mass/Vol] 14.7 g/dL 12.0-15.0 [facility] IgEOrdered By: Quang arciniega on 08-08-2024 IgE 122 IU/mL 6-495 [facility] Immature granulocytes/100 WB C Auto (Bld)Ordered By: uQang yMles on 08-08-2024 Immature granulocytes/100 WBC (Bld) 0.500 % 0.0-0.9 [facility] Interpretation of serum or p lasma protein pattern by immunofixation (narrative resultOrdered By: Quang Myles on 08-08-2024 Protein Fractions Immunofixation David [Interp] Not Observed g/dL Not Observed [facility] Ironon 08-08-2024 Iron [Mass/Vol] 75 ug/dL Normal 50-170 [facility] Comment on above: Performed By: #### L 3300.1200, L100.0100, L501.9520, L300.3900, L3410.2400, L3200.1100, L3100.6900, L101.9900, L500.4050, L501.6710, L501.9985, L503.5510, L3200.0500, L5500.0410, L3100.5440, L3100.3425, L503.6150, L3300.0100, L3100.1850, L504.2610, L100.9950, L503.6550, L3400.0700, L3300.1800 ####[facility] [address] [place], [address] Iron measurement (mass/mass) Ordered By: Quang Myles on 08-08-2024 Iron (Unsp spec) [Mass/Mass] 75 ug/dL 50-170 [facility] LDHon 08-08-2024 LDH 258 U/L High 84-246 [facility] Comment on above: Order Comment: 1 Performed By: #### L 3300.1200, L100.0100, L501.9520, L300.3900, L3410.2400, L3200.1100, L3100.6900, L101.9900, L500.4050, L501.6710, L501.9985, L503.5510, L3200.0500, L5500.0410, L3100.5440, L3100.3425, L503.6150, L3300.0100, L3100.1850, L504.2610, L100.9950, L503.6550, L3400.0700, L3300.1800 ####[facility] [address] [place], [address] Laboratory - Miscellaneous t estsOrdered By: Quang Myles on 08-08-2024 Service comment (Unsp spec) [Interp] Comment . [facility] MCV (mean corpuscular volume ) determinationOrdered By: Quang Myles on 08-08-2024 MCV (RBC) [Entitic vol] 95.9 fL 81-99 [facility] Mean corpuscular hemoglobin (MCH) determinationOrdered By: Quang Myles on 08-08-2024 MCH (RBC) [Entitic mass] 32.0 pg 27.0-32.0 [facility] Monocyte percentageOrdered B y: Quang Myles on 08-08-2024 Monocytes/100 WBC (Bld) 5.4 % 0-10 [facility] Neutrophil percentageOrdered By: Quang Myles on 08-08-2024 Neutrophils/100 WBC (Bld) 75.5 % High 47-70 [facility] No Panel InformationOrdered By: Quang Myles on 08-08-2024 Addendum Document Comment . [facility] 43 U/L High <32 [facility] Platelet countOrdered By: Ra treva Myles on 08-08-2024 Platelets (Bld) [#/Vol] 375 10*3/uL 150-450 [facility] Potassium measurement (mass/ volume)Ordered By: Quang Myles on 08-08-2024 Potassium (Unsp spec) [Mass/Vol] 4.2 mmol/L 3.3-5.1 [facility] Prothrombin Time w/INRon INR Coag (PPP) [Relative time] 1.0 {INR} Normal [facility] Comment on above: Performed By: #### L 3300.1200, L100.0100, L501.9520, L300.3900, L3410.2400, L3200.1100, L3100.6900, L101.9900, L500.4050, L501.6710, L501.9985, L503.5510, L3200.0500, L5500.0410, L3100.5440, L3100.3425, L503.6150, L3300.0100, L3100.1850, L504.2610, L100.9950, L503.6550, L3400.0700, L3300.1800 ####[facility] [address] [place], [address] PT Coag (PPP) [Time] 12.8 s Normal 11.7-14.9 [facility] Comment on above: Performed By: #### L 3300.1200, L100.0100, L501.9520, L300.3900, L3410.2400, L3200.1100, L3100.6900, L101.9900, L500.4050, L501.6710, L501.9985, L503.5510, L3200.0500, L5500.0410, L3100.5440, L3100.3425, L503.6150, L3300.0100, L3100.1850, L504.2610, L100.9950, L503.6550, L3400.0700, L3300.1800 ####[facility] [address] [place], [place], [id number] Prothrombin timeOrdered By: Quang Myles on 08-08-2024 PT Coag (PPP) [Time] 12.8 s 11.7-14.9 [facility] RBC Auto (Bld) [#/Vol]Ordere d By: Quang Myles on 08-08-2024 RBC (Bld) [#/Vol] 4.60 10*6/uL 4.2-5.4 [facility] Retic Panelon 08-08-2024 IM RET FRACTION 14.30 Normal 3.00-15.90 [facility] Comment on above: Performed By: #### L 3300.1200, L100.0100, L501.9520, L300.3900, L3410.2400, L3200.1100, L3100.6900, L101.9900, L500.4050, L501.6710, L501.9985, L503.5510, L3200.0500, L5500.0410, L3100.5440, L3100.3425, L503.6150, L3300.0100, L3100.1850, L504.2610, L100.9950, L503.6550, L3400.0700, L3300.1800 ####[facility] [address] [facility]. [place], [place], [address] RET-HE 34.4 pg Normal 30-35 [facility] Comment on above: Performed By: #### L 3300.1200, L100.0100, L501.9520, L300.3900, L3410.2400, L3200.1100, L3100.6900, L101.9900, L500.4050, L501.6710, L501.9985, L503.5510, L3200.0500, L5500.0410, L3100.5440, L3100.3425, L503.6150, L3300.0100, L3100.1850, L504.2610, L100.9950, L503.6550, L3400.0700, L3300.1800 ####[facility] [address] [facility] [place], [address] Retic Count 0.78 Normal 0.5-1.5 [facility] Comment on above: Performed By: #### L 3300.1200, L100.0100, L501.9520, L300.3900, L3410.2400, L3200.1100, L3100.6900, L101.9900, L500.4050, L501.6710, L501.9985, L503.5510, L3200.0500, L5500.0410, L3100.5440, L3100.3425, L503.6150, L3300.0100, L3100.1850, L504.2610, L100.9950, L503.6550, L3400.0700, L3300.1800 ####[facility] [address] [facility] [place], [address] Reticulocyte hemoglobin equi valent (RET-He) measurementOrdered By: Quang Myles on 08-08-2024 Hemoglobin (Reticulocytes) [Entitic mass] 34.4 pg 30-35 [facility] Reticulocytes Auto (Bld) [#/ Vol]Ordered By: Quang Shameka on 08-08-2024 Reticulocytes/100 RBC (Bld) 0.78 % 0.5-1.5 [facility] Serum DNA double strand anti body assay (units/volume)Ordered By: Quang Myles on 08-08-2024 DNA double strand Ab Qn (S) [IU]/mL 0-9 [facility] Serum IgG subclass 1 measure ment (mass/volume)Ordered By: Quang Shameka on 08-08-2024 IgG subclass 1 (S) [Mass/Vol] 509 mg/dL 248-810 [facility] Serum IgG subclass 2 measure ment (mass/volume)Ordered By: Quang Shameka on 08-08-2024 IgG subclass 2 (S) [Mass/Vol] 168 mg/dL 130-555 [facility] Serum IgG subclass 3 measure ment (mass/volume)Ordered By: Quang Myles on 08-08-2024 IgG subclass 3 (S) [Mass/Vol] 73 mg/dL 15-102 [facility] Serum Scl-70 antibody assay (units/volume)Ordered By: Quang Myles on 08-08-2024 SCL-70 extractable nuclear Ab Qn (S) TNP [facility] SCL-70 extractable nuclear Ab Qn (S) <0.2 AI 0.0-0.9 [facility] Serum black walnut IgE antib eliecer assay (units/volume)Ordered By: Quang Myles on 08-08-2024 [place] IgE Qn (S) <0.10 kU/L Class 0 [facility] Serum clam IgE antibody assa y (units/volume)Ordered By: Quang Myles on 08-08-2024 Clam IgE Qn (S) <0.10 kU/L Class 0 [facility] Serum classic neutrophil cyt oplasmic antibody assay (units/volume)Ordered By: Quang Myles on 08-08-2024 Neutrophil cytoplasmic Ab.classic Qn (S) <1:20 titer Neg:<1:20 [facility] Serum codfish IgE antibody a ssay (units/volume)Ordered By: Quang Myles on 08-08-2024 Codfish IgE Qn (S) <0.10 kU/L Class 0 [facility] Serum corn IgE antibody assa y (units/volume)Ordered By: Quang Myles on 08-08-2024 [place] IgE Qn (S) <0.10 kU/L Class 0 [facility] Serum cow milk IgE antibody assay (units/volume)Ordered By: Quang Myles on 08-08-2024 Cow milk IgE Qn (S) 0.24 kU/L High Class 0/I [facility] Serum creatinine measurement (mass/volume)Ordered By: Quang Myles on 08-08-2024 Creatinine [Mass/Vol] 0.71 mg/dL 0.70-1.20 [facility] Serum egg white IgE antibody assay (units/volume)Ordered By: Quang Myles on 08-08-2024 Egg white IgE Qn (S) <0.10 kU/L Class 0 [facility] Serum globulin measurement ( mass/volume)Ordered By: Quang Myles on 08-08-2024 Globulin (S) [Mass/Vol] 3.5 g/dL 2.2-3.9 [facility] Serum glucose measurement (m ass/volume)Ordered By: Quang Myles on 08-08-2024 Glucose [Mass/Vol] 93 mg/dL 70-99 [facility] Serum or plasma C reactive p rotein measurement (mass/volume)Ordered By: Quang Myles on 08-08-2024 CRP [Mass/Vol] 16.80 mg/L High 0.0-3.0 [facility] Serum or plasma IgA measurem ent (mass/volume)Ordered By: Quang Myles on 08-08-2024 IgA [Mass/Vol] 134 mg/dL 87-352 [facility] Serum or plasma IgG measurem ent (mass/volume)Ordered By: Quang Myles on 08-08-2024 IgG [Mass/Vol] 945 mg/dL 586-1602 [facility] IgG [Mass/Vol] Not Reportable [facility] Serum or plasma alanine hair otransferase (ALT) measurementOrdered By: Quang Myles on 08-08-2024 ALT [Catalytic activity/Vol] 37 U/L High <35 [facility] Serum or plasma albumin leslie urement (mass/volume)Ordered By: Quang Myles on 08-08-2024 Albumin [Mass/Vol] 3.9 g/dL 3.5-5.0 [facility] Serum or plasma albumin/glob ulin mass ratioOrdered By: Quang Myles on 08-08-2024 Albumin/Globulin [Mass ratio] 1.1 {ratio} 0.9-2.4 [facility] Serum or plasma alkaline delfin sphatase measurementOrdered By: Quang Myles on 08-08-2024 ALP [Catalytic activity/Vol] 155 U/L High 35-104 [facility] Serum or plasma alpha 1 glob ulin measurement by electrophoresis (mass/volume)Ordered By: Quang Myles on 08-08-2024 Alpha 1 globulin Elph [Mass/Vol] 0.2 g/dL 0.0-0.4 [facility] Alpha 1 globulin Elph [Mass/Vol] 1.1 g/dL High 0.4-1.0 [facility] Serum or plasma angiotensin converting enzyme measurement (enzymatic activity/volume)Ordered By: Quang Myles on 08-08-2024 Angiotensin converting enzyme [Catalytic activity/Vol] 62 U/L 14-82 [facility] Serum or plasma beta globuli n measurement by electrophoresis (mass/volume)Ordered By: Quang Myles on 08-08-2024 Beta globulin Elph [Mass/Vol] 1.2 g/dL 0.7-1.3 [facility] Serum or plasma calcium leslie urement (mass/volume)Ordered By: Quang Myles on 08-08-2024 Calcium [Mass/Vol] 9.7 mg/dL 7.6-11.0 [facility] Serum or plasma ferritin janet surement (mass/volume)Ordered By: Quang Myles on 08-08-2024 Ferritin [Mass/Vol] 216 ng/mL 22-378 [facility] Serum or plasma gamma globul in measurement by electrophoresis (mass/volume)Ordered By: Quang Myles on 08-08-2024 Gamma globulin Elph [Mass/Vol] 1.0 g/dL 0.4-1.8 [facility] Serum or plasma immunoelectr ophoresis interpretation (nominal result)Ordered By: Quang Myles on 08-08-2024 Interpretation IEP [Interp] Comment . [facility] Serum or plasma protein leslie urement (mass/volume)Ordered By: Quang Myles on 08-08-2024 Protein [Mass/Vol] 6.9 g/dL 6.0-8.5 [facility] Serum or plasma urea nitroge n measurement (mass/volume)Ordered By: Quang Myles on 08-08-2024 Urea nitrogen [Mass/Vol] 9 mg/dL 4-19 [facility] Serum peanut IgE antibody as say (units/volume)Ordered By: Quang Myles on 08-08-2024 Peanut IgE Qn (S) <0.10 kU/L Class 0 [facility] Serum perinuclear neutrophil cytoplasmic antibody titer by immunofluorescenceOrdered By: Quang Myles on 08-08-2024 Neutrophil cytoplasmic Ab.perinuclear IF (S) [Titer] <1:20 titer Neg:<1:20 [facility] Serum soybean IgE antibody a ssay (units/volume)Ordered By: Quang Myles on 08-08-2024 Soybean IgE Qn (S) <0.10 kU/L Class 0 [facility] Serum tissue transglutaminas e (tTG) IgA antibody assay (units/volume)Ordered By: Quang Myles on 08-08-2024 tTG IgA Qn (S) <2 U/mL 0-3 [facility] Serum wheat IgE antibody ass ay (units/volume)Ordered By: Quang Myles on 08-08-2024 Wheat IgE Qn (S) <0.10 kU/L Class 0 [facility] Sodium levelOrdered By: Wendy Au on 08-08-2024 Sodium [Moles/Vol] 138 mmol/L 133-145 [facility] TSH DL <= 0.005 mIU/L QnOrde red By: Quang Myles on 08-08-2024 TSH Qn 2.360 uIU/mL 0.300-4.20 0 [facility] Thyroid Stim Hormone (TSH)on 08-08-2024 TSH 2.360 uIU/mL Normal 0.300-4.20 0 [facility] Comment on above: Performed By: #### L 3300.1200, L100.0100, L501.9520, L300.3900, L3410.2400, L3200.1100, L3100.6900, L101.9900, L500.4050, L501.6710, L501.9985, L503.5510, L3200.0500, L5500.0410, L3100.5440, L3100.3425, L503.6150, L3300.0100, L3100.1850, L504.2610, L100.9950, L503.6550, L3400.0700, L3300.1800 ####[facility] [address] [place], [address] Total proteinOrdered By: Luis Myles on 08-08-2024 Protein [Mass/Vol] 7.3 g/dL 5.9-8.4 [facility] Venous blood ammonia measure mentOrdered By: Quang Myles on 08-08-2024 Ammonia (P) [Moles/Vol] 36.2 umol/L 11-51 [facility] White blood cell (WBC) count Ordered By: Quang Myles on 08-08-2024 WBC (Bld) [#/Vol] 9.2 10*3/uL 4.4-11.0 [facility] Basic metabolic 2000 panelon 07-27-2024 Anion gap [Moles/Vol] 13 mmol/L Normal 8-15 [facility] Comment on above: Order Comment: Speci men Type: BLOOD SPECIMEN Ordering Facility: [facility] Address: [address] [place] [address] Performed By: #### 1 9123-9, 54085-1 #### [facility] CLIA [id number] [address] [place] [address] [place] Calcium [Mass/Vol] 10.3 mg/dL High 8.5-10.2 [facility] Comment on above: Order Comment: Speci men Type: BLOOD SPECIMEN Ordering Facility: [facility] Address: [address] [place] [address] Performed By: #### 1 9123-9, 87252-2 #### [facility] CLIA [id number] [address] [place] [address] [place] Chloride [Moles/Vol] 98 mmol/L Normal 98-107 [facility] Comment on above: Order Comment: Speci men Type: BLOOD SPECIMEN Ordering Facility: [facility] Address: [address] [place] [address] Performed By: #### 1 9123-9, 34126-6 #### [facility] CLIA [id number] [address] [place] [address] [place] CO2 [Moles/Vol] 23 mmol/L Normal 22-30 [facility] Comment on above: Order Comment: Speci men Type: BLOOD SPECIMEN Ordering Facility: [facility] Address: [address] [place] [address] Performed By: #### 1 9123-9, 58356-6 #### [facility] CLIA [id number] [address] [place] [address] [place] Creatinine [Mass/Vol] 0.88 mg/dL Normal 0.58-0.96 [facility] Comment on above: Order Comment: Speci men Type: BLOOD SPECIMEN Ordering Facility: [facility] Address: [address] [place] [address] Performed By: #### 1 9123-9, 03785-9 #### [facility] CLIA [id number] [address] [place] [address] [place] Creatinine and Glomerular filtration rate.predicted panel (S/P/Bld) 83 mL/min/1.73m??? Normal >=60 [facility] Comment on above: Order Comment: Speci men Type: BLOOD SPECIMEN Ordering Facility: [facility] Address: [address] [place] [address] Result Comment: Vidal mated Glomerular Filtration Rate [...] actual GFR. Performed By: #### 1 9123-9, 92557-4 #### [facility] CLIA [id number] [address] [place] [address] [place] Glucose [Mass/Vol] 84 mg/dL Normal 74-99 [facility] Comment on above: Order Comment: David horton Type: BLOOD SPECIMEN Ordering Facility: [facility] Address: [address] [place] [address] Result Comment: The [place] [employer] (ADA) provides guidance for cutoff [...] Standards of Medical Care in Diabetes 2016, [place] [employer]. Diabetes Care. 2016.39(Suppl 1). Performed By: #### 1 9123-9, 95995-0 #### [facility] CLIA [id number] [address] [place] [address] [place] Potassium [Moles/Vol] 5.4 mmol/L High 3.7-5.1 [facility] Comment on above: Order Comment: David horton Type: BLOOD SPECIMEN Ordering Facility: [facility] Address: [address] [place] [address] Performed By: #### 1 9123-9, 01425-2 #### [facility] CLIA [id number] [address] [place] [address] [place] Sodium [Moles/Vol] 134 mmol/L Low 136-144 [facility] Comment on above: Order Comment: Speci men Type: BLOOD SPECIMEN Ordering Facility: [facility] Address: [address] [place] [address] Performed By: #### 1 9123-9, 03061-9 #### [facility] CLIA [id number] [address] [place] [address] [place] Urea nitrogen [Mass/Vol] 25 mg/dL High 7-21 [facility] Comment on above: Order Comment: Speci men Type: BLOOD SPECIMEN Ordering Facility: [facility] Address: [address] [place] [address] Performed By: #### 1 9123-9, 32966-9 #### [facility] CLIA [id number] [address] [place] [address] [place] CBC panel Auto (Bld)on 07-27 Erythrocyte distribution width (RBC) [Ratio] 14.0 % Normal 11.5-15.0 [facility] Comment on above: Order Comment: Speci men Type: BLOOD SPECIMEN Ordering Facility: [facility] Address: [address] [place] [address] Performed By: #### 5 8410-2 #### [facility] CLIA [id number] [address] [place] [address] [place] Hematocrit (Bld) [Volume fraction] 55.3 % High 36.0-46.0 [facility] Comment on above: Order Comment: Speci men Type: BLOOD SPECIMEN Ordering Facility: [facility] Address: [address] [place] [address] Performed By: #### 5 8410-2 #### [facility] CLIA [id number] [address] [place] [address] [place] Hemoglobin (Bld) [Mass/Vol] 18.1 g/dL High 11.5-15.5 [facility] Comment on above: Order Comment: Speci men Type: BLOOD SPECIMEN Ordering Facility: [facility] Address: [address] [place] [address] Performed By: #### 5 8410-2 #### [facility] CLIA [id number] [address] [place] [address] [place] MCH (RBC) [Entitic mass] 31.5 pg Normal 26.0-34.0 [facility] Comment on above: Order Comment: Speci men Type: BLOOD SPECIMEN Ordering Facility: [facility] Address: [address] [place] [address] Performed By: #### 5 8410-2 #### [facility] CLIA [id number] [address] [place] [address] [place] MCHC (RBC) [Mass/Vol] 32.7 g/dL Normal 30.5-36.0 [facility] Comment on above: Order Comment: Speci men Type: BLOOD SPECIMEN Ordering Facility: [facility] Address: [address] [place] [address] Performed By: #### 5 8410-2 #### [facility] CLIA [id number] [address] [place] [address] [place] MCV (RBC) [Entitic vol] 96.3 fL Normal 80.0-100.0 [facility] Comment on above: Order Comment: Speci men Type: BLOOD SPECIMEN Ordering Facility: [facility] Address: [address] [place] [address] Performed By: #### 5 8410-2 #### [facility] CLIA [id number] [address] [place] [address] [place] Nucleated RBC (Bld) [#/Vol] 10*3/uL Normal <0.01 [facility] Comment on above: Order Comment: Speci men Type: BLOOD SPECIMEN Ordering Facility: [facility] Address: [address] [place], [place] [address] Performed By: #### 5 8410-2 #### [facility] CLIA [id number] [address] [place] [address] [place] Platelet mean volume (Bld) [Entitic vol] 9.5 fL Normal 9.0-12.7 [facility] Comment on above: Order Comment: Speci men Type: BLOOD SPECIMEN Ordering Facility: [facility] Address: [address] [place] [address] Performed By: #### 5 8410-2 #### [facility] CLIA [id number] [address] [place] [address] [place] Platelets (Bld) [#/Vol] 385 10*3/uL Normal 150-400 [facility] Comment on above: Order Comment: Speci men Type: BLOOD SPECIMEN Ordering Facility: [facility] Address: [address] [place] [address] Performed By: #### 5 8410-2 #### [facility] CLIA [id number] [address] [place] [address] [place] RBC (Bld) [#/Vol] 5.74 10*6/uL High 3.90-5.20 [facility] Comment on above: Order Comment: Speci men Type: BLOOD SPECIMEN Ordering Facility: [facility] Address: [address] [place] [address] Performed By: #### 5 8410-2 #### [facility] CLIA [id number] [address] [place] [address] [place] WBC (Bld) [#/Vol] 12.54 10*3/uL High 3.70-11.00 [facility] Comment on above: Order Comment: Speci men Type: BLOOD SPECIMEN Ordering Facility: [facility] Address: [address] [place] [address] Performed By: #### 5 8410-2 #### [facility] CLIA [id number] [address] OF [facility] CNDSon 07-27-2024 [facility] HNO ID: [id number] Author: CASE FONSECA MD Service: Cardiovascular Medicine Author Type: Physician Ditching Machine Operator Type: Discharge Summary Filed: 08/08/2024 18:58 Note Text: -------- Attestation signed by Case Fonseca MD at 08/08/2024 6:58 PM As above -------- Department of Cardiovascular Medicine Discharge Summary (Template ID [id number]) PATIENT NAME: Michelle Mitchell ADMISSION DATE: 07/24/2024 [...] of lower extremity Yes Current use of longterm anticoagulation Yes Insomnia Yes Heart valve vegetation [...] display. Reason for Hospitalization: Patient transferred to [facility] from [place] for concerns for ADHF and hx of [...] follow up with her local PCP and operator specialist communications in [place]. Consults: Infectious Disease, Electrophysiology, and Psychiatry Major [...] Other: See Comments suicidal ideations Azithromycin Intolerance [place] Anaphylaxis [place] Anaphylaxis pickles Fish Anaphylaxis Levofloxacin In D5w [...] Your Medications These medications were sent to [id number] - [place] [address] [address] [facility] - [phone] [place] [address] metoprolol succinate ER 25 mg 24 hr tablet Transitions of Care Critical Issues: Outpatient Management: * Are there important medication changes and/or outstanding issues that need to be addressed: See Above * What is the plan for follow up: Follow up with local PCP and operator specialist communications in [place] Future Appointments: No future appointments. Highest Readmis (more content not included)... Normal [facility] Culture, Blood (WB)on 2024 CUB No growth in 5 days. Normal [facility] Comment on above: Performed By: #### M 200.1000 ####[facility] [id number] [place], [place], [address] Magnesium SerPl-mCncon 07-27 Magnesium [Mass/Vol] 2.3 mg/dL Normal 1.7-2.3 [facility] Comment on above: Order Comment: Speci men Type: BLOOD SPECIMEN Ordering Facility: [facility] Address: [address] [place] [address] Performed By: #### 1 9123-9, 44219-7 #### [facility] CLIA [id number] [address] [place] [address] [place] PT EDon 07-27-2024 PT ED HNO ID: [id number] Author: IRLANDA MOORE RPh Service: Pharmacy Author [...] FURTHER RECOMMENDATIONS (IF ANY): n/a Irlanda Moore [facility] PAGER: [phone] [facility] ED HNO ID: [id number] Author: JARVIS PALOMINO DTR Service: Nutrition Therapy Author Type: Phlebotomist Associate Type: Patient Education Filed: 07/27/2024 08:38 Note [...] July 27, 2024 TIME: 8:38 AM PAGER: Normal [facility] 07-26-2024 [facility] HNO ID: [id number] Author: HARITHA GOMEZ Art Therapist Service: Art [...] 26, 2024 TIME: 4:40 PM PAGER/CONTACT #: [phone] Normal [facility] Basic metabolic 2000 panelon 07-26-2024 Anion gap [Moles/Vol] 14 mmol/L Normal 8-15 [facility] Comment on above: Order Comment: Speci men Type: BLOOD SPECIMEN Ordering Facility: [facility] Address: [address] [place] [address] Performed By: #### 1 9123-9, 09839-7 #### [facility] CLIA [id number] [address] [place] [address] [place] Calcium [Mass/Vol] 9.4 mg/dL Normal 8.5-10.2 [facility] Comment on above: Order Comment: Speci men Type: BLOOD SPECIMEN Ordering Facility: [facility] Address: [address] [place] [address] Performed By: #### 1 9123-9, 97905-3 #### [facility] CLIA [id number] [address] [place] [address] [place] Chloride [Moles/Vol] 98 mmol/L Normal 98-107 [facility] Comment on above: Order Comment: Speci men Type: BLOOD SPECIMEN Ordering Facility: [facility] Address: [address] [place] [address] Performed By: #### 1 9123-9, 06407-2 #### [facility] CLIA [id number] [address] [place], [place] [address] [place] CO2 [Moles/Vol] 24 mmol/L Normal 22-30 [facility] Comment on above: Order Comment: Speci men Type: BLOOD SPECIMEN Ordering Facility: [facility] Address: [address] [place] [address] Performed By: #### 1 9123-9, 00375-3 #### [facility] CLIA [id number] [address] [place] [address] [place] Creatinine [Mass/Vol] 1.02 mg/dL High 0.58-0.96 [facility] Comment on above: Order Comment: Speci men Type: BLOOD SPECIMEN Ordering Facility: [facility] Address: [address] [place] [address] Performed By: #### 1 9123-9, 30493-6 #### [facility] CLIA [id number] [address] [place] [address] [place] Creatinine and Glomerular filtration rate.predicted panel (S/P/Bld) 70 mL/min/1.73m??? Normal >=60 [facility] Comment on above: Order Comment: Speci men Type: BLOOD SPECIMEN Ordering Facility: [facility] Address: [address] [place] [address] Result Comment: Vidal mated Glomerular Filtration Rate [...] actual GFR. Performed By: #### 1 9123-9, 52331-5 #### [facility] CLIA [id number] [address] [place], [place] [address] [place] Glucose [Mass/Vol] 98 mg/dL Normal 74-99 [facility] Comment on above: Order Comment: David horton Type: BLOOD SPECIMEN Ordering Facility: [facility] Address: [address] [place] [address] Result Comment: The [place] Diabetes [employer] (ADA) provides guidance for cutoff [...] Standards of Medical Care in Diabetes 2016, [place] [employer]. Diabetes Care. 2016.39(Suppl 1). Performed By: #### 1 9123-9, 63170-7 #### [facility] CLIA [id number] [address] [place] [address] [place] Potassium [Moles/Vol] 4.5 mmol/L Normal 3.7-5.1 [facility] Comment on above: Order Comment: David horton Type: BLOOD SPECIMEN Ordering Facility: [facility] Address: [address] [place] [address] Performed By: #### 1 9123-9, 03606-6 #### [facility] CLIA [id number] [address] [place] [address] [place] Sodium [Moles/Vol] 136 mmol/L Normal 136-144 [facility] Comment on above: Order Comment: David horton Type: BLOOD SPECIMEN Ordering Facility: [facility] Address: [address] [place] [address] Performed By: #### 1 9123-9, 83626-3 #### [facility] CLIA [id number] [address] [place] [address] [place] Urea nitrogen [Mass/Vol] 29 mg/dL High 7-21 [facility] Comment on above: Order Comment: Speci men Type: BLOOD SPECIMEN Ordering Facility: [facility] Address: [address] [place] [address] Performed By: #### 1 9123-9, 81090-0 #### [facility] CLIA [id number] [address] [place] [address] [place] CBC panel Auto (Bld)on 07-26 Erythrocyte distribution width (RBC) [Ratio] 14.1 % Normal 11.5-15.0 [facility] Comment on above: Order Comment: Speci men Type: BLOOD SPECIMEN Ordering Facility: [facility] Address: [address] [place] [address] Performed By: #### 5 8410-2 #### [facility] CLIA [id number] [address] [place] [address] [place] Hematocrit (Bld) [Volume fraction] 50.7 % High 36.0-46.0 [facility] Comment on above: Order Comment: Speci men Type: BLOOD SPECIMEN Ordering Facility: [facility] Address: [address] [place] [address] Performed By: #### 5 8410-2 #### [facility] CLIA [id number] [address] [place] [address] [place] Hemoglobin (Bld) [Mass/Vol] 16.3 g/dL High 11.5-15.5 [facility] Comment on above: Order Comment: Speci men Type: BLOOD SPECIMEN Ordering Facility: [facility] Address: [address] [place] [address] Performed By: #### 5 8410-2 #### [facility] CLIA [id number] [address] [place] [address] [place] MCH (RBC) [Entitic mass] 31.3 pg Normal 26.0-34.0 [facility] Comment on above: Order Comment: Speci men Type: BLOOD SPECIMEN Ordering Facility: [facility] Address: [address] [place], [place] [address] Performed By: #### 5 8410-2 #### [facility] CLIA [id number] [address] [place] [address] [place] MCHC (RBC) [Mass/Vol] 32.1 g/dL Normal 30.5-36.0 [facility] Comment on above: Order Comment: Speci men Type: BLOOD SPECIMEN Ordering Facility: [facility] Address: [address] [place] [address] Performed By: #### 5 8410-2 #### [facility] CLIA [id number] [address] [place] [address] [place] MCV (RBC) [Entitic vol] 97.3 fL Normal 80.0-100.0 C [facility] Comment on above: Order Comment: Speci men Type: BLOOD SPECIMEN Ordering Facility: [facility] Address: [address] [place] [address] Performed By: #### 5 8410-2 #### [facility] CLIA [id number] [address] [place] [address] [place] Nucleated RBC (Bld) [#/Vol] 10*3/uL Normal <0.01 [facility] Comment on above: Order Comment: Speci men Type: BLOOD SPECIMEN Ordering Facility: [facility] Address: [address] [place] [address] Performed By: #### 5 8410-2 #### [facility] CLIA [id number] [address] [place] [address] [place] Platelet mean volume (Bld) [Entitic vol] 9.8 fL Normal 9.0-12.7 [facility] Comment on above: Order Comment: Speci men Type: BLOOD SPECIMEN Ordering Facility: [facility] Address: [address] [place] [address] Performed By: #### 5 8410-2 #### [facility] CLIA [id number] [address] [place] [address] [place] Platelets (Bld) [#/Vol] 344 10*3/uL Normal 150-400 [facility] Comment on above: Order Comment: Speci men Type: BLOOD SPECIMEN Ordering Facility: [facility] Address: [address] [place] [address] Performed By: #### 5 8410-2 #### [facility] CLIA [id number] [address] [place] [address] [place] RBC (Bld) [#/Vol] 5.21 10*6/uL High 3.90-5.20 [facility] Comment on above: Order Comment: Speci men Type: BLOOD SPECIMEN Ordering Facility: [facility] Address: [address] [place] [address] Performed By: #### 5 8410-2 #### [facility] CLIA [id number] [address] [place] [address] [place] WBC (Bld) [#/Vol] 15.07 10*3/uL High 3.70-11.00 [facility] Comment on above: Order Comment: Speci men Type: BLOOD SPECIMEN Ordering Facility: [facility] Address: [address] [place] [address] Performed By: #### 5 8410-2 #### [facility] CLIA [id number] [address] [place] [address] [place] CNOVon 07-26-2024 CNOV Office Visit ([facility] ) -------- MICHELLE MITCHELL ([id number]) 1980 F Date Time Provider Department 07/26/24 8:15 AM [facility] J-2 [facility] During your visit today, we recorded the following information about you: Referring Provider: TEJAL RODRÍGUEZ [[id number]] Allergies As of Date: 07/26/2024 Noted Allergy [...] [Z85.41] 07/12 (more content not included)... Normal [facility] CNOV Office Visit ([facility] ) -------- MICHELLE MITCHELL ([id number]) 1980 F Date Time Provider Department 07/26/24 8:00 AM [facility] J-2 [place] During your visit today, we recorded the following information about you: Referring Provider: TEJAL RODRÍGUEZ [[id number]] Allergies As of Date: 07/26/2024 Noted Allergy [...] [Z85.41] 07/12 (more content not included)... Normal [facility] CONSULTon 07-26-2024 CONSULT HNO ID: [id number] Author: NEISAH PINA MD Service: Vascular Medicine Author Type: [...] nausea, facial swelling. She was seen in [place] ED twice and was discharged home. She was then advised to go to [facility] and was admitted on 07/04/2024. Per GI [...] duodenum. 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 At present, patient is being treated for heart failure exacerbation and also being worked up by ID. Prior VTE history (personal/ family) Per chart review, patient had several presentations to ED due to chest pain for the last 2 years. In 2016, she went to [facility] ED with chest pain and further workup revealed acute PE in the right lower lobe diagnosed on 11/29/2016. She was then discharged on Xarelto. Due to intermittent episodes of severe chest pain, she ended up getting CT chest every month to reevaluate pulmonary artery. She then followed up with Dr. Armstrong (Hem/Onc) who recommeded longterm AC due to uprovoked PE. Xarelto was [...] BRCA mutation checked while she was in [place]. FAMILY HISTORY: family history includes Breast Cancer [...] Other: See Comments suicidal ideations Azithromycin Intolerance [place] Anaphylaxis [place] Anaphylaxis pickles Fish Anaphylaxis Levofloxacin In D5w [...] screening done (more content not included)... Normal [facility] CONSULT PROGon 07-26-2024 CONSULT PROG HNO ID: [id number] Author: ROSAMARIA HAJI MD Service: Electrophysiology Author [...] found for the last 365 days. Normal [facility] CONSULT PROG HNO ID: [id number] Author: DAINA MCPHERSON MD Service: Infectious Disease [...] primary team. 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1980 Requested By: Order Number: [id number] [...] 11:31:34 EDT by Dex Ch MD ID: [id number] Name: MICHELLE MITCHELL Race: White Ht: 63.15 [...] FIF50 4.29 FEF50/FIF50 0.36 90-100 FIVC 2.81 ZOK57-63 1.16 1.71 2.91 4.40 39 -2.58 ExpiredTime [...] 82 % FEV1/FVC_LLN (%) : 71 % GMP45_EWY (L/S) : 3.39 L/S JBS07_JWR (L/S) : 0.45 L/S ISW33_YOSU (L/S) : 1.04 L/S EJD16_QVP (L/S) : 0.48 L/S LBD49_QBV (L/S) : 2.06 L/S KEB86-48%_PRE (L/S) : 1.16 L/S HAH26-11%_PRED (L/S) : 2.91 L/S NYJ17-36%_LLN (L/S) : 1.71 L/S PEF_PRE (L/S) : [...] ml/min/mmHg DLCO/VACOR (ML/MIN/MMHG/L) : 0.04 ml/min/mmHg/L Normal [facility] Magnesium SerPl-mCncon 07-26 Magnesium [Mass/Vol] 2.3 mg/dL Normal 1.7-2.3 [facility] Comment on above: Order Comment: Speci men Type: BLOOD SPECIMEN Ordering Facility: [facility] Address: [address] [place] [address] Performed By: #### 1 9123-9, 61365-7 #### [facility] CLIA [id number] [address] [place] [address] [place] [address] [place] PTT, ANTICOAGULANT THERAPYon 07-26-2024 aPTT Coag (PPP) [Time] 26.1 s Normal 23.0-32.4 [facility] Comment on above: Order Comment: Speci men Type: BLOOD SPECIMENOrdering Facility: [facility] Address: [address] [place] [address] Performed By: #### P TTAC ####[facility] [id number] [place] [address] [place] aPTT Coag (PPP) [Time] 94.8 s High 23.0-32.4 [facility] Comment on above: Order Comment: Speci men Type: BLOOD SPECIMEN Ordering Facility: [facility] Address: [address] [place] [address] Performed By: #### 5 8410-2 #### [facility] CLIA [id number] [address] [place] [address] aPTT Coag (PPP) [Time] 64.9 s High 23.0-32.4 [facility] Comment on above: Order Comment: Speci men Type: BLOOD SPECIMENOrdering Facility: [facility] Address: [address] [place] [address] Performed By: #### P TTAC ####[facility] [id number] [address] OF [place] SPIROMETRY BASELINE ONLYon 0 07-26-2024 SPIROMETRY BASELINE ONLY [facility] [address] [facility] [address] [place] [address] Test Date: 2024-07-26 Pat Name: MICHELLE MITCHELL Department: Room: [place] [address] Gender: Female 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1980 Requested By: Order Number: [id number] [...] 11:31:34 EDT by Dex Ch MD ID: [id number] Name: MICHELLE MITCHELL Race: White Ht: 63.15 [...] FIF50 4.29 FEF50/FIF50 0.36 90-100 FIVC 2.81 HYF40-57 1.16 1.71 2.91 4.40 39 -2.58 ExpiredTime [...] obtained from [facility] on 07/26/2024.//KJ Normal [facility] Basic metabolic 2000 panelon 07-25-2024 Anion gap [Moles/Vol] 11 mmol/L Normal 8-15 [facility] Comment on above: Order Comment: Speci men Type: BLOOD SPECIMEN Ordering Facility: [facility] Address: [address] [place] [address] Performed By: #### 5 8410-2 #### [facility] CLIA [id number] [address] [place], [place] [address] [place] Calcium [Mass/Vol] 9.8 mg/dL Normal 8.5-10.2 [facility] Comment on above: Order Comment: Speci men Type: BLOOD SPECIMEN Ordering Facility: [facility] Address: [address] [place] [address] Performed By: #### 5 8410-2 #### [facility] CLIA [id number] [address] [place] [address] [place] Chloride [Moles/Vol] 97 mmol/L Low 98-107 [facility] Comment on above: Order Comment: Speci men Type: BLOOD SPECIMEN Ordering Facility: [facility] Address: [address] [place] [address] Performed By: #### 5 8410-2 #### [facility] CLIA [id number] [address] [place] [address] [place] CO2 [Moles/Vol] 27 mmol/L Normal 22-30 [facility] Comment on above: Order Comment: Speci men Type: BLOOD SPECIMEN Ordering Facility: [facility] Address: [address] [place] [address] Performed By: #### 5 8410-2 #### [facility] CLIA [id number] [address] [place] [address] [place] Creatinine [Mass/Vol] 1.10 mg/dL High 0.58-0.96 [facility] Comment on above: Order Comment: Speci men Type: BLOOD SPECIMEN Ordering Facility: [facility] Address: [address] [place] [address] Performed By: #### 5 8410-2 #### [facility] CLIA [id number] [address] [place] [address] [place] Creatinine and Glomerular filtration rate.predicted panel (S/P/Bld) 64 mL/min/1.73m??? Normal >=60 [facility] Comment on above: Order Comment: David horton Type: BLOOD SPECIMEN Ordering Facility: [facility] Address: [address] [place] [address] Result Comment: Vidal mated Glomerular Filtration Rate [...] GFR. Performed By: #### 5 8410-2 #### [facility] CLIA [id number] [address] [place] [address] [place] Glucose [Mass/Vol] 81 mg/dL Normal 74-99 [facility] Comment on above: Order Comment: David horton Type: BLOOD SPECIMEN Ordering Facility: [facility] Address: [address] [place] [address] Result Comment: The [place] Diabetes [employer] (ADA) provides guidance for cutoff [...] Standards of Medical Care in Diabetes 2016, [place] [employer]. Diabetes Care. 2016.39(Suppl 1). Performed By: #### 5 8410-2 #### [facility] CLIA [id number] [address] [place] [address] [place] [place] Potassium [Moles/Vol] 5.2 mmol/L High 3.7-5.1 [facility] Comment on above: Order Comment: Speci men Type: BLOOD SPECIMEN Ordering Facility: [facility] Address: [address] [place] [address] Performed By: #### 5 8410-2 #### [facility] CLIA [id number] [address] [place] [address] [place] Sodium [Moles/Vol] 135 mmol/L Low 136-144 [facility] Comment on above: Order Comment: Speci men Type: BLOOD SPECIMEN Ordering Facility: [facility] Address: [address] [place] [address] Performed By: #### 5 8410-2 #### [facility] CLIA [id number] [address] [place] [address] [place] Urea nitrogen [Mass/Vol] 31 mg/dL High 7-21 [facility] Comment on above: Order Comment: Speci men Type: BLOOD SPECIMEN Ordering Facility: [facility] Address: [address] [place] [address] Performed By: #### 5 8410-2 #### [facility] CLIA [id number] [address] [place] [address] [place] CBC panel Auto (Bld)on 07-25 Erythrocyte distribution width (RBC) [Ratio] 14.0 % Normal 11.5-15.0 [facility] Comment on above: Order Comment: Speci men Type: BLOOD SPECIMENOrdering Facility: [facility] Address: [address] [place] [address] Performed By: #### 5 8410-2 ####[facility] [id number] [place] [address] [place] Hematocrit (Bld) [Volume fraction] 50.1 % High 36.0-46.0 [facility] Comment on above: Order Comment: Speci men Type: BLOOD SPECIMENOrdering Facility: [facility] Address: [address] [place] [address] Performed By: #### 5 8410-2 ####[facility]IA [id number] [place] [address] [place] Hemoglobin (Bld) [Mass/Vol] 16.0 g/dL High 11.5-15.5 [facility] Comment on above: Order Comment: Speci men Type: BLOOD SPECIMENOrdering Facility: [facility] Address: [address] [place] [address] Performed By: #### 5 8410-2 ####[facility] [id number] [place] [address] [place] MCH (RBC) [Entitic mass] 31.1 pg Normal 26.0-34.0 [facility] Comment on above: Order Comment: Speci men Type: BLOOD SPECIMENOrdering Facility: [facility] Address: [address] [place] [address] Performed By: #### 5 8410-2 ####[facility] [id number] [place] [address] [place] MCHC (RBC) [Mass/Vol] 31.9 g/dL Normal 30.5-36.0 [facility] Comment on above: Order Comment: Speci men Type: BLOOD SPECIMENOrdering Facility: [facility] Address: [address] [place] [address] Performed By: #### 5 8410-2 ####[facility] [id number] [place] [address] [place] MCV (RBC) [Entitic vol] 97.5 fL Normal 80.0-100.0 [facility] Comment on above: Order Comment: Speci men Type: BLOOD SPECIMENOrdering Facility: [facility] Address: [address] [place] [address] Performed By: #### 5 8410-2 ####[facility] [id number] [address] [address] [place] Nucleated RBC (Bld) [#/Vol] 10*3/uL Normal <0.01 [facility] Comment on above: Order Comment: Speci men Type: BLOOD SPECIMENOrdering Facility: [facility] Address: [address] [place] [address] Performed By: #### 5 8410-2 ####[facility]IA [id number] [address], [place] [address] [place] Platelet mean volume (Bld) [Entitic vol] 10.4 fL Normal 9.0-12.7 [facility] Comment on above: Order Comment: Speci men Type: BLOOD SPECIMENOrdering Facility: [facility] Address: [address] [place] [address] Performed By: #### 5 8410-2 ####[facility] [id number] [place] [address] [place] Platelets (Bld) [#/Vol] 386 10*3/uL Normal 150-400 [facility] Comment on above: Order Comment: Speci men Type: BLOOD SPECIMENOrdering Facility: [facility] Address: [address] [place] [address] Performed By: #### 5 8410-2 ####[facility] [id number] [place] [address] [place] RBC (Bld) [#/Vol] 5.14 10*6/uL Normal 3.90-5.20 [facility] Comment on above: Order Comment: Speci men Type: BLOOD SPECIMENOrdering Facility: [facility] Address: [address] [place] [address] Performed By: #### 5 8410-2 ####[facility]IA [id number] [address] [place] [address] [place] WBC (Bld) [#/Vol] 21.49 10*3/uL High 3.70-11.00 [facility] Comment on above: Order Comment: Speci men Type: BLOOD SPECIMENOrdering Facility: [facility] Address: [address] [place] [address] Performed By: #### 5 8410-2 ####[facility] [id number] [facility] [address] OF [place] CNOVon 07-25-2024 CNOV Office Visit (CAFLMN ) -------- MICHELLE MITCHELL ([id number]) 1980 F Date Time Provider Department 07/25/24 [...] In Department: CARDIOLOGY Referring Provider: TEJAL RODRÍGUEZ [[id number]] Allergies As of Date: 07/25/2024 Noted Allergy [...] pain [R10.31] (more content not included)... Normal [facility] CONSULTon 07-25-2024 CONSULT HNO ID: [id number] Author: RADU RIVERS MD Service: Cardiovascular Medicine [...] PERMANENT TRANSVENOUS PACEMAKER INSERTION 2006 ICD implant, [facility] ANESTHESIA TUBAL LIGATION/TRANSECTION APPENDECTOMY 05/05/2014 , lap [...] suicidal ideations Ativan [Lorazepam] Vomiting Azithromycin Intolerance [place] Anaphylaxis [place] Anaphylaxis pickles Fish Anaphylaxis Levofloxacin In D5w Swelling, Itching IV site swollen, ceased after d/c, redness and itching at site Neurontin [Gabapent* Mental Status Change Shellfish Anaphylaxis Tigan [Trimethobenz* Anaphylaxis Ultram [Tramadol] Hives Pt states she also pukes a lot Vicod (more content not included)... Normal [facility] ECG COMPLETEon 07-25-2024 ECG COMPLETE Ventricular Rate : 6 6 BPM Atrial Rate : 66 BPM P-R Interval : 156 ms QRS Duration : 86 ms Q-T Interval : 414 ms QTC Calculation(Bazett) : 434 ms Calculated P Morganza : 18 degrees Calculated R Morganza : -73 degrees Calculated T Morganza : 73 degrees NORMAL SINUS RHYTHM BIATRIAL ENLARGEMENT LEFT ANTERIOR FASCICULAR BLOCK LEFT VENTRICULAR HYPERTROPHY ( [place] product , Romhilt-Sheets ) ST & LATERAL T WAVE ABNORMALITY ABNORMAL ECG Confirmed by HIPOLITO DAVIS MD ([id number]) on 08/18/2024 10:33:24 PM NAME : MICHELLE MITCHELL PID : [id number] : 1980 Gender : Female Race : ORD : [id number] Procedure Date : Jul 25 2024 09:39:38 Edit Date : Aug 18 2024 22:33:30 Diagnosis: NORMAL SINUS RHYTHM BIATRIAL ENLARGEMENT LEFT ANTERIOR FASCICULAR BLOCK LEFT VENTRICULAR HYPERTROPHY ( Sunny product , Romhilt-Sheets ) ST & LATERAL T WAVE ABNORMALITY ABNORMAL ECG Confirmed by HIPOLITO DAVIS MD ([id number]) on 08/18/2024 10:33:24 PM Test Reason : Chest Pain Location : 353 : J53 J053-11 Overread By : HIPOLITO DAVIS MD Edited By : HIPOLITO DAVIS MD Referred By : MERCY BISHOP Acquired by : INGRID ANGELA [facility] ECHO TRANSESOPHAGEALon 07-25 ECHO TRANSESOPHAGEAL Echocardiography Re port: Transesophageal Echo [facility] J1-5 Date of service: 07/25/2024 3:16:24 PM GEOLOGICAL Ordering physician: TEJAL RODRÍGUEZ 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 [...] * * * Final * * * [email or web address] Medical Image : [id number] ID Normal [facility] HIGH SENSITIVITY TROPONIN To n 07-25-2024 Troponin T.cardiac High sensitivity method [Mass/Vol] 48 ng/L High <12 [facility] Comment on above: Order Comment: David horton Type: BLOOD SPECIMENOrdering Facility: [facility] Address: [address] [place] [address] Performed By: #### H STNT ####[facility] [id number] [place] [address] [place] Troponin T.cardiac High sensitivity method [Mass/Vol] 50 ng/L High <12 [facility] Comment on above: Order Comment: Speci men Type: BLOOD SPECIMENOrdering Facility: [facility] Address: [address] [place] [address] Performed By: #### H STNT ####[facility] [id number] [address] [place] Troponin T.cardiac High sensitivity method [Mass/Vol] 57 ng/L High <12 [facility] Comment on above: Order Comment: Speci men Type: BLOOD SPECIMEN Ordering Facility: [facility] Address: [address] [place] [address] Performed By: #### 5 8410-2 #### [facility] CLIA [id number] [address] [place] [address] [place] HbA1c (Bld)on 07-25-2024 Average glucose Estimated from glycated hemoglobin (Bld) [Mass/Vol] 111 mg/dL Normal [facility] Comment on above: Order Comment: Speci men Type: BLOOD SPECIMENOrdering Facility: [facility] Address: [address] [place] [address] Result Comment: eAG: (Estimated average glucose) is a calculated value from HgbA1c and is goodwill representative of the average blood glucose level in the last 2-3 month period. Performed By: #### 5 5454-3 ####[facility] [id number] [place] [address] [place] HbA1c (Bld) [Mass fraction] 5.5 % Normal 4.3-5.6 [facility] Comment on above: Order Comment: David [facility] Type: BLOOD SPECIMENOrdering Facility: [facility] Address: [address] [place] [address] Result Comment: Amer [place] Diabetes Association guidelines indicate that patients with HgbA1c in the range 5.7-6.4% are at increased risk for development of diabetes, and intervention by lifestyle modification may be beneficial. HgbA1c greater or equal to 6.5% is considered diagnostic of diabetes. Performed By: #### 5 5454-3 ####[facility] [id number] [place] [address] [place] Magnesium SerPl-mCncon 07-25 Magnesium [Mass/Vol] 2.5 mg/dL High 1.7-2.3 [facility] Comment on above: Order Comment: Speci sol Type: BLOOD SPECIMEN Ordering Facility: [facility] Address: [address] [place] [address] Performed By: #### 5 8410-2 #### [facility] CLIA [id number] [address] [place] [address] [place] NURSING PROGon 07-25-2024 NURSING PROG HNO ID: [id number] Author: DOMINGUEZ OBREGON RN Service: ? Author [...] Dominguez Obregon RN In Department: CARDIOLOGY Normal [facility] PTT, ANTICOAGULANT THERAPYon 07-25-2024 aPTT Coag (PPP) [Time] 48.6 s High 23.0-32.4 [facility] Comment on above: Order Comment: Speci men Type: BLOOD SPECIMEN Ordering Facility: [facility] Address: [address] [place] [address] Performed By: #### 5 8410-2 #### [facility] CLIA [id number] [address] [place] [address] [place] aPTT Coag (PPP) [Time] 48.0 s High 23.0-32.4 Cl [facility] Comment on above: Order Comment: Speci men Type: BLOOD SPECIMENOrdering Facility: [facility] Address: [address] [place] [address] Performed By: #### P TTAC ####[facility] [id number] [address] [place] TSH SerPl-aCncon 07-25-2024 TSH Qn 3.760 m[IU]/L Normal 0.270-4.20 0 [facility] Comment on above: Order Comment: Speci men Type: BLOOD SPECIMEN Ordering Facility: [facility] Address: [address] [place] [address] Result Comment: If t he patient is , TSH reference range varies by gestational period: First Trimester (weeks 9-12): 0.180-2.990 mIU/L Second Trimester: 0.110-3.980 mIU/L Third Trimester: 0.480-4.710 mIU/L Bacilio Lay et al. A Practical Approach for the Verifications and Determination of Site- and Trimester-Specific Reference Intervals for Thyroid Function tests in . Thyroid, 2019:29:3:412-420. Lopez Recio, et al. 2017 Guidelines of the [place] Thyroid Association for the Diagnosis and Management of Thyroid Disease during and the . Thyroid, 2017:27:3:315-389. Performed By: #### 5 8410-2 #### [facility] CLIA [id number] [address] [address] [place] US LEG VEIN DVT [facility]AN [facility] LABo n 07-25-2024 [facility] Non-Invasive Vascular Laboratory [facility] Portable Lower Extremity Venous Duplex Bilateral/Complete [...] Joey Kowalski DO, RVT, RPVI Final CC [email or web address] Medical Image : [id number] ID See Link below for Image Normal [facility] Bacteria Bld Culton 07-25-19 25 Bacteria identified Cx Nom (Bld) CULTURE, BLOOD: No growth 5 days Normal [facility] Comment on above: Performed By: #### 6 00-7 ####[facility] [id number] [address] [place] CONSULTon 07-24-2024 CONSULT HNO ID: [id number] Author: DAINA MCPHERSON MD Service: Infectious Disease [...] 05/16-05/22/24. She presented with abdominal pain around [facility], for which she had presented [...] PERMANENT TRANSVENOUS PACEMAKER INSERTION 2006 ICD implant, [facility] ANESTHESIA TUBAL LIGATION/TRANSECTION APPENDECTOMY 05/05/2014 , lap [...] suicidal ideations Ativan [Lorazepam] Vomiting Azithromycin Intolerance [place] Anaphylaxis [place] Anaphylaxis pickles Fish Anaphylaxis Levofloxacin In D5w [...] 2006, deloris (more content not included)... Normal [facility] CRP SerPl HS-mCncon 07-25-19 25 CRP High sensitivity method [Mass/Vol] 0.9 mg/L Normal <3.1 [facility] Comment on above: Order Comment: Speci men Type: BLOOD SPECIMEN Ordering Facility: [facility] Address: [address] [place] [address] Result Comment: hsCR P < 1.0 mg/L, relative risk is low hsCRP 1.0-3.0 mg/L, relative risk is average hsCRP > 3.0 mg/L, relative risk is high Reference: Yunior TA, Chen GA, Lopez RW, et al. Markers of Inflammation and Cardiovascular Disease. Application to Clinical and Public Health Practice. A Statement for Healthcare Professionals from the Centers for Disease Control and Prevention and the [place] Heart Association. Circulation 2003;107:499-511. Performed By: #### 1 9123-9, 58411-6 #### [facility] CLIA [id number] [address] [place], [place] [address] [address] [place] [id number] 07-24-2024 ECG01 Ventricular Rate : 6 4 BPM Atrial Rate : 64 BPM P-R Interval : 156 ms QRS Duration : 84 ms Q-T Interval : 426 ms QTC Calculation(Bazett) : 439 ms Calculated P Morganza : 29 degrees Calculated R Morganza : 259 degrees Calculated T Morganza : 62 degrees NORMAL SINUS RHYTHM BIATRIAL ENLARGEMENT RIGHT SUPERIOR AXIS DEVIATION LEFT VENTRICULAR HYPERTROPHY RIGHT VENTRICULAR HYPERTROPHY NONSPECIFIC ST ABNORMALITY ABNORMAL ECG Confirmed by MERCY BRADFORD MD ([id number]) on 08/25/2024 3:54:02 PM NAME : MICHELLE MITCHELL PID : [id number] : 1980 Gender : Female Race : [...] CTS, Acquired by : Carlos Eduardo BONNER [facility] ECHOon 07-24-2024 Echocardiography Echocardiography Rep ort: Transthoracic Echo [facility] Bedside Date of service: 07/24/2024 3:02:30 PM GEOLOGICAL Ordering physician: TEJAL RODRÍGUEZ Indication: Shortness of Breath Technologist: Krissy Oviedo RVT Interpreting physician: Isaiah Mcgee MD PATIENT: Name: MRS. MICHELLE MITCHELL [...] the prior echocardiographic exam performed on 04/25/2021 ([facility]). Mobile echodensity reported today as above. MICKI may better assesss. * * * Final * * * CC [email or web address] Medical Image : [id number] ID Normal [facility] ESR Westergren method (Bld) [Velocity]on 07-24-2024 ESR (Bld) [Velocity] 2 mm/h Normal 0-20 [facility] Comment on above: Order Comment: Speci men Type: BLOOD SPECIMENOrdering Facility: [facility] Address: [address] [place] [address] Performed By: #### 4 537-7 ####[facility] [id number] [place] [address] [place] HCG Preg Ur Qlon 07-24-2024 HCG ( test) Ql (U) Negative Normal Negative [facility] Comment on above: Order Comment: Speci men Type: BLOOD SPECIMEN Ordering Facility: [facility] Address: [address] [place] [address] Result Comment: This test is intended to aid in the early detection of . Very dilute urine samples, as indicated by a low specific gravity, may not contain goodwill representative levels of hCG. This test detects [...] for . Performed By: #### 1 9123-9, 22929-8 #### [facility] CLIA [id number] [address] [place] [address] [place] HISTORY PHYSICALon HISTORY PHYSICAL HNO ID: [id number] Author: CASE FONSECA MD Service: Cardiovascular Medicine Author Type: Physician Type: H&P Filed: 07/25/2024 10:09 Note Text: [facility] CARDIOVASCULAR MEDICINE HISTORY AND PHYSICAL Michelle Mitchell [id number] PRIMARY SERVICE: Cardiovascular Medicine: Imaging DATE OF [...] states she began having abdominal issues around [facility], she went to [facility] for EGD/ colonoscopy, multiple biopsies taken. This [...] PERMANENT TRANSVENOUS PACEMAKER INSERTION 2006 ICD implant, [facility] ANESTHESIA TUBAL LIGATION/TRANSECTION APPENDECTOMY 05/05/2014 , lap [...] 10 mg (more content not included)... Normal [facility] NT-proBNP SerPl-nc 07-24 Natriuretic peptide.B prohormone N-Terminal [Mass/Vol] 3054 pg/mL High <125 [facility] Comment on above: Order Comment: Speci men Type: BLOOD SPECIMEN Ordering Facility: [facility] Address: [address] [place] [address] Performed By: #### 5 8410-2 #### [facility] CLIA [id number] [address] [place] [address] [place] PTT, ANTICOAGULANT THERAPYon 07-24-2024 aPTT Coag (PPP) [Time] 32.1 s Normal 23.0-32.4 [facility] Comment on above: Order Comment: Speci men Type: BLOOD SPECIMEN Ordering Facility: [facility] Address: [address] [place] [address] Performed By: #### 1 9123-9, 46308-6 #### [facility] CLIA [id number] [address] [place] [address] [place] TOXICOLOGY SCREEN, ROUTINE U RINEon 07-24-2024 Amphetamines Confirm (U) [Mass/Vol] Negative Normal Negative [facility] Comment on above: Order Comment: Speci men Type: BLOOD SPECIMEN Ordering Facility: [facility] Address: [address] [place] [address] Result Comment: Cuto ff threshold at 1000 ng/mL. Performed By: #### 1 9123-9, 69645-6 #### [facility] CLIA [id number] [address] [place] [address] [place] BARBITURATES, URINE Negative Normal Negative [facility] Comment on above: Order Comment: Speci men Type: BLOOD SPECIMEN Ordering Facility: [facility] Address: [address] [place] [address] Result Comment: Cuto ff threshold at 200 ng/mL. Performed By: #### 1 9123-9, 72474-1 #### [facility] CLIA [id number] [address] [place] [address] [place] BENZODIAZEPINES, UR Negative Normal Negative [facility] Comment on above: Order Comment: Speci men Type: BLOOD SPECIMEN Ordering Facility: [facility] Address: [address] [place] [address] Result Comment: Cuto ff threshold at 200 ng/mL. Performed By: #### 1 9123-9, 91290-0 #### [facility] CLIA [id number] [address] [place] [address] [place] Cannabinoids Screen Ql (U) Negative Normal Negative [facility] Comment on above: Order Comment: Speci men Type: BLOOD SPECIMEN Ordering Facility: [facility] Address: [address] [place] [address] Result Comment: Cuto ff threshold at 50 ng/mL. Performed By: #### 1 9123-9, 00939-4 #### [facility] CLIA [id number] [address] [place] [address] [place] Cocaine Ql (U) Negative Normal Negative [facility] Comment on above: Order Comment: Speci men Type: BLOOD SPECIMEN Ordering Facility: [facility] Address: [address] [place] [address] Result Comment: Cuto ff threshold at 300 ng/mL. Performed By: #### 1 9123-9, 94899-8 #### [facility] CLIA [id number] [address] [place] [address] [place] Ethanol (U) [Mass/Vol] <11 Normal <11 [facility] Comment on above: Order Comment: Speci men Type: BLOOD SPECIMEN Ordering Facility: [facility] Address: [address] [place] [address] Performed By: #### 1 9123-9, 68783-8 #### [facility] CLIA [id number] [address] [place] [address] [place] Opiates Screen Ql (U) Negative Normal Negative [facility] Comment on above: Order Comment: Speci men Type: BLOOD SPECIMEN Ordering Facility: [facility] Address: [address] [place] [address] Result Comment: Cuto ff threshold at 300 ng/mL. Performed By: #### 1 9123-9, 97511-9 #### [facility] CLIA [id number] [address] [place] [address] [place] oxyCODONE cutoff Screen (U) [Mass/Vol] Positive Abnormal Negative [facility] Comment on above: Order Comment: Speci men Type: BLOOD SPECIMEN Ordering Facility: [facility] Address: [address] [place] [address] Result Comment: Cuto ff threshold at 100 ng/mL. Performed By: #### 1 9123-9, 71916-3 #### [facility] CLIA [id number] [address] [place] [address] [place] Phencyclidine Ql (U) Negative Normal Negative [facility] Comment on above: Order Comment: Speci men Type: BLOOD SPECIMEN Ordering Facility: [facility] Address: [address] [place] [address] Result Comment: Cuto ff threshold at 25 ng/mL. Performed By: #### 1 9123-9, 72049-2 #### [facility] CLIA [id number] [address] [place] [address] [place] TYPE + SCREENon 07-24-2024 ABO A Normal [facility] Comment on above: Order Comment: Speci men Type: BLOOD SPECIMEN Ordering Facility: [facility] Address: [address] [place] [address] Performed By: #### 5 8410-2 #### [facility] CLIA [id number] [address] [place] [address] [place] Rh Nom (Bld) Positive Normal [facility] Comment on above: Order Comment: Speci men Type: BLOOD SPECIMEN Ordering Facility: [facility] Address: [address] [place] [address] Performed By: #### 5 8410-2 #### [facility] CLIA [id number] [address] [address] [place] [facility] [facility] TYPE AND SCREEN EXPIRATION 07/27/2024 23:59 Normal [facility] Comment on above: Order Comment: Speci men Type: BLOOD SPECIMEN Ordering Facility: [facility] Address: [address] [place] [address] Performed By: #### 5 8410-2 #### [facility] CLIA [id number] [address] [place] [address] [place] Urinalysis complete panel (U )on 07-24-2024 Bacteria LM.HPF (Urine sed) [#/Area] Negative Normal Negative [facility] Comment on above: Order Comment: Speci men Type: BLOOD SPECIMEN Ordering Facility: [facility] Address: [address] [place] [address] Performed By: #### 1 9123-9, 57132-7 #### [facility] CLIA [id number] [address] [place], [place] [address] [place] Bilirubin Ql (U) Negative Normal Negative [facility] Comment on above: Order Comment: Speci men Type: BLOOD SPECIMEN Ordering Facility: [facility] Address: [address] [place] [address] Performed By: #### 1 9123-9, 47730-3 #### [facility] CLIA [id number] [address] [id number] [place] Clarity (Unsp spec) Clear Normal Clear [facility] Comment on above: Order Comment: Speci men Type: BLOOD SPECIMEN Ordering Facility: [facility] Address: [address] [place] [address] Performed By: #### 1 9123-9, 65078-9 #### [facility] CLIA [id number] [address] [place] [address] [place] Color (U) Yellow Normal Yellow [facility] Comment on above: Order Comment: Speci men Type: BLOOD SPECIMEN Ordering Facility: [facility] Address: [address] [place] [address] Performed By: #### 1 9123-9, 26409-9 #### [facility] CLIA [id number] [address] [place] [address] [place] Epithelial cells LM.HPF (Urine sed) [#/Area] None Seen Normal [facility] Comment on above: Order Comment: Speci men Type: BLOOD SPECIMEN Ordering Facility: [facility] Address: [address] [place] [address] Performed By: #### 1 9123-9, 78534-1 #### [facility] CLIA [id number] [address] [place], [place] [address] [place] Glucose Test strip (U) [Mass/Vol] Trace Abnormal Negative [facility] Comment on above: Order Comment: Speci men Type: BLOOD SPECIMEN Ordering Facility: [facility] Address: [address] [place], [place] [address] Performed By: #### 1 9123-9, 03146-3 #### [facility] CLIA [id number] [address] [place], [place] [address] [place] Hemoglobin Ql (U) Negative Normal Negative [facility] Comment on above: Order Comment: Speci men Type: BLOOD SPECIMEN Ordering Facility: [facility] Address: [address] [place] [address] Performed By: #### 1 9123-9, 61836-0 #### [facility] CLIA [id number] [address] [place] [address] [place] Hyaline casts (Urine sed) [#/Area] 1-3 /LPF Abnormal 0 /LPF [facility] Comment on above: Order Comment: Speci men Type: BLOOD SPECIMEN Ordering Facility: [facility] Address: [address] [place] [address] Performed By: #### 1 9123-9, 12538-5 #### [facility] CLIA [id number] [address] [place] [address] [place] Ketones Ql (U) Negative Normal Negative [facility] Comment on above: Order Comment: Speci men Type: BLOOD SPECIMEN Ordering Facility: [facility] Address: [address] [place] [address] Performed By: #### 1 91239, 37442-6 #### [facility] CLIA [id number] [address] [place] [address] [place] Leukocyte esterase Test strip Ql (U) Negative Normal Negative [facility] Comment on above: Order Comment: Speci men Type: BLOOD SPECIMEN Ordering Facility: [facility] Address: [address] [place] [address] Performed By: #### 1 91239, 92774-8 #### [facility] CLIA [id number] [address] [place], [place] [address] [place] Nitrite Ql (U) Negative Normal Negative [facility] Comment on above: Order Comment: Speci men Type: BLOOD SPECIMEN Ordering Facility: [facility] Address: [address] [place] [address] Performed By: #### 1 9123-9, 48463-0 #### [facility] CLIA [id number] [address] [place], [place] [address] [place] pH (U) 7.5 [pH] Normal <8.5 [facility] Comment on above: Order Comment: Speci men Type: BLOOD SPECIMEN Ordering Facility: [facility] Address: [address] [place] [address] Performed By: #### 1 9123-9, 60156-2 #### [facility] CLIA [id number] [address] [place] [address] [place] Protein (U) [Mass/Vol] Negative Normal Negative [facility] Comment on above: Order Comment: Speci men Type: BLOOD SPECIMEN Ordering Facility: [facility] Address: [address] [place] [address] Performed By: #### 1 9123-9, #### [facility] CLIA [id number] [address] [place] [address] [place] RBC LM.HPF (Urine sed) [#/Area] 0-2 /HPF Normal 0-2 /HPF [facility] Comment on above: Order Comment: Speci men Type: BLOOD SPECIMEN Ordering Facility: [facility] Address: [address] [place] [address] Performed By: #### 1 9123-9, #### [facility] CLIA [id number] [address] [place] [address] [place] Specific gravity (U) [Rel density] 1.007 Normal 1.005-1.03 0 [facility] Comment on above: Order Comment: Speci men Type: BLOOD SPECIMEN Ordering Facility: [facility] Address: [address] [place] [address] Performed By: #### 1 9123-9, #### [facility] CLIA [id number] [address] [place] [address] [place] Urobilinogen Ql (U) 0.2 EU/dL Normal 0.2-1.0 EU/dL [facility] Comment on above: Order Comment: Speci men Type: BLOOD SPECIMEN Ordering Facility: [facility] Address: [address] [place] [address] Performed By: #### 1 9123-9, 31499-7 #### [facility] CLIA [id number] [address] [place] [address] [place] WBC LM.HPF (Urine sed) [#/Area] 0-5 /HPF Normal 0-5 /HPF [facility] Comment on above: Order Comment: Speci men Type: BLOOD SPECIMEN Ordering Facility: [facility] Address: [address] [place] [address] Performed By: #### 1 9123-9, 93451-8 #### [facility] CLIA [id number] [address] [place] [address] [place] XR ABDOMEN 1V [...] loops of bowel. No focal bony abnormality. 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: [employer] Transcribe Date/Time: Jul 24 2024 6:40P Dictated by : ANASTASIA WILLSON MD This examination was interpreted and the report reviewed and electronically signed by: ANASTASIA WILLSON MD on Jul 24 2024 6:42PM EST [id number] Normal [facility] 12 Lead EKGon 07-23-2024 12 Lead EKG Normal [facility] Absolute lymphocyte countOrd ered By: Willian Ovalles on 07-23-2024 Lymphocytes Auto (Unsp spec) [#/Vol] 0.52 10*3/uL Low 0.83-4.51 [facility] Absolute neutrophil countOrd ered By: Willian Ovalles on 07-23-2024 Neutrophils (Bld) [#/Vol] 19.1 10*3/uL High 2.0-7.7 [facility] Anion gap in Serum or Plasma Ordered By: Willian Ovalles on 07-23-2024 Anion gap [Moles/Vol] 13 mmol/L 5-15 [facility] Automated lymphocyte count a s percentage of total leukocytesOrdered By: Willian Ovalles on 07-23-2024 Lymphocytes/100 WBC Auto (Unsp spec) 2.5 % Low -41 [facility] BUN/creatinine ratioOrdered By: Willian Ovalles on 07-23-2024 Urea nitrogen/Creatinine [Mass ratio] 32.9 mg/mg High 12-31 [facility] Basic Metabolic Profile (BMP )on 07-23-2024 BUN/CRE 32.9 RATIO High 12-31 [facility] Comment on above: Performed By: #### L 500.2500, L100.0100 ####[facility] [address] [place], [address] Calcium [Mass/Vol] 9.4 mg/dL Normal 7.6-11.0 [facility] Comment on above: Performed By: #### L 500.2500, L100.0100 ####[facility] [address] [place], [address] Chloride [Moles/Vol] 100 mmol/L Normal 98-108 [facility] Comment on above: Performed By: #### L 500.2500, L100.0100 ####[facility] [address] [place], [address] CO2 [Moles/Vol] 23.1 mmol/L Normal 21.0-32.0 [facility] Comment on above: Performed By: #### L 500.2500, L100.0100 ####[facility] [address] [place], [address] Creatinine [Mass/Vol] 0.93 mg/dL Normal 0.70-1.20 [facility] Comment on above: Performed By: #### L 500.2500, L100.0100 ####[facility] [address] [place], [address] ECRCL 66.66 ml/min Normal 50-250 [facility] Comment on above: Performed By: #### L 500.2500, L100.0100 ####[facility] [address] [place], [address] GAP 13 Normal 5-15 [facility] Comment on above: Performed By: #### L 500.2500, L100.0100 ####[facility] [address] [place], [address] GFR/1.73 sq M.predicted among non-blacks MDRD (S/P/Bld) [Vol rate/Area] 78 mL/min/{1.73_m2} Normal >60 [facility] Comment on above: Result Comment: mL/m in/1.73m2 CKD-EPI Creatinine Equation (2020) Performed By: #### L 500.2500, L100.0100 ####[facility] [address] [place], [address] Glucose [Mass/Vol] 99 mg/dL Normal 70-99 [facility] Comment on above: Performed By: #### L 500.2500, L100.0100 ####[facility] [address] [place], [address] Potassium [Moles/Vol] 4.6 mmol/L Normal 3.3-5.1 [facility] Comment on above: Result Comment: Hemo lysis present, Results??could be affected.?? Performed By: #### L 500.2500, L100.0100 ####[facility] [address] [place], [address] Sodium [Moles/Vol] 136 mmol/L Normal 133-145 [facility] Comment on above: Performed By: #### L 500.2500, L100.0100 ####[facility] [address] [place], [address] Urea nitrogen [Mass/Vol] 30 mg/dL High 4-19 [facility] Comment on above: Performed By: #### L 500.2500, L100.0100 ####[facility] [address] [place], [address] Basophil percentageOrdered B y: Willian Ovalles on 07-23-2024 Basophils/100 WBC (Bld) 0.2 % 0-1 [facility] CBC W/Diff, Automatedon 07-12 Absolute Lymph 0.52 X10 3/uL Low 0.83-4.51 [facility] Comment on above: Performed By: #### L 500.2500, L100.0100 ####[facility] [address] [place], [address] Absolute Neut 19.1 X10 3/uL High 2.0-7.7 [facility] Comment on above: Performed By: #### L 500.2500, L100.0100 ####[facility] [address] [place], [address] Basophils/100 WBC (Bld) 0.2 % Normal 0-1 [facility] Comment on above: Performed By: #### L 500.2500, L100.0100 ####[facility] [address] [place], [address] Eosinophils/100 WBC (Bld) 0.0 % Normal 0-5 [facility] Comment on above: Performed By: #### L 500.2500, L100.0100 ####[facility] [address] [place], [address] Erythrocyte distribution width (RBC) [Ratio] 13.9 % Normal 11.6-14.6 [facility] Comment on above: Performed By: #### L 500.2500, L100.0100 ####[facility] [address] [place], [address] Hematocrit (Bld) [Volume fraction] 45.5 % Normal 37-47 [facility] Comment on above: Performed By: #### L 500.2500, L100.0100 ####[facility] [address] [place], [address] Hemoglobin (Bld) [Mass/Vol] 15.2 g/dL High 12.0-15.0 [facility] Comment on above: Performed By: #### L 500.2500, L100.0100 ####[facility] [address] [place], [address] IG% 1.500 High 0.0-0.9 [facility] Comment on above: Result Comment: IG% - Immature Granulocytes (promyelocytes, myelocytes andmetamyelocytes) > 1% indicates that a LEFT SHIFT is Present. Performed By: #### L 500.2500, L100.0100 ####[facility] [address] [place], [address] Lymphocytes/100 WBC (Bld) 2.5 % Low 19-41 [facility] Comment on above: Performed By: #### L 500.2500, L100.0100 ####[facility] [address] [place], [address] MCH (RBC) [Entitic mass] 32.4 pg High 27.0-32.0 [facility] Comment on above: Performed By: #### L 500.2500, L100.0100 ####[facility] [address] [place], [address] MCHC (RBC) [Mass/Vol] 33.4 g/dL Normal 32-36 [facility] Comment on above: Performed By: #### L 500.2500, L100.0100 ####[facility] [address] [place], [address] MCV (RBC) [Entitic vol] 97.0 fL Normal 81-99 [facility] Comment on above: Performed By: #### L 500.2500, L100.0100 ####[facility] [address] [place], [address] Monocytes/100 WBC (Bld) 2.5 % Normal 0-10 [facility] Comment on above: Performed By: #### L 500.2500, L100.0100 ####[facility] [address] [place], [address] Neutrophils/100 WBC (Bld) 93.3 % High 47-70 [facility] Comment on above: Performed By: #### L 500.2500, L100.0100 ####[facility] [address] [place], [address] Nucleated RBC (Bld) [#/Vol] 0 10*3/uL Normal 0-5 [facility] Comment on above: Performed By: #### L 500.2500, L100.0100 ####[facility] [address] [place], [address] Platelet mean volume (Bld) [Entitic vol] 10.6 fL Normal 6.2-12.0 [facility] Comment on above: Performed By: #### L 500.2500, L100.0100 ####[facility] [address] [place], [address] Platelets (Bld) [#/Vol] 372 10*3/uL Normal 150-450 [facility] Comment on above: Performed By: #### L 500.2500, L100.0100 ####[facility] [address] [place], [address] RBC (Bld) [#/Vol] 4.69 10*6/uL Normal 4.2-5.4 [facility] Comment on above: Performed By: #### L 500.2500, L100.0100 ####[facility] [address] [place], [address] RDW SD 49.4 fl High 35.1-43.9 [facility] Comment on above: Performed By: #### L 500.2500, L100.0100 ####[facility] [address] [place], [address] WBC (Bld) [#/Vol] 20.5 10*3/uL High 4.4-11.0 [facility] Comment on above: Performed By: #### L 500.2500, L100.0100 ####[facility] [address] [place], [address] Carbon dioxide, total [Moles /volume] in Central venous bloodOrdered By: Willian Ovalles on 07-23-2024 CO2 [Moles/Vol] 23.1 mmol/L 21.0-32.0 [facility] Chloride assayOrdered By: Fior Ovalles on 07-23-2024 Chloride [Moles/Vol] 100 mmol/L 98-108 [facility] Eosinophil percentageOrdered By: Willian Ovalles on 07-23-2024 Eosinophils/100 WBC (Bld) 0.0 % 0-5 [facility] Erythrocyte distribution wid th ratioOrdered By: Willian Ovalles on 07-23-2024 Erythrocyte distribution width (RBC) [Ratio] 13.9 % 11.6-14.6 [facility] Erythrocyte distribution wid th standard deviationOrdered By: Willian Ovalles on 07-23-2024 Erythrocyte distribution width (RBC) [Ratio] 49.4 fl High 35.1-43.9 [facility] Glomerular filtration rate ( GFR) estimation/1.73 sq m using serum, plasma, or whole bOrdered By: Willian Ovalles on 07-23-2024 GFR/1.73 sq M.predicted among non-blacks MDRD (S/P/Bld) [Vol rate/Area] 78 mL/min/{1.73_m2} >60 [facility] Comment on above: mL/min/1.73m2 CKD-EP I Creatinine Equation (2020) Hematocrit Auto (Bld) [Volum e fraction]Ordered By: Willian Ovalles on 07-23-2024 Hematocrit (Bld) [Volume fraction] 45.5 % 37-47 [facility] Hemoglobin measurementOrdere d By: Willian Ovalles on 07-23-2024 Hemoglobin (Bld) [Mass/Vol] 15.2 g/dL High 12.0-15.0 [facility] Immature granulocytes/100 WB C Auto (Bld)Ordered By: Willian Ovalles on 07-23-2024 Immature granulocytes/100 WBC (Bld) 1.500 % High 0.0-0.9 [facility] Comment on above: IG% - Immature Granu locytes (promyelocytes, myelocytes and metamyelocytes) > 1% indicates that a LEFT SHIFT is Present. MCV (mean corpuscular volume ) determinationOrdered By: Willian Ovalles on 07-23-2024 MCV (RBC) [Entitic vol] 97.0 fL 81-99 [facility] Mean corpuscular hemoglobin (MCH) determinationOrdered By: Willian Ovalles on 07-23-2024 MCH (RBC) [Entitic mass] 32.4 pg High 27.0-32.0 [facility] Mean corpuscular hemoglobin concentration (MCHC) determinationOrdered By: Willian Ovalles on 07-23-2024 MCHC (RBC) [Mass/Vol] 33.4 g/dL 32-36 [facility] Mean platelet volume determi nationOrdered By: Willian Ovalles on 07-23-2024 Platelet mean volume (Bld) [Entitic vol] 10.6 fL 6.2-12.0 [facility] Monocyte percentageOrdered B y: Willian Ovalles on 07-23-2024 Monocytes/100 WBC (Bld) 2.5 % 0-10 [facility] Neutrophil percentageOrdered By: Willian Ovalles on 07-23-2024 Neutrophils/100 WBC (Bld) 93.3 % High 47-70 [facility] Nucleated red blood cell per centageOrdered By: Willian Ovalles on 07-23-2024 Nucleated RBC/100 WBC (Bld) [Ratio] 0 % 0-5 [facility] Platelet countOrdered By: Fior Ovalles on 07-23-2024 Platelets (Bld) [#/Vol] 372 10*3/uL 150-450 [facility] Potassium measurement (mass/ volume)Ordered By: Willian Ovalles on 07-23-2024 Potassium (Unsp spec) [Mass/Vol] 4.6 mmol/L 3.3-5.1 [facility] Comment on above: Hemolysis present, R esults could be affected. RBC Auto (Bld) [#/Vol]Ordere d By: Willian Ovalles on 07-23-2024 RBC (Bld) [#/Vol] 4.69 10*6/uL 4.2-5.4 [facility] Serum creatinine measurement (mass/volume)Ordered By: Willian Ovalles on 07-23-2024 Creatinine [Mass/Vol] 0.93 mg/dL 0.70-1.20 [facility] Serum glucose measurement (m ass/volume)Ordered By: Willian Ovalles on 07-23-2024 Glucose [Mass/Vol] 99 mg/dL 70-99 [facility] Serum or plasma calcium leslie urement (mass/volume)Ordered By: Willian Ovalles on 07-23-2024 Calcium [Mass/Vol] 9.4 mg/dL 7.6-11.0 [facility] Serum or plasma urea nitroge n measurement (mass/volume)Ordered By: Willian Ovalles on 07-23-2024 Urea nitrogen [Mass/Vol] 30 mg/dL High 4-19 [facility] Sodium levelOrdered By: Willian Ovalles on 07-23-2024 Sodium [Moles/Vol] 136 mmol/L 133-145 [facility] Venous duplex ultrasound rep ortOrdered By: Willian Colón on 07-23-2024 US Vein [facility] [address] [place] [address] Venous Duplex US - Wan Extrem 07/23/24 0803 MR#: [id number] Acct: [id number] Name: MICHELLE MITCHELL Rep #:[id number] 3 : 1980 43 From: Willian Arciniega Attending Dr: Dr. Willian Ovalles DO Status: ADM IN Ordering Dr: Sergio Umaña DO Date: 07/21/24 Location: [facility] Sex: F C Admitted: 07/21/24 Reason For [...] called and/or faxed to Dr Bishop / U [employer] worker Jody. VL/Venous Duplex US - Wan Extrem [...] Dictated: 07/23/24 0803 Date Transcribed: 07/23/24 1157 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: Signed [facility] Work Phone: White blood cell (WBC) count Ordered By: Willian Ovalles on 07-23-2024 WBC (Bld) [#/Vol] 20.5 10*3/uL High 4.4-11.0 [facility] Basic Metabolic Profile (BMP )on 07-22-2024 BUN/CRE 27.6 RATIO High 10-20 [facility] Comment on above: Performed By: #### L 100.0100, L500.2500 ####[facility] [address] [place], [address] Calcium [Mass/Vol] 9.1 mg/dL Normal 7.6-11.0 [facility] Comment on above: Performed By: #### L 100.0100, L500.2500 ####[facility] [address] [place], [address] Chloride [Moles/Vol] 100 mmol/L Normal 98-108 [facility] Comment on above: Performed By: #### L 100.0100, L500.2500 ####[facility] [address] [place], [address] CO2 [Moles/Vol] 20.0 mmol/L Low 21.0-32.0 [facility] Comment on above: Performed By: #### L 100.0100, L500.2500 ####[facility] [address] [place], [address] Creatinine [Mass/Vol] 1.05 mg/dL Normal 0.70-1.20 [facility] Comment on above: Performed By: #### L 100.0100, L500.2500 ####[facility] [address] [place], [address] ECRCL 59.04 ml/min Normal 50-250 [facility] Comment on above: Performed By: #### L 100.0100, L500.2500 ####[facility] [address] [place], [address] GAP 15 Normal 5-15 [facility] Comment on above: Performed By: #### L 100.0100, L500.2500 ####[facility] [address] [place], [address] GFR/1.73 sq M.predicted among non-blacks MDRD (S/P/Bld) [Vol rate/Area] 67 mL/min/{1.73_m2} Normal >60 [facility] Comment on above: Result Comment: mL/m in/1.73m2 CKD-EPI Creatinine Equation (2020) Performed By: #### L 100.0100, L500.2500 ####[facility] [address] [place], [address] Glucose [Mass/Vol] 112 mg/dL High 70-99 [facility] Comment on above: Performed By: #### L 100.0100, L500.2500 ####[facility] [address] [place], [address] Potassium [Moles/Vol] 4.0 mmol/L Normal 3.3-5.1 [facility] Comment on above: Performed By: #### L 100.0100, L500.2500 ####[facility] [address] [place], [address] Sodium [Moles/Vol] 135 mmol/L Normal 133-145 [facility] Comment on above: Performed By: #### L 100.0100, L500.2500 ####[facility] [address] [place], [address] Urea nitrogen [Mass/Vol] 29 mg/dL High 4-19 [facility] Comment on above: Performed By: #### L 100.0100, L500.2500 ####[facility] [address] [place], [address] Blood cultureOrdered By: Amber Ovalles on 07-22-2024 Bacteria identified Cx Nom (Bld) No growth in 5 days. [facility] Bacteria identified Cx Nom (Bld) No growth in 5 days. [facility] CBC W/Diff, Automatedon 07-12 Absolute Lymph 0.95 X10 3/uL Normal 0.83-4.51 [facility] Comment on above: Performed By: #### L 100.0100, L500.2500 ####[facility] [address] [place], [address] Absolute Neut 13.0 X10 3/uL High 2.0-7.7 [facility] Comment on above: Performed By: #### L 100.0100, L500.2500 ####[facility] [address] [place], [address] Basophils/100 WBC (Bld) 0.3 % Normal 0-1 [facility] Comment on above: Performed By: #### L 100.0100, L500.2500 ####[facility] [address] [place], [address] Eosinophils/100 WBC (Bld) 0.2 % Normal 0-5 [facility] Comment on above: Performed By: #### L 100.0100, L500.2500 ####[facility] [address] [place], [address] Erythrocyte distribution width (RBC) [Ratio] 14.1 % Normal 11.6-14.6 [facility] Comment on above: Performed By: #### L 100.0100, L500.2500 ####[facility] [address] [place], [address] Hematocrit (Bld) [Volume fraction] 39.1 % Normal 37-47 [facility] Comment on above: Performed By: #### L 100.0100, L500.2500 ####[facility] [address] [place], [address] Hemoglobin (Bld) [Mass/Vol] 12.7 g/dL Normal 12.0-15.0 [facility] Comment on above: Performed By: #### L 100.0100, L500.2500 ####[facility] [address] [place], [address] IG% 1.200 High 0.0-0.9 [facility] Comment on above: Result Comment: IG% - Immature Granulocytes (promyelocytes, myelocytes andmetamyelocytes) > 1% indicates that a LEFT SHIFT is Present. Performed By: #### L 100.0100, L500.2500 ####[facility] [address] [place], [address] Lymphocytes/100 WBC (Bld) 6.4 % Low 19-41 [facility] Comment on above: Performed By: #### L 100.0100, L500.2500 ####[facility] [address] [place], [address] MCH (RBC) [Entitic mass] 32.1 pg High 27.0-32.0 [facility] Comment on above: Performed By: #### L 100.0100, L500.2500 ####[facility] [address] [place], [address] MCHC (RBC) [Mass/Vol] 32.5 g/dL Normal 32-36 [facility] Comment on above: Performed By: #### L 100.0100, L500.2500 ####[facility] [address] [place], [address] MCV (RBC) [Entitic vol] 98.7 fL Normal 81-99 [facility] Comment on above: Performed By: #### L 100.0100, L500.2500 ####[facility] [address] [place], [address] Monocytes/100 WBC (Bld) 4.8 % Normal 0-10 [facility] Comment on above: Performed By: #### L 100.0100, L500.2500 ####[facility] [address] [place], [address] Neutrophils/100 WBC (Bld) 87.1 % High 47-70 [facility] Comment on above: Performed By: #### L 100.0100, L500.2500 ####[facility] [address] [place], [address] Nucleated RBC (Bld) [#/Vol] 0 10*3/uL Normal 0-5 [facility] Comment on above: Performed By: #### L 100.0100, L500.2500 ####[facility] [address] [place], [address] Platelet mean volume (Bld) [Entitic vol] 11.1 fL Normal 6.2-12.0 [facility] Comment on above: Performed By: #### L 100.0100, L500.2500 ####[facility] [address] [place], [address] Platelets (Bld) [#/Vol] 280 10*3/uL Normal 150-450 [facility] Comment on above: Performed By: #### L 100.0100, L500.2500 ####[facility] [address] [place], [address] RBC (Bld) [#/Vol] 3.96 10*6/uL Low 4.2-5.4 [facility] Comment on above: Performed By: #### L 100.0100, L500.2500 ####[facility] [address] [place], [address] RDW SD 51.6 fl High 35.1-43.9 [facility] Comment on above: Performed By: #### L 100.0100, L500.2500 ####[facility] [address] [place], [address] WBC (Bld) [#/Vol] 14.9 10*3/uL High 4.4-11.0 [facility] Comment on above: Performed By: #### L 100.0100, L500.2500 ####[facility] [address] [place], [address] Bilirubin, totalOrdered By: Sergio Whalen on 07-21-2024 Bilirubin [Mass/Vol] 0.59 mg/dL 0.00-1.30 [facility] CBC W/Diff, Automatedon 07-12 0 Absolute Lymph 0.59 X10 3/uL Low 0.83-4.51 [facility] Comment on above: Performed By: #### L 500.4050, L100.0100, L500.4100, L501.2300 ####[facility] [address] [place], [address] Absolute Neut 15.8 X10 3/uL High 2.0-7.7 [facility] Comment on above: Performed By: #### L 500.4050, L100.0100, L500.4100, L501.2300 ####[facility] [address] [place], [address] Basophils/100 WBC (Bld) 0.2 % Normal 0-1 [facility] Comment on above: Performed By: #### L 500.4050, L100.0100, L500.4100, L501.2300 ####[facility] [address] [place], [address] Eosinophils/100 WBC (Bld) 0.1 % Normal 0-5 [facility] Comment on above: Performed By: #### L 500.4050, L100.0100, L500.4100, L501.2300 ####[facility] [address] [place], [address] Erythrocyte distribution width (RBC) [Ratio] 14.2 % Normal 11.6-14.6 [facility] Comment on above: Performed By: #### L 500.4050, L100.0100, L500.4100, L501.2300 ####[facility] [address] [place], [address] Hematocrit (Bld) [Volume fraction] 41.0 % Normal 37-47 [facility] Comment on above: Performed By: #### L 500.4050, L100.0100, L500.4100, L501.2300 ####[facility] [address] [place], [address] Hemoglobin (Bld) [Mass/Vol] 13.6 g/dL Normal 12.0-15.0 [facility] Comment on above: Performed By: #### L 500.4050, L100.0100, L500.4100, L501.2300 ####[facility] [address] [place], [address] IG% 1.000 High 0.0-0.9 [facility] Comment on above: Result Comment: IG% - Immature Granulocytes (promyelocytes, myelocytes andmetamyelocytes) > 1% indicates that a LEFT SHIFT is Present. Performed By: #### L 500.4050, L100.0100, L500.4100, L501.2300 ####[facility] [address] [place], [address] Lymphocytes/100 WBC (Bld) 3.5 % Low 19-41 [facility] Comment on above: Performed By: #### L 500.4050, L100.0100, L500.4100, L501.2300 ####[facility] [address] [place], [address] MCH (RBC) [Entitic mass] 32.3 pg High 27.0-32.0 [facility] Comment on above: Performed By: #### L 500.4050, L100.0100, L500.4100, L501.2300 ####[facility] [address] [place], [address] MCHC (RBC) [Mass/Vol] 33.2 g/dL Normal 32-36 [facility] Comment on above: Performed By: #### L 500.4050, L100.0100, L500.4100, L501.2300 ####[facility] [address] [place], [address] MCV (RBC) [Entitic vol] 97.4 fL Normal 81-99 [facility] Comment on above: Performed By: #### L 500.4050, L100.0100, L500.4100, L501.2300 ####[facility] [address] [place], [address] Monocytes/100 WBC (Bld) 2.6 % Normal 0-10 [facility] Comment on above: Performed By: #### L 500.4050, L100.0100, L500.4100, L501.2300 ####[facility] [address] [place], [address] Neutrophils/100 WBC (Bld) 92.6 % High 47-70 [facility] Comment on above: Performed By: #### L 500.4050, L100.0100, L500.4100, L501.2300 ####[facility] [address] [place], [address] Nucleated RBC (Bld) [#/Vol] 0 10*3/uL Normal 0-5 [facility] Comment on above: Performed By: #### L 500.4050, L100.0100, L500.4100, L501.2300 ####[facility] [address] [place], [address] Platelet mean volume (Bld) [Entitic vol] 10.3 fL Normal 6.2-12.0 [facility] Comment on above: Performed By: #### L 500.4050, L100.0100, L500.4100, L501.2300 ####[facility] [address] [place], [address] Platelets (Bld) [#/Vol] 307 10*3/uL Normal 150-450 [facility] Comment on above: Performed By: #### L 500.4050, L100.0100, L500.4100, L501.2300 ####[facility] [address] [place], [address] RBC (Bld) [#/Vol] 4.21 10*6/uL Normal 4.2-5.4 [facility] Comment on above: Performed By: #### L 500.4050, L100.0100, L500.4100, L501.2300 ####[facility] [address] [place], [address] RDW SD 51.1 fl High 35.1-43.9 [facility] Comment on above: Performed By: #### L 500.4050, L100.0100, L500.4100, L501.2300 ####[facility] [address] [place], [address] WBC (Bld) [#/Vol] 17.0 10*3/uL High 4.4-11.0 [facility] Comment on above: Performed By: #### L 500.4050, L100.0100, L500.4100, L501.2300 ####[facility] [address] [place], [address] Calculated very low density lipoprotein (VLDL) cholesterol measurementOrdered By: Sergio Whalen on 07-21-2024 Calculated very low density lipoprotein (VLDL) cholesterol measurement 45 mg/dL High 5-40 [facility] Comprehensive Metabolic Prof ilon 07-21-2024 Albumin [Mass/Vol] 4.4 g/dL Normal 3.5-5.0 [facility] Comment on above: Performed By: #### L 500.4050, L100.0100, L500.4100, L501.2300 ####[facility] [address] [place], [address] Albumin/Globulin [Mass ratio] 1.6 {ratio} Normal 0.9-2.4 [facility] Comment on above: Performed By: #### L 500.4050, L100.0100, L500.4100, L501.2300 ####[facility] [address] [place], [address] ALK PHOS 118 U/L High 35-104 [facility] Comment on above: Performed By: #### L 500.4050, L100.0100, L500.4100, L501.2300 ####[facility] [address] [place], [address] ALT [Catalytic activity/Vol] 35 U/L Normal <=34 [facility] Comment on above: Performed By: #### L 500.4050, L100.0100, L500.4100, L501.2300 ####[facility] [address] [place], [address] AST [Catalytic activity/Vol] 29 U/L Normal <=31 [facility] Comment on above: Performed By: #### L 500.4050, L100.0100, L500.4100, L501.2300 ####[facility] [address] [place], [address] Bilirubin [Mass/Vol] 0.59 mg/dL Normal 0.00-1.30 [facility] Comment on above: Performed By: #### L 500.4050, L100.0100, L500.4100, L501.2300 ####[facility] [address] [place], [address] BUN/CRE 23.1 RATIO High 10-20 [facility] Comment on above: Performed By: #### L 500.4050, L100.0100, L500.4100, L501.2300 ####[facility] [address] [place], [address] Calcium [Mass/Vol] 9.3 mg/dL Normal 7.6-11.0 [facility] Comment on above: Performed By: #### L 500.4050, L100.0100, L500.4100, L501.2300 ####[facility] [address] [place], [address] Chloride [Moles/Vol] 102 mmol/L Normal 98-108 [facility] Comment on above: Performed By: #### L 500.4050, L100.0100, L500.4100, L501.2300 ####[facility] [address] [place], [address] CO2 [Moles/Vol] 19.4 mmol/L Low 21.0-32.0 [facility] Comment on above: Performed By: #### L 500.4050, L100.0100, L500.4100, L501.2300 ####[facility] [address] [place], [address] Creatinine [Mass/Vol] 0.99 mg/dL Normal 0.70-1.20 [facility] Comment on above: Performed By: #### L 500.4050, L100.0100, L500.4100, L501.2300 ####[facility] [address] [place], [address] ECRCL 62.62 ml/min Normal 50-250 [facility] Comment on above: Performed By: #### L 500.4050, L100.0100, L500.4100, L501.2300 ####[facility] [address] [place], [address] GAP 14 Normal 5-15 [facility] Comment on above: Performed By: #### L 500.4050, L100.0100, L500.4100, L501.2300 ####[facility] [address] [place], [address] GFR/1.73 sq M.predicted among non-blacks MDRD (S/P/Bld) [Vol rate/Area] 72 mL/min/{1.73_m2} Normal >60 [facility] Comment on above: Result Comment: mL/m in/1.73m2 CKD-EPI Creatinine Equation (2020) Performed By: #### L 500.4050, L100.0100, L500.4100, L501.2300 ####[facility] [address] [place], [address] Globulin (S) [Mass/Vol] 2.6 g/dL Normal 2.2-4.2 [facility] Comment on above: Performed By: #### L 500.4050, L100.0100, L500.4100, L501.2300 ####[facility] [address] [place], [address] Glucose [Mass/Vol] 131 mg/dL High 70-99 [facility] Comment on above: Performed By: #### L 500.4050, L100.0100, L500.4100, L501.2300 ####[facility] [address] [place], [address] Potassium [Moles/Vol] 4.8 mmol/L Normal 3.3-5.1 [facility] Comment on above: Performed By: #### L 500.4050, L100.0100, L500.4100, L501.2300 ####[facility] [address] [place], [address] Sodium [Moles/Vol] 135 mmol/L Normal 133-145 [facility] Comment on above: Performed By: #### L 500.4050, L100.0100, L500.4100, L501.2300 ####[facility] [address] [place], [address] T PROT 7.0 g/dL Normal 5.9-8.4 [facility] Comment on above: Performed By: #### L 500.4050, L100.0100, L500.4100, L501.2300 ####[facility] [address] [place], [address] Urea nitrogen [Mass/Vol] 23 mg/dL High 4-19 [facility] Comment on above: Performed By: #### L 500.4050, L100.0100, L500.4100, L501.2300 ####[facility] [address] [place], [address] Consultation - Cardiologyon 07-21-2024 Consultation - Cardiology Normal [facility] Echo Completeon 07-21-2024 Echo Complete Normal [facility] Echocardiogram study reportO rdered By: Saman Clay on 07-21-2024 Study report [facility] [address] [place] [address] Echo Complete 07/21/24 1046 MR#: [id number] Acct: [id number] Name: MICHELLE MITCHELL Rep #:[id number] 1 : 1980 43 From: Saman Clay MD Attending Dr: Dr. Willian Ovalles, DO Status: ADM IN Ordering Dr: Sergio Umaña DO Date: 07/21/24 Location: [facility] Sex: F C Admitted: 07/21/24 Reason For [...] Date Dictated: 07/21/24 1046 Date Transcribed: 07/21/241335 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: Signed [facility] Work Phone: Hemoglobin A1con 07-21-2024 HbA1c (Bld) [Mass fraction] 5.6 % Normal <=5.6 [facility] Comment on above: Result Comment: Norm al < 5.7 % Prediabetic 5.7 - 6.4 % Diabetic >or= 6.5 % Please note range changes. Performed By: #### L 501.9520, L501.9985 ####[facility] [address] [place], [address] L499.0043on 07-21-2024 Trop T High Sen 37 ng/L High <=14 [facility] Comment on above: Performed By: #### L 499.0043 ####[facility] [address] [place], [address] LDL calc ser/plasOrdered By: Sergio Whalen on 07-21-2024 Cholesterol in LDL [Mass/Vol] 92 mg/dL [facility] Comment on above: Idbpuwwhsz=982-835 m g/dL & Higher Agto=148 mg/dL or greater Laboratory - Chemistry and C hemistry - challengeOrdered By: Sergio Whalen on 07-21-2024 AST [Catalytic activity/Vol] 29 U/L <32 [facility] Lipid Profileon 07-21-2024 CHOL:HDL 4.43 Normal [facility] Comment on above: Performed By: #### L 500.4050, L100.0100, L500.4100, L501.2300 ####[facility] [address] [place], [address] Cholesterol [Mass/Vol] 177 mg/dL Normal <=200 [facility] Comment on above: Result Comment: Chol esterol level, Desirable <200 mg/dLBorderline high cholesterol 200-239 mg/dLHigh cholesterol >=240 mg/dLRecommendations of the NCEP Adult Treatment Panel for thefollowing risk-cutoff thresholds for the [place] [employer]. Performed By: #### L 500.4050, L100.0100, L500.4100, L501.2300 ####[facility] [address] [place], [address] Cholesterol in HDL [Mass/Vol] 40 mg/dL Normal [facility] Comment on above: Result Comment: Sophie onal Cholesterol Education Program (NCEP) guidelines:<40 mg/dL: Low HDL-cholesterol (major risk factor for CHD)>= 60 mg/dL: High HDL-cholesterol (negative risk factor forCHD)HDL-cholesterol is affected by a number of factors, e.g.smoking, exercise, hormones, sex and age. Performed By: #### L 500.4050, L100.0100, L500.4100, L501.2300 ####[facility] [address] [place], [address] Cholesterol in LDL [Mass/Vol] 92 mg/dL Normal [facility] Comment on above: Result Comment: Bord unfrds=429-769 mg/dL Higher Pbgb=821 mg/dL or greater Performed By: #### L 500.4050, L100.0100, L500.4100, L501.2300 ####[facility] [address] [place], [address] Cholesterol in VLDL [Mass/Vol] 45 mg/dL High 5-40 [facility] Comment on above: Performed By: #### L 500.4050, L100.0100, L500.4100, L501.2300 ####[facility] [address] [place], [address] Triglyceride [Mass/Vol] 224 mg/dL High [facility] Comment on above: Result Comment: The drugs N-Acetylcysteine and Metamizole may falselydepress this assay.Normal range: <150 mg/dLBorderline High: 150-199 mg/dLHigh: 200-499 mg/dLVery High: >500 mg/dL Performed By: #### L 500.4050, L100.0100, L500.4100, L501.2300 ####[facility] [address] [place], [address] Magnesiumon 07-21-2024 Magnesium [Mass/Vol] 1.9 mg/dL Normal 1.5-2.2 [facility] Comment on above: Performed By: #### L 501.5200 ####[facility] [address] [place], [address] No Panel InformationOrdered By: Sergio Whalen on 07-21-2024 29 U/L <32 [facility] Phosphoruson 07-21-2024 Phosphate [Mass/Vol] 3.7 mg/dL Normal 2.7-4.5 [facility] Comment on above: Performed By: #### L 500.4050, L100.0100, L500.4100, L501.2300 ####[facility] [address] [place], [address] Screening total cholesterol/ high density lipoprotein (HDL) cholesterol ratioOrdered By: Sergio Whalen on 07-21-2024 Cholesterol.total/Choles terol in HDL [Mass ratio] 4.43 {ratio} [facility] Serum globulin measurementOr dered By: Sergio Whalen on 07-21-2024 Globulin (S) [Mass/Vol] 2.6 g/dL 2.2-4.2 [facility] Serum or plasma alanine hair otransferase (ALT) measurementOrdered By: Sergio Whalen on 07-21-2024 ALT [Catalytic activity/Vol] 35 U/L <35 [facility] Serum or plasma albumin leslie urement (mass/volume)Ordered By: Sergio Whalen on 07-21-2024 Albumin [Mass/Vol] 4.4 g/dL 3.5-5.0 [facility] Serum or plasma albumin/glob ulin mass ratioOrdered By: Sergio Whalen on 07-21-2024 Albumin/Globulin [Mass ratio] 1.6 {ratio} 0.9-2.4 [facility] Serum or plasma alkaline delfin sphatase measurementOrdered By: Sergio Whalen on 07-21-2024 ALP [Catalytic activity/Vol] 118 U/L High 35-104 [facility] Serum or plasma cholesterol in HDL measurement (mass/volume)Ordered By: Sergio Whalen on 07-21-2024 Cholesterol in HDL [Mass/Vol] 40 mg/dL >40 [facility] Comment on above: National Cholesterol Education Program (NCEP) guidelines:<40 mg/dL: Low HDL-cholesterol (major risk factor for CHD)>= 60 mg/dL: High HDL-cholesterol (negative risk factor for CHD)HDL-cholesterol is affected by a number of factors, e.g. smoking, exercise, hormones, sex and age. Serum or plasma cholesterol measurement (mass/volume)Ordered By: Sergio Whalen on 07-21-2024 Cholesterol [Mass/Vol] 177 mg/dL <201 [facility] Comment on above: Cholesterol level, D esirable <200 mg/dLBorderline high cholesterol 200-239 mg/dLHigh cholesterol >=240 mg/dLRecommendations of the NCEP Adult Treatment Panel for the following risk-cutoff thresholds for the [place] population. Thyroid Stim Hormone (TSH)on 07-21-2024 TSH 1.400 uIU/mL Normal 0.300-4.20 0 [facility] Comment on above: Order Comment: ADD O N Performed By: #### L 501.9520, L501.9985 ####[facility] [address] [place], [address] Total proteinOrdered By: Louis Whalen on 07-21-2024 Protein [Mass/Vol] 7.0 g/dL 5.9-8.4 [facility] Triglycerides measurementOrd ered By: Sergio Whalen on 07-21-2024 Triglyceride [Mass/Vol] 224 mg/dL High <199 [facility] Comment on above: The drugs N-Acetylcy steine and Metamizole may falsely depress this assay. Normal range: <150 mg/dLBorderline High: 150-199 mg/dLHigh: 200-499 mg/dLVery High: >500 mg/dL Venous Duplex US - Wan Extre mon 07-21-2024 Venous Duplex US - Wan Extrem Normal [facility] Abdomen/Pelvis W IV Cont ONL Yon 07-20-2024 Abdomen/Pelvis W IV Cont ONLY Normal [facility] Absolute lymphocyte countOrd ered By: Carlos Nair on 07-20-2024 Lymphocytes Auto (Unsp spec) [#/Vol] 0.38 10*3/uL Low 0.83-4.51 [facility] Absolute neutrophil countOrd ered By: Carlos Nair on 07-20-2024 Neutrophils (Bld) [#/Vol] 13.6 10*3/uL High 2.0-7.7 [facility] Anion gap in Serum or Plasma Ordered By: Carlos Nair on 07-20-2024 Anion gap [Moles/Vol] 13 mmol/L 5-15 [facility] Automated lymphocyte count a s percentage of total leukocytesOrdered By: Carlos Nair on 07-20-2024 Lymphocytes/100 WBC Auto (Unsp spec) 2.7 % Low 19-41 [facility] BUN/creatinine ratioOrdered By: Carlos Nair on 07-20-2024 Urea nitrogen/Creatinine [Mass ratio] 21.8 mg/mg High 10-20 [facility] Basophil percentageOrdered B y: Carlos Nair on 07-20-2024 Basophils/100 WBC (Bld) 0.1 % 0-1 [facility] Bilirubin Test strip Ql (U)O rdered By: Carlos Nair on 07-20-2024 Bilirubin Ql (U) Negative Negative [facility] Bilirubin directOrdered By: Carlos Nair on 07-20-2024 Bilirubin.direct [Mass/Vol] 0.29 mg/dL 0.00-0.30 [facility] Bilirubin, totalOrdered By: Carlos Nair on 07-20-2024 Bilirubin [Mass/Vol] 0.61 mg/dL 0.00-1.30 [facility] CBC W/Diff, Automatedon Absolute Lymph 0.38 X10 3/uL Low 0.83-4.51 [facility] Comment on above: Performed By: #### L 100.0100, L500.4050, L500.3400, L300.8000, L503.7505, L501.2450 ####[facility] [address] [place], [address] Absolute Neut 13.6 X10 3/uL High 2.0-7.7 [facility] Comment on above: Performed By: #### L 100.0100, L500.4050, L500.3400, L300.8000, L503.7505, L501.2450 ####[facility] [address] [place], [address] Basophils/100 WBC (Bld) 0.1 % Normal 0-1 [facility] Comment on above: Performed By: #### L 100.0100, L500.4050, L500.3400, L300.8000, L503.7505, L501.2450 ####[facility] [address] [place], [address] Eosinophils/100 WBC (Bld) 0.0 % Normal 0-5 [facility] Comment on above: Performed By: #### L 100.0100, L500.4050, L500.3400, L300.8000, L503.7505, L501.2450 ####[facility] [address] [place], [address] Erythrocyte distribution width (RBC) [Ratio] 14.1 % Normal 11.6-14.6 [facility] Comment on above: Performed By: #### L 100.0100, L500.4050, L500.3400, L300.8000, L503.7505, L501.2450 ####[facility] [address] [place], [address] Hematocrit (Bld) [Volume fraction] 40.2 % Normal 37-47 [facility] Comment on above: Performed By: #### L 100.0100, L500.4050, L500.3400, L300.8000, L503.7505, L501.2450 ####[facility] [address] [place], [address] Hemoglobin (Bld) [Mass/Vol] 13.2 g/dL Normal 12.0-15.0 [facility] Comment on above: Performed By: #### L 100.0100, L500.4050, L500.3400, L300.8000, L503.7505, L501.2450 ####[facility] [address] [place], [address] IG% 1.000 High 0.0-0.9 [facility] Comment on above: Result Comment: IG% - Immature Granulocytes (promyelocytes, myelocytes andmetamyelocytes) > 1% indicates that a LEFT SHIFT is Present. Performed By: #### L 100.0100, L500.4050, L500.3400, L300.8000, L503.7505, L501.2450 ####[facility] [address] [place], [address] Lymphocytes/100 WBC (Bld) 2.7 % Low 19-41 [facility] Comment on above: Performed By: #### L 100.0100, L500.4050, L500.3400, L300.8000, L503.7505, L501.2450 ####[facility] [address] [place], [address] MCH (RBC) [Entitic mass] 32.1 pg High 27.0-32.0 [facility] Comment on above: Performed By: #### L 100.0100, L500.4050, L500.3400, L300.8000, L503.7505, L501.2450 ####[facility] [address] [place], [address] MCHC (RBC) [Mass/Vol] 32.8 g/dL Normal 32-36 [facility] Comment on above: Performed By: #### L 100.0100, L500.4050, L500.3400, L300.8000, L503.7505, L501.2450 ####[facility] [address] [place], [address] MCV (RBC) [Entitic vol] 97.8 fL Normal 81-99 [facility] Comment on above: Performed By: #### L 100.0100, L500.4050, L500.3400, L300.8000, L503.7505, L501.2450 ####[facility] [address] [place], [address] Monocytes/100 WBC (Bld) 1.5 % Normal 0-10 [facility] Comment on above: Performed By: #### L 100.0100, L500.4050, L500.3400, L300.8000, L503.7505, L501.2450 ####[facility] [address] [place], [address] Neutrophils/100 WBC (Bld) 94.7 % High 47-70 [facility] Comment on above: Performed By: #### L 100.0100, L500.4050, L500.3400, L300.8000, L503.7505, L501.2450 ####[facility] [address] [place], [address] Nucleated RBC (Bld) [#/Vol] 0 10*3/uL Normal 0-5 [facility] Comment on above: Performed By: #### L 100.0100, L500.4050, L500.3400, L300.8000, L503.7505, L501.2450 ####[facility] [address] [place], [address] Platelet mean volume (Bld) [Entitic vol] 10.3 fL Normal 6.2-12.0 [facility] Comment on above: Performed By: #### L 100.0100, L500.4050, L500.3400, L300.8000, L503.7505, L501.2450 ####[facility] [address] [place], [address] Platelets (Bld) [#/Vol] 303 10*3/uL Normal 150-450 [facility] Comment on above: Performed By: #### L 100.0100, L500.4050, L500.3400, L300.8000, L503.7505, L501.2450 ####[facility] [address] [place], [address] RBC (Bld) [#/Vol] 4.11 10*6/uL Low 4.2-5.4 [facility] Comment on above: Performed By: #### L 100.0100, L500.4050, L500.3400, L300.8000, L503.7505, L501.2450 ####[facility] [address] [place], [address] RDW SD 51.0 fl High 35.1-43.9 [facility] Comment on above: Performed By: #### L 100.0100, L500.4050, L500.3400, L300.8000, L503.7505, L501.2450 ####[facility] [id number] [address], [address] WBC (Bld) [#/Vol] 14.3 10*3/uL High 4.4-11.0 [facility] Comment on above: Performed By: #### L 100.0100, L500.4050, L500.3400, L300.8000, L503.7505, L501.2450 ####[facility] [address] [place], [address] CTA Chest W/WO Contraston CTA Chest W/WO Contrast Normal [facility] Carbon dioxide, total [Moles /volume] in Central venous bloodOrdered By: Carlos Nair on 07-20-2024 CO2 [Moles/Vol] 19.0 mmol/L Low 21.0-32.0 [facility] Chest 1 View (Portable)on Chest 1 View (Portable) Normal [facility] Chloride assayOrdered By: Brandy Nair on 07-20-2024 Chloride [Moles/Vol] 104 mmol/L 98-108 [facility] Comprehensive Metabolic Prof ilon 07-20-2024 Albumin/Globulin [Mass ratio] 1.7 {ratio} Normal 0.9-2.4 [facility] Comment on above: Performed By: #### L 100.0100, L500.4050, L500.3400, L300.8000, L503.7505, L501.2450 ####[facility] [address] [place], [address] BUN/CRE 21.8 RATIO High 10-20 [facility] Comment on above: Performed By: #### L 100.0100, L500.4050, L500.3400, L300.8000, L503.7505, L501.2450 ####[facility] [address] [place], [address] Calcium [Mass/Vol] 9.3 mg/dL Normal 7.6-11.0 [facility] Comment on above: Performed By: #### L 100.0100, L500.4050, L500.3400, L300.8000, L503.7505, L501.2450 ####[facility] [address] [place], [address] Chloride [Moles/Vol] 104 mmol/L Normal 98-108 [facility] Comment on above: Performed By: #### L 100.0100, L500.4050, L500.3400, L300.8000, L503.7505, L501.2450 ####[facility] [address] [place], [address] CO2 [Moles/Vol] 19.0 mmol/L Low 21.0-32.0 [facility] Comment on above: Performed By: #### L 100.0100, L500.4050, L500.3400, L300.8000, L503.7505, L501.2450 ####[facility] [address] [place], [address] Creatinine [Mass/Vol] 0.88 mg/dL Normal 0.70-1.20 [facility] Comment on above: Performed By: #### L 100.0100, L500.4050, L500.3400, L300.8000, L503.7505, L501.2450 ####[facility] [address] [place], [address] ECRCL 70.45 ml/min Normal 50-250 [facility] Comment on above: Performed By: #### L 100.0100, L500.4050, L500.3400, L300.8000, L503.7505, L501.2450 ####[facility] [address] [place], [address] GAP 13 Normal 5-15 [facility] Comment on above: Performed By: #### L 100.0100, L500.4050, L500.3400, L300.8000, L503.7505, L501.2450 ####[facility] [address] [place], [address] GFR/1.73 sq M.predicted among non-blacks MDRD (S/P/Bld) [Vol rate/Area] 83 mL/min/{1.73_m2} Normal >60 [facility] Comment on above: Result Comment: mL/m in/1.73m2 CKD-EPI Creatinine Equation (2020) Performed By: #### L 100.0100, L500.4050, L500.3400, L300.8000, L503.7505, L501.2450 ####[facility] [address] [place], [address] Glucose [Mass/Vol] 171 mg/dL High 70-99 [facility] Comment on above: Performed By: #### L 100.0100, L500.4050, L500.3400, L300.8000, L503.7505, L501.2450 ####[facility] [address] [place], [address] Potassium [Moles/Vol] 4.4 mmol/L Normal 3.3-5.1 [facility] Comment on above: Performed By: #### L 100.0100, L500.4050, L500.3400, L300.8000, L503.7505, L501.2450 ####[facility] [address] [place], [address] Sodium [Moles/Vol] 135 mmol/L Normal 133-145 [facility] Comment on above: Performed By: #### L 100.0100, L500.4050, L500.3400, L300.8000, L503.7505, L501.2450 ####[facility] [address] [place], [place], [address] Urea nitrogen [Mass/Vol] 19 mg/dL Normal 4-19 [facility] Comment on above: Performed By: #### L 100.0100, L500.4050, L500.3400, L300.8000, L503.7505, L501.2450 ####[facility] [address] [place], [address] D-Dimer Quantitative (DVT/PE )on 07-20-2024 D-DIMER QUANT 1.06 FEU/ug/m Invalid Interpretation Code 0.27-0.49 [facility] Comment on above: Result Comment: D-Di denice ELEVATED (>0.49): Additional studies and clinicalassessments are indicated to conclude diagnosis of:Deep Vein Thrombosis (DVT) or Pulmonary Embolism (PE)CRITICAL VALUE CALLED TO 07/20/242006 Fred Aguilera.RESULTS READ BACK BY SAME. Performed By: #### L 100.0100, L500.4050, L500.3400, L300.8000, L503.7505, L501.2450 ####[facility] [address] [place], [place], [id number] Emergency Department Summary on 07-20-2024 Emergency Department Summary Normal [facility] Eosinophil percentageOrdered By: Carlos Nair on 07-20-2024 Eosinophils/100 WBC (Bld) 0.0 % 0-5 [facility] Erythrocyte distribution wid th ratioOrdered By: Carlos Niar on 07-20-2024 Erythrocyte distribution width (RBC) [Ratio] 14.1 % 11.6-14.6 [facility] Erythrocyte distribution wid th standard deviationOrdered By: Carlos Nair on 07-20-2024 Erythrocyte distribution width (RBC) [Ratio] 51.0 fl High 35.1-43.9 [facility] Glomerular filtration rate ( GFR) estimation/1.73 sq m using serum, plasma, or whole bOrdered By: Carlos Nair on 07-20-2024 GFR/1.73 sq M.predicted among non-blacks MDRD (S/P/Bld) [Vol rate/Area] 83 mL/min/{1.73_m2} >60 [facility] Comment on above: mL/min/1.73m2 CKD-EP I Creatinine Equation (2020) H AND P Exam - Hospitaliston 07-20-2024 H&P Exam - Hospitalist Normal [facility] Hematocrit Auto (Bld) [Volum e fraction]Ordered By: Carlos Nair on 07-20-2024 Hematocrit (Bld) [Volume fraction] 40.2 % 37-47 [facility] Hemoglobin A1c percentageOrd ered By: Sergio Whalen on 07-20-2024 HbA1c (Bld) [Mass fraction] 5.6 % <5.7 [facility] Comment on above: Normal < 5.7 % Predi abetic 5.7 - 6.4 % Diabetic >or= 6.5 % Please note range changes. Hemoglobin measurementOrdere d By: Carlos Nair on 07-20-2024 Hemoglobin (Bld) [Mass/Vol] 13.2 g/dL 12.0-15.0 [facility] Hyaline casts LM.LPF (Urine sed) [#/Area]Ordered By: Carlos Nair on 07-20-2024 Hyaline casts (Urine sed) [#/Area] 5 /[LPF] 0-5 [facility] Immature granulocytes/100 WB C Auto (Bld)Ordered By: Carlos Nair on 07-20-2024 Immature granulocytes/100 WBC (Bld) 1.000 % High 0.0-0.9 [facility] Comment on above: IG% - Immature Granu locytes (promyelocytes, myelocytes and metamyelocytes) > 1% indicates that a LEFT SHIFT is Present. Ketones Test strip Ql (U)Ord ered By: Carlos Nair on 07-20-2024 Ketones Ql (U) Negative Negative [facility] L499.0042on 07-20-2024 Trop T High Sen 36 ng/L High <=14 [facility] Comment on above: Performed By: #### L 499.0042 ####[facility] [address] [place], [address] L501.4021on 07-20-2024 Trop T High Sen 27 ng/L High <=14 [facility] Comment on above: Performed By: #### L 501.4021 ####[facility] [address] [place], [address] L503.7505on 07-20-2024 Natriuretic peptide B (Bld) [Mass/Vol] 6468 pg/mL High <=450 [facility] Comment on above: Result Comment: Hear t Failure Unlikely: < 300 pg/mLHeart Failure Likely< 50 Years: > 450 pg/mL50-75 Years: > 900 pg/mL>75 Years: > 1800 pg/mL Performed By: #### L 100.0100, L500.4050, L500.3400, L300.8000, L503.7505, L501.2450 ####[facility] [address] [place], [address] Laboratory - Chemistry and C hemistry - challengeOrdered By: Carlos Nair on 07-20-2024 AST [Catalytic activity/Vol] 26 U/L <32 [facility] Lipaseon 07-20-2024 Lipase [Catalytic activity/Vol] 32 U/L Normal 13-75 [facility] Comment on above: Result Comment: Liam rader note:LIPASE revised reference range effective 22.New Lipase methodology. Expected to produce lower valuesthan the previous assay method.NEW Reference Range: 13 - 75 U/L Performed By: #### L 100.0100, L500.4050, L500.3400, L300.8000, L503.7505, L501.2450 ####[facility] [address] [place], [place], [address] Lipase measurementOrdered By : Carlos Nair on 07-20-2024 Lipase [Catalytic activity/Vol] 32 U/L 13-75 [facility] Comment on above: Please note:LIPASE r evised reference range effective 22. New Lipase methodology. Expected to produce lower values than the previous assay method. NEW Reference Range: 13 - 75 U/L Liver Profileon 07-20-2024 Albumin [Mass/Vol] 4.3 g/dL Normal 3.5-5.0 [facility] Comment on above: Performed By: #### L 100.0100, L500.4050, L500.3400, L300.8000, L503.7505, L501.2450 ####[facility] [address] [place], [address] ALK PHOS 116 U/L High 35-104 [facility] Comment on above: Performed By: #### L 100.0100, L500.4050, L500.3400, L300.8000, L503.7505, L501.2450 ####[facility] [address] [place], [address] ALT [Catalytic activity/Vol] 34 U/L Normal <=34 [facility] Comment on above: Performed By: #### L 100.0100, L500.4050, L500.3400, L300.8000, L503.7505, L501.2450 ####[facility] [address] [place], [address] AST [Catalytic activity/Vol] 26 U/L Normal <=31 [facility] Comment on above: Performed By: #### L 100.0100, L500.4050, L500.3400, L300.8000, L503.7505, L501.2450 ####[facility] [address] [place], [address] Bilirubin [Mass/Vol] 0.61 mg/dL Normal 0.00-1.30 [facility] Comment on above: Performed By: #### L 100.0100, L500.4050, L500.3400, L300.8000, L503.7505, L501.2450 ####[facility] [address] [place], [address] Bilirubin.direct [Mass/Vol] 0.29 mg/dL Normal 0.00-0.30 [facility] Comment on above: Performed By: #### L 100.0100, L500.4050, L500.3400, L300.8000, L503.7505, L501.2450 ####[facility] [address] [place], [address] Globulin (S) [Mass/Vol] 2.5 g/dL Normal 2.2-4.2 [facility] Comment on above: Performed By: #### L 100.0100, L500.4050, L500.3400, L300.8000, L503.7505, L501.2450 ####[facility] [address] [place], [address] T PROT 6.8 g/dL Normal 5.9-8.4 [facility] Comment on above: Performed By: #### L 100.0100, L500.4050, L500.3400, L300.8000, L503.7505, L501.2450 ####[facility] [address] [place], [address] MCV (mean corpuscular volume ) determinationOrdered By: Carlos Nair on 07-20-2024 MCV (RBC) [Entitic vol] 97.8 fL 81-99 [facility] Magnesium measurement (mass/ volume)Ordered By: Sergio Whalen on 07-20-2024 Magnesium (Unsp spec) [Mass/Vol] 1.9 mg/dL 1.5-2.2 [facility] Mean corpuscular hemoglobin (MCH) determinationOrdered By: Carlos Nair on 07-20-2024 MCH (RBC) [Entitic mass] 32.1 pg High 27.0-32.0 [facility] Mean corpuscular hemoglobin concentration (MCHC) determinationOrdered By: Carlos Nair on 07-20-2024 MCHC (RBC) [Mass/Vol] 32.8 g/dL 32-36 [facility] Mean platelet volume determi nationOrdered By: Carlos Nair on 07-20-2024 Platelet mean volume (Bld) [Entitic vol] 10.3 fL 6.2-12.0 [facility] Microscopic analysis of urin e for red blood cells (RBC)Ordered By: Carlos Nair on 07-20-2024 Microscopic analysis of urine for red blood cells (RBC) 0-5 SEEN /hpf 0-5 [facility] Monocyte percentageOrdered B y: Carlos Nair on 07-20-2024 Monocytes/100 WBC (Bld) 1.5 % 0-10 [facility] Mucus LM Ql (Urine sed)Order ed By: Carlos Nair on 07-20-2024 Mucus Ql (Urine sed) 1+ /hpf [facility] Natriuretic peptide.B prohor abbey N-Terminal [Mass/volume] in Serum or PlasmaOrdered By: Carlos Nair on 07-20-2024 Natriuretic peptide.B prohormone N-Terminal [Mass/Vol] 6468 pg/mL High <450 [facility] Comment on above: Heart Failure Unlike ly: < 300 pg/mLHeart Failure Likely< 50 Years: > 450 pg/mL50-75 Years: > 900 pg/mL>75 Years: > 1800 pg/mL Neutrophil percentageOrdered By: Carlos Nair on 07-20-2024 Neutrophils/100 WBC (Bld) 94.7 % High 47-70 [facility] Nitrite Test strip Ql (U)Ord ered By: Carlos Nair on 07-20-2024 Nitrite Ql (U) Negative Negative [facility] Nucleated red blood cell per centageOrdered By: Carlos Nair on 07-20-2024 Nucleated RBC/100 WBC (Bld) [Ratio] 0 % 0-5 [facility] Platelet countOrdered By: Brandy Nair on 07-20-2024 Platelets (Bld) [#/Vol] 303 10*3/uL 150-450 [facility] Potassium measurement (mass/ volume)Ordered By: Carlos Nair on 07-20-2024 Potassium (Unsp spec) [Mass/Vol] 4.4 mmol/L 3.3-5.1 [facility] ,Urineon 07-20-2024 Beta HCG ( test) Ql (U) Negative Normal [facility] Comment on above: Result Comment: Very dilute urine specimens, as indicated by a low specificgravity, may not contain goodwill representative levels of hCG.If is still suspected, a first morning urinespecimen should be collected 48 hours later and tested. Performed By: #### L 400.0001, L400.7600 ####[facility] [address] [place], [address] Protein Test strip Ql (U)Ord ered By: Carlos Nair on 07-20-2024 Protein Ql (U) 100 mg/dl High Negative [facility] RBC Auto (Bld) [#/Vol]Ordere d By: Carlos Nair on 07-20-2024 RBC (Bld) [#/Vol] 4.11 10*6/uL Low 4.2-5.4 [facility] Serum creatinine measurement (mass/volume)Ordered By: Carlos Nair on 07-20-2024 Creatinine [Mass/Vol] 0.88 mg/dL 0.70-1.20 [facility] Serum globulin measurementOr dered By: Carlos Nair on 07-20-2024 Globulin (S) [Mass/Vol] 2.5 g/dL 2.2-4.2 [facility] Serum glucose measurement (m ass/volume)Ordered By: Carlos Nair on 07-20-2024 Glucose [Mass/Vol] 171 mg/dL High 70-99 [facility] Serum or plasma alanine hair otransferase (ALT) measurementOrdered By: Carlos Nair on 07-20-2024 ALT [Catalytic activity/Vol] 34 U/L <35 [facility] Serum or plasma albumin leslie urement (mass/volume)Ordered By: Carlos Nair on 07-20-2024 Albumin [Mass/Vol] 4.3 g/dL 3.5-5.0 [facility] Serum or plasma albumin/glob ulin mass ratioOrdered By: Carlos Nair on 07-20-2024 Albumin/Globulin [Mass ratio] 1.7 {ratio} 0.9-2.4 [facility] Serum or plasma alkaline delfin sphatase measurementOrdered By: Carlos Nair on 07-20-2024 ALP [Catalytic activity/Vol] 116 U/L High 35-104 [facility] Serum or plasma calcium leslie urement (mass/volume)Ordered By: Carlos Nair on 07-20-2024 Calcium [Mass/Vol] 9.3 mg/dL 7.6-11.0 [facility] Serum or plasma urea nitroge n measurement (mass/volume)Ordered By: Carlos Nair on 07-20-2024 Urea nitrogen [Mass/Vol] 19 mg/dL 4-19 [facility] Sodium levelOrdered By: Andrae Nair on 07-20-2024 Sodium [Moles/Vol] 135 mmol/L 133-145 [facility] Squamous epithelial cells de tection in urine sediment by light microscopyOrdered By: Carlos Nair on 07-20-2024 Epithelial cells.squamous LM Ql (Urine sed) 5-10 SEEN /hpf 5-10 [facility] TSH DL <= 0.005 mIU/L QnOrde red By: Sergio Whalen on 07-20-2024 TSH Qn 1.400 uIU/mL 0.300-4.20 0 [facility] Total proteinOrdered By: Jacinto Nair on 07-20-2024 Protein [Mass/Vol] 6.8 g/dL 5.9-8.4 [facility] Troponin T.cardiac [Mass/vol ume] in Serum or Plasma by High sensitivity methodOrdered By: Carlos Nair on 07-20-2024 Troponin T.cardiac High sensitivity method [Mass/Vol] 37 ng/L High <14 [facility] Troponin T.cardiac High sensitivity method [Mass/Vol] 36 ng/L High <14 [facility] Troponin T.cardiac High sensitivity method [Mass/Vol] 27 ng/L High <14 [facility] Urinalysis, Completeon 07-20 BACTERIA 2+ /hpf Normal None Seen [facility] Comment on above: Order Comment: CLEAN CATCH Performed By: #### L 400.0001, L400.7600 ####[facility] [address] [place], [address] CAST,HYALINE 5-10 SEEN Normal 0-5 [facility] Comment on above: Order Comment: CLEAN CATCH Performed By: #### L 400.0001, L400.7600 ####[facility] [address] [place], [address] EPI,SQUAMOUS 5-10 SEEN Normal 5-10 [facility] Comment on above: Order Comment: CLEAN CATCH Performed By: #### L 400.0001, L400.7600 ####[facility] [address] [place], [address] Mucus Ql (Urine sed) 1+ /hpf Normal [facility] Comment on above: Order Comment: CLEAN CATCH Performed By: #### L 400.0001, L400.7600 ####[facility] [address] [place], [address] RBC 0-5 SEEN Normal 0-5 [facility] Comment on above: Order Comment: CLEAN CATCH Performed By: #### L 400.0001, L400.7600 ####[facility] [address] [place], [address] BILIRUBIN URINE Negative Normal Negative [facility] Comment on above: Order Comment: CLEAN CATCH Performed By: #### L 400.0001, L400.7600 ####[facility] [address] [place], [address] Clarity (U) Clear Normal Clear [facility] Comment on above: Order Comment: CLEAN CATCH Performed By: #### L 400.0001, L400.7600 ####[facility] [address] [place], [address] Color (U) Straw Normal Yellow [facility] Comment on above: Order Comment: CLEAN CATCH Performed By: #### L 400.0001, L400.7600 ####[facility] [address] [place], [address] GLUCOSE, UR Normal Normal Normal [facility] Comment on above: Order Comment: CLEAN CATCH Performed By: #### L 400.0001, L400.7600 ####[facility] [address] [place], [address] KETONE UR Negative Normal Negative [facility] Comment on above: Order Comment: CLEAN CATCH Performed By: #### L 400.0001, L400.7600 ####[facility] [address] [place], [address] LEUK ESTERASE Negative Normal Negative [facility] Comment on above: Order Comment: CLEAN CATCH Performed By: #### L 400.0001, L400.7600 ####[facility] [address] [place], [address] Nitrite Ql (U) Negative Normal Negative [facility] Comment on above: Order Comment: CLEAN CATCH Performed By: #### L 400.0001, L400.7600 ####[facility] [address] [place], [address] OCCULT BLOOD-UR 25 /ul Abnormal Negative [facility] Comment on above: Order Comment: CLEAN CATCH Performed By: #### L 400.0001, L400.7600 ####[facility] [address] [place], [address] pH UR 6.0 Normal 5.0 - 8.0 [facility] Comment on above: Order Comment: CLEAN CATCH Performed By: #### L 400.0001, L400.7600 ####[facility] [address] [place], [address] PROT DIPSTX 100 mg/dl Abnormal Negative [facility] Comment on above: Order Comment: CLEAN CATCH Performed By: #### L 400.0001, L400.7600 ####[facility] [address] [place], [address] SP.GR. DIPSTX 1.020 Normal 1.002-1.03 0 [facility] Comment on above: Order Comment: CLEAN CATCH Performed By: #### L 400.0001, L400.7600 ####[facility] [address] [place], [address] UROBILI Normal Normal Normal [facility] Comment on above: Order Comment: CLEAN CATCH Performed By: #### L 400.0001, L400.7600 ####[facility] [address] [place], [address] WBC 0 SEEN Normal 0-5 [facility] Comment on above: Order Comment: CLEAN CATCH Performed By: #### L 400.0001, L400.7600 ####[facility] [address] [place], [address] Urine clarityOrdered By: Jacinto Nair on 07-20-2024 Clarity (U) Clear Clear [facility] Urine color determinationOrd ered By: Carlos Nair on 07-20-2024 Color (U) Straw Yellow [facility] Urine glucose detectionOrder ed By: Carlos Nair on 07-20-2024 Glucose Ql (U) Normal mg/dl Normal [facility] Urine leukocyte esterase det ection by dipstickOrdered By: Carlos Nair on 07-20-2024 Leukocyte esterase Test strip Ql (U) Negative Negative [facility] Urine pHOrdered By: Carlos mandel on 07-20-2024 pH (U) 6.0 [pH] 5.0 - 8.0 [facility] Urine testOrdered By: Carlos Nair on 07-20-2024 HCG ( test) Ql (U) Negative [facility] Comment on above: Very dilute urine sp ecimens, as indicated by a low specificgravity, may not contain goodwill representative levels of hCG. If is still suspected, a first morning urinespecimen should be collected 48 hours later and tested. Urine sediment bacteria coun t by microscopy (number/high power field)Ordered By: Carlos Nair on 07-20-2024 Bacteria LM.HPF (Urine sed) [#/Area] 2 /[HPF] None Seen [facility] Urine specific gravity measu rementOrdered By: Carlos Nair on 07-20-2024 Specific gravity (U) [Rel density] 1.020 1.002-1.03 0 [facility] Urine urobilinogen measureme ntOrdered By: Carlos Nair on 07-20-2024 Urobilinogen Ql (U) Normal mg/dl Normal [facility] White blood cell (WBC) count Ordered By: Carlos Nair on 07-20-2024 WBC (Bld) [#/Vol] 14.3 10*3/uL High 4.4-11.0 [facility] White blood cell countOrdere d By: Carlos Nair on 07-20-2024 White blood cell count 0 SEEN /hpf 0-5 [facility] Colonoscopy Reporton 025 Colonoscopy Report Normal [facility] EGD Reporton 07-12-2024 EGD Report Normal [facility] MR/POSTOP.ANEon 07-12-2024 MR/POSTOP.ANE [facility] MR/CMJJNADA9fv 07-12-2024 MR/POSTOPAN2 [facility] Surgery Specimen Level Amber 07-12-2024 Surgery Specimen Level IV [facility] Comment on above: Performed By: #### P SUIV ####[facility] [address] [place], [place], [address] MR/PAT.ANEon 07-11-2024 MR/PAT.ANE Normal [facility] 12 Lead EKG performed by [facility] on 07-10-2024 12 Lead EKG performed by [facility] Cardiology Visit Reporton Cardiology Visit Report Normal [facility] MR/PAT.ANEon 07-10-2024 MR/PAT.ANE Normal [facility] CASE MANAGEMon 07-08-2024 CASE MANAGEM [facility] CNDSon 07-08-2024 CNDS [facility] CBC W Auto Differential pane l (Bld)on 07-07-2024 Basophils (Bld) [#/Vol] 0.03 10*3/uL Normal <0.11 [facility] Comment on above: Order Comment: Speci men Type: BLOOD SPECIMENOrdering Facility: [facility] Address: [address] [place] [address] Performed By: #### 5 7021-8 ####[facility]ORY[facility] [id number] [place] [address] [place] Basophils/100 WBC (Bld) 0.3 % Normal [facility] Comment on above: Order Comment: Speci men Type: BLOOD SPECIMENOrdering Facility: [facility] Address: [address] [place] [address] Performed By: #### 5 7021-8 ####[facility] [id number] [address] OF [facility] Differential cell count method Nom (Bld) Auto Normal [facility] Comment on above: Order Comment: Speci men Type: BLOOD SPECIMENOrdering Facility: [facility] Address: [address] [place] [address] Performed By: #### 5 7021-8 ####[facility]ORY[facility] [id number] [place] [address] [place] Eosinophils (Bld) [#/Vol] 0.12 10*3/uL Normal <0.46 [facility] Comment on above: Order Comment: Speci men Type: BLOOD SPECIMENOrdering Facility: [facility] Address: [address] [place] [address] Performed By: #### 5 7021-8 ####[facility]ORY[facility] [id number] [address] [place] [facility] Eosinophils/100 WBC (Bld) 1.4 % Normal [facility] Comment on above: Order Comment: Speci men Type: BLOOD SPECIMENOrdering Facility: [facility] Address: [address] [place] [address] Performed By: #### 5 7021-8 ####[facility]ORY[facility] [id number] [place] [address] [place] Erythrocyte distribution width (RBC) [Ratio] 14.4 % Normal 11.5-15.0 [facility] Comment on above: Order Comment: Speci men Type: BLOOD SPECIMENOrdering Facility: [facility] Address: [address] [place] [address] Performed By: #### 5 7021-8 ####[facility]ORYCL[facility] [id number] [place] [address] [place] Hematocrit (Bld) [Volume fraction] 41.1 % Normal 36.0-46.0 [facility] Comment on above: Order Comment: Speci men Type: BLOOD SPECIMENOrdering Facility: [facility] Address: [address] [place] [address] Performed By: #### 5 7021-8 ####[facility]ORYCL[facility] [id number] [address] [place] Hemoglobin (Bld) [Mass/Vol] 13.4 g/dL Normal 11.5-15.5 [facility] Comment on above: Order Comment: Speci men Type: BLOOD SPECIMENOrdering Facility: [facility] Address: [address] [place] [address] Performed By: #### 5 7021-8 ####[facility] LABORATORYCLIA [id number] [place] [address] [place] Immature granulocytes (Bld) [#/Vol] 0.03 10*3/uL Normal <0.10 [facility] Comment on above: Order Comment: Speci men Type: BLOOD SPECIMENOrdering Facility: [facility] Address: [address] [place] [address] Performed By: #### 5 7021-8 ####[facility] LABORATORYCLIA [id number] [place] [address] [place] Immature granulocytes/100 WBC (Bld) 0.3 % Normal [facility] Comment on above: Order Comment: Speci men Type: BLOOD SPECIMENOrdering Facility: [facility] Address: [address] [place] [address] Performed By: #### 5 7021-8 ####[facility] LABORATORYCLIA [id number] [address] Lymphocytes (Bld) [#/Vol] 0.98 10*3/uL Low 1.00-4.00 [facility] Comment on above: Order Comment: Speci men Type: BLOOD SPECIMENOrdering Facility: [facility] Address: [address] [place] [address] Performed By: #### 5 7021-8 ####[facility] LABORATORYCLIA [id number] [address] Lymphocytes/100 WBC (Bld) 11.1 % Normal [facility] Comment on above: Order Comment: Speci men Type: BLOOD SPECIMENOrdering Facility: [facility] Address: [address] [place] [address] Performed By: #### 5 7021-8 ####[facility] LABORATORYCLIA [id number] [address] MCH (RBC) [Entitic mass] 31.8 pg Normal 26.0-34.0 [facility] Comment on above: Order Comment: Speci men Type: BLOOD SPECIMENOrdering Facility: [facility] Address: [address] [place] [address] Performed By: #### 5 7021-8 ####[facility] LABORATORYCLIA [id number] [address] MCHC (RBC) [Mass/Vol] 32.6 g/dL Normal 30.5-36.0 [facility] Comment on above: Order Comment: Speci men Type: BLOOD SPECIMENOrdering Facility: [facility] Address: [address] [place] [address] Performed By: #### 5 7021-8 ####[facility] LABORATORYCLIA [id number] [address] MCV (RBC) [Entitic vol] 97.6 fL Normal 80.0-100.0 [facility] Comment on above: Order Comment: Speci men Type: BLOOD SPECIMENOrdering Facility: [facility] Address: [address] [place] [address] Performed By: #### 5 7021-8 ####[facility] LABORATORYCLIA [id number] [place] [address] [place] Monocytes (Bld) [#/Vol] 0.44 10*3/uL Normal <0.87 [facility] Comment on above: Order Comment: Speci men Type: BLOOD SPECIMENOrdering Facility: [facility] Address: [address] [place] [address] Performed By: #### 5 7021-8 ####[facility] LABORATORYCLIA [id number] [place] [address] [place] Monocytes/100 WBC (Bld) 5.0 % Normal [facility] Comment on above: Order Comment: Speci men Type: BLOOD SPECIMENOrdering Facility: [facility] Address: [address] [place] [address] Performed By: #### 5 7021-8 ####[facility] LABORATORYCLIA [id number] [place] [address] [place] Neutrophils (Bld) [#/Vol] 7.19 10*3/uL Normal 1.45-7.50 [facility] Comment on above: Order Comment: Speci men Type: BLOOD SPECIMENOrdering Facility: [facility] Address: [address] [place] [address] Performed By: #### 5 7021-8 ####[facility] LABORATORYCLIA [id number] [address] [place] Neutrophils/100 WBC (Bld) 81.9 % Normal [facility] Comment on above: Order Comment: Speci men Type: BLOOD SPECIMENOrdering Facility: [facility] Address: [address] [place] [address] Performed By: #### 5 7021-8 ####[facility] LABORATORYCLIA [id number] [place] [address] [place] Nucleated RBC (Bld) [#/Vol] 10*3/uL Normal <0.01 [facility] Comment on above: Order Comment: Speci men Type: BLOOD SPECIMENOrdering Facility: [facility] Address: [address] [place] [address] Performed By: #### 5 7021-8 ####[facility] LABORATORYCLIA [id number] [place] [address] [place] Nucleated RBC/100 WBC (Bld) [Ratio] 0.0 /[address] [facility] Comment on above: Order Comment: Speci men Type: BLOOD SPECIMENOrdering Facility: [facility] Address: [address] [place] [address] Performed By: #### 5 7021-8 ####[facility] LABORATORYCLIA [id number] [place] [address] [place] Platelet mean volume (Bld) [Entitic vol] 10.3 fL Normal 9.0-12.7 [facility] Comment on above: Order Comment: Speci men Type: BLOOD SPECIMENOrdering Facility: [facility] Address: [address] [place] [address] Performed By: #### 5 7021-8 ####[facility] LABORATORYCLIA [id number] [address] [place] Platelets (Bld) [#/Vol] 241 10*3/uL Normal 150-400 [facility] Comment on above: Order Comment: Speci men Type: BLOOD SPECIMENOrdering Facility: [facility] Address: [address] [place] [address] Performed By: #### 5 7021-8 ####[facility] LABORATORYCLIA [id number] [place] [address] [place] RBC (Bld) [#/Vol] 4.21 10*6/uL Normal 3.90-5.20 [facility] Comment on above: Order Comment: Speci men Type: BLOOD SPECIMENOrdering Facility: [facility] Address: [address] [place] [address] Performed By: #### 5 7021-8 ####[facility] LABORATORYCLIA [id number] [place] [address] [place] WBC (Bld) [#/Vol] 8.79 10*3/uL Normal 3.70-11.00 [facility] Comment on above: Order Comment: Speci men Type: BLOOD SPECIMENOrdering Facility: [facility] Address: [address] [place] [address] Performed By: #### 5 7021-8 ####[facility] LABORATORYCLIA [id number] [place] [address] [place] CONSULT PROGon 07-07-[address] [facility] Comprehensive metabolic 2000 panelon 07-07-2024 Albumin [Mass/Vol] 3.7 g/dL Low 3.9-4.9 [facility] Comment on above: Order Comment: Speci men Type: BLOOD SPECIMENOrdering Facility: [facility] Address: [address] [place] [address] Performed By: #### 2 4323-8 ####[facility] LABORATORYCLIA [id number] [address] [place] ALP [Catalytic activity/Vol] 118 U/L Normal 34-123 [facility] Comment on above: Order Comment: Speci men Type: BLOOD SPECIMENOrdering Facility: [facility] Address: [address] [place] [address] Performed By: #### 2 4323-8 ####[facility] LABORATORYCLIA [id number] [address] [place] [facility] ALT [Catalytic activity/Vol] 24 U/L Normal 7-38 [facility] Comment on above: Order Comment: Speci men Type: BLOOD SPECIMENOrdering Facility: [facility] Address: [address] [place] [address] Performed By: #### 2 4323-8 ####[facility] LABORATORYCLIA [id number] [address] [facility] Anion gap [Moles/Vol] 10 mmol/L Normal 8-15 [facility] Comment on above: Order Comment: Speci men Type: BLOOD SPECIMENOrdering Facility: [facility] Address: [address] [place] [address] Performed By: #### 2 4323-8 ####[facility] LABORATORYCLIA [id number] [address] [place] AST [Catalytic activity/Vol] 20 U/L Normal 13-35 [facility] Comment on above: Order Comment: Speci men Type: BLOOD SPECIMENOrdering Facility: [facility] Address: [address] [place] [address] Performed By: #### 2 4323-8 ####[facility] LABORATORYCLIA [id number] [place] [address] [place] Bilirubin [Mass/Vol] 1.3 mg/dL Normal 0.2-1.3 [facility] Comment on above: Order Comment: Speci men Type: BLOOD SPECIMENOrdering Facility: [facility] Address: [address] [place] [address] Performed By: #### 2 4323-8 ####[facility] LABORATORYCLIA [id number] [place] [address] [place] Calcium [Mass/Vol] 9.0 mg/dL Normal 8.5-10.2 [facility] Comment on above: Order Comment: Speci men Type: BLOOD SPECIMENOrdering Facility: [facility] Address: [address] [place] [address] Performed By: #### 2 4323-8 ####[facility] LABORATORYCLIA [id number] [place] [address] [place] Chloride [Moles/Vol] 104 mmol/L Normal 98-107 [facility] Comment on above: Order Comment: Speci men Type: BLOOD SPECIMENOrdering Facility: [facility] Address: [address] [place] [address] Performed By: #### 2 4323-8 ####[facility] LABORATORYCLIA [id number] [place] [address] [place] CO2 [Moles/Vol] 25 mmol/L Normal 22-30 [facility] Comment on above: Order Comment: Speci men Type: BLOOD SPECIMENOrdering Facility: [facility] Address: [address] [place] [address] Performed By: #### 2 4323-8 ####[facility] LABORATORYCLIA [id number] [place] [address] [place] Creatinine [Mass/Vol] 0.81 mg/dL Normal 0.58-0.96 [facility] Comment on above: Order Comment: Speci men Type: BLOOD SPECIMENOrdering Facility: [facility] Address: [address] [place] [address] Performed By: #### 2 4323-8 ####[facility] LABORATORYCLIA [id number] [place] [address] [place] Creatinine and Glomerular filtration rate.predicted panel (S/P/Bld) 92 mL/min/1.73m??? Normal >=60 [facility] Comment on above: Order Comment: David horton Type: BLOOD SPECIMENOrdering Facility: [facility] Address: [address] [place] [address] Result Comment: Vidal mated Glomerular Filtration Rate [...] Performed By: #### 2 4323-8 ####[facility] LABORATORYCLIA [id number] [place] [id number] [place] Glucose [Mass/Vol] 104 mg/dL High 74-99 [facility] Comment on above: Order Comment: David horton Type: BLOOD SPECIMENOrdering Facility: [facility] Address: [address] [place] [address] Result Comment: The [place] [employer] (ADA) provides guidance for cutoff values for fasting glucose and random glucose. The ADA defines fasting as no caloric intake for at least 8 hours. Fasting plasma glucose results between 100 to 125 mg/dL indicate increased risk for diabetes (prediabetes).Fasting plasma glucose results greater than or equal to 126 mg/dL meet the criteria for diagnosis of diabetes. In the absence of unequivocal hyperglycemia, results should be confirmed by repeat testing. In a patient with classic symptoms of hyperglycemia or hyperglycemic crisis, random plasma glucose results greater than or equal to 200 mg/dL meet the criteria for diagnosis of diabetes.Reference: Standards of Medical Care in Diabetes 2016, [place] [employer]. Diabetes Care. 2016.39(Suppl 1). Performed By: #### 2 4323-8 ####[facility] LABORATORYCLIA [id number] [place] [address] [place] Potassium [Moles/Vol] 4.1 mmol/L Normal 3.7-5.1 [facility] Comment on above: Order Comment: Speci men Type: BLOOD SPECIMENOrdering Facility: [facility] Address: [address] [place] [address] Performed By: #### 2 4323-8 ####[facility] LABORATORYCLIA [id number] [place] [address] [place] Protein [Mass/Vol] 6.3 g/dL Normal 6.3-8.0 [facility] Comment on above: Order Comment: Speci men Type: BLOOD SPECIMENOrdering Facility: [facility] Address: [address] [place] [address] Performed By: #### 2 4323-8 ####[facility] LABORATORYCLIA [id number] [place] [address] [place] Sodium [Moles/Vol] 139 mmol/L Normal 136-144 [facility] Comment on above: Order Comment: Speci men Type: BLOOD SPECIMENOrdering Facility: [facility] Address: [address] [place] [address] Performed By: #### 2 4323-8 ####[facility] LABORATORYCLIA [id number] [place] [address] [place] Urea nitrogen [Mass/Vol] 7 mg/dL Normal 7-21 [facility] Comment on above: Order Comment: Speci men Type: BLOOD SPECIMENOrdering Facility: [facility] Address: [address] [place] [address] Performed By: #### 2 4323-8 ####[facility] LABORATORYCLIA [id number] [place] [address] [place] ANES POSTPROC EVALon 025 ANES POSTPROC EVAL Normal [facility] ANES PRE-OPon 07-06-2024 ANES PRE-OP Normal [facility] CASE MANAGEMon 07-06-[address] [facility] CBC W Auto Differential pane l (Bld)on 07-06-2024 Basophils (Bld) [#/Vol] 0.03 10*3/uL Normal <0.11 [facility] Comment on above: Order Comment: Speci men Type: BLOOD SPECIMENOrdering Facility: [facility] Address: [address] [place] [address] Performed By: #### 5 7021-8 ####[facility] LABORATORYCLIA [id number] [place] [address] [place] Basophils/100 WBC (Bld) 0.3 % Normal [facility] Comment on above: Order Comment: Speci men Type: BLOOD SPECIMENOrdering Facility: [facility] Address: [address] [place] [address] Performed By: #### 5 7021-8 ####[facility] LABORATORYCLIA [id number] [place] [address] [place] Differential cell count method Nom (Bld) Auto Normal [facility] Comment on above: Order Comment: Speci men Type: BLOOD SPECIMENOrdering Facility: [facility] Address: [address] [place] [address] Performed By: #### 5 7021-8 ####[facility] LABORATORYCLIA [id number] [place] [address] [place] Eosinophils (Bld) [#/Vol] 0.17 10*3/uL Normal <0.46 [facility] Comment on above: Order Comment: Speci men Type: BLOOD SPECIMENOrdering Facility: [facility] Address: [address] [place] [address] Performed By: #### 5 7021-8 ####[facility] LABORATORYCLIA [id number] [place] [address] [place] Eosinophils/100 WBC (Bld) 1.9 % Normal [facility] Comment on above: Order Comment: Speci men Type: BLOOD SPECIMENOrdering Facility: [facility] Address: [address] [place] [address] Performed By: #### 5 7021-8 ####[facility] LABORATORYCLIA [id number] [place] [address] [place] Erythrocyte distribution width (RBC) [Ratio] 14.5 % Normal 11.5-15.0 [facility] Comment on above: Order Comment: Speci men Type: BLOOD SPECIMENOrdering Facility: [facility] Address: [address] [place] [address] Performed By: #### 5 7021-8 ####[facility] LABORATORYCLIA [id number] [address] [place] Hematocrit (Bld) [Volume fraction] 40.4 % Normal 36.0-46.0 [facility] Comment on above: Order Comment: Speci men Type: BLOOD SPECIMENOrdering Facility: [facility] Address: [address] [place] [address] Performed By: #### 5 7021-8 ####[facility] LABORATORYCLIA [id number] [address] [place] Hemoglobin (Bld) [Mass/Vol] 13.3 g/dL Normal 11.5-15.5 [facility] Comment on above: Order Comment: Speci men Type: BLOOD SPECIMENOrdering Facility: [facility] Address: [address] [place] [address] Performed By: #### 5 7021-8 ####[facility] LABORATORYCLIA [id number] [address] [place] Immature granulocytes (Bld) [#/Vol] 0.03 10*3/uL Normal <0.10 [facility] Comment on above: Order Comment: Speci men Type: BLOOD SPECIMENOrdering Facility: [facility] Address: [address] [place] [address] Performed By: #### 5 7021-8 ####[facility] LABORATORYCLIA [id number] [address] [place] Immature granulocytes/100 WBC (Bld) 0.3 % Normal [facility] Comment on above: Order Comment: Speci men Type: BLOOD SPECIMENOrdering Facility: [facility] Address: [address] [place] [address] Performed By: #### 5 7021-8 ####[facility] LABORATORYCLIA [id number] [address] [place] Lymphocytes (Bld) [#/Vol] 1.51 10*3/uL Normal 1.00-4.00 [facility] Comment on above: Order Comment: Speci men Type: BLOOD SPECIMENOrdering Facility: [facility] Address: [address] [place] [address] Performed By: #### 5 7021-8 ####[facility] LABORATORYCLIA [id number] [address] [place] [facility] Lymphocytes/100 WBC (Bld) 16.6 % Normal [facility] Comment on above: Order Comment: Speci men Type: BLOOD SPECIMENOrdering Facility: [facility] Address: [address] [place] [address] Performed By: #### 5 7021-8 ####[facility] LABORATORYCLIA [id number] [address] MCH (RBC) [Entitic mass] 32.6 pg Normal 26.0-34.0 [facility] Comment on above: Order Comment: Speci men Type: BLOOD SPECIMENOrdering Facility: [facility] Address: [address] [place] [address] Performed By: #### 5 7021-8 ####[facility] LABORATORYCLIA [id number] [address] [place] MCHC (RBC) [Mass/Vol] 32.9 g/dL Normal 30.5-36.0 [facility] Comment on above: Order Comment: Speci men Type: BLOOD SPECIMENOrdering Facility: [facility] Address: [address] [place] [address] Performed By: #### 5 7021-8 ####[facility] LABORATORYCLIA [id number] [address] MCV (RBC) [Entitic vol] 99.0 fL Normal 80.0-100.0 [facility] Comment on above: Order Comment: Speci men Type: BLOOD SPECIMENOrdering Facility: [facility] Address: [address] [place] [address] Performed By: #### 5 7021-8 ####[facility] LABORATORYCLIA [id number] [address] Monocytes (Bld) [#/Vol] 0.52 10*3/uL Normal <0.87 [facility] Comment on above: Order Comment: Speci men Type: BLOOD SPECIMENOrdering Facility: [facility] Address: [address] [place] [address] Performed By: #### 5 7021-8 ####[facility] LABORATORYCLIA [id number] [place] [address] [place] Monocytes/100 WBC (Bld) 5.7 % Normal [facility] Comment on above: Order Comment: Speci men Type: BLOOD SPECIMENOrdering Facility: [facility] Address: [address] [place] [address] Performed By: #### 5 7021-8 ####[facility] LABORATORYCLIA [id number] [place] [address] [place] Neutrophils (Bld) [#/Vol] 6.82 10*3/uL Normal 1.45-7.50 [facility] Comment on above: Order Comment: Speci men Type: BLOOD SPECIMENOrdering Facility: [facility] Address: [address] [place] [address] Performed By: #### 5 7021-8 ####[facility] LABORATORYCLIA [id number] [place] [address] [place] Neutrophils/100 WBC (Bld) 75.2 % Normal [facility] Comment on above: Order Comment: Speci men Type: BLOOD SPECIMENOrdering Facility: [facility] Address: [address] [place] [address] Performed By: #### 5 7021-8 ####[facility] LABORATORYCLIA [id number] [place] [address] [place] Nucleated RBC (Bld) [#/Vol] 10*3/uL Normal <0.01 [facility] Comment on above: Order Comment: Speci men Type: BLOOD SPECIMENOrdering Facility: [facility] Address: [address] [place] [address] Performed By: #### 5 7021-8 ####[facility] LABORATORYCLIA [id number] [place] [address] [place] Nucleated RBC/100 WBC (Bld) [Ratio] 0.0 /[address] [facility] Comment on above: Order Comment: Speci men Type: BLOOD SPECIMENOrdering Facility: [facility] Address: [address] [facility] [address] Performed By: #### 5 7021-8 ####[facility] LABORATORYCLIA [id number] [address] [place] Platelet mean volume (Bld) [Entitic vol] 10.6 fL Normal 9.0-12.7 [facility] Comment on above: Order Comment: Speci men Type: BLOOD SPECIMENOrdering Facility: [facility] Address: [address] [place] [address] Performed By: #### 5 7021-8 ####[facility] LABORATORYCLIA [id number] [address] [place] Platelets (Bld) [#/Vol] 239 10*3/uL Normal 150-400 [facility] Comment on above: Order Comment: Speci men Type: BLOOD SPECIMENOrdering Facility: [facility] Address: [address] [place] [address] Performed By: #### 5 7021-8 ####[facility] LABORATORYCLIA [id number] [place] [address] [place] RBC (Bld) [#/Vol] 4.08 10*6/uL Normal 3.90-5.20 [facility] Comment on above: Order Comment: Speci men Type: BLOOD SPECIMENOrdering Facility: [facility] Address: [address] [place] [address] Performed By: #### 5 7021-8 ####[facility] LABORATORYCLIA [id number] [address] [place] WBC (Bld) [#/Vol] 9.08 10*3/uL Normal 3.70-11.00 [facility] Comment on above: Order Comment: Speci men Type: BLOOD SPECIMENOrdering Facility: [facility] Address: [address] [place] [address] Performed By: #### 5 7021-8 ####[facility] LABORATORYCLIA [id number] [address] [place] Comprehensive metabolic 2000 panelon 07-06-2024 Albumin [Mass/Vol] 4.1 g/dL Normal 3.9-4.9 [facility] Comment on above: Order Comment: Speci men Type: BLOOD SPECIMENOrdering Facility: [facility] Address: [address] [facility] [id number] Performed By: #### 2 4323-8 ####[facility] LABORATORYCLIA [id number] [address] [place] ALP [Catalytic activity/Vol] 134 U/L High 34-123 [facility] Comment on above: Order Comment: Speci men Type: BLOOD SPECIMENOrdering Facility: [facility] Address: [address] [place] [address] Performed By: #### 2 4323-8 ####[facility] LABORATORYCLIA [id number] [address] ALT [Catalytic activity/Vol] 32 U/L Normal 7-38 [facility] Comment on above: Order Comment: Speci men Type: BLOOD SPECIMENOrdering Facility: [facility] Address: [address] [place] [address] Performed By: #### 2 4323-8 ####[facility] LABORATORYCLIA [id number] [address] Anion gap [Moles/Vol] 11 mmol/L Normal 8-15 [facility] Comment on above: Order Comment: Speci men Type: BLOOD SPECIMENOrdering Facility: [facility] Address: [address] [place] [address] Performed By: #### 2 4323-8 ####[facility]ORATORYCLIA [id number] [address] AST [Catalytic activity/Vol] 24 U/L Normal 13-35 [facility] Comment on above: Order Comment: Speci men Type: BLOOD SPECIMENOrdering Facility: [facility] Address: [address] [place] [id number] Performed By: #### 2 4323-8 ####[facility] LABORATORYCLIA [id number] [place] [address] [place] Bilirubin [Mass/Vol] 1.3 mg/dL Normal 0.2-1.3 [facility] Comment on above: Order Comment: Speci men Type: BLOOD SPECIMENOrdering Facility: [facility] Address: [address] [place] [address] Performed By: #### 2 4323-8 ####[facility] LABORATORYCLIA [id number] [place] [address] [place] Calcium [Mass/Vol] 9.2 mg/dL Normal 8.5-10.2 [facility] Comment on above: Order Comment: Speci men Type: BLOOD SPECIMENOrdering Facility: [facility] Address: [address] [place] [address] Performed By: #### 2 4323-8 ####[facility] LABORATORYCLIA [id number] [address] [place] Chloride [Moles/Vol] 102 mmol/L Normal 98-107 [facility] [facility] Comment on above: Order Comment: Speci men Type: BLOOD SPECIMENOrdering Facility: [facility] Address: [address] [place] [address] Performed By: #### 2 4323-8 ####[facility]ATORYCLIA [id number] [place] [address] [place] CO2 [Moles/Vol] 25 mmol/L Normal 22-30 [facility] Comment on above: Order Comment: Speci men Type: BLOOD SPECIMENOrdering Facility: [facility] Address: [address] [place] [address] Performed By: #### 2 4323-8 ####[facility]ORATORYCLIA [id number] [place] [address] [place] Creatinine [Mass/Vol] 0.85 mg/dL Normal 0.58-0.96 [facility] Comment on above: Order Comment: Speci men Type: BLOOD SPECIMENOrdering Facility: [facility] Address: [address] [place] [address] Performed By: #### 2 4323-8 ####[facility]ORATORYCLIA [id number] [place] [address] [place] Creatinine and Glomerular filtration rate.predicted panel (S/P/Bld) 87 mL/min/1.73m??? Normal >=60 [facility] Comment on above: Order Comment: David horton Type: BLOOD SPECIMENOrdering Facility: [facility] Address: [address] [place] [address] Result Comment: Vidal mated Glomerular Filtration Rate [...] Performed By: #### 2 4323-8 ####[facility]ORATORYCLIA [id number] [place] [address] [place] Glucose [Mass/Vol] 91 mg/dL Normal 74-99 [facility] Comment on above: Order Comment: David horton Type: BLOOD SPECIMENOrdering Facility: [facility] Address: [address] [place] [address] Result Comment: The [place] [employer] (ADA) provides guidance for cutoff values for fasting glucose and random glucose. The ADA defines fasting as no caloric intake for at least 8 hours. Fasting plasma glucose results between 100 to 125 mg/dL indicate increased risk for diabetes (prediabetes).Fasting plasma glucose results greater than or equal to 126 mg/dL meet the criteria for diagnosis of diabetes. In the absence of unequivocal hyperglycemia, results should be confirmed by repeat testing. In a patient with classic symptoms of hyperglycemia or hyperglycemic crisis, random plasma glucose results greater than or equal to 200 mg/dL meet the criteria for diagnosis of diabetes.Reference: Standards of Medical Care in Diabetes 2016, [place] [employer]. Diabetes Care. 2016.39(Suppl 1). Performed By: #### 2 4323-8 ####[facility]ATORYCLIA [id number] [place] [id number] [place] Potassium [Moles/Vol] 3.9 mmol/L Normal 3.7-5.1 [facility] Comment on above: Order Comment: David horton Type: BLOOD SPECIMENOrdering Facility: [facility] Address: [address] [place] [address] Performed By: #### 2 4323-8 ####[facility]ORATORYCLIA [id number] [address] [place] [facility] Protein [Mass/Vol] 6.2 g/dL Low 6.3-8.0 [facility] Comment on above: Order Comment: Speci men Type: BLOOD SPECIMENOrdering Facility: [facility] Address: [address] [place] [address] Performed By: #### 2 4323-8 ####[facility]ORATORYCLIA [id number] [address] [place] Sodium [Moles/Vol] 138 mmol/L Normal 136-144 [facility] Comment on above: Order Comment: Speci men Type: BLOOD SPECIMENOrdering Facility: [facility] Address: [address] [place] [address] Performed By: #### 2 4323-8 ####[facility]ATORYCLIA [id number] [address] [place] Urea nitrogen [Mass/Vol] 9 mg/dL Normal 7-21 [facility] Comment on above: Order Comment: Speci men Type: BLOOD SPECIMENOrdering Facility: [facility] Address: [address] [place] [address] Performed By: #### 2 4323-8 ####[facility]ATORYCLIA [id number] [address] [place] Pathology biopsy report David (Tiss)on 07-06-2024 ADDENDUM 1: Normal [facility] Comment on above: Order Comment: Speci men Type: TISSUE SPECIMENOrdering Facility: [facility] Address: [address] [place] [address] Result Comment: B. I mmunohistochemical stain for H. pylori is negative.Addendum electronically signed by Jaleesa Valdivia MD on 07/16/2024 at 1121 EDT Performed By: #### 6 6121-5 ####[facility] LABCLIA [id number] [address] [place] AP DISCLAIMER [facility] Comment on above: Order Comment: Speci sol Type: TISSUE SPECIMENOrdering Facility: [facility] Address: [address] [place] [address] Result Comment: Ubaldo tang Developed Test (LDT) Disclaimer:Performance characteristics of immunohistochemical, immunofluorescent, and chromogenic in-situ hybridization tests have been determined by the performing laboratory within [facility]'s [facility] Pathology and Laboratory Medicine Department ([facility], [facility], [facility], [facility], [facility], [facility], or [facility]) in a manner consistent with CLIA requirements. One or more of these tests may not have been cleared or approved by the FDA. RT-PLM is regulated under CLIA as qualified to perform high-complexity testing. These tests are used for clinical purposes. These should not be regarded as investigational or for research. Positive and negative controls stain appropriately. Performed By: #### 6 6121-5 ####[facility] LABCLIA [id number] [place] [id number] [place] CASE REPORT [facility] Comment on above: Order Comment: Spectian horton Type: TISSUE SPECIMENOrdering Facility: [facility] Address: [address] [place] [address] Result Comment: Surg [facility] Pathology Report Case: [id number] Provider: Kaylyn Ellis MD Collected: 07/06/2024 09:[address] [facility] Endoscopy Received: 07/06/2024 11:27 AMPathologist: Jaleesa Valdivia MDSpecimens: A) - Small Bowel, Duodenum, Biopsy, R/O Sprue and Giardia B) - Stomach, Biopsy, R/O H Pylori C) - Esophagogastric Junction, Biopsy, R/O Barretts Performed By: #### 6 6121-5 ####[facility] LABCLIA [id number] [place] [id number] [facility] DIAGNOSIS COMMENT Part C was reviewed with Dr. Nunn, who concurs. [facility] Comment on above: Order Comment: Kianai men Type: TISSUE SPECIMENOrdering Facility: [facility] Address: [address] [place] [address] Performed By: #### 6 6121-5 ####[facility] LABCLIA [id number] [address] FINAL DIAGNOSIS [facility] Comment on above: Order Comment: Speci men Type: TISSUE SPECIMENOrdering Facility: [facility] Address: [address] [place] [address] Result Comment: A. D uodenum, biopsy: - Focally active duodenitis.- No evidence of celiac disease.B. Stomach, biopsy: - Gastric oxyntic and antral mucosa with reactive gastropathy.- No definitive morphologic evidence of Helicobacter pylori organisms.C. Esophagogastric junction, biopsy: - Inflamed cardiofundic-type mucosa, negative for intestinal metaplasia and dysplasia.- Squamous mucosa with reactive epithelial changes. at 1405 EDT Performed By: #### 6 6121-5 ####[facility] LABCLIA [id number] [address] [place] FINAL PERFORMING LAB [facility] Comment on above: Order Comment: Speci men Type: TISSUE SPECIMENOrdering Facility: [facility] Address: [address] [place] [address] Result Comment: Diag nostic interpretation performed at: [facility], [address] [place] [address], [place] [address] CLIA# [id number] Director: Logan Villanueva MD Performed By: #### 6 6121-5 ####[facility] LABCLIA [id number] [address] [place] GROSS DESCRIPTION [facility] Comment on above: Order Comment: Speci men Type: TISSUE SPECIMENOrdering Facility: [facility] Address: [address] [place] [address] Result Comment: A. S mall Bowel, Duodenum, BiopsyReceived in formalin are multiple pieces of maharaj-brown, soft tissue aggregating to 0.8 x 0.3 x 0.2 cm. Totally submitted in one cassette.B. Stomach, BiopsyReceived in formalin are multiple pieces of maharaj-brown, soft tissue aggregating to 1.5 x 0.5 x 0.2 cm. Totally submitted in two cassettes.C. Esophagogastric Junction, BiopsyReceived in formalin are multiple pieces of maharaj, soft tissue aggregating to 1.8 x 0.3 x 0.2 cm. Totally submitted in one cassette.Gross examination performed at [facility], [address] [place], [place] [address]AMS July 06, 2024 4:20 PM Performed By: #### 6 6121-5 ####[facility] [id number] [address] [place] Upper GI endoscopyon 025 Upper GI endoscopy Normal [facility] A1AT SerPl-[facility] 07-05-2024 Alpha 1 antitrypsin [Mass/Vol] 106 mg/dL Normal 90-200 [facility] Comment on above: Order Comment: Speci men Type: BLOOD SPECIMENOrdering Facility: [facility] Address: [address] [place] [address] Performed By: #### 1 825-9, 4-4 ####[facility] [id number] [address] [facility] 07-05-2024 AFP [Mass/Vol] 5.23 ng/mL Normal <9.00 [facility] Comment on above: Order Comment: Speci men Type: BLOOD SPECIMENOrdering Facility: [facility] Address: [address] [place] [address] Result Comment: The Alpha-Fetoprotein test was performed using the Devora Unicel DxI immunoenzymatic assay. Results obtained with different assay methods or kits cannot be used interchangeably. Performed By: #### 1 834-1 ####[facility] [id number] [address] [place] SANDRA BY IFA SCREENon 07-06-19 25 Nuclear Ab Ql (S) Negative Normal Negative [facility] Comment on above: Order Comment: Speci men Type: BLOOD SPECIMENOrdering Facility: [facility] Address: [address] [place] [address] Result Comment: Anti -nuclear antibody test is used as an aid in diagnosis of systemic autoimmune diseases. Where positive and clinically warranted, follow-up using disease-specific testing is recommended. Low positive titers are not uncommon with advanced age, certain chronic infections, and malignancies among others.Test methodology: Indirect fluorescence immunoassay (IFA) using HEp-2 cells. Performed By: #### A NAIFS ####[facility] LABCLIA [id number] [place] [address] [place] CASE MGT INIT ASSon 2024 CASE MGT INIT [facility] CBC W Auto Differential pane l (Bld)on 07-05-2024 Basophils (Bld) [#/Vol] 0.08 10*3/uL Normal <0.11 [facility] Comment on above: Order Comment: Speci men Type: BLOOD SPECIMENOrdering Facility: [facility] Address: [address] [place] [address] Performed By: #### 5 7021-8 ####[facility]ATORYCLIA [id number] [address] Basophils/100 WBC (Bld) 0.7 % Normal [facility] Comment on above: Order Comment: Speci men Type: BLOOD SPECIMENOrdering Facility: [facility] Address: [address] [place] [address] Performed By: #### 5 7021-8 ####[facility]ORYCLIA [id number] [address] [place] [facility] Differential cell count method Nom (Bld) Auto Normal [facility] Comment on above: Order Comment: Speci men Type: BLOOD SPECIMENOrdering Facility: [facility] Address: [address] [place] [address] Performed By: #### 5 7021-8 ####[facility]ORYCLIA [id number] [address] [place] Eosinophils (Bld) [#/Vol] 0.12 10*3/uL Normal <0.46 [facility] Comment on above: Order Comment: Speci men Type: BLOOD SPECIMENOrdering Facility: [facility] Address: [address] [place] [address] Performed By: #### 5 7021-8 ####[facility]ORYCLIA [id number] [address] Eosinophils/100 WBC (Bld) 1.0 % Normal [facility] Comment on above: Order Comment: Speci men Type: BLOOD SPECIMENOrdering Facility: [facility] Address: [address] [place] [address] Performed By: #### 5 7021-8 ####[facility]ORYCLIA [id number] [address] Erythrocyte distribution width (RBC) [Ratio] 15.0 % Normal 11.5-15.0 [facility] Comment on above: Order Comment: Speci men Type: BLOOD SPECIMENOrdering Facility: [facility] Address: [address] [place] [address] Performed By: #### 5 7021-8 ####[facility]ATORYCLIA [id number] [address] Hematocrit (Bld) [Volume fraction] 45.4 % Normal 36.0-46.0 [facility] Comment on above: Order Comment: Speci men Type: BLOOD SPECIMENOrdering Facility: [facility] Address: [address] [place] [address] Performed By: #### 5 7021-8 ####[facility]ATORYCLIA [id number] [address] [place] Hemoglobin (Bld) [Mass/Vol] 14.2 g/dL Normal 11.5-15.5 [facility] Comment on above: Order Comment: Speci men Type: BLOOD SPECIMENOrdering Facility: [facility] Address: [address] [place] [address] Performed By: #### 5 7021-8 ####[facility]ORATORYCLIA [id number] [address] [place] Immature granulocytes (Bld) [#/Vol] 0.04 10*3/uL Normal <0.10 [facility] Comment on above: Order Comment: Speci men Type: BLOOD SPECIMENOrdering Facility: [facility] Address: [address] [place] [address] Performed By: #### 5 7021-8 ####[facility]ATORYCLIA [id number] [address] [place] Immature granulocytes/100 WBC (Bld) 0.3 % Normal [facility] Comment on above: Order Comment: Speci men Type: BLOOD SPECIMENOrdering Facility: [facility] Address: [address] [place] [address] Performed By: #### 5 7021-8 ####[facility]ORATORYCLIA [id number] [place] [address] [place] Lymphocytes (Bld) [#/Vol] 1.79 10*3/uL Normal 1.00-4.00 [facility] Comment on above: Order Comment: Speci men Type: BLOOD SPECIMENOrdering Facility: [facility] Address: [address] [place] [address] Performed By: #### 5 7021-8 ####[facility]ATORYCLIA [id number] [address] Lymphocytes/100 WBC (Bld) 14.7 % Normal [facility] Comment on above: Order Comment: Speci men Type: BLOOD SPECIMENOrdering Facility: [facility] Address: [address] [place] [address] Performed By: #### 5 7021-8 ####[facility]ORATORYCLIA [id number] [place] [address] [place] MCH (RBC) [Entitic mass] 31.7 pg Normal 26.0-34.0 [facility] Comment on above: Order Comment: Speci men Type: BLOOD SPECIMENOrdering Facility: [facility] Address: [address] [place] [address] Performed By: #### 5 7021-8 ####[facility]ORATORYCLIA [id number] [address] [place] MCHC (RBC) [Mass/Vol] 31.3 g/dL Normal 30.5-36.0 [facility] Comment on above: Order Comment: Speci men Type: BLOOD SPECIMENOrdering Facility: [facility] Address: [address] [place] [address] Performed By: #### 5 7021-8 ####[facility]ORATORYCLIA [id number] [place] [address] [place] MCV (RBC) [Entitic vol] 101.3 fL High 80.0-100.0 [facility] Comment on above: Order Comment: Speci men Type: BLOOD SPECIMENOrdering Facility: [facility] Address: [address] [place] [address] Performed By: #### 5 7021-8 ####[facility]ORATORYCLIA [id number] [place] [address] [place] Monocytes (Bld) [#/Vol] 0.57 10*3/uL Normal <0.87 [facility] Comment on above: Order Comment: Speci men Type: BLOOD SPECIMENOrdering Facility: [facility] Address: [address] [place] [address] Performed By: #### 5 7021-8 ####[facility]ATORYCLIA [id number] [address] Monocytes/100 WBC (Bld) 4.7 % Normal [facility] Comment on above: Order Comment: Speci men Type: BLOOD SPECIMENOrdering Facility: [facility] Address: [address] [place] [address] Performed By: #### 5 7021-8 ####[facility]ORATORYCLIA [id number] [place] [address] [place] Neutrophils (Bld) [#/Vol] 9.58 10*3/uL High 1.45-7.50 [facility] Comment on above: Order Comment: Speci men Type: BLOOD SPECIMENOrdering Facility: [facility] Address: [address] [place] [address] Performed By: #### 5 7021-8 ####[facility]ATORYCLIA [id number] [place] [address] [place] Neutrophils/100 WBC (Bld) 78.6 % Normal [facility] Comment on above: Order Comment: Speci men Type: BLOOD SPECIMENOrdering Facility: [facility] Address: [address] [place] [address] Performed By: #### 5 7021-8 ####[facility]ATORYCLIA [id number] [place] [address] [place] Nucleated RBC (Bld) [#/Vol] 10*3/uL Normal <0.01 [facility] Comment on above: Order Comment: Speci men Type: BLOOD SPECIMENOrdering Facility: [facility] Address: [address] [place] [address] Performed By: #### 5 7021-8 ####[facility]ORATORYCLIA [id number] [place] [address] [place] Nucleated RBC/100 WBC (Bld) [Ratio] 0.0 /[address] [facility] Comment on above: Order Comment: Speci men Type: BLOOD SPECIMENOrdering Facility: [facility] Address: [address] [place] [address] Performed By: #### 5 7021-8 ####[facility]ATORYCLIA [id number] [place] [address] [place] Platelet mean volume (Bld) [Entitic vol] 10.5 fL Normal 9.0-12.7 [facility] Comment on above: Order Comment: Speci men Type: BLOOD SPECIMENOrdering Facility: [facility] Address: [address] [place] [address] Performed By: #### 5 7021-8 ####[facility]ATORYCLIA [id number] [place] [address] [place] Platelets (Bld) [#/Vol] 278 10*3/uL Normal 150-400 [facility] Comment on above: Order Comment: Speci men Type: BLOOD SPECIMENOrdering Facility: [facility] Address: [facility] [place] [address] Performed By: #### 5 7021-8 ####[facility]ATORYCLIA [id number] [place] [address] [place] RBC (Bld) [#/Vol] 4.48 10*6/uL Normal 3.90-5.20 [facility] Comment on above: Order Comment: Speci sol Type: BLOOD SPECIMENOrdering Facility: [facility] Address: [address] [place] [address] Performed By: #### 5 7021-8 ####[facility]ORYCLIA [id number] [place] [address] [place] WBC (Bld) [#/Vol] 12.18 10*3/uL High 3.70-11.00 [facility] Comment on above: Order Comment: David horton Type: BLOOD SPECIMENOrdering Facility: [facility] Address: [address] [place] [address] Performed By: #### 5 7021-8 ####[facility] [id number] [address] [place] CELIAC SCREENon 07-05-2024 GLIAD DEAMIDATED IGA QUAL Negative Normal Negative, Test not Indicated [facility] Comment on above: Order Comment: David horton Type: BLOOD SPECIMENOrdering Facility: [facility] Address: [address] [place] [address] Result Comment: This is used as an aid in diagnosis of celiac disease. Clinical correlation is required.The following results were obtained with an [employer] Lite Gliadin IgA ION Gliadin. Gliadin IgA values obtained with different manufacturers' assay methods may not be used interchangeably. The magnitude of the reported IgA levels cannot be correlated to an endpoint titer. Performed By: #### L [id number] ####[facility] LABCLIA [id number] [address] [place] Gliadin peptide IgA Qn (S) 1 Units Normal <20 [facility] Comment on above: Order Comment: Kianai [facility] Type: BLOOD SPECIMENOrdering Facility: [facility] Address: [address] [place] [address] Performed By: #### L [id number] ####[facility] LABCLIA [id number] [address] [place] [address] [place] INTERPRETATION No serological evide nce of celiac disease, however, if celiac disease is clinically suspected and patient is not on gluten-free diet, histological diagnosis may be considered. HLA testing may help with risk assessment. Normal [facility] Comment on above: Order Comment: Speci men Type: BLOOD SPECIMENOrdering Facility: [facility] Address: [address] [place] [address] Performed By: #### L [id number] ####[facility] [id number] [address] [place] TRANSGLUTAMINASE IGA ABS INTERPRETATION Negative Normal Negative [facility] Comment on above: Order Comment: David horton Type: BLOOD SPECIMENOrdering Facility: [facility] Address: [address] [place] [address] Result Comment: The following results were obtained with Braclet[employer] Lite R h-tTG IgA ION.???R h-tTG IgA values obtained with different manufacturers' assay methods may not be used interchangeably. The magnitude of the reported IgA levels cannot be corelated to an endpoint???concentration.This is used as an aid in diagnosis of celiac disease. Clinical correlation is required. Performed By: #### L [id number] ####[facility] [id number] [place] [id number] [place] tTG IgA Qn (S) <2 Normal <4 [facility] Comment on above: Order Comment: Kianai men Type: BLOOD SPECIMENOrdering Facility: [facility] Address: [address] [place] [address] Performed By: #### L [id number] ####[facility]CLIA [id number] [place] [id number] [place] CMV IgM Qnon 07-05-2024 CMV IGM, QUAL Negative Normal Negative [facility] Comment on above: Order Comment: Speci [facility] Type: BLOOD SPECIMENOrdering Facility: [facility] Address: [address] [place] [address] Result Comment: No s erological evidence of recent exposure to Cytomegalovirus. Performed By: #### 7 853-5, 7886-5 ####[facility]IA [id number] [place] [address] [place] CONSULTon 07-05-[address] [facility] Ceruloplasmin SerPl-mCncon 0 07-05-2024 Ceruloplasmin [Mass/Vol] 31 mg/dL Normal 16-45 [facility] Comment on above: Order Comment: Speci men Type: BLOOD SPECIMENOrdering Facility: [facility] Address: [address] [place] [address] Performed By: #### 1 825-9, 2064-4 ####[facility] [id number] [address] [place] Comprehensive metabolic 2000 panelon 07-05-2024 Albumin [Mass/Vol] 4.0 g/dL Normal 3.9-4.9 [facility] Comment on above: Order Comment: Speci men Type: BLOOD SPECIMENOrdering Facility: [facility] Address: [address] [place] [address] Performed By: #### 2 4323-8, 42724-2, 59320-0 ####[facility]ORY[facility] [id number] [address] [place] ALP [Catalytic activity/Vol] 132 U/L High 34-123 [facility] Comment on above: Order Comment: Speci men Type: BLOOD SPECIMENOrdering Facility: [facility] Address: [address] [place] [address] Performed By: #### 2 4323-8, 80547-6, 97499-3 ####[facility] LABORATORYCLIA [id number] [address] STATES OF [facility] ALT [Catalytic activity/Vol] 39 U/L High 7-38 [facility] Comment on above: Order Comment: Speci men Type: BLOOD SPECIMENOrdering Facility: [facility] Address: [address] [place] [address] Performed By: #### 2 4323-8, 17390-2, 87689-1 ####[facility] LABORATORYCLIA [id number] [place] [address] [place] Anion gap [Moles/Vol] 10 mmol/L Normal 8-15 [facility] Comment on above: Order Comment: Speci men Type: BLOOD SPECIMENOrdering Facility: [facility] Address: [address] [place] [address] Performed By: #### 2 4323-8, 38728-2, 00699-4 ####[facility] LABORATORYCLIA [id number] [place] [address] [place] AST [Catalytic activity/Vol] 30 U/L Normal 13-35 [facility] Comment on above: Order Comment: Speci men Type: BLOOD SPECIMENOrdering Facility: [facility] Address: [address] [place] [address] Performed By: #### 2 4323-8, 16442-3, ####[facility] LABORATORYCLIA [id number] [place] [address] [place] Bilirubin [Mass/Vol] 1.0 mg/dL Normal 0.2-1.3 [facility] Comment on above: Order Comment: Speci men Type: BLOOD SPECIMENOrdering Facility: [facility] Address: [address] [place] [address] Performed By: #### 2 4323-8, 50964-6, 44694-6 ####[facility] LABORATORYCLIA [id number] [place] [address] [place] Calcium [Mass/Vol] 9.1 mg/dL Normal 8.5-10.2 [facility] Comment on above: Order Comment: Speci men Type: BLOOD SPECIMENOrdering Facility: [facility] Address: [address] [place] [address] Performed By: #### 2 4323-8, 61058-6, 34870-5 ####[facility] LABORATORYCLIA [id number] [place] [address] [place] Chloride [Moles/Vol] 104 mmol/L Normal 98-107 [facility] Comment on above: Order Comment: Speci men Type: BLOOD SPECIMENOrdering Facility: [facility] Address: [address] [place] [address] Performed By: #### 2 4323-8, 05035-9, 00102-7 ####[facility] LABORATORYCLIA [id number] [place] [address] [place] CO2 [Moles/Vol] 27 mmol/L Normal 22-30 [facility] Comment on above: Order Comment: Speci men Type: BLOOD SPECIMENOrdering Facility: [facility] Address: [address] [place] [address] Performed By: #### 2 4323-8, 57270-6, 64100-4 ####[facility] LABORATORYCLIA [id number] [address] OF [facility] Creatinine [Mass/Vol] 0.96 mg/dL Normal 0.58-0.96 [facility] Comment on above: Order Comment: Speci men Type: BLOOD SPECIMENOrdering Facility: [facility] Address: [address] [place] [address] Performed By: #### 2 4323-8, 55301-3, 02260-0 ####[facility] LABORATORYCLIA [id number] [address] Creatinine and Glomerular filtration rate.predicted panel (S/P/Bld) 75 mL/min/1.73m??? Normal >=60 [facility] Comment on above: Order Comment: Speci men Type: BLOOD SPECIMENOrdering Facility: [facility] Address: [address] [place] [address] Result Comment: Vidal mated Glomerular Filtration Rate [...] actual GFR. Performed By: #### 2 4323-8, 23924-4, 00027-7 ####[facility] LABORATORYCLIA [id number] [place] [address] [place] Glucose [Mass/Vol] 89 mg/dL Normal 74-99 [facility] Comment on above: Order Comment: David horton Type: BLOOD SPECIMENOrdering Facility: [facility] Address: [address] [place] [address] Result Comment: The [place] Diabetes Association (ADA) provides guidance for cutoff values for fasting glucose and random glucose. The ADA defines fasting as no caloric intake for at least 8 hours. Fasting plasma glucose results between 100 to 125 mg/dL indicate increased risk for diabetes (prediabetes).Fasting plasma glucose results greater than or equal to 126 mg/dL meet the criteria for diagnosis of diabetes. In the absence of unequivocal hyperglycemia, results should be confirmed by repeat testing. In a patient with classic symptoms of hyperglycemia or hyperglycemic crisis, random plasma glucose results greater than or equal to 200 mg/dL meet the criteria for diagnosis of diabetes.Reference: Standards of Medical Care in Diabetes 2016, [place] [employer] Association. Diabetes Care. 2016.39(Suppl 1). Performed By: #### 2 4323-8, 97905-7, 46612-9 ####[facility] LABORATORYCLIA [id number] [place] [id number] [place] Potassium [Moles/Vol] 4.1 mmol/L Normal 3.7-5.1 [facility] Comment on above: Order Comment: David horton Type: BLOOD SPECIMENOrdering Facility: [facility] Address: [address] [place] [address] Performed By: #### 2 4323-8, 89694-8, 51043-3 ####[facility] LABORATORYCLIA [id number] [place] [id number] [place] Protein [Mass/Vol] 6.9 g/dL Normal 6.3-8.0 [facility] Comment on above: Order Comment: David horton Type: BLOOD SPECIMENOrdering Facility: [facility] Address: [address] [place] [address] Performed By: #### 2 4323-8, 15011-0, 60535-6 ####[facility] LABORATORYCLIA [id number] [place] [id number] [place] Sodium [Moles/Vol] 141 mmol/L Normal 136-144 [facility] Comment on above: Order Comment: Speci men Type: BLOOD SPECIMENOrdering Facility: [facility] Address: [address] [place] [address] Performed By: #### 2 4323-8, 92416-6, 60213-5 ####[facility] LABORATORYCLIA [id number] [place] [address] [place] Urea nitrogen [Mass/Vol] 12 mg/dL Normal 7-21 [facility] Comment on above: Order Comment: Speci men Type: BLOOD SPECIMENOrdering Facility: [facility] Address: [address] [place] [address] Performed By: #### 2 4323-8, 57695-2, 22173-8 ####[facility] LABORATORYCLIA [id number] [address] [place] EBV capsid IgM Qn (S)on 06-13 EBV VCA IGM, QUAL Negative Normal Negative [facility] Comment on above: Order Comment: Speci men Type: BLOOD SPECIMENOrdering Facility: [facility] Address: [address] [place] [address] Result Comment: No s erological evidence of recent EBV infection. Performed By: #### 7 853-5, 7886-5 ####[facility] LABCLIA [id number] [place] [address] [place] HISTORY PHYSICALon HISTORY PHYSICAL Normal [facility] HSV PCR, MISCELLANEOUS SPECI MEN TYPESon 07-05-2024 HERPES SIMPLEX VIRUS SOURCE Plasma Normal [facility] Comment on above: Order Comment: Speci men Type: BLOOD SPECIMENOrdering Facility: [facility] Address: [address] [place] [address] Performed By: #### P CRHSV ####[facility] LABORATORIESCLIA [id number] [place] [address] HSV 1 SUBTYPE BY PCR Not detected Normal [facility] Comment on above: Order Comment: Speci men Type: BLOOD SPECIMENOrdering Facility: [facility] Address: [address] [place] [address] Performed By: #### P CRHSV ####[facility] HOSPITALIA [id number] [place] [address] HSV 2 SUBTYPE BY PCR Not detected Normal [facility] Comment on above: Order Comment: Speci men Type: BLOOD SPECIMENOrdering Facility: [facility] Address: [address] [place] [address] Result Comment: INTE RPRETIVE INFORMATION: HSV-1 and HSV-2 Subtype by PCRA negative result does not rule out the presence of PCR inhibitorsin the patient specimen or test-specific nucleic acid inconcentrations below the level of detection by this test.This test was developed and its performance characteristicsdetermined by [employer]. It has not been cleared orapproved by the [place] Food and Drug Administration. This test wasperformed in a CLIA certified laboratory and is intended forclinical purposes.Performed By: [facility] [place] [id number] Director: José Burns MD, PhDCLIA Number: [id number] Performed By: #### P CRHSV ####[facility] LABORATORIESCLIA [id number] [place] [address] IgA SerPl-mCncon 07-05-2024 IgA [Mass/Vol] 97 mg/dL Normal 70-400 [facility] Comment on above: Order Comment: Speci men Type: BLOOD SPECIMENOrdering Facility: [facility] Address: [address] [place] [address] Performed By: #### 2 458-8 ####[facility] LABCLIA [id number] [place] [address] [place] Iron and Iron binding capaci ty panelon 07-05-2024 Iron [Mass/Vol] 77 ug/dL Normal 41-186 [facility] Comment on above: Order Comment: Speci men Type: BLOOD SPECIMENOrdering Facility: [facility] Address: [address] [place] [address] Performed By: #### 2 4323-8, 06364-5, 17887-7 ####[facility] LABORATORYCLIA [id number] [address] [facility] Iron binding capacity [Mass/Vol] 411 ug/dL High 232-386 [facility] Comment on above: Order Comment: Speci men Type: BLOOD SPECIMENOrdering Facility: [facility] Address: [address] [place] [address] Performed By: #### 2 4323-8, 77815-4, 39791-8 ####[facility] LABORATORYCLIA [id number] [place] [address] [place] Iron/TIBC [Molar ratio] 18.7 % Normal 15.0-57.0 M [facility] Comment on above: Order Comment: Speci men Type: BLOOD SPECIMENOrdering Facility: [facility] Address: [address] [place] [address] Performed By: #### 2 4323-8, 50151-8, 22777-2 ####[facility] LABORATORYCLIA [id number] [place] [address] [place] Lipid 1996 panelon 5 Cholesterol [Mass/Vol] 172 mg/dL Normal <200 [facility] Comment on above: Order Comment: Speci men Type: BLOOD SPECIMENOrdering Facility: [facility] Address: [address] [place] [address] Result Comment: <200 mg/dL, Desirable 200-239 mg/dL, Borderline high>239 mg/dL, High Performed By: #### 2 4323-8, 61802-7, 68592-8 ####[facility] LABORATORYCLIA [id number] [address] STATES OF [facility] Cholesterol in HDL [Mass/Vol] 36 mg/dL Low >39 [facility] Comment on above: Order Comment: Speci men Type: BLOOD SPECIMENOrdering Facility: [facility] Address: [address] [place] [address] Result Comment: 40-5 9 mg/dL, Acceptable>59 mg/dL, High: Negative risk factor for coronary heart disease<40 mg/dL, Low: Positive risk factor for coronary heart disease Performed By: #### 2 4323-8, 93484-8, 54542-8 ####[facility] LABORATORYCLIA [id number] [address] STATES OF [facility] Cholesterol in LDL [Mass/Vol] 108 mg/dL High <100 [facility] Comment on above: Order Comment: David sol Type: BLOOD SPECIMENOrdering Facility: [facility] Address: [address] [place] [address] Result Comment: <100 mg/dL, Optimal 100-129 mg/dL, Near optimal/above optimal 130-159 mg/dL, Borderline high 160-189 mg/dL, High>189 mg/dL, Very highSecondary prevention optimal LDL Cholesterol levels are recommended to be <70 mg/dLLDL cholesterol is calculated using the Stoddard-NIH equation. Performed By: #### 2 4323-8, 34420-6, 29656-9 ####[facility] LABORATORYCLIA [id number] [address] Cholesterol in LDL/Cholesterol in HDL [Mass ratio] 3.00 {ratio} High <2.54 [facility] Comment on above: Order Comment: David horton Type: BLOOD SPECIMENOrdering Facility: [facility] Address: [address] [place] [address] Result Comment: Refe felipa:1. National Cholesterol Education Program ATP III Guideline At-A-Glance Quick Desk Reference: National Heart, Lung, and Blood [place]. National Institutes of Health. 2001: NIH Publication No. 01-3305.2. An International Atherosclerosis Society position paper: global recommendations for the management of dyslipidemia: executive summary, Atherosclerosis. 2014: 232(2):410-413. Performed By: #### 2 4323-8, 75008-7, 52111-1 ####[facility] LABORATORYCLIA [id number] [place] [id number] [place] Cholesterol in VLDL [Mass/Vol] 26 mg/dL Normal <30 [facility] Comment on above: Order Comment: David sol Type: BLOOD SPECIMENOrdering Facility: [facility] Address: [address] [place] [address] Performed By: #### 2 4323-8, 82901-4, 92311-1 ####[facility] LABORATORYCLIA [id number] [address] Cholesterol non HDL [Mass/Vol] 136 mg/dL High <130 [facility] Comment on above: Order Comment: Speci men Type: BLOOD SPECIMENOrdering Facility: [facility] Address: [address] [place] [address] Result Comment: <130 mg/dL, Optimal 130-159 mg/dL, Near optimal/above optimal 160-189 mg/dL, Borderline high 190-219 mg/dL, High>219 mg/dL, Very highSecondary prevention optimal non HDL Cholesterol levels are recommended to be <100 mg/dL Performed By: #### 2 4323-8, 28383-2, 58799-1 ####[facility] LABORATORYCLIA [id number] [address] Cholesterol.total/Choles terol in HDL [Mass ratio] 4.78 {ratio} Normal <5.10 [facility] Comment on above: Order Comment: Speci men Type: BLOOD SPECIMENOrdering Facility: [facility] Address: [address] [place] [address] Performed By: #### 2 4323-8, 48814-3, 84253-2 ####[facility] LABORATORYCLIA [id number] [address] FASTING TIME Normal [facility] Comment on above: Order Comment: Speci men Type: BLOOD SPECIMENOrdering Facility: [facility] Address: [address] [place] [address] Result Comment: Unkn own Performed By: #### 2 4323-8, 23164-3, 27462-8 ####[facility] LABORATORYCLIA [id number] [place] [id number] [facility] Triglyceride [Mass/Vol] 157 mg/dL High <150 M [facility] Comment on above: Order Comment: Speci men Type: BLOOD SPECIMENOrdering Facility: [facility] Address: [address] [place] [address] Result Comment: <150 mg/dL, Normal 150-199 mg/dL, Borderline high 200-499 mg/dL, High>499 mg/dL, Very high Performed By: #### 2 4323-8, 65264-3, 93957-3 ####[facility] LABORATORYCLIA [id number] [place] [address] [place] Mitochondria Ab IF Ql (S)on 07-05-2024 Mitochondria M2 Ab IA Qn (S) 4.4 Units Normal <=20.0 [facility] Comment on above: Order Comment: Speci men Type: BLOOD SPECIMENOrdering Facility: [facility] Address: [address] [place] [address] Performed By: #### 1 4252-1, 34722-4 ####[facility] LABCLIA [id number] [place] [address] [place] Mitochondria M2 Ab Ql (S) Negative Normal Negative [facility] Comment on above: Order Comment: Speci men Type: BLOOD SPECIMENOrdering Facility: [facility] Address: [address] [place] [address] Result Comment: Anti -mitochondrial antibody test is used as an aid in diagnosis of primary biliary cholangitis. Clinical correlation is required. Performed By: #### 1 4251-1, 26515-7 ####[facility] LABCLIA [id number] [address] [place] Smooth muscle Ab Ql (S)on ACTIN SMOOTH MUSCLE IGG QUALITATIVE Negative Normal Negative [facility] Comment on above: Order Comment: Speci men Type: BLOOD SPECIMENOrdering Facility: [facility] Address: [address] [place] [address] Performed By: #### 1 4251-1, 45243-4 ####[facility] LABCLIA [id number] [address] [place] ACTIN SMOOTH MUSCLE IGG QUANTITATIVE 11 Units Normal <20 [facility] Comment on above: Order Comment: Speci men Type: BLOOD SPECIMENOrdering Facility: [facility] Address: [address] [place] [address] Performed By: #### 1 4252-1, 74115-1 ####[facility] LABCLIA [id number] [place] [id number] [place] ALLIED HEALTHon 07-04-[address] [facility] ALLIED HEALTH Normal [facility] BETA HCG, QUANTITATIVE FOR E Don 07-04-2024 HCG.beta subunit Qn 0.6 m[IU]/mL Normal <5.0 [facility] Comment on above: Order Comment: Speci men Type: BLOOD SPECIMENOrdering Facility: [facility] Address: [address] [place] [address] Result Comment: Nega tive Performed By: #### 3 040-3, HCGED, 14168-1 ####[facility] LABORATORYCLIA [id number] [place] [address] [place] Bilirub SerPl-mCncon 025 Bilirubin [Mass/Vol] 0.6 mg/dL Normal 0.2-1.3 [facility] Comment on above: Order Comment: Speci men Type: BLOOD SPECIMENOrdering Facility: [facility] Address: [address] [place] [address] Performed By: #### 3 1204-1, 82191-8, 1975-2, 5195-3 ####[facility] LABCLIA [id number] [address] [place] C. trachomatis+N. gonorrhoea e DNA BIMAL+probe Ql (Unsp spec)on 07-04-2024 C. trachomatis rRNA BIMAL+probe Ql (Unsp spec) Not detected Normal Not detected [facility] Comment on above: Order Comment: Speci men Type: SWABOrdering Facility: [facility] Address: [address] [place] [address] Performed By: #### T RVAMP, 76676-7 ####[facility] LABCLIA [id number] [address] [place] N. gonorrhoeae rRNA BIMAL+probe Ql (Unsp spec) Not detected Normal Not detected [facility] Comment on above: Order Comment: Speci men Type: SWABOrdering Facility: [facility] Address: [address] [place] [address] Performed By: #### T RVAMP, 01701-4 ####[facility] LABCLIA [id number] [place] [address] [place] CBC W Auto Differential pane l (Bld)on 07-04-2024 Basophils (Bld) [#/Vol] 0.05 10*3/uL Normal <0.11 [facility] Comment on above: Order Comment: Speci men Type: BLOOD SPECIMENOrdering Facility: [facility] Address: [address] [place] [address] Performed By: #### 5 7021-8 ####[facility] LABORATORYCLIA [id number] [place] [address] [place] Basophils/100 WBC (Bld) 0.3 % Normal [facility] Comment on above: Order Comment: Speci men Type: BLOOD SPECIMENOrdering Facility: [facility] Address: [address] [place] [address] Performed By: #### 5 7021-8 ####[facility] LABORATORYCLIA [id number] [place] [address] [place] Differential cell count method Nom (Bld) Auto Normal [facility] Comment on above: Order Comment: Speci men Type: BLOOD SPECIMENOrdering Facility: [facility] Address: [address] [place] [address] Performed By: #### 5 7021-8 ####[facility] LABORATORYCLIA [id number] [place] [address] [place] Eosinophils (Bld) [#/Vol] 0.12 10*3/uL Normal <0.46 [facility] Comment on above: Order Comment: Speci men Type: BLOOD SPECIMENOrdering Facility: [facility] Address: [address] [place] [address] Performed By: #### 5 7021-8 ####[facility] LABORATORYCLIA [id number] [place] [address] [place] Eosinophils/100 WBC (Bld) 0.8 % Normal [facility] Comment on above: Order Comment: Speci men Type: BLOOD SPECIMENOrdering Facility: [facility] Address: [address] [place] [address] Performed By: #### 5 7021-8 ####[facility] LABORATORYCLIA [id number] [place] [address] [place] Erythrocyte distribution width (RBC) [Ratio] 14.7 % Normal 11.5-15.0 [facility] Comment on above: Order Comment: Speci men Type: BLOOD SPECIMENOrdering Facility: [facility] Address: [address] [place] [address] Performed By: #### 5 7021-8 ####[facility] LABORATORYCLIA [id number] [place] [address] [place] Hematocrit (Bld) [Volume fraction] 43.5 % Normal 36.0-46.0 [facility] Comment on above: Order Comment: Speci men Type: BLOOD SPECIMENOrdering Facility: [facility] Address: [address] [place] [address] Performed By: #### 5 7021-8 ####[facility] LABORATORYCLIA [id number] [place] [address] [place] Hemoglobin (Bld) [Mass/Vol] 14.0 g/dL Normal 11.5-15.5 [facility] Comment on above: Order Comment: Speci men Type: BLOOD SPECIMENOrdering Facility: [facility] Address: [address] [place] [address] Performed By: #### 5 7021-8 ####[facility] LABORATORYCLIA [id number] [place] [address] [place] Immature granulocytes (Bld) [#/Vol] 0.08 10*3/uL Normal <0.10 [facility] Comment on above: Order Comment: Speci men Type: BLOOD SPECIMENOrdering Facility: [facility] Address: [address] [place] [address] Performed By: #### 5 7021-8 ####[facility] LABORATORYCLIA [id number] [place] [address] [place] Immature granulocytes/100 WBC (Bld) 0.5 % Normal [facility] Comment on above: Order Comment: Speci men Type: BLOOD SPECIMENOrdering Facility: [facility] Address: [address] [place] [address] Performed By: #### 5 7021-8 ####[facility]ORATORYCLIA [id number] [address] Lymphocytes (Bld) [#/Vol] 1.38 10*3/uL Normal 1.00-4.00 [facility] Comment on above: Order Comment: Speci men Type: BLOOD SPECIMENOrdering Facility: [facility] Address: [address] [place] [address] Performed By: #### 5 7021-8 ####[facility]ORATORYCLIA [id number] [address] Lymphocytes/100 WBC (Bld) 9.4 % Normal [facility] Comment on above: Order Comment: Speci men Type: BLOOD SPECIMENOrdering Facility: [facility] Address: [address] [place] [address] Performed By: #### 5 7021-8 ####[facility] LABORATORYCLIA [id number] [address] MCH (RBC) [Entitic mass] 31.7 pg Normal 26.0-34.0 [facility] Comment on above: Order Comment: Speci men Type: BLOOD SPECIMENOrdering Facility: [facility] Address: [address] [place] [address] Performed By: #### 5 7021-8 ####[facility]ORATORYCLIA [id number] [address] MCHC (RBC) [Mass/Vol] 32.2 g/dL Normal 30.5-36.0 [facility] Comment on above: Order Comment: Speci men Type: BLOOD SPECIMENOrdering Facility: [facility] Address: [address] [place] [address] Performed By: #### 5 7021-8 ####[facility]ORATORYCLIA [id number] [address] MCV (RBC) [Entitic vol] 98.6 fL Normal 80.0-100.0 [facility] Comment on above: Order Comment: Speci men Type: BLOOD SPECIMENOrdering Facility: [facility] Address: [address] [place] [address] Performed By: #### 5 7021-8 ####[facility] LABORATORYCLIA [id number] [place] [address] [place] Monocytes (Bld) [#/Vol] 0.61 10*3/uL Normal <0.87 [facility] Comment on above: Order Comment: Speci men Type: BLOOD SPECIMENOrdering Facility: [facility] Address: [address] [place] [address] Performed By: #### 5 7021-8 ####[facility] LABORATORYCLIA [id number] [place] [address] [place] [facility] [place] Monocytes/100 WBC (Bld) 4.1 % Normal [facility] Comment on above: Order Comment: Speci men Type: BLOOD SPECIMENOrdering Facility: [facility] Address: [address] [place] [address] Performed By: #### 5 7021-8 ####[facility] LABORATORYCLIA [id number] [place] [address] [place] Neutrophils (Bld) [#/Vol] 12.51 10*3/uL High 1.45-7.50 [facility] Comment on above: Order Comment: Speci men Type: BLOOD SPECIMENOrdering Facility: [facility] Address: [address] [place] [address] Performed By: #### 5 7021-8 ####[facility] LABORATORYCLIA [id number] [place] [address] [place] Neutrophils/100 WBC (Bld) 84.9 % Normal [facility] Comment on above: Order Comment: Speci men Type: BLOOD SPECIMENOrdering Facility: [facility] Address: [address] [place] [address] Performed By: #### 5 7021-8 ####[facility] LABORATORYCLIA [id number] [place] [address] [place] Nucleated RBC (Bld) [#/Vol] 10*3/uL Normal <0.01 [facility] Comment on above: Order Comment: Speci men Type: BLOOD SPECIMENOrdering Facility: [facility] Address: [address] [place] [address] Performed By: #### 5 7021-8 ####[facility] LABORATORYCLIA [id number] [place] [address] [place] Nucleated RBC/100 WBC (Bld) [Ratio] 0.0 /[address] [facility] Comment on above: Order Comment: Speci men Type: BLOOD SPECIMENOrdering Facility: [facility] Address: [address] [place] [address] Performed By: #### 5 7021-8 ####[facility] LABORATORYCLIA [id number] [place] [address] [place] Platelet mean volume (Bld) [Entitic vol] 10.4 fL Normal 9.0-12.7 [facility] Comment on above: Order Comment: Speci men Type: BLOOD SPECIMENOrdering Facility: [facility] Address: [address] [place] [address] Performed By: #### 5 7021-8 ####[facility] LABORATORYCLIA [id number] [place] [address] [place] Platelets (Bld) [#/Vol] 251 10*3/uL Normal 150-400 [facility] Comment on above: Order Comment: Speci men Type: BLOOD SPECIMENOrdering Facility: [facility] Address: [address] [place] [address] Performed By: #### 5 7021-8 ####[facility] LABORATORYCLIA [id number] [place] [address] [place] RBC (Bld) [#/Vol] 4.41 10*6/uL Normal 3.90-5.20 [facility] Comment on above: Order Comment: Speci men Type: BLOOD SPECIMENOrdering Facility: [facility] Address: [address] [place] [address] Performed By: #### 5 7021-8 ####[facility] LABORATORYCLIA [id number] [place] [address] [place] WBC (Bld) [#/Vol] 14.75 10*3/uL High 3.70-11.00 [facility] Comment on above: Order Comment: Speci men Type: BLOOD SPECIMENOrdering Facility: [facility] Address: [address] [place], [place] [address] [address] Performed By: #### 5 7021-8 ####[facility] LABORATORYCLIA [id number] [address] [place] CT ABD/PEL W IVCONon 025 CT ABD/PEL W IVCON Normal [facility] CTA CHEST (NON GATED) W IVCO N PEon 07-04-2024 CTA CHEST (NON GATED) W IVCON PE Normal [facility] Comprehensive metabolic 2000 panelon 07-04-2024 Albumin [Mass/Vol] 3.9 g/dL Normal 3.9-4.9 [facility] Comment on above: Order Comment: Speci men Type: BLOOD SPECIMENOrdering Facility: [facility] Address: [address] [place] [address] [place] [address] Performed By: #### 3 040-3, HCGED, 08343-6 ####[facility] LABORATORYCLIA [id number] [address] [facility] ALP [Catalytic activity/Vol] 122 U/L Normal 34-123 [facility] Comment on above: Order Comment: Speci men Type: BLOOD SPECIMENOrdering Facility: [facility] Address: [facility] [address] Performed By: #### 3 040-3, HCGED, 76222-5 ####[facility] LABORATORYCLIA [id number] [place] [address] [place] ALT [Catalytic activity/Vol] 40 U/L High 7-38 [facility] Comment on above: Order Comment: Speci men Type: BLOOD SPECIMENOrdering Facility: [facility] Address: [address] [place] [address] [place] [address] Performed By: #### 3 040-3, HCGED, 33592-9 ####[facility] LABORATORYCLIA [id number] [address] Anion gap [Moles/Vol] 11 mmol/L Normal 8-15 [facility] Comment on above: Order Comment: Speci men Type: BLOOD SPECIMENOrdering Facility: [facility] Address: [address] [facility] [place] [address] Performed By: #### 3 040-3, HCGED, 79053-3 ####[facility] LABORATORYCLIA [id number] [place] [address] [place] AST [Catalytic activity/Vol] 40 U/L High 13-35 [facility] Comment on above: Order Comment: Speci men Type: BLOOD SPECIMENOrdering Facility: [facility] Address: [address] [place] [address] Performed By: #### 3 040-3, HCGED, 49018-6 ####[facility] LABORATORYCLIA [id number] [place] [address] [place] Bilirubin [Mass/Vol] 0.7 mg/dL Normal 0.2-1.3 [facility] Comment on above: Order Comment: Speci men Type: BLOOD SPECIMENOrdering Facility: [facility] Address: [address] [place] [address] Performed By: #### 3 040-3, HCGED, 51640-0 ####[facility] LABORATORYCLIA [id number] [place] [address] [place] Calcium [Mass/Vol] 8.8 mg/dL Normal 8.5-10.2 [facility] Comment on above: Order Comment: Speci men Type: BLOOD SPECIMENOrdering Facility: [facility] Address: [address] [place] [address] Performed By: #### 3 040-3, HCGED, 66441-2 ####[facility] LABORATORYCLIA [id number] [place] [address] [place] Chloride [Moles/Vol] 106 mmol/L Normal 98-107 [facility] Comment on above: Order Comment: Speci men Type: BLOOD SPECIMENOrdering Facility: [facility] Address: [address] [place] [address] Performed By: #### 3 040-3, HCGED, 36602-1 ####[facility] LABORATORYCLIA [id number] [place] [address] [place] CO2 [Moles/Vol] 21 mmol/L Low 22-30 [facility] Comment on above: Order Comment: David men Type: BLOOD SPECIMENOrdering Facility: [facility] Address: [address] [place] [address] Performed By: #### 3 040-3, HCGED, 42348-0 ####[facility] LABORATORYCLIA [id number] [place] [id number] [place] Creatinine [Mass/Vol] 0.82 mg/dL Normal 0.58-0.96 [facility] Comment on above: Order Comment: Speci men Type: BLOOD SPECIMENOrdering Facility: [facility] Address: [address] [place] [address] Performed By: #### 3 040-3, HCGED, ####[facility] LABORATORYCLIA [id number] [address] Creatinine and Glomerular filtration rate.predicted panel (S/P/Bld) 91 mL/min/1.73m??? Normal >=60 [facility] Comment on above: Order Comment: Speci men Type: BLOOD SPECIMENOrdering Facility: [facility] Address: [address] [place] [address] Result Comment: Vidal mated Glomerular Filtration Rate [...] accurately reflect actual GFR. Performed By: #### 3 040-3, HCGED, 48203-0 ####[facility] LABORATORYCLIA [id number] [place] [id number] [place] Glucose [Mass/Vol] 78 mg/dL Normal 74-99 [facility] Comment on above: Order Comment: Speci men Type: BLOOD SPECIMENOrdering Facility: [facility] Address: [address] [place] [address] Result Comment: The [place] [employer] (ADA) provides guidance for cutoff values for fasting glucose and random glucose. The ADA defines fasting as no caloric intake for at least 8 hours. Fasting plasma glucose results between 100 to 125 mg/dL indicate increased risk for diabetes (prediabetes).Fasting plasma glucose results greater than or equal to 126 mg/dL meet the criteria for diagnosis of diabetes. In the absence of unequivocal hyperglycemia, results should be confirmed by repeat testing. In a patient with classic symptoms of hyperglycemia or hyperglycemic crisis, random plasma glucose results greater than or equal to 200 mg/dL meet the criteria for diagnosis of diabetes.Reference: Standards of Medical Care in Diabetes 2016, [place] [employer]. Diabetes Care. 2016.39(Suppl 1). Performed By: #### 3 040-3, HCGED, 05691-8 ####[facility] LABORATORYCLIA [id number] [place] [address] [place] Potassium [Moles/Vol] 4.4 mmol/L Normal 3.7-5.1 [facility] Comment on above: Order Comment: Speci men Type: BLOOD SPECIMENOrdering Facility: [facility] Address: [address] [place] [address] Performed By: #### 3 040-3, HCGED, ####[facility] LABORATORYCLIA [id number] [place] [address] [place] Protein [Mass/Vol] 6.8 g/dL Normal 6.3-8.0 [facility] Comment on above: Order Comment: Kianai men Type: BLOOD SPECIMENOrdering Facility: [facility] Address: [address] [place] [address] Performed By: #### 3 040-3, HCGED, 80009-0 ####[facility] LABORATORYCLIA [id number] [place] [address] [place] Sodium [Moles/Vol] 138 mmol/L Normal 136-144 [facility] Comment on above: Order Comment: Kianai men Type: BLOOD SPECIMENOrdering Facility: [facility] Address: [address] [place] [address] Performed By: #### 3 040-3, HCGED, 04725-5 ####[facility] LABORATORYCLIA [id number] [address] Urea nitrogen [Mass/Vol] 16 mg/dL Normal 10-01 [facility] Comment on above: Order Comment: Speci men Type: BLOOD SPECIMENOrdering Facility: [facility] Address: [address] [place] [address] Performed By: #### 3 040-3, HCGED, 51346-2 ####[facility]ORATORYCLIA [id number] [address] ED NOTEon 07-04-2024 ED NOTE HNO ID: [id number] Author: JOSIE RODAS RN Service: Nursing Author Type: Registered Nurse Type: ED Notes Filed: 07/04/2024 21:35 Note Text: Pt is tearful at times Normal [facility] ED NOTE Normal [facility] ED NOTE HNO ID: [id number] Author: JOSIE RODAS, RN Service: Nursing Author Type: Registered Nurse Type: ED Notes Filed: 07/04/2024 21:16 Note Text: Pt has tolerated the ultrasound with mild distress Normal [facility] ED NOTE HNO ID: [id number] Author: JOSIE RODAS RN Service: Nursing Author Type: Registered Nurse Type: ED Notes Filed: 07/04/2024 20:01 Note Text: Pelvic exam per MARCIO Cueva pt tolerated fair Sample was sent Normal [facility] ED NOTE HNO ID: [id number] Author: JOSIE RODAS RN Service: Nursing Author Type: Registered Nurse Type: ED Notes Filed: 07/04/2024 19:47 Note Text: PA is bedside Normal [facility] ED NOTE HNO ID: [id number] Author: JOSIE RODAS RN Service: Nursing Author Type: Registered Nurse Type: ED Notes Filed: 07/04/2024 19:08 Note Text: Pt is in a position of comfort Normal [facility] ED PROGRESS NOTE (PROVIDER)o n 07-04-2024 ED PROGRESS NOTE (PROVIDER) Normal [facility] ED PROV NOTEon 07-04-2024 ED PR[address] NOTE Normal [facility] HAV IgM Ser Qlon 07-04-2024 HAV IgM Ql (S) Negative Normal Negative [facility] Comment on above: Order Comment: Speci men Type: BLOOD SPECIMENOrdering Facility: [facility] Address: [address] [place] [address] Result Comment: No e vidence of recent infection with Hepatitis A virus. Performed By: #### 3 1204-1, , 1975-04, 5194-05 ####[facility] LABCLIA [id number] [address] [address] [place] HBV core IgM Ser Qlon 2024 HBV core IgM Ql (S) Negative Normal Negative [facility] Comment on above: Order Comment: Speci men Type: BLOOD SPECIMENOrdering Facility: [facility] Address: [address] [place] [address] Result Comment: No e vidence of recent infection with Hepatitis B virus. Should recent infection be suspected, repeat testing may be considered 3-4 weeks after this draw. Performed By: #### 3 1204-1, , 1975-04, 5194-05 ####[facility] LABCLIA [id number] [place] [address] [place] HBV surface Ag Ser Qlon 06-13 HBV surface Ag Ql (S) Negative Normal Negative [facility] Comment on above: Order Comment: David horton Type: BLOOD SPECIMENOrdering Facility: [facility] Address: [address] [place] [address] Performed By: #### 3 1204-1, , 1975-04, 5194-05 ####[facility] LABCLIA [id number] [place] [address] [place] HCV RNA BIMAL+probe Qnon 07-04 HCV RNA BIMAL+probe Ql Not detected Normal Not detected [facility] Comment on above: Order Comment: David horton Type: BLOOD SPECIMENOrdering Facility: [facility] Address: [address] [place] [address] Performed By: #### 1 1011-4 ####[facility] LABCLIA [id number] [place] [id number] [place] Lipase SerPl-cCncon 07-05-19 25 Lipase [Catalytic activity/Vol] 26 U/L Normal 16-61 [facility] Comment on above: Order Comment: Speci men Type: BLOOD SPECIMENOrdering Facility: [facility] Address: [address] [place] [address] Performed By: #### 3 040-3, HCGED, 47501-8 ####[facility] LABORATORYCLIA [id number] [place] [address] [place] Pacemaker Checkon 07-04-2024 Pacemaker Check Normal [facility] TRICHOMONAS VAGINALIS NAATon 07-04-2024 T. vaginalis DNA BIMAL+probe Ql (Unsp spec) Not detected Normal Not detected [facility] Comment on above: Order Comment: Speci men Type: SWABOrdering Facility: [facility] Address: [address] [place] [address] Performed By: #### T RVAMP, 31828-5 ####[facility] LABCLIA [id number] [place] [address] [place] US FEMALE PELV TRANSABD COMP LETEon 07-04-2024 FEMALE PELV TRANSABD COMPLETE Normal [facility] FEMALE PELVIS TRANSVAGon 07-04-2024 FEMALE PELVIS TRANSVAG Normal [facility] Urinalysis complete panel (U )on 07-04-2024 Bilirubin Ql (U) Negative Normal Negative [facility] Comment on above: Order Comment: Speci men Type: URINE SPECIMENOrdering Facility: [facility] Address: [address] [place] [address] Performed By: #### 2 4356-8 ####[facility] LABORATORYCLIA [id number] [place] [address] [place] Clarity (Unsp spec) Clear Normal Clear [facility] Comment on above: Order Comment: Speci men Type: URINE SPECIMENOrdering Facility: [facility] Address: [address] [place] [address] Performed By: #### 2 4356-8 ####[facility] LABORATORYCLIA [id number] [place] [address] [place] Color (U) Yellow Normal Yellow [facility] Comment on above: Order Comment: Speci men Type: URINE SPECIMENOrdering Facility: [facility] Address: [address] [place] [address] Performed By: #### 2 4356-8 ####[facility] LABORATORYCLIA [id number] [place] [address] [place] Epithelial cells LM.HPF (Urine sed) [#/Area] Few Normal [facility] Comment on above: Order Comment: Speci men Type: URINE SPECIMENOrdering Facility: [facility] Address: [address] [place] [address] Performed By: #### 2 4356-8 ####[facility] LABORATORYCLIA [id number] [place] [address] [place] Glucose Test strip (U) [Mass/Vol] Negative Normal Negative [facility] Comment on above: Order Comment: Speci men Type: URINE SPECIMENOrdering Facility: [facility] Address: [address] [place] [address] Performed By: #### 2 4356-8 ####[facility] LABORATORYCLIA [id number] [place] [address] [place] Hemoglobin Ql (U) 1+ Abnormal Negative [facility] Comment on above: Order Comment: Speci men Type: URINE SPECIMENOrdering Facility: [facility] Address: [address] [place] [address] Performed By: #### 2 4356-8 ####[facility] LABORATORYCLIA [id number] [place] [id number] [place] Ketones Ql (U) Negative Normal Negative [facility] Comment on above: Order Comment: Speci men Type: URINE SPECIMENOrdering Facility: [facility] Address: [address] [place] [address] Performed By: #### 2 4356-8 ####[facility] LABORATORYCLIA [id number] [place] [address] [place] Leukocyte esterase Test strip Ql (U) Negative Normal Negative [facility] Comment on above: Order Comment: Speci men Type: URINE SPECIMENOrdering Facility: [facility] Address: [address] [place] [address] Performed By: #### 2 4356-8 ####[facility] LABORATORYCLIA [id number] [place] [address] [place] Nitrite Ql (U) Negative Normal Negative [facility] Comment on above: Order Comment: Speci men Type: URINE SPECIMENOrdering Facility: [facility] Address: [address] [place] [address] Performed By: #### 2 4356-8 ####[facility] LABORATORYCLIA [id number] [address] [place] pH (U) 6.0 [pH] Normal 5.0-8.0 [facility] Comment on above: Order Comment: Speci men Type: URINE SPECIMENOrdering Facility: [facility] Address: [address] [place] [address] Performed By: #### 2 4356-8 ####[facility] LABORATORYCLIA [id number] [address] [place] Protein (U) [Mass/Vol] Negative Normal Negative [facility] Comment on above: Order Comment: Speci men Type: URINE SPECIMENOrdering Facility: [facility] Address: [address] [place] [address] Performed By: #### 2 4356-8 ####[facility] LABORATORYCLIA [id number] [address] [place] RBC LM.HPF (Urine sed) [#/Area] 0-3 /HPF Normal 0-3 /HPF [facility] Comment on above: Order Comment: Speci men Type: URINE SPECIMENOrdering Facility: [facility] Address: [address] [place] [address] Performed By: #### 2 4356-8 ####[facility] LABORATORYCLIA [id number] [address] [place] Specific gravity (U) [Rel density] 1.010 Normal 1.005-1.[address] [facility] Comment on above: Order Comment: Speci men Type: URINE SPECIMENOrdering Facility: [facility] Address: [address] [place] [address] Performed By: #### 2 4356-8 ####[facility]ORATORYCLIA [id number] [address] Urobilinogen Ql (U) 0.2 EU/dL Normal 0.2-1.0 EU/dL [facility] Comment on above: Order Comment: Speci men Type: URINE SPECIMENOrdering Facility: [facility] Address: [address] [place] [address] Performed By: #### 2 4356-8 ####[facility]ORATORYCLIA [id number] [address] WBC LM.HPF (Urine sed) [#/Area] 0-5 /HPF Normal 0-5 /HPF [facility] Comment on above: Order Comment: Speci men Type: URINE SPECIMENOrdering Facility: [facility] Address: [address] [place] [address] Performed By: #### 2 4356-8 ####[facility]ORATORYCLIA [id number] [address] Abdomen/Pelvis W IV Cont ONL Yon 07-03-2024 Abdomen/Pelvis W IV Cont ONLY Normal [facility] Absolute lymphocyte countOrd ered By: Nabor Frey on 07-03-2024 Lymphocytes Auto (Unsp spec) [#/Vol] 0.93 10*3/uL 0.83-4.51 [facility] Absolute neutrophil countOrd ered By: Nabor Frey on 07-03-2024 Neutrophils (Bld) [#/Vol] 20.3 10*3/uL High 2.0-7.7 [facility] Anion gap in Serum or Plasma Ordered By: Nabor Frey on 07-03-2024 Anion gap [Moles/Vol] 10 mmol/L 5-15 [facility] Automated lymphocyte count a s percentage of total leukocytesOrdered By: Nabor Frey on 07-03-2024 Lymphocytes/100 WBC Auto (Unsp spec) 4.2 % Low 19-41 [facility] BUN/creatinine ratioOrdered By: Nabor Frey on 07-03-2024 Urea nitrogen/Creatinine [Mass ratio] 17.1 mg/mg 10-20 [facility] Basic Metabolic Profile (BMP )on 07-03-2024 BUN/CRE 17.1 RATIO Normal - [facility] Comment on above: Performed By: #### L 500.2500, L501.2450, L700.6800, L500.3400, L100.0100 ####[facility] [address] [place], [address] Calcium [Mass/Vol] 9.3 mg/dL Normal 7.6-11.0 [facility] Comment on above: Performed By: #### L 500.2500, L501.2450, L700.6800, L500.3400, L100.0100 ####[facility] [address] [place], [address] Chloride [Moles/Vol] 106 mmol/L Normal 98-108 [facility] Comment on above: Performed By: #### L 500.2500, L501.2450, L700.6800, L500.3400, L100.0100 ####[facility] [address] [place], [address] CO2 [Moles/Vol] 21.4 mmol/L Normal 21.0-32.0 [facility] Comment on above: Performed By: #### L 500.2500, L501.2450, L700.6800, L500.3400, L100.0100 ####[facility] [address] [place], [address] Creatinine [Mass/Vol] 0.81 mg/dL Normal 0.70-1.20 [facility] Comment on above: Performed By: #### L 500.2500, L501.2450, L700.6800, L500.3400, L100.0100 ####[facility] [address] [place], [address] ECRCL 76.53 ml/min Normal 50-250 [facility] Comment on above: Performed By: #### L 500.2500, L501.2450, L700.6800, L500.3400, L100.0100 ####[facility] [address] [place], [address] GAP 10 Normal 5-15 [facility] Comment on above: Performed By: #### L 500.2500, L501.2450, L700.6800, L500.3400, L100.0100 ####[facility] [address] [place], [address] GFR/1.73 sq M.predicted among non-blacks MDRD (S/P/Bld) [Vol rate/Area] 91 mL/min/{1.73_m2} Normal >60 [facility] Comment on above: Result Comment: mL/m in/1.73m2 CKD-EPI Creatinine Equation (2020) Performed By: #### L 500.2500, L501.2450, L700.6800, L500.3400, L100.0100 ####[facility] [address] [place], [address] Glucose [Mass/Vol] 104 mg/dL High 70-99 [facility] Comment on above: Performed By: #### L 500.2500, L501.2450, L700.6800, L500.3400, L100.0100 ####[facility] [address] [place], [address] Potassium [Moles/Vol] 4.4 mmol/L Normal 3.3-5.1 [facility] Comment on above: Performed By: #### L 500.2500, L501.2450, L700.6800, L500.3400, L100.0100 ####[facility] [address] [place], [address] Sodium [Moles/Vol] 138 mmol/L Normal 133-145 [facility] Comment on above: Performed By: #### L 500.2500, L501.2450, L700.6800, L500.3400, L100.0100 ####[facility] [address] [place], [place], [id number] Urea nitrogen [Mass/Vol] 14 mg/dL Normal 4-19 [facility] Comment on above: Performed By: #### L 500.2500, L501.2450, L700.6800, L500.3400, L100.0100 ####[facility] [address] [place], [address] Basophil percentageOrdered B y: Nabor Frey on 07-03-2024 Basophils/100 WBC (Bld) 0.2 % 0-1 [facility] Bilirubin Test strip Ql (U)O rdered By: Nabor Frey on 07-03-2024 Bilirubin Ql (U) Negative Negative [facility] Bilirubin directOrdered By: Nabor Frey on 07-03-2024 Bilirubin.direct [Mass/Vol] 0.27 mg/dL 0.00-0.30 [facility] Bilirubin, totalOrdered By: Nabor Frey on 07-03-2024 Bilirubin [Mass/Vol] 0.64 mg/dL 0.00-1.30 [facility] CBC W/Diff, Automatedon 06-13 Absolute Lymph 0.93 X10 3/uL Normal 0.83-4.51 [facility] Comment on above: Performed By: #### L 500.2500, L501.2450, L700.6800, L500.3400, L100.0100 ####[facility] [address] [place], [address] Absolute Neut 20.3 X10 3/uL High 2.0-7.7 [facility] Comment on above: Performed By: #### L 500.2500, L501.2450, L700.6800, L500.3400, L100.0100 ####[facility] [address] [place], [address] Basophils/100 WBC (Bld) 0.2 % Normal 0-1 [facility] Comment on above: Performed By: #### L 500.2500, L501.2450, L700.6800, L500.3400, L100.0100 ####[facility] [address] [place], [address] Eosinophils/100 WBC (Bld) 0.1 % Normal 0-5 [facility] Comment on above: Performed By: #### L 500.2500, L501.2450, L700.6800, L500.3400, L100.0100 ####[facility] [address] [place], [address] Erythrocyte distribution width (RBC) [Ratio] 15.3 % High 11.6-14.6 [facility] Comment on above: Performed By: #### L 500.2500, L501.2450, L700.6800, L500.3400, L100.0100 ####[facility] [address] [place], [address] Hematocrit (Bld) [Volume fraction] 41.5 % Normal 37-47 [facility] Comment on above: Performed By: #### L 500.2500, L501.2450, L700.6800, L500.3400, L100.0100 ####[facility] [address] [place], [address] Hemoglobin (Bld) [Mass/Vol] 13.8 g/dL Normal 12.0-15.0 [facility] Comment on above: Performed By: #### L 500.2500, L501.2450, L700.6800, L500.3400, L100.0100 ####[facility] [address] [place], [address] IG% 0.900 Normal 0.0-0.9 [facility] Comment on above: Result Comment: IG% - Immature Granulocytes (promyelocytes, myelocytes andmetamyelocytes) > 1% indicates that a LEFT SHIFT is Present. Performed By: #### L 500.2500, L501.2450, L700.6800, L500.3400, L100.0100 ####[facility] [address] [place], [address] Lymphocytes/100 WBC (Bld) 4.2 % Low 19-41 [facility] Comment on above: Performed By: #### L 500.2500, L501.2450, L700.6800, L500.3400, L100.0100 ####[facility] [address] [place], [address] MCH (RBC) [Entitic mass] 32.6 pg High 27.0-32.0 [facility] Comment on above: Performed By: #### L 500.2500, L501.2450, L700.6800, L500.3400, L100.0100 ####[facility] [address] [place], [address] MCHC (RBC) [Mass/Vol] 33.3 g/dL Normal 32-36 [facility] Comment on above: Performed By: #### L 500.2500, L501.2450, L700.6800, L500.3400, L100.0100 ####[facility] [address] [place], [address] MCV (RBC) [Entitic vol] 98.1 fL Normal 81-99 [facility] Comment on above: Performed By: #### L 500.2500, L501.2450, L700.6800, L500.3400, L100.0100 ####[facility] [address] [place], [address] Monocytes/100 WBC (Bld) 2.6 % Normal 0-10 [facility] Comment on above: Performed By: #### L 500.2500, L501.2450, L700.6800, L500.3400, L100.0100 ####[facility] [address] [place], [address] Neutrophils/100 WBC (Bld) 92.0 % High 47-70 [facility] Comment on above: Performed By: #### L 500.2500, L501.2450, L700.6800, L500.3400, L100.0100 ####[facility] [address] [place], [address] Nucleated RBC (Bld) [#/Vol] 0 10*3/uL Normal 0-5 [facility] Comment on above: Performed By: #### L 500.2500, L501.2450, L700.6800, L500.3400, L100.0100 ####[facility] [address] [place], [address] Platelet mean volume (Bld) [Entitic vol] 11.2 fL Normal 6.2-12.0 [facility] Comment on above: Performed By: #### L 500.2500, L501.2450, L700.6800, L500.3400, L100.0100 ####[facility] [address] [place], [address] Platelets (Bld) [#/Vol] 237 10*3/uL Normal 150-450 [facility] Comment on above: Performed By: #### L 500.2500, L501.2450, L700.6800, L500.3400, L100.0100 ####[facility] [address] [place], [address] RBC (Bld) [#/Vol] 4.23 10*6/uL Normal 4.2-5.4 [facility] Comment on above: Performed By: #### L 500.2500, L501.2450, L700.6800, L500.3400, L100.0100 ####[facility] [address] [place], [address] RDW SD 54.4 fl High 35.1-43.9 [facility] Comment on above: Performed By: #### L 500.2500, L501.2450, L700.6800, L500.3400, L100.0100 ####[facility] [address] [place], [address] WBC (Bld) [#/Vol] 22.0 10*3/uL High 4.4-11.0 [facility] Comment on above: Performed By: #### L 500.2500, L501.2450, L700.6800, L500.3400, L100.0100 ####[facility] [address] [place], [address] Carbon dioxide, total [Moles /volume] in Central venous bloodOrdered By: Nabor Frey on 07-03-2024 CO2 [Moles/Vol] 21.4 mmol/L 21.0-32.0 [facility] Chloride assayOrdered By: Carlton Frey on 07-03-2024 Chloride [Moles/Vol] 106 mmol/L 98-108 [facility] Summary on 07-03-2024 Emergency Department Summary Normal [facility] Eosinophil percentageOrdered By: Nabor Frey on 07-03-2024 Eosinophils/100 WBC (Bld) 0.1 % 0-5 [facility] Erythrocyte distribution wid th ratioOrdered By: Nabor Frey on 07-03-2024 Erythrocyte distribution width (RBC) [Ratio] 15.3 % High 11.6-14.6 [facility] Erythrocyte distribution wid th standard deviationOrdered By: Nabor Frey on 07-03-2024 Erythrocyte distribution width (RBC) [Ratio] 54.4 fl High 35.1-43.9 [facility] Gastroenterology Visit Repor ton 07-03-2024 Gastroenterology Visit Report Normal [facility] Glomerular filtration rate ( GFR) estimation/1.73 sq m using serum, plasma, or whole bOrdered By: Nabor Frey on 07-03-2024 GFR/1.73 sq M.predicted among non-blacks MDRD (S/P/Bld) [Vol rate/Area] 91 mL/min/{1.73_m2} >60 [facility] Comment on above: mL/min/1.73m2 CKD-EP I Creatinine Equation (2020) Hematocrit Auto (Bld) [Volum e fraction]Ordered By: Nabor Frey on 07-03-2024 Hematocrit (Bld) [Volume fraction] 41.5 % 37-47 [facility] Hemoglobin measurementOrdere d By: Nabor Frey on 07-03-2024 Hemoglobin (Bld) [Mass/Vol] 13.8 g/dL 12.0-15.0 [facility] Immature granulocytes/100 WB C Auto (Bld)Ordered By: Nabor Frey on 07-03-2024 Immature granulocytes/100 WBC (Bld) 0.900 % 0.0-0.9 [facility] Comment on above: IG% - Immature Granu locytes (promyelocytes, myelocytes and metamyelocytes) > 1% indicates that a LEFT SHIFT is Present. Ketones Test strip Ql (U)Ord ered By: Nabor Frey on 07-03-2024 Ketones Ql (U) Negative Negative [facility] Laboratory - Chemistry and C hemistry - challengeOrdered By: Nabor Frey on 07-03-2024 AST [Catalytic activity/Vol] 33 U/L High <32 [facility] Lipaseon 07-03-2024 Lipase [Catalytic activity/Vol] 25 U/L Normal 13-75 [facility] Comment on above: Result Comment: Liam rader note:LIPASE revised reference range effective 22.New Lipase methodology. Expected to produce lower valuesthan the previous assay method.NEW Reference Range: 13 - 75 U/L Performed By: #### L 500.2500, L501.2450, L700.6800, L500.3400, L100.0100 ####[facility] [address] [place], [address] Lipase measurementOrdered By : Nabor Frey on 07-03-2024 Lipase [Catalytic activity/Vol] 25 U/L 13-75 [facility] Comment on above: Please note:LIPASE r evised reference range effective 22. New Lipase methodology. Expected to produce lower values than the previous assay method. NEW Reference Range: 13 - 75 U/L Liver Profileon 07-03-2024 Albumin [Mass/Vol] 4.2 g/dL Normal 3.5-5.0 [facility] Comment on above: Performed By: #### L 500.2500, L501.2450, L700.6800, L500.3400, L100.0100 ####[facility] [address] [place], [address] ALK PHOS 111 U/L High 35-104 [facility] Comment on above: Performed By: #### L 500.2500, L501.2450, L700.6800, L500.3400, L100.0100 ####[facility] [address] [place], [address] ALT [Catalytic activity/Vol] 33 U/L Normal <=34 [facility] Comment on above: Performed By: #### L 500.2500, L501.2450, L700.6800, L500.3400, L100.0100 ####[facility] [address] [place], [address] AST [Catalytic activity/Vol] 33 U/L High <=31 [facility] Comment on above: Performed By: #### L 500.2500, L501.2450, L700.6800, L500.3400, L100.0100 ####[facility] [address] [place], [address] Bilirubin [Mass/Vol] 0.64 mg/dL Normal 0.00-1.30 [facility] Comment on above: Performed By: #### L 500.2500, L501.2450, L700.6800, L500.3400, L100.0100 ####[facility] [address] [place], [address] Bilirubin.direct [Mass/Vol] 0.27 mg/dL Normal 0.00-0.30 [facility] Comment on above: Performed By: #### L 500.2500, L501.2450, L700.6800, L500.3400, L100.0100 ####[facility] [address] [place], [address] Globulin (S) [Mass/Vol] 2.3 g/dL Normal 2.2-4.2 [facility] Comment on above: Performed By: #### L 500.2500, L501.2450, L700.6800, L500.3400, L100.0100 ####[facility] [address] [place], [address] T PROT 6.5 g/dL Normal 5.9-8.4 [facility] Comment on above: Performed By: #### L 500.2500, L501.2450, L700.6800, L500.3400, L100.0100 ####[facility] [address] [place], [address] MCV (mean corpuscular volume ) determinationOrdered By: Nabor Frey on 07-03-2024 MCV (RBC) [Entitic vol] 98.1 fL 81-99 [facility] Mean corpuscular hemoglobin (MCH) determinationOrdered By: Nabor Frey on 07-03-2024 MCH (RBC) [Entitic mass] 32.6 pg High 27.0-32.0 [facility] Mean corpuscular hemoglobin concentration (MCHC) determinationOrdered By: Nabor Frey on 07-03-2024 MCHC (RBC) [Mass/Vol] 33.3 g/dL 32-36 [facility] Mean platelet volume determi nationOrdered By: Nabor Frey on 07-03-2024 Platelet mean volume (Bld) [Entitic vol] 11.2 fL 6.2-12.0 [facility] Microscopic analysis of urin e for red blood cells (RBC)Ordered By: Nabor Frey on 07-03-2024 Microscopic analysis of urine for red blood cells (RBC) 0-5 SEEN /hpf 0-5 [facility] Monocyte percentageOrdered B y: Nabor Frey on 07-03-2024 Monocytes/100 WBC (Bld) 2.6 % 0-10 [facility] Mucus LM Ql (Urine sed)Order ed By: Nabor Frey on 07-03-2024 Mucus Ql (Urine sed) 0 SEEN /hpf [facility] Neutrophil percentageOrdered By: Nabor Frey on 07-03-2024 Neutrophils/100 WBC (Bld) 92.0 % High 47-70 [facility] Nitrite Test strip Ql (U)Ord ered By: Nabor Frey on 07-03-2024 Nitrite Ql (U) Negative Negative [facility] No Panel InformationOrdered By: Nabor Frey on 07-03-2024 33 U/L High <32 [facility] Nucleated red blood cell per centageOrdered By: Nabor Frey on 07-03-2024 Nucleated RBC/100 WBC (Bld) [Ratio] 0 % 0-5 [facility] Platelet countOrdered By: Carlton Frey on 07-03-2024 Platelets (Bld) [#/Vol] 237 10*3/uL 150-450 [facility] Potassium measurement (mass/ volume)Ordered By: Nabor Frey on 07-03-2024 Potassium (Unsp spec) [Mass/Vol] 4.4 mmol/L 3.3-5.1 [facility] ,Serum,hCG Quali.on 07-03-2024 HCG, SERUM QUAL Negative Normal [facility] Comment on above: Performed By: #### L 500.2500, L501.2450, L700.6800, L500.3400, L100.0100 ####[facility] [address] [place], [address] Protein Test strip Ql (U)Ord ered By: Nabor Frey on 07-03-2024 Protein Ql (U) 30 mg/dl High Negative [facility] RBC Auto (Bld) [#/Vol]Ordere d By: Nabor Frey on 07-03-2024 RBC (Bld) [#/Vol] 4.23 10*6/uL 4.2-5.4 [facility] Serum beta-hCG test, qualita tiveOrdered By: Nabor Frey on 07-03-2024 Beta HCG ( test) Ql Negative [facility] Serum creatinine measurement (mass/volume)Ordered By: Nabor Frey on 07-03-2024 Creatinine [Mass/Vol] 0.81 mg/dL 0.70-1.20 [facility] Serum globulin measurementOr dered By: Nabor Frey on 07-03-2024 Globulin (S) [Mass/Vol] 2.3 g/dL 2.2-4.2 [facility] Serum glucose measurement (m ass/volume)Ordered By: Nabor Frey on 07-03-2024 Glucose [Mass/Vol] 104 mg/dL High 70-99 [facility] Serum or plasma alanine hair otransferase (ALT) measurementOrdered By: Nabor Frey on 07-03-2024 ALT [Catalytic activity/Vol] 33 U/L <35 [facility] Serum or plasma albumin leslie urement (mass/volume)Ordered By: Nabor Frey on 07-03-2024 Albumin [Mass/Vol] 4.2 g/dL 3.5-5.0 [facility] Serum or plasma alkaline delfin sphatase measurementOrdered By: Nabor Frey on 07-03-2024 ALP [Catalytic activity/Vol] 111 U/L High 35-104 [facility] Serum or plasma calcium leslie urement (mass/volume)Ordered By: Nabor Frey on 07-03-2024 Calcium [Mass/Vol] 9.3 mg/dL 7.6-11.0 [facility] Serum or plasma urea nitroge n measurement (mass/volume)Ordered By: Nabor Frey on 07-03-2024 Urea nitrogen [Mass/Vol] 14 mg/dL 4-19 [facility] Sodium levelOrdered By: Charli Frey on 07-03-2024 Sodium [Moles/Vol] 138 mmol/L 133-145 [facility] Squamous epithelial cells de tection in urine sediment by light microscopyOrdered By: Nabor Frey on 07-03-2024 Epithelial cells.squamous LM Ql (Urine sed) 10-25 SEEN /hpf 5-10 [facility] Total proteinOrdered By: Juan Daniel noriegageoffrey Tk on 07-03-2024 Protein [Mass/Vol] 6.5 g/dL 5.9-8.4 [facility] Urinalysis, Completeon 07-03 BILIRUBIN URINE Negative Normal Negative [facility] Comment on above: Order Comment: CLEAN CATCH Performed By: #### L 400.0001 ####[facility] [address] [place], [address] Clarity (U) Sl. Cloudy Normal Clear [facility] Comment on above: Order Comment: CLEAN CATCH Performed By: #### L 400.0001 ####[facility] [address] [place], [address] Color (U) Yellow Normal Yellow [facility] Comment on above: Order Comment: CLEAN CATCH Performed By: #### L 400.0001 ####[facility] [address] [place], [address] GLUCOSE, UR Normal Normal Normal [facility] Comment on above: Order Comment: CLEAN CATCH Performed By: #### L 400.0001 ####[facility] [address] [place], [address] KETONE UR Negative Normal Negative [facility] Comment on above: Order Comment: CLEAN CATCH Performed By: #### L 400.0001 ####[facility] [address] [place], [address] LEUK ESTERASE Negative Normal Negative [facility] Comment on above: Order Comment: CLEAN CATCH Performed By: #### L 400.0001 ####[facility] [address] [place], [address] Nitrite Ql (U) Negative Normal Negative [facility] Comment on above: Order Comment: CLEAN CATCH Performed By: #### L 400.0001 ####[facility] [address] [place], [address] OCCULT BLOOD-UR 25 /ul Abnormal Negative [facility] Comment on above: Order Comment: CLEAN CATCH Performed By: #### L 400.0001 ####[facility] [address] [place], [address] pH UR 6.5 Normal 5.0 - 8.0 [facility] Comment on above: Order Comment: CLEAN CATCH Performed By: #### L 400.0001 ####[facility] [address] [place], [address] PROT DIPSTX 30 mg/dl Abnormal Negative [facility] Comment on above: Order Comment: CLEAN CATCH Performed By: #### L 400.0001 ####[facility] [address] [place], [address] SP.GR. DIPSTX 1.010 Normal 1.002-1.03 0 [facility] Comment on above: Order Comment: CLEAN CATCH Performed By: #### L 400.0001 ####[facility] [address] [place], [address] UROBILI Normal Normal Normal [facility] Comment on above: Order Comment: CLEAN CATCH Performed By: #### L 400.0001 ####[facility] [address] [place], [address] Urine clarityOrdered By: Juan Daniel Frey on 07-03-2024 Clarity (U) Sl. Cloudy Clear [facility] Urine color determinationOrd ered By: Nabor Frey on 07-03-2024 Color (U) Yellow Yellow [facility] Urine glucose detectionOrder ed By: Nabor Frey on 07-03-2024 Glucose Ql (U) Normal mg/dl Normal [facility] Urine leukocyte esterase det ection by dipstickOrdered By: Nabor Frey on 07-03-2024 Leukocyte esterase Test strip Ql (U) Negative Negative [facility] Urine pHOrdered By: Nabor segal on 07-03-2024 pH (U) 6.5 [pH] 5.0 - 8.0 [facility] Urine sediment bacteria coun t by microscopy (number/high power field)Ordered By: Nabor Frey on 07-03-2024 Bacteria LM.HPF (Urine sed) [#/Area] 1 /[HPF] None Seen [facility] Urine specific gravity measu rementOrdered By: Nabor Frey on 07-03-2024 Specific gravity (U) [Rel density] 1.010 1.002-1.03 0 [facility] Urine urobilinogen measureme ntOrdered By: Nabor Frey on 07-03-2024 Urobilinogen Ql (U) Normal mg/dl Normal [facility] White blood cell (WBC) count Ordered By: Nabor Frey on 07-03-2024 WBC (Bld) [#/Vol] 22.0 10*3/uL High 4.4-11.0 [facility] White blood cell countOrdere d By: Nabor Frey on 07-03-2024 White blood cell count 0-5 SEEN /hpf 0-5 [facility] 36on 07-01-2024 36 Your fax has been successfully sent to Dr. Wilkinson at [phone]. From: Ella Cohen RN 07/01/2024 3:37:02 PM Origin Record Created by SHANTE 07/01/2024 3:37:12 PM Conversion [[id number].PRT] Type: application/postscript G3 to TIFF #1: Success [image/g3] (77ms) GhostScript TIFF #1: Success [image/tiff] (209ms) ([id number]) 07/01/2024 3:37:18 PM Transmission Record Sent to [phone] with remote ID "[id number]" Result: Success Page record: 1 - 3 Elapsed time: 01:39 on channel 48 07/01/2024 3:37:19 PM Conversion Successfully created cover sheet. Type: application/vnd.openxmlf ormats-officedocument.wo rdprocessingml.document G3 to TIFF #1: Success [image/g3] (11ms) GhostScript TIFF #1: Success [image/tiff] (70ms) Resubmitted: [application/postscript] Word Automation #1: Success [image/g3] (1519ms) ([id number]) [facility] 36 S: Patient spoke wit [...] smelled "fecal". 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 R: Patient understands care advice to go to ED now or call 911. Patient states she cannot leave her child at this time, but will go as soon as she has someone to take over care. Patient strongly advised to go immediately. She advises she will go to [facility]. No further needs at this time. Patient [...] menstrual period?" no Protocols used: Abdominal Pain- [id number] Normal [facility] Abdomen/Pelvis W IV Cont ONL Yon 07-01-2024 Abdomen/Pelvis W IV Cont ONLY Normal [facility] Absolute lymphocyte countOrd ered By: Anita Willis on 07-01-2024 Lymphocytes Auto (Unsp spec) [#/Vol] 0.97 10*3/uL 0.83-4.51 [facility] Absolute neutrophil countOrd ered By: Anita Willis on 07-01-2024 Neutrophils (Bld) [#/Vol] 11.3 10*3/uL High 2.0-7.7 [facility] Anion gap in Serum or Plasma Ordered By: Anita Willis on 07-01-2024 Anion gap [Moles/Vol] 12 mmol/L 5- [facility] Automated lymphocyte count a s percentage of total leukocytesOrdered By: Anita Willis on 07-01-2024 Lymphocytes/100 WBC Auto (Unsp spec) 7.5 % Low - [facility] BUN/creatinine ratioOrdered By: Anita Willis on 07-01-2024 Urea nitrogen/Creatinine [Mass ratio] 14.9 mg/mg 12-31 [facility] Basophil percentageOrdered B y: Anita Willis on 07-01-2024 Basophils/100 WBC (Bld) 0.4 % 0-1 [facility] Beta HCG ( test) Ql Ordered By: Anita Willis on 07-01-2024 Serum Test, Qualitative Negative [facility] Bilirubin Test strip Ql (U)O rdered By: Anita Willis on 07-01-2024 Bilirubin Ql (U) Negative Negative [facility] Bilirubin, totalOrdered By: Anita Willis on 07-01-2024 Bilirubin [Mass/Vol] 0.66 mg/dL Normal 0.00-1.30 [facility] Comment on above: Performed By: #### L 700.6800, L100.0100, L501.2450, L500.4050 ####[facility] [address] [place], [address] CBC W/Diff, Automatedon 06-13 Absolute Lymph 0.97 X10 3/uL Normal 0.83-4.51 [facility] Comment on above: Performed By: #### L 700.6800, L100.0100, L501.2450, L500.4050 ####[facility] [address] [place], [address] Absolute Neut 11.3 X10 3/uL High 2.0-7.7 [facility] Comment on above: Performed By: #### L 700.6800, L100.0100, L501.2450, L500.4050 ####[facility] [address] [place], [address] Basophils/100 WBC (Bld) 0.4 % Normal 0-1 [facility] Comment on above: Performed By: #### L 700.6800, L100.0100, L501.2450, L500.4050 ####[facility] [address] [place], [address] Eosinophils/100 WBC (Bld) 0.9 % Normal 0-5 [facility] Comment on above: Performed By: #### L 700.6800, L100.0100, L501.2450, L500.4050 ####[facility] [address] [place], [address] Erythrocyte distribution width (RBC) [Ratio] 14.9 % High 11.6-14.6 [facility] Comment on above: Performed By: #### L 700.6800, L100.0100, L501.2450, L500.4050 ####[facility] [address] [place], [address] Hematocrit (Bld) [Volume fraction] 43.5 % Normal 37-47 [facility] Comment on above: Performed By: #### L 700.6800, L100.0100, L501.2450, L500.4050 ####[facility] [address] [place], [address] Hemoglobin (Bld) [Mass/Vol] 14.7 g/dL Normal 12.0-15.0 [facility] Comment on above: Performed By: #### L 700.6800, L100.0100, L501.2450, L500.4050 ####[facility] [address] [place], [address] IG% 0.400 Normal 0.0-0.9 [facility] Comment on above: Result Comment: IG% - Immature Granulocytes (promyelocytes, myelocytes andmetamyelocytes) > 1% indicates that a LEFT SHIFT is Present. Performed By: #### L 700.6800, L100.0100, L501.2450, L500.4050 ####[facility] [address] [place], [address] Lymphocytes/100 WBC (Bld) 7.5 % Low 19-41 [facility] Comment on above: Performed By: #### L 700.6800, L100.0100, L501.2450, L500.4050 ####[facility] [address] [place], [address] MCH (RBC) [Entitic mass] 32.7 pg High 27.0-32.0 [facility] Comment on above: Performed By: #### L 700.6800, L100.0100, L501.2450, L500.4050 ####[facility] [address] [place], [address] MCHC (RBC) [Mass/Vol] 33.8 g/dL Normal 32-36 [facility] Comment on above: Performed By: #### L 700.6800, L100.0100, L501.2450, L500.4050 ####[facility] [address] [place], [address] MCV (RBC) [Entitic vol] 96.7 fL Normal 81-99 [facility] Comment on above: Performed By: #### L 700.6800, L100.0100, L501.2450, L500.4050 ####[facility] [address] [place], [address] Monocytes/100 WBC (Bld) 3.1 % Normal 0-10 [facility] Comment on above: Performed By: #### L 700.6800, L100.0100, L501.2450, L500.4050 ####[facility] [address] [place], [address] Neutrophils/100 WBC (Bld) 87.7 % High 47-70 [facility] Comment on above: Performed By: #### L 700.6800, L100.0100, L501.2450, L500.4050 ####[facility] [address] [place], [address] Nucleated RBC (Bld) [#/Vol] 0 10*3/uL Normal 0-5 [facility] Comment on above: Performed By: #### L 700.6800, L100.0100, L501.2450, L500.4050 ####[facility] [address] [place], [address] Platelet mean volume (Bld) [Entitic vol] 10.7 fL Normal 6.2-12.0 [facility] Comment on above: Performed By: #### L 700.6800, L100.0100, L501.2450, L500.4050 ####[facility] [address] [place], [address] Platelets (Bld) [#/Vol] 239 10*3/uL Normal 150-450 [facility] Comment on above: Performed By: #### L 700.6800, L100.0100, L501.2450, L500.4050 ####[facility] [address] [place], [address] RBC (Bld) [#/Vol] 4.50 10*6/uL Normal 4.2-5.4 [facility] Comment on above: Performed By: #### L 700.6800, L100.0100, L501.2450, L500.4050 ####[facility] [address] [place], [address] RDW SD 53.1 fl High 35.1-43.9 [facility] Comment on above: Performed By: #### L 700.6800, L100.0100, L501.2450, L500.4050 ####[facility] [address] [place], [address] WBC (Bld) [#/Vol] 12.9 10*3/uL High 4.4-11.0 [facility] [place] Comment on above: Performed By: #### L 700.6800, L100.0100, L501.2450, L500.4050 ####[facility] [address] [place], [address] Carbon dioxide, total [Moles /volume] in Central venous bloodOrdered By: Anita Willis on 07-01-2024 CO2 [Moles/Vol] 19.2 mmol/L Low 21.0-32.0 [facility] Comment on above: Performed By: #### L 700.6800, L100.0100, L501.2450, L500.4050 ####[facility] [address] [place], [address] Chloride assayOrdered By: Reyna Willis on 07-01-2024 Chloride [Moles/Vol] 109 mmol/L High 98-108 [facility] Comment on above: Performed By: #### L 700.6800, L100.0100, L501.2450, L500.4050 ####[facility] [address] [place], [address] Comprehensive Metabolic Prof ilon 07-01-2024 ALK PHOS 116 U/L High 35-104 [facility] Comment on above: Performed By: #### L 700.6800, L100.0100, L501.2450, L500.4050 ####[facility] [address] [place], [address] BUN/CRE 14.9 RATIO Normal 10-20 [facility] Comment on above: Performed By: #### L 700.6800, L100.0100, L501.2450, L500.4050 ####[facility] [address] [place], [address] ECRCL 59.61 ml/min Normal 50-250 [facility] Comment on above: Performed By: #### L 700.6800, L100.0100, L501.2450, L500.4050 ####[facility] [address] [place], [address] GAP 12 Normal 5-15 [facility] Comment on above: Performed By: #### L 700.6800, L100.0100, L501.2450, L500.4050 ####[facility] [address] [place], [address] T PROT 6.7 g/dL Normal 5.9-8.4 [facility] Comment on above: Performed By: #### L 700.6800, L100.0100, L501.2450, L500.4050 ####[facility] [address] [place], [address] Comprehensive Metabolic Prof ilOrdered By: Anita Willis on 07-01-2024 AST [Catalytic activity/Vol] 30 U/L Normal <=31 [facility] Comment on above: Performed By: #### L 700.6800, L100.0100, L501.2450, L500.4050 ####[facility] [address] [place], [address] Emergency Department Summary on 07-01-2024 Emergency Department Summary Normal [facility] Eosinophil percentageOrdered By: Anita Willis on 07-01-2024 Eosinophils/100 WBC (Bld) 0.9 % 0-5 [facility] Epithelial cells.squamous LM Ql (Urine sed)Ordered By: Anita Willis on 07-01-2024 Epithelial cells.squamous LM.HPF (Urine sed) [#/Area] 0 /[HPF] 5-10 [facility] Erythrocyte distribution wid th (RBC) [Ratio]Ordered By: Anita Willis on 07-01-2024 Erythrocyte distribution width (RBC) [Entitic vol] 53.1 fL High 35.1-43.9 [facility] Erythrocyte distribution wid th ratioOrdered By: Anita Willis on 07-01-2024 Erythrocyte distribution width (RBC) [Ratio] 14.9 % High 11.6-14.6 [facility] Erythrocyte distribution wid th standard deviationOrdered By: Anita Willis on 07-01-2024 Erythrocyte distribution width (RBC) [Ratio] 53.1 fl High 35.1-43.9 [facility] Estimation of creatinine monico aranceOrdered By: Anita Willis on 07-01-2024 Estimated Creatinine Clearance Calc 59.61 ml/min 50-250 [facility] GFR/1.73 sq M.predicted shweta g non-blacks MDRD (S/P/Bld) [Vol rate/Area]Ordered By: Anita Willis on 07-01-2024 Estimated GFR (MDRD) Non-Af Amer 68 >60 [facility] Comment on above: mL/min/1.73m2 CKD-EP I Creatinine Equation (2020) Glomerular filtration rate ( GFR) estimation/1.73 sq m using serum, plasma, or whole bOrdered By: Anita Willis on 07-01-2024 GFR/1.73 sq M.predicted among non-blacks MDRD (S/P/Bld) [Vol rate/Area] 68 mL/min/{1.73_m2} Normal >60 [facility] Comment on above: mL/min/1.73m2 CKD-EP I Creatinine Equation (2020) Result Comment: mL/m in/1.73m2 CKD-EPI Creatinine Equation (2020) Performed By: #### L 700.6800, L100.0100, L501.2450, L500.4050 ####[facility] [address] [place], [address] Glucose Ql (U)Ordered By: Reyna Willis on 07-01-2024 Urine Glucose (UA) Normal mg/dl Normal [facility] Hematocrit Auto (Bld) [Volum e fraction]Ordered By: Anita Willis on 07-01-2024 Hematocrit (Bld) [Volume fraction] 43.5 % 37-47 [facility] Hemoglobin measurementOrdere d By: Anita Willis on 07-01-2024 Hemoglobin (Bld) [Mass/Vol] 14.7 g/dL 12.0-15.0 [facility] Immature granulocytes/100 WB C Auto (Bld)Ordered By: Anita Willis on 07-01-2024 Immature granulocytes/100 WBC (Bld) 0.400 % 0.0-0.9 [facility] Comment on above: IG% - Immature Granu locytes (promyelocytes, myelocytes and metamyelocytes) > 1% indicates that a LEFT SHIFT is Present. Ketones Test strip Ql (U)Ord ered By: Anita Willis on 07-01-2024 Ketones Ql (U) Negative Negative [facility] Lipase measurementOrdered By : Anita Willis on 07-01-2024 Lipase [Catalytic activity/Vol] 35 U/L Normal 13-75 [facility] Comment on above: Please note:LIPASE r evised [...] By: #### L 700.6800, L100.0100, L501.2450, L500.4050 ####[facility] [address] [place], [address] Lymphocytes Auto (Unsp spec) [#/Vol]Ordered By: Anita Willis on 07-01-2024 Lymphocytes (Bld) [#/Vol] 0.97 10*3/uL 0.83-4.51 [facility] Lymphocytes/100 WBC Auto (Un sp spec)Ordered By: Anita Willis on 07-01-2024 Lymphocytes/100 WBC (Bld) 7.5 % Low 19-41 [facility] MCV (mean corpuscular volume ) determinationOrdered By: Anita Willis on 07-01-2024 MCV (RBC) [Entitic vol] 96.7 fL 81-99 [facility] Mean corpuscular hemoglobin (MCH) determinationOrdered By: Anita Willis on 07-01-2024 MCH (RBC) [Entitic mass] 32.7 pg High 27.0-32.0 [facility] Mean corpuscular hemoglobin concentration (MCHC) determinationOrdered By: Anita Willis on 07-01-2024 MCHC (RBC) [Mass/Vol] 33.8 g/dL 32-36 [facility] Mean platelet volume determi nationOrdered By: Anita Willis on 07-01-2024 Platelet mean volume (Bld) [Entitic vol] 10.7 fL 6.2-12.0 [facility] Microscopic analysis of urin e for red blood cells (RBC)Ordered By: Anita Willis on 07-01-2024 Microscopic analysis of urine for red blood cells (RBC) 0-5 SEEN /hpf 0-5 [facility] Urine RBC 0-5 SEEN /hpf 0-5 [facility] Monocyte percentageOrdered B y: Anita Willis on 07-01-2024 Monocytes/100 WBC (Bld) 3.1 % 0-10 [facility] Mucus LM Ql (Urine sed)Order ed By: Anita Willis on 07-01-2024 Mucus Ql (Urine sed) 0 SEEN /hpf [facility] Neutrophil percentageOrdered By: Anita Willis on 07-01-2024 Neutrophils/100 WBC (Bld) 87.7 % High 47-70 [facility] Nitrite Test strip Ql (U)Ord ered By: Anita Willis on 07-01-2024 Nitrite Ql (U) Negative Negative [facility] No Panel InformationOrdered By: Anita Willis on 07-01-2024 30 U/L <32 [facility] Nucleated red blood cell per centageOrdered By: Anita Willis on 07-01-2024 Nucleated RBC/100 WBC (Bld) [Ratio] 0 % 0-5 [facility] Platelet countOrdered By: Reyna Willis on 07-01-2024 Platelets (Bld) [#/Vol] 239 10*3/uL 150-450 [facility] Potassium measurement (mass/ volume)Ordered By: Anita Willis on 07-01-2024 Potassium (Unsp spec) [Mass/Vol] 4.0 mmol/L 3.3-5.1 [facility] Potassium [Moles/Vol] 4.0 mmol/L Normal 3.3-5.1 [facility] Comment on above: Performed By: #### L 700.6800, L100.0100, L501.2450, L500.4050 ####[facility] [address] [place], [place], [id number] ,Serum,hCG Quali.on 07-01-2024 HCG, SERUM QUAL Negative Normal [facility] Comment on above: Performed By: #### L 700.6800, L100.0100, L501.2450, L500.4050 ####[facility] [address] [place], [place], [address] Protein Test strip Ql (U)Ord ered By: Anita Willis on 07-01-2024 Protein Ql (U) 30 mg/dl High Negative [facility] RBC Auto (Bld) [#/Vol]Ordere d By: Anita Willis on 07-01-2024 RBC (Bld) [#/Vol] 4.50 10*6/uL 4.2-5.4 [facility] Serum beta-hCG test, qualita tiveOrdered By: Anita Willis on 07-01-2024 Beta HCG ( test) Ql Negative [facility] Serum creatinine measurement (mass/volume)Ordered By: Anita Willis on 07-01-2024 Creatinine [Mass/Vol] 1.04 mg/dL Normal 0.70-1.20 [facility] Comment on above: Performed By: #### L 700.6800, L100.0100, L501.2450, L500.4050 ####[facility] [address] [place], [address] Serum globulin measurementOr dered By: Anita Willis on 07-01-2024 Globulin (S) [Mass/Vol] 2.5 g/dL Normal 2.2-4.2 [facility] Comment on above: Performed By: #### L 700.6800, L100.0100, L501.2450, L500.4050 ####[facility] [address] [place], [address] Serum glucose measurement (m ass/volume)Ordered By: Anita Willis on 07-01-2024 Glucose [Mass/Vol] 103 mg/dL High 70-99 [facility] Comment on above: Performed By: #### L 700.6800, L100.0100, L501.2450, L500.4050 ####[facility] [address] [place], [address] Serum or plasma alanine hair otransferase (ALT) measurementOrdered By: Anita Willis on 07-01-2024 ALT [Catalytic activity/Vol] 27 U/L Normal <=34 [facility] Comment on above: Performed By: #### L 700.6800, L100.0100, L501.2450, L500.4050 ####[facility] [address] [place], [address] Serum or plasma albumin leslie urement (mass/volume)Ordered By: Anita Willis on 07-01-2024 Albumin [Mass/Vol] 4.2 g/dL Normal 3.5-5.0 [facility] Comment on above: Performed By: #### L 700.6800, L100.0100, L501.2450, L500.4050 ####[facility] [address] [place], [address] Serum or plasma albumin/glob ulin mass ratioOrdered By: Anita Willis on 07-01-2024 Albumin/Globulin [Mass ratio] 1.7 {ratio} Normal 0.9-2.4 [facility] Comment on above: Performed By: #### L 700.6800, L100.0100, L501.2450, L500.4050 ####[facility] [address] [place], [address] Serum or plasma alkaline delfin sphatase measurementOrdered By: Anita Willis on 07-01-2024 ALP [Catalytic activity/Vol] 116 U/L High 35-104 [facility] Serum or plasma calcium leslie urement (mass/volume)Ordered By: Anita Willis on 07-01-2024 Calcium [Mass/Vol] 9.0 mg/dL Normal 7.6-11.0 [facility] Comment on above: Performed By: #### L 700.6800, L100.0100, L501.2450, L500.4050 ####[facility] [address] [place], [address] Serum or plasma urea nitroge n measurement (mass/volume)Ordered By: Anita Willis on 07-01-2024 Urea nitrogen [Mass/Vol] 16 mg/dL Normal 4-19 [facility] Comment on above: Performed By: #### L 700.6800, L100.0100, L501.2450, L500.4050 ####[facility] [address] [place], [address] Sodium levelOrdered By: Dakotah Willis on 07-01-2024 Sodium [Moles/Vol] 139 mmol/L Normal 133-145 [facility] Comment on above: Performed By: #### L 700.6800, L100.0100, L501.2450, L500.4050 ####[facility] [address] [place], [address] Squamous epithelial cells de tection in urine sediment by light microscopyOrdered By: Anita Willis on 07-01-2024 Epithelial cells.squamous LM Ql (Urine sed) 0-5 SEEN /hpf 5-10 [facility] Total proteinOrdered By: Florin Willis on 07-01-2024 Protein [Mass/Vol] 6.7 g/dL 5.9-8.4 [facility] Urinalysis, Completeon 07-01 BACTERIA 2+ /hpf Normal None Seen [facility] Comment on above: Order Comment: HARITHA CTOR TO SPECIFY Performed By: #### L 400.0001 ####[facility] [address] [place], [address] EPI,SQUAMOUS 0-5 SEEN Normal 5-10 [facility] Comment on above: Order Comment: HARITHA CTOR TO SPECIFY Performed By: #### L 400.0001 ####[facility] [address] [place], [address] RBC 0-5 SEEN Normal 0-5 [facility] Comment on above: Order Comment: HARITHA CTOR TO SPECIFY Performed By: #### L 400.0001 ####[facility] [address] [place], [address] Mucus Ql (Urine sed) 0 SEEN Normal [facility] Comment on above: Order Comment: HARITHA CTOR TO SPECIFY Performed By: #### L 400.0001 ####[facility] [address] [place], [address] WBC 0 SEEN Normal 0-5 [facility] Comment on above: Order Comment: HARITHA CTOR TO SPECIFY Performed By: #### L 400.0001 ####[facility] [address] [place], [address] Urine blood detectionOrdered By: Anita Willis on 07-01-2024 Urine Occult Blood 50 /ul High Negative [facility] Urine clarityOrdered By: Florin Willis on 07-01-2024 Clarity (U) Clear Clear [facility] Urine color determinationOrd ered By: Anita Willis on 07-01-2024 Color (U) Yellow Yellow [facility] Urine glucose detectionOrder ed By: Anita Willis on 07-01-2024 Glucose Ql (U) Normal mg/dl Normal [facility] Urine leukocyte esterase det ection by dipstickOrdered By: Anita Willis on 07-01-2024 Leukocyte esterase Test strip Ql (U) Negative Negative [facility] Urine pHOrdered By: Parag Willis on 07-01-2024 pH (U) 6.0 [pH] 5.0 - 8.0 [facility] Urine sediment bacteria coun t by microscopy (number/high power field)Ordered By: Anita Willis on 07-01-2024 Bacteria LM.HPF (Urine sed) [#/Area] 2 /[HPF] None Seen [facility] Urine specific gravity measu rementOrdered By: Anita Willis on 07-01-2024 Specific gravity (U) [Rel density] 1.010 1.002-1.03 0 [facility] Urine urobilinogen measureme ntOrdered By: Anita Willis on 07-01-2024 Urobilinogen Ql (U) Normal mg/dl Normal [facility] Urobilinogen Ql (U)Ordered B y: Anita Willis on 07-01-2024 Urine Urobilinogen Normal mg/dl Normal [facility] White blood cell (WBC) count Ordered By: Anita Willis on 07-01-2024 WBC (Bld) [#/Vol] 12.9 10*3/uL High 4.4-11.0 [facility] White blood cell countOrdere d By: Anita Willis on 07-01-2024 Urine WBC 0 SEEN /hpf 0-5 [facility] White blood cell count 0 SEEN /hpf 0-5 [facility] CASE MANAGEMon 05-21-[address] [facility] CBC panel Auto (Bld)on 05-21 Erythrocyte distribution width (RBC) [Ratio] 14.0 % Normal 11.5-15.0 [facility] Comment on above: Order Comment: Speci men Type: BLOOD SPECIMENOrdering Facility: [facility] Address: [address] [place] [address] Performed By: #### 5 8410-2 ####[facility] [id number] [address] OF [facility] Hematocrit (Bld) [Volume fraction] 49.4 % High 36.0-46.0 [facility] Comment on above: Order Comment: Speci men Type: BLOOD SPECIMENOrdering Facility: [facility] Address: [address] [place] [address] Performed By: #### 5 8410-2 ####[facility] [id number] [address] OF [place] Hemoglobin (Bld) [Mass/Vol] 16.5 g/dL High 11.5-15.5 [facility] Comment on above: Order Comment: Speci men Type: BLOOD SPECIMENOrdering Facility: [facility] Address: [address] [place] [address] Performed By: #### 5 8410-2 ####[facility] [id number] [address] MCH (RBC) [Entitic mass] 32.0 pg Normal 26.0-34.0 [facility] Comment on above: Order Comment: Speci men Type: BLOOD SPECIMENOrdering Facility: [facility] Address: [address] [place] [address] Performed By: #### 5 8410-2 ####[facility] [id number] [address] MCHC (RBC) [Mass/Vol] 33.4 g/dL Normal 30.5-36.0 [facility] Comment on above: Order Comment: Speci men Type: BLOOD SPECIMENOrdering Facility: [facility] Address: [address] [place] [address] Performed By: #### 5 8410-2 ####[facility] [id number] [address] MCV (RBC) [Entitic vol] 95.7 fL Normal 80.0-100.0 [facility] Comment on above: Order Comment: Speci men Type: BLOOD SPECIMENOrdering Facility: [facility] Address: [address] [place] [address] Performed By: #### 5 8410-2 ####[facility]ORYCLIA [id number] [place] [address] [place] Nucleated RBC (Bld) [#/Vol] 10*3/uL Normal <0.01 [facility] Comment on above: Order Comment: Speci men Type: BLOOD SPECIMENOrdering Facility: [facility] Address: [address] [place] [address] Performed By: #### 5 8410-2 ####[facility]ORY[facility] [id number] [place] [address] [place] Platelet mean volume (Bld) [Entitic vol] 10.0 fL Normal 9.0-12.7 [facility] Comment on above: Order Comment: Speci men Type: BLOOD SPECIMENOrdering Facility: [facility] Address: [address] [address] Performed By: #### 5 8410-2 ####[facility]ORYCLIA [id number] [place] [address] [place] Platelets (Bld) [#/Vol] 288 10*3/uL Normal 150-400 [facility] Comment on above: Order Comment: Speci men Type: BLOOD SPECIMENOrdering Facility: [facility] Address: [address] [address] Performed By: #### 5 8410-2 ####[facility]ORYCLIA [id number] [place] [address] [place] RBC (Bld) [#/Vol] 5.16 10*6/uL Normal 3.90-5.20 [facility] Comment on above: Order Comment: Speci men Type: BLOOD SPECIMENOrdering Facility: [facility] Address: [address] [place] [address] Performed By: #### 5 8410-2 ####[facility]ORYCLIA [id number] [place] [address] [place] WBC (Bld) [#/Vol] 12.02 10*3/uL High 3.70-11.00 [facility] Comment on above: Order Comment: Speci men Type: BLOOD SPECIMENOrdering Facility: [facility] Address: [address] [place] [address] Performed By: #### 5 8410-2 ####[facility]ORYCLIA [id number] [place] [address] [place] CNCOon 05-21-20[address] Text Normal [facility] CNDSon 05-21-[address] [facility] Comprehensive metabolic 2000 panelon 05-21-2024 Albumin [Mass/Vol] 4.0 g/dL Normal 3.9-4.9 [facility] Comment on above: Order Comment: Speci men Type: BLOOD SPECIMENOrdering Facility: [facility] Address: [address] [place] [address] Performed By: #### 2 4323-8 ####[facility]ORYCLIA [id number] [place] [address] [place] ALP [Catalytic activity/Vol] 223 U/L High 34-123 [facility] Comment on above: Order Comment: Speci men Type: BLOOD SPECIMENOrdering Facility: [facility] Address: [address] [place] [address] Performed By: #### 2 4323-8 ####[facility]ORYCLIA [id number] [place] [address] [place] ALT [Catalytic activity/Vol] 113 U/L High 7-38 [facility] Comment on above: Order Comment: Speci men Type: BLOOD SPECIMENOrdering Facility: [facility] Address: [address] [place] [address] Performed By: #### 2 4323-8 ####[facility]ORYCLIA [id number] [place] [address] [place] Anion gap [Moles/Vol] 17 mmol/L High 8-15 [facility] Comment on above: Order Comment: Speci men Type: BLOOD SPECIMENOrdering Facility: [facility] Address: [address] [place] [address] Performed By: #### 2 4323-8 ####[facility]ATORYCLIA [id number] [place] [address] [place] AST [Catalytic activity/Vol] Normal [facility] Comment on above: Order Comment: Speci men Type: BLOOD SPECIMENOrdering Facility: [facility] Address: [address] [place] [address] Result Comment: Unab le to assay due to interference from hemolysis. Suggest reorder as clinically indicated. Performed By: #### 2 4323-8 ####[facility]ORYCLIA [id number] [place] [address] [place] Bilirubin [Mass/Vol] 0.4 mg/dL Normal 0.2-1.3 [facility] Comment on above: Order Comment: Speci men Type: BLOOD SPECIMENOrdering Facility: [facility] Address: [address] [place] [address] Performed By: #### 2 4323-8 ####[facility]ATORYCLIA [id number] [place] [address] [place] Calcium [Mass/Vol] 9.8 mg/dL Normal 8.5-10.2 [facility] Comment on above: Order Comment: Speci men Type: BLOOD SPECIMENOrdering Facility: [facility] Address: [address] [place] [address] Performed By: #### 2 4323-8 ####[facility]ORATORYCLIA [id number] [place] [id number] [place] Chloride [Moles/Vol] 95 mmol/L Low 98-107 [facility] Comment on above: Order Comment: Speci men Type: BLOOD SPECIMENOrdering Facility: [facility] Address: [address] [place] [place] [id number] Performed By: #### 2 4323-8 ####[facility]ATORYCLIA [id number] [place] [address] [place] CO2 [Moles/Vol] 22 mmol/L Normal 22-30 [facility] Comment on above: Order Comment: Speci men Type: BLOOD SPECIMENOrdering Facility: [facility] Address: [address] [place], [place] [address], [place] [address] Performed By: #### 2 4323-8 ####[facility]ATORYCLIA [id number] [address] [place] Creatinine [Mass/Vol] 0.94 mg/dL Normal 0.58-0.96 [facility] Comment on above: Order Comment: David horton Type: BLOOD SPECIMENOrdering Facility: [facility] Address: [address] [place] [address] Performed By: #### 2 4323-8 ####[facility]ATORYCLIA [id number] [address] Creatinine and Glomerular filtration rate.predicted panel (S/P/Bld) 77 mL/min/1.73m??? Normal >=60 [facility] Comment on above: Order Comment: Daivd horton Type: BLOOD SPECIMENOrdering Facility: [facility] Address: [address] [place] [address] Result Comment: Vidal mated Glomerular Filtration Rate [...] Performed By: #### 2 4323-8 ####[facility]ATORYCLIA [id number] [address] OF [facility] Glucose [Mass/Vol] 82 mg/dL Normal 74-99 [facility] Comment on above: Order Comment: David horton Type: BLOOD SPECIMENOrdering Facility: [facility] Address: [address] [place] [address] Result Comment: The [place] [employer] (ADA) provides guidance for cutoff values for fasting glucose and random glucose. The ADA defines fasting as no caloric intake for at least 8 hours. Fasting plasma glucose results between 100 to 125 mg/dL indicate increased risk for diabetes (prediabetes).Fasting plasma glucose results greater than or equal to 126 mg/dL meet the criteria for diagnosis of diabetes. In the absence of unequivocal hyperglycemia, results should be confirmed by repeat testing. In a patient with classic symptoms of hyperglycemia or hyperglycemic crisis, random plasma glucose results greater than or equal to 200 mg/dL meet the criteria for diagnosis of diabetes.Reference: Standards of Medical Care in Diabetes 2016, [place] [employer]. Diabetes Care. 2016.39(Suppl 1). Performed By: #### 2 4323-8 ####[facility]ORATORYCLIA [id number] [place] [address] [place] Potassium [Moles/Vol] 4.7 mmol/L Normal 3.7-5.1 [facility] Comment on above: Order Comment: Kianai sol Type: BLOOD SPECIMENOrdering Facility: [facility] Address: [address] [place] [address] Performed By: #### 2 4323-8 ####[facility]ATORYCLIA [id number] [address] [place] Protein [Mass/Vol] 7.0 g/dL Normal 6.3-8.0 [facility] Comment on above: Order Comment: Kianai sol Type: BLOOD SPECIMENOrdering Facility: [facility] Address: [address] [place] [address] Performed By: #### 2 4323-8 ####[facility]ORATORYCLIA [id number] [address] [facility] Sodium [Moles/Vol] 134 mmol/L Low 136-144 [facility] Comment on above: Order Comment: Kainai men Type: BLOOD SPECIMENOrdering Facility: [facility] Address: [address] [place] [address] Performed By: #### 2 4323-8 ####[facility]ORATORYCLIA [id number] [address] [address] [place] Urea nitrogen [Mass/Vol] 22 mg/dL High 7-21 [facility] Comment on above: Order Comment: Kianai men Type: BLOOD SPECIMENOrdering Facility: [facility] Address: [address] [place] [address] Performed By: #### 2 4323-8 ####[facility] LABORATORYCLIA [id number] [address] [place] ALLIED HEALTHon 05-20-[address] [facility] CBC panel Auto (Bld)on 05-20 Erythrocyte distribution width (RBC) [Ratio] 13.8 % Normal 11.5-15.0 [facility] Comment on above: Order Comment: Speci men Type: BLOOD SPECIMENOrdering Facility: [facility] Address: [address] [place] [address] Performed By: #### 5 8410-2 ####[facility] LABORATORYCLIA [id number] [address] Hematocrit (Bld) [Volume fraction] 49.3 % High 36.0-46.0 [facility] Comment on above: Order Comment: Speci men Type: BLOOD SPECIMENOrdering Facility: [facility] Address: [address] [place] [address] Performed By: #### 5 8410-2 ####[facility] LABORATORYCLIA [id number] [address] Hemoglobin (Bld) [Mass/Vol] 16.3 g/dL High 11.5-15.5 [facility] Comment on above: Order Comment: Speci men Type: BLOOD SPECIMENOrdering Facility: [facility] Address: [address] [place] [address] Performed By: #### 5 8410-2 ####[facility] LABORATORYCLIA [id number] [address] MCH (RBC) [Entitic mass] 31.3 pg Normal 26.0-34.0 [facility] Comment on above: Order Comment: Speci men Type: BLOOD SPECIMENOrdering Facility: [facility] Address: [address] [place] [address] Performed By: #### 5 8410-2 ####[facility] LABORATORYCLIA [id number] [address] MCHC (RBC) [Mass/Vol] 33.1 g/dL Normal 30.5-36.0 [facility] Comment on above: Order Comment: Speci men Type: BLOOD SPECIMENOrdering Facility: [facility] Address: [address] [place] [address] Performed By: #### 5 8410-2 ####[facility] LABORATORYCLIA [id number] [address] [place] MCV (RBC) [Entitic vol] 94.8 fL Normal 80.0-100.0 M [facility] Comment on above: Order Comment: Speci men Type: BLOOD SPECIMENOrdering Facility: [facility] Address: [address] [place] [address] Performed By: #### 5 8410-2 ####[facility] LABORATORYCLIA [id number] [place] [address] [place] Nucleated RBC (Bld) [#/Vol] 10*3/uL Normal <0.01 [facility] Comment on above: Order Comment: Speci men Type: BLOOD SPECIMENOrdering Facility: [facility] Address: [address] [place] [address] Performed By: #### 5 8410-2 ####[facility] LABORATORYCLIA [id number] [address] [place] Platelet mean volume (Bld) [Entitic vol] 9.8 fL Normal 9.0-12.7 [facility] Comment on above: Order Comment: Speci men Type: BLOOD SPECIMENOrdering Facility: [facility] Address: [address] [place] [address] Performed By: #### 5 8410-2 ####[facility] LABORATORYCLIA [id number] [address] [place] Platelets (Bld) [#/Vol] 326 10*3/uL Normal 150-400 [facility] Comment on above: Order Comment: Speci men Type: BLOOD SPECIMENOrdering Facility: [facility] Address: [address] [place] [address] Performed By: #### 5 8410-2 ####[facility] LABORATORYCLIA [id number] [address] [place] RBC (Bld) [#/Vol] 5.20 10*6/uL Normal 3.90-5.20 [facility] Comment on above: Order Comment: Speci men Type: BLOOD SPECIMENOrdering Facility: [facility] Address: [facility] [address] Performed By: #### 5 8410-2 ####[facility] LABORATORYCLIA [id number] [address] WBC (Bld) [#/Vol] 21.90 10*3/uL High 3.70-11.00 [facility] Comment on above: Order Comment: Speci men Type: BLOOD SPECIMENOrdering Facility: [facility] Address: [address] [place], [place] [address] [address] Performed By: #### 5 8410-2 ####[facility] LABORATORYCLIA [id number] [address] CONSULT PROGon 05-20-[address] [facility] Comprehensive metabolic 2000 panelon 05-20-2024 Albumin [Mass/Vol] 4.2 g/dL Normal 3.9-4.9 [facility] Comment on above: Order Comment: Speci men Type: BLOOD SPECIMENOrdering Facility: [facility] Address: [address] [place] [address] Performed By: #### 3 040-3, 38753-3 ####[facility] LABORATORYCLIA [id number] [address] ALP [Catalytic activity/Vol] 228 U/L High 34-123 [facility] Comment on above: Order Comment: Speci men Type: BLOOD SPECIMENOrdering Facility: [facility] Address: [address] [place] [address] Performed By: #### 3 040-3, 57460-5 ####[facility] LABORATORYCLIA [id number] [address] ALT [Catalytic activity/Vol] 50 U/L High 7-38 [facility] Comment on above: Order Comment: Speci men Type: BLOOD SPECIMENOrdering Facility: [facility] Address: [address] [place] [address] [place] [address] Performed By: #### 3 040-3, 89331-3 ####[facility] LABORATORYCLIA [id number] [place] [address] [place] Anion gap [Moles/Vol] 14 mmol/L Normal 8-15 [facility] Comment on above: Order Comment: Speci men Type: BLOOD SPECIMENOrdering Facility: [facility] Address: [address] [place] [address] Performed By: #### 3 040-3, ####[facility] LABORATORYCLIA [id number] [place] [address] [place] AST [Catalytic activity/Vol] 34 U/L Normal 13-35 [facility] Comment on above: Order Comment: Speci men Type: BLOOD SPECIMENOrdering Facility: [facility] Address: [address] [place] [address] Performed By: #### 3 040-3, ####[facility] LABORATORYCLIA [id number] [address] [place] Bilirubin [Mass/Vol] 0.4 mg/dL Normal 0.2-1.3 [facility] Comment on above: Order Comment: Speci men Type: BLOOD SPECIMENOrdering Facility: [facility] Address: [address] [place] [address] Performed By: #### 3 040-3, ####[facility] LABORATORYCLIA [id number] [address] [facility] Calcium [Mass/Vol] 10.3 mg/dL High 8.5-10.2 [facility] Comment on above: Order Comment: Speci men Type: BLOOD SPECIMENOrdering Facility: [facility] Address: [address] [place] [address] Performed By: #### 3 040-3, 29239-3 ####[facility] LABORATORYCLIA [id number] [place] [id number] [place] Chloride [Moles/Vol] 94 mmol/L Low 98-107 [facility] Comment on above: Order Comment: Speci men Type: BLOOD SPECIMENOrdering Facility: [facility] Address: [address] [place] [address] Performed By: #### 3 040-3, 95483-8 ####[facility] LABORATORYCLIA [id number] [address] [place] CO2 [Moles/Vol] 25 mmol/L Normal 22-30 [facility] Comment on above: Order Comment: David horton Type: BLOOD SPECIMENOrdering Facility: [facility] Address: [address] [place] [address] Performed By: #### 3 040-3, 07737-2 ####[facility] LABORATORYCLIA [id number] [address] [place] Creatinine [Mass/Vol] 0.90 mg/dL Normal 0.58-0.96 [facility] Comment on above: Order Comment: David men Type: BLOOD SPECIMENOrdering Facility: [facility] Address: [address] [place] [address] Performed By: #### 3 040-3, ####[facility] LABORATORYCLIA [id number] [address] Creatinine and Glomerular filtration rate.predicted panel (S/P/Bld) 81 mL/min/1.73m??? Normal >=60 [facility] Comment on above: Order Comment: David sol Type: BLOOD SPECIMENOrdering Facility: [facility] Address: [address] [place] [address] Result Comment: Vidal mated Glomerular Filtration Rate [...] accurately reflect actual GFR. Performed By: #### 3 040-3, 28974-9 ####[facility] LABORATORYCLIA [id number] [address] STATES OF [facility] Glucose [Mass/Vol] 98 mg/dL Normal 74-99 [facility] Comment on above: Order Comment: David horton Type: BLOOD SPECIMENOrdering Facility: [facility] Address: [address] [place] [address] Result Comment: The [place] [employer] (ADA) provides guidance for cutoff values for fasting glucose and random glucose. The ADA defines fasting as no caloric intake for at least 8 hours. Fasting plasma glucose results between 100 to 125 mg/dL indicate increased risk for diabetes (prediabetes).Fasting plasma glucose results greater than or equal to 126 mg/dL meet the criteria for diagnosis of diabetes. In the absence of unequivocal hyperglycemia, results should be confirmed by repeat testing. In a patient with classic symptoms of hyperglycemia or hyperglycemic crisis, random plasma glucose results greater than or equal to 200 mg/dL meet the criteria for diagnosis of diabetes.Reference: Standards of Medical Care in Diabetes 2016, [place] [employer]. Diabetes Care. 2016.39(Suppl 1). Performed By: #### 3 040-3, 93876-8 ####[facility] LABORATORYCLIA [id number] [place] [address] [place] Potassium [Moles/Vol] 4.4 mmol/L Normal 3.7-5.1 [facility] Comment on above: Order Comment: David horton Type: BLOOD SPECIMENOrdering Facility: [facility] Address: [address] [place] [address] Performed By: #### 3 , ####[facility] LABORATORYCLIA [id number] [place] [address] [place] Protein [Mass/Vol] 7.4 g/dL Normal 6.3-8.0 [facility] Comment on above: Order Comment: David horton Type: BLOOD SPECIMENOrdering Facility: [facility] Address: [address] [place] [address] Performed By: #### 3 040-, ####[facility] LABORATORYCLIA [id number] [place] [address] [place] Sodium [Moles/Vol] 133 mmol/L Low 136-144 [facility] Comment on above: Order Comment: David horton Type: BLOOD SPECIMENOrdering Facility: [facility] Address: [address] [place] [address] Performed By: #### 3 040-, ####[facility] LABORATORYCLIA [id number] [place] [address] [place] Urea nitrogen [Mass/Vol] 18 mg/dL Normal 7-21 [facility] Comment on above: Order Comment: Speci men Type: BLOOD SPECIMENOrdering Facility: [facility] Address: [address] [place] [address] Performed By: #### 3 040-3, 23575-7 ####[facility] LABORATORYCLIA [id number] [place] [address] [place] Lipase SerPl-cCncon 05-21-19 25 Lipase [Catalytic activity/Vol] 22 U/L Normal 16-61 [facility] Comment on above: Order Comment: Speci men Type: BLOOD SPECIMENOrdering Facility: [facility] Address: [address] [place] [address] Performed By: #### 3 040-3, 93581-8 ####[facility] LABORATORYCLIA [id number] [place] [address] [place] US ABD RIGHT UPPER QUADRANTo n 05-20-2024 US ABD RIGHT UPPER QUADRANT Normal [facility] ALLIED HEALTHon 05-19-[address] [facility] CBC panel Auto (Bld)on 05-19 Erythrocyte distribution width (RBC) [Ratio] 14.2 % Normal 11.5-15.0 [facility] Comment on above: Order Comment: Speci men Type: BLOOD SPECIMENOrdering Facility: [facility] Address: [address] [place] [address] Performed By: #### 5 8410-2 ####[facility] LABORATORYCLIA [id number] [address] [place] Hematocrit (Bld) [Volume fraction] 52.0 % High 36.0-46.0 [facility] Comment on above: Order Comment: Speci men Type: BLOOD SPECIMENOrdering Facility: [facility] Address: [address] [place] [address] Performed By: #### 5 8410-2 ####[facility] LABORATORYCLIA [id number] [place] [address] [place] Hemoglobin (Bld) [Mass/Vol] 16.6 g/dL High 11.5-15.5 [facility] Comment on above: Order Comment: Speci men Type: BLOOD SPECIMENOrdering Facility: [facility] Address: [address] [place] [address] Performed By: #### 5 8410-2 ####[facility] LABORATORYCLIA [id number] [address] [place] MCH (RBC) [Entitic mass] 31.3 pg Normal 26.0-34.0 [facility] Comment on above: Order Comment: Speci men Type: BLOOD SPECIMENOrdering Facility: [facility] Address: [address] [place] [address] Performed By: #### 5 8410-2 ####[facility] LABORATORYCLIA [id number] [address] [place] MCHC (RBC) [Mass/Vol] 31.9 g/dL Normal 30.5-36.0 [facility] Comment on above: Order Comment: Speci men Type: BLOOD SPECIMENOrdering Facility: [facility] Address: [address] [place] [address] Performed By: #### 5 8410-2 ####[facility] LABORATORYCLIA [id number] [address] [facility] MCV (RBC) [Entitic vol] 97.9 fL Normal 80.0-100.0 [facility] Comment on above: Order Comment: Speci men Type: BLOOD SPECIMENOrdering Facility: [facility] Address: [address] [place] [address] Performed By: #### 5 8410-2 ####[facility] LABORATORYCLIA [id number] [address] [place] Nucleated RBC (Bld) [#/Vol] 10*3/uL Normal <0.01 [facility] Comment on above: Order Comment: Speci men Type: BLOOD SPECIMENOrdering Facility: [facility] Address: [address] [place] [address] Performed By: #### 5 8410-2 ####[facility] LABORATORYCLIA [id number] [address] [place] Platelet mean volume (Bld) [Entitic vol] 10.3 fL Normal 9.0-12.7 [facility] Comment on above: Order Comment: Speci men Type: BLOOD SPECIMENOrdering Facility: [facility] Address: [facility] [place] [address] Performed By: #### 5 8410-2 ####[facility] LABORATORYCLIA [id number] [address] Platelets (Bld) [#/Vol] 346 10*3/uL Normal 150-400 [facility] Comment on above: Order Comment: Speci men Type: BLOOD SPECIMENOrdering Facility: [facility] Address: [address] [place] [address] Performed By: #### 5 8410-2 ####[facility] LABORATORYCLIA [id number] [place] [address] [place] RBC (Bld) [#/Vol] 5.31 10*6/uL High 3.90-5.20 [facility] Comment on above: Order Comment: Speci men Type: BLOOD SPECIMENOrdering Facility: [facility] Address: [address] [place] [address] Performed By: #### 5 8410-2 ####[facility] LABORATORYCLIA [id number] [address] [place] WBC (Bld) [#/Vol] 10.65 10*3/uL Normal 3.70-11.00 [facility] Comment on above: Order Comment: Speci men Type: BLOOD SPECIMENOrdering Facility: [facility] Address: [address] [place] [address] Performed By: #### 5 8410-2 ####[facility] LABORATORYCLIA [id number] [address] [place] CONSULTon 05-19-[address] [facility] Comprehensive metabolic 2000 panelon 05-19-2024 Albumin [Mass/Vol] 4.5 g/dL Normal 3.9-4.9 [facility] Comment on above: Order Comment: Speci men Type: BLOOD SPECIMENOrdering Facility: [facility] Address: [address] [place] [address] Performed By: #### 2 4323-8 ####[facility] LABORATORYCLIA [id number] [place] [address] [place] ALP [Catalytic activity/Vol] 277 U/L High 34-123 [facility] Comment on above: Order Comment: Speci men Type: BLOOD SPECIMENOrdering Facility: [facility] Address: [address] [place] [address] Performed By: #### 2 4323-8 ####[facility] LABORATORYCLIA [id number] [place] [address] [place] ALT [Catalytic activity/Vol] 63 U/L High 7-38 [facility] Comment on above: Order Comment: Speci men Type: BLOOD SPECIMENOrdering Facility: [facility] Address: [address] [place] [address] Performed By: #### 2 4323-8 ####[facility] LABORATORYCLIA [id number] [place] [address] [place] Anion gap [Moles/Vol] 11 mmol/L Normal 8-15 [facility] Comment on above: Order Comment: Speci men Type: BLOOD SPECIMENOrdering Facility: [facility] Address: [address] [place] [address] Performed By: #### 2 4323-8 ####[facility] LABORATORYCLIA [id number] [place] [address] [place] AST [Catalytic activity/Vol] 59 U/L High 13-35 [facility] Comment on above: Order Comment: Speci men Type: BLOOD SPECIMENOrdering Facility: [facility] Address: [address] [place] [address] Performed By: #### 2 4323-8 ####[facility] LABORATORYCLIA [id number] [place] [address] [place] Bilirubin [Mass/Vol] 0.5 mg/dL Normal 0.2-1.3 [facility] Comment on above: Order Comment: Speci men Type: BLOOD SPECIMENOrdering Facility: [facility] Address: [address] [place] [address] Performed By: #### 2 4323-8 ####[facility] LABORATORYCLIA [id number] [place] [address] [place] Calcium [Mass/Vol] 10.1 mg/dL Normal 8.5-10.2 [facility] Comment on above: Order Comment: Speci men Type: BLOOD SPECIMENOrdering Facility: [facility] Address: [address] [place] [address] Performed By: #### 2 4323-8 ####[facility] LABORATORYCLIA [id number] [place] [address] [place] Chloride [Moles/Vol] 96 mmol/L Low 98-107 [facility] Comment on above: Order Comment: Speci men Type: BLOOD SPECIMENOrdering Facility: [facility] Address: [address] [place] [address] Performed By: #### 2 4323-8 ####[facility] LABORATORYCLIA [id number] [place] [address] [place] CO2 [Moles/Vol] 30 mmol/L Normal 22-30 [facility] Comment on above: Order Comment: Speci men Type: BLOOD SPECIMENOrdering Facility: [facility] Address: [address] [place] [address] Performed By: #### 2 4323-8 ####[facility] LABORATORYCLIA [id number] [place] [address] [place] Creatinine [Mass/Vol] 1.04 mg/dL High 0.58-0.96 [facility] Comment on above: Order Comment: Speci men Type: BLOOD SPECIMENOrdering Facility: [facility] Address: [address] [place] [address] Performed By: #### 2 4323-8 ####[facility] LABORATORYCLIA [id number] [place] [address] [place] Creatinine and Glomerular filtration rate.predicted panel (S/P/Bld) 68 mL/min/1.73m??? Normal >=60 [facility] Comment on above: Order Comment: Speci men Type: BLOOD SPECIMENOrdering Facility: [facility] Address: [address] [place] [address] Result Comment: Vidal mated Glomerular Filtration Rate [...] Performed By: #### 2 4323-8 ####VENTURA LABORATORYCLIA [id number] [place] [address] [place] Glucose [Mass/Vol] 79 mg/dL Normal 74-99 [facility] Comment on above: Order Comment: David horton Type: BLOOD SPECIMENOrdering Facility: [facility] Address: [address] [place] [address] Result Comment: The [place] [employer] (ADA) provides guidance for cutoff values for fasting glucose and random glucose. The ADA defines fasting as no caloric intake for at least 8 hours. Fasting plasma glucose results between 100 to 125 mg/dL indicate increased risk for diabetes (prediabetes).Fasting plasma glucose results greater than or equal to 126 mg/dL meet the criteria for diagnosis of diabetes. In the absence of unequivocal hyperglycemia, results should be confirmed by repeat testing. In a patient with classic symptoms of hyperglycemia or hyperglycemic crisis, random plasma glucose results greater than or equal to 200 mg/dL meet the criteria for diagnosis of diabetes.Reference: Standards of Medical Care in Diabetes 2016, [place] [employer]. Diabetes Care. 2016.39(Suppl 1). Performed By: #### 2 4323-8 ####VENTURA LABORATORYCLIA [id number] [place] [address] [place] Potassium [Moles/Vol] 4.1 mmol/L Normal 3.7-5.1 [facility] Comment on above: Order Comment: David horton Type: BLOOD SPECIMENOrdering Facility: [facility] Address: [address] [place] [address] Performed By: #### 2 4323-8 ####VENTUR[facility] LABORATORYCLIA [id number] [place] [id number] [place] Protein [Mass/Vol] 8.0 g/dL Normal 6.3-8.0 [facility] Comment on above: Order Comment: David horton Type: BLOOD SPECIMENOrdering Facility: [facility] Address: [address] [place] [address] Performed By: #### 2 4323-8 ####VENT[facility] LABORATORYCLIA [id number] [place] [id number] [place] Sodium [Moles/Vol] 137 mmol/L Normal 136-144 [facility] Comment on above: Order Comment: Speci men Type: BLOOD SPECIMENOrdering Facility: [facility] Address: [address] [place] [address] Performed By: #### 2 4323-8 ####VENTUR[facility] LABORATORYCLIA [id number] [place] [id number] [place] Urea nitrogen [Mass/Vol] 20 mg/dL Normal 7-21 [facility] Comment on above: Order Comment: Speci men Type: BLOOD SPECIMENOrdering Facility: [facility] Address: [address] [place] [address] Performed By: #### 2 4323-8 ####[facility] LABORATORYCLIA [id number] [place] [address] [place] NURSING PROGon 05-19-2024 NURSING PROG [facility] XR CHEST 2V FRONTAL/LATon XR CHEST 2V FRONTAL/LAT Normal M [facility] CASE MANAGEMon 05-18-2024 CASE MANAGEM [facility] CBC panel Auto (Bld)on 05-18 Erythrocyte distribution width (RBC) [Ratio] 14.2 % Normal 11.5-15.0 [facility] Comment on above: Order Comment: Speci men Type: BLOOD SPECIMENOrdering Facility: [facility] Address: [address] [place] [address] Performed By: #### 5 8410-2 ####VENTURA LABORATORYCLIA [id number] [address] [place] Hematocrit (Bld) [Volume fraction] 45.5 % Normal 36.0-46.0 [facility] Comment on above: Order Comment: Speci men Type: BLOOD SPECIMENOrdering Facility: [facility] Address: [address] [place] [address] Performed By: #### 5 8410-2 ####[facility] LABORATORYCLIA [id number] [address] [place] Hemoglobin (Bld) [Mass/Vol] 15.3 g/dL Normal 11.5-15.5 [facility] Comment on above: Order Comment: Speci men Type: BLOOD SPECIMENOrdering Facility: [facility] Address: [address] [place] [address] Performed By: #### 5 8410-2 ####[facility] LABORATORYCLIA [id number] [address] [place] MCH (RBC) [Entitic mass] 32.0 pg Normal 26.0-34.0 [facility] Comment on above: Order Comment: Speci men Type: BLOOD SPECIMENOrdering Facility: [facility] Address: [address] [place] [address] Performed By: #### 5 8410-2 ####[facility] LABORATORYCLIA [id number] [address] [place] MCHC (RBC) [Mass/Vol] 33.6 g/dL Normal 30.5-36.0 [facility] Comment on above: Order Comment: Speci men Type: BLOOD SPECIMENOrdering Facility: [facility] Address: [address] [place] [address] Performed By: #### 5 8410-2 ####[facility] LABORATORYCLIA [id number] [address] MCV (RBC) [Entitic vol] 95.2 fL Normal 80.0-100.0 [facility] Comment on above: Order Comment: Speci men Type: BLOOD SPECIMENOrdering Facility: [facility] Address: [address] [place] [address] Performed By: #### 5 8410-2 ####[facility] LABORATORYCLIA [id number] [address] [place] Nucleated RBC (Bld) [#/Vol] 10*3/uL Normal <0.01 [facility] Comment on above: Order Comment: Speci men Type: BLOOD SPECIMENOrdering Facility: [facility] Address: [address] [place] [address] Performed By: #### 5 8410-2 ####[facility] LABORATORYCLIA [id number] [place] [address] [place] Platelet mean volume (Bld) [Entitic vol] 10.7 fL Normal 9.0-12.7 [facility] Comment on above: Order Comment: Speci men Type: BLOOD SPECIMENOrdering Facility: [facility] Address: [address] [place] [address] Performed By: #### 5 8410-2 ####[facility] LABORATORYCLIA [id number] [place] [address] [place] Platelets (Bld) [#/Vol] 293 10*3/uL Normal 150-400 [facility] Comment on above: Order Comment: Speci men Type: BLOOD SPECIMENOrdering Facility: [facility] Address: [address] [place] [address] Performed By: #### 5 8410-2 ####[facility] LABORATORYCLIA [id number] [address] [place] RBC (Bld) [#/Vol] 4.78 10*6/uL Normal 3.90-5.20 [facility] Comment on above: Order Comment: Speci men Type: BLOOD SPECIMENOrdering Facility: [facility] Address: [address] [place] [address] Performed By: #### 5 8410-2 ####[facility] LABORATORYCLIA [id number] [place] [address] [place] WBC (Bld) [#/Vol] 9.76 10*3/uL Normal 3.70-11.00 [facility] Comment on above: Order Comment: Speci men Type: BLOOD SPECIMENOrdering Facility: [facility] Address: [address] [place] [address] Performed By: #### 5 8410-2 ####[facility] LABORATORYCLIA [id number] [place] [id number] [facility] [place] Comprehensive metabolic 2000 panelon 05-18-2024 Albumin [Mass/Vol] 3.9 g/dL Normal 3.9-4.9 [facility] Comment on above: Order Comment: Speci men Type: BLOOD SPECIMENOrdering Facility: [facility] Address: [address] [place] [address] Performed By: #### 2 4323-8 ####[facility] LABORATORYCLIA [id number] [place] [address] [place] ALP [Catalytic activity/Vol] 249 U/L High 34-123 [facility] Comment on above: Order Comment: Speci men Type: BLOOD SPECIMENOrdering Facility: [facility] Address: [address] [place] [address] Performed By: #### 2 4323-8 ####[facility] LABORATORYCLIA [id number] [place] [address] [place] ALT [Catalytic activity/Vol] 60 U/L High 7-38 [facility] Comment on above: Order Comment: Speci men Type: BLOOD SPECIMENOrdering Facility: [facility] Address: [address] [place] [address] Performed By: #### 2 4323-8 ####[facility] LABORATORYCLIA [id number] [place] [address] [place] Anion gap [Moles/Vol] 12 mmol/L Normal 8-15 [facility] Comment on above: Order Comment: Speci men Type: BLOOD SPECIMENOrdering Facility: [facility] Address: [address] [place] [address] Performed By: #### 2 4323-8 ####[facility] LABORATORYCLIA [id number] [address] AST [Catalytic activity/Vol] 41 U/L High 13-35 [facility] Comment on above: Order Comment: Speci men Type: BLOOD SPECIMENOrdering Facility: [facility] Address: [address] [place] [address] Performed By: #### 2 4323-8 ####[facility] LABORATORYCLIA [id number] [place] [address] [place] Bilirubin [Mass/Vol] 0.5 mg/dL Normal 0.2-1.3 [facility] Comment on above: Order Comment: Speci men Type: BLOOD SPECIMENOrdering Facility: [facility] Address: [address] [place] [address] Performed By: #### 2 4323-8 ####[facility] LABORATORYCLIA [id number] [place] [address] [place] Calcium [Mass/Vol] 9.4 mg/dL Normal 8.5-10.2 [facility] Comment on above: Order Comment: Speci men Type: BLOOD SPECIMENOrdering Facility: [facility] Address: [address] [place] [address] Performed By: #### 2 4323-8 ####[facility] LABORATORYCLIA [id number] [place] [address] [place] Chloride [Moles/Vol] 100 mmol/L Normal 98-107 [facility] Comment on above: Order Comment: Speci men Type: BLOOD SPECIMENOrdering Facility: [facility] Address: [address] [place] [address] Performed By: #### 2 4323-8 ####[facility] LABORATORYCLIA [id number] [place] [address] [place] CO2 [Moles/Vol] 22 mmol/L Normal 22-30 [facility] Comment on above: Order Comment: Speci men Type: BLOOD SPECIMENOrdering Facility: [facility] Address: [address] [place] [address] Performed By: #### 2 4323-8 ####[facility] LABORATORYCLIA [id number] [address] [place] Creatinine [Mass/Vol] 1.00 mg/dL High 0.58-0.96 [facility] Comment on above: Order Comment: Speci men Type: BLOOD SPECIMENOrdering Facility: [facility] Address: [address] [place] [address] Performed By: #### 2 4323-8 ####[facility] LABORATORYCLIA [id number] [address] Creatinine and Glomerular filtration rate.predicted panel (S/P/Bld) 71 mL/min/1.73m??? Normal >=60 [facility] Comment on above: Order Comment: Speci men Type: BLOOD SPECIMENOrdering Facility: [facility] Address: [address] [place] [address] Result Comment: Vidal mated Glomerular Filtration Rate [...] actual GFR. Performed By: #### 2 4323-8 ####[facility] LABORATORYCLIA [id number] [place] [address] [place] Glucose [Mass/Vol] 87 mg/dL Normal 74-99 [facility] Comment on above: Order Comment: [place] Type: BLOOD SPECIMENOrdering Facility: [facility] Address: [address] [place] [address] Result Comment: The [place] [employer] (ADA) provides guidance for cutoff values for fasting glucose and random glucose. The ADA defines fasting as no caloric intake for at least 8 hours. Fasting plasma glucose results between 100 to 125 mg/dL indicate increased risk for diabetes (prediabetes).Fasting plasma glucose results greater than or equal to 126 mg/dL meet the criteria for diagnosis of diabetes. In the absence of unequivocal hyperglycemia, results should be confirmed by repeat testing. In a patient with classic symptoms of hyperglycemia or hyperglycemic crisis, random plasma glucose results greater than or equal to 200 mg/dL meet the criteria for diagnosis of diabetes.Reference: Standards of Medical Care in Diabetes 2016, [place] [employer]. Diabetes Care. 2016.39(Suppl 1). Performed By: #### 2 4323-8 ####[facility] LABORATORYCLIA [id number] [place] [id number] [place] Potassium [Moles/Vol] 4.7 mmol/L Normal 3.7-5.1 [facility] Comment on above: Order Comment: David horton Type: BLOOD SPECIMENOrdering Facility: [facility] Address: [address] [place] [id number] Performed By: #### 2 4323-8 ####[facility] LABORATORYCLIA [id number] [place] [address] [place] Protein [Mass/Vol] 6.9 g/dL Normal 6.3-8.0 [facility] Comment on above: Order Comment: Speci men Type: BLOOD SPECIMENOrdering Facility: [facility] Address: [address] [place] [address] Performed By: #### 2 4323-8 ####[facility] LABORATORYCLIA [id number] [address] [place] Sodium [Moles/Vol] 134 mmol/L Low 136-144 [facility] Comment on above: Order Comment: Speci men Type: BLOOD SPECIMENOrdering Facility: [facility] Address: [address] [place] [address] Performed By: #### 2 4323-8 ####[facility] LABORATORYCLIA [id number] [address] Urea nitrogen [Mass/Vol] 17 mg/dL Normal 7-21 [facility] Comment on above: Order Comment: Speci men Type: BLOOD SPECIMENOrdering Facility: [facility] Address: [address] [place] [address] Performed By: #### 2 4323-8 ####[facility] LABORATORYCLIA [id number] [address] CBC panel Auto (Bld)on 05-17 Erythrocyte distribution width (RBC) [Ratio] 14.3 % Normal 11.5-15.0 [facility] Comment on above: Order Comment: Speci men Type: BLOOD SPECIMENOrdering Facility: [facility] Address: [address] [place] [address] Performed By: #### 5 8410-2 ####[facility] LABORATORYCLIA [id number] [address] Hematocrit (Bld) [Volume fraction] 42.1 % Normal 36.0-46.0 [facility] Comment on above: Order Comment: Speci men Type: BLOOD SPECIMENOrdering Facility: [facility] Address: [address] [place] [address] Performed By: #### 5 8410-2 ####[facility] LABORATORYCLIA [id number] [address] [place] Hemoglobin (Bld) [Mass/Vol] 13.7 g/dL Normal 11.5-15.5 [facility] Comment on above: Order Comment: Speci men Type: BLOOD SPECIMENOrdering Facility: [facility] Address: [address] [place] [address] Performed By: #### 5 8410-2 ####[facility] LABORATORYCLIA [id number] [address] MCH (RBC) [Entitic mass] 31.7 pg Normal 26.0-34.0 [facility] Comment on above: Order Comment: Speci men Type: BLOOD SPECIMENOrdering Facility: [facility] Address: [address] [place] [address] Performed By: #### 5 8410-2 ####[facility] LABORATORYCLIA [id number] [address] MCHC (RBC) [Mass/Vol] 32.5 g/dL Normal 30.5-36.0 [facility] Comment on above: Order Comment: Speci men Type: BLOOD SPECIMENOrdering Facility: [facility] Address: [address] [place] [address] Performed By: #### 5 8410-2 ####[facility] LABORATORYCLIA [id number] [address] MCV (RBC) [Entitic vol] 97.5 fL Normal 80.0-100.0 [facility] Comment on above: Order Comment: Speci men Type: BLOOD SPECIMENOrdering Facility: [facility] Address: [address] [place] [address] Performed By: #### 5 8410-2 ####[facility] LABORATORYCLIA [id number] [address] Nucleated RBC (Bld) [#/Vol] 10*3/uL Normal <0.01 [facility] Comment on above: Order Comment: Speci men Type: BLOOD SPECIMENOrdering Facility: [facility] Address: [address] [place] [address] Performed By: #### 5 8410-2 ####[facility] LABORATORYCLIA [id number] [place] [address] [place] Platelet mean volume (Bld) [Entitic vol] 10.5 fL Normal 9.0-12.7 [facility] Comment on above: Order Comment: Speci men Type: BLOOD SPECIMENOrdering Facility: [facility] Address: [address] [place] [address] Performed By: #### 5 8410-2 ####[facility] LABORATORYCLIA [id number] [place] [address] [place] Platelets (Bld) [#/Vol] 265 10*3/uL Normal 150-400 [facility] Comment on above: Order Comment: Speci men Type: BLOOD SPECIMENOrdering Facility: [facility] Address: [address] [place] [address] Performed By: #### 5 8410-2 ####[facility] LABORATORYCLIA [id number] [place] [address] [place] RBC (Bld) [#/Vol] 4.32 10*6/uL Normal 3.90-5.20 [facility] Comment on above: Order Comment: Speci men Type: BLOOD SPECIMENOrdering Facility: [facility] Address: [address] [place] [address] Performed By: #### 5 8410-2 ####[facility] LABORATORYCLIA [id number] [address] [place] WBC (Bld) [#/Vol] 9.33 10*3/uL Normal 3.70-11.00 [facility] Comment on above: Order Comment: Speci men Type: BLOOD SPECIMENOrdering Facility: [facility] Address: [address] [place] [address] Performed By: #### 5 8410-2 ####[facility] LABORATORYCLIA [id number] [place] [id number] [place] CONSULTon 05-17-[address] [facility] CONSULT PROGon 05-17-2024 CONSULT PROG [facility] Comprehensive metabolic 2000 panelon 05-17-2024 Albumin [Mass/Vol] 4.0 g/dL Normal 3.9-4.9 [facility] Comment on above: Order Comment: Speci men Type: BLOOD SPECIMENOrdering Facility: [facility] Address: [address] [place] [address] Performed By: #### 2 4323-8 ####[facility] LABORATORYCLIA [id number] [address] [place] ALP [Catalytic activity/Vol] 249 U/L High 34-123 [facility] Comment on above: Order Comment: Speci men Type: BLOOD SPECIMENOrdering Facility: [facility] Address: [address] [place] [address] Performed By: #### 2 4323-8 ####[facility] LABORATORYCLIA [id number] [address] [place] ALT [Catalytic activity/Vol] 58 U/L High 7-38 [facility] Comment on above: Order Comment: Speci men Type: BLOOD SPECIMENOrdering Facility: [facility] Address: [address] [place] [address] Performed By: #### 2 4323-8 ####[facility] LABORATORYCLIA [id number] [place] [address] [place] Anion gap [Moles/Vol] 10 mmol/L Normal 8-15 [facility] Comment on above: Order Comment: Speci men Type: BLOOD SPECIMENOrdering Facility: [facility] Address: [address] [place] [address] Performed By: #### 2 4323-8 ####[facility] LABORATORYCLIA [id number] [address] [place] AST [Catalytic activity/Vol] 47 U/L High 13-35 [facility] Comment on above: Order Comment: Speci men Type: BLOOD SPECIMENOrdering Facility: [facility] Address: [address] [place] [address] Performed By: #### 2 4323-8 ####[facility] LABORATORYCLIA [id number] [place] [address] [place] Bilirubin [Mass/Vol] 0.6 mg/dL Normal 0.2-1.3 [facility] Comment on above: Order Comment: Speci men Type: BLOOD SPECIMENOrdering Facility: [facility] Address: [address] [place] [address] Performed By: #### 2 4323-8 ####[facility] LABORATORYCLIA [id number] [place] [address] [place] Calcium [Mass/Vol] 9.1 mg/dL Normal 8.5-10.2 [facility] Comment on above: Order Comment: Speci men Type: BLOOD SPECIMENOrdering Facility: [facility] Address: [address] [place] [address] Performed By: #### 2 4323-8 ####[facility] LABORATORYCLIA [id number] [place] [address] [place] Chloride [Moles/Vol] 99 mmol/L Normal 98-107 [facility] Comment on above: Order Comment: Speci men Type: BLOOD SPECIMENOrdering Facility: [facility] Address: [address] [place] [address] Performed By: #### 2 4323-8 ####[facility] LABORATORYCLIA [id number] [place] [address] [place] CO2 [Moles/Vol] 25 mmol/L Normal 22-30 [facility] Comment on above: Order Comment: Speci men Type: BLOOD SPECIMENOrdering Facility: [facility] Address: [address] [place] [address] Performed By: #### 2 4323-8 ####[facility] LABORATORYCLIA [id number] [place] [address] [place] Creatinine [Mass/Vol] 0.87 mg/dL Normal 0.58-0.96 [facility] Comment on above: Order Comment: Speci men Type: BLOOD SPECIMENOrdering Facility: [facility] Address: [address] [place] [address] Performed By: #### 2 4323-8 ####[facility] LABORATORYCLIA [id number] [place] [address] [place] [facility] [place] Creatinine and Glomerular filtration rate.predicted panel (S/P/Bld) 84 mL/min/1.73m??? Normal >=60 [facility] Comment on above: Order Comment: David horton Type: BLOOD SPECIMENOrdering Facility: [facility] Address: [address] [place] [address] Result Comment: Vidal mated Glomerular Filtration Rate [...] actual GFR. Performed By: #### 2 4323-8 ####[facility] LABORATORYCLIA [id number] [place] [address] [place] Glucose [Mass/Vol] 97 mg/dL Normal 74-99 [facility] Comment on above: Order Comment: David horton Type: BLOOD SPECIMENOrdering Facility: [facility] Address: [address] [place] [address] Result Comment: The [place] [employer] (ADA) provides guidance for cutoff values for fasting glucose and random glucose. The ADA defines fasting as no caloric intake for at least 8 hours. Fasting plasma glucose results between 100 to 125 mg/dL indicate increased risk for diabetes (prediabetes).Fasting plasma glucose results greater than or equal to 126 mg/dL meet the criteria for diagnosis of diabetes. In the absence of unequivocal hyperglycemia, results should be confirmed by repeat testing. In a patient with classic symptoms of hyperglycemia or hyperglycemic crisis, random plasma glucose results greater than or equal to 200 mg/dL meet the criteria for diagnosis of diabetes.Reference: Standards of Medical Care in Diabetes 2016, [place] [employer]. Diabetes Care. 2016.39(Suppl 1). Performed By: #### 2 4323-8 ####[facility] LABORATORYCLIA [id number] [place] [id number] [place] Potassium [Moles/Vol] 4.6 mmol/L Normal 3.7-5.1 [facility] Comment on above: Order Comment: [place] horton Type: BLOOD SPECIMENOrdering Facility: [facility] Address: [address] [place] [id number] Performed By: #### 2 4323-8 ####[facility] LABORATORYCLIA [id number] [address] [place] Protein [Mass/Vol] 6.7 g/dL Normal 6.3-8.0 [facility] Comment on above: Order Comment: Speci men Type: BLOOD SPECIMENOrdering Facility: [facility] Address: [address] [place] [address] Performed By: #### 2 4323-8 ####[facility] LABORATORYCLIA [id number] [place] [address] [place] Sodium [Moles/Vol] 134 mmol/L Low 136-144 [facility] Comment on above: Order Comment: Speci men Type: BLOOD SPECIMENOrdering Facility: [facility] Address: [address] [place] [address] Performed By: #### 2 4323-8 ####[facility] LABORATORYCLIA [id number] [address] STATES OF [facility] Urea nitrogen [Mass/Vol] 12 mg/dL Normal 7-21 [facility] Comment on above: Order Comment: Speci men Type: BLOOD SPECIMENOrdering Facility: [facility] Address: [address] [place] [address] Performed By: #### 2 4323-8 ####[facility] LABORATORYCLIA [id number] [address] [place] Vancomycin [place] SerPl-mCncon 05-17-2024 Vancomycin random [Mass/Vol] 14.7 ug/mL Normal 10.0-20.0 [facility] Comment on above: Order Comment: Speci men Type: BLOOD SPECIMENOrdering Facility: [facility] Address: [address] [place] [address] Result Comment: Refe rence ranges and high/low indicator flags are provided as general guidelines only. The treating physician must determine appropriate target levels/dosing based on the specific clinical situation. Performed By: #### 4 091-5 ####[facility] LABORATORYCLIA [id number] [place] [address] [place] CASE MGT INIT ASSESon 2024 CASE MGT INIT ASSES [facility] CBC panel Auto (Bld)on 05-16 Erythrocyte distribution width (RBC) [Ratio] 14.5 % Normal 11.5-15.0 [facility] Comment on above: Order Comment: Speci men Type: BLOOD SPECIMENOrdering Facility: [facility] Address: [address] [place] [address] Performed By: #### 5 8410-2 ####[facility] LABORATORYCLIA [id number] [address] [place] Hematocrit (Bld) [Volume fraction] 37.8 % Normal 36.0-46.0 [facility] Comment on above: Order Comment: Speci men Type: BLOOD SPECIMENOrdering Facility: [facility] Address: [address] [place] [address] Performed By: #### 5 8410-2 ####[facility] LABORATORYCLIA [id number] [address] [place] Hemoglobin (Bld) [Mass/Vol] 12.6 g/dL Normal 11.5-15.5 [facility] Comment on above: Order Comment: Speci men Type: BLOOD SPECIMENOrdering Facility: [facility] Address: [address] [place] [address] Performed By: #### 5 8410-2 ####[facility] LABORATORYCLIA [id number] [address] [place] MCH (RBC) [Entitic mass] 32.2 pg Normal 26.0-34.0 [facility] Comment on above: Order Comment: Speci men Type: BLOOD SPECIMENOrdering Facility: [facility] Address: [address] [place] [address] Performed By: #### 5 8410-2 ####[facility] LABORATORYCLIA [id number] [address] [place] MCHC (RBC) [Mass/Vol] 33.3 g/dL Normal 30.5-36.0 [facility] Comment on above: Order Comment: Speci men Type: BLOOD SPECIMENOrdering Facility: [facility] Address: [address] [place] [address] Performed By: #### 5 8410-2 ####[facility] LABORATORYCLIA [id number] [place] [address] [place] MCV (RBC) [Entitic vol] 96.7 fL Normal 80.0-100.0 [facility] Comment on above: Order Comment: Speci men Type: BLOOD SPECIMENOrdering Facility: [facility] Address: [address] [place] [address] Performed By: #### 5 8410-2 ####[facility] LABORATORYCLIA [id number] [place] [address] [place] Nucleated RBC (Bld) [#/Vol] 10*3/uL Normal <0.01 [facility] Comment on above: Order Comment: Speci men Type: BLOOD SPECIMENOrdering Facility: [facility] Address: [address] [place] [address] Performed By: #### 5 8410-2 ####[facility] LABORATORYCLIA [id number] [place] [address] [place] Platelet mean volume (Bld) [Entitic vol] 10.5 fL Normal 9.0-12.7 [facility] Comment on above: Order Comment: Speci men Type: BLOOD SPECIMENOrdering Facility: [facility] Address: [address] [place] [address] Performed By: #### 5 8410-2 ####[facility] LABORATORYCLIA [id number] [place] [address] [place] Platelets (Bld) [#/Vol] 234 10*3/uL Normal 150-400 [facility] Comment on above: Order Comment: Speci men Type: BLOOD SPECIMENOrdering Facility: [facility] Address: [address] [place] [address] Performed By: #### 5 8410-2 ####[facility] LABORATORYCLIA [id number] [place] [address] [place] RBC (Bld) [#/Vol] 3.91 10*6/uL Normal 3.90-5.20 [facility] Comment on above: Order Comment: Speci men Type: BLOOD SPECIMENOrdering Facility: [facility] Address: [address] [place] [address] Performed By: #### 5 8410-2 ####[facility] LABORATORYCLIA [id number] [place] [address] [place] WBC (Bld) [#/Vol] 6.77 10*3/uL Normal 3.70-11.00 [facility] Comment on above: Order Comment: Speci men Type: BLOOD SPECIMENOrdering Facility: [facility] Address: [address] [place] [address] Performed By: #### 5 8410-2 ####[facility] LABORATORYCLIA [id number] [address] OF [facility] CONSULT PROGon 05-16-[address] [facility] Comprehensive metabolic 2000 panelon 05-16-2024 Albumin [Mass/Vol] 3.6 g/dL Low 3.9-4.9 [facility] Comment on above: Order Comment: Speci men Type: BLOOD SPECIMENOrdering Facility: [facility] Address: [address] [place] [address] Performed By: #### H STNT, 06504-8 ####[facility] LABORATORYCLIA [id number] [address] OF [place] ALP [Catalytic activity/Vol] 212 U/L High 34-123 [facility] Comment on above: Order Comment: Speci men Type: BLOOD SPECIMENOrdering Facility: [facility] Address: [address] [place] [address] Performed By: #### H STNT, 50094-8 ####[facility] LABORATORYCLIA [id number] [address] ALT [Catalytic activity/Vol] 49 U/L High 7-38 [facility] Comment on above: Order Comment: Speci men Type: BLOOD SPECIMENOrdering Facility: [facility] Address: [address] [place] [address] Performed By: #### H STNT, 88699-5 ####[facility] LABORATORYCLIA [id number] [address] [place] Anion gap [Moles/Vol] 10 mmol/L Normal 8-15 [facility] Comment on above: Order Comment: Speci men Type: BLOOD SPECIMENOrdering Facility: [facility] Address: [address] [place] [address] Performed By: #### H STNT, 03342-3 ####[facility] LABORATORYCLIA [id number] [place] [address] [place] AST [Catalytic activity/Vol] 57 U/L High 13-35 [facility] Comment on above: Order Comment: Speci men Type: BLOOD SPECIMENOrdering Facility: [facility] Address: [address] [place] [address] Performed By: #### H STNT, 44071-6 ####[facility] LABORATORYCLIA [id number] [place] [address] [place] Bilirubin [Mass/Vol] 0.7 mg/dL Normal 0.2-1.3 [facility] Comment on above: Order Comment: Speci men Type: BLOOD SPECIMENOrdering Facility: [facility] Address: [address] [place] [address] Performed By: #### H STNT, 99774-0 ####[facility] LABORATORYCLIA [id number] [place] [address] [place] Calcium [Mass/Vol] 8.9 mg/dL Normal 8.5-10.2 [facility] Comment on above: Order Comment: Speci men Type: BLOOD SPECIMENOrdering Facility: [facility] Address: [address] [place] [address] Performed By: #### H STNT, 56884-2 ####[facility] LABORATORYCLIA [id number] [place] [address] [place] Chloride [Moles/Vol] 105 mmol/L Normal 98-107 [facility] Comment on above: Order Comment: Speci men Type: BLOOD SPECIMENOrdering Facility: [facility] Address: [address] [place] [address] Performed By: #### H STNT, 73837-8 ####[facility] LABORATORYCLIA [id number] [place] [address] [place] CO2 [Moles/Vol] 22 mmol/L Normal 22-30 [facility] Comment on above: Order Comment: Speci men Type: BLOOD SPECIMENOrdering Facility: [facility] Address: [address] [place] [address] Performed By: #### H STNT, 02858-6 ####[facility] LABORATORYCLIA [id number] [place] [address] [place] Creatinine [Mass/Vol] 0.82 mg/dL Normal 0.58-0.96 [facility] Comment on above: Order Comment: David sol Type: BLOOD SPECIMENOrdering Facility: [facility] Address: [address] [place] [address] Performed By: #### H STNT, 61885-8 ####[facility] LABORATORYCLIA [id number] [address] Creatinine and Glomerular filtration rate.predicted panel (S/P/Bld) 91 mL/min/1.73m??? Normal >=60 [facility] Comment on above: Order Comment: David sol Type: BLOOD SPECIMENOrdering Facility: [facility] Address: [address] [place] [address] Result Comment: Vidal mated Glomerular Filtration Rate [...] reflect actual GFR. Performed By: #### H STNT, 65353-3 ####[facility] LABORATORYCLIA [id number] [place] [address] [place] Glucose [Mass/Vol] 79 mg/dL Normal 74-99 [facility] Comment on above: Order Comment: David horton Type: BLOOD SPECIMENOrdering Facility: [facility] Address: [address] [place] [address] Result Comment: The [place] Diabetes [employer] (ADA) provides guidance for cutoff values for fasting glucose and random glucose. The ADA defines fasting as no caloric intake for at least 8 hours. Fasting plasma glucose results between 100 to 125 mg/dL indicate increased risk for diabetes (prediabetes).Fasting plasma glucose results greater than or equal to 126 mg/dL meet the criteria for diagnosis of diabetes. In the absence of unequivocal hyperglycemia, results should be confirmed by repeat testing. In a patient with classic symptoms of hyperglycemia or hyperglycemic crisis, random plasma glucose results greater than or equal to 200 mg/dL meet the criteria for diagnosis of diabetes.Reference: Standards of Medical Care in Diabetes 2016, [place] [employer]. Diabetes Care. 2016.39(Suppl 1). Performed By: #### H STNT, 39147-9 ####[facility] LABORATORYCLIA [id number] [place] [address] [place] Potassium [Moles/Vol] 4.4 mmol/L Normal 3.7-5.1 [facility] Comment on above: Order Comment: Speci men Type: BLOOD SPECIMENOrdering Facility: [facility] Address: [address] [place] [address] Performed By: #### H STNT, 74604-7 ####[facility] LABORATORYCLIA [id number] [place] [address] [place] Protein [Mass/Vol] 6.0 g/dL Low 6.3-8.0 [facility] Comment on above: Order Comment: Speci men Type: BLOOD SPECIMENOrdering Facility: [facility] Address: [address] [place] [address] Performed By: #### H STNT, 65190-7 ####[facility] LABORATORYCLIA [id number] [place] [address] [place] Sodium [Moles/Vol] 137 mmol/L Normal 136-144 [facility] Comment on above: Order Comment: Speci men Type: BLOOD SPECIMENOrdering Facility: [facility] Address: [address] [place] [address] Performed By: #### H STNT, 32333-6 ####[facility] LABORATORYCLIA [id number] [place] [address] [place] Urea nitrogen [Mass/Vol] 12 mg/dL Normal 7-21 [facility] Comment on above: Order Comment: Speci men Type: BLOOD SPECIMENOrdering Facility: [facility] Address: [address] [place] [address] Performed By: #### H STNT, 92637-3 ####[facility] LABORATORYCLIA [id number] [place] [address] [facility] HIGH SENSITIVITY TROPONIN To n 05-16-2024 Troponin T.cardiac High sensitivity method [Mass/Vol] 25 ng/L High <12 [facility] Comment on above: Order Comment: Speci men Type: BLOOD SPECIMENOrdering Facility: [facility] Address: [address] [place] [address] Performed By: #### H STNT, 32022-1 ####[facility] LABORATORYCLIA [id number] [place] [address] [facility] ALLIED HEALTHon 05-15-[address] [facility] ALLIED HEALTH HNO ID: [id number] Author: DOMINGUEZ BEGUM RT(R) Service: Radiology Author Type: Technologist Type: Allied Health Filed: 05/15/2024 11:22 Note Text: MEDIC @ BS GETTING LABS, IMAGING ORDER OUTSTANDING Normal [facility] Bacteria Bld Culton 05-16-19 25 Bacteria identified Cx Nom (Bld) CULTURE, BLOOD: No growth 5 days GRAM STAIN: This blood culture had less than the recommended 8 ml per bottle, which could decrease the sensitivity of the test. Normal [facility] Comment on above: Performed By: #### 6 00-7 ####[facility] LABCLIA [id number] [address] Bacteria identified Cx Nom (Bld) CULTURE, BLOOD: No growth 5 days GRAM STAIN: This blood culture had less than the recommended 8 ml per bottle, which could decrease the sensitivity of the test. Normal [facility] Comment on above: Performed By: #### 6 00-7 ####[facility] LABCLIA [id number] [address] Bacteria Wnd Culton 05-16-19 25 Bacteria identified Cx Nom (Wound) CULTURE, WOUND: No growth GRAM STAIN: Rare Gram positive cocci Many Polymorphonuclear leukocytes Abnormal [facility] Comment on above: Performed By: #### 6 462-6 ####[facility] LABCLIA [id number] [place] [address] [place] CBC W Auto Differential pane l (Bld)on 05-15-2024 Basophils (Bld) [#/Vol] 0.08 10*3/uL Normal <0.11 [facility] Comment on above: Order Comment: Speci men Type: BLOOD SPECIMENOrdering Facility: [facility] Address: [address] [place] [address] Performed By: #### 5 7021-8 ####[facility] LABORATORYCLIA [id number] [place] [address] [place] Basophils/100 WBC (Bld) 0.9 % Normal [facility] Comment on above: Order Comment: Speci men Type: BLOOD SPECIMENOrdering Facility: [facility] Address: [address] [place] [address] Performed By: #### 5 7021-8 ####[facility] LABORATORYCLIA [id number] [place] [address] [place] Differential cell count method Nom (Bld) Auto Normal [facility] Comment on above: Order Comment: Speci men Type: BLOOD SPECIMENOrdering Facility: [facility] Address: [address] [place] [address] Performed By: #### 5 7021-8 ####[facility] LABORATORYCLIA [id number] [place] [address] [place] Eosinophils (Bld) [#/Vol] 0.10 10*3/uL Normal <0.46 [facility] Comment on above: Order Comment: Speci men Type: BLOOD SPECIMENOrdering Facility: [facility] Address: [address] [place] [address] Performed By: #### 5 7021-8 ####[facility] LABORATORYCLIA [id number] [place] [address] [place] Eosinophils/100 WBC (Bld) 1.1 % Normal [facility] Comment on above: Order Comment: Speci men Type: BLOOD SPECIMENOrdering Facility: [facility] Address: [address] [place] [address] Performed By: #### 5 7021-8 ####[facility] LABORATORYCLIA [id number] [address] [place] Erythrocyte distribution width (RBC) [Ratio] 14.4 % Normal 11.5-15.0 [facility] Comment on above: Order Comment: Speci men Type: BLOOD SPECIMENOrdering Facility: [facility] Address: [address] [place] [address] Performed By: #### 5 7021-8 ####[facility] LABORATORYCLIA [id number] [place] [address] [place] [facility] [place] Hematocrit (Bld) [Volume fraction] 44.8 % Normal 36.0-46.0 [facility] Comment on above: Order Comment: Speci men Type: BLOOD SPECIMENOrdering Facility: [facility] Address: [address] [place] [address] Performed By: #### 5 7021-8 ####[facility]ORATORYCLIA [id number] [address] [place] Hemoglobin (Bld) [Mass/Vol] 14.5 g/dL Normal 11.5-15.5 [facility] Comment on above: Order Comment: Speci men Type: BLOOD SPECIMENOrdering Facility: [facility] Address: [address] [place] [address] Performed By: #### 5 7021-8 ####[facility] LABORATORYCLIA [id number] [address] [place] Immature granulocytes (Bld) [#/Vol] 0.04 10*3/uL Normal <0.10 [facility] Comment on above: Order Comment: Speci men Type: BLOOD SPECIMENOrdering Facility: [facility] Address: [address] [place] [address] Performed By: #### 5 7021-8 ####[facility] LABORATORYCLIA [id number] [address] Immature granulocytes/100 WBC (Bld) 0.4 % Normal [facility] Comment on above: Order Comment: Speci men Type: BLOOD SPECIMENOrdering Facility: [facility] Address: [address] [place] [address] Performed By: #### 5 7021-8 ####[facility] LABORATORYCLIA [id number] [address] [place] Lymphocytes (Bld) [#/Vol] 0.94 10*3/uL Low 1.00-4.00 [facility] Comment on above: Order Comment: Speci men Type: BLOOD SPECIMENOrdering Facility: [facility] Address: [address] [place] [address] Performed By: #### 5 7021-8 ####[facility] LABORATORYCLIA [id number] [address] Lymphocytes/100 WBC (Bld) 10.1 % Normal [facility] Comment on above: Order Comment: Speci men Type: BLOOD SPECIMENOrdering Facility: [facility] Address: [address] [place] [address] Performed By: #### 5 7021-8 ####[facility] LABORATORYCLIA [id number] [address] [place] [facility] MCH (RBC) [Entitic mass] 31.4 pg Normal 26.0-34.0 [facility] Comment on above: Order Comment: Speci men Type: BLOOD SPECIMENOrdering Facility: [facility] Address: [address] [place] [address] Performed By: #### 5 7021-8 ####[facility] LABORATORYCLIA [id number] [address] MCHC (RBC) [Mass/Vol] 32.4 g/dL Normal 30.5-36.0 [facility] Comment on above: Order Comment: Speci men Type: BLOOD SPECIMENOrdering Facility: [facility] Address: [address] [place] [address] Performed By: #### 5 7021-8 ####[facility] LABORATORYCLIA [id number] [address] MCV (RBC) [Entitic vol] 97.0 fL Normal 80.0-100.0 M [facility] Comment on above: Order Comment: Speci men Type: BLOOD SPECIMENOrdering Facility: [facility] Address: [address] [place] [address] Performed By: #### 5 7021-8 ####[facility] LABORATORYCLIA [id number] [place] [address] [place] Monocytes (Bld) [#/Vol] 0.49 10*3/uL Normal <0.87 [facility] Comment on above: Order Comment: Speci men Type: BLOOD SPECIMENOrdering Facility: [facility] Address: [address] [place] [address] Performed By: #### 5 7021-8 ####[facility] LABORATORYCLIA [id number] [place] [address] [place] Monocytes/100 WBC (Bld) 5.3 % Normal [facility] Comment on above: Order Comment: Speci men Type: BLOOD SPECIMENOrdering Facility: [facility] Address: [address] [place] [address] Performed By: #### 5 7021-8 ####[facility] LABORATORYCLIA [id number] [place] [address] [place] Neutrophils (Bld) [#/Vol] 7.65 10*3/uL High 1.45-7.50 [facility] Comment on above: Order Comment: Speci men Type: BLOOD SPECIMENOrdering Facility: [facility] Address: [address] [place] [address] Performed By: #### 5 7021-8 ####[facility] LABORATORYCLIA [id number] [place] [address] [place] Neutrophils/100 WBC (Bld) 82.2 % Normal [facility] Comment on above: Order Comment: Speci men Type: BLOOD SPECIMENOrdering Facility: [facility] Address: [address] [place] [address] Performed By: #### 5 7021-8 ####[facility] LABORATORYCLIA [id number] [place] [address] [place] Nucleated RBC (Bld) [#/Vol] 10*3/uL Normal <0.01 [facility] Comment on above: Order Comment: Speci men Type: BLOOD SPECIMENOrdering Facility: [facility] Address: [address] [place] [address] Performed By: #### 5 7021-8 ####[facility] LABORATORYCLIA [id number] [place] [address] [place] Nucleated RBC/100 WBC (Bld) [Ratio] 0.0 /[address] [facility] Comment on above: Order Comment: Speci men Type: BLOOD SPECIMENOrdering Facility: [facility] Address: [address] [place] [address] Performed By: #### 5 7021-8 ####[facility] LABORATORYCLIA [id number] [place] [address] [place] Platelet mean volume (Bld) [Entitic vol] 10.2 fL Normal 9.0-12.7 [facility] Comment on above: Order Comment: Speci men Type: BLOOD SPECIMENOrdering Facility: [facility] Address: [address] [place] [address] Performed By: #### 5 7021-8 ####[facility] LABORATORYCLIA [id number] [place] [address] [place] Platelets (Bld) [#/Vol] 278 10*3/uL Normal 150-400 [facility] Comment on above: Order Comment: Speci men Type: BLOOD SPECIMENOrdering Facility: [facility] Address: [address] [place] [address] Performed By: #### 5 7021-8 ####[facility] LABORATORYCLIA [id number] [place] [address] [place] RBC (Bld) [#/Vol] 4.62 10*6/uL Normal 3.90-5.20 [facility] Comment on above: Order Comment: Speci men Type: BLOOD SPECIMENOrdering Facility: [facility] Address: [address] [place] [address] Performed By: #### 5 7021-8 ####[facility] LABORATORYCLIA [id number] [place] [address] [place] WBC (Bld) [#/Vol] 9.30 10*3/uL Normal 3.70-11.00 [facility] Comment on above: Order Comment: Speci men Type: BLOOD SPECIMENOrdering Facility: [facility] Address: [address] [place] [address] Performed By: #### 5 7021-8 ####[facility] LABORATORYCLIA [id number] [place] [address] [place] CONSULT PROGon 05-15-[address] [facility] CHEST W IVCONon CT CHEST W IVCON Normal [facility] Comprehensive metabolic 2000 panelon 05-15-2024 Albumin [Mass/Vol] 4.5 g/dL Normal 3.9-4.9 [facility] Comment on above: Order Comment: Speci men Type: BLOOD SPECIMENOrdering Facility: [facility] Address: [address] [place] [address] Performed By: #### 3 3762-6, [id number], 32273-3 ####[facility] LABORATORYCLIA [id number] [place] [address] [place] ALP [Catalytic activity/Vol] 127 U/L High 34-123 [facility] Comment on above: Order Comment: Speci men Type: BLOOD SPECIMENOrdering Facility: [facility] Address: [address] [place] [address] Performed By: #### 3 3762-6, [id number], 82157-9 ####[facility] LABORATORYCLIA [id number] [place] [address] [place] ALT [Catalytic activity/Vol] 22 U/L Normal 7-38 [facility] Comment on above: Order Comment: Speci men Type: BLOOD SPECIMENOrdering Facility: [facility] Address: [address] [place] [address] Performed By: #### 3 3762-6, [id number], 25612-4 ####[facility] LABORATORYCLIA [id number] [place] [id number] [place] Anion gap [Moles/Vol] 8 mmol/L Normal 8-15 [facility] Comment on above: Order Comment: Speci men Type: BLOOD SPECIMENOrdering Facility: [facility] Address: [address] [place], [place] [address], [place] [address] Performed By: #### 3 3762-6, [id number], ####[facility] LABORATORYCLIA [id number] [place] [address] [place] AST [Catalytic activity/Vol] 23 U/L Normal 13-35 [facility] Comment on above: Order Comment: Speci men Type: BLOOD SPECIMENOrdering Facility: [facility] Address: [address] [place] [address] Performed By: #### 3 3762-6, [id number], ####[facility] LABORATORYCLIA [id number] [place] [address] [place] Bilirubin [Mass/Vol] 0.9 mg/dL Normal 0.2-1.3 [facility] Comment on above: Order Comment: Speci men Type: BLOOD SPECIMENOrdering Facility: [facility] Address: [address] [place] [address] Performed By: #### 3 3762-6, [id number], ####[facility] LABORATORYCLIA [id number] [place] [address] [place] Calcium [Mass/Vol] 9.4 mg/dL Normal 8.5-10.2 [facility] Comment on above: Order Comment: Speci men Type: BLOOD SPECIMENOrdering Facility: [facility] Address: [address] [place] [address] Performed By: #### 3 3762-6, [id number], ####[facility] LABORATORYCLIA [id number] [place] [address] [place] Chloride [Moles/Vol] 104 mmol/L Normal 98-107 [facility] Comment on above: Order Comment: Speci men Type: BLOOD SPECIMENOrdering Facility: [facility] Address: [address] [place] [address] Performed By: #### 3 3762-6, [id number], 91855-3 ####[facility] LABORATORYCLIA [id number] [place] [address] [place] CO2 [Moles/Vol] 25 mmol/L Normal 22-30 [facility] Comment on above: Order Comment: David sol Type: BLOOD SPECIMENOrdering Facility: [facility] Address: [address] [place] [address] Performed By: #### 3 3762-6, [id number], 34502-2 ####[facility] LABORATORYCLIA [id number] [place] [address] [place] Creatinine [Mass/Vol] 0.89 mg/dL Normal 0.58-0.96 [facility] Comment on above: Order Comment: David men Type: BLOOD SPECIMENOrdering Facility: [facility] Address: [address] [place] [address] Performed By: #### 3 3762-6, [id number], 21596-4 ####[facility] LABORATORYCLIA [id number] [place] [id number] [place] Creatinine and Glomerular filtration rate.predicted panel (S/P/Bld) 82 mL/min/1.73m??? Normal >=60 [facility] Comment on above: Order Comment: David horton Type: BLOOD SPECIMENOrdering Facility: [facility] Address: [address] [place] [address] Result Comment: Vidal mated Glomerular Filtration Rate [...] accurately reflect actual GFR. Performed By: #### 3 3762-6, [id number], 19536-6 ####[facility] LABORATORYCLIA [id number] [place] [address] [place] Glucose [Mass/Vol] 80 mg/dL Normal 74-99 [facility] Comment on above: Order Comment: David sol Type: BLOOD SPECIMENOrdering Facility: [facility] Address: [address] [place] [address] Result Comment: The [place] [employer] (ADA) provides guidance for cutoff values for fasting glucose and random glucose. The ADA defines fasting as no caloric intake for at least 8 hours. Fasting plasma glucose results between 100 to 125 mg/dL indicate increased risk for diabetes (prediabetes).Fasting plasma glucose results greater than or equal to 126 mg/dL meet the criteria for diagnosis of diabetes. In the absence of unequivocal hyperglycemia, results should be confirmed by repeat testing. In a patient with classic symptoms of hyperglycemia or hyperglycemic crisis, random plasma glucose results greater than or equal to 200 mg/dL meet the criteria for diagnosis of diabetes.Reference: Standards of Medical Care in Diabetes 2016, [place] [employer]. Diabetes Care. 2016.39(Suppl 1). Performed By: #### 3 3762-6, [id number], 11874-0 ####[facility] LABORATORYCLIA [id number] [place] [address] [place] Potassium [Moles/Vol] 4.3 mmol/L Normal 3.7-5.1 [facility] Comment on above: Order Comment: David horton Type: BLOOD SPECIMENOrdering Facility: [facility] Address: [address] [place] [address] Performed By: #### 3 3762-6, [id number], 69298-3 ####[facility] LABORATORYCLIA [id number] [place] [address] [place] Protein [Mass/Vol] 7.3 g/dL Normal 6.3-8.0 [facility] Comment on above: Order Comment: David horton Type: BLOOD SPECIMENOrdering Facility: [facility] Address: [address] [place] [address] Performed By: #### 3 3762-6, [id number], 60842-6 ####[facility] LABORATORYCLIA [id number] [place] [address] [place] Sodium [Moles/Vol] 137 mmol/L Normal 136-144 [facility] Comment on above: Order Comment: David horton Type: BLOOD SPECIMENOrdering Facility: [facility] Address: [address] [place] [address] Performed By: #### 3 3762-6, [id number], 61028-3 ####[facility]ORATORYCLIA [id number] [place] [address] [place] Urea nitrogen [Mass/Vol] 11 mg/dL Normal 7-21 [facility] Comment on above: Order Comment: Speci men Type: BLOOD SPECIMENOrdering Facility: [facility] Address: [address] [place] [address] Performed By: #### 3 3762-6, [id number], 73951-8 ####[facility]ORATORYCLIA [id number] [place] [address] [facility] ED NOTEon 05-15-2024 ED NOTE HNO ID: [id number] Author: CK TADEO, RN Service: Nursing Author Type: Registered Nurse Type: ED Notes Filed: 05/15/2024 17:54 Note Text: Report called to [address] [place] [address] [facility] [facility]on 05-15-[address] [facility] Gas and Carbon monoxide pane l (BldV)on 05-15-2024 Base excess Calc (BldV) [Moles/Vol] 0 mmol/L Normal 0-2 [facility] Comment on above: Order Comment: Speci men Type: VENOUS BLOOD SPECIMENOrdering Facility: [facility] Address: [address] [place] [address] Performed By: #### 2 4344-4 ####[facility] RESPIRATORYCLIA [id number] [facility]AT[facility] [id number] [place] [address] Carboxyhemoglobin (BldV) [Mass fraction] 2.5 % High 0.0-2.0 [facility] Comment on above: Order Comment: Speci men Type: VENOUS BLOOD SPECIMENOrdering Facility: [facility] Address: [address] [place] [address] Result Comment: Carb oxyhemoglobin Reference Range for Smokers: 2.0-8.0% Performed By: #### 2 4344-4 ####[facility] RESPIRATORYCLIA [id number] [facility] [id number] [place] [phone] CO2 (BldV) [Partial pressure] 41 mm[Hg] Low 42-55 [facility] Comment on above: Order Comment: Speci men Type: VENOUS BLOOD SPECIMENOrdering Facility: [facility] Address: [address] [place] [address] Performed By: #### 2 4344-4 ####[facility] RESPIRATORYCLIA [id number] [facility] RESPIRAT[facility] [id number] [address] [address] CO2 adjusted to patient's actual temperature (BldV) [Partial pressure] Normal [facility] Comment on above: Order Comment: Speci men Type: VENOUS BLOOD SPECIMENOrdering Facility: [facility] Address: [address] [place] [address] Performed By: #### 2 4344-4 ####[facility] RESPIRATORYCLIA [id number] [facility]OS[facility] RESPIRATORY [id number] [address] [address] HCO3 (Bld) [Moles/Vol] 25 mmol/L Normal 24-28 [facility] Comment on above: Order Comment: Speci men Type: VENOUS BLOOD SPECIMENOrdering Facility: [facility] Address: [address] [place] [address] Performed By: #### 2 4344-4 ####[facility] RESPIRATORYCLIA [id number] [facility] RESPIRATORY [id number] [address] [address] Hemoglobin (Bld) [Mass/Vol] 15.4 g/dL Normal 11.5-15.5 [facility] Comment on above: Order Comment: Speci men Type: VENOUS BLOOD SPECIMENOrdering Facility: [facility] Address: [address] [place] [address] Performed By: #### 2 4344-4 ####[facility] RESPIRATORYCLIA [id number] [facility]OS[facility] RESPIRATORY [id number] [address] [address] Lactate [Moles/Vol] 1.2 mmol/L Normal 0.5-2.2 [facility] Comment on above: Order Comment: Speci men Type: VENOUS BLOOD SPECIMENOrdering Facility: [facility] Address: [address] [place] [address] Performed By: #### 2 4344-4 ####[facility] RESPIRATORYCLIA [id number] [facility] RESPIRATORY [id number] [address] [address] Methemoglobin (Bld) [Mass fraction] % Normal 0.0-1.5 [facility] Comment on above: Order Comment: Speci men Type: VENOUS BLOOD SPECIMENOrdering Facility: [facility] Address: [address] [place] [address] Performed By: #### 2 4344-4 ####[facility] RESPIRATORYCLIA [id number] [facility]OS[facility] RESPIRATORY [id number] [address] [address] O2 THERAPY RA=Room Air Normal [facility] Comment on above: Order Comment: Speci men Type: VENOUS BLOOD SPECIMENOrdering Facility: [facility] Address: [address] [place] [address] Performed By: #### 2 4344-4 ####[facility] RESPIRATORYCLIA [id number] [facility] RESPIRATORY [id number] [address] [address] Oxygen (BldV) [Partial pressure] 32 mm[Hg] Low 35-45 [facility] Comment on above: Order Comment: Speci men Type: VENOUS BLOOD SPECIMENOrdering Facility: [facility] Address: [address] [place] [address] Performed By: #### 2 4344-4 ####[facility] RESPIRATORYCLIA [id number] [facility]OS[facility] RESPIRATORY [id number] [address] [address] Oxygen adjusted to patient's actual temperature (BldV) [Partial pressure] [facility] Comment on above: Order Comment: Speci men Type: VENOUS BLOOD SPECIMENOrdering Facility: [facility] Address: [address] [place] [address] Performed By: #### 2 4344-4 ####[facility] RESPIRATORYCLIA [id number] [facility]OSPITAL RESPIRATORY [id number] [address] [address] Oxygen saturation in Venous blood 59 % Low 60-85 [facility] Comment on above: Order Comment: Speci men Type: VENOUS BLOOD SPECIMENOrdering Facility: [facility] Address: [address] [place] [address] Performed By: #### 2 4344-4 ####[facility] RESPIRATORYCLIA [id number] [facility]OSPITAL RESPIRATORY [id number] [address] [address] Oxyhemoglobin (BldV) [Mass fraction] 57 % Low 60-85 [facility] Comment on above: Order Comment: Speci men Type: VENOUS BLOOD SPECIMENOrdering Facility: [facility] Address: [address] [place] [address] Performed By: #### 2 4344-4 ####[facility] RESPIRATORYCLIA [id number] [facility] RESPIRATORY [id number] [address] [address] pH (BldV) 7.39 [pH] Normal 7.32-7.42 [facility] Comment on above: Order Comment: Speci men Type: VENOUS BLOOD SPECIMENOrdering Facility: [facility] Address: [address] [place] [address] Performed By: #### 2 4344-4 ####[facility] [id number] [facility] RESPIRATORY [id number] [place] [id number] pH adjusted to patient's actual temperature (BldV) Normal [facility] Comment on above: Order Comment: Speci men Type: VENOUS BLOOD SPECIMENOrdering Facility: [facility] Address: [address] [place] [address] Performed By: #### 2 4344-4 ####[facility] [id number] [facility] RESPIRATORY [id number] [address] Potassium [Moles/Vol] 3.9 mmol/L Normal 3.5-5.0 [facility] Comment on above: Order Comment: Speci men Type: VENOUS BLOOD SPECIMENOrdering Facility: [facility] Address: [address] [place] [address] Performed By: #### 2 4344-4 ####[facility] [id number] [facility]OS[facility] RESPIRATORY [id number] [address] [address] HIGH SENSITIVITY TROPONIN T (INITIAL)on 05-15-2024 Troponin T.cardiac High sensitivity method [Mass/Vol] 22 ng/L High <12 [facility] Comment on above: Order Comment: Speci men Type: BLOOD SPECIMENOrdering Facility: [facility] Address: [address] [place] [address] Performed By: #### 3 3762-6, [id number], 38789-5 ####[facility] LABORATORYCLIA [id number] [address] HIGH SENSITIVITY TROPONIN T (SECOND)on 05-15-2024 Troponin T.cardiac High sensitivity method [Mass/Vol] 22 ng/L High <12 [facility] Comment on above: Order Comment: Speci men Type: BLOOD SPECIMENOrdering Facility: [facility] Address: [address] [place] [address] Performed By: #### L [id number] ####[facility] LABORATORYCLIA [id number] [address] HIGH SENSITIVITY TROPONIN T (THIRD) 3 HRS AFTER INITIALon 05-15-2024 Troponin T.cardiac High sensitivity method [Mass/Vol] 24 ng/L High <12 [facility] Comment on above: Order Comment: Speci men Type: BLOOD SPECIMENOrdering Facility: [facility] Address: [address] [place] [address] Performed By: #### L [id number] ####[facility] LABORATORYCLIA [id number] [address] HISTORY PHYSICALon HISTORY PHYSICAL Normal [facility] NT-proBNP SerPl-mCncon 05-15 Natriuretic peptide.B prohormone N-Terminal [Mass/Vol] 2616 pg/mL High <125 [facility] Comment on above: Order Comment: Speci men Type: BLOOD SPECIMENOrdering Facility: [facility] Address: [address] [place] [address] Performed By: #### 3 3762-6, [id number], 86612-7 ####[facility] LABORATORYCLIA [id number] [address] PT panel Coag (PPP)on 2024 INR Coag (PPP) [Relative time] 1.1 {INR} Normal 0.9-1.3 [facility] Comment on above: Order Comment: Speci men Type: BLOOD SPECIMENOrdering Facility: [facility] Address: [address] [place] [address] Result Comment: Nancy min K Antagonist (VKA) Therapeutic Range: INR 2 to 3 (Target INR of 2.5)Note: For patients treated with VKA drugs, such as warfarin, the [place] [employer] 2012 Guideline recommends a therapeutic INR range of 2 to 3 (target INR of 2.5). This recommendation includes high-risk patients with antiphospholipid syndrome with previous arterial or venous thromboembolism, current-generation mechanical or bioprosthetic aortic heart valve replacement.Note: Patients with mechanical aortic valve replacement and additional risk factors for thromboembolic events (atrial fibrillation, previous thromboembolism, LV dysfunction, hypercoagulable conditions) or an older generation mechanical AVR (i.e., ball in-Cage) or any mechanical MVR should have a INR therapeutic range of 2.5 to 3.5 (target INR of 3).Coby GH, et al. Chest 2012, 141:7S-47SNishimdeneen RA, et al. [facility] 2017, 70: 252-289 Performed By: #### 3 4528-0, 60775-4 ####[facility] LABORATORYCLIA [id number] [place] [address] [place] PT Coag (PPP) [Time] 11.7 s Normal 9.7-13.0 [facility] Comment on above: Order Comment: David horton Type: BLOOD SPECIMENOrdering Facility: [facility] Address: [address] [place] [address] Performed By: #### 3 4528-0, 86396-6 ####[facility] LABORATORYCLIA [id number] [place] [address] [place] XR CHEST 1V FRONTAL PORTon 0 05-15-2024 XR CHEST 1V FRONTAL PORT Normal [facility] aPTT PPPon 05-15-2024 aPTT Coag (PPP) [Time] 28.2 s Normal 23.0-32.4 [facility] Comment on above: Order Comment: David horton Type: BLOOD SPECIMENOrdering Facility: [facility] Address: [address] [place] [address] Performed By: #### 3 4528-0, 73797-3 ####[facility] LABORATORYCLIA [id number] [place] [address] [place] Emergency Department Summary on 05-12-2024 Emergency Department Summary Normal [facility] Pacemaker Checkon 03-28-2024 Pacemaker Check Normal [facility] CBC (INCLUDES DIFF/PLT)on Basophils (Bld) [#/Vol] 0.056 10*3/uL Normal 0-200 [facility] Comment on above: Performed By: #### 1 0231, 7137, 5616, 1005, 899, 6399 #### [facility] of [address], [address] [place] [address] Privacy Manager: Gage Viramontes MD Basophils/100 WBC (Bld) 0.5 % Normal [facility] Comment on above: Performed By: #### 1 0231, 7137, 5616, 1005, 899, 6399 #### [facility] of [address], [address] [place] [address] Privacy Manager: Gage Viramontes MD Eosinophils (Bld) [#/Vol] 0.122 10*3/uL Normal 15-500 [facility] Comment on above: Performed By: #### 1 0231, 7137, 5616, 1005, 899, 6399 #### [facility] [place] [address] Privacy Manager: Gage Viramontes MD Eosinophils/100 WBC (Bld) 1.1 % Normal [facility] Comment on above: Performed By: #### 1 0231, 7137, 5616, 1005, 899, 6399 #### [facility] of [place] [address] Privacy Manager: Gage Viramontes MD Erythrocyte distribution width (RBC) [Ratio] 11.5 % Normal 11.0-15.0 [facility] Comment on above: Performed By: #### 1 0231, 7137, 5616, 1005, 899, 6399 #### [facility] of [place] [phone] Privacy Manager: Gage Viramontes MD Hematocrit (Bld) [Volume fraction] 43.8 % Normal 35.0-45.0 [facility] Comment on above: Performed By: #### 1 0231, 7137, 5616, 1005, 899, 6399 #### [facility] of [address], [address] [place] [address] Privacy Manager: Gage Viramontes MD Hemoglobin (Bld) [Mass/Vol] 14.5 g/dL Normal 11.7-15.5 [facility] Comment on above: Performed By: #### 1 0231, 7137, 5616, 1005, 899, 6399 #### [facility] of [place] [address] Privacy Manager: Gage Viramontes MD Lymphocytes (Bld) [#/Vol] 1.021 10*3/uL Normal 850-3900 [facility] Comment on above: Performed By: #### 1 0231, 7137, 5616, 1005, 899, 6399 #### [facility] of [address], [address] [place] [address] Privacy Manager: Gage Viramontes MD Lymphocytes/100 WBC (Bld) 9.2 % Normal [facility] Comment on above: Performed By: #### 1 0231, 7137, 5616, 1005, 899, 6399 #### [facility] of [place] [address] Privacy Manager: Gage Viramontes MD MCH (RBC) [Entitic mass] 31.7 pg Normal 27.0-33.0 [facility] Comment on above: Performed By: #### 1 0231, 7137, 5616, 1005, 899, 6399 #### [facility] of [place] [address] Privacy Manager: Gage Viramontes MD MCHC (RBC) [Mass/Vol] 33.1 g/dL Normal 32.0-36.[address] [facility] Comment on above: Result Comment: For adults, a slight decrease in the calculated MCHC value (in the range of 30 to 32 g/dL) is most likely not clinically significant; however, it should be interpreted with caution in correlation with other red cell parameters and the patient's clinical condition. Performed By: #### 1 0231, 7137, 5616, 1005, 899, 6399 #### [facility] [place] [address] Privacy Manager: Gage Viramontes MD MCV (RBC) [Entitic vol] 95.8 fL Normal 80.0-100.0 [facility] Comment on above: Performed By: #### 1 0231, 7136, 5616, 1005, 899, 6399 #### [facility] [place] [address] Privacy Manager: Gage Viramontes MD Monocytes (Bld) [#/Vol] 0.522 10*3/uL Normal 200-950 [facility] Comment on above: Performed By: #### 1 0231, 7136, 561, 1005, 899, 6399 #### [facility] [place] [address] Privacy Manager: Gage Viramontes MD Monocytes/100 WBC (Bld) 4.7 % Normal [facility] Comment on above: Performed By: #### 1 023, 7136, 561, 1005, 899, 6399 #### [facility] of [place] [address] Privacy Manager: Gage Viramontes MD Neutrophils (Bld) [#/Vol] 9.38 10*3/uL High 2914-5230 [facility] Comment on above: Performed By: #### 1 0231, 7136, 5616, 1005, 899, 6399 #### [facility] of [place] [address] Privacy Manager: Gage Viramontes MD Neutrophils/100 WBC (Bld) 84.5 % Normal [facility] Comment on above: Performed By: #### 1 0231, 7137, 5616, 1005, 899, 6399 #### [facility] of [place] [address] Privacy Manager: Gage Viramontes MD Platelet mean volume (Bld) [Entitic vol] 12.1 fL Normal 7.5-12.5 [facility] Comment on above: Performed By: #### 1 0231, 7137, 5616, 1005, 899, 6399 #### [facility] of [address], [address] [place] [address] Privacy Manager: Gage Viramontes MD Platelets (Bld) [#/Vol] 270 10*3/uL Normal 140-400 [facility] Comment on above: Performed By: #### 1 0231, 7137, 5616, 1005, 899, 6399 #### [facility] of [address], [address] [place] [address] Privacy Manager: Gage Viramontes MD RBC (Bld) [#/Vol] 4.57 10*6/uL Normal 3.80-5.10 [facility] Comment on above: Performed By: #### 1 0231, 7137, 5616, 1005, 899, 6399 #### [facility] of [address], [address] [place] [address] Privacy Manager: Gage Viramontes MD WBC (Bld) [#/Vol] 11.1 10*3/uL High 3.8-10.8 [facility] Comment on above: Performed By: #### 1 0231, 7137, 5616, 1005, 899, 6399 #### [facility] of [place] [address] Privacy Manager: Gage Viramontes MD [email or web address]] METABOLIC PANE [facility] 01-06-2024 Albumin [Mass/Vol] 5.0 g/dL Normal 3.6-5.1 [facility] Comment on above: Performed By: #### 1 0231, 7137, 5616, 1005, 899, 6399 #### [facility] of [address], [address] [place] [address] Privacy Manager: Gage Viramontes MD Albumin/Globulin [Mass ratio] 1.9 {ratio} Normal 1.0-2.5 [facility] Comment on above: Performed By: #### 1 0231, 7137, 5616, 1005, 899, 6399 #### [facility] of [address], [address] [place] [address] Privacy Manager: Gage Viramontes MD ALP [Catalytic activity/Vol] 93 U/L Normal 31-125 [facility] Comment on above: Performed By: #### 1 0231, 7137, 5616, 1005, 899, 6399 #### [facility] of [place] [address] Privacy Manager: Gage Viramontes MD ALT [Catalytic activity/Vol] 27 U/L Normal 6-29 [facility] Comment on above: Performed By: #### 1 0231, 7137, 5616, 1005, 899, 6399 #### [facility] of [place] [address] Privacy Manager: Gage Viramontes MD AST [Catalytic activity/Vol] 21 U/L Normal 10-30 [facility] Comment on above: Performed By: #### 1 0231, 7137, 5616, 1005, 899, 6399 #### [facility] of [place] [address] Privacy Manager: Gage Viramontes MD Bilirubin [Mass/Vol] 0.6 mg/dL Normal 0.2-1.2 [facility] Comment on above: Performed By: #### 1 0231, 7137, 5616, 1005, 899, 6399 #### [facility] of [place] [address] Privacy Manager: Gage Viramontes MD BUN/CREATININE RATIO SEE NOTE: Normal 6-22 [facility] Comment on above: Result Comment: Not Reported: BUN and Creatinine are within reference range. Performed By: #### 1 0231, 7137, 5616, 1005, 899, 6399 #### [facility] of [place] [address] Privacy Manager: Gage Viramontes MD Calcium [Mass/Vol] 9.8 mg/dL Normal 8.6-10.2 [facility] Comment on above: Performed By: #### 1 0231, 37, 5616, 1005, 899, 6399 #### [facility] [place] [address] Privacy Manager: Gage Viramontes MD Chloride [Moles/Vol] 108 mmol/L Normal 98-110 [facility] Comment on above: Performed By: #### 1 0231, 37, 561, 1005, 899, 6399 #### [facility] of [place] [address] Privacy Manager: Gage Viramontes MD CO2 [Moles/Vol] 22 mmol/L Normal 20-32 [facility] Comment on above: Performed By: #### 1 0231, 7136, 561, 1005, 899, 6399 #### [facility] of [place] [address] Privacy Manager: Gage Viramontes MD Creatinine [Mass/Vol] 0.77 mg/dL Normal 0.50-0.[address] [facility] Comment on above: Performed By: #### 1 0231, 7136, 561, 1005, 899, 6399 #### [facility] of [place] [address] Privacy Manager: Gage Viramontes MD GFR/1.73 sq M.predicted among non-blacks MDRD (S/P/Bld) [Vol rate/Area] 97 mL/min/{1.73_m2} Normal > OR = 60 [facility] Comment on above: Performed By: #### 1 0231, 7137, 5616, 1005, 899, 6399 #### [facility] of [address] [place] [address] Privacy Manager: Gage Viramontes MD Globulin (S) [Mass/Vol] 2.6 g/dL Normal 1.9-3.7 [facility] Comment on above: Performed By: #### 1 0231, 7137, 5616, 1005, 899, 6399 #### [facility] [place] [address] Privacy Manager: Gage Viramontes MD Glucose [Mass/Vol] 82 mg/dL Normal 65-99 [facility] Comment on above: Result Comment: Fasting reference interval Performed By: #### 1 0231, 7137, 5616, 1005, 899, 6399 #### [facility] [place] [address] Privacy Manager: Gage Viramontes MD Potassium [Moles/Vol] 3.9 mmol/L Normal 3.5-5.[address] [facility] Comment on above: Performed By: #### 1 0231, 37, 561, 1005, 899, 6399 #### [facility] [place] [address] Privacy Manager: Gage Viramontes MD Protein [Mass/Vol] 7.6 g/dL Normal 6.1-8.1 [facility] Comment on above: Performed By: #### 1 0231, 37, 561, 1005, 899, 6399 #### [facility] [place] [address] Privacy Manager: Gage Viramontes MD Sodium [Moles/Vol] 138 mmol/L Normal 135-146 [facility] Comment on above: Performed By: #### 1 0231, 7137, 5616, 1005, 899, 6399 #### [facility] of [place] [address] Privacy Manager: Gage Viramontes MD Urea nitrogen [Mass/Vol] 12 mg/dL Normal 7-25 [facility] Comment on above: Performed By: #### 1 0231, 7137, 5616, 1005, 899, 6399 #### [facility] [place] [address] Privacy Manager: Gage Viramontes MD FSH AND LHon 01-06-2024 FSH 3.7 mIU/mL Normal [facility] Comment on above: Result Comment: Refe rence Range Follicular Phase 2.5-10.2 Mid-cycle Peak 3.1-17.7 Luteal Phase 1.5- 9.1 Postmenopausal 23.0-116.3 Performed By: #### 1 0231, 7137, 5616, 1005, 899, 6399 #### [facility] [place] [address] Privacy Manager: Gage Viramontes MD LH 3.0 mIU/mL Normal [facility] Comment on above: Result Comment: Refe rence Range Follicular Phase 1.9-12.5 Mid-Cycle Peak 8.7-76.3 Luteal Phase 0.5-16.9 Postmenopausal 10.0-54.7 Performed By: #### 1 0231, 7137, 5616, 1005, 899, 6399 #### [facility] [place] [address] Privacy Manager: Gage Viramontes MD IRON, TIBC AND FERRITIN [facility] 01-06-2024 % SATURATION 37 % (calc) Normal 16-45 [facility] Comment on above: Performed By: #### 1 0231, 7137, 5616, 1005, 899, 6399 #### [facility] [place] [address] Privacy Manager: Gage Viramontes MD Ferritin [Mass/Vol] 73 ng/mL Normal 16-232 [facility] Comment on above: Performed By: #### 1 0231, 7137, 5616, 1005, 899, 6399 #### [facility] [place] [address] Privacy Manager: Gage Viramontes MD IRON BINDING CAPACITY 340 mcg/dL (calc) Normal 250-450 [facility] Comment on above: Performed By: #### 1 0231, 7137, 5616, 1005, 899, 6399 #### [facility] [address], [address] [place] [address] Privacy Manager: Gage Viramontes MD IRON, TOTAL 125 mcg/dL Normal 40-190 [facility] Comment on above: Performed By: #### 1 0231, 7137, 5616, 1005, 899, 6399 #### [facility] [address], [address] [place] [address] Privacy Manager: Gage Viramontes MD TEST AUTHORIZATIONon CLIENT CONTACT: Normal [facility] Comment on above: Performed By: #### 1 0231, 7137, 5616, 1005, 899, 6399 #### [facility] [address], [address] [place] [address] Privacy Manager: Gage Viramontes MD COMMENT Normal [facility] Comment on above: Result Comment: Plea se have the ordering physician or his or her authorized goodwill representative sign a copy of this report and promptly return it by faxing it to: [phone] or by returning the form to your primary teaching assistant. Performed By: #### 1 0231, 7137, 5616, 1005, 899, 6399 #### [facility] [address], [address] [place] [address] Privacy Manager: Gage Viramontes MD REPORT ALWAYS MESSAGE SIGNATURE Normal [facility] Comment on above: Result Comment: The laboratory testing on this patient was verbally requested or confirmed by the ordering physician or his or her authorized goodwill representative after contact with an employee of [employer]. Federal regulations require that we maintain on file written authorization for all laboratory testing. Accordingly we are asking that the ordering physician or his or her authorized goodwill representative sign a copy of this report and promptly return it to the software client architect. Signature: _ Performed By: #### 1 0231, 7137, 5616, 1005, 899, 6399 #### [facility] [place] [address] Privacy Manager: Gage Viramontes MD TEST CODE: [id number] Normal [facility] Comment on above: Performed By: #### 1 0231, 7137, 5616, 1005, 899, 6399 #### [facility] [place] [address] Privacy Manager: Gage Viramontes MD TEST NAME: CMP Normal [facility] Comment on above: Performed By: #### 1 0231, 7137, 5616, 1005, 899, 6399 #### [facility] [place] [address] Privacy Manager: Gage Viramontes MD TSHon 01-06-2024 TSH Qn 0.95 m[IU]/L Normal [facility] Comment on above: Result Comment: Refe rence Range > or = 20 Years 0.40-4.50 Ranges First trimester 0.26-2.66 Second trimester 0.55-2.73 Third trimester 0.43-2.91 Performed By: #### 1 0231, 7137, 5616, 1005, 899, 6399 #### [facility] [place] [address] Privacy Manager: Gage Viramontes MD Final Surgical Pathology [facility] 11-01-2023 Final Surgical Pathology Report . Pathology Reports Accession: Collected Date/Time: Received Date/Time: Pathologist: [id number] 10/31/2023 10:23 EDT 10/31/2023 14:26 EDT MD [...] All parts labelled with patient name and [id number] A. Received in formalin labeled "terminal ileum" are 2 maharaj-pink tissue fragments each measuring 0.2 cm. TS-1 B. Received in formalin labeled "right and left colon" are multiple maharaj-pink tissue fragments aggregating 1.3 x 0.2 x 0.2 cm. TS-1 Flakita Rodrigez, Grossing Comb Fixer/ Dr. Nabor Jarrett, Pathologist Performed by Flakita Rodrigez MICROSCOPIC DESCRIPTION: The microscopic examination is performed, except in the case of Gross Only. Electronically Signed by Pathology Report verified by [facility] KAYLYN PELAYO MD Sign out Date: 11/01/2023 09:26 Performing Lab: [facility], [address] [place] [address] Pathology Dept Disclaimer If ancillary studies were utilized, the following Laboratory Developed Test (LDT) disclaimer will apply: Under CLIA requirements, [facility] is qualified to perform high complexity testing. For all ancillary stains, positive and negative controls stain appropriately. Performance characteristics of immunohistochemical and chromogenic in-situ hybridization tests have been determined by [facility]. These tests are used for clinical purposes, They should not be regarded as investigational or for research. Normal [facility] ([place]) Absolute lymphocyte countOrd ered By: Suman Lowe on 07-04-2023 Lymphocytes Auto (Unsp spec) [#/Vol] 1.65 10*3/uL 0.83-4.51 [facility] Automated lymphocyte count a s percentage of total leukocytesOrdered By: Suman Lowe on 07-04-2023 Lymphocytes/100 WBC Auto (Unsp spec) 19.6 % 19-41 [facility] Basophil percentageOrdered B y: Suman Lowe on 07-04-2023 Basophil percentage 0-5 SEEN /hpf 0-5 [facility] Basophils/100 WBC (Bld) 0.8 % 0-1 [facility] Bilirubin [Mass/Vol] 0.60 mg/dL 0.20-1.00 [facility] Comment on above: For patients on eltr ombopag therapy, use of Dimension [place] TBIL is not recommended. Chloride [Moles/Vol] 107 mmol/L 98-107 [facility] Eosinophils/100 WBC (Bld) 1.5 % 0-5 [facility] Glucose [Mass/Vol] 105 mg/dL 74-106 [facility] Comment on above: Fasting Glucose resu lt from 100 to 125 mg/dL suggests IMPAIRED HOMEOSTASIS per A.D.A. criteria. Hemoglobin (Bld) [Mass/Vol] 13.6 g/dL 12.0-15.0 [facility] Monocytes/100 WBC (Bld) 6.1 % 0-10 [facility] Neutrophils (Bld) [#/Vol] 6.0 10*3/uL 2.0-7.7 [facility] Neutrophils/100 WBC (Bld) 71.6 % 47-70 [facility] Potassium [Moles/Vol] 4.0 mmol/L 3.5-5.1 [facility] Comment on above: Moderate Hemolysis, Result may be falsely increased. Protein [Mass/Vol] 7.1 g/dL 6.4-8.2 [facility] Sodium [Moles/Vol] 137 mmol/L 136-145 [facility] WBC (Bld) [#/Vol] 8.4 10*3/uL 4.4-11.0 [facility] Bilirubin Test strip Ql (U)O rdered By: Suman Lowe on 07-04-2023 Bilirubin Ql (U) Negative Negative [facility] Determination of erythrocyte mean corpuscular volume (MCV)Ordered By: Suman Lowe on 07-04-2023 MCV (RBC) [Entitic vol] 97.7 fL 81-99 [facility] Erythrocyte distribution wid th ratioOrdered By: Suman Lowe on 07-04-2023 Erythrocyte distribution width (RBC) [Ratio] 13.2 % 11.6-14.6 [facility] Erythrocyte distribution wid th standard deviationOrdered By: Suman Lowe on 07-04-2023 Erythrocyte distribution width (RBC) [Entitic vol] 47.3 fL 35.1-43.9 [facility] Hematocrit Auto (Bld) [Volum e fraction]Ordered By: Suman Lowe on 07-04-2023 Hematocrit (Bld) [Volume fraction] 42.3 % 37-47 [facility] Immature granulocytes/100 WB C Auto (Bld)Ordered By: Suman Lowe on 07-04-2023 Immature granulocytes/100 WBC (Bld) 0.400 % 0.0-0.9 [facility] Comment on above: IG% - Immature Granu locytes (promyelocytes, myelocytes and metamyelocytes) > 1% indicates that a LEFT SHIFT is Present. Ketones Test strip Ql (U)Ord ered By: Suman Lowe on 07-04-2023 Ketones Ql (U) Negative Negative [facility] Laboratory - Chemistry and C hemistry - challengeOrdered By: Suman Lowe on 07-04-2023 Albumin/Globulin [Mass ratio] 1.2 {ratio} 0.9-2.4 [facility] ALP [Catalytic activity/Vol] 97 U/L 45-117 [facility] ALT [Catalytic activity/Vol] 29 U/L 13-56 [facility] CO2 [Moles/Vol] 24.0 mmol/L 21.0-32.0 [facility] Globulin (S) [Mass/Vol] 3.2 g/dL 2.2-4.2 [facility] Lipase [Catalytic activity/Vol] 16 U/L 13-75 [facility] Comment on above: Please note:LIPASE r evised reference range effective 22. New Lipase methodology. Expected to produce lower values than the previous assay method. NEW Reference Range: 13 - 75 U/L Urea nitrogen/Creatinine [Mass ratio] 11.1 mg/mg 10-20 [facility] Laboratory - Hematology and Cell countsOrdered By: Suman Lowe on 07-04-2023 MCH (RBC) [Entitic mass] 31.4 pg 27.0-32.0 [facility] MCHC (RBC) [Mass/Vol] 32.2 g/dL 32-36 [facility] Nucleated RBC/100 WBC (Bld) [Ratio] 0 % 0-5 [facility] Platelet mean volume (Bld) [Entitic vol] 12.0 fL 6.2-12.0 [facility] Platelets (Bld) [#/Vol] 195 10*3/uL 150-450 [facility] Mucus LM Ql (Urine sed)Order ed By: Suman Lowe on 04-22-2024 Mucus Ql (Urine sed) 0 SEEN /hpf [facility] Nitrite Test strip Ql (U)Ord ered By: Suman Lowe on 07-04-2023 Nitrite Ql (U) Negative Negative [facility] No Panel InformationOrdered By: Suman Lowe on 07-04-2023 Urine RBC 10-25 SEEN /hpf 0-5 [facility] Estimated Creatinine Clearance Calc 77.33 ml/min [facility] Estimated GFR (MDRD) Amer 99 mL/min >60 [facility] Comment on above: GFR Calc Estimated GFR (MDRD) Non-Af Amer 82 mL/min >60 [facility] Comment on above: Non- GFR Calc Protein Test strip Ql (U)Ord ered By: Suman Lowe on 07-04-2023 Protein Ql (U) 15 mg/dl Negative [facility] RBC Auto (Bld) [#/Vol]Ordere d By: Suman Lowe on 07-04-2023 RBC (Bld) [#/Vol] 4.33 10*6/uL 4.2-5.4 [facility] Serum or plasma calcium leslie urement (mass/volume)Ordered By: Suman Lowe on 07-04-2023 Calcium [Mass/Vol] 8.9 mg/dL 8.5-10.1 [facility] Serum or plasma choriogonado tropin detectionOrdered By: Suman Lowe on 07-04-2023 HCG ( test) Ql Negative [facility] Serum or plasma creatinine m easurement (mass/volume)Ordered By: Suman Lowe on 07-04-2023 Creatinine [Mass/Vol] 0.81 mg/dL 0.55-1.02 [facility] Comment on above: The validity of the calculated GFR & GFRAA in patients over 70 years has not been determined. Clinical correlation is essential. Serum or plasma urea nitroge n measurement (mass/volume)Ordered By: Suman Lowe on 07-04-2023 Urea nitrogen [Mass/Vol] 9 mg/dL 7-18 [facility] Squamous epithelial cells de tection in urine sediment by light microscopyOrdered By: Suman Lowe on 07-04-2023 Epithelial cells.squamous LM Ql (Urine sed) 0-5 SEEN /hpf 5-10 [facility] Thin prep Papanicolaou smear with manual screeningOrdered By: Suman Lowe on 07-04-2023 Thin prep Papanicolaou smear with manual screening 3.9 g/dL 3.2-5.0 [facility] Thin prep Papanicolaou smear with manual screening 24 U/L 15-37 [facility] Comment on above: Moderate Hemolysis, Result may be falsely increased. Thin prep Papanicolaou smear with manual screening 6 5-15 [facility] Urine blood detectionOrdered By: Suman Lowe on 07-04-2023 RBC Ql (U) 150 /ul Negative [facility] Urine clarityOrdered By: Malgorzata Lowe on 07-04-2023 Clarity (U) Clear Clear [facility] Urine color determinationOrd ered By: Suman Lowe on 07-04-2023 Color (U) Yellow Yellow [facility] Urine glucose detectionOrder ed By: Suman Lowe on 07-04-2023 Glucose Ql (U) Normal mg/dl Normal [facility] Urine leukocyte esterase det ection by dipstickOrdered By: Suman Lowe on 07-04-2023 Leukocyte esterase Test strip Ql (U) 25 /ul Negative [facility] Urine pHOrdered By: Suman maya on 07-04-2023 pH (U) 7.0 [pH] 5.0 - 8.0 [facility] Urine sediment bacteria coun t by microscopy (number/high power field)Ordered By: Suman Lowe on 07-04-2023 Bacteria LM.HPF (Urine sed) [#/Area] RARE /hpf None Seen [facility] Urine specific gravity measu rementOrdered By: Suman Lowe on 07-04-2023 Specific gravity (U) [Rel density] 1.010 1.002-1.03 0 [facility] Urine urobilinogen measureme ntOrdered By: Suman Lowe on 07-04-2023 Urobilinogen Ql (U) Normal mg/dl Normal [facility] No Panel InformationOrdered By: Babar Wood on 12-26-2022 Troponin I High Sensitivity 48 pg/mL 3.0-54.0 [facility] Comment on above: Please Note: New Linh t Units and Gender Specific Reference Ranges. For more information see Policy Stat Procedure [place] High Sensitivity Troponin (TNIH) and attachments. Absolute lymphocyte countOrd ered By: Babar Wood on 12-25-2022 Lymphocytes Auto (Unsp spec) [#/Vol] 1.77 10*3/uL 0.83-4.51 [facility] Basophil percentageOrdered B y: Bbaar Wood on 12-25-2022 Basophils/100 WBC (Bld) 0.6 % 0-1 [facility] Chloride [Moles/Vol] 110 mmol/L 98-107 [facility] Eosinophils/100 WBC (Bld) 1.1 % 0-5 [facility] Glucose [Mass/Vol] 100 mg/dL 74-106 [facility] Comment on above: Fasting Glucose resu lt from 100 to 125 mg/dL suggests IMPAIRED HOMEOSTASIS per A.D.A. criteria. Neutrophils (Bld) [#/Vol] 9.1 10*3/uL 2.0-7.7 [facility] Neutrophils/100 WBC (Bld) 78.0 % 47-70 [facility] Potassium [Moles/Vol] 4.2 mmol/L 3.5-5.1 [facility] Comment on above: Slight Hemolysis, Re sult may be falsely increased. Sodium [Moles/Vol] 140 mmol/L 136-145 [facility] WBC (Bld) [#/Vol] 11.7 10*3/uL 4.4-11.0 [facility] Blood erythrocytes count (nu mber/volume)Ordered By: Babar Wood on 12-25-2022 RBC (Bld) [#/Vol] 4.15 10*6/uL 4.2-5.4 [facility] Blood hemoglobin measurement (mass/volume)Ordered By: Babar Wood on 12-25-2022 Hemoglobin (Bld) [Mass/Vol] 13.1 g/dL 12.0-15.0 [facility] Blood lymphocytes/100 leukoc ytesOrdered By: Babar Wood on 12-25-2022 Lymphocytes/100 WBC (Bld) 15.2 % 19-41 [facility] Blood monocytes/100 leukocyt esOrdered By: Babar Wood on 12-25-2022 Monocytes/100 WBC (Bld) 4.8 % 0-10 [facility] Blood platelet mean volumeOr dered By: Babar Wodo on 12-25-2022 Platelet mean volume (Bld) [Entitic vol] 10.7 fL 6.2-12.0 [facility] Determination of erythrocyte mean corpuscular volume (MCV)Ordered By: Babar Wood on 12-25-2022 MCV (RBC) [Entitic vol] 97.3 fL 81-99 [facility] Hematocrit Auto (Bld) [Volum e fraction]Ordered By: Babar Wood on 12-25-2022 Hematocrit (Bld) [Volume fraction] 40.4 % 37-47 [facility] INR in Blood by Coagulation assayOrdered By: Babar Wood on 12-25-2022 INR Coag (Bld) [Relative time] 1.1 {INR} [facility] Laboratory - Chemistry and C hemistry - challengeOrdered By: Babar Wood on 12-25-2022 CO2 [Moles/Vol] 24.0 mmol/L 21.0-32.0 [facility] Magnesium [Mass/Vol] 2.0 mg/dL 1.6-2.6 [facility] Comment on above: Slight Hemolysis, Re sult may be falsely increased. Urea nitrogen/Creatinine [Mass ratio] 13.0 mg/mg 10- [facility] Laboratory - CoagulationOrde red By: Babar Wood on 12-25-2022 aPTT Coag (Bld) [Time] 33.7 s 24.1-36.2 [facility] PT Coag (PPP) [Time] 14.1 s 11.7-14.9 [facility] Laboratory - Hematology and Cell countsOrdered By: Babar Wood on 12-25-2022 Erythrocyte distribution width (RBC) [Entitic vol] 48.4 fL 35.1-43.9 [facility] Erythrocyte distribution width (RBC) [Ratio] 13.5 % 11.6-14.6 [facility] Immature granulocytes/100 WBC (Bld) 0.300 % 0.0-0.9 [facility] Comment on above: IG% - Immature Granu locytes (promyelocytes, myelocytes and metamyelocytes) > 1% indicates that a LEFT SHIFT is Present. MCH (RBC) [Entitic mass] 31.6 pg 27.0-32.0 [facility] Nucleated RBC/100 WBC (Bld) [Ratio] 0 % 0-5 [facility] MCHC Auto (RBC) [Mass/Vol]Or dered By: Babar Wood on 12-25-2022 MCHC (RBC) [Mass/Vol] 32.4 g/dL 32-36 [facility] No Panel InformationOrdered By: Babar Wood on 12-25-2022 D-Dimer Quantitative (PE/DVT) 0.65 FEU/ug/m 0.27-0.49 [facility] Comment on above: CRITICAL VALUE VERIF IED. CALLED TO LUANA GARCIA RN [id number] [facility].RESULTS READ BACK BY SAME . D-Dimer ELEVATED (>0.49): Additional studies and clinicalassessments are indicated to conclude diagnosis of:Deep Vein Thrombosis (DVT) or Pulmonary Embolism (PE) Estimated Creatinine Clearance Calc 62.64 ml/min [facility] Estimated GFR (MDRD) Amer 78 mL/min >60 [facility] Comment on above: GFR Calc Estimated GFR (MDRD) Non-Af Amer 64 mL/min >60 [facility] Comment on above: Non- GFR Calc Platelets bldOrdered By: Sarath Wood on 12-25-2022 Platelets (Bld) [#/Vol] 271 10*3/uL 150-450 [facility] Serum or plasma calcium leslie urement (mass/volume)Ordered By: Babar Wood on 12-25-2022 Calcium [Mass/Vol] 8.9 mg/dL 8.5-10.1 [facility] Serum or plasma creatinine m easurement (mass/volume)Ordered By: Babar Wood on 12-25-2022 Creatinine [Mass/Vol] 1.00 mg/dL 0.55-1.02 [facility] Comment on above: The validity of the calculated GFR & GFRAA in patients over 70 years has not been determined. Clinical correlation is essential. Serum or plasma urea nitroge n measurement (mass/volume)Ordered By: Babar Wood on 12-25-2022 Urea nitrogen [Mass/Vol] 13 mg/dL 7-18 [facility] Thin prep Papanicolaou smear with manual screeningOrdered By: Babar Wood on 12-25-2022 Thin prep Papanicolaou smear with manual screening 6 5-15 [facility] No Panel Informationon 12-17 Troponin I High Sensitivity 41 pg/mL 3.0-54.0 [facility] Work Phone: Comment on above: Please Note: New Linh t Units and Gender Specific Reference Ranges. For more information see Policy Stat Procedure [place] High Sensitivity Troponin (TNIH) and attachments. Absolute lymphocyte counton 12-16-2021 Lymphocytes Auto (Unsp spec) [#/Vol] 0.93 10*3/uL 0.83-4.51 [facility] Work Phone: Basophil percentageon 2021 Basophils/100 WBC (Bld) 0.7 % 0-1 [facility] Work Phone: Chloride [Moles/Vol] 108 mmol/L 98-107 [facility] Work Phone: Eosinophils/100 WBC (Bld) 1.2 % 0-5 [facility] Work Phone: Glucose [Mass/Vol] 114 mg/dL 74-106 [facility] Work Phone: Comment on above: Fasting Glucose resu lt from 100 to 125 mg/dL suggests IMPAIRED HOMEOSTASIS per A.D.A. criteria. Neutrophils (Bld) [#/Vol] 8.7 10*3/uL 2.0-7.7 [facility] Work Phone: Neutrophils/100 WBC (Bld) 78.7 % 47-70 [facility] Work Phone: [phone] Potassium [Moles/Vol] 4.2 mmol/L 3.5-5.1 [facility] Work Phone: Comment on above: Moderate Hemolysis, Result may be falsely increased. Sodium [Moles/Vol] 138 mmol/L 136-145 [facility] Work Phone: WBC (Bld) [#/Vol] 11.1 10*3/uL 4.4-11.0 [facility] Work Phone: Blood erythrocytes count (nu mber/volume)on 12-16-2021 RBC (Bld) [#/Vol] 4.49 10*6/uL 4.2-5.4 [facility] Work Phone: Blood hemoglobin measurement (mass/volume)on 12-16-2021 Hemoglobin (Bld) [Mass/Vol] 14.4 g/dL 12.0-15.0 [facility] Work Phone: Blood lymphocytes/100 leukoc yteson 12-16-2021 Lymphocytes/100 WBC (Bld) 8.4 % 19-41 [facility] Work Phone: Blood monocytes/100 leukocyt eson 12-16-2021 Monocytes/100 WBC (Bld) 10.1 % 0-10 [facility] Work Phone: Blood platelet mean volumeon 12-16-2021 Platelet mean volume (Bld) [Entitic vol] 11.5 fL 6.2-12.0 [facility] Work Phone: Determination of erythrocyte mean corpuscular volume (MCV)on 12-16-2021 MCV (RBC) [Entitic vol] 97.1 fL 81-99 [facility] Work Phone: Hematocrit Auto (Bld) [Volum e fraction]on 12-16-2021 Hematocrit (Bld) [Volume fraction] 43.6 % 37-47 [facility] Work Phone: Laboratory - Chemistry and C hemistry - challengeon 12-16-2021 CO2 [Moles/Vol] 24.0 mmol/L 21.0-32.0 [facility] Work Phone: Urea nitrogen/Creatinine [Mass ratio] 17.6 mg/mg 10-20 [facility] Work Phone: Laboratory - Hematology and Cell countson 12-16-2021 Erythrocyte distribution width (RBC) [Entitic vol] 46.6 fL 35.1-43.9 [facility] Work Phone: Erythrocyte distribution width (RBC) [Ratio] 13.0 % 11.6-14.6 [facility] Work Phone: [phone] Immature granulocytes/100 WBC (Bld) 0.900 % 0.0-0.9 [facility] Work Phone: Comment on above: IG% - Immature Granu locytes (promyelocytes, myelocytes and metamyelocytes) > 1% indicates that a LEFT SHIFT is Present. MCH (RBC) [Entitic mass] 32.1 pg 27.0-32.0 [facility] Work Phone: Nucleated RBC/100 WBC (Bld) [Ratio] 0 % 0-5 [facility] Work Phone: [phone] MCHC Auto (RBC) [Mass/Vol]on 12-16-2021 MCHC (RBC) [Mass/Vol] 33.0 g/dL 32-36 [facility] Work Phone: No Panel Informationon 12-16 Estimated Creatinine Clearance Calc 74.45 ml/min [facility] Work Phone: [phone] Estimated GFR (MDRD) Amer 94 mL/min >60 [facility] Work Phone: [phone] Comment on above: GFR Calc Estimated GFR (MDRD) Non-Af Amer 77 mL/min >60 [facility] Work Phone: Comment on above: Non- GFR Calc Platelets bldon 12-16-2021 Platelets (Bld) [#/Vol] 227 10*3/uL 150-450 [facility] Work Phone: [phone] Serum or plasma calcium leslie urement (mass/volume)on 12-16-2021 Calcium [Mass/Vol] 9.5 mg/dL 8.5-10.1 [facility] Work Phone: [phone] Serum or plasma creatinine m easurement (mass/volume)on 12-16-2021 Creatinine [Mass/Vol] 0.85 mg/dL 0.55-1.02 [facility] Work Phone: Comment on above: The validity of the calculated GFR & GFRAA in patients over 70 years has not been determined. Clinical correlation is essential. Serum or plasma urea nitroge n measurement (mass/volume)on 12-16-2021 Urea nitrogen [Mass/Vol] 15 mg/dL -18 [facility] Work Phone: Thin prep Papanicolaou smear with manual screeningon 12-16-2021 Thin prep Papanicolaou smear with manual screening 6 07-26 [facility] Work Phone: CNDSon 04-27-2021 CNDS HNO ID: [id number] Author: Aj Mullins MD Service: Hospital Medicine [...] Attending Provider: Aj Mullins MD Primary Service: [place] [address] REASON FOR HOSPITALIZATION: Chest pain SOB Acute [...] patient was then transferred and admitted to [facility] for further evaluation and management Lasix [...] not cleared for the discharge by the operator specialist communications Pt. Left the hospital in the evening [...] Ativan [Lorazepam] Vomiting - Azithromycin Intolerance - [place] Anaphylaxis - Fish Anaphylaxis - Levofloxacin In [...] Normal, Disp (more content not included)... Normal [facility] Basic Metabolic Panlon 04-26 Anion gap [Moles/Vol] 12 mmol/L Normal 9-18 [facility] Comment on above: Performed By: #### B BRITT, LIPB, CBC ####[place] [phone] Calcium [Mass/Vol] 9.0 mg/dL Normal 8.5-10.5 [facility] Comment on above: Performed By: #### B MP, LIPB, CBC ####[place] [phone] Chloride [Moles/Vol] 103 mmol/L Normal 98-110 [facility] Comment on above: Performed By: #### B MP, LIPB, CBC ####[place] [phone] CO2 [Moles/Vol] 21 mmol/L Low 23-32 [facility] Comment on above: Performed By: #### B MP, LIPB, CBC ####[place] [phone] Creatinine [Mass/Vol] 0.73 mg/dL Normal 0.70-1.40 [facility] Comment on above: Performed By: #### B BREANNE DE LA TORREB, CBC ####[place] [phone] eGFR- Amer. >60 Normal >59 [facility] Comment on above: Performed By: #### B BREANNE DE LA TORREB, CBC ####[place] [phone] eGFR-All Other Races >60 Normal >59 [facility] Comment on above: Result Comment: eGFR (Estimated [...] #### B FRANKLIN DE LA TORRE, CBC ####[place] [phone] Glucose [Mass/Vol] 87 mg/dL Normal 65-100 [facility] Comment on above: Performed By: #### B FRANKLIN DE LA TORRE, CBC ####[place] [phone] Potassium [Moles/Vol] 3.7 mmol/L Normal 3.5-5.0 [facility] Comment on above: Performed By: #### B MP, LIPB, CBC ####[place] [address] Sodium [Moles/Vol] 136 mmol/L Normal 132-148 [facility] Comment on above: Performed By: #### B MP, LIPB, CBC ####[place] [address] Urea nitrogen [Mass/Vol] 11 mg/dL Normal 8-25 [facility] Comment on above: Performed By: #### B MP, LIPB, CBC ####[place] [address] CBCon 04-26-2021 Absolute nRBC <0.01 Normal <0.01 [facility] Comment on above: Performed By: #### B MP, LIPB, CBC ####[place] [address] Erythrocyte distribution width (RBC) [Ratio] 13.3 % Normal 11.5-15.0 [facility] Comment on above: Performed By: #### B MP, LIPB, CBC ####[place] [address] Hematocrit (Bld) [Volume fraction] 38.6 % Normal 36.0-46.0 [facility] Comment on above: Performed By: #### B MP, LIPB, CBC ####[place] [address] Hemoglobin (Bld) [Mass/Vol] 12.5 g/dL Normal 11.5-15.5 [facility] Comment on above: Performed By: #### B MP, LIPB, CBC ####[place] [address] MCH 31.2 pG Normal 26.0-34.0 [facility] Comment on above: Performed By: #### B MP, LIPB, CBC ####[place] [address] MCHC (RBC) [Mass/Vol] 32.4 g/dL Normal 30.5-36.0 [facility] Comment on above: Performed By: #### B MP, LIPB, CBC ####[place] [phone] MCV (RBC) [Entitic vol] 96.3 fL Normal 80.0-100.0 [facility] Comment on above: Performed By: #### B MP, LIPB, CBC ####[place] [phone] Platelet mean volume (Bld) [Entitic vol] 11.7 fL Normal 9.0-12.7 [facility] Comment on above: Performed By: #### B MP, LIPB, CBC ####[place] [phone] Platelets (Bld) [#/Vol] 209 10*3/uL Normal 150-400 [facility] Comment on above: Performed By: #### B MP, LIPB, CBC ####[place] [phone] RBC (Bld) [#/Vol] 4.01 10*6/uL Normal 3.90-5.20 [facility] Comment on above: Performed By: #### B MP, LIPB, CBC ####[place] [phone] WBC (Bld) [#/Vol] 7.40 10*3/uL Normal 3.70-11.00 [facility] Comment on above: Performed By: #### B MP, LIPB, CBC ####[place] [phone] CK, Total and CKMBon 022 CK [Catalytic activity/Vol] 50 U/L Normal 30-220 [facility] Comment on above: Performed By: #### C KCKMB, SAULO #### [place] [phone] CK MB % CK MB % not reported with CK <100 U/L. Normal 0.0-4.0 [facility] Comment on above: Performed By: #### C KCKMB, SAULO #### [facility] [address] [place] [address] MB 3.6 ng/mL Normal 0.0-8.8 [facility] Comment on above: Performed By: #### C KCKMB, SAULO #### [facility] [address] [place] [address] CONSULTon 04-26-2021 CONSULT HNO ID: [id number] Author: Tyrel Lane MD Service: Electrophysiology Author [...] be no charge for this consultation. Normal [facility] CONSULT PROGon 04-26-2021 CONSULT PROG HNO ID: [id number] Author: Gavino Morris MD Service: Cardiovascular Medicine Author Type: Physician [...] CC echocardiographic exam performed on 01/18/2017 ([facility], [facility]). CTPE 04/25/2021: IMPRESSION: 1. ?Negative for acute [...] mild LV dysfunction, will ask patient's outpatient [facility] operator specialist communications who manages her HCM to evaluate and consider BB and MARIA T inhibitor -EP to be consulted for the NSVT that were found on ICD interrogation -Still mildly overloaded, will reassess fluid status tomorrow morning for transition to PO diuretics - Exercise stress echo for chest pain Patient seen and discussed with Dr. Morris SIGNATURE: Francisco Erickson APRN.CNP PATIENT NAME: Michelle Mitchell DATE: April 26, 2021 TIME: 2:38 PM PAGER/CONTACT #: [phone] For communication after 5 pm on weekdays and after 12 pm on weekends, please page the following: - [facility] consult : page [phone] - [place] Electrophysiology consult: page [phone] - [facility] Cardiology consult: page [phone] [facility] STAFF PHYSICIAN NOTE OF PERSONAL INVOLVE (more content not included)... Normal [facility] [facility], [place] 022 Cholesterol [Mass/Vol] 149 mg/dL Normal <200 [facility] Comment on above: Performed By: #### B MP, LIPB, CBC ####[place] [address] Cholesterol in HDL [Mass/Vol] 31 mg/dL Low >39 [facility] Comment on above: Performed By: #### B MP, LIPB, CBC ####[place] [address] Cholesterol in LDL [Mass/Vol] 102 mg/dL High <100 [facility] Comment on above: Performed By: #### B MP, LIPB, CBC ####[place] [address] LDL:HDL Ratio 3.29 High <2.54 [facility] Comment on above: Performed By: #### B MP, LIPB, CBC ####[place] [address] Non HDL Cholesterol 118 mg/dL Normal <130 [facility] Comment on above: Performed By: #### B MP, LIPB, CBC ####[place] [address] TC:HDL Ratio 4.81 Normal <5.10 [facility] Comment on above: Performed By: #### B MP, LIPB, CBC ####[place] [address] Triglyceride [Mass/Vol] 82 mg/dL Normal <150 [facility] Comment on above: Performed By: #### B MP, LIPB, CBC ####[place] [address] VLDL Cholesterol 16 mg/dL Normal <30 [facility] Comment on above: Performed By: #### B FRANKLIN DE LA TORRE, CBC ####[facility] [place], [place] [phone] NURSING PROGon 04-26-2021 NURSING PROG HNO ID: [id number] Author: Vance Everett RN Service: ? Author Type: Registered Nurse Type: Nursing Progress Note Filed: 04/26/2021 8:46 PM Note Text: Nursing Progress Note Patient Name: Michelle Mitchell Patient Location: [id number]-6718/10-13 Daily Note: 1934 - Michelle Mitchell, 5 pav 558-2, pt complaining of 8/10 chest pain, states no relief from tylenol. Requesting alternative. Thanks -Devonte [phone] - Michelle Mitchell, 5 pav 558-2, pt states son in car accident, patient leaving AMA when able to pick her up. Thanks -Devonte [phone] - Michelle Mitchell, 5 pav 558-2 pt asking if she can have script for Lasix prior to leaving to be compliant with treatment. Thanks -Devonte [phone] This note was completed by: Vance Everett [facility] NURSING PROG HNO ID: [id number] Author: Kendal Strange RN Service: ? Author Type: Registered Nurse Type: Nursing Progress Note Filed: 04/26/2021 4:23 PM Note Text: Nursing Progress Note Patient Name: Michelle Mitchell Patient Location: RX-[id number]-8270/10-13 0929 Pt sitting up in bed, c/o [...] note was completed by: Kendal Strange Normal [facility] Troponin Ton 04-26-2021 Troponin T.cardiac [Mass/Vol] 0.023 ug/L Normal 0.000-0.02 9 [facility] Comment on above: Performed By: #### C KCKMB, SAULO #### [facility] [address] [place] [phone] CBC and Differentialon 04-25 Abs Baso 0.06 k/uL Normal <0.11 [facility] Comment on above: Performed By: #### T NT, CBCDIF, CMP ####[place] [phone] Abs [place] 0.72 k/uL Normal <0.87 [facility] Comment on above: Performed By: #### T NT, CBCDIF, CMP ####[place] [phone] Abs Neut 7.11 k/uL Normal 1.45-7.50 [facility] Comment on above: Performed By: #### T NT, CBCDIF, CMP ####[address] Absolute nRBC <0.01 Normal <0.01 [facility] Comment on above: Performed By: #### T NT, CBCDIF, CMP ####[place] [phone] Basophils/100 WBC (Bld) 0.6 % Normal [facility] Comment on above: Performed By: #### T NT, CBCDIF, CMP ####[place] [phone] DTYPE Auto Diff Normal [facility] Comment on above: Performed By: #### T NT, CBCDIF, CMP ####[address] Eosinophils (Bld) [#/Vol] 0.10 10*3/uL Normal <0.46 [facility] Comment on above: Performed By: #### T NT, CBCDIF, CMP ####[address] Eosinophils/100 WBC (Bld) 1.0 % Normal [facility] Comment on above: Performed By: #### T NT, CBCDIF, CMP ####[place] [phone] Erythrocyte distribution width (RBC) [Ratio] 13.5 % Normal 11.5-15.0 [facility] Comment on above: Performed By: #### T NT, CBCDIF, CMP ####[place] [phone] Hematocrit (Bld) [Volume fraction] 38.0 % Normal 36.0-46.0 [facility] Comment on above: Performed By: #### T NT, CBCDIF, CMP ####[place] [phone] Hemoglobin (Bld) [Mass/Vol] 11.9 g/dL Normal 11.5-15.5 [facility] Comment on above: Performed By: #### T NT, CBCDIF, CMP ####[place] [phone] Lymphocytes (Bld) [#/Vol] 1.73 10*3/uL Normal 1.00-4.00 [facility] Comment on above: Performed By: #### T NT, CBCDIF, CMP ####[place] [phone] Lymphocytes/100 WBC (Bld) 17.8 % Normal [facility] Comment on above: Performed By: #### T NT, CBCDIF, CMP ####[place] [phone] MCH 30.7 pG Normal 26.0-34.0 [facility] Comment on above: Performed By: #### T NT, CBCDIF, CMP ####[place] [phone] MCHC (RBC) [Mass/Vol] 31.3 g/dL Normal 30.5-36.0 [facility] Comment on above: Performed By: #### T NT, CBCDIF, CMP ####[place] [phone] MCV (RBC) [Entitic vol] 98.2 fL Normal 80.0-100.0 [facility] Comment on above: Performed By: #### T NT, CBCDIF, CMP ####[place] [phone] Monocytes/100 WBC (Bld) 7.4 % Normal [facility] Comment on above: Performed By: #### T NT, CBCDIF, CMP ####[place] [phone] Neutrophils/100 WBC (Bld) 73.2 % Normal [facility] Comment on above: Performed By: #### T NT, CBCDIF, CMP ####[place] [phone] NRBCs 0.0 /100 WBC Normal 0 [facility] Comment on above: Performed By: #### T NT, CBCDIF, CMP ####[place] [phone] Platelet mean volume (Bld) [Entitic vol] 12.5 fL Normal 9.0-12.7 [facility] Comment on above: Performed By: #### T NT, CBCDIF, CMP ####[place] [phone] Platelets (Bld) [#/Vol] 192 10*3/uL Normal 150-400 [facility] Comment on above: Performed By: #### T NT, CBCDIF, CMP ####[place] [phone] RBC (Bld) [#/Vol] 3.87 10*6/uL Low 3.90-5.20 [facility] Comment on above: Performed By: #### T NT, CBCDIF, CMP ####[place] [phone] WBC (Bld) [#/Vol] 9.72 10*3/uL Normal 3.70-11.00 [facility] Comment on above: Performed By: #### T NT, CBCDIF, CMP ####[place] [phone] CK, Total and CKMBon 022 CK [Catalytic activity/Vol] 65 U/L Normal 30-220 [facility] Comment on above: Performed By: #### T NT, CKCKMB ####[facility] [place], [place] [phone] CK MB % CK MB % not reported with CK <100 U/L. Normal 0.0-4.0 [facility] Comment on above: Performed By: #### T NT, CKCKMB ####[facility] [place], [place] [phone] MB 3.5 ng/mL Normal 0.0-8.8 [facility] Comment on above: Performed By: #### T NT, CKCKMB ####[facility] [place], [place] [phone] CONSULTon 04-25-2021 CONSULT HNO ID: [id number] Author: Gavino Morris MD Service: Cardiovascular Medicine Author Type: Physician Type: Consults Filed: 04/25/2021 6:10 PM Note Text: [facility] CARDI[facility]ASCULAR [facility]ICINE CONSULT NOTE (Template ID [id number]) Michelle Mitchell [id number] PRIMARY SERVICE: Internal Medicine CONSULTING SERVICE: Cardiovascular [...] had fluid in her lungs. In the [place] ED noted marginally elevated high sensitivity troponin, concerns for NSTEMI, therefore was transferred to [facility] for further evaluation of symptoms. Has not seen her own operator specialist communications for quite sometime due to covid. Developed [...] PERMANENT TRANSVENOUS PACEMAKER INSERTION 2006 ICD implant, [facility] - ANESTHESIA TUBAL LIGATION/TRANSECTION - APPENDECTOMY 05/05/2014 [...] mL (BD (more content not included)... Normal [facility] Comp Metabolic Panelon 04-25 Albumin [Mass/Vol] 4.1 g/dL Normal 3.5-5.0 [facility] Comment on above: Performed By: #### T NT, CBCDIF, CMP ####[place] [id number] [place], [place] [phone] ALP [Catalytic activity/Vol] 131 U/L High 34-123 [facility] Comment on above: Performed By: #### T NT, CBCDIF, CMP ####[facility] [place] [address] [phone] ALT [Catalytic activity/Vol] 30 U/L Normal 0-45 [facility] Comment on above: Performed By: #### T NT, CBCDIF, CMP ####[place] [phone] Anion gap [Moles/Vol] 12 mmol/L Normal 9-18 [facility] Comment on above: Performed By: #### T NT, CBCDIF, CMP ####[place] [phone] AST [Catalytic activity/Vol] 26 U/L Normal 7-40 [facility] Comment on above: Performed By: #### T NT, CBCDIF, CMP ####[place] [phone] Bilirubin [Mass/Vol] 1.0 mg/dL Normal 0.2-1.3 [facility] Comment on above: Performed By: #### T NT, CBCDIF, CMP ####[place] [phone] Calcium [Mass/Vol] 9.1 mg/dL Normal 8.5-10.5 [facility] Comment on above: Performed By: #### T NT, CBCDIF, CMP ####[place] [phone] Chloride [Moles/Vol] 103 mmol/L Normal 98-110 [facility] Comment on above: Performed By: #### T NT, CBCDIF, CMP ####[place] [phone] CO2 [Moles/Vol] 23 mmol/L Normal 23-32 [facility] Comment on above: Performed By: #### T NT, CBCDIF, CMP ####[place] [phone] Creatinine [Mass/Vol] 0.71 mg/dL Normal 0.70-1.40 [facility] Comment on above: Performed By: #### T NT, CBCDIF, CMP ####[place] [phone] eGFR- Amer. >60 Normal >59 [facility] Comment on above: Performed By: #### T LUISITO BARROW CMP ####[place] [phone] eGFR-All Other Races >60 Normal >59 [facility] Comment on above: Result Comment: eGFR (Estimated [...] website at kidney.org/professionals/kdoqi/gfr_calculator. Performed By: #### T LUISITO BARROW CMP ####[place] [phone] Glucose [Mass/Vol] 92 mg/dL Normal 65-100 [facility] Comment on above: Performed By: #### T PUSHPA CBCNELIF CMP ####[place] [phone] Potassium [Moles/Vol] 3.7 mmol/L Normal 3.5-5.0 [facility] Comment on above: Performed By: #### T PUSHPA CBCNELIF CMP ####[place] [phone] Protein [Mass/Vol] 6.6 g/dL Normal 6.0-8.4 [facility] Comment on above: Performed By: #### T PUSHPA CBCDIF, CMP ####[facility] [place], [place] [phone] Sodium [Moles/Vol] 138 mmol/L Normal 132-148 [facility] Comment on above: Performed By: #### T NT, CBCDIF, CMP ####[facility] [place], [place] [phone] Urea nitrogen [Mass/Vol] 4 mg/dL Low 8-25 [facility] Comment on above: Performed By: #### T NT, CBCDIF, CMP ####[facility] [place], [place] [phone] HISTORY PHYSICALon HISTORY PHYSICAL HNO ID: [id number] Author: Aj Mullins MD Service: Hospital Medicine [...] like sandra elephant is sitting on my chest" and exacerbated by deep inspiration and moving in her bed. No relieving factors were identified. Her symptoms also included dizziness, headache, right jaw pain, and nausea without vomiting. She otherwise denies palpitations, bilateral LE swelling, feeling of hotness, chills, and diarrhea. She works in [employer]. She used to be a smoker of [...] patient was then transferred and admitted to [facility] for further evaluation and management. PAST [...] PERMANENT TRANSVENOUS PACEMAKER INSERTION 2006 ICD implant, [facility] - ANESTHESIA TUBAL LIGATION/TRANSECTION - APPENDECTOMY 05/05/2014 [...] Reported HOCM, (more content not included)... Normal [facility] Hemoglobin A1con 04-25-2021 Glucose [Mass/Vol] 103 mg/dL Normal [facility] Comment on above: Result Comment: eAG: (Estimated average glucose) is a calculated value from HgbA1c and is goodwill representative of the average blood glucose level in the last 2-3 month period. Performed By: #### T SH #### [facility] [address] [place] [phone] #### HBA1C #### [facility] [address] [place], [place] [address] HbA1c (Bld) [Mass fraction] 5.2 % Normal 4.3-5.6 [facility] Comment on above: Result Comment: Amer ican Diabetes Association guidelines indicate that patients with HgbA1c in the range 5.7-6.4% are at increased risk for development of diabetes, and intervention by lifestyle modification may be beneficial. HgbA1c greater or equal to 6.5% is considered diagnostic of diabetes. Performed By: #### T SH #### [place] [address] #### HBA1C #### [facility] [address] [place], [place] [address] NT Pro BNPon 04-25-2021 PRO B Natr Peptide 1979 pg/mL High <125 [facility] Comment on above: Performed By: #### N TBNP #### [place] [address] NURSING PROGon 04-25-2021 NURSING PROG HNO ID: [id number] Author: Vance Everett RN Service: ? Author Type: Registered Nurse Type: Nursing Progress Note Filed: 04/25/2021 9:39 PM Note Text: Nursing Progress Note Patient Name: Michelle Mitchell Patient Location: [place] [address]/[place] [address] 10-13 Daily Note: paged hospitalist Michelle Mitchell, 5 pav 558-2, pt requesting something stronger for pain than Tylenol. Per pt, Susanna withheld morphine d/t low BP, now 115/60. Dontrell -Devonte [phone] Resident requested attempting another dose of tylenol instead of an alternative, and to page back if tylenol ineffective. Tylenol administered. 2127 Michelle Mitchell, 5 pav 558-2, pt given Tylenol an hour ago, still no pain relief, 11/21 per patient. Patient requesting alternative pain medication. Thanks -Devonte [phone] This note was completed by: Vance Everett [facility] NURSING PROG HNO ID: [id number] Author: Kendal Strange RN Service: ? Author Type: Registered Nurse Type: Nursing Progress Note Filed: 04/25/2021 1:22 PM Note Text: Nursing Progress Note Patient Name: Michelle Mitchell Patient Location: JZ-5WTF-8277/10-13 0949 Pt resting in bed, denies dizziness or SOB, however pt stated she had chest pain rated 3/10 at this time. Educated pt regarding updated diet, regular diet ordered, called and requested for pt. 1315 Dr. Mullins at bedside to see pt with this nurse. Pt stated, I got Morphine at [place] and it helped my pain a lot." Dr. Mullins educated pt regarding tests that were ordered or completed and that she is not ordering Morphine due to blood pressure being low and Tylenol will be ordered. 1320 Pt started sobbing once Dr. Mullins left the room and advised her that she was not ordering Morphine. This note was completed by: Kendal Thibodeaux [facility] NURSING PROG HNO ID: [id number] Author: Sabrina Barbosa RN Service: ? Author Type: Registered Nurse Type: Nursing Progress Note Filed: 04/25/2021 6:53 AM Note Text: Nursing Progress Note Patient Name: Michelle Mitchell Patient Location: SG-[id number]-4044/[facility]10-13 Daily Note: Paged hospitalist admit pager " 5PAV 558-2 [place] Michelle. Pt is c/o 8/10 chest/jaw pain. can she get something? thanks, rose ext [phone] Prn nitro was ordered, pt refused. States it does not help her and will give her a migraine and make her feel worse. Pt did receive morphine at [facility] and stated that it helped with her pain then. Morphine is listed on allergy list but she states that it's not a true allergy. Paged hospitalist admit pager " 5PAV rm 558-2 Michelle Mitchell. Pt refusing nitro, had morphine at [facility] says it helped and isn't a true allergy. Rose ext [phone]" This note was completed by: [facility] NURSING PROG HNO ID: [id number] Author: Sabrina Barbosa RN Service: ? Author Type: Registered Nurse Type: Nursing Progress Note Filed: 04/25/2021 6:00 AM Note Text: Nursing Progress Note Patient Name: Michelle Mitchell Patient Location: [place] [address]/[place] [address] 10-13 Transfer Note: Patient transferred into room/unit 558-2 in stable condition. Actions taken: No futher actions taken at this time. Will continue to monitor and check with patient. This note was completed by: [facility] TSHon 04-25-2021 TSH Qn 3.510 m[IU]/L Normal 0.270-4.20 0 [facility] Comment on above: Result Comment: If t he patient is , TSH reference range varies by gestational period: First Trimester (weeks 9-12): 0.180-2.990 mcIU/mL Second Trimester: 0.110-3.980 mcIU/mL Third Trimester: 0.480-4.710 mcIU/mL Bacilio Lay, et al. A Practical Approach for the Verifications and Determination of Site- and Trimester-Specific Reference Intervals for Thyroid Function tests in . Thyroid, 2019:29:3:412-420. Lopez Recio, et al. 2017 Guidelines of the [place] Thyroid Association for the Diagnosis and Management of Thyroid Disease during and the . Thyroid, 2017:27:3:315-389. Performed By: #### T #### [place] [phone] #### HBA1C #### [facility] [address] [place] [phone] Troponin Ton 04-25-2021 Troponin T.cardiac [Mass/Vol] 0.028 ug/L Normal 0.000-0.[address] [place] [address] Comment on above: Performed By: #### T NT #### [place] [phone] Troponin T.cardiac [Mass/Vol] 0.026 ug/L Normal 0.000-0.[address] [place] [address] Comment on above: Performed By: #### T NT ####[phone] Troponin T.cardiac [Mass/Vol] 0.029 ug/L Normal 0.000-0.[address] [place] [address] Comment on above: Performed By: #### T NT, CKCKMB ####[place] [phone] Troponin T.cardiac [Mass/Vol] 0.028 ug/L Normal 0.000-0.[address] [place] [address] Comment on above: Performed By: #### T NT, CBCDIF, CMP ####[place] [phone] XR ANKLE 3V AP/LAT/OBL RTon 11-04-2020 XR [...] No dislocation or acute fracture lucency detected. 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: KIM Transcribe Date/Time: Nov 04 2020 1:46A Dictated by : SHAKIRA LOVETT MD This examination was interpreted and the report reviewed and electronically signed by: SHAKIRA LOVETT MD on Nov 04 2020 1:47AM EST [id number] Normal [facility] Bacteria Bld Culton 09-19-19 21 Bacteria identified Cx Nom (Bld) CULTURE, BLOOD: No growth 5 days Normal [facility] Comment on above: Performed By: #### 6 00-7 #### [facility] CLIA [id number] [address] [place] [address] Bacteria identified Cx Nom (Bld) CULTURE, BLOOD: No growth 5 days Normal [facility] Comment on above: Performed By: #### 6 00-7 #### [facility] CLIA [id number] [address] [place] [address] CBC W Auto Differential pane l (Bld)on 09-18-2020 Basophils (Bld) [#/Vol] 0.03 10*3/uL Normal <0.11 [facility] Comment on above: Order Comment: Speci men Type: BLOOD SPECIMEN Performed By: #### 2 4323-8 #### [facility] CLIA [id number] [address] [place] [address] [place] Basophils/100 WBC (Bld) 0.3 % Normal [facility] Comment on above: Order Comment: Speci men Type: BLOOD SPECIMEN Performed By: #### 2 4323-8 #### [facility] CLIA [id number] [address] [place] [address] [place] Differential cell count method Nom (Bld) Auto Normal [facility] Comment on above: Order Comment: Speci men Type: BLOOD SPECIMEN Performed By: #### 2 4323-8 #### [facility] CLIA [id number] [address] [place] [address] [place] Eosinophils (Bld) [#/Vol] 0.06 10*3/uL Normal <0.46 [facility] Comment on above: Order Comment: Speci men Type: BLOOD SPECIMEN Performed By: #### 2 4323-8 #### [facility] CLIA [id number] [address] [place] [address] [facility] Eosinophils/100 WBC (Bld) 0.7 % Normal [facility] Comment on above: Order Comment: Speci men Type: BLOOD SPECIMEN Performed By: #### 2 4323-8 #### [facility] CLIA [id number] [address] [place] [address] [facility] Erythrocyte distribution width (RBC) [Ratio] 13.2 % Normal 11.5-15.0 [facility] Comment on above: Order Comment: Speci men Type: BLOOD SPECIMEN Performed By: #### 2 4323-8 #### [facility] CLIA [id number] [address] [place] [address] [facility] [place] Hematocrit (Bld) [Volume fraction] 42.4 % Normal 36.0-46.0 [facility] Comment on above: Order Comment: Speci men Type: BLOOD SPECIMEN Performed By: #### 2 4323-8 #### [facility] CLIA [id number] [address] [place] [address] [place] Hemoglobin (Bld) [Mass/Vol] 13.9 g/dL Normal 11.5-15.5 [facility] Comment on above: Order Comment: Speci men Type: BLOOD SPECIMEN Performed By: #### 2 4323-8 #### [facility] CLIA [id number] [address] [place] [address] [place] Lymphocytes (Bld) [#/Vol] 0.53 10*3/uL Low 1.00-4.00 [facility] Comment on above: Order Comment: Speci men Type: BLOOD SPECIMEN Performed By: #### 2 4323-8 #### [facility] CLIA [id number] [address] [place] [address] [place] [facility] Lymphocytes/100 WBC (Bld) 6.1 % Normal [facility] Comment on above: Order Comment: Speci men Type: BLOOD SPECIMEN Performed By: #### 2 4323-8 #### [facility] CLIA [id number] [address] [place] [address] [place] MCH (RBC) [Entitic mass] 30.8 pg Normal 26.0-34.0 [facility] Comment on above: Order Comment: Speci men Type: BLOOD SPECIMEN Performed By: #### 2 4323-8 #### [facility] CLIA [id number] [address] [place] [address] [place] MCHC (RBC) [Mass/Vol] 32.8 g/dL Normal 30.5-36.0 [facility] Comment on above: Order Comment: Speci men Type: BLOOD SPECIMEN Performed By: #### 2 4323-8 #### [facility] CLIA [id number] [address] [place] [address] [place] MCV (RBC) [Entitic vol] 93.8 fL Normal 80.0-100.0 [facility] Comment on above: Order Comment: Speci men Type: BLOOD SPECIMEN Performed By: #### 2 4323-8 #### [facility] CLIA [id number] [address] [place] [address] [place] Monocytes (Bld) [#/Vol] 0.73 10*3/uL Normal <0.87 [facility] Comment on above: Order Comment: Speci men Type: BLOOD SPECIMEN Performed By: #### 2 4323-8 #### [facility] CLIA [id number] [address] [place] [address] [facility] [place] Monocytes/100 WBC (Bld) 8.4 % Normal A [facility] Comment on above: Order Comment: Speci men Type: BLOOD SPECIMEN Performed By: #### 2 4323-8 #### [facility] CLIA [id number] [address] [place] [address] [place] Neutrophils (Bld) [#/Vol] 7.34 10*3/uL Normal 1.45-7.50 [facility] Comment on above: Order Comment: Speci men Type: BLOOD SPECIMEN Performed By: #### 2 4323-8 #### [facility] CLIA [id number] [address] [place] [address] [place] Neutrophils/100 WBC (Bld) 84.5 % Normal [facility] Comment on above: Order Comment: Speci men Type: BLOOD SPECIMEN Performed By: #### 2 4323-8 #### [facility] CLIA [id number] [address] [place] [address] [place] Platelet mean volume (Bld) [Entitic vol] 11.3 fL Normal 9.0-12.7 [facility] Comment on above: Order Comment: Speci men Type: BLOOD SPECIMEN Performed By: #### 2 4323-8 #### [facility] CLIA [id number] [address] [place] [address] [place] Platelets (Bld) [#/Vol] 240 10*3/uL Normal 150-400 [facility] Comment on above: Order Comment: Speci men Type: BLOOD SPECIMEN Performed By: #### 2 4323-8 #### [facility] CLIA [id number] [address] [place] [address] [place] RBC (Bld) [#/Vol] 4.52 10*6/uL Normal 3.90-5.20 [facility] Comment on above: Order Comment: Speci men Type: BLOOD SPECIMEN Performed By: #### 2 4323-8 #### [facility] [place] CLIA [id number] [address] [place] [address] [place] WBC (Bld) [#/Vol] 8.69 10*3/uL Normal 3.70-11.00 [facility] Comment on above: Order Comment: Speci men Type: BLOOD SPECIMEN Performed By: #### 2 4323-8 #### [facility] CLIA [id number] [address] [facility] [place] [address] [facility] Comprehensive metabolic 2000 panelon 09-18-2020 Albumin [Mass/Vol] 4.6 g/dL Normal 3.9-4.9 [facility] Comment on above: Order Comment: Speci men Type: BLOOD SPECIMEN Performed By: #### 2 4323-8 #### [facility] [place] CLIA [id number] [address] [place] [address] [place] ALP [Catalytic activity/Vol] 117 U/L Normal 34-123 [facility] Comment on above: Order Comment: Speci men Type: BLOOD SPECIMEN Performed By: #### 2 4323-8 #### [facility] CLIA [id number] [address] [facility] [place] [address] [place] ALT With P-5'-P [Catalytic activity/Vol] 16 U/L Normal 7-38 [facility] Comment on above: Order Comment: Speci men Type: BLOOD SPECIMEN Performed By: #### 2 4323-8 #### [facility] CLIA [id number] [address] [facility] [place] [address] [place] Anion gap [Moles/Vol] 11 mmol/L Normal 9-18 [facility] Comment on above: Order Comment: Speci men Type: BLOOD SPECIMEN Performed By: #### 2 4323-8 #### [facility] [place] [facility] CLIA [id number] [address] [place] [address] [place] AST With P-5'-P [Catalytic activity/Vol] 15 U/L Normal 13-35 [facility] Comment on above: Order Comment: Speci men Type: BLOOD SPECIMEN Performed By: #### 2 4323-8 #### [facility] [place] [facility] CLIA [id number] [address] [place] [address] [place] Bilirubin [Mass/Vol] 0.5 mg/dL Normal 0.2-1.3 [facility] Comment on above: Order Comment: Speci men Type: BLOOD SPECIMEN Performed By: #### 2 4323-8 #### [facility] CLIA [id number] [address] [facility] [place] [address] [place] Calcium [Mass/Vol] 10.0 mg/dL Normal 8.5-10.2 [facility] Comment on above: Order Comment: Speci men Type: BLOOD SPECIMEN Performed By: #### 2 4323-8 #### [facility] CLIA [id number] [address] [place] [address] [place] Chloride [Moles/Vol] 102 mmol/L Normal 97-105 [facility] Comment on above: Order Comment: Speci men Type: BLOOD SPECIMEN Performed By: #### 2 4323-8 #### [facility] CLIA [id number] [address] [place] [address] [place] CO2 [Moles/Vol] 25 mmol/L Normal 22-30 [facility] Comment on above: Order Comment: Speci men Type: BLOOD SPECIMEN Performed By: #### 2 4323-8 #### [facility] CLIA [id number] [address] [place] [address] [place] Creatinine [Mass/Vol] 0.73 mg/dL Normal 0.58-0.96 [facility] Comment on above: Order Comment: Speci men Type: BLOOD SPECIMEN Performed By: #### 2 4323-8 #### [facility] CLIA [id number] [address] [place] [address] [place] GFR/1.73 sq M.predicted among blacks MDRD (S/P/Bld) [Vol rate/Area] mL/min/{1.73_m2} Normal [facility] Comment on above: Order Comment: Speci men Type: BLOOD SPECIMEN Performed By: #### 2 4323-8 #### [facility] [place] CLIA [id number] [address] [facility] [place] [address] [place] GFR/1.73 sq M.predicted among non-blacks MDRD (S/P/Bld) [Vol rate/Area] mL/min/{1.73_m2} Normal [facility] Comment on above: Order Comment: David [...] GFR. Performed By: #### 2 4323-8 #### [facility] [place] [facility] CLIA [id number] [address] [place] [address] [place] Glucose [Mass/Vol] 94 mg/dL Normal 74-99 [facility] Comment on above: Order Comment: David horton Type: BLOOD SPECIMEN Result Comment: The [place] Diabetes Association (ADA) provides guidance for cutoff [...] Standards of Medical Care in Diabetes 2016, [place] [employer]. Diabetes Care. 2016.39(Suppl 1). Performed By: #### 2 4323-8 #### [facility] [place] [facility] CLIA [id number] [address] [place] [address] [place] Potassium [Moles/Vol] 3.5 mmol/L Low 3.7-5.1 [facility] Comment on above: Order Comment: David horton Type: BLOOD SPECIMEN Performed By: #### 2 4323-8 #### [facility] [place] [facility] CLIA [id number] [address] [place] [address] [place] Protein [Mass/Vol] 7.6 g/dL Normal 6.3-8.0 [facility] Comment on above: Order Comment: Speci men Type: BLOOD SPECIMEN Performed By: #### 2 4323-8 #### [facility] [place] [facility] CLIA [id number] [address] [place] [address] [place] Sodium [Moles/Vol] 138 mmol/L Normal 136-144 [facility] Comment on above: Order Comment: Speci men Type: BLOOD SPECIMEN Performed By: #### 2 4323-8 #### [facility] CLIA [id number] [address] [place] [address] [place] Urea nitrogen [Mass/Vol] 4 mg/dL Low 7-21 [facility] Comment on above: Order Comment: Speci men Type: BLOOD SPECIMEN Performed By: #### 2 4323-8 #### [facility] [place] [facility] CLIA [id number] [address] [place] [address] [place] HCG Preg Ur Qlon 09-18-2020 HCG ( test) Ql (U) Negative Normal Negative [facility] Comment on above: Order Comment: Speci men Type: BLOOD SPECIMEN Result Comment: This test is intended to aid in the early detection of . Very dilute urine samples, as indicated by a low specific gravity, may not contain goodwill representative levels of hCG. This test detects [...] . Performed By: #### 2 4323-8 #### [facility] [place] CLIA [id number] [address] [place] [address] [place] HIGH SENSITIVITY TROPONIN To [...] MACE. Performed By: #### H STNT #### [facility] CLIA [id number] [address] HIGH SENSITIVITY SAULO 13 ng/L High [...] MACE. Performed By: #### H STNT #### [facility] CLIA [id number] [address] [place] Lactate (Bld) [Moles/Vol]on 09-18-2020 Lactate [Moles/Vol] 1.3 mmol/L Normal 0.5-2.2 [facility] Comment on above: Order Comment: Speci men Type: BLOOD SPECIMEN Performed By: #### 2 4323-8 #### [facility] CLIA [id number] [address] [place] [address] [place] RAPID GROUP A STREP RFLX TO CULTon 09-18-2020 S. pyogenes Ag IA Ql (Unsp spec) GROUP A STREP ANTIGEN: Negative Group A Strep Screen Culture negative for Beta Strep Group A Normal [facility] Comment on above: Order Comment: Speci men Type: BLOOD SPECIMEN Performed By: #### 2 4323-8 #### [facility] [place] CLIA [id number] [address] [facility] [place] [facility] [place] [address] [place] Urinalysis complete panel (U )on 09-18-2020 Bilirubin Ql (U) Negative Normal Negative [facility] Comment on above: Order Comment: Speci men Type: BLOOD SPECIMEN Performed By: #### 2 4323-8 #### [facility] [place] CLIA [id number] [address] [facility] [place] [facility] [place] [address] [facility] OF [place] Clarity (Unsp spec) Clear Normal Clear [facility] Comment on above: Order Comment: Speci men Type: BLOOD SPECIMEN Performed By: #### 2 4323-8 #### [facility] CLIA [id number] [address] [facility] [place] [address] [facility] Color (U) Yellow Normal Yellow [facility] Comment on above: Order Comment: Speci men Type: BLOOD SPECIMEN Performed By: #### 2 4323-8 #### [facility] CLIA [id number] [address] [facility] [place] [address] [facility] OF [place] Epithelial cells LM.HPF (Urine sed) [#/Area] Few Normal [facility] Comment on above: Order Comment: Speci men Type: BLOOD SPECIMEN Performed By: #### 2 4323-8 #### [facility] CLIA [id number] [address] [facility] [place] [address] [facility] Glucose Test strip (U) [Mass/Vol] Negative Normal Negative [facility] Comment on above: Order Comment: Speci men Type: BLOOD SPECIMEN Performed By: #### 2 4323-8 #### [facility] CLIA [id number] [address] [facility] [place] [facility] [place] [address] [place] Hemoglobin Ql (U) 2+ Abnormal Negative [facility] Comment on above: Order Comment: Speci men Type: BLOOD SPECIMEN Performed By: #### 2 4323-8 #### [facility] [place] CLIA [id number] [address] [facility] [place] [facility] [place] [address] [place] Ketones Ql (U) Negative Normal Negative [facility] Comment on above: Order Comment: Speci men Type: BLOOD SPECIMEN Performed By: #### 2 4323-8 #### [facility] CLIA [id number] [address] [place] [address] [facility] OF [place] Leukocyte esterase Test strip Ql (U) Negative Normal Negative [facility] Comment on above: Order Comment: Speci men Type: BLOOD SPECIMEN Performed By: #### 2 4323-8 #### [facility] CLIA [id number] [address] [place] [address] [place] Nitrite Ql (U) Negative Normal Negative [facility] Comment on above: Order Comment: Speci men Type: BLOOD SPECIMEN Performed By: #### 2 4323-8 #### [facility] [place] CLIA [id number] [address] [place] [address] [place] pH (U) 7.0 [pH] Normal 5.0-8.0 [facility] Comment on above: Order Comment: Speci men Type: BLOOD SPECIMEN Performed By: #### 2 4323-8 #### [facility] CLIA [id number] [address] [place] [address] [place] Protein (U) [Mass/Vol] Normal [facility] Comment on above: Order Comment: Speci men Type: BLOOD SPECIMEN Result Comment: Visi ble blood causes falsely elevated results for analyte Protein. Due to this limitation, Protein will not be reported for patients whose urine contains visible blood. Performed By: #### 2 4323-8 #### [facility] CLIA [id number] [address] [place] [address] [place] RBC LM.HPF (Urine sed) [#/Area] 0-3 /HPF Normal 0-3 /HPF [facility] Comment on above: Order Comment: Speci men Type: BLOOD SPECIMEN Performed By: #### 2 4323-8 #### [facility] CLIA [id number] [address] [place] [address] [place] Specific gravity (U) [Rel density] 1.015 Normal 1.005-1.03 0 [facility] Comment on above: Order Comment: Speci men Type: BLOOD SPECIMEN Performed By: #### 2 4323-8 #### [facility] CLIA [id number] [address] [place] [address] [facility] Urobilinogen Ql (U) 0.2 EU/dL Normal 0.2-1.0 EU/dL [facility] Comment on above: Order Comment: Speci men Type: BLOOD SPECIMEN Performed By: #### 2 4323-8 #### [facility] CLIA [id number] [address] [place] [address] [facility] WBC LM.HPF (Urine sed) [#/Area] 0-5 /HPF Normal 0-5 /HPF [facility] Comment on above: Order Comment: Speci men Type: BLOOD SPECIMEN Performed By: #### 2 4323-8 #### [facility] CLIA [id number] [address] [place] [address] [facility] OF [place] XR CHEST 1V FRONTALon 2020 [...] of the chest. No acute radiographic abnormality. 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: KIM Transcribe Date/Time: Sep 18 2020 5:24P Dictated by : ASHIA PONCE MD This examination was interpreted and the report reviewed and electronically signed by: ASHIA PONCE MD on Sep 18 2020 5:26PM EST [id number] Normal [facility] Basic metabolic 2000 panelon 04-17-2020 Anion gap [Moles/Vol] 10 mmol/L Normal 9-18 [facility] Comment on above: Order Comment: Speci men Type: BLOOD SPECIMEN Performed By: #### 2 4323-8 #### [facility] CLIA [id number] [address] [facility] [place] [address] [place] Calcium [Mass/Vol] 9.0 mg/dL Normal 8.5-10.2 [facility] Comment on above: Order Comment: Speci men Type: BLOOD SPECIMEN Performed By: #### 2 4323-8 #### [facility] [place] CLIA [id number] [address] [place] [address] [place] Chloride [Moles/Vol] 107 mmol/L High 97-105 [facility] Comment on above: Order Comment: Speci men Type: BLOOD SPECIMEN Performed By: #### 2 4323-8 #### [facility] [place] CLIA [id number] [address] [facility] [place] [address] [place] CO2 [Moles/Vol] 23 mmol/L Normal 22-30 [facility] Comment on above: Order Comment: Speci men Type: BLOOD SPECIMEN Performed By: #### 2 4323-8 #### [facility] [place] CLIA [id number] [address] [place] [address] [place] Creatinine [Mass/Vol] 0.78 mg/dL Normal 0.58-0.96 [facility] Comment on above: Order Comment: Speci men Type: BLOOD SPECIMEN Performed By: #### 2 4323-8 #### [facility] [place] CLIA [id number] [address] [place] [address] [place] GFR/1.73 sq M.predicted among blacks MDRD (S/P/Bld) [Vol rate/Area] mL/min/{1.73_m2} Normal [facility] Comment on above: Order Comment: David horton Type: BLOOD SPECIMEN Performed By: #### 2 4323-8 #### [facility] CLIA [id number] [address] [place] [address] [place] GFR/1.73 sq M.predicted among non-blacks MDRD (S/P/Bld) [Vol rate/Area] mL/min/{1.73_m2} Normal [facility] Comment on above: Order Comment: [facility] Type: BLOOD SPECIMEN Result Comment: eGFR (Estimated [...] GFR. Performed By: #### 2 4323-8 #### [facility] CLIA [id number] [address] [place] [address] [place] Glucose [Mass/Vol] 91 mg/dL Normal 74-99 [facility] Comment on above: Order Comment: [facility] Type: BLOOD SPECIMEN Result Comment: The [place] [employer] Association (ADA) provides guidance for cutoff [...] Standards of Medical Care in Diabetes 2016, [place] [employer]. Diabetes Care. 2016.39(Suppl 1). Performed By: #### 2 4323-8 #### [facility] CLIA [id number] [address] [place] [address] [place] Potassium [Moles/Vol] 3.4 mmol/L Low 3.7-5.1 [facility] Comment on above: Order Comment: Speci men Type: BLOOD SPECIMEN Performed By: #### 2 4323-8 #### [facility] [place] CLIA [id number] [address] [place] [address] [place] [address] [facility] Sodium [Moles/Vol] 140 mmol/L Normal 136-144 [facility] Comment on above: Order Comment: Speci men Type: BLOOD SPECIMEN Performed By: #### 2 4323-8 #### [facility] CLIA [id number] [address] [place] [address] [place] Urea nitrogen [Mass/Vol] 6 mg/dL Low 7-21 [facility] Comment on above: Order Comment: Speci men Type: BLOOD SPECIMEN Performed By: #### 2 4323-8 #### [facility] CLIA [id number] [address] [place] [address] [facility] [place] CBC panel Auto (Bld)on 04-17 Erythrocyte distribution width (RBC) [Ratio] 12.6 % Normal 11.5-15.0 [facility] Comment on above: Order Comment: Speci men Type: BLOOD SPECIMEN Performed By: #### 5 8410-2 #### [facility] CLIA [id number] [address] [place] [address] [facility] Hematocrit (Bld) [Volume fraction] 40.4 % Normal 36.0-46.0 [facility] Comment on above: Order Comment: Speci men Type: BLOOD SPECIMEN Performed By: #### 5 8410-2 #### [facility] CLIA [id number] [address] [place] [address] [place] Hemoglobin (Bld) [Mass/Vol] 13.1 g/dL Normal 11.5-15.5 [facility] Comment on above: Order Comment: Speci men Type: BLOOD SPECIMEN Performed By: #### 5 8410-2 #### [facility] CLIA [id number] [address] [place] [address] [place] MCH (RBC) [Entitic mass] 30.4 pg Normal 26.0-34.0 [facility] Comment on above: Order Comment: Speci men Type: BLOOD SPECIMEN Performed By: #### 5 8410-2 #### [facility] [place] CLIA [id number] [address] [place] [address] [place] MCHC (RBC) [Mass/Vol] 32.4 g/dL Normal 30.5-36.0 [facility] Comment on above: Order Comment: Speci men Type: BLOOD SPECIMEN Performed By: #### 5 8410-2 #### [facility] CLIA [id number] [address] [place] [address] [place] MCV (RBC) [Entitic vol] 93.7 fL Normal 80.0-100.0 [facility] Comment on above: Order Comment: Speci men Type: BLOOD SPECIMEN Performed By: #### 5 8410-2 #### [facility] CLIA [id number] [address] [place] [address] [place] Platelet mean volume (Bld) [Entitic vol] 10.8 fL Normal 9.0-12.7 [facility] Comment on above: Order Comment: Speci men Type: BLOOD SPECIMEN Performed By: #### 5 8410-2 #### [facility] CLIA [id number] [address] [place] [address] [place] Platelets (Bld) [#/Vol] 241 10*3/uL Normal 150-400 [facility] Comment on above: Order Comment: Speci men Type: BLOOD SPECIMEN Performed By: #### 5 8410-2 #### [facility] [place] CLIA [id number] [address] [place] [address] [place] RBC (Bld) [#/Vol] 4.31 10*6/uL Normal 3.90-5.20 [facility] Comment on above: Order Comment: Speci men Type: BLOOD SPECIMEN Performed By: #### 5 8410-2 #### [facility] CLIA [id number] [address] [place], [place] [address] [place] [address] [facility] WBC (Bld) [#/Vol] 11.29 10*3/uL High 3.70-11.00 [facility] Comment on above: Order Comment: Speci men Type: BLOOD SPECIMEN Performed By: #### 5 8410-2 #### [facility] CLIA [id number] [address] D dimer FEU PPP-mCncon 04-17 Fibrin D-dimer FEU (PPP) [Mass/Vol] 310 ng/mL FEU Normal <500 [facility] Comment on above: Order Comment: Speci men Type: BLOOD SPECIMEN Performed By: #### 2 4323-8 #### [facility] CLIA [id number] [address] HCG Preg Ur Qlon 04-17-2020 HCG ( test) Ql (U) Negative Normal Negative [facility] Comment on above: Order Comment: Speci men Type: URINE SPECIMEN Result Comment: This test is intended to aid in the early detection of . Very dilute urine samples, as indicated by a low specific gravity, may not contain goodwill representative levels of hCG. This test detects [...] . Performed By: #### 2 106-3 #### [facility] CLIA [id number] [address] HIGH SENSITIVITY TROPONIN To n 04-17-2020 [...] MACE. Performed By: #### H STNT #### [facility] [place] [facility] CLIA [id number] [address] [place] [address] [facility] HIGH SENSITIVITY SAULO 14 ng/L High <12 [facility] Comment on above: Order Comment: Kianai men Type: BLOOD SPECIMEN Result Comment: When [...] MACE. Performed By: #### 2 4323-8 #### [facility] CLIA [id number] [address] [place] [address] [facility] XR CHEST 1V FRONTALon 2020 [...] Other: - IMPRESSION: No acute radiographic abnormality. 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: KIM Transcribe Date/Time: Apr 16 2020 11:07P Dictated by : VICTOR M STALEY MD This examination was interpreted and the report reviewed and electronically signed by: VICTOR M STALEY MD on Apr 16 2020 11:10PM EST Normal [facility] CORONAVIRUS 2019 BY PCRon CORONAVIRUS 2019,PCR NOT DETECTED Normal Not Detected [facility] Comment on above: Result Comment: [...] patient management decisions. Fact sheet for providers: https://www.fda.gov/media/050664/download Fact sheet for patients: https://www.fda.gov/media/331023/download This test has received FDA Emergency Use Authorization (EUA) and has been verified by [facility] ([facility]). This test is only authorized for the duration of time that circumstances exist to justify the authorization of the emergency use of in vitro diagnostic tests for the detection of SARS-CoV-2 virus and/or diagnosis of COVID-19 infection under section 564(b)(1) of the Act, 21 U.S.C. 360bbb-3(b)(1), unless the authorization is terminated or revoked sooner. [facility] is certified under CLIA-88 as qualified to perform high complexity testing. Testing is performed in the [facility] laboratories located at [address] [place] [address]. Performed By: #### C OV19 #### [address] [place] [address] DATE OF SYMPTOM ONSET [YYYYMMDD]? [id number] Normal [facility] Comment on above: Performed By: #### C OV19 #### [address] [place] [id number] Covid 19 Resultson Covid 19 Results NEGATIVE COVID-[address] [...] You may also be contacted by the [facility] to see if any of your [...] or Naproxen (Aleve) can also be used. Yqir-wjb-moupofx cough and cold medicines can be used according to the instructions on the package. Some wqov-eeu-kpbboiw medicines also contain acetaminophen. Make sure you [...] water are not available, use alcohol-based hand driller multiple spindle. Avoid touching your eyes, nose, and mouth [...] a total of 10 days. Additional resources: [facility] COVID Hotline at 4-884-6RHSITC ( ). COVID-19 Careline at (available 24 hours per day, seven days a week if you or a loved one is experiencing anxiety related to the coronavirus pandemic). Clinical research opportunities: is conducting research studies to develop better testing and treatments for COVID. Do you want any information on how to participate Call [phone]. Websites: hospitals.org or www.CDC.gov Follow My Health / My Care (for other test results): Revised 01/29/2020 Electronic Signatures: Rah Monreal (ADMIN) (Signature pending) Authored Last Updated: 23-Mar-2020 06:43 by Rah Monreal (ADMIN) Normal [facility] CORONAVIRUS 2019 BY PCRon Lab Specimen Source Nasal, Nasopharyngeal Normal [facility] Comment on above: Performed By: #### C OV19 #### [facility] [address] [place] [address] CT CERVICAL SPINE WO IVCONon 12-10-2019 CT [...] No cervical spine fracture or traumatic malalignment. 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: [facility] Transcribe Date/Time: Dec 10 2019 8:59P Dictated by : DEX TOLENTINO MD This examination was interpreted and the report reviewed and electronically signed by: DEX TOLENTINO MD on Dec 10 2019 9:08PM EST Normal [facility] XR CHEST 1V FRONTALon 2019 XR [...] No acute bony abnormality. IMPRESSION:No acute process. 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: [facility] Transcribe Date/Time: Dec 10 2019 9:18P Dictated by : JOEY OVALLES MD This examination was interpreted and the report reviewed and electronically signed by: JOEY OVALLES MD on Dec 10 2019 9:19PM EST Normal [facility] XR SHLDR >/=3V AP/ELENA AP/OTH R [...] normal. Joint spaces are preserved. IMPRESSION:Normal shoulder. 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: [facility] Transcribe Date/Time: Dec 10 2019 9:14P Dictated by : JOEY OVALLES MD This examination was interpreted and the report reviewed and electronically signed by: JOEY OVALLES MD on Dec 10 2019 9:17PM EST Normal [facility] XR THORACIC 3V AP/LAT/SWIMME RSon 12-10-2019 [...] No significant degenerative spondylosis. IMPRESSION:Normal thoracic spine. 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: [facility] Transcribe Date/Time: Dec 10 2019 9:19P Dictated by : JOEY OVALLES MD This examination was interpreted and the report reviewed and electronically signed by: JOEY OVALLES MD on Dec 10 2019 9:21PM EST Normal [facility] HISTORY PHYSICALon 8 HISTORY PHYSICAL HNO ID: [id number]: Nallely Min (Pac) Sudik, PAService: (none)Author Type: Physician AssistantType: HANDPFiled: 08/25/2017 12:58 [...] PAST SURGICAL HISTORY OF 05/24/2014 Laparoscopy, - MD ANESTH,PACEMAKER INSERTION 2006 ICD implant, [facility]- REMOVAL OF OVARY(S) Left 2010 For malignancyPrior [...] and Percocet- Ativan [Lorazepam] Vomiting- Azithromycin Intolerance- [place] Anaphylaxis- Fish Anaphylaxis- Levofloxacin In D5w Swelling, [...] August 25, 2017 : 12:58 PM PAGER: [phone] [facility] PT EDon 08-25-2017 PT ED HNO ID: [id number]: Roxane (Rn) DEUCE Laraervice: (none)Author Type: Registered [...] Roxane Lara RN In Department: PROCEDURES Normal [facility] PT ED HNO ID: [id number]: Arvind (Rn) DEUCE Bahenaervice: NursingAuthor Type: Registered NurseType: Patient EducationFiled: 08/25/2017 12:47 PMNote Text:PRE OP LEARNING ASSESSMENTPROCEDURE/SURG QUINN: GI PROCEDURES: EGDREADINESS TO LEARNCOGNITIVE ABILITY: Alert and orientedMOTIVATION TO LEARN: EagerFAMILY SUPPORT: High - Very involved in pt carePATIENT LEARNS BEST BY: Verbal InstructionFACTORS AFFECTING LEARNING: NonePHYSICAL LIMITATIONS AFFECTING LEARNING: NoneElectronically Signed By: Arvind Bahena RN [facility] SURGICAL PATHOLOGYon 08-25- 018 SURGICAL PATHOLOGY [facility]: [id number] Physician: BALDO KENNEDY FINAL DIAGNOSISAntrum, biopsy - [...] in one cassette.Gross examination performed at [facility], [address] [place], [place] [id number] 08/25/17Patient ID #: [id number] of Report: 08/27/2017Date of Procedure: 08/25/2017Date of Receipt: 08/25/2017Submitted by: BALDO TABBAALocation: AVENDiagnostic interpretation performed at [facility], [address] [place] [address]. Normal [facility] Reference Lab Comment on above: Performed By: #### S ####See report for performing lab information. HOSPon 08-22-2017 HOSP Patient:Dick Mitchell RN: Height:5' 4"(1.626 m)Weight:116 lb (52.617 kg)Outpatient [...] and vomiting [R11.2]Allergies:Morphin eAtivan [Lorazepam]AzithromycinC ucumberFishLevofloxacin In L2wKjklmtpkk [Gabapentin]pickles [Other]ShellfishTigan [Trimethobenzamide-Benzo dick]Ultram [Tramadol]Vicodin [Hydrocodone-Acetaminoph en]Zofran [Ondansetron Hcl (Pf)]Date Verified: 08/25/17Lab ValuesLab Value Units Date High LowPOTA* 3.1 mEq/L 08/05/2017 5.1 3.5HEMA* 41.2 % 08/05/2017 47.0 37.0Progress Notes ([facility] CC):Kwasi Stephens Rt 08/22/2017 11:17 AM Signed Radiology Service Progress NotePATIENT NAME: Michelle MitchellMRN: [id number] OF SERVICE: August 22, 2017TIME: 11:16 AMPATIENT IDENTITY VERIFICATION COMPLETED USING TWO (2) METHODS: Patientconfirmed name verbally and Date of .PATIENT GENDER DATA: Female. status: : No Breastfeedingstatus: NO.PATIENT RELEVANT IMPLANT DATA REVIEWED: Not ApplicableRADIOLOGY DEPARTMENT: General X-ray: Exam(s) Completed: Abdomen X-Ray AbdomenPERIPHERAL IV DATA: Not applicableSIGNED BY: Praveena Traore RtJune 2017 11:16 AMProgress Notes ([facility] REJ):Jacqueline Stevens MA, MA 08/22/2017 10:[address] Aguilera is in regards to our mutual patient Michelle Mitchell who is scheduled gwendolyn EGD on 08/25/2017. Dr. Kennedy is requesting that Ms. Mitchell stop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s prior to procedure.Please advise and route message to:P AVW CORS/SERGIO NURSE [id number] Stevens MA, MA 08/23/2017 8:07 AM SignedJoseph Manjinder Wilkinson ?You 20 hours ago (11:27 AM)Yes may stop for egd (Routing comment) [facility] Vital Signs Date Time Vital Sign Value Performing Clinician Facility 01-14-2025 08:31-0500 Body temperature 96.4 [degF] Estefania Hemphill MD Work Phone: [facility] 01-14-2025 08:31-0500 Diastolic blood pressure 68 mm[Hg] Estefania Hemphill MD Work Phone: [facility] 01-14-2025 08:31-0500 Heart rate 62 /min Estefania Hemphill MD Work Phone: [facility] 01-14-2025 08:31-0500 Respiratory rate 18 /min Estefania Hemphill MD Work Phone: [facility] 01-14-2025 08:31-0500 SaO2% (BldA) [Mass fraction] 99 % Estefania Hemphill MD Work Phone: [facility] 01-14-2025 08:31-0500 Systolic blood pressure 111 mm[Hg] Estefania Hemphill MD Work Phone: [facility] 01-09-2025 06:30-0400 Body height 162.6 cm Estefania Hemphill MD Work Phone: [facility] 01-09-2025 06:30-0400 Body mass index (BMI) [Ratio] 21.77 kg/m2 Estefania Hemphill MD Work Phone: [facility] 01-09-2025 06:30-0400 Body weight 57.52 kg Estefania Hemphill MD Work Phone: [facility] 01-09-2025 04:00-0400 Diastolic blood pressure 50 mm[Hg] Dr. Dex Wilkinson MD Work Phone: [facility] 01-09-2025 04:00-0400 Heart rate 59 /min Dr. Dex Wilkinson MD Work Phone: [facility] 01-09-2025 04:00-0400 Respiratory rate 14 /min Dr. Dex Wilkinson MD Work Phone: [facility] 01-09-2025 04:00-0400 SaO2% (BldA) [Mass fraction] 97 % Dr. Dex Wilkinson MD Work Phone: [facility] 01-09-2025 04:00-0400 Systolic blood pressure 93 mm[Hg] Dr. Dex Wilkinson MD Work Phone: [facility] 01-09-2025 03:30-0400 Body temperature 98.4 [degF] Dr. Dex Wilkinson MD Work Phone: [facility] 01-09-2025 01:18-0400 Body height 162.[address] Dex Wilkinson MD Work Phone: [facility] 01-09-2025 01:18-0400 Body mass index (BMI) [Ratio] 22.4 kg/m2 Dr. Dex Wilkinson MD Work Phone: [facility] 01-09-2025 01:18-0400 Body weight 59.[address] Dex Wilkinson MD Work Phone: [facility] 12-31-2024 12:01-0400 Diastolic blood pressure 70 mm[Hg] Dr. Dex Wilkinson MD Work Phone: [facility] 12-31-2024 12:01-0400 Heart rate 56 /min Dr. Dex Wilkinson MD Work Phone: [facility] 12-31-2024 12:01-0400 Respiratory rate 18 /min Dr. Dex Wilkinson MD Work Phone: [facility] 12-31-2024 12:01-0400 SaO2% (BldA) [Mass fraction] 98 % Dr. Dex Wilkinson MD Work Phone: [facility] 12-31-2024 12:01-0400 Systolic blood pressure 119 mm[Hg] Dr. Dex Wilkinson MD Work Phone: [facility] 12-31-2024 09:02-0400 Body temperature 97.8 [degF] Dr. Dex Wilkinson MD Work Phone: [facility] 12-28-2024 12:02-0400 Body height 162.[address] Dex Wilkinson MD Work Phone: [facility] 12-28-2024 12:02-0400 Body mass index (BMI) [Ratio] 21.4 kg/m2 Dr. Dex Wilkinson MD Work Phone: [facility] 12-28-2024 12:02-0400 Body weight 56.[address] Dex Wilkinson MD Work Phone: [facility] 12-27-2024 19:10-0400 Body temperature 97.2 [degF] Rishabh El MD Work Phone: [facility] 12-27-2024 19:10-0400 Diastolic blood pressure 96 mm[Hg] Rishabh El MD Work Phone: [facility] Comment on above: dr gupta notified of bp 12-27-2024 19:10-0400 Heart rate 87 /min Rishabh El MD Work Phone: [facility] 12-27-2024 19:10-0400 Respiratory rate 18 /min Rishabh El MD Work Phone: [facility] 12-27-2024 19:10-0400 SaO2% (BldA) [Mass fraction] 96 % Rishabh El MD Work Phone: [facility] 12-27-2024 19:10-0400 Systolic blood pressure 155 mm[Hg] Rishabh El MD Work Phone: [facility] Comment on above: dr gupta notified of bp 12-26-2024 23:58-0400 Body height 162.6 cm Rishabh El MD Work Phone: [facility] 12-26-2024 23:58-0400 Body mass index (BMI) [Ratio] 21.97 kg/m2 Rishabh El MD Work Phone: [facility] 12-26-2024 23:58-0400 Body weight 58.06 kg Rishabh El MD Work Phone: [facility] 11-27-2024 23:59-0400 Body temperature 98.2 [degF] Dr. Dex Wilkinson MD Work Phone: [facility] 11-27-2024 23:59-0400 Diastolic blood pressure 57 mm[Hg] Dr. Dex Wilkinson MD Work Phone: [facility] 11-27-2024 23:59-0400 Heart rate 88 /min Dr. Dex Wilkinson MD Work Phone: [facility] 11-27-2024 23:59-0400 Respiratory rate 18 /min Dr. Dex Wilkinson MD Work Phone: [facility] 11-27-2024 23:59-0400 SaO2% (BldA) [Mass fraction] 99 % Dr. Dex Wilkinson MD Work Phone: [facility] 11-27-2024 23:59-0400 Systolic blood pressure 143 mm[Hg] Dr. Dex Wilkinson MD Work Phone: [facility] 11-27-2024 22:49-0400 Body height 162.[address] Dex Wilkinson MD Work Phone: [facility] 11-27-2024 22:49-0400 Body mass index (BMI) [Ratio] 21.7 kg/m2 Dr. Dex Wilkinson MD Work Phone: [facility] 11-27-2024 22:49-0400 Body weight 57.[address] Dex Wilkinson MD Work Phone: [facility] 11-25-2024 18:40-0400 Body temperature 98.6 [degF] Dr. Dex Wilkinson MD Work Phone: [facility] 11-25-2024 18:40-0400 Diastolic blood pressure 57 mm[Hg] Dr. Dex Wilkinson MD Work Phone: [facility] 11-25-2024 18:40-0400 Heart rate 81 /min Dr. Dex Wilkinson MD Work Phone: [facility] 11-25-2024 18:40-0400 Respiratory rate 20 /min Dr. Dex Wilkinson MD Work Phone: [facility] 11-25-2024 18:40-0400 SaO2% (BldA) [Mass fraction] 94 % Dr. Dex Wilkinson MD Work Phone: [facility] 11-25-2024 18:40-0400 Systolic blood pressure 126 mm[Hg] Dr. Dex Wilkinson MD Work Phone: [facility] 11-25-2024 14:42-0400 Body height 162.[address] Dex Wilkinson MD Work Phone: [facility] 11-25-2024 14:42-0400 Body mass index (BMI) [Ratio] 21.9 kg/m2 Dr. Dex Wilkinson MD Work Phone: [facility] 11-25-2024 14:42-0400 Body weight 57.[address] Dex Wilkinson MD Work Phone: [facility] 11-23-2024 15:25-0400 Body temperature 98.6 [degF] Dr. Dex Wilkinson MD Work Phone: [facility] 11-23-2024 15:25-0400 Diastolic blood pressure 68 mm[Hg] Dr. Dex Wilkinson MD Work Phone: [facility] 11-23-2024 15:25-0400 Heart rate 75 /min Dr. Dex Wilkinson MD Work Phone: [facility] 11-23-2024 15:25-0400 Respiratory rate 18 /min Dr. Dex Wilkinson MD Work Phone: [facility] 11-23-2024 15:25-0400 SaO2% (BldA) [Mass fraction] 100 % Dr. Dex Wilkinson MD Work Phone: [facility] 11-23-2024 15:25-0400 Systolic blood pressure 98 mm[Hg] Dr. Dex Wilkinson MD Work Phone: [facility] 11-23-2024 12:38-0400 Body height 162.[address] Dex Wilkinson MD Work Phone: [facility] 11-23-2024 12:38-0400 Body mass index (BMI) [Ratio] 21.9 kg/m2 Dr. Dex Wilkinson MD Work Phone: [facility] 11-23-2024 12:38-0400 Body weight 57.[address] Dex Wilkinson MD Work Phone: [facility] 11-21-2024 10:30-0400 Body height 162.6 cm Radu Kay MD Work Phone: [facility] 11-21-2024 10:30-0400 Body mass index (BMI) [Ratio] 21.63 kg/m2 Radu Kay MD Work Phone: [facility] 11-21-2024 10:30-0400 Body weight 57.15 kg Radu Kay MD Work Phone: [facility] 11-21-2024 10:30-0400 Diastolic blood pressure 45 mm[Hg] Radu Kay MD Work Phone: [facility] 11-21-2024 10:30-0400 Heart rate 73 /min Radu Kay MD Work Phone: [facility] 11-21-2024 10:30-0400 Respiratory rate 16 /min Radu Kay MD Work Phone: [facility] 11-21-2024 10:30-0400 SaO2% (BldA) [Mass fraction] 99 % Radu Kay MD Work Phone: [facility] 11-21-2024 10:30-0400 Systolic blood pressure 115 mm[Hg] Radu Kay MD Work Phone: [facility] 10-17-2024 15:31-0400 Body height 162.[address] Dex Wilkinson MD Work Phone: [facility] 10-17-2024 15:31-0400 Body mass index (BMI) [Ratio] 20.4 kg/m2 Dr. Dex Wilkinson MD Work Phone: [facility] 10-17-2024 15:31-0400 Body weight 53.[address] Dex Wilkinson MD Work Phone: [facility] 10-17-2024 15:31-0400 Diastolic blood pressure 74 mm[Hg] Dr. Dex Wilkinson MD Work Phone: [facility] 10-17-2024 15:31-0400 Heart rate 65 /min Dr. Dex Wilkinson MD Work Phone: [facility] 10-17-2024 15:31-0400 Respiratory rate 16 /min Dr. Dex Wilkinson MD Work Phone: [facility] 10-17-2024 15:31-0400 SaO2% (BldA) [Mass fraction] 97 % Dr. Dex Wilkinson MD Work Phone: [facility] 10-17-2024 15:31-0400 Systolic blood pressure 116 mm[Hg] Dr. Dex Wilkinson MD Work Phone: [facility] 09-23-2024 08:06-0400 Body temperature 97 [degF] Rocky Everett DO Work Phone: [facility] 09-23-2024 08:06-0400 Diastolic blood pressure 78 mm[Hg] Rocky Everett DO Work Phone: [facility] 09-23-2024 08:06-0400 Heart rate 70 /min Rocky Everett DO Work Phone: [facility] 09-23-2024 08:06-0400 Respiratory rate 16 /min Rocky Everett DO Work Phone: [facility] 09-23-2024 08:06-0400 SaO2% (BldA) [Mass fraction] 98 % Rocky Everett DO Work Phone: [facility] 09-23-2024 08:06-0400 Systolic blood pressure 120 mm[Hg] Rocky Everett DO Work Phone: [facility] 09-23-2024 06:07-0400 Body mass index (BMI) [Ratio] 20.28 kg/m2 Rocky Everett DO Work Phone: [facility] 09-23-2024 06:07-0400 Body weight 53.6 kg Rocky Everett DO Work Phone: [facility] 09-21-2024 04:25-0400 Body height 162.6 cm Rocky Everett DO Work Phone: [facility] 09-18-2024 13:12-0400 Body height 162.[address] Dex Wilkinson MD Work Phone: [facility] 09-18-2024 13:12-0400 Diastolic blood pressure 85 mm[Hg] Dr. Dex Wilkinson MD Work Phone: [facility] 09-18-2024 13:12-0400 Heart rate 67 /min Dr. Dex Wilkinson MD Work Phone: [facility] 09-18-2024 13:12-0400 SaO2% (BldA) [Mass fraction] 98 % Dr. Dex Wilkinson MD Work Phone: [facility] 09-18-2024 13:12-0400 Systolic blood pressure 133 mm[Hg] Dr. Dex Wilkinson MD Work Phone: [facility] 09-14-2024 10:19-0400 Heart rate 60 /min Dr. Dex Wilkinson MD Work Phone: [facility] 09-14-2024 09:00-0400 Body temperature 97.3 [degF] Dr. Dex Wilkinson MD Work Phone: [facility] 09-14-2024 09:00-0400 Diastolic blood pressure 84 mm[Hg] Dr. Dex Wilkinson MD Work Phone: [facility] 09-14-2024 09:00-0400 Respiratory rate 17 /min Dr. Dex Wilkinson MD Work Phone: [facility] 09-14-2024 09:00-0400 SaO2% (BldA) [Mass fraction] 99 % Dr. Dex Wilkinson MD Work Phone: [facility] 09-14-2024 09:00-0400 Systolic blood pressure 119 mm[Hg] Dr. Dex Wilkinson MD Work Phone: [facility] 09-14-2024 06:00-0400 Body mass index (BMI) [Ratio] 24.5 kg/m2 Dr. Dex Wilkinson MD Work Phone: [facility] 09-14-2024 06:00-0400 Body weight 64.[address] Dex Wilkinson MD Work Phone: [facility] 09-12-2024 00:26-0400 Body height 162.[address] Dex Wilkinson MD Work Phone: [facility] 09-11-2024 23:27-0400 Body temperature 98 [degF] Dr. Dex Wilkinson MD Work Phone: [facility] 09-11-2024 23:27-0400 Diastolic blood pressure 95 mm[Hg] Dr. Dex Wilkinson MD Work Phone: [facility] 09-11-2024 23:27-0400 Heart rate 78 /min Dr. Dex Wilkinson MD Work Phone: [facility] 09-11-2024 23:27-0400 Respiratory rate 16 /min Dr. Dex Wilkinson MD Work Phone: [facility] 09-11-2024 23:27-0400 SaO2% (BldA) [Mass fraction] 99 % Dr. Dex Wilkinson MD Work Phone: [facility] 09-11-2024 23:27-0400 Systolic blood pressure 131 mm[Hg] Dr. Dex Wilkinson MD Work Phone: [facility] 09-11-2024 17:19-0400 Body height 162.[address] Dex Wilkinson MD Work Phone: [facility] 09-11-2024 17:19-0400 Body mass index (BMI) [Ratio] 21.6 kg/m2 Dr. Dex Wilkinson MD Work Phone: [facility] 09-11-2024 17:19-0400 Body weight 57.[address] Dex Wilkinson MD Work Phone: [facility] 08-27-2024 12:03-0400 Diastolic blood pressure 75 mm[Hg] Dr. Dex Wilkinson MD Work Phone: [facility] 08-27-2024 12:03-0400 Heart rate 63 /min Dr. Dex Wilkinson MD Work Phone: [facility] 08-27-2024 12:03-0400 Respiratory rate 18 /min Dr. Dex Wilkinson MD Work Phone: [facility] 08-27-2024 12:03-0400 SaO2% (BldA) [Mass fraction] 96 % Dr. Dex Wilkinson MD Work Phone: [facility] 08-27-2024 12:03-0400 Systolic blood pressure 134 mm[Hg] Dr. Dex Wilkinson MD Work Phone: [facility] 08-24-2024 15:22-0400 Body temperature 97.9 [degF] Dr. Dex Wilkinson MD Work Phone: [facility] 08-24-2024 15:22-0400 Diastolic blood pressure 61 mm[Hg] Dr. Dex Wilkinson MD Work Phone: [facility] 08-24-2024 15:22-0400 Heart rate 54 /min Dr. Dex Wilkinson MD Work Phone: [facility] 08-24-2024 15:22-0400 Respiratory rate 16 /min Dr. Dex Wilkinson MD Work Phone: [facility] 08-24-2024 15:22-0400 SaO2% (BldA) [Mass fraction] 99 % Dr. Dex Wilkinson MD Work Phone: [facility] 08-24-2024 15:22-0400 Systolic blood pressure 103 mm[Hg] Dr. Dex Wilkinson MD Work Phone: [facility] 08-22-2024 08:40-0400 Inhaled oxygen flow rate 97 L/min Dr. Dex Wilkinson MD Work Phone: [facility] 08-21-2024 16:39-0400 Body height 162.[address] Dex Wilkinson MD Work Phone: [facility] 08-21-2024 16:39-0400 Body mass index (BMI) [Ratio] 21.7 kg/m2 Dr. Dex Wilkinson MD Work Phone: [facility] 08-21-2024 16:39-0400 Body weight 57.[address] Dex Wilkinson MD Work Phone: [facility] 08-20-2024 18:00-0400 Body temperature 97.8 [degF] Dr. Dex Wilkinson MD Work Phone: [facility] 08-20-2024 18:00-0400 Diastolic blood pressure 88 mm[Hg] Dr. Dex Wilkinson MD Work Phone: [facility] 08-20-2024 18:00-0400 Heart rate 63 /min Dr. Dex Wilkinson MD Work Phone: [facility] 08-20-2024 18:00-0400 Respiratory rate 18 /min Dr. Dex Wilkinson MD Work Phone: [facility] 08-20-2024 18:00-0400 SaO2% (BldA) [Mass fraction] 100 % Dr. Dex Wilkinson MD Work Phone: [facility] 08-20-2024 18:00-0400 Systolic blood pressure 136 mm[Hg] Dr. Dex Wilkinson MD Work Phone: [facility] 08-20-2024 14:16-0400 Body height 162.[address] Dex Wilkinson MD Work Phone: [facility] 08-20-2024 14:16-0400 Body mass index (BMI) [Ratio] 22.2 kg/m2 Dr. Dex Wilkinson MD Work Phone: [facility] 08-20-2024 14:16-0400 Body weight 58.[address] Dex Wilkinson MD Work Phone: [facility] 08-15-2024 10:57-0400 Body height 162.6 cm Radu Kay MD Work Phone: [facility] 08-15-2024 10:57-0400 Body mass index (BMI) [Ratio] 21.7 kg/m2 Radu Kay MD Work Phone: [facility] 08-15-2024 10:57-0400 Body weight 57.34 kg Radu Kay MD Work Phone: [facility] 08-15-2024 10:57-0400 Diastolic blood pressure 59 mm[Hg] Radu Kay MD Work Phone: [facility] 08-15-2024 10:57-0400 Heart rate 65 /min Radu Kay MD Work Phone: [facility] 08-15-2024 10:57-0400 Respiratory rate 16 /min Radu Kay MD Work Phone: [facility] 08-15-2024 10:57-0400 SaO2% (BldA) [Mass fraction] 96 % Radu Kay MD Work Phone: [facility] 08-15-2024 10:57-0400 Systolic blood pressure 120 mm[Hg] Radu Kay MD Work Phone: [facility] 08-11-2024 13:41-0400 Body temperature 97.8 [degF] Dr. Dex Wilkinson MD Work Phone: [facility] 08-11-2024 13:41-0400 Diastolic blood pressure 76 mm[Hg] Dr. Dex Wilkinson MD Work Phone: [facility] 08-11-2024 13:41-0400 Heart rate 64 /min Dr. Dex Wilkinson MD Work Phone: [facility] 08-11-2024 13:41-0400 Respiratory rate 16 /min Dr. Dex Wilkinson MD Work Phone: [facility] 08-11-2024 13:41-0400 SaO2% (BldA) [Mass fraction] 97 % Dr. Dex Wilkinson MD Work Phone: [facility] 08-11-2024 13:41-0400 Systolic blood pressure 105 mm[Hg] Dr. Dex Wilkinson MD Work Phone: [facility] 08-11-2024 10:27-0400 Body height 162.[address] Dex Wilkinson MD Work Phone: [facility] 08-11-2024 10:27-0400 Body mass index (BMI) [Ratio] 20.7 kg/m2 Dr. Dex Wilkinson MD Work Phone: [facility] 08-11-2024 10:27-0400 Body weight 54.[address] Dex Wilkinson MD Work Phone: [facility] 07-25-2024 16:43-0400 Diastolic blood pressure 57 mm[Hg] [facility] 07-25-2024 16:43-0400 Heart rate 61 /min [facility] 07-25-2024 16:43-0400 Respiratory rate 18 /min [facility] 07-25-2024 16:43-0400 SaO2% (BldA) [Mass fraction] 95 % [facility] 07-25-2024 16:43-0400 Systolic blood pressure 110 mm[Hg] [facility] 07-25-2024 15:04-0400 Body temperature 98.2 [degF] [facility] 07-24-2024 08:20-0400 Inhaled oxygen flow rate 2 L/min Dr. Dex Wilkinson MD Work Phone: [facility] 07-24-2024 08:20-0400 SaO2% (BldA) [Mass fraction] 96 % Dr. Dex Wilkinson MD Work Phone: [facility] 07-24-2024 07:41-0400 Body temperature 97.6 [degF] Dr. Dex Wilkinson MD Work Phone: [facility] 07-24-2024 07:41-0400 Diastolic blood pressure 79 mm[Hg] Dr. Dex Wilkinson MD Work Phone: [facility] 07-24-2024 07:41-0400 Heart rate 62 /min Dr. Dex Wilkinson MD Work Phone: [facility] 07-24-2024 07:41-0400 Respiratory rate 17 /min Dr. Dex Wilkinson MD Work Phone: [facility] 07-24-2024 07:41-0400 Systolic blood pressure 126 mm[Hg] Dr. Dex Wilkinson MD Work Phone: [facility] 07-24-2024 06:00-0400 Body mass index (BMI) [Ratio] 22.8 kg/m2 Dr. Dex Wilkinson MD Work Phone: [facility] 07-24-2024 06:00-0400 Body weight 60.[address] Dex Wilkinson MD Work Phone: [facility] 07-21-2024 09:02-0400 Body height 162.[address] Dex Wilkinson MD Work Phone: [facility] 07-20-2024 23:38-0400 Body temperature 98.2 [degF] Dr. Dex Wilkinson MD Work Phone: [facility] 07-20-2024 23:38-0400 Diastolic blood pressure 100 mm[Hg] Dr. Dex Wilkinson MD Work Phone: [facility] 07-20-2024 23:38-0400 Heart rate 70 /min Dr. Dex Wilkinson MD Work Phone: [facility] 07-20-2024 23:38-0400 Respiratory rate 15 /min Dr. Dex Wilkinson MD Work Phone: [facility] 07-20-2024 23:38-0400 SaO2% (BldA) [Mass fraction] 99 % Dr. Dex Wilkinson MD Work Phone: [facility] 07-20-2024 23:38-0400 Systolic blood pressure 133 mm[Hg] Dr. Dex Wilkinson MD Work Phone: [facility] 07-20-2024 18:57-0400 Body height 162.[address] Dex Wilkinson MD Work Phone: [facility] 07-20-2024 18:57-0400 Body mass index (BMI) [Ratio] 23.6 kg/m2 Dr. Dex Wilkinson MD Work Phone: [facility] 07-20-2024 18:57-0400 Body weight 62.[address] Dex Wilkinson MD Work Phone: [facility] 07-12-2024 12:25-0400 Body temperature 97.4 [degF] Dr. Dex Wilkinson MD Work Phone: [facility] 07-12-2024 12:25-0400 Diastolic blood pressure 69 mm[Hg] Dr. Dex Wilkinson MD Work Phone: [facility] 07-12-2024 12:25-0400 Heart rate 60 /min Dr. Dex Wilkinson MD Work Phone: [facility] 07-12-2024 12:25-0400 Respiratory rate 16 /min Dr. Dex Wilkinson MD Work Phone: [facility] 07-12-2024 12:25-0400 SaO2% (BldA) [Mass fraction] 98 % Dr. Dex Wilkinson MD Work Phone: [facility] 07-12-2024 12:25-0400 Systolic blood pressure 103 mm[Hg] Dr. Dex Wilkinson MD Work Phone: [facility] 07-12-2024 10:17-0400 Body mass index (BMI) [Ratio] 21.5 kg/m2 Dr. Dex Wilkinson MD Work Phone: [facility] 07-12-2024 10:17-0400 Body weight [address] Dex Wilkinson MD Work Phone: [facility] 07-10-2024 07:16-0400 Body mass index (BMI) [Ratio] 21.6 kg/m2 Dr. Dex Wilkinson MD Work Phone: [facility] 07-10-2024 07:16-0400 Body weight 57.[address] Dex Wilkinson MD Work Phone: [facility] 07-10-2024 07:16-0400 Diastolic blood pressure 83 mm[Hg] Dr. Dex Wilkinson MD Work Phone: [facility] 07-10-2024 07:16-0400 Heart rate 70 /min Dr. Dex Wilkinson MD Work Phone: [facility] 07-10-2024 07:16-0400 Respiratory rate 16 /min Dr. Dex Wilkinson MD Work Phone: [facility] 07-10-2024 07:16-0400 SaO2% (BldA) [Mass fraction] 98 % Dr. Dex Wilkinson MD Work Phone: [facility] 07-10-2024 07:16-0400 Systolic blood pressure 134 mm[Hg] Dr. Dxe Wilkinson MD Work Phone: [facility] 07-03-2024 17:55-0400 Body temperature 98.2 [degF] Dr. Dex Wilkinson MD Work Phone: [facility] 07-03-2024 17:55-0400 Diastolic blood pressure 93 mm[Hg] Dr. Dex Wilkinson MD Work Phone: [facility] [facility] 07-03-2024 17:55-0400 Heart rate 68 /min Dr. Dex Wilkinson MD Work Phone: [facility] 07-03-2024 17:55-0400 Respiratory rate 19 /min Dr. Dex Wilkinson MD Work Phone: [facility] 07-03-2024 17:55-0400 SaO2% (BldA) [Mass fraction] 99 % Dr. Dex Wilkinson MD Work Phone: [facility] 07-03-2024 17:55-0400 Systolic blood pressure 142 mm[Hg] Dr. Dex Wilkinson MD Work Phone: [facility] 07-03-2024 13:30-0400 Body mass index (BMI) [Ratio] 22.9 kg/m2 Dr. Dex Wilkinson MD Work Phone: [facility] 07-03-2024 13:30-0400 Body weight 60.[address] Dex Wilkinson MD Work Phone: [facility] 07-01-2024 23:24-0400 Body temperature 97.9 [degF] Dr. Dex Wilkinson MD Work Phone: [facility] 07-01-2024 23:24-0400 Diastolic blood pressure 100 mm[Hg] Dr. Dex Wilkinson MD Work Phone: [facility] 07-01-2024 23:24-0400 Heart rate 70 /min Dr. Dex Wilkinson MD Work Phone: [facility] 07-01-2024 23:24-0400 Respiratory rate 17 /min Dr. Dex Wilkinson MD Work Phone: [facility] 07-01-2024 23:24-0400 SaO2% (BldA) [Mass fraction] 99 % Dr. Dex Wilkinson MD Work Phone: [facility] 07-01-2024 23:24-0400 Systolic blood pressure 136 mm[Hg] Dr. Dex Wilkinson MD Work Phone: [facility] 07-01-2024 19:52-0400 Body height 162.[address] Dex Wilkinson MD Work Phone: [facility] 07-01-2024 19:52-0400 Body mass index (BMI) [Ratio] 22 kg/m2 Dr. Dex Wilkinson MD Work Phone: [facility] 07-01-2024 19:52-0400 Body weight 58.[address] Dex Wilkinson MD Work Phone: [facility] 05-11-2024 23:42-0500 Body mass index (BMI) [Ratio] 21.5 kg/m2 Dr. Dex Wilkinson MD Work Phone: [facility] 05-11-2024 23:42-0500 Body temperature 98.2 [degF] Dr. Dex Wilkinson MD Work Phone: [facility] 05-11-2024 23:42-0500 Body weight 56.[address] Dex Wilkinson MD Work Phone: [facility] 05-11-2024 23:42-0500 Diastolic blood pressure 105 mm[Hg] Dr. Dex Wilkinson MD Work Phone: [facility] 05-11-2024 23:42-0500 Heart rate 105 /min Dr. Dex Wilkinson MD Work Phone: [facility] 05-11-2024 23:42-0500 Respiratory rate 20 /min Dr. Dex Wilkinson MD Work Phone: [facility] 05-11-2024 23:42-0500 SaO2% (BldA) [Mass fraction] 100 % Dr. Dex Wilkinson MD Work Phone: [facility] 05-11-2024 23:42-0500 Systolic blood pressure 169 mm[Hg] Dr. Dex Wilkinson MD Work Phone: [facility] 10-31-2023 10:45-0400 Diastolic Blood Pressure Non-Invasive 60 mm[Hg] DR VICTOR M ORTIZ MD [facility] 10-31-2023 10:45-0400 Heart rate 65 /min DR VICTOR M ORTIZ MD [facility] 10-31-2023 10:45-0400 Respiratory rate 20 /min DR VICTOR M ORTIZ MD [facility] 10-31-2023 10:45-0400 Systolic Blood Pressure Non-Invasive 95 mm[Hg] DR VICTOR M ORTIZ MD [facility] 10-31-2023 10:41-0400 Diastolic Blood Pressure Non-Invasive 54 mm[Hg] DR VICTOR M ORTIZ MD [facility] 10-31-2023 10:41-0400 Heart rate 65 /min DR VICTOR M ORTIZ MD [facility] 10-31-2023 10:41-0400 Respiratory rate 24 /min DR VICTOR M ORTIZ MD [facility] 10-31-2023 10:41-0400 Systolic Blood Pressure Non-Invasive 93 mm[Hg] DR VICTOR M ORTIZ MD [facility] 10-31-2023 10:35-0400 Diastolic Blood Pressure Non-Invasive 52 mm[Hg] DR VICTOR M ORTIZ MD [facility] 10-31-2023 10:35-0400 Heart rate 67 /min DR VICTOR M ORTIZ MD [facility] 10-31-2023 10:35-0400 Respiratory rate 24 /min DR VICTOR M ORTIZ MD [facility] 10-31-2023 10:35-0400 Systolic Blood Pressure Non-Invasive 89 mm[Hg] DR VICTOR M ORTIZ MD [facility] 10-31-2023 10:30-0400 Body height [address] VICTOR M ORTIZ MD [facility] 10-31-2023 10:30-0400 Body weight [address] VICTOR M ORTIZ MD [facility] 10-31-2023 10:30-0400 Body weight 20.44 kg/m2 DR VICTORM ORTIZ MD [facility] 10-31-2023 10:25-0400 Respiratory Rate - Anes 28 br/min DR VICTOR M ORTIZ MD [facility] 10-31-2023 10:20-0400 Respiratory Rate - Anes 40 br/min DR VICTOR M ORTIZ MD [facility] 10-31-2023 10:15-0400 Respiratory Rate - Anes 30 br/min DR VICTOR M ORTIZ MD [facility] 10-31-2023 10:04-0400 Body height [address] VICTOR M ORTIZ MD [facility] 10-31-2023 10:04-0400 Body temperature 97.88 [degF] DR VICTOR M ORTIZ MD [facility] 10-31-2023 10:04-0400 Body weight [address] VICTOR M ORTIZ MD [facility] 10-31-2023 10:04-0400 Heart rate 68 /min DR VICTOR M ORTIZ MD [facility] 07-04-2023 23:00-0400 Body temperature 97.8 [degF] [facility] 07-04-2023 23:00-0400 Diastolic blood pressure 89 mm[Hg] [facility] 07-04-2023 23:00-0400 Heart rate 78 /min [facility] 07-04-2023 23:00-0400 Respiratory rate 16 /min [facility] 07-04-2023 23:00-0400 SaO2% (BldA) [Mass fraction] 99 % [facility] 07-04-2023 23:00-0400 Systolic blood pressure 122 mm[Hg] [facility] 07-04-2023 19:59-0400 Body height 162.56 cm [facility] 07-04-2023 19:59-0400 Body mass index (BMI) [Ratio] 21.9 kg/m2 [facility] 07-04-2023 19:59-0400 Body weight 57.92 kg [facility] 12-26-2022 01:43-0400 Heart rate 75 /min [facility] 12-26-2022 01:43-0400 Respiratory rate 15 /min [facility] 12-26-2022 01:43-0400 SaO2% (BldA) [Mass fraction] 98 % [facility] 12-26-2022 00:00-0400 Diastolic blood pressure 77 mm[Hg] [facility] 12-26-2022 00:00-0400 Systolic blood pressure 129 mm[Hg] [facility] 12-25-2022 21:20-0400 Body height 162.56 cm [facility] 12-25-2022 21:20-0400 Body mass index (BMI) [Ratio] 21.1 kg/m2 [facility] 12-25-2022 21:20-0400 Body temperature 97.9 [degF] [facility] 12-25-2022 21:20-0400 Body weight 55.8 kg [facility] 03-09-2022 10:45-0500 Respiratory rate 16 /min [facility] Work Phone: 03-09-2022 09:19-0500 Body height 162.56 cm [facility] Work Phone: 03-09-2022 09:19-0500 Body mass index (BMI) [Ratio] 21.2 kg/m2 [facility] Work Phone: 03-09-2022 09:19-0500 Body temperature 97.8 [degF] [facility] Work Phone: 03-09-2022 09:19-0500 Body weight 56.24 kg [facility] Work Phone: 03-09-2022 09:19-0500 Diastolic blood pressure 68 mm[Hg] [facility] Work Phone: 03-09-2022 09:19-0500 Heart rate 86 /min [facility] Work Phone: 03-09-2022 09:19-0500 SaO2% (BldA) [Mass fraction] 100 % [facility] Work Phone: 03-09-2022 09:19-0500 Systolic blood pressure 119 mm[Hg] [facility] Work Phone: 12-17-2021 03:42-0400 Diastolic blood pressure 67 mm[Hg] [facility] Work Phone: 12-17-2021 03:42-0400 Heart rate 70 /min [facility] Work Phone: 12-17-2021 03:42-0400 Respiratory rate 18 /min [facility] Work Phone: 12-17-2021 03:42-0400 SaO2% (BldA) [Mass fraction] 97 % [facility] Work Phone: 12-17-2021 03:42-0400 Systolic blood pressure 98 mm[Hg] [facility] Work Phone: 12-16-2021 22:32-0400 Body height 162.56 cm [facility] Work Phone: 12-16-2021 22:32-0400 Body mass index (BMI) [Ratio] 21.4 kg/m2 [facility] Work Phone: 12-16-2021 22:32-0400 Body temperature 98.5 [degF] [facility] Work Phone: 12-16-2021 22:32-0400 Body weight 56.69 kg [facility] Work Phone: 11-13-2021 17:52-0400 Respiratory rate 16 /min [facility] Work Phone: 11-13-2021 15:41-0400 Body height 162.56 cm [facility] Work Phone: 11-13-2021 15:41-0400 Body mass index (BMI) [Ratio] 21.2 kg/m2 [facility] Work Phone: 11-13-2021 15:41-0400 Body temperature 97.6 [degF] [facility] Work Phone: 11-13-2021 15:41-0400 Body weight 56.24 kg [facility] Work Phone: 11-13-2021 15:41-0400 Diastolic blood pressure 70 mm[Hg] [facility] Work Phone: 11-13-2021 15:41-0400 Heart rate 88 /min [facility] Work Phone: 11-13-2021 15:41-0400 SaO2% (BldA) [Mass fraction] 98 % [facility] Work Phone: 11-13-2021 15:41-0400 Systolic blood pressure 128 mm[Hg] [facility] Work Phone: 11-02-2021 22:04-0400 Diastolic blood pressure 78 mm[Hg] [facility] Work Phone: 11-02-2021 22:04-0400 Heart rate 98 /min [facility] Work Phone: 11-02-2021 22:04-0400 Respiratory rate 17 /min [facility] Work Phone: 11-02-2021 22:04-0400 SaO2% (BldA) [Mass fraction] 98 % [facility] Work Phone: 11-02-2021 22:04-0400 Systolic blood pressure 130 mm[Hg] [facility] Work Phone: 11-02-2021 20:56-0400 Body height 162.56 cm [facility] Work Phone: 11-02-2021 20:56-0400 Body mass index (BMI) [Ratio] 20.5 kg/m2 [facility] Work Phone: 11-02-2021 20:56-0400 Body temperature 98 [degF] [facility] Work Phone: 11-02-2021 20:56-0400 Body weight 54.43 kg [facility] Work Phone: Encounters Encounter Date Encounter Type Care Provider Facility Start: 01-14-2025 ambulatory [facility] Start: 01-12-2025 End: 01-15-2025 Evaluation and management of inpatient [facility] Start: 01-12-2025 End: 01-12-2025 Evaluation and management of inpatient Par Cr Nonv1 Ecg Resource [facility] Comment on above: ACS (acute coronary syndrome) (Multi) Start: 01-11-2025 End: 01-14-2025 Evaluation and management of inpatient [facility] Start: 01-11-2025 End: 01-11-2025 Evaluation and management of inpatient Par Cr Nonv1 Ecg Resource [facility] Comment on above: ACS (acute coronary syndrome) (Multi) Start: 01-09-2025 End: 01-14-2025 Encounter for other specified special examinations [facility] Start: 01-09-2025 End: 01-14-2025 Evaluation and management of inpatient Estefania Hemphill MD Work Phone: [facility] 9 Comment on above: Defibrillator discha rge (Primary Dx); Atrial fib/flutter, transient (Multi); Cardiomyopathy, hypertrophic nonobstructive (Multi); HFrEF (heart failure with reduced ejection fraction) (Multi); Encounter for other specified special examinations; C. difficile colitis Start: 01-09-2025 End: 01-14-2025 Patient encounter status Estefania Hemphill MD Work Phone: [facility] Work Phone: Start: 01-09-2025 Evaluation and management of inpatient [facility] Start: 01-09-2025 End: 01-09-2025 Emergency department patient visit Dex Wilkinson Facility:[facility] Start: 12-31-2024 Dr. Emerson Sierra MD -[facility] Work Phone: Start: 12-30-2024 Dr. Emerson Sierra MD -[facility] Work Phone: Start: 12-29-2024 Dr. Emerson Sierra MD -[facility] Work Phone: Start: 12-28-2024 Dr. Carlos Ashford MD -[facility] Work Phone: Start: 12-28-2024 End: 12-31-2024 ambulatory Carlos Ashford Facility:[facility] Start: 12-28-2024 End: 12-31-[address] Dex Wilkinson MD Work Phone: -Progressive Care Unit Start: 12-28-2024 End: 12-31-2024 Dr. Emerson Sierra MD -[facility] Work Phone: Start: 12-27-2024 End: 12-27-2024 ambulatory S[facility] Start: 12-27-2024 End: 12-27-2024 Patient encounter procedure Suman Coburn Clinical [facility] Start: 12-26-2024 End: 12-27-2024 ambulatory DEX Dunbar [facility] Start: 12-26-2024 End: 12-27-2024 Evaluation and management of inpatient Rishabh El MD Work Phone: [facility] 3 Comment on above: Chest pain, unspecif ied type (Primary Dx); ICD (implantable cardioverter-defibrillator) in place; Cardiomyopathy, hypertrophic nonobstructive (Multi); Obstructive hypertrophic cardiomyopathy (Multi) Start: 12-26-2024 ambulatory RISHABH EL [facility] Start: 12-26-2024 End: 12-26-2024 Evaluation and management of inpatient DEX WILKINSON Facility:[facility] Start: 12-26-2024 End: 12-26-[address] Dex Wilkinson MD Work Phone: -[facility] Start: 12-26-2024 End: 12-26-2024 Dr. Jose Francisco Santamaria MD -[facility] Work Phone: Start: 12-19-2024 ambulatory Dex Cohn ty:[facility] Start: 12-12-2024 End: 12-12-2024 Quangyunior Myles DO -[facility] Work Phone: Start: 12-12-2024 End: 12-12-[address] Dex Wilkinson MD Work Phone: -[facility] Start: 12-12-2024 End: 12-12-2024 ambulatory Quang Yantis Facility:[facility] Start: 11-27-2024 End: 11-28-2024 Dr. Dex Wilkinson MD Work Phone: -Emergency Department Work Phone: Start: 11-27-2024 End: 11-28-2024 Emergency department patient visit Dr. Dex Wilkinson MD Work Phone: -Emergency Department Start: 11-27-2024 End: 11-27-2024 ambulatory Anabell Winters RN [facility] Start: 11-27-2024 End: 11-27-2024 Patient encounter procedure Anabell Winters RN [facility] Start: 11-25-2024 End: 11-25-2024 Dr. Dex Wilkinson MD Work Phone: -Emergency Department Work Phone: Start: 11-25-2024 End: 11-25-2024 Emergency department patient visit Dr. Dex Wilkinson MD Work Phone: -Emergency Department Start: 11-23-2024 ambulatory Quangtreva Myles [facility] Start: 11-23-2024 Quang Friend DO -[facility] Start: 11-23-2024 End: 11-23-2024 [facility] DO -Endoscopy Work Phone: Start: 11-23-2024 End: 11-23-[address] Dex Wilkinson MD Work Phone: -Endoscopy Start: 11-21-2024 End: 11-21-2024 Office outpatient visit 40 minutes Radu Kay MD Work Phone: [facility] Comment on above: History of pulmonary embolism (Primary Dx); Cardiomyopathy, hypertrophic nonobstructive (Multi); Tobacco use; Mild intermittent asthma without complication ([facility]) Start: 11-21-2024 End: 11-21-2024 ambulatory RADU KAY [facility] Start: 10-17-2024 End: 10-17-2024 Dr. Mercy Bishop MD -[facility] Work Phone: Start: 10-17-2024 End: 10-17-[address] Dex Wilkinson MD Work Phone: -[facility] Start: 10-03-2024 End: 10-03-[address] Dex Wilkinson MD Work Phone: -[facility] Start: 10-03-2024 End: 10-03-2024 Sujatha Olea [facility] Work Phone: Start: 09-24-2024 End: 09-24-2024 ambulatory DEEPIKA MAN [facility] Start: 09-24-2024 End: 09-24-2024 Telemedicine consultation with patient Deepika Raymondington PharmD Work Phone: [facility] Comment on above: Cardiomyopathy, hype rtrophic nonobstructive (Multi) Start: 09-20-2024 End: 09-23-2024 Evaluation and management of inpatient [place] Karlos HAMLIN Work Phone: [facility] 3 Comment on above: Acute exacerbation o f chronic heart failure (Primary Dx); Systolic congestive heart failure, unspecified HF chronicity; Pneumonia of left lower lobe due to infectious organism; Other constipation Start: 09-18-2024 End: 09-18-2024 Bárbara BUCKLEY -[facility] Work Phone: Start: 09-18-2024 End: 09-18-[address] Dex Wilkinson MD Work Phone: -[facility] Start: 09-14-2024 Dr. Emerson Sierra MD -[facility] Work Phone: Start: 09-13-2024 ambulatory Dex Cohn ty:[facility] Start: 09-13-2024 Dr. Emerson Sierra MD -[facility] Work Phone: Start: 09-12-2024 Quang Myles DO -[facility] Start: 09-12-2024 Dr. Emerson Sierra MD -[facility] Work Phone: Start: 09-11-2024 End: 09-14-2024 ambulatory Sergio Umaña Facility:[facility] Start: 09-11-2024 End: 09-14-[address] Dex Wilkinson MD Work Phone: -[facility] 3 Start: 09-11-2024 Evaluation and management of inpatient Dr. Dex Wilkinson MD Work Phone: -[facility] 3 Start: 09-11-2024 End: 09-14-2024 Dr. Sergio Umaña DO -[facility] 3 Work Phone: Start: 08-28-2024 End: 08-28-[address] Dex Wilkinson MD Work Phone: [facility] Work Phone: Start: 08-28-2024 End: 08-28-2024 Quang Myles DO -N[facility] Work Phone: Start: 08-27-2024 End: 08-28-[address] Dex Wilkinson MD Work Phone: [facility] Work Phone: Start: 08-27-2024 End: 08-27-2024 Quang Myles DO -[facility] Work Phone: Start: 08-27-2024 End: 08-27-2024 ambulatory Quang Myles Facility:[facility] Start: 08-24-2024 Dr. Taylor Tejeda MD - [facility] Work Phone: Start: 08-23-2024 Quang Yantis DO -[facility] Start: 08-23-2024 Dr. Taylor Tejeda MD - [facility] Work Phone: Start: 08-22-2024 Dr. Taylor Tejeda MD - [facility] Work Phone: Start: 08-21-2024 Quang Friend DO -[facility] Start: 08-20-2024 [facility] Friend DO -[facility] Start: 08-20-2024 ambulatory Taylor Poemelly Facility :[facility] Start: 08-20-2024 End: 08-24-2024 Evaluation and management of inpatient Dr. Dex Wilkinson MD Work Phone: [facility] Work Phone: Start: 08-20-2024 End: 08-24-2024 Dr. Lopez Larios DO -[facility] Care Unit Work Phone: Start: 08-15-2024 End: 08-23-2024 ambulatory [facility] Start: 08-15-2024 End: 08-15-2024 Office outpatient new 60 minutes Radu Kay MD Work Phone: [facility] Comment on above: Hypertrophic cardiom egaly (Primary Dx); Chronic heart failure with preserved ejection fraction (HFpEF); Cardiomyopathy, hypertrophic nonobstructive (Multi); History of pulmonary embolism; Other ascites; Atypical chest pain Start: 08-15-2024 End: 08-15-2024 Subsequent hospital visit by physician Clayton Anderson Cr Nonv1 Holter/Ecg Resource [facility] Comment on above: Heart failure, unspe cified Start: 08-15-2024 End: 08-15-2024 ambulatory [facility] Start: 08-11-2024 End: 08-11-2024 Dr. Dex Wilkinson MD Work Phone: -Emergency Department Work Phone: Start: 08-11-2024 End: 08-11-2024 Emergency department patient visit Dr. Dex Wilkinson MD Work Phone: [facility] Work Phone: Start: 08-10-2024 End: 08-10-2024 ambulatory S[facility] Coburn Clinical Communication Start: 08-10-2024 End: 08-10-2024 Patient encounter procedure Suman Cob[facility] Clinical Communication Start: 08-09-2024 End: 08-09-[address] Dex Wilkinson MD Work Phone: [facility] Work Phone: Start: 08-09-2024 End: 08-09-2024 Quang Myles DO -Laboratory Specimen Work Phone: Start: 08-08-2024 End: 08-08-[address] Dex Wilkinson MD Work Phone: [facility] Work Phone: Start: 08-08-2024 End: 08-08-2024 Quang Shameka DO -Laboratory Work Phone: Start: 08-08-2024 End: 08-08-2024 Patient encounter procedure Quang Myles DO -[facility] Work Phone: Start: 08-08-2024 End: 08-08-2024 Quang Myles DO -[facility] Work Phone: Start: 08-08-2024 End: 08-09-[address] Dex Wilkinson MD Work Phone: [facility] Work Phone: Start: 08-08-2024 End: 08-08-2024 ambulatory Quang Myles Facility:[facility] Start: 07-30-2024 End: 07-30-2024 Patient Outreach Quynh Chang [facility] Work Phone: Pharmacy Comment on above: Transition Of Care ( TCM Pharmacy-Hospital discharge 07/27/24/) Start: 07-26-2024 End: 07-26-2024 Evaluation and management of inpatient Pulm Fct Lab J-2 Pulmonary Medicine Comment on above: Preoperative examina tion, unspecified (Primary Dx) Start: 07-26-2024 End: 07-26-2024 Preprocedural examination done Pulm J-2 [facility] Start: 07-25-2024 End: 07-25-2024 Evaluation and management of inpatient Ip Transesophageal [facility] Comment on above: History of transesop hageal echocardiography (MICKI) (Primary Dx) Start: 07-24-2024 End: 07-27-2024 Evaluation and management of inpatient MERCY RUELASDENY BISHOP Facility:[facility] Start: 07-24-2024 Non-patient / Non-visit Dr. Willian Cantu [facility] Work Phone: Start: 07-24-2024 Dr. Willian Orozco [facility] Work Phone: Start: 07-23-2024 ambulatory Dex Wilkinson Facili ty:[facility] Start: 07-23-2024 ambulatory Sergio Umaña Facili ty:[facility] Start: 07-23-2024 Non-patient / Non-visit Dr. Mercy Bishop MD -[facility] Start: 07-23-2024 Dr. Mercy Bishop MD [facility] Start: 07-22-2024 Non-patient / Non-visit Dr. Saman ureña MD -[facility] Start: 07-22-2024 Dr. Saman Clay MD [facility] Start: 07-22-2024 Non-patient / Non-visit Dr. Willian Cantu [facility] Work Phone: Start: 07-22-2024 Dr. Willian Orozco [facility] Work Phone: Start: 07-21-2024 Non-patient / Non-visit Dr. Saman ureña MD -[facility] Start: 07-21-2024 Dr. Saman Clay MD [facility] Start: 07-21-2024 Non-patient / Non-visit Dr. Willian ritter DO -[facility] Work Phone: Start: 07-21-2024 Dr. Willian Ovalles DO -[facility] Work Phone: Start: 07-21-2024 ambulatory Filemon Subramanian [facility] Start: 07-21-2024 End: 07-24-2024 Dr. Willian Ovalles DO -Progressive Care Un it Work Phone: Start: 07-20-2024 End: 07-24-2024 Evaluation and management of inpatient Dr. Sergio Umaña DO -Progressive Care Unit Work Phone: Start: 07-12-2024 ambulatory Quang Shameka [place] Start: 07-12-2024 Non-patient / Non-visit Quang Yung meaghan DO -[facility] Start: 07-12-2024 Quang Shameka DO -[facility] Start: 07-12-2024 End: 07-12-2024 Admission to same day surgery center Quang Myles DO -Endoscopy Work Phone: Start: 07-12-2024 End: 07-12-2024 Quang Myles DO -Endoscopy Work Phone: Start: 07-12-2024 End: 07-12-2024 ambulatory Quang Myles Facility:[facility] Start: 07-10-2024 End: 07-10-2024 Patient encounter procedure Xochitl Bourne [facility] Work Phone: Start: 07-10-2024 End: 07-10-2024 Xochitl Bourne [facility] Work Phone: Start: 07-10-2024 End: 07-10-2024 ambulatory Dex Wilkinson [place] Start: 07-06-2024 End: 07-06-2024 Evaluation and management of inpatient DEEPIKA IZABELLA Facility:[facility] Start: 07-04-2024 End: 07-08-2024 Evaluation and management of inpatient DEX Manjinder WILKINSON Facility:[facility] Start: 07-04-2024 End: 07-04-2024 ambulatory Dex Wilkinson Facility:[facility] Start: 07-04-2024 End: 07-04-[address] Jose Francisco Santamaria MD -[facility] Work Phone: Start: 07-04-2024 End: 07-04-2024 Dr. Jose Francisco Santamaria MD -[facility] Work Phone: Start: 07-03-2024 End: 07-03-2024 Emergency department patient visit Dr. Nabor Frey DO -Emergency Department Work Phone: Start: 07-03-2024 End: 07-03-2024 Patient encounter procedure Bárbara BUCKLEY -[facility] Work Phone: Start: 07-03-2024 End: 07-03-2024 Dr. Nabor Frey DO -Emergency Departme nt Work Phone: Start: 07-03-2024 End: 07-03-2024 ambulatory Dex Wilkinson Facility:[facility] Start: 07-01-2024 End: 07-01-2024 Babar Wood DO -Emergency Departmen t Work Phone: Start: 07-01-2024 End: 07-01-2024 Emergency department patient visit Dr. Dex Wilkinson MD Work Phone: -Emergency Department Work Phone: Start: 07-01-2024 End: 07-01-2024 ambulatory Ella Cohen RN [facility] Start: 07-01-2024 End: 07-01-2024 Patient encounter procedure Ella Cohen RN [facility] Start: 05-15-2024 End: 05-21-2024 Evaluation and management of inpatient DEX WILKINSON Facility:[facility] Start: 05-11-2024 End: 05-12-2024 Dr. Bimal Cortez MD -Emergency Departm ent Work Phone: Start: 05-11-2024 End: 05-12-2024 Emergency department patient visit Dr. Bimal Cortez MD -Emergency Department Work Phone: Start: 03-28-2024 End: 03-28-2024 ambulatory Dex Wilkinson Facility:[facility] Start: 03-28-2024 End: 03-28-2024 Patient encounter procedure Dr. Jose Francisco Santamaria MD -[facility] Work Phone: Start: 10-31-2023 End: 10-31-[address] VICTOR M ORTIZ MD Facility:[facility] Start: 10-31-2023 End: 10-31-[address] VICTOR M ORTIZ MD [facility] Start: 07-04-2023 End: 07-04-2023 [facility] Start: 07-04-2023 ambulatory Angela Krishna RN [facility] Start: 07-04-2023 Patient encounter procedure Angela Krishna RN [facility] Start: 12-25-2022 End: 12-26-2022 [facility] Start: 03-09-2022 End: 03-09-2022 Emergency department patient visit [facility] Start: 12-16-2021 End: 12-17-2021 [facility] Start: 11-13-2021 End: 11-13-2021 [facility] Start: 11-02-2021 End: 11-02-2021 Emergency department patient visit [facility] Start: 08-25-2017 End: 08-25-2017 Ambulatory [facility] Procedures Date Procedure Procedure Detail Performing Clinician Start: 01-15-2025 Ecg routine ecg w/least 12 lds trcg only w/o i&r Theodore Rojas MD Work Phone: Start: 01-13-2025 Comprehensive metabolic panel Aron Driscoll DO Work Phone: Start: 01-12-2025 Comprehensive metabolic panel Aron Driscoll DO Work Phone: Start: 01-11-2025 Ecg routine ecg w/least 12 lds trcg only w/o i&r Theodore Rojas MD Work Phone: Start: 01-11-2025 Radiologic exam chest 2 views Eric Mix MD Work Phone: Start: 01-11-2025 Comprehensive metabolic panel Aron Driscoll DO Work Phone: Start: 01-10-2025 Ecg routine ecg w/least 12 lds trcg only w/o i&r Theodore Rojas MD Work Phone: Start: 01-10-2025 Us abdominal real time w/image limited Home Driscoll DO Work Phone: Start: 01-10-2025 Ecg routine ecg w/least 12 lds trcg only w/o i&r Home Driscoll DO Work Phone: Start: 01-10-2025 Comprehensive metabolic panel Aron Driscoll DO Work Phone: Start: 01-10-2025 EXTRA TUBES Home Driscoll DO Work Phone: Start: 01-10-2025 SST TOP Home Driscoll DO Work Phone: Start: 01-09-2025 Electrophysiology study Theodore Rojas MD Work Phone: Start: 01-09-2025 Echo transthorc r-t 2d w/wo m-mode rec f-up/lmtd Marilee 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[employer] Work Phone: Start: 01-09-2025 Ecg routine ecg w/least 12 lds trcg only w/o i&r Theodore Rojas MD Work Phone: Start: 01-09-2025 Ecg routine ecg w/least 12 lds trcg only w/o i&r Raysal Kim DO Work Phone: Start: 01-09-2025 Radiologic exam chest single view Kenya thierno Driscoll DO Work Phone: Start: 01-09-2025 End: 01-09-2025 Comprehensive metabolic panel Estefania morris MD Work Phone: Start: 01-09-2025 Ethanol [Mass/volume] in Serum or Plasma Home Driscoll DO Work Phone: Start: 01-09-2025 EXTRA TUBES Home Driscoll DO Work Phone: Start: 01-09-2025 SST TOP Home Driscoll DO Work Phone: Start: 01-09-[address] Kd Wilkinson MD Work Phone: Start: 01-09-2025 Mean corpuscular hemoglobin concentration determination Dr. Dex Wilkinson MD Work Phone: Start: 01-09-[address] Dex Wilkinson MD Work Phone: Start: 01-09-2025 Nucleated red blood cell count procedure Dr. Dex Wilkinson MD Work Phone: Start: 01-09-2025 Platelet mean volume determination Dr. Dex Wilkinson MD Work Phone: Start: 12-30-[address] Jaime Wilkinson MD Work Phone: Start: 12-30-[address] Dex Wilkinson MD Work Phone: Start: 12-30-2024 Mean corpuscular hemoglobin concentration determination Dr. Dex Wilkinson MD Work Phone: Start: 12-30-[address] Dex Wilkinson MD Work Phone: Start: 12-30-2024 Nucleated red blood cell count procedure Dr. Dex Wilkinson MD Work Phone: Start: 12-30-2024 Platelet mean volume determination Dr. Dex Wilkinson MD Work Phone: Start: 12-30-2024 End: 12-30-2024 Iadna-dna/rna gi pthgn multiplex probe tq 6-11 Dr. Dex Wilkinson MD Work Phone: Start: 12-29-[address] Dex Wilkinson MD Work Phone: Start: 12-29-2024 Dr. Dex Wilkinson MD Work Phone: Start: 12-29-[address] Dex Wilkinson MD Work Phone: Start: 12-29-[address] Kd Wilkinson MD Work Phone: Start: 12-28-2024 Urine microscopy: red cells Dr. Dex Wilkinson MD Work Phone: Start: 12-28-2024 Urnls dip stick/tablet reagent auto microscopy Dr. Dex Wilkinson MD Work Phone: Start: 12-28-2024 CT angiography of chest with contrast Dr. Dex Wilkinson MD Work Phone: Start: 12-28-2024 Calculation of international normalized ratio Dr. Dex Wilkinson MD Work Phone: Start: 12-27-2024 Cardiac catheterization Jaxson Osorio MD Work Phone: Start: 12-27-2024 Natriuretic peptide Eddie Gupta MD Work Phone: Start: 12-27-2024 RESPIRATORY CARE EVALUATION ONLY Eddie Curry MD Work Phone: Start: 12-26-2024 Electrocardiogram DEEPIKA PAREKH Start: 12-12-2024 Mean corpuscular hemoglobin concentration determination Dr. Dex Wilkinson MD Work Phone: Start: 12-12-[address] Dex Wilkinson MD Work Phone: Start: 12-12-2024 Nucleated red blood cell count procedure Dr. Dex Wilkinson MD Work Phone: Start: 12-12-2024 Platelet mean volume determination Dr. Dex Wilkinson MD Work Phone: Start: 12-12-[address] Dex Wilkinson MD Work Phone: Start: 11-27-2024 X-ray of chest, PA and lateral views Dr. Dex Wilkinson MD Work Phone: Start: 11-27-2024 Blood count smear mcrscp w/mnl difrntl wbc count Dr. Dex Wilkinson MD Work Phone: Start: 11-27-[address] Kd Wilkinson MD Work Phone: Start: 11-27-2024 Mean corpuscular hemoglobin concentration determination Dr. Dex Wilkinson MD Work Phone: Start: 11-27-[address] Dex Wilkinson MD Work Phone: Start: 11-27-2024 Nucleated red blood cell count procedure Dr. Dex Wilkinson MD Work Phone: Start: 11-27-2024 Platelet mean volume determination Dr. Dex Wilkisnon MD Work Phone: Start: 11-27-2024 Dr. Dex Wilkinson MD Work Phone: Start: 11-25-2024 Urine microscopy: red cells Dr. Dex Wilkinson MD Work Phone: Start: 11-25-2024 Urnls dip stick/tablet reagent auto microscopy Dr. Dex Wilkinson MD Work Phone: Start: 11-25-2024 Blood count smear mcrscp w/mnl difrntl wbc count Dr. Dex Wilkinson MD Work Phone: Start: 11-25-[address] Kd Wilkinson MD Work Phone: Start: 11-25-[address] Dex Wilkinson MD Work Phone: Start: 11-25-2024 Mean corpuscular hemoglobin concentration determination Dr. Dex Wilkinson MD Work Phone: Start: 11-25-[address] Dex Wilkinson MD Work Phone: Start: 11-25-2024 Platelet mean volume determination Dr. Dex Wilkinson MD Work Phone: Start: 11-25-[address] Dex Wilkinson MD Work Phone: Start: 11-25-2024 Computed tomography of abdomen and pelvis with intravenous contrast Dr. Dex Wilkinson MD Work Phone: Start: 11-23-[address] Dex Wilkinson MD Work Phone: Start: 11-23-2024 Fluoroscopy guided endoscopic retrograde cholangiopancreatography Dr. Dex Wilkinson MD Work [...] Ct abdomen & pelvis w/contrast material Rocky Pavon Everett Work Phone: Start: 09-21-2024 Ct angiography chest w/contrast/noncontrast Rocky Everett DO Work Phone: Start: 09-21-2024 Assay of troponin quantitative Rocky Everett DO Work Phone: Start: 09-21-2024 Urinalysis complete W Reflex Culture panel - Urine Rocky Everett DO Work Phone: Start: 09-21-2024 Urnls dip stick/tablet reagent auto microscopy Rocky G Everett DO Work Phone: Start: 09-21-2024 Comprehensive [...] Dex Wilkinson MD Work Phone: Start: 09-14-[address] Dex Wilkinson MD Work Phone: Start: 09-14-2024 Nucleated red blood cell count procedure Dr. Dex Wilkinson MD Work Phone: Start: 09-14-2024 Platelet mean volume determination Dr. Dxe Wilkinson MD Work Phone: Start: 09-13-2024 Serum [...] Kd Wilkinson MD Work Phone: Start: 09-11-[address] Dex Wilkinson MD Work Phone: Start: 09-11-2024 Mean [...] Dex Wilkinson MD Work Phone: Start: 08-24-[address] Dex Wilkinson MD Work Phone: [...] Dex Wilkinson MD Work Phone: Start: 08-21-2024 End: 08-21-2024 Fluoroscopy guided endoscopic retrograde cholangiopancreatography Dr. Dex Wilkinson MD Work [...] Dex Wilkinson MD Work Phone: Start: 08-08-2024 VICE PRESIDENT SALES antibody measurement Dr. Dex Wilkinson MD Work Phone: Start: 08-08-[address] Dex Wilkinson MD Work Phone: Start: 08-08-[address] Dex Wilkinson MD Work Phone: Start: 08-08-[address] Dex Wilkinson MD Work Phone: Start: 07-24-2024 Antibody screen [facility] Comment on above: Order Comment: Specimen Type: BLOOD SPEC IMEN Ordering Facility: [facility] Address: [address] [place] [address] Performed By: #### 5 [id number] #### [facility] CLIA [id number] [address] [place] [address] [place] Start: 07-23-2024 Blood [...] Dr. Dex Wilkinson MD Work Phone: Start: 05-15-2024 Electrocardiogram DEEPIKA PAREKH Start: 07-04-2023 Plain chest X-ray Start: 07-04-2023 [...] MRI guided ablation of uterine fibroid DR VICTRO M ORTIZ MD Plan of Treatment Date Care Activity Detail Author Start: 09-15-2054 RSV Immunization for Adults (1 - 1-dose 75+ series) RSV Immunization for Adults (1 - 1-dose 75+ series) [facility] Start: 07-12-2034 Screening for malignant neoplasm of colon [facility] Start: 09-15-2029 Zoster Vaccines (1 of 2) Zoster Vaccines (1 of 2) [facility] Start: 01-13-2026 Creatinine measurement Creatinine Level [facility] Start: 01-13-2026 Diabetes mellitus screening Diabetes Screening [facility] Start: 01-13-2026 Potassium measurement Potassium Level [facility] Start: 01-09-2026 Echocardiography Echocardiogram [facility] Start: 09-23-2025 Creatinine measurement Creatinine Level [facility] Start: 09-23-2025 Diabetes mellitus screening Diabetes Screening [facility] Start: 09-23-2025 Potassium measurement Potassium Level [facility] Start: 09-21-2025 Echocardiography Echocardiogram [facility] Start: 07-25-2025 Diabetes mellitus screening Diabetes Screening [facility] Start: 01-23-2025 End: 01-23-2025 Patient encounter procedure 01/23/2025 2:00 PM EST Office Visit [facility] [address] [place] [address] Radu Kay MD [address] [facility] [address] [place], [place] [id number] [facility] Start: 01-09-2025 Plain chest X-ray [facility] Start: 01-09-2025 End: 01-09-2025 [facility] Start: 12-31-2024 Patient discharge [facility] Start: 12-31-2024 -[facility] Work Phone: Start: 12-30-2024 Clostridium difficile detection [facility] Start: 12-30-2024 Nucleic acid assay [facility] Start: 12-30-2024 -[facility] Work Phone: Start: 12-29-2024 Enteric precautions [facility] Start: 12-29-2024 -[facility] Work Phone: Start: 12-28-2024 End: 12-29-2024 [facility] Start: 12-28-2024 Following clinical pathway protocol [facility] Start: 12-28-2024 Ambulation without limitation [facility] Start: 12-28-2024 Assessment of risk of venous thromboembolism [facility] Start: 12-28-2024 Insertion of catheter into peripheral vein [facility] Start: 12-28-2024 Measuring intake and output [facility] Start: 12-28-2024 Providing care according to standard [facility] Start: 12-28-2024 Admission procedure [facility] Start: 12-28-2024 Chart related administrative procedure [facility] Start: 12-05-2024 End: 11-21-2025 Basic metabolic 2000 panel - Serum or Plasma Basic metabolic panel Lab Routine Cardiomyopathy, hypertrophic nonobstructive (Multi) History of pulmonary embolism Expected: 12/05/2024 (Approximate), Expires: 11/21/2025 [facility] Service Area Work Phone: Comment on above: Expected: 12/05/2024 (Approximate), Expi res: 11/21/2025 Start: 12-05-2024 End: 11-21-2025 Natriuretic peptide B [Mass/volume] in Blood B-Type Natriuretic Peptide Lab Routine Cardiomyopathy, hypertrophic nonobstructive (Multi) History of pulmonary embolism Expected: 12/05/2024, Expires: 11/21/2025 [facility] Work Phone: Comment on above: Expected: 12/05/2024, Expires: Start: 11-27-2024 End: 11-27-2024 [facility] Start: 11-23-2024 Ercp remove calculi/debris biliary/pancreas duct [facility] Start: 11-23-2024 Ercp remove foreign body/stent biliary/panc duct [facility] Start: 11-23-2024 Ercp w/sphincterotomy/papillotomy [facility] Start: 11-23-2024 Patient discharge [facility] Start: 11-21-2024 End: 11-21-2025 Basic metabolic 2000 panel - Serum or Plasma Basic metabolic panel Lab Routine Cardiomyopathy, hypertrophic nonobstructive (Multi) History of pulmonary embolism Expected: 11/21/2024 (Approximate), Expires: 11/21/2025 [facility] Work Phone: Comment on above: Expected: 11/21/2024 (Approximate), Expi res: 11/21/2025 Start: 11-21-2024 End: 11-21-2025 Natriuretic peptide B [Mass/volume] in Blood B-Type Natriuretic Peptide Lab Routine Cardiomyopathy, hypertrophic nonobstructive (Multi) History of pulmonary embolism Expected: 11/21/2024 (Approximate), Expires: 11/21/2025 [facility] Work Phone: Comment on above: Expected: 11/21/2024 (Approximate), Expi res: 11/21/2025 Start: 11-21-2024 End: 11-21-2024 Patient encounter procedure 11/21/2024 10:30 AM EDT Office Visit [facility] [address] [address] [place] [phone] Radu Kay MD [address] [facility] [address] [place], [place] [phone] [facility] Start: 11-12-2024 COVID-19 Vaccine ( season) COVID-19 Vaccine ( season) [facility] Start: 11-12-2024 Influenza vaccination [facility] Start: 10-29-2024 End: 10-29-2024 Telemedicine consultation with patient 10/29/2024 2:40 PM EDT Telemedicine [facility] [address] [place] [phone] Deepika Man, PharmD [address] [place] [address] [facility] Start: 10-12-2024 Influenza vaccination Influenza Vaccine (#1) [facility] Start: 09-24-2024 End: 09-24-2024 Telemedicine consultation with patient 09/24/2024 2:40 PM EDT Telemedicine [facility] [address] [place] [phone] Deepika Man, PharmD [address] [place] [address] [facility] Start: 09-14-2024 Patient discharge [facility] Start: 09-12-2024 Application of intermittent pneumatic compression device [facility] Start: 09-12-2024 Following clinical pathway protocol [facility] Start: 09-12-2024 Assessment of risk of venous thromboembolism [facility] Start: 09-12-2024 Insertion of catheter into peripheral vein [facility] Start: 09-12-2024 Measuring intake and output [facility] Start: 09-12-2024 Oxygen therapy [facility] Start: 09-12-2024 Providing care according to standard [facility] Start: 09-12-2024 Provision of activity privileges [facility] Start: 09-12-2024 Referral for physical therapy [facility] Start: 09-12-2024 Referral to gastroenterology service [facility] Start: 09-12-2024 Referral to service [facility] Start: 09-12-2024 [facility] Start: 09-11-2024 Verification routine [facility] Start: 09-11-2024 Admission procedure [facility] Start: 09-11-2024 Hospital admission, emergency, from emergency room, medical nature [facility] Start: 08-27-2024 Magnetic resonance cholangiopancreatography [facility] Start: 08-27-2024 MR Biliary ducts and Pancreatic duct contrast [facility] Start: 08-24-2024 Patient discharge [facility] Start: 08-22-2024 Provision of activity privileges [facility] Start: 08-20-2024 Following clinical pathway protocol [facility] Start: 08-20-2024 Ambulation without limitation [facility] Start: 08-20-2024 Assessment of risk of venous thromboembolism [facility] Start: 08-20-2024 Insertion of catheter into peripheral vein [facility] Start: 08-20-2024 Measuring intake and output [facility] Start: 08-20-2024 Providing care according to standard [facility] Start: 08-20-2024 Referral to gastroenterology service [facility] Start: 08-20-2024 [facility] Start: 08-20-2024 Hospital admission, emergency, from emergency room, medical nature [facility] Start: 08-20-2024 Verification routine [facility] Start: 08-20-2024 Admission procedure [facility] Start: 08-20-2024 Patient referral to [facility] Start: 08-11-2024 [facility] Start: 08-09-2024 [facility] Start: 08-09-2024 Ova OR parasites identification [facility] Start: 08-08-2024 [facility] Start: 07-26-2024 End: 07-26-2024 Patient encounter procedure [facility]monary Medicine Comment on above: NEEDS TRANSPORT IP AO, RA, NO DRIPS, REG WC, NO PRECAUTIONS/FEVERS //KP Start: 07-24-2024 Oxygen therapy [facility] Start: 07-24-2024 Patient discharge [facility] Start: 07-23-2024 Referral to gastroenterology service [facility] Start: 07-22-2024 Bacteria identified in Blood by Culture Blood Culture [facility] Start: 07-22-2024 End: 07-22-2024 [facility] Start: 07-22-2024 Inhalation therapy procedure [facility] Start: 07-21-2024 Provision of activity privileges [facility] Start: 07-21-2024 Following clinical pathway protocol [facility] Start: 07-21-2024 Assessment of risk of venous thromboembolism [facility] Start: 07-21-2024 Catheterization of vein [facility] Start: 07-21-2024 Insertion of catheter into peripheral vein [facility] Start: 07-21-2024 Measuring intake and output [facility] Start: 07-21-2024 Providing care according to standard [facility] Start: 07-21-2024 Provision of activity privileges [facility] Start: 07-21-2024 Referral to operator specialist communications [facility] Start: 07-21-2024 Referral to service [facility] Start: 07-21-2024 [facility] Start: 07-21-2024 Verification routine [facility] Start: 07-21-2024 Admission procedure [facility] Start: 07-20-2024 Hospital admission, emergency, from emergency room, medical nature [facility] Start: 07-20-2024 [facility] Start: 07-12-2024 Colonoscopy w/biopsy single/multiple [facility] Start: 07-12-2024 Endoscopy upper small intestine w/biopsy [facility] Start: 07-12-2024 Patient discharge [facility] Start: 07-03-2024 [facility] Start: 07-01-2024 [facility] Start: 05-12-2024 [facility] Start: 02-08-2024 Screening for malignant neoplasm of cervix Cervical Cancer Screening [facility] Start: 11-13-2023 Covid-19 Vaccine ( season) Covid-19 Vaccine () [facility] Start: 07-04-2023 [facility] Start: 12-26-2022 [facility] Start: 12-26-2022 [facility] Start: 12-25-2022 [facility] Start: 11-07-2022 Urine microalbumin profile DTaP,Tdap,Td Vaccine (2 - Td or Tdap) [facility] Start: 12-16-2021 [facility] Work Phone: Start: 2019 Screening for malignant neoplasm of breast [facility] Start: 04-05-2012 Pneumococcal vaccination Pneumococcal Vaccine (2 of 2 - PCV) [facility] Start: 04-05-2012 Pneumococcal Vaccine: Pediatrics and At-Risk Adult Patients (2 of 2 - PCV) Pneumococcal Vaccine: Pediatrics and At-Risk Adult Patients (2 of 2 - PCV) [facility] Start: 09-15-2009 Screening for malignant neoplasm of cervix [facility] Start: 09-15-2006 HPV Vaccines (1 - 3-dose standard series) HPV Vaccines (1 - 3-dose standard series) [facility] Start: 07-05-2002 DTaP/Tdap/Td Vaccines (1 - Tdap) DTaP/Tdap/Td Vaccines (1 - Tdap) [facility] Start: 09-15-2000 Screening for malignant neoplasm of cervix [facility] Start: 09-15-1998 DTaP/Tdap/Td Vaccines (1 - Tdap) DTaP/Tdap/Td Vaccines (1 - Tdap) [facility] Start: 09-15-1998 Hepatitis A Vaccines (1 of 2 - Risk 2-dose series) Hepatitis A Vaccines (1 of 2 - Risk 2-dose series) [facility] Start: 09-15-1998 Hepatitis B Vaccine (1 of 3 - 19+ 3-dose series) Hepatitis B Vaccine (1 of 3 - 19+ 3-dose series) [facility] Start: 09-15-1998 Hepatitis B Vaccines (1 of 3 - 19+ 3-dose series) Hepatitis B Vaccines (1 of 3 - 19+ 3-dose series) [facility] Start: 09-15-1997 Annual PCP Team Chronic Disease Visit Annual PCP Team Chronic Disease Visit [facility] Start: 09-15-1997 Depression Screening Depression Screening [facility] Start: 09-15-1997 Hepatitis C screening Hepatitis C Screening [facility] Start: 09-15-1997 HIV screening HIV Screening [facility] Start: 1991 Depression Screening Depression Screening [facility] Start: 09-15-1980 MMR Vaccines (1 of 1 - Standard series) MMR Vaccines (1 of 1 - Standard series) [facility] Start: 1979 Creatinine measurement Creatinine Level [facility] Start: 1979 Echocardiography Echocardiogram [facility] Start: 1979 HIV screening HIV Screening [facility] Start: 1979 Lipid panel Lipid Panel [facility] Start: 1979 Potassium measurement Potassium Level [facility] Start: 1979 Screening for malignant neoplasm of colon [facility] Start: 1979 Yearly Adult Physical Yearly Adult Physical [facility] Angiotensin converti ng enzyme [Enzymatic activity/volume] in Serum or Plasma [facility] Antibody to lupus [place] protein measurement [facility] Antibody to SS-A measurement [facility] Blood ammonia measurement [facility] C reactive protein [ Mass/volume] in Serum or Plasma [facility] End: 12-27-2024 Cardiac Device Check - Inpatient Cardiac Device Check - Inpatient Implantable Cardiac Device Routine Chest pain, unspecified type ICD (implantable cardioverter-defibril lator) in place Cardiomyopathy, hypertrophic nonobstructive (Multi) Once for 1 Occurrences starting 12/27/2024 until 12/27/2024 [facility] Work Phone: Comment on above: Once for 1 Occurrences starting 12/28/19 until 12/27/2024 End: 01-09-2025 Cardiac device check - Inpatient Cardiac device check - Inpatient Implantable Cardiac Device Routine Defibrillator discharge Once for 1 Occurrences starting 01/09/2025 until 01/09/2025 [facility] Work Phone: Comment on above: Once for 1 Occurrences starting 01/10/20 until 01/09/2025 CBC W Auto Different ial panel - Blood [facility] CBC W Auto Different ial panel - Blood [facility] Celiac disease screen [facility] Ceruloplasmin [Mass/ volume] in Serum or Plasma [facility] Clam IgE Ab [Units/v olume] in Serum [facility] Clostridioides diffi cile DNA [Presence] in Unspecified specimen by BIMAL with probe detection [facility] Codfish IgE Ab [Unit s/volume] in Serum [facility] Colonoscopy [facility] metabo lic 1999 panel - Serum or Plasma [facility] metabo lic 1999 panel - Serum or Plasma [facility] Copper [Moles/volume ] in Serum or Plasma [facility] [place] IgE Ab [Units/v olume] in Serum [facility] Cow milk IgE Ab [Uni ts/volume] in Serum [facility] DNA double strand Ab [Units/volume] in Serum [facility] ECG 12 lead ECG 12 lead ECG Routine Heart failure, unspecified 08/23/2024 12:53 PM EDT [facility] Service Area Work Phone: End: 01-12-2025 ECG 12 lead [facility] Service Area Work Phone: Comment on above: Once for 1 Occurrences starting 01/13/20 until 01/12/2025 ECG 12 lead (Ancilla ry Performed) ECG 12 lead (Ancillary Performed) ECG Routine ACS (acute coronary syndrome) (Multi) 01/11/2025 2:30 PM EDT [facility] Work Phone: ECG 12 lead (Ancilla ry Performed) ECG 12 lead (Ancillary Performed) ECG Routine ACS (acute coronary syndrome) (Multi) 01/15/2025 10:32 AM EST [facility] Work Phone: Egg white RAST [facility] Electrocardiogram 12 lead PRN ACS symptoms [facility] Work Phone: Comment on above: As needed until discontinued starting , 1 completed Electrocardiogram, 1 2-lead PRN ACS symptoms Electrocardiogram, 12-lead PRN ACS symptoms ECG Routine As needed until discontinued starting 09/21/2024 [facility] Work Phone: Comment on above: As needed until discontinued starting Electrocardiogram, 1 2-lead PRN ACS symptoms Electrocardiogram, 12-lead PRN ACS symptoms ECG Routine As needed until discontinued starting 09/21/2024 [facility] Work Phone: Comment on above: As needed until discontinued starting Electrocardiogram, 1 2-lead PRN ACS symptoms Electrocardiogram, 12-lead PRN ACS symptoms ECG Routine As needed until discontinued starting 12/27/2024 [facility] Work Phone: Comment on above: As needed until discontinued starting End: 01-09-2025 Electrocardiogram, 12-lead PRN ACS symptoms [facility] Work Phone: Comment on above: As needed until discontinued starting Once for 1 Occurrenc es starting 01/09/2025 until 01/09/2025 Erythrocyte sedimentation rate [facility] End: 09-20-2024 Extra Urine Price Tube Extra Urine Price Tube Lab Timed Once for 1 Occurrences starting 09/20/2024 until 09/20/2024 [facility] Work Phone: Comment on above: Once for 1 Occurrences starting 09/21/19 25 until 09/20/2024 Ferritin [Mass/volum e] in Serum or Plasma [facility] Gastrin [Mass/volume ] in Serum or Plasma [facility] Giardia lamblia Ag [ Presence] in Stool by Immunoassay [facility] Haptoglobin [Mass/vo lume] in Serum or Plasma [facility] Hemoglobin A1c/Hemog lobin.total in Blood [facility] IgG subclass panel [ Mass/volume] - Serum [facility] Immunoglobulin measurement [facility] Iron [Mass/mass] in Unspecified specimen [facility] Lactate dehydrogenas e measurement [facility] Lactoferrin [Presenc e] in Stool by Immunoassay [facility] Magnesium measurement [facility] Magnesium measurement [facility] MR Biliary ducts and Pancreatic duct WO contrast [facility] MRI of small intestine [facility] Nucleic acid assay [facility] Ova OR parasites identification [facility] Patient Education [facility] Work Phone: Patient referral [facility] Work Phone: Peanut IgE Ab [Units /volume] in Serum [facility] Protein measurement [facility] Prothrombin time [facility] Radionuclide gastric emptying study [facility] Reticulocyte count [facility] Scallop RAST [facility] Serum immunofixation [facility] Sesame seed RAST [facility] Shrimp IgE Ab [Units /volume] in Serum [facility] Soybean IgE Ab [Unit s/volume] in Serum [facility] Thyroid stimulating hormone measurement [facility] End: 09-20-2024 Urinalysis complete W Reflex Culture panel - Urine [facility] Work Phone: Comment on above: Once (Lab) for 1 Occurrences starting until 09/20/2024 US Heart [facility] End: 09-21-2024 US Heart Transthoracic [facility] Work Phone: Comment on above: Once for 1 Occurrences starting 09/22/19 until 09/21/2024 [place] RAST [facility] Wheat IgE Ab [Units/ volume] in Serum [facility] Immunizations Immunization Date Immunization [facility] Covid (Moderna) Dr. Dex Wilkinson MD Work Phone: [facility] 07-01-2020 Covid (Moderna) Dr. Dex Wilkinson MD Work Phone: [facility] 01-28-2020 influenza virus vacc ine, unspecified formulation [facility] 01-12-2014 influenza, seasonal, injectable, preservative free [facility] Work Phone: 01-12-2014 influenza virus vacc ine, unspecified formulation Radu Kay MD Work Phone: [facility] Work Phone: 01-03-2013 influenza virus vacc ine, unspecified formulation [facility] 04-05-2011 pneumococcal polysaccharide vaccine, 23 valent [facility] 12-16-2008 influenza virus vacc ine, unspecified formulation [facility] Work Phone: Payers Date Payer Category Payer Managed Care (Private) [id number] 2024 Unknown [id number] 2024 [facility] Plan / Payer (Effective 2023-Present) Name: Michelle Mitchell Relation to Subscriber: Self Name: Michelle Mitchell Payer ID: [id number] (NAIC) Type: PPO Address: [facility] [address] [place] [id number] 2023 Unknown [id number] 1979 Unknown [id number] 2.16.840.1.635303.3.579.2. 627 1979 Unknown [id number] 2.16.840.1.420225.3.579.2. 1242 1979 Unknown [id number] 2.16.840.1.921044.3.579.2. 1242 1979 Unknown [id number] 2.840.1.300162.3.579.2. 1244 1979 Unknown [id number] 2.16.840.1.582103.3.579.2. 1244 1979 Unknown [id number] .840.1.756064.3.579.2. 1244 1979 Unknown [id number] 2.840.1.935907.3.579.2. 1246 1979 Unknown [id number] 2.840.1.016341.3.579.2. 1246 1979 Unknown [id number] 2.840.1.922695.3.579.2. 1246 1979 Unknown [id number] 2.840.1.798118.3.579.2. 1246 1979 Unknown [id number] 2.840.1.900989.3.579.2. 1246 1979 Unknown [id number] 2.840.1.527992.3.579.2. 1246 1979 Unknown [id number] 2.16.840.1.658954.3.579.2. 124 Unknown [id number] Unknown [id number] 2.16.840.1.612363.3.579.2. 462 Unknown [id number] 2.16840.1.106789.3.579.2. 462 Unknown [id number] 2.16840.1.553304.3.579.2. 462 Unknown [id number] 2.16.840.1.677774.3.579.2. 462 Unknown [id number] 2.16.840.1.253536.3.579.2. 462 Unknown [id number] 2.16.840.1.354229.3.579.2. 462 Unknown [id number] 2.16.840.1.427712.3.579.2. 462 Unknown [id number] 2.16840.1.345938.3.579.2. 462 Unknown [id number] 2.840.1.794924.3.579.2. 462 Unknown [id number] 2.16840.1.025198.3.579.2. 462 Unknown [id number] 2.840.1.048027.3.579.2. 462 Unknown [id number] 2.840.1.136482.3.579.2. 462 Unknown [id number] 2.840.1.081866.3.579.2. 462 Unknown [id number] 2.16840.1.780305.3.579.2. 462 Unknown [id number] 2.16.840.1.870250.3.579.2. 462 Unknown [id number] 2.840.1.124437.3.579.2. 462 Unknown [id number] 2.16840.1.841588.3.579.2. 462 Unknown [id number] 2.16840.1.444216.3.579.2. 462 Unknown [id number] 2.16.840.1.408036.3.579.2. 462 Unknown [id number] 2.16.840.1.390121.3.579.2. 462 Unknown [id number] 2.16840.1.421381.3.579.2. 462 Unknown [id number] 2.16.840.1.543063.3.579.2. 462 Unknown [id number] 2.16.840.1.882356.3.579.2. 462 Unknown [id number] 2.16.840.1.121106.3.579.2. 462 Unknown [id number] 2.16.840.1.409368.3.579.2. 462 Unknown [id number] 2.16.840.1.983650.3.579.2. 462 Unknown [id number] 2.16.840.1.437588.3.579.2. 462 Unknown [id number] 2.16.840.1.987605.3.579.2. 462 Unknown [id number] 2.16.840.1.475275.3.579.2. 462 Unknown [id number] 2.840.1.838763.3.579.2. 462 Unknown [id number] 2.16.840.1.249864.3.579.2. 462 Unknown [id number] 2.840.1.368322.3.579.2. 462 Unknown [id number] 2.16.840.1.136854.3.579.2. 462 Unknown [id number] 2.16840.1.359929.3.579.2. 462 Unknown [id number] 2.16.840.1.461653.3.579.2. 462 Unknown [id number] 2.16.840.1.215266.3.579.2. 462 Unknown [id number] 2.16.840.1.813148.3.579.2. 462 Unknown [id number] 2.16.840.1.361966.3.579.2. 462 Unknown [id number] 2.16.840.1.872828.3.579.2. 462 Unknown [id number] 2.16.840.1.148233.3.579.2. 462 Unknown [id number] 2.16840.1.440650.3.579.2. 462 Unknown [id number] 2.16840.1.852490.3.579.2. 462 Unknown [id number] 2.16.840.1.239632.3.579.2. 462 Unknown [id number] 2.840.1.476083.3.579.2. 462 Unknown [id number] 2.840.1.161028.3.579.2. 462 Unknown [id number] 2.840.1.385341.3.579.2. 462 Unknown [id number] 2.840.1.296090.3.579.2. 462 Unknown [id number] 2.840.1.565619.3.579.2. 462 Unknown [id number] 2.840.1.448316.3.579.2. 462 Unknown [id number] 2.840.1.350396.3.579.2. 462 Unknown [id number] 2.840.1.487823.3.579.2. 462 Unknown [id number] 2.840.1.720177.3.579.2. 462 Unknown [id number] 2.840.1.499292.3.579.2. 462 Unknown [id number] 2.840.1.042300.3.579.2. 462 Unknown [id number] 2.840.1.883346.3.579.2. 462 Unknown [id number] 2.840.1.705515.3.579.2. 462 Unknown [id number] 2.840.1.270255.3.579.2. 462 Unknown [id number] 2.840.1.726450.3.579.2. 462 Unknown [id number] 2.16.840.1.005608.3.579.2. 462 Unknown [id number] 2.16.840.1.921877.3.579.2. 462 Unknown [id number] 2.16.840.1.088373.3.579.2. 462 Unknown [id number] 2.16.840.1.497029.3.579.2. 462 Unknown [id number] 2.16.840.1.640523.3.579.2. 462 Unknown [id number] 2.16.840.1.891557.3.579.2. 462 Social History Date Type Detail Facility [facility] Work Phone: Start: 11-02-2021 End: 07-04-2023 Tobacco smoking status MTIS Unknown if ever smoked [facility] Start: 1980 Sex Assigned At Female [facility] Start: 1980 Sex Assigned At Not on file [facility] Start: 07-25-2024 End: 01-09-2025 Gender identity Not on file [facility] Start: 10-31-2023 Tobacco smoking status Light tobacco smoker (finding) [facility] Start: 10-12-2021 End: 02-06-2022 Sex Female (finding) [facility] Start: 07-01-2024 End: 08-15-2024 Tobacco smoking status MTIS Smokes tobacco daily (finding) [facility] Start: 03-14-1982 History of tobacco use Cigarette Smoker [facility] Start: 04-16-2020 End: 01-09-2025 Cigarettes smoked current (pack per day) - Reported 0.3 [facility] Start: 04-16-2020 End: 08-15-2024 Tobacco use and exposure Smokeless tobacco non-user [facility] Start: 07-25-2024 Alcoholic beverage intake Current non-drinker of alcohol (finding) [facility] Has the electric, gas, oil, or water company threatened to shut off services in your home in past 12Mo No [facility] Start: 02-06-2022 PHQ2 Score 0 [facility] (I/We) worried whether (my/our) food would run out before (I/we) got money to buy more. Never true [facility] Start: 09-18-2018 Tobacco Comment since age 12 yrs [facility] Start: 08-05-2024 End: 08-15-2024 Exposure to SARS-CoV-2 (event) Not sure [facility] How often to you hav e a drink containing alcohol? Never [facility] Work Phone: How hard is it for you to pay for the very basics like food, housing, medical care, and heating Hard [facility] In the past 12 months, was there a time when you were not able to pay the mortgage or rent on time? Yes [facility] Work Phone: Start: 12-27-2024 End: 01-11-2025 Alcoholic beverage intake Lifetime non-drinker (finding) [facility] Work Phone: How hard is it for you to pay for the very basics like food, housing, medical care, and heating Somewhat hard [facility] Work Phone: Start: 12-28-2024 Tobacco smoking status NHIS Ex-smoker (finding) [facility] Start: 01-09-2025 Tobacco smoking status [facility] Current some day smoker [facility] NEGATED: Highlighted row Not [facility] Medical Equipment Procedure Code Equipment Code Equipment Origin al Text Equipment Identifier Dates ERCP (endoscopic retrograde cholangiopancreato graphy) [id number] FDA Start: 08-21-2024 ERCP (endoscopic retrograde cholangiopancreato graphy) ([id number]) [id number] FDA Start: 08-21-2024 [id number] Visi a Af Mri [id number] Start: 10-29-2016 Lead Sprint Quat tro Secure S 55cm Pacing Df-4 Tripolar Screw Defibrillator - [id number] Start: 10-29-2016 Comment on above: Description: Right v entrical lead Defib-Vr [id number] Visia Mri Af - [id number] Start: 10-29-2016 FDA Start: 10-29-2016 FDA [...] 10-29-2016 FDA Start: 10-29-2016 FDA Start: 10-29-2016 Lead, Alec Mera, 44 Cm - [id number] - [id number] Start: 01-09-2025 Difibulator, Icd Gilead Xt Dr Mri Is1 Df4 - [id number] - [id number] Start: 01-09-2025 FDA Start: 10-29-2016 FDA Start: 10-29-2016 Goals Date Patient Goal Desired Activity /State Functional Status Date Assessment Result Facility 01-14-2025 Are you deaf, or do you have serious difficulty hearing No 01/14/2025 11:27 AM Jennifer Antunez, JAJA No [facility] Work Phone: 01-14-2025 Are you blind, or do you have serious difficulty seeing, even when wearing glasses No 01/14/2025 11:27 AM Jennifer Antunez, JAJA No [facility] Work Phone: 01-14-2025 Do you have serious difficulty walking or climbing stairs No 01/14/2025 11:27 AM Jennifer Antunez, JAJA No [facility] Work Phone: 01-14-2025 Do you have difficul ty dressing or bathing No 01/14/2025 11:27 AM Jennifer Antnuez, JAJA No [facility] Work Phone: 01-14-2025 Because of a physica l, mental, or emotional condition, do you have difficulty doing errands alone such as visiting a physician's office or shopping No 01/14/2025 11:27 AM Jennifer Antunez, JAJA No [facility] Work Phone: 01-14-2025 Functional status 111/68 025 8:31 AM EST Interface, Masimo Data In 111/68 [facility] 01-14-2025 Vital signs 62 01/14/2025 8: 31 AM EST Interface, Masimo Data In [facility] Work Phone: 01-12-2025 Functional status 135/86 025 7:46 PM EDT Interface, Masimo Data In 135/86 [facility] 01-12-2025 Vital signs 61 01/12/2025 7: 46 PM EDT Interface, Masimo Data In [facility] Work Phone: 01-12-2025 [facility] 01-11-2025 Functional status 130/70 025 8:09 PM EDT Interface, Masimo Data In 130/70 [facility] 01-11-2025 Vital signs 63 01/11/2025 8: 09 PM EDT Interface, Masimo Data In [facility] Work Phone: 01-11-2025 [facility] 01-09-2025 Functional status Nasal cannula 01/09/2025 3:55 PM EDT Gavino Turner, JAJA Nasal cannula [facility] 01-09-2025 Functional status 1 [facility] Work Phone: 01-09-2025 2 01/09/2025 12: 39 PM EDT Home Driscoll DO [facility] Work Phone: 01-09-2025 Blakeslee - suicide severity rating scale screener - recent [C-SSRS] [facility] Work Phone: 01-09-2025 Total score [AUDIT-C] 0 01/10/20 6:35 AM EDT Dominguez Coffey, JAJA [facility] Work Phone: 01-09-2025 Patient Health Questionnaire 2 item (PHQ-2) [Reported] [facility] Work Phone: 01-09-2025 Functional status [facility] Work Phone: 01-09-2025 [facility] Work Phone: 12-31-2024 Functional status Ambulates [facility] Work Phone: 12-30-2024 Functional status None [facility] Work Phone: 12-27-2024 [facility] 12-27-2024 Functional status 1 [facility] Work Phone: 12-27-2024 Functional status Nasal cannula 12/27/2024 1:22 PM EDT Dex Thomson, JAJA Nasal cannula [facility] 12-26-2024 [facility] Work Phone: 12-26-2024 Blakeslee - suicide severity rating scale screener - recent [C-SSRS] [facility] Work Phone: 12-26-2024 Total score [AUDIT-C] 0 12/27/19 11:49 PM EDT Ana Iglesias RN [facility] Work Phone: 12-26-2024 Patient Health Questionnaire 2 item (PHQ-2) [Reported] [facility] Work Phone: 12-26-2024 Functional status [facility] Work Phone: 09-21-2024 Total score [AUDIT-C] 0 09/22/19 25 4:17 AM Kassidy Ochoa RN [facility] Work Phone: 09-21-2024 Patient Health Questionnaire 2 item (PHQ-2) [Reported] [facility] Work Phone: 09-20-2024 Blakeslee - suicide severity rating scale screener - recent [C-SSRS] [facility] Work Phone: 09-14-2024 Functional status Bathroom Privilege [facility] Work Phone: 08-24-2024 Functional status Ambulates [facility] Work Phone: 07-27-2024 Are you deaf, or do you have serious difficulty hearing No 07/27/2024 9:19 AM Zaida Morales, JAJA No [facility] 07-27-2024 Are you blind, or do you have serious difficulty seeing, even when wearing glasses No 07/27/2024 9:19 AM Zaida Morales, JAJA No [facility] 07-27-2024 Do you have serious difficulty walking or climbing stairs No 07/27/2024 9:19 AM Zaida Morales, JAJA No [facility] 07-27-2024 Do you have difficul ty dressing or bathing No 07/27/2024 9:19 AM Zaida Morales, JAJA No [facility] 07-27-2024 Because of a physica l, mental, or emotional condition, do you have difficulty doing errands alone such as visiting a physician's office or shopping No 07/27/2024 9:19 AM Zaida Morales, JAJA No [facility] 07-24-2024 Functional status Up ad petey [facility] Work Phone: 07-22-2024 Functional status Well [facility] Work Phone: 07-08-2024 Are you deaf, or do you have serious difficulty hearing No 07/08/2024 3:50 PM Lor Zamorano, JAJA No [facility] 07-08-2024 Are you blind, or do you have serious difficulty seeing, even when wearing glasses No 07/08/2024 3:50 PM Lor Zamorano, JAJA No [facility] 07-08-2024 Do you have serious difficulty walking or climbing stairs No 07/08/2024 3:50 PM Lor Zamorano RN No [facility] 07-08-2024 Do you have difficul ty dressing or bathing No 07/08/2024 3:50 PM Lor Zamorano, JAJA No [facility] 07-08-2024 Because of a physica l, mental, or emotional condition, do you have difficulty doing errands alone such as visiting a physician's office or shopping No 07/08/2024 3:50 PM Lor Zamorano, JAJA No [facility] 10-31-2023 Functional Status Repositions self [facility] Work Phone: [facility] Mental Status Date Assessment Result Facility 01-14-2025 Because of a physica l, mental, or emotional condition, do you have serious difficulty concentrating, remembering, or making decisions No 01/14/2025 11:27 AM Jennifer Antunez, JAJA No [facility] Work Phone: 01-14-2025 [facility] Work Phone: 01-14-2025 Cognitive function finding Negative [facility] Work Phone: 01-11-2025 Cognitive function finding Negative [facility] Work Phone: 01-09-2025 Cognitive function finding Negative [facility] Work Phone: 01-09-2025 Negative [facility] Work Phone: 01-09-2025 Cognitive function Voice/Name [facility] Work Phone: 12-31-2024 Cognitive function Voice/Name [facility] Work Phone: 12-27-2024 Cognitive function finding Negative 12/27/2024 3:40 PM EDT Jaleesa Ivan RN [facility] 11-23-2024 Cognitive function Drowsy [facility] Work Phone: 11-23-2024 Cognitive function Voice/Name [facility] Work Phone: 09-14-2024 Cognitive function Voice/Name [facility] Work Phone: 08-24-2024 Cognitive function Voice/Name;Touch/Shaki ng [facility] Work Phone: 07-27-2024 Because of a physica l, mental, or emotional condition, do you have serious difficulty concentrating, remembering, or making decisions No 07/27/2024 9:19 AM EDT Zaida Drake, JAJA [facility] 07-24-2024 Cognitive function Voice/Name [facility] Work Phone: 07-12-2024 Cognitive function Voice/Name [facility] Work Phone: 07-08-2024 Because of a physica l, mental, or emotional condition, do you have serious difficulty concentrating, remembering, or making decisions No 07/08/2024 3:50 PM EDT Lor Pham, JAJA No [facility] 05-12-2024 Cognitive function Awake;Alert;A ppropriate;[facility] Work Phone: 12-25-2022 Cognitive function Voice/Name [facility] Work Phone: 12-16-2021 Cognitive function Level Of Cons ciousness Awake;Alert;Appropriate;Fo [facility] Work Phone: Clinical Notes 09-18-2020 to 01-14-2025 Home Driscoll, DO - 01/14/2025 9:32 AM Leonila Driscoll, - 01/13/2025 4:00 PM Margaret Jansen MD - 01/12/2025 12:33 PM EDTMarilee Sheikh, 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-WELL BLOWER - 01/11/2025 2:11 PM EDT Note Date & Type Note Facility 01-14-2025 History of Present illness Narrative Images from the original note were not included. HOSPITAL MEDICINE PROGRESS NOTE: Subjective INTERVAL HISTORY: Michelle Mitchell is a 44 y.o. female was seen and evaluated at bedside today. Overnight, no reported acute events. Patient has mild right chest pain, MSK in nature from ICD lead replacement. Review Of Systems: 11-point ROS was performed and is negative except as noted below and in the HPI. Review of Systems Objective OBJECTIVE: BP 111/68 Pulse 62 Temp 35.8 C (96.4 F) Resp 18 Ht 1.626 m (5' 4") Wt 57.5 kg (126 lb 12.8 oz) SpO2 99% BMI 21.77 kg/m Physical Exam Constitutional: General: She is not in acute distress. HENT: Head: Normocephalic and atraumatic. Nose: Nose normal. Mouth/Throat: Mouth: Mucous membranes are moist. Eyes: Conjunctiva/sclera: Conjunctivae normal. Neck: Trachea: Trachea normal. Cardiovascular: Rate and Rhythm: Normal rate and regular rhythm. Heart sounds: Normal heart sounds. No murmur heard. Pulmonary: Effort: Pulmonary effort is normal. No tachypnea. Breath sounds: Normal breath sounds. Chest: Chest wall: Tenderness (Right sided, over ICD site, improved) present. Abdominal: General: Bowel sounds are normal. Palpations: Abdomen is soft. Tenderness: There is no abdominal tenderness. There is no guarding. Musculoskeletal: General: No swelling. Cervical back: Neck supple. Skin: General: Skin is warm and dry. Neurological: General: No focal deficit present. Mental Status: She is alert and oriented to person, place, and time. LAB WORK: Lab Results Component Value Date WBC 11.9 (H) 01/13/2025 HGB 15.1 01/13/2025 HCT 45.9 01/13/2025 MCV 97 01/13/2025 PLT 253 01/13/2025 Lab Results Component Value Date GLUCOSE 94 01/13/2025 CALCIUM 9.5 01/13/2025 NA 135 (L) 01/13/2025 K 3.9 01/13/2025 CO2 25 01/13/2025 CL 102 01/13/2025 BUN 14 01/13/2025 CREATININE 0.72 01/13/2025 Hemoglobin A1C Date Value Ref Range Status 07/25/2024 5.5 4.3 - 5.6 % Final Comment: [place] [employer] guidelines indicate that patients with HgbA1c in the range 5.7-6.4% are at increased risk for development of diabetes, and intervention by lifestyle modification may be beneficial. HgbA1c greater or equal to 6.5% is considered diagnostic of diabetes. 04/25/2021 5.2 4.3 - 5.6 % Final Comment: [place] [employer] guidelines indicate that patients with HgbA1c in the range 5.7-6.4% are at increased risk for development of diabetes, and intervention by lifestyle modification may be beneficial. HgbA1c greater or equal to 6.5% is considered diagnostic of diabetes. Thyroid Stimulating Hormone Date Value Ref Range Status 01/09/2025 4.82 (H) 0.44 - 3.98 mIU/L Final Cultures: No results found for the last 90 days. IMAGES: XR chest 2 views Final Result No acute cardiopulmonary process. MACRO: None Signed by: Domi Marrero 01/11/2025 12:04 PM Dictation workstation: [id number] US right upper quadrant Final Result Diffusely echogenic liver consistent with hepatic steatosis with mild hepatic contour irregularity, nonspecific, which may reflect early fibrosis/developing cirrhosis. Status post cholecystectomy. MACRO: None Signed by: Duy Harley 01/10/2025 11:54 PM Dictation workstation: [id number] Electrophysiology procedure Final Result Transthoracic Echo (TTE) Limited Final Result CONCLUSIONS: 1. Left ventricular ejection fraction is mildly decreased by visual estimate at 45-50%. 2. There is global hypokinesis of the left ventricle with minor regional variations. 3. Left ventricular diastolic filling is indeterminate. 4. There is moderately increased septal thickness. 5. There is moderate left ventricular hypertrophy. 6. There is normal right ventricular global systolic function. 7. The left atrial size is moderate to severely dilated. 8. The Doppler estimated RVSP is mildly elevated at 39 mmHg. XR chest 1 view Final Result 1. Unipolar right-sided cardiac pacemaker with defibrillator lead as above. 2. Minimal right basilar subsegmental atelectasis. MACRO: none Signed by: Sergio Guzman 01/09/2025 1:59 PM Dictation workstation: [id number] MEDICATIONS: Scheduled: Scheduled Medications[1]Continuous: Continuous Medications[2] PRN: PRN Medications[3] ASSESSMENT & PLAN: Michelle Mitchell is a 44 y.o. female with a PMH of HOCM, HFrEF (EF 40% as of 09/21/24) s/p ICD placement, DVT/PE 2017, PUD, GERD, tobacco use dependence, breast cancer s/p lumpectomy and chemotherapy, ovarian cancer s/p oophorectomy, endometrial cancer s/p ablation, biliary duct obstruction s/p stent placement, anxiety, depression, and migraines, who presented as a transfer from [facility] to [facility] with c/o defibrillator misfiring x3 in the setting of A-fib RVR. Admitted for A-fib RVR. Cardiology consulted, EKG, and CXR ordered. ACUTE MEDICAL ISSUES: Defibrillator discharge s/p ICD lead replacement A-fib RVR, resolved Sinus bradycardia Postop MSK type chest pain Leukocytosis, chronic, stable Transaminitis C. difficile, finished oral vancomycin therapy CHRONIC MEDICAL ISSUES: HOCM HFrEF DVT/PE 2017 PAD GERD Tobacco use disorder Breast cancer s/p lumpectomy and chemotherapy Ovarian cancer s/p oophorectomy Endometrial cancer s/p ablation Biliary duct obstruction s/p stent Anxiety with depression Migraines PLAN: Awaiting to receive Tikosyn while inpatient as meds to beds they are closed over the weekend C. difficile isolation removed, patient finished oral vancomycin Pain control Will plan to receive meds today and be discharged home Nutrition: Cardiac GI ppx: None DVT/PE ppx: Eliquis Abx: None O2: RA Dispo: Anticipate discharge 01/14. Home [facility], [facility] Medicine *This note was dictated using [employer] or [facility] speech recognition software. Please, excuse any grammatical errors*. [1] ALPRAZolam, 0.5 mg, oral, BID apixaban, 5 mg, oral, q12h dofetilide, 375 mcg, oral, q12h PIA empagliflozin, 10 mg, oral, Daily methylPREDNISolone sodium succinate (PF), 125 mg, intravenous, Once metoprolol succinate XL, 25 mg, oral, Daily polyethylene glycol, 17 g, oral, Daily spironolactone, 12.5 mg, oral, Daily zolpidem, 10 mg, oral, Nightly [2] [3] PRN medications: acetaminophen, cyclobenzaprine, HYDROmorphone, melatonin, ondansetron ODT OR ondansetron, sennosides-docusate sodium Images from the original note were not included. HOSPITAL MEDICINE PROGRESS NOTE: Subjective INTERVAL HISTORY: Michelle Mitchell is a 44 y.o. female was seen and evaluated at bedside today. Overnight, no reported acute events. Patient is at no acute distress. Review Of Systems: 11-point ROS was performed and is negative except as noted below and in the HPI. Review of Systems Objective OBJECTIVE: BP 130/75 Pulse 63 Temp 36.4 C (97.5 F) Resp 18 Ht 1.626 m (5' 4") Wt 57.5 kg (126 lb 12.8 oz) SpO2 100% BMI 21.77 kg/m Physical Exam Constitutional: General: She is not in acute distress. HENT: Head: Normocephalic and atraumatic. Nose: Nose normal. Mouth/Throat: Mouth: Mucous membranes are moist. Eyes: Conjunctiva/sclera: Conjunctivae normal. Neck: Trachea: Trachea normal. Cardiovascular: Rate and Rhythm: Normal rate and regular rhythm. Heart sounds: Normal heart sounds. No murmur heard. Pulmonary: Effort: Pulmonary effort is normal. No tachypnea. Breath sounds: Normal breath sounds. Chest: Chest wall: Tenderness (Right sided, over ICD site) present. Abdominal: General: Bowel sounds are normal. Palpations: Abdomen is soft. Tenderness: There is no abdominal tenderness. There is no guarding. Musculoskeletal: General: No swelling. Cervical back: Neck supple. Skin: General: Skin is warm and dry. Neurological: General: No focal deficit present. Mental Status: She is alert and oriented to person, place, and time. LAB WORK: Lab Results Component Value Date WBC 11.9 (H) 01/13/2025 HGB 15.1 01/13/2025 HCT 45.9 01/13/2025 MCV 97 01/13/2025 PLT 253 01/13/2025 Lab Results Component Value Date GLUCOSE 94 01/13/2025 CALCIUM 9.5 01/13/2025 NA 135 (L) 01/13/2025 K 3.9 01/13/2025 CO2 25 01/13/2025 CL 102 01/13/2025 BUN 14 01/13/2025 CREATININE 0.72 01/13/2025 Hemoglobin A1C Date Value Ref Range Status 07/25/2024 5.5 4.3 - 5.6 % Final Comment: [place] [employer] guidelines indicate that patients with HgbA1c in the range 5.7-6.4% are at increased risk for development of diabetes, and intervention by lifestyle modification may be beneficial. HgbA1c greater or equal to 6.5% is considered diagnostic of diabetes. 04/25/2021 5.2 4.3 - 5.6 % Final Comment: [place] [employer] guidelines indicate that patients with HgbA1c in the range 5.7-6.4% are at increased risk for development of diabetes, and intervention by lifestyle modification may be beneficial. HgbA1c greater or equal to 6.5% is considered diagnostic of diabetes. Thyroid Stimulating Hormone Date Value Ref Range Status 01/09/2025 4.82 (H) 0.44 - 3.98 mIU/L Final Cultures: No results found for the last 90 days. IMAGES: XR chest 2 views Final Result No acute cardiopulmonary process. MACRO: None Signed by: Domi Marrero 01/11/2025 12:04 PM Dictation workstation: [id number] US right upper quadrant Final Result Diffusely echogenic liver consistent with hepatic steatosis with mild hepatic contour irregularity, nonspecific, which may reflect early fibrosis/developing cirrhosis. Status post cholecystectomy. MACRO: None Signed by: Duy Harley 01/10/2025 11:54 PM Dictation workstation: [id number] Electrophysiology procedure Final Result Transthoracic Echo (TTE) Limited Final Result CONCLUSIONS: 1. Left ventricular ejection fraction is mildly decreased by visual estimate at 45-50%. 2. There is global hypokinesis of the left ventricle with minor regional variations. 3. Left ventricular diastolic filling is indeterminate. 4. There is moderately increased septal thickness. 5. There is moderate left ventricular hypertrophy. 6. There is normal right ventricular global systolic function. 7. The left atrial size is moderate to severely dilated. 8. The Doppler estimated RVSP is mildly elevated at 39 mmHg. XR chest 1 view Final Result 1. Unipolar right-sided cardiac pacemaker with defibrillator lead as above. 2. Minimal right basilar subsegmental atelectasis. MACRO: none Signed by: Sergio Guzman 01/09/2025 1:59 PM Dictation workstation: [id number] MEDICATIONS: Scheduled: Scheduled Medications[1]Continuous: Continuous Medications[2] PRN: PRN Medications[3] ASSESSMENT & PLAN: Michelle Mitchell is a 44 y.o. female with a PMH of HOCM, HFrEF (EF 40% as of 09/21/24) s/p ICD placement, DVT/PE 2017, PUD, GERD, tobacco use dependence, breast cancer s/p lumpectomy and chemotherapy, ovarian cancer s/p oophorectomy, endometrial cancer s/p ablation, biliary duct obstruction s/p stent placement, anxiety, depression, and migraines, who presented as a transfer from [facility] to [facility] with c/o defibrillator misfiring x3 in the setting of A-fib RVR. Admitted for A-fib RVR. Cardiology consulted, EKG, and CXR ordered. ACUTE MEDICAL ISSUES: Defibrillator discharge s/p ICD lead replacement A-fib RVR, resolved Sinus bradycardia Postop MSK type chest pain Leukocytosis, chronic, stable Transaminitis C. difficile, finished oral vancomycin therapy CHRONIC MEDICAL ISSUES: HOCM HFrEF DVT/PE 2017 PAD GERD Tobacco use disorder Breast cancer s/p lumpectomy and chemotherapy Ovarian cancer s/p oophorectomy Endometrial cancer s/p ablation Biliary duct obstruction s/p stent Anxiety with depression Migraines PLAN: Awaiting to receive Tikosyn while inpatient as meds to beds they are closed over the weekend C. difficile isolation removed, patient finished oral vancomycin Pain control Nutrition: Cardiac GI ppx: None DVT/PE ppx: Eliquis Abx: None O2: RA Dispo: Anticipate discharge 01/14. Home Driscoll DO Hospital Medicine *This note was dictated using [employer] or [facility] speech recognition software. Please, excuse any grammatical errors*. [1] ALPRAZolam, 0.5 mg, oral, BID apixaban, 5 mg, oral, q12h dofetilide, 375 mcg, oral, q12h PIA empagliflozin, 10 mg, oral, Daily methylPREDNISolone sodium succinate (PF), 125 mg, intravenous, Once metoprolol succinate XL, 25 mg, oral, Daily polyethylene glycol, 17 g, oral, Daily spironolactone, 12.5 mg, oral, Daily zolpidem, 10 mg, oral, Nightly [2] [3] PRN medications: acetaminophen, cyclobenzaprine, HYDROmorphone, melatonin, ondansetron ODT OR ondansetron, sennosides-docusate sodium Michelle Mitchell is a 44 y.o. female on day 3 of admission presenting with Defibrillator discharge. Subjective Pt seen and examined. Objective Last Recorded Vitals BP 123/60 (BP Location: Right leg, Patient Position: Lying) Pulse 63 Temp 35.7 C (96.3 F) (Temporal) Resp 16 Wt 57.5 kg (126 lb 12.8 oz) SpO2 99% Intake/Output last 3 Shifts: No intake or output data in the 24 hours ending 01/12/25 1233 Admission Weight Weight: 57.5 kg (126 lb 12.8 oz) (01/09/25 0630) Daily Weight 01/09/25 : 57.5 kg (126 lb 12.8 oz) Physical Exam Constitutional: Appearance: She is not toxic-appearing. HENT: Head: Normocephalic and atraumatic. Cardiovascular: Rate and Rhythm: Normal rate and regular rhythm. Comments: tenderness in the right chest where ICD was placed Pulmonary: Effort: Pulmonary effort is normal. No respiratory distress. Abdominal: Tenderness: There is no abdominal tenderness. There is no guarding. Neurological: General: No focal deficit present. Mental Status: She is alert. Psychiatric: Mood and Affect: Mood normal. Relevant Results Results for orders placed or performed during the hospital encounter of 01/09/25 (from the past 24 hours) CBC Result Value Ref Range WBC 13.3 (H) 4.4 - 11.3 x10*3/uL nRBC 0.0 0.0 - 0.0 /100 WBCs RBC 4.50 4.00 - 5.20 x10*6/uL Hemoglobin 13.8 12.0 - 16.0 g/dL Hematocrit 44.6 36.0 - 46.0 % MCV 99 80 - 100 fL MCH 30.7 26.0 - 34.0 pg MCHC 30.9 (L) 32.0 - 36.0 g/dL RDW 13.8 11.5 - 14.5 % Platelets 219 150 - 450 x10*3/uL Comprehensive Metabolic Panel Result Value Ref Range Glucose 93 74 - 99 mg/dL Sodium 135 (L) 136 - 145 mmol/L Potassium 3.9 3.5 - 5.3 mmol/L Chloride 103 98 - 107 mmol/L Bicarbonate 26 21 - 32 mmol/L Anion Gap 10 10 - 20 mmol/L Urea Nitrogen 15 6 - 23 mg/dL Creatinine 0.76 0.50 - 1.05 mg/dL eGFR >90 >60 mL/min/1.73m*2 Calcium 9.2 8.6 - 10.3 mg/dL Albumin 4.2 3.4 - 5.0 g/dL Alkaline Phosphatase 118 (H) 33 - 110 U/L Total Protein 6.7 6.4 - 8.2 g/dL AST 27 9 - 39 U/L Bilirubin, Total 0.6 0.0 - 1.2 mg/dL ALT 67 (H) 7 - 45 U/L Magnesium Result Value Ref Range Magnesium 1.98 1.60 - 2.40 mg/dL XR chest 2 views Final Result No acute cardiopulmonary process. MACRO: None Signed by: Domi Marrero 01/11/2025 12:04 PM Dictation workstation: [id number] US right upper quadrant Final Result Diffusely echogenic liver consistent with hepatic steatosis with mild hepatic contour irregularity, nonspecific, which may reflect early fibrosis/developing cirrhosis. Status post cholecystectomy. MACRO: None Signed by: Duy Harley 01/10/2025 11:54 PM Dictation workstation: [id number] Electrophysiology procedure Final Result Transthoracic Echo (TTE) Limited Final Result CONCLUSIONS: 1. Left ventricular ejection fraction is mildly decreased by visual estimate at 45-50%. 2. There is global hypokinesis of the left ventricle with minor regional variations. 3. Left ventricular diastolic filling is indeterminate. 4. There is moderately increased septal thickness. 5. There is moderate left ventricular hypertrophy. 6. There is normal right ventricular global systolic function. 7. The left atrial size is moderate to severely dilated. 8. The Doppler estimated RVSP is mildly elevated at 39 mmHg. XR chest 1 view Final Result 1. Unipolar right-sided cardiac pacemaker with defibrillator lead as above. 2. Minimal right basilar subsegmental atelectasis. MACRO: none Signed by: Sergio Guzman 01/09/2025 1:59 PM Dictation workstation: [id number] Cardiac device check - Inpatient (Results Pending) Scheduled medications Scheduled Medications[1] Continuous medications Continuous Medications[2] PRN medications PRN Medications[3] Assessment/Plan This patient currently has cardiac telemetry ordered; if you would like to modify or discontinue the telemetry order, click here to go to the orders activity to modify/discontinue the order. Assessment & Plan Defibrillator discharge Atrial fib/flutter, transient (Multi) C. difficile colitis HFrEF (heart failure with reduced ejection fraction) (Multi) Anxiety Cardiomyopathy, hypertrophic nonobstructive (Multi) Chest pain Michelle Mitchell is a 44 y.o. female known to Dr. Amezcua with a past medical history significant for family history of HCM, HOCM with EF 40% (s/p ICD placement in 2006 with lead revision in 2008, and then explant of the entire device with reimplantation of Medtronic single lead PPM in 2016), with recent normal cardiac catheterization for reduced LV function (EF 55% -> 40%), DVT/PE 2017, breast CA in 1998 (s/p lumpectomy and chemotherapy), ovarian CA in 2006 (s/p oophorectomy), endometrial CA (s/p ablation), gallstone pancreatitis despite a prior cholecystectomy found to have biliary duct obstruction s/p stent placement, and transaminitis. Patient was admitted to [facility] in July of 2024 for evaluation of possible IE and ADHF. Blood cultures drawn 07/24. She was treated with IV Lasix. ID consulted. MICKI showed a thin, filamentous echodensity on the RV lead in the right atrium, measuring ~1.4 cm which appears new from MICKI on 2017. Dr. Fonseca and EP agreed likely fibrous material leftover from the previous device extraction in 2016. She was started Toprol XL [address] Fonseca. She was discharged 07/27/2024. Patient admitted to [facility] for chest pain and underwent a cardiac cath on 12/27/2024. Patient presented to [facility] 01/08/2025 and was transferred to [facility] on 01/09/25 for ICD firing in setting of A. Fib RVR. Cardiology has been consulted for concerns of misfiring ICD. Patient's ICD interrogated by Dr. Rojas at the bedside. She has had episodes of atrial fibrillation with RVR heart rates in the 200's with inappropriate shocks for ICD. Atrial Fibrillation with RVR - Patient with episodes of A. Fib RVR heart rates in the 200's. She has had inappropriate shocks by ICD for these episodes. She also has sinus bradycardia on telemetry which made it more challenging to rate control. Given her underlying transaminitis, Amiodarone was not recommended. - She underwent upgrade to dual chamber ICD 01/09/2025. She is a paced on EKG. - QTC Stable. Continue 375 mcg BID with repeat EKG 2 hours after doses. - Stop Tikosyn if QT >500 or QTC >550 - Consider dose reduction if QT prolongation >15% - NATACHA?DS?-VASc Score of 3. Recommend to resume Eliquis tonight for stroke prophylaxis. - Continue Toprol XL 25 mg daily for now. - Patient's insertion site is painful. Ice does help improve pain. No hematoma, redness, or significant swelling at side. Continue with Ice and ongoing pain meds. She is unable to receive NSAIDs or Toradol given her other medical conditions. - Patient's 5th dose of Tikosyn last night. -Qtc 460 this morning HOCM - Patient known to Dr. Amezcua. She is s/p ICD placement in 2006 with lead revision in 2008, and then explant of the entire device with reimplantation of Medtronic single lead PPM in 2016. - EF previously has been stable 50-55%. Newly found to have reduced LV function in September of 2024. EF noted to be 40%. She developed chest pain recently and underwent cardiac cath on 12/27/2024 which revealed normal coronary arteries. - Repeat echo revealed stable LV function. - Patient appears euvolemic and compensated upon exam. - Recommend to continue Toprol XL 25 mg and Jardiance 10 mg daily - She has been hypertensive today. Resume 12.5 mg Aldactone daily - Low sodium diet C Diff - Continue PO Vancomycin as instructed per ID, 2 more days Transaminitis - Managed per primary team. Follows with outpatient GI - ALT: 117, AST: 79 Patient was supposed to be discharged today, but there was some issue with her prescriptions. Her pharmacy cannot fill Tikosyn until 01/21. outpatient pharmacy is closed today. Probably she will be discharged on Tuesday when she can get all the meds from her pharmacy downstairs. Beatriz Jansen MD [1] ALPRAZolam, 0.5 mg, oral, BID apixaban, 5 mg, oral, q12h dofetilide, 375 mcg, oral, q12h PIA empagliflozin, 10 mg, oral, Daily methylPREDNISolone sodium succinate (PF), 125 mg, intravenous, Once metoprolol succinate XL, 25 mg, oral, Daily polyethylene glycol, 17 g, oral, Daily spironolactone, 12.5 mg, oral, Daily vancomycin, 125 mg, oral, 4x daily zolpidem, 10 mg, oral, Nightly [2] [3] PRN medications: acetaminophen, cyclobenzaprine, HYDROmorphone, melatonin, ondansetron ODT OR ondansetron, sennosides-docusate sodium Cardiology Progress Note Subjective Today, patient seen and assessed. Ongoing insertion site pain but no hematoma, redness, or significant swelling. She denies any heart failure symptoms. ROS: Review of Systems Constitutional: Negative for malaise/fatigue. Cardiovascular: Negative for chest pain, dyspnea on exertion, leg swelling, orthopnea and paroxysmal nocturnal dyspnea. Respiratory: Negative for shortness of breath. Neurological: Negative for dizziness, light-headedness and weakness. Past Medical History: Medical History[1] Problem List Items Addressed This Visit Cardiac and Vasculature Cardiomyopathy, hypertrophic nonobstructive (Multi) Overview - start low dose beta krishan and diuretic given e/o mild volume overload per NTproBNP and imaging Relevant Medications metoprolol succinate XL (Toprol-XL) 24 hr tablet 25 mg Other Relevant Orders Case Request EP Lab: Upgrade to Dual Chamber ICD (Completed) Electrophysiology procedure (Completed) * (Principal) Defibrillator discharge - Primary Relevant Orders Cardiac device check - Inpatient Case Request EP Lab: Upgrade to Dual Chamber ICD (Completed) Electrophysiology procedure (Completed) Atrial fib/flutter, transient (Multi) Relevant Medications metoprolol succinate XL (Toprol-XL) 24 hr tablet 25 mg Other Relevant Orders Transthoracic Echo (TTE) Limited (Completed) Case Request EP Lab: Upgrade to Dual Chamber ICD (Completed) Electrophysiology procedure (Completed) HFrEF (heart failure with reduced ejection fraction) (Multi) Relevant Medications metoprolol succinate XL (Toprol-XL) 24 hr tablet 25 mg melatonin tablet 3 mg acetaminophen (Tylenol) tablet 975 mg dofetilide (Tikosyn) capsule 375 mcg empagliflozin (Jardiance) tablet 10 mg Other Relevant Orders Case Request EP Lab: Upgrade to Dual Chamber ICD (Completed) Electrophysiology procedure (Completed) Other Visit Diagnoses Encounter for other specified special examinations Family History: No relevant family history has been documented for this patient. Social History: Social History Tobacco Use Smoking status: Every Day Current packs/day: 0.50 Types: Cigarettes Smokeless tobacco: Never Substance Use Topics Alcohol use: Never Allergies: Allergies[2] MEDICATION: Scheduled medications Scheduled Medications[3] Continuous medications Continuous Medications[4] PRN medications PRN Medications[5] Assessment & Plan Defibrillator discharge Cardiomyopathy, hypertrophic nonobstructive (Multi) Chest pain Atrial fib/flutter, transient (Multi) C. difficile colitis HFrEF (heart failure with reduced ejection fraction) (Multi) Anxiety OBJECTIVE: Visit Vitals BP 131/81 (BP Location: Right leg, Patient Position: Lying) Pulse 60 Temp 35.9 C (96.6 F) (Temporal) Resp 20 No intake or output data in the 24 hours ending 01/11/25 1411 Physical Exam Physical Exam Constitutional: Appearance: Normal appearance. HENT: Head: Normocephalic and atraumatic. Cardiovascular: Rate and Rhythm: Normal rate and regular rhythm. Pulses: Normal pulses. Heart sounds: Normal heart sounds, S1 normal and S2 normal. Pulmonary: Effort: Pulmonary effort is normal. Breath sounds: Normal breath sounds. Musculoskeletal: Cervical back: Normal range of motion and neck supple. Right lower leg: No edema. Left lower leg: No edema. Skin: General: Skin is warm and dry. Neurological: General: No focal deficit present. Mental Status: She is alert. Psychiatric: Mood and Affect: Mood normal. Recent Image Results Relevant Results: Lab Results Component Value Date WBC 15.9 (H) 01/11/2025 HGB 12.7 01/11/2025 HCT 42.0 01/11/2025 MCV 101 (H) 01/11/2025 PLT 231 01/11/2025 Lab Results Component Value Date CREATININE 0.69 01/11/2025 BUN 17 01/11/2025 NA 139 01/11/2025 K 4.0 01/11/2025 CL 107 01/11/2025 CO2 26 01/11/2025 Assessment/Plan Michelle Mitchell is a 44 y.o. female known to Dr. Amezcua with a past medical history significant for family history of HCM, HOCM with EF 40% (s/p ICD placement in 2006 with lead revision in 2008, and then explant of the entire device with reimplantation of Medtronic single lead PPM in 2016), with recent normal cardiac catheterization for reduced LV function (EF 55% -> 40%), DVT/PE 2016, breast CA in 1998 (s/p lumpectomy and chemotherapy), ovarian CA in 2006 (s/p oophorectomy), endometrial CA (s/p ablation), gallstone pancreatitis despite a prior cholecystectomy found to have biliary duct obstruction s/p stent placement, and transaminitis. Patient was admitted to [facility] in July of 2024 for evaluation of possible IE and ADHF. Blood cultures drawn 07/24. She was treated with IV Lasix. ID consulted. MICKI showed a thin, filamentous echodensity on the RV lead in the right atrium, measuring ~1.4 cm which appears new from MICKI on 2016. Dr. Fonseca and EP agreed likely fibrous material leftover from the previous device extraction in 2016. She was started Toprol XL [address] Fonseca. She was discharged 07/27/2024. Patient admitted to [facility] for chest pain and underwent a cardiac cath on 12/27/2024. Patient presented to [facility] 01/08/2025 and was transferred to [facility] on 01/09/25 for ICD firing in setting of A. Fib RVR. Cardiology has been consulted for concerns of misfiring ICD. Patient's ICD interrogated by Dr. Rojas at the bedside. She has had episodes of atrial fibrillation with RVR heart rates in the 200's with inappropriate shocks for ICD. Atrial Fibrillation with RVR - Patient with episodes of A. Fib RVR heart rates in the 200's. She has had inappropriate shocks by ICD for these episodes. She also has sinus bradycardia on telemetry which made it more challenging to rate control. Given her underlying transaminitis, Amiodarone was not recommended. - She underwent upgrade to dual chamber ICD 01/09/2025. She is a paced on EKG. - QTC Stable. Continue 375 mcg BID with repeat EKG 2 hours after doses. - Stop Tikosyn if QT >500 or QTC >550 - Consider dose reduction if QT prolongation >15% - NATACHA?DS?-VASc Score of 3. Recommend to resume Eliquis tonight for stroke prophylaxis. - Continue Toprol XL 25 mg daily for now. - Recommend to keep K>4, Mg>2 - TSH: 4.82 - Patient's insertion site is painful. Ice does help improve pain. No hematoma, redness, or significant swelling at side. Continue with Ice and ongoing pain meds. She is unable to receive NSAIDs or Toradol given her other medical conditions. - Patient's 5th dose of Tikosyn is tonight. Ok to discharge tomorrow if Qtc remains stable. HOCM - Patient known to Dr. Amezcua. She is s/p ICD placement in 2006 with lead revision in 2008, and then explant of the entire device with reimplantation of Medtronic single lead PPM in 2016. - EF previously has been stable 50-55%. Newly found to have reduced LV function in September of 2024. EF noted to be 40%. She developed chest pain recently and underwent cardiac cath on 12/27/2024 which revealed normal coronary arteries. - Repeat echo revealed stable LV function. - BNP 812 - Patient appears euvolemic and compensated upon exam. - Recommend to continue Toprol XL 25 mg and Jardiance 10 mg daily - She has been hypertensive today. Resume 12.5 mg Aldactone daily - Daily weights - Monitor intake and output closely - Low sodium diet C Diff - Continue PO Vancomycin as instructed per ID Transaminitis - Managed per primary team. Follows with outpatient GI - ALT: 117, AST: [address] Rojas. Cardiology will continue to follow. Please contact with any questions or concerns. ALEXANDRA Tyler [1] No past medical history on file. [2] Allergies Allergen Reactions [place] Anaphylaxis Shellfish Derived Anaphylaxis Tigan [Trimethobenzamide] Anaphylaxis Pt tolerates benadryl Vicodin [Hydrocodone-Acetaminophen] Shortness of breath Levofloxacin Unknown Morphine Hives Prozac [Fluoxetine] Other Suicidal ideation Ultram [Tramadol] Hives Azithromycin Itching, Rash and Nausea/vomiting Codeine Rash [3] ALPRAZolam, 0.5 mg, oral, BID dofetilide, 375 mcg, oral, q12h PIA empagliflozin, 10 mg, oral, Daily magnesium sulfate, 2 g, intravenous, Once methylPREDNISolone sodium succinate (PF), 125 mg, intravenous, Once metoprolol succinate XL, 25 mg, oral, Daily polyethylene glycol, 17 g, oral, Daily vancomycin, 125 mg, oral, 4x daily zolpidem, 10 mg, oral, Nightly [4] [5] PRN medications: acetaminophen, cyclobenzaprine, HYDROmorphone, melatonin, ondansetron ODT OR ondansetron, sennosides-docusate sodium Michelle Mitchell is a 44 y.o. female on day 2 of admission presenting with Defibrillator discharge. Subjective Patient seen and examined. Denies any fevers or chills but complaining of pain in the ICD site. No shortness of breath, continues to have loose stools but says that she has always had loose stools. Objective Physical Exam Constitutional: Appearance: She is not toxic-appearing. HENT: Head: Normocephalic and atraumatic. Cardiovascular: Rate and Rhythm: Normal rate and regular rhythm. Comments: Exquisite tenderness in the right chest where ICD was placed Pulmonary: Effort: Pulmonary effort is normal. No respiratory distress. Abdominal: Tenderness: There is no abdominal tenderness. There is no guarding. Neurological: General: No focal deficit present. Mental Status: She is alert. Psychiatric: Mood and Affect: Mood normal. Last Recorded Vitals Blood pressure 156/68, pulse 60, temperature 36.2 C (97.2 F), temperature source Temporal, resp. rate 18, height 1.626 m (5' 4"), weight 57.5 kg (126 lb 12.8 oz), SpO2 97%. Intake/Output last 3 Shifts: I/O last 3 completed shifts: In: 643 (11.2 mL/kg) [I.V.:93 (1.6 mL/kg); IV Piggyback:550] Out: - (0 mL/kg) Weight: 57.5 kg Relevant Results This patient currently has cardiac telemetry ordered; if you would like to modify or discontinue the telemetry order, click here to go to the orders activity to modify/discontinue the order. Assessment & Plan Defibrillator discharge Atrial fib/flutter, transient (Multi) C. difficile colitis HFrEF (heart failure with reduced ejection fraction) (Multi) Anxiety Cardiomyopathy, hypertrophic nonobstructive (Multi) Chest pain Michelle Mitchell is a 44 y.o. female with a PMH of HOCM, HFrEF (EF 40% as of 09/21/24) s/p ICD placement, DVT/PE 2017, PUD, GERD, tobacco use dependence, breast cancer s/p lumpectomy and chemotherapy, ovarian cancer s/p oophorectomy, endometrial cancer s/p ablation, biliary duct obstruction s/p stent placement, anxiety, depression, and migraines, who presented as a transfer from [facility] to [facility] with c/o defibrillator misfiring x3 in the setting of A-fib RVR Patient's heart rate and blood pressure has been stable He has been started on Tikosyn, 2 days to 3 and 4 Will need to be monitored for at least 5 doses QTc is within normal limits Continue home dose Toprol, if blood pressure continues to run high may need to restart spironolactone Continue Jardiance On Xanax and Ambien for anxiety/insomnia Eliquis to be started by cardiology Diarrhea is improving, on oral vancomycin Will need 2 more days Will order chest x-ray due to complaint of pain at the previous ICD site Liver enzymes have been trending down, mild elevation is secondary to fatty liver disease Supportive care, symptomatic treatment DVT prophylaxis Eric De La O MD Infectious disease progress note Subjective ICD misfire; explanted defibrillator 01-09-2025 C. difficile positive/toxin - 12-30-2024 at [facility] Leukocytosis downtrending Antibiotics IV Vanco DC'd P.o. Vanco day 9 out of 10 days Objective Range of Vitals (last 24 hours) Heart Rate: [60-75] Temp: [36.2 C (97.2 F)-36.8 C (98.2 F)] Resp: [18-20] BP: (139-156)/(68-81) SpO2: [96 %-97 %] Daily Weight 01/09/25 : 57.5 kg (126 lb 12.8 oz) Body mass index is 21.77 kg/m . Physical Exam HEENT PERRLA Defibrillator site with dressing in place CVS S1-S2 regular Patient states stools are just 1 or 2 a day and no worsening of diarrhea Relevant Results Labs Lab Results Component Value Date WBC 15.9 (H) 01/11/2025 HGB 12.7 01/11/2025 HCT 42.0 01/11/2025 MCV 101 (H) 01/11/2025 PLT 231 01/11/2025 Lab Results Component Value Date GLUCOSE 89 01/11/2025 CALCIUM 9.2 01/11/2025 NA 139 01/11/2025 K 4.0 01/11/2025 CO2 26 01/11/2025 CL 107 01/11/2025 BUN 17 01/11/2025 CREATININE 0.69 01/11/2025 ESR: --No results found for: "SEDRATE"No results found for: CRP Lab Results Component Value Date ALT 79 (H) 01/11/2025 AST 30 01/11/2025 ALKPHOS 117 (H) 01/11/2025 BILITOT 0.5 01/11/2025 Microbiology No cultures taken from defibrillators Imaging 01-09-2025 chest x-ray unipolar right sided cardiac pacemaker with defibrillator lead Assessment/Plan 1. Continue 2 more days with oral Vanco 2. Await discharge Other issue [place] HFrEF status post ICD placement now explanted DVT/PE in 2017 Breast cancer Ovarian cancer Endometrial cancer I reviewed and interpreted all lab test imaging studies and documentations from other healthcare providers I am monitoring for antibiotic side effects and toxicity Mendy Schwarz MD Images from the original note were not included. HOSPITAL MEDICINE PROGRESS NOTE: Subjective INTERVAL HISTORY: Michelle Mitchell is a 44 y.o. female was seen and evaluated at bedside today. Overnight, no reported acute events. Patient complains of MSK chest pain post-procedure. Denies fever, chills, SOB. Review Of Systems: 11-point ROS was performed and is negative except as noted below and in the HPI. Review of Systems Objective OBJECTIVE: BP 104/55 (BP Location: Right arm, Patient Position: Lying) Pulse 61 Temp 36.2 C (97.2 F) (Temporal) Resp 16 Ht 1.626 m (5' 4") Wt 57.5 kg (126 lb 12.8 oz) SpO2 98% BMI 21.77 kg/m Physical Exam Constitutional: General: She is not in acute distress. HENT: Head: Normocephalic and atraumatic. Nose: Nose normal. Mouth/Throat: Mouth: Mucous membranes are moist. Eyes: Conjunctiva/sclera: Conjunctivae normal. Neck: Trachea: Trachea normal. Cardiovascular: Rate and Rhythm: Regular rhythm. Bradycardia present. Heart sounds: Normal heart sounds. No murmur heard. Pulmonary: Effort: Pulmonary effort is normal. No tachypnea. Breath sounds: Normal breath sounds. Chest: Chest wall: Tenderness (Right-sided) present. Abdominal: General: Bowel sounds are normal. Palpations: Abdomen is soft. Tenderness: There is no abdominal tenderness. There is no guarding. Musculoskeletal: General: No swelling. Cervical back: Neck supple. Skin: General: Skin is warm and dry. Neurological: General: No focal deficit present. Mental Status: She is alert and oriented to person, place, and time. LAB WORK: Lab Results Component Value Date WBC 18.4 (H) 01/10/2025 HGB 13.3 01/10/2025 HCT 42.2 01/10/2025 MCV 100 01/10/2025 PLT 171 01/10/2025 Lab Results Component Value Date GLUCOSE 159 (H) 01/10/2025 CALCIUM 9.4 01/10/2025 NA 133 (L) 01/10/2025 K 4.2 01/10/2025 CO2 20 (L) 01/10/2025 CL 105 01/10/2025 BUN 13 01/10/2025 CREATININE 0.74 01/10/2025 Hemoglobin A1C Date Value Ref Range Status 07/25/2024 5.5 4.3 - 5.6 % Final Comment: [place] [employer] guidelines indicate that patients with HgbA1c in the range 5.7-6.4% are at increased risk for development of diabetes, and intervention by lifestyle modification may be beneficial. HgbA1c greater or equal to 6.5% is considered diagnostic of diabetes. 04/25/2021 5.2 4.3 - 5.6 % Final Comment: [place] [employer] guidelines indicate that patients with HgbA1c in the range 5.7-6.4% are at increased risk for development of diabetes, and intervention by lifestyle modification may be beneficial. HgbA1c greater or equal to 6.5% is considered diagnostic of diabetes. Thyroid Stimulating Hormone Date Value Ref Range Status 01/09/2025 4.82 (H) 0.44 - 3.98 mIU/L Final Cultures: No results found for the last 90 days. IMAGES: Electrophysiology procedure Final Result Transthoracic Echo (TTE) Limited Final Result CONCLUSIONS: 1. Left ventricular ejection fraction is mildly decreased by visual estimate at 45-50%. 2. There is global hypokinesis of the left ventricle with minor regional variations. 3. Left ventricular diastolic filling is indeterminate. 4. There is moderately increased septal thickness. 5. There is moderate left ventricular hypertrophy. 6. There is normal right ventricular global systolic function. 7. The left atrial size is moderate to severely dilated. 8. The Doppler estimated RVSP is mildly elevated at 39 mmHg. XR chest 1 view Final Result 1. Unipolar right-sided cardiac pacemaker with defibrillator lead as above. 2. Minimal right basilar subsegmental atelectasis. MACRO: none Signed by: Sergio Guzman 01/09/2025 1:59 PM Dictation workstation: [id number] MEDICATIONS: Scheduled: Scheduled Medications[1]Continuous: Continuous Medications[2] PRN: PRN Medications[3] ASSESSMENT & PLAN: Michelle Mitchell is a 44 y.o. female with a PMH of HOCM, HFrEF (EF 40% as of 09/21/24) s/p ICD placement, DVT/PE 2017, PUD, GERD, tobacco use dependence, breast cancer s/p lumpectomy and chemotherapy, ovarian cancer s/p oophorectomy, endometrial cancer s/p ablation, biliary duct obstruction s/p stent placement, anxiety, depression, and migraines, who presented as a transfer from [facility] to [facility] with c/o defibrillator misfiring x3 in the setting of A-fib RVR. ACUTE MEDICAL ISSUES: A-fib RVR, resolved, s/p ICD lead replaced on 01/09 Sinus bradycardia, resolved MSK type chest pain, postprocedure, controlled Leukocytosis Transaminitis CHRONIC MEDICAL ISSUES: HOCM HFrEF EF 40% s/p ICD DVT/PE 2017 PAD GERD Tobacco use disorder Breast cancer s/p lumpectomy and chemotherapy Ovarian cancer s/p oophorectomy Endometrial cancer s/p ablation Biliary duct obstruction s/p stent Anxiety with depression Migraines PLAN: Cardiology consulted, replaced ICD lead on 01/09, plan to continue Tikosyn and restart DOAC on 01/11 ID following for C.diff, continue oral Vancomycin to complete 10 day course Continue home Toprolol XL and Jardiance Holding Aldactone and Furosemide per cardiology, does not appear in fluid overload, BP are soft TTE reveled 45-50% EF with moderately increased septal thickness, increased LV hypertrophy, and mod-severely dilated LA RUQ US ordered to rule out liver cirrhosis or THAPA Trend liver enzymes and WBC, ethanol negative Nutrition: Regular GI ppx: None DVT/PE ppx: Low score but planned to start DOAC tomorrow Abx: Oral Vancomycin O2: RA Dispo: Possibly discharge on 01/12. Home [place], [facility] *This note was dictated using [employer] or [facility] speech recognition software. Please, excuse any grammatical errors*. [1] ALPRAZolam, 0.5 mg, oral, BID dofetilide, 375 mcg, oral, q12h PIA empagliflozin, 10 mg, oral, Daily methylPREDNISolone sodium succinate (PF), 125 mg, intravenous, Once metoprolol succinate XL, 25 mg, oral, Daily polyethylene glycol, 17 g, oral, Daily vancomycin, 125 mg, oral, 4x daily zolpidem, 10 mg, oral, Nightly [2] [3] PRN medications: acetaminophen, cyclobenzaprine, HYDROmorphone, melatonin, ondansetron ODT OR ondansetron, sennosides-docusate sodium Cardiology Progress Note Subjective Today, patient seen and assessed resting in bed. She denies shortness of breath, orthopnea, or PND. She has localized right chest wall pain around ICD site s/p ICD Upgrade yesterday. Echo yesterday revealed stable LV function. Patient as started on Tikosyn last night. ROS: Review of Systems Constitutional: Positive for malaise/fatigue. Cardiovascular: Positive for chest pain (Right chest wall). Negative for dyspnea on exertion, leg swelling, orthopnea and paroxysmal nocturnal dyspnea. Respiratory: Negative for shortness of breath. Neurological: Negative for dizziness, light-headedness and weakness. Past Medical History: Medical History[1] Problem List Items Addressed This Visit Cardiac and Vasculature Cardiomyopathy, hypertrophic nonobstructive (Multi) Overview - start low dose beta krishan and diuretic given e/o mild volume overload per NTproBNP and imaging Relevant Medications metoprolol succinate XL (Toprol-XL) 24 hr tablet 25 mg Other Relevant Orders Case Request EP Lab: Upgrade to Dual Chamber ICD (Completed) Electrophysiology procedure (Completed) * (Principal) Defibrillator discharge - Primary Relevant Orders Cardiac device check - Inpatient Case Request EP Lab: Upgrade to Dual Chamber ICD (Completed) Electrophysiology procedure (Completed) Atrial fib/flutter, transient (Multi) Relevant Medications metoprolol succinate XL (Toprol-XL) 24 hr tablet 25 mg Other Relevant Orders Transthoracic Echo (TTE) Limited (Completed) Case Request EP Lab: Upgrade to Dual Chamber ICD (Completed) Electrophysiology procedure (Completed) HFrEF (heart failure with reduced ejection fraction) (Multi) Relevant Medications metoprolol succinate XL (Toprol-XL) 24 hr tablet 25 mg melatonin tablet 3 mg acetaminophen (Tylenol) tablet 975 mg lactated Ringer's bolus 1,000 mL (Completed) dofetilide (Tikosyn) capsule 250 mcg (Completed) dofetilide (Tikosyn) capsule 250 mcg Other Relevant Orders Case Request EP Lab: Upgrade to Dual Chamber ICD (Completed) Electrophysiology procedure (Completed) Other Visit Diagnoses Encounter for other specified special examinations Family History: No relevant family history has been documented for this patient. Social History: Social History Tobacco Use Smoking status: Every Day Current packs/day: 0.50 Types: Cigarettes Smokeless tobacco: Never Substance Use Topics Alcohol use: Never Allergies: Allergies[2] MEDICATION: Scheduled medications Scheduled Medications[3] Continuous medications Continuous Medications[4] PRN medications PRN Medications[5] Assessment & Plan Defibrillator discharge Cardiomyopathy, hypertrophic nonobstructive (Multi) Chest pain Atrial fib/flutter, transient (Multi) C. difficile colitis HFrEF (heart failure with reduced ejection fraction) (Multi) Anxiety OBJECTIVE: Visit Vitals BP 104/55 (BP Location: Right arm, Patient Position: Lying) Pulse 61 Temp 36.2 C (97.2 F) (Temporal) Resp 16 Intake/Output Summary (Last 24 hours) at 01/10/2025 0941 Last data filed at 01/09/2025 2145 Gross per 24 hour Intake 493 ml Output 10 ml Net 483 ml Physical Exam Physical Exam Constitutional: Appearance: Normal appearance. She is normal weight. HENT: Head: Normocephalic and atraumatic. Cardiovascular: Rate and Rhythm: Normal rate and regular rhythm. Pulses: Normal pulses. Heart sounds: Normal heart sounds, S1 normal and S2 normal. No murmur heard. Pulmonary: Effort: Pulmonary effort is normal. Breath sounds: Normal breath sounds. Musculoskeletal: Cervical back: Normal range of motion and neck supple. Right lower leg: No edema. Left lower leg: No edema. Skin: General: Skin is warm and dry. Neurological: General: No focal deficit present. Mental Status: She is alert. Psychiatric: Mood and Affect: Mood normal. Recent Image Results Electrocardiogram 12 Lead Normal sinus rhythm Biatrial enlargement Left anterior fascicular block Nonspecific ST and T wave abnormality Abnormal ECG When compared with ECG of 29-OCT-2025 22:27, (unconfirmed) No significant change was found ECG 12 lead Sinus bradycardia Possible Left atrial enlargement Incomplete right bundle branch block Left anterior fascicular block Abnormal ECG When compared with ECG of 09-JAN-2025 11:26, (unconfirmed) No significant change was found Relevant Results: Lab Results Component Value Date WBC 18.4 (H) 01/10/2025 HGB 13.3 01/10/2025 HCT 42.2 01/10/2025 MCV 100 01/10/2025 PLT 171 01/10/2025 Lab Results Component Value Date CREATININE 0.74 01/10/2025 BUN 13 01/10/2025 NA 133 (L) 01/10/2025 K 4.2 01/10/2025 CL 105 01/10/2025 CO2 20 (L) 01/10/2025 Assessment/Plan Michelle Mitchell is a 44 y.o. female known to Dr. Amezcua with a past medical history significant for family history of HCM, HOCM with EF 40% (s/p ICD placement in 2006 with lead revision in 2008, and then explant of the entire device with reimplantation of Medtronic single lead PPM in 2016), with recent normal cardiac catheterization for reduced LV function (EF 55% -> 40%), DVT/PE 2016, breast CA in 1998 (s/p lumpectomy and chemotherapy), ovarian CA in 2006 (s/p oophorectomy), endometrial CA (s/p ablation), gallstone pancreatitis despite a prior cholecystectomy found to have biliary duct obstruction s/p stent placement, and transaminitis. Patient was admitted to [facility] in July of 2024 for evaluation of possible IE and ADHF. Blood cultures drawn 07/24. She was treated with IV Lasix. ID consulted. MICKI showed a thin, filamentous echodensity on the RV lead in the right atrium, measuring ~1.4 cm which appears new from MICKI on 2016. Dr. Fonseca and EP agreed likely fibrous material leftover from the previous device extraction in 2016. She was started Toprol XL [address] Fonseca. She was discharged 07/27/2024. Patient admitted to [facility] for chest pain and underwent a cardiac cath on 12/27/2024. Patient presented to [facility] 01/08/2025 and was transferred to [facility] on 01/09/25 for ICD firing in setting of A. Fib RVR. Cardiology has been consulted for concerns of misfiring ICD. Patient's ICD interrogated by Dr. Rojas at the bedside. She has had episodes of atrial fibrillation with RVR heart rates in the 200's with inappropriate shocks for ICD. Atrial Fibrillation with RVR - Patient with episodes of A. Fib RVR heart rates in the 200's. She has had inappropriate shocks by ICD for these episodes. She also has sinus bradycardia on telemetry which made it more challenging to rate control. Given her underlying transaminitis, Amiodarone was not recommended. - She underwent upgrade to dual chamber ICD yesterday. She is a paced on EKG. - Patient started on Tikosyn 250 mcg yesterday. Qtc remains stable. Will increased to 375 mcg BID with repeat EKG 2 hours after doses. - Stop Tikosyn if QT >500 or QTC >550 - Consider dose reduction if QT prolongation >15% - NATACHA?DS?-VASc Score of 3. She should be restarted on Eliquis 48 hours after ICD upgrade. Potentially tomorrow evening. - Continue Toprol XL 25 mg daily for now. - Recommend to keep K>4, Mg>2 - TSH: 4.82 HOCM - Patient known to Dr. Amezcua. She is s/p ICD placement in 2006 with lead revision in 2008, and then explant of the entire device with reimplantation of Medtronic single lead PPM in 2016. - EF previously has been stable 50-55%. Newly found to have reduced LV function in September of 2024. EF noted to be 40%. She developed chest pain recently and underwent cardiac cath on 12/27/2024 which revealed normal coronary arteries. - Repeat echo revealed stable LV function. - BNP 812 - Patient appears euvolemic and compensated upon exam. - She has been stared on Aldactone, Toprol XL, Jardiance, and she uses PRN lasix. - Recommend to continue Toprol XL 25 mg and resume Jardiance 10 mg daily - Ok to hold Aldactone and lasix for now as she appears euvolemic upon exam and blood pressure remains soft. - Daily weights - Monitor intake and output closely - Low sodium diet C Diff - Will consult infectious disease. Appreciate input regarding PPM upgrade. - Continue PO Vancomycin Transaminitis - Managed per primary team. Follows with outpatient GI - ALT: 128, AST: [address] Rojas. Cardiology will continue to follow. Please contact with any questions or concerns. Marilee Sheikh APRN-SYDNI [1] No past medical history on file. [2] Allergies Allergen Reactions [place] Anaphylaxis Shellfish Derived Anaphylaxis Tigan [Trimethobenzamide] Anaphylaxis Pt tolerates benadryl Vicodin [Hydrocodone-Acetaminophen] Shortness of breath Levofloxacin Unknown Morphine Hives Prozac [Fluoxetine] Other Suicidal ideation Ultram [Tramadol] Hives Azithromycin Itching, Rash and Nausea/vomiting Codeine Rash [3] ALPRAZolam, 0.5 mg, oral, BID dofetilide, 250 mcg, oral, q12h PIA methylPREDNISolone sodium succinate (PF), 125 mg, intravenous, Once metoprolol succinate XL, 25 mg, oral, Daily polyethylene glycol, 17 g, oral, Daily vancomycin, 15 mg/kg, intravenous, Once vancomycin, 125 mg, oral, 4x daily zolpidem, 10 mg, oral, Nightly [4] [5] PRN medications: acetaminophen, cyclobenzaprine, HYDROmorphone, melatonin, ondansetron ODT OR ondansetron, sennosides-docusate sodium Infectious disease progress note Subjective ICD misfire; explanted defibrillator 01-09-2025 C. difficile positive/toxin - 12-30-2024 at [facility] Antibiotics IV Vanco P.o. Vanco day 8 Objective Range of Vitals (last 24 hours) Heart Rate: [60-63] Temp: [35.9 C (96.6 F)-36.4 C (97.5 F)] Resp: [16] BP: (104-109)/(55-60) SpO2: [96 %-98 %] Daily Weight 01/09/25 : 57.5 kg (126 lb 12.8 oz) Body mass index is 21.77 kg/m . Physical Exam HEENT PERRLA Defibrillator site with dressing in place CVS S1-S2 regular Relevant Results Labs Lab Results Component Value Date WBC 18.4 (H) 01/10/2025 HGB 13.3 01/10/2025 HCT 42.2 01/10/2025 MCV 100 01/10/2025 PLT 171 01/10/2025 Lab Results Component Value Date GLUCOSE 159 (H) 01/10/2025 CALCIUM 9.4 01/10/2025 NA 133 (L) 01/10/2025 K 4.2 01/10/2025 CO2 20 (L) 01/10/2025 CL 105 01/10/2025 BUN 13 01/10/2025 CREATININE 0.74 01/10/2025 ESR: --No results found for: "SEDRATE"No results found for: CRP Lab Results Component Value Date ALT 128 (H) 01/10/2025 AST 91 (H) 01/10/2025 ALKPHOS 129 (H) 01/10/2025 BILITOT 1.1 01/10/2025 Microbiology No cultures taken from defibrillators Imaging 01-09-2025 chest x-ray unipolar right sided cardiac pacemaker with defibrillator lead Assessment/Plan 1. Would not continue IV Vanco just recommended preop antibiotic prior to her explant 2. Would continue with oral Vanco 125 p.o. 4 times daily for 3 days then discontinue Other issue [place] HFrEF status post ICD placement now explanted DVT/PE in 2017 Breast cancer Ovarian cancer Endometrial cancer I reviewed and interpreted all lab test imaging studies and documentations from other healthcare providers I am monitoring for antibiotic side effects and toxicity Mendy Schwarz MD 01/09/25 1205 Discharge Planning Living Arrangements Spouse/significant other Support Systems Spouse/significant other Type of Residence Private residence Who is requesting discharge planning? Provider Expected Discharge Disposition Home Stroke Family Assessment Stroke Family Assessment Needed No Intensity of Service Intensity of Service 0-30 min Pt admit for firing of her AICD, cardiology consulted. Pt denies any needs. DC plan is for home at discharge. Anabell Holland RN TCC documented in this encounter [facility] Work Phone: 01-14-2025 Miscellaneous Notes Problem: Pain - Adult Goal: Verbalizes/displays adequate [...] appropriate for maintaining nutritional needs Outcome: Progressing Problem: Heart Failure Goal: Improved gas exchange [...] involvement in 24 hours Outcome: Progressing Problem: Fall/Injury Goal: Not fall by end of shift Outcome: Progressing Goal: Be free from injury by end of the shift Outcome: Progressing Goal: Verbalize understanding of personal risk factors for fall in the hospital Outcome: Progressing Goal: Verbalize understanding of risk factor reduction measures to prevent injury from fall in the home Outcome: Progressing Goal: Use assistive devices by end of the shift Outcome: Progressing Goal: Pace activities to prevent fatigue by end of the shift Outcome: Progressing Problem: Pain Goal: Takes deep breaths with improved pain control throughout the shift Outcome: Progressing Goal: Turns in bed with improved pain control throughout the shift Outcome: Progressing Goal: Walks with improved pain control throughout the shift Outcome: Progressing Goal: Performs ADL's with improved pain control throughout shift Outcome: Progressing Goal: Participates in PT with improved pain control throughout the shift Outcome: Progressing Goal: Free from opioid side effects throughout the shift Outcome: Progressing Goal: Free from acute confusion related to pain meds throughout the shift Outcome: Progressing The patient's goals for the shift include The clinical goals for the shift include maintain safety and pain management Over the shift, the patient did not make progress toward the following goals. Barriers to progression include PAIN. The patient's goals for the shift include rest The clinical goals for the shift include maintain safety and pain management Problem: Pain - Adult Goal: Verbalizes/displays adequate [...] appropriate for maintaining nutritional needs Outcome: Progressing Problem: Heart Failure Goal: Improved gas exchange [...] involvement in 24 hours Outcome: Progressing Problem: Fall/Injury Goal: Not fall by end of shift Outcome: Progressing Goal: Be free from injury by end of the shift Outcome: Progressing Goal: Verbalize understanding of personal risk factors for fall in the hospital Outcome: Progressing Goal: Verbalize understanding of risk factor reduction measures to prevent injury from fall in the home Outcome: Progressing Goal: Use assistive devices by end of the shift Outcome: Progressing Goal: Pace activities to prevent fatigue by end of the shift Outcome: Progressing Problem: Pain Goal: Takes deep breaths with improved pain control throughout the shift Outcome: Progressing Goal: Turns in bed with improved pain control throughout the shift Outcome: Progressing Goal: Walks with improved pain control throughout the shift Outcome: Progressing Goal: Performs ADL's with improved pain control throughout shift Outcome: Progressing Goal: Participates in PT with improved pain control throughout the shift Outcome: Progressing Goal: Free from opioid side effects throughout the shift Outcome: Progressing Goal: Free from acute confusion related to pain meds throughout the shift Outcome: Progressing Problem: Pain - Adult Goal: Verbalizes/displays adequate comfort level or baseline comfort level Outcome: Progressing pain controlled with iv pain meds Problem: Safety - Adult Goal: Free from fall injury Outcome: Progressing, bed locked and low call light in reach Problem: Nutrition Goal: Nutrient intake appropriate for maintaining nutritional needs Outcome: Progressing Problem: Heart Failure Goal: Improved gas exchange [...] involvement in 24 hours Outcome: Progressing Problem: Fall/Injury Goal: Not fall by end of shift Outcome: Progressing Goal: Be free from injury by end of the shift Outcome: Progressing Goal: Verbalize understanding of personal risk factors for fall in the hospital Outcome: Progressing Goal: Verbalize understanding of risk factor reduction measures to prevent injury from fall in the home Outcome: Progressing Goal: Use assistive devices by end of the shift Outcome: Progressing Goal: Pace activities to prevent fatigue by end of the shift Outcome: Progressing Problem: Pain Goal: Takes deep breaths with improved pain control throughout the shift Outcome: Progressing Goal: Turns in bed with improved pain control throughout the shift Outcome: Progressing Goal: Walks with improved pain control throughout the shift Outcome: Progressing Goal: Performs ADL's with improved pain control throughout shift Outcome: Progressing Goal: Participates in PT with improved pain control throughout the shift Outcome: Progressing Goal: Free from opioid side effects throughout the shift Outcome: Progressing Goal: Free from acute confusion related to pain meds throughout the shift Outcome: Progressing Problem: Discharge Planning Goal: Discharge to home or other facility with appropriate resources Outcome: Progressing The patient's goals for the shift include ensure everything is in place for discharge, pain medication and cardiac meds. Pt to be discharged 01/14 The clinical goals for the shift include comfort and safety Over the shift, the patient did not make progress toward the following goals. Barriers to progression include pain and medication availability. Recommendations to address these barriers include assess pain and administer as prescribed, pharmacy to provide home meds via bedside 01/14 Problem: Pain - Adult Goal: Verbalizes/displays adequate [...] appropriate for maintaining nutritional needs Outcome: Progressing Problem: Heart Failure Goal: Improved gas exchange [...] involvement in 24 hours Outcome: Progressing Problem: Fall/Injury Goal: Not fall by end of shift Outcome: Progressing Goal: Be free from injury by end of the shift Outcome: Progressing Goal: Verbalize understanding of personal risk factors for fall in the hospital Outcome: Progressing Goal: Verbalize understanding of risk factor reduction measures to prevent injury from fall in the home Outcome: Progressing Goal: Use assistive devices by end of the shift Outcome: Progressing Goal: Pace activities to prevent fatigue by end of the shift Outcome: Progressing Problem: Pain Goal: Takes deep breaths with improved pain control throughout the shift Outcome: Progressing Goal: Turns in bed with improved pain control throughout the shift Outcome: Progressing Goal: Walks with improved pain control throughout the shift Outcome: Progressing Goal: Performs ADL's with improved pain control throughout shift Outcome: Progressing Goal: Participates in PT with improved pain control throughout the shift Outcome: Progressing Goal: Free from opioid side effects throughout the shift Outcome: Progressing Goal: Free from acute confusion related to pain meds throughout the shift Outcome: Progressing The patient's goals for the shift include The clinical goals for the shift include comfort and safety Over the shift, the patient did not make progress toward the following goals. Barriers to progression include none. Recommendations to address these barriers include n/a. Problem: Pain - Adult Goal: Verbalizes/displays adequate comfort level or baseline comfort level Outcome: Progressing The patient's goals for the shift include pain management The clinical goals for the shift include hemodynamically stable throughout shift Pt alert and oriented. Pt had complaints of pain. Pt medicated and tolerated well. No s/s of respiratory distress or shortness of breath. Bed low and locked. RN will continue to monitor. Michelle Mitchell is a 44 y.o. female with a PMH of HOCM, HFrEF (EF 40% as of 09/21/24) s/p ICD placement, DVT/PE 2017, PUD, GERD, tobacco use dependence, breast cancer s/p lumpectomy and chemotherapy, ovarian cancer s/p oophorectomy, endometrial cancer s/p ablation, biliary duct obstruction s/p stent placement, anxiety, depression, and migraines, who presented as a transfer from [facility] to [facility] with c/o defibrillator misfiring x3 in the setting of A-fib RVR. Cardiology consulted and replaced ICD lead on 01/09 without any complications with pre and post vancomycin given. Cardiology started patient on Tikosyn and recommended to resume DOAC on admission. ID consulted to weigh in on C. difficile and recommended to continue oral vancomycin that was started outpatient on 12/31. The patient's goals for the shift include pain management The clinical goals for the shift include pt will remain HDS throughout shift Problem: Pain - Adult Goal: Verbalizes/displays adequate [...] appropriate for maintaining nutritional needs Outcome: Progressing The clinical goals for the shift include pain management Sedation Plan ASA 3 Mallampati class: III. Risks, benefits, and alternatives discussed with spouse and patient. The patient's goals for the shift include The clinical goals for the shift include Patient to maintain HR WNL throughout end of shift Problem: Pain - Adult Goal: Verbalizes/displays adequate comfort level or baseline comfort level Outcome: Progressing Problem: Safety - Adult Goal: Free from fall injury Outcome: Progressing The patient's goals for the shift include have chest pain under control The clinical goals for the shift include Patient to maintain HR WNL throughout end of shift documented in this encounter [facility] Work Phone: 01-14-2025 Plan of care note Problem: Pain - Adult Goal: Verbalizes/displays adequate [...] appropriate for maintaining nutritional needs Outcome: Progressing Problem: Heart Failure Goal: Improved gas exchange [...] involvement in 24 hours Outcome: Progressing Problem: Fall/Injury Goal: Not fall by end of shift Outcome: Progressing Goal: Be free from injury by end of the shift Outcome: Progressing Goal: Verbalize understanding of personal risk factors for fall in the hospital Outcome: Progressing Goal: Verbalize understanding of risk factor reduction measures to prevent injury from fall in the home Outcome: Progressing Goal: Use assistive devices by end of the shift Outcome: Progressing Goal: Pace activities to prevent fatigue by end of the shift Outcome: Progressing Problem: Pain Goal: Takes deep breaths with improved pain control throughout the shift Outcome: Progressing Goal: Turns in bed with improved pain control throughout the shift Outcome: Progressing Goal: Walks with improved pain control throughout the shift Outcome: Progressing Goal: Performs ADL's with improved pain control throughout shift Outcome: Progressing Goal: Participates in PT with improved pain control throughout the shift Outcome: Progressing Goal: Free from opioid side effects throughout the shift Outcome: Progressing Goal: Free from acute confusion related to pain meds throughout the shift Outcome: Progressing The patient's goals for the shift include The clinical goals for the shift include maintain safety and pain management Over the shift, the patient did not make progress toward the following goals. Barriers to progression include PAIN. [facility] Work Phone: 01-14-2025 Plan of care note The patient's goals for the shift include rest The clinical goals for the shift include maintain safety and pain management Problem: Pain - Adult Goal: Verbalizes/displays adequate [...] appropriate for maintaining nutritional needs Outcome: Progressing Problem: Heart Failure Goal: Improved gas exchange [...] involvement in 24 hours Outcome: Progressing Problem: Fall/Injury Goal: Not fall by end of shift Outcome: Progressing Goal: Be free from injury by end of the shift Outcome: Progressing Goal: Verbalize understanding of personal risk factors for fall in the hospital Outcome: Progressing Goal: Verbalize understanding of risk factor reduction measures to prevent injury from fall in the home Outcome: Progressing Goal: Use assistive devices by end of the shift Outcome: Progressing Goal: Pace activities to prevent fatigue by end of the shift Outcome: Progressing Problem: Pain Goal: Takes deep breaths with improved pain control throughout the shift Outcome: Progressing Goal: Turns in bed with improved pain control throughout the shift Outcome: Progressing Goal: Walks with improved pain control throughout the shift Outcome: Progressing Goal: Performs ADL's with improved pain control throughout shift Outcome: Progressing Goal: Participates in PT with improved pain control throughout the shift Outcome: Progressing Goal: Free from opioid side effects throughout the shift Outcome: Progressing Goal: Free from acute confusion related to pain meds throughout the shift Outcome: Progressing [facility] 01-13-2025 Plan of care note Problem: Pain - Adult Goal: Verbalizes/displays adequate comfort level or baseline comfort level Outcome: Progressing pain controlled with iv pain meds Problem: Safety - Adult Goal: Free from fall injury Outcome: Progressing, bed locked and low call light in reach Problem: Nutrition Goal: Nutrient intake appropriate for maintaining nutritional needs Outcome: Progressing Problem: Heart Failure Goal: Improved gas exchange [...] involvement in 24 hours Outcome: Progressing Problem: Fall/Injury Goal: Not fall by end of shift Outcome: Progressing Goal: Be free from injury by end of the shift Outcome: Progressing Goal: Verbalize understanding of personal risk factors for fall in the hospital Outcome: Progressing Goal: Verbalize understanding of risk factor reduction measures to prevent injury from fall in the home Outcome: Progressing Goal: Use assistive devices by end of the shift Outcome: Progressing Goal: Pace activities to prevent fatigue by end of the shift Outcome: Progressing Problem: Pain Goal: Takes deep breaths with improved pain control throughout the shift Outcome: Progressing Goal: Turns in bed with improved pain control throughout the shift Outcome: Progressing Goal: Walks with improved pain control throughout the shift Outcome: Progressing Goal: Performs ADL's with improved pain control throughout shift Outcome: Progressing Goal: Participates in PT with improved pain control throughout the shift Outcome: Progressing Goal: Free from opioid side effects throughout the shift Outcome: Progressing Goal: Free from acute confusion related to pain meds throughout the shift Outcome: Progressing Problem: Discharge Planning Goal: Discharge to home or other facility with appropriate resources Outcome: Progressing The patient's goals for the shift include ensure everything is in place for discharge, pain medication and cardiac meds. Pt to be discharged 01/14 The clinical goals for the shift include comfort and safety Over the shift, the patient did not make progress toward the following goals. Barriers to progression include pain and medication availability. Recommendations to address these barriers include assess pain and administer as prescribed, pharmacy to provide home meds via bedside 01/14 [facility] Work Phone: 01-12-2025 Hospital course Narrative Discharge Diagnosis Defibrillator discharge Issues Requiring Follow-Up PCP and cardiology follow up Discharge Meds Medication List START taking these medications apixaban 5 mg tablet; Commonly known as: Eliquis; Take 1 tablet (5 mg) by mouth every 12 hours. dofetilide 125 mcg capsule; Commonly known as: Tikosyn; Take 3 capsules (375 mcg) by mouth every 12 hours. oxyCODONE 5 mg immediate release tablet; Commonly known as: Roxicodone; Take 1 tablet (5 mg) by mouth every 8 hours if needed for severe pain (7 - 10). CHANGE how you take these medications spironolactone 25 mg tablet; Commonly known as: Aldactone; Take 0.5 tablets (12.5 mg) by mouth once daily.; Start taking on: January 13, 2025; What changed: how much to take CONTINUE taking these medications ALPRAZolam 0.5 mg tablet; Commonly known as: Xanax Ambien 10 mg tablet; Generic drug: zolpidem empagliflozin 10 mg tablet; Commonly known as: Jardiance; Take 1 tablet (10 mg) by mouth once daily. furosemide 20 mg tablet; Commonly known as: Lasix metoprolol succinate XL 25 mg 24 hr tablet; Commonly known as: Toprol-XL; Take 1 tablet (25 mg) by mouth once daily. Do not crush or chew. ondansetron ODT 4 mg disintegrating tablet; Commonly known as: Zofran-ODT pantoprazole 40 mg EC tablet; Commonly known as: ProtoNix psyllium 3.4 gram packet; Commonly known as: Metamucil sucralfate 1 gram tablet; Commonly known as: Carafate vancomycin 125 mg capsule; Commonly known as: Vancocin; Take 1 capsule (125 mg) by mouth 4 times a day for 2 days. varenicline tartrate 0.5 mg (11)- 1 mg (42) tablet; Commonly known as: Chantix KENNETH; Use as directed on package instructions, try to quit smoking after 1 week. Ventolin HFA 90 mcg/actuation inhaler; Generic drug: albuterol Test Results Pending At Discharge Pending Labs No current pending labs. Hospital Course Michelle Mitchell is a 44 y.o. female known to Dr. Amezcua with a past medical history significant for family history of HCM, HOCM with EF 40% (s/p ICD placement in 2006 with lead revision in 2008, and then explant of the entire device with reimplantation of Medtronic single lead PPM in 2016), with recent normal cardiac catheterization for reduced LV function (EF 55% -> 40%), DVT/PE 2016, breast CA in 1998 (s/p lumpectomy and chemotherapy), ovarian CA in 2006 (s/p oophorectomy), endometrial CA (s/p ablation), gallstone pancreatitis despite a prior cholecystectomy found to have biliary duct obstruction s/p stent placement, and transaminitis. Patient was admitted to [facility] in July of 2024 for evaluation of possible IE and ADHF. Blood cultures drawn 07/24. She was treated with IV Lasix. ID consulted. MICKI showed a thin, filamentous echodensity on the RV lead in the right atrium, measuring ~1.4 cm which appears new from MICKI on 2016. Dr. Fonseca and EP agreed likely fibrous material leftover from the previous device extraction in 2016. She was started Toprol XL [address] Fonseca. She was discharged 07/27/2024. Patient admitted to [facility] for chest pain and underwent a cardiac cath on 12/27/2024. Patient presented to [facility] 01/08/2025 and was transferred to [facility] on 01/09/25 for ICD firing in setting of A. Fib RVR. Cardiology has been consulted for concerns of misfiring ICD. Patient's ICD interrogated by Dr. Rojas at the bedside. She has had episodes of atrial fibrillation with RVR heart rates in the 200's with inappropriate shocks for ICD. Atrial Fibrillation with RVR - Patient with episodes of A. Fib RVR heart rates in the 200's. She has had inappropriate shocks by ICD for these episodes. She also has sinus bradycardia on telemetry which made it more challenging to rate control. Given her underlying transaminitis, Amiodarone was not recommended. - She underwent upgrade to dual chamber ICD 01/09/2025. She is a paced on EKG. - QTC Stable. Continue 375 mcg BID with repeat EKG 2 hours after doses. - Stop Tikosyn if QT >500 or QTC >550 - Consider dose reduction if QT prolongation >15% - NATACHA?DS?-VASc Score of 3. Recommend to resume Eliquis tonight for stroke prophylaxis. - Continue Toprol XL 25 mg daily for now. - Recommend to keep K>4, Mg>2 - TSH: 4.82 - Patient's insertion site is painful. Ice does help improve pain. No hematoma, redness, or significant swelling at side. Continue with Ice and ongoing pain meds. She is unable to receive NSAIDs or Toradol given her other medical conditions. - Patient's 5th dose of Tikosyn last night. -Qtc 460 this morning HOCM - Patient known to Dr. Amezcua. She is s/p ICD placement in 2006 with lead revision in 2008, and then explant of the entire device with reimplantation of Medtronic single lead PPM in 2016. - EF previously has been stable 50-55%. Newly found to have reduced LV function in September of 2024. EF noted to be 40%. She developed chest pain recently and underwent cardiac cath on 12/27/2024 which revealed normal coronary arteries. - Repeat echo revealed stable LV function. - Patient appears euvolemic and compensated upon exam. - Recommend to continue Toprol XL 25 mg and Jardiance 10 mg daily - She has been hypertensive today. Resume 12.5 mg Aldactone daily - Low sodium diet C Diff - Continue PO Vancomycin as instructed per ID, 2 more days Transaminitis - Managed per primary team. Follows with outpatient GI - ALT: 117, AST: 79 Patient is doing better today. She will be discharged today in stable condition. Advised to follow with her PCP and cardiology as outpatient. Also counseled her on medication compliance. Discharge time spent more than 30 minutes. Pertinent Physical Exam At Time of Discharge Physical Exam Constitutional: Appearance: She is not toxic-appearing. HENT: Head: Normocephalic and atraumatic. Cardiovascular: Rate and Rhythm: Normal rate and regular rhythm. Comments: tenderness in the right chest where ICD was placed Pulmonary: Effort: Pulmonary effort is normal. No respiratory distress. Abdominal: Tenderness: There is no abdominal tenderness. There is no guarding. Neurological: General: No focal deficit present. Mental Status: She is alert. Psychiatric: Mood and Affect: Mood normal. Outpatient Follow-Up Future Appointments Date Time Provider Department Center 01/23/2025 2:00 PM Radu Kay MD [id number] [place] [facility] J[facility] MD documented in this encounter [facility] Work Phone: 01-12-2025 Plan of care note Problem: Pain - Adult Goal: Verbalizes/displays adequate [...] appropriate for maintaining nutritional needs Outcome: Progressing Problem: Heart Failure Goal: Improved gas exchange [...] involvement in 24 hours Outcome: Progressing Problem: Fall/Injury Goal: Not fall by end of shift Outcome: Progressing Goal: Be free from injury by end of the shift Outcome: Progressing Goal: Verbalize understanding of personal risk factors for fall in the hospital Outcome: Progressing Goal: Verbalize understanding of risk factor reduction measures to prevent injury from fall in the home Outcome: Progressing Goal: Use assistive devices by end of the shift Outcome: Progressing Goal: Pace activities to prevent fatigue by end of the shift Outcome: Progressing Problem: Pain Goal: Takes deep breaths with improved pain control throughout the shift Outcome: Progressing Goal: Turns in bed with improved pain control throughout the shift Outcome: Progressing Goal: Walks with improved pain control throughout the shift Outcome: Progressing Goal: Performs ADL's with improved pain control throughout shift Outcome: Progressing Goal: Participates in PT with improved pain control throughout the shift Outcome: Progressing Goal: Free from opioid side effects throughout the shift Outcome: Progressing Goal: Free from acute confusion related to pain meds throughout the shift Outcome: Progressing The patient's goals for the shift include The clinical goals for the shift include comfort and safety Over the shift, the patient did not make progress toward the following goals. Barriers to progression include none. Recommendations to address these barriers include n/a. [facility] 01-11-2025 Plan of care note Problem: Pain - Adult Goal: Verbalizes/displays adequate comfort level or baseline comfort level Outcome: Progressing The patient's goals for the shift include pain management The clinical goals for the shift include hemodynamically stable throughout shift Pt alert and oriented. Pt had complaints of pain. Pt medicated and tolerated well. No s/s of respiratory distress or shortness of breath. Bed low and locked. RN will continue to monitor. T [facility] Work Phone: 01-11-2025 Nurse Note EKG done. Pt QTC 458 [facility] 01-11-2025 Nurse Note EKG done. Pt QTC 458 HF Clinical Nurse Navigator Documentation Congestive Heart Failure disease education was attempted by the Clinical Nurse Navigator. Patient is not appropriate for education at this time. Report called to 9th floor RN, final site assessment and vitals stable, pt meets transfer criteria, pt transferred back to 9th floor by dental lab technician RNs documented in this encounter [facility] Work Phone: 01-11-2025 Nurse Note HF Clinical Nurse Navigator Documentation Congestive Heart Failure disease education was attempted by the Clinical Nurse Navigator. Patient is not appropriate for education at this time. [facility] 01-10-2025 Hospital Note Formatting of t his note might be different from the original. Michelle Mitchell is a 44 y.o. female with a PMH of HOCM, HFrEF (EF 40% as of 09/21/24) s/p ICD placement, DVT/PE 2017, PUD, GERD, tobacco use dependence, breast cancer s/p lumpectomy and chemotherapy, ovarian cancer s/p oophorectomy, endometrial cancer s/p ablation, biliary duct obstruction s/p stent placement, anxiety, depression, and migraines, who presented as a transfer from [facility] to [facility] with c/o defibrillator misfiring x3 in the setting of A-fib RVR. Cardiology consulted and replaced ICD lead on 01/09 without any complications with pre and post vancomycin given. Cardiology started patient on Tikosyn and recommended to resume DOAC on admission. ID consulted to weigh in on C. difficile and recommended to continue oral vancomycin that was started outpatient on 12/31. [facility] Work Phone: 01-10-2025 Plan of care note The patient's goals for the shift include pain management The clinical goals for the shift include pt will remain HDS throughout shift Problem: Pain - Adult Goal: Verbalizes/displays adequate [...] appropriate for maintaining nutritional needs Outcome: Progressing [facility] 01-09-2025 Plan of care note The clinical goals for the shift include pain management [facility] 01-09-2025 Nurse Note Report called to 9th floor RN, final site assessment and vitals stable, pt meets transfer criteria, pt transferred back to 9th floor by dental lab technician RNs [facility] 01-09-2025 Nurse procedure note Sedation Plan ASA 3 Mallampati class: III. Risks, benefits, and alternatives discussed with spouse and patient. T [facility] Work Phone: 01-09-2025 Attending History and physical note H&P reviewed. The patient was examined and there are no changes to the H&P. Source Note - Theodore Rojas MD - 01/09/2025 3:59 PM EDT Images from the original note were not included. Cardiac Electrophysiology Consult Chief complaint: ICD shocks Referred by: Dr. Driscoll History of Present Illness Michelle Mitchell is a 44 year old female with hypertrophic cardiomyopathy who presents with episodes of chest pain and multiple ICD shocks. She has a history of hypertrophic cardiomyopathy with an LV function of EF 40%. She underwent a single chamber ICD implantation in 2006, which was complicated by lead revision in 2008 and extraction due to a fractured lead with re-implantation on the right side in 2017. Recently, she experienced episodes of chest pain and multiple ICD shocks, accompanied by symptoms of shortness of breath and a crushing sensation. She has no prior history of ICD shocks or atrial fibrillation. In 2017, she had a history of DVT/PE. She also has a history of breast cancer, for which she underwent a left-sided lumpectomy and chemotherapy, ovarian cancer in 2006 status post oophorectomy, and endometrial cancer. She experienced gallstone pancreatitis and had a prior cholecystectomy. She is currently on a low dose beta krishan but increasing the dose is not feasible due to significant bradycardia and dependence on ventricular pacing. She has baseline sinus bradycardia. Her recent echocardiogram in July 2024 showed an LVEF of 50%. A transesophageal echocardiogram in July 2024 showed low normal LV function with a thin filamentous echo density in the RV lead in the right atrium measuring 1.4 cm. She is currently receiving vancomycin therapy for a C. diff infection. She has not recently had any symptoms or diarrhea. Medications: Current Outpatient Medications Medication Instructions albuterol (Ventolin HFA) 90 mcg/actuation inhaler 2 puffs, Every 6 hours PRN ALPRAZolam (XANAX) 0.5 mg, 2 times daily empagliflozin (JARDIANCE) 10 mg, oral, Daily furosemide (LASIX) 20 mg, Daily PRN metoprolol succinate XL (TOPROL-XL) 25 mg, oral, Daily, Do not crush or chew. ondansetron ODT (ZOFRAN-ODT) 4 mg, Every 4 hours PRN pantoprazole (PROTONIX) 40 mg, 2 times daily psyllium (Metamucil) 3.4 gram packet 1 packet, Daily PRN spironolactone (ALDACTONE) 25 mg, oral, Daily sucralfate (CARAFATE) 1 g, 2 times daily vancomycin (VANCOCIN) 125 mg, 4 times daily varenicline tartrate (Chantix KENNETH) 0.5 mg (11)- 1 mg (42) tablet Use as directed on package instructions, try to quit smoking after 1 week. zolpidem (AMBIEN) 10 mg, Nightly PRN Scheduled Medications[1] Last Recorded Vitals: 12/27/2024 5:10 PM 12/27/2024 6:10 PM 12/27/2024 7:00 PM 12/27/2024 7:10 PM 01/09/2025 2:00 AM 01/09/2025 6:30 AM 01/09/2025 8:05 AM Vitals Systolic 144 144 155 133 109 95 Diastolic 94 92 96 79 70 50 BP Location Right arm Right arm Heart Rate 86 82 87 87 115 60 55 Temp 36.1 C (97 F) 36.1 C (97 F) 36.2 C (97.2 F) 36.8 C (98.2 F) 36.1 C (97 F) 36.1 C (97 F) Resp 18 18 18 21 20 Height 1.626 m (5' 4") Weight (lb) 130.73 126.8 BMI 22.44 kg/m2 21.77 kg/m2 BSA (m2) 1.64 m2 1.61 m2 Physical Exam Constitutional: Appearance: Normal appearance. HENT: Head: Normocephalic. Eyes: Pupils: Pupils are equal, round, and reactive to light. Cardiovascular: Rate and Rhythm: Normal rate and regular rhythm. Pulses: Normal pulses. Comments: right sided implant healed well, no ecchymosis, hematoma or drainage noted Pulmonary: Effort: Pulmonary effort is normal. No respiratory distress. Breath sounds: Normal breath sounds. Skin: General: Skin is warm and dry. Capillary Refill: Capillary refill takes less than 2 seconds. Neurological: Mental Status: She is alert. My Interpretation of Reviewed Study(s): Results DIAGNOSTIC Echocardiogram: LVEF 50% (07/2024) Transesophageal echocardiogram: Low normal LV function, single lead ICD, thin filamentous echo density in RV lead in right atrium measuring 1.4 cm, fibrinous material (07/2024) Cardiac catheterization: Right coronary dominant system normal coronaries mildly elevated LVEDP 34 mmHg (12/2024) Echocardiogram: Mild reduced LV function EF of 40% global hypokinesis mildly dilated left atrium, right atrium upper limit of normal, mild to moderate TR (07/2024) Assessment & Plan Atrial fibrillation with rapid ventricular response and inappropriate ICD shocks Newly diagnosed atrial fibrillation with RVR causing inappropriate ICD shocks. Baseline sinus bradycardia limits beta krishan dosage due to significant bradycardia and ventricular pacing dependence. Amiodarone is unsuitable due to liver dysfunction; Tikosyn is considered. 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 Ventricular pacing could exacerbate cardiomyopathy. Recent echocardiogram showed LVEF of 50%. Transesophageal echocardiogram indicated low normal LV function and fibrinous echo density in the RV lead in the right atrium. Adjustment and management of automatic implantable cardiac defibrillator (ICD) Current single chamber ICD requires upgrading to dual chamber ICD for atrial pacing due to sinus bradycardia and ventricular pacing dependence. Previous complications included lead revision and extraction due to fractured lead. - Upgrade single chamber ICD to dual chamber ICD Clostridioides difficile infection, on vancomycin therapy On vancomycin therapy for Clostridioides difficile infection. No recent symptoms or diarrhea. ID consulted. IV perspective indicates no current infection, but completion of PO vancomycin course is recommended. - Administer IV vancomycin perioperatively and for at least three more days postoperatively - Complete PO vancomycin course Code status: Full Code I spent 45 minutes in the professional and overall care of this patient. Theodore Rojas MD [facility] Cardiac Electrophysiology Thank you very much for allowing me to participate in the care of this pleasant patient. Please do not hesitate to contact me with any further questions or concerns regarding their care. This medical note was created with the assistance of artificial intelligence (AI) for documentation purposes. The content has been reviewed and confirmed by the healthcare provider for accuracy and completeness. Patient consented to the use of audio recording and use of AI during their visit. [1] Scheduled medications Medication Dose Route Frequency ALPRAZolam 0.5 mg oral BID diphenhydrAMINE 50 mg intravenous Once dofetilide 250 mcg oral Once [START ON 01/10/2025] dofetilide 250 mcg oral q12h PIA lactated Ringer's 1,000 mL intravenous Once methylPREDNISolone sodium succinate (PF) 125 mg intravenous Once metoprolol succinate XL 25 mg oral Daily polyethylene glycol 17 g oral Daily vancomycin 15 mg/kg intravenous Once vancomycin 125 mg oral 4x daily [facility] Work Phone: 01-09-2025 History and physical note H&P reviewed. The patient was examined and there are no changes to the H&P. Source Note - Theodore Rojas MD - 01/09/2025 3:59 PM EDT Images from the original note were not included. Cardiac Electrophysiology Consult Chief complaint: ICD shocks Referred by: Dr. Driscoll History of Present Illness Michelle Mitchell is a 44 year old female with hypertrophic cardiomyopathy who presents with episodes of chest pain and multiple ICD shocks. She has a history of hypertrophic cardiomyopathy with an LV function of EF 40%. She underwent a single chamber ICD implantation in 2006, which was complicated by lead revision in 2008 and extraction due to a fractured lead with re-implantation on the right side in 2017. Recently, she experienced episodes of chest pain and multiple ICD shocks, accompanied by symptoms of shortness of breath and a crushing sensation. She has no prior history of ICD shocks or atrial fibrillation. In 2017, she had a history of DVT/PE. She also has a history of breast cancer, for which she underwent a left-sided lumpectomy and chemotherapy, ovarian cancer in 2006 status post oophorectomy, and endometrial cancer. She experienced gallstone pancreatitis and had a prior cholecystectomy. She is currently on a low dose beta krishan but increasing the dose is not feasible due to significant bradycardia and dependence on ventricular pacing. She has baseline sinus bradycardia. Her recent echocardiogram in July 2024 showed an LVEF of 50%. A transesophageal echocardiogram in July 2024 showed low normal LV function with a thin filamentous echo density in the RV lead in the right atrium measuring 1.4 cm. She is currently receiving vancomycin therapy for a C. diff infection. She has not recently had any symptoms or diarrhea. Medications: Current Outpatient Medications Medication Instructions albuterol (Ventolin HFA) 90 mcg/actuation inhaler 2 puffs, Every 6 hours PRN ALPRAZolam (XANAX) 0.5 mg, 2 times daily empagliflozin (JARDIANCE) 10 mg, oral, Daily furosemide (LASIX) 20 mg, Daily PRN metoprolol succinate XL (TOPROL-XL) 25 mg, oral, Daily, Do not crush or chew. ondansetron ODT (ZOFRAN-ODT) 4 mg, Every 4 hours PRN pantoprazole (PROTONIX) 40 mg, 2 times daily psyllium (Metamucil) 3.4 gram packet 1 packet, Daily PRN spironolactone (ALDACTONE) 25 mg, oral, Daily sucralfate (CARAFATE) 1 g, 2 times daily vancomycin (VANCOCIN) 125 mg, 4 times daily varenicline tartrate (Chantix KENNETH) 0.5 mg (11)- 1 mg (42) tablet Use as directed on package instructions, try to quit smoking after 1 week. zolpidem (AMBIEN) 10 mg, Nightly PRN Scheduled Medications[1] Last Recorded Vitals: 12/27/2024 5:10 PM 12/27/2024 6:10 PM 12/27/2024 7:00 PM 12/27/2024 7:10 PM 01/09/2025 2:00 AM 01/09/2025 6:30 AM 01/09/2025 8:05 AM Vitals Systolic 144 144 155 133 109 95 Diastolic 94 92 96 79 70 50 BP Location Right arm Right arm Heart Rate 86 82 87 87 115 60 55 Temp 36.1 C (97 F) 36.1 C (97 F) 36.2 C (97.2 F) 36.8 C (98.2 F) 36.1 C (97 F) 36.1 C (97 F) Resp 18 18 18 21 20 Height 1.626 m (5' 4") Weight (lb) 130.73 126.8 BMI 22.44 kg/m2 21.77 kg/m2 BSA (m2) 1.64 m2 1.61 m2 Physical Exam Constitutional: Appearance: Normal appearance. HENT: Head: Normocephalic. Eyes: Pupils: Pupils are equal, round, and reactive to light. Cardiovascular: Rate and Rhythm: Normal rate and regular rhythm. Pulses: Normal pulses. Comments: right sided implant healed well, no ecchymosis, hematoma or drainage noted Pulmonary: Effort: Pulmonary effort is normal. No respiratory distress. Breath sounds: Normal breath sounds. Skin: General: Skin is warm and dry. Capillary Refill: Capillary refill takes less than 2 seconds. Neurological: Mental Status: She is alert. My Interpretation of Reviewed Study(s): Results DIAGNOSTIC Echocardiogram: LVEF 50% (07/2024) Transesophageal echocardiogram: Low normal LV function, single lead ICD, thin filamentous echo density in RV lead in right atrium measuring 1.4 cm, fibrinous material (07/2024) Cardiac catheterization: Right coronary dominant system normal coronaries mildly elevated LVEDP 34 mmHg (12/2024) Echocardiogram: Mild reduced LV function EF of 40% global hypokinesis mildly dilated left atrium, right atrium upper limit of normal, mild to moderate TR (07/2024) Assessment & Plan Atrial fibrillation with rapid ventricular response and inappropriate ICD shocks Newly diagnosed atrial fibrillation with RVR causing inappropriate ICD shocks. Baseline sinus bradycardia limits beta krishan dosage due to significant bradycardia and ventricular pacing dependence. Amiodarone is unsuitable due to liver dysfunction; Tikosyn is considered. 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 Ventricular pacing could exacerbate cardiomyopathy. Recent echocardiogram showed LVEF of 50%. Transesophageal echocardiogram indicated low normal LV function and fibrinous echo density in the RV lead in the right atrium. Adjustment and management of automatic implantable cardiac defibrillator (ICD) Current single chamber ICD requires upgrading to dual chamber ICD for atrial pacing due to sinus bradycardia and ventricular pacing dependence. Previous complications included lead revision and extraction due to fractured lead. - Upgrade single chamber ICD to dual chamber ICD Clostridioides difficile infection, on vancomycin therapy On vancomycin therapy for Clostridioides difficile infection. No recent symptoms or diarrhea. ID consulted. IV perspective indicates no current infection, but completion of PO vancomycin course is recommended. - Administer IV vancomycin perioperatively and for at least three more days postoperatively - Complete PO vancomycin course Code status: Full Code I spent 45 minutes in the professional and overall care of this patient. Theodore Rojas MD [facility] Cardiac Electrophysiology Thank you very much for allowing me to participate in the care of this pleasant patient. Please do not hesitate to contact me with any further questions or concerns regarding their care. This medical note was created with the assistance of artificial intelligence (AI) for documentation purposes. The content has been reviewed and confirmed by the healthcare provider for accuracy and completeness. Patient consented to the use of audio recording and use of AI during their visit. [1] Scheduled medications Medication Dose Route Frequency ALPRAZolam 0.5 mg oral BID diphenhydrAMINE 50 mg intravenous Once dofetilide 250 mcg oral Once [START ON 01/10/2025] dofetilide 250 mcg oral q12h PIA lactated Ringer's 1,000 mL intravenous Once methylPREDNISolone sodium succinate (PF) 125 mg intravenous Once metoprolol succinate XL 25 mg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 Ventricular pacing could exacerbate cardiomyopathy. Recent echocardiogram showed LVEF of 50%. Transesophageal echocardiogram indicated low normal LV function and fibrinous echo density in the RV lead in the right atrium. Adjustment and management of automatic implantable cardiac defibrillator (ICD) Current single chamber ICD requires upgrading to dual chamber ICD for atrial pacing due to sinus bradycardia and ventricular pacing dependence. Previous complications included lead revision and extraction due to fractured lead. - Upgrade single chamber ICD to dual chamber ICD Clostridioides difficile infection, on vancomycin therapy On vancomycin therapy for Clostridioides difficile infection. No recent symptoms or diarrhea. ID consulted. IV perspective indicates no current infection, but completion of PO vancomycin course is recommended. - Administer IV vancomycin perioperatively and for at least three more days postoperatively - Complete PO vancomycin course Code status: Full Code I spent 45 minutes in the professional and overall care of this patient. Theodore Rojas MD [facility] Cardiac Electrophysiology Thank you very much for allowing me to participate in the care of this pleasant patient. Please do not hesitate to contact me with any further questions or concerns regarding their care. This medical note was created with the assistance of artificial intelligence (AI) for documentation purposes. The content has been reviewed and confirmed by the healthcare provider for accuracy and completeness. Patient consented to the use of audio recording and use of AI during their visit. [1] Scheduled medications Medication Dose Route Frequency ALPRAZolam 0.5 mg oral BID diphenhydrAMINE 50 mg intravenous Once dofetilide 250 mcg oral Once [START ON 01/10/2025] dofetilide 250 mcg oral q12h PIA lactated Ringer's 1,000 mL intravenous Once methylPREDNISolone sodium succinate (PF) 125 mg intravenous Once metoprolol succinate XL 25 mg oral Daily polyethylene glycol 17 g oral Daily vancomycin 15 mg/kg intravenous Once vancomycin 125 mg oral 4x daily Consults Referring physician Dr. Driscoll History of present illness 44-year-old female who has a complicated past medical history came in with misfiring of her ICD. She apparently tested positive for C. difficile on 12-30-2024 at [facility]. Interestingly enough the toxin A&B were negative. She was symptomatic and was having a lot more diarrhea. Patient is going for the defibrillator explant and a new defibrillator placed Past medical history significant for hokum, HFrEF, status post ICD placement, DVT/PE in 2017, PUD, GERD, breast cancer status postlumpectomy and chemotherapy, ovarian cancer status post oophorectomy, endometrial cancer status post ablation, biliary duct obstruction status post stent placement, anxiety, depression, migraines Past surgical history as above Social history currently no drinking smoking drug use though she did use cigarettes in the past Allergies Levaquin she does not recall what happened it was during surgery she was given this but was told never to have it again, azithromycin she gets itching rash A 10 point review system was obtained with the patient denying any complaints outside of those listed in HPI above Physical exam HEENT PERRLA Chest entry bilaterally CVS S1-S2 regular Abdomen soft nontender positive bowel sound Extremities no pitting edema Labs and radiology reviewed Impression: 44-year-old female who is going for an explant of a defibrillator due to missed firing. She can get a preop antibiotic with IV Vanco and she should continue with oral Vanco 125 mg p.o. 4 times daily for 3 days after her surgery to prevent C. difficile from reactivating. The patient's PCR was positive but toxin A&B were negative but patient was symptomatic with worsening diarrhea. Suggestion: Vancomycin IV prior to explant per OR protocol 2. Continue oral Vanco 125 p.o. 4 times daily for 3 more days Thank for this consult follow with you as needed I have reviewed and interpreted all lab tests and imaging studies and documentations from other healthcare providers We are monitoring antibiotics for side effects, toxicity and vancomycin levels Associated Order(s): Inpatient consult to Cardiology Cardiology Consult Note Inpatient consult to Cardiology Consult performed by: Marilee Sheikh APRN-[facility] Consult ordered by: DO Michelle Floyddelmi is a 44 y.o. female known to Dr. Amezcua with a past medical history significant for family history of HCM, HOCM with EF 40% (s/p ICD placement in 2006 with lead revision in 2008, and then explant of the entire device with reimplantation of [employer] single lead PPM in 2016), with recent normal cardiac catheterization for reduced LV function (EF 55% -> 40%), DVT/PE 2017, breast CA in 1998 (s/p lumpectomy and chemotherapy), ovarian CA in 2006 (s/p oophorectomy), endometrial CA (s/p ablation), gallstone pancreatitis despite a prior cholecystectomy found to have biliary duct obstruction s/p stent placement, and transaminitis. Patient was admitted to [facility] in July of 2024 for evaluation of possible IE and ADHF. Blood cultures drawn 07/24. She was treated with IV Lasix. ID consulted. MICKI showed a thin, filamentous echodensity on the RV lead in the right atrium, measuring ~1.4 cm which appears new from MICKI on 2017. Dr. Fonseca and EP agreed likely fibrous material leftover from the previous device extraction in 2016. She was started Toprol XL [address] Fonseca. She was discharged 07/27/2024. Patient admitted to [facility] for chest pain and underwent a cardiac cath on 12/27/2024. Patient presented to [facility] 01/08/2025 and was transferred to [facility] on 01/09/25 for ICD firing in setting of A. Fib RVR. Cardiology has been consulted for concerns of misfiring ICD. Patient's ICD interrogated by Dr. Rojas at the bedside. She has had episodes of atrial fibrillation with RVR heart rates in the 200's with inappropriate shocks for ICD. TSH: 4.82 BNP: 812 ALT: 110 AST: 232 WBC 14 Subjective Today, patient seen and assessed resting in bed. She reports right chest pain after ICD shock. She reports feeling nervous and generalized malaise after her recent ICD shocks. ROS: Review of Systems Constitutional: Positive for malaise/fatigue. Cardiovascular: Positive for chest pain (right sided). Negative for dyspnea on exertion, leg swelling, orthopnea and paroxysmal nocturnal dyspnea. Respiratory: Negative for shortness of breath. Neurological: Negative for dizziness, light-headedness and weakness. Past Medical History: Medical History[1] Problem List Items Addressed This Visit Cardiac and Vasculature * (Principal) Defibrillator discharge - Primary Relevant Orders Cardiac device check - Inpatient Atrial fib/flutter, transient (Multi) Relevant Medications metoprolol succinate XL (Toprol-XL) 24 hr tablet 25 mg Other Relevant Orders Transthoracic Echo (TTE) Limited Family History: No relevant family history has been documented for this patient. Medications: Prior to Admission medications Medication Sig Start Date End Date Taking? Authorizing Provider albuterol (Ventolin HFA) 90 mcg/actuation inhaler Inhale 2 puffs every 6 hours if needed for wheezing. Yes Historical Provider, ALPRAZolam (Xanax) 0.5 mg tablet Take 1 tablet (0.5 mg) by mouth 2 times a day. Yes Historical Provider, empagliflozin (Jardiance) 10 mg tablet Take 1 tablet (10 mg) by mouth once daily. 11/21/24 11/21/25 Yes Radu Kay MD furosemide (Lasix) 20 mg tablet Take 1 tablet (20 mg) by mouth once daily as needed (edema). Yes Historical Provider, metoprolol succinate XL (Toprol-XL) 25 mg 24 hr tablet Take 1 tablet (25 mg) by mouth once daily. Do not crush or chew. 11/21/24 Yes Radu Kay MD ondansetron ODT (Zofran-ODT) 4 mg disintegrating tablet Dissolve 1 tablet (4 mg) in the mouth every 4 hours if needed for nausea or vomiting. Yes Historical Provider, pantoprazole (ProtoNix) 40 mg EC tablet Take 1 tablet (40 mg) by mouth 2 times a day. Do not crush, chew, or split. Yes Historical Provider, psyllium (Metamucil) 3.4 gram packet Take 1 packet by mouth once daily as needed. Yes Historical Provider, spironolactone (Aldactone) 25 mg tablet Take 1 tablet (25 mg) by mouth once daily. 08/15/24 08/15/25 Yes Radu Kay MD sucralfate (Carafate) 1 gram tablet Take 1 tablet (1 g) by mouth 2 times a day. Yes Historical Provider, vancomycin (Vancocin) 125 mg capsule Take 1 capsule (125 mg) by mouth 4 times a day. Yes Historical Provider, varenicline tartrate (Chantix KENNETH) 0.5 mg (11)- 1 mg (42) tablet Use as directed on package instructions, try to quit smoking after 1 week. 11/21/24 02/19/25 Yes Radu Kay MD zolpidem (Ambien) 10 mg tablet Take 1 tablet (10 mg) by mouth as needed at bedtime for sleep. Yes Historical Provider, Current Medications[2] Allergies: Allergies[3] Social History: Social History Tobacco Use Smoking status: Every Day Current packs/day: 0.50 Types: Cigarettes Smokeless tobacco: Never Substance Use Topics Alcohol use: Never Physical Exam: Physical Exam Constitutional: Appearance: Normal appearance. HENT: Head: Normocephalic and atraumatic. Cardiovascular: Rate and Rhythm: Regular rhythm. Bradycardia present. Pulses: Normal pulses. Heart sounds: Normal heart sounds. No murmur heard. Pulmonary: Effort: Pulmonary effort is normal. Breath sounds: Normal breath sounds. Musculoskeletal: Cervical back: Normal range of motion. Right lower leg: No edema. Left lower leg: No edema. Skin: General: Skin is warm and dry. Neurological: General: No focal deficit present. Mental Status: She is alert. Psychiatric: Mood and Affect: Mood normal. Last Recorded Vitals Visit Vitals BP 95/50 (BP Location: Right arm, Patient Position: Sitting) Pulse 55 Temp 36.1 C (97 F) (Temporal) Resp 20 No intake or output data in the 24 hours ending 01/09/25 1243 BP 95/50 (BP Location: Right arm, Patient Position: Sitting) Pulse 55 Temp 36.1 C (97 F) (Temporal) Resp 20 Wt 57.5 kg (126 lb 12.8 oz) SpO2 96% Intake/Output last 3 Shifts: No intake or output data in the 24 hours ending 01/09/25 1243 Admission Weight Weight: 57.5 kg (126 lb 12.8 oz) (01/09/25 0630) Daily Weight 01/09/25 : 57.5 kg (126 lb 12.8 oz) Recent Image Results Cardiac Catheterization Procedure Narrative: [facility] [employer] Layer [employer] [address] [place] [address] [id number], Cardiovascular Catheterization Report Patient Name: MICHELLE MITCHELL Performing Physician: Kristel Osorio MD Study Date: 12/27/2024 Verifying Physician: Kristel Osorio MD MRN/PID: [id number] Forms Builder/Co-Scrub: Ordering Provider: Kristel OSORIO Date of /Age: 7 1980 / 44 years Forms Builder: Gender: F Fellow: Surgeon: Study: Left Heart Cath Indications: MICHELLE MITCHELL is a 44 year old female who presents with hypertension, hypertrophic cardiomyopathy and a chest pain assessment of typical angina. Cardiomyopathy. Informed Consent: Benefits, risks, and alternatives discussed with patient or authorized goodwill representative and consent was obtained. Procedure Description: After infiltration with 2% Lidocaine, the right femoral artery was cannulated with a modified Seldinger technique. Subsequently a 5 Kenyan sheath was placed in the right femoral artery. Selective coronary catheterization was performed using a 5 Fr catheter(s) exchanged over a guide wire to cannulate the coronary arteries. A 5 Fr Weott catheter was used for left and right coronary artery injections. Multiple injections of contrast were made into the left and right coronary arteries with angiograms recorded in multiple projections. After completion of the procedure, the arterial sheath was pulled and pressure was applied to the site. Coronary Angiography: The coronary circulation is right dominant. Left Main Coronary Artery: The left main coronary artery is a normal caliber vessel. The left main arises normally from the left coronary sinus of Valsalva and bifurcates into the LAD and circumflex coronary arteries. The left main coronary artery showed a normal vessel. Left Anterior Descending Coronary Artery Distribution: The left anterior descending coronary artery is a normal caliber vessel. The LAD arises normally from the left main coronary artery. The LAD demonstrated a normal vessel. The 1st diagonal branch is a normal caliber vessel. The 1st diagonal branch showed a normal vessel. The 2nd diagonal branch is a normal caliber vessel. The 2nd diagonal branch demonstrated a normal vessel. Circumflex Coronary Artery Distribution: The circumflex coronary artery is a normal caliber vessel. The circumflex arises normally from the left main coronary artery and terminates in the AV groove. The circumflex revealed a normal vessel. The 1st obtuse marginal branch is a normal caliber vessel. The 1st obtuse marginal branch showed a normal vessel. The 2nd obtuse marginal branch is a normal caliber vessel. The 2nd obtuse marginal branch demonstrated a normal vessel. Right Coronary Artery Distribution: The right coronary artery is a normal caliber vessel. The RCA arises normally from the right sinus of Valsalva. The RCA showed a normal vessel. The right posterolateral branch is a normal caliber vessel. The right posterolateral branch showed a normal vessel. The right posterior descending artery is a normal caliber vessel. The right posterior descending artery showed a normal vessel. Left Ventriculography: Global left ventricular systolic function was moderately to severely reduced. The LV ejection fraction was 30 to 35%. No intra-ventricular gradient. Complications: No in-lab complications observed. Cardiac Cath Post Procedure Notes: Post Procedure Diagnosis: Angiographically normal coronary arteries. Blood Loss: Estimated blood loss during the procedure was 5 mls. Specimens Removed: Number of specimen(s) removed: none. Recommendations: Maximize medical therapy. Agressive risk factor modification efforts. Follow-up with cardiology clinic. Medical management of coronary artery disease. CONCLUSIONS: 1. Right coronary artery system dominance. 2. Normal coronaries. 3. Elevated LVeDP 34mmHg. 4. Moderate to severely reduced LV systolic function. No intra-ventricular gradient. ICD 10 Codes: Obstructive hypertrophic cardiomyopathy-I42.1 CPT Codes: Left Heart Cath (visualization of coronaries) and [id number]; Moderate Sedation Services initial 15 minutes patient >5 years-[id number]; Moderate Sedation Services 1st additional 15 minutes patient >5 years-[id number]; Moderate Sedation Services 2nd additional 15 minutes patient >5 [id number] Jaxson Osorio MD Performing Physician Final Impression: CONCLUSIONS: 1. Right coronary artery system dominance. 2. Normal coronaries. 3. Elevated LVeDP 34mmHg. 4. Moderate to severely reduced LV systolic function. No intra-ventricular gradient. Relevant Cardiac Testing: Cardiac Cath 12/27/2024 Procedure Findings: Normal coronaries Elevated LVeDP 34mmHg Moderate to severely reduced LV systolic function. No intra-ventricular gradient. CTA Gated Chest WO/W IVCON IMPRESSION: 1. No evidence of a dissection or aneurysm the chest abdomen or pelvis 2. Small bilateral pleural effusions 3. Small amount of fluid within the fissures bilaterally 4. Subpleural reticular changes noted as discussed 5. LEFT atrium is again noted to be enlarged 6. No acute findings in the abdomen or pelvis MICKI 07/25/2024 CONCLUSIONS: - Exam indication: ?Endocarditis - intracardiac device - The left ventricle is [...] the ICD lead seen on today's study. TTE 07/24/2024 CONCLUSIONS: - Technically difficult exam due to [...] prior CC echocardiographic exam performed on 04/25/2021 ([facility]). Mobile echodensity reported today as above. MICKI may better assesss. Assessment/Plan Michelle Mitchell is a 44 y.o. female known to Dr. Amezcua with a past medical history significant for family history of HCM, HOCM with EF 40% (s/p ICD placement in 2006 with lead revision in 2008, and then explant of the entire device with reimplantation of Medtronic single lead PPM in 2017), with recent normal cardiac catheterization for reduced LV function (EF 55% -> 40%), DVT/PE 2017, breast CA in 1998 (s/p lumpectomy and chemotherapy), ovarian CA in 2006 (s/p oophorectomy), endometrial CA (s/p ablation), gallstone pancreatitis despite a prior cholecystectomy found to have biliary duct obstruction s/p stent placement, and transaminitis. Patient was admitted to [facility] in July of 2024 for evaluation of possible IE and ADHF. Blood cultures drawn 07/24. She was treated with IV Lasix. ID consulted. MICKI showed a thin, filamentous echodensity on the RV lead in the right atrium, measuring ~1.4 cm which appears new from MICKI on 2016. Dr. Fonseca and EP agreed likely fibrous material leftover from the previous device extraction in 2016. She was started Toprol XL [address] Fonseca. She was discharged 07/27/2024. Patient admitted to [facility] for chest pain and underwent a cardiac cath on 12/27/2024. Patient presented to [facility] 01/08/2025 and was transferred to [facility] on 01/09/25 for ICD firing in setting of A. Fib RVR. Cardiology has been consulted for concerns of misfiring ICD. Patient's ICD interrogated by Dr. Rojas at the bedside. She has had episodes of atrial fibrillation with RVR heart rates in the 200's with inappropriate shocks for ICD. Atrial Fibrillation with RVR - Patient with episodes of A. Fib RVR heart rates in the 200's. She has had inappropriate shocks by ICD for these episodes. She also has sinus bradycardia on telemetry which makes it more challenging to rate control. Given her underlying transaminitis, Amiodarone would not be recommended at this time. We recommend to continue her BB. Could consider antiarrythmic therapy with Tikosyn given her normal renal function. However, patient would likely benefit from upgrading her PPM with an atrial lead as she currently has Single Lead MDT PPM. Patient has C. Diff diagnosis currently but reports she was told she is not contagious given her recent work up. We will consult infectious disease to evaluate for ongoing infection. Pending ID evaluation, could consider placing atrial lead this afternoon. Will keep patient NPO at this time. - NATACHA?DS?-VASc Score of 3. She is currently in NSR. She is not on OAC. Would recommend heparin infusion for stroke prophylaxis and she will need transitioned to DOAC prior to discharge. - May need to consider AF ablation given her rapid rates, however will discuss with Dr. Amezcua first to see if there are any ongoing discussions for cardiac transplant. - Continue Toprol XL 25 mg daily for now. - Recommend to keep K>4, Mg>2 - TSH: 4.82 HOCM - Patient known to Dr. Amezcua. She is s/p ICD placement in 2006 with lead revision in 2008, and then explant of the entire device with reimplantation of Medtronic single lead PPM in 2016. - EF previously has been stable 50-55%. Newly found to have reduced LV function in September of 2024. EF noted to be 40%. She developed chest pain recently and underwent cardiac cath on 12/27/2024 which revealed normal coronary arteries. - BNP 812 - Patient appears euvolemic and compensated upon exam. - She has been stared on Aldactone, Toprol XL, Jardiance, and she uses PRN lasix. - Recommend to continue Toprol XL 25 mg and resume Jardiance 10 mg daily - Ok to hold Aldactone and lasix for now as she appears euvolemic upon exam. - Repeat echocardiogram ordered - Daily weights - Monitor intake and output closely - Low sodium diet C Diff - Will consult infectious disease. Appreciate input regarding PPM upgrade. - WBC 14 Transaminitis - Managed per primary team. Follows with outpatient GI - ALT: 110, AST: [address] Rojas. Cardiology will continue to follow . Thank you for the Consult. Please reach out with any questions of concerns. Marilee Sheikh APRN-[facility] [1] No past medical history on file. [2] Current Facility-Administered Medications Medication Dose Route Frequency Provider Last Rate Last Admin acetaminophen (Tylenol) tablet 975 mg 975 mg oral 4x daily PRN Home Driscoll DO ALPRAZolam (Xanax) tablet 0.5 mg 0.5 mg oral BID Estefania Hemphill MD 0.5 mg at 01/09/25 0842 cyclobenzaprine (Flexeril) tablet 5 mg 5 mg oral TID PRN Estefania Hemphill MD HYDROmorphone PF (Dilaudid) injection 0.2 mg 0.2 mg intravenous q3h PRN Estefania Hemphill MD 0.2 mg at 01/09/25 0735 lactated Ringer's bolus 1,000 mL 1,000 mL intravenous Once Home Driscoll DO magnesium sulfate 2 g in sterile water for injection 50 mL 2 g intravenous Once Marilee Sheikh APRN-SYDNI melatonin tablet 3 mg 3 mg oral Nightly PRN Home Driscoll DO metoprolol succinate XL (Toprol-XL) 24 hr tablet 25 mg 25 mg oral Daily Home Driscoll DO 25 mg at 01/09/25 0842 ondansetron ODT (Zofran-ODT) disintegrating tablet 4 mg 4 mg oral q8h PRN Estefania Hemphill MD Or ondansetron (Zofran) injection 4 mg 4 mg intravenous q8h PRN Estefania Hemphill MD polyethylene glycol (Glycolax, Miralax) packet 17 g 17 g oral Daily Estefania Hemphill MD potassium chloride CR (Klor-Con M20) ER tablet 20 mEq 20 mEq oral Once ALEXANDRA Tyler sennosides-docusate sodium (Pia-Colace) 8.6-50 mg per tablet 2 tablet 2 tablet oral BID PRN Home Driscoll DO vancomycin (Vancocin) capsule 125 mg 125 mg oral 4x daily Home Driscoll DO [3] Allergies Allergen Reactions [place] Anaphylaxis Shellfish Derived Anaphylaxis Tigan [Trimethobenzamide] Anaphylaxis Vicodin [Hydrocodone-Acetaminophen] Shortness of breath Azithromycin Unknown Levofloxacin Unknown Morphine Hives Prozac [Fluoxetine] Other Suicidal ideation Ultram [Tramadol] Hives Codeine Rash documented in this encounter [facility] Work Phone: 01-09-2025 Consult note Formatting of th is note might be different from the original. Consults Referring physician Dr. Driscoll History of present illness 44-year-old female who has a complicated past medical history came in with misfiring of her ICD. She apparently tested positive for C. difficile on 12-30-2024 at [facility]. Interestingly enough the toxin A&B were negative. She was symptomatic and was having a lot more diarrhea. Patient is going for the defibrillator explant and a new defibrillator placed Past medical history significant for hokum, HFrEF, status post ICD placement, DVT/PE in 2017, PUD, GERD, breast cancer status postlumpectomy and chemotherapy, ovarian cancer status post oophorectomy, endometrial cancer status post ablation, biliary duct obstruction status post stent placement, anxiety, depression, migraines Past surgical history as above Social history currently no drinking smoking drug use though she did use cigarettes in the past Allergies Levaquin she does not recall what happened it was during surgery she was given this but was told never to have it again, azithromycin she gets itching rash A 10 point review system was obtained with the patient denying any complaints outside of those listed in HPI above Physical exam HEENT PERRLA Chest entry bilaterally CVS S1-S2 regular Abdomen soft nontender positive bowel sound Extremities no pitting edema Labs and radiology reviewed Impression: 44-year-old female who is going for an explant of a defibrillator due to missed firing. She can get a preop antibiotic with IV Vanco and she should continue with oral Vanco 125 mg p.o. 4 times daily for 3 days after her surgery to prevent C. difficile from reactivating. The patient's PCR was positive but toxin A&B were negative but patient was symptomatic with worsening diarrhea. Suggestion: Vancomycin IV prior to explant per OR protocol 2. Continue oral Vanco 125 p.o. 4 times daily for 3 more days Thank for this consult follow with you as needed I have reviewed and interpreted all lab tests and imaging studies and documentations from other healthcare providers We are monitoring antibiotics for side effects, toxicity and vancomycin levels [facility] Work Phone: 01-09-2025 Consult note Associated Order (s): Inpatient consult to Cardiology Cardiology Consult Note Inpatient consult to Cardiology Consult performed by: Marilee Sheikh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 ACUTE MEDICAL ISSUES: A-fib RVR, resolved Sinus bradycardia MSK type chest pain Leukocytosis, chronic, stable Transaminitis CHRONIC MEDICAL ISSUES: HOCM HFrEF EF 40% s/p ICD DVT/PE 2017 PAD GERD Tobacco use disorder Breast cancer s/p lumpectomy and chemotherapy Ovarian cancer s/p oophorectomy Endometrial cancer s/p ablation Biliary duct obstruction s/p stent Anxiety with depression Migraines PLAN: Cardiology consulted ID consulted by cardiology for C.diff Continue oral Vancomycin for 3 more days to complete 10 day course Continue home medications CXR, ECG, TTE ordered Trend liver enzymes and wbc Will give 1L LR bolus Nutrition: Regular GI ppx: None DVT/PE ppx: Low score Abx: Oral Vancomycin O2: RA Dispo: Estimated length of stay 1-2 days. Home Driscoll DO [facility] Medicine *This note was dictated using [employer] or [facility] speech recognition software. Please, excuse any grammatical errors*. [1] No past medical history on file. 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 [4] Social History Tobacco Use Smoking status: Every Day Current packs/day: 0.50 Types: Cigarettes Smokeless tobacco: Never Substance Use Topics Alcohol use: Never [5] Medications Prior to Admission Medication Sig Dispense Refill Last Dose/Taking albuterol (Ventolin HFA) 90 mcg/actuation inhaler Inhale 2 puffs every 6 hours if needed for wheezing. Past Month ALPRAZolam (Xanax) 0.5 mg tablet Take 1 tablet (0.5 mg) by mouth 2 times a day. 01/08/2025 empagliflozin (Jardiance) 10 mg tablet Take 1 tablet (10 mg) by mouth once daily. 90 tablet 3 01/08/2025 furosemide (Lasix) 20 mg tablet Take 1 tablet (20 mg) by mouth once daily as needed (edema). More than a month metoprolol succinate XL (Toprol-XL) 25 mg 24 hr tablet Take 1 tablet (25 mg) by mouth once daily. Do not crush or chew. 90 tablet 3 01/08/2025 ondansetron ODT (Zofran-ODT) 4 mg disintegrating tablet Dissolve 1 tablet (4 mg) in the mouth every 4 hours if needed for nausea or vomiting. Past Week pantoprazole (ProtoNix) 40 mg EC tablet Take 1 tablet (40 mg) by mouth 2 times a day. Do not crush, chew, or split. 01/08/2025 psyllium (Metamucil) 3.4 gram packet Take 1 packet by mouth once daily as needed. More than a month spironolactone (Aldactone) 25 mg tablet Take 1 tablet (25 mg) by mouth once daily. 30 tablet 11 01/08/2025 sucralfate (Carafate) 1 gram tablet Take 1 tablet (1 g) by mouth 2 times a day. 01/08/2025 vancomycin (Vancocin) 125 mg capsule Take 1 capsule (125 mg) by mouth 4 times a day. 01/08/2025 varenicline tartrate (Chantix KENNETH) 0.5 mg (11)- 1 mg (42) tablet Use as directed on package instructions, try to quit smoking after 1 week. 42 each 1 01/08/2025 zolpidem (Ambien) 10 mg tablet Take 1 tablet (10 mg) by mouth as needed at bedtime for sleep. 01/08/2025 [6] No family history on file. [7] Medications Prior to Admission Medication Sig Dispense Refill Last Dose/Taking albuterol (Ventolin HFA) 90 mcg/actuation inhaler Inhale 2 puffs every 6 hours if needed for wheezing. Past Month ALPRAZolam (Xanax) 0.5 mg tablet Take 1 tablet (0.5 mg) by mouth 2 times a day. 01/08/2025 empagliflozin (Jardiance) 10 mg tablet Take 1 tablet (10 mg) by mouth once daily. 90 tablet 3 01/08/2025 furosemide (Lasix) 20 mg tablet Take 1 tablet (20 mg) by mouth once daily as needed (edema). More than a month metoprolol succinate XL (Toprol-XL) 25 mg 24 hr tablet Take 1 tablet (25 mg) by mouth once daily. Do not crush or chew. 90 tablet 3 01/08/2025 ondansetron ODT (Zofran-ODT) 4 mg disintegrating tablet Dissolve 1 tablet (4 mg) in the mouth every 4 hours if needed for nausea or vomiting. Past Week pantoprazole (ProtoNix) 40 mg EC tablet Take 1 tablet (40 mg) by mouth 2 times a day. Do not crush, chew, or split. 01/08/2025 psyllium (Metamucil) 3.4 gram packet Take 1 packet by mouth once daily as needed. More than a month spironolactone (Aldactone) 25 mg tablet Take 1 tablet (25 mg) by mouth once daily. 30 tablet 11 01/08/2025 sucralfate (Carafate) 1 gram tablet Take 1 tablet (1 g) by mouth 2 times a day. 01/08/2025 vancomycin (Vancocin) 125 mg capsule Take 1 capsule (125 mg) by mouth 4 times a day. 01/08/2025 varenicline tartrate (Chantix KENNETH) 0.5 mg (11)- 1 mg (42) tablet Use as directed on package instructions, try to quit smoking after 1 week. 42 each 1 01/08/2025 zolpidem (Ambien) 10 mg tablet Take 1 tablet (10 mg) by mouth as needed at bedtime for sleep. 01/08/2025 [8] ALPRAZolam, 0.5 mg, oral, BID metoprolol succinate XL, 25 mg, oral, Daily polyethylene glycol, 17 g, oral, Daily vancomycin, 125 mg, oral, 4x daily [9] [10] PRN medications: acetaminophen, cyclobenzaprine, HYDROmorphone, melatonin, ondansetron ODT OR ondansetron, sennosides-docusate sodium [facility] Work Phone: 01-09-2025 Plan of care note The patient's goals for the shift include The clinical goals for the shift include Patient to maintain HR WNL throughout end of shift [facility] 01-09-2025 Plan of care note Problem: Pain - Adult Goal: Verbalizes/displays adequate comfort level or baseline comfort level Outcome: Progressing Problem: Safety - Adult Goal: Free from fall injury Outcome: Progressing The patient's goals for the shift include have chest pain under control The clinical goals for the shift include Patient to maintain HR WNL throughout end of shift [facility] Work Phone: 12-31-2024 Discharge summary Note Date/Time December 31, 2024 3:35pm [facility] Medical Records Department [address] [place] [address] Discharge Summary 12/31/24 1304 MR#: [id number] Acct: [id number] Name: MICHELLE MITCHELL Rep #:[id number] : 1980 44 From: Emerson Arciniega PCP: Dr. Dex Wilkinson MD Status:A DM KISHA Location: [place] [address] Providers Date of Admission: 12/28/24 Date of Discharge: 12/31/24 Primary Care Physician: Dr. Dex Wilkinson MD Consultations 12/30/24 16:17 Consult: Infectious Disease Routine Consulting Provider: Renan Stovall Reason for Consult: cdiff pcr positive with abd pain, diarrhea, Antigen &toxin neg EMERGENT Consult: No MD Notified: Yes Date Notified: 12/30/24 Time Notified: 16:17 Method of Notification: Text Reason For Visit: CHEST PAIN Diagnosis Discharge Diagnosis (1) Chest pain: Status: Acute Code(s): R07.9 - Chest pain, unspecified Plan 1. 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 Patient is being admitted in PCU ? Review of echocardiograms at this facility in an outside facility, her EF is 35 to 40% with RVSP of 65 to 77 mmHg with stage I-II diastolic dysfunction despite her extensive cardiac issues with edema and shortness of breath she is on Lasix as needed and Aldactone daily 12/29: Vitals within normal limit. Pulse ox 98% on room air. Leukocytosis improving. proBNP high. CTA chest shows unremarkable thoracic aorta and pulmonary vessels. Minimal right pleural effusion. Right lung base atelectasis. She had several EKGs in the chart last night. NSR 93/min, LAFB LVH, RSR?pattern suggestive of RV conduction delay. QRS 92 MS, MD 154 ms. QT 392 ms repeat EKG did not show significant change. Serial troponins 61, 57 and 31 pending. Yesterday it was 37. Patient had cardiac cath in the with normal coronary arteries. Will try to get records from . She follows with HF specialist Dr. Radu Kay and she is on heart failure regimen. She had also been evaluated in [facility] before but she does not want to go there anymore. She has single-lead ICD. Forms Builder consulted 12/30: Discussed with operator specialist communications. Chest pain is resolved with Toradol. Upper abdominal pain/diarrhea secondary to C. difficile colitis: Patient raise concern of pancreatitis for which serum lipase was done which is normal. She also has diarrhea started about 9-10 times which is better. Stool for enteric pathogen panel and C. difficile were ordered. Acute pancreatitis ruled out. Lactobacillus and Creon ordered. Patient also given option for discharge and follow-up with PCP tomorrow morning for pain management. Later on, C. difficilePCR positive but toxins are pending. Patient does not have leukocytosis. 12/31: C. difficile toxin and antigen A and B are negative. I had discussion with Dr. Stovall, infectious disease relationship consultant. We agree that in view of positive symptoms of abdominal pain diarrhea and leukocytosis even though leukocytosis got better on its own before starting vancomycin oral on 12/30. Hehad advised 10 days of oral vancomycin and prescription sent to her pharmacy 2. Leukocytosis secondary to C. difficile colitis ? CT chest ordered described above. Being monitored off antibiotic leukocytosis improving. 12/30: Leukocytosis resolved. Lactic acid 1.9. Not suspicious for any fever. 12/31: Retrospectively with C. difficile infection but leukocytosis resolved even before restarting the vancomycin yesterday afternoon. 3. Extensive GI evaluations with possible IBD versus IBS/GERD. She had a history of chronic abdominal pain and failed celiac plexus block by Dr. Dennison in summer this year. She was admitted in September 2023 for upper abdominal pain. ? 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 Subsequent MRCP was unremarkable ? Continue with her PPI and Carafate 12/30: Had extensive discussion with Dr. Myles. He said he had done several repeated investigations which does not confirm any correlate for pancreatitis. She wanted different pain management rather than Dr. Dennison. Advised follow-up with PCP 4. Anxiety ? Continue with Xanax DVT: Lovenox Discharge medication reconciliation done. Discharge follow-up instructions completed. Discharge process discussed with the patient and all questions wereanswered to patient's satisfaction. Follow with PCP in 1 to 2 weeks Total time spent, exact 35 minutes on discharge meds reconciliation, examination, coordination of care with nurses and ancillary staff, review of imaging and blood test and discussion with the patient on follow-up instructions. Microbiology Past 72 Hours 12/30/24 10:12 Stool Clostridioides difficile (PCR) - Final 12/29/24 19:34 Mucosa - Nasopharyngeal SARS-CoV-2, Influenza & RSV (PCR) - Final Laboratory Results 12/29/24 09:23: Lipase 16 12/29/24 17:52: Lactic Acid 1.9 12/30/24 10:57: WBC 9.9, RBC 3.76 L, Hgb 11.7 L, Hct 35.5 L, MCV 94.4, MCH 31.1,MCHC 33.0, RDW Std Deviation 49.7 H, RDW Coeff of Damon 14.4, Plt Count 257, MPV 10.7, Immature Gran % (Auto) 0.700, Neut % (Auto) 76.0 H, Lymph % (Auto) 15.8 L,[place] % (Auto) 4.2, Eos % (Auto) 2.6, Baso % (Auto) 0.7, Absolute Neuts (auto) 7.5, Absolute Lymphs (auto) 1.56, Nucleated RBC % 0 Medications at Discharge Home Medications alprazolam 0.5 [...] 25 mg PO DAILY WATER PILL 08/20/24 empagliflozin 10 mg tablet (Jardiance) 10 mg PO QDAY 10/12/24 furosemide 20 mg tablet (Lasix) 20 mg PO QDAY PRN edema 10/17/24 ondansetron 4 mg disintegrating tablet 4 mg PO Q8H PRN PRN Nausea #10 tabs 11/25/24 varenicline tartrate 0.5 mg (11)-1 mg (42) tablets in a dose pack tab PO BID smoking cessation 11/25/24 L.acidophil,salivari-Bifido bifidum-Strep thermoph 175 mg capsule 1 cap PO TID #0 caps 12/31/24 luaayt-jjuwfnrf-mcoofkl 24,000-76,000-120,000 unit capsule,delayed rel (Creon) 2cap PO TIDCM 1 month #180 caps 12/31/24 vancomycin 125 mg capsule (Vancocin) 125 mg PO Q6H 10 days #40 caps 12/31/24 Physical Exam Narrative Seen and examined Patient chest pain has resolved. Abdominal pain still there but better. Diarrhea has improved about 2-3 times today. Serum lipase normal. Physical exam General: Alert, Oriented x3, Cooperative. BMI 21.5 kg/m? HEENT: Atraumatic, PERRLA, EOMI, Normocephalic. Oral: No Gingival or Mucosal Lesions/ Ulcerations Neck: Supple, No JVD, Negative Carotid Bruits Chest wall/Lungs: Air entry diminished in bilateral lung bases. No crepitation/rhonchi Cardiovascular: Right subclavicular single-lead AICD. S1-S2 regular, Abdomen: Mild upper abdominal tenderness, bowel Sounds Present, Soft, nondistended : No dysuria. No renal angle tenderness. No suprapubic tenderness. Extremities: No edema, Capillary Refill Less than 3 Seconds Skin: No rashes, No breakdown Musculoskeletal: No Tenderness to Palpation of Joints or Extremities. Decreasedmuscle mass of extremities Neurological: Cranial nerves II-XII grossly intact, DTR 2+/4. No acute focal neurological deficit. Psych/Mental Status: Mild pain Weight / BMI Weight Weight: 125 lb 3.561 oz Body Mass Index (BMI) 21.4 ABG / Lab / Microbiology Data 12/30/24 10:57 12/29/24 05:32 Microbiology: Microbiology 12/30/24 10:12 Stool Enteric Bacteriology - Final 12/30/24 10:12 Stool C. difficile GDH Antigen & Toxins - Final 12/30/24 10:12 Stool Clostridioides difficile (PCR) - Final 12/29/24 19:34 Mucosa - Nasopharyngeal SARS-CoV-2, Influenza & RSV (PCR) - Final D/C Instructions DC O2, CPAP, BIPAP Needs Home O2 Discharge instructions: No Meaningful Use Info Meaningful Use Meaningful Use Diagnoses (Choose all that apply): None applicable Discharge Plan Admission Admit Date/Time: 12/28/24 10:50 Primary Reason for Your Visit: C. difficile colitis Attending Provider: Emerson Sierra Primary Care Provider: Dex Wilkinson Consulting Providers: Carlos Ashford Discharge Orders/Prescriptions Prescriptions: New L.acidoph,saliva-B.bif-S.therm 175 mg Capsule 1 cap PO TID Qty: 0 0RF Rx Instructions: For 2 weeks Creon 24,000-76,000 -120,000 unit Capsule,Delayed Release(Dr/Ec) 2 cap PO TIDCM 30 Days Qty: 180 0RF vancomycin [Vancocin] 125 mg capsule 125 mg PO Q6H 10 Days Qty: 40 0RF Continued metoprolol succinate 25 mg tablet [...] (11)- 1 mg (42) tablets,dose pack PO BID ondansetron 4 mg tablet,disintegrating 4 mg PO Q8H PRN PRN (Reason: Nausea) Qty: 10 0RF Referrals / Follow Up: Dex Wilkinson MD [Primary Care Provider, Family Practice] - Within 1 Week Disposition Disposition (needs filled in before D/C Order can be placed): Home, Self Care Charges/Coding Visit Charges Inpatient E&M: 64858 Disch Hosp >30min 12/31/24 1435 <Electronically signed by Emerson Sierra MD> Cosigner Signature (if applicable): CC: Dr. Dex Wilkinson MD; Dr. Emerson Sierra MD~ Signed [facility] Work Phone: 1(699) 665-184810-20-2025 Hospital Discharge instructionsAdditional Instructions Date of Discharge: 12/31/24[facility] Work Phone: 1(837) 571-507710-20-2025 [facility]10-20-2025 Discharge summary Author Emerson Sierra [facility] Note Date/Time December 31, 2024 3 :36pm [facility] Medical Records Department [address] [place] [address] Instructions for Home/Discharge Instructions 12/31/24 1058 MR#: [id number] Acct: [id number] Name: MICHELLE MITCHELL Rep #:[id number] : 1980 44 From: Emerson Arciniega PCP: Dr. Dex Wilkinson MD Status:A DM KISHA Discharge Instructions DC O2, CPAP, BIPAP needs Home O2 Discharge instructions: No Follow Up Care Test Results: Test results from this visit will be discussed in further detail at your follow- up appointment, if applicable. Discharge Plan Admission Admit Date/Time: 12/28/24 10:50 Primary Reason for Your Visit: C. difficile colitis Attending Provider: Emerson Sierra Primary Care Provider: Dex Wilkinson Consulting Providers: Carlos Ashford Discharge Orders/Prescriptions Prescriptions: [place],saliva-B.bif-S.therm 175 mg Capsule 1 cap PO TID Qty: 0 0RF Rx Instructions: For 2 weeks Creon 24,000-76,000 -120,000 unit Capsule,Delayed Release(Dr/Ec) 2 cap PO TIDCM 30 Days Qty: 180 0RF vancomycin [Vancocin] 125 mg capsule 125 mg PO Q6H 10 Days Qty: 40 0RF Continued metoprolol succinate 25 mg tablet [...] (11)- 1 mg (42) tablets,dose pack PO BID ondansetron 4 mg tablet,disintegrating 4 mg PO Q8H PRN PRN (Reason: Nausea) Qty: 10 0RF Referrals / Follow Up: Dex Wilkinson MD [Primary Care Provider, Family Practice] - Within 1 Week Renan Stovall MD [Med Staff - Active Staff, Infectious Disease] - Within 1 Month Referral Note: As needed needed if diarrhea/abdominal continues to see persistent C. difficile Disposition Disposition (needs filled in before D/C Order can be placed): Home, Self Care 12/31/24 1436<Electronically signed by Emerson Sierra MD>Emerson Sierra MD CC: Dr. Dex Wilkinson MD; Dr. Carlos Ashford MD ~ Signed [facility] Work Phone: [phone] 241-113610-19-2025 Progress note Author Emerson Sierra [facility] Note Date/Time December 30, 2024 5 :20pm [facility] Medical Records Department [address] [place] [id number] Progress Note - Hospitalist 12/30/24 1518 MR#: [id number] Acct: [id number] Name: MICHELLE MITCHELL Rep #:[id number] : 1980 44 From: Emerson Arciniega PCP: Dr. Dex Wilkinson MD Status:A DM KISHA Location: [place] [address] Hospitalist Note C. difficile PCR positive but C. difficile A and B antigens and toxins are negative. Patient started having abdominal pain yesterday afternoon which was felt like moving from chest to abdomen. She also having diarrhea, patient claimed 10 yesterday and 1 today. She had antibiotic 3 days of amoxicillin about a month ago followed by antifungal for some pneumonia, details not available Patient has history of chronic abdominal pain and follows pain management and had celiac block as mentioned in previous note. Patient also carries diagnosis of chronic pancreatitis. Initially thought her pain is chronic abdominal pain but might be from C. difficile in the appropriate clinical setting as mentioned above. Therefore started on vancomycin 125 mg Q4 hourly. Discussed with infectious disease Dr. Stovall tomorrow. 12/30/24 1620 <Electronically signed by Emerson Sierra MD> Cosigner Signature (if applicable): CC: ~ Signed [facility] Work Phone: 1([phone]) 460-988710-19-2025 Progress note Author Emerson Sierra [facility] Note Date/Time December 30, 2024 1 :07pm [facility] Medical Records Department [address] [place] [address] Progress Note - Hospitalist 12/30/24 1124 MR#: [id number] Acct: [id number] Name: MICHELLE MITCHELL Rep #:[id number] : 1980 44 From: Emerson Arciniega PCP: Dr. Dex Wilkinson MD Status:A DM IKSHA Location: [place] [address] Objective Data Objective Data Vital Signs: Vital Signs Temp Pulse Resp BP Pulse Ox O2 Del Method 97.1 F L 67 18 114/75 98 Room Air 12/30/24 08:39 12/30/24 08:40 12/30/24 08:39 12/30/24 08:39 12/30/24 08:39 12/30/24 08:39 Oxygen Delivery Method Room Air Weight: 125 lb 3.561 oz Body Mass Index (BMI) 21.4 Intake & Output: Intake and Output for Last 24 Hours 12/28/24 12/29/24 12/30/24 23:59 23:59 23:59 Intake Total 410 / 410 100 / 100 Balance 410 / 410 100 / 100 Lab / Micro Data 12/30/24 10:57 12/29/24 05:32 Labs: Laboratory Results - last 24 hr 12/29/24 09:23: Lipase 16 12/29/24 17:52: Lactic Acid 1.9 12/30/24 10:57: WBC 9.9, RBC 3.76 L, Hgb 11.7 L, Hct 35.5 L, MCV 94.4, MCH 31.1,MCHC 33.0, RDW Std Deviation 49.7 H, RDW Coeff of Damon 14.4, Plt Count 257, MPV 10.7, Immature Gran % (Auto) 0.700, Neut % (Auto) 76.0 H, Lymph % (Auto) 15.8 L,[place] % (Auto) 4.2, Eos % (Auto) 2.6, Baso % (Auto) 0.7, Absolute Neuts (auto) 7.5, Absolute Lymphs (auto) 1.56, Nucleated RBC % 0 Micro: Microbiology 12/30/24 10:12 Stool Clostridioides difficile (PCR) - Final 12/29/24 19:34 Mucosa - Nasopharyngeal SARS-CoV-2, Influenza & RSV (PCR) - Final Physical Exam Narrative Seen and examined Patient chest pain has resolved but he started having abdominal pain mainly upper yesterday afternoon. She also had diarrhea but has not slowed down. She had 1 in the morning and stool samples were sent. Serum lipase normal. Upper abdominal pain she complained is more like cramps. Physical exam General: Alert, Oriented x3, Cooperative. BMI 21.5 kg/m? HEENT: Atraumatic, PERRLA, EOMI, Normocephalic. Oral: No Gingival or Mucosal Lesions/ Ulcerations Neck: Supple, No JVD, Negative Carotid Bruits Chest wall/Lungs: Air entry diminished in bilateral lung bases. No crepitation/rhonchi Cardiovascular: Right subclavicular single-lead AICD. S1-S2 regular, Abdomen: Mild upper abdominal tenderness, bowel Sounds Present, Soft, nondistended : No dysuria. No renal angle tenderness. No suprapubic tenderness. Extremities: No edema, Capillary Refill Less than 3 Seconds Skin: No rashes, No breakdown Musculoskeletal: No Tenderness to Palpation of Joints or Extremities. Decreasedmuscle mass of extremities Neurological: Cranial nerves II-XII grossly intact, DTR 2+/4. No acute focal neurological deficit. Psych/Mental Status: In pain Assessment & Plan Assessment/Plan (1) Chest pain: PLAN: Plan 1. 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 Patient is being admitted in PCU ? Review of echocardiograms at this facility in an outside facility, her EF is 35 to 40% with RVSP of 65 to 77 mmHg with stage I-II diastolic dysfunction despite her extensive cardiac issues with edema and shortness of breath she is on Lasix as needed and Aldactone daily 12/29: Vitals within normal limit. Pulse ox 98% on room air. Leukocytosis improving. proBNP high. CTA chest shows unremarkable thoracic aorta and pulmonary vessels. Minimal right pleural effusion. Right lung base atelectasis. She had several EKGs in the chart last night. NSR 93/min, LAFB LVH, RSR?pattern suggestive of RV conduction delay. QRS 92 MS, MD 154 ms. QT 392 ms repeat EKG did not show significant change. Serial troponins 61, 57 and 31 pending. Yesterday it was 37. Patient had cardiac cath in the which with normal coronary arteries. Will try to get records from . She follows with HF specialist Dr. Radu Kay and she is on heart failure regimen. She had also been evaluated in [facility] before but she does not want to go there anymore. She has single-lead ICD. Forms Builder consulted 12/30: Discussed with operator specialist communications. Chest pain is resolved with Toradol. Upper abdominal pain since yesterday: Patient raise concern of pancreatitis for which serum lipase was done which is normal. She also has diarrhea started about 9-10 times which is better. Stool for enteric pathogen panel and C. difficile were ordered. Acute pancreatitis ruled out. Lactobacillus and Creon ordered. Patient also given option for discharge and follow-up with PCP tomorrow morning for pain management. Later on, C. difficile PCR positive but toxins are pending. Patient does not have leukocytosis. Will follow for toxin. 2. Leukocytosis ? Does not look like infectious in etiology probably inflammatory. CT chest ordered described above. Being monitored off antibiotic leukocytosis improving. 12/30: Leukocytosis resolved. Lactic acid 1.9. Not suspicious for any fever. 3. Extensive GI evaluations with possible IBD versus IBS/GERD. She had a history of chronic abdominal pain and failed celiac plexus block by Dr. Dennison in summer this year. She was admitted in September 2023 for upper abdominal pain. ? 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 Subsequent MRCP was unremarkable ? Continue with her PPI and Carafate 12/30: Had extensive discussion with Dr. Myles. He said he had done several repeated investigations which does not confirm any correlate for pancreatitis. She wanted different pain management rather than Dr. Dennison. Advised follow-up with PCP 4. Anxiety ? Continue with Xanax DVT: Lovenox Microbiology Past 72 Hours 12/30/24 10:12 Stool Clostridioides difficile (PCR) - Final 12/29/24 19:34 Mucosa - Nasopharyngeal SARS-CoV-2, Influenza & RSV (PCR) - Final Laboratory Results 12/29/24 09:23: Lipase 16 12/29/24 17:52: Lactic Acid 1.9 12/30/24 10:57: WBC 9.9, RBC 3.76 L, Hgb 11.7 L, Hct 35.5 L, MCV 94.4, MCH 31.1,MCHC 33.0, RDW Std Deviation 49.7 H, RDW Coeff of Damon 14.4, Plt Count 257, MPV 10.7, Immature Gran % (Auto) 0.700, Neut % (Auto) 76.0 H, Lymph % (Auto) 15.8 L,[place] % (Auto) 4.2, Eos % (Auto) 2.6, Baso % (Auto) 0.7, Absolute Neuts (auto) 7.5, Absolute Lymphs (auto) 1.56, Nucleated RBC % 0 Charges/Coding Visit Charges Inpatient E&M: 32421 Subs Hosp L2 12/30/24 1206 <Electronically signed by Emerson Sierra MD> Cosigner Signature (if applicable): CC: ~ Signed ADDENDUM by Dr. Emerson Sierra MD on 12/30/24 at 1207 Visit Charges Inpatient E&M: 92092 Subs Hosp L2 12/30/24 1207<Electronically signed by Emerson Sierra MD> Cosigner Signature (if applicable): cc: ~* Signed [facility] Work Phone: 1(325) 448-274610-18-2025 Progress note Author Emerson Sierra [facility] Note Date/Time December 29, 2024 8 :14pm [facility] Medical Records Department [address] [place] [address] Progress Note - Hospitalist 12/29/24924 MR#: [id number] Acct: [id number] Name: MICHELLE MITCHELL Rep #:[id number] : 1980 44 From: Emerson Arciniega PCP: Dr. Dex Wilkinson MD Status:A DM KISHA Location: [place] [address] Objective Data Objective Data Vital Signs: Vital Signs Temp Pulse Resp BP Pulse Ox O2 Del Method 97.9 F 101 H 18 127/96 H 98 Room Air 12/29/24 08:15 12/29/24 08:15 12/29/24 08:15 12/29/24 08:15 12/29/24 08:15 12/29/24 08:16 Oxygen Delivery Method Room Air Weight: 125 lb 3.561 oz Body Mass Index (BMI) 21.4 Intake & Output: Intake and Output for Last 24 Hours 12/27/24 12/28/24 12/29/24 23:59 23:59 23:59 Intake Total 410 / 410 Balance 410 / 410 Lab / Micro Data 12/29/24 05:32 12/29/24 05:32 Labs: Laboratory Results - last 24 hr 12/28/24 10:40: Urine Color Yellow, Urine Clarity Clear, Urine pH 7.0, Ur Specific [place] 1.010, Urine Protein 30 H, Urine Glucose (UA) 1000 H, Urine Ketones Negative, Urine Occult Blood 25 H, Urine Nitrite Negative, Urine Bilirubin Negative, Urine Urobilinogen Normal, Ur Leukocyte Esterase Negative, Urine RBC 0-5 SEEN, Urine WBC 0 SEEN, Ur Squamous Epith Cells 0-5 SEEN, Urine Bacteria 0 SEEN, Urine Mucus 0 SEEN 12/28/24 10:53: Troponin T Hi Sens 2 Hr Cancelled 12/28/24 12:56: Troponin T Hi Sens 4Hr 37 H 12/29/24 05:32: WBC 16.3 H, RBC 3.79 L, Hgb 11.9 L, Hct 35.8 L, MCV 94.5, MCH 31.4, MCHC 33.2, RDW Std Deviation 50.0 H, RDW Coeff of Damon 14.5, Plt Count 234,MPV 10.8, Immature Gran % (Auto) 0.400, Neut % (Auto) 86.6 H, Lymph % (Auto) 9.5L, [place] % (Auto) 2.7, Eos % (Auto) 0.4, Baso % (Auto) 0.4, Absolute Neuts (auto)14.1 H, Absolute Lymphs (auto) 1.55, Nucleated RBC % 0, Sodium 136, Potassium 4.3, Chloride 104, Carbon Dioxide 20.0 L, Anion Gap 12, BUN 21 H, Creatinine 0.79, Estim Creat Clear Calc 77.66, Est GFR (MDRD) Non-Af 94, BUN/Creatinine Ratio 26.6 H, Glucose 96, Calcium 9.4, Troponin T High Sens 61 H* D 12/29/24 07:31: Troponin T Hi Sens 2 Hr 57 H* Physical Exam Narrative Seen and examined Patient complain of severe chest pain, 11/21 like elephant sitting on the chest from xiphisternum to left shoulder and throat in the triangular region. Complained of dyspnea on exertion even going to bathroom but not at rest. She also had vomited 1 yesterday night and 1 today. Had fever 3 days ago. Physical exam General: Alert, Oriented x3, Cooperative. BMI 21.5 kg/m? HEENT: Atraumatic, PERRLA, EOMI, Normocephalic. Oral: No Gingival or Mucosal Lesions/ Ulcerations Neck: Supple, No JVD, Negative Carotid Bruits Chest wall/Lungs: Air entry diminished in bilateral lung bases. No crepitation/rhonchi Cardiovascular: Right subclavicular single-lead AICD. S1-S2 regular, Abdomen: Mild upper abdominal/xiphisternal tenderness bowel Sounds Present, Soft, nondistended : No dysuria. No renal angle tenderness. No suprapubic tenderness. Extremities: No edema, Capillary Refill Less than 3 Seconds Skin: No rashes, No breakdown Musculoskeletal: No Tenderness to Palpation of Joints or Extremities. Decreasedmuscle mass of extremities Neurological: Cranial nerves II-XII grossly intact, DTR 2+/4. No acute focal neurological deficit. Psych/Mental Status: In pain Assessment & Plan Assessment/Plan (1) Chest pain: PLAN: Plan 1. 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 Patient is being admitted in PCU ? Review of echocardiograms at this facility in an outside facility, her EF is 35 to 40% with RVSP of 65 to 77 mmHg with stage I-II diastolic dysfunction despite her extensive cardiac issues with edema and shortness of breath she is on Lasix as needed and Aldactone daily 12/29: Vitals within normal limit. Pulse ox 98% on room air. Leukocytosis improving. proBNP high. CTA chest shows unremarkable thoracic aorta and pulmonary vessels. Minimal right pleural effusion. Right lung base atelectasis. She had several EKGs in the chart last night. NSR 93/min, LAFB LVH, RSR?pattern suggestive of RV conduction delay. QRS 92 MS, MD 154 ms. QT 392 ms repeat EKG did not show significant change. Serial troponins 61, 57 and 31 pending. Yesterday it was 37. Patient had cardiac cath in the with normal coronary arteries. Will try to get records from . She follows with HF specialist Dr. Radu Kay and she is on heart failure regimen. She had also been evaluated in [facility] before but she does not want to go there anymore. She has single-lead ICD. Forms Builder consulted 2. Leukocytosis ? Does not look like infectious in etiology probably inflammatory. CT chest ordered described above. Being monitored off antibiotic leukocytosis improving. 3. Extensive GI evaluations with possible IBD versus IBS/GERD. She had a history of chronic abdominal pain and failed celiac plexus block by Dr. Dennison in summer this year. She was admitted in September 2023 for upper abdominal pain. ? 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 Subsequent MRCP was unremarkable ? Continue with her PPI and Carafate 4. Anxiety ? Continue with Xanax DVT: Lovenox Charges/Coding Visit Charges Inpatient E&M: 66744 Subs Hosp L2 12/29/24 0941 <Electronically signed by Emerson Sierra MD> Cosigner Signature (if applicable): CC: ~ Signed ADDENDUM by Dr. Emerson Sierra MD on 12/29/24 at 1914 Addendum Total time of the visit including total time spent in counseling or coordinationof care, (more than 50% of the total time, spent in obtaining medical information from nurses and other ancillary care providers ,explaining to the patient about labs, imaging, diagnosis and management of active complex medical conditions), discussion with operator specialist communications and gastroenterology, review of labs and imaging is 40 minutes. Visit Charges Inpatient E&M: 87545 Subs Hosp L3 12/29/241913<Electronically signed by Emerson Sierra MD> Cosigner Signature (if applicable): cc: ~* Signed [facility] Work Phone: 1([phone] 458-902110-18-2025 Progress note Author Emerson Sierra [facility] Note Date/Time December 29, 2024 8 :14pm [facility] Medical Records Department [address] [place] [address] Progress Note - Hospitalist 12/29/241911 MR#: [id number] Acct: [id number] Name: MICHELLE MITCHELL Rep #:[id number] : 1980 44 From: Emerson Arciniega PCP: Dr. Dex Wilkinson MD Status:A DM KISHA Location: [place] [address] Hospitalist Note Later in the afternoon, patient complained that she had 10 diarrhea episodes. As per nursing staff she saw that she went to bathroom and had a bowel movement. Now she complained that chest pain is gone but having abdominal pain with radiation to the back and she felt like pancreatitis. She is asking to see Dr. Myles Consulted Dr. Myles. After my discussion with Dr. Myles he said patient had detailed evaluation and had all the testings done and he does not have anything more to offer. Patient in the past not satisfied with pain management Dr. Dennison and wanted to see another pain management doctor She is also having nausea and vomiting Symptomatic management with antiemetic and pain management. Serum lipase ordered. Enteric pathogen panel and C. difficile ordered. Discussed with the nursing staff 12/29/241913 <Electronically signed by Emerson Sierra MD> Cosigner Signature (if applicable): CC: ~ Signed [facility] Work Phone: [phone] 179-713810-17-2025 History and physical note Author Carlos Ashford [facility] Note Date/Time December 28, 2024 5 :09pm [facility] Medical Records Department [address] [place] [address] H&P Exam - Hospitalist 12/28/24 1546 MR#: [id number] Acct: [id number] Name: MICHELLE MITCHELL Rep #:[id number] : 1980 44 From: Carlos pena MD PCP: Dr. Dex Wilkinson MD Status:A DM KISHA Location: [place] [address] HPI - General General Date of Admission: 12/28/24 HPI Narrative MICHELLE MITCHELL, is a 44 F who presents to the hospital initially with chest pain she describes the pain as burning in his substernal with radiation to her left side under her left breast. She says that she has shortness of breath as well as orthopnea. She denies any chest pain to palpation, no major lightheadedness but says that she goes between being hot and cold. She does have chronic intermittent diarrhea but she has a lot of GI issues that she sees gastroenterology for including episodes of pancreatitis as well as gallstones. She has had a couple of ERCPs as well as MRCP's. She has had previous cholecystectomies of note CT scan today is unremarkable of her abdomen and pelvis and lipase is normal. As we were discussing about her chest pain she started complaining about epigastric pain the epigastric pain seem to be a little bit more tender with palpation with my hands and it was with palpation tothe stethoscope. Most of her pain was in the mid epigastric region and she did have abdominal pain with rectus muscle activation. She does have an extensive familial cardiac history with her father and sister both requiring heart transplants. She does have a slightly reduced ejection fraction of 40% with stage I-II diastolic dysfunction and moderate to severe pulmonary hypertension. She has not required any oxygen currently and does not have any lower extremity edema, proBNP is elevated to 6000 But she has no other signs or symptoms at [facility] consistent with a heart failure exacerbation. CTA of the chest was negative for PE. [facility] Medical History (Updated 12/28/24 @ 16:[address] 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 cancer Cervical cancer detention current use of 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 Ovarian cancer GERD [...] QDAY PRN rosario a 10/17/24 Unknown History ondansetron 4 mg disintegrating 4 mg PO Q8H PRN PRN Na usea #10 tabs 11/25/24 Unknown Rx tablet varenicline tartrate 0.5 mg (11)-1 tab PO BID smoking cessation 11/25/24 12/27/24 History mg (42) tablets in a dose pack Allergy/AdvReac Type Severity Reaction Status Date / Time gabapentin (From Neurontin) Allergy Severe Anaphylaxis Verified 12/28/24 08:12 morphine Allergy Mild Hives Verified 12/28/24 08:12 codeine Allergy Hives Verified 12/28/24 08:12 erythromycin base Allergy PT UNSURE Verified 12/28/24 08:12 OF REACTION Fish Containing Products Allergy Other Verified 12/28/24 08:12 levofloxacin Allergy PT UNSURE Verified 12/28/24 08:12 OF REACTION shellfish derived Allergy Other Verified 12/28/24 08:12 tramadol Allergy Hives Verified 12/28/24 08:12 trimethobenzamide (From Allergy Other Verified 12/28/24 08:12 Tigan) hydrocodone (From Vicodin) AdvReac Other Verified 12/28/24 08:12 metoclopramide (From Reglan) AdvReac Other Verified 12/28/24 08:12 Family History Father Heart disease Idiopathic hypertrophic [...] house current occupational status: employed Smoking Status: Former smoker how long ago did patient quit smokin months ago alcohol intake: former substance use type: does not use caffeine: Yes ROS Constitutional Constitutional: Reports chills; Denies fatigue, fever(s) or malaise Eyes Eyes: Denies blurry vision ENT HEENT: Denies headache(s) or nasal discharge Cardiovascular Cardiovascular: Reports chest pain, dyspnea on exertion and orthopnea; Denies edema or syncope Respiratory/Chest Respiratory/Chest: Denies cough, shortness of breath at rest or shortness of breath with exertion Gastrointestinal Gastrointestinal: Reports abdominal pain and loose stools; Denies coffee ground emesis, constipation, diarrhea, hematochezia, nausea or vomiting Genitourinary Genitourinary: Denies dysuria Neurologic Neurologic: Denies focal weakness, numbness or tremor(s) Psychiatric Psychiatric: Denies anxiety or depression Vital Signs Vital Signs Vital Signs: 12/28/24 08:07 12/28/24 08:12 12/28/24 09:17 Temperature 95.7 F L Temperature Source Axillary Pulse Rate 96 82 Respiratory Rate 17 19 H Blood Pressure 141/93 H 127/86 H Blood Pressure Mean 109 99 Blood Pressure Source Blood Pressure Position Blood Pressure Location Pulse Ox 100 98 Oxygen Delivery Method Room Air Room Air Room Air 12/28/24 10:00 12/28/24 11:00 12/28/24 11:59 Temperature 95.7 F L Temperature Source Pulse Rate 74 75 75 Respiratory Rate 21 H 20 H 20 H Blood Pressure 121/80 H 123/85 H 123/85 H Blood Pressure Mean 93 97 97 Blood Pressure Source Blood Pressure Position Blood Pressure Location Pulse Ox 98 99 99 Oxygen Delivery Method Room Air 12/28/24 12:00 Temperature 98.1 F Temperature Source Oral Pulse Rate 77 Respiratory Rate 17 Blood Pressure 121/89 H Blood Pressure Mean 99 Blood Pressure Source Monitor Blood Pressure Position Semi-Fowlers Blood Pressure Location Right Arm Pulse Ox 99 Oxygen Delivery Method Room Air Weight Weight: 125 lb 3.561 oz Body Mass Index (BMI) 21.4 Physical Exam Narrative General: Alert, Oriented x3, Cooperative, No apparent distress HEENT: Atraumatic, PERRLA, EOMI, Normocephalic Oral: Moist Mucosa Neck: Supple, No JVD Lungs: Clear to auscultation, Normal air movement, No rhonchi, No wheeze, No rales Cardiovascular: Regular rate, Regular Rhythm, Normal S1, Normal S2, No murmurs Abdomen: Soft, severely tender to manual palpation mildly tender to stethoscope palpation, epigastric pain with rectus muscle activation, Non-Distended, No Hepato-splenomegaly Extremities: No edema, Capillary Refill Less than 3 Seconds Skin: No rashes, No breakdown Musculoskeletal: No Tenderness to Palpation of Joints or Extremities Neurological: No focal neurological deficits, moves all extremities Psych/Mental Status: Normal Affect, Appropriate Results Lab / Micro Data 12/28/24 08:20 12/28/24 08:20 Labs: Laboratory Results - last 24 hr 12/28/24 08:20: WBC 23.2 H, RBC 4.28, Hgb 13.2, Hct 40.6, MCV 94.9, MCH 30.8, MCHC 32.5, RDW Std Deviation 48.7 H, RDW Coeff of Damon 14.1, Plt Count 264, MPV 11.0, Immature Gran % (Auto) 0.800, Neut % (Auto) 96.1 H, Lymph % (Auto) 1.6 L, [place] % (Auto) 1.4, Eos % (Auto) 0.0, Baso % (Auto) 0.1, Absolute Neuts (auto) 22.3 H, Absolute Lymphs (auto) 0.37 L, Nucleated RBC % 0, PT Cancelled, INR Cancelled, APTT Cancelled, Sodium 136, Potassium 4.5, Chloride 104, Carbon Dioxide 18.5 L, Anion Gap 14, BUN 18, Creatinine 0.87, Estim Creat Clear Calc 70.51, Est GFR (MDRD) Non-Af 83, BUN/Creatinine Ratio 20.6 H, Glucose 210 H, Calcium 9.7, Magnesium 1.7, Troponin T High Sens 18 H D, NT pro BNP II 6238 H, Lipase 33 12/28/24 08:30: PT 13.6, INR 1.0, APTT 24.1 12/28/24 10:40: Urine Color Yellow, Urine Clarity Clear, Urine pH 7.0, Ur Specific [place] 1.010, Urine Protein 30 H, Urine Glucose (UA) 1000 H, Urine Ketones Negative, Urine Occult Blood 25 H, Urine Nitrite Negative, Urine Bilirubin Negative, Urine Urobilinogen Normal, Ur Leukocyte Esterase Negative, Urine RBC 0-5 SEEN, Urine WBC 0 SEEN, Ur Squamous Epith Cells 0-5 SEEN, Urine Bacteria 0 SEEN, Urine Mucus 0 SEEN 12/28/24 10:53: Troponin T Hi Sens 2 Hr Cancelled 12/28/24 12:56: Troponin T Hi Sens 4Hr 37 H Imaging Radiology Impression Chest CTA 12/28/24 08:40 IMPRESSION: No evidence of pulmonary embolism. Small right pleural effusion with fluid is seen in the right major fissure. Mild increased markings at the right lung base suggestive of atelectasis and/or scarring. Reading Location: [facility] Assessment & Plan Assessment/Plan (1) Chest pain: PLAN: Plan 1. Chest pain in the setting of known cardiomyopathy and pulmonary hypertension ? Currently not hypoxic or requiring oxygen ? Not in respiratory distress ? There is no lower extremity edema but she states that most of her edema when she has it collects in her abdomen ? Will obtain records from she had a heart catheter yesterday with normal coronary arteries ? Review of echocardiograms at this facility in an outside facility, her EF is 35 to 40% with RVSP of 65 to 77 mmHg with stage I-II diastolic dysfunction despite her extensive cardiac issues with edema and shortness of breath she is on Lasix as needed and Aldactone daily ? EKG is nonischemic and troponins 18 and second troponin is 37 ? Continue with Jardiance 2. Leukocytosis ? Unclear etiology ? She is afebrile ? There is no signs or symptoms of infection either respiratory, abdominal, urinary, or skin ? Therefore we will monitor off antibiotics 3. Extensive GI evaluations with possible IBD versus IBS/GERD ? 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 Subsequent MRCP was unremarkable ? Continue with her PPI and Carafate 4. Anxiety ? Continue with Xanax DVT: Lovenox 75 minutes was spent on direct patient care, including documentation as well as chart review and collaboration with colleagues Charges/Coding Visit Charges Inpatient E&M: 32219 Init Hosp L3 12/28/24 1609 <Electronically signed by Carlos Ashford MD> Cosigner Signature (if applicable): CC: Dr. Dex Wilkinson MD; Dr. Carlos Ashford MD~ Signed [facility] Work Phone: [phone] 956-727510-17-2025 Discharge summary Author Edwin Cuenca [facility] Note Date/Time December 28, 2024 1 1:31am [facility] Medical Records Department [address] [place] [address] Emergency Department Summary 12/28/24 MR#: [id number] Acct: [id number] Name: MICHELLE MITCHELL Rep #:[id number] : 1980 44 From: Edwin Cuenca DO PCP: Dr. Dex Wilkinson MD Status:R EG ER Location: ED HPI History of Present Illness Chief Complaint: Chest Pain Narrative Narrative: Pt is a 44-year-old female is presenting to the ER today with chief complaint ofchest pain. Patient came in by EMS. Patient was at treatment clinic ER on December 26. Patient had evaluation, CTA of the chest, abdomen, pelvis. Patientwas transferred [facility] in [place] where patient had a cardiac cath. Patient's operator specialist communications is Dr. Bishop. GI is Dr Myles. Patient was released yesterday evening around 7 PM. Patient stated that she had the left-sided chest pain that radiated to left side of her neck, left shoulder, into herleft upper arm. Patient has done no heavy lifting, twisting or turning. Patient has multiple allergies. Patient has a significant history. Patient does not have a gallbladder. Patient's just had biliary stents removed last month from Dr. Myles. Patient has AICD. Patient's congestive heart failure physician is in [facility], otherwise she has local physicians patientis given 4 baby aspirin by EMS. Patient states she cannot take nitro, she has allergy to morphine. She is given 4 baby aspirin. Patient states she has a left-sided facial/left frontal headache which is common for her that she has daily. Patient took Nurtec with little relief. Patient's headache was not the worse headache of her life, not sudden onset, not thunderclap in nature. REVIEW OF SYSTEMS: Unless otherwise stated in this report the patient's positiveand negative responses for review of systems for constitutional, eyes, ENT, cardiovascular, respiratory, gastrointestinal, neurological, , musculoskeletal, and integument systems and related systems to the presenting problem are either stated in the history of present illness or were not pertinent or were negative for the symptoms and/or complaints related to the presenting medical problem. Nurse's notes and vital signs reviewed. The patient is not hypoxic. Vital signs reviewed and patient is not hypoxic. General: The patient appears well and in no apparent distress. Patient is resting comfortably on cart. Not toxic, lethargic, or listless. Skin: Warm, dry, no pallor noted. There is no rash noted. Head: Normocephalic, atraumatic patient has no midline or paracervical tenderness to palpation. Forage motion of cervical spine with difficulty.; Eye: Normal conjunctiva, no drainage, EOMI. PERRL. Ears, Nose, Mouth, and Throat: oral mucosa is moist. Nares patent. Mouth withoutvesicles. Cardiovascular: Regular Rate and Rhythm, no murmurs, gallops, or rubs Respiratory: Patient is in no distress, no accessory muscle use, lungs are clearto auscultation, no wheezing, rales or rhonchi Back: non-tender, no CVA tenderness bilaterally to percussion. NO CTLS midline or paraspinal tenderness to palpation. GI: Soft, no tenderness to palpation, no masses appreciated. No rebound, guarding, or rigidity noted. Patient has no midepigastric tenderness to palpation, patient has mild umbilical tenderness to palpation, no suprapubic tenderness palpation, no flank pain medical. Musculoskeletal: The patient has full range of motion of all extremities and joints with no difficulty. Patient has no motor, no sensory deficits. Patient is range of motion of left shoulder with no significant reproduction of pain in the left upper chest or neck. Neurological: A&O x4, normal speech, no focal neurological deficits. Psychiatric: [facility] Medical History Normal Holter exam Cardiology follow-up [...] pain Pulmonary embolism Endometrial cancer Cervical cancer detention current use of 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 Ovarian cancer GERD [...] QDAY PRN rosario a 10/17/24 Unknown History ondansetron 4 mg disintegrating 4 mg PO Q8H PRN PRN Na usea #10 tabs 11/25/24 Unknown Rx tablet varenicline tartrate 0.5 mg (11)-1 tab PO 11/25/24 Unk nown History mg (42) tablets in a dose pack Allergy/AdvReac Type Severity Reaction Status Date / Time gabapentin (From Neurontin) Allergy Severe Anaphylaxis Verified 12/28/24 08:12 morphine Allergy Mild Hives Verified 12/28/24 08:12 codeine Allergy Hives Verified 12/28/24 08:12 erythromycin base Allergy PT UNSURE Verified 12/28/24 08:12 OF REACTION Fish Containing Products Allergy Other Verified 12/28/24 08:12 levofloxacin Allergy PT UNSURE Verified 12/28/24 08:12 OF REACTION shellfish derived Allergy Other Verified 12/28/24 08:12 tramadol Allergy Hives Verified 12/28/24 08:12 trimethobenzamide (From Allergy Other Verified 12/28/24 08:12 Tigan) hydrocodone (From Vicodin) AdvReac Other Verified 12/28/24 08:12 metoclopramide (From Reglan) AdvReac Other Verified 12/28/24 08:12 Family History Father Heart disease Idiopathic hypertrophic [...] house current occupational status: employed Smoking Status: Former smoker how long ago did patient quit smokin months ago alcohol intake: former substance use type: does not use caffeine: Yes EXAM Physical Exam Const Vital Signs: 12/28/24 08:07 12/28/24 08:12 12/28/24 09:17 Temperature 95.7 F L Temperature Source Axillary Pulse Rate 96 82 Respiratory Rate 17 19 H Blood Pressure 141/93 H 127/86 H Blood Pressure Mean 109 99 Pulse Ox 100 98 Oxygen Delivery Method Room Air Room Air Room Air 12/28/24 10:00 Temperature Temperature Source Pulse Rate 74 Respiratory Rate 21 H Blood Pressure 121/80 H Blood Pressure Mean 93 Pulse Ox 98 Oxygen Delivery Method Room Air MDM MDM MDM Narrative Medical decision making narrative: Patient seen and examined: Patient we have IV, repeat labs, patient just had a CTA of the chest abdomen pelvis that was done on December 26. Patient has CT of the chest rule out PE, patient has history of DVT and PE. Patient was given 4 baby aspirin prior to arrival Differential diagnosis includes but is not limited to: ACS, STEMI, pneumonia, pneumothorax, URI, sinusitis, anxiety, vasospasm, pancreatitis Relevant laboratory interpretation: White blood cells 20, troponin 18 Radiological studies: December 26, 2 days ago, CT head chest abdomen pelvis showed no evidence of dissection or aneurysm of the chest abdomen pelvis, small bilateral pleural effusions, small amount of fluid with the fissures bilateral, subpleural reticular changes noted as discussed, left atrium is again noted to be enlarged, no acute findings in the abdomen or pelvis. CTA of the chest shows no PE today, small right pleural effusion with fluid is seen in the right major fissure, mild increased markings at the right lung base suggestive of atelectasis or scarring, no other acute abnormalities. Reevaluation: 0950 patient reevaluated. Nausea has improved. Patient states Dilaudid did help with pain slightly, but she is holding left side of her chest. Patient does have a blood cell count of 23. Patient's BNP is over 6000. Patient has history of hypertrophic cardiomyopathy, patient concerned about her BNP over 6000. Patient was given Pepcid, GI cocktail, small dose of Valium IV. 6784 patient operator specialist communications is Dr. Bishop, I have spoken to Dr. Santamaria. He is aware the patient, recommends admit to medicine, they do not need to be counseled at this time, especially since patient had a normal cardiac cath yesterday. 7640 HOspitalist paged for admission. 1009 repaging for admission 1029 I spoken to the hospitalist, Dr Ashford. We discussed patient's intermittent trending of elevated white blood cells in the past, we discussed pediatric peptide. We will add a urine sample onto the patient, patient will beadmitted to the PCCU for observation. Patient will be informed no acute indication for narcotics, no obvious acute indication for heart failure at this time. Dr Ashford is aware that I have spoken to the operator specialist communications and no recommendations from Dr. Santamaria. Social barriers to healthcare: There are no food insecurities, there is no issuewith transportation, there are no insurance barriers Disposition: This is patient's third ER/hospital visit this week. Patient be admitted for observation for leukocytosis, elevation of B nitrated peptide. Patient has seenDr. Friend last month and had biliary stents removed as well. Lab Data Attestation: I reviewed the patient's lab results. Labs: Laboratory Results - last 24 hr 12/28/24 12/28/24 08:20 08:30 WBC 23.2 H RBC 4.28 Hgb 13.2 Hct 40.6 MCV 94.9 MCH 30.8 MCHC 32.5 RDW Std Deviation 48.7 H RDW Coeff of Damon 14.1 Plt Count 264 MPV 11.0 Immature Gran % (Auto) 0.800 Neut % (Auto) 96.1 H Lymph % (Auto) 1.6 L [place] % (Auto) 1.4 Eos % (Auto) 0.0 Baso % (Auto) 0.1 Absolute Neuts (auto) 22.3 H Absolute Lymphs (auto) 0.37 L Nucleated RBC % 0 PT Cancelled 13.6 INR Cancelled 1.0 APTT Cancelled 24.1 Sodium 136 Potassium 4.5 Chloride 104 Carbon Dioxide 18.5 L Anion Gap 14 BUN 18 Creatinine 0.87 Estim Creat Clear Calc 70.51 Est GFR (MDRD) Non-Af 83 BUN/Creatinine Ratio 20.6 H Glucose 210 H Calcium 9.7 Magnesium 1.7 Troponin T High Sens 18 H D NT pro BNP II 6238 H Lipase 33 Radiography Diagnostic Testing: Clinical Impression(s) from Imaging Studies Chest CTA 12/28/24 08:40 IMPRESSION: No evidence of pulmonary embolism. Small right pleural effusion with fluid is seen in the right major fissure. Mild increased markings at the right lung base suggestive of atelectasis and/or scarring. Reading Location: [facility] EKG Initial EKG: Attestation: I personally reviewed and interpreted this EKG as follows: (EKG interpretation. Normal sinus rhythm 93 beats a minute. Left axis deviation. No acute ST elevation, no acute ectopy. QTc 457) Discharge Plan Triage Chief Complaint: Chest Pain ED Provider: Edwin Cuenca Dx/Rx/DC Orders Prescriptions: No Action metoprolol succinate 25 mg [...] Patient Comments: PT HAS NOT STARTED YET ondansetron 4 mg tablet,disintegrating 4 mg PO Q8H PRN PRN (Reason: Nausea) Qty: 10 0RF Primary Care Provider: Dex Wilkinson Referrals: Dex Wilkinson MD [Primary Care Provider, Family Practice] Print Language: Macanese What to do if you have Problems For any increased pain, shortness of breath, bleeding, nausea or vomiting, chestpain, or any unexpected problems, contact your Primary Care Provider. Call [facility] ([phone]) or report to the closest Emergency Room. Call 911 if necessary. 12/28/24 1031 <Electronically signed by Edwin Cuenca DO> Cosigner Signature (if applicable): CC: Dr. Dex Wilkinson MD ~ Signed [facility] Work Phone: 1([phone]) 636-497310-17-[address] [facility]10-17-[address] [facility]10-16-2025 Telephone encounter Note* Telephone Encounter - Suman Cadena RN - 12/27/2024 7:34 PM EDT S: [facility] with complaints of high blood pressure and pain. B: Symptoms began two days prior to call. Dr. Wilkinson sent patient to [place] ED two days ago, whotransferred her to [facility]. Patient states they performed a cardiac catheterization and promptly discharged her. A: Patient reporting dizziness, nausea, diaphoresis, dyspnea, severe chest pain radiating to her left shoulder, and hypertension. Per patient, last reading was 156/101 by the staff nurse at [facility] just before discharge. Patient reports the only time she wasn't in pain was when the hospital was giving her narcotics. Denies vomiting, fever, or cough. R: Patient requesting that Dr. Wilkinson contact [facility] and have her admitted. Advised that providers are unable to exercise this kind of authority at healthcare facilities with whom they are not associated. Instructed patient to return to [place] ED via ambulance. Patient verbalizes understanding. Reason for Disposition [1] Chest pain lasts > 5 minutes AND [2] age > 44 Protocols used: Chest Qasc-EUIGO-SK Addendum from 27Dec2024: No confirmation email from [employer] application after multiple attempts. [id number] Miscellaneous Notes* Telephone Encounter - Suman Cadena RN - 12/27/2024 7:34 PM EDT S: [facility] with complaints of high blood pressure and pain. B: Symptoms began two days prior to call. Dr. Wilkinson sent patient to [place] ED two days ago, whotransferred her to [facility]. Patient states they performed a cardiac catheterization and promptly discharged her. A: Patient reporting dizziness, nausea, diaphoresis, dyspnea, severe chest pain radiating to her left shoulder, and hypertension. Per patient, last reading was 156/101 by the staff nurse at [facility] just before discharge. Patient reports the only time she wasn't in pain was when the hospital was giving her narcotics. Denies vomiting, fever, or cough. R: Patient requesting that Dr. Wilkinson contact [facility] and have her admitted. Advised that providers are unable to exercise this kind of authority at healthcare facilities with whom they are not associated. Instructed patient to return to [place] ED via ambulance. Patient verbalizes understanding. Reason for Disposition [1] Chest pain lasts > 5 minutes AND [2] age > 44 Protocols used: Chest Gvay-VWASA-TW Addendum from 27Dec2024: No confirmation email from [employer] application after multiple attempts. documented in this [facility]10-16-2025 Plan of care note* Treatment Plan - ALEXANDRA Watters DNP - 12/27/2024 7:24 PM EDT Patient's ICD was interrogated at [facility] on 12/26/24 with following report: Single Chamber ICD Evaluation: Interrogation shows 12 NSVT episodes since 10/03/24. Stored Egrams show majority of episodes occurring on 12/22/24 showing brief episodes of VHR @176 bpm to 200bpm. Thisis a single lead device difficult to determine if VT vs SVT. Right pectoral pocket/incision w/o s/sx of infection or erosion. Presenting rhthym shows NSR @ 70 bpm. PHYSICAL TESTING SUPERVISOR <0.1%. Estimated battery life3.5 years. Lead impedance, sensing, and pace/sense threshold remain stable. No parameter changes made. Counters cleared. Next f/u appt scheduled for 3 months. [facility] Work Phone: [phone] 148-878410-16-2025 Miscellaneous Notes* Treatment Plan - ALEXANDRA Watters DNP - 12/27/2024 7:24 PM EDT Patient's ICD was interrogated at [facility] on 12/26/24 with following report: Single Chamber ICD Evaluation: Interrogation shows 12 NSVT episodes since 10/03/24. Stored Egrams show majority of episodes occurring on 12/22/24 showing brief episodes of VHR @176 bpm to 200bpm. Thisis a single lead device difficult to determine if VT vs SVT. Right pectoral pocket/incision w/o s/sx of infection or erosion. Presenting rhthym shows NSR @ 70 bpm. PHYSICAL TESTING SUPERVISOR <0.1%. Estimated battery life3.5 years. Lead impedance, sensing, and pace/sense threshold remain stable. No parameter changes made. Counters cleared. Next f/u appt scheduled for 3 months. * Treatment Plan - ALEXANDRA Watters DNP - 12/27/2024 2:20 PM EDT Patient underwent R/LHC via right femoral approach by Dr. Osorio showing normal coronaries, elevated LVeDP of 34 mmHg, moderate to severely reduced LVSF, no intra-ventricular gradient. Patient established with advanced HF provider, Dr. Kay and he is aware of test results. Continue GDMT as ordered. Recommend patient follow up with Dr. Kay within two weeks of discharge. Patient to recover in the dental lab technician and will transfer back to the floor. Communication provided to the hospitalist team. * Post-Procedure Note - Jaxson Osorio MD - 12/27/2024 1:22 PM EDT Physician Transition of Care Summary Invasive Cardiovascular Lab Procedure Date: 12/27/2024 Attending: * Jaxson Osorio - Primary Resident/Fellow/Other Ditching Machine Operator: Surgeons and Role: * No surgeons found with a matching role * Indications: Pre-op Diagnosis * Chest pain, unspecified type [R07.9] Post-procedure diagnosis: Post-op Diagnosis * Chest pain, unspecified type [R07.9] Procedure(s): Left Heart Catheterization with Coronaries and Left Ventriculography [id number] - MD CATH PLMT L HRT & ARTS W/NJX & ANGIO IMG S&I Procedure Findings: Normal coronaries Elevated LVeDP 34mmHg Moderate to severely reduced LV systolic function. No intra-ventricular gradient. Description of the Procedure: Procedure: Left Heart Catheterization R radial artery access with 6F sheath. LV and Ao hemodynamic measurements. S/P Left Heart Catheterization that showed normal coronaries. Elevated LVeDP 34mmHg. Moderate to severely reduced LV systolic function. Patient remained stable during the entire procedure. No complications. Hemostasis with TR Band. Plan: Patient may be discharged home after bed rest for 3 hours. Constant check for bleeding. Maintain compression band (CB) for 60 minutes past procedure. Remove 3mL of air from CB every 15 minutes until fully deflated. If recurrent bleeding occurs, re-inflate with enough air to fully restore hemostasis (2 to 3 mL, maximum of 18 mL). Maintain CB at this same level for 30 minutes before attempting to re-deflate. Once fully deflated, carefully remove CB and place a sterile dressing over access site. Observe for 15 minutes and check for pulse and for signs of bleeding. Instruct patient not to use or bend their wrist for four hours. Cardiology follow up. Would suggest to keep conservative treatment and guideline-directed medical therapy (GDMT). Case has been discussed with HF team - Dr. Kay. She will follow up in HF office. Complications: No Stents/Implants: Implants No implant documentation for this case. Anticoagulation/Antiplatelet Plan: ASA Estimated Blood Loss: * No values recorded between 12/27/2024 1:22 PM and 12/27/2024 1:56 PM * Anesthesia: Moderate Sedation Anesthesia Staff: No anesthesia staff entered. Any Specimen(s) Removed: No specimens collected during this procedure. Disposition: Floor Electronically signed by: Jaxson Osorio MD, 12/27/2024 1:56 PM * Care Plan - Zaida White RN - 12/27/2024 12:48 PM EDT Problem: Pain - Adult Goal: Verbalizes/displays adequate comfort level or baseline comfort level 12/27/2024 1248 by Zaida White RN Outcome: Progressing 12/27/2024 1247 by Zaida White RN Outcome: Progressing Problem: Safety - Adult Goal: Free from fall injury 12/27/2024 1248 by Zaida White RN Outcome: Progressing 12/27/2024 1247 by Zaida White RN Outcome: Progressing Problem: Discharge Planning Goal: Discharge to home or other facility with appropriate resources 12/27/2024 1248 by Zaida White RN Outcome: Progressing 12/27/2024 1247 by Zaida White RN Outcome: Progressing Problem: Chronic Conditions and Co-morbidities Goal: Patient's chronic conditions and co-morbidity symptoms are monitored and maintained or improved 12/27/2024 1248 by Zaida White RN Outcome: Progressing 12/27/2024 1247 by Zaida White RN Outcome: Progressing Problem: Nutrition Goal: Nutrient intake appropriate for maintaining nutritional needs 12/27/2024 1248 by Zaida White RN Outcome: Progressing 12/27/2024 1247 by Zaida White RN Outcome: Progressing Problem: Skin Goal: Decreased wound size/increased tissue granulation at next dressing change 12/27/2024 1248 by Zaida White RN Outcome: Progressing 12/27/2024 1247 by Zaida White RN Outcome: Progressing Goal: Participates in plan/prevention/treatment measures 12/27/2024 1248 by Zaida White RN Outcome: Progressing 12/27/2024 1247 by Zaida White RN Outcome: Progressing Goal: Prevent/manage excess moisture 12/27/2024 1248 by Zaida White RN Outcome: Progressing 12/27/2024 1247 by Zaida White RN Outcome: Progressing Goal: Prevent/minimize sheer/friction injuries 12/27/2024 1248 by Zaida White RN Outcome: Progressing 12/27/2024 1247 by Zaida White RN Outcome: Progressing Goal: Promote/optimize nutrition 12/27/2024 1248 by Zaida White RN Outcome: Progressing 12/27/2024 1247 by Zaida White RN Outcome: Progressing Goal: Promote skin healing 12/27/2024 1248 by Zaida White RN Outcome: Progressing 12/27/2024 1247 by Zaida White RN Outcome: Progressing Problem: Pain Goal: Takes deep breaths with improved pain control throughout the shift Outcome: Progressing Goal: Turns in bed with improved pain control throughout the shift Outcome: Progressing Goal: Walks with improved pain control throughout the shift Outcome: Progressing Goal: Performs ADL's with improved pain control throughout shift Outcome: Progressing Goal: Participates in PT with improved pain control throughout the shift Outcome: Progressing Goal: Free from opioid side effects throughout the shift Outcome: Progressing Goal: Free from acute confusion related to pain meds throughout the shift Outcome: Progressing The patient's goals for the shift include no pain The clinical goals for the shift include NO FALLS no falls, labs and vs wdl, no chest pain * Pre-Sedation Documentation - ALEXANDRA Watters DNP - 12/27/2024 12:17 PM EDT Sedation Plan ASA 4 Mallampati class: I. Risks, benefits, and alternatives discussed with patient. Cosigned by Jaxson Osorio MD at 12/27/2024 1:04 PM EDT * Assessment & Plan Note - Boo Saeed MD - 12/27/2024 12:42 AM EDT Associated Problem(s): Chest pain 44-year-old female with a past medical history of hypertrophic obstructive cardiomyopathy, systoliccongestive heart failure with an ejection fraction of 40% and s/p ICD placement, pericarditis, nicotine dependence, breast cancer at the age of 18 s/p lumpectomy and chemotherapy, ovarian cancer status post oophorectomy, endometrial cancer s/p ablation, 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 In the ER, she was found to have sinus tachycardia. Blood workup showed significantly elevated BNP of 3407 and a mild leukocytosis. I will admit the patient to observation medical service with vital signs and telemetry monitoring. Patient's chest pain etiology is still unclear. Per the patient, sublingual nitro is contraindicated because of her underlying congestive heart failure. So that only leaves me with the option of giving Dilaudid 0.5 mg IV as needed for breakthrough pain. Consult cardiology. I will resume home medications SCDs for DVT prophylaxis Patient is full code * Care Plan - Ana Iglesias RN - 12/26/2024 12:00 AM EDT Problem: Skin Goal: Prevent/minimize sheer/friction injuries Outcome: Progressing Flowsheets (Taken 12/26/2024 0000) Prevent/minimize sheer/friction injuries: Use pull sheet * Care Plan - Ana Iglesias RN - 12/26/2024 12:00 AM EDT Problem: Skin Goal: Prevent/minimize sheer/friction injuries 12/27/2024 0451 by Ana Iglesias RN Outcome: Progressing 12/27/2024 0450 by Ana Iglesias RN Outcome: Progressing Flowsheets (Taken 12/26/2024 0000) Prevent/minimize sheer/friction injuries: Use pull sheet documented in this [facility] Work Phone: 1(765) 723-801010-16-2025 Hospital course Narrative* Eddie Gupta MD - 12/27/2024 4:52 PM EDT Discharge Diagnosis Chest pain Issues Requiring Follow-Up Follow up with PCP Follow up with pain management for her chronic pain Discharge Meds Medication List CONTINUE taking these medications ALPRAZolam 0.5 mg tablet; Commonly known as: Xanax Ambien 10 mg tablet; Generic drug: zolpidem empagliflozin 10 mg tablet; Commonly known as: Jardiance; Take 1 tablet (10 mg) by mouth once daily. furosemide 20 mg tablet; Commonly known as: Lasix metoprolol succinate XL 25 mg 24 hr tablet; Commonly known as: Toprol-XL; Take 1 tablet (25 mg) by mouth once daily. Do not crush or chew. pantoprazole 40 mg EC tablet; Commonly known as: ProtoNix psyllium 3.4 gram packet; Commonly known as: Metamucil spironolactone 25 mg tablet; Commonly known as: Aldactone; Take 1 tablet (25 mg) by mouth once daily. sucralfate 1 gram tablet; Commonly known as: Carafate varenicline tartrate 0.5 mg (11)- 1 mg (42) tablet; Commonly known as: Chantix KENNETH; Use as directed on package instructions, try to quit smoking after 1 week. Ventolin HFA 90 mcg/actuation inhaler; Generic drug: albuterol Test Results Pending At Discharge Pending Labs No current pending labs. Hospital Course Michelle Mitchell is a 44 y.o. female Who presented to the emergency room for chest pain. On presentation, vital signs grossly within normal limits. Pertinent findings on blood workup; WBC 11,100, BNP 3407, and troponin 21. EKG showed sinus tachycardia. CT of the chest showed small bilateral pleural effusion and CT of the abdomen pelvis did not show any acute findings. She received in the emergency room 2 doses of the 1 mg IV Dilaudid as well as Zofran and Compazine. But yet she was still having the pain. Per the patient, she reported that initially she thought that she was having an anxiety attack and she took Xanax with no relief. She also noted that she has not had her pacemaker device checked and reported that she should see her doctor because only 70% of it is working. Her pain has been radiating to the left shoulder. Patient describing the pain as stabbing burning and pressure. Patient admitted to the hospital for observation 23-hour. Cardiology was consulted. She underwent cardiac cath which showed showing normal coronaries, elevated LVeDP of 34 mmHg, moderate to severely reduced LVSF, no intra- ventricular gradient. Patient established with advanced HF provider, Dr. Kay and he is aware of test results. Continue GDMT as ordered. Recommend patient follow up with Dr. Kya within two weeks of discharge. Pertinent Physical Exam At Time of Discharge Physical Exam Constitutional: General: She is not [...] Neurological: General: No focal deficit present. Psychiatric: Comments: anxious Outpatient Follow-Up Future Appointments Date Time Provider Department Center 01/23/2025 2:00 PM Radu Kay MD [id number] [place] Discharge time >30 min Eddie Gupta MD documented in this [facility] Work Phone: [phone] 239-382410-16-2025 History of Present illness Narrative* Asuncion Sosa RN - 12/27/2024 4:15 PM EDT 12/27/24 1612 Discharge Planning Living Arrangements Spouse/significant other Support Systems Spouse/significant other Assistance Needed none Type of Residence Private residence Number of Stairs to Enter Residence 4 Number of Stairs Within Residence 13 Who is requesting discharge planning? Provider Home or Post Acute Services None Expected Discharge Disposition Home Financial Resource Strain How hard is it for you to pay for the very basics like food, housing, medical care, and heating? (Hard to pay heating bills.Gave [employer] and [employer] phone numbers to help out. Can afford medicine,food, housing.) Housing Stability In the last 12 months, was there a time when you were not able to pay the mortgage or rent on time?N At any time in the past 12 months, were you homeless or living in a fdc (including now)? N Transportation Needs In the past 12 months, has lack of transportation kept you from medical appointments or from getting medications? no In the past 12 months, has lack of transportation kept you from meetings, work, or from getting things needed for daily living? No Stroke Family Assessment Stroke Family Assessment Needed No Intensity of Service Intensity of Service 0-30 min TCC reviewed pt. chart and met with patient and at bedside to review plan. Pt answered above questions. Confirmed address/phone. No DME is used. Jaxson Dang is pharmacy. Dr. Wilkinson is pcp. Patients plan is to return home when ready. Patient doesn't feel she will need any HHC at discharge. No care transitions needs noted at this time. Care transitions team to follow. ALAINA WILKINSON, TCC [facility]: [phone] Nurse Note* Jaleesa Ivan RN - 12/27/2024 3:45 PM EDT Patient discharged from dental lab technician holding, taken to room 306 via bed. Bedside report given to Zaida WILKINSON Home going instructions specific to procedure given: Not at this time 1 Easily Arousable; Responding Appropriately: Yes 2. VS +/- 20% of preprocedure status: Yes 3. Significant complications are absent: Yes 4. Ambulates without dizziness/Age appropriate activity: Yes 5. Pulse Ox greater than or equal to 92% or above on room air /ordered oxygen treatment: Yes 6. Care Plan Complete: Yes 7. Discharge education completed and information provided to patient and family: Not at this time 8. If Patient had PCI performed-Stent card sent home with Patient: N/A 9. Follow-up appointment within 2 weeks scheduled: Not at this time [facility] Work Phone: [phone]) 678-917310-16-2025 Nurse Note* Jaleesa Ivan RN - 12/27/2024 3:45 PM EDT Patient discharged from dental lab technician holding, taken to room 306 via bed. Bedside report given to Zaida WILKINSON Home going instructions specific to procedure given: Not at this time 1 Easily Arousable; Responding Appropriately: Yes 2. VS +/- 20% of preprocedure status: Yes 3. Significant complications are absent: Yes 4. Ambulates without dizziness/Age appropriate activity: Yes 5. Pulse Ox greater than or equal to 92% or above on room air /ordered oxygen treatment: Yes 6. Care Plan Complete: Yes 7. Discharge education completed and information provided to patient and family: Not at this time 8. If Patient had PCI performed-Stent card sent home with Patient: N/A 9. Follow-up appointment within 2 weeks scheduled: Not at this time documented in this [facility] Work Phone: [phone] 310-732510-16-2025 Plan of care note* Treatment Plan - ALEXANDRA Watters DNP - 12/27/2024 2:20 PM EDT Patient underwent R/LHC via right femoral approach by Dr. Osorio showing normal coronaries, elevated LVeDP of 34 mmHg, moderate to severely reduced LVSF, no intra-ventricular gradient. Patient established with advanced HF provider, Dr. Kay and he is aware of test results. Continue GDMT as ordered. Recommend patient follow up with Dr. Kay within two weeks of discharge. Patient to recover in the dental lab technician and will transfer back to the floor. Communication provided to the hospitalist team. [facility] Work Phone: [phone] Hospital Discharge instructions* Discharge Instructions* ALEXANDRA Watters DNP - 12/27/2024 2:01 PM EDT Images from the original note were not included. CARDIAC CATHETERIZATION DISCHARGE INSTRUCTIONS FOR SUDDEN AND SEVERE CHEST PAIN, SHORTNESS OF BREATH, EXCESSIVE BLEEDING, SIGNS OF STROKE, OR CHANGES IN MENTAL STATUS YOU SHOULD CALL 911 IMMEDIATELY. If your provider has prescribed aspirin and/or clopidogrel (Plavix), or prasugrel (Effient), or ticagrelor (Brilinta), DO NOT STOP THESE MEDICATIONS for any reason without talking to your operator specialist communications first. If any of these were prescribed, you must take them every day without missing a single dose. If you are getting low on these medications, contact your provider immediately for a refill. FOR NEXT 24 HOURS - Upon discharge, you should return home and rest for the remainder of the day and evening. You do not have to stay on bed rest but should not be very active. It is recommended a responsible adult bewith you for the first 24 hours after the procedure. - No driving for 24 hours after procedure. Please arrange for someone to drive you home from the hospital today. - Do not drive, operate machinery, or use power tools for 24 hours after your procedure. - Do not make any legal decisions for 24 hours after your procedure. - Do not drink alcoholic beverages for 24 hours after your procedure. WOUND CARE *FOR FEMORAL (LEG) ACCESS* Avoid heavy lifting (over 10 pounds) for 7 days, squatting or excessive bending for 2 days, and strenuous exercise for 7 days. No submerged bathing, swimming, or hot tubs for the next 7 days, or until fully healed. Avoid sexual activity for 3-4 days until any groin discomfort has ceased. *FOR RADIAL (WRIST) ACCESS* No lifting more than 5 pounds or excessive use of the wrist for 24 hours - for example, treat your wrist as if it is sprained. Do not engage in vigorous activities (tennis, golf, bowling, weights) for at least 48 hours after the procedure. Do not submerge the wrist for 7 days after the procedure. You should expect mild tingling in your hand and tenderness at the puncture site for up to 3 days. - The transparent dressing should be removed from the site 24 hours after the procedure. Wash the site gently with soap and water. Rinse well and pat dry. Keep the area clean and dry. You may apply aBand-Aid to the site. Avoid lotions, ointments, or powders until fully healed. - You may shower the day after your procedure. - It is normal to notice a small bruise around the puncture site and/or a small grape sized or smaller lump. Any large bruising or large lump warrants a call to the office. - If bleeding should occur, lay down and apply pressure to the affected area for 10 minutes. If thebleeding stops notify your physician. If there is a large amount of bleeding or spurting of blood CALL [address] yourself to the hospital. - You may experience some tenderness, bruising or minimal inflammation. If you have any concerns, you may contact the Core Layer Machine Operator or if any of these symptoms become excessive, contact your operator specialist communications or go to the emergency room. OTHER INSTRUCTIONS - You may take acetaminophen (Tylenol) as directed for discomfort. If pain is not relieved with acetaminophen (Tylenol), contact your doctor. - If you notice or experience any of the following, you should notify your doctor or seek medical attention Chest pain or discomfort Change in mental status or weakness in extremities. Dizziness, light headedness, or feeling faint. Change in the site where the procedure was performed, such as bleeding or an increased area of bruising or swelling. Tingling, numbness, pain, or coolness in the leg/arm beyond the site where the procedure was performed. Signs of infection (i.e. shaking chills, temperature > 100 degrees Fahrenheit, warmth, redness) in the leg/arm area where the procedure was performed. Changes in urination Bloody or black stools Vomiting blood Severe nose bleeds Any excessive bleeding - If you DO NOT have an appointment with your operator specialist communications within 2-4 weeks following your procedure, please contact their office. Lifestyle Recommendations for a Healthier Life: The following lifestyle changes can have a significant positive impact on your overall health - helping you to achieve healthy weight, lower metabolic and heart disease risk and manage stress more effectively: 1. Eat whole, fresh foods. Food is one of the biggest drivers of our overall health. Make your meals whole foods based, focusing on a wide variety of non starchy vegetables and fruits. It also beneficial to include various nuts, seeds and high-quality animal proteins for overall balanced diet. 2. Remove the sweeteners from your diet. Artificial sweeteners have a negative impact on our metabolic health - they can cause increase in both glucose and insulin, increasing the risk or potential for insulin resistance and abnormal blood sugar levels. Artificial sweeteners are also excessively sweeter than regular sugar, they trick our taste buds into craving extreme forms of sweet, like an addiction. I encourage you to avoid sugar, but also stevia, aspartame, sucralose, sugar alcohols like xylitol and maltitol. 3. Get rid of the inflammatory factors in your diet - this mainly comes from sugars of all kinds and refined vegetable oils. These can increase our risk for changes in our metabolic health which can lead to diabetes, heart disease and other chronic disease. You can reverse or combat the effective of inflammatory foods by increasing your intake of anti-inflammatory foods like wild-caught fish, fresh ground flax seed, fish oil and variety of fruits & vegetables. 4. Eat plenty of fiber!! The standard [place] diet has very low levels of daily dietary fiber, many people barely get 15 grams per day. There is plenty of nutrition research that shows how high-fiber foods can help lower our blood sugar. Eat a wide variety of fiber-rich plant-based foods includingnuts, seeds, fruits, vegetables, and legumes. 5. Get enough sleep. Studies from experts in endocrinology & metabolism have shown that even a few nights of poor sleep can increase the risk of insulin resistance and abnormal blood sugar values. Make sleep a priority - it is an important factor in your health. Develop a sleep routine including: avoid eating two-three hours before bed, practice relaxation techniques (warm bath, meditation, yoga, mindfulness) to help relax your muscles and prepare you for sleep. Go to bed and wake up at consistent times. Avoid screen time for at least 60-90 minutes before bedtime. 6. Make exercise part of your regular routine. Exercise helps us manage blood sugar more effectively and makes our cells more receptive to the effect of the insulin our body makes (lowers blood sugar). Regular aerobic exercise AND interval or strength training are ideal to help maintain a healthy weight, metabolism & lower the risk of chronic disease. 7. Control stress levels. Chronic stress can lead to elevated blood sugar, elevated blood pressure,accumulation of fat around the belly and these things increase the risk for metabolic syndrome, diabetes and heart disease. We all have various levels of stress in our lives, we can't control all of it, but we can control how we respond to it and manage it's impact. Find healthy outlets for stress management like meditation, yoga, deep breathing, or exercise. Home BP monitoring instructions: Goal < 130 / 80 Remain still, Avoid smoking, caffeinated beverages, or exercise within 30 min before BP measurements. Ensure 5 min of quiet rest before BP measurements. Sit correctly with back straight and supported (on a straight-backed dining chair, for example, rather than a sofa). Sit with feet flat on the floor and legs uncrossed. Keep arm supported on a flat surface (such as a table), with the upper arm at heart level. Bottom of the cuff should be placed directly above the bend of the elbow Take a reading in the AM before breakfast 2-3 times / week Record all readings accurately: A written log should be brought to all appointments Monitors with built-in memory should be brought to all clinic appointments and calibrated to our machines Weight Management: Since food equals calories, in order to lose weight you must either eat fewer calories, exercise more to burn off calories with activity, or both. Food that is not used to fuel the body is stored as fat. A major component of losing weight is to make smarter food choices. Here's how: Limit non-nutritious foods, such as: Sugar, honey, syrups and candy Pastries, donuts, pies, cakes and cookies Soft drinks, sweetened juices and alcoholic beverages Cut down on high-fat foods by: Choosing poultry, fish or lean red meat Choosing low-fat cooking methods, such as baking, broiling, steaming, grilling and boiling Using low-fat or non-fat dairy products Using vinaigrette, herbs, lemon or fat-free salad dressings Avoiding fatty meats, such as mcclure, sausage, leal, ribs and luncheon meats Avoiding high-fat snacks like nuts, chips and chocolate Avoiding fried foods Using less butter, margarine, oil and mayonnaise Avoiding high-fat gravies, cream sauces and cream-based soups Eat a variety of foods, including: Fruit and vegetables that are raw, steamed or baked Whole grains, breads, cereal, rice and pasta Dairy products, such as low-fat or non-fat milk or yogurt, low-fat cottage cheese and low-fat cheese Protein-rich foods like chicken, turkey, fish, lean meat and legumes, or beans Change your eating habits: Eat three balanced meals a day to help control your hunger Watch portion sizes and eat small servings of a variety of foods Choose low-calorie snacks Eat only when you are hungry and stop when you are satisfied Eat slowly and try not to perform other tasks while eating Find other activities to distract you from food, such as walking, taking up a hobby or being involved in the community Include regular exercise in your daily routine Find a support group, if necessary, for emotional support in your weight loss effort Patient Education: Smoking Cessation Making the commitment to quit smoking is one of the best choices that smokers can make for themselves, but also a difficult one. There are various opportunities for support available. Here is an overview of them. There are various forms of nicotine replacement therapy available to assist with minimizing these symptoms. They are nicotine gum, nicotine patch, nicotine nasal spray, nicotine inhaler, and nicotinelozenge. Which kind of nicotine replacement therapy will best work for you can be discussed with your doctoror nurse to help you understand the pros and cons of each. Non-nicotine replacement therapy is also available. Bupropion (Wellbutrin, Zyban) is a mild anti-depressant that is also effective in helping people to quit smoking. It can be used alone or with nicotine replacement therapy. Varenicline (Chantix) is another medication that helps people who what to quit. This medication is not a form of nicotine replacement therapy, but it helps with the withdrawal symptoms. Studies have shown that the best success rates for people trying to quit include counseling and/or support groups such as the [employer] that is a free, confidential, 04/10, 447-iqh-r-year treatment referral and information service: 1-126-915-HELP (4709) Some helpful hints include: Avoidance. Stay away from smokers and places where you are tempted to smoke. Activities. Exercise or do hobbies that keep your hands busy. Alternatives. Use oral substitutes such as sugarless gum, hard candy, and carrot sticks. Change of habits. For example, if you usually smoke during a coffee break, then go for a walk instead. Deep breathing. When you have the urge to smoke, do a deep breathing exercise and remind yourself why you quit. Delay tactic. If you feel that you are about to light up, delay. Tell yourself you must wait 10 minutes. Often this simple trick will allow you to move beyond the urge Discussion. Call a friend for support. Drink of water. Use as an oral substitute such as water. Many people say the reason they smoke is to deal with stress. Unfortunately, stress is a part of all our lives. When quitting, you will need to find new strategies to deal with stress. There are stress-management classes, and self- help books that can help you discover new ways to reduce and deal with stress. The bottom line is: don't just try to go it alone-reach out for support to help you achieve your goal. * Discharge Instr - Activity* Azul Uriarte RN - 12/27/2024 4:54 PM EDT Follow procedure precautions. * Discharge Instr - Diet* Azul Uriarte RN - 12/27/2024 4:54 PM EDT Diet per normal, recommend low salt, low fat. documented in this [facility] Work Phone: 1(420) 831-247910-16-2025 Surgery Postoperative evaluation and management note* Post-Procedure Note - Jaxson Osorio MD - 12/27/2024 1:22 PM EDT Physician Transition of Care Summary Invasive Cardiovascular Lab Procedure Date: 12/27/2024 Attending: * Jaxson Osorio - Primary Resident/Fellow/Other Ditching Machine Operator: Surgeons and Role: * No surgeons found with a matching role * Indications: Pre-op Diagnosis * Chest pain, unspecified type [R07.9] Post-procedure diagnosis: Post-op Diagnosis * Chest pain, unspecified type [R07.9] Procedure(s): Left Heart Catheterization with Coronaries and Left Ventriculography 29916 - MD CATH PLMT L HRT & ARTS W/NJX & ANGIO IMG S&I Procedure Findings: Normal coronaries Elevated LVeDP 34mmHg Moderate to severely reduced LV systolic function. No intra-ventricular gradient. Description of the Procedure: Procedure: Left Heart Catheterization R radial artery access with 6F sheath. LV and Ao hemodynamic measurements. S/P Left Heart Catheterization that showed normal coronaries. Elevated LVeDP 34mmHg. Moderate to severely reduced LV systolic function. Patient remained stable during the entire procedure. No complications. Hemostasis with TR Band. Plan: Patient may be discharged home after bed rest for 3 hours. Constant check for bleeding. Maintain compression band (CB) for 60 minutes past procedure. Remove 3mL of air from CB every 15 minutes until fully deflated. If recurrent bleeding occurs, re-inflate with enough air to fully restore hemostasis (2 to 3 mL, maximum of 18 mL). Maintain CB at this same level for 30 minutes before attempting to re-deflate. Once fully deflated, carefully remove CB and place a sterile dressing over access site. Observe for 15 minutes and check for pulse and for signs of bleeding. Instruct patient not to use or bend their wrist for four hours. Cardiology follow up. Would suggest to keep conservative treatment and guideline-directed medical therapy (GDMT). Case has been discussed with HF team - Dr. Kay. She will follow up in HF office. Complications: No Stents/Implants: Implants No implant documentation for this case. Anticoagulation/Antiplatelet Plan: ASA Estimated Blood Loss: * No values recorded between 12/27/2024 1:22 PM and 12/27/2024 1:56 PM * Anesthesia: Moderate Sedation Anesthesia Staff: No anesthesia staff entered. Any Specimen(s) Removed: No specimens collected during this procedure. Disposition: Floor Electronically signed by: Jaxson Osorio MD, 12/27/2024 1:56 PM [facility] Work Phone: [phone]) 287-168610-16-2025 Plan of care note* Care Plan - Zaida White RN - 12/27/2024 12:48 PM EDT Problem: Pain - Adult Goal: Verbalizes/displays adequate comfort level or baseline comfort level 12/27/2024 1248 by Zaida White RN Outcome: Progressing 12/27/2024 1247 by Zaida White RN Outcome: Progressing Problem: Safety - Adult Goal: Free from fall injury 12/27/2024 1248 by Zaida White RN Outcome: Progressing 12/27/2024 1247 by Zaida White RN Outcome: Progressing Problem: Discharge Planning Goal: Discharge to home or other facility with appropriate resources 12/27/2024 1248 by Zaida White RN Outcome: Progressing 12/27/2024 1247 by Zaida White RN Outcome: Progressing Problem: Chronic Conditions and Co-morbidities Goal: Patient's chronic conditions and co-morbidity symptoms are monitored and maintained or improved 12/27/2024 1248 by Zaida White RN Outcome: Progressing 12/27/2024 1247 by Zaida White RN Outcome: Progressing Problem: Nutrition Goal: Nutrient intake appropriate for maintaining nutritional needs 12/27/2024 1248 by Zaida White RN Outcome: Progressing 12/27/2024 1247 by Zaida White RN Outcome: Progressing Problem: Skin Goal: Decreased wound size/increased tissue granulation at next dressing change 12/27/2024 1248 by Zaida White RN Outcome: Progressing 12/27/2024 1247 by Zaida White RN Outcome: Progressing Goal: Participates in plan/prevention/treatment measures 12/27/2024 1248 by Zaida White RN Outcome: Progressing 12/27/2024 1247 by Zaida White RN Outcome: Progressing Goal: Prevent/manage excess moisture 12/27/2024 1248 by Zaida White RN Outcome: Progressing 12/27/2024 1247 by Zaida White RN Outcome: Progressing Goal: Prevent/minimize sheer/friction injuries 12/27/2024 1248 by Zaida White RN Outcome: Progressing 12/27/2024 1247 by Zaida White RN Outcome: Progressing Goal: Promote/optimize nutrition 12/27/2024 1248 by Zaida White RN Outcome: Progressing 12/27/2024 1247 by Zaida White RN Outcome: Progressing Goal: Promote skin healing 12/27/2024 1248 by Zaida White RN Outcome: Progressing 12/27/2024 1247 by Zaida White RN Outcome: Progressing Problem: Pain Goal: Takes deep breaths with improved pain control throughout the shift Outcome: Progressing Goal: Turns in bed with improved pain control throughout the shift Outcome: Progressing Goal: Walks with improved pain control throughout the shift Outcome: Progressing Goal: Performs ADL's with improved pain control throughout shift Outcome: Progressing Goal: Participates in PT with improved pain control throughout the shift Outcome: Progressing Goal: Free from opioid side effects throughout the shift Outcome: Progressing Goal: Free from acute confusion related to pain meds throughout the shift Outcome: Progressing The patient's goals for the shift include no pain The clinical goals for the shift include NO FALLS no falls, labs and vs wdl, no chest pain [facility] Work Phone: [phone] 444-716510-16-2025 Nurse procedure note* Pre-Sedation Documentation - ALEXANDRA Watters DNP - 12/27/2024 12:17 PM EDT Sedation Plan ASA 4 Mallampati class: I. Risks, benefits, and alternatives discussed with patient. Cosigned by Jaxson Osorio MD at 12/27/2024 1:04 PM EDT [facility] Work Phone: [phone] 179-496810-16-2025 Attending History and physical note* ALEXANDRA Watters DNP - 12/27/2024 12:17 PM EDT H&P reviewed. The patient was examined and there are no changes to the H&P. Source Note - Jaxson Osorio MD - 12/27/2024 11:24 AM EDT Inpatient consult to Cardiology Consult performed by: Jaxson Osorio MD Consult ordered by: Boo Saeed MD History Of Present Illness: Mrs. Michelle Mitchell [...] GERD, leg abscess, migraine. She presented to [facility] ([place]) on 12/26/2024 complaining of chest pain. She wasthen transferred to [facility] on 12/26/2024 per her request. She follows up with our teama meaghan Lindsey - Dr. Kay. Has indication for heart transplant in the future. The patient stated that at first, she believed she was experiencing an anxiety attack and took Xanax, but it did not provide any relief. She also mentioned that her pacemaker has not been checked recently and believes she needs to see her doctor, as she was told it is only functioning at 70%. She described the pain as radiating to her left shoulder and characterized it as stabbing, burning, and pressure-like. She denied lightheadedness, headaches, fever, chills, bleeding, orthopnea, paroxysmal [...] the liver. Trop 48 - 49. BNP 1895 (previously > 4,700). EKG showed tachycardic sinus rhythm with incomplete RBBB and no signs of acute ischemic changes. She has been admitted for clinical compensation. Last Recorded Vitals: Vitals: 12/26/24 2358 12/27/24 0400 12/27/24 0700 12/27/24 0815 BP: 123/80 117/79 116/73 BP Location: Right arm Right arm Right arm Patient Position: Sitting Lying Lying Pulse: 80 91 89 Resp: 22 18 20 Temp: 36.3 C (97.3 F) 36.3 C (97.3 F) 35.8 C (96.4 F) TempSrc: Temporal Temporal Temporal SpO2: 99% 99% 95% 96% Weight: 58.1 kg (128 lb) Height: 1.626 m (5' 4") Last Labs: CBC - 09/23/2024: 6:01 AM [...] Final BNP Date/Time Value Ref Range Status 12/27/2024 09:22 AM 1,895 (H) 0 - 99 pg/mL Final 09/21/2024 12:05 AM >4,700 (H) 0 - 99 pg/mL Final Hemoglobin A1C Date/Time Value Ref Range Status 07/25/2024 06:53 AM 5.5 4.3 - 5.6 % Final Comment: [place] [employer] guidelines indicate that patients with HgbA1c in the range 5.7-6.4% are at increased risk for development of diabetes, and intervention by lifestyle modification may be beneficial. HgbA1c greater or equal to 6.5% is considered diagnostic of diabetes. 04/25/2021 08:44 AM 5.2 4.3 - 5.6 % Final Comment: [place] [employer] guidelines indicate that patients with HgbA1c in the range 5.7-6.4% are at increased risk for development of diabetes, and intervention by lifestyle modification may be beneficial. HgbA1c greater or equal to 6.5% is considered diagnostic of diabetes. Last I/O: No intake/output data recorded. Past Cardiology Tests (Last 3 Years): EKG: ECG 12 lead ECG 12 lead 08/23/2024 Echo: Transthoracic Echo Complete 09/21/2024 Ejection Fractions: EF Date/Time Value Ref Range Status 09/21/2024 11:08 AM 40 % Cath: No results found for this or [...] cigarettes. She has never used smokeless tobacco. She reportsthat she does not drink alcohol. No history on file for drug use. Family History: Family History[1] Allergies: [place], Shellfish derived, Tigan [trimethobenzamide], Vicodin [hydrocodone- acetaminophen], Azithromycin, Levofloxacin, Morphine, Prozac [fluoxetine], Ultram [tramadol], and Codeine Inpatient Medications: Scheduled Medications[2] PRN Medications[3] Continuous Medications[4] Outpatient Medications: Current Outpatient Medications Medication Instructions albuterol (Ventolin HFA) 90 mcg/actuation inhaler 2 puffs, Every 6 hours PRN ALPRAZolam (XANAX) 0.5 mg, 2 times daily empagliflozin (JARDIANCE) 10 mg, oral, Daily furosemide (LASIX) 20 mg, oral, Daily PRN metoprolol succinate XL (TOPROL-XL) 25 mg, oral, Daily, Do not crush or chew. pantoprazole (PROTONIX) 40 mg, 2 times daily psyllium (Metamucil) 3.4 gram packet 1 packet, oral, Daily PRN spironolactone (ALDACTONE) 25 mg, oral, Daily sucralfate (CARAFATE) 1 g, 2 times daily varenicline tartrate (Chantix KENNETH) 0.5 mg (11)- 1 mg (42) tablet Use as directed on package instructions, try to quit smoking after 1 week. zolpidem (AMBIEN) 10 mg, Nightly PRN Physical [...] GERD, leg abscess, migraine. She presented to [facility] ([place]) on 12/26/2024 complaining of chest pain. She wasthen transferred to [facility] on 12/26/2024 per her request. She follows up with our teama meaghan Lindsey - Dr. Kay. Has indication for heart transplant in the future. The patient stated that at first, she believed she was experiencing an anxiety attack and took Xanax, but it did not provide any relief. She also mentioned that her pacemaker has not been checked recently and believes she needs to see her doctor, as she was told it is only functioning at 70%. She described the pain as radiating to her left shoulder and characterized it as stabbing, burning, and pressure-like. She denied lightheadedness, headaches, fever, chills, bleeding, orthopnea, paroxysmal [...] the liver. Trop 48 - 49. BNP 1895 (previously > 4,700). EKG showed tachycardic sinus rhythm with incomplete RBBB and no signs of acute ischemic changes. She has been admitted for clinical compensation. Assessment # Chest pain / Hypertrophic obstructive cardiomyopathy / Heart Failure AHA/ACC stage C with recovered LVEF 35% --> 55% --> 40% / NYHA Classification III - BNP 1,895 (previously > 4,700) - Trop 21 - 49 - 48. - Patient looks "warm and dry". - EKG showed tachycardic sinus rhythm with incomplete RBBB and no [...] the prior echocardiographic exam performed on 04/25/2021 ([facility]). Mobile echodensity reported today as above. MICKI may better assesss. - Echo (09/21/2024): 1. The left ventricular systolic function is moderately decreased with a Vann's biplane calculated ejection fraction of 40%. 2. There is global hypokinesis of the left ventricle with minor regional variations. 3. There is mildly reduced right ventricular systolic function. 4. Mild to moderate tricuspid regurgitation. 5. The Doppler estimated RVSP is severely elevated at 69 mmHg. - Keep daily weights. Patient's admission weight is 130 lb. - Low sodium diet (2g). - 1500mL fluid restriction. - Strict I&Os. - Electrolyte control and daily BMP including magnesium. - General recommendations for heart failure, including low-sodium diet, fluid restriction, daily weight and adherence to medication. - Due to chest pain and new reduction LVEF, we will request Right and Left Heart Catheterization. - The natural history of atherosclerosis was discussed with the patient. The treatment options including GDMT, percutaneous intervention or surgical intervention were discussed with the patient. All the risks, benefits and alternative procedures were discussed. Complications of the procedure were also discussed, including but not limited to risk of bleeding, stroke, infarct, infection, urgent cardiac surgery or . All questions were answered and the informed consent was obtained. After aforementioned testing and consultation, Left Heart Catheterization with potential Percutaneous CoronaryIntervention would be a reasonable approach if the patient is candidate. - Please keep NPO. - Keep Furosemide 40mg PO daily. - Keep Metoprolol succinate 25mg daily. - Keep Spironolactone 25mg daily. - Keep empagliflozin 10mg daily. - Please refer the patient to Cardiology Clinic and HF clinic (Dr. Kay) upon discharge. # S/P ICD placement - [...] need any clarifications regarding the patient's care. Code Status: Full Code Jaxson Osroio MD Cardiology [1] No family history on file. [2] Scheduled medications Medication Dose Route Frequency ALPRAZolam 0.5 mg oral BID aspirin 324 mg oral Once empagliflozin 10 mg oral Daily furosemide 20 mg oral Daily metoprolol succinate XL 25 mg oral Daily spironolactone 25 mg oral Daily sucralfate 1 g oral BID [3] PRN medications Medication acetaminophen Or acetaminophen Or acetaminophen albuterol HYDROmorphone ketorolac magnesium hydroxide nitroglycerin ondansetron ODT Or ondansetron zolpidem [4] Continuous Medications Medication Dose Last Rate [facility] Work Phone: [phone]) 174-803510-16-2025 History and physical note* ALEXANDRA Watters DNP - 12/27/2024 12:17 PM EDT H&P reviewed. The patient was examined and there are no changes to the H&P. Source Note - Jaxson Osorio MD - 12/27/2024 11:24 AM EDT Inpatient consult to Cardiology Consult performed by: Jaxson Osorio MD Consult ordered by: Boo Saeed MD History Of Present Illness: Mrs. Michelle Mitchell [...] GERD, leg abscess, migraine. She presented to [facility] ([place]) on 12/26/2024 complaining of chest pain. She wasthen transferred to [facility] on 12/26/2024 per her request. She follows up with our teama meaghan Lindsey - Dr. Kay. Has indication for heart transplant in the future. The patient stated that at first, she believed she was experiencing an anxiety attack and took Xanax, but it did not provide any relief. She also mentioned that her pacemaker has not been checked recently and believes she needs to see her doctor, as she was told it is only functioning at 70%. She described the pain as radiating to her left shoulder and characterized it as stabbing, burning, and pressure-like. She denied lightheadedness, headaches, fever, chills, bleeding, orthopnea, paroxysmal [...] the liver. Trop 48 - 49. BNP 1895 (previously > 4,700). EKG showed tachycardic sinus rhythm with incomplete RBBB and no signs of acute ischemic changes. She has been admitted for clinical compensation. Last Recorded Vitals: Vitals: 12/26/24 2358 12/27/24 0400 12/27/24 0700 12/27/24 0815 BP: 123/80 117/79 116/73 BP Location: Right arm Right arm Right arm Patient Position: Sitting Lying Lying Pulse: 80 91 89 Resp: 22 18 20 Temp: 36.3 C (97.3 F) 36.3 C (97.3 F) 35.8 C (96.4 F) TempSrc: Temporal Temporal Temporal SpO2: 99% 99% 95% 96% Weight: 58.1 kg (128 lb) Height: 1.626 m (5' 4") Last Labs: CBC - 09/23/2024: 6:01 AM [...] Final BNP Date/Time Value Ref Range Status 12/27/2024 09:22 AM 1,895 (H) 0 - 99 pg/mL Final 09/21/2024 12:05 AM >4,700 (H) 0 - 99 pg/mL Final Hemoglobin A1C Date/Time Value Ref Range Status 07/25/2024 06:53 AM 5.5 4.3 - 5.6 % Final Comment: [place] [employer] guidelines indicate that patients with HgbA1c in the range 5.7-6.4% are at increased risk for development of diabetes, and intervention by lifestyle modification may be beneficial. HgbA1c greater or equal to 6.5% is considered diagnostic of diabetes. 04/25/2021 08:44 AM 5.2 4.3 - 5.6 % Final Comment: [place] [employer] guidelines indicate that patients with HgbA1c in the range 5.7-6.4% are at increased risk for development of diabetes, and intervention by lifestyle modification may be beneficial. HgbA1c greater or equal to 6.5% is considered diagnostic of diabetes. Last I/O: No intake/output data recorded. Past Cardiology Tests (Last 3 Years): EKG: ECG 12 lead ECG 12 lead 08/23/2024 Echo: Transthoracic Echo Complete 09/21/2024 Ejection Fractions: EF Date/Time Value Ref Range Status 09/21/2024 11:08 AM 40 % Cath: No results found for this or [...] cigarettes. She has never used smokeless tobacco. She reportsthat she does not drink alcohol. No history on file for drug use. Family History: Family History[1] Allergies: [place], Shellfish derived, Tigan [trimethobenzamide], Vicodin [hydrocodone- acetaminophen], Azithromycin, Levofloxacin, Morphine, Prozac [fluoxetine], Ultram [tramadol], and Codeine Inpatient Medications: Scheduled Medications[2] PRN Medications[3] Continuous Medications[4] Outpatient Medications: Current Outpatient Medications Medication Instructions albuterol (Ventolin HFA) 90 mcg/actuation inhaler 2 puffs, Every 6 hours PRN ALPRAZolam (XANAX) 0.5 mg, 2 times daily empagliflozin (JARDIANCE) 10 mg, oral, Daily furosemide (LASIX) 20 mg, oral, Daily PRN metoprolol succinate XL (TOPROL-XL) 25 mg, oral, Daily, Do not crush or chew. pantoprazole (PROTONIX) 40 mg, 2 times daily psyllium (Metamucil) 3.4 gram packet 1 packet, oral, Daily PRN spironolactone (ALDACTONE) 25 mg, oral, Daily sucralfate (CARAFATE) 1 g, 2 times daily varenicline tartrate (Chantix KENNETH) 0.5 mg (11)- 1 mg (42) tablet Use as directed on package instructions, try to quit smoking after 1 week. zolpidem (AMBIEN) 10 mg, Nightly PRN Physical [...] GERD, leg abscess, migraine. She presented to [facility] ([place]) on 12/26/2024 complaining of chest pain. She wasthen transferred to [facility] on 12/26/2024 per her request. She follows up with our teama meaghan Lindsey - Dr. Kay. Has indication for heart transplant in the future. The patient stated that at first, she believed she was experiencing an anxiety attack and took Xanax, but it did not provide any relief. She also mentioned that her pacemaker has not been checked recently and believes she needs to see her doctor, as she was told it is only functioning at 70%. She described the pain as radiating to her left shoulder and characterized it as stabbing, burning, and pressure-like. She denied lightheadedness, headaches, fever, chills, bleeding, orthopnea, paroxysmal [...] the liver. Trop 48 - 49. BNP 1895 (previously > 4,700). EKG showed tachycardic sinus rhythm with incomplete RBBB and no signs of acute ischemic changes. She has been admitted for clinical compensation. Assessment # Chest pain / Hypertrophic obstructive cardiomyopathy / Heart Failure AHA/ACC stage C with recovered LVEF 35% --> 55% --> 40% / NYHA Classification III - BNP 1,895 (previously > 4,700) - Trop 21 - 49 - 48. - Patient looks "warm and dry". - EKG showed tachycardic sinus rhythm with incomplete RBBB and no [...] the prior echocardiographic exam performed on 04/25/2021 ([facility]). Mobile echodensity reported today as above. MICKI may better assesss. - Echo (09/21/2024): 1. The left ventricular systolic function is moderately decreased with a Vann's biplane calculated ejection fraction of 40%. 2. There is global hypokinesis of the left ventricle with minor regional variations. 3. There is mildly reduced right ventricular systolic function. 4. Mild to moderate tricuspid regurgitation. 5. The Doppler estimated RVSP is severely elevated at 69 mmHg. - Keep daily weights. Patient's admission weight is 130 lb. - Low sodium diet (2g). - 1500mL fluid restriction. - Strict I&Os. - Electrolyte control and daily BMP including magnesium. - General recommendations for heart failure, including low-sodium diet, fluid restriction, daily weight and adherence to medication. - Due to chest pain and new reduction LVEF, we will request Right and Left Heart Catheterization. - The natural history of atherosclerosis was discussed with the patient. The treatment options including GDMT, percutaneous intervention or surgical intervention were discussed with the patient. All the risks, benefits and alternative procedures were discussed. Complications of the procedure were also discussed, including but not limited to risk of bleeding, stroke, infarct, infection, urgent cardiac surgery or . All questions were answered and the informed consent was obtained. After aforementioned testing and consultation, Left Heart Catheterization with potential Percutaneous CoronaryIntervention would be a reasonable approach if the patient is candidate. - Please keep NPO. - Keep Furosemide 40mg PO daily. - Keep Metoprolol succinate 25mg daily. - Keep Spironolactone 25mg daily. - Keep empagliflozin 10mg daily. - Please refer the patient to Cardiology Clinic and HF clinic (Dr. Kay) upon discharge. # S/P ICD placement - [...] need any clarifications regarding the patient's care. Code Status: Full Code Jaxson Osorio MD Cardiology [1] No family history on file. [2] Scheduled medications Medication Dose Route Frequency ALPRAZolam 0.5 mg oral BID aspirin 324 mg oral Once empagliflozin 10 mg oral Daily furosemide 20 mg oral Daily metoprolol succinate XL 25 mg oral Daily spironolactone 25 mg oral Daily sucralfate 1 g oral BID [3] PRN medications Medication acetaminophen Or acetaminophen Or acetaminophen albuterol HYDROmorphone ketorolac magnesium hydroxide nitroglycerin ondansetron ODT Or ondansetron zolpidem [4] Continuous Medications Medication Dose Last Rate * Boo Saeed MD - 12/27/2024 12:33 AM EDT History Of Present Illness Michelle Mitchell is a 44 y.o. female Who presented to the emergency room for chest pain. On presentation, vital signs grossly within normal limits. Pertinent findings on blood workup; WBC 11,100, BNP 3407, and troponin 21. EKG showed sinus tachycardia. CT of the chest showed small bilateral pleural effusion and CT of the abdomen pelvis did not show any acute findings. She received in the emergency room 2 doses of the 1 mg IV Dilaudid as well as Zofran and Compazine. But yet she was still having the pain. Per the patient, she reported that initially she thought that she was having an anxiety attack and she took Xanax with no relief. She also noted that she has not had her pacemaker device checked and reported that she should see her doctor because only 70% of it is working. Her pain has been radiating to the left shoulder. Patient describing the pain as stabbing burning and pressure. ROS 10 systems were reviewed and were negative except for those noted in the history of present illness. Past Medical History Medical History[1] Pertinent medical history also documented in my below narrative Surgical History Surgical History[2] Pertinent surgical history also documented in my below narrative Social History She reports that she has been smoking cigarettes. She has never used smokeless tobacco. She reportsthat she does not drink alcohol. No history on file for drug use. Family History Family History[3] Medications Current Outpatient Medications Medication Instructions albuterol (Ventolin HFA) 90 mcg/actuation inhaler 2 puffs, Every 6 hours PRN ALPRAZolam (XANAX) 0.5 mg, 2 times daily buprenorphine (Butrans) 15 mcg/hour patch 1 patch, Once Weekly empagliflozin (JARDIANCE) 10 mg, oral, Daily furosemide (LASIX) 20 mg, Daily hyoscyamine (ANASPAZ, LEVSIN) 0.125 mg metoprolol succinate XL (TOPROL-XL) 25 mg, oral, Daily, Do not crush or chew. pantoprazole (PROTONIX) 40 mg, Daily before breakfast psyllium (Metamucil) 3.4 gram packet 1 packet, Daily spironolactone (ALDACTONE) 25 mg, oral, Daily sucralfate (CARAFATE) 1 g, 2 times daily varenicline tartrate (Chantix KENNETH) 0.5 mg (11)- 1 mg (42) tablet Use as directed on package instructions, try to quit smoking after 1 week. zolpidem (AMBIEN) 10 mg, Nightly PRN Allergies [place], Shellfish derived, Tigan [trimethobenzamide], Vicodin [hydrocodone- acetaminophen], Azithromycin, Levofloxacin, Morphine, Prozac [fluoxetine], Ultram [tramadol], and Codeine Last Recorded Vitals Blood pressure 123/80, pulse 80, temperature 36.3 C (97.3 F), temperature source Temporal, resp. rate 22, height 1.626 m (5' 4"), weight 58.1 kg (128 lb), SpO2 99%. Physical Exam Constitutional: General: She is not [...] Neurological: General: No focal deficit present. Psychiatric: Comments: Depressed and anxious Relevant Results No results found for this or any previous visit (from the past [address] angio abdomen pelvis w and or wo IV IV contrast Result Date: 12/26/2024 IMPRESSION: 1. No evidence of a dissection or aneurysm the chest abdomen or pelvis 2. Small bilateral pleural effusions 3. Small amount of fluid within the fissures bilaterally 4. Subpleural reticular changes noted as discussed 5. LEFT atrium is again noted to be enlarged 6. No acute findings in the abdomen or pelvis 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: [facility] Transcribe Date/Time: Dec 26 2024 4:50P Dictated by : BILL ORNELAS DO This examination was interpreted and the report reviewed and electronically signed by: BILL ORNELAS DO on Dec 26 2024 5:09PM EST CT angio chest w and wo IV contrast Result Date: 12/26/2024 IMPRESSION: 1. No evidence of a dissection or aneurysm the chest abdomen or pelvis 2. Small bilateral pleural effusions 3. Small amount of fluid within the fissures bilaterally 4. Subpleural reticular changes noted as discussed 5. LEFT atrium is again noted to be enlarged 6. No acute findings in the abdomen or pelvis 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: [facility] Transcribe Date/Time: Dec 26 2024 4:50P Dictated by : BILL ORNELAS DO This examination was interpreted and the report reviewed and electronically signed by: BILL ONRELAS DO on Dec 26 2024 5:09PM EST Cardiology, Vascular, and Other Imaging CT angio abdomen pelvis w and or wo IV IV contrast Result Date: 12/26/2024 * * *Final Report* * * DATE OF [place]AM: Dec 26 2024 4:29PM [facility] [place]/PELV W IVCON / PROCEDURE REASON: Aortic dissection suspected * * * * Physician Interpretation * * * * EXAMINATION: CTA CHEST WITHOUT AND WITH CONTRAST, WITH 3-D RECONSTRUCTIONS CTA ABDOMEN AND PELVIS WITH CONTRAST, WITH 3- D RECONSTRUCTIONSWith MIP's 12/26/2024 4:29 PM HISTORY: Aortic dissection suspected Chest Pain; Shoulder Pain while allowing for TECHNIQUE: Spiral CT acquisition of the chest priorto, then through the chest, abdomen and pelvis following bolus infusion of IV iodinated contrast.MIP reconstructions were performed and provided for interpretation. Contrast: IV: 100 mL of Omnipaque 350 Oral: None. CT Radiation dose: Integrated Dose-length product (DLP) for this visit = 1052 mGy*cm. CT Dose Reduction Employed: Automated exposure control(AEC) and iterative recon COMPARISON: None. RESULT: Vasculature: No aneurysm, pseudoaneurysm, dissection, or hemodynamically significant stenosis. The LEFT atrium is again noted be moderately enlarged Chest: Lines, Tubes, and Devices: N/A Lungsand Pleura: Central airways are patent. No suspicious pulmonary nodules. No consolidations. . No pneumothorax. Subpleural reticular changes are noted may relate to some interstitial lung disease. * There is fluid in the fissures RIGHT major fissure more than the others. However is decreased in amoun t since the previous study * There are bilateral pleural effusions LEFT side slightly larger than RIGHT. Right-sided decrease since previous study in the LEFT side has slightly increased. Cardiomediastinal structures: Within normal limits. Neck base: Within normal limits. Thoracic lymph nodes: No ly mphadenopathy. Bones and Soft tissues: Vertebral hemangioma is noted at the T8 level vertebral hemangioma CT No acute fracture or destructive osseous lesion. Abdomen and pelvis: Liver: No mass. Normal morphology. Biliary: No bile duct dilation. Previous cholecystectomy Spleen: No mass. No splenomegaly. Pancreas: Not well seen in the absence of oral contrast Adrenals: No mass. Kidneys: Normal appearance. Bladder is unremarkable. GI tract: No dilation or wall thickening. Lymph nodes: No abdominalor pelvic lymphadenopathy. Mesentery/Peritoneum: No free air or fluid collection. Retroperitoneum: No mass or hematoma. Pelvis: No masses identified. Bones/Soft Tissues: No acute fracture or destructive osseous lesion. - - IMPRESSION: 1. No evidence of a dissection or aneurysm the chest abdomen or pelvis 2. Small bilateral pleural effusions 3. Small amount of fluid within the fissures bilaterally 4. Subpleural reticular changes noted as discussed 5. LEFT atrium is again noted to be enlarged 6. No acute findings in the abdomen or pelvis 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: [facility] Transcribe Date/Time: Dec 26 2024 4:50P Dictated by : BILL ORNELAS DO This examination was interpreted and the report reviewed and electronically signed by: BILL ORNELAS DO on Dec 26 2024 5:09PM EST CT angio chest w and wo IV contrast Result Date: 12/26/2024 * * *Final Report* * * DATE OF EXAM: Dec 26 2024 4:29PM [facility] [place] [place] CTA CHEST (GATED) WO/W IVCON / PROCEDURE REASON: Aortic dissection suspected * * * * Physician Interpretation * * * * EXAMINATION: CTA CHEST WITHOUT AND WITH CONTRAST, WITH 3-D RECONSTRUCTIONS CTA ABDOMEN AND PELVIS WITH CONTRAST, WITH 3-D RECONSTRUCTIONSWith MIP's 12/26/2024 4:29 PM HISTORY: Aortic dissection suspected Chest Pain; Shoulder Pain while allowing for TECHNIQUE: Spiral CT acquisition of the chest prior to, then through the chest, abdomen and pelvis following bolus infusion of IV iodinated contrast.MIP reconstructions were performed and provided for interpretation. Contrast: IV: 100 mL of Omn ipaque 350 Oral: None. CT Radiation dose: Integrated Dose-length product (DLP) for this visit = 1052 mGy*cm. CT Dose Reduction Employed: Automated exposure control(AEC) and iterative recon COMPARISON: None. RESULT: Vasculature: No aneurysm, pseudoaneurysm, dissection, or hemodynamically significantstenosis. The LEFT atrium is again noted be moderately enlarged Chest: Lines, Tubes, and Devices: N/A Lungs and Pleura: Central airways are patent. No suspicious pulmonary nodules. No consolidations.. No pneumothorax. Subpleural reticular changes are noted may relate to some interstitial lung disease. * There is fluid in the fissures RIGHT major fissure more than the others. However is decreased in amount since the previous study * There are bilateral pleural effusions LEFT side slightly larger than RIGHT. Right-sided decrease since previous study in the LEFT side has slightly increased. Cardiomediastinal structures: Within normal limits. Neck base: Within normal limits. Thoracic lymph nodes: No lymphadenopathy. Bones and Soft tissues: Vertebral hemangioma is noted at the T8 level vertebral hemangioma CT No acute fracture or destructive osseous lesion. Abdomen and pelvis: Liver: No mass. Normal morphology. Biliary: No bile duct dilation. Previous cholecystectomy Spleen: No mass. No splenomegaly. Pancreas: Not well seen in the absence of oral contrast Adrenals: No mass. Kidneys: Normal appearance. Bladder is unremarkable. GI tract: No dilation or wall thickening. Lymph nodes: No abdominal or pelvic lymphadenopathy. Mesentery/Peritoneum: No free air or fluid collection. Retroperitoneum: No mass or hematoma. Pelvis: No masses identified. Bones/Soft Tissues: No acute fracture or destructive osseous lesion. - - IMPRESSION: 1. No evidence of a dissection or aneurysm the chest abdomen or pelvis 2. Small bilateral pleural effusions 3. Small amount of fluid within the fissures bilaterally 4. Subpleural reticular changes noted as discussed 5. LEFT atrium is again noted to be enlarged 6. No acute findings in the abdomen or pelvis 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: [facility] Transcribe Date/Time: Dec 26 2024 4:50P Dictated by : BILL ORNELAS DO This examination was interpreted and the report reviewed and electronically signed by: BILL ORNELAS DO on Dec 26 2024 5:09PM EST Assessment & Plan Chest pain 44-year-old female with a past medical history of hypertrophic obstructive cardiomyopathy, systoliccongestive heart failure with an ejection fraction of 40% and s/p ICD placement, pericarditis, nicotine dependence, breast cancer at the age of 18 s/p lumpectomy and chemotherapy, ovarian cancer status post oophorectomy, endometrial cancer s/p ablation, 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 In the ER, she was found to have sinus tachycardia. Blood workup showed significantly elevated BNP of 3407 and a mild leukocytosis. I will admit the patient to observation medical service with vital signs and telemetry monitoring. Patient's chest pain etiology is still unclear. Per the patient, sublingual nitro is contraindicated because of her underlying congestive heart failure. So that only leaves me with the option of giving Dilaudid 0.5 mg IV as needed for breakthrough pain. Consult cardiology. I will resume home medications SCDs for DVT prophylaxis Patient is full code (This note was generated with voice recognition software and may contain errors including spelling,grammar, syntax and misrecognition of what was dictated, that are not fully corrected) Boo Saeed MD [1] No past medical history on file. [2] No past surgical history on file. [3] No family history on file. documented in this [facility] Work Phone: [phone]) 238-456410-16-2025 Consult note* Jaxson Osorio MD - 12/27/2024 11:24 AM EDTAssociated Order(s): Inpatient consult to Cardiology Inpatient consult to Cardiology Consult performed by: Jaxson Osorio MD Consult ordered by: Boo Saeed MD History Of Present Illness: Mrs. Michelle Mitchell [...] GERD, leg abscess, migraine. She presented to [facility] ([place]) on 12/26/2024 complaining of chest pain. She wasthen transferred to [facility] on 12/26/2024 per her request. She follows up with our teama meaghan Lindsey - Dr. Kay. Has indication for heart transplant in the future. The patient stated that at first, she believed she was experiencing an anxiety attack and took Xanax, but it did not provide any relief. She also mentioned that her pacemaker has not been checked recently and believes she needs to see her doctor, as she was told it is only functioning at 70%. She described the pain as radiating to her left shoulder and characterized it as stabbing, burning, and pressure-like. She denied lightheadedness, headaches, fever, chills, bleeding, orthopnea, paroxysmal [...] the liver. Trop 48 - 49. BNP 1895 (previously > 4,700). EKG showed tachycardic sinus rhythm with incomplete RBBB and no signs of acute ischemic changes. She has been admitted for clinical compensation. Last Recorded Vitals: Vitals: 12/26/24 2358 12/27/24 0400 12/27/24 0700 12/27/24 0815 BP: 123/80 117/79 116/73 BP Location: Right arm Right arm Right arm Patient Position: Sitting Lying Lying Pulse: 80 91 89 Resp: 22 18 20 Temp: 36.3 C (97.3 F) 36.3 C (97.3 F) 35.8 C (96.4 F) TempSrc: Temporal Temporal Temporal SpO2: 99% 99% 95% 96% Weight: 58.1 kg (128 lb) Height: 1.626 m (5' 4") Last Labs: CBC - 09/23/2024: 6:01 AM [...] Final BNP Date/Time Value Ref Range Status 12/27/2024 09:22 AM 1,895 (H) 0 - 99 pg/mL Final 09/21/2024 12:05 AM >4,700 (H) 0 - 99 pg/mL Final Hemoglobin A1C Date/Time Value Ref Range Status 07/25/2024 06:53 AM 5.5 4.3 - 5.6 % Final Comment: [place] [employer] guidelines indicate that patients with HgbA1c in the range 5.7-6.4% are at increased risk for development of diabetes, and intervention by lifestyle modification may be beneficial. HgbA1c greater or equal to 6.5% is considered diagnostic of diabetes. 04/25/2021 08:44 AM 5.2 4.3 - 5.6 % Final Comment: [place] [employer] guidelines indicate that patients with HgbA1c in the range 5.7-6.4% are at increased risk for development of diabetes, and intervention by lifestyle modification may be beneficial. HgbA1c greater or equal to 6.5% is considered diagnostic of diabetes. Last I/O: No intake/output data recorded. Past Cardiology Tests (Last 3 Years): EKG: ECG 12 lead ECG 12 lead 08/23/2024 Echo: Transthoracic Echo Complete 09/21/2024 Ejection Fractions: EF Date/Time Value Ref Range Status 09/21/2024 11:08 AM 40 % Cath: No results found for this or [...] cigarettes. She has never used smokeless tobacco. She reportsthat she does not drink alcohol. No history on file for drug use. Family History: Family History[1] Allergies: [place], Shellfish derived, Tigan [trimethobenzamide], Vicodin [hydrocodone- acetaminophen], Azithromycin, Levofloxacin, Morphine, Prozac [fluoxetine], Ultram [tramadol], and Codeine Inpatient Medications: Scheduled Medications[2] PRN Medications[3] Continuous Medications[4] Outpatient Medications: Current Outpatient Medications Medication Instructions albuterol (Ventolin HFA) 90 mcg/actuation inhaler 2 puffs, Every 6 hours PRN ALPRAZolam (XANAX) 0.5 mg, 2 times daily empagliflozin (JARDIANCE) 10 mg, oral, Daily furosemide (LASIX) 20 mg, oral, Daily PRN metoprolol succinate XL (TOPROL-XL) 25 mg, oral, Daily, Do not crush or chew. pantoprazole (PROTONIX) 40 mg, 2 times daily psyllium (Metamucil) 3.4 gram packet 1 packet, oral, Daily PRN spironolactone (ALDACTONE) 25 mg, oral, Daily sucralfate (CARAFATE) 1 g, 2 times daily varenicline tartrate (Chantix KENNETH) 0.5 mg (11)- 1 mg (42) tablet Use as directed on package instructions, try to quit smoking after 1 week. zolpidem (AMBIEN) 10 mg, Nightly PRN Physical [...] GERD, leg abscess, migraine. She presented to [facility] ([place]) on 12/26/2024 complaining of chest pain. She wasthen transferred to [facility] on 12/26/2024 per her request. She follows up with our teama meaghan Lindsey - Dr. Kay. Has indication for heart transplant in the future. The patient stated that at first, she believed she was experiencing an anxiety attack and took Xanax, but it did not provide any relief. She also mentioned that her pacemaker has not been checked recently and believes she needs to see her doctor, as she was told it is only functioning at 70%. She described the pain as radiating to her left shoulder and characterized it as stabbing, burning, and pressure-like. She denied lightheadedness, headaches, fever, chills, bleeding, orthopnea, paroxysmal [...] the liver. Trop 48 - 49. BNP 1895 (previously > 4,700). EKG showed tachycardic sinus rhythm with incomplete RBBB and no signs of acute ischemic changes. She has been admitted for clinical compensation. Assessment # Chest pain / Hypertrophic obstructive cardiomyopathy / Heart Failure AHA/ACC stage C with recovered LVEF 35% --> 55% --> 40% / NYHA Classification III - BNP 1,895 (previously > 4,700) - Trop 21 - 49 - 48. - Patient looks "warm and dry". - EKG showed tachycardic sinus rhythm with incomplete RBBB and no [...] the prior echocardiographic exam performed on 04/25/2021 ([facility]). Mobile echodensity reported today as above. MICKI may better assesss. - Echo (09/21/2024): 1. The left ventricular systolic function is moderately decreased with a Vann's biplane calculated ejection fraction of 40%. 2. There is global hypokinesis of the left ventricle with minor regional variations. 3. There is mildly reduced right ventricular systolic function. 4. Mild to moderate tricuspid regurgitation. 5. The Doppler estimated RVSP is severely elevated at 69 mmHg. - Keep daily weights. Patient's admission weight is 130 lb. - Low sodium diet (2g). - 1500mL fluid restriction. - Strict I&Os. - Electrolyte control and daily BMP including magnesium. - General recommendations for heart failure, including low-sodium diet, fluid restriction, daily weight and adherence to medication. - Due to chest pain and new reduction LVEF, we will request Right and Left Heart Catheterization. - The natural history of atherosclerosis was discussed with the patient. The treatment options including GDMT, percutaneous intervention or surgical intervention were discussed with the patient. All the risks, benefits and alternative procedures were discussed. Complications of the procedure were also discussed, including but not limited to risk of bleeding, stroke, infarct, infection, urgent cardiac surgery or . All questions were answered and the informed consent was obtained. After aforementioned testing and consultation, Left Heart Catheterization with potential Percutaneous CoronaryIntervention would be a reasonable approach if the patient is candidate. - Please keep NPO. - Keep Furosemide 40mg PO daily. - Keep Metoprolol succinate 25mg daily. - Keep Spironolactone 25mg daily. - Keep empagliflozin 10mg daily. - Please refer the patient to Cardiology Clinic and HF clinic (Dr. Kay) upon discharge. # S/P ICD placement - [...] need any clarifications regarding the patient's care. Code Status: Full Code Jaxson Osorio MD Cardiology [1] No family history on file. [2] Scheduled medications Medication Dose Route Frequency ALPRAZolam 0.5 mg oral BID aspirin 324 mg oral Once empagliflozin 10 mg oral Daily furosemide 20 mg oral Daily metoprolol succinate XL 25 mg oral Daily spironolactone 25 mg oral Daily sucralfate 1 g oral BID [3] PRN medications Medication acetaminophen Or acetaminophen Or acetaminophen albuterol HYDROmorphone ketorolac magnesium hydroxide nitroglycerin ondansetron ODT Or ondansetron zolpidem [4] Continuous Medications Medication Dose Last Rate [facility] Work Phone: [phone]) [phone] Consult note* Jaxson Osorio MD - 12/27/2024 11:24 AM EDTAssociated Order(s): Inpatient consult to Cardiology Inpatient consult to Cardiology Consult performed by: Jaxson Osorio MD Consult ordered by: Boo Saeed MD History Of Present Illness: Mrs. Michelle Mitchell [...] GERD, leg abscess, migraine. She presented to [facility] ([place]) on 12/26/2024 complaining of chest pain. She wasthen transferred to [facility] on 12/26/2024 per her request. She follows up with our teama meaghan Lindsey - Dr. Kay. Has indication for heart transplant in the future. The patient stated that at first, she believed she was experiencing an anxiety attack and took Xanax, but it did not provide any relief. She also mentioned that her pacemaker has not been checked recently and believes she needs to see her doctor, as she was told it is only functioning at 70%. She described the pain as radiating to her left shoulder and characterized it as stabbing, burning, and pressure-like. She denied lightheadedness, headaches, fever, chills, bleeding, orthopnea, paroxysmal [...] the liver. Trop 48 - 49. BNP 1895 (previously > 4,700). EKG showed tachycardic sinus rhythm with incomplete RBBB and no signs of acute ischemic changes. She has been admitted for clinical compensation. Last Recorded Vitals: Vitals: 12/26/24 2358 12/27/24 0400 12/27/24 0700 12/27/24 0815 BP: 123/80 117/79 116/73 BP Location: Right arm Right arm Right arm Patient Position: Sitting Lying Lying Pulse: 80 91 89 Resp: 22 18 20 Temp: 36.3 C (97.3 F) 36.3 C (97.3 F) 35.8 C (96.4 F) TempSrc: Temporal Temporal Temporal SpO2: 99% 99% 95% 96% Weight: 58.1 kg (128 lb) Height: 1.626 m (5' 4") Last Labs: CBC - 09/23/2024: 6:01 AM [...] Final BNP Date/Time Value Ref Range Status 12/27/2024 09:22 AM 1,895 (H) 0 - 99 pg/mL Final 09/21/2024 12:05 AM >4,700 (H) 0 - 99 pg/mL Final Hemoglobin A1C Date/Time Value Ref Range Status 07/25/2024 06:53 AM 5.5 4.3 - 5.6 % Final Comment: [place] [employer] guidelines indicate that patients with HgbA1c in the range 5.7-6.4% are at increased risk for development of diabetes, and intervention by lifestyle modification may be beneficial. HgbA1c greater or equal to 6.5% is considered diagnostic of diabetes. 04/25/2021 08:44 AM 5.2 4.3 - 5.6 % Final Comment: [place] [employer] guidelines indicate that patients with HgbA1c in the range 5.7-6.4% are at increased risk for development of diabetes, and intervention by lifestyle modification may be beneficial. HgbA1c greater or equal to 6.5% is considered diagnostic of diabetes. Last I/O: No intake/output data recorded. Past Cardiology Tests (Last 3 Years): EKG: ECG 12 lead ECG 12 lead 08/23/2024 Echo: Transthoracic Echo Complete 09/21/2024 Ejection Fractions: EF Date/Time Value Ref Range Status 09/21/2024 11:08 AM 40 % Cath: No results found for this or [...] cigarettes. She has never used smokeless tobacco. She reportsthat she does not drink alcohol. No history on file for drug use. Family History: Family History[1] Allergies: Wheaton, Shellfish derived, Tigan [trimethobenzamide], Vicodin [hydrocodone- acetaminophen], Azithromycin, Levofloxacin, Morphine, Prozac [fluoxetine], Ultram [tramadol], and Codeine Inpatient Medications: Scheduled Medications[2] PRN Medications[3] Continuous Medications[4] Outpatient Medications: Current Outpatient Medications Medication Instructions albuterol (Ventolin HFA) 90 mcg/actuation inhaler 2 puffs, Every 6 hours PRN ALPRAZolam (XANAX) 0.5 mg, 2 times daily empagliflozin (JARDIANCE) 10 mg, oral, Daily furosemide (LASIX) 20 mg, oral, Daily PRN metoprolol succinate XL (TOPROL-XL) 25 mg, oral, Daily, Do not crush or chew. pantoprazole (PROTONIX) 40 mg, 2 times daily psyllium (Metamucil) 3.4 gram packet 1 packet, oral, Daily PRN spironolactone (ALDACTONE) 25 mg, oral, Daily sucralfate (CARAFATE) 1 g, 2 times daily varenicline tartrate (Chantix KENNETH) 0.5 mg (11)- 1 mg (42) tablet Use as directed on package instructions, try to quit smoking after 1 week. zolpidem (AMBIEN) 10 mg, Nightly PRN Physical [...] GERD, leg abscess, migraine. She presented to [facility] ([place] on 12/26/2024 complaining of chest pain. She wasthen transferred to [facility] on 12/26/2024 per her request. She follows up with our teama meahgan [facility] - Dr. Kay. Has indication for heart transplant in the future. The patient stated that at first, she believed she was experiencing an anxiety attack and took Xanax, but it did not provide any relief. She also mentioned that her pacemaker has not been checked recently and believes she needs to see her doctor, as she was told it is only functioning at 70%. She described the pain as radiating to her left shoulder and characterized it as stabbing, burning, and pressure-like. She denied lightheadedness, headaches, fever, chills, bleeding, orthopnea, paroxysmal [...] the liver. Trop 48 - 49. BNP 1895 (previously > 4,700). EKG showed tachycardic sinus rhythm with incomplete RBBB and no signs of acute ischemic changes. She has been admitted for clinical compensation. Assessment # Chest pain / Hypertrophic obstructive cardiomyopathy / Heart Failure AHA/ACC stage C with recovered LVEF 35% --> 55% --> 40% / NYHA Classification III - BNP 1,895 (previously > 4,700) - Trop 21 - 49 - 48. - Patient looks "warm and dry". - EKG showed tachycardic sinus rhythm with incomplete RBBB and no signs of acute ischemic changes. - Echo (07/2024 - [facility]): - The left ventricle is normal [...] the prior echocardiographic exam performed on 04/25/2021 ([facility]). Mobile echodensity reported today as above. MICKI may better assesss. - Echo (09/21/2024): 1. The left ventricular systolic function is moderately decreased with a Vann's biplane calculated ejection fraction of 40%. 2. There is global hypokinesis of the left ventricle with minor regional variations. 3. There is mildly reduced right ventricular systolic function. 4. Mild to moderate tricuspid regurgitation. 5. The Doppler estimated RVSP is severely elevated at 69 mmHg. - Keep daily weights. Patient's admission weight is 130 lb. - Low sodium diet (2g). - 1500mL fluid restriction. - Strict I&Os. - Electrolyte control and daily BMP including magnesium. - General recommendations for heart failure, including low-sodium diet, fluid restriction, daily weight and adherence to medication. - Due to chest pain and new reduction LVEF, we will request Right and Left Heart Catheterization. - The natural history of atherosclerosis was discussed with the patient. The treatment options including GDMT, percutaneous intervention or surgical intervention were discussed with the patient. All the risks, benefits and alternative procedures were discussed. Complications of the procedure were also discussed, including but not limited to risk of bleeding, stroke, infarct, infection, urgent cardiac surgery or . All questions were answered and the informed consent was obtained. After aforementioned testing and consultation, Left Heart Catheterization with potential Percutaneous CoronaryIntervention would be a reasonable approach if the patient is candidate. - Please keep NPO. - Keep Furosemide 40mg PO daily. - Keep Metoprolol succinate 25mg daily. - Keep Spironolactone 25mg daily. - Keep empagliflozin 10mg daily. - Please refer the patient to Cardiology Clinic and HF clinic (Dr. Kay) upon discharge. # S/P ICD placement - [...] need any clarifications regarding the patient's care. Code Status: Full Code Jaxson Osorio MD Cardiology [1] No family history on file. [2] Scheduled medications Medication Dose Route Frequency ALPRAZolam 0.5 mg oral BID aspirin 324 mg oral Once empagliflozin 10 mg oral Daily furosemide 20 mg oral Daily metoprolol succinate XL 25 mg oral Daily spironolactone 25 mg oral Daily sucralfate 1 g oral BID [3] PRN medications Medication acetaminophen Or acetaminophen Or acetaminophen albuterol HYDROmorphone ketorolac magnesium hydroxide nitroglycerin ondansetron ODT Or ondansetron zolpidem [4] Continuous Medications Medication Dose Last [facility] Work Phone: [phone]) 922-471210-16-2025 Evaluation + Plan note* Assessment & Plan Note - Boo Saeed MD - 12/27/2024 12:42 AM EDTAssociated Problem(s): Chest pain 44-year-old female with a past medical history of hypertrophic obstructive cardiomyopathy, systoliccongestive heart failure with an ejection fraction of 40% and s/p ICD placement, pericarditis, nicotine dependence, breast cancer at the age of 18 s/p lumpectomy and chemotherapy, ovarian cancer status post oophorectomy, endometrial cancer s/p ablation, 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 In the ER, she was found to have sinus tachycardia. Blood workup showed significantly elevated BNP of 3407 and a mild leukocytosis. I will admit the patient to observation medical service with vital signs and telemetry monitoring. Patient's chest pain etiology is still unclear. Per the patient, sublingual nitro is contraindicated because of her underlying congestive heart failure. So that only leaves me with the option of giving Dilaudid 0.5 mg IV as needed for breakthrough pain. Consult cardiology. I will resume home medications SCDs for DVT prophylaxis Patient is full code [facility] Work Phone: [phone] History and physical note* Boo Saeed MD - 12/27/2024 12:33 AM EDT History Of Present Illness Michelle Mitchell is a 44 y.o. female Who presented to the emergency room for chest pain. On presentation, vital signs grossly within normal limits. Pertinent findings on blood workup; WBC 11,100, BNP 3407, and troponin 21. EKG showed sinus tachycardia. CT of the chest showed small bilateral pleural effusion and CT of the abdomen pelvis did not show any acute findings. She received in the emergency room 2 doses of the 1 mg IV Dilaudid as well as Zofran and Compazine. But yet she was still having the pain. Per the patient, she reported that initially she thought that she was having an anxiety attack and she took Xanax with no relief. She also noted that she has not had her pacemaker device checked and reported that she should see her doctor because only 70% of it is working. Her pain has been radiating to the left shoulder. Patient describing the pain as stabbing burning and pressure. ROS 10 systems were reviewed and were negative except for those noted in the history of present illness. Past Medical History Medical History[1] Pertinent medical history also documented in my below narrative Surgical History Surgical History[2] Pertinent surgical history also documented in my below narrative Social History She reports that she has been smoking cigarettes. She has never used smokeless tobacco. She reportsthat she does not drink alcohol. No history on file for drug use. Family History Family History[3] Medications Current Outpatient Medications Medication Instructions albuterol (Ventolin HFA) 90 mcg/actuation inhaler 2 puffs, Every 6 hours PRN ALPRAZolam (XANAX) 0.5 mg, 2 times daily buprenorphine (Butrans) 15 mcg/hour patch 1 patch, Once Weekly empagliflozin (JARDIANCE) 10 mg, oral, Daily furosemide (LASIX) 20 mg, Daily hyoscyamine (ANASPAZ, LEVSIN) 0.125 mg metoprolol succinate XL (TOPROL-XL) 25 mg, oral, Daily, Do not crush or chew. pantoprazole (PROTONIX) 40 mg, Daily before breakfast psyllium (Metamucil) 3.4 gram packet 1 packet, Daily spironolactone (ALDACTONE) 25 mg, oral, Daily sucralfate (CARAFATE) 1 g, 2 times daily varenicline tartrate (Chantix KENNETH) 0.5 mg (11)- 1 mg (42) tablet Use as directed on package instructions, try to quit smoking after 1 week. zolpidem (AMBIEN) 10 mg, Nightly PRN Allergies Whe[place], Shellfish derived, Tigan [trimethobenzamide], Vicodin [hydrocodone- acetaminophen], Azithromycin, Levofloxacin, Morphine, Prozac [fluoxetine], Ultram [tramadol], and Codeine Last Recorded Vitals Blood pressure 123/80, pulse 80, temperature 36.3 C (97.3 F), temperature source Temporal, resp. rate 22, height 1.626 m (5' 4"), weight 58.1 kg (128 lb), SpO2 99%. Physical Exam Constitutional: General: She is not [...] Neurological: General: No focal deficit present. Psychiatric: Comments: Depressed and anxious Relevant Results No results found for this or any previous visit (from the past [address] angio abdomen pelvis w and or wo IV IV contrast Result Date: 12/26/2024 IMPRESSION: 1. No evidence of a dissection or aneurysm the chest abdomen or pelvis 2. Small bilateral pleural effusions 3. Small amount of fluid within the fissures bilaterally 4. Subpleural reticular changes noted as discussed 5. LEFT atrium is again noted to be enlarged 6. No acute findings in the abdomen or pelvis 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: [facility] Transcribe Date/Time: Dec 26 2024 4:50P Dictated by : BILL ORNELAS DO This examination was interpreted and the report reviewed and electronically signed by: BILL ORNELAS DO on Dec 26 2024 5:09PM EST CT angio chest w and wo IV contrast Result Date: 12/26/2024 IMPRESSION: 1. No evidence of a dissection or aneurysm the chest abdomen or pelvis 2. Small bilateral pleural effusions 3. Small amount of fluid within the fissures bilaterally 4. Subpleural reticular changes noted as discussed 5. LEFT atrium is again noted to be enlarged 6. No acute findings in the abdomen or pelvis 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: [facility] Transcribe Date/Time: Dec 26 2024 4:50P Dictated by : BILL ORNELAS DO This examination was interpreted and the report reviewed and electronically signed by: BILL ORNELAS DO on Dec 26 2024 5:09PM EST Cardiology, Vascular, and Other Imaging CT angio abdomen pelvis w and or wo IV IV contrast Result Date: 12/26/2024 * * *Final Report* * * DATE OF [place]AM: Dec 26 2024 4:29PM [facility]/PELV W IVCON / PROCEDURE REASON: Aortic dissection suspected * * * * Physician Interpretation * * * * EXAMINATION: CTA CHEST WITHOUT AND WITH CONTRAST, WITH 3-D RECONSTRUCTIONS CTA ABDOMEN AND PELVIS WITH CONTRAST, WITH 3- D RECONSTRUCTIONSWith MIP's 12/26/2024 4:29 PM HISTORY: Aortic dissection suspected Chest Pain; Shoulder Pain while allowing for TECHNIQUE: Spiral CT acquisition of the chest priorto, then through the chest, abdomen and pelvis following bolus infusion of IV iodinated contrast.MIP reconstructions were performed and provided for interpretation. Contrast: IV: 100 mL of Omnipaque 350 Oral: None. CT Radiation dose: Integrated Dose-length product (DLP) for this visit = 1052 mGy*cm. CT Dose Reduction Employed: Automated exposure control(AEC) and iterative recon COMPARISON: None. RESULT: Vasculature: No aneurysm, pseudoaneurysm, dissection, or hemodynamically significant stenosis. The LEFT atrium is again noted be moderately enlarged Chest: Lines, Tubes, and Devices: N/A Lungsand Pleura: Central airways are patent. No suspicious pulmonary nodules. No consolidations. . No pneumothorax. Subpleural reticular changes are noted may relate to some interstitial lung disease. * There is fluid in the fissures RIGHT major fissure more than the others. However is decreased in amoun t since the previous study * There are bilateral pleural effusions LEFT side slightly larger than RIGHT. Right-sided decrease since previous study in the LEFT side has slightly increased. Cardiomediastinal structures: Within normal limits. Neck base: Within normal limits. Thoracic lymph nodes: No ly mphadenopathy. Bones and Soft tissues: Vertebral hemangioma is noted at the T8 level vertebral hemangioma CT No acute fracture or destructive osseous lesion. Abdomen and pelvis: Liver: No mass. Normal morphology. Biliary: No bile duct dilation. Previous cholecystectomy Spleen: No mass. No splenomegaly. Pancreas: Not well seen in the absence of oral contrast Adrenals: No mass. Kidneys: Normal appearance. Bladder is unremarkable. GI tract: No dilation or wall thickening. Lymph nodes: No abdominalor pelvic lymphadenopathy. Mesentery/Peritoneum: No free air or fluid collection. Retroperitoneum: No mass or hematoma. Pelvis: No masses identified. Bones/Soft Tissues: No acute fracture or destructive osseous lesion. - - IMPRESSION: 1. No evidence of a dissection or aneurysm the chest abdomen or pelvis 2. Small bilateral pleural effusions 3. Small amount of fluid within the fissures bilaterally 4. Subpleural reticular changes noted as discussed 5. LEFT atrium is again noted to be enlarged 6. No acute findings in the abdomen or pelvis 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: [facility] Transcribe Date/Time: Dec 26 2024 4:50P Dictated by : BILL ORNELAS DO This examination was interpreted and the report reviewed and electronically signed by: BILL ORNELAS DO on Dec 26 2024 5:09PM EST CT angio chest w and wo IV contrast Result Date: 12/26/2024 * * *Final Report* * * DATE OF EXAM: Dec 26 2024 4:29PM [facility] [place] CTA CHEST (GATED) WO/W IVCON / PROCEDURE REASON: Aortic dissection suspected * * * * Physician Interpretation * * * * EXAMINATION: CTA CHEST WITHOUT AND WITH CONTRAST, WITH 3-D RECONSTRUCTIONS CTA ABDOMEN AND PELVIS WITH CONTRAST, WITH 3-D RECONSTRUCTIONSWith MIP's 12/26/2024 4:29 PM HISTORY: Aortic dissection suspected Chest Pain; Shoulder Pain while allowing for TECHNIQUE: Spiral CT acquisition of the chest prior to, then through the chest, abdomen and pelvis following bolus infusion of IV iodinated contrast.MIP reconstructions were performed and provided for interpretation. Contrast: IV: 100 mL of Omn ipaque 350 Oral: None. CT Radiation dose: Integrated Dose-length product (DLP) for this visit = 1052 mGy*cm. CT Dose Reduction Employed: Automated exposure control(AEC) and iterative recon COMPARISON: None. RESULT: Vasculature: No aneurysm, pseudoaneurysm, dissection, or hemodynamically significantstenosis. The LEFT atrium is again noted be moderately enlarged Chest: Lines, Tubes, and Devices: N/A Lungs and Pleura: Central airways are patent. No suspicious pulmonary nodules. No consolidations.. No pneumothorax. Subpleural reticular changes are noted may relate to some interstitial lung disease. * There is fluid in the fissures RIGHT major fissure more than the others. However is decreased in amount since the previous study * There are bilateral pleural effusions LEFT side slightly larger than RIGHT. Right-sided decrease since previous study in the LEFT side has slightly increased. Cardiomediastinal structures: Within normal limits. Neck base: Within normal limits. Thoracic lymph nodes: No lymphadenopathy. Bones and Soft tissues: Vertebral hemangioma is noted at the T8 level vertebral hemangioma CT No acute fracture or destructive osseous lesion. Abdomen and pelvis: Liver: No mass. Normal morphology. Biliary: No bile duct dilation. Previous cholecystectomy Spleen: No mass. No splenomegaly. Pancreas: Not well seen in the absence of oral contrast Adrenals: No mass. Kidneys: Normal appearance. Bladder is unremarkable. GI tract: No dilation or wall thickening. Lymph nodes: No abdominal or pelvic lymphadenopathy. Mesentery/Peritoneum: No free air or fluid collection. Retroperitoneum: No mass or hematoma. Pelvis: No masses identified. Bones/Soft Tissues: No acute fracture or destructive osseous lesion. - - IMPRESSION: 1. No evidence of a dissection or aneurysm the chest abdomen or pelvis 2. Small bilateral pleural effusions 3. Small amount of fluid within the fissures bilaterally 4. Subpleural reticular changes noted as discussed 5. LEFT atrium is again noted to be enlarged 6. No acute findings in the abdomen or pelvis 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: [facility] Transcribe Date/Time: Dec 26 2024 4:50P Dictated by : BILL ORNELAS DO This examination was interpreted and the report reviewed and electronically signed by: BILL ORNELAS DO on Dec 26 2024 5:09PM EST Assessment & Plan Chest pain 44-year-old female with a past medical history of hypertrophic obstructive cardiomyopathy, systoliccongestive heart failure with an ejection fraction of 40% and s/p ICD placement, pericarditis, nicotine dependence, breast cancer at the age of 18 s/p lumpectomy and chemotherapy, ovarian cancer status post oophorectomy, endometrial cancer s/p ablation, 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 In the ER, she was found to have sinus tachycardia. Blood workup showed significantly elevated BNP of 3407 and a mild leukocytosis. I will admit the patient to observation medical service with vital signs and telemetry monitoring. Patient's chest pain etiology is still unclear. Per the patient, sublingual nitro is contraindicated because of her underlying congestive heart failure. So that only leaves me with the option of giving Dilaudid 0.5 mg IV as needed for breakthrough pain. Consult cardiology. I will resume home medications SCDs for DVT prophylaxis Patient is full code (This note was generated with voice recognition software and may contain errors including spelling,grammar, syntax and misrecognition of what was dictated, that are not fully corrected) Boo Saeed MD [1] No past medical history on file. [2] No past surgical history on file. [3] No family history on file. [facility] Work Phone: 1(574) 365-706310-15-2025 [facility]10-15-2025 Procedure [facility]10-15-2025 Plan of care note* Care Plan - Ana Iglesias RN - 12/26/2024 12:00 AM EDT Problem: Skin Goal: Prevent/minimize sheer/friction injuries Outcome: Progressing Flowsheets (Taken 12/26/2024 0000) Prevent/minimize sheer/friction injuries: Use pull sheet [facility] Work Phone: 1(356) 834-881710-15-2025 Plan of care note* Care Plan - Ana Iglesias RN - 12/26/2024 12:00 AM EDT Problem: Skin Goal: Prevent/minimize sheer/friction injuries 12/27/2024 0451 by Ana Iglesias RN Outcome: Progressing 12/27/2024 0450 by Ana Iglesias RN Outcome: Progressing Flowsheets (Taken 12/26/2024 0000) Prevent/minimize sheer/friction injuries: Use pull sheet [facility] Work Phone: 1(279) 491-366810-01-2025 Progress note Author Quang Myles [facility] Note Date/Time December 12, 2024 5: 07pm [facility] [address] [place] [address] OFFICE VISIT Date of Service: 12/12/24 MR#: [id number] Acct: [id number] Name: MICHELLE MITCHELL Rep #: [id number] : 1980 Provider: Quang Myles DO Age/Sex: 44/F [place] [facility] [place] Status: Signed Intake Vital Signs 07/21/24 09:02 10/17/24 15:31 11/27/24 22:49 Height 5 ft 4 in 5 ft 4 in 5 ft 4 in Intake Visit Reasons: 3 M FU/Test Results Allergies gabapentin (From Neurontin) Allergy (Severe, Verified 11/27/24 22:51) Anaphylaxis morphine Allergy (Mild, Verified 11/27/24 22:51) Hives codeine Allergy (Verified 11/27/24 22:51) Hives erythromycin base Allergy (Verified 11/27/24 22:51) PT UNSURE OF REACTION Fish Containing Products Allergy (Verified 11/27/24 22:51) Other levofloxacin Allergy (Verified 11/27/24 22:51) PT UNSURE OF REACTION shellfish derived Allergy (Verified 11/27/24 22:51) Other tramadol Allergy (Verified 11/27/24 22:51) Hives trimethobenzamide (From Tigan) Allergy (Verified 11/27/24 22:51) Other hydrocodone (From Vicodin) Adverse Reaction (Verified 11/27/24 22:51) Other metoclopramide (From Reglan) Adverse Reaction (Verified 11/27/24 22:51) Other Medications ?Medication ?Instructions ?Recorded ?Confirmed ?Type alprazolam 0.5 mg tablet 0.5 mg PO BID ANXIETY 12/12/24 History zolpidem 10 mg tablet 10 mg PO QHS SLEEP 11/13/21 12/12/24 History sucralfate 1 gram tablet (Carafate) 1 g PO BIDCM GERD 07/10/24 12/12/24 History metoprolol succinate 25 mg 25 mg PO QDAY HEART 5 12/12/24 History tablet,extended release 24 hr pantoprazole 40 mg tablet,delayed 40 mg PO BID GERD 12/12/24 History release spironolactone 25 mg tablet 25 mg PO DAILY WATER PILL 08/20/24 12/12/24 History empagliflozin 10 mg tablet 10 mg PO QDAY 10/12/2404/07 History (Jardiance) furosemide 20 mg tablet (Lasix) 20 mg PO QDAY PRN rosario a 10/17/24 12/12/24 History ondansetron 4 mg disintegrating 4 mg PO Q8H PRN PRN Na usea #10 tabs 11/25/24 12/12/24 Rx tablet varenicline tartrate 0.5 mg (11)-1 tab PO 11/25/2404/07 History mg (42) tablets in a dose pack fluconazole 100 mg tablet 100 mg PO BID 14 days #28 ta bs 12/03/24 12/12/24 Rx PFSH Medical History Normal Holter exam Cardiology [...] pain Pulmonary embolism Endometrial cancer Cervical cancer detention current use of 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 Ovarian cancer GERD (gastroesophageal reflux disease) Insomnia Anxiety Collapsed lung History of blood clots Asthma Breast cancer Pacemaker ICD (implantable cardioverter-defibrillator) in place Hypertrophic cardiomyopathy Surgical History History of esophagogastroduodenoscopy (EGD) History of ERCP Presence of implantable cardioverter-defibrillator (ICD) History of cardiac catheterization History of oophorectomy History of cervical polypectomy History of colonoscopy History of tubal ligation History of mastectomy History of cholecystectomy Hx of appendectomy Family History Father Heart disease Idiopathic hypertrophic subaortic stenosis, hypertrophic obstructive cardiomyopathy, congestive heart failure Mother Breast cancer DVT (deep venous thrombosis) Sister Hypertrophic obstructive cardiomyopathy heart transplant at age 34 Cancer Brain, breast, and colon Grandfather Heart disease at age 45 Grandmother CVA (cerebral vascular accident) age 43 Social History household members: spouse and family housing: house current occupational status: employed Smoking Status: Current every day smoker tobacco type: cigarettes how long ago did patient quit smokin months ago alcohol intake: former substance use type: does not use caffeine: Yes HPI HPI Details: MICHELLE MITCHELL, is a 44 F who presents to the office today for follow up. [facility] 07.03.24 with upper abd pain with associated vomiting. Past surgical hx of cholecystectomy, appendectomy, oophorectomy and tubal ligation. CT abd/pelvis 07.01.24 Subtle wall thickening of the distal and terminal ileum with hyperenhancement of the wall, suspicious for inflammatory bowel disease, please correlate clinically. Hepatomegaly.Suspected pelvic congestion. Small pelvic free fluid. Small bilateral pleural effusion with atelectasis. I established 07.03.24 with chronic abd pain. EGD and Colonoscopy 07.12.24 EGD Normal esophagus. Acute gastritis with hemorrhage. Biopsied. Erythematous duodenopathy. Biopsied. Colonoscopy The rectum, sigmoid colon, descending colon, splenic flexure, transverse colon, hepatic flexure, ascending colon and recto-sigmoid colon are normal. Biopsied. Congested mucosa in the terminal ileum. Biopsied. The examined portion of the ileum was normal. Biopsied. OV 08.08.24 Continued abd pain. MRCP ordered. May need ERCP to evaluation for sphincter of Oddi syndrome, cholelithiasis and ampullary lesion. [facility] ED 08.11.24 [facility] admission 6.01.05-6 with abd pain. Work up showing worsening elevationin alk phos, normal bili and normal lipase. Admitted for ERCP. ERCP 08.21.24 Biliary papillary stenosis, indeterminate. A single localized biliary stricture was found in the lower third of the main bile duct. The patient has had a cholecystectomy. Mild dilatation of the the pancreatic duct in the genu of the pancreas was found. A pancreatic duct stricture was found. A pancreatic obstruction was found in the genu of thepancreas. Choledocholithiasis was found. Complete removal was accomplished by biliary sphincterotomy and balloon extraction. A single pancreatic stone was found. A biliary sphincterotomy was performed. The biliary tree was swept. Cells for cytology obtained in the lower third of the main duct. One temporary stent was placed into the common bile duct. A pancreatic sphincterotomy was performed. The biliary tree was swept. One temporary stent was placed into the ventral pancreatic duct. Cells for cytology obtained in the ventral pancreatic duct in the head of the pancreas. No specimens collected. MRCP 08.27.24 1. Minimal bilateral pleural effusions. 2. Passive atelectatic airspace disease of the lower lobes. Mild cardiomegaly. 4. Hepatomegaly with hepatic steatosis. 5. Pneumobilia in the left hepatic lobe. 6. Prior cholecystectomy. Unremarkable stents in the common bile and pancreatic ducts. Mild edema of the pancreatic head and uncinate process, possibly mild changes of acute pancreatitis. Please correlate with lipase value. 9. Mild diffuse thickening of the stomach, probably gastritis. Minimal perihepatic free fluid. Pain management; recent celiac nerve block. Did not help with pain [facility] admission 7.2.25-7.4.25 CT abd/pelvis 7.1.25 Basilar atelectasis. Mildly enlarged heart. Hepatomegaly and diffuse hepatic steatosis. Correlate for possible hepatitis. Status post cholecystectomy. Biliary stent in good position. Biliary air,likely iatrogenic. Pancreatic stent. No acute pancreatic pathology. [...] unchanged position, and there is trace left pneumobiliawhich is also unchanged. 2. Heterogeneous enhancement of the mildly enlarged liver, without discrete lesion. Differential again includes hepatitis,hepatic fibrosis, or transient hepatic attenuation differences (GIL), amongst other etiologies. Correlate with laboratory analysis. 3. Trace perihepatic ascites and small volume of pelvic free fluid. OV 7.8.25 Pt here today for f/u after hospital admission. Pt was hospitalized with abd pain after celiac nerve block. Pt also with Hx of hypertrophic cardiomyopathy. She feels she is having increased swelling and SOB. ERCP 11.23.24 Normal upper GI tract. One stent was removed from the biliary tree. One stent was removed from the biliary tree. [facility] ED 11.25.24 pt presents with abdominal pain abd/pelvis CT 11.25.24 1. Mild cardiomegaly with interstitial edema. 2. Small ground-glass lung opacities bilaterally, likely edema or infection. 3. Moderate left pelvic varicosities. Correlate clinically for signs of pelvic congestion syndrome. 4. Hepatomegaly. OV 10.1.25 pt reports ongoing abd pain, nausea, and bloating. Pt reports she would like to review her ERCP. ROS Const Constitutional: Positive for fatigue and weight change (weight gain); No fever(s) ENT ENT: No difficulty swallowing Gastro GI: Positive for abdominal pain, bloating, excessive flatus and nausea/dyspepsia; No belching, change in bowel habits, change in stool character, coffee ground emesis, constipation, cramping, diarrhea, heartburn, difficulty swallowing, feeling full early, incontinent of stools, Vomiting blood/hematemesis, Blood in stool, loose stools, Black,tarry stools, pain with swallowing, vomiting or other Musc Musculoskeletal: No joint pain Skin Skin: No yellowing of the eye or itchy eyes Psych Psychiatric: Positive for anxiety and No depression Endo Endocrine: Positive for fatigue and weight change (weight gain) Aller/Imm Allergy/Immunologic: No itchy eyes Valeriano/Lymp Hematologic/Lymphatic: Positive for easy bruising; No easy bleeding Exam Const General: cooperative and healthy appearing Orientation: alert [facility] Head: normal to inspection Eyes General: appearance normal, both eyes and all related structures Neck Neck: normal visual inspection Chest Chest palpation & inspection: normal inspection of the chest Resp Effort & Inspection: normal respiratory effort Cardio Rate: regular rate Rhythm: regular rhythm GI Inspection: normal to inspection Auscultation: normal bowel sounds Palpation: soft and tender Assessment and Plan Assessment and Plan (1) Elevated lipase: Status: Acute (2) Chronic abdominal pain: Status: Chronic (3) Pulmonary hypertension: Status: Acute (4) Abdominal pain: Status: Inactive Qualifiers: Abdominal location: unspecified location Qualified Code(s): R10.9 - Unspecified abdominal pain Plan: This is a 43 yo female pt here today for evaluation of abdominal pain x3 days. Pt presented to the ED 07.01.24 with complaints of abd pain and underwent CT which showed thickening in the colon concerning for IBD. Pt pain has continued to increase since the ED. She endorses constipation, diffuse abd pain, nausea and vomiting. She will undergo EGD and colonoscopy for assessment of her lower and upper GI tract. Pt was scheduled for this today. I will also order stool testing to rule out infection or inflammation in her colon. On exam, she was tender diffusely and in the epigastric region. I advised that if her pain becomes unmanageable then she should present back to the ED as I am un able to control her acute pain in the outpatient setting. -Stool testing -Colonoscopy -EGD (5) GERD (gastroesophageal reflux disease): Status: Inactive (6) Diarrhea: Status: Acute Plan: She was recently in the hospital for paroxysmal nocturnal dyspnea. Patient has a history of familial hypertrophic [...] by radiology so she can get MRCP. She underwent ERCP and was discovered to have choledocholithiasis and biliary stricture. She underwent stent placement in thebile duct and pancreatic duct. She still had abdominal pain before and after the procedure. The stents were removed. She also has a previous DCIS and history of breast cancer status post lobectomy and previous history of ovarian cancer as per the patient status post total abdominal hysterectomy. Awaiting rest of her labs. Orders: Orders CBC W/Diff, Automated Today G89.29 - Other chronic pain, R10.9 - Unspecified abdominal pain, R74.8 - Abnormal levels of other serum enzymes CRP Today G89.29 - Other chronic pain, R10.9 - Unspecified abdominal pain, R74.8 - Abnormal levels of other serum enzymes Erythrocyte Sed Rate Today G89.29 - Other chronic pain, R10.9 - Unspecified abdominal pain, R74.8 - Abnormal levels of other serum enzymes Amylase Today G89.29 - Other chronic pain, R10.9 - Unspecified abdominal pain, R74.8 - Abnormal levels of other serum enzymes Lipase Today G89.29 - Other chronic pain, R10.9 - Unspecified abdominal pain, R74.8 - Abnormal levels of other serum enzymes Comprehensive Metabolic Profil Today G89.29 - Other chronic pain, R10.9 - Unspecified abdominal pain, R74.8 - Abnormal levels of other serum enzymes Coding Level of Care Code Off vis,est,level 4 Diagnoses Elevated lipase R74.8 Chronic abdominal pain R10.9; G89.29 Pulmonary hypertension I27.20 Abdominal pain, unspecified abdominal location R10.9 Abdominal location: unspecified location GERD (gastroesophageal reflux disease) K21.9 Diarrhea R19.7 12/12/24 1707 <Electronically signed by Quang arciniega DO> Date _ Quang Friend DO Tank Signature: Date (if applicable) CC: ~ [place] [employer] Work Phone: 1(183) 290-541609-16-[address] [facility]2025 Telephone encounter Note* Telephone Encounter - Anabell Winters RN - 11/27/2024 7:46 PM EDT Your fax has been successfully sent to Dr. Wilkinson at [phone]. 11/27/2024 7:11:18 PM Origin Record Created by KELLY 11/27/2024 7:11:28 PM Conversion [[id number]] Type: application/x-pcl G3 to TIFF #1: Success [image/g3] (36ms) Image Optimization #1: Success [image/tiff] (78ms) PCL6 #1: Success [image/tiff] (501ms) ([id number]:WORKSRV2) 11/27/2024 7:11:39 PM Conversion Successfully created cover sheet. Type: application/vnd.openxmlformats-officedocument.wordprocessingml.document G3 to TIFF #1: Success [image/g3] (10ms) GhostScript TIFF #1: Success [image/tiff] (65ms) Resubmitted: [application/postscript] Word Automation #1: Success [image/g3] (1719ms) ([id number]:WORKSRV2) 11/27/2024 7:12:01 PM Transmission Record Sent to [id number] with remote ID "[id number]" Result: Success Page record: 1 - 3 Elapsed time: 01:13 on channel 54 [id number] Miscellaneous Notes* Telephone Encounter - Anabell Winters RN - 11/27/2024 7:46 PM EDT Your fax has been successfully sent to Dr. Wilkinson at [phone]. 11/27/2024 7:11:18 PM Origin Record Created by KELLY 11/27/2024 7:11:28 PM Conversion [[id number].PRT] Type: application/x-pcl G3 to TIFF #1: Success [image/g3] (36ms) Image Optimization #1: Success [image/tiff] (78ms) PCL6 #1: Success [image/tiff] (501ms) ([id number]:WORKSRV2) 11/27/2024 7:11:39 PM Conversion Successfully created cover sheet. Type: application/vnd.openxmlformats-officedocument.wordprocessingml.document G3 to TIFF #1: Success [image/g3] (10ms) GhostScript TIFF #1: Success [image/tiff] (65ms) Resubmitted: [application/postscript] Word Automation #1: Success [image/g3] (1719ms) ([id number]:WORKSRV2) 11/27/2024 7:12:01 PM Transmission Record Sent to [id number] with remote ID "[id number]" Result: Success Page record: 1 - 3 Elapsed time: 01:13 on channel 54 * Telephone Encounter - Anabell Winters RN - 11/27/2024 7:02 PM EDT Reason for Disposition [1] Chest pain lasts > 5 minutes AND [2] age > 44 Protocols used: Chest Cdvl-YVWAK-LZ S: Pt calling [facility] c/o chest pain and worsening difficulty breathing. B: Symptoms began 11/24/2024. A: Pt c/o chest pain with moderate to severe difficulty breathing. States her lips are price. She had ESRP done last week. Was seen in [facility] ED for same on 11/25/24 and had labs and a CT done, patient told everything was fine but breathing is much worse. R: Advised pt to hang up now and dial 911. She agreed. documented in this encounterSDiley Ridge Medical [id number] Telephone encounter Note* Telephone Encounter - Anabell Winters RN - 11/27/2024 7:02 PM EDT Reason for Disposition [1] Chest pain lasts > 5 minutes AND [2] age > 44 Protocols used: Chest Jchd-BPANG-LC S: Pt calling [facility] c/o chest pain and worsening difficulty breathing. B: Symptoms began 11/24/2024. A: Pt c/o chest pain with moderate to severe difficulty breathing. States her lips are price. She had ESRP done last week. Was seen in [facility] ED for same on 11/25/24 and had labs and a CT done, patient told everything was fine but breathing is much worse. R: Advised pt to hang up now and dial 911. She agreed. [facility] [id number] Discharge summary Author Rubin Briggs [facility] Note Date/Time November 27, 2024 11:55pm [facility] Medical Records Department [address] [place] [address] Emergency Department Summary 11/27/24 MR#: [id number] Acct: [id number] Name: MICHELLE MITCHELL Rep #:[id number] 3 : 1980 44 From: Rubin Briggs MD PCP: Dr. Dex Wilkinson MD Status:R EG ER Location: ED HPI History of Present Illness Chief Complaint: Shortness of Breath Narrative Narrative: 44-year-old female past medical history of chronic epigastric pain, smoker, ICD placement for hokum presents with shortness of breath that started this afternoon. She relates history that a few days ago, she had ERCP performed findout the reason for her abdominal pain. She states she had stents removed by . She was seen in the emergency department 2 days ago for the epigastric pain. She states that she developed shortness of breath and cough earlier this afternoon. She states she has a history of heart failure and is on spironolactone as well. She starts Lasix when she gains 5 pounds within 3 days. She is about to take her Lasix as she states she is having weight gain, and sheusually accumulates fluid in her abdomen but not in her legs. She states that she has used an inhaler without relief of her symptoms. She has a "nasty cough"and felt subjectively feverish this afternoon as well. She states she is concerned that she may have pneumonia. Additionally, she states that she is trying to quit smoking and took Chantix today. She did try to smoke a cigarettebut became increasingly more short of breath. 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 Ovarian cancer GERD [...] mg (42) tablets in a dose pack buprenorphine 10 mcg/hour weekly 1 patch topical QWEEK 11/27/24 Unknown History transdermal patch Allergy/AdvReac Type Severity Reaction Status Date / Time gabapentin (From Neurontin) Allergy Severe Anaphylaxis Verified 11/27/24 22:51 morphine Allergy Mild Hives Verified 11/27/24 22:51 codeine Allergy Hives Verified 11/27/24 22:51 erythromycin base Allergy PT UNSURE Verified 11/27/24 22:51 OF REACTION Fish Containing Products Allergy Other Verified 11/27/24 22:51 levofloxacin Allergy PT UNSURE Verified 11/27/24 22:51 OF REACTION shellfish derived Allergy Other Verified 11/27/24 22:51 tramadol Allergy Hives Verified 11/27/24 22:51 trimethobenzamide (From Allergy Other Verified 11/27/24 22:51 Tigan) hydrocodone (From Vicodin) AdvReac Other Verified 11/27/24 22:51 metoclopramide (From Reglan) AdvReac Other Verified 11/27/24 22:51 Family History Father Heart disease Idiopathic hypertrophic [...] not use caffeine: Yes ROS ROS ED ROS Narrative Review of systems positive for cough, shortness of breath, subjective fever. Chronic abdominal pain, epigastric. No edema of legs. Positive weight gain of 5 pounds in 3 days. EXAM Physical Exam Narrative Exam Narrative: Afebrile. Vital signs noted. Nontoxic-appearing. Cardiovascular examination reveals a regular rate and rhythm. She has occasional rhonchi in the bilateral lung bases, but no respiratory distress, no overt wheezing or stridor. Abdomen is soft with mild tenderness in the epigastrium but no guarding or rebound. No pedal edema. Neurological examination is nonfocal, nonlateralizing, able to transfer from standing to cot without difficulty/independently. Const Vital Signs: 11/27/24 22:49 11/27/24 23:00 11/27/24 23:07 Temperature 98.2 F Temperature Source Oral Pulse Rate 88 Respiratory Rate 20 H Respiratory Effort Short of Breath Respiratory Pattern Tachypnea Blood Pressure 122/71 H Blood Pressure Mean 88 Pulse Ox 98 Oxygen Delivery Method Room Air Room Air Room Air 11/27/24 23:24 11/27/24 23:47 Temperature Temperature Source Pulse Rate 89 85 Respiratory Rate 20 H 22 H Respiratory Effort Respiratory Pattern Normal Blood Pressure 143/57 H Blood Pressure Mean 85 Pulse Ox 98 Oxygen Delivery Method Room Air MDM MDM MDM Narrative Medical decision making narrative: I reviewed her prior ED visit from 2 days ago. She had a CT scan. It did show inflammation of the bilateral lung bases, but no acute process intra-abdominal. The differential diagnosis includes but not limited to CHF exacerbation versus bronchitis versus pneumonia. I have lower clinical suspicion for pneumothorax or pulmonary embolism because a history and physical does not support this. Additionally, she may be having more exacerbation of her chronic abdominal pain or anxiety attack. Her pulse ox is 98% on room air without evidence of hypoxia. I do feel that chest x- ray should be obtained as well as COVID/influenza/RSV swab. She was given a DuoNeb aerosolized treatment. EKG was obtained and interpreted by myself independently as normal sinus rhythm at 86 bpm without ectopy or acute ST changes. No STEMI. I reviewed her laboratory work and she has slight leukocytosis of 12.31 compared to yesterday, but when compared to prior laboratories she almost has a chronic leukocytosis ashigh as 19,000. Hemoglobin normal at 12.6, hematocrit 38.6, platelet count normal at 241. X-ray of the chest in 2 views interpreted by myself independently shows no evidence of consolidation or pneumonia. I do not feel antibiotics are indicated. She does have cardiomegaly and ICD. I reviewed the radiology report which confirms my independent interpretation. On repeat examination, she states she feels the same. She states she felt improved while in the aerosol treatment was being given. I reviewed her remaining laboratory work and her BNP is grossly unremarkable except for carbon dioxide of 17.7 which may be secondary to hyperventilation. Normal BUN and creatinine. Glucose 121 with a normal anion gap of 14. BNP is elevated at 3112. When compared to prior labs, has been as high as 6000. I ordered Lasix 40 mg intravenously, but patient declined stating that when she receives it hereit makes her shortness of breast warmth. She would prefer to take her oral Lasix at home. Given her negative workup thus far, although COVID influenza andRSV swab is pending, patient is motivated for discharge. I do not feel she needs to wait as treatment will still be the same. Smoking cessation was discussed. She was given dose of Dilaudid 0.5 mg intravenously prior to discharge. I feel she can be discharged to follow-up. Return instructions reviewed. Disposition discharged home in stable condition. History & Record Review Discussion w/independent historian: Patient Additional record(s) reviewed:: Prior ED visit and Prior labs Lab Data Attestation: I reviewed the patient's lab results. Labs: Laboratory Results - last 24 hr 11/27/24 23:07 WBC 12.3 H RBC 4.14 L Hgb 12.6 Hct 38.6 MCV 93.2 MCH 30.4 MCHC 32.6 RDW Std Deviation 51.3 H RDW Coeff of Damon 15.0 H Plt Count 241 MPV 10.7 Immature Gran % (Auto) 0.400 Neut % (Auto) 80.3 H Lymph % (Auto) 11.3 L [place] % (Auto) 6.2 Eos % (Auto) 1.3 Baso % (Auto) 0.5 Absolute Neuts (auto) 9.8 H Absolute Lymphs (auto) 1.39 Nucleated RBC % 0 Sodium 135 Potassium 3.8 Chloride 103 Carbon Dioxide 17.7 L Anion Gap 14 BUN 10 Creatinine 0.79 Estim Creat Clear Calc 77.66 Est GFR (MDRD) Non-Af 94 BUN/Creatinine Ratio 12.7 Glucose 121 H Calcium 9.3 NT pro BNP II 3112 H Radiography Diagnostic Testing: Clinical Impression(s) from Imaging Studies Chest X-Ray 11/27/24 23:18 IMPRESSION: Cardiomegaly. No acute pulmonary disease. Reading Location: [facility] Discharge Plan Triage Chief Complaint: Shortness of Breath ED Provider: Rubin Briggs Dx/Rx/DC Orders Clinical Impression: Shortness of breath, Chronic abdominal pain, Elevated brain natriuretic peptide(BNP) level Instructions: ED Abdominal Pain Unkn Cause Fem, ED Chronic Pain, ED Dyspnea Prescriptions: No Action metoprolol succinate 25 mg [...] mcg/hour patch weekly 1 patch topical QWEEK ondansetron 4 mg tablet,disintegrating 4 mg PO Q8H PRN PRN (Reason: Nausea) Qty: 10 0RF buprenorphine 10 mcg/hour patch weekly 1 patch topical QWEEK Primary Care Provider: Dex Wilkinson Referrals: Dex Wilkinson MD [Primary Care Provider] - As soon as possible Activity Restrictions/Additional Instructions: Take your Lasix as previously directed. Stop smoking. Use your inhaler every 4hours as previously directed. Follow-up with pain management as well has gastroenterology, Dr. Myles. Print Language: Macanese Disposition Disposition: Home, Self Care What to do if you have Problems For any increased pain, shortness of breath, bleeding, nausea or vomiting, chestpain, or any unexpected problems, contact your Primary Care Provider. Call [facility] ([phone]) or report to the closest Emergency Room. Call 911 if necessary. 11/27/246 <Electronically signed by Rubin Briggs MD> Cosigner Signature (if applicable): CC: Dr. Dex Wilkinson MD ~ Signed [facility] Work Phone: [phone]) 526-859109-14-[address] [facility]09-14-2025 Discharge summary Author Carlos Nair [facility] Note Date/Time November 25, 2024 6:37pm [facility] Medical Records Department [address] [place] [address] Emergency Department Summary 11/25/24 MR#: [id number] Acct: [id number] Name: MICHELLE MITCHELL Rep #:[id number] 1 : 1980 44 From: Carlos Jama PCP: Dr. Dex Wilkinson MD Status:R EG ER Location: ED HPI History of Present Illness Chief Complaint: Abd Pain PFSH PFSH Medical History Normal Holter exam Cardiology [...] pain Pulmonary embolism Endometrial cancer Cervical cancer detention current use of 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 Ovarian cancer GERD [...] Method Room Air Room Air Room Air [facility] Narrative Medical decision making narrative: HISTORY OF [...] reviewed, Vital signs reviewed Constitutional: [facility] HENT: MMM Eyes: Pupils equal round [...] regarding chronic pain, she also follows with [facility] regarding abnormal uterine bleeding Factors affecting care: As per HPI Social determinants of health: Current every day smoker History obtained from others: none Consults: none [facility] Narrative: The patient was hemodynamically stable, afebrile [...] Discharge home This note was generated with [employer] dictation software. It may contain incorrectwords, spelling, [...] 84.7 H Lymph % (Auto) 6.8 L [place] % (Auto) 6.4 Eos % (Auto) 1.3 [...] Clarity Clear Urine pH 7.0 Ur Specific [place] 1.005 Urine Protein 30 H Urine Glucose [...] of pelviccongestion syndrome. 4. Hepatomegaly. Reading Location: [facility] Discharge Plan Triage Chief Complaint: Abd Pain [...] Dex Wilkinson MD [Primary Care Provider] - Friend,DO Quang [Med Staff - Active Staff] - Activity [...] for further outpatient evaluationand management. Print Language: Macanese Disposition Disposition: Home, Self Care What to do if you have Problems For any increased pain, shortness of breath, bleeding, nausea or vomiting, chestpain, or any unexpected problems, contact your Primary Care Provider. Call [facility] ([phone]) or report to the closest Emergency Room. Call 911 if necessary. 11/25/24 1837 <Electronically signed by Carlos Nair DO> Cosigner Signature (if applicable): CC: Dr. Dex Wilkinson MD ~ Signed [facility] Work Phone: 1(360) 824-945609-12-2025 History and physical note Author Quang Myles [facility] Note Date/Time November 23, 2024 1:35pm [facility] Medical Records Department [address] [place] [address] History & Physical Exam 11/23/24 1332 MR#: [id number] Acct: [id number] Name: MICHELLE MITCHELL Rep #:[id number] : 1980 44 From: Quang Myles DO PCP: Dr. Dex Wilkinson MD Status:R [facility] Location: [place] [address] HPI - General General Date of Admission: 11/23/24 Date of Service: 11/23/24 Chief Complaint: Biliary stent removal HPI Narrative MICHELLE MITCHELL, is a 44 F who presents with the Chief Complaint: abd pain [facility] 07.03.24 with upper abd pain with associated vomiting. Past surgical hx of cholecystectomy, appendectomy, oophorectomy and tubal ligation. CT abd/pelvis . Subtle wall thickening of the distal and terminal ileum with hyperenhancement of the wall, suspicious for inflammatory bowel disease, please correlate clinically. Hepatomegaly.Suspected pelvic congestion. Small pelvic free fluid. Small bilateral pleural effusion with atelectasis. BGI established . with chronic abd pain. EGD 5.04.07; - Normal esophagus. - Acute gastritis with hemorrhage. Biopsied. - Erythematous duodenopathy. Biopsied. Colonoscopy .04.07 - The rectum, sigmoid colon, descending colon, splenic flexure, transverse colon, hepatic flexure, ascending colon and recto-sigmoid colon are normal. Biopsied. - Congested mucosa in the terminal ileum. Biopsied. - The examined portion of the ileum was normal. Biopsied. OV 5.25 Continued abd pain. MRCP ordered. May need ERCP to evaluation for sphincter of Oddi syndrome, cholelithiasis and ampullary lesion. [facility] ED 5.31.25 [facility] admission 08.21.24-08.24.24 with abd pain. Work [...] nerve block. Did not help with pain [facility] admission 7.2.-7.4. CT abd/pelvis 7.04.07;Basilar atelectasis. Mildly enlarged heart. [...] she is having increased swelling and sob. [facility] Medical History Normal Holter exam Cardiology follow-up [...] pain Pulmonary embolism Endometrial cancer Cervical cancer detention current use of 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 Ovarian cancer GERD [...] tablet (Lasix) 20 mg PO QDAY PRN rosairo a 10/17/24 Unknown History Allergy/AdvReac Type Severity [...] Pt also with hypertrophic cardiomyopathy following with operator specialist communications at . SHe endorses worsening sob and swelling. I advised she call her operator specialist communications or present to the ED if symptoms [...] pain, R10.9 - Unspecified abdominal pain Referrals [facility] N93.9 - Abnormal uterine and vaginal bleeding, unspecified Medications: New hyoscyamine sulfate 0.125 mg PO BID-QID 60 tabs 1RF dyspepsia 11/23/24 1335 <Electronically signed by Quang Myles DO> Cosigner Signature (if applicable): CC: Dr. Dex Wilkinson MD; Quang Myles DO~ Signed [facility] Work Phone: 1(644) 576-931009-12-[address] [facility]09-12-[address] [facility]09-12-[address] [facility]09-12-2025 Consult note Author Willian Munoz [facility] Note Date/Time November 23, 2024 12:39pm [facility] Medical Records Department [address] [place] [address] Pre-Anesthesia Evaluation 11/23/24 1233 MR#: [id number] Acct: [id number] Name: MICHELLE MITCHELL Rep #:[id number] : 1980 44 From: Willian Munoz MD PCP: Dr. Dex Wilkinson MD Status:R EG SDC Y Race: C Location: [place] [address] ASA Classification* ASA Classification ASA Classification: 4 [...] Procedure(s): ERCP Anesthesia History Anesthesia History - basket grader: Anesthesia History - basket grader Hx Hospitalization Yes: 05/2024 ABSCESS TURNED 10/24/24 [...] take am of surgery PONV PONV - basket grader: PONV - basket grader Female Yes 10/24/24 09:44 HX of Motion [...] 10/17/24 15:31 Respiratory Assessment Respiratory Assessment - basket grader: Respiratory Tract Infection Hx - basket grader Hx Respiratory Tract Infection No 10/24/24 09:44 STOP Sleep Apnea STOP Sleep Apnea - basket grader: STOP Sleep Apnea - basket grader Hx Hypertension No 10/24/24 09:44 Hx Sleep [...] Tobacco Use History Tobacco Use History - basket grader: Tobacco Use History - basket grader Tobacco Use Smoking Status Current every day smoker 10/24/24 09:44 Hx Tobacco Use Yes 10/24/24 09:44 Years Smoking Packs Smoked per Day Smoking Cessation Date was within the last 15 years Hx Smoking Cessation Date Hx Smoking Cessation No 10/24/24 09:44 Counseling Hematologic Medial History Hematologic Hx - basket grader: 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 [address] Echo Complete 07/21/24 1046 MR#: [id number] Acct: [id number] Name: MICHELLE MITCHELL Rep #: [id number] : 1980 43 From: Saman Clay MD [...] MD Cosigner Signature: Date CC: ~ Signed [facility] Work Phone: 1(812) 834-324609-12-2025 [facility]09-10-2025 History of Present illness Narrative* aRdu Kay MD - 11/21/2024 10:30 AM EDT Advanced [facility] Failure Clinic Note CHIEF COMPLAINT: No chief complaint on file. Primary Care Physician: Dex Wilkinson MD Forms Builder- Dario ([facility]) GI- Friend HISTORY OF PRESENT ILLNESS: Michelle Mitchell is a 44 y.o. female with hypertrophic cardiomyopathy who presents as a new patient Briefly she was apparently diagnosed with hypertrophic cardiomyopathy after an episode of syncope underwent ICD placement in 2006 with lead revision in 2008, and then explant of the entire device with reimplantation in 2016, she was followed with a local operator specialist communications Dr Bishop (was following at [facility] she moved to [place] in 2021), notably she was admitted with chest pressure to [facility] in 2014 and 2016 felt to be due to her ICD It appears that she was admitted with a leg abscess in May 2024 with an ER visit for abdominal pain the question of IBD was raised and she underwent a biopsy during EGD, she was admitted with dyspnea echocardiogram showing possible vegetation and was transferred to [facility], her blood cultures were negative and [...] herself 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 No edema but does have cough and bloating At her last visit we started spironolactone 25mg and tried to start jardiance 10mg but she had issues with approval however was admitted to [place] in 2023 she did receive IV diuresis [...] : no shocks, 5 years of battery, [employer] single lead Monitors/restricts salt/fluid : not much [...] found for: "CHOL", "HDL", "LDLF", "TRIG" GETLABS(6M,2): Admission on 09/20/2024, Discharged on 09/23/2024 [...] Rate 09/21/2024 65 Atrial Rate 09/21/2024 65 MD Interval 09/21/2024 162 QRS Duration 09/21/2024 94 QT Interval 09/21/2024 412 QTC Calculation(Bazett) 09/21/2024 428 P Morganza 09/21/2024 -14 R Morganza 09/21/2024 266 T Morganza 09/21/2024 59 QRS Count 09/21/2024 11 Q Onset 09/21/2024 203 P Onset 09/21/2024 122 P Offset 09/21/2024 191 T Offset 09/21/2024 409 QTC Fredericia 09/21/2024 422 BNP 09/21/2024 >4,700 (H) Troponin I, High Sensiti* 09/21/2024 49 (H) Color, Urine 09/21/2024 Light-Yellow Appearance, Urine 09/21/2024 Clear Specific [place], Urine 09/21/2024 1.023 pH, Urine 09/21/2024 6.5 [...] Rate 08/23/2024 60 Atrial Rate 08/23/2024 60 MD Interval 08/23/2024 170 QRS Duration 08/23/2024 102 QT Interval 08/23/2024 436 QTC Calculation(Bazett) 08/23/2024 436 P Morganza 08/23/2024 17 R Morganza 08/23/2024 -73 T Morganza 08/23/2024 83 QRS Count 08/23/2024 10 Q [...] BNP -- >4,700* No results for input(s): "CHOL", "LDLF", "HDL", "TRIG" in the last 89434 hours. BNP Date Value Ref Range Status 09/21/2024 >4,700 (H) 0 - 99 pg/mL Final DIAGNOSTIC STUDIES REVIEWED: EKG: sinus rhythm with LAE bifid p wave, septal q Encounter Date: 09/20/24 ECG 12 lead Result Value Ventricular Rate 65 Atrial Rate 65 MD Interval 162 QRS Duration 94 QT Interval 412 QTC Calculation(Bazett) 428 P Morganza -14 R Morganza 266 T Morganza 59 QRS Count 11 Q Onset 203 [...] and clinical correlation Confirmed by Roselyn San ([id number]) on 09/25/2024 7:52:09 PM ECHO MICKI 07/25/24: [...] the prior echocardiographic exam performed on 04/25/2021 ([facility]). Mobile echodensity reported today as [...] lead vegetation this was extensively evaluated at [facility] appears to be due to fibrin [...] Center 11/21/2024 10:30 AM Radu Kay MD [id number] [place] Radu De Dios IV, MD Heart Failure, Heart Transplant and Mechanical Circulatory Support [1] Allergies Allergen Reactions Wheaton Anaphylaxis Shellfish Derived Anaphylaxis Tigan [Trimethobenzamide] Anaphylaxis [...] history on file. [7] Allergies Allergen Reactions Wheaton Anaphylaxis Shellfish Derived Anaphylaxis Tigan [Trimethobenzamide] Anaphylaxis [...] headaches. Hospitalizations: 09/20-09/23/24 ADHF documented in this [facility] Work Phone: [phone]) 315-205709-10-2025 Instructions* Patient Instructions* Radu Kay MD - 11/21/2024 10:30 AM EDT To reach Dr. Kay's office please call [phone] ([place]). . Call [phone] to schedule an appointment. You may also contact the HF RNs at [email or web address] Thank you for coming to your appointment today. If you have any questions or need cardiac medication refills, please call the Heart Failure Office at [phone] option 6. No changes today I will call your PCP about the Chantix Blood in 2 weeks unless get it from Return in 2 months documented in this [facility] Work Phone: 1(805) 361-310007-23-2025 [facility] note* Diagnosis Onset Date Resolution Status Admit Date HFrEF (heart failure with reduced ejection fraction) acute October 03, 2024 11:25am ICD (implantable cardioverter-defibrillator) in place chronic October 03, 2024 11:25am HFrEF (heart failure with reduced ejection fraction) acute Augus t 2024 3:17pm Pulmonary hypertension acute [place] 2024 3:17pm ICD (implantable cardioverter-defibrillator) in place chronic October 17, 2024 3:17pm Choledocholithiasis acute Septe mb2024 12:12pm History of biliary stent insertion acute November 23, 2024 12:12pm S/P ERCP acute November 12:12pm Diarrhea acute December 12 025 1:56pm Elevated lipase acute December 122024 1:56pm Pulmonary hypertension acute Oc tober 2024 1:56pm Chronic abdominal pain chronic Oc tober 2024 1:56pm Abdominal pain inactive December 1:56pm GERD (gastroesophageal reflu x disease) inactive December 12 1:56pm HFrEF (heart failure with reduced ejection fraction) acute Octob er 2024 11:19am ICD (implantable cardioverter-defibrillator) in place chronic December 26 11:19am Chest pain resolved December 28, 2024 10:50am [facility] Work Phone: 1(684) 237-843507-14-2025 Evaluation + Plan note* Assessment & Plan Note - Deepika Man, PharmD - 09/24/2024 3:12 PM EDTAssociated Problem(s): Cardiomyopathy, hypertrophic nonobstructive (Multi) Patient is currently on 2/4 GDMT Metoprolol XL 25mg every day Spironolactone 25mg every day (SCr 0.92, eGFR 78, K 3.8 (09/23/24)) START Jardiance 10mg every day for GDMT optimization Monitor BP, BMP, and HF symptoms. [facility] Work Phone: [phone]) 294-408907-14-2025 Miscellaneous Notes* Assessment & Plan Note - Deepika Man PharmD - 09/24/2024 3:12 PM EDTAssociated Problem(s): Cardiomyopathy, hypertrophic nonobstructive (Multi) Patient is currently on 2/4 GDMT Metoprolol XL 25mg every day Spironolactone 25mg every day (SCr 0.92, eGFR 78, K 3.8 (09/23/24)) START Jardiance 10mg every day for GDMT optimization Monitor BP, BMP, and HF symptoms. [facility] Work Phone: [phone]) 671-553807-14-2025 History of Present illness Narrative* Deepika Man [...] LIPASE 51 09/21/2024 No results found for: "TRIG", "CHOL", "LDLCALC", "HDL" No results found for: "BMCBC", "CBCDIF" PHARMACEUTICAL ASSESSMENT: MEDICATION RECONCILIATION Was a medication reconciliation completed at this visit? Yes Home Pharmacy Reviewed? Yes, describe: Tamra dang Changed: - prn lasix, sig for hyoscyamine, protonix BID, psyllium prn Removed: - doc/senna Drug Interactions? No Medication Documentation Review Audit Reviewed by Izzy DamianD (Pharmacist) on 09/24/24 at 1444 Medication Order Taking? Sig Documenting Provider Last Dose Status Discontinued 09/23/241755 Discontinued 09/23/241755 Discontinued 09/23/241755 albuterol (Ventolin HFA) 90 mcg/actuation inhaler [id number] Inhale 2 puffs every 6 hours if needed for wheezing. Historical Provider, Active ALPRAZolam (Xanax) 0.5 mg tablet [id number] Yes Take 1 tablet (0.5 mg) by mouth 2 times a day. Historical Provider, Active Discontinued 09/23/241755 Patient not taking: Discontinued 09/21/24 0919 Discontinued 09/23/241755 doxycycline (Vibramycin) 100 mg capsule [id number] Yes Take 1 capsule (100 mg) by mouth every 12 hours for 4 days. Take with a full glass of water and do not lie down for at least 30 minutes after. Rishabh El MD Active empagliflozin (Jardiance) 10 mg tablet [id number] Take 1 tablet (10 mg) by mouth once daily. Patient not taking: Reported on 09/24/2024 Radu Kay MD Active Discontinued 09/23/241755 Discontinued 09/23/241755 furosemide (Lasix) 20 mg tablet [id number] Yes Take 1 tablet (20 mg) by mouth once daily. Patient taking differently: Take 1 tablet (20 mg) by mouth once daily as needed (edema). Historical ProviderMD Active Discontinued 09/23/241755 Discontinued 09/23/241755 Discontinued 09/23/241755 Discontinued 09/23/241755 hyoscyamine (Anaspaz, Levsin) 0.125 mg tablet [id number] Yes 1 tablet (0.125 mg). Patient taking differently: Take 1 tablet (0.125 mg) by mouth once daily. Historical MD Mario Active Discontinued 09/23/241755 Discontinued 09/23/241755 Patient not taking: Discontinued 09/21/24918 Discontinued 09/23/241755 metoprolol succinate XL (Toprol-XL) 25 mg 24 hr tablet [id number] Yes Take 1 tablet (25 mg) by mouthonce daily. Do not crush or chew. Historical MD Mario Active Discontinued 09/23/241755 Discontinued 09/23/241755 pantoprazole (ProtoNix) 40 mg EC tablet [id number] Yes Take 1 tablet (40 mg) by mouth once daily in the morning. Take before meals. Do not crush, chew, or split. Patient taking differently: Take 1 tablet (40 mg) by mouth 2 times a day. Do not crush, chew, or split. Historical MD Mario Active Discontinued 09/23/241755 psyllium (Metamucil) 3.4 gram packet [id number] Yes Take 1 packet by mouth once daily. Patient taking differently: Take 1 packet by mouth once daily as needed (constipation). Historical ProviderMD Active Discontinued 09/23/241755 sennosides-docusate sodium (Pia-Colace) 8.6-50 mg tablet [id number] Take 1 tablet by mouth once daily at bedtime for 5 days. Patient not taking: Reported on 09/24/2024 Rishabh El MD Active spironolactone (Aldactone) 25 mg tablet [id number] Yes Take 1 tablet (25 mg) by mouth once daily. Radu Kay MD Active sucralfate (Carafate) 1 gram tablet [id number] Yes Take 1 tablet (1 g) by mouth 2 times a day. Historical ProviderMD Active Discontinued 09/23/241755 Discontinued 09/21/24 0923 zolpidem (Ambien) 10 mg tablet [id number] Yes Take 1 tablet (10 mg) by [...] 5 pounds in a week), contact their operator specialist communications - Answered all patient questions and concerns [...] 2024. For now sent patient's rx to [facility] for delivery and use of copay [...] follow up: 10/29/24 Type of Encounter: Alfonso Man PharmD Verbal consent to manage patient's drug therapy was obtained from the patient . They were informed they may decline to participate or withdraw from participation in pharmacy services at any time. Continue all meds under the continuation of care with the referring provider and clinical pharmacy team. [1] Allergies Allergen Reactions Wheaton Anaphylaxis Shellfish Derived Anaphylaxis Tigan [Trimethobenzamide] Anaphylaxis [...] tablet 100 mg 100 mg oral q12h [facility] Rishabh El MD 100 mg at 09/23/24830 [DISCONTINUED] empagliflozin (Jardiance) tablet 10 mg 10 mg oral Daily Boo Saeed MD 10 mg at 09/23/24829 [DISCONTINUED] enoxaparin (Lovenox) syringe 40 mg 40 mg subcutaneous Daily Rishabh El MD 40 mg at 09/23/24830 [DISCONTINUED] furosemide (Lasix) injection 40 mg 40 [...] mg 4 mg oral q8h PRN Boo Saede MD [DISCONTINUED] pantoprazole (ProtoNix) EC tablet 40 [...] 10 mg at 09/21/242131 [facility] Work Phone: 1(161) 139-363607-13-2025 Nurse Note* Kaela Trejo RN - 09/23/2024 3:48 PM EDT Patient with and given discharge instructions to go home . No questions verbalized. [facility]07-13-2025 Nurse Note* Kaela Trejo RN - 09/23/2024 3:48 PM EDT Patient with and given discharge instructions to go home . No questions verbalized. [facility] Work Phone: 1(217) 893-607007-13-2025 Plan of care note* Care Plan - [...] improvement of dyspnea/breathlessness this shift Outcome: Progressing [facility] Work Phone: [phone]) 810-887907-13-2025 Miscellaneous Notes* Care Plan - Kaela Trejo [...] is full code documented in this [facility] Work Phone: [phone]) 731-123107-13-2025 History of Present illness Narrative* Jaxson Osorio MD - 09/23/2024 1:10 PM EDT Subjective Data: Patient reports feeling well, no new adverse events overnight. Patient denies any chest pain, shortness of breath, palpitations, dizziness or syncope. Patient is hemodynamically stable. Overnight Events: No Objective Data: Last Recorded Vitals: Vitals: 09/22/24199909/23/24 0400 09/23/24 0607 09/23/24 08 BP: 113/71 127/88 120/78 BP Location: Right [...] 5.5 4.3 - 5.6 % Final Comment: [place] [employer] guidelines indicate that patients with HgbA1c in the range 5.7-6.4% are at increased risk for development of diabetes, and intervention by lifestyle modification may be beneficial. HgbA1c greater or equal to 6.5% is considered diagnostic of diabetes. 04/25/2021 08:44 AM 5.2 4.3 - 5.6 % Final Comment: [place] [employer] guidelines indicate that patients with [...] days. Ejection Fractions: No results found for: "EF" Cath: No results found for this or [...] leg abscess, migraine. She presented to ED [facility] on 09/21/2024 complaining of progressively worsening [...] Trop 48 - 49. - Patient looks "warm and wet". - EKG showed normal sinus rhythm with incomplete RBBB and no signs of acute ischemic changes. - Echo (07/2024 - [facility]): - The left ventricle is normal [...] the prior echocardiographic exam performed on 04/25/2021 ([facility]). Mobile echodensity reported today as [...] 5.5 4.3 - 5.6 % Final Comment: [place] [employer] guidelines indicate that patients with HgbA1c in the range 5.7-6.4% are at increased risk for development of diabetes, and intervention by lifestyle modification may be beneficial. HgbA1c greater or equal to 6.5% is considered diagnostic of diabetes. 04/25/2021 08:44 AM 5.2 4.3 - 5.6 % Final Comment: [place] [employer] guidelines indicate that patients with [...] days. Ejection Fractions: No results found for: "EF" Cath: No results found for this or [...] Normal mood and affect Assessment/Plan Mrs. Michelle Mithcell is a 44 y.o. current everyday smoker [...] leg abscess, migraine. She presented to ED [facility] on 09/21/2024 complaining of progressively worsening [...] Trop 48 - 49. - Patient looks "warm and wet". - EKG showed normal sinus rhythm with [...] the prior echocardiographic exam performed on 04/25/2021 ([facility]). Mobile echodensity reported today as [...] resp. rate 18, height 1.626 m (5' 4"), weight 54.2 kg (119 lb 7.8 oz), [...] kidney stones hematuria. COMPARISON: 09/21/2024 ACCESSION NUMBER(S): [id number] ORDERING CLINICIAN: RISHABH EL TECHNIQUE: CT of [...] Giacomo Soriano 09/22/2024 1:15 PM Dictation workstation: [id number] CT abdomen pelvis w IV contrast Result Date: 09/21/2024 Interpreted By: Deondre Davila, STUDY: CT ABDOMEN PELVIS W IV CONTRAST; 09/21/2024 1:33 am INDICATION: Signs/Symptoms:abd pain. COMPARISON: Same day CTA of the chest. ACCESSION NUMBER(S): [id number] ORDERING CLINICIAN: ROCKY EVERETT TECHNIQUE: Contiguous axial [...] Deondre Davila 09/21/2024 1:44 AM Dictation workstation: [id number] CT angio chest for pulmonary embolism Result Date: 09/21/2024 Interpreted By: Deondre Davila, STUDY: CT ANGIO CHEST FOR PULMONARY EMBOLISM; 09/21/2024 1:31am INDICATION: Signs/Symptoms:sob - hx of PE - not anticoagulated. COMPARISON: None ACCESSION NUMBER(S): [id number] ORDERING CLINICIAN: ROCKY EVERETT TECHNIQUE: Helical data [...] along the fissures in the lower lobes, gyjxh-gnspdsp-kgdh-left. 3. Mild cardiomegaly with some reflux of contrast into the hepatic veins and IVC, findings that may be seen in the setting of early right heart strain. Correlate with echocardiogram. MACRO: None Signed by: Deondre Davila 09/21/2024 1:38 AM Dictation workstation: [id number] Scheduled medications Scheduled Medications[1] Continuous medications Continuous [...] Follow clinically Follow cardiology, echocardiogram Continue with Pradipix 40 mg IV twice a day and [...] were you homeless or living in a fdc (including now)? N Transportation Needs In the [...] out to CT if needs should change. [facility] . ADOD .Care Transitions to follow. Marilee Jain BSN/RN-TCC documented in this [facility] Work Phone: 1(216) 321-202007-13-2025 Hospital course Narrative* Rishabh El MD - [...] Pending Labs Order Current Status Extra Urine Price Tube Collected (09/21/245) Procalcitonin In process Urinalysis [...] Center 09/24/2024 2:40 PM Deepika Man, PharmD [id number] [facility] 11/21/2024 10:30 AM Radu Kay MD [id number] [facility] Time to dc > 35 minutes Rishabh El MD documented in this [facility] Work Phone: 1(378) 244-308707-13-2025 Plan of care note* Care Plan - Anisha Sheldon RN - 09/23/2024 5:20 AM EDT The clinical goals for the shift include pain control Over the shift, the patient made progress toward pain control with PRN pain medication. Rates lowest pain a 5/10. [facility]07-12-2025 Evaluation + Plan note* Assessment & [...] prophylaxis with Lovenox Patient is full code [facility] Work Phone: [phone]) 941-821507-12-2025 Plan of care note* Care Plan - [...] Improved urinary output this shift Outcome: Progressing [facility] Work Phone: [phone]) 711-390007-11-2025 traffic manager Note* Significant Event - Rishabh El MD - 09/21/2024 5:02 PM EDT Patient was seen and examined, admitted overnight. Reviewed chart and agree with assessment plan [facility] Work Phone: 1(500) 614-184407-11-2025 Consult note* Jaxson Osorio MD - 09/21/2024 [...] leg abscess, migraine. She presented to ED [facility] on 09/21/2024 complaining of progressively worsening [...] 5.5 4.3 - 5.6 % Final Comment: [place] [employer] guidelines indicate that patients with HgbA1c in the range 5.7-6.4% are at increased risk for development of diabetes, and intervention by lifestyle modification may be beneficial. HgbA1c greater or equal to 6.5% is considered diagnostic of diabetes. 04/25/2021 08:44 AM 5.2 4.3 - 5.6 % Final Comment: [place] [employer] guidelines indicate that patients with [...] days. Ejection Fractions: No results found for: "EF" Cath: No results found for this or [...] drug use. Family History: Family History[1] Allergies: Wheaton, Shellfish derived, Tigan [trimethobenzamide], Vicodin [hydrocodone- acetaminophen], [...] leg abscess, migraine. She presented to ED [facility] on 09/21/2024 complaining of progressively worsening [...] Trop 48 - 49. - Patient looks "warm and wet". - EKG showed normal sinus rhythm with incomplete RBBB and no signs of acute ischemic changes. - Echo (07/2024 - [facility]): - The left ventricle is normal [...] the prior echocardiographic exam performed on 04/25/2021 ([facility]). Mobile echodensity reported today as [...] [4] Continuous Medications Medication Dose Last Rate [facility] Work Phone: 1(402) 350-509507-11-2025 Consult note* Jaxson Osorio MD - 09/21/2024 [...] leg abscess, migraine. She presented to ED [facility] on 09/21/2024 complaining of progressively worsening [...] 5.5 4.3 - 5.6 % Final Comment: [place] [employer] guidelines indicate that patients with HgbA1c in the range 5.7-6.4% are at increased risk for development of diabetes, and intervention by lifestyle modification may be beneficial. HgbA1c greater or equal to 6.5% is considered diagnostic of diabetes. 04/25/2021 08:44 AM 5.2 4.3 - 5.6 % Final Comment: [place] [employer] guidelines indicate that patients with [...] days. Ejection Fractions: No results found for: "EF" Cath: No results found for this or [...] drug use. Family History: Family History[1] Allergies: Wheaton, Shellfish derived, Tigan [trimethobenzamide], Vicodin [hydrocodone- acetaminophen], [...] leg abscess, migraine. She presented to ED [facility] on 09/21/2024 complaining of progressively worsening [...] Trop 48 - 49. - Patient looks "warm and wet". - EKG showed normal sinus rhythm with incomplete RBBB and no signs of acute ischemic changes. - Echo (07/2024 - [facility]): - The left ventricle is normal [...] the prior echocardiographic exam performed on 04/25/2021 ([facility]). Mobile echodensity reported today as [...] Medication Dose Last Rate [facility] 1(603) 589-962407-11-2025 Plan of care note* Care Plan - [...] improvement of dyspnea/breathlessness this shift Outcome: Progressing [facility]07-11-2025 Plan of care note* Care Plan - [...] appropriate for maintaining nutritional needs Outcome: Progressing [facility] Work Phone: [phone]) 144-794707-11-2025 Evaluation + Plan note* Assessment & Plan [...] for DVT prophylaxis Patient is full code [facility] Work Phone: 1(314) 436-657207-11-2025 History and physical note* Boo Saeed MD [...] zolpidem (AMBIEN) 10 mg, Nightly PRN Allergies Wheaton, Shellfish derived, Tigan [trimethobenzamide], Vicodin [hydrocodone- acetaminophen], Azithromycin, Morphine, Prozac [fluoxetine], Ultram [tramadol], and Codeine Last Recorded Vitals Blood pressure (!) 137/95, pulse 57, temperature 36.8 C (98.2 F), temperature source Temporal, resp. rate 18, height 1.626 m (5' 4"), weight 59.1 kg (130 lb 4.7 oz), [...] Yellow, Dark-Yellow Appearance, Urine Clear Clear Specific [place], Urine 1.023 1.005 - 1.035 pH, Urine [...] Deondre Davila 09/21/2024 1:44 AM Dictation workstation: [id number] CT angio chest for pulmonary embolism Result [...] along the fissures in the lower lobes, oabos-iuuyuyv-jwij-left. 3. Mild cardiomegaly with some reflux of contrast into the hepatic veins and IVC, findings that may be seen in the setting of early right heart strain. Correlate with echocardiogram. MACRO: None Signed by: Deondre Davila 09/21/2024 1:38 AM Dictation workstation: [id number] Cardiology, Vascular, and Other Imaging No other [...] file. [3] No family history on file. [facility] Work Phone: 1(159) [phone] History and physical note* Boo Saeed MD [...] zolpidem (AMBIEN) 10 mg, Nightly PRN Allergies Wheaton, Shellfish derived, Tigan [trimethobenzamide], Vicodin [hydrocodone- acetaminophen], Azithromycin, Morphine, Prozac [fluoxetine], Ultram [tramadol], and Codeine Last Recorded Vitals Blood pressure (!) 137/95, pulse 57, temperature 36.8 C (98.2 F), temperature source Temporal, resp. rate 18, height 1.626 m (5' 4"), weight 59.1 kg (130 lb 4.7 oz), [...] Yellow, Dark-Yellow Appearance, Urine Clear Clear Specific [place], Urine 1.023 1.005 - 1.035 pH, Urine [...] Deondre Davila 09/21/2024 1:44 AM Dictation workstation: [id number] CT angio chest for pulmonary embolism Result [...] along the fissures in the lower lobes, qniio-iiltabl-iccu-left. 3. Mild cardiomegaly with some reflux of contrast into the hepatic veins and IVC, findings that may be seen in the setting of early right heart strain. Correlate with echocardiogram. MACRO: None Signed by: Deondre Davila 09/21/2024 1:38 AM Dictation workstation: [id number] Cardiology, Vascular, and Other Imaging No other [...] history on file. documented in this [facility] Work Phone: [phone]) 149-834607-10-2025 Physician Emergency department Note* Rocky Everett DO - 09/20/2024 11:58 PM EDT HPI Chief Complaint Patient presents with Abdominal Pain Pt states she started gaining water weight on Saturday, was put Lasix Tuesday, she has gained 10lbs since Tuesday. Mid abd pain worse since this AM. Hx of cardiomyopathy, liver disease, and pancreatitis. Sees [place] in [facility] and was told to come to ED [...] to the emergency room by her established operator specialist communications. History provided by: Patient automotive parts interpreter used: No Patient History Medical History[1] [...] on file Rocky Everett DO 09/21/24 0250 [facility] Work Phone: 1([phone]) 136-302607-10-2025 Emergency department Note* Rocky Everett DO - 09/20/2024 11:58 PM EDT HPI Chief Complaint Patient presents with Abdominal Pain Pt states she started gaining water weight on Tuesday, was put Lasix Tuesday, she has gained 10lbs since Tuesday. Mid abd pain worse since this AM. Hx of cardiomyopathy, liver disease, and pancreatitis. Sees [place] in [facility] and was told to come to ED [...] to the emergency room by her established operator specialist communications. History provided by: Patient automotive parts interpreter used: No Patient History Medical History[1] [...] DO 09/21/24 0250 documented in this [facility] Work Phone: 1(485) 516-256307-04-2025 [facility]07-03-2025 Progress note Author Emerson Sierra [facility] Note Date/Time September 13, 2024 4:14p [facility] Medical Records Department [address] [place] [address] Progress Note - Hospitalist 09/13/24 1612 MR#: [id number] Acct: [id number] Name: MICHELLE MITCHELL Rep #:[id number] : 1980 43 From: Emerson Arciniega PCP: Dr. Dex Wilkinson MD Status:A DM KISHA Location: [facility] [id number] Reason for Visit Reason for Visit: Diagnoses [...] 100 Lab / Micro Data 09/13/24 05:04 07/03/25 05:04 Labs: Laboratory Results - last 24 hr 09/12/24 05:36: GGT 39 09/13/24 05:04: WBC 19.2 H, RBC 4.14 L, Hgb 12.7, Hct 41.1, MCV 99.3 H, MCH 30.7, MCHC 30.9 L, RDW Std Deviation 52.7 H, RDW Coeff of Damon 14.5, Plt Count 359, MPV 10.5, Immature Gran % (Auto) 0.900, Neut % (Auto) 85.8 H, Lymph % (Auto) 6.3 L, [place] % (Auto) 6.7, Eos % (Auto) 0.1, [...] volume of pelvic free fluid. Reading Location: [id number] Physical Exam Narrative Seen and examined In [...] pain. No fever or chills. 1. Intractable kaxhc-bp-zenuvtm abdominal pain after recent failed celiac plexus block - Admit to general medical floor under observation status. GI consulted. Change PPI IV pantoprazole once daily. Exact etiology of pain not clear. 09/13: Advised follow-up with the pain corporate law specialist Dr. Dennison. Patient got relief with [...] follow-up instructions. Charges/Coding Visit Charges Inpatient E&M: 20288 Subs Hosp L2 09/13/24 1614 <Electronically signed by Emerson Sierra MD> Cosigner Signature (if applicable): CC: ~ Signed [facility] Work Phone: 1([phone]) 864-704307-03-2025 Discharge summary Author Emerson Sierra [facility] Note Date/Time September 13, 2024 1:46p m [facility] Medical Records Department [address] [place] [address] Discharge Summary 09/13/24 1237 MR#: [id number] Acct: [id number] Name: MICHELLE MITCHELL Rep #:[id number] : 1980 43 From: Emerson Arciniega PCP: Dr. Dex Wilkinson MD Status:A DM KISHA Location: [facility] [id number] Providers Date of Admission: 09/11/24 Date of Discharge: 09/13/24 Primary Care Physician: Dr. Dex Wilkinson MD Consultations 09/12/24 00:20 Consult: Gastroenterology Routine Consulting Provider: [facility] Reason for Consult: Intractable abdominal pain [...] pain. No fever or chills. 1. Intractable pshli-vi-mnwnzfx abdominal pain after recent failed celiac plexus block - Admit to general medical floor under observation status. GI consulted. Change PPI IV pantoprazole once daily. Exact etiology of pain not clear. 09/13: Advised follow-up with the pain corporate law specialist Dr. Dennison. Patient got relief with [...] 85.8 H, Lymph % (Auto) 6.3 L, [place] % (Auto) 6.7, Eos % (Auto) 0.1, [...] volume of pelvic free fluid. Reading Location: [id number] D/C Instructions Discharge Diet: Light diet - [...] Self Care Charges/Coding Visit Charges Inpatient E&M: 39728 Disch Hosp >30min 09/13/24 1242 <Electronically signed [...] MD; Dr. Emerson Sierra MD ~* Signed [facility] Work Phone: 1([phone]) 658-808807-03-2025 Discharge summary Author Emerson Sierra [facility] Note Date/Time September 13, 2024 12:37 pm [facility] Medical Records Department [address] [facility] [place] [address] Instructions for Home/Discharge Instructions 09/13/24 1219 MR#: [id number] Acct: [id number] Name: ALBAMICHELLE AWAD Angelo Rep #:[id number] : 1980 43 From: Emerson Arciniega [...] DO; Dr. Dex Wilkinson MD ~ Signed [facility] Work Phone: 1(138) 471-280907-03-2025 [facility]07-02-[address] [facility]07-02-2025 Consult note Author Quang Myles [facility] Note Date/Time September 12, 2024 6:39p m [facility] Medical Records Department [address] [place] [address] Consultation - GI 09/12/24 1834 MR#: [id number] Acct: [id number] Name: MICHELLE MITCHELL Rep #:[id number] : 1980 43 From: Quang Myles DO PCP: Dr. Dex Wilkinson MD Status:A DM KISHA Location: [facility] NW303-5 HPI Consult Data Date of Consult: 09/12/24 [...] has come back down with fluid administration. [facility] Medical History Dilated pancreatic duct Abdominal pain [...] pain Pulmonary embolism Endometrial cancer Cervical cancer detention current use of 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 Ovarian cancer GERD [...] 94.8 H, Lymph % (Auto) 3.5 L, [place] % (Auto) 0.7, Eos % (Auto) 0.1, [...] Sl. Cloudy, Urine pH 7.0, Ur Specific [place] 1.010, Urine Protein 100 H, Urine Glucose [...] 94.7 H, Lymph % (Auto) 3.6 L, [place] % (Auto) 0.7, Eos % (Auto) 0.1, [...] 94.8 H, Lymph % (Auto) 2.8 L, [place] % (Auto) 1.7, Eos % (Auto) 0.0, [...] disease. Correlate for possible hepatitis. Reading Location: [place] [address] Assessment & Plan Assessment/Plan (1) Intractable abdominal [...] biliary stents. Charges/Coding Visit Charges Inpatient E&M: 51319 Init Hosp L3 09/12/24 3324 <Electronically signed by Quang Friend DO> Cosigner Signature (if applicable): CC: Dr. Dex Wilkinson MD~ Signed [facility] Work Phone: 1(407) 258-109507-02-2025 Progress note Author Emerson Sierra [facility] Note Date/Time September 12, 2024 11:29 am [facility] Medical Records Department [address] [place] [address] Progress Note - Hospitalist 09/12/24 0958 MR#: [id number] Acct: [id number] Name: MICHELLE MITCHELL Rep #:[id number] : 1980 43 From: Emerson Arciniega PCP: Dr. Dex Wilkinson MD Status:A DM KISHA Location: MS3 [id number] Reason for Visit Reason for Visit: Diagnoses [...] 94.8 H, Lymph % (Auto) 3.5 L, [place] % (Auto) 0.7, Eos % (Auto) 0.1, [...] Sl. Cloudy, Urine pH 7.0, Ur Specific [place] 1.010, Urine Protein 100 H, Urine Glucose [...] 94.7 H, Lymph % (Auto) 3.6 L, [place] % (Auto) 0.7, Eos % (Auto) 0.1, [...] 94.8 H, Lymph % (Auto) 2.8 L, [place] % (Auto) 1.7, Eos % (Auto) 0.0, [...] disease. Correlate for possible hepatitis. Reading Location: [place] [address] Physical Exam Narrative Seen and examined Patient [...] pain. No fever or chills. 1. Intractable nhsku-be-tbgkoqj abdominal pain after recent failed celiac plexus [...] plus SCD's. Charges/Coding Visit Charges Inpatient E&M: 14704 Subs Hosp L2 09/12/24 1129 <Electronically signed by Emerson iSerra MD> Cosigner Signature (if applicable): CC: ~ Signed [facility] Work Phone: 1(571) 496-967407-02-2025 History and physical note Author Sergio Whalen [facility] Note Date/Time September 12, 2024 6:06a m [facility] Medical Records Department [address] [place] [address] H&P Exam - Hospitalist 09/11/24 2319 MR#: [id number] Acct: [id number] Name: ALBADELMIMICHELLE Rep #:[id number] : 1980 43 From: Sergio Giles DO PCP: Dr. Dex Wilkinson MD Status:A DM IN Location: MS3 [id number] HPI - General General Date of Admission: 09/11/24 Date of Service: 09/11/24 Chief Complaint: Abdominal Pain and Nausea. ARPITA MITCHELL, is a 43 F with a past medical history of former tobacco abuse (quit ~9 months ago), hypertrophic cardiomyopathy; s/p PPM/AICD (2017), [...] Dr. Myles of gastroenterology who presents to [facility] ER complaining of worsening abdominal pain. Ms. [...] expected to be less than 2 midnights. 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 Cloudy, Urine pH 7.0, Ur Specific [place] 1.010, Urine Protein 100 H, Urine Glucose [...] 94.7 H, Lymph % (Auto) 3.6 L, [place] % (Auto) 0.7, Eos % (Auto) 0.1, [...] disease. Correlate for possible hepatitis. Reading Location: [place] [address] Assessment & Plan Assessment/Plan (1) Intractable abdominal pain: (2) Chronic abdominal pain: (3) History of celiac plexus block: (4) Elevated lipase: (5) Leukocytosis: QUALIFIERS: Leukocytosis type: unspecified Qualified Code(s): D72.829 - Elevated white blood cell count, unspecified (6) History of biliary stent insertion: (7) History of insertion of pancreatic stent: PLAN: Plan 1. Intractable fqfto-pv-zplyqak abdominal pain after recent failed celiac plexus [...] 70 minutes. Charges/Coding Visit Charges OBSV E&M: 12807 Observ/hosp same date L2 09/12/24 0606 <Electronically signed by Sergio Umaña DO> Cosigner Signature (if applicable): CC: Dr. Sergio Umaña DO; Dr. Dex Wilkinson MD~ Signed [facility] Work Phone: 1(915) 391-158007-02-2025 Discharge summary Author Gage Sharma [facility] Note Date/Time September 12, 2024 1:01a m [facility] Medical Records Department [address] [place] [address] Emergency Department Summary 09/11/24 MR#: [id number] Acct: [id number] Name: MICHELLE MITCHELL Rep #:[id number] : 1980 43 From: Gage Lopez ggett DO PCP: Dr. Dex Wilkinson MD Status:A DM IN Location: ND3 [id number] HPI History of Present Illness Chief Complaint: [...] oriented, grossly intact, sensation intact Psych: Cooperative [facility] Medical History Hypertension Severe pulmonary hypertension History of hypertrophic cardiomyopathy Acute systolic congestive heart failure, NYHA class 3 Leukocytosis Cancer History of steroid therapy Easy bruising Migraine headache History of hiatal hernia History of ulceration History of IBS Abdominal bloating Stomach pain Nausea & vomiting Shortness of breath on exertion Smoker History of echocardiogram Chest pain Pulmonary embolism Endometrial cancer Cervical cancer detention current use of 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 Ovarian cancer GERD [...] Lymph % (Auto) 3.5 L 3.6 L [place] % (Auto) 0.7 0.7 Eos % (Auto) [...] Sl. Cloudy Urine pH 7.0 Ur Specific [place] 1.010 Urine Protein 100 H Urine Glucose [...] disease. Correlate for possible hepatitis. Reading Location: [place] [address] Discharge Plan Disposition Disposition: Acute Care Hospital [facility] Discharge Date/Time: 09/12/24 00:11 What to do if you have Problems For any increased pain, shortness of breath, bleeding, nausea or vomiting, chestpain, or any unexpected problems, contact your Primary Care Provider. Call [facility] ([phone]) or report to the closest Emergency Room. Call 911 if necessary. 09/12/24 0101 <Electronically signed by Gage Sharma DO> Cosigner Signature (if applicable): CC: Dr. Dex Wilkinson MD ~ Signed [facility] Work Phone: 1(165) 442-698007-02-2025 Evaluation note* Diagnosis Onset Date Resolution Status Admit Date Elevated lipase acute September 11, 2024 11:43pm [...] October 17, 2024 3:17pm Choledocholithiasis acute Septe mb2024 12:12pm History of biliary stent insertion acute November 23, 2024 12:12pm S/P ERCP acute November 12:12pm Diarrhea acute December 12, 2 025 1:56pm Elevated lipase acute December 122024 1:56pm Pulmonary hypertension acute Oc tober 2024 1:56pm Chronic abdominal pain chronic Oc tober 2024 1:56pm Abdominal pain inactive December 1:56pm GERD (gastroesophageal reflu x disease) inactive December 12 1:56pm HFrEF (heart failure with reduced ejection fraction) acute Octob er 2024 11:19am ICD (implantable cardioverter-defibrillator) in place chronic December 26 11:19am Chest pain resolved December 28, 2024 10:50am [facility] Work Phone: 1(330) 772-472107-01-[address] [facility]06-17-[address] [facility]06-13-2025 Discharge summary Author Taylor [facility] Note Date/Time August 24, 2024 3:36 pm [facility] Medical Records Department [address] [place] [address] Instructions for Home/Discharge Instructions 08/24/24 1312 MR#: [id number] Acct: [id number] Name: MICHELLE MITCHELL Rep #:[id number] : 1980 43 From: Taylor Tejeda [...] DO; Dr. Dex Wilkinson MD ~ Signed [facility] Work Phone: 1(481) 796-450806-13-2025 [facility]06-12-2025 Progress note Author Quang Myles [facility] Note Date/Time August 23, 2024 8:09 pm [facility] Medical Records Department [address] [place] [address] Progress Note 08/23/242003 MR#: [id number] Acct: [id number] Name: MICHELLE MITCHELL Rep #:[id number] : 1980 43 From: Quang Myles DO PCP: Dr. Dex Wilkinson MD Status:A DM IN Location: [facility] VUI892- 1 Progress Note Patient saying that she [...] is a 43-year-old female who presented to [facility] ED on 08/20/2024 with worsening RUQ abdominal pain. Worsening RUQ abdominal pain with elevated LFTs ? Admit under inpatient status to PCU. GI consulted. Presented with worsening abdominal pain and uptrending LFTs. Prior CT abdomen pelvis showed hepatomegalywith double duct sign. Liver ultrasound on this admission again showed hepatomegaly with pancreatic duct dilation. 08/23/2024-Findings: The marketing developer film was normal. The esophagus was successfully [...] by Quang Myles DO> Quang Myles DO Costraer Signature (if applicable): CC: ~ Signed ADDENDUM by Quang Myles DO on 08/23/24 at 2007 Visit Charges Inpatient E&M: 17370 Subs Hosp 08/23/242007 <Electronically signed by Quang arciniega DO> Date _ Quang Myles DO Cosigner Signature (if applicable): Date cc: ~* Signed [facility] Work Phone: 1(984) 391-605806-12-[address] [facility]06-12-2025 Progress note Author Taylor Tejeda [facility] Note Date/Time August 23, 2024 5:29 pm [facility] Medical Records Department [address] [place] [address] Progress Note 08/23/24 1725 MR#: [id number] Acct: [id number] Name: ALBADELMIMICHELLE Rep #:[id number] : 1980 43 From: Taylor Tejeda MD PCP: Dr. Dex Wilkinson MD Status:A DM IN Location: [place] [address] Subjective Subjective Patient seen and examined. He [...] (Auto) 80.5 H, Lymph % (Auto) 10.7 L,[place]ow[place] % (Auto) 7.0, Eos % (Auto) 1.0, [...] * Has ICD in place. Follows with [facility] cardiology. * 2D echo showed EF of 35% with mild concentric left ventricular hypertrophy and global ventricular hypokinesis with stage II diastolic dysfunction. * Chest x-ray showed no evidence of volume overload. On spironolactone and metoprolol #Anxiety and insomnia: On alprazolam and zolpidem GERD: PPI DVT prophylaxis: Lovenox Charges/Coding Visit Charges Inpatient E&M: 27334 Subs Hosp L2 08/23/24 1729 <Electronically signed by Taylor Tejeda MD> Taylor Tejeda MD Cosigner Signature (if applicable): CC: ~ Signed [facility] Work Phone: 1(452) 923-956406-12-[address] [facility]06-11-2025 Progress note Author Taylor [facility] Note Date/Time August 22, 2024 5:59 pm [facility] Medical Records Department [address] [place] [address] Progress Note 08/22/24 1211 MR#: [id number] Acct: [id number] Name: MICHELLE MITCHELL Angelo Rep #:[id number] : 1980 43 From: Taylor Tejeda MD PCP: Dr. Dex Wilkinson MD Status:A DM IN Location: [place] [address] Subjective Subjective Patient seen and examined. She [...] (Auto) 77.7 H, Lymph % (Auto) 12.5 L,[place] % (Auto) 8.0, Eos % (Auto) 0.8, [...] 08/21/24 18:30 IMPRESSION: As above. Reading Location: [place] [address] Physical Exam Const alert and oriented x3 [...] * Has ICD in place. Follows with [facility] cardiology. * 2D echo showed EF of 35% with mild concentric left ventricular hypertrophy and global ventricular hypokinesis with stage II diastolic dysfunction. * Chest x-ray showed no evidence of volume overload. On spironolactone and metoprolol #Anxiety and insomnia: On alprazolam and zolpidem GERD: PPI DVT prophylaxis: Lovenox Charges/Coding Visit Charges Inpatient E&M: 60239 Subs Hosp L2 08/22/24 4557 <Electronically signed by Taylor Tejeda MD> Taylor Tejeda MD Cosigner Signature (if applicable): CC: ~ Signed [facility] Work Phone: 1(793) 388-372406-11-2025 Consult note Author Tony Dumont [facility] Note Date/Time August 22, 2024 6:53 am [facility] Medical Records Department [address] [place] [address] Anesthesia Postop Eval II 08/22/24 0653 MR#: [id number] Acct: [id number] Name: MICHELLE MITCHELL Rep #:[id number] : 1980 43 From: Tony Dumont MD PCP: Dr. Dex Wilkinson MD Status:A DM IN Y Race: C Location: [place] [address] 2-1 Anesthesia Postop Eval I Sum Postop [...] MD Cosigner Signature: Date CC: ~ Signed [facility] Work Phone: 1(889) 535-290606-10-2025 Consult note Author Tony Dumont [facility] Note Date/Time August 21, 2024 7:28 pm [facility] Medical Records Department [address] [place] [address] Anesthesia Postop Eval I 08/21/241926 MR#: [id number] Acct: [id number] Name: MICHELLE MITCHELL Rep #:[id number] : 1980 43 From: Tony Dumont MD PCP: Dr. Dex Wilkinson MD Status:A DM IN Y Race: C Location: [place] [address] 2-1 Anesthesia: Postop Eval I Current Vital [...] MD > Date _ Tony Dumont MD [facility] Signature: Date CC: ~ Signed [facility] Work Phone: 1(138) 950-968406-10-[address] [facility]06-10-2025 Progress note Author [facility] Note Date/Time August 21, 2024 5:30 pm [facility] Medical Records Department [address] [place] [address] Progress Note 08/21/241717 MR#: [id number] Acct: [id number] Name: MICHELLE MICTHELL Rep #:[id number] : 1980 43 From: Taylor Tejeda MD PCP: Dr. Dex Wilkinson MD Status:A DM IN Location: [place] [address]- 1 Subjective Subjective Patient seen and examined. She [...] * Has ICD in place. Follows with [facility] cardiology. * 2D echo showed EF of 35% with mild concentric left ventricular hypertrophy and global ventricular hypokinesis with stage II diastolic dysfunction. * Chest x-ray showed no evidence of volume overload. On spironolactone and metoprolol #Anxiety and insomnia: On alprazolam and zolpidem GERD: PPI DVT prophylaxis: Lovenox Charges/Coding Visit Charges Inpatient E&M: 85178 Subs Hosp L3 08/21/24 1730 <Electronically signed by Taylor Tejeda MD> Taylor Tejeda MD Cosigner Signature (if applicable): CC: ~ Signed [facility] Work Phone: 1(998) 923-301406-10-2025 Progress note Author Quang Myles [facility] Note Date/Time August 21, 2024 5:27 pm [facility] Medical Records Department [address] [place] [address] Progress Note 08/21/24 1724 MR#: [id number] Acct: [id number] Name: MICHELLE MITCHELL Rep #:[id number] : 1980 43 From: Quang Myles DO PCP: Dr. Dex Wilkinson MD Status:A DM IN Location: [facility]- 1 Progress Note Patient still complains of [...] ASA of 3. Visit Charges Inpatient E&M: 75339 Subs Hosp L3 08/21/241726 <Electronically signed by Quang Myles DO> Quang Eugene Signature (if applicable): CC: ~ Signed [facility] Work Phone: [phone]) 457-874706-10-[address] [facility] 08-21-2024 Consult note Author Tony Dumont [facility] Note Date/Time August 21, 2024 4:55 pm [facility] Medical Records Department [address] [place] [address] Pre-Anesthesia Evaluation 08/21/24 1654 MR#: [id number] Acct: [id number] Name: MICHELLE MITCHELL Rep #:[id number] : 1980 43 From: Tony Dumont MD PCP: Dr. Dex Wilkinson MD Status:A DM IN Y Race: C Location: [place] [address] 2-1 ASA Classification* ASA Classification ASA Classification: [...] Procedure(s): ERCP Anesthesia History Anesthesia History - basket grader: Anesthesia History - basket grader Hx Hospitalization Yes: 05/2024 ABSCESS TURNED 07/10/24 [...] take am of surgery PONV PONV - basket grader: PONV - basket grader Female HX of Motion Sickness HX of N/V After Surgery Non-Smoker Duration of Surgery greater than 60 minutes Number of Risk Factors PONV Score Height & Weight Height & Weight: Anesthesia: Height & Weight Height 5 ft 4 in 08/21/24 16:39 Weight: 57.4 kg 08/21/24 16:39 Body Mass Index (BMI) 21.7 08/21/24 16:39 Respiratory Assessment Respiratory Assessment - basket grader: Respiratory Tract Infection Hx - basket grader Hx Respiratory Tract Infection No 08/20/24 21:50 STOP Sleep Apnea STOP Sleep Apnea - basket grader: STOP Sleep Apnea - basket grader Hx Hypertension No 08/20/24 18:53 Hx Sleep [...] Tobacco Use History Tobacco Use History - basket grader: Tobacco Use History - basket grader Tobacco Use Smoking Status Current every day smoker 08/20/24 18:53 Hx Tobacco Use Yes 08/20/24 18:53 Years Smoking Packs Smoked per Day Smoking Cessation Date was within the last 15 years Hx Smoking Cessation Date Hx Smoking Cessation No 08/20/24 18:53 Counseling Hematologic Medial History Hematologic Hx - basket grader: 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 Hx of Blood Transfusion No 08/20/24 [...] confused, unrespo /Reproduction History /Reproductive History - basket grader: /Reproductive Hx- basket grader Hx Now No 08/21/24 08:33 Gestational Age [...] 0.5 Mg Tablet PO Not Given BID [facility] Enoxaparin Sodium 40 mg 08/21/24 10:00 08/21/24 11:17 Enoxaparin 40 Mg/0.4 Ml Syringe SC Not Given DAILY PIA Hydromorphone HCl 0.5 mg 08/20/24 19:00 08/21/24 13:28 Hydromorphone 0.5 Mg/0.5 Ml Syringe IV 0.5 mg Q4H PRN PRN Administration Pain Score 6-10 Sodium Chloride 250 mls @ 15 mls/hr 08/20/24 19:01 IV .[id number] PRN Saline Flush Sodium Chloride 250 mls @ 15 mls/hr 08/20/24 19:01 IV .[id number] PRN Additional IVPB Infusion Lactated Ringer's 1,000 mls @ 15 mls/hr 08/21/24 16:45 08/21/24 16:47 IV 15 mls/hr .Q48H PIA Administration Iopamidol 0 ml 08/21/24 08:45 Contrast Allergy Safety Check IV X1 [facility] Meloxicam 15 mg 08/21/24 10:00 08/21/24 11:17 Meloxicam 15 Mg Tablet PO Not Given DAILY [facility] Metoprolol Succinate 25 mg 08/21/24 10:00 08/21/24 11:18 Metoprolol(Xl)Succ 25 Mg Tablet PO Not Given DAILY [facility] Protocol Ondansetron HCl 4 mg 08/20/24 19:00 Ondansetron 4 Mg/2 Ml Vial IV Q8H PRN PRN NAUSEA/VOMITING Oxycodone HCl 5 mg 08/20/24 19:00 08/21/24 06:37 Oxycodone 5 Mg Tablet PO 5 mg Q4H PRN PRN Administration Pain Score 4-10 Pantoprazole Sodium 40 mg 08/20/24 22:00 08/21/24 11:18 Pantoprazole Sodium 40 Mg Tablet PO Not Given BID [facility] Scopolamine HBr 1 patch 08/21/24 10:00 08/21/24 13:23 Scopolamine 1mg/72hr Patch TD Not Given Q3D [facility] Sodium Chloride 10 - 40 ml 08/20/24 19:01 08/21/24 09:14 0.9% Saline Lock 10 Ml Syringe IV 10 ml UD PRN Administration SALINE FLUSH Spironolactone 25 mg 08/21/24 10:00 08/21/24 11:17 Spironolactone 25 Mg Tablet PO Not Given DAILY [facility] Protocol Sucralfate 1 gm 08/21/24 08:00 08/21/24 09:13 Sucralfate 1 Gm Tablet [facility] Z[facility] Tartrate 10 mg 08/20/24 22:00 [...] pain Pulmonary embolism Endometrial cancer Cervical cancer detention current use of 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 Ovarian cancer GERD [...] MD Cosigner Signature: Date CC: ~ Signed [facility] Work Phone: [phone]) 117-817106-10-2025 Discharge summary Author Simona Fernandze [facility] Note Date/Time August 21, 2024 12:2 9am [facility] Medical Records Department [address] [place] [address] Emergency Department Summary 08/20/24 MR#: [id number] Acct: [id number] Name: MICHELLE MITCHELL Rep #:[id number] : 1980 43 From: Simona Jama PCP: Dr. Dex Wilkinson MD Status:A DM IN Location: [address] History of Present Illness Chief Complaint: [...] sphincter of Oddi syndrome, choledocholithiasis or ampullarylesion. [facility] Medical History Hypertension Severe pulmonary [...] pain Pulmonary embolism Endometrial cancer Cervical cancer detention current use of 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 Ovarian cancer GERD [...] succinate 25 mg 25 mg PO QDAY 08/08/24/12/06 History tablet,extended release 24 hr meloxicam 15 [...] 83.3 H Lymph % (Auto) 10.9 L [place] % (Auto) 4.6 Eos % (Auto) 0.2 [...] Clarity Clear Urine pH 6.5 Ur Specific [place] 1.010 Urine Protein 15 H Urine Glucose [...] dilation to 6.5 mm. Reading Location: [facility] Chest X-Ray 08/20/24 16:00 IMPRESSION: CARDIOMEGALY. NO ACUTE FINDINGS. Reading Location: [facility] Discharge Plan Dx/Rx/DC Orders Clinical Impression: Dilated pancreatic duct, Elevated liver enzymes, Abdominal pain, HFrEF (heart failure with reduced ejection fraction) Disposition Disposition: Acute Care Hospital [facility] Discharge Date/Time: 08/20/24 18:38 What to do if you have Problems For any increased pain, shortness of breath, bleeding, nausea or vomiting, chestpain, or any unexpected problems, contact your Primary Care Provider. Call [facility] ([phone]) or report to the closest Emergency Room. Call 911 if necessary. 08/21/24 0029 <Electronically signed by Simona Fernandez DO> Cosigner Signature (if applicable): CC: Dr. Dex Wilkinson MD ~ Signed [facility] Work Phone: 1(728) 968-352306-09-2025 History and physical note Author Lopez abdias [facility] Note Date/Time August 20, 2024 9:41p m [facility] Medical Records Department [address] [place] [address] H&P Exam - Hospitalist 08/20/24 1747 MR#: [id number] Acct: [id number] Name: MICHELLE MITCHELL Rep #:[id number] : 1980 43 From: Lopez adame DO PCP: Dr. Dex Wilkinson MD Status:A DM IN Location: [place] [address] HPI - General General Date of Admission: 08/20/24 Date of Service: 08/20/24 Chief Complaint: Worsening RUQ abdominal pain HPI Narrative MICHELLE MITCHELL, is a 43 F who presented to [facility] ED on 08/20/2024 with worsening RUQ abdominal [...] Myles in the office on 08/08. Productive friend, lab testing was done that showed evidence [...] acute concerns at this time. 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 Reading Location: [facility] Chest X-Ray 08/20/24 16:00 IMPRESSION: CARDIOMEGALY. NO ACUTE FINDINGS. Reading Location: [facility] Assessment & Plan Assessment/Plan (1) Abdominal pain: QUALIFIERS: Abdominal location: unspecified location Qualified Code(s): R10.9 - Unspecified abdominal pain (2) Elevated liver enzymes: (3) Dilated pancreatic duct: PLAN: Plan Patient is a 43-year-old female who presented to [facility] ED on 08/20/2024 with worsening RUQ abdominal [...] familial hypertrophic cardiomyopathy, hypertension ? Follows with [place] cardiology. Most recent echo on 07/21 showed [...] 75 minutes. Charges/Coding Visit Charges Inpatient E&M: 17785 Init Hosp L3 08/20/24 2141 <Electronically signed by Lopez Larios DO> Cosigner Signature (if applicable): CC: Dr. Lopez Larios DO; Dr. Dex Wilkinson MD~ Signed [facility] Work Phone: 1([phone]) 228-753706-09-2025 Evaluation note* Diagnosis Onset Date Resolution Status Admit Date Elevated liver enzymes resolved Ju ne 2024 [...] 2024 11:43pm Chronic abdominal pain chronic Ju 2024 11:43pm Leukocytosis inactive September 11 11:43pm [...] October 17, 2024 3:17pm Choledocholithiasis acute Septe mb2024 12:12pm History of biliary stent insertion acute November 23, 2024 12:12pm S/P ERCP acute November 12:12pm Diarrhea acute December 12, 2 025 1:56pm Elevated lipase acute December 122024 1:56pm Pulmonary hypertension acute Oc tober 2024 1:56pm Chronic abdominal pain chronic Oc tober 2024 1:56pm Abdominal pain inactive December 1:56pm GERD (gastroesophageal reflu x disease) inactive December 12 1:56pm [place] [facility] Work Phone: 1(877) 307-423506-09-[address] [facility]06-09-[address] [facility]06-04-2025 History of Present illness Narrative* Radu Kay MD - 08/15/2024 11:00 AM EDT Advanced [facility] Failure Clinic Note CHIEF COMPLAINT: No chief complaint on file. Primary Care Physician: No primary care provider on file. Forms Builder- Dario ([facility]) GI- Friend HISTORY OF PRESENT ILLNESS: Michelle Mitchell is a 43 y.o. female with hypertrophic cardiomyopathy who presents as a new patient Briefly she was apparently diagnosed with hypertrophic cardiomyopathy after an episode of syncope underwent ICD placement in 2006 with lead revision in 2008, and then explant of the entire device with reimplantation in 2016, she was followed with a local operator specialist communications Dr Bishop (was following at [facility] she moved to [place] in 2021), notably she was admitted with chest pressure to [facility] in 2014 and 2016 felt to be [...] showing possible vegetation and was transferred to [facility], her blood cultures were negative and [...] has. 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 No edema but does have cough and bloating She has [id number] smoking history no alcohol no illicits. She [...] "BUN", "CREATININE", "EGFR", "MG" in the last 71830 hours.No results for input(s): "ALBUMIN", "ALKPHOS", "ALT", "AST", "BILITOT", "LIPASE" in the last 95463 hours. No lab exists for component: "CA" CBC:No results for input(s): "WBC", "HGB", "HCT", "PLT", "MCV" in the last 89299 hours. HEME/ENDO:No results for input(s): "FERRITIN", "IRONSAT", "TSH", "HGBA1C" in the last 01155 hours. CARDIAC: No results for input(s): "LDH", "CKMB", "TROPHS", "BNP" in the last 21457 hours. No lab exists for component: "CK", "CKMBP"No results for input(s): "CHOL", "LDLF", "HDL", "TRIG" inthe last 66957 hours. No results found for: "BNP" DIAGNOSTIC [...] prior CC echocardiographic exam performed on 04/25/2021 ([facility]). Mobile echodensity reported today as [...] lead vegetation this was extensively evaluated at [facility] appears to be due to fibrin [...] Center 08/15/2024 11:00 AM Radu Kay MD [id number] [place] Radu De Dios IV, MD Heart [...] complaints of headaches. Hospitalizations: July 2024 at [facility] for ADHF. [facility] Work Phone: 1(513) 689-188006-04-2025 Instructions* Patient Instructions* Radu Kay MD - 08/15/2024 11:00 AM EDT To reach Dr. aKy's office please call [phone] ([place]). . Call [phone] to schedule an appointment. You may also contact the HF RNs at [email or web address] Thank you for coming to your appointment today. If you have any questions or need cardiac medication refills, please call the Heart Failure Office at [phone] option 6. Start spironolactone 25mg and jardiance 10mg (if affordable) Get labwork in the next 2-6 weeks (we can order if not ordered by your other doctors) Talk to Dr Wilkinson about Chantix in the future Try to get genetic testing information from your family Return in 3 months [facility] Work Phone: 1(979) 838-757905-31-[address] 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 Denies recent injury, fever, dysuria, urinary retention, incontinence, weakness, numbness, or hematuria. R: Patient instructed to proceed to evaluation of severe, sudden onset pain. Patient verbalizes understanding, and states she will proceed to [place] ED, and that her SO will drive her. 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 Denies recent injury, fever, dysuria, urinary retention, incontinence, weakness, numbness, or hematuria. R: Patient instructed to proceed to evaluation of severe, sudden onset pain. Patient verbalizes understanding, and states she will proceed to [place] ED, and that her SO will drive her. Reason for Disposition Patient sounds very sick or weak to the triager Protocols used: Back [id number] documented in this [facility]05-28-2025 Evaluation note* Diagnosis Onset Date Resolution Status [...] 2024 12:12pm S/P ERCP acute November 12:12pm [facility] Work Phone: 1([phone]) 518-995405-19-2025 History of Present illness Narrative* Quynh Chagn, [facility] - 07/30/2024 7:23 AM EDT [...] oz) Patient was sent a message via SHERPA assistant including the link to the [facility] Heart Failure education video: No sent 07/27/24 Patient unable to be reached after unsuccessful outreach attempt(s). No further attempts to contactpatient will be made. SUMMARY: -Pt discharged from [facility] on 07/27/24. -Medication review not done History of Present Illness: The following content has been copied and pasted from patient's discharge summary. If discharge summary unavailable, After Visit Summary or last pertinent inpatient notes are copied and pasted. Reason for Hospitalization: Patient transferred to [facility] from [place] for concerns for ADHF and hx of [...] follow up with her local PCP and operator specialist communications in [place]. 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 [facility] [place] [address] - [address] [place] [address] [place], [place] [id number] [facility] [address] [facility] [address] Estimated Creatinine Clearance: 70.3 mL/min (based on [...] 2024 7:24 AM documented in this encounterThe [facility]05-[facility]-2025 NoteHNO ID: [id number] Author: QUYNH CHANG RPh Service: ? Author [...] oz) Patient was sent a message via SHERPA assistant including the link to the [facility] Heart Failure education video: No sent 07/27/24 Patient unable to be reached after unsuccessful outreach attempt(s). No further attempts to contact patient will be made. SUMMARY: -Pt discharged from [facility] on 07/27/24. -Medication review not done History of Present Illness: The following content has been copied and pasted from patient's discharge summary. If discharge summary unavailable, After Visit Summary or last pertinent inpatient notes are copied and pasted. Reason for Hospitalization: Patient transferred to [facility] from [place] for concerns for ADHF and hx of [...] follow up with her local PCP and operator specialist communications in [place]. 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 Preferred pharmacy: [facility] [address] [place], [place] [id number] - [address] [facility] - [phone] [place], [place] [id number] [facility] [address] [place], [place] [id number] Estimated Creatinine Clearance: 70.3 mL/min (based on [...] Quynh Chang RPh July 30, 2024 7:24 [facility]05-19-2025 NotePatient Outreach (PHRXRF) MICHELLE MITCHELL ([id number]) 1980 F Date Time Provider Department 07/30/24 CHANG, QUYNH PHRXRF During your visit today, we recorded [...] oz) Patient was sent a message via SHERPA assistant including the link to the [facility] Heart Failure education video: No sent 07/27/24 Patient unable to be reached after unsuccessful outreach attempt(s). No further attempts to contact patient will be made. SUMMARY: -Pt discharged from [facility] on 07/27/24. -Medication review not done History of Present Illness: The following content has been copied and pasted from patient's discharge summary. If discharge summary unavailable, After Visit Summary or last pertinent inpatient notes are copied and pasted. Reason for Hospitalization: Patient transferred to [facility] from [place] for concerns for ADHF and hx of [...] follow up with her local PCP and operator specialist communications in [place]. 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 [facility]erred pharmacy: [facility] [address] [place], [place] [id number] - [address] [facility] - [phone] [place] [address] [facility] [address] [place], [place] [id number] Estimated Creatinine Clearance: 70.3 mL/min (based on [...] redness and itching a (more content not included)...[facility]05-16-2025 NoteHNO ID: [id number] Author: IRLANDA MOORE RPh Service: Pharmacy Author [...] RPh July 27, 2024 10:38 AM Pager: [phone] Medication List START taking these medications metoprolol [...] Your Medications These medications were sent to [facility] [address] [place] [address] - [address] [place] [address] - [phone] [place] [address] metoprolol succinate ER 25 mg 24 hr tabletUniversity [facility]als [facility]05-15-2025 NoteHNO ID: [id number] Author: TEJAL RODRÍGUEZ PA-C Service: Cardiovascular Medicine Author Type: Physician Ditching Machine Operator Type: Progress Notes Filed: 07/26/2024 15:35 Note Text: [facility] CARDI[facility]ULAR [facility]ICINE PROGRESS NOTE Michelle Mitchell [id number] PRIMARY SERVICE: Imaging, Hvi TIME OF SERVICE: [...] new from MICKI o (more content not included)...[facility]05-14-2025 NoteHNO ID: [id number] Author: SHEILA SPICER RN Service: Care Management Author Type: Registered Nurse Type: Care Mgt Initial Assessment Filed: 07/25/2024 14:56 Note Text: CARE MANAGEMENT: ASSESSMENT AND DISCHARGE PLAN SERVICE DATE: July 25, 2024 SERVICE TIME: 2:50 PM PCP: Dex Wilkinson MD Primary Contact: Extended Emergency Contact Information Primary Emergency Contact: Babar Mitchell Address: [address] [place] [address] [address] [place] [address] 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 Service: Pharmacy Author Type: Hand Silvering Supervisor Type: Plan of Care Filed: 07/25/2024 10:00 [...] questions, please reach out to your medication complaints coordinator. Thank you (Prices may vary at different pharmacy locations, this is the cost at [facility]05-14-2025 NoteHNO ID: [id number] Author: MAHNAZ RUFF, ? Service: Pharmacy Author Type: Hand Silvering Supervisor Type: Plan of Care Filed: 07/25/2024 09:57 Note Text: Insurance investigation completed Patient has active prescription insurance: Yes - Patient's insurance is in-network with [facility] Insurance loaded into Notus: Yes Test claim was completed to verify insurance is active: Successful Any questions, please reach out to your medication complaints coordinator.[facility]05-13-2025 Discharge summary [facility] Medical Records Department [address] [place] [address] Discharge Summary 07/24/24 0839 MR#: [id number] Acct: [id number] Name: MICHELLE MITCHELL Rep #:[id number] : 1980 43 From: Willian Ovalles DO PCP: Dr. Dex Wilkinson MD Status:A DM IN Location: [place] [address]- 1 Providers Date of Admission: 07/21/24 Primary Care Physician: Dr. Dex Wilkinson MD Consultations 07/21/24 00:48 Consult: Cardiology Routine Consulting Provider: [facility] Reason for Consult: AE CHF, Elevated Troponin and Near Syncope with Hypertrophic CM EMERGENT Consult: No MD Notified: Yes Date Notified: 07/21/24 Time Notified: 06:52 Method of Notification: Text Method of Consult:: In-Person 07/23/24 08:42 Consult: Gastroenterology Routine Consulting Provider: [facility] Reason for Consult: gastritis. clearance for [...] wire (atrial side). Previously noted in 2023. FRNACO Clay, who recommend blood cultures to rule [...] on following up with Dr. Aguilar at [facility], CTS at [facility] that specialized in cardiac transplantation. She [...] her sister. Patient has been accepted to [facility], awaiting on bed availablily. Medications at [...] heart transplant. So that is the reason [facility] was selected as a facility [...] Care Hospital Charges/Coding Visit Charges Inpatient E&M: 02103 Disch Hosp >30min 07/24/24 0843 Cosigner Signature (if applicable): CC: Dr. Willian Ovalles DO; Dr. Dex Wilkinson MD~ Signed [facility]05-13-20[facility] Progress note Author Willian Ovalles [facility] Note Date/Time July 23, 2024 12:31 pm [facility] Medical Records Department [address] [place] [address] Progress Note - Hospitalist 07/23/24 0749 MR#: [id number] Acct: [id number] Name: MICHELLE MITCHELL Angelo Rep #:[id number] 2 : 1980 43 From: Willian Ovalles DO PCP: Dr. Dex Wilkinson MD Status:A DM IN Location: [facility] [id number]- 1 Reason for Visit Reason for Visit: [...] 93.3 H, Lymph % (Auto) 2.5 L, [place] % (Auto) 2.5, Eos % (Auto) 0.0, [...] GI clearance prior to undergoing a MICKI. RFANCO Myles, who will be consulted. [place] for anticoagulation. (4) Pulmonary hypertension: PLAN: suspect group 2. PE ruled on CTA unlikely group 1 component, may benefit from referral to pulmonary hypertension specialist. Pt states that she plans on following up with Dr. Aguilar at [facility], CTS at [facility] that specialized in cardiac transplantation. She [...] her sister. Patient has been accepted to [facility], awaiting on bed availablily. Charges/Coding Visit Charges Inpatient E&M: 90134 Subs Hosp L3 07/23/24 1231 <Electronically signed by Willian Ovalles DO> Cosigner Signature (if applicable): CC: ~ Signed [facility] Work Phone: 1(832) 548-371105-12-2025 Progress note Author Mercy Bishop [facility] Note Date/Time July 23, 2024 11:05 am [facility] Medical Records Department [address] [place] [address] Progress Note - Cardiology 07/23/24 0826 MR#: [id number] Acct: [id number] Name: MICHELLE MITCHELL Rep #:[id number] 2 : 1980 43 From: Mercy Bishop MD PCP: Dr. Dex Wilkinson MD Status:A DM IN Location: [place] [address] Subjective Subjective Patient continues to complain of [...] 93.3 H, Lymph % (Auto) 2.5 L, [place] % (Auto) 2.5, Eos % (Auto) 0.0, [...] 93.3 H, Lymph % (Auto) 2.5 L, [place] % (Auto) 2.5, Eos % (Auto) 0.0, [...] her situation with Dr. Zambrano at the [facility] and he has agreed to take the [...] infraclavicular area. This is monitored with the [facility]. (3) Hemorrhagic gastritis: QUALIFIERS: Chronicity: [...] 5. Will arrange for transfer to the [facility] with her heart failure service. Charges/Coding Visit Charges Inpatient E&M: 07505 Subs Hosp L3 07/23/24 1105 <Electronically signed by Mercy Bishop MD> Cosigner Signature (if applicable): CC: ~ Signed [facility] Work Phone: 1(404) 473-588905-12-2025 Progress note [facility] Medical Records Department [address] [place] [address] Progress Note - Hospitalist 07/23/24 0749 MR#: [id number] Acct: [id number] Name: MICHELLE MITCHELL Rep #:[id number] 2 : 1980 43 From: Willian Ovalles DO PCP: Dr. Dex Wilkinson MD Status:A DM IN Location: [place] [address] Reason for Visit Reason for Visit: Diagnoses [...] 93.3 H, Lymph % (Auto) 2.5 L, [place] % (Auto) 2.5, Eos % (Auto) 0.0, [...] on following up with Dr. Aguilar at [facility], CTS at [facility] that specialized in cardiac transplantation. She [...] her sister. Patient has been accepted to [facility], awaiting on bed availablily. Charges/Coding Visit Charges Inpatient E&M: 41372 Subs Hosp L3 07/23/24 1231 Cosigner Signature (if applicable): CC: ~ Signed [facility]05-12-2025 Progress note [facility] Medical Records Department [address] [place] [address] Progress Note - Cardiology 07/23/24 0826 MR#: [id number] Acct: [id number] Name: MICHELLE MITCHELL Rep #:[id number] 2 : 1980 43 From: Mercy Bishop MD PCP: Dr. Dex Wilkinson MD Status:A DM IN [facility] Subjective Subjective Patient continues to complain [...] 93.3 H, Lymph % (Auto) 2.5 L, [place] % (Auto) 2.5, Eos % (Auto) 0.0, [...] 93.3 H, Lymph % (Auto) 2.5 L, [place] % (Auto) 2.5, Eos % (Auto) 0.0, [...] her situation with Dr. Zambrano at the [facility] and he has agreed to take the [...] right infraclavicular area. This is [facility]. (3) Hemorrhagic gastritis: QUALIFIERS: Chronicity: [...] 5. Will arrange for transfer to the [facility] with her heart failure service. Charges/Coding Visit Charges Inpatient E&M: 37630 [facility] Hosp L3 07/23/24 1105 Cosigner Signature (if applicable): CC: ~ Signed [facility]05-11-2025 Progress note Author Willian Ovalles [facility] Note Date/Time July 22, 2024 1:45p m [facility] Medical Records Department [address] [place] [address] Progress Note - Hospitalist 07/22/24 0852 MR#: [id number] Acct: [id number] Name: ALBADELMIMICHELLE Rep #:[id number] 8 : 1980 43 From: Willian Ovalles DO PCP: Dr. Dex Wilkinson MD Status:A DM IN Location: [place] [address] Reason for Visit Reason for Visit: Diagnoses [...] 87.1 H, Lymph % (Auto) 6.4 L, [place] % (Auto) 4.8, Eos % (Auto) 0.2, [...] on following up with Dr. Aguilar at [facility], CTS at [facility] that specialized in cardiac transplantation. She may be refferred by Dr. Aguilar since she will be following up there. PLAN: Plan VTE prophylaxis: LMWH. Charges/Coding Visit Charges Inpatient E&M: 62119 Subs Hosp L2 07/22/24 1343 <Electronically signed by Willian Ovalles DO> Cosigner Signature (if applicable): CC: ~ Signed [facility] Work Phone: 1(947) 298-377905-11-2025 Progress note Author Saman Clay [facility] Note Date/Time July 22, 2024 12:00 pm [facility] Medical Records Department [address] [place] [address] Progress Note - Cardiology 07/22/24 1157 MR#: [id number] Acct: [id number] Name: MICHELLE MITCHELL Rep #:[id number] 6 : 1980 43 From: Saman Clay MD PCP: Dr. Dex Wilkinson MD Status:A DM IN [facility] Subjective Subjective Continues to complain [...] 87.1 H, Lymph % (Auto) 6.4 L, [place] % (Auto) 4.8, Eos % (Auto) 0.2, [...] 87.1 H, Lymph % (Auto) 6.4 L, [place] % (Auto) 4.8, Eos % (Auto) 0.2, [...] Physician: Dex Wilkinson Performed By: Maru Kothari [facility] Physical Exam Narrative Comfortable. No apparent distress. [...] Cosigner Signature (if applicable): CC: ~ Signed [facility] Work Phone: 1(496) 277-383205-11-2025 Progress note [facility] Medical Records Department [address] [place] [address] Progress Note - Hospitalist 07/22/24 0852 MR#: [id number] Acct: [id number] Name: MICHELLE MITCHELL Rep #:[id number] 8 : 1980 43 From: Willian Ovalles DO PCP: Dr. Dex Wilkinson MD Status:A DM IN Location: [place] [address] Reason for Visit Reason for Visit: Diagnoses [...] 18 115/69 99 Room Air 07/22/24 05:44 05/11/25 05:44 07/22/24 05:44 07/22/24 05:44 07/22/24 [...] 87.1 H, Lymph % (Auto) 6.4 L, [place] % (Auto) 4.8, Eos % (Auto) 0.2, [...] she plans on following up with Dr. Agiular at [facility], CTS at [facility] that specialized in cardiac transplantation. She may be refferred by Dr. Aguilar since she will be following up there. PLAN: Plan VTE prophylaxis: LMWH. Charges/Coding Visit Charges Inpatient E&M: 06477 Subs Hosp L2 07/22/24 1345 Cosigner Signature (if applicable): CC: ~ Signed [facility]05-11-2025 Progress note [facility] Medical Records Department [address] [place] [address] Progress Note - Cardiology 07/22/24 1157 MR#: [id number] Acct: [id number] Name: MICHELLE MITCHELL Rep #:[id number] 6 : 1980 43 From: Saman Clay MD PCP: Dr. Dex Wilkinson MD Status:A DM IN Location: [place] [address] Subjective Subjective Continues to complain of abdominal [...] 87.1 H, Lymph % (Auto) 6.4 L, [place] % (Auto) 4.8, Eos % (Auto) 0.2, [...] 87.1 H, Lymph % (Auto) 6.4 L, [place] % (Auto) 4.8, Eos % (Auto) 0.2, [...] Physician: Dex Wilkinson Performed By: Maru Kothari, [facility] Physical Exam Narrative Comfortable. No apparent distress. [...] Cosigner Signature (if applicable): CC: ~ Signed [facility]05-10-2025 Consult note Author Saman Clay [facility] Note Date/Time July 21, 2024 1:26p m [facility] Medical Records Department [address] [place] [address] Consultation - Cardiology 07/21/24 1316 MR#: [id number] Acct: [id number] Name: MICHELLE MITCHELL Rep #:[id number] 6 : 1980 43 From: Saman Clay MD PCP: Dr. Dex Wilkinson MD Status:A DM IN Location: [place] [address]- 1 Assessment & Plan Assessment/Plan (1) Acute [...] reflux into the hepatic veins. [facility] Medical History (Updated 07/21/24 @ 13:[address] 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 cancer detention current use of 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 Ovarian cancer GERD [...] albuterol sulfate 90 mcg/actuation 1 inh inhalation MD N 07/26/23 Unknown History aerosol inhaler dicyclomine [...] 94.7 H, Lymph % (Auto) 2.7 L, [place] % (Auto) 1.5, Eos % (Auto) 0.0, [...] Albumin 4.3, Globulin 2.5, Albumin/Globulin Ratio 1.7, [id number] 07/20/24 20:05: Urine Color Straw, Urine Clarity Clear, Urine pH 6.0, Ur Specific [place] 1.020, Urine Protein 100 H, Urine Glucose [...] 92.6 H, Lymph % (Auto) 3.5 L, [place] % (Auto) 2.6, Eos % (Auto) 0.1, [...] 94.7 H, Lymph % (Auto) 2.7 L, [place] % (Auto) 1.5, Eos % (Auto) 0.0, [...] Clarity Clear, Urine pH 6.0, Ur Specific [place] 1.020, Urine Protein 100 H, Urine Glucose [...] 92.6 H, Lymph % (Auto) 3.5 L, [place] % (Auto) 2.6, Eos % (Auto) 0.1, [...] 20:06 IMPRESSION: No Acute Findings. [facility] Abdomen/Pelvis CT 07/20/24 21:15 IMPRESSION: 1. No acute findings in the abdomen and pelvis. 2. Mild hepatomegaly with heterogenous hepatic attenuation. 3. Small abdominopelvic ascites. Reading [facility] Chest CTA 07/20/24 21:15 IMPRESSION: 1. No evidence of pulmonary embolism. 2. Diffuse interlobular septal thickening, scattered ground-glass opacities and bilateral pleural effusions, concerning for pulmonary edema. 3. Cardiomegaly, with trace pericardial effusion. 4. Contrast reflux into the hepatic veins suggestive of right heart dysfunction. Reading [facility] 07/21/24 1326 <Electronically signed by Saman Clay MD> Cosigner Signature (if applicable): CC: Dr. Dex Wilkinson MD~ Signed [facility] Work Phone: 1(930) 397-364405-10-2025 Progress note Author Willian Ovalles [facility] Note Date/Time July 21, 2024 11:37 am [facility] Medical Records Department [address] [facility] [place] [address] Progress Note - Hospitalist 07/21/24 0753 MR#: [id number] Acct: [id number] Name: MICHELLE MITCHELL Rep #:[id number] : 1980 43 From: Willian Ovalles DO PCP: Dr. Dex Wilkinson MD Status:A DM IN Location: [place] [address] Reason for Visit Reason for Visit: Diagnoses [...] 94.7 H, Lymph % (Auto) 2.7 L, [place] % (Auto) 1.5, Eos % (Auto) 0.0, [...] Albumin 4.3, Globulin 2.5, Albumin/Globulin Ratio 1.7, [id number] 07/20/24 20:05: Urine Color Straw, Urine Clarity Clear, Urine pH 6.0, Ur Specific [place] 1.020, Urine Protein 100 H, Urine Glucose [...] 92.6 H, Lymph % (Auto) 3.5 L, [place] % (Auto) 2.6, Eos % (Auto) 0.1, [...] 20:06 IMPRESSION: No Acute Findings. Reading [facility] Abdomen/Pelvis CT 07/20/24 21:15 IMPRESSION: 1. No acute findings in the abdomen and pelvis. 2. Mild hepatomegaly with heterogenous hepatic attenuation. 3. Small abdominopelvic ascites. Reading [facility] Chest CTA 07/20/24 21:15 IMPRESSION: 1. No evidence of pulmonary embolism. 2. Diffuse interlobular septal thickening, scattered ground-glass opacities and bilateral pleural effusions, concerning for pulmonary edema. 3. Cardiomegaly, with trace pericardial effusion. 4. Contrast reflux into the hepatic veins suggestive of right heart dysfunction. Reading [facility] Physical Exam Const alert and no [...] prophylaxis: LMWH. Charges/Coding Visit Charges Inpatient E&M: 24924 Subs Hosp L2 07/21/24 1137 <Electronically signed by Willian Ovalles DO> Cosigner Signature (if applicable): CC: ~ Signed [facility] Work Phone: 1(130) 525-713305-10-2025 Consult note [facility] Medical Records Department [address] [place] [address] Consultation - Cardiology 07/21/24 1316 MR#: [id number] Acct: [id number] Name: ALBARAUL AWADBREANNE Stephens Rep #:[id number] 6 : 1980 43 From: Saman Clay MD PCP: Dr. Dex Wilkinson MD Status:A DM IN Location: [place] [id number] Assessment & Plan Assessment/Plan (1) Acute [...] reflux into the hepatic veins. [facility] Medical History (Updated 07/21/24 @ 13:[address] 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0, Ur Specific [place] 1.020, Urine Protein 100 H, Urine Glucose [...] 92.6 H, Lymph % (Auto) 3.5 L, [place] % (Auto) 2.6, Eos % (Auto) 0.1, [...] 20:06 IMPRESSION: No Acute Findings. Reading [facility] Abdomen/Pelvis CT 07/20/24 21:15 IMPRESSION: 1. No acute findings in the abdomen and pelvis. 2. Mild hepatomegaly with heterogenous hepatic attenuation. 3. Small abdominopelvic ascites. Reading [facility] Chest CTA 07/20/24 21:15 IMPRESSION: 1. No evidence of pulmonary embolism. 2. Diffuse interlobular septal thickening, scattered ground-glass opacities and bilateral pleural effusions, concerning for pulmonary edema. 3. Cardiomegaly, with trace pericardial effusion. 4. Contrast reflux into the hepatic veins suggestive of right heart dysfunction. Reading [facility] 07/21/24 1326 Cosigner Signature (if applicable): CC: Dr. Dex Wilkinson MD~ Signed [facility]05-10-2025 Progress note [facility] Medical Records Department [address] [place] [address] Progress Note - Hospitalist 07/21/24 1134 MR#: [id number] Acct: [id number] Name: MICHELLE MITCHELL Rep #:[id number] : 1980 43 From: Willian Ovalles DO PCP: Dr. Dex Wilkinson MD Status:A DM IN Location: [place] [address] Reason for Visit Reason for Visit: Diagnoses [...] 94.7 H, Lymph % (Auto) 2.7 L, [place] % (Auto) 1.5, Eos % (Auto) 0.0, [...] Albumin 4.3, Globulin 2.5, Albumin/Globulin Ratio 1.7, [id number] 07/20/24 20:05: Urine Color Straw, Urine Clarity Clear, Urine pH 6.0, Ur Specific [place] 1.020, Urine Protein 100 H, Urine Glucose [...] 92.6 H, Lymph % (Auto) 3.5 L, [place] % (Auto) 2.6, Eos % (Auto) 0.1, [...] 20:06 IMPRESSION: No Acute Findings. Reading [facility] Abdomen/Pelvis CT 07/20/24 21:15 IMPRESSION: 1. No acute findings in the abdomen and pelvis. 2. Mild hepatomegaly with heterogenous hepatic attenuation. 3. Small abdominopelvic ascites. Reading [facility] Chest CTA 07/20/24 21:15 IMPRESSION: 1. No evidence of pulmonary embolism. 2. Diffuse interlobular septal thickening, scattered ground-glass opacities and bilateral pleural effusions, concerning for pulmonary edema. 3. Cardiomegaly, with trace pericardial effusion. 4. Contrast reflux into the hepatic veins suggestive of right heart dysfunction. Reading Location[facility] Physical Exam Const alert and no [...] prophylaxis: LMWH. Charges/Coding Visit Charges Inpatient E&M: 33952 Subs Hosp L2 07/21/24 1137 Cosigner Signature (if applicable): CC: ~ Signed [facility]05-10-2025 History and physical note Author Sergio Whalen [facility] Note Date/Time July 21, 2024 6:28a m [facility] Medical Records Department [address] [facility] [place] [address] H&P Exam - Hospitalist 07/20/24 2322 MR#: [id number] Acct: [id number] Name: MICHELLE MITCHELL Rep #:[id number] : 1980 43 From: Sergio Giles DO PCP: Dr. Dex Wilkinson MD Status:A DM IN Location: [place] [address] HPI - General General Date of Admission: [...] recent colonoscopy ~8 days ago who presentsto [facility] complaining of shortness of breath and [...] to extend beyond 2 midnights. [facility] Medical History (Updated 07/21/24 @ 01:[address] 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.] Clarity Clear, Urine pH 6.0, Ur Specific [place] 1.020, Urine Protein 100 H, Urine Glucose [...] 20:06 IMPRESSION: No Acute Findings. Reading Location: [facility] Abdomen/Pelvis CT 07/20/24 21:15 IMPRESSION: 1. No acute findings in the abdomen and pelvis. 2. Mild hepatomegaly with heterogenous hepatic attenuation. 3. Small abdominopelvic ascites. Reading [facility] Chest CTA 07/20/24 21:15 IMPRESSION: 1. No evidence of pulmonary embolism. 2. Diffuse interlobular septal thickening, scattered ground-glass opacities and bilateral pleural effusions, concerning for pulmonary edema. 3. Cardiomegaly, with trace pericardial effusion. 4. Contrast reflux into the hepatic veins suggestive of right heart dysfunction. Reading Location: [facility] Assessment & Plan Assessment/Plan (1) Heart [...] to evaluate LVEF. Finally, we will consult [facility] to see this patient on [...] culture and sensitivity data. Give acetaminophen prn [id number] (level 1-5/10) pain or fever. Give low-dose [...] 75 minutes. Charges/Coding Visit Charges Inpatient E&M: 60127 Init Hosp L3 07/21/24 0628 <Electronically signed by Sergio Umaña DO> Cosigner Signature (if applicable): CC: Dr. Sergio Umaña DO; Dr. Dex Wilkinson MD~ Signed [facility] Work Phone: 1(554) 345-307605-10-2025 History and physical note [facility] Medical Records Department [address] [place] [address] H&P Exam - Hospitalist 07/20/24 2322 MR#: [id number] Acct: [id number] Name: MICHELLE MITCHELL Rep #:[id number] : 1980 43 From: Sergio Giles DO PCP: Dr. Dex Wilkinson MD Status:A DM IN Location: [facility] [id number] HPI - General General Date of [...] recent colonoscopy ~8 days ago who presentsto [facility] ER complaining of shortness of breath and [...] to extend beyond 2 midnights. [facility] Medical History (Updated 07/21/24 @ 01:[address] 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 Reading Location[facility] Abdomen/Pelvis CT 07/20/24 21:15 IMPRESSION: 1. No acute findings in the abdomen and pelvis. 2. Mild hepatomegaly with heterogenous hepatic attenuation. 3. Small abdominopelvic ascites. Reading Location: [facility] Chest CTA 07/20/24 21:15 IMPRESSION: 1. No evidence of pulmonary embolism. 2. Diffuse interlobular septal thickening, scattered ground-glass opacities and bilateral pleural effusions, concerning for pulmonary edema. 3. Cardiomegaly, with trace pericardial effusion. 4. Contrast reflux into the hepatic veins suggestive of right heart dysfunction. Reading [facility] Assessment & Plan Assessment/Plan (1) Heart [...] to evaluate LVEF. Finally, we will consult [facility] to see this patient on [...] culture and sensitivity data. Give acetaminophen prn [id number] (level 1-5/10) pain or fever. Give low-dose [...] 75 minutes. Charges/Coding Visit Charges Inpatient E&M: 93878 Init Hosp L3 07/21/24 0628 Cosigner Signature (if applicable): CC: Dr. Sergio Umaña DO; Dr. Dex Wilkinson MD~ Signed [facility]05-10-2025 Discharge summary Author Carlosdeny Nair [facility] Note Date/Time July 20, 2024 11:28p [facility] Medical Records Department [address] [place] [address] Emergency Department Summary 07/20/24 MR#: [id number] Acct: [id number] Name: MICHELLE MITCHELL Rep #:[id number] 2 : 1980 43 From: Carlos Jama [...] pain Pulmonary embolism Endometrial cancer Cervical cancer detention current use of 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 Ovarian cancer GERD [...] albuterol sulfate 90 mcg/actuation 1 inh inhalation MD N 07/26/23 Unknown History aerosol inhaler oxycodone-acetaminophen [...] reviewed, Vital signs reviewed Constitutional: [facility] HENT: MMM Eyes: Pupils equal round [...] others: none Consults: Dr. Torrez (internal medicine) [facility] Narrative: Patient was initially tachypneic [...] anemia or thrombocytopenia noted BMP without significant [place] abnormalities, no sign of RADHA, LFTs within [...] to PCU This note was generated with [employer] dictation software. It may contain incorrectwords, spelling, [...] 94.7 H Lymph % (Auto) 2.7 L [place] % (Auto) 1.5 Eos % (Auto) 0.0 [...] Clarity Clear Urine pH 6.0 Ur Specific [place] 1.020 Urine Protein 100 H Urine Glucose [...] 20:06 IMPRESSION: No Acute Findings. Reading [facility] Chest CTA 07/20/24 21:15 IMPRESSION: 1. No evidence of pulmonary embolism. 2. Diffuse interlobular septal thickening, scattered ground-glass opacities and bilateral pleural effusions, concerning for pulmonary edema. 3. Cardiomegaly, with trace pericardial effusion. 4. Contrast reflux into the hepatic veins suggestive of right heart dysfunction. Reading Location[facility] Discharge Plan Triage Chief Complaint: Shortness [...] MD [Primary Care Provider] - Print Language: Macanese What to do if you have Problems For any increased pain, shortness of breath, bleeding, nausea or vomiting, chestpain, or any unexpected problems, contact your Primary Care Provider. Call [facility] ([phone]) or report to the closest Emergency Room. Call 911 if necessary. 07/20/242327 <Electronically signed by Carlos Nair DO> Cosigner Signature (if applicable): CC: Dr. Dex Wilkinson MD ~ Signed [facility] Work Phone: 1(989) 955-640105-09-2025 Discharge summary [facility] Medical Records Department [address] [place] [address] Emergency Department Summary 07/20/24 MR#: [id number] Acct: [id number] Name: MICHELLE MITCHELL Rep #:[id number] 2 : 1980 43 From: Carlos Jama [...] pain Pulmonary embolism Endometrial cancer Cervical cancer detention current use of 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 Ovarian cancer GERD [...] albuterol sulfate 90 mcg/actuation 1 inh inhalation MD N 07/26/23 Unknown History aerosol inhaler oxycodone-acetaminophen [...] reviewed, Vital signs reviewed Constitutional: [facility] HENT: MMM Eyes: Pupils equal round [...] others: none Consults: Dr. Torrez (internal medicine) [facility] Narrative: Patient was initially tachypneic [...] to PCU This note was generated with [employer] dictation software. It may contain incorrectwords, spelling, [...] 94.7 H Lymph % (Auto) 2.7 L [place] % (Auto) 1.5 Eos % (Auto) 0.0 [...] Clarity Clear Urine pH 6.0 Ur Specific [place] 1.020 Urine Protein 100 H Urine Glucose [...] 20:06 IMPRESSION: No Acute Findings. Reading Location[facility] Chest CTA 07/20/24 21:15 IMPRESSION: 1. No evidence of pulmonary embolism. 2. Diffuse interlobular septal thickening, scattered ground-glass opacities and bilateral pleural effusions, concerning for pulmonary edema. 3. Cardiomegaly, with trace pericardial effusion. 4. Contrast reflux into the hepatic veins suggestive of right heart dysfunction. Reading Location: [facility] Discharge Plan Triage Chief Complaint: Shortness [...] MD [Primary Care Provider] - Print Language: Macanese What to do if you have Problems For any increased pain, shortness of breath, bleeding, nausea or vomiting, chestpain, or any unexpected problems, contact your Primary Care Provider. Call [facility] ([phone]) or report tothe closest Emergency Room. Call 911 if necessary. 07/20/24 3233 Cosigner Signature (if applicable): CC: Dr. Dex Wilkinson MD ~ Signed [facility]05-09-2025 Radiology Diagnostic study note [facility] Imaging Services [address] [place], [place] [address] Abdomen/Pelvis W IV Cont ONLY MR#: [id number] Acct: [id number] Name: MICHELLE MITCHELL Rep #: [id number] 3 : 1980 F 43 From: Mariana Moreno MD PCP: Dr. Dex Wilkinson MD Status: R EG ER Study:Abdomen/Pelvis W IV Cont ONLY Date of E xam: 07/20/24 Exam# [id number] Ordering Dr: Almaz Nair DO PROCEDURE: ABDOMEN/PELVIS [...] Location: [facility] CC: Dr. Dex Wilkinson MD; DO Jennifer Bravo 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: Signed [facility]05-09-2025 Radiology Diagnostic study note [facility] Imaging Services [address] [place], [place] [id number] CTA Chest W/WO Contrast MR#: [id number] Acct: [id number] Name: MICHELLE MITCHELL Rep #: [id number] 2 : 1980 F 43 From: Mariana Moreno MD PCP: Dr. Dex Wilkinson MD Status: R EG ER Study:CTA Chest W/WO Contrast Date of Exam: 07/20/24 Exam# [id number] Ordering Dr: Almaz Nair DO PROCEDURE: CTA [...] Wilkinson MD; Dr. Carlos Nair DO ~ 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: Signed [facility]05-09-2025 Radiology Diagnostic study note [facility] Imaging Services [address] [place], [place] [address] Chest 1 View (Portable) MR#: [id number] Acct: [id number] Name: MICHELLE MITCHELL #: [id number] 5 : 1980 F 43 From: Mariana Moreno MD PCP: Dr. Dex Wilkinson MD Status: R EG ER Study:Chest 1 View (Portable) Date of Exam: 07/20/24 Exam# [id number] Ordering Dr: Almaz Nair DO PROCEDURE: CHEST 1 VIEW (PORTABLE) 07/20/2024 REASON FOR EXAM: SHORTNESS OF BREATH TECHNIQUE: Frontal view of the chest. COMPARISON: 07/04/2023 FINDINGS: Hardware: Right pacemaker, unchanged. Heart: Cardiac and mediastinal contours are stable. Lungs: No focal consolidation. No pneumothorax. No pleural effusion. Bones: The bones are unremarkable. Other: RAD/Chest 1 View (Portable) IMPRESSION: No Acute Findings. Reading Location[facility] CC: Dr. Dex Wilkinson MD; Dr. Carlos Nair DO ~ 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: Signed [facility]05-09-2025 Discharge summary Author Carlos Nair [facility] Note Date/Time July 20, 2024 11:28p m [facility] Medical Records Department [address] [place] [address] Emergency Department Summary 07/20/24 MR#: [id number] Acct: [id number] Name: MICHELLE MITCHELL Rep #:[id number] 2 : 1980 43 From: Carlos Jama [...] pain Pulmonary embolism Endometrial cancer Cervical cancer detention current use of 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 Ovarian cancer GERD [...] albuterol sulfate 90 mcg/actuation 1 inh inhalation MD N 07/26/23 Unknown History aerosol inhaler oxycodone-acetaminophen [...] reviewed, Vital signs reviewed Constitutional: [facility] HENT: MMM Eyes: Pupils equal round [...] others: none Consults: Dr. Torrez (internal medicine) [facility] Narrative: Patient was initially tachypneic [...] to PCU This note was generated with [employer] dictation software. It may contain incorrectwords, spelling, [...] 94.7 H Lymph % (Auto) 2.7 L [place] % (Auto) 1.5 Eos % (Auto) 0.0 [...] Clarity Clear Urine pH 6.0 Ur Specific [place] 1.020 Urine Protein 100 H Urine Glucose [...] 20:06 IMPRESSION: No Acute Findings. Reading Location: [facility] Chest CTA 07/20/24 21:15 IMPRESSION: 1. No evidence of pulmonary embolism. 2. Diffuse interlobular septal thickening, scattered ground-glass opacities and bilateral pleural effusions, concerning for pulmonary edema. 3. Cardiomegaly, with trace pericardial effusion. 4. Contrast reflux into the hepatic veins suggestive of right heart dysfunction. Reading Location: [facility] Discharge Plan Triage Chief Complaint: Shortness [...] MD [Primary Care Provider] - Print Language: Macanese What to do if you have Problems For any increased pain, shortness of breath, bleeding, nausea or vomiting, chestpain, or any unexpected problems, contact your Primary Care Provider. Call [facility] ([phone]) or report to the closest Emergency Room. Call 911 if necessary. 07/20/249 <Electronically signed by Carlos Nair DO> Cosigner Signature (if applicable): CC: Dr. Dex Wilkinson MD ~ Signed [facility] Work Phone: 1(122) 692-662305-01-2025 [facility]04-26-2025 [facility]04-25-2025 [facility]04-24-2025 [facility] 07-04-2024 [facility]04-22-2025 Evaluation note* Diagnosis Onset Date Resolution Status [...] Pulmonary hypertension acute Ma y 2024 8:24am [facility] Work Phone: 1(857) 952-446904-22-2025 Evaluation note* Diagnosis Onset Date Resolution Status [...] 08, 2024 8 :24am Pulmonary hypertension acute 2024 8:24am [facility] Work Phone: 1(256) 110-617304-22-2025 Evaluation note* Diagnosis Onset Date Resolution Status [...] disease) acute August 20, 2024 5 :47pm [facility] Work Phone: 1(241) 858-757304-22-2025 Evaluation note* Diagnosis Onset Date Resolution Status [...] 2024 5:47pm Dilated pancreatic duct inactive J [facility] 2024 5:47pm GERD (gastroesophageal reflu x disease) inactive August 20, 2024 5 :47pm [facility] Work Phone: 1(705) 755-307804-22-2025 Evaluation note* Diagnosis Onset Date Resolution Status [...] 21, 2024 12:26am Elevated troponin resolved July 10 h2024 12:26am Nausea & vomiting resolved July [...] 2024 5:47pm Dilated pancreatic duct inactive J [facility] 2024 5:47pm GERD (gastroesophageal reflu x disease) [...] Chronic abdominal pain chronic Ju 2024 11:43pm [facility] Work Phone: 1(776) 774-840004-22-2025 Evaluation note* Diagnosis Onset Date Resolution Status [...] abdominal pain chronic Ju ly 2024 12:47pm [place] Work Phone: 1(208) 616-357704-22-2025 Evaluation note* Diagnosis Onset Date Resolution Status [...] acute July 122024 12:26am Pulmonary hypertension acute y 2024 12:26am Vegetation of heart valve [...] in place chronic October 03, 2024 11:25am [place] [facility] Work Phone: 1(177) 140-958204-22-2025 Evaluation note* Diagnosis Onset Date Resolution Status [...] 2024 8 :24am Elevated liver enzymes resolved 2024 5:47pm Abdominal pain inactive August 20, [...] in place chronic October 17, 2024 3:17pm [facility] Work Phone: 1(599) 151-867804-20-2025 Radiology Diagnostic study note [facility] Imaging Services [address] [place] [address] Abdomen/Pelvis W IV Cont ONLY MR#: [id number] Acct: [id number] Name: MICHELLE MITCHELL Rep #: [id number] 2 : 1980 F 43 From: Natali Mancuso DO PCP: Dr. Dex Wilkinson MD Status: R EG ER Study:Abdomen/Pelvis W IV Cont ONLY Date of E xam: 07/01/24 Exam# [id number] Ordering Dr: Anita Wade PROCEDURE: ABDOMEN/PELVIS W [...] Dr. Dex Wilkinson MD; MARCIO Haywood ~ 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: Signed [facility]04-20-2025 Telephone encounter Note* Telephone Encounter - Ella Cohen RN - 07/01/2024 3:41 PM EDT Your fax has been successfully sent to Dr. Wilkinson at [phone]. From: Ella Cohen RN 07/01/2024 3:37:02 PM Origin Record Created by SHANTE 07/01/2024 3:37:12 PM Conversion [RFPEEF5.tmp.PRT] Type: application/postscript G3 to TIFF #1: Success [image/g3] (77ms) GhostScript TIFF #1: Success [image/tiff] (209ms) ([id number]:WORKSRV3) 07/01/2024 3:37:18 PM Transmission Record Sent to [phone] with remote ID "[id number]" Result: Success Page record: 1 - 3 Elapsed time: 01:39 on channel 48 07/01/2024 3:37:19 PM Conversion Successfully created cover sheet. Type: application/vnd.openxmlformats-officedocument.wordprocessingml.document G3 to TIFF #1: Success [image/g3] (11ms) GhostScript TIFF #1: Success [image/tiff] (70ms) Resubmitted: [application/postscript] Word Automation #1: Success [image/g3] (1519ms) ([id number]:WORKSRV1) [facility] [id number] Miscellaneous Notes* Telephone Encounter - Ella Cohen RN - 07/01/2024 3:41 PM EDT Your fax has been successfully sent to Dr. Wilkinson at [phone]. From: Ella Cohen RN 07/01/2024 3:37:02 PM Origin Record Created by SHANTE 07/01/2024 3:37:12 PM Conversion [RFPEEF5.tmp.PRT] Type: application/postscript G3 to TIFF #1: Success [image/g3] (77ms) GhostScript TIFF #1: Success [image/tiff] (209ms) (SHWP-[id number]:WORKSRV3) 07/01/2024 3:37:18 PM Transmission Record Sent to [phone] with remote ID "[id number]" Result: Success Page record: 1 - 3 Elapsed time: 01:39 on channel 48 07/01/2024 3:37:19 PM Conversion Successfully created cover sheet. Type: application/vnd.openxmlformats-officedocument.wordprocessingml.document G3 to TIFF #1: Success [image/g3] (11ms) GhostScript TIFF #1: Success [image/tiff] (70ms) Resubmitted: [application/postscript] Word Automation #1: Success [image/g3] (1519ms) (SHWP-[id number]:WORKSRV1) * Telephone Encounter - Ella Cohen RN [...] smelled "fecal". 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 R: Patient understands care advice to go to ED now or call 911. Patient states she cannot leave [facility] at this time, but will go as soon as she has someone to take over care. Patient strongly advised to go immediately. She advises she will go to [place]. No further needs at this time. Patient [...] menstrual period?" no Protocols used: Abdominal Pain- Pmncf-VZYHR-NE documented in this [facility]04-20-2025 Telephone encounter Note* Telephone Encounter - Ella [...] smelled "fecal". 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 R: Patient understands care advice to go to ED now or call 911. Patient states she cannot leave [facility] at this time, but will go as soon as she has someone to take over care. Patient strongly advised to go immediately. She advises she will go to [place]. No further needs at this time. Patient [...] menstrual period?" no Protocols used: Abdominal Pain- Mfvwc-OBWSI-KW [facility] [id number] [facility]03-09-2025 [facility] 05-19-2024 [facility]03-07-2025 [facility]03-06-[address] [facility] [id number] [facility]03-04-2025 [facility] 05-15-2024 MszeHOPQ-JSS-5 (AGENT OF COVID-19) RNA: Not detected INFLUENZA A RNA: Not detected INFLUENZA B RNA: Not detected RESPIRATORY SYNCYTIAL VIRUS (RSV) RNA: Not detectedSt. Mary'[facility] CampusComment on above:Performed By: #### [id number] ####[facility] LABORATORYCLIA [id number] [address] OF [id number] Evaluation note* Diagnosis Onset Date Resolution Status Admit Date Hypertrophic cardiomyopathy acute March 28, 2024 11:28am ICD (implantable cardioverter-defibrillator) in place acute March 28 11:28am [facility] Work Phone: 1(249) 712-944101-15-2025 Evaluation note* Diagnosis Onset Date Resolution Status [...] 11:40pm Pacemaker acute July 20, 2024 11:40pm [facility] Work Phone: 1(407) 709-333401-15-2025 Evaluation note* Diagnosis Onset Date Resolution Status [...] 2024 12:26am Hypertension chronic July 21 12:26am [facility] Work Phone: 1(404) 275-643608-19-2024 Evaluation + Plan noteExtracted from: Title:Clinical Document Author:VICTOR M ORTIZ Date:10/31/23 [place] ADMISS[place] H[place]ORY AN D PHYSICIAL CHIEF COMPLAINT: HISTORY OF PRESENT ILLNESS: REVIEW OF SYSTEMS: ACTIVE PROBLEMS: (5) Anxiety associated with depression (059582182) Hypertrophic cardiomyopathy (613990941) IBS (irritable bowel syndrome) (34243602) Rectal bleeding (480764171) Tobacco use (7310159910) MEDICATIONS: Active Inpt Meds: None Active PRN Meds: None One Time Meds: None Active IV Meds: Lactated Ringers Infusion 1,000 mL (LR 1,000 mL) Start: 10/31/23 9:47:00 EDT, Rate: 50 mL/hr, 10/31/23 9:47:00 EDT ALLERGIES: (3) codeine morphine Zithromax FAMILY HISTORY: SOCIAL HISTORY: PHYSICAL EXAM: VITALS: NkyhamWgkxYWDtafoPHUcO2GEA9CbepJn(kg) 10/30 10:0436.6--794206AT08/19 57.0 24 Hr Tmax: 36.6 at 10/30 [...] from: Title:Clinical Document Author:VICTOR M ORTIZ Date:10/31/23 [place] ADMISSION H[place]ORY AN D PHYSICIAL CHIEF COMPLAINT: HISTORY OF PRESENT ILLNESS: REVIEW OF SYSTEMS: ACTIVE PROBLEMS: (5) Anxiety associated with depression (985014869) Hypertrophic cardiomyopathy (010884172) IBS (irritable bowel syndrome) (81202532) Rectal bleeding (657330173) Tobacco use (9842219230) MEDICATIONS: Active Inpt Meds: None Active PRN Meds: None One Time Meds: None Active IV Meds: Lactated Ringers Infusion 1,000 mL (LR 1,000 mL) Start: 10/31/23 9:47:00 EDT, Rate: 50 mL/hr, 10/31/23 9:47:00 EDT ALLERGIES: (3) codeine morphine Zithromax FAMILY HISTORY: SOCIAL HISTORY: PHYSICAL EXAM: VITALS: DmpxoyUnnwNCZpcouNMBtK6XGX5KlxqYb(kg) 10/30 10:0436.6--320351XU25/19 57.0 24 Hr Tmax: 36.6 at 10/30 [...] changes to the H&P unless noted below. [facility] 08-19-2024 Hospital Discharge instructions Patient Education 10/31/2023 [...] until you are awake and alert. Take wzqa-nwn-spfgpzm and prescription medicines only as told by [...] 12/19/2013 Document Revised: 02/10/2018 Document Reviewed: 06/19/2016 [employer] Patient Education 2020 [employer]. 10/31/2023 10:42:58 Colonoscopy, Adult, Care After, Xnmc-fx-Qgpm Colonoscopy, Adult, Care After This sheet gives [...] are soft and easy to digest. Take nqih-wgt-jlstnvw or prescription medicines only as told by [...] 04/02/2011 Document Revised: 12/29/2017 Document Reviewed: 11/22/2016 [employer] Patient Education 2020 [employer]. Follow Up Care 10/13/2023 09:56:55 With:VICTOR M ORTIZ MD Address: [facility] [address] [place] [phone] When: Unknown Comments:The office will call within 2 weeks with pathology results and a follow up visit will be scheduled. [facility] 08-19-2024 Summary of episode note Discharge Instructions Thank you for allowing [facility] to assist you with your healthcare needs. The following is importantdischarge information regarding your hospital visit. Your Care Team DEX WILKINSON MD What to do next Follow Up Appointments Follow Up with VICTOR M ORTIZ MD Where:[address] [address] [phone] Additional Information: The office will call within [...] until you are awake and alert. Take seme-rkk-tsjhglt and prescription medicines only as told by [...] 12/19/2013 Document Revised: 02/10/2018 Document Reviewed: 06/19/2016 [employer] Patient Education 2020 [employer]. Colonoscopy, Adult, Care After This sheet gives [...] are soft and easy to digest. Take edht-qgi-rrkzeng or prescription medicines only as told by [...] 04/02/2011 Document Revised: 12/29/2017 Document Reviewed: 11/22/2016 [employer] Patient Education 2020 [employer]. Additional Information VACCINATE! IT SAVES LIVES! Members of the community who have not yet received the COVID-19 vaccine and would like to receive it can visit one of [facility] vaccine clinics. There are many vaccine clinic locations within the [facility]. For locations and available times, please visit https://gettheshot.coronavirus.[place].gov/. It is important to note that some COVID mobile vaccine clinics are held outdoors and may be canceled in rainy or stormy conditions. To learn more about pediatric vaccinations (ages 5-11), we invite you to visit the [facility] webpage. https://www.[facility].org/pages/0292-Qbpxq-Ruxwitcjuxd-Lunhiozcpa-Iefvx-Uml stions.htmlTo learn more about the COVID-19 vaccine, we invite you to visit the CDC website for a list of frequently asked questions.https://www.cdc.gov/coronavirus/2019-ncov/vaccines/faq.html [facility] Patient Portal Access Instructions: Stay connected with your healthcare team and access your personal medical information anytime with the [facility] Patient Portal. Please follow the directions below to create your [employer] account: 1.Access the email account you provided upon registration to the hospital/physician office.2.Look for an invitation email from [facility].3.Open the email and access the invitation link: AcceptInvitation to [facility].4.Fill in the required pandey to create your account. To access your account, visit [email or web address]. Click the blue button labeled "Access Patient [...] who you will allowto register on the [facility] Patient Portal for access to your information. You can also access the [facility] Patient Portal on the [facility] johanna. Simply click on "Patient Portal" and then log into your account. If you would like to receive a full copy of your medical records, please contact the [facility] Medical Records Department by calling [phone], Tuesday through Tuesday between 8 a.m. and [...] Call your local pharmacy or go to http://Once Innovations.FanFueled/2P2Ou6e to find one close to you.3.Make use of household items: Use cat litter or old coffee grounds to dispose medications if other options arenot available. Mix your drugs with these household products, seal them in an airtight container andthrow it into the garbage. Call [facility]: [phone] to be sure your drugs can be [...] Adult, Care After Colonoscopy, Adult, Care After, Qxrd-dj-Zeht Medication Leaflets My discharge plan and instructions have been reviewed and explained to me and I,MICHELLE MITCHELL understand my current condition and have read and understand these discharge instructions. I have received a written copy of the plan/instructions. If I have questions, I am aware that I should contact my doctor. Patient/Security Manager Signature: Date/Time: Relationship to Patient: Witness Name/Signature: Date[facility]Time[facility] Note [place] H[place] AND PHYSICIAL CHIEF COMPLAINT: HISTORY OF PRESENT ILLNESS: REVIEW OF SYSTEMS: ACTIVE PROBLEMS: (5) Anxiety associated with depression (279527158) Hypertrophic cardiomyopathy (163751401) IBS (irritable bowel syndrome) (03714858) Rectal bleeding (800640072) Tobacco use (1664812269) MEDICATIONS: Active Inpt Meds: None Active PRN Meds: None One Time Meds: None Active IV Meds: Lactated Ringers Infusion 1,000 mL (LR 1,000 mL) Start: 10/31/23 9:47:00 EDT, Rate: 50 mL/hr, 10/31/23 9:47:00 EDT ALLERGIES: (3) codeine morphine Zithromax FAMILY HISTORY: SOCIAL HISTORY: PHYSICAL EXAM: VITALS: LkiuvnRocdAWTdoziXQWtN0JYH2KafhSt(kg) 10/30 10:0436.6--379370NG50/19 57.0 24 Hr Tmax: 36.6 at 10/30 [...] M ORTIZ MD on 10/31/2023 10:12 AM [facility]08-19-2024 Note [place] AD[place] HIST[place] AND PHYSICIAL CHIEF COMPLAINT: HISTORY OF PRESENT ILLNESS: REVIEW OF SYSTEMS: ACTIVE PROBLEMS: (5) Anxiety associated with depression (229181560) Hypertrophic cardiomyopathy (878320884) IBS (irritable bowel syndrome) (76871384) Rectal bleeding (634125936) Tobacco use (7708839693) MEDICATIONS: Active Inpt Meds: None Active PRN Meds: None One Time Meds: None Active IV Meds: Lactated Ringers Infusion 1,000 mL (LR 1,000 mL) Start: 10/31/23 9:47:00 EDT, Rate: 50 mL/hr, 10/31/23 9:47:00 EDT ALLERGIES: (3) codeine morphine Zithromax FAMILY HISTORY: SOCIAL HISTORY: PHYSICAL EXAM: VITALS: TlbczhSqrlPRAeqgrEJAdN1PNF9UwhoMu(kg) 10/30 10:0436.6--103338GX53/19 57.0 24 Hr Tmax: 36.6 at 10/30 [...] M ORTIZ MD on 10/31/2023 10:11 AM [facility]08-19-2024 Anesthesiology Consult note Patient: MICHELLE MITCHELL Age: [...] Insertion of cardiac defibrillator using fluoroscopic guidance (9416471283). Comments: 10/26/2023 10:54 Sophie Abraham RN PACER WITH DEFIB Mastectomy of left breast (0251032044). Laparoscopic cholecystenterostomy (2767505175). H/O: tubal ligation (465523230). Ablation of uterine fibroid using magnetic resonance imaging guidance ([id number]). History of appendectomy ([id number]). Social History: Social & Psychosocial Habits Alcohol [...] Equipment: Extension set . Assessment and Plan [place] [employer]esthesi[employer] (ASA) physical status classification: Class II. Anesthetic Preoperative Plan Anesthetic technique: MAC. Postoperative pain management: Per surgeon. Informed consent: signed by patient. Digitally Signed by ANGELIA GIBBS on 10/31/2023 10:06 AM [facility]04-22-2024 Telephone encounter Note* Telephone Encounter - Angela Krishna RN - 07/04/2023 7:34 PM EDT To:Angela Krishna 07/04/2023 7:33 PM Your fax has been successfully sent to Dr Wilkinson at [phone]. 07/04/2023 7:30:51 PM Transmission Record Sent to [phone] with remote ID "[id number]" Result: (0) Success Page record: 1 - 3 Elapsed time: 01:48 on channel 50 07/04/2023 7:29:28 PM Conversion Record Successfully created cover sheet. Type: application/vnd.openxmlformats-officedocument.wordprocessingml.document G3 to TIFF #1: Success [image/g3] (63ms) GhostScript TIFF #1: Success [image/tiff] (220ms) Resubmitted: [application/postscript] Word Automation #1: Success [image/tiff] (1411ms) ([id number]:WORKSRV2) 07/04/2023 7:29:06 PM Conversion Record [RFPDA51.tmp.PRT] Type: application/postscript G3 to TIFF #1: Success [image/g3] (92ms) GhostScript TIFF #1: Success [image/tiff] (359ms) ([id number]:WORKSRV2) 07/04/2023 7:28:56 PM Origin Record Created by MERCEDES [facility] [id number] Miscellaneous Notes* Telephone Encounter - Angela Krishna RN - 07/04/2023 7:34 PM EDT To:Angela Krishna 07/04/2023 7:33 PM Your fax has been successfully sent to Dr Wilkinson at [phone]. 07/04/2023 7:30:51 PM Transmission Record Sent to [phone] with remote ID "[id number]" Result: (0) Success Page record: 1 - 3 Elapsed time: 01:48 on channel 50 07/04/2023 7:29:28 PM Conversion Record Successfully created cover sheet. Type: application/vnd.openxmlformats-officedocument.wordprocessingml.document G3 to TIFF #1: Success [image/g3] (63ms) GhostScript TIFF #1: Success [image/tiff] (220ms) Resubmitted: [application/postscript] Word Automation #1: Success [image/tiff] (1411ms) ([id number]:WORKSRV2) 07/04/2023 7:29:06 PM Conversion Record [RFPDA51.tmp.PRT] Type: application/postscript G3 to TIFF #1: Success [image/g3] (92ms) GhostScript TIFF #1: Success [image/tiff] (359ms) ([id number]:WORKSRV2) 07/04/2023 7:28:56 PM Origin Record Created by [...] be seen in ED, Patient agreeable to [facility] and will have her drive her. Patient understands care advice. No further needs at this time. Reason for Disposition [1] MODERATE difficulty breathing (e.g., speaks in phrases, SOB even at rest, pulse 100-120) AND [2] NEW-onset or WORSE than normal Protocols used: Breathing Jgryqihllp-CJDYT-DZ documented in this [facility]04-22-2024 Telephone encounter Note* Telephone Encounter - Angela [...] be seen in ED, Patient agreeable to [facility] and will have her drive her. Patient understands care advice. No further needs at this time. Reason for Disposition [1] MODERATE difficulty breathing (e.g., speaks in phrases, SOB even at rest, pulse 100-120) AND [2] NEW-onset or WORSE than normal Protocols used: Breathing Bwfkwmfyga-RFYJG-DC [facility] [id number] Hospital Discharge instructions Additional Instructions Stop taking the clindamycin and start taking Augmentin instead. Follow-up with your dentist on Tuesday. Return to emergency room with any worsening symptoms or you have difficulty swallowing.[facility] Work Phone: 1(949) 702-424002-14-2022 NoteHNO ID: [id number] Author: Vandana Becerra MD Service: Hospital Medicine Author Type: Resident Type: Plan of Care Filed: 04/26/2021 10:10 PM Note Text: Patient states she has her son in a car accident and has to leave AMA. Patient understands the risks of leaving AMA including worsening shortness of breath, heart failure and . She still wants to leave AMA. Patient has capacity. Vandana Becerra MDGood Samaritan Medical CenterUpudjnyy86-16-2181 NoteHNO ID: [id number] Author: Vandana Becerra MD Service: Hospital Medicine Author Type: Resident Type: Plan of Care Filed: 04/26/2021 8:00 PM Note Text: Chart reviewed. ACS unlikely. Will give one dose ibuprofen for the pleuritic chest pain (Has h/o abnormal uterine bleed, however had ablation; no history of GI bleed.) Vandana Becerra MDGood Samaritan Medical [id number] NoteHNO ID: [id number] Author: Aj Mullins MD Service: Hospital Medicine Author Type: Physician Type: Progress Notes Filed: 04/26/2021 3:41 PM Note Text: DEPARTMENT OF HOSPITAL MEDICINE PROGRESS NOTE SERVICE DATE: 04/26/2021 SERVICE TIME: 3:30 PM Hospital Medicine/Primary Attending: Aj Mullins MD NIGHT AND WEEKEND COVERAGE: [employer] COVERAGE:TEAM 2: [id number], please call Team 2 pager [phone]. [id number], please call F Night Coverage pager ([phone]) for Teams 1, 2, AND 3 Subjective [...] -- 04/25/21 0830 activity - mobilize patient (co,ms) VTE Prophylaxis: on AC Disposition: Home Plan of care discussed with: Patient, RN and Consultants: cardiology dr. Morris and Francisco TROY SIGNATURE: Aj Mullins MD PATIENT NAME: Michelle Mitchell DATE: April 26, 2021 TIME: 3:30 PM etx [id number] Samaritan Medical CenterNmxascym80-10-3677 NoteHNO ID: [id number] Author: CHAKA Pedraza Tech Service: ? Author Type: Comb Fixer Type: Procedures Filed: 04/25/2021 2:42 PM Note Text: AppSocially pacer interrogation done on 04/25/2021 @ [address] [place] [address] notified to call for report.[facility]aritan Medical [id number] Influenza virus A and B RNA and SARS-CoV-2 (COVID-19) N gene panel BIMAL+probe (Resp)COVID 19 RESULT: SARS-CoV-2 (Agent of COVID-19) Not Detected by PCR. INFLUENZA A PCR: Negative for Influenza A by RT-PCR INFLUENZA B PCR: Negative for Influenza B by RT-PCRDorothea Dix Psychiatric CenterComment on above: Performed By: #### [id number] #### [facility] CLIA [id number] [address] [place] [id number] [place] STATES OF AMERICAConsult note Author Radu Allen [facility] Note Date/Time November 23, 2024 3:01pm [facility] Medical Records Department [address] [place] [address] Anesthesia Postop Eval I 11/23/24 1500 MR#: [id number] Acct: [id number] Name: MICHELLE MITCHELL Rep #:[id number] 8 : 1980 44 From: Radu Allen PCP: Dr. Dex Wilkinson MD Status:R ROBINSON GOODRICH Y Race: C Location: [place] [address] Anesthesia: Postop Eval I Current Vital Signs [...] document: Postop Eval 1 completed: Yes 11/23/24 2179 <Electronically signed by Radu Allen > Date _ Radu Fu Signature: Date CC: ~ Signed [facility] Work Phone: Consult note Author Willian Munoz [facility] Note Date/Time November 23, 2024 3:57pm [facility] Medical Records Department [address] [place] [address] Anesthesia Postop Eval II 11/23/24 1545 MR#: [id number] Acct: [id number] Name: MICHELLE MITCHELL Rep #:[id number] 5 : 1980 44 From: Willian Munoz MD PCP: Dr. Dex Wilkinson MD Status:Evelyn GOODRICH Y Race: C Location: [place] [address] Anesthesia Postop Eval I Sum Postop Eval [...] Level: 0 nausea: No Vomiting: No 11/23/24 4492 <Electronically signed by Willian Munoz MD> Date _ Willian Munoz MD Cosigner Signature: Date CC: ~ Signed [facility] Work Phone: Consult note Author Steven Chaudhari [facility] Note Date/Time December 31, 2024 3 :11pm [facility] Medical Records Department [address] [place] [address] Counseling Note - Pharmacy 12/31/24 1508 MR#: [id number] Acct: [id number] Name: MICHELLE MITCHELL Rep #:[id number] 3 : 1980 44 From: Steven Chaudhari PCP: Dr. Dex Wilkinson MD Status:A DM KISHA Y Location: [place] [address]- 1 Pharmacy [facility] Counseling Pharmacy Service has performed discharge medication reconciliation and counseling for this patient. The patient's discharge medication list was reviewed for discrepancies and discrepancies were resolved. The patient was counseled on the following discharge medications and changes in medications for homegoing were reviewed. The Reason for Use, instructions for use, and potential side effects were reviewed for all new medications. The patient's questions regarding all of their medications were answered. 1. Vancomycin 125 mg PO Q6 2. Probiotic The patient was able to verbally demonstrate an understanding of their dischargemedications. Medications at Discharge Home Medications alprazolam 0.5 [...] 25 mg PO DAILY WATER PILL 08/20/24 empagliflozin 10 mg tablet (Jardiance) 10 mg PO QDAY 10/12/24 furosemide 20 mg tablet (Lasix) 20 mg PO QDAY PRN edema 10/17/24 ondansetron 4 mg disintegrating tablet 4 mg PO Q8H PRN PRN Nausea #10 tabs 11/25/24 varenicline tartrate 0.5 mg (11)-1 mg (42) tablets in a dose pack tab PO BID smoking cessation 11/25/24 L.acidophil,salivari-Bifido bifidum-Strep thermoph 175 mg capsule 1 cap PO TID #0 caps 12/31/24 pkaydx-umjuzeke-pyzdcej 24,000-76,000-120,000 unit capsule,delayed rel (Creon) 2cap PO TIDCM 1 month #180 caps 12/31/24 vancomycin 125 mg capsule (Vancocin) 125 mg PO Q6H 10 days #40 caps 12/31/24 12/31/24 1511 <Electronically signed by Steven bullard> Date _ Stevengabriela Chaudhari Danetteignfior Signature (if applicable): Date CC: ~ Signed [facility] Work Phone: Consult note Author Steven Chaudhari [facility] Note Date/Time December 31, 2024 4 :11pm [facility] Medical Records Department [address] [place] [address] Counseling Note - Pharmacy 12/31/24 1508 MR#: [id number] Acct: [id number] Name: MICHELLE MITCHELL Rep #:[id number] 3 : 1980 44 From: Steven Chaudhari PCP: Dr. Dex Wilkinson MD Status:A DM KISHA Y Location: [place] [address] Pharmacy [facility] Counseling Pharmacy Service has performed discharge medication reconciliation and counseling for this patient. The patient's discharge medication list was reviewed for discrepancies and discrepancies were resolved. The patient was counseled on the following discharge medications and changes in medications for homegoing were reviewed. The Reason for Use, instructions for use, and potential side effects were reviewed for all new medications. The patient's questions regarding all of their medications were answered. 1. Vancomycin 125 mg PO Q6 2. Probiotic The patient was able to verbally demonstrate an understanding of their dischargemedications. Medications at Discharge Home Medications alprazolam 0.5 [...] 25 mg PO DAILY WATER PILL 08/20/24 empagliflozin 10 mg tablet (Jardiance) 10 mg PO QDAY 10/12/24 furosemide 20 mg tablet (Lasix) 20 mg PO QDAY PRN edema 10/17/24 ondansetron 4 mg disintegrating tablet 4 mg PO Q8H PRN PRN Nausea #10 tabs 11/25/24 varenicline tartrate 0.5 mg (11)-1 mg (42) tablets in a dose pack tab PO BID smoking cessation 11/25/24 L.acidophil,salivari-Bifido bifidum-Strep thermoph 175 mg capsule 1 cap PO TID #0 caps 12/31/24 owirty-vsnlkjov-lqllxcf 24,000-76,000-120,000 unit capsule,delayed rel (Creon) 2cap PO TIDCM 1 month #180 caps 12/31/24 vancomycin 125 mg capsule (Vancocin) 125 mg PO Q6H 10 days #40 caps 12/31/24 12/31/24 1511 <Electronically signed by Steven bullard> Date _ Steven uF Signature (if applicable): Date CC: ~ Signed [facility] Work Phone: Discharge summary Author Willian Ovalles [facility] Note Date/Time July 24, 2024 8:43a m [facility] Medical Records Department [address] [place] [address] Discharge Summary 07/24/24 0839 MR#: [id number] Acct: [id number] Name: MICHELLE MITCHELL Rep #:[id number] 8 : 1980 43 From: Willian Ovalles DO PCP: Dr. Dex Wilkinson MD Status:A DM IN Location: [facility] [id number]- [id number] Providers Date of Admission: 07/21/24 Primary Care Physician: Dr. Dex Wilkinson MD Consultations 07/21/24 00:48 Consult: Cardiology Routine Consulting Provider: [facility] Reason for Consult: AE CHF, Elevated Troponin and Near Syncope with Hypertrophic CM EMERGENT Consult: No Notified: Yes Date Notified: 07/21/24 Time Notified: [...] on following up with Dr. Aguilar at [facility], CTS at [facility] that specialized in cardiac transplantation. She [...] her sister. Patient has been accepted to [facility], awaiting on bed availablily. Medications at [...] heart transplant. So that is the reason [facility] was selected as a facility [...] Care Hospital Charges/Coding Visit Charges Inpatient E&M: 49179 Disch Hosp >30min 07/24/24 0843 <Electronically signed by Willian Ovalles DO> Cosigner Signature (if applicable): CC: Dr. Willian Ovalles DO; Dr. Dex Wilkinson MD~ Signed [facility] Work Phone: Discharge summary Author Gage Jiménezgett [facility] Note Date/Time August 11, 2024 1:39p m [facility] Medical Records Department [address] [place] [address] Emergency Department Summary 08/11/24 MR#: [id number] Acct: [id number] Name: MICHELLE MITCHELL Rep #:[id number] 6 : 1980 43 From: Gage rush [...] intact Psych: Cooperative, appropriate mood and [facility] History (Updated 08/11/24 @ 13:36 [...] pain Pulmonary embolism Endometrial cancer Cervical cancer detention current use of 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 Ovarian cancer GERD [...] 80.2 H Lymph % (Auto) 11.4 L [place] % (Auto) 4.9 Eos % (Auto) 1.9 [...] Sl. Cloudy Urine pH 7.0 Ur Specific [place] 1.010 Urine Protein 15 H Urine Glucose [...] Colonic diverticulosis without acute diverticulitis. Reading Location: [facility] Discharge Plan Triage Chief Complaint: Flank Pain [...] PM given you received Toradol. Print Language: Macanese Disposition Disposition: Home, Self Care What to do if you have Problems For any increased pain, shortness of breath, bleeding, nausea or vomiting, chestpain, or any unexpected problems, contact your Primary Care Provider. Call [facility] ([phone]) or report to the closest Emergency Room. Call 911 if necessary. 08/11/24 1339 <Electronically signed by Gage Sharma DO> Cosigner Signature (if applicable): CC: Dr. Dex Wilkinson MD ~ Signed [facility] Work Phone: Discharge summary Author Emerson Sierra [facility] Note Date/Time September 14, 2024 11:02 am [facility] Medical Records Department [address] [place] [address] Instructions for Home/Discharge Instructions 09/14/24 1057 MR#: [id number] Acct: [id number] Name: MICHELLE MITCHELL Rep #:[id number] 5 : 1980 43 From: Emerson Arciniega [...] can be placed): Home, Self Care 09/14/24 110<Electronically signed by Emerson Sierra MD>Emerson Sierra MD CC: Dr. Sergio Umaña DO; Dr. Dex Wilkinson MD ~ Signed [facility] Work Phone: Discharge summary Author Emerson Sierra [facility] Note Date/Time September 14, 2024 11:05 am [facility] Medical Records Department [address] [place] [address] Discharge Summary 09/14/24 110 MR#: [id number] Acct: [id number] Name: MICHELLE MITCHELL Rep #:[id number] 1 : 1980 43 From: Emerson Arciniega PCP: Dr. Dex Wilkinson MD Status:A DM KISHA Location: [facility] BW226-0 Providers Date of Admission: 09/11/24 Date of Discharge: 09/14/24 Primary Care Physician: Dr. Dex Wilkinson MD Consultations 09/12/24 00:20 Consult: Gastroenterology Routine Consulting Provider: [facility] Reason for Consult: Intractable abdominal pain [...] pain. No fever or chills. 1. 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 Dennison. Patient is stated that [...] of oxycodone 5 mg tablets sent to [facility] pharmacy. 2. Mildly elevated lipase of 113 [...] 83.5 H, Lymph % (Auto) 6.7 L, [place] % (Auto) 8.8, Eos % (Auto) 0.1, [...] Self Care Charges/Coding Visit Charges Inpatient E&M: 54097 Disch Hosp >30min 09/14/24 1105 <Electronically signed by Emerson Sierra MD> Cosigner Signature (if applicable): CC: Dr. Dex Wilkinson MD; Dr. Emerson Sierra MD~ Signed [facility] Work Phone: Discharge summary Author Edwin Cuenca [facility] Note Date/Time December 28, 2024 1 0:31am [facility] Medical Records Department [address] [place] [address] Emergency Department Summary 12/28/24 MR#: [id number] Acct: [id number] Name: MICHELLE MITCHELL Rep #:[id number] 6 : 1980 44 From: Edwin Cuenca DO PCP: Dr. Dex Wilkinson MD Status:R EG ER Location: ED HPI History of Present Illness Chief Complaint: Chest Pain Narrative Narrative: Pt is a 44-year-old female is presenting to the ER today with chief complaint ofchest pain. Patient came in by EMS. Patient was at treatment clinic ER on December 26. Patient had evaluation, CTA of the chest, abdomen, pelvis. [facility]was [facility] in [place] where patient had a cardiac cath. Patient's operator specialist communications is Dr. Bishop. GI is Dr Myles. Patient was released yesterday evening around 7 PM. Patient stated that she had the left-sided chest pain that radiated to left side of her neck, left shoulder, into herleft upper arm. Patient has done no heavy lifting, twisting or turning. Patient has multiple allergies. Patient has a significant history. Patient does not have a gallbladder. Patient's just had biliary stents removed last month from Dr. Myles. Patient has AICD. Patient's congestive heart failure physician is in [facility], otherwise she has local physicians patientis given 4 baby aspirin by EMS. Patient states she cannot take nitro, she has allergy to morphine. She is given 4 baby aspirin. Patient states she has a left-sided facial/left frontal headache which is common for her that she has daily. Patient took Nurtec with little relief. Patient's headache was not the worse headache of her life, not sudden onset, not thunderclap in nature. REVIEW OF SYSTEMS: Unless otherwise stated in this report the patient's positiveand negative responses for review of systems for constitutional, eyes, ENT, cardiovascular, respiratory, gastrointestinal, neurological, , musculoskeletal, and integument systems and related systems to the presenting problem are either stated in the history of present illness or were not pertinent or were negative for the symptoms and/or complaints related to the presenting medical problem. Nurse's notes and vital signs reviewed. The patient is not hypoxic. Vital signs reviewed and patient is not hypoxic. General: The patient appears well and in no apparent distress. Patient is resting comfortably on cart. Not toxic, lethargic, or listless. Skin: Warm, dry, no pallor noted. There is no rash noted. Head: Normocephalic, atraumatic patient has no midline or paracervical tenderness to palpation. Forage motion of cervical spine with difficulty.; Eye: Normal conjunctiva, no drainage, EOMI. PERRL. Ears, Nose, Mouth, and Throat: oral mucosa is moist. Nares patent. Mouth withoutvesicles. Cardiovascular: Regular Rate and Rhythm, no murmurs, gallops, or rubs Respiratory: Patient is in no distress, no accessory muscle use, lungs are clearto auscultation, no wheezing, rales or rhonchi Back: non-tender, no CVA tenderness bilaterally to percussion. NO CTLS midline or paraspinal tenderness to palpation. GI: Soft, no tenderness to palpation, no masses appreciated. No rebound, guarding, or rigidity noted. Patient has no midepigastric tenderness to palpation, patient has mild umbilical tenderness to palpation, no suprapubic tenderness palpation, no flank pain medical. Musculoskeletal: The patient has full range of motion of all extremities and joints with no difficulty. Patient has no motor, no sensory deficits. Patient is range of motion of left shoulder with no significant reproduction of pain in the left upper chest or neck. Neurological: A&O x4, normal speech, no focal neurological deficits. 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 Ovarian cancer GERD [...] QDAY PRN rosario a 10/17/24 Unknown History ondansetron 4 mg disintegrating 4 mg PO Q8H PRN PRN Na usea #10 tabs 11/25/24 Unknown Rx tablet varenicline tartrate 0.5 mg (11)-1 tab PO 11/25/24 Unk nown History mg (42) tablets in a dose pack Allergy/AdvReac Type Severity Reaction Status Date / Time gabapentin (From Neurontin) Allergy Severe Anaphylaxis Verified 12/28/24 08:12 morphine Allergy Mild Hives Verified 12/28/24 08:12 codeine Allergy Hives Verified 12/28/24 08:12 erythromycin base Allergy PT UNSURE Verified 12/28/24 08:12 OF REACTION Fish Containing Products Allergy Other Verified 12/28/24 08:12 levofloxacin Allergy PT UNSURE Verified 12/28/24 08:12 OF REACTION shellfish derived Allergy Other Verified 12/28/24 08:12 tramadol Allergy Hives Verified 12/28/24 08:12 trimethobenzamide (From Allergy Other Verified 12/28/24 08:12 Tigan) hydrocodone (From Vicodin) AdvReac Other Verified 12/28/24 08:12 metoclopramide (From Reglan) AdvReac Other Verified 12/28/24 08:12 Family History Father Heart disease Idiopathic hypertrophic [...] house current occupational status: employed Smoking Status: Former smoker how long ago did patient quit smokin months ago alcohol intake: former substance use type: does not use caffeine: Yes EXAM Physical Exam Const Vital Signs: 12/28/24 08:07 12/28/24 08:12 12/28/24 09:17 Temperature 95.7 F L Temperature Source Axillary Pulse Rate 96 82 Respiratory Rate 17 19 H Blood Pressure 141/93 H 127/86 H Blood Pressure Mean 109 99 Pulse Ox 100 98 Oxygen Delivery Method Room Air Room Air Room Air 12/28/24 10:00 Temperature Temperature Source Pulse Rate 74 Respiratory Rate 21 H Blood Pressure 121/80 H Blood Pressure Mean 93 Pulse Ox 98 Oxygen Delivery Method Room Air MDM MDM MDM Narrative Medical decision making narrative: Patient seen and examined: Patient we have IV, repeat labs, patient just had a CTA of the chest abdomen pelvis that was done on December 26. Patient has CT of the chest rule out PE, patient has history of DVT and PE. Patient was given 4 baby aspirin prior to arrival Differential diagnosis includes but is not limited to: ACS, STEMI, pneumonia, pneumothorax, URI, sinusitis, anxiety, vasospasm, pancreatitis Relevant laboratory interpretation: White blood cells 20, troponin 18 Radiological studies: December 26, 2 days ago, CT head chest abdomen pelvis showed no evidence of dissection or aneurysm of the chest abdomen pelvis, small bilateral pleural effusions, small amount of fluid with the fissures bilateral, subpleural reticular changes noted as discussed, left atrium is again noted to be enlarged, no acute findings in the abdomen or pelvis. CTA of the chest shows no PE today, small right pleural effusion with fluid is seen in the right major fissure, mild increased markings at the right lung base suggestive of atelectasis or scarring, no other acute abnormalities. Reevaluation: 0950 patient reevaluated. Nausea has improved. Patient states Dilaudid did help with pain slightly, but she is holding left side of her chest. Patient does have a blood cell count of 23. Patient's BNP is over 6000. Patient has history of hypertrophic cardiomyopathy, patient concerned about her BNP over 6000. Patient was given Pepcid, GI cocktail, small dose of Valium IV. 0945 patient operator specialist communications is Dr. Bishop, I have spoken to Dr. Santamaria. He is aware the patient, recommends admit to medicine, they do not need to be counseled at this time, especially since patient had a normal cardiac cath yesterday. 0940 HOspitalist paged for admission. 1009 repaging for admission 1029 I spoken to the hospitalist, Dr Ashford. We discussed patient's intermittent trending of elevated white blood cells in the past, we discussed pediatric peptide. We will add a urine sample onto the patient, patient will beadmitted to the PCCU for observation. Patient will be informed no acute indication for narcotics, no obvious acute indication for heart failure at this time. Dr Ashford is aware that I have spoken to the operator specialist communications and no recommendations from Dr. Santamaria. Social barriers to healthcare: There are no food insecurities, there is no issuewith transportation, there are no insurance barriers Disposition: This is patient's third ER/hospital visit this week. Patient be admitted for observation for leukocytosis, elevation of B nitrated peptide. Patient has seenDr. Friend last month and had biliary stents removed as well. Lab Data Attestation: I reviewed the patient's lab results. Labs: Laboratory Results - last 24 hr 12/28/24 12/28/24 08:20 08:30 WBC 23.2 H RBC 4.28 Hgb 13.2 Hct 40.6 MCV 94.9 MCH 30.8 MCHC 32.5 RDW Std Deviation 48.7 H RDW Coeff of Damon 14.1 Plt Count 264 MPV 11.0 Immature Gran % (Auto) 0.800 Neut % (Auto) 96.1 H Lymph % (Auto) 1.6 L [place] % (Auto) 1.4 Eos % (Auto) 0.0 Baso % (Auto) 0.1 Absolute Neuts (auto) 22.3 H Absolute Lymphs (auto) 0.37 L Nucleated RBC % 0 PT Cancelled 13.6 INR Cancelled 1.0 APTT Cancelled 24.1 Sodium 136 Potassium 4.5 Chloride 104 Carbon Dioxide 18.5 L Anion Gap 14 BUN 18 Creatinine 0.87 Estim Creat Clear Calc 70.51 Est GFR (MDRD) Non-Af 83 BUN/Creatinine Ratio 20.6 H Glucose 210 H Calcium 9.7 Magnesium 1.7 Troponin T High Sens 18 H D NT pro BNP II 6238 H Lipase 33 Radiography Diagnostic Testing: Clinical Impression(s) from Imaging Studies Chest CTA 12/28/24 08:40 IMPRESSION: No evidence of pulmonary embolism. Small right pleural effusion with fluid is seen in the right major fissure. Mild increased markings at the right lung base suggestive of atelectasis and/or scarring. Reading Location: [place] [address] EKG Initial EKG: Attestation: I personally reviewed and interpreted this EKG as follows: (EKG interpretation. Normal sinus rhythm 93 beats a minute. Left axis deviation. No acute ST elevation, no acute ectopy. QTc 457) Discharge Plan Triage Chief Complaint: Chest Pain ED Provider: Edwin Cuenca Dx/Rx/DC Orders Prescriptions: No Action metoprolol succinate 25 mg [...] Patient Comments: PT HAS NOT STARTED YET ondansetron 4 mg tablet,disintegrating 4 mg PO Q8H PRN PRN (Reason: Nausea) Qty: 10 0RF Primary Care Provider: Dex Wilkinson Referrals: Dex Wilkinson MD [Primary Care Provider, Family Practice] Print Language: Macanese What to do if you have Problems For any increased pain, shortness of breath, bleeding, nausea or vomiting, chestpain, or any unexpected problems, contact your Primary Care Provider. Call [facility] ([phone]) or report to the closest Emergency Room. Call 911 if necessary. 12/28/24 1031 <Electronically signed by Edwin Cuenca DO> Cosigner Signature (if applicable): CC: Dr. Dex Wilkinson MD ~ Signed [facility] Work Phone: Discharge summary Author Emerson Sierra [facility] Note Date/Time December 31, 2024 2 :36pm [facility] Medical Records Department [address] [place] [address] Instructions for Home/Discharge Instructions 12/31/24 1058 MR#: [id number] Acct: [id number] Name: MICHELLE MITCHELL Rep #:[id number] : 1980 44 From: Emerson Arciniega PCP: Dr. Dex Wilkinson MD Status:A DM KISHA Discharge Instructions DC O2, CPAP, BIPAP needs Home O2 Discharge instructions: No Follow Up Care Test Results: Test results from this visit will be discussed in further detail at your follow- up appointment, if applicable. Discharge Plan Admission Admit Date/Time: 12/28/24 10:50 Primary Reason for Your Visit: C. difficile colitis Attending Provider: Emerson Sierra Primary Care Provider: Dex Wilkinson Consulting Providers: Carlos Ashford Discharge Orders/Prescriptions Prescriptions: New L.acidoph,saliva-B.bif-S.therm 175 mg Capsule 1 cap PO TID Qty: 0 0RF Rx Instructions: For 2 weeks Creon 24,000-76,000 -120,000 unit Capsule,Delayed Release(Dr/Ec) 2 cap PO TIDCM 30 Days Qty: 180 0RF vancomycin [Vancocin] 125 mg capsule 125 mg PO Q6H 10 Days Qty: 40 0RF Continued metoprolol succinate 25 mg tablet [...] (11)- 1 mg (42) tablets,dose pack PO BID ondansetron 4 mg tablet,disintegrating 4 mg PO Q8H PRN PRN (Reason: Nausea) Qty: 10 0RF Referrals / Follow Up: Dex Wilkinson MD [Primary Care Provider, Family Practice] - Within 1 Week Renan Stovall MD [Med Staff - Active Staff, Infectious Disease] - Within 1 Month Referral Note: As needed needed if diarrhea/abdominal continues to see persistent C. difficile Disposition Disposition (needs filled in before D/C Order can be placed): Home, Self Care 12/31/24 3836<Electronically signed by Emerson Sierra MD>Emerson Sierra MD CC: Dr. Dex Wilkinson MD; Dr. Carlos Ashford MD ~ Signed [facility] Work Phone: Discharge summary Author Emerson Sierra [facility] Note Date/Time December 31, 2024 2 :35pm [facility] Medical Records Department [address] [place] [address] Discharge Summary 12/31/24 1304 MR#: [id number] Acct: [id number] Name: MICHELLE MITCHELL Rep #:[id number] : 1980 44 From: Emerson Arciniega PCP: Dr. Dex Wilkinson MD Status:A DM KISHA Location: [facility] [place] [address] Providers Date of Admission: 12/28/24 Date of Discharge: 12/31/24 Primary Care Physician: Dr. Dex Wilkinson MD Consultations 12/30/24 16:17 Consult: Infectious Disease Routine Consulting Provider: Renan Stovall Reason for Consult: cdiff pcr positive with abd pain, diarrhea, Antigen &toxin neg EMERGENT Consult: No MD Notified: Yes Date Notified: 12/30/24 Time Notified: 16:17 Method of Notification: Text Reason For Visit: CHEST PAIN Diagnosis Discharge Diagnosis (1) Chest pain: Status: Acute Code(s): R07.9 - Chest pain, unspecified Plan 1. 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 Patient is being admitted in PCU ? Review of echocardiograms at this facility in an outside facility, her EF is 35 to 40% with RVSP of 65 to 77 mmHg with stage I-II diastolic dysfunction despite her extensive cardiac issues with edema and shortness of breath she is on Lasix as needed and Aldactone daily 12/29: Vitals within normal limit. Pulse ox 98% on room air. Leukocytosis improving. proBNP high. CTA chest shows unremarkable thoracic aorta and pulmonary vessels. Minimal right pleural effusion. Right lung base atelectasis. She had several EKGs in the chart last night. NSR 93/min, LAFB LVH, RSR?pattern suggestive of RV conduction delay. QRS 92 MS, MD 154 ms. QT 392 ms repeat EKG did not show significant change. Serial troponins 61, 57 and 31 pending. Yesterday it was 37. Patient had cardiac cath in the with normal coronary arteries. Will try to get records from . She follows with HF specialist Dr. Radu Kay and she is on heart failure regimen. She had also been evaluated in [facility] before but she does not want to go there anymore. She has single-lead ICD. Forms Builder consulted 12/30: Discussed with operator specialist communications. Chest pain is resolved with Toradol. Upper abdominal pain/diarrhea secondary to C. difficile colitis: Patient raise concern of pancreatitis for which serum lipase was done which is normal. She also has diarrhea started about 9-10 times which is better. Stool for enteric pathogen panel and C. difficile were ordered. Acute pancreatitis ruled out. Lactobacillus and Creon ordered. Patient also given option for discharge and follow-up with PCP tomorrow morning for pain management. Later on, C. difficilePCR positive but toxins are pending. Patient does not have leukocytosis. 12/31: C. difficile toxin and antigen A and B are negative. I had discussion with Dr. Stovall, infectious disease relationship consultant. We agree that in view of positive symptoms of abdominal pain diarrhea and leukocytosis even though leukocytosis got better on its own before starting vancomycin oral on 12/30. Hehad advised 10 days of oral vancomycin and prescription sent to her pharmacy 2. Leukocytosis secondary to C. difficile colitis ? CT chest ordered described above. Being monitored off antibiotic leukocytosis improving. 12/30: Leukocytosis resolved. Lactic acid 1.9. Not suspicious for any fever. 12/31: Retrospectively with C. difficile infection but leukocytosis resolved even before restarting the vancomycin yesterday afternoon. 3. Extensive GI evaluations with possible IBD versus IBS/GERD. She had a history of chronic abdominal pain and failed celiac plexus block by Dr. Dennison in summer this year. She was admitted in September 2023 for upper abdominal pain. ? 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 Subsequent MRCP was unremarkable ? Continue with her PPI and Carafate 12/30: Had extensive discussion with Dr. Myles. He said he had done several repeated investigations which does not confirm any correlate for pancreatitis. She wanted different pain management rather than Dr. Dennison. Advised follow-up with PCP 4. Anxiety ? Continue with Xanax DVT: Lovenox Discharge medication reconciliation done. Discharge follow-up instructions completed. Discharge process discussed with the patient and all questions wereanswered to patient's satisfaction. Follow with PCP in 1 to 2 weeks Total time spent, exact 35 minutes on discharge meds reconciliation, examination, coordination of care with nurses and ancillary staff, review of imaging and blood test and discussion with the patient on follow-up instructions. Microbiology Past 72 Hours 12/30/24 10:12 Stool Clostridioides difficile (PCR) - Final 12/29/24 19:34 Mucosa - Nasopharyngeal SARS-CoV-2, Influenza & RSV (PCR) - Final Laboratory Results 12/29/24 09:23: Lipase 16 12/29/24 17:52: Lactic Acid 1.9 12/30/24 10:57: WBC 9.9, RBC 3.76 L, Hgb 11.7 L, Hct 35.5 L, MCV 94.4, MCH 31.1,MCHC 33.0, RDW Std Deviation 49.7 H, RDW Coeff of Damon 14.4, Plt Count 257, MPV 10.7, Immature Gran % (Auto) 0.700, Neut % (Auto) 76.0 H, Lymph % (Auto) 15.8 L,[place] % (Auto) 4.2, Eos % (Auto) 2.6, Baso % (Auto) 0.7, Absolute Neuts (auto) 7.5, Absolute Lymphs (auto) 1.56, Nucleated RBC % 0 Medications at Discharge Home Medications alprazolam 0.5 [...] 25 mg PO DAILY WATER PILL 08/20/24 empagliflozin 10 mg tablet (Jardiance) 10 mg PO QDAY 10/12/24 furosemide 20 mg tablet (Lasix) 20 mg PO QDAY PRN edema 10/17/24 ondansetron 4 mg disintegrating tablet 4 mg PO Q8H PRN PRN Nausea #10 tabs 11/25/24 varenicline tartrate 0.5 mg (11)-1 mg (42) tablets in a dose pack tab PO BID smoking cessation 11/25/24 L.acidophil,salivari-Bifido bifidum-Strep thermoph 175 mg capsule 1 cap PO TID #0 caps 12/31/24 opnogq-yaenrazx-uqxrnip 24,000-76,000-120,000 unit capsule,delayed rel (Creon) 2cap PO TIDCM 1 month #180 caps 12/31/24 vancomycin 125 mg capsule (Vancocin) 125 mg PO Q6H 10 days #40 caps 12/31/24 Physical Exam Narrative Seen and examined Patient chest pain has resolved. Abdominal pain still there but better. Diarrhea has improved about 2-3 times today. Serum lipase normal. Physical exam General: Alert, Oriented x3, Cooperative. BMI 21.5 kg/m? HEENT: Atraumatic, PERRLA, EOMI, Normocephalic. Oral: No Gingival or Mucosal Lesions/ Ulcerations Neck: Supple, No JVD, Negative Carotid Bruits Chest wall/Lungs: Air entry diminished in bilateral lung bases. No crepitation/rhonchi Cardiovascular: Right subclavicular single-lead AICD. S1-S2 regular, Abdomen: Mild upper abdominal tenderness, bowel Sounds Present, Soft, nondistended : No dysuria. No renal angle tenderness. No suprapubic tenderness. Extremities: No edema, Capillary Refill Less than 3 Seconds Skin: No rashes, No breakdown Musculoskeletal: No Tenderness to Palpation of Joints or Extremities. Decreasedmuscle mass of extremities Neurological: Cranial nerves II-XII grossly intact, DTR 2+/4. No acute focal neurological deficit. Psych/Mental Status: Mild pain Weight / BMI Weight Weight: 125 lb 3.561 oz Body Mass Index (BMI) 21.4 ABG / Lab / Microbiology Data 12/30/24 10:57 12/29/24 05:32 Microbiology: Microbiology 12/30/24 10:12 Stool Enteric Bacteriology - Final 12/30/24 10:12 Stool C. difficile GDH Antigen & Toxins - Final 12/30/24 10:12 Stool Clostridioides difficile (PCR) - Final 12/29/24 19:34 Mucosa - Nasopharyngeal SARS-CoV-2, Influenza & RSV (PCR) - Final D/C Instructions DC O2, CPAP, BIPAP Needs Home O2 Discharge instructions: No Meaningful Use Info Meaningful Use Meaningful Use Diagnoses (Choose all that apply): None applicable Discharge Plan Admission Admit Date/Time: 12/28/24 10:50 Primary Reason for Your Visit: C. difficile colitis Attending Provider: Emerson Sierra Primary Care Provider: Dex Wilkinson Consulting Providers: Carlos Ashford Discharge Orders/Prescriptions Prescriptions: New L.acidoph,saliva-B.bif-S.therm 175 mg Capsule 1 cap PO TID Qty: 0 0RF Rx Instructions: For 2 weeks Creon 24,000-76,000 -120,000 unit Capsule,Delayed Release(Dr/Ec) 2 cap PO TIDCM 30 Days Qty: 180 0RF vancomycin [Vancocin] 125 mg capsule 125 mg PO Q6H 10 Days Qty: 40 0RF Continued metoprolol succinate 25 mg tablet [...] (11)- 1 mg (42) tablets,dose pack PO BID ondansetron 4 mg tablet,disintegrating 4 mg PO Q8H PRN PRN (Reason: Nausea) Qty: 10 0RF Referrals / Follow Up: Dex Wilkinson MD [Primary Care Provider, Family Practice] - Within 1 Week Disposition Disposition (needs filled in before D/C Order can be placed): Home, Self Care Charges/Coding Visit Charges Inpatient E&M: 14018 Disch Hosp >30min 12/31/24 1435 <Electronically signed by Emerson Sierra MD> Cosigner Signature (if applicable): CC: Dr. Dex Wilkinson MD; Dr. Emerson Sierra MD~ Signed [facility] Work Phone: Evaluation noteNo assessment information available [facility] Work Phone: Evaluation note* Diagnosis Pre-operative examination- [...] (MICKI)- [facility] Diagnosis Pre-operative examination- Primary Preoperative examination, [...] unspecified- Primary [facility] Diagnosis Hypertrophic cardiomegaly- Primary Chronic heart failure with preserved ejection fraction (HFpEF) Cardiomyopathy, hypertrophic nonobstructive (Multi) Other primary cardiomyopathies History of pulmonary embolism Personal history of venous thrombosis and embolism Other ascites Atypical chest pain Other chest pain documented in this encounter [facility] Work Phone: Evaluation note* Diagnosis Heart failure, unspecified documented in this encounter [facility] Work Phone: Evaluation note* Diagnosis Acute exacerbation of chronic heart failure- Primary Acute exacerbation of chronic heart failure Systolic congestive heart failure, unspecified HF chronicity Pneumonia of left lower lobe due to infectious organism Other constipation documented in this encounter [facility] Work Phone: Evaluation note* Diagnosis Cardiomyopathy, hypertrophic nonobstructive (Multi) Other primary cardiomyopathies documented in this encounter [facility] Work Phone: Evaluation note* Diagnosis Cardiomyopathy, hypertrophic nonobstructive (Multi) Other primary cardiomyopathies History of pulmonary embolism- Primary Personal history of venous thrombosis and embolism Cardiomyopathy, hypertrophic nonobstructive (Multi) Other primary cardiomyopathies Tobacco use Mild intermittent asthma without complication ([facility]) documented in this encounter [facility] Work Phone: Evaluation note* Diagnosis Cardiomyopathy, hypertrophic nonobstructive (Multi) Other primary cardiomyopathies Chest pain- Primary Unspecified chest pain Chest pain, unspecified type ICD (implantable cardioverter-defibrillator) in place Cardiomyopathy, hypertrophic nonobstructive (Multi) Other primary cardiomyopathies Obstructive hypertrophic cardiomyopathy (Multi) Chest pain, unspecified type documented in this encounter [facility] Work Phone: evaluation note* Diagnosis Cardiomyopathy, hypertrophic nonobstructive (Multi) Other primary cardiomyopathies Chest pain, unspecified type ICD (implantable cardioverter-defibrillator) in place Cardiomyopathy, hypertrophic nonobstructive (Multi) Other primary cardiomyopathies Obstructive hypertrophic cardiomyopathy (Multi) Defibrillator discharge- Primary Observation for other specified suspected conditions Atrial fib/flutter, transient (Multi) Cardiomyopathy, hypertrophic nonobstructive (Multi) Other primary cardiomyopathies HFrEF (heart failure with reduced ejection fraction) (Multi) Encounter for other specified special examinations C. difficile colitis C. difficile colitis Anxiety Anxiety state, unspecified Chest pain Unspecified chest pain Cardiomyopathy, hypertrophic nonobstructive (Multi) Other primary cardiomyopathies Tachy-mary syndrome (Multi) Sinoatrial node dysfunction Defibrillator discharge Observation for other specified suspected conditions Atrial fib/flutter, transient (Multi) Cardiomyopathy, hypertrophic nonobstructive (Multi) Other primary cardiomyopathies HFrEF (heart failure with reduced ejection fraction) (Multi) documented in this encounter [facility] Work Phone: Evaluation note* Diagnosis Cardiomyopathy, hypertrophic nonobstructive (Multi) Other primary cardiomyopathies Chest pain, unspecified type ICD (implantable cardioverter-defibrillator) in place Cardiomyopathy, hypertrophic nonobstructive (Multi) Other primary cardiomyopathies Obstructive hypertrophic cardiomyopathy (Multi) ACS (acute coronary syndrome) (Multi) Intermediate coronary syndrome documented in this encounter [facility] Work Phone: History and physical note Author Carlos Ashford [facility] Note Date/Time December 28, 2024 4 :09pm [facility] Medical Records Department [address] [place] [address] H&P Exam - Hospitalist 12/28/24 1546 MR#: [id number] Acct: [id number] Name: MICHELLE MITCHELL Rep #:[id number] : 1980 44 From: Carlos pena MD PCP: Dr. Dex Wilkinson MD Status:A DM KISHA Location: [place] [address] HPI - General General Date of Admission: 12/28/24 HPI Narrative MICHELLE MITCHELL, is a 44 F who presents to the hospital initially with chest pain she describes the pain as burning in his substernal with radiation to her left side under her left breast. She says that she has shortness of breath as well as orthopnea. She denies any chest pain to palpation, no major lightheadedness but says that she goes between being hot and cold. She does have chronic intermittent diarrhea but she has a lot of GI issues that she sees gastroenterology for including episodes of pancreatitis as well as gallstones. She has had a couple of ERCPs as well as MRCP's. She has had previous cholecystectomies of note CT scan today is unremarkable of her abdomen and pelvis and lipase is normal. As we were discussing about her chest pain she started complaining about epigastric pain the epigastric pain seem to be a little bit more tender with palpation with my hands and it was with palpation tothe stethoscope. Most of her pain was in the mid epigastric region and she did have abdominal pain with rectus muscle activation. She does have an extensive familial cardiac history with her father and sister both requiring heart transplants. She does have a slightly reduced ejection fraction of 40% with stage I-II diastolic dysfunction and moderate to severe pulmonary hypertension. She has not required any oxygen currently and does not have any lower extremity edema, proBNP is elevated to 6000 But she has no other signs or symptoms at themoment consistent with a heart failure exacerbation. CTA of the chest was negative for PE. [facility] Medical History (Updated 12/28/24 @ 16:[address] 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 Ovarian cancer GERD [...] QDAY PRN rosario a 10/17/24 Unknown History ondansetron 4 mg disintegrating 4 mg PO Q8H PRN PRN Na usea #10 tabs 11/25/24 Unknown Rx tablet varenicline tartrate 0.5 mg (11)-1 tab PO BID smoking cessation 11/25/24 12/27/24 History mg (42) tablets in a dose pack Allergy/AdvReac Type Severity Reaction Status Date / Time gabapentin (From Neurontin) Allergy Severe Anaphylaxis Verified 12/28/24 08:12 morphine Allergy Mild Hives Verified 12/28/24 08:12 codeine Allergy Hives Verified 12/28/24 08:12 erythromycin base Allergy PT UNSURE Verified 12/28/24 08:12 OF REACTION Fish Containing Products Allergy Other Verified 12/28/24 08:12 levofloxacin Allergy PT UNSURE Verified 12/28/24 08:12 OF REACTION shellfish derived Allergy Other Verified 12/28/24 08:12 tramadol Allergy Hives Verified 12/28/24 08:12 trimethobenzamide (From Allergy Other Verified 12/28/24 08:12 Tigan) hydrocodone (From Vicodin) AdvReac Other Verified 12/28/24 08:12 metoclopramide (From Reglan) AdvReac Other Verified 12/28/24 08:12 Family History Father Heart disease Idiopathic hypertrophic [...] house current occupational status: employed Smoking Status: Former smoker how long ago did patient quit smokin months ago alcohol intake: former substance use type: does not use caffeine: Yes ROS Constitutional Constitutional: Reports chills; Denies fatigue, fever(s) or malaise Eyes Eyes: Denies blurry vision ENT HEENT: Denies headache(s) or nasal discharge Cardiovascular Cardiovascular: Reports chest pain, dyspnea on exertion and orthopnea; Denies edema or syncope Respiratory/Chest Respiratory/Chest: Denies cough, shortness of breath at rest or shortness of breath with exertion Gastrointestinal Gastrointestinal: Reports abdominal pain and loose stools; Denies coffee ground emesis, constipation, diarrhea, hematochezia, nausea or vomiting Genitourinary Genitourinary: Denies dysuria Neurologic Neurologic: Denies focal weakness, numbness or tremor(s) Psychiatric Psychiatric: Denies anxiety or depression Vital Signs Vital Signs Vital Signs: 12/28/24 08:07 12/28/24 08:12 12/28/24 09:17 Temperature 95.7 F L Temperature Source Axillary Pulse Rate 96 82 Respiratory Rate 17 19 H Blood Pressure 141/93 H 127/86 H Blood Pressure Mean 109 99 Blood Pressure Source Blood Pressure Position Blood Pressure Location Pulse Ox 100 98 Oxygen Delivery Method Room Air Room Air Room Air 12/28/24 10:00 12/28/24 11:00 12/28/24 11:59 Temperature 95.7 F L Temperature Source Pulse Rate 74 75 75 Respiratory Rate 21 H 20 H 20 H Blood Pressure 121/80 H 123/85 H 123/85 H Blood Pressure Mean 93 97 97 Blood Pressure Source Blood Pressure Position Blood Pressure Location Pulse Ox 98 99 99 Oxygen Delivery Method Room Air 12/28/24 12:00 Temperature 98.1 F Temperature Source Oral Pulse Rate 77 Respiratory Rate 17 Blood Pressure 121/89 H Blood Pressure Mean 99 Blood Pressure Source Monitor Blood Pressure Position Semi-Fowlers Blood Pressure Location Right Arm Pulse Ox 99 Oxygen Delivery Method Room Air Weight Weight: 125 lb 3.561 oz Body Mass Index (BMI) 21.4 Physical Exam Narrative General: Alert, Oriented x3, Cooperative, No apparent distress HEENT: Atraumatic, PERRLA, EOMI, Normocephalic Oral: Moist Mucosa Neck: Supple, No JVD Lungs: Clear to auscultation, Normal air movement, No rhonchi, No wheeze, No rales Cardiovascular: Regular rate, Regular Rhythm, Normal S1, Normal S2, No murmurs Abdomen: Soft, severely tender to manual palpation mildly tender to stethoscope palpation, epigastric pain with rectus muscle activation, Non-Distended, No Hepato-splenomegaly Extremities: No edema, Capillary Refill Less than 3 Seconds Skin: No rashes, No breakdown Musculoskeletal: No Tenderness to Palpation of Joints or Extremities Neurological: No focal neurological deficits, moves all extremities Psych/Mental Status: Normal Affect, Appropriate Results Lab / Micro Data 12/28/24 08:20 12/28/24 08:20 Labs: Laboratory Results - last 24 hr 12/28/24 08:20: WBC 23.2 H, RBC 4.28, Hgb 13.2, Hct 40.6, MCV 94.9, MCH 30.8, MCHC 32.5, RDW Std Deviation 48.7 H, RDW Coeff of Damon 14.1, Plt Count 264, MPV 11.0, Immature Gran % (Auto) 0.800, Neut % (Auto) 96.1 H, Lymph % (Auto) 1.6 L, [place] % (Auto) 1.4, Eos % (Auto) 0.0, Baso % (Auto) 0.1, Absolute Neuts (auto) 22.3 H, Absolute Lymphs (auto) 0.37 L, Nucleated RBC % 0, PT Cancelled, INR Cancelled, APTT Cancelled, Sodium 136, Potassium 4.5, Chloride 104, Carbon Dioxide 18.5 L, Anion Gap 14, BUN 18, Creatinine 0.87, Estim Creat Clear Calc 70.51, Est GFR (MDRD) Non-Af 83, BUN/Creatinine Ratio 20.6 H, Glucose 210 H, Calcium 9.7, Magnesium 1.7, Troponin T High Sens 18 H D, NT pro BNP II 6238 H, Lipase 33 12/28/24 08:30: PT 13.6, INR 1.0, APTT 24.1 12/28/24 10:40: Urine Color Yellow, Urine Clarity Clear, Urine pH 7.0, Ur Specific [place] 1.010, Urine Protein 30 H, Urine Glucose (UA) 1000 H, Urine Ketones Negative, Urine Occult Blood 25 H, Urine Nitrite Negative, Urine Bilirubin Negative, Urine Urobilinogen Normal, Ur Leukocyte Esterase Negative, Urine RBC 0-5 SEEN, Urine WBC 0 SEEN, Ur Squamous Epith Cells 0-5 SEEN, Urine Bacteria 0 SEEN, Urine Mucus 0 SEEN 12/28/24 10:53: Troponin T Hi Sens 2 Hr Cancelled 12/28/24 12:56: Troponin T Hi Sens 4Hr 37 H Imaging Radiology Impression Chest CTA 12/28/24 08:40 IMPRESSION: No evidence of pulmonary embolism. Small right pleural effusion with fluid is seen in the right major fissure. Mild increased markings at the right lung base suggestive of atelectasis and/or scarring. Reading Location: [facility] Assessment & Plan Assessment/Plan (1) Chest pain: PLAN: Plan 1. Chest pain in the setting of known cardiomyopathy and pulmonary hypertension ? Currently not hypoxic or requiring oxygen ? Not in respiratory distress ? There is no lower extremity edema but she states that most of her edema when she has it collects in her abdomen ? Will obtain records from she had a heart catheter yesterday with normal coronary arteries ? Review of echocardiograms at this facility in an outside facility, her EF is 35 to 40% with RVSP of 65 to 77 mmHg with stage I-II diastolic dysfunction despite her extensive cardiac issues with edema and shortness of breath she is on Lasix as needed and Aldactone daily ? EKG is nonischemic and troponins 18 and second troponin is 37 ? Continue with Jardiance 2. Leukocytosis ? Unclear etiology ? She is afebrile ? There is no signs or symptoms of infection either respiratory, abdominal, urinary, or skin ? Therefore we will monitor off antibiotics 3. Extensive GI evaluations with possible IBD versus IBS/GERD ? 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 Subsequent MRCP was unremarkable ? Continue with her PPI and Carafate 4. Anxiety ? Continue with Xanax DVT: Lovenox 75 minutes was spent on direct patient care, including documentation as well as chart review and collaboration with colleagues Charges/Coding Visit Charges Inpatient E&M: 45253 Init Hosp L3 12/28/24 1602 <Electronically signed by Carlos Ashford MD> Cosigner Signature (if applicable): CC: Dr. Dex Wilkinson MD; Dr. Carlos Ashford MD~ Signed [facility] Work Phone: Hospital course Narrative No data available for this section [facility] Hospital Discharge instructions Additional Instructions See your dentist as soon as possible.[facility] Work Phone: Hospital Discharge instructions Additional Instructions Return if feeling worse. Follow-up with your doctor if not improving. All your test tonight were unremarkable.[facility] Work Phone: Hospital Discharge instructions Additional Instructions Please follow-up with cardiology secondary to your hypertrophic obstructive cardiomyopathy and return to the ER should you have any further [facility] Work Phone: Hospital Discharge instructions Additional Instructions You do have some pathology, you do have some ascites, a small right pleural effusion, you need to follow-up outpatient. Return here for worsening symptoms.[facility] Work Phone: Hospital Discharge instructions Additional Instructions Your CT scan showed inflammation of your ileum concerning for inflammatory bowel disease. Please follow-up with gastroenterology to discuss further evaluation of this. Take the prescribed medication as directed to help control symptoms and return to the ER should you have any further [facility] Work Phone: Hospital Discharge instructions Additional Instructions Follow-up with primary care physician. At this point no clear reason for your pain however suspect it was likely secondary to passed kidney stone. Return back to the ED if symptoms change or worsen. You received a Toradol here in the emergency department. No ibuprofen until 6 PM given you received Toradol.[facility] Work Phone: Hospital Discharge instructionsAdditional Instructions Date of Discharge: 09/14/24[facility] Work Phone: Hospital Discharge instructionsAmbulatory Orders* MAMMA LOGIST Location: None [facility] Work Phone: Hospital Discharge instructions* Attachments The following attachments cannot be sent through Care Everywhere. * Heart Failure Discharge Instructions, Adult (Macanese) [facility] Work Phone: Hospital Discharge instructionsAdditional Instructions Thank you for trusting us with your care today! Please take Tylenol (2 pills, 650 mg), ibuprofen (2 pills, 400 mg) every 6 hours as needed for pain and fever control. Please return to the emergency department if your symptoms change or worsen. Please follow with your primary care physician for further outpatient evaluation and management.[facility] Work Phone: Hospital Discharge instructionsAdditional Instructions Take your Lasix as previously directed. Stop smoking. Use your inhaler every 4 hours as previously directed. Follow-up with pain management as well has gastroenterology, Dr. Myles.[facility] Work Phone: Hospital Discharge instructionsAdditional Instructions Date of Discharge: 12/31/24[facility] Work Phone: Hospital Discharge instructions* Attachments The following attachments cannot be sent through Care Everywhere. * ICD Generator Change Discharge Instructions (Macanese) documented in this [facility] Work Phone: Progress note Author Emerson Sierra [facility] Note Date/Time December 29, 2024 7 :14pm [facility] Medical Records Department [address] [place] [address] Progress Note - Hospitalist 12/29/24924 MR#: [id number] Acct: [id number] Name: MICHELLE MITCHELL Rep #:[id number] : 1980 44 From: Emerson Arciniega PCP: Dr. Dex Wilkinson MD Status:A DM KISHA Location: [place] [address] Objective Data Objective Data Vital Signs: Vital Signs Temp Pulse Resp BP Pulse Ox O2 Del Method 97.9 F 101 H 18 127/96 H 98 Room Air 12/29/24 08:15 12/29/24 08:15 12/29/24 08:15 12/29/24 08:15 12/29/24 08:15 12/29/24 08:16 Oxygen Delivery Method Room Air Weight: 125 lb 3.561 oz Body Mass Index (BMI) 21.4 Intake & Output: Intake and Output for Last 24 Hours 12/27/24 12/28/24 12/29/24 23:59 23:59 23:59 Intake Total 410 / 410 Balance 410 / 410 Lab / Micro Data 12/29/24 05:32 12/29/24 05:32 Labs: Laboratory Results - last 24 hr 12/28/24 10:40: Urine Color Yellow, Urine Clarity Clear, Urine pH 7.0, Ur Specific [place] 1.010, Urine Protein 30 H, Urine Glucose (UA) 1000 H, Urine Ketones Negative, Urine Occult Blood 25 H, Urine Nitrite Negative, Urine Bilirubin Negative, Urine Urobilinogen Normal, Ur Leukocyte Esterase Negative, Urine RBC 0-5 SEEN, Urine WBC 0 SEEN, Ur Squamous Epith Cells 0-5 SEEN, Urine Bacteria 0 SEEN, Urine Mucus 0 SEEN 12/28/24 10:53: Troponin T Hi Sens 2 Hr Cancelled 12/28/24 12:56: Troponin T Hi Sens 4Hr 37 H 12/29/24 05:32: WBC 16.3 H, RBC 3.79 L, Hgb 11.9 L, Hct 35.8 L, MCV 94.5, MCH 31.4, MCHC 33.2, RDW Std Deviation 50.0 H, RDW Coeff of Damon 14.5, Plt Count 234,MPV 10.8, Immature Gran % (Auto) 0.400, Neut % (Auto) 86.6 H, Lymph % (Auto) 9.5L, [place] % (Auto) 2.7, Eos % (Auto) 0.4, Baso % (Auto) 0.4, Absolute Neuts (auto)14.1 H, Absolute Lymphs (auto) 1.55, Nucleated RBC % 0, Sodium 136, Potassium 4.3, Chloride 104, Carbon Dioxide 20.0 L, Anion Gap 12, BUN 21 H, Creatinine 0.79, Estim Creat Clear Calc 77.66, Est GFR (MDRD) Non-Af 94, BUN/Creatinine Ratio 26.6 H, Glucose 96, Calcium 9.4, Troponin T High Sens 61 H* D 12/29/24 07:31: Troponin T Hi Sens 2 Hr 57 H* Physical Exam Narrative Seen and examined Patient complain of severe chest pain, 9/10 like elephant sitting on the chest from xiphisternum to left shoulder and throat in the triangular region. Complained of dyspnea on exertion even going to bathroom but not at rest. She also had vomited 1 yesterday night and 1 today. Had fever 3 days ago. Physical exam General: Alert, Oriented x3, Cooperative. BMI 21.5 kg/m? HEENT: Atraumatic, PERRLA, EOMI, Normocephalic. Oral: No Gingival or Mucosal Lesions/ Ulcerations Neck: Supple, No JVD, Negative Carotid Bruits Chest wall/Lungs: Air entry diminished in bilateral lung bases. No crepitation/rhonchi Cardiovascular: Right subclavicular single-lead AICD. S1-S2 regular, Abdomen: Mild upper abdominal/xiphisternal tenderness bowel Sounds Present, Soft, nondistended : No dysuria. No renal angle tenderness. No suprapubic tenderness. Extremities: No edema, Capillary Refill Less than 3 Seconds Skin: No rashes, No breakdown Musculoskeletal: No Tenderness to Palpation of Joints or Extremities. Decreasedmuscle mass of extremities Neurological: Cranial nerves II-XII grossly intact, DTR 2+/4. No acute focal neurological deficit. Psych/Mental Status: In pain Assessment & Plan Assessment/Plan (1) Chest pain: PLAN: Plan 1. 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 Patient is being admitted in PCU ? Review of echocardiograms at this facility in an outside facility, her EF is 35 to 40% with RVSP of 65 to 77 mmHg with stage I-II diastolic dysfunction despite her extensive cardiac issues with edema and shortness of breath she is on Lasix as needed and Aldactone daily 12/29: Vitals within normal limit. Pulse ox 98% on room air. Leukocytosis improving. proBNP high. CTA chest shows unremarkable thoracic aorta and pulmonary vessels. Minimal right pleural effusion. Right lung base atelectasis. She had several EKGs in the chart last night. NSR 93/min, LAFB LVH, RSR?pattern suggestive of RV conduction delay. QRS 92 MS, MD 154 ms. QT 392 ms repeat EKG did not show significant change. Serial troponins 61, 57 and 31 pending. Yesterday it was 37. Patient had cardiac cath in the with normal coronary arteries. Will try to get records from . She follows with HF specialist Dr. Radu Kay and she is on heart failure regimen. She had also been evaluated in [facility] before but she does not want to go there anymore. She has single-lead ICD. Forms Builder consulted 2. Leukocytosis ? Does not look like infectious in etiology probably inflammatory. CT chest ordered described above. Being monitored off antibiotic leukocytosis improving. 3. Extensive GI evaluations with possible IBD versus IBS/GERD. She had a history of chronic abdominal pain and failed celiac plexus block by Dr. Dennison in summer this year. She was admitted in September 2023 for upper abdominal pain. ? 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 Subsequent MRCP was unremarkable ? Continue with her PPI and Carafate 4. Anxiety ? Continue with Xanax DVT: Lovenox Charges/Coding Visit Charges Inpatient E&M: 31670 Subs Hosp L2 12/29/24 0941 <Electronically signed by Emerson Sierra MD> Cosigner Signature (if applicable): CC: ~ Signed ADDENDUM by Dr. Emerson Sierra MD on 12/29/24 at 1914 Addendum Total time of the visit including total time spent in counseling or coordinationof care, (more than 50% of the total time, spent in obtaining medical information from nurses and other ancillary care providers ,explaining to the patient about labs, imaging, diagnosis and management of active complex medical conditions), discussion with operator specialist communications and gastroenterology, review of labs and imaging is 40 minutes. Visit Charges Inpatient E&M: 04620 Subs Hosp L3 12/29/241913<Electronically signed by Emerson Sierra MD> Cosigner Signature (if applicable): cc: ~* Signed [facility] Work Phone: Progress note Author Emerson Sierra [facility] Note Date/Time December 29, 2024 7 :14pm [facility] Medical Records Department [address] [place] [address] Progress Note - Hospitalist 12/29/241911 MR#: [id number] Acct: [id number] Name: MICHELLE MITCHELL Rep #:[id number] : 1980 44 From: Emerson Arciniega PCP: Dr. Dex Wilkinson MD Status:A DM KISHA Location: [place] [address] Hospitalist Note Later in the afternoon, patient complained that she had 10 diarrhea episodes. As per nursing staff she saw that she went to bathroom and had a bowel movement. Now she complained that chest pain is gone but having abdominal pain with radiation to the back and she felt like pancreatitis. She is asking to see Dr. Myles Consulted Dr. Myles. After my discussion with Dr. Myles he said patient had detailed evaluation and had all the testings done and he does not have anything more to offer. Patient in the past not satisfied with pain management Dr. Dennison and wanted to see another pain management doctor She is also having nausea and vomiting Symptomatic management with antiemetic and pain management. Serum lipase ordered. Enteric pathogen panel and C. difficile ordered. Discussed with the nursing staff 12/29/241913 <Electronically signed by Emerson Sierra MD> Cosigner Signature (if applicable): CC: ~ Signed [facility] Work Phone: Progress note Author Emerson Sierra [facility] Note Date/Time December 30, 2024 1 2:07pm [facility] Medical Records Department [address] [place] [address] Progress Note - Hospitalist 12/30/24 1124 MR#: [id number] Acct: [id number] Name: MICHELLE MITCHELL Rep #:[id number] : 1980 44 From: Emerson Arciniega PCP: Dr. Dex Wilkinson MD Status:A DM KISHA Location: [place] [address] Objective Data Objective Data Vital Signs: Vital Signs Temp Pulse Resp BP Pulse Ox O2 Del Method 97.1 F L 67 18 114/75 98 Room Air 12/30/24 08:39 12/30/24 08:40 12/30/24 08:39 12/30/24 08:39 12/30/24 08:39 12/30/24 08:39 Oxygen Delivery Method Room Air Weight: 125 lb 3.561 oz Body Mass Index (BMI) 21.4 Intake & Output: Intake and Output for Last 24 Hours 12/28/24 12/29/24 12/30/24 23:59 23:59 23:59 Intake Total 410 / 410 100 / 100 Balance 410 / 410 100 / 100 Lab / Micro Data 12/30/24 10:57 12/29/24 05:32 Labs: Laboratory Results - last 24 hr 12/29/24 09:23: Lipase 16 12/29/24 17:52: Lactic Acid 1.9 12/30/24 10:57: WBC 9.9, RBC 3.76 L, Hgb 11.7 L, Hct 35.5 L, MCV 94.4, MCH 31.1,MCHC 33.0, RDW Std Deviation 49.7 H, RDW Coeff of Damon 14.4, Plt Count 257, MPV 10.7, Immature Gran % (Auto) 0.700, Neut % (Auto) 76.0 H, Lymph % (Auto) 15.8 L,[place] % (Auto) 4.2, Eos % (Auto) 2.6, Baso % (Auto) 0.7, Absolute Neuts (auto) 7.5, Absolute Lymphs (auto) 1.56, Nucleated RBC % 0 Micro: Microbiology 12/30/24 10:12 Stool Clostridioides difficile (PCR) - Final 12/29/24 19:34 Mucosa - Nasopharyngeal SARS-CoV-2, Influenza & RSV (PCR) - Final Physical Exam Narrative Seen and examined Patient chest pain has resolved but he started having abdominal pain mainly upper yesterday afternoon. She also had diarrhea but has not slowed down. She had 1 in the morning and stool samples were sent. Serum lipase normal. Upper abdominal pain she complained is more like cramps. Physical exam General: Alert, Oriented x3, Cooperative. BMI 21.5 kg/m? HEENT: Atraumatic, PERRLA, EOMI, Normocephalic. Oral: No Gingival or Mucosal Lesions/ Ulcerations Neck: Supple, No JVD, Negative Carotid Bruits Chest wall/Lungs: Air entry diminished in bilateral lung bases. No crepitation/rhonchi Cardiovascular: Right subclavicular single-lead AICD. S1-S2 regular, Abdomen: Mild upper abdominal tenderness, bowel Sounds Present, Soft, nondistended : No dysuria. No renal angle tenderness. No suprapubic tenderness. Extremities: No edema, Capillary Refill Less than 3 Seconds Skin: No rashes, No breakdown Musculoskeletal: No Tenderness to Palpation of Joints or Extremities. Decreasedmuscle mass of extremities Neurological: Cranial nerves II-XII grossly intact, DTR 2+/4. No acute focal neurological deficit. Psych/Mental Status: In pain Assessment & Plan Assessment/Plan (1) Chest pain: PLAN: Plan 1. 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 Patient is being admitted in PCU ? Review of echocardiograms at this facility in an outside facility, her EF is 35 to 40% with RVSP of 65 to 77 mmHg with stage I-II diastolic dysfunction despite her extensive cardiac issues with edema and shortness of breath she is on Lasix as needed and Aldactone daily 12/29: Vitals within normal limit. Pulse ox 98% on room air. Leukocytosis improving. proBNP high. CTA chest shows unremarkable thoracic aorta and pulmonary vessels. Minimal right pleural effusion. Right lung base atelectasis. She had several EKGs in the chart last night. NSR 93/min, LAFB LVH, RSR?pattern suggestive of RV conduction delay. QRS 92 MS, MD 154 ms. QT 392 ms repeat EKG did not show significant change. Serial troponins 61, 57 and 31 pending. Yesterday it was 37. Patient had cardiac cath in the which with normal coronary arteries. Will try to get records from . She follows with HF specialist Dr. Radu Kay and she is on heart failure regimen. She had also been evaluated in [facility] before but she does not want to go there anymore. She has single-lead ICD. Forms Builder consulted 12/30: Discussed with operator specialist communications. Chest pain is resolved with Toradol. Upper abdominal pain since yesterday: Patient raise concern of pancreatitis for which serum lipase was done which is normal. She also has diarrhea started about 9-10 times which is better. Stool for enteric pathogen panel and C. difficile were ordered. Acute pancreatitis ruled out. Lactobacillus and Creon ordered. Patient also given option for discharge and follow-up with PCP tomorrow morning for pain management. Later on, C. difficile PCR positive but toxins are pending. Patient does not have leukocytosis. Will follow for toxin. 2. Leukocytosis ? Does not look like infectious in etiology probably inflammatory. CT chest ordered described above. Being monitored off antibiotic leukocytosis improving. 12/30: Leukocytosis resolved. Lactic acid 1.9. Not suspicious for any fever. 3. Extensive GI evaluations with possible IBD versus IBS/GERD. She had a history of chronic abdominal pain and failed celiac plexus block by Dr. Dennison in summer this year. She was admitted in September 2023 for upper abdominal pain. ? 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 Subsequent MRCP was unremarkable ? Continue with her PPI and Carafate 12/30: Had extensive discussion with Dr. Myles. He said he had done several repeated investigations which does not confirm any correlate for pancreatitis. She wanted different pain management rather than Dr. Dennison. Advised follow-up with PCP 4. Anxiety ? Continue with Xanax DVT: Lovenox Microbiology Past 72 Hours 10/19/25 10:12 Stool Clostridioides difficile (PCR) - Final 12/29/24 19:34 Mucosa - Nasopharyngeal SARS-CoV-2, Influenza & RSV (PCR) - Final Laboratory Results 12/29/24 09:23: Lipase 16 12/29/24 17:52: Lactic Acid 1.9 12/30/24 10:57: WBC 9.9, RBC 3.76 L, Hgb 11.7 L, Hct 35.5 L, MCV 94.4, MCH 31.1,MCHC 33.0, RDW Std Deviation 49.7 H, RDW Coeff of Damon 14.4, Plt Count 257, MPV 10.7, Immature Gran % (Auto) 0.700, Neut % (Auto) 76.0 H, Lymph % (Auto) 15.8 L,[place] % (Auto) 4.2, Eos % (Auto) 2.6, Baso % (Auto) 0.7, Absolute Neuts (auto) 7.5, Absolute Lymphs (auto) 1.56, Nucleated RBC % 0 Charges/Coding Visit Charges Inpatient E&M: 17630 Subs Hosp L2 12/30/24 1206 <Electronically signed by Emerson Sierra MD> Cosigner Signature (if applicable): CC: ~ Signed ADDENDUM by Dr. Emerson Sierra MD on 12/30/24 at 1207 Visit Charges Inpatient E&M: 25876 Subs Hosp L2 12/30/24 1207<Electronically signed by Emerson Sierra MD> Cosigner Signature (if applicable): cc: ~* Signed [facility] Work Phone: Progress note Author Emerson Sierra [facility] Note Date/Time December 30, 2024 4 :20pm [facility] Medical Records Department [address] [place] [address] Progress Note - Hospitalist 12/30/24 1518 MR#: [id number] Acct: [id number] Name: MICHELLE MITCHELL Rep #:[id number] : 1980 44 From: Emerson Arciniega PCP: Dr. Dex Wilkinson MD Status:A DM KISHA Location: [place] [address] Hospitalist Note C. difficile PCR positive but C. difficile A and B antigens and toxins are negative. Patient started having abdominal pain yesterday afternoon which was felt like moving from chest to abdomen. She also having diarrhea, patient claimed 10 yesterday and 1 today. She had antibiotic 3 days of amoxicillin about a month ago followed by antifungal for some pneumonia, details not available Patient has history of chronic abdominal pain and follows pain management and had celiac block as mentioned in previous note. Patient also carries diagnosis of chronic pancreatitis. Initially thought her pain is chronic abdominal pain but might be from C. difficile in the appropriate clinical setting as mentioned above. Therefore started on vancomycin 125 mg Q4 hourly. Discussed with infectious disease Dr. Stovall tomorrow. 12/30/24 1620 <Electronically signed by Emerson Sierra MD> Cosigner Signature (if applicable): CC: ~ Signed [facility] Work Phone: Reason for visit Narrative* Auth/Cert (Routine) Specialty Diagnoses / Procedures Referred By Annalisa santana Referred To Contact [facility] IN[facility]IENT Diagnoses Endocarditis Procedures [id number] [address] [place] [address] Phone: tel: Referral ID Status Reason Start Date Expiration Date Visits Re quested Visits Authorized [id number] 1 1 [facility] for visit Narrative* Cardiovascular (Routine) - Authorized Specialty Diagnoses / Procedures Referred By Annalisa santana Referred To Contact Diagnoses Heart failure, unspecified Procedures ECG 12 lead Radu Kay MD [address] [address] Phone: tel: fax: Referral ID Status Reason Start Date Expiration Date V isits Requested Visits Authorized [id number] Authorized 08/23/2024 08/23/2025 1 1 [facility] Work Phone: Reaexn for visit Narrative* Auth/Cert Specialty Diagnoses / Procedures Referred By Annalisa santana Referred To Contact Rishabh El MD [address] [place] [address] Phone: tel: fax: [facility] [id number] [place] [address] [place] [address] Referral ID Status Reason Start Date Expiration Date Visits Re quested Visits Authorized [id number] [facility] Work Phone: Reason for visit Narrative* Auth/Cert Specialty Diagnoses / Procedures Referred By Contac t Referred To Contact Diagnoses Defibrillator firing Atrial Fibrillation with RVR Procedures unknown [facility] Service [facility] [id number] [place], [place] [phone] Phone: tel: [facility] [address] [place], [place] [phone] Referral ID Status Reason Start Date Expiration Date Visits Re quested Visits Authorized [id number] 1 1 [facility] Work Phone: Reason for visit Narrative* Auth/Cert Specialty Diagnoses / Procedures Referred By Contac t Referred To Contact Diagnoses Defibrillator firing Atrial Fibrillation with RVR Procedures unknown [place] [address] Phone: tel: [facility] [phone] [place], [place] [address] Referral ID Status Reason Start Date Expiration Date Visits Re quested Visits Authorized [id number] 1 1 [facility] Work Phone: Summary Purpose Family History [...] Records Found Date Activated Date Inactivated Comments 01/10/2025 2:40 PM Question Answer Comments Plan of Care: Code Status Discussion Completed Decision Maker: Patient Date Activated Date Inactivated Comments 12/27/2024 1:24 AM 01/10/2025 2:40 PM Question Answer Comments Plan of Care: Code Status Discussion Completed Decision Maker: Patient Date Activated Date Inactivated Comments 09/21/2024 6:55 AM 12/27/2024 1:24 AM Question Answer Comments Plan of Care: Code Status Discussion Completed Decision Maker: Patient Date Activated Date Inactivated Comments 12/27/2024 1:24 AM Date Activated Date Inactivated Comments 09/21/2024 6:55 AM 12/27/2024 1:24 AM Date Activated Date Inactivated Comments 07/25/2024 10:11 [...] Will No November 02 10:05pm Power of Datastage Architect No November 02 10:05pm Advance Directive Response Recorded Date/ Time Living Will No November 13 4:21pm Power of Datastage Architect No November 13, 2021 4:21pm Advance Directive Response Recorded Date/ Time Living Will No December 16 10:45pm Power of Datastage Architect No December 16 10:45pm Advance Directive Response Recorded Date/ Time Living Will No March 09 9:21am Power of Datastage Architect No March 09, 2022 9:21am Advance Directive Response Recorded Date/ Time Living Will No December 25 9:27pm Power of Datastage Architect No December 25, 2022 9:27pm Advance Directive Response Recorded Date/ Time Living Will No July 04, 2023 8:21pm Power of Datastage Architect No July 03 8:21pm Advance Directive Response Recorded Date/ Time Living Will No October 31 11:40pm Do you have a Healthcare Power of Datastage Architect? No November 01, 2023 11:40pm Living Will No May 12, 2024 1:07am Do you have a Healthcare Power of Datastage Architect? No May 12, 2024 1:07am Living Will No July 01, 2024 8:41pm Do you have a Healthcare Power of Datastage Architect? No July 01, 2024 8:41pm Advance Directive Response Recorded Date/ Time Living Will No October 31 11:40pm Do you have a Healthcare Power of Datastage Architect? No November 01, 2023 11:40pm Living Will No May 12, 2024 1:07am Do you have a Healthcare Power of Datastage Architect? No May 12, 2024 1:07am Living Will No July 01, 2024 8:41pm Do you have a Healthcare Power of Datastage Architect? No July 01, 2024 8:41pm Do you have a Healthcare Power of Datastage Architect? No July 03, 2024 1:43pm Do you have a Healthcare Power of Datastage Architect? No July 10, 2024 11:58am Do you have a Healthcare Power of Datastage Architect? No July 20, 2024 7:24pm Advance Directive Response Recorded Date/ Time Living Will No October 31 11:40pm Do you have a Healthcare Power of Datastage Architect? No November 01, 2023 11:40pm Living Will No May 12, 2024 1:07am Do you have a Healthcare Power of Datastage Architect? No May 12, 2024 1:07am Living Will No July 01, 2024 8:41pm Do you have a Healthcare Power of Datastage Architect? No July 01, 2024 8:41pm Do you have a Healthcare Power of Datastage Architect? No July 03, 2024 1:43pm Do you have a Healthcare Power of Datastage Architect? No July 10, 2024 11:58am Do you have a Healthcare Power of Datastage Architect? No July 21, 2024 1:00am Date [...] Do you have a Healthcare Power of Datastage Architect? No May 12, 2024 1:07am Living Will No July 01, 2024 8:41pm Do you have a Healthcare Power of Datastage Architect? No July 01, 2024 8:41pm Do you have a Healthcare Power of Datastage Architect? No July 03, 2024 1:43pm Do you have a Healthcare Power of Datastage Architect? No July 10, 2024 11:58am Do you have a Healthcare Power of Datastage Architect? No July 21, 2024 1:00am Advance Directive Response Recorded Date/ Time Living Will No May 12, 2024 1:07am Do you have a Healthcare Power of Datastage Architect? No May 12, 2024 1:07am Living Will No July 01, 2024 8:41pm Do you have a Healthcare Power of Datastage Architect? No July 01, 2024 8:41pm Do you have a Healthcare Power of Datastage Architect? No July 03, 2024 1:43pm Do you have a Healthcare Power of Datastage Architect? No July 10, 2024 11:58am Do you have a Healthcare Power of Datastage Architect? No July 21, 2024 1:00am Do you have a Healthcare Power of Datastage Architect? No August 11, 2024 10:27am Advance Directive Response Recorded Date/ Time Living Will No May 12, 2024 1:07am Do you have a Healthcare Power of Datastage Architect? No May 12, 2024 1:07am Living Will No July 01, 2024 8:41pm Do you have a Healthcare Power of Datastage Architect? No July 01, 2024 8:41pm Do you have a Healthcare Power of Datastage Architect? No July 03, 2024 1:43pm Do you have a Healthcare Power of Datastage Architect? No July 10, 2024 11:58am Do you have a Healthcare Power of Datastage Architect? No July 21, 2024 1:00am Do you have a Healthcare Power of Datastage Architect? No August 11, 2024 10:27am Do you have a Healthcare Power of Datastage Architect? No August 20, 2024 3:00pm Advance Directive Response Recorded Date/ Time Living Will No May 12, 2024 1:07am Do you have a Healthcare Power of Datastage Architect? No May 12, 2024 1:07am Living Will No July 01, 2024 8:41pm Do you have a Healthcare Power of Datastage Architect? No July 01, 2024 8:41pm Do you have a Healthcare Power of Datastage Architect? No July 03, 2024 1:43pm Do you have a Healthcare Power of Datastage Architect? No July 10, 2024 11:58am Do you have a Healthcare Power of Datastage Architect? No July 21, 2024 1:00am Do you have a Healthcare Power of Datastage Architect? No August 11, 2024 10:27am Do you have a Healthcare Power of Datastage Architect? No August 20, 2024 6:53pm Advance Directive Response Recorded Date/ Time Living Will No July 01, 2024 8:41pm Do you have a Healthcare Power of Datastage Architect? No July 01, 2024 8:41pm Do you have a Healthcare Power of Datastage Architect? No July 03, 2024 1:43pm Do you have a Healthcare Power of Datastage Architect? No July 10, 2024 11:58am Do you have a Healthcare Power of Datastage Architect? No July 21, 2024 1:00am Do you have a Healthcare Power of Datastage Architect? No August 11, 2024 10:27am Do you have a Healthcare Power of Datastage Architect? No August 20, 2024 6:53pm Do you have a Healthcare Power of Datastage Architect? No September 11, 2024 9:31pm Advance Directive Response Recorded Date/ Time Living Will No July 01, 2024 8:41pm Do you have a Healthcare Power of Datastage Architect? No July 01, 2024 8:41pm Do you have a Healthcare Power of Datastage Architect? No July 03, 2024 1:43pm Do you have a Healthcare Power of Datastage Architect? No July 10, 2024 11:58am Do you have a Healthcare Power of Datastage Architect? No July 21, 2024 1:00am Do you have a Healthcare Power of Datastage Architect? No August 11, 2024 10:27am Do you have a Healthcare Power of Datastage Architect? No August 20, 2024 6:53pm Do you have a Healthcare Power of Datastage Architect? No September 12, 2024 12:29am Date Activated Date Inactivated Comments 09/21/2024 6:55 AM Question Answer Comments Plan of Care: Code Status Discussion Completed Decision Maker: Patient Date Activated Date Inactivated Comments 09/21/2024 6:55 AM Advance Directive Response Recorded Date/ Time Do you have a Healthcare Power of Datastage Architect? No August 11, 2024 10:27am Do you have a Healthcare Power of Datastage Architect? No August 20, 2024 6:53pm Do you have a Healthcare Power of Datastage Architect? No September 12, 2024 12:29am Do you have a Healthcare Power of Datastage Architect? No October 24, 2024 9:44am Advance Directive Response Recorded Date/ Time Do you have a Healthcare Power of Datastage Architect? No August 11, 2024 10:27am Do you have a Healthcare Power of Datastage Architect? No August 20, 2024 6:53pm Do you have a Healthcare Power of Datastage Architect? No September 12, 2024 12:29am Do you have a Healthcare Power of Datastage Architect? No November 25, 2024 3:18pm Do you have a Healthcare Power of Datastage Architect? No October 24, 2024 9:44am Advance Directive Response Recorded Date/ Time Do you have a Healthcare Power of Datastage Architect? No August 11, 2024 10:27am Do you have a Healthcare Power of Datastage Architect? No August 20, 2024 6:53pm Do you have a Healthcare Power of Datastage Architect? No September 12, 2024 12:29am Do you have a Healthcare Power of Datastage Architect? No November 25, 2024 3:18pm Do you have a Healthcare Power of Datastage Architect? No October 24, 2024 9:44am Do you have a Healthcare Power of Datastage Architect? No November 27, 2024 10:56pm Advance Directive Response Recorded Date/ Time Do you have a Healthcare Power of Datastage Architect? No August 20, 2024 6:53pm Do you have a Healthcare Power of Datastage Architect? No September 12, 2024 12:29am Do you have a Healthcare Power of Datastage Architect? No November 25, 2024 3:18pm Do you have a Healthcare Power of Datastage Architect? No October 24, 2024 9:44am Do you have a Healthcare Power of Datastage Architect? No November 27, 2024 10:56pm Advance Directive Response Recorded Date/ Time Do you have a Healthcare Power of Datastage Architect? No September 12, 2024 12:29am Do you have a Healthcare Power of Datastage Architect? No November 25, 2024 3:18pm Do you have a Healthcare Power of Datastage Architect? No December 28, 2024 12:02pm Do you have a Healthcare Power of Datastage Architect? No October 24, 2024 9:44am Do you have a Healthcare Power of Datastage Architect? No November 27, 2024 10:56pm Advance Directive Response Recorded Date/ Time Do you have a Healthcare Power of Datastage Architect? No November 25, 2024 2:18pm Do you have a Healthcare Power of Datastage Architect? No December 28, 2024 11:02am Do you have a Healthcare Power of Datastage Architect? No October 24, 2024 8:44am Do you have a Healthcare Power of Datastage Architect? No November 27, 2024 9:56pm Do you have a Healthcare Power of Datastage Architect? No January 09, 2025 12:18am Chief Complaint and Reason for Visit Chief [...] 2024 8:24a m GERD (gastroesophageal reflux disease) [facility] 2024 8:24am Elevated liver enzymes August 20, 2024 5: 47pm Abdominal pain August 20, 2024 5:47p m Dilated pancreatic duct August 20, 2024 5 :47pm GERD (gastroesophageal reflux disease) [facility] 2024 5:47pm Elevated lipase September 11, 2024 [...] 5 :47pm GERD (gastroesophageal reflux disease) J [facility] 2024 5:47pm Elevated lipase September 11, 2024 [...] RUQ PAIN W/ WORSENING LFT'S August 21, 5:24pm RUQ PAIN W/ WORSENING LFT'S August 22, 025 12:11pm RUQ PAIN W/ WORSENING LFT'S August 23, 5:25pm RUQ PAIN W/ WORSENING LFT'S August 23, 8:04pm RUQ PAIN W/ WORSENING LFT'S August [...] AFTER RECENT FAILED September 14, 2024 11:02am [facility] September 18, 2024 12:47 pm Pacer [...] 2024 8:24a m GERD (gastroesophageal reflux disease) [facility] 2024 8:24am Elevated liver enzymes August 20, [...] 12:12pm History of biliary stent insertion Septe mber 2024 12:12pm S/P ERCP November 23, 2024 [...] 7pm Abd pain November 25, 2024 2:41pm Chief Complaint Admit Date Test Result August [...] 7pm Abd pain November 25, 2024 2:41pm SOB November 27, 2024 10:49pm Chief Complaint Admit Date RUQ PAIN W/ WORSENING LFT'S August 20 [...] 7pm Abd pain November 25, 2024 2:41pm SOB November 27, 2024 10:49pm 3 M FU/Test Results December 12, 2024 1: 56pm INT LAB ORDERS December 12, 2024 2: 51pm Reason for Visit Admit Date Elevated liver enzymes August 20, 2024 5: [...] 12:12pm History of biliary stent insertion Septe mber 2024 12:12pm S/P ERCP November 23, 2024 12:12pm Diarrhea December 12, 2024 1: 56pm Elevated lipase December 12, 2024 1: 56pm Pulmonary hypertension December 12, 2024 1:56pm Chronic abdominal pain December 12, 2024 1:56pm Abdominal pain December 12, 2024 1: 56pm GERD (gastroesophageal reflux disease) O ctober 2024 1:56pm Chief Complaint Admit Date RUQ PAIN W/ WORSENING LFT'S August 20 [...] 7pm Abd pain November 25, 2024 2:41pm SOB November 27, 2024 10:49pm 3 M FU/Test Results December 12, 2024 1: 56pm INT LAB ORDERS December 12, 2024 2: 51pm Chief Complaint Admit Date INTRACTABLE ABDOMINAL PAIN AFTER RECENT FAILED September 11, 2024 11:43pm INTRACTABLE ABDOMINAL PAIN AFTER RECENT FAILED September 12, 2024 9:58am INTRACTABLE ABDOMINAL PAIN AFTER RECENT FAILED September 12, 2024 6:34pm INTRACTABLE ABDOMINAL PAIN AFTER RECENT FAILED September 13, 2024 12:37pm INTRACTABLE ABDOMINAL PAIN AFTER RECENT FAILED September 14, 2024 11:02am [facility] September 18, 2024 12:47 pm Pacer Check Remote October 03, 2024 9:00 am 3 mos ICD f/u October 03, 2024 11:2 5am HF October 17, 2024 3:1 7pm Abd pain November 25, 2024 2:41pm SOB November 27, 2024 10:49pm 3 M FU/Test Results December 12, 2024 1: 56pm INT LAB ORDERS December 12, 2024 2: 51pm Pacer Check Remote December 26, 2024 9 :00am 3 mos ICD check December 26, 2024 1 1:19am CHEST PAIN December 28, 2024 1 0:50am CHEST PAIN December 28, 2024 3 :46pm CHEST PAIN December 29, 2024 9 :25am CHEST PAIN December 30, 2024 1 1:24am CHEST PAIN December 31, 2024 1 :04pm Reason for Visit Admit Date Elevated lipase September 11, 2024 11:43 pm [...] 12:12pm S/P ERCP November 23, 2024 12:12pm Diarrhea December 12, 2024 1: 56pm Elevated lipase December 12, 2024 1: 56pm Pulmonary hypertension December 12, 2024 1:56pm Chronic abdominal pain December 12, 2024 1:56pm Abdominal pain December 12, 2024 1: 56pm GERD (gastroesophageal reflux disease) O ct2024 1:56pm HFrEF (heart failure with reduced ejecti on fraction) December 26, 2024 11:19am ICD (implantable cardioverter-defibrilla tor) in place December 26, 2024 11:19am Chest pain December 28, 2024 1 0:50am Chief Complaint Admit Date Pacer Check Remote October 03, 2024 9:00 am 3 mos ICD f/u October 03, 2024 11:2 5am HF October 17, 2024 3:1 7pm Abd pain November 25, 2024 2:41pm SOB November 27, 2024 10:49pm 3 M FU/Test Results December 12, 2024 1: 56pm INT LAB ORDERS December 12, 2024 2: 51pm Pacer Check Remote December 26, 2024 9 :00am 3 mos ICD check December 26, 2024 1 1:19am CHEST PAIN December 28, 2024 1 0:50am CHEST PAIN December 28, 2024 3 :46pm CHEST PAIN December 29, 2024 9 :25am CHEST PAIN December 30, 2024 1 1:24am CHEST PAIN December 31, 2024 1 :04pm palpitations January 09, 2025 1 :16am Reason for Visit Admit Date HFrEF (heart failure with reduced ejecti on [...] 12:12pm S/P ERCP November 23, 2024 12:12pm Diarrhea December 12, 2024 1: 56pm Elevated lipase December 12, 2024 1: 56pm Pulmonary hypertension December 12, 2024 1:56pm Chronic abdominal pain December 12, 2024 1:56pm Abdominal pain December 12, 2024 1: 56pm GERD (gastroesophageal reflux disease) O ctober 2024 1:56pm HFrEF (heart failure with reduced ejecti on fraction) December 26, 2024 11:19am ICD (implantable cardioverter-defibrilla tor) in place December 26, 2024 11:19am Chest pain December 28, 2024 1 0:50am Additional Source Comments INFORMATION SOURCE (unrecogn ized section and content) DATE CREATED AUTHOR 08/27/2017 [facility] DATE CREATED AUTHOR AUTHOR'S ORGANIZ ATION 08/29/2017 [facility] DATE CREATED AUTHOR AUTHOR'S ORGANIZ ATION 03/22/2020 [employer] DATE CREATED AUTHOR AUTHOR'S ORGANIZ ATION 03/23/2020 [facility] DATE CREATED AUTHOR AUTHOR'S ORGANIZ ATION 04/17/2020 [facility] DATE CREATED AUTHOR AUTHOR'S ORGANIZ ATION 11/04/2020 [facility] DATE CREATED AUTHOR AUTHOR'S ORGANIZ ATION 04/28/2021 [facility] DATE CREATED AUTHOR AUTHOR'S ORGANIZ ATION 11/12/2023 [facility] ([place] DATE CREATED AUTHOR AUTHOR'S ORGANIZ ATION 01/07/2024 [facility] DATE CREATED AUTHOR AUTHOR'S ORGANIZ ATION 08/27/2024 [facility] DATE CREATED AUTHOR AUTHOR'S ORGANIZ ATION 12/28/2024 [facility] DATE CREATED AUTHOR AUTHOR'S ORGANIZ ATION 12/28/2024 [facility] DATE CREATED AUTHOR AUTHOR'S ORGANIZ ATION 01/01/2025 [facility] DATE CREATED AUTHOR AUTHOR'S ORGANIZ ATION 01/10/2025 [facility] DATE CREATED AUTHOR AUTHOR'S ORGANIZ ATION 01/15/2025 [facility] DATE CREATED AUTHOR AUTHOR'S ORGANIZ ATION 01/16/2025 [facility] DATE CREATED AUTHOR AUTHOR'S ORGANIZ ATION 01/20/2025 [facility] Goals (unrecognized section and content) Goals [...] Active Rubin Briggs MD Emergency Provider Active Gasfitter Relationship Specialty Start Date End Date Dex Wilkinson MD [address] [facility] [address] [place] [phone] PCP - General Family Medicine [...] 2024 End: July 24, 2024 Bogdan Bates PROBATE CLERK, PROBATE CLERK-C Other Provider Active Start : July 21, [...] Active Start: July 21, 2024 Bogdan Bates PROBATE CLERK, PROBATE CLERK-C Other Provider Active Start : July 21, [...] Active Start: July 21, 2024 Bogdan Bates PROBATE CLERK, PROBATE CLERK-C Other Provider Active Start : July 21, [...] Active Start: July 22, 2024 Bogdan Bates PROBATE CLERK, PROBATE CLERK-C Other Provider Active Start : July 22, [...] Active Start: July 22, 2024 Bogdan Bates PROBATE CLERK, PROBATE CLERK-C Other Provider Active Start : July 22, [...] Active Start: July 23, 2024 Bogdan Bates PROBATE CLERK, PROBATE CLERK-C Other Provider Active Start : July 23, [...] Provider Active Start: July 23, 2024 Dr. Sregio Umaña DO Other Provider Active Start: July [...] Active Start: July 23, 2024 Bogdan Bates PROBATE CLERK, PROBATE CLERK-C Other Provider Active Start : July 23, [...] Active Start: July 24, 2024 Bogdan Bates PROBATE CLERK, PROBATE CLERK-C Other Provider Active Start : July 24, 2024 Xochitl BUCKLEY, MARCIO Other Provider Active Start: July 24, 2024 MARCIO Lemus Other Provider Active Start: July 24, 2024 Dr. Willian Ovalles DO Attending Provider Active Start: July 24, 2024 Dr. Willian Ovalles DO Other Provider Active Star t: July 24, 2024 Gasfitter Relationship Specialty Start Date End Date Dex Wilkinson MD [address] [address] PCP - General 10/19/06 Asuncion Cheung, machinery erector Coordinator 05/14/14 Gasfitter Relationship Specialty Start Date End Date Dex Wilkinson MD [address] [address] PCP - General 10/19/06 Asuncion Cheung, machinery erector Coordinator 05/14/14 Gasfitter Relationship Specialty Start Date End Date Dex Wilkinson MD [facility] [address] PCP - General 10/19/06 Asuncion Cheung, machinery erector Coordinator 05/14/14 Team Status: Active Member Role [...] August 08, 2024 End: August 08, 2024 Gasfitter Relationship Specialty Start Date End Date Dex Wilkinson MD [facility] [phone] PCP - General Family Medicine 07/01/24 Team [...] August 08, 2024 End: August 08, 2024 Gasfitter Relationship Specialty Start Date End Date Dex Wilkinson MD [address] [place] [phone] PCP - General Family Medicine 08/15/24 Team [...] Attending Provider Active Start: August 20, 2024 Gasfitter Relationship Specialty Start Date End Date Dex Wilkinson MD [facility] [place] [phone] PCP - General Family Medicine 08/15/24 Team [...] 21, 2024 End: July 24, 2024 Dr. Segrio Umaña DO Admit Provider Active Start: July [...] 2024 End: July 24, 2024 Bogdan Bates PROBATE CLERK, PROBATE CLERK-C Other Provider Active Start : July 21, [...] Active Start: July 21, 2024 Bogdan Bates PROBATE CLERK, PROBATE CLERK-C Other Provider Active Start : July 21, 2024 Xochitl Bourne PA, PA Other Provider Active Start: July 21, 2024 MARCIO Lemus Other Provider Active Start: July 21, 2024 Dr. Willian Ovalles , Attending Provider [...] Active Start: July 21, 2024 Bogdan Bates PROBATE CLERK, PROBATE CLERK-C Other Provider Active Start : July 21, [...] Active Start: July 22, 2024 Bogdan Bates PROBATE CLERK, PROBATE CLERK-C Other Provider Active Start : July 22, [...] Active Start: July 22, 2024 Bogdan Bates PROBATE CLERK, PROBATE CLERK-C Other Provider Active Start : July 22, 2024 Xochitl Bourne PA, PA Other Provider Active Start: July 22, 2024 MARCIO Lemus Other Provider Active Start: July 22, 2024 Dr. Willian Ovalles , Other Provider Active Star t: July 22, 2024 Team Status: Active Member Role/Relationship Status Dates Dr. Dex Wilknison MD Primary Care Provider Active Start: July [...] Active Start: July 23, 2024 Bogdan Bates PROBATE CLERK, PROBATE CLERK-C Other Provider Active Start : July 23, [...] Other Provider Active Start: July 23, 2024 Bodgan Bates PROBATE CLERK, PROBATE CLERK-C Other Provider Active Start : July 23, [...] Active Start: July 24, 2024 Bogdan Bates PROBATE CLERK, PROBATE CLERK-C Other Provider Active Start : July 24, [...] Start: September 13, 2024 Dr. Gage Sharma , DO Emergency [...] September 18, 2024 End: September 18, 2024 Gasfitter Relationship Specialty Start Date End Date Dex Wilkinson MD [facility] [phone] PCP - General Family Medicine 08/15/24 Gasfitter Relationship Specialty Start Date End Date Dex Wilkinson MD [facility] [address] [phone] PCP - General Family Medicine [...] Sujatha Olea Attending Provider Active Start: J hiro 2024 End: October 03, 2024 Team Status: [...] Sujatha Olea Attending Provider Active Start: J hiro 2024 End: October 03, 2024 Team Status: Inactive Member Role/Relationship Status Dates Dr. Dex Wilkinson MD Primary Care Provider Active Start: October 17, 2024 End: October 17, 2024 Dr. Dex Wilkinson MD Referring Provider Active Start: October 17, 2024 End: October 17, 2024 Dr. Mercy Bishop MD Attending Provider Active Start: October 17, 2024 End: October 17, 2024 Gasfitter Relationship Specialty Start Date End Date Dex Wilkinson MD [address] [place], [place] [phone] PCP - General Family Medicine 08/15/24 Team [...] Sujatha Olea Attending Provider Active Start: Angelo [email or web address] End: October 03, 2024 Team Status: Inactive [...] November 25, 2024 End: November 25, 2024 Team Status: Inactive Member Role/Relationship Status Dates Dr. Dex Wilkinson MD Primary Care Provider Active Start: November 27, 2024 End: November 28, 2024 Rubin Briggs MD Emergency Provider Active Star t: November 27, 2024 End: November 28, 2024 Gasfitter Relationship Specialty Start Date End Date Dex Wilkinson MD [address] [place], [place] [phone] PCP - General Family Medicine 07/01/24 Team Status: Active Member Role/Relationship Status Dates Dr. Dex Wilkinson MD Primary care physician Activ e Team Status: Inactive Member Role/Relationship Status Dates Dr. Dex Wilkinson MD Primary care physician Activ e Start: August 20, 2024 End: August 24, 2024 Dr. Simona Fernandez DO Emergency Departm ent Physician Active Start: August 20, 2024 End: August 24, 2024 Dr. Lopez Larios DO Admitting physician Active Start: August 20 End: August 24, 2024 Dr. Lopez Larios DO Nurse Practitioner Active Start: August 20 End: August 24, 2024 Dr. Taylor Tejeda MD Attending physician Active Start: August 20, 2024 End: August 24, 2024 Team Status: Active Member Role/Relationship Status Dates Dr. Dex Wilkinson MD Primary care physician Activ e Start: August 20, 2024 Dr. Simona Fernandez DO Emergency Departm ent Physician Active Start: August 20, 2024 Dr. Lopez Larios DO Admitting physician Active Start: August 20 Dr. Lopez Larios DO Nurse Practitioner Active Start: August 20 Dr. Taylor Tejeda MD Referring Provider Active Start: August 20, 2024 Dr. Taylor Tejeda MD Nurse Practitioner Active Start: August 20, 2024 Dr. Quang Myles , Attending physician Active Start: August 20, 2024 Team Status: Active Member Role/Relationship Status Dates Dr. Dex Wilkinson MD Primary care physician Activ e Start: August 21, 2024 Dr. Simona Fernandez DO Emergency Departm ent Physician Active Start: August 21, 2024 Dr. Lopez Larios DO Admitting physician Active Start: August 21 Dr. Lopez Larios DO Nurse Practitioner Active Start: August 21 Dr. Taylor Tejeda MD Attending physician Active Start: August 21, 2024 Dr. Taylor Tejeda MD Nurse Practitioner Active Start: August 21, 2024 Team Status: Active Member Role/Relationship Status Dates Dr. Dex Wilkinson MD Primary care physician Activ e Start: August 21, 2024 Dr. Simona Fernandez DO Emergency Departm ent Physician Active Start: August 21, 2024 Dr. Lopez Larios DO Admitting physician Active Start: August 21 Dr. Lopez Larios DO Nurse Practitioner Active Start: August 21 Dr. Taylor Tejeda MD Referring Provider Active Start: August 21, 2024 Dr. Taylor Tejeda MD Nurse Practitioner Active Start: August 21, 2024 Dr. Quang Myles DO Attending physician Active Start: August 21, 2024 Team Status: Active Member Role/Relationship Status Dates Dr. Dex Wilkinson MD Primary care physician Activ e Start: August 22, 2024 Dr. Simona Fernandez DO Emergency Departm ent Physician Active Start: August 22, 2024 Dr. Lopez Larios DO Admitting physician Active Start: August 22 Dr. Lopez Larios DO Nurse Practitioner Active Start: August 22 Dr. Taylor Tejeda MD Attending physician Active Start: August 22, 2024 Dr. Taylor Tejeda MD Nurse Practitioner Active Start: August 22, 2024 Team Status: Active Member Role/Relationship Status Dates Dr. Dex Wilkinson MD Primary care physician Activ e Start: August 23, 2024 Dr. Simona Fernandez DO Emergency Departm ent Physician Active Start: August 23, 2024 Dr. Lopez Larios DO Admitting physician Active Start: August 23 Dr. Lopez Larios DO Nurse Practitioner Active Start: August 23 Dr. Taylor Tejeda MD Attending physician Active Start: August 23, 2024 Dr. Taylor Tejeda MD Nurse Practitioner Active Start: August 23, 2024 Team Status: Active Member Role/Relationship Status Dates Dr. Dex Wilkinson MD Primary care physician Activ e Start: August 23, 2024 Dr. Simona Fernandez DO Emergency Departm ent Physician Active Start: August 23, 2024 Dr. Lopez Larios DO Admitting physician Active Start: August 23 Dr. Lopez Larios DO Nurse Practitioner Active Start: August 23 Dr. Taylor Tejeda MD Referring Provider Active Start: August 23, 2024 Dr. Taylor Tejeda MD Nurse Practitioner Active Start: August 23, 2024 Dr. Quang Myles DO Attending physician Active Start: August 23, 2024 Team Status: Active Member Role/Relationship Status Dates Dr. Dex Wilkinson MD Primary care physician Activ e Start: August 24, 2024 Dr. Simona Fernandez , DO Emergency Departm ent Physician Active Start: August 24, 2024 Dr. Lopez Larios DO Admitting physician Active Start: August 24 Dr. Lopez Larios , Nurse Practitioner Active Start: August 24 Dr. Taylor Tejeda MD Attending physician Active Start: August 24, 2024 Dr. Taylor Tejeda MD Nurse Practitioner Active Start: August 24, 2024 Team Status: Inactive Member Role/Relationship Status Dates Dr. Dex Wilkinson MD Primary care physician Activ e Start: August 27, 2024 End: August 27, 2024 Dr. Quang Myles DO Attending physician Active Start: August 27, 2024 End: August 27, 2024 Dr. Quang Myles DO Referring Provider Active Start: August 27, 2024 End: August 27, 2024 Team Status: Inactive Member Role/Relationship Status Dates Dr. Dex Wilkinson MD Primary care physician Activ e Start: August 28, 2024 End: August 28, 2024 Dr. Quang Myles DO Attending physician Active Start: August 28, 2024 End: August 28, 2024 Dr. Quang Myles DO Referring Provider Active Start: August 28, 2024 End: August 28, 2024 Team Status: Inactive Member Role/Relationship Status Dates Dr. Dex Wilkinson MD Primary care physician Activ e Start: September 11, 2024 End: September 14, 2024 Dr. Gage Sharma , DO Emergency Department Physician Active Start: September 11, 2024 End: September 14, 2024 Dr. Sergio Umaña , DO Admitting physician Active Start: September 11, 2024 End: September 14, 2024 Dr. Sergio Umaña , DO Nurse Practitioner Active Start: September 11, 2024 End: September 14, 2024 Dr. Emerson Sierra MD Attending physician Active Start: September 11, 2024 End: September 14, 2024 Team Status: Active Member Role/Relationship Status Dates Dr. Dex Wilkinson MD Primary care physician Activ e Start: September 12, 2024 Dr. Gage Sharma , DO Emergency Department Physician Active Start: September 12, 2024 Dr. Sergio Umaña , DO Admitting physician Active Start: September 12, 2024 Dr. Sergio Umaña , DO Nurse Practitioner Active Start: September 12, 2024 Dr. Emerson Sierra MD Attending physician Active Start: September 12, 2024 Dr. Emerson Sierra MD Nurse Practitioner Active Start: September 12, 2024 Team Status: Active Member Role/Relationship Status Dates Dr. Dex Wilkinson MD Primary care physician Activ e Start: September 12, 2024 Dr. Gage Sharma , DO Emergency Department Physician Active Start: September 12, 2024 Dr. Sergio Umaña , DO Admitting physician Active Start: September 12, 2024 Dr. Sergio Umaña , DO Nurse Practitioner Active Start: September 12, 2024 Dr. Emerson Sierra MD Referring Provider Active Start: September 12, 2024 Dr. Emerson Sierra MD Nurse Practitioner Active Start: September 12, 2024 Dr. Quang Myles , Attending physician Active Start: September 12, 2024 Team Status: Active Member Role/Relationship Status Dates Dr. Dex Wilkinson MD Primary care physician Activ e Start: September 13, 2024 Dr. Gage Sharma , DO Emergency Department Physician Active Start: September 13, 2024 Dr. Sergio Umaña , DO Admitting physician Active Start: September 13, 2024 Dr. Sergio Umaña DO Nurse Practitioner Active Start: September 13, 2024 Dr. Emerson Sierra MD Attending physician Active Start: September 13, 2024 Dr. Emerson Sierra MD Nurse Practitioner Active Start: September 13, 2024 Team Status: Active Member Role/Relationship Status Dates Dr. Dex Wilkinson MD Primary care physician Activ e Start: September 14, 2024 Dr. Gage Sharma DO Emergency Department Physician Active Start: September 14, 2024 Dr. Sergio Umaña DO Admitting physician Active Start: September 14, 2024 Dr. Sergio Umaña DO Nurse Practitioner Active Start: September 14, 2024 Dr. Emerson Sierra MD Attending physician Active Start: September 14, 2024 Dr. Emerson Sierra MD Nurse Practitioner Active Start: September 14, 2024 Team Status: Inactive Member Role/Relationship Status Dates Dr. Dex Wilkinson MD Primary care physician Activ e Start: September 18, 2024 End: September 18, 2024 Dr. Dex Wilkinson MD Referring Provider Active Start: September 18, 2024 End: September 18, 2024 MARCIO Camp Attending physician Active Start: September 18, 2024 End: September 18, 2024 Team Status: Inactive Member Role/Relationship Status Dates Dr. Dex Wilkinson MD Primary care physician Activ e Start: October 03, 2024 End: October 03, 2024 Dr. Jose Francisco Santamaria MD Attending physician Active Start: October 03, 2024 End: October 03, 2024 Team Status: Inactive Member Role/Relationship Status Dates Dr. Dex Wilkinson MD Primary care physician Activ e Start: October 03, 2024 End: October 03, 2024 Dr. Dex Wilkinson MD Referring Provider Active Start: October 03, 2024 End: October 03, 2024 Sujatha Olea Attending physician Active Start: October 03, 2024 End: October 03, 2024 Team Status: Inactive Member Role/Relationship Status Dates Dr. Dex Wilkinson MD Primary care physician Activ e Start: October 17, 2024 End: October 17, 2024 Dr. Dex Wilkinson MD Referring Provider Active Start: October 17, 2024 End: October 17, 2024 Dr. Mercy Bishop MD Attending physician Active Start: October 17, 2024 End: October 17, 2024 Team Status: Inactive Member Role/Relationship Status Dates Dr. Dex Wilkinson MD Primary care physician Activ e Start: November 23, 2024 End: November 23, 2024 Dr. Dex Wilkinson MD Referring Provider Active Start: November 23, 2024 End: November 23, 2024 Dr. Quang Myles DO Attending physician Active Start: November 23, 2024 End: November 23, 2024 Team Status: Active Member Role/Relationship Status Dates Dr. Dex Wilkinson MD Primary care physician Activ e Start: November 23, 2024 Dr. Dex Wilkinson MD Referring Provider Active Start: November 23, 2024 Dr. Quang Myles DO Attending physician Active Start: November 23, 2024 Dr. Quang Mlyes DO Nurse Practitioner Active Start: November 23, 2024 Team Status: Inactive Member Role/Relationship Status Dates Dr. Dex Wilkinson MD Primary care physician Activ e Start: November 25, 2024 End: November 25, 2024 Dr. Carlos Nair DO Attending physician Active Start: November 25, 2024 End: November 25, 2024 Dr. Carlos Nair DO Emergency Departm ent Physician Active Start: November 25, 2024 End: November 25, 2024 Team Status: Inactive Member Role/Relationship Status Dates Dr. Dex Wilkinson MD Primary care physician Activ e Start: November 27, 2024 End: November 28, 2024 Rubin Briggs MD Attending physician Active Sta rt: November 27, 2024 End: November 28, 2024 Rubin Briggs MD Emergency Department Physician Active Start: November 27, 2024 End: November 28, 2024 Team Status: Inactive Member Role/Relationship Status Dates Dr. Dex Wilkinson MD Primary care physician Activ e Start: December 12, 2024 End: December 12, 2024 Dr. Dex Wilkinson MD Referring Provider Active Start: December 12, 2024 End: December 12, 2024 Dr. Quang Myles DO Attending physician Active Start: December 12, 2024 End: December 12, 2024 Team Status: Active Member Role/Relationship Status Dates Dr. Dex Wilkinsno MD Primary care physician Activ e Start: December 12, 2024 Dr. Quang Myles DO Attending physician Active Start: December 12, 2024 Dr. Quang Myles DO Referring Provider Active Start: December 12, 2024 Team Status: Active Member Role/Relationship Status Dates Dr. Dex Wilkinson MD Primary care physician Activ e Start: August 21, 2024 Dr. Simona Fernandez DO Emergency Departm ent Physician Active Start: August 21, 2024 Dr. Lopez Larios DO Admitting physician Active Start: August 21 Dr. Lopez Larios DO Nurse Practitioner Active Start: August 21 Dr. Taylor Tejeda MD Attending physician Active Start: August 21, 2024 Dr. Taylor Tejeda MD Nurse Practitioner Active Start: August 21, 2024 Team Status: Active Member Role/Relationship Status Dates Dr. Dex Wilkinson MD Primary care physician Activ e Start: August 21, 2024 Dr. Simona Fernandez DO Emergency Departm ent Physician Active Start: August 21, 2024 Dr. Lopez Larios DO Admitting physician Active Start: August 21 Dr. Lopez Larios DO Nurse Practitioner Active Start: August 21 Dr. Taylor Tejeda MD Referring Provider Active Start: August 21, 2024 Dr. Taylor Tejeda MD Nurse Practitioner Active Start: August 21, 2024 Dr. Quang Myles DO Attending physician Active Start: August 21, 2024 Team Status: Active Member Role/Relationship Status Dates Dr. Dex Wilkinson MD Primary care physician Activ e Start: August 22, 2024 Dr. Simona Fernandez DO Emergency Departm ent Physician Active Start: August 22, 2024 Dr. Lopez Larios DO Admitting physician Active Start: August 22 Dr. Lopez Larios DO Nurse Practitioner Active Start: August 22 Dr. Taylor Tejeda MD Attending physician Active Start: August 22, 2024 Dr. Taylor Tejeda MD Nurse Practitioner Active Start: August 22, 2024 Team Status: Active Member Role/Relationship Status Dates Dr. Dex Wilkinson MD Primary care physician Activ e Start: August 23, 2024 Dr. Simona Fernandez DO Emergency Departm ent Physician Active Start: August 23, 2024 Dr. Lopez Lraios DO Admitting physician Active Start: August 23 Dr. Lopez Larios DO Nurse Practitioner Active Start: August 23 Dr. Taylor Tejeda MD Attending physician Active Start: August 23, 2024 Dr. Taylor Tejeda MD Nurse Practitioner Active Start: August 23, 2024 Team Status: Active Member Role/Relationship Status Dates Dr. Dex Wilkinson MD Primary care physician Activ e Start: August 23, 2024 Dr. Simona Fernandez DO Emergency Departm ent Physician Active Start: August 23, 2024 Dr. Lopez Larios DO Admitting physician Active Start: August 23 Dr. Lopez Larios DO Nurse Practitioner Active Start: August 23 Dr. Taylor Tejeda MD Referring Provider Active Start: August 23, 2024 Dr. Taylor Tejeda MD Nurse Practitioner Active Start: August 23, 2024 Dr. Quang Myles DO Attending physician Active Start: August 23, 2024 Team Status: Active Member Role/Relationship Status Dates Dr. Dex Wilkinson MD Primary care physician Activ e Start: August 24, 2024 Dr. Simona Fernandez , DO Emergency Departm ent Physician Active Start: August 24, 2024 Dr. Lopez Larios DO Admitting physician Active Start: August 24 Dr. Lopez Larios , Nurse Practitioner Active Start: August 24 Dr. Taylor Tejeda MD Attending physician Active Start: August 24, 2024 Dr. Taylor Tejeda MD Nurse Practitioner Active Start: August 24, 2024 Team Status: Inactive Member Role/Relationship Status Dates Dr. Dex Wilkinson MD Primary care physician Activ e Start: August 27, 2024 End: August 27, 2024 Dr. Quang Myles DO Attending physician Active Start: August 27, 2024 End: August 27, 2024 Dr. Quang Myles DO Referring Provider Active Start: August 27, 2024 End: August 27, 2024 Team Status: Inactive Member Role/Relationship Status Dates Dr. Dex Wilkinson MD Primary care physician Activ e Start: August 28, 2024 End: August 28, 2024 Dr. Quang Myles DO Attending physician Active Start: August 28, 2024 End: August 28, 2024 Dr. Quang Myles DO Referring Provider Active Start: August 28, 2024 End: August 28, 2024 Team Status: Inactive Member Role/Relationship Status Dates Dr. Dex Wilkinson MD Primary care physician Activ e Start: September 11, 2024 End: September 14, 2024 Dr. Gage Sharma , DO Emergency Department Physician Active Start: September 11, 2024 End: September 14, 2024 Dr. Serigo Umaña , DO Admitting physician Active Start: September 11, 2024 End: September 14, 2024 Dr. Sergio Umaña , DO Nurse Practitioner Active Start: September 11, 2024 End: September 14, 2024 Dr. Emerson Sierra MD Attending physician Active Start: September 11, 2024 End: September 14, 2024 Team Status: Active Member Role/Relationship Status Dates Dr. Dex Wilkinson MD Primary care physician Activ e Start: September 12, 2024 Dr. Gage Sharma DO Emergency Department Physician Active Start: September 12, 2024 Dr. Sergio Umaña , DO Admitting physician Active Start: September 12, 2024 Dr. Sergio Umaña , DO Nurse Practitioner Active Start: September 12, 2024 Dr. Emerson Sierra MD Attending physician Active Start: September 12, 2024 Dr. Emerson Sierra MD Nurse Practitioner Active Start: September 12, 2024 Team Status: Active Member Role/Relationship Status Dates Dr. Dex Wilkinson MD Primary care physician Activ e Start: September 12, 2024 Dr. Gage Sharma DO Emergency Department Physician Active Start: September 12, 2024 Dr. Sergio Umaña , DO Admitting physician Active Start: September 12, 2024 Dr. Sergio Umaña , DO Nurse Practitioner Active Start: September 12, 2024 Dr. Emerson Sierra MD Referring Provider Active Start: September 12, 2024 Dr. Emerson Sierra MD Nurse Practitioner Active Start: September 12, 2024 Dr. Quang Myles , Attending physician Active Start: September 12, 2024 Team Status: Active Member Role/Relationship Status Dates Dr. Dex Wilkinson MD Primary care physician Activ e Start: September 13, 2024 Dr. Gage Sharma DO Emergency Department Physician Active Start: September 13, 2024 Dr. Sergio Umaña DO Admitting physician Active Start: September 13, 2024 Dr. Sergio Umaña DO Nurse Practitioner Active Start: September 13, 2024 Dr. Emerson Sierra MD Attending physician Active Start: September 13, 2024 Dr. Emerson Sierra MD Nurse Practitioner Active Start: September 13, 2024 Team Status: Active Member Role/Relationship Status Dates Dr. Dex Wilkinson MD Primary care physician Activ e Start: September 14, 2024 Dr. Gage Sharma DO Emergency Department Physician Active Start: September 14, 2024 Dr. Sergio Umaña DO Admitting physician Active Start: September 14, 2024 Dr. Sergio Umaña DO Nurse Practitioner Active Start: September 14, 2024 Dr. Emerson Sierra MD Attending physician Active Start: September 14, 2024 Dr. Emerson Sierra MD Nurse Practitioner Active Start: September 14, 2024 Team Status: Inactive Member Role/Relationship Status Dates Dr. Dex Wilkinson MD Primary care physician Activ e Start: September 18, 2024 End: September 18, 2024 Dr. Dex Wilkinson MD Referring Provider Active Start: September 18, 2024 End: September 18, 2024 MARCIO Camp Attending physician Active Start: September 18, 2024 End: September 18, 2024 Team Status: Inactive Member Role/Relationship Status Dates Dr. Dex Wilkinson MD Primary care physician Activ e Start: October 03, 2024 End: October 03, 2024 Dr. Jose Francisco Santamaria MD Attending physician Active Start: October 03, 2024 End: October 03, 2024 Team Status: Inactive Member Role/Relationship Status Dates Dr. Dex Wilkinson MD Primary care physician Activ e Start: October 03, 2024 End: October 03, 2024 Dr. Dex Wilkinson MD Referring Provider Active Start: October 03, 2024 End: October 03, 2024 Sujatha Olea Attending physician Active Start: October 03, 2024 End: October 03, 2024 Team Status: Inactive Member Role/Relationship Status Dates Dr. Dex Wilkinson MD Primary care physician Activ e Start: October 17, 2024 End: October 17, 2024 Dr. Dex Wilkinson MD Referring Provider Active Start: October 17, 2024 End: October 17, 2024 Dr. Mercy Bishop MD Attending physician Active Start: October 17, 2024 End: October 17, 2024 Team Status: Inactive Member Role/Relationship Status Dates Dr. Dex Wilkinson MD Primary care physician Activ e Start: November 23, 2024 End: November 23, 2024 Dr. Dex Wilkinson MD Referring Provider Active Start: November 23, 2024 End: November 23, 2024 Dr. Quang Myles DO Attending physician Active Start: November 23, 2024 End: November 23, 2024 Team Status: Active Member Role/Relationship Status Dates Dr. Dex Wilkinson MD Primary care physician Activ e Start: November 23, 2024 Dr. Dex Wilkinson MD Referring Provider Active Start: November 23, 2024 Dr. Quang Myles DO Attending physician Active Start: November 23, 2024 Dr. Quang Myles DO Nurse Practitioner Active Start: November 23, 2024 Team Status: Inactive Member Role/Relationship Status Dates Dr. Dex Wilkinson MD Primary care physician Activ e Start: November 25, 2024 End: November 25, 2024 Dr. Carlos Nair DO Attending physician Active Start: November 25, 2024 End: November 25, 2024 Dr. Carlos Nair DO Emergency Departm ent Physician Active Start: November 25, 2024 End: November 25, 2024 Team Status: Inactive Member Role/Relationship Status Dates Dr. Dex Wilkinson MD Primary care physician Activ e Start: November 27, 2024 End: November 28, 2024 Rubin Briggs MD Attending physician Active Sta rt: November 27, 2024 End: November 28, 2024 Rubin Briggs MD Emergency Department Physician Active Start: November 27, 2024 End: November 28, 2024 Team Status: Inactive Member Role/Relationship Status Dates Dr. Dex Wilkinson MD Primary care physician Activ e Start: December 12, 2024 End: December 12, 2024 Dr. Dex Wilkinson MD Referring Provider Active Start: December 12, 2024 End: December 12, 2024 Dr. Quang Myles DO Attending physician Active Start: December 12, 2024 End: December 12, 2024 Team Status: Inactive Member Role/Relationship Status Dates Dr. Dex Wilkinson MD Primary care physician Activ e Start: December 12, 2024 End: December 12, 2024 Dr. Quang Myles DO Attending physician Active Start: December 12, 2024 End: December 12, 2024 Dr. Quang Myles DO Referring Provider Active Start: December 12, 2024 End: December 12, 2024 Gasfitter Relationship Specialty Start Date End Date Dex Wilkinson MD [address] [place] [id number] PCP - General Family Medicine 08/15/24 Gasfitter Relationship Specialty Start Date End Date Dex Wilkinson MD [address] [place], [place] [id number] PCP - General Family Medicine 07/01/24 Team Status: Inactive Member Role/Relationship Status Dates Dr. Dex Wilkinson MD Primary care physician Activ e Start: September 11, 2024 End: September 14, 2024 Dr. Gage Sharma , DO Emergency Department Physician Active Start: September 11, 2024 End: September 14, 2024 Dr. Sergio Umaña , DO Admitting physician Active Start: September 11, 2024 End: September 14, 2024 Dr. Sergio Umaña , DO Nurse Practitioner Active Start: September 11, 2024 End: September 14, 2024 Dr. Emerson Sierra MD Attending physician Active Start: September 11, 2024 End: September 14, 2024 Team Status: Active Member Role/Relationship Status Dates Dr. Dex Wilkinson MD Primary care physician Activ e Start: September 12, 2024 Dr. Gage Sharma DO Emergency Department Physician Active Start: September 12, 2024 Dr. Sergio Umaña , DO Admitting physician Active Start: September 12, 2024 Dr. Sergio Umaña , DO Nurse Practitioner Active Start: September 12, 2024 Dr. Emerson Sierra MD Attending physician Active Start: September 12, 2024 Dr. Emerson Sierra MD Nurse Practitioner Active Start: September 12, 2024 Team Status: Active Member Role/Relationship Status Dates Dr. Dex Wilkinson MD Primary care physician Activ e Start: September 12, 2024 Dr. Gage Sharma DO Emergency Department Physician Active Start: September 12, 2024 Dr. Sergio Umaña , DO Admitting physician Active Start: September 12, 2024 Dr. Sergio Umaña , DO Nurse Practitioner Active Start: September 12, 2024 Dr. Emerson Sierra MD Referring Provider Active Start: September 12, 2024 Dr. Emerson Sierra MD Nurse Practitioner Active Start: September 12, 2024 Dr. Quang Myles , DO Attending physician Active Start: September 12, 2024 Team Status: Active Member Role/Relationship Status Dates Dr. Dex Wilkinson MD Primary care physician Activ e Start: September 13, 2024 Dr. Gage Sharma DO Emergency Department Physician Active Start: September 13, 2024 Dr. Sergio Umaña , DO Admitting physician Active Start: September 13, 2024 Dr. Sergio Umaña , DO Nurse Practitioner Active Start: September 13, 2024 Dr. Emerson Sierra MD Attending physician Active Start: September 13, 2024 Dr. Emerson Sierra MD Nurse Practitioner Active Start: September 13, 2024 Team Status: Active Member Role/Relationship Status Dates Dr. Dex Wilkinson MD Primary care physician Activ e Start: September 14, 2024 Dr. Gage Sharma DO Emergency Department Physician Active Start: September 14, 2024 Dr. Sergio Umaña , DO Admitting physician Active Start: September 14, 2024 Dr. Sergio Umaña , Nurse Practitioner Active Start: September 14, 2024 Dr. Emerson Sierra MD Attending physician Active Start: September 14, 2024 Dr. Emerson Sierra MD Nurse Practitioner Active Start: September 14, 2024 Team Status: Inactive Member Role/Relationship Status Dates Dr. Dex Wilkinson MD Primary care physician Activ e Start: September 18, 2024 End: September 18, 2024 Dr. Dex Wilkinson MD Referring Provider Active Start: September 18, 2024 End: September 18, 2024 MARCIO aCmp Attending physician Active Start: September 18, 2024 End: September 18, 2024 Team Status: Inactive Member Role/Relationship Status Dates Dr. Dex Wilkinson MD Primary care physician Activ e Start: October 03, 2024 End: October 03, 2024 Dr. Jose Francisco Santamaria MD Attending physician Active Start: October 03, 2024 End: October 03, 2024 Team Status: Inactive Member Role/Relationship Status Dates Dr. Dex Wilkinson MD Primary care physician Activ e Start: October 03, 2024 End: October 03, 2024 Dr. Dex Wilkinson MD Referring Provider Active Start: October 03, 2024 End: October 03, 2024 Sujatha Olea Attending physician Active Start: October 03, 2024 End: October 03, 2024 Team Status: Inactive Member Role/Relationship Status Dates Dr. Dex Wilkinson MD Primary care physician Activ e Start: October 17, 2024 End: October 17, 2024 Dr. Dex Wilkinson MD Referring Provider Active Start: October 17, 2024 End: October 17, 2024 Dr. Mercy Bishop MD Attending physician Active Start: October 17, 2024 End: October 17, 2024 Team Status: Inactive Member Role/Relationship Status Dates Dr. Dex Wilkinson MD Primary care physician Activ e Start: November 23, 2024 End: November 23, 2024 Dr. Dex Wilkinson MD Referring Provider Active Start: November 23, 2024 End: November 23, 2024 Dr. Quang Myles DO Attending physician Active Start: November 23, 2024 End: November 23, 2024 Team Status: Active Member Role/Relationship Status Dates Dr. Dex Wilkinson MD Primary care physician Activ e Start: November 23, 2024 Dr. Dex Wilkinson MD Referring Provider Active Start: November 23, 2024 Dr. Quang Myles DO Attending physician Active Start: November 23, 2024 Dr. Quang Myles DO Nurse Practitioner Active Start: November 23, 2024 Team Status: Inactive Member Role/Relationship Status Dates Dr. Dex Wilkinson MD Primary care physician Activ e Start: November 25, 2024 End: November 25, 2024 Dr. Carlos Nair DO Attending physician Active Start: November 25, 2024 End: November 25, 2024 Dr. Carlos Nair DO Emergency Departm ent Physician Active Start: November 25, 2024 End: November 25, 2024 Team Status: Inactive Member Role/Relationship Status Dates Dr. Dex Wilkinson MD Primary care physician Activ e Start: November 27, 2024 End: November 28, 2024 Rubin Briggs MD Attending physician Active Sta rt: November 27, 2024 End: November 28, 2024 Rubin Briggs MD Emergency Department Physician Active Start: November 27, 2024 End: November 28, 2024 Team Status: Inactive Member Role/Relationship Status Dates Dr. Dex Wilkinson MD Primary care physician Activ e Start: December 12, 2024 End: December 12, 2024 Dr. Dex Wilkinson MD Referring Provider Active Start: December 12, 2024 End: December 12, 2024 Dr. Quang Myles DO Attending physician Active Start: December 12, 2024 End: December 12, 2024 Team Status: Inactive Member Role/Relationship Status Dates Dr. Dex Wilkinson MD Primary care physician Activ e Start: December 12, 2024 End: December 12, 2024 Dr. Quang Myles DO Attending physician Active Start: December 12, 2024 End: December 12, 2024 Dr. Quang Myles DO Referring Provider Active Start: December 12, 2024 End: December 12, 2024 Team Status: Inactive Member Role/Relationship Status Dates Dr. Dex Wilkinson MD Primary care physician Activ e Start: December 26, 2024 End: December 26, 2024 Dr. Jose Francisco Santamaria MD Attending physician Active Start: December 26, 2024 End: December 26, 2024 Team Status: Inactive Member Role/Relationship Status Dates Dr. Dex Wilkinson MD Primary care physician Activ e Start: December 26, 2024 End: December 26, 2024 Dr. Dex Wilkinson MD Referring Provider Active Start: December 26, 2024 End: December 26, 2024 Dr. Jose Francisco Santamaria MD Attending physician Active Start: December 26, 2024 End: December 26, 2024 Team Status: Inactive Member Role/Relationship Status Dates Dr. Dex Wilkinson MD Primary care physician Activ e Start: December 28, 2024 End: December 31, 2024 Dr. Edwin Cuenca DO Emergency Departmen t Physician Active Start: December 28, 2024 End: December 31, 2024 Dr. Carlos Ashford MD Admitting physician Active Start: December 28, 2024 End: December 31, 2024 Dr. Carlos Ashford MD Nurse Practitioner Active Start: December 28, 2024 End: December 31, 2024 Dr. Emerson Sierra MD Attending physician Active Start: December 28, 2024 End: December 31, 2024 Team Status: Active Member Role/Relationship Status Dates Dr. Dex Wilkinson MD Primary care physician Activ e Start: December 28, 2024 Dr. Edwin Cuenca DO Emergency Departmen t Physician Active Start: December 28, 2024 Dr. Carlos Ashford MD Admitting physician Active Start: December 28, 2024 Dr. Carlos Ashford MD Attending physician Active Start: December 28, 2024 Dr. Carlos Ashford MD Nurse Practitioner Active Start: December 28, 2024 Team Status: Active Member Role/Relationship Status Dates Dr. Dex Wilkinson MD Primary care physician Activ e Start: December 29, 2024 Dr. Edwin Cuenca DO Emergency Departmen t Physician Active Start: December 29, 2024 Dr. Carlos Ashford MD Admitting physician Active Start: December 29, 2024 Dr. Carlos Ashford MD Nurse Practitioner Active Start: December 29, 2024 Dr. Emerson Sierra MD Attending physician Active Start: December 29, 2024 Dr. Emerson Sierra MD Nurse Practitioner Active Start: December 29, 2024 Dr. Jose Francisco Santamaria MD Nurse Practitioner Active S tart: December 29, 2024 Team Status: Active Member Role/Relationship Status Dates Dr. Dex Wilkinson MD Primary care physician Activ e Start: December 30, 2024 Dr. Edwin Cuenca DO Emergency Departmen t Physician Active Start: December 30, 2024 Dr. Carlos Ashford MD Admitting physician Active Start: December 30, 2024 Dr. Carlos Ashford MD Nurse Practitioner Active Start: December 30, 2024 Dr. Emerson Sierra MD Attending physician Active Start: December 30, 2024 Dr. Emerson Sierra MD Nurse Practitioner Active Start: December 30, 2024 Team Status: Active Member Role/Relationship Status Dates Dr. Dex Wilkinson MD Primary care physician Activ e Start: December 31, 2024 Dr. Edwin Cuenca DO Emergency Departmen t Physician Active Start: December 31, 2024 Dr. Carlos Ashford MD Admitting physician Active Start: December 31, 2024 Dr. Carlos Ashford MD Nurse Practitioner Active Start: December 31, 2024 Dr. Emerson Sierra MD Attending physician Active Start: December 31, 2024 Dr. Emerson Sierra MD Nurse Practitioner Active Start: December 31, 2024 Gasfitter Relationship Specialty Start Date End Date Dex Wilkinson MD [facility] [phone] PCP - General Family Medicine 08/15/24 Gasfitter Relationship Specialty Start Date End Date Dex Wilkinson MD [address] [place] [id number] PCP - General Family Medicine 08/15/24 Team Status: Inactive Member Role/Relationship Status Dates Dr. Dex Wilkinson MD Primary care physician Activ e Start: October 03, 2024 End: October 03, 2024 Dr. Jose Francisco Santamaria MD Attending physician Active Start: October 03, 2024 End: October 03, 2024 Team Status: Inactive Member Role/Relationship Status Dates Dr. Dex Wilkinson MD Primary care physician Activ e Start: October 03, 2024 End: October 03, 2024 Dr. Dex Wilkinson MD Referring Provider Active Start: October 03, 2024 End: October 03, 2024 Sujatha Olea Attending physician Active Start: October 03, 2024 End: October 03, 2024 Team Status: Inactive Member Role/Relationship Status Dates Dr. Dex Wilkinson MD Primary care physician Activ e Start: October 17, 2024 End: October 17, 2024 Dr. Dex Wilkinson MD Referring Provider Active Start: October 17, 2024 End: October 17, 2024 Dr. Mercy Bishop MD Attending physician Active Start: October 17, 2024 End: October 17, 2024 Team Status: Inactive Member Role/Relationship Status Dates Dr. Dex Wilkinson MD Primary care physician Activ e Start: November 23, 2024 End: November 23, 2024 Dr. Dex Wilkinson MD Referring Provider Active Start: November 23, 2024 End: November 23, 2024 Dr. Quang Myles DO Attending physician Active Start: November 23, 2024 End: November 23, 2024 Team Status: Active Member Role/Relationship Status Dates Dr. Dex Wilkinson MD Primary care physician Activ e Start: November 23, 2024 Dr. Dex Wilkinson MD Referring Provider Active Start: November 23, 2024 Dr. Quang Myles DO Attending physician Active Start: November 23, 2024 Dr. Quang Myles DO Nurse Practitioner Active Start: November 23, 2024 Team Status: Inactive Member Role/Relationship Status Dates Dr. Dex Wilkinson MD Primary care physician Activ e Start: November 25, 2024 End: November 25, 2024 Dr. Carlos Nair DO Attending physician Active Start: November 25, 2024 End: November 25, 2024 Dr. Carlos Nair DO Emergency Departm ent Physician Active Start: November 25, 2024 End: November 25, 2024 Team Status: Inactive Member Role/Relationship Status Dates Dr. Dex Wilkinson MD Primary care physician Activ e Start: November 27, 2024 End: November 28, 2024 Rubin Briggs MD Attending physician Active Sta rt: November 27, 2024 End: November 28, 2024 Rubin Briggs MD Emergency Department Physician Active Start: November 27, 2024 End: November 28, 2024 Team Status: Inactive Member Role/Relationship Status Dates Dr. Dex Wilkinson MD Primary care physician Activ e Start: December 12, 2024 End: December 12, 2024 Dr. Dex Wilkinson MD Referring Provider Active Start: December 12, 2024 End: December 12, 2024 Dr. Quang Myles DO Attending physician Active Start: December 12, 2024 End: December 12, 2024 Team Status: Inactive Member Role/Relationship Status Dates Dr. Dex Wilkinson MD Primary care physician Activ e Start: December 12, 2024 End: December 12, 2024 Dr. Quang Myles DO Attending physician Active Start: December 12, 2024 End: December 12, 2024 Dr. Quang Myles DO Referring Provider Active Start: December 12, 2024 End: December 12, 2024 Team Status: Inactive Member Role/Relationship Status Dates Dr. Dex Wilkinson MD Primary care physician Activ e Start: December 26, 2024 End: December 26, 2024 Dr. Jose Francisco Santamaria MD Attending physician Active Start: December 26, 2024 End: December 26, 2024 Team Status: Inactive Member Role/Relationship Status Dates Dr. Dex Wilkinson MD Primary care physician Activ e Start: December 26, 2024 End: December 26, 2024 Dr. Dex Wilkinson MD Referring Provider Active Start: December 26, 2024 End: December 26, 2024 Dr. Jose Francisco Santamaria MD Attending physician Active Start: December 26, 2024 End: December 26, 2024 Team Status: Inactive Member Role/Relationship Status Dates Dr. Dex Wilkinson MD Primary care physician Activ e Start: December 28, 2024 End: December 31, 2024 Dr. Edwin Cuenca DO Emergency Departmen t Physician Active Start: December 28, 2024 End: December 31, 2024 Dr. Carlos Ashford MD Admitting physician Active Start: December 28, 2024 End: December 31, 2024 Dr. Carlos Ashford MD Nurse Practitioner Active Start: December 28, 2024 End: December 31, 2024 Dr. Emerson Sierra MD Attending physician Active Start: December 28, 2024 End: December 31, 2024 Team Status: Active Member Role/Relationship Status Dates Dr. Dex Wilkinson MD Primary care physician Activ e Start: December 28, 2024 Dr. Edwin Cuenca DO Emergency Departmen t Physician Active Start: December 28, 2024 Dr. Carlos Ashford MD Admitting physician Active Start: December 28, 2024 Dr. Carlos Ashford MD Attending physician Active Start: December 28, 2024 Dr. Carlos Ashford MD Nurse Practitioner Active Start: December 28, 2024 Team Status: Active Member Role/Relationship Status Dates Dr. Dex Wilkinson MD Primary care physician Activ e Start: December 29, 2024 Dr. Edwin Cuenca DO Emergency Departmen t Physician Active Start: December 29, 2024 Dr. Carlos Ashford MD Admitting physician Active Start: December 29, 2024 Dr. Carlos Ashford MD Nurse Practitioner Active Start: December 29, 2024 Dr. Emerson Sierra MD Attending physician Active Start: December 29, 2024 Dr. Emerson Sierra MD Nurse Practitioner Active Start: December 29, 2024 Dr. Jose Francisco Santamaria MD Nurse Practitioner Active S tart: December 29, 2024 Team Status: Active Member Role/Relationship Status Dates Dr. Dex Wilkinson MD Primary care physician Activ e Start: December 30, 2024 Dr. Edwin Cuenca DO Emergency Departmen t Physician Active Start: December 30, 2024 Dr. Carlos Ashford MD Admitting physician Active Start: December 30, 2024 Dr. Carlos Ashford MD Nurse Practitioner Active Start: December 30, 2024 Dr. Emerson Sierra MD Attending physician Active Start: December 30, 2024 Dr. Emerson Sierra MD Nurse Practitioner Active Start: December 30, 2024 Team Status: Active Member Role/Relationship Status Dates Dr. Dex Wilkinson MD Primary care physician Activ e Start: December 31, 2024 Dr. Edwin Cuenca , DO Emergency Departmen t Physician Active Start: December 31, 2024 Dr. Carlos Ashford MD Admitting physician Active Start: December 31, 2024 Dr. Carlos Ashford MD Nurse Practitioner Active Start: December 31, 2024 Dr. Emerson Sierra MD Attending physician Active Start: December 31, 2024 Dr. Emerson Sierra MD Nurse Practitioner Active Start: December 31, 2024 Team Status: Inactive Member Role/Relationship Status Dates Dr. Dex Wilkinson MD Primary care physician Activ e Start: January 09, 2025 End: January 09, 2025 Dr. Babar Wood , DO Emergency Departme nt Physician Active Start: January 09, 2025 End: January 09, 2025 Reason for Visit (unrecogniz ed section and content) Reason Onset Date Comments Shortness of Breath 07/04/2023 Reason Onset Date Comments Abdominal Pain 07/01/2024 Reason Comments Spirometry Specialty Diagnoses / Procedures Referred By Contac t Referred To Contact HOSP INPATIENT Diagnoses Endocarditis Procedures [id number] [address] [place] [address] Phone: tel: Referral ID Status Reason Start Date Expiration Date Visits Re quested Visits Authorized [id number] 1 Reason Onset Date Comments Transition Of Care 07/30/2024 TCM Pharmacy- Hospital discharge 07/27/24 Reason Onset Date Comments Back Pain 08/10/2024 Reason Comments Abdominal Pain Pt states she starte d gaining water weight on Tuesday, was put Lasix Tuesday, she has gained 10lbs since Tuesday. Mid abd pain worse since this AM. Hx of cardiomyopathy, liver disease, and pancreatitis. Sees [place] in [facility] and was told to come to ED if she does not drop any weight. C/o Sob with activity since yesterday Reason Comments Congestive Heart Failure Specialty Diagnoses / Procedures Referred By Contac t Referred To Contact Pharmacy Diagnoses Cardiomyopathy, hypertrophic nonobstructive (Multi) Radu Kay MD [address] [facility] [address] [place] [address] Phone: tel: fax: Referral ID Status Reason Start Date Expiration Date Visits Requested Visits Authorized [id number] Authorized Specialty Services Required 09/19/2024 09/19/2025 1 1 Reason Onset Date Comments Breathing Problem 11/27/2024 Reason Onset Date Comments Chest Pain 12/27/2024 Source Comments (unrecognize d section and content) In the event this informatio n is protected by the Federal Confidentiality of Alcohol and Drug Abuse Patient Records regulations: The Federal rules restrict any use of the information to criminally investigate or prosecute any alcohol or drug abuse patient.[facility] the event this information is protected by the Federal Confidentiality of Alcohol and Drug Abuse Patient Records regulations: The Federal rules restrict any use of the information to criminally investigate or prosecute any alcohol or drug abuse patient.[facility] the event this information is protected by the Federal Confidentiality of Alcohol and Drug Abuse Patient Records regulations: The Federal rules restrict any use of the information to criminally investigate or prosecute any alcohol or drug abuse patient.[facility] the event this information is protected by the Federal Confidentiality of Alcohol and Drug Abuse Patient Records regulations: The Federal rules restrict any use of the information to criminally investigate or prosecute any alcohol or drug abuse patient.[facility] Scheduled Active and Recently Administ ered Medications (unrecognized section and content) Medication Order 09/21/2024 09/22/2024 09/23/2024 ALPRAZolam (Xanax) tablet 0.5 mg 0.5 mg, oral, 2 times daily, First dose on Tue09/21/24 at 2100 2131 (Given - Provider: Bethany Little RN) 823 (Given - Provider: Kaela Trejo RN)2045 (Given - Provider: Anisha Sheldon RN) 829 (Given - Provider: Kaela Trejo RN)2099 (Due) [...] 2045 (Given - Provider: Anisha Sheldon RN) 830 (Given - Provider: Kaela Trejo RN)2099 (Due) empagliflozin (Jardiance) tablet 10 mg 10 mg, oral, Daily, First dose on Tue09/21/24 at 0900, Please hold this med 72 hours prior to an NPO event in duration of 12 hours or more. 913 (Given - Provider: Alexa Brown RN) 0824 (Given - Provider: Kaela Trejo RN) 0830 (Given - Provider: Kaela Trejo RN) enoxaparin (Lovenox) syringe 40 mg 40 mg, subcutaneous, Daily, First dose on Tue09/22/24 at 1200 1224 (Given - Provider: Kaela [...] - Provider: Bethany Little RN - Comment: /) 1030 (Given - Provider: Kaela Trejo RN)2047 (Given - Provider: Anisha Sheldon, JAJA) 0952 (Given - Provider: Kaela Trejo RN)2200 (Due) HYDROmorphone (Dilaudid) injection 0.5 mg (COMPLETED) 0.5 mg, intravenous, Once, On Tue09/21/24 at 0000, For 1 dose 001 (Given - Provider: Fe Esparza, JAJA) HYDROmorphone [...] 1 dose 013 (Given - Provider: Asuncion Villa) ketorolac (Toradol) injection 15 mg (COMPLETED) 15 mg, intravenous, Once, On Tue09/22/24 at 1530, For 1 dose 1518 (Given [...] 25 mg, oral, Daily, First dose on Tue09/22/24 at 1530, Do not crush or chew. [...] 1 tablet, oral, Nightly, First dose on Tue09/22/24 at 2100 2045 (Given - Provider: Anisha Sheldon, RN) 2099 (Due) sucralfate (Carafate) tablet 1 g 1 g, oral, 2 times daily, First dose on Tue09/21/24 at 0900, Give on an empty stomach (1 hr before meals, at bedtime). Separate all other meds by at least 2 hours (exception: antacids may be given only 30 minutes apart). 0802 (Given - Provider: Alexa Brown RN)2018 (Given - Provider: Bethany Little RN) 08 (Given - Provider: Kaela Trejo RN)204 (Given - Provider: Anisha Sheldon RN) 0830 (Given - Provider: Kaela Trejo RN)2100 (Due) [...] Kassidy Estrada RN)0920 (Given - Provider: Alexa Brown, JAJA)1226 (Given - Provider: Eliana Stapleton RN)1656 (Given - Provider: Alexa Brown, JAJA)2019 (Given - Provider: Bethany Little, JAJA) 0046 (Given - Provider: Bethany Little, JAJA)0438 (Given - Provider: Bethany Little, JAJA)0755 (Given - Provider: Kaela Trejo RN)1056 (Given [...] via IV Push, administer over 3-5 minutes. Scheduled Medication Order 12/25/2024 12/26/2024 12/27/2024 ALPRAZolam (Xanax) tablet 0.5 mg 0.5 mg, oral, 2 times daily, First dose on Tue12/27/24 at 0145 0209 (Given - Provid er: Ana Iglesias RN)0845 (Given - Provider: Zaida White RN)2100 (Due) aspirin chewable tablet 324 mg (COMPLETED) 324 mg (rounded from 325 mg), oral, Once, On Niru 12/27/24 at 1045, For 1 dose, Pre-procedural 1149 (Given - Provid er: Zaida White RN) empagliflozin (Jardiance) tablet 10 mg 10 mg, oral, Daily, First dose on Niru 12/27/24 at 0900, Please hold this med 72 hours prior to an NPO event in duration of 12 hours or more. 0845 (Given - Provid er: Zaida White RN) furosemide (Lasix) injection 20 mg (COMPLETED) 20 mg, intravenous, Once, On Niru 12/27/24 at 0930, For 1 dose, For doses less than or = 160 mg, give IV push at maximum rate of 40 mg/min For doses greater than 160 mg, dilute in 50 mL and administer at 4 mg/min 1006 (Given - Provid er: Zaida White RN) furosemide (Lasix) tablet 20 mg 20 mg, oral, Daily, First dose on Niru 12/27/24 at 0900 0846 (Not Given - Pr ovider: Zaida White RN - Reason: Patient/family refused) metoprolol succinate XL (Toprol-XL) 24 hr tablet 25 mg 25 mg, oral, Daily, First dose on Niru 12/27/24 at 0900, Do not crush or chew. 0845 (Given - Provid er: Zaida White RN) spironolactone (Aldactone) tablet 25 mg 25 mg, oral, Daily, First dose on Niru 12/27/24 at 0900 0845 (Given - Provid er: Zaida White RN) sucralfate (Carafate) tablet 1 g 1 g, oral, 2 times daily, First dose on Niru 12/27/24 at 0145, Give on an empty stomach (1 hr before meals, at bedtime). Separate all other meds by at least 2 hours (exception: antacids may be given only 30 minutes apart). 0209 (Given - Provid er: Ana Iglesias RN)0845 (Given - Provider: Zaida White RN)2100 (Due) PRN Medication Order 12/25/2024 12/26/2024 12/27/2024 acetaminophen (Tylenol) oral liquid 650 mg(Linked Group 1) 650 mg, oral, Every 4 hours PRN, pain mild (1-3), first line, Starting on Niru 12/27/24 at 0124, Give oral liquid per feeding tube if present. acetaminophen (Tylenol) suppository 650 mg(Linked Group 1) 650 mg, rectal, Every 4 hours PRN, pain mild (1-3), first line, Starting on Niru 12/27/24 at 0124, Give rectally if unable to administer by mouth or feeding tube., If ordered PRN for pain, nurse is permitted to administer this medication for higher pain scores based on patient preference? Yes acetaminophen (Tylenol) tablet 650 mg(Linked Group 1) 650 mg, oral, Every 4 hours PRN, pain mild (1-3), first line, Starting on Niru 12/27/24 at 0124, If ordered PRN for pain, nurse is permitted to administer this medication for higher pain scores based on patient preference? Yes albuterol 2.5 mg /3 mL (0.083 %) nebulizer solution 2.5 mg 2.5 mg, nebulization, Every 6 hours PRN, wheezing, shortness of breath, Starting on Niru 12/27/24 at 0717 1137 (Due)1809 (Give n - Provider: Kristine Adams, STUDENT LIFE COORDINATOR) fentaNYL PF (Sublimaze) injection (CANCELED) As needed, Starting on Niru 12/27/24 at 1338, Intraprocedure 1338 (Given - Provid er: Ajay Simon RN)1346 (Given - Provider: Ajay Simon RN)1348 (Given - Provider: Ajay Simon RN) HYDROmorphone (Dilaudid) injection 0.5 mg 0.5 mg, intravenous, Every 6 hours PRN, pain severe (7-10), first line, Starting on Niru 12/27/24 at 0029 0038 (Given - Provid er: Ana Iglesias RN)0745 (Given - Provider: Zaida White, JAJA)1639 (Given - Provider: Zaida White, JAJA) iohexol (OMNIPaque) 350 mg iodine/mL solution (CANCELED) As needed, Starting on Niru 12/27/24 at 1400, Intraprocedure 1400 (Given - Provid er: Jaxson Osorio MD) ketorolac (Toradol) injection 15 mg 15 mg, intravenous, Every 6 hours PRN, pain moderate (4-6), first line, Starting on Niru 12/27/24 at 0911, For 5 days 1006 (Given - Provid er: Zaida White RN) lidocaine (Xylocaine) 20 mg/mL (2 %) injection (CANCELED) As needed, Starting on Niru 12/27/24 at 1339, Intraprocedure 1339 (Given - Provid er: Ajay Simon RN - Comment: right radial)1342 (Given - Provider: Jaxson Osorio MD - Comment: right groin) magnesium hydroxide (Milk of Magnesia) 400 mg/5 mL suspension 30 mL 30 mL, oral, Daily PRN, constipation, first line, Starting on Niru 12/27/24 at 0124, Contact provider if no bowel movement in past 48 hours. Follow administration with 8 ounces of water. methylPREDNISolone sod succinate (SOLU-Medrol) injection (CANCELED) As needed, Starting on Niru 12/27/24 at 1411, Intraprocedure 1411 (Given - Provid er: Jaleesa Ivan RN) midazolam (Versed) injection (CANCELED) As needed, Starting on Niru 12/27/24 at 1338, Intraprocedure 1338 (Given - Provid er: Ajay Simon RN)1346 (Given - Provider: Ajay Simon RN)1348 (Given - Provider: Ajay Simon RN) nitroglycerin (Nitrostat) SL tablet 0.4 mg 0.4 mg, sublingual, Every 5 min PRN, chest pain, Starting on Niru 12/27/24 at 0029, May administer up to 3 doses per episode. 0040 (Not Given - Pr ovider: Ana Iglesias RN - Reason: Other) ondansetron (Zofran) injection 4 mg(Linked Group 2) 4 mg, intravenous, Every 8 hours PRN, nausea/vomiting, first line, Starting on Niru 12/27/24 at 0124, Administer IV if patient unable to take oral tablet. When administering via IV Push, administer over 3-5 minutes. ondansetron ODT (Zofran-ODT) disintegrating tablet 4 mg(Linked Group 2) 4 mg, oral, Every 8 hours PRN, nausea/vomiting, first line, Starting on Niru 12/27/24 at 0124, 1st Line. Patient should allow tablet to dissolve on tongue. Do not remove from blister pack until just before administering. If inadequate response within 60 minutes, proceed to next-line agent for same PRN reason or contact provider if no further options ordered. zolpidem (Ambien) tablet 10 mg 10 mg, oral, Nightly PRN, sleep, Starting on Niru 12/27/24 at 0124 0209 (Given - Provid er: Ana Iglesias RN) Linked Groups Order Group 1: acetaminophen (Tylenol) tablet 650 mgJump to med 650 mg, oral, Every 4 hours PRN, pain mild (1-3), first line, Starting on Niru 12/27/24 at 0124, If ordered PRN for pain, nurse is permitted to administer this medication for higher pain scores based on patient preference? Yes Or acetaminophen (Tylenol) oral liquid 650 mgJump to med 650 mg, oral, Every 4 hours PRN, pain mild (1-3), first line, Starting on Niru 12/27/24 at 0124, Give oral liquid per feeding tube if present. Or acetaminophen (Tylenol) suppository 650 mgJump to med 650 mg, rectal, Every 4 hours PRN, pain mild (1-3), first line, Starting on Niru 12/27/24 at 0124, Give rectally if unable to administer by mouth or feeding tube., If ordered PRN for pain, nurse is permitted to administer this medication for higher pain scores based on patient preference? Yes Group 2: ondansetron ODT (Zofran-ODT) disintegrating tablet 4 mgJump to med 4 mg, oral, Every 8 hours PRN, nausea/vomiting, first line, Starting on Niru 12/27/24 at 0124, 1st Line. Patient should allow tablet to dissolve on tongue. Do not remove from blister pack until just before administering. If inadequate response within 60 minutes, proceed to next-line agent for same PRN reason or contact provider if no further options ordered. Or ondansetron (Zofran) injection 4 mgJump to med 4 mg, intravenous, Every 8 hours PRN, nausea/vomiting, first line, Starting on Niru 25 at 0124, Administer IV if patient unable to take oral tablet. When administering via IV Push, administer over 3-5 minutes. Scheduled Medication Order 01/12/2025 01/13/2025 01/14/2025 ALPRAZolam (Xanax) tablet 0.5 mg 0.5 mg, oral, 2 times daily, First dose on Tue01/09/25 at 0900 0915 (Given - Provider: Salma Prieto RN)2146 (Given - Provider: Beryl Lerma RN) 0825 (Given - Provider: Jennifer Griffin RN)2022 (Given - Provider: Bonita Louis RN) 0910 (Given - Provider: Jennifer Griffin RN)2099 (Due) apixaban (Eliquis) tablet 5 mg 5 mg, oral, Every 12 hours, First dose on Tue01/11/25 at 2100 0915 (Given - Provider: Salma Prieto RN)2147 (Given - Provider: Beryl Lerma RN) 0825 (Given - Provider: Jennifer Griffin RN)2022 (Given - Provider: Bonita Louis RN) 0910 (Given - Provider: Jennifer Griffin RN)2099 (Due) dofetilide (Tikosyn) capsule 375 mcg 375 mcg, oral, Every 12 hours scheduled, First dose (after last modification) on Niru 01/10/25 at 2100, QTc monitoring required 2-3 hours after each dofetilide dose during initiation or upward titration. Contact provider if QTc exceeds 500 msec on any check., Prescriber certifies: baseline QTc before dofetilide initiation is < 440 msec (or < 500 msec if ventricular conduction abnormality): No 0915 (Given - Provider: Salma Prieto RN)2146 (Given - Provider: Beryl Lerma RN) 0825 (Given - Provider: Jennifer Griffin RN)2023 (Given - Provider: Bonita Louis RN) 0910 (Given - Provider: Jennifer Griffin RN)2099 (Due) empagliflozin (Jardiance) tablet 10 mg 10 mg, oral, Daily, First dose on Niru 01/10/25 at 1400, Please hold this med 72 hours prior to an NPO event in duration of 12 hours or more. 0915 (Given - Provider: Salma Prieto RN) 0825 (Given - Provider: Jennifer Griffin RN) 0910 (Given - Provider: Jennifer Griffin RN) ketorolac (Toradol) injection 15 mg (COMPLETED) 15 mg, intravenous, Once, On Tue01/14/25 at 1100, For 1 dose 1053 (Given - Provider: Jennifer Griffin RN) methylPREDNISolone sodium succinate (PF) (SOLU-Medrol) injection 125 mg 125 mg, intravenous, Once, On Tue01/09/25 at 1615, For 1 dose metoprolol succinate XL (Toprol-XL) 24 hr tablet 25 mg 25 mg, oral, Daily, First dose on Tue01/09/25 at 0900, DO NOT give if SBP <90 or HR <60 Do not crush or chew. 0915 (Given - Provider: Salma Prieto RN) 0825 (Given - Provider: Jennifer Griffin RN) 0910 (Given - Provider: Jennifer Griffin RN) polyethylene glycol (Glycolax, Miralax) packet 17 g 17 g, oral, Daily, First dose on Tue01/09/25 at 0900, Bowel Regimen - for prevention of constipation. 0801 (Not Given - Provider: Salma Prieto RN - Reason: Patient/family refused) 0825 (Not Given - Provider: Jennifer Griffin RN - Reason: Other - Comment: [facility] 01/12 at 1930) 0908 (Not Given - Provider: Jennifer Griffin RN - Reason: Patient/family refused) spironolactone (Aldactone) tablet 12.5 mg 12.5 mg, oral, Daily, First dose on Tue01/11/25 at 1430 0915 (Given - Provider: Salma Prieto RN) 0825 (Given - Provider: Jennifer Griffin RN) 0910 (Given - Provider: Jennifer Griffin RN) vancomycin (Vancocin) capsule 125 mg () 125 mg, oral, 4 times daily, First dose (after last modification) on Tue01/09/25 at 1300, For 15 doses, Suspected Indication (Select all that apply): Clostridium difficile, Type of Therapy: Definitive, Based on Culture, Indications: Clostridium difficile 0600 (Given - Provider: Hayley Landrum RN)1216 (Given - Provider: Salma Prieto RN)1828 (Given - Provider: Salma Prieto RN)2146 (Given - Provider: Beryl Lerma RN) zolpidem (Ambien) tablet 10 mg 10 mg, oral, Nightly, First dose on Niru 01/10/25 at 2100 2148 (Given - Provider: Beryl Lerma RN) 2022 (Given - Provider: Bonita Louis, RN) 2100 (Due) PRN Medication Order 01/12/2025 01/13/2025 01/14/2025 acetaminophen (Tylenol) tablet 975 mg 975 mg, oral, 4 times daily PRN, pain mild (1-3), first line, headaches, Starting on Tue01/09/25 at 1114, If ordered PRN for pain, nurse is permitted to administer this medication for higher pain scores based on patient preference? Yes cyclobenzaprine (Flexeril) tablet 5 mg 5 mg, oral, 3 times daily PRN, muscle spasms, Starting on Tue01/09/25 at 0656 HYDROmorphone PF (Dilaudid) injection 0.2 mg 0.2 mg, intravenous, Every 3 hours PRN, pain severe (7-10), first line, Starting on Tue01/09/25 at 0656 0248 (Given - Provider: Vivien Kaba)0600 (Given - Provider: Hayley Landrum RN)0914 (Given - Provider: Salma Prieto RN)1216 (Given - Provider: Salma Prieto RN)1530 (Given - Provider: Salma Prieto RN)1830 (Given - Provider: Salma Prieto RN)2145 (Given - Provider: Beryl Lerma RN) 0046 (Given - Provider: Beryl Lerma RN)0259 (Given - Provider: Beryl Lerma RN)0614 (Given - Provider: Beryl Lerma RN)0944 (Given - Provider: Jennifer Griffin, RN)1324 (Given - Provider: Jennifer Griffin, RN)1656 (Given - Provider: Jennifer Griffin, RN)202 (Given - Provider: Bonita Louis, JAJA)2337 (Given - Provider: Bontia Louis, RN) 0244 (Given - Provider: Bonita Louis, RN)0546 (Given - Provider: Bonita Louis, RN)1053 (Given - Provider: Jennifer Griffin RN) melatonin tablet 3 mg 3 mg, oral, Nightly PRN, sleep, Starting on Tue01/09/25 at 1114 2147 (Given - Provider: Beryl Lerma RN) ondansetron (Zofran) injection 4 mg(Linked Group 1) 4 mg, intravenous, Every 8 hours PRN, nausea/vomiting, first line, Starting on Tue01/09/25 at 0614, Administer IV if patient unable to take oral tablet. When administering via IV Push, administer over 3-5 minutes. ondansetron ODT (Zofran-ODT) disintegrating tablet 4 mg(Linked Group 1) 4 mg, oral, Every 8 hours PRN, nausea/vomiting, first line, Starting on Tue01/09/25 at 0614, 1st Line. Patient should allow tablet to dissolve on tongue. Do not remove from blister pack until just before administering. If inadequate response within 60 minutes, proceed to next-line agent for same PRN reason or contact provider if no further options ordered. sennosides-docusate sodium (Pia-Colace) 8.6-50 mg per tablet 2 tablet 2 tablet, oral, 2 times daily PRN, constipation, first line, Starting on Tue01/09/25 at 1114 Linked Groups Order Group 1: ondansetron ODT (Zofran-ODT) disintegrating tablet 4 mgJump to med 4 mg, oral, Every 8 hours PRN, nausea/vomiting, first line, Starting on Tue01/09/25 at 0614, 1st Line. Patient should allow tablet to dissolve on tongue. Do not remove from blister pack until just before administering. If inadequate response within 60 minutes, proceed to next-line agent for same PRN reason or contact provider if no further options ordered. Or ondansetron (Zofran) injection 4 mgJump to med 4 mg, intravenous, Every 8 hours PRN, nausea/vomiting, first line, Starting on Tue01/09/25 at 0614, Administer IV if patient unable to take [...] BE BASED ON THE PRIMARY CLINICAL RECORDS. [facility] [employer] [facility]. provides no warranty or guarantee of the accuracy or completeness of information in this document.
[2025-01-31 21:23] LABS: Anion Gap 12 (5-15); BUN 15 mg/dL (4-19); BUN/Creat Ratio 16.1 RATIO (10-20); Calcium,Total 9.4 mg/dL (7.6-11.0); Carbon Dioxide 21.3 mmol/L (21.0-32.0); Chloride 105 mmol/L (98-108); Estimated Creatinine Clearance 8.84 ml/min (50-250); Glucose 92 mg/dL (70-99); Potassium 4.1 mmol/L (3.3-5.1); Troponin T High Sensitivity 21 ng/L (<=14)
[2025-01-31 22:00] VITALS: BP 113/71; PULSE 60; RESP 14; TEMP 36.9; O2SAT 100
[2025-01-31 22:50] LABS: Troponin T High Sens 2 HR 21 ng/L (<=14)
[2025-01-31 23:00] VITALS: BP 120/79; PULSE 60; RESP 16; TEMP 36.9; O2SAT 100
[2025-01-31 23:36] VITALS: BP 113/77; PULSE 60; RESP 16; TEMP 36.8; O2SAT 99
[2025-01-31] MEDS: fentaNYL 100 MCG/2 ML Ampul 50 MCG IV (23:39)
== END 2025-02-01 00:12 | disposition home or self-care (01) ==
PROVIDERS: Emergency Provider Emergency Medicine; PCP Family Medicine; Visit Provider Emergency Medicine
DX: R07.9 Chest pain, unspecified (principal); I11.0 Hypertensive heart disease with heart failure; I50.21 Acute systolic (congestive) heart failure; I48.91 Unspecified atrial fibrillation; I42.1 Obstructive hypertrophic cardiomyopathy; Z86.711 Personal history of pulmonary embolism; F41.9 Anxiety disorder, unspecified; G89.29 Other chronic pain; Z87.891 Personal history of nicotine dependence; R06.02 Shortness of breath; Z90.49 Acquired absence of other specified parts of digestive tract; Z98.51 Tubal ligation status; Z85.43 Personal history of malignant neoplasm of ovary; Z85.41 Personal history of malignant neoplasm of cervix uteri; Z85.3 Personal history of malignant neoplasm of breast; Z90.10 Acquired absence of unspecified breast and nipple; Z79.899 Other long term (current) drug therapy; Z95.810 Presence of automatic (implantable) cardiac defibrillator; Z79.01 Long term (current) use of 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s
CPT/HCPCS: 71046; 80048; 84484; 85025; 93005; 96374; 96375; 99283; A4216; J2405